=== PATIENT | female | born 1955 | race Caucasian/White ===

== ENCOUNTER → 2016-09-20 | Outpatient (CLI) | payer MEDICAID ==
[~2016-09-20] MED LIST: ACHD5005 PO; ALLERGY MED PO; ALPR.25T PO; AMIT10TA6 PO; ANTI GAS PO; B 12 PO; BETH25TA PO; BSP10T PO; BSP5T PO; CALC-823 PO; CEFD300C3 PO; CELE50CA PO; CEPH500C PO; CETI10CA PO; CHOL200010 PO; CLIN-62 PO; CYCL10TA9 PO; DIAZ-345 PO; DIAZ5TAB PO; DICL500C PO; DIPH25CA79 PO; ESTR0.5T PO; ESTR10TA VG; ESTR2TAB PO; ESTR2TAB4 PO; ESTRADIOL 2 MG PO; ESTRADIOL IM; FLT05NA16; FLT05NA16 NSEACH; GABA-488 PO; GABA300C PO; GABA600T PO; GADOBUTROL 7.5 MMOL/7.5 ML (GADAVIST) VIAL IV ONE; GBPN100C PO; GBPN600T PO; HYDR-3584 PO; HYDR-3812 PO; HYDR1TAB PO; IBUP-1773 PO; KETO-22 PO; LACT1CAP62 PO; LEVO120C PO; LEVO500T2 PO; LEVO5TAB2 PO; LEVO80CA PO; LRT10T PO; MAG355OR19 PO; MAGN500C15 PO; MECL-124 PO; MELA1TAB11 PO; MELA3TAB36 PO; METH4TAB PO; METR500T PO; MIRT15TA6 PO; MOTRIN 600MG PO; MULT-35 PO; NITR-65 PO; NITR100C3 PO; NITR50CA PO; OMEP20TA2 PO; ONDA-42 SL; ONDA4TAB11 PO; ONDA8TAB6 PO; PHEN-639 PO; PRED20TA PO; PRM25T PO; PROM25SU10 PR; SCOP1PAT TD; TRAM50TA2 PO; TRZ100T PO; VILA20TA PO; VITA-37 PO; VITAMIN PO; VNL75T PO; [UNRECOGNIZED DRUG - CODE] IJ
[2016-09-20 09:38] LABS: BLOOD UREA NITROGEN 8 MG/DL (7-18); BUN/CREATININE RATIO 12; CREATININE SERUM 0.68 MG/DL (0.60-1.30); GFR ESTIMATED > 60
--- NOTE | 2016-09-20 11:21 | Diagnostic Imaging Report ---
PROCEDURE: MR imaging of the brain with and without contrast. TECHNIQUE: Multiplanar, multisequence MR imaging of the brain was performed with and without contrast. INDICATION: Unsteadiness, involuntary movements. COMPARISON: The previous MRI brain exam performed on 08/17/2014 failed to show any sign of an acute abnormality or mass lesion. FINDINGS: On this study, there is still no mass, shift of midline or hemorrhage to indicate an acute intracranial abnormality. There is no abnormal enhancement on the postcontrast series to indicate a neoplastic or infectious process either. Furthermore, there is no signal abnormality arising from the brain on the diffusion series to indicate an area of acute ischemia. The ventricles are not abnormally dilated and stable in size when compared to the previous study. There is no signal abnormality in the periventricular white matter on the FLAIR series to indicate demyelinating disease. There is mild cortical atrophy present. The degree of atrophy is consistent with the patient's age. The sella is not enlarged and expected carotid flow voids are evident bilaterally. The sinuses are generally clear. Orbits are symmetrical and within normal limits. The seventh and eighth nerve complexes are unremarkable. IMPRESSION: There is no evidence for an acute intracranial abnormality. There is no sign of a mass lesion nor is there any evidence for demyelinating disease. When compared to the previous study, there does not appear to have been any adverse change. Dictated by: Dictated on workstation # [id number]
== END ==
LOC: RAD 08:59
PROVIDERS: ATTEND Psychiatry & Neurology Neurology
DX: R27.0 Ataxia, unspecified (principal); M47.12 Other spondylosis with myelopathy, cervical region
CPT/HCPCS: 36415; 70553; 82565; 84520

== ENCOUNTER → 2016-09-27 | Outpatient (CLI) | payer MEDICAID ==
--- NOTE | 2016-09-27 12:40 | Diagnostic Imaging Report ---
PROCEDURE: MR imaging cervical spine with and without contrast. TECHNIQUE: Multiplanar and multisequence MRI of the cervical spine was performed with and without contrast. INDICATION: Ataxia. Unsteadiness and involuntary movements. History of C5-C7 spinal fusion on 01/14/2015. 6 mL of Gadavist is administered intravenously. FINDINGS: Fusion hardware is seen anteriorly with some susceptibility artifact around plate and screws along the vertebral bodies C5, C6 and C7. Assessment of osseous fusion is not sensitive on MRI with no obvious osseous bridging along the disc spaces seen on this exam. This is however better evaluated with CT if needed. There is mild anterior translation of C4 over C5 of 2 mm. There is disc desiccation at all levels. There is mild disc height loss at fusion level C5/6. The spinal cord has normal signal. There is reactive marrow changes suggested around endplates of C4/5 and C7/T1 levels. No suspicious marrow lesion or mass is identified. The foramen magnum and the upper spinal canal are widely patent. C2/3: There is no disc herniation, no spinal canal stenosis. There is mild foraminal narrowing on the right side related to facet arthropathy. No foraminal stenosis on the left. C3/4: There is a small posterolateral right disc spur complex with adjacent mild hypertrophy of the right uncovertebral joint. There is no spinal canal stenosis. There is also facet hypertrophy of moderate degree on the right side. This results in mild to moderate foraminal stenosis on the right and no significant foraminal stenosis on the left. C4/5: There is mild anterior translation of the vertebral bodies at this level. There is a spur disc complex with no spinal canal stenosis. The foramina demonstrate moderate to severe stenosis on the left and mild stenosis on the right. C5/6: There is anterior fusion changes seen. There is presumably discectomy performed at this level with remaining posterior spurs or posterior longitudinal ligament thickening resulting in moderate spinal canal stenosis reducing the AP dimension of the central canal to 8 mm. There is a more prominent posterior osteophyte seen in the left paracentral region resulting in reducing the AP dimension of the spinal canal at the left paracentral area to 6.8 mm and resulting in mild cord compression. Consider possibility of scarring in the anterior epidural space as well given the mild enhancement seen. No cord signal abnormality is seen. The neural foramina demonstrate bilateral severe foraminal stenosis from prominent uncovertebral joint hypertrophy. C6-7: Postfusion changes are seen with possibly discectomy performed at this level. There is suggestion of remaining disc material, scarring possibly given the slight enhancement or osteophytes however and associated with spinal canal stenosis of moderate degree reducing the AP dimension of the spinal canal centrally to 7.4 mm without associated significant cord compression. There is minimal flattening of the anterior margin of the spinal cord however along its left side aspect. The neural foramina at this level demonstrates severe stenosis bilaterally worse on the left side. C7/T1: There is a minimal disc herniation. There is no central canal stenosis and only mild foraminal narrowing suggested on the right side from facet hypertrophy. No significant foraminal narrowing on the left. Also within the [id number], there is prominent disc herniation at T2/T3 level seen with no associated spinal canal stenosis or cord compression. IMPRESSION: There is remaining moderate spinal canal stenosis at C5/6 and C6/7 levels appears to relate to remnants of posterior longitudinal ligament thickening and possible scarring or less likely remnant disc material components. This results in mild cord compression at C5/6 level with no cord edema. There is also multilevel neural foraminal narrowing as described. Dictated by: Dictated on workstation # [id number]
== END ==
LOC: RAD 09:35
PROVIDERS: ATTEND Psychiatry & Neurology Neurology
DX: R27.0 Ataxia, unspecified (principal); M47.12 Other spondylosis with myelopathy, cervical region
CPT/HCPCS: 72156

== ENCOUNTER 2016-10-23 13:17 | Emergency (ER) | payer MEDICAID ==
[~2016-10-23] VITALS: Ht 162.6 cm; Wt 65.8 kg
[~2016-10-23 13:17] MED LIST changes: -GADOBUTROL 7.5 MMOL/7.5 ML (GADAVIST) VIAL IV ONE; -METH4TAB PO
--- NOTE | 2016-10-23 13:59 | ED Neurological Problem ---
General Chief Complaint: Head/Cervical Problems Stated Complaint: LEFT ARM/LIPS NUMB Nursing Triage Note: PT STATES PAIN AND NUMBNESS DOWN L ARM AND L MOUTH. STATES SHE HAS HAD CERVICAL KASSANDRA/PAIN FOR A COUPLE YEARS SEES DR BORJA(NEURO) AND PT. Nursing Sepsis Screen: No Definite Risk Source: patient, RN notes reviewed Exam Limitations: no limitations History of Present Illness Time seen by provider: 13:59 Allergies and Home Medications Allergies Coded Allergies: iodine (Unverified Allergy, Severe, HIVES, 01/06/11) morphine (Unverified Allergy, Severe, HIVES, 01/06/11) Home Medications Amitriptyline HCl 10 Mg Tablet, 10 MG PO HS, #30 (Reported) Bethanechol Chloride 25 Mg Tablet, 25 MG PO ACHS, #20 1 po ac and hs for 3-5 days. Post operative urinary retention/spasm Prescribed by: KYLE CHAVEZ on 05/20/15 0843 Buspirone Hcl 10 Mg Tablet, 20 MG PO TID, #90 (Reported) TAKE 2 (10MG) TABS Calcium Carbonate 500 Mg Tablet, 500 MG PO DAILY, (Reported) Cholecalciferol 2,000 Unit Tablet, 2,000 UNIT PO DAILY, (Reported) Cyclobenzaprine Hcl 10 Mg Tablet, 10 MG PO BID, (Reported) Diazepam 5 Mg Tablet, 5 MG PO TID PRN for SPASMS, #6 Ref 0 Prescribed by: QI LAWRENCE on 05/23/152100 Estradiol 10 Mcg Tablet, 10 MCG VG TWICE WEEKLY, #9 (Reported) takes Sunday and Sunday nights Estradiol 2 Mg Tablet, 2 MG PO DAILY, (Reported) Fluticasone Propionate 16 Gm Beatrice, 1 SPRAY NSEACH DAILY, (Reported) Gabapentin 300 Mg Capsule, 600 MG PO BID, (Reported) take 2 (300mg) tabs Hydroxyzine HCl 10 Mg Tablet, 10 MG PO TID PRN for ANXIETY, (Reported) Ibuprofen 600 Mg Tablet, 600 MG PO Q6H, #80 Prescribed by: KYLE CHAVEZ on 05/20/15 0843 Lactobacillus Acidophilus 1 Each Capsule, 1 EACH PO DAILY, (Reported) Levofloxacin 500 Mg Tablet, 500 MG PO DAILY, #5 Prescribed by: DEMETRIUS RUBIO on 04/24/16 1125 Levomilnacipran Hydrochloride 120 Mg Cap.sa.24h, 120 MG PO DAILY, (Reported) Magnesium Oxide 500 Mg Capsule, 500 MG PO DAILY, (Reported) Multivitamin 1 Each Tablet, 1 EACH PO DAILY, (Reported) Ondansetron 4 Mg Tab.rapdis, 4 MG PO Q4H PRN for NAUSEA/VOMITING, #10 Ref 0 Prescribed by: QI LAWRENCE on 05/23/152100 Tramadol HCl 50 Mg Tablet, 50 MG PO Q6H PRN for PAIN, #60 Prescribed by: KYLE CHAVEZ on 05/20/15 0843 Past [id number]-Frenrb Hx Patient Social History Alcohol Use: Denies Use Recreational Drug Use: No Smoking Status: Current Everyday Smoker Recent Foreign Travel: No Contact w/Someone Who Travel: No Recent Infectious Disease Expo: No Recent Hopitalizations: Yes (depression, hysterectomy) Immunizations Up To Date Tetanus Booster (TDap): More than 5yrs PED Vaccines UTD: No Date of Pneumonia Vaccine: Mar 31, 2013 Date of Influenza Vaccine: Apr 21, 2015 Seasonal Allergies Seasonal Allergies: No Surgeries HX Surgeries: Yes (neck fusion, bladder tie up, ovarian cystectomy, cystocele/ rectocele Thurs) Surgeries: Adenoidectomy, Appendectomy, Bladder Surgery, Eye Surgery, Gallbladder, Hysterectomy, Oophorectomy, Tonsillectomy Respiratory Hx Respiratory Disorders: No Cardiovascular Hx Cardiac Disorders: Yes Cardiac Disorders: Hypertension Neurological Hx Neurological Disorders: Yes (STENOSIS OF THE SPINE) Neurological Disorders: Brain Tumor, Headaches /Migraines, Vertigo Reproductive System Hx Reproductive Disorders: No Sexually Transmitted Disease: No HIV/AIDS: No 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 History: Hysterectomy Genitourinary Hx Genitourinary Disorders: Yes (UTI) Genitourinary Disorders: Bladder Infection, UTI-Chronic Gastrointestinal Hx Gastrointestinal Disorders: Yes Gastrointestinal Disorders: Gastroesophageal Reflux, Irritable Bowel Musculoskeletal Hx Musculoskeletal Disorders: Yes (STENOSIS) Musculoskeletal Disorders: Fibromyalgia Endocrine Hx Endocrine Disorders: No HEENT HX ENT Disorders: Yes (cataracts removed, glasses, full set of dentures) HEENT Disorders: Cataract Cancer Hx Cancer: No Cancer: Brain Psychosocial Hx Psychiatric Problems: Yes Behavioral Health Disorders: Anxiety, Depression Integumentary HX Skin/Integumentary Disorder: No Blood Transfusions Hx Blood Disorders: No Adverse Reaction to a Blood Tr: No Family Medical History Significant Family History: No Pertinent Family Hx Family Medial History: Alcoholism 19 FATHER Alzheimer's disease 19 MOTHER Arthritis 19 FATHER 19 MOTHER Cardiovascular disease 19 FATHER (massive heart attack) 19 MOTHER (Mitrial valve prolapse, Stroke Multi.) Cataracts G8 SISTER Completed stroke 19 MOTHER Deafness or hearing loss G8 SISTER Dementia 19 MOTHER Diabetes mellitus 19 MOTHER Fibrocystic disease of breast G8 SISTER Hypercholesterolemia 19 FATHER 19 MOTHER G8 BROTHER G8 SISTER G8 SISTER Osteoporosis G8 SISTER Seizure disorder 19 FATHER Severe allergy G8 BROTHER G8 SISTER Thyroid disease 19 MOTHER G8 BROTHER G8 SISTER G8 SISTER No Family History of: AIDS Abdominal aortic aneurysm Vitor's disease Aphasia Asthma Cancer of mouth Colon cancer Congenital disease Coronary thrombosis Cystic fibrosis Drug abuse Dysphasia Glaucoma Headache disorder Hypertension Infertility Kidney disease Not obtainable due to adoption Parkinson's disease Prostate cancer Psychosocial problem Respiratory disorder Tuberculosis Physical Exam Vital Signs Vital Sign - Last 12Hours 10/23/16 13:17 Temp 98.4 Pulse 108 Resp 16 B/P (MAP) 147/76 Capillary Refill : Less Than 3 Seconds Progress/Results/Core Measures Results/Orders Lab Results Laboratory Tests Test 10/23/16 14:28 Range/Units White Blood Count 7.0 4.3-11.0 10^3/uL Red Blood Count 4.29 L 4.35-5.85 10^6/uL Hemoglobin 13.5 11.5-16.0 G/DL Hematocrit 39 35-52 % Mean Corpuscular Volume 91 80-99 FL Mean Corpuscular Hemoglobin 32 25-34 PG Mean Corpuscular Hemoglobin Concent 34 32-36 G/DL Red Cell Distribution Width 12.1 10.0-14.5 % Platelet Count 222 130-400 10^3/uL Mean Platelet Volume 9.8 7.4-10.4 FL Neutrophils (%) (Auto) 53 42-75 % Lymphocytes (%) (Auto) 37 12-44 % Monocytes (%) (Auto) 10 0-12 % Eosinophils (%) (Auto) 0 0-10 % Basophils (%) (Auto) 0 0-10 % Neutrophils # (Auto) 3.7 1.8-7.8 X 10^3 Lymphocytes # (Auto) 2.6 1.0-4.0 X 10^3 Monocytes # (Auto) 0.7 0.0-1.0 X 10^3 Eosinophils # (Auto) 0.0 0.0-0.3 10^3/uL Basophils # (Auto) 0.0 0.0-0.1 10^3/uL Sodium Level 128 L 135-145 MMOL/L Potassium Level 4.1 3.6-5.0 MMOL/L Chloride Level 92 L 98-107 MMOL/L Carbon Dioxide Level 29 21-32 MMOL/L Anion Gap 7 5-14 MMOL/L Blood Urea Nitrogen 5 L 7-18 MG/DL Creatinine 0.61 0.60-1.30 MG/DL Estimat Glomerular Filtration Rate > 60 BUN/Creatinine Ratio 8 Glucose Level 80 70-105 MG/DL Calcium Level 8.4 L 8.5-10.1 MG/DL Magnesium Level 2.0 1.8-2.4 MG/DL Total Bilirubin 0.3 0.1-1.0 MG/DL Aspartate Amino Transf (AST/SGOT) 12 5-34 U/L Alanine Aminotransferase (ALT/SGPT) 9 0-55 U/L Alkaline Phosphatase 64 40-136 U/L Total Protein 5.8 L 6.4-8.2 G/DL Albumin 3.6 3.2-4.5 G/DL Valproic Acid (Depakene) Level 64.6 50.0-100.0 UG/ML My Orders Orders - KATELYN SHIRLEY DO Cbc With Automated Diff (10/23/16 13:55) Comprehensive Metabolic Panel (10/23/16 13:55) Magnesium (10/23/16 13:55) Valproic Acid (10/23/16 13:55) Ct Head Wo (10/23/16 14:25) Dexamethasone Pf Injection (Decadron Pf (10/23/16 15:45) Vital Signs/I&O Vital Sign - Last 12Hours 10/23/16 13:17 Temp 98.4 Pulse 108 Resp 16 B/P (MAP) 147/76 Blood Pressure Mean: 99 Departure Impression Impression: Primary Impression: Neural foraminal stenosis of cervical spine Additional Impression: Radicular pain of left upper extremity Disposition: 01 HOME, SELF-CARE Condition: Stable Departure-Patient Inst. Decision time for Depature: 15:39 Referrals: [facility] (PCP/Family) Primary Care Physician Patient Instructions: Radiculopathy (DC) Scripts Methylprednisolone (Medrol) 4 Mg Tab.ds.pk 4 MG PO UD, #1 PKG 0 Refills Prov: KATELYN SHIRLEY DO 10/23/16 KATELYN SHIRLEY DO October 23, 2016 13:59
[2016-10-23 14:34] LABS: BASOPHILS % (AUTO) 0 % (0-10); EOSINOPHILS % (AUTO) 0 % (0-10); LYMPHOCYTES # (AUTO) 2.6 X 10^3 (1.0-4.0); LYMPHOCYTES % (AUTO) 37 % (12-44); MEAN CORPUSCULAR HEMOGLOBIN 32 PG (25-34); MEAN CORPUSCULAR HGB CONC 34 G/DL (32-36); MEAN CORPUSCULAR VOLUME 91 FL (80-99); MEAN PLATELET VOLUME 9.8 FL (7.4-10.4); MONOCYTES # (AUTO) 0.7 X 10^3 (0.0-1.0); MONOCYTES % (AUTO) 10 % (0-12); NEUTROPHILS # (AUTO) 3.7 X 10^3 (1.8-7.8); NEUTROPHILS % (AUTO) 53 % (42-75); PLATELET COUNT 222 10^3/uL (130-400); RED BLOOD COUNT 4.29 10^6/uL (4.35-5.85); RED CELL DISTRIBUTION WIDTH 12.1 % (10.0-14.5)
[2016-10-23 14:58] LABS: ALANINE AMINOTRANSFERASE 9 U/L (0-55); ALBUMIN 3.6 G/DL (3.2-4.5); ANION GAP 7 MMOL/L (5-14); ASPARTATE AMINO TRANSFERASE 12 U/L (5-34); BILIRUBIN,TOTAL 0.3 MG/DL (0.1-1.0); BLOOD UREA NITROGEN 5 MG/DL (7-18); BUN/CREATININE RATIO 8; CALCIUM 8.4 MG/DL (8.5-10.1); CARBON DIOXIDE 29 MMOL/L (21-32); CHLORIDE 92 MMOL/L (98-107); CREATININE SERUM 0.61 MG/DL (0.60-1.30); GFR ESTIMATED > 60; GLUCOSE 80 MG/DL (70-105); POTASSIUM 4.1 MMOL/L (3.6-5.0); SODIUM 128 MMOL/L (135-145); TOTAL PROTEIN 5.8 G/DL (6.4-8.2)
[2016-10-23 15:04] LABS: VALPROIC ACID 64.6 UG/ML (50.0-100.0)
--- NOTE | 2016-10-23 15:20 | Diagnostic Imaging Report ---
INDICATION: Left arm and lip numbness and headaches. Noncontrast brain CT is performed. There are no extra-axial fluid collections. No intracranial hemorrhage. No intracranial mass or mass effect. No midline shift. The ventricles are normal in size and position. There are no focal parenchymal abnormalities in the brain. Calvarial windows are unremarkable. IMPRESSION: Negative noncontrast brain CT. Dictated by: Dictated on workstation # [id number]
[2016-10-23] MEDS ORDERED: METH4TAB PO (15:40)
[2016-10-23] MEDS ORDERED: DEXAMETHASONE PF 10 MG/ML (DECADRON) VIAL IM ONE (15:45)
[2016-10-23 15:47] VITALS: BP 128/92
== END 2016-10-23 15:48 | disposition home or self-care (01) ==
LOC: EDUNIT# 13:17 → ER 13:19
DX: M48.02 Spinal stenosis, cervical region (principal); M54.12 Radiculopathy, cervical region; I10 Essential (primary) hypertension; F17.210 Nicotine dependence, cigarettes, uncomplicated; Z79.899 Other long term (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
CPT/HCPCS: 36415; 70450; 80053; 80164; 83735; 85025; 96372; 99282

== ENCOUNTER → 2016-10-24 | Outpatient (RCR) | payer MEDICAID ==
--- OUTSIDE RECORDS SUMMARY | 2016-07-25 09:10 | XMS REPORT | Continuity of Care Document ---
Author Author [facility] Organization [facility] Address Unknown Phone Unavailable Care Team Providers Care Auto Body Estimator Name Role Phone Elif Gallardo PCP [phone] Source Comments Some departments are not documenting in the electronic medical record. If you do not see the information that you expected, contact Release of Information in the Health Information Management department at [phone] for further assistance in locating additional records.[facility] Active Allergies and Adverse Reactions Allergen Noted Date Severity Reactions Comments Iodine 06/18/1974 Medium HIVES topical Morphine 06/18/1974 Medium HIVES Current Medications Prescription Sig. Disp. Refills Start End Date Status Date levomilnacipran (FETZIMA) Take 120 mg by mouth Active 120 mg Cs24 daily. fluticasone (FLONASE) 50 Apply 2 Sprays to each Active mcg/actuation nasal spray nostril as directed daily. cholecalciferol (VITAMIN Take 2,000 Units by mouth Active D-3) 1,000 units tablet daily. Pt states taking 74434 units daily magnesium oxide 400 mg Take 1 Cap by mouth 30 Cap 1 10/23/19 Active cap daily. 15 diphenhydrAMINE Take 25 mg by mouth every Active (BENADRYL) 25 mg capsule 6 hours as needed (headache (to take with magnesium, naproxen)). estradiol (ESTRACE) 2 mg Take 2 mg by mouth every Active tablet morning. cyclobenzaprine Take 1 Tab by mouth twice 60 Tab 5 03/17/20 Active (FLEXERIL) 10 mg tablet daily. 15 hydrOXYzine (ATARAX) 10 Take 10 mg by mouth three Active mg tablet times daily as needed for Itching. cyclobenzaprine TAKE ONE TABLET BY MOUTH 60 Tab 6 03/22/20 Active (FLEXERIL) 10 mg tablet TWICE DAILY 15 ibuprofen (MOTRIN) 600 mg Take 600 mg by mouth Active tablet every 6 hours as needed for Pain. diazepam (VALIUM) 5 mg Take 5 mg by mouth every Active tablet 6 hours as needed for Anxiety. Pt taking 2mg bid estradiol(+) (VAGIFEM) 10 Insert or Apply 10 mcg to Active mcg vaginal tablet vaginal area twice weekly. Insert one tablet vaginally daily for two weeks; then insert one tablet twice weekly. cetirizine (ZYRTEC) 10 mg Take 10 mg by mouth Active tablet daily. cyanocobalamin (VITAMIN Inject 1 mL to area(s) as Active B-12, RUBRAMIN) 1,000 directed every 30 days. mcg/mL injection Pt states she takes 5000 mcg SubQ daily. Lactobacillus rhamnosus Take by mouth daily with Active GG (LACTOBACILLUS breakfast. RHAMNOSUS (GG)) 15 billion cell cpSP DIVALPROEX SODIUM Take 1,000 mg by mouth at Active (DEPAKOTE PO) bedtime daily. MELATONIN PO Take 5 mg by mouth at Active bedtime daily. pantoprazole DR 07/03/19 Active (PROTONIX) 20 mg tablet 17 loratadine (CLARITIN) 10 06/28/19 Active mg tablet 17 divalproex (DEPAKOTE ER) 06/29/19 Active 500 mg ER tablet 17 QNASL 80 mcg/actuation 07/04/19 Active nasal spray 17 diclofenac(+) (VOLTAREN) Apply 2 g topically to 1 Tube 5 07/19/19 Active 1 % topical gel affected area four times 17 daily. lidocaine-prilocaine apply small amount to 30 g 3 07/19/19 Active (EMLA) 2.5-2.5 % topical affected area 17 cream Active Problems Problem Noted Date Paresthesia 10/22/2014 Status migrainosus 10/22/2014 Cervical stenosis of spine 10/22/2014 Headache 09/24/2014 Positional vertigo 09/24/2014 Lytic bone lesions on xray 08/31/2014 Most Recent Encounters Date Type Specialty Providers Description 07/19/2016 Office Visit Rehabilitation Medicine Ger Cain MD Cervical stenosis of spine (Primary Dx); H/O cervical spinal arthrodesis; Myalgia; Cervical strain, sequela; Neck pain Social History Tobacco Use Types Packs/Day Years Used Date Current Every Day Smoker Cigarettes 1 43 Smokeless Tobacco: Never Used Tobacco Cessation: Counseling Given: Yes Comments: Alcohol Use Drinks/Week oz/Week Comments No Last Filed Vital Signs Vital Sign Reading Time Taken Blood Pressure 128/75 07/19/2016 12:59 PM TIE BUCKER Pulse 112 07/19/2016 12:59 PM TIE BUCKER Temperature 36.7 C (98 F) 03/28/2016 12:06 PM CDT Respiratory Rate 16 03/28/2016 12:06 PM CDT Height 1.626 m (5' 4") 07/19/2016 12:59 PM TIE BUCKER Weight 63.504 kg (140 lb) 07/19/2016 12:59 PM TIE BUCKER Body Mass Index 24.02 07/19/2016 12:59 PM TIE BUCKER Oxygen Saturation 98% 03/28/2016 12:06 PM CDT Plan of Care Date Type Specialty Providers Description 09/06/2016 Appointment Rehabilitation Medicine Ger Cain MD [address] [facility] [address] [place] [address] [phone] (Fax) Health Maintenance Due Date Last Done Comments Hepatitis C Screening 1955 Physical (Comprehensive) 12/28/1963 Exam Pertussis Vaccine 12/28/1967 Tetanus Vaccine 1973 Cervical Cancer Screening 1977 Breast Cancer Screening 1996 Colorectal Cancer 2006 Screening Influenza Vaccine 02/17/2016 Results from Last 3 Months Not on file
--- OUTSIDE RECORDS SUMMARY | 2016-07-26 08:45 | XMS REPORT | Continuity of Care Document ---
Author Author [facility] Organization [facility] Address Unknown Phone Unavailable Care Team Providers Care Panelbeater Name Role Phone Elif Gallardo PCP [phone] Source Comments Some departments are not documenting in the electronic medical record. If you do not see the information that you expected, contact Release of Information in the Health Information Management department at [phone] for further assistance in locating additional records.[facility] Active Allergies and Adverse Reactions Allergen Noted [...] 1,000 units tablet daily. Pt states taking 06585 units daily magnesium oxide 400 mg Take [...] Recent Encounters Date Type Specialty Providers Description 07/25/2016 Telephone Rehabilitation Medicine Ger Cain MD Follow Up 07/19/2016 Office Visit Rehabilitation Medicine Ger Cain [...] Taken Blood Pressure 128/75 07/19/2016 12:59 PM MANAGER WORK Pulse 112 07/19/2016 12:59 PM MANAGER WORK Temperature 36.7 C (98 F) 03/28/2016 12:06 PM CDT Respiratory Rate 16 03/28/2016 12:06 PM CDT Height 1.626 m (5' 4") 07/19/2016 12:59 PM MANAGER WORK Weight 63.504 kg (140 lb) 07/19/2016 12:59 PM MANAGER WORK Body Mass Index 24.02 07/19/2016 12:59 PM MANAGER WORK Oxygen Saturation 98% 03/28/2016 12:06 PM CDT Plan of Care Date Type Specialty Providers Description 09/06/2016 Appointment Rehabilitation Medicine Ger Cain MD [address] [facility] [address] [place] [address] [phone] (Fax) Health Maintenance Due Date Last Done Comments Hepatitis C Screening 1955 Physical (Comprehensive) 12/28/1963 Exam Pertussis Vaccine 12/28/1967 Tetanus Vaccine 1973 Cervical Cancer Screening 1977 Breast Cancer Screening 1996 Colorectal Cancer 2006 Screening Influenza Vaccine 02/17/2016 Results from Last 3 Months Not on file
[~2016-10-24] MED LIST changes: +METH4TAB PO
== END | disposition home or self-care (01) ==
PROVIDERS: ATTEND Student in an Organized Health Care Education/Training Program
DX: M48.02 Spinal stenosis, cervical region (principal); M79.1 Myalgia; Z98.1 Arthrodesis status

== ENCOUNTER 2016-10-27 13:20 | Outpatient (RCR) | payer MEDICAID | END 2016-10-27 15:20 | disposition home or self-care (01) | PROVIDERS: ATTEND Student in an Organized Health Care Education/Training Program | DX: M48.02 Spinal stenosis, cervical region (principal); M79.1 Myalgia; Z98.1 Arthrodesis status ==

== ENCOUNTER → 2016-11-03 | Outpatient (CLI) | payer MEDICAID ==
[~2016-11-03] VITALS: Ht 162.6 cm; Wt 65.9 kg
[~2016-11-03] MED LIST changes: +BECL8.7H NS; +CHOL200025 PO; +CYAN50008 PO; +DIVA-21 PO; +LACT1CAP72 PO; +LORA10TA76 PO; +MELA5TAB14 PO; +PANT20TA2 PO; +SELE200T11 PO
== END ==
LOC: PREOP 05:34
PROVIDERS: ATTEND Surgery
DX: Z01.818 Encounter for other preprocedural examination (principal); Z86.010 Personal history of colon polyps

== ENCOUNTER → 2016-11-19 | Outpatient (CLI) | payer MEDICAID | LOC: LAB 15:57 | PROVIDERS: ATTEND Nurse Practitioner Family | DX: N30.01 Acute cystitis with hematuria (principal) | CPT/HCPCS: 87088 ==

== ENCOUNTER 2016-11-25 13:48 | Emergency (ER) | payer MEDICAID ==
[~2016-11-25] VITALS: Ht 162.6 cm; Wt 65.8 kg
[2016-11-25] MEDS ORDERED: NS IV 1000 ML 1,000 ML IV ONE (15:23)
[2016-11-25] MEDS ORDERED: PHENAZOPYRIDINE 100 MG (PYRIDIUM) TABLET PO ONE (15:30)
[2016-11-25 16:09] LABS: BASOPHILS # (AUTO) 0.1 10^3/uL (0.0-0.1); BASOPHILS % (AUTO) 1 % (0-10); EOSINOPHILS % (AUTO) 0 % (0-10); LYMPHOCYTES # (AUTO) 2.8 X 10^3 (1.0-4.0); LYMPHOCYTES % (AUTO) 43 % (12-44); MEAN CORPUSCULAR HEMOGLOBIN 32 PG (25-34); MEAN CORPUSCULAR HGB CONC 34 G/DL (32-36); MEAN CORPUSCULAR VOLUME 92 FL (80-99); MEAN PLATELET VOLUME 9.5 FL (7.4-10.4); MONOCYTES # (AUTO) 0.8 X 10^3 (0.0-1.0); MONOCYTES % (AUTO) 11 % (0-12); NEUTROPHILS % (AUTO) 45 % (42-75); PLATELET COUNT 237 10^3/uL (130-400); RED BLOOD COUNT 3.97 10^6/uL (4.35-5.85); WHITE BLOOD COUNT 6.6 10^3/uL (4.3-11.0)
[2016-11-25 16:10] LABS: BILIRUBIN,URINE NEGATIVE (NEGATIVE); KETONES,URINE NEGATIVE (NEGATIVE); LEUKOCYTE ESTERASE ,URINE NEGATIVE (NEGATIVE); NITRITE,URINE NEGATIVE (NEGATIVE); PH,URINE 7 (5-9); PROTEIN,URINE NEGATIVE (NEGATIVE); UROBILINOGEN,URINE NORMAL (NORMAL)
[2016-11-25 16:28] LABS: ALANINE AMINOTRANSFERASE 10 U/L (0-55); ALBUMIN 3.6 G/DL (3.2-4.5); ANION GAP 8 MMOL/L (5-14); ASPARTATE AMINO TRANSFERASE 12 U/L (5-34); BILIRUBIN,TOTAL 0.2 MG/DL (0.1-1.0); BLOOD UREA NITROGEN 7 MG/DL (7-18); BUN/CREATININE RATIO 9; CALCIUM 8.6 MG/DL (8.5-10.1); CARBON DIOXIDE 26 MMOL/L (21-32); CHLORIDE 93 MMOL/L (98-107); CREATININE SERUM 0.78 MG/DL (0.60-1.30); GFR ESTIMATED > 60; GLUCOSE 89 MG/DL (70-105); POTASSIUM 4.2 MMOL/L (3.6-5.0); SODIUM 127 MMOL/L (135-145); TOTAL PROTEIN 6.1 G/DL (6.4-8.2)
[2016-11-25 16:41] LABS: SQUAMOUS EPITHELIAL CELL,UR 0-2 /HPF
--- NOTE | 2016-11-25 17:51 | ED GU-Female ---
General Chief Complaint: -Female Stated Complaint: UNABLE TO URINATE Nursing Triage Note: hematuria 5 weeks ago due to UTI. she was treated with bactrim et pyridium. on 11/02/16 she was seen at [facility] with hematuria. again treated with bactrim et pyridium, symptoms improved but recurring. now c/o inability to urinate. last urination was last night. Nursing Sepsis Screen: No Definite Risk History of Present Illness Time seen by provider: 15:15 Initial Comments evaluation for urinary retention, he patient states she last urinated at 0300. She has been treated recently with Bactrim and Pyridium for UTI. She has a history of previous partial hysterectomy with bladder surgery by Dr. Chavez. she denies sexual activity, vaginal discharge, or history of STDs. Timing/Duration: this morning Severity/Quality: mild Location: suprapubic Radiation: none Activities at Onset: none Prior Genitourinary Problems: similar symptoms Sexual [place] History: not active Associated Symptoms: denies symptoms Allergies and Home Medications Allergies Coded Allergies: iodine (Unverified Allergy, Severe, HIVES, 11/03/16) morphine (Unverified Allergy, Severe, HIVES, 11/03/16) Home Medications Beclomethasone Dipropionate 8.7 Gm Hfa.aer.ad, 8.7 GM NS DAILY, (Reported) Cholecalciferol (Vitamin D3) 2,000 Unit Tablet, 2,000 UNIT PO DAILY, (Reported) Cyanocobalamin (Vitamin B-12) 5,000 Mcg Tab.rapdis, 5,000 MCG PO DAILY, ( Reported) Cyclobenzaprine HCl 10 Mg Tablet, 10 MG PO BID PRN for SPASMS, (Reported) Divalproex Sodium 500 Mg Tab.er.24h, 1,000 MG PO HS, (Reported) Estradiol 2 Mg Tablet, 2 MG PO DAILY, (Reported) Estradiol 10 Mcg Tablet, 10 MCG VG TWICE A WEEK, (Reported) Hydroxyzine HCl 10 Mg Tablet, 10 MG PO PRN PRN for ANXIETY, (Reported) Lactobacillus Combo No.10 1 Each Capsule, 1 EACH PO DAILY, (Reported) Levomilnacipran Hydrochloride 120 Mg Cap.sa.24h, 120 MG PO DAILY, (Reported) Loratadine 10 Mg Tablet, 10 MG PO DAILY, (Reported) Magnesium Oxide 500 Mg Capsule, 500 MG PO DAILY, (Reported) Melatonin 5 Mg Tablet, 5 MG PO HS, (Reported) Pantoprazole Sodium 20 Mg Tablet.dr, 20 MG PO DAILY, (Reported) Selenomethionine 200 Mcg Tablet, 200 MCG PO DAILY, (Reported) Constitutional: no symptoms reported, see HPI EENTM: no symptoms reported, see HPI Respiratory: no symptoms reported, see HPI Cardiovascular: no symptoms reported, see HPI Gastrointestinal: no symptoms reported, see HPI Genitourinary: see HPI, other (retention) : No Musculoskeletal: no symptoms reported, see HPI Skin: no symptoms reported, see HPI Psychiatric/Neurological: No Symptoms Reported, See HPI Endocrine: No Symptoms Reported, See HPI Hematologic/Lymphatic: No Symptoms Reported, See HPI All Other Systemes Reviewed Negative Unless Noted: Yes Past Wzwfntc-Gtxcaj-Sskgge Hx Patient Social History Alcohol Use: Denies Use Recreational Drug Use: No Smoking Status: Current Everyday Smoker Type Used: Cigarettes Recent Foreign Travel: No Contact w/Someone Who Travel: No Recent Infectious Disease Expo: No Recent Hopitalizations: No Immunizations Up To Date Tetanus Booster (TDap): More than 5yrs PED Vaccines UTD: No Date of Pneumonia Vaccine: Mar 27, 2016 Date of Influenza Vaccine: Mar 27, 2016 Seasonal Allergies Seasonal Allergies: Yes Surgeries HX Surgeries: Yes (neck fusion, bladder tie up, ovarian cystectomy, cystocele/ rectocele ) Surgeries: Adenoidectomy, Appendectomy, Bladder Surgery, Eye Surgery, Gallbladder, Hysterectomy, Oophorectomy, Tonsillectomy Respiratory Hx Respiratory Disorders: No Cardiovascular Hx Cardiac Disorders: No Cardiac Disorders: Hypertension Neurological Hx Neurological Disorders: Yes Neurological Disorders: Headaches /Migraines, Vertigo Reproductive System Hx Reproductive Disorders: No Sexually Transmitted Disease: No HIV/AIDS: No Female Reproductive Disorders: Ovarian Cyst CUSHION FORMER History: Hysterectomy Genitourinary Hx Genitourinary Disorders: No Genitourinary Disorders: Bladder Infection, UTI-Chronic Gastrointestinal Hx Gastrointestinal Disorders: Yes Gastrointestinal Disorders: Gastroesophageal Reflux, Diverticulosis, Polyps, Irritable Bowel Musculoskeletal Hx Musculoskeletal Disorders: Yes (STENOSIS) Musculoskeletal Disorders: Arthritis, Fibromyalgia Endocrine Hx Endocrine Disorders: No HEENT HX ENT Disorders: Yes (cataracts removed, glasses, full set of dentures) HEENT Disorders: Cataract Loss of Vision: Bilateral Hearing Impairment: Denies Cancer Hx Cancer: No Cancer: Brain Psychosocial Hx Psychiatric Problems: Yes Behavioral Health Disorders: Anxiety, Bipolar, Depression Integumentary HX Skin/Integumentary Disorder: No Blood Transfusions Hx Blood Disorders: No Adverse Reaction to a Blood Tr: No (N/A) Reviewed Nursing Assessment Reviewed/Agree w Nursing PMH: Yes Family Medical History Significant Family History: No Pertinent Family Hx Family Medial History: Alcoholism 19 FATHER Alzheimer's disease 19 MOTHER Arthritis 19 FATHER 19 MOTHER Cardiovascular disease 19 FATHER (massive heart attack) 19 MOTHER (Mitrial valve prolapse, Stroke Multi.) Cataracts G8 SISTER Completed stroke 19 MOTHER Deafness or hearing loss G8 SISTER Dementia 19 MOTHER Diabetes mellitus 19 MOTHER Fibrocystic disease of breast G8 SISTER Hypercholesterolemia 19 FATHER 19 MOTHER G8 BROTHER G8 SISTER G8 SISTER Osteoporosis G8 SISTER Seizure disorder 19 FATHER Severe allergy G8 BROTHER G8 SISTER Thyroid disease 19 MOTHER G8 BROTHER G8 SISTER G8 SISTER No Family History of: AIDS Abdominal aortic aneurysm Alborn's disease Aphasia Asthma Cancer of mouth Colon cancer Congenital disease Coronary thrombosis Cystic fibrosis Drug abuse Dysphasia Glaucoma Headache disorder Hypertension Infertility Kidney disease Not obtainable due to adoption Parkinson's disease Prostate cancer Psychosocial problem Respiratory disorder Tuberculosis Physical Exam Vital Signs Vital Sign - Last 12Hours 11/25/16 14:20 Temp 97.8 Pulse 99 Resp 16 B/P (MAP) 121/64 Pulse Ox 98 Capillary Refill : Less Than 3 Seconds General Appearance: WD/WN, no apparent distress HEENT: PERRL/EOMI, normal ENT inspection, TMs normal Neck: non-tender, full range of motion, supple, normal inspection Cardiovascular: normal peripheral pulses, regular rate, rhythm, no edema Respiratory: chest non-tender, lungs clear Gastrointestinal: normal bowel sounds, non tender, soft, no organomegaly, No distended, No guarding, tenderness (mild suprapubic), other (no bladder distention noted) Back: normal inspection, no CVA tenderness, no vertebral tenderness Extremities: normal range of motion, non-tender, normal inspection, no pedal edema, no calf tenderness, normal capillary refill Neurologic/Psychiatric: no motor/sensory deficits, alert, normal mood/affect, oriented x 3 Skin: normal color, warm/dry Lymphatic: no adenopathy Progress/Results/Core Measures Results/Orders Lab Results Laboratory Tests Test 11/25/16 15:50 11/25/16 15:51 Range/Units White Blood Count 6.6 4.3-11.0 10^3/uL Red Blood Count 3.97 L 4.35-5.85 10^6/uL Hemoglobin 12.5 11.5-16.0 G/DL Hematocrit 37 35-52 % Mean Corpuscular Volume 92 80-99 FL Mean Corpuscular Hemoglobin 32 25-34 PG Mean Corpuscular Hemoglobin Concent 34 32-36 G/DL Red Cell Distribution Width 12.0 10.0-14.5 % Platelet Count 237 130-400 10^3/uL Mean Platelet Volume 9.5 7.4-10.4 FL Neutrophils (%) (Auto) 45 42-75 % Lymphocytes (%) (Auto) 43 12-44 % Monocytes (%) (Auto) 11 0-12 % Eosinophils (%) (Auto) 0 0-10 % Basophils (%) (Auto) 1 0-10 % Neutrophils # (Auto) 3.0 1.8-7.8 X 10^3 Lymphocytes # (Auto) 2.8 1.0-4.0 X 10^3 Monocytes # (Auto) 0.8 0.0-1.0 X 10^3 Eosinophils # (Auto) 0.0 0.0-0.3 10^3/uL Basophils # (Auto) 0.1 0.0-0.1 10^3/uL Sodium Level 127 L 135-145 MMOL/L Potassium Level 4.2 3.6-5.0 MMOL/L Chloride Level 93 L 98-107 MMOL/L Carbon Dioxide Level 26 21-32 MMOL/L Anion Gap 8 5-14 MMOL/L Blood Urea Nitrogen 7 7-18 MG/DL Creatinine 0.78 0.60-1.30 MG/DL Estimat Glomerular Filtration Rate > 60 BUN/Creatinine Ratio 9 Glucose Level 89 70-105 MG/DL Calcium Level 8.6 8.5-10.1 MG/DL Total Bilirubin 0.2 0.1-1.0 MG/DL Aspartate Amino Transf (AST/SGOT) 12 5-34 U/L Alanine Aminotransferase (ALT/SGPT) 10 0-55 U/L Alkaline Phosphatase 77 40-136 U/L Total Protein 6.1 L 6.4-8.2 G/DL Albumin 3.6 3.2-4.5 G/DL Urine Color YELLOW Urine Clarity CLEAR Urine pH 7 5-9 Urine Specific [place] 1.010 L 1.016-1.022 Urine Protein NEGATIVE NEGATIVE Urine Glucose (UA) NEGATIVE NEGATIVE Urine Ketones NEGATIVE NEGATIVE Urine Nitrite NEGATIVE NEGATIVE Urine Bilirubin NEGATIVE NEGATIVE Urine Urobilinogen NORMAL NORMAL MG/DL Urine Leukocyte Esterase NEGATIVE NEGATIVE Urine RBC (Auto) NEGATIVE NEGATIVE Urine RBC NONE /HPF Urine WBC NONE /HPF Urine Squamous Epithelial Cells 0-2 /HPF Urine Crystals NONE /LPF Urine Bacteria NEGATIVE /HPF Urine Casts NONE /LPF Urine Mucus NEGATIVE /LPF Urine Culture Indicated NO My Orders Orders - GREG SNOW Cbc With Automated Diff (11/25/16 15:23) Comprehensive Metabolic Panel (11/25/16 15:23) Ua Culture If Indicated (11/25/16 15:23) Saline Lock/Iv-Start (11/25/16 15:23) Ns Iv 1000 Ml (Sodium Chloride 0.9%) (11/25/16 15:23) Phenazopyridine Tablet (Pyridium Tablet) (11/25/16 15:30) Catheter(Urinary) To Dependent (11/25/16 15:41) Medications Given in ED Current Medications Medications Dose Ordered Sig/Jeff Route Start Time Stop Time Status Last Admin Dose Admin Phenazopyridine HCl 100 mg ONCE ONCE PO 11/25/16 15:30 11/25/16 15:31 DC 11/25/16 16:23 100 MG Sodium Chloride 1,000 ml @ 0 mls/hr Q0M ONCE IV 11/25/16 15:23 11/25/16 15:24 DC 11/25/16 16:24 1,000 MLS/HR Vital Signs/I&O Vital Sign - Last 12Hours 11/25/16 11/25/16 14:20 18:08 Temp 97.8 Pulse 99 89 Resp 16 18 B/P (MAP) 121/64 Pulse Ox 98 98 Blood Pressure Mean: 83 Progress Note : Time: 15:15 Progress Note initial evaluation completed, encourage patient to try and obtain a urine specimen. Will complete labs and reevaluate. 1540 patient unable to urinate, she is requesting a urinary catheter. A Lynch catheter will be inserted. 1630 patient has had 300 mils of urine output in the Lynch catheter. Her labs are reviewed which show no evidence of urinary tract infection, hematuria or other abnormality. CBC and CMP within normal limits. 1700 the patient wishes to have the Lynch left in place upon her discharge. [address] Chavez by phone, she agrees to see the patient on Sunday and is okay with her leaving the Lynch in place through the weekend with a leg bag. Departure Impression Impression: Primary Impression: Urinary retention Disposition: 01 HOME, SELF-CARE Condition: Improved Departure-Patient Inst. Decision time for Depature: 17:40 Referrals: [facility] (PCP/Family) Primary Care Physician Patient Instructions: Urinary Retention (DC) Add. Discharge Instructions: Call Dr. Baldwin's office on Sunday morning for appointment. Empty leg bag as needed. Return to emergency department for increased abdominal pain, back pain, fevers or new problems. All discharge instructions reviewed with patient and/or family. Voiced understanding. Copy Copies To 1: KYLE CHAVEZ DO Copies To 2: COLIN ALEXANDRA MD, AMY ARNP Nov 25, 2016 17:51
[2016-11-25 18:08] VITALS: BP 121/64
== END 2016-11-25 18:08 | disposition home or self-care (01) ==
LOC: EDUNIT# 13:48 → ER 13:50
DX: R33.9 Retention of urine, unspecified (principal); K21.9 Gastro-esophageal reflux disease without esophagitis; F17.210 Nicotine dependence, cigarettes, uncomplicated; Z98.890 Other specified postprocedural states
CPT/HCPCS: 36415; 51702; 80053; 81000; 85025

== ENCOUNTER 2016-12-01 08:42 | Emergency (ER) | payer MEDICAID ==
[~2016-12-01] VITALS: Ht 162.6 cm; Wt 65.9 kg
[2016-12-01 09:42] LABS: BASOPHILS % (AUTO) 1 % (0-10); EOSINOPHILS % (AUTO) 1 % (0-10); LYMPHOCYTES # (AUTO) 1.6 X 10^3 (1.0-4.0); LYMPHOCYTES % (AUTO) 21 % (12-44); MEAN CORPUSCULAR HEMOGLOBIN 32 PG (25-34); MEAN CORPUSCULAR HGB CONC 34 G/DL (32-36); MEAN CORPUSCULAR VOLUME 93 FL (80-99); MEAN PLATELET VOLUME 10.2 FL (7.4-10.4); MONOCYTES # (AUTO) 0.9 X 10^3 (0.0-1.0); MONOCYTES % (AUTO) 11 % (0-12); NEUTROPHILS # (AUTO) 5.2 X 10^3 (1.8-7.8); NEUTROPHILS % (AUTO) 67 % (42-75); PLATELET COUNT 241 10^3/uL (130-400); RED BLOOD COUNT 4.54 10^6/uL (4.35-5.85); RED CELL DISTRIBUTION WIDTH 12.3 % (10.0-14.5); WHITE BLOOD COUNT 7.8 10^3/uL (4.3-11.0)
[2016-12-01 09:56] LABS: ALANINE AMINOTRANSFERASE 10 U/L (0-55); ALBUMIN 3.9 GM/DL (3.2-4.5); ANION GAP 10 MMOL/L (5-14); ASPARTATE AMINO TRANSFERASE 15 U/L (5-34); BILIRUBIN,TOTAL 0.3 MG/DL (0.1-1.0); BLOOD UREA NITROGEN 6 MG/DL (7-18); BUN/CREATININE RATIO 9 (0-20); CALCIUM 9.1 MG/DL (8.5-10.1); CARBON DIOXIDE 25 MMOL/L (21-32); CHLORIDE 96 MMOL/L (98-107); CREATININE SERUM 0.64 MG/DL (0.60-1.30); GFR ESTIMATED > 60; GLUCOSE 86 MG/DL (70-105); HEMOLYSIS 17 (0-29); ICTERUS 0.2 (0-1.9); LIPEMIA 5 (0-49); POTASSIUM 4.4 MMOL/L (3.6-5.0); SODIUM 131 MMOL/L (135-145); TOTAL PROTEIN 7.3 GM/DL (6.4-8.2)
[2016-12-01 10:03] LABS: BILIRUBIN,URINE NEGATIVE (NEGATIVE); KETONES,URINE NEGATIVE (NEGATIVE); LEUKOCYTE ESTERASE ,URINE 3+ (NEGATIVE); NITRITE,URINE NEGATIVE (NEGATIVE); PH,URINE 7 (5-9); PROTEIN,URINE 2+ (NEGATIVE); UROBILINOGEN,URINE NORMAL (NORMAL)
[2016-12-01 10:13] LABS: WBC,URINE 50-100 /HPF
[2016-12-01] MEDS ORDERED: CIPROFLOXACIN IV 400MG/200ML 200 ML IV ONE (10:45)
--- NOTE | 2016-12-01 11:07 | ED Abdominal Pain ---
General Chief Complaint: -Female Stated Complaint: UTI/POSS INFECTION Nursing Triage Note: pt reports UTI x 5 weeks with 3 rounds of bactrim. Pt reports last sunday came to this er for uti symptoms and bladder retention. lind placed and ordered to follow up with Dr elaine. Dr Elaine out of town, and [facility] instructed patient to leave lind in until early next week. Pt having increased cramping, feverish, change of urine color, decreased urine output. Antibiotics completed on Sunday. History: self cath, urethral surgery Sepsis Screen: Possible Sepsis Risk Source of Information: Patient History of Present Illness Time Seen By Provider: 11:03 Initial Comments This 60-year-old female presents with dysuria and frequency. The patient has had symptoms of a persistent urinary tract infection for approximately the past 5 weeks for which she has been treated repeatedly with Bactrim. Next Patient has some mild low back pain but no true lateralizing flank pain, fever or chills, vomiting, headache or stiff neck. Next The patient's had a previous hysterectomy with a bladder lift and a urethral tilt. The patient has been employed in a catheter for approximately the last week to help facilitate her urinary retention. The patient is under the care of Dr. Elaine. Allergies and Home Medications Allergies Coded Allergies: iodine (Unverified Allergy, Severe, HIVES, 11/03/16) morphine (Unverified Allergy, Severe, HIVES, 11/03/16) Home Medications Beclomethasone Dipropionate 8.7 Gm Hfa.aer.ad, 8.7 GM NS DAILY, (Reported) Cholecalciferol (Vitamin D3) 2,000 Unit Tablet, 2,000 UNIT PO DAILY, (Reported) Cyanocobalamin (Vitamin B-12) 5,000 Mcg Tab.rapdis, 5,000 MCG PO DAILY, ( Reported) Cyclobenzaprine HCl 10 Mg Tablet, 10 MG PO BID PRN for SPASMS, (Reported) Divalproex Sodium 500 Mg Tab.er.24h, 1,000 MG PO HS, (Reported) Estradiol 2 Mg Tablet, 2 MG PO DAILY, (Reported) Estradiol 10 Mcg Tablet, 10 MCG VG TWICE A WEEK, (Reported) Hydroxyzine HCl 10 Mg Tablet, 10 MG PO PRN PRN for ANXIETY, (Reported) Lactobacillus Combo No.10 1 Each Capsule, 1 EACH PO DAILY, (Reported) Levomilnacipran Hydrochloride 120 Mg Cap.sa.24h, 120 MG PO DAILY, (Reported) Loratadine 10 Mg Tablet, 10 MG PO DAILY, (Reported) Magnesium Oxide 500 Mg Capsule, 500 MG PO DAILY, (Reported) Melatonin 5 Mg Tablet, 5 MG PO HS, (Reported) Pantoprazole Sodium 20 Mg Tablet.dr, 20 MG PO DAILY, (Reported) Selenomethionine 200 Mcg Tablet, 200 MCG PO DAILY, (Reported) Review of Systems Constitutional: No chills, No fever EENTM: No Blurred Vision Respiratory: Denies Cough Cardiovascular: Denies Chest Pain Gastrointestinal: Abdominal Pain Genitourinary: Burning Musculoskeletal: back pain (low back but no flank pain and no lateralization.) Skin: No change in color Psychiatric/Neurological: No Symptoms Reported Endocrine: No Symptoms Reported Hematologic/Lymphatic: No Symptoms Reported Past Aiktfvw-Itmcqg-Kcjish Hx Patient Social History Alcohol Use: Past History Recreational Drug Use: No Smoking Status: Current Everyday Smoker Type Used: Cigarettes Recent Foreign Travel: No Contact w/Someone Who Travel: No Recent Infectious Disease Expo: No Recent Hopitalizations: No Immunizations Up To Date Tetanus Booster (TDap): More than 5yrs PED Vaccines UTD: No Date of Pneumonia Vaccine: Mar 27, 2016 Date of Influenza Vaccine: Mar 27, 2016 Seasonal Allergies Seasonal Allergies: Yes Surgeries HX Surgeries: Yes (neck fusion, bladder tie up, ovarian cystectomy, cystocele/ rectocele ) Surgeries: Adenoidectomy, Appendectomy, Bladder Surgery, Eye Surgery, Gallbladder, Hysterectomy, Oophorectomy, Tonsillectomy Respiratory Hx Respiratory Disorders: No Cardiovascular Hx Cardiac Disorders: No Cardiac Disorders: Hypertension Neurological Hx Neurological Disorders: Yes Neurological Disorders: Headaches /Migraines, Vertigo Reproductive System Hx Reproductive Disorders: No Sexually Transmitted Disease: No HIV/AIDS: No Female Reproductive Disorders: Ovarian 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 Genitourinary Hx Genitourinary Disorders: No Genitourinary Disorders: Bladder Infection, UTI-Chronic Gastrointestinal Hx Gastrointestinal Disorders: Yes Gastrointestinal Disorders: Gastroesophageal Reflux, Diverticulosis, Polyps, Irritable Bowel Musculoskeletal Hx Musculoskeletal Disorders: Yes (STENOSIS) Musculoskeletal Disorders: Arthritis, Fibromyalgia Endocrine Hx Endocrine Disorders: No HEENT HX ENT Disorders: Yes (cataracts removed, glasses, full set of dentures) HEENT Disorders: Cataract Loss of Vision: Bilateral Hearing Impairment: Denies Cancer Hx Cancer: No Cancer: Brain Psychosocial Hx Psychiatric Problems: Yes Behavioral Health Disorders: Anxiety, Bipolar, Depression Integumentary HX Skin/Integumentary Disorder: No Blood Transfusions Hx Blood Disorders: No Adverse Reaction to a Blood Tr: No (N/A) Reviewed Nursing Assessment Reviewed/Agree w Nursing PMH: Yes Family Medical History Significant Family History: No Pertinent Family Hx Family Medial History: Alcoholism 19 FATHER Alzheimer's disease 19 MOTHER Arthritis 19 FATHER 19 MOTHER Cardiovascular disease 19 FATHER (massive heart attack) 19 MOTHER (Mitrial valve prolapse, Stroke Multi.) Cataracts G8 SISTER Completed stroke 19 MOTHER Deafness or hearing loss G8 SISTER Dementia 19 MOTHER Diabetes mellitus 19 MOTHER Fibrocystic disease of breast G8 SISTER Hypercholesterolemia 19 FATHER 19 MOTHER G8 BROTHER G8 SISTER G8 SISTER Osteoporosis G8 SISTER Seizure disorder 19 FATHER Severe allergy G8 BROTHER G8 SISTER Thyroid disease 19 MOTHER G8 BROTHER G8 SISTER G8 SISTER No Family History of: AIDS Abdominal aortic aneurysm Vitor's disease Aphasia Asthma Cancer of mouth Colon cancer Congenital disease Coronary thrombosis Cystic fibrosis Drug abuse Dysphasia Glaucoma Headache disorder Hypertension Infertility Kidney disease Not obtainable due to adoption Parkinson's disease Prostate cancer Psychosocial problem Respiratory disorder Tuberculosis Physical Exam Vital Signs VS - Last 72 Hours, by Label 12/01/16 09:00 Temp 97.7 Pulse 101 Resp 18 B/P (MAP) 125/79 Pulse Ox 98 O2 Delivery Room Air Capillary Refill : Less Than 3 Seconds General Appearance: WD/WN, mild distress HEENT: normal ENT inspection Neck: normal inspection Respiratory: lungs clear Cardiovascular: regular rate, rhythm Gastrointestinal: normal bowel sounds, tenderness (there is moderate suprapubic tenderness.) Genital/Rectal: other (there is a Lind catheter in place.) Extremities: normal inspection Back: no CVA tenderness, no vertebral tenderness 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, no motor/sensory deficits, alert, normal mood/affect Skin: normal color, warm/dry Focused Exam Lactic Acid Level Laboratory Tests Test 12/01/16 09:30 Lactic Acid Level 1.41 MMOL/L (0.50-2.00) Progress/Results/Core Measures Results/Orders Lab Results Laboratory Tests Test 12/01/16 09:30 12/01/16 09:43 Range/Units White Blood Count 7.8 4.3-11.0 10^3/uL Red Blood Count 4.54 4.35-5.85 10^6/uL Hemoglobin 14.3 11.5-16.0 G/DL Hematocrit 42 35-52 % Mean Corpuscular Volume 93 80-99 FL Mean Corpuscular Hemoglobin 32 25-34 PG Mean Corpuscular Hemoglobin Concent 34 32-36 G/DL Red Cell Distribution Width 12.3 10.0-14.5 % Platelet Count 241 130-400 10^3/uL Mean Platelet Volume 10.2 7.4-10.4 FL Neutrophils (%) (Auto) 67 42-75 % Lymphocytes (%) (Auto) 21 12-44 % Monocytes (%) (Auto) 11 0-12 % Eosinophils (%) (Auto) 1 0-10 % Basophils (%) (Auto) 1 0-10 % Neutrophils # (Auto) 5.2 1.8-7.8 X 10^3 Lymphocytes # (Auto) 1.6 1.0-4.0 X 10^3 Monocytes # (Auto) 0.9 0.0-1.0 X 10^3 Eosinophils # (Auto) 0.0 0.0-0.3 10^3/uL Basophils # (Auto) 0.0 0.0-0.1 10^3/uL Sodium Level 131 L 135-145 MMOL/L Potassium Level 4.4 3.6-5.0 MMOL/L Chloride Level 96 L 98-107 MMOL/L Carbon Dioxide Level 25 21-32 MMOL/L Anion Gap 10 5-14 MMOL/L Blood Urea Nitrogen 6 L 7-18 MG/DL Creatinine 0.64 0.60-1.30 MG/DL Estimat Glomerular Filtration Rate > 60 BUN/Creatinine Ratio 9 0-20 Glucose Level 86 70-105 MG/DL Lactic Acid Level 1.41 0.50-2.00 MMOL/L Calcium Level 9.1 8.5-10.1 MG/DL Total Bilirubin 0.3 0.1-1.0 MG/DL Aspartate Amino Transf (AST/SGOT) 15 5-34 U/L Alanine Aminotransferase (ALT/SGPT) 10 0-55 U/L Alkaline Phosphatase 79 40-136 U/L Total Protein 7.3 6.4-8.2 GM/DL Albumin 3.9 3.2-4.5 GM/DL Urine Color YELLOW Urine Clarity CLEAR Urine pH 7 5-9 Urine Specific [place] 1.010 L 1.016-1.022 Urine Protein 2+ H NEGATIVE Urine Glucose (UA) NEGATIVE NEGATIVE Urine Ketones NEGATIVE NEGATIVE Urine Nitrite NEGATIVE NEGATIVE Urine Bilirubin NEGATIVE NEGATIVE Urine Urobilinogen NORMAL NORMAL MG/DL Urine Leukocyte Esterase 3+ H NEGATIVE Urine RBC (Auto) 5+ H NEGATIVE Urine RBC 50-100 H /HPF Urine WBC 50-100 H /HPF Urine Squamous Epithelial Cells NONE /HPF Urine Crystals NONE /LPF Urine Bacteria TRACE /HPF Urine Casts NONE /LPF Urine Mucus NEGATIVE /LPF Urine Culture Indicated YES My Orders Orders - RANI DIEGO MD Ua Culture If Indicated (12/01/16 09:21) Cbc With Automated Diff (12/01/16 09:21) Comprehensive Metabolic Panel (12/01/16 09:21) Lactic Acid Analyzer (12/01/16 09:21) Blood Culture (12/01/16 09:21) Urine Culture (12/01/16 09:43) Ciprofloxacin Iv 400mg/200ml (Cipro Iv S (12/01/16 10:45) Vital Signs/I&O Vital Sign - Last 12Hours 12/01/16 09:00 Temp 97.7 Pulse 101 Resp 18 B/P (MAP) 125/79 Pulse Ox 98 O2 Delivery Room Air Blood Pressure Mean: 94 Progress Note : Time: 11:52 Progress Note The patient's urinalysis demonstrated findings consistent with UTI. Patient received 400 mg of Cipro IV. Telephone consultation was undertaken with Dr. Elaine's partner Dr. Guajardo. He agreed to this treatment plan. The patient is scheduled to follow-up with Dr. Alexandra. Patient was invited to return to emergency department if any further problems or questions. Departure Impression Impression: Primary Impression: Urinary tract infection Disposition: 01 HOME, SELF-CARE Condition: Improved Departure-Patient Inst. Decision time for Depature: 11:55 Referrals: [facility] (PCP/Family) Primary Care Physician COLIN ALEXANDRA MD Patient Instructions: Urinary Tract Infection, Adult (DC) Add. Discharge Instructions: Cipro as prescribed. Close follow-up with Dr. Alexandra as scheduled. Return if any problems or questions. All discharge instructions reviewed with patient and /or family. Voiced understanding. RANI DIEGO MD Dec 01, 2016 11:07
[2016-12-01 13:05] VITALS: BP 108/88
== END 2016-12-01 13:06 | disposition home or self-care (01) ==
LOC: EDUNIT# 08:42 → ER 08:45
DX: N39.0 Urinary tract infection, site not specified (principal); I10 Essential (primary) hypertension; F17.210 Nicotine dependence, cigarettes, uncomplicated; Z90.710 Acquired absence of both cervix and uterus; Z90.49 Acquired absence of other specified parts of digestive tract; Z85.43 Personal history of malignant neoplasm of ovary; Z87.19 Personal history of other diseases of the digestive system
CPT/HCPCS: 36415; 80053; 81000; 83605; 85025; 87040; 87077; 87088; 87186; 99284

== ENCOUNTER → 2017-02-20 | Outpatient (CLI) | payer MEDICARE, MEDICAID ==
--- NOTE | 2017-02-22 10:16 | Diagnostic Imaging Report ---
INDICATION: Digital mammogram bilateral screening. COMPARISON: This study was compared to the prior exams of 01/20/2016, 12/31/2014, and 10/06/2013. PERSONAL HISTORY: At this time, there are no current complaints. FINDINGS: The fibroglandular tissue in both breasts is heterogeneously dense. In the midportion of the breast on the craniocaudad view approximately 6 cm from the nipple, there is a 4 mm nodular density. There seems to be a corresponding nodular density in the midportion of the breast on the MLO view at the same depth. The tomographic views suggest that this finding has a generally benign appearance and I do feel that this has been stable since 2013. The overall appearance of the breasts has not changed significantly otherwise. There is no primary or secondary sign of malignancy noted. IMPRESSION: There is no evidence for malignancy. ACR BI-RADS Category 1: Negative. Result letter will be mailed to the patient. Note: At least 10% of breast cancer is not imaged by mammography. Dictated by: Dictated on workstation # [id number]
== END ==
LOC: RAD 12:32
PROVIDERS: ATTEND Nurse Practitioner Community Health
DX: Z12.31 Encounter for screening mammogram for malignant neoplasm of breast (principal)
CPT/HCPCS: 77067

== ENCOUNTER 2017-08-26 07:14 | Emergency (ER) | payer MEDICARE, MEDICAID ==
[~2017-08-26] VITALS: Ht 162.6 cm; Wt 71.7 kg
[~2017-08-26 07:14] MED LIST changes: -HYDR-3812 PO
[2017-08-26 08:07] LABS: BILIRUBIN,URINE 3+ (NEGATIVE); CLARITY,URINE BLOODY; COLOR,URINE RED; GLUCOSE, URINE (UA) NEGATIVE (NEGATIVE); KETONES,URINE 1+ (NEGATIVE); LEUKOCYTE ESTERASE ,URINE 2+ (NEGATIVE); NITRITE,URINE POSITIVE (NEGATIVE); PH,URINE 8 (5-9); PROTEIN,URINE 3+ (NEGATIVE); UROBILINOGEN,URINE 8 MG/DL (NORMAL)
[2017-08-26 08:19] LABS: RBC,URINE TNTC /HPF
[2017-08-26 08:20] LABS: BACTERIA,URINE NEGATIVE /HPF
[2017-08-26 08:22] LABS: BASOPHILS % (AUTO) 0 % (0-10); EOSINOPHILS # (AUTO) 0.1 10^3/uL (0.0-0.3); EOSINOPHILS % (AUTO) 1 % (0-10); HEMATOCRIT 42 % (35-52); HEMOGLOBIN 14.1 G/DL (11.5-16.0); LYMPHOCYTES # (AUTO) 3.4 X 10^3 (1.0-4.0); LYMPHOCYTES % (AUTO) 24 % (12-44); MEAN CORPUSCULAR HEMOGLOBIN 32 PG (25-34); MEAN CORPUSCULAR HGB CONC 33 G/DL (32-36); MEAN CORPUSCULAR VOLUME 95 FL (80-99); MEAN PLATELET VOLUME 10.4 FL (7.4-10.4); MONOCYTES # (AUTO) 1.6 X 10^3 (0.0-1.0); MONOCYTES % (AUTO) 11 % (0-12); NEUTROPHILS # (AUTO) 9.1 X 10^3 (1.8-7.8); NEUTROPHILS % (AUTO) 64 % (42-75); PLATELET COUNT 270 10^3/uL (130-400); RED BLOOD COUNT 4.45 10^6/uL (4.35-5.85); RED CELL DISTRIBUTION WIDTH 12.8 % (10.0-14.5); WHITE BLOOD COUNT 14.2 10^3/uL (4.3-11.0)
[2017-08-26 08:25] LABS: ALANINE AMINOTRANSFERASE 15 U/L (0-55); ALBUMIN 3.9 GM/DL (3.2-4.5); ALKALINE PHOSPHATASE 89 U/L (40-136); BILIRUBIN,TOTAL 0.4 MG/DL (0.1-1.0); BUN/CREATININE RATIO 13; CALCIUM 9.2 MG/DL (8.5-10.1); CARBON DIOXIDE 31 MMOL/L (21-32); CHLORIDE 99 MMOL/L (98-107); CREATININE SERUM 0.72 MG/DL (0.60-1.30); GFR ESTIMATED > 60; GLUCOSE 84 MG/DL (70-105); POTASSIUM 4.2 MMOL/L (3.6-5.0); SODIUM 137 MMOL/L (135-145); TOTAL PROTEIN 6.5 GM/DL (6.4-8.2)
--- NOTE | 2017-08-26 08:55 | ED GU-Female ---
General Chief Complaint: -Female Stated Complaint: BLOOD IN URINE Nursing Triage Note: PT AMBULATES TO ROOM 9 CO OF VINAY BLOOD IN URINE, STARTED LAST PM. STATES ONLY HAS PAIN IN LOWER ABD. HAS CHRONIC UTI AND DENIES KIDNEY STONES Nursing Sepsis Screen: No Definite Risk Source: patient Exam Limitations: no limitations History of Present Illness Date Seen by Provider: Aug 26, 2017 Time Seen by Provider: 08:51 Initial Comments The patient is a 61-year-old white female who presents this morning with complaints of blood in her urine. She reports that she has had chronic recurrent urinary tract infections and in fact is taking Macrodantin as a prophylaxis. She has seen Dr. Tom and had preliminary workup. He advised her that if she ever got to having significant blood or clots in her urine and it was out of his office hours that she should come to the emergency room for further evaluation. She reports that she has noted small clots today. She has not run a fever. Symptoms began last night and she reports she took some Pyridium which helped the pain Timing/Duration: this morning Severity/Quality: moderate Allergies and Home Medications Allergies Coded Allergies: iodine (Unverified Allergy, Severe, HIVES, 11/03/16) morphine (Unverified Allergy, Severe, HIVES, 11/03/16) Home Medications Beclomethasone Dipropionate 8.7 Gm Hfa.aer.ad, 8.7 GM NS DAILY, (Reported) Cholecalciferol (Vitamin D3) 2,000 Unit Tablet, 2,000 UNIT PO DAILY, (Reported) Cyanocobalamin (Vitamin B-12) 5,000 Mcg Tab.rapdis, 5,000 MCG PO DAILY, ( Reported) Cyclobenzaprine HCl 10 Mg Tablet, 10 MG PO BID PRN for SPASMS, (Reported) Divalproex Sodium 500 Mg Tab.er.24h, 1,000 MG PO HS, (Reported) Estradiol 2 Mg Tablet, 2 MG PO DAILY, (Reported) Estradiol 10 Mcg Tablet, 10 MCG VG TWICE A WEEK, (Reported) Hydroxyzine HCl 10 Mg Tablet, 10 MG PO PRN PRN for ANXIETY, (Reported) Lactobacillus Combo No.10 1 Each Capsule, 1 EACH PO DAILY, (Reported) Levomilnacipran Hydrochloride 120 Mg Cap.sa.24h, 120 MG PO DAILY, (Reported) Loratadine 10 Mg Tablet, 10 MG PO DAILY, (Reported) Magnesium Oxide 500 Mg Capsule, 500 MG PO DAILY, (Reported) Melatonin 5 Mg Tablet, 5 MG PO HS, (Reported) Pantoprazole Sodium 20 Mg Tablet.dr, 20 MG PO DAILY, (Reported) Selenomethionine 200 Mcg Tablet, 200 MCG PO DAILY, (Reported) Patient Home Medication List Home Medication List Reviewed: Yes Constitutional: see HPI EENTM: no symptoms reported Respiratory: no symptoms reported Cardiovascular: no symptoms reported Gastrointestinal: no symptoms reported Genitourinary: hematuria (Vinay) Musculoskeletal: no symptoms reported Skin: no symptoms reported Psychiatric/Neurological: No Symptoms Reported Endocrine: No Symptoms Reported Hematologic/Lymphatic: No Symptoms Reported Past Syyxhgn-Fefrnt-Urqtia Hx Patient Social History Alcohol Use: Denies Use Recreational Drug Use: No Smoking Status: Former Smoker Type Used: Cigarettes Recent Foreign Travel: No Contact w/Someone Who Travel: No Recent Infectious Disease Expo: No Recent Hopitalizations: No Physical Abuse: No Sexual Abuse: No Immunizations Up To Date Tetanus Booster (TDap): More than 5yrs PED Vaccines UTD: No Date of Pneumonia Vaccine: Mar 27, 2016 Date of Influenza Vaccine: Mar 27, 2016 Seasonal Allergies Seasonal Allergies: Yes Surgeries History of Surgeries: Yes (neck fusion, bladder tie up, ovarian cystectomy, cystocele/rectocele ) Surgeries: Adenoidectomy, Appendectomy, Bladder Surgery, Eye Surgery, Gallbladder, Hysterectomy, Oophorectomy, Tonsillectomy Respiratory History of Respiratory Disorde: No Cardiovascular History of Cardiac Disorders: No Cardiac Disorders: Hypertension Neurological History of Neurological Disord: Yes Neurological Disorders: Headaches /Migraines, Vertigo Reproductive System Hx Reproductive Disorders: No Sexually Transmitted Disease: No HIV/AIDS: No Female Reproductive Disorders: Ovarian 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 Genitourinary History of Genitourinary Disor: Yes (BLADDER SURGERY) Genitourinary Disorders: Bladder Infection, UTI-Chronic Gastrointestinal History of Gastrointestinal Di: Yes Gastrointestinal Disorders: Gastroesophageal Reflux, Diverticulosis, Polyps, Irritable Bowel Musculoskeletal History of Musculoskeletal Dis: Yes (STENOSIS) Musculoskeletal Disorders: Arthritis, Fibromyalgia Endocrine History of Endocrine Disorders: No HEENT HEENT Disorders: Cataract Loss of Vision: Bilateral Hearing Impairment: Denies Cancer History of Cancer: No Cancer: Brain Psychosocial History of Psychiatric Problem: Yes Behavioral Health Disorders: Anxiety, Bipolar, Depression Suicide Risk Score: 0 Integumentary History of Skin or Integumenta: No Blood Transfusions History of Blood Disorders: No Adverse Reaction to a Blood Tr: No (N/A) Family Medical History Significant Family History: No Pertinent Family Hx Family Medial History: Alcoholism 19 FATHER Alzheimer's disease 19 MOTHER Arthritis 19 FATHER 19 MOTHER Cardiovascular disease 19 FATHER (massive heart attack) 19 MOTHER (Mitrial valve prolapse, Stroke Multi.) Cataracts G8 SISTER Completed stroke 19 MOTHER Deafness or hearing loss G8 SISTER Dementia 19 MOTHER Diabetes mellitus 19 MOTHER Fibrocystic disease of breast G8 SISTER Hypercholesterolemia 19 FATHER 19 MOTHER G8 BROTHER G8 SISTER G8 SISTER Osteoporosis G8 SISTER Seizure disorder 19 FATHER Severe allergy G8 BROTHER G8 SISTER Thyroid disease 19 MOTHER G8 BROTHER G8 SISTER G8 SISTER No Family History of: AIDS Abdominal aortic aneurysm [place]'s disease Aphasia Asthma Cancer of mouth Colon cancer Congenital disease Coronary thrombosis Cystic fibrosis Drug abuse Dysphasia Glaucoma Headache disorder Hypertension Infertility Kidney disease Not obtainable due to adoption Parkinson's disease Prostate cancer Psychosocial problem Respiratory disorder Tuberculosis Physical Exam Vital Signs Vital Signs - First Documented 08/26/17 07:30 Temp 98.4 Pulse 98 Resp 18 B/P (MAP) 149/89 (109) Pulse Ox 98 Capillary Refill : Less Than 3 Seconds General Appearance: WD/WN, no apparent distress HEENT: normal ENT inspection Neck: full range of motion Cardiovascular: normal peripheral pulses, regular rate, rhythm, no edema, no gallop, no JVD, no murmur Respiratory: chest non-tender, lungs clear, normal breath sounds, no respiratory distress, no accessory muscle use, respiratory distress Gastrointestinal: normal bowel sounds, non tender, soft, no organomegaly, no pulsatile mass, abnormal bowel sounds Neurologic/Psychiatric: service attendant cafeteria II-XII nml as tested, no motor/sensory deficits, alert, normal mood/affect, oriented x 3 Skin: normal color, warm/dry, cyanosis, cool, diaphoresis, pallor Lymphatic: no adenopathy Progress/Results/Core Measures Suspected Sepsis Recent Fever Within 48 Hours: No Infection Criteria Present: None New/Unexplained Altered Menta: No Sepsis Screen: No Definite Risk Sepsis Diagnosis: SIRS Temperature:98.4 Pulse: 98 Respiratory Rate: 18 Laboratory Tests 08/26/17 08:01: White Blood Count 14.2H Blood Pressure 149 /89 Mean: 109 Laboratory Tests 08/26/17 08:01: Creatinine 0.72, Platelet Count 270, Total Bilirubin 0.4 Results/Orders Lab Results Laboratory Tests Test 08/26/17 06:40 08/26/17 08:01 Range/Units Urine Color RED H Urine Clarity BLOODY H Urine pH 8 5-9 Urine Specific [place] 1.015 L 1.016-1.022 Urine Protein 3+ H NEGATIVE Urine Glucose (UA) NEGATIVE NEGATIVE Urine Ketones 1+ H NEGATIVE Urine Nitrite POSITIVE H NEGATIVE Urine Bilirubin 3+ H NEGATIVE Urine Urobilinogen 8 H NORMAL MG/DL Urine Leukocyte Esterase 2+ H NEGATIVE Urine RBC (Auto) 5+ H NEGATIVE Urine RBC TNTC H /HPF Urine WBC NONE /HPF Urine Crystals NONE /LPF Urine Bacteria NEGATIVE /HPF Urine Casts NONE /LPF Urine Mucus NEGATIVE /LPF Urine Culture Indicated NO White Blood Count 14.2 H 4.3-11.0 10^3/uL Red Blood Count 4.45 4.35-5.85 10^6/uL Hemoglobin 14.1 11.5-16.0 G/DL Hematocrit 42 35-52 % Mean Corpuscular Volume 95 80-99 FL Mean Corpuscular Hemoglobin 32 25-34 PG Mean Corpuscular Hemoglobin Concent 33 32-36 G/DL Red Cell Distribution Width 12.8 10.0-14.5 % Platelet Count 270 130-400 10^3/uL Mean Platelet Volume 10.4 7.4-10.4 FL Neutrophils (%) (Auto) 64 42-75 % Lymphocytes (%) (Auto) 24 12-44 % Monocytes (%) (Auto) 11 0-12 % Eosinophils (%) (Auto) 1 0-10 % Basophils (%) (Auto) 0 0-10 % Neutrophils # (Auto) 9.1 H 1.8-7.8 X 10^3 Lymphocytes # (Auto) 3.4 1.0-4.0 X 10^3 Monocytes # (Auto) 1.6 H 0.0-1.0 X 10^3 Eosinophils # (Auto) 0.1 0.0-0.3 10^3/uL Basophils # (Auto) 0.0 0.0-0.1 10^3/uL Sodium Level 137 135-145 MMOL/L Potassium Level 4.2 3.6-5.0 MMOL/L Chloride Level 99 98-107 MMOL/L Carbon Dioxide Level 31 21-32 MMOL/L Anion Gap 7 5-14 MMOL/L Blood Urea Nitrogen 9 7-18 MG/DL Creatinine 0.72 0.60-1.30 MG/DL Estimat Glomerular Filtration Rate > 60 BUN/Creatinine Ratio 13 Glucose Level 84 70-105 MG/DL Calcium Level 9.2 8.5-10.1 MG/DL Total Bilirubin 0.4 0.1-1.0 MG/DL Aspartate Amino Transf (AST/SGOT) 17 5-34 U/L Alanine Aminotransferase (ALT/SGPT) 15 0-55 U/L Alkaline Phosphatase 89 40-136 U/L Total Protein 6.5 6.4-8.2 GM/DL Albumin 3.9 3.2-4.5 GM/DL My Orders Orders - YOSI MG MD Cbc With Automated Diff (08/26/17 07:42) Comprehensive Metabolic Panel (08/26/17 07:42) Ua Culture If Indicated (08/26/17 07:42) Ct Abdomen/Pelvis Wo (08/26/17 09:17) Lidocaine 2% (Urojet) (Xylocaine Urojet) (08/26/17 09:34) Ceftriaxone Injection (Rocephin Injectio (08/26/17 10:15) Lidocaine 1% Injection (Xylocaine 1% Inj (08/26/17 10:15) Medications Given in ED Current Medications Medications Dose Ordered Sig/Jeff Route Start Time Stop Time Status Last Admin Dose Admin Lidocaine HCl 10 ml STK-MED ONCE .ROUTE 08/26/17 09:34 08/26/17 09:38 DC 08/26/17 09:50 10 ML Vital Signs/I&O Vital Sign - Last 12Hours 08/26/17 07:30 Temp 98.4 Pulse 98 Resp 18 B/P (MAP) 149/89 (109) Pulse Ox 98 Capillary Refill : Less Than 3 Seconds Blood Pressure Mean: 109 Departure Communication (Admissions) Progress Notes [address] Tom. She will have a CT scan of the abdomen and pelvis as it has been 15 months since her last previous. Dr. Helms confirmed that she had previously had an office cystoscopy. Options were given to me for treatment by Dr. Tom 1014 the urine has cleared nicely with CBI. According to the options given to us by Dr. Tom she will be given a gram of Rocephin IM and see him in the office at 1500 tomorrow. Impression Impression: Primary Impression: Urinary tract infection Additional Impression: Hematuria Disposition: 01 HOME, SELF-CARE Condition: Improved Departure-Patient Inst. Decision time for Depature: 10:13 Referrals: [facility] (PCP/Family) Primary Care Physician Patient Instructions: Urinary Tract Infection, Adult (DC) Add. Discharge Instructions: All discharge instructions reviewed with patient and/or family. Voiced understanding. Observe urine for recurrence of hematuria. See Dr. Tom in the office tomorrow at 1500 hours. If severe hematuria and clots recur return to the emergency room for admission. YOSI MG MD Aug 26, 2017 08:55
[2017-08-26] MEDS ORDERED: LIDOCAINE UROJET 2% GEL 10 ML PKG ONE (09:34)
--- NOTE | 2017-08-26 09:46 | Diagnostic Imaging Report ---
PROCEDURE: CT abdomen and pelvis without contrast. TECHNIQUE: Multiple contiguous axial images were obtained through the abdomen and pelvis without the use of intravenous contrast. INDICATION: Hematuria, cramping COMPARISON: 05/18/2016 FINDINGS: The visualized lung bases are clear. Cholecystectomy. The unenhanced liver, spleen, adrenal glands, and pancreas are unremarkable. The kidneys and bilateral ureters are unremarkable. Mild vascular calcifications without aneurysmal dilatation of abdominal aorta. Mild mural thickening of the urinary bladder, though the urinary bladder is not well distended. The uterus is not visualized, likely surgically absent. No abnormal adnexal mass lesion. Moderate amount of stool throughout the colon. No evidence of acute appendicitis. No bowel obstruction or pneumatosis. No significant adenopathy, free air, or free fluid within the abdomen or pelvis. Stable sclerosis within the mid sacrum. Stable Schmorl's node and anterior wedging within T12. Scattered osseous degenerative changes without acute osseous abnormality. IMPRESSION: Mild mural thickening of the urinary bladder. This is favored to simply relate to poor distention, though underlying cystitis from an infectious or inflammatory process not excluded. Recommend correlation with urinary analysis. Additional postsurgical and chronic findings as described above. Dictated by: Dictated on workstation # [id number]
[2017-08-26] MEDS ORDERED: cefTRIAXone 1 GM (ROCEPHIN) VIAL IM ONE (10:15)
[2017-08-26] MEDS ORDERED: LIDOCAINE 1% INJ 20 ML (XYLOCAINE) VIAL INJ ONE (10:15)
[2017-08-26] MEDS ORDERED: LIDOCAINE 1% INJ 50 ML (XYLOCAINE) VIAL ONE (10:15)
[2017-08-26 10:34] VITALS: BP 149/89
[2017-08-26] MEDS ORDERED: PHEN-640 PO ×2 (11:01→11:03)
--- NOTE | 2017-08-26 16:30 | CONSULTATION REPORT ---
DATE OF SERVICE: 08/26/2017 ATTENDING PHYSICIAN: Dr. Bentley -- Elif Gallardo. SUMMARY: After reviewing the patient's record in the hospital and in the office, this is a 61-year-old white lady known to me because of history of UTIs and overactive bladder who is doing very well on Macrodantin 100 mg every other day and Myrbetriq 50 mg daily. She presented to the emergency room with gross hematuria and clot. She had a CAT scan that was essentially negative. She was at my recommendation on the phone with Dr. Bentley started on some CBI, she clear perfectly. Her urine is monica of the CBI. IMPRESSION: Gross hematuria with a history of urinary tract infections and overactive bladder. PLAN: Continue present management. She received Rocephin 1 gram IV, which will cover her for 24 hours until I see her back tomorrow at the office at 3:00. We will plan a cystoscopy. This was fully explained to the patient. Job ID: [id number] DocumentID: [id number] Dictated Date: 08/26/2017 10:33:31 Clinical Statistical Programmer Date: 08/26/2017 16:29:05 Dictated By: COLIN ALEXANDRA MD
--- OUTSIDE RECORDS SUMMARY | 2017-08-27 08:34 | XMS REPORT | Encounter Summary ---
Author Author [facility] Organization [facility] Address Unknown Phone Unavailable Care Team Providers Care Instructor Bus [employer] Name Role Phone Christina Black RN Unavailable Unavailable Tia Levi RN Unavailable Unavailable Ismael Mena MD Unavailable George Gleason MD Unavailable Lobito Blum MD Unavailable Reyes Tee MD Unavailable Jonas Torres DO Unavailable Emergency, Nurse RN Unavailable Unavailable Emily Diez RN Unavailable Unavailable Yoselin Bradley RN Unavailable Unavailable Lauri Baldwin MD Unavailable Unavailable Gabriel Wilson MD Unavailable Elif Gallardo APRN PCP Mariposa Dougherty MD Unavailable Victoriano Loja MD Unavailable Reason for Visit * Reason Comments Follow-up Phone Call Encounter Details Date Type Department Care Team Description 08/03/2017 Telephone Ger Maher MD Follow-up Phone Call [facility] [address] [facility] [address] [place] [address] [place] [address] Social History Tobacco Use Types Packs/Day Years Used Date Current Every Day Smoker Cigarettes 1 43 Smokeless Tobacco: Never Used Alcohol Use Drinks/Week oz/Week Comments No Sex Assigned at Date Recorded Not on file as of this encounter Functional Status Functional Status Response Date of Assessment Does the patient have a hearing impairment: No 05/02/2017 Does the patient have a visual impairment: Yes 05/02/2017 Does the patient have impaired ambulation: Yes 05/02/2017 Does the patient have an activity of daily living No 05/02/2017 (ADL) impairment: Does the patient have an instrumental activity of Yes 05/02/2017 daily living (IADL) impairment: Cognitive Status Response Date of Assessment Does the patient have a cognitive impairment: No 05/02/2017 as of this encounter Miscellaneous Notes * Telephone Encounter - Nikki Monsalve RN - 08/03/2017 10:06 AM 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 No answer on pt cell phone, nurse left v/m to return call to [phone]. in this encounter Plan of Treatment Not on fileas of this encounter Visit Diagnoses Not on filein this encounter
--- OUTSIDE RECORDS SUMMARY | 2017-08-27 08:34 | XMS REPORT | Clinical Summary ---
Author Author [facility] Organization [facility] Address Unknown Phone Unavailable Care Team Providers Care Coordinator Of Rehabilitation Services Name Role Phone Christina Black RN Unavailable [...] Dougherty MD Unavailable Victoriano Loja MD Unavailable Source Comments Some departments are not documenting in the electronic medical record. If you do not see the information that you expected, contact Release of Information in the Health Information Management department at [phone] for further assistance in locating additional records.[facility] Allergies Active Allergy Reactions Severity Noted Date Comments Iodine HIVES Medium 06/18/1974 topical Morphine HIVES Medium 06/18/1974 Current Medications Prescription Sig. Disp. Refills Start End Date Status Date levomilnacipran (FETZIMA) Take 120 mg by mouth Active 120 mg Cs24 daily. cholecalciferol (VITAMIN Take 2,000 Units by mouth Active D-3) 1,000 units tablet daily. Pt states taking 2000 units daily magnesium oxide 400 mg Take 1 Cap by mouth 30 Cap 1 10/23/19 Active cap daily. 15 estradiol (ESTRACE) 2 mg Take 2 mg by mouth every Active tablet morning. hydrOXYzine (ATARAX) 10 Take 10 mg by mouth three Active mg tablet times daily as needed for Itching. cyclobenzaprine TAKE ONE TABLET BY MOUTH 60 Tab 6 03/22/20 Active (FLEXERIL) 10 mg tablet TWICE DAILY 15 ibuprofen (MOTRIN) 600 mg Take 600 mg by mouth Active tablet every 6 hours as needed for Pain. estradiol(+) (VAGIFEM) 10 Insert or Apply 10 mcg to Active mcg vaginal tablet vaginal area twice weekly. Insert one tablet vaginally daily for two weeks; then insert one tablet twice weekly. cyanocobalamin (VITAMIN Inject 1 mL to area(s) [...] 2.5-2.5 % topical affected area 17 cream fluticasone (FLOVENT HFA) Inhale 2 puffs by mouth Active 110 mcg/actuation inhaler into the lungs twice daily. mirabegron(+) ER Take 25 mg by mouth Active (MYRBETRIQ ER) 25 mg daily. tablet gabapentin (NEURONTIN) Take 1 capsule by mouth 90 capsule 3 08/15/19 Active 100 mg capsule every 8 hours. 18 GABAPENTIN (NEURONTIN PO) Take 100 mg by mouth. 08/15/19 Discontin 18 ued Active Problems Problem Noted Date Neck pain 10/04/2016 History of fusion of cervical spine 10/04/2016 Myofascial pain 10/04/2016 Paresthesia 10/22/2014 Status migrainosus 10/22/2014 Cervical stenosis of spine 10/22/2014 Headache 09/24/2014 Positional vertigo 09/24/2014 Lytic bone lesions on xray 08/31/2014 Encounters Date Type Specialty Care Team Description 08/15/2017 Procedure visit Rehabilitation Medicine Ger Cain MD Myalgia (Primary Dx); Radicular leg pain 08/03/2017 Telephone Rehabilitation Medicine Ger Cain MD Follow -up Phone Call 07/25/2017 Documentation Rehabilitation Medicine Ger Cain MD 07/24/2017 Telephone Rehabilitation Medicine Ger Cain MD Medication Refill from Last 3 Months Family History Medical History Relation Name Comments Thyroid Disease Brother Migraines Daughter Cancer Father Hypertension Father Seizures Father Stroke Maternal Grandmother Dementia Mother Hypertension Mother Neuropathy Mother Stroke Mother Thyroid Disease Mother Stroke Paternal Grandmother Cancer Sister Thyroid Disease Sister Cancer Son Relation Name Status Comments Brother Daughter Alive Father Maternal Grandmother Mother Paternal Grandmother Sister Alive Son Alive Social History Tobacco Use Types Packs/Day Years Used Date Current Every Day Smoker Cigarettes 1 43 Smokeless Tobacco: Never Used Tobacco Cessation: Counseling Given: Yes Alcohol Use Drinks/Week oz/Week Comments No Sex Assigned at Date Recorded Not on file Last Filed Vital Signs Vital Sign Reading Time Taken Blood Pressure 129/74 08/15/2017 3:12 PM JAWBONE PULLER Pulse 101 08/15/2017 3:12 PM JAWBONE PULLER Temperature 36.8 C (98.3 F) 11/21/2016 11:31 AM CDT Respiratory Rate 20 08/15/2017 3:12 PM JAWBONE PULLER Oxygen Saturation 98% 08/15/2017 3:12 PM JAWBONE PULLER Inhaled Oxygen - - Concentration Weight 63.5 kg (140 lb) 08/15/2017 3:12 PM JAWBONE PULLER Height 162.6 cm (5' 4") 08/15/2017 3:12 PM JAWBONE PULLER Body Mass Index 24.03 08/15/2017 3:12 PM JAWBONE PULLER Plan of Treatment Health Maintenance Due Date Last Done Comments HEPATITIS C SCREENING 1956 PHYSICAL (COMPREHENSIVE) 12/28/1963 EXAM PERTUSSIS VACCINE 12/28/1967 HIV SCREENING 12/28/1971 TETANUS VACCINE 1973 CERVICAL CANCER SCREENING 1986 BREAST CANCER SCREENING 1996 COLORECTAL CANCER 2006 SCREENING SHINGLES VACCINE 2016 INFLUENZA VACCINE 03/18/2018 Procedures Procedure Name Priority Date/Time Associated Diagnosis Comments CA 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 from Last 3 Months Results * [facility] SPINE TRIGGER POINT INJECTION (08/15/2017 3:00 PM) Specimen Performing Laboratory OTHER OUTSIDE LAB Narrative Ger Cain MD 08/15/20175:40 PM Trigger Point Injection Locations: L upper trapezius, R upper trapezius, L cervical and R cervical Consent: Consent obtained: verbal and written Consent given by: patient Discussed with patient the purpose of the treatment/procedure, other ways of treating my condition, including no treatment/ procedure and the risks and benefits of the alternatives. Patient has decided to proceed with treatment/procedure. [place] Protocol: Relevant documents: relevant documents present and verified Test results: test results available and properly labeled Imaging studies: imaging studies available Required items: required blood products, implants, devices, and special equipment available Site marked: the operative site was marked Patient identity confirmed: Patient identify confirmed verbally with patient. Time out: Immediately prior to procedure a "time out" was called to verify the correct patient, procedure, equipment, fire support specialist and site/side marked as required Procedures Details: Indications: myalgiaPrep: 2% chlorhexidine Needle size: 30 G Number of muscles: 3 or more Medications administered: 9 mL bupivacaine PF 0.25 %; 40 mg triamcinolone acetonide 40 mg/mL Patient tolerance: Patient tolerated the procedure well with no immediate complications. Pressure was applied, and hemostasis was accomplished. from Last 3 Months
--- OUTSIDE RECORDS SUMMARY | 2017-08-27 08:34 | XMS REPORT | Encounter Summary ---
Author Author [facility] Organization [facility] Address Unknown Phone Unavailable Care Team Providers Care Shipping Hand Name Role Phone Christina Black RN Unavailable [...] Unavailable Reason for Visit * Reason Comments Imm/Inj HERE FOR TPI FOR NECK AND LBP * Pain Authorization (Routine) Status Reason Specialty Diagnoses / Referred By Referred To Procedures Contact Contact No Auth Needed Rehabilitation Diagnoses Ger Cain, Edu Spn Rehab Med Medicine Myalgia Cl [address] [facility] [place], [place] [address] INJECTION [address] Phone: Encounter Details Date Type Department Care Team Description 08/15/2017 Procedure visit Ger Maher MD Myalgia ( Primary Dx); Rehabilitative Medicine [address] Radicular leg pain [address] [place] [address] [place] [address] [phone] Social History Tobacco Use Types Packs/Day Years Used Date Current Every Day Smoker Cigarettes 1 43 Smokeless Tobacco: Never Used Alcohol Use Drinks/Week oz/Week Comments No Sex Assigned at Date Recorded Not on file as of this encounter Last Filed Vital Signs Vital Sign Reading Time Taken Blood Pressure 129/74 08/15/2017 3:12 PM [employer] [employer] Pulse 101 08/15/2017 3:12 PM [employer] [employer] Temperature - - Respiratory Rate 20 08/15/2017 3:12 PM [employer] [employer] Oxygen Saturation 98% 08/15/2017 3:12 PM [employer] [employer] Inhaled Oxygen - - Concentration Weight 63.5 kg (140 lb) 08/15/2017 3:12 PM [employer] [employer] Height 162.6 cm (5' 4") 08/15/2017 3:12 PM [employer] [employer] Body Mass Index 24.03 08/15/2017 3:12 PM [employer] [employer] in this encounter Functional Status Functional Status Response Date of Assessment Does the patient have a hearing impairment: No 08/15/2017 Does the patient have a visual impairment: Yes 08/15/2017 Does the patient have impaired ambulation: Yes 08/15/2017 Does the patient have an activity of daily living No 08/15/2017 (ADL) impairment: Does the patient have an instrumental activity of Yes 08/15/2017 daily living (IADL) impairment: Cognitive Status Response Date of Assessment Does the patient have a cognitive impairment: No 08/15/2017 as of this encounter Progress Notes * Lazaro Fortune MD - 08/15/2017 3:00 PM [employer] [employer] Formatting of this note may be different from the original. [facility] NOTE Subjective SUBJECTIVE: Sydnie Huffman is a 61 yo F with hx of C5-C7 fusion with Dr. Wilson and fibromyalgia presenting for repeat TPI injections and new onset low back pain which has been problematic for her since the beginning of the year. Pt denies any acute onset of trauma. Pain is located in the right low back with radiation down her right leg to her right foot. At other times she feels as though the pain is most bothersome in her tailbone. Pt sought evaluation from her primary care physician who referred to physical therapy which patient just initiated yesterday. Pt has also been initiated on gabapentin and is currently only taking 100 mg qhs. She also is taking flexeril 10 mg BID, voltaren gel and EMLA cream. Pt started physical therapy just yesterday with planned 3 week course of treatment. She was initiated on gabapentin 100 mg qhs approximately 1.5 weeks ago by her PCP Review of Systems Constitutional: Positive for activity change. HENT: Positive for hearing loss, rhinorrhea, sinus pain and tinnitus. Eyes: Positive for photophobia. Endocrine: Positive for cold intolerance and heat intolerance. Musculoskeletal: Positive for arthralgias, back pain, gait problem, myalgias, neck pain and neck stiffness. Allergic/Immunologic: Positive for environmental allergies. Neurological: Positive for dizziness, tremors, weakness, light-headedness and headaches. Current Outpatient Prescriptions on File Prior to Visit Medication Sig Dispense Refill cholecalciferol (VITAMIN D-3) 1,000 units tablet Take 2,000 Units by mouth daily. Pt states taking 2000 units daily cyanocobalamin (VITAMIN B-12, RUBRAMIN) 1,000 mcg/mL injection Inject 1 mL to area(s) as directed every 30 days. Pt states she takes 5000 mcg SubQ daily. cyclobenzaprine (FLEXERIL) 10 mg tablet TAKE ONE TABLET BY MOUTH TWICE DAILY 60 Tab 6 diclofenac(+) (VOLTAREN) 1 % topical gel Apply 2 g topically to affected area four times daily. 1 Tube 5 divalproex (DEPAKOTE ER) 500 mg ER tablet DIVALPROEX SODIUM (DEPAKOTE PO) Take 1,000 mg by mouth at bedtime daily. estradiol (ESTRACE) 2 mg tablet Take 2 mg by mouth every morning. estradiol(+) (VAGIFEM) 10 mcg vaginal tablet Insert or Apply 10 mcg to vaginal area twice weekly. Insert one tablet vaginally daily for two weeks; then insert one tablet twice weekly. fluticasone (FLOVENT HFA) 110 mcg/actuation inhaler Inhale 2 puffs by mouth into the lungs twice daily. hydrOXYzine (ATARAX) 10 mg tablet Take 10 mg by mouth three times daily as needed for Itching. ibuprofen (MOTRIN) 600 mg tablet Take 600 mg by mouth every 6 hours as needed for Pain. Lactobacillus rhamnosus GG (LACTOBACILLUS RHAMNOSUS (GG)) 15 billion cell cpSP Take by mouth daily with breakfast. levomilnacipran (FETZIMA) 120 mg Cs24 Take 120 mg by mouth daily. lidocaine-prilocaine (EMLA) 2.5-2.5 % topical cream apply small amount to affected area 30 g 3 loratadine (CLARITIN) 10 mg tablet magnesium oxide 400 mg cap Take 1 Cap by mouth daily. (Patient taking differently: Take 500 mg by mouth as directed. Takes one every morning. May also take as needed for headache.) 30 Cap 1 MELATONIN PO Take 5 mg by mouth at bedtime daily. mirabegron(+) ER (MYRBETRIQ ER) 25 mg tablet Take 25 mg by mouth daily. pantoprazole DR (PROTONIX) 20 mg tablet QNASL 80 mcg/actuation nasal spray No current facility-administered medications on file prior to visit. Allergies Allergen Reactions Iodine HIVES topical Morphine HIVES Physical Exam Vitals: 08/15/17 1512 Weight: 63.5 kg (140 lb) Height: 162.6 cm (64") Pain Score: Eight (6/10 NECK) Body mass index is 24.03 kg/m. Gen: Alert & Oriented X 3 HEENT: EOMI Neck: Supple, no elevated JVP Heart: Extremities well perfused Lungs: non labored breathing Abdomen: Soft, non-tender, non-distended, +BS Skin: no gross lesions appreciated Ext: purposeful movement of extremities MS: Root Right Left Hip Flexion L2 5 5 Knee Flexion L5/S1 5 5 Knee Extension L3 5 5 Dorsiflexion L4 4 5 Plantarflexion S1 5 5 EHL Extension L5 4 5 Tenderness to palpation through the cervical spinous processes, trapezius, rhomboids bilaterally. Spurlings negative. Tender to palpation of right L5-S1. No pain reproduced with facet loading. No tenderness to palpation along the spinous process, paraspinal musculature, SI joints, gluteal musculature, greater trochanters. Negative slump and straight leg testing to 30-75 degrees. Neuro: DTR's 1+ in bilateral patella and achilles Babinski Plantar Reflex is Downgoing Bilaterally Upper Extremity Tone Normal Lower Extremity Tone Normal Upper Extremity Sensation Intact to light touch bilaterally Lower Extremity Sensation Intact to light touch bilaterally IMPRESSION: 1. Myalgia 2. Radicular leg pain PLAN: Ms. Huffman is a 61-year-old female presents for repeat trigger point injections and with radicular right low back and leg pain. 1) Lifestyle Modifications: Maintain spine in a neutral position. Avoid heavy lifting. 2) Medications: Titration schedule provided for gabapentin. I have discussed associated benefits, adverse effects, and dose limitations. 3) Therapy: Continue PT as currently enrolled in. 4) Imaging: If pain not improved after completion of PT, will consider obtaining MRI L-spine. 5) Interventions: To proceed with trigger point injections at today's visit. Please see procedure notes for details. 6) Follow-up:The patient can follow-up with me in 6-8 weeks. I have discussed with the patient that they can contact our clinic with any questions/concerns Patient examined and treatment plan formulated under the supervision of Dr. Ger Cain MD. Blue Fortune MD Rehab Medicine PGY-3 ATTESTATION I personally performed the martinez portions of the E/M visit, discussed case with resident and concur with resident documentation of history, physical exam, assessment, and treatment plan unless otherwise noted. Ms. Huffman is a 61-year-old female presents for repeat trigger point injections. She has had a good response in the past for greater than 80% relief. She denies any fevers or chills. She has had recent radicular low back pain. She was referred to physical therapy 2 weeks ago. She is working with up-to-date. VAS pain score is rated 8/10. After written verbal consent was obtained she was wrote trigger point injection. She was instructed to continue with physical therapy efforts for her low back. If not better, then I recommend MRI of lumbar spine. Staff name: Ger Cain MD Date: 08/15/17 in this encounter Procedure Notes * Ger Cain MD - 08/15/2017 3:00 PM [facility] [employer] Associated Order(s): [facility] AMB SPINE [place]IGGER POINT INJECTION Post-Procedure Diagnose(s): Myalgia Formatting of this note may be different from the original. Attending Surgeon: Ger Cain MD Anesthesia: Local Pre-Procedure Diagnosis: 1. Myalgia 2. Radicular leg pain Post-Procedure Diagnosis: 1. Myalgia 2. Radicular leg pain Trigger Point Injection Locations: L upper trapezius, R upper trapezius, L cervical and R cervical Consent: Consent obtained: verbal and written Consent given by: patient Discussed with patient the purpose of the treatment/procedure, other ways of treating my condition, including no treatment/ procedure and the risks and benefits of the alternatives. Patient has decided to proceed with treatment/ procedure. [place] Protocol: Relevant documents: relevant documents present and [...] to verify the correct patient, procedure, equipment, life support technician and site/side marked as required Procedures Details: Indications: myalgiaPrep: 2% chlorhexidine Needle size: 30 G Number of muscles: 3 or more Medications administered: 9 mL bupivacaine PF 0.25 %; 40 mg triamcinolone acetonide 40 mg/mL Patient tolerance: Patient tolerated the procedure well with no immediate complications. Pressure was applied, and hemostasis was accomplished. Estimated blood loss: none or minimal Specimens: none Patient tolerated the procedure well with no immediate complications. Pressure was applied, and hemostasis was accomplished. After verbal and written consent were provided, the patient was provided with 10 trigger point injections to the bilateral cervical paraspinals and trapezius. 10 sites were identified and marked at the area of maximal tenderness. The patient's injections were done in the usual sterile fashion with Betadine times 3 used to clean the injection sites prior to injection. A 10 ml solution containing 40 mg triamcinalone and 9 mL of 0.25% bupivacaine was used with each site receiving 1ml of the solution. Patient tolerated the procedure well. There was no blood loss. Area was cleaned and bandaid applied. Patient was advised to avoid applying heat over injection sites and avoid soaking in bath tubs, hot tubs, or swimming pools for 3-4 days. in this encounter Plan of Treatment Not on fileas of this encounter Procedures Procedure Name Priority Date/Time Associated Diagnosis Comments MT INJECTION SINGLE/SAMPLE MAKER HAND Routine 08/15/2017 Myalgia Results for this TRIGGER POINT 3/> MUSCLES 3:00 PM [employer] [employer] procedure are in the results section. in this encounter Results * [facility] AMB SPINE TRIGGER POINT [...] Patient has decided to proceed with treatment/procedure. [place] Protocol: Relevant documents: relevant documents present and [...] to verify the correct patient, procedure, equipment, life support technician and site/side marked as required Procedures Details: Indications: myalgiaPrep: 2% chlorhexidine Needle size: 30 G Number of muscles: 3 or more Medications administered: 9 mL bupivacaine PF 0.25 %; 40 mg triamcinolone acetonide 40 mg/mL Patient tolerance: Patient tolerated the procedure well with no immediate complications. Pressure was applied, and hemostasis was accomplished. in this encounter Visit Diagnoses Diagnosis Myalgia - Primary Mylagia and myositis, unspecified Radicular leg pain Thoracic or lumbosacral neuritis or radiculitis, unspecified Administered Medications Medication Order MAR Action Action Date Dose Rate Site bupivacaine PF (MARCAINE) 0.25 % Given 08/15/2017 9 mL injection 9 mL 17:40 [employer] [employer] 9 mL, Injection, ONCE PRN, 1 dose, Starting Sun08/15/17 at 1740, Until Sun08/15/17 at 1740 triamcinolone acetonide (KENALOG-40) Given 08/15/2017 40 mg injection 40 mg 17:40 [employer] [employer] 40 mg, Injection, ONCE PRN, 1 dose, Starting Sun08/15/17 at 1740, Until Sun08/15/17 at 1740 in this encounter
--- OUTSIDE RECORDS SUMMARY | 2017-08-27 08:34 | XMS REPORT | Continuity of Care Document ---
Author Author [facility] Organization [facility] Address Unknown Phone Unavailable Care Team Providers Care Record Changer Name Role Phone [employer] Unavailable Unavailable Problems Medications Allergies, Adverse Reactions, Alerts Immunizations Results Vital Signs Encounters Location Location Details Encounter Type Encounter Number Reason For Visit Attending Provider ADM Date DC Date Status Source OUTPATIENT [id number] SARAH NG 05/02/[address] [facility] OUTPATIENT [id number] SARAH NG 08/15/[address] [facility] O SARHA NG 09/26/[address] [facility] Procedures Plan of Care Social History Assessment and Plan Family History Advance Directives Functional Status
--- OUTSIDE RECORDS SUMMARY | 2017-08-27 08:35 | XMS REPORT ---
Author Author NAHOMY HANCOCK [facility] Address [address] [place] [address] Care Team Providers Care Qual Field Manager Name Role Phone NAHOMY HANCOCK Unavailable PROBLEMS Type Condition ICD9-CM Code [id number] Code Onset Dates Condition Status SNOMED Code Problem Bipolar 1 disorder, mixed F31.60 Active 46496813 Problem Hearing loss, unspecified laterality H91.90 Active 05131759 Problem Ataxia R27.0 Active 84671132 Problem Hammer toe of right foot M20.41 Active 910037055 Problem Abnormal CT scan, head R93.0 Active 295145950 Problem Hematuria, unspecified type R31.9 Active 17540170 Problem Hormone replacement therapy Z79.890 Active 845162754 Problem Hot flashes due to menopause N95.1 Active 102390597 Problem Allergic rhinitis J30.9 Active 44004689 Problem Generalized anxiety disorder F41.1 Active 05934964 Problem History of colon polyps Z86.010 Active 013945195 Problem Bruising, spontaneous R23.3 Active 082083064 Problem Arthralgia of hip, unspecified laterality M25.559 Active 32120199 Problem Sensorineural hearing loss (SNHL) of both ears H90.3 Active 503525593 Problem Night sweats R61 Active 28463729 Problem Hyperlipidemia, unspecified hyperlipidemia type E78.5 Active 77373872 Problem Grief F43.20 Active 68232686 Problem Major depressive disorder, recurrent episode, moderate F33.1 Active 339787100 Problem Other chronic pain G89.29 Active 46798347 Problem Hypertension I10 Active 95092265 Problem Gastritis without bleeding, unspecified chronicity, unspecified gastritis type K29.70 Active 934819664 ALLERGIES Substance Reaction Event Type Date Status Morphine Sulfate Unknown Drug Allergy Jul, Active Iodine Unknown Drug Allergy Jul, Active Cipro burning stomach Drug Allergy Jul, Active Lyrica 75 Mg Capsule Unknown Non Drug Allergy Jul, Active SOCIAL HISTORY Never Assessed PLAN OF CARE Activity Details Follow Up prn Reason: VITAL SIGNS Height 64 in 2016-07-26 Weight 141 lbs 2016-07-26 Temperature 98.0 degrees Fahrenheit 2016-07-26 Heart Rate 86 bpm 2016-07-26 Respiratory Rate 16 2016-07-26 BMI 24.20 kg/m2 2016-07-26 Blood pressure systolic 120 mmHg 2016-07-26 Blood pressure diastolic 74 mmHg 2016-07-26 MEDICATIONS Medication Instructions Dosage Frequency Start Date End Date Duration Status Vitamin D3 2000 UNIT Orally Once a day as directed 24h Dec, Active HydrOXYzine HCl 10 mg Orally 3 times a day PRN 1 tablet Active Magnesium 500 MG Orally Once a day 1 tablet with a meal 24h Dec, Active Multi Vitamin Daily Orally Once a day 1 tablet 24h Active Probiotic Acidophilus Active Loratadine 10 mg Orally Once a day 1 tablet 24h Jun, October, 30 day(s) Active Depakote ER 500 MG Orally at bedtime 2 tabs Feb, 30 days Active Melatonin 5 MG Orally at bedtime 1 Tablet by Oral route 1 time per day HS Aug, Active Protonix 40 MG Orally Once a day 1 tablet 24h Active Ibuprofen 200 MG Orally every 6 hrs 1 tablet as needed 6h Active D70-Bgrpuc 1 MG Active Qnasl 80 MCG/ACT Nasally Once a day 2 puffs in each nostril 24h Jun, 30 day(s) Active Mucinex 600 MG Orally every 12 hrs 1 tablet as needed 12h Active Flexeril 10 mg by oral route 2 times a day 1 tablet 12h Aug, Active Vagifem 10 MCG Vaginal Two times a Week 1 tablet Active Estradiol 2 MG Orally Once a day 1 tablet 24h Active Fetzima 120 MG Orally Once a day TAKE 1 CAPSULE BY MOUTH DAILY 24h 30 Active RESULTS No Results PROCEDURES Procedure Date Ordered Result Body Site TDAP (BOOSTRIX) Jul 26, 2016 SINGLE IMMUNIZATION ADMIN Jul 26, 2016 IMMUNIZATIONS Vaccine Route Administration Date Status TDAP (BOOSTRIX) IM Intramuscular Jul 26, 2016 Administered MEDICAL (GENERAL) HISTORY Type Description Date Medical History Severe spinal stenosis through cervical spine CT and MRI done 10/2014 at [facility] with Neurosurgery at Medical History Migraine BEAR Evaluated and tx at Medical History Sensorineural hearing loss (SNHL) of both ears Medical History Denies any history of heart heart problem or seizure Medical History Hematuria, unspecified type Surgical History cervical spine fusion C5-C7 01/14/2015 Surgical History hysterectomy Surgical History bladder sling Surgical History tonsillectomy Surgical History cholecystectomy Surgical History appendectomy Surgical History Bladder surgery 05/18/15 Surgical History Arterial bleed repaired 05/19/2015 Hospitalization History surgeries Hospitalization History depression Hospitalization History psychiatric hospitalizations (last incident 2013) x5
--- OUTSIDE RECORDS SUMMARY | 2017-08-27 08:35 | XMS REPORT | Encounter Summary ---
Author Author [facility] Organization [facility] Address Unknown Phone Unavailable Care Team Providers Care Animal Control Officer Name Role Phone Christina Black RN Unavailable [...] Unavailable Reason for Visit * Reason Comments Medication Refill Encounter Details Date Type Department Care Team Description 07/24/2017 Telephone Ger Maher MD Medication Refill Rehabilitative Medicine [address] [facility] [address] [place] [address] [place] [address] Social History Tobacco Use Types [...] Telephone Encounter - Nikki Monsalve RN - 07/26/2017 5:42 PM CONSTRUCTION ENGINEER Nurse called pt to discuss Dr. Cain's thoughts on ordering L-Spine MRI - left v /m for patient asking if she has been doing any PT as insurance will require 6 weeks prior to MRI, if she has not we can send via email back exercises for her to being physician directed HEP, then we can order an MRI in about 4 weeks. Nurse also left callback number [phone]. * Telephone Encounter - Nikki Monsalve RN - 07/24/2017 5:02 PM CONSTRUCTION ENGINE[employer] Nurse received v/m from patient today asking if she could possibly move up her apt for cervical TPI, needs some medications refilled and also having LBP from 6" above tailbone down both legs to knees and both hips. Patient stated she saw her PCP who did XR and said she couldn't see anything, wondered if Dr. Cain would wanted to order an MRI of her L Spine, could be coordinated to be done in [place]. Nurse returned the call, advised patient her refills were given 07/19 they should be available at her pharmacy for EMLA cream and Voltaren gel. Nurse assisted pt with rescheduling her 09/05 cervical TPI to 08/15 at [facility]. Nurse let pt know I would discuss her MRI request with Dr. Cain by routing a message and f/u when he has had a chance to review, may be Sunday. Patient v/u and expressed satisfaction. in this encounter Plan of Treatment Not on fileas of this encounter Visit Diagnoses Not on filein this encounter
--- OUTSIDE RECORDS SUMMARY | 2017-08-27 08:35 | XMS REPORT | Encounter Summary ---
Author Author [facility] Organization [facility] Address Unknown Phone Unavailable Care Team Providers Care Rv Detailer Name Role Phone Christina Black RN Unavailable [...] Dougherty MD Unavailable Victoriano Loja MD Unavailable Encounter Details Date Type Department Care Team Description 07/25/2017 Documentation Ger Maher MD [facility]habilitative Medicine [address] [facility] [address] [place] [address] [place] [address] Social History Tobacco Use Types [...] impairment: No 05/02/2017 as of this encounter Progress Notes * Nikki Monsalve, SURINDER - 07/25/2017 8:52 AM COUNTRY PRINTER APPRENTICE Nurse called pt pharmacy [facility], spoke to [facility] who confirmed our recent refill 07/19/17 for EMLA cream and Voltaren gel were not received on their end. Nurse gave verbal prescription for both. in this encounter Plan of Treatment Not on fileas of this encounter Visit Diagnoses Not on filein this encounter
--- OUTSIDE RECORDS SUMMARY | 2017-08-27 08:37 | XMS REPORT ---
Author Author JOHN MORTON [facility] Address [address] [place] [address] Care Team Providers Care Shear Setter Name Role Phone JOHN MORTON Unavailable PROBLEMS Type Condition ICD9-CM Code [id number] Code Onset Dates Condition Status SNOMED Code Problem Gastritis without bleeding, unspecified chronicity, unspecified gastritis type K29.70 Active 748190836 Problem Ataxia R27.0 Active 03645024 Problem Bipolar 1 disorder, mixed F31.60 Active 07094118 Problem Hematuria, unspecified type R31.9 Active 80197902 Problem Hormone replacement therapy Z79.890 Active 039718109 Problem Generalized anxiety disorder F41.1 Active 90083002 Problem Allergic rhinitis J30.9 Active 12472998 Problem Hearing loss, unspecified laterality H91.90 Active 90155123 Problem History of colon polyps Z86.010 Active 518717869 Problem Hot flashes due to menopause N95.1 Active 301063904 Problem Bruising, spontaneous R23.3 Active 308210960 Problem Night sweats R61 Active 56151269 Problem Abnormal CT scan, head R93.0 Active 606805176 Problem Sensorineural hearing loss (SNHL) of both ears H90.3 Active 580053088 Problem Hypertension I10 Active 04404386 Problem Other chronic pain G89.29 Active 97846878 Problem Arthralgia of hip, unspecified laterality M25.559 Active 35181533 Problem Hyperlipidemia, unspecified hyperlipidemia type E78.5 Active 55475578 Problem Major depressive disorder, recurrent episode, moderate F33.1 Active 440805156 Problem Grief F43.20 Active 99779107 ALLERGIES Unknown Allergies SOCIAL HISTORY No smoking Hx information available PLAN OF CARE Activity Details Follow Up 1 Week Reason:BH F/U VITAL SIGNS MEDICATIONS Unknown Medications RESULTS No Results PROCEDURES Procedure Date Ordered Related Diagnosis Body Site Psychotherapy, patient &/family, 45 minutes, established patient Jul 24, 2016 IMMUNIZATIONS No Known Immunizations
--- OUTSIDE RECORDS SUMMARY | 2017-08-27 08:38 | XMS REPORT ---
Author Author NAHOMY HANCOCK [facility] Address [address] [place] [address] Care Team Providers Care Side Gluer Name Role Phone NAHOMY HANCOCK Unavailable PROBLEMS Type Condition ICD9-CM Code [id number] Code Onset Dates Condition Status SNOMED Code Problem Ataxia R27.0 Active 95169681 Problem Allergic rhinitis J30.9 Active 05747912 Problem Hearing loss, unspecified laterality H91.90 Active 85946482 Problem Imbalance R26.89 Active 315872185 Problem [address] scan, head R93.0 Active 819753971 Problem Hammer toe of right foot M20.41 Active 335122295 Problem Hormone replacement therapy Z79.890 Active 996956360 Problem History of colon polyps Z86.010 Active 574318732 Problem Hot flashes due to menopause N95.1 Active 392725471 Problem Hematuria, unspecified type R31.9 Active 94417350 Problem Generalized anxiety disorder F41.1 Active 64168835 Problem Night sweats R61 Active 69498521 Problem Arthralgia of hip, unspecified laterality M25.559 Active 12735592 Problem Sensorineural hearing loss (SNHL) of both ears H90.3 Active 086295389 Problem Bruising, spontaneous R23.3 Active 626292404 Problem Hyperlipidemia, unspecified hyperlipidemia type E78.5 Active 25904577 Problem Grief F43.20 Active 22267014 Problem Hypertension I10 Active 73364502 Problem Gastritis without bleeding, unspecified chronicity, unspecified gastritis type K29.70 Active 919952706 Problem Other chronic pain G89.29 Active 26305939 Problem Bipolar 1 disorder, mixed F31.60 Active 62268520 ALLERGIES No Information SOCIAL HISTORY Never Assessed PLAN OF CARE VITAL SIGNS MEDICATIONS Unknown Medications RESULTS No Results PROCEDURES No Known procedures IMMUNIZATIONS No Known Immunizations MEDICAL (GENERAL) HISTORY Type Description Date Medical [...]
--- OUTSIDE RECORDS SUMMARY | 2017-08-27 08:38 | XMS REPORT ---
Author Author JOHN MORTON [facility] Address [address] [place] [address] Care Team Providers Care Technology Intern Name Role Phone JOHN MORTON Unavailable PROBLEMS Type Condition ICD9-CM Code [id number] Code Onset Dates Condition Status SNOMED Code Problem Bipolar 1 disorder, mixed F31.60 Active 21694372 Problem Hearing loss, unspecified laterality H91.90 Active 43312999 Problem Ataxia R27.0 Active 51905512 Problem Hammer toe of right foot M20.41 Active 209824865 Problem Hormone replacement therapy Z79.890 Active 598262230 Problem Hematuria, unspecified type R31.9 Active 82593697 Problem Hot flashes due to menopause N95.1 Active 881352975 Problem Allergic rhinitis J30.9 Active 42037963 Problem Generalized anxiety disorder F41.1 Active 91156466 Problem History of colon polyps Z86.010 Active 848316712 Problem Bruising, spontaneous R23.3 Active 434775683 Problem Night sweats R61 Active 06258921 Problem [address] CT scan, head R93.0 Active 741220552 Problem Sensorineural hearing loss (SNHL) of both ears H90.3 Active 859404850 Problem Other chronic pain G89.29 Active 39412486 Problem Hyperlipidemia, unspecified hyperlipidemia type E78.5 Active 41131947 Problem Arthralgia of hip, unspecified laterality M25.559 Active 49020440 Problem Grief F43.20 Active 51738965 Problem Hypertension I10 Active 89607055 Problem Gastritis without bleeding, unspecified chronicity, unspecified gastritis type K29.70 Active 648617674 ALLERGIES No Information SOCIAL HISTORY Never Assessed PLAN OF CARE Activity Details Follow Up 1 Week Reason:BH F/U VITAL SIGNS MEDICATIONS Unknown Medications RESULTS No Results PROCEDURES Procedure Date Ordered Result Body Site Psychotherapy, patient &/family, 45 minutes, established patient August 23, 2016 IMMUNIZATIONS No Known Immunizations MEDICAL (GENERAL) HISTORY [...]
--- OUTSIDE RECORDS SUMMARY | 2017-08-27 08:38 | XMS REPORT ---
Author Author JOHN MORTON [facility] Address [address] [place] [address] Care Team Providers Care Religious Activities Director Name Role Phone JOHN MORTON Unavailable PROBLEMS Type Condition ICD9-CM Code [id number] Code Onset Dates Condition Status SNOMED Code Problem Gastritis without bleeding, unspecified chronicity, unspecified gastritis type K29.70 Active 717055082 Problem Ataxia R27.0 Active 14636620 Problem Bipolar 1 disorder, mixed F31.60 Active 79925853 Problem Hematuria, unspecified type R31.9 Active 36455468 Problem Hormone replacement therapy Z79.890 Active 961419717 Problem Generalized anxiety disorder F41.1 Active 31809610 Problem Allergic rhinitis J30.9 Active 49472297 Problem Hearing loss, unspecified laterality H91.90 Active 35342753 Problem History of colon polyps Z86.010 Active 431342150 Problem Hot flashes due to menopause N95.1 Active 241950893 Problem Bruising, spontaneous R23.3 Active 104207272 Problem Night sweats R61 Active 14652468 [address] CT scan, head R93.0 Active 621151372 Problem Sensorineural hearing loss (SNHL) of both ears H90.3 Active 853900519 Problem Hypertension I10 Active 94453049 Problem Other chronic pain G89.29 Active 70734051 Problem Arthralgia of hip, unspecified laterality M25.559 Active 96225951 Problem Hyperlipidemia, unspecified hyperlipidemia type E78.5 Active 34911922 Problem Major depressive disorder, recurrent episode, moderate F33.1 Active 088397922 Problem Grief F43.20 Active 23449932 ALLERGIES No Information SOCIAL HISTORY Never Assessed PLAN OF CARE Activity Details Follow Up 1 Week Reason:BH F/U VITAL SIGNS MEDICATIONS Unknown Medications RESULTS No Results PROCEDURES Procedure Date Ordered Result Body Site Psychotherapy, patient &/family, 45 minutes, established patient Jul 31, 2016 IMMUNIZATIONS No Known Immunizations MEDICAL (GENERAL) [...]
--- OUTSIDE RECORDS SUMMARY | 2017-08-27 08:38 | XMS REPORT ---
Author Author Magen KEERTHI [facility] Address [address] [place] [address] Care Team Providers Care Vice President Consulting Services Name Role Phone theresaLeilaREGINA KEERTHI Unavailable PROBLEMS Type Condition ICD9-CM Code [id number] Code Onset Dates Condition Status SNOMED Code Problem Ataxia R27.0 Active 16574322 Problem Allergic rhinitis J30.9 Active 86086536 Problem Hearing loss, unspecified laterality H91.90 Active 49830404 Problem Imbalance R26.89 Active 565593225 Problem Ab[address] CT scan, head R93.0 Active 797427163 Problem Hammer toe of right foot M20.41 Active 116350603 Problem Hormone replacement therapy Z79.890 Active 733625956 Problem History of colon polyps Z86.010 Active 886953401 Problem Hot flashes due to menopause N95.1 Active 902605981 Problem Hematuria, unspecified type R31.9 Active 86564140 Problem Generalized anxiety disorder F41.1 Active 68135464 Problem Night sweats R61 Active 97995955 Problem Arthralgia of hip, unspecified laterality M25.559 Active 90571095 Problem Sensorineural hearing loss (SNHL) of both ears H90.3 Active 357196881 Problem Bruising, spontaneous R23.3 Active 572099580 Problem Hyperlipidemia, unspecified hyperlipidemia type E78.5 Active 13918083 Problem Grief F43.20 Active 36730957 Problem Hypertension I10 Active 68935269 Problem Gastritis without bleeding, unspecified chronicity, unspecified gastritis type K29.70 Active 203696981 Problem Other chronic pain G89.29 Active 46111549 Problem Bipolar 1 disorder, mixed F31.60 Active 94483651 ALLERGIES Substance Reaction Event Type Date Status Morphine Sulfate Unknown Drug Allergy October, Active Iodine Unknown Drug Allergy October, Active Cipro burning stomach Drug Allergy October, Active Lyrica 75 Mg Capsule Unknown Non Drug Allergy October, Active SOCIAL HISTORY Never Assessed PLAN OF CARE Activity Details Follow Up 2 Months with new provider Reason: VITAL SIGNS Height 64 in 2016-11-07 Weight 145.6 lbs 2016-11-07 Heart Rate 108 bpm 2016-11-07 Respiratory Rate 18 2016-11-07 BMI 24.99 kg/m2 2016-11-07 Blood pressure systolic 126 mmHg 2016-11-07 Blood pressure diastolic 73 mmHg 2016-11-07 MEDICATIONS Medication Instructions Dosage Frequency Start Date End Date Duration Status Flexeril 10 mg by oral route 2 times a day 1 tablet 12h Aug, Active HydrOXYzine HCl 10 MG Orally BID prn anxiety, MAX 45 tabs monthly 1 tablet 30 days Active Ibuprofen 200 MG Orally every 6 hrs 1 tablet as needed 6h Active Multi Vitamin Daily Orally Once a day 1 tablet 24h Active Depakote ER 500 MG Orally at bedtime 2 tabs Feb, Active Probiotic Acidophilus Active Melatonin 5 MG Orally at bedtime 1 Tablet by Oral route 1 time per day HS Aug, Active Voltaren 1 % Transdermal 4 times a day on neck Active Selenium 50 MCG Orally Once a day 1 tablet 24h Active Mucinex 600 MG Orally every 12 hrs 1 tablet as needed 12h Active Magnesium 500 MG Orally Once a day 1 tablet with a meal 24h Dec, Active Vagifem 10 MCG Vaginal Two times a Week 1 tablet Active Fetzima 120 MG Orally Once a day TAKE 1 CAPSULE BY MOUTH DAILY 24h Active Qnasl 80 MCG/ACT Nasally Once a day 2 puffs in each nostril 24h 30 Active Z21-Ayfgkm 1 MG Active Vitamin D3 2000 UNIT Orally Once a day as directed 24h Dec, Active Pantoprazole Sodium 20 MG TAKE 1 TABLET BY MOUTH ONCE DAILY 30 Active Estradiol 2 MG Orally Once a day 1 tablet 24h Active Loratadine 10 mg Orally Once a day 1 tablet 24h 30 Active RESULTS No Results PROCEDURES No Known procedures IMMUNIZATIONS No Known Immunizations MEDICAL (GENERAL) HISTORY Type Description Date Medical History Severe spinal stenosis through cervical spine CT and MRI done 10/2014 at [facility] with Neurosurgery at Medical History Migraine BEAR [...]
--- OUTSIDE RECORDS SUMMARY | 2017-08-27 08:38 | XMS REPORT ---
Author Author JOHN MORTON [facility] Address [address] [place] [address] Care Team Providers Care Nail Feeder Name Role Phone JOHN MORTON Unavailable PROBLEMS Type Condition ICD9-CM Code PIQ39-IC Code Onset Dates Condition Status SNOMED Code Problem Ataxia R27.0 Active 72499350 Problem Allergic rhinitis J30.9 Active 91000825 Problem Hearing loss, unspecified laterality H91.90 Active 80278821 Problem Imbalance R26.89 Active 947662519 [address] scan, head R93.0 Active 196697697 Problem Hammer toe of right foot M20.41 Active 960934954 Problem Hormone replacement therapy Z79.890 Active 442399301 Problem History of colon polyps Z86.010 Active 311319733 Problem Hot flashes due to menopause N95.1 Active 813991008 Problem Hematuria, unspecified type R31.9 Active 37765523 Problem Generalized anxiety disorder F41.1 Active 49174094 Problem Night sweats R61 Active 16207232 Problem Arthralgia of hip, unspecified laterality M25.559 Active 05610066 Problem Sensorineural hearing loss (SNHL) of both ears H90.3 Active 192185334 Problem Bruising, spontaneous R23.3 Active 514842903 Problem Hyperlipidemia, unspecified hyperlipidemia type E78.5 Active 39886803 Problem Grief F43.20 Active 33501392 Problem Hypertension I10 Active 69059073 Problem Gastritis without bleeding, unspecified chronicity, unspecified gastritis type K29.70 Active 278775666 Problem Other chronic pain G89.29 Active 54282755 Problem Bipolar 1 disorder, mixed F31.60 Active 50965700 ALLERGIES No Information SOCIAL HISTORY Never Assessed PLAN OF CARE Activity Details Follow Up 1 Week Reason:BH F/U VITAL SIGNS MEDICATIONS Unknown Medications RESULTS No Results PROCEDURES Procedure Date Ordered Result Body Site Psychotherapy, patient &/family, 45 minutes, established patient November 07, 2016 IMMUNIZATIONS No Known Immunizations MEDICAL (GENERAL) [...]
--- OUTSIDE RECORDS SUMMARY | 2017-08-27 08:39 | XMS REPORT ---
Author Author JOHN MORTON [facility] Address [address] [place] [address] Care Team Providers Care Excel Specialist Name Role Phone JOHN MORTON Unavailable PROBLEMS Type Condition ICD9-CM Code [id number] Code Onset Dates Condition Status SNOMED Code Problem Bipolar 1 disorder, mixed F31.60 Active 82170532 Problem Hearing loss, unspecified laterality H91.90 Active 59762323 Problem Ataxia R27.0 Active 42442762 Problem Hammer toe of right foot M20.41 Active 761889050 Problem Ab[address] scan, head R93.0 Active 704452103 Problem Hematuria, unspecified type R31.9 Active 49899525 Problem Hormone replacement therapy Z79.890 Active 408083556 Problem Hot flashes due to menopause N95.1 Active 278902805 Problem Allergic rhinitis J30.9 Active 76489001 Problem Generalized anxiety disorder F41.1 Active 46462140 Problem History of colon polyps Z86.010 Active 345738275 Problem Bruising, spontaneous R23.3 Active 249023893 Problem Arthralgia of hip, unspecified laterality M25.559 Active 89211344 Problem Sensorineural hearing loss (SNHL) of both ears H90.3 Active 964191979 Problem Night sweats R61 Active 90349274 Problem Hyperlipidemia, unspecified hyperlipidemia type E78.5 Active 09521557 Problem Grief F43.20 Active 60237906 Problem Major depressive disorder, recurrent episode, moderate F33.1 Active 440548750 Problem Other chronic pain G89.29 Active 28911533 Problem Hypertension I10 Active 47129801 Problem Gastritis without bleeding, unspecified chronicity, unspecified gastritis type K29.70 Active 280036678 ALLERGIES No Information SOCIAL HISTORY Never Assessed PLAN OF CARE Activity Details Follow Up 1 Week Reason:BH F/U VITAL SIGNS MEDICATIONS Unknown Medications RESULTS No Results PROCEDURES Procedure Date Ordered Result Body Site Psychotherapy, patient &/family, 45 minutes, established patient Aug 07, 2016 IMMUNIZATIONS No Known Immunizations MEDICAL [...]
--- OUTSIDE RECORDS SUMMARY | 2017-08-27 08:39 | XMS REPORT ---
Author Author JOHN MORTON [facility] Address [address] [place] [address] Care Team Providers Care Magician/Illusionist Name Role Phone JOHN MORTON Unavailable PROBLEMS Type Condition ICD9-CM Code [id number] Code Onset Dates Condition Status SNOMED Code Problem Bipolar 1 disorder, mixed F31.60 Active 09292082 Problem Hearing loss, unspecified laterality H91.90 Active 95318074 Problem Ataxia R27.0 Active 70418521 Problem Hammer toe of right foot M20.41 Active 444894986 Problem Abnormal CT scan, head R93.0 Active 267480688 Problem Hematuria, unspecified type R31.9 Active 05963855 Problem Hormone replacement therapy Z79.890 Active 445374591 Problem Hot flashes due to menopause N95.1 Active 679274203 Problem Allergic rhinitis J30.9 Active 11236404 Problem Generalized anxiety disorder F41.1 Active 01236792 Problem History of colon polyps Z86.010 Active 861420181 Problem Bruising, spontaneous R23.3 Active 196181460 Problem Arthralgia of hip, unspecified laterality M25.559 Active 64040774 Problem Sensorineural hearing loss (SNHL) of both ears H90.3 Active 854842981 Problem Night sweats R61 Active 25535729 Problem Hyperlipidemia, unspecified hyperlipidemia type E78.5 Active 32948333 Problem Grief F43.20 Active 15819241 Problem Major depressive disorder, recurrent episode, moderate F33.1 Active 591180870 Problem Other chronic pain G89.29 Active 31770019 Problem Hypertension I10 Active 01292478 Problem Gastritis without bleeding, unspecified chronicity, unspecified gastritis type K29.70 Active 526522877 ALLERGIES No Information SOCIAL HISTORY Never Assessed PLAN OF CARE Activity Details Follow Up 1 Week Reason:BH F/U VITAL SIGNS MEDICATIONS Unknown Medications RESULTS No Results PROCEDURES Procedure Date Ordered Result Body Site Psychotherapy, patient &/family, 45 minutes, established patient Aug 14, 2016 IMMUNIZATIONS No Known Immunizations MEDICAL (GENERAL) [...]
--- OUTSIDE RECORDS SUMMARY | 2017-08-27 08:39 | XMS REPORT ---
Author Author NAHOMY HANCOCK [facility] Address [address] [place] [address] Care Team Providers Care Knowledge Management Consultant Name Role Phone NAHOMY HANCOCK Unavailable PROBLEMS Type Condition ICD9-CM Code [id number] Code Onset Dates Condition Status SNOMED Code Problem Ataxia R27.0 Active 86198077 Problem Allergic rhinitis J30.9 Active 82806052 Problem Hearing loss, unspecified laterality H91.90 Active 90691355 Problem Imbalance R26.89 Active 810586516 Problem Ab[address] CT scan, head R93.0 Active 020849859 Problem Hammer toe of right foot M20.41 Active 833390814 Problem Hormone replacement therapy Z79.890 Active 846736070 Problem History of colon polyps Z86.010 Active 015066632 Problem Hot flashes due to menopause N95.1 Active 583012345 Problem Hematuria, unspecified type R31.9 Active 25021250 Problem Generalized anxiety disorder F41.1 Active 70806483 Problem Night sweats R61 Active 64507587 Problem Arthralgia of hip, unspecified laterality M25.559 Active 81331615 Problem Sensorineural hearing loss (SNHL) of both ears H90.3 Active 677267513 Problem Bruising, spontaneous R23.3 Active 505301212 Problem Hyperlipidemia, unspecified hyperlipidemia type E78.5 Active 29198218 Problem Grief F43.20 Active 52420541 Problem Hypertension I10 Active 43387411 Problem Gastritis without bleeding, unspecified chronicity, unspecified gastritis type K29.70 Active 207657888 Problem Other chronic pain G89.29 Active 98784105 Problem Bipolar 1 disorder, mixed F31.60 Active 81071993 ALLERGIES No Information SOCIAL HISTORY Never Assessed PLAN OF CARE VITAL SIGNS MEDICATIONS Unknown Medications RESULTS Name Result Date Reference Range TSH 2016-10-25 TSH 3.340 0.450-4.500 LIPID PANEL 2016-10-25 Cholesterol, Total 224 100-199 Triglycerides 150 0-149 HDL Cholesterol 74 >39 VLDL Cholesterol Vern 30 5-40 LDL Cholesterol Calc 120 0-99 Comment: PROCEDURES Procedure Date Ordered Result Body Site [facility] October 25, 2016 VENIPUNCT, ROUTINE* October 25, 2016 IMMUNIZATIONS No Known Immunizations MEDICAL (GENERAL) [...]
--- OUTSIDE RECORDS SUMMARY | 2017-08-27 08:40 | XMS REPORT ---
Author Author Magen KEERTHI [facility] Address [address] [place] [address] Care Team Providers Care Cloth Handler Name Role Phone theresaLeilaREGINA KEERTHI Unavailable PROBLEMS Type Condition ICD9-CM Code [id number] Code Onset Dates Condition Status SNOMED Code Problem Gastritis without bleeding, unspecified chronicity, unspecified gastritis type K29.70 Active 861569177 Problem Ataxia R27.0 Active 30829320 Problem Bipolar 1 disorder, mixed F31.60 Active 06111114 Problem Hematuria, unspecified type R31.9 Active 81760501 Problem Hormone replacement therapy Z79.890 Active 077698796 Problem Generalized anxiety disorder F41.1 Active 26050138 Problem Allergic rhinitis J30.9 Active 38955772 Problem Hearing loss, unspecified laterality H91.90 Active 54376617 Problem History of colon polyps Z86.010 Active 844279616 Problem Hot flashes due to menopause N95.1 Active 595788020 Problem Bruising, spontaneous R23.3 Active 091079280 Problem Night sweats R61 Active 07184524 [address] scan, head R93.0 Active 408917990 Problem Sensorineural hearing loss (SNHL) of both ears H90.3 Active 732123559 Problem Hypertension I10 Active 99332271 Problem Other chronic pain G89.29 Active 25906164 Problem Arthralgia of hip, unspecified laterality M25.559 Active 46242945 Problem Hyperlipidemia, unspecified hyperlipidemia type E78.5 Active 04325991 Problem Major depressive disorder, recurrent episode, moderate F33.1 Active 552991836 Problem Grief F43.20 Active 98057927 ALLERGIES No Information SOCIAL HISTORY Never Assessed PLAN OF CARE VITAL SIGNS MEDICATIONS Medication Instructions Dosage Frequency Start Date End Date Duration Status Depakote ER 500 MG Orally at bedtime 2 tabs Feb, 30 days Active RESULTS No Results PROCEDURES No Known [...]
--- OUTSIDE RECORDS SUMMARY | 2017-08-27 08:40 | XMS REPORT ---
Author Author JOHN MORTON [facility] Address [address] [place] [address] Care Team Providers Care Health Policy Manager Name Role Phone JOHN MORTON Unavailable PROBLEMS Type Condition ICD9-CM Code [id number] Code Onset Dates Condition Status SNOMED Code Problem Gastritis without bleeding, unspecified chronicity, unspecified gastritis type K29.70 Active 305319262 Problem Ataxia R27.0 Active 97222981 Problem Bipolar 1 disorder, mixed F31.60 Active 51573517 Problem Hematuria, unspecified type R31.9 Active 09237692 Problem Hormone replacement therapy Z79.890 Active 735425154 Problem Generalized anxiety disorder F41.1 Active 22744888 Problem Allergic rhinitis J30.9 Active 79635324 Problem Hearing loss, unspecified laterality H91.90 Active 04171401 Problem History of colon polyps Z86.010 Active 599574141 Problem Hot flashes due to menopause N95.1 Active 502863288 Problem Bruising, spontaneous R23.3 Active 473835420 Problem Night sweats R61 Active 01626068 Problem Abnormal CT scan, head R93.0 Active 687585510 Problem Sensorineural hearing loss (SNHL) of both ears H90.3 Active 936003278 Problem Hypertension I10 Active 24876347 Problem Other chronic pain G89.29 Active 05458094 Problem Arthralgia of hip, unspecified laterality M25.559 Active 34109398 Problem Hyperlipidemia, unspecified hyperlipidemia type E78.5 Active 48873293 Problem Major depressive disorder, recurrent episode, moderate F33.1 Active 847398231 Problem Grief F43.20 Active 41463071 ALLERGIES Unknown Allergies SOCIAL HISTORY No smoking Hx information available PLAN OF CARE Activity Details Follow Up 1 Week Reason:BH F/U VITAL SIGNS MEDICATIONS Unknown Medications RESULTS No Results PROCEDURES Procedure Date Ordered Related Diagnosis Body Site Psychotherapy, patient &/family, 45 minutes, established patient Jul 06, 2016 IMMUNIZATIONS No Known Immunizations
--- OUTSIDE RECORDS SUMMARY | 2017-08-27 08:41 | XMS REPORT ---
Author Author NAHOMY HANCOCK [facility] Address [address] [place] [address] Care Team Providers Care Drilling Contractor Name Role Phone NAHOMY HANCOCK Unavailable PROBLEMS Type Condition ICD9-CM Code [id number] Code Onset Dates Condition Status SNOMED Code Problem Bipolar 1 disorder, mixed F31.60 Active 21799684 Problem Hearing loss, unspecified laterality H91.90 Active 06003036 Problem Ataxia R27.0 Active 14890408 Problem Hammer toe of right foot M20.41 Active 722069801 Problem Hormone replacement therapy Z79.890 Active 498656661 Problem Hematuria, unspecified type R31.9 Active 41733691 Problem Hot flashes due to menopause N95.1 Active 695886546 Problem Allergic rhinitis J30.9 Active 02945753 Problem Generalized anxiety disorder F41.1 Active 54704681 Problem History of colon polyps Z86.010 Active 900488140 Problem Bruising, spontaneous R23.3 Active 122406446 Problem Night sweats R61 Active 87096838 [address] Ab[address] CT scan, head R93.0 Active 771479685 Problem Sensorineural hearing loss (SNHL) of both ears H90.3 Active 166690742 Problem Other chronic pain G89.29 Active 67062044 Problem Hyperlipidemia, unspecified hyperlipidemia type E78.5 Active 76495799 Problem Arthralgia of hip, unspecified laterality M25.559 Active 15124275 Problem Grief F43.20 Active 00988293 Problem Hypertension I10 Active 36267242 Problem Gastritis without bleeding, unspecified chronicity, unspecified gastritis type K29.70 Active 471783223 ALLERGIES No Information SOCIAL HISTORY Never Assessed PLAN OF CARE VITAL SIGNS MEDICATIONS Unknown Medications RESULTS No Results PROCEDURES No Known procedures IMMUNIZATIONS No Known Immunizations MEDICAL (GENERAL) HISTORY Type Description Date Medical History Severe spinal stenosis through cervical spine CT and MRI done 10/2014 at [facility] with Neurosurgery at Medical History Migraine BERA Evaluated and tx at Medical History Sensorineural [...]
--- OUTSIDE RECORDS SUMMARY | 2017-08-27 08:42 | XMS REPORT ---
Author Author JOHN MORTON [facility] [address] Address [address] [place] [address] Care Team Providers Care Vegetable Farmworker Name Role Phone JOHN MORTON Unavailable PROBLEMS Type Condition ICD9-CM Code [id number] Code Onset Dates Condition Status SNOMED Code Problem Gastritis without bleeding, unspecified chronicity, unspecified gastritis type K29.70 Active 350074812 Problem Ataxia R27.0 Active 98917781 Problem Bipolar 1 disorder, mixed F31.60 Active 93123909 Problem Hematuria, unspecified type R31.9 Active 16912153 Problem Hormone replacement therapy Z79.890 Active 023898492 Problem Generalized anxiety disorder F41.1 Active 22920223 Problem Allergic rhinitis J30.9 Active 64801137 Problem Hearing loss, unspecified laterality H91.90 Active 43910719 Problem History of colon polyps Z86.010 Active 061358424 Problem Hot flashes due to menopause N95.1 Active 774930729 Problem Bruising, spontaneous R23.3 Active 640878978 Problem Night sweats R61 Active 23824095 Problem Abnormal CT scan, head R93.0 Active 763346077 Problem Sensorineural hearing loss (SNHL) of both ears H90.3 Active 122671233 Problem Hypertension I10 Active 21044826 Problem Other chronic pain G89.29 Active 88055816 Problem Arthralgia of hip, unspecified laterality M25.559 Active 73831916 Problem Hyperlipidemia, unspecified hyperlipidemia type E78.5 Active 86065761 Problem Major depressive disorder, recurrent episode, moderate F33.1 Active 155393637 Problem Grief F43.20 Active 01336270 ALLERGIES Unknown Allergies SOCIAL HISTORY No smoking Hx information available PLAN OF CARE Activity Details Follow Up 1 Week Reason:BH F/U VITAL SIGNS MEDICATIONS Unknown Medications RESULTS No Results PROCEDURES Procedure Date Ordered Related Diagnosis Body Site Psychotherapy, patient &/family, 45 minutes, established patient Jul 17, 2016 IMMUNIZATIONS No Known Immunizations
--- OUTSIDE RECORDS SUMMARY | 2017-08-27 08:42 | XMS REPORT ---
Author Author NAHOMY HANCOCK [facility] Address [address] [place] [address] Care Team Providers Care Vice President Of Nursing Name Role Phone NAHOMY HANCOCK Unavailable PROBLEMS Type Condition ICD9-CM Code [id number] Code Onset Dates Condition Status SNOMED Code Problem Gastritis without bleeding, unspecified chronicity, unspecified gastritis type K29.70 Active 676810234 Problem Ataxia R27.0 Active 16209395 Problem Bipolar 1 disorder, mixed F31.60 Active 37133198 Problem Hematuria, unspecified type R31.9 Active 98854581 Problem Hormone replacement therapy Z79.890 Active 934730212 Problem Generalized anxiety disorder F41.1 Active 02862930 Problem Allergic rhinitis J30.9 Active 26527770 Problem Hearing loss, unspecified laterality H91.90 Active 23735434 Problem History of colon polyps Z86.010 Active 424616535 Problem Hot flashes due to menopause N95.1 Active 252608337 Problem Bruising, spontaneous R23.3 Active 028994344 Problem Night sweats R61 Active 10699420 Problem Abnormal CT scan, head R93.0 Active 091996015 Problem Sensorineural hearing loss (SNHL) of both ears H90.3 Active 096333211 Problem Hypertension I10 Active 95204950 Problem Other chronic pain G89.29 Active 59988228 Problem Arthralgia of hip, unspecified laterality M25.559 Active 73988674 Problem Hyperlipidemia, unspecified hyperlipidemia type E78.5 Active 44265697 Problem Major depressive disorder, recurrent episode, moderate F33.1 Active 606241448 Problem Grief F43.20 Active 64614877 ALLERGIES Unknown Allergies SOCIAL HISTORY No smoking Hx information available PLAN OF CARE VITAL SIGNS MEDICATIONS Unknown Medications RESULTS No Results PROCEDURES No Known procedures IMMUNIZATIONS No Known Immunizations
--- OUTSIDE RECORDS SUMMARY | 2017-08-27 08:42 | XMS REPORT ---
Author Author JOHN MORTON [facility] Address [address] [place] [address] Care Team Providers Care Regional Commercial Sales Manager Name Role Phone JOHN MROTON Unavailable PROBLEMS Type Condition ICD9-CM Code UDR18-[id number] Code Onset Dates Condition Status SNOMED Code Problem Ataxia R27.0 Active 01980946 Problem Allergic rhinitis J30.9 Active 56891265 Problem Hearing loss, unspecified laterality H91.90 Active 72176773 Problem Imbalance R26.89 Active 271973005 Problem Ab[address] CT scan, head R93.0 Active 988553450 Problem Hammer toe of right foot M20.41 Active 603182658 Problem Hormone replacement therapy Z79.890 Active 494792860 Problem History of colon polyps Z86.010 Active 134579861 Problem Hot flashes due to menopause N95.1 Active 426172202 Problem Hematuria, unspecified type R31.9 Active 23748505 Problem Generalized anxiety disorder F41.1 Active 06266747 Problem Night sweats R61 Active 69139786 Problem Arthralgia of hip, unspecified laterality M25.559 Active 96196591 Problem Sensorineural hearing loss (SNHL) of both ears H90.3 Active 763709717 Problem Bruising, spontaneous R23.3 Active 551610655 Problem Hyperlipidemia, unspecified hyperlipidemia type E78.5 Active 38968540 Problem Grief F43.20 Active 66622348 Problem Hypertension I10 Active 90642734 Problem Gastritis without bleeding, unspecified chronicity, unspecified gastritis type K29.70 Active 667555275 Problem Other chronic pain G89.29 Active 84250045 Problem Bipolar 1 disorder, mixed F31.60 Active 87816484 ALLERGIES No Information SOCIAL HISTORY Never Assessed PLAN OF CARE Activity Details Follow Up 1 Week Reason:BH F/U VITAL SIGNS MEDICATIONS Unknown Medications RESULTS No Results PROCEDURES Procedure Date Ordered Result Body Site Psychotherapy, patient &/family, 45 minutes, established patient October 25, 2016 IMMUNIZATIONS No Known Immunizations [...]
--- OUTSIDE RECORDS SUMMARY | 2017-08-27 08:42 | XMS REPORT ---
Author Author JOHN MORTON [facility] Address [address] [place] [address] Care Team Providers Care Nuclear Reactor Technician Name Role Phone JOHN MORTON Unavailable PROBLEMS Type Condition ICD9-CM Code [id number] Code Onset Dates Condition Status SNOMED Code Problem Gastritis without bleeding, unspecified chronicity, unspecified gastritis type K29.70 Active 446481562 Problem Hearing loss, unspecified laterality H91.90 Active 23931015 Problem Bipolar 1 disorder, mixed F31.60 Active 03334045 Problem Hematuria, unspecified type R31.9 Active 24713045 Problem Sensorineural hearing loss (SNHL) of both ears H90.3 Active 234512773 Problem Generalized anxiety disorder F41.1 Active 85280423 Problem Allergic rhinitis J30.9 Active 97847659 Problem Ataxia R27.0 Active 41865755 Problem History of colon polyps Z86.010 Active 116330919 Problem Hot flashes due to menopause N95.1 Active 657911469 Problem Night sweats R61 Active 17828314 Problem Bruising, spontaneous R23.3 Active 090038452 Problem Abnormal CT scan, head R93.0 Active 624432724 Problem Hormone replacement therapy Z79.890 Active 596567630 Problem Hypertension I10 Active 15877444 Problem Other chronic pain G89.29 Active 44667918 Problem Arthralgia of hip, unspecified laterality M25.559 Active 03907879 Problem Hyperlipidemia, unspecified hyperlipidemia type E78.5 Active 95106471 Problem Major depressive disorder, recurrent episode, moderate F33.1 Active 950371203 Problem Grief F43.20 Active 94405458 ALLERGIES Unknown Allergies SOCIAL HISTORY No smoking Hx information available PLAN OF CARE Activity Details Follow Up 2 Weeks Reason:BH F/U VITAL SIGNS MEDICATIONS Unknown Medications RESULTS No Results PROCEDURES Procedure Date Ordered Related Diagnosis Body Site Psychotherapy, patient &/family, 45 minutes, established patient Jun 07, 2016 IMMUNIZATIONS No Known Immunizations
--- OUTSIDE RECORDS SUMMARY | 2017-08-27 08:43 | XMS REPORT ---
Author Author JOHN MORTON [facility] Address [address] [place] [address] Care Team Providers Care Manager Product Management Name Role Phone JOHN MORTON Unavailable PROBLEMS Type Condition ICD9-CM Code [id number] Code Onset Dates Condition Status SNOMED Code Problem Gastritis without bleeding, unspecified chronicity, unspecified gastritis type K29.70 Active 048648053 Problem Ataxia R27.0 Active 41390763 Problem Bipolar 1 disorder, mixed F31.60 Active 25067939 Problem Hematuria, unspecified type R31.9 Active 68758557 Problem Hormone replacement therapy Z79.890 Active 928952675 Problem Generalized anxiety disorder F41.1 Active 07450299 Problem Allergic rhinitis J30.9 Active 73989080 Problem Hearing loss, unspecified laterality H91.90 Active 92586918 Problem History of colon polyps Z86.010 Active 819331950 Problem Hot flashes due to menopause N95.1 Active 484840911 Problem Bruising, spontaneous R23.3 Active 802591239 Problem Night sweats R61 Active 65085302 Problem Abnormal CT scan, head R93.0 Active 220971812 Problem Sensorineural hearing loss (SNHL) of both ears H90.3 Active 050462562 Problem Hypertension I10 Active 18301071 Problem Other chronic pain G89.29 Active 70551853 Problem Arthralgia of hip, unspecified laterality M25.559 Active 44783882 Problem Hyperlipidemia, unspecified hyperlipidemia type E78.5 Active 89471603 Problem Major depressive disorder, recurrent episode, moderate F33.1 Active 095530335 Problem Grief F43.20 Active 84769464 ALLERGIES Substance Reaction Event Type Date Status Morphine Sulfate Unknown Drug Allergy Jun, Active Iodine Unknown Drug Allergy Jun, Active Cipro burning stomach Drug Allergy Jun, Active Lyrica 75 Mg Capsule Unknown Non Drug Allergy Jun, Active SOCIAL HISTORY No smoking Hx information available PLAN OF CARE Activity Details Follow Up 1 Week Reason:BH F/U VITAL SIGNS MEDICATIONS Unknown Medications RESULTS No Results PROCEDURES Procedure Date Ordered Related Diagnosis Body Site Psychotherapy, patient &/family, 45 minutes, established patient Jun 23, 2016 IMMUNIZATIONS No Known Immunizations
--- OUTSIDE RECORDS SUMMARY | 2017-08-27 08:43 | XMS REPORT ---
Author Author JOHN MORTON [facility] Address [address] [place] [address] Care Team Providers Care Straddle Bug Operator Name Role Phone JOHN MORTON Unavailable PROBLEMS Type Condition ICD9-CM Code [id number] Code Onset Dates Condition Status SNOMED Code Problem Bipolar 1 disorder, mixed F31.60 Active 09993394 Problem Hearing loss, unspecified laterality H91.90 Active 63975528 Problem Ataxia R27.0 Active 63493426 Problem Hammer toe of right foot M20.41 Active 622590560 Problem Hormone replacement therapy Z79.890 Active 920330632 Problem Hematuria, unspecified type R31.9 Active 96107982 Problem Hot flashes due to menopause N95.1 Active 172551799 Problem Allergic rhinitis J30.9 Active 15220819 Problem Generalized anxiety disorder F41.1 Active 00940862 Problem History of colon polyps Z86.010 Active 984452771 Problem Bruising, spontaneous R23.3 Active 413739231 Problem Night sweats R61 Active 58098956 Problem Abnormal CT scan, head R93.0 Active 885229197 Problem Sensorineural hearing loss (SNHL) of both ears H90.3 Active 012724971 Problem Other chronic pain G89.29 Active 44857225 Problem Hyperlipidemia, unspecified hyperlipidemia type E78.5 Active 03157454 Problem Arthralgia of hip, unspecified laterality M25.559 Active 58859068 Problem Grief F43.20 Active 24181141 Problem Hypertension I10 Active 55660381 Problem Gastritis without bleeding, unspecified chronicity, unspecified gastritis type K29.70 Active 598239634 ALLERGIES No Information SOCIAL HISTORY Never Assessed PLAN OF CARE Activity Details Follow Up 2 Weeks Reason:BH F/U VITAL SIGNS MEDICATIONS Unknown Medications RESULTS No Results PROCEDURES Procedure Date Ordered Result Body Site Psychotherapy, patient &/family, 45 minutes, established patient August 28, 2016 IMMUNIZATIONS No Known Immunizations MEDICAL (GENERAL) [...]
--- OUTSIDE RECORDS SUMMARY | 2017-08-27 08:43 | XMS REPORT ---
Author Author NAHOMY HANCOCK [facility] Address [address] [place] [address] Care Team Providers Care Channel Executive Name Role Phone NAHOMY HANCOCK Unavailable PROBLEMS Type Condition ICD9-CM Code [id number] Code Onset Dates Condition Status SNOMED Code Problem Ataxia R27.0 Active 39837185 Problem Allergic rhinitis J30.9 Active 81991494 Problem Hearing loss, unspecified laterality H91.90 Active 51947934 Problem Imbalance R26.89 Active 682681412 Problem [address] scan, head R93.0 Active 472060816 Problem Hammer toe of right foot M20.41 Active 301961226 Problem Hormone replacement therapy Z79.890 Active 762393312 Problem History of colon polyps Z86.010 Active 430236212 Problem Hot flashes due to menopause N95.1 Active 771720120 Problem Hematuria, unspecified type R31.9 Active 71150295 Problem Generalized anxiety disorder F41.1 Active 57598373 Problem Night sweats R61 Active 19310403 Problem Arthralgia of hip, unspecified laterality M25.559 Active 44010448 Problem Sensorineural hearing loss (SNHL) of both ears H90.3 Active 532845917 Problem Bruising, spontaneous R23.3 Active 516066588 Problem Hyperlipidemia, unspecified hyperlipidemia type E78.5 Active 78605204 Problem Grief F43.20 Active 40157379 Problem Hypertension I10 Active 95607190 Problem Gastritis without bleeding, unspecified chronicity, unspecified gastritis type K29.70 Active 832518790 Problem Other chronic pain G89.29 Active 95729976 Problem Bipolar 1 disorder, mixed F31.60 Active 08892044 ALLERGIES Substance Reaction Event Type Date Status Morphine Sulfate Unknown Drug Allergy Sep, Active Iodine Unknown Drug Allergy Sep, Active Cipro burning stomach Drug Allergy Sep, Active Lyrica 75 Mg Capsule Unknown Non Drug Allergy Sep, Active SOCIAL HISTORY Never Assessed PLAN OF CARE Activity Details Follow Up 4 Weeks Reason:fasting labs VITAL SIGNS Height 64 in 2016-09-25 Weight 144.5 lbs 2016-09-25 Temperature 98.4 degrees Fahrenheit 2016-09-25 Heart Rate 78 bpm 2016-09-25 Respiratory Rate 20 2016-09-25 BMI 24.80 kg/m2 2016-09-25 Blood pressure systolic 128 mmHg 2016-09-25 Blood pressure diastolic 80 mmHg 2016-09-25 MEDICATIONS Medication Instructions Dosage Frequency Start Date End Date Duration Status Multi Vitamin Daily Orally Once a day 1 tablet 24h Active Estradiol 2 MG Orally Once a day 1 tablet 24h Active Fetzima 120 MG Orally Once a day TAKE 1 CAPSULE BY MOUTH DAILY 24h 30 Active Ibuprofen 200 MG Orally every 6 hrs 1 tablet as needed 6h Active Mucinex 600 MG Orally every 12 hrs 1 tablet as needed 12h Active Vagifem 10 MCG Vaginal Two times a Week 1 tablet Active Magnesium 500 MG Orally Once a day 1 tablet with a meal 24h Dec, Active HydrOXYzine HCl 10 MG Orally one time a day prn anxiety 1 tablet 30 days Active Voltaren 1 % Transdermal 4 times a day on neck Active Probiotic Acidophilus Active Qnasl 80 MCG/ACT Nasally Once a day 2 puffs in each nostril 24h Jun, 30 day(s) Active Melatonin 5 MG Orally at bedtime 1 Tablet by Oral route 1 time per day HS Aug, Active Vitamin D3 2000 UNIT Orally Once a day as directed 24h Dec, Active Selenium 50 MCG Orally Once a day 1 tablet 24h Active Loratadine 10 mg Orally Once a day 1 tablet 24h Jun, October, 30 day(s) Active W64-[id number] 1 MG Active Pantoprazole Sodium 20 MG TAKE 1 TABLET BY MOUTH ONCE DAILY 30 Active Flexeril 10 mg by oral route 2 times a day 1 tablet 12h Aug, Active Depakote ER 500 MG Orally at bedtime 2 tabs Feb, Active RESULTS No Results PROCEDURES No Known [...]
--- OUTSIDE RECORDS SUMMARY | 2017-08-27 08:44 | XMS REPORT ---
Author Author NAHOMY HANCOCK [facility] Address [address] [place] [address] Care Team Providers Care Detail Sergeant Name Role Phone NAHOMY HANCOCK Unavailable PROBLEMS Type Condition ICD9-CM Code [id number] Code Onset Dates Condition Status SNOMED Code Problem Bipolar 1 disorder, mixed F31.60 Active 85642129 Problem Hearing loss, unspecified laterality H91.90 Active 13502750 Problem Ataxia R27.0 Active 20223418 Problem Hammer toe of right foot M20.41 Active 954905138 Problem Hormone replacement therapy Z79.890 Active 663393194 Problem Hematuria, unspecified type R31.9 Active 78207544 Problem Hot flashes due to menopause N95.1 Active 016890915 Problem Allergic rhinitis J30.9 Active 38976623 Problem Generalized anxiety disorder F41.1 Active 25324544 Problem History of colon polyps Z86.010 Active 013105055 Problem Bruising, spontaneous R23.3 Active 980088603 Problem Night sweats R61 Active 08498840 Problem Abnormal CT scan, head R93.0 Active 581798972 Problem Sensorineural hearing loss (SNHL) of both ears H90.3 Active 751943866 Problem Other chronic pain G89.29 Active 94450422 Problem Hyperlipidemia, unspecified hyperlipidemia type E78.5 Active 23485517 Problem Arthralgia of hip, unspecified laterality M25.559 Active 52668889 Problem Grief F43.20 Active 20745771 Problem Hypertension I10 Active 22684303 Problem Gastritis without bleeding, unspecified chronicity, unspecified gastritis type K29.70 Active 056866278 ALLERGIES Substance Reaction Event Type Date Status Morphine Sulfate Unknown Drug Allergy Aug, Active Iodine Unknown Drug Allergy Aug, Active Cipro burning stomach Drug Allergy Aug, Active Lyrica 75 Mg Capsule Unknown Non Drug Allergy Aug, Active SOCIAL HISTORY Never Assessed PLAN OF CARE Activity Details Follow Up 4 Weeks Reason:depression VITAL SIGNS Height 64 in 2016-08-23 Weight 145.0 lbs 2016-08-23 Temperature 98.0 degrees Fahrenheit 2016-08-23 Heart Rate 80 bpm 2016-08-23 Respiratory Rate 20 2016-08-23 BMI 24.89 kg/m2 2016-08-23 Blood pressure systolic 136 mmHg 2016-08-23 Blood pressure diastolic 78 mmHg 2016-08-23 MEDICATIONS Medication Instructions Dosage Frequency Start Date End Date Duration Status Probiotic Acidophilus Active Magnesium 500 MG Orally Once a day 1 tablet with a meal 24h Dec, Active Loratadine 10 mg Orally Once a day 1 tablet 24h Jun, October, 30 day(s) Active Ibuprofen 200 MG Orally every 6 hrs 1 tablet as needed 6h Active Vagifem 10 MCG Vaginal Two times a Week 1 tablet Aug, 90 days Active Qnasl 80 MCG/ACT Nasally Once a day 2 puffs in each nostril 24h Jun, 30 day(s) Active Vitamin D3 2000 UNIT Orally Once a day as directed 24h Dec, Active Voltaren 1 % Transdermal 4 times a day on neck Active Melatonin 5 MG Orally at bedtime 1 Tablet by Oral route 1 time per day HS Aug, Active HydrOXYzine HCl 10 MG Orally one time a day prn anxiety 1 tablet 30 days Active Pantoprazole Sodium 20 MG TAKE 1 TABLET BY MOUTH ONCE DAILY 30 Active Vagifem 10 MCG Vaginal Two times a Week 1 tablet Active Flexeril 10 mg by oral route 2 times a day 1 tablet 12h Aug, Active Depakote ER 500 MG Orally at bedtime 2 tabs Feb, Active Mucinex 600 MG Orally every 12 hrs 1 tablet as needed 12h Active Q86-Ctpjfo 1 MG Active Selenium 50 MCG Orally Once a day 1 tablet 24h Active Estradiol 2 MG Orally Once a day 1 tablet 24h Active Multi Vitamin Daily Orally Once a [...]
--- OUTSIDE RECORDS SUMMARY | 2017-08-27 08:45 | XMS REPORT ---
Author Author NAHOMY HANCOCK [facility] Address [address] [place] [address] Care Team Providers Care Scarfer Operator Name Role Phone NAHOMY HANCOCK Unavailable PROBLEMS Type Condition ICD9-CM Code SUR27-JH Code Onset Dates Condition Status SNOMED Code Problem Gastritis without bleeding, unspecified chronicity, unspecified gastritis type K29.70 Active 805652165 Problem Ataxia R27.0 Active 70818438 Problem Bipolar 1 disorder, mixed F31.60 Active 15477769 Problem Hematuria, unspecified type R31.9 Active 89047375 Problem Hormone replacement therapy Z79.890 Active 938860251 Problem Generalized anxiety disorder F41.1 Active 47986438 Problem Allergic rhinitis J30.9 Active 74912891 Problem Hearing loss, unspecified laterality H91.90 Active 00147489 Problem History of colon polyps Z86.010 Active 568656782 Problem Hot flashes due to menopause N95.1 Active 438283445 Problem Bruising, spontaneous R23.3 Active 202539716 Problem Night sweats R61 Active 74383521 [address] scan, head R93.0 Active 008135756 Problem Sensorineural hearing loss (SNHL) of both ears H90.3 Active 026523658 Problem Hypertension I10 Active 69271363 Problem Other chronic pain G89.29 Active 51233682 Problem Arthralgia of hip, unspecified laterality M25.559 Active 66243641 Problem Hyperlipidemia, unspecified hyperlipidemia type E78.5 Active 55733531 Problem Major depressive disorder, recurrent episode, moderate F33.1 Active 502598947 Problem Grief F43.20 Active 10757586 ALLERGIES Unknown Allergies SOCIAL HISTORY No smoking Hx information available PLAN OF CARE VITAL SIGNS MEDICATIONS Unknown Medications RESULTS No Results PROCEDURES No Known procedures IMMUNIZATIONS No Known Immunizations
--- OUTSIDE RECORDS SUMMARY | 2017-08-27 08:45 | XMS REPORT ---
Author Author NAHOMY HANCOCK [facility] Address [address] [place] [address] Care Team Providers Care Icer Air Conditioning Name Role Phone NAHOMY HANCOCK Unavailable PROBLEMS Type Condition ICD9-CM Code RDB87-TU Code Onset Dates Condition Status SNOMED Code Problem Gastritis without bleeding, unspecified chronicity, unspecified gastritis type K29.70 Active 710470000 Problem Ataxia R27.0 Active 56010379 Problem Bipolar 1 disorder, mixed F31.60 Active 77517480 Problem Hematuria, unspecified type R31.9 Active 68772404 Problem Hormone replacement therapy Z79.890 Active 990318988 Problem Generalized anxiety disorder F41.1 Active 07284004 Problem Allergic rhinitis J30.9 Active 83123933 Problem Hearing loss, unspecified laterality H91.90 Active 34080339 Problem History of colon polyps Z86.010 Active 950682564 Problem Hot flashes due to menopause N95.1 Active 429572089 Problem Bruising, spontaneous R23.3 Active 191298332 Problem Night sweats R61 Active 05061787 Problem Abnormal CT scan, head R93.0 Active 809023397 Problem Sensorineural hearing loss (SNHL) of both ears H90.3 Active 190502994 Problem Hypertension I10 Active 31844799 Problem Other chronic pain G89.29 Active 78850186 Problem Arthralgia of hip, unspecified laterality M25.559 Active 66475782 Problem Hyperlipidemia, unspecified hyperlipidemia type E78.5 Active 11311638 Problem Major depressive disorder, recurrent episode, moderate F33.1 Active 916728634 Problem Grief F43.20 Active 84304562 ALLERGIES Substance Reaction Event Type Date Status Morphine Sulfate Unknown Drug Allergy Jun, Active Iodine Unknown Drug Allergy Jun, Active Cipro burning stomach Drug Allergy Jun, Active Lyrica 75 Mg Capsule Unknown Non Drug Allergy Jun, Active SOCIAL HISTORY No smoking Hx information available PLAN OF CARE Activity Details Follow Up 4 Weeks Reason:depression VITAL SIGNS Height 64 in 2016-06-28 Weight 141 lbs 2016-06-28 Temperature 98.6 degrees Fahrenheit 2016-06-28 Heart Rate 88 bpm 2016-06-28 Respiratory Rate 18 2016-06-28 BMI 24.20 kg/m2 2016-06-28 Blood pressure systolic 110 mmHg 2016-06-28 Blood pressure diastolic 70 mmHg 2016-06-28 MEDICATIONS Medication Instructions Dosage Frequency Start Date End Date Duration Status Diazepam 2 MG Orally Four times a day 1 tablet as needed 6h Active Ibuprofen 200 MG Orally every 6 hrs 1 tablet as needed 6h Active Magnesium 500 MG Orally Once a day 1 tablet with a meal 24h Dec, Active Vitamin D3 2000 UNIT Orally Once a day as directed 24h Dec, Active Multi Vitamin Daily Orally Once a day 1 tablet 24h Active Rhinocort Allergy 32 MCG/ACT Nasally Once a day 2 puffs in each nostril 24h Jun, 30 day(s) Active Vagifem 10 MCG Vaginal Two times a Week 1 tablet Active Fetzima 120 MG Orally Once a day TAKE 1 CAPSULE BY MOUTH DAILY 24h 30 days Active Flexeril 10 mg by oral route 2 times a day 1 tablet 12h Aug, Active Protonix 40 MG Orally Once a day 1 tablet 24h Active Probiotic Acidophilus Active Estradiol 2 MG Orally Once a day 1 tablet 24h Active Melatonin 5 MG Orally at bedtime 1 Tablet by Oral route 1 time per day HS Aug, Active Mucinex 600 MG Orally every 12 hrs 1 tablet as needed 12h Active M50-Gzxmdo 1 MG Active HydrOXYzine HCl 10 mg Orally 3 times a day PRN 1 tablet Active Loratadine 10 mg Orally Once a day 1 tablet 24h Jun, October, 30 day(s) Active Depakote ER 500 MG Orally at bedtime 2 tabs Feb, Active RESULTS No Results PROCEDURES Procedure Date Ordered Related Diagnosis Body Site Office Visit, Est Pt., Level 3 Jun 28, 2016 IMMUNIZATIONS No Known Immunizations
--- OUTSIDE RECORDS SUMMARY | 2017-08-27 08:46 | XMS REPORT ---
Author Author JOHN MORTON [facility] Address [address] [place] [address] Care Team Providers Care Call Specialist Name Role Phone JOHN MORTON Unavailable PROBLEMS Type Condition ICD9-CM Code LNB14-DS Code Onset Dates Condition Status SNOMED Code Problem Ataxia R27.0 Active 28419641 Problem Allergic rhinitis J30.9 Active 07883614 Problem Hearing loss, unspecified laterality H91.90 Active 84761732 Problem Imbalance R26.89 Active 465694438 Problem Ab[address] CT scan, head R93.0 Active 318951086 Problem Hammer toe of right foot M20.41 Active 815434218 Problem Hormone replacement therapy Z79.890 Active 714253725 Problem History of colon polyps Z86.010 Active 582886592 Problem Hot flashes due to menopause N95.1 Active 901941296 Problem Hematuria, unspecified type R31.9 Active 89448867 Problem Generalized anxiety disorder F41.1 Active 87869863 Problem Night sweats R61 Active 17280993 Problem Arthralgia of hip, unspecified laterality M25.559 Active 95759732 Problem Sensorineural hearing loss (SNHL) of both ears H90.3 Active 643666720 Problem Bruising, spontaneous R23.3 Active 407461874 Problem Hyperlipidemia, unspecified hyperlipidemia type E78.5 Active 95111736 Problem Grief F43.20 Active 30423207 Problem Hypertension I10 Active 83334518 Problem Gastritis without bleeding, unspecified chronicity, unspecified gastritis type K29.70 Active 948862608 Problem Other chronic pain G89.29 Active 75235662 Problem Bipolar 1 disorder, mixed F31.60 Active 98163816 ALLERGIES No Information SOCIAL HISTORY Never Assessed PLAN OF CARE Activity Details Follow Up 1 Week Reason:BH F/U VITAL SIGNS MEDICATIONS Unknown Medications RESULTS No Results PROCEDURES Procedure Date Ordered Result Body Site Psychotherapy, patient &/family, 45 minutes, established patient October 30, 2016 IMMUNIZATIONS No Known Immunizations MEDICAL (GENERAL) [...]
--- OUTSIDE RECORDS SUMMARY | 2017-08-27 08:46 | XMS REPORT ---
Author Author NAHOMY HANCOCK [facility] Address [address] [place] [address] Care Team Providers Care Telephone Betting Clerk Name Role Phone NAHOMY HANCOCK Unavailable PROBLEMS Type Condition ICD9-CM Code XVE31-DD Code Onset Dates Condition Status SNOMED Code Problem Ataxia R27.0 Active 88940649 Problem Allergic rhinitis J30.9 Active 37831990 Problem Hearing loss, unspecified laterality H91.90 Active 06820021 Problem Imbalance R26.89 Active 609495382 Problem Ab[address] CT scan, head R93.0 Active 245310015 Problem Hammer toe of right foot M20.41 Active 695034882 Problem Hormone replacement therapy Z79.890 Active 826291013 Problem History of colon polyps Z86.010 Active 109578183 Problem Hot flashes due to menopause N95.1 Active 897878965 Problem Hematuria, unspecified type R31.9 Active 06944621 Problem Generalized anxiety disorder F41.1 Active 63616156 Problem Night sweats R61 Active 13804110 Problem Arthralgia of hip, unspecified laterality M25.559 Active 62171178 Problem Sensorineural hearing loss (SNHL) of both ears H90.3 Active 524146372 Problem Bruising, spontaneous R23.3 Active 441452949 Problem Hyperlipidemia, unspecified hyperlipidemia type E78.5 Active 57916047 Problem Grief F43.20 Active 05072281 Problem Hypertension I10 Active 36042471 Problem Gastritis without bleeding, unspecified chronicity, unspecified gastritis type K29.70 Active 127036775 Problem Other chronic pain G89.29 Active 58587648 Problem Bipolar 1 disorder, mixed F31.60 Active 40579186 ALLERGIES Substance Reaction Event Type Date Status Morphine Sulfate Unknown Drug Allergy October, Active Iodine Unknown Drug Allergy October, Active Cipro burning stomach Drug Allergy October, Active Lyrica 75 Mg Capsule Unknown Non Drug Allergy October, Active SOCIAL HISTORY Never Assessed PLAN OF CARE Activity Details Follow Up 4 Weeks Reason: VITAL SIGNS Height 64 in 2016-10-25 Weight 146 lbs 2016-10-25 Temperature 98.4 degrees Fahrenheit 2016-10-25 Heart Rate 76 bpm 2016-10-25 Respiratory Rate 18 2016-10-25 BMI 25.06 kg/m2 2016-10-25 Blood pressure systolic 126 mmHg 2016-10-25 Blood pressure diastolic 72 mmHg 2016-10-25 MEDICATIONS Medication Instructions Dosage Frequency Start Date End Date Duration Status Flexeril 10 mg by oral route 2 times a day 1 tablet 12h Aug, Active Estradiol 2 MG Orally Once a day 1 tablet 24h Active Ibuprofen 200 MG Orally every 6 hrs 1 tablet as needed 6h Active HydrOXYzine HCl 10 MG Orally one time a day prn anxiety 1 tablet 30 days Active Multi Vitamin Daily Orally Once a day 1 tablet 24h Active Probiotic Acidophilus Active W52-Roospx 1 MG Active Voltaren 1 % Transdermal 4 times a day on neck Active Selenium 50 MCG Orally Once a day 1 tablet 24h Active Vagifem 10 MCG Vaginal Two times a Week 1 tablet Active Fetzima 120 MG Orally Once a day TAKE 1 CAPSULE BY MOUTH DAILY 24h 30 Active Melatonin 5 MG Orally at bedtime 1 Tablet by Oral route 1 time per day HS Aug, Active Mucinex 600 MG Orally every 12 hrs 1 tablet as needed 12h Active Qnasl 80 MCG/ACT Nasally Once a day 2 puffs in each nostril 24h 30 Active Pantoprazole Sodium 20 MG TAKE 1 TABLET BY MOUTH ONCE DAILY 30 Active Vitamin D3 2000 UNIT Orally Once a day as directed 24h Dec, Active Depakote ER 500 MG Orally at bedtime 2 tabs Feb, Active Magnesium 500 MG Orally Once a [...]
--- OUTSIDE RECORDS SUMMARY | 2017-08-27 08:46 | XMS REPORT ---
Author Author Magen KEERTHI [facility] Address [address] [place] [address] Care Team Providers Care Health Program Manager Name Role Phone theresaLeilaREGINA KEERTHI Unavailable PROBLEMS Type Condition ICD9-CM Code XCX18-RK Code Onset Dates Condition Status SNOMED Code Problem Bipolar 1 disorder, mixed F31.60 Active 32230458 Problem Hearing loss, unspecified laterality H91.90 Active 64856928 Problem Ataxia R27.0 Active 04476375 Problem Hammer toe of right foot M20.41 Active 033104249 Problem Ab[address] CT scan, head R93.0 Active 427254864 Problem Hematuria, unspecified type R31.9 Active 79296031 Problem Hormone replacement therapy Z79.890 Active 283701708 Problem Hot flashes due to menopause N95.1 Active 388592263 Problem Allergic rhinitis J30.9 Active 83190295 Problem Generalized anxiety disorder F41.1 Active 90891110 Problem History of colon polyps Z86.010 Active 735541616 Problem Bruising, spontaneous R23.3 Active 180493874 Problem Arthralgia of hip, unspecified laterality M25.559 Active 76237677 Problem Sensorineural hearing loss (SNHL) of both ears H90.3 Active 694510147 Problem Night sweats R61 Active 53563902 Problem Hyperlipidemia, unspecified hyperlipidemia type E78.5 Active 25113111 Problem Grief F43.20 Active 07390498 Problem Major depressive disorder, recurrent episode, moderate F33.1 Active 527485378 Problem Other chronic pain G89.29 Active 80784926 Problem Hypertension I10 Active 39685559 Problem Gastritis without bleeding, unspecified chronicity, unspecified gastritis type K29.70 Active 390772544 ALLERGIES Substance Reaction Event Type Date Status Morphine Sulfate Unknown Drug Allergy Jul, Active Iodine Unknown Drug Allergy Jul, Active Cipro burning stomach Drug Allergy Jul, Active Lyrica 75 Mg Capsule Unknown Non Drug Allergy Jul, Active SOCIAL HISTORY Never Assessed PLAN OF CARE Activity Details Follow Up 3 Months Reason: VITAL SIGNS Height 64 in 2016-08-08 Weight 141.0 lbs 2016-08-08 Heart Rate 118 bpm 2016-08-08 Respiratory Rate 22 2016-08-08 BMI 24.20 kg/m2 2016-08-08 Blood pressure systolic 104 mmHg 2016-08-08 Blood pressure diastolic 73 mmHg 2016-08-08 MEDICATIONS Medication Instructions Dosage Frequency Start Date End Date Duration Status Depakote ER 500 MG Orally at bedtime 2 tabs Feb, Active Flexeril 10 mg by oral route 2 times a day 1 tablet 12h 18 Aug, 2014 Active Melatonin 5 MG Orally at bedtime 1 Tablet by Oral route 1 time per day HS Aug, Active Fetzima 120 MG Orally Once a day TAKE 1 CAPSULE BY MOUTH DAILY 24h 30 Active Vitamin D3 2000 UNIT Orally Once a day as directed 24h Dec, Active Loratadine 10 mg Orally Once a day 1 tablet 24h Jun, October, 30 day(s) Active Protonix 40 MG Orally Once a day 1 tablet 24h Active Ibuprofen 200 MG Orally every 6 hrs 1 tablet as needed 6h Active M95-Hgzxde 1 MG Active Multi Vitamin Daily Orally Once a day 1 tablet 24h Active Magnesium 500 MG Orally Once a day 1 tablet with a meal 24h Dec, Active Pantoprazole Sodium 20 MG TAKE 1 TABLET BY MOUTH ONCE DAILY 30 Active Mucinex 600 MG Orally every 12 hrs 1 tablet as needed 12h Active HydrOXYzine HCl 10 MG Orally one time a day prn anxiety 1 tablet 30 days Active Estradiol 2 MG Orally Once a day 1 tablet 24h Active Vagifem 10 MCG Vaginal Two times a Week 1 tablet Active Qnasl 80 MCG/ACT Nasally Once a day 2 puffs in each nostril 24h Jun, 30 day(s) Active Probiotic Acidophilus Active RESULTS No Results PROCEDURES No Known [...]
--- OUTSIDE RECORDS SUMMARY | 2017-08-27 08:47 | XMS REPORT ---
Author Author Magen KEERTHI [facility] Address [address] [place] [address] Care Team Providers Care Travel Registered Nurse Pacu Name Role Phone Magen KEERTHI Unavailable PROBLEMS Type Condition ICD9-CM Code QCX67-CB Code Onset Dates Condition Status SNOMED Code Problem Gastritis without bleeding, unspecified chronicity, unspecified gastritis type K29.70 Active 456783400 Problem Hearing loss, unspecified laterality H91.90 Active 61125352 Problem Bipolar 1 disorder, mixed F31.60 Active 29499614 Problem Hematuria, unspecified type R31.9 Active 28992409 Problem Sensorineural hearing loss (SNHL) of both ears H90.3 Active 188171600 Problem Generalized anxiety disorder F41.1 Active 72456050 Problem Allergic rhinitis J30.9 Active 95512429 Problem Ataxia R27.0 Active 27990787 Problem History of colon polyps Z86.010 Active 778054432 Problem Hot flashes due to menopause N95.1 Active 214258715 Problem Night sweats R61 Active 78977696 Problem Bruising, spontaneous R23.3 Active 093906445 Problem Ab[address] CT scan, head R93.0 Active 434655486 Problem Hormone replacement therapy Z79.890 Active 701603539 Problem Hypertension I10 Active 42331937 Problem Other chronic pain G89.29 Active 76662137 Problem Arthralgia of hip, unspecified laterality M25.559 Active 87651778 Problem Hyperlipidemia, unspecified hyperlipidemia type E78.5 Active 69266503 Problem Major depressive disorder, recurrent episode, moderate F33.1 Active 531201265 Problem Grief F43.20 Active 65569894 ALLERGIES Substance Reaction Event Type Date Status Morphine Sulfate Unknown Drug Allergy May, Active Iodine Unknown Drug Allergy May, Active Cipro burning stomach Drug Allergy May, Active Lyrica 75 Mg Capsule Unknown Non Drug Allergy May, Active SOCIAL HISTORY No smoking Hx information available PLAN OF CARE Activity Details Follow Up 2 Months Reason: VITAL SIGNS Height 64 in 2016-06-06 Weight 140.4 lbs 2016-06-06 Heart Rate 112 bpm 2016-06-06 Respiratory Rate 20 2016-06-06 BMI 24.10 kg/m2 2016-06-06 Blood pressure systolic 101 mmHg 2016-06-06 Blood pressure diastolic 64 mmHg 2016-06-06 MEDICATIONS Medication Instructions Dosage Frequency Start Date End Date Duration Status Q90-[place] 1 MG Active Fluticasone Propionate 50 MCG/ACT USE 1 SPRAY IN EACH NOSTRIL TWICE DAILY 30 30 Active Calcium 500 MG Orally Twice a day 1 tablet with meals 12h Active Flexeril 10 mg by oral route 2 times a day 1 tablet 12h 18 Aug, 2014 Active Diazepam 2 MG Orally Four times a day 1 tablet as needed 6h Active Multi Vitamin Daily Orally Once a day 1 tablet 24h Active Acidophilus - Orally Once a day as directed 24h Dec, Active Depakote ER 500 MG Orally at bedtime 2 tabs Feb, Active Ibuprofen 200 MG Orally every 6 hrs 1 tablet as needed 6h Active HydrOXYzine HCl 10 mg Orally 3 times a day PRN 1 tablet Active Cyclobenzaprine HCl 10 MG TAKE ONE TABLET BY MOUTH TWICE DAILY NEEDED 30 Active Magnesium 500 MG Orally Once a day 1 tablet with a meal 24h Dec, Active Protonix 40 MG Orally Once a day 1 tablet 24h Active Mucinex 600 MG Orally every 12 hrs 1 tablet as needed 12h Active Melatonin 3 MG 1 Tablet by Oral route 1 time per day HS Aug, Active Pantoprazole Sodium 20 mg Orally Once a day 1 tablet 24h 30 Active Zyrtec Allergy 10 mg Orally Once a day 1 tablet 24h Dec, Active Vitamin D3 2000 UNIT Orally Once a day as directed 24h Dec, Active Probiotic Acidophilus Active Estradiol 2 MG Orally Once a day 1 tablet 24h Active Vagifem 10 MCG Vaginal Two times a Week 1 tablet Active Fetzima 120 MG Orally Once a day TAKE 1 CAPSULE BY MOUTH DAILY 24h 30 days Active Nexium 40 mg Orally Once a day 1 capsule 24h Mar, Active RESULTS No Results PROCEDURES Procedure Date Ordered Related Diagnosis Body Site Office Visit, Est Pt., Level 3 Jun 06, 2016 IMMUNIZATIONS No Known Immunizations
--- OUTSIDE RECORDS SUMMARY | 2017-08-27 08:47 | XMS REPORT ---
Author Author JOHN MORTON [facility] Address [address] [place] [address] Care Team Providers Care Lead Custodian Name Role Phone JOHN MORTON Unavailable PROBLEMS Type Condition ICD9-CM Code FXW07-EX Code Onset Dates Condition Status SNOMED Code Problem Ataxia R27.0 Active 18598697 Problem Allergic rhinitis J30.9 Active 78431115 Problem Hearing loss, unspecified laterality H91.90 Active 23862973 Problem Imbalance R26.89 Active 497665514 [address] scan, head R93.0 Active 252721182 Problem Hammer toe of right foot M20.41 Active 516618627 Problem Hormone replacement therapy Z79.890 Active 324815023 Problem History of colon polyps Z86.010 Active 618524055 Problem Hot flashes due to menopause N95.1 Active 421010349 Problem Hematuria, unspecified type R31.9 Active 76464879 Problem Generalized anxiety disorder F41.1 Active 99746231 Problem Night sweats R61 Active 25937364 Problem Arthralgia of hip, unspecified laterality M25.559 Active 87376540 Problem Sensorineural hearing loss (SNHL) of both ears H90.3 Active 550055699 Problem Bruising, spontaneous R23.3 Active 044365858 Problem Hyperlipidemia, unspecified hyperlipidemia type E78.5 Active 38059259 Problem Grief F43.20 Active 68722742 Problem Hypertension I10 Active 81841304 Problem Gastritis without bleeding, unspecified chronicity, unspecified gastritis type K29.70 Active 285645402 Problem Other chronic pain G89.29 Active 35431005 Problem Bipolar 1 disorder, mixed F31.60 Active 27679688 ALLERGIES No Information SOCIAL HISTORY Never Assessed PLAN OF CARE Activity Details Follow Up 1 Week Reason:BH F/U VITAL SIGNS MEDICATIONS Unknown Medications RESULTS No Results PROCEDURES Procedure Date Ordered Result Body Site Psychotherapy, patient &/family, 45 minutes, established patient November 15, 2016 IMMUNIZATIONS No Known Immunizations MEDICAL (GENERAL) [...]
--- OUTSIDE RECORDS SUMMARY | 2017-08-27 08:48 | XMS REPORT ---
Author Author NAHOMY HANCOCK [facility] Address [address] [place] [address] Care Team Providers Care Nursing Home Manager Name Role Phone NAHOMY HANCOCK Unavailable PROBLEMS Type Condition ICD9-CM Code ZXB11-EC Code Onset Dates Condition Status SNOMED Code Problem Gastritis without bleeding, unspecified chronicity, unspecified gastritis type K29.70 Active 570822499 Problem Ataxia R27.0 Active 05583523 Problem Bipolar 1 disorder, mixed F31.60 Active 11584435 Problem Hematuria, unspecified type R31.9 Active 78853430 Problem Hormone replacement therapy Z79.890 Active 428357300 Problem Generalized anxiety disorder F41.1 Active 30731619 Problem Allergic rhinitis J30.9 Active 04279225 Problem Hearing loss, unspecified laterality H91.90 Active 20554147 Problem History of colon polyps Z86.010 Active 645966128 Problem Hot flashes due to menopause N95.1 Active 230261970 Problem Bruising, spontaneous R23.3 Active 759485522 Problem Night sweats R61 Active 99354015 Problem Abnormal CT scan, head R93.0 Active 211514084 Problem Sensorineural hearing loss (SNHL) of both ears H90.3 Active 176292914 Problem Hypertension I10 Active 92489845 Problem Other chronic pain G89.29 Active 10794872 Problem Arthralgia of hip, unspecified laterality M25.559 Active 85476604 Problem Hyperlipidemia, unspecified hyperlipidemia type E78.5 Active 92654472 Problem Major depressive disorder, recurrent episode, moderate F33.1 Active 880003624 Problem Grief F43.20 Active 61918143 ALLERGIES Unknown Allergies SOCIAL HISTORY No smoking Hx information available PLAN OF CARE VITAL SIGNS MEDICATIONS Medication Instructions Dosage Frequency Start Date End Date Duration Status Qnasl 80 MCG/ACT Nasally Once a day 2 puffs in each nostril 24h 16 Jun, 2016 30 day(s) Active RESULTS No Results PROCEDURES No Known procedures IMMUNIZATIONS No Known Immunizations
--- OUTSIDE RECORDS SUMMARY | 2017-08-27 08:53 | XMS REPORT | Continuity of Care Document ---
Author Author [facility] Address Unknown Phone Unavailable Allergies Active Description Code Type Severity Reaction Onset Reported/Identified Relationship to Patient Clinical Status Yes iodine Drug Allergy N/A N/A 01/06/2010 Yes morphine Drug Allergy N/A N/A 01/06/2010 Yes iodine Drug Allergy 01/06/2010 Yes morphine Drug Allergy 01/06/2010 Yes Lyrica 75 mg capsule Drug Allergy N/A N/A 09/16/2013 Yes iodine [id number] Drug Allergy Severe HIVES 11/03/2016 Yes morphine [id number] Drug Allergy Severe HIVES 11/03/2016 Medications There is no data. Problems Date Dx Coded Attending Type Code Diagnosis Diagnosed By 05/17/1519 BERENICE HOLLIDAY, SARAH Masterson Ot M48.02 SPINAL STENOSIS, CERVICAL REGION 05/17/1519 SARAH NG MD, Ot M79.1 MYALGIA 05/17/1519 SARAH NG MD, Ot Z98.1 ARTHRODESIS STATUS 01/06/2010 311 DEPRESSIVE DISORDER NOS 01/06/2010 627.9 MENOPAUSAL AND POSTMENOPAUSAL DISORDER UNSPECIFIED 01/06/2010 995.3 ALLERGY UNSPECIFIED NOT ELSEWHERE CLASSIFIED 01/06/2010 V17.49 FAMILY HISTORY OF CERTAIN CHRONIC DISABLING DISEASES, OTHER CARDIOVASCULAR DISEASES 01/06/2010 311 DEPRESSIVE DISORDER NOS 01/06/2010 627.9 MENOPAUSAL AND POSTMENOPAUSAL DISORDER UNSPECIFIED 01/06/2010 995.3 ALLERGY UNSPECIFIED NOT ELSEWHERE CLASSIFIED 01/06/2010 V17.49 FAMILY HISTORY OF CERTAIN CHRONIC DISABLING DISEASES, OTHER CARDIOVASCULAR DISEASES 01/06/2010 311 DEPRESSIVE DISORDER NOS 01/06/2010 627.9 MENOPAUSAL AND POSTMENOPAUSAL DISORDER UNSPECIFIED 01/06/2010 995.3 ALLERGY UNSPECIFIED NOT ELSEWHERE CLASSIFIED 01/06/2010 V17.49 FAMILY HISTORY OF CERTAIN CHRONIC DISABLING DISEASES, OTHER CARDIOVASCULAR DISEASES 01/06/2010 DAVEY STEPHENSON MD 311 DEPRESSIVE DISORDER NOS 01/06/2010 DAVEY STEPHENSON MD7.[email or web address] MENOPAUSAL AND POSTMENOPAUSAL DISORDER UNSPECIFIED 01/06/2010 DAVEY STEPHENSON MD 995.3 ALLERGY UNSPECIFIED NOT ELSEWHERE CLASSIFIED 01/06/2010 DAVEY STEPHENSON MD V17.49 FAMILY HISTORY OF CERTAIN CHRONIC DISABLING DISEASES, OTHER CARDIOVASCULAR DISEASES 01/06/2010 BEVERLEY VALLE ROEL R 311 DEPRESSIVE DISORDER NOS 01/06/2010 BEVERLEY PROCESS IMPROVEMENT ENGINEER, ROEL R 627.9 MENOPAUSAL AND POSTMENOPAUSAL DISORDER UNSPECIFIED 01/06/2010 BEVERLEY VALLE ROEL R 995.3 ALLERGY UNSPECIFIED NOT ELSEWHERE CLASSIFIED 01/06/2010 BEVERLEY VALLE ROEL R V17.49 FAMILY HISTORY OF CERTAIN CHRONIC DISABLING DISEASES, OTHER CARDIOVASCULAR DISEASES 01/06/2010 DAVEY STEPHENSON MD 311 DEPRESSIVE DISORDER NOS 01/06/2010 DAVEY STEPHENSON MD.9 MENOPAUSAL AND POSTMENOPAUSAL DISORDER UNSPECIFIED 01/06/2010 DAVEY STEPHENSON MD 995.3 ALLERGY UNSPECIFIED NOT ELSEWHERE CLASSIFIED 01/06/2010 DAVEY STEPHENSON MD V17.49 FAMILY HISTORY OF CERTAIN CHRONIC DISABLING DISEASES, OTHER CARDIOVASCULAR DISEASES 01/06/2010 ISAACS DO OLEG K 311 DEPRESSIVE DISORDER NOS 01/06/2010 ISAACS DO OLEG K 627.9 MENOPAUSAL AND POSTMENOPAUSAL DISORDER UNSPECIFIED 01/06/2010 ISAACS DO OLEG K 995.3 ALLERGY UNSPECIFIED NOT ELSEWHERE CLASSIFIED 01/06/2010 ISAACS DO OLEG K V17.49 FAMILY HISTORY OF CERTAIN CHRONIC DISABLING DISEASES, OTHER CARDIOVASCULAR DISEASES 01/06/2010 DAVEY STEPHENSON MD 311 DEPRESSIVE DISORDER NOS 01/06/2010 DAVEY STEPHENSON MD7.9 MENOPAUSAL AND POSTMENOPAUSAL DISORDER UNSPECIFIED 01/06/2010 DAVEY STEPHENSON MD 995.3 ALLERGY UNSPECIFIED NOT ELSEWHERE CLASSIFIED 01/06/2010 DAVEY STEPHENSON MD V17.49 FAMILY HISTORY OF CERTAIN CHRONIC DISABLING DISEASES, OTHER CARDIOVASCULAR DISEASES 01/06/2010 KATELYN HENRIQUEZ APRN 311 DEPRESSIVE DISORDER NOS 01/06/2010 KATELYN HENRIQUEZ APRN 627.9 MENOPAUSAL AND POSTMENOPAUSAL DISORDER UNSPECIFIED 01/06/2010 KATELYN HENRIQUEZ APRN 995.3 ALLERGY UNSPECIFIED NOT ELSEWHERE CLASSIFIED 01/06/2010 KATELYN HENRIQUEZ APRN V17.49 FAMILY HISTORY OF CERTAIN CHRONIC DISABLING DISEASES, OTHER CARDIOVASCULAR DISEASES 01/06/2010 EVAN CANO MD 311 DEPRESSIVE DISORDER NOS 01/06/2010 EVAN CANO MD 627.9 MENOPAUSAL AND POSTMENOPAUSAL DISORDER UNSPECIFIED 01/06/2010 EVAN CANO MD 995.3 ALLERGY UNSPECIFIED NOT ELSEWHERE CLASSIFIED 01/06/2010 EVAN CANO MD V17.49 FAMILY HISTORY OF CERTAIN CHRONIC DISABLING DISEASES, OTHER CARDIOVASCULAR DISEASES 01/06/2010 KARISSA VALLE NAHOMY S 311 DEPRESSIVE DISORDER NOS 01/06/2010 KARISSA VALLE NAHOMY S 627.9 MENOPAUSAL AND POSTMENOPAUSAL DISORDER UNSPECIFIED 01/06/2010 KRISTYN HANCOCK APRNNDA S 995.3 ALLERGY UNSPECIFIED NOT ELSEWHERE CLASSIFIED 01/06/2010 KRISTYN HANCOCK APRNNDA S V17.49 FAMILY HISTORY OF CERTAIN CHRONIC DISABLING DISEASES, OTHER CARDIOVASCULAR DISEASES 01/06/2010 EVAN CANO MD N 311 DEPRESSIVE DISORDER NOS 01/06/2010 EVAN CANO MD 627.9 MENOPAUSAL AND POSTMENOPAUSAL DISORDER UNSPECIFIED 01/06/2010 EVAN CANO MD 995.3 ALLERGY UNSPECIFIED NOT ELSEWHERE CLASSIFIED 01/06/2010 EVAN CANO MD N V17.49 FAMILY HISTORY OF CERTAIN CHRONIC DISABLING DISEASES, OTHER CARDIOVASCULAR DISEASES 01/06/2010 MONICA PROCESS IMPROVEMENT ENGINEER, MARISABEL A 311 DEPRESSIVE DISORDER NOS 01/06/2010 MONICA PROCESS IMPROVEMENT ENGINEER, MARISABEL A 627.9 MENOPAUSAL AND POSTMENOPAUSAL DISORDER UNSPECIFIED 01/06/2010 MONICA TORI, MARISABEL A 995.3 ALLERGY UNSPECIFIED NOT ELSEWHERE CLASSIFIED 01/06/2010 MONICA PROCESS IMPROVEMENT ENGINEER, MARISABEL A V17.49 FAMILY HISTORY OF CERTAIN CHRONIC DISABLING DISEASES, OTHER CARDIOVASCULAR DISEASES 01/06/2010 KARISSA VALLE NAHOMY S 311 DEPRESSIVE DISORDER NOS 01/06/2010 KARISSA VALLE, NAHOMY S 627.9 MENOPAUSAL AND POSTMENOPAUSAL DISORDER UNSPECIFIED 01/06/2010 KARISSA VALLE, NAHOMY S 995.3 ALLERGY UNSPECIFIED NOT ELSEWHERE CLASSIFIED 01/06/2010 KARISSA VALLE, NAHOMY S V17.49 FAMILY HISTORY OF CERTAIN CHRONIC DISABLING DISEASES, OTHER CARDIOVASCULAR DISEASES 01/06/2010 KATELYN HENRIQUEZ APRN 311 DEPRESSIVE DISORDER NOS 01/06/2010 KATELYN HENRIQUEZ APRN 627.9 MENOPAUSAL AND POSTMENOPAUSAL DISORDER UNSPECIFIED 01/06/2010 KATELYN HENRIQUEZ APRN 995.3 ALLERGY UNSPECIFIED NOT ELSEWHERE CLASSIFIED 01/06/2010 KATELYN HENRIQUEZ APRN V17.49 FAMILY HISTORY OF CERTAIN CHRONIC DISABLING DISEASES, OTHER CARDIOVASCULAR DISEASES 01/06/2010 DAVEY STEPHENSON MD 311 DEPRESSIVE DISORDER NOS 01/06/2010 DAVEY STEPHENSON MD 627.9 MENOPAUSAL AND POSTMENOPAUSAL DISORDER UNSPECIFIED 01/06/2010 DAVEY STEPHENSON MD 995.3 ALLERGY UNSPECIFIED NOT ELSEWHERE CLASSIFIED 01/06/2010 DAVEY STEPHENSON MD V17.49 FAMILY HISTORY OF CERTAIN CHRONIC DISABLING DISEASES, OTHER CARDIOVASCULAR DISEASES 01/06/2010 MARIALUISA DPM, ORLY 311 DEPRESSIVE DISORDER NOS 01/06/2010 MARIALUISA DPM, ORLY 627.9 MENOPAUSAL AND POSTMENOPAUSAL DISORDER UNSPECIFIED 01/06/2010 MARIAULISA DPM, ORLY 995.3 ALLERGY UNSPECIFIED NOT ELSEWHERE CLASSIFIED 01/06/2010 MARIALUISA DPM, ORLY V17.49 FAMILY HISTORY OF CERTAIN CHRONIC DISABLING DISEASES, OTHER CARDIOVASCULAR DISEASES 01/06/2010 KARISSA VALLE NAHOMY S 311 DEPRESSIVE DISORDER NOS 01/06/2010 KARISSA PROCESS IMPROVEMENT ENGINEER, NAHOMY S 627.9 MENOPAUSAL AND POSTMENOPAUSAL DISORDER UNSPECIFIED 01/06/2010 KARISSA PROCESS IMPROVEMENT ENGINEER, NAHOMY S 995.3 ALLERGY UNSPECIFIED NOT ELSEWHERE CLASSIFIED 01/06/2010 KARISSA BRIZUELAN NAHOMY S V17.49 FAMILY HISTORY OF CERTAIN CHRONIC DISABLING DISEASES, OTHER CARDIOVASCULAR DISEASES 01/06/2010 MARIALUISA DPM, ORLY 311 DEPRESSIVE DISORDER NOS 01/06/2010 MARIALUISA DPM, ORLY 627.9 MENOPAUSAL AND POSTMENOPAUSAL DISORDER UNSPECIFIED 01/06/2010 MARIALUISA DPM, ORLY 995.3 ALLERGY UNSPECIFIED NOT ELSEWHERE CLASSIFIED 01/06/2010 MARIALUISA DPM, ORLY V17.49 FAMILY HISTORY OF CERTAIN CHRONIC DISABLING DISEASES, OTHER CARDIOVASCULAR DISEASES 01/06/2010 KARISSA PROCESS IMPROVEMENT ENGINEER NAHOMY S 311 DEPRESSIVE DISORDER NOS 01/06/2010 KARISSA PROCESS IMPROVEMENT ENGINEER, NAHOMY S 627.9 MENOPAUSAL AND POSTMENOPAUSAL DISORDER UNSPECIFIED 01/06/2010 KARISSA PROCESS IMPROVEMENT ENGINEER, NAHOMY S 995.3 ALLERGY UNSPECIFIED NOT ELSEWHERE CLASSIFIED 01/06/2010 KARISSA VALLE NAHOMY S V17.49 FAMILY HISTORY OF CERTAIN CHRONIC DISABLING DISEASES, OTHER CARDIOVASCULAR DISEASES 01/06/2010 KARISSA VALLE NAHOMY S 311 DEPRESSIVE DISORDER NOS 01/06/2010 KARISSA PROCESS IMPROVEMENT ENGINEER, NAHOMY S 627.9 MENOPAUSAL AND POSTMENOPAUSAL DISORDER UNSPECIFIED 01/06/2010 KARISSA PROCESS IMPROVEMENT ENGINEER, NAHOMY S 995.3 ALLERGY UNSPECIFIED NOT ELSEWHERE CLASSIFIED 01/06/2010 KARISSA PROCESS IMPROVEMENT ENGINEER NAHOMY S V17.49 FAMILY HISTORY OF CERTAIN CHRONIC DISABLING DISEASES, OTHER CARDIOVASCULAR DISEASES 01/06/2010 KARISSA PROCESS IMPROVEMENT ENGINEER, NAHOMY S 311 DEPRESSIVE DISORDER NOS 01/06/2010 KARISSA PROCESS IMPROVEMENT ENGINEER, NAHOMY S 627.9 MENOPAUSAL AND POSTMENOPAUSAL DISORDER UNSPECIFIED 01/06/2010 KARISSA PROCESS IMPROVEMENT ENGINEER, NAHOMY S 995.3 ALLERGY UNSPECIFIED NOT ELSEWHERE CLASSIFIED 01/06/2010 KARISSA BRIZUELAN, NAHOMY S V17.49 FAMILY HISTORY OF CERTAIN CHRONIC DISABLING DISEASES, OTHER CARDIOVASCULAR DISEASES 03/21/2010 300.00 ANXIETY UNSPEC 03/21/2010 V58.69 MEDICATION HIGH RISK 03/21/2010 300.00 ANXIETY UNSPEC 03/21/2010 V58.69 MEDICATION HIGH RISK 03/21/2010 300.00 ANXIETY UNSPEC 03/21/2010 V58.69 MEDICATION HIGH RISK 03/21/2010 DAVEY STEPHENSON MD 300.00 ANXIETY UNSPEC 03/21/2010 DAVEY STEPHENSON MD V58.69 MEDICATION HIGH RISK 03/21/2010 ROEL LOWERY APRN R 300.00 ANXIETY UNSPEC 03/21/2010 ROEL LOWERY APRN R V58.69 MEDICATION HIGH RISK 03/21/2010 DAVEY STEPHENSON MD 300.00 ANXIETY UNSPEC 03/21/2010 DAVEY STEPHENSON MD V58.69 MEDICATION HIGH RISK 03/21/2010 ISAACS DO, OLEG K 300.00 ANXIETY UNSPEC 03/21/2010 ISAACS DO, OLEG K V58.69 MEDICATION HIGH RISK 03/21/2010 DAVEY STEPHENSON MD 300.00 ANXIETY UNSPEC 03/21/2010 DAVEY STEPHENSON MD V58.69 MEDICATION HIGH RISK 03/21/2010 KATELYN HENRIQUEZ APRN 300.00 ANXIETY UNSPEC 03/21/2010 KATELYN HENRIQUEZ APRN V58.69 MEDICATION HIGH RISK 03/21/2010 EVAN CANO MD 300.00 ANXIETY UNSPEC 03/21/2010 JEROME MD, EVAN N V58.69 MEDICATION HIGH RISK 03/21/2010 KARISSA VALLE, NAHOMY S 300.00 ANXIETY UNSPEC 03/21/2010 KARISSA VALLE, NAHOMY S V58.69 MEDICATION HIGH RISK 03/21/2010 EVAN CANO MD N 300.00 ANXIETY UNSPEC 03/21/2010 EVAN CANO MD V58.69 MEDICATION HIGH RISK 03/21/2010 MONICA VALLE, MARISABEL A 300.00 ANXIETY UNSPEC 03/21/2010 MONICA VALLE, MARISABEL A V58.69 MEDICATION HIGH RISK 03/21/2010 KARISSA VALLE, NAHOMY S 300.00 ANXIETY UNSPEC 03/21/2010 KARISSA VALLE, NAHOMY S V58.69 MEDICATION HIGH RISK 03/21/2010 KATELYN HENRIQUEZ APRN 300.00 ANXIETY UNSPEC 03/21/2010 KATELYN HENRIQUEZ APRN V58.69 MEDICATION HIGH RISK 03/21/2010 DAVEY STEPHENSON MD 300.00 ANXIETY UNSPEC 03/21/2010 DAVEY STEPHENSON MD V58.69 MEDICATION HIGH RISK 03/21/2010 MARIALUISA DPM, ORLY 300.00 ANXIETY UNSPEC 03/21/2010 MARIALUISA DPM, ORLY V58.69 MEDICATION HIGH RISK 03/21/2010 KARISSA VALLE, NAHOMY S 300.00 ANXIETY UNSPEC 03/21/2010 KARISSA VALLE, NAHOMY S V58.69 MEDICATION HIGH RISK 03/21/2010 MARIALUISA DPM, ORLY 300.00 ANXIETY UNSPEC 03/21/2010 MARIALUISA DPM, ORLY V58.69 MEDICATION HIGH RISK 03/21/2010 KARISSA BRIZUELAN, NAHOMY S 300.00 ANXIETY UNSPEC 03/21/2010 KARISSA BRIZUELAN, NAHOMY S V58.69 MEDICATION HIGH RISK 03/21/2010 KARISSA PROCESS IMPROVEMENT ENGINEER, NAHOMY S 300.00 ANXIETY UNSPEC 03/21/2010 KARISSA BRIZUELAN, NAHOMY S V58.69 MEDICATION HIGH RISK 03/21/2010 KARISSA PROCESS IMPROVEMENT ENGINEER, NAHOMY S 300.00 ANXIETY UNSPEC 03/21/2010 KARISSA BRIZUELAN, NAHOMY S V58.69 MEDICATION HIGH RISK 04/01/2010 110.1 ONYCHOMYCOSIS 04/01/2010 110.1 ONYCHOMYCOSIS 04/01/2010 110.1 ONYCHOMYCOSIS 04/01/2010 DAVEY STEPHENSON MD 110.1 ONYCHOMYCOSIS 04/01/2010 ROEL LOWERY APRN R 110.1 ONYCHOMYCOSIS 04/01/2010 DAVEY STEPHENSON MD 110.1 ONYCHOMYCOSIS 04/01/2010 OLEG ISAACS DO K 110.1 ONYCHOMYCOSIS 04/01/2010 DAVEY STEPHENSON MD 110.1 ONYCHOMYCOSIS 04/01/2010 KATELYN HENRIQUEZ APRN 110.1 ONYCHOMYCOSIS 04/01/2010 EVAN CANO MD 110.1 ONYCHOMYCOSIS 04/01/2010 KRISTYN HANCOCK APRNNDA S 110.1 ONYCHOMYCOSIS 04/01/2010 EVAN CANO MD 110.1 ONYCHOMYCOSIS 04/01/2010 MONICA VALLE MARISABEL A 110.1 ONYCHOMYCOSIS 04/01/2010 KRISTYN HANCOCK APRNNDA S 110.1 ONYCHOMYCOSIS 04/01/2010 KATELYN HENRIQUEZ APRN T 110.1 ONYCHOMYCOSIS 04/01/2010 DAVEY STEPHENSON MD 110.1 ONYCHOMYCOSIS 04/01/2010 MARIALUISA DPM, ORLY 110.1 ONYCHOMYCOSIS 04/01/2010 KARISSA VALLE NAHOMY S 110.1 ONYCHOMYCOSIS 04/01/2010 MARIALUISA DPM, ORLY 110.1 ONYCHOMYCOSIS 04/01/2010 KARISSA VALLE, NAHOMY S 110.1 ONYCHOMYCOSIS 04/01/2010 KARISSA VALLE NAHOMY S 110.1 ONYCHOMYCOSIS 04/01/2010 KARISSA VALLE, NAHOMY S 110.1 ONYCHOMYCOSIS 07/18/2010 783.21 LOSS OF WEIGHT 07/18/2010 783.21 LOSS OF WEIGHT 07/18/2010 783.21 LOSS OF WEIGHT 07/18/2010 DAVEY STEPHENSON MD 783.21 LOSS OF WEIGHT 07/18/2010 ROEL LOWERY APRN 783.21 LOSS OF WEIGHT 07/18/2010 DAVEY STEPHENSON MD 783.21 LOSS OF WEIGHT 07/18/2010 OLEG ISAACS DO K 783.21 LOSS OF WEIGHT 07/18/2010 DAVEY STEPHENSON MD 783.21 LOSS OF WEIGHT 07/18/2010 KATELYN HENRIQUEZ APRN T 783.21 LOSS OF WEIGHT 07/18/2010 EVAN CANO MD N 783.21 LOSS OF WEIGHT 07/18/2010 KARISSA VALLE, NAHOMY S 783.21 LOSS OF WEIGHT 07/18/2010 EVAN CANO MD N 783.21 LOSS OF WEIGHT 07/18/2010 MONICANataliya VALLE MARISABEL A 783.21 LOSS OF WEIGHT 07/18/2010 KARISSACHRISTOPHER VALLE, NAHOMY S 783.21 LOSS OF WEIGHT 07/18/2010 KATELYN HENRIQUEZ APRN 783.21 LOSS OF WEIGHT 07/18/2010 DAVEY STEPHENSON MD 783.21 LOSS OF WEIGHT 07/18/2010 MARIALUISA DPM, ORLY 783.21 LOSS OF WEIGHT 07/18/2010 KARISSA PROCESS IMPROVEMENT ENGINEER, NAHOMY S 783.21 LOSS OF WEIGHT 07/18/2010 MARIALUISA DPM, ORLY 783.21 LOSS OF WEIGHT 07/18/2010 KARISSA PROCESS IMPROVEMENT ENGINEER, NAHOMY S 783.21 LOSS OF WEIGHT 07/18/2010 KARISSA PROCESS IMPROVEMENT ENGINEER, NAHOMY S 783.21 LOSS OF WEIGHT 07/18/2010 KARISSA TORI, NAHOMY S 783.21 LOSS OF WEIGHT 11/24/2010 616.10 Vaginitis Vulvovaginitis Unspecified 11/24/2010 616.10 Vaginitis Vulvovaginitis Unspecified 11/24/2010 616.10 Vaginitis Vulvovaginitis Unspecified 11/24/2010 DAVEY STEPHENSON MD 616.10 Vaginitis Vulvovaginitis Unspecified 11/24/2010 ROEL LOWERY APRN 616.10 Vaginitis Vulvovaginitis Unspecified 11/24/2010 DAVEY STEPHENSON MD 616.10 Vaginitis Vulvovaginitis Unspecified 11/24/2010 OLEG ISAACS DO 616.10 Vaginitis Vulvovaginitis Unspecified 11/24/2010 DAVEY STEPHENSON MD 616.10 Vaginitis Vulvovaginitis Unspecified 11/24/2010 FLORENCE PROCESS IMPROVEMENT ENGINEER, KATELYN T 616.10 Vaginitis Vulvovaginitis Unspecified 11/24/2010 JEROME HOLLIDAY, EVAN N 616.10 Vaginitis Vulvovaginitis Unspecified 11/24/2010 KARISSA PROCESS IMPROVEMENT ENGINEER, NAHOMY S 616.10 Vaginitis Vulvovaginitis Unspecified 11/24/2010 JEROME HOLLIDAY, EVAN N 616.10 Vaginitis Vulvovaginitis Unspecified 11/24/2010 MONICA BRIZUELAN, MARISABEL A 616.10 Vaginitis Vulvovaginitis Unspecified 11/24/2010 KARISSA PROCESS IMPROVEMENT ENGINEER, NAHOMY S 616.10 Vaginitis Vulvovaginitis Unspecified 11/24/2010 KATELYN HENRIQUEZ APRN T 616.10 Vaginitis Vulvovaginitis Unspecified 11/24/2010 DAVEY STEPHENSON MD 616.10 Vaginitis Vulvovaginitis Unspecified 11/24/2010 MARIALUISA DPM, ORLY 616.10 Vaginitis Vulvovaginitis Unspecified 11/24/2010 KARISSA PROCESS IMPROVEMENT ENGINEER, NAHOMY S 616.10 Vaginitis Vulvovaginitis Unspecified 11/24/2010 MARIALUISA DPM, ORLY 616.10 Vaginitis Vulvovaginitis Unspecified 11/24/2010 KARISSA PROCESS IMPROVEMENT ENGINEER, NAHOMY S 616.10 Vaginitis Vulvovaginitis Unspecified 11/24/2010 KARISSA PROCESS IMPROVEMENT ENGINEER, NAHOMY S 616.10 Vaginitis Vulvovaginitis Unspecified 11/24/2010 KARISSA PROCESS IMPROVEMENT ENGINEER, NAHOMY S 616.10 Vaginitis Vulvovaginitis Unspecified 12/01/2010 289.3 Lymphadenitis Unspecified Except Mesenteric 12/01/2010 289.3 Lymphadenitis Unspecified Except Mesenteric 12/01/2010 289.3 Lymphadenitis Unspecified Except Mesenteric 12/01/2010 DAVEY STEPHENSON MD 289.3 Lymphadenitis Unspecified Except Mesenteric 12/01/2010 ROEL LOWERY APRN 289.3 Lymphadenitis Unspecified Except Mesenteric 12/01/2010 DAVEY STEPHENSON MD 289.3 Lymphadenitis Unspecified Except Mesenteric 12/01/2010 OLEG ISAACS DO 289.3 Lymphadenitis Unspecified Except Mesenteric 12/01/2010 DAVEY STEPHENSON MD 289.3 Lymphadenitis Unspecified Except Mesenteric 12/01/2010 KATELYN HENRIQUEZ APRN 289.3 Lymphadenitis Unspecified Except Mesenteric 12/01/2010 EVAN CANO MD N 289.3 Lymphadenitis Unspecified Except Mesenteric 12/01/2010 KARISSA PROCESS IMPROVEMENT ENGINEER, NAHOMY S 289.3 Lymphadenitis Unspecified Except Mesenteric 12/01/2010 EVAN CAON MD N 289.3 Lymphadenitis Unspecified Except Mesenteric 12/01/2010 MONICA PROCESS IMPROVEMENT ENGINEER, MARISABEL A 289.3 Lymphadenitis Unspecified Except Mesenteric 12/01/2010 KARISSA PROCESS IMPROVEMENT ENGINEER, NAHOMY S 289.3 Lymphadenitis Unspecified Except Mesenteric 12/01/2010 KATELYN HENRIQUEZ APRN 289.3 Lymphadenitis Unspecified Except Mesenteric 12/01/2010 DAVEY STEPHENSON MD 289.3 Lymphadenitis Unspecified Except Mesenteric 12/01/2010 MARIALUISA DPM, ORLY 289.3 Lymphadenitis Unspecified Except Mesenteric 12/01/2010 KARISSA PROCESS IMPROVEMENT ENGINEER, NAHOMY S 289.3 Lymphadenitis Unspecified Except Mesenteric 12/01/2010 MARIALUISA DPM, ORLY 289.3 Lymphadenitis Unspecified Except Mesenteric 12/01/2010 KARISSA PROCESS IMPROVEMENT ENGINEER, NAHOMY S 289.3 Lymphadenitis Unspecified Except Mesenteric 12/01/2010 KARISSA PROCESS IMPROVEMENT ENGINEER, NAHOMY S 289.3 Lymphadenitis Unspecified Except Mesenteric 12/01/2010 KARISSA PROCESS IMPROVEMENT ENGINEER, NAHOMY S 289.3 Lymphadenitis Unspecified Except Mesenteric 01/06/2011 Ot 311 DEPRESSIVE DISORDER NEC 01/06/2011 Ot V62.84 SUICIDAL IDEATION 01/10/2011 618.00 Unspecified Prolapse Of Vaginal Peña 01/10/2011 618.00 Unspecified Prolapse Of Vaginal Peña 01/10/2011 618.00 Unspecified Prolapse Of Vaginal Peña 01/10/2011 DAVEY STEPHENSON MD 618.00 Unspecified Prolapse Of Vaginal Peña 01/10/2011 ROEL LOWERY APRN 618.00 Unspecified Prolapse Of Vaginal Peña 01/10/2011 DAVEY STEPHENSON MD 618.00 Unspecified Prolapse Of Vaginal Peña 01/10/2011 OLEG ISAACS DO 618.00 Unspecified Prolapse Of Vaginal Peña 01/10/2011 DAVEY STEPHENSON MD 618.00 Unspecified Prolapse Of Vaginal Peña 01/10/2011 KATELYN HENRIQUEZ APRN 618.00 Unspecified Prolapse Of Vaginal Peña 01/10/2011 EVAN CANO MD N 618.00 Unspecified Prolapse Of Vaginal Peña 01/10/2011 LIDA HANCOCK APRNA S 618.00 Unspecified Prolapse Of Vaginal Peña 01/10/2011 EVAN CANO MD N 618.00 Unspecified Prolapse Of Vaginal Peña 01/10/2011 MONICA VALLE MARISABEL A 618.00 Unspecified Prolapse Of Vaginal Peña 01/10/2011 KRISTYN HANCOCK APRNNDA S 618.00 Unspecified Prolapse Of Vaginal Peña 01/10/2011 KATELYN HENRIQUEZ APRN 618.00 Unspecified Prolapse Of Vaginal Peña 01/10/2011 DAVEY STEPHENSON MD 618.00 Unspecified Prolapse Of Vaginal Peña 01/10/2011 MARIALUISA DPM, ORLY 618.00 Unspecified Prolapse Of Vaginal Peña 01/10/2011 KRISTYN HANCOCK APRNNDA S 618.00 Unspecified Prolapse Of Vaginal Peña 01/10/2011 MARIALUISA DPM, ORLY 618.00 Unspecified Prolapse Of Vaginal Peña 01/10/2011 KARISSA VALLE NAHOMY S 618.00 Unspecified Prolapse Of Vaginal Peña 01/10/2011 KRISTYN HANCOCK APRNNDA S 618.00 Unspecified Prolapse Of Vaginal Peña 01/10/2011 KARISSA VALLE NAHOMY S 618.00 Unspecified Prolapse Of Vaginal Peña 01/19/2011 Ot 296.20 DEPRESS DISORDER-UNSPEC 01/19/2011 Ot 311 DEPRESSIVE DISORDER NEC 03/16/2011 564.1 IRRITABLE BOWEL SYNDROME 03/16/2011 564.1 IRRITABLE BOWEL SYNDROME 03/16/2011 564.1 IRRITABLE BOWEL SYNDROME 03/16/2011 DAVEY STEPHENSON MD 564.1 IRRITABLE BOWEL SYNDROME 03/16/2011 ROEL LOWERY APRN 564.1 IRRITABLE BOWEL SYNDROME 03/16/2011 DAVEY STEPHENSON MD 564.1 IRRITABLE BOWEL SYNDROME 03/16/2011 OLEG ISAACS DO 564.1 IRRITABLE BOWEL SYNDROME 03/16/2011 DAVEY STEPHENSON MD 564.1 IRRITABLE BOWEL SYNDROME 03/16/2011 FLORENCE PROCESS IMPROVEMENT ENGINEER, KATELYN T 564.1 IRRITABLE BOWEL SYNDROME 03/16/2011 JEROME HOLLIDAY, EVAN N 564.1 IRRITABLE BOWEL SYNDROME 03/16/2011 KARISSA VALLE, NAHOMY S 564.1 IRRITABLE BOWEL SYNDROME 03/16/2011 JEROME HOLLIDAY, EVAN N 564.1 IRRITABLE BOWEL SYNDROME 03/16/2011 MONICA VALLE, MARISABEL A 564.1 IRRITABLE BOWEL SYNDROME 03/16/2011 KARISSA VALLE, NAHOMY S 564.1 IRRITABLE BOWEL SYNDROME 03/16/2011 KATELYN HENRIQUEZ APRN T 564.1 IRRITABLE BOWEL SYNDROME 03/16/2011 DAVEY STEPHENSON MD 564.1 IRRITABLE BOWEL SYNDROME 03/16/2011 MARIALUISA DPM, ORLY 564.1 IRRITABLE BOWEL SYNDROME 03/16/2011 KARISSACHRISTOPHER VALLE, NAHOMY S 564.1 IRRITABLE BOWEL SYNDROME 03/16/2011 MARIALUISA DPM, ORLY 564.1 IRRITABLE BOWEL SYNDROME 03/16/2011 KARISSA VALLE, NAHOMY S 564.1 IRRITABLE BOWEL SYNDROME 03/16/2011 KARISSA VALLE, NAHOMY S 564.1 IRRITABLE BOWEL SYNDROME 03/16/2011 KARISSA VALLE, NAHOMY S 564.1 IRRITABLE BOWEL SYNDROME 11/08/2011 616.2 Cyst Of Bartholin's Gland 11/08/2011 623.5 Leukorrhea Not Specified As Infective 11/08/2011 616.2 Cyst Of [place]tholin's Gland 11/08/2011 623.5 Leukorrhea Not Specified As Infective 11/08/2011 616.2 Cyst Of [place]tholin's Gland 11/08/2011 623.5 Leukorrhea Not Specified As Infective 11/08/2011 DAVEY STEPHENSON MD 616.2 Cyst Of [place]tholin's Gland 11/08/2011 DAVEY STEPHENSON MD 623.5 Leukorrhea Not Specified As Infective 11/08/2011 ROEL LOWERY APRN R 616.2 Cyst Of Bartholin's Gland 11/08/2011 ROEL LOWERY APRN R 623.5 Leukorrhea Not Specified As Infective 11/08/2011 DAVEY STEPHENSON MD 616.2 Cyst Of Bartholin's Gland 11/08/2011 DAVEY STEPHENSON MD 623.5 Leukorrhea Not Specified As Infective 11/08/2011 ISAACS DO, OLEG K 616.2 Cyst Of [place]tholin's Gland 11/08/2011 ISAACS DO, OLEG K 623.5 Leukorrhea Not Specified As Infective 11/08/2011 DAVEY STEPHENSON MD 616.2 Cyst Of [place]tholin's Gland 11/08/2011 DAVEY STEPHENSON MD 623.5 Leukorrhea Not Specified As Infective 11/08/2011 KATELYN HENRIQUEZ APRN 616.2 Cyst Of [place]tholin's Gland 11/08/2011 KATELYN HENRIQUEZ APRN 623.5 Leukorrhea Not Specified As Infective 11/08/2011 EVAN CANO MD 616.2 Cyst Of [place]tholin's Gland 11/08/2011 EVAN CANO MD 623.5 Leukorrhea Not Specified As Infective 11/08/2011 NAHOMY HANCOCK APRN 616.2 Cyst Of [place]tholin's Gland 11/08/2011 NAHOMY HANCOCK APRN S 623.5 Leukorrhea Not Specified As Infective 11/08/2011 EVAN CANO MD N 616.2 Cyst Of [place]olin's Gland 11/08/2011 EVAN CANO MD 623.5 Leukorrhea Not Specified As Infective 11/08/2011 MARISABEL ANDERSON APRN A 616.2 Cyst Of Bartholin's Gland 11/08/2011 MARISABEL ANDERSON APRN A 623.5 Leukorrhea Not Specified As Infective 11/08/2011 NAHOMY HANCOCK APRN S 616.2 Cyst Of [place]tholin's Gland 11/08/2011 NAHOMY HANCOCK APRN S 623.5 Leukorrhea Not Specified As Infective 11/08/2011 KATELYN HENRIQUEZ APRN 616.2 Cyst Of [place]tholin's Gland 11/08/2011 KATELYN HENRIQUEZ APRN 623.5 Leukorrhea Not Specified As Infective 11/08/2011 DAVEY STEPHENSON MD 616.2 Cyst Of [place]tholin's Gland 11/08/2011 DAVEY STEPHENSON MD 623.5 Leukorrhea Not Specified As Infective 11/08/2011 ORLY ELAM DPM 616.2 Cyst Of [place]tholin's Gland 11/08/2011 MARIALUISA DPM, ORLY 623.5 Leukorrhea Not Specified As Infective 11/08/2011 KARISSA PROCESS IMPROVEMENT ENGINEER, NAHOMY S 616.2 Cyst Of [place]tholin's Gland 11/08/2011 KARISSA PROCESS IMPROVEMENT ENGINEER, NAHOMY S 623.5 Leukorrhea Not Specified As Infective 11/08/2011 MARIALUISA DPM, ORLY 616.2 Cyst Of [place]tholin's Gland 11/08/2011 MARIALUISA DPM, ORLY 623.5 Leukorrhea Not Specified As Infective 11/08/2011 KARISSA PROCESS IMPROVEMENT ENGINEER, NAHOMY S 616.2 Cyst Of [place]tholin's Gland 11/08/2011 KARISSA PROCESS IMPROVEMENT ENGINEER, NAHOMY S 623.5 Leukorrhea Not Specified As Infective 11/08/2011 KARISSA PROCESS IMPROVEMENT ENGINEER, NAHOMY S 616.2 Cyst Of Bartholin's Gland 11/08/2011 KARISSA PROCESS IMPROVEMENT ENGINEER, NAHOMY S 623.5 Leukorrhea Not Specified As Infective 11/08/2011 KARISSA PROCESS IMPROVEMENT ENGINEER, NAHOMY S 616.2 Cyst Of Bartholin's Gland 11/08/2011 KARISSA PROCESS IMPROVEMENT ENGINEER, NAHOMY S 623.5 Leukorrhea Not Specified As Infective 11/23/2011 272.4 OTHER AND UNSPECIFIED HYPERLIPIDEMIA 11/23/2011 272.4 OTHER AND UNSPECIFIED HYPERLIPIDEMIA 11/23/2011 272.4 OTHER AND UNSPECIFIED HYPERLIPIDEMIA 11/23/2011 DAVEY STEPHENSON MD 272.4 OTHER AND UNSPECIFIED HYPERLIPIDEMIA 11/23/2011 ROEL LOWERY APRN 272.4 OTHER AND UNSPECIFIED HYPERLIPIDEMIA 11/23/2011 DAVEY STEPHENSON MD 272.4 OTHER AND UNSPECIFIED HYPERLIPIDEMIA 11/23/2011 OLEG ISAACS DO K 272.4 OTHER AND UNSPECIFIED HYPERLIPIDEMIA 11/23/2011 DAVEY STEPHENSON MD 272.4 OTHER AND UNSPECIFIED HYPERLIPIDEMIA 11/23/2011 KATELYN HENRIQUEZ APRN 272.4 OTHER AND UNSPECIFIED HYPERLIPIDEMIA 11/23/2011 EVAN CANO MD 272.4 OTHER AND UNSPECIFIED HYPERLIPIDEMIA 11/23/2011 NAHOMY HANCOCK APRN S 272.4 OTHER AND UNSPECIFIED HYPERLIPIDEMIA 11/23/2011 EVAN CANO MD 272.4 OTHER AND UNSPECIFIED HYPERLIPIDEMIA 11/23/2011 MONICA PROCESS IMPROVEMENT ENGINEER, MARISABEL A 272.4 OTHER AND UNSPECIFIED HYPERLIPIDEMIA 11/23/2011 KARISSA PROCESS IMPROVEMENT ENGINEER, NAHOMY S 272.4 OTHER AND UNSPECIFIED HYPERLIPIDEMIA 11/23/2011 KATELYN HENRIQUEZ APRN 272.4 OTHER AND UNSPECIFIED HYPERLIPIDEMIA 11/23/2011 DAVEY STEPHENSON MD 272.4 OTHER AND UNSPECIFIED HYPERLIPIDEMIA 11/23/2011 MARIALUISA DPM, ORLY 272.4 OTHER AND UNSPECIFIED HYPERLIPIDEMIA 11/23/2011 KARISSA PROCESS IMPROVEMENT ENGINEER, NAHOMY S 272.4 OTHER AND UNSPECIFIED HYPERLIPIDEMIA 11/23/2011 MARIALUISA DPM, ORLY 272.4 OTHER AND UNSPECIFIED HYPERLIPIDEMIA 11/23/2011 KARISSA PROCESS IMPROVEMENT ENGINEER, NAHOMY S 272.4 OTHER AND UNSPECIFIED HYPERLIPIDEMIA 11/23/2011 KARISSA PROCESS IMPROVEMENT ENGINEER, NAHOMY S 272.4 OTHER AND UNSPECIFIED HYPERLIPIDEMIA 11/23/2011 KARISSA PROCESS IMPROVEMENT ENGINEER, NAHOMY S 272.4 OTHER AND UNSPECIFIED HYPERLIPIDEMIA 01/02/2012 477.0 ALLERGIC RHINITIS DUE TO POLLEN 01/02/2012 477.0 ALLERGIC RHINITIS DUE TO POLLEN 01/02/2012 477.0 ALLERGIC RHINITIS DUE TO POLLEN 01/02/2012 DAVEY TSEPHENSON MD 477.0 ALLERGIC RHINITIS DUE TO POLLEN 01/02/2012 LOWERY PROCESS IMPROVEMENT ENGINEER, ROEL R 477.0 ALLERGIC RHINITIS DUE TO POLLEN 01/02/2012 DAVEY STEPHENSON MD 477.0 ALLERGIC RHINITIS DUE TO POLLEN 01/02/2012 ISAACS OLEG AGUILA K 477.0 ALLERGIC RHINITIS DUE TO POLLEN 01/02/2012 DAVEY STEPHENSON MD 477.0 ALLERGIC RHINITIS DUE TO POLLEN 01/02/2012 KATELYN HENRIQUEZ APRN 477.0 ALLERGIC RHINITIS DUE TO POLLEN 01/02/2012 EVAN CANO MD 477.0 ALLERGIC RHINITIS DUE TO POLLEN 01/02/2012 KARISSA VALLE, NAHOMY S 477.0 ALLERGIC RHINITIS DUE TO POLLEN 01/02/2012 EVAN CANO MD 477.0 ALLERGIC RHINITIS DUE TO POLLEN 01/02/2012 MARISABEL ANDERSON APRN A 477.0 ALLERGIC RHINITIS DUE TO POLLEN 01/02/2012 KARISSA VALLE, NAHOMY S 477.0 ALLERGIC RHINITIS DUE TO POLLEN 01/02/2012 KATELYN HENRIQUEZ APRN 477.0 ALLERGIC RHINITIS DUE TO POLLEN 01/02/2012 DAVEY STEPHENSON MD 477.0 ALLERGIC RHINITIS DUE TO POLLEN 01/02/2012 MARIALUISA DPM, ORLY 477.0 ALLERGIC RHINITIS DUE TO POLLEN 01/02/2012 KARISSA PROCESS IMPROVEMENT ENGINEER, NAHOMY S 477.0 ALLERGIC RHINITIS DUE TO POLLEN 01/02/2012 MARIALUISA DPM, ORLY 477.0 ALLERGIC RHINITIS DUE TO POLLEN 01/02/2012 KARISSA PROCESS IMPROVEMENT ENGINEER, NAHOMY S 477.0 ALLERGIC RHINITIS DUE TO POLLEN 01/02/2012 KARISSA PROCESS IMPROVEMENT ENGINEER, NAHOMY S 477.0 ALLERGIC RHINITIS DUE TO POLLEN 01/02/2012 KARISSA PROCESS IMPROVEMENT ENGINEER, NAHOMY S 477.0 ALLERGIC RHINITIS DUE TO POLLEN 01/09/2012 787.01 NAUSEA WITH VOMITING 01/09/2012 919.4 INSECT BITE NONVENOMOUS OF OTHER MULTIPLE AND UNSPECIFIED SITES WITHOUT INFECTION 01/09/2012 787.01 NAUSEA WITH VOMITING 01/09/2012 919.4 INSECT BITE NONVENOMOUS OF OTHER MULTIPLE AND UNSPECIFIED SITES WITHOUT INFECTION 01/09/2012 787.01 NAUSEA WITH VOMITING 01/09/2012 919.4 INSECT BITE NONVENOMOUS OF OTHER MULTIPLE AND UNSPECIFIED SITES WITHOUT INFECTION 01/09/2012 DAVEY STEPHENSON MD 787.01 NAUSEA WITH VOMITING 01/09/2012 DAVEY STEPHENSON MD 919.4 INSECT BITE NONVENOMOUS OF OTHER MULTIPLE AND UNSPECIFIED SITES WITHOUT INFECTION 01/09/2012 ROEL LOWERY APRN R 787.01 NAUSEA WITH VOMITING 01/09/2012 ROEL LOWERY APRN R 919.4 INSECT BITE NONVENOMOUS OF OTHER MULTIPLE AND UNSPECIFIED SITES WITHOUT INFECTION 01/09/2012 DAVEY STEPHENSON MD 787.01 NAUSEA WITH VOMITING 01/09/2012 DAVEY STEPHENSON MD 919.4 INSECT BITE NONVENOMOUS OF OTHER MULTIPLE AND UNSPECIFIED SITES WITHOUT INFECTION 01/09/2012 OLEG ISAACS DO 787.01 NAUSEA WITH VOMITING 01/09/2012 OLEG ISAACS DO 919.4 INSECT BITE NONVENOMOUS OF OTHER MULTIPLE AND UNSPECIFIED SITES WITHOUT INFECTION 01/09/2012 DAVEY STEPHENSON MD 787.01 NAUSEA WITH VOMITING 01/09/2012 DAVEY STEPHENSON MD 919.4 INSECT BITE NONVENOMOUS OF OTHER MULTIPLE AND UNSPECIFIED SITES WITHOUT INFECTION 01/09/2012 KATELYN HENRIQUEZ APRN 787.01 NAUSEA WITH VOMITING 01/09/2012 KATELYN HENRIQUEZ APRN 919.4 INSECT BITE NONVENOMOUS OF OTHER MULTIPLE AND UNSPECIFIED SITES WITHOUT INFECTION 01/09/2012 EVAN CANO MD 787.01 NAUSEA WITH VOMITING 01/09/2012 EVAN CANO MD 919.4 INSECT BITE NONVENOMOUS OF OTHER MULTIPLE AND UNSPECIFIED SITES WITHOUT INFECTION 01/09/2012 NAHOMY HANCOCK APRN S 787.01 NAUSEA WITH VOMITING 01/09/2012 NAHOMY HANCOCK APRN S 919.4 INSECT BITE NONVENOMOUS OF OTHER MULTIPLE AND UNSPECIFIED SITES WITHOUT INFECTION 01/09/2012 EVAN CANO MD 787.01 NAUSEA WITH VOMITING 01/09/2012 EVAN CANO MD 919.4 INSECT BITE NONVENOMOUS OF OTHER MULTIPLE AND UNSPECIFIED SITES WITHOUT INFECTION 01/09/2012 MARISABEL ANDERSON APRN A 787.01 NAUSEA WITH VOMITING 01/09/2012 MARISABEL ANDERSON APRN A 919.4 INSECT BITE NONVENOMOUS OF OTHER MULTIPLE AND UNSPECIFIED SITES WITHOUT INFECTION 01/09/2012 LIDA HANCOCK APRNA S 787.01 NAUSEA WITH VOMITING 01/09/2012 LIDA HANCOCK APRNA S 919.4 INSECT BITE NONVENOMOUS OF OTHER MULTIPLE AND UNSPECIFIED SITES WITHOUT INFECTION 01/09/2012 KATELYN HENRIQUEZ APRN 787.01 NAUSEA WITH VOMITING 01/09/2012 KATELYN HENRIQUEZ APRN 919.4 INSECT BITE NONVENOMOUS OF OTHER MULTIPLE AND UNSPECIFIED SITES WITHOUT INFECTION 01/09/2012 DAVEY STEPHENSON MD 787.01 NAUSEA WITH VOMITING 01/09/2012 DAVEY STEPHENSON MD 919.4 INSECT BITE NONVENOMOUS OF OTHER MULTIPLE AND UNSPECIFIED SITES WITHOUT INFECTION 01/09/2012 ORLY ELAM DPM 787.01 NAUSEA WITH VOMITING 01/09/2012 ORLY ELAM DPM 919.4 INSECT BITE NONVENOMOUS OF OTHER MULTIPLE AND UNSPECIFIED SITES WITHOUT INFECTION 01/09/2012 NAHOMY HANCOCK APRN S 787.01 NAUSEA WITH VOMITING 01/09/2012 KARISSA PROCESS IMPROVEMENT ENGINEER, NAHOMY S 919.4 INSECT BITE NONVENOMOUS OF OTHER MULTIPLE AND UNSPECIFIED SITES WITHOUT INFECTION 01/09/2012 MARIALUISA DPM, ORLY 787.01 NAUSEA WITH VOMITING 01/09/2012 MARIALUISA DPM, ORLY 919.4 INSECT BITE NONVENOMOUS OF OTHER MULTIPLE AND UNSPECIFIED SITES WITHOUT INFECTION 01/09/2012 KARISSA PROCESS IMPROVEMENT ENGINEER, NAHOMY S 787.01 NAUSEA WITH VOMITING 01/09/2012 KARISSA PROCESS IMPROVEMENT ENGINEER, NAHOMY S 919.4 INSECT BITE NONVENOMOUS OF OTHER MULTIPLE AND UNSPECIFIED SITES WITHOUT INFECTION 01/09/2012 KARISSA PROCESS IMPROVEMENT ENGINEER, NAHOMY S 787.01 NAUSEA WITH VOMITING 01/09/2012 KARISSA PROCESS IMPROVEMENT ENGINEER, NAHOMY S 919.4 INSECT BITE NONVENOMOUS OF OTHER MULTIPLE AND UNSPECIFIED SITES WITHOUT INFECTION 01/09/2012 KARISSA PROCESS IMPROVEMENT ENGINEER, NAHOMY S 787.01 NAUSEA WITH VOMITING 01/09/2012 KARISSA PROCESS IMPROVEMENT ENGINEER, NAHOMY S 919.4 INSECT BITE NONVENOMOUS OF OTHER MULTIPLE AND UNSPECIFIED SITES WITHOUT INFECTION 01/31/2012 616.2 CYST OF [place] 01/31/2012 618.01 CYSTOCELE MIDLINE 01/31/2012 618.04 RECTOCELE 01/31/2012 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) 01/31/2012 V76.10 BREAST CANCER SCREENING 01/31/2012 V76.47 VAGINAL PAP SMEAR SCREENING 01/31/2012 616.2 CYST OF [place] 01/31/2012 618.01 CYSTOCELE MIDLINE 01/31/2012 618.04 RECTOCELE 01/31/2012 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) 01/31/2012 V76.10 BREAST CANCER SCREENING 01/31/2012 V76.47 VAGINAL PAP SMEAR SCREENING 01/31/2012 616.2 CYST OF [place] 01/31/2012 618.01 CYSTOCELE MIDLINE 01/31/2012 618.04 RECTOCELE 01/31/2012 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) 01/31/2012 V76.10 BREAST CANCER SCREENING 01/31/2012 V76.47 VAGINAL PAP SMEAR SCREENING 01/31/2012 HUDAVEY BACON MD 616.2 CYST OF [place] 01/31/2012 DAVEY STEPHENSON MD 618.01 CYSTOCELE MIDLINE 01/31/2012 DAVEY STEPHENSON MD 618.04 RECTOCELE 01/31/2012 DAVEY STEPHENSON MD 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) 01/31/2012 DAVEY STEPHENSON MD V76.10 BREAST CANCER SCREENING 01/31/2012 DAVEY STEPHENSON MD V76.47 VAGINAL PAP SMEAR SCREENING 01/31/2012 ROEL LOWERY APRN R 616.2 CYST OF [place] 01/31/2012 MYNOR LOWERY APRNIA R 618.01 CYSTOCELE MIDLINE 01/31/2012 MYNOR LOWERY APRNIA R 618.04 RECTOCELE 01/31/2012 ROEL LOWERY APRN R 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) 01/31/2012 MYNOR LOWERY APRNIA R V76.10 BREAST CANCER SCREENING 01/31/2012 ROEL LOWERY APRN V76.47 VAGINAL PAP SMEAR SCREENING 01/31/2012 DAVEY STEPHENSON MD 616.2 CYST OF [place] 01/31/2012 DAVEY STEPHENSON MD 618.01 CYSTOCELE MIDLINE 01/31/2012 DAVEY STEPHENSON MD 618.04 RECTOCELE 01/31/2012 DAVEY STEPHENSON MD 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) 01/31/2012 DAVEY STEPHENSON MD V76.10 BREAST CANCER SCREENING 01/31/2012 DAVEY STEPHENSON MD V76.47 VAGINAL PAP SMEAR SCREENING 01/31/2012 OLEG ISAACS DO 616.2 CYST OF [place] 01/31/2012 OLEG ISAACS DO 618.01 CYSTOCELE MIDLINE 01/31/2012 OLEG ISAACS DO K 618.04 RECTOCELE 01/31/2012 OLEG ISAACS DO 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) 01/31/2012 OLEG ISAACS DO V76.10 BREAST CANCER SCREENING 01/31/2012 OLEG ISAACS DO V76.47 VAGINAL PAP SMEAR SCREENING 01/31/2012 DAVEY STEPHENSON MD 616.2 CYST OF [place] 01/31/2012 DAVEY STEPHENSON MD.01 CYSTOCELE MIDLINE 01/31/2012 DAVEY STEPHENSON MD 618.04 RECTOCELE 01/31/2012 DAVEY STEPHENSON MD 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) 01/31/2012 DAVEY STEPHENSON MD V76.10 BREAST CANCER SCREENING 01/31/2012 DAVEY STEPHENSON MD V76.47 VAGINAL PAP SMEAR SCREENING 01/31/2012 KATELYN HENRIQUEZ APRN 616.2 CYST OF [place] 01/31/2012 KATELYN HENRIQUEZ APRN 618.01 CYSTOCELE MIDLINE 01/31/2012 KATELYN HENRIQUEZ APRN 618.04 RECTOCELE 01/31/2012 KATELYN HENRIQUEZ APRN 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) 01/31/2012 KATELYN HENRIQUEZ APRN V76.10 BREAST CANCER SCREENING 01/31/2012 KATELYN HENRIQUEZ APRN V76.47 VAGINAL PAP SMEAR SCREENING 01/31/2012 EVAN CANO MD 616.2 CYST OF [place] 01/31/2012 EVAN CANO MD 618.01 CYSTOCELE MIDLINE 01/31/2012 EVAN CANO MD 618.04 RECTOCELE 01/31/2012 EVAN CANO MD 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) 01/31/2012 EVAN CANO MD V76.10 BREAST CANCER SCREENING 01/31/2012 EVAN CANO MD V76.47 VAGINAL PAP SMEAR SCREENING 01/31/2012 NAHOMY HANCOCK APRN 616.2 CYST OF [place] 01/31/2012 NAHOMY HANCOCK APRN S 618.01 CYSTOCELE MIDLINE 01/31/2012 NAHOMY HANCOCK APRN S 618.04 RECTOCELE 01/31/2012 NAHOMY HANCOCK APRN 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) 01/31/2012 NAHOMY HANCOCK APRN S V76.10 BREAST CANCER SCREENING 01/31/2012 NAHOMY HANCOCK APRN S V76.47 VAGINAL PAP SMEAR SCREENING 01/31/2012 EVAN CANO MD 616.2 CYST OF [place] 01/31/2012 EVAN CANO MD N 618.01 CYSTOCELE MIDLINE 01/31/2012 EVAN CANO MD N 618.04 RECTOCELE 01/31/2012 EVAN CANO MD N 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) 01/31/2012 EVAN CANO MD N V76.10 BREAST CANCER SCREENING 01/31/2012 EVAN CANO MD V76.47 VAGINAL PAP SMEAR SCREENING 01/31/2012 MARISABEL ANDERSON APRN A 616.2 CYST OF [place] 01/31/2012 MONICA PROCESS IMPROVEMENT ENGINEER, MARISABEL A 618.01 CYSTOCELE MIDLINE 01/31/2012 SARITA ANDERSON APRNIDI A 618.04 RECTOCELE 01/31/2012 MONICA PROCESS IMPROVEMENT ENGINEER, MARISABEL A 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) 01/31/2012 MONICA VALLE MARISABEL A V76.10 BREAST CANCER SCREENING 01/31/2012 MARISABEL ANDERSON APRN A V76.47 VAGINAL PAP SMEAR SCREENING 01/31/2012 NAHOMY HANCOCK APRN S 616.2 CYST OF [place] 01/31/2012 LIDA HANCOCK APRNA S 618.01 CYSTOCELE MIDLINE 01/31/2012 LIDA HANCOCK APRNA S 618.04 RECTOCELE 01/31/2012 KRISTYN HANCOCK APRNNDA S 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) 01/31/2012 NAHOMY HANCOCK APRN S V76.10 BREAST CANCER SCREENING 01/31/2012 NAHOMY HANCOCK APRN S V76.47 VAGINAL PAP SMEAR SCREENING 01/31/2012 KATELYN HENRIQUEZ APRN 616.2 CYST OF [place] 01/31/2012 KATELYN HENRIQUEZ APRN 618.01 CYSTOCELE MIDLINE 01/31/2012 KATELYN HENRIQUEZ APRN 618.04 RECTOCELE 01/31/2012 KATELYN HENRIQUEZ APRN 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) 01/31/2012 KATELYN HENRIQUEZ APRN V76.10 BREAST CANCER SCREENING 01/31/2012 KATELYN HENRIQUEZ APRN V76.47 VAGINAL PAP SMEAR SCREENING 01/31/2012 DAVEY STEPHENSON MD 616.2 CYST OF [place] 01/31/2012 DAVEY STEPHENSON MD 618.01 CYSTOCELE MIDLINE 01/31/2012 DAVEY STEPHENSON MD 618.04 RECTOCELE 01/31/2012 DAVEY STEPHENSON MD 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) 01/31/2012 DAVEY STEPHENSON MD V76.10 BREAST CANCER SCREENING 01/31/2012 DAVEY STEPHENSON MD V76.47 VAGINAL PAP SMEAR SCREENING 01/31/2012 MARIALUISA DPM, ORLY 616.2 CYST OF [place] 01/31/2012 MARIALUISA DPM, ORLY 618.01 CYSTOCELE MIDLINE 01/31/2012 MARIALUISA DPM, ORLY 618.04 RECTOCELE 01/31/2012 MARIALUISA DPM, ORLY 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) 01/31/2012 MARIALUISA DPM, ORLY V76.10 BREAST CANCER SCREENING 01/31/2012 MARIALUISA DPM, ORLY V76.47 VAGINAL PAP SMEAR SCREENING 01/31/2012 KARISSA PROCESS IMPROVEMENT ENGINEER, NAHOMY S 616.2 CYST OF [place] 01/31/2012 KARISSA PROCESS IMPROVEMENT ENGINEER, NAHOMY S 618.01 CYSTOCELE MIDLINE 01/31/2012 KARISSA PROCESS IMPROVEMENT ENGINEER, NAHOMY S 618.04 RECTOCELE 01/31/2012 KARISSA PROCESS IMPROVEMENT ENGINEER, NAHOMY S 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) 01/31/2012 KARISSA PROCESS IMPROVEMENT ENGINEER, NAHOMY S V76.10 BREAST CANCER SCREENING 01/31/2012 KARISSA PROCESS IMPROVEMENT ENGINEER, NAHOMY S V76.47 VAGINAL PAP SMEAR SCREENING 01/31/2012 MARIALUISA DPM, ORLY 616.2 CYST OF [place] 01/31/2012 MARIALUISA DPM, ORLY 618.01 CYSTOCELE MIDLINE 01/31/2012 MARIALUISA DPM, ORLY 618.04 RECTOCELE 01/31/2012 MARIALUISA DPM, ORLY 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) 01/31/2012 MARIALUISA DPM, ORLY V76.10 BREAST CANCER SCREENING 01/31/2012 MARIALUISA DPM, ORLY V76.47 VAGINAL PAP SMEAR SCREENING 01/31/2012 KARISSA PROCESS IMPROVEMENT ENGINEER, NAHOMY S 616.2 CYST OF [place] 01/31/2012 KARISSA PROCESS IMPROVEMENT ENGINEER, NAHOMY S 618.01 CYSTOCELE MIDLINE 01/31/2012 KARISSA PROCESS IMPROVEMENT ENGINEER, NAHOMY S 618.04 RECTOCELE 01/31/2012 KARISSA PROCESS IMPROVEMENT ENGINEER, NAHOMY S 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) 01/31/2012 KARISSA PROCESS IMPROVEMENT ENGINEER, NAHOMY S V76.10 BREAST CANCER SCREENING 01/31/2012 KARISSA PROCESS IMPROVEMENT ENGINEER, NAHOMY S V76.47 VAGINAL PAP SMEAR SCREENING 01/31/2012 KARISSA PROCESS IMPROVEMENT ENGINEER, NAHOMY S 616.2 CYST OF [place] 01/31/2012 KARISSA PROCESS IMPROVEMENT ENGINEER, NAHOMY S 618.01 CYSTOCELE MIDLINE 01/31/2012 KARISSA PROCESS IMPROVEMENT ENGINEER, NAHOMY S 618.04 RECTOCELE 01/31/2012 KARISSA VALLE, NAHOMY S 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) 01/31/2012 KARISSA VALLE, NAHOMY S V76.10 BREAST CANCER SCREENING 01/31/2012 KARISSA PROCESS IMPROVEMENT ENGINEER, NAHOMY S V76.47 VAGINAL PAP SMEAR SCREENING 01/31/2012 KARISSA VALLE, NAHOMY S 616.2 CYST OF [place] 01/31/2012 KARISSA PROCESS IMPROVEMENT ENGINEER, NAHOMY S 618.01 CYSTOCELE MIDLINE 01/31/2012 KARISSA PROCESS IMPROVEMENT ENGINEER, NAHOMY S 618.04 RECTOCELE 01/31/2012 KARISSA VALLE, NAHOMY S 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) 01/31/2012 KARISSA PROCESS IMPROVEMENT ENGINEER, NAHOMY S V76.10 BREAST CANCER SCREENING 01/31/2012 KARISSA PROCESS IMPROVEMENT ENGINEER, NAHOMY S V76.47 VAGINAL PAP SMEAR SCREENING 02/01/2012 Ot 625.9 FEM GENITAL SYMPTOMS NOS 02/05/2012 596.89 OTHER SPECIFIED DISORDERS OF BLADDER 02/05/2012 625.9 PELVIC PAIN 02/05/2012 788.30 URINARY INCONTINENCE UNSPECIFIED 02/05/2012 596.89 OTHER SPECIFIED DISORDERS OF BLADDER 02/05/2012 625.9 PELVIC PAIN 02/05/2012 788.30 URINARY INCONTINENCE UNSPECIFIED 02/05/2012 596.89 OTHER SPECIFIED DISORDERS OF BLADDER 02/05/2012 625.9 PELVIC PAIN 02/05/2012 788.30 URINARY INCONTINENCE UNSPECIFIED 02/05/2012 DAVEY STEPHENSON MD 596.89 OTHER SPECIFIED DISORDERS OF BLADDER 02/05/2012 DAVEY STEPHENSON MD 625.9 PELVIC PAIN 02/05/2012 DAVEY STEPHENSON MD 788.30 URINARY INCONTINENCE UNSPECIFIED 02/05/2012 ROEL LOWERY APRN R 596.89 OTHER SPECIFIED DISORDERS OF BLADDER 02/05/2012 ROEL LOWERY APRN R 625.9 PELVIC PAIN 02/05/2012 ROEL LOWERY APRN R 788.30 URINARY INCONTINENCE UNSPECIFIED 02/05/2012 DAVEY STEPHENSON MD 596.89 OTHER SPECIFIED DISORDERS OF BLADDER 02/05/2012 DAVEY STEPHENSON MD 625.9 PELVIC PAIN 02/05/2012 DAVEY STEPHENSON MD 788.30 URINARY INCONTINENCE UNSPECIFIED 02/05/2012 YURIDIA ISAACS DOA K 596.89 OTHER SPECIFIED DISORDERS OF BLADDER 02/05/2012 SHITAL AGUILA OLEG K 625.9 PELVIC PAIN 02/05/2012 YURIDIA ISAACS DOA K 788.30 URINARY INCONTINENCE UNSPECIFIED 02/05/2012 DAVEY STEPHENSON MD 596.89 OTHER SPECIFIED DISORDERS OF BLADDER 02/05/2012 DAVEY STEPHENSON MD 625.9 PELVIC PAIN 02/05/2012 DAVEY STEPHENSON MD 788.30 URINARY INCONTINENCE UNSPECIFIED 02/05/2012 KATELYN HENRIQUEZ APRN 596.89 OTHER SPECIFIED DISORDERS OF BLADDER 02/05/2012 KATELYN HENRIQUEZ APRN 625.9 PELVIC PAIN 02/05/2012 KATELYN HENRIQUEZ APRN 788.30 URINARY INCONTINENCE UNSPECIFIED 02/05/2012 EVAN CANO MD 596.89 OTHER SPECIFIED DISORDERS OF BLADDER 02/05/2012 EVAN CANO MD 625.9 PELVIC PAIN 02/05/2012 EVAN CANO MD 788.30 URINARY INCONTINENCE UNSPECIFIED 02/05/2012 NAHOMY HANCOCK APRN 596.89 OTHER SPECIFIED DISORDERS OF BLADDER 02/05/2012 NAHOMY HANCOCK APRN 625.9 PELVIC PAIN 02/05/2012 KARISSA PROCESS IMPROVEMENT ENGINEER, NAHOMY S 788.30 URINARY INCONTINENCE UNSPECIFIED 02/05/2012 JEROME HOLLIDAY, EVAN N 596.89 OTHER SPECIFIED DISORDERS OF BLADDER 02/05/2012 EVAN CANO MD N 625.9 PELVIC PAIN 02/05/2012 JEROME HOLLIDAY, EVAN N 788.30 URINARY INCONTINENCE UNSPECIFIED 02/05/2012 MONICA PROCESS IMPROVEMENT ENGINEER, MARISABEL A 596.89 OTHER SPECIFIED DISORDERS OF BLADDER 02/05/2012 MONICA PROCESS IMPROVEMENT ENGINEER, MARISABEL A 625.9 PELVIC PAIN 02/05/2012 MONICA PROCESS IMPROVEMENT ENGINEER, MARISABEL A 788.30 URINARY INCONTINENCE UNSPECIFIED 02/05/2012 KARISSA VALLE, NAHOMY S 596.89 OTHER SPECIFIED DISORDERS OF BLADDER 02/05/2012 KRISTYN HANCOCK APRNNDA S 625.9 PELVIC PAIN 02/05/2012 KARISSA VALLE, NAHOMY S 788.30 URINARY INCONTINENCE UNSPECIFIED 02/05/2012 KATELYN HENRIQUEZ APRN T 596.89 OTHER SPECIFIED DISORDERS OF BLADDER 02/05/2012 KATELYN HENRIQUEZ APRN T 625.9 PELVIC PAIN 02/05/2012 KATELYN HENRIQUEZ APRN T 788.30 URINARY INCONTINENCE UNSPECIFIED 02/05/2012 DAVEY STEPHENSON MD 596.89 OTHER SPECIFIED DISORDERS OF BLADDER 02/05/2012 DAVEY STEPHENSON MD 625.9 PELVIC PAIN 02/05/2012 DAVEY STEPHENSON MD 788.30 URINARY INCONTINENCE UNSPECIFIED 02/05/2012 MARIALUISA DPM, ORLY 596.89 OTHER SPECIFIED DISORDERS OF BLADDER 02/05/2012 MARIALUISA DPM, ORLY 625.9 PELVIC PAIN 02/05/2012 MARIALUISA DPM, ORLY 788.30 URINARY INCONTINENCE UNSPECIFIED 02/05/2012 KARISSA VALLE NAHOMY S 596.89 OTHER SPECIFIED DISORDERS OF BLADDER 02/05/2012 KARISSA VALLE, NAHOMY S 625.9 PELVIC PAIN 02/05/2012 KARISSA VALLE NAHOMY S 788.30 URINARY INCONTINENCE UNSPECIFIED 02/05/2012 MARIALUISA DPM, ORLY 596.89 OTHER SPECIFIED DISORDERS OF BLADDER 02/05/2012 MARIALUISA DPM, ORLY 625.9 PELVIC PAIN 02/05/2012 MARIALUISA DPM, ORLY 788.30 URINARY INCONTINENCE UNSPECIFIED 02/05/2012 KRISTYN HANCOCK APRNNDA S 596.89 OTHER SPECIFIED DISORDERS OF BLADDER 02/05/2012 KRISTYN HANCOCK APRNNDA S 625.9 PELVIC PAIN 02/05/2012 KRISTYN HANCOCK APRNNDA S 788.30 URINARY INCONTINENCE UNSPECIFIED 02/05/2012 KARISSA VALLE NAHOMY S 596.89 OTHER SPECIFIED DISORDERS OF BLADDER 02/05/2012 KARISSA VALLE NAHOMY S 625.9 PELVIC PAIN 02/05/2012 KRISTYN HANCOCK APRNNDA S 788.30 URINARY INCONTINENCE UNSPECIFIED 02/05/2012 KARISSA VALLE, NAHOMY S 596.89 OTHER SPECIFIED DISORDERS OF BLADDER 02/05/2012 KARISSA VALLE NAHOMY S 625.9 PELVIC PAIN 02/05/2012 KARISSA VALLE, NAHOMY S 788.30 URINARY INCONTINENCE UNSPECIFIED 02/05/2012 Ot 618.01 CYSTOCELE, MIDLINE 02/05/2012 Ot 618.04 RECTOCELE 02/05/2012 Ot 625.9 FEM GENITAL SYMPTOMS NOS 02/05/2012 Ot 733.90 BONE CARTILAGE DIS NOS 02/07/2012 Ot 305.1 TOBACCO USE DISORDER 02/07/2012 Ot 311 DEPRESSIVE DISORDER NEC 02/07/2012 Ot 564.00 UNSPEC CONSTIPATION 02/07/2012 Ot 625.9 FEM GENITAL SYMPTOMS NOS 02/07/2012 Ot 733.90 BONE CARTILAGE DIS NOS 02/07/2012 Ot 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 02/07/2012 Ot 788.31 URGE INCONTINENCE 02/10/2012 787.91 DIARRHEA 02/10/2012 787.91 DIARRHEA 02/10/2012 787.91 DIARRHEA 02/10/2012 DAVEY STEPHENSON MD 787.91 DIARRHEA 02/10/2012 ROEL LOWERY APRN 787.91 DIARRHEA 02/10/2012 DAVEY STEPHENSON MD 787.91 DIARRHEA 02/10/2012 OLEG ISAACS DO 787.91 DIARRHEA 02/10/2012 DAVEY STEPHENSON MD 787.91 DIARRHEA 02/10/2012 KATELYN HENRIQUEZ APRN 787.91 DIARRHEA 02/10/2012 EVAN CANO MD 787.91 DIARRHEA 02/10/2012 KARISSA PROCESS IMPROVEMENT ENGINEER, ANHOMY S 787.91 DIARRHEA 02/10/2012 EVAN CANO MD 787.91 DIARRHEA 02/10/2012 MARISABEL ANDERSON APRN A 787.91 DIARRHEA 02/10/2012 NAHOMY HANCOCK APRN S 787.91 DIARRHEA 02/10/2012 KATELYN HENRIQUEZ APRN 787.91 DIARRHEA 02/10/2012 DAVEY STEPHENSON MD 787.91 DIARRHEA 02/10/2012 MARIALUISA DPM, ORLY 787.91 DIARRHEA 02/10/2012 KRISTYN HANCOCK APRNNDA S 787.91 DIARRHEA 02/10/2012 MARIALUISA DPM, ORLY 787.91 DIARRHEA 02/10/2012 KRISTYN HANCOCK APRNNDA S 787.91 DIARRHEA 02/10/2012 KRISTYN HANCOCK APRNNDA S 787.91 DIARRHEA 02/10/2012 KRISTYN HANCOCK APRNNDA S 787.91 DIARRHEA 02/13/2012 Ot 616.2 BARTHOLIN'S GLAND CYST 02/13/2012 Ot 625.9 FEM GENITAL SYMPTOMS NOS 02/13/2012 Ot 787.01 NAUSEA WITH VOMITING 02/15/2012 Ot 625.9 FEM GENITAL SYMPTOMS NOS 02/15/2012 Ot 780.2 SYNCOPE AND COLLAPSE 02/20/2012 Ot 616.2 BARTHOLIN'S GLAND CYST 02/27/2012 V07.4 HORMONE REPLACEMENT THERAPY (POSTMENOPAUSAL) 02/27/2012 V07.4 HORMONE REPLACEMENT THERAPY (POSTMENOPAUSAL) 02/27/2012 V07.4 HORMONE REPLACEMENT THERAPY (POSTMENOPAUSAL) 02/27/2012 DAVEY STEPHENSON MD V07.4 HORMONE REPLACEMENT THERAPY (POSTMENOPAUSAL) 02/27/2012 ROEL LOWERY APRN V07.4 HORMONE REPLACEMENT THERAPY (POSTMENOPAUSAL) 02/27/2012 DAVEY STEPHENSON MD V07.4 HORMONE REPLACEMENT THERAPY (POSTMENOPAUSAL) 02/27/2012 OLEG ISAACS DO V07.4 HORMONE REPLACEMENT THERAPY (POSTMENOPAUSAL) 02/27/2012 DAVEY STEPHENSON MD V07.4 HORMONE REPLACEMENT THERAPY (POSTMENOPAUSAL) 02/27/2012 KATELYN HENRIQUEZ APRN V07.4 HORMONE REPLACEMENT THERAPY (POSTMENOPAUSAL) 02/27/2012 EVAN CANO MD V07.4 HORMONE REPLACEMENT THERAPY (POSTMENOPAUSAL) 02/27/2012 KARISSA PROCESS IMPROVEMENT ENGINEER, NAHOMY S V07.4 HORMONE REPLACEMENT THERAPY (POSTMENOPAUSAL) 02/27/2012 EVAN CANO MD V07.4 HORMONE REPLACEMENT THERAPY (POSTMENOPAUSAL) 02/27/2012 MARISABEL ANDERSON APRN V07.4 HORMONE REPLACEMENT THERAPY (POSTMENOPAUSAL) 02/27/2012 LIDA HANCOCK APRNA S V07.4 HORMONE REPLACEMENT THERAPY (POSTMENOPAUSAL) 02/27/2012 KATELYN HENRIQUEZ APRN V07.4 HORMONE REPLACEMENT THERAPY (POSTMENOPAUSAL) 02/27/2012 DAVEY STEPHENSON MD V07.4 HORMONE REPLACEMENT THERAPY (POSTMENOPAUSAL) 02/27/2012 MARIALUISA DPM, ORLY V07.4 HORMONE REPLACEMENT THERAPY (POSTMENOPAUSAL) 02/27/2012 LIDA HANCOCK APRNA S V07.4 HORMONE REPLACEMENT THERAPY (POSTMENOPAUSAL) 02/27/2012 MARIALUISA DPM, ORLY V07.4 HORMONE REPLACEMENT THERAPY (POSTMENOPAUSAL) 02/27/2012 LIDA HANCOCK APRNA S V07.4 HORMONE REPLACEMENT THERAPY (POSTMENOPAUSAL) 02/27/2012 NAHOMY HANCOCK APRN S V07.4 HORMONE REPLACEMENT THERAPY (POSTMENOPAUSAL) 02/27/2012 LIDA HANCOCK APRNA S V07.4 HORMONE REPLACEMENT THERAPY (POSTMENOPAUSAL) 03/03/2012 Ot 616.10 VAGINITIS NOS 03/03/2012 Ot E930.9 ADV EFF ANTIBIOTIC NOS 04/11/2012 780.79 fatigue 04/11/2012 782.7 SPONTANEOUS ECCHYMOSES 04/11/2012 780.79 fatigue 04/11/2012 782.7 SPONTANEOUS ECCHYMOSES 04/11/2012 780.79 fatigue 04/11/2012 782.7 SPONTANEOUS ECCHYMOSES 04/11/2012 DAVEY STEPHENSON MD 780.79 fatigue 04/11/2012 DAVEY STEPHENSON MD 782.7 SPONTANEOUS ECCHYMOSES 04/11/2012 ROEL LOWERY APRN 780.79 fatigue 04/11/2012 ROEL LOWERY APRN 782.7 SPONTANEOUS ECCHYMOSES 04/11/2012 DAVEY STEPHENSON MD 780.79 fatigue 04/11/2012 DAVEY STEPHENSON MD 782.7 SPONTANEOUS ECCHYMOSES 04/11/2012 OLEG ISAACS DO 780.79 fatigue 04/11/2012 OLEG ISAACS DO Shon 782.7 SPONTANEOUS ECCHYMOSES 04/11/2012 DAVEY STEPHENSON MD 780.79 FATIGUE 04/11/2012 DAVEY STEPHENSON MD 782.7 SPONTANEOUS ECCHYMOSES 04/11/2012 KATELYN HENRIQUEZ APRN 780.79 FATIGUE 04/11/2012 KATELYN HENRIQUEZ APRN 782.7 SPONTANEOUS ECCHYMOSES 04/11/2012 EVAN CANO MD 780.79 FATIGUE 04/11/2012 EVAN CANO MD 782.7 SPONTANEOUS ECCHYMOSES 04/11/2012 NAHOMY HANCOCK APRN S 780.79 FATIGUE 04/11/2012 NAHOMY HANCOCK APRN S 782.7 SPONTANEOUS ECCHYMOSES 04/11/2012 EVAN CANO MD N 780.79 FATIGUE 04/11/2012 EVAN CANO MD 782.7 SPONTANEOUS ECCHYMOSES 04/11/2012 MARISABEL ANDERSON APRN A 780.79 FATIGUE 04/11/2012 MONICA VALLE MARISABEL A 782.7 SPONTANEOUS ECCHYMOSES 04/11/2012 LIDA HANCOCK APRNA S 780.79 FATIGUE 04/11/2012 LIDA HANCOCK APRNA S 782.7 SPONTANEOUS ECCHYMOSES 04/11/2012 KATELYN HENRIQUEZ APRN 780.79 FATIGUE 04/11/2012 KATELYN HENRIQUEZ APRN 782.7 SPONTANEOUS ECCHYMOSES 04/11/2012 DAVEY STEPHENSON MD 780.79 FATIGUE 04/11/2012 DAVEY STEPHENSON MD 782.7 SPONTANEOUS ECCHYMOSES 04/11/2012 MARIALUISA DPM, ORLY 780.79 FATIGUE 04/11/2012 MARIALUISA DPM, ORLY 782.7 SPONTANEOUS ECCHYMOSES 04/11/2012 LIDA HANCOCK APRNA S 780.79 FATIGUE 04/11/2012 KRISTYN HANCOCK APRNNDA S 782.7 SPONTANEOUS ECCHYMOSES 04/11/2012 MARIALUISA DPM, ORLY 780.79 FATIGUE 04/11/2012 MARIALUISA DPM, ORLY 782.7 SPONTANEOUS ECCHYMOSES 04/11/2012 KARISSA PROCESS IMPROVEMENT ENGINEER, NAHOMY S 780.79 FATIGUE 04/11/2012 KARISSA PROCESS IMPROVEMENT ENGINEER, NAHOMY S 782.7 SPONTANEOUS ECCHYMOSES 04/11/2012 KARISSA PROCESS IMPROVEMENT ENGINEER, NAHOMY S 780.79 FATIGUE 04/11/2012 KARISSA PROCESS IMPROVEMENT ENGINEER, NAHOMY S 782.7 SPONTANEOUS ECCHYMOSES 04/11/2012 KARISSA PROCESS IMPROVEMENT ENGINEER, NAHOMY S 780.79 FATIGUE 04/11/2012 KARISSA PROCESS IMPROVEMENT ENGINEER, NAHOMY S 782.7 SPONTANEOUS ECCHYMOSES 04/24/2012 268.9 UNSPECIFIED VITAMIN D DEFICIENCY 04/24/2012 338.29 CHRONIC PAIN 04/24/2012 780.96 GENERALIZED PAIN 04/24/2012 268.9 UNSPECIFIED VITAMIN D DEFICIENCY 04/24/2012 338.29 CHRONIC PAIN 04/24/2012 780.96 GENERALIZED PAIN 04/24/2012 268.9 UNSPECIFIED VITAMIN D DEFICIENCY 04/24/2012 338.29 CHRONIC PAIN 04/24/2012 780.96 GENERALIZED PAIN 04/24/2012 DAVEY STEPHENSON MD 268.9 UNSPECIFIED VITAMIN D DEFICIENCY 04/24/2012 DAVEY STEPHENSON MD 338.29 CHRONIC PAIN 04/24/2012 DAVEY STEPHENSON MD 780.96 GENERALIZED PAIN 04/24/2012 ROEL LOWERY APRN R 268.9 UNSPECIFIED VITAMIN D DEFICIENCY 04/24/2012 ROEL LOWERY APRN R 338.29 CHRONIC PAIN 04/24/2012 ROEL LOWERY APRN R 780.96 GENERALIZED PAIN 04/24/2012 DAVEY STEPHENSON MD 268.9 UNSPECIFIED VITAMIN D DEFICIENCY 04/24/2012 DAVEY STEPHENSON MD 338.29 CHRONIC PAIN 04/24/2012 DAVEY STEPHENSON MD 780.96 GENERALIZED PAIN 04/24/2012 ISAACS DO, OLEG K 268.9 UNSPECIFIED VITAMIN D DEFICIENCY 04/24/2012 ISAACS DO, OLEG K 338.29 CHRONIC PAIN 04/24/2012 ISAACS DO, OLEG K 780.96 GENERALIZED PAIN 04/24/2012 DAVEY STEPHENSON MD 268.9 UNSPECIFIED VITAMIN D DEFICIENCY 04/24/2012 DAVEY STEPHENSON MD 338.29 CHRONIC PAIN 04/24/2012 DAVEY STEPHENSON MD 780.96 GENERALIZED PAIN 04/24/2012 KATELYN HENRIQUEZ APRN 268.9 UNSPECIFIED VITAMIN D DEFICIENCY 04/24/2012 KATELYN HENRIQUEZ APRN T 338.29 CHRONIC PAIN 04/24/2012 KATELYN HENRIQUEZ APRN T 780.96 GENERALIZED PAIN 04/24/2012 EVAN CANO MD N 268.9 UNSPECIFIED VITAMIN D DEFICIENCY 04/24/2012 EVAN CANO MD N 338.29 CHRONIC PAIN 04/24/2012 EVAN CANO MD N 780.96 GENERALIZED PAIN 04/24/2012 LIDA HANCOCK APRNA S 268.9 UNSPECIFIED VITAMIN D DEFICIENCY 04/24/2012 KARISSA VALLE NAHOMY S 338.29 CHRONIC PAIN 04/24/2012 KARISSA VALLE NAHOMY S 780.96 GENERALIZED PAIN 04/24/2012 EVAN CANO MD N 268.9 UNSPECIFIED VITAMIN D DEFICIENCY 04/24/2012 EVAN CANO MD N 338.29 CHRONIC PAIN 04/24/2012 EVAN CANO MD N 780.96 GENERALIZED PAIN 04/24/2012 MONICA VALLE MARISABEL A 268.9 UNSPECIFIED VITAMIN D DEFICIENCY 04/24/2012 MONICAMILLER VALLE MARISABEL A 338.29 CHRONIC PAIN 04/24/2012 MONICA APRN, MARISABEL A 780.96 GENERALIZED PAIN 04/24/2012 LIDA HANCOCK APRNA S 268.9 UNSPECIFIED VITAMIN D DEFICIENCY 04/24/2012 KRISTYN HANCOCK APRNNDA S 338.29 CHRONIC PAIN 04/24/2012 LIDA HANCOCK APRNA S 780.96 GENERALIZED PAIN 04/24/2012 KATELYN HENRIQUEZ APRN 268.9 UNSPECIFIED VITAMIN D DEFICIENCY 04/24/2012 KATELYN HENRIQUEZ APRN T 338.29 CHRONIC PAIN 04/24/2012 KATELYN HENRIQUEZ APRN T 780.96 GENERALIZED PAIN 04/24/2012 DAVEY STEPHENSON MD 268.9 UNSPECIFIED VITAMIN D DEFICIENCY 04/24/2012 DAVEY STEPHENSON MD 338.29 CHRONIC PAIN 04/24/2012 DAVEY STEPHENSON MD 780.96 GENERALIZED PAIN 04/24/2012 MARIALUISA DPM, ORLY 268.9 UNSPECIFIED VITAMIN D DEFICIENCY 04/24/2012 MARIALUISA DPM, ORLY 338.29 CHRONIC PAIN 04/24/2012 MARIALUISA DPM, ORLY 780.96 GENERALIZED PAIN 04/24/2012 KARISSA PROCESS IMPROVEMENT ENGINEER, NAHOMY S 268.9 UNSPECIFIED VITAMIN D DEFICIENCY 04/24/2012 KARISSA PROCESS IMPROVEMENT ENGINEER, NAHOMY S 338.29 CHRONIC PAIN 04/24/2012 KARISSA PROCESS IMPROVEMENT ENGINEER, NAHOMY S 780.96 GENERALIZED PAIN 04/24/2012 MARIALUISA DPM, ORLY 268.9 UNSPECIFIED VITAMIN D DEFICIENCY 04/24/2012 MARIALUISA DPM, ORLY 338.29 CHRONIC PAIN 04/24/2012 MARIALUISA DPM, ORLY 780.96 GENERALIZED PAIN 04/24/2012 KARISSA VALLE, NAHOMY S 268.9 UNSPECIFIED VITAMIN D DEFICIENCY 04/24/2012 KARISSA PROCESS IMPROVEMENT ENGINEER, NAHOMY S 338.29 CHRONIC PAIN 04/24/2012 KARISSA PROCESS IMPROVEMENT ENGINEER, NAHOMY S 780.96 GENERALIZED PAIN 04/24/2012 KARISSA VALLE, NAHOMY S 268.9 UNSPECIFIED VITAMIN D DEFICIENCY 04/24/2012 KARISSA VALLE, NAHOMY S 338.29 CHRONIC PAIN 04/24/2012 KARISSA VALLE, NAHOMY S 780.96 GENERALIZED PAIN 04/24/2012 KARISSA VALLE, NAHOMY S 268.9 UNSPECIFIED VITAMIN D DEFICIENCY 04/24/2012 KARISSA PROCESS IMPROVEMENT ENGINEER, NAHOMY S 338.29 CHRONIC PAIN 04/24/2012 KARISSA VALLE, NAHOMY S 780.96 GENERALIZED PAIN 05/05/2012 Ot 465.9 ACUTE URI NOS 05/05/2012 Ot 729.1 MYALGIA AND MYOSITIS NOS 05/05/2012 Ot 786.2 COUGH 05/30/2012 703.0 INGROWING NAIL 05/30/2012 703.0 INGROWING NAIL 05/30/2012 703.0 INGROWING NAIL 05/30/2012 DAVEY STEPHENSON MD 703.0 INGROWING NAIL 05/30/2012 BEVERLEY VALLE, ROEL Masterson 703.0 INGROWING NAIL 05/30/2012 DAVEY STEPHENSON MD 703.0 INGROWING NAIL 05/30/2012 DAVEY STEPHENSON MD 703.0 INGROWING NAIL 05/30/2012 FLORENCE VALLE, KATELYN Villarreal 703.0 INGROWING NAIL 05/30/2012 JEROME HOLLIDAY, EVAN An 703.0 INGROWING NAIL 05/30/2012 KARISSA PROCESS IMPROVEMENT ENGINEER, NAHOMY S 703.0 INGROWING NAIL 05/30/2012 JEROME HOLLIDAY, EVAN N 703.0 INGROWING NAIL 05/30/2012 MONICA PROCESS IMPROVEMENT ENGINEER, MARISABEL A 703.0 INGROWING NAIL 05/30/2012 KARISSA PROCESS IMPROVEMENT ENGINEER, NAHOMY S 703.0 INGROWING NAIL 05/30/2012 FLORENCE PROCESS IMPROVEMENT ENGINEER, KATELYN Villarreal 703.0 INGROWING NAIL 05/30/2012 SEEMA HOLLIDAY, DAVEY 703.0 INGROWING NAIL 05/30/2012 MARIALUISA DPM, ORLY 703.0 INGROWING NAIL 05/30/2012 KARISSA PROCESS IMPROVEMENT ENGINEER, NAHOMY S 703.0 INGROWING NAIL 05/30/2012 MARIALUISA DPM, ORLY 703.0 INGROWING NAIL 05/30/2012 KARISSA PROCESS IMPROVEMENT ENGINEER, NAHOMY S 703.0 INGROWING NAIL 05/30/2012 KARISSA PROCESS IMPROVEMENT ENGINEER, NAHOMY S 703.0 INGROWING NAIL 05/30/2012 KARISSA PROCESS IMPROVEMENT ENGINEER, NAHOMY S 703.0 INGROWING NAIL 09/12/2012 Ot 726.5 ENTHESOPATHY OF HIP 09/12/2012 Ot 729.1 MYALGIA AND MYOSITIS NOS 09/12/2012 Ot V57.1 PHYSICAL THERAPY NEC 09/21/2012 Ot 300.00 ANXIETY STATE NOS 09/21/2012 Ot 311 DEPRESSIVE DISORDER NEC 04/18/2013 DAVEY STEPHENSON MD 729.1 MYALGIA AND MYOSITIS UNSPECIFIED 04/18/2013 DAVEY STEPHENSON MD V03.82 PPV23 (PNEUMOVAX) DX 04/18/2013 ROEL LOWERY APRN R 729.1 MYALGIA AND MYOSITIS UNSPECIFIED 04/18/2013 ROEL LOWERY APRN R V03.82 PPV23 (PNEUMOVAX) DX 04/18/2013 DAVEY STEPHENSON MD 729.1 MYALGIA AND MYOSITIS UNSPECIFIED 04/18/2013 DAVEY STEPHENSON MD V03.82 PPV23 (PNEUMOVAX) DX 04/18/2013 DAVEY STEPHENSON MD 729.1 MYALGIA AND MYOSITIS UNSPECIFIED 04/18/2013 DAVEY STEPHENSON MD V03.82 PPV23 (PNEUMOVAX) DX 04/18/2013 KATELYN HENRIQUEZ APRN 729.1 MYALGIA AND MYOSITIS UNSPECIFIED 04/18/2013 KATELYN HENRIQUEZ APRN V03.82 PPV23 (PNEUMOVAX) DX 04/18/2013 EVAN CANO MD 729.1 MYALGIA AND MYOSITIS UNSPECIFIED 04/18/2013 EVAN CANO MD V03.82 PPV23 (PNEUMOVAX) DX 04/18/2013 NAHOMY HANCOCK APRN S 729.1 MYALGIA AND MYOSITIS UNSPECIFIED 04/18/2013 NAHOMY HANCOCK APRN V03.82 PPV23 (PNEUMOVAX) DX 04/18/2013 EVAN CANO MD 729.1 MYALGIA AND MYOSITIS UNSPECIFIED 04/18/2013 EVAN CANO MD V03.82 PPV23 (PNEUMOVAX) DX 04/18/2013 MARISABEL ANDERSON APRN A 729.1 MYALGIA AND MYOSITIS UNSPECIFIED 04/18/2013 MARISABEL ANDERSON APRN A V03.82 PPV23 (PNEUMOVAX) DX 04/18/2013 NAHOMY HANCOCK APRN S 729.1 MYALGIA AND MYOSITIS UNSPECIFIED 04/18/2013 NAHOMY HANCOCK APRN S V03.82 PPV23 (PNEUMOVAX) DX 04/18/2013 KATELYN HENRIQUEZ APRN 729.1 MYALGIA AND MYOSITIS UNSPECIFIED 04/18/2013 KATELYN HENRIQUEZ APRN V03.82 PPV23 (PNEUMOVAX) DX 04/18/2013 DAVEY STEPHENSON MD 729.1 MYALGIA AND MYOSITIS UNSPECIFIED 04/18/2013 DAVEY STEPHENSON MD V03.82 PPV23 (PNEUMOVAX) DX 04/18/2013 MARIALUISA DPM, ORLY 729.1 MYALGIA AND MYOSITIS UNSPECIFIED 04/18/2013 MARIALUISA DPM, ORLY V03.82 PPV23 (PNEUMOVAX) DX 04/18/2013 NAHOMY HANCOCK APRN S 729.1 MYALGIA AND MYOSITIS UNSPECIFIED 04/18/2013 KARISSA VALLE, NAHOMY S V03.82 PPV23 (PNEUMOVAX) DX 04/18/2013 MARIALUISA DPM, ORLY 729.1 MYALGIA AND MYOSITIS UNSPECIFIED 04/18/2013 MARIALUISA DPM, ORLY V03.82 PPV23 (PNEUMOVAX) DX 04/18/2013 KARISSA PROCESS IMPROVEMENT ENGINEER, NAHOMY S 729.1 MYALGIA AND MYOSITIS UNSPECIFIED 04/18/2013 KARISSA PROCESS IMPROVEMENT ENGINEER, NAHOMY S V03.82 PPV23 (PNEUMOVAX) DX 04/18/2013 KARISSA PROCESS IMPROVEMENT ENGINEER, NAHOMY S 729.1 MYALGIA AND MYOSITIS UNSPECIFIED 04/18/2013 KARISSA BRIZUELAN, NAHOMY S V03.82 PPV23 (PNEUMOVAX) DX 04/18/2013 KARISSA PROCESS IMPROVEMENT ENGINEER, NAHOMY S 729.1 MYALGIA AND MYOSITIS UNSPECIFIED 04/18/2013 KARISSA PROCESS IMPROVEMENT ENGINEERKRISTYN AnNDA S V03.82 PPV23 (PNEUMOVAX) DX 05/16/2013 MYNOR LOWERY APRNIA R 780.4 DIZZINESS AND VERTIGO 05/16/2013 MYNOR LOWERY APRNIA R 787.02 NAUSEA ALONE 05/16/2013 DAVEY STEPHENSON MD 780.4 DIZZINESS AND VERTIGO 05/16/2013 DAVEY STEPHENSON MD 787.02 NAUSEA ALONE 05/16/2013 DAVEY STEPHENSON MD 780.4 DIZZINESS AND VERTIGO 05/16/2013 DAVEY STEPHENSON MD 787.02 NAUSEA ALONE 05/16/2013 KATELYN HENRIQUEZ APRN 780.4 DIZZINESS AND VERTIGO 05/16/2013 KATELYN HENRIQUEZ APRN 787.02 NAUSEA ALONE 05/16/2013 EVAN CANO MD 780.4 DIZZINESS AND VERTIGO 05/16/2013 EVAN CANO MD 787.02 NAUSEA ALONE 05/16/2013 NAHOMY HANCOCK APRN S 780.4 DIZZINESS AND VERTIGO 05/16/2013 NAHOMY HANCOCK APRN S 787.02 NAUSEA ALONE 05/16/2013 EVAN CANO MD 780.4 DIZZINESS AND VERTIGO 05/16/2013 EVNA CANO MD 787.02 NAUSEA ALONE 05/16/2013 MONICA PROCESS IMPROVEMENT ENGINEER, MARISABEL A 780.4 DIZZINESS AND VERTIGO 05/16/2013 MONICA PROCESS IMPROVEMENT ENGINEER, MARISABEL A 787.02 NAUSEA ALONE 05/16/2013 KARISSACHRISTOPHER VALLE, NAHOMY S 780.4 DIZZINESS AND VERTIGO 05/16/2013 KARISSA VALLE, NAHOMY S 787.02 NAUSEA ALONE 05/16/2013 KATELYN HENRIQUEZ APRN 780.4 DIZZINESS AND VERTIGO 05/16/2013 KATELYN HENRIQUEZ APRN 787.02 NAUSEA ALONE 05/16/2013 DAVEY STEPHENSON MD 780.4 DIZZINESS AND VERTIGO 05/16/2013 DAVEY STEPHENSON MD 787.02 NAUSEA ALONE 05/16/2013 MARIALUISA DPM, ORLY 780.4 DIZZINESS AND VERTIGO 05/16/2013 MARIALUISA DPM, ORLY 787.02 NAUSEA ALONE 05/16/2013 KARISSA VALLE, NAHOMY S 780.4 DIZZINESS AND VERTIGO 05/16/2013 KARISSA VALLE, NAHOMY S 787.02 NAUSEA ALONE 05/16/2013 MARIALUISA DPM, ORLY 780.4 DIZZINESS AND VERTIGO 05/16/2013 MARIALUISA DPM, ORLY 787.02 NAUSEA ALONE 05/16/2013 KARISSA VALLE, NAHOMY S 780.4 DIZZINESS AND VERTIGO 05/16/2013 KARISSA PROCESS IMPROVEMENT ENGINEER, NAHOMY S 787.02 NAUSEA ALONE 05/16/2013 KARISSA PROCESS IMPROVEMENT ENGINEER, NAHOMY S 780.4 DIZZINESS AND VERTIGO 05/16/2013 KARISSA VALLE, NAHOMY S 787.02 NAUSEA ALONE 05/16/2013 KARISSA PROCESS IMPROVEMENT ENGINEER, NAHOMY S 780.4 DIZZINESS AND VERTIGO 05/16/2013 KARISSA PROCESS IMPROVEMENT ENGINEER, NAHOMY S 787.02 NAUSEA ALONE 05/20/2013 DAVEY STEPHENSON MD 461.9 ACUTE SINUSITIS UNSPECIFIED 05/20/2013 DAVEY STEPHENSON MD 461.9 ACUTE SINUSITIS UNSPECIFIED 05/20/2013 KATELYN HENRIQUEZ APRN 461.9 ACUTE SINUSITIS UNSPECIFIED 05/20/2013 EVAN CANO MD 461.9 ACUTE SINUSITIS UNSPECIFIED 05/20/2013 KRISTYN HANCOCK APRNNDA S 461.9 ACUTE SINUSITIS UNSPECIFIED 05/20/2013 EVAN CANO MD N 461.9 ACUTE SINUSITIS UNSPECIFIED 05/20/2013 MONICA PROCESS IMPROVEMENT ENGINEER, MARISABEL A 461.9 ACUTE SINUSITIS UNSPECIFIED 05/20/2013 KARISSA PROCESS IMPROVEMENT ENGINEER, NAHOMY S 461.9 ACUTE SINUSITIS UNSPECIFIED 05/20/2013 FLORENCE VALLE, KATELYN Villarreal 461.9 ACUTE SINUSITIS UNSPECIFIED 05/20/2013 DAVEY STEPHENSON MD 461.9 ACUTE SINUSITIS UNSPECIFIED 05/20/2013 MARIALUISA DPM, ORLY 461.9 ACUTE SINUSITIS UNSPECIFIED 05/20/2013 KARISSA PROCESS IMPROVEMENT ENGINEER, NAHOMY S 461.9 ACUTE SINUSITIS UNSPECIFIED 05/20/2013 MARIALUISA DPM, ORLY 461.9 ACUTE SINUSITIS UNSPECIFIED 05/20/2013 KARISSA PROCESS IMPROVEMENT ENGINEER, NAHOMY S 461.9 ACUTE SINUSITIS UNSPECIFIED 05/20/2013 KARISSA PROCESS IMPROVEMENT ENGINEER, NAHOMY S 461.9 ACUTE SINUSITIS UNSPECIFIED 05/20/2013 KARISSA PROCESS IMPROVEMENT ENGINEER, NAHOMY S 461.9 ACUTE SINUSITIS UNSPECIFIED 09/16/2013 DAVEY STEPHESNON MD 477.9 ALLERGIC RHINITIS CAUSE UNSPECIFIED 09/16/2013 KATELYN HENRIQUEZ APRN 477.9 ALLERGIC RHINITIS CAUSE UNSPECIFIED 09/16/2013 EVAN CANO MD N 477.9 ALLERGIC RHINITIS CAUSE UNSPECIFIED 09/16/2013 KARISSA PROCESS IMPROVEMENT ENGINEER, NAHOMY S 477.9 ALLERGIC RHINITIS CAUSE UNSPECIFIED 09/16/2013 EVAN CANO MD 477.9 ALLERGIC RHINITIS CAUSE UNSPECIFIED 09/16/2013 MONICA PROCESS IMPROVEMENT ENGINEER, MARISABEL A 477.9 ALLERGIC RHINITIS CAUSE UNSPECIFIED 09/16/2013 KARISSA PROCESS IMPROVEMENT ENGINEER, NAHOMY S 477.9 ALLERGIC RHINITIS CAUSE UNSPECIFIED 09/16/2013 KATELYN HENRIQUEZ APRN 477.9 ALLERGIC RHINITIS CAUSE UNSPECIFIED 09/16/2013 DAVEY STEPHENSON MD 477.9 ALLERGIC RHINITIS CAUSE UNSPECIFIED 09/16/2013 MARIALUISA DPM, ORLY 477.9 ALLERGIC RHINITIS CAUSE UNSPECIFIED 09/16/2013 KARISSA PROCESS IMPROVEMENT ENGINEER, NAHOMY S 477.9 ALLERGIC RHINITIS CAUSE UNSPECIFIED 09/16/2013 MARIALUISA DPM, ORLY 477.9 ALLERGIC RHINITIS CAUSE UNSPECIFIED 09/16/2013 KARISSA PROCESS IMPROVEMENT ENGINEER, NAHOMY S 477.9 ALLERGIC RHINITIS CAUSE UNSPECIFIED 09/16/2013 KARISSA PROCESS IMPROVEMENT ENGINEER, NAHOMY S 477.9 ALLERGIC RHINITIS CAUSE UNSPECIFIED 09/16/2013 KARISSA PROCESS IMPROVEMENT ENGINEER, NAHOMY S 477.9 ALLERGIC RHINITIS CAUSE UNSPECIFIED 12/16/2013 EVAN CANO MD N 373.00 BLEPHARITIS UNSPECIFIED 12/16/2013 KARISSA BRIZUELAN, NAHOMY S 373.00 BLEPHARITIS UNSPECIFIED 12/16/2013 EVAN CANO MD N 373.00 BLEPHARITIS UNSPECIFIED 12/16/2013 MONICA PROCESS IMPROVEMENT ENGINEER, MARISABEL A 373.00 BLEPHARITIS UNSPECIFIED 12/16/2013 KARISSA PROCESS IMPROVEMENT ENGINEER, NAHMOY S 373.00 BLEPHARITIS UNSPECIFIED 12/16/2013 FLORENCE PROCESS IMPROVEMENT ENGINEER, KATELYN Villarreal 373.00 BLEPHARITIS UNSPECIFIED 12/16/2013 SEEMA HOLLIDAY, DAVEY 373.00 BLEPHARITIS UNSPECIFIED 12/16/2013 MARIALUISA DPM, ORLY 373.00 BLEPHARITIS UNSPECIFIED 12/16/2013 KARISSA PROCESS IMPROVEMENT ENGINEER, NAHOMY S 373.00 BLEPHARITIS UNSPECIFIED 12/16/2013 MARIALUISA DPM, ORLY 373.00 BLEPHARITIS UNSPECIFIED 12/16/2013 KARISSA BRIZUELAN, NAHOMY S 373.00 BLEPHARITIS UNSPECIFIED 12/16/2013 KARISSA BRIZUELAN, NAHOMY S 373.00 BLEPHARITIS UNSPECIFIED 12/16/2013 KARISSA VALLE, NAHOMY S 373.00 BLEPHARITIS UNSPECIFIED 01/29/2014 EVAN CANO MD N Ot 300.00 ANXIETY STATE NOS 01/29/2014 EVAN CANO MD Ot 305.1 TOBACCO USE DISORDER 01/29/2014 EVAN CANO MD Ot 311 DEPRESSIVE DISORDER NEC 01/29/2014 EVAN CANO MD Ot 599.0 URIN TRACT INFECTION NOS 01/29/2014 EVAN CANO MD Ot 729.1 MYALGIA AND MYOSITIS NOS 01/29/2014 EVAN CANO MD Ot 965.09 POISONING-OPIATES NEC 01/29/2014 EVAN CANO MD Ot E950.0 SUICIDE-ANALGESICS 02/05/2014 KARISSA VALLE NAHOMY S 788.63 URINARY URGENCY 02/05/2014 KRISTYN HANCOCK APRNNDA S V70.0 EXAM - ROUTINE H&P 02/05/2014 EVAN CANO MD 788.63 URINARY URGENCY 02/05/2014 EVAN CANO MD V70.0 EXAM - ROUTINE H&P 02/05/2014 MONICA APRN, MARISABEL A 788.63 URINARY URGENCY 02/05/2014 MONICA VALLE, MARISABEL A V70.0 EXAM - ROUTINE H&P 02/05/2014 KRISTYN HANCOCK APRNNDA S 788.63 URINARY URGENCY 02/05/2014 KARISSA VALLE NAHOMY S V70.0 EXAM - ROUTINE H&P 02/05/2014 KATELYN HENRIQUEZ APRN 788.63 URINARY URGENCY 02/05/2014 KATELYN HENRIQUEZ APRN V70.0 EXAM - ROUTINE H&P 02/05/2014 DAVEY STEPHENSON MD 788.63 URINARY URGENCY 02/05/2014 DAVEY STEPHENSON MD V70.0 EXAM - ROUTINE H&P 02/05/2014 MARIALUISA DPM, ORLY 788.63 URINARY URGENCY 02/05/2014 MARIALUISA DPM, ORLY V70.0 EXAM - ROUTINE H&P 02/05/2014 KRISTYN HANCOCK APRNNDA S 788.63 URINARY URGENCY 02/05/2014 KRISTYN HANCOCK APRNNDA S V70.0 EXAM - ROUTINE H&P 02/05/2014 MARIALUISA DPM, ORLY 788.63 URINARY URGENCY 02/05/2014 MARIALUISA DPM, ORLY V70.0 EXAM - ROUTINE H&P 02/05/2014 KARISSA VALLE NAHMOY S 788.63 URINARY URGENCY 02/05/2014 KARISSA VALLE NAHOMY S V70.0 EXAM - ROUTINE H&P 02/05/2014 KARISSA VALLE NAHOMY S 788.63 URINARY URGENCY 02/05/2014 KRISTYN HANCOCK APRNNDA S V70.0 EXAM - ROUTINE H&P 02/05/2014 KARISSA PROCESS IMPROVEMENT ENGINEER, NAHOMY S 788.63 URINARY URGENCY 02/05/2014 KARISSA VALLE, NAHOMY S V70.0 EXAM - ROUTINE H&P 03/10/2014 JEROME HOLLIDAY, EVAN N 793.80 UNSPECIFIED (ABNORMAL) MAMMOGRAM 03/10/2014 MONICAMILLER VALLE, MARISABEL A 793.80 UNSPECIFIED (ABNORMAL) MAMMOGRAM 03/10/2014 KARISSA VALLE, NAHOMY S 793.80 UNSPECIFIED (ABNORMAL) MAMMOGRAM 03/10/2014 KATELYN HENRIQUEZ APRN T 793.80 UNSPECIFIED (ABNORMAL) MAMMOGRAM 03/10/2014 DAVEY STEPHENSON MD 793.80 UNSPECIFIED (ABNORMAL) MAMMOGRAM 03/10/2014 MARIALUISA DPM, ORLY 793.80 UNSPECIFIED (ABNORMAL) MAMMOGRAM 03/10/2014 KARISSA VALLE, NAHOMY S 793.80 UNSPECIFIED (ABNORMAL) MAMMOGRAM 03/10/2014 MARIALUISA DPM, ORLY 793.80 UNSPECIFIED (ABNORMAL) MAMMOGRAM 03/10/2014 KARISSA VALLE, NAHOMY S 793.80 UNSPECIFIED (ABNORMAL) MAMMOGRAM 03/10/2014 KARISSA VALLE, NAHOMY S 793.80 UNSPECIFIED (ABNORMAL) MAMMOGRAM 03/10/2014 KARISSA VALLE, NAHOMY S 793.80 UNSPECIFIED (ABNORMAL) MAMMOGRAM 03/16/2014 MONICAMILLER VALLE, MARISABEL A 788.41 URINARY FREQUENCY 03/16/2014 KARISSA VALLE, NAHOMY S 788.41 URINARY FREQUENCY 03/16/2014 KATELYN HENRIQUEZ APRN 788.41 URINARY FREQUENCY 03/16/2014 DAVEY STEPHENSON MD 788.41 URINARY FREQUENCY 03/16/2014 MARIALUISA DPM, ORLY 788.41 URINARY FREQUENCY 03/16/2014 KARISSA VALLE, NAHOMY S 788.41 URINARY FREQUENCY 03/16/2014 MARIALUISA DPM, ORLY 788.41 URINARY FREQUENCY 03/16/2014 KARISSA VALLE, NAHOMY S 788.41 URINARY FREQUENCY 03/16/2014 KARISSA VALLE, NAHOMY S 788.41 URINARY FREQUENCY 03/16/2014 KARISSA VALLE NAHOMY S 788.41 URINARY FREQUENCY 03/24/2014 KARISSA PROCESS IMPROVEMENT ENGINEER, NAHOMY S 477.0 ALLERGIC RHINITIS DUE TO POLLEN 03/24/2014 KARISSA PROCESS IMPROVEMENT ENGINEER, NAHOMY S 626.7 POSTCOITAL BLEEDING 03/24/2014 FLORENCE VALLE, KATELYN T 477.0 ALLERGIC RHINITIS DUE TO POLLEN 03/24/2014 FLORENCE VALLE, KATELYN T 626.7 POSTCOITAL BLEEDING 03/24/2014 DAVEY STEPHENSON MD 477.0 ALLERGIC RHINITIS DUE TO POLLEN 03/24/2014 DAVEY STEPHENSON MD 626.7 POSTCOITAL BLEEDING 03/24/2014 MARIALUISA DPM, ORLY 477.0 ALLERGIC RHINITIS DUE TO POLLEN 03/24/2014 MARIALUISA DPM, ORLY 626.7 POSTCOITAL BLEEDING 03/24/2014 KARISAS PROCESS IMPROVEMENT ENGINEER, NAHOMY S 477.0 ALLERGIC RHINITIS DUE TO POLLEN 03/24/2014 KARISSA PROCESS IMPROVEMENT ENGINEER, NAHOMY S 626.7 POSTCOITAL BLEEDING 03/24/2014 MARIALUISA DPM, ORLY 477.0 ALLERGIC RHINITIS DUE TO POLLEN 03/24/2014 MARIALUISA DPM, ORLY 626.7 POSTCOITAL BLEEDING 03/24/2014 KARISSA PROCESS IMPROVEMENT ENGINEER, NAHOMY S 477.0 ALLERGIC RHINITIS DUE TO POLLEN 03/24/2014 KARISSA PROCESS IMPROVEMENT ENGINEER, NAHOMY S 626.7 POSTCOITAL BLEEDING 03/24/2014 KARISSA PROCESS IMPROVEMENT ENGINEER, NAHOMY S 477.0 ALLERGIC RHINITIS DUE TO POLLEN 03/24/2014 KARISSA PROCESS IMPROVEMENT ENGINEER, NAHOMY S 626.7 POSTCOITAL BLEEDING 03/24/2014 KARISSA PROCESS IMPROVEMENT ENGINEER, NAHOMY S 477.0 ALLERGIC RHINITIS DUE TO POLLEN 03/24/2014 KARISSA PROCESS IMPROVEMENT ENGINEER, NAHOMY S 626.7 POSTCOITAL BLEEDING 04/15/2014 FLORENCE VALLE, KATELYN T 110.1 ONYCHOMYCOSIS 04/15/2014 DAVEY STEPHENSON MD 110.1 ONYCHOMYCOSIS 04/15/2014 MARIALUISA DPM, ORLY 110.1 ONYCHOMYCOSIS 04/15/2014 KARISSA PROCESS IMPROVEMENT ENGINEER, NAHOMY S 110.1 ONYCHOMYCOSIS 04/15/2014 MARIALUISA DPM, ORLY 110.1 ONYCHOMYCOSIS 04/15/2014 KARISSA PROCESS IMPROVEMENT ENGINEER, NAHOMY S 110.1 ONYCHOMYCOSIS 04/15/2014 KARISSA PROCESS IMPROVEMENT ENGINEER, NAHOMY S 110.1 ONYCHOMYCOSIS 04/15/2014 KARISSA PROCESS IMPROVEMENT ENGINEER, NAHOMY S 110.1 ONYCHOMYCOSIS 05/08/2014 SEEMA HOLLIDAY, DAVEY 465.9 ACUTE UPPER RESPIRATORY INFECTIONS OF UNSPECIFIED SITE 05/08/2014 MARIALUISA DPM, ORLY 465.9 ACUTE UPPER RESPIRATORY INFECTIONS OF UNSPECIFIED SITE 05/08/2014 KARISSA PROCESS IMPROVEMENT ENGINEER, NAHOMY S 465.9 ACUTE UPPER RESPIRATORY INFECTIONS OF UNSPECIFIED SITE 05/08/2014 MARIALUISA DPM, ORLY 465.9 ACUTE UPPER RESPIRATORY INFECTIONS OF UNSPECIFIED SITE 05/08/2014 KARISSA PROCESS IMPROVEMENT ENGINEER, NAHOMY S 465.9 ACUTE UPPER RESPIRATORY INFECTIONS OF UNSPECIFIED SITE 05/08/2014 KARISSA PROCESS IMPROVEMENT ENGINEER, NAHOMY S 465.9 ACUTE UPPER RESPIRATORY INFECTIONS OF UNSPECIFIED SITE 05/08/2014 KARISSA PROCESS IMPROVEMENT ENGINEER, NAHOMY S 465.9 ACUTE UPPER RESPIRATORY INFECTIONS OF UNSPECIFIED SITE 06/05/2014 MARIALUISA DPM, ORLY 703.8 ONYCHOCRYPTOSIS 06/05/2014 KARISSA PROCESS IMPROVEMENT ENGINEER, NAHOMY S 703.8 ONYCHOCRYPTOSIS 06/05/2014 MARIALUISA DPM, ORLY 703.8 ONYCHOCRYPTOSIS 06/05/2014 KARISSA PROCESS IMPROVEMENT ENGINEER, NAHOMY S 703.8 ONYCHOCRYPTOSIS 06/05/2014 KARISSA PROCESS IMPROVEMENT ENGINEER, NAHOMY S 703.8 ONYCHOCRYPTOSIS 06/05/2014 KARISSA PROCESS IMPROVEMENT ENGINEER, NAHOMY S 703.8 ONYCHOCRYPTOSIS 07/24/2014 KARISSA PROCESS IMPROVEMENT ENGINEER, NAHOMY S 734 FLAT FOOT 07/24/2014 KARISSA PROCESS IMPROVEMENT ENGINEER, NAHOMY S 734 FLAT FOOT 07/24/2014 KARISSA PROCESS IMPROVEMENT ENGINEER, NAHOMY S 734 FLAT FOOT 08/05/2014 KARISSA PROCESS IMPROVEMENT ENGINEER, NAHOMY S 461.9 SINUSITIS ACUTE 08/05/2014 KARISSA PROCESS IMPROVEMENT ENGINEER, NAHOMY S 784.0 HEADACHE 08/05/2014 KARISSA PROCESS IMPROVEMENT ENGINEER, NAHOMY S 461.9 SINUSITIS ACUTE 08/05/2014 KARISSA PROCESS IMPROVEMENT ENGINEER, NAHOMY S 784.0 HEADACHE 08/05/2014 NAHOMY HANCOCK APRN S 461.9 SINUSITIS ACUTE 08/05/2014 NAHOMY HANCOCK APRN S 784.0 HEADACHE 08/10/2014 Ot 793.81 08/10/2014 Ot V76.12 08/10/2014 Ot 793.81 08/10/2014 Ot 793.80 08/10/2014 Ot 616.2 08/10/2014 Ot V72.84 08/10/2014 Ot 733.90 08/10/2014 JOSIAS GUERRERO [employer]OOKING POLICE OFFICER Ot 793.80 08/10/2014 JOSIAS GUERREROP Ot V76.12 08/10/2014 JOSIAS GUERRERO BOOKING POLICE OFFICER Ot 793.80 08/10/2014 JOSIAS GUERRERO BOOKING POLICE OFFICER Ot 793.80 08/10/2014 JOSIAS GUERREROP Ot V67.9 08/10/2014 Ot 461.9 ACUTE SINUSITIS NOS 08/10/2014 Ot 780.4 DIZZINESS AND GIDDINESS 08/10/2014 Ot 787.01 NAUSEA WITH VOMITING 08/10/2014 Ot 793.81 08/10/2014 Ot V76.12 08/10/2014 Ot 793.81 08/10/2014 Ot 793.80 08/10/2014 Ot 616.2 08/10/2014 Ot V72.84 08/10/2014 Ot 733.90 08/10/2014 JOSIAS GUERREROP Ot 793.80 08/10/2014 JOSIAS GUERRERO BOOKING POLICE OFFICER Ot V76.12 08/10/2014 JOSIAS GUERRERO BOOKING POLICE OFFICER Ot 793.80 08/10/2014 JOSIAS GUERRERO BOOKING POLICE OFFICER Ot 793.80 08/10/2014 JOSIAS GUERREROP Ot V67.9 08/11/2014 NAHOMY HANCOCK APRN S 386.10 VERTIGO, PERIPHERAL UNSPECIFIED 08/11/2014 NAHOMY HANCOCK APRN S 386.10 VERTIGO, PERIPHERAL UNSPECIFIED 08/11/2014 NAHOMY HANCOCK APRN S 386.10 VERTIGO, PERIPHERAL UNSPECIFIED 08/11/2014 Ot 386.30 LABYRINTHITIS NOS 08/11/2014 Ot 780.4 DIZZINESS AND GIDDINESS 08/12/2014 Ot 300.00 ANXIETY STATE NOS 08/12/2014 Ot 461.9 ACUTE SINUSITIS NOS 08/12/2014 Ot 599.0 URIN TRACT INFECTION NOS 08/12/2014 Ot 787.02 NAUSEA ALONE 08/17/2014 Ot 288.60 LEUKOCYTOSIS , UNSPECIFIED 08/17/2014 Ot 300.00 ANXIETY STATE NOS 08/17/2014 Ot 305.1 TOBACCO USE DISORDER 08/17/2014 Ot 311 DEPRESSIVE DISORDER NEC 08/17/2014 Ot 722.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 08/17/2014 Ot 729.1 MYALGIA AND MYOSITIS NOS 08/17/2014 Ot 781.3 LACK OF COORDINATION 08/17/2014 Ot 787.01 NAUSEA WITH VOMITING 08/18/2014 NAHOMY HANCOCK APRN S 203.00 MULTIPLE MYELOMA WITHOUT MENTION OF HAVING ACHIEVED REMISSION 08/18/2014 LIDA HANCOCK APRNA S 203.00 MULTIPLE MYELOMA WITHOUT MENTION OF HAVING ACHIEVED REMISSION 08/18/2014 KRISTYN HANCOCK APRNNDA S 203.00 MULTIPLE MYELOMA WITHOUT MENTION OF HAVING ACHIEVED REMISSION 08/18/2014 LUKE PROSPER Shon Ot 780.4 DIZZINESS AND GIDDINESS 08/18/2014 PROSPER BUTLER DO Ot 784.0 HEADACHE 08/18/2014 LUKE DO PROSPER Shon Ot V15.81 HX OF PAST NONCOMPLIANCE 08/25/2014 Ot 386.11 BENIGN PARXYSMAL VERTIGO 08/25/2014 Ot 723.1 CERVICALGIA 08/25/2014 Ot 780.4 DIZZINESS AND GIDDINESS 08/25/2014 Ot V58.65 LONG-TERM( CURRENT)USE OF STEROIDS 08/25/2014 Ot V58.69 OTH MED,LT, CURRENT USE 09/02/2014 NAHOMY HANCOCK APRN S 723.0 SPINAL STENOSIS IN CERVICAL REGION 09/02/2014 NAHOMY HANCOCK APRN S 729.2 NEURALGIA NEURITIS AND RADICULITIS UNSPECIFIED 09/02/2014 LIDA HANCOCK APRNA S 723.0 SPINAL STENOSIS IN CERVICAL REGION 09/02/2014 NAHOMY HANCOCK APRN S 729.2 NEURALGIA NEURITIS AND RADICULITIS UNSPECIFIED 09/02/2014 NAHOMY HANCOCK APRN S 723.0 SPINAL STENOSIS IN CERVICAL REGION 09/02/2014 NAHOMY HANCOCK APRN S 729.2 NEURALGIA NEURITIS AND RADICULITIS UNSPECIFIED 09/07/2014 SUE GARCIA Nataliya Ot 203.00 10/12/2014 NAHOMY HANCOCK APRN S 724.09 SPINAL STENOSIS OF OTHER REGION 10/16/2014 Ot 793.81 10/16/2014 Ot V76.12 10/16/2014 Ot 793.81 10/16/2014 Ot 793.80 10/16/2014 Ot 616.2 10/16/2014 Ot V72.84 10/16/2014 Ot 733.90 10/16/2014 JOSIAS GUERRERO BOOKING POLICE OFFICER Ot 793.80 10/16/2014 JOSIAS GUERRERO BOOKING POLICE OFFICER Ot V76.12 10/16/2014 JOSIAS GUERRERO BOOKING POLICE OFFICER Ot 793.80 10/16/2014 JOSIAS GUERRERO BOOKING POLICE OFFICER Ot 793.80 10/16/2014 JOSIAS GUERRERO BOOKING POLICE OFFICER Ot V67.9 10/16/2014 SUE GARCIA Ot 203.00 10/16/2014 Ot 793.81 10/16/2014 Ot V76.12 10/16/2014 Ot 793.81 10/16/2014 Ot 793.80 10/16/2014 Ot 616.2 10/16/2014 Ot V72.84 10/16/2014 Ot 733.90 10/16/2014 JOSIAS GUERRERO BOOKING POLICE OFFICER Ot 793.80 10/16/2014 JOSIAS GUERRERO BOOKING POLICE OFFICER Ot V76.12 10/16/2014 JOSIAS GUERRERO BOOKING POLICE OFFICER Ot 793.80 10/16/2014 JOSIAS GUERRERO BOOKING POLICE OFFICER Ot 793.80 10/16/2014 JOSIAS GUERRERO BOOKING POLICE OFFICER Ot V67.9 10/16/2014 SUE GARCIA Ot 203.00 10/16/2014 Ot 793.81 10/16/2014 Ot V76.12 10/16/2014 Ot 793.81 10/16/2014 Ot 793.80 10/16/2014 Ot 616.2 10/16/2014 Ot V72.84 10/16/2014 Ot 733.90 10/16/2014 JOSIAS GUERREROP Ot 793.80 10/16/2014 JOSIAS GUERREROP Ot V76.12 10/16/2014 JOSIAS GUERREROP Ot 793.80 10/16/2014 JOSIAS GUERREROP Ot 793.80 10/16/2014 JOSIAS GUERREROP Ot V67.9 10/16/2014 SUE GARCIA Ot 203.00 10/17/2014 Ot 793.81 10/17/2014 Ot V76.12 10/17/2014 Ot 793.81 10/17/2014 Ot 793.80 10/17/2014 Ot 616.2 10/17/2014 Ot V72.84 10/17/2014 Ot 733.90 10/17/2014 JOSIAS GUERREROP Ot 793.80 10/17/2014 JOSIAS GUERREROP Ot V76.12 10/17/2014 JOSIAS GUERREROP Ot 793.80 10/17/2014 JOSIAS GUERREROP Ot 793.80 10/17/2014 JOSIAS GUERREROP Ot V67.9 10/17/2014 SUE GARCIA Ot 203.00 10/17/2014 BENITO KLEIN MD Ot 784.0 HEADACHE 10/17/2014 BENITO KLEIN MD Ot V58.65 LONG-TERM(CURRENT)USE OF STEROIDS 10/17/2014 BENITO KLEIN MD Ot V58.69 OT MED,LT,CURRENT USE 10/17/2014 Ot 793.81 10/17/2014 Ot V76.12 10/17/2014 Ot 793.81 10/17/2014 Ot 793.80 10/17/2014 Ot 616.2 10/17/2014 Ot V72.84 10/17/2014 Ot 733.90 10/17/2014 JOSIAS GUERREROP Ot 793.80 10/17/2014 JOSIAS GUERREROP Ot V76.12 10/17/2014 JOSIAS GUERREROP Ot 793.80 10/17/2014 JOSIAS GUERREROP Ot 793.80 10/17/2014 JOSIAS GUERREROP Ot V67.9 10/17/2014 SUE GARCIA N Ot 203.00 10/19/2014 Ot 793.81 10/19/2014 Ot V76.12 10/19/2014 Ot 793.81 10/19/2014 Ot 793.80 10/19/2014 Ot 616.2 10/19/2014 Ot V72.84 10/19/2014 Ot 733.90 10/19/2014 JOSIAS GUERREROP Ot 793.80 10/19/2014 JOSIAS GUERREROP Ot V76.12 10/19/2014 JOSIAS GUERRERO BOOKING POLICE OFFICER Ot 793.80 10/19/2014 JOSIAS GUERREROP Ot 793.80 10/19/2014 JOSIAS GUERREROP Ot V67.9 10/19/2014 SUE GARCIA N Ot 203.00 10/19/2014 SUE GARCIA N Ot 203.00 10/20/2014 Ot 793.81 10/20/2014 Ot V76.12 10/20/2014 Ot 793.81 10/20/2014 Ot 793.80 10/20/2014 Ot 616.2 10/20/2014 Ot V72.84 10/20/2014 Ot 733.90 10/20/2014 JOSIAS GUERREROP Ot 793.80 10/20/2014 JOSIAS GUERREROP Ot V76.12 10/20/2014 JOSIAS GUERREROP Ot 793.80 10/20/2014 JOSIAS GUERRERO BOOKING POLICE OFFICER Ot 793.80 10/20/2014 JOSIAS GUERRERO BOOKING POLICE OFFICER Ot V67.9 10/20/2014 SUE GARCIA N Ot 203.00 10/20/2014 PROSPER BUTLER DO Ot 307.81 TENSION HEADACHE 10/20/2014 PROSPER BUTLER DO Ot 338.29 OTHER CHRONIC PAIN 10/20/2014 PROSPER BUTLER DO Ot 599.0 URIN TRACT INFECTION NOS 10/20/2014 PROSPER BUTLER DO Ot 780.4 DIZZINESS AND GIDDINESS 10/20/2014 PROSPER BUTLER DO Ot 787.02 NAUSEA ALONE 10/26/2014 SUE GARCIA Nataliya Ot 203.00 11/17/2014 SUE GARCIA Ot 203.00 MULTIPLE MYELOMA, W/O MENTION OF HAVING 12/31/2014 Ot 793.81 12/31/2014 Ot V76.12 12/31/2014 Ot 793.81 12/31/2014 Ot 793.80 12/31/2014 Ot 616.2 12/31/2014 Ot V72.84 12/31/2014 Ot 733.90 12/31/2014 JOSIAS GUERRERO BOOKING POLICE OFFICER Ot 793.80 12/31/2014 JOSIAS GUERRERO BOOKING POLICE OFFICER Ot V76.12 12/31/2014 JOSIAS GUERRERO BOOKING POLICE OFFICER Ot 793.80 12/31/2014 JOSIAS GUERRERO BOOKING POLICE OFFICER Ot 793.80 12/31/2014 JOSIAS GUERRERO BOOKING POLICE OFFICER Ot V67.9 12/31/2014 SHAHID HOLLIDAY, MUSEYVONNE Ot 203.00 01/13/2015 KYLE CHAVEZ DO Ot V76.12 01/22/2015 TEE KHANNA DO Ot 305.1 TOBACCO USE DISORDER 01/22/2015 TEE KHANNA DO Ot 308.1 STRESS REACTION, FUGUE 01/22/2015 TEE KHANNA DO Ot 401.9 HYPERTENSION NOS 01/22/2015 TEE KHANNA DO Ot 729.1 MYALGIA AND MYOSITIS NOS 01/22/2015 TEE KHANNA DO Ot 799.3 DEBILITY NOS 01/22/2015 GELTEE QUINN DO Ot V58.78 AFTERCARE POST SURGERY MUSCULOSKELETAL S 01/22/2015 TEE KHANNA DO Ot 305.1 01/22/2015 TEE KHANNA DO Ot 308.1 01/22/2015 TEE KHANNA DO Ot 401.9 01/22/2015 TEE KHANNA DO Ot 729.1 01/22/2015 TEE KHANNA DO Ot 799.3 01/22/2015 TEE KHANNA DO Ot V58.78 03/02/2015 MORRO HOLLIDAY, ANDREY Oconnor Ot 723.1 03/02/2015 MORRO HOLLIDAY, ANDREY Oconnor Ot V57.1 03/17/2015 MORRO HOLLIDAY, ANDREY Oconnor Ot 723.1 CERVICALGIA 03/17/2015 MORRO HOLLIDAY, ANDREY Oconnor Ot V57.1 PHYSICAL THERAPY NEC 03/29/2015 MORRO HOLLIDAY, ANDREY Oconnor Ot 723.1 03/29/2015 MORRO HOLLIDAY, ANDREY Oconnor Ot V57.1 04/08/2015 MORRO HOLLIDAY, ANDREY Oconnor Ot M54.2 04/15/2015 MORRO HOLLIDAY, ANDREY Oconnor Ot M54.2 04/28/2015 MORRO HOLLIDAY, ANDREY Oconnor Ot M54.2 04/29/2015 MORRO HOLLIDAY, ANDREY Oconnor Ot M54.2 CERVICALGIA 05/18/2015 KYLE CHAVEZ DO Ot N81.89 05/18/2015 KYLE CHAVEZ DO Ot Z01.812 05/18/2015 KYLE CHAVEZ DO Ot Z11.2 05/20/2015 KYLE CHAVEZ DO Ot D62 ACUTE POSTHEMORRHAGIC ANEMIA 05/20/2015 KYLE CHAVEZ DO Ot N39.3 STRESS INCONTINENCE (FEMALE) (MALE) 05/20/2015 KYLE CHAVEZ DO Ot 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, MIDLINE 05/20/2015 KYLE CHAVEZ DO Ot N81.6 RECTOCELE 05/20/2015 KYLE CHAVEZ DO Ot N81.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 05/20/2015 KYLE CHAVEZ DO Ot N99.820 POSTPROC HEMOR/HEMTOM OF A SYS ORG FO 05/20/2015 KYLE CHAVEZ DO Ot T83.721A EXPOSURE OF IMPLNT VAG PRSTHT MTRL INTO 05/23/2015 QI MACHUCA Ot F17.210 NICOTINE DEPENDENCE, CIGARETTES, UNCOMPL 05/23/2015 QI MACHUCA Ot N39.0 URINARY TRACT INFECTION, SITE NOT SPECIF 05/23/2015 QI MACHUCA Ot R33.9 RETENTION OF URINE, UNSPECIFIED 05/23/2015 QI MACHUCA Ot Z98.89 OTHER SPECIFIED POSTPROCEDURAL STATES 07/08/2015 Ot F17.210 NICOTINE DEPENDENCE, CIGARETTES, UNCOMPL 07/08/2015 Ot 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 07/08/2015 Ot W18.00XA STRIKING AGAINST UNSP OBJECT W SUBSEQUEN 07/08/[address] IN UNSP NON-INSTITUT (PRIVATE 07/08/2015 Ot Y99.8 OTHER EXTERNAL CAUSE STATUS 07/08/2015 Ot Z23 ENCOUNTER FOR IMMUNIZATION 07/28/2015 SHAHID HOLLIDAY, YULIANA Ot 203.00 08/09/2015 SHAHID HOLLIDAY, YULIANA Ot 203.00 08/27/2015 SHAHID HOLLIDAY, YULIANA Ot D47.2 08/27/2015 SHAHID HOLLIDAY, YULIANA Ot F17.210 08/27/2015 SHAHID HOLLIDAY, YULIANA Ot F32.9 08/27/2015 SHAHID HOLLIDAY, YULIANA Ot F41.9 08/27/2015 SHAHID HOLLIDAY, YULIANA Ot M79.7 08/27/2015 SHAHID HOLLIDAY, YULIANA Ot Z79.899 11/04/2015 SHAHID HOLLIDAY, YULIANA Ot D47.2 MONOCLONAL GAMMOPATHY 11/04/2015 YULIANA KEY MD Ot F17.210 NICOTINE DEPENDENCE, CIGARETTES, UNCOMPL 11/04/2015 YULIANA KEY MD Ot F32.9 MAJOR DEPRESSIVE DISORDER, SINGLE EPISOD 11/04/2015 SHAHID HOLLIDAY, YULIANA Ot F41.9 ANXIETY DISORDER, UNSPECIFIED 11/04/2015 SHAHID HOLLIDAY, YULIANA Ot M79.7 FIBROMYALGIA 11/04/2015 SHAHID HOLLIDAY, YULIANA Ot Z79.899 OTHER CROSS CUT SAW OPERATOR (CURRENT) DRUG THERAPY 11/10/2015 SHAHID HOLLIDAY, YULIANA Ot D47.2 MONOCLONAL GAMMOPATHY 11/10/2015 SHAHID HOLLIDAY, YULIANA Ot F17.210 NICOTINE DEPENDENCE, CIGARETTES, UNCOMPL 11/10/2015 SHAHID HOLLIDAY, YULIANA Ot F32.9 MAJOR DEPRESSIVE DISORDER, SINGLE EPISOD 11/10/2015 SHAHID HOLLIDAY, YULIANA Ot F41.9 ANXIETY DISORDER, UNSPECIFIED 11/10/2015 SHAHID HOLLIDAY, YULIANA Ot M79.7 FIBROMYALGIA 11/10/2015 SHAHID HOLLIDAY, YULIANA Ot Z79.899 OTHER CROSS CUT SAW OPERATOR (CURRENT) DRUG THERAPY 01/20/2016 Ot 793.81 MAMMOGRAPHIC MICROCLACIFICATION 01/20/2016 Ot V76.12 OTH SCREEN MAMMO-MALIGN NEOPLASM OF JOHN 01/20/2016 Ot 793.81 MAMMOGRAPHIC MICROCLACIFICATION 01/20/2016 Ot 793.80 UNSPEC ABNORMAL MAMMOGRAM 01/20/2016 Ot 616.2 BARTHOLIN'S GLAND CYST 01/20/2016 Ot V72.84 EXAM PRE- OPERATIVE NOS 01/20/2016 Ot 733.90 BONE CARTILAGE DIS NOS 01/20/2016 JOSIAS GUERRERO BOOKING POLICE OFFICER Ot 793.80 UNSPEC ABNORMAL MAMMOGRAM 01/20/2016 JOSIAS GUERRERO BOOKING POLICE OFFICER Ot V76.12 OTH SCREEN MAMMO-MALIGN NEOPLASM OF JOHN 01/20/2016 JOSIAS GUERRERO BOOKING POLICE OFFICER Ot 793.80 UNSPEC ABNORMAL MAMMOGRAM 01/20/2016 JOSIAS GUERRERO BOOKING POLICE OFFICER Ot 793.80 UNSPEC ABNORMAL MAMMOGRAM 01/20/2016 JOSIAS GUERREROP Ot V67.9 FOLLOW-UP EXAM NOS 01/20/2016 KYLE CHAVEZ DO Ot V76.12 OT SCREEN MAMMO-MALIGN NEOPLASM OF JOHN 01/20/2016 KYLE CHAVEZ DO Ot N81.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 01/20/2016 KYLE CHAVEZ DO Ot Z01.812 ENCOUNTER FOR PREPROCEDURAL LABORATORY E 01/20/2016 KYLE CHAVEZ DO Ot Z11.2 ENCOUNTER FOR SCREENING FOR OTHER BACTER 01/20/2016 YULIANA KEY MD Ot D47.2 MONOCLONAL GAMMOPATHY 01/20/2016 YULIANA KEY MD Ot F17.210 NICOTINE DEPENDENCE, CIGARETTES, UNCOMPL 01/20/2016 YULIANA KEY MD Ot F32.9 MAJOR DEPRESSIVE DISORDER, SINGLE EPISOD 01/20/2016 YULIANA KEY MD Ot F41.9 ANXIETY DISORDER, UNSPECIFIED 01/20/2016 YULIANA KEY MD Ot M79.7 FIBROMYALGIA 01/20/2016 YULIANA KEY MD Ot Z79.899 OTHER CROSS CUT SAW OPERATOR (CURRENT) DRUG THERAPY 01/21/2016 KYLE CHAVEZ DO Ot Z12.31 ENCNTR SCREEN MAMMOGRAM FOR MALIGNANT NE 01/24/2016 KYLE CHAVEZ DO, Ot Z12.31 ENCNTR SCREEN MAMMOGRAM FOR MALIGNANT NE 02/07/2016 Ot 793.81 MAMMOGRAPHIC MICROCLACIFICATION 02/07/2016 Ot V76.12 OTH SCREEN MAMMO-MALIGN NEOPLASM OF JOHN 02/07/2016 Ot 793.81 MAMMOGRAPHIC MICROCLACIFICATION 02/07/2016 Ot 793.80 UNSPEC ABNORMAL MAMMOGRAM 02/07/2016 Ot 616.2 BARTHOLIN'S GLAND CYST 02/07/2016 Ot V72.84 EXAM PRE- OPERATIVE NOS 02/07/2016 Ot 733.90 BONE CARTILAGE DIS NOS 02/07/2016 JOSIAS GUERRERO BOOKING POLICE OFFICER Ot 793.80 UNSPEC ABNORMAL MAMMOGRAM 02/07/2016 JOSIAS GUERRERO BOOKING POLICE OFFICER Ot V76.12 OTH SCREEN MAMMO-MALIGN NEOPLASM OF JOHN 02/07/2016 JOSIAS GUERRERO BOOKING POLICE OFFICER Ot 793.80 UNSPEC ABNORMAL MAMMOGRAM 02/07/2016 JOSIAS GUERRERO BOOKING POLICE OFFICER Ot 793.80 UNSPEC ABNORMAL MAMMOGRAM 02/07/2016 JOSIAS GUERRERO BOOKING POLICE OFFICER Ot V67.9 FOLLOW-UP EXAM NOS 02/07/2016 KYLE CHAVEZ DO Ot V76.12 OTH SCREEN MAMMO-MALIGN NEOPLASM OF JOHN 02/07/2016 KYLE CHAVEZ DO Ot N81.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 02/07/2016 KYLE CHAVEZ DO Ot Z01.812 ENCOUNTER FOR PREPROCEDURAL LABORATORY E 02/07/2016 KYLE CHAVEZ DO Ot Z11.2 ENCOUNTER FOR SCREENING FOR OTHER BACTER 02/07/2016 YULIANA KEY MD Ot D47.2 MONOCLONAL GAMMOPATHY 02/07/2016 YULIANA KEY MD Ot F17.210 NICOTINE DEPENDENCE, CIGARETTES, UNCOMPL 02/07/2016 YULIANA KEY MD Ot F32.9 MAJOR DEPRESSIVE DISORDER, SINGLE EPISOD 02/07/2016 YULIANA KEY MD Ot F41.9 ANXIETY DISORDER, UNSPECIFIED 02/07/2016 YULIANA KEY MD Ot M79.7 FIBROMYALGIA 02/07/2016 YULIANA KEY MD Ot Z79.899 OTHER LONGTERM (CURRENT) DRUG THERAPY 02/07/2016 KYLE CHAVEZ DO Ot Z12.31 ENCNTR SCREEN MAMMOGRAM FOR MALIGNANT NE 02/29/2016 KATYH AGUILA, KYLE C Ot Z12.31 ENCNTR SCREEN MAMMOGRAM FOR MALIGNANT NE 04/24/2016 DEMETRIUS RUBIO APRN Ot I10 ESSENTIAL (PRIMARY) HYPERTENSION 04/24/2016 DEMETRIUS RUBIO APRN Ot N12 TUBULO-INTERSTITIAL NEPHRITIS, NOT SPCF 04/24/2016 DEMETRIUS RUBIO APRN Ot R31.9 HEMATURIA, UNSPECIFIED 04/24/2016 DEMETRIUS RUBIO APRN Ot Z79.899 OTHER CROSS CUT SAW OPERATOR (CURRENT) DRUG THERAPY 04/25/2016 ANDREW HOLLIDAY, THO T Ot F17.210 NICOTINE DEPENDENCE, CIGARETTES, UNCOMPL 04/25/2016 ANDREW HOLLIDAY, THO T Ot N39.0 URINARY TRACT INFECTION, SITE NOT SPECIF 04/25/2016 THO MORALES MD T Ot Z79.899 OTHER CROSS CUT SAW OPERATOR (CURRENT) DRUG THERAPY 04/25/2016 DEMETRIUS RUBIO APRN Ot I10 ESSENTIAL (PRIMARY) HYPERTENSION 04/25/2016 DEMETRIUS RUBIO APRN Ot N12 TUBULO-INTERSTITIAL NEPHRITIS, NOT SPCF 04/25/2016 DEMETRIUS RUBIO APRN Ot R31.9 HEMATURIA, UNSPECIFIED 04/25/2016 DEMETRIUS RUBIO APRN Ot Z79.899 OTHER LONGTERM (CURRENT) DRUG THERAPY 04/26/2016 ANDREW HOLLIDAY, THO T Ot F17.210 NICOTINE DEPENDENCE, CIGARETTES, UNCOMPL 04/26/2016 ANDREW HOLLIDAY, THO T Ot N39.0 URINARY TRACT INFECTION, SITE NOT SPECIF 04/26/2016 ANDREW HOLLIDAY, THO T Ot Z79.899 OTHER LONGTERM (CURRENT) DRUG THERAPY 04/27/2016 DEMETRIUS RUBIO PROCESS IMPROVEMENT ENGINEER Ot I10 ESSENTIAL (PRIMARY) HYPERTENSION 04/27/2016 DEMETRIUS RUBIO APRN Ot N12 TUBULO-INTERSTITIAL NEPHRITIS, NOT SPCF 04/27/2016 DEMETRIUS RUBIO PROCESS IMPROVEMENT ENGINEER Ot R31.9 HEMATURIA, UNSPECIFIED 04/27/2016 DEMETRIUS RUBIO PROCESS IMPROVEMENT ENGINEER Ot Z79.899 OTHER CROSS CUT SAW OPERATOR (CURRENT) DRUG THERAPY 04/27/2016 ANDREW HOLLIDAY, THO T Ot F17.210 NICOTINE DEPENDENCE, CIGARETTES, UNCOMPL 04/27/2016 THO MORALES MD T Ot N39.0 URINARY TRACT INFECTION, SITE NOT SPECIF 04/27/2016 THO MORALES MD T Ot Z79.899 OTHER CROSS CUT SAW OPERATOR (CURRENT) DRUG THERAPY 05/03/2016 THO MORALES MD T Ot F17.210 NICOTINE DEPENDENCE, CIGARETTES, UNCOMPL 05/03/2016 THO MORALES MD T Ot N39.0 URINARY TRACT INFECTION, SITE NOT SPECIF 05/03/2016 THO MORALES MD T Ot Z79.899 OTHER LONGTERM (CURRENT) DRUG THERAPY 05/04/2016 DEMETRIUS RUBIO PROCESS IMPROVEMENT ENGINEER Ot I10 ESSENTIAL (PRIMARY) HYPERTENSION 05/04/2016 DEMETRIUS RUBIO PROCESS IMPROVEMENT ENGINEER Ot N12 TUBULO-INTERSTITIAL NEPHRITIS, NOT SPCF 05/04/2016 DEMETRIUS RUBIO PROCESS IMPROVEMENT ENGINEER Ot R31.9 HEMATURIA, UNSPECIFIED 05/04/2016 DEMETRIUS RUBIO PROCESS IMPROVEMENT ENGINEER Ot Z79.899 OTHER CROSS CUT SAW OPERATOR (CURRENT) DRUG THERAPY 05/19/2016 NAHOMY HANCOCK BOOKING POLICE OFFICER Ot R10.11 RIGHT UPPER QUADRANT PAIN 05/19/2016 KARISSALIDA WHITEA BOOKING POLICE OFFICER Ot R10.11 RIGHT UPPER QUADRANT PAIN 05/23/2016 LIDA HANCOCKA BOOKING POLICE OFFICER Ot R10.11 RIGHT UPPER QUADRANT PAIN 05/24/2016 KARISSALIDA WHITEA BOOKING POLICE OFFICER Ot R10.11 RIGHT UPPER QUADRANT PAIN 05/30/2016 NAHOMY HANCOCK BOOKING POLICE OFFICER Ot R10.11 RIGHT UPPER QUADRANT PAIN 08/08/2016 SARAH NG MD Ot M48.02 SPINAL STENOSIS, CERVICAL REGION 08/08/2016 SARAH NG MD R Ot M79.1 MYALGIA 08/08/2016 SARAH NG MD R Ot Z98.1 ARTHRODESIS STATUS 08/08/2016 SARAH NG MD Ot M48.02 SPINAL STENOSIS, CERVICAL REGION 08/08/2016 SARAH NG MD R Ot M79.1 MYALGIA 08/08/2016 SARAH NG MD Ot Z98.1 ARTHRODESIS STATUS 09/05/2016 SARAH NG MD Ot M48.02 SPINAL STENOSIS, CERVICAL REGION 09/05/2016 BERENICE HOLLIDAY, MCCASEY R Ot M79.1 MYALGIA 09/05/2016 BERENICE HOLLIDAY, ANAASEKarla R Ot Z98.1 ARTHRODESIS STATUS 09/07/2016 SARAH NG MD R Ot M48.02 SPINAL STENOSIS, CERVICAL REGION 09/07/2016 BERENICE HOLLIDAY, ANAASEKarla R Ot M79.1 MYALGIA 09/07/2016 SARHA NG MD R Ot Z98.1 ARTHRODESIS STATUS 09/11/2016 BERENICE HOLLIDAY MCCASEKarla R Ot M48.02 SPINAL STENOSIS, CERVICAL REGION 09/11/2016 ANA NG MDASEKarla R Ot M79.1 MYALGIA 09/11/2016 SARAH NG MD R Ot Z98.1 ARTHRODESIS STATUS 09/20/2016 SARAH NG MD R Ot M48.02 SPINAL STENOSIS, CERVICAL REGION 09/20/2016 SARAH NG MD R Ot M79.1 MYALGIA 09/20/2016 SARAH NG MD R Ot Z98.1 ARTHRODESIS STATUS 09/21/2016 JONH HOLLIDAY, MIGUEL K Ot M47.12 OTHER SPONDYLOSIS WITH MYELOPATHY, CERVI 09/21/2016 JONH HOLLIDAY, MIGUEL K Ot R27.0 ATAXIA, UNSPECIFIED 09/21/2016 JONH HOLLIDAY, MIGUEL K Ot M47.12 OTHER SPONDYLOSIS WITH MYELOPATHY, CERVI 09/21/2016 JONH HOLLIDAY, MIGUEL K Ot R27.0 ATAXIA, UNSPECIFIED 09/21/2016 JONH HOLLIDAY MIGUEL K Ot M47.12 OTHER SPONDYLOSIS WITH MYELOPATHY, CERVI 09/21/2016 JONH HOLLIDAY MIGUEL K Ot R27.0 ATAXIA, UNSPECIFIED 09/29/2016 JONH HOLLIDAY MIGUEL K Ot M47.12 OTHER SPONDYLOSIS WITH MYELOPATHY, CERVI 09/29/2016 JONH HOLLIDAY, MIGUEL K Ot R27.0 ATAXIA, UNSPECIFIED 09/29/2016 ANA NG MDASEKarla R Ot M48.02 SPINAL STENOSIS, CERVICAL REGION 09/29/2016 ANA NG MDASEKarla R Ot M79.1 MYALGIA 09/29/2016 ANA NG MDASEKarla R Ot Z98.1 ARTHRODESIS STATUS 10/06/2016 SARAH NG MD R Ot M48.02 SPINAL STENOSIS, CERVICAL REGION 10/06/2016 SARAH NG MD R Ot M79.1 MYALGIA 10/06/2016 SARAH NG MD R Ot Z98.1 ARTHRODESIS STATUS 10/06/2016 MIGUEL BORJA MD K Ot M47.12 OTHER SPONDYLOSIS WITH MYELOPATHY, CERVI 10/06/2016 MIGUEL BORJA MD K Ot R27.0 ATAXIA, UNSPECIFIED 10/09/2016 SARAH NG MD R Ot M48.02 SPINAL STENOSIS, CERVICAL REGION 10/09/2016 SARAH NG MD R Ot M79.1 MYALGIA 10/09/2016 SARAH NG MD R Ot Z98.1 ARTHRODESIS STATUS 10/13/2016 MIGUEL BORJA MD K Ot M47.12 OTHER SPONDYLOSIS WITH MYELOPATHY, CERVI 10/13/2016 MIGUEL BOJRA MD K Ot R27.0 ATAXIA, UNSPECIFIED 10/23/2016 KATELYN SHIRLEY DO, Ot F17.210 NICOTINE DEPENDENCE, CIGARETTES, UNCOMPL 10/23/2016 KATELYN SHIRLEY DO Ot I10 ESSENTIAL (PRIMARY) HYPERTENSION 10/23/2016 KATELYN SHIRLEY DO Ot M48.02 SPINAL STENOSIS, CERVICAL REGION 10/23/2016 KATELYN SHIRLEY DO Ot M54.12 RADICULOPATHY, CERVICAL REGION 10/23/2016 KATELYN SHIRLEY DO, Ot M79.602 PAIN IN LEFT ARM 10/23/2016 KATELYN SHIRLEY DO, Ot Z79.899 OTHER LONGTERM (CURRENT) DRUG THERAPY 10/24/2016 SARAH NG MD R Ot M48.02 SPINAL STENOSIS, CERVICAL REGION 10/24/2016 SARAH NG MD R Ot M79.1 MYALGIA 10/24/2016 SARAH NG MD R Ot Z98.1 ARTHRODESIS STATUS 10/25/2016 KATELYN SHIRLEY DO Ot F17.210 NICOTINE DEPENDENCE, CIGARETTES, UNCOMPL 10/25/2016 KATELYN SHIRLEY DO Ot I10 ESSENTIAL (PRIMARY) HYPERTENSION 10/25/2016 KATELYN SHIRLEY DO Ot M48.02 SPINAL STENOSIS, CERVICAL REGION 10/25/2016 KATELYN SHIRLEY DO Ot M54.12 RADICULOPATHY, CERVICAL REGION 10/25/2016 KATELYN SHIRLEY DO Ot M79.602 PAIN IN LEFT ARM 10/25/2016 KATELYN SHIRLEY DO, Ot Z79.899 OTHER LONGTERM (CURRENT) DRUG THERAPY 10/25/2016 SARAH NG MD Ot M48.02 SPINAL STENOSIS, CERVICAL REGION 10/25/2016 SARAH NG MD R Ot M79.1 MYALGIA 10/25/2016 SARAH NG MD R Ot Z98.1 ARTHRODESIS STATUS 10/26/2016 SARAH NG MD R Ot M48.02 SPINAL STENOSIS, CERVICAL REGION 10/26/2016 SARAH NG MD R Ot M79.1 MYALGIA 10/26/2016 SARAH NG MD R Ot Z98.1 ARTHRODESIS STATUS 10/27/2016 SARAH NG MD Ot M48.02 SPINAL STENOSIS, CERVICAL REGION 10/27/2016 SARAH NG MD R Ot M79.1 MYALGIA 10/27/2016 SARAH NG MD R Ot Z98.1 ARTHRODESIS STATUS 11/03/2016 YULIANA KEY MD Ot D47.2 MONOCLONAL GAMMOPATHY 11/03/2016 YULIANA KEY MD Ot F17.210 NICOTINE DEPENDENCE, CIGARETTES, UNCOMPL 11/03/2016 YULIANA KEY MD Ot F32.9 MAJOR DEPRESSIVE DISORDER, SINGLE EPISOD 11/03/2016 YULIANA KEY MD, Ot F41.9 ANXIETY DISORDER, UNSPECIFIED 11/03/2016 YULIANA KEY MD Ot M79.7 FIBROMYALGIA 11/03/2016 YULIANA KEY MD Ot Z79.899 OTHER CROSS CUT SAW OPERATOR (CURRENT) DRUG THERAPY 11/20/2016 RAEANN THOMAS Ot N30.01 ACUTE CYSTITIS WITH HEMATURIA 11/20/2016 RAEANN THOMAS Ot N30.01 ACUTE CYSTITIS WITH HEMATURIA 11/21/2016 KATELYN SIHRLEY DO, Ot F17.210 NICOTINE DEPENDENCE, CIGARETTES, UNCOMPL 11/21/2016 KATELYN SHIRLEY DO Ot I10 ESSENTIAL (PRIMARY) HYPERTENSION 11/21/2016 KATELYN SHIRLEY DO, Ot M48.02 SPINAL STENOSIS, CERVICAL REGION 11/21/2016 KATELYN SHIRLEY DO Ot M54.12 RADICULOPATHY, CERVICAL REGION 11/21/2016 KATELYN SHIRLEY DO, Ot M79.602 PAIN IN LEFT ARM 11/21/2016 KATELYN SHIRLEY DO Ot Z79.899 OTHER CROSS CUT SAW OPERATOR (CURRENT) DRUG THERAPY 11/25/2016 EDY, GREG BOOKING [employer] OFFICER Ot F17.210 NICOTINE DEPENDENCE, CIGARETTES, UNCOMPL 11/25/2016 EDY, GREG [employer]ING [employer] OFFICER Ot K21.9 GASTRO-ESOPHAGEAL REFLUX DISEASE WITHOUT 11/25/2016 EDY, GREG [employer]ING POLICE OFFICER Ot R33.9 RETENTION OF URINE, UNSPECIFIED 11/25/2016 EDY, GREG [employer]ING POLICE OFFICER Ot Z98.890 OTHER SPECIFIED POSTPROCEDURAL STATES 11/27/2016 EDY, GREG [employer]ING POLICE OFFICER Ot F17.210 NICOTINE DEPENDENCE, CIGARETTES, UNCOMPL 11/27/2016 EDY, GREG [employer]ING POLICE OFFICER Ot K21.9 GASTRO-ESOPHAGEAL REFLUX DISEASE WITHOUT 11/27/2016 EDY, GREG BOOKING POLICE OFFICER Ot R33.9 RETENTION OF URINE, UNSPECIFIED 11/27/2016 EDY, GREG B[employer]ING POLICE OFFICER Ot Z98.890 OTHER SPECIFIED POSTPROCEDURAL STATES 11/30/2016 RAEANN THOMAS [employer]ING POLICE OFFICER Ot N30.01 ACUTE CYSTITIS WITH HEMATURIA 12/01/2016 JOHNATHON HOLLIDAY, RANI Sena Ot F17.210 NICOTINE DEPENDENCE, CIGARETTES, UNCOMPL 12/01/2016 JOHNATHON HOLLIDAY, RANI Sena Ot I10 ESSENTIAL (PRIMARY) HYPERTENSION 12/01/2016 RANI DIEGO MD Ot N39.0 URINARY TRACT INFECTION, SITE NOT SPECIF 12/01/2016 RANI DIEGO MD Ot R30.0 DYSURIA 12/01/2016 RANI DIEGO MD Ot Z85.43 PERSONAL HISTORY OF MALIGNANT NEOPLASM O 12/01/2016 RANI DIEGO MD Ot Z87.19 PERSONAL HISTORY OF OTHER DISEASES OF TH 12/01/2016 JOHNATHON HOLLIDAY, RANI Sena Ot Z90.49 ACQUIRED ABSENCE OF OTHER SPECIFIED PART 12/01/2016 RANI DIEGO MD Ot Z90.710 ACQUIRED ABSENCE OF BOTH CERVIX AND UTER 12/03/2016 EDY, GREG [employer]ING POLICE OFFICER Ot F17.210 NICOTINE DEPENDENCE, CIGARETTES, UNCOMPL 12/03/2016 EDY, GREG B[employer]ING POLICE OFFICER Ot K21.9 GASTRO-ESOPHAGEAL REFLUX DISEASE WITHOUT 12/03/2016 EDY, GREG [employer]ING POLICE OFFICER Ot R33.9 RETENTION OF URINE, UNSPECIFIED 12/03/2016 EDY, GREG [employer]ING POLICE OFFICER Ot Z98.890 OTHER SPECIFIED POSTPROCEDURAL STATES 12/04/2016 MIGUEL BORJA MD Ot M47.12 OTHER SPONDYLOSIS WITH MYELOPATHY, CERVI 12/04/2016 JONH HOLLIDAY, MIGUEL Menendez Ot R27.0 ATAXIA, UNSPECIFIED 02/20/2017 Ot 793.80 UNSPEC ABNORMAL MAMMOGRAM 02/20/2017 Ot 616.2 BARTHOLIN'S GLAND CYST 02/20/2017 Ot V72.84 EXAM PRE- OPERATIVE NOS 02/20/2017 Ot 733.90 BONE CARTILAGE DIS NOS 02/20/2017 JOSIAS GUERRERO [employer]OOKING POL[employer] OFFICER Ot 793.80 UNSPEC ABNORMAL MAMMOGRAM 02/20/2017 JOSIAS GUERREROP Ot V76.12 OTH SCREEN MAMMO-MALIGN NEOPLASM OF JOHN 02/20/2017 JOSIAS GUERRERO [employer]ING POLICE OFFICER Ot 793.80 UNSPEC ABNORMAL MAMMOGRAM 02/20/2017 JOSIAS GUERREROP Ot 793.80 UNSPEC ABNORMAL MAMMOGRAM 02/20/2017 JOSIAS GUERREROP Ot V67.9 FOLLOW-UP EXAM NOS 02/20/2017 KYLE CHAVEZ DO Ot V76.12 OTH SCREEN MAMMO-MALIGN NEOPLASM OF JOHN 02/20/2017 KYLE CHAVEZ DO Ot N81.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 02/20/2017 KYLE CHAVEZ DO Ot Z01.812 ENCOUNTER FOR PREPROCEDURAL LABORATORY E 02/20/2017 KYLE CHAVEZ DO Ot Z11.2 ENCOUNTER FOR SCREENING FOR OTHER BACTER 02/20/2017 YULIANA KEY MD Ot D47.2 MONOCLONAL GAMMOPATHY 02/20/2017 YULIANA KEY MD Ot F17.210 NICOTINE DEPENDENCE, CIGARETTES, UNCOMPL 02/20/2017 YULIANA KEY MD Ot F32.9 MAJOR DEPRESSIVE DISORDER, SINGLE EPISOD 02/20/2017 YULIANA KEY MD Ot F41.9 ANXIETY DISORDER, UNSPECIFIED 02/20/2017 YULIANA KEY MD Ot M79.7 FIBROMYALGIA 02/20/2017 YULIANA KEY MD, Ot Z79.899 OTHER LONGTERM (CURRENT) DRUG THERAPY 02/20/2017 KYLE CHAVEZ DO Ot Z12.31 ENCNTR SCREEN MAMMOGRAM FOR MALIGNANT NE 02/20/2017 NAHOMY HANCOCK Ot R10.11 RIGHT UPPER QUADRANT PAIN 02/20/2017 JONH HOLLIDAY, MIGUEL Menendez Ot M47.12 OTHER SPONDYLOSIS WITH MYELOPATHY, CERVI 02/20/2017 JONH HOLLIDAY, MIGUEL Menendez Ot R27.0 ATAXIA, UNSPECIFIED 02/20/2017 JONH HOLLIDAY, MIGUEL Menendez Ot M47.12 OTHER SPONDYLOSIS WITH MYELOPATHY, CERVI 02/20/2017 JONH HOLLIDAY, MIGUEL Menendez Ot R27.0 ATAXIA, UNSPECIFIED 02/20/2017 CAIT HOLLIDAY, ADRIAN Oconnor Ot Z01.818 ENCOUNTER FOR OTHER PREPROCEDURAL EXAMIN 02/20/2017 CAIT HOLLIDAY, ADRIAN Oconnor Ot Z86.010 PERSONAL HISTORY OF COLONIC POLYPS 02/20/2017 RAEANN THOMAS Ot N30.01 ACUTE CYSTITIS WITH HEMATURIA 02/20/2017 NAHOMY HANCOCK Ot Z12.31 ENCNTR SCREEN MAMMOGRAM FOR MALIGNANT NE 02/22/2017 NAHOMY HANCOCK Ot Z12.31 ENCNTR SCREEN MAMMOGRAM FOR MALIGNANT NE 03/14/2017 NAHOMY HANCOCK Ot Z12.31 ENCNTR SCREEN MAMMOGRAM FOR MALIGNANT NE Procedures Code Description [place] [address] ROUTINE VENIPUNCTURE 04/24/2012 18448 THERAPUTIC INJ SQ/IM 04/24/2012 [id number] TORADOL INJ 04/24/2012 [id number] ESR/SED RATE 04/24/2012 01045 CRP 04/24/2012 54871 RA FACTOR 04/24/2012 ANAANA KATTY ANALYZER (SCREEN) 04/24/2012 44116 REMOVAL OF NAIL PLATE 06/01/2012 51199 REMOVAL OF NAIL PLATE 06/05/2012 27262 ROUTINE VENIPUNCTURE 09/16/2013 [id number] GFR CALC (RESULT ONLY) 09/16/2013 17837 BMP 09/16/2013 45473 REMOVAL OF NAIL BED 10/07/2013 12839 UA W/ CULTURE IF INDICATED 02/05/2014 81809 UA W/ CULTURE IF INDICATED 03/16/2014 04554 CULTURE URINE 03/17/2014 05261 ROUTINE VENIPUNCTURE 03/24/2014 82773 THERAPUTIC INJ SQ/IM 03/24/2014 J3301 KENALOG INJ, PER 10 MG 03/24/2014 77494 CBC 03/24/2014 [id number] GFR CALC (RESULT ONLY) 03/24/2014 14432 CMP 03/24/2014 PODIATRY ORLY ELAM 04/15/2014 94975 MAMMOGRAM DX, RIGHT 05/05/2014 19507 NAIL REMOVAL PERMANENT ( PARTIAL OR COMPLETE) 06/26/2014 43036 ROUTINE VENIPUNCTURE 09/16/2014 41334 BONE MINERAL DENSITY, HEEL US (IN HOUSE) 09/16/2014 08682 VITAMIN D 25-HYDROXY (D2,D3 , TOTAL) 09/16/2014 25823 VIT B 12 09/16/2014 [id number] REPAIR PELVIC SUBCU/FASCIA , OPEN APPROAC 05/18/2015 [id number] REMOVAL OF SYNTH SUB FROM VAGINA CUL-D 05/18/2015 [id number] CONTROL BLEEDING IN FEMALE PERINEUM, OPE 05/19/2015 Results Test Result Range Complete blood count (CBC) with automated white blood cell (WBC) differential - 04/24/16 09:43 Blood leukocytes automated count (number/volume) 14.7 10*3/uL 4.3-11.0 Blood erythrocytes automated count (number/volume) 4.51 10*6/uL 4.35-5.85 Venous blood hemoglobin measurement (mass/volume) 14.3 g/dL 11.5-16.0 Blood hematocrit (volume fraction) 41 % 35-52 Automated erythrocyte mean corpuscular volume 91 [foz_us] 80-99 Automated erythrocyte mean corpuscular hemoglobin (mass per erythrocyte) 32 pg 25-34 Automated erythrocyte mean corpuscular hemoglobin concentration measurement ( mass/volume) 35 g/dL 32-36 Automated erythrocyte distribution width ratio 12.6 % 10.0-14.5 Automated blood platelet count (count/volume) 251 10*3/uL 130-400 Automated blood platelet mean volume measurement 10.8 [foz_us] 7.4-10.4 Automated blood neutrophils/100 leukocytes 76 % 42-75 Automated blood lymphocytes/100 leukocytes 13 % 12-44 Blood monocytes/100 leukocytes 11 % 0-12 Automated blood eosinophils/100 leukocytes 0 % 0-10 Automated blood basophils/100 leukocytes 0 % 0-10 Blood neutrophils automated count (number/volume) 11.1 10*3 1.8-7.8 Blood lymphocytes automated count (number/volume) 1.9 10*3 1.0-4.0 Blood monocytes automated count (number/volume) 1.6 10*3 0.0-1.0 Automated eosinophil count 0.0 10*3/uL 0.0-0.3 Automated blood basophil count (count/volume) 0.0 10*3/uL 0.0-0.1 PT panel in platelet poor plasma by coagulation assay - 04/24/16 09:43 Prothrombin time (PT) in platelet poor plasma by coagulation assay 11.8 s 12.2-14.7 INR in platelet poor plasma or blood by coagulation assay 0.9 0.8-1.4 Comprehensive metabolic panel - 04/24/16 09:43 Serum or plasma sodium measurement (moles/volume) 130 mmol/L 135-145 Serum or plasma potassium measurement (moles/volume) 4.1 mmol/L 3.6-5.0 Serum or plasma chloride measurement (moles/volume) 94 mmol/L 98-107 Carbon dioxide 27 mmol/L 21-32 Serum or plasma anion gap determination (moles/volume) 9 mmol/L 5-14 Serum or plasma urea nitrogen measurement (mass/volume) 6 mg/dL 7-18 Serum or plasma creatinine measurement (mass/volume) 0.61 mg/dL 0.60-1.30 Serum or plasma urea nitrogen/creatinine mass ratio 10 NRG Serum or plasma creatinine measurement with calculation of estimated glomerular filtration rate > NRG Serum or plasma glucose measurement (mass/volume) 79 mg/dL 70-105 Serum or plasma calcium measurement (mass/volume) 9.0 mg/dL 8.5-10.1 Serum or plasma total bilirubin measurement (mass/volume) 0.5 mg/dL 0.1-1.0 Serum or plasma alkaline phosphatase measurement (enzymatic activity/volume) 91 U/L 40-136 Serum or plasma aspartate aminotransferase measurement (enzymatic activity/ volume) 12 U/L 5-34 Serum or plasma alanine aminotransferase measurement (enzymatic activity/volume ) 10 U/L 0-55 Serum or plasma protein measurement (mass/volume) 6.7 g/dL 6.4-8.2 Serum or plasma albumin measurement (mass/volume) 4.1 g/dL 3.2-4.5 Complete urinalysis with reflex to culture - 04/24/16 09:43 Urine color determination RED NRG Urine clarity determination SLIGHTLY CLOUDY NRG Urine pH measurement by test strip 7 5-9 Specific gravity of urine by test strip 1.010 1.016- 1.022 Urine protein assay by test strip, semi-quantitative 3+ NEGATIVE Urine glucose detection by automated test strip NEGATIVE NEGATIVE Erythrocytes detection in urine sediment by light microscopy 5+ NEGATIVE Urine ketones detection by automated test strip 1+ NEGATIVE Urine nitrite detection by test strip POSITIVE NEGATIVE Urine total bilirubin detection by test strip NEGATIVE NEGATIVE Urine urobilinogen measurement by automated test strip (mass/volume) NORMAL NORMAL Urine leukocyte esterase detection by dipstick 2+ NEGATIVE Automated urine sediment erythrocyte count by microscopy (number/high power field) > [HPF] NRG Automated urine sediment leukocyte count by microscopy (number/high power field ) [HPF] NRG Bacteria detection in urine sediment by light microscopy FEW NRG Squamous epithelial cells detection in urine sediment by light microscopy 0-2 NRG Crystals detection in urine sediment by light microscopy NONE NRG Casts detection in urine sediment by light microscopy NONE NRG Mucus detection in urine sediment by light microscopy NEGATIVE NRG Complete urinalysis with reflex to culture YES NRG Blood manual differential performed detection - 04/24/16 09:43 Blood monocytes/100 leukocytes 11 % NRG Manual blood segmented neutrophils/100 leukocytes 75 % NRG Blood band neutrophils/100 leukocytes 0 % NRG Manual blood lymphocytes/100 leukocytes 14 % NRG Manual eosinophils/100 leukocytes in nose 0 % NRG Manual blood basophils/100 leukocytes 0 % NRG Blood erythrocyte morphology finding identification NORMAL NRG Bacterial urine culture - 04/24/16 09:43 Bacterial urine culture [id number] NRG COLONY COUNT 10,000/ML - 100,000/ML NRG FTX;REPORTABLE SENSITIVITY REPORTED 04/26/16 8:15 NR FREE TEXT ENTRY 3 PLUS MIXED GRAM POSITIVES <10,000/ML NRG Bacterial susceptibility panel - 04/24/16 09:43 Gentamicin susceptibility test by minimum inhibitory concentration < = NRG Trimethoprim/sulfamethoxazole susceptibility test by minimum inhibitoryconcentration <= NRG Ampicillin susceptibility test by minimum inhibitory concentration < = NRG Tobramycin susceptibility test by minimum inhibitory concentration < = NRG Cefazolin susceptibility test by minimum inhibitory concentration < = NRG Ceftriaxone susceptibility test by minimum inhibitory concentration <= NRG Ampicillin/sulbactam susceptibility test by minimum inhibitory concentration <= NRG Piperacillin/tazobactam susceptibility test by minimum inhibitory concentration <= NRG Ciprofloxacin susceptibility test by minimum inhibitory concentration <= NRG Meropenem susceptibility test by minimum inhibitory concentration < = NRG Nitrofurantoin susceptibility test by minimum inhibitory concentration <= NRG Aztreonam susceptibility test by minimum inhibitory concentration < = NRG Extended spectrum beta lactamase (ESBL) producing bacteria susceptibility test by minimum inhibitory concentration - NRG Complete blood count (CBC) with automated white blood cell (WBC) differential - 04/25/16 08:27 Blood leukocytes automated count (number/volume) 7.1 10*3/uL 4.3-11.0 Blood erythrocytes automated count (number/volume) 4.35 10*6/uL 4.35-5.85 Venous blood hemoglobin measurement (mass/volume) 13.8 g/dL 11.5-16.0 Blood hematocrit (volume fraction) 40 % 35-52 Automated erythrocyte mean corpuscular volume 92 [foz_us] 80-99 Automated erythrocyte mean corpuscular hemoglobin (mass per erythrocyte) 32 pg 25-34 Automated erythrocyte mean corpuscular hemoglobin concentration measurement ( mass/volume) 35 g/dL 32-36 Automated erythrocyte distribution width ratio 12.6 % 10.0-14.5 Automated blood platelet count (count/volume) 237 10*3/uL 130-400 Automated blood platelet mean volume measurement 10.3 [foz_us] 7.4-10.4 Automated blood neutrophils/100 leukocytes 66 % 42-75 Automated blood lymphocytes/100 leukocytes 22 % 12-44 Blood monocytes/100 leukocytes 11 % 0-12 Automated blood eosinophils/100 leukocytes 0 % 0-10 Automated blood basophils/100 leukocytes 0 % 0-10 Blood neutrophils automated count (number/volume) 4.7 10*3 1.8-7.8 Blood lymphocytes automated count (number/volume) 1.5 10*3 1.0-4.0 Blood monocytes automated count (number/volume) 0.8 10*3 0.0-1.0 Automated eosinophil count 0.0 10*3/uL 0.0-0.3 Automated blood basophil count (count/volume) 0.0 10*3/uL 0.0-0.1 Comprehensive metabolic panel - 04/25/16 08:27 Serum or plasma sodium measurement (moles/volume) 131 mmol/L 135-145 Serum or plasma potassium measurement (moles/volume) 4.0 mmol/L 3.6-5.0 Serum or plasma chloride measurement (moles/volume) 97 mmol/L 98-107 Carbon dioxide 24 mmol/L 21-32 Serum or plasma anion gap determination (moles/volume) 10 mmol/L 5-14 Serum or plasma urea nitrogen measurement (mass/volume) 4 mg/dL 7-18 Serum or plasma creatinine measurement (mass/volume) 0.64 mg/dL 0.60-1.30 Serum or plasma urea nitrogen/creatinine mass ratio 6 NRG Serum or plasma creatinine measurement with calculation of estimated glomerular filtration rate > NRG Serum or plasma glucose measurement (mass/volume) 87 mg/dL 70-105 Serum or plasma calcium measurement (mass/volume) 8.5 mg/dL 8.5-10.1 Serum or plasma total bilirubin measurement (mass/volume) 0.4 mg/dL 0.1-1.0 Serum or plasma alkaline phosphatase measurement (enzymatic activity/volume) 73 U/L 40-136 Serum or plasma aspartate aminotransferase measurement (enzymatic activity/ volume) 10 U/L 5-34 Serum or plasma alanine aminotransferase measurement (enzymatic activity/volume ) 11 U/L 0-55 Serum or plasma protein measurement (mass/volume) 6.0 g/dL 6.4-8.2 Serum or plasma albumin measurement (mass/volume) 3.7 g/dL 3.2-4.5 Comprehensive metabolic panel - 05/18/16 13:19 Serum or plasma sodium measurement (moles/volume) 125 mmol/L 135-145 Serum or plasma potassium measurement (moles/volume) 4.3 mmol/L 3.6-5.0 Serum or plasma chloride measurement (moles/volume) 91 mmol/L 98-107 Carbon dioxide 26 mmol/L 21-32 Serum or plasma anion gap determination (moles/volume) 8 mmol/L 5-14 Serum or plasma urea nitrogen measurement (mass/volume) 6 mg/dL 7-18 Serum or plasma creatinine measurement (mass/volume) 0.62 mg/dL 0.60-1.30 Serum or plasma urea nitrogen/creatinine mass ratio 10 NRG Serum or plasma creatinine measurement with calculation of estimated glomerular filtration rate > NRG Serum or plasma glucose measurement (mass/volume) 72 mg/dL 70-105 Serum or plasma calcium measurement (mass/volume) 8.5 mg/dL 8.5-10.1 Serum or plasma total bilirubin measurement (mass/volume) 0.3 mg/dL 0.1-1.0 Serum or plasma alkaline phosphatase measurement (enzymatic activity/volume) 81 U/L 40-136 Serum or plasma aspartate aminotransferase measurement (enzymatic activity/ volume) 14 U/L 5-34 Serum or plasma alanine aminotransferase measurement (enzymatic activity/volume ) 6 U/L 0-55 Serum or plasma protein measurement (mass/volume) 6.1 g/dL 6.4-8.2 Serum or plasma albumin measurement (mass/volume) 3.8 g/dL 3.2-4.5 Lipase - 05/18/16 13:19 Lipase 6 U/L 8-78 [id number] - 09/20/16 09:12 Serum or plasma urea nitrogen measurement (mass/volume) 8 mg/dL 7-18 Serum or plasma creatinine measurement (mass/volume) 0.68 mg/dL 0.60-1.30 Serum or plasma urea nitrogen/creatinine mass ratio 12 NRG Serum or plasma creatinine measurement with calculation of estimated glomerular filtration rate > NRG Complete blood count (CBC) with automated white blood cell (WBC) differential - 10/23/16 14:28 Blood leukocytes automated count (number/volume) 7.0 10*3/uL 4.3-11.0 Blood erythrocytes automated count (number/volume) 4.29 10*6/uL 4.35-5.85 Venous blood hemoglobin measurement (mass/volume) 13.5 g/dL 11.5-16.0 Blood hematocrit (volume fraction) 39 % 35-52 Automated erythrocyte mean corpuscular volume 91 [foz_us] 80-99 Automated erythrocyte mean corpuscular hemoglobin (mass per erythrocyte) 32 pg 25-34 Automated erythrocyte mean corpuscular hemoglobin concentration measurement ( mass/volume) 34 g/dL 32-36 Automated erythrocyte distribution width ratio 12.1 % 10.0-14.5 Automated blood platelet count (count/volume) 222 10*3/uL 130-400 Automated blood platelet mean volume measurement 9.8 [foz_us] 7.4-10.4 Automated blood neutrophils/100 leukocytes 53 % 42-75 Automated blood lymphocytes/100 leukocytes 37 % 12-44 Blood monocytes/100 leukocytes 10 % 0-12 Automated blood eosinophils/100 leukocytes 0 % 0-10 Automated blood basophils/100 leukocytes 0 % 0-10 Blood neutrophils automated count (number/volume) 3.7 10*3 1.8-7.8 Blood lymphocytes automated count (number/volume) 2.6 10*3 1.0-4.0 Blood monocytes automated count (number/volume) 0.7 10*3 0.0-1.0 Automated eosinophil count 0.0 10*3/uL 0.0-0.3 Automated blood basophil count (count/volume) 0.0 10*3/uL 0.0-0.1 Comprehensive metabolic panel - 10/23/16 14:28 Serum or plasma sodium measurement (moles/volume) 128 mmol/L 135-145 Serum or plasma potassium measurement (moles/volume) 4.1 mmol/L 3.6-5.0 Serum or plasma chloride measurement (moles/volume) 92 mmol/L 98-107 Carbon dioxide 29 mmol/L 21-32 Serum or plasma anion gap determination (moles/volume) 7 mmol/L 5-14 Serum or plasma urea nitrogen measurement (mass/volume) 5 mg/dL 7-18 Serum or plasma creatinine measurement (mass/volume) 0.61 mg/dL 0.60-1.30 Serum or plasma urea nitrogen/creatinine mass ratio 8 NRG Serum or plasma creatinine measurement with calculation of estimated glomerular filtration rate > NRG Serum or plasma glucose measurement (mass/volume) 80 mg/dL 70-105 Serum or plasma calcium measurement (mass/volume) 8.4 mg/dL 8.5-10.1 Serum or plasma total bilirubin measurement (mass/volume) 0.3 mg/dL 0.1-1.0 Serum or plasma alkaline phosphatase measurement (enzymatic activity/volume) 64 U/L 40-136 Serum or plasma aspartate aminotransferase measurement (enzymatic activity/ volume) 12 U/L 5-34 Serum or plasma alanine aminotransferase measurement (enzymatic activity/volume ) 9 U/L 0-55 Serum or plasma protein measurement (mass/volume) 5.8 g/dL 6.4-8.2 Serum or plasma albumin measurement (mass/volume) 3.6 g/dL 3.2-4.5 Magnesium - 10/23/16 14:28 Magnesium 2.0 mg/dL 1.8-2.4 Valproic acid - 10/23/16 14:28 Valproic acid 64.6 ug/mL 50.0-100.0 Bacterial urine culture - 11/18/16 13:00 URINE CULTURE RESULTS <10,000/ML NR Complete blood count (CBC) with automated white blood cell (WBC) differential - 11/25/16 15:50 Blood leukocytes automated count (number/volume) 6.6 10*3/uL 4.3-11.0 Blood erythrocytes automated count (number/volume) 3.97 10*6/uL 4.35-5.85 Venous blood hemoglobin measurement (mass/volume) 12.5 g/dL 11.5-16.0 Blood hematocrit (volume fraction) 37 % 35-52 Automated erythrocyte mean corpuscular volume 92 [foz_us] 80-99 Automated erythrocyte mean corpuscular hemoglobin (mass per erythrocyte) 32 pg 25-34 Automated erythrocyte mean corpuscular hemoglobin concentration measurement ( mass/volume) 34 g/dL 32-36 Automated erythrocyte distribution width ratio 12.0 % 10.0-14.5 Automated blood platelet count (count/volume) 237 10*3/uL 130-400 Automated blood platelet mean volume measurement 9.5 [foz_us] 7.4-10.4 Automated blood neutrophils/100 leukocytes 45 % 42-75 Automated blood lymphocytes/100 leukocytes 43 % 12-44 Blood monocytes/100 leukocytes 11 % 0-12 Automated blood eosinophils/100 leukocytes 0 % 0-10 Automated blood basophils/100 leukocytes 1 % 0-10 Blood neutrophils automated count (number/volume) 3.0 10*3 1.8-7.8 Blood lymphocytes automated count (number/volume) 2.8 10*3 1.0-4.0 Blood monocytes automated count (number/volume) 0.8 10*3 0.0-1.0 Automated eosinophil count 0.0 10*3/uL 0.0-0.3 Automated blood basophil count (count/volume) 0.1 10*3/uL 0.0-0.1 Comprehensive metabolic panel - 11/25/16 15:50 Serum or plasma sodium measurement (moles/volume) 127 mmol/L 135-145 Serum or plasma potassium measurement (moles/volume) 4.2 mmol/L 3.6-5.0 Serum or plasma chloride measurement (moles/volume) 93 mmol/L 98-107 Carbon dioxide 26 mmol/L 21-32 Serum or plasma anion gap determination (moles/volume) 8 mmol/L 5-14 Serum or plasma urea nitrogen measurement (mass/volume) 7 mg/dL 7-18 Serum or plasma creatinine measurement (mass/volume) 0.78 mg/dL 0.60-1.30 Serum or plasma urea nitrogen/creatinine mass ratio 9 NRG Serum or plasma creatinine measurement with calculation of estimated glomerular filtration rate > NRG Serum or plasma glucose measurement (mass/volume) 89 mg/dL 70-105 Serum or plasma calcium measurement (mass/volume) 8.6 mg/dL 8.5-10.1 Serum or plasma total bilirubin measurement (mass/volume) 0.2 mg/dL 0.1-1.0 Serum or plasma alkaline phosphatase measurement (enzymatic activity/volume) 77 U/L 40-136 Serum or plasma aspartate aminotransferase measurement (enzymatic activity/ volume) 12 U/L 5-34 Serum or plasma alanine aminotransferase measurement (enzymatic activity/volume ) 10 U/L 0-55 Serum or plasma protein measurement (mass/volume) 6.1 g/dL 6.4-8.2 Serum or plasma albumin measurement (mass/volume) 3.6 g/dL 3.2-4.5 Complete urinalysis with reflex to culture - 11/25/16 15:51 Urine color determination YELLOW NRG Urine clarity determination CLEAR NRG Urine pH measurement by test strip 7 5-9 Specific gravity of urine by test strip 1.010 1.016- 1.022 Urine protein assay by test strip, semi-quantitative NEGATIVE NEGATIVE Urine glucose detection by automated test strip NEGATIVE NEGATIVE Erythrocytes detection in urine sediment by light microscopy NEGATIVE NEGATIVE Urine ketones detection by automated test strip NEGATIVE NEGATIVE Urine nitrite detection by test strip NEGATIVE NEGATIVE Urine total bilirubin detection by test strip NEGATIVE NEGATIVE Urine urobilinogen measurement by automated test strip (mass/volume) NORMAL NORMAL Urine leukocyte esterase detection by dipstick NEGATIVE NEGATIVE Automated urine sediment erythrocyte count by microscopy (number/high power field) NONE NRG Automated urine sediment leukocyte count by microscopy (number/high power field ) NONE NRG Bacteria detection in urine sediment by light microscopy NEGATIVE NRG Squamous epithelial cells detection in urine sediment by light microscopy 0-2 NRG Crystals detection in urine sediment by light microscopy NONE NRG Casts detection in urine sediment by light microscopy NONE NRG Mucus detection in urine sediment by light microscopy NEGATIVE NRG Complete urinalysis with reflex to culture NO NRG Complete blood count (CBC) with automated white blood cell (WBC) differential - 12/01/16 09:30 Blood leukocytes automated count (number/volume) 7.8 10*3/uL 4.3-11.0 Blood erythrocytes automated count (number/volume) 4.54 10*6/uL 4.35-5.85 Venous blood hemoglobin measurement (mass/volume) 14.3 g/dL 11.5-16.0 Blood hematocrit (volume fraction) 42 % 35-52 Automated erythrocyte mean corpuscular volume 93 [foz_us] 80-99 Automated erythrocyte mean corpuscular hemoglobin (mass per erythrocyte) 32 pg 25-34 Automated erythrocyte mean corpuscular hemoglobin concentration measurement ( mass/volume) 34 g/dL 32-36 Automated erythrocyte distribution width ratio 12.3 % 10.0-14.5 Automated blood platelet count (count/volume) 241 10*3/uL 130-400 Automated blood platelet mean volume measurement 10.2 [foz_us] 7.4-10.4 Automated blood neutrophils/100 leukocytes 67 % 42-75 Automated blood lymphocytes/100 leukocytes 21 % 12-44 Blood monocytes/100 leukocytes 11 % 0-12 Automated blood eosinophils/100 leukocytes 1 % 0-10 Automated blood basophils/100 leukocytes 1 % 0-10 Blood neutrophils automated count (number/volume) 5.2 10*3 1.8-7.8 Blood lymphocytes automated count (number/volume) 1.6 10*3 1.0-4.0 Blood monocytes automated count (number/volume) 0.9 10*3 0.0-1.0 Automated eosinophil count 0.0 10*3/uL 0.0-0.3 Automated blood basophil count (count/volume) 0.0 10*3/uL 0.0-0.1 Blood lactic acid measurement (moles/volume) - 12/01/16 09:30 Blood lactic acid measurement (moles/volume) 1.41 mmol/L 0.50-2.00 Comprehensive metabolic panel - 12/01/16 09:30 Serum or plasma sodium measurement (moles/volume) 131 mmol/L 135-145 Serum or plasma potassium measurement (moles/volume) 4.4 mmol/L 3.6-5.0 Serum or plasma chloride measurement (moles/volume) 96 mmol/L 98-107 Carbon dioxide 25 mmol/L 21-32 Serum or plasma anion gap determination (moles/volume) 10 mmol/L 5-14 Serum or plasma urea nitrogen measurement (mass/volume) 6 mg/dL 7-18 Serum or plasma creatinine measurement (mass/volume) 0.64 mg/dL 0.60-1.30 Serum or plasma urea nitrogen/creatinine mass ratio 9 0- 20 Serum or plasma creatinine measurement with calculation of estimated glomerular filtration rate > NRG Serum or plasma glucose measurement (mass/volume) 86 mg/dL 70-105 Serum or plasma calcium measurement (mass/volume) 9.1 mg/dL 8.5-10.1 Serum or plasma total bilirubin measurement (mass/volume) 0.3 mg/dL 0.1-1.0 Serum or plasma alkaline phosphatase measurement (enzymatic activity/volume) 79 U/L 40-136 Serum or plasma aspartate aminotransferase measurement (enzymatic activity/ volume) 15 U/L 5-34 Serum or plasma alanine aminotransferase measurement (enzymatic activity/volume ) 10 U/L 0-55 Serum or plasma protein measurement (mass/volume) 7.3 g/dL 6.4-8.2 Serum or plasma albumin measurement (mass/volume) 3.9 g/dL 3.2-4.5 Complete urinalysis with reflex to culture - 12/01/16 09:43 Urine color determination YELLOW NRG Urine clarity determination CLEAR NRG Urine pH measurement by test strip 7 5-9 Specific gravity of urine by test strip 1.010 1.016- 1.022 Urine protein assay by test strip, semi-quantitative 2+ NEGATIVE Urine glucose detection by automated test strip NEGATIVE NEGATIVE Erythrocytes detection in urine sediment by light microscopy 5+ NEGATIVE Urine ketones detection by automated test strip NEGATIVE NEGATIVE Urine nitrite detection by test strip NEGATIVE NEGATIVE Urine total bilirubin detection by test strip NEGATIVE NEGATIVE Urine urobilinogen measurement by automated test strip (mass/volume) NORMAL NORMAL Urine leukocyte esterase detection by dipstick 3+ NEGATIVE Automated urine sediment erythrocyte count by microscopy (number/high power field) [HPF] NRG Automated urine sediment leukocyte count by microscopy (number/high power field ) [HPF] NRG Bacteria detection in urine sediment by light microscopy TRACE NRG Squamous epithelial cells detection in urine sediment by light microscopy NONE NRG Crystals detection in urine sediment by light microscopy NONE NRG Casts detection in urine sediment by light microscopy NONE NRG Mucus detection in urine sediment by light microscopy NEGATIVE NRG Complete urinalysis with reflex to culture YES NRG Bacterial urine culture - 12/01/16 09:43 Bacterial urine culture [id number] NRG COLONY COUNT <10,000 NRG FTX;REPORTABLE NO FURTHER STUDIES UNLESS REQUESTED NRG Bacterial blood culture - 12/01/16 09:43 Bacterial blood culture NG NRG Bacterial susceptibility panel - 12/01/16 09:43 Gentamicin susceptibility test by minimum inhibitory concentration R NRG Vancomycin susceptibility test by minimum inhibitory concentration 1 NRG Levofloxacin susceptibility test by minimum inhibitory concentration 0.5 NRG Tetracycline susceptibility test by minimum inhibitory concentration >= NRG Ampicillin susceptibility test by minimum inhibitory concentration < = NRG Nitrofurantoin susceptibility test by minimum inhibitory concentration <= NRG Bacterial blood culture - 12/01/16 10:34 Bacterial blood culture NG NRG Encounters ACCT No. Visit Date/Time Discharge Status Pt. Type Provider Facility Loc./Unit Complaint [id number] 10/12/2014 09:32:00 10/12/2014 23:59:59 CLS Outpatient NAHOMY HANCOCK APRN [id number] 09/16/2014 10:09:00 09/16/2014 23:59:59 CLS Outpatient NAHOMY HANCOCK APRN [id number] 09/02/2014 11:44:00 09/02/2014 23:59:59 CLS Outpatient NAHOMY HANCOCK APRN [id number] 06/26/2014 07:54:00 06/26/2014 23:59:59 CLS Outpatient ORLY ELAM DPM [id number] 06/16/2014 08:41:00 06/16/2014 23:59:59 CLS Outpatient KARISSA TORI NAHOMY S [id number] 06/05/2014 08:41:00 06/05/2014 23:59:59 CLS Outpatient ORLY ELAM DPM [id number] 05/08/2014 10:12:00 05/08/2014 23:59:59 CLS Outpatient DAVEY STEPHENSON MD [id number] 04/15/2014 14:18:00 04/15/2014 23:59:59 CLS Outpatient KATELYN HENRIQUEZ APRN [id number] 03/24/2014 08:26:00 03/24/2014 23:59:59 CLS Outpatient NAHOMY HANCOCK APRN [id number] 03/16/2014 15:51:00 03/16/2014 23:59:59 CLS Outpatient MARISABEL ANDERSON APRN [id number] 03/09/2014 12:20:00 03/09/2014 23:59:59 CLS Outpatient EVAN CANO MD [id number] 01/29/2014 00:00:00 01/29/2014 23:59:59 CLS Outpatient KARISSA VALLE NAHOMY Sena [id number] 12/16/2013 11:29:00 12/16/2013 23:59:59 CLS Outpatient EVAN CANO MD [id number] 10/07/2013 16:01:00 10/07/2013 23:59:59 CLS Outpatient FLORENCE VALLE KATELYN Cherelle [id number] 09/16/2013 10:22:00 09/16/2013 23:59:59 CLS Outpatient DAVEY STEPHENSON MD [id number] 05/20/2013 16:31:00 05/20/2013 23:59:59 CLS Outpatient DAVEY STEPHENSON MD [id number] 05/16/2013 11:59:00 05/16/2013 23:59:59 CLS Outpatient BEVERLEY VALLE ROEL Zelalem [id number] 04/18/2013 08:30:00 04/18/2013 23:59:59 CLS Outpatient DAVEY STEPHENSON MD [id number] 06/04/2012 17:25:00 06/04/2012 23:59:59 CLS Outpatient [id number] 06/01/2012 14:15:00 06/01/2012 23:59:59 CLS Outpatient [id number] 05/30/2012 13:22:00 05/30/2012 23:59:59 CLS Outpatient [id number] 04/24/2012 08:23:00 04/24/2012 23:59:59 CLS Outpatient SHITAL AGUILA OLEG Menendez [id number] 08/21/2017 09:57:00 08/21/2017 23:59:59 CLS Outpatient NAHOMY HANCOCK Via [facility] REHAB LBP W [place] LEFT SIDE [id number] 02/20/2017 12:32:00 02/20/2017 23:59:59 CLS Outpatient NAHOMY HANCOCK [facility] RAD Z12.31 [id number] 12/01/2016 08:45:00 12/01/2016 13:06:00 DIS Emergency RANI DIEGO MD [facility] ER UTI/POSS INFECTION [id number] 11/25/2016 13:50:00 11/25/2016 18:08:00 DIS Emergency GREG SNOW [facility] ER UNABLE TO URINATE [id number] 11/19/2016 15:57:00 11/19/2016 23:59:59 CLS Outpatient KATT RAEANN HAMPTONP [facility] LAB ACUTE CYSTITIS WITH HEMATURIA [id number] 11/03/2016 05:34:00 11/03/2016 23:59:59 CLS Outpatient ADRIAN CHAVIRA MD [facility] PREOP COLONOSCOPY [id number] 10/27/2016 13:20:00 10/27/2016 15:20:00 DIS Outpatient SARAH NG MD [facility] REHAB CERVICAL STENOSIS [id number] 10/24/2016 13:39:00 10/24/2016 00:01:00 DIS Outpatient SARAH NG MD [facility] REHAB CERVICAL STENOSIS [id number] 10/23/2016 07:30:00 10/23/2016 23:59:59 CLS Preadmit ADRIAN CHAVIRA MD [facility] ENDO HISTORY OF POLYPS [id number] 10/23/2016 13:19:00 10/23/2016 15:48:00 DIS Emergency KATELYN SHIRLEY DO [facility] ER LEFT ARM/LIPS NUMB [id number] 09/27/2016 09:35:00 09/27/2016 23:59:59 CLS Outpatient MIGUEL BORJA MD [facility] RAD M47.6 [id number] 09/20/2016 08:59:00 09/20/2016 23:59:59 CLS Outpatient MIGUEL BORJA MD [facility] RAD R27.0,M47 [id number] 05/18/2016 13:08:00 05/18/2016 23:59:59 CLS Outpatient NAHOMY HANCOCK [facility] RAD ABD PAIN, UNSPECIFIED LOCATION [id number] 04/25/2016 08:05:00 04/25/2016 09:18:00 DIS Emergency THO MORALES MD [facility] ER UTI SYMPTOMS [id number] 04/24/2016 09:08:00 04/24/2016 13:34:00 DIS Emergency RUBIODEMETRIUS APRN [facility] ER BLOOD/CLOTS IN URINE [id number] 01/20/2016 10:54:00 01/20/2016 23:59:59 CLS Outpatient KYLE CHAVEZ DO [facility] RAD ROUTINE [id number] 11/05/2015 00:08:00 11/05/2015 23:59:59 CLS Preadmit YULIANA EKY MD [facility] ONC [id number] 10/27/2015 14:13:00 11/04/2015 00:01:00 DIS Outpatient YULIANA KEY MD [facility] ONC [id number] 05/23/2015 16:09:00 05/23/2015 21:54:00 DIS Emergency QI MACHUCA [facility] ER BLADDER PROBLEMS [id number] 05/19/2015 10:40:00 05/20/2015 11:05:00 DIS Inpatient KYLE CHAVEZ DO [facility] LDRP RECCURENT PELVIC PROLAPSE [id number] 05/05/2015 11:39:00 05/05/2015 23:59:59 CLS Outpatient KYLE CHAVEZ DO [facility] PREOP INTERIOR COLPORHAPHY [id number] 04/29/2015 08:45:00 04/29/2015 13:40:00 DIS Outpatient ANDREY HOOKER MD [facility] REHAB NECK PAIN [id number] 03/16/2015 09:12:00 03/17/2015 00:01:00 DIS Outpatient ANDREY HOOKER MD [facility] REHAB NECK PAIN [id number] 01/22/2015 07:34:00 01/22/2015 23:59:59 CLS Preadmit TEJA HOLLIDAY BRUCE E DEBILITY [id number] 01/21/2015 18:00:00 01/22/2015 14:37:00 DIS Inpatient TEE KHANNA DO [facility] SURGICAL CERVICAL STENOSIS,DEBILITY,UNSTABLE [id number] 12/31/2014 16:09:00 12/31/2014 23:59:59 CLS Outpatient KYLE CHAVEZ DO Babita [facility] RAD SCREENING [id number] 09/07/2014 08:25:00 11/17/2014 00:01:00 DIS Outpatient SUE GARCIA [facility] ONC [id number] 10/20/2014 17:41:00 10/20/2014 22:59:00 DIS Emergency LUKE DO PROSPRE K [facility] ER HYPERVENTILATING [id number] 10/17/2014 11:15:00 10/17/2014 13:17:00 DIS Emergency BENITO KLEIN MD [facility] ER UTI [id number] 08/18/2014 05:02:00 08/18/2014 06:07:00 DIS Emergency LUKE , PROSPER K [facility] ER SOA [id number] 05/05/2014 11:45:00 05/05/2014 23:59:59 CLS Outpatient JOSIAS GUERRERO [facility] RAD 6 MONTH FOLLOW UP [id number] 01/28/2014 21:50:00 01/29/2014 13:45:00 DIS Inpatient JEROME HOLLIDAY, EVAN An [facility] ICU DRUG OVERDOSE;SUICIDE ATTEMPT;DEPRESSION/ANXIETY [id number] 10/24/2013 08:07:00 10/24/2013 23:59:59 CLS Outpatient JOSIAS GUERRERO [facility] RAD ABNORMAL MAMMO [id number] 10/06/2013 10:09:00 10/06/2013 23:59:59 CLS Outpatient JOSIAS GUERRERO [employer] OFFIC[employer] [facility] RAD SCREENING [id number] 10/14/2012 09:04:00 10/14/2012 23:59:59 CLS Outpatient JOSIAS GUERRERO [employer] [facility] MOBVAN ROUTINE [id number] 07/08/2015 09:47:00 Document Registration [id number] 08/25/2014 16:50:00 Document Registration [id number] 08/17/2014 15:45:00 Document Registration [id number] 08/12/2014 06:37:00 Document Registration [id number] 08/11/2014 02:46:00 Document Registration [id number] 08/10/2014 11:42:00 Document Registration [id number] 09/21/2012 11:05:00 Document Registration [id number] 09/12/2012 08:21:00 Document Registration [id number] 08/06/2012 11:59:00 Document Registration [id number] 05/05/2012 11:46:00 Document Registration [id number] 03/03/2012 15:04:00 Document Registration [id number] 02/20/2012 05:37:00 Document Registration [id number] 02/16/2012 11:40:00 Document Registration [id number] 02/15/2012 20:17:00 Document Registration [id number] 02/13/2012 20:20:00 Document Registration [id number] 02/07/2012 01:30:00 Document Registration [id number] 02/05/2012 19:28:00 Document Registration [id number] 02/01/2012 20:10:00 Document Registration [id number] 09/05/2011 08:18:00 Document Registration [id number] 02/28/2011 12:53:00 Document Registration [id number] 02/10/2011 08:26:00 Document Registration [id number] 01/19/2011 10:03:00 Document Registration [id number] 01/06/2011 09:15:00 Document Registration
== END 2017-08-26 10:35 | disposition home or self-care (01) ==
LOC: EDUNIT# 07:14 → ER 07:16
DX: N39.0 Urinary tract infection, site not specified (principal); F41.9 Anxiety disorder, unspecified; F31.9 Bipolar disorder, unspecified; K21.9 Gastro-esophageal reflux disease without esophagitis; I10 Essential (primary) hypertension; G43.909 Migraine, unspecified, not intractable, without status migrainosus; Z87.891 Personal history of nicotine dependence; Z90.49 Acquired absence of other specified parts of digestive tract; Z90.89 Acquired absence of other organs; Z87.19 Personal history of other diseases of the digestive system; Z98.890 Other specified postprocedural states; Z87.42 Personal history of other diseases of the female genital tract; Z90.710 Acquired absence of both cervix and uterus; Z91.041 Radiographic dye allergy status; Z88.5 Allergy status to narcotic agent
CPT/HCPCS: 36415; 51702; 74176; 80053; 81000; 85025

== ENCOUNTER 2017-09-13 09:51 | Outpatient (RCR) | payer MEDICARE, MEDICAID ==
[~2017-09-13 09:51] MED LIST changes: +PHEN-640 PO
== END 2017-09-13 10:19 | disposition home or self-care (01) ==
PROVIDERS: ATTEND Nurse Practitioner Community Health
DX: M54.42 Lumbago with sciatica, left side (principal)

== ENCOUNTER → 2017-10-11 | Outpatient (CLI) | payer MEDICARE, MEDICAID ==
--- NOTE | 2017-10-11 09:47 | Diagnostic Imaging Report ---
PROCEDURE: MRI lumbar spine. TECHNIQUE: Multiplanar, multisequence MRI of the lumbar spine was performed without contrast. INDICATION: Low back pain and right leg pain. COMPARISON: No prior studies are available for comparison. FINDINGS: Curvature and alignment of the lumbar spine is normal. The vertebral body heights are maintained. No acute compression fracture is seen. No geographic marrow lesion is identified. There is mild desiccation noted at the L4-L5 disc. There is also some mild loss of height and signal intensity to the L1-L2 disc compatible with degenerative disease. Lower thoracic degenerative changes are also seen. The conus is unremarkable at the L1 level. T12-L1: There is broad based disc/osteophyte complex as well as hypertrophic facet changes, however, the central canal is patent. Neural foramina are patent. L1-L2: Endplate osteophytes are present but central canal remains widely patent. No significant neuroforaminal stenosis is seen. L2-L3: There is some ligamentous thickening and facet changes but no significant central canal or neuroforaminal stenosis is identified. L3-L4: Ligamentous thickening and hypertrophic facet changes are present. This does produce mild trefoil configuration of the sac. AP dimensions of the sac remain within normal limits. No neuroforaminal stenosis is seen. L4-L5: There is significant hypertrophic facet degenerative change as well as ligamentous thickening producing significant trefoil stenosis of the central canal. Broad-based disc/osteophyte complex is present as well. No neuroforaminal stenosis is seen. L5-S1: Hypertrophic facet changes are present. Central canal is widely patent. Neural foramina are patent. Paraspinous tissues are unremarkable. IMPRESSION: Multilevel lumbar spondylosis and facet arthropathy, described level by level above. This is most severe at L4-L5 level where there is severe trefoil central canal stenosis present. No acute compression fracture is detected. Dictated by: Dictated on workstation # [id number]
== END ==
LOC: RAD 08:13
PROVIDERS: ATTEND Student in an Organized Health Care Education/Training Program
DX: M48.061 Spinal stenosis, lumbar region without neurogenic claudication (principal); M47.24 Other spondylosis with radiculopathy, thoracic region; M47.26 Other spondylosis with radiculopathy, lumbar region; M46.86 Other specified inflammatory spondylopathies, lumbar region; M89.38 Hypertrophy of bone, other site
CPT/HCPCS: 72148

== ENCOUNTER 2018-03-18 05:47 | Outpatient (CLI) | payer MEDICARE, MEDICAID ==
[~2018-03-18] VITALS: Ht 162.6 cm; Wt 74.8 kg
[2018-03-18] MEDS ORDERED: CHOL100045 PO (12:59)
[2018-03-18] MEDS ORDERED: DIPH25CA79 PO (13:33)
[2018-03-18] MEDS ORDERED: MONT10TA24 PO (13:33)
[2018-03-18] MEDS ORDERED: GABA-486 PO (13:33)
[2018-03-18] MEDS ORDERED: FLUT16SP22 NSEACH (13:33)
[2018-03-18] MEDS ORDERED: OXYB10TA PO (13:33)
[2018-03-18] MEDS ORDERED: BACL20TA PO (13:33)
[2018-03-18] MEDS ORDERED: IBUP-1773 PO (13:33)
[2018-03-18] MEDS ORDERED: NITR100C PO (13:33)
[2018-03-18] MEDS ORDERED: CETI10TA17 PO (13:33)
[2018-03-18] MEDS ORDERED: GABA-488 PO (13:33)
[2018-03-18] MEDS ORDERED: DOCU100T7 PO (13:33)
[2018-03-18] MEDS ORDERED: DICL100G31 TP (13:33)
== END 2018-03-18 13:39 | disposition home or self-care (01) ==
LOC: PREOP 05:47
PROVIDERS: ATTEND Urology
DX: Z01.818 Encounter for other preprocedural examination (principal)

== ENCOUNTER 2018-03-26 06:49 | Observation (INO) | payer MEDICARE, MEDICAID ==
[~2018-03-26] VITALS: Ht 162.6 cm; Wt 74.8 kg
[~2018-03-26 06:49] MED LIST changes: +BACL20TA PO; +CETI10TA17 PO; +CHOL100045 PO; +DICL100G31 TP; +DOCU100T7 PO; +FLUT16SP22 NSEACH; +GABA-486 PO; +MONT10TA24 PO; +NITR100C PO; +OXYB10TA PO
[2018-03-26 07:15] VITALS: BP 135/67
[2018-03-26] MEDS ORDERED: LACTATED RINGERS 1,000 ML IV PRN (07:16)
--- NOTE | 2018-03-26 07:17 | Progress Note-Pre Operative ---
Pre-Operative Progress Note H&P Reviewed The H&P was reviewed, patient examined and no changes noted. Date Seen by Provider: Mar 26, 2018 Time Seen by Provider: 07:17 Date H&P Reviewed: Mar 26, 2018 Time H&P Reviewed: 07:17 Pre-Operative Diagnosis: CYSTOCELE AND URINARY INCONTINENCE COLIN ALEXANDRA MD Mar 26, 2018 7:17 am
[2018-03-26] MEDS ORDERED: ONDANSETRON 4 MG/2 ML (SDV) Z0FRAN IV ONE (07:30)
[2018-03-26] MEDS ORDERED: cefTRIAXone FOR IV USE 1,000 MG in NS (IVPB) 50 ML IV ONE (07:30)
[2018-03-26] MEDS ORDERED: SCOPOLAMINE 1.5 MG (TRANSDERM-SCOP) PATCH TOP ONE (07:30)
[2018-03-26] MEDS ORDERED: FAMOTIDINE 20MG/2ML IV (PEPCID) IV ONE (07:30)
[2018-03-26] MEDS ORDERED: ROCURONIUM 10 MG/ML 5 ML SYRINGE IV ONE (07:49)
[2018-03-26] MEDS ORDERED: ONDANSETRON 4 MG/2 ML (SDV) Z0FRAN ONE (07:49)
[2018-03-26] MEDS ORDERED: LIDOCAINE PF 2% 2 ML (XYLOCAINE) VIAL ONE ×2 (07:49→08:04)
[2018-03-26] MEDS ORDERED: proPOfol 200 MG/20 ML (DIPRIVAN) VIAL IV ONE (07:49)
[2018-03-26] MEDS ORDERED: fentaNYL INJECTION 100 MCG/2 ML AMP ONE (07:50)
[2018-03-26] MEDS ORDERED: LIDOCAINE/EPI 1%-1:200,000 (XYLOCAINE) 10 ML VIAL ONE (07:50)
[2018-03-26] MEDS ORDERED: ESTRADIOL VAGINAL CREAM 42.5 GM (ESTRACE) VG ONE (07:50)
--- NOTE | 2018-03-26 07:51 | Progress Note-Post Operative ---
Post-Operative Progess Note Surgeon (s)/Kick Press Operator (s) Surgeon COLIN ALEXANDRA MD Kick Press Operator: NONE Pre-Operative Diagnosis CYSTOCELE AND URINARY INCONTINENCE Post-Operative Diagnosis SAME Procedure & Operative Findings Date of Procedure 03/26/18 Procedure Performed/Findings ANTERIOR REPAIR, PVS AND CYSTOSCOPY Anesthesia Type GENERAL Estimated Blood Loss Estimated blood loss (mL): NEGLIGIBLE Specimens/Packing Specimens Removed NONE TO PATH Packing: ESTRACE VAGINAL PACK COLIN ALEXANDRA MD Mar 26, 2018 7:51 am
[2018-03-26] MEDS ORDERED: SEVOFLURANE (ULTANE) 15 ML INHAL SOLN ONE ×5 (08:00→09:18)
[2018-03-26] MEDS ORDERED: MIDAZOLAM 2 MG/2 ML (VERSED) VIAL IV ONE (08:00)
[2018-03-26] MEDS ORDERED: DEXAMETHASONE 10 MG/ML (DECADRON) 1 ML VIAL ONE (08:04)
[2018-03-26] MEDS ORDERED: GLYCOPYRROLATE 0.2 MG/ML (ROBINUL) 2 ML VIAL ONE (09:12)
[2018-03-26] MEDS ORDERED: NEOSTIGMINE 1 MG/ML 5 ML SYRINGE ONE (09:12)
[2018-03-26] MEDS ORDERED: fentaNYL INJECTION 100 MCG/2 ML AMP IVP ONE (09:45)
[2018-03-26] MEDS ORDERED: ONDANSETRON 4 MG/2 ML (SDV) Z0FRAN IVP PRN (09:45)
[2018-03-26] MEDS: LACTATED RINGERS 1,000 ML IV SCH ×3 (09:55→20:59)
[2018-03-26 10:45] VITALS: BP 109/61
--- NOTE | 2018-03-26 10:45 | Anesthesia-General Post-Op ---
General Patient Condition Mental Status/LOC: Same as Preop Cardiovascular: Satisfactory Nausea/Vomiting: Absent Respiratory: Satisfactory Pain: Controlled Complications: Absent Post Op Complications Complications None Follow Up Care/Instructions Patient Instructions None needed. Anesthesia/Patient Condition Patient Condition Patient is doing well, no complaints, stable vital signs, no apparent adverse anesthesia problems. No complications reported per nursing. JAE DEVLIN CRNA Mar 26, 2018 10:45
[2018-03-26] MEDS: KETOROLAC 30 MG/ML VIAL IV PRN ×2 (11:00→17:56)
[2018-03-26] MEDS ORDERED: GABA-486 PO (11:37)
[2018-03-26] MEDS ORDERED: LEVO5TAB12 PO (11:37)
[2018-03-26] MEDS ORDERED: ESTR10TA VG (11:37)
[2018-03-26] MEDS ORDERED: FL025NA25 NS (11:37)
[2018-03-26] MEDS ORDERED: POLY17PO6 PO (11:37)
[2018-03-26] MEDS ORDERED: HYDROcodone/APAP 10 MG/325 MG (LORTAB) TAB PO ONE (13:05)
[2018-03-26 13:10] VITALS: BP 111/64
[2018-03-26] MEDS: HYDROcodone/APAP 10 MG/325 MG (LORTAB) TAB PO PRN ×4 (13:10→20:59)
--- NOTE | 2018-03-26 13:42 | OPERATIVE REPORT ---
DATE OF SERVICE: 03/26/2018 PREOPERATIVE DIAGNOSIS: Cystocele with urinary incontinence. POSTOPERATIVE DIAGNOSIS: Cystocele with urinary incontinence. OPERATION PERFORMED: Anterior repair, pubovaginal sling and cystoscopy. SURGEON: Jah Alexandra MD ANESTHESIA: General. COMPLICATIONS: None. DESCRIPTION OF PROCEDURE: Under satisfactory general anesthesia, the patient in extended lithotomy position, genitalia were prepped and draped in the usual sterile fashion with a separate vaginal prep. Lynch catheter was inserted and drained the bladder. I infiltrated the anterior vaginal wall with lidocaine and epinephrine. Then, I made a vertical incision in the anterior vaginal mucosa carried down to the fascia, dissected well. The fascia was healthy. The old sling was not disturbed. I approximated the fascia with interrupted 2-0 Vicryl giving excellent support to the bladder. Then, I went ahead and passed the pubovaginal sling Solyx device on both sides using the described technique. The sling was sitting nicely under the midurethra with no twisting or tension. Cystoscopy was performed to confirm the integrity of the bladder, which was by the way completely normal, no evidence of interstitial cystitis. Ureteric orifices normal. There was clear efflux. No foreign body and the presence of the sling under the mid urethra. The bladder was left at least half full to perform a manual Valsalva maneuver after removing the cystoscope and it was completely negative. I reinserted the Lynch catheter draining clear fluid. Hemostasis was complete. Excess vaginal mucosa was excised and the mucosa was approximated with a running 2-0 Vicryl Rapide suture. A vaginal pack was inserted using Estrace cream. Estimated blood loss was negligible. Needle, sponge, instrument count correct x2. The patient tolerated the procedure and anesthesia well and was sent to recovery room in stable condition. Job ID: [id number] DocumentID: [id number] Dictated Date: 03/26/2018 09:20:54 Business Management Intern Date: 03/26/2018 13:41:46 Dictated By: JAH ALEXANDRA MD [facility]
[2018-03-26] MEDS ORDERED: NON-FORMULARY MEDICATION 1 EA EA (Hydroxyzine HCl 10 MG) PO PRN (14:00)
[2018-03-26] MEDS ORDERED: PATIENT MAY USE OWN MEDS, ALL MC SCH (14:00)
[2018-03-26] MEDS ORDERED: ONDANSETRON 4 MG/2 ML (SDV) Z0FRAN IVP ONE (16:15)
[2018-03-26 16:37] LABS: BASOPHILS % (AUTO) 0 % (0-10); EOSINOPHILS % (AUTO) 0 % (0-10); HEMATOCRIT 37 % (35-52); HEMOGLOBIN 12.9 G/DL (11.5-16.0); LYMPHOCYTES % (AUTO) 5 % (12-44); MEAN CORPUSCULAR HEMOGLOBIN 32 PG (25-34); MEAN CORPUSCULAR HGB CONC 35 G/DL (32-36); MEAN CORPUSCULAR VOLUME 93 FL (80-99); MEAN PLATELET VOLUME 10.4 FL (7.4-10.4); MONOCYTES # (AUTO) 1.5 X 10^3 (0.0-1.0); MONOCYTES % (AUTO) 8 % (0-12); NEUTROPHILS % (AUTO) 87 % (42-75); PLATELET COUNT 252 10^3/uL (130-400); RED CELL DISTRIBUTION WIDTH 12.3 % (10.0-14.5); WHITE BLOOD COUNT 19.5 10^3/uL (4.3-11.0)
[2018-03-26 17:00] LABS: BAND NEUTROPHILS 1 %; BASOPHILS % (MANUAL) 0 %; EOSINOPHILS % (MANUAL) 0 %; LYMPHOCYTES % (MANUAL) 5 %; MONOCYTES % (MANUAL) 8 %; NEUTROPHILS % (MANUAL) 86 %; RBC MORPH NORMAL
[2018-03-26 18:10] VITALS: BP 90/56
[2018-03-26] MEDS: DIVALPROEX EXT RELEASE 500 MG (DEPAKOTE ER) TAB PO SCH (19:50)
[2018-03-26] MEDS: hydrOXYzine (ATARAX) 10 MG TAB PO PRN (19:51)
[2018-03-26 20:00] VITALS: BP 71/53
[2018-03-26] MEDS ORDERED: DIVALPROEX SODIUM 1000 MG PO SCH (21:00)
[2018-03-26] MEDS: LACTATED RINGERS 1,000 ML IV ONE (22:00)
[2018-03-26] MEDS ORDERED: diphenhydrAMINE 25 MG TAB (BENADRYL) PO ONE (22:15)
[2018-03-26] MEDS ORDERED: BACLOFEN 10 MG (LIORESAL) TAB ONE (22:28)
[2018-03-26 23:00] VITALS: BP 74/51
--- NOTE | 2018-03-26 23:08 | Progress Note-Urology ---
Progress Note-Urology Progress Notes/Assess & Plan Progress/Assessment & Plan PATIENT COMPLAINS OF GENERALIZED ACHES AND SUPRAPUBIC PRESSURE. U.O LOWE LAST 3 HOURS AND SOME HEMATURIA AND VAGINAL OOZING.WBCS 19.5, HB 12.9. PATIENT LOOKS WELL. ABDOMEN IS SOFT WITH MILD SUPRAPUBIC TENDERNESS, URINE TINGED. I REMOVED THE VAGINAL PACK, NO SIGNIFICANT VAGINAL BLEEDING. PATIENT FEELS BETTER POST REMOVING THE PACK. I IRRIGATED THE CATHETER, WORKS WELL, NO CLOTS. NO VAGINAL LEAKAGE. WE WILL BOLUS THE PATIENT WITH 500CC IV FLUID OVER 1 HOUR AND SEE RESPONSE. CHECK CBC, BMP IN AM AND TYPE AND SCREEN TONIGHT IN CASE. Final Diagnosis CYSTOCELE AND INCONTINENCE COLIN ALEXANDRA MD Mar 26, 2018 23:08
[2018-03-27] VITALS (10 sets, daily range): BP systolic 76–137; BP diastolic 50–95
[2018-03-27] MEDS ORDERED: LACTATED RINGERS 1,000 ML IV ONE
[2018-03-27] MEDS: KETOROLAC 30 MG/ML VIAL IV PRN ×4 (00:05→17:44)
[2018-03-27] MEDS: LACTATED RINGERS 1,000 ML IV ONE (00:44)
[2018-03-27 05:17] LABS: BASOPHILS % (AUTO) 0 % (0-10); EOSINOPHILS % (AUTO) 0 % (0-10); HEMATOCRIT 24 % (35-52); HEMOGLOBIN 8.2 G/DL (11.5-16.0); LYMPHOCYTES # (AUTO) 2.4 X 10^3 (1.0-4.0); LYMPHOCYTES % (AUTO) 14 % (12-44); MEAN CORPUSCULAR HEMOGLOBIN 33 PG (25-34); MEAN CORPUSCULAR HGB CONC 35 G/DL (32-36); MEAN CORPUSCULAR VOLUME 94 FL (80-99); MEAN PLATELET VOLUME 10.7 FL (7.4-10.4); MONOCYTES # (AUTO) 1.7 X 10^3 (0.0-1.0); MONOCYTES % (AUTO) 10 % (0-12); NEUTROPHILS # (AUTO) 13.2 X 10^3 (1.8-7.8); NEUTROPHILS % (AUTO) 76 % (42-75); PLATELET COUNT 207 10^3/uL (130-400); RED BLOOD COUNT 2.52 10^6/uL (4.35-5.85); RED CELL DISTRIBUTION WIDTH 11.9 % (10.0-14.5); WHITE BLOOD COUNT 17.3 10^3/uL (4.3-11.0)
[2018-03-27] MEDS: LACTATED RINGERS 1,000 ML IV SCH (05:20)
[2018-03-27 05:34] LABS: BUN/CREATININE RATIO 10; CALCIUM 8.1 MG/DL (8.5-10.1); CARBON DIOXIDE 25 MMOL/L (21-32); CHLORIDE 98 MMOL/L (98-107); CREATININE SERUM 0.71 MG/DL (0.60-1.30); GFR ESTIMATED > 60; GLUCOSE 110 MG/DL (70-105); POTASSIUM 4.5 MMOL/L (3.6-5.0); SODIUM 130 MMOL/L (135-145)
[2018-03-27] MEDS: hydrOXYzine (ATARAX) 10 MG TAB PO PRN (07:15)
[2018-03-27] MEDS: FETZIMA 120 MG PO SCH (07:15)
--- NOTE | 2018-03-27 07:26 | Progress Note-Urology ---
Progress Note-Urology Progress Notes/Assess & Plan Progress/Assessment & Plan AFEBRILE, VSS. FEELING AND LOOKING BETTER. URINE CLEAR DANYA. URINE OUTPUT BETTER. VAGINAL OOZING MUCH LESS. ABDOMEN SOFT AND NOT TENDER. PAIN MUCH BETTER. PASSING FLATTUS. TOLERATED PO WELL. WBCS 17.3, HB 8.2. PLAN 2 UNITS OF BLOOD AND RECHECK CBC 2 HOURS AFTER SECOND UNIT Final Diagnosis INCONTINENCE AND CYSTOCELE COLIN ALEXANDRA MD Mar 27, 2018 07:26
[2018-03-27] MEDS ORDERED: LEVOFLOXACIN 250 MG/50 ML IVPB 50 ML IV SCH (07:51)
[2018-03-27] MEDS ORDERED: NS IV 500 ML 500 ML IV SCH (09:00)
[2018-03-27] MEDS ORDERED: BACLOFEN 10 MG (LIORESAL) TAB PO SCH (09:00)
[2018-03-27] MEDS ORDERED: BENZOCAINE/MENTHOL (DERMOPLAST) 56 ML CAN TP ONE (09:48)
[2018-03-27] MEDS ORDERED: ALPRAZolam 0.25 MG (XANAX) TAB PO PRN (10:00)
[2018-03-27] MEDS: diphenhydrAMINE 50 MG/ML INJ (BENADRYL) IVP PRN ×2 (10:00→19:46)
[2018-03-27] MEDS ORDERED: BENZOCAINE/MENTHOL (DERMOPLAST) 56 ML CAN TP PRN (10:15)
--- NOTE | 2018-03-27 12:45 | Progress Note-Urology ---
Progress Note-Urology Progress Notes/Assess & Plan Progress/Assessment & Plan CONTINUES IMPROVIMG SUBJECTIVELY AND OBJECTIVELY. ON SECOND UNIT OF BLOOD, VITALS AND U.O MUCH BETTER. NO BLEEDING. WE WILL DC ERAZO ONCE BLOOD DONE AND PATIENT AMBULATING. COMPLAINS OF GENERALIZED ITCHING, NO RASH.BENADRYL GIVEN WITH SOME RELIEF. PLAN SOLU MEDROL Final Diagnosis INCONTINENCE AND CYSTOCELE COLIN ALEXANDRA MD Mar 27, 2018 12:45 pm
[2018-03-27] MEDS ORDERED: methylPREDNISolone 125 MG (Solu-MEDROL) VIAL IVP NR (13:00)
[2018-03-27] MEDS ORDERED: methylPREDNISolone 125 MG (Solu-MEDROL) VIAL IVP ONE (13:15)
[2018-03-27 15:25] LABS: BASOPHILS % (AUTO) 0 % (0-10); EOSINOPHILS % (AUTO) 0 % (0-10); HEMATOCRIT 31 % (35-52); HEMOGLOBIN 10.9 G/DL (11.5-16.0); LYMPHOCYTES # (AUTO) 2.1 X 10^3 (1.0-4.0); LYMPHOCYTES % (AUTO) 14 % (12-44); MEAN CORPUSCULAR HEMOGLOBIN 32 PG (25-34); MEAN CORPUSCULAR HGB CONC 35 G/DL (32-36); MEAN CORPUSCULAR VOLUME 92 FL (80-99); MEAN PLATELET VOLUME 10.3 FL (7.4-10.4); MONOCYTES # (AUTO) 1.1 X 10^3 (0.0-1.0); MONOCYTES % (AUTO) 8 % (0-12); NEUTROPHILS % (AUTO) 79 % (42-75); PLATELET COUNT 185 10^3/uL (130-400); RED BLOOD COUNT 3.36 10^6/uL (4.35-5.85); RED CELL DISTRIBUTION WIDTH 12.6 % (10.0-14.5); WHITE BLOOD COUNT 15.2 10^3/uL (4.3-11.0)
[2018-03-27] MEDS: DIVALPROEX EXT RELEASE 500 MG (DEPAKOTE ER) TAB PO SCH (19:37)
[2018-03-28 00:34] VITALS: BP 116/73
[2018-03-28] MEDS: KETOROLAC 30 MG/ML VIAL IV PRN ×2 (00:34→05:48)
[2018-03-28 05:42] VITALS: BP 125/75
[2018-03-28 08:00] VITALS: BP 126/74
[2018-03-28] MEDS: FETZIMA 120 MG PO SCH (08:08)
[2018-03-28] MEDS: hydrOXYzine (ATARAX) 10 MG TAB PO PRN (08:09)
--- NOTE | 2018-03-28 11:47 | Discharge Inst-Urology ---
Discharge Inst-Urology Discharge Medications New, Converted, or Re-newed RX: RX on Chart Patient Instructions/Follow Up Plan Please make appointment to been seen in office in 2 weeks. Rest till then Showers, no bath Keep bowels soft and moving Increase oral fluids for 48 hours and then as needed. Diet as tolerated. If questions or concerns contact your physician Or seek help at emergency department. COLIN ALEXANDRA MD Mar 28, 2018 11:47 am
--- NOTE | 2018-03-28 11:50 | Progress Note-Urology ---
Progress Note-Urology Progress Notes/Assess & Plan Progress/Assessment & Plan AFEBRILE, VSS. DOING, FEELING AND LOOKING MUCH BETTER. VOIDING WELL, EMPTIES, AND DRY. NO BLEEDING. PVR ONLY 23CC. URINE CLEAR DANYA. HOME WITH INSTRUCTIONS AND RX Final Diagnosis INCONTINENCE AND CYSTOCELE COLIN ALEXANDRA MD Mar 28, 2018 11:50
[2018-03-28 12:00] VITALS: BP 126/70
[2018-03-28] MEDS ORDERED: CIPR-225 PO (12:02)
[2018-03-28] MEDS ORDERED: IBUPROFEN 600 MG (MOTRIN) TAB PO ONE (12:05)
[2018-03-28 14:00] VITALS: BP 126/74
--- NOTE | 2018-04-01 11:57 | Physician Query-Anemia ---
Physician Query-Anemia Query to Physician: Provider's Document Request-Please contact mason tender listed on document for more information. Dear Provider, In cases where a patient has anemia and blood loss, the junior accountant bookkeeper can never assume a cause and effect relationship. Please document the type of the anemia, if known, on this form as an addendum: *Please exercise your independent, professional judgement when responding. A specific answer is not anticipated or expected. Based on a review/Patient has: Hgb/Hct: 03/26/18 Hgb 12.9 : Hct 37 03/27/18 Hgb 8.2 : Hct 24 Transfusion: Yes Type of anemia, if known: Anemia due to: acute blood loss If you have questions please contact: Automation Controls Engineer: Aliya Linares Ext: [phone] Thank you for your time and cooperation. Clinical Observer Helper/Automation Controls Engineer This is a permanent part of the medical record ALMA LINARES Apr 01, 2018 11:57 COLIN ALEXANDRA MD Apr 02, 2018 07:18
== END 2018-03-28 11:43 | disposition home or self-care (01) ==
LOC: SDC 06:49 → WS 10:30 → SDC 03-27 14:29 → WS 03-27 14:30 → UNDODISOB 03-28 14:00 → WS 03-28 14:00
PROVIDERS: ADMIT Urology; ATTEND Urology
DX: N81.10 Cystocele, unspecified (principal); R32 Unspecified urinary incontinence; D62 Acute posthemorrhagic anemia; K21.9 Gastro-esophageal reflux disease without esophagitis; F17.210 Nicotine dependence, cigarettes, uncomplicated; Z79.899 Other long term (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
CPT/HCPCS: 36415; 80048; 85007; 85025; 85027; 86850; 86900; 86901; 86920; 87081; 94664; 99211; G0378

== ENCOUNTER → 2018-10-29 | Outpatient (CLI) | payer MEDICARE, MEDICAID ==
[~2018-10-29] MED LIST changes: +CIPR-225 PO; +FL025NA25 NS; +LEVO5TAB12 PO; +POLY17PO6 PO
--- NOTE | 2018-10-29 12:50 | Diagnostic Imaging Report ---
INDICATION: Postmenopausal screening. COMPARISON: None. FINDINGS: AP Spine L1-L4: [BMD (g/cm2): 1.101] [T-Score: -0.8] [Z-Score: 0.1] [BMD Previous: na] [BMD % Change: na] LT Hip Neck: [BMD (g/cm2): 0.626] [T-Score: -3.0] [Z-Score: -1.9] LT Hip Total: [BMD (g/cm2):0.820] [T-Score:-1.5] [Z-Score: -0.7] [BMD Previous: na] [BMD % Change: na] RT Hip Neck: [BMD (g/cm2):0.643] [T-Score:-2.8] [Z-Score:-1.8] RT Hip Total: [BMD (g/cm2):0.829] [T-score:-1.4] [Z-Score:-0.7] [BMD Previous:na] [BMD % Change:na] *Indicates significant change from prior examination based on 95% confidence level. World Health Organization criteria for BMD interpretation classify patients as Normal (T-score at or above -1.0), Osteopenic (T-score between -1.0 and -2.5) or Osteoporotic (T-score at or below -2.5). LIMITATIONS AND MODIFICATION: None. FRACTURE RISK (FRAX SCORE): The ten year probability of (%): Major Osteoporotic Fracture: [26.1] Hip Fracture: [11.7] IMPRESSION: 1. Osteoporosis. 2. Baseline examination. 3. See below National Osteoporosis Foundation guidelines on when to potentially initiate pharmacologic therapy. Based on the National Osteoporosis Foundation Guidelines, pharmacologic treatment should be initiated in any of the following, unless clinical conditions suggest otherwise: * Any patient with prior fragility fracture of the hip or vertebrae. A spine fracture indicates 5X risk for subsequent spine fracture and 2X risk for subsequent hip fracture. * Osteoporosis (T-score <-2.5). * Postmenopausal women and men age 50 and older with low bone mass/osteopenia (T-score between -1.0 and -2.5) by DXA and 10-year major osteoporotic fracture greater than 20% or a 10-year probability of hip fracture greater than 3%. These fracture risks are supplied above in the FRAX score, if applicable. * Clinician judgement and/or patient preferences may indicate treatment for people with 10-year fracture probabilities above or below these levels. Dictated by: Dictated on workstation # [id number]
--- NOTE | 2018-10-29 14:27 | Diagnostic Imaging Report ---
INDICATION: Routine screening. COMPARISON: 02/20/2017 and 01/20/2016. TECHNIQUE: 2D and 3D bilateral screening mammography was performed with CAD. FINDINGS: Both breasts are heterogeneously dense, limiting the sensitivity of mammography. Scattered benign-appearing calcifications are identified bilaterally. No dominant mass or malignant appearing microcalcifications are seen. The axillae are unremarkable. IMPRESSION: No mammographic features suspicious for malignancy are identified. ACR BI-RADS Category 2: Benign findings. Result letter will be mailed to the patient. Note: At least 10% of breast cancer is not imaged by mammography. Dictated by: Dictated on workstation # [id number]
== END ==
LOC: RAD 09:01
PROVIDERS: ATTEND Nurse Practitioner Community Health
DX: Z12.31 Encounter for screening mammogram for malignant neoplasm of breast (principal); Z13.820 Encounter for screening for osteoporosis; M81.0 Age-related osteoporosis without current pathological fracture; Z78.0 Asymptomatic menopausal state
CPT/HCPCS: 77067; 77080

== ENCOUNTER → 2018-11-13 | Outpatient (CLI) | payer MEDICARE, MEDICAID ==
--- NOTE | 2018-11-13 12:45 | Diagnostic Imaging Report ---
INDICATION: 80-fxsm-aopi smoking history, current smoker for low-dose CT screening. COMPARISON: CT angio chest performed on 10/20/2014. TECHNIQUE: A low-dose nonenhanced CT protocol screening chest was performed with multiplanar and MIP reconstructions. FINDINGS: No pulmonary nodule or suspicious lung mass is found. There is some symmetrical air trapping, mild. No bronchiectasis. There is trace atelectasis versus minimal subpleural linear scarring in the dependent lung bases. There is no evidence for edema or pneumonia. No findings suggestive of lymphadenopathy on this limited nonenhanced exam. The thoracic aorta is nonaneurysmal. There is no acute chest wall pathology. IMPRESSION: No nodule or suspicious mass. LUNG RADS CATEGORY: 1. FOLLOWUP: A low-dose CT screening followup in 1 year is recommended. Dictated by: Dictated on workstation # [id number]
== END ==
LOC: RAD 09:58
PROVIDERS: ATTEND Nurse Practitioner Community Health
DX: Z12.2 Encounter for screening for malignant neoplasm of respiratory organs (principal); F17.210 Nicotine dependence, cigarettes, uncomplicated

== ENCOUNTER 2019-05-23 14:54 | Inpatient (IN) | payer MEDICARE, MEDICAID ==
[~2019-05-23] VITALS: Ht 162.6 cm; Wt 74.8 kg
[~2019-05-23 14:54] MED LIST changes: -OXYB10TA PO; +OXYB10TA2 PO; +TRM50T PO
--- NOTE | 2019-05-23 14:58 | ED Back Pain ---
General Chief Complaint: Back Problems Stated Complaint: BACK PAIN Source of Information: Patient Exam Limitations: No Limitations History of Present Illness Date Seen by Provider: May 23, 2019 Time Seen by Provider: 14:56 Initial Comments To ER with severe left sacral pain, progressively worse over the past 3 days, she fell just before thanks giving laying on the right arm dislocated or broke the right proximal humerus she states, she arrives in a shoulder immobilizer today. She followed up with Dr. Bae yesterday who transitioned her from hydrocodone to Ultram because she reports an allergy to morphine hydrocodone and oxycodone. She states that she has had more urinary incontinence lately, but she relates this to not being able to physically make it to the bathroom in time due to the back pain, this is more urinary urgency that results in incontinence. Denies numbness or tingling of her genitals, saddle region or legs. Location: Lumbar Spine Timing/Duration: 12-24 Hours Severity: Moderate Pain/Injury Location: Back Associated Symptoms: lower back pain Allergies and Home Medications Allergies Coded Allergies: iodine (Unverified Allergy, Severe, HIVES, 11/03/16) morphine (Unverified Allergy, Severe, HIVES, 11/03/16) Home Medications Baclofen 20 Mg Tablet, 20 MG PO BID PRN for MUSCLE SPASMS, (Reported) Cholecalciferol (Vitamin D3) 1,000 Unit Tablet, 1,000 UNIT PO DAILY, (Reported) Ciprofloxacin HCl 500 Mg Tablet, 500 MG PO BID Prescribed by: SAI LINDER on 03/28/18 1202 Diclofenac Sodium 100 Gm Gel..gram., TP QID PRN for BACK PAIN, (Reported) Divalproex Sodium 500 Mg Tab.er.24h, 1,000 MG PO HS, (Reported) TAKES 2 (500MG) TABLETS Docusate Sodium 100 Mg Tablet, 100 MG PO DAILY, (Reported) Estradiol 2 Mg Tablet, 2 MG PO DAILY, (Reported) Estradiol 10 Mcg Tablet, 10 MCG VG MoFr, (Reported) Flunisolide 25 Ml Inha, 2 SPRAYS NS BID, (Reported) Gabapentin 300 Mg Capsule, 300 MG PO HS, (Reported) Gabapentin 100 Mg Capsule, 200 MG PO 0700,1330, (Reported) Hydroxyzine HCl 10 Mg Tablet, 10 MG PO BID PRN for ANXIETY, (Reported) Ibuprofen 600 Mg Tablet, 600 MG PO QID PRN for PAIN-MILD, (Reported) Levocetirizine Dihydrochloride 5 Mg Tablet, 5 MG PO HS, (Reported) Levomilnacipran Hydrochloride 120 Mg Cap.sa.24h, 120 MG PO DAILY, (Reported) Pantoprazole Sodium 20 Mg Tablet.dr, 20 MG PO DAILY, (Reported) Polyethylene Glycol 3350 17 Gm Powd.pack, 17 GM PO HS, (Reported) Patient Home Medication List Home Medication List Reviewed: Yes Review of Systems Constitutional: see HPI EENTM: see HPI Respiratory: no symptoms reported Cardiovascular: no symptoms reported Genitourinary: no symptoms reported Musculoskeletal: see HPI Skin: no symptoms reported Psychiatric/Neurological: No Symptoms Reported Past Uubgsvu-Qhjchx-Pzuuqr Hx Patient Social History Type Used: Cigarettes Recent Hopitalizations: No Immunizations Up To Date Tetanus Booster (TDap): More than 5yrs PED Vaccines UTD: No Date of Pneumonia Vaccine: Mar 27, 2016 Date of Influenza Vaccine: Mar 19, 2018 Seasonal Allergies Seasonal Allergies: Yes Past Medical History Surgeries: Yes (neck fusion, bladder tie up, ovarian cystectomy, cystocele/rectocele ) Adenoidectomy, Appendectomy, Bladder Surgery, Eye Surgery, Gallbladder, Hysterectomy, Oophorectomy, Tonsillectomy Respiratory: No Cardiac: No Hypertension Neurological: Yes Headaches /Migraines, Vertigo Reproductive Disorders: No Female Reproductive Disorders: 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 Sexually Transmitted Disease: No HIV/AIDS: No Genitourinary: Yes (BLADDER SURGERY) Bladder Infection, UTI-Chronic Gastrointestinal: Yes Gastroesophageal Reflux, Diverticulosis, Polyps, Irritable Bowel Musculoskeletal: Yes (STENOSIS) Arthritis, Fibromyalgia Endocrine: No Cataract Loss of Vision: Bilateral Hearing Impairment: Denies Cancer: No Brain Psychosocial: Yes Anxiety, Bipolar, Depression Integumentary: No Blood Disorders: No Adverse Reaction/Blood Tranf: No (N/A) Family Medical History Alcoholism 19 FATHER Alzheimer's disease 19 MOTHER Arthritis 19 FATHER 19 MOTHER Cardiovascular disease 19 FATHER (massive heart attack) 19 MOTHER (Mitrial valve prolapse, Stroke Multi.) Cataracts G8 SISTER Completed stroke 19 MOTHER Deafness or hearing loss G8 SISTER Dementia 19 MOTHER Diabetes mellitus 19 MOTHER Fibrocystic disease of breast G8 SISTER Hypercholesterolemia 19 FATHER 19 MOTHER G8 BROTHER G8 SISTER G8 SISTER Osteoporosis G8 SISTER Seizure disorder 19 FATHER Severe allergy G8 BROTHER G8 SISTER Thyroid disease 19 MOTHER G8 BROTHER G8 SISTER G8 SISTER No Family History of: AIDS Abdominal aortic aneurysm [place]'s disease Aphasia Asthma Cancer of mouth Colon cancer Congenital disease Coronary thrombosis Cystic fibrosis Drug abuse Dysphasia Glaucoma Headache disorder Hypertension Infertility Kidney disease Not obtainable due to adoption Parkinson's disease Prostate cancer Psychosocial problem Respiratory disorder Tuberculosis No Pertinent Family Hx Physical Exam Vital Signs Vital Signs - First Documented 05/23/19 14:54 Temp 36.5 Pulse 105 Resp 20 B/P (MAP) 152/98 (116) Pulse Ox 99 O2 Delivery Room Air Capillary Refill : Height, Weight, BMI Height: 5'4.00" Weight: 165lbs. 0.0oz. 74.205162jm; 28.3 BMI Method:Stated General Appearance: No Apparent Distress, WD/WN, Other (EMS gave 100 mircograms of fentanyl in route) HEENT: PERRL/EOMI, TMs Normal Neck: Full Range of Motion, Normal Inspection Respiratory: No Accessory Muscle Use, No Respiratory Distress Gastrointestinal: Normal Bowel Sounds, Non Tender, Soft Extremity: Normal Capillary Refill, Normal Inspection Neurologic/Psychiatric: Alert, Oriented x3 Skin: Normal Color, Warm/Dry Progress/Results/Core Measures Results/Orders My Orders Orders - DEMETRIUS RUBIO APRN Ct Lumbar Spine Wo (05/23/19 14:56) Ketamine Syringe (Ed Only) (Ketamine Syr (05/23/19 16:00) Orphenadrine Injection (Norflex Injectio (05/23/19 16:00) Ketorolac Injection (Toradol Injection) (05/23/19 16:00) Orphenadrine Injection (Norflex Injectio (05/23/19 16:15) Medications Given in ED Current Medications Medications Dose Ordered Sig/Jeff Route Start Time Stop Time Status Last Admin Dose Admin Ketamine HCl 15 mg ONCE ONCE IV 05/23/19 16:00 05/23/19 16:01 DC 05/23/19 16:00 15 MG Ketorolac Tromethamine 15 mg ONCE ONCE IVP 05/23/19 16:00 05/23/19 16:01 DC 05/23/19 16:17 15 MG Orphenadrine Citrate 60 mg ONCE ONCE IV 05/23/19 16:15 05/23/19 16:16 DC 05/23/19 16:20 60 MG Vital Signs/I&O 12/6/19 14:54 Temp 36.5 Pulse 105 Resp 20 B/P (MAP) 152/98 (116) Pulse Ox 99 O2 Delivery Room Air Diagnostic Imaging Diagonstic Imaging: CT Comments NAME: CARMEN BUSTAMANTE [facility] REC#: [id number] PT STATUS: REG ER : 1955 PHYSICIAN: DEMETRIUS RUBIO APRN ADMIT DATE: 05/23/19/ER Draft POSDate of Exam:05/23/19 CT LUMBAR SPINE WO PROCEDURE: CT lumbar spine without contrast. TECHNIQUE: Multiple contiguous axial images were obtained through the lumbar spine without the use of intravenous contrast. Sagittal and coronal reformations were then performed. Auto Exposure Controls were utilized during the CT exam to meet ALARA standards for radiation dose reduction. INDICATION: Osteoporosis and back pain COMPARISON with a CT abdomen and pelvis that includes reconstruction views 08/26/2017. The T12 superior endplate Schmorl's node deformity is a stable chronic finding. There is an L1 superior endplate fracture with about 10% stature loss, slight retropulsion of its posterior cortex of about 1 to 2 mm and some associated lucent fracture lines as well as mild perivertebral edema and/or soft tissue hemorrhage. This is consistent with a recent fracture. The mild retropulsion did not result in canal foraminal or recess stenosis. Remaining lumbar levels are normal. There is normal alignment. The chronic appearing sclerotic lesion at the S2 vertebral body segment is a stable finding IMPRESSION: Acute to subacute mild L1 superior endplate fracture with slight retropulsion and mild perivertebral edema or hemorrhage. No substantial resultant stenosis. Remaining lumbar levels normal. Stable chronic Schmorl's node deformity at T12 incidentally noted Dictated on workstation # [id number] Dict: 05/23/19 1602 Trans: 05/23/19 1610 [facility] [id number] Interpreted by: MI MARTINI Electronically signed by: Departure Communication (Admissions) Lynch catheter was started here, not because she was unable to urinate or because of retention but because she needed to urinate and didn't feel that she could get up to the commode. Impression Primary Impression: L1 vertebral fracture Qualified Codes: S32.019A - Unspecified fracture of first lumbar vertebra, initial encounter for closed fracture Disposition: ADMITTED INPATIENT Condition: Stable Departure-Patient Inst. Referrals: [facility] (PCP) Primary Care Physician NAHOMY HANCOCK (Family) Primary Care Physician DEMETRIUS RUBIO APRN May 23, 2019 14:58 POS
[2019-05-23] MEDS ORDERED: ORPHENADRINE 60 MG/2 ML (NORFLEX) AMP IM ONE (16:00)
[2019-05-23] MEDS ORDERED: KETAMINE/NaCl 50 MG/5 ML SYRINGE (ED ONLY) IV ONE (16:00)
[2019-05-23] MEDS ORDERED: KETOROLAC 30 MG/ML VIAL IVP ONE (16:00)
--- NOTE | 2019-05-23 16:10 | Diagnostic Imaging Report ---
PROCEDURE: CT lumbar spine without contrast. TECHNIQUE: Multiple contiguous axial images were obtained through the lumbar spine without the use of intravenous contrast. Sagittal and coronal reformations were then performed. Auto Exposure Controls were utilized during the CT exam to meet ALARA standards for radiation dose reduction. INDICATION: Osteoporosis and back pain COMPARISON with a CT abdomen and pelvis that includes reconstruction views 08/26/2017. The T12 superior endplate Schmorl's node deformity is a stable chronic finding. There is an L1 superior endplate fracture with about 10% stature loss, slight retropulsion of its posterior cortex of about 1 to 2 mm and some associated lucent fracture lines as well as mild perivertebral edema and/or soft tissue hemorrhage. This is consistent with a recent fracture. The mild retropulsion did not result in canal foraminal or recess stenosis. Remaining lumbar levels are normal. There is normal alignment. The chronic appearing sclerotic lesion at the S2 vertebral body segment is a stable finding IMPRESSION: Acute to subacute mild L1 superior endplate fracture with slight retropulsion and mild perivertebral edema or hemorrhage. No substantial resultant stenosis. Remaining lumbar levels normal. Stable chronic Schmorl's node deformity at T12 incidentally noted Dictated by: Dictated on workstation # [id number]
[2019-05-23] MEDS ORDERED: ORPHENADRINE 60 MG/2 ML (NORFLEX) AMP IV ONE (16:15)
--- NOTE | 2019-05-23 16:40 | NUR ---
Pt reports pain has resolved at this time as long as pt doesn't move.
[2019-05-23] MEDS ORDERED: HYDROmorphone 2 MG/ML VIAL (DILAUDID) IV ONE (18:30)
--- NOTE | 2019-05-23 20:00 | NUR ---
CARMEN BUSTAMANTE admitted to room 427-1, with an admitting diagnosis of L1 VERTEBRAE FRACTURE WITH INTRACTABLE PAIN, on 05/23/19 from ED via STRETCHER, accompanied by STAFF.CARMEN BUSTAMANTE introduced to surroundings, call light, bed controls, phone, TV, temperature control, lights, meal times, smoking policy, visitor policy, side rail policy, bathrooms and showers. Patient Rights given to patient in the handbook. CARMEN BUSTAMANTE verbalizes understanding that [facility] is not responsible for the loss or damage to any personal effects or valuables that are kept in the patients posession during their hospitalization.
[2019-05-23 20:04] VITALS: BP 149/67
[2019-05-23] MEDS ORDERED: CATHETER FLUSH 10 ML SYR IV PRN (20:15)
[2019-05-23] MEDS: HYDROmorphone 2 MG/ML VIAL (DILAUDID) IV PRN (21:50)
--- NOTE | 2019-05-23 22:29 | NUR ---
INFORMED DR. VIRGEN THAT MED/SURG FLOOR CAN NOT GIVE NORLEX. TELEPHPHONE ORDERS RECEIVED FOR VALIUM 5MG PO Q4HRS PRN. ALSO INFORMED HER THAT PTS VTE RISK FACTOR SCORE IS 11 AND PT REFUSING TO WEAR SCDS. TELPHONE ORDERS RECEIVED FOR LOVENOX 40MG SQ DAILY. ALSO INFORMED HER THAT PT COMPLAINING OF ITCHING FROM FENTANYL GIVEN TO HER BY EMS. TELEPHONE ORDERS RECEIVED FOR BENADRYL 25MG IV Q4HRS.
[2019-05-23] MEDS: CATHETER FLUSH 10 ML SYR IV SCH (22:34)
[2019-05-23] MEDS: diphenhydrAMINE 50 MG/ML INJ (BENADRYL) IVP PRN (23:44)
[2019-05-23] MEDS: DIAZEPAM 2 MG (VALIUM) TAB PO PRN (23:45)
[2019-05-24] VITALS (7 sets, daily range): BP systolic 115–131; BP diastolic 74–84
[2019-05-24] MEDS: HYDROmorphone 2 MG/ML VIAL (DILAUDID) IV PRN ×4 (01:37→17:20)
[2019-05-24] MEDS: diphenhydrAMINE 50 MG/ML INJ (BENADRYL) IVP PRN ×4 (04:26→20:08)
[2019-05-24] MEDS: KETOROLAC 15 MG/ML VIAL IV PRN ×2 (04:26→20:08)
[2019-05-24] MEDS: CATHETER FLUSH 10 ML SYR IV SCH ×3 (04:27→21:12)
[2019-05-24] MEDS ORDERED: DCCL10A2 PO (04:58)
[2019-05-24] MEDS ORDERED: TRM50T PO (04:58)
[2019-05-24] MEDS ORDERED: BUPR300T43 PO (04:58)
--- NOTE | 2019-05-24 08:07 | NUR ---
prior to a.m. medications pulse was 86 bpm and b/p was 131/84.
[2019-05-24] MEDS: ENOXAPARIN 40 MG/0.4 ML (LOVENOX) SYR SC SCH (08:32)
--- NOTE | 2019-05-24 09:12 | Physical Therapy Evaluation ---
PT Evaluation-General Medical Diagnosis Admission Date May 23, 2019 at 18:14 Medical Diagnosis: back pain, L1 fx, right humerus fx Onset Date: May 23, 2019 Therapy Diagnosis Therapy Diagnosis: impaired mobility, strength, endurance Height/Weight Height (Feet): 5 Height (Inches): 4.00 Weight (Pounds): 165 Weight (Ounces): 0.0 Precautions Precautions/Isolations: Fall Prevention, Standard Precautions Weight Bear Status Right Lower Extremity: Right Weight Bearing/Tolerated Left Lower Extremity: Left Weight Bearing/Tolerated Referral Physician: Roxana Reason for Referral: Evaluation/Treatment Medical History Additional Medical History Past Medical History Surgeries: Yes (neck fusion, bladder tie up, ovarian cystectomy, cystoc denis/rectocele ) Adenoidectomy, Appendectomy, Bladder Surgery, Eye Surgery, Gallbladder, Hysterectomy, Oophorectomy, Tonsillectomy Respiratory: No Cardiac: No Hypertension Neurological: Yes Headaches /Migraines, Vertigo Reproductive Disorders: No Female Reproductive Disorders: Ovarian 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 Sexually Transmitted Disease: No HIV/AIDS: No Genitourinary: Yes (BLADDER SURGERY) Bladder Infection, UTI-Chronic Gastrointestinal: Yes Gastroesophageal Reflux, Diverticulosis, Polyps, Irritable Bowel Musculoskeletal: Yes (STENOSIS) Arthritis, Fibromyalgia Endocrine: No Cataract Loss of Vision: Bilateral Hearing Impairment: Denies Cancer: No Brain Psychosocial: Yes Anxiety, Bipolar, Depression Integumentary: No Blood Disorders: No Adverse Reaction/Blood Tranf: No (N/A) Reviewed History: Yes Social History Home: Apartment Current Living Status: Alone Entry Into Home: Level Entry senior housing Prior Prior Level of Function SCALE: Activities may be completed with or without assistive devices. 4-Wmzfpmkdwv-feramsi completes the activity by him/herself with no assistance from a helper. 5-Set-up or Clean-up Assistance-helper sets up or cleans up; patient completes activity. [place] assists only prior to or following the activity. 4-Supervision or Touching Assistance-helper provides verbal cues and/or touching/steadying and/or contact guard assistance as patient completes activity. Assistance may be provided throughout the activity or intermittently. 3-Partial/Moderate Assistance-helper does LESS THAN HALF the effort. [place] lifts, holds or supports trunk or limbs, but provides less than half the effort. 2-Substantial/Maximal Assistance-helper does MORE THAN HALF the effort. [place] lifts or holds trunk or limbs and provides more than half the effort. 1-Gfhlgxday-jwdxaq does ALL the effort. Patient does none of the effort to complete the activity. Or, the assistance of 2 or more helpers is required for the patient to complete the activity. If activity was not attempted, code reason: 7-Patient Refused. 9-Not Applicable-not attempted and the patient did not perform the activity before the current illness, exacerbation or injury. 10-Not Attempted due to Environmental Limitations-(lack of equipment, weather restraints, etc.). 88-Not Attempted due to Medical Conditions or Safety Concerns. Bed Mobility: 6 Transfers (B,C,W/C): 6 Gait: 6 Indoor Mobility (Ambulation): Independent PT Evaluation-Current Subjective Patient in bed pre tx, agrees to PT, has 7/10 pain in back. Patient agrees to some leg exercises and testing but doesn't want to get out of bed or sit at this time due to pain. Patient has a recent right humerus fx and her right arm is in an immobilizer. Pt/Family Goals to be independent at home Objective Patient Orientation: Person, Place, Situation ROM/Strength ROM Lower Extremities WNL, limited some by pain Strength Lower Extremities 3/5 gross BLE, limited by pain Sensory Hearing: Functional Sensation Right Lower Extremit: Impaired Sensation Left Lower Extremity: Impaired Sensation Lower Extremities Patient has slightly impaired light touch sensation in both great toes. Transfers Roll Left to Right (QC): 88 Sit to Lying (QC): 88 Lying to Sitting/Side of Bed(Q: 88 Sit to Stand (QC): 88 Chair/Ppu-fm-Ubbrz Xfer(QC): 88 Car Transfer (QC): 88 Gait Walk 10 feet (QC): 88 Walk 50 ft with 2 Turns(QC): 88 Walk 150 ft (QC): 88 Walking 10ft/uneven surface-QC: 88 Wheelchair Training Does the Pt Use a Wheelchair?: Yes Wheel 50 ft with 2 turns (QC): 1 Wheel 150 ft (QC): 1 Type of Wheelchair: Manual Stairs 1 Step (curb) (QC): 88 4 Steps (QC): 88 12 Steps (QC): 88 Balance Picking up an Object (QC): 88 Treatment BLE exercise AROM, x10 heel slides, AP, QS, GS Assessment/Needs Patient has impaired mobility, strength, endurance. Pain limits her movement and mobility. Rehab Potential: Fair PT Snf Goals Size Worker Goals PT Snf Goals Time Frame: May 31, 2019 Roll Left & Right (QC): 3 (min A) Sit to Lying (QC): 3 (Sumaya) Lying-Sitting on Side/Bed(QC): 3 (min A) Sit to Stand (QC): 3 (Sumaya) Chair/Xhf-nj-Spwnx Xfer(QC): 3 (Sumaya) Toilet Transfer (QC): 9 Car Transfer (QC): 9 Does the Patient Walk: No and Walking Goal IS indicated Walk 10 feet (QC): 3 (Sumaya) Walk 50ft with 2 Turns (QC): 88 Walk 150 ft (QC): 88 Walking 10ft on Uneven Surface: 88 1 Step (curb) (QC): 88 4 Steps (QC): 88 12 Steps (QC): 88 Picking up an Object (QC): 88 Does the Pt use WC or Scooter?: No Type: N/A Type: N/A PT Plan Problem List Problem List: Activity Tolerance, Functional Strength, Safety, Balance, Gait, Transfer, Bed Mobility, ROM Treatment/Plan Treatment Plan: Continue Plan of Care Treatment Plan: Bed Mobility, Concurrent Therapy, Education, Functional Activity Darrion, Functional Strength, Gait, Safety, Therapeutic Exercise, Tra nsfers Treatment Duration: May 31, 2019 Frequency: 6 times per week Estimated Hrs Per Day: .25 hour per day Patient and/or Family Agrees t: Yes Safety Risks/Education Patient Education: Reviewed Precautions, Correct Positioning, Safety Issues Teaching Recipient: Patient Teaching Methods: Demonstration, Discussion Response to Teaching: Reinforcement Needed Discharge Recommendations Plan Patient will perform bed mobility and transfer training, balance and endurance training, functional strengthening, gait training, and education, to improve fu nctional mobility and independence at home. Therapy Discharge Recommendati: Assisted Living Time/GCodes Time In: 0850 Time Out: 0903 Total Billed Treatment Time: 13 Total Billed Treatment 1 visit ANALIA ESTRADA PT May 24, 2019 09:12 POS
[2019-05-24 09:40] LABS: BASOPHILS % (AUTO) 1 % (0-10); EOSINOPHILS # (AUTO) 0.2 10^3/uL (0.0-0.3); EOSINOPHILS % (AUTO) 2 % (0-10); HEMATOCRIT 37 % (35-52); HEMOGLOBIN 12.6 G/DL (11.5-16.0); LYMPHOCYTES # (AUTO) 2.8 X 10^3 (1.0-4.0); LYMPHOCYTES % (AUTO) 39 % (12-44); MEAN CORPUSCULAR HEMOGLOBIN 31 PG (25-34); MEAN CORPUSCULAR HGB CONC 34 G/DL (32-36); MEAN CORPUSCULAR VOLUME 91 FL (80-99); MEAN PLATELET VOLUME 9.9 FL (7.4-10.4); MONOCYTES # (AUTO) 0.9 X 10^3 (0.0-1.0); MONOCYTES % (AUTO) 13 % (0-12); NEUTROPHILS # (AUTO) 3.3 X 10^3 (1.8-7.8); NEUTROPHILS % (AUTO) 46 % (42-75); PLATELET COUNT 320 10^3/uL (130-400); RED CELL DISTRIBUTION WIDTH 12.2 % (10.0-14.5); WHITE BLOOD COUNT 7.2 10^3/uL (4.3-11.0)
[2019-05-24 09:53] LABS: ALANINE AMINOTRANSFERASE 12 U/L (0-55); ALBUMIN 3.6 GM/DL (3.2-4.5); ALKALINE PHOSPHATASE 106 U/L (40-136); BILIRUBIN,TOTAL 0.4 MG/DL (0.1-1.0); BUN/CREATININE RATIO 13; CALCIUM 8.9 MG/DL (8.5-10.1); CARBON DIOXIDE 24 MMOL/L (21-32); CHLORIDE 91 MMOL/L (98-107); CREATININE SERUM 0.68 MG/DL (0.60-1.30); GFR ESTIMATED > 60; GLUCOSE 87 MG/DL (70-105); POTASSIUM 4.3 MMOL/L (3.6-5.0); SODIUM 128 MMOL/L (135-145); TOTAL PROTEIN 6.2 GM/DL (6.4-8.2)
[2019-05-24] MEDS ORDERED: NICOTINE 14 MG (NICODERM) PATCH TD ONE ×2 (12:00→12:17)
--- NOTE | 2019-05-24 12:07 | History & Physical-Hospitalist ---
History of Present Illness HPI/Chief Complaint Chief complaint: L1 compression fracture from fall History of present illness: This is a 63-year-old white female clinic patient of Elif Yen at [facility] who presents to the ER with back pain. She had suffered a fall during [place] and sustained a right humerus fracture which she has been maintained with a sling but the back pain became worse and worse presented to the ER found to have an L1 compression fracture of only 10% but the severity of her pain she could not ambulate she was admitted to the hospital in need of probable placement or inpatient rehab. She is also having a lot of rash from narcotics so we will initiate Solu-Medrol 40 mg IV every 12 hours. She wants a copy of the CT scan sent to her pain management doctor in [place]. We will initiate a bowel movement regimen maintain the Lynch and she wants a NicoDerm patch. Source: patient Exam Limitations: no limitations Date Seen 05/24/19 Time Seen by a Provider: 11:00 Attending Physician Lilliam Virgen DO [facility],[facility] Referring Physician Date of Admission May 23, 2019 at 18:14 Home Medications & Allergies Home Medications Reviewed patient Home Medication Reconciliation performed by pharmacy medication reconciliations mathematical engineering technician and/or nursing. Patients Allergies have been reviewed. Allergies Allergies Coded Allergies iodine (Verified Allergy, Severe, HIVES, 05/24/19) morphine (Verified Allergy, Severe, HIVES, 05/24/19) hydrocodone (Verified Allergy, Intermediate, Itching, 05/24/19) oxycodone (Verified Allergy, Intermediate, Itching, 05/24/19) Past Pvgyygp-Vfumlg-Rattoj Hx Past Med/Social Hx: Reviewed Nursing Past Med/Soc Hx, Reviewed and Corrections made Patient Social History Marrital Status: single Alcohol Use: Denies Use Recreational Drug Use: No Smoking Status: Current Everyday Smoker Type Used: Cigarettes Recent Foreign Travel: No Contact w/other who traveled: No Recent Hopitalizations: No Recent Infectious Disease Expo: No Immunizations Up To Date Tetanus Booster (TDap): More than 5yrs Pediatric: No Date of Pneumonia Vaccine: Apr 23, 2018 Date of Influenza Vaccine: Mar 19, 2019 Seasonal Allergies Seasonal Allergies: Yes Past Medical History Surgeries: Adenoidectomy, Appendectomy, Bladder Surgery, Eye Surgery, Gallbladder, Hysterectomy, Oophorectomy, Tonsillectomy Cardiac: Hypertension Neurological: Headaches /Migraines, Vertigo : No Reproductive: No Sexually Transmitted Disease: No HIV/AIDS: No Female Reproductive Disorders: Ovarian Cyst Hysterectomy Genitourinary: Bladder Infection, UTI-Chronic Gastrointestinal: Gastroesophageal Reflux, Diverticulosis, Polyps, Irritable Bowel Musculoskeletal: Arthritis, Fibromyalgia HEENT: Cataract Loss of Vision: Bilateral Hearing Impairment: Denies Cancer: Brain Psychosocial: Anxiety, Bipolar, Depression History of Blood Disorders: No Adverse Reaction to Blood Fraire: No (N/A) Family History Alcoholism 19 FATHER Alzheimer's disease 19 MOTHER Arthritis 19 FATHER 19 MOTHER Cardiovascular disease 19 FATHER (massive heart attack) 19 MOTHER (Mitrial valve prolapse, Stroke Multi.) Cataracts G8 SISTER Completed stroke 19 MOTHER Deafness or hearing loss G8 SISTER Dementia 19 MOTHER Diabetes mellitus 19 MOTHER Fibrocystic disease of breast G8 SISTER Hypercholesterolemia 19 FATHER 19 MOTHER G8 BROTHER G8 SISTER G8 SISTER Osteoporosis G8 SISTER Seizure disorder 19 FATHER Severe allergy G8 BROTHER G8 SISTER Thyroid disease 19 MOTHER G8 BROTHER G8 SISTER G8 SISTER No Family History of: AIDS Abdominal aortic aneurysm Dumont's disease Aphasia Asthma Cancer of mouth Colon cancer Congenital disease Coronary thrombosis Cystic fibrosis Drug abuse Dysphasia Glaucoma Headache disorder Hypertension Infertility Kidney disease Not obtainable due to adoption Parkinson's disease Prostate cancer Psychosocial problem Respiratory disorder Tuberculosis No Pertinent Family Hx Review of Systems Constitutional: see HPI Musculoskeletal: back pain, joint pain (right humerus) Physical Exam Physical Exam Vital Signs Vital Signs - First Documented 05/23/19 14:54 Temp 36.5 Pulse 105 Resp 20 B/P (MAP) 152/98 (116) Pulse Ox 99 O2 Delivery Room Air Capillary Refill : Less Than 3 SecondsLess Than 3 Seconds Height, Weight, BMI Height: 5'4.00" Weight: 165lbs. 0.0oz. 74.899976gu; 29.31 BMI Method:Stated General Appearance: WD/WN, Chronically ill, Mild Distress Eyes: Right Eye Normal Inspection, Right Eye PERRL HEENT: PERRL/EOMI, Normal ENT Inspection, Pharynx Normal, Moist Mucous Membranes Neck: Full Range of Motion, Normal Inspection, Non Tender Respiratory: Chest Non Tender, Lungs Clear, Normal Breath Sounds, No Accessory Muscle Use, No Respiratory Distress Cardiovascular: Regular Rate, Rhythm, No Edema, No Gallop, No JVD, No Murmur, Normal Peripheral Pulses Gastrointestinal: Normal Bowel Sounds, No Organomegaly, No Pulsatile Mass, Non Tender, Soft Back: Decreased Range of Motion, Muscle Spasm, Vertebral Tenderness Extremity: Normal Capillary Refill, Normal Inspection, Normal Range of Motion (right arm in sling), Non Tender, No Calf Tenderness, No Pedal Edema Neurologic/Psychiatric: Alert, Oriented x3, No Motor/Sensory Deficits, Normal Mood/Affect Skin: Normal Color, Warm/Dry Lymphatic: No Adenopathy Results Results/Procedures Labs Laboratory Tests 05/24/19 09:23 05/25/19 04:32 Patient resulted labs reviewed. Assessment/Plan Admission Diagnosis Assessment: L1 compression fracture Unable to ambulate Right humerus fracture Smoker Chronic pain sees pain management in Plan: Pain meds Lovenox SCD's PT/OT IRF? Admission Status: Inpatient Order (span 2 midnights) Reason for Inpatient Admission: L1 compression fracture causes inability to ambulate Diagnosis/Problems Diagnosis/Problems (1) L1 vertebral fracture Status: Acute Qualifiers: Encounter type: initial encounter Fracture type: closed Fracture morphology: unspecified fracture morphology Qualified Codes: S32.019A - Unspecified fracture of first lumbar vertebra, initial encounter for closed fracture (2) Intractable pain Clinical Quality Measures DVT/VTE Risk/Contraindication: Risk Factor Score Per Nursin RFS Level Per Nursing on Admit: 4+=Very High LILLIAM VIRGEN DO May 24, 2019 12:07 POS
[2019-05-24] MEDS ORDERED: methylPREDNISolone 40 MG/ML (Solu-MEDROL) VIAL ONE (12:17)
[2019-05-24] MEDS ORDERED: LACTULOSE SYRUP 10GM/15ML (ENULOSE) 30ML UDC ONE (12:17)
[2019-05-24] MEDS: methylPREDNISolone 40 MG/ML (Solu-MEDROL) VIAL IV SCH ×2 (12:37→20:08)
[2019-05-24] MEDS ORDERED: NS IV 1000 ML 1,000 ML ONE (14:33)
[2019-05-24] MEDS: NS IV 1000 ML 1,000 ML IV SCH (15:12)
[2019-05-24] MEDS ORDERED: hydrOXYzine (ATARAX) 10 MG TAB PO PRN (17:45)
[2019-05-24] MEDS: DIAZEPAM 2 MG (VALIUM) TAB PO PRN (20:08)
[2019-05-24] MEDS: BACLOFEN 10 MG (LIORESAL) TAB PO SCH (21:11)
[2019-05-24] MEDS: LACTULOSE SYRUP 10GM/15ML (ENULOSE) 30ML UDC PO SCH (21:11)
[2019-05-24] MEDS: GABAPENTIN 300 MG (NEURONTIN) CAP PO SCH (21:11)
[2019-05-24] MEDS: DIVALPROEX EXT RELEASE 500 MG (DEPAKOTE ER) TAB PO SCH (21:11)
[2019-05-25] MEDS: NS IV 1000 ML 1,000 ML IV SCH ×2 (04:40→18:26)
[2019-05-25] MEDS: CATHETER FLUSH 10 ML SYR IV SCH ×3 (04:41→21:50)
[2019-05-25 05:17] LABS: BUN/CREATININE RATIO 15; CALCIUM 8.7 MG/DL (8.5-10.1); CARBON DIOXIDE 23 MMOL/L (21-32); CHLORIDE 97 MMOL/L (98-107); CREATININE SERUM 0.65 MG/DL (0.60-1.30); GFR ESTIMATED > 60; GLUCOSE 135 MG/DL (70-105); POTASSIUM 4.7 MMOL/L (3.6-5.0); SODIUM 130 MMOL/L (135-145)
[2019-05-25] MEDS: NICOTINE PATCH REMOVAL TP SCH (07:59)
[2019-05-25] MEDS: ENOXAPARIN 40 MG/0.4 ML (LOVENOX) SYR SC SCH (07:59)
[2019-05-25] MEDS: LACTULOSE SYRUP 10GM/15ML (ENULOSE) 30ML UDC PO SCH ×2 (07:59→21:50)
[2019-05-25] MEDS: methylPREDNISolone 40 MG/ML (Solu-MEDROL) VIAL IV SCH (07:59)
[2019-05-25] MEDS: GABAPENTIN 300 MG (NEURONTIN) CAP PO SCH ×2 (07:59→21:49)
[2019-05-25] MEDS: NICOTINE 14 MG (NICODERM) PATCH TD SCH (07:59)
[2019-05-25] MEDS: BACLOFEN 10 MG (LIORESAL) TAB PO SCH ×2 (07:59→21:49)
[2019-05-25 08:00] VITALS: BP 138/79
[2019-05-25] MEDS: KETOROLAC 15 MG/ML VIAL IV PRN ×2 (10:59→18:26)
[2019-05-25 12:00] VITALS: BP 138/79
--- NOTE | 2019-05-25 12:12 | Progress Note - Hospitalist ---
Subjective HPI/CC On Admission Date Seen by Provider: May 25, 2019 Time Seen by Provider: 10:30 Subjective/Events-last exam Patient doing much better Doing a lot better off narcotics since everything makes her itch Receiving a lot of benefit from Toradol Bowels are moving after lactulose Nicotine patch is working very well PT and OT ordered Rehab eval Review of Systems Musculoskeletal: shoulder pain, back pain Objective Exam Vital Signs Vital Signs Date Time Temp Pulse Resp B/P (MAP) Pulse Ox O2 Delivery O2 Flow Rate FiO2 05/25/19 12:00 36.3 110 18 138/79 (98) 97 Room Air Capillary Refill : Less Than 3 SecondsLess Than 3 Seconds General Appearance: No Apparent Distress, WD/WN, Chronically ill Respiratory: Chest Non Tender, Lungs Clear, Normal Breath Sounds, No Accessory Muscle Use, No Respiratory Distress Cardiovascular: Regular Rate, Rhythm, No Edema, No Gallop, No JVD, No Murmur, Normal Peripheral Pulses Back: Decreased Range of Motion Extremity: Normal Range of Motion (except right arm) Neurologic/Psychiatric: Alert, Oriented x3, No Motor/Sensory Deficits, Normal Mood/Affect Results/Procedures Lab Laboratory Tests 05/25/19 04:32 Patient resulted labs reviewed. Assessment/Plan Assessment and Plan Assess & Plan/Chief Complaint Assessment: L1 compression fracture Unable to ambulate Right humerus fracture Smoker Chronic pain sees pain management in [place] Plan: Pain meds Lovenox SCD's PT/OT IRF? Clinical Quality Measures DVT/VTE Risk/Contraindication: Risk Factor Score Per Nursin RFS Level Per Nursing on Admit: 4+=Very High GABRIEL VIRGEN DO May 25, 2019 12:12 POS
[2019-05-25 15:32] VITALS: BP 127/82
[2019-05-25 19:16] VITALS: BP 114/71
[2019-05-25] MEDS: DIVALPROEX EXT RELEASE 500 MG (DEPAKOTE ER) TAB PO SCH (21:49)
[2019-05-25 23:50] VITALS: BP 113/71
[2019-05-26 04:38] VITALS: BP 166/93
[2019-05-26] MEDS: CATHETER FLUSH 10 ML SYR IV SCH ×3 (05:13→20:23)
[2019-05-26] MEDS: KETOROLAC 15 MG/ML VIAL IV PRN ×3 (05:13→20:23)
[2019-05-26 05:52] LABS: BASOPHILS % (AUTO) 0 % (0-10); EOSINOPHILS % (AUTO) 0 % (0-10); HEMATOCRIT 37 % (35-52); HEMOGLOBIN 12.3 G/DL (11.5-16.0); LYMPHOCYTES # (AUTO) 3.9 X 10^3 (1.0-4.0); LYMPHOCYTES % (AUTO) 34 % (12-44); MEAN CORPUSCULAR HEMOGLOBIN 31 PG (25-34); MEAN CORPUSCULAR HGB CONC 33 G/DL (32-36); MEAN CORPUSCULAR VOLUME 93 FL (80-99); MEAN PLATELET VOLUME 10.4 FL (7.4-10.4); MONOCYTES # (AUTO) 1.4 X 10^3 (0.0-1.0); MONOCYTES % (AUTO) 12 % (0-12); NEUTROPHILS # (AUTO) 6.2 X 10^3 (1.8-7.8); NEUTROPHILS % (AUTO) 54 % (42-75); PLATELET COUNT 356 10^3/uL (130-400); RED CELL DISTRIBUTION WIDTH 12.3 % (10.0-14.5); WHITE BLOOD COUNT 11.6 10^3/uL (4.3-11.0)
[2019-05-26 06:11] LABS: ALANINE AMINOTRANSFERASE 9 U/L (0-55); ALBUMIN 3.6 GM/DL (3.2-4.5); ALKALINE PHOSPHATASE 97 U/L (40-136); BILIRUBIN,TOTAL 0.3 MG/DL (0.1-1.0); BUN/CREATININE RATIO 15; CALCIUM 8.8 MG/DL (8.5-10.1); CARBON DIOXIDE 25 MMOL/L (21-32); CHLORIDE 103 MMOL/L (98-107); CREATININE SERUM 0.67 MG/DL (0.60-1.30); GFR ESTIMATED > 60; GLUCOSE 82 MG/DL (70-105); POTASSIUM 4.1 MMOL/L (3.6-5.0); SODIUM 139 MMOL/L (135-145); TOTAL PROTEIN 6.1 GM/DL (6.4-8.2)
[2019-05-26] MEDS: GABAPENTIN 300 MG (NEURONTIN) CAP PO SCH ×2 (07:56→20:15)
[2019-05-26] MEDS: NS IV 1000 ML 1,000 ML IV SCH (07:56)
[2019-05-26] MEDS: BACLOFEN 10 MG (LIORESAL) TAB PO SCH ×2 (07:56→20:15)
[2019-05-26] MEDS: ENOXAPARIN 40 MG/0.4 ML (LOVENOX) SYR SC SCH (07:56)
[2019-05-26] MEDS: NICOTINE 14 MG (NICODERM) PATCH TD SCH (07:56)
[2019-05-26] MEDS: NICOTINE PATCH REMOVAL TP SCH (07:57)
[2019-05-26] MEDS: LACTULOSE SYRUP 10GM/15ML (ENULOSE) 30ML UDC PO SCH ×2 (07:57→20:16)
[2019-05-26 08:00] VITALS: BP 166/78
[2019-05-26] MEDS ORDERED: DIVA500T15 PO (08:47)
[2019-05-26] MEDS ORDERED: MOME17SP9 NSEACH (08:47)
[2019-05-26] MEDS ORDERED: L.AC1CAP6 PO (08:50)
[2019-05-26] MEDS ORDERED: SELE200T11 PO (08:50)
[2019-05-26] MEDS ORDERED: MULT-878 PO (08:50)
[2019-05-26] MEDS ORDERED: SIME125T PO (08:50)
[2019-05-26] MEDS ORDERED: CALC600T12 PO (08:50)
[2019-05-26] MEDS ORDERED: C,E,1CAP PO (08:50)
[2019-05-26] MEDS ORDERED: CHOL3000 PO (08:50)
[2019-05-26] MEDS ORDERED: DICY20TA10 PO (08:53)
[2019-05-26] MEDS ORDERED: PANT40TA3 PO (08:57)
--- NOTE | 2019-05-26 10:04 | NUR ---
SPOKE WITH PT WELL GOING THRU THE EXT MED HISTORY TO COMPLETE THE MED REC. PT HAD A DETAILED MED LIST THAT LISTED ALL HER MEDS AND DIRECTIONS AND IT MATCHED THE EXT MED HISTORY. PT IS NO LONGER TAKING HYDROCODONE, AND IS NOW TAKING TRAMADOL. OTC MEDS: OCUVITE CALCIUM VIT D PROBIOTIC MTC MIRALAX SELENIUM GAS-X
--- NOTE | 2019-05-26 11:53 | Physical Therapy Daily Note ---
PT Daily Note-Current Subjective Patient reports her pain is more controlled and agrees to PT. Pain Numeric Pain Scale: 5-Moderate Pain Location: Lower Location Body Site: Back Pain Description: Acute Mental Status Patient Orientation: Normal For Age Transfers SCALE: Activities may be completed with or without assistive devices. 1-Zmijngrnlo-chpxobq completes the activity by him/herself with no assistance from a helper. 5-Set-up or Clean-up Assistance-helper sets up or cleans up; patient completes activity. [place] assists only prior to or following the activity. 4-Supervision or Touching Assistance-helper provides verbal cues and/or touching/steadying and/or contact guard assistance as patient completes activity. Assistance may be provided throughout the activity or intermittently. 3-Partial/Moderate Assistance-helper does LESS THAN HALF the effort. [place] lifts, holds or supports trunk or limbs, but provides less than half the effort. 2-Substantial/Maximal Assistance-helper does MORE THAN HALF the effort. [place] lifts or holds trunk or limbs and provides more than half the effort. 5-Zogpweagj-yrhfie does ALL the effort. Patient does none of the effort to complete the activity. Or, the assistance of 2 or more helpers is required for the patient to complete the activity. If activity was not attempted, code reason: 7-Patient Refused. 9-Not Applicable-not attempted and the patient did not perform the activity before the current illness, exacerbation or injury. 10-Not Attempted due to Environmental Limitations-(lack of equipment, weather restraints, etc.). 88-Not Attempted due to Medical Conditions or Safety Concerns. Roll Left & Right (QC): 6 Sit to Lying (QC): 6 Lying to Sitting/Side of Bed(Q: 6 Sit to Stand (QC): 6 Chair/Fnu-we-Vrssk Xfer(QC): 6 Toilet Transfer (QC): 6 Car Transfer (QC): 10 Weight Bearing Right Lower Extremity: Right Weight Bearing/Tolerated Left Lower Extremity: Left Weight Bearing/Tolerated Gait Training Does the Patient Walk?: Yes Distance: 400' Walk 10 feet (QC): 6 Walk 50 ft with 2 Turns(QC): 6 Walk 150 ft (QC): 6 Walking 10ft/uneven surface-QC: 6 Gait Assistive Device: Cane Small Base Quad safe and functional Assessment Patient is currently at [facility] with all gross motor skills. She reports she has 5 hrs/day, 5days/wk SKIL. PT recommends short term home health PT to assess home needs and mobility. SW notified. PT Oncology Account Specialist Goals Half-Way Goals PT Half-Way Goals Time Frame: May 31, 2019 Roll Left & Right (QC): 3 (min A) Sit to Lying (QC): 3 (Sumaya) Lying-Sitting on Side/Bed(QC): 3 (min A) Sit to Stand (QC): 3 (Sumaya) Chair/Xki-gx-Tvvzd Xfer(QC): 3 (Sumaya) Toilet Transfer (QC): 9 Car Transfer (QC): 9 Does the Patient Walk: No and Walking Goal IS indicated Walk 10 feet (QC): 3 (Sumaya) Walk 50ft with 2 Turns (QC): 88 Walk 150 ft (QC): 88 Walking 10ft on Uneven Surface: 88 1 Step (curb) (QC): 88 4 Steps (QC): 88 12 Steps (QC): 88 Picking up an Object (QC): 88 Does the Pt use WC or Scooter?: No Type: N/A Type: N/A PT Plan Treatment/Plan Treatment Plan: Continue Plan of Care Treatment Plan: Bed Mobility, Concurrent Therapy, Education, Functional Activity Darrion, Functional Strength, Gait, Safety, Therapeutic Exercise, Transfers Treatment Duration: May 31, 2019 Frequency: 6 times per week Estimated Hrs Per Day: .25 hour per day Patient and/or Family Agrees t: Yes Time/GCodes Time In: 1050 Time Out: 1104 Total Billed Treatment Time: 14 Total Billed Treatment 1 visit FA 14 min PRINCESS ACKERMAN PT May 26, 2019 11:53 POS
[2019-05-26 12:00] VITALS: BP 185/79
--- NOTE | 2019-05-26 14:21 | NUR ---
IRF Evaluation Order received to evaluate patient for the ARU. Chart review complete and it appears patient is ambulating (400ft, SBQC) and transferring with independence; therefore, patient does not require intensive therapies. Thank you for this referral.
--- NOTE | 2019-05-26 16:22 | Occupational Therapy Eval ---
OT Evaluation-General/PLF Medical Diagnosis Admission Date May 23, 2019 at 18:14 Medical Diagnosis: back pain, L1 fx, right humerus fx Onset Date: May 23, 2019 Therapy Diagnosis Therapy Diagnosis: Decreased ADL skills Height/Weight Height (Feet): 5 Height (Inches): 4.00 Weight (Pounds): 165 Weight (Ounces): 0.0 Precautions Precautions/Isolations: Fall Prevention, Standard Precautions Weight Bear Status Pt. states that she is allowed to remove her arm brace, and let her right UE "dangle." Will follow up with this tomorrow for therapy appropriate exercises. Back precautions due to back fx. Referral Physician: Roxana Referral Reason: Activity Tolerance, Self Care, Evaluation/Treatment, Strengthening/ROM Medical History Pertinent Medical History: HTN Additional Medical History Neck surgery, stenosis, fibromyalgia. Current History Pt. fell on Thanksgiving. States that she fx her right humerus and felt her back "pop." Reviewed History: Yes Social History Home: Single Level Current Living Status: Alone Entry Into Home: Level Entry Pt. has 5 hours of caregiver support, 5 days per week. They typically help her cook and clean. However, now due to her fx, they help her bathe and dress. She states that she is eligible for increased amount. ADL-Prior Level of Function SCALE: Activities may be completed with or without assistive devices. 7-Qgqypfvuds-ectaqty completes the activity by him/herself with no assistance from a helper. 5-Set-up or Clean-up Assistance-helper sets up or cleans up; patient completes activity. [place] assists only prior to or following the activity. 4-Supervision or Touching Assistance-helper provides verbal cues and/or touching/steadying and/or contact guard assistance as patient completes activity. Assistance may be provided throughout the activity or intermittently. 3-Partial/Moderate Assistance-helper does LESS THAN HALF the effort. [place] lifts, holds or supports trunk or limbs, but provides less than half the effort. 2-Substantial/Maximal Assistance-helper does MORE THAN HALF the effort. [place] lifts or holds trunk or limbs and provides more than half the effort. 8-Attmabcqu-ndftbt does ALL the effort. Patient does none of the effort to complete the activity. Or, the assistance of 2 or more helpers is required for the patient to complete the activity. If activity was not attempted, code reason: 7-Patient Refused. 9-Not Applicable-not attempted and the patient did not perform the activity before the current illness, exacerbation or injury. 10-Not Attempted due to Environmental Limitations-(lack of equipment, weather restraints, etc.). 88-Not Attempted due to Medical Conditions or Safety Concerns. ADL PLOF Comments Pt. states that due to her back stenosis and fibromyalgia, she receives caregiver support. They cook and clean for her, 5 hours per day, 5 days per week. She states that she was able to bathe and dress herself, as well as drive. Self Care: Unknown Functional Cognition: Independent DME/Equipment: Bath Chair, Grab Bars, Tub/Shower DME/Equipment Comments Pt. has a quad cane but does not use it. Drive Self: Yes OT Current Status Subjective Pt. does not report pain level. Appearance Pt. alert and oriented in bed, and trying to make a phone call. Mental Status/Objective Patient Orientation: Person, Place, Time, Situation Current Hand Dominance: Left Upper Extremity ROM Left- WFL Right- NT due to humeral fx. ADL-Treatment Eating (QC): 5 (Pt. reports no difficulty after set up.) Oral Hygiene (QC): 7 (Already completed) Shower/Bathe Self (QC): 9 (Pt. receiving help previously.) Upper Body Dressing (QC): 88 Lower Body Dressing (QC): 88 On/Off Footwear (QC): 7 (Declines at this time but reports that she has been able to bring her feet up to her to don/doff shoes and socks.) Toileting Hygiene (QC): 7 Toilet Transfer (QC): 7 Other Treatments Per PT, pt. is able to transfer with Mod I. OT talked with pt. about previous history, goals, and skilled needs now. At this time, pt. reports that she has difficulty donning UE/LE clothing, but was receiving support. OT educates pt. on purpose of ADL equipment and will educate her on practical use tomorrow. OT educated pt. on back safety and back precautions. Pt. currently has on arm brace and this OT will clarify tomorrow any specific exercises that are to be conducted, as pt. reports she is to have another x-ray. Pt. reports that she is having no difficulty toileting, feeding self, brushing hair/teeth, or transf erring in/out of bed. Will bring back ADL equipment tomorrow and assess left UE exercises/ability. Education OT Patient Education: Correct positioning, Modified ADL techniques, Progress toward Goal/Update tx plan, Purpose of tx/functional activities, Reviewed precautions Teaching Recipient: Patient, Family Teaching Methods: Discussion Response to Teaching: Verbalize Understanding OT Intermediate Goals Intermediate Goals Time Frame: Jun 02, 2019 Eating (QC): 6 Oral Hygiene (QC): 6 Toileting Hygiene (QC): 6 Shower/Bathe Self (QC): 4 Upper Body Dressing (QC): 5 Lower Body Dressing (QC): 5 On/Off Footwear (QC): 6 Additional Goals: 1-Demonstrate ADL Tasks, 2-Verbalize Understanding, 3-ImproveStrength/Darrion 1=Demonstrate adherence to instructed precautions during ADL tasks. 2=Patient will verbalize/demonstrate understanding of assistive devices/modifications for ADL. 3=Patient will improve strength/tolerance for activity to enable patient to perform ADL's. OT Education/Plan Problem List/Assessment Assessment: Decreased Activ Tolerance, Impaired I ADL's, Impaired Self-Care Skills, Restricted Funct UE ROM Discharge Recommendations Plan/Recommendations: Continue POC Therapy Discharge Recommendati: Post Acute OT Equpiment Recommendations-D/C: Hip Kit Treatment Plan/Plan of Care Treatment,Training & Education: Yes Patient would benefit from OT for education, treatment and training to promote independence in ADL's, mobility, safety and/or upper extremity function for ADL's. Plan of Care: ADL Retraining, UE Funct Exercise/Act Treatment Duration: Jun 02, 2019 Frequency: 5 times per week Estimated Hrs Per Day: .25 hour per day Agreement: Yes Rehab Potential: Good Time/GCodes Start Time: 15:55 Stop Time: 16:10 Total Time Billed (hr/min): 15 Billed Treatment Time 1, BRENDA ZALDIVAR OT May 26, 2019 16:22 POS
[2019-05-26 16:28] VITALS: BP 147/73
[2019-05-26] MEDS: DIVALPROEX EXT RELEASE 500 MG (DEPAKOTE ER) TAB PO SCH (20:15)
[2019-05-26] MEDS: buPROPion SR 150 MG (WELLBUTRIN SR) TAB PO SCH (20:16)
[2019-05-26 20:54] VITALS: BP 137/84
--- NOTE | 2019-05-26 21:11 | Progress Note ---
Subjective Subjective/Events-last exam Patient up with PT today. Feeling better but states that she still feels unsteady on her feet. Tolerating PO diet. Review of Systems Pulmonary: No Dyspnea, No Cough Cardiovascular: No: Chest Pain, Palpitations Gastrointestinal: No: Nausea, Vomiting, Abdominal Pain, Diarrhea, Constipation Musculoskeletal: shoulder pain, back pain Neurological: Weakness, Incoordination Objective Exam Last Set of Vital Signs Vital Signs Date Time Temp Pulse Resp B/P (MAP) Pulse Ox O2 Delivery O2 Flow Rate FiO2 05/26/19 16:28 37.3 90 22 147/73 (97) 97 Room Air Capillary Refill : Less Than 3 SecondsLess Than 3 Seconds I&O Intake and Output 05/26/19 00:00 Intake Total 1910 ml Output Total 1600 ml Balance 310 ml Intake Oral 910 ml IV Total 1000 ml Output Urine Total 1600 ml # Voids 2 # Bowel Movements 2 General: Alert, Oriented X3, Cooperative, No Acute Distress HEENT: Mucous Memb Moist/[place] Lungs: Clear to Auscultation, Normal Air Movement Heart: Regular Rate, No Murmurs Abdomen: Normal Bowel Sounds, Soft, No Tenderness, No Masses Extremities: No Edema, No Tenderness/Swelling Skin: No Rashes, No Breakdown Neuro: Sensation Intact, Cranial Nerves 3-12 NL Results/Procedures Lab Laboratory Tests 05/26/19 05:15: White Blood Count 11.6H, Red Blood Count 3.99L, Hemoglobin 12.3, Hematocrit 37, Mean Corpuscular Volume 93, Mean Corpuscular Hemoglobin 31, Mean Corpuscular Hemoglobin Concent 33, Red Cell Distribution Width 12.3, Platelet Count 356, Mean Platelet Volume 10.4, Neutrophils (%) (Auto) 54, Lymphocytes (%) (Auto) 34, Monocytes (%) (Auto) 12, Eosinophils (%) (Auto) 0, Basophils (%) (Auto) 0, Neutrophils # (Auto) 6.2, Lymphocytes # (Auto) 3.9, Monocytes # (Auto) 1.4H, Eosinophils # (Auto) 0.0, Basophils # (Auto) 0.0, Sodium Level 139, Potassium Level 4.1, Chloride Level 103, Carbon Dioxide Level 25, Anion Gap 11, Blood Urea Nitrogen 10, Creatinine 0.67, Estimat Glomerular Filtration Rate > 60, BUN/Creatinine Ratio 15, Glucose Level 82, Calcium Level 8.8, Corrected Calcium 9.1, Total Bilirubin 0.3, Aspartate Amino Transf (AST/SGOT) 13, Alanine Aminotransferase (ALT/SGPT) 9, Alkaline Phosphatase 97, Total Protein 6.1L, Albumin 3.6 Assessment/Plan Assessment/Plan (1) L1 vertebral fracture Status: Acute Assessment & Plan: 05/26: Does not meet IRF criteria, will continue to work with PT and consider HH with PT upon discharge Qualifiers: Qualified Codes: S32.019A - Unspecified fracture of first lumbar vertebra, initial encounter for closed fracture (2) Right humeral fracture Status: Acute Assessment & Plan: 05/26: Seen by ortho as outpatient Qualifiers: Qualified Codes: S42.214D - Unspecified nondisplaced fracture of surgical neck of right humerus, subsequent encounter for fracture with routine healing (3) Hyponatremia Status: Resolved (4) Depression Status: Acute Assessment & Plan: 05/26: Continue home meds Qualifiers: Qualified Codes: F33.1 - Major depressive disorder, recurrent, moderate (5) Tobacco abuse Status: Chronic (6) DVT prophylaxis Status: Acute Assessment & Plan: - Lovenox Clinical Quality Measures DVT/VTE Risk/Contraindication: Risk Factor Score Per Nursin RFS Level Per Nursing on Admit: 4+=Very High CARISSA SORIANO MD May 26, 2019 21:11 POS
[2019-05-27 00:48] VITALS: BP 166/79
[2019-05-27] MEDS: KETOROLAC 15 MG/ML VIAL IV PRN ×2 (04:49→13:17)
[2019-05-27] MEDS: CATHETER FLUSH 10 ML SYR IV SCH (04:49)
[2019-05-27 06:50] LABS: BASOPHILS # (AUTO) 0.1 10^3/uL (0.0-0.1); BASOPHILS % (AUTO) 1 % (0-10); EOSINOPHILS # (AUTO) 0.1 10^3/uL (0.0-0.3); EOSINOPHILS % (AUTO) 1 % (0-10); HEMATOCRIT 38 % (35-52); HEMOGLOBIN 12.9 G/DL (11.5-16.0); LYMPHOCYTES # (AUTO) 4.2 X 10^3 (1.0-4.0); LYMPHOCYTES % (AUTO) 45 % (12-44); MEAN CORPUSCULAR HEMOGLOBIN 32 PG (25-34); MEAN CORPUSCULAR HGB CONC 34 G/DL (32-36); MEAN CORPUSCULAR VOLUME 95 FL (80-99); MEAN PLATELET VOLUME 10.3 FL (7.4-10.4); MONOCYTES # (AUTO) 1.3 X 10^3 (0.0-1.0); MONOCYTES % (AUTO) 13 % (0-12); NEUTROPHILS # (AUTO) 3.9 X 10^3 (1.8-7.8); NEUTROPHILS % (AUTO) 41 % (42-75); PLATELET COUNT 337 10^3/uL (130-400); RED CELL DISTRIBUTION WIDTH 12.5 % (10.0-14.5); WHITE BLOOD COUNT 9.4 10^3/uL (4.3-11.0)
[2019-05-27 07:13] LABS: BUN/CREATININE RATIO 16; CALCIUM 8.8 MG/DL (8.5-10.1); CARBON DIOXIDE 23 MMOL/L (21-32); CHLORIDE 102 MMOL/L (98-107); CREATININE SERUM 0.64 MG/DL (0.60-1.30); GFR ESTIMATED > 60; GLUCOSE 96 MG/DL (70-105); POTASSIUM 4.1 MMOL/L (3.6-5.0); SODIUM 137 MMOL/L (135-145)
[2019-05-27 07:21] LABS: SMEAR SCAN COMMENT YES
[2019-05-27 08:00] VITALS: BP 160/97
[2019-05-27] MEDS ORDERED: [UNRECOGNIZED DRUG - OTHER] PO SCH (09:00)
[2019-05-27] MEDS: BACLOFEN 10 MG (LIORESAL) TAB PO SCH (09:59)
[2019-05-27] MEDS: ENOXAPARIN 40 MG/0.4 ML (LOVENOX) SYR SC SCH (09:59)
[2019-05-27] MEDS: buPROPion SR 150 MG (WELLBUTRIN SR) TAB PO SCH (09:59)
[2019-05-27] MEDS: NICOTINE 14 MG (NICODERM) PATCH TD SCH (09:59)
[2019-05-27] MEDS: LACTULOSE SYRUP 10GM/15ML (ENULOSE) 30ML UDC PO SCH (09:59)
[2019-05-27] MEDS: GABAPENTIN 300 MG (NEURONTIN) CAP PO SCH (09:59)
[2019-05-27] MEDS: NICOTINE PATCH REMOVAL TP SCH (10:13)
--- NOTE | 2019-05-27 10:37 | NUR ---
CM FINALIZED DISCHARGE PLAN: Patient is dismissing to home today with [facility]. Choice form presented to patient et she has elected [facility] for her provider of Physical Therapy. Choice form signed et placed on her chart. The star rating of the [facility] agencies was also given to the patient. She reports that she has a four point cane at home that she will be using et denies a need for a walker d/t unable to use her right arm to assist in ambulation with that. Visited with the patient et doctor et doctor agreed that the four point cane will be acceptable for patient to use. HHC: [facility]. Contacted [facility] et they will accept the patient on service. Referral faxed to them as well. DME: Denies any equipment needs other than she would like a shower chair. We discussed out of pocket cost et also going to the [employer] to see if they have anything available for her to use. She is familiar with this process et will do that if she feels she needs a shower chair. She also reports that a friend has one she can use too. No further interventions noted at this time.
--- NOTE | 2019-05-27 11:35 | Physical Therapy Daily Note ---
PT Daily Note-Current Subjective Patient agrees to PT. She reports she is going home on this date with home health. Pain Numeric Pain Scale: 5-Moderate Pain Location: Right Location Body Site: Shoulder Pain Description: Acute Mental Status Patient Orientation: Normal For Age Transfers SCALE: Activities may be completed with or without assistive devices. 0-Engowazlut-uytlatl completes the activity by him/herself with no assistance from a helper. 5-Set-up or Clean-up Assistance-helper sets up or cleans up; patient completes activity. [place] assists only prior to or following the activity. 4-Supervision or Touching Assistance-helper provides verbal cues and/or touching/steadying and/or contact guard assistance as patient completes activity. Assistance may be provided throughout the activity or intermittently. 3-Partial/Moderate Assistance-helper does LESS THAN HALF the effort. [place] lifts, holds or supports trunk or limbs, but provides less than half the effort. 2-Substantial/Maximal Assistance-helper does MORE THAN HALF the effort. [place] lifts or holds trunk or limbs and provides more than half the effort. 8-Vjpmuuptt-lyghql does ALL the effort. Patient does none of the effort to complete the activity. Or, the assistance of 2 or more helpers is required for the patient to complete the activity. If activity was not attempted, code reason: 7-Patient Refused. 9-Not Applicable-not attempted and the patient did not perform the activity before the current illness, exacerbation or injury. 10-Not Attempted due to Environmental Limitations-(lack of equipment, weather restraints, etc.). 88-Not Attempted due to Medical Conditions or Safety Concerns. Roll Left & Right (QC): 6 Sit to Lying (QC): 6 Lying to Sitting/Side of Bed(Q: 6 Sit to Stand (QC): 6 Weight Bearing Right Lower Extremity: Right Weight Bearing/Tolerated Left Lower Extremity: Left Weight Bearing/Tolerated Gait Training Does the Patient Walk?: Yes Distance: 250' Walk 10 feet (QC): 6 Walk 50 ft with 2 Turns(QC): 6 Walk 150 ft (QC): 6 Gait Assistive Device: Cane Small Base Quad safe and functional with SBQC (has at home from prior use) Assessment Patient tolerated treatment well and will dismiss to home on this date. PT Stitch Welder Goals Stitch Welder Goals PT Long-Term Goals Time Frame: May 31, 2019 Roll Left & Right (QC): 3 (min A) Sit to Lying (QC): 3 (Sumaya) Lying-Sitting on Side/Bed(QC): 3 (min A) Sit to Stand (QC): 3 (Sumaya) Chair/Fbh-oy-Oxrcd Xfer(QC): 3 (Sumaya) Toilet Transfer (QC): 9 Car Transfer (QC): 9 Does the Patient Walk: No and Walking Goal IS indicated Walk 10 feet (QC): 3 (Sumaya) Walk 50ft with 2 Turns (QC): 88 Walk 150 ft (QC): 88 Walking 10ft on Uneven Surface: 88 1 Step (curb) (QC): 88 4 Steps (QC): 88 12 Steps (QC): 88 Picking up an Object (QC): 88 Does the Pt use WC or Scooter?: No Type: N/A Type: N/A PT Plan Treatment/Plan Treatment Plan: Discontinue PT, goals met Treatment Plan: Bed Mobility, Concurrent Therapy, Education, Functional Activity Darrion, Functional Strength, Gait, Safety, Therapeutic Exercise, Transfers Treatment Duration: May 31, 2019 Frequency: 6 times per week Estimated Hrs Per Day: .25 hour per day Patient and/or Family Agrees t: Yes Time/GCodes Time In: 1042 Time Out: 1057 Total Billed Treatment Time: 15 Total Billed Treatment 1 visit FA 15 min PRINCESS ACKERMAN PT May 27, 2019 11:35 POS
--- NOTE | 2019-05-27 11:41 | D/C HH Face to Face Order ---
Discharge Summary Reconcile Patient Problems Problems Reviewed?: Yes Instructions for Patient [employer] Assessment/Instructions Uncontrolled Pain L1 compression fracture Right Humeral Fracture Hyponatremia Depression Tobacco Abuse Physician to follow Patient: Hipolito Discharge Diet for Home: No Restrictions Hospital Course Date of Admission: May 23, 2019 at 18:14 Admission Diagnosis : Family Physician/Provider: Elif Hancock Date of Discharge: 05/27/19 Discharge Diagnosis: L1 Compression Fracture Right Humerus Fracture Uncontrolled Pain Hyponatremia Depression Tobacco Abuse Hospital Course: 63 yo F that was admitted for uncontrolled pain from L1 compression fracture and Right humerus fracture. Patient was having troubles getting up and walking due to the pain. She is following Dr Bae for ortho as outpatient and has appt with him tomorrow to re evaluate the humerus fracture. During the admission her pain was better controlled. She was able to get up and walk with a quad cane and feels comfortable about going home with continued PT. Labs and Pending Lab Test: Laboratory Tests 05/27/19 06:13: White Blood Count 9.4, Red Blood Count 4.03L, Hemoglobin 12.9, Hematocrit 38, Mean Corpuscular Volume 95, Mean Corpuscular Hemoglobin 32, Mean Corpuscular Hemoglobin Concent 34, Red Cell Distribution Width 12.5, Platelet Count 337, Mean Platelet Volume 10.3, Neutrophils (%) (Auto) 41L, Lymphocytes (%) (Auto) 45H, Monocytes (%) (Auto) 13H, Eosinophils (%) (Auto) 1, Basophils (%) (Auto) 1, Neutrophils # (Auto) 3.9, Lymphocytes # (Auto) 4.2H, Monocytes # (Auto) 1.3H, Eosinophils # (Auto) 0.1, Basophils # (Auto) 0.1, Sodium Level 137, Potassium Level 4.1, Chloride Level 102, Carbon Dioxide Level 23, Anion Gap 12, Blood Urea Nitrogen 10, Creatinine 0.64, Estimat Glomerular Filtration Rate > 60, BUN/Creatinine Ratio 16, Glucose Level 96, Calcium Level 8.8, Smear Scan YES Home Meds Active Reported Pantoprazole Sodium 40 Mg Tablet.dr 40 Mg PO DAILY Dicyclomine HCl 20 Mg Tablet 20 Mg PO TID Gas-X (Simethicone) 125 Mg Tab.chew 125 Mg PO PRN PRN Ocuvite Adult 50 Plus Softgel (C,E,Zinc,Copper 11/Xbnwy6n/Lut) 1 Each Capsule 1 Each PO DAILY One Daily For Women 50+ Adv Tb (Multivitamins-Min/FA/Ginkgo) 1 Each Tablet 1 Each PO DAILY Selenium (Selenomethionine) 200 Mcg Tablet 200 Mcg PO DAILY Calcium (Calcium Carbonate) 600 Mg Tablet 1,200 Mg PO DAILY Probiotic (L.acidoph & Paracasei,B.lactis) 1 Each Capsule 1 Each PO DAILY Divalproex Sodium ER (Divalproex Sodium) 500 Mg Tab.er.24h 1,000 Mg PO HS TAKES 2 (500MG) TABS AT BEDTIME Mometasone Furoate 17 Gm [place].pump 1 [place] NSEACH DAILY Wellbutrin Xl (Bupropion HCl) 300 Mg Tab.er.24h 300 Mg PO DAILY Tramadol HCl 50 Mg Tablet 50 Mg PO Q6H PRN Miralax (Polyethylene Glycol 3350) 17 Gm Powd.pack 17 Gm PO PRN Vagifem (Estradiol) 10 Mcg Tablet 10 Mcg VG MOFR Levocetirizine Dihydrochloride 5 Mg Tablet 5 Mg PO HS Diclofenac Sodium 100 Gm Gel..gram. TP QID PRN Baclofen 20 Mg Tablet 20 Mg PO BID PRN Ibuprofen 600 Mg Tablet 600 Mg PO Q6H PRN Gabapentin 300 Mg Capsule 300 Mg PO BID Vitamin D (Cholecalciferol (Vitamin D3)) 1,000 Unit Tablet 3,000 Unit PO DAILY Hydroxyzine HCl 10 Mg Tablet 10 Mg PO TID PRN Fetzima (Levomilnacipran Hydrochloride) 120 Mg Cap.sa.24h 120 Mg PO DAILY Estradiol Tablet (Estradiol) 2 Mg Tablet 2 Mg PO DAILY Patient Allergies: Coded Allergies: iodine (Verified Allergy, Severe, HIVES, 05/24/19) morphine (Verified Allergy, Severe, HIVES, 05/24/19) hydrocodone (Verified Allergy, Intermediate, Itching, 05/24/19) oxycodone (Verified Allergy, Intermediate, Itching, 05/24/19) Height (Feet): 5 Height (Inches): 4.00 Weight (Pounds): 165 Weight (Ounces): 0.0 Continued Medications: Baclofen (Baclofen) 20 Mg Tablet 20 MG PO BID PRN for MUSCLE SPASMS, TAB Bupropion HCl (Wellbutrin Xl) 300 Mg Tab.er.24h 300 MG PO DAILY, TAB C,E,Zinc,Copper 11/Nnqqj1m/Lut (Ocuvite Adult 50 Plus Softgel) 1 Each Capsule 1 EACH PO DAILY, CAP Calcium Carbonate (Calcium) 600 Mg Tablet 1200 MG PO DAILY, TAB Cholecalciferol (Vitamin D3) (Vitamin D) 1,000 Unit Tablet 3000 UNIT PO DAILY, TAB Dicyclomine HCl (Dicyclomine HCl) 20 Mg Tablet 20 MG PO TID Divalproex Sodium (Divalproex Sodium ER) 500 Mg Tab.er.24h 1000 MG PO HS TAKES 2 (500MG) TABS AT BEDTIME Estradiol (Estradiol Tablet) 2 Mg Tablet 2 MG PO DAILY, TAB Estradiol (Vagifem) 10 Mcg Tablet 10 MCG VG MoFr, TAB Gabapentin (Gabapentin) 300 Mg Capsule 300 MG PO BID, CAP Hydroxyzine HCl (Hydroxyzine HCl) 10 Mg Tablet 10 MG PO TID PRN for ANXIETY, TAB Ibuprofen (Ibuprofen) 600 Mg Tablet 600 MG PO Q6H PRN for PAIN-MILD, TAB L.acidoph & Paracasei,B.lactis (Probiotic) 1 Each Capsule 1 EACH PO DAILY, CAP Levocetirizine Dihydrochloride (Levocetirizine Dihydrochloride) 5 Mg Tablet 5 MG PO HS, TAB Levomilnacipran Hydrochloride (Fetzima) 120 Mg Cap.sa.24h 120 MG PO DAILY, CAP Mometasone Furoate (Mometasone Furoate) 17 Gm [place].pump 1 [place] NSEACH DAILY Multivitamins-Min/FA/Ginkgo (One Daily For Women 50+ Adv Tb) 1 Each Tablet 1 EACH PO DAILY, TAB Pantoprazole Sodium (Pantoprazole Sodium) 40 Mg Tablet.dr 40 MG PO DAILY Polyethylene Glycol 3350 (Miralax) 17 Gm Powd.pack 17 GM PO PRN, EACH Selenomethionine (Selenium) 200 Mcg Tablet 200 MCG PO DAILY, TAB Simethicone (Gas-X) 125 Mg Tab.chew 125 MG PO PRN PRN for GAS, TAB Tramadol HCl (Tramadol HCl) 50 Mg Tablet 50 MG PO Q6H PRN for PAIN-MILD (1-4), TAB Discontinued Medications: Diclofenac Sodium (Diclofenac Sodium) 100 Gm Gel..gram. TP QID PRN for BACK PAIN, EA Home Health Need/Face to Face Date of Face to Face: May 27, 2019 Clinical Findings: Generalized weakness and fatigue, Instability, Muscle weakness, Unsteady gait HOSPTIAL F.U APPT WITH ELIF HANCOCK ON Sun @ 120pm I have seen Pt wkki-py-huoq: Yes Discharged To: Home Diagnosis/Conditions: See Problem List Patient is Homebound due to: Wilman fall risk due to instabilty, Muscle weakness, Pain w/ambulation Homebound Status Due to the above stated illness, injury or surgical procedure (medical condition or diagnosis) and associated clinical findings, the patient is homebound because of his/her inability to leave home except with aid of a supportive device and/or person AND leaving the home requires a considerable and taxing effort or is medically contraindicated. Pt req the following assistanc: Cane Home Health Nursing Orders Home Health Services Order: Physical Therapy-Evaluate & Treat Therapy Orders Therapy Orders: Physical Therapy, PT to assess for OT Therapy Specific Orders: Eval assistive deivces, Teach enviro modifications/safety, Gait training, Increase strength/endurance Certify Stmt I certify that this patient is under my care and that I, a nurse practitioner or a physician; a integration assistant working with me, had a face to face encounter that - meets the physician face to face encounter requirements with this patient as dated. Discharge Physical Exam General: Alert, Oriented X3, Cooperative, No Acute Distress Lungs: Clear to Auscultation, Normal Air Movement Heart: Regular Rate, No Murmurs Abdomen: Normal Bowel Sounds, Soft, No Tenderness, No Masses Extremities: Other (Right arm immobilized) Skin: No Rashes, No Breakdown Neuro: Sensation Intact, Cranial Nerves 3-12 NL, Other (gait with cane) CARISSA SORIANO MD May 27, 2019 11:41 POS
[2019-05-27 13:40] VITALS: BP 160/97
--- NOTE | 2019-05-27 13:58 | Occupational Ther Daily Note ---
OT Current Status-Daily Note Subjective No pain reported. Appearance Pt. in bed and and talking with visitor. Agrees to work with OT. Mental Status/Objective Patient Orientation: Person, Place, Time, Situation ADL-Treatment Therapy Code Descriptions/Definitions Functional Lynn Measure: 0=Not Assessed/NA 4=Minimal Assistance 1=Total Assistance 5=Supervision or Setup 2=Maximal Assistance 6=Modified [place] 3=Moderate Assistance 7=Complete IndependenceSCALE: Activities may be completed with or without assistive devices. 2-Glmauzvjdy-ypyvlzu completes the activity by him/herself with no assistance from a helper. 5-Set-up or Clean-up Assistance-helper sets up or cleans up; patient completes activity. [place] assists only prior to or following the activity. 4-Supervision or Touching Assistance-helper provides verbal cues and/or touching/steadying and/or contact guard assistance as patient completes activity. Assistance may be provided throughout the activity or intermittently. 3-Partial/Moderate Assistance-helper does LESS THAN HALF the effort. [place] lifts, holds or supports trunk or limbs, but provides less than half the effort. 2-Substantial/Maximal Assistance-helper does MORE THAN HALF the effort. [place] lifts or holds trunk or limbs and provides more than half the effort. 0-Fukzwlsxo-czvhbm does ALL the effort. Patient does none of the effort to complete the activity. Or, the assistance of 2 or more helpers is required for the patient to complete the activity. If activity was not attempted, code reason: 7-Patient Refused. 9-Not Applicable-not attempted and the patient did not perform the activity before the current illness, exacerbation or injury. 10-Not Attempted due to Environmental Limitations-(lack of equipment, weather restraints, etc.). 88-Not Attempted due to Medical Conditions or Safety Concerns. Eating (QC): 6 (Pt. finishing breakfast with no difficulty.) Lower Body Dressing (QC): 6 (Pt. able to bring feet up to her, doff socks, and don them. ) Toileting Hygiene (QC): 6 (Pt. ambulated to toilet with quad cane, toileted with no difficulty, and ambulated back to bed.) Toilet Transfer (QC): 6 Other Treatment Pt. agrees to treatment. OT brought ADL equipment in to practice with pt. if she needed it, due to fx of right humerus and L2 fx. Pt. is able to demonstrate ability to bring feet up to her while seated, instead of bending over to reach feet. Pt. does well with back safety. Pt. did not need AE for ADL skills. Pt. able to take right UE out of forearm sling, and complete gentle AROM in bicep flexion. Pt. reports that she feels "stiff" but is still able to flex elbow gently. Pt. has no difficulty making fist, or with wrist extension. Will continue to monitor UE exercises. Education OT Patient Education: Correct positioning, Exercise program, Home exercise pro gram, Instructions don/doff splint/brace, Modified ADL techniques, Progress toward Goal/Update tx plan, Purpose of tx/functional activities, Reviewed precautions, Rehab process, Transfer techniques, Use of adapted equipment Teaching Recipient: Patient, Family Teaching Methods: Demonstration, Discussion Response to Teaching: Verbalize Understanding, Return Demonstration OT Shelter Goals Senior Net Web Developer Goals Time Frame: Jun 02, 2019 Eating (QC): 6 Oral Hygiene (QC): 6 Toileting Hygiene (QC): 6 Shower/Bathe Self (QC): 4 Upper Body Dressing (QC): 5 Lower Body Dressing (QC): 5 On/Off Footwear (QC): 6 Additional Goals: 1-Demonstrate ADL Tasks, 2-Verbalize Understanding, 3- ImproveStrength/Darrion 1=Demonstrate adherence to instructed precautions during ADL tasks. 2=Patient will verbalize/demonstrate understanding of assistive devices/modifications for ADL. 3=Patient will improve strength/tolerance for activity to enable patient to perform ADL's. OT Education/Plan Problem List/Assessment Assessment: Decreased Activ Tolerance, Impaired I ADL's Discharge Recommendations Plan/Recommendations: Continue POC Comment Pt. would benefit from shower chair for home use to increase safety and independence in shower setting. Treatment Plan/Plan of Care Treatment,Training & Education: Yes Patient would benefit from OT for education, treatment and training to promote independence in ADL's, mobility, safety and/or upper extremity function for ADL's. Plan of Care: ADL Retraining, UE Funct Exercise/Act Treatment Duration: Jun 02, 2019 Frequency: 5 times per week Estimated Hrs Per Day: .25 hour per day Agreement: Yes Rehab Potential: Good Time/GCodes Start Time: 08:55 Stop Time: 09:20 Total Time Billed (hr/min): 25 Billed Treatment Time 1, ADL x 15minutes, Ex x 10minutes BRENDA NICOLAS OT May 27, 2019 13:57 POS
--- OUTSIDE RECORDS SUMMARY | 2019-06-19 05:00 | XMS REPORT | Clinical Summary ---
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 Role Phone Christina Black RN Unavailable Unavailable Tia Levi RN Unavailable Unavailable Ismael Mena MD Unavailable George Gleason MD Unavailable Lobito Blum MD Unavailable Reyes Tee MD Unavailable Unavailable Jonas Torres DO Unavailable Emergency, Nurse RN Unavailable Unavailable Emily Diez RN Unavailable Unavailable Yoselin Bradley RN Unavailable Unavailable Lauri Baldwin MD Unavailable Gabriel Wilson MD Unavailable Unavailable Elif Gallardo APRN PCP Mariposa Dougherty MD Unavailable Victoriano Loja MD Unavailable Source Comments Some departments are not documenting in the electronic medical record. If you d o not see the information that you expected, contact Release of Information in [facility] Health Information Management department at [phone] for further assistan ce in locating additional records.[facility] Allergies Comments Active Allergy Reactions Severity Noted Date topical Iodine HIVES Medium 06/18/1974 Morphine HIVES Medium 06/18/1974 Medications End Date Status Medication Sig Dispensed Refills Start Date Active levomilnacipran (FETZIMA) Take 120 mg 0 120 mg Cs24 by mouth daily. Active cholecalciferol (VITAMIN Take 2,000 0 D-3) 1,000 units tablet Units by mouth daily. Pt states taking 2000 units daily Active magnesium oxide 400 mg Take 1 Cap by 30 Cap 1 0 cap mouth daily. 5 Additional information Patient taking differently: 500 mg Oral SEE ADMIN INSTRUCTIONS, Takes one every morning. May also take as needed for headache., Reported on 03/19/2015 11:21 AM Active estradiol (ESTRACE) 2 mg Take 2 mg by 0 tablet mouth every morning. Active hydrOXYzine (ATARAX) 10 Take 10 mg by 0 mg tablet mouth three times daily as needed for Itching. Active cyclobenzaprine TAKE ONE 60 Tab 6 (FLEXERIL) 10 mg tablet TABLET BY 5 MOUTH TWICE DAILY Active ibuprofen (MOTRIN) 600 mg Take 600 mg 0 tablet by mouth every 6 hours as needed for Pain. Active estradiol(+) (VAGIFEM) 10 Insert or 0 mcg vaginal tablet Apply 10 mcg to vaginal area twice weekly. Insert one tablet vaginally daily for two weeks; then insert one tablet twice weekly. Active cyanocobalamin (VITAMIN Inject 1 mL 0 B-12, RUBRAMIN) 1,000 to area(s) as mcg/mL injection directed every 30 days. Pt states she takes 5000 mcg SubQ daily. Active Lactobacillus rhamnosus Take by 0 GG (LACTOBACILLUS mouth daily RHAMNOSUS (GG)) 15 with billion cell cpSP breakfast. Active DIVALPROEX SODIUM Take 1,000 mg 0 (DEPAKOTE PO) by mouth at bedtime daily. Active MELATONIN PO Take 5 mg by 0 mouth at bedtime daily. Active pantoprazole DR 0 (PROTONIX) 20 mg tablet 7 Active loratadine (CLARITIN) 10 0 mg tablet 7 Active divalproex (DEPAKOTE ER) 0 500 mg ER tablet 7 Active QNASL 80 mcg/actuation 0 nasal spray 7 Active diclofenac(+) (VOLTAREN) Apply 2 g 1 Tube 5 0 1 % topical gel topically to 7 affected area four times daily. Active lidocaine-prilocaine apply small 30 g 3 07/19 (EMLA) 2.5-2.5 % topical amount to 7 cream affected area Active fluticasone (FLOVENT HFA) Inhale 2 0 110 mcg/actuation inhaler puffs by mouth into the lungs twice daily. Active mirabegron(+) ER Take 25 mg by 0 (MYRBETRIQ ER) 25 mg mouth daily. tablet Active diazePAM (VALIUM) 5 mg Take 1 tablet 2 tablet 0 0 tabletIndications: by mouth as 8 anxiety Needed for Anxiety (Take 1 tablet by mouth 45 minutes before procedure for anxiety, if needed may take 2nd tablet just before procedure. 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 Active baclofen (LIORESAL) 20 mg TAKE 1 TABLET 3 01/16 tablet BY MOUTH 8 TWICE DAILY WITH FOOD OR MILK Active cetirizine (ZYRTEC) 10 mg Take 10 mg by 3 12/16 tablet mouth daily. 8 Active oxybutynin XL (DITROPAN Take 10 mg by 99 XL) 10 mg tablet mouth daily. 8 Active ergocalciferol (vitamin Take by 0 D2) (VITAMIN D PO) mouth. Active MULTIVITAMIN PO Take by 0 mouth. Active acetaminophen (TYLENOL Take by 0 ARTHRITIS PO) mouth. Active buPROPion XL (WELLBUTRIN Take 300 mg 0 08/29 XL) 150 mg tablet by mouth. 9 Active gabapentin (NEURONTIN) Take one 180 capsule 1 300 mg capsule capsule by 9 mouth twice daily. Active Problems Problem Noted Date Spinal stenosis of lumbosacral region 02/06/2018 Tendinopathy of right gluteus medius 02/06/2018 Greater trochanteric bursitis of right hip 8 Spondylosis of lumbosacral region without myelopathy or radiculopathy 02/06/2018 Chronic low back pain 09/26/2017 Neck pain 10/04/2016 History of fusion of cervical spine 10/04/2016 Myofascial pain 10/04/2016 Paresthesia 10/22/2014 Status migrainosus 10/22/2014 Cervical stenosis of spine 10/22/2014 Headache 09/24/2014 Positional vertigo 09/24/2014 Lytic bone lesions on xray 08/31/2014 Encounters Care Team Description Date Type Specialty Ger Cain MD Records Request 06/16/2019 Telephone Rehabilitation [employer] Ger Cain MD Care Coordination 05/26/2019 Telephone Rehabilitation [facility] [place] 05/23/2019 Hospital Radiology Encounter Ger Cain MD Care Coordination 05/22/2019 Telephone Rehabilitation [facility] Ger Arrington MD 03/19/2019 Refill Rehabilitation [facility] from Last 3 Months Family History Medical [...] Grandmother Sister Alive Son Alive Social History Date Tobacco Use Types Packs/Day Years Used Current Every Day Smoker Cigarettes 1 43 Smokeless Tobacco: Never Used Tobacco Cessation: Ready to Quit: No; Co unseling Given: No Drinks/Week oz/Week Comments Alcohol Use No Sex Assigned at Date Recorded Not on file Industry Job Start Date Occupation Not on file Not on file Not on file Travel End Travel History Travel Start No recent travel history available. Last Filed Vital Signs Reading Time Taken Comments Vital Sign 135/86 02/25/2019 1:27 PM CDT Blood Pressure 99 02/25/2019 12:26 PM CDT Pulse 36.7 C (98.1 F) 11/06/2017 12:59 PM CDT Temperature 18 02/25/2019 12:26 PM CDT Respiratory Rate 99% 02/25/2019 1:27 PM CDT Oxygen Saturation - - Inhaled Oxygen Concentration 77.1 kg (170 lb) 02/25/2019 12:26 PM CDT Weight 162.6 cm (5' 4") 02/25/2019 12:26 PM CDT Height 29.18 02/25/2019 12:26 PM CDT Body Mass Index Plan of Treatment Health Maintenance Due Date Last Done Comments HEPATITIS C SCREENING 1955 MEDICARE ANNUAL WELLNESS 1955 VISIT DTAP/TDAP VACCINES (1 - 12/28/1967 Tdap) HIV SCREENING 12/28/1971 PHYSICAL (COMPREHENSIVE) 1974 EXAM CERVICAL CANCER SCREENING 1986 BREAST CANCER SCREENING 1996 COLORECTAL CANCER 2006 SCREENING SHINGLES RECOMBINANT 2006 VACCINE (1 of 2) INFLUENZA VACCINE 01/16/2019 Procedures Comments Procedure Name Priority Date/Time Associated Diag nosis CT L-SPINE EXTERNAL Routine 05/23/2019 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 from Last 3 Months Insurance Type Payer Benefit Subscriber ID Effective Phone Address Plan / Dates Group Medicare MEDICARE MEDICARE xxxxxxxxxxx 2017-P PART A AND resent B Medicaid 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 necessary based on Dx 10/22/2014 4:32 PM Full Code 10/22/2014 4:24 AM Provider has discussed Code Status No, more discussi on w/Patient or Family? needed
--- OUTSIDE RECORDS SUMMARY | 2019-06-19 05:00 | XMS REPORT | Encounter Summary ---
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 Role Phone Christina Black RN Unavailable [...] Unavailable Reason for Visit * Reason Comments Records Request Encounter Details Care Team Description [place] [id number] [place] [address] Records Request 06/16/2019 Telephone [facility] [address] [place] [address] Social History Date Tobacco Use Types Packs/Day Years Used Current Every Day Smoker Cigarettes 1 43 Smokeless Tobacco: Never Used Drinks/Week oz/Week Comments Alcohol Use No Sex Assigned at Date Recorded Not on file Industry Job Start Date Occupation Not on file Not on file Not on file Travel End Travel History Travel Start No recent travel history available. documented as of this encounter Functional Status Date of Assessment Functional Status Response 09/25/2018 Does the patient have a hearing impairment: No 09/25/2018 Does the patient have a visual impairment: Yes 09/25/2018 Does the patient have impaired ambulation: Yes 09/25/2018 Does the patient have an activity of daily living No (ADL) impairment: 09/25/2018 Does the patient have an instrumental activity of Ye s daily living (IADL) impairment: Date of Assessment Cognitive Status Response 09/25/2018 Does the patient have a cognitive impairment: No documented as of this encounter Miscellaneous Notes * Telephone Encounter - Patti Devi - 06/16/2019 3:02 PM FIELD MANAGER Called [facility] [phone], they are refaxing report over no w. Awaiting fax. ----- Message from Ger Cain MD sent at 06/16/2019 12:43 PM FIELD MANAGER ----- Regarding: RE: Imaging Can we make sure we get the report? I do not see it. Guanakito Dsouza ----- Message ----- From: Patti Devi Sent: 06/02/2019 1:36 PM FIELD MANAGER To: Nikki Monsalve RN, Ger Cain MD Subject: Imaging CT L-Spine done at [facility] [place] has been uploaded into the [facility]. I have requested the report to be faxed to us. Hoping this gets done quickly. If you could review and let me know what to tell the patient. Thanks so much! D MANAGER documented in this encounter Plan of Treatment Not on filedocumented as of this encounter Visit Diagnoses Not on filedocumented in this encounter
--- OUTSIDE RECORDS SUMMARY | 2019-06-19 05:01 | XMS REPORT | Encounter Summary ---
Author Author [facility] Organization [facility] Address Unknown Phone Unavailable Care Team Providers Care Inorganic Chemist Name Role Phone Christina Black RN Unavailable [...] Unavailable Reason for Visit * Reason Comments Procedure LESI Pain * Pain Authorization (Routine) Referred By Contact Referred To Contact Status Reason Specialty Diagnoses / [place] [address] [place] [address] Bh Spn Pain Proc [address] [address] No Auth Needed Anesthesia Pain Diagnoses Lumbar radiculopathy Lumbar stenosis with neurogenic claudication P rocedures [facility] INJECT INTERLAM LMBR/SAC Encounter Details Care Team Description [place] [address] [place] [address] [phone] Lumbar radiculopathy; Lumbar stenosis with neurogenic claudication 02/25/2019 Procedure visit [facility] [address] [address] Social History Date Tobacco Use Types Packs/Day [...] history available. documented as of this encounter Last Filed Vital Signs Reading Time Taken Comments Vital Sign 135/86 02/25/2019 1:27 PM CDT Blood Pressure 99 02/25/2019 12:26 PM CDT Pulse - - Temperature 18 02/25/2019 12:26 PM CDT Respiratory Rate 99% 02/25/2019 1:27 PM CDT Oxygen Saturation - - Inhaled Oxygen Concentration 77.1 kg (170 lb) 02/25/2019 12:26 PM CDT Weight 162.6 cm (5' 4") 02/25/2019 12:26 PM CDT Height 29.18 02/25/2019 12:26 PM CDT Body Mass Index documented in this encounter Functional Status Date of Assessment [...] impairment: No documented as of this encounter Patient Instructions * Patient Instructions* Emily Barron RN - 02/25/2019 12:30 PM CDT Procedure Completed Today: Lumbar Epidural Steroid Injection Important information following your procedure today: You may drive today 1. Pain relief may not be immediate. It is possible you may even experience an i ncrease in pain during the first 24-48 hours followed by a gradual decrease of y our pain. 2. Though the procedure is generally safe and complications are rare, we do ask that you be aware of any of the following: ? Any swelling, persistent redness, new bleeding, or drainage from the site of t he injection. ? You should not experience a severe headache. ? You should not run a fever over 101 F. ? New onset of sharp, severe back & or neck pain. ? New onset of upper or lower extremity numbness or weakness. ? New difficulty controlling bowel or bladder function after the injection. ? New shortness of breath. If any of these occur, please call to report this occurrence to a nurse at [phone]. If you are calling after 4:00 p.m., on weekends or holidays please call [phone] and ask to have the resident physician protection agent for the physician betty oneill or go to your local emergency room. 3. You may experience soreness at the injection site. Ice can be applied at 20 m inute intervals. Avoid application of direct heat, hot showers or hot tubs today . 4. Avoid strenuous activity today. You may resume your regular activities and ex ercise tomorrow. 5. Patients with diabetes may see an elevation in blood sugars for 7-10 days aft er the injection. It is important to pay close attention to your diet, check you r blood sugars daily and report extreme elevations to the physician that treats your diabetes. 6. Patients taking a daily blood thinner can resume their regular dose this even ing. 7. It is important that you take all medications ordered by your pain physician. Taking medication as ordered is an important part of your pain care plan. If you cannot continue the medication plan, please notify the physician. Possible side effects to steroids that may occur: ? Flushing or redness of the face ? Irritability ? Fluid retention ? Change in womens menses The following medications were used: Lidocaine , Triamcinolone and Others MULT IHANCE documented in this encounter Progress Notes * Abbi Grove LPN - 02/25/2019 12:30 PM CDT Pain Procedure Plan Of Care Risk of injury related to procedure Patient identification, allergies verified, fall precautions implemented Risk of injury and impaired skin integrity Positioning devices applied as appropriate for procedure, patient transported [facility] staff assistance Management of Pain Pain assessment completed on arrival, PAR scoring following procedure and at dis charge, sedation administered as ordered, patient positioned for comfort Risk of anxiety related to procedure and disease process Patient education on procedure and expectations, provide coping support to patie nt, provide relaxation techniques Outcomes: The patient is free of injury during and following their procedure. Skin is intact and free of bruising. The patients pain is managed during their stay. Alleviation of patient anxiety exhibited. * Ger Cain MD - 02/25/2019 12:30 PM CDT [facility] INTERVENTIONAL PAIN PROCEDURE HISTORY AND PHYSICAL No chief complaint on file. HISTORY OF PRESENT ILLNESS: Sydnie Huffman is a 63 y.o. year old female who pr esents for injection. Denies fevers, chills, or recent hospitalizations. No al lergies to contrast, latex, seafood, iodine, or shellfish. Patient denies blood thinning medications. Medical History: Diagnosis Date Abnormal involuntary movement Altered mental status Arthritis Bleeding disorder (HCC) Bone disease Convulsion (HCC) Disorganized thinking Fibromyalgia Generalized headaches Heart palpitations Memory loss Multiple myeloma and immunoproliferative neoplasms (HCC) Neuropathy Other dysphagia 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 Stomach disorder Ulcer Surgical History: Procedure Laterality Date TONSILLECTOMY 1965 SALIVARY GLAND SURGERY 1971 salvilary duct stones OVARIAN CYST SURGERY 1975 CATARACT REMOVAL 2009 BARTHOLIN GLAND CYST EXCISION BLADDER SURGERY COLONOSCOPY GALLBLADDER SURGERY N/A bladder surg HX APPENDECTOMY HX HEART CATHETERIZATION HX HYSTERECTOMY family history includes Cancer in her father, sister, and son; Dementia in her m other; Hypertension in her father and mother; Migraines in her daughter; Neuropa thy in her mother; Seizures in her father; Stroke in her maternal grandmother, m other, and paternal grandmother; Thyroid Disease in her brother, mother, and sis ter. Social History Socioeconomic History Marital status: Single Spouse name: Not on file Number of children: Not on file Years of education: Not on file Highest education level: Not on file Occupational History Not on file Tobacco Use Smoking status: Current Every Day Smoker Packs/day: 1.00 Years: 43.00 Pack years: 43.00 Types: Cigarettes Smokeless tobacco: Never Used Substance and Sexual Activity Alcohol use: No Drug use: No Sexual activity: Not on file Other Topics Concern Not on file Social History Narrative Not on file Allergies Allergen Reactions Iodine HIVES topical Morphine HIVES There were no vitals filed for this visit. REVIEW OF SYSTEMS: 10 point ROS obtained and negative except for low back pain PHYSICAL EXAM: General: 63 y.o. female appears stated age, in no acute distress HEENT: Normocephalic, atraumatic Neck: No thyroidmegaly Cardiovascular: Well perfused Pulmonary: Unlabored respirations Extremities: No cyanosis, clubbing, or edema Skin: Warm and dry Psychiatric: Appropriate mood and affect Musculoskeletal: No atrophy Neurologic: Antigravity strength in all extremities IMPRESSION: 1. Lumbar radiculopathy 2. Lumbar stenosis with neurogenic claudication PLAN: L5-S1 IL DOREEN documented in this encounter Procedure Notes * Ger Cain MD - 02/25/2019 12:30 PM CDT Associated Order(s): [facility] SP[facility] INJECT INTERLAM LMBR/SAC Post-Procedure Diagnose(s): Lumbar radiculopathy; Lumbar stenosis with neurogeni c claudication Attending Surgeon: Ger Cain MD Anesthesia: Local Pre-Procedure Diagnosis: 1. Lumbar radiculopathy 2. Lumbar stenosis with neurogenic claudication Post-Procedure Diagnosis: 1. Lumbar radiculopathy 2. Lumbar stenosis with neurogenic claudication [facility] SPINE INJECT INTERLAM LMBR/SAC Procedure: epidural - interlaminar Laterality: n/a Location: lumbar DOREEN with imaging - L5-S1 Consent: Consent obtained: verbal and written Consent given by: patient Risks discussed: allergic reaction, bleeding, bruising, infection, nerve damage, no change or worsening in pain, weakness and reaction to medication Discussed with patient the purpose of the treatment/procedure, other ways of michael ating my condition, including no treatment/ procedure and the risks and benefits of the alternatives. Patient has decided to proceed with treatment/procedure. [place] Protocol: Relevant documents: relevant documents present and verified Test results: test results available and properly labeled Imaging studies: imaging studies available Required items: required blood products, implants, devices, and special equipmen t available Site marked: the operative site was marked Patient identity confirmed: Patient identify confirmed verbally with patient. Time out: Immediately prior to procedure a "time out" was called to verify the c orrect patient, procedure, equipment, arch support maker and site/side marked as requ ired Procedures Details: Indications: pain Prep: chlorhexidine Patient position: prone Estimated Blood Loss: minimal Specimens: none Number of Levels: 1 Approach: right paramedian Guidance: fluoroscopy Contrast: Procedure confirmed with contrast under live fluoroscopy. Needle and Epidural Catheter: tuohy Needle size: 20 G Injection procedure: Incremental injection and Negative aspiration for blood Patient tolerance: Patient tolerated the procedure well with no immediate compli cations. Pressure was applied, and hemostasis was accomplished. Estimated blood loss: none or minimal Specimens: none Patient tolerated the procedure well with no immediate complications. Pressure w as applied, and hemostasis was accomplished. DESCRIPTION OF PROCEDURE: The procedure risks and benefits were explained to th e patient and informed consent was obtained. The patient was positioned prone o n the fluoroscopy table with a pillow under the abdomen to help reduce lumbar lo rdosis. Blood pressure cuff and oxygen saturation monitors were attached and e patient was monitored throughout the entire procedure. The L5 vertebral level was identified with the use of fluoroscopy in the AP view. The skin was prepped using Chlorhexadine and draped in aseptic fashion. The skin and subcutaneous tissue were anesthetized using 3 mL of 1 percent lidocaine with a 27-gauge needl e. A 3.5 inch 22-gauge Tuohy needle was slowly advanced using AP view towards t he right paramedian L5-S1 epidural space. The latter part of the needle advance ment was guided with fluoroscopy in the lateral view. The epidural space was id entified using loss of resistance technique. After negative aspiration, 1 mL of Isovue contrast dye was injected. After epidural spread was seen, a solution c ontaining 80 mg of triamcinolone and 2 mL of normal saline was injected in incre ments. The stylet was reinserted and the needle was then removed. After the procedure, the patient's blood pressure, heart rate, oxygen saturation , and VAS were recorded in the chart. There were no complications. The patient tolerated the procedure well and was brought to recovery room for observation in stable condition and discharged with written discharge instructions. PLAN OF CARE: The patient is to followup in 6 weeks. The patient was advised to contact the [facility] for any of th e following 1. Fever, chills, or night sweats. 2. New onset of severe sharp pain. 3. Any new upper or lower extremity weakness or numbness. 4. Any questions regarding the procedure. documented in this encounter Plan of Treatment Not on filedocumented as of this encounter Procedures Comments Procedure Name Priority Date/Time Associated Diag nosis CA NJX DX/THER SBST Routine 02/25/2019 Lumbar rad iculopathy INTRLMNR LMBR/SAC W/IMG 12:30 PM CDT Lumbar stenos is with GDN neurogenic claudication documented in this encounter Results * [facility] INJECT INTERLAM LMBR/SAC (02/25/2019 12:30 PM CDT) Narrative Performed At Ger Cain MD 02/25/2019 2:10 PM OTHER O U[facility] LAB [facility] INJECT INTERLAM LMBR/SAC Procedure: epidural - interlaminar Laterality: n/a Location: lumbar DOREEN with imaging - L5- S1 Consent: Consent obtained: verbal and written Consent given by: patient Risks discussed: allergic reaction, ble eding, bruising, infection, nerve damage, no change or worsening in pain, weakness and reaction to medication Discussed with patient the purpose of t he treatment/procedure, other ways of treating my condition, including no treatment/ procedure and the risks and benefits of the alternatives. Patie nt has decided to proceed with treatment/procedure. [place]dick Protocol: Relevant documents: relevant documents present and verified Test results: test results available an d properly labeled Imaging studies: imaging studies availa ble Required items: required blood products , implants, devices, and special equipment available Site marked: the operative site was luara nicholson Patient identity confirmed: Patient danilo ntify confirmed verbally with patient. Time out: Immediately prior to procedur e a "time out" was called to verify the correct patient, procedure, equipme nt, arch support maker and site/side marked as required Procedures Details: Indications: pain Prep: chlorhexidine Patient position: prone Estimated Blood Loss: minimal Specimens: none Number of Levels: 1 Approach: right paramedian Guidance: fluoroscopy Contrast: Procedure confirmed with cont rast under live fluoroscopy. Needle and Epidural Catheter: tuohy Needle size: 20 G Injection procedure: Incremental inject ion and Negative aspiration for blood Patient tolerance: Patient tolerated th e procedure well with no immediate complications. Pressure was applied, an d hemostasis was accomplished. Performing Organization Address City/State/Zipcode Ph one Number OTHER OUTSIDE LAB documented in this encounter Visit Diagnoses Diagnosis Lumbar radiculopathy Thoracic or lumbosacral neuritis or rad iculitis, unspecified Lumbar stenosis with neurogenic claudic ation Spinal stenosis, lumbar region, with ne urogenic claudication documented in this encounter Administered Medications Action Date Dose Rate Site Medication Order MAR Action 02/25/2019 1:14 PM CDT 2.5 mL gadobenate dimeglumine (MULTIHANCE) Given injection 2.5 mL 2.5 mL, SEE ADMIN INSTRUCTIONS, ONCE, 1 dose, 02/25/19 at 1230, Route: Epidural NOTE: This is a HIGH ALERT Medication., 02/25/2019 1:14 PM CDT 80 mg triamcinolone acetonide (KENALOG-40) Given injection 80 mg 80 mg, Epidural, ONCE, 1 dose, 02/25/19 at 1230 documented in this encounter
--- OUTSIDE RECORDS SUMMARY | 2019-06-19 05:01 | XMS REPORT | Encounter Summary ---
Author Author [facility] Organization [facility] Address Unknown Phone Unavailable Care Team Providers Care Cable Swager Name Role Phone Christina Black RN Unavailable [...] * Reason Comments Medication Refill Encounter Details Care Team Description Date [place] [address] [place], [place] [id number] 03/19/2019 Refill [facility] Medicine [address] [place] [address] Social History Date Tobacco Use [...] Telephone Encounter - Nikki Monsalve RN - 03/19/2019 1:22 PM CDT Last OV 09/25/18 FUV scheduled 04/30/19 [facility] Medication Refill Protocol Orders, routing to Dr. Cain for review. documented in this encounter Plan of Treatment Not on filedocumented as of this encounter Visit Diagnoses Not on filedocumented in this encounter
--- OUTSIDE RECORDS SUMMARY | 2019-06-19 05:01 | XMS REPORT | Encounter Summary ---
Author Author [facility] Organization [facility] Address Unknown Phone Unavailable Care Team Providers Care Reference And Instruction Librarian Name Role Phone Christina Black RN Unavailable [...] Unavailable Victoriano Loja MD Unavailable Reason for Referral * Pain Authorization (Routine) Referred By Contact Referred To Contact Status Reason Specialty Diagnoses / [place] [address] [place] [address] [facility] Sp[facility] Pain Proc [address] [address] No Auth Needed Anesthesia Pain Diagnoses Lumbar radiculopathy Lumbar stenosis with neurogenic claudication P rocedures [facility] SPINE INJECT INTERLAM LMBR/SAC Reason for Visit * Reason Comments Pain sciatica and knee pain on t he right side. Middle back pain started last month. Has been hobbling around for a m onth. Other possible TPI- wants to disc uss * Pain Authorization (Routine) Referred By Contact Referred To Contact Status Reason Specialty Diagnoses / [place] [address] [place] [address] [id number] [address] [place] [address] No Auth Needed Rehabilitation Diagnoses Medicine Myofascial pain P rocedures [facility] SPINE TRIGGER POINT INJECTION Encounter Details Care Team Description [place] [address] [place] [address] [phone] Lumbar radiculopathy (Primary Dx); Lumbar stenosis with neurogenic claudication; Lumbar degenerative disc disease; Lumbar facet arthropathy 02/12/2019 Procedure visit [facility] [address] [place] [address] Social History Date Tobacco Use Types Packs/Day [...] Signs Reading Time Taken Comments Vital Sign 135/76 02/12/2019 12:58 PM CDT Blood Pressure 109 02/12/2019 12:58 PM CDT Pulse - - Temperature 20 02/12/2019 12:58 PM CDT Respiratory Rate 98% 02/12/2019 12:58 PM CDT Oxygen Saturation - - Inhaled Oxygen Concentration 77.1 kg (170 lb) 02/12/2019 12:58 PM CDT Weight 162.6 cm (5' 4") 02/12/2019 12:58 PM CDT Height 29.18 02/12/2019 12:58 PM CDT Body Mass Index documented in [...] impairment: No documented as of this encounter Progress Notes * Ger Cain MD - 02/12/2019 1:00 PM CDT SPINE CENTER CLINIC NOTE SUBJECTIVE: Ms. Huffman is a 62-year-old female with history ofC5-C7ACDF by Dr Imer Wilson,who presents for follow-up on neck and low back pain. At last visit, she is ready trigger point injections for the neck. This provided temporary re lief. Her greater concern today is pain in the low back with radiation into the legs. She has had prior transforaminal epidural steroid injection with tempora ry relief. VAS pain score is rated as an 8/10. Pain is located back in the leg s. Pain is worse with standing and walking. Pain is better with sitting down. She denies balance difficulties. She denies recent falls Review of Systems Constitutional: Negative. HENT: Positive for hearing loss, sneezing, tinnitus and trouble swallowing. Eyes: Positive for photophobia and itching. Respiratory: Negative. Cardiovascular: Negative. Gastrointestinal: Positive for constipation. Endocrine: Positive for heat intolerance and polydipsia. Genitourinary: Positive for enuresis and urgency. Musculoskeletal: Positive for arthralgias, back pain, gait problem, myalgias, ne ck pain and neck stiffness. Skin: Negative. Allergic/Immunologic: Positive for environmental allergies. Neurological: Positive for headaches. Hematological: Negative. Psychiatric/Behavioral: Negative. All other systems reviewed and are negative. Current Outpatient Medications: acetaminophen (TYLENOL ARTHRITIS PO), Take by mouth., Disp: , Rfl: baclofen (LIORESAL) 20 mg tablet, TAKE 1 TABLET BY MOUTH TWICE DAILY WITH F OOD OR MILK, Disp: , Rfl: 3 buPROPion XL (WELLBUTRIN XL) 150 mg tablet, Take 300 mg by mouth., Disp: , Rfl: cetirizine (ZYRTEC) 10 mg tablet, Take 10 mg by mouth daily., Disp: , Rfl: 3 cholecalciferol (VITAMIN D-3) 1,000 units tablet, Take 2,000 Units by mouth daily. Pt states taking 2000 units daily, Disp: , Rfl: cyanocobalamin (VITAMIN B-12, RUBRAMIN) 1,000 mcg/mL injection, Inject 1 mL to area(s) as directed every 30 days. Pt states she takes 5000 mcg SubQ daily., Disp: , Rfl: cyclobenzaprine (FLEXERIL) 10 mg tablet, TAKE ONE TABLET BY MOUTH TWICE ANGELICA LY, Disp: 60 Tab, Rfl: 6 diazePAM (VALIUM) 5 mg tablet, Take 1 tablet by mouth as Needed for Anxiety (Take 1 tablet by mouth 45 minutes before procedure for anxiety, if needed may take 2nd tablet just before procedure. 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 Insert one tablet vaginally daily for two weeks; then in sert one tablet twice weekly., Disp: , Rfl: fluticasone (FLOVENT HFA) 110 mcg/actuation inhaler, Inhale 2 puffs by mout h into the lungs twice daily., Disp: , Rfl: gabapentin (NEURONTIN) 300 mg capsule, Take one capsule by mouth twice ashley y., Disp: 180 capsule, Rfl: 1 hydrOXYzine (ATARAX) 10 mg tablet, Take 10 mg by mouth three times daily as needed for Itching., Disp: , Rfl: ibuprofen (MOTRIN) 600 mg tablet, Take 600 mg by mouth every 6 hours as nee ded for Pain., Disp: , Rfl: Lactobacillus rhamnosus GG (LACTOBACILLUS RHAMNOSUS (GG)) 15 billion cell c pSP, Take by mouth daily with breakfast., Disp: , Rfl: levomilnacipran (FETZIMA) 120 mg Cs24, Take 120 mg by mouth daily., Disp: , Rfl: lidocaine-prilocaine (EMLA) 2.5-2.5 % topical cream, apply small amount to affected area, Disp: 30 g, Rfl: 3 loratadine (CLARITIN) 10 mg tablet, , Disp: , Rfl: magnesium oxide 400 mg cap, Take 1 Cap by mouth daily. (Patient taking diff erently: Take 500 mg by mouth as directed. Takes one every morning. May also panda e as needed for headache.), Disp: 30 Cap, Rfl: 1 MELATONIN PO, Take 5 mg by mouth at bedtime daily., Disp: , Rfl: mirabegron(+) ER (MYRBETRIQ ER) 25 mg tablet, Take 25 mg by mouth daily., D isp: , Rfl: MULTIVITAMIN PO, Take by mouth., Disp: , Rfl: oxybutynin XL (DITROPAN XL) 10 mg tablet, Take 10 mg by mouth daily., Disp: , Rfl: [address] (PROTONIX) 20 mg tablet, , Disp: , Rfl: QNASL 80 mcg/actuation nasal spray, , Disp: , Rfl: Allergies Allergen Reactions Iodine HIVES topical Morphine HIVES Physical Exam Vitals: 02/12/19 1258 BP: 135/76 Pulse: 109 Resp: 20 SpO2: 98% Weight: 77.1 kg (170 lb) Height: 162.6 cm (64") Pain Score: Eight Body mass index is 29.18 kg/m. General: 63 y.o. female appears stated age, in no acute distress HEENT: Normocephalic, atraumatic Neck: No thyroidmegaly Cardiovascular: Well perfused Pulmonary: Unlabored respirations Extremities: No cyanosis, clubbing, or edema Skin: Warm and dry Psychiatric: Appropriate mood and affect Musculoskeletal: Tender palpation at right L4-L5 and L5-S1 facet joints, right g luteus medius, right greater trochanter. Decreased range of motion lumbar exten prema and flexion. Neurologic: Lower extremity myotomes are all 5/5. Lower extremity dermatomes ar e all intact to light touch. No ankle clonus. Diagnostics: MRI of lumbar spine from September 2017 was personally reviewed and demonstrated sev ere trefoil stenosis at L4-L5 secondary to epidural lipomatosis, bilateral facet arthropathy, and broad-based disc bulge. There is at least moderate trefoil st enosis at L3-L4 due to ligamentum flavum hypertrophy, facet hypertrophy, and deg enerative disc disease. IMPRESSION: 1. Lumbar radiculopathy 2. Lumbar stenosis with neurogenic claudication Ms. Huffman is a 63-year-old female who presents with persistent back pain with ra diation bilateral extremity. History and physical examination are consistent wi th lumbar radiculopathy and lumbar stenosis secondary to facet arthropathy and d egenerative disc disease. PLAN: 1. Lifestyle modification. Recommend activity as tolerated. 2. Medication. Continue with medications as previous prescribed. She currentl y takes ibuprofen 1800 mg- 2400 mg/day. 3. Therapy. Continue home exercise program. 4. Interventions. I recommend an L5-S1 interlaminar epidural steroid injection . 5. Referral. If she has only temporary relief with epidural, I think a surgica l referral would be reasonable. 6. Follow-up. Patient is to follow-up for procedure. documented in this encounter Plan of Treatment Not on filedocumented as of this encounter Results * [facility] SPINE INJECT INTERLAM LMBR/SAC (02/25/2019 12:30 PM CDT) Narrative Performed At Ger Cain MD 02/25/2019 2:10 PM OTHER O [facility] AMB SPINE INJECT INTERLAM LMBR/SAC [...] nt has decided to proceed with treatment/procedure. [place] Protocol: Relevant documents: relevant documents present and verified Test results: test results available an d properly labeled Imaging studies: imaging studies availa ble Required items: required blood products , implants, devices, and special equipment available Site marked: the operative site was laura nicholson Patient identity confirmed: Patient danilo ntify confirmed verbally with patient. Time out: Immediately prior to procedur e a "time out" was called to verify the correct patient, procedure, equipme nt, family support specialist and site/side marked as required [...] d hemostasis was accomplished. Performing Organization Address City/State/[place]cout Ph one Number OTHER OUTSIDE LAB documented in this encounter Visit Diagnoses Diagnosis Lumbar radiculopathy - Primary Thoracic or lumbosacral neuritis or rad iculitis, unspecified Lumbar stenosis with neurogenic claudic ation Spinal stenosis, lumbar region, with ne urogenic claudication Lumbar degenerative disc disease Degeneration of lumbar or lumbosacral i ntervertebral disc Lumbar facet arthropathy Lumbosacral spondylosis without myelopa thy documented in this encounter
--- OUTSIDE RECORDS SUMMARY | 2019-06-19 05:01 | XMS REPORT | Encounter Summary ---
Author Author [facility] Organization [facility] Address Unknown Phone Unavailable Care Team Providers Care Community Development Planner Name Role Phone Christina Black RN Unavailable [...] Unavailable Victoriano Loja MD Unavailable Encounter Details Care Team Description Date Type Department 05/23/2019 [facility] [address] [address] Social History Date Tobacco Use Types Packs/Day [...] impairment: No documented as of this encounter Medications at Time of Discharge Start Date End Date Medication Sig Dispensed Refills acetaminophen (TYLENOL Take by 0 ARTHRITIS PO) mouth. 01/31/2018 baclofen (LIORESAL) 20 mg TAKE 1 TABLET 3 tablet BY MOUTH TWICE DAILY WITH FOOD OR MILK 08/29/2018 buPROPion XL (WELLBUTRIN Take 300 mg 0 XL) 150 mg tablet by mouth. 01/03/2018 cetirizine (ZYRTEC) 10 mg Take 10 mg by 3 tablet mouth daily. cholecalciferol (VITAMIN Take 2,000 0 D-3) 1,000 units tablet Units by mouth daily. Pt states taking 2000 units daily cyanocobalamin (VITAMIN Inject 1 mL 0 B-12, RUBRAMIN) 1,000 to area(s) as mcg/mL injection directed every 30 days. Pt states she takes 5000 mcg SubQ daily. 03/22/2015 cyclobenzaprine TAKE ONE 60 Tab 6 (FLEXERIL) 10 mg tablet TABLET BY MOUTH TWICE DAILY 10/05/2017 diazePAM (VALIUM) 5 mg Take 1 tablet 2 tablet 0 tabletIndications: by mouth as anxiety Needed for Anxiety (Take 1 tablet by mouth 45 minutes before procedure for anxiety, if needed may take 2nd tablet just before procedure. 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 07/19/2016 diclofenac(+) (VOLTAREN) Apply 2 g 1 Tube 5 1 % topical gel topically to affected area four times daily. 06/29/2016 divalproex (DEPAKOTE ER) 0 500 mg ER tablet DIVALPROEX SODIUM Take 1,000 mg 0 (DEPAKOTE PO) by mouth at bedtime daily. ergocalciferol (vitamin Take by 0 D2) (VITAMIN D PO) mouth. estradiol (ESTRACE) 2 mg Take 2 mg by 0 tablet mouth every morning. estradiol(+) (VAGIFEM) 10 Insert or 0 mcg vaginal tablet Apply 10 mcg to vaginal area twice weekly. Insert one tablet vaginally daily for two weeks; then insert one tablet twice weekly. fluticasone (FLOVENT HFA) Inhale 2 0 110 mcg/actuation inhaler puffs by mouth into the lungs twice daily. 03/21/2019 gabapentin (NEURONTIN) Take one 180 capsule 1 300 mg capsule capsule by mouth twice daily. hydrOXYzine (ATARAX) 10 Take 10 mg by 0 mg tablet mouth three times daily as needed for Itching. ibuprofen (MOTRIN) 600 mg Take 600 mg 0 tablet by mouth every 6 hours as needed for Pain. Lactobacillus rhamnosus Take by 0 GG (LACTOBACILLUS mouth daily RHAMNOSUS (GG)) 15 with billion cell cpSP breakfast. levomilnacipran (FETZIMA) Take 120 mg 0 120 mg Cs24 by mouth daily. 07/19/2016 lidocaine-prilocaine apply small 30 g 3 (EMLA) 2.5-2.5 % topical amount to cream affected area 06/28/2016 loratadine (CLARITIN) 10 0 mg tablet 10/22/2014 magnesium oxide 400 mg Take 1 Cap by 30 Cap 1 cap mouth daily. MELATONIN PO Take 5 mg by 0 mouth at bedtime daily. mirabegron(+) ER Take 25 mg by 0 (MYRBETRIQ ER) 25 mg mouth daily. tablet MULTIVITAMIN PO Take by 0 mouth. 01/29/2018 oxybutynin XL (DITROPAN Take 10 mg by 99 XL) 10 mg tablet mouth daily. 07/03/[address] 0 (PROTONIX) 20 mg tablet 07/04/2016 QNASL 80 mcg/actuation 0 nasal spray documented as of this encounter Plan of Treatment Not on filedocumented as of this encounter Procedures Comments Procedure Name Priority Date/Time Associated Diag nosis CT L-SPINE EXTERNAL Routine 05/23/2019 IMAGING 12:00 AM SOLAR TECHNICIAN documented in this encounter Results * CT L-SPINE EXTERNAL IMAGING (05/23/2019 12:00 AM SOLAR TECHNICIAN) Specimen Narrative Performed At This order has been auto finalized and does not contain a result. documented in this encounter Visit Diagnoses Not on filedocumented in this encounter
--- OUTSIDE RECORDS SUMMARY | 2019-06-19 05:01 | XMS REPORT | Encounter Summary ---
Author Author [facility] Organization [facility] Address Unknown Phone Unavailable Care Team Providers Care Screwmaker Automatic Name Role Phone Christina Black RN Unavailable [...] Description Date [place] [address] [facility] [address] [place], [place] [id number] 02/25/2019 [facility] [address] [address] Social History Date Tobacco Use [...] 2nd tablet just before procedure. 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 [...] the lungs twice daily. hydrOXYzine (ATARAX) 10 Take 10 [...] 07/04/2016 QNASL 80 mcg/actuation 0 nasal spray 09/25/2018 03/19/2019 gabapentin (NEURONTIN) Take one 180 capsule 1 300 mg capsule capsule by mouth twice daily. documented as of this encounter Plan of Treatment Not on filedocumented as of this encounter Procedures Comments Procedure Name Priority Date/Time Associated Diag nosis FLUORO GUIDANCE FOR SPINE Routine 02/25/2019 Low back pain with INJ RAD 1:20 PM CDT sciatica, sciatica laterality unspecified, unspecified back pain laterality, unspecified chronicity documented in this encounter Results * FLUORO GUIDANCE FOR SPINE INJ RAD (02/25/2019 1:20 PM CDT) Specimen Narrative Performed At This order has been auto finalized and does not conta in a result. KRUNAL [facility] Performing Organization Address [facility] Number KRUNAL [facility] documented in this encounter Visit Diagnoses Diagnosis Low back pain with sciatica, sciatica l aterality unspecified, unspecified back pain laterality, unspecified chronicity documented in this encounter
--- OUTSIDE RECORDS SUMMARY | 2019-06-19 05:01 | XMS REPORT | Encounter Summary ---
Author Author [facility] Organization [facility] Address Unknown Phone Unavailable Care Team Providers Care Children'S Attendant Name Role Phone Christina Black RN Unavailable [...] Unavailable Reason for Visit * Reason Comments Care Coordination Encounter Details Care Team Description Date [place] [address] [place] [address] Care Coordination 05/26/2019 Telephone [facility] [address] [place] [address] Social History Date Tobacco Use [...] Telephone Encounter - Nikki Monsalve RN - 05/26/2019 2:25 PM INVESTIGATION DIVISION CAPTAIN Received vm from Sydnie, she said she is in hospital in [place] went to go to bed Sun afternoon felt bad pop in lb, fractured L4 when she fell, did CT Scan, going to have them cloud to Dr. Cain if you need anymore info [phone]. RN returned call, asked Sydnie to let us know when she is discharged and we can reschedule office visit with Dr. Cain - ari v/u and agrees to this plan. STIGATION DIVISION CAPTAIN documented in this encounter Plan of Treatment Not on filedocumented as of this encounter Visit Diagnoses Not on filedocumented in this encounter
--- OUTSIDE RECORDS SUMMARY | 2019-06-19 05:01 | XMS REPORT | Encounter Summary ---
Author Author [facility] Organization [facility] Address Unknown Phone Unavailable Care Team Providers Care Construction Coordinator Name Role Phone Christina Black RN Unavailable Unavailable Tai Levi RN Unavailable Unavailable Ismael Mena MD [...] Description [place] [address] [place] [address] Care Coordination 05/22/2019 Telephone [facility] [address] [place] [address] Social History Date Tobacco Use [...] Telephone Encounter - Nikki Monsalve RN - 05/22/2019 9:36 AM COMMERCIAL RETOUCHER Received vm from Sydnie Huffman, she said she had a bad fall right side 1 week ag o on hardwood floors dislocated shoulder & couple of fragments in there too, saw an orthopod down there Dr. Oreilly in [place] put her in binder holds arm to her side & wrist can be velcroed up above, calling about LB I kim everything, can hardly get up out of bed or my chair without crying or screaming, sami if it's spasms going across LB down into right buttock over to stomach/hip area, could have pulled a muscle trying to get up & down, what are Dr Cain's ideas, gonna have to do something quick, no one stays with me at night to help me up & down, i do have helper in the mornings, does he wants an MRI or CT scan to see if she messed up stenosis up there, 3 months ago when he gave epidural it was bad enough to say if epidural didn't work he was sending her to surgeon RN returned the call, s/w Sydnie, she said the ER at [facility] did CTs from the nec k down & put her to sleep to put her shoulder back into place but she said didn't address the lower back in the ER. Patient is asking if Dr. Cain thinks she needs MRI. RN to discuss with provider and c/b to patient, she v/u and agrees to this plan. RN returned call, let Sydnie know Dr. Cain wants to see her in clinic for eval uation, patient agreed. RN assisted with scheduling. ERCIAL RETOUCHER documented in this encounter Plan of Treatment Not on filedocumented as of this encounter Visit Diagnoses Not on filedocumented in this encounter
--- OUTSIDE RECORDS SUMMARY | 2019-06-19 05:02 | XMS REPORT ---
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 Name Role Phone NAHOMY HANCOCK Unavailable PROBLEMS Type Condition ICD9-CM Code JDT32-JC Code Onset Dates Condition S tatus SNOMED Code Problem Abnormal CT scan, head R93.0 Active 508910255 Problem Bruising, spontaneous R23.3 Active 852920119 Problem Sensorineural hearing loss (SNHL) of both ears H90 .3 Active 227971361 Problem Arthralgia of hip, unspecified laterality M25.559 Active 15659247 Problem Night sweats R61 Active 4552211 0 Problem Grief F43.20 Active 82504174 Problem Hypertension I10 Active 6402561 3 Problem Major depressive disorder, recurrent episode, moderate F33.1 Active 997043288 Problem Imbalance R26.89 Active 810770511 Problem Age-related osteoporosis without current pathological fracture M81.0 Active 42089361 Problem Hormone replacement therapy Z79.890 Ac tive 087057361 Problem Ataxia R27.0 Active 11042051 Problem Bipolar 1 disorder, mixed F31.60 Acti ve 90217821 Problem Allergic rhinitis J30.9 Active 61 482956 Problem Hearing loss, unspecified laterality H91.90 Active 08934215 Problem Generalized anxiety disorder F41.1 A ctive 20802384 Problem History of colon polyps Z86.010 Active 411185516 Problem Hammer toe of right foot M20.41 Activ e 448718862 Problem Hematuria, unspecified type R31.9 Ac tive 68724135 Problem Fibromyalgia M79.7 Active 5543538 7 Problem Bladder spasm N32.89 Active 279563 006 Problem Acute left-sided low back pain with left-sided sciatica M54.42 Active 723020684 Problem Post menopausal syndrome N95.1 Activ e 059578187 Problem Hyperlipidemia, unspecified hyperlipidemia type E7 8.5 Active 16372389 Problem Sciatica of right side M54.31 Active 27292148 Problem Other chronic pain G89.29 Active 8 8290078 Problem Gastritis without bleeding, unspecified chronicity, unspecified gastritis type K29.70 Active 374870059 Problem Sciatica of left side M54.32 Active 49389359 Problem Plantar wart of right foot B07.0 Act mitchell [id number] Problem Slow transit constipation K59.01 Acti ve 35411430 Problem Tobacco use disorder F17.200 Active 457266661 ALLERGIES No Information ENCOUNTERS Encounter Location Date Diagnosis [place] [address] [address] Apr, [place] [address] [address] Mar, [place] [address] [address] Mar, [place] [address] [address] Feb, Excessive gas R14.3 ; Other chronic pain G89.29 ; Encounter for immunization Z23 ; Hyperlipidemia, unspecified hyperlipidemia type E78.5 ; Bipolar 1 disorder, mixed F31.60 and Other group home (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 Z79.899 [place] [address] [address] Feb, Bipolar 1 disorder, 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 [place] [address] [address] Jan, Sciatica of right side M54.3 1 ; Low back pain M54.5 and Major depressive disorder, recurrent episode, moderate F33.1 [place] [address] [address] Jan, Bipolar 1 disorder, 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 [place] [address] [place] [id number] [place] [address] Dec, Normal pelvic exam Z01.419 [place] [address] [place] [address] [place] [address] Dec, Bipolar 1 disorder, 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 [facility] [address] [id number] [address] [place] [address] Nov, Bipolar 1 disorder, 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 [facility] [address] [facility] [id number] [address] [place] [address] Nov, Bipolar 1 disorder, 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 ; Generalized anxiety disorder F41.1 ; Tobacco use disorder F17.200 and 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 [facility] [address] [id number] [address] [place] [address] Nov, [facility] [address] [facility] [id number] [address] [place] [address] Nov, Bipolar 1 disorder, 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 [facility] [address] [facility] [id number] [address] [place] [address] October, Bipolar 1 disorder, 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 [facility] [address] [facility] [id number] [address] [place] [address] October, Bipolar 1 disorder, 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 [facility] [address] [facility] [id number] [address] [place] [address] October, [facility] [address] [facility] [id number] [address] [place] [phone] October, Bipolar 1 disorder, 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 ; Generalized anxiety disorder F41.1 and Tobacco use disorder F17.200 [facility] [address] [facility] [id number] [address] [place] [address] Sep, [facility] [address] [facility] [id number] [address] [place] [address] Sep, Encounter for Medicare annua wellness exam Z00.00 ; Major depressive disorder, recurrent episode, moderate F33.1 ; Allergic rhinitis J30.9 ; Bipolar 1 disorder, mixed F31.60 ; Fibromyalgia M79.7 ; Hyperlipidemia, unspecified hyperlipidemia type E78.5 ; Hormone replacement therapy Z79.890 ; Encounter for screening for lung cancer Z12.2 and Tobacco use disorder F17.200 [place] [address] [facility] [id number] [address] [place] [address] 23 Sep, 2018 Bipolar 1 disorder, 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 [place] [address] [facility] [id number] [address] [place] [address] Sep, Other chronic pain G89.29 ; Hyperlipidemia, unspecified hyperlipidemia type E78.5 ; Breast cancer screening Z12.31 and Post menopausal syndrome N95.1 [place] [address] [facility] [id number] [address] [place] [id number] 16 Sep, 2018 Bipolar 1 disorder, 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 [place] [address] [place] [id number] [address] [place] [phone] Sep, Bipolar 1 disorder, 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 ; Generalized anxiety disorder F41.1 and Tobacco use disorder F17.200 [place] [address] [place] [id number] [address] [place] [address] Sep, Gastritis without bleeding, unspecified chronicity, unspecified gastritis type K29.70 [place] [address] [facility] [id number] [address] [place] [address] 08 Sep, 2018 Exercise counseling Z71.82 [place] [address] [place] [id number] [address] [place] [address] Aug, Exercise counseling Z71.82 [place] [address] [place] [id number] [address] [place] [address] Aug, Bipolar 1 disorder, 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 [place] [address] [place] [id number] [address] [place] [address] Aug, Exercise counseling Z71.82 [place] [address] [facility] [id number] [address] [place] [address] Aug, Bipolar 1 disorder, 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 [place] [address] [address] 18 Aug, 2018 Gastritis without bleeding, unspecified chronicity, unspecified gastritis type K29.70 ; Tobacco abuse Z72.0 ; Generalized anxiety disorder F41.1 and Weight gain R63.5 [facility] [address] [address] Aug, Bipolar 1 disorder, 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 ; Generalized anxiety disorder F41.1 and Tobacco use disorder F17.200 [place] [address] [address] Jul, Bipolar 1 disorder, 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 [place] [address] [address] Jul, [place] [address] [address] Jul, Bipolar 1 disorder, 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 [place] [address] [address] Jul, Allergic rhinitis J30.9 ; Ma darion depressive disorder, recurrent episode, moderate F33.1 and Tobacco 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 [place] [address] [address] Jun, [place] [address] [address] Jun, [place] [address] [address] Jun, Bipolar 1 disorder, 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 [place] [address] [address] Jun, Bipolar 1 disorder, 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 [place] [address] [address] Jun, Bipolar 1 disorder, 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 [place] [address] [address] Jun, Generalized anxiety disorder F41.1 ; Tobacco abuse Z72.0 and Major depressive disorder, recurrent episode, moderate F33.1 [place] [address] [place] [id number] [address] [place] [address] May, Bipolar 1 disorder, 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 [place] [address] [place] [id number] [place] [address] May, Bipolar 1 disorder, 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 and Generalized anxiety disorder F41.1 [place] [address] [place] [id number] [place] [address] May, Bipolar 1 disorder, 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 [place] [address] [place] [id number] [place] [address] May, Allergic rhinitis J30.9 [place] [address] [address] May, Bipolar 1 disorder, 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 [place] [address] [place] [id number] [address] [place] [address] May, [place] [address] [address] Apr, Allergic rhinitis J30.9 ; Dy sfunction of both eustachian tubes H69.83 ; History of bladder surgery Z98.890 and Cervicalgia M54.2 [place] [address] [place] [id number] [address] [place] [phone] Mar, Bipolar 1 disorder, 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 [place] [address] [place] [id number] [place] [address] Mar, [place] [address] [address] Mar, Slow transit constipation K5 9.01 ; Encounter for immunization Z23 and Generalized anxiety disorder F41.1 [place] [address] [place] [id number] [address] [place] [id number] 27 Feb, 2018 Bipolar 1 disorder, 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 [facility] [address] [id number] [address] [place] [id number] 26 Feb, 2018 Allergic rhinitis J30.9 [facility] [address] [id number] [address] [place] [phone] 24 Feb, 2018 Bipolar 1 disorder, 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 [facility] [address] [id number] [address] [place] [phone] 20 Feb, 2018 Bipolar 1 disorder, 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 and Generalized anxiety disorder F41.1 [facility] [address] [id number] [address] [place] [id number] 13 Feb, 2018 Bipolar 1 disorder, 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 [facility] [address] [id number] [address] [place] [phone] 11 Feb, 2018 Allergic rhinitis J30.9 [facility] [address] [id number] [address] [place] [id number] 05 Feb, 2018 [facility] [address] [id number] [address] [place] [address] Jan, Bipolar 1 disorder, 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 [facility] [address] [facility] [id number] [address] [place] [phone] Jan, Low back pain M54.5 ; Hyperl ipidemia, unspecified hyperlipidemia type E78.5 and Bipolar 1 disorder, mixed F31.60 [facility] [address] [id number] [address] [place] [address] Jan, Bipolar 1 disorder, 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 [facility] [address] [id number] [address] [place] [phone] Jan, Bipolar 1 disorder, 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 [facility] [address] [facility] [id number] [address] [place] [id number] Jan, Bipolar 1 disorder, 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 [facility] [address] [facility] [id number] [address] [place], [place] [id number] Jan, Bipolar 1 disorder, 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 [facility] [address] [facility] [id number] [address] [place] [address] Dec, Bipolar 1 disorder, 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 ; Generalized anxiety disorder F41.1 and Other group home (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 Z79.899 [facility] [address] [facility] [id number] [address] [place] [address] Dec, 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 [facility] [address] [facility] [id number] [address] [place] [address] Dec, Bipolar 1 disorder, 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 [facility] [address] [facility] [id number] [address] [place], [place] [address] Dec, Bipolar 1 disorder, 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 [facility] [address] [facility] [id number] [address] [place] [address] Nov, Bipolar 1 disorder, 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 [facility] [address] [facility] [id number] [address] [place] [phone] Nov, Bipolar 1 disorder, 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 [facility] [address] [facility] [id number] [address] [place] [address] Nov, Bipolar 1 disorder, 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 [facility] [address] [facility] [id number] [address] [place] [phone] Nov, Allergic rhinitis J30.9 [facility] [address] [facility] [id number] [address] [place] [address] Nov, Allergic rhinitis J30.9 [facility] [address] [facility] [id number] [address] [place] [phone] Nov, [facility] [address] [facility] [id number] [address] [place] [address] Nov, Bipolar 1 disorder, 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 [facility] [address] [address] Nov, Fibromyalgia M79.7 and Aller gic rhinitis J30.9 [facility] [address] [address] October, Bipolar 1 disorder, 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 [facility] [address] [address] October, Acute nasopharyngitis J00 [facility] [address] [address] October, Bitten or stung by nonvenomo us insect and other nonvenomous arthropods, initial encounter W57.XXXA and Insect bite (nonvenomous) of abdominal wall, initial encounter S30.861A [place] [address] [address] October, Insect bite (nonvenomous) of abdominal wall, initial encounter S30.861A ; Bitten or stung by nonvenomous insect and other nonvenomous arthropods, initial encounter W57.XXXA ; Allergic rhinitis J30.9 and Low back pain M54.5 [place] [address] [address] October, Bipolar 1 disorder, 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 [place] [address] [address] October, [facility] [address] [address] October, [facility] [address] [address] October, Bipolar 1 disorder, 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 [facility] [address] [address] Sep, Bipolar 1 disorder, 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 [place] [address] [address] Sep, Other chronic pain G89.29 [facility] [address] [facility] [id number] [address] [place] [address] Sep, [facility] [address] [facility] [id number] [address] [place], [place] [address] Sep, Bipolar 1 disorder, 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 [facility] [address] [place] [id number] [address] [place] [address] Sep, Allergic rhinitis J30.9 and Sciatica of left side M54.32 [facility] [address] [facility] [id number] [address] [place] [address] Sep, Bipolar 1 disorder, 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 [facility] [address] [place] [id number] [address] [place] [address] Sep, Bipolar 1 disorder, 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 and Generalized anxiety disorder F41.1 [facility] [address] [facility] [id number] [address] [place] [address] Aug, [facility] [address] [facility] [id number] [address] [place] [address] Aug, Bipolar 1 disorder, 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 [facility] [address] [place] [id number] [address] [place] [phone] Aug, Bipolar 1 disorder, 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 [facility] [address] [place] [id number] [address] [place] [address] Aug, [facility] [address] [facility] [id number] [address] [place] [address] Aug, Generalized anxiety disorder F41.1 [facility] [address] [place] [id number] [address] [place] [phone] Aug, Bipolar 1 disorder, 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 [facility] [address] [place] [id number] [address] [place] [address] Aug, Plantar wart of right foot B 07.0 [facility] [address] [facility] [id number] [address] [place] [address] Aug, Bipolar 1 disorder, 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 [facility] [address] [place] [id number] [address] [place] [address] Jul, Bipolar 1 disorder, 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 [facility] [address] [place] [id number] [address] [place] [address] Jul, [facility] [address] [place] [id number] [address] [place] [address] 14 Jul, 2017 Bipolar 1 disorder, 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 [facility] [address] [place] [id number] [place] [address] 09 Jul, 2017 Generalized anxiety disorder F41.1 [facility] [address] [place] [id number] [address] [place] [address] 07 Jul, 2017 Bipolar 1 disorder, 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 [facility] [address] [place] [id number] [address] [place] [address] 07 Jul, 2017 Acute left-sided low back pa in with left-sided sciatica M54.42 [facility] [address] [place] [id number] [address] [place] [id number] 05 Jul, 2017 Coccydynia M53.3 [facility] [address] [place] [id number] [address] [place] [address] Jun, Bipolar 1 disorder, 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 [facility] [address] [facility] [id number] [address] [place] [address] Jun, Acute nasopharyngitis J00 [facility] [address] [place] [id number] [address] [place] [address] Jun, Bipolar 1 disorder, 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 [facility] [address] [place] [id number] [address] [place] [address] Jun, Fibromyalgia M79.7 [facility] [address] [place] [address] [address] Jun, Bipolar 1 disorder, 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 [place] [address] [address] Jun, Fibromyalgia M79.7 and Bipol ar 1 disorder, mixed F31.60 [place] [address] [address] May, Bipolar 1 disorder, 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 ; Generalized anxiety disorder F41.1 and Other group home (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 Z79.899 [place] [address] [address] May, Bipolar 1 disorder, 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 [facility] [address] [address] May, Cough R05 and Body aches R52 [facility] [address] [address] May, Bladder spasm N32.89 and Acu te cystitis without hematuria N30.00 [place] [address] [address] May, Bipolar 1 disorder, 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 [place] [address] [address] Apr, [place] [address] [address] Apr, Major depressive disorder, r ecurrent episode, moderate F33.1 and Encounter for immunization Z23 [place] [address] [address] Apr, Bipolar 1 disorder, 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 [place] [address] [address] Apr, Bipolar 1 disorder, 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 [place] [address] [address] Apr, Bipolar 1 disorder, 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 [facility] [address] [place] [id number] [address] [place] [address] Apr, Yeast vaginitis B37.3 [facility] [address] [place] [id number] [address] [place] [address] Apr, Bipolar 1 disorder, 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 [facility] [address] [place] [id number] [address] [place] [address] Apr, Cellulitis L03.[address] for immunization Z23 [facility] [address] Apr, Bipolar 1 disorder, 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 [facility] [address] [place] [id number] [place] [address] Mar, Bipolar 1 disorder, 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 [place] [address] [address] Mar, Bipolar 1 disorder, 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 [facility] [address] [address] Mar, Imbalance R26.89 and Encount er for immunization Z23 [facility] [address] [place] [id number] [address] [place] [address] Mar, Generalized anxiety disorder F41.1 [facility] [address] [place] [id number] [address] [place] [address] Mar, Bipolar 1 disorder, 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 [facility] [address] [place] [id number] [address] [place] [id number] Mar, Generalized anxiety disorder F41.1 [facility] [address] [place] [id number] [address] [place] [address] Mar, Bipolar 1 disorder, 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 [facility] [address] [place] [id number] [address] [place] [address] Mar, Bipolar 1 disorder, 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 [place] [address] [place] [id number] [address] [place] [address] Feb, Bipolar 1 disorder, 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 [place] [address] [place] [id number] [address] [place] [address] Feb, Bipolar 1 disorder, 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 and Generalized anxiety disorder F41.1 [place] [address] [address] Feb, Gastritis without bleeding, unspecified chronicity, unspecified gastritis type K29.70 ; Hammer toe of right foot M20.41 and Other viral warts B07.8 [place] [address] [place] [id number] [place] [address] Feb, Bipolar 1 disorder, 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 [place] [address] [address] Feb, Bipolar 1 disorder, 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 [place] [address] [place] [id number] [address] [place] [address] Feb, Bipolar 1 disorder, 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 [place] [address] [address] Jan, Encounter for screening mamm ogram for breast cancer Z12.31 ; Other viral warts B07.8 and Allergic rhinitis J30.9 [place] [address] [place] [id number] [address] [place] [address] Jan, Bipolar 1 disorder, 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 [place] [address] [place] [id number] [address] [place] [address] Jan, Bipolar 1 disorder, 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 [place] [address] [place] [id number] [address] [place] [address] Jan, [place] [address] [place] [id number] [address] [place] [address] Jan, Bipolar 1 disorder, 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 [place] [address] [place] [id number] [address] [place] [address] Jan, Bipolar 1 disorder, 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 [place] [address] [place] [id number] [address] [place] [phone] Jan, Allergic rhinitis J30.9 ; He maturia R31.9 and Colon cancer screening Z12.11 [place] [address] [phone] Dec, Bipolar 1 disorder, 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 [place] [address] [phone] Dec, Bipolar 1 disorder, 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 ; Generalized anxiety disorder F41.1 and 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 [place] [address] [phone] Dec, Bipolar 1 disorder, 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 [place] [address] [phone] Dec, Bipolar 1 disorder, 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 [place] [address] [phone] Dec, Bipolar 1 disorder, 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 [place] [address] [id number] Dec, Low back pain M54.5 and Recu rrent urinary tract infection N39.0 [place] [address] [place] [id number] [place] [phone] Nov, Bipolar 1 disorder, 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 [place] [address] [place] [id number] [place] [phone] Nov, Bipolar 1 disorder, 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 [place] [address] [id number] Nov, Bipolar 1 disorder, 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 [facility] [address] [facility] [id number] [address] [place] [id number] Nov, Bipolar 1 disorder, 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 [facility] [address] [place] [id number] [place] [phone] Nov, [place] [address] [place] [id number] [place] [phone] Nov, Anesthesia of skin R20.0 ; F requent UTI N39.0 ; Tobacco abuse Z72.0 and Colon cancer screening Z12.11 [place] [address] [address] [place] [id number] [address] [place] [address] Nov, Bipolar 1 disorder, 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 [place] [address] [place] [id number] [place] [address] October, Bipolar 1 disorder, 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 [place] [address] [address] October, Bipolar 1 disorder, 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 [place] [address] [address] October, Bipolar 1 disorder, 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 [place] [address] [place] [id number] [place] [address] October, Bipolar 1 disorder, 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 [place] [address] [place] [id number] [address] [place] [address] October, Bipolar 1 disorder, 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 [place] [address] [place] [id number] [address] [place] [address] October, Cervicalgia M54.2 and Bipola r 1 disorder, mixed F31.60 [place] [address] [place] [id number] [address] [place] [address] October, Hypertension I10 ; Hyperlipi demia, unspecified hyperlipidemia type E78.5 and Family history of thyroid disease Z83.49 [place] [address] [address] October, [place] [address] [place] [id number] October, Hypertension I10 ; Hyperlipi demia, unspecified hyperlipidemia type E78.5 and Family history of thyroid problem Z83.49 [place] [address] [address] October, Bipolar 1 disorder, 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 [place] [address] [address] Sep, Bipolar 1 disorder, 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 [place] [address] [address] Sep, Bipolar 1 disorder, 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 [place] [address] [address] Sep, Bipolar 1 disorder, 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 [place] [address] [address] Sep, History of colon polyps Z86. 010 and Hematochezia K92.1 [place] [address] [address] Sep, Major depressive disorder, r ecurrent episode, moderate F33.1 [place] [address] [place] [id number] [address] [place] [address] Sep, Bipolar 1 disorder, 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 [place] [address] [address] Aug, Hot flashes due to menopause N95.1 [place] [address] [place] [id number] [address] [place] [address] Aug, Bipolar 1 disorder, 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 [place] [address] [address] Aug, [facility] [address] [address] Aug, Bipolar 1 disorder, 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 [place] [address] [place] [id number] Aug, Bipolar 1 disorder, 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 [place] [address] [place] [id number] Aug, Hot flashes due to menopause N95.1 ; Cervicalgia M54.2 and Ataxia R27.0 [place] [address] [place] [address] Jul, Bipolar 1 disorder, 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 [place] [address] [address] Jul, Bipolar 1 disorder, 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 [place] [address] [address] Jul, Bipolar 1 disorder, 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 [place] [address] [address] Jul, Bipolar 1 disorder, 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 [place] [address] [address] Jul, Bipolar 1 disorder, 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 [place] [address] [address] Jul, Cervicalgia M54.2 ; Tremor R 25.1 ; Hearing abnormally acute, unspecified laterality H93.239 ; Alopecia L65.9 ; Encounter for immunization Z23 and Family history of thyroid disease Z83.49 [place] [address] [address] Jul, Bipolar 1 disorder, 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 [place] [address] [place] [id number] Jun, [facility] [address] [facility] [id number] [address] [place] [address] Jun, Hearing disorder, unspecifie d laterality H93.299 [facility] [address] [id number] [address] [place] [address] Jun, Bipolar 1 disorder, 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 [facility] [address] [facility] [id number] [address] [place], [place] [address] Jun, Bipolar 1 disorder, 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 [facility] [address] [facility] [id number] [address] [place] [address] Jun, Allergic rhinitis J30.9 [facility] [address] [facility] [id number] [address] [place] [address] Jun, Bipolar 1 disorder, 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 [facility] [address] [facility] [id number] [address] [place] [address] Jun, Bipolar 1 disorder, 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 [facility] [address] [facility] [id number] [address] [place] [address] Jun, Allergic rhinitis J30.9 [facility] [address] [facility] [id number] [address] [place] [address] Jun, Allergic rhinitis J30.9 [facility] [address] [facility] [id number] [address] [place] [address] Jun, Bipolar 1 disorder, 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 [facility] [address] [facility] [id number] [address] [place] [address] May, Bipolar 1 disorder, 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 [facility] [address] [facility] [id number] [address] [place] [address] May, Bipolar 1 disorder, 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 [facility] [address] [facility] [id number] [address] [place] [address] May, [facility] [address] [place] [id number] [place] [address] May, Bipolar 1 disorder, 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 [facility] [address] [address] May, Bipolar 1 disorder, 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 [facility] [address] [place] [id number] [place] [address] May, [facility] [address] [address] May, [facility] [address] [address] May, [facility] [address] [address] May, Abdominal pain, unspecified location R10.9 [facility] [address] [address] May, [facility] [address] [address] Apr, Hematuria R31.9 ; Ataxia R27 .0 and Hearing loss, unspecified laterality H91.90 [facility] [address] [address] Apr, Bipolar 1 disorder, 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 [facility] [address] [place] [id number] [place] [address] Apr, Acute effusion of both middl e ears H65.193 [facility] [address] [place] [id number] [address] [place] [address] Apr, Hematuria R31.9 and Pyelonep hritis N12 [facility] [address] [place] [id number] [place] [address] Apr, [facility] [address] [address] Mar, Bipolar 1 disorder, 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 [place] [address] [place] [id number] [place] [address] Mar, [place] [address] [place] [id number] Mar, Bipolar 1 disorder, 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 [place] [address] [place] [id number] [address] [place] [address] Mar, Bipolar 1 disorder, 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 [place] [address] [address] Mar, Encounter for immunization Z 23 and Gastritis without bleeding, unspecified chronicity, unspecified gastritis type K29.70 [place] [address] [place] [id number] [place] [address] Mar, Bipolar 1 disorder, 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 and Grief F43.20 [place] [address] [place] [id number] [address] [place] [address] Mar, Gastritis without bleeding, unspecified chronicity, unspecified gastritis type K29.70 [place] [address] [place] [id number] [place] [address] Mar, Bipolar 1 disorder, 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 [place] [address] [place] [id number] [place] [address] Mar, Gastritis without bleeding, unspecified chronicity, unspecified gastritis type K29.70 [place] [address] [place] [id number] [place] [address] Mar, [place] [address] [place] [id number] [place] [address] Feb, Bipolar 1 disorder, 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 [place] [address] [place] [id number] [place] [address] Feb, Bipolar 1 disorder, 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 and Grief F43.20 [place] [address] [place] [id number] [address] [place] [address] Feb, Gastritis without bleeding, unspecified chronicity, unspecified gastritis type K29.70 [facility] [address] [facility] [id number] [address] [place] [address] 14 Feb, 2016 Bipolar 1 disorder, 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 [facility] [address] [facility] [id number] [address] [place] [id number] 09 Feb, 2016 Gastroesophageal reflux dise ase, esophagitis presence not specified K21.9 [facility] [address] [place] [id number] [place] [address] Jan, Bipolar 1 disorder, 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 [facility] [address] [place] [id number] [place], [place] [id number] Jan, Bipolar 1 disorder, 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 and Unsteady gait R26.81 [place] [address] [place] [id number] [place] [address] Jan, Bipolar 1 disorder, 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 [facility] [address] [place] [id number] [place] [address] Jan, Bipolar 1 disorder, 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 and Other group home (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 Z79.899 [place] [address] [place] [id number] [place] [id number] Jan, Bipolar 1 disorder, 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 [facility] [address] [place] [id number] [place] [id number] Jan, Bipolar 1 disorder, 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 [place] [address] [place] [id number] [place] [address] Jan, Bipolar 1 disorder, 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 ; Grief F43.20 and Other group home (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 Z79.899 [place] [address] [facility] [id number] [address] [place] [address] Jan, Bipolar 1 disorder, 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 [facility] [address] [place] [id number] [place], [place] [id number] Dec, [facility] [address] [place] [address] Dec, Bipolar 1 disorder, 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 ; Vitamin D deficiency, unspecified E55.9 ; H/O allergic rhinitis Z87.09 ; Other chronic pain G89.29 and Dorsalgia, unspecified M54.9 [facility] [address] [place] [id number] [place] [address] Dec, [facility] [address] [place] [id number] [place] [address] Dec, Bipolar 1 disorder, 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 [place] [address] [address] Dec, Major depressive disorder, r ecurrent episode, moderate F33.1 [place] [address] [address] Dec, Major depressive disorder, r ecurrent episode, moderate F33.1 [facility] [address] [place] [id number] [place] [address] Nov, [place] [address] [address] Nov, Bipolar 1 disorder, 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 [place] [address] [place] [id number] [address] [place] [address] Nov, Major depressive disorder, r ecurrent episode, moderate F33.1 [place] [address] [place] [id number] [place] [address] Nov, Cervicalgia M54.2 ; Arthralg ia of hip, unspecified laterality M25.559 ; Allergic rhinitis J30.9 and Hormone replacement therapy Z79.890 [facility] [address] [place] [id number] [place] [address] Nov, Other seasonal allergic rhin itis J30.2 [facility] [address] [place] [id number] [place] [address] October, Major depressive disorder, r ecurrent episode, moderate F33.1 [place] [address] [facility] [id number] [address] [place] [address] October, Major depressive disorder, r ecurrent episode, moderate F33.1 and Arthralgia of hip, unspecified laterality M25.559 [place] [address] [place] [address] October, Grief F43.20 ; Hypertension I10 ; Hyperlipidemia, unspecified hyperlipidemia type E78.5 ; Other chronic pain G89.29 and Allergic rhinitis, unspecified allergic rhinitis type J30.9 [place] [address] [place] [id number] [place] [address] October, Major depressive disorder, r ecurrent episode, moderate F33.1 [place] [address] [place] [id number] [place] [address] Sep, Major depressive disorder, r ecurrent episode, moderate F33.1 [place] [address] [facility] [id number] [address] [place] [address] Sep, [place] [address] [place] [id number] [place] [address] Sep, Major depressive disorder, r ecurrent episode, moderate F33.1 [place] [address] [place] [id number] [place] [address] Sep, Grief F43.20 [place] [address] [place] [id number] [place] [phone] Aug, Major depressive disorder, r ecurrent episode, moderate F33.1 [place] [address] [place] [id number] [place] [address] Aug, Bipolar 1 disorder, 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 [place] [address] [place] [id number] [address] [place] [address] Aug, Allergic rhinitis J30.9 ; Ce rvicalgia M54.2 and Low back pain M54.5 [facility] [address] [facility] [id number] [address] [place] [id number] Aug, Major depressive disorder, r ecurrent episode, moderate F33.1 [facility] [address] [facility] [id number] [address] [place] [address] Aug, Sinusitis J32.9 and Tobacco 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 [facility] [address] [place] [address] Aug, [facility] [address] [address] Aug, Depressive disorder, not els ewhere classified F32.9 ; Hormone replacement therapy Z79.[address] scan, head R93.0 [place] [address] [address] Aug, Major depressive disorder, r ecurrent episode, moderate F33.1 [facility] [address] [place] [address] Jul, Major depressive disorder, r ecurrent episode, moderate F33.1 [facility] [address] [place] [id number] [address] [place] [address] Jul, Abdominal pain R10.9 and Hyp ertension I10 [facility] [address] [place] [id number] [place] [address] Jul, [facility] [address] [place] [id number] [place] [address] Jul, Major depressive disorder, r ecurrent episode, moderate F33.1 [facility] [address] [place] [id number] [place] [address] Jul, [facility] [address] [place] [id number] [place] [id number] Jul, [facility] [address] [id number] [address] [place] [id number] Jun, [facility] [address] [id number] [address] [place] [address] Jun, Depressive disorder, not els ewhere classified F32.9 [facility] [address] [id number] [address] [place] [id number] Jun, [facility] [address] [id number] [address] [place] [id number] Jun, [facility] [address] [id number] [address] [place] [id number] Jun, Arthralgia of hip, unspecifi ed laterality M25.559 ; Bruising, spontaneous R23.3 and Night sweats R61 [facility] [address] [id number] [address] [place] [id number] Jun, [facility] [address] [id number] [address] [place] [id number] Jun, [facility] [address] [id number] [address] [place] [id number] May, [facility] [address] [facility] [id number] [address] [place] [address] May, Myalgia M79.1 and Screening, lipid Z13.220 [facility] [address] [id number] [address] [place] [id number] Apr, Status post cervical spinal fusion Z98.1 ; Fibromyalgia M79.7 and Unsteady gait R26.81 [facility] [address] [id number] [address] [place] [address] Nov, [facility] [address] [id number] [address] [place] [id number] Nov, [facility] [address] [id number] [address] [place] [id number] October, [facility] [address] [facility] [id number] [address] [place] [id number] October, [facility] [address] [id number] [address] [place] [id number] October, [facility] [address] [id number] [address] [place] [id number] October, [facility] [address] [id number] [address] [place] [id number] October, [facility] [address] [id number] [address] [place] [id number] October, Dysuria 788.1 ; Nausea 787.0 2 and Urinary tract infection 599.0 [facility] [address] [id number] [address] [place] [id number] Sep, [facility] [address] [id number] [address] [place] [id number] Sep, [facility] [address] [id number] [address] [place] [id number] Aug, [facility] [address] [id number] [address] [place] [id number] Aug, [facility] [address] [id number] [address] [place] [id number] Aug, [facility] [address] [id number] [address] [place] [id number] Aug, [facility] [address] [id number] [address] [place] [id number] Aug, [facility] [address] [id number] [address] [place] [id number] Aug, [facility] [address] [id number] [address] [place] [id number] Aug, [facility] [address] [id number] [address] [place] [id number] Aug, [facility] [address] [id number] [facility] [place] [address] 19 Aug, 2014 [facility] [address] [id number] [address] [place] [address], [place] [id number] 18 Aug, 2014 [facility] [address] [id number] [address] [place] [address], [place] [id number] 18 Aug, 2014 [facility] [address] [id number] [address] [place] [address], [place] [address] 13 Aug, 2014 [facility] [address] [id number] [address] [place] [address], [place] [address] 13 Aug, 2014 [facility] [address] [id number] [address] [place] [address], [place] [address] 11 Aug, 2014 [facility] [address] [id number] [address] [place] [address], [place] [id number] 11 Aug, 2014 [facility] [address] [id number] [address] [place] [address], [place] [address] 06 Aug, 2014 [facility] [address] [id number] [address] [place] [address], [place] [address] 06 Aug, 2014 [facility] [address] [id number] [address] [place] [address], [place] [address] 05 Aug, 2014 [facility] [address] [id number] [address] [place] [address], [place] [address] 05 Aug, 2014 [facility] [address] [id number] [address] [place] [address], [place] [address] 04 Aug, 2014 [facility] [address] [id number] [address] [place] [address], [place] [address] Aug, [facility] [address] [id number] [address] [place] [address], [place] [id number] Aug, [facility] [address] [id number] [address] [place] [address], [place] [id number] Jul, [facility] [address] [id number] [address] [place] [address], [place] [address] Jul, [facility] [address] [id number] [address] [place] [address], [place] [address] Jul, [facility] [address] [id number] [address] [place] [address], [place] [address] Jul, [facility] [address] [id number] [address] [place] [address], [place] [address] Jul, 2014 [facility] [address] [id number] [address] [place] [address], [place] [address] Jul, 2014 [facility] [address] [id number] [address] [place] [address], [place] [address] Jul, [facility] [address] [id number] [address] [place] [address], [place] [address] Jul, 2014 [facility] [address] [id number] [address] [place] [address], [place] [address] Jul, [facility] [address] [id number] [address] [place] [address], [place] [address] Jul, [facility] [address] [id number] [address] [place] [address], [place] [address] Jul, [facility] [address] [id number] [address] [place] [address], [place] [address] Jul, [facility] [address] [id number] [address] [place] [address], [place] [address] Jul, [facility] [address] [id number] [address] [place] [id number] Jul, [facility] [address] [id number] [address] [place] [id number] Jun, [facility] [address] [id number] [address] [place] [id number] Jun, [facility] [address] [id number] [address] [place] [id number] Jun, [facility] [address] [id number] [address] [place] [address], [place] [address] Jun, [facility] [address] [id number] [address] [place] [address], [place] [address] Jun, [facility] [address] [id number] [address] [place] [address], [place] [address] Jun, [facility] [address] [id number] [address] [place] [address], [place] [address] May, [facility] [address] [id number] [address] [place] [address], [place] [address] May, [facility] [address] [id number] [address] [place] [address], [place] [address] May, [facility] [address] [id number] [address] [place] [address], [place] [address] May, [facility] [address] [id number] [address] [place] [address], [place] [address] May, [facility] [address] [id number] [address] [place] [address], [place] [address] May, [facility] [address] [id number] [address] [place] [address], [place] [address] Apr, [facility] [address] [id number] [address] [place] [address], [place] [address] Apr, [facility] [address] [id number] [address] [place] [address], [place] [address] Apr, [facility] [address] [id number] [address] [place] [address], [place] [address] Apr, [facility] [address] [id number] [address] [place] [address], [place] [address] Apr, [facility] [address] [id number] [address] [place] [address], [place] [address] Apr, [facility] [address] [id number] [address] [address] Mar, [facility] [address] [id number] [address] [place] [address], [place] [address] Mar, [facility] [address] [id number] [address] [place] [address], [place] [address] Mar, [facility] [address] [id number] [address] [place] [address], [place] [address] Mar, 2013 [facility] [address] [id number] [address] [place] [id number] Mar, 2013 [facility] [address] [id number] [address] [place] [address], [place] [address] Mar, [facility] [address] [id number] [address] [place] [address] Mar, 2013 [facility] [address] [id number] [address] [place] [address], [place] [address] Mar, 2013 [facility] [address] [id number] [address] [place] [phone] Mar, [facility] [address] [id number] [address] [place] [phone] Mar, [facility] [address] [id number] [address] [place] [id number] Mar, [facility] [address] [id number] [address] [place] [phone] Mar, [facility] [address] [id number] [address] [place] [id number] 30 Feb, 2013 [facility] [address] [id number] [address] [place] [address], [place] [address] 29 Feb, 2013 [facility] [address] [id number] [address] [place] [address], [place] [address] 29 Feb, 2013 [facility] [address] [id number] [address] [place] [address], [place] [address] 23 Feb, 2013 [facility] [address] [id number] [facility] [place] [address] Feb, [facility] [address] [id number] [address] [place] [address], [place] [address] Feb, [facility] [address] [id number] [address] [place] [address], [place] [address] Feb, [facility] [address] [id number] [address] [place] [address], [place] [address] Jan, [facility] [address] [id number] [address] [place] [address], [place] [address] Jan, [facility] [address] [id number] [address] [place] [address], [place] [address] Jan, [facility] [address] [id number] [address] [place] [address], [place] [address] Dec, [facility] [address] [id number] [address] [place] [address], [place] [address] Dec, [facility] [address] [id number] [address] [place] [address], [place] [address] Dec, [facility] [address] [id number] [address] [place] [address], [place] [address] Dec, [facility] [address] [id number] [address] [place] [address], [place] [address] Sep, [facility] [address] [id number] [address] [place] [address], [place] [address] Sep, [facility] [address] [id number] [address] [place] [address], [place] [address] Sep, [facility] [address] [id number] [address] [place] [address], [place] [address] Sep, [facility] [address] [id number] [address] [place] [address], [place] [address] Sep, [facility] [address] [id number] [address] [place] [address], [place] [address] Sep, [facility] [address] [id number] [address] [place] [address], [place] [address] Sep, [facility] [address] [id number] [address] [place] [address], [place] [address] Sep, [facility] [address] [id number] [address] [place] [address], [place] [address] Aug, [facility] [address] [id number] [address] [place] [address], [place] [address] Aug, [facility] [address] [id number] [address] [place] [address], [place] [address] May, [facility] [address] [id number] [address] [place] [address], [place] [address] May, [facility] [address] [id number] [address] [place] [address], [place] [address] Apr, [facility] [address] [id number] [address] [place] [address], [place] [address] Apr, [facility] [address] [id number] [address] [place] [address], [place] [address] Apr, [facility] [address] [id number] [address] [place] [address], [place] [address] Apr, [facility] [address] [id number] [address] [place] [address], [place] [address] Apr, [facility] [address] [id number] [address] [place] [address] Apr, [facility] [address] [id number] [address] [place] [address], [place] [address] May, [facility] [address] [id number] [address] [place] [address], [place] [address] May, [facility] [address] [id number] [address] [place] [address], [place] [address] May, [facility] [address] [id number] [address] [place] [id number] 15 May, 2012 [facility] [address] [id number] [address] [place] [address], [place] [address] 13 May, 2012 [facility] [address] [id number] [address] [place] [address], [place] [address] 13 May, 2012 [facility] [address] [id number] [address] [place] [address], [place] [address] 13 Apr, 2012 [facility] [address] [id number] [address] [place] [address], [place] [address] 13 Apr, 2012 [facility] [address] [id number] [address] [place] [address], [place] [address] 08 Apr, 2012 [facility] [address] [id number] [address] [place] [address], [place] [address] 08 Apr, 2012 [facility] [address] [id number] [address] [place] [address], [place] [address] 08 Apr, 2012 [facility] [address] [id number] [address] [place] [address], [place] [address] Apr, [facility] [address] [id number] [address] [place] [address], [place] [address] Apr, [facility] [address] [id number] [address] [place] [address], [place] [address] Apr, [facility] [address] [id number] [address] [place] [id number] Apr, [facility] [address] [id number] [address] [place] [address] Apr, [facility] [address] [id number] [address] [place] [id number] Mar, [facility] [address] [id number] [address] [place] [address], [place] [address] Mar, [facility] [address] [id number] [address] [place] [address], [place] [address] Mar, [facility] [address] [id number] [address] [place] [address], [place] [address] Mar, [facility] [address] [id number] [address] [place] [address], [place] [address] Mar, [facility] [address] [id number] [address] [place] [address], [place] [address] Mar, [facility] [address] [id number] [address] [place] [address], [place] [address] Mar, [facility] [address] [id number] [address] [place] [address], [place] [address] Mar, [facility] [address] [id number] [address] [place] [address], [place] [address] Mar, [facility] [address] [id number] [address] [place] [address], [place] [address] Feb, [facility] [address] [id number] [address] [place] [address], [place] [address] 16 Feb, 2012 [facility] [address] [id number] [address] [place] [address], [place] [address] Feb, [facility] [address] [id number] [address] [place] [address], [place] [address] Jan, [facility] [address] [id number] [address] [place] [address], [place] [address] Jan, [facility] [address] [id number] [address] [place] [address], [place] [address] Jan, [facility] [address] [id number] [address] [place] [address], [place] [address] Jan, [facility] [address] [id number] [address] [place] [address], [place] [address] Jan, [facility] [address] [id number] [address] [place] [address], [place] [address] Jan, [facility] [address] [id number] [address] [place] [address], [place] [address] Jan, [facility] [address] [id number] [facility] [place] [address] Jan, [facility] [address] [id number] [address] [place] [address], [place] [address] Jan, [facility] [address] [id number] [address] [place] [address], [place] [address] Jan, [facility] [address] [id number] [address] [place] [address], [place] [address] Dec, [facility] [address] [id number] [address] [place] [address], [place] [address] Dec, [facility] [address] [id number] [address] [place] [address], [place] [address] Dec, [facility] [address] [id number] [address] [place] [address], [place] [address] Dec, [facility] [address] [id number] [address] [place] [address], [place] [address] Nov, [facility] [address] [id number] [address] [place] [address], [place] [address] Nov, [facility] [address] [id number] [address] [place] [address], [place] [address] Nov, [facility] [address] [id number] [address] [place] [address], [place] [address] October, [facility] [address] [id number] [address] [place] [address], [place] [address] October, [facility] [address] [id number] [address] [place] [address], [place] [address] October, [facility] [address] [id number] [address] [place] [address], [place] [address] October, [facility] [address] [id number] [address] [place] [address], [place] [address] October, [facility] [address] [id number] [address] [place] [id number] October, [facility] [address] [id number] [address] [place] [address] Aug, [facility] [address] [id number] [address] [place] [address] 10 Mar, 2011 [facility] [address] [facility] [id number] [address] [place] [address] Nov, [facility] [address] [id number] [address] [place] [address] May, [facility] [address] [facility] [id number] [address] [place] [address] May, [facility] [address] [facility] [id number] [address] [place] [address] Apr, [facility] [address] [facility] [id number] [address] [place] [id number] 15 Mar, 2010 [facility] [address] [facility] [id number] [address] [place] [id number] 15 Mar, 2010 IMMUNIZATIONS No Known Immunizations SOCIAL HISTORY Never Assessed REASON FOR VISIT PLAN OF CARE VITAL SIGNS MEDICATIONS Unknown Medications RESULTS No Results PROCEDURES Procedure Date Ordered Result Body Site COMPUTER DX MAMMOGRAM ADD-ON Apr 30, 2014 INSTRUCTIONS MEDICATIONS ADMINISTERED No Known Medications MEDICAL (GENERAL) HISTORY Type Description Date Medical History Severe spinal stenosis throu gh cervical spine CT and MRI done 10/2014 at [facility] with Neurosurgery at Medical History Migraine BEAR Evaluated and tx at Medical History Sensorineural hearing loss (SNHL) of bot h ears Medical History Denies any history of heart heart proble m or seizure Medical History Hematuria, unspecified type Surgical History cervical spine fusion C5-C7 01/14/2015 Surgical History hysterectomy Surgical History bladder sling Surgical History tonsillectomy Surgical History cholecystectomy Surgical History appendectomy Surgical History Bladder surgery 05/18/15 Surgical History Arterial bleed repaired 05/19/2015 Surgical History cystescope 09/05/2017 Surgical History bladder sling and cystocele 03/2018 Hospitalization History surgeries Hospitalization History depression Hospitalization History psychiatric hospitalizations (last i ncident 2013) x5
--- OUTSIDE RECORDS SUMMARY | 2019-06-19 05:02 | XMS REPORT ---
Author Author Sydnie HANCOCK [facility] Address [address] [place] [address] Care Team Providers Care Hand Grinder Name Role Phone NAHOMY HANCOCK Unavailable PROBLEMS Type Condition ICD9-CM Code PRQ52-QR Code Onset Dates Condition S tatus SNOMED Code Problem Abnormal CT scan, head R93.0 Active 926383613 Problem Bruising, spontaneous R23.3 Active 015929960 Problem Sensorineural hearing loss (SNHL) of both ears H90 .3 Active 318420747 Problem Arthralgia of hip, unspecified laterality M25.559 Active 70856818 Problem Night sweats R61 Active 1467346 0 Problem Grief F43.20 Active 57203423 Problem Hypertension I10 Active 8154044 3 Problem Major depressive disorder, recurrent episode, moderate F33.1 Active 991337094 Problem Imbalance R26.89 Active 231658638 Problem Age-related osteoporosis without current pathological fracture M81.0 Active 41211175 Problem Hormone replacement therapy Z79.890 Ac tive 596142547 Problem Ataxia R27.0 Active 93068821 Problem Bipolar 1 disorder, mixed F31.60 Acti ve 99006200 Problem Allergic rhinitis J30.9 Active 61 983770 Problem Hearing loss, unspecified laterality H91.90 Active 32074146 Problem Generalized anxiety disorder F41.1 A ctive 21082201 Problem History of colon polyps Z86.010 Active 869156006 Problem Hammer toe of right foot M20.41 Activ e 161392313 Problem Hematuria, unspecified type R31.9 Ac tive 02653198 Problem Fibromyalgia M79.7 Active 7920090 7 Problem Bladder spasm N32.89 Active 890786 006 Problem Acute left-sided low back pain with left-sided sciatica M54.42 Active 997411044 Problem Post menopausal syndrome N95.1 Activ e 398794077 Problem Hyperlipidemia, unspecified hyperlipidemia type E7 8.5 Active 80983622 Problem Sciatica of right side M54.31 Active 47423084 Problem Other chronic pain G89.29 Active 8 4224290 Problem Gastritis without bleeding, unspecified chronicity, unspecified gastritis type K29.70 Active 527420960 Problem Sciatica of left side M54.32 Active 98476816 Problem Plantar wart of right foot B07.0 Act mitchell [id number] Problem Slow transit constipation K59.01 Acti ve 06529711 Problem Tobacco use disorder F17.200 Active 570869688 ALLERGIES No Information ENCOUNTERS Encounter Location Date Diagnosis [place] [id number] [address] Apr, [place] [address] [address] Mar, [place] [address] [address] Mar, [place] [address] [address] Feb, Excessive gas R14.3 ; Other chronic pain G89.29 ; Encounter for immunization Z23 ; Hyperlipidemia, unspecified hyperlipidemia type E78.5 ; Bipolar 1 disorder, mixed F31.60 and Other care home (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 Z79.899 [place] [address] [address] Feb, Bipolar 1 disorder, 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 [place] [address] [address] Jan, Sciatica of right side M54.3 1 ; Low back pain M54.5 and Major depressive disorder, recurrent episode, moderate F33.1 [place] [address] [address] Jan, Bipolar 1 disorder, 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 [place] [address] [place] [id number] [place] [address] Dec, Normal pelvic exam Z01.419 [place] [address] [place] [id number] [place] [address] Dec, Bipolar 1 disorder, 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 [facility] [address] [id number] [address] [place] [address] Nov, Bipolar 1 disorder, 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 [facility] [address] 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 [id number] [address] [place] [address] Nov, Bipolar 1 disorder, 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 [facility] [address] [facility] [id number] [address] [place] [address] October, Bipolar 1 disorder, 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 [facility] [address] [facility] [id number] [address] [place] [phone] October, Bipolar 1 disorder, 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 [facility] [address] [facility] [id number] [address] [place] [phone] October, [facility] [address] [facility] [id number] [address] [place] [address] October, Bipolar 1 disorder, 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 ; Generalized anxiety disorder F41.1 and Tobacco use disorder F17.200 [facility] [address] [facility] [id number] [address] [place] [phone] Sep, [facility] [address] [facility] [id number] [address] [place] [address] Sep, Encounter for Medicare annua wellness exam Z00.00 ; Major depressive disorder, recurrent episode, moderate F33.1 ; Allergic rhinitis J30.9 ; Bipolar 1 disorder, mixed F31.60 ; Fibromyalgia M79.7 ; Hyperlipidemia, unspecified hyperlipidemia type E78.5 ; Hormone replacement therapy Z79.890 ; Encounter for screening for lung cancer Z12.2 and Tobacco use disorder F17.[address] [place] [address] [facility] [id number] [address] [place] [address] 23 Sep, 2018 Bipolar 1 disorder, 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 [place] [address] [facility] [id number] [address] [place] [address] Sep, Other chronic pain G89.29 ; Hyperlipidemia, unspecified hyperlipidemia type E78.5 ; Breast cancer screening Z12.31 and Post menopausal syndrome N95.[address] [place] [address] [facility] [id number] [address] [place] [phone] 16 Sep, 2018 Bipolar 1 disorder, 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 [place] [address] [place] [id number] [address] [place] [phone] Sep, Bipolar 1 disorder, 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 ; Generalized anxiety disorder F41.1 and Tobacco use disorder F17.200 [place] [address] [place] [id number] [address] [place] [phone] Sep, Gastritis without bleeding, unspecified chronicity, unspecified gastritis type K29.70 [place] [address] [facility] [id number] [address] [place] [phone] 08 Sep, 2018 Exercise counseling Z71.82 [place] [address] [place] [id number] [address] [place] [phone] Aug, Exercise counseling Z71.82 [place] [address] [place] [id number] [address] [place] [phone] Aug, Bipolar 1 disorder, 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 [place] [address] [place] [id number] [address] [place] [phone] Aug, Exercise counseling Z71.82 [place] [address] [facility] [id number] [address] [place] [phone] Aug, Bipolar 1 disorder, 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 [place] [address] [address] 18 Aug, 2018 Gastritis without bleeding, unspecified chronicity, unspecified gastritis type K29.70 ; Tobacco abuse Z72.0 ; Generalized anxiety disorder F41.1 and Weight gain R63.5 [facility] [address] [address] Aug, Bipolar 1 disorder, 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 ; Generalized anxiety disorder F41.1 and Tobacco use disorder F17.200 [place] [address] [address] Jul, Bipolar 1 disorder, 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 [place] [address] [address] Jul, [place] [address] [address] Jul, Bipolar 1 disorder, 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 [place] [address] [address] Jul, Allergic rhinitis J30.9 ; Ma darion depressive disorder, recurrent episode, moderate F33.1 and Tobacco 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 [place] [address] [address] Jun, [place] [address] [address] Jun, [place] [address] [address] Jun, Bipolar 1 disorder, 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 [place] [address] [address] Jun, Bipolar 1 disorder, 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 [place] [address] [address] Jun, Bipolar 1 disorder, 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 [place] [address] [address] Jun, Generalized anxiety disorder F41.1 ; Tobacco abuse Z72.0 and Major depressive disorder, recurrent episode, moderate F33.1 [place] [address] [place] [id number] [address] [place] [address] May, Bipolar 1 disorder, 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 [place] [address] [place] [id number] [place] [address] May, Bipolar 1 disorder, 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 and Generalized anxiety disorder F41.1 [place] [address] [place] [id number] [place] [address] May, Bipolar 1 disorder, 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 [place] [address] [place] [id number] [place] [address] May, Allergic rhinitis J30.9 [place] [address] [address] May, Bipolar 1 disorder, 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 [place] [address] [place] [id number] [place] [phone] May, [place] [address] [address] Apr, Allergic rhinitis J30.9 ; Dy sfunction of both eustachian tubes H69.83 ; History of bladder surgery Z98.890 and Cervicalgia M54.2 [place] [address] [place] [id number] [address] [place] [phone] Mar, Bipolar 1 disorder, 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 [place] [address] [place] [id number] [place] [address] Mar, [place] [address] [address] Mar, Slow transit constipation K5 9.01 ; Encounter for immunization Z23 and Generalized anxiety disorder F41.1 [place] [address] [place] [id number] [address] [place] [phone] 27 Feb, 2018 Bipolar 1 disorder, 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 [facility] [address] [id number] [address] [place] [phone] 26 Feb, 2018 Allergic rhinitis J30.9 [facility] [address] [id number] [address] [place] [phone] 24 Feb, 2018 Bipolar 1 disorder, 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 [facility] [address] [id number] [address] [place] [phone] 20 Feb, 2018 Bipolar 1 disorder, 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 and Generalized anxiety disorder F41.1 [facility] [address] [id number] [address] [place] [phone] 13 Feb, 2018 Bipolar 1 disorder, 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 [facility] [address] [id number] [address] [place] [phone] 11 Feb, 2018 Allergic rhinitis J30.9 [facility] [address] [id number] [address] [place] [phone] 05 Feb, 2018 [facility] [address] [id number] [address] [place] [phone] Jan, Bipolar 1 disorder, 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 [facility] [address] [facility] [id number] [address] [place] [phone] Jan, Low back pain M54.5 ; Hyperl ipidemia, unspecified hyperlipidemia type E78.5 and Bipolar 1 disorder, mixed F31.60 [facility] [address] [id number] [address] [place] [phone] Jan, Bipolar 1 disorder, 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 [facility] [address] [id number] [address] [place] [phone] Jan, Bipolar 1 disorder, 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 [facility] [address] [facility] [id number] [address] [place] [phone] Jan, Bipolar 1 disorder, 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 [facility] [address] [facility] [id number] [address] [place], [place] [id number] Jan, Bipolar 1 disorder, 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 [facility] [address] [facility] [id number] [address] [place] [address] Dec, Bipolar 1 disorder, 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 ; Generalized anxiety disorder F41.1 and Other care home (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 Z79.899 [facility] [address] 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 [id number] [address] [place] [address] Dec, Bipolar 1 disorder, 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 [facility] [address] [facility] [id number] [address] [place] [address] Dec, Bipolar 1 disorder, 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 [facility] [address] [facility] [id number] [address] [place] [phone] Nov, Bipolar 1 disorder, 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 [facility] [address] [facility] [id number] [address] [place] [phone] Nov, Bipolar 1 disorder, 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 [facility] [address] [facility] [id number] [address] [place] [id number] Nov, Bipolar 1 disorder, 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 [facility] [address] [facility] [id number] [address] [place] [phone] Nov, Allergic rhinitis J30.9 [facility] [address] [facility] [id number] [address] [place] [phone] Nov, Allergic rhinitis J30.9 [facility] [address] [facility] [id number] [address] [place] [phone] Nov, [facility] [address] [facility] [id number] [address] [place] [phone] Nov, Bipolar 1 disorder, 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 [facility] [address] [address] Nov, Fibromyalgia M79.7 and Aller gic rhinitis J30.9 [facility] [address] [address] October, Bipolar 1 disorder, 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 [facility] [address] [address] October, Acute nasopharyngitis J00 [facility] [address] [address] October, Bitten or stung by nonvenomo us insect and other nonvenomous arthropods, initial encounter W57.XXXA and Insect bite (nonvenomous) of abdominal wall, initial encounter S30.861A [place] [address] [address] October, Insect bite (nonvenomous) of abdominal wall, initial encounter S30.861A ; Bitten or stung by nonvenomous insect and other nonvenomous arthropods, initial encounter W57.XXXA ; Allergic rhinitis J30.9 and Low back pain M54.5 [place] [address] [address] October, Bipolar 1 disorder, 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 [place] [address] [address] October, [facility] [address] [address] October, [facility] [address] [address] October, Bipolar 1 disorder, 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 [facility] [address] [address] Sep, Bipolar 1 disorder, 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 [place] [address] [address] Sep, Other chronic pain G89.29 [facility] [address] [facility] [id number] [address] [place] [phone] Sep, [facility] [address] [facility] [id number] [address] [place] [address] Sep, Bipolar 1 disorder, 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 [facility] [address] [place] [id number] [address] [place] [address] Sep, Allergic rhinitis J30.9 and Sciatica of left side M54.32 [facility] [address] [facility] [id number] [address] [place] [address] Sep, Bipolar 1 disorder, 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 [facility] [address] [place] [id number] [address] [place] [address] Sep, Bipolar 1 disorder, 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 and Generalized anxiety disorder F41.1 [facility] [address] [facility] [id number] [address] [place] [phone] Aug, [facility] [address] [facility] [id number] [address] [place] [address] Aug, Bipolar 1 disorder, 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 [facility] [address] [place] [id number] [address] [place] [phone] Aug, Bipolar 1 disorder, 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 [facility] [address] [place] [id number] [address] [place] [phone] Aug, [facility] [address] [facility] [id number] [address] [place] [phone] Aug, Generalized anxiety disorder F41.1 [facility] [address] [place] [id number] [address] [place] [phone] Aug, Bipolar 1 disorder, 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 [facility] [address] [place] [id number] [address] [place] [address] Aug, Plantar wart of right foot B 07.0 [facility] [address] [facility] [id number] [address] [place] [address] Aug, Bipolar 1 disorder, 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 [facility] [address] [place] [id number] [address] [place] [phone] Jul, Bipolar 1 disorder, 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 [facility] [address] [place] [id number] [address] [place] [phone] Jul, [facility] [address] [place] [id number] [address] [place] [phone] 14 Jul, 2017 Bipolar 1 disorder, 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 [facility] [address] [place] [id number] [place] [address] 09 Jul, 2017 Generalized anxiety disorder F41.1 [facility] [address] [place] [id number] [address] [place] [phone] 07 Jul, 2017 Bipolar 1 disorder, 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 [facility] [address] [place] [id number] [address] [place] [phone] 07 Jul, 2017 Acute left-sided low back pa in with left-sided sciatica M54.42 [facility] [address] [place] [id number] [address] [place] [phone] 05 Jul, 2017 Coccydynia M53.3 [facility] [address] [place] [id number] [address] [place] [phone] Jun, Bipolar 1 disorder, 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 [facility] [address] [facility] [id number] [address] [place] [phone] Jun, Acute nasopharyngitis J00 [facility] [address] [place] [id number] [address] [place] [address] Jun, Bipolar 1 disorder, 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 [facility] [address] [place] [id number] [address] [place] [address] Jun, Fibromyalgia M79.7 [facility] [address] [place] [address] [address] Jun, Bipolar 1 disorder, 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 [place] [address] [address] Jun, Fibromyalgia M79.7 and Bipol ar 1 disorder, mixed F31.60 [place] [address] [address] May, Bipolar 1 disorder, 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 ; Generalized anxiety disorder F41.1 and Other care home (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 Z79.899 [place] [address] [address] May, Bipolar 1 disorder, 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 [facility] [address] [address] May, Cough R05 and Body aches R52 [facility] [address] [address] May, Bladder spasm N32.89 and Acu te cystitis without hematuria N30.00 [place] [address] [address] May, Bipolar 1 disorder, 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 [place] [address] [address] Apr, [place] [address] [address] Apr, Major depressive disorder, r ecurrent episode, moderate F33.1 and Encounter for immunization Z23 [place] [address] [address] Apr, Bipolar 1 disorder, mixed F3 1.60 [place] [address] [address] Apr, Bipolar 1 disorder, mixed F3 1.60 [place] [address] [address] Apr, Bipolar 1 disorder, mixed F3 1.60 [facility] [address] [place] [id number] [address] [place] [phone] Apr, Yeast vaginitis B37.3 [facility] [address] [place] [id number] [address] [place] [address] Apr, Bipolar 1 disorder, mixed F3 1.60 [facility] [address] [place] [id number] [address] [place] [address] Apr, Cellulitis L03.[address] for immunization Z23 [facility] [id number] Apr, Bipolar 1 disorder, mixed F3 1.60 [facility] [id number] [place] [id number] Mar, Bipolar 1 disorder, mixed F3 1.60 [place] [address] [address] Mar, Bipolar 1 disorder, mixed F3 1.60 [facility] [address] [address] Mar, Imbalance R26.89 [address] for immunization Z23 [facility] [id number] [place] [id number] Mar, Generalized anxiety disorder F41.1 [facility] [id number] [place] [id number] Mar, Bipolar 1 disorder, mixed F3 1.60 [facility] [id number] [place] [id number] Mar, Generalized anxiety disorder F41.1 [facility] [id number] [place] [id number] Mar, Bipolar 1 disorder, mixed F3 1.60 [facility] [id number] [place] [id number] Mar, Bipolar 1 disorder, mixed F3 1.60 [place] [id number] [place] [id number] Feb, Bipolar 1 disorder, mixed F3 1.60 [place] [address] [id number] [place] [id number] Feb, Bipolar 1 disorder, mixed F3 1.60 and Generalized anxiety disorder F41.1 [place] [address] [address] Feb, Gastritis without bleeding, unspecified chronicity, unspecified gastritis type K29.70 ; Hammer toe of right foot M20.41 and Other viral warts B07.8 [place] [id number] [place] [phone] Feb, Bipolar 1 disorder, mixed F3 1.60 [place] [address] [phone] Feb, Bipolar 1 disorder, mixed F3 1.60 [place] [address] [id number] [place] [phone] Feb, Bipolar 1 disorder, mixed F3 1.60 [place] [address] [address] Jan, Encounter for screening mamm ogram for breast cancer Z12.31 ; Other viral warts B07.8 and Allergic rhinitis J30.9 [place] [address] [id number] [place] [phone] Jan, Bipolar 1 disorder, mixed F3 1.60 [place] [id number] [place] [phone] Jan, Bipolar 1 disorder, mixed F3 1.60 [place] [address] [id number] [place] [phone] Jan, [place] [address] [place] [id number] [address] [place] [phone] Jan, Bipolar 1 disorder, mixed F3 1.60 [place] [id number] [place] [id number] [address] [place] [phone] Jan, Bipolar 1 disorder, mixed F3 1.60 [place] [address] [place] [id number] [address] [place] [address] Jan, Allergic rhinitis J30.9 ; He maturia R31.9 and Colon cancer screening Z12.11 [place] [address] [address] Dec, Bipolar 1 disorder, mixed F3 1.60 [place] [address] [address] Dec, Bipolar 1 disorder, mixed F3 1.60 ; Generalized anxiety disorder F41.1 and 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 [place] [address] [address] Dec, Bipolar 1 disorder, mixed F3 1.60 [place] [address] [address] Dec, Bipolar 1 disorder, mixed F3 1.60 [place] [address] [address] Dec, Bipolar 1 disorder, mixed F3 1.60 [place] [address] [address] Dec, Low back pain M54.5 and Recu rrent urinary tract infection N39.0 [place] [address] [place] [id number] [address] [place] [address] Nov, Bipolar 1 disorder, mixed F3 1.60 [place] [address] [place] [id number] [address] [place] [address] Nov, Bipolar 1 disorder, mixed F3 1.60 [place] [address] [address] Nov, Bipolar 1 disorder, mixed F3 1.60 [facility] [address] [facility] [id number] [address] [place] [phone] Nov, Bipolar 1 disorder, mixed F3 1.60 [facility] [address] [place] [id number] [address] [place] [address] Nov, [place] [address] [place] [id number] [place] [address] Nov, Anesthesia of skin R20.0 ; F requent UTI N39.0 ; Tobacco abuse Z72.0 and Colon cancer screening Z12.11 [place] [address] [place] [id number] [address] [place] [phone] Nov, Bipolar 1 disorder, mixed F3 1.60 [place] [address] [place] [id number] [place] [address] October, Bipolar 1 disorder, mixed F3 1.60 [place] [address] [address] October, Bipolar 1 disorder, mixed F3 1.60 [place] [address] [address] October, Bipolar 1 disorder, mixed F3 1.60 [place] [address] [place] [id number] [place] [address] October, Bipolar 1 disorder, mixed F3 1.60 [place] [address] [place] [id number] [address] [place] [address] October, Bipolar 1 disorder, mixed F3 1.60 [place] [address] [place] [id number] [address] [place] [phone] October, Cervicalgia M54.2 and Bipola r 1 disorder, mixed F31.60 [place] [address] [place] [id number] [address] [place] [address] October, Hypertension I10 ; Hyperlipi demia, unspecified hyperlipidemia type E78.5 and Family history of thyroid disease Z83.49 [place] [address] [address] October, [place] [address] [place] [address] October, Hypertension I10 ; Hyperlipi demia, unspecified hyperlipidemia type E78.5 and Family history of thyroid problem Z83.49 [place] [address] [address] October, Bipolar 1 disorder, mixed F3 1.60 [place] [address] [address] Sep, Bipolar 1 disorder, mixed F3 1.60 [place] [address] [address] Sep, Bipolar 1 disorder, mixed F3 1.60 [place] [address] [address] Sep, Bipolar 1 disorder, mixed F3 1.60 [place] [address] [address] Sep, History of colon polyps Z86. 010 and Hematochezia K92.1 [place] [address] [address] Sep, Major depressive disorder, r ecurrent episode, moderate F33.1 [place] [address] [place] [id number] [place] [address] Sep, Bipolar 1 disorder, mixed F3 1.60 [place] [address] [address] Aug, Hot flashes due to menopause N95.1 [place] [address] [place] [id number] [address] [place] [address] Aug, Bipolar 1 disorder, mixed F3 1.60 [place] [address] [address] Aug, [facility] [address] [address] Aug, Bipolar 1 disorder, mixed F3 1.60 [place] [address] [place] [address] Aug, Bipolar 1 disorder, mixed F3 1.60 [place] [address] [place] [address] Aug, Hot flashes due to menopause N95.1 ; Cervicalgia M54.2 and Ataxia R27.0 [place] [address] [place] [address] Jul, Bipolar 1 disorder, mixed F3 1.60 [place] [address] [address] Jul, Bipolar 1 disorder, mixed F3 1.60 [place] [address] [address] Jul, Bipolar 1 disorder, mixed F3 1.60 [place] [address] [address] Jul, Bipolar 1 disorder, mixed F3 1.60 [place] [address] [address] Jul, Bipolar 1 disorder, mixed F3 1.60 [place] [address] [address] Jul, Cervicalgia M54.2 ; Tremor R 25.1 ; Hearing abnormally acute, unspecified laterality H93.239 ; Alopecia L65.9 ; Encounter for immunization Z23 and Family history of thyroid disease Z83.49 [place] [address] [address] Jul, Bipolar 1 disorder, mixed F3 1.60 [place] [address] [place] [address] Jun, [facility] [address] [facility] [id number] [address] [place] [address] Jun, Hearing disorder, unspecifie d laterality H93.299 [facility] [address] [id number] [address] [place] [address] Jun, Bipolar 1 disorder, mixed F3 1.60 [facility] [address] [facility] [id number] [address] [place] [address] Jun, Bipolar 1 disorder, mixed F3 1.60 [facility] [address] [facility] [id number] [address] [place] [phone] Jun, Allergic rhinitis J30.9 [facility] [address] [facility] [id number] [address] [place] [phone] Jun, Bipolar 1 disorder, mixed F3 1.60 [facility] [address] [facility] [id number] [address] [place] [address] Jun, Bipolar 1 disorder, mixed F3 1.60 [facility] [address] [facility] [id number] [address] [place] [address] Jun, Allergic rhinitis J30.9 [facility] [address] [facility] [id number] [address] [place] [address] Jun, Allergic rhinitis J30.9 [facility] [address] [facility] [id number] [address] [place] [address] Jun, Bipolar 1 disorder, mixed F3 1.60 [facility] [address] [facility] [id number] [address] [place] [address] May, Bipolar 1 disorder, mixed F3 1.60 [facility] [address] [facility] [id number] [address] [place] [address] May, Bipolar 1 disorder, mixed F3 1.60 [facility] [address] [facility] [id number] [address] [place] [address] May, [facility] [address] [place] [id number] [place] [address] May, Bipolar 1 disorder, mixed F3 1.60 [facility] [address] [address] May, Bipolar 1 disorder, mixed F3 1.60 [facility] [address] [place] [id number] [place] [address] May, [facility] [address] [address] May, [facility] [address] [address] May, [facility] [address] [address] May, Abdominal pain, unspecified location R10.9 [facility] [address] [address] May, [facility] [address] [address] Apr, Hematuria R31.9 ; Ataxia R27 .0 and Hearing loss, unspecified laterality H91.90 [facility] [address] [address] Apr, Bipolar 1 disorder, mixed F3 1.60 [facility] [address] [place] [id number] [place] [address] Apr, Acute effusion of both middl e ears H65.193 [facility] [address] [place] [id number] [address] [place] [address] Apr, Hematuria R31.9 and Pyelonep hritis N12 [facility] [address] [place] [id number] [place] [address] Apr, [facility] [address] [address] Mar, Bipolar 1 disorder, mixed F3 1.60 [place] [address] [place] [id number] [address] [place] [address] Mar, [place] [address] [place] [address] Mar, Bipolar 1 disorder, mixed F3 1.60 [place] [address] [place] [id number] [address] [place] [address] Mar, Bipolar 1 disorder, mixed F3 1.60 [place] [address] [address] Mar, Encounter for immunization Z 23 and Gastritis without bleeding, unspecified chronicity, unspecified gastritis type K29.70 [place] [address] [place] [id number] [address] [place] [address] Mar, Bipolar 1 disorder, mixed F3 1.60 and Grief F43.20 [place] [address] [place] [id number] [address] [place] [address] Mar, Gastritis without bleeding, unspecified chronicity, unspecified gastritis type K29.70 [place] [address] [place] [id number] [address] [place] [address] Mar, Bipolar 1 disorder, mixed F3 1.60 [place] [address] [place] [id number] [address] [place] [address] Mar, Gastritis without bleeding, unspecified chronicity, unspecified gastritis type K29.70 [place] [address] [place] [id number] [address] [place] [address] Mar, [place] [address] [place] [id number] [address] [place] [address] Feb, Bipolar 1 disorder, mixed F3 1.60 [place] [address] [place] [id number] [address] [place] [address] Feb, Bipolar 1 disorder, mixed F3 1.60 and Grief F43.20 [place] [address] [place] [id number] [address] [place] [address] Feb, Gastritis without bleeding, unspecified chronicity, unspecified gastritis type K29.70 [facility] [address] [facility] [id number] [address] [place] [address] 14 Feb, 2016 Bipolar 1 disorder, mixed F3 1.60 [facility] [address] [facility] [id number] [address] [place] [phone] 09 Feb, 2016 Gastroesophageal reflux dise ase, esophagitis presence not specified K21.9 [facility] [address] [place] [id number] [address] [place] [phone] Jan, Bipolar 1 disorder, mixed F3 1.60 [facility] [address] [place] [id number] [address] [place] [id number] Jan, Bipolar 1 disorder, mixed F3 1.60 and Unsteady gait R26.81 [place] [address] [place] [id number] [address] [place] [address] Jan, Bipolar 1 disorder, mixed F3 1.60 [facility] [address] [place] [id number] [address] [place] [address] Jan, Bipolar 1 disorder, mixed F3 1.60 and Other care home (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 Z79.899 [place] [address] [place] [id number] [address] [place] [address] Jan, Bipolar 1 disorder, mixed F3 1.60 [facility] [address] [place] [id number] [address] [place] [address] Jan, Bipolar 1 disorder, mixed F3 1.60 [place] [address] [place] [id number] [address] [place] [address] Jan, Bipolar 1 disorder, mixed F3 1.60 ; Grief F43.20 and Other care home (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 Z79.899 [place] [address] [facility] [id number] [address] [place] [address] Jan, Bipolar 1 disorder, mixed F3 1.60 [facility] [address] [place] [id number] [address] [place], [place] [id number] Dec, [facility] [address] [place] [address] Dec, Bipolar 1 disorder, mixed F3 1.60 ; Vitamin D deficiency, unspecified E55.9 ; H/O allergic rhinitis Z87.09 ; Other chronic pain G89.29 and Dorsalgia, unspecified M54.9 [facility] [address] [place] [id number] [place] [address] Dec, [facility] [address] [place] [id number] [address] [place] [address] Dec, Bipolar 1 disorder, mixed F3 1.60 [place] [address] [address] Dec, Major depressive disorder, r ecurrent episode, moderate F33.1 [place] [address] [address] Dec, Major depressive disorder, r ecurrent episode, moderate F33.1 [facility] [address] [place] [id number] [address] [place] [address] Nov, [place] [address] [address] Nov, Bipolar 1 disorder, mixed F3 1.60 [place] [address] [place] [id number] [address] [place] [address] Nov, Major depressive disorder, r ecurrent episode, moderate F33.1 [place] [address] [place] [id number] [address] [place] [address] Nov, Cervicalgia M54.2 ; Arthralg ia of hip, unspecified laterality M25.559 ; Allergic rhinitis J30.9 and Hormone replacement therapy Z79.890 [facility] [address] [place] [id number] [address] [place] [address] Nov, Other seasonal allergic rhin itis J30.2 [facility] [address] [place] [id number] [address] [place] [address] October, Major depressive disorder, r ecurrent episode, moderate F33.1 [place] [address] [facility] [id number] [address] [place] [address] October, Major depressive disorder, r ecurrent episode, moderate F33.1 and Arthralgia of hip, unspecified laterality M25.559 [place] [address] [place] [address] October, Grief F43.20 ; Hypertension I10 ; Hyperlipidemia, unspecified hyperlipidemia type E78.5 ; Other chronic pain G89.29 and Allergic rhinitis, unspecified allergic rhinitis type J30.9 [place] [address] [place] [id number] [address] [place] [address] October, Major depressive disorder, r ecurrent episode, moderate F33.1 [place] [address] [place] [id number] [address] [place] [address] Sep, Major depressive disorder, r ecurrent episode, moderate F33.1 [place] [address] [facility] [id number] [address] [place] [address] Sep, [place] [address] [place] [id number] [address] [place] [address] Sep, Major depressive disorder, r ecurrent episode, moderate F33.1 [place] [address] [place] [id number] [address] [place] [address] Sep, Grief F43.20 [place] [address] [place] [id number] [address] [place] [address] Aug, Major depressive disorder, r ecurrent episode, moderate F33.1 [place] [address] [place] [id number] [address] [place] [address] Aug, Bipolar 1 disorder, mixed F3 1.60 [place] [address] [place] [id number] [address] [place] [address] Aug, Allergic rhinitis J30.9 ; Ce rvicalgia M54.2 and Low back pain M54.5 [facility] [address] [facility] [id number] [address] [place] [address] Aug, Major depressive disorder, r ecurrent episode, moderate F33.1 [facility] [address] [facility] [id number] [address] [place] [address] Aug, Sinusitis J32.9 and Tobacco 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 [facility] [address] [place] [address] Aug, [facility] [address] [address] Aug, Depressive disorder, not els ewhere classified F32.9 ; Hormone replacement therapy Z79.[address] scan, head R93.0 [place] [address] [address] Aug, Major depressive disorder, r ecurrent episode, moderate F33.1 [facility] [address] [place] [address] Jul, Major depressive disorder, r ecurrent episode, moderate F33.1 [facility] [address] [place] [id number] [address] [place] [address] Jul, Abdominal pain R10.9 and Hyp ertension I10 [facility] [address] [place] [id number] [address] [place] [address] Jul, [facility] [address] [place] [id number] [address] [place] [address] Jul, Major depressive disorder, r ecurrent episode, moderate F33.1 [facility] [address] [place] [id number] [address] [place] [address] Jul, [facility] [address] [place] [id number] [address] [place] [address] Jul, [facility] [address] [id number] [address] [place] [address] Jun, [facility] [address] [id number] [address] [place] [address] Jun, Depressive disorder, not els ewhere classified F32.9 [facility] [address] [id number] [address] [place] [phone] Jun, [facility] [address] [id number] [address] [place] [address] Jun, [facility] [address] [id number] [address] [place] [id number] Jun, Arthralgia of hip, unspecifi ed laterality M25.559 ; Bruising, spontaneous R23.3 and Night sweats R61 [facility] [address] [id number] [address] [place] [phone] Jun, [facility] [address] [id number] [address] [place] [phone] Jun, [facility] [address] [id number] [address] [place] [id number] May, [facility] [address] [facility] [id number] [address] [place] [address] May, Myalgia M79.1 and Screening, lipid Z13.220 [facility] [address] [id number] [address] [place] [address] Apr, Status post cervical spinal fusion Z98.1 ; Fibromyalgia M79.7 and Unsteady gait R26.81 [facility] [address] [id number] [address] [place] [phone] Nov, [facility] [address] [id number] [address] [place] [phone] Nov, [facility] [address] [id number] [address] [place] [phone] October, [facility] [address] [facility] [id number] [address] [place] [phone] October, [facility] [address] [id number] [address] [place] [phone] October, [facility] [address] [id number] [address] [place] [id number] October, [facility] [address] [id number] [address] [place] [id number] October, [facility] [address] [id number] [address] [place] [id number] October, Dysuria 788.1 ; Nausea 787.0 2 and Urinary tract infection 599.0 [facility] [address] [id number] [address] [place] [id number] Sep, [facility] [address] [id number] [address] [place] [id number] Sep, [facility] [address] [id number] [address] [place] [phone] Aug, [facility] [address] [id number] [address] [place] [phone] Aug, [facility] [address] [id number] [address] [place] [phone] Aug, [facility] [address] [id number] [address] [place] [id number] Aug, [facility] [address] [id number] [address] [place] [phone] Aug, [facility] [address] [id number] [address] [place] [phone] Aug, [facility] [address] [id number] [address] [place] [phone] Aug, [facility] [address] [id number] [address] [place] [phone] Aug, [facility] [address] [id number] [facility] [place] [id number] 19 Aug, 2014 [facility] [address] [id number] [address] [place] [address], [place] [id number] 18 Aug, 2014 [facility] [address] [id number] [address] [place] [address], [place] [id number] 18 Aug, 2014 [facility] [address] [id number] [address] [place] [address], [place] [id number] 13 Aug, 2014 [facility] [address] [id number] [address] [place] [address], [place] [id number] 13 Aug, 2014 [facility] [address] [id number] [address] [place] [address], [place] [id number] 11 Aug, 2014 [facility] [address] [id number] [address] [place] [address], [place] [id number] 11 Aug, 2014 [facility] [address] [id number] [address] [place] [address], [place] [id number] 06 Aug, 2014 [facility] [address] [id number] [address] [place] [address], [place] [id number] 06 Aug, 2014 [facility] [address] [id number] [address] [place] [address], [place] [id number] 05 Aug, 2014 [facility] [address] [id number] [address] [place] [address], [place] [id number] 05 Aug, 2014 [facility] [address] [id number] [address] [place] [address], [place] [id number] 04 Aug, 2014 [facility] [address] [id number] [address] [place] [address], [place] [id number] Aug, [facility] [address] [id number] [address] [place] [address], [place] [id number] Aug, [facility] [address] [id number] [address] [place] [address], [place] [id number] Jul, [facility] [address] [id number] [address] [place] [address], [place] [id number] Jul, [facility] [address] [id number] [address] [place] [address], [place] [id number] Jul, [facility] [address] [id number] [address] [place] [address], [place] [id number] Jul, [facility] [address] [id number] [address] [place] [address], [place] [address] Jul, 2014 [facility] [address] [id number] [address] [place] [address], [place] [address] Jul, 2014 [facility] [address] [id number] [address] [place] [address], [place] [address] Jul, [facility] [address] [id number] [address] [place] [address], [place] [address] Jul, 2014 [facility] [address] [id number] [address] [place] [address], [place] [address] Jul, [facility] [address] [id number] [address] [place] [address], [place] [address] Jul, [facility] [address] [id number] [address] [place] [address], [place] [address] Jul, [facility] [address] [id number] [address] [place] [address], [place] [address] Jul, [facility] [address] [id number] [address] [place] [address], [place] [address] Jul, [facility] [address] [id number] [address] [place] [address] Jul, [facility] [address] [id number] [address] [place] [address] Jun, [facility] [address] [id number] [address] [place] [address] Jun, [facility] [address] [id number] [address] [place] [address] Jun, [facility] [address] [id number] [address] [place] [address], [place] [address] Jun, [facility] [address] [id number] [address] [place] [address], [place] [address] Jun, [facility] [address] [id number] [address] [place] [address], [place] [address] Jun, [facility] [address] [id number] [address] [place] [address], [place] [address] May, [facility] [address] [id number] [address] [place] [address], [place] [address] May, [facility] [address] [id number] [address] [place] [address], [place] [address] May, [facility] [address] [id number] [address] [place] [address], [place] [address] May, [facility] [address] [id number] [address] [place] [address], [place] [address] May, [facility] [address] [id number] [address] [place] [address], [place] [address] May, [facility] [address] [id number] [address] [place] [address], [place] [address] Apr, [facility] [address] [id number] [address] [place] [address], [place] [address] Apr, [facility] [address] [id number] [address] [place] [address], [place] [address] Apr, [facility] [address] [id number] [address] [place] [address], [place] [address] Apr, [facility] [address] [id number] [address] [place] [address], [place] [address] Apr, [facility] [address] [id number] [address] [place] [address], [place] [address] Apr, [facility] [address] [id number] [address] [address] Mar, [facility] [address] [id number] [address] [place] [address], [place] [address] Mar, [facility] [address] [id number] [address] [place] [address], [place] [address] Mar, [facility] [address] [id number] [address] [place] [address], [place] [address] Mar, 2013 [facility] [address] [id number] [address] [place] [id number] Mar, 2013 [facility] [address] [id number] [address] [place] [address], [place] [address] Mar, [facility] [address] [id number] [address] [place] [address] Mar, 2013 [facility] [address] [id number] [address] [place] [address], [place] [address] Mar, 2013 [facility] [address] [id number] [address] [place] [address] Mar, [facility] [address] [id number] [address] [place] [id number] Mar, [facility] [address] [id number] [address] [place] [address] Mar, [facility] [address] [id number] [address] [place] [address] Mar, [facility] [address] [id number] [address] [place] [address] 30 Feb, 2013 [facility] [address] [id number] [address] [place] [address], [place] [address] 29 Feb, 2013 [facility] [address] [id number] [address] [place] [address], [place] [address] 29 Feb, 2013 [facility] [address] [id number] [address] [place] [address], [place] [address] 23 Feb, 2013 [facility] [address] [id number] [facility] [place] [address] Feb, [facility] [address] [id number] [address] [place] [address], [place] [address] Feb, [facility] [address] [id number] [address] [place] [address], [place] [address] Feb, [facility] [address] [id number] [address] [place] [address], [place] [address] Jan, [facility] [address] [id number] [address] [place] [address], [place] [address] Jan, [facility] [address] [id number] [address] [place] [address], [place] [address] Jan, [facility] [address] [id number] [address] [place] [address], [place] [address] Dec, [facility] [address] [id number] [address] [place] [address], [place] [address] Dec, [facility] [address] [id number] [address] [place] [address], [place] [address] Dec, [facility] [address] [id number] [address] [place] [address], [place] [address] Dec, [facility] [address] [id number] [address] [place] [address], [place] [address] Sep, [facility] [address] [id number] [address] [place] [address], [place] [address] Sep, [facility] [address] [id number] [address] [place] [address], [place] [address] Sep, [facility] [address] [id number] [address] [place] [address], [place] [address] Sep, [facility] [address] [id number] [address] [place] [address], [place] [address] Sep, [facility] [address] [id number] [address] [place] [address], [place] [address] Sep, [facility] [address] [id number] [address] [place] [address], [place] [address] Sep, [facility] [address] [id number] [address] [place] [address], [place] [address] Sep, [facility] [address] [id number] [address] [place] [address], [place] [address] Aug, [facility] [address] [id number] [address] [place] [address], [place] [address] Aug, [facility] [address] [id number] [address] [place] [address], [place] [address] May, [facility] [address] [id number] [address] [place] [address], [place] [address] May, [facility] [address] [id number] [address] [place] [address], [place] [address] Apr, [facility] [address] [id number] [address] [place] [address], [place] [address] Apr, [facility] [address] [id number] [address] [place] [address], [place] [address] Apr, [facility] [address] [id number] [address] [place] [address], [place] [address] Apr, [facility] [address] [id number] [address] [place] [address], [place] [address] Apr, [facility] [address] [id number] [address] [place] [address] Apr, [facility] [address] [id number] [address] [place] [address], [place] [address] May, [facility] [address] [id number] [address] [place] [address], [place] [address] May, [facility] [address] [id number] [address] [place] [address], [place] [address] May, [facility] [address] [id number] [address] [id number] 15 May, 2012 [facility] [address] [id number] [address] [place] [address], [place] [address] 13 May, 2012 [facility] [address] [id number] [address] [place] [address], [place] [address] 13 May, 2012 [facility] [address] [id number] [address] [place] [address], [place] [address] 13 Apr, 2012 [facility] [address] [id number] [address] [place] [address], [place] [address] 13 Apr, 2012 [facility] [address] [id number] [address] [place] [address], [place] [address] 08 Apr, 2012 [facility] [address] [id number] [address] [place] [address], [place] [address] 08 Apr, 2012 [facility] [address] [id number] [address] [place] [address], [place] [address] 08 Apr, 2012 [facility] [address] [id number] [address] [place] [address], [place] [address] Apr, [facility] [address] [id number] [address] [place] [address], [place] [address] Apr, [facility] [address] [id number] [address] [place] [address], [place] [address] Apr, [facility] [address] [id number] [address] [address] Apr, [facility] [address] [id number] [address] [address] Apr, [facility] [address] [id number] [address] [id number] Mar, [facility] [address] [id number] [address] [place] [address], [place] [address] Mar, [facility] [address] [id number] [address] [place] [address], [place] [address] Mar, [facility] [address] [id number] [address] [place] [address], [place] [address] Mar, [facility] [address] [id number] [address] [place] [address], [place] [address] Mar, [facility] [address] [id number] [address] [place] [address], [place] [address] Mar, [facility] [address] [id number] [address] [place] [address], [place] [address] Mar, [facility] [address] [id number] [address] [place] [address], [place] [address] Mar, [facility] [address] [id number] [address] [place] [address], [place] [address] Mar, [facility] [address] [id number] [address] [place] [address], [place] [address] Feb, [facility] [address] [id number] [address] [place] [address], [place] [address] 16 Feb, 2012 [facility] [address] [id number] [address] [place] [address], [place] [address] Feb, [facility] [address] [id number] [address] [place] [address], [place] [address] Jan, [facility] [address] [id number] [address] [place] [address], [place] [address] Jan, [facility] [address] [id number] [address] [place] [address], [place] [address] Jan, [facility] [address] [id number] [address] [place] [address], [place] [address] Jan, [facility] [address] [id number] [address] [place] [address], [place] [address] Jan, [facility] [address] [id number] [address] [place] [address], [place] [address] Jan, [facility] [address] [id number] [address] [place] [address], [place] [address] Jan, [facility] [address] [id number] [facility] [place] [address] Jan, [facility] [address] [id number] [address] [place] [address], [place] [address] Jan, [facility] [address] [id number] [address] [place] [address], [place] [address] Jan, [facility] [address] [id number] [address] [place] [address], [place] [address] Dec, [facility] [address] [id number] [address] [place] [address], [place] [address] Dec, [facility] [address] [id number] [address] [place] [address], [place] [address] Dec, [facility] [address] [id number] [address] [place] [address], [place] [address] Dec, [facility] [address] [id number] [address] [place] [address], [place] [address] Nov, [facility] [address] [id number] [address] [place] [address], [place] [address] Nov, [facility] [address] [id number] [address] [place] [address], [place] [address] Nov, [facility] [address] [id number] [address] [place] [address], [place] [address] October, [facility] [address] [id number] [address] [place] [address], [place] [address] October, [facility] [address] [id number] [address] [place] [address], [place] [address] October, [facility] [address] [id number] [address] [place] [address], [place] [address] October, [facility] [address] [id number] [address] [place] [address], [place] [address] October, [facility] [address] [id number] [address] [place] [address] October, [facility] [address] [id number] [address] [address] Aug, [facility] [address] [id number] [address] [address] Mar, [facility] [address] [facility] [id number] [address] [id number] Nov, [facility] [address] [facility] [id number] [address] [place] [address] May, [facility] [address] [facility] [id number] [address] [place] [address] May, [facility] [address] [facility] [id number] [address] [place] [address] Apr, [facility] [address] [facility] [id number] [address] [place] [id number] Mar, [facility] [address] [facility] [id number] [address] [place] [id number] Mar, IMMUNIZATIONS No Known Immunizations SOCIAL HISTORY Never Assessed REASON FOR VISIT PLAN OF CARE VITAL SIGNS MEDICATIONS Unknown Medications RESULTS No Results PROCEDURES No Known procedures INSTRUCTIONS MEDICATIONS ADMINISTERED No Known Medications MEDICAL (GENERAL) HISTORY Type Description Date Medical History Severe spinal stenosis throu cervical spine CT and MRI done 10/2014 [...]
--- OUTSIDE RECORDS SUMMARY | 2019-06-19 05:03 | XMS REPORT ---
Author Author Sydnie HANCOCK [facility] Address [address] [place] [address] Care Team Providers Care Director Of Tax Services Name Role Phone NAHOMY HANCOCK Unavailable PROBLEMS Type Condition ICD9-CM Code UVY54-WQ Code Onset Dates Condition S tatus SNOMED Code Problem Abnormal CT scan, head R93.0 Active 886907777 Problem Bruising, spontaneous R23.3 Active 690057026 Problem Sensorineural hearing loss (SNHL) of both ears H90 .3 Active 169522124 Problem Arthralgia of hip, unspecified laterality M25.559 Active 84975743 Problem Night sweats R61 Active 8772019 0 Problem Grief F43.20 Active 36980731 Problem Hypertension I10 Active 7631005 3 Problem Major depressive disorder, recurrent episode, moderate F33.1 Active 443392349 Problem Imbalance R26.89 Active 953207798 Problem Age-related osteoporosis without current pathological fracture M81.0 Active 76565309 Problem Hormone replacement therapy Z79.890 Ac tive 144910785 Problem Ataxia R27.0 Active 25542123 Problem Bipolar 1 disorder, mixed F31.60 Acti ve 32420661 Problem Allergic rhinitis J30.9 Active 61 979934 Problem Hearing loss, unspecified laterality H91.90 Active 92221764 Problem Generalized anxiety disorder F41.1 A ctive 97818158 Problem History of colon polyps Z86.010 Active 293671557 Problem Hammer toe of right foot M20.41 Activ e 668563215 Problem Hematuria, unspecified type R31.9 Ac tive 06793940 Problem Fibromyalgia M79.7 Active 8823067 7 Problem Bladder spasm N32.89 Active 572364 006 Problem Acute left-sided low back pain with left-sided sciatica M54.42 Active 008216178 Problem Post menopausal syndrome N95.1 Activ e 870211677 Problem Hyperlipidemia, unspecified hyperlipidemia type E7 8.5 Active 38655690 Problem Sciatica of right side M54.31 Active 35069579 Problem Other chronic pain G89.29 Active 8 4729210 Problem Gastritis without bleeding, unspecified chronicity, unspecified gastritis type K29.70 Active 739773824 Problem Sciatica of left side M54.32 Active 83288787 Problem Plantar wart of right foot B07.0 Act mitchell [id number] Problem Slow transit constipation K59.01 Acti ve 96967363 Problem Tobacco use disorder F17.200 Active 320299658 ALLERGIES No Information ENCOUNTERS Encounter Location Date Diagnosis [place] [id number] [address] Apr, [place] [address] [address] Mar, [place] [address] [address] Mar, [place] [address] [address] Feb, Excessive gas R14.3 ; Other chronic pain G89.29 ; Encounter for immunization Z23 ; Hyperlipidemia, unspecified hyperlipidemia type E78.5 ; Bipolar 1 disorder, mixed F31.60 and Other fpc (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 Z79.899 [place] [address] [address] Feb, Bipolar 1 disorder, mixed F3 1.60 [place] [address] [address] Jan, Sciatica of right side M54.3 1 ; Low back pain M54.5 and Major depressive disorder, recurrent episode, moderate F33.1 [place] [address] [address] Jan, Bipolar 1 disorder, mixed F3 1.60 [place] [address] [place] [id number] [place] [address] Dec, Normal pelvic exam Z01.419 [place] [address] [place] [id number] [place] [address] Dec, Bipolar 1 disorder, mixed F3 1.60 [facility] [address] [id number] [address] [place] [address] Nov, Bipolar 1 disorder, mixed F3 1.60 [facility] [address] 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 [id number] [address] [place] [address] Nov, Bipolar 1 disorder, mixed F3 1.60 [facility] [address] [facility] [id number] [address] [place] [address] October, Bipolar 1 disorder, mixed F3 1.60 [facility] [address] [facility] [id number] [address] [place] [address] October, Bipolar 1 disorder, mixed F3 1.60 [facility] [address] [facility] [id number] [address] [place] [address] October, [facility] [address] [facility] [id number] [address] [place] [address] October, Bipolar 1 disorder, mixed F3 1.60 ; Generalized anxiety disorder F41.1 and Tobacco use disorder F17.200 [facility] [address] [facility] [id number] [address] [place] [address] Sep, [facility] [address] [facility] [id number] [address] [place] [address] Sep, Encounter for Medicare annua wellness exam Z00.00 ; Major depressive disorder, recurrent episode, moderate F33.1 ; Allergic rhinitis J30.9 ; Bipolar 1 disorder, mixed F31.60 ; Fibromyalgia M79.7 ; Hyperlipidemia, unspecified hyperlipidemia type E78.5 ; Hormone replacement therapy Z79.890 ; Encounter for screening for lung cancer Z12.2 and Tobacco use disorder F17.200 [place] [id number] [facility] [id number] [address] [place] [address] 23 Sep, 2018 Bipolar 1 disorder, mixed F3 1.60 [place] [address] [facility] [id number] [address] [place] [address] Sep, Other chronic pain G89.29 ; Hyperlipidemia, unspecified hyperlipidemia type E78.5 ; Breast cancer screening Z12.31 and Post menopausal syndrome N95.1 [place] [address] [facility] [id number] [address] [place] [address] 16 Sep, 2018 Bipolar 1 disorder, mixed F3 1.60 [place] [address] [address] [place] [id number] [address] [place] [address] Sep, Bipolar 1 disorder, mixed F3 1.60 ; Generalized anxiety disorder F41.1 and Tobacco use disorder F17.200 [place] [address] [address] [place] [id number] [address] [place] [address] Sep, Gastritis without bleeding, unspecified chronicity, unspecified gastritis type K29.70 [place] [address] [facility] [id number] [address] [place] [address] 08 Sep, 2018 Exercise counseling Z71.82 [place] [address] [address] [place] [id number] [address] [place] [address] Aug, Exercise counseling Z71.82 [place] [address] [address] [place] [id number] [address] [place] [address] Aug, Bipolar 1 disorder, mixed F3 1.60 [place] [address] [address] [place] [id number] [address] [place] [address] Aug, Exercise counseling Z71.82 [place] [address] [facility] [id number] [address] [place] [address] Aug, Bipolar 1 disorder, mixed F3 1.60 [place] [address] [address] 18 Aug, 2018 Gastritis without bleeding, unspecified chronicity, unspecified gastritis type K29.70 ; Tobacco abuse Z72.0 ; Generalized anxiety disorder F41.1 and Weight gain R63.5 [facility] [address] [address] Aug, Bipolar 1 disorder, mixed F3 1.60 ; Generalized anxiety disorder F41.1 and Tobacco use disorder F17.200 [place] [address] [address] Jul, Bipolar 1 disorder, mixed F3 1.60 [place] [address] [address] Jul, [place] [address] [address] Jul, Bipolar 1 disorder, mixed F3 1.60 [place] [address] [address] Jul, Allergic rhinitis J30.9 ; Ma darion depressive disorder, recurrent episode, moderate F33.1 and Tobacco 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 [place] [address] [address] Jun, [place] [address] [address] Jun, [place] [address] [address] Jun, Bipolar 1 disorder, mixed F3 1.60 [place] [address] [address] Jun, Bipolar 1 disorder, mixed F3 1.60 [place] [address] [address] Jun, Bipolar 1 disorder, mixed F3 1.60 [place] [address] [address] Jun, Generalized anxiety disorder F41.1 ; Tobacco abuse Z72.0 and Major depressive disorder, recurrent episode, moderate F33.1 [place] [address] [address] [place] [id number] [address] [place] [address] May, Bipolar 1 disorder, mixed F3 1.60 [place] [address] [place] [id number] [place] [address] May, Bipolar 1 disorder, mixed F3 1.60 and Generalized anxiety disorder F41.1 [place] [address] [place] [id number] [place] [address] May, Bipolar 1 disorder, mixed F3 1.60 [place] [address] [place] [id number] [place] [address] May, Allergic rhinitis J30.9 [place] [address] [address] May, Bipolar 1 disorder, mixed F3 1.60 [place] [address] [address] [place] [id number] [place] [address] May, [place] [address] [address] Apr, Allergic rhinitis J30.9 ; Dy sfunction of both eustachian tubes H69.83 ; History of bladder surgery Z98.890 and Cervicalgia M54.2 [place] [address] [address] [place] [id number] [address] [place] [address] Mar, Bipolar 1 disorder, mixed F3 1.60 [place] [address] [place] [id number] [place] [phone] Mar, [place] [address] [address] Mar, Slow transit constipation K5 9.01 ; Encounter for immunization Z23 and Generalized anxiety disorder F41.1 [place] [address] [address] [place] [id number] [address] [place] [address] 27 Feb, 2018 Bipolar 1 disorder, mixed F3 1.60 [facility] [address] [id number] [address] [place] [phone] 26 Feb, 2018 Allergic rhinitis J30.9 [facility] [address] [id number] [address] [place] [address] 24 Feb, 2018 Bipolar 1 disorder, mixed F3 1.60 [facility] [address] [id number] [address] [place] [phone] 20 Feb, 2018 Bipolar 1 disorder, mixed F3 1.60 and Generalized anxiety disorder F41.1 [facility] [address] [id number] [address] [place] [phone] 13 Feb, 2018 Bipolar 1 disorder, mixed F3 1.60 [facility] [address] [id number] [address] [place] [id number] 11 Feb, 2018 Allergic rhinitis J30.9 [facility] [address] [id number] [address] [place] [phone] 05 Feb, 2018 [facility] [address] [id number] [address] [place] [address] Jan, Bipolar 1 disorder, mixed F3 1.60 [facility] [address] [facility] [id number] [address] [place] [address] Jan, Low back pain M54.5 ; Hyperl ipidemia, unspecified hyperlipidemia type E78.5 and Bipolar 1 disorder, mixed F31.60 [facility] [address] [id number] [address] [place] [address] Jan, Bipolar 1 disorder, mixed F3 1.60 [facility] [address] [id number] [address] [place] [address] Jan, Bipolar 1 disorder, mixed F3 1.60 [facility] [address] [facility] [id number] [address] [place] [address] Jan, Bipolar 1 disorder, mixed F3 1.60 [facility] [address] [facility] [id number] [address] [place], [place] [id number] Jan, Bipolar 1 disorder, mixed F3 1.60 [facility] [address] [facility] [id number] [address] [place] [address] Dec, Bipolar 1 disorder, mixed F3 1.60 ; Generalized anxiety disorder F41.1 and Other fpc (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 Z79.899 [facility] [address] 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 [id number] [address] [place] [address] Dec, Bipolar 1 disorder, mixed F3 1.60 [facility] [address] [facility] [id number] [address] [place], [place] [address] Dec, Bipolar 1 disorder, mixed F3 1.60 [facility] [address] [facility] [id number] [address] [place] [address] Nov, Bipolar 1 disorder, mixed F3 1.60 [facility] [address] [facility] [id number] [address] [place] [address] Nov, Bipolar 1 disorder, mixed F3 1.60 [facility] [address] [facility] [id number] [address] [place] [address] Nov, Bipolar 1 disorder, mixed F3 1.60 [facility] [address] [facility] [id number] [address] [place] [address] Nov, Allergic rhinitis J30.9 [facility] [address] [facility] [id number] [address] [place] [address] Nov, Allergic rhinitis J30.9 [facility] [address] [facility] [id number] [address] [place] [address] Nov, [facility] [address] [facility] [id number] [address] [place] [address] Nov, Bipolar 1 disorder, mixed F3 1.60 [facility] [address] [address] Nov, Fibromyalgia M79.7 and Aller gic rhinitis J30.9 [facility] [address] [address] October, Bipolar 1 disorder, mixed F3 1.60 [facility] [address] [address] October, Acute nasopharyngitis J00 [facility] [address] [address] October, Bitten or stung by nonvenomo us insect and other nonvenomous arthropods, initial encounter W57.XXXA and Insect bite (nonvenomous) of abdominal wall, initial encounter S30.861A [place] [address] [address] October, Insect bite (nonvenomous) of abdominal wall, initial encounter S30.861A ; Bitten or stung by nonvenomous insect and other nonvenomous arthropods, initial encounter W57.XXXA ; Allergic rhinitis J30.9 and Low back pain M54.5 [place] [address] [address] October, Bipolar 1 disorder, mixed F3 1.60 [place] [address] [address] October, [facility] [address] [address] October, [facility] [address] [address] October, Bipolar 1 disorder, mixed F3 1.60 [facility] [address] [address] Sep, Bipolar 1 disorder, mixed F3 1.60 [place] [address] [address] Sep, Other chronic pain G89.29 [facility] [address] [facility] [id number] [address] [place] [address] Sep, [facility] [address] [facility] [id number] [address] [place], [place] [address] Sep, Bipolar 1 disorder, mixed F3 1.60 [facility] [address] [place] [id number] [address] [place] [address] Sep, Allergic rhinitis J30.9 and Sciatica of left side M54.32 [facility] [address] [facility] [id number] [address] [place] [address] Sep, Bipolar 1 disorder, mixed F3 1.60 [facility] [address] [place] [id number] [address] [place] [address] Sep, Bipolar 1 disorder, mixed F3 1.60 and Generalized anxiety disorder F41.1 [facility] [address] [facility] [id number] [address] [place] [address] Aug, [facility] [address] [facility] [id number] [address] [place] [address] Aug, Bipolar 1 disorder, mixed F3 1.60 [facility] [address] [place] [id number] [place] [address] Aug, Bipolar 1 disorder, mixed F3 1.60 [facility] [address] [place] [id number] [address] [place] [address] Aug, [facility] [address] [facility] [id number] [address] [place] [address] Aug, Generalized anxiety disorder F41.1 [facility] [address] [place] [id number] [address] [place] [address] Aug, Bipolar 1 disorder, mixed F3 1.60 [facility] [address] [place] [id number] [address] [place] [address] Aug, Plantar wart of right foot B 07.0 [facility] [address] [facility] [id number] [address] [place] [address] Aug, Bipolar 1 disorder, mixed F3 1.60 [facility] [address] [place] [id number] [address] [place] [address] Jul, Bipolar 1 disorder, mixed F3 1.60 [facility] [address] [place] [id number] [address] [place] [address] Jul, [facility] [address] [place] [id number] [address] [place] [address] 14 Jul, 2017 Bipolar 1 disorder, mixed F3 1.60 [facility] [address] [place] [id number] [place] [address] 09 Jul, 2017 Generalized anxiety disorder F41.1 [facility] [address] [place] [id number] [address] [place] [address] 07 Jul, 2017 Bipolar 1 disorder, mixed F3 1.60 [facility] [address] [place] [id number] [address] [place] [address] 07 Jul, 2017 Acute left-sided low back pa in with left-sided sciatica M54.42 [facility] [address] [place] [id number] [address] [place] [address] 05 Jul, 2017 Coccydynia M53.3 [facility] [address] [place] [id number] [address] [place] [address] Jun, Bipolar 1 disorder, mixed F3 1.60 [facility] [address] [facility] [id number] [address] [place] [address] Jun, Acute nasopharyngitis J00 [facility] [address] [place] [id number] [address] [place] [address] Jun, Bipolar 1 disorder, mixed F3 1.60 [facility] [address] [place] [id number] [address] [place] [address] Jun, Fibromyalgia M79.7 [facility] [address] [address] [address] Jun, Bipolar 1 disorder, mixed F3 1.60 [place] [address] [address] Jun, Fibromyalgia M79.7 and Bipol ar 1 disorder, mixed F31.60 [place] [address] [address] May, Bipolar 1 disorder, mixed F3 1.60 ; Generalized anxiety disorder F41.1 and Other fpc (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 Z79.899 [place] [address] [address] May, Bipolar 1 disorder, mixed F3 1.60 [facility] [address] [address] May, Cough R05 and Body aches R52 [facility] [address] [address] May, Bladder spasm N32.89 and Acu te cystitis without hematuria N30.00 [place] [address] [address] May, Bipolar 1 disorder, mixed F3 1.60 [place] [address] [address] Apr, [place] [address] [address] Apr, Major depressive disorder, r ecurrent episode, moderate F33.1 and Encounter for immunization Z23 [place] [address] [address] Apr, Bipolar 1 disorder, mixed F3 1.60 [place] [address] [address] Apr, Bipolar 1 disorder, mixed F3 1.60 [place] [address] [address] Apr, Bipolar 1 disorder, mixed F3 1.60 [facility] [address] [place] [id number] [address] [place] [address] Apr, Yeast vaginitis B37.3 [facility] [address] [place] [id number] [place] [address] Apr, Bipolar 1 disorder, mixed F3 1.60 [facility] [address] [place] [id number] [place] [address] Apr, Cellulitis L03.[address] for immunization Z23 [facility] [address] Apr, Bipolar 1 disorder, mixed F3 1.60 [facility] [address] [place] [id number] [place] [address] Mar, Bipolar 1 disorder, mixed F3 1.60 [place] [address] [address] Mar, Bipolar 1 disorder, mixed F3 1.60 [facility] [address] [address] Mar, Imbalance R26.89 [address] for immunization Z23 [facility] [address] [place] [id number] [place] [address] Mar, Generalized anxiety disorder F41.1 [facility] [address] [place] [id number] [place] [address] Mar, Bipolar 1 disorder, mixed F3 1.60 [facility] [address] [place] [id number] [place] [address] Mar, Generalized anxiety disorder F41.1 [facility] [address] [place] [id number] [place] [address] Mar, Bipolar 1 disorder, mixed F3 1.60 [facility] [address] [place] [id number] [place] [address] Mar, Bipolar 1 disorder, mixed F3 1.60 [place] [address] [place] [id number] [place] [address] Feb, Bipolar 1 disorder, mixed F3 1.60 [place] [address] [place] [id number] [place] [address] Feb, Bipolar 1 disorder, mixed F3 1.60 and Generalized anxiety disorder F41.1 [place] [address] [phone] Feb, Gastritis without bleeding, unspecified chronicity, unspecified gastritis type K29.70 ; Hammer toe of right foot M20.41 and Other viral warts B07.8 [place] [address] [address] [place] [id number] [place] [id number] Feb, Bipolar 1 disorder, mixed F3 1.60 [place] [address] [phone] Feb, Bipolar 1 disorder, mixed F3 1.60 [place] [address] [address] [place] [id number] [address] [place] [phone] Feb, Bipolar 1 disorder, mixed F3 1.60 [place] [address] [phone] Jan, Encounter for screening mamm ogram for breast cancer Z12.31 ; Other viral warts B07.8 and Allergic rhinitis J30.9 [place] [address] [address] [place] [id number] [address] [place] [id number] Jan, Bipolar 1 disorder, mixed F3 1.60 [place] [address] [address] [place] [id number] [address] [place] [phone] Jan, Bipolar 1 disorder, mixed F3 1.60 [place] [address] [address] [place] [id number] [place] [phone] Jan, [place] [address] [address] [place] [id number] [address] [place] [phone] Jan, Bipolar 1 disorder, mixed F3 1.60 [place] [id number] [place] [id number] [address] [place] [phone] Jan, Bipolar 1 disorder, mixed F3 1.60 [place] [address] [address] [place] [id number] [address] [place] [phone] Jan, Allergic rhinitis J30.9 ; He maturia R31.9 and Colon cancer screening Z12.11 [place] [address] [phone] Dec, Bipolar 1 disorder, mixed F3 1.60 [place] [address] [phone] Dec, Bipolar 1 disorder, mixed F3 1.60 ; Generalized anxiety disorder F41.1 and 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 [place] [address] [address] Dec, Bipolar 1 disorder, mixed F3 1.60 [place] [address] [id number] Dec, Bipolar 1 disorder, mixed F3 1.60 [place] [address] [phone] Dec, Bipolar 1 disorder, mixed F3 1.60 [place] [address] [address] Dec, Low back pain M54.5 and Recu rrent urinary tract infection N39.0 [place] [address] [address] [place] [id number] [place] [phone] Nov, Bipolar 1 disorder, mixed F3 1.60 [place] [address] [place] [id number] [address] [place] [address] Nov, Bipolar 1 disorder, mixed F3 1.60 [place] [address] [address] Nov, Bipolar 1 disorder, mixed F3 1.60 [facility] [address] [facility] [id number] [address] [place] [address] Nov, Bipolar 1 disorder, mixed F3 1.60 [facility] [address] [place] [id number] [address] [place] [phone] Nov, [place] [address] [place] [id number] [place] [address] Nov, Anesthesia of skin R20.0 ; F requent UTI N39.0 ; Tobacco abuse Z72.0 and Colon cancer screening Z12.11 [place] [address] [place] [id number] [address] [place] [address] Nov, Bipolar 1 disorder, mixed F3 1.60 [place] [address] [place] [id number] [place] [address] October, Bipolar 1 disorder, mixed F3 1.60 [place] [address] [address] October, Bipolar 1 disorder, mixed F3 1.60 [place] [address] [address] October, Bipolar 1 disorder, mixed F3 1.60 [place] [address] [place] [id number] [place] [address] October, Bipolar 1 disorder, mixed F3 1.60 [place] [address] [place] [id number] [address] [place] [address] October, Bipolar 1 disorder, mixed F3 1.60 [place] [address] [place] [id number] [address] [place] [address] October, Cervicalgia M54.2 and Bipola r 1 disorder, mixed F31.60 [place] [address] [place] [id number] [address] [place] [address] October, Hypertension I10 ; Hyperlipi demia, unspecified hyperlipidemia type E78.5 and Family history of thyroid disease Z83.49 [facility] [facility] [address] [address] October, [place] [address] [place] [address] October, Hypertension I10 ; Hyperlipi demia, unspecified hyperlipidemia type E78.5 and Family history of thyroid problem Z83.49 [facility] [address] [address] October, Bipolar 1 disorder, mixed F3 1.60 [place] [address] [address] Sep, Bipolar 1 disorder, mixed F3 1.60 [place] [address] [address] Sep, Bipolar 1 disorder, mixed F3 1.60 [place] [address] [address] Sep, Bipolar 1 disorder, mixed F3 1.60 [place] [address] [address] Sep, History of colon polyps Z86. 010 and Hematochezia K92.1 [facility] [address] [address] Sep, Major depressive disorder, r ecurrent episode, moderate F33.1 [facility] [address] [place] [id number] [address] [place] [address] Sep, Bipolar 1 disorder, mixed F3 1.60 [facility] [address] [address] Aug, Hot flashes due to menopause N95.1 [place] [address] [address] [place] [id number] [address] [place] [address] Aug, Bipolar 1 disorder, mixed F3 1.60 [place] [facility] [address] [address] Aug, [facility] [address] [address] Aug, Bipolar 1 disorder, mixed F3 1.60 [place] [address] [place] [address] Aug, Bipolar 1 disorder, mixed F3 1.60 [place] [address] [place] [address] Aug, Hot flashes due to menopause N95.1 ; Cervicalgia M54.2 and Ataxia R27.0 [place] [address] [place] [address] Jul, Bipolar 1 disorder, mixed F3 1.60 [place] [address] [address] Jul, Bipolar 1 disorder, mixed F3 1.60 [place] [address] [address] Jul, Bipolar 1 disorder, mixed F3 1.60 [place] [address] [address] Jul, Bipolar 1 disorder, mixed F3 1.60 [facility] [address] [address] Jul, Bipolar 1 disorder, mixed F3 1.60 [place] [address] [address] Jul, Cervicalgia M54.2 ; Tremor R 25.1 ; Hearing abnormally acute, unspecified laterality H93.239 ; Alopecia L65.9 ; Encounter for immunization Z23 and Family history of thyroid disease Z83.49 [facility] [address] [address] Jul, Bipolar 1 disorder, mixed F3 1.60 [place] [address] [place] [address] Jun, [facility] [address] [facility] [id number] [address] [place] [address] Jun, Hearing disorder, unspecifie d laterality H93.299 [facility] [address] [id number] [address] [place] [address] Jun, Bipolar 1 disorder, mixed F3 1.60 [facility] [address] [facility] [id number] [address] [place], [place] [address] Jun, Bipolar 1 disorder, mixed F3 1.60 [facility] [address] [facility] [id number] [address] [place] [address] Jun, Allergic rhinitis J30.9 [facility] [address] [facility] [id number] [address] [place] [address] Jun, Bipolar 1 disorder, mixed F3 1.60 [facility] [address] [facility] [id number] [address] [place] [address] Jun, Bipolar 1 disorder, mixed F3 1.60 [facility] [address] [facility] [id number] [address] [place] [address] Jun, Allergic rhinitis J30.9 [facility] [address] [facility] [id number] [address] [place] [address] Jun, Allergic rhinitis J30.9 [facility] [address] [facility] [id number] [address] [place] [address] Jun, Bipolar 1 disorder, mixed F3 1.60 [facility] [address] [facility] [id number] [address] [place] [address] May, Bipolar 1 disorder, mixed F3 1.60 [facility] [address] [facility] [id number] [address] [place] [address] May, Bipolar 1 disorder, mixed F3 1.60 [facility] [address] [facility] [id number] [address] [place] [address] May, [facility] [address] [place] [id number] [place] [address] May, Bipolar 1 disorder, mixed F3 1.60 [facility] [address] [address] May, Bipolar 1 disorder, mixed F3 1.60 [facility] [address] [place] [id number] [place] [address] May, [facility] [address] [address] May, [facility] [address] [address] May, [facility] [address] [address] May, Abdominal pain, unspecified location R10.9 [facility] [address] [address] May, [facility] [address] [address] Apr, Hematuria R31.9 ; Ataxia R27 .0 and Hearing loss, unspecified laterality H91.90 [facility] [address] [address] Apr, Bipolar 1 disorder, mixed F3 1.60 [facility] [address] [place] [id number] [place] [address] Apr, Acute effusion of both middl e ears H65.193 [facility] [address] [place] [id number] [address] [place] [address] Apr, Hematuria R31.9 and Pyelonep hritis N12 [facility] [address] [place] [id number] [place] [address] Apr, [facility] [address] [address] Mar, Bipolar 1 disorder, mixed F3 1.60 [place] [address] [place] [id number] [address] [place] [address] Mar, [place] [address] [place] [address] Mar, Bipolar 1 disorder, mixed F3 1.60 [place] [address] [place] [id number] [address] [place] [address] Mar, Bipolar 1 disorder, mixed F3 1.60 [place] [address] [address] Mar, Encounter for immunization Z 23 and Gastritis without bleeding, unspecified chronicity, unspecified gastritis type K29.70 [place] [address] [place] [id number] [address] [place] [address] Mar, Bipolar 1 disorder, mixed F3 1.60 and Grief F43.20 [place] [address] [place] [id number] [address] [place] [address] Mar, Gastritis without bleeding, unspecified chronicity, unspecified gastritis type K29.70 [place] [address] [place] [id number] [address] [place] [address] Mar, Bipolar 1 disorder, mixed F3 1.60 [place] [address] [place] [id number] [address] [place] [address] Mar, Gastritis without bleeding, unspecified chronicity, unspecified gastritis type K29.70 [place] [address] [place] [id number] [address] [place] [address] Mar, [place] [address] [place] [id number] [address] [place] [phone] Feb, Bipolar 1 disorder, mixed F3 1.60 [place] [address] [place] [id number] [address] [place] [address] Feb, Bipolar 1 disorder, mixed F3 1.60 and Grief F43.20 [place] [address] [place] [id number] [address] [place] [address] Feb, Gastritis without bleeding, unspecified chronicity, unspecified gastritis type K29.70 [facility] [address] [facility] [id number] [address] [place] [id number] 14 Feb, 2016 Bipolar 1 disorder, mixed F3 1.60 [facility] [address] [facility] [id number] [address] [place] [address] 09 Feb, 2016 Gastroesophageal reflux dise ase, esophagitis presence not specified K21.9 [facility] [address] [place] [id number] [address] [place] [address] Jan, Bipolar 1 disorder, mixed F3 1.60 [facility] [address] [place] [id number] [address] [place] [id number] Jan, Bipolar 1 disorder, mixed F3 1.60 and Unsteady gait R26.81 [place] [address] [place] [id number] [address] [place] [address] Jan, Bipolar 1 disorder, mixed F3 1.60 [facility] [address] [place] [id number] [address] [place] [address] Jan, Bipolar 1 disorder, mixed F3 1.60 and Other fpc (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 Z79.899 [place] [address] [place] [id number] [address] [place] [address] Jan, Bipolar 1 disorder, mixed F3 1.60 [facility] [address] [place] [id number] [place] [address] Jan, Bipolar 1 disorder, mixed F3 1.60 [place] [address] [place] [id number] [address] [place] [address] Jan, Bipolar 1 disorder, mixed F3 1.60 ; Grief F43.20 and Other fpc (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 Z79.899 [place] [address] [facility] [id number] [address] [place] [address] Jan, Bipolar 1 disorder, mixed F3 1.60 [facility] [address] [place] [id number] [address] [place], [place] [id number] Dec, [facility] [address] [place] [address] Dec, Bipolar 1 disorder, mixed F3 1.60 ; Vitamin D deficiency, unspecified E55.9 ; H/O allergic rhinitis Z87.09 ; Other chronic pain G89.29 and Dorsalgia, unspecified M54.9 [facility] [address] [place] [id number] [place] [address] Dec, [facility] [address] [place] [id number] [address] [place] [address] Dec, Bipolar 1 disorder, mixed F3 1.60 [place] [address] [address] Dec, Major depressive disorder, r ecurrent episode, moderate F33.1 [place] [address] [address] Dec, Major depressive disorder, r ecurrent episode, moderate F33.1 [facility] [address] [place] [id number] [address] [place] [address] Nov, [place] [address] [address] Nov, Bipolar 1 disorder, mixed F3 1.60 [place] [address] [place] [id number] [address] [place] [address] Nov, Major depressive disorder, r ecurrent episode, moderate F33.1 [place] [address] [place] [id number] [address] [place] [address] Nov, Cervicalgia M54.2 ; Arthralg ia of hip, unspecified laterality M25.559 ; Allergic rhinitis J30.9 and Hormone replacement therapy Z79.890 [facility] [address] [place] [id number] [address] [place] [address] Nov, Other seasonal allergic rhin itis J30.2 [facility] [address] [place] [id number] [address] [place] [address] October, Major depressive disorder, r ecurrent episode, moderate F33.1 [place] [address] [facility] [id number] [address] [place] [address] October, Major depressive disorder, r ecurrent episode, moderate F33.1 and Arthralgia of hip, unspecified laterality M25.559 [place] [address] [place] [address] October, Grief F43.20 ; Hypertension I10 ; Hyperlipidemia, unspecified hyperlipidemia type E78.5 ; Other chronic pain G89.29 and Allergic rhinitis, unspecified allergic rhinitis type J30.9 [place] [address] [place] [id number] [address] [place] [address] October, Major depressive disorder, r ecurrent episode, moderate F33.1 [place] [address] [place] [id number] [address] [place] [address] Sep, Major depressive disorder, r ecurrent episode, moderate F33.1 [place] [address] [facility] [id number] [address] [place] [address] Sep, [place] [address] [place] [id number] [address] [place] [address] Sep, Major depressive disorder, r ecurrent episode, moderate F33.1 [place] [address] [place] [id number] [address] [place] [address] Sep, Grief F43.20 [place] [address] [place] [id number] [address] [place] [address] Aug, Major depressive disorder, r ecurrent episode, moderate F33.1 [place] [address] [place] [id number] [address] [place] [address] Aug, Bipolar 1 disorder, mixed F3 1.60 [place] [address] [place] [id number] [address] [place] [address] Aug, Allergic rhinitis J30.9 ; Ce rvicalgia M54.2 and Low back pain M54.5 [facility] [address] [facility] [id number] [address] [place] [address] Aug, Major depressive disorder, r ecurrent episode, moderate F33.1 [facility] [address] [facility] [id number] [address] [place] [address] Aug, Sinusitis J32.9 and Tobacco 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 [facility] [address] [place] [address] Aug, [facility] [address] [address] Aug, Depressive disorder, not els ewhere classified F32.9 ; Hormone replacement therapy Z79.[address] scan, head R93.0 [place] [address] [address] Aug, Major depressive disorder, r ecurrent episode, moderate F33.1 [facility] [address] [place] [address] Jul, Major depressive disorder, r ecurrent episode, moderate F33.1 [facility] [address] [place] [id number] [address] [place] [address] Jul, Abdominal pain R10.9 and Hyp ertension I10 [facility] [address] [place] [id number] [address] [place] [address] Jul, [facility] [address] [place] [id number] [address] [place] [address] Jul, Major depressive disorder, r ecurrent episode, moderate F33.1 [facility] [address] [place] [id number] [place] [address] Jul, [facility] [address] [place] [id number] [address] [place] [address] Jul, [facility] [address] [id number] [address] [place] [address] Jun, [facility] [address] [id number] [address] [place] [address] Jun, Depressive disorder, not els ewhere classified F32.9 [facility] [address] [id number] [address] [place] [address] Jun, [facility] [address] [id number] [address] [place] [address] Jun, [facility] [address] [id number] [address] [place] [address] Jun, Arthralgia of hip, unspecifi ed laterality M25.559 ; Bruising, spontaneous R23.3 and Night sweats R61 [facility] [address] [id number] [address] [place] [address] Jun, [facility] [address] [id number] [address] [place] [address] Jun, [facility] [address] [id number] [address] [place] [address] May, [facility] [address] [facility] [id number] [address] [place] [address] May, Myalgia M79.1 and Screening, lipid Z13.220 [facility] [address] [id number] [address] [place] [address] Apr, Status post cervical spinal fusion Z98.1 ; Fibromyalgia M79.7 and Unsteady gait R26.81 [facility] [address] [id number] [address] [place] [address] Nov, [facility] [address] [id number] [address] [place] [address] Nov, [facility] [address] [id number] [address] [place] [address] October, [facility] [address] [facility] [id number] [address] [place] [address] October, [facility] [address] [id number] [address] [place] [address] October, [facility] [address] [id number] [address] [place] [address] October, [facility] [address] [id number] [address] [place] [address] October, [facility] [address] [id number] [address] [place] [address] October, Dysuria 788.1 ; Nausea 787.0 2 and Urinary tract infection 599.0 [facility] [address] [id number] [address] [place] [address] Sep, [facility] [address] [id number] [address] [place] [address] Sep, [facility] [address] [id number] [address] [place] [address] Aug, [facility] [address] [id number] [address] [place] [phone] Aug, [facility] [address] [id number] [address] [place] [address] Aug, [facility] [address] [id number] [address] [place] [address] Aug, [facility] [address] [id number] [address] [place] [address] Aug, [facility] [address] [id number] [address] [place] [address] Aug, [facility] [address] [id number] [address] [place] [phone] Aug, [facility] [address] [id number] [address] [place] [id number] Aug, [facility] [address] [id number] [facility] [place] [address] 19 Aug, 2014 [facility] [address] [id number] [address] [place] [address], [place] [id number] 18 Aug, 2014 [facility] [address] [id number] [address] [place] [address], [place] [address] 18 Aug, 2014 [facility] [address] [id number] [address] [place] [address], [place] [address] 13 Aug, 2014 [facility] [address] [id number] [address] [place] [address], [place] [id number] 13 Aug, 2014 [facility] [address] [id number] [address] [place] [address], [place] [address] 11 Aug, 2014 [facility] [address] [id number] [address] [place] [address], [place] [address] 11 Aug, 2014 [facility] [address] [id number] [address] [place] [address], [place] [id number] 06 Aug, 2014 [facility] [address] [id number] [address] [place] [address], [place] [id number] 06 Aug, 2014 [facility] [address] [id number] [address] [place] [address], [place] [id number] 05 Aug, 2014 [facility] [address] [id number] [address] [place] [address], [place] [id number] 05 Aug, 2014 [facility] [address] [id number] [address] [place] [address], [place] [id number] 04 Aug, 2014 [facility] [address] [id number] [address] [place] [address], [place] [id number] Aug, [facility] [address] [id number] [address] [place] [address], [place] [id number] Aug, [facility] [address] [id number] [address] [place] [address], [place] [id number] Jul, [facility] [address] [id number] [address] [place] [address], [place] [id number] Jul, [facility] [address] [id number] [address] [place] [address], [place] [id number] Jul, [facility] [address] [id number] [address] [place] [address], [place] [id number] Jul, [facility] [address] [id number] [address] [place] [address], [place] [id number] Jul, 2014 [facility] [address] [id number] [address] [place] [address], [place] [id number] Jul, 2014 [facility] [address] [id number] [address] [place] [address], [place] [id number] Jul, [facility] [address] [id number] [address] [place] [address], [place] [id number] Jul, 2014 [facility] [address] [id number] [address] [place] [address], [place] [id number] Jul, [facility] [address] [id number] [address] [place] [address], [place] [id number] Jul, [facility] [address] [id number] [address] [place] [address], [place] [id number] Jul, [facility] [address] [id number] [address] [place] [address], [place] [id number] Jul, [facility] [address] [id number] [address] [place] [address], [place] [id number] Jul, [facility] [address] [id number] [address] [place] [id number] Jul, [facility] [address] [id number] [address] [place] [id number] Jun, [facility] [address] [id number] [address] [place] [id number] Jun, [facility] [address] [id number] [address] [place] [id number] Jun, [facility] [address] [id number] [address] [place] [address], [place] [id number] Jun, [facility] [address] [id number] [address] [place] [address], [place] [id number] Jun, [facility] [address] [id number] [address] [place] [address], [place] [id number] Jun, [facility] [address] [id number] [address] [place] [address], [place] [id number] May, [facility] [address] [id number] [address] [place] [address], [place] [id number] May, [facility] [address] [id number] [address] [place] [address], [place] [id number] May, [facility] [address] [id number] [address] [place] [address], [place] [id number] May, [facility] [address] [id number] [address] [place] [address], [place] [id number] May, [facility] [address] [id number] [address] [place] [address], [place] [id number] May, [facility] [address] [id number] [address] [place] [address], [place] [address] Apr, [facility] [address] [id number] [address] [place] [address], [place] [address] Apr, [facility] [address] [id number] [address] [place] [address], [place] [address] Apr, [facility] [address] [id number] [address] [place] [address], [place] [address] Apr, [facility] [address] [id number] [address] [place] [address], [place] [address] Apr, [facility] [address] [id number] [address] [place] [address], [place] [address] Apr, [facility] [address] [id number] [address] [address] Mar, [facility] [address] [id number] [address] [place] [address], [place] [address] Mar, [facility] [address] [id number] [address] [place] [address], [place] [address] Mar, [facility] [address] [id number] [address] [place] [address], [place] [address] Mar, 2013 [facility] [address] [id number] [address] [place] [id number] Mar, 2013 [facility] [address] [id number] [address] [place] [address], [place] [address] Mar, [facility] [address] [id number] [address] [place] [id number] Mar, 2013 [facility] [address] [id number] [address] [place] [address], [place] [address] Mar, 2013 [facility] [address] [id number] [address] [place] [id number] Mar, [facility] [address] [id number] [address] [place] [id number] Mar, [facility] [address] [id number] [address] [place] [id number] Mar, [facility] [address] [id number] [address] [place] [id number] Mar, [facility] [address] [id number] [address] [place] [id number] 30 Feb, 2013 [facility] [address] [id number] [address] [place] [address], [place] [address] 29 Feb, 2013 [facility] [address] [id number] [address] [place] [address], [place] [address] 29 Feb, 2013 [facility] [address] [id number] [address] [place] [address], [place] [address] 23 Feb, 2013 [facility] [address] [id number] [facility] [place] [address] Feb, [facility] [address] [id number] [address] [place] [address], [place] [address] Feb, [facility] [address] [id number] [address] [place] [address], [place] [address] Feb, [facility] [address] [id number] [address] [place] [address], [place] [address] Jan, [facility] [address] [id number] [address] [place] [address], [place] [address] Jan, [facility] [address] [id number] [address] [place] [address], [place] [address] Jan, [facility] [address] [id number] [address] [place] [address], [place] [address] Dec, [facility] [address] [id number] [address] [place] [address], [place] [address] Dec, [facility] [address] [id number] [address] [place] [address], [place] [address] Dec, [facility] [address] [id number] [address] [place] [address], [place] [address] Dec, [facility] [address] [id number] [address] [place] [address], [place] [address] Sep, [facility] [address] [id number] [address] [place] [address], [place] [address] Sep, [facility] [address] [id number] [address] [place] [address], [place] [address] Sep, [facility] [address] [id number] [address] [place] [address], [place] [address] Sep, [facility] [address] [id number] [address] [place] [address], [place] [address] Sep, [facility] [address] [id number] [address] [place] [address], [place] [address] Sep, [facility] [address] [id number] [address] [place] [address], [place] [address] Sep, [facility] [address] [id number] [address] [place] [address], [place] [address] Sep, [facility] [address] [id number] [address] [place] [address], [place] [address] Aug, [facility] [address] [id number] [address] [place] [address], [place] [address] Aug, [facility] [address] [id number] [address] [place] [address], [place] [address] May, [facility] [address] [id number] [address] [place] [address], [place] [address] May, [facility] [address] [id number] [address] [place] [address], [place] [address] Apr, [facility] [address] [id number] [address] [place] [address], [place] [address] Apr, [facility] [address] [id number] [address] [place] [address], [place] [address] Apr, [facility] [address] [id number] [address] [place] [address], [place] [address] Apr, [facility] [address] [id number] [address] [place] [address], [place] [address] Apr, [facility] [address] [id number] [address] [place] [id number] Apr, [facility] [address] [id number] [address] [place] [address], [place] [address] May, [facility] [address] [id number] [address] [place] [address], [place] [address] May, [facility] [address] [id number] [address] [place] [address], [place] [address] May, [facility] [address] [id number] [address] [place] [id number] 15 May, 2012 [facility] [address] [id number] [address] [place] [address], [place] [address] 13 May, 2012 [facility] [address] [id number] [address] [place] [address], [place] [address] 13 May, 2012 [facility] [address] [id number] [address] [place] [address], [place] [address] 13 Apr, 2012 [facility] [address] [id number] [address] [place] [address], [place] [address] 13 Apr, 2012 [facility] [address] [id number] [address] [place] [address], [place] [address] 08 Apr, 2012 [facility] [address] [id number] [address] [place] [address], [place] [address] 08 Apr, 2012 [facility] [address] [id number] [address] [place] [address], [place] [address] 08 Apr, 2012 [facility] [address] [id number] [address] [place] [address], [place] [address] Apr, [facility] [address] [id number] [address] [place] [address], [place] [address] Apr, [facility] [address] [id number] [address] [place] [address], [place] [address] Apr, [facility] [address] [id number] [address] [place] [id number] Apr, [facility] [address] [id number] [address] [place] [id number] Apr, [facility] [address] [id number] [address] [place] [id number] Mar, [facility] [address] [id number] [address] [place] [address], [place] [address] Mar, [facility] [address] [id number] [address] [place] [address], [place] [address] Mar, [facility] [address] [id number] [address] [place] [address], [place] [address] Mar, [facility] [address] [id number] [address] [place] [address], [place] [address] Mar, [facility] [address] [id number] [address] [place] [address], [place] [address] Mar, [facility] [address] [id number] [address] [place] [address], [place] [address] Mar, [facility] [address] [id number] [address] [place] [address], [place] [address] Mar, [facility] [address] [id number] [address] [place] [address], [place] [address] Mar, [facility] [address] [id number] [address] [place] [address], [place] [address] Feb, [facility] [address] [id number] [address] [place] [address], [place] [address] 16 Feb, 2012 [facility] [address] [id number] [address] [place] [address], [place] [address] Feb, [facility] [address] [id number] [address] [place] [address], [place] [address] Jan, [facility] [address] [id number] [address] [place] [address], [place] [address] Jan, [facility] [address] [id number] [address] [place] [address], [place] [address] Jan, [facility] [address] [id number] [address] [place] [address], [place] [address] Jan, [facility] [address] [id number] [address] [place] [address], [place] [address] Jan, [facility] [address] [id number] [address] [place] [address], [place] [address] Jan, [facility] [address] [id number] [address] [place] [address], [place] [address] Jan, [facility] [address] [id number] [facility] [place] [address] Jan, [facility] [address] [id number] [address] [place] [address], [place] [address] Jan, [facility] [address] [id number] [address] [place] [address], [place] [address] Jan, [facility] [address] [id number] [address] [place] [address], [place] [address] Dec, [facility] [address] [id number] [address] [place] [address], [place] [address] Dec, [facility] [address] [id number] [address] [place] [address], [place] [address] Dec, [facility] [address] [id number] [address] [place] [address], [place] [address] Dec, [facility] [address] [id number] [address] [place] [address], [place] [address] Nov, [facility] [address] [id number] [address] [place] [address], [place] [address] Nov, [facility] [address] [id number] [address] [place] [address], [place] [address] Nov, [facility] [address] [id number] [address] [place] [address], [place] [address] October, [facility] [address] [id number] [address] [place] [address], [place] [address] October, [facility] [address] [id number] [address] [place] [address], [place] [address] October, [facility] [address] [id number] [address] [place] [address], [place] [address] October, [facility] [address] [id number] [address] [place] [address], [place] [address] October, [facility] [address] [id number] [address] [place] [id number] October, [facility] [address] [id number] [address] [place] [id number] Aug, [facility] [address] [id number] [address] [place] [id number] Mar, [facility] [address] [facility] [id number] [address] [place] [id number] Nov, [facility] [address] [facility] [id number] [address] [place] [id number] May, [facility] [address] [facility] [id number] [address] [place] [id number] May, [facility] [address] [facility] [id number] [address] [place] [id number] Apr, [facility] [address] [facility] [id number] [address] [place] [id number] Mar, [facility] [address] [facility] [id number] [address] [place] [id number] Mar, IMMUNIZATIONS No Known Immunizations SOCIAL HISTORY [...]
--- OUTSIDE RECORDS SUMMARY | 2019-06-19 05:03 | XMS REPORT ---
Author Author Sydnie Huston Doctor Organization [facility] [address] Address Unknown Phone Unavailable Care Team Providers Care Motor Checker Name Role Phone Migration, Doctor Unavailable Unavailable PROBLEMS Type Condition ICD9-CM Code DTU76-LO Code Onset Dates Condition S tatus SNOMED Code Problem Abnormal CT scan, head R93.0 Active 983861941 Problem Bruising, spontaneous R23.3 Active 332417856 Problem Sensorineural hearing loss (SNHL) of both ears H90 .3 Active 311950038 Problem Arthralgia of hip, unspecified laterality M25.559 Active 97274685 Problem Night sweats R61 Active 8835327 0 Problem Grief F43.20 Active 31233934 Problem Hypertension I10 Active 8864531 3 Problem Major depressive disorder, recurrent episode, moderate F33.1 Active 313274457 Problem Imbalance R26.89 Active 617778033 Problem Age-related osteoporosis without current pathological fracture M81.0 Active 80660970 Problem Hormone replacement therapy Z79.890 Ac tive 715261527 Problem Ataxia R27.0 Active 30237995 Problem Bipolar 1 disorder, mixed F31.60 Acti ve 93914517 Problem Allergic rhinitis J30.9 Active 61 752144 Problem Hearing loss, unspecified laterality H91.90 Active 75716305 Problem Generalized anxiety disorder F41.1 A ctive 96728564 Problem History of colon polyps Z86.010 Active 270412683 Problem Hammer toe of right foot M20.41 Activ e 423127855 Problem Hematuria, unspecified type R31.9 Ac tive 35140482 Problem Fibromyalgia M79.7 Active 4123235 7 Problem Bladder spasm N32.89 Active 355350 006 Problem Acute left-sided low back pain with left-sided sciatica M54.42 Active 608801574 Problem Post menopausal syndrome N95.1 Activ e 554472833 Problem Hyperlipidemia, unspecified hyperlipidemia type E7 8.5 Active 71307012 Problem Sciatica of right side M54.31 Active 61293862 Problem Other chronic pain G89.29 Active 8 6899991 Problem Gastritis without bleeding, unspecified chronicity, unspecified gastritis type K29.70 Active 978783636 Problem Sciatica of left side M54.32 Active 61454161 Problem Plantar wart of right foot B07.0 Act mitchell [id number] Problem Slow transit constipation K59.01 Acti ve 22676004 Problem Tobacco use disorder F17.200 Active 898472690 ALLERGIES No Information ENCOUNTERS Encounter Location Date Diagnosis [facility] [id number] [place] [address] Mar, [facility] [address] [facility] [id number] [address] [place] [address] Feb, [facility] [address] [address] Feb, [facility] [id number] [place] [address] Feb, [facility] [address] [address] Feb, Bipolar 1 disorder, mixed F3 1.60 [place] [id number] [place] [address] Jan, Sciatica of right side M54.3 1 ; Low back pain M54.5 and Major depressive disorder, recurrent episode, moderate F33.1 [place] [address] [id number] [place] [address] Jan, Bipolar 1 disorder, mixed F3 1.60 [facility] [id number] [place] [address] Dec, Normal pelvic exam Z01.419 [place] [address] [id number] [place] [address] Dec, Bipolar 1 disorder, mixed F3 1.60 [place] [address] [id number] [place] [address] Nov, Bipolar 1 disorder, mixed F3 1.60 [place] [id number] [place] [address], [place] [address] Nov, Bipolar 1 disorder, mixed F3 1.60 ; Generalized anxiety disorder F41.1 ; Tobacco use disorder F17.200 and Other snf (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 Z79.899 [facility] [id number] [place] [address] Nov, [facility] [address] [address] Nov, Bipolar 1 disorder, mixed F3 1.60 [facility] [id number] [place] [address] October, Bipolar 1 disorder, mixed F3 1.60 [place] [address] [address] October, Bipolar 1 disorder, mixed F3 1.60 [place] [address] [address] October, [facility] [address] [address] October, Bipolar 1 disorder, mixed F3 1.60 ; Generalized anxiety disorder F41.1 and Tobacco use disorder F17.200 [place] [address] [place] [id number] [place] [address] Sep, [place] [address] [address] Sep, Encounter [facility] Z00.00 ; Major depressive disorder, recurrent episode, moderate F33.1 ; Allergic rhinitis J30.9 ; Bipolar 1 disorder, mixed F31.60 ; Fibromyalgia M79.7 ; Hyperlipidemia, unspecified hyperlipidemia type E78.5 ; Hormone replacement therapy Z79.890 ; Encounter for screening for lung cancer Z12.2 and Tobacco use disorder F17.200 [facility] [id number] [place] [address] Sep, Bipolar 1 disorder, mixed F3 1.60 [facility] [address] [address] Sep, Other chronic pain G89.29 ; Hyperlipidemia, unspecified hyperlipidemia type E78.5 ; Breast cancer screening Z12.31 and Post menopausal syndrome N95.1 [place] [address] [address] Sep, Bipolar 1 disorder, mixed F3 1.60 [place] [address] [address] Sep, Bipolar 1 disorder, mixed F3 1.60 ; Generalized anxiety disorder F41.1 and Tobacco use disorder F17.200 [place] [address] [address] Sep, Gastritis without bleeding, unspecified chronicity, unspecified gastritis type K29.70 [place] [address] [address] Sep, Exercise counseling Z71.82 [place] [address] [address] Aug, Exercise counseling Z71.82 [place] [address] [address] Aug, Bipolar 1 disorder, mixed F3 1.60 [place] [address] [address] Aug, Exercise counseling Z71.82 [place] [address] [address] Aug, Bipolar 1 disorder, mixed F3 1.60 [place] [address] [address] Aug, Gastritis without bleeding, unspecified chronicity, unspecified gastritis type K29.70 ; Tobacco abuse Z72.0 ; Generalized anxiety disorder F41.1 and Weight gain R63.5 [place] [address] [address] Aug, Bipolar 1 disorder, mixed F3 1.60 ; Generalized anxiety disorder F41.1 and Tobacco use disorder F17.200 [facility] [address] [facility] [id number] [address] [place] [address] Jul, Bipolar 1 disorder, mixed F3 1.60 [facility] [address] [facility] [id number] [address] [place] [address] Jul, [facility] [address] [facility] [id number] [address] [place] [address] Jul, Bipolar 1 disorder, mixed F3 1.60 [facility] [address] [facility] [id number] [address] [place] [address] Jul, Allergic rhinitis J30.9 ; Ma darion depressive disorder, recurrent episode, moderate F33.1 and Tobacco 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 [facility] [id number] [place] [address] Jun, [facility] [address] [facility] [id number] [address] [place] [address] Jun, [facility] [address] [facility] [id number] [address] [place] [address] Jun, Bipolar 1 disorder, mixed F3 1.60 [facility] [id number] [place] [address] Jun, Bipolar 1 disorder, mixed F3 1.60 [facility] [address] [facility] [id number] [address] [place] [address] Jun, Bipolar 1 disorder, mixed F3 1.60 [facility] [address] [facility] [id number] [address] [place] [address] Jun, Generalized anxiety disorder F41.1 ; Tobacco abuse Z72.0 and Major depressive disorder, recurrent episode, moderate F33.1 [facility] [address] [facility] [id number] [address] [place] [address] May, Bipolar 1 disorder, mixed F3 1.60 [facility] [address] [facility] [id number] [address] [place] [address] May, Bipolar 1 disorder, mixed F3 1.60 and Generalized anxiety disorder F41.1 [facility] [address] [facility] [id number] [address] [place] [address] May, Bipolar 1 disorder, mixed F3 1.60 [facility] [id number] [place] [address] May, Allergic rhinitis J30.9 [facility] [address] [facility] [id number] [address] [place] [address] May, Bipolar 1 disorder, mixed F3 1.60 [place] [address] [id number] [place] [address] May, [facility] [id number] [place] [address] Apr, Allergic rhinitis J30.9 ; Dy sfunction of both eustachian tubes H69.83 ; History of bladder surgery Z98.890 and Cervicalgia M54.2 [place] [id number] [place] [address] Mar, Bipolar 1 disorder, mixed F3 1.60 [facility] [id number] [place] [address] Mar, [facility] [id number] [place] [address] Mar, Slow transit constipation K5 9.01 ; Encounter for immunization Z23 and Generalized anxiety disorder F41.1 [facility] [address] [facility] [id number] [address] [place] [address] Feb, Bipolar 1 disorder, mixed F3 1.60 [facility] [id number] [place] [address] Feb, Allergic rhinitis J30.9 [facility] [id number] [place] [address] Feb, Bipolar 1 disorder, mixed F3 1.60 [facility] [address] [facility] [id number] [address] [place] [address] Feb, Bipolar 1 disorder, mixed F3 1.60 and Generalized anxiety disorder F41.1 [facility] [address] [facility] [id number] [address] [place] [address] 13 Feb, 2018 Bipolar 1 disorder, mixed F3 1.60 [facility] [address] [facility] [id number] [address] [place] [address] Feb, Allergic rhinitis J30.9 [facility] [address] [facility] [id number] [address] [place] [address] 05 Feb, 2018 [facility] [id number] [place] [address] Jan, Bipolar 1 disorder, mixed F3 1.60 [facility] [id number] [place] [address] Jan, Low back pain M54.5 ; Hyperl ipidemia, unspecified hyperlipidemia type E78.5 and Bipolar 1 disorder, mixed F31.60 [place] [id number] [place] [address] Jan, Bipolar 1 disorder, mixed F3 1.60 [facility] [id number] [place] [address] Jan, Bipolar 1 disorder, mixed F3 1.60 [facility] [address] [facility] [id number] [address] [place] [address] Jan, Bipolar 1 disorder, mixed F3 1.60 [facility] [address] [facility] [id number] [address] [place] [address] Jan, Bipolar 1 disorder, mixed F3 1.60 [facility] [address] [facility] [id number] [address] [place] [address] Dec, Bipolar 1 disorder, mixed F3 1.60 ; Generalized anxiety disorder F41.1 and 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 [facility] [address] [facility] [id number] [address] [place] [address] 16 Dec, 2017 Other termite exterminator (current) dr bin therapy Z79.899 [facility] [address] [facility] [id number] [address] [place] [address] Dec, Bipolar 1 disorder, mixed F3 1.60 [facility] [address] [facility] [id number] [address] [place] [address] Dec, Bipolar 1 disorder, mixed F3 1.60 [facility] [address] [facility] [id number] [address] [place] [address] Nov, Bipolar 1 disorder, mixed F3 1.60 [facility] [address] [facility] [id number] [address] [place] [address] Nov, Bipolar 1 disorder, mixed F3 1.60 [facility] [id number] [place] [address] Nov, Bipolar 1 disorder, mixed F3 1.60 [facility] [address] [facility] [id number] [address] [place] [address] Nov, Allergic rhinitis J30.9 [facility] [address] [facility] [id number] [address] [place] [address] Nov, Allergic rhinitis J30.9 [facility] [address] [facility] [id number] [address] [place] [address] Nov, [facility] [address] [facility] [id number] [address] [place] [address] Nov, Bipolar 1 disorder, mixed F3 1.60 [facility] [address] [facility] [id number] [address] [place] [address] Nov, Fibromyalgia M79.7 and Aller gic rhinitis J30.9 [facility] [address] [facility] [id number] [address] [place] [address] October, Bipolar 1 disorder, mixed F3 1.60 [facility] [address] [facility] [id number] [address] [place] [address] October, [facility]oph[facility] J00 [facility] [address] [facility] [id number] [address] [place] [address] October, Bitten or stung by nonvenomo us insect and other nonvenomous arthropods, initial encounter W57.XXXA and Insect bite (nonvenomous) of abdominal wall, initial encounter S30.861A [facility] [address] [facility] [id number] [address] [place] [address] October, Insect bite (nonvenomous) of abdominal wall, initial encounter S30.861A ; Bitten or stung by nonvenomous insect and other nonvenomous arthropods, initial encounter W57.XXXA ; Allergic rhinitis J30.9 and Low back pain M54.5 [facility] [id number] [place] [address] October, Bipolar 1 disorder, mixed F3 1.60 [facility] [address] [facility] [id number] [address] [place] [address] October, [facility] [id number] [place] [address] October, [facility] [address] [facility] [id number] [address] [place] [address] October, Bipolar 1 disorder, mixed F3 1.60 [facility] [address] [facility] [id number] [address] [place] [address] Sep, Bipolar 1 disorder, mixed F3 1.60 [facility] [address] [facility] [id number] [address] [place] [address] Sep, Other chronic pain G89.29 [facility] [address] [facility] [id number] [address] [place] [address] Sep, [facility] [address] [facility] [id number] [address] [place] [address] Sep, Bipolar 1 disorder, mixed F3 1.60 [facility] [address] [facility] [id number] [address] [place] [address] Sep, Allergic rhinitis J30.9 and Sciatica of left side M54.32 [facility] [address] [facility] [id number] [address] [place] [address] Sep, Bipolar 1 disorder, mixed F3 1.60 [facility] [address] [facility] [id number] [address] [place] [address] Sep, Bipolar 1 disorder, mixed F3 1.60 and Generalized anxiety disorder F41.1 [facility] [address] [id number] [address] [place] [address] Aug, [facility] [address] [facility] [id number] [address] [place] [address] Aug, Bipolar 1 disorder, mixed F3 1.60 [facility] [id number] [place] [address] Aug, Bipolar 1 disorder, mixed F3 1.60 [facility] [address] [facility] [id number] [address] [place] [address] Aug, [facility] [address] [facility] [id number] [address] [place] [address] Aug, Generalized anxiety disorder F41.1 [facility] [address] [facility] [id number] [address] [place] [address] Aug, Bipolar 1 disorder, mixed F3 1.60 [facility] [address] [facility] [id number] [address] [place] [address] Aug, Plantar wart of right foot B 07.0 [facility] [address] [facility] [id number] [address] [place] [address] Aug, Bipolar 1 disorder, mixed F3 1.60 [facility] [address] [facility] [id number] [address] [place] [address] Jul, Bipolar 1 disorder, mixed F3 1.60 [facility] [address] [facility] [id number] [address] [place] [address] 19 Jul, 2017 [facility] [id number] [place] [address] 14 Jul, 2017 Bipolar 1 disorder, mixed F3 1.60 [facility] [id number] [place] [address] 09 Jul, 2017 Generalized anxiety disorder F41.1 [facility] [id number] [place] [address] Jul, Bipolar 1 disorder, mixed F3 1.60 [place] [address] [place] [id number] [place] [address] Jul, Acute left-sided low back pa in with left-sided sciatica M54.42 [facility] [id number] [place] [address] Jul, Coccydynia M53.3 [facility] [id number] [place] [address] Jun, Bipolar 1 disorder, mixed F3 1.60 [facility] [id number] [place] [address] Jun, Acute nasopharyngitis J00 [facility] [id number] [place] [address] Jun, Bipolar 1 disorder, mixed F3 1.60 [facility] [id number] [place] [address] Jun, Fibromyalgia M79.7 [facility] [address] [facility] [id number] [address] [place] [address] Jun, Bipolar 1 disorder, mixed F3 1.60 [facility] [id number] [place] [address] Jun, Fibromyalgia M79.7 and Bipol ar 1 disorder, mixed F31.60 [facility] [address] [address] 27 May, 2017 Bipolar 1 disorder, mixed F3 1.60 ; Generalized anxiety disorder F41.1 and 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 [place] [id number] [address] 21 May, 2017 Bipolar 1 disorder, mixed F3 1.60 [facility] [address] [address] 14 May, 2017 Cough R05 and Body aches R52 [facility] [address] [address] 10 May, 2017 Bladder spasm N32.89 and Acu te cystitis without hematuria N30.00 [place] [address] [address] 07 May, 2017 Bipolar 1 disorder, mixed F3 1.60 [place] [address] [address] 30 Apr, 2017 [place] [address] [address] Apr, Major depressive disorder, r ecurrent episode, moderate F33.1 and Encounter for immunization Z23 [place] [address] [address] Apr, Bipolar 1 disorder, mixed F3 1.60 [place] [address] [address] Apr, Bipolar 1 disorder, mixed F3 1.60 [place] [address] [address] 16 Apr, 2017 Bipolar 1 disorder, mixed F3 1.60 [place] [address] [address] 13 Apr, 2017 Yeast vaginitis B37.3 [place] [address] [address] Apr, Bipolar 1 disorder, mixed F3 1.60 [facility] [address] [place] [id number] [place] [address] Apr, Cellulitis L03.[address] for immunization Z23 [facility] [address] [place] [id number] [place], [place] [id number] Apr, Bipolar 1 disorder, mixed F3 1.60 [facility] [address] [place] [id number] [address] [place] [address] Mar, Bipolar 1 disorder, mixed F3 1.60 [facility] [id number] Mar, Bipolar 1 disorder, mixed F3 1.60 [facility] [address] [address] Mar, Imbalance R26.89 and Encount er for immunization Z23 [facility] [address] [place] [id number] [place] [address] Mar, Generalized anxiety disorder F41.1 [facility] [address] [place] [address] Mar, Bipolar 1 disorder, mixed F3 1.60 [facility] [address] [place] [id number] [place] [address] Mar, Generalized anxiety disorder F41.1 [facility] [id number] [place] [address] Mar, Bipolar 1 disorder, mixed F3 1.60 [facility] [address] [place] [id number] [place] [address] Mar, Bipolar 1 disorder, mixed F3 1.60 [facility] [address] [place] [id number] [place], [place] [id number] Feb, Bipolar 1 disorder, mixed F3 1.60 [facility] [id number] [place], [place] [id number] Feb, Bipolar 1 disorder, mixed F3 1.60 and Generalized anxiety disorder F41.1 [facility] [id number] [place] [id number] Feb, Gastritis without bleeding, unspecified chronicity, unspecified gastritis type K29.70 ; Hammer toe of right foot M20.41 and Other viral warts B07.8 [place] [address] [place] [id number] [place] [id number] Feb, Bipolar 1 disorder, mixed F3 1.60 [place] [address] [place] [id number] [place] [id number] Feb, Bipolar 1 disorder, mixed F3 1.60 [place] [address] [place] [id number] [place] [id number] 05 Feb, 2017 Bipolar 1 disorder, mixed F3 1.60 [place] [address] [address] Jan, Encounter for screening mamm ogram for breast cancer Z12.31 ; Other viral warts B07.8 and Allergic rhinitis J30.9 [place] [address] [id number] Jan, Bipolar 1 disorder, mixed F3 1.60 [place] [address] [place] [id number] [place] [id number] Jan, Bipolar 1 disorder, mixed F3 1.60 [place] [address] [place] [id number] [place] [id number] Jan, [place] [address] [place] [id number] [place] [address] Jan, Bipolar 1 disorder, mixed F3 1.60 [place] [address] [place] [id number] [place] [id number] Jan, Bipolar 1 disorder, mixed F3 1.60 [place] [address] [place] [id number] [place] [address] Jan, Allergic rhinitis J30.9 ; He maturia R31.9 and Colon cancer screening Z12.11 [facility] [id number] [place] [id number] Dec, Bipolar 1 disorder, mixed F3 1.60 [facility] [address] [id number] [address] [place] [address] Dec, Bipolar 1 disorder, mixed F3 1.60 ; Generalized anxiety disorder F41.1 and Other snf (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 Z79.899 [facility] [address] [id number] [address] [place] [address] Dec, Bipolar 1 disorder, mixed F3 1.60 [place] [address] [id number] [address] [place] [address] Dec, Bipolar 1 disorder, mixed F3 1.60 [place] [address] [id number] [address] [place] [address] Dec, Bipolar 1 disorder, mixed F3 1.60 [facility] [address] [id number] [address] [place] [address] Dec, Low back pain M54.5 and Recu rrent urinary tract infection N39.0 [facility] [id number] [address] [place] [address] Nov, Bipolar 1 disorder, mixed F3 1.60 [facility] [id number] [address] [place] [address] Nov, Bipolar 1 disorder, mixed F3 1.60 [facility] [id number] [address] [place] [address] Nov, Bipolar 1 disorder, mixed F3 1.60 [place] [address] [id number] [address] [place] [address] Nov, Bipolar 1 disorder, mixed F3 1.60 [facility] [id number] [address] [place] [address] Nov, [place] [address] [place] [id number] [address] [place] [address] Nov, Anesthesia of skin R20.0 ; F requent UTI N39.0 ; Tobacco abuse Z72.0 and Colon cancer screening Z12.11 [place] [address] [address] Nov, Bipolar 1 disorder, mixed F3 1.60 [place] [address] [address] October, Bipolar 1 disorder, mixed F3 1.60 [place] [address] [address] October, Bipolar 1 disorder, mixed F3 1.60 [place] [address] [address] October, Bipolar 1 disorder, mixed F3 1.60 [place] [address] [address] October, Bipolar 1 disorder, mixed F3 1.60 [place] [address] [address] October, Bipolar 1 disorder, mixed F3 1.60 [place] [address] [address] October, Cervicalgia M54.2 and Bipola r 1 disorder, mixed F31.60 [place] [address] [address] October, Hypertension I10 ; Hyperlipi demia, unspecified hyperlipidemia type E78.5 and Family history of thyroid disease Z83.49 [place] [address] [address] October, [place] [address] [address] October, Hypertension I10 ; Hyperlipi demia, unspecified hyperlipidemia type E78.5 and Family history of thyroid problem Z83.49 [facility] [id number] [address] [place] [address] October, Bipolar 1 disorder, mixed F3 1.60 [facility] [id number] [place], [place] [address] Sep, Bipolar 1 disorder, mixed F3 1.60 [facility] [address] [address] Sep, Bipolar 1 disorder, mixed F3 1.60 [place] [id number] [place] [address] Sep, Bipolar 1 disorder, mixed F3 1.60 [place] [id number] [place] [address] Sep, History of colon polyps Z86. 010 and Hematochezia K92.1 [place] [address] [place] [id number] [address] [place] [address] Sep, Major depressive disorder, r ecurrent episode, moderate F33.1 [place] [id number] [place] [address] Sep, Bipolar 1 disorder, mixed F3 1.60 [place] [id number] [place] [address] Aug, Hot flashes due to menopause N95.1 [place] [id number] [place] [address] Aug, Bipolar 1 disorder, mixed F3 1.60 [place] [id number] [place] [address] Aug, [place] [address] [address] Aug, Bipolar 1 disorder, mixed F3 1.60 [place] [id number] [place] [address] Aug, Bipolar 1 disorder, mixed F3 1.60 [place] [id number] [address] Aug, Hot flashes due to menopause N95.1 ; Cervicalgia M54.2 and Ataxia R27.0 [place] [address] [address] Jul, Bipolar 1 disorder, mixed F3 1.60 [place] [address] [address] Jul, Bipolar 1 disorder, mixed F3 1.60 [place] [address] Jul, Bipolar 1 disorder, mixed F3 1.60 [place] [address] [address] Jul, Bipolar 1 disorder, mixed F3 1.60 [place] [address] [address] Jul, Bipolar 1 disorder, mixed F3 1.60 [place] [address] [address] Jul, Cervicalgia M54.2 ; Tremor R 25.1 ; Hearing abnormally acute, unspecified laterality H93.239 ; Alopecia L65.9 ; Encounter for immunization Z23 and Family history of thyroid disease Z83.49 [place] [address] [address] Jul, Bipolar 1 disorder, mixed F3 1.60 [place] [address] [address] Jun, [place] [address] [place] [id number] Jun, Hearing disorder, unspecifie d laterality H93.299 [place] [address] [address] Jun, Bipolar 1 disorder, mixed F3 1.60 [facility] [address] [id number] [address] [place] [address] Jun, Bipolar 1 disorder, mixed F3 1.60 [facility] [address] [id number] [address] [place] [address] Jun, Allergic rhinitis J30.9 [facility] [address] [id number] [address] [place] [address] Jun, Bipolar 1 disorder, mixed F3 1.60 [facility] [address] [id number] [address] [place] [address] Jun, Bipolar 1 disorder, mixed F3 1.60 [facility] [address] [id number] [address] [place] [address] Jun, Allergic rhinitis J30.9 [facility] [address] [id number] [address] [place] [address] Jun, Allergic rhinitis J30.9 [facility] [address] [id number] [address] [place] [address] Jun, Bipolar 1 disorder, mixed F3 1.60 [facility] [address] [id number] [address] [place] [address] May, Bipolar 1 disorder, mixed F3 1.60 [facility] [address] [id number] [address] [place] [address] May, Bipolar 1 disorder, mixed F3 1.60 [facility] [address] [id number] [address] [place] [address] May, [facility] [address] [id number] [address] [place] [address] May, Bipolar 1 disorder, mixed F3 1.60 [facility] [address] [facility] [id number] [address] [place] [address] May, Bipolar 1 disorder, mixed F3 1.60 [facility] [address] [facility] [id number] [address] [place] [address] May, [facility] [address] [facility] [id number] [address] [place] [address] May, [facility] [address] [facility] [id number] [address] [place] [address] May, [facility] [address] [facility] [id number] [address] [place] [address] May, Abdominal pain, unspecified location R10.9 [facility] [address] [facility] [id number] [address] [place] [address] May, [facility] [id number] [address] [place] [address] Apr, Hematuria R31.9 ; Ataxia R27 .0 and Hearing loss, unspecified laterality H91.90 [facility] [address] [facility] [id number] [address] [place] [address] Apr, Bipolar 1 disorder, mixed F3 1.60 [facility] [address] [facility] [id number] [address] [place] [address] Apr, Acute effusion of both middl e ears H65.193 [facility] [address] [facility] [id number] [address] [place] [address] Apr, Hematuria R31.9 and Pyelonep hritis N12 [facility] [address] [facility] [id number] [address] [place] [address] Apr, [facility] [address] [facility] [id number] [address] [place] [address] Mar, Bipolar 1 disorder, mixed F3 1.60 [facility] [address] [facility] [id number] [address] [place] [address] Mar, [facility] [address] [facility] [id number] [address] [place] [address] Mar, Bipolar 1 disorder, mixed F3 1.60 [facility] [address] [facility] [id number] [address] [place] [address] Mar, Bipolar 1 disorder, mixed F3 1.60 [place] [id number] [place], [place] [address] Mar, Encounter for immunization Z 23 and Gastritis without bleeding, unspecified chronicity, unspecified gastritis type K29.70 [place] [id number] [place] [address] Mar, Bipolar 1 disorder, mixed F3 1.60 and Grief F43.20 [place] [id number] [place] [address] Mar, Gastritis without bleeding, unspecified chronicity, unspecified gastritis type K29.70 [place] [id number] [place] [address] Mar, Bipolar 1 disorder, mixed F3 1.60 [place] [id number] [place] [address] Mar, Gastritis without bleeding, unspecified chronicity, unspecified gastritis type K29.70 [place] [id number] [place] [address] Mar, [place] [id number] [place] [address] 27 Feb, 2016 Bipolar 1 disorder, mixed F3 1.60 [place] [id number] [place] [address] Feb, Bipolar 1 disorder, mixed F3 1.60 and Grief F43.20 [place] [address] [facility] [id number] [address] [place] [address] 22 Feb, 2016 Gastritis without bleeding, unspecified chronicity, unspecified gastritis type K29.70 [place] [id number] [place] [address] 14 Feb, 2016 Bipolar 1 disorder, mixed F3 1.60 [facility] [id number] [address] [place], [place] [id number] Feb, Gastroesophageal reflux dise ase, esophagitis presence not specified K21.9 [place] [address] Jan, Bipolar 1 disorder, mixed F3 1.60 [place] [address] Jan, Bipolar 1 disorder, mixed F3 1.60 and Unsteady gait R26.81 [place] [address] Jan, Bipolar 1 disorder, mixed F3 1.60 [place] [address] Jan, Bipolar 1 disorder, mixed F3 1.60 and Other snf (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 Z79.899 [place] [address] [place] [address] Jan, Bipolar 1 disorder, mixed F3 1.60 [place] [address] [address] Jan, Bipolar 1 disorder, mixed F3 1.60 [place] [address] Jan, Bipolar 1 disorder, mixed F3 1.60 ; Grief F43.20 and Other snf (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 Z79.899 [place] [address] [place] [id number] Jan, Bipolar 1 disorder, mixed F3 1.60 [place] [address] [place] [address] Dec, [place] [address] [place] [id number] Dec, Bipolar 1 disorder, mixed F3 1.60 ; Vitamin D deficiency, unspecified E55.9 ; H/O allergic rhinitis Z87.09 ; Other chronic pain G89.29 and Dorsalgia, unspecified M54.9 [facility] [address] [id number] [address] [place] [address] Dec, [facility] [address] [id number] [address] [place] [address] Dec, Bipolar 1 disorder, mixed F3 1.60 [facility] [address] [facility] [id number] [address] [place] [address] Dec, Major depressive disorder, r ecurrent episode, moderate F33.1 [place] [address] [facility] [id number] [address] [place] [address] Dec, Major depressive disorder, r ecurrent episode, moderate F33.1 [place] [address] [facility] [id number] [address] [place] [address] Nov, [place] [address] [facility] [id number] [address] [place] [address] Nov, Bipolar 1 disorder, mixed F3 1.60 [place] [id number] [facility] [id number] [address] [place] [address] Nov, Major depressive disorder, r ecurrent episode, moderate F33.1 [facility] [address] [facility] [id number] [address] [place] [address] Nov, Cervicalgia M54.2 ; Arthralg ia of hip, unspecified laterality M25.559 ; Allergic rhinitis J30.9 and Hormone replacement therapy Z79.890 [facility] [address] [facility] [id number] [address] [place] [address] Nov, Other seasonal allergic rhin itis J30.2 [facility] [address] [facility] [id number] [address] [place] [address] October, Major depressive disorder, r ecurrent episode, moderate F33.1 [facility] [address] [facility] [id number] [address] [place] [address] October, Major depressive disorder, r ecurrent episode, moderate F33.1 and Arthralgia of hip, unspecified laterality M25.559 [place] [address] [facility] [id number] [address] [place] [address] October, Grief F43.20 ; Hypertension I10 ; Hyperlipidemia, unspecified hyperlipidemia type E78.5 ; Other chronic pain G89.29 and Allergic rhinitis, unspecified allergic rhinitis type J30.9 [place] [address] [facility] [id number] [address] [place] [address] October, Major depressive disorder, r ecurrent episode, moderate F33.1 [place] [address] [facility] [id number] [address] [place] [address] Sep, Major depressive disorder, r ecurrent episode, moderate F33.1 [place] [address] [place] [id number] [place] [address] Sep, [place] [id number] [place] [address] Sep, Major depressive disorder, r ecurrent episode, moderate F33.1 [place] [address] [place] [id number] [place] [address] Sep, Grief F43.20 [place] [address] [place] [id number] [place] [address] Aug, Major depressive disorder, r ecurrent episode, moderate F33.1 [place] [address] [place] [id number] [place] [address] Aug, Bipolar 1 disorder, mixed F3 1.60 [place] [address] [facility] [id number] [address] [place] [address] Aug, Allergic rhinitis J30.9 ; Ce rvicalgia M54.2 and Low back pain M54.5 [place] [address] [facility] [id number] [address] [place] [address] Aug, Major depressive disorder, r ecurrent episode, moderate F33.1 [facility] [address] [id number] [address] [place] [address] Aug, Sinusitis J32.9 and Tobacco 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 [facility] [address] [facility] [id number] [address] [place] [address] Aug, [facility] [address] [facility] [id number] [address] [place] [address] Aug, Depressive disorder, not els ewhere classified F32.9 ; Hormone replacement therapy Z79.[address] scan, head R93.0 [facility] [address] [id number] [address] [place] [address] Aug, Major depressive disorder, r ecurrent episode, moderate F33.1 [facility] [address] [facility] [id number] [address] [place] [address] Jul, Major depressive disorder, r ecurrent episode, moderate F33.1 [facility] [address] [facility] [id number] [address] [place] [address] Jul, Abdominal pain R10.9 and Hyp ertension I10 [facility] [address] [id number] [address] [place] [address] Jul, [facility] [address] [facility] [id number] [address] [place] [address] 05 Jul, 2015 Major depressive disorder, r ecurrent episode, moderate F33.1 [facility] [address] [facility] [id number] [address] [place] [address] Jul, [facility] [address] [facility] [id number] [address] [place] [address] Jul, [facility] [address] [facility] [id number] [address] [place] [address] Jun, [facility] [address] [facility] [id number] [address] [place] [address] Jun, Depressive disorder, not els ewhere classified F32.9 [facility] [address] [id number] [address] [place] [address] Jun, [facility] [address] [id number] [address] [place] [address] Jun, [facility] [address] [facility] [id number] [address] [place] [address] Jun, Arthralgia of hip, unspecifi ed laterality M25.559 ; Bruising, spontaneous R23.3 and Night sweats R61 [facility] [address] [id number] [address] [place] [address] Jun, [facility] [address] [id number] [address] [place] [address] Jun, [facility] [address] [facility] [id number] [address] [place] [address] May, [facility] [address] [place] [id number] [address] [place] [address] May, Myalgia M79.1 and Screening, lipid Z13.220 [facility] [address] [facility] [id number] [address] [place] [address] Apr, Status post cervical spinal fusion Z98.1 ; Fibromyalgia M79.7 and Unsteady gait R26.81 [facility] [address] [facility] [id number] [address] [place] [address] Nov, [facility] [address] [facility] [id number] [address] [place] [address] Nov, [facility] [address] [id number] [address] [place] [address] October, [facility] [address] [place] [id number] [address] [place] [address] October, [facility] [address] [facility] [id number] [address] [place] [address] October, [facility] [address] [facility] [id number] [address] [place] [address] October, [facility] [address] [id number] [address] [place] [address] October, [facility] [address] [id number] [address] [place] [address] October, Dysuria 788.1 ; Nausea 787.0 2 and Urinary tract infection 599.0 [facility] [address] [id number] [address] [place] [address], [place] [id number] Sep, [facility] [address] [id number] [address] [place] [address], [place] [id number] Sep, [facility] [address] [id number] [address] [place] [address], [place] [id number] Aug, [facility] [address] [id number] [address] [place] [address] Aug, [facility] [address] [id number] [address] [place] [address] Aug, [facility] [address] [id number] [address] [place] [address] Aug, [facility] [address] [id number] [address] [place] [address], [place] [id number] Aug, [facility] [address] [id number] [address] [place] [address] Aug, [facility] [address] [id number] [address] [place] [address], [place] [id number] Aug, [facility] [address] [id number] [address] [place] [address] Aug, [facility] [address] [id number] [address] [place] [address], [place] [id number] Aug, [facility] [address] [id number] [address] [place] [id number] Aug, [facility] [address] [id number] [address] [place] [id number] Aug, [facility] [address] [id number] [facility] [place] [id number] Aug, [facility] [address] [id number] [address] [place] [address], [place] [id number] Aug, [facility] [address] [id number] [address] [place] [address], [place] [id number] Aug, [facility] [address] [id number] [address] [place] [address], [place] [id number] Aug, [facility] [address] [id number] [address] [place] [address], [place] [id number] Aug, [facility] [address] [id number] [address] [place] [address], [place] [id number] Aug, [facility] [address] [id number] [address] [place] [address], [place] [id number] Aug, [facility] [address] [id number] [address] [place] [address], [place] [id number] Aug, [facility] [address] [id number] [address] [place] [address], [place] [id number] Aug, [facility] [address] [id number] [address] [place] [address], [place] [id number] Aug, [facility] [address] [id number] [address] [place] [address], [place] [id number] Aug, [facility] [address] [id number] [address] [place] [address], [place] [id number] Jul, [facility] [address] [id number] [address] [place] [address], [place] [id number] Jul, [facility] [address] [id number] [address] [place] [address], [place] [id number] Jul, [facility] [address] [id number] [address] [place] [address], [place] [id number] Jul, [facility] [address] [id number] [address] [place] [address], [place] [id number] Jul, 2014 [facility] [address] [id number] [address] [place] [address], [place] [id number] Jul, 2014 [facility] [address] [id number] [address] [place] [address], [place] [id number] Jul, 2014 [facility] [address] [id number] [address] [place] [address], [place] [id number] Jul, 2014 [facility] [address] [id number] [address] [place] [address], [place] [id number] Jul, 2014 [facility] [address] [id number] [address] [place] [address], [place] [id number] Jul, 2014 [facility] [address] [id number] [address] [place] [address], [place] [id number] Jul, 2014 [facility] [address] [id number] [address] [place] [address], [place] [id number] Jul, 2014 [facility] [address] [id number] [address] [place] [address], [place] [id number] Jul, [facility] [address] [id number] [address] [place] [address], [place] [id number] Jul, [facility] [address] [id number] [address] [place] [address], [place] [id number] Jun, [facility] [address] [id number] [address] [place] [id number] Jun, [facility] [address] [id number] [address] [place] [address], [place] [id number] Jun, [facility] [address] [id number] [address] [place] [address], [place] [id number] Jun, [facility] [address] [id number] [address] [place] [address], [place] [id number] Jun, [facility] [address] [id number] [address] [place] [id number] Jun, [facility] [address] [id number] [address] [place] [address], [place] [id number] May, [facility] [address] [id number] [address] [place] [address], [place] [id number] May, [facility] [address] [id number] [address] [place] [address], [place] [id number] May, [facility] [address] [id number] [address] [place] [address], [place] [id number] May, [facility] [address] [id number] [address] [place] [address], [place] [id number] May, [facility] [address] [id number] [address] [place] [address], [place] [id number] May, [facility] [address] [id number] [address] [place] [address], [place] [id number] Apr, [facility] [address] [id number] [address] [place] [address], [place] [id number] Apr, [facility] [address] [id number] [address] [place] [address], [place] [id number] Apr, [facility] [address] [id number] [address] [place] [address], [place] [id number] Apr, [facility] [address] [id number] [address] [place] [address], [place] [id number] Apr, [facility] [address] [id number] [address] [place] [id number] Apr, [facility] [address] [id number] [address] [place] [address], [place] [id number] Mar, [facility] [address] [id number] [address] [place] [address], [place] [id number] Mar, [facility] [address] [id number] [address] [place] [address], [place] [id number] Mar, [facility] [address] [id number] [address] [place] [address], [place] [id number] 09 Mar, 2013 [facility] [address] [id number] [address] [place] [address], [place] [id number] Mar, 2013 [facility] [address] [id number] [address] [place] [address], [place] [id number] Mar, 2013 [facility] [address] [id number] [address] [place] [address], [place] [id number] Mar, 2013 [facility] [address] [id number] [address] [place] [address], [place] [id number] Mar, 2013 [facility] [address] [id number] [address] [place] [address], [place] [id number] Mar, 2013 [facility] [address] [id number] [address] [place] [address], [place] [id number] Mar, 2013 [facility] [address] [id number] [address] [place] [address], [place] [id number] Mar, 2013 [facility] [address] [id number] [address] [place] [address], [place] [id number] Mar, [facility] [address] [id number] [address] [place] [address], [place] [id number] 30 Feb, 2013 [facility] [address] [id number] [address] [place] [address], [place] [id number] 29 Sep, 2013 [facility] [address] [id number] [address] [place] [address], [place] [id number] 29 Sep, 2013 [facility] [address] [id number] [address] [place] [address], [place] [id number] 23 Sep, 2013 [facility] [address] [id number] [address] [place] [address], [place] [id number] 23 Sep, 2013 [facility] [address] [id number] [address] [place] [address], [place] [id number] 08 Sep, 2013 [facility] [address] [id number] [address] [place] [address], [place] [id number] Feb, [facility] [address] [id number] [address] [place] [address], [place] [id number] Jan, [facility] [address] [id number] [address] [place] [address], [place] [id number] Jan, [facility] [address] [id number] [address] [place] [address], [place] [id number] Jan, [facility] [address] [id number] [address] [place] [address], [place] [id number] Dec, [facility] [address] [id number] [address] [place] [address], [place] [id number] Dec, [facility] [address] [id number] [address] [place] [address], [place] [id number] Dec, [facility] [address] [id number] [address] [place] [address], [place] [id number] Dec, [facility] [address] [id number] [address] [place] [address], [place] [id number] Sep, [facility] [address] [id number] [address] [place] [address], [place] [id number] Sep, [facility] [address] [id number] [address] [place] [address], [place] [id number] Sep, [facility] [address] [id number] [address] [place] [address], [place] [id number] Sep, [facility] [address] [id number] [address] [place] [address], [place] [id number] Sep, [facility] [address] [id number] [address] [place] [address], [place] [id number] Sep, [facility] [address] [id number] [address] [place] [address], [place] [id number] Sep, [facility] [address] [id number] [address] [place] [address], [place] [id number] Sep, [facility] [address] [id number] [address] [place] [id number] 10 Aug, 2013 [facility] [address] [id number] [address] [place] [address], [place] [id number] Aug, [facility] [address] [id number] [address] [place] [address], [place] [id number] May, [facility] [address] [id number] [address] [place] [address], [place] [id number] May, [facility] [address] [id number] [address] [place] [address], [place] [id number] Apr, [facility] [address] [id number] [address] [place] [address], [place] [id number] Apr, [facility] [address] [id number] [address] [place] [address], [place] [id number] Apr, [facility] [address] [id number] [address] [place] [address], [place] [id number] Apr, [facility] [address] [id number] [address] [place] [address], [place] [id number] Apr, [facility] [address] [id number] [address] [place] [address], [place] [id number] Apr, [facility] [address] [id number] [address] [place] [address], [place] [id number] May, [facility] [address] [id number] [address] [place] [address], [place] [id number] 18 May, 2012 [facility] [address] [id number] [address] [place] [address], [place] [id number] 15 May, 2012 [facility] [address] [id number] [address] [place] [address], [place] [id number] 15 May, 2012 [facility] [address] [id number] [address] [place] [address], [place] [id number] 13 May, 2012 [facility] [address] [id number] [address] [place] [address], [place] [id number] 13 May, 2012 [facility] [address] [id number] [address] [place] [address], [place] [id number] 13 Apr, 2012 [facility] [address] [id number] [address] [place] [address], [place] [id number] 13 Apr, 2012 [facility] [address] [id number] [address] [place] [address], [place] [id number] 08 Apr, 2012 [facility] [address] [id number] [address] [place] [address], [place] [id number] Apr, [facility] [address] [id number] [address] [place] [address], [place] [id number] Apr, [facility] [address] [id number] [address] [place] [address], [place] [id number] Apr, [facility] [address] [id number] [address] [place] [address], [place] [id number] Apr, [facility] [address] [id number] [address] [place] [address], [place] [id number] Apr, [facility] [address] [id number] [address] [place] [address], [place] [id number] Apr, [facility] [address] [id number] [address] [place] [address], [place] [id number] Apr, [facility] [address] [id number] [address] [place] [address], [place] [id number] Mar, [facility] [address] [id number] [address] [place] [address], [place] [id number] Mar, [facility] [address] [id number] [address] [place] [address], [place] [id number] Mar, [facility] [address] [id number] [address] [place] [address], [place] [id number] Mar, [facility] [address] [id number] [address] [place] [address], [place] [id number] Mar, [facility] [address] [id number] [address] [place] [address], [place] [id number] Mar, [facility] [address] [id number] [address] [place] [address], [place] [id number] Mar, [facility] [address] [id number] [address] [place] [address], [place] [id number] Mar, [facility] [address] [id number] [address] [place] [address], [place] [id number] Mar, [facility] [address] [id number] [address] [place] [address], [place] [id number] 25 Feb, 2012 [facility] [address] [id number] [address] [place] [address], [place] [id number] 16 Feb, 2012 [facility] [address] [id number] [address] [place] [address], [place] [id number] Feb, [facility] [address] [id number] [address] [place] [address], [place] [id number] Jan, [facility] [address] [id number] [address] [place] [address], [place] [id number] Jan, [facility] [address] [id number] [address] [place] [address], [place] [id number] Jan, [facility] [address] [id number] [address] [place] [address], [place] [id number] Jan, [facility] [address] [id number] [address] [place] [address], [place] [id number] Jan, [facility] [address] [id number] [address] [place] [address], [place] [id number] Jan, [facility] [address] [id number] [address] [place] [address], [place] [id number] 16 Jan, 2012 [facility] [address] [id number] [address] [place] [address], [place] [id number] Jan, [facility] [address] [id number] [address] [place] [address], [place] [id number] Jan, [facility] [address] [id number] [address] [place] [address], [place] [id number] Jan, [facility] [address] [id number] [address] [place] [address], [place] [id number] Dec, [facility] [address] [id number] [address] [place] [address], [place] [id number] Dec, [facility] [address] [id number] [address] [place] [address], [place] [id number] Dec, [facility] [address] [id number] [address] [place] [address], [place] [id number] Dec, [facility] [address] [id number] [address] [place] [address], [place] [id number] Nov, [facility] [address] [id number] [address] [place] [address], [place] [id number] Nov, [facility] [address] [id number] [address] [place] [address], [place] [id number] Nov, [facility] [address] [id number] [address] [place] [address], [place] [id number] October, [facility] [address] [id number] [address] [place] [address], [place] [id number] October, [facility] [address] [id number] [address] [place] [address], [place] [id number] October, [facility] [address] [id number] [address] [place] [address], [place] [id number] October, [facility] [address] [id number] [address] [place] [address], [place] [id number] October, [facility] [address] [id number] [address] [place] [address], [place] [id number] October, [facility] [address] [id number] [address] [place] [address], [place] [id number] Aug, [facility] [address] [id number] [address] [place] [address], [place] [id number] Mar, [facility] [address] [facility] [id number] [address] [place] [id number] Nov, [facility] [address] [facility] [id number] [address] [place] [id number] May, [facility] [address] [facility] [id number] [address] [place] [id number] May, [facility] [address] [facility] [id number] [address] [place] [id number] Apr, [facility] [address] [facility] [id number] [address] [place] [id number] Mar, [facility] [address] [facility] [id number] [address] [place] [id number] Mar, IMMUNIZATIONS No Known Immunizations SOCIAL HISTORY Never Assessed REASON FOR VISIT PLAN OF CARE VITAL SIGNS Blood pressure systolic 110 mmHg 2014-06-26 Blood pressure diastolic 70 mmHg 2014-06-26 MEDICATIONS Unknown Medications RESULTS No Results PROCEDURES Procedure Date Ordered Result Body Site REMOVAL OF NAIL BED Jun 26, 2014 INSTRUCTIONS MEDICATIONS ADMINISTERED No Known Medications [...]
--- OUTSIDE RECORDS SUMMARY | 2019-06-19 05:03 | XMS REPORT ---
Author Author Sydnie HANCOCK [facility] Address [address] [place] [address] Care Team Providers Care Anode Adjuster Name Role Phone NAHOMY HANCOCK Unavailable PROBLEMS Type Condition ICD9-CM Code EIL21-BO Code Onset Dates Condition S tatus SNOMED Code Problem Abnormal CT scan, head R93.0 Active 351480763 Problem Bruising, spontaneous R23.3 Active 923474047 Problem Sensorineural hearing loss (SNHL) of both ears H90 .3 Active 303767295 Problem Arthralgia of hip, unspecified laterality M25.559 Active 25717535 Problem Night sweats R61 Active 3798880 0 Problem Grief F43.20 Active 40743038 Problem Hypertension I10 Active 5170938 3 Problem Major depressive disorder, recurrent episode, moderate F33.1 Active 948129757 Problem Imbalance R26.89 Active 679045521 Problem Age-related osteoporosis without current pathological fracture M81.0 Active 56843686 Problem Hormone replacement therapy Z79.890 Ac tive 229541641 Problem Ataxia R27.0 Active 62684123 Problem Bipolar 1 disorder, mixed F31.60 Acti ve 80478683 Problem Allergic rhinitis J30.9 Active 61 630615 Problem Hearing loss, unspecified laterality H91.90 Active 54376465 Problem Generalized anxiety disorder F41.1 A ctive 19949437 Problem History of colon polyps Z86.010 Active 929353381 Problem Hammer toe of right foot M20.41 Activ e 004482085 Problem Hematuria, unspecified type R31.9 Ac tive 99512240 Problem Fibromyalgia M79.7 Active 2712005 7 Problem Bladder spasm N32.89 Active 905448 006 Problem Acute left-sided low back pain with left-sided sciatica M54.42 Active 486660057 Problem Post menopausal syndrome N95.1 Activ e 451248974 Problem Hyperlipidemia, unspecified hyperlipidemia type E7 8.5 Active 22176971 Problem Sciatica of right side M54.31 Active 87690960 Problem Other chronic pain G89.29 Active 8 5838351 Problem Gastritis without bleeding, unspecified chronicity, unspecified gastritis type K29.70 Active 831872227 Problem Sciatica of left side M54.32 Active 38974951 Problem Plantar wart of right foot B07.0 Act mitchell [id number] Problem Slow transit constipation K59.01 Acti ve 86397588 Problem Tobacco use disorder F17.200 Active 868961432 ALLERGIES No Information ENCOUNTERS Encounter Location Date Diagnosis [facility] [address] [facility] [id number] [address] [place] [id number] Mar, [place] [address] [place] [id number] [place] [address] Mar, [place] [address] [facility] [id number] [address] [place] [address] Feb, [place] [address] [place] [id number] [address] [place] [address] Feb, Bipolar 1 disorder, mixed F3 1.60 [place] [address] [place] [id number] [address] [place] [address] Jan, Sciatica of right side M54.3 1 ; Low back pain M54.5 and Major depressive disorder, recurrent episode, moderate F33.1 [place] [address] [place] [id number] [address] [place] [address] Jan, Bipolar 1 disorder, mixed F3 1.60 [place] [address] [place] [id number] [address] [place] [address] Dec, Normal pelvic exam Z01.419 [place] [address] [place] [id number] [address] [place] [address] Dec, Bipolar 1 disorder, mixed F3 1.60 [place] [address] [facility] [id number] [address] [place] [address] Nov, Bipolar 1 disorder, mixed F3 1.60 [place] [address] [place] [id number] [address] [place] [address] Nov, Bipolar 1 disorder, mixed F3 1.60 ; Generalized anxiety disorder F41.1 ; Tobacco use disorder F17.200 and Other rn long term care (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 Z79.899 [facility] [address] [facility] [id number] [address] [place] [address] Nov, [facility] [address] [facility] [id number] [address] [place] [id number] Nov, Bipolar 1 disorder, mixed F3 1.60 [facility] [address] [facility] [id number] [address] [place] [address] October, Bipolar 1 disorder, mixed F3 1.60 [place] [address] [place] [id number] [address] [place] [address] October, Bipolar 1 disorder, mixed F3 1.60 [place] [address] [place] [id number] [address] [place] [address] October, [facility] [address] [facility] [id number] [address] [place] [address] October, Bipolar 1 disorder, mixed F3 1.60 ; Generalized anxiety disorder F41.1 and Tobacco use disorder F17.200 [facility] [address] [place] [id number] [address] [place] [id number] Sep, [facility] [address] [place] [id number] [address] [place] [address] Sep, Encounter for Medicare [facility] wellness exam Z00.00 ; Major depressive disorder, recurrent episode, moderate F33.1 ; Allergic rhinitis J30.9 ; Bipolar 1 disorder, mixed F31.60 ; Fibromyalgia M79.7 ; Hyperlipidemia, unspecified hyperlipidemia type E78.5 ; Hormone replacement therapy Z79.890 ; Encounter for screening for lung cancer Z12.2 and Tobacco use disorder F17.200 [facility] [address] [facility] [id number] [address] [place] [address] Sep, Bipolar 1 disorder, mixed F3 1.60 [facility] [address] [address] Sep, Other chronic pain G89.29 ; Hyperlipidemia, unspecified hyperlipidemia type E78.5 ; Breast cancer screening Z12.31 and Post menopausal syndrome N95.1 [place] [address] [id number] 16 Sep, 2018 Bipolar 1 disorder, mixed F3 1.60 [place] [address] [address] Sep, Bipolar 1 disorder, mixed F3 1.60 ; Generalized anxiety disorder F41.1 and Tobacco use disorder F17.200 [place] [address] [address] Sep, Gastritis without bleeding, unspecified chronicity, unspecified gastritis type K29.70 [place] [address] [address] Sep, Exercise counseling Z71.82 [place] [address] [address] Aug, Exercise counseling Z71.82 [place] [address] [address] Aug, Bipolar 1 disorder, mixed F3 1.60 [place] [address] [address] Aug, Exercise counseling Z71.82 [place] [address] [address] Aug, Bipolar 1 disorder, mixed F3 1.60 [place] [address] [address] 18 Aug, 2018 Gastritis without bleeding, unspecified chronicity, unspecified gastritis type K29.70 ; Tobacco abuse Z72.0 ; Generalized anxiety disorder F41.1 and Weight gain R63.5 [place] [address] [address] Aug, Bipolar 1 disorder, mixed F3 1.60 ; Generalized anxiety disorder F41.1 and Tobacco use disorder F17.200 [facility] [address] [facility] [id number] [address] [place] [address] Jul, Bipolar 1 disorder, mixed F3 1.60 [facility] [address] [facility] [id number] [address] [place] [address] Jul, [facility] [address] [facility] [id number] [address] [place] [address] Jul, Bipolar 1 disorder, mixed F3 1.60 [facility] [address] [facility] [id number] [address] [place] [id number] Jul, Allergic rhinitis J30.9 ; Ma darion depressive disorder, recurrent episode, moderate F33.1 and Tobacco 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 [facility] [address] [place] [id number] [address] [place] [address] Jun, [facility] [address] [facility] [id number] [address] [place] [address] Jun, [facility] [address] [facility] [id number] [address] [place] [address] Jun, Bipolar 1 disorder, mixed F3 1.60 [facility] [address] [facility] [id number] [address] [place] [address] Jun, Bipolar 1 disorder, mixed F3 1.60 [facility] [address] [facility] [id number] [address] [place] [address] Jun, Bipolar 1 disorder, mixed F3 1.60 [facility] [address] [facility] [id number] [address] [place] [id number] Jun, Generalized anxiety disorder F41.1 ; Tobacco abuse Z72.0 and Major depressive disorder, recurrent episode, moderate F33.1 [facility] [address] [facility] [id number] [address] [place] [id number] May, Bipolar 1 disorder, mixed F3 1.60 [facility] [address] [place] [id number] [address] [place] [address] May, Bipolar 1 disorder, mixed F3 1.60 and Generalized anxiety disorder F41.1 [facility] [address] [facility] [id number] [address] [place] [address] May, Bipolar 1 disorder, mixed F3 1.60 [facility] [address] [facility] [id number] [address] [place] [address] May, Allergic rhinitis J30.9 [facility] [address] [facility] [id number] [address] [place] [address] May, Bipolar 1 disorder, mixed F3 1.60 [place] [address] [place] [id number] [address] [place] [address] May, [place] [address] [place] [id number] [address] [place] [address] Apr, Allergic rhinitis J30.9 ; Dy sfunction of both eustachian tubes H69.83 ; History of bladder surgery Z98.890 and Cervicalgia M54.2 [place] [address] [place] [id number] [address] [place] [address] Mar, Bipolar 1 disorder, mixed F3 1.60 [place] [address] [place] [id number] [address] [place] [address] Mar, [place] [address] [place] [id number] [address] [place] [address] Mar, Slow transit constipation K5 9.01 ; Encounter for immunization Z23 and Generalized anxiety disorder F41.1 [facility] [address] [facility] [id number] [address] [place] [address] Feb, Bipolar 1 disorder, mixed F3 1.60 [facility] [address] [facility] [id number] [address] [place] [id number] Feb, Allergic rhinitis J30.9 [facility] [address] [facility] [id number] [address] [place] [address] Feb, Bipolar 1 disorder, mixed F3 1.60 [facility] [address] [facility] [id number] [address] [place] [id number] Feb, Bipolar 1 disorder, mixed F3 1.60 and Generalized anxiety disorder F41.1 [facility] [address] [facility] [id number] [address] [place] [id number] 13 Feb, 2018 Bipolar 1 disorder, mixed F3 1.60 [facility] [address] [facility] [id number] [address] [place] [address] Feb, Allergic rhinitis J30.9 [facility] [address] [facility] [id number] [address] [place] [id number] 05 Feb, 2018 [facility] [address] [facility] [id number] [address] [place] [id number] Jan, Bipolar 1 disorder, mixed F3 1.60 [facility] [address] [place] [id number] [address] [place] [address] Jan, Low back pain M54.5 ; Hyperl ipidemia, unspecified hyperlipidemia type E78.5 and Bipolar 1 disorder, mixed F31.60 [facility] [address] [facility] [id number] [address] [place] [id number] Jan, Bipolar 1 disorder, mixed F3 1.60 [facility] [address] [place] [id number] [address] [place] [address] Jan, Bipolar 1 disorder, mixed F3 1.60 [facility] [address] [place] [id number] [address] [place] [address] Jan, Bipolar 1 disorder, mixed F3 1.60 [facility] [address] [facility] [id number] [address] [place] [address] Jan, Bipolar 1 disorder, mixed F3 1.60 [facility] [address] [facility] [id number] [address] [place] [id number] Dec, Bipolar 1 disorder, mixed F3 1.60 ; Generalized anxiety disorder F41.1 and Other fdc (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 Z79.899 [facility] [address] [facility] [id number] [address] [place] [address] Dec, Other fdc (current) dr bin feliz Z79.899 [facility] [address] [facility] [id number] [address] [place] [id number] Dec, Bipolar 1 disorder, mixed F3 1.60 [facility] [address] [facility] [id number] [address] [place] [address] Dec, Bipolar 1 disorder, mixed F3 1.60 [facility] [address] [facility] [id number] [address] [place] [address] Nov, Bipolar 1 disorder, mixed F3 1.60 [facility] [address] [facility] [id number] [address] [place] [address] Nov, Bipolar 1 disorder, mixed F3 1.60 [facility] [address] [facility] [id number] [address] [place] [address] Nov, Bipolar 1 disorder, mixed F3 1.60 [facility] [address] [facility] [id number] [address] [place] [address] Nov, Allergic rhinitis J30.9 [facility] [address] [facility] [id number] [address] [place] [id number] Nov, Allergic rhinitis J30.9 [facility] [address] [facility] [id number] [address] [place] [id number] Nov, [facility] [address] [facility] [id number] [address] [place] [address] Nov, Bipolar 1 disorder, mixed F3 1.60 [facility] [address] [facility] [id number] [address] [place] [id number] Nov, Fibromyalgia M79.7 and Aller gic rhinitis J30.9 [facility] [address] [facility] [id number] [address] [place] [address] October, Bipolar 1 disorder, mixed F3 1.60 [facility] [address] [facility] [id number] [address] [place] [address] October, Acute nasopharyngitis J00 [facility] [address] [facility] [id number] [address] [place] [address] October, Bitten or stung by nonvenomo us insect and other nonvenomous arthropods, initial encounter W57.XXXA and Insect bite (nonvenomous) of abdominal wall, initial encounter S30.861A [facility] [address] [facility] [id number] [address] [place] [id number] October, Insect bite (nonvenomous) of abdominal wall, initial encounter S30.861A ; Bitten or stung by nonvenomous insect and other nonvenomous arthropods, initial encounter W57.XXXA ; Allergic rhinitis J30.9 and Low back pain M54.5 [facility] [address] [facility] [id number] [address] [place] [id number] October, Bipolar 1 disorder, mixed F3 1.60 [facility] [address] [facility] [id number] [address] [place] [address] October, [facility] [address] [place] [id number] [address] [place] [address] October, [facility] [address] [facility] [id number] [address] [place] [id number] October, Bipolar 1 disorder, mixed F3 1.60 [facility] [address] [place] [id number] [address] [place] [address] Sep, Bipolar 1 disorder, mixed F3 1.60 [facility] [address] [facility] [id number] [address] [place] [id number] Sep, Other chronic pain G89.29 [facility] [address] [facility] [id number] [address] [place] [address] Sep, [facility] [address] [facility] [id number] [address] [place] [address] Sep, Bipolar 1 disorder, mixed F3 1.60 [facility] [address] [id number] [address] [place] [address] Sep, Allergic rhinitis J30.9 and Sciatica of left side M54.32 [facility] [address] [facility] [id number] [address] [place] [address] Sep, Bipolar 1 disorder, mixed F3 1.60 [facility] [address] [facility] [id number] [address] [place] [address] Sep, Bipolar 1 disorder, mixed F3 1.60 and Generalized anxiety disorder F41.1 [facility] [address] [id number] [address] [place] [address] Aug, [facility] [address] [facility] [id number] [address] [place] [address] Aug, Bipolar 1 disorder, mixed F3 1.60 [facility] [address] [place] [id number] [address] [place] [address] Aug, Bipolar 1 disorder, mixed F3 1.60 [facility] [address] [facility] [id number] [address] [place] [address] Aug, [facility] [address] [facility] [id number] [address] [place] [address] Aug, Generalized anxiety disorder F41.1 [facility] [address] [place] [id number] [address] [place] [id number] Aug, Bipolar 1 disorder, mixed F3 1.60 [facility] [address] [facility] [id number] [address] [place] [id number] Aug, Plantar wart of right foot B 07.0 [facility] [address] [facility] [id number] [address] [place] [address] Aug, Bipolar 1 disorder, mixed F3 1.60 [facility] [address] [place] [id number] [address] [place] [id number] Jul, Bipolar 1 disorder, mixed F3 1.60 [facility] [address] [place] [id number] [address] [place] [address] Jul, [facility] [address] [facility] [id number] [address] [place] [id number] 14 Jul, 2017 Bipolar 1 disorder, mixed F3 1.60 [facility] [address] [place] [id number] [address] [place] [id number] Jul, Generalized anxiety disorder F41.1 [facility] [address] [place] [id number] [address] [place] [address] Jul, Bipolar 1 disorder, mixed F3 1.60 [place] [id number] [place] [address] Jul, Acute left-sided low back pa in with left-sided sciatica M54.42 [place] [address] [place] [id number] [address] [place] [address] Jul, Coccydynia M53.3 [facility] [address] [place] [id number] [address] [place] [address] Jun, Bipolar 1 disorder, mixed F3 1.60 [facility] [address] [place] [id number] [address] [place] [address] Jun, Acute nasopharyngitis J00 [facility] [address] [place] [id number] [address] [place] [address] Jun, Bipolar 1 disorder, mixed F3 1.60 [facility] [address] [place] [id number] [address] [place] [address] Jun, Fibromyalgia M79.7 [facility] [address] [facility] [id number] [address] [place] [address] Jun, Bipolar 1 disorder, mixed F3 1.60 [facility] [address] [place] [id number] [address] [place] [id number] Jun, Fibromyalgia M79.7 and Bipol ar 1 disorder, mixed F31.60 [facility] [address] [address] 27 May, 2017 Bipolar 1 disorder, mixed F3 1.60 ; Generalized anxiety disorder F41.1 and Other rn long term care (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 Z79.899 [place] [id number] [address] May, Bipolar 1 disorder, mixed F3 1.60 [facility] [address] [address] 14 May, 2017 Cough R05 and Body aches R52 [facility] [address] [address] 10 May, 2017 Bladder spasm N32.89 and Acu te cystitis without hematuria N30.00 [place] [address] [address] 07 May, 2017 Bipolar 1 disorder, mixed F3 1.60 [place] [address] [address] 30 Apr, 2017 [place] [address] [address] Apr, Major depressive disorder, r ecurrent episode, moderate F33.1 and Encounter for immunization Z23 [place] [address] [address] Apr, Bipolar 1 disorder, mixed F3 1.60 [place] [address] [address] Apr, Bipolar 1 disorder, mixed F3 1.60 [place] [address] [id number] 16 Apr, 2017 Bipolar 1 disorder, mixed F3 1.60 [place] [address] [address] 13 Apr, 2017 Yeast vaginitis B37.3 [place] [address] [address] Apr, Bipolar 1 disorder, mixed F3 1.60 [facility] [address] [place] [id number] [address] [place] [address] Apr, Cellulitis L03.[address] for immunization Z23 [facility] [address] [place] [id number] [address] [place] [address] Apr, Bipolar 1 disorder, mixed F3 1.60 [facility] [address] [place] [id number] [address] [place] [address] Mar, Bipolar 1 disorder, mixed F3 1.60 [facility] [address] [address] Mar, Bipolar 1 disorder, mixed F3 1.60 [facility] [address] [address] Mar, Imbalance R26.89 and Encount er for immunization Z23 [facility] [address] [place] [id number] [address] [place] [address] Mar, Generalized anxiety disorder F41.1 [facility] [address] [id number] Mar, Bipolar 1 disorder, mixed F3 1.60 [facility] [address] [id number] [address] [place] [id number] Mar, Generalized anxiety disorder F41.1 [facility] [id number] [place] [id number] Mar, Bipolar 1 disorder, mixed F3 1.60 [facility] [address] [id number] [address] [place] [id number] Mar, Bipolar 1 disorder, mixed F3 1.60 [facility] [address] [id number] [address] [place], [place] [id number] Feb, Bipolar 1 disorder, mixed F3 1.60 [facility] [address] [id number] [address] [place] [address] Feb, Bipolar 1 disorder, mixed F3 1.60 and Generalized anxiety disorder F41.1 [facility] [address] [id number] [address] [place] [address] Feb, Gastritis without bleeding, unspecified chronicity, unspecified gastritis type K29.70 ; Hammer toe of right foot M20.41 and Other viral warts B07.8 [facility] [address] [id number] [address] [place] [address] Feb, Bipolar 1 disorder, mixed F3 1.60 [place] [address] [id number] [address] [place] [address] Feb, Bipolar 1 disorder, mixed F3 1.60 [place] [id number] [place] [address] Feb, Bipolar 1 disorder, mixed F3 1.60 [place] [address] [address] Jan, Encounter for screening mamm ogram for breast cancer Z12.31 ; Other viral warts B07.8 and Allergic rhinitis J30.9 [place] [id number] [place] [address] Jan, Bipolar 1 disorder, mixed F3 1.60 [place] [address] [address] [id number] [address] [place] [address] Jan, Bipolar 1 disorder, mixed F3 1.60 [place] [address] [id number] [address] [place] [address] Jan, [facility] [address] [id number] [address] [place] [address] Jan, Bipolar 1 disorder, mixed F3 1.60 [place] [address] [id number] [address] [place] [id number] Jan, Bipolar 1 disorder, mixed F3 1.60 [place] [address] [id number] [address] [place] [address] Jan, Allergic rhinitis J30.9 ; He maturia R31.9 and Colon cancer screening Z12.11 [facility] [address] [id number] [address] [place] [address] Dec, Bipolar 1 disorder, mixed F3 1.60 [facility] [address] [id number] [address] [place] [address] Dec, Bipolar 1 disorder, mixed F3 1.60 ; Generalized anxiety disorder F41.1 and Other rn long term care (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 Z79.899 [place] [id number] [facility] [id number] [address] [place] [address] Dec, Bipolar 1 disorder, mixed F3 1.60 [place] [address] [id number] [address] [place] [address] Dec, Bipolar 1 disorder, mixed F3 1.60 [place] [address] [address] Dec, Bipolar 1 disorder, mixed F3 1.60 [place] [address] [address] [id number] [address] [place] [address] Dec, Low back pain M54.5 and Recu rrent urinary tract infection N39.0 [place] [address] [id number] [address] [place] [address] Nov, Bipolar 1 disorder, mixed F3 1.60 [place] [address] [id number] [address] [place] [address] Nov, Bipolar 1 disorder, mixed F3 1.60 [place] [id number] [id number] [address] [place] [address] Nov, Bipolar 1 disorder, mixed F3 1.60 [place] [address] [id number] [address] [place] [address] Nov, Bipolar 1 disorder, mixed F3 1.60 [facility] [address] [id number] [address] [place] [address] Nov, [place] [address] [place] [id number] [address] [place] [address] Nov, Anesthesia of skin R20.0 ; F requent UTI N39.0 ; Tobacco abuse Z72.0 and Colon cancer screening Z12.11 [place] [address] [place] [id number] [address] [place] [address] Nov, Bipolar 1 disorder, mixed F3 1.60 [place] [address] [address] October, Bipolar 1 disorder, mixed F3 1.60 [place] [address] October, Bipolar 1 disorder, mixed F3 1.60 [place] [address] [address] October, Bipolar 1 disorder, mixed F3 1.60 [place] [address] [address] October, Bipolar 1 disorder, mixed F3 1.60 [place] [address] [address] October, Bipolar 1 disorder, mixed F3 1.60 [place] [address] [address] October, Cervicalgia M54.2 and Bipola r 1 disorder, mixed F31.60 [place] [address] [address] October, Hypertension I10 ; Hyperlipi demia, unspecified hyperlipidemia type E78.5 and Family history of thyroid disease Z83.49 [place] [address] [address] October, [place] [address] [address] October, Hypertension I10 ; Hyperlipi demia, unspecified hyperlipidemia type E78.5 and Family history of thyroid problem Z83.49 [facility] [address] [id number] [address] [place] [address] October, Bipolar 1 disorder, mixed F3 1.60 [facility] [address] [id number] [address] [place] [address] Sep, Bipolar 1 disorder, mixed F3 1.60 [facility] [address] [id number] [address] [place] [address] Sep, Bipolar 1 disorder, mixed F3 1.60 [place] [address] [id number] [address] [place] [address] Sep, Bipolar 1 disorder, mixed F3 1.60 [place] [id number] [place] [address] Sep, History of colon polyps Z86. 010 and Hematochezia K92.1 [place] [address] [id number] [address] [place] [address] Sep, Major depressive disorder, r ecurrent episode, moderate F33.1 [place] [address] [place] [id number] [address] [place] [address] Sep, Bipolar 1 disorder, mixed F3 1.60 [place] [address] [place] [id number] [address] [place] [address] Aug, Hot flashes due to menopause N95.1 [facility] [address] [id number] [address] [place] [address] Aug, Bipolar 1 disorder, mixed F3 1.60 [facility] [address] [id number] [address] [place] [address] Aug, [place] [address] [id number] [address] [place] [address] Aug, Bipolar 1 disorder, mixed F3 1.60 [facility] [address] [id number] [address] [place] [address] Aug, Bipolar 1 disorder, mixed F3 1.60 [place] [address] [address] Aug, Hot flashes due to menopause N95.1 ; Cervicalgia M54.2 and Ataxia R27.0 [place] [address] [address] Jul, Bipolar 1 disorder, mixed F3 1.60 [place] [address] Jul, Bipolar 1 disorder, mixed F3 1.60 [place] [address] Jul, Bipolar 1 disorder, mixed F3 1.60 [place] [address] Jul, Bipolar 1 disorder, mixed F3 1.60 [place] [address] [address] Jul, Bipolar 1 disorder, mixed F3 1.60 [place] [address] [address] Jul, Cervicalgia M54.2 ; Tremor R 25.1 ; Hearing abnormally acute, unspecified laterality H93.239 ; Alopecia L65.9 ; Encounter for immunization Z23 and Family history of thyroid disease Z83.49 [place] [address] [address] Jul, Bipolar 1 disorder, mixed F3 1.60 [place] [address] [address] Jun, [place] [address] Jun, Hearing disorder, unspecifie d laterality H93.299 [place] [address] [address] Jun, Bipolar 1 disorder, mixed F3 1.60 [facility] [address] [id number] [address] [place] [address] Jun, Bipolar 1 disorder, mixed F3 1.60 [facility] [address] [facility] [id number] [address] [place] [address] Jun, Allergic rhinitis J30.9 [facility] [address] [id number] [address] [place] [address] Jun, Bipolar 1 disorder, mixed F3 1.60 [facility] [address] [id number] [address] [place] [address] Jun, Bipolar 1 disorder, mixed F3 1.60 [facility] [address] [id number] [address] [place] [address] Jun, Allergic rhinitis J30.9 [facility] [address] [id number] [address] [place] [address] Jun, Allergic rhinitis J30.9 [facility] [address] [id number] [address] [place] [address] Jun, Bipolar 1 disorder, mixed F3 1.60 [facility] [address] [id number] [address] [place] [address] May, Bipolar 1 disorder, mixed F3 1.60 [facility] [address] [id number] [address] [place] [address] May, Bipolar 1 disorder, mixed F3 1.60 [facility] [address] [id number] [address] [place] [address] May, [facility] [address] [id number] [address] [place] [address] May, Bipolar 1 disorder, mixed F3 1.60 [facility] [address] [facility] [id number] [address] [place] [address] May, Bipolar 1 disorder, mixed F3 1.60 [facility] [address] [facility] [id number] [address] [place] [address] May, [facility] [address] [facility] [id number] [address] [place] [address] May, [facility] [address] [facility] [id number] [address] [place] [address] May, [facility] [address] [facility] [id number] [address] [place] [address] May, Abdominal pain, unspecified location R10.9 [facility] [address] [facility] [id number] [address] [place] [address] May, [facility] [address] [facility] [id number] [address] [place] [address] Apr, Hematuria R31.9 ; Ataxia R27 .0 and Hearing loss, unspecified laterality H91.90 [facility] [address] [facility] [id number] [address] [place] [address] Apr, Bipolar 1 disorder, mixed F3 1.60 [facility] [address] [facility] [id number] [address] [place] [address] Apr, Acute effusion of both middl e ears H65.193 [facility] [address] [facility] [id number] [address] [place] [address] Apr, Hematuria R31.9 and Pyelonep hritis N12 [facility] [address] [facility] [id number] [address] [place] [address] Apr, [facility] [address] [facility] [id number] [address] [place] [address] Mar, Bipolar 1 disorder, mixed F3 1.60 [facility] [address] [facility] [id number] [address] [place] [address] Mar, [facility] [address] [facility] [id number] [address] [place] [address] Mar, Bipolar 1 disorder, mixed F3 1.60 [facility] [address] [facility] [id number] [address] [place] [address] Mar, Bipolar 1 disorder, mixed F3 1.60 [place] [address] [id number] [address] [place] [id number] Mar, Encounter for immunization Z 23 and Gastritis without bleeding, unspecified chronicity, unspecified gastritis type K29.70 [place] [address] [place] [id number] [address] [place] [address] Mar, Bipolar 1 disorder, mixed F3 1.60 and Grief F43.20 [place] [address] [facility] [id number] [address] [place] [address] Mar, Gastritis without bleeding, unspecified chronicity, unspecified gastritis type K29.70 [place] [address] [place] [id number] [address] [place] [address] Mar, Bipolar 1 disorder, mixed F3 1.60 [place] [address] [place] [id number] [address] [place] [address] Mar, Gastritis without bleeding, unspecified chronicity, unspecified gastritis type K29.70 [place] [address] [place] [id number] [address] [place] [address] Mar, [place] [address] [id number] [address] [place] [id number] 27 Feb, 2016 Bipolar 1 disorder, mixed F3 1.60 [place] [address] [place] [id number] [address] [place] [id number] Feb, Bipolar 1 disorder, mixed F3 1.60 and Grief F43.20 [place] [address] [facility] [id number] [address] [place] [address] Feb, Gastritis without bleeding, unspecified chronicity, unspecified gastritis type K29.70 [facility] [address] [facility] [id number] [address] [place] [address] 14 Feb, 2016 Bipolar 1 disorder, mixed F3 1.60 [facility] [address] [facility] [id number] [address] [place] [address] Feb, Gastroesophageal reflux dise ase, esophagitis presence not specified K21.9 [place] [address] Jan, Bipolar 1 disorder, mixed F3 1.60 [place] [address] Jan, Bipolar 1 disorder, mixed F3 1.60 and Unsteady gait R26.81 [place] [address] Jan, Bipolar 1 disorder, mixed F3 1.60 [place] [address] Jan, Bipolar 1 disorder, mixed F3 1.60 and Other rn long term care (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 Z79.899 [place] [address] [place] [address] Jan, Bipolar 1 disorder, mixed F3 1.60 [place] [address] [address] Jan, Bipolar 1 disorder, mixed F3 1.60 [place] [address] Jan, Bipolar 1 disorder, mixed F3 1.60 ; Grief F43.20 and Other rn long term care (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 Z79.899 [place] [address] [place] [address] Jan, Bipolar 1 disorder, mixed F3 1.60 [place] [address] [place] 8[address]682[address] Dec, [place] [address] [place] 8[address]682[address] Dec, Bipolar 1 disorder, mixed F3 1.60 ; Vitamin D deficiency, unspecified E55.9 ; H/O allergic rhinitis Z87.09 ; Other chronic pain G89.29 and Dorsalgia, unspecified M54.9 [facility] [address] [id number] [address] [place] [address] Dec, [facility] [address] [id number] [address] [place] [address] Dec, Bipolar 1 disorder, mixed F3 1.60 [facility] [address] [facility] [id number] [address] [place] [address] Dec, Major depressive disorder, r ecurrent episode, moderate F33.1 [place] [address] [facility] [id number] [address] [place] [address] Dec, Major depressive disorder, r ecurrent episode, moderate F33.1 [place] [address] [facility] [id number] [address] [place] [address] Nov, [place] [address] [facility] [id number] [address] [place] [address] Nov, Bipolar 1 disorder, mixed F3 1.60 [place] [address] [facility] [id number] [address] [place] [address] Nov, Major depressive disorder, r ecurrent episode, moderate F33.1 [place] [address] [facility] [id number] [address] [place] [address] Nov, Cervicalgia M54.2 ; Arthralg ia of hip, unspecified laterality M25.559 ; Allergic rhinitis J30.9 and Hormone replacement therapy Z79.890 [facility] [address] [facility] [id number] [address] [place] [address] Nov, Other seasonal allergic rhin itis J30.2 [facility] [address] [facility] [id number] [address] [place] [address] October, Major depressive disorder, r ecurrent episode, moderate F33.1 [facility] [address] [facility] [id number] [address] [place] [address] October, Major depressive disorder, r ecurrent episode, moderate F33.1 and Arthralgia of hip, unspecified laterality M25.559 [facility] [address] [facility] [id number] [address] [place] [address] October, Grief F43.20 ; Hypertension I10 ; Hyperlipidemia, unspecified hyperlipidemia type E78.5 ; Other chronic pain G89.29 and Allergic rhinitis, unspecified allergic rhinitis type J30.9 [place] [address] [facility] [id number] [address] [place] [address] October, Major depressive disorder, r ecurrent episode, moderate F33.1 [place] [address] [facility] [id number] [address] [place] [address] Sep, Major depressive disorder, r ecurrent episode, moderate F33.1 [place] [address] [facility] [id number] [address] [place] [address] Sep, [place] [address] [place] [id number] [address] [place] [address] Sep, Major depressive disorder, r ecurrent episode, moderate F33.1 [place] [address] [facility] [id number] [address] [place] [address] Sep, Grief F43.20 [place] [address] [place] [id number] [address] [place] [address] Aug, Major depressive disorder, r ecurrent episode, moderate F33.1 [place] [address] [facility] [id number] [address] [place] [address] Aug, Bipolar 1 disorder, mixed F3 1.60 [place] [address] [facility] [id number] [address] [place] [address] Aug, Allergic rhinitis J30.9 ; Ce rvicalgia M54.2 and Low back pain M54.5 [facility] [address] [facility] [id number] [address] [place] [address] Aug, Major depressive disorder, r ecurrent episode, moderate F33.1 [facility] IN [facility] [address] [facility] [id number] [address] [place] [address] Aug, Sinusitis J32.9 and Tobacco 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 [facility] [address] [facility] [id number] [address] [place] [address] Aug, [facility] [address] [facility] [id number] [address] [place] [address] Aug, Depressive disorder, not els ewhere classified F32.9 ; Hormone replacement therapy Z79.[address] scan, head R93.0 [facility] [address] [facility] [id number] [address] [place] [address] Aug, Major depressive disorder, r ecurrent episode, moderate F33.1 [facility] [address] [place] [id number] [address] [place] [address] Jul, Major depressive disorder, r ecurrent episode, moderate F33.1 [facility] [address] [place] [id number] [address] [place] [address] Jul, Abdominal pain R10.9 and Hyp ertension I10 [facility] [address] [facility] [id number] [address] [place] [id number] 08 Jul, 2015 [facility] [address] [place] [id number] [address] [place] [id number] 05 Jul, 2015 Major depressive disorder, r ecurrent episode, moderate F33.1 [facility] [address] [place] [id number] [address] [place] [address] Jul, [facility] [address] [facility] [id number] [address] [place] [address] Jul, [facility] [address] [place] [id number] [address] [place] [address] Jun, [facility] [address] [facility] [id number] [address] [place] [id number] Jun, Depressive disorder, not els ewhere classified F32.9 [facility] [address] [place] [id number] [address] [place] [address] Jun, [facility] [address] [id number] [address] [place] [address] Jun, [facility] [address] [facility] [id number] [address] [place] [address] Jun, Arthralgia of hip, unspecifi ed laterality M25.559 ; Bruising, spontaneous R23.3 and Night sweats R61 [facility] [address] [id number] [address] [place] [id number] Jun, [facility] [address] [id number] [address] [place] [address] Jun, [facility] [address] [facility] [id number] [address] [place] [address] May, [facility] [address] [place] [id number] [address] [place] [address] May, Myalgia M79.1 and Screening, lipid Z13.220 [facility] [address] [facility] [id number] [address] [place] [address] Apr, Status post cervical spinal fusion Z98.1 ; Fibromyalgia M79.7 and Unsteady gait R26.81 [facility] [address] [facility] [id number] [address] [place] [address] Nov, [facility] [address] [facility] [id number] [address] [place] [address] Nov, [facility] [address] [id number] [address] [place] [id number] October, [facility] [address] [facility] [id number] [address] [place] [id number] October, [facility] [address] [facility] [id number] [address] [place] [id number] October, [facility] [address] [facility] [id number] [address] [place] [id number] October, [facility] [address] [id number] [address] [place] [id number] October, [facility] [address] [id number] [address] [place] [id number] October, Dysuria 788.1 ; Nausea 787.0 2 and Urinary tract infection 599.0 [facility] [address] [id number] [address] [place] [address], [place] [phone] Sep, [facility] [address] [id number] [address] [place] [id number] Sep, [facility] [address] [id number] [address] [place] [address], [place] [id number] Aug, [facility] [address] [id number] [address] [place] [id number] Aug, [facility] [address] [id number] [address] [place] [address] [address] Aug, [facility] [address] [id number] [address] [place] [id number] Aug, [facility] [address] [id number] [address] [place] [address], [place] [address] Aug, [facility] [address] [id number] [address] [place] [id number] Aug, [facility] [address] [id number] [address] [place] [address], [place] [address] Aug, [facility] [address] [id number] [address] [place] [address] Aug, [facility] [address] [id number] [address] [place] [address] Aug, [facility] [address] [id number] [address] [place] [id number] Aug, [facility] [address] [id number] [address] [place] [id number] Aug, [facility] [address] [id number] [address] [place] [address], [place] [address] 13 Aug, 2014 [facility] [address] [id number] [address] [place] [address], [place] [address] 13 Aug, 2014 [facility] [address] [id number] [address] [place] [address], [place] [address] Aug, [facility] [address] [id number] [address] [place] [address], [place] [address] Aug, [facility] [address] [id number] [address] [place] [address], [place] [address] Aug, [facility] [address] [id number] [address] [place] [address], [place] [address] Aug, [facility] [address] [id number] [address] [place] [address], [place] [address] Aug, [facility] [address] [id number] [address] [place] [address], [place] [address] 05 Aug, 2014 [facility] [address] [id number] [address] [place] [address], [place] [address] Aug, [facility] [address] [id number] [address] [place] [address], [place] [address] Aug, [facility] [address] [id number] [address] [place] [address], [place] [address] Aug, [facility] [address] [id number] [address] [place] [address], [place] [address] Jul, [facility] [address] [id number] [address] [place] [address], [place] [address] Jul, [facility] [address] [id number] [address] [place] [address], [place] [address] Jul, [facility] [address] [id number] [address] [place] [address], [place] [address] Jul, [facility] [address] [id number] [address] [place] [address], [place] [address] Jul, 2014 [facility] [address] [id number] [address] [place] [address], [place] [address] Jul, 2014 [facility] [address] [id number] [address] [place] [address], [place] [address] Jul, 2014 [facility] [address] [id number] [address] [place] [address], [place] [address] Jul, 2014 [facility] [address] [id number] [address] [place] [address], [place] [address] Jul, 2014 [facility] [address] [id number] [address] [place] [address], [place] [address] Jul, 2014 [facility] [address] [id number] [address] [place] [address], [place] [address] Jul, 2014 [facility] [address] [id number] [address] [place] [address], [place] [address] Jul, 2014 [facility] [address] [id number] [address] [place] [address], [place] [address] Jul, [facility] [address] [id number] [address] [place] [address], [place] [address] Jul, [facility] [address] [id number] [address] [place] [address], [place] [address] Jun, [facility] [address] [id number] [address] [place] [address], [place] [address] Jun, [facility] [address] [id number] [address] [place] [address], [place] [address] Jun, [facility] [address] [id number] [address] [place] [address], [place] [address] Jun, [facility] [address] [id number] [address] [place] [address], [place] [address] Jun, [facility] [address] [id number] [address] [place] [address] [address] Jun, [facility] [address] [id number] [address] [place] [address], [place] [address] May, [facility] [address] [id number] [address] [place] [address], [place] [address] May, [facility] [address] [id number] [address] [place] [address], [place] [address] May, [facility] [address] [id number] [address] [place] [address], [place] [address] May, [facility] [address] [id number] [address] [place] [address], [place] [address] May, [facility] [address] [id number] [address] [place] [address], [place] [address] May, [facility] [address] [id number] [address] [place] [address], [place] [address] Apr, [facility] [address] [id number] [address] [place] [address], [place] [address] Apr, [facility] [address] [id number] [address] [place] [address], [place] [address] Apr, [facility] [address] [id number] [address] [place] [address], [place] [address] Apr, [facility] [address] [id number] [address] [place] [address], [place] [address] Apr, [facility] [address] [id number] [address] [place] [address], [place] [address] Apr, [facility] [address] [id number] [address] [place] [address], [place] [address] Mar, [facility] [address] [id number] [address] [place] [address], [place] [address] Mar, [facility] [address] [id number] [address] [place] [address], [place] [address] Mar, [facility] [address] [id number] [address] [place] [address], [place] [address] 09 Mar, 2013 [facility] [address] [id number] [address] [place] [address], [place] [address] Mar, 2013 [facility] [address] [id number] [address] [place] [address], [place] [address] Mar, 2013 [facility] [address] [id number] [address] [place] [address], [place] [address] Mar, 2013 [facility] [address] [id number] [address] [place] [address], [place] [address] Mar, 2013 [facility] [address] [id number] [address] [place] [address], [place] [address] Mar, 2013 [facility] [address] [id number] [address] [place] [address], [place] [address] Mar, 2013 [facility] [address] [id number] [address] [place] [address], [place] [address] Mar, 2013 [facility] [address] [id number] [address] [place] [address], [place] [address] Mar, 2013 [facility] [address] [id number] [address] [place] [address], [place] [address] 30 Sep, 2013 [facility] [address] [id number] [address] [place] [address], [place] [address] 29 Sep, 2013 [facility] [address] [id number] [address] [place] [address], [place] [address] 29 Sep, 2013 [facility] [address] [id number] [address] [place] [address], [place] [address] 23 Sep, 2013 [facility] [address] [id number] [address] [place] [address], [place] [address] 23 Sep, 2013 [facility] [address] [id number] [address] [place] [address], [place] [address] 08 Sep, 2013 [facility] [address] [id number] [address] [place] [address], [place] [address] Feb, [facility] [address] [id number] [address] [place] [address], [place] [address] Jan, [facility] [address] [id number] [address] [place] [address], [place] [address] Jan, [facility] [address] [id number] [address] [place] [address], [place] [address] Jan, [facility] [address] [id number] [address] [place] [address], [place] [address] Dec, [facility] [address] [id number] [address] [place] [address], [place] [address] Dec, [facility] [address] [id number] [address] [place] [address], [place] [address] Dec, [facility] [address] [id number] [address] [place] [address], [place] [address] Dec, [facility] [address] [id number] [address] [place] [address], [place] [address] Sep, [facility] [address] [id number] [address] [place] [address], [place] [address] Sep, [facility] [address] [id number] [address] [place] [address], [place] [address] Sep, [facility] [address] [id number] [address] [place] [address], [place] [address] Sep, [facility] [address] [id number] [address] [place] [address], [place] [address] Sep, [facility] [address] [id number] [address] [place] [address], [place] [address] Sep, [facility] [address] [id number] [address] [place] [address], [place] [address] Sep, [facility] [address] [id number] [address] [place] [address], [place] [address] Sep, [facility] [address] [id number] [address] [place] [address], [place] [address] 10 Aug, 2013 [facility] [address] [id number] [address] [place] [address], [place] [address] Aug, [facility] [address] [id number] [address] [place] [address], [place] [address] May, [facility] [address] [id number] [address] [place] [address], [place] [address] May, [facility] [address] [id number] [address] [place] [address], [place] [address] Apr, [facility] [address] [id number] [address] [place] [address], [place] [address] Apr, [facility] [address] [id number] [address] [place] [address], [place] [address] Apr, [facility] [address] [id number] [address] [place] [address], [place] [address] Apr, [facility] [address] [id number] [address] [place] [address], [place] [address] Apr, [facility] [address] [id number] [address] [place] [address], [place] [address] Apr, [facility] [address] [id number] [address] [place] [address], [place] [address] May, [facility] [address] [id number] [address] [place] [address], [place] [address] 18 May, 2012 [facility] [address] [id number] [address] [place] [address], [place] [address] 15 May, 2012 [facility] [address] [id number] [address] [place] [address], [place] [address] 15 May, 2012 [facility] [address] [id number] [address] [place] [address], [place] [address] 13 May, 2012 [facility] [address] [id number] [address] [place] [address], [place] [address] 13 May, 2012 [facility] [address] [id number] [address] [place] [address], [place] [address] 13 Apr, 2012 [facility] [address] [id number] [address] [place] [address], [place] [address] 13 Apr, 2012 [facility] [address] [id number] [address] [place] [address], [place] [address] 08 Apr, 2012 [facility] [address] [id number] [address] [place] [address], [place] [address] Apr, [facility] [address] [id number] [address] [place] [address], [place] [address] 08 Apr, 2012 [facility] [address] [id number] [address] [place] [address], [place] [address] Apr, [facility] [address] [id number] [address] [place] [address], [place] [address] Apr, [facility] [address] [id number] [address] [place] [address], [place] [address] Apr, [facility] [address] [id number] [address] [place] [address], [place] [address] Apr, [facility] [address] [id number] [address] [place] [address], [place] [address] Apr, [facility] [address] [id number] [address] [place] [address], [place] [address] Mar, [facility] [address] [id number] [address] [place] [address], [place] [address] Mar, [facility] [address] [id number] [address] [place] [address], [place] [address] Mar, [facility] [address] [id number] [address] [place] [address], [place] [address] Mar, [facility] [address] [id number] [address] [place] [address], [place] [address] Mar, [facility] [address] [id number] [address] [place] [address], [place] [address] Mar, [facility] [address] [id number] [address] [place] [address], [place] [address] Mar, [facility] [address] [id number] [address] [place] [address], [place] [address] Mar, [facility] [address] [id number] [address] [place] [address], [place] [address] Mar, [facility] [address] [id number] [address] [place] [address], [place] [address] 25 Feb, 2012 [facility] [address] [id number] [address] [place] [address], [place] [address] 16 Feb, 2012 [facility] [address] [id number] [address] [place] [address], [place] [address] Feb, [facility] [address] [id number] [address] [place] [address], [place] [address] Jan, [facility] [address] [id number] [address] [place] [address], [place] [address] Jan, [facility] [address] [id number] [address] [place] [address], [place] [address] Jan, [facility] [address] [id number] [address] [place] [address], [place] [address] Jan, [facility] [address] [id number] [address] [place] [address], [place] [address] Jan, [facility] [address] [id number] [address] [place] [address], [place] [address] Jan, [facility] [address] [id number] [address] [place] [address], [place] [address] 16 Jan, 2012 [facility] [address] [id number] [address] [place] [address], [place] [address] Jan, [facility] [address] [id number] [address] [place] [address], [place] [address] Jan, [facility] [address] [id number] [address] [place] [address] Jan, [facility] [address] [id number] [address] [place] [address], [place] [address] Dec, [facility] [address] [id number] [address] [place] [address], [place] [address] Dec, [facility] [address] [id number] [address] [place] [address], [place] [address] Dec, [facility] [address] [id number] [address] [place] [address], [place] [address] Dec, [facility] [address] [id number] [address] [place] [address], [place] [address] Nov, [facility] [address] [id number] [address] [place] [address], [place] [address] Nov, [facility] [address] [id number] [address] [place] [address], [place] [address] Nov, [facility] [address] [id number] [address] [place] [address], [place] [address] October, [facility] [address] [id number] [address] [place] [address], [place] [address] October, [facility] [address] [id number] [address] [place] [address], [place] [address] October, [facility] [address] [id number] [address] [place] [address], [place] [address] October, [facility] [address] [id number] [address] [place] [address], [place] [address] October, [facility] [address] [id number] [address] [place] [address], [place] [address] October, [facility] [address] [id number] [address] [place] [address], [place] [address] Aug, [facility] [address] [id number] [address] [place] [address], [place] [address] Mar, [facility] [address] [facility] [id number] [address] [place] [id number] 16 Nov, 2010 [facility] [address] [facility] [id number] [address] [place] [id number] May, [facility] [address] [facility] [id number] [address] [place] [phone] May, [facility] [address] [facility] [id number] [address] [place] [phone] Apr, [facility] [address] [facility] [id number] [address] [place] [phone] Mar, [facility] [address] [facility] [id number] [address] [place] [phone] Mar, IMMUNIZATIONS No Known Immunizations SOCIAL HISTORY Never Assessed REASON FOR VISIT PLAN OF CARE VITAL SIGNS Height 64 in 2014-08-13 Weight 147 lbs 2014-08-13 Temperature 99.1 degrees Fahrenheit 2014-08-13 Heart Rate 80 bpm 2014-08-13 Respiratory Rate 20 2014-08-13 Blood pressure systolic 122 mmHg 2014-08-13 Blood pressure diastolic 82 mmHg 2014-08-13 MEDICATIONS Unknown Medications RESULTS No Results PROCEDURES No Known procedures INSTRUCTIONS MEDICATIONS ADMINISTERED No Known Medications MEDICAL (GENERAL) HISTORY Type Description Date Medical History Severe spinal stenosis throu gh cervical spine CT and MRI done 10/2014 at [facility] with Neurosurgery at Medical History Migraine BEAR [...]
--- OUTSIDE RECORDS SUMMARY | 2019-06-19 05:04 | XMS REPORT ---
Author Author Sydnie Levine 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 Name Role Phone MARISABEL Levine Unavailable PROBLEMS Type Condition ICD9-CM Code ZDA47-GP Code Onset Dates Condition S tatus SNOMED Code Problem Abnormal CT scan, head R93.0 Active 686639477 Problem Bruising, spontaneous R23.3 Active 926810346 Problem Sensorineural hearing loss (SNHL) of both ears H90 .3 Active 539398735 Problem Arthralgia of hip, unspecified laterality M25.559 Active 92676947 Problem Night sweats R61 Active 5037557 0 Problem Grief F43.20 Active 02488403 Problem Hypertension I10 Active 7303802 3 Problem Major depressive disorder, recurrent episode, moderate F33.1 Active 563249366 Problem Imbalance R26.89 Active 257083551 Problem Age-related osteoporosis without current pathological fracture M81.0 Active 14952159 Problem Hormone replacement therapy Z79.890 Ac tive 915445112 Problem Ataxia R27.0 Active 19140754 Problem Bipolar 1 disorder, mixed F31.60 Acti ve 91867667 Problem Allergic rhinitis J30.9 Active 61 601863 Problem Hearing loss, unspecified laterality H91.90 Active 78166702 Problem Generalized anxiety disorder F41.1 A ctive 05404877 Problem History of colon polyps Z86.010 Active 413031358 Problem Hammer toe of right foot M20.41 Activ e 235525912 Problem Hematuria, unspecified type R31.9 Ac tive 91068956 Problem Fibromyalgia M79.7 Active 0770106 7 Problem Bladder spasm N32.89 Active 629539 006 Problem Acute left-sided low back pain with left-sided sciatica M54.42 Active 151746667 Problem Post menopausal syndrome N95.1 Activ e 705941332 Problem Hyperlipidemia, unspecified hyperlipidemia type E7 8.5 Active 43393196 Problem Sciatica of right side M54.31 Active 11390711 Problem Other chronic pain G89.29 Active 8 8740004 Problem Gastritis without bleeding, unspecified chronicity, unspecified gastritis type K29.70 Active 574381889 Problem Sciatica of left side M54.32 Active 94754196 Problem Plantar wart of right foot B07.0 Act mitchell [id number] Problem Slow transit constipation K59.01 Acti ve 27046385 Problem Tobacco use disorder F17.200 Active 974970763 ALLERGIES No Information ENCOUNTERS Encounter Location Date Diagnosis [facility], [place] [address] [facility] [id number] [address] [place] [phone] Feb, [place] [address] [address] [facility] [id number] [address] [place] [phone] Feb, [place] [address] [address] [facility] [id number] [address] [place] [phone] Feb, [place] [address] [address] [place] [id number] [place] [place] [phone] Feb, [place] [address] [address] [facility] [id number] [address] [place] [phone] Jan, Sciatica of right side M54.3 1 ; Low back pain M54.5 and Major depressive disorder, recurrent episode, moderate F33.1 [place] [address] [address] [place] [id number] [address] [place] [address] Jan, Bipolar 1 disorder, mixed F3 1.60 [place] [address] [address] [place] [id number] [address] [place] [address] Dec, Normal pelvic exam Z01.419 [place] [address] [address] [place] [id number] [address] [place] [address] Dec, Bipolar 1 disorder, mixed F3 1.60 [place] [address] [address] [place] [id number] [address] [place] [phone] Nov, Bipolar 1 disorder, mixed F3 1.60 [place] [address] [address] [place] [id number] [address] [place] [address] Nov, Bipolar 1 disorder, mixed F3 1.60 ; Generalized anxiety disorder F41.1 ; Tobacco use disorder F17.200 and 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 [facility], [place] [address] [facility] [id number] [address] [place] [id number] Nov, [facility] [place] [address] [facility] [id number] [address] [place] [id number] Nov, Bipolar 1 disorder, mixed F3 1.60 [facility] [place] [address] [facility] [id number] [address] [place] [id number] October, Bipolar 1 disorder, mixed F3 1.60 [facility], [place] [address] [facility] [id number] [address] [place] [id number] October, Bipolar 1 disorder, mixed F3 1.60 [place] [address] [address] [facility] [id number] [address] [place] [id number] October, [facility] [place] [address] [facility] [id number] [address] [place] [address] October, Bipolar 1 disorder, mixed F3 1.60 ; Generalized anxiety disorder F41.1 and Tobacco use disorder F17.200 [place] [address] [address] [place] [id number] [address] [place] [phone] Sep, [facility], [place] [address] [place] [id number] [address] [place] [id number] Sep, [facility] Z00.00 ; Major depressive disorder, recurrent episode, moderate F33.1 ; Allergic rhinitis J30.9 ; Bipolar 1 disorder, mixed F31.60 ; Fibromyalgia M79.7 ; Hyperlipidemia, unspecified hyperlipidemia type E78.5 ; Hormone replacement therapy Z79.890 ; Encounter for screening for lung cancer Z12.2 and Tobacco use disorder F17.200 [facility], [place] [address] [facility] [id number] [address] [place] [id number] Sep, Bipolar 1 disorder, mixed F3 1.60 [facility] [place] [address] [facility] [id number] [address] [place] [id number] Sep, Other chronic pain G89.29 ; Hyperlipidemia, unspecified hyperlipidemia type E78.5 ; Breast cancer screening Z12.31 and Post menopausal syndrome N95.1 [place] [address] [address] [place] [id number] [address] [place] [address] 16 Sep, 2018 Bipolar 1 disorder, mixed F3 1.60 [place] [address] [address] Sep, Bipolar 1 disorder, mixed F3 1.60 ; Generalized anxiety disorder F41.1 and Tobacco use disorder F17.200 [place] [address] [address] Sep, Gastritis without bleeding, unspecified chronicity, unspecified gastritis type K29.70 [place] [address] [address] Sep, Exercise counseling Z71.82 [place] [address] [address] Aug, Exercise counseling Z71.82 [place] [address] [address] Aug, Bipolar 1 disorder, mixed F3 1.60 [place] [address] [address] [place] [id number] [address] [place] [address] Aug, Exercise counseling Z71.82 [place] [address] [address] [place] [id number] [address] [place] [id number] Aug, Bipolar 1 disorder, mixed F3 1.60 [place] [address] [address] [place] [id number] [address] [place] [id number] 18 Aug, 2018 Gastritis without bleeding, unspecified chronicity, unspecified gastritis type K29.70 ; Tobacco abuse Z72.0 ; Generalized anxiety disorder F41.1 and Weight gain R63.5 [place] [address] [address] [place] [id number] [address] [place] [id number] 14 Aug, 2018 Bipolar 1 disorder, mixed F3 1.60 ; Generalized anxiety disorder F41.1 and Tobacco use disorder F17.200 [facility] [place] [address] [id number] [address] [place] [id number] Jul, Bipolar 1 disorder, mixed F3 1.60 [facility] [place] [address] [id number] [address] [place] [id number] Jul, [facility] [place] [address] [id number] [address] [place] [address] Jul, Bipolar 1 disorder, mixed F3 1.60 [facility] [place] [address] [id number] [address] [place] [address] Jul, Allergic rhinitis J30.9 ; Ma darion depressive disorder, recurrent episode, moderate F33.1 and Tobacco 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 [facility] [place] [address] [facility] [id number] [address] [place] [phone] Jun, [facility] [place] [address] [id number] [address] [place] [id number] Jun, [facility] [place] [address] [id number] [address] [place] [id number] Jun, Bipolar 1 disorder, mixed F3 1.60 [facility], [place] [address] [facility] [id number] [address] [place] [id number] Jun, Bipolar 1 disorder, mixed F3 1.60 [facility] [place] [address] [id number] [address] [place] [id number] Jun, Bipolar 1 disorder, mixed F3 1.60 [facility], [place] [address] [id number] [address] [place] [address] Jun, Generalized anxiety disorder F41.1 ; Tobacco abuse Z72.0 and Major depressive disorder, recurrent episode, moderate F33.1 [facility] [place] [address] [id number] [address] [place] [address] May, Bipolar 1 disorder, mixed F3 1.60 [facility] [place] [address] [facility] [id number] [address] [place] [address] May, Bipolar 1 disorder, mixed F3 1.60 and Generalized anxiety disorder F41.1 [facility] [place] [address] [facility] [id number] [address] [place] [address] May, Bipolar 1 disorder, mixed F3 1.60 [facility], [place] [address] [place] [id number] [address] [place] [id number] May, Allergic rhinitis J30.9 [facility], [place] [address] [place] [id number] [address] [place] [id number] May, Bipolar 1 disorder, mixed F3 1.60 [facility], [place] [address] [place] [id number] [address] [place] [id number] May, [facility], [place] [address] [facility] [id number] [address] [place] [address] Apr, Allergic rhinitis J30.9 ; Dy sfunction of both eustachian tubes H69.83 ; History of bladder surgery Z98.890 and Cervicalgia M54.2 [facility], [place] [address] [place] [id number] [address] [place] [phone] Mar, Bipolar 1 disorder, mixed F3 1.60 [facility], [place] [address] [place] [id number] [address] [place] [id number] Mar, [facility], [place] [address] [facility] [id number] [address] [place] [id number] Mar, Slow transit constipation K5 9.01 ; Encounter for immunization Z23 and Generalized anxiety disorder F41.1 [facility], [place] [address] [facility] [id number] [address] [place] [id number] Feb, Bipolar 1 disorder, mixed F3 1.60 [facility], [place] [address] [facility] [id number] [address] [place] [id number] Feb, Allergic rhinitis J30.9 [facility], [place] [address] [facility] [id number] [address] [place] [id number] Feb, Bipolar 1 disorder, mixed F3 1.60 [facility] [place] [address] [facility] [id number] [address] [place] [id number] 20 Feb, 2018 Bipolar 1 disorder, mixed F3 1.60 and Generalized anxiety disorder F41.1 [facility], [place] [address] [facility] [id number] [address] [place] [id number] 13 Feb, 2018 Bipolar 1 disorder, mixed F3 1.60 [facility] [place] [address] [facility] [id number] [address] [place] [id number] 11 Feb, 2018 Allergic rhinitis J30.9 [facility] [place] [address] [facility] [id number] [address] [place] [id number] 05 Feb, 2018 [facility] [place] [address] [facility] [id number] [address] [place] [id number] Jan, Bipolar 1 disorder, mixed F3 1.60 [facility], [place] [address] [facility] [id number] [address] [place] [id number] Jan, Low back pain M54.5 ; Hyperl ipidemia, unspecified hyperlipidemia type E78.5 and Bipolar 1 disorder, mixed F31.60 [facility], [place] [address] [facility] [id number] [address] [place] [phone] Jan, Bipolar 1 disorder, mixed F3 1.60 [facility] [place] [address] [facility] [id number] [address] [place] [phone] Jan, Bipolar 1 disorder, mixed F3 1.60 [facility] [place] [address] [facility] [id number] [address] [place] [phone] Jan, Bipolar 1 disorder, mixed F3 1.60 [facility] [place] [address] [facility] [id number] [address] [place] [id number] Jan, Bipolar 1 disorder, mixed F3 1.60 [facility] [place] [address] [facility] [id number] [address] [place] [id number] Dec, Bipolar 1 disorder, mixed F3 1.60 ; Generalized anxiety disorder F41.1 and 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 [facility] [place] [address] [facility] [id number] [address] [place] [id number] Dec, 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 Z79.899 [facility], [place] [address] [facility] [id number] [address] [place] [address] Dec, Bipolar 1 disorder, mixed F3 1.60 [facility] [place] [address] [facility] [id number] [address] [place] [id number] Dec, Bipolar 1 disorder, mixed F3 1.60 [facility] [place] [address] [facility] [id number] [address] [place] [id number] Nov, Bipolar 1 disorder, mixed F3 1.60 [facility], [place] [address] [facility] [id number] [address] [place] [id number] Nov, Bipolar 1 disorder, mixed F3 1.60 [place] [address] [address] [facility] [id number] [address] [place] [id number] Nov, Bipolar 1 disorder, mixed F3 1.60 [facility] [place] [address] [facility] [id number] [address] [place] [id number] Nov, Allergic rhinitis J30.9 [facility] [place] [address] [facility] [id number] [address] [place] [address] Nov, Allergic rhinitis J30.9 [facility], [place] [address] [facility] [id number] [address] [place] [phone] Nov, [facility], [place] [address] [facility] [id number] [address] [place] [address] Nov, Bipolar 1 disorder, mixed F3 1.60 [facility] [place] [address] [facility] [id number] [address] [place] [id number] Nov, Fibromyalgia M79.7 and Aller gic rhinitis J30.9 [facility] [place] [address] [facility] [id number] [address] [place] [phone] October, Bipolar 1 disorder, mixed F3 1.60 [facility] [address] [facility] [id number] [address] [place] [id number] October, Acute nasopharyngitis J00 [facility] [address] [facility] [id number] [address] [place] [id number] October, Bitten or stung by nonvenomo us insect and other nonvenomous arthropods, initial encounter W57.XXXA and Insect bite (nonvenomous) of abdominal wall, initial encounter S30.861A [facility] [place] [address] [facility] [id number] [address] [place] [address] October, Insect bite (nonvenomous) of abdominal wall, initial encounter S30.861A ; Bitten or stung by nonvenomous insect and other nonvenomous arthropods, initial encounter W57.XXXA ; Allergic rhinitis J30.9 and Low back pain M54.5 [facility] [place] [address] [facility] [id number] [address] [place] [id number] October, Bipolar 1 disorder, mixed F3 1.60 [facility] [place] [address] [facility] [id number] [address] [place] [phone] October, [facility] [place] [address] [facility] [id number] [address] [place] [address] October, [facility], [place] [address] [place] [id number] [address] [place] [address] October, Bipolar 1 disorder, mixed F3 1.60 [facility] [place] [address] [facility] [id number] [address] [place] [id number] Sep, Bipolar 1 disorder, mixed F3 1.60 [facility] [place] [address] [facility] [id number] [address] [place] [address] Sep, Other chronic pain G89.29 [facility] [place] [address] [facility] [id number] [address] [place] [phone] Sep, [facility] [place] [address] [facility] [id number] [address] [place] [address] Sep, Bipolar 1 disorder, mixed F3 1.60 [facility] [place] [address] [facility] [id number] [address] [place] [address] Sep, Allergic rhinitis J30.9 and Sciatica of left side M54.32 [facility] [place] [address] [facility] [id number] [address] [place] [address] Sep, Bipolar 1 disorder, mixed F3 1.60 [facility] [place] [address] [facility] [id number] [address] [place] [address] Sep, Bipolar 1 disorder, mixed F3 1.60 and Generalized anxiety disorder F41.1 [facility] [place] [address] [id number] [address] [place] [phone] Aug, [facility] [place] [address] [facility] [id number] [address] [place] [id number] Aug, Bipolar 1 disorder, mixed F3 1.60 [facility] [place] [address] [facility] [id number] [address] [place] [id number] Aug, Bipolar 1 disorder, mixed F3 1.60 [facility] [place] [address] [facility] [id number] [address] [place] [id number] Aug, [facility] [place] [address] [facility] [id number] [address] [place] [address] Aug, Generalized anxiety disorder F41.1 [facility] [place] [address] [facility] [id number] [address] [place] [id number] Aug, Bipolar 1 disorder, mixed F3 1.60 [facility] [place] [address] [facility] [id number] [address] [place] [id number] Aug, Plantar wart of right foot B 07.0 [facility] [place] [address] [facility] [id number] [address] [place] [id number] Aug, Bipolar 1 disorder, mixed F3 1.60 [facility] [place] [address] [facility] [id number] [address] [place] [id number] Jul, Bipolar 1 disorder, mixed F3 1.60 [facility] [place] [address] [facility] [id number] [address] [place] [id number] Jul, [facility] [place] [address] [facility] [id number] [address] [place] [id number] Jul, Bipolar 1 disorder, mixed F3 1.60 [facility] [place] [address] [facility] [id number] [address] [place] [id number] 09 Jul, 2017 Generalized anxiety disorder F41.1 [facility], [place] [address] [place] [id number] [address] [place] [id number] Jul, Bipolar 1 disorder, mixed F3 1.60 [facility], [place] [address] [place] [id number] [address] [place] [id number] Jul, Acute left-sided low back pa in with left-sided sciatica M54.42 [facility], [place] [address] [place] [id number] [address] [place] [id number] Jul, Coccydynia M53.3 [facility], [place] [address] [place] [id number] [address] [place] [id number] Jun, Bipolar 1 disorder, mixed F3 1.60 [facility] [address] [place] [id number] [address] [place] [phone] Jun, Acute nasopharyngitis J00 [facility] [place] [address] [place] [id number] [address] [place] [id number] Jun, Bipolar 1 disorder, mixed F3 1.60 [facility] [place] [address] [facility] [id number] [address] [place] [id number] Jun, Fibromyalgia M79.7 [facility] [place] [address] [facility] [id number] [address] [place] [id number] Jun, Bipolar 1 disorder, mixed F3 1.60 [facility] [place] [address] [place] [id number] [address] [place] [phone] Jun, Fibromyalgia M79.7 and Bipol ar 1 disorder, mixed F31.60 [facility] [place] [address] [place] [id number] [address] [place] [phone] May, Bipolar 1 disorder, mixed F3 1.60 ; Generalized anxiety disorder F41.1 and 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 Z79.899 [place] [address] [address] May, Bipolar 1 disorder, mixed F3 1.60 [facility] [address] [address] 14 May, 2017 Cough R05 and Body aches R52 [facility] [place] [address] [id number] 10 May, 2017 Bladder spasm N32.89 [address] cystitis without hematuria N30.00 [place] [address] [id number] 07 May, 2017 Bipolar 1 disorder, mixed F3 1.60 [place] [address] [address] 30 Apr, 2017 [place] [address] [address] Apr, Major depressive disorder, r ecurrent episode, moderate F33.1 and Encounter for immunization Z23 [place] [address] [id number] Apr, Bipolar 1 disorder, mixed F3 1.60 [place] [address] [address] Apr, Bipolar 1 disorder, mixed F3 1.60 [place] [address] [address] 16 Apr, 2017 Bipolar 1 disorder, mixed F3 1.60 [place] [address] [address] Apr, Yeast vaginitis B37.3 [place] [address] [address] 09 Apr, 2017 Bipolar 1 disorder, mixed F3 1.60 [facility] [address] [facility] [id number] [address] [place] [phone] 07 Apr, [address] for immunization Z23 [facility] [place] [address] [facility] [facility] [id number] [address] [place] [address] Apr, Bipolar 1 disorder, mixed F3 1.60 [facility] [place] [address] [place] [id number] [address] [place] [address] Mar, Bipolar 1 disorder, mixed F3 1.60 [facility] [place] [address] [place] [id number] [address] [place] [id number] Mar, Bipolar 1 disorder, mixed F3 1.60 [facility] [place] [address] [place] [id number] [address] [place] [id number] Mar, Imbalance R26.89 and Encount er for immunization Z23 [facility] [place] [address] [place] [id number] [address] [place] [address] Mar, Generalized anxiety disorder F41.1 [facility] [place] [address] [id number] [address] [place] [address] Mar, Bipolar 1 disorder, mixed F3 1.60 [facility] [place] [address] [id number] [address] [place] [address] Mar, Generalized anxiety disorder F41.1 [facility] [place] [address] [place] [id number] [address] [place] [address] Mar, Bipolar 1 disorder, mixed F3 1.60 [facility] [place] [address] [place] [id number] [address] [place] [address] Mar, Bipolar 1 disorder, mixed F3 1.60 [facility] [place] [address] [place] [id number] [address] [place] [address] Feb, Bipolar 1 disorder, mixed F3 1.60 [facility] [place] [address] [place] [id number] [address] [place] [address] Feb, Bipolar 1 disorder, mixed F3 1.60 and Generalized anxiety disorder F41.1 [facility] [place] [address] [facility] [id number] [address] [place] [address] Feb, Gastritis without bleeding, unspecified chronicity, unspecified gastritis type K29.70 ; Hammer toe of right foot M20.41 and Other viral warts B07.8 [place] [address] [address] [facility] [id number] [address] [place] [address] Feb, Bipolar 1 disorder, mixed F3 1.60 [place] [address] [address] [facility] [id number] [address] [place] [id number] 13 Feb, 2017 Bipolar 1 disorder, mixed F3 1.60 [place] [address] [address] [facility] [id number] [address] [place] [id number] 05 Feb, 2017 Bipolar 1 disorder, mixed F3 1.60 [place] [address] [address] [facility] [id number] [address] [place] [address] Jan, Encounter for screening mamm ogram for breast cancer Z12.31 ; Other viral warts B07.8 and Allergic rhinitis J30.9 [place] [address] [address] [facility] [id number] [address] [place] [address] Jan, Bipolar 1 disorder, mixed F3 1.60 [place] [address] [address] [facility] [id number] [address] [place] [id number] Jan, Bipolar 1 disorder, mixed F3 1.60 [place] [address] [address] [facility] [id number] [address] [place] [address] Jan, [place] [address] [address] [facility] [id number] [address] [place] [address] Jan, Bipolar 1 disorder, mixed F3 1.60 [place] [address] [address] [facility] [id number] [address] [place] [address] Jan, Bipolar 1 disorder, mixed F3 1.60 [place] [address] [address] [facility] [id number] [address] [place] [address] Jan, Allergic rhinitis J30.9 ; He maturia R31.9 and Colon cancer screening Z12.11 [facility] [place] [address] [facility] [id number] [address] [place] [address] Dec, Bipolar 1 disorder, mixed F3 1.60 [facility] [place] [address] [facility] [id number] [address] [place] [address] Dec, Bipolar 1 disorder, mixed F3 1.60 ; Generalized anxiety disorder F41.1 and 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 Z79.899 [facility] [place] [address] [facility] [id number] [address] [place] [address] Dec, Bipolar 1 disorder, mixed F3 1.60 [facility] [place] [address] [facility] [id number] [address] [place] [address] Dec, Bipolar 1 disorder, mixed F3 1.60 [facility] [place] [address] [place] [id number] [address] [place] [address] Dec, Bipolar 1 disorder, mixed F3 1.60 [facility] [place] [address] [facility] [id number] [address] [place] [address] Dec, Low back pain M54.5 and Recu rrent urinary tract infection N39.0 [facility] [place] [address] [facility] [id number] [address] [place] [address] Nov, Bipolar 1 disorder, mixed F3 1.60 [facility] [place] [address] [facility] [id number] [address] [place] [address] Nov, Bipolar 1 disorder, mixed F3 1.60 [facility] [place] [address] [facility] [id number] [address] [place] [address] Nov, Bipolar 1 disorder, mixed F3 1.60 [facility] [place] [address] [facility] [id number] [address] [place] [address] Nov, Bipolar 1 disorder, mixed F3 1.60 [facility] [place] [address] [facility] [id number] [address] [place] [address] Nov, [facility] [place] [address] [address] 08 Nov, 2016 Anesthesia of skin R20.0 ; F requent UTI N39.0 ; Tobacco abuse Z72.0 and Colon cancer screening Z12.11 [place] [address] [address] Nov, Bipolar 1 disorder, mixed F3 1.60 [place] [address] [place] [id number] October, Bipolar 1 disorder, mixed F3 1.60 [place] [address] [address] October, Bipolar 1 disorder, mixed F3 1.60 [place] [address] [address] October, Bipolar 1 disorder, mixed F3 1.60 [place] [address] [address] October, Bipolar 1 disorder, mixed F3 1.60 [place] [address] [address] October, Bipolar 1 disorder, mixed F3 1.60 [place] [address] [address] October, Cervicalgia M54.2 and Bipola r 1 disorder, mixed F31.60 [place] [address] [address] October, Hypertension I10 ; Hyperlipi demia, unspecified hyperlipidemia type E78.5 and Family history of thyroid disease Z83.49 [place] [address] [address] October, [place] [address] [address] October, Hypertension I10 ; Hyperlipi demia, unspecified hyperlipidemia type E78.5 and Family history of thyroid problem Z83.49 [place] [address] [facility] [id number] [address] [place] [address] October, Bipolar 1 disorder, mixed F3 1.60 [facility] [place] [address] [facility] [id number] [address] [place] [address] Sep, Bipolar 1 disorder, mixed F3 1.60 [facility] [place] [address] [facility] [id number] [address] [place] [address] Sep, Bipolar 1 disorder, mixed F3 1.60 [facility] [place] [address] [facility] [id number] [address] [place] [address] Sep, Bipolar 1 disorder, mixed F3 1.60 [place] [address] [place] [id number] [address] [place] [address] Sep, History of colon polyps Z86. 010 and Hematochezia K92.1 [place] [address] [address] [place] [id number] [address] [place] [address] Sep, Major depressive disorder, r ecurrent episode, moderate F33.1 [facility] [place] [address] [facility] [id number] [address] [place] [address] Sep, Bipolar 1 disorder, mixed F3 1.60 [facility] [place] [address] [facility] [id number] [address] [place] [address] Aug, Hot flashes due to menopause N95.1 [facility] [place] [address] [facility] [id number] [address] [place] [address] Aug, Bipolar 1 disorder, mixed F3 1.60 [facility] [place] [address] [facility] [id number] [address] [place] [address] Aug, [facility] [place] [address] [facility] [id number] [address] [place] [address] Aug, Bipolar 1 disorder, mixed F3 1.60 [facility] [place] [address] [facility] [id number] [address] [place] [address] Aug, Bipolar 1 disorder, mixed F3 1.60 [place] [address] [address] Aug, Hot flashes due to menopause N95.1 ; Cervicalgia M54.2 and Ataxia R27.0 [place] [address] [address] Jul, Bipolar 1 disorder, mixed F3 1.60 [place] [address] [place] [address] Jul, Bipolar 1 disorder, mixed F3 1.60 [place] [address] Jul, Bipolar 1 disorder, mixed F3 1.60 [place] [address] Jul, Bipolar 1 disorder, mixed F3 1.60 [place] [address] [address] Jul, Bipolar 1 disorder, mixed F3 1.60 [place] [address] [address] Jul, Cervicalgia M54.2 ; Tremor R 25.1 ; Hearing abnormally acute, unspecified laterality H93.239 ; Alopecia L65.9 ; Encounter for immunization Z23 and Family history of thyroid disease Z83.49 [place] [address] [address] Jul, Bipolar 1 disorder, mixed F3 1.60 [place] [address] [address] Jun, [place] [address] [place] [id number] Jun, Hearing disorder, unspecifie d laterality H93.299 [place] [address] [address] Jun, Bipolar 1 disorder, mixed F3 1.60 [place] [address] [id number] [address] [place] [address] Jun, Bipolar 1 disorder, mixed F3 1.60 [facility] [place] [address] [id number] [address] [place] [address] Jun, Allergic rhinitis J30.9 [facility] [place] [address] [facility] [id number] [address] [place] [address] Jun, Bipolar 1 disorder, mixed F3 1.60 [facility] [place] [address] [id number] [address] [place] [address] Jun, Bipolar 1 disorder, mixed F3 1.60 [facility] [place] [address] [id number] [address] [place] [address], [place] [address] Jun, Allergic rhinitis J30.9 [facility] [place] [address] [facility] [id number] [address] [place] [address] Jun, Allergic rhinitis J30.9 [facility] [place] [address] [facility] [id number] [address] [place] [address] Jun, Bipolar 1 disorder, mixed F3 1.60 [facility] [place] [address] [facility] [id number] [address] [place] [address] May, Bipolar 1 disorder, mixed F3 1.60 [facility] [place] [address] [facility] [id number] [address] [place] [address] May, Bipolar 1 disorder, mixed F3 1.60 [facility] [place] [address] [facility] [id number] [address] [place] [address] May, [facility] [place] [address] [facility] [id number] [address] [place] [address] May, Bipolar 1 disorder, mixed F3 1.60 [facility] [place] [address] [facility] [id number] [address] [place] [address] May, Bipolar 1 disorder, mixed F3 1.60 [facility] [place] [address] [facility] [id number] [address] [place] [address] May, [facility] [place] [address] [facility] [id number] [address] [place] [address] May, [facility] [place] [address] [facility] [id number] [address] [place] [address] May, [facility] [place] [address] [facility] [id number] [address] [place] [address] May, Abdominal pain, unspecified location R10.9 [facility] [place] [address] [place] [id number] [address] [place] [address] May, [facility] [place] [address] [place] [id number] [place] [place] [address] Apr, Hematuria R31.9 ; Ataxia R27 .0 and Hearing loss, unspecified laterality H91.90 [facility] [place] [address] [place] [id number] [place] [address] Apr, Bipolar 1 disorder, mixed F3 1.60 [facility] [address] [place] [id number] [address] [place] [address] Apr, Acute effusion of both middl e ears H65.193 [facility] [place] [address] [address] Apr, Hematuria R31.9 and Pyelonep hritis N12 [facility] [place] [address] [place] [id number] [address] [place] [address] Apr, [facility] [place] [address] [place] [id number] [address] [place] [address] Mar, Bipolar 1 disorder, mixed F3 1.60 [facility] [place] [address] [place] [id number] [address] [place] [address] Mar, [facility] [place] [address] [place] [id number] [place] [place] [address] Mar, Bipolar 1 disorder, mixed F3 1.60 [facility] [place] [address] [place] [id number] [address] [place] [address] Mar, Bipolar 1 disorder, mixed F3 1.60 [place] [address] [place] [id number] [address] [place] [address] Mar, Encounter for immunization Z 23 and Gastritis without bleeding, unspecified chronicity, unspecified gastritis type K29.70 [place] [address] [address] [place] [id number] [address] [place] [address] Mar, Bipolar 1 disorder, mixed F3 1.60 and Grief F43.20 [place] [address] [place] [id number] [place] [place] [address] Mar, Gastritis without bleeding, unspecified chronicity, unspecified gastritis type K29.70 [place] [address] [address] Mar, Bipolar 1 disorder, mixed F3 1.60 [place] [address] [address] Mar, Gastritis without bleeding, unspecified chronicity, unspecified gastritis type K29.70 [place] [address] [address] [place] [id number] [address] [place] [address] Mar, [place] [address] [address] Feb, Bipolar 1 disorder, mixed F3 1.60 [place] [address] [place] [id number] [address] [place] [address] Feb, Bipolar 1 disorder, mixed F3 1.60 and Grief F43.20 [place] [address] [place] [id number] [address] [place] [address] Feb, Gastritis without bleeding, unspecified chronicity, unspecified gastritis type K29.70 [place] [address] [place] [id number] [address] [place] [address] 14 Feb, 2016 Bipolar 1 disorder, mixed F3 1.60 [facility] [address] [place] [id number] [address] [place] [address] Feb, Gastroesophageal reflux dise ase, esophagitis presence not specified K21.9 [facility] [place] [address] [place] [id number] [address] [place] [address] Jan, Bipolar 1 disorder, mixed F3 1.60 [facility] [place] [address] [place] [id number] [address] [place] [id number] Jan, Bipolar 1 disorder, mixed F3 1.60 and Unsteady gait R26.81 [place] [address] [place] [id number] [address] [place] [address] Jan, Bipolar 1 disorder, mixed F3 1.60 [place] [address] Jan, Bipolar 1 disorder, mixed F3 1.60 and 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 Z79.899 [place] [address] [place] [address] Jan, Bipolar 1 disorder, mixed F3 1.60 [place] [address] [place] [id number] [address] [place] [id number] Jan, Bipolar 1 disorder, mixed F3 1.60 [place] [address] [address] [place] [id number] [address] [place] [address] Jan, Bipolar 1 disorder, mixed F3 1.60 ; Grief F43.20 and 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 [place] [address] [place] [address] Jan, Bipolar 1 disorder, mixed F3 1.60 [place] [address] [place] [id number] [address] [place] [address] Dec, [place] [address] [place] [address] Dec, Bipolar 1 disorder, mixed F3 1.60 ; Vitamin D deficiency, unspecified E55.9 ; H/O allergic rhinitis Z87.09 ; Other chronic pain G89.29 and Dorsalgia, unspecified M54.9 [facility] [place] [address] [id number] [address] [place] [address] Dec, [facility] [place] [address] [facility] [id number] [address] [place] [address] Dec, Bipolar 1 disorder, mixed F3 1.60 [facility] [place] [address] [facility] [id number] [address] [place] [address] Dec, Major depressive disorder, r ecurrent episode, moderate F33.1 [place] [address] [address] [facility] [id number] [address] [place] [id number] Dec, Major depressive disorder, r ecurrent episode, moderate F33.1 [place] [address] [address] [facility] [id number] [address] [place] [address] Nov, [place] [address] [address] [facility] [id number] [address] [place] [address] Nov, Bipolar 1 disorder, mixed F3 1.60 [place] [address] [address] [facility] [id number] [address] [place] [address] Nov, Major depressive disorder, r ecurrent episode, moderate F33.1 [place] [address] [address] [facility] [id number] [address] [place] [address] Nov, Cervicalgia M54.2 ; Arthralg ia of hip, unspecified laterality M25.559 ; Allergic rhinitis J30.9 and Hormone replacement therapy Z79.890 [facility] [address] [facility] [id number] [address] [place] [address] Nov, Other seasonal allergic rhin itis J30.2 [facility] [place] [address] [id number] [address] [place] [address] October, Major depressive disorder, r ecurrent episode, moderate F33.1 [facility] [place] [address] [facility] [id number] [address] [place] [address] October, Major depressive disorder, r ecurrent episode, moderate F33.1 and Arthralgia of hip, unspecified laterality M25.559 [place] [address] [address] [facility] [id number] [address] [place] [address] October, Grief F43.20 ; Hypertension I10 ; Hyperlipidemia, unspecified hyperlipidemia type E78.5 ; Other chronic pain G89.29 and Allergic rhinitis, unspecified allergic rhinitis type J30.9 [place] [address] [address] [facility] [id number] [address] [place] [id number] October, Major depressive disorder, r ecurrent episode, moderate F33.1 [place] [address] [address] [facility] [id number] [address] [place] [id number] Sep, Major depressive disorder, r ecurrent episode, moderate F33.1 [place] [address] [address] [place] [id number] [address] [place] [id number] Sep, [place] [address] [address] [place] [id number] [address] [place] [id number] Sep, Major depressive disorder, r ecurrent episode, moderate F33.1 [place] [address] [address] [place] [id number] [address] [place] [id number] Sep, Grief F43.20 [place] [address] [address] [place] [id number] [address] [place] [id number] Aug, Major depressive disorder, r ecurrent episode, moderate F33.1 [place] [address] [address] [place] [id number] [address] [place] [id number] Aug, Bipolar 1 disorder, mixed F3 1.60 [place] [address] [address] [place] [id number] [address] [place] [id number] Aug, Allergic rhinitis J30.9 ; Ce rvicalgia M54.2 and Low back pain M54.5 [place] [address] [address] [place] [id number] [address] [place] [id number] Aug, Major depressive disorder, r ecurrent episode, moderate F33.1 [facility] [address] [place] [id number] [address] [place] [id number] Aug, Sinusitis J32.9 and Tobacco 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 [facility] [place] [address] [facility] [id number] [address] [place] [id number] Aug, [facility] [place] [address] [place] [id number] [address] [place] [id number] Aug, Depressive disorder, not els ewhere classified F32.9 ; Hormone replacement therapy Z79.[address] scan, head R93.0 [facility] [place] [address] [facility] [id number] [address] [place] [id number] Aug, Major depressive disorder, r ecurrent episode, moderate F33.1 [facility] [place] [address] [place] [id number] [address] [place] [id number] Jul, Major depressive disorder, r ecurrent episode, moderate F33.1 [place] [address] [address] [place] [id number] [address] [place] [id number] Jul, Abdominal pain R10.9 and Hyp ertension I10 [facility] [place] [address] [facility] [id number] [address] [place] [id number] Jul, [facility] [place] [address] [facility] [id number] [address] [place] [id number] Jul, Major depressive disorder, r ecurrent episode, moderate F33.1 [facility] [place] [address] [place] [id number] [address] [place] [id number] Jul, [facility] [place] [address] [facility] [id number] [address] [place] [id number] Jul, [facility] [place] [address] [facility] [id number] [address] [place] [id number] Jun, [facility] [place] [address] [place] [id number] [address] [place] [id number] Jun, Depressive disorder, not els ewhere classified F32.9 [facility] [place] [address] [place] [id number] [address] [place] [phone] Jun, [facility] [place] [address] [id number] [address] [place] [id number] Jun, [facility] [place] [address] [id number] [address] [place] [id number] Jun, Arthralgia of hip, unspecifi ed laterality M25.559 ; Bruising, spontaneous R23.3 and Night sweats R61 [facility] [place] [address] [id number] [address] [place] [id number] Jun, [facility] [facility] [place] [address] [id number] [address] [place] [address] Jun, [facility] [place] [address] [id number] [address] [place] [address] May, [facility] [place] [address] [id number] [address] [place] [address] May, Myalgia M79.1 and Screening, lipid Z13.220 [facility] [place] [address] [facility] [id number] [address] [place] [address] Apr, Status post cervical spinal fusion Z98.1 ; Fibromyalgia M79.7 and Unsteady gait R26.81 [facility] [place] [address] [id number] [address] [place] [address] Nov, [facility] [place] [address] [id number] [address] [place] [address] Nov, [facility] [place] [address] [id number] [address] [place] [address] October, [facility] [place] [address] [id number] [address] [place] [address] October, [facility] [place] [address] [facility] [id number] [address] [place] [address] October, [facility] [place] [address] [facility] [id number] [address] [place] [address] October, [facility] [place] [address] [id number] [address] [place] [address] October, [facility] [address] [id number] [address] [place] [address] October, Dysuria 788.1 ; Nausea 787.0 2 and Urinary tract infection 599.0 [facility] [address] [id number] [address] [place] [address], [place] [address] Sep, [facility] [address] [id number] [address] [place] [address] Sep, [facility] [address] [id number] [address] [place] [address], [place] [address] Aug, [facility] [address] [id number] [address] [place] [phone] Aug, [facility] [address] [id number] [address] [place] [address] Aug, [facility] [address] [id number] [address] [place] [address] Aug, [facility] [address] [id number] [address] [place] [address] Aug, [facility] [address] [id number] [address] [place] [address] Aug, [facility] [address] [id number] [address] [place] [address] Aug, [facility] [address] [id number] [address] [place] [address] Aug, [facility] [address] [id number] [address] [place] [address] Aug, [facility] [address] [id number] [address] [place] [address] Aug, [facility] [address] [id number] [address] [place] [address] Aug, [facility] [address] [id number] [address] [place] [address], [place] [address] 13 Aug, 2014 [facility] [address] [id number] [address] [place] [address], [place] [address] 13 Aug, 2014 [facility] [address] [id number] [address] [place] [address], [place] [address] 11 Aug, 2014 [facility] [address] [id number] [address] [place] [address], [place] [address] 11 Aug, 2014 [facility] [address] [id number] [address] [place] [address], [place] [address] 06 Aug, 2014 [facility] [address] [id number] [address] [place] [address], [place] [address] 06 Aug, 2014 [facility] [address] [id number] [address] [place] [address], [place] [address] 05 Aug, 2014 [facility] [address] [id number] [address] [place] [address], [place] [address] 05 Aug, 2014 [facility] [address] [id number] [address] [place] [address], [place] [address] 04 Aug, 2014 [facility] [address] [id number] [address] [place] [address], [place] [address] Aug, [facility] [address] [id number] [address] [place] [address], [place] [address] Aug, [facility] [address] [id number] [address] [place] [address], [place] [address] Jul, 2014 [facility] [address] [id number] [address] [place] [address], [place] [address] Jul, [facility] [address] [id number] [address] [place] [address], [place] [address] Jul, [facility] [address] [id number] [address] [place] [address], [place] [address] Jul, 2014 [facility] [address] [id number] [address] [place] [address], [place] [address] Jul, 2014 [facility] [address] [id number] [address] [place] [address], [place] [address] Jul, 2014 [facility] [address] [id number] [address] [place] [address], [place] [address] Jul, 2014 [facility] [address] [id number] [address] [place] [address], [place] [address] Jul, 2014 [facility] [address] [id number] [address] [place] [address], [place] [address] Jul, 2014 [facility] [address] [id number] [address] [place] [address], [place] [address] Jul, 2014 [facility] [address] [id number] [address] [place] [address], [place] [address] Jul, 2014 [facility] [address] [id number] [address] [place] [address], [place] [address] Jul, 2014 [facility] [address] [id number] [address] [place] [address], [place] [address] Jul, [facility] [address] [id number] [address] [place] [address], [place] [address] Jul, [facility] [address] [id number] [address] [place] [address], [place] [address] Jun, [facility] [address] [id number] [address] [place] [address], [place] [address] Jun, [facility] [address] [id number] [address] [place] [address] Jun, [facility] [address] [id number] [address] [place] [address] Jun, [facility] [address] [id number] [address] [place] [address] Jun, [facility] [address] [id number] [address] [place] [address] Jun, [facility] [address] [id number] [address] [place] [address], [place] [address] May, [facility] [address] [id number] [address] [place] [address], [place] [address] May, [facility] [address] [id number] [address] [place] [address], [place] [address] May, [facility] [address] [id number] [address] [place] [address], [place] [address] May, [facility] [address] [id number] [address] [place] [address], [place] [address] May, [facility] [address] [id number] [address] [place] [address], [place] [address] May, [facility] [address] [id number] [address] [place] [address], [place] [address] Apr, [facility] [address] [id number] [address] [place] [address], [place] [address] Apr, [facility] [address] [id number] [address] [place] [address], [place] [address] Apr, [facility] [address] [id number] [address] [place] [address], [place] [address] Apr, [facility] [address] [id number] [address] [place] [address], [place] [address] Apr, [facility] [address] [id number] [address] [place] [address], [place] [address] Apr, [facility] [address] [id number] [address] [place] [address], [place] [address] Mar, [facility] [address] [id number] [address] [place] [address], [place] [address] Mar, [facility] [address] [id number] [address] [place] [address], [place] [address] Mar, [facility] [address] [id number] [address] [address] Mar, [facility] [address] [id number] [address] [place] [address], [place] [address] Mar, 2013 [facility] [address] [id number] [address] [place] [address], [place] [address] Mar, [facility] [address] [id number] [address] [place] [address], [place] [address] Mar, 2013 [facility] [address] [id number] [address] [place] [address], [place] [address] Mar, 2013 [facility] [address] [id number] [address] [place] [address], [place] [address] Mar, [facility] [address] [id number] [address] [place] [address], [place] [address] Mar, 2013 [facility] [address] [id number] [address] [place] [address], [place] [address] Mar, [facility] [address] [id number] [address] [place] [address], [place] [address] Mar, [facility] [address] [id number] [address] [place] [address], [place] [address] 30 Feb, 2013 [facility] [address] [id number] [address] [place] [address], [place] [address] 29 Sep, 2013 [facility] [address] [id number] [address] [place] [address], [place] [address] 29 Sep, 2013 [facility] [address] [id number] [address] [place] [address] 23 Sep, 2013 [facility] [address] [id number] [address] [place] [address], [place] [address] 23 Sep, 2013 [facility] [address] [id number] [address] [place] [address], [place] [address] 08 Feb, 2013 [facility] [address] [id number] [address] [place] [address], [place] [address] 08 Feb, 2013 [facility] [address] [id number] [facility] [place] [address] Jan, [facility] [address] [id number] [facility] [place] [address] Jan, [facility] [address] [id number] [facility] [place] [address] Jan, [facility] [address] [id number] [address] [place] [address], [place] [address] Dec, [facility] [address] [id number] [address] [place] [address], [place] [address] Dec, [facility] [address] [id number] [address] [place] [address], [place] [address] Dec, [facility] [address] [id number] [address] [place] [address], [place] [address] Dec, [facility] [address] [id number] [address] [place] [address], [place] [address] Sep, [facility] [address] [id number] [address] [place] [address], [place] [address] Sep, [facility] [address] [id number] [address] [place] [address], [place] [address] Sep, [facility] [address] [id number] [address] [place] [address], [place] [address] Sep, [facility] [address] [id number] [address] [place] [address], [place] [address] Sep, [facility] [address] [id number] [address] [place] [address], [place] [address] Sep, [facility] [address] [id number] [address] [place] [address], [place] [address] Sep, [facility] [address] [id number] [address] [place] [address], [place] [address] Sep, [facility] [address] [id number] [address] [place] [address], [place] [address] Aug, [facility] [address] [id number] [address] [place] [address], [place] [address] Aug, [facility] [address] [id number] [address] [place] [address], [place] [address] May, [facility] [address] [id number] [address] [place] [address], [place] [address] May, [facility] [address] [id number] [address] [place] [address], [place] [address] Apr, [facility] [address] [id number] [address] [place] [address], [place] [address] Apr, [facility] [address] [id number] [address] [place] [address], [place] [address] Apr, [facility] [address] [id number] [address] [place] [address], [place] [address] Apr, [facility] [address] [id number] [address] [place] [address], [place] [address] Apr, [facility] [address] [id number] [address] [place] [address], [place] [address] Apr, [facility] [address] [id number] [address] [place] [address], [place] [address] May, [facility] [address] [id number] [address] [place] [address], [place] [address] 18 May, 2012 [facility] [address] [id number] [address] [place] [address], [place] [address] 15 May, 2012 [facility] [address] [id number] [address] [place] [address], [place] [address] 15 May, 2012 [facility] [address] [id number] [address] [place] [address], [place] [address] 13 May, 2012 [facility] [address] [id number] [address] [place] [address], [place] [address] 13 May, 2012 [facility] [address] [id number] [address] [place] [address] 13 Apr, 2012 [facility] [address] [id number] [address] [place] [address], [place] [address] 13 Apr, 2012 [facility] [address] [id number] [address] [place] [address] 08 Apr, 2012 [facility] [address] [id number] [address] [place] [address], [place] [address] Apr, [facility] [address] [id number] [address] [place] [address] 08 Apr, 2012 [facility] [address] [id number] [address] [place] [address], [place] [address] Apr, [facility] [address] [id number] [address] [place] [address], [place] [address] Apr, [facility] [address] [id number] [address] [place] [address], [place] [address] Apr, [facility] [address] [id number] [address] [place] [address], [place] [address] Apr, [facility] [address] [id number] [address] [place] [address] Apr, [facility] [address] [id number] [address] [place] [address] Mar, [facility] [address] [id number] [address] [place] [address] Mar, [facility] [address] [id number] [address] [place] [address] Mar, [facility] [address] [id number] [address] [place] [address] Mar, [facility] [address] [id number] [address] [place] [address], [place] [address] Mar, [facility] [address] [id number] [address] [place] [address] Mar, [facility] [address] [id number] [facility] [place] [address] Mar, [facility] [address] [id number] [address] [place] [address], [place] [address] Mar, [facility] [address] [id number] [address] [place] [address], [place] [address] Mar, [facility] [address] [id number] [address] [place] [address], [place] [address] 25 Feb, 2012 [facility] [address] [id number] [address] [place] [address], [place] [address] 16 Feb, 2012 [facility] [address] [id number] [address] [place] [address], [place] [address] Feb, [facility] [address] [id number] [address] [place] [address], [place] [address] Jan, [facility] [address] [id number] [address] [place] [address], [place] [address] Jan, [facility] [address] [id number] [address] [place] [address], [place] [address] Jan, [facility] [address] [id number] [address] [place] [address], [place] [address] Jan, [facility] [address] [id number] [address] [place] [address], [place] [address] Jan, [facility] [address] [id number] [address] [place] [address], [place] [address] Jan, [facility] [address] [id number] [address] [place] [address], [place] [address] 16 Jan, 2012 [facility] [address] [id number] [address] [place] [address], [place] [address] Jan, [facility] [address] [id number] [address] [place] [address], [place] [address] Jan, [facility] [address] [id number] [address] [place] [address], [place] [address] Jan, [facility] [address] [id number] [address] [place] [address], [place] [address] Dec, [facility] [address] [id number] [address] [place] [address], [place] [address] Dec, [facility] [address] [id number] [address] [place] [address], [place] [address] Dec, [facility] [address] [id number] [address] [place] [address], [place] [address] Dec, [facility] [address] [id number] [address] [place] [address], [place] [address] Nov, [facility] [address] [id number] [address] [place] [address], [place] [address] Nov, [facility] [address] [id number] [address] [place] [address], [place] [address] Nov, [facility] [address] [id number] [address] [place] [address], [place] [address] October, [facility] [address] [id number] [address] [place] [address], [place] [address] October, [facility] [address] [id number] [address] [place] [address], [place] [address] October, [facility] [address] [id number] [address] [place] [address], [place] [address] October, [facility] [address] [id number] [address] [place] [address], [place] [address] October, [facility] [address] [id number] [address] [place] [address], [place] [address] October, [facility] [address] [id number] [address] [place] [address], [place] [address] Aug, [facility] [address] [id number] [address] [place] [address], [place] [address] Mar, [facility] [address] [id number] [address] [place] [id number] 16 Nov, 2010 [facility] [place] [address] [facility] [id number] [address] [place] [phone] May, [facility] [place] [address] [facility] [id number] [address] [place] [phone] May, [facility] [place] [address] [facility] [id number] [address] [place] [phone] Apr, [facility] [place] [address] [facility] [id number] [address] [place] [id number] Mar, [facility] [place] [address] [facility] [id number] [address] [place] [id number] Mar, IMMUNIZATIONS No Known Immunizations SOCIAL HISTORY Never Assessed REASON FOR VISIT PLAN OF CARE VITAL SIGNS MEDICATIONS Unknown Medications RESULTS No Results PROCEDURES No Known procedures INSTRUCTIONS MEDICATIONS ADMINISTERED No Known Medications MEDICAL (GENERAL) HISTORY Type Description Date Medical History Severe spinal stenosis [facility] cervical spine CT and MRI done 10/2014 [...]
--- OUTSIDE RECORDS SUMMARY | 2019-06-19 05:04 | XMS REPORT ---
Author Author Sydnie HANCOCK [facility] Address [address] [place] [address] Care Team Providers Care Election Judge Name Role Phone NAHOMY HANCOCK Unavailable PROBLEMS Type Condition ICD9-CM Code SQL49-VI Code Onset Dates Condition S tatus SNOMED Code Problem Abnormal CT scan, head R93.0 Active 673413685 Problem Bruising, spontaneous R23.3 Active 812249360 Problem Sensorineural hearing loss (SNHL) of both ears H90 .3 Active 930494410 Problem Arthralgia of hip, unspecified laterality M25.559 Active 22994884 Problem Night sweats R61 Active 6535906 0 Problem Grief F43.20 Active 74539170 Problem Hypertension I10 Active 7672333 3 Problem Major depressive disorder, recurrent episode, moderate F33.1 Active 300919470 Problem Imbalance R26.89 Active 940775687 Problem Age-related osteoporosis without current pathological fracture M81.0 Active 41970389 Problem Hormone replacement therapy Z79.890 Ac tive 796702477 Problem Ataxia R27.0 Active 23620918 Problem Bipolar 1 disorder, mixed F31.60 Acti ve 06852630 Problem Allergic rhinitis J30.9 Active 61 242572 Problem Hearing loss, unspecified laterality H91.90 Active 03189883 Problem Generalized anxiety disorder F41.1 A ctive 07573676 Problem History of colon polyps Z86.010 Active 494098800 Problem Hammer toe of right foot M20.41 Activ e 764613241 Problem Hematuria, unspecified type R31.9 Ac tive 47233706 Problem Fibromyalgia M79.7 Active 4005142 7 Problem Bladder spasm N32.89 Active 484968 006 Problem Acute left-sided low back pain with left-sided sciatica M54.42 Active 977519604 Problem Post menopausal syndrome N95.1 Activ e 653692112 Problem Hyperlipidemia, unspecified hyperlipidemia type E7 8.5 Active 78369242 Problem Sciatica of right side M54.31 Active 94976515 Problem Other chronic pain G89.29 Active 8 1604630 Problem Gastritis without bleeding, unspecified chronicity, unspecified gastritis type K29.70 Active 427365566 Problem Sciatica of left side M54.32 Active 11014506 Problem Plantar wart of right foot B07.0 Act mitchell [id number] Problem Slow transit constipation K59.01 Acti ve 34329378 Problem Tobacco use disorder F17.200 Active 370958232 ALLERGIES No Information ENCOUNTERS Encounter Location Date Diagnosis [place] [address] [place] [id number] [place] [address] Mar, [place] [address] [address] Feb, [place] [address] [place] [id number] [place] [address] Feb, [place] [address] [address] Feb, [place] [address] [place] [id number] [place] [address] Feb, Bipolar 1 disorder, mixed F3 1.60 [place] [address] [address] Jan, Sciatica of right side M54.3 1 ; Low back pain M54.5 and Major depressive disorder, recurrent episode, moderate F33.1 [place] [address] [place] [id number] [address] [place] [address] Jan, Bipolar 1 disorder, mixed F3 1.60 [place] [address] [place] [id number] [address] [place] [address] Dec, Normal pelvic exam Z01.419 [place] [address] [place] [id number] [place] [address] Dec, Bipolar 1 disorder, mixed F3 1.60 [place] [address] [place] [id number] [place] [address] Nov, Bipolar 1 disorder, mixed F3 1.60 [facility] [address] [facility] [id number] [address] [place] [address] Nov, Bipolar 1 disorder, mixed F3 1.60 ; Generalized anxiety disorder F41.1 ; Tobacco use disorder F17.200 and Other meterman (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 Z79.899 [facility] [address] [facility] [id number] [address] [place] [address] Nov, [facility] [address] [facility] [id number] [address] [place] [address] Nov, Bipolar 1 disorder, mixed F3 1.60 [place] [address] [facility] [id number] [address] [place] [address] October, Bipolar 1 disorder, mixed F3 1.60 [place] [address] [facility] [id number] [address] [place] [address] October, Bipolar 1 disorder, mixed F3 1.60 [place] [id number] [facility] [id number] [address] [place] [address] October, [facility] [address] [facility] [id number] [address] [place] [address] October, Bipolar 1 disorder, mixed F3 1.60 ; Generalized anxiety disorder F41.1 and Tobacco use disorder F17.200 [place] [address] [facility] [id number] [address] [place] [address] Sep, [facility] [address] [facility] [id number] [address] [place] [address] Sep, Encounter for Medicare annua wellness exam Z00.00 ; Major depressive disorder, recurrent episode, moderate F33.1 ; Allergic rhinitis J30.9 ; Bipolar 1 disorder, mixed F31.60 ; Fibromyalgia M79.7 ; Hyperlipidemia, unspecified hyperlipidemia type E78.5 ; Hormone replacement therapy Z79.890 ; Encounter for screening for lung cancer Z12.2 and Tobacco use disorder F17.200 [facility] [address] [facility] [id number] [address] [place] [address] Sep, Bipolar 1 disorder, mixed F3 1.60 [place] [address] [address] Sep, Other chronic pain G89.29 ; Hyperlipidemia, unspecified hyperlipidemia type E78.5 ; Breast cancer screening Z12.31 and Post menopausal syndrome N95.1 [place] [address] [address] Sep, Bipolar 1 disorder, mixed F3 1.60 [place] [address] [address] Sep, Bipolar 1 disorder, mixed F3 1.60 ; Generalized anxiety disorder F41.1 and Tobacco use disorder F17.200 [place] [address] [address] Sep, Gastritis without bleeding, unspecified chronicity, unspecified gastritis type K29.70 [place] [address] [place] [id number] [place] [address] Sep, Exercise counseling Z71.82 [place] [address] [address] Aug, Exercise counseling Z71.82 [place] [address] [address] Aug, Bipolar 1 disorder, mixed F3 1.60 [place] [address] [place] [id number] [place] [address] Aug, Exercise counseling Z71.82 [place] [address] [place] [id number] [address] [place] [address] Aug, Bipolar 1 disorder, mixed F3 1.60 [place] [address] [place] [id number] [place] [address] Aug, Gastritis without bleeding, unspecified chronicity, unspecified gastritis type K29.70 ; Tobacco abuse Z72.0 ; Generalized anxiety disorder F41.1 and Weight gain R63.5 [facility] [address] [id number] [address] [place] [address] 14 Aug, 2018 Bipolar 1 disorder, mixed F3 1.60 ; Generalized anxiety disorder F41.1 and Tobacco use disorder F17.200 [facility] [address] [facility] [id number] [address] [place] [address] Jul, Bipolar 1 disorder, mixed F3 1.60 [facility] [address] [facility] [id number] [address] [place] [address] Jul, [facility] [address] [facility] [id number] [address] [place] [address] Jul, Bipolar 1 disorder, mixed F3 1.60 [facility] [address] [facility] [id number] [address] [place] [address] Jul, Allergic rhinitis J30.9 ; Ma darion depressive disorder, recurrent episode, moderate F33.1 and Tobacco 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 [facility] [address] [facility] [id number] [address] [place] [address] Jun, [facility] [address] [facility] [id number] [address] [place] [address] Jun, [facility] [address] [facility] [id number] [address] [place] [address] Jun, Bipolar 1 disorder, mixed F3 1.60 [facility] [address] [facility] [id number] [address] [place] [address] Jun, Bipolar 1 disorder, mixed F3 1.60 [facility] [address] [facility] [id number] [address] [place] [address] Jun, Bipolar 1 disorder, mixed F3 1.60 [facility] [address] [facility] [id number] [address] [place] [address] Jun, Generalized anxiety disorder F41.1 ; Tobacco abuse Z72.0 and Major depressive disorder, recurrent episode, moderate F33.1 [facility] [address] [facility] [id number] [address] [place] [address] May, Bipolar 1 disorder, mixed F3 1.60 [facility] [address] [address] May, Bipolar 1 disorder, mixed F3 1.60 and Generalized anxiety disorder F41.1 [facility] [address] [place] [id number] [place] [address] May, Bipolar 1 disorder, mixed F3 1.60 [place] [address] [address] May, Allergic rhinitis J30.9 [place] [address] [address] May, Bipolar 1 disorder, mixed F3 1.60 [place] [address] [address] May, [place] [address] [address] Apr, Allergic rhinitis J30.9 ; Dy sfunction of both eustachian tubes H69.83 ; History of bladder surgery Z98.890 and Cervicalgia M54.2 [place] [address] [address] Mar, Bipolar 1 disorder, mixed F3 1.60 [place] [address] [address] Mar, [place] [address] [address] Mar, Slow transit constipation K5 9.01 ; Encounter for immunization Z23 and Generalized anxiety disorder F41.1 [place] [address] [place] [id number] [address] [place] [address] Feb, Bipolar 1 disorder, mixed F3 1.60 [place] [address] [place] [id number] [address] [place] [address] Feb, Allergic rhinitis J30.9 [facility] [address] [id number] [address] [place] [address] 24 Feb, 2018 Bipolar 1 disorder, mixed F3 1.60 [facility] [address] [id number] [address] [place] [address] 20 Feb, 2018 Bipolar 1 disorder, mixed F3 1.60 and Generalized anxiety disorder F41.1 [facility] [address] [facility] [id number] [address] [place] [id number] 13 Feb, 2018 Bipolar 1 disorder, mixed F3 1.60 [facility] [address] [facility] [id number] [address] [place] [address] 11 Feb, 2018 Allergic rhinitis J30.9 [facility] [address] [facility] [id number] [address] [place] [address] 05 Feb, 2018 [facility] [address] [facility] [id number] [address] [place] [address] Jan, Bipolar 1 disorder, mixed F3 1.60 [facility] [address] [facility] [id number] [address] [place] [address] Jan, Low back pain M54.5 ; Hyperl ipidemia, unspecified hyperlipidemia type E78.5 and Bipolar 1 disorder, mixed F31.60 [facility] [address] [facility] [id number] [address] [place] [address] Jan, Bipolar 1 disorder, mixed F3 1.60 [facility] [address] [facility] [id number] [address] [place] [address] Jan, Bipolar 1 disorder, mixed F3 1.60 [facility] [address] [facility] [id number] [address] [place] [address] Jan, Bipolar 1 disorder, mixed F3 1.60 [facility] [address] [facility] [id number] [address] [place] [address] Jan, Bipolar 1 disorder, mixed F3 1.60 [facility] [address] [facility] [id number] [address] [place] [address] Dec, Bipolar 1 disorder, mixed F3 1.60 ; Generalized anxiety disorder F41.1 and Other jail (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 Z79.899 [place] [address] [facility] [id number] [address] [place] [address] Dec, Other meterman (current) dr bin therapy Z79.899 [facility] [address] [facility] [id number] [address] [place] [address] Dec, Bipolar 1 disorder, mixed F3 1.60 [facility] [address] [facility] [id number] [address] [place] [address] Dec, Bipolar 1 disorder, mixed F3 1.60 [place] [address] [facility] [id number] [address] [place] [address] Nov, Bipolar 1 disorder, mixed F3 1.60 [place] [address] [facility] [id number] [address] [place] [address] Nov, Bipolar 1 disorder, mixed F3 1.60 [place] [id number] [facility] [id number] [address] [place] [address] Nov, Bipolar 1 disorder, mixed F3 1.60 [place] [address] [facility] [id number] [address] [place] [address] Nov, Allergic rhinitis J30.9 [facility] [address] [facility] [id number] [address] [place] [address] Nov, Allergic rhinitis J30.9 [facility] [address] [facility] [id number] [address] [place] [address] Nov, [place] [address] [facility] [id number] [address] [place] [address] Nov, Bipolar 1 disorder, mixed F3 1.60 [place] [address] [facility] [id number] [address] [place] [address] Nov, Fibromyalgia M79.7 and Aller gic rhinitis J30.9 [facility] [address] [facility] [id number] [address] [place] [address] October, Bipolar 1 disorder, mixed F3 1.60 [facility] [address] [id number] [address] [place] [address] October, Acute nasopharyngitis J00 [facility] [address] [facility] [id number] [address] [place] [address] October, Bitten or stung by nonvenomo us insect and other nonvenomous arthropods, initial encounter W57.XXXA and Insect bite (nonvenomous) of abdominal wall, initial encounter S30.861A [facility] [address] [facility] [id number] [address] [place] [address] October, Insect bite (nonvenomous) of abdominal wall, initial encounter S30.861A ; Bitten or stung by nonvenomous insect and other nonvenomous arthropods, initial encounter W57.XXXA ; Allergic rhinitis J30.9 and Low back pain M54.5 [facility] [address] [facility] [id number] [address] [place] [address] October, Bipolar 1 disorder, mixed F3 1.60 [facility] [address] [facility] [id number] [address] [place] [address] October, [facility] [address] [facility] [id number] [address] [place] [address] October, [facility] [address] [facility] [id number] [address] [place] [address] October, Bipolar 1 disorder, mixed F3 1.60 [facility] [address] [id number] [address] [place] [address] Sep, Bipolar 1 disorder, mixed F3 1.60 [facility] [address] [facility] [id number] [address] [place] [address] Sep, Other chronic pain G89.29 [facility] [address] [facility] [id number] [address] [place] [address] Sep, [facility] [address] [facility] [id number] [address] [place] [address] Sep, Bipolar 1 disorder, mixed F3 1.60 [facility] [address] [facility] [id number] [address] [place] [address] Sep, Allergic rhinitis J30.9 and Sciatica of left side M54.32 [facility] [address] [facility] [id number] [address] [place] [address] Sep, Bipolar 1 disorder, mixed F3 1.60 [facility] [address] [facility] [id number] [address] [place] [address] Sep, Bipolar 1 disorder, mixed F3 1.60 and Generalized anxiety disorder F41.1 [place] [address] [facility] [id number] [address] [place] [address] Aug, [place] [address] [place] [id number] [address] [place] [address] Aug, Bipolar 1 disorder, mixed F3 1.60 [facility] [address] [facility] [id number] [address] [place] [address] Aug, Bipolar 1 disorder, mixed F3 1.60 [facility] [address] [facility] [id number] [address] [place] [address] Aug, [place] [address] [facility] [id number] [address] [place] [address] Aug, Generalized anxiety disorder F41.1 [facility] [address] [facility] [id number] [address] [place] [address] Aug, Bipolar 1 disorder, mixed F3 1.60 [facility] [address] [facility] [id number] [address] [place] [address] Aug, Plantar wart of right foot B 07.0 [facility] [address] [facility] [id number] [address] [place] [address] Aug, Bipolar 1 disorder, mixed F3 1.60 [facility] [address] [place] [id number] [address] [place] [address] Jul, Bipolar 1 disorder, mixed F3 1.60 [facility] [address] [facility] [id number] [address] [place] [address] Jul, [facility] [address] [facility] [id number] [address] [place] [address] 14 Jul, 2017 Bipolar 1 disorder, mixed F3 1.60 [facility] [address] [place] [id number] [address] [place] [address] Jul, Generalized anxiety disorder F41.1 [facility] [address] [facility] [id number] [address] [place] [address] 07 Jul, 2017 Bipolar 1 disorder, mixed F3 1.60 [facility] [address] [place] [id number] [address] [place] [address] 07 Jul, 2017 Acute left-sided low back pa in with left-sided sciatica M54.42 [facility] [address] [place] [id number] [address] [place] [address] 05 Jul, 2017 Coccydynia M53.3 [facility] [address] [facility] [id number] [address] [place] [address] Jun, Bipolar 1 disorder, mixed F3 1.60 [facility] [address] [facility] [id number] [address] [place] [address] Jun, Acute nasopharyngitis J00 [facility] [address] [facility] [id number] [address] [place] [address] Jun, Bipolar 1 disorder, mixed F3 1.60 [facility] [address] [facility] [id number] [address] [place] [address] Jun, Fibromyalgia M79.7 [facility] [address] [facility] [id number] [address] [place] [address] Jun, Bipolar 1 disorder, mixed F3 1.60 [facility] [address] [place] [id number] [address] [place] [address] Jun, Fibromyalgia M79.7 and Bipol ar 1 disorder, mixed F31.60 [place] [address] [address] May, Bipolar 1 disorder, mixed F3 1.60 ; Generalized anxiety disorder F41.1 and Other meterman (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 Z79.899 [place] [address] [address] May, Bipolar 1 disorder, mixed F3 1.60 [facility]ALK [facility] [place] [id number] [address] May, Cough R05 and Body aches R52 [facility] WALK IN [place] [address] [address] 10 May, 2017 Bladder spasm N32.89 and Acu te cystitis without hematuria N30.00 [place] [address] [address] May, Bipolar 1 disorder, mixed F3 1.60 [place] [address] [address] Apr, [place] [address] [address] Apr, Major depressive disorder, r ecurrent episode, moderate F33.1 and Encounter for immunization Z23 [place] [address] [address] Apr, Bipolar 1 disorder, mixed F3 1.60 [place] [address] [address] Apr, Bipolar 1 disorder, mixed F3 1.60 [place] [address] [address] 16 Apr, 2017 Bipolar 1 disorder, mixed F3 1.60 [place] [address] [address] Apr, Yeast vaginitis B37.3 [facility] [address] [facility] [id number] [address] [place] [address] 09 Apr, 2017 Bipolar 1 disorder, mixed F3 1.60 [facility] [address] [facility] [id number] [address] [place] [address] 07 Apr, 2017 Cellulitis L03[address] for immunization Z23 [facility] [address] [place] [id number] [address] [place] [address] Apr, Bipolar 1 disorder, mixed F3 1.60 [facility] [address] [place] [id number] [address] [place] [id number] Mar, Bipolar 1 disorder, mixed F3 1.60 [place] [address] [id number] Mar, Bipolar 1 disorder, mixed F3 1.60 [facility] [address] [id number] Mar, Imbalance R26.89 [address] Encount er for immunization Z23 [facility] [address] [place] [id number] [address] [place] [id number] Mar, Generalized anxiety disorder F41.1 [facility] [address] [place] [id number] [address] [place] [id number] Mar, Bipolar 1 disorder, mixed F3 1.60 [facility] [address] [place] [id number] [address] [place] [id number] Mar, Generalized anxiety disorder F41.1 [facility] [address] [place] [id number] [address] [place] [id number] Mar, Bipolar 1 disorder, mixed F3 1.60 [facility] [address] [place] [id number] [address] [place] [id number] Mar, Bipolar 1 disorder, mixed F3 1.60 [facility] [address] [place] [place] [id number] [address] [place] [address] Feb, Bipolar 1 disorder, mixed F3 1.60 [place] [address] [facility] [id number] [address] [place] [address] 25 Feb, 2017 Bipolar 1 disorder, mixed F3 1.60 and Generalized anxiety disorder F41.1 [facility] [address] [facility] [id number] [address] [place] [address] 21 Feb, 2017 Gastritis without bleeding, unspecified chronicity, unspecified gastritis type K29.70 ; Hammer toe of right foot M20.41 and Other viral warts B07.8 [place] [address] [facility] [id number] [address] [place] [address] 20 Feb, 2017 Bipolar 1 disorder, mixed F3 1.60 [place] [address] [facility] [id number] [address] [place] [address] 13 Feb, 2017 Bipolar 1 disorder, mixed F3 1.60 [place] [address] [place] [id number] [address] [place] [address] 05 Feb, 2017 Bipolar 1 disorder, mixed F3 1.60 [place] [address] [place] [id number] [address] [place] [address] Jan, Encounter for screening mamm ogram for breast cancer Z12.31 ; Other viral warts B07.8 and Allergic rhinitis J30.9 [place] [address] [facility] [id number] [address] [place] [address] Jan, Bipolar 1 disorder, mixed F3 1.60 [place] [address] [facility] [id number] [address] [place] [address] Jan, Bipolar 1 disorder, mixed F3 1.60 [place] [address] [facility] [id number] [address] [place] [address] Jan, [place] [address] [place] [id number] [address] [place] [address] Jan, Bipolar 1 disorder, mixed F3 1.60 [place] [address] [place] [id number] [address] [place] [address] Jan, Bipolar 1 disorder, mixed F3 1.60 [place] [address] [facility] [id number] [address] [place] [address] Jan, Allergic rhinitis J30.9 ; He maturia R31.9 and Colon cancer screening Z12.11 [place] [address] [facility] [id number] [address] [place] [address] Dec, Bipolar 1 disorder, mixed F3 1.60 [place] [address] [place] [id number] [address] [place] [address] Dec, Bipolar 1 disorder, mixed F3 1.60 ; Generalized anxiety disorder F41.1 and Other jail (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 Z79.899 [place] [address] [place] [id number] [address] [place] [address] Dec, Bipolar 1 disorder, mixed F3 1.60 [place] [address] [place] [id number] [address] [place] [address] Dec, Bipolar 1 disorder, mixed F3 1.60 [place] [address] [place] [id number] [address] [place] [address] Dec, Bipolar 1 disorder, mixed F3 1.60 [place] [address] [place] [id number] [address] [place] [address] Dec, Low back pain M54.5 and Recu rrent urinary tract infection N39.0 [place] [address] [place] [id number] [address] [place] [address] Nov, Bipolar 1 disorder, mixed F3 1.60 [place] [address] [facility] [id number] [address] [place] [address] Nov, Bipolar 1 disorder, mixed F3 1.60 [place] [address] [place] [id number] [address] [place] [address] Nov, Bipolar 1 disorder, mixed F3 1.60 [place] [address] [place] [id number] [address] [place] [address] Nov, Bipolar 1 disorder, mixed F3 1.60 [place] [address] [address] Nov, [place] [address] [address] Nov, Anesthesia of skin R20.0 ; F requent UTI N39.0 ; Tobacco abuse Z72.0 and Colon cancer screening Z12.11 [place] [address] [address] Nov, Bipolar 1 disorder, mixed F3 1.60 [place] [address] [address] October, Bipolar 1 disorder, mixed F3 1.60 [place] [address] [address] October, Bipolar 1 disorder, mixed F3 1.60 [place] [address] [address] October, Bipolar 1 disorder, mixed F3 1.60 [place] [address] [address] October, Bipolar 1 disorder, mixed F3 1.60 [place] [address] [address] October, Bipolar 1 disorder, mixed F3 1.60 [place] [address] [address] October, Cervicalgia M54.2 and Bipola r 1 disorder, mixed F31.60 [place] [address] [address] October, Hypertension I10 ; Hyperlipi demia, unspecified hyperlipidemia type E78.5 and Family history of thyroid disease Z83.49 [place] [address] [address] October, [place] [address] [address] October, Hypertension I10 ; Hyperlipi demia, unspecified hyperlipidemia type E78.5 and Family history of thyroid problem Z83.49 [place] [address] [place] [id number] [address] [place] [address] October, Bipolar 1 disorder, mixed F3 1.60 [place] [address] [place] [id number] [address] [place] [address] Sep, Bipolar 1 disorder, mixed F3 1.60 [place] [id number] [place] [address] Sep, Bipolar 1 disorder, mixed F3 1.60 [place] [address] [address] Sep, Bipolar 1 disorder, mixed F3 1.60 [place] [address] [address] Sep, History of colon polyps Z86. 010 and Hematochezia K92.1 [place] [address] [place] [id number] [address] [place] [address] Sep, Major depressive disorder, r ecurrent episode, moderate F33.1 [place] [address] [place] [id number] [address] [place] [address] Sep, Bipolar 1 disorder, mixed F3 1.60 [place] [address] [place] [id number] [address] [place] [address] Aug, Hot flashes due to menopause N95.1 [place] [address] [place] [id number] [address] [place] [address] Aug, Bipolar 1 disorder, mixed F3 1.60 [place] [address] [place] [id number] [address] [place] [address] Aug, [place] [address] [place] [id number] [address] [place] [address] Aug, Bipolar 1 disorder, mixed F3 1.60 [place] [address] [address] Aug, Bipolar 1 disorder, mixed F3 1.60 [place] [address] [place] [id number] Aug, Hot flashes due to menopause N95.1 ; Cervicalgia M54.2 and Ataxia R27.0 [place] [address] [place] [address] Jul, Bipolar 1 disorder, mixed F3 1.60 [place] [address] Jul, Bipolar 1 disorder, mixed F3 1.60 [place] [address] Jul, Bipolar 1 disorder, mixed F3 1.60 [place] [address] [place] [address] Jul, Bipolar 1 disorder, mixed F3 1.60 [place] [address] [address] Jul, Bipolar 1 disorder, mixed F3 1.60 [place] [address] [address] Jul, Cervicalgia M54.2 ; Tremor R 25.1 ; Hearing abnormally acute, unspecified laterality H93.239 ; Alopecia L65.9 ; Encounter for immunization Z23 and Family history of thyroid disease Z83.49 [place] [address] [address] Jul, Bipolar 1 disorder, mixed F3 1.60 [place] [address] [place] [address] Jun, [place] [address] [address] Jun, Hearing disorder, unspecifie d laterality H93.299 [place] [id number] [id number] [address] [place] [address] Jun, Bipolar 1 disorder, mixed F3 1.60 [facility] [address] [id number] [address] [place] [address] Jun, Bipolar 1 disorder, mixed F3 1.60 [facility] [address] [facility] [id number] [address] [place] [address] Jun, Allergic rhinitis J30.9 [facility] [address] [id number] [address] [place] [address] Jun, Bipolar 1 disorder, mixed F3 1.60 [facility] [address] [id number] [address] [place] [address] Jun, Bipolar 1 disorder, mixed F3 1.60 [facility] [address] [facility] [id number] [address] [place] [address] Jun, Allergic rhinitis J30.9 [facility] [address] [facility] [id number] [address] [place] [address] Jun, Allergic rhinitis J30.9 [facility] [address] [facility] [id number] [address] [place] [address] Jun, Bipolar 1 disorder, mixed F3 1.60 [facility] [address] [facility] [id number] [address] [place] [address] May, Bipolar 1 disorder, mixed F3 1.60 [facility] [address] [id number] [address] [place] [address] May, Bipolar 1 disorder, mixed F3 1.60 [facility] [address] [facility] [id number] [address] [place] [address] May, [facility] [address] [facility] [id number] [address] [place] [address] May, Bipolar 1 disorder, mixed F3 1.60 [facility] [address] [facility] [id number] [address] [place] [address] May, Bipolar 1 disorder, mixed F3 1.60 [facility] [address] [facility] [id number] [address] [place] [address] May, [facility] [address] [facility] [id number] [address] [place] [address] May, [facility] [address] [place] [id number] [address] [place] [address] May, [facility] [address] [place] [id number] [place] [address] May, Abdominal pain, unspecified location R10.9 [facility] [address] [place] [id number] [place] [address] May, [facility] [address] [place] [id number] [place] [address] Apr, Hematuria R31.9 ; Ataxia R27 .0 and Hearing loss, unspecified laterality H91.90 [facility] [address] [address] Apr, Bipolar 1 disorder, mixed F3 1.60 [facility] [address] [address] Apr, Acute effusion of both middl e ears H65.193 [facility] [address] [place] [id number] [address] [place] [address] Apr, Hematuria R31.9 and Pyelonep hritis N12 [facility] [address] [place] [id number] [address] [place] [address] Apr, [facility] [address] [address] Mar, Bipolar 1 disorder, mixed F3 1.60 [facility] [address] [place] [id number] [address] [place] [address] Mar, [facility] [address] [address] Mar, Bipolar 1 disorder, mixed F3 1.60 [place] [address] [place] [id number] [address] [place] [address] Mar, Bipolar 1 disorder, mixed F3 1.60 [place] [address] [place] [id number] [address] [place] [address] Mar, Encounter for immunization Z 23 and Gastritis without bleeding, unspecified chronicity, unspecified gastritis type K29.70 [place] [address] [place] [id number] [address] [place] [address] Mar, Bipolar 1 disorder, mixed F3 1.60 and Grief F43.20 [place] [address] [place] [id number] [address] [place] [address] Mar, Gastritis without bleeding, unspecified chronicity, unspecified gastritis type K29.70 [place] [address] [place] [id number] [address] [place] [address] Mar, Bipolar 1 disorder, mixed F3 1.60 [place] [address] [place] [id number] [address] [place] [address] Mar, Gastritis without bleeding, unspecified chronicity, unspecified gastritis type K29.70 [place] [address] [place] [id number] [address] [place] [address] Mar, [place] [address] [place] [id number] [address] [place] [address] Feb, Bipolar 1 disorder, mixed F3 1.60 [place] [address] [place] [id number] [address] [place] [address] Feb, Bipolar 1 disorder, mixed F3 1.60 and Grief F43.20 [place] [address] [place] [id number] [address] [place], [place] [address] Feb, Gastritis without bleeding, unspecified chronicity, unspecified gastritis type K29.70 [place] [address] [place] [id number] [address] [place] [address] 14 Feb, 2016 Bipolar 1 disorder, mixed F3 1.60 [facility] [address] [facility] [id number] [address] [place] [address] Feb, Gastroesophageal reflux dise ase, esophagitis presence not specified K21.9 [facility] [address] [id number] [address] [place] [address] Jan, Bipolar 1 disorder, mixed F3 1.60 [facility] [address] [facility] [id number] [address] [place] [address] Jan, Bipolar 1 disorder, mixed F3 1.60 and Unsteady gait R26.81 [facility] [address] [facility] [id number] [address] [place] [address] Jan, Bipolar 1 disorder, mixed F3 1.60 [facility] [address] [facility] [id number] [address] [place] [address] Jan, Bipolar 1 disorder, mixed F3 1.60 and Other meterman (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 Z79.899 [facility] [address] [facility] [id number] [address] [place] [address] Jan, Bipolar 1 disorder, mixed F3 1.60 [facility] [address] [facility] [id number] [address] [place] [address] Jan, Bipolar 1 disorder, mixed F3 1.60 [facility] [address] [facility] [id number] [address] [place] [address] Jan, Bipolar 1 disorder, mixed F3 1.60 ; Grief F43.20 and Other jail (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 Z79.899 [facility] [address] [facility] [id number] [address] [place] [address] Jan, Bipolar 1 disorder, mixed F3 1.60 [facility] [address] [facility] [id number] [address] [place] [address] Dec, [facility] [address] [facility] [id number] [address] [place] [address] Dec, Bipolar 1 disorder, mixed F3 1.60 ; Vitamin D deficiency, unspecified E55.9 ; H/O allergic rhinitis Z87.09 ; Other chronic pain G89.29 and Dorsalgia, unspecified M54.9 [facility] [address] [facility] [id number] [address] [place] [address] Dec, [facility] [address] [place] [id number] [address] [place] [address] Dec, Bipolar 1 disorder, mixed F3 1.60 [facility] [address] [place] [id number] [address] [place] [address] Dec, Major depressive disorder, r ecurrent episode, moderate F33.1 [place] [address] [place] [id number] [place] [address] Dec, Major depressive disorder, r ecurrent episode, moderate F33.1 [place] [address] [place] [address] Nov, [place] [address] [place] [address] Nov, Bipolar 1 disorder, mixed F3 1.60 [place] [address] [place] [address] Nov, Major depressive disorder, r ecurrent episode, moderate F33.1 [place] [address] [place] [id number] [address] [place] [address] Nov, Cervicalgia M54.2 ; Arthralg ia of hip, unspecified laterality M25.559 ; Allergic rhinitis J30.9 and Hormone replacement therapy Z79.890 [facility] [address] [facility] [id number] [address] [place] [address] Nov, Other seasonal allergic rhin itis J30.2 [facility] [address] [facility] [id number] [address] [place] [address] October, Major depressive disorder, r ecurrent episode, moderate F33.1 [facility] [address] [place] [id number] [address] [place] [address] October, Major depressive disorder, r ecurrent episode, moderate F33.1 and Arthralgia of hip, unspecified laterality M25.559 [place] [address] [facility] [id number] [address] [place] [address] October, Grief F43.20 ; Hypertension I10 ; Hyperlipidemia, unspecified hyperlipidemia type E78.5 ; Other chronic pain G89.29 and Allergic rhinitis, unspecified allergic rhinitis type J30.9 [place] [address] [place] [id number] [address] [place] [address] October, Major depressive disorder, r ecurrent episode, moderate F33.1 [place] [address] [place] [id number] [address] [place] [address] Sep, Major depressive disorder, r ecurrent episode, moderate F33.1 [place] [address] [place] [address] Sep, [place] [address] [place] [id number] [address] [place] [address] Sep, Major depressive disorder, r ecurrent episode, moderate F33.1 [place] [address] [place] [id number] [address] [place] [address] Sep, Grief F43.20 [place] [address] [place] [id number] [address] [place] [address] Aug, Major depressive disorder, r ecurrent episode, moderate F33.1 [place] [address] [place] [id number] [address] [place] [address] Aug, Bipolar 1 disorder, mixed F3 1.60 [place] [address] [place] [id number] [address] [place] [address] Aug, Allergic rhinitis J30.9 ; Ce rvicalgia M54.2 and Low back pain M54.5 [place] [address] [place] [id number] [address] [place] [address] Aug, Major depressive disorder, r ecurrent episode, moderate F33.1 [facility] [address] [facility] [id number] [address] [place] [address] Aug, Sinusitis J32.9 and Tobacco 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 [facility] [address] [facility] [id number] [address] [place] [address] Aug, [facility] [address] [facility] [id number] [address] [place] [address] Aug, Depressive disorder, not els ewhere classified F32.9 ; Hormone replacement therapy Z79.[address] scan, head R93.0 [facility] [address] [facility] [id number] [address] [place] [address] Aug, Major depressive disorder, r ecurrent episode, moderate F33.1 [facility] [address] [facility] [id number] [address] [place] [address] Jul, Major depressive disorder, r ecurrent episode, moderate F33.1 [facility] [address] [facility] [id number] [address] [place] [address] Jul, Abdominal pain R10.9 and Hyp ertension I10 [facility] [address] [facility] [id number] [address] [place] [address] Jul, [facility] [address] [facility] [id number] [address] [place] [address] Jul, Major depressive disorder, r ecurrent episode, moderate F33.1 [facility] [address] [facility] [id number] [address] [place] [address] Jul, [facility] [address] [facility] [id number] [address] [place] [address] Jul, [facility] [address] [facility] [id number] [address] [place] [address] Jun, [facility] [address] [place] [id number] [address] [place] [address] Jun, Depressive disorder, not els ewhere classified F32.9 [facility] [address] [id number] [address] [place] [address] Jun, [facility] [address] [id number] [address] [place] [address] Jun, [facility] [address] [id number] [address] [place] [address] Jun, Arthralgia of hip, unspecifi ed laterality M25.559 ; Bruising, spontaneous R23.3 and Night sweats R61 [facility] [address] [id number] [address] [place] [address] Jun, [facility] [address] [id number] [address] [place] [id number] Jun, [facility] [address] [facility] [id number] [address] [place] [id number] May, [facility] [address] [id number] [address] [place] [id number] May, Myalgia M79.1 and Screening, lipid Z13.220 [facility] [address] [facility] [id number] [address] [place] [id number] Apr, Status post cervical spinal fusion Z98.1 ; Fibromyalgia M79.7 and Unsteady gait R26.81 [facility] [address] [id number] [address] [place] [id number] Nov, [facility] [address] [id number] [address] [place] [id number] Nov, [facility] [address] [facility] [id number] [address] [place] [id number] October, [facility] [address] [facility] [id number] [address] [place] [id number] October, [facility] [address] [facility] [id number] [address] [place] [id number] October, [facility] [address] [id number] [address] [place] [address], [place] [address] October, [facility] [address] [id number] [address] [place] [address], [place] [address] October, [facility] [address] [id number] [address] [place] [address], [place] [address] October, Dysuria 788.1 ; Nausea 787.0 2 and Urinary tract infection 599.0 [facility] [place] [address] [id number] [address] [place] [address], [place] [address] Sep, [facility] [address] [id number] [address] [place] [address], [place] [address] Sep, [facility] [address] [id number] [address] [place] [address], [place] [address] Aug, [facility] [address] [id number] [address] [place] [address], [place] [address] Aug, [facility] [address] [id number] [address] [place] [address], [place] [address] Aug, [facility] [address] [id number] [address] [place] [address], [place] [address] Aug, [facility] [address] [id number] [address] [place] [address], [place] [address] Aug, [facility] [address] [id number] [address] [place] [address], [place] [address] Aug, [facility] [address] [id number] [address] [place] [address], [place] [address] Aug, [facility] [address] [id number] [address] [place] [address], [place] [address] Aug, [facility] [address] [id number] [address] [place] [address], [place] [address] Aug, [facility] [address] [id number] [address] [place] [address] Aug, [facility] [address] [id number] [address] [place] [address], [place] [address] 18 Aug, 2014 [facility] [address] [id number] [address] [place] [address], [place] [address] Aug, [facility] [address] [id number] [address] [place] [address], [place] [address] Aug, [facility] [address] [id number] [address] [place] [address], [place] [address] Aug, [facility] [address] [id number] [address] [place] [address], [place] [address] Aug, [facility] [address] [id number] [address] [place] [address], [place] [address] Aug, [facility] [address] [id number] [address] [place] [address], [place] [address] Aug, 2014 [facility] [address] [id number] [address] [place] [address], [place] [address] 05 Aug, 2014 [facility] [address] [id number] [address] [place] [address], [place] [address] 05 Aug, 2014 [facility] [address] [id number] [address] [place] [address], [place] [address] Aug, [facility] [address] [id number] [address] [place] [address], [place] [address] Aug, [facility] [address] [id number] [address] [place] [address], [place] [address] Aug, [facility] [address] [id number] [address] [place] [address], [place] [address] Jul, [facility] [address] [id number] [address] [place] [address], [place] [address] Jul, [facility] [address] [id number] [address] [place] [address], [place] [address] Jul, [facility] [address] [id number] [address] [place] [address] [place] [address] Jul, 2014 [facility] [address] [id number] [address] [place] [address], [place] [address] Jul, 2014 [facility] [address] [id number] [address] [place] [address], [place] [address] Jul, 2014 [facility] [address] [id number] [address] [place] [address], [place] [address] Jul, 2014 [facility] [address] [id number] [address] [place] [address], [place] [address] Jul, 2014 [facility] [address] [id number] [address] [place] [address], [place] [address] Jul, 2014 [facility] [address] [id number] [address] [place] [address], [place] [address] Jul, 2014 [facility] [address] [id number] [address] [place] [address], [place] [address] Jul, 2014 [facility] [address] [id number] [address] [place] [address], [place] [address] Jul, 2014 [facility] [address] [id number] [address] [place] [address], [place] [address] Jul, [facility] [address] [id number] [address] [place] [address], [place] [address] Jul, [facility] [address] [id number] [address] [place] [address] Jun, [facility] [address] [id number] [address] [place] [address] Jun, [facility] [address] [id number] [address] [place] [address] Jun, [facility] [address] [id number] [address] [place] [address] Jun, [facility] [address] [id number] [address] [place] [address] Jun, [facility] [address] [id number] [address] [place] [address], [place] [address] Jun, [facility] [address] [id number] [address] [place] [address], [place] [address] May, [facility] [address] [id number] [address] [place] [address], [place] [address] May, [facility] [address] [id number] [address] [place] [address], [place] [address] May, [facility] [address] [id number] [address] [place] [address], [place] [address] May, [facility] [address] [id number] [address] [place] [address], [place] [address] May, [facility] [address] [id number] [address] [place] [address], [place] [address] May, [facility] [address] [id number] [address] [place] [address], [place] [address] Apr, [facility] [address] [id number] [address] [place] [address], [place] [address] Apr, [facility] [address] [id number] [address] [place] [address], [place] [address] Apr, [facility] [address] [id number] [address] [place] [address], [place] [address] Apr, [facility] [address] [id number] [address] [place] [address], [place] [address] Apr, [facility] [address] [id number] [address] [place] [address], [place] [address] Apr, [facility] [address] [id number] [address] [place] [address], [place] [address] Mar, [facility] [address] [id number] [address] [place] [address], [place] [address] Mar, [facility] [address] [id number] [address] [place] [address], [place] [address] 09 Mar, 2013 [facility] [address] [id number] [address] [place] [address], [place] [address] Mar, 2013 [facility] [address] [id number] [address] [place] [address], [place] [address] Mar, 2013 [facility] [address] [id number] [address] [place] [address], [place] [address] Mar, 2013 [facility] [address] [id number] [address] [place] [address], [place] [address] Mar, 2013 [facility] [address] [id number] [address] [place] [address], [place] [address] Mar, 2013 [facility] [address] [id number] [address] [place] [address], [place] [address] Mar, 2013 [facility] [address] [id number] [address] [place] [address], [place] [address] Mar, 2013 [facility] [address] [id number] [address] [place] [address], [place] [address] Mar, [facility] [address] [id number] [address] [place] [address], [place] [address] Mar, 2013 [facility] [address] [id number] [address] [place] [address], [place] [address] 30 Sep, 2013 [facility] [address] [id number] [address] [place] [address], [place] [address] 29 Sep, 2013 [facility] [address] [id number] [address] [place] [address], [place] [address] 29 Sep, 2013 [facility] [address] [id number] [address] [place] [address], [place] [address] 23 Sep, 2013 [facility] [address] [id number] [address] [place] [address], [place] [address] 23 Sep, 2013 [facility] [address] [id number] [address] [place] [address], [place] [address] Feb, [facility] [address] [id number] [address] [place] [address], [place] [address] Feb, [facility] [address] [id number] [address] [place] [address], [place] [address] Jan, [facility] [address] [id number] [address] [place] [address], [place] [address] Jan, [facility] [address] [id number] [address] [place] [address], [place] [address] Jan, [facility] [address] [id number] [address] [place] [address], [place] [address] Dec, [facility] [address] [id number] [address] [place] [address], [place] [address] Dec, [facility] [address] [id number] [address] [place] [address], [place] [address] Dec, [facility] [address] [id number] [address] [place] [address], [place] [address] Dec, [facility] [address] [id number] [address] [place] [address], [place] [address] Sep, [facility] [address] [id number] [address] [place] [address], [place] [address] Sep, [facility] [address] [id number] [address] [place] [address], [place] [address] Sep, [facility] [address] [id number] [address] [place] [address], [place] [address] Sep, [facility] [address] [id number] [address] [place] [address], [place] [address] Sep, [facility] [address] [id number] [address] [place] [address], [place] [address] Sep, [facility] [address] [id number] [address] [place] [address], [place] [address] Sep, [facility] [address] [id number] [address] [place] [address], [place] [address] Sep, [facility] [address] [id number] [address] [place] [address], [place] [address] Aug, [facility] [address] [id number] [address] [place] [address], [place] [address] Aug, [facility] [address] [id number] [address] [place] [address], [place] [address] May, [facility] [address] [id number] [address] [place] [address], [place] [address] May, [facility] [address] [id number] [address] [place] [address], [place] [address] Apr, [facility] [address] [id number] [address] [place] [address], [place] [address] Apr, [facility] [address] [id number] [address] [place] [address], [place] [address] Apr, [facility] [address] [id number] [address] [place] [address], [place] [address] Apr, [facility] [address] [id number] [address] [place] [address], [place] [address] Apr, [facility] [address] [id number] [address] [place] [address], [place] [address] Apr, [facility] [address] [id number] [address] [place] [address], [place] [address] May, [facility] [address] [id number] [address] [place] [address], [place] [address] 18 May, 2012 [facility] [address] [id number] [address] [place] [address], [place] [address] 15 May, 2012 [facility] [address] [id number] [address] [place] [address], [place] [address] 15 May, 2012 [facility] [address] [id number] [address] [place] [address], [place] [address] 13 May, 2012 [facility] [address] [id number] [address] [place] [address], [place] [address] 13 May, 2012 [facility] [address] [id number] [address] [place] [address], [place] [address] 13 Apr, 2012 [facility] [address] [id number] [address] [place] [address], [place] [address] 13 Apr, 2012 [facility] [address] [id number] [address] [place] [address], [place] [address] 08 Apr, 2012 [facility] [address] [id number] [address] [place] [address], [place] [address] 08 Apr, 2012 [facility] [address] [id number] [address] [place] [address], [place] [address] Apr, [facility] [address] [id number] [address] [place] [address], [place] [address] Apr, [facility] [address] [id number] [address] [place] [address], [place] [address] Apr, [facility] [address] [id number] [address] [place] [address], [place] [address] Apr, [facility] [address] [id number] [address] [place] [address], [place] [address] Apr, [facility] [address] [id number] [address] [place] [address], [place] [address] Apr, [facility] [address] [id number] [address] [place] [address], [place] [address] Mar, [facility] [address] [id number] [address] [place] [address], [place] [address] Mar, [facility] [address] [id number] [address] [place] [address], [place] [address] Mar, [facility] [address] [id number] [address] [place] [address], [place] [address] Mar, [facility] [address] [id number] [address] [place] [address], [place] [address] Mar, [facility] [address] [id number] [address] [place] [address], [place] [address] Mar, [facility] [address] [id number] [address] [place] [address], [place] [address] Mar, [facility] [address] [id number] [address] [place] [address], [place] [address] Mar, [facility] [address] [id number] [address] [place] [address], [place] [address] Mar, [facility] [address] [id number] [address] [place] [address], [place] [address] Feb, [facility] [address] [id number] [address] [place] [address], [place] [address] 16 Feb, 2012 [facility] [address] [id number] [address] [place] [address], [place] [address] Feb, [facility] [address] [id number] [address] [place] [address], [place] [address] Jan, [facility] [address] [id number] [address] [place] [address], [place] [address] Jan, [facility] [address] [id number] [address] [place] [address], [place] [address] Jan, [facility] [address] [id number] [address] [place] [address], [place] [address] Jan, [facility] [address] [id number] [address] [place] [address] Jan, [facility] [address] [id number] [address] [place] [address], [place] [address] Jan, [facility] [address] [id number] [address] [place] [address], [place] [address] 16 Jan, 2012 [facility] [address] [id number] [address] [place] [address], [place] [address] 15 Jan, 2012 [facility] [address] [id number] [address] [place] [address] Jan, [facility] [address] [id number] [address] [place] [address], [place] [address] Jan, [facility] [address] [id number] [address] [place] [address], [place] [address] Dec, [facility] [address] [id number] [address] [place] [address], [place] [address] Dec, [facility] [address] [id number] [address] [place] [address], [place] [address] Dec, [facility] [address] [id number] [address] [place] [address], [place] [address] Dec, [facility] [address] [id number] [address] [place] [address], [place] [address] Nov, [facility] [address] [id number] [address] [place] [address], [place] [address] Nov, [facility] [address] [id number] [address] [place] [address], [place] [address] Nov, [facility] [address] [id number] [address] [place] [address], [place] [address] October, [facility] [address] [id number] [address] [place] [address], [place] [address] October, [facility] [address] [id number] [address] [place] [address], [place] [address] October, [facility] [address] [id number] [address] [place] [address], [place] [address] October, [facility] [address] [id number] [address] [place] [address], [place] [address] October, [facility] [address] [id number] [address] [place] [address], [place] [address] October, [facility] [address] [id number] [address] [place] [address], [place] [address] Aug, [facility] [address] [id number] [address] [place] [address] 10 Mar, 2011 [facility] [address] [facility] [id number] [address] [place] [address] 16 Nov, 2010 [facility] [address] [id number] [address] [place] [address] May, [facility] [address] [facility] [id number] [address] [place] [address] May, [facility] [address] [facility] [id number] [address] [place] [address] Apr, [facility] [address] [facility] [id number] [address] [place] [address] Mar, [facility] [address] [facility] [id number] [address] [place] [address] Mar, IMMUNIZATIONS No Known Immunizations SOCIAL HISTORY [...]
--- OUTSIDE RECORDS SUMMARY | 2019-06-19 05:05 | XMS REPORT ---
Author Author Sydnie HANCOCK [facility] Address [address] [place] [address] Care Team Providers Care Java Consultant Name Role Phone NAHOMY HANCOCK Unavailable PROBLEMS Type Condition ICD9-CM Code PDU08-TA Code Onset Dates Condition S tatus SNOMED Code Problem Abnormal CT scan, head R93.0 Active 066333633 Problem Bruising, spontaneous R23.3 Active 296104098 Problem Sensorineural hearing loss (SNHL) of both ears H90 .3 Active 531458225 Problem Arthralgia of hip, unspecified laterality M25.559 Active 77078847 Problem Night sweats R61 Active 3332324 0 Problem Grief F43.20 Active 87338546 Problem Hypertension I10 Active 2919209 3 Problem Major depressive disorder, recurrent episode, moderate F33.1 Active 445229755 Problem Imbalance R26.89 Active 138011555 Problem Age-related osteoporosis without current pathological fracture M81.0 Active 70559284 Problem Hormone replacement therapy Z79.890 Ac tive 527931110 Problem Ataxia R27.0 Active 64351524 Problem Bipolar 1 disorder, mixed F31.60 Acti ve 23189587 Problem Allergic rhinitis J30.9 Active 61 269363 Problem Hearing loss, unspecified laterality H91.90 Active 05769990 Problem Generalized anxiety disorder F41.1 A ctive 90236852 Problem History of colon polyps Z86.010 Active 331051710 Problem Hammer toe of right foot M20.41 Activ e 914959142 Problem Hematuria, unspecified type R31.9 Ac tive 86566365 Problem Fibromyalgia M79.7 Active 3328267 7 Problem Bladder spasm N32.89 Active 141015 006 Problem Acute left-sided low back pain with left-sided sciatica M54.42 Active 346348130 Problem Post menopausal syndrome N95.1 Activ e 162296352 Problem Hyperlipidemia, unspecified hyperlipidemia type E7 8.5 Active 06069660 Problem Sciatica of right side M54.31 Active 09399498 Problem Other chronic pain G89.29 Active 8 9413174 Problem Gastritis without bleeding, unspecified chronicity, unspecified gastritis type K29.70 Active 800213691 Problem Sciatica of left side M54.32 Active 53313515 Problem Plantar wart of right foot B07.0 Act mitchell [id number] Problem Slow transit constipation K59.01 Acti ve 67992447 Problem Tobacco use disorder F17.200 Active 440680321 ALLERGIES No Information ENCOUNTERS Encounter Location Date Diagnosis [facility] [address] [facility] [id number] [address] [place] [phone] Feb, [place] [address] [facility] [id number] [address] [place] [phone] Feb, [place] [address] [facility] [id number] [address] [place] [phone] Feb, [place] [address] [place] [id number] [place] [phone] Feb, [place] [address] [facility] [id number] [address] [place] [phone] Jan, Sciatica of right side M54.3 1 ; Low back pain M54.5 and Major depressive disorder, recurrent episode, moderate F33.1 [place] [address] [place] [id number] [address] [place] [phone] Jan, Bipolar 1 disorder, mixed F3 1.60 [place] [address] [place] [id number] [address] [place] [phone] Dec, Normal pelvic exam Z01.419 [place] [address] [place] [id number] [address] [place] [phone] Dec, Bipolar 1 disorder, mixed F3 1.60 [place] [address] [place] [id number] [address] [place] [phone] Nov, Bipolar 1 disorder, mixed F3 1.60 [place] [address] [place] [id number] [address] [place] [phone] Nov, Bipolar 1 disorder, mixed F3 1.60 ; Generalized anxiety disorder F41.1 ; Tobacco use disorder F17.200 and Other long chain beamer (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 Z79.899 [facility] [address] [facility] [id number] [address] [place] [id number] Nov, [facility] [address] [facility] [id number] [address] [place] [id number] Nov, Bipolar 1 disorder, mixed F3 1.60 [facility] [address] [facility] [id number] [address] [place] [phone] October, Bipolar 1 disorder, mixed F3 1.60 [facility] [address] [facility] [id number] [address] [place] [phone] October, Bipolar 1 disorder, mixed F3 1.60 [place] [address] [facility] [id number] [address] [place] [phone] October, [facility] [address] [facility] [id number] [address] [place] [phone] October, Bipolar 1 disorder, mixed F3 1.60 ; Generalized anxiety disorder F41.1 and Tobacco use disorder F17.200 [place] [address] [place] [id number] [address] [place] [id number] Sep, [facility] [address] [place] [id number] [address] [place] [phone] Sep, [facility] ; Major depressive disorder, recurrent episode, moderate F33.1 ; Allergic rhinitis J30.9 ; Bipolar 1 disorder, mixed F31.60 ; Fibromyalgia M79.7 ; Hyperlipidemia, unspecified hyperlipidemia type E78.5 ; Hormone replacement therapy Z79.890 ; Encounter for screening for lung cancer Z12.2 and Tobacco use disorder F17.200 [facility] [address] [facility] [id number] [address] [place] [phone] Sep, Bipolar 1 disorder, mixed F3 1.60 [facility] [address] [facility] [id number] [address] [place] [phone] Sep, Other chronic pain G89.29 ; Hyperlipidemia, unspecified hyperlipidemia type E78.5 ; Breast cancer screening Z12.31 and Post menopausal syndrome N95.1 [place] [address] [place] [id number] [address] [place] [id number] 16 Sep, 2018 Bipolar 1 disorder, mixed F3 1.60 [place] [address] [id number] Sep, Bipolar 1 disorder, mixed F3 1.60 ; Generalized anxiety disorder F41.1 and Tobacco use disorder F17.200 [place] [address] [address] Sep, Gastritis without bleeding, unspecified chronicity, unspecified gastritis type K29.70 [place] [address] [address] Sep, Exercise counseling Z71.82 [place] [address] [phone] Aug, Exercise counseling Z71.82 [place] [address] [address] Aug, Bipolar 1 disorder, mixed F3 1.60 [place] [address] [place] [id number] [address] [place] [phone] Aug, Exercise counseling Z71.82 [place] [address] [place] [id number] [address] [place] [phone] Aug, Bipolar 1 disorder, mixed F3 1.60 [place] [address] [place] [id number] [address] [place] [phone] 18 Aug, 2018 Gastritis without bleeding, unspecified chronicity, unspecified gastritis type K29.70 ; Tobacco abuse Z72.0 ; Generalized anxiety disorder F41.1 and Weight gain R63.5 [place] [address] [place] [id number] [address] [place] [phone] 14 Aug, 2018 Bipolar 1 disorder, mixed F3 1.60 ; Generalized anxiety disorder F41.1 and Tobacco use disorder F17.200 [facility] [address] [id number] [address] [place] [phone] Jul, Bipolar 1 disorder, mixed F3 1.60 [facility] [address] [id number] [address] [place] [phone] Jul, [facility] [address] [id number] [address] [place] [id number] Jul, Bipolar 1 disorder, mixed F3 1.60 [facility] [address] [id number] [address] [place] [phone] Jul, Allergic rhinitis J30.9 ; Ma darion depressive disorder, recurrent episode, moderate F33.1 and Tobacco 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 [facility] [address] [facility] [id number] [address] [place] [phone] Jun, [facility] [address] [id number] [address] [place] [phone] Jun, [facility] [address] [id number] [address] [place] [phone] Jun, Bipolar 1 disorder, mixed F3 1.60 [facility] [address] [facility] [id number] [address] [place] [phone] Jun, Bipolar 1 disorder, mixed F3 1.60 [facility] [address] [id number] [address] [place] [phone] Jun, Bipolar 1 disorder, mixed F3 1.60 [facility] [address] [id number] [address] [place] [phone] Jun, Generalized anxiety disorder F41.1 ; Tobacco abuse Z72.0 and Major depressive disorder, recurrent episode, moderate F33.1 [facility] [address] [id number] [address] [place] [phone] May, Bipolar 1 disorder, mixed F3 1.60 [facility] [address] [facility] [id number] [address] [place] [phone] May, Bipolar 1 disorder, mixed F3 1.60 and Generalized anxiety disorder F41.1 [facility] [address] [facility] [id number] [address] [place] [phone] May, Bipolar 1 disorder, mixed F3 1.60 [facility] [address] [place] [id number] [address] [place] [phone] May, Allergic rhinitis J30.9 [facility] [address] [place] [id number] [address] [place] [phone] May, Bipolar 1 disorder, mixed F3 1.60 [facility] [address] [place] [id number] [address] [place] [phone] May, [facility] [address] [facility] [id number] [address] [place] [phone] Apr, Allergic rhinitis J30.9 ; Dy sfunction of both eustachian tubes H69.83 ; History of bladder surgery Z98.890 and Cervicalgia M54.2 [facility] [address] [place] [id number] [address] [place] [phone] Mar, Bipolar 1 disorder, mixed F3 1.60 [facility] [address] [place] [id number] [address] [place] [id number] Mar, [facility] [address] [facility] [id number] [address] [place] [phone] Mar, Slow transit constipation K5 9.01 ; Encounter for immunization Z23 and Generalized anxiety disorder F41.1 [facility] [address] [facility] [id number] [address] [place] [phone] Feb, Bipolar 1 disorder, mixed F3 1.60 [facility] [address] [facility] [id number] [address] [place] [phone] Feb, Allergic rhinitis J30.9 [facility] [address] [facility] [id number] [address] [place] [id number] Feb, Bipolar 1 disorder, mixed F3 1.60 [facility] [address] [facility] [id number] [address] [place] [phone] 20 Feb, 2018 Bipolar 1 disorder, mixed F3 1.60 and Generalized anxiety disorder F41.1 [facility] [address] [facility] [id number] [address] [place] [phone] 13 Feb, 2018 Bipolar 1 disorder, mixed F3 1.60 [facility] [address] [facility] [id number] [address] [place] [phone] 11 Feb, 2018 Allergic rhinitis J30.9 [facility] [address] [facility] [id number] [address] [place] [phone] 05 Feb, 2018 [facility] [address] [facility] [id number] [address] [place] [phone] Jan, Bipolar 1 disorder, mixed F3 1.60 [facility] [address] [facility] [id number] [address] [place] [phone] Jan, Low back pain M54.5 ; Hyperl ipidemia, unspecified hyperlipidemia type E78.5 and Bipolar 1 disorder, mixed F31.60 [facility] [address] [facility] [id number] [address] [place] [phone] Jan, Bipolar 1 disorder, mixed F3 1.60 [facility] [address] [facility] [id number] [address] [place] [phone] Jan, Bipolar 1 disorder, mixed F3 1.60 [facility] [address] [facility] [id number] [address] [place] [phone] Jan, Bipolar 1 disorder, mixed F3 1.60 [facility] [address] [facility] [id number] [address] [place] [phone] Jan, Bipolar 1 disorder, mixed F3 1.60 [facility] [address] [facility] [id number] [address] [place] [phone] Dec, Bipolar 1 disorder, mixed F3 1.60 ; Generalized anxiety disorder F41.1 and Other long chain beamer (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 Z79.899 [facility] [address] [facility] [id number] [address] [place] [phone] Dec, Other long chain beamer (current) dr bin feliz Z79.899 [facility] [address] [facility] [id number] [address] [place] [phone] Dec, Bipolar 1 disorder, mixed F3 1.60 [facility] [address] [facility] [id number] [address] [place] [phone] Dec, Bipolar 1 disorder, mixed F3 1.60 [facility] [address] [facility] [id number] [address] [place] [phone] Nov, Bipolar 1 disorder, mixed F3 1.60 [facility] [address] [facility] [id number] [address] [place] [id number] Nov, Bipolar 1 disorder, mixed F3 1.60 [place] [address] [facility] [id number] [address] [place] [phone] Nov, Bipolar 1 disorder, mixed F3 1.60 [facility] [address] [facility] [id number] [address] [place] [phone] Nov, Allergic rhinitis J30.9 [facility] [address] [facility] [id number] [address] [place] [phone] Nov, Allergic rhinitis J30.9 [facility] [address] [facility] [id number] [address] [place] [phone] Nov, [facility] [address] [facility] [id number] [address] [place] [phone] Nov, Bipolar 1 disorder, mixed F3 1.60 [facility] [address] [facility] [id number] [address] [place] [phone] Nov, Fibromyalgia M79.7 and Aller gic rhinitis J30.9 [facility] [address] [facility] [id number] [address] [place] [phone] October, Bipolar 1 disorder, mixed F3 1.60 [facility] [address] [facility] [id number] [address] [place] [phone] October, Acute nasopharyngitis J00 [facility] [address] [facility] [id number] [address] [place] [phone] October, Bitten or stung by nonvenomo us insect and other nonvenomous arthropods, initial encounter W57.XXXA and Insect bite (nonvenomous) of abdominal wall, initial encounter S30.861A [facility] [address] [facility] [id number] [address] [place] [phone] October, Insect bite (nonvenomous) of abdominal wall, initial encounter S30.861A ; Bitten or stung by nonvenomous insect and other nonvenomous arthropods, initial encounter W57.XXXA ; Allergic rhinitis J30.9 and Low back pain M54.5 [facility] [address] [facility] [id number] [address] [place] [phone] October, Bipolar 1 disorder, mixed F3 1.60 [facility] [address] [facility] [id number] [address] [place] [phone] October, [facility] [address] [facility] [id number] [address] [place] [phone] October, [facility] [address] [place] [id number] [address] [place] [phone] October, Bipolar 1 disorder, mixed F3 1.60 [facility] [address] [facility] [id number] [address] [place] [phone] Sep, Bipolar 1 disorder, mixed F3 1.60 [facility] [address] [facility] [id number] [address] [place] [phone] Sep, Other chronic pain G89.29 [facility] [address] [facility] [id number] [address] [place] [phone] Sep, [facility] [address] [facility] [id number] [address] [place] [phone] Sep, Bipolar 1 disorder, mixed F3 1.60 [facility] [address] [facility] [id number] [address] [place] [phone] Sep, Allergic rhinitis J30.9 and Sciatica of left side M54.32 [facility] [address] [facility] [id number] [address] [place] [phone] Sep, Bipolar 1 disorder, mixed F3 1.60 [facility] [address] [facility] [id number] [address] [place] [phone] Sep, Bipolar 1 disorder, mixed F3 1.60 and Generalized anxiety disorder F41.1 [facility] [address] [id number] [address] [place] [phone] Aug, [facility] [address] [facility] [id number] [address] [place] [id number] Aug, Bipolar 1 disorder, mixed F3 1.60 [facility] [address] [facility] [id number] [address] [place] [phone] Aug, Bipolar 1 disorder, mixed F3 1.60 [facility] [address] [facility] [id number] [address] [place] [phone] Aug, [facility] [address] [facility] [id number] [address] [place] [phone] Aug, Generalized anxiety disorder F41.1 [facility] [address] [facility] [id number] [address] [place] [phone] Aug, Bipolar 1 disorder, mixed F3 1.60 [facility] [address] [facility] [id number] [address] [place] [phone] Aug, Plantar wart of right foot B 07.0 [facility] [address] [facility] [id number] [address] [place] [phone] Aug, Bipolar 1 disorder, mixed F3 1.60 [facility] [address] [facility] [id number] [address] [place] [phone] Jul, Bipolar 1 disorder, mixed F3 1.60 [facility] [address] [facility] [id number] [address] [place] [phone] Jul, [facility] [address] [facility] [id number] [address] [place] [phone] Jul, Bipolar 1 disorder, mixed F3 1.60 [facility] [address] [facility] [id number] [address] [place] [phone] 09 Jul, 2017 Generalized anxiety disorder F41.1 [facility] [address] [place] [id number] [address] [place] [phone] Jul, Bipolar 1 disorder, mixed F3 1.60 [facility] [address] [place] [id number] [address] [place] [id number] Jul, Acute left-sided low back pa in with left-sided sciatica M54.42 [facility] [address] [place] [id number] [address] [place] [phone] Jul, Coccydynia M53.3 [facility] [address] [place] [id number] [address] [place] [phone] Jun, Bipolar 1 disorder, mixed F3 1.60 [facility] [address] [place] [id number] [address] [place] [phone] Jun, Acute nasopharyngitis J00 [facility] [address] [place] [id number] [address] [place] [phone] Jun, Bipolar 1 disorder, mixed F3 1.60 [facility] [address] [facility] [id number] [address] [place] [phone] Jun, Fibromyalgia M79.7 [facility] [address] [facility] [id number] [address] [place] [phone] Jun, Bipolar 1 disorder, mixed F3 1.60 [facility] [address] [place] [id number] [address] [place] [phone] Jun, Fibromyalgia M79.7 and Bipol ar 1 disorder, mixed F31.60 [facility] [address] [place] [id number] [address] [place] [phone] May, Bipolar 1 disorder, mixed F3 1.60 ; Generalized anxiety disorder F41.1 and Other assisted (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 Z79.899 [place] [address] [phone] May, Bipolar 1 disorder, mixed F3 1.60 [facility] [address] [phone] 14 May, 2017 Cough R05 and Body aches R52 [facility] [place] [address] [address] 10 May, 2017 Bladder spasm N32.89 [address] cystitis without hematuria N30.00 [place] [address] [address] 07 May, 2017 Bipolar 1 disorder, mixed F3 1.60 [place] [address] [address] 30 Apr, 2017 [place] [address] [address] Apr, Major depressive disorder, r ecurrent episode, moderate F33.1 and Encounter for immunization Z23 [place] [address] [address] Apr, Bipolar 1 disorder, mixed F3 1.60 [place] [address] [address] Apr, Bipolar 1 disorder, mixed F3 1.60 [place] [address] [address] 16 Apr, 2017 Bipolar 1 disorder, mixed F3 1.60 [place] [address] [address] Apr, Yeast vaginitis B37.3 [place] [address] [address] 09 Apr, 2017 Bipolar 1 disorder, mixed F3 1.60 [facility] [address] [facility] [id number] [address] [place] [address] 07 Apr, [address] for immunization Z23 [facility] [address] [facility] [id number] [address] [place], [place] [address] Apr, Bipolar 1 disorder, mixed F3 1.60 [facility] [address] [place] [id number] [address] [place] [address] Mar, Bipolar 1 disorder, mixed F3 1.60 [facility] [address] [place] [id number] [address] [place], [place] [id number] Mar, Bipolar 1 disorder, mixed F3 1.60 [facility] [address] [place] [id number] [address] [place], [place] [id number] Mar, Imbalance R26.89 [address] for immunization Z23 [facility] [address] [place] [id number] [address] [place] [id number] Mar, Generalized anxiety disorder F41.1 [facility] [address] [place] [id number] [address] [place] [place] [address] Mar, Bipolar 1 disorder, mixed F3 1.60 [facility] [address] [id number] [address] [place] [phone] Mar, Generalized anxiety disorder F41.1 [facility] [address] [id number] [address] [place] [address] Mar, Bipolar 1 disorder, mixed F3 1.60 [facility] [address] [id number] [address] [place] [phone] Mar, Bipolar 1 disorder, mixed F3 1.60 [facility] [address] [id number] [address] [place] [address] Feb, Bipolar 1 disorder, mixed F3 1.60 [facility] [address] [id number] [address] [place] [phone] Feb, Bipolar 1 disorder, mixed F3 1.60 and Generalized anxiety disorder F41.1 [facility] [address] [facility] [id number] [address] [place] [phone] Feb, Gastritis without bleeding, unspecified chronicity, unspecified gastritis type K29.70 ; Hammer toe of right foot M20.41 and Other viral warts B07.8 [place] [address] [facility] [id number] [address] [place] [phone] Feb, Bipolar 1 disorder, mixed F3 1.60 [place] [address] [facility] [id number] [address] [place] [id number] 13 Feb, 2017 Bipolar 1 disorder, mixed F3 1.60 [place] [address] [facility] [id number] [address] [place] [id number] 05 Feb, 2017 Bipolar 1 disorder, mixed F3 1.60 [place] [address] [facility] [id number] [address] [place] [phone] Jan, Encounter for screening mamm ogram for breast cancer Z12.31 ; Other viral warts B07.8 and Allergic rhinitis J30.9 [place] [address] [facility] [id number] [address] [place] [phone] Jan, Bipolar 1 disorder, mixed F3 1.60 [place] [address] [facility] [id number] [address] [place] [id number] Jan, Bipolar 1 disorder, mixed F3 1.60 [place] [address] [facility] [id number] [address] [place] [phone] Jan, [place] [address] [facility] [id number] [address] [place] [id number] Jan, Bipolar 1 disorder, mixed F3 1.60 [place] [address] [facility] [id number] [address] [place] [phone] Jan, Bipolar 1 disorder, mixed F3 1.60 [place] [address] [facility] [id number] [address] [place] [phone] Jan, Allergic rhinitis J30.9 ; He maturia R31.9 and Colon cancer screening Z12.11 [facility] [address] [facility] [id number] [address] [place] [id number] Dec, Bipolar 1 disorder, mixed F3 1.60 [facility] [address] [facility] [id number] [address] [place] [phone] Dec, Bipolar 1 disorder, mixed F3 1.60 ; Generalized anxiety disorder F41.1 and Other assisted (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 Z79.899 [facility] [address] [facility] [id number] [address] [place] [id number] Dec, Bipolar 1 disorder, mixed F3 1.60 [facility] [address] [facility] [id number] [address] [place] [address] Dec, Bipolar 1 disorder, mixed F3 1.60 [facility] [address] [id number] [address] [place] [phone] Dec, Bipolar 1 disorder, mixed F3 1.60 [facility] [address] [facility] [id number] [address] [place] [phone] Dec, Low back pain M54.5 and Recu rrent urinary tract infection N39.0 [facility] [address] [facility] [id number] [address] [place] [id number] Nov, Bipolar 1 disorder, mixed F3 1.60 [facility] [address] [facility] [id number] [address] [place] [phone] Nov, Bipolar 1 disorder, mixed F3 1.60 [facility] [address] [facility] [id number] [address] [place] [phone] Nov, Bipolar 1 disorder, mixed F3 1.60 [facility] [address] [facility] [id number] [address] [place] [phone] Nov, Bipolar 1 disorder, mixed F3 1.60 [facility] [address] [facility] [id number] [address] [place] [address] Nov, [facility] [address] [id number] 08 Nov, 2016 Anesthesia of skin R20.0 ; F requent UTI N39.0 ; Tobacco abuse Z72.0 and Colon cancer screening Z12.11 [place] [address] [address] Nov, Bipolar 1 disorder, mixed F3 1.60 [place] [address] [place] [id number] October, Bipolar 1 disorder, mixed F3 1.60 [place] [address] [address] October, Bipolar 1 disorder, mixed F3 1.60 [place] [address] [address] October, Bipolar 1 disorder, mixed F3 1.60 [place] [address] [address] October, Bipolar 1 disorder, mixed F3 1.60 [place] [address] [address] October, Bipolar 1 disorder, mixed F3 1.60 [place] [address] [address] October, Cervicalgia M54.2 and Bipola r 1 disorder, mixed F31.60 [place] [address] [address] October, Hypertension I10 ; Hyperlipi demia, unspecified hyperlipidemia type E78.5 and Family history of thyroid disease Z83.49 [place] [address] [address] October, [place] [address] [address] October, Hypertension I10 ; Hyperlipi demia, unspecified hyperlipidemia type E78.5 and Family history of thyroid problem Z83.49 [place] [address] [facility] [id number] [address] [place] [phone] October, Bipolar 1 disorder, mixed F3 1.60 [facility] [address] [facility] [id number] [address] [place] [address] Sep, Bipolar 1 disorder, mixed F3 1.60 [facility] [address] [facility] [id number] [address] [place] [address] Sep, Bipolar 1 disorder, mixed F3 1.60 [facility] [address] [facility] [id number] [address] [place] [phone] Sep, Bipolar 1 disorder, mixed F3 1.60 [place] [address] [place] [id number] [address] [place] [phone] Sep, History of colon polyps Z86. 010 and Hematochezia K92.1 [place] [address] [place] [id number] [address] [place] [phone] Sep, Major depressive disorder, r ecurrent episode, moderate F33.1 [facility] [address] [facility] [id number] [address] [place] [phone] Sep, Bipolar 1 disorder, mixed F3 1.60 [facility] [address] [facility] [id number] [address] [place] [phone] Aug, Hot flashes due to menopause N95.1 [facility] [address] [facility] [id number] [address] [place] [phone] Aug, Bipolar 1 disorder, mixed F3 1.60 [facility] [address] [facility] [id number] [address] [place] [phone] Aug, [facility] [address] [facility] [id number] [address] [place] [phone] Aug, Bipolar 1 disorder, mixed F3 1.60 [facility] [address] [facility] [id number] [address] [place] [address] Aug, Bipolar 1 disorder, mixed F3 1.60 [place] [address] [address] Aug, Hot flashes due to menopause N95.1 ; Cervicalgia M54.2 and Ataxia R27.0 [place] [address] [address] Jul, Bipolar 1 disorder, mixed F3 1.60 [place] [address] [place] [address] Jul, Bipolar 1 disorder, mixed F3 1.60 [place] [address] Jul, Bipolar 1 disorder, mixed F3 1.60 [place] [address] Jul, Bipolar 1 disorder, mixed F3 1.60 [place] [address] [address] Jul, Bipolar 1 disorder, mixed F3 1.60 [place] [address] [address] Jul, Cervicalgia M54.2 ; Tremor R 25.1 ; Hearing abnormally acute, unspecified laterality H93.239 ; Alopecia L65.9 ; Encounter for immunization Z23 and Family history of thyroid disease Z83.49 [place] [address] [address] Jul, Bipolar 1 disorder, mixed F3 1.60 [place] [address] [address] Jun, [place] [address] [place] [address] Jun, Hearing disorder, unspecifie d laterality H93.299 [place] [address] [address] Jun, Bipolar 1 disorder, mixed F3 1.60 [place] [address] [id number] [address] [place] [address] Jun, Bipolar 1 disorder, mixed F3 1.60 [facility] [address] [id number] [address] [place] [phone] Jun, Allergic rhinitis J30.9 [facility] [address] [facility] [id number] [address] [place] [phone] Jun, Bipolar 1 disorder, mixed F3 1.60 [facility] [address] [id number] [address] [place] [address] Jun, Bipolar 1 disorder, mixed F3 1.60 [facility] [address] [id number] [address] [place] [address], [place] [address] Jun, Allergic rhinitis J30.9 [facility] [address] [facility] [id number] [address] [place] [phone] Jun, Allergic rhinitis J30.9 [facility] [address] [facility] [id number] [address] [place] [address] Jun, Bipolar 1 disorder, mixed F3 1.60 [facility] [address] [facility] [id number] [address] [place] [address] May, Bipolar 1 disorder, mixed F3 1.60 [facility] [address] [facility] [id number] [address] [place] [phone] May, Bipolar 1 disorder, mixed F3 1.60 [facility] [address] [facility] [id number] [address] [place] [phone] May, [facility] [address] [facility] [id number] [address] [place] [address] May, Bipolar 1 disorder, mixed F3 1.60 [facility] [address] [facility] [id number] [address] [place] [phone] May, Bipolar 1 disorder, mixed F3 1.60 [facility] [address] [facility] [id number] [address] [place] [phone] May, [facility] [address] [facility] [id number] [address] [place] [phone] May, [facility] [address] [facility] [id number] [address] [place] [phone] May, [facility] [address] [facility] [id number] [address] [place] [phone] May, Abdominal pain, unspecified location R10.9 [facility] [address] [id number] [address] [place] [phone] May, [facility] [id number] [place] [address] Apr, Hematuria R31.9 ; Ataxia R27 .0 and Hearing loss, unspecified laterality H91.90 [facility] [id number] [place] [address] Apr, Bipolar 1 disorder, mixed F3 1.60 [facility] [address] [id number] [address] [place] [address] Apr, Acute effusion of both middl e ears H65.193 [facility] [address] [address] Apr, Hematuria R31.9 and Pyelonep hritis N12 [facility] [address] [place] [address] [id number] [address] [place] [phone] Apr, [facility] [id number] [address] [place] [phone] Mar, Bipolar 1 disorder, mixed F3 1.60 [facility] [address] [place] [address] [id number] [address] [place] [address] Mar, [facility] [id number] [place] [address] Mar, Bipolar 1 disorder, mixed F3 1.60 [facility] [address] [address] [id number] [address] [place] [address] Mar, Bipolar 1 disorder, mixed F3 1.60 [place] [address] [place] [id number] [address] [place] [address] Mar, Encounter for immunization Z 23 and Gastritis without bleeding, unspecified chronicity, unspecified gastritis type K29.70 [place] [address] [place] [id number] [address] [place] [address] Mar, Bipolar 1 disorder, mixed F3 1.60 and Grief F43.20 [place] [address] [place] [id number] [place] [address] Mar, Gastritis without bleeding, unspecified chronicity, unspecified gastritis type K29.70 [place] [address] [address] Mar, Bipolar 1 disorder, mixed F3 1.60 [place] [address] [address] Mar, Gastritis without bleeding, unspecified chronicity, unspecified gastritis type K29.70 [place] [address] [place] [id number] [address] [place] [address] Mar, [place] [address] [address] Feb, Bipolar 1 disorder, mixed F3 1.60 [place] [address] [place] [id number] [place] [id number] Feb, Bipolar 1 disorder, mixed F3 1.60 and Grief F43.20 [place] [address] [place] [id number] [place] [id number] Feb, Gastritis without bleeding, unspecified chronicity, unspecified gastritis type K29.70 [place] [address] [place] [id number] [place] [phone] 14 Feb, 2016 Bipolar 1 disorder, mixed F3 1.60 [facility] [id number] [address] [place] [phone] Feb, Gastroesophageal reflux dise ase, esophagitis presence not specified K21.9 [facility] [address] [place] [id number] [place] [address] Jan, Bipolar 1 disorder, mixed F3 1.60 [facility] [address] [place] [id number] [place], [place] [id number] Jan, Bipolar 1 disorder, mixed F3 1.60 and Unsteady gait R26.81 [place] [address] [place] [id number] [place] [address] Jan, Bipolar 1 disorder, mixed F3 1.60 [place] [address] Jan, Bipolar 1 disorder, mixed F3 1.60 and Other assisted (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 Z79.899 [place] [address] [place] [address] Jan, Bipolar 1 disorder, mixed F3 1.60 [place] [address] [place] [id number] [place] [id number] Jan, Bipolar 1 disorder, mixed F3 1.60 [place] [address] [place] [id number] [address] [place] [address] Jan, Bipolar 1 disorder, mixed F3 1.60 ; Grief F43.20 and Other long chain beamer (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 Z79.899 [place] [address] [place] [address] Jan, Bipolar 1 disorder, mixed F3 1.60 [place] [address] [place] [id number] [address] [place] [address] Dec, [place] [address] [place] [address] Dec, Bipolar 1 disorder, mixed F3 1.60 ; Vitamin D deficiency, unspecified E55.9 ; H/O allergic rhinitis Z87.09 ; Other chronic pain G89.29 and Dorsalgia, unspecified M54.9 [facility] [address] [id number] [address] [place] [address] Dec, [facility] [address] [facility] [id number] [address] [place] [address] Dec, Bipolar 1 disorder, mixed F3 1.60 [facility] [address] [facility] [id number] [address] [place] [address] Dec, Major depressive disorder, r ecurrent episode, moderate F33.1 [place] [address] [facility] [id number] [address] [place] [id number] Dec, Major depressive disorder, r ecurrent episode, moderate F33.1 [place] [address] [facility] [id number] [address] [place] [address] Nov, [place] [address] [facility] [id number] [address] [place] [id number] Nov, Bipolar 1 disorder, mixed F3 1.60 [place] [address] [facility] [id number] [address] [place] [phone] Nov, Major depressive disorder, r ecurrent episode, moderate F33.1 [place] [address] [facility] [id number] [address] [place] [address] Nov, Cervicalgia M54.2 ; Arthralg ia of hip, unspecified laterality M25.559 ; Allergic rhinitis J30.9 and Hormone replacement therapy Z79.890 [facility] [address] [facility] [id number] [address] [place] [address] Nov, Other seasonal allergic rhin itis J30.2 [facility] [address] [id number] [address] [place] [phone] October, Major depressive disorder, r ecurrent episode, moderate F33.1 [facility] [address] [facility] [id number] [address] [place] [address] October, Major depressive disorder, r ecurrent episode, moderate F33.1 and Arthralgia of hip, unspecified laterality M25.559 [place] [address] [facility] [id number] [address] [place] [address] October, Grief F43.20 ; Hypertension I10 ; Hyperlipidemia, unspecified hyperlipidemia type E78.5 ; Other chronic pain G89.29 and Allergic rhinitis, unspecified allergic rhinitis type J30.9 [place] [address] [facility] [id number] [address] [place] [id number] October, Major depressive disorder, r ecurrent episode, moderate F33.1 [place] [address] [facility] [id number] [address] [place] [address] Sep, Major depressive disorder, r ecurrent episode, moderate F33.1 [place] [address] [place] [id number] [place] [id number] Sep, [place] [address] [place] [id number] [place] [address] Sep, Major depressive disorder, r ecurrent episode, moderate F33.1 [place] [address] [place] [id number] [place] [phone] Sep, Grief F43.20 [place] [address] [place] [id number] [place] [address] Aug, Major depressive disorder, r ecurrent episode, moderate F33.1 [place] [address] [place] [id number] [place] [address] Aug, Bipolar 1 disorder, mixed F3 1.60 [place] [address] [place] [id number] [place] [phone] Aug, Allergic rhinitis J30.9 ; Ce rvicalgia M54.2 and Low back pain M54.5 [place] [address] [place] [id number] [place] [id number] Aug, Major depressive disorder, r ecurrent episode, moderate F33.1 [facility] [address] [place] [id number] [place] [address] Aug, Sinusitis J32.9 and Tobacco 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 [facility] [address] [facility] [id number] [address] [place] [address] Aug, [facility] [address] [place] [id number] [place] [address] Aug, Depressive disorder, not els ewhere classified F32.9 ; Hormone replacement therapy Z79.[address] scan, head R93.0 [facility] [address] [facility] [id number] [address] [place] [address] Aug, Major depressive disorder, r ecurrent episode, moderate F33.1 [facility] [address] [place] [id number] [place] [phone] Jul, Major depressive disorder, r ecurrent episode, moderate F33.1 [place] [address] [place] [id number] [place] [address] Jul, Abdominal pain R10.9 and Hyp ertension I10 [facility] [address] [facility] [id number] [address] [place] [phone] Jul, [facility] [address] [facility] [id number] [address] [place] [phone] Jul, Major depressive disorder, r ecurrent episode, moderate F33.1 [facility] [address] [place] [id number] [address] [place] [phone] Jul, [facility] [address] [facility] [id number] [address] [place] [phone] Jul, [facility] [address] [facility] [id number] [address] [place] [phone] Jun, [facility] [address] [place] [id number] [address] [place] [phone] Jun, Depressive disorder, not els ewhere classified F32.9 [facility] [address] [place] [id number] [address] [place] [phone] Jun, [facility] [address] [id number] [address] [place] [phone] Jun, [facility] [address] [id number] [address] [place] [phone] Jun, Arthralgia of hip, unspecifi ed laterality M25.559 ; Bruising, spontaneous R23.3 and Night sweats R61 [facility] [address] [id number] [address] [place] [phone] Jun, [facility] [address] [id number] [address] [place] [phone] Jun, [facility] [address] [id number] [address] [place] [phone] May, [facility] [address] [place] [id number] [address] [place] [id number] May, Myalgia M79.1 and Screening, lipid Z13.220 [facility] [address] [facility] [id number] [address] [place] [phone] Apr, Status post cervical spinal fusion Z98.1 ; Fibromyalgia M79.7 and Unsteady gait R26.81 [facility] [address] [id number] [address] [place] [phone] Nov, [facility] [address] [id number] [address] [place] [phone] Nov, [facility] [address] [id number] [address] [place] [phone] October, [facility] [address] [id number] [address] [place] [phone] October, [facility] [address] [facility] [id number] [address] [place] [phone] October, [facility] [address] [facility] [id number] [address] [place] [phone] October, [facility] [address] [id number] [address] [place] [phone] October, [facility] [address] [id number] [address] [place] [id number] October, Dysuria 788.1 ; Nausea 787.0 2 and Urinary tract infection 599.0 [facility] [address] [id number] [address] [place] [address], [place] [address] Sep, [facility] [address] [id number] [address] [place] [id number] Sep, [facility] [address] [id number] [address] [place] [address], [place] [address] Aug, [facility] [address] [id number] [address] [place] [phone] Aug, [facility] [address] [id number] [address] [place] [id number] Aug, [facility] [address] [id number] [address] [place] [phone] Aug, [facility] [address] [id number] [address] [place] [phone] Aug, [facility] [address] [id number] [address] [place] [id number] Aug, [facility] [address] [id number] [address] [place] [phone] Aug, [facility] [address] [id number] [address] [place] [id number] Aug, [facility] [address] [id number] [address] [place] [address] Aug, [facility] [address] [id number] [address] [place] [phone] Aug, [facility] [address] [id number] [address] [place] [phone] Aug, [facility] [address] [id number] [address] [place] [address], [place] [address] 13 Aug, 2014 [facility] [address] [id number] [address] [place] [address], [place] [address] 13 Aug, 2014 [facility] [address] [id number] [address] [place] [address], [place] [address] 11 Aug, 2014 [facility] [address] [id number] [address] [place] [address], [place] [address] 11 Aug, 2014 [facility] [address] [id number] [address] [place] [address], [place] [address] 06 Aug, 2014 [facility] [address] [id number] [address] [place] [address], [place] [address] 06 Aug, 2014 [facility] [address] [id number] [address] [place] [address], [place] [address] 05 Aug, 2014 [facility] [address] [id number] [address] [place] [address], [place] [address] 05 Aug, 2014 [facility] [address] [id number] [address] [place] [address], [place] [address] 04 Aug, 2014 [facility] [address] [id number] [address] [place] [address], [place] [address] Aug, [facility] [address] [id number] [address] [place] [address], [place] [address] Aug, [facility] [address] [id number] [address] [place] [address], [place] [address] Jul, 2014 [facility] [address] [id number] [address] [place] [address], [place] [address] Jul, [facility] [address] [id number] [address] [place] [address], [place] [address] Jul, [facility] [address] [id number] [address] [place] [address], [place] [address] Jul, 2014 [facility] [address] [id number] [address] [place] [address], [place] [address] Jul, 2014 [facility] [address] [id number] [address] [place] [address], [place] [address] Jul, 2014 [facility] [address] [id number] [address] [place] [address], [place] [address] Jul, 2014 [facility] [address] [id number] [address] [place] [address], [place] [address] Jul, 2014 [facility] [address] [id number] [address] [place] [address], [place] [address] Jul, 2014 [facility] [address] [id number] [address] [place] [address], [place] [address] Jul, 2014 [facility] [address] [id number] [address] [place] [address], [place] [address] Jul, 2014 [facility] [address] [id number] [address] [place] [address], [place] [address] Jul, 2014 [facility] [address] [id number] [address] [place] [address], [place] [address] Jul, [facility] [address] [id number] [address] [place] [address], [place] [address] Jul, [facility] [address] [id number] [address] [place] [address], [place] [address] Jun, [facility] [address] [id number] [address] [place] [address], [place] [address] Jun, [facility] [address] [id number] [address] [place] [id number] Jun, [facility] [address] [id number] [address] [place] [address] Jun, [facility] [address] [id number] [address] [place] [phone] Jun, [facility] [address] [id number] [address] [place] [phone] Jun, [facility] [address] [id number] [address] [place] [address], [place] [address] May, [facility] [address] [id number] [address] [place] [address], [place] [address] May, [facility] [address] [id number] [address] [place] [address], [place] [address] May, [facility] [address] [id number] [address] [place] [address], [place] [address] May, [facility] [address] [id number] [address] [place] [address], [place] [address] May, [facility] [address] [id number] [address] [place] [address], [place] [address] May, [facility] [address] [id number] [address] [place] [address], [place] [address] Apr, [facility] [address] [id number] [address] [place] [address], [place] [address] Apr, [facility] [address] [id number] [address] [place] [address], [place] [address] Apr, [facility] [address] [id number] [address] [place] [address], [place] [address] Apr, [facility] [address] [id number] [address] [place] [address], [place] [address] Apr, [facility] [address] [id number] [address] [place] [address], [place] [address] Apr, [facility] [address] [id number] [address] [place] [address], [place] [address] Mar, [facility] [address] [id number] [address] [place] [address], [place] [address] Mar, [facility] [address] [id number] [address] [place] [address], [place] [address] Mar, [facility] [address] [id number] [address] [address] Mar, [facility] [address] [id number] [address] [place] [address], [place] [address] Mar, 2013 [facility] [address] [id number] [address] [place] [address], [place] [address] Mar, [facility] [address] [id number] [address] [place] [address], [place] [address] Mar, 2013 [facility] [address] [id number] [address] [place] [address], [place] [address] Mar, 2013 [facility] [address] [id number] [address] [place] [address], [place] [address] Mar, [facility] [address] [id number] [address] [place] [address], [place] [address] Mar, 2013 [facility] [address] [id number] [address] [place] [address], [place] [address] Mar, [facility] [address] [id number] [address] [place] [address], [place] [address] Mar, [facility] [address] [id number] [address] [place] [address], [place] [address] 30 Feb, 2013 [facility] [address] [id number] [address] [place] [address], [place] [address] 29 Sep, 2013 [facility] [address] [id number] [address] [place] [address], [place] [address] 29 Sep, 2013 [facility] [address] [id number] [address] [place] [address] 23 Sep, 2013 [facility] [address] [id number] [address] [place] [address], [place] [address] 23 Sep, 2013 [facility] [address] [id number] [address] [place] [address], [place] [address] 08 Feb, 2013 [facility] [address] [id number] [address] [place] [address], [place] [address] 08 Feb, 2013 [facility] [address] [id number] [facility] [place] [address] Jan, [facility] [address] [id number] [facility] [place] [address] Jan, [facility] [address] [id number] [facility] [place] [address] Jan, [facility] [address] [id number] [address] [place] [address], [place] [address] Dec, [facility] [address] [id number] [address] [place] [address], [place] [address] Dec, [facility] [address] [id number] [address] [place] [address], [place] [address] Dec, [facility] [address] [id number] [address] [place] [address], [place] [address] Dec, [facility] [address] [id number] [address] [place] [address], [place] [address] Sep, [facility] [address] [id number] [address] [place] [address], [place] [address] Sep, [facility] [address] [id number] [address] [place] [address], [place] [address] Sep, [facility] [address] [id number] [address] [place] [address], [place] [address] Sep, [facility] [address] [id number] [address] [place] [address], [place] [address] Sep, [facility] [address] [id number] [address] [place] [address], [place] [address] Sep, [facility] [address] [id number] [address] [place] [address], [place] [address] Sep, [facility] [address] [id number] [address] [place] [address], [place] [address] Sep, [facility] [address] [id number] [address] [place] [address], [place] [address] Aug, [facility] [address] [id number] [address] [place] [address], [place] [address] Aug, [facility] [address] [id number] [address] [place] [address], [place] [address] May, [facility] [address] [id number] [address] [place] [address], [place] [address] May, [facility] [address] [id number] [address] [place] [address], [place] [address] Apr, [facility] [address] [id number] [address] [place] [address], [place] [address] Apr, [facility] [address] [id number] [address] [place] [address], [place] [address] Apr, [facility] [address] [id number] [address] [place] [address], [place] [address] Apr, [facility] [address] [id number] [address] [place] [address], [place] [address] Apr, [facility] [address] [id number] [address] [place] [address], [place] [address] Apr, [facility] [address] [id number] [address] [place] [address], [place] [address] May, [facility] [address] [id number] [address] [place] [address], [place] [address] 18 May, 2012 [facility] [address] [id number] [address] [place] [address], [place] [address] 15 May, 2012 [facility] [address] [id number] [address] [place] [address], [place] [address] 15 May, 2012 [facility] [address] [id number] [address] [place] [address], [place] [address] 13 May, 2012 [facility] [address] [id number] [address] [place] [address], [place] [address] 13 May, 2012 [facility] [address] [id number] [address] [place] [address] 13 Apr, 2012 [facility] [address] [id number] [address] [place] [address], [place] [address] 13 Apr, 2012 [facility] [address] [id number] [address] [place] [address] 08 Apr, 2012 [facility] [address] [id number] [address] [place] [address], [place] [address] Apr, [facility] [address] [id number] [address] [place] [address] 08 Apr, 2012 [facility] [address] [id number] [address] [place] [address], [place] [address] Apr, [facility] [address] [id number] [address] [place] [address], [place] [address] Apr, [facility] [address] [id number] [address] [place] [address], [place] [address] Apr, [facility] [address] [id number] [address] [place] [address], [place] [address] Apr, [facility] [address] [id number] [address] [place] [address] Apr, [facility] [address] [id number] [address] [place] [address] Mar, [facility] [address] [id number] [address] [place] [address] Mar, [facility] [address] [id number] [address] [place] [address] Mar, [facility] [address] [id number] [address] [place] [address] Mar, [facility] [address] [id number] [address] [place] [address], [place] [address] Mar, [facility] [address] [id number] [address] [place] [address] Mar, [facility] [address] [id number] [facility] [place] [address] Mar, [facility] [address] [id number] [address] [place] [address], [place] [address] Mar, [facility] [address] [id number] [address] [place] [address], [place] [address] Mar, [facility] [address] [id number] [address] [place] [address], [place] [address] 25 Feb, 2012 [facility] [address] [id number] [address] [place] [address], [place] [address] 16 Feb, 2012 [facility] [address] [id number] [address] [place] [address], [place] [address] Feb, [facility] [address] [id number] [address] [place] [address], [place] [address] Jan, [facility] [address] [id number] [address] [place] [address], [place] [address] Jan, [facility] [address] [id number] [address] [place] [address], [place] [address] Jan, [facility] [address] [id number] [address] [place] [address], [place] [address] Jan, [facility] [address] [id number] [address] [place] [address], [place] [address] Jan, [facility] [address] [id number] [address] [place] [address], [place] [address] Jan, [facility] [address] [id number] [address] [place] [address], [place] [address] 16 Jan, 2012 [facility] [address] [id number] [address] [place] [address], [place] [address] Jan, [facility] [address] [id number] [address] [place] [address], [place] [address] Jan, [facility] [address] [id number] [address] [place] [address], [place] [address] Jan, [facility] [address] [id number] [address] [place] [address], [place] [address] Dec, [facility] [address] [id number] [address] [place] [address], [place] [address] Dec, [facility] [address] [id number] [address] [place] [address], [place] [address] Dec, [facility] [address] [id number] [address] [place] [address], [place] [address] Dec, [facility] [address] [id number] [address] [place] [address], [place] [address] Nov, [facility] [address] [id number] [address] [place] [address], [place] [address] Nov, [facility] [address] [id number] [address] [place] [address], [place] [address] Nov, [facility] [address] [id number] [address] [place] [address], [place] [address] October, [facility] [address] [id number] [address] [place] [address], [place] [address] October, [facility] [address] [id number] [address] [place] [address], [place] [address] October, [facility] [address] [id number] [address] [place] [address], [place] [address] October, [facility] [address] [id number] [address] [place] [address], [place] [address] October, [facility] [address] [id number] [address] [place] [address], [place] [address] October, [facility] [address] [id number] [address] [place] [address], [place] [address] Aug, [facility] [address] [id number] [address] [place] [address], [place] [address] Mar, [facility] [address] [id number] [address] [place] [id number] 16 Nov, 2010 [facility] [address] [facility] [id number] [address] [place] [address] May, [facility] [address] [facility] [id number] [address] [place] [address] May, [facility] [address] [facility] [id number] [address] [place] [address] Apr, [facility] [address] [facility] [id number] [address] [place] [address] Mar, [facility] [address] [facility] [id number] [address] [place] [phone] Mar, IMMUNIZATIONS No Known Immunizations SOCIAL HISTORY Never Assessed REASON FOR VISIT PLAN OF CARE VITAL SIGNS Height 64 in 2014-03-24 Weight 152.31 lbs 2014-03-24 Temperature 98.3 degrees Fahrenheit 2014-03-24 Heart Rate 84 bpm 2014-03-24 Respiratory Rate 18 2014-03-24 Blood pressure systolic 132 mmHg 2014-03-24 Blood pressure diastolic 74 mmHg 2014-03-24 MEDICATIONS Unknown Medications RESULTS No Results PROCEDURES Procedure Date Ordered Result Body Site THER/PROPH/DIAG INJ, SC/IM Mar 24, 2014 COMPLETE CBC W/AUTO DIFF WBC Mar 24, 2014 INJ TRIAMCINOLONE ACETONIDE 10 MG Mar 24, 2014 COMPREHEN METABOLIC PANEL Mar 24, 2014 VENIPUNCT, ROUTINE* Mar 24, 2014 INSTRUCTIONS MEDICATIONS ADMINISTERED No Known Medications [...]
--- OUTSIDE RECORDS SUMMARY | 2019-06-19 05:05 | XMS REPORT ---
Author Author Sydnie HANCOCK [facility] Address [address] [place] [address] Care Team Providers Care Hotel Director Name Role Phone NAHOMY HANCOCK Unavailable PROBLEMS Type Condition ICD9-CM Code NGN68-FN Code Onset Dates Condition S tatus SNOMED Code Problem Abnormal CT scan, head R93.0 Active 678994380 Problem Bruising, spontaneous R23.3 Active 658213703 Problem Sensorineural hearing loss (SNHL) of both ears H90 .3 Active 203344387 Problem Arthralgia of hip, unspecified laterality M25.559 Active 99389621 Problem Night sweats R61 Active 7083205 0 Problem Grief F43.20 Active 06441146 Problem Hypertension I10 Active 9514975 3 Problem Major depressive disorder, recurrent episode, moderate F33.1 Active 685971350 Problem Imbalance R26.89 Active 063102807 Problem Age-related osteoporosis without current pathological fracture M81.0 Active 94231464 Problem Hormone replacement therapy Z79.890 Ac tive 971353866 Problem Ataxia R27.0 Active 42342726 Problem Bipolar 1 disorder, mixed F31.60 Acti ve 85315468 Problem Allergic rhinitis J30.9 Active 61 415604 Problem Hearing loss, unspecified laterality H91.90 Active 41803370 Problem Generalized anxiety disorder F41.1 A ctive 04440543 Problem History of colon polyps Z86.010 Active 813479965 Problem Hammer toe of right foot M20.41 Activ e 115055680 Problem Hematuria, unspecified type R31.9 Ac tive 79886612 Problem Fibromyalgia M79.7 Active 3116219 7 Problem Bladder spasm N32.89 Active 960747 006 Problem Acute left-sided low back pain with left-sided sciatica M54.42 Active 301011085 Problem Post menopausal syndrome N95.1 Activ e 483438007 Problem Hyperlipidemia, unspecified hyperlipidemia type E7 8.5 Active 21908493 Problem Sciatica of right side M54.31 Active 42629308 Problem Other chronic pain G89.29 Active 8 1888906 Problem Gastritis without bleeding, unspecified chronicity, unspecified gastritis type K29.70 Active 059210940 Problem Sciatica of left side M54.32 Active 80209564 Problem Plantar wart of right foot B07.0 Act mitchell [id number] Problem Slow transit constipation K59.01 Acti ve 96883058 Problem Tobacco use disorder F17.200 Active 728317658 ALLERGIES No Information ENCOUNTERS Encounter Location Date Diagnosis [facility] [address] [facility] [id number] [address] [place] [address] Feb, [place] [address] [facility] [id number] [place] [phone] Feb, [place] [address] [facility] [id number] [address] [place] [address] Feb, [place] [address] [place] [id number] [place] [address] Feb, [facility] [address] [facility] [id number] [address] [place] [address] Jan, Sciatica of right side M54.3 1 ; Low back pain M54.5 and Major depressive disorder, recurrent episode, moderate F33.1 [place] [address] [place] [id number] [address] [place] [address] Jan, Bipolar 1 disorder, mixed F3 1.60 [place] [address] [place] [id number] [address] [place] [address] Dec, Normal pelvic exam Z01.419 [place] [address] [place] [id number] [address] [place] [address] Dec, Bipolar 1 disorder, mixed F3 1.60 [place] [address] [place] [id number] [address] [place] [address] Nov, Bipolar 1 disorder, mixed F3 1.60 [place] [address] [place] [id number] [address] [place] [address] Nov, Bipolar 1 disorder, mixed F3 1.60 ; Generalized anxiety disorder F41.1 ; Tobacco use disorder F17.200 and Other 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 frame tender (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 Z79.899 [facility] [address] [facility] [id number] [address] [place] [address] Nov, [facility] [address] [facility] [id number] [address] [place] [address] Nov, Bipolar 1 disorder, mixed F3 1.60 [facility] [address] [facility] [id number] [address] [place] [address] October, Bipolar 1 disorder, mixed F3 1.60 [facility] [address] [facility] [id number] [address] [place] [address] October, Bipolar 1 disorder, mixed F3 1.60 [place] [address] [facility] [id number] [address] [place] [address] October, [facility] [address] [facility] [id number] [address] [place] [address] October, Bipolar 1 disorder, mixed F3 1.60 ; Generalized anxiety disorder F41.1 and Tobacco use disorder F17.200 [place] [address] [place] [id number] [address] [place] [address] Sep, [facility] [address] [place] [id number] [address] [place] [address] Sep, [facility] Z00.00 ; Major depressive disorder, recurrent episode, moderate F33.1 ; Allergic rhinitis J30.9 ; Bipolar 1 disorder, mixed F31.60 ; Fibromyalgia M79.7 ; Hyperlipidemia, unspecified hyperlipidemia type E78.5 ; Hormone replacement therapy Z79.890 ; Encounter for screening for lung cancer Z12.2 and Tobacco use disorder F17.200 [facility] [address] [facility] [id number] [address] [place] [address] Sep, Bipolar 1 disorder, mixed F3 1.60 [facility] [address] [facility] [id number] [address] [place] [address] Sep, Other chronic pain G89.29 ; Hyperlipidemia, unspecified hyperlipidemia type E78.5 ; Breast cancer screening Z12.31 and Post menopausal syndrome N95.1 [place] [address] [place] [id number] [address] [place] [address] 16 Sep, 2018 Bipolar 1 disorder, mixed F3 1.60 [place] [address] [address] Sep, Bipolar 1 disorder, mixed F3 1.60 ; Generalized anxiety disorder F41.1 and Tobacco use disorder F17.200 [place] [address] [address] Sep, Gastritis without bleeding, unspecified chronicity, unspecified gastritis type K29.70 [place] [address] [address] Sep, Exercise counseling Z71.82 [place] [address] [address] Aug, Exercise counseling Z71.82 [place] [address] [address] Aug, Bipolar 1 disorder, mixed F3 1.60 [place] [address] [place] [id number] [address] [place] [address] Aug, Exercise counseling Z71.82 [place] [address] [place] [id number] [address] [place] [address] Aug, Bipolar 1 disorder, mixed F3 1.60 [place] [address] [place] [id number] [address] [place] [address] 18 Aug, 2018 Gastritis without bleeding, unspecified chronicity, unspecified gastritis type K29.70 ; Tobacco abuse Z72.0 ; Generalized anxiety disorder F41.1 and Weight gain R63.5 [place] [address] [place] [id number] [address] [place] [address] 14 Aug, 2018 Bipolar 1 disorder, mixed F3 1.60 ; Generalized anxiety disorder F41.1 and Tobacco use disorder F17.200 [facility] [address] [id number] [address] [place] [address] Jul, Bipolar 1 disorder, mixed F3 1.60 [facility] [address] [id number] [address] [place] [address] Jul, [facility] [address] [id number] [address] [place] [address] Jul, Bipolar 1 disorder, mixed F3 1.60 [facility] [address] [id number] [address] [place] [address] Jul, Allergic rhinitis J30.9 ; Ma darion depressive disorder, recurrent episode, moderate F33.1 and Tobacco 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 [facility] [address] [facility] [id number] [address] [place] [address] Jun, [facility] [address] [id number] [address] [place] [address] Jun, [facility] [address] [id number] [address] [place] [address] Jun, Bipolar 1 disorder, mixed F3 1.60 [facility] [address] [facility] [id number] [address] [place] [address] Jun, Bipolar 1 disorder, mixed F3 1.60 [facility] [address] [id number] [address] [place] [address] Jun, Bipolar 1 disorder, mixed F3 1.60 [facility] [address] [id number] [address] [place] [address] Jun, Generalized anxiety disorder F41.1 ; Tobacco abuse Z72.0 and Major depressive disorder, recurrent episode, moderate F33.1 [facility] [address] [id number] [address] [place] [address] May, Bipolar 1 disorder, mixed F3 1.60 [facility] [address] [facility] [id number] [address] [place] [address] May, Bipolar 1 disorder, mixed F3 1.60 and Generalized anxiety disorder F41.1 [facility] [address] [facility] [id number] [address] [place] [address] May, Bipolar 1 disorder, mixed F3 1.60 [facility] [address] [place] [id number] [address] [place] [address] May, Allergic rhinitis J30.9 [facility] [address] [place] [id number] [address] [place] [address] May, Bipolar 1 disorder, mixed F3 1.60 [facility] [address] [place] [id number] [address] [place] [address] May, [facility] [address] [facility] [id number] [address] [place] [address] Apr, Allergic rhinitis J30.9 ; Dy sfunction of both eustachian tubes H69.83 ; History of bladder surgery Z98.890 and Cervicalgia M54.2 [facility] [address] [place] [id number] [address] [place] [address] Mar, Bipolar 1 disorder, mixed F3 1.60 [facility] [address] [place] [id number] [address] [place] [address] Mar, [facility] [address] [facility] [id number] [address] [place] [address] Mar, Slow transit constipation K5 9.01 ; Encounter for immunization Z23 and Generalized anxiety disorder F41.1 [facility] [address] [facility] [id number] [address] [place] [address] Feb, Bipolar 1 disorder, mixed F3 1.60 [facility] [address] [facility] [id number] [address] [place] [address] Feb, Allergic rhinitis J30.9 [facility] [address] [facility] [id number] [address] [place] [address] Feb, Bipolar 1 disorder, mixed F3 1.60 [facility] [address] [facility] [id number] [address] [place] [phone] 20 Feb, 2018 Bipolar 1 disorder, mixed F3 1.60 and Generalized anxiety disorder F41.1 [facility] [address] [facility] [id number] [address] [place] [id number] 13 Feb, 2018 Bipolar 1 disorder, mixed F3 1.60 [facility] [address] [facility] [id number] [address] [place] [id number] 11 Feb, 2018 Allergic rhinitis J30.9 [facility] [address] [facility] [id number] [address] [place] [phone] 05 Feb, 2018 [facility] [address] [facility] [id number] [address] [place] [id number] Jan, Bipolar 1 disorder, mixed F3 1.60 [facility] [address] [facility] [id number] [address] [place] [address] Jan, Low back pain M54.5 ; Hyperl ipidemia, unspecified hyperlipidemia type E78.5 and Bipolar 1 disorder, mixed F31.60 [facility] [address] [facility] [id number] [address] [place] [address] Jan, Bipolar 1 disorder, mixed F3 1.60 [facility] [address] [facility] [id number] [address] [place] [address] Jan, Bipolar 1 disorder, mixed F3 1.60 [facility] [address] [facility] [id number] [address] [place] [address] Jan, Bipolar 1 disorder, mixed F3 1.60 [facility] [address] [facility] [id number] [address] [place] [address] Jan, Bipolar 1 disorder, mixed F3 1.60 [facility] [address] [facility] [id number] [address] [place] [address] Dec, Bipolar 1 disorder, mixed F3 1.60 ; Generalized anxiety disorder F41.1 and Other 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 frame tender (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 Z79.899 [facility] [address] [facility] [id number] [address] [place] [address] Dec, Other 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 frame tender (current) dr bin feliz Z79.899 [facility] [address] [facility] [id number] [address] [place] [address] Dec, Bipolar 1 disorder, mixed F3 1.60 [facility] [address] [facility] [id number] [address] [place] [address] Dec, Bipolar 1 disorder, mixed F3 1.60 [facility] [address] [facility] [id number] [address] [place] [id number] Nov, Bipolar 1 disorder, mixed F3 1.60 [facility] [address] [facility] [id number] [address] [place] [address] Nov, Bipolar 1 disorder, mixed F3 1.60 [place] [address] [facility] [id number] [address] [place] [address] Nov, Bipolar 1 disorder, mixed F3 1.60 [facility] [address] [facility] [id number] [address] [place] [address] Nov, Allergic rhinitis J30.9 [facility] [address] [facility] [id number] [address] [place] [address] Nov, Allergic rhinitis J30.9 [facility] [address] [facility] [id number] [address] [place] [address] Nov, [facility] [address] [facility] [id number] [address] [place] [address] Nov, Bipolar 1 disorder, mixed F3 1.60 [facility] [address] [facility] [id number] [address] [place] [address] Nov, Fibromyalgia M79.7 and Aller gic rhinitis J30.9 [facility] [address] [facility] [id number] [address] [place] [address] October, Bipolar 1 disorder, mixed F3 1.60 [facility] [address] [facility] [id number] [address] [place] [address] October, Acute nasopharyngitis J00 [facility] [address] [facility] [id number] [address] [place] [address] October, Bitten or stung by nonvenomo us insect and other nonvenomous arthropods, initial encounter W57.XXXA and Insect bite (nonvenomous) of abdominal wall, initial encounter S30.861A [facility] [address] [facility] [id number] [address] [place] [address] October, Insect bite (nonvenomous) of abdominal wall, initial encounter S30.861A ; Bitten or stung by nonvenomous insect and other nonvenomous arthropods, initial encounter W57.XXXA ; Allergic rhinitis J30.9 and Low back pain M54.5 [facility] [address] [facility] [id number] [address] [place] [address] October, Bipolar 1 disorder, mixed F3 1.60 [facility] [address] [facility] [id number] [address] [place] [address] October, [facility] [address] [facility] [id number] [address] [place] [address] October, [facility] [address] [place] [id number] [address] [place] [address] October, Bipolar 1 disorder, mixed F3 1.60 [facility] [address] [facility] [id number] [address] [place] [address] Sep, Bipolar 1 disorder, mixed F3 1.60 [facility] [address] [facility] [id number] [address] [place] [address] Sep, Other chronic pain G89.29 [facility] [address] [facility] [id number] [address] [place] [address] Sep, [facility] [address] [facility] [id number] [address] [place] [address] Sep, Bipolar 1 disorder, mixed F3 1.60 [facility] [address] [facility] [id number] [address] [place] [address] Sep, Allergic rhinitis J30.9 and Sciatica of left side M54.32 [facility] [address] [facility] [id number] [address] [place] [address] Sep, Bipolar 1 disorder, mixed F3 1.60 [facility] [address] [facility] [id number] [address] [place] [address] Sep, Bipolar 1 disorder, mixed F3 1.60 and Generalized anxiety disorder F41.1 [facility] [address] [id number] [address] [place] [address] Aug, [facility] [address] [facility] [id number] [address] [place] [phone] Aug, Bipolar 1 disorder, mixed F3 1.60 [facility] [address] [facility] [id number] [address] [place] [address] Aug, Bipolar 1 disorder, mixed F3 1.60 [facility] [address] [facility] [id number] [address] [place] [address] Aug, [facility] [address] [facility] [id number] [address] [place] [address] Aug, Generalized anxiety disorder F41.1 [facility] [address] [facility] [id number] [address] [place] [address] Aug, Bipolar 1 disorder, mixed F3 1.60 [facility] [address] [facility] [id number] [address] [place] [address] Aug, Plantar wart of right foot B 07.0 [facility] [address] [facility] [id number] [address] [place] [address] Aug, Bipolar 1 disorder, mixed F3 1.60 [facility] [address] [facility] [id number] [address] [place] [address] Jul, Bipolar 1 disorder, mixed F3 1.60 [facility] [address] [facility] [id number] [address] [place] [address] Jul, [facility] [address] [facility] [id number] [address] [place] [address] Jul, Bipolar 1 disorder, mixed F3 1.60 [facility] [address] [facility] [id number] [address] [place] [id number] 09 Jul, 2017 Generalized anxiety disorder F41.1 [facility] [address] [place] [id number] [address] [place] [address] Jul, Bipolar 1 disorder, mixed F3 1.60 [facility] [address] [place] [id number] [address] [place] [address] Jul, Acute left-sided low back pa in with left-sided sciatica M54.42 [facility] [address] [place] [id number] [address] [place] [address] Jul, Coccydynia M53.3 [facility] [address] [place] [id number] [address] [place] [address] Jun, Bipolar 1 disorder, mixed F3 1.60 [facility] [address] [place] [id number] [address] [place] [address] Jun, Acute nasopharyngitis J00 [facility] [address] [place] [id number] [address] [place] [address] Jun, Bipolar 1 disorder, mixed F3 1.60 [facility] [address] [facility] [id number] [address] [place] [address] Jun, Fibromyalgia M79.7 [facility] [address] [facility] [id number] [address] [place] [address] Jun, Bipolar 1 disorder, mixed F3 1.60 [facility] [address] [place] [id number] [address] [place] [address] Jun, Fibromyalgia M79.7 and Bipol ar 1 disorder, mixed F31.60 [facility] [address] [place] [id number] [address] [place] [address] May, Bipolar 1 disorder, mixed F3 1.60 ; Generalized anxiety disorder F41.1 and Other correction (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 Z79.899 [place] [address] [address] May, Bipolar 1 disorder, mixed F3 1.60 [facility] [address] [address] 14 May, 2017 Cough R05 and Body aches R52 [facility] [place] [address] [address] 10 May, 2017 Bladder spasm N32.89 and Acu te cystitis without hematuria N30.00 [place] [address] [address] 07 May, 2017 Bipolar 1 disorder, mixed F3 1.60 [place] [address] [address] 30 Apr, 2017 [place] [address] [address] Apr, Major depressive disorder, r ecurrent episode, moderate F33.1 and Encounter for immunization Z23 [place] [address] [address] Apr, Bipolar 1 disorder, mixed F3 1.60 [place] [address] [address] Apr, Bipolar 1 disorder, mixed F3 1.60 [place] [address] [id number] 16 Apr, 2017 Bipolar 1 disorder, mixed F3 1.60 [place] [address] [address] Apr, Yeast vaginitis B37.3 [place] [address] [address] 09 Apr, 2017 Bipolar 1 disorder, mixed F3 1.60 [facility] [address] [facility] [id number] [address] [place] [id number] 07 Apr, [address] for immunization Z23 [facility] [address] [facility] [id number] [address] [place], [place] [id number] Apr, Bipolar 1 disorder, mixed F3 1.60 [facility] [address] [place] [id number] [address] [place], [place] [id number] Mar, Bipolar 1 disorder, mixed F3 1.60 [facility] [address] [place] [id number] [address] [place], [place] [id number] Mar, Bipolar 1 disorder, mixed F3 1.60 [facility] [address] [place] [id number] [address] [place] [id number] Mar, Imbalance R26.89 and Encount er for immunization Z23 [facility] [address] [place] [id number] [address] [place] [address] Mar, Generalized anxiety disorder F41.1 [facility] [address] [address] [id number] [address] [place] [address] Mar, Bipolar 1 disorder, mixed F3 1.60 [facility] [address] [id number] [address] [place] [address] Mar, Generalized anxiety disorder F41.1 [facility] [address] [place] [id number] [address] [place], [place] [address] Mar, Bipolar 1 disorder, mixed F3 1.60 [facility] [address] [place] [id number] [address] [place] [address] Mar, Bipolar 1 disorder, mixed F3 1.60 [facility] [address] [place] [id number] [address] [place] [address] Feb, Bipolar 1 disorder, mixed F3 1.60 [facility] [address] [place] [id number] [address] [place] [address] Feb, Bipolar 1 disorder, mixed F3 1.60 and Generalized anxiety disorder F41.1 [facility] [address] [facility] [id number] [address] [place] [address] Feb, Gastritis without bleeding, unspecified chronicity, unspecified gastritis type K29.70 ; Hammer toe of right foot M20.41 and Other viral warts B07.8 [place] [address] [facility] [id number] [address] [place] [address] Feb, Bipolar 1 disorder, mixed F3 1.60 [place] [address] [facility] [id number] [address] [place] [address] 13 Feb, 2017 Bipolar 1 disorder, mixed F3 1.60 [place] [address] [facility] [id number] [address] [place] [id number] 05 Feb, 2017 Bipolar 1 disorder, mixed F3 1.60 [place] [address] [facility] [id number] [address] [place] [address] Jan, Encounter for screening mamm ogram for breast cancer Z12.31 ; Other viral warts B07.8 and Allergic rhinitis J30.9 [place] [address] [facility] [id number] [address] [place] [address] Jan, Bipolar 1 disorder, mixed F3 1.60 [place] [address] [facility] [id number] [address] [place] [address] Jan, Bipolar 1 disorder, mixed F3 1.60 [place] [address] [facility] [id number] [address] [place] [address] Jan, [place] [address] [facility] [id number] [address] [place] [address] Jan, Bipolar 1 disorder, mixed F3 1.60 [place] [address] [facility] [id number] [address] [place] [address] Jan, Bipolar 1 disorder, mixed F3 1.60 [place] [address] [facility] [id number] [address] [place] [address] Jan, Allergic rhinitis J30.9 ; He maturia R31.9 and Colon cancer screening Z12.11 [facility] [address] [facility] [id number] [address] [place] [address] Dec, Bipolar 1 disorder, mixed F3 1.60 [facility] [address] [facility] [id number] [address] [place] [address] Dec, Bipolar 1 disorder, mixed F3 1.60 ; Generalized anxiety disorder F41.1 and Other correction (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 Z79.899 [facility] [address] [facility] [id number] [address] [place] [address] Dec, Bipolar 1 disorder, mixed F3 1.60 [facility] [address] [facility] [id number] [address] [place] [address] Dec, Bipolar 1 disorder, mixed F3 1.60 [facility] [address] [place] [id number] [address] [place] [address] Dec, Bipolar 1 disorder, mixed F3 1.60 [facility] [address] [facility] [id number] [address] [place] [address] Dec, Low back pain M54.5 and Recu rrent urinary tract infection N39.0 [facility] [address] [facility] [id number] [address] [place] [address] Nov, Bipolar 1 disorder, mixed F3 1.60 [facility] [address] [facility] [id number] [address] [place] [id number] Nov, Bipolar 1 disorder, mixed F3 1.60 [facility] [address] [facility] [id number] [address] [place] [address] Nov, Bipolar 1 disorder, mixed F3 1.60 [facility] [address] [facility] [id number] [address] [place] [address] Nov, Bipolar 1 disorder, mixed F3 1.60 [facility] [address] [facility] [id number] [address] [place] [address] Nov, [facility] [address] [address] 08 Nov, 2016 Anesthesia of skin R20.0 ; F requent UTI N39.0 ; Tobacco abuse Z72.0 and Colon cancer screening Z12.11 [place] [address] [address] Nov, Bipolar 1 disorder, mixed F3 1.60 [place] [address] [place] [address] October, Bipolar 1 disorder, mixed F3 1.60 [place] [address] [address] October, Bipolar 1 disorder, mixed F3 1.60 [place] [address] [address] October, Bipolar 1 disorder, mixed F3 1.60 [place] [address] [address] October, Bipolar 1 disorder, mixed F3 1.60 [place] [address] [address] October, Bipolar 1 disorder, mixed F3 1.60 [place] [address] [address] October, Cervicalgia M54.2 and Bipola r 1 disorder, mixed F31.60 [place] [address] [address] October, Hypertension I10 ; Hyperlipi demia, unspecified hyperlipidemia type E78.5 and Family history of thyroid disease Z83.49 [place] [address] [address] October, [place] [address] [address] October, Hypertension I10 ; Hyperlipi demia, unspecified hyperlipidemia type E78.5 and Family history of thyroid problem Z83.49 [place] [address] [facility] [id number] [address] [place] [address] October, Bipolar 1 disorder, mixed F3 1.60 [facility] [address] [facility] [id number] [address] [place], [place] [address] Sep, Bipolar 1 disorder, mixed F3 1.60 [facility] [address] [facility] [id number] [address] [place] [address] Sep, Bipolar 1 disorder, mixed F3 1.60 [facility] [address] [facility] [id number] [address] [place] [address] Sep, Bipolar 1 disorder, mixed F3 1.60 [place] [address] [place] [id number] [address] [place] [address] Sep, History of colon polyps Z86. 010 and Hematochezia K92.1 [place] [address] [place] [id number] [address] [place] [address] Sep, Major depressive disorder, r ecurrent episode, moderate F33.1 [facility] [address] [facility] [id number] [address] [place] [address] Sep, Bipolar 1 disorder, mixed F3 1.60 [facility] [address] [facility] [id number] [address] [place] [address] Aug, Hot flashes due to menopause N95.1 [facility] [address] [facility] [id number] [address] [place] [address] Aug, Bipolar 1 disorder, mixed F3 1.60 [facility] [address] [facility] [id number] [address] [place] [address] Aug, [facility] [address] [facility] [id number] [address] [place] [address] Aug, Bipolar 1 disorder, mixed F3 1.60 [facility] [address] [facility] [id number] [address] [place] [address] Aug, Bipolar 1 disorder, mixed F3 1.60 [place] [address] [address] Aug, Hot flashes due to menopause N95.1 ; Cervicalgia M54.2 and Ataxia R27.0 [place] [address] [address] Jul, Bipolar 1 disorder, mixed F3 1.60 [place] [address] [place] [address] Jul, Bipolar 1 disorder, mixed F3 1.60 [place] [address] Jul, Bipolar 1 disorder, mixed F3 1.60 [place] [address] Jul, Bipolar 1 disorder, mixed F3 1.60 [place] [address] [address] Jul, Bipolar 1 disorder, mixed F3 1.60 [place] [address] [address] Jul, Cervicalgia M54.2 ; Tremor R 25.1 ; Hearing abnormally acute, unspecified laterality H93.239 ; Alopecia L65.9 ; Encounter for immunization Z23 and Family history of thyroid disease Z83.49 [place] [address] [address] Jul, Bipolar 1 disorder, mixed F3 1.60 [place] [address] [address] Jun, [place] [address] [place] [address] Jun, Hearing disorder, unspecifie d laterality H93.299 [place] [address] [address] Jun, Bipolar 1 disorder, mixed F3 1.60 [place] [address] [id number] [address] [place] [address] Jun, Bipolar 1 disorder, mixed F3 1.60 [facility] [address] [id number] [address] [place] [address] Jun, Allergic rhinitis J30.9 [facility] [address] [facility] [id number] [address] [place] [address] Jun, Bipolar 1 disorder, mixed F3 1.60 [facility] [address] [id number] [address] [place] [address] Jun, Bipolar 1 disorder, mixed F3 1.60 [facility] [address] [id number] [address] [place] [address], [place] [address] Jun, Allergic rhinitis J30.9 [facility] [address] [facility] [id number] [address] [place] [address] Jun, Allergic rhinitis J30.9 [facility] [address] [facility] [id number] [address] [place] [address] Jun, Bipolar 1 disorder, mixed F3 1.60 [facility] [address] [facility] [id number] [address] [place] [address] May, Bipolar 1 disorder, mixed F3 1.60 [facility] [address] [facility] [id number] [address] [place] [address] May, Bipolar 1 disorder, mixed F3 1.60 [facility] [address] [facility] [id number] [address] [place] [address] May, [facility] [address] [facility] [id number] [address] [place] [address] May, Bipolar 1 disorder, mixed F3 1.60 [facility] [address] [facility] [id number] [address] [place] [address] May, Bipolar 1 disorder, mixed F3 1.60 [facility] [address] [facility] [id number] [address] [place] [address] May, [facility] [address] [facility] [id number] [address] [place] [address] May, [facility] [address] [facility] [id number] [address] [place] [address] May, [facility] [address] [facility] [id number] [address] [place] [address] May, Abdominal pain, unspecified location R10.9 [facility] [address] [place] [id number] [address] [place] [address] May, [facility] [address] [place] [id number] [place] [address] Apr, Hematuria R31.9 ; Ataxia R27 .0 and Hearing loss, unspecified laterality H91.90 [facility] [address] [place] [id number] [place] [address] Apr, Bipolar 1 disorder, mixed F3 1.60 [facility] [address] [place] [id number] [address] [place] [address] Apr, Acute effusion of both middl e ears H65.193 [facility] [address] [address] Apr, Hematuria R31.9 and Pyelonep hritis N12 [facility] [address] [place] [id number] [address] [place] [address] Apr, [facility] [address] [place] [id number] [address] [place] [address] Mar, Bipolar 1 disorder, mixed F3 1.60 [facility] [address] [place] [id number] [address] [place] [address] Mar, [facility] [address] [place] [id number] [place] [address] Mar, Bipolar 1 disorder, mixed F3 1.60 [facility] [address] [place] [id number] [address] [place] [address] Mar, Bipolar 1 disorder, mixed F3 1.60 [place] [address] [place] [id number] [address] [place] [address] Mar, Encounter for immunization Z 23 and Gastritis without bleeding, unspecified chronicity, unspecified gastritis type K29.70 [place] [address] [place] [id number] [address] [place] [address] Mar, Bipolar 1 disorder, mixed F3 1.60 and Grief F43.20 [place] [address] [place] [id number] [place] [address] Mar, Gastritis without bleeding, unspecified chronicity, unspecified gastritis type K29.70 [place] [address] [address] Mar, Bipolar 1 disorder, mixed F3 1.60 [place] [address] [address] Mar, Gastritis without bleeding, unspecified chronicity, unspecified gastritis type K29.70 [place] [address] [place] [id number] [address] [place] [address] Mar, [place] [address] [address] Feb, Bipolar 1 disorder, mixed F3 1.60 [place] [address] [place] [id number] [address] [place] [address] Feb, Bipolar 1 disorder, mixed F3 1.60 and Grief F43.20 [place] [address] [place] [id number] [address] [place] [address] Feb, Gastritis without bleeding, unspecified chronicity, unspecified gastritis type K29.70 [place] [address] [place] [id number] [place] [address] 14 Feb, 2016 Bipolar 1 disorder, mixed F3 1.60 [facility] [address] [place] [id number] [address] [place] [address] Feb, Gastroesophageal reflux dise ase, esophagitis presence not specified K21.9 [facility] [address] [place] [id number] [place] [address] Jan, Bipolar 1 disorder, mixed F3 1.60 [facility] [address] [place] [id number] [address] [place], [place] [id number] Jan, Bipolar 1 disorder, mixed F3 1.60 and Unsteady gait R26.81 [place] [address] [place] [id number] [place] [address] Jan, Bipolar 1 disorder, mixed F3 1.60 [place] [address] Jan, Bipolar 1 disorder, mixed F3 1.60 and Other correction (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 Z79.899 [place] [address] [place] [address] Jan, Bipolar 1 disorder, mixed F3 1.60 [place] [address] [place] [id number] [place] [address] Jan, Bipolar 1 disorder, mixed F3 1.60 [place] [address] [place] [id number] [address] [place] [address] Jan, Bipolar 1 disorder, mixed F3 1.60 ; Grief F43.20 and Other 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 frame tender (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 Z79.899 [place] [id number] [place] [address] Jan, Bipolar 1 disorder, mixed F3 1.60 [place] [address] [place] [id number] [address] [place] [address] Dec, [place] [address] [place] [address] Dec, Bipolar 1 disorder, mixed F3 1.60 ; Vitamin D deficiency, unspecified E55.9 ; H/O allergic rhinitis Z87.09 ; Other chronic pain G89.29 and Dorsalgia, unspecified M54.9 [facility] [address] [id number] [address] [place] [address] Dec, [facility] [address] [facility] [id number] [address] [place] [address] Dec, Bipolar 1 disorder, mixed F3 1.60 [facility] [address] [facility] [id number] [address] [place] [address] Dec, Major depressive disorder, r ecurrent episode, moderate F33.1 [place] [address] [facility] [id number] [address] [place] [address] Dec, Major depressive disorder, r ecurrent episode, moderate F33.1 [place] [address] [facility] [id number] [address] [place] [address] Nov, [place] [address] [facility] [id number] [address] [place] [address] Nov, Bipolar 1 disorder, mixed F3 1.60 [place] [address] [facility] [id number] [address] [place] [address] Nov, Major depressive disorder, r ecurrent episode, moderate F33.1 [place] [address] [facility] [id number] [address] [place] [address] Nov, Cervicalgia M54.2 ; Arthralg ia of hip, unspecified laterality M25.559 ; Allergic rhinitis J30.9 and Hormone replacement therapy Z79.890 [facility] [address] [facility] [id number] [address] [place] [address] Nov, Other seasonal allergic rhin itis J30.2 [facility] [address] [id number] [address] [place] [address] October, Major depressive disorder, r ecurrent episode, moderate F33.1 [facility] [address] [facility] [id number] [address] [place] [address] October, Major depressive disorder, r ecurrent episode, moderate F33.1 and Arthralgia of hip, unspecified laterality M25.559 [place] [address] [facility] [id number] [address] [place] [address] October, Grief F43.20 ; Hypertension I10 ; Hyperlipidemia, unspecified hyperlipidemia type E78.5 ; Other chronic pain G89.29 and Allergic rhinitis, unspecified allergic rhinitis type J30.9 [place] [address] [facility] [id number] [address] [place] [address] October, Major depressive disorder, r ecurrent episode, moderate F33.1 [place] [address] [facility] [id number] [address] [place] [address] Sep, Major depressive disorder, r ecurrent episode, moderate F33.1 [place] [address] [place] [id number] [place] [address] Sep, [place] [address] [place] [id number] [place] [address] Sep, Major depressive disorder, r ecurrent episode, moderate F33.1 [place] [address] [place] [id number] [place] [address] Sep, Grief F43.20 [place] [address] [place] [id number] [place] [address] Aug, Major depressive disorder, r ecurrent episode, moderate F33.1 [place] [address] [place] [id number] [place] [address] Aug, Bipolar 1 disorder, mixed F3 1.60 [place] [address] [place] [id number] [place] [address] Aug, Allergic rhinitis J30.9 ; Ce rvicalgia M54.2 and Low back pain M54.5 [place] [address] [place] [id number] [place] [address] Aug, Major depressive disorder, r ecurrent episode, moderate F33.1 [facility] [address] [place] [id number] [place] [address] Aug, Sinusitis J32.9 and Tobacco 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 [facility] [address] [facility] [id number] [address] [place] [address] Aug, [facility] [address] [place] [id number] [place] [address] Aug, Depressive disorder, not els ewhere classified F32.9 ; Hormone replacement therapy Z79.[address] scan, head R93.0 [facility] [address] [facility] [id number] [address] [place] [address] Aug, Major depressive disorder, r ecurrent episode, moderate F33.1 [facility] [address] [place] [id number] [place] [address] Jul, Major depressive disorder, r ecurrent episode, moderate F33.1 [place] [address] [place] [id number] [place] [address] Jul, Abdominal pain R10.9 and Hyp ertension I10 [facility] [address] [facility] [id number] [address] [place] [id number] Jul, [facility] [address] [facility] [id number] [address] [place] [id number] Jul, Major depressive disorder, r ecurrent episode, moderate F33.1 [facility] [address] [place] [id number] [address] [place] [id number] Jul, [facility] [address] [facility] [id number] [address] [place] [id number] Jul, [facility] [address] [facility] [id number] [address] [place] [id number] Jun, [facility] [address] [place] [id number] [address] [place] [id number] Jun, Depressive disorder, not els ewhere classified F32.9 [facility] [address] [place] [id number] [address] [place] [id number] Jun, [facility] [address] [id number] [address] [place] [id number] Jun, [facility] [address] [id number] [address] [place] [phone] Jun, Arthralgia of hip, unspecifi ed laterality M25.559 ; Bruising, spontaneous R23.3 and Night sweats R61 [facility] [address] [id number] [address] [place] [phone] Jun, [facility] [address] [id number] [address] [place] [phone] Jun, [facility] [address] [id number] [address] [place] [id number] May, [facility] [address] [place] [id number] [address] [place] [id number] May, Myalgia M79.1 and Screening, lipid Z13.220 [facility] [address] [facility] [id number] [address] [place] [id number] Apr, Status post cervical spinal fusion Z98.1 ; Fibromyalgia M79.7 and Unsteady gait R26.81 [facility] [address] [id number] [address] [place] [address] Nov, [facility] [address] [id number] [address] [place] [address] Nov, [facility] [address] [id number] [address] [place] [address] October, [facility] [address] [id number] [address] [place] [address] October, [facility] [address] [facility] [id number] [address] [place] [id number] October, [facility] [address] [facility] [id number] [address] [place] [address] October, [facility] [address] [id number] [address] [place] [address] October, [facility] [address] [id number] [address] [place] [address] October, Dysuria 788.1 ; Nausea 787.0 2 and Urinary tract infection 599.0 [facility] [address] [id number] [address] [place] [address], [place] [address] Sep, [facility] [address] [id number] [address] [place] [address] Sep, [facility] [address] [id number] [address] [place] [address], [place] [address] Aug, [facility] [address] [id number] [address] [place] [address] Aug, [facility] [address] [id number] [address] [place] [address] Aug, [facility] [address] [id number] [address] [place] [address] Aug, [facility] [address] [id number] [address] [place] [id number] Aug, [facility] [address] [id number] [address] [place] [address] Aug, [facility] [address] [id number] [address] [place] [address] Aug, [facility] [address] [id number] [address] [place] [address] Aug, [facility] [address] [id number] [address] [place] [address] Aug, [facility] [address] [id number] [address] [place] [address] Aug, [facility] [address] [id number] [address] [place] [address] Aug, [facility] [address] [id number] [address] [place] [address], [place] [address] 13 Aug, 2014 [facility] [address] [id number] [address] [place] [address], [place] [address] 13 Aug, 2014 [facility] [address] [id number] [address] [place] [address], [place] [address] 11 Aug, 2014 [facility] [address] [id number] [address] [place] [address], [place] [address] 11 Aug, 2014 [facility] [address] [id number] [address] [place] [address], [place] [address] 06 Aug, 2014 [facility] [address] [id number] [address] [place] [address], [place] [address] 06 Aug, 2014 [facility] [address] [id number] [address] [place] [address], [place] [address] 05 Aug, 2014 [facility] [address] [id number] [address] [place] [address], [place] [address] 05 Aug, 2014 [facility] [address] [id number] [address] [place] [address], [place] [address] 04 Aug, 2014 [facility] [address] [id number] [address] [place] [address], [place] [address] Aug, [facility] [address] [id number] [address] [place] [address], [place] [address] Aug, [facility] [address] [id number] [address] [place] [address], [place] [address] Jul, 2014 [facility] [address] [id number] [address] [place] [address], [place] [address] Jul, [facility] [address] [id number] [address] [place] [address], [place] [address] Jul, [facility] [address] [id number] [address] [place] [address], [place] [address] Jul, 2014 [facility] [address] [id number] [address] [place] [address], [place] [address] Jul, 2014 [facility] [address] [id number] [address] [place] [address], [place] [address] Jul, 2014 [facility] [address] [id number] [address] [place] [address], [place] [address] Jul, 2014 [facility] [address] [id number] [address] [place] [address], [place] [address] Jul, 2014 [facility] [address] [id number] [address] [place] [address], [place] [address] Jul, 2014 [facility] [address] [id number] [address] [place] [address], [place] [address] Jul, 2014 [facility] [address] [id number] [address] [place] [address], [place] [address] Jul, 2014 [facility] [address] [id number] [address] [place] [address], [place] [address] Jul, 2014 [facility] [address] [id number] [address] [place] [address], [place] [address] Jul, [facility] [address] [id number] [address] [place] [address], [place] [address] Jul, [facility] [address] [id number] [address] [place] [address], [place] [address] Jun, [facility] [address] [id number] [address] [place] [address], [place] [address] Jun, [facility] [address] [id number] [address] [place] [address] Jun, [facility] [address] [id number] [address] [place] [address] Jun, [facility] [address] [id number] [address] [place] [address] Jun, [facility] [address] [id number] [address] [place] [address] Jun, [facility] [address] [id number] [address] [place] [address], [place] [address] May, [facility] [address] [id number] [address] [place] [address], [place] [address] May, [facility] [address] [id number] [address] [place] [address], [place] [address] May, [facility] [address] [id number] [address] [place] [address], [place] [address] May, [facility] [address] [id number] [address] [place] [address], [place] [address] May, [facility] [address] [id number] [address] [place] [address], [place] [address] May, [facility] [address] [id number] [address] [place] [address], [place] [address] Apr, [facility] [address] [id number] [address] [place] [address], [place] [address] Apr, [facility] [address] [id number] [address] [place] [address], [place] [address] Apr, [facility] [address] [id number] [address] [place] [address], [place] [address] Apr, [facility] [address] [id number] [address] [place] [address], [place] [address] Apr, [facility] [address] [id number] [address] [place] [address], [place] [address] Apr, [facility] [address] [id number] [address] [place] [address], [place] [address] Mar, [facility] [address] [id number] [address] [place] [address], [place] [address] Mar, [facility] [address] [id number] [address] [place] [address], [place] [address] Mar, [facility] [address] [id number] [address] [address] Mar, [facility] [address] [id number] [address] [place] [address], [place] [address] Mar, 2013 [facility] [address] [id number] [address] [place] [address], [place] [address] Mar, [facility] [address] [id number] [address] [place] [address], [place] [address] Mar, 2013 [facility] [address] [id number] [address] [place] [address], [place] [address] Mar, 2013 [facility] [address] [id number] [address] [place] [address], [place] [address] Mar, [facility] [address] [id number] [address] [place] [address], [place] [address] Mar, 2013 [facility] [address] [id number] [address] [place] [address], [place] [address] Mar, [facility] [address] [id number] [address] [place] [address], [place] [address] Mar, [facility] [address] [id number] [address] [place] [address], [place] [address] 30 Feb, 2013 [facility] [address] [id number] [address] [place] [address], [place] [address] 29 Sep, 2013 [facility] [address] [id number] [address] [place] [address], [place] [address] 29 Sep, 2013 [facility] [address] [id number] [address] [place] [address] 23 Sep, 2013 [facility] [address] [id number] [address] [place] [address], [place] [address] 23 Sep, 2013 [facility] [address] [id number] [address] [place] [address], [place] [address] 08 Feb, 2013 [facility] [address] [id number] [address] [place] [address], [place] [address] 08 Feb, 2013 [facility] [address] [id number] [facility] [place] [address] Jan, [facility] [address] [id number] [facility] [place] [address] Jan, [facility] [address] [id number] [facility] [place] [address] Jan, [facility] [address] [id number] [address] [place] [address], [place] [address] Dec, [facility] [address] [id number] [address] [place] [address], [place] [address] Dec, [facility] [address] [id number] [address] [place] [address], [place] [address] Dec, [facility] [address] [id number] [address] [place] [address], [place] [address] Dec, [facility] [address] [id number] [address] [place] [address], [place] [address] Sep, [facility] [address] [id number] [address] [place] [address], [place] [address] Sep, [facility] [address] [id number] [address] [place] [address], [place] [address] Sep, [facility] [address] [id number] [address] [place] [address], [place] [address] Sep, [facility] [address] [id number] [address] [place] [address], [place] [address] Sep, [facility] [address] [id number] [address] [place] [address], [place] [address] Sep, [facility] [address] [id number] [address] [place] [address], [place] [address] Sep, [facility] [address] [id number] [address] [place] [address], [place] [address] Sep, [facility] [address] [id number] [address] [place] [address], [place] [address] Aug, [facility] [address] [id number] [address] [place] [address], [place] [address] Aug, [facility] [address] [id number] [address] [place] [address], [place] [address] May, [facility] [address] [id number] [address] [place] [address], [place] [address] May, [facility] [address] [id number] [address] [place] [address], [place] [address] Apr, [facility] [address] [id number] [address] [place] [address], [place] [address] Apr, [facility] [address] [id number] [address] [place] [address], [place] [address] Apr, [facility] [address] [id number] [address] [place] [address], [place] [address] Apr, [facility] [address] [id number] [address] [place] [address], [place] [address] Apr, [facility] [address] [id number] [address] [place] [address], [place] [address] Apr, [facility] [address] [id number] [address] [place] [address], [place] [address] May, [facility] [address] [id number] [address] [place] [address], [place] [address] 18 May, 2012 [facility] [address] [id number] [address] [place] [address], [place] [address] 15 May, 2012 [facility] [address] [id number] [address] [place] [address], [place] [address] 15 May, 2012 [facility] [address] [id number] [address] [place] [address], [place] [address] 13 May, 2012 [facility] [address] [id number] [address] [place] [address], [place] [address] 13 May, 2012 [facility] [address] [id number] [address] [place] [address] 13 Apr, 2012 [facility] [address] [id number] [address] [place] [address], [place] [address] 13 Apr, 2012 [facility] [address] [id number] [address] [place] [address] 08 Apr, 2012 [facility] [address] [id number] [address] [place] [address], [place] [address] Apr, [facility] [address] [id number] [address] [place] [address] 08 Apr, 2012 [facility] [address] [id number] [address] [place] [address], [place] [address] Apr, [facility] [address] [id number] [address] [place] [address], [place] [address] Apr, [facility] [address] [id number] [address] [place] [address], [place] [address] Apr, [facility] [address] [id number] [address] [place] [address], [place] [address] Apr, [facility] [address] [id number] [address] [place] [address] Apr, [facility] [address] [id number] [address] [place] [address] Mar, [facility] [address] [id number] [address] [place] [address] Mar, [facility] [address] [id number] [address] [place] [address] Mar, [facility] [address] [id number] [address] [place] [address] Mar, [facility] [address] [id number] [address] [place] [address], [place] [address] Mar, [facility] [address] [id number] [address] [place] [address] Mar, [facility] [address] [id number] [facility] [place] [address] Mar, [facility] [address] [id number] [address] [place] [address], [place] [address] Mar, [facility] [address] [id number] [address] [place] [address], [place] [address] Mar, [facility] [address] [id number] [address] [place] [address], [place] [address] 25 Feb, 2012 [facility] [address] [id number] [address] [place] [address], [place] [address] 16 Feb, 2012 [facility] [address] [id number] [address] [place] [address], [place] [address] Feb, [facility] [address] [id number] [address] [place] [address], [place] [address] Jan, [facility] [address] [id number] [address] [place] [address], [place] [address] Jan, [facility] [address] [id number] [address] [place] [address], [place] [address] Jan, [facility] [address] [id number] [address] [place] [address], [place] [address] Jan, [facility] [address] [id number] [address] [place] [address], [place] [address] Jan, [facility] [address] [id number] [address] [place] [address], [place] [address] Jan, [facility] [address] [id number] [address] [place] [address], [place] [address] 16 Jan, 2012 [facility] [address] [id number] [address] [place] [address], [place] [address] Jan, [facility] [address] [id number] [address] [place] [address], [place] [address] Jan, [facility] [address] [id number] [address] [place] [address], [place] [address] Jan, [facility] [address] [id number] [address] [place] [address], [place] [address] Dec, [facility] [address] [id number] [address] [place] [address], [place] [address] Dec, [facility] [address] [id number] [address] [place] [address], [place] [address] Dec, [facility] [address] [id number] [address] [place] [address], [place] [address] Dec, [facility] [address] [id number] [address] [place] [address], [place] [address] Nov, [facility] [address] [id number] [address] [place] [address], [place] [address] Nov, [facility] [address] [id number] [address] [place] [address], [place] [address] Nov, [facility] [address] [id number] [address] [place] [address], [place] [address] October, [facility] [address] [id number] [address] [place] [address], [place] [address] October, [facility] [address] [id number] [address] [place] [address], [place] [address] October, [facility] [address] [id number] [address] [place] [address], [place] [address] October, [facility] [address] [id number] [address] [place] [address], [place] [id number] October, [facility] [address] [id number] [address] [place] [address], [place] [id number] October, [facility] [address] [id number] [address] [place] [address], [place] [id number] Aug, [facility] [address] [id number] [address] [place] [address], [place] [id number] Mar, [facility] [address] [id number] [address] [place] [id number] 16 Nov, 2010 [facility] [address] [facility] [id number] [address] [place] [phone] May, [facility] [address] [facility] [id number] [address] [place] [id number] May, [facility] [address] [facility] [id number] [address] [place] [id number] Apr, [facility] [address] [facility] [id number] [address] [place] [id number] Mar, [facility] [address] [facility] [id number] [address] [place] [id number] Mar, IMMUNIZATIONS No Known Immunizations SOCIAL HISTORY Never Assessed REASON FOR VISIT Depression PLAN OF CARE Activity Details Follow Up 1 Week Reason: VITAL SIGNS MEDICATIONS Unknown Medications RESULTS No [...]
--- OUTSIDE RECORDS SUMMARY | 2019-06-19 05:06 | XMS REPORT ---
Author Author Sydnie HANCOCK [facility] Address [address] [place] [address] Care Team Providers Care Family Practice Physician Assistant Name Role Phone NAHOMY HANCOCK Unavailable PROBLEMS Type Condition ICD9-CM Code NIQ83-HP Code Onset Dates Condition S tatus SNOMED Code Problem Abnormal CT scan, head R93.0 Active 090600086 Problem Bruising, spontaneous R23.3 Active 505184121 Problem Sensorineural hearing loss (SNHL) of both ears H90 .3 Active 847467437 Problem Arthralgia of hip, unspecified laterality M25.559 Active 19347319 Problem Night sweats R61 Active 6212400 0 Problem Grief F43.20 Active 11090809 Problem Hypertension I10 Active 1215095 3 Problem Major depressive disorder, recurrent episode, moderate F33.1 Active 238967366 Problem Imbalance R26.89 Active 798916143 Problem Age-related osteoporosis without current pathological fracture M81.0 Active 85781562 Problem Hormone replacement therapy Z79.890 Ac tive 050744537 Problem Ataxia R27.0 Active 94779568 Problem Bipolar 1 disorder, mixed F31.60 Acti ve 68299053 Problem Allergic rhinitis J30.9 Active 61 952479 Problem Hearing loss, unspecified laterality H91.90 Active 61694085 Problem Generalized anxiety disorder F41.1 A ctive 29824877 Problem History of colon polyps Z86.010 Active 417674934 Problem Hammer toe of right foot M20.41 Activ e 606414979 Problem Hematuria, unspecified type R31.9 Ac tive 10345910 Problem Fibromyalgia M79.7 Active 7204948 7 Problem Bladder spasm N32.89 Active 598116 006 Problem Acute left-sided low back pain with left-sided sciatica M54.42 Active 639625327 Problem Post menopausal syndrome N95.1 Activ e 732300360 Problem Hyperlipidemia, unspecified hyperlipidemia type E7 8.5 Active 04249238 Problem Sciatica of right side M54.31 Active 81011037 Problem Other chronic pain G89.29 Active 8 9805132 Problem Gastritis without bleeding, unspecified chronicity, unspecified gastritis type K29.70 Active 460586183 Problem Sciatica of left side M54.32 Active 61592829 Problem Plantar wart of right foot B07.0 Act mitchell [id number] Problem Slow transit constipation K59.01 Acti ve 11094561 Problem Tobacco use disorder F17.200 Active 803381537 ALLERGIES No Information ENCOUNTERS Encounter Location Date Diagnosis [facility] [address] [facility] [id number] [address] [place] [phone] Feb, [place] [address] [facility] [id number] [place] [phone] Feb, [place] [address] [place] [id number] [address] [place] [phone] Feb, [place] [address] [place] [id number] [address] [place] [phone] Jan, [place] [address] [facility] [id number] [address] [place] [phone] Jan, Sciatica of right side M54.3 1 ; Low back pain M54.5 and Major depressive disorder, recurrent episode, moderate F33.1 [place] [address] [place] [id number] [address] [place] [id number] Jan, Bipolar 1 disorder, mixed F3 1.60 [place] [address] [address] [place] [id number] [address] [place] [id number] Dec, Normal pelvic exam Z01.419 [place] [address] [address] [place] [id number] [address] [place] [id number] Dec, Bipolar 1 disorder, mixed F3 1.60 [place] [address] [place] [id number] [address] [place] [phone] Nov, Bipolar 1 disorder, mixed F3 1.60 [place] [address] [place] [id number] [address] [place] [phone] Nov, Bipolar 1 disorder, mixed F3 1.60 ; Generalized anxiety disorder F41.1 ; Tobacco use disorder F17.200 and 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 [facility] [address] [facility] [id number] [address] [place] [id number] Nov, [facility] [address] [facility] [id number] [address] [place] [id number] Nov, Bipolar 1 disorder, mixed F3 1.60 [facility] [address] [facility] [id number] [address] [place] [id number] October, Bipolar 1 disorder, mixed F3 1.60 [facility] [address] [facility] [id number] [address] [place] [id number] October, Bipolar 1 disorder, mixed F3 1.60 [place] [address] [facility] [id number] [address] [place] [phone] October, [facility] [address] [facility] [id number] [address] [place] [id number] October, Bipolar 1 disorder, mixed F3 1.60 ; Generalized anxiety disorder F41.1 and Tobacco use disorder F17.200 [place] [address] [place] [id number] [address] [place] [id number] Sep, [facility] [address] [place] [id number] [address] [place] [phone] Sep, [facility].00 ; Major depressive disorder, recurrent episode, moderate F33.1 ; Allergic rhinitis J30.9 ; Bipolar 1 disorder, mixed F31.60 ; Fibromyalgia M79.7 ; Hyperlipidemia, unspecified hyperlipidemia type E78.5 ; Hormone replacement therapy Z79.890 ; Encounter for screening for lung cancer Z12.2 and Tobacco use disorder F17.200 [facility] [address] [facility] [id number] [address] [place] [id number] Sep, Bipolar 1 disorder, mixed F3 1.60 [facility] [address] [facility] [id number] [address] [place] [phone] Sep, Other chronic pain G89.29 ; Hyperlipidemia, unspecified hyperlipidemia type E78.5 ; Breast cancer screening Z12.31 and Post menopausal syndrome N95.1 [place] [address] [place] [id number] [address] [place] [id number] 16 Sep, 2018 Bipolar 1 disorder, mixed F3 1.60 [place] [address] [phone] Sep, Bipolar 1 disorder, mixed F3 1.60 ; Generalized anxiety disorder F41.1 and Tobacco use disorder F17.200 [place] [address] [address] Sep, Gastritis without bleeding, unspecified chronicity, unspecified gastritis type K29.70 [place] [address] [address] Sep, Exercise counseling Z71.82 [place] [address] [address] Aug, Exercise counseling Z71.82 [place] [address] [address] Aug, Bipolar 1 disorder, mixed F3 1.60 [place] [address] [address] [place] [id number] [address] [place] [phone] Aug, Exercise counseling Z71.82 [place] [address] [place] [id number] [address] [place] [phone] Aug, Bipolar 1 disorder, mixed F3 1.60 [place] [address] [place] [id number] [address] [place] [id number] 18 Aug, 2018 Gastritis without bleeding, unspecified chronicity, unspecified gastritis type K29.70 ; Tobacco abuse Z72.0 ; Generalized anxiety disorder F41.1 and Weight gain R63.5 [place] [address] [place] [id number] [address] [place] [id number] 14 Aug, 2018 Bipolar 1 disorder, mixed F3 1.60 ; Generalized anxiety disorder F41.1 and Tobacco use disorder F17.200 [facility] [address] [id number] [address] [place] [phone] Jul, Bipolar 1 disorder, mixed F3 1.60 [facility] [address] [id number] [address] [place] [phone] Jul, [facility] [address] [id number] [address] [place] [id number] Jul, Bipolar 1 disorder, mixed F3 1.60 [facility] [address] [id number] [address] [place] [id number] Jul, Allergic rhinitis J30.9 ; Ma darion depressive disorder, recurrent episode, moderate F33.1 and Tobacco 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 [facility] [address] [facility] [id number] [address] [place] [id number] Jun, [facility] [address] [id number] [address] [place] [id number] Jun, [facility] [address] [id number] [address] [place] [id number] Jun, Bipolar 1 disorder, mixed F3 1.60 [facility] [address] [facility] [id number] [address] [place] [id number] Jun, Bipolar 1 disorder, mixed F3 1.60 [facility] [address] [id number] [address] [place] [id number] Jun, Bipolar 1 disorder, mixed F3 1.60 [facility] [address] [id number] [address] [place] [phone] Jun, Generalized anxiety disorder F41.1 ; Tobacco abuse Z72.0 and Major depressive disorder, recurrent episode, moderate F33.1 [facility] [address] [id number] [address] [place] [id number] May, Bipolar 1 disorder, mixed F3 1.60 [facility] [address] [facility] [id number] [address] [place] [id number] May, Bipolar 1 disorder, mixed F3 1.60 and Generalized anxiety disorder F41.1 [facility] [address] [facility] [id number] [address] [place] [id number] May, Bipolar 1 disorder, mixed F3 1.60 [facility] [address] [place] [id number] [address] [place] [phone] May, Allergic rhinitis J30.9 [facility] [address] [place] [id number] [address] [place] [id number] May, Bipolar 1 disorder, mixed F3 1.60 [facility] [address] [place] [id number] [address] [place] [phone] May, [facility] [address] [facility] [id number] [address] [place] [id number] Apr, Allergic rhinitis J30.9 ; Dy sfunction of both eustachian tubes H69.83 ; History of bladder surgery Z98.890 and Cervicalgia M54.2 [facility] [address] [place] [id number] [address] [place] [id number] Mar, Bipolar 1 disorder, mixed F3 1.60 [facility] [address] [place] [id number] [address] [place] [id number] Mar, [facility] [address] [facility] [id number] [address] [place] [phone] Mar, Slow transit constipation K5 9.01 ; Encounter for immunization Z23 and Generalized anxiety disorder F41.1 [facility] [address] [facility] [id number] [address] [place] [id number] Feb, Bipolar 1 disorder, mixed F3 1.60 [facility] [address] [facility] [id number] [address] [place] [id number] Feb, Allergic rhinitis J30.9 [facility] [address] [facility] [id number] [address] [place] [id number] Feb, Bipolar 1 disorder, mixed F3 1.60 [facility] [address] [facility] [id number] [address] [place] [id number] 20 Feb, 2018 Bipolar 1 disorder, mixed F3 1.60 and Generalized anxiety disorder F41.1 [facility] [address] [facility] [id number] [address] [place] [id number] 13 Feb, 2018 Bipolar 1 disorder, mixed F3 1.60 [facility] [address] [facility] [id number] [address] [place] [id number] 11 Feb, 2018 Allergic rhinitis J30.9 [facility] [address] [facility] [id number] [address] [place] [id number] 05 Feb, 2018 [facility] [address] [facility] [id number] [address] [place] [id number] Jan, Bipolar 1 disorder, mixed F3 1.60 [facility] [address] [facility] [id number] [address] [place] [phone] Jan, Low back pain M54.5 ; Hyperl ipidemia, unspecified hyperlipidemia type E78.5 and Bipolar 1 disorder, mixed F31.60 [facility] [address] [facility] [id number] [address] [place] [id number] Jan, Bipolar 1 disorder, mixed F3 1.60 [facility] [address] [facility] [id number] [address] [place] [id number] Jan, Bipolar 1 disorder, mixed F3 1.60 [facility] [address] [facility] [id number] [address] [place] [id number] Jan, Bipolar 1 disorder, mixed F3 1.60 [facility] [address] [facility] [id number] [address] [place] [id number] Jan, Bipolar 1 disorder, mixed F3 1.60 [facility] [address] [facility] [id number] [address] [place] [id number] Dec, Bipolar 1 disorder, mixed F3 1.60 ; Generalized anxiety disorder F41.1 and 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 [facility] [address] [facility] [id number] [address] [place] [id number] Dec, 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 (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) dr bin feliz Z79.899 [facility] [address] [facility] [id number] [address] [place] [id number] Dec, Bipolar 1 disorder, mixed F3 1.60 [facility] [address] [facility] [id number] [address] [place] [id number] Dec, Bipolar 1 disorder, mixed F3 1.60 [facility] [address] [facility] [id number] [address] [place] [id number] Nov, Bipolar 1 disorder, mixed F3 1.60 [facility] [address] [facility] [id number] [address] [place] [id number] Nov, Bipolar 1 disorder, mixed F3 1.60 [place] [address] [facility] [id number] [address] [place] [id number] Nov, Bipolar 1 disorder, mixed F3 1.60 [facility] [address] [facility] [id number] [address] [place] [id number] Nov, Allergic rhinitis J30.9 [facility] [address] [facility] [id number] [address] [place] [id number] Nov, Allergic rhinitis J30.9 [facility] [address] [facility] [id number] [address] [place] [id number] Nov, [facility] [address] [facility] [id number] [address] [place] [phone] Nov, Bipolar 1 disorder, mixed F3 1.60 [facility] [address] [facility] [id number] [address] [place] [id number] Nov, Fibromyalgia M79.7 and Aller gic rhinitis J30.9 [facility] [address] [facility] [id number] [address] [place] [id number] October, Bipolar 1 disorder, mixed F3 1.60 [facility] [address] [facility] [id number] [address] [place] [id number] October, Acute nasopharyngitis J00 [facility] [address] [facility] [id number] [address] [place] [id number] October, Bitten or stung by nonvenomo us insect and other nonvenomous arthropods, initial encounter W57.XXXA and Insect bite (nonvenomous) of abdominal wall, initial encounter S30.861A [facility] [address] [facility] [id number] [address] [place] [id number] October, Insect bite (nonvenomous) of abdominal wall, initial encounter S30.861A ; Bitten or stung by nonvenomous insect and other nonvenomous arthropods, initial encounter W57.XXXA ; Allergic rhinitis J30.9 and Low back pain M54.5 [facility] [address] [facility] [id number] [address] [place] [id number] October, Bipolar 1 disorder, mixed F3 1.60 [facility] [address] [facility] [id number] [address] [place] [id number] October, [facility] [address] [facility] [id number] [address] [place] [id number] October, [facility] [address] [place] [id number] [address] [place] [id number] October, Bipolar 1 disorder, mixed F3 1.60 [facility] [address] [facility] [id number] [address] [place] [id number] Sep, Bipolar 1 disorder, mixed F3 1.60 [facility] [address] [facility] [id number] [address] [place] [phone] Sep, Other chronic pain G89.29 [facility] [address] [facility] [id number] [address] [place] [phone] Sep, [facility] [address] [facility] [id number] [address] [place] [id number] Sep, Bipolar 1 disorder, mixed F3 1.60 [facility] [address] [facility] [id number] [address] [place] [id number] Sep, Allergic rhinitis J30.9 and Sciatica of left side M54.32 [facility] [address] [facility] [id number] [address] [place] [id number] Sep, Bipolar 1 disorder, mixed F3 1.60 [facility] [address] [facility] [id number] [address] [place] [id number] Sep, Bipolar 1 disorder, mixed F3 1.60 and Generalized anxiety disorder F41.1 [facility] [address] [id number] [address] [place] [phone] Aug, [facility] [address] [facility] [id number] [address] [place] [id number] Aug, Bipolar 1 disorder, mixed F3 1.60 [facility] [address] [facility] [id number] [address] [place] [id number] Aug, Bipolar 1 disorder, mixed F3 1.60 [facility] [address] [facility] [id number] [address] [place] [phone] Aug, [facility] [address] [facility] [id number] [address] [place] [phone] Aug, Generalized anxiety disorder F41.1 [facility] [address] [facility] [id number] [address] [place] [id number] Aug, Bipolar 1 disorder, mixed F3 1.60 [facility] [address] [facility] [id number] [address] [place] [id number] Aug, Plantar wart of right foot B 07.0 [facility] [address] [facility] [id number] [address] [place] [id number] Aug, Bipolar 1 disorder, mixed F3 1.60 [facility] [address] [facility] [id number] [address] [place] [id number] Jul, Bipolar 1 disorder, mixed F3 1.60 [facility] [address] [facility] [id number] [address] [place] [phone] Jul, [facility] [address] [facility] [id number] [address] [place] [id number] Jul, Bipolar 1 disorder, mixed F3 1.60 [facility] [address] [facility] [id number] [address] [place] [phone] 09 Jul, 2017 Generalized anxiety disorder F41.1 [facility] [address] [place] [id number] [address] [place] [id number] Jul, Bipolar 1 disorder, mixed F3 1.60 [facility] [address] [place] [id number] [address] [place] [id number] Jul, Acute left-sided low back pa in with left-sided sciatica M54.42 [facility] [address] [place] [id number] [address] [place] [id number] Jul, Coccydynia M53.3 [facility] [address] [place] [id number] [address] [place] [id number] Jun, Bipolar 1 disorder, mixed F3 1.60 [facility] [address] [place] [id number] [address] [place] [id number] Jun, Acute nasopharyngitis J00 [facility] [address] [place] [id number] [address] [place] [id number] Jun, Bipolar 1 disorder, mixed F3 1.60 [facility] [address] [facility] [id number] [address] [place] [phone] Jun, Fibromyalgia M79.7 [facility] [address] [facility] [id number] [address] [place] [phone] Jun, Bipolar 1 disorder, mixed F3 1.60 [facility] [address] [place] [id number] [address] [place] [id number] Jun, Fibromyalgia M79.7 and Bipol ar 1 disorder, mixed F31.60 [facility] [address] [place] [id number] [address] [place] [id number] May, Bipolar 1 disorder, mixed F3 1.60 ; Generalized anxiety disorder F41.1 and 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 [place] [address] [id number] May, Bipolar 1 disorder, mixed F3 1.60 [facility] [address] [address] 14 May, 2017 Cough R05 and Body aches R52 [facility] [place] [address] [address] 10 May, 2017 Bladder spasm N32.89 [address]u te cystitis without hematuria N30.00 [place] [address] [address] 07 May, 2017 Bipolar 1 disorder, mixed F3 1.60 [place] [address] [id number] 30 Apr, 2017 [place] [address] [address] Apr, Major depressive disorder, r ecurrent episode, moderate F33.1 and Encounter for immunization Z23 [place] [address] [id number] Apr, Bipolar 1 disorder, mixed F3 1.60 [place] [address] [address] Apr, Bipolar 1 disorder, mixed F3 1.60 [place] [address] [id number] 16 Apr, 2017 Bipolar 1 disorder, mixed F3 1.60 [place] [address] [address] Apr, Yeast vaginitis B37.3 [place] [address] [address] 09 Apr, 2017 Bipolar 1 disorder, mixed F3 1.60 [facility] [address] [facility] [id number] [address] [place] [id number] 07 Apr, [address]itis [address]03[address] for immunization Z23 [facility] [address] [facility] [id number] [address] [place], [place] [id number] Apr, Bipolar 1 disorder, mixed F3 1.60 [facility] [address] [place] [id number] [address] [place], [place] [id number] Mar, Bipolar 1 disorder, mixed F3 1.60 [facility] [address] [place] [id number] [address] [place], [place] [id number] Mar, Bipolar 1 disorder, mixed F3 1.60 [facility] [address] [place] [id number] [address] [place], [place] [id number] Mar, Imbalance R26.89 and Encount er for immunization Z23 [facility] [address] [place] [id number] [address] [place] [id number] Mar, Generalized anxiety disorder F41.1 [facility] [address] [id number] [address] [place] [phone] Mar, Bipolar 1 disorder, mixed F3 1.60 [facility] [address] [id number] [address] [place] [phone] Mar, Generalized anxiety disorder F41.1 [facility] [address] [id number] [address] [place], [place] [address] Mar, Bipolar 1 disorder, mixed F3 1.60 [facility] [address] [id number] [address] [place] [phone] Mar, Bipolar 1 disorder, mixed F3 1.60 [facility] [address] [id number] [address] [place], [place] [address] Feb, Bipolar 1 disorder, mixed F3 1.60 [facility] [address] [id number] [address] [place] [phone] Feb, Bipolar 1 disorder, mixed F3 1.60 and Generalized anxiety disorder F41.1 [facility] [address] [facility] [id number] [address] [place] [id number] Feb, Gastritis without bleeding, unspecified chronicity, unspecified gastritis type K29.70 ; Hammer toe of right foot M20.41 and Other viral warts B07.8 [place] [address] [address] [facility] [id number] [address] [place] [id number] Feb, Bipolar 1 disorder, mixed F3 1.60 [place] [address] [address] [facility] [id number] [address] [place] [id number] 13 Feb, 2017 Bipolar 1 disorder, mixed F3 1.60 [place] [address] [address] [facility] [id number] [address] [place] [id number] 05 Feb, 2017 Bipolar 1 disorder, mixed F3 1.60 [place] [address] [address] [facility] [id number] [address] [place] [id number] Jan, Encounter for screening mamm ogram for breast cancer Z12.31 ; Other viral warts B07.8 and Allergic rhinitis J30.9 [place] [address] [address] [facility] [id number] [address] [place] [id number] Jan, Bipolar 1 disorder, mixed F3 1.60 [place] [address] [address] [facility] [id number] [address] [place] [id number] Jan, Bipolar 1 disorder, mixed F3 1.60 [place] [address] [address] [facility] [id number] [address] [place] [id number] Jan, [place] [address] [address] [facility] [id number] [address] [place] [id number] Jan, Bipolar 1 disorder, mixed F3 1.60 [place] [address] [address] [facility] [id number] [address] [place] [id number] Jan, Bipolar 1 disorder, mixed F3 1.60 [place] [address] [address] [facility] [id number] [address] [place] [phone] Jan, Allergic rhinitis J30.9 ; He maturia R31.9 and Colon cancer screening Z12.11 [facility] [address] [facility] [id number] [address] [place] [id number] Dec, Bipolar 1 disorder, mixed F3 1.60 [facility] [address] [facility] [id number] [address] [place] [id number] Dec, Bipolar 1 disorder, mixed F3 1.60 ; Generalized anxiety disorder F41.1 and 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 [facility] [address] [facility] [id number] [address] [place] [id number] Dec, Bipolar 1 disorder, mixed F3 1.60 [facility] [address] [facility] [id number] [address] [place] [id number] Dec, Bipolar 1 disorder, mixed F3 1.60 [facility] [address] [id number] [address] [place] [id number] Dec, Bipolar 1 disorder, mixed F3 1.60 [facility] [address] [facility] [id number] [address] [place] [id number] Dec, Low back pain M54.5 and Recu rrent urinary tract infection N39.0 [facility] [address] [facility] [id number] [address] [place] [id number] Nov, Bipolar 1 disorder, mixed F3 1.60 [facility] [address] [facility] [id number] [address] [place] [id number] Nov, Bipolar 1 disorder, mixed F3 1.60 [facility] [address] [facility] [id number] [address] [place] [id number] Nov, Bipolar 1 disorder, mixed F3 1.60 [facility] [address] [facility] [id number] [address] [place] [id number] Nov, Bipolar 1 disorder, mixed F3 1.60 [facility] [address] [facility] [id number] [address] [place] [phone] Nov, [facility] [address] [address] 08 Nov, 2016 Anesthesia of skin R20.0 ; F requent UTI N39.0 ; Tobacco abuse Z72.0 and Colon cancer screening Z12.11 [place] [address] [address] Nov, Bipolar 1 disorder, mixed F3 1.60 [place] [address] [place] [id number] October, Bipolar 1 disorder, mixed F3 1.60 [place] [address] [address] October, Bipolar 1 disorder, mixed F3 1.60 [place] [address] [address] October, Bipolar 1 disorder, mixed F3 1.60 [place] [address] [address] October, Bipolar 1 disorder, mixed F3 1.60 [place] [address] [address] October, Bipolar 1 disorder, mixed F3 1.60 [place] [address] [address] October, Cervicalgia M54.2 and Bipola r 1 disorder, mixed F31.60 [place] [address] [address] October, Hypertension I10 ; Hyperlipi demia, unspecified hyperlipidemia type E78.5 and Family history of thyroid disease Z83.49 [place] [address] [address] October, [place] [address] [address] October, Hypertension I10 ; Hyperlipi demia, unspecified hyperlipidemia type E78.5 and Family history of thyroid problem Z83.49 [place] [address] [facility] [id number] [address] [place] [id number] October, Bipolar 1 disorder, mixed F3 1.60 [facility] [address] [facility] [id number] [address] [place], [place] [address] Sep, Bipolar 1 disorder, mixed F3 1.60 [facility] [address] [facility] [id number] [address] [place] [id number] Sep, Bipolar 1 disorder, mixed F3 1.60 [facility] [address] [facility] [id number] [address] [place] [id number] Sep, Bipolar 1 disorder, mixed F3 1.60 [place] [address] [place] [id number] [place] [id number] Sep, History of colon polyps Z86. 010 and Hematochezia K92.1 [place] [address] [place] [id number] [place] [phone] Sep, Major depressive disorder, r ecurrent episode, moderate F33.1 [facility] [address] [facility] [id number] [address] [place] [id number] Sep, Bipolar 1 disorder, mixed F3 1.60 [facility] [address] [facility] [id number] [address] [place] [id number] Aug, Hot flashes due to menopause N95.1 [facility] [address] [facility] [id number] [address] [place] [id number] Aug, Bipolar 1 disorder, mixed F3 1.60 [facility] [address] [facility] [id number] [address] [place] [id number] Aug, [facility] [address] [facility] [id number] [address] [place] [id number] Aug, Bipolar 1 disorder, mixed F3 1.60 [facility] [address] [facility] [id number] [address] [place] [id number] Aug, Bipolar 1 disorder, mixed F3 1.60 [place] [address] [address] Aug, Hot flashes due to menopause N95.1 ; Cervicalgia M54.2 and Ataxia R27.0 [place] [address] [address] Jul, Bipolar 1 disorder, mixed F3 1.60 [place] [address] [place] [address] Jul, Bipolar 1 disorder, mixed F3 1.60 [place] [address] Jul, Bipolar 1 disorder, mixed F3 1.60 [place] [address] Jul, Bipolar 1 disorder, mixed F3 1.60 [place] [address] [address] Jul, Bipolar 1 disorder, mixed F3 1.60 [place] [address] [address] Jul, Cervicalgia M54.2 ; Tremor R 25.1 ; Hearing abnormally acute, unspecified laterality H93.239 ; Alopecia L65.9 ; Encounter for immunization Z23 and Family history of thyroid disease Z83.49 [place] [address] [address] Jul, Bipolar 1 disorder, mixed F3 1.60 [place] [address] [address] Jun, [place] [address] [place] [address] Jun, Hearing disorder, unspecifie d laterality H93.299 [place] [address] [address] Jun, Bipolar 1 disorder, mixed F3 1.60 [place] [address] [id number] [address] [place] [id number] Jun, Bipolar 1 disorder, mixed F3 1.60 [facility] [address] [id number] [address] [place] [id number] Jun, Allergic rhinitis J30.9 [facility] [address] [facility] [id number] [address] [place] [id number] Jun, Bipolar 1 disorder, mixed F3 1.60 [facility] [address] [id number] [address] [place] [id number] Jun, Bipolar 1 disorder, mixed F3 1.60 [facility] [address] [id number] [address] [place] [address], [place] [address] Jun, Allergic rhinitis J30.9 [facility] [address] [facility] [id number] [address] [place] [id number] Jun, Allergic rhinitis J30.9 [facility] [address] [facility] [id number] [address] [place] [id number] Jun, Bipolar 1 disorder, mixed F3 1.60 [facility] [address] [facility] [id number] [address] [place] [id number] May, Bipolar 1 disorder, mixed F3 1.60 [facility] [address] [facility] [id number] [address] [place] [id number] May, Bipolar 1 disorder, mixed F3 1.60 [facility] [address] [facility] [id number] [address] [place] [id number] May, [facility] [address] [facility] [id number] [address] [place] [phone] May, Bipolar 1 disorder, mixed F3 1.60 [facility] [address] [facility] [id number] [address] [place] [id number] May, Bipolar 1 disorder, mixed F3 1.60 [facility] [address] [facility] [id number] [address] [place] [phone] May, [facility] [address] [facility] [id number] [address] [place] [id number] May, [facility] [address] [facility] [id number] [address] [place] [id number] May, [facility] [address] [facility] [id number] [address] [place] [id number] May, Abdominal pain, unspecified location R10.9 [facility] [address] [place] [id number] [address] [place] [id number] May, [facility] [address] [place] [id number] [place] [address] Apr, Hematuria R31.9 ; Ataxia R27 .0 and Hearing loss, unspecified laterality H91.90 [facility] [address] [place] [id number] [place] [address] Apr, Bipolar 1 disorder, mixed F3 1.60 [facility] [address] [place] [place] [id number] [address] [place] [id number] Apr, Acute effusion of both middl e ears H65.193 [facility] [address] [address] Apr, Hematuria R31.9 and Pyelonep hritis N12 [facility] [address] [place] [id number] [address] [place] [id number] Apr, [facility] [address] [place] [id number] [address] [place] [id number] Mar, Bipolar 1 disorder, mixed F3 1.60 [facility] [address] [place] [id number] [address] [place] [id number] Mar, [facility] [address] [place] [id number] [place] [address] Mar, Bipolar 1 disorder, mixed F3 1.60 [facility] [address] [place] [id number] [address] [place] [id number] Mar, Bipolar 1 disorder, mixed F3 1.60 [place] [address] [place] [id number] [place] [id number] Mar, Encounter for immunization Z 23 and Gastritis without bleeding, unspecified chronicity, unspecified gastritis type K29.70 [place] [address] [place] [id number] [place] [phone] Mar, Bipolar 1 disorder, mixed F3 1.60 and Grief F43.20 [place] [address] [place] [id number] [place] [address] Mar, Gastritis without bleeding, unspecified chronicity, unspecified gastritis type K29.70 [place] [address] [address] Mar, Bipolar 1 disorder, mixed F3 1.60 [place] [address] [address] Mar, Gastritis without bleeding, unspecified chronicity, unspecified gastritis type K29.70 [place] [address] [place] [id number] [address] [place] [phone] Mar, [place] [address] [address] Feb, Bipolar 1 disorder, mixed F3 1.60 [place] [address] [place] [id number] [place] [id number] Feb, Bipolar 1 disorder, mixed F3 1.60 and Grief F43.20 [place] [address] [place] [id number] [place] [address] Feb, Gastritis without bleeding, unspecified chronicity, unspecified gastritis type K29.70 [place] [address] [place] [id number] [place] [id number] 14 Feb, 2016 Bipolar 1 disorder, mixed F3 1.60 [facility] [address] [place] [id number] [address] [place] [id number] Feb, Gastroesophageal reflux dise ase, esophagitis presence not specified K21.9 [facility] [address] [place] [id number] [place] [address] Jan, Bipolar 1 disorder, mixed F3 1.60 [facility] [address] [place] [id number] [place], [place] [id number] Jan, Bipolar 1 disorder, mixed F3 1.60 and Unsteady gait R26.81 [place] [address] [place] [id number] [place] [address] Jan, Bipolar 1 disorder, mixed F3 1.60 [place] [address] Jan, Bipolar 1 disorder, mixed F3 1.60 and 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 [place] [address] [place] [address] Jan, Bipolar 1 disorder, mixed F3 1.60 [place] [address] [place] [id number] [place] [id number] Jan, Bipolar 1 disorder, mixed F3 1.60 [place] [address] [place] [id number] [address] [place] [address] Jan, Bipolar 1 disorder, mixed F3 1.60 ; Grief F43.20 and 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 [place] [address] [place] [address] Jan, Bipolar 1 disorder, mixed F3 1.60 [place] [address] [place] [id number] [address] [place] [address] Dec, [place] [address] [place] [address] Dec, Bipolar 1 disorder, mixed F3 1.60 ; Vitamin D deficiency, unspecified E55.9 ; H/O allergic rhinitis Z87.09 ; Other chronic pain G89.29 and Dorsalgia, unspecified M54.9 [facility] [address] [id number] [address] [place] [id number] Dec, [facility] [address] [facility] [id number] [address] [place] [id number] Dec, Bipolar 1 disorder, mixed F3 1.60 [facility] [address] [facility] [id number] [address] [place] [id number] Dec, Major depressive disorder, r ecurrent episode, moderate F33.1 [place] [address] [facility] [id number] [address] [place] [id number] Dec, Major depressive disorder, r ecurrent episode, moderate F33.1 [place] [address] [facility] [id number] [address] [place] [id number] Nov, [place] [address] [facility] [id number] [address] [place] [id number] Nov, Bipolar 1 disorder, mixed F3 1.60 [place] [address] [facility] [id number] [address] [place] [id number] Nov, Major depressive disorder, r ecurrent episode, moderate F33.1 [place] [address] [facility] [id number] [address] [place] [id number] Nov, Cervicalgia M54.2 ; Arthralg ia of hip, unspecified laterality M25.559 ; Allergic rhinitis J30.9 and Hormone replacement therapy Z79.890 [facility] [address] [facility] [id number] [address] [place] [phone] Nov, Other seasonal allergic rhin itis J30.2 [facility] [address] [id number] [address] [place] [id number] October, Major depressive disorder, r ecurrent episode, moderate F33.1 [facility] [address] [facility] [id number] [address] [place] [id number] October, Major depressive disorder, r ecurrent episode, moderate F33.1 and Arthralgia of hip, unspecified laterality M25.559 [place] [address] [facility] [id number] [address] [place] [phone] October, Grief F43.20 ; Hypertension I10 ; Hyperlipidemia, unspecified hyperlipidemia type E78.5 ; Other chronic pain G89.29 and Allergic rhinitis, unspecified allergic rhinitis type J30.9 [place] [address] [facility] [id number] [address] [place] [id number] October, Major depressive disorder, r ecurrent episode, moderate F33.1 [place] [address] [facility] [id number] [address] [place] [id number] Sep, Major depressive disorder, r ecurrent episode, moderate F33.1 [place] [address] [place] [id number] [place] [phone] Sep, [place] [address] [place] [id number] [place] [id number] Sep, Major depressive disorder, r ecurrent episode, moderate F33.1 [place] [address] [place] [id number] [place] [phone] Sep, Grief F43.20 [place] [address] [place] [id number] [place] [id number] Aug, Major depressive disorder, r ecurrent episode, moderate F33.1 [place] [address] [place] [id number] [place] [id number] Aug, Bipolar 1 disorder, mixed F3 1.60 [place] [address] [place] [id number] [place] [id number] Aug, Allergic rhinitis J30.9 ; Ce rvicalgia M54.2 and Low back pain M54.5 [place] [address] [place] [id number] [place] [id number] Aug, Major depressive disorder, r ecurrent episode, moderate F33.1 [facility] [address] [place] [id number] [address] [place] [address] Aug, Sinusitis J32.9 and Tobacco 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 [facility] [address] [facility] [id number] [address] [place] [phone] Aug, [facility] [address] [place] [id number] [address] [place] [phone] Aug, Depressive disorder, not els ewhere classified F32.9 ; Hormone replacement therapy Z79.[address] scan, head R93.0 [facility] [address] [facility] [id number] [address] [place] [id number] Aug, Major depressive disorder, r ecurrent episode, moderate F33.1 [facility] [address] [place] [id number] [address] [place] [phone] Jul, Major depressive disorder, r ecurrent episode, moderate F33.1 [place] [address] [place] [id number] [address] [place] [id number] Jul, Abdominal pain R10.9 and Hyp ertension I10 [facility] [address] [facility] [id number] [address] [place] [id number] Jul, [facility] [address] [facility] [id number] [address] [place] [phone] Jul, Major depressive disorder, r ecurrent episode, moderate F33.1 [facility] [address] [place] [id number] [address] [place] [phone] Jul, [facility] [address] [facility] [id number] [address] [place] [phone] Jul, [facility] [address] [facility] [id number] [address] [place] [phone] Jun, [facility] [address] [place] [id number] [address] [place] [phone] Jun, Depressive disorder, not els ewhere classified F32.9 [facility] [address] [place] [id number] [address] [place] [id number] Jun, [facility] [address] [id number] [address] [place] [phone] Jun, [facility] [address] [id number] [address] [place] [phone] Jun, Arthralgia of hip, unspecifi ed laterality M25.559 ; Bruising, spontaneous R23.3 and Night sweats R61 [facility] [address] [id number] [address] [place] [phone] Jun, [facility] [address] [id number] [address] [place] [phone] Jun, [facility] [address] [id number] [address] [place] [phone] May, [facility] [address] [place] [id number] [address] [place] [id number] May, Myalgia M79.1 and Screening, lipid Z13.220 [facility] [address] [facility] [id number] [address] [place] [phone] Apr, Status post cervical spinal fusion Z98.1 ; Fibromyalgia M79.7 and Unsteady gait R26.81 [facility] [address] [id number] [address] [place] [phone] Nov, [facility] [address] [id number] [address] [place] [phone] Nov, [facility] [address] [id number] [address] [place] [phone] October, [facility] [facility] [address] [id number] [address] [place] [id number] October, [facility] [address] [facility] [id number] [address] [place] [phone] October, [facility] [address] [facility] [id number] [address] [place] [id number] October, [facility] [address] [id number] [address] [place] [id number] October, [facility] [address] [id number] [address] [place] [phone] October, Dysuria 788.1 ; Nausea 787.0 2 and Urinary tract infection 599.0 [facility] [address] [id number] [address] [place] [address], [place] [address] Sep, [facility] [address] [id number] [address] [place] [phone] Sep, [facility] [address] [id number] [address] [place] [address], [place] [address] Aug, [facility] [address] [id number] [address] [place] [phone] Aug, [facility] [address] [id number] [address] [place] [phone] Aug, [facility] [address] [id number] [address] [place] [phone] Aug, [facility] [address] [id number] [address] [place] [phone] Aug, [facility] [address] [id number] [address] [place] [phone] Aug, [facility] [address] [id number] [address] [place] [phone] Aug, [facility] [address] [id number] [address] [place] [phone] Aug, [facility] [address] [id number] [address] [place] [id number] Aug, [facility] [address] [id number] [address] [place] [phone] Aug, [facility] [address] [id number] [address] [place] [id number] Aug, [facility] [address] [id number] [address] [place] [address], [place] [address] 13 Aug, 2014 [facility] [address] [id number] [address] [place] [address], [place] [address] 13 Aug, 2014 [facility] [address] [id number] [address] [place] [address], [place] [address] 11 Aug, 2014 [facility] [address] [id number] [address] [place] [address], [place] [address] 11 Aug, 2014 [facility] [address] [id number] [address] [place] [address], [place] [address] 06 Aug, 2014 [facility] [address] [id number] [address] [place] [address], [place] [address] 06 Aug, 2014 [facility] [address] [id number] [address] [place] [address], [place] [address] 05 Aug, 2014 [facility] [address] [id number] [address] [place] [address], [place] [address] 05 Aug, 2014 [facility] [address] [id number] [address] [place] [address], [place] [address] 04 Aug, 2014 [facility] [address] [id number] [address] [place] [address], [place] [address] Aug, [facility] [address] [id number] [address] [place] [address], [place] [address] Aug, [facility] [address] [id number] [address] [place] [address], [place] [address] Jul, 2014 [facility] [address] [id number] [address] [place] [address], [place] [address] Jul, [facility] [address] [id number] [address] [place] [address], [place] [address] Jul, [facility] [address] [id number] [address] [place] [address], [place] [address] Jul, 2014 [facility] [address] [id number] [address] [place] [address], [place] [address] Jul, 2014 [facility] [address] [id number] [address] [place] [address], [place] [address] Jul, 2014 [facility] [address] [id number] [address] [place] [address], [place] [address] Jul, 2014 [facility] [address] [id number] [address] [place] [address], [place] [address] Jul, 2014 [facility] [address] [id number] [address] [place] [address], [place] [address] Jul, 2014 [facility] [address] [id number] [address] [place] [address], [place] [address] Jul, 2014 [facility] [address] [id number] [address] [place] [address], [place] [address] Jul, 2014 [facility] [address] [id number] [address] [place] [address], [place] [address] Jul, 2014 [facility] [address] [id number] [address] [place] [address], [place] [address] Jul, [facility] [address] [id number] [address] [place] [address], [place] [address] Jul, [facility] [address] [id number] [address] [place] [address], [place] [address] Jun, [facility] [address] [id number] [address] [place] [address], [place] [address] Jun, [facility] [address] [id number] [address] [place] [id number] Jun, [facility] [address] [id number] [address] [place] [phone] Jun, [facility] [address] [id number] [address] [place] [id number] Jun, [facility] [address] [id number] [address] [place] [phone] Jun, [facility] [address] [id number] [address] [place] [address], [place] [address] May, [facility] [address] [id number] [address] [place] [address], [place] [address] May, [facility] [address] [id number] [address] [place] [address], [place] [address] May, [facility] [address] [id number] [address] [place] [address], [place] [address] May, [facility] [address] [id number] [address] [place] [address], [place] [address] May, [facility] [address] [id number] [address] [place] [address], [place] [address] May, [facility] [address] [id number] [address] [place] [address], [place] [address] Apr, [facility] [address] [id number] [address] [place] [address], [place] [address] Apr, [facility] [address] [id number] [address] [place] [address], [place] [address] Apr, [facility] [address] [id number] [address] [place] [address], [place] [address] Apr, [facility] [address] [id number] [address] [place] [address], [place] [address] Apr, [facility] [address] [id number] [address] [place] [address], [place] [address] Apr, [facility] [address] [id number] [address] [place] [address], [place] [address] Mar, [facility] [address] [id number] [address] [place] [address], [place] [address] Mar, [facility] [address] [id number] [address] [place] [address], [place] [address] Mar, [facility] [address] [id number] [place] [address] Mar, [facility] [address] [id number] [address] [place] [address], [place] [address] Mar, 2013 [facility] [address] [id number] [address] [place] [address], [place] [address] Mar, [facility] [address] [id number] [address] [place] [address], [place] [address] Mar, 2013 [facility] [address] [id number] [address] [place] [address], [place] [address] Mar, 2013 [facility] [address] [id number] [address] [place] [address], [place] [address] Mar, [facility] [address] [id number] [address] [place] [address], [place] [address] Mar, 2013 [facility] [address] [id number] [address] [place] [address], [place] [address] Mar, [facility] [address] [id number] [address] [place] [address], [place] [address] Mar, [facility] [address] [id number] [address] [place] [address], [place] [address] 30 Feb, 2013 [facility] [address] [id number] [address] [place] [address], [place] [address] 29 Sep, 2013 [facility] [address] [id number] [address] [place] [address], [place] [address] 29 Sep, 2013 [facility] [address] [id number] [address] [place] [id number] 23 Sep, 2013 [facility] [address] [id number] [address] [place] [address], [place] [address] 23 Sep, 2013 [facility] [address] [id number] [address] [place] [address], [place] [address] 08 Feb, 2013 [facility] [address] [id number] [address] [place] [address], [place] [address] 08 Feb, 2013 [facility] [address] [id number] [facility] [place] [address] Jan, [facility] [address] [id number] [facility] [place] [address] Jan, [facility] [address] [id number] [facility] [place] [address] Jan, [facility] [address] [id number] [address] [place] [address], [place] [address] Dec, [facility] [address] [id number] [address] [place] [address], [place] [address] Dec, [facility] [address] [id number] [address] [place] [address], [place] [address] Dec, [facility] [address] [id number] [address] [place] [address], [place] [address] Dec, [facility] [address] [id number] [address] [place] [address], [place] [address] Sep, [facility] [address] [id number] [address] [place] [address], [place] [address] Sep, [facility] [address] [id number] [address] [place] [address], [place] [address] Sep, [facility] [address] [id number] [address] [place] [address], [place] [address] Sep, [facility] [address] [id number] [address] [place] [address], [place] [address] Sep, [facility] [address] [id number] [address] [place] [address], [place] [address] Sep, [facility] [address] [id number] [address] [place] [address], [place] [address] Sep, [facility] [address] [id number] [address] [place] [address], [place] [address] Sep, [facility] [address] [id number] [address] [place] [address], [place] [address] Aug, [facility] [address] [id number] [address] [place] [address], [place] [address] Aug, [facility] [address] [id number] [address] [place] [address], [place] [address] May, [facility] [address] [id number] [address] [place] [address], [place] [address] May, [facility] [address] [id number] [address] [place] [address], [place] [address] Apr, [facility] [address] [id number] [address] [place] [address], [place] [address] Apr, [facility] [address] [id number] [address] [place] [address], [place] [address] Apr, [facility] [address] [id number] [address] [place] [address], [place] [address] Apr, [facility] [address] [id number] [address] [place] [address], [place] [address] Apr, [facility] [address] [id number] [address] [place] [address], [place] [address] Apr, [facility] [address] [id number] [address] [place] [address], [place] [address] May, [facility] [address] [id number] [address] [place] [address], [place] [address] 18 May, 2012 [facility] [address] [id number] [address] [place] [address], [place] [address] 15 May, 2012 [facility] [address] [id number] [address] [place] [address], [place] [address] 15 May, 2012 [facility] [address] [id number] [address] [place] [address], [place] [address] 13 May, 2012 [facility] [address] [id number] [address] [place] [address], [place] [address] 13 May, 2012 [facility] [address] [id number] [address] [place] [id number] 13 Apr, 2012 [facility] [address] [id number] [address] [place] [address], [place] [address] 13 Apr, 2012 [facility] [address] [id number] [address] [place] [id number] 08 Apr, 2012 [facility] [address] [id number] [address] [place] [address], [place] [address] Apr, [facility] [address] [id number] [address] [place] [id number] 08 Apr, 2012 [facility] [address] [id number] [address] [place] [address], [place] [address] Apr, [facility] [address] [id number] [address] [place] [address], [place] [address] Apr, [facility] [address] [id number] [address] [place] [address], [place] [address] Apr, [facility] [address] [id number] [address] [place] [address], [place] [address] Apr, [facility] [address] [id number] [address] [place] [address] Apr, [facility] [address] [id number] [address] [place] [address] Mar, [facility] [address] [id number] [address] [place] [id number] Mar, [facility] [address] [id number] [address] [place] [address] Mar, [facility] [address] [id number] [address] [place] [address] Mar, [facility] [address] [id number] [address] [place] [address], [place] [address] Mar, [facility] [address] [id number] [address] [place] [id number] Mar, [facility] [address] [id number] [facility] [place] [address] Mar, [facility] [address] [id number] [address] [place] [address], [place] [address] Mar, [facility] [address] [id number] [address] [place] [address], [place] [address] Mar, [facility] [address] [id number] [address] [place] [address], [place] [address] 25 Feb, 2012 [facility] [address] [id number] [address] [place] [address], [place] [address] 16 Feb, 2012 [facility] [address] [id number] [address] [place] [address], [place] [address] Feb, [facility] [address] [id number] [address] [place] [address], [place] [address] Jan, [facility] [address] [id number] [address] [place] [address], [place] [address] Jan, [facility] [address] [id number] [address] [place] [address], [place] [address] Jan, [facility] [address] [id number] [address] [place] [address], [place] [address] Jan, [facility] [address] [id number] [address] [place] [address], [place] [address] Jan, [facility] [address] [id number] [address] [place] [address], [place] [address] Jan, [facility] [address] [id number] [address] [place] [address], [place] [address] 16 Jan, 2012 [facility] [address] [id number] [address] [place] [address], [place] [address] Jan, [facility] [address] [id number] [address] [place] [address], [place] [address] Jan, [facility] [address] [id number] [address] [place] [address], [place] [address] Jan, [facility] [address] [id number] [address] [place] [address], [place] [address] Dec, [facility] [address] [id number] [address] [place] [address], [place] [address] Dec, [facility] [address] [id number] [address] [place] [address], [place] [address] Dec, [facility] [address] [id number] [address] [place] [address], [place] [address] Dec, [facility] [address] [id number] [address] [place] [address], [place] [address] Nov, [facility] [address] [id number] [address] [place] [address], [place] [address] Nov, [facility] [address] [id number] [address] [place] [address], [place] [address] Nov, [facility] [address] [id number] [address] [place] [address], [place] [address] October, [facility] [address] [id number] [address] [place] [address], [place] [address] October, [facility] [address] [id number] [address] [place] [address], [place] [address] October, [facility] [address] [id number] [address] [place] [address], [place] [address] October, [facility] [address] [id number] [address] [place] [address], [place] [address] October, [facility] [address] [id number] [address] [place] [address], [place] [address] October, [facility] [address] [id number] [address] [place] [address], [place] [id number] Aug, [facility] [address] [id number] [address] [place] [address], [place] [phone] Mar, [facility] [address] [id number] [address] [place] [phone] 16 Nov, 2010 [facility] [address] [facility] [id number] [address] [place] [phone] May, [facility] [address] [facility] [id number] [address] [place] [phone] May, [facility] [address] [facility] [id number] [address] [place] [phone] Apr, [facility] [address] [facility] [id number] [address] [place] [phone] Mar, [facility] [address] [facility] [id number] [address] [place] [phone] Mar, IMMUNIZATIONS No Known Immunizations SOCIAL HISTORY Never Assessed REASON FOR VISIT PLAN OF CARE VITAL SIGNS MEDICATIONS Unknown Medications RESULTS No Results PROCEDURES No Known procedures INSTRUCTIONS MEDICATIONS ADMINISTERED No Known Medications MEDICAL (GENERAL) HISTORY Type Description Date Medical History Severe spinal stenosis [facility] cervical spine CT and MRI done 10/2014 [...]
--- OUTSIDE RECORDS SUMMARY | 2019-06-19 05:06 | XMS REPORT ---
Author Author Sydnie HANCOCK [facility] Address [address] [place] [address] Care Team Providers Care Professor Of Apologetics Name Role Phone NAHOMY HANCOCK Unavailable PROBLEMS Type Condition ICD9-CM Code BRC51-UO Code Onset Dates Condition S tatus SNOMED Code Problem Abnormal CT scan, head R93.0 Active 511887265 Problem Bruising, spontaneous R23.3 Active 906362830 Problem Sensorineural hearing loss (SNHL) of both ears H90 .3 Active 687856794 Problem Arthralgia of hip, unspecified laterality M25.559 Active 48104851 Problem Night sweats R61 Active 8386750 0 Problem Grief F43.20 Active 53919016 Problem Hypertension I10 Active 9948231 3 Problem Major depressive disorder, recurrent episode, moderate F33.1 Active 940934525 Problem Imbalance R26.89 Active 617210470 Problem Age-related osteoporosis without current pathological fracture M81.0 Active 05413142 Problem Hormone replacement therapy Z79.890 Ac tive 925783295 Problem Ataxia R27.0 Active 92832141 Problem Bipolar 1 disorder, mixed F31.60 Acti ve 96662845 Problem Allergic rhinitis J30.9 Active 61 999999 Problem Hearing loss, unspecified laterality H91.90 Active 69970918 Problem Generalized anxiety disorder F41.1 A ctive 47719320 Problem History of colon polyps Z86.010 Active 156138944 Problem Hammer toe of right foot M20.41 Activ e 902313723 Problem Hematuria, unspecified type R31.9 Ac tive 27352762 Problem Fibromyalgia M79.7 Active 3094247 7 Problem Bladder spasm N32.89 Active 600804 006 Problem Acute left-sided low back pain with left-sided sciatica M54.42 Active 882034722 Problem Post menopausal syndrome N95.1 Activ e 906470267 Problem Hyperlipidemia, unspecified hyperlipidemia type E7 8.5 Active 85212430 Problem Sciatica of right side M54.31 Active 61325858 Problem Other chronic pain G89.29 Active 8 4220280 Problem Gastritis without bleeding, unspecified chronicity, unspecified gastritis type K29.70 Active 204707610 Problem Sciatica of left side M54.32 Active 84676362 Problem Plantar wart of right foot B07.0 Act mitchell [id number] Problem Slow transit constipation K59.01 Acti ve 06867839 Problem Tobacco use disorder F17.200 Active 971728464 ALLERGIES No Information ENCOUNTERS Encounter Location Date Diagnosis [facility] [address] [facility] [id number] [address] [place] [phone] Feb, [place] [address] [facility] [id number] [place] [address] Feb, [place] [address] [address] [place] [id number] [address] [place] [address] Feb, [place] [address] [address] [place] [id number] [address] [place] [address] Jan, [place] [address] [address] [facility] [id number] [address] [place] [address] Jan, Sciatica of right side M54.3 1 ; Low back pain M54.5 and Major depressive disorder, recurrent episode, moderate F33.1 [place] [address] [address] [place] [id number] [address] [place] [address] Jan, Bipolar 1 disorder, mixed F3 1.60 [place] [address] [address] [place] [id number] [address] [place] [address] Dec, Normal pelvic exam Z01.419 [place] [address] [address] [place] [id number] [address] [place] [address] Dec, Bipolar 1 disorder, mixed F3 1.60 [place] [address] [address] [place] [id number] [address] [place] [address] Nov, Bipolar 1 disorder, mixed F3 1.60 [place] [address] [address] [place] [id number] [address] [place] [address] Nov, Bipolar 1 disorder, mixed F3 1.60 ; Generalized anxiety disorder F41.1 ; Tobacco use disorder F17.200 and 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 [facility] [address] [facility] [id number] [address] [place] [phone] Nov, [facility] [address] [facility] [id number] [address] [place] [address] Nov, Bipolar 1 disorder, mixed F3 1.60 [facility] [address] [facility] [id number] [address] [place] [phone] October, Bipolar 1 disorder, mixed F3 1.60 [facility] [address] [facility] [id number] [address] [place] [address] October, Bipolar 1 disorder, mixed F3 1.60 [place] [address] [address] [facility] [id number] [address] [place] [phone] October, [facility] [address] [facility] [id number] [address] [place] [address] October, Bipolar 1 disorder, mixed F3 1.60 ; Generalized anxiety disorder F41.1 and Tobacco use disorder F17.200 [place] [address] [address] [place] [id number] [address] [place] [id number] Sep, [facility] [address] [place] [id number] [address] [place] [address] Sep, Encounter for Medicare [facility] wellness exam Z00.00 ; Major depressive disorder, recurrent episode, moderate F33.1 ; Allergic rhinitis J30.9 ; Bipolar 1 disorder, mixed F31.60 ; Fibromyalgia M79.7 ; Hyperlipidemia, unspecified hyperlipidemia type E78.5 ; Hormone replacement therapy Z79.890 ; Encounter for screening for lung cancer Z12.2 and Tobacco use disorder F17.200 [facility] [address] [facility] [id number] [address] [place] [address] Sep, Bipolar 1 disorder, mixed F3 1.60 [facility] [address] [facility] [id number] [address] [place] [address] Sep, Other chronic pain G89.29 ; Hyperlipidemia, unspecified hyperlipidemia type E78.5 ; Breast cancer screening Z12.31 and Post menopausal syndrome N95.1 [place] [address] [address] [place] [id number] [address] [place] [address] 16 Sep, 2018 Bipolar 1 disorder, mixed F3 1.60 [place] [address] [address] Sep, Bipolar 1 disorder, mixed F3 1.60 ; Generalized anxiety disorder F41.1 and Tobacco use disorder F17.200 [place] [address] [address] Sep, Gastritis without bleeding, unspecified chronicity, unspecified gastritis type K29.70 [place] [address] [address] Sep, Exercise counseling Z71.82 [place] [address] [address] Aug, Exercise counseling Z71.82 [place] [address] [address] Aug, Bipolar 1 disorder, mixed F3 1.60 [place] [address] [address] [place] [id number] [address] [place] [address] Aug, Exercise counseling Z71.82 [place] [address] [address] [place] [id number] [address] [place] [address] Aug, Bipolar 1 disorder, mixed F3 1.60 [place] [address] [address] [place] [id number] [address] [place] [phone] 18 Aug, 2018 Gastritis without bleeding, unspecified chronicity, unspecified gastritis type K29.70 ; Tobacco abuse Z72.0 ; Generalized anxiety disorder F41.1 and Weight gain R63.5 [place] [address] [address] [place] [id number] [address] [place] [phone] 14 Aug, 2018 Bipolar 1 disorder, mixed F3 1.60 ; Generalized anxiety disorder F41.1 and Tobacco use disorder F17.200 [facility] [address] [id number] [address] [place] [address] Jul, Bipolar 1 disorder, mixed F3 1.60 [facility] [address] [id number] [address] [place] [phone] Jul, [facility] [address] [id number] [address] [place] [address] Jul, Bipolar 1 disorder, mixed F3 1.60 [facility] [address] [id number] [address] [place] [address] Jul, Allergic rhinitis J30.9 ; Ma darion depressive disorder, recurrent episode, moderate F33.1 and Tobacco 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 [facility] [address] [facility] [id number] [address] [place] [address] Jun, [facility] [address] [id number] [address] [place] [phone] Jun, [facility] [address] [id number] [address] [place] [address] Jun, Bipolar 1 disorder, mixed F3 1.60 [facility] [address] [facility] [id number] [address] [place] [phone] Jun, Bipolar 1 disorder, mixed F3 1.60 [facility] [address] [id number] [address] [place] [phone] Jun, Bipolar 1 disorder, mixed F3 1.60 [facility] [address] [id number] [address] [place] [address] Jun, Generalized anxiety disorder F41.1 ; Tobacco abuse Z72.0 and Major depressive disorder, recurrent episode, moderate F33.1 [facility] [address] [id number] [address] [place] [address] May, Bipolar 1 disorder, mixed F3 1.60 [facility] [address] [facility] [id number] [address] [place] [id number] May, Bipolar 1 disorder, mixed F3 1.60 and Generalized anxiety disorder F41.1 [facility] [address] [facility] [id number] [address] [place] [address] May, Bipolar 1 disorder, mixed F3 1.60 [facility] [address] [place] [id number] [address] [place] [address] May, Allergic rhinitis J30.9 [facility] [address] [place] [id number] [address] [place] [address] May, Bipolar 1 disorder, mixed F3 1.60 [facility] [address] [place] [id number] [address] [place] [phone] May, [facility] [address] [facility] [id number] [address] [place] [address] Apr, Allergic rhinitis J30.9 ; Dy sfunction of both eustachian tubes H69.83 ; History of bladder surgery Z98.890 and Cervicalgia M54.2 [facility] [address] [place] [id number] [address] [place] [address] Mar, Bipolar 1 disorder, mixed F3 1.60 [facility] [address] [place] [id number] [address] [place] [id number] Mar, [facility] [address] [facility] [id number] [address] [place] [id number] Mar, Slow transit constipation K5 9.01 ; Encounter for immunization Z23 and Generalized anxiety disorder F41.1 [facility] [address] [facility] [id number] [address] [place] [id number] Feb, Bipolar 1 disorder, mixed F3 1.60 [facility] [address] [facility] [id number] [address] [place] [id number] Feb, Allergic rhinitis J30.9 [facility] [address] [facility] [id number] [address] [place] [address] Feb, Bipolar 1 disorder, mixed F3 1.60 [facility] [address] [facility] [id number] [address] [place] [phone] 20 Feb, 2018 Bipolar 1 disorder, mixed F3 1.60 and Generalized anxiety disorder F41.1 [facility] [address] [facility] [id number] [address] [place] [phone] 13 Feb, 2018 Bipolar 1 disorder, mixed F3 1.60 [facility] [address] [facility] [id number] [address] [place] [phone] 11 Feb, 2018 Allergic rhinitis J30.9 [facility] [address] [facility] [id number] [address] [place] [id number] 05 Feb, 2018 [facility] [address] [facility] [id number] [address] [place] [phone] Jan, Bipolar 1 disorder, mixed F3 1.60 [facility] [address] [facility] [id number] [address] [place] [phone] Jan, Low back pain M54.5 ; Hyperl ipidemia, unspecified hyperlipidemia type E78.5 and Bipolar 1 disorder, mixed F31.60 [facility] [address] [facility] [id number] [address] [place] [id number] Jan, Bipolar 1 disorder, mixed F3 1.60 [facility] [address] [facility] [id number] [address] [place] [address] Jan, Bipolar 1 disorder, mixed F3 1.60 [facility] [address] [facility] [id number] [address] [place] [phone] Jan, Bipolar 1 disorder, mixed F3 1.60 [facility] [address] [facility] [id number] [address] [place] [address] Jan, Bipolar 1 disorder, mixed F3 1.60 [facility] [address] [facility] [id number] [address] [place] [address] Dec, Bipolar 1 disorder, mixed F3 1.60 ; Generalized anxiety disorder F41.1 and 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 [facility] [address] [facility] [id number] [address] [place] [address] Dec, 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 Z79.899 [facility] [address] [facility] [id number] [address] [place] [phone] Dec, Bipolar 1 disorder, mixed F3 1.60 [facility] [address] [facility] [id number] [address] [place] [phone] Dec, Bipolar 1 disorder, mixed F3 1.60 [facility] [address] [facility] [id number] [address] [place] [phone] Nov, Bipolar 1 disorder, mixed F3 1.60 [facility] [address] [facility] [id number] [address] [place] [address] Nov, Bipolar 1 disorder, mixed F3 1.60 [place] [address] [address] [facility] [id number] [address] [place] [address] Nov, Bipolar 1 disorder, mixed F3 1.60 [facility] [address] [facility] [id number] [address] [place] [phone] Nov, Allergic rhinitis J30.9 [facility] [address] [facility] [id number] [address] [place] [address] Nov, Allergic rhinitis J30.9 [facility] [address] [facility] [id number] [address] [place] [address] Nov, [facility] [address] [facility] [id number] [address] [place] [phone] Nov, Bipolar 1 disorder, mixed F3 1.60 [facility] [address] [facility] [id number] [address] [place] [address] Nov, Fibromyalgia M79.7 and Aller gic rhinitis J30.9 [facility] [address] [facility] [id number] [address] [place] [address] October, Bipolar 1 disorder, mixed F3 1.60 [facility] [address] [facility] [id number] [address] [place] [phone] October, Acute nasopharyngitis J00 [facility] [address] [facility] [id number] [address] [place] [address] October, Bitten or stung by nonvenomo us insect and other nonvenomous arthropods, initial encounter W57.XXXA and Insect bite (nonvenomous) of abdominal wall, initial encounter S30.861A [facility] [address] [facility] [id number] [address] [place] [address] October, Insect bite (nonvenomous) of abdominal wall, initial encounter S30.861A ; Bitten or stung by nonvenomous insect and other nonvenomous arthropods, initial encounter W57.XXXA ; Allergic rhinitis J30.9 and Low back pain M54.5 [facility] [address] [facility] [id number] [address] [place] [address] October, Bipolar 1 disorder, mixed F3 1.60 [facility] [address] [facility] [id number] [address] [place] [address] October, [facility] [address] [facility] [id number] [address] [place] [address] October, [facility] [address] [place] [id number] [address] [place] [address] October, Bipolar 1 disorder, mixed F3 1.60 [facility] [address] [facility] [id number] [address] [place] [phone] Sep, Bipolar 1 disorder, mixed F3 1.60 [facility] [address] [facility] [id number] [address] [place] [address] Sep, Other chronic pain G89.29 [facility] [address] [facility] [id number] [address] [place] [id number] Sep, [facility] [address] [facility] [id number] [address] [place] [address] Sep, Bipolar 1 disorder, mixed F3 1.60 [facility] [address] [facility] [id number] [address] [place] [address] Sep, Allergic rhinitis J30.9 and Sciatica of left side M54.32 [facility] [address] [facility] [id number] [address] [place] [address] Sep, Bipolar 1 disorder, mixed F3 1.60 [facility] [address] [facility] [id number] [address] [place] [id number] Sep, Bipolar 1 disorder, mixed F3 1.60 and Generalized anxiety disorder F41.1 [facility] [address] [id number] [address] [place] [id number] Aug, [facility] [address] [facility] [id number] [address] [place] [address] Aug, Bipolar 1 disorder, mixed F3 1.60 [facility] [address] [facility] [id number] [address] [place] [address] Aug, Bipolar 1 disorder, mixed F3 1.60 [facility] [address] [facility] [id number] [address] [place] [id number] Aug, [facility] [address] [facility] [id number] [address] [place] [address] Aug, Generalized anxiety disorder F41.1 [facility] [address] [facility] [id number] [address] [place] [id number] Aug, Bipolar 1 disorder, mixed F3 1.60 [facility] [address] [facility] [id number] [address] [place] [phone] Aug, Plantar wart of right foot B 07.0 [facility] [address] [facility] [id number] [address] [place] [phone] Aug, Bipolar 1 disorder, mixed F3 1.60 [facility] [address] [facility] [id number] [address] [place] [address] Jul, Bipolar 1 disorder, mixed F3 1.60 [facility] [address] [facility] [id number] [address] [place] [id number] Jul, [facility] [address] [facility] [id number] [address] [place] [address] Jul, Bipolar 1 disorder, mixed F3 1.60 [facility] [address] [facility] [id number] [address] [place] [phone] 09 Jul, 2017 Generalized anxiety disorder F41.1 [facility] [address] [place] [id number] [address] [place] [address] Jul, Bipolar 1 disorder, mixed F3 1.60 [facility] [address] [place] [id number] [address] [place] [phone] Jul, Acute left-sided low back pa in with left-sided sciatica M54.42 [facility] [address] [place] [id number] [address] [place] [phone] Jul, Coccydynia M53.3 [facility] [address] [place] [id number] [address] [place] [address] Jun, Bipolar 1 disorder, mixed F3 1.60 [facility] [address] [place] [id number] [address] [place] [address] Jun, Acute nasopharyngitis J00 [facility] [address] [place] [id number] [address] [place] [address] Jun, Bipolar 1 disorder, mixed F3 1.60 [facility] [address] [facility] [id number] [address] [place] [address] Jun, Fibromyalgia M79.7 [facility] [address] [facility] [id number] [address] [place] [address] Jun, Bipolar 1 disorder, mixed F3 1.60 [facility] [address] [place] [id number] [address] [place] [address] Jun, Fibromyalgia M79.7 and Bipol ar 1 disorder, mixed F31.60 [facility] [address] [place] [id number] [address] [place] [address] May, Bipolar 1 disorder, mixed F3 1.60 ; Generalized anxiety disorder F41.1 and Other alf (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 Z79.899 [place] [address] [address] May, Bipolar 1 disorder, mixed F3 1.60 [facility] [address] [address] 14 May, 2017 Cough R05 and Body aches R52 [facility] [place] [address] [address] 10 May, 2017 Bladder spasm N32.89 [address] cystitis without hematuria N30.00 [place] [address] [address] 07 May, 2017 Bipolar 1 disorder, mixed F3 1.60 [place] [address] [address] 30 Apr, 2017 [place] [address] [address] Apr, Major depressive disorder, r ecurrent episode, moderate F33.1 and Encounter for immunization Z23 [place] [address] [address] Apr, Bipolar 1 disorder, mixed F3 1.60 [place] [address] [address] Apr, Bipolar 1 disorder, mixed F3 1.60 [place] [address] [address] 16 Apr, 2017 Bipolar 1 disorder, mixed F3 1.60 [place] [address] [address] Apr, Yeast vaginitis B37.3 [place] [address] [address] 09 Apr, 2017 Bipolar 1 disorder, mixed F3 1.60 [facility] [address] [facility] [id number] [address] [place] [address] 07 Apr, [address]03[address] for immunization Z23 [facility] [address] [facility] [id number] [address] [place], [place] [id number] Apr, Bipolar 1 disorder, mixed F3 1.60 [facility] [id number] [place], [place] [id number] Mar, Bipolar 1 disorder, mixed F3 1.60 [facility] [address] [id number] [place], [place] [id number] Mar, Bipolar 1 disorder, mixed F3 1.60 [facility] [id number] [place], [place] [id number] Mar, Imbalance R26.89 and Encount er for immunization Z23 [facility] [address] [id number] [place] [id number] Mar, Generalized anxiety disorder F41.1 [facility] [id number] [place] [id number] Mar, Bipolar 1 disorder, mixed F3 1.60 [facility] [address] [id number] [place] [id number] Mar, Generalized anxiety disorder F41.1 [facility] [id number] [place], [place] [id number] Mar, Bipolar 1 disorder, mixed F3 1.60 [facility] [id number] [place] [id number] Mar, Bipolar 1 disorder, mixed F3 1.60 [facility] [facility] [address] [id number] [address] [place], [place] [address] Feb, Bipolar 1 disorder, mixed F3 1.60 [facility] [address] [id number] [address] [place] [address] Feb, Bipolar 1 disorder, mixed F3 1.60 and Generalized anxiety disorder F41.1 [facility] [address] [facility] [id number] [address] [place] [address] Feb, Gastritis without bleeding, unspecified chronicity, unspecified gastritis type K29.70 ; Hammer toe of right foot M20.41 and Other viral warts B07.8 [place] [address] [address] [facility] [id number] [address] [place] [address] Feb, Bipolar 1 disorder, mixed F3 1.60 [place] [address] [address] [facility] [id number] [address] [place] [address] 13 Feb, 2017 Bipolar 1 disorder, mixed F3 1.60 [place] [address] [address] [facility] [id number] [address] [place] [phone] 05 Feb, 2017 Bipolar 1 disorder, mixed F3 1.60 [place] [address] [address] [facility] [id number] [address] [place] [address] Jan, Encounter for screening mamm ogram for breast cancer Z12.31 ; Other viral warts B07.8 and Allergic rhinitis J30.9 [place] [address] [address] [facility] [id number] [address] [place] [phone] Jan, Bipolar 1 disorder, mixed F3 1.60 [place] [address] [address] [facility] [id number] [address] [place] [phone] Jan, Bipolar 1 disorder, mixed F3 1.60 [place] [address] [address] [facility] [id number] [address] [place] [phone] Jan, [place] [address] [address] [facility] [id number] [address] [place] [id number] Jan, Bipolar 1 disorder, mixed F3 1.60 [place] [address] [address] [facility] [id number] [address] [place] [address] Jan, Bipolar 1 disorder, mixed F3 1.60 [place] [address] [address] [facility] [id number] [address] [place] [phone] Jan, Allergic rhinitis J30.9 ; He maturia R31.9 and Colon cancer screening Z12.11 [facility] [address] [facility] [id number] [address] [place] [address] Dec, Bipolar 1 disorder, mixed F3 1.60 [facility] [address] [facility] [id number] [address] [place] [address] Dec, Bipolar 1 disorder, mixed F3 1.60 ; Generalized anxiety disorder F41.1 and Other alf (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 Z79.899 [facility] [address] [facility] [id number] [address] [place] [address] Dec, Bipolar 1 disorder, mixed F3 1.60 [facility] [address] [facility] [id number] [address] [place] [address] Dec, Bipolar 1 disorder, mixed F3 1.60 [facility] [address] [id number] [address] [place] [id number] Dec, Bipolar 1 disorder, mixed F3 1.60 [facility] [address] [facility] [id number] [address] [place] [address] Dec, Low back pain M54.5 and Recu rrent urinary tract infection N39.0 [facility] [address] [facility] [id number] [address] [place] [address] Nov, Bipolar 1 disorder, mixed F3 1.60 [facility] [address] [facility] [id number] [address] [place] [address] Nov, Bipolar 1 disorder, mixed F3 1.60 [facility] [address] [facility] [id number] [address] [place] [id number] Nov, Bipolar 1 disorder, mixed F3 1.60 [facility] [address] [facility] [id number] [address] [place] [id number] Nov, Bipolar 1 disorder, mixed F3 1.60 [facility] [address] [facility] [id number] [address] [place] [address] Nov, [facility] [address] [address] 08 Nov, 2016 Anesthesia of skin R20.0 ; F requent UTI N39.0 ; Tobacco abuse Z72.0 and Colon cancer screening Z12.11 [place] [address] [address] Nov, Bipolar 1 disorder, mixed F3 1.60 [place] [address] [place] [id number] October, Bipolar 1 disorder, mixed F3 1.60 [place] [address] [address] October, Bipolar 1 disorder, mixed F3 1.60 [place] [address] [address] October, Bipolar 1 disorder, mixed F3 1.60 [place] [address] [address] October, Bipolar 1 disorder, mixed F3 1.60 [place] [address] [address] October, Bipolar 1 disorder, mixed F3 1.60 [place] [address] [address] October, Cervicalgia M54.2 and Bipola r 1 disorder, mixed F31.60 [place] [address] [address] October, Hypertension I10 ; Hyperlipi demia, unspecified hyperlipidemia type E78.5 and Family history of thyroid disease Z83.49 [place] [address] [address] October, [place] [address] [address] October, Hypertension I10 ; Hyperlipi demia, unspecified hyperlipidemia type E78.5 and Family history of thyroid problem Z83.49 [place] [address] [facility] [id number] [address] [place] [address] October, Bipolar 1 disorder, mixed F3 1.60 [facility] [address] [facility] [id number] [address] [place] [address] Sep, Bipolar 1 disorder, mixed F3 1.60 [facility] [address] [facility] [id number] [address] [place] [address] Sep, Bipolar 1 disorder, mixed F3 1.60 [facility] [address] [facility] [id number] [address] [place] [address] Sep, Bipolar 1 disorder, mixed F3 1.60 [place] [address] [place] [id number] [address] [place] [address] Sep, History of colon polyps Z86. 010 and Hematochezia K92.1 [place] [address] [place] [id number] [address] [place] [id number] Sep, Major depressive disorder, r ecurrent episode, moderate F33.1 [facility] [address] [facility] [id number] [address] [place] [id number] Sep, Bipolar 1 disorder, mixed F3 1.60 [facility] [address] [facility] [id number] [address] [place] [address] Aug, Hot flashes due to menopause N95.1 [facility] [address] [facility] [id number] [address] [place] [address] Aug, Bipolar 1 disorder, mixed F3 1.60 [facility] [address] [facility] [id number] [address] [place] [address] Aug, [facility] [address] [facility] [id number] [address] [place] [address] Aug, Bipolar 1 disorder, mixed F3 1.60 [facility] [address] [facility] [id number] [address] [place] [address] Aug, Bipolar 1 disorder, mixed F3 1.60 [place] [address] [address] Aug, Hot flashes due to menopause N95.1 ; Cervicalgia M54.2 and Ataxia R27.0 [place] [address] [address] Jul, Bipolar 1 disorder, mixed F3 1.60 [place] [address] [place] [address] Jul, Bipolar 1 disorder, mixed F3 1.60 [place] [address] Jul, Bipolar 1 disorder, mixed F3 1.60 [place] [address] Jul, Bipolar 1 disorder, mixed F3 1.60 [place] [address] [address] Jul, Bipolar 1 disorder, mixed F3 1.60 [place] [address] [address] Jul, Cervicalgia M54.2 ; Tremor R 25.1 ; Hearing abnormally acute, unspecified laterality H93.239 ; Alopecia L65.9 ; Encounter for immunization Z23 and Family history of thyroid disease Z83.49 [place] [address] [address] Jul, Bipolar 1 disorder, mixed F3 1.60 [place] [address] [address] Jun, [place] [address] [place] [id number] Jun, Hearing disorder, unspecifie d laterality H93.299 [place] [address] [address] Jun, Bipolar 1 disorder, mixed F3 1.60 [place] [address] [id number] [address] [place] [address] Jun, Bipolar 1 disorder, mixed F3 1.60 [facility] [address] [id number] [address] [place] [address] Jun, Allergic rhinitis J30.9 [facility] [address] [facility] [id number] [address] [place] [address] Jun, Bipolar 1 disorder, mixed F3 1.60 [facility] [address] [id number] [address] [place] [address] Jun, Bipolar 1 disorder, mixed F3 1.60 [facility] [address] [id number] [address] [place] [address], [place] [address] Jun, Allergic rhinitis J30.9 [facility] [address] [facility] [id number] [address] [place] [address] Jun, Allergic rhinitis J30.9 [facility] [address] [facility] [id number] [address] [place] [address] Jun, Bipolar 1 disorder, mixed F3 1.60 [facility] [address] [facility] [id number] [address] [place] [address] May, Bipolar 1 disorder, mixed F3 1.60 [facility] [address] [facility] [id number] [address] [place] [address] May, Bipolar 1 disorder, mixed F3 1.60 [facility] [address] [facility] [id number] [address] [place] [id number] May, [facility] [address] [facility] [id number] [address] [place] [address] May, Bipolar 1 disorder, mixed F3 1.60 [facility] [address] [facility] [id number] [address] [place] [address] May, Bipolar 1 disorder, mixed F3 1.60 [facility] [address] [facility] [id number] [address] [place] [address] May, [facility] [address] [facility] [id number] [address] [place] [address] May, [facility] [address] [facility] [id number] [address] [place] [address] May, [facility] [address] [facility] [id number] [address] [place] [address] May, Abdominal pain, unspecified location R10.9 [facility] [address] [id number] [address] [place] [address] May, [facility] [id number] [place] [address] Apr, Hematuria R31.9 ; Ataxia R27 .0 and Hearing loss, unspecified laterality H91.90 [facility] [id number] [place] [address] Apr, Bipolar 1 disorder, mixed F3 1.60 [facility] [address] [id number] [address] [place] [address] Apr, Acute effusion of both middl e ears H65.193 [facility] [address] [address] Apr, Hematuria R31.9 and Pyelonep hritis N12 [facility] [address] [place] [id number] [address] [place] [address] Apr, [facility] [address] [id number] [address] [place] [address] Mar, Bipolar 1 disorder, mixed F3 1.60 [facility] [address] [place] [id number] [address] [place] [address] Mar, [facility] [id number] [place] [address] Mar, Bipolar 1 disorder, mixed F3 1.60 [facility] [address] [place] [address] [id number] [address] [place] [address] Mar, Bipolar 1 disorder, mixed F3 1.60 [place] [address] [place] [id number] [place] [address] Mar, Encounter for immunization Z 23 and Gastritis without bleeding, unspecified chronicity, unspecified gastritis type K29.70 [place] [address] [place] [id number] [place] [address] Mar, Bipolar 1 disorder, mixed F3 1.60 and Grief F43.20 [place] [address] [place] [id number] [place] [address] Mar, Gastritis without bleeding, unspecified chronicity, unspecified gastritis type K29.70 [place] [address] [address] Mar, Bipolar 1 disorder, mixed F3 1.60 [place] [address] [address] Mar, Gastritis without bleeding, unspecified chronicity, unspecified gastritis type K29.70 [place] [address] [place] [id number] [address] [place] [address] Mar, [place] [address] [address] Feb, Bipolar 1 disorder, mixed F3 1.60 [place] [address] [place] [id number] [place] [address] Feb, Bipolar 1 disorder, mixed F3 1.60 and Grief F43.20 [place] [address] [place] [id number] [place] [address] Feb, Gastritis without bleeding, unspecified chronicity, unspecified gastritis type K29.70 [place] [address] [place] [id number] [place] [address] 14 Feb, 2016 Bipolar 1 disorder, mixed F3 1.60 [facility] [address] [id number] [address] [place] [address] Feb, Gastroesophageal reflux dise ase, esophagitis presence not specified K21.9 [facility] [address] [place] [id number] [place] [address] Jan, Bipolar 1 disorder, mixed F3 1.60 [facility] [address] [place] [id number] [place] [id number] Jan, Bipolar 1 disorder, mixed F3 1.60 and Unsteady gait R26.81 [place] [address] [place] [id number] [place] [address] Jan, Bipolar 1 disorder, mixed F3 1.60 [place] [address] Jan, Bipolar 1 disorder, mixed F3 1.60 and Other alf (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 Z79.899 [place] [address] [place] [address] Jan, Bipolar 1 disorder, mixed F3 1.60 [place] [address] [place] [id number] [place] [address] Jan, Bipolar 1 disorder, mixed F3 1.60 [place] [address] [place] [id number] [address] [place] [address] Jan, Bipolar 1 disorder, mixed F3 1.60 ; Grief F43.20 and 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 [place] [address] [place] [address] Jan, Bipolar 1 disorder, mixed F3 1.60 [place] [address] [place] [id number] [place] [address] Dec, [place] [address] [place] [address] Dec, Bipolar 1 disorder, mixed F3 1.60 ; Vitamin D deficiency, unspecified E55.9 ; H/O allergic rhinitis Z87.09 ; Other chronic pain G89.29 and Dorsalgia, unspecified M54.9 [facility] [address] [id number] [address] [place] [address] Dec, [facility] [address] [facility] [id number] [address] [place] [address] Dec, Bipolar 1 disorder, mixed F3 1.60 [facility] [address] [facility] [id number] [address] [place] [address] Dec, Major depressive disorder, r ecurrent episode, moderate F33.1 [place] [address] [facility] [id number] [address] [place] [address] Dec, Major depressive disorder, r ecurrent episode, moderate F33.1 [place] [address] [facility] [id number] [address] [place] [address] Nov, [place] [address] [facility] [id number] [address] [place] [address] Nov, Bipolar 1 disorder, mixed F3 1.60 [place] [address] [address] [facility] [id number] [address] [place] [address] Nov, Major depressive disorder, r ecurrent episode, moderate F33.1 [place] [address] [facility] [id number] [address] [place] [address] Nov, Cervicalgia M54.2 ; Arthralg ia of hip, unspecified laterality M25.559 ; Allergic rhinitis J30.9 and Hormone replacement therapy Z79.890 [facility] [address] [facility] [id number] [address] [place] [address] Nov, Other seasonal allergic rhin itis J30.2 [facility] [address] [id number] [address] [place] [address] October, Major depressive disorder, r ecurrent episode, moderate F33.1 [facility] [address] [facility] [id number] [address] [place] [address] October, Major depressive disorder, r ecurrent episode, moderate F33.1 and Arthralgia of hip, unspecified laterality M25.559 [place] [address] [facility] [id number] [address] [place] [address] October, Grief F43.20 ; Hypertension I10 ; Hyperlipidemia, unspecified hyperlipidemia type E78.5 ; Other chronic pain G89.29 and Allergic rhinitis, unspecified allergic rhinitis type J30.9 [place] [address] [facility] [id number] [address] [place] [address] October, Major depressive disorder, r ecurrent episode, moderate F33.1 [place] [address] [facility] [id number] [address] [place] [address] Sep, Major depressive disorder, r ecurrent episode, moderate F33.1 [place] [address] [place] [id number] [place] [address] Sep, [place] [address] [place] [id number] [place] [address] Sep, Major depressive disorder, r ecurrent episode, moderate F33.1 [place] [address] [place] [id number] [place] [address] Sep, Grief F43.20 [place] [address] [place] [id number] [place] [address] Aug, Major depressive disorder, r ecurrent episode, moderate F33.1 [place] [address] [place] [id number] [place] [address] Aug, Bipolar 1 disorder, mixed F3 1.60 [place] [address] [place] [id number] [place] [address] Aug, Allergic rhinitis J30.9 ; Ce rvicalgia M54.2 and Low back pain M54.5 [place] [address] [place] [id number] [place] [address] Aug, Major depressive disorder, r ecurrent episode, moderate F33.1 [facility] [address] [place] [id number] [place] [address] Aug, Sinusitis J32.9 and Tobacco 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 [facility] [address] [facility] [id number] [address] [place] [address] Aug, [facility] [address] [place] [id number] [place] [address] Aug, Depressive disorder, not els ewhere classified F32.9 ; Hormone replacement therapy Z79.[address] scan, head R93.0 [facility] [address] [facility] [id number] [address] [place] [address] Aug, Major depressive disorder, r ecurrent episode, moderate F33.1 [facility] [address] [place] [id number] [place] [address] Jul, Major depressive disorder, r ecurrent episode, moderate F33.1 [place] [address] [place] [id number] [place] [address] Jul, Abdominal pain R10.9 and Hyp ertension I10 [facility] [address] [facility] [id number] [address] [place] [address] Jul, [facility] [address] [facility] [id number] [address] [place] [address] Jul, Major depressive disorder, r ecurrent episode, moderate F33.1 [facility] [address] [place] [id number] [address] [place] [address] Jul, [facility] [address] [facility] [id number] [address] [place] [id number] Jul, [facility] [address] [facility] [id number] [address] [place] [id number] Jun, [facility] [address] [place] [id number] [address] [place] [id number] Jun, Depressive disorder, not els ewhere classified F32.9 [facility] [address] [place] [id number] [address] [place] [id number] Jun, [facility] [address] [id number] [address] [place] [id number] Jun, [facility] [address] [id number] [address] [place] [id number] Jun, Arthralgia of hip, unspecifi ed laterality M25.559 ; Bruising, spontaneous R23.3 and Night sweats R61 [facility] [address] [id number] [address] [place] [id number] Jun, [facility] [address] [id number] [address] [place] [id number] Jun, [facility] [address] [id number] [address] [place] [id number] May, [facility] [address] [place] [id number] [address] [place] [id number] May, Myalgia M79.1 and Screening, lipid Z13.220 [facility] [address] [facility] [id number] [address] [place] [id number] Apr, Status post cervical spinal fusion Z98.1 ; Fibromyalgia M79.7 and Unsteady gait R26.81 [facility] [address] [id number] [address] [place] [phone] Nov, [facility] [address] [id number] [address] [place] [id number] Nov, [facility] [address] [id number] [address] [place] [id number] October, [facility] [address] [id number] [address] [place] [id number] October, [facility] [address] [facility] [id number] [address] [place] [phone] October, [facility] [address] [facility] [id number] [address] [place] [phone] October, [facility] [address] [id number] [address] [place] [id number] October, [facility] [address] [id number] [address] [place] [id number] October, Dysuria 788.1 ; Nausea 787.0 2 and Urinary tract infection 599.0 [facility] [address] [id number] [address] [place] [address], [place] [id number] Sep, [facility] [address] [id number] [address] [place] [phone] Sep, [facility] [address] [id number] [address] [place] [address], [place] [id number] Aug, [facility] [address] [id number] [address] [place] [phone] Aug, [facility] [address] [id number] [address] [place] [phone] Aug, [facility] [address] [id number] [address] [place] [phone] Aug, [facility] [facility] [address] [id number] [address] [place] [id number] Aug, [facility] [address] [id number] [address] [place] [id number] Aug, [facility] [address] [id number] [address] [place] [address] Aug, [facility] [address] [id number] [address] [place] [id number] Aug, [facility] [address] [id number] [address] [place] [id number] Aug, [facility] [address] [id number] [address] [place] [phone] Aug, [facility] [address] [id number] [address] [place] [id number] Aug, [facility] [address] [id number] [address] [place] [address], [place] [id number] 13 Aug, 2014 [facility] [address] [id number] [address] [place] [address], [place] [id number] 13 Aug, 2014 [facility] [address] [id number] [address] [place] [address], [place] [id number] 11 Aug, 2014 [facility] [address] [id number] [address] [place] [address], [place] [id number] 11 Aug, 2014 [facility] [address] [id number] [address] [place] [address], [place] [id number] 06 Aug, 2014 [facility] [address] [id number] [address] [place] [address], [place] [address] 06 Aug, 2014 [facility] [address] [id number] [address] [place] [address], [place] [id number] 05 Aug, 2014 [facility] [address] [id number] [address] [place] [address], [place] [id number] 05 Aug, 2014 [facility] [address] [id number] [address] [place] [address], [place] [id number] 04 Aug, 2014 [facility] [address] [id number] [address] [place] [address], [place] [address] Aug, [facility] [address] [id number] [address] [place] [address], [place] [id number] Aug, [facility] [address] [id number] [address] [place] [address], [place] [address] Jul, 2014 [facility] [address] [id number] [address] [place] [address], [place] [address] Jul, [facility] [address] [id number] [address] [place] [address], [place] [address] Jul, [facility] [address] [id number] [address] [place] [address], [place] [address] Jul, 2014 [facility] [address] [id number] [address] [place] [address], [place] [address] Jul, 2014 [facility] [address] [id number] [address] [place] [address], [place] [address] Jul, 2014 [facility] [address] [id number] [address] [place] [address], [place] [address] Jul, 2014 [facility] [address] [id number] [address] [place] [address], [place] [address] Jul, 2014 [facility] [address] [id number] [address] [place] [address], [place] [address] Jul, 2014 [facility] [address] [id number] [address] [place] [address], [place] [address] Jul, 2014 [facility] [address] [id number] [address] [place] [address], [place] [address] Jul, 2014 [facility] [address] [id number] [address] [place] [address], [place] [address] Jul, 2014 [facility] [address] [id number] [address] [place] [address], [place] [address] Jul, [facility] [address] [id number] [address] [place] [address], [place] [address] Jul, [facility] [address] [id number] [address] [place] [address], [place] [address] Jun, [facility] [address] [id number] [address] [place] [address], [place] [address] Jun, [facility] [address] [id number] [address] [place] [id number] Jun, [facility] [address] [id number] [address] [place] [id number] Jun, [facility] [address] [id number] [address] [place] [address] Jun, [facility] [address] [id number] [address] [place] [id number] Jun, [facility] [address] [id number] [address] [place] [address], [place] [address] May, [facility] [address] [id number] [address] [place] [address], [place] [address] May, [facility] [address] [id number] [address] [place] [address], [place] [address] May, [facility] [address] [id number] [address] [place] [address], [place] [address] May, [facility] [address] [id number] [address] [place] [address], [place] [address] May, [facility] [address] [id number] [address] [place] [address], [place] [address] May, [facility] [address] [id number] [address] [place] [address], [place] [address] Apr, [facility] [address] [id number] [address] [place] [address], [place] [address] Apr, [facility] [address] [id number] [address] [place] [address], [place] [address] Apr, [facility] [address] [id number] [address] [place] [address], [place] [address] Apr, [facility] [address] [id number] [address] [place] [address], [place] [address] Apr, [facility] [address] [id number] [address] [place] [address], [place] [address] Apr, [facility] [address] [id number] [address] [place] [address], [place] [address] Mar, [facility] [address] [id number] [address] [place] [address], [place] [address] Mar, [facility] [address] [id number] [address] [place] [address], [place] [address] Mar, [facility] [address] [id number] [address] [address] Mar, [facility] [address] [id number] [address] [place] [address], [place] [address] Mar, 2013 [facility] [address] [id number] [address] [place] [address], [place] [address] Mar, [facility] [address] [id number] [address] [place] [address], [place] [address] Mar, 2013 [facility] [address] [id number] [address] [place] [address], [place] [address] Mar, 2013 [facility] [address] [id number] [address] [place] [address], [place] [address] Mar, [facility] [address] [id number] [address] [place] [address], [place] [address] Mar, 2013 [facility] [address] [id number] [address] [place] [address], [place] [address] Mar, [facility] [address] [id number] [address] [place] [address], [place] [address] Mar, [facility] [address] [id number] [address] [place] [address], [place] [address] 30 Feb, 2013 [facility] [address] [id number] [address] [place] [address], [place] [id number] 29 Sep, 2013 [facility] [address] [id number] [address] [place] [address], [place] [address] 29 Sep, 2013 [facility] [address] [id number] [address] [place] [address] 23 Sep, 2013 [facility] [address] [id number] [address] [place] [address], [place] [id number] 23 Sep, 2013 [facility] [address] [id number] [address] [place] [address], [place] [id number] 08 Feb, 2013 [facility] [address] [id number] [address] [place] [address], [place] [id number] 08 Feb, 2013 [facility] [address] [id number] [facility] [place] [address] Jan, [facility] [address] [id number] [facility] [place] [address] Jan, [facility] [address] [id number] [facility] [place] [address] Jan, [facility] [address] [id number] [address] [place] [address], [place] [address] Dec, [facility] [address] [id number] [address] [place] [address], [place] [address] Dec, [facility] [address] [id number] [address] [place] [address], [place] [address] Dec, [facility] [address] [id number] [address] [place] [address], [place] [address] Dec, [facility] [address] [id number] [address] [place] [address], [place] [address] Sep, [facility] [address] [id number] [address] [place] [address], [place] [address] Sep, [facility] [address] [id number] [address] [place] [address], [place] [address] Sep, [facility] [address] [id number] [address] [place] [address], [place] [address] Sep, [facility] [address] [id number] [address] [place] [address], [place] [address] Sep, [facility] [address] [id number] [address] [place] [address], [place] [address] Sep, [facility] [address] [id number] [address] [place] [address], [place] [address] Sep, [facility] [address] [id number] [address] [place] [address], [place] [address] Sep, [facility] [address] [id number] [address] [place] [address], [place] [address] Aug, [facility] [address] [id number] [address] [place] [address], [place] [address] Aug, [facility] [address] [id number] [address] [place] [address], [place] [address] May, [facility] [address] [id number] [address] [place] [address], [place] [address] May, [facility] [address] [id number] [address] [place] [address], [place] [address] Apr, [facility] [address] [id number] [address] [place] [address], [place] [address] Apr, [facility] [address] [id number] [address] [place] [address], [place] [address] Apr, [facility] [address] [id number] [address] [place] [address], [place] [address] Apr, [facility] [address] [id number] [address] [place] [address], [place] [address] Apr, [facility] [address] [id number] [address] [place] [address], [place] [address] Apr, [facility] [address] [id number] [address] [place] [address], [place] [address] May, [facility] [address] [id number] [address] [place] [address], [place] [id number] 18 May, 2012 [facility] [address] [id number] [address] [place] [address], [place] [address] 15 May, 2012 [facility] [address] [id number] [address] [place] [address], [place] [id number] 15 May, 2012 [facility] [address] [id number] [address] [place] [address], [place] [address] 13 May, 2012 [facility] [address] [id number] [address] [place] [address], [place] [id number] 13 May, 2012 [facility] [address] [id number] [address] [place] [address] 13 Apr, 2012 [facility] [address] [id number] [address] [place] [address], [place] [id number] 13 Apr, 2012 [facility] [address] [id number] [address] [place] [id number] 08 Apr, 2012 [facility] [address] [id number] [address] [place] [address], [place] [address] Apr, [facility] [address] [id number] [address] [place] [address] 08 Apr, 2012 [facility] [address] [id number] [address] [place] [address], [place] [address] Apr, [facility] [address] [id number] [address] [place] [address], [place] [address] Apr, [facility] [address] [id number] [address] [place] [address], [place] [address] Apr, [facility] [address] [id number] [address] [place] [address], [place] [address] Apr, [facility] [address] [id number] [address] [place] [address] Apr, [facility] [address] [id number] [address] [place] [id number] Mar, [facility] [address] [id number] [address] [place] [address] Mar, [facility] [address] [id number] [address] [place] [address] Mar, [facility] [address] [id number] [address] [place] [address] Mar, [facility] [address] [id number] [address] [place] [address], [place] [address] Mar, [facility] [address] [id number] [address] [place] [id number] Mar, [facility] [address] [id number] [facility] [place] [address] Mar, [facility] [address] [id number] [address] [place] [address], [place] [address] Mar, [facility] [address] [id number] [address] [place] [address], [place] [address] Mar, [facility] [address] [id number] [address] [place] [address], [place] [address] 25 Feb, 2012 [facility] [address] [id number] [address] [place] [address], [place] [id number] 16 Feb, 2012 [facility] [address] [id number] [address] [place] [address], [place] [address] Feb, [facility] [address] [id number] [address] [place] [address], [place] [address] Jan, [facility] [address] [id number] [address] [place] [address], [place] [address] Jan, [facility] [address] [id number] [address] [place] [address], [place] [address] Jan, [facility] [address] [id number] [address] [place] [address], [place] [address] Jan, [facility] [address] [id number] [address] [place] [address], [place] [address] Jan, [facility] [address] [id number] [address] [place] [address], [place] [address] Jan, [facility] [address] [id number] [address] [place] [address], [place] [id number] 16 Jan, 2012 [facility] [address] [id number] [address] [place] [address], [place] [address] Jan, [facility] [address] [id number] [address] [place] [address], [place] [address] Jan, [facility] [address] [id number] [address] [place] [address], [place] [address] Jan, [facility] [address] [id number] [address] [place] [address], [place] [address] Dec, [facility] [address] [id number] [address] [place] [address], [place] [address] Dec, [facility] [address] [id number] [address] [place] [address], [place] [address] Dec, [facility] [address] [id number] [address] [place] [address], [place] [address] Dec, [facility] [address] [id number] [address] [place] [address], [place] [address] Nov, [facility] [address] [id number] [address] [place] [address], [place] [address] Nov, [facility] [address] [id number] [address] [place] [address], [place] [address] Nov, [facility] [address] [id number] [address] [place] [address], [place] [address] October, [facility] [address] [id number] [address] [place] [address], [place] [address] October, [facility] [address] [id number] [address] [place] [address], [place] [address] October, [facility] [address] [id number] [address] [place] [address], [place] [address] October, [facility] [address] [id number] [address] [place] [address], [place] [address] October, [facility] [address] [id number] [address] [place] [address], [place] [id number] October, [facility] [address] [id number] [address] [place] [address], [place] [address] Aug, [facility] [address] [id number] [address] [place] [address], [place] [address] Mar, [facility] [address] [id number] [address] [place] [id number] 16 Nov, 2010 [facility] [address] [facility] [id number] [address] [place] [id number] May, [facility] [address] [facility] [id number] [address] [place] [address] May, [facility] [address] [facility] [id number] [address] [place] [id number] Apr, [facility] [address] [facility] [id number] [address] [place] [id number] Mar, [facility] [address] [facility] [id number] [address] [place] [id number] Mar, IMMUNIZATIONS No Known Immunizations SOCIAL HISTORY Never Assessed REASON FOR VISIT PLAN OF CARE VITAL SIGNS MEDICATIONS Unknown Medications RESULTS No Results PROCEDURES No Known procedures INSTRUCTIONS MEDICATIONS ADMINISTERED No Known Medications MEDICAL (GENERAL) HISTORY Type Description Date Medical History Severe spinal stenosis [facility] cervical spine CT and MRI done 10/2014 [...]
--- OUTSIDE RECORDS SUMMARY | 2019-06-19 05:06 | XMS REPORT ---
Author Author Sydnie HANCOCK [facility] Address [address] [place] [address] Care Team Providers Care Heel Trimmer Name Role Phone NAHOMY HANCOCK Unavailable PROBLEMS Type Condition ICD9-CM Code [id number] Code Onset Dates Condition S tatus SNOMED Code Problem Abnormal CT scan, head R93.0 Active 904343540 Problem Bruising, spontaneous R23.3 Active 770046056 Problem Sensorineural hearing loss (SNHL) of both ears H90 .3 Active 174036653 Problem Arthralgia of hip, unspecified laterality M25.559 Active 82752722 Problem Night sweats R61 Active 3960448 0 Problem Grief F43.20 Active 26417965 Problem Hypertension I10 Active 4763330 3 Problem Major depressive disorder, recurrent episode, moderate F33.1 Active 855436609 Problem Imbalance R26.89 Active 618986793 Problem Age-related osteoporosis without current pathological fracture M81.0 Active 45000486 Problem Hormone replacement therapy Z79.890 Ac tive 830856620 Problem Ataxia R27.0 Active 89763188 Problem Bipolar 1 disorder, mixed F31.60 Acti ve 41640721 Problem Allergic rhinitis J30.9 Active 61 432634 Problem Hearing loss, unspecified laterality H91.90 Active 99521447 Problem Generalized anxiety disorder F41.1 A ctive 32803104 Problem History of colon polyps Z86.010 Active 298617074 Problem Hammer toe of right foot M20.41 Activ e 710272603 Problem Hematuria, unspecified type R31.9 Ac tive 10279204 Problem Fibromyalgia M79.7 Active 6666185 7 Problem Bladder spasm N32.89 Active 160076 006 Problem Acute left-sided low back pain with left-sided sciatica M54.42 Active 211114635 Problem Post menopausal syndrome N95.1 Activ e 531436309 Problem Hyperlipidemia, unspecified hyperlipidemia type E7 8.5 Active 26393147 Problem Sciatica of right side M54.31 Active 88463709 Problem Other chronic pain G89.29 Active 8 3705476 Problem Gastritis without bleeding, unspecified chronicity, unspecified gastritis type K29.70 Active 569481692 Problem Sciatica of left side M54.32 Active 12878679 Problem Plantar wart of right foot B07.0 Act mitchell [id number] Problem Slow transit constipation K59.01 Acti ve 41744652 Problem Tobacco use disorder F17.200 Active 711913580 ALLERGIES No Information ENCOUNTERS Encounter Location Date Diagnosis [facility] [address] [facility] [id number] [address] [place] [phone] Feb, [place] [address] [facility] [id number] [place] [phone] Feb, [place] [address] [place] [id number] [address] [place] [address] Feb, [place] [address] [place] [id number] [address] [place] [address] Jan, [place] [address] [facility] [id number] [address] [place] [address] Jan, Sciatica of right side M54.3 1 ; Low back pain M54.5 and Major depressive disorder, recurrent episode, moderate F33.1 [place] [address] [place] [id number] [address] [place] [address] Jan, Bipolar 1 disorder, mixed F3 1.60 [place] [address] [place] [id number] [address] [place] [address] Dec, Normal pelvic exam Z01.419 [place] [address] [place] [id number] [address] [place] [address] Dec, Bipolar 1 disorder, mixed F3 1.60 [place] [address] [place] [id number] [address] [place] [address] Nov, Bipolar 1 disorder, mixed F3 1.60 [place] [address] [place] [id number] [address] [place] [address] Nov, Bipolar 1 disorder, mixed F3 1.60 ; Generalized anxiety disorder F41.1 ; Tobacco use disorder F17.200 and 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 [facility] [address] [facility] [id number] [address] [place] [id number] Nov, [facility] [address] [facility] [id number] [address] [place] [address] Nov, Bipolar 1 disorder, mixed F3 1.60 [facility] [address] [facility] [id number] [address] [place] [address] October, Bipolar 1 disorder, mixed F3 1.60 [facility] [address] [facility] [id number] [address] [place] [id number] October, Bipolar 1 disorder, mixed F3 1.60 [place] [address] [facility] [id number] [address] [place] [phone] October, [facility] [address] [facility] [id number] [address] [place] [address] October, Bipolar 1 disorder, mixed F3 1.60 ; Generalized anxiety disorder F41.1 and Tobacco use disorder F17.200 [place] [address] [place] [id number] [address] [place] [address] Sep, [facility] [address] [place] [id number] [address] [place] [address] Sep, [facility] Z00.00 ; Major depressive disorder, recurrent episode, moderate F33.1 ; Allergic rhinitis J30.9 ; Bipolar 1 disorder, mixed F31.60 ; Fibromyalgia M79.7 ; Hyperlipidemia, unspecified hyperlipidemia type E78.5 ; Hormone replacement therapy Z79.890 ; Encounter for screening for lung cancer Z12.2 and Tobacco use disorder F17.200 [facility] [address] [facility] [id number] [address] [place] [address] Sep, Bipolar 1 disorder, mixed F3 1.60 [facility] [address] [facility] [id number] [address] [place] [address] Sep, Other chronic pain G89.29 ; Hyperlipidemia, unspecified hyperlipidemia type E78.5 ; Breast cancer screening Z12.31 and Post menopausal syndrome N95.1 [place] [address] [place] [id number] [address] [place] [address] 16 Sep, 2018 Bipolar 1 disorder, mixed F3 1.60 [place] [address] [address] Sep, Bipolar 1 disorder, mixed F3 1.60 ; Generalized anxiety disorder F41.1 and Tobacco use disorder F17.200 [place] [address] [address] Sep, Gastritis without bleeding, unspecified chronicity, unspecified gastritis type K29.70 [place] [address] [address] Sep, Exercise counseling Z71.82 [place] [address] [address] Aug, Exercise counseling Z71.82 [place] [address] [address] Aug, Bipolar 1 disorder, mixed F3 1.60 [place] [address] [place] [id number] [address] [place] [address] Aug, Exercise counseling Z71.82 [place] [address] [place] [id number] [address] [place] [address] Aug, Bipolar 1 disorder, mixed F3 1.60 [place] [address] [place] [id number] [address] [place] [address] 18 Aug, 2018 Gastritis without bleeding, unspecified chronicity, unspecified gastritis type K29.70 ; Tobacco abuse Z72.0 ; Generalized anxiety disorder F41.1 and Weight gain R63.5 [place] [address] [place] [id number] [address] [place] [address] 14 Aug, 2018 Bipolar 1 disorder, mixed F3 1.60 ; Generalized anxiety disorder F41.1 and Tobacco use disorder F17.200 [facility] [address] [id number] [address] [place] [address] Jul, Bipolar 1 disorder, mixed F3 1.60 [facility] [address] [id number] [address] [place] [address] Jul, [facility] [address] [id number] [address] [place] [address] Jul, Bipolar 1 disorder, mixed F3 1.60 [facility] [address] [id number] [address] [place] [address] Jul, Allergic rhinitis J30.9 ; Ma darion depressive disorder, recurrent episode, moderate F33.1 and Tobacco 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 [facility] [address] [facility] [id number] [address] [place] [address] Jun, [facility] [address] [id number] [address] [place] [address] Jun, [facility] [address] [id number] [address] [place] [address] Jun, Bipolar 1 disorder, mixed F3 1.60 [facility] [address] [facility] [id number] [address] [place] [address] Jun, Bipolar 1 disorder, mixed F3 1.60 [facility] [address] [id number] [address] [place] [address] Jun, Bipolar 1 disorder, mixed F3 1.60 [facility] [address] [id number] [address] [place] [address] Jun, Generalized anxiety disorder F41.1 ; Tobacco abuse Z72.0 and Major depressive disorder, recurrent episode, moderate F33.1 [facility] [address] [id number] [address] [place] [address] May, Bipolar 1 disorder, mixed F3 1.60 [facility] [address] [facility] [id number] [address] [place] [address] May, Bipolar 1 disorder, mixed F3 1.60 and Generalized anxiety disorder F41.1 [facility] [address] [facility] [id number] [address] [place] [address] May, Bipolar 1 disorder, mixed F3 1.60 [facility] [address] [place] [id number] [address] [place] [address] May, Allergic rhinitis J30.9 [facility] [address] [place] [id number] [address] [place] [address] May, Bipolar 1 disorder, mixed F3 1.60 [facility] [address] [place] [id number] [address] [place] [address] May, [facility] [address] [facility] [id number] [address] [place] [address] Apr, Allergic rhinitis J30.9 ; Dy sfunction of both eustachian tubes H69.83 ; History of bladder surgery Z98.890 and Cervicalgia M54.2 [facility] [address] [place] [id number] [address] [place] [address] Mar, Bipolar 1 disorder, mixed F3 1.60 [facility] [address] [place] [id number] [address] [place] [address] Mar, [facility] [address] [facility] [id number] [address] [place] [address] Mar, Slow transit constipation K5 9.01 ; Encounter for immunization Z23 and Generalized anxiety disorder F41.1 [facility] [address] [facility] [id number] [address] [place] [address] Feb, Bipolar 1 disorder, mixed F3 1.60 [facility] [address] [facility] [id number] [address] [place] [address] Feb, Allergic rhinitis J30.9 [facility] [address] [facility] [id number] [address] [place] [address] Feb, Bipolar 1 disorder, mixed F3 1.60 [facility] [address] [facility] [id number] [address] [place] [phone] 20 Feb, 2018 Bipolar 1 disorder, mixed F3 1.60 and Generalized anxiety disorder F41.1 [facility] [address] [facility] [id number] [address] [place] [address] 13 Feb, 2018 Bipolar 1 disorder, mixed F3 1.60 [facility] [address] [facility] [id number] [address] [place] [address] 11 Feb, 2018 Allergic rhinitis J30.9 [facility] [address] [facility] [id number] [address] [place] [phone] 05 Feb, 2018 [facility] [address] [facility] [id number] [address] [place] [phone] Jan, Bipolar 1 disorder, mixed F3 1.60 [facility] [address] [facility] [id number] [address] [place] [phone] Jan, Low back pain M54.5 ; Hyperl ipidemia, unspecified hyperlipidemia type E78.5 and Bipolar 1 disorder, mixed F31.60 [facility] [address] [facility] [id number] [address] [place] [address] Jan, Bipolar 1 disorder, mixed F3 1.60 [facility] [address] [facility] [id number] [address] [place] [address] Jan, Bipolar 1 disorder, mixed F3 1.60 [facility] [address] [facility] [id number] [address] [place] [address] Jan, Bipolar 1 disorder, mixed F3 1.60 [facility] [address] [facility] [id number] [address] [place] [address] Jan, Bipolar 1 disorder, mixed F3 1.60 [facility] [address] [facility] [id number] [address] [place] [address] Dec, Bipolar 1 disorder, mixed F3 1.60 ; Generalized anxiety disorder F41.1 and 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 [facility] [address] [facility] [id number] [address] [place] [phone] Dec, Other 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 (current) dr bin feliz Z79.899 [facility] [address] [facility] [id number] [address] [place] [address] Dec, Bipolar 1 disorder, mixed F3 1.60 [facility] [address] [facility] [id number] [address] [place] [address] Dec, Bipolar 1 disorder, mixed F3 1.60 [facility] [address] [facility] [id number] [address] [place] [address] Nov, Bipolar 1 disorder, mixed F3 1.60 [facility] [address] [facility] [id number] [address] [place] [address] Nov, Bipolar 1 disorder, mixed F3 1.60 [place] [address] [facility] [id number] [address] [place] [address] Nov, Bipolar 1 disorder, mixed F3 1.60 [facility] [address] [facility] [id number] [address] [place] [address] Nov, Allergic rhinitis J30.9 [facility] [address] [facility] [id number] [address] [place] [address] Nov, Allergic rhinitis J30.9 [facility] [address] [facility] [id number] [address] [place] [phone] Nov, [facility] [address] [facility] [id number] [address] [place] [address] Nov, Bipolar 1 disorder, mixed F3 1.60 [facility] [address] [facility] [id number] [address] [place] [address] Nov, Fibromyalgia M79.7 and Aller gic rhinitis J30.9 [facility] [address] [facility] [id number] [address] [place] [address] October, Bipolar 1 disorder, mixed F3 1.60 [facility] [address] [facility] [id number] [address] [place] [address] October, Acute nasopharyngitis J00 [facility] [address] [facility] [id number] [address] [place] [address] October, Bitten or stung by nonvenomo us insect and other nonvenomous arthropods, initial encounter W57.XXXA and Insect bite (nonvenomous) of abdominal wall, initial encounter S30.861A [facility] [address] [facility] [id number] [address] [place] [address] October, Insect bite (nonvenomous) of abdominal wall, initial encounter S30.861A ; Bitten or stung by nonvenomous insect and other nonvenomous arthropods, initial encounter W57.XXXA ; Allergic rhinitis J30.9 and Low back pain M54.5 [facility] [address] [facility] [id number] [address] [place] [address] October, Bipolar 1 disorder, mixed F3 1.60 [facility] [address] [facility] [id number] [address] [place] [address] October, [facility] [address] [facility] [id number] [address] [place] [address] October, [facility] [address] [place] [id number] [address] [place] [address] October, Bipolar 1 disorder, mixed F3 1.60 [facility] [address] [facility] [id number] [address] [place] [address] Sep, Bipolar 1 disorder, mixed F3 1.60 [facility] [address] [facility] [id number] [address] [place] [address] Sep, Other chronic pain G89.29 [facility] [address] [facility] [id number] [address] [place] [id number] Sep, [facility] [address] [facility] [id number] [address] [place] [address] Sep, Bipolar 1 disorder, mixed F3 1.60 [facility] [address] [facility] [id number] [address] [place] [address] Sep, Allergic rhinitis J30.9 and Sciatica of left side M54.32 [facility] [address] [facility] [id number] [address] [place] [address] Sep, Bipolar 1 disorder, mixed F3 1.60 [facility] [address] [facility] [id number] [address] [place] [phone] Sep, Bipolar 1 disorder, mixed F3 1.60 and Generalized anxiety disorder F41.1 [facility] [address] [id number] [address] [place] [address] Aug, [facility] [address] [facility] [id number] [address] [place] [address] Aug, Bipolar 1 disorder, mixed F3 1.60 [facility] [address] [facility] [id number] [address] [place] [address] Aug, Bipolar 1 disorder, mixed F3 1.60 [facility] [address] [facility] [id number] [address] [place] [address] Aug, [facility] [address] [facility] [id number] [address] [place] [address] Aug, Generalized anxiety disorder F41.1 [facility] [address] [facility] [id number] [address] [place] [address] Aug, Bipolar 1 disorder, mixed F3 1.60 [facility] [address] [facility] [id number] [address] [place] [address] Aug, Plantar wart of right foot B 07.0 [facility] [address] [facility] [id number] [address] [place] [address] Aug, Bipolar 1 disorder, mixed F3 1.60 [facility] [address] [facility] [id number] [address] [place] [address] Jul, Bipolar 1 disorder, mixed F3 1.60 [facility] [address] [facility] [id number] [address] [place] [phone] Jul, [facility] [address] [facility] [id number] [address] [place] [address] Jul, Bipolar 1 disorder, mixed F3 1.60 [facility] [address] [facility] [id number] [address] [place] [phone] 09 Jul, 2017 Generalized anxiety disorder F41.1 [facility] [address] [place] [id number] [address] [place] [address] Jul, Bipolar 1 disorder, mixed F3 1.60 [facility] [address] [place] [id number] [address] [place] [address] Jul, Acute left-sided low back pa in with left-sided sciatica M54.42 [facility] [address] [place] [id number] [address] [place] [address] Jul, Coccydynia M53.3 [facility] [address] [place] [id number] [address] [place] [address] Jun, Bipolar 1 disorder, mixed F3 1.60 [facility] [address] [place] [id number] [address] [place] [address] Jun, Acute nasopharyngitis J00 [facility] [address] [place] [id number] [address] [place] [phone] Jun, Bipolar 1 disorder, mixed F3 1.60 [facility] [address] [facility] [id number] [address] [place] [phone] Jun, Fibromyalgia M79.7 [facility] [address] [facility] [id number] [address] [place] [address] Jun, Bipolar 1 disorder, mixed F3 1.60 [facility] [address] [place] [id number] [address] [place] [phone] Jun, Fibromyalgia M79.7 and Bipol ar 1 disorder, mixed F31.60 [facility] [address] [place] [id number] [address] [place] [phone] May, Bipolar 1 disorder, mixed F3 1.60 ; Generalized anxiety disorder F41.1 and Other group home (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 Z79.899 [place] [address] [address] May, Bipolar 1 disorder, mixed F3 1.60 [facility] [address] [address] 14 May, 2017 Cough R05 and Body aches R52 [facility] [place] [address] [phone] 10 May, 2017 Bladder spasm N32.89 [address] Acu te cystitis without hematuria N30.00 [place] [address] [address] 07 May, 2017 Bipolar 1 disorder, mixed F3 1.60 [place] [address] [id number] 30 Apr, 2017 [place] [address] [address] Apr, Major depressive disorder, r ecurrent episode, moderate F33.1 and Encounter for immunization Z23 [place] [address] [id number] Apr, Bipolar 1 disorder, mixed F3 1.60 [place] [address] [address] Apr, Bipolar 1 disorder, mixed F3 1.60 [place] [address] [address] 16 Apr, 2017 Bipolar 1 disorder, mixed F3 1.60 [place] [address] [address] Apr, Yeast vaginitis B37.3 [place] [address] [address] 09 Apr, 2017 Bipolar 1 disorder, mixed F3 1.60 [facility] [address] [facility] [id number] [address] [place] [id number] 07 Apr, [address] for immunization Z23 [facility] [address] [facility] [id number] [address] [place], [place] [id number] Apr, Bipolar 1 disorder, mixed F3 1.60 [facility] [address] [place] [id number] [address] [place], [place] [id number] Mar, Bipolar 1 disorder, mixed F3 1.60 [facility] [address] [place] [id number] [address] [place] [id number] Mar, Bipolar 1 disorder, mixed F3 1.60 [facility] [address] [place] [id number] [address] [place] [id number] Mar, Imbalance R26.89 [address] En[address] er for immunization Z23 [facility] [address] [place] [id number] [address] [place] [id number] Mar, Generalized anxiety disorder F41.1 [facility] [address] [place] [id number] [address] [place] [phone] Mar, Bipolar 1 disorder, mixed F3 1.60 [facility] [address] [place] [id number] [address] [place] [id number] Mar, Generalized anxiety disorder F41.1 [facility] [address] [place] [id number] [address] [place], [place] [address] Mar, Bipolar 1 disorder, mixed F3 1.60 [facility] [address] [place] [id number] [address] [place] [address] Mar, Bipolar 1 disorder, mixed F3 1.60 [facility] [address] [id number] [address] [place] [address] Feb, Bipolar 1 disorder, mixed F3 1.60 [facility] [address] [id number] [address] [place] [address] Feb, Bipolar 1 disorder, mixed F3 1.60 and Generalized anxiety disorder F41.1 [facility] [address] [facility] [id number] [address] [place] [address] Feb, Gastritis without bleeding, unspecified chronicity, unspecified gastritis type K29.70 ; Hammer toe of right foot M20.41 and Other viral warts B07.8 [place] [address] [address] [facility] [id number] [address] [place] [address] Feb, Bipolar 1 disorder, mixed F3 1.60 [place] [address] [facility] [id number] [address] [place] [address] 13 Feb, 2017 Bipolar 1 disorder, mixed F3 1.60 [place] [address] [facility] [id number] [address] [place] [address] 05 Feb, 2017 Bipolar 1 disorder, mixed F3 1.60 [place] [address] [facility] [id number] [address] [place] [address] Jan, Encounter for screening mamm ogram for breast cancer Z12.31 ; Other viral warts B07.8 and Allergic rhinitis J30.9 [place] [address] [facility] [id number] [address] [place] [address] Jan, Bipolar 1 disorder, mixed F3 1.60 [place] [address] [facility] [id number] [address] [place] [address] Jan, Bipolar 1 disorder, mixed F3 1.60 [place] [address] [facility] [id number] [address] [place] [address] Jan, [place] [address] [facility] [id number] [address] [place] [address] Jan, Bipolar 1 disorder, mixed F3 1.60 [place] [address] [facility] [id number] [address] [place] [address] Jan, Bipolar 1 disorder, mixed F3 1.60 [place] [address] [facility] [id number] [address] [place] [address] Jan, Allergic rhinitis J30.9 ; He maturia R31.9 and Colon cancer screening Z12.11 [facility] [address] [facility] [id number] [address] [place] [address] Dec, Bipolar 1 disorder, mixed F3 1.60 [facility] [address] [facility] [id number] [address] [place] [address] Dec, Bipolar 1 disorder, mixed F3 1.60 ; Generalized anxiety disorder F41.1 and Other group home (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 Z79.899 [facility] [address] [facility] [id number] [address] [place] [address] Dec, Bipolar 1 disorder, mixed F3 1.60 [facility] [address] [facility] [id number] [address] [place] [address] Dec, Bipolar 1 disorder, mixed F3 1.60 [facility] [address] [id number] [address] [place] [address] Dec, Bipolar 1 disorder, mixed F3 1.60 [facility] [address] [facility] [id number] [address] [place] [address] Dec, Low back pain M54.5 and Recu rrent urinary tract infection N39.0 [facility] [address] [facility] [id number] [address] [place] [address] Nov, Bipolar 1 disorder, mixed F3 1.60 [facility] [address] [facility] [id number] [address] [place] [address] Nov, Bipolar 1 disorder, mixed F3 1.60 [facility] [address] [facility] [id number] [address] [place] [address] Nov, Bipolar 1 disorder, mixed F3 1.60 [facility] [address] [facility] [id number] [address] [place] [address] Nov, Bipolar 1 disorder, mixed F3 1.60 [facility] [address] [facility] [id number] [address] [place] [address] Nov, [facility] [address] [address] 08 Nov, 2016 Anesthesia of skin R20.0 ; F requent UTI N39.0 ; Tobacco abuse Z72.0 and Colon cancer screening Z12.11 [place] [address] [address] Nov, Bipolar 1 disorder, mixed F3 1.60 [place] [address] [place] [address] October, Bipolar 1 disorder, mixed F3 1.60 [place] [address] [address] October, Bipolar 1 disorder, mixed F3 1.60 [place] [address] [address] October, Bipolar 1 disorder, mixed F3 1.60 [place] [address] [address] October, Bipolar 1 disorder, mixed F3 1.60 [place] [address] [address] October, Bipolar 1 disorder, mixed F3 1.60 [place] [address] [address] October, Cervicalgia M54.2 and Bipola r 1 disorder, mixed F31.60 [place] [address] [address] October, Hypertension I10 ; Hyperlipi demia, unspecified hyperlipidemia type E78.5 and Family history of thyroid disease Z83.49 [place] [address] [address] October, [place] [address] [address] October, Hypertension I10 ; Hyperlipi demia, unspecified hyperlipidemia type E78.5 and Family history of thyroid problem Z83.49 [place] [address] [facility] [id number] [address] [place] [address] October, Bipolar 1 disorder, mixed F3 1.60 [facility] [address] [facility] [id number] [address] [place] [address] Sep, Bipolar 1 disorder, mixed F3 1.60 [facility] [address] [facility] [id number] [address] [place] [address] Sep, Bipolar 1 disorder, mixed F3 1.60 [facility] [address] [facility] [id number] [address] [place] [address] Sep, Bipolar 1 disorder, mixed F3 1.60 [place] [address] [place] [id number] [address] [place] [address] Sep, History of colon polyps Z86. 010 and Hematochezia K92.1 [place] [address] [place] [id number] [address] [place] [address] Sep, Major depressive disorder, r ecurrent episode, moderate F33.1 [facility] [address] [facility] [id number] [address] [place] [address] Sep, Bipolar 1 disorder, mixed F3 1.60 [facility] [address] [facility] [id number] [address] [place] [address] Aug, Hot flashes due to menopause N95.1 [facility] [address] [facility] [id number] [address] [place] [address] Aug, Bipolar 1 disorder, mixed F3 1.60 [facility] [address] [facility] [id number] [address] [place] [address] Aug, [facility] [address] [facility] [id number] [address] [place] [address] Aug, Bipolar 1 disorder, mixed F3 1.60 [facility] [address] [facility] [id number] [address] [place] [address] Aug, Bipolar 1 disorder, mixed F3 1.60 [place] [address] [address] Aug, Hot flashes due to menopause N95.1 ; Cervicalgia M54.2 and Ataxia R27.0 [place] [address] [address] Jul, Bipolar 1 disorder, mixed F3 1.60 [place] [address] [place] [address] Jul, Bipolar 1 disorder, mixed F3 1.60 [place] [address] Jul, Bipolar 1 disorder, mixed F3 1.60 [place] [address] Jul, Bipolar 1 disorder, mixed F3 1.60 [place] [address] [address] Jul, Bipolar 1 disorder, mixed F3 1.60 [place] [address] [address] Jul, Cervicalgia M54.2 ; Tremor R 25.1 ; Hearing abnormally acute, unspecified laterality H93.239 ; Alopecia L65.9 ; Encounter for immunization Z23 and Family history of thyroid disease Z83.49 [place] [address] [address] Jul, Bipolar 1 disorder, mixed F3 1.60 [place] [address] [address] Jun, [place] [address] [place] [address] Jun, Hearing disorder, unspecifie d laterality H93.299 [place] [address] [address] Jun, Bipolar 1 disorder, mixed F3 1.60 [place] [address] [id number] [address] [place] [address] Jun, Bipolar 1 disorder, mixed F3 1.60 [facility] [address] [id number] [address] [place] [address] Jun, Allergic rhinitis J30.9 [facility] [address] [facility] [id number] [address] [place] [address] Jun, Bipolar 1 disorder, mixed F3 1.60 [facility] [address] [id number] [address] [place] [address] Jun, Bipolar 1 disorder, mixed F3 1.60 [facility] [address] [id number] [address] [place] [address], [place] [address] Jun, Allergic rhinitis J30.9 [facility] [address] [facility] [id number] [address] [place] [address] Jun, Allergic rhinitis J30.9 [facility] [address] [facility] [id number] [address] [place] [address] Jun, Bipolar 1 disorder, mixed F3 1.60 [facility] [address] [facility] [id number] [address] [place] [address] May, Bipolar 1 disorder, mixed F3 1.60 [facility] [address] [facility] [id number] [address] [place] [address] May, Bipolar 1 disorder, mixed F3 1.60 [facility] [address] [facility] [id number] [address] [place] [address] May, [facility] [address] [facility] [id number] [address] [place] [address] May, Bipolar 1 disorder, mixed F3 1.60 [facility] [address] [facility] [id number] [address] [place] [address] May, Bipolar 1 disorder, mixed F3 1.60 [facility] [address] [facility] [id number] [address] [place] [address] May, [facility] [address] [facility] [id number] [address] [place] [address] May, [facility] [address] [facility] [id number] [address] [place] [address] May, [facility] [address] [facility] [id number] [address] [place] [address] May, Abdominal pain, unspecified location R10.9 [facility] [address] [id number] [address] [place] [address] May, [facility] [address] [place] [id number] [place] [address] Apr, Hematuria R31.9 ; Ataxia R27 .0 and Hearing loss, unspecified laterality H91.90 [facility] [address] [id number] [place] [address] Apr, Bipolar 1 disorder, mixed F3 1.60 [facility] [address] [id number] [address] [place] [address] Apr, Acute effusion of both middl e ears H65.193 [facility] [address] [address] Apr, Hematuria R31.9 and Pyelonep hritis N12 [facility] [address] [place] [id number] [address] [place] [address] Apr, [facility] [address] [place] [id number] [address] [place] [address] Mar, Bipolar 1 disorder, mixed F3 1.60 [facility] [address] [place] [id number] [address] [place] [address] Mar, [facility] [address] [place] [id number] [place] [address] Mar, Bipolar 1 disorder, mixed F3 1.60 [facility] [address] [place] [id number] [address] [place] [address] Mar, Bipolar 1 disorder, mixed F3 1.60 [place] [address] [place] [id number] [place] [address] Mar, Encounter for immunization Z 23 and Gastritis without bleeding, unspecified chronicity, unspecified gastritis type K29.70 [place] [address] [place] [id number] [place] [address] Mar, Bipolar 1 disorder, mixed F3 1.60 and Grief F43.20 [place] [address] [place] [id number] [place] [address] Mar, Gastritis without bleeding, unspecified chronicity, unspecified gastritis type K29.70 [place] [address] [address] Mar, Bipolar 1 disorder, mixed F3 1.60 [place] [address] [address] Mar, Gastritis without bleeding, unspecified chronicity, unspecified gastritis type K29.70 [place] [address] [place] [id number] [address] [place] [address] Mar, [place] [address] [address] Feb, Bipolar 1 disorder, mixed F3 1.60 [place] [address] [place] [id number] [place] [address] Feb, Bipolar 1 disorder, mixed F3 1.60 and Grief F43.20 [place] [address] [place] [id number] [place] [address] Feb, Gastritis without bleeding, unspecified chronicity, unspecified gastritis type K29.70 [place] [address] [place] [id number] [place] [address] 14 Feb, 2016 Bipolar 1 disorder, mixed F3 1.60 [facility] [address] [place] [id number] [place] [address] Feb, Gastroesophageal reflux dise ase, esophagitis presence not specified K21.9 [facility] [address] [place] [id number] [place] [address] Jan, Bipolar 1 disorder, mixed F3 1.60 [facility] [address] [place] [id number] [place] [id number] Jan, Bipolar 1 disorder, mixed F3 1.60 and Unsteady gait R26.81 [place] [address] [place] [id number] [place] [address] Jan, Bipolar 1 disorder, mixed F3 1.60 [place] [address] Jan, Bipolar 1 disorder, mixed F3 1.60 and Other group home (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 Z79.899 [place] [address] [place] [address] Jan, Bipolar 1 disorder, mixed F3 1.60 [place] [address] [place] [id number] [place] [address] Jan, Bipolar 1 disorder, mixed F3 1.60 [place] [address] [place] [id number] [address] [place] [address] Jan, Bipolar 1 disorder, mixed F3 1.60 ; Grief F43.20 and 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 [place] [id number] [place] [address] Jan, Bipolar 1 disorder, mixed F3 1.60 [place] [address] [place] [id number] [place] [address] Dec, [place] [address] [place] [address] Dec, Bipolar 1 disorder, mixed F3 1.60 ; Vitamin D deficiency, unspecified E55.9 ; H/O allergic rhinitis Z87.09 ; Other chronic pain G89.29 and Dorsalgia, unspecified M54.9 [facility] [address] [id number] [address] [place] [address] Dec, [facility] [address] [facility] [id number] [address] [place] [address] Dec, Bipolar 1 disorder, mixed F3 1.60 [facility] [address] [facility] [id number] [address] [place] [address] Dec, Major depressive disorder, r ecurrent episode, moderate F33.1 [place] [address] [facility] [id number] [address] [place] [address] Dec, Major depressive disorder, r ecurrent episode, moderate F33.1 [place] [address] [facility] [id number] [address] [place] [address] Nov, [place] [address] [facility] [id number] [address] [place] [address] Nov, Bipolar 1 disorder, mixed F3 1.60 [place] [address] [facility] [id number] [address] [place] [address] Nov, Major depressive disorder, r ecurrent episode, moderate F33.1 [place] [address] [facility] [id number] [address] [place] [address] Nov, Cervicalgia M54.2 ; Arthralg ia of hip, unspecified laterality M25.559 ; Allergic rhinitis J30.9 and Hormone replacement therapy Z79.890 [facility] [address] [facility] [id number] [address] [place] [address] Nov, Other seasonal allergic rhin itis J30.2 [facility] [address] [id number] [address] [place] [address] October, Major depressive disorder, r ecurrent episode, moderate F33.1 [facility] [address] [facility] [id number] [address] [place] [address] October, Major depressive disorder, r ecurrent episode, moderate F33.1 and Arthralgia of hip, unspecified laterality M25.559 [place] [address] [facility] [id number] [address] [place] [address] October, Grief F43.20 ; Hypertension I10 ; Hyperlipidemia, unspecified hyperlipidemia type E78.5 ; Other chronic pain G89.29 and Allergic rhinitis, unspecified allergic rhinitis type J30.9 [place] [address] [facility] [id number] [address] [place] [address] October, Major depressive disorder, r ecurrent episode, moderate F33.1 [place] [address] [facility] [id number] [address] [place] [address] Sep, Major depressive disorder, r ecurrent episode, moderate F33.1 [place] [address] [place] [id number] [place] [address] Sep, [place] [address] [place] [id number] [place] [address] Sep, Major depressive disorder, r ecurrent episode, moderate F33.1 [place] [address] [place] [id number] [place] [address] Sep, Grief F43.20 [place] [address] [place] [id number] [place] [address] Aug, Major depressive disorder, r ecurrent episode, moderate F33.1 [place] [address] [place] [id number] [place] [address] Aug, Bipolar 1 disorder, mixed F3 1.60 [place] [address] [place] [id number] [place] [address] Aug, Allergic rhinitis J30.9 ; Ce rvicalgia M54.2 and Low back pain M54.5 [place] [address] [place] [id number] [place] [address] Aug, Major depressive disorder, r ecurrent episode, moderate F33.1 [facility] [address] [place] [id number] [place] [address] Aug, Sinusitis J32.9 and Tobacco 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 [facility] [address] [facility] [id number] [address] [place] [address] Aug, [facility] [address] [place] [id number] [place] [address] Aug, Depressive disorder, not els ewhere classified F32.9 ; Hormone replacement therapy Z79.[address] scan, head R93.0 [facility] [address] [facility] [id number] [address] [place] [address] Aug, Major depressive disorder, r ecurrent episode, moderate F33.1 [facility] [address] [place] [id number] [place] [address] Jul, Major depressive disorder, r ecurrent episode, moderate F33.1 [place] [address] [place] [id number] [place] [address] Jul, Abdominal pain R10.9 and Hyp ertension I10 [facility] [address] [facility] [id number] [address] [place] [phone] Jul, [facility] [address] [facility] [id number] [address] [place] [phone] Jul, Major depressive disorder, r ecurrent episode, moderate F33.1 [facility] [address] [place] [id number] [address] [place] [phone] Jul, [facility] [address] [facility] [id number] [address] [place] [phone] Jul, [facility] [address] [facility] [id number] [address] [place] [phone] Jun, [facility] [address] [place] [id number] [address] [place] [phone] Jun, Depressive disorder, not els ewhere classified F32.9 [facility] [address] [place] [id number] [address] [place] [phone] Jun, [facility] [address] [id number] [address] [place] [phone] Jun, [facility] [address] [id number] [address] [place] [phone] Jun, Arthralgia of hip, unspecifi ed laterality M25.559 ; Bruising, spontaneous R23.3 and Night sweats R61 [facility] [address] [id number] [address] [place] [phone] Jun, [facility] [address] [id number] [address] [place] [phone] Jun, [facility] [address] [id number] [address] [place] [phone] May, [facility] [address] [place] [id number] [address] [place] [phone] May, Myalgia M79.1 and Screening, lipid Z13.220 [facility] [address] [facility] [id number] [address] [place] [phone] Apr, Status post cervical spinal fusion Z98.1 ; Fibromyalgia M79.7 and Unsteady gait R26.81 [facility] [address] [id number] [address] [place] [phone] Nov, [facility] [address] [id number] [address] [place] [phone] Nov, [facility] [address] [id number] [address] [place] [phone] October, [facility] [address] [id number] [address] [place] [phone] October, [facility] [address] [facility] [id number] [address] [place] [phone] October, [facility] [address] [facility] [id number] [address] [place] [phone] October, [facility] [address] [id number] [address] [place] [phone] October, [facility] [address] [id number] [address] [place] [phone] October, Dysuria 788.1 ; Nausea 787.0 2 and Urinary tract infection 599.0 [facility] [address] [id number] [address] [place] [address], [place] [phone] Sep, [facility] [address] [id number] [address] [place] [phone] Sep, [facility] [address] [address] [id number] [address] [place] [address], [place] [address] Aug, [facility] [address] [id number] [address] [place] [address] Aug, [facility] [address] [id number] [address] [place] [address] Aug, [facility] [address] [id number] [address] [place] [address] Aug, [facility] [address] [id number] [address] [place] [address] Aug, [facility] [address] [id number] [address] [place] [address] Aug, [facility] [address] [id number] [address] [place] [address] Aug, [facility] [address] [id number] [address] [place] [address] Aug, [facility] [address] [id number] [address] [place] [address] Aug, [facility] [address] [id number] [address] [place] [address] Aug, [facility] [address] [id number] [address] [place] [address] Aug, [facility] [address] [id number] [address] [place] [address], [place] [address] 13 Aug, 2014 [facility] [address] [id number] [address] [place] [address], [place] [address] 13 Aug, 2014 [facility] [address] [id number] [address] [place] [address], [place] [address] 11 Aug, 2014 [facility] [address] [id number] [address] [place] [address], [place] [address] 11 Aug, 2014 [facility] [address] [id number] [address] [place] [address], [place] [address] 06 Aug, 2014 [facility] [address] [id number] [address] [place] [address], [place] [address] 06 Aug, 2014 [facility] [address] [id number] [address] [place] [address], [place] [address] 05 Aug, 2014 [facility] [address] [id number] [address] [place] [address], [place] [address] 05 Aug, 2014 [facility] [address] [id number] [address] [place] [address], [place] [address] 04 Aug, 2014 [facility] [address] [id number] [address] [place] [address], [place] [address] Aug, [facility] [address] [id number] [address] [place] [address], [place] [address] Aug, [facility] [address] [id number] [address] [place] [address], [place] [address] Jul, 2014 [facility] [address] [id number] [address] [place] [address], [place] [address] Jul, [facility] [address] [id number] [address] [place] [address], [place] [address] Jul, [facility] [address] [id number] [address] [place] [address], [place] [address] Jul, 2014 [facility] [address] [id number] [address] [place] [address], [place] [address] Jul, 2014 [facility] [address] [id number] [address] [place] [address], [place] [address] Jul, 2014 [facility] [address] [id number] [address] [place] [address], [place] [address] Jul, 2014 [facility] [address] [id number] [address] [place] [address], [place] [address] Jul, 2014 [facility] [address] [id number] [address] [place] [address], [place] [address] Jul, 2014 [facility] [address] [id number] [address] [place] [address], [place] [address] Jul, 2014 [facility] [address] [id number] [address] [place] [address], [place] [address] Jul, 2014 [facility] [address] [id number] [address] [place] [address], [place] [address] Jul, 2014 [facility] [address] [id number] [address] [place] [address], [place] [address] Jul, [facility] [address] [id number] [address] [place] [address], [place] [address] Jul, [facility] [address] [id number] [address] [place] [address], [place] [address] Jun, [facility] [address] [id number] [address] [place] [address], [place] [address] Jun, [facility] [address] [id number] [address] [place] [address] Jun, [facility] [address] [id number] [address] [place] [address] Jun, [facility] [address] [id number] [address] [place] [address] Jun, [facility] [address] [id number] [address] [place] [address] Jun, [facility] [address] [id number] [address] [place] [address], [place] [address] May, [facility] [address] [id number] [address] [place] [address], [place] [address] May, [facility] [address] [id number] [address] [place] [address], [place] [address] May, [facility] [address] [id number] [address] [place] [address], [place] [address] May, [facility] [address] [id number] [address] [place] [address], [place] [address] May, [facility] [address] [id number] [address] [place] [address], [place] [address] May, [facility] [address] [id number] [address] [place] [address], [place] [address] Apr, [facility] [address] [id number] [address] [place] [address], [place] [address] Apr, [facility] [address] [id number] [address] [place] [address], [place] [address] Apr, [facility] [address] [id number] [address] [place] [address], [place] [address] Apr, [facility] [address] [id number] [address] [place] [address], [place] [address] Apr, [facility] [address] [id number] [address] [place] [address], [place] [address] Apr, [facility] [address] [id number] [address] [place] [address], [place] [address] Mar, [facility] [address] [id number] [address] [place] [address], [place] [address] Mar, [facility] [address] [id number] [address] [place] [address], [place] [address] Mar, [facility] [address] [id number] [place] [address] Mar, [facility] [address] [id number] [address] [place] [address], [place] [address] Mar, 2013 [facility] [address] [id number] [address] [place] [address], [place] [address] Mar, [facility] [address] [id number] [address] [place] [address], [place] [address] Mar, 2013 [facility] [address] [id number] [address] [place] [address], [place] [address] Mar, 2013 [facility] [address] [id number] [address] [place] [address], [place] [address] Mar, [facility] [address] [id number] [address] [place] [address], [place] [address] Mar, 2013 [facility] [address] [id number] [address] [place] [address], [place] [address] Mar, [facility] [address] [id number] [address] [place] [address], [place] [address] Mar, [facility] [address] [id number] [address] [place] [address], [place] [address] 30 Feb, 2013 [facility] [address] [id number] [address] [place] [address], [place] [address] 29 Sep, 2013 [facility] [address] [id number] [address] [place] [address], [place] [address] 29 Sep, 2013 [facility] [address] [id number] [address] [place] [address] 23 Sep, 2013 [facility] [address] [id number] [address] [place] [address], [place] [address] 23 Sep, 2013 [facility] [address] [id number] [address] [place] [address], [place] [address] 08 Feb, 2013 [facility] [address] [id number] [address] [place] [address], [place] [address] 08 Feb, 2013 [facility] [address] [id number] [facility] [place] [address] Jan, [facility] [address] [id number] [facility] [place] [address] Jan, [facility] [address] [id number] [facility] [place] [address] Jan, [facility] [address] [id number] [address] [place] [address], [place] [address] Dec, [facility] [address] [id number] [address] [place] [address], [place] [address] Dec, [facility] [address] [id number] [address] [place] [address], [place] [address] Dec, [facility] [address] [id number] [address] [place] [address], [place] [address] Dec, [facility] [address] [id number] [address] [place] [address], [place] [address] Sep, [facility] [address] [id number] [address] [place] [address], [place] [address] Sep, [facility] [address] [id number] [address] [place] [address], [place] [address] Sep, [facility] [address] [id number] [address] [place] [address], [place] [address] Sep, [facility] [address] [id number] [address] [place] [address], [place] [address] Sep, [facility] [address] [id number] [address] [place] [address], [place] [address] Sep, [facility] [address] [id number] [address] [place] [address], [place] [address] Sep, [facility] [address] [id number] [address] [place] [address], [place] [address] Sep, [facility] [address] [id number] [address] [place] [address], [place] [address] Aug, [facility] [address] [id number] [address] [place] [address], [place] [address] Aug, [facility] [address] [id number] [address] [place] [address], [place] [address] May, [facility] [address] [id number] [address] [place] [address], [place] [address] May, [facility] [address] [id number] [address] [place] [address], [place] [address] Apr, [facility] [address] [id number] [address] [place] [address], [place] [address] Apr, [facility] [address] [id number] [address] [place] [address], [place] [address] Apr, [facility] [address] [id number] [address] [place] [address], [place] [address] Apr, [facility] [address] [id number] [address] [place] [address], [place] [address] Apr, [facility] [address] [id number] [address] [place] [address], [place] [address] Apr, [facility] [address] [id number] [address] [place] [address], [place] [address] May, [facility] [address] [id number] [address] [place] [address], [place] [address] 18 May, 2012 [facility] [address] [id number] [address] [place] [address], [place] [address] 15 May, 2012 [facility] [address] [id number] [address] [place] [address], [place] [address] 15 May, 2012 [facility] [address] [id number] [address] [place] [address], [place] [address] 13 May, 2012 [facility] [address] [id number] [address] [place] [address], [place] [address] 13 May, 2012 [facility] [address] [id number] [address] [place] [address] 13 Apr, 2012 [facility] [address] [id number] [address] [place] [address], [place] [address] 13 Apr, 2012 [facility] [address] [id number] [address] [place] [address] 08 Apr, 2012 [facility] [address] [id number] [address] [place] [address], [place] [address] Apr, [facility] [address] [id number] [address] [place] [address] 08 Apr, 2012 [facility] [address] [id number] [address] [place] [address], [place] [address] Apr, [facility] [address] [id number] [address] [place] [address], [place] [address] Apr, [facility] [address] [id number] [address] [place] [address], [place] [address] Apr, [facility] [address] [id number] [address] [place] [address], [place] [address] Apr, [facility] [address] [id number] [address] [place] [address] Apr, [facility] [address] [id number] [address] [place] [address] Mar, [facility] [address] [id number] [address] [place] [address] Mar, [facility] [address] [id number] [address] [place] [address] Mar, [facility] [address] [id number] [address] [place] [address] Mar, [facility] [address] [id number] [address] [place] [address], [place] [address] Mar, [facility] [address] [id number] [address] [place] [address] Mar, [facility] [address] [id number] [facility] [place] [address] Mar, [facility] [address] [id number] [address] [place] [address], [place] [address] Mar, [facility] [address] [id number] [address] [place] [address], [place] [address] Mar, [facility] [address] [id number] [address] [place] [address], [place] [address] 25 Feb, 2012 [facility] [address] [id number] [address] [place] [address], [place] [address] 16 Feb, 2012 [facility] [address] [id number] [address] [place] [address], [place] [address] Feb, [facility] [address] [id number] [address] [place] [address], [place] [address] Jan, [facility] [address] [id number] [address] [place] [address], [place] [address] Jan, [facility] [address] [id number] [address] [place] [address], [place] [address] Jan, [facility] [address] [id number] [address] [place] [address], [place] [address] Jan, [facility] [address] [id number] [address] [place] [address], [place] [address] Jan, [facility] [address] [id number] [address] [place] [address], [place] [address] Jan, [facility] [address] [id number] [address] [place] [address], [place] [address] 16 Jan, 2012 [facility] [address] [id number] [address] [place] [address], [place] [address] Jan, [facility] [address] [id number] [address] [place] [address], [place] [address] Jan, [facility] [address] [id number] [address] [place] [address], [place] [address] Jan, [facility] [address] [id number] [address] [place] [address], [place] [address] Dec, [facility] [address] [id number] [address] [place] [address], [place] [address] Dec, [facility] [address] [id number] [address] [place] [address], [place] [address] Dec, [facility] [address] [id number] [address] [place] [address], [place] [address] Dec, [facility] [address] [id number] [address] [place] [address], [place] [address] Nov, [facility] [address] [id number] [address] [place] [address], [place] [address] Nov, [facility] [address] [id number] [address] [place] [address], [place] [address] Nov, [facility] [address] [id number] [address] [place] [address], [place] [address] October, [facility] [address] [id number] [address] [place] [address], [place] [address] October, [facility] [address] [id number] [address] [place] [address], [place] [address] October, [facility] [address] [id number] [address] [place] [address], [place] [address] October, [facility] [address] [id number] [address] [place] [address], [place] [address] October, [facility] [address] [id number] [address] [place] [address], [place] [address] October, [facility] [address] [id number] [address] [place] [address], [place] [address] Aug, [facility] [address] [id number] [address] [place] [address], [place] [address] Mar, [facility] [address] [id number] [address] [place] [address] 16 Nov, 2010 [facility] [address] [facility] [id number] [address] [place] [address] May, [facility] [address] [facility] [id number] [address] [place] [address] May, [facility] [address] [facility] [id number] [address] [place] [address] Apr, [facility] [address] [facility] [id number] [address] [place] [address] Mar, [facility] [address] [facility] [id number] [address] [place] [id number] Mar, IMMUNIZATIONS No Known Immunizations SOCIAL HISTORY Never Assessed REASON FOR VISIT PLAN OF CARE VITAL SIGNS MEDICATIONS Unknown Medications RESULTS No Results PROCEDURES No Known procedures INSTRUCTIONS MEDICATIONS ADMINISTERED No Known Medications MEDICAL (GENERAL) HISTORY Type Description Date Medical History Severe spinal stenosis [facility] cervical spine CT and MRI done [...]
--- OUTSIDE RECORDS SUMMARY | 2019-06-19 05:07 | XMS REPORT ---
Author Author Sydnie HANCOCK [facility] Address [address] [place] [address] Care Team Providers Care Spa Technician Name Role Phone NAHOMY HANCOCK Unavailable PROBLEMS Type Condition ICD9-CM Code ZAH28-XL Code Onset Dates Condition S tatus SNOMED Code Problem Age-related osteoporosis without current pathological fracture M81.0 Active 13717860 Problem Sensorineural hearing loss (SNHL) of both ears H90 .3 Active 133300148 Problem Ab[address] CT scan, head R93.0 Active 138353701 Problem Arthralgia of hip, unspecified laterality M25.559 Active 77789493 Problem Bruising, spontaneous R23.3 Active 774150215 Problem Hypertension I10 Active 3176207 3 Problem Night sweats R61 Active 8088071 0 Problem Imbalance R26.89 Active 438027417 Problem Hammer toe of right foot M20.41 Activ e 000174388 Problem Hormone replacement therapy Z79.890 Ac tive 173519213 Problem Bipolar 1 disorder, mixed F31.60 Acti ve 98271250 Problem Gastritis without bleeding, unspecified chronicity, unspecified gastritis type K29.70 Active 207112994 Problem Ataxia R27.0 Active 68962054 Problem Hearing loss, unspecified laterality H91.90 Active 12587488 Problem History of colon polyps Z86.010 Active 601309253 Problem Allergic rhinitis J30.9 Active 61 320188 Problem Hematuria, unspecified type R31.9 Ac tive 51313436 Problem Generalized anxiety disorder F41.1 A ctive 60257854 Problem Major depressive disorder, recurrent episode, moderate F33.1 Active 397457879 Problem Fibromyalgia M79.7 Active 6543520 7 Problem Bladder spasm N32.89 Active 734033 006 Problem Tobacco use disorder F17.200 Active 316252524 Problem Other chronic pain G89.29 Active 8 1083490 Problem Post menopausal syndrome N95.1 Activ e 640765241 Problem Grief F43.20 Active 40715149 Problem Hyperlipidemia, unspecified hyperlipidemia type E7 8.5 Active 72252183 Problem Acute left-sided low back pain with left-sided sciatica M54.42 Active 474555892 Problem Sciatica of left side M54.32 Active 18615762 Problem Plantar wart of right foot B07.0 Act mitchell [id number] Problem Slow transit constipation K59.01 Acti ve 64334221 ALLERGIES No Information ENCOUNTERS Encounter Location Date Diagnosis [facility] [address] [facility] [id number] [address] [place] [address] Feb, [facility] [address] [facility] [id number] [address] [place] [address] Feb, [facility] [address] [facility] [id number] [address] [place] [address] Jan, [facility] [address] [facility] [id number] [address] [place] [address] Jan, [facility] [address] [facility] [id number] [address] [place] [phone] Jan, [facility] [address] [facility] [id number] [address] [place] [address] Jan, Bipolar 1 disorder, mixed F3 1.60 [facility] [address] [facility] [id number] [address] [place] [address] Dec, Normal pelvic exam Z01.419 [facility] [address] [facility] [id number] [address] [place] [address] Dec, Bipolar 1 disorder, mixed F3 1.60 [facility] [address] [facility] [id number] [address] [place] [address] Nov, Bipolar 1 disorder, mixed F3 1.60 [facility] [address] [facility] [id number] [address] [place] [address] Nov, Bipolar 1 disorder, mixed F3 1.60 ; Generalized anxiety disorder F41.1 ; Tobacco use disorder F17.200 and Other long-term (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 Z79.899 [facility] [address] [id number] [address] [place] [address] Nov, [facility] [address] [id number] [address] [place] [address] Nov, Bipolar 1 disorder, mixed F3 1.60 [facility] [address] [facility] [id number] [address] [place] [address] October, Bipolar 1 disorder, mixed F3 1.60 [facility] [address] [id number] [address] [place] [address] October, Bipolar 1 disorder, mixed F3 1.60 [place] [address] [facility] [id number] [address] [place] [address] October, [facility] [address] [facility] [id number] [address] [place] [address] October, Bipolar 1 disorder, mixed F3 1.60 ; Generalized anxiety disorder F41.1 and Tobacco use disorder F17.200 [facility] [address] [facility] [id number] [address] [place] [address] Sep, [facility] [address] [facility] [id number] [address] [place] [address] Sep, Encounter for Medicare annua wellness exam Z00.00 ; Major depressive disorder, recurrent episode, moderate F33.1 ; Allergic rhinitis J30.9 ; Bipolar 1 disorder, mixed F31.60 ; Fibromyalgia M79.7 ; Hyperlipidemia, unspecified hyperlipidemia type E78.5 ; Hormone replacement therapy Z79.890 ; Encounter for screening for lung cancer Z12.2 and Tobacco use disorder F17.200 [facility] [address] [facility] [id number] [address] [place] [address] Sep, Bipolar 1 disorder, mixed F3 1.60 [facility] [address] [facility] [id number] [address] [place] [address] Sep, Other chronic pain G89.29 ; Hyperlipidemia, unspecified hyperlipidemia type E78.5 ; Breast cancer screening Z12.31 and Post menopausal syndrome N95.1 [place] [address] [address] 16 Sep, 2018 Bipolar 1 disorder, mixed F3 1.60 [place] [address] [place] [id number] 15 Sep, 2018 Bipolar 1 disorder, mixed F3 1.60 ; Generalized anxiety disorder F41.1 and Tobacco use disorder F17.200 [place] [address] [address] Sep, Gastritis without bleeding, unspecified chronicity, unspecified gastritis type K29.70 [place] [address] [place] [address] Sep, Exercise counseling Z71.82 [place] [address] [address] Aug, Exercise counseling Z71.82 [place] [address] [address] Aug, Bipolar 1 disorder, mixed F3 1.60 [place] [address] [address] Aug, Exercise counseling Z71.82 [place] [address] [address] Aug, Bipolar 1 disorder, mixed F3 1.60 [place] [address] [address] Aug, Gastritis without bleeding, unspecified chronicity, unspecified gastritis type K29.70 ; Tobacco abuse Z72.0 ; Generalized anxiety disorder F41.1 and Weight gain R63.5 [place] [address] [address] 14 Aug, 2018 Bipolar 1 disorder, mixed F3 1.60 ; Generalized anxiety disorder F41.1 and Tobacco use disorder F17.200 [place] [address] [address] Jul, Bipolar 1 disorder, mixed F3 1.60 [facility] [address] [id number] [address] [place] [address] Jul, [facility] [address] [facility] [id number] [address] [place] [address] Jul, Bipolar 1 disorder, mixed F3 1.60 [facility] [address] [facility] [id number] [address] [place] [address] Jul, Allergic rhinitis J30.9 ; Ma darion depressive disorder, recurrent episode, moderate F33.1 and Tobacco 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 [facility] [address] [facility] [id number] [address] [place] [address] Jun, [facility] [address] [facility] [id number] [address] [place] [address] Jun, [facility] [address] [place] [id number] [address] [place] [address] Jun, Bipolar 1 disorder, mixed F3 1.60 [facility] [address] [facility] [id number] [address] [place] [address] Jun, Bipolar 1 disorder, mixed F3 1.60 [facility] [address] [place] [id number] [address] [place] [address] Jun, Bipolar 1 disorder, mixed F3 1.60 [facility] [address] [place] [id number] [address] [place] [address] Jun, Generalized anxiety disorder F41.1 ; Tobacco abuse Z72.0 and Major depressive disorder, recurrent episode, moderate F33.1 [facility] [address] [facility] [id number] [address] [place] [address] May, Bipolar 1 disorder, mixed F3 1.60 [facility] [address] [facility] [id number] [address] [place] [address] May, Bipolar 1 disorder, mixed F3 1.60 and Generalized anxiety disorder F41.1 [facility] [address] [place] [id number] [address] [place] [address] May, Bipolar 1 disorder, mixed F3 1.60 [facility] [address] [address] May, Allergic rhinitis J30.9 [facility] [address] [place] [id number] [address] [place] [address] May, Bipolar 1 disorder, mixed F3 1.60 [facility] [address] [address] May, [facility] [address] [address] Apr, Allergic rhinitis J30.9 ; Dy sfunction of both eustachian tubes H69.83 ; History of bladder surgery Z98.890 and Cervicalgia M54.2 [place] [address] [address] Mar, Bipolar 1 disorder, mixed F3 1.60 [facility] [address] [address] Mar, [place] [address] [address] Mar, Slow transit constipation K5 9.01 ; Encounter for immunization Z23 and Generalized anxiety disorder F41.1 [facility] [address] [place] [id number] [address] [place] [address] Feb, Bipolar 1 disorder, mixed F3 1.60 [facility] [address] [place] [id number] [address] [place] [address] Feb, Allergic rhinitis J30.9 [facility] [address] [place] [id number] [place] [address] Feb, Bipolar 1 disorder, mixed F3 1.60 [facility] [address] [place] [id number] [address] [place] [address] Feb, Bipolar 1 disorder, mixed F3 1.60 and Generalized anxiety disorder F41.1 [place] [address] [facility] [id number] [address] [place] [address] 13 Feb, 2018 Bipolar 1 disorder, mixed F3 1.60 [place] [address] [facility] [id number] [address] [place] [address] Feb, Allergic rhinitis J30.9 [facility] [address] [facility] [id number] [address] [place] [address] Feb, [place] [address] [facility] [id number] [address] [place] [address] Jan, Bipolar 1 disorder, mixed F3 1.60 [place] [address] [place] [id number] [address] [place] [address] Jan, Low back pain M54.5 ; Hyperl ipidemia, unspecified hyperlipidemia type E78.5 and Bipolar 1 disorder, mixed F31.60 [place] [address] [place] [id number] [address] [place] [address] Jan, Bipolar 1 disorder, mixed F3 1.60 [place] [address] [place] [id number] [address] [place] [address] Jan, Bipolar 1 disorder, mixed F3 1.60 [place] [address] [place] [id number] [address] [place] [address] Jan, Bipolar 1 disorder, mixed F3 1.60 [place] [address] [place] [id number] [address] [place] [address] Jan, Bipolar 1 disorder, mixed F3 1.60 [place] [address] [place] [id number] [address] [place] [address] Dec, Bipolar 1 disorder, mixed F3 1.60 ; Generalized anxiety disorder F41.1 and 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 [place] [address] [facility] [id number] [address] [place] [address] Dec, 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 Z79.899 [place] [address] [place] [id number] [address] [place] [address] Dec, Bipolar 1 disorder, mixed F3 1.60 [facility] [address] [facility] [id number] [address] [place] [address] Dec, Bipolar 1 disorder, mixed F3 1.60 [facility] [address] [facility] [id number] [address] [place] [address] Nov, Bipolar 1 disorder, mixed F3 1.60 [facility] [address] [facility] [id number] [address] [place] [address] Nov, Bipolar 1 disorder, mixed F3 1.60 [facility] [address] [facility] [id number] [address] [place] [address] Nov, Bipolar 1 disorder, mixed F3 1.60 [facility] [address] [facility] [id number] [address] [place] [address] Nov, Allergic rhinitis J30.9 [facility] [address] [facility] [id number] [address] [place] [address] Nov, Allergic rhinitis J30.9 [facility] [address] [facility] [id number] [address] [place] [address] Nov, [facility] [address] [facility] [id number] [address] [place] [address] Nov, Bipolar 1 disorder, mixed F3 1.60 [facility] [address] [facility] [id number] [address] [place] [address] Nov, Fibromyalgia M79.7 and Aller gic rhinitis J30.9 [facility] [address] [facility] [id number] [address] [place] [address] October, Bipolar 1 disorder, mixed F3 1.60 [facility] [address] [facility] [id number] [address] [place] [address] October, Acute nasopharyngitis J00 [facility] [address] [facility] [id number] [address] [place] [address] October, Bitten or stung by nonvenomo us insect and other nonvenomous arthropods, initial encounter W57.XXXA and Insect bite (nonvenomous) of abdominal wall, initial encounter S30.861A [facility] [address] [facility] [id number] [address] [place] [address] October, Insect bite (nonvenomous) of abdominal wall, initial encounter S30.861A ; Bitten or stung by nonvenomous insect and other nonvenomous arthropods, initial encounter W57.XXXA ; Allergic rhinitis J30.9 and Low back pain M54.5 [facility] [address] [facility] [id number] [address] [place] [address] October, Bipolar 1 disorder, mixed F3 1.60 [facility] [address] [place] [id number] [address] [place] [address] October, [facility] [address] [place] [id number] [address] [place] [address] October, [facility] [address] [place] [id number] [address] [place] [address] October, Bipolar 1 disorder, mixed F3 1.60 [facility] [address] [place] [id number] [address] [place] [address] Sep, Bipolar 1 disorder, mixed F3 1.60 [facility] [address] [place] [id number] [address] [place] [address] Sep, Other chronic pain G89.29 [facility] [address] [facility] [id number] [address] [place] [address] Sep, [facility] [address] [place] [id number] [address] [place] [address] Sep, Bipolar 1 disorder, mixed F3 1.60 [facility] [address] [place] [id number] [address] [place] [address] Sep, Allergic rhinitis J30.9 and Sciatica of left side M54.32 [facility] [address] [facility] [id number] [address] [place] [address] Sep, Bipolar 1 disorder, mixed F3 1.60 [facility] [address] [facility] [id number] [address] [place], [place] [address] Sep, Bipolar 1 disorder, mixed F3 1.60 and Generalized anxiety disorder F41.1 [facility] [address] [facility] [id number] [address] [place] [address] Aug, [facility] [address] [facility] [id number] [address] [place] [address] Aug, Bipolar 1 disorder, mixed F3 1.60 [facility] [address] [facility] [id number] [address] [place] [address] Aug, Bipolar 1 disorder, mixed F3 1.60 [facility] [address] [place] [id number] [address] [place] [address] Aug, [facility] [address] [place] [id number] [address] [place] [address] Aug, Generalized anxiety disorder F41.1 [facility] [address] [facility] [id number] [address] [place] [address] Aug, Bipolar 1 disorder, mixed F3 1.60 [facility] [address] [facility] [id number] [address] [place] [address] Aug, Plantar wart of right foot B 07.0 [facility] [address] [facility] [id number] [address] [place] [address] Aug, Bipolar 1 disorder, mixed F3 1.60 [facility] [address] [facility] [id number] [address] [place] [address] Jul, Bipolar 1 disorder, mixed F3 1.60 [facility] [address] [facility] [id number] [address] [place] [address] Jul, [facility] [address] [facility] [id number] [address] [place] [address] Jul, Bipolar 1 disorder, mixed F3 1.60 [facility] [address] [facility] [id number] [address] [place] [address] 09 Jul, 2017 Generalized anxiety disorder F41.1 [facility] [address] [facility] [id number] [address] [place] [address] 07 Jul, 2017 Bipolar 1 disorder, mixed F3 1.60 [facility] [address] [place] [id number] [address] [place] [address] 07 Jul, 2017 Acute left-sided low back pa in with left-sided sciatica M54.42 [facility] [address] [facility] [id number] [address] [place] [address] 05 Jul, 2017 Coccydynia M53.3 [facility] [address] [facility] [id number] [address] [place] [address] Jun, Bipolar 1 disorder, mixed F3 1.60 [facility] [address] [facility] [id number] [address] [place] [address] Jun, Acute nasopharyngitis J00 [facility] [address] [facility] [id number] [address] [place] [address] Jun, Bipolar 1 disorder, mixed F3 1.60 [facility] [address] [facility] [id number] [address] [place] [address] Jun, Fibromyalgia M79.7 [facility] [address] [place] [id number] [address] [place] [address] Jun, Bipolar 1 disorder, mixed F3 1.60 [facility] [address] [facility] [id number] [address] [place] [address] Jun, Fibromyalgia M79.7 and Bipol ar 1 disorder, mixed F31.60 [facility] [address] [facility] [id number] [address] [place] [address] May, Bipolar 1 disorder, mixed F3 1.60 ; Generalized anxiety disorder F41.1 and Other long-term (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 Z79.899 [place] [address] [place] [address] May, Bipolar 1 disorder, mixed F3 1.60 [facility] [place] [address] [address] 14 May, 2017 Cough R05 and Body aches R52 [facility] [address] [address] 10 May, 2017 Bladder spasm N32.89 and Acu te cystitis without hematuria N30.00 [place] [address] [address] 07 May, 2017 Bipolar 1 disorder, mixed F3 1.60 [place] [address] [address] 30 Apr, 2017 [place] [address] [address] Apr, Major depressive disorder, r ecurrent episode, moderate F33.1 and Encounter for immunization Z23 [place] [address] [address] Apr, Bipolar 1 disorder, mixed F3 1.60 [place] [address] [address] Apr, Bipolar 1 disorder, mixed F3 1.60 [place] [address] [address] 16 Apr, 2017 Bipolar 1 disorder, mixed F3 1.60 [place] [address] [address] 13 Apr, 2017 Yeast vaginitis B37.3 [place] [address] [address] 09 Apr, 2017 Bipolar 1 disorder, mixed F3 1.60 [facility] [place] [address] [place] [id number] [address] [place] [address] 07 Apr, [address]ulitis L03[address] for immunization Z23 [facility] [address] [place] [id number] [address] [place] [address] Apr, Bipolar 1 disorder, mixed F3 1.60 [place] [address] [place] [id number] [place], [place] [address] Mar, Bipolar 1 disorder, mixed F3 1.60 [place] [address] Mar, Bipolar 1 disorder, mixed F3 1.60 [place] [address] Mar, Imbalance R26.89 [address] er for immunization Z23 [place] [address] Mar, Generalized anxiety disorder F41.1 [place] [address] Mar, Bipolar 1 disorder, mixed F3 1.60 [place] [address] [address] Mar, Generalized anxiety disorder F41.1 [place] [address] [place] [id number] [place] [address] Mar, Bipolar 1 disorder, mixed F3 1.60 [place] [address] [place] [id number] [address] [place] [address] Mar, Bipolar 1 disorder, mixed F3 1.60 [place] [address] [place] [id number] [address] [place] [address] Feb, Bipolar 1 disorder, mixed F3 1.60 [place] [address] [place] [id number] [place] [address] Feb, Bipolar 1 disorder, mixed F3 1.60 and Generalized anxiety disorder F41.1 [facility] [id number] [place] [id number] 21 Sep, 2017 Gastritis without bleeding, unspecified chronicity, unspecified gastritis type K29.70 ; Hammer toe of right foot M20.41 and Other viral warts B07.8 [place] [address] [facility] [id number] [address] [place] [id number] Feb, Bipolar 1 disorder, mixed F3 1.60 [place] [address] [place] [id number] [place] [id number] 13 Feb, 2017 Bipolar 1 disorder, mixed F3 1.60 [place] [address] [facility] [id number] [address] [place] [id number] 05 Feb, 2017 Bipolar 1 disorder, mixed F3 1.60 [place] [address] [place] [id number] [place] [id number] 31 Jan, 2017 Encounter for screening mamm ogram for breast cancer Z12.31 ; Other viral warts B07.8 and Allergic rhinitis J30.9 [place] [address] [address] [facility] [id number] [address] [place] [address] Jan, Bipolar 1 disorder, mixed F3 1.60 [place] [address] [facility] [id number] [address] [place] [address] Jan, Bipolar 1 disorder, mixed F3 1.60 [place] [address] [facility] [id number] [address] [place] [address] Jan, [place] [address] [facility] [id number] [address] [place] [address] Jan, Bipolar 1 disorder, mixed F3 1.60 [place] [address] [facility] [id number] [address] [place] [address] Jan, Bipolar 1 disorder, mixed F3 1.60 [place] [address] [facility] [id number] [address] [place] [address] Jan, Allergic rhinitis J30.9 ; He maturia R31.9 and Colon cancer screening Z12.11 [place] [address] [facility] [id number] [address] [place] [address] Dec, Bipolar 1 disorder, mixed F3 1.60 [facility] [address] [facility] [id number] [address] [place] [address] Dec, Bipolar 1 disorder, mixed F3 1.60 ; Generalized anxiety disorder F41.1 and Other long-term (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 Z79.899 [facility] [address] [facility] [id number] [address] [place] [address] Dec, Bipolar 1 disorder, mixed F3 1.60 [facility] [address] [facility] [id number] [address] [place] [address] Dec, Bipolar 1 disorder, mixed F3 1.60 [place] [address] [facility] [id number] [address] [place] [address] Dec, Bipolar 1 disorder, mixed F3 1.60 [place] [address] [facility] [id number] [address] [place] [address] Dec, Low back pain M54.5 and Recu rrent urinary tract infection N39.0 [facility] [address] [id number] [address] [place] [address] Nov, Bipolar 1 disorder, mixed F3 1.60 [facility] [address] [facility] [id number] [address] [place] [address] Nov, Bipolar 1 disorder, mixed F3 1.60 [facility] [address] [facility] [id number] [address] [place] [address] Nov, Bipolar 1 disorder, mixed F3 1.60 [facility] [address] [facility] [id number] [address] [place] [address] Nov, Bipolar 1 disorder, mixed F3 1.60 [facility] [address] [facility] [id number] [address] [place] [address] Nov, [facility] [address] [facility] [id number] [address] [place] [address] Nov, Anesthesia of skin R20.0 ; F requent UTI N39.0 ; Tobacco abuse Z72.0 and Colon cancer screening Z12.11 [place] [address] [address] [place] [id number] [address] [place] [address] Nov, Bipolar 1 disorder, mixed F3 1.60 [place] [address] [place] [id number] [place] [address] October, Bipolar 1 disorder, mixed F3 1.60 [place] [address] [address] October, Bipolar 1 disorder, mixed F3 1.60 [place] [address] [address] October, Bipolar 1 disorder, mixed F3 1.60 [place] [address] [address] October, Bipolar 1 disorder, mixed F3 1.60 [place] [address] [address] October, Bipolar 1 disorder, mixed F3 1.60 [place] [address] [place] [id number] [address] [place] [address] October, Cervicalgia M54.2 and Bipola r 1 disorder, mixed F31.60 [place] [address] [place] [id number] [address] [place] [address] October, Hypertension I10 ; Hyperlipi demia, unspecified hyperlipidemia type E78.5 and Family history of thyroid disease Z83.49 [place] [address] [place] [address] October, [place] [address] [place] [id number] [place] [address] October, Hypertension I10 ; Hyperlipi demia, unspecified hyperlipidemia type E78.5 and Family history of thyroid problem Z83.49 [place] [address] [place] [id number] [address] [place] [address] October, Bipolar 1 disorder, mixed F3 1.60 [place] [address] [place] [id number] [address] [place] [address] Sep, Bipolar 1 disorder, mixed F3 1.60 [facility] [address] [address] Sep, Bipolar 1 disorder, mixed F3 1.60 [facility] [address] [address] Sep, Bipolar 1 disorder, mixed F3 1.60 [facility] [address] [address] Sep, History of colon polyps Z86. 010 and Hematochezia K92.1 [place] [address] [address] Sep, Major depressive disorder, r ecurrent episode, moderate F33.1 [place] [address] [address] Sep, Bipolar 1 disorder, mixed F3 1.60 [facility] [address] [address] Aug, Hot flashes due to menopause N95.1 [facility] [address] [address] Aug, Bipolar 1 disorder, mixed F3 1.60 [place] [address] [address] Aug, [facility] [address] [address] Aug, Bipolar 1 disorder, mixed F3 1.60 [place] [address] [address] Aug, Bipolar 1 disorder, mixed F3 1.60 [facility] [address] [address] Aug, Hot flashes due to menopause N95.1 ; Cervicalgia M54.2 and Ataxia R27.0 [place] [address] [address] Jul, Bipolar 1 disorder, mixed F3 1.60 [place] [address] Jul, Bipolar 1 disorder, mixed F3 1.60 [place] [address] [place] [address] Jul, Bipolar 1 disorder, mixed F3 1.60 [place] [address] [address] Jul, Bipolar 1 disorder, mixed F3 1.60 [place] [address] Jul, Bipolar 1 disorder, mixed F3 1.60 [place] [address] [address] 08 Jul, 2016 Cervicalgia M54.2 ; Tremor R 25.1 ; Hearing abnormally acute, unspecified laterality H93.239 ; Alopecia L65.9 ; Encounter for immunization Z23 and Family history of thyroid disease Z83.49 [place] [address] [address] Jul, Bipolar 1 disorder, mixed F3 1.60 [place] [address] [address] Jun, [place] [address] [address] Jun, Hearing disorder, unspecifie d laterality H93.299 [place] [address] [address] Jun, Bipolar 1 disorder, mixed F3 1.60 [place] [address] [address] Jun, Bipolar 1 disorder, mixed F3 1.60 [place] [address] [id number] [address] [place] [address] Jun, Allergic rhinitis J30.9 [facility] [address] [id number] [address] [place] [address] Jun, Bipolar 1 disorder, mixed F3 1.60 [facility] [address] [facility] [id number] [address] [place] [address] Jun, Bipolar 1 disorder, mixed F3 1.60 [facility] [address] [id number] [address] [place] [address] Jun, Allergic rhinitis J30.9 [facility] [address] [id number] [address] [place] [address] Jun, Allergic rhinitis J30.9 [facility] [address] [facility] [id number] [address] [place] [address] Jun, Bipolar 1 disorder, mixed F3 1.60 [facility] [address] [facility] [id number] [address] [place] [address] May, Bipolar 1 disorder, mixed F3 1.60 [facility] [address] [id number] [address] [place] [address] May, Bipolar 1 disorder, mixed F3 1.60 [facility] [address] [facility] [id number] [address] [place] [address] May, [facility] [address] [facility] [id number] [address] [place] [address] May, Bipolar 1 disorder, mixed F3 1.60 [facility] [address] [id number] [address] [place] [address] May, Bipolar 1 disorder, mixed F3 1.60 [facility] [address] [facility] [id number] [address] [place] [address] May, [facility] [address] [facility] [id number] [address] [place] [address] May, [facility] [address] [place] [id number] [address] [place] [address] May, [facility] [address] [place] [id number] [address] [place] [address] May, Abdominal pain, unspecified location R10.9 [facility] [address] [place] [id number] [place] [address] May, [facility] [address] [address] Apr, Hematuria R31.9 ; Ataxia R27 .0 and Hearing loss, unspecified laterality H91.90 [facility] [address] [address] Apr, Bipolar 1 disorder, mixed F3 1.60 [facility] [address] [address] Apr, Acute effusion of both middl e ears H65.193 [facility] [address] [address] Apr, Hematuria R31.9 and Pyelonep hritis N12 [facility] [address] [address] Apr, [facility] [address] [address] Mar, Bipolar 1 disorder, mixed F3 1.60 [facility] [address] [place] [id number] [address] [place] [address] Mar, [facility] [address] [place] [id number] [place] [address] Mar, Bipolar 1 disorder, mixed F3 1.60 [facility] [address] [place] [id number] [address] [place] [address] Mar, Bipolar 1 disorder, mixed F3 1.60 [facility] [address] [address] Mar, Encounter for immunization Z 23 and Gastritis without bleeding, unspecified chronicity, unspecified gastritis type K29.70 [place] [address] [address] 05 Mar, 2016 Bipolar 1 disorder, mixed F3 1.60 and Grief F43.20 [place] [address] [address] Mar, Gastritis without bleeding, unspecified chronicity, unspecified gastritis type K29.70 [place] [address] [address] Mar, Bipolar 1 disorder, mixed F3 1.60 [place] [address] [address] Mar, Gastritis without bleeding, unspecified chronicity, unspecified gastritis type K29.70 [place] [address] [address] Mar, [place] [address] [address] 27 Feb, 2016 Bipolar 1 disorder, mixed F3 1.60 [place] [address] [address] Feb, Bipolar 1 disorder, mixed F3 1.60 and Grief F43.20 [place] [address] [address] Feb, Gastritis without bleeding, unspecified chronicity, unspecified gastritis type K29.70 [place] [address] [address] 14 Feb, 2016 Bipolar 1 disorder, mixed F3 1.60 [facility] [address] [address] 09 Feb, 2016 Gastroesophageal reflux dise ase, esophagitis presence not specified K21.9 [place] [address] [address] Jan, Bipolar 1 disorder, mixed F3 1.60 [facility] [address] [facility] [id number] [address] [place] [address] Jan, Bipolar 1 disorder, mixed F3 1.60 and Unsteady gait R26.81 [facility] [address] [id number] [address] [place] [address] Jan, Bipolar 1 disorder, mixed F3 1.60 [facility] [address] [facility] [id number] [address] [place], [place] [id number] Jan, Bipolar 1 disorder, mixed F3 1.60 and Other long-term (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 Z79.899 [place] [address] [facility] [id number] [address] [place], [place] [id number] Jan, Bipolar 1 disorder, mixed F3 1.60 [place] [address] [place] [id number] [address] [place] [address] Jan, Bipolar 1 disorder, mixed F3 1.60 [place] [address] [facility] [id number] [address] [place] [address] Jan, Bipolar 1 disorder, mixed F3 1.60 ; Grief F43.20 and 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 [place] [address] [facility] [id number] [address] [place] [address] Jan, Bipolar 1 disorder, mixed F3 1.60 [place] [address] [facility] [id number] [address] [place] [address] Dec, [place] [address] [facility] [id number] [address] [place] [address] Dec, Bipolar 1 disorder, mixed F3 1.60 ; Vitamin D deficiency, unspecified E55.9 ; H/O allergic rhinitis Z87.09 ; Other chronic pain G89.29 and Dorsalgia, unspecified M54.9 [facility] [address] [facility] [id number] [address] [place] [address] Dec, [place] [address] [facility] [id number] [address] [place] [address] Dec, Bipolar 1 disorder, mixed F3 1.60 [facility] [address] [facility] [id number] [address] [place] [address] Dec, Major depressive disorder, r ecurrent episode, moderate F33.1 [facility] [address] [place] [id number] [address] [place] [address] Dec, Major depressive disorder, r ecurrent episode, moderate F33.1 [facility] [address] [place] [id number] [address] [place] [address] Nov, [place] [address] [place] [id number] [place] [address] Nov, Bipolar 1 disorder, mixed F3 1.60 [place] [address] [place] [id number] [address] [place] [address] Nov, Major depressive disorder, r ecurrent episode, moderate F33.1 [place] [address] [place] [id number] [address] [place] [address] Nov, Cervicalgia M54.2 ; Arthralg ia of hip, unspecified laterality M25.559 ; Allergic rhinitis J30.9 and Hormone replacement therapy Z79.890 [facility] [address] [facility] [id number] [address] [place] [address] Nov, Other seasonal allergic rhin itis J30.2 [facility] [address] [facility] [id number] [address] [place] [address] October, Major depressive disorder, r ecurrent episode, moderate F33.1 [facility] [address] [facility] [id number] [address] [place] [address] October, Major depressive disorder, r ecurrent episode, moderate F33.1 and Arthralgia of hip, unspecified laterality M25.559 [facility] [address] [place] [id number] [address] [place] [address] October, Grief F43.20 ; Hypertension I10 ; Hyperlipidemia, unspecified hyperlipidemia type E78.5 ; Other chronic pain G89.29 and Allergic rhinitis, unspecified allergic rhinitis type J30.9 [place] [address] [address] October, Major depressive disorder, r ecurrent episode, moderate F33.1 [place] [address] [place] [address] Sep, Major depressive disorder, r ecurrent episode, moderate F33.1 [place] [address] [place] [address] Sep, [place] [address] [address] Sep, Major depressive disorder, r ecurrent episode, moderate F33.1 [place] [address] [address] Sep, Grief F43.20 [place] [address] [address] Aug, Major depressive disorder, r ecurrent episode, moderate F33.1 [place] [address] [address] Aug, Bipolar 1 disorder, mixed F3 1.60 [place] [address] [address] Aug, Allergic rhinitis J30.9 ; Ce rvicalgia M54.2 and Low back pain M54.5 [place] [address] [place] [address] Aug, Major depressive disorder, r ecurrent episode, moderate F33.1 [facility] [address] [place] [id number] [address] [place] [address] Aug, Sinusitis J32.9 and Tobacco 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 [place] [address] [address] Aug, [facility] [address] [id number] [address] [place] [address] Aug, Depressive disorder, not els ewhere classified F32.9 ; Hormone replacement therapy Z79.[address] scan, head R93.0 [facility] [address] [facility] [id number] [address] [place] [address] Aug, Major depressive disorder, r ecurrent episode, moderate F33.1 [facility] [address] [id number] [address] [place] [address] Jul, Major depressive disorder, r ecurrent episode, moderate F33.1 [facility] [address] [facility] [id number] [address] [place] [address] Jul, Abdominal pain R10.9 and Hyp ertension I10 [facility] [address] [id number] [address] [place] [address] Jul, [facility] [address] [facility] [id number] [address] [place] [address] Jul, Major depressive disorder, r ecurrent episode, moderate F33.1 [facility] [address] [facility] [id number] [address] [place] [address] Jul, [facility] [address] [facility] [id number] [address] [place] [address] Jul, [facility] [address] [facility] [id number] [address] [place] [address] Jun, [facility] [address] [facility] [id number] [address] [place] [address] Jun, Depressive disorder, not els ewhere classified F32.9 [facility] [address] [facility] [id number] [address] [place] [address] Jun, [facility] [address] [facility] [id number] [address] [place] [address] Jun, [facility] [address] [place] [id number] [address] [place] [address] Jun, Arthralgia of hip, unspecifi ed laterality M25.559 ; Bruising, spontaneous R23.3 and Night sweats R61 [facility] [address] [id number] [address] [place] [address] Jun, [facility] [address] [id number] [address] [place] [address] Jun, [facility] [address] [id number] [address] [place] [address] May, [facility] [address] [id number] [address] [place] [address] May, Myalgia M79.1 and Screening, lipid Z13.220 [facility] [address] [id number] [address] [place] [address] Apr, Status post cervical spinal fusion Z98.1 ; Fibromyalgia M79.7 and Unsteady gait R26.81 [facility] [address] [id number] [address] [place] [address] Nov, [facility] [address] [id number] [address] [place] [address] Nov, [facility] [address] [id number] [address] [place] [address] October, [facility] [address] [id number] [address] [place] [address] October, [facility] [address] [id number] [address] [place] [address] October, [facility] [address] [id number] [address] [place] [address] October, [facility] [address] [id number] [address] [place] [address] October, [facility] [address] [id number] [address] [place] [address] October, Dysuria 788.1 ; Nausea 787.0 2 and Urinary tract infection 599.0 [facility] [address] [id number] [address] [place] [address], [place] [address] 14 Sep, 2014 [facility] [address] [id number] [address] [place] [address] Sep, [facility] [address] [id number] [address] [place] [address] Aug, [facility] [address] [id number] [address] [place] [address] Aug, [facility] [address] [id number] [address] [place] [address] Aug, [facility] [address] [id number] [address] [place] [address] Aug, [facility] [address] [id number] [address] [place] [address] Aug, [facility] [address] [id number] [address] [place] [address] Aug, [facility] [address] [id number] [address] [place] [address] Aug, [facility] [address] [id number] [address] [place] [id number] 19 Aug, 2014 [facility] [address] [id number] [address] [place] [id number] 19 Aug, 2014 [facility] [address] [id number] [address] [place] [id number] 18 Aug, 2014 [facility] [address] [id number] [address] [place] [id number] 18 Aug, 2014 [facility] [address] [id number] [address] [place] [id number] 13 Aug, 2014 [facility] [address] [id number] [address] [place] [id number] Aug, [facility] [address] [id number] [address] [place] [address], [place] [id number] Aug, [facility] [address] [id number] [address] [place] [address], [place] [id number] Aug, [facility] [address] [id number] [address] [place] [address], [place] [id number] Aug, [facility] [address] [id number] [address] [place] [address], [place] [id number] Aug, [facility] [address] [id number] [address] [place] [address], [place] [id number] Aug, [facility] [address] [id number] [address] [place] [address], [place] [id number] Aug, [facility] [address] [id number] [address] [place] [address], [place] [id number] Aug, [facility] [address] [id number] [address] [place] [address], [place] [id number] Aug, [facility] [address] [id number] [address] [place] [address], [place] [id number] Aug, [facility] [address] [id number] [address] [place] [address], [place] [id number] Jul, [facility] [address] [id number] [address] [place] [address], [place] [id number] Jul, [facility] [address] [id number] [address] [place] [address], [place] [id number] Jul, [facility] [address] [id number] [address] [place] [address], [place] [id number] Jul, [facility] [address] [id number] [address] [place] [address], [place] [id number] Jul, [facility] [address] [id number] [address] [place] [address], [place] [address] Jul, [facility] [address] [id number] [address] [place] [address], [place] [address] Jul, 2014 [facility] [address] [id number] [address] [place] [address], [place] [address] Jul, 2014 [facility] [address] [id number] [address] [place] [address], [place] [address] Jul, 2014 [facility] [address] [id number] [address] [place] [address], [place] [address] Jul, 2014 [facility] [address] [id number] [address] [place] [address], [place] [address] Jul, 2014 [facility] [address] [id number] [address] [place] [address], [place] [address] Jul, 2014 [facility] [address] [id number] [address] [place] [address], [place] [address] Jul, [facility] [address] [id number] [address] [place] [address], [place] [address] Jul, [facility] [address] [id number] [address] [place] [address], [place] [address] Jun, [facility] [address] [id number] [address] [place] [address], [place] [address] Jun, [facility] [address] [id number] [address] [place] [address], [place] [address] Jun, [facility] [address] [id number] [address] [place] [id number] Jun, [facility] [address] [id number] [address] [place] [address], [place] [address] Jun, [facility] [address] [id number] [address] [place] [address], [place] [address] Jun, [facility] [address] [id number] [address] [place] [address], [place] [address] May, [facility] [address] [id number] [address] [place] [address], [place] [address] 30 May, 2014 [facility] [address] [id number] [address] [place] [address], [place] [address] May, [facility] [address] [id number] [address] [place] [address], [place] [address] May, [facility] [address] [id number] [address] [place] [address], [place] [address] May, [facility] [address] [id number] [address] [place] [address], [place] [address] May, [facility] [address] [id number] [address] [place] [address], [place] [address] Apr, [facility] [address] [id number] [address] [place] [address], [place] [address] Apr, [facility] [address] [id number] [address] [place] [address], [place] [address] Apr, [facility] [address] [id number] [address] [place] [address], [place] [address] Apr, [facility] [address] [id number] [address] [place] [address], [place] [address] Apr, [facility] [address] [id number] [address] [place] [address], [place] [address] Apr, [facility] [address] [id number] [address] [place] [address], [place] [address] Mar, [facility] [address] [id number] [address] [place] [address], [place] [address] Mar, [facility] [address] [id number] [address] [place] [address], [place] [address] Mar, [facility] [address] [id number] [address] [place] [address], [place] [address] Mar, [facility] [address] [id number] [address] [place] [address], [place] [address] Mar, [facility] [address] [id number] [address] [place] [address], [place] [address] Mar, 2013 [facility] [address] [id number] [address] [place] [address], [place] [address] Mar, [facility] [address] [id number] [address] [place] [address], [place] [address] Mar, 2013 [facility] [address] [id number] [address] [place] [address], [place] [address] Mar, [facility] [address] [id number] [address] [place] [address], [place] [address] Mar, [facility] [address] [id number] [address] [place] [address], [place] [address] Mar, [facility] [address] [id number] [address] [place] [address], [place] [address] Mar, [facility] [address] [id number] [address] [place] [address], [place] [address] 30 Feb, 2013 [facility] [address] [id number] [address] [place] [address], [place] [address] 29 Feb, 2013 [facility] [address] [id number] [address] [place] [address], [place] [address] 29 Feb, 2013 [facility] [address] [id number] [address] [place] [address], [place] [address] 23 Feb, 2013 [facility] [address] [id number] [address] [place] [address], [place] [address] 23 Feb, 2013 [facility] [address] [id number] [address] [place] [address], [place] [address] 08 Feb, 2013 [facility] [address] [id number] [address] [place] [address], [place] [address] 08 Feb, 2013 [facility] [address] [id number] [address] [place] [address], [place] [address] Jan, [facility] [address] [id number] [address] [place] [address], [place] [address] Jan, [facility] [address] [id number] [facility] [place] [address] Jan, [facility] [address] [id number] [address] [place] [address], [place] [address] Dec, [facility] [address] [id number] [address] [place] [address], [place] [address] Dec, [facility] [address] [id number] [address] [place] [address], [place] [address] Dec, [facility] [address] [id number] [address] [place] [address], [place] [address] Dec, [facility] [address] [id number] [address] [place] [address], [place] [address] Sep, [facility] [address] [id number] [address] [place] [address], [place] [address] Sep, [facility] [address] [id number] [address] [place] [address], [place] [address] Sep, [facility] [address] [id number] [address] [place] [address], [place] [address] Sep, [facility] [address] [id number] [address] [place] [address], [place] [address] Sep, [facility] [address] [id number] [address] [place] [address], [place] [address] Sep, [facility] [address] [id number] [address] [place] [address], [place] [address] Sep, [facility] [address] [id number] [address] [place] [address], [place] [address] Sep, [facility] [address] [id number] [address] [place] [address], [place] [address] Aug, [facility] [address] [id number] [address] [place] [address], [place] [address] Aug, [facility] [address] [id number] [address] [place] [address], [place] [address] May, [facility] [address] [id number] [address] [place] [address], [place] [address] May, [facility] [address] [id number] [address] [place] [address], [place] [address] Apr, [facility] [address] [id number] [address] [place] [address], [place] [address] Apr, [facility] [address] [id number] [address] [place] [address], [place] [address] Apr, [facility] [address] [id number] [address] [place] [address], [place] [address] Apr, [facility] [address] [id number] [address] [place] [address], [place] [address] Apr, [facility] [address] [id number] [address] [place] [address], [place] [address] Apr, [facility] [address] [id number] [address] [place] [address], [place] [address] May, [facility] [address] [id number] [address] [place] [address], [place] [address] 18 May, 2012 [facility] [address] [id number] [address] [place] [address], [place] [address] 15 May, 2012 [facility] [address] [id number] [address] [place] [address], [place] [address] 15 May, 2012 [facility] [address] [id number] [address] [place] [address], [place] [address] 13 May, 2012 [facility] [address] [id number] [address] [place] [address], [place] [address] 13 May, 2012 [facility] [address] [id number] [address] [place] [address], [place] [address] 13 Apr, 2012 [facility] [address] [id number] [address] [place] [address], [place] [address] Apr, [facility] [address] [id number] [address] [place] [address], [place] [address] 08 Apr, 2012 [facility] [address] [id number] [address] [place] [address], [place] [address] Apr, [facility] [address] [id number] [address] [place] [address], [place] [address] Apr, [facility] [address] [id number] [address] [place] [address], [place] [address] Apr, [facility] [address] [id number] [address] [place] [address], [place] [address] Apr, [facility] [address] [id number] [address] [place] [address], [place] [address] Apr, [facility] [address] [id number] [address] [place] [address], [place] [address] Apr, [facility] [address] [id number] [address] [place] [address] Apr, [facility] [address] [id number] [address] [place] [address], [place] [address] Mar, [facility] [address] [id number] [address] [place] [address] Mar, [facility] [address] [id number] [address] [place] [address] Mar, [facility] [address] [id number] [address] [place] [address] Mar, [facility] [address] [id number] [address] [place] [address] Mar, [facility] [address] [id number] [address] [place] [address] Mar, [facility] [address] [id number] [address] [place] [address] Mar, [facility] [address] [id number] [address] [place] [address] Mar, [facility] [address] [id number] [address] [place] [address], [place] [address] Mar, [facility] [address] [id number] [address] [place] [address], [place] [address] 25 Feb, 2012 [facility] [address] [id number] [address] [place] [address], [place] [address] 16 Feb, 2012 [facility] [address] [id number] [address] [place] [address], [place] [address] Feb, [facility] [address] [id number] [address] [place] [address], [place] [address] Jan, [facility] [address] [id number] [address] [place] [address], [place] [address] Jan, [facility] [address] [id number] [address] [place] [address], [place] [address] Jan, [facility] [address] [id number] [address] [place] [address], [place] [address] Jan, [facility] [address] [id number] [address] [place] [address], [place] [address] Jan, [facility] [address] [id number] [address] [place] [address], [place] [address] Jan, [facility] [address] [id number] [address] [place] [address], [place] [address] Jan, [facility] [address] [id number] [address] [place] [address], [place] [address] Jan, [facility] [address] [id number] [address] [place] [address], [place] [address] Jan, [facility] [address] [id number] [address] [place] [address], [place] [address] Jan, [facility] [address] [id number] [address] [place] [address], [place] [address] Dec, [facility] [address] [id number] [address] [place] [address], [place] [address] Dec, [facility] [address] [id number] [address] [place] [address], [place] [address] Dec, [facility] [address] [id number] [address] [place] [address], [place] [address] Dec, [facility] [address] [id number] [address] [place] [address], [place] [address] Nov, [facility] [address] [id number] [address] [place] [address], [place] [address] Nov, [facility] [address] [id number] [address] [place] [address], [place] [address] Nov, [facility] [address] [id number] [address] [place] [address], [place] [address] October, [facility] [address] [id number] [address] [place] [address], [place] [address] October, [facility] [address] [id number] [address] [place] [address], [place] [address] October, [facility] [address] [id number] [address] [place] [address], [place] [address] October, [facility] [address] [id number] [address] [place] [address], [place] [address] October, [facility] [address] [id number] [address] [place] [address], [place] [address] October, [facility] [address] [id number] [address] [place] [address], [place] [address] Aug, [facility] [address] [id number] [address] [place] [address], [place] [address] Mar, [facility] [address] [id number] [address] [place] [address], [place] [address] Nov, [facility] [address] [id number] [address] [place] [address], [place] [address] May, [facility] [address] [facility] [id number] [address] [place] [id number] May, [facility] [address] [facility] [id number] [address] [place] [address] Apr, [facility] [address] [facility] [id number] [address] [place] [address] Mar, [facility] [address] [facility] [id number] [address] [place] [address] Mar, IMMUNIZATIONS No Known Immunizations SOCIAL HISTORY Never Assessed REASON FOR VISIT PLAN OF CARE VITAL SIGNS Height 64 in 2014-06-16 Weight 155.5 lbs 2014-06-16 Temperature 97.8 degrees Fahrenheit 2014-06-16 Heart Rate 82 bpm 2014-06-16 Respiratory Rate 18 2014-06-16 Blood pressure systolic 138 mmHg 2014-06-16 Blood pressure diastolic 76 mmHg 2014-06-16 MEDICATIONS Unknown Medications RESULTS No Results PROCEDURES No Known procedures INSTRUCTIONS MEDICATIONS ADMINISTERED No Known Medications MEDICAL (GENERAL) HISTORY Type Description Date Medical History Severe spinal stenosis [facility] cervical spine CT and MRI [...]
--- OUTSIDE RECORDS SUMMARY | 2019-06-19 05:07 | XMS REPORT ---
Author Author Sydnie Levine [facility] Address [address] [place] [address] Care Team Providers Care Skylights Assembler Name Role Phone MARISABEL Levine Unavailable PROBLEMS Type Condition ICD9-CM Code PLQ21-UC Code Onset Dates Condition S tatus SNOMED Code Problem Age-related osteoporosis without current pathological fracture M81.0 Active 60447724 Problem Sensorineural hearing loss (SNHL) of both ears H90 .3 Active [address]2542408 Problem Abnormal CT scan, head R93.0 Active 033685306 Problem Arthralgia of hip, unspecified laterality M25.559 Active 80282072 Problem Bruising, spontaneous R23.3 Active 914318746 Problem Hypertension I10 Active 8787825 3 Problem Night sweats R61 Active 9732549 0 Problem Imbalance R26.89 Active 779621786 Problem Hammer toe of right foot M20.41 Activ e 351232626 Problem Hormone replacement therapy Z79.890 Ac tive 502467438 Problem Bipolar 1 disorder, mixed F31.60 Acti ve 07531893 Problem Gastritis without bleeding, unspecified chronicity, unspecified gastritis type K29.70 Active 089476348 Problem Ataxia R27.0 Active 21048352 Problem Hearing loss, unspecified laterality H91.90 Active 83372120 Problem History of colon polyps Z86.010 Active 203831207 Problem Allergic rhinitis J30.9 Active 61 152554 Problem Hematuria, unspecified type R31.9 Ac tive 42988227 Problem Generalized anxiety disorder F41.1 A ctive 87887069 Problem Major depressive disorder, recurrent episode, moderate F33.1 Active 983610333 Problem Fibromyalgia M79.7 Active 4376932 7 Problem Bladder spasm N32.89 Active 861059 006 Problem Tobacco use disorder F17.200 Active 350313523 Problem Other chronic pain G89.29 Active 8 0045962 Problem Post menopausal syndrome N95.1 Activ e 124998017 Problem Grief F43.20 Active 82960103 Problem Hyperlipidemia, unspecified hyperlipidemia type E7 8.5 Active 37121862 Problem Acute left-sided low back pain with left-sided sciatica M54.42 Active 446787413 Problem Sciatica of left side M54.32 Active 75875931 Problem Plantar wart of right foot B07.0 Act mitchell [id number] Problem Slow transit constipation K59.01 Acti ve 20044654 ALLERGIES No Information ENCOUNTERS Encounter Location Date Diagnosis [facility] [id number] [place] [address] Jan, [facility] [address] [place] [id number] [address] [place] [address] Jan, [facility] [address] [address] Jan, [facility] [address] [address] Jan, [facility] [address] [address] Dec, Normal pelvic exam Z01.419 [place] [address] [address] Dec, Bipolar 1 disorder, mixed F3 1.60 [facility] [address] [place] [id number] [address] [place] [address] Nov, Bipolar 1 disorder, mixed F3 1.60 [facility] [address] [place] [id number] [address] [place] [address] Nov, Bipolar 1 disorder, mixed F3 1.60 ; Generalized anxiety disorder F41.1 ; Tobacco use disorder F17.200 and 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 [facility] [address] [place] [id number] [address] [place] [address] Nov, [facility] [address] [place] [id number] [address] [place] [address] Nov, Bipolar 1 disorder, mixed F3 1.60 [place] [address] [facility] [id number] [address] [place] [address] October, Bipolar 1 disorder, mixed F3 1.60 [place] [address] [facility] [id number] [address] [place] [id number] October, Bipolar 1 disorder, mixed F3 1.60 [place] [address] [facility] [id number] [address] [place] [id number] October, [place] [address] [facility] [id number] [address] [place] [id number] October, Bipolar 1 disorder, mixed F3 1.60 ; Generalized anxiety disorder F41.1 and Tobacco use disorder F17.200 [place] [address] [facility] [id number] [address] [place] [id number] Sep, [place] [address] [place] [id number] [address] [place] [address] Sep, Encounter for Medicare annua wellness exam Z00.00 ; Major depressive disorder, recurrent episode, moderate F33.1 ; Allergic rhinitis J30.9 ; Bipolar 1 disorder, mixed F31.60 ; Fibromyalgia M79.7 ; Hyperlipidemia, unspecified hyperlipidemia type E78.5 ; Hormone replacement therapy Z79.890 ; Encounter for screening for lung cancer Z12.2 and Tobacco use disorder F17.200 [place] [address] [facility] [id number] [address] [place] [address] Sep, Bipolar 1 disorder, mixed F3 1.60 [place] [address] [facility] [id number] [address] [place] [address] Sep, Other chronic pain G89.29 ; Hyperlipidemia, unspecified hyperlipidemia type E78.5 ; Breast cancer screening Z12.31 and Post menopausal syndrome N95.1 [place] [address] [facility] [id number] [address] [place] [id number] Sep, Bipolar 1 disorder, mixed F3 1.60 [place] [address] [place] [id number] [address] [place] [address] Sep, Bipolar 1 disorder, mixed F3 1.60 ; Generalized anxiety disorder F41.1 and Tobacco use disorder F17.200 [place] [address] [place] [id number] Sep, Gastritis without bleeding, unspecified chronicity, unspecified gastritis type K29.70 [place] [address] [address] Sep, Exercise counseling Z71.82 [place] [address] [address] Aug, Exercise counseling Z71.82 [place] [address] [place] [address] Aug, Bipolar 1 disorder, mixed F3 1.60 [place] [address] [address] Aug, Exercise counseling Z71.82 [place] [address] [address] Aug, Bipolar 1 disorder, mixed F3 1.60 [place] [address] [address] Aug, Gastritis without bleeding, unspecified chronicity, unspecified gastritis type K29.70 ; Tobacco abuse Z72.0 ; Generalized anxiety disorder F41.1 and Weight gain R63.5 [place] [address] [address] Aug, Bipolar 1 disorder, mixed F3 1.60 ; Generalized anxiety disorder F41.1 and Tobacco use disorder F17.200 [place] [address] [address] Jul, Bipolar 1 disorder, mixed F3 1.60 [place] [address] [address] Jul, [place] [address] [address] Jul, Bipolar 1 disorder, mixed F3 1.60 [facility] [address] [facility] [id number] [address] [place] [address] Jul, Allergic rhinitis J30.9 ; Ma darion depressive disorder, recurrent episode, moderate F33.1 and Tobacco 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 [facility] [address] [facility] [id number] [address] [place] [address] Jun, [facility] [address] [facility] [id number] [address] [place] [id number] Jun, [facility] [address] [facility] [id number] [address] [place] [id number] Jun, Bipolar 1 disorder, mixed F3 1.60 [place] [address] [place] [id number] [address] [place] [id number] Jun, Bipolar 1 disorder, mixed F3 1.60 [place] [address] [place] [id number] [address] [place] [id number] Jun, Bipolar 1 disorder, mixed F3 1.60 [place] [address] [place] [id number] [address] [place] [address] Jun, Generalized anxiety disorder F41.1 ; Tobacco abuse Z72.0 and Major depressive disorder, recurrent episode, moderate F33.1 [place] [address] [place] [id number] [address] [place] [address] May, Bipolar 1 disorder, mixed F3 1.60 [facility] [address] [place] [id number] [address] [place] [address] May, Bipolar 1 disorder, mixed F3 1.60 and Generalized anxiety disorder F41.1 [place] [address] [place] [id number] [address] [place] [address] May, Bipolar 1 disorder, mixed F3 1.60 [place] [address] [place] [id number] [address] [place] [address] May, Allergic rhinitis J30.9 [facility] [address] [facility] [id number] [address] [place] [id number] May, Bipolar 1 disorder, mixed F3 1.60 [facility] [address] [place] [id number] [address] [place] [id number] May, [facility] [address] [facility] [id number] [address] [place] [address] Apr, Allergic rhinitis J30.9 ; Dy sfunction of both eustachian tubes H69.83 ; History of bladder surgery Z98.890 and Cervicalgia M54.2 [facility] [address] [place] [id number] [address] [place] [address] Mar, Bipolar 1 disorder, mixed F3 1.60 [place] [address] [place] [id number] [address] [place] [address] Mar, [place] [address] [place] [id number] [place] [address] Mar, Slow transit constipation K5 9.01 ; Encounter for immunization Z23 and Generalized anxiety disorder F41.1 [place] [address] [facility] [id number] [address] [place] [id number] 27 Feb, 2018 Bipolar 1 disorder, mixed F3 1.60 [place] [address] [place] [id number] [address] [place] [id number] 26 Feb, 2018 Allergic rhinitis J30.9 [facility] [address] [place] [id number] [address] [place] [id number] 24 Feb, 2018 Bipolar 1 disorder, mixed F3 1.60 [place] [address] [place] [id number] [address] [place] [id number] 20 Feb, 2018 Bipolar 1 disorder, mixed F3 1.60 and Generalized anxiety disorder F41.1 [facility] [address] [facility] [id number] [address] [place] [id number] 13 Feb, 2018 Bipolar 1 disorder, mixed F3 1.60 [place] [address] [place] [id number] [address] [place] [id number] Feb, Allergic rhinitis J30.9 [facility] [address] [place] [id number] [address] [place] [id number] Feb, [facility] [address] [facility] [id number] [address] [place], [place] [address] Jan, Bipolar 1 disorder, mixed F3 1.60 [facility] [address] [facility] [id number] [address] [place] [address] Jan, Low back pain M54.5 ; Hyperl ipidemia, unspecified hyperlipidemia type E78.5 and Bipolar 1 disorder, mixed F31.60 [facility] [address] [facility] [id number] [address] [place] [address] Jan, Bipolar 1 disorder, mixed F3 1.60 [place] [address] [place] [id number] [address] [place] [id number] Jan, Bipolar 1 disorder, mixed F3 1.60 [place] [address] [place] [id number] [address] [place] [address] Jan, Bipolar 1 disorder, mixed F3 1.60 [place] [address] [place] [id number] [address] [place] [id number] Jan, Bipolar 1 disorder, mixed F3 1.60 [facility] [address] [place] [id number] [address] [place] [id number] Dec, Bipolar 1 disorder, mixed F3 1.60 ; Generalized anxiety disorder F41.1 and Other long-term (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 Z79.899 [place] [address] [facility] [id number] [address] [place] [address] Dec, Other termination clerk (current) dr ug therapy Z79.899 [facility] [address] [facility] [id number] [address] [place] [id number] Dec, Bipolar 1 disorder, mixed F3 1.60 [facility] [address] [facility] [id number] [address] [place] [address] Dec, Bipolar 1 disorder, mixed F3 1.60 [facility] [address] [address] Nov, Bipolar 1 disorder, mixed F3 1.60 [facility] [address] [place] [id number] Nov, Bipolar 1 disorder, mixed F3 1.60 [facility] [address] [address] Nov, Bipolar 1 disorder, mixed F3 1.60 [facility] [address] [place] [id number] [place] [address] Nov, Allergic rhinitis J30.9 [place] [address] [address] Nov, Allergic rhinitis J30.9 [place] [address] [address] Nov, [facility] [address] [address] Nov, Bipolar 1 disorder, mixed F3 1.60 [place] [address] [address] Nov, Fibromyalgia M79.7 and Aller gic rhinitis J30.9 [facility] [address] [address] October, Bipolar 1 disorder, mixed F3 1.60 [facility] [address] [address] October, Acute nasopharyngitis J00 [facility] [address] [address] October, Bitten or stung by nonvenomo us insect and other nonvenomous arthropods, initial encounter W57.XXXA and Insect bite (nonvenomous) of abdominal wall, initial encounter S30.861A [facility] [address] [address] October, Insect bite (nonvenomous) of abdominal wall, initial encounter S30.861A ; Bitten or stung by nonvenomous insect and other nonvenomous arthropods, initial encounter W57.XXXA ; Allergic rhinitis J30.9 and Low back pain M54.5 [facility] [address] [id number] [address] [place] [address] October, Bipolar 1 disorder, mixed F3 1.60 [facility] [address] [id number] [address] [place] [address] October, [facility] [address] [id number] [address] [place] [address] October, [facility] [address] [id number] [address] [place] [address] October, Bipolar 1 disorder, mixed F3 1.60 [facility] [address] [id number] [address] [place] [id number] Sep, Bipolar 1 disorder, mixed F3 1.60 [facility] [address] [id number] [address] [place] [id number] Sep, Other chronic pain G89.29 [facility] [address] [facility] [id number] [address] [place] [id number] Sep, [facility] [address] [id number] [address] [place] [id number] Sep, Bipolar 1 disorder, mixed F3 1.60 [facility] [address] [id number] [address] [place] [address] Sep, Allergic rhinitis J30.9 and Sciatica of left side M54.32 [facility] [address] [facility] [id number] [address] [place] [address] Sep, Bipolar 1 disorder, mixed F3 1.60 [facility] [address] [facility] [id number] [address] [place] [id number] Sep, Bipolar 1 disorder, mixed F3 1.60 and Generalized anxiety disorder F41.1 [facility] [address] [id number] [address] [place] [address] Aug, [facility] [address] [id number] [address] [place] [address] Aug, Bipolar 1 disorder, mixed F3 1.60 [facility] [address] [id number] [address] [place] [address] Aug, Bipolar 1 disorder, mixed F3 1.60 [facility] [address] [id number] [address] [place] [address] Aug, [facility] [address] [facility] [id number] [address] [place] [address] Aug, Generalized anxiety disorder F41.1 [facility] [address] [facility] [id number] [address] [place] [address] Aug, Bipolar 1 disorder, mixed F3 1.60 [facility] [address] [facility] [id number] [address] [place] [id number] Aug, Plantar wart of right foot B 07.0 [facility] [address] [facility] [id number] [address] [place] [id number] Aug, Bipolar 1 disorder, mixed F3 1.60 [facility] [address] [facility] [id number] [address] [place] [address] Jul, Bipolar 1 disorder, mixed F3 1.60 [facility] [address] [facility] [id number] [address] [place] [id number] Jul, [facility] [address] [facility] [id number] [address] [place] [address] 14 Jul, 2017 Bipolar 1 disorder, mixed F3 1.60 [facility] [address] [facility] [id number] [address] [place] [address] 09 Jul, 2017 Generalized anxiety disorder F41.1 [facility] [address] [facility] [id number] [address] [place] [id number] 07 Jul, 2017 Bipolar 1 disorder, mixed F3 1.60 [facility] [address] [place] [id number] [address] [place] [id number] 07 Jul, 2017 Acute left-sided low back pa in with left-sided sciatica M54.42 [place] [address] [place] [id number] [address] [place] [address] 05 Jul, 2017 Coccydynia M53.3 [place] [address] [place] [id number] [address] [place] [address] Jun, Bipolar 1 disorder, mixed F3 1.60 [facility] [address] [address] Jun, Acute nasopharyngitis J00 [place] [address] [address] Jun, Bipolar 1 disorder, mixed F3 1.60 [place] [address] [place] [id number] [address] [place] [address] Jun, Fibromyalgia M79.7 [place] [address] [address] Jun, Bipolar 1 disorder, mixed F3 1.60 [place] [address] [place] [id number] [place] [address] Jun, Fibromyalgia M79.7 and Bipol ar 1 disorder, mixed F31.60 [place] [address] [place] [id number] [address] [place] [address] May, Bipolar 1 disorder, mixed F3 1.60 ; Generalized anxiety disorder F41.1 and 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 [place] [address] [place] [id number] [address] [place] [address] May, Bipolar 1 disorder, mixed F3 1.60 [facility] [address] [place] [id number] [address] [place] [address] May, Cough R05 and Body aches R52 [facility] [address] [address] 10 May, 2017 Bladder spasm N32.89 [address] te cystitis without hematuria N30.00 [facility] [address] [address] 07 May, 2017 Bipolar 1 disorder, mixed F3 1.60 [place] [address] [address] 30 Apr, 2017 [place] [address] [address] Apr, Major depressive disorder, r ecurrent episode, moderate F33.1 and Encounter for immunization Z23 [place] [address] [address] Apr, Bipolar 1 disorder, mixed F3 1.60 [place] [address] [address] Apr, Bipolar 1 disorder, mixed F3 1.60 [place] [address] [address] 16 Apr, 2017 Bipolar 1 disorder, mixed F3 1.60 [place] [address] [address] 13 Apr, 2017 Yeast vaginitis B37.3 [place] [address] [address] 09 Apr, 2017 Bipolar 1 disorder, mixed F3 1.60 [facility] [address] [address] 07 Apr, 2017 [address]ulitis L03[address] for immunization Z23 [place] [address] [address] 02 Apr, 2017 Bipolar 1 disorder, mixed F3 1.60 [place] [address] [address] Mar, Bipolar 1 disorder, mixed F3 1.60 [place] [address] [place] [id number] [address] [place] [address] Mar, Bipolar 1 disorder, mixed F3 1.60 [place] [address] [place] [id number] [place] [address] Mar, Imbalance R26.89 [address] Encount er for immunization Z23 [place] [address] [place] [id number] [place] [address] Mar, Generalized anxiety disorder F41.1 [place] [address] [address] Mar, Bipolar 1 disorder, mixed F3 1.60 [place] [address] [place] [id number] [address] [place] [address] Mar, Generalized anxiety disorder F41.1 [place] [address] [place] [id number] [address] [place] [address] Mar, Bipolar 1 disorder, mixed F3 1.60 [place] [address] [place] [id number] [address] [place] [address] Mar, Bipolar 1 disorder, mixed F3 1.60 [place] [address] [place] [id number] [place] [id number] Feb, Bipolar 1 disorder, mixed F3 1.60 [place] [address] [place] [id number] [place] [address] Feb, Bipolar 1 disorder, mixed F3 1.60 and Generalized anxiety disorder F41.1 [place] [address] [place] [id number] [place] [address] Feb, Gastritis without bleeding, unspecified chronicity, unspecified gastritis type K29.70 ; Hammer toe of right foot M20.41 and Other viral warts B07.8 [place] [address] [place] [id number] [place] [address] Feb, Bipolar 1 disorder, mixed F3 1.60 [facility] [address] [facility] [id number] [address] [place] [phone] 13 Feb, 2017 Bipolar 1 disorder, mixed F3 1.60 [facility] [address] [facility] [id number] [address] [place] [phone] 05 Feb, 2017 Bipolar 1 disorder, mixed F3 1.60 [facility] [address] [facility] [place] [id number] [address] [place] [phone] Jan, Encounter for screening mamm ogram for breast cancer Z12.31 ; Other viral warts B07.8 and Allergic rhinitis J30.9 [facility] [address] [facility] [place] [id number] [address] [place] [phone] Jan, Bipolar 1 disorder, mixed F3 1.60 [facility] [address] [facility] [place] [id number] [address] [place] [id number] Jan, Bipolar 1 disorder, mixed F3 1.60 [facility] [address] [facility] [id number] [address] [place] [phone] 14 Jan, 2017 [facility] [address] [facility] [id number] [address] [place] [phone] Jan, Bipolar 1 disorder, mixed F3 1.60 [facility] [address] [facility] [id number] [address] [place] [phone] 04 Jan, 2017 Bipolar 1 disorder, mixed F3 1.60 [facility] [address] [facility] [id number] [address] [place] [phone] 02 Jan, 2017 Allergic rhinitis J30.9 ; He maturia R31.9 and Colon cancer screening Z12.11 [facility] [address] [facility] [id number] [address] [place] [phone] Dec, Bipolar 1 disorder, mixed F3 1.60 [facility] [address] [facility] [id number] [address] [place] [phone] 18 Dec, 2016 Bipolar 1 disorder, mixed F3 1.60 ; Generalized anxiety disorder F41.1 and Other long-term (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 Z79.899 [facility] [address] [facility] [place] [id number] [address] [place] [id number] Dec, Bipolar 1 disorder, mixed F3 1.60 [facility] [address] [facility] [place] [id number] [address] [place] [id number] Dec, Bipolar 1 disorder, mixed F3 1.60 [facility] [address] [place] [id number] [address] [place] [id number] Dec, Bipolar 1 disorder, mixed F3 1.60 [facility] [address] [place] [id number] [address] [place] [id number] Dec, Low back pain M54.5 and Recu rrent urinary tract infection N39.0 [facility] [address] [place] [id number] [address] [place] [id number] Nov, Bipolar 1 disorder, mixed F3 1.60 [facility] [address] [place] [id number] [address] [place] [id number] Nov, Bipolar 1 disorder, mixed F3 1.60 [facility] [address] [place] [id number] [address] [place] [id number] Nov, Bipolar 1 disorder, mixed F3 1.60 [facility] [address] [place] [id number] [address] [place] [id number] Nov, Bipolar 1 disorder, mixed F3 1.60 [facility] [address] [place] [id number] [address] [place] [id number] Nov, [facility] [address] [place] [id number] [address] [place] [id number] Nov, Anesthesia of skin R20.0 ; F requent UTI N39.0 ; Tobacco abuse Z72.0 and Colon cancer screening Z12.11 [facility] [address] [place] [id number] [address] [place] [id number] Nov, Bipolar 1 disorder, mixed F3 1.60 [facility] [address] [place] [id number] [address] [place] [id number] October, Bipolar 1 disorder, mixed F3 1.60 [facility] [address] [place] [id number] [address] [place] [id number] October, Bipolar 1 disorder, mixed F3 1.60 [facility] [address] [facility] [place] [id number] [address] [place] [id number] October, Bipolar 1 disorder, mixed F3 1.60 [facility] [address] [place] [id number] [place] [address] October, Bipolar 1 disorder, mixed F3 1.60 [facility] [address] [place] [id number] [address] [place] [id number] October, Bipolar 1 disorder, mixed F3 1.60 [facility] [address] [place] [id number] [place] [address] October, Cervicalgia M54.2 and Bipola r 1 disorder, mixed F31.60 [facility] [address] [place] [id number] [address] [place] [id number] October, Hypertension I10 ; Hyperlipi demia, unspecified hyperlipidemia type E78.5 and Family history of thyroid disease Z83.49 [facility] [address] [place] [id number] [place] [address] October, [facility] [address] [place] [id number] [address] [place] [id number] October, Hypertension I10 ; Hyperlipi demia, unspecified hyperlipidemia type E78.5 and Family history of thyroid problem Z83.49 [facility] [address] [place] [id number] [address] [place] [id number] October, Bipolar 1 disorder, mixed F3 1.60 [facility] [address] [place] [id number] [address] [place], [place] [id number] Sep, Bipolar 1 disorder, mixed F3 1.60 [facility] [address] [place] [id number] [address] [place] [id number] Sep, Bipolar 1 disorder, mixed F3 1.60 [facility] [address] [place] [id number] [address] [place] [id number] Sep, Bipolar 1 disorder, mixed F3 1.60 [facility] [address] [place] [id number] [address] [place] [address] Sep, History of colon polyps Z86. 010 and Hematochezia K92.1 [facility] [address] [place] [id number] [address] [place] [address] Sep, Major depressive disorder, r ecurrent episode, moderate F33.1 [facility] [address] [place] [id number] [address] [place] [address] Sep, Bipolar 1 disorder, mixed F3 1.60 [facility] [address] [place] [id number] [place] [address] Aug, Hot flashes due to menopause N95.1 [facility] [address] [place] [id number] [address] [place] [address] Aug, Bipolar 1 disorder, mixed F3 1.60 [facility] [address] [place] [id number] [address] [place] [id number] Aug, [facility] [address] [place] [id number] [place] [address] Aug, Bipolar 1 disorder, mixed F3 1.60 [facility] [address] [place] [id number] [address] [place] [phone] Aug, Bipolar 1 disorder, mixed F3 1.60 [facility] [address] [place] [id number] [address] [place] [address] Aug, Hot flashes due to menopause N95.1 ; Cervicalgia M54.2 and Ataxia R27.0 [facility] [address] [place] [id number] [address] [place] [id number] Jul, Bipolar 1 disorder, mixed F3 1.60 [facility] [address] [place] [id number] [address] [place] [address] Jul, Bipolar 1 disorder, mixed F3 1.60 [facility] [address] Jul, Bipolar 1 disorder, mixed F3 1.60 [facility] [address] 13 Jul, 2016 Bipolar 1 disorder, mixed F3 1.60 [facility] [place] [address] Jul, Bipolar 1 disorder, mixed F3 1.60 [facility] [place] [address] 08 Jul, 2016 Cervicalgia M54.2 ; Tremor R 25.1 ; Hearing abnormally acute, unspecified laterality H93.239 ; Alopecia L65.9 ; Encounter for immunization Z23 and Family history of thyroid disease Z83.49 [place] [address] [place] [address] Jul, Bipolar 1 disorder, mixed F3 1.60 [facility] [address] Jun, [facility] [place] [address] Jun, Hearing disorder, unspecifie d laterality H93.299 [facility] [address] Jun, Bipolar 1 disorder, mixed F3 1.60 [place] [address] [place] [address] Jun, Bipolar 1 disorder, mixed F3 1.60 [facility] [place] [address] Jun, Allergic rhinitis J30.9 [facility] [place] [address] [address] Jun, Bipolar 1 disorder, mixed F3 1.60 [facility] [address] [id number] [address] [place] [address] Jun, Bipolar 1 disorder, mixed F3 1.60 [facility] [address] [id number] [address] [place] [address] Jun, Allergic rhinitis J30.9 [facility] [address] [id number] [address] [place] [id number] Jun, Allergic rhinitis J30.9 [facility] [address] [id number] [address] [place] [id number] Jun, Bipolar 1 disorder, mixed F3 1.60 [facility] [address] [id number] [address] [place] [id number] May, Bipolar 1 disorder, mixed F3 1.60 [facility] [address] [id number] [address] [place] [id number] May, Bipolar 1 disorder, mixed F3 1.60 [facility] [address] [id number] [address] [place] [address] May, [facility] [address] [id number] [address] [place] [address] May, Bipolar 1 disorder, mixed F3 1.60 [facility] [address] [id number] [address] [place] [address] May, Bipolar 1 disorder, mixed F3 1.60 [facility] [address] [id number] [address] [place] [address] May, [facility] [address] [id number] [address] [place] [address] May, [facility] [address] [id number] [address] [place] [address] May, [facility] [address] [id number] [address] [place] [address] May, Abdominal pain, unspecified location R10.9 [facility] [address] [address] May, [facility] [address] [address] Apr, Hematuria R31.9 ; Ataxia R27 .0 and Hearing loss, unspecified laterality H91.90 [facility] [address] [address] Apr, Bipolar 1 disorder, mixed F3 1.60 [facility] [address] [address] Apr, Acute effusion of both middl e ears H65.193 [place] [address] [address] Apr, Hematuria R31.9 and Pyelonep hritis N12 [place] [address] [address] Apr, [facility] [address] [id number] Mar, Bipolar 1 disorder, mixed F3 1.60 [place] [address] [address] Mar, [place] [address] [address] Mar, Bipolar 1 disorder, mixed F3 1.60 [facility] [address] [address] Mar, Bipolar 1 disorder, mixed F3 1.60 [place] [address] [address] Mar, Encounter for immunization Z 23 and Gastritis without bleeding, unspecified chronicity, unspecified gastritis type K29.70 [facility] [address] [address] 05 Mar, 2016 Bipolar 1 disorder, mixed F3 1.60 and Grief F43.20 [place] [address] [facility] [place] [id number] [address] [place] [address] 05 Mar, 2016 Gastritis without bleeding, unspecified chronicity, unspecified gastritis type K29.70 [facility] [address] [place] [id number] [address] [place] [address] 05 Mar, 2016 Bipolar 1 disorder, mixed F3 1.60 [facility] [place] [address] [place] [id number] [address] [place], [place] [id number] Mar, Gastritis without bleeding, unspecified chronicity, unspecified gastritis type K29.70 [facility] [address] [place] [id number] [address] [place] [address] Mar, [facility] [address] [place] [id number] [place] [address] Feb, Bipolar 1 disorder, mixed F3 1.60 [facility] [place] [address] [place] [id number] Feb, Bipolar 1 disorder, mixed F3 1.60 and Grief F43.20 [facility] [place] [address] [place] [id number] [address] [place] [address] Feb, Gastritis without bleeding, unspecified chronicity, unspecified gastritis type K29.70 [facility] [place] [address] [place] [id number] [address] [place] [id number] 14 Feb, 2016 Bipolar 1 disorder, mixed F3 1.60 [facility] [address] [facility] [place] [id number] [address] [place] [address] Feb, Gastroesophageal reflux dise ase, esophagitis presence not specified K21.9 [place] [address] [facility] [place] [id number] [address] [place] [address] Jan, Bipolar 1 disorder, mixed F3 1.60 [facility] [place] [address] [place] [id number] [address] [place], [place] [id number] Jan, Bipolar 1 disorder, mixed F3 1.60 and Unsteady gait R26.81 [facility] [address] [place] [id number] [address] [place] [id number] Jan, Bipolar 1 disorder, mixed F3 1.60 [facility] [address] [place] [id number] [address] [place] [address] Jan, Bipolar 1 disorder, mixed F3 1.60 and 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 [facility] [address] [place] [id number] [address] [place] [address] Jan, Bipolar 1 disorder, mixed F3 1.60 [facility] [address] [place] [id number] [address] [place] [address] Jan, Bipolar 1 disorder, mixed F3 1.60 [facility] [address] [place] [id number] [place] [address] Jan, Bipolar 1 disorder, mixed F3 1.60 ; Grief F43.20 and Other long-term (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 Z79.899 [facility] [address] [place] [id number] [address] [place] [address] Jan, Bipolar 1 disorder, mixed F3 1.60 [facility] [address] [place] [id number] [address] [place] [address] Dec, [facility] [address] [address] Dec, Bipolar 1 disorder, mixed F3 1.60 ; Vitamin D deficiency, unspecified E55.9 ; H/O allergic rhinitis Z87.09 ; Other chronic pain G89.29 and Dorsalgia, unspecified M54.9 [facility] [address] [place] [id number] [address] [place] [id number] Dec, [facility] [address] [place] [id number] [place] [address] Dec, Bipolar 1 disorder, mixed F3 1.60 [facility] [address] [place] [id number] [address] [place] [address] Dec, Major depressive disorder, r ecurrent episode, moderate F33.1 [place] [address] [facility] [place] [id number] [address] [place] [address] Dec, Major depressive disorder, r ecurrent episode, moderate F33.1 [facility] [address] [facility] [place] [id number] [address] [place] [address] Nov, [facility] [address] [facility] [place] [id number] [address] [place] [address] Nov, Bipolar 1 disorder, mixed F3 1.60 [place] [address] [facility] [place] [id number] [address] [place] [address] Nov, Major depressive disorder, r ecurrent episode, moderate F33.1 [place] [address] [facility] [place] [id number] [address] [place] [address] Nov, Cervicalgia M54.2 ; Arthralg ia of hip, unspecified laterality M25.559 ; Allergic rhinitis J30.9 and Hormone replacement therapy Z79.890 [facility] [address] [facility] [place] [id number] [address] [place] [address] Nov, Other seasonal allergic rhin itis J30.2 [place] [address] [facility] [place] [id number] [address] [place] [address] October, Major depressive disorder, r ecurrent episode, moderate F33.1 [place] [address] [facility] [place] [id number] [address] [place] [address] October, Major depressive disorder, r ecurrent episode, moderate F33.1 and Arthralgia of hip, unspecified laterality M25.559 [place] [address] [facility] [place] [id number] [address] [place] [address] October, Grief F43.20 ; Hypertension I10 ; Hyperlipidemia, unspecified hyperlipidemia type E78.5 ; Other chronic pain G89.29 and Allergic rhinitis, unspecified allergic rhinitis type J30.9 [facility] [address] [facility] [place] [id number] [address] [place] [address] October, Major depressive disorder, r ecurrent episode, moderate F33.1 [facility] [address] [facility] [place] [id number] [address] [place] [id number] Sep, Major depressive disorder, r ecurrent episode, moderate F33.1 [facility] [address] [facility] [place] [id number] [address] [place] [id number] Sep, [facility] [address] [facility] [place] [id number] [address] [place] [address] Sep, Major depressive disorder, r ecurrent episode, moderate F33.1 [facility] [address] [facility] [place] [id number] [address] [place] [address] Sep, Grief F43.20 [place] [address] [facility] [place] [id number] [address] [place] [address] Aug, Major depressive disorder, r ecurrent episode, moderate F33.1 [place] [place] [address] [place] [id number] [address] [place] [address] Aug, Bipolar 1 disorder, mixed F3 1.60 [facility] [address] [facility] [place] [id number] [address] [place] [address] Aug, Allergic rhinitis J30.9 ; Ce rvicalgia M54.2 and Low back pain M54.5 [place] [address] [facility] [place] [id number] [address] [place] [address] Aug, Major depressive disorder, r ecurrent episode, moderate F33.1 [facility] [address] [facility] [place] [id number] [address] [place] [address] Aug, Sinusitis J32.9 and Tobacco 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 [facility] [address] [facility] [place] [id number] [address] [place] [address] Aug, [facility] [address] [facility] [place] [id number] [address] [place] [address] Aug, Depressive disorder, not els ewhere classified F32.9 ; Hormone replacement therapy Z79.[address] scan, head R93.0 [place] [place] [address] [id number] [address] [place] [address] Aug, Major depressive disorder, r ecurrent episode, moderate F33.1 [facility] [address] [facility] [place] [id number] [address] [place] [id number] Jul, Major depressive disorder, r ecurrent episode, moderate F33.1 [facility] [address] [facility] [place] [id number] [address] [place] [address] Jul, Abdominal pain R10.9 and Hyp ertension I10 [facility] [address] [facility] [place] [id number] [address] [place] [id number] Jul, [facility] [address] [facility] [place] [id number] [address] [place] [id number] Jul, Major depressive disorder, r ecurrent episode, moderate F33.1 [facility] [address] [place] [id number] [address] [place] [address] Jul, [facility] [address] [facility] [place] [id number] [address] [place] [id number] Jul, [facility] [address] [place] [id number] [address] [place] [address] Jun, [facility] [address] [place] [id number] [address] [place] [address] Jun, Depressive disorder, not els ewhere classified F32.9 [facility] [address] [facility] [place] [id number] [address] [place] [id number] Jun, [facility] [address] [facility] [place] [id number] [address] [place] [id number] Jun, [facility] [address] [facility] [place] [id number] [address] [place] [id number] Jun, Arthralgia of hip, unspecifi ed laterality M25.559 ; Bruising, spontaneous R23.3 and Night sweats R61 [facility] [address] [facility] [place] [id number] [address] [place] [address] Jun, [facility] [address] [id number] [address] [place] [address] Jun, [facility] [address] [id number] [address] [place] [address] May, [facility] [address] [id number] [address] [place] [id number] May, Myalgia M79.1 and Screening, lipid Z13.220 [facility] [address] [id number] [address] [place] [address] Apr, Status post cervical spinal fusion Z98.1 ; Fibromyalgia M79.7 and Unsteady gait R26.81 [facility] [address] [id number] [address] [place] [address] Nov, [facility] [address] [id number] [address] [place] [address] Nov, [facility] [address] [id number] [address] [place] [id number] October, [facility] [address] [facility] [place] [id number] [address] [place] [address] October, [facility] [address] [id number] [address] [place] [id number] October, [facility] [address] [id number] [address] [place] [id number] October, [facility] [address] [id number] [address] [place] [id number] October, [facility] [address] [facility] [place] [id number] [address] [place] [address] October, Dysuria 788.1 ; Nausea 787.0 2 and Urinary tract infection 599.0 [facility] [address] [id number] [address] [place] [id number] Sep, [facility] [address] [id number] [facility] [place] [address] 13 Sep, 2014 [facility] [address] [id number] [address] [place] [address], [place] [address] 25 Aug, 2014 [facility] [address] [id number] [address] [place] [address], [place] [address] 25 Aug, 2014 [facility] [address] [id number] [address] [place] [address], [place] [address] 24 Aug, 2014 [facility] [address] [id number] [address] [place] [address], [place] [address] 24 Aug, 2014 [facility] [address] [id number] [address] [place] [address], [place] [address] 23 Aug, 2014 [facility] [address] [id number] [address] [place] [address], [place] [address] 19 Aug, 2014 [facility] [address] [id number] [address] [place] [address], [place] [address] 19 Aug, 2014 [facility] [address] [id number] [address] [place] [address], [place] [address] 19 Aug, 2014 [facility] [address] [id number] [address] [place] [address], [place] [address] 19 Aug, 2014 [facility] [address] [id number] [address] [place] [address], [place] [address] 18 Aug, 2014 [facility] [address] [id number] [address] [place] [address], [place] [address] 18 Aug, 2014 [facility] [address] [id number] [address] [place] [address], [place] [address] 13 Aug, 2014 [facility] [address] [id number] [address] [place] [address], [place] [address] 13 Aug, 2014 [facility] [address] [id number] [address] [place] [address], [place] [address] 11 Aug, 2014 [facility] [address] [id number] [address] [place] [address], [place] [address] Aug, [facility] [address] [id number] [address] [place] [address], [place] [address] Aug, [facility] [address] [id number] [address] [place] [address], [place] [address] Aug, [facility] [address] [id number] [address] [place] [address], [place] [address] Aug, 2014 [facility] [address] [id number] [address] [place] [address], [place] [address] Aug, 2014 [facility] [address] [id number] [address] [place] [address], [place] [address] Aug, [facility] [address] [id number] [address] [place] [address], [place] [address] Aug, [facility] [address] [id number] [address] [place] [address], [place] [address] Aug, [facility] [address] [id number] [address] [place] [address], [place] [address] Jul, 2014 [facility] [address] [id number] [address] [place] [address], [place] [address] Jul, [facility] [address] [id number] [address] [place] [address], [place] [address] Jul, [facility] [address] [id number] [address] [place] [address], [place] [address] Jul, 2014 [facility] [address] [id number] [address] [place] [id number] Jul, 2014 [facility] [address] [id number] [address] [place] [address], [place] [address] Jul, [facility] [address] [id number] [address] [place] [address], [place] [address] Jul, 2014 [facility] [address] [id number] [address] [place] [address], [place] [address] Jul, 2014 [facility] [address] [id number] [address] [place] [address], [place] [address] Jul, 2014 [facility] [address] [id number] [address] [place] [address], [place] [address] Jul, 2014 [facility] [address] [id number] [address] [place] [address], [place] [address] Jul, 2014 [facility] [address] [id number] [address] [place] [address], [place] [address] Jul, 2014 [facility] [address] [id number] [address] [place] [address], [place] [address] Jul, [facility] [address] [id number] [address] [place] [address], [place] [address] Jul, [facility] [address] [id number] [address] [place] [address], [place] [address] Jun, [facility] [address] [id number] [address] [place] [address], [place] [address] Jun, [facility] [address] [id number] [address] [place] [address], [place] [address] Jun, [facility] [address] [id number] [address] [place] [address], [place] [address] Jun, [facility] [address] [id number] [address] [place] [address], [place] [address] Jun, [facility] [address] [id number] [address] [place] [address], [place] [address] Jun, [facility] [address] [id number] [address] [place] [address], [place] [address] May, [facility] [address] [id number] [address] [place] [address], [place] [address] May, [facility] [address] [id number] [address] [place] [address], [place] [address] May, [facility] [address] [id number] [address] [place] [address], [place] [address] May, [facility] [address] [id number] [address] [place] [address], [place] [address] May, [facility] [address] [id number] [address] [place] [address], [place] [address] May, [facility] [address] [id number] [address] [place] [address], [place] [address] Apr, [facility] [address] [id number] [address] [place] [address], [place] [address] Apr, [facility] [address] [id number] [address] [place] [address], [place] [address] Apr, [facility] [address] [id number] [address] [place] [address], [place] [address] Apr, [facility] [address] [id number] [address] [place] [address], [place] [address] Apr, [facility] [address] [id number] [address] [place] [address], [place] [address] Apr, [facility] [address] [id number] [address] [place] [address], [place] [address] Mar, [facility] [address] [id number] [address] [place] [address] Mar, [facility] [address] [id number] [address] [place] [address] Mar, [facility] [address] [id number] [address] [place] [address] Mar, [facility] [address] [id number] [address] [place] [address], [place] [address] Mar, [facility] [address] [id number] [address] [place] [address] Mar, [facility] [address] [id number] [address] [place] [address] Mar, [facility] [address] [id number] [address] [place] [address], [place] [address] Mar, [facility] [address] [id number] [address] [place] [address], [place] [address] Mar, [facility] [address] [id number] [address] [place] [address], [place] [address] Mar, [facility] [address] [id number] [address] [place] [address], [place] [address] Mar, [facility] [address] [id number] [address] [place] [address], [place] [address] Mar, [facility] [address] [id number] [address] [place] [address], [place] [address] 30 Feb, 2014 [facility] [address] [id number] [address] [place] [address], [place] [address] 29 Feb, 2014 [facility] [address] [id number] [address] [place] [address], [place] [address] 29 Feb, 2014 [facility] [address] [id number] [address] [place] [address], [place] [address] 23 Feb, 2014 [facility] [address] [id number] [address] [place] [address], [place] [address] 23 Feb, 2013 [facility] [address] [id number] [address] [place] [address], [place] [address] 08 Feb, 2014 [facility] [address] [id number] [address] [place] [address], [place] [address] 08 Feb, 2014 [facility] [address] [id number] [address] [place] [address], [place] [address] Jan, [facility] [address] [id number] [address] [place] [address], [place] [address] Jan, [facility] [address] [id number] [address] [place] [address], [place] [address] Jan, [facility] [address] [id number] [address] [place] [address], [place] [address] Dec, [facility] [address] [id number] [address] [place] [address], [place] [address] Dec, [facility] [address] [id number] [address] [place] [address], [place] [address] Dec, [facility] [address] [id number] [address] [place] [address], [place] [address] Dec, [facility] [address] [id number] [address] [place] [address], [place] [address] Sep, [facility] [address] [id number] [address] [place] [address], [place] [address] Sep, [facility] [address] [id number] [address] [place] [address], [place] [address] Sep, [facility] [address] [id number] [address] [place] [address], [place] [address] Sep, [facility] [address] [id number] [address] [place] [address], [place] [address] Sep, [facility] [address] [id number] [address] [place] [address], [place] [address] Sep, [facility] [address] [id number] [address] [place] [address], [place] [address] Sep, [facility] [address] [id number] [address] [place] [address], [place] [address] Sep, [facility] [address] [id number] [address] [place] [address], [place] [address] Aug, [facility] [address] [id number] [address] [place] [address], [place] [address] Aug, [facility] [address] [id number] [address] [place] [address], [place] [address] May, [facility] [address] [id number] [address] [place] [address], [place] [address] May, [facility] [address] [id number] [address] [place] [address], [place] [address] Apr, [facility] [address] [id number] [address] [place] [address], [place] [address] Apr, [facility] [address] [id number] [address] [place] [address], [place] [address] Apr, [facility] [address] [id number] [address] [place] [address], [place] [address] Apr, [facility] [address] [id number] [address] [place] [address], [place] [address] Apr, [facility] [address] [id number] [address] [place] [address], [place] [address] Apr, [facility] [address] [id number] [address] [place] [address], [place] [address] May, [facility] [address] [id number] [address] [place] [address], [place] [address] May, [facility] [address] [id number] [address] [place] [address], [place] [address] May, [facility] [address] [id number] [address] [place] [address], [place] [address] May, [facility] [address] [id number] [address] [place] [address], [place] [address] May, [facility] [address] [id number] [address] [place] [address], [place] [address] May, [facility] [address] [id number] [address] [place] [address], [place] [address] Apr, [facility] [address] [id number] [address] [place] [address], [place] [address] Apr, [facility] [address] [id number] [address] [place] [address], [place] [address] Apr, [facility] [address] [id number] [address] [place] [address], [place] [address] Apr, [facility] [address] [id number] [address] [place] [address], [place] [address] 08 Apr, 2012 [facility] [address] [id number] [address] [place] [address], [place] [address] 08 Apr, 2012 [facility] [address] [id number] [address] [place] [address], [place] [address] Apr, [facility] [address] [id number] [address] [place] [address], [place] [address] Apr, [facility] [address] [id number] [address] [place] [address], [place] [address] Apr, [facility] [address] [id number] [address] [place] [address], [place] [address] Apr, [facility] [address] [id number] [address] [place] [address], [place] [address] Mar, [facility] [address] [id number] [address] [place] [address], [place] [address] Mar, [facility] [address] [id number] [address] [place] [address], [place] [address] Mar, [facility] [address] [id number] [address] [place] [address], [place] [address] Mar, [facility] [address] [id number] [address] [place] [address], [place] [address] Mar, [facility] [address] [id number] [address] [place] [address], [place] [address] Mar, [facility] [address] [id number] [address] [place] [address], [place] [address] Mar, [facility] [address] [id number] [address] [place] [address], [place] [address] Mar, [facility] [address] [id number] [address] [place] [address], [place] [address] Mar, [facility] [address] [id number] [address] [place] [address], [place] [address] Feb, [facility] [address] [id number] [address] [place] [address], [place] [address] 16 Feb, 2012 [facility] [address] [id number] [address] [place] [address], [place] [address] Feb, [facility] [address] [id number] [address] [place] [address], [place] [address] Jan, [facility] [address] [id number] [address] [place] [address], [place] [address] Jan, [facility] [address] [id number] [address] [place] [address], [place] [address] Jan, [facility] [address] [id number] [address] [place] [address], [place] [address] Jan, [facility] [address] [id number] [address] [place] [address], [place] [address] Jan, [facility] [address] [id number] [address] [place] [address], [place] [address] Jan, [facility] [address] [id number] [address] [place] [address], [place] [address] Jan, [facility] [address] [id number] [address] [place] [address], [place] [address] Jan, [facility] [address] [id number] [address] [place] [address], [place] [address] Jan, [facility] [address] [id number] [address] [place] [address], [place] [address] Jan, [facility] [address] [id number] [address] [place] [address], [place] [address] Dec, [facility] [address] [id number] [address] [place] [address], [place] [address] Dec, [facility] [address] [id number] [address] [place] [address], [place] [address] Dec, [facility] [address] [id number] [address] [place] [address], [place] [address] 17 Dec, 2011 [facility] [address] [id number] [address] [place] [address], [place] [address] Nov, [facility] [address] [id number] [address] [place] [address], [place] [address] 08 Nov, 2011 [facility] [address] [id number] [address] [place] [address], [place] [address] Nov, [facility] [address] [id number] [address] [place] [address], [place] [address] October, [facility] [address] [id number] [address] [place] [address], [place] [address] October, [facility] [address] [id number] [address] [place] [address], [place] [address] October, [facility] [address] [id number] [address] [place] [address], [place] [address] October, [facility] [address] [id number] [address] [place] [address], [place] [address] October, [facility] [address] [id number] [address] [place] [address], [place] [address] October, [facility] [address] [id number] [address] [place] [address], [place] [address] Aug, [facility] [address] [id number] [address] [place] [address], [place] [address] Mar, [facility] [address] [id number] [address] [place] [address], [place] [address] Nov, [facility] [address] [id number] [address] [place] [address], [place] [address] May, [facility] [address] [id number] [address] [place] [address], [place] [address] May, [facility] [address] [id number] [address] [place] [address], [place] [address] Apr, [facility] [address] [facility] [id number] [address] [address] Mar, [facility] [address] [facility] [id number] [address] [place] [address] Mar, IMMUNIZATIONS No Known Immunizations SOCIAL HISTORY Never Assessed REASON FOR VISIT PLAN OF CARE VITAL SIGNS Height 64 in 2014-03-16 Weight 155.79 lbs 2014-03-16 Temperature 98.1 degrees Fahrenheit 2014-03-16 Heart Rate 92 bpm 2014-03-16 Respiratory Rate 18 2014-03-16 Blood pressure systolic 130 mmHg 2014-03-16 Blood pressure diastolic 84 mmHg 2014-03-16 MEDICATIONS Unknown Medications RESULTS No Results PROCEDURES Procedure Date Ordered Result Body Site URINE CULTURE/COLONY COUNT Mar 16, 2014 URINALYSIS, AUTO, W/O SCOPE Mar 16, 2014 INSTRUCTIONS MEDICATIONS ADMINISTERED No Known Medications MEDICAL (GENERAL) HISTORY Type Description Date Medical History [facility] done [...]
--- OUTSIDE RECORDS SUMMARY | 2019-06-19 05:08 | XMS REPORT ---
Author Author Sydnie HANCOCK [facility] Address [address] [place] [address] Care Team Providers Care Night Clerk Name Role Phone NAHOMY HANCOCK Unavailable PROBLEMS Type Condition ICD9-CM Code NCX12-VD Code Onset Dates Condition S tatus SNOMED Code Problem Age-related osteoporosis without current pathological fracture M81.0 Active 77124436 Problem Sensorineural hearing loss (SNHL) of both ears H90 .3 Active 004102770 Problem Abnormal CT scan, head R93.0 Active 749684719 Problem Arthralgia of hip, unspecified laterality M25.559 Active 43530438 Problem Bruising, spontaneous R23.3 Active 170209985 Problem Hypertension I10 Active 4577604 3 Problem Night sweats R61 Active 0102362 0 Problem Imbalance R26.89 Active 526868530 Problem Hammer toe of right foot M20.41 Activ e 653792561 Problem Hormone replacement therapy Z79.890 Ac tive 030553045 Problem Bipolar 1 disorder, mixed F31.60 Acti ve 97363815 Problem Gastritis without bleeding, unspecified chronicity, unspecified gastritis type K29.70 Active 590051351 Problem Ataxia R27.0 Active 59501187 Problem Hearing loss, unspecified laterality H91.90 Active 16023837 Problem History of colon polyps Z86.010 Active 376700668 Problem Allergic rhinitis J30.9 Active 61 635809 Problem Hematuria, unspecified type R31.9 Ac tive 63740959 Problem Generalized anxiety disorder F41.1 A ctive 89895753 Problem Major depressive disorder, recurrent episode, moderate F33.1 Active 505929531 Problem Fibromyalgia M79.7 Active 6719156 7 Problem Bladder spasm N32.89 Active 737506 006 Problem Tobacco use disorder F17.200 Active 862144417 Problem Other chronic pain G89.29 Active 8 0764469 Problem Post menopausal syndrome N95.1 Activ e 797436592 Problem Grief F43.20 Active 23497694 Problem Hyperlipidemia, unspecified hyperlipidemia type E7 8.5 Active 53029510 Problem Acute left-sided low back pain with left-sided sciatica M54.42 Active 772872716 Problem Sciatica of left side M54.32 Active 99127665 Problem Plantar wart of right foot B07.0 Act mitchell [id number] Problem Slow transit constipation K59.01 Acti ve 90826025 ALLERGIES No Information ENCOUNTERS Encounter Location Date Diagnosis [facility] [id number] [place] [address] Jan, [facility] [address] [place] [id number] [place] [address] Jan, [facility] [address] [address] Jan, [facility] [address] [address] Jan, [facility] [address] [address] Dec, Normal pelvic exam Z01.419 [place] [address] [address] Dec, Bipolar 1 disorder, mixed F3 1.60 [facility] [address] [place] [address] [id number] [place] [address] Nov, Bipolar 1 disorder, mixed F3 1.60 [facility] [address] [place] [id number] [place] [address] Nov, Bipolar 1 disorder, mixed F3 1.60 ; Generalized anxiety disorder F41.1 ; Tobacco use disorder F17.200 and 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 [id number] [address] [place] [address] October, Bipolar 1 disorder, mixed F3 1.60 [place] [address] [facility] [id number] [address] [place] [address] October, Bipolar 1 disorder, mixed F3 1.60 [place] [address] [facility] [id number] [address] [place] [address] October, [place] [address] [facility] [id number] [address] [place] [address] October, Bipolar 1 disorder, mixed F3 1.60 ; Generalized anxiety disorder F41.1 and Tobacco use disorder F17.200 [place] [address] [facility] [id number] [address] [place] [address] Sep, [place] [address] [place] [id number] [place] [address] Sep, Encounter for Medicare annua wellness exam Z00.00 ; Major depressive disorder, recurrent episode, moderate F33.1 ; Allergic rhinitis J30.9 ; Bipolar 1 disorder, mixed F31.60 ; Fibromyalgia M79.7 ; Hyperlipidemia, unspecified hyperlipidemia type E78.5 ; Hormone replacement therapy Z79.890 ; Encounter for screening for lung cancer Z12.2 and Tobacco use disorder F17.200 [place] [address] [facility] [id number] [address] [place] [address] Sep, Bipolar 1 disorder, mixed F3 1.60 [place] [address] [facility] [id number] [address] [place] [address] Sep, Other chronic pain G89.29 ; Hyperlipidemia, unspecified hyperlipidemia type E78.5 ; Breast cancer screening Z12.31 and Post menopausal syndrome N95.1 [place] [address] [facility] [id number] [address] [place] [address] Sep, Bipolar 1 disorder, mixed F3 1.60 [place] [address] [place] [id number] [place] [address] Sep, Bipolar 1 disorder, mixed F3 1.60 ; Generalized anxiety disorder F41.1 and Tobacco use disorder F17.200 [place] [address] [place] [id number] Sep, Gastritis without bleeding, unspecified chronicity, unspecified gastritis type K29.70 [place] [address] [address] Sep, Exercise counseling Z71.82 [place] [address] [address] Aug, Exercise counseling Z71.82 [place] [address] [place] 8[address] Aug, Bipolar 1 disorder, mixed F3 1.60 [place] [address] [address] Aug, Exercise counseling Z71.82 [place] [address] [address] Aug, Bipolar 1 disorder, mixed F3 1.60 [place] [address] [address] Aug, Gastritis without bleeding, unspecified chronicity, unspecified gastritis type K29.70 ; Tobacco abuse Z72.0 ; Generalized anxiety disorder F41.1 and Weight gain R63.5 [place] [address] [address] Aug, Bipolar 1 disorder, mixed F3 1.60 ; Generalized anxiety disorder F41.1 and Tobacco use disorder F17.200 [place] [address] [address] Jul, Bipolar 1 disorder, mixed F3 1.60 [place] [address] [address] Jul, [place] [address] [address] Jul, Bipolar 1 disorder, mixed F3 1.60 [facility] [address] [facility] [id number] [address] [place] [address] Jul, Allergic rhinitis J30.9 ; Ma darion depressive disorder, recurrent episode, moderate F33.1 and Tobacco 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 [facility] [address] [facility] [id number] [address] [place] [address] Jun, [facility] [address] [facility] [id number] [address] [place] [address] Jun, [facility] [address] [facility] [id number] [address] [place] [address] Jun, Bipolar 1 disorder, mixed F3 1.60 [place] [address] [place] [id number] [place] [address] Jun, Bipolar 1 disorder, mixed F3 1.60 [place] [address] [place] [id number] [place] [address] Jun, Bipolar 1 disorder, mixed F3 1.60 [place] [address] [place] [id number] [place] [address] Jun, Generalized anxiety disorder F41.1 ; Tobacco abuse Z72.0 and Major depressive disorder, recurrent episode, moderate F33.1 [place] [address] [place] [id number] [place] [address] May, Bipolar 1 disorder, mixed F3 1.60 [facility] [address] [place] [id number] [place] [address] May, Bipolar 1 disorder, mixed F3 1.60 and Generalized anxiety disorder F41.1 [place] [address] [place] [id number] [place] [address] May, Bipolar 1 disorder, mixed F3 1.60 [place] [address] [place] [id number] [place] [address] May, Allergic rhinitis J30.9 [facility] [address] [facility] [id number] [address] [place] [address] May, Bipolar 1 disorder, mixed F3 1.60 [facility] [address] [place] [id number] [place] [address] May, [facility] [address] [facility] [id number] [address] [place] [address] Apr, Allergic rhinitis J30.9 ; Dy sfunction of both eustachian tubes H69.83 ; History of bladder surgery Z98.890 and Cervicalgia M54.2 [facility] [address] [place] [id number] [place] [address] Mar, Bipolar 1 disorder, mixed F3 1.60 [place] [address] [place] [id number] [place] [address] Mar, [place] [address] [place] [id number] [place] [address] Mar, Slow transit constipation K5 9.01 ; Encounter for immunization Z23 and Generalized anxiety disorder F41.1 [place] [address] [facility] [id number] [address] [place] [address] 27 Feb, 2018 Bipolar 1 disorder, mixed F3 1.60 [place] [address] [place] [id number] [place] [address] 26 Feb, 2018 Allergic rhinitis J30.9 [facility] [address] [place] [id number] [place] [address] 24 Feb, 2018 Bipolar 1 disorder, mixed F3 1.60 [place] [address] [place] [id number] [place] [address] 20 Feb, 2018 Bipolar 1 disorder, mixed F3 1.60 and Generalized anxiety disorder F41.1 [facility] [address] [facility] [id number] [address] [place] [address] 13 Feb, 2018 Bipolar 1 disorder, mixed F3 1.60 [place] [address] [place] [id number] [place] [address] Feb, Allergic rhinitis J30.9 [facility] [address] [place] [id number] [place] [address] Feb, [facility] [address] [facility] [id number] [address] [place], [place] [address] Jan, Bipolar 1 disorder, mixed F3 1.60 [facility] [address] [facility] [id number] [address] [place] [address] Jan, Low back pain M54.5 ; Hyperl ipidemia, unspecified hyperlipidemia type E78.5 and Bipolar 1 disorder, mixed F31.60 [facility] [address] [facility] [id number] [address] [place] [address] Jan, Bipolar 1 disorder, mixed F3 1.60 [place] [address] [place] [id number] [place] [address] Jan, Bipolar 1 disorder, mixed F3 1.60 [place] [address] [place] [id number] [place] [address] Jan, Bipolar 1 disorder, mixed F3 1.60 [place] [address] [place] [id number] [place] [address] Jan, Bipolar 1 disorder, mixed F3 1.60 [facility] [address] [place] [id number] [place] [address] Dec, Bipolar 1 disorder, mixed F3 1.60 ; Generalized anxiety disorder F41.1 and 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.899 [place] [address] [facility] [id number] [address] [place] [address] Dec, 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 (current) dr ug therapy Z79.899 [facility] [address] [facility] [id number] [address] [place] [address] Dec, Bipolar 1 disorder, mixed F3 1.60 [facility] [address] [facility] [id number] [address] [place] [address] Dec, Bipolar 1 disorder, mixed F3 1.60 [facility] [address] [address] Nov, Bipolar 1 disorder, mixed F3 1.60 [facility] [address] [place] [address] Nov, Bipolar 1 disorder, mixed F3 1.60 [facility] [address] [address] Nov, Bipolar 1 disorder, mixed F3 1.60 [facility] [address] [place] [id number] [place] [address] Nov, Allergic rhinitis J30.9 [place] [address] [address] Nov, Allergic rhinitis J30.9 [place] [address] [address] Nov, [facility] [address] [address] Nov, Bipolar 1 disorder, mixed F3 1.60 [place] [address] [address] Nov, Fibromyalgia M79.7 and Aller gic rhinitis J30.9 [facility] [address] [address] October, Bipolar 1 disorder, mixed F3 1.60 [facility] [address] [address] October, Acute nasopharyngitis J00 [facility] [address] [address] October, Bitten or stung by nonvenomo us insect and other nonvenomous arthropods, initial encounter W57.XXXA and Insect bite (nonvenomous) of abdominal wall, initial encounter S30.861A [facility] [address] [address] October, Insect bite (nonvenomous) of abdominal wall, initial encounter S30.861A ; Bitten or stung by nonvenomous insect and other nonvenomous arthropods, initial encounter W57.XXXA ; Allergic rhinitis J30.9 and Low back pain M54.5 [facility] [address] [id number] [address] [place] [address] October, Bipolar 1 disorder, mixed F3 1.60 [facility] [address] [id number] [address] [place] [address] October, [facility] [address] [id number] [address] [place] [address] October, [facility] [address] [id number] [address] [place] [address] October, Bipolar 1 disorder, mixed F3 1.60 [facility] [address] [id number] [address] [place] [address] Sep, Bipolar 1 disorder, mixed F3 1.60 [facility] [address] [id number] [address] [place] [address] Sep, Other chronic pain G89.29 [facility] [address] [facility] [id number] [address] [place] [address] Sep, [facility] [address] [id number] [address] [place] [address] Sep, Bipolar 1 disorder, mixed F3 1.60 [facility] [address] [id number] [address] [place] [address] Sep, Allergic rhinitis J30.9 and Sciatica of left side M54.32 [facility] [address] [facility] [id number] [address] [place] [address] Sep, Bipolar 1 disorder, mixed F3 1.60 [facility] [address] [facility] [id number] [address] [place] [address] Sep, Bipolar 1 disorder, mixed F3 1.60 and Generalized anxiety disorder F41.1 [facility] [address] [id number] [address] [place] [address] Aug, [facility] [address] [id number] [address] [place] [address] Aug, Bipolar 1 disorder, mixed F3 1.60 [facility] [address] [id number] [address] [place] [address] Aug, Bipolar 1 disorder, mixed F3 1.60 [facility] [address] [id number] [address] [place] [address] Aug, [facility] [address] [facility] [id number] [address] [place] [address] Aug, Generalized anxiety disorder F41.1 [facility] [address] [facility] [id number] [address] [place] [address] Aug, Bipolar 1 disorder, mixed F3 1.60 [facility] [address] [facility] [id number] [address] [place] [address] Aug, Plantar wart of right foot B 07.0 [facility] [address] [facility] [id number] [address] [place] [address] Aug, Bipolar 1 disorder, mixed F3 1.60 [facility] [address] [facility] [id number] [address] [place] [address] Jul, Bipolar 1 disorder, mixed F3 1.60 [facility] [address] [facility] [id number] [address] [place] [address] Jul, [facility] [address] [facility] [id number] [address] [place] [address] 14 Jul, 2017 Bipolar 1 disorder, mixed F3 1.60 [facility] [address] [facility] [id number] [address] [place] [address] 09 Jul, 2017 Generalized anxiety disorder F41.1 [facility] [address] [facility] [id number] [address] [place] [address] 07 Jul, 2017 Bipolar 1 disorder, mixed F3 1.60 [facility] [address] [place] [id number] [place] [address] 07 Jul, 2017 Acute left-sided low back pa in with left-sided sciatica M54.42 [place] [address] [place] [id number] [place] [address] 05 Jul, 2017 Coccydynia M53.3 [place] [address] [place] [id number] [place] [address] Jun, Bipolar 1 disorder, mixed F3 1.60 [facility] [address] [address] Jun, Acute nasopharyngitis J00 [place] [address] [address] Jun, Bipolar 1 disorder, mixed F3 1.60 [place] [address] [place] [id number] [place] [address] Jun, Fibromyalgia M79.7 [place] [address] [address] Jun, Bipolar 1 disorder, mixed F3 1.60 [place] [address] [place] [id number] [place] [address] Jun, Fibromyalgia M79.7 and Bipol ar 1 disorder, mixed F31.60 [place] [address] [place] [id number] [place] [address] May, Bipolar 1 disorder, mixed F3 1.60 ; Generalized anxiety disorder F41.1 and 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 [place] [address] [place] [id number] [place] [address] May, Bipolar 1 disorder, mixed F3 1.60 [facility] [address] [place] [id number] [place] [address] May, Cough R05 and Body aches R52 [facility] [address] [address] 10 May, 2017 Bladder spasm N32.89 and Acu te cystitis without hematuria N30.00 [facility] [address] [address] 07 May, 2017 Bipolar 1 disorder, mixed F3 1.60 [place] [address] [address] 30 Apr, 2017 [place] [address] [address] Apr, Major depressive disorder, r ecurrent episode, moderate F33.1 and Encounter for immunization Z23 [place] [address] [address] Apr, Bipolar 1 disorder, mixed F3 1.60 [place] [address] [address] Apr, Bipolar 1 disorder, mixed F3 1.60 [place] [address] [address] 16 Apr, 2017 Bipolar 1 disorder, mixed F3 1.60 [place] [address] [address] 13 Apr, 2017 Yeast vaginitis B37.3 [place] [address] [address] 09 Apr, 2017 Bipolar 1 disorder, mixed F3 1.60 [facility] [address] [address] 07 Apr, 2017 Cellulitis L03[address] for immunization Z23 [place] [address] [address] 02 Apr, 2017 Bipolar 1 disorder, mixed F3 1.60 [place] [address] [address] Mar, Bipolar 1 disorder, mixed F3 1.60 [place] [address] [place] [id number] [place] [address] Mar, Bipolar 1 disorder, mixed F3 1.60 [place] [address] [place] [id number] [place] [address] Mar, Imbalance R26.89 [address] for immunization Z23 [place] [address] [place] [id number] [place] [address] Mar, Generalized anxiety disorder F41.1 [place] [address] [address] Mar, Bipolar 1 disorder, mixed F3 1.60 [place] [address] [place] [id number] [address] [place] [id number] Mar, Generalized anxiety disorder F41.1 [place] [address] [address] [place] [id number] [address] [place] [id number] Mar, Bipolar 1 disorder, mixed F3 1.60 [place] [address] [address] [place] [id number] [address] [place] [id number] Mar, Bipolar 1 disorder, mixed F3 1.60 [place] [address] [address] [place] [id number] [place] [id number] Feb, Bipolar 1 disorder, mixed F3 1.60 [place] [address] [address] [place] [id number] [place] [address] Feb, Bipolar 1 disorder, mixed F3 1.60 and Generalized anxiety disorder F41.1 [place] [address] [address] [place] [id number] [address] [place] [id number] Feb, Gastritis without bleeding, unspecified chronicity, unspecified gastritis type K29.70 ; Hammer toe of right foot M20.41 and Other viral warts B07.8 [place] [address] [address] [place] [id number] [place] [address] Feb, Bipolar 1 disorder, mixed F3 1.60 [facility] [address] [facility] [id number] [address] [place] [id number] 13 Feb, 2017 Bipolar 1 disorder, mixed F3 1.60 [facility] [address] [facility] [id number] [address] [place] [id number] 05 Feb, 2017 Bipolar 1 disorder, mixed F3 1.60 [facility] [address] [facility] [id number] [address] [place] [id number] Jan, Encounter for screening mamm ogram for breast cancer Z12.31 ; Other viral warts B07.8 and Allergic rhinitis J30.9 [facility] [address] [facility] [id number] [address] [place] [phone] Jan, Bipolar 1 disorder, mixed F3 1.60 [facility] [address] [facility] [id number] [address] [place] [address] [address] Jan, Bipolar 1 disorder, mixed F3 1.60 [facility] [address] [facility] [id number] [address] [place] [address] 14 Jan, 2017 [facility] [address] [facility] [id number] [address] [place] [address] Jan, Bipolar 1 disorder, mixed F3 1.60 [facility] [address] [facility] [id number] [address] [place] [address] 04 Jan, 2017 Bipolar 1 disorder, mixed F3 1.60 [facility] [address] [facility] [id number] [address] [place] [address] 02 Jan, 2017 Allergic rhinitis J30.9 ; He maturia R31.9 and Colon cancer screening Z12.11 [facility] [address] [facility] [id number] [address] [place] [address] Dec, Bipolar 1 disorder, mixed F3 1.60 [facility] [address] [facility] [id number] [address] [place] [address] 18 Dec, 2016 Bipolar 1 disorder, mixed F3 1.60 ; Generalized anxiety disorder F41.1 and 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.899 [facility] [address] [facility] [id number] [address] [place] [address] Dec, Bipolar 1 disorder, mixed F3 1.60 [facility] [address] [facility] [id number] [address] [place] [address] Dec, Bipolar 1 disorder, mixed F3 1.60 [facility] [address] [place] [id number] [address] [place] [address] Dec, Bipolar 1 disorder, mixed F3 1.60 [facility] [address] [place] [id number] [address] [place] [address] Dec, Low back pain M54.5 and Recu rrent urinary tract infection N39.0 [place] [address] [place] [id number] [address] [place] [address] Nov, Bipolar 1 disorder, mixed F3 1.60 [place] [address] [place] [id number] [address] [place] [address] Nov, Bipolar 1 disorder, mixed F3 1.60 [place] [address] [place] [id number] [address] [place] [address] Nov, Bipolar 1 disorder, mixed F3 1.60 [place] [address] [place] [id number] [address] [place] [address] Nov, Bipolar 1 disorder, mixed F3 1.60 [place] [address] [place] [id number] [address] [place] [address] Nov, [place] [address] [place] [id number] [address] [place] [address] Nov, Anesthesia of skin R20.0 ; F requent UTI N39.0 ; Tobacco abuse Z72.0 and Colon cancer screening Z12.11 [facility] [address] [place] [id number] [address] [place] [address] Nov, Bipolar 1 disorder, mixed F3 1.60 [place] [address] [place] [id number] [address] [place] [address] October, Bipolar 1 disorder, mixed F3 1.60 [facility] [address] [place] [id number] [address] [place] [address] October, Bipolar 1 disorder, mixed F3 1.60 [facility] [address] [facility] [id number] [address] [place] [address] October, Bipolar 1 disorder, mixed F3 1.60 [facility] [address] [place] [id number] [place] [address] October, Bipolar 1 disorder, mixed F3 1.60 [facility] [address] [place] [id number] [address] [place] [address] October, Bipolar 1 disorder, mixed F3 1.60 [place] [address] [place] [id number] [place] [address] October, Cervicalgia M54.2 and Bipola r 1 disorder, mixed F31.60 [place] [address] [place] [id number] [address] [place] [address] October, Hypertension I10 ; Hyperlipi demia, unspecified hyperlipidemia type E78.5 and Family history of thyroid disease Z83.49 [place] [address] [place] [id number] [place] [address] October, [facility] [address] [place] [id number] [address] [place] [address] October, Hypertension I10 ; Hyperlipi demia, unspecified hyperlipidemia type E78.5 and Family history of thyroid problem Z83.49 [place] [address] [place] [id number] [address] [place] [address] October, Bipolar 1 disorder, mixed F3 1.60 [place] [address] [place] [id number] [address] [place] [id number] Sep, Bipolar 1 disorder, mixed F3 1.60 [facility] [address] [place] [id number] [address] [place] [address] Sep, Bipolar 1 disorder, mixed F3 1.60 [facility] [address] [place] [id number] [address] [place] [address] Sep, Bipolar 1 disorder, mixed F3 1.60 [facility] [address] [place] [id number] [address] [place] [address] Sep, History of colon polyps Z86. 010 and Hematochezia K92.1 [facility] [address] [place] [id number] [address] [place] [address] Sep, Major depressive disorder, r ecurrent episode, moderate F33.1 [facility] [address] [place] [id number] [address] [place] [address] Sep, Bipolar 1 disorder, mixed F3 1.60 [place] [address] [place] [id number] [place] [address] Aug, Hot flashes due to menopause N95.1 [place] [address] [place] [id number] [address] [place] [address] Aug, Bipolar 1 disorder, mixed F3 1.60 [facility] [address] [place] [id number] [address] [place] [address] Aug, [facility] [address] [place] [id number] [place] [address] Aug, Bipolar 1 disorder, mixed F3 1.60 [place] [address] [place] [id number] [address] [place] [address] Aug, Bipolar 1 disorder, mixed F3 1.60 [facility] [address] [place] [id number] [address] [place] [address] Aug, Hot flashes due to menopause N95.1 ; Cervicalgia M54.2 and Ataxia R27.0 [facility] [address] [place] [id number] [address] [place] [address] Jul, Bipolar 1 disorder, mixed F3 1.60 [place] [address] [place] [id number] [address] [place] [address] Jul, Bipolar 1 disorder, mixed F3 1.60 [facility] [address] Jul, Bipolar 1 disorder, mixed F3 1.60 [facility] [address] 13 Jul, 2016 Bipolar 1 disorder, mixed F3 1.60 [place] [address] Jul, Bipolar 1 disorder, mixed F3 1.60 [place] [address] 08 Jul, 2016 Cervicalgia M54.2 ; Tremor R 25.1 ; Hearing abnormally acute, unspecified laterality H93.239 ; Alopecia L65.9 ; Encounter for immunization Z23 and Family history of thyroid disease Z83.49 [place] [address] [place] [address] Jul, Bipolar 1 disorder, mixed F3 1.60 [place] [address] Jun, [place] [address] Jun, Hearing disorder, unspecifie d laterality H93.299 [place] [address] Jun, Bipolar 1 disorder, mixed F3 1.60 [place] [address] [place] [address] Jun, Bipolar 1 disorder, mixed F3 1.60 [place] [address] Jun, Allergic rhinitis J30.9 [place] [address] [address] Jun, Bipolar 1 disorder, mixed F3 1.60 [facility] [address] [id number] [address] [place] [address] Jun, Bipolar 1 disorder, mixed F3 1.60 [facility] [address] [id number] [address] [place] [address] Jun, Allergic rhinitis J30.9 [facility] [address] [id number] [address] [place] [address] Jun, Allergic rhinitis J30.9 [facility] [address] [id number] [address] [place] [address] Jun, Bipolar 1 disorder, mixed F3 1.60 [facility] [address] [id number] [address] [place] [address] May, Bipolar 1 disorder, mixed F3 1.60 [facility] [address] [id number] [address] [place] [address] May, Bipolar 1 disorder, mixed F3 1.60 [facility] [address] [id number] [address] [place] [address] May, [facility] [address] [id number] [address] [place] [address] May, Bipolar 1 disorder, mixed F3 1.60 [facility] [address] [id number] [address] [place] [address] May, Bipolar 1 disorder, mixed F3 1.60 [facility] [address] [id number] [address] [place] [address] May, [facility] [address] [id number] [address] [place] [address] May, [facility] [address] [id number] [address] [place] [address] May, [facility] [address] [id number] [address] [place] [address] May, Abdominal pain, unspecified location R10.9 [facility] [address] [address] May, [facility] [address] [address] Apr, Hematuria R31.9 ; Ataxia R27 .0 and Hearing loss, unspecified laterality H91.90 [facility] [address] [address] Apr, Bipolar 1 disorder, mixed F3 1.60 [facility] [address] [address] Apr, Acute effusion of both middl e ears H65.193 [place] [address] [address] Apr, Hematuria R31.9 and Pyelonep hritis N12 [place] [address] [address] Apr, [place] [address] [address] Mar, Bipolar 1 disorder, mixed F3 1.60 [place] [address] [address] Mar, [place] [address] [address] Mar, Bipolar 1 disorder, mixed F3 1.60 [place] [address] [address] Mar, Bipolar 1 disorder, mixed F3 1.60 [place] [address] [address] Mar, Encounter for immunization Z 23 and Gastritis without bleeding, unspecified chronicity, unspecified gastritis type K29.70 [facility] [address] [address] 05 Mar, 2016 Bipolar 1 disorder, mixed F3 1.60 and Grief F43.20 [place] [address] [facility] [id number] [address] [place] [address] 05 Mar, 2016 Gastritis without bleeding, unspecified chronicity, unspecified gastritis type K29.70 [facility] [address] [place] [id number] [address] [place] [address] 05 Mar, 2016 Bipolar 1 disorder, mixed F3 1.60 [place] [address] [place] [id number] [address] [place], [place] [id number] Mar, Gastritis without bleeding, unspecified chronicity, unspecified gastritis type K29.70 [place] [address] [place] [id number] [address] [place] [address] Mar, [place] [address] [place] [id number] [place] [address] Feb, Bipolar 1 disorder, mixed F3 1.60 [place] [address] [place] [address] Feb, Bipolar 1 disorder, mixed F3 1.60 and Grief F43.20 [place] [address] [place] [id number] [address] [place] [address] Feb, Gastritis without bleeding, unspecified chronicity, unspecified gastritis type K29.70 [place] [address] [place] [id number] [address] [place] [address] 14 Feb, 2016 Bipolar 1 disorder, mixed F3 1.60 [facility] [address] [facility] [id number] [address] [place] [address] Feb, Gastroesophageal reflux dise ase, esophagitis presence not specified K21.9 [place] [address] 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 [facility] [address] [place] [id number] [address] [place] [address] Jan, Bipolar 1 disorder, mixed F3 1.60 [facility] [address] [place] [id number] [address] [place] [address] Jan, Bipolar 1 disorder, mixed F3 1.60 [facility] [address] [place] [id number] [place] [address] Jan, Bipolar 1 disorder, mixed F3 1.60 ; Grief F43.20 and 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.899 [facility] [address] [place] [id number] [address] [place] [address] Jan, Bipolar 1 disorder, mixed F3 1.60 [facility] [address] [place] [id number] [address] [place] [address] Dec, [facility] [address] [address] Dec, Bipolar 1 disorder, mixed F3 1.60 ; Vitamin D deficiency, unspecified E55.9 ; H/O allergic rhinitis Z87.09 ; Other chronic pain G89.29 and Dorsalgia, unspecified M54.9 [facility] [address] [place] [id number] [address] [place] [address] Dec, [facility] [address] [place] [id number] [place] [address] Dec, Bipolar 1 disorder, mixed F3 1.60 [facility] [address] [place] [id number] [address] [place] [address] Dec, Major depressive disorder, r ecurrent episode, moderate F33.1 [place] [address] [facility] [id number] [address] [place] [address] Dec, Major depressive disorder, r ecurrent episode, moderate F33.1 [facility] [address] [facility] [id number] [address] [place] [address] Nov, [facility] [address] [facility] [id number] [address] [place] [address] Nov, Bipolar 1 disorder, mixed F3 1.60 [place] [address] [facility] [id number] [address] [place] [address] Nov, Major depressive disorder, r ecurrent episode, moderate F33.1 [place] [address] [facility] [id number] [address] [place] [address] Nov, Cervicalgia M54.2 ; Arthralg ia of hip, unspecified laterality M25.559 ; Allergic rhinitis J30.9 and Hormone replacement therapy Z79.890 [facility] [address] [facility] [id number] [address] [place] [address] Nov, Other seasonal allergic rhin itis J30.2 [place] [address] [facility] [id number] [address] [place] [address] October, Major depressive disorder, r ecurrent episode, moderate F33.1 [place] [address] [facility] [id number] [address] [place] [address] October, Major depressive disorder, r ecurrent episode, moderate F33.1 and Arthralgia of hip, unspecified laterality M25.559 [place] [address] [facility] [id number] [address] [place] [address] October, Grief F43.20 ; Hypertension I10 ; Hyperlipidemia, unspecified hyperlipidemia type E78.5 ; Other chronic pain G89.29 and Allergic rhinitis, unspecified allergic rhinitis type J30.9 [facility] [address] [facility] [id number] [address] [place] [address] October, Major depressive disorder, r ecurrent episode, moderate F33.1 [facility] [address] [facility] [id number] [address] [place] [address] Sep, Major depressive disorder, r ecurrent episode, moderate F33.1 [facility] [address] [facility] [id number] [address] [place] [address] Sep, [facility] [address] [facility] [id number] [address] [place] [address] Sep, Major depressive disorder, r ecurrent episode, moderate F33.1 [facility] [address] [facility] [id number] [address] [place] [address] Sep, Grief F43.20 [place] [address] [facility] [id number] [address] [place] [address] Aug, Major depressive disorder, r ecurrent episode, moderate F33.1 [place] [address] [place] [id number] [address] [place] [address] Aug, Bipolar 1 disorder, mixed F3 1.60 [facility] [address] [facility] [id number] [address] [place] [address] Aug, Allergic rhinitis J30.9 ; Ce rvicalgia M54.2 and Low back pain M54.5 [place] [address] [facility] [id number] [address] [place] [address] Aug, Major depressive disorder, r ecurrent episode, moderate F33.1 [facility] [address] [facility] [id number] [address] [place] [address] Aug, Sinusitis J32.9 and Tobacco 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 [facility] [address] [facility] [id number] [address] [place] [address] Aug, [facility] [address] [facility] [id number] [address] [place] [address] Aug, Depressive disorder, not els ewhere classified F32.9 ; Hormone replacement therapy Z79.[address] scan, head R93.0 [place] [address] [id number] [address] [place] [address] Aug, Major depressive disorder, r ecurrent episode, moderate F33.1 [facility] [address] [facility] [id number] [address] [place] [address] Jul, Major depressive disorder, r ecurrent episode, moderate F33.1 [facility] [address] [facility] [id number] [address] [place] [address] Jul, Abdominal pain R10.9 and Hyp ertension I10 [facility] [address] [facility] [id number] [address] [place] [address] Jul, [facility] [address] [facility] [id number] [address] [place] [address] Jul, Major depressive disorder, r ecurrent episode, moderate F33.1 [facility] [address] [place] [id number] [address] [place] [address] Jul, [facility] [address] [facility] [id number] [address] [place] [address] Jul, [facility] [address] [place] [id number] [address] [place] [address] Jun, [facility] [address] [place] [id number] [address] [place] [address] Jun, Depressive disorder, not els ewhere classified F32.9 [facility] [address] [facility] [id number] [address] [place] [address] Jun, [facility] [address] [facility] [id number] [address] [place] [address] Jun, [facility] [address] [facility] [id number] [address] [place] [id number] Jun, Arthralgia of hip, unspecifi ed laterality M25.559 ; Bruising, spontaneous R23.3 and Night sweats R61 [facility] [address] [facility] [id number] [address] [place] [id number] Jun, [facility] [address] [id number] [address] [place] [id number] Jun, [facility] [address] [id number] [address] [place] [id number] May, [facility] [address] [id number] [address] [place] [id number] May, Myalgia M79.1 and Screening, lipid Z13.220 [facility] [address] [id number] [address] [place] [id number] Apr, Status post cervical spinal fusion Z98.1 ; Fibromyalgia M79.7 and Unsteady gait R26.81 [facility] [address] [id number] [address] [place] [id number] Nov, [facility] [address] [id number] [address] [place] [id number] Nov, [facility] [address] [id number] [address] [place] [id number] October, [facility] [address] [facility] [id number] [address] [place] [id number] October, [facility] [address] [id number] [address] [place] [phone] October, [facility] [address] [id number] [address] [place] [id number] October, [facility] [address] [id number] [address] [place] [id number] October, [facility] [address] [facility] [id number] [address] [place] [id number] October, Dysuria 788.1 ; Nausea 787.0 2 and Urinary tract infection 599.0 [facility] [address] [id number] [address] [place] [id number] Sep, [facility] [address] [id number] [facility] [place] [address] 13 Sep, 2014 [facility] [address] [id number] [address] [place] [address], [place] [address] 25 Aug, 2014 [facility] [address] [id number] [address] [place] [address], [place] [address] 25 Aug, 2014 [facility] [address] [id number] [address] [place] [address], [place] [id number] 24 Aug, 2014 [facility] [address] [id number] [address] [place] [address], [place] [address] 24 Aug, 2014 [facility] [address] [id number] [address] [place] [address], [place] [id number] 23 Aug, 2014 [facility] [address] [id number] [address] [place] [address], [place] [address] 19 Aug, 2014 [facility] [address] [id number] [address] [place] [address], [place] [address] 19 Aug, 2014 [facility] [address] [id number] [address] [place] [address], [place] [address] 19 Aug, 2014 [facility] [address] [id number] [address] [place] [address], [place] [address] 19 Aug, 2014 [facility] [address] [id number] [address] [place] [address], [place] [address] 18 Aug, 2014 [facility] [address] [id number] [address] [place] [address], [place] [address] 18 Aug, 2014 [facility] [address] [id number] [address] [place] [address], [place] [address] 13 Aug, 2014 [facility] [address] [id number] [address] [place] [address], [place] [address] 13 Aug, 2014 [facility] [address] [id number] [address] [place] [address], [place] [address] 11 Aug, 2014 [facility] [address] [id number] [address] [place] [address], [place] [address] Aug, [facility] [address] [id number] [address] [place] [address], [place] [address] Aug, [facility] [address] [id number] [address] [place] [address], [place] [address] Aug, [facility] [address] [id number] [address] [place] [address], [place] [address] Aug, 2014 [facility] [address] [id number] [address] [place] [address], [place] [address] Aug, 2014 [facility] [address] [id number] [address] [place] [address], [place] [address] Aug, [facility] [address] [id number] [address] [place] [address], [place] [address] Aug, [facility] [address] [id number] [address] [place] [address], [place] [address] Aug, [facility] [address] [id number] [address] [place] [address], [place] [address] Jul, 2014 [facility] [address] [id number] [address] [place] [address], [place] [address] Jul, [facility] [address] [id number] [address] [place] [address], [place] [address] Jul, [facility] [address] [id number] [address] [place] [address], [place] [address] Jul, 2014 [facility] [address] [id number] [address] [place] [address] Jul, 2014 [facility] [address] [id number] [address] [place] [address], [place] [address] Jul, [facility] [address] [id number] [address] [place] [address], [place] [address] Jul, 2014 [facility] [address] [id number] [address] [place] [address], [place] [address] Jul, 2014 [facility] [address] [id number] [address] [place] [address], [place] [address] Jul, 2014 [facility] [address] [id number] [address] [place] [address], [place] [address] Jul, 2014 [facility] [address] [id number] [address] [place] [address], [place] [address] Jul, 2014 [facility] [address] [id number] [address] [place] [address], [place] [address] Jul, 2014 [facility] [address] [id number] [address] [place] [address], [place] [address] Jul, [facility] [address] [id number] [address] [place] [address], [place] [address] Jul, [facility] [address] [id number] [address] [place] [address], [place] [address] Jun, [facility] [address] [id number] [address] [place] [address], [place] [address] Jun, [facility] [address] [id number] [address] [place] [address], [place] [address] Jun, [facility] [address] [id number] [address] [place] [address], [place] [address] Jun, [facility] [address] [id number] [address] [place] [address], [place] [address] Jun, [facility] [address] [id number] [address] [place] [address], [place] [address] Jun, [facility] [address] [id number] [address] [place] [address], [place] [address] May, [facility] [address] [id number] [address] [place] [address], [place] [address] May, [facility] [address] [id number] [address] [place] [address], [place] [address] May, [facility] [address] [id number] [address] [place] [address], [place] [address] May, [facility] [address] [id number] [address] [place] [address], [place] [address] May, [facility] [address] [id number] [address] [place] [address], [place] [address] May, [facility] [address] [id number] [address] [place] [address], [place] [address] Apr, [facility] [address] [id number] [address] [place] [address], [place] [address] Apr, [facility] [address] [id number] [address] [place] [address], [place] [address] Apr, [facility] [address] [id number] [address] [place] [address], [place] [address] Apr, [facility] [address] [id number] [address] [place] [address], [place] [address] Apr, [facility] [address] [id number] [address] [place] [address], [place] [address] Apr, [facility] [address] [id number] [address] [place] [address], [place] [address] Mar, [facility] [address] [id number] [address] [place] [address] Mar, [facility] [address] [id number] [address] [place] [address] Mar, [facility] [address] [id number] [address] [place] [address] Mar, [facility] [address] [id number] [address] [place] [address], [place] [address] Mar, [facility] [address] [id number] [address] [place] [address] Mar, [facility] [address] [id number] [address] [place] [address] Mar, [facility] [address] [id number] [address] [place] [address], [place] [address] Mar, [facility] [address] [id number] [address] [place] [address], [place] [address] Mar, [facility] [address] [id number] [address] [place] [address], [place] [address] Mar, [facility] [address] [id number] [address] [place] [address], [place] [address] Mar, [facility] [address] [id number] [address] [place] [address], [place] [address] Mar, [facility] [address] [id number] [address] [place] [address], [place] [address] 30 Feb, 2014 [facility] [address] [id number] [address] [place] [address], [place] [address] 29 Feb, 2014 [facility] [address] [id number] [address] [place] [address], [place] [address] 29 Feb, 2014 [facility] [address] [id number] [address] [place] [address], [place] [address] 23 Feb, 2014 [facility] [address] [id number] [address] [place] [address], [place] [address] 23 Feb, 2013 [facility] [address] [id number] [address] [place] [address], [place] [address] 08 Feb, 2014 [facility] [address] [id number] [address] [place] [address], [place] [address] 08 Feb, 2014 [facility] [address] [id number] [address] [place] [address], [place] [address] Jan, [facility] [address] [id number] [address] [place] [address], [place] [address] Jan, [facility] [address] [id number] [address] [place] [address], [place] [address] Jan, [facility] [address] [id number] [address] [place] [address], [place] [address] Dec, [facility] [address] [id number] [address] [place] [address], [place] [address] Dec, [facility] [address] [id number] [address] [place] [address], [place] [address] Dec, [facility] [address] [id number] [address] [place] [address], [place] [address] Dec, [facility] [address] [id number] [address] [place] [address], [place] [address] Sep, [facility] [address] [id number] [address] [place] [address], [place] [address] Sep, [facility] [address] [id number] [address] [place] [address], [place] [address] Sep, [facility] [address] [id number] [address] [place] [address], [place] [address] Sep, [facility] [address] [id number] [address] [place] [address], [place] [address] Sep, [facility] [address] [id number] [address] [place] [address], [place] [address] Sep, [facility] [address] [id number] [address] [place] [address], [place] [address] Sep, [facility] [address] [id number] [address] [place] [address], [place] [address] Sep, [facility] [address] [id number] [address] [place] [address], [place] [address] Aug, [facility] [address] [id number] [address] [place] [address], [place] [address] Aug, [facility] [address] [id number] [address] [place] [address], [place] [address] May, [facility] [address] [id number] [address] [place] [address], [place] [address] May, [facility] [address] [id number] [address] [place] [address], [place] [address] Apr, [facility] [address] [id number] [address] [place] [address], [place] [address] Apr, [facility] [address] [id number] [address] [place] [address], [place] [address] Apr, [facility] [address] [id number] [address] [place] [address], [place] [address] Apr, [facility] [address] [id number] [address] [place] [address], [place] [address] Apr, [facility] [address] [id number] [address] [place] [address], [place] [address] Apr, [facility] [address] [id number] [address] [place] [address], [place] [address] May, [facility] [address] [id number] [address] [place] [address], [place] [address] May, [facility] [address] [id number] [address] [place] [address], [place] [address] May, [facility] [address] [id number] [address] [place] [address], [place] [address] May, [facility] [address] [id number] [address] [place] [address], [place] [address] May, [facility] [address] [id number] [address] [place] [address], [place] [address] May, [facility] [address] [id number] [address] [place] [address], [place] [address] Apr, [facility] [address] [id number] [address] [place] [address], [place] [address] Apr, [facility] [address] [id number] [address] [place] [address], [place] [address] Apr, [facility] [address] [id number] [address] [place] [address], [place] [address] Apr, [facility] [address] [id number] [address] [place] [address], [place] [address] 08 Apr, 2012 [facility] [address] [id number] [address] [place] [address], [place] [address] 08 Apr, 2012 [facility] [address] [id number] [address] [place] [address], [place] [address] Apr, [facility] [address] [id number] [address] [place] [address], [place] [address] Apr, [facility] [address] [id number] [address] [place] [address], [place] [address] Apr, [facility] [address] [id number] [address] [place] [address], [place] [address] Apr, [facility] [address] [id number] [address] [place] [address], [place] [address] Mar, [facility] [address] [id number] [address] [place] [address], [place] [address] Mar, [facility] [address] [id number] [address] [place] [address], [place] [address] Mar, [facility] [address] [id number] [address] [place] [address], [place] [address] Mar, [facility] [address] [id number] [address] [place] [address], [place] [address] Mar, [facility] [address] [id number] [address] [place] [address], [place] [address] Mar, [facility] [address] [id number] [address] [place] [address], [place] [address] Mar, [facility] [address] [id number] [address] [place] [address], [place] [address] Mar, [facility] [address] [id number] [address] [place] [address], [place] [address] Mar, [facility] [address] [id number] [address] [place] [address], [place] [address] Feb, [facility] [address] [id number] [address] [place] [address], [place] [address] 16 Feb, 2012 [facility] [address] [id number] [address] [place] [address], [place] [address] Feb, [facility] [address] [id number] [address] [place] [address], [place] [address] Jan, [facility] [address] [id number] [address] [place] [address], [place] [address] Jan, [facility] [address] [id number] [address] [place] [address], [place] [address] Jan, [facility] [address] [id number] [address] [place] [address], [place] [address] Jan, [facility] [address] [id number] [address] [place] [address], [place] [address] Jan, [facility] [address] [id number] [address] [place] [address], [place] [address] Jan, [facility] [address] [id number] [address] [place] [address], [place] [address] Jan, [facility] [address] [id number] [address] [place] [address], [place] [address] Jan, [facility] [address] [id number] [address] [place] [address], [place] [address] Jan, [facility] [address] [id number] [address] [place] [address], [place] [address] Jan, [facility] [address] [id number] [address] [place] [address], [place] [address] Dec, [facility] [address] [id number] [address] [place] [address], [place] [address] Dec, [facility] [address] [id number] [address] [place] [address], [place] [address] Dec, [facility] [address] [id number] [address] [place] [address], [place] [address] 17 Dec, 2011 [facility] [address] [id number] [address] [place] [address], [place] [address] Nov, [facility] [address] [id number] [address] [place] [address], [place] [address] 08 Nov, 2011 [facility] [address] [id number] [address] [place] [address], [place] [address] Nov, [facility] [address] [id number] [address] [place] [address], [place] [address] October, [facility] [address] [id number] [address] [place] [address], [place] [address] October, [facility] [address] [id number] [address] [place] [address], [place] [address] October, [facility] [address] [id number] [address] [place] [address], [place] [address] October, [facility] [address] [id number] [address] [place] [address], [place] [address] October, [facility] [address] [id number] [address] [place] [address], [place] [address] October, [facility] [address] [id number] [address] [place] [address], [place] [address] Aug, [facility] [address] [id number] [address] [place] [address], [place] [address] Mar, [facility] [address] [id number] [address] [place] [address], [place] [address] Nov, [facility] [address] [id number] [address] [place] [address], [place] [address] May, [facility] [address] [id number] [address] [place] [address], [place] [address] May, [facility] [address] [id number] [address] [place] [address], [place] [address] Apr, [facility] [address] [facility] [id number] [address] [place] [address] Mar, [facility] [address] [facility] [id number] [address] [place] [address] Mar, IMMUNIZATIONS No Known Immunizations SOCIAL HISTORY [...]
--- OUTSIDE RECORDS SUMMARY | 2019-06-19 05:08 | XMS REPORT ---
Author Author Sydnie Levine [facility] Address [address] [place] [address] Care Team Providers Care Brim Pouncer Name Role Phone MARISABEL Levine Unavailable PROBLEMS Type Condition ICD9-CM Code WWR22-ZP Code Onset Dates Condition S tatus SNOMED Code Problem Age-related osteoporosis without current pathological fracture M81.0 Active 54793472 Problem Sensorineural hearing loss (SNHL) of both ears H90 .3 Active 699821532 Problem Abnormal CT scan, head R93.0 Active 337929631 Problem Arthralgia of hip, unspecified laterality M25.559 Active 11845989 Problem Bruising, spontaneous R23.3 Active 625767434 Problem Hypertension I10 Active 4388168 3 Problem Night sweats R61 Active 3259767 0 Problem Imbalance R26.89 Active 778877469 Problem Hammer toe of right foot M20.41 Activ e 876876309 Problem Hormone replacement therapy Z79.890 Ac tive 876310137 Problem Bipolar 1 disorder, mixed F31.60 Acti ve 42571352 Problem Gastritis without bleeding, unspecified chronicity, unspecified gastritis type K29.70 Active 983278762 Problem Ataxia R27.0 Active 07623756 Problem Hearing loss, unspecified laterality H91.90 Active 35080363 Problem History of colon polyps Z86.010 Active 007226160 Problem Allergic rhinitis J30.9 Active 61 897669 Problem Hematuria, unspecified type R31.9 Ac tive 60836868 Problem Generalized anxiety disorder F41.1 A ctive 09623163 Problem Major depressive disorder, recurrent episode, moderate F33.1 Active 080724209 Problem Fibromyalgia M79.7 Active 6788587 7 Problem Bladder spasm N32.89 Active 504287 006 Problem Tobacco use disorder F17.200 Active 879454262 Problem Other chronic pain G89.29 Active 8 5881544 Problem Post menopausal syndrome N95.1 Activ e 116393736 Problem Grief F43.20 Active 43936713 Problem Hyperlipidemia, unspecified hyperlipidemia type E7 8.5 Active 05298869 Problem Acute left-sided low back pain with left-sided sciatica M54.42 Active 193331564 Problem Sciatica of left side M54.32 Active 78877221 Problem Plantar wart of right foot B07.0 Act mitchell [id number] Problem Slow transit constipation K59.01 Acti ve 88105191 ALLERGIES No Information ENCOUNTERS Encounter Location Date Diagnosis [facility] [id number] [place] [address] Jan, [facility] [address] [place] [id number] [place] [phone] Jan, [facility] [address] [address] Jan, [facility] [address] [address] Jan, [facility] [address] [address] Dec, Normal pelvic exam Z01.419 [place] [address] [address] Dec, Bipolar 1 disorder, mixed F3 1.60 [facility] [address] [place] [id number] [place] [address] Nov, Bipolar 1 disorder, mixed F3 1.60 [facility] [address] [place] [id number] [place] [address] Nov, Bipolar 1 disorder, mixed F3 1.60 ; Generalized anxiety disorder F41.1 ; Tobacco use disorder F17.200 and Other intermission coordinator (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 Z79.899 [facility] [address] [place] [id number] [place] [phone] Nov, [facility] [address] [place] [id number] [place] [address] Nov, Bipolar 1 disorder, mixed F3 1.60 [place] [address] [facility] [id number] [address] [place] [address] October, Bipolar 1 disorder, mixed F3 1.60 [place] [address] [facility] [id number] [address] [place] [phone] October, Bipolar 1 disorder, mixed F3 1.60 [place] [address] [facility] [id number] [address] [place] [address] October, [place] [address] [facility] [id number] [address] [place] [phone] October, Bipolar 1 disorder, mixed F3 1.60 ; Generalized anxiety disorder F41.1 and Tobacco use disorder F17.200 [place] [address] [facility] [id number] [address] [place] [phone] Sep, [place] [address] [place] [id number] [place] [id number] Sep, Encounter for Medicare annua wellness exam Z00.00 ; Major depressive disorder, recurrent episode, moderate F33.1 ; Allergic rhinitis J30.9 ; Bipolar 1 disorder, mixed F31.60 ; Fibromyalgia M79.7 ; Hyperlipidemia, unspecified hyperlipidemia type E78.5 ; Hormone replacement therapy Z79.890 ; Encounter for screening for lung cancer Z12.2 and Tobacco use disorder F17.200 [place] [address] [facility] [id number] [address] [place] [phone] Sep, Bipolar 1 disorder, mixed F3 1.60 [place] [address] [facility] [id number] [address] [place] [address] Sep, Other chronic pain G89.29 ; Hyperlipidemia, unspecified hyperlipidemia type E78.5 ; Breast cancer screening Z12.31 and Post menopausal syndrome N95.1 [place] [address] [facility] [id number] [address] [place] [phone] Sep, Bipolar 1 disorder, mixed F3 1.60 [place] [address] [place] [id number] [place] [address] Sep, Bipolar 1 disorder, mixed F3 1.60 ; Generalized anxiety disorder F41.1 and Tobacco use disorder F17.200 [place] [address] [place] [id number] Sep, Gastritis without bleeding, unspecified chronicity, unspecified gastritis type K29.70 [place] [address] [address] Sep, Exercise counseling Z71.82 [place] [address] [address] Aug, Exercise counseling Z71.82 [place] [address] [place] [address] Aug, Bipolar 1 disorder, mixed F3 1.60 [place] [address] [address] Aug, Exercise counseling Z71.82 [place] [address] [address] Aug, Bipolar 1 disorder, mixed F3 1.60 [place] [address] [address] Aug, Gastritis without bleeding, unspecified chronicity, unspecified gastritis type K29.70 ; Tobacco abuse Z72.0 ; Generalized anxiety disorder F41.1 and Weight gain R63.5 [place] [address] [address] Aug, Bipolar 1 disorder, mixed F3 1.60 ; Generalized anxiety disorder F41.1 and Tobacco use disorder F17.200 [place] [address] [address] Jul, Bipolar 1 disorder, mixed F3 1.60 [place] [address] [address] Jul, [place] [address] [address] Jul, Bipolar 1 disorder, mixed F3 1.60 [facility] [address] [facility] [id number] [address] [place] [phone] Jul, Allergic rhinitis J30.9 ; Ma darion depressive disorder, recurrent episode, moderate F33.1 and Tobacco 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 [facility] [address] [facility] [id number] [address] [place] [phone] Jun, [facility] [address] [facility] [id number] [address] [place] [phone] Jun, [facility] [address] [facility] [id number] [address] [place] [id number] Jun, Bipolar 1 disorder, mixed F3 1.60 [place] [address] [place] [id number] [place] [phone] Jun, Bipolar 1 disorder, mixed F3 1.60 [place] [address] [place] [id number] [place] [phone] Jun, Bipolar 1 disorder, mixed F3 1.60 [place] [address] [place] [id number] [place] [address] Jun, Generalized anxiety disorder F41.1 ; Tobacco abuse Z72.0 and Major depressive disorder, recurrent episode, moderate F33.1 [place] [address] [place] [id number] [place] [phone] May, Bipolar 1 disorder, mixed F3 1.60 [facility] [address] [place] [id number] [place] [address] May, Bipolar 1 disorder, mixed F3 1.60 and Generalized anxiety disorder F41.1 [place] [address] [place] [id number] [place] [address] May, Bipolar 1 disorder, mixed F3 1.60 [place] [address] [place] [id number] [place] [phone] May, Allergic rhinitis J30.9 [facility] [address] [facility] [id number] [address] [place] [phone] May, Bipolar 1 disorder, mixed F3 1.60 [facility] [address] [place] [id number] [place] [phone] May, [facility] [address] [facility] [id number] [address] [place] [address] Apr, Allergic rhinitis J30.9 ; Dy sfunction of both eustachian tubes H69.83 ; History of bladder surgery Z98.890 and Cervicalgia M54.2 [facility] [address] [place] [id number] [place] [phone] Mar, Bipolar 1 disorder, mixed F3 1.60 [place] [address] [place] [id number] [place] [phone] Mar, [place] [address] [place] [id number] [place] [address] Mar, Slow transit constipation K5 9.01 ; Encounter for immunization Z23 and Generalized anxiety disorder F41.1 [place] [address] [facility] [id number] [address] [place] [phone] 27 Feb, 2018 Bipolar 1 disorder, mixed F3 1.60 [place] [address] [place] [id number] [place] [address] 26 Feb, 2018 Allergic rhinitis J30.9 [facility] [address] [place] [id number] [place] [id number] 24 Feb, 2018 Bipolar 1 disorder, mixed F3 1.60 [place] [address] [place] [id number] [place] [id number] 20 Feb, 2018 Bipolar 1 disorder, mixed F3 1.60 and Generalized anxiety disorder F41.1 [facility] [address] [facility] [id number] [address] [place] [phone] 13 Feb, 2018 Bipolar 1 disorder, mixed F3 1.60 [place] [address] [place] [id number] [place] [address] Feb, Allergic rhinitis J30.9 [facility] [address] [place] [id number] [place] [phone] Feb, [facility] [address] [facility] [id number] [address] [place], [place] [address] Jan, Bipolar 1 disorder, mixed F3 1.60 [facility] [address] [facility] [id number] [address] [place] [phone] Jan, Low back pain M54.5 ; Hyperl ipidemia, unspecified hyperlipidemia type E78.5 and Bipolar 1 disorder, mixed F31.60 [facility] [address] [facility] [id number] [address] [place] [address] Jan, Bipolar 1 disorder, mixed F3 1.60 [place] [address] [place] [id number] [place] [phone] Jan, Bipolar 1 disorder, mixed F3 1.60 [place] [address] [place] [id number] [place] [phone] Jan, Bipolar 1 disorder, mixed F3 1.60 [place] [address] [place] [id number] [place] [id number] Jan, Bipolar 1 disorder, mixed F3 1.60 [facility] [address] [place] [id number] [place] [address] Dec, Bipolar 1 disorder, mixed F3 1.60 ; Generalized anxiety disorder F41.1 and 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 (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 Z79.899 [place] [address] [facility] [id number] [address] [place] [phone] Dec, Other intermission coordinator (current) dr ug therapy Z79.899 [facility] [address] [facility] [id number] [address] [place] [address] Dec, Bipolar 1 disorder, mixed F3 1.60 [facility] [address] [facility] [id number] [address] [place] [address] Dec, Bipolar 1 disorder, mixed F3 1.60 [facility] [address] [address] Nov, Bipolar 1 disorder, mixed F3 1.60 [facility] [address] [place] [id number] Nov, Bipolar 1 disorder, mixed F3 1.60 [facility] [address] [address] Nov, Bipolar 1 disorder, mixed F3 1.60 [facility] [address] [place] [id number] [place] [address] Nov, Allergic rhinitis J30.9 [place] [address] [address] Nov, Allergic rhinitis J30.9 [place] [address] [address] Nov, [facility] [address] [address] Nov, Bipolar 1 disorder, mixed F3 1.60 [place] [address] [address] Nov, Fibromyalgia M79.7 and Aller gic rhinitis J30.9 [facility] [address] [address] October, Bipolar 1 disorder, mixed F3 1.[address] [facility] [address] [address] October, Acute nasopharyngitis J00 [facility] [address] [address] October, Bitten or stung by nonvenomo us insect and other nonvenomous arthropods, initial encounter W57.XXXA and Insect bite (nonvenomous) of abdominal wall, initial encounter S30.861A [facility] [address] [address] October, Insect bite (nonvenomous) of abdominal wall, initial encounter S30.861A ; Bitten or stung by nonvenomous insect and other nonvenomous arthropods, initial encounter W57.XXXA ; Allergic rhinitis J30.9 and Low back pain M54.5 [facility] [address] [id number] [address] [place] [address] October, Bipolar 1 disorder, mixed F3 1.60 [facility] [address] [id number] [address] [place] [address] October, [facility] [address] [id number] [address] [place] [address] October, [facility] [address] [id number] [address] [place] [address] October, Bipolar 1 disorder, mixed F3 1.60 [facility] [address] [id number] [address] [place] [address] Sep, Bipolar 1 disorder, mixed F3 1.60 [facility] [address] [id number] [address] [place] [address] Sep, Other chronic pain G89.29 [facility] [address] [facility] [id number] [address] [place] [phone] Sep, [facility] [address] [id number] [address] [place] [address] Sep, Bipolar 1 disorder, mixed F3 1.60 [facility] [address] [id number] [address] [place] [address] Sep, Allergic rhinitis J30.9 and Sciatica of left side M54.32 [facility] [address] [facility] [id number] [address] [place] [phone] Sep, Bipolar 1 disorder, mixed F3 1.60 [facility] [address] [facility] [id number] [address] [place] [address] Sep, Bipolar 1 disorder, mixed F3 1.60 and Generalized anxiety disorder F41.1 [facility] [address] [id number] [address] [place] [id number] Aug, [facility] [address] [id number] [address] [place] [id number] Aug, Bipolar 1 disorder, mixed F3 1.60 [facility] [address] [id number] [address] [place] [address] Aug, Bipolar 1 disorder, mixed F3 1.60 [facility] [address] [id number] [address] [place] [address] Aug, [facility] [address] [facility] [id number] [address] [place] [address] Aug, Generalized anxiety disorder F41.1 [facility] [address] [facility] [id number] [address] [place] [phone] Aug, Bipolar 1 disorder, mixed F3 1.60 [facility] [address] [facility] [id number] [address] [place] [address] Aug, Plantar wart of right foot B 07.0 [facility] [address] [facility] [id number] [address] [place] [address] Aug, Bipolar 1 disorder, mixed F3 1.60 [facility] [address] [facility] [id number] [address] [place] [address] Jul, Bipolar 1 disorder, mixed F3 1.60 [facility] [address] [facility] [id number] [address] [place] [address] Jul, [facility] [address] [facility] [id number] [address] [place] [id number] 14 Jul, 2017 Bipolar 1 disorder, mixed F3 1.60 [facility] [address] [facility] [id number] [address] [place] [address] 09 Jul, 2017 Generalized anxiety disorder F41.1 [facility] [address] [facility] [id number] [address] [place] [address] 07 Jul, 2017 Bipolar 1 disorder, mixed F3 1.60 [facility] [address] [place] [id number] [place] [address] 07 Jul, 2017 Acute left-sided low back pa in with left-sided sciatica M54.42 [place] [address] [place] [id number] [place] [address] 05 Jul, 2017 Coccydynia M53.3 [place] [address] [place] [id number] [place] [address] Jun, Bipolar 1 disorder, mixed F3 1.60 [facility] [address] [address] Jun, Acute nasopharyngitis J00 [place] [address] [address] Jun, Bipolar 1 disorder, mixed F3 1.60 [place] [address] [place] [id number] [place] [address] Jun, Fibromyalgia M79.7 [place] [address] [address] Jun, Bipolar 1 disorder, mixed F3 1.60 [place] [address] [place] [id number] [place] [address] Jun, Fibromyalgia M79.7 and Bipol ar 1 disorder, mixed F31.60 [place] [address] [place] [id number] [place] [address] May, Bipolar 1 disorder, mixed F3 1.60 ; Generalized anxiety disorder F41.1 and Other intermission coordinator (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 Z79.899 [place] [address] [place] [id number] [place] [address] May, Bipolar 1 disorder, mixed F3 1.60 [facility] [address] [place] [id number] [place] [address] May, Cough R05 and Body aches R52 [facility] [address] [address] 10 May, 2017 Bladder spasm N32.89 and Acu te cystitis without hematuria N30.00 [facility] [address] [address] 07 May, 2017 Bipolar 1 disorder, mixed F3 1.60 [place] [address] [address] 30 Apr, 2017 [place] [address] [address] Apr, Major depressive disorder, r ecurrent episode, moderate F33.1 and Encounter for immunization Z23 [place] [address] [address] Apr, Bipolar 1 disorder, mixed F3 1.60 [place] [address] [address] Apr, Bipolar 1 disorder, mixed F3 1.60 [place] [address] [address] 16 Apr, 2017 Bipolar 1 disorder, mixed F3 1.60 [place] [address] [address] 13 Apr, 2017 Yeast vaginitis B37.3 [place] [address] [address] 09 Apr, 2017 Bipolar 1 disorder, mixed F3 1.60 [facility] [address] [address] 07 Apr, 2017 Cellulitis L03[address] for immunization Z23 [place] [address] [address] 02 Apr, 2017 Bipolar 1 disorder, mixed F3 1.60 [place] [address] [address] Mar, Bipolar 1 disorder, mixed F3 1.60 [place] [address] [place] [id number] [place] [address] Mar, Bipolar 1 disorder, mixed F3 1.60 [place] [address] [place] [id number] [place] [address] Mar, Imbalance R26.89 and Encount er for immunization Z23 [place] [address] [place] [id number] [place] [address] Mar, Generalized anxiety disorder F41.1 [place] [address] [address] Mar, Bipolar 1 disorder, mixed F3 1.60 [place] [address] [place] [id number] [place] [address] Mar, Generalized anxiety disorder F41.1 [place] [address] [place] [id number] [place] [address] Mar, Bipolar 1 disorder, mixed F3 1.60 [place] [address] [place] [id number] [place] [address] Mar, Bipolar 1 disorder, mixed F3 1.60 [place] [address] [place] [id number] [place] [id number] Feb, Bipolar 1 disorder, mixed F3 1.60 [place] [address] [place] [id number] [place] [address] Feb, Bipolar 1 disorder, mixed F3 1.60 and Generalized anxiety disorder F41.1 [place] [address] [place] [id number] [place] [id number] Feb, Gastritis without bleeding, unspecified chronicity, unspecified gastritis type K29.70 ; Hammer toe of right foot M20.41 and Other viral warts B07.8 [place] [address] [place] [id number] [place] [address] Feb, Bipolar 1 disorder, mixed F3 1.60 [facility] [address] [facility] [id number] [address] [place] [address] 13 Feb, 2017 Bipolar 1 disorder, mixed F3 1.60 [facility] [address] [facility] [id number] [address] [place] [address] 05 Feb, 2017 Bipolar 1 disorder, mixed F3 1.60 [facility] [address] [facility] [id number] [address] [place] [address] Jan, Encounter for screening mamm ogram for breast cancer Z12.31 ; Other viral warts B07.8 and Allergic rhinitis J30.9 [facility] [address] [facility] [id number] [address] [place] [phone] Jan, Bipolar 1 disorder, mixed F3 1.60 [facility] [address] [facility] [id number] [address] [place] [address] Jan, Bipolar 1 disorder, mixed F3 1.60 [facility] [address] [facility] [id number] [address] [place] [id number] 14 Jan, 2017 [facility] [address] [facility] [id number] [address] [place] [phone] Jan, Bipolar 1 disorder, mixed F3 1.60 [facility] [address] [facility] [id number] [address] [place] [id number] 04 Jan, 2017 Bipolar 1 disorder, mixed F3 1.60 [facility] [address] [facility] [id number] [address] [place] [phone] 02 Jan, 2017 Allergic rhinitis J30.9 ; He maturia R31.9 and Colon cancer screening Z12.11 [facility] [address] [facility] [id number] [address] [place] [phone] Dec, Bipolar 1 disorder, mixed F3 1.60 [facility] [address] [facility] [id number] [address] [place] [phone] 18 Dec, 2016 Bipolar 1 disorder, mixed F3 1.60 ; Generalized anxiety disorder F41.1 and 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 (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 Z79.899 [facility] [address] [facility] [id number] [address] [place] [phone] Dec, Bipolar 1 disorder, mixed F3 1.60 [facility] [address] [facility] [id number] [address] [place] [phone] Dec, Bipolar 1 disorder, mixed F3 1.60 [facility] [address] [place] [id number] [address] [place] [phone] Dec, Bipolar 1 disorder, mixed F3 1.60 [facility] [address] [place] [id number] [address] [place] [phone] Dec, Low back pain M54.5 and Recu rrent urinary tract infection N39.0 [place] [address] [place] [id number] [address] [place] [phone] Nov, Bipolar 1 disorder, mixed F3 1.60 [facility] [place] [address] [place] [id number] [address] [place] [id number] Nov, Bipolar 1 disorder, mixed F3 1.60 [place] [address] [place] [id number] [address] [place] [phone] Nov, Bipolar 1 disorder, mixed F3 1.60 [place] [address] [place] [id number] [address] [place] [phone] Nov, Bipolar 1 disorder, mixed F3 1.60 [place] [address] [place] [id number] [address] [place] [phone] Nov, [place] [address] [place] [id number] [address] [place] [id number] Nov, Anesthesia of skin R20.0 ; F requent UTI N39.0 ; Tobacco abuse Z72.0 and Colon cancer screening Z12.11 [facility] [address] [place] [id number] [address] [place] [phone] Nov, Bipolar 1 disorder, mixed F3 1.60 [place] [address] [place] [id number] [address] [place] [id number] October, Bipolar 1 disorder, mixed F3 1.60 [facility] [address] [place] [id number] [address] [place] [phone] October, Bipolar 1 disorder, mixed F3 1.60 [facility] [address] [facility] [id number] [address] [place] [phone] October, Bipolar 1 disorder, mixed F3 1.60 [facility] [address] [place] [id number] [place] [address] October, Bipolar 1 disorder, mixed F3 1.60 [facility] [address] [place] [id number] [address] [place] [id number] October, Bipolar 1 disorder, mixed F3 1.60 [place] [address] [place] [id number] [place] [phone] October, Cervicalgia M54.2 and Bipola r 1 disorder, mixed F31.60 [place] [address] [place] [id number] [address] [place] [phone] October, Hypertension I10 ; Hyperlipi demia, unspecified hyperlipidemia type E78.5 and Family history of thyroid disease Z83.49 [place] [address] [place] [id number] [place] [address] October, [facility] [address] [place] [id number] [address] [place] [phone] October, Hypertension I10 ; Hyperlipi demia, unspecified hyperlipidemia type E78.5 and Family history of thyroid problem Z83.49 [place] [address] [place] [id number] [address] [place] [phone] October, Bipolar 1 disorder, mixed F3 1.60 [place] [address] [place] [id number] [address] [place], [place] [id number] Sep, Bipolar 1 disorder, mixed F3 1.60 [facility] [address] [place] [id number] [address] [place] [phone] Sep, Bipolar 1 disorder, mixed F3 1.60 [facility] [address] [place] [id number] [address] [place] [phone] Sep, Bipolar 1 disorder, mixed F3 1.60 [facility] [address] [place] [id number] [address] [place], [place] [address] Sep, History of colon polyps Z86. 010 and Hematochezia K92.1 [facility] [address] [place] [id number] [address] [place] [address] Sep, Major depressive disorder, r ecurrent episode, moderate F33.1 [facility] [address] [place] [id number] [address] [place] [address] Sep, Bipolar 1 disorder, mixed F3 1.60 [place] [address] [place] [id number] [place] [address] Aug, Hot flashes due to menopause N95.1 [place] [address] [place] [id number] [address] [place] [phone] Aug, Bipolar 1 disorder, mixed F3 1.60 [facility] [address] [place] [id number] [place] [phone] Aug, [facility] [address] [place] [id number] [place] [address] Aug, Bipolar 1 disorder, mixed F3 1.60 [place] [address] [place] [id number] [place] [phone] Aug, Bipolar 1 disorder, mixed F3 1.60 [facility] [address] [place] [id number] [address] [place] [address] Aug, Hot flashes due to menopause N95.1 ; Cervicalgia M54.2 and Ataxia R27.0 [facility] [address] [place] [id number] [address] [place] [phone] Jul, Bipolar 1 disorder, mixed F3 1.60 [place] [address] [place] [id number] [address] [place] [phone] Jul, Bipolar 1 disorder, mixed F3 1.60 [facility] [address] Jul, Bipolar 1 disorder, mixed F3 1.60 [facility] [address] 13 Jul, 2016 Bipolar 1 disorder, mixed F3 1.60 [place] [address] Jul, Bipolar 1 disorder, mixed F3 1.60 [place] [address] 08 Jul, 2016 Cervicalgia M54.2 ; Tremor R 25.1 ; Hearing abnormally acute, unspecified laterality H93.239 ; Alopecia L65.9 ; Encounter for immunization Z23 and Family history of thyroid disease Z83.49 [place] [address] [place] [address] Jul, Bipolar 1 disorder, mixed F3 1.60 [place] [address] Jun, [place] [address] Jun, Hearing disorder, unspecifie d laterality H93.299 [place] [address] Jun, Bipolar 1 disorder, mixed F3 1.60 [place] [address] [place] [address] Jun, Bipolar 1 disorder, mixed F3 1.60 [place] [address] Jun, Allergic rhinitis J30.9 [place] [address] [address] Jun, Bipolar 1 disorder, mixed F3 1.60 [facility] [address] [id number] [address] [place] [phone] Jun, Bipolar 1 disorder, mixed F3 1.60 [facility] [address] [id number] [address] [place] [phone] Jun, Allergic rhinitis J30.9 [facility] [address] [id number] [address] [place] [id number] Jun, Allergic rhinitis J30.9 [facility] [address] [id number] [address] [place] [id number] Jun, Bipolar 1 disorder, mixed F3 1.60 [facility] [address] [id number] [address] [place] [phone] May, Bipolar 1 disorder, mixed F3 1.60 [facility] [address] [id number] [address] [place] [phone] May, Bipolar 1 disorder, mixed F3 1.60 [facility] [address] [id number] [address] [place] [address] May, [facility] [address] [id number] [address] [place] [phone] May, Bipolar 1 disorder, mixed F3 1.60 [facility] [address] [id number] [address] [place] [address] May, Bipolar 1 disorder, mixed F3 1.60 [facility] [address] [id number] [address] [place] [phone] May, [facility] [address] [id number] [address] [place] [phone] May, [facility] [address] [id number] [address] [place] [phone] May, [facility] [address] [id number] [address] [place] [address] May, Abdominal pain, unspecified location R10.9 [facility] [address] [address] May, [facility] [address] [address] Apr, Hematuria R31.9 ; Ataxia R27 .0 and Hearing loss, unspecified laterality H91.90 [facility] [address] [address] Apr, Bipolar 1 disorder, mixed F3 1.[address] [facility] [address] [address] Apr, Acute effusion of both middl e ears H65.193 [place] [address] [address] Apr, Hematuria R31.9 and Pyelonep hritis N12 [place] [address] [address] Apr, [place] [address] [address] Mar, Bipolar 1 disorder, mixed F3 1.60 [place] [address] [address] Mar, [place] [address] [address] Mar, Bipolar 1 disorder, mixed F3 1.60 [place] [address] [address] Mar, Bipolar 1 disorder, mixed F3 1.60 [place] [address] [address] Mar, Encounter for immunization Z 23 and Gastritis without bleeding, unspecified chronicity, unspecified gastritis type K29.70 [facility] [address] [address] 05 Mar, 2016 Bipolar 1 disorder, mixed F3 1.60 and Grief F43.20 [place] [address] [facility] [id number] [address] [place] [id number] 05 Mar, 2016 Gastritis without bleeding, unspecified chronicity, unspecified gastritis type K29.70 [facility] [address] [place] [id number] [address] [place], [place] [address] 05 Mar, 2016 Bipolar 1 disorder, mixed F3 1.60 [place] [address] [place] [id number] [address] [place] [id number] Mar, Gastritis without bleeding, unspecified chronicity, unspecified gastritis type K29.70 [place] [address] [place] [id number] [address] [place] [address] Mar, [place] [address] [place] [id number] [place] [address] Feb, Bipolar 1 disorder, mixed F3 1.60 [place] [address] [place] [id number] Feb, Bipolar 1 disorder, mixed F3 1.60 and Grief F43.20 [place] [address] [place] [id number] [address] [place] [address] Feb, Gastritis without bleeding, unspecified chronicity, unspecified gastritis type K29.70 [place] [address] [place] [id number] [address] [place] [phone] 14 Feb, 2016 Bipolar 1 disorder, mixed F3 1.60 [facility] [address] [facility] [id number] [address] [place] [phone] Feb, Gastroesophageal reflux dise ase, esophagitis presence not specified K21.9 [place] [address] [facility] [id number] [address] [place], [place] [address] Jan, Bipolar 1 disorder, mixed F3 1.60 [place] [address] [place] [id number] [address] [place], [place] [id number] Jan, Bipolar 1 disorder, mixed F3 1.60 and Unsteady gait R26.81 [place] [address] [place] [id number] [address] [place] [address] Jan, Bipolar 1 disorder, mixed F3 1.60 [facility] [address] [place] [id number] [address] [place] [phone] Jan, Bipolar 1 disorder, mixed F3 1.60 and Other intermission coordinator (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 Z79.899 [facility] [address] [place] [id number] [address] [place] [address] Jan, Bipolar 1 disorder, mixed F3 1.60 [facility] [address] [place] [id number] [address] [place] [address] Jan, Bipolar 1 disorder, mixed F3 1.60 [facility] [address] [place] [id number] [place] [address] Jan, Bipolar 1 disorder, mixed F3 1.60 ; Grief F43.20 and 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 (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 Z79.899 [facility] [address] [place] [id number] [place] [address] Jan, Bipolar 1 disorder, mixed F3 1.60 [facility] [address] [place] [id number] [place] [address] Dec, [facility] [address] [address] Dec, Bipolar 1 disorder, mixed F3 1.60 ; Vitamin D deficiency, unspecified E55.9 ; H/O allergic rhinitis Z87.09 ; Other chronic pain G89.29 and Dorsalgia, unspecified M54.9 [facility] [address] [place] [id number] [address] [place] [address] Dec, [facility] [address] [place] [id number] [place] [address] Dec, Bipolar 1 disorder, mixed F3 1.60 [facility] [address] [place] [id number] [address] [place] [address] Dec, Major depressive disorder, r ecurrent episode, moderate F33.1 [place] [address] [facility] [id number] [address] [place] [phone] Dec, Major depressive disorder, r ecurrent episode, moderate F33.1 [facility] [address] [facility] [id number] [address] [place] [address] Nov, [facility] [address] [facility] [id number] [address] [place] [address] Nov, Bipolar 1 disorder, mixed F3 1.60 [place] [address] [facility] [id number] [address] [place] [address] Nov, Major depressive disorder, r ecurrent episode, moderate F33.1 [place] [address] [facility] [id number] [address] [place] [address] Nov, Cervicalgia M54.2 ; Arthralg ia of hip, unspecified laterality M25.559 ; Allergic rhinitis J30.9 and Hormone replacement therapy Z79.890 [facility] [address] [facility] [id number] [address] [place] [address] Nov, Other seasonal allergic rhin itis J30.2 [place] [address] [facility] [id number] [address] [place] [address] October, Major depressive disorder, r ecurrent episode, moderate F33.1 [place] [address] [facility] [id number] [address] [place] [address] October, Major depressive disorder, r ecurrent episode, moderate F33.1 and Arthralgia of hip, unspecified laterality M25.559 [place] [address] [facility] [id number] [address] [place] [address] October, Grief F43.20 ; Hypertension I10 ; Hyperlipidemia, unspecified hyperlipidemia type E78.5 ; Other chronic pain G89.29 and Allergic rhinitis, unspecified allergic rhinitis type J30.9 [facility] [address] [facility] [id number] [address] [place] [address] October, Major depressive disorder, r ecurrent episode, moderate F33.1 [facility] [address] [facility] [id number] [address] [place] [address] Sep, Major depressive disorder, r ecurrent episode, moderate F33.1 [facility] [address] [facility] [id number] [address] [place] [address] Sep, [facility] [address] [facility] [id number] [address] [place] [address] Sep, Major depressive disorder, r ecurrent episode, moderate F33.1 [facility] [address] [facility] [id number] [address] [place] [address] Sep, Grief F43.20 [place] [address] [facility] [id number] [address] [place] [id number] Aug, Major depressive disorder, r ecurrent episode, moderate F33.1 [place] [address] [place] [id number] [address] [place] [id number] Aug, Bipolar 1 disorder, mixed F3 1.60 [facility] [address] [facility] [id number] [address] [place] [address] Aug, Allergic rhinitis J30.9 ; Ce rvicalgia M54.2 and Low back pain M54.5 [place] [address] [facility] [id number] [address] [place] [address] Aug, Major depressive disorder, r ecurrent episode, moderate F33.[address] [facility] [address] [facility] [id number] [address] [place] [address] Aug, Sinusitis J32.9 and Tobacco 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 [facility] [address] [facility] [id number] [address] [place] [address] Aug, [facility] [address] [facility] [id number] [address] [place] [address] Aug, Depressive disorder, not els ewhere classified F32.9 ; Hormone replacement therapy Z79.[address] scan, head R93.0 [place] [address] [id number] [address] [place] [id number] Aug, Major depressive disorder, r ecurrent episode, moderate F33.1 [facility] [address] [facility] [id number] [address] [place] [address] Jul, Major depressive disorder, r ecurrent episode, moderate F33.1 [facility] [address] [facility] [id number] [address] [place] [address] Jul, Abdominal pain R10.9 and Hyp ertension I10 [facility] [address] [facility] [id number] [address] [place] [address] Jul, [facility] [address] [facility] [id number] [address] [place] [address] Jul, Major depressive disorder, r ecurrent episode, moderate F33.1 [facility] [address] [place] [id number] [address] [place] [address] Jul, [facility] [address] [facility] [id number] [address] [place] [id number] Jul, [facility] [address] [place] [id number] [address] [place] [address] Jun, [facility] [address] [place] [id number] [address] [place] [address] Jun, Depressive disorder, not els ewhere classified F32.9 [facility] [address] [facility] [id number] [address] [place] [address] Jun, [facility] [address] [facility] [id number] [address] [place] [address] Jun, [facility] [address] [facility] [id number] [address] [place] [address] Jun, Arthralgia of hip, unspecifi ed laterality M25.559 ; Bruising, spontaneous R23.3 and Night sweats R61 [facility] [address] [facility] [id number] [address] [place] [address] Jun, [facility] [address] [id number] [address] [place] [address] Jun, [facility] [address] [id number] [address] [place] [address] May, [facility] [address] [id number] [address] [place] [address] May, Myalgia M79.1 and Screening, lipid Z13.220 [facility] [address] [id number] [address] [place] [phone] Apr, Status post cervical spinal fusion Z98.1 ; Fibromyalgia M79.7 and Unsteady gait R26.81 [facility] [address] [id number] [address] [place] [address] Nov, [facility] [address] [id number] [address] [place] [id number] Nov, [facility] [address] [id number] [address] [place] [phone] October, [facility] [address] [facility] [id number] [address] [place] [address] October, [facility] [address] [id number] [address] [place] [phone] October, [facility] [address] [id number] [address] [place] [id number] October, [facility] [address] [id number] [address] [place] [address] October, [facility] [address] [facility] [id number] [address] [place] [id number] October, Dysuria 788.1 ; Nausea 787.0 2 and Urinary tract infection 599.0 [facility] [address] [id number] [address] [place] [id number] Sep, [facility] [address] [id number] [facility] [place] [address] 13 Sep, 2014 [facility] [address] [id number] [address] [place] [address], [place] [address] 25 Aug, 2014 [facility] [address] [id number] [address] [place] [address], [place] [address] 25 Aug, 2014 [facility] [address] [id number] [address] [place] [address], [place] [address] 24 Aug, 2014 [facility] [address] [id number] [address] [place] [address], [place] [address] 24 Aug, 2014 [facility] [address] [id number] [address] [place] [address], [place] [address] 23 Aug, 2014 [facility] [address] [id number] [address] [place] [address], [place] [address] 19 Aug, 2014 [facility] [address] [id number] [address] [place] [address], [place] [address] 19 Aug, 2014 [facility] [address] [id number] [address] [place] [address], [place] [address] 19 Aug, 2014 [facility] [address] [id number] [address] [place] [address], [place] [address] 19 Aug, 2014 [facility] [address] [id number] [address] [place] [address], [place] [address] 18 Aug, 2014 [facility] [address] [id number] [address] [place] [address], [place] [address] 18 Aug, 2014 [facility] [address] [id number] [address] [place] [address], [place] [address] 13 Aug, 2014 [facility] [address] [id number] [address] [place] [address], [place] [address] 13 Aug, 2014 [facility] [address] [id number] [address] [place] [address], [place] [address] 11 Aug, 2014 [facility] [address] [id number] [address] [place] [address], [place] [address] Aug, [facility] [address] [id number] [address] [place] [address], [place] [address] Aug, [facility] [address] [id number] [address] [place] [address], [place] [address] Aug, [facility] [address] [id number] [address] [place] [address], [place] [address] Aug, 2014 [facility] [address] [id number] [address] [place] [address], [place] [address] Aug, 2014 [facility] [address] [id number] [address] [place] [address], [place] [address] Aug, [facility] [address] [id number] [address] [place] [address], [place] [address] Aug, [facility] [address] [id number] [address] [place] [address], [place] [address] Aug, [facility] [address] [id number] [address] [place] [address], [place] [address] Jul, 2014 [facility] [address] [id number] [address] [place] [address], [place] [address] Jul, [facility] [address] [id number] [address] [place] [address], [place] [address] Jul, [facility] [address] [id number] [address] [place] [address], [place] [address] Jul, 2014 [facility] [address] [id number] [address] [place] [id number] Jul, 2014 [facility] [address] [id number] [address] [place] [address], [place] [address] Jul, [facility] [address] [id number] [address] [place] [address], [place] [address] Jul, 2014 [facility] [address] [id number] [address] [place] [address], [place] [address] Jul, 2014 [facility] [address] [id number] [address] [place] [address], [place] [address] Jul, 2014 [facility] [address] [id number] [address] [place] [address], [place] [address] Jul, 2014 [facility] [address] [id number] [address] [place] [address], [place] [address] Jul, 2014 [facility] [address] [id number] [address] [place] [address], [place] [address] Jul, 2014 [facility] [address] [id number] [address] [place] [address], [place] [address] Jul, [facility] [address] [id number] [address] [place] [address], [place] [address] Jul, [facility] [address] [id number] [address] [place] [address], [place] [address] Jun, [facility] [address] [id number] [address] [place] [address], [place] [address] Jun, [facility] [address] [id number] [address] [place] [address], [place] [address] Jun, [facility] [address] [id number] [address] [place] [address], [place] [address] Jun, [facility] [address] [id number] [address] [place] [address], [place] [address] Jun, [facility] [address] [id number] [address] [place] [address], [place] [address] Jun, [facility] [address] [id number] [address] [place] [address], [place] [address] May, [facility] [address] [id number] [address] [place] [address], [place] [address] May, [facility] [address] [id number] [address] [place] [address], [place] [address] May, [facility] [address] [id number] [address] [place] [address], [place] [address] May, [facility] [address] [id number] [address] [place] [address], [place] [address] May, [facility] [address] [id number] [address] [place] [address], [place] [address] May, [facility] [address] [id number] [address] [place] [address], [place] [address] Apr, [facility] [address] [id number] [address] [place] [address], [place] [address] Apr, [facility] [address] [id number] [address] [place] [address], [place] [address] Apr, [facility] [address] [id number] [address] [place] [address], [place] [address] Apr, [facility] [address] [id number] [address] [place] [address], [place] [address] Apr, [facility] [address] [id number] [address] [place] [address], [place] [address] Apr, [facility] [address] [id number] [address] [place] [address], [place] [address] Mar, [facility] [address] [id number] [address] [place] [address] Mar, [facility] [address] [id number] [address] [place] [address] Mar, [facility] [address] [id number] [address] [place] [address] Mar, [facility] [address] [id number] [address] [place] [address], [place] [address] Mar, [facility] [address] [id number] [address] [place] [address] Mar, [facility] [address] [id number] [address] [place] [address] Mar, [facility] [address] [id number] [address] [place] [address], [place] [address] Mar, [facility] [address] [id number] [address] [place] [address], [place] [address] Mar, [facility] [address] [id number] [address] [place] [address], [place] [address] Mar, [facility] [address] [id number] [address] [place] [address], [place] [address] Mar, [facility] [address] [id number] [address] [place] [address], [place] [address] Mar, [facility] [address] [id number] [address] [place] [address], [place] [address] 30 Feb, 2014 [facility] [address] [id number] [address] [place] [address], [place] [address] 29 Feb, 2014 [facility] [address] [id number] [address] [place] [address], [place] [address] 29 Feb, 2014 [facility] [address] [id number] [address] [place] [address], [place] [address] 23 Feb, 2014 [facility] [address] [id number] [address] [place] [address], [place] [address] 23 Feb, 2013 [facility] [address] [id number] [address] [place] [address], [place] [address] 08 Feb, 2014 [facility] [address] [id number] [address] [place] [address], [place] [address] 08 Feb, 2014 [facility] [address] [id number] [address] [place] [address], [place] [address] Jan, [facility] [address] [id number] [address] [place] [address], [place] [address] Jan, [facility] [address] [id number] [address] [place] [address], [place] [address] Jan, [facility] [address] [id number] [address] [place] [address], [place] [address] Dec, [facility] [address] [id number] [address] [place] [address], [place] [address] Dec, [facility] [address] [id number] [address] [place] [address], [place] [address] Dec, [facility] [address] [id number] [address] [place] [address], [place] [address] Dec, [facility] [address] [id number] [address] [place] [address], [place] [address] Sep, [facility] [address] [id number] [address] [place] [address], [place] [address] Sep, [facility] [address] [id number] [address] [place] [address], [place] [address] Sep, [facility] [address] [id number] [address] [place] [address], [place] [address] Sep, [facility] [address] [id number] [address] [place] [address], [place] [address] Sep, [facility] [address] [id number] [address] [place] [address], [place] [address] Sep, [facility] [address] [id number] [address] [place] [address], [place] [address] Sep, [facility] [address] [id number] [address] [place] [address], [place] [address] Sep, [facility] [address] [id number] [address] [place] [address], [place] [address] Aug, [facility] [address] [id number] [address] [place] [address], [place] [address] Aug, [facility] [address] [id number] [address] [place] [address], [place] [address] May, [facility] [address] [id number] [address] [place] [address], [place] [address] May, [facility] [address] [id number] [address] [place] [address], [place] [address] Apr, [facility] [address] [id number] [address] [place] [address], [place] [address] Apr, [facility] [address] [id number] [address] [place] [address], [place] [address] Apr, [facility] [address] [id number] [address] [place] [address], [place] [address] Apr, [facility] [address] [id number] [address] [place] [address], [place] [address] Apr, [facility] [address] [id number] [address] [place] [address], [place] [address] Apr, [facility] [address] [id number] [address] [place] [address], [place] [address] May, [facility] [address] [id number] [address] [place] [address], [place] [address] May, [facility] [address] [id number] [address] [place] [address], [place] [address] May, [facility] [address] [id number] [address] [place] [address], [place] [address] May, [facility] [address] [id number] [address] [place] [address], [place] [address] May, [facility] [address] [id number] [address] [place] [address], [place] [address] May, [facility] [address] [id number] [address] [place] [address], [place] [address] Apr, [facility] [address] [id number] [address] [place] [address], [place] [address] Apr, [facility] [address] [id number] [address] [place] [address], [place] [address] Apr, [facility] [address] [id number] [address] [place] [address], [place] [address] Apr, [facility] [address] [id number] [address] [place] [address], [place] [address] 08 Apr, 2012 [facility] [address] [id number] [address] [place] [address], [place] [address] 08 Apr, 2012 [facility] [address] [id number] [address] [place] [address], [place] [address] Apr, [facility] [address] [id number] [address] [place] [address], [place] [address] Apr, [facility] [address] [id number] [address] [place] [address], [place] [address] Apr, [facility] [address] [id number] [address] [place] [address], [place] [address] Apr, [facility] [address] [id number] [address] [place] [address], [place] [address] Mar, [facility] [address] [id number] [address] [place] [address], [place] [address] Mar, [facility] [address] [id number] [address] [place] [address], [place] [address] Mar, [facility] [address] [id number] [address] [place] [address], [place] [address] Mar, [facility] [address] [id number] [address] [place] [address], [place] [address] Mar, [facility] [address] [id number] [address] [place] [address], [place] [address] Mar, [facility] [address] [id number] [address] [place] [address], [place] [address] Mar, [facility] [address] [id number] [address] [place] [address], [place] [address] Mar, [facility] [address] [id number] [address] [place] [address], [place] [address] Mar, [facility] [address] [id number] [address] [place] [address], [place] [address] Feb, [facility] [address] [id number] [address] [place] [address], [place] [address] 16 Feb, 2012 [facility] [address] [id number] [address] [place] [address], [place] [address] Feb, [facility] [address] [id number] [address] [place] [address], [place] [address] Jan, [facility] [address] [id number] [address] [place] [address], [place] [address] Jan, [facility] [address] [id number] [address] [place] [address], [place] [address] Jan, [facility] [address] [id number] [address] [place] [address], [place] [address] Jan, [facility] [address] [id number] [address] [place] [address], [place] [address] Jan, [facility] [address] [id number] [address] [place] [address], [place] [address] Jan, [facility] [address] [id number] [address] [place] [address], [place] [address] Jan, [facility] [address] [id number] [address] [place] [address], [place] [address] Jan, [facility] [address] [id number] [address] [place] [address], [place] [address] Jan, [facility] [address] [id number] [address] [place] [address], [place] [address] Jan, [facility] [address] [id number] [address] [place] [address], [place] [address] Dec, [facility] [address] [id number] [address] [place] [address], [place] [address] Dec, [facility] [address] [id number] [address] [place] [address], [place] [address] Dec, [facility] [address] [id number] [address] [place] [address], [place] [address] 17 Dec, 2011 [facility] [address] [id number] [address] [place] [address], [place] [address] Nov, [facility] [address] [id number] [address] [place] [address], [place] [address] 08 Nov, 2011 [facility] [address] [id number] [address] [place] [address], [place] [address] Nov, [facility] [address] [id number] [address] [place] [address], [place] [address] October, [facility] [address] [id number] [address] [place] [address], [place] [address] October, [facility] [address] [id number] [address] [place] [address], [place] [address] October, [facility] [address] [id number] [address] [place] [address], [place] [address] October, [facility] [address] [id number] [address] [place] [address], [place] [address] October, [facility] [address] [id number] [address] [place] [address], [place] [address] October, [facility] [address] [id number] [address] [place] [address], [place] [address] Aug, [facility] [address] [id number] [address] [place] [address], [place] [address] Mar, [facility] [address] [id number] [address] [place] [address], [place] [address] Nov, [facility] [address] [id number] [address] [place] [address], [place] [address] May, [facility] [address] [id number] [address] [place] [address], [place] [address] May, [facility] [address] [id number] [address] [place] [address], [place] [address] Apr, [facility] [address] [facility] [id number] [address] [place] [address] Mar, [facility] [address] [facility] [id number] [address] [place] [address] Mar, IMMUNIZATIONS No Known Immunizations SOCIAL HISTORY [...]
--- OUTSIDE RECORDS SUMMARY | 2019-06-19 05:09 | XMS REPORT ---
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 Name Role Phone Migration, Doctor Unavailable Unavailable PROBLEMS Type Condition ICD9-CM Code [id number] Code Onset Dates Condition S tatus SNOMED Code Problem Age-related osteoporosis without current pathological fracture M81.0 Active 62330408 Problem Sensorineural hearing loss (SNHL) of both ears H90 .3 Active 684342682 Problem Abnormal CT scan, head R93.0 Active 609096120 Problem Arthralgia of hip, unspecified laterality M25.559 Active 93584377 Problem Bruising, spontaneous R23.3 Active 138464697 Problem Hypertension I10 Active 7496559 3 Problem Night sweats R61 Active 0103065 0 Problem Imbalance R26.89 Active 274520790 Problem Hammer toe of right foot M20.41 Activ e 015670327 Problem Hormone replacement therapy Z79.890 Ac tive 075309400 Problem Bipolar 1 disorder, mixed F31.60 Acti ve 69677523 Problem Gastritis without bleeding, unspecified chronicity, unspecified gastritis type K29.70 Active 221075219 Problem Ataxia R27.0 Active 15438786 Problem Hearing loss, unspecified laterality H91.90 Active 04720628 Problem History of colon polyps Z86.010 Active 179287749 Problem Allergic rhinitis J30.9 Active 61 419778 Problem Hematuria, unspecified type R31.9 Ac tive 71308496 Problem Generalized anxiety disorder F41.1 A ctive 70185595 Problem Major depressive disorder, recurrent episode, moderate F33.1 Active 113636109 Problem Fibromyalgia M79.7 Active 8011315 7 Problem Bladder spasm N32.89 Active 906280 006 Problem Tobacco use disorder F17.200 Active 768528947 Problem Other chronic pain G89.29 Active 8 8628750 Problem Post menopausal syndrome N95.1 Activ e 946875814 Problem Grief F43.20 Active 45980316 Problem Hyperlipidemia, unspecified hyperlipidemia type E7 8.5 Active 39055451 Problem Acute left-sided low back pain with left-sided sciatica M54.42 Active 206731130 Problem Sciatica of left side M54.32 Active 88535546 Problem Plantar wart of right foot B07.0 Act mitchell [id number] Problem Slow transit constipation K59.01 Acti ve 13255121 ALLERGIES No Information ENCOUNTERS Encounter Location Date Diagnosis [facility] [address] [facility] [id number] [address] [place] [address] Jan, [facility] [address] [place] [id number] [place] [address] Jan, [facility] [address] [place] [id number] [place] [address] Jan, [facility] [address] [place] [id number] [place] [address] Jan, [facility] [address] [place] [id number] [place] [address] Dec, Normal pelvic exam Z01.419 [place] [address] [place] [id number] [place] [address] Dec, Bipolar 1 disorder, mixed F3 1.60 [place] [address] [place] [id number] [place] [address] Nov, Bipolar 1 disorder, mixed F3 1.60 [place] [address] [place] [id number] [place] [address] Nov, Bipolar 1 disorder, mixed F3 1.60 ; Generalized anxiety disorder F41.1 ; Tobacco use disorder F17.200 and Other detention (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 Z79.899 [place] [address] [place] [id number] [place] [address] Nov, [place] [address] [place] [id number] [place] [address] Nov, Bipolar 1 disorder, mixed F3 1.60 [place] [address] [place] [id number] [place] [address] October, Bipolar 1 disorder, mixed F3 1.60 [facility] [address] [facility] [id number] [address] [place] [address] October, Bipolar 1 disorder, mixed F3 1.60 [facility] [address] [facility] [id number] [address] [place] [address] October, [facility] [address] [place] [id number] [place] [address] October, Bipolar 1 disorder, mixed F3 1.60 ; Generalized anxiety disorder F41.1 and Tobacco use disorder F17.200 [facility] [address] [facility] [id number] [address] [place] [address] Sep, [place] [address] [place] [id number] [place] [address] Sep, [facility] Z[facility].00 ; Major depressive disorder, recurrent episode, moderate F33.1 ; Allergic rhinitis J30.9 ; Bipolar 1 disorder, mixed F31.60 ; Fibromyalgia M79.7 ; Hyperlipidemia, unspecified hyperlipidemia type E78.5 ; Hormone replacement therapy Z79.890 ; Encounter for screening for lung cancer Z12.2 and Tobacco use disorder F17.200 [place] [address] [facility] [id number] [address] [place] [address] Sep, Bipolar 1 disorder, mixed F3 1.60 [place] [address] [place] [id number] [place] [address] Sep, Other chronic pain G89.29 ; Hyperlipidemia, unspecified hyperlipidemia type E78.5 ; Breast cancer screening Z12.31 and Post menopausal syndrome N95.1 [facility] [address] [facility] [id number] [address] [place] [address] Sep, Bipolar 1 disorder, mixed F3 1.60 [facility] [address] [facility] [id number] [address] [place] [address] Sep, Bipolar 1 disorder, mixed F3 1.60 ; Generalized anxiety disorder F41.1 and Tobacco use disorder F17.200 [place] [address] [facility] [id number] [address] [place] [address] Sep, Gastritis without bleeding, unspecified chronicity, unspecified gastritis type K29.70 [place] [address] [facility] [id number] [address] [place] [address] 08 Sep, 2018 Exercise counseling Z71.82 [place] [address] [facility] [id number] [address] [place] [address] Aug, Exercise counseling Z71.82 [place] [address] [facility] [id number] [address] [place] [address] Aug, Bipolar 1 disorder, mixed F3 1.60 [place] [address] [place] [id number] [place] [address] Aug, Exercise counseling Z71.82 [place] [address] [place] [id number] [place] [address] Aug, Bipolar 1 disorder, mixed F3 1.60 [place] [address] [place] [id number] [place] [address] Aug, Gastritis without bleeding, unspecified chronicity, unspecified gastritis type K29.70 ; Tobacco abuse Z72.0 ; Generalized anxiety disorder F41.1 and Weight gain R63.5 [place] [address] [place] [id number] [place] [address] 14 Aug, 2018 Bipolar 1 disorder, mixed F3 1.60 ; Generalized anxiety disorder F41.1 and Tobacco use disorder F17.200 [place] [address] [facility] [id number] [address] [place] [address] Jul, Bipolar 1 disorder, mixed F3 1.60 [place] [address] [place] [id number] [place] [address] Jul, [place] [address] [facility] [id number] [address] [place] [address] Jul, Bipolar 1 disorder, mixed F3 1.60 [place] [address] [place] [id number] [place] [address] Jul, Allergic rhinitis J30.9 ; Ma darion depressive disorder, recurrent episode, moderate F33.1 and Tobacco 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 [facility] [address] [place] [id number] [place] [address] Jun, [facility] [address] [place] [id number] [place] [address] Jun, [facility] [address] [address] Jun, Bipolar 1 disorder, mixed F3 1.60 [place] [address] [address] Jun, Bipolar 1 disorder, mixed F3 1.60 [place] [address] [place] [id number] [place] [address] Jun, Bipolar 1 disorder, mixed F3 1.60 [place] [address] [address] Jun, Generalized anxiety disorder F41.1 ; Tobacco abuse Z72.0 and Major depressive disorder, recurrent episode, moderate F33.1 [place] [address] [place] [id number] [place] [address] May, Bipolar 1 disorder, mixed F3 1.60 [place] [address] [place] [id number] [place] [address] May, Bipolar 1 disorder, mixed F3 1.60 and Generalized anxiety disorder F41.1 [facility] [address] [place] [id number] [place] [address] May, Bipolar 1 disorder, mixed F3 1.60 [place] [address] [place] [id number] [place] [address] May, Allergic rhinitis J30.9 [facility] [address] [place] [id number] [place] [address] May, Bipolar 1 disorder, mixed F3 1.60 [facility] [address] [place] [id number] [place] [address] May, [facility] [address] [place] [id number] [place] [address] Apr, Allergic rhinitis J30.9 ; Dy sfunction of both eustachian tubes H69.83 ; History of bladder surgery Z98.890 and Cervicalgia M54.2 [facility] [address] [place] [id number] [place] [address] Mar, Bipolar 1 disorder, mixed F3 1.60 [place] [address] [place] [id number] [place] [address] Mar, [place] [address] [place] [id number] [place] [address] Mar, Slow transit constipation K5 9.01 ; Encounter for immunization Z23 and Generalized anxiety disorder F41.1 [facility] [address] [place] [id number] [place] [address] 27 Feb, 2018 Bipolar 1 disorder, mixed F3 1.60 [place] [address] [place] [id number] [place] [address] 26 Feb, 2018 Allergic rhinitis J30.9 [facility] [address] [place] [id number] [place] [address] 24 Feb, 2018 Bipolar 1 disorder, mixed F3 1.60 [facility] [address] [place] [id number] [place] [id number] 20 Feb, 2018 Bipolar 1 disorder, mixed F3 1.60 and Generalized anxiety disorder F41.1 [place] [address] [place] [id number] [place] [id number] 13 Feb, 2018 Bipolar 1 disorder, mixed F3 1.60 [facility] [address] [place] [id number] [place] [phone] 11 Feb, 2018 Allergic rhinitis J30.9 [facility] [address] [place] [id number] [place] [phone] Feb, [facility] [address] [facility] [id number] [address] [place] [address] Jan, Bipolar 1 disorder, mixed F3 1.60 [facility] [address] [facility] [id number] [address] [place], [place] [address] Jan, Low back pain M54.5 ; Hyperl ipidemia, unspecified hyperlipidemia type E78.5 and Bipolar 1 disorder, mixed F31.60 [facility] [address] [facility] [id number] [address] [place] [address] Jan, Bipolar 1 disorder, mixed F3 1.60 [place] [address] [facility] [id number] [address] [place] [address] Jan, Bipolar 1 disorder, mixed F3 1.60 [place] [address] [place] [id number] [place] [address] Jan, Bipolar 1 disorder, mixed F3 1.60 [place] [address] [facility] [id number] [address] [place] [address] Jan, Bipolar 1 disorder, mixed F3 1.60 [place] [address] [facility] [id number] [address] [place] [address] Dec, Bipolar 1 disorder, mixed F3 1.60 ; Generalized anxiety disorder F41.1 and Other long term care social worker (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 Z79.899 [place] [address] [facility] [id number] [address] [place] [address] Dec, Other detention (current) dr bin therapy Z79.899 [facility] [address] [facility] [id number] [address] [place] [address] Dec, Bipolar 1 disorder, mixed F3 1.60 [facility] [address] [facility] [id number] [address] [place] [address] Dec, Bipolar 1 disorder, mixed F3 1.60 [place] [address] [place] [id number] [place] [address] Nov, Bipolar 1 disorder, mixed F3 1.60 [facility] [address] [facility] [id number] [address] [place] [address] Nov, Bipolar 1 disorder, mixed F3 1.60 [facility] [address] [facility] [id number] [address] [place] [address] Nov, Bipolar 1 disorder, mixed F3 1.60 [facility] [address] [place] [id number] [place] [address] Nov, Allergic rhinitis J30.9 [facility] [address] [facility] [id number] [address] [place] [address] Nov, Allergic rhinitis J30.9 [facility] [address] [facility] [id number] [address] [place] [address] Nov, [facility] [address] [place] [id number] [place] [address] Nov, Bipolar 1 disorder, mixed F3 1.60 [facility] [address] [place] [id number] [place] [address] Nov, Fibromyalgia M79.7 and Aller gic rhinitis J30.9 [place] [address] [facility] [id number] [address] [place] [address] October, Bipolar 1 disorder, mixed F3 1.60 [facility] [address] [place] [id number] [place] [address] October, Acute nasopharyngitis J00 [facility] [address] [place] [id number] [place] [address] October, Bitten or stung by nonvenomo us insect and other nonvenomous arthropods, initial encounter W57.XXXA and Insect bite (nonvenomous) of abdominal wall, initial encounter S30.861A [facility] [address] [place] [id number] [place] [address] October, Insect bite (nonvenomous) of abdominal wall, initial encounter S30.861A ; Bitten or stung by nonvenomous insect and other nonvenomous arthropods, initial encounter W57.XXXA ; Allergic rhinitis J30.9 and Low back pain M54.5 [facility] [address] [facility] [id number] [address] [place] [address] October, Bipolar 1 disorder, mixed F3 1.60 [facility] [address] [place] [id number] [place] [address] October, [facility] [address] [facility] [id number] [address] [place] [address] October, [facility] [address] [place] [id number] [place] [address] October, Bipolar 1 disorder, mixed F3 1.60 [facility] [address] [place] [id number] [place] [address] Sep, Bipolar 1 disorder, mixed F3 1.60 [facility] [address] [place] [id number] [place] [address] Sep, Other chronic pain G89.29 [facility] [address] [place] [id number] [place] [address] Sep, [facility] [address] [place] [id number] [place] [address] Sep, Bipolar 1 disorder, mixed F3 1.60 [facility] [address] [place] [id number] [place] [address] Sep, Allergic rhinitis J30.9 and Sciatica of left side M54.32 [facility] [address] [place] [id number] [place] [address] Sep, Bipolar 1 disorder, mixed F3 1.60 [facility] [address] [place] [id number] [place] [phone] Sep, Bipolar 1 disorder, mixed F3 1.60 and Generalized anxiety disorder F41.1 [facility] [address] [place] [id number] [place] [address] Aug, [facility] [address] [facility] [id number] [address] [place] [address] Aug, Bipolar 1 disorder, mixed F3 1.60 [facility] [address] [facility] [id number] [address] [place] [address] Aug, Bipolar 1 disorder, mixed F3 1.60 [facility] [address] [facility] [id number] [address] [place] [address] Aug, [facility] [address] [facility] [id number] [address] [place] [address] Aug, Generalized anxiety disorder F41.1 [facility] [address] [facility] [id number] [address] [place] [address] Aug, Bipolar 1 disorder, mixed F3 1.60 [facility] [address] [place] [id number] [place] [address] Aug, Plantar wart of right foot B 07.0 [facility] [address] [facility] [id number] [address] [place] [address] Aug, Bipolar 1 disorder, mixed F3 1.60 [facility] [address] [facility] [id number] [address] [place] [address] Jul, Bipolar 1 disorder, mixed F3 1.60 [facility] [address] [facility] [id number] [address] [place] [address] Jul, [facility] [address] [facility] [id number] [address] [place] [address] 14 Jul, 2017 Bipolar 1 disorder, mixed F3 1.60 [facility] [address] [facility] [id number] [address] [place] [address] 09 Jul, 2017 Generalized anxiety disorder F41.1 [facility] [address] [facility] [id number] [address] [place] [address] 07 Jul, 2017 Bipolar 1 disorder, mixed F3 1.60 [facility] [address] [place] [id number] [place] [address] 07 Jul, 2017 Acute left-sided low back pa in with left-sided sciatica M54.42 [place] [address] [place] [id number] [place] [address] 05 Jul, 2017 Coccydynia M53.3 [place] [address] [place] [id number] [place] [address] Jun, Bipolar 1 disorder, mixed F3 1.60 [facility] [address] [place] [id number] [place] [address] Jun, Acute nasopharyngitis J00 [place] [address] [place] [id number] [place] [address] Jun, Bipolar 1 disorder, mixed F3 1.60 [place] [id number] [place] [address] Jun, Fibromyalgia M79.7 [place] [address] [place] [id number] [place] [address] Jun, Bipolar 1 disorder, mixed F3 1.60 [place] [address] [address] Jun, Fibromyalgia M79.7 and Bipol ar 1 disorder, mixed F31.60 [place] [address] [place] [id number] [place] [address] May, Bipolar 1 disorder, mixed F3 1.60 ; Generalized anxiety disorder F41.1 and Other detention (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 Z79.899 [place] [address] [place] [id number] [place] [address] May, Bipolar 1 disorder, mixed F3 1.60 [facility] [address] [place] [id number] [place] [address] May, Cough R05 and Body aches R52 [facility] [address] [place] [id number] [place] [address] 10 May, 2017 Bladder spasm N32.89 [address]u te cystitis without hematuria N30.00 [facility] [address] 07 May, 2017 Bipolar 1 disorder, mixed F3 1.60 [facility] [address] 30 Apr, 2017 [place] [address] Apr, Major depressive disorder, r ecurrent episode, moderate F33.1 and Encounter for immunization Z23 [place] [address] Apr, Bipolar 1 disorder, mixed F3 1.60 [place] [address] Apr, Bipolar 1 disorder, mixed F3 1.60 [place] [address] [address] 16 Apr, 2017 Bipolar 1 disorder, mixed F3 1.60 [place] [address] Apr, Yeast vaginitis B37.3 [place] [address] [address] 09 Apr, 2017 Bipolar 1 disorder, mixed F3 1.60 [facility] [address] [address] 07 Apr, 2017 Cellulitis L03[address] for immunization Z23 [facility] [address] [place] [id number] 02 Apr, 2017 Bipolar 1 disorder, mixed F3 1.60 [facility] [address] [address] Mar, Bipolar 1 disorder, mixed F3 1.60 [place] [address] [place] [address] Mar, Bipolar 1 disorder, mixed F3 1.60 [place] [address] [address] Mar, Imbalance R26.89 [address] er for immunization Z23 [place] [address] [address] Mar, Generalized anxiety disorder F41.1 [place] [address] [place] [address] Mar, Bipolar 1 disorder, mixed F3 1.60 [place] [address] [address] Mar, Generalized anxiety disorder F41.1 [place] [address] [address] Mar, Bipolar 1 disorder, mixed F3 1.60 [place] [address] [address] Mar, Bipolar 1 disorder, mixed F3 1.60 [place] [address] [address] Feb, Bipolar 1 disorder, mixed F3 1.60 [place] [address] [address] Feb, Bipolar 1 disorder, mixed F3 1.60 and Generalized anxiety disorder F41.1 [place] [address] [address] Feb, Gastritis without bleeding, unspecified chronicity, unspecified gastritis type K29.70 ; Hammer toe of right foot M20.41 and Other viral warts B07.8 [place] [address] [id number] Feb, Bipolar 1 disorder, mixed F3 1.60 [place] [address] [id number] Feb, Bipolar 1 disorder, mixed F3 1.60 [facility] [address] [place] [id number] [place] [id number] 05 Feb, 2017 Bipolar 1 disorder, mixed F3 1.60 [facility] [address] [facility] [id number] [address] [place] [id number] Jan, Encounter for screening mamm ogram for breast cancer Z12.31 ; Other viral warts B07.8 and Allergic rhinitis J30.9 [facility] [address] [facility] [id number] [address] [place] [id number] Jan, Bipolar 1 disorder, mixed F3 1.60 [place] [address] [place] [id number] [place] [id number] Jan, Bipolar 1 disorder, mixed F3 1.60 [place] [address] [place] [id number] [place] [id number] 14 Jan, 2017 [place] [address] [place] [id number] [place] [phone] Jan, Bipolar 1 disorder, mixed F3 1.60 [place] [address] [place] [id number] [place] [id number] Jan, Bipolar 1 disorder, mixed F3 1.60 [place] [address] [place] [id number] [place] [phone] Jan, Allergic rhinitis J30.9 ; He maturia R31.9 and Colon cancer screening Z12.11 [facility] [address] [place] [id number] [place] [id number] Dec, Bipolar 1 disorder, mixed F3 1.60 [place] [address] [place] [id number] [place] [phone] 18 Dec, 2016 Bipolar 1 disorder, mixed F3 1.60 ; Generalized anxiety disorder F41.1 and Other long term care social worker (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 Z79.899 [place] [address] [place] [id number] [place] [address] Dec, Bipolar 1 disorder, mixed F3 1.60 [facility] [address] [facility] [id number] [address] [place] [address] Dec, Bipolar 1 disorder, mixed F3 1.60 [facility] [address] [facility] [id number] [address] [place] [address] Dec, Bipolar 1 disorder, mixed F3 1.60 [facility] [address] [facility] [id number] [address] [place] [address] Dec, Low back pain M54.5 and Recu rrent urinary tract infection N39.0 [facility] [address] [facility] [id number] [address] [place] [address] Nov, Bipolar 1 disorder, mixed F3 1.60 [facility] [address] [facility] [id number] [address] [place] [address] Nov, Bipolar 1 disorder, mixed F3 1.60 [facility] [address] [facility] [id number] [address] [place] [address] Nov, Bipolar 1 disorder, mixed F3 1.60 [facility] [address] [facility] [id number] [address] [place] [address] Nov, Bipolar 1 disorder, mixed F3 1.60 [facility] [address] [facility] [id number] [address] [place] [address] Nov, [facility] [address] [facility] [id number] [address] [place] [address] Nov, Anesthesia of skin R20.0 ; F requent UTI N39.0 ; Tobacco abuse Z72.0 and Colon cancer screening Z12.11 [facility] [address] [facility] [id number] [address] [place] [address] Nov, Bipolar 1 disorder, mixed F3 1.60 [facility] [address] [facility] [id number] [address] [place] [address] October, Bipolar 1 disorder, mixed F3 1.60 [facility] [address] [facility] [id number] [address] [place] [address] October, Bipolar 1 disorder, mixed F3 1.60 [facility] [address] [address] October, Bipolar 1 disorder, mixed F3 1.60 [facility] [address] [place] [id number] [place] [address] October, Bipolar 1 disorder, mixed F3 1.60 [place] [address] [address] October, Bipolar 1 disorder, mixed F3 1.60 [place] [address] [address] October, Cervicalgia M54.2 and Bipola r 1 disorder, mixed F31.60 [place] [address] [address] October, Hypertension I10 ; Hyperlipi demia, unspecified hyperlipidemia type E78.5 and Family history of thyroid disease Z83.49 [place] [address] [address] October, [place] [address] [address] October, Hypertension I10 ; Hyperlipi demia, unspecified hyperlipidemia type E78.5 and Family history of thyroid problem Z83.49 [place] [address] [place] [id number] [address] [place] [address] October, Bipolar 1 disorder, mixed F3 1.60 [place] [address] [place] [id number] [address] [place] [address] Sep, Bipolar 1 disorder, mixed F3 1.60 [place] [address] [address] Sep, Bipolar 1 disorder, mixed F3 1.60 [place] [address] [address] Sep, Bipolar 1 disorder, mixed F3 1.60 [facility] [address] [place] [id number] [address] [place] [address] Sep, History of colon polyps Z86. 010 and Hematochezia K92.1 [facility] [address] [facility] [id number] [address] [place] [address] Sep, Major depressive disorder, r ecurrent episode, moderate F33.1 [facility] [address] [place] [id number] [address] [place] [address] Sep, Bipolar 1 disorder, mixed F3 1.60 [facility] [address] [place] [id number] [place] [address] Aug, Hot flashes due to menopause N95.1 [facility] [address] [place] [id number] [place] [address] Aug, Bipolar 1 disorder, mixed F3 1.60 [facility] [id number] [place] [address] Aug, [facility] [address] [place] [id number] [address] [place] [address] Aug, Bipolar 1 disorder, mixed F3 1.60 [facility] [address] [place] [id number] [address] [place] [address] Aug, Bipolar 1 disorder, mixed F3 1.60 [facility] [id number] [place] [address] Aug, Hot flashes due to menopause N95.1 ; Cervicalgia M54.2 and Ataxia R27.0 [facility] [address] [place] [id number] [address] [place] [address] Jul, Bipolar 1 disorder, mixed F3 1.60 [facility] [address] [place] [id number] [address] [place] [address] Jul, Bipolar 1 disorder, mixed F3 1.60 [facility] [address] [address] Jul, Bipolar 1 disorder, mixed F3 1.60 [place] [address] [place] [id number] 13 Jul, 2016 Bipolar 1 disorder, mixed F3 1.60 [place] [address] [place] [address] 10 Jul, 2016 Bipolar 1 disorder, mixed F3 1.60 [place] [address] [place] 214822[address] 08 Jul, 2016 Cervicalgia M54.2 ; Tremor R 25.1 ; Hearing abnormally acute, unspecified laterality H93.239 ; Alopecia L65.9 ; Encounter for immunization Z23 and Family history of thyroid disease Z83.49 [place] [address] [address] Jul, Bipolar 1 disorder, mixed F3 1.60 [place] [address] [address] Jun, [place] [address] [place] 2[address]22[address] Jun, Hearing disorder, unspecifie d laterality H93.299 [place] [address] [address] Jun, Bipolar 1 disorder, mixed F3 1.60 [place] [address] [address] Jun, Bipolar 1 disorder, mixed F3 1.60 [place] [address] [address] Jun, Allergic rhinitis J30.9 [place] [address] [address] Jun, Bipolar 1 disorder, mixed F3 1.60 [place] [address] [address] Jun, Bipolar 1 disorder, mixed F3 1.60 [facility] [address] [facility] [id number] [address] [place] [address] Jun, Allergic rhinitis J30.9 [facility] [address] [facility] [id number] [address] [place] [address] Jun, Allergic rhinitis J30.9 [facility] [address] [facility] [id number] [address] [place] [address] Jun, Bipolar 1 disorder, mixed F3 1.60 [facility] [address] [id number] [address] [place] [address] May, Bipolar 1 disorder, mixed F3 1.60 [facility] [address] [facility] [id number] [address] [place] [address] May, Bipolar 1 disorder, mixed F3 1.60 [facility] [address] [facility] [id number] [address] [place] [address] May, [facility] [address] [facility] [id number] [address] [place] [address] May, Bipolar 1 disorder, mixed F3 1.60 [facility] [address] [facility] [id number] [address] [place] [address] May, Bipolar 1 disorder, mixed F3 1.60 [facility] [address] [facility] [id number] [address] [place] [address] May, [facility] [address] [facility] [id number] [address] [place] [address] May, [facility] [address] [facility] [id number] [address] [place] [address] May, [facility] [address] [facility] [id number] [address] [place] [address] May, Abdominal pain, unspecified location R10.9 [facility] [address] [facility] [id number] [address] [place] [address] May, [facility] [address] [address] Apr, Hematuria R31.9 ; Ataxia R27 .0 and Hearing loss, unspecified laterality H91.90 [facility] [address] [address] Apr, Bipolar 1 disorder, mixed F3 1.60 [facility] [address] [address] Apr, Acute effusion of both middl e ears H65.193 [place] [address] [address] Apr, Hematuria R31.9 and Pyelonep hritis N12 [place] [address] [address] Apr, [place] [address] [address] Mar, Bipolar 1 disorder, mixed F3 1.60 [place] [address] [address] Mar, [place] [address] [address] Mar, Bipolar 1 disorder, mixed F3 1.60 [place] [address] [address] Mar, Bipolar 1 disorder, mixed F3 1.60 [place] [address] [address] Mar, Encounter for immunization Z 23 and Gastritis without bleeding, unspecified chronicity, unspecified gastritis type K29.70 [place] [address] [address] Mar, Bipolar 1 disorder, mixed F3 1.60 and Grief F43.20 [place] [address] [address] Mar, Gastritis without bleeding, unspecified chronicity, unspecified gastritis type K29.70 [facility] [address] [place] [id number] [address] [place] [address] Mar, Bipolar 1 disorder, mixed F3 1.60 [place] [address] [place] [id number] [address] [place], [place] [id number] Mar, Gastritis without bleeding, unspecified chronicity, unspecified gastritis type K29.70 [facility] [address] [place] [id number] [address] [place] [address] Mar, [place] [address] [place] [id number] [address] [place] [address] Feb, Bipolar 1 disorder, mixed F3 1.60 [place] [address] [place] [id number] [place] [address] Feb, Bipolar 1 disorder, mixed F3 1.60 and Grief F43.20 [place] [address] [place] [id number] [address] [place] [address] Feb, Gastritis without bleeding, unspecified chronicity, unspecified gastritis type K29.70 [place] [address] [place] 2[address]22[address] 14 Feb, 2016 Bipolar 1 disorder, mixed F3 1.60 [facility] [address] [place] [id number] [address] [place] [address] Feb, Gastroesophageal reflux dise ase, esophagitis presence not specified K21.9 [facility] [address] [place] [id number] [address] [place] [address] Jan, Bipolar 1 disorder, mixed F3 1.60 [place] [address] [place] 2[address] Jan, Bipolar 1 disorder, mixed F3 1.60 and Unsteady gait R26.81 [place] [address] [place] [id number] [address] [place] [address] Jan, Bipolar 1 disorder, mixed F3 1.60 [place] [address] [facility] [id number] [address] [place] [address] Jan, Bipolar 1 disorder, mixed F3 1.60 and Other detention (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 Z79.899 [facility] [address] [facility] [id number] [address] [place] [address] Jan, Bipolar 1 disorder, mixed F3 1.60 [place] [address] [place] [id number] [address] [place] [address] Jan, Bipolar 1 disorder, mixed F3 1.60 [place] [address] [facility] [id number] [address] [place] [address] Jan, Bipolar 1 disorder, mixed F3 1.60 ; Grief F43.20 and Other detention (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 Z79.899 [place] [address] [place] [id number] [address] [place] [address] Jan, Bipolar 1 disorder, mixed F3 1.60 [place] [address] [place] [id number] [address] [place] [address] Dec, [place] [address] [place] [id number] [address] [place] [address] Dec, Bipolar 1 disorder, mixed F3 1.60 ; Vitamin D deficiency, unspecified E55.9 ; H/O allergic rhinitis Z87.09 ; Other chronic pain G89.29 and Dorsalgia, unspecified M54.9 [place] [address] [facility] [id number] [address] [place] [address] Dec, [place] [address] [place] [id number] [address] [place] [address] Dec, Bipolar 1 disorder, mixed F3 1.60 [place] [address] [place] [id number] [address] [place] [address] Dec, Major depressive disorder, r ecurrent episode, moderate F33.1 [place] [address] [place] [id number] [address] [place] [address] Dec, Major depressive disorder, r ecurrent episode, moderate F33.1 [place] [address] [facility] [id number] [address] [place] [address] Nov, [place] [address] [place] [id number] [address] [place] [address] Nov, Bipolar 1 disorder, mixed F3 1.60 [place] [id number] [place] [address] Nov, Major depressive disorder, r ecurrent episode, moderate F33.1 [place] [address] [place] [id number] [address] [place] [address] Nov, Cervicalgia M54.2 ; Arthralg ia of hip, unspecified laterality M25.559 ; Allergic rhinitis J30.9 and Hormone replacement therapy Z79.890 [facility] [address] [place] [id number] [address] [place] [address] Nov, Other seasonal allergic rhin itis J30.2 [place] [address] [place] [id number] [address] [place] [address] October, Major depressive disorder, r ecurrent episode, moderate F33.1 [place] [address] [place] [id number] [address] [place] [address] October, Major depressive disorder, r ecurrent episode, moderate F33.1 and Arthralgia of hip, unspecified laterality M25.559 [place] [address] [place] [id number] [address] [place] [address] October, Grief F43.20 ; Hypertension I10 ; Hyperlipidemia, unspecified hyperlipidemia type E78.5 ; Other chronic pain G89.29 and Allergic rhinitis, unspecified allergic rhinitis type J30.9 [place] [address] [place] [id number] [address] [place] [address] October, Major depressive disorder, r ecurrent episode, moderate F33.1 [place] [address] [place] [address] Sep, Major depressive disorder, r ecurrent episode, moderate F33.1 [facility] [address] [id number] [address] [place] [address] Sep, [facility] [address] [facility] [id number] [address] [place] [address] Sep, Major depressive disorder, r ecurrent episode, moderate F33.1 [facility] [address] [facility] [id number] [address] [place] [address] Sep, Grief F43.20 [facility] [address] [facility] [id number] [address] [place] [address] Aug, Major depressive disorder, r ecurrent episode, moderate F33.1 [place] [address] [facility] [id number] [address] [place] [address] Aug, Bipolar 1 disorder, mixed F3 1.60 [place] [address] [facility] [id number] [address] [place] [address] Aug, Allergic rhinitis J30.9 ; Ce rvicalgia M54.2 and Low back pain M54.5 [place] [address] [facility] [id number] [address] [place] [address] Aug, Major depressive disorder, r ecurrent episode, moderate F33.1 [facility] [address] [facility] [id number] [address] [place] [address] Aug, Sinusitis J32.9 and Tobacco 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 [facility] [address] [facility] [id number] [address] [place] [address] Aug, [facility] [address] [facility] [id number] [address] [place] [address] Aug, Depressive disorder, not els ewhere classified F32.9 ; Hormone replacement therapy Z79.[address] scan, head R93.0 [place] [address] [facility] [id number] [address] [place] [address] Aug, Major depressive disorder, r ecurrent episode, moderate F33.1 [facility] [address] [id number] [address] [place] [address] Jul, Major depressive disorder, r ecurrent episode, moderate F33.1 [facility] [address] [id number] [address] [place] [address] 17 Jul, 2015 Abdominal pain R10.9 and Hyp ertension I10 [facility] [address] [id number] [address] [place] [address] Jul, [facility] [address] [id number] [address] [place] [address] Jul, Major depressive disorder, r ecurrent episode, moderate F33.1 [facility] [address] [id number] [address] [place] [address] 04 Jul, 2015 [facility] [address] [id number] [address] [place] [address] Jul, [facility] [address] [id number] [address] [place] [address] Jun, [facility] [address] [facility] [id number] [address] [place] [address] Jun, Depressive disorder, not els ewhere classified F32.9 [facility] [address] [id number] [address] [place] [address] Jun, [facility] [address] [id number] [address] [place] [address] Jun, [facility] [address] [facility] [id number] [address] [place] [address] Jun, Arthralgia of hip, unspecifi ed laterality M25.559 ; Bruising, spontaneous R23.3 and Night sweats R61 [facility] [address] [id number] [address] [place] [address] Jun, [facility] [address] [facility] [id number] [address] [place] [address] Jun, [facility] [address] [id number] [address] [place] [address] May, [facility] [address] [facility] [id number] [address] [place] [address] May, Myalgia M79.1 and Screening, lipid Z13.220 [facility] [address] [place] [id number] [address] [place] [address] Apr, Status post cervical spinal fusion Z98.1 ; Fibromyalgia M79.7 and Unsteady gait R26.81 [facility] [address] [id number] [address] [place] [address] Nov, [facility] [address] [id number] [address] [place] [address] Nov, [facility] [address] [place] [id number] [address] [place] [address] October, [facility] [address] [id number] [address] [place] [address] October, [facility] [address] [place] [id number] [address] [place] [address] October, [facility] [address] [place] [id number] [address] [place] [address] October, [facility] [address] [facility] [id number] [address] [place] [address] October, [facility] [address] [facility] [id number] [address] [place] [address] October, Dysuria 788.1 ; Nausea 787.0 2 and Urinary tract infection 599.0 [facility] [address] [id number] [address] [place] [address] 14 Sep, 2014 [facility] [address] [facility] [id number] [address] [place] [address] Sep, [facility] [address] [id number] [facility] [place] [address] 25 Aug, 2014 [facility] [address] [id number] [address] [place] [address], [place] [address] 25 Aug, 2014 [facility] [address] [id number] [address] [place] [address], [place] [address] 24 Aug, 2014 [facility] [address] [id number] [address] [place] [address], [place] [address] 24 Aug, 2014 [facility] [address] [id number] [address] [place] [address], [place] [address] 23 Aug, 2014 [facility] [address] [id number] [address] [place] [address], [place] [address] 19 Aug, 2014 [facility] [address] [id number] [address] [place] [address], [place] [address] 19 Aug, 2014 [facility] [address] [id number] [address] [place] [address], [place] [address] 19 Aug, 2014 [facility] [address] [id number] [address] [place] [address], [place] [address] 19 Aug, 2014 [facility] [address] [id number] [address] [place] [address], [place] [address] 18 Aug, 2014 [facility] [address] [id number] [address] [place] [address], [place] [address] 18 Aug, 2014 [facility] [address] [id number] [address] [place] [address], [place] [address] 13 Aug, 2014 [facility] [address] [id number] [address] [place] [address], [place] [address] 13 Aug, 2014 [facility] [address] [id number] [address] [place] [address], [place] [address] 11 Aug, 2014 [facility] [address] [id number] [address] [place] [address], [place] [address] 11 Aug, 2014 [facility] [address] [id number] [address] [place] [address], [place] [address] Aug, 2014 [facility] [address] [id number] [address] [place] [address], [place] [address] Aug, [facility] [address] [id number] [address] [place] [address], [place] [address] Aug, 2014 [facility] [address] [id number] [address] [place] [address], [place] [address] Aug, 2014 [facility] [address] [id number] [address] [place] [address], [place] [address] Aug, 2014 [facility] [address] [id number] [address] [place] [address], [place] [address] Aug, [facility] [address] [id number] [address] [place] [address], [place] [address] Aug, [facility] [address] [id number] [address] [place] [address], [place] [address] Jul, 2014 [facility] [address] [id number] [address] [place] [address], [place] [address] Jul, 2014 [facility] [address] [id number] [address] [place] [address], [place] [address] Jul, 2014 [facility] [address] [id number] [address] [place] [address], [place] [address] Jul, 2014 [facility] [address] [id number] [address] [place] [address], [place] [address] Jul, 2014 [facility] [address] [id number] [address] [place] [address], [place] [address] Jul, 2014 [facility] [address] [id number] [address] [place] [address], [place] [address] Jul, 2014 [facility] [address] [id number] [address] [place] [address], [place] [address] Jul, 2014 [facility] [address] [id number] [address] [place] [address], [place] [address] Jul, 2014 [facility] [address] [id number] [address] [place] [address], [place] [address] Jul, 2014 [facility] [address] [id number] [address] [place] [address], [place] [address] Jul, 2014 [facility] [address] [id number] [address] [place] [address], [place] [address] Jul, 2014 [facility] [address] [id number] [address] [place] [address], [place] [address] Jul, 2014 [facility] [address] [id number] [address] [place] [address], [place] [address] Jul, 2014 [facility] [address] [id number] [address] [place] [address], [place] [address] Jun, [facility] [address] [id number] [address] [place] [address], [place] [address] Jun, [facility] [address] [id number] [address] [place] [address], [place] [address] Jun, [facility] [address] [id number] [address] [place] [address], [place] [address] Jun, [facility] [address] [id number] [address] [place] [address], [place] [address] Jun, [facility] [address] [id number] [address] [place] [address], [place] [address] Jun, [facility] [address] [id number] [address] [place] [address], [place] [address] May, [facility] [address] [id number] [address] [place] [address], [place] [address] May, [facility] [address] [id number] [address] [place] [address], [place] [address] May, [facility] [address] [id number] [address] [place] [address], [place] [address] May, [facility] [address] [id number] [place] [address] May, [facility] [address] [id number] [address] [place] [address], [place] [address] May, [facility] [address] [id number] [address] [place] [address], [place] [address] Apr, [facility] [address] [id number] [address] [place] [address], [place] [address] Apr, [facility] [address] [id number] [address] [place] [address] Apr, [facility] [address] [id number] [address] [place] [address], [place] [address] Apr, [facility] [address] [id number] [address] [place] [address] Apr, [facility] [address] [id number] [address] [place] [address], [place] [address] Apr, [facility] [address] [id number] [address] [place] [address] Mar, [facility] [address] [id number] [address] [place] [address] Mar, [facility] [address] [id number] [address] [place] [address] Mar, [facility] [address] [id number] [address] [place] [address] Mar, [facility] [address] [id number] [address] [place] [address] Mar, [facility] [address] [id number] [address] [place] [address], [place] [address] Mar, [facility] [address] [id number] [address] [place] [address] Mar, [facility] [address] [id number] [address] [place] [address] Mar, [facility] [address] [id number] [address] [place] [address], [place] [address] Mar, [facility] [address] [id number] [address] [place] [address], [place] [address] Mar, [facility] [address] [id number] [address] [place] [address], [place] [address] Mar, [facility] [address] [id number] [address] [place] [address], [place] [address] Mar, [facility] [address] [id number] [address] [place] [address], [place] [address] 30 Feb, 2014 [facility] [address] [id number] [address] [place] [address], [place] [address] 29 Feb, 2014 [facility] [address] [id number] [address] [place] [address], [place] [address] Feb, [facility] [address] [id number] [address] [place] [address], [place] [address] Feb, [facility] [address] [id number] [address] [place] [address], [place] [address] Feb, [facility] [address] [id number] [address] [place] [address], [place] [address] Feb, [facility] [address] [id number] [address] [place] [address], [place] [address] Feb, [facility] [address] [id number] [address] [place] [address], [place] [address] Jan, [facility] [address] [id number] [address] [place] [address], [place] [address] Jan, [facility] [address] [id number] [address] [place] [address], [place] [address] Jan, [facility] [address] [id number] [address] [place] [address], [place] [address] Dec, [facility] [address] [id number] [address] [place] [address], [place] [address] Dec, [facility] [address] [id number] [address] [place] [address], [place] [address] Dec, [facility] [address] [id number] [address] [place] [address], [place] [address] Dec, [facility] [address] [id number] [address] [place] [address], [place] [address] Sep, [facility] [address] [id number] [address] [place] [address], [place] [address] Sep, [facility] [address] [id number] [address] [place] [address], [place] [address] Sep, [facility] [address] [id number] [address] [place] [address], [place] [address] Sep, [facility] [address] [id number] [address] [place] [address], [place] [address] Sep, [facility] [address] [id number] [address] [place] [address], [place] [address] Sep, [facility] [address] [id number] [address] [place] [address], [place] [address] Sep, [facility] [address] [id number] [address] [place] [address], [place] [address] Sep, [facility] [address] [id number] [address] [place] [address], [place] [address] Aug, [facility] [address] [id number] [address] [place] [address], [place] [address] Aug, [facility] [address] [id number] [address] [place] [address], [place] [address] May, [facility] [address] [id number] [address] [place] [address], [place] [address] May, [facility] [address] [id number] [address] [place] [address], [place] [address] Apr, [facility] [address] [id number] [address] [place] [address], [place] [address] Apr, [facility] [address] [id number] [address] [place] [address], [place] [address] Apr, [facility] [address] [id number] [address] [place] [address], [place] [address] Apr, [facility] [address] [id number] [address] [place] [address], [place] [address] Apr, [facility] [address] [id number] [address] [place] [address], [place] [address] Apr, [facility] [address] [id number] [address] [place] [address], [place] [address] May, [facility] [address] [id number] [address] [place] [address], [place] [address] May, [facility] [address] [id number] [address] [place] [address], [place] [address] May, [facility] [address] [id number] [address] [place] [address], [place] [address] May, [facility] [address] [id number] [address] [place] [address], [place] [address] May, [facility] [address] [id number] [address] [place] [address], [place] [address] May, [facility] [address] [id number] [address] [place] [address], [place] [address] Apr, [facility] [address] [id number] [address] [place] [address], [place] [address] Apr, [facility] [address] [id number] [address] [place] [address], [place] [address] Apr, [facility] [address] [id number] [address] [place] [address], [place] [address] Apr, [facility] [address] [id number] [address] [place] [address], [place] [address] Apr, [facility] [address] [id number] [address] [place] [address], [place] [address] 08 Apr, 2012 [facility] [address] [id number] [address] [place] [address], [place] [address] 07 Apr, 2012 [facility] [address] [id number] [address] [place] [address], [place] [address] Apr, [facility] [address] [id number] [address] [place] [address], [place] [address] Apr, [facility] [address] [id number] [address] [place] [address], [place] [address] Apr, [facility] [address] [id number] [address] [place] [address], [place] [address] Mar, [facility] [address] [id number] [address] [place] [address], [place] [address] Mar, [facility] [address] [id number] [address] [place] [address], [place] [address] Mar, [facility] [address] [id number] [address] [place] [address], [place] [address] Mar, [facility] [address] [id number] [address] [place] [address], [place] [address] Mar, [facility] [address] [id number] [address] [place] [address], [place] [address] Mar, [facility] [address] [id number] [address] [place] [address], [place] [address] Mar, [facility] [address] [id number] [address] [place] [address], [place] [address] Mar, [facility] [address] [id number] [address] [place] [address], [place] [address] Mar, [facility] [address] [id number] [address] [place] [address], [place] [address] 25 Feb, 2012 [facility] [address] [id number] [address] [place] [address], [place] [address] 16 Feb, 2012 [facility] [address] [id number] [address] [place] [address], [place] [address] 11 Feb, 2012 [facility] [address] [id number] [address] [place] [address], [place] [address] Jan, [facility] [address] [id number] [address] [place] [address], [place] [address] Jan, [facility] [address] [id number] [address] [place] [address], [place] [address] Jan, [facility] [address] [id number] [address] [place] [address], [place] [address] Jan, [facility] [address] [id number] [address] [place] [address], [place] [address] Jan, [facility] [address] [id number] [address] [place] [address], [place] [address] Jan, [facility] [address] [id number] [address] [place] [address], [place] [address] Jan, [facility] [address] [id number] [address] [place] [address], [place] [address] Jan, [facility] [address] [id number] [address] [place] [address], [place] [address] Jan, [facility] [address] [id number] [address] [place] [address], [place] [address] Jan, [facility] [address] [id number] [address] [place] [address], [place] [address] Dec, [facility] [address] [id number] [address] [place] [address], [place] [address] Dec, [facility] [address] [id number] [address] [place] [address], [place] [address] Dec, [facility] [address] [id number] [address] [place] [address], [place] [address] Dec, [facility] [address] [id number] [address] [place] [address], [place] [address] 11 Nov, 2011 [facility] [address] [id number] [address] [place] [address], [place] [address] 08 Nov, 2011 [facility] [address] [id number] [address] [place] [address], [place] [address] Nov, [facility] [address] [id number] [address] [place] [address], [place] [address] October, [facility] [address] [id number] [address] [place] [address], [place] [address] October, [facility] [address] [id number] [address] [place] [address], [place] [address] October, [facility] [address] [id number] [address] [place] [address], [place] [address] October, [facility] [address] [id number] [address] [place] [address], [place] [address] October, [facility] [address] [id number] [address] [place] [address], [place] [address] October, [facility] [address] [id number] [address] [place] [address], [place] [address] Aug, [facility] [address] [id number] [address] [place] [address], [place] [address] Mar, [facility] [address] [id number] [address] [place] [address], [place] [address] 16 Nov, 2010 [facility] [address] [id number] [address] [place] [address], [place] [address] May, [facility] [address] [id number] [address] [place] [address], [place] [address] May, [facility] [address] [id number] [address] [place] [address], [place] [address] Apr, [facility] [address] [id number] [address] [place] [address], [place] [address] 15 Mar, 2010 [facility] [address] [facility] [id number] [address] [place] [address] 15 Mar, 2010 IMMUNIZATIONS No Known Immunizations [...]
--- OUTSIDE RECORDS SUMMARY | 2019-06-19 05:09 | XMS REPORT ---
Author Author Sydnie HENRIQUEZ Organization 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 Name Role Phone KATELYN HENRIQUEZ Unavailable PROBLEMS Type Condition ICD9-CM Code XAC67-MB Code Onset Dates Condition S tatus SNOMED Code Problem Age-related osteoporosis without current pathological fracture M81.0 Active 39025956 Problem Sensorineural hearing loss (SNHL) of both ears H90 .3 Active 052859501 Problem Ab[address] CT scan, head R93.0 Active 406579944 Problem Arthralgia of hip, unspecified laterality M25.559 Active 00321397 Problem Bruising, spontaneous R23.3 Active 964246301 Problem Hypertension I10 Active 1847734 3 Problem Night sweats R61 Active 3600871 0 Problem Imbalance R26.89 Active 960699398 Problem Hammer toe of right foot M20.41 Activ e 174936474 Problem Hormone replacement therapy Z79.890 Ac tive 396329702 Problem Bipolar 1 disorder, mixed F31.60 Acti ve 64581397 Problem Gastritis without bleeding, unspecified chronicity, unspecified gastritis type K29.70 Active 198625788 Problem Ataxia R27.0 Active 33818614 Problem Hearing loss, unspecified laterality H91.90 Active 48630156 Problem History of colon polyps Z86.010 Active 720536599 Problem Allergic rhinitis J30.9 Active 61 302803 Problem Hematuria, unspecified type R31.9 Ac tive 55773027 Problem Generalized anxiety disorder F41.1 A ctive 96079866 Problem Major depressive disorder, recurrent episode, moderate F33.1 Active 530342132 Problem Fibromyalgia M79.7 Active 4844216 7 Problem Bladder spasm N32.89 Active 565657 006 Problem Tobacco use disorder F17.200 Active 314642054 Problem Other chronic pain G89.29 Active 8 4381672 Problem Post menopausal syndrome N95.1 Activ e 607571692 Problem Grief F43.20 Active 13540243 Problem Hyperlipidemia, unspecified hyperlipidemia type E7 8.5 Active 98001039 Problem Acute left-sided low back pain with left-sided sciatica M54.42 Active 371764805 Problem Sciatica of left side M54.32 Active 19815314 Problem Plantar wart of right foot B07.0 Act mitchell [id number] Problem Slow transit constipation K59.01 Acti ve [id number] ALLERGIES No Information ENCOUNTERS Encounter Location Date Diagnosis [facility] [id number] [place] [address] Jan, [facility] [id number] [place] [address] Jan, [facility] [address] [address] Jan, [facility] [address] [address] Jan, [facility] [address] [address] Dec, Normal pelvic exam Z01.419 [place] [address] [address] Dec, Bipolar 1 disorder, mixed F3 1.60 [facility] [id number] [place] [address] Nov, Bipolar 1 disorder, mixed F3 1.60 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 [id number] [place] [address] Nov, [facility] [id number] [place] [address] Nov, Bipolar 1 disorder, mixed F3 1.60 [place] [address] [place] [address] October, Bipolar 1 disorder, mixed F3 1.60 [place] [address] [place] [id number] [place] [address] October, Bipolar 1 disorder, mixed F3 1.60 [place] [address] [place] [id number] [place] [address] October, [place] [address] [place] [address] October, Bipolar 1 disorder, mixed F3 1.60 ; Generalized anxiety disorder F41.1 and Tobacco use disorder F17.200 [place] [id number] [place] [address] Sep, [place] [address] [address] Sep, Encounter for Medicare annua wellness exam Z00.00 ; Major depressive disorder, recurrent episode, moderate F33.1 ; Allergic rhinitis J30.9 ; Bipolar 1 disorder, mixed F31.60 ; Fibromyalgia M79.7 ; Hyperlipidemia, unspecified hyperlipidemia type E78.5 ; Hormone replacement therapy Z79.890 ; Encounter for screening for lung cancer Z12.2 and Tobacco use disorder F17.200 [place] [id number] [place] [address] Sep, Bipolar 1 disorder, mixed F3 1.60 [place] [id number] [place] [address] Sep, Other chronic pain G89.29 ; Hyperlipidemia, unspecified hyperlipidemia type E78.5 ; Breast cancer screening Z12.31 and Post menopausal syndrome N95.1 [place] [address] [place] [id number] [place] [address] Sep, Bipolar 1 disorder, mixed F3 1.60 [place] [address] [place] [id number] [place] [address] Sep, Bipolar 1 disorder, mixed F3 1.60 ; Generalized anxiety disorder F41.1 and Tobacco use disorder F17.200 [place] [id number] [place] [address] Sep, Gastritis without bleeding, unspecified chronicity, unspecified gastritis type K29.70 [place] [address] [place] [id number] [place] [address] Sep, Exercise counseling Z71.82 [place] [address] [place] [address] Aug, Exercise counseling Z71.82 [place] [address] [address] Aug, Bipolar 1 disorder, mixed F3 1.60 [place] [address] [address] [id number] [place] [address] Aug, Exercise counseling Z71.82 [place] [id number] [place] [address] Aug, Bipolar 1 disorder, mixed F3 1.60 [place] [address] [address] Aug, Gastritis without bleeding, unspecified chronicity, unspecified gastritis type K29.70 ; Tobacco abuse Z72.0 ; Generalized anxiety disorder F41.1 and Weight gain R63.5 [place] [address] [address] Aug, Bipolar 1 disorder, mixed F3 1.60 ; Generalized anxiety disorder F41.1 and Tobacco use disorder F17.200 [place] [address] [place] [address] Jul, Bipolar 1 disorder, mixed F3 1.60 [place] [address] [place] [id number] [place] [address] Jul, [place] [address] [address] Jul, Bipolar 1 disorder, mixed F3 1.60 [facility] [address] [facility] [id number] [address] [place] [address] Jul, Allergic rhinitis J30.9 ; Ma darion depressive disorder, recurrent episode, moderate F33.1 and Tobacco 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 [facility] [address] [facility] [id number] [address] [place] [address] Jun, [facility] [address] [id number] [address] [place] [address] Jun, [facility] [address] [facility] [id number] [address] [place] [address] Jun, Bipolar 1 disorder, mixed F3 1.60 [facility] [address] [facility] [id number] [address] [place] [address] Jun, Bipolar 1 disorder, mixed F3 1.60 [facility] [address] [facility] [id number] [address] [place] [address] Jun, Bipolar 1 disorder, mixed F3 1.60 [facility] [address] [facility] [id number] [address] [place] [address] Jun, Generalized anxiety disorder F41.1 ; Tobacco abuse Z72.0 and Major depressive disorder, recurrent episode, moderate F33.1 [facility] [address] [facility] [id number] [address] [place] [address] May, Bipolar 1 disorder, mixed F3 1.60 [facility] [address] [facility] [id number] [address] [place] [address] May, Bipolar 1 disorder, mixed F3 1.60 and Generalized anxiety disorder F41.1 [facility] [address] [facility] [id number] [address] [place] [address] May, Bipolar 1 disorder, mixed F3 1.60 [facility] [address] [facility] [id number] [address] [place] [address] May, Allergic rhinitis J30.9 [facility] [id number] [place] [address] May, Bipolar 1 disorder, mixed F3 1.60 [facility] [id number] [place] [address] May, [facility] [id number] [place] [address] Apr, Allergic rhinitis J30.9 ; Dy sfunction of both eustachian tubes H69.83 ; History of bladder surgery Z98.8[address]2 [facility] [id number] [place] [address] Mar, Bipolar 1 disorder, mixed F3 1.60 [facility] [address] [address] Mar, [place] [address] [address] Mar, Slow transit constipation K5 9.01 ; Encounter for immunization Z23 and Generalized anxiety disorder F41.1 [facility] [address] [address] 27 Feb, 2018 Bipolar 1 disorder, mixed F3 1.60 [facility] [id number] [place] [address] 26 Feb, [address] [facility] [id number] [place] [address] 24 Feb, 2018 Bipolar 1 disorder, mixed F3 1.60 [facility] [id number] [place] [address] 20 Feb, 2018 Bipolar 1 disorder, mixed F3 1.60 and Generalized anxiety disorder F41.1 [facility] [id number] [place] [address] 13 Feb, 2018 Bipolar 1 disorder, mixed F3 1.60 [facility] [id number] [place] [address] 11 Feb, [address] [facility] [address] [facility] [id number] [address] [place] [address] Feb, [facility] [address] [facility] [id number] [address] [place], [place] [address] Jan, Bipolar 1 disorder, mixed F3 1.60 [facility] [address] [facility] [id number] [address] [place] [address] Jan, Low back pain M54.5 ; Hyperl ipidemia, unspecified hyperlipidemia type E78.5 and Bipolar 1 disorder, mixed F31.60 [facility] [address] [facility] [id number] [address] [place] [address] Jan, Bipolar 1 disorder, mixed F3 1.60 [place] [address] [facility] [id number] [address] [place] [address] Jan, Bipolar 1 disorder, mixed F3 1.60 [place] [address] [facility] [id number] [address] [place] [address] Jan, Bipolar 1 disorder, mixed F3 1.60 [place] [address] [facility] [id number] [address] [place] [address] Jan, Bipolar 1 disorder, mixed F3 1.60 [place] [address] [facility] [id number] [address] [place] [address] Dec, Bipolar 1 disorder, mixed F3 1.60 ; Generalized anxiety disorder F41.1 and 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 (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 Z79.899 [place] [id number] [facility] [id number] [address] [place] [address] Dec, 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 (current) dr ug therapy Z79.899 [place] [id number] [facility] [id number] [address] [place] [address] Dec, Bipolar 1 disorder, mixed F3 1.60 [place] [address] [facility] [id number] [address] [place] [address] Dec, Bipolar 1 disorder, mixed F3 1.60 [place] [address] [address] Nov, Bipolar 1 disorder, mixed F3 1.60 [facility] [address] [address] Nov, Bipolar 1 disorder, mixed F3 1.60 [facility] [address] [address] Nov, Bipolar 1 disorder, mixed F3 1.60 [facility] [address] [address] Nov, Allergic rhinitis J30.9 [place] [address] [address] Nov, Allergic rhinitis J30.9 [place] [address] [address] Nov, [place] [address] [address] Nov, Bipolar 1 disorder, mixed F3 1.60 [place] [address] [address] Nov, Fibromyalgia M79.7 and Aller gic rhinitis J30.9 [place] [address] [address] October, Bipolar 1 disorder, mixed F3 1.60 [facility] [address] [address] October, Acute nasopharyngitis J00 [facility] [address] [address] October, Bitten or stung by nonvenomo us insect and other nonvenomous arthropods, initial encounter W57.XXXA and Insect bite (nonvenomous) of abdominal wall, initial encounter S30.861A [facility] [id number] [place] [address] October, Insect bite (nonvenomous) of abdominal wall, initial encounter S30.861A ; Bitten or stung by nonvenomous insect and other nonvenomous arthropods, initial encounter W57.XXXA ; Allergic rhinitis J30.9 and Low back pain M54.5 [facility] [address] [facility] [id number] [address] [place] [address] October, Bipolar 1 disorder, mixed F3 1.60 [facility] [address] [facility] [id number] [address] [place] [address] October, [facility] [address] [facility] [id number] [address] [place] [address] October, [facility] [id number] [place] [address] October, Bipolar 1 disorder, mixed F3 1.60 [facility] [id number] [place] [address] Sep, Bipolar 1 disorder, mixed F3 1.60 [facility] [id number] [place] [address] Sep, Other chronic pain G89.29 [facility] [id number] [place] [address] Sep, [facility] [address] [facility] [id number] [address] [place] [address] Sep, Bipolar 1 disorder, mixed F3 1.60 [facility] [id number] [place] [address] Sep, Allergic rhinitis J30.9 and Sciatica of left side M54.32 [facility] [id number] [place] [address] Sep, Bipolar 1 disorder, mixed F3 1.60 [facility] [id number] [place] [address] Sep, Bipolar 1 disorder, mixed F3 1.60 and Generalized anxiety disorder F41.1 [facility] [address] [id number] [address] [place] [address] Aug, [facility] [address] [id number] [address] [place] [address] Aug, Bipolar 1 disorder, mixed F3 1.60 [facility] [address] [facility] [id number] [address] [place] [address] Aug, Bipolar 1 disorder, mixed F3 1.60 [facility] [address] [facility] [id number] [address] [place] [address] Aug, [facility] [address] [facility] [id number] [address] [place] [address] Aug, Generalized anxiety disorder F41.1 [facility] [address] [facility] [id number] [address] [place] [address] Aug, Bipolar 1 disorder, mixed F3 1.60 [facility] [address] [facility] [id number] [address] [place] [address] Aug, Plantar wart of right foot B 07.0 [facility] [address] [facility] [id number] [address] [place] [address] Aug, Bipolar 1 disorder, mixed F3 1.60 [facility] [address] [facility] [id number] [address] [place] [address] Jul, Bipolar 1 disorder, mixed F3 1.60 [facility] [address] [facility] [id number] [address] [place] [address] Jul, [facility] [address] [facility] [id number] [address] [place] [address] 14 Jul, 2017 Bipolar 1 disorder, mixed F3 1.60 [facility] [address] [facility] [id number] [address] [place] [address] 09 Jul, 2017 Generalized anxiety disorder F41.1 [facility] [address] [facility] [id number] [address] [place] [address] 07 Jul, 2017 Bipolar 1 disorder, mixed F3 1.60 [facility] [address] [facility] [id number] [address] [place] [address] 07 Jul, 2017 Acute left-sided low back pa in with left-sided sciatica M54.42 [facility] [address] [facility] [id number] [address] [place] [address] 05 Jul, [address] [facility] [address] [place] [id number] [place] [address] Jun, Bipolar 1 disorder, mixed F3 1.60 [facility] [address] [place] [id number] [place] [address] Jun, Acute nasopharyngitis J00 [place] [address] [place] [id number] [place] [address] Jun, Bipolar 1 disorder, mixed F3 1.60 [place] [address] [place] [id number] [place] [address] Jun, Fibromyalgia M79.7 [place] [address] [place] [id number] [place] [address] Jun, Bipolar 1 disorder, mixed F3 1.60 [place] [address] [place] [id number] [place] [address] Jun, Fibromyalgia M79.7 and Bipol ar 1 disorder, mixed F31.60 [place] [address] [place] [id number] [place] [address] May, Bipolar 1 disorder, mixed F3 1.60 ; Generalized anxiety disorder F41.1 and 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 (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 Z79.899 [place] [address] [place] [id number] [place] [address] May, Bipolar 1 disorder, mixed F3 1.60 [facility] [address] [place] [id number] [place] [address] May, Cough R05 and Body aches R52 [facility] [address] [address] 10 May, 2017 Bladder spasm N32.89 and Acu te cystitis without hematuria N30.00 [facility] [address] [address] 07 May, 2017 Bipolar 1 disorder, mixed F3 1.60 [place] [address] [place] [address] 30 Apr, 2017 [place] [address] [address] Apr, Major depressive disorder, r ecurrent episode, moderate F33.1 and Encounter for immunization Z23 [place] [address] [address] Apr, Bipolar 1 disorder, mixed F3 1.60 [place] [address] [address] 22 Apr, 2017 Bipolar 1 disorder, mixed F3 1.60 [place] [address] [address] 16 Apr, 2017 Bipolar 1 disorder, mixed F3 1.60 [place] [address] [address] 13 Apr, 2017 Yeast vaginitis B37.3 [place] [address] [address] 09 Apr, 2017 Bipolar 1 disorder, mixed F3 1.60 [facility] [address] [address] 07 Apr, [address] for immunization Z23 [place] [address] [address] 02 Apr, 2017 Bipolar 1 disorder, mixed F3 1.60 [place] [address] [address] Mar, Bipolar 1 disorder, mixed F3 1.60 [place] [address] [address] Mar, Bipolar 1 disorder, mixed F3 1.60 [place] [address] [place] [address] Mar, Imbalance R26.89 [address] for immunization Z23 [place] [address] [place] [address] Mar, Generalized anxiety disorder F41.1 [place] [address] [place] [address] Mar, Bipolar 1 disorder, mixed F3 1.60 [place] [address] [address] Mar, Generalized anxiety disorder F41.1 [place] [address] [address] Mar, Bipolar 1 disorder, mixed F3 1.60 [place] [address] [address] Mar, Bipolar 1 disorder, mixed F3 1.60 [place] [address] [place] [id number] Feb, Bipolar 1 disorder, mixed F3 1.60 [place] [address] [address] Feb, Bipolar 1 disorder, mixed F3 1.60 and Generalized anxiety disorder F41.1 [place] [address] [address] Feb, Gastritis without bleeding, unspecified chronicity, unspecified gastritis type K29.70 ; Hammer toe of right foot M20.41 and Other viral warts B07.8 [place] [address] [place] [id number] [place] [address] Feb, Bipolar 1 disorder, mixed F3 1.60 [place] [address] [facility] [facility] [id number] [address] [place] [phone] 13 Feb, 2017 Bipolar [address] disorder, [address]60 [facility] [address] [facility] [id number] [address] [place] [address] 05 Feb, 2017 Bipolar 1 disorder, mixed F3 1.60 [facility] [address] [place] [id number] [address] [place] [address] 31 Jan, 2017 Encounter for screening mamm ogram for breast cancer Z12.31 ; Other viral warts B07.[address] All[address]9 [facility] [address] [facility] [id number] [address] [place] [address] Jan, Bipolar 1 disorder, mixed F3 1.60 [place] [address] [facility] [id number] [address] [place] [address] Jan, Bipolar 1 disorder, mixed F3 1.60 [place] [address] [place] [id number] [address] [place] [address] 14 Jan, 2017 [facility] [address] [facility] [id number] [address] [place] [address] Jan, Bipolar 1 disorder, mixed F3 1.60 [place] [address] [facility] [id number] [address] [place] [address] 04 Jan, 2017 Bipolar 1 disorder, mixed F3 1.60 [place] [address] [place] [id number] [address] [place] [address] Jan, Allergic rhinitis J30.9 ; He maturia R31.9 and Colon cancer screening Z12.11 [facility] [address] [facility] [id number] [address] [place] [phone] Dec, Bipolar 1 disorder, mixed F3 1.60 [place] [address] [facility] [id number] [address] [place] [address] 18 Dec, 2016 Bipolar 1 disorder, mixed F3 1.60 ; Generalized anxiety disorder F41.1 and 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 (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 Z79.899 [place] [id number] [place] [id number] [address] [place] [address] Dec, Bipolar 1 disorder, mixed F3 1.60 [facility] [address] [place] [id number] [address] [place] [address] Dec, Bipolar 1 disorder, mixed F3 1.60 [facility] [address] [place] [id number] [address] [place] [address] Dec, Bipolar 1 disorder, mixed F3 1.60 [place] [address] [place] [id number] [address] [place] [address] Dec, Low back pain M54.5 and Recu rrent urinary tract infection N39.0 [place] [address] [place] [id number] [address] [place] [address] Nov, Bipolar 1 disorder, mixed F3 1.60 [place] [address] [address] Nov, Bipolar 1 disorder, mixed F3 1.60 [place] [address] [place] [id number] [address] [place] [address] Nov, Bipolar 1 disorder, mixed F3 1.60 [place] [address] [place] [id number] [place] [address] Nov, Bipolar 1 disorder, mixed F3 1.60 [place] [address] [address] Nov, [place] [address] [place] [id number] [place] [address] Nov, Anesthesia of skin R20.0 ; F requent UTI N39.0 ; Tobacco abuse Z72.0 and Colon cancer screening Z12.11 [place] [address] [place] [id number] [address] [place] [address] Nov, Bipolar 1 disorder, mixed F3 1.60 [place] [address] [place] [id number] [address] [place] [address] October, Bipolar 1 disorder, mixed F3 1.60 [facility] [address] [place] [address] October, Bipolar 1 disorder, mixed F3 1.60 [facility] [address] [place] [id number] October, Bipolar 1 disorder, mixed F3 1.60 [facility] [address] [address] October, Bipolar 1 disorder, mixed F3 1.60 [facility] [address] [place] [id number] [place] [address] October, Bipolar 1 disorder, mixed F3 1.60 [place] [address] [address] October, Cervicalgia M54.2 and Bipola r 1 disorder, mixed F31.60 [place] [address] [address] October, Hypertension I10 ; Hyperlipi demia, unspecified hyperlipidemia type E78.5 and Family history of thyroid disease Z83.49 [place] [address] [address] October, [place] [address] [address] October, Hypertension I10 ; Hyperlipi demia, unspecified hyperlipidemia type E78.5 and Family history of thyroid problem Z83.49 [facility] [address] [place] [id number] [address] [place] [address] October, Bipolar 1 disorder, mixed F3 1.60 [facility] [address] [place] [id number] Sep, Bipolar 1 disorder, mixed F3 1.60 [facility] [address] [address] Sep, Bipolar 1 disorder, mixed F3 1.60 [facility] [address] [place] [address] Sep, Bipolar 1 disorder, mixed F3 1.60 [facility] [address] [address] Sep, History of colon polyps Z86. 010 and Hematochezia K92.1 [place] [address] [address] Sep, Major depressive disorder, r ecurrent episode, moderate F33.1 [facility] [address] [place] [id number] [place] [address] Sep, Bipolar 1 disorder, mixed F3 1.60 [place] [address] [place] [id number] [place] [address] Aug, Hot flashes due to menopause N95.1 [place] [address] [address] Aug, Bipolar 1 disorder, mixed F3 1.60 [place] [address] [address] Aug, [facility] [address] [address] Aug, Bipolar 1 disorder, mixed F3 1.60 [place] [address] [address] Aug, Bipolar 1 disorder, mixed F3 1.60 [facility] [address] [place] [id number] [place] [address] Aug, Hot flashes due to menopause N95.1 ; Cervicalgia M54.[address] [facility] [address] [place] [id number] [address] [place] [address] Jul, Bipolar 1 disorder, mixed F3 1.60 [place] [address] [place] [id number] [address] [place] [address] Jul, Bipolar 1 disorder, mixed F3 1.60 [place] [address] [place] 29[address]62[address] Jul, Bipolar 1 disorder, mixed F3 1.60 [place] [address] [place] [id number] 13 Jul, 2016 Bipolar 1 disorder, mixed F3 1.60 [place] [address] [place] [address] Jul, Bipolar 1 disorder, mixed F3 1.60 [place] [address] 08 Jul, 2016 Cervicalgia M54.2 ; Tremor R 25.1 ; Hearing abnormally acute, unspecified laterality H93.239 ; Alopecia L65.9 ; Encounter for immunization Z23 and Family history of thyroid disease Z83.49 [place] [address] [place] 29[address]62[address] Jul, Bipolar 1 disorder, mixed F3 1.60 [place] [address] [address] Jun, [place] [address] Jun, Hearing disorder, unspecifie d laterality H93.299 [place] [address] [address] Jun, Bipolar 1 disorder, mixed F3 1.60 [place] [address] [address] Jun, Bipolar 1 disorder, mixed F3 1.60 [place] [address] [place] 29[address]62[address] Jun, Allergic rhinitis J30.9 [place] [address] [address] Jun, Bipolar 1 disorder, mixed F3 1.60 [place] [address] [place] [address] Jun, Bipolar 1 disorder, mixed F3 1.60 [facility] [address] [id number] [address] [place] [address] Jun, Allergic rhinitis J30.9 [facility] [address] [id number] [address] [place] [address] Jun, Allergic rhinitis J30.9 [facility] [address] [id number] [address] [place] [address] Jun, Bipolar 1 disorder, mixed F3 1.60 [facility] [address] [id number] [address] [place] [address] May, Bipolar 1 disorder, mixed F3 1.60 [facility] [address] [facility] [id number] [address] [place] [address] May, Bipolar 1 disorder, mixed F3 1.60 [facility] [address] [facility] [id number] [address] [place] [address] May, [facility] [address] [id number] [address] [place] [address] May, Bipolar 1 disorder, mixed F3 1.60 [facility] [address] [facility] [id number] [address] [place] [address] May, Bipolar 1 disorder, mixed F3 1.60 [facility] [address] [id number] [address] [place] [address] May, [facility] [address] [id number] [place] [address] May, [facility] [address] [facility] [id number] [address] [place] [address] May, [facility] [address] [facility] [id number] [address] [place] [address] May, Abdominal pain, unspecified location R10.9 [facility] [address] [id number] [address] [place] [address] May, [facility] [address] [address] Apr, Hematuria R31.9 ; Ataxia R27 .0 and Hearing loss, unspecified laterality H91.90 [facility] [address] [place] [id number] [address] [place] [address] Apr, Bipolar 1 disorder, mixed F3 1.60 [facility] [address] [address] Apr, Acute effusion of both middl e ears H65.193 [place] [address] [address] Apr, Hematuria R31.9 [address] hritis N12 [facility] [address] [address] Apr, [facility] [address] [address] Mar, Bipolar 1 disorder, mixed F3 1.60 [facility] [address] [address] Mar, [facility] [address] [address] Mar, Bipolar 1 disorder, mixed F3 1.60 [place] [address] [address] Mar, Bipolar 1 disorder, mixed F3 1.60 [facility] [address] [address] Mar, Encounter for immunization Z 23 and Gastritis without bleeding, unspecified chronicity, unspecified gastritis type K29.70 [facility] [address] [place] [id number] [address] [place] [address] 05 Mar, 2016 Bipolar 1 disorder, mixed F3 1.60 and Grief F43.20 [place] [address] [place] [id number] [address] [place] [address] Mar, Gastritis without bleeding, unspecified chronicity, unspecified gastritis type K29.70 [facility] [address] [place] [id number] [address] [place], [place] [address] Mar, Bipolar 1 disorder, mixed F3 1.60 [place] [address] [place] [id number] [address] [place] [address] Mar, Gastritis without bleeding, unspecified chronicity, unspecified gastritis type K29.70 [place] [address] [place] [address] Mar, [place] [address] [place] [id number] Feb, Bipolar 1 disorder, mixed F3 1.60 [place] [address] [place] [id number] [address] [place] [address] Feb, Bipolar 1 disorder, mixed F3 1.60 and Grief F43.20 [place] [address] [place] [id number] [address] [place] [address] Feb, Gastritis without bleeding, unspecified chronicity, unspecified gastritis type K29.70 [place] [address] [place] [id number] [address] [place] [address] 14 Feb, 2016 Bipolar 1 disorder, mixed F3 1.60 [facility] [address] [place] [id number] [address] [place] [address] Feb, Gastroesophageal reflux dise ase, esophagitis presence not specified K21.9 [place] [address] [place] [id number] [address] [place] [address] Jan, Bipolar 1 disorder, mixed F3 1.60 [place] [address] [place] [id number] [address] [place], [place] [id number] Jan, Bipolar 1 disorder, mixed F3 1.60 and Unsteady gait R26.81 [place] [address] [place] [id number] [address] [place] [address] Jan, Bipolar 1 disorder, mixed F3 1.60 [place] [id number] [address] [facility] [id number] [address] [place] [address] Jan, Bipolar 1 disorder, mixed F3 1.60 and 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 (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 Z79.899 [facility] [address] [place] [id number] [address] [place] [address] Jan, Bipolar 1 disorder, mixed F3 1.60 [place] [address] 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 [id number] [address] [place] [address] Dec, [place] [address] [place] [id number] [address] [place] [address] Dec, Bipolar 1 disorder, mixed F3 1.60 ; Vitamin D deficiency, unspecified E55.9 ; H/O allergic rhinitis Z87.09 ; Other chronic pain G89.29 and Dorsalgia, unspecified M54.9 [place] [address] [facility] [id number] [address] [place] [address] Dec, [place] [address] [place] [id number] [address] [place] [address] Dec, Bipolar 1 disorder, mixed F3 1.60 [place] [address] [place] [id number] [address] [place] [address] Dec, Major depressive disorder, r ecurrent episode, moderate F33.1 [place] [address] [address] Dec, Major depressive disorder, r ecurrent episode, moderate F33.1 [place] [address] [address] Nov, [place] [address] [address] Nov, Bipolar 1 disorder, mixed F3 1.60 [place] [address] [address] Nov, Major depressive disorder, r ecurrent episode, moderate F33.1 [place] [address] [address] Nov, Cervicalgia M54.2 ; Arthralg ia of hip, unspecified laterality M25.559 ; Allergic rhinitis J30.9 and Hormone replacement therapy Z79.[address] [facility] [address] [address] Nov, Other seasonal allergic rhin itis J30.2 [place] [address] [address] October, Major depressive disorder, r ecurrent episode, moderate F33.1 [place] [address] [address] October, Major depressive disorder, r ecurrent episode, moderate F33.1 and Arthralgia of hip, unspecified laterality M25.559 [place] [address] [place] [id number] [address] [place] [address] October, Grief F43.20 ; Hypertension I10 ; Hyperlipidemia, unspecified hyperlipidemia type E78.5 ; Other chronic pain G89.29 and Allergic rhinitis, unspecified allergic rhinitis type J30.9 [facility] [address] [place] [id number] [address] [place] [address] October, Major depressive disorder, r ecurrent episode, moderate F33.1 [place] [address] [id number] [address] [place] [address] Sep, Major depressive disorder, r ecurrent episode, moderate F33.1 [facility] [address] [id number] [address] [place] [address] Sep, [facility] [address] [facility] [id number] [address] [place] [address] Sep, Major depressive disorder, r ecurrent episode, moderate F33.1 [place] [address] [facility] [id number] [address] [place] [address] Sep, Grief F43.20 [place] [address] [facility] [id number] [address] [place] [address] Aug, Major depressive disorder, r ecurrent episode, moderate F33.1 [place] [address] [facility] [id number] [address] [place] [address] Aug, Bipolar 1 disorder, mixed F3 1.60 [place] [address] [facility] [id number] [address] [place] [address] Aug, Allergic rhinitis J30.9 ; Ce rvicalgia M54.2 and Low back pain M54.5 [place] [address] [facility] [id number] [address] [place] [address] Aug, Major depressive disorder, r ecurrent episode, moderate F33.1 [facility] [address] [facility] [id number] [address] [place] [address] Aug, Sinusitis J32.9 and Tobacco 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 [facility] [address] [facility] [id number] [address] [place] [address] Aug, [facility] [address] [facility] [id number] [address] [place] [address] Aug, Depressive disorder, not els ewhere classified F32.9 ; Hormone replacement therapy Z79.[address] scan, head R93.0 [place] [address] [place] [id number] [address] [place] [address] Aug, Major depressive disorder, r ecurrent episode, moderate F33.1 [facility] [address] [place] [id number] [place] [address] Jul, Major depressive disorder, r ecurrent episode, moderate F33.1 [facility] [address] [place] [id number] [address] [place] [address] Jul, Abdominal pain R10.9 and Hyp ertension I10 [facility] [address] [facility] [id number] [address] [place] [address] Jul, [facility] [address] [place] [id number] [place] [address] Jul, Major depressive disorder, r ecurrent episode, moderate F33.1 [facility] [address] [address] Jul, [facility] [address] [address] Jul, [facility] [address] [address] Jun, [facility] [address] [place] [id number] [place] [address] Jun, Depressive disorder, not els ewhere classified F32.9 [facility] [address] [place] [id number] [address] [place] [address] Jun, [facility] [address] [place] [id number] [address] [place] [address] Jun, [facility] [address] [address] Jun, Arthralgia of hip, unspecifi ed laterality M25.559 ; Bruising, spontaneous R23.[address] [facility] [address] [place] [id number] [address] [place] [address] Jun, [facility] [address] [facility] [id number] [address] [place] [address] Jun, [facility] [address] [facility] [id number] [address] [place] [address] May, [facility] [address] [facility] [id number] [address] [place] [address] May, Myalgia M79.1 and Screening, lipid Z13.220 [facility] [address] [facility] [id number] [address] [place] [phone] Apr, Status post cervical spinal fusion Z98.1 ; Fibromyalgia M79.7 and Unsteady [address] R26.81 [facility] [address] [facility] [id number] [address] [place] [phone] Nov, [facility] [address] [facility] [id number] [address] [place] [phone] Nov, [facility] [address] [facility] [id number] [address] [place] [phone] October, [facility] [address] [facility] [id number] [address] [place] [phone] October, [facility] [address] [facility] [id number] [address] [place] [phone] October, [facility] [address] [facility] [id number] [address] [place] [phone] October, [facility] [address] [facility] [id number] [address] [place] [phone] October, [facility] [address] [facility] [id number] [address] [place] [phone] October, Dysuria 788.1 ; Nausea 787.0 2 and Urinary tract infection 599.0 [facility] [address] [facility] [id number] [address] [place] [phone] Sep, [facility] [address] [facility] [id number] [address] [place] [phone] 13 Sep, 2014 [facility] [address] [id number] [address] [place] [address], [place] [phone] 25 Aug, 2014 [facility] [address] [id number] [address] [place] [address], [place] [phone] 25 Aug, 2014 [facility] [address] [id number] [address] [place] [address], [place] [id number] 24 Aug, 2014 [facility] [address] [id number] [address] [place] [address], [place] [phone] 24 Aug, 2014 [facility] [address] [address] [id number] [address] [place] [address], [place] [address] 23 Aug, 2014 [facility] [address] [id number] [address] [place] [address], [place] [address] 19 Aug, 2014 [facility] [address] [id number] [address] [place] [address], [place] [address] 19 Aug, 2014 [facility] [address] [id number] [address] [place] [address], [place] [address] 19 Aug, 2014 [facility] [address] [id number] [address] [place] [address], [place] [address] 19 Aug, 2014 [facility] [address] [id number] [address] [place] [address], [place] [address] 18 Aug, 2014 [facility] [address] [id number] [address] [place] [address], [place] [address] 18 Aug, 2014 [facility] [address] [id number] [address] [place] [address], [place] [address] 13 Aug, 2014 [facility] [address] [id number] [address] [place] [address], [place] [address] 13 Aug, 2014 [facility] [address] [id number] [address] [place] [address], [place] [address] 11 Aug, 2014 [facility] [address] [id number] [address] [place] [address], [place] [address] 11 Aug, 2014 [facility] [address] [id number] [address] [place] [address], [place] [address] 06 Aug, 2014 [facility] [address] [id number] [address] [place] [address], [place] [address] Aug, 2014 [facility] [address] [id number] [address] [place] [address], [place] [address] Aug, 2014 [facility] [address] [id number] [address] [place] [address], [place] [address] Aug, 2014 [facility] [address] [id number] [address] [place] [address], [place] [address] Aug, 2014 [facility] [address] [id number] [address] [place] [address], [place] [address] Aug, [facility] [address] [id number] [address] [place] [address], [place] [address] Aug, [facility] [address] [id number] [address] [place] [address], [place] [address] Jul, 2014 [facility] [address] [id number] [address] [place] [address], [place] [address] Jul, [facility] [address] [id number] [address] [place] [address], [place] [address] Jul, [facility] [address] [id number] [address] [place] [address] Jul, [facility] [address] [id number] [address] [place] [address] Jul, 2014 [facility] [address] [id number] [address] [place] [address], [place] [address] Jul, [facility] [address] [id number] [address] [place] [address], [place] [address] Jul, 2014 [facility] [address] [id number] [address] [place] [address] Jul, 2014 [facility] [address] [id number] [address] [place] [address] Jul, 2014 [facility] [address] [id number] [address] [place] [address], [place] [address] Jul, 2014 [facility] [address] [id number] [address] [place] [address], [place] [address] Jul, 2014 [facility] [address] [id number] [address] [place] [address], [place] [address] Jul, 2014 [facility] [address] [id number] [address] [place] [address], [place] [address] Jul, [facility] [address] [id number] [address] [place] [address], [place] [address] Jul, [facility] [address] [id number] [address] [place] [address], [place] [address] Jun, [facility] [address] [id number] [address] [place] [address], [place] [address] Jun, [facility] [address] [id number] [address] [place] [address], [place] [address] Jun, [facility] [address] [id number] [address] [place] [address], [place] [address] Jun, [facility] [address] [id number] [address] [place] [address], [place] [address] Jun, [facility] [address] [id number] [address] [place] [address], [place] [address] Jun, [facility] [address] [id number] [address] [place] [address], [place] [address] May, [facility] [address] [id number] [address] [place] [address], [place] [address] May, [facility] [address] [id number] [address] [place] [address], [place] [address] May, [facility] [address] [id number] [address] [place] [address], [place] [address] May, [facility] [address] [id number] [address] [place] [address], [place] [address] May, [facility] [address] [id number] [address] [place] [address], [place] [address] May, [facility] [address] [id number] [address] [place] [address], [place] [address] Apr, [facility] [address] [id number] [address] [place] [address], [place] [address] Apr, [facility] [address] [id number] [address] [place] [address], [place] [address] Apr, [facility] [address] [id number] [address] [place] [address], [place] [address] Apr, [facility] [address] [id number] [address] [place] [address], [place] [address] Apr, [facility] [address] [id number] [address] [place] [address], [place] [address] Apr, [facility] [address] [id number] [address] [place] [address], [place] [address] Mar, [facility] [address] [id number] [address] [place] [address], [place] [address] Mar, [facility] [address] [id number] [address] [place] [address], [place] [address] Mar, [facility] [address] [id number] [address] [place] [address] Mar, [facility] [address] [id number] [address] [place] [address], [place] [address] Mar, [facility] [address] [id number] [address] [place] [address], [place] [address] Mar, [facility] [address] [id number] [address] [place] [address] Mar, [facility] [address] [id number] [address] [place] [address] Mar, [facility] [address] [id number] [address] [place] [address], [place] [address] Mar, [facility] [address] [id number] [address] [place] [address], [place] [address] Mar, [facility] [address] [id number] [address] [place] [address], [place] [address] Mar, [facility] [address] [id number] [address] [place] [address], [place] [address] Mar, [facility] [address] [id number] [address] [place] [address], [place] [address] 30 Feb, 2014 [facility] [address] [id number] [address] [place] [address], [place] [address] 29 Feb, 2014 [facility] [address] [id number] [address] [place] [address], [place] [address] 29 Feb, 2014 [facility] [address] [id number] [address] [place] [address], [place] [address] Feb, [facility] [address] [id number] [address] [place] [address], [place] [address] Feb, [facility] [address] [id number] [address] [place] [address], [place] [address] Feb, [facility] [address] [id number] [address] [place] [address], [place] [address] Feb, [facility] [address] [id number] [address] [place] [address], [place] [address] Jan, [facility] [address] [id number] [address] [place] [address], [place] [address] Jan, [facility] [address] [id number] [address] [place] [address], [place] [address] Jan, [facility] [address] [id number] [address] [place] [address], [place] [address] Dec, [facility] [address] [id number] [facility] [place] [address] Dec, [facility] [address] [id number] [address] [place] [address], [place] [address] Dec, [facility] [address] [id number] [address] [place] [address], [place] [address] Dec, [facility] [address] [id number] [address] [place] [address], [place] [address] Sep, [facility] [address] [id number] [address] [place] [address], [place] [address] Sep, [facility] [address] [id number] [address] [place] [address], [place] [address] Sep, [facility] [address] [id number] [address] [place] [address], [place] [address] Sep, [facility] [address] [id number] [address] [place] [address], [place] [address] Sep, [facility] [address] [id number] [address] [place] [address], [place] [address] Sep, [facility] [address] [id number] [address] [place] [address], [place] [address] Sep, [facility] [address] [id number] [address] [place] [address], [place] [address] Sep, [facility] [address] [id number] [address] [place] [address], [place] [address] Aug, [facility] [address] [id number] [address] [place] [address], [place] [address] Aug, [facility] [address] [id number] [address] [place] [address], [place] [address] May, [facility] [address] [id number] [address] [place] [address], [place] [address] May, [facility] [address] [id number] [address] [place] [address], [place] [address] Apr, [facility] [address] [id number] [address] [place] [address], [place] [address] Apr, [facility] [address] [id number] [address] [place] [address], [place] [address] Apr, [facility] [address] [id number] [address] [place] [address], [place] [address] Apr, [facility] [address] [id number] [address] [place] [address], [place] [address] Apr, [facility] [address] [id number] [address] [place] [address], [place] [address] Apr, [facility] [address] [id number] [address] [place] [address], [place] [address] May, [facility] [address] [id number] [address] [place] [address], [place] [address] May, [facility] [address] [id number] [address] [place] [address], [place] [address] 15 May, 2012 [facility] [address] [id number] [address] [place] [address], [place] [address] May, [facility] [address] [id number] [address] [place] [address], [place] [address] May, [facility] [address] [id number] [address] [place] [address], [place] [address] May, [facility] [address] [id number] [address] [place] [address], [place] [address] Apr, [facility] [address] [id number] [address] [place] [address], [place] [address] Apr, [facility] [address] [id number] [address] [place] [address], [place] [address] Apr, [facility] [address] [id number] [address] [place] [address], [place] [address] Apr, [facility] [address] [id number] [address] [place] [address] [place] [address] 08 Apr, 2012 [facility] [address] [id number] [address] [place] [address], [place] [address] 08 Apr, 2012 [facility] [address] [id number] [address] [place] [address] Apr, [facility] [address] [id number] [address] [place] [address], [place] [address] Apr, [facility] [address] [id number] [address] [place] [address], [place] [address] Apr, [facility] [address] [id number] [address] [place] [address], [place] [address] Apr, [facility] [address] [id number] [address] [place] [address], [place] [address] Mar, [facility] [address] [id number] [address] [place] [address] Mar, [facility] [address] [id number] [address] [place] [address] Mar, [facility] [address] [id number] [address] [place] [address] Mar, [facility] [address] [id number] [address] [place] [address] Mar, [facility] [address] [id number] [address] [place] [address], [place] [address] Mar, [facility] [address] [id number] [address] [place] [address] Mar, [facility] [address] [id number] [address] [place] [address] Mar, [facility] [address] [id number] [address] [place] [address] Mar, [facility] [address] [id number] [address] [place] [address] Feb, [facility] [address] [id number] [facility] [place] [address] 16 Feb, 2012 [facility] [address] [id number] [address] [place] [address], [place] [address] 11 Feb, 2012 [facility] [address] [id number] [address] [place] [address], [place] [address] 25 Jan, 2012 [facility] [address] [id number] [address] [place] [address], [place] [address] Jan, [facility] [address] [id number] [address] [place] [address], [place] [address] Jan, [facility] [address] [id number] [address] [place] [address], [place] [address] Jan, [facility] [address] [id number] [address] [place] [address], [place] [address] 17 Jan, 2012 [facility] [address] [id number] [address] [place] [address], [place] [address] Jan, [facility] [address] [id number] [address] [place] [address], [place] [address] 16 Jan, 2012 [facility] [address] [id number] [address] [place] [address], [place] [address] Jan, [facility] [address] [id number] [address] [place] [address], [place] [address] 15 Jan, 2012 [facility] [address] [id number] [address] [place] [address], [place] [address] Jan, [facility] [address] [id number] [address] [place] [address], [place] [address] Dec, [facility] [address] [id number] [address] [place] [address], [place] [address] Dec, [facility] [address] [id number] [address] [place] [address], [place] [address] Dec, [facility] [address] [id number] [address] [place] [address], [place] [address] Dec, [facility] [address] [id number] [address] [place] [address], [place] [address] Nov, [facility] [address] [id number] [address] [place] [address], [place] [address] Nov, [facility] [address] [id number] [address] [place] [address], [place] [address] Nov, [facility] [address] [id number] [address] [place] [address], [place] [address] October, [facility] [address] [id number] [address] [place] [address], [place] [address] October, [facility] [address] [id number] [address] [place] [address], [place] [address] October, [facility] [address] [id number] [address] [place] [address], [place] [address] October, [facility] [address] [id number] [address] [place] [address], [place] [address] October, [facility] [address] [id number] [address] [place] [address], [place] [address] October, [facility] [address] [id number] [address] [place] [address], [place] [address] Aug, [facility] [address] [id number] [address] [place] [address], [place] [address] Mar, [facility] [address] [id number] [address] [place] [address], [place] [address] Nov, [facility] [address] [id number] [address] [place] [address], [place] [address] May, [facility] [address] [id number] [address] [place] [address], [place] [address] May, [facility] [address] [id number] [address] [place] [address], [place] [address] Apr, [facility] [address] [id number] [address] [place] [address] 15 Mar, 2010 [facility] [address] [facility] [id number] [address] [place] [address] Mar, IMMUNIZATIONS No Known Immunizations SOCIAL HISTORY Never Assessed REASON FOR VISIT PLAN OF CARE VITAL SIGNS Height 64 in 2014-04-15 Weight 155 lbs 2014-04-15 Temperature 98 degrees Fahrenheit 2014-04-15 Heart Rate 80 bpm 2014-04-15 Respiratory Rate 18 2014-04-15 Blood pressure systolic 128 mmHg 2014-04-15 Blood pressure diastolic 70 mmHg 2014-04-15 MEDICATIONS Unknown Medications RESULTS No Results PROCEDURES [...]
--- OUTSIDE RECORDS SUMMARY | 2019-06-19 05:09 | XMS REPORT ---
Author Author Sydnie HANCOCK [facility] Address [address] [place] [address] Care Team Providers Care Data Systems Manager Name Role Phone NAHOMY HANCOCK Unavailable PROBLEMS Type Condition ICD9-CM Code ZGD27-WS Code Onset Dates Condition S tatus SNOMED Code Problem Age-related osteoporosis without current pathological fracture M81.0 Active 17635449 Problem Sensorineural hearing loss (SNHL) of both ears H90 .3 Active 642833427 Problem Abnormal CT scan, head R93.0 Active 419575575 Problem Arthralgia of hip, unspecified laterality M25.559 Active 08264612 Problem Bruising, spontaneous R23.3 Active 886240050 Problem Hypertension I10 Active 0856762 3 Problem Night sweats R61 Active 9702703 0 Problem Imbalance R26.89 Active 114681393 Problem Hammer toe of right foot M20.41 Activ e 469690358 Problem Hormone replacement therapy Z79.890 Ac tive 189399241 Problem Bipolar 1 disorder, mixed F31.60 Acti ve 11001884 Problem Gastritis without bleeding, unspecified chronicity, unspecified gastritis type K29.70 Active 091156540 Problem Ataxia R27.0 Active 12697945 Problem Hearing loss, unspecified laterality H91.90 Active 18530675 Problem History of colon polyps Z86.010 Active 718336758 Problem Allergic rhinitis J30.9 Active 61 901843 Problem Hematuria, unspecified type R31.9 Ac tive 28288160 Problem Generalized anxiety disorder F41.1 A ctive 05152097 Problem Major depressive disorder, recurrent episode, moderate F33.1 Active 559445589 Problem Fibromyalgia M79.7 Active 1837345 7 Problem Bladder spasm N32.89 Active 521807 006 Problem Tobacco use disorder F17.200 Active 273823790 Problem Other chronic pain G89.29 Active 8 8534457 Problem Post menopausal syndrome N95.1 Activ e 935519590 Problem Grief F43.20 Active 04249039 Problem Hyperlipidemia, unspecified hyperlipidemia type E7 8.5 Active 65461623 Problem Acute left-sided low back pain with left-sided sciatica M54.42 Active 674780732 Problem Sciatica of left side M54.32 Active 13367226 Problem Plantar wart of right foot B07.0 Act mitchell [id number] Problem Slow transit constipation K59.01 Acti ve 14449530 ALLERGIES No Information ENCOUNTERS Encounter Location Date Diagnosis [facility] [id number] [place] [address] Jan, [facility] [address] [place] [id number] [place] [address] Jan, [facility] [address] [address] Jan, [facility] [address] [address] Jan, [facility] [address] [address] Dec, Normal pelvic exam Z01.419 [place] [address] [address] Dec, Bipolar 1 disorder, mixed F3 1.60 [facility] [address] [place] [id number] [place] [address] Nov, Bipolar 1 disorder, mixed F3 1.60 [facility] [address] [place] [id number] [place] [address] Nov, Bipolar 1 disorder, mixed F3 1.60 ; Generalized anxiety disorder F41.1 ; Tobacco use disorder F17.200 and Other watermaster (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 Z79.899 [facility] [address] [place] [id number] [place] [address] Nov, [facility] [address] [place] [id number] [place] [address] Nov, Bipolar 1 disorder, mixed F3 1.60 [place] [address] [facility] [id number] [address] [place] [address] October, Bipolar 1 disorder, mixed F3 1.60 [place] [address] [facility] [id number] [address] [place] [address] October, Bipolar 1 disorder, mixed F3 1.60 [place] [address] [facility] [id number] [address] [place] [address] October, [place] [address] [facility] [id number] [address] [place] [address] October, Bipolar 1 disorder, mixed F3 1.60 ; Generalized anxiety disorder F41.1 and Tobacco use disorder F17.200 [place] [address] [facility] [id number] [address] [place] [address] Sep, [place] [address] [place] [id number] [place] [address] Sep, Encounter for Medicare annua wellness exam Z00.00 ; Major depressive disorder, recurrent episode, moderate F33.1 ; Allergic rhinitis J30.9 ; Bipolar 1 disorder, mixed F31.60 ; Fibromyalgia M79.7 ; Hyperlipidemia, unspecified hyperlipidemia type E78.5 ; Hormone replacement therapy Z79.890 ; Encounter for screening for lung cancer Z12.2 and Tobacco use disorder F17.200 [place] [address] [facility] [id number] [address] [place] [address] Sep, Bipolar 1 disorder, mixed F3 1.60 [place] [address] [facility] [id number] [address] [place] [address] Sep, Other chronic pain G89.29 ; Hyperlipidemia, unspecified hyperlipidemia type E78.5 ; Breast cancer screening Z12.31 and Post menopausal syndrome N95.1 [place] [address] [facility] [id number] [address] [place] [address] Sep, Bipolar 1 disorder, mixed F3 1.60 [place] [address] [place] [id number] [place] [address] Sep, Bipolar 1 disorder, mixed F3 1.60 ; Generalized anxiety disorder F41.1 and Tobacco use disorder F17.200 [place] [address] [place] [id number] Sep, Gastritis without bleeding, unspecified chronicity, unspecified gastritis type K29.70 [place] [address] [address] Sep, Exercise counseling Z71.82 [place] [address] [address] Aug, Exercise counseling Z71.82 [place] [address] [place] [address] Aug, Bipolar 1 disorder, mixed F3 1.60 [place] [address] [address] Aug, Exercise counseling Z71.82 [place] [address] [address] Aug, Bipolar 1 disorder, mixed F3 1.60 [place] [address] [address] Aug, Gastritis without bleeding, unspecified chronicity, unspecified gastritis type K29.70 ; Tobacco abuse Z72.0 ; Generalized anxiety disorder F41.1 and Weight gain R63.5 [place] [address] [address] Aug, Bipolar 1 disorder, mixed F3 1.60 ; Generalized anxiety disorder F41.1 and Tobacco use disorder F17.200 [place] [address] [address] Jul, Bipolar 1 disorder, mixed F3 1.60 [place] [address] [address] Jul, [place] [address] [address] Jul, Bipolar 1 disorder, mixed F3 1.60 [facility] [address] [facility] [id number] [address] [place] [address] Jul, Allergic rhinitis J30.9 ; Ma darion depressive disorder, recurrent episode, moderate F33.1 and Tobacco 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 [facility] [address] [facility] [id number] [address] [place] [address] Jun, [facility] [address] [facility] [id number] [address] [place] [address] Jun, [facility] [address] [facility] [id number] [address] [place] [address] Jun, Bipolar 1 disorder, mixed F3 1.60 [place] [address] [place] [id number] [place] [address] Jun, Bipolar 1 disorder, mixed F3 1.60 [place] [address] [place] [id number] [place] [address] Jun, Bipolar 1 disorder, mixed F3 1.60 [place] [address] [place] [id number] [place] [address] Jun, Generalized anxiety disorder F41.1 ; Tobacco abuse Z72.0 and Major depressive disorder, recurrent episode, moderate F33.1 [place] [address] [place] [id number] [place] [address] May, Bipolar 1 disorder, mixed F3 1.60 [facility] [address] [place] [id number] [place] [address] May, Bipolar 1 disorder, mixed F3 1.60 and Generalized anxiety disorder F41.1 [place] [address] [place] [id number] [place] [address] May, Bipolar 1 disorder, mixed F3 1.60 [place] [address] [place] [id number] [place] [address] May, Allergic rhinitis J30.9 [facility] [address] [facility] [id number] [address] [place] [address] May, Bipolar 1 disorder, mixed F3 1.60 [facility] [address] [place] [id number] [place] [address] May, [facility] [address] [facility] [id number] [address] [place] [address] Apr, Allergic rhinitis J30.9 ; Dy sfunction of both eustachian tubes H69.83 ; History of bladder surgery Z98.890 and Cervicalgia M54.2 [facility] [address] [place] [id number] [place] [address] Mar, Bipolar 1 disorder, mixed F3 1.60 [place] [address] [place] [id number] [place] [address] Mar, [place] [address] [place] [id number] [place] [address] Mar, Slow transit constipation K5 9.01 ; Encounter for immunization Z23 and Generalized anxiety disorder F41.1 [place] [address] [facility] [id number] [address] [place] [address] 27 Feb, 2018 Bipolar 1 disorder, mixed F3 1.60 [place] [address] [place] [id number] [place] [address] 26 Feb, 2018 Allergic rhinitis J30.9 [facility] [address] [place] [id number] [address] [place] [address] 24 Feb, 2018 Bipolar 1 disorder, mixed F3 1.60 [place] [address] [place] [id number] [place] [address] 20 Feb, 2018 Bipolar 1 disorder, mixed F3 1.60 and Generalized anxiety disorder F41.1 [facility] [address] [facility] [id number] [address] [place] [address] 13 Feb, 2018 Bipolar 1 disorder, mixed F3 1.60 [place] [address] [place] [id number] [place] [address] Feb, Allergic rhinitis J30.9 [facility] [address] [place] [id number] [address] [place] [address] Feb, [facility] [address] [facility] [id number] [address] [place], [place] [address] Jan, Bipolar 1 disorder, mixed F3 1.60 [facility] [address] [facility] [id number] [address] [place] [address] Jan, Low back pain M54.5 ; Hyperl ipidemia, unspecified hyperlipidemia type E78.5 and Bipolar 1 disorder, mixed F31.60 [facility] [address] [facility] [id number] [address] [place] [address] Jan, Bipolar 1 disorder, mixed F3 1.60 [place] [address] [place] [id number] [address] [place] [address] Jan, Bipolar 1 disorder, mixed F3 1.60 [place] [address] [place] [id number] [place] [address] Jan, Bipolar 1 disorder, mixed F3 1.60 [place] [address] [place] [id number] [place] [address] Jan, Bipolar 1 disorder, mixed F3 1.60 [facility] [address] [place] [id number] [address] [place] [address] Dec, Bipolar 1 disorder, mixed F3 1.60 ; Generalized anxiety disorder F41.1 and Other half-way (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 Z79.899 [place] [address] [facility] [id number] [address] [place] [address] Dec, Other watermaster (current) dr ug therapy Z79.899 [facility] [address] [facility] [id number] [address] [place] [address] Dec, Bipolar 1 disorder, mixed F3 1.60 [facility] [address] [facility] [id number] [address] [place] [address] Dec, Bipolar 1 disorder, mixed F3 1.60 [facility] [address] [address] Nov, Bipolar 1 disorder, mixed F3 1.60 [facility] [address] [place] 2[address] Nov, Bipolar 1 disorder, mixed F3 1.60 [facility] [address] [address] Nov, Bipolar 1 disorder, mixed F3 1.60 [facility] [address] [place] [id number] [place] [address] Nov, Allergic rhinitis J30.9 [place] [address] [address] Nov, Allergic rhinitis J30.9 [place] [address] [address] Nov, [facility] [address] [address] Nov, Bipolar 1 disorder, mixed F3 1.60 [place] [address] [address] Nov, Fibromyalgia M79.7 and Aller gic rhinitis J30.9 [facility] [address] [address] October, Bipolar 1 disorder, mixed F3 1.60 [facility] [address] [address] October, Acute nasopharyngitis J00 [facility] [address] [address] October, Bitten or stung by nonvenomo us insect and other nonvenomous arthropods, initial encounter W57.XXXA and Insect bite (nonvenomous) of abdominal wall, initial encounter S30.861A [facility] [address] [address] October, Insect bite (nonvenomous) of abdominal wall, initial encounter S30.861A ; Bitten or stung by nonvenomous insect and other nonvenomous arthropods, initial encounter W57.XXXA ; Allergic rhinitis J30.9 and Low back pain M54.5 [facility] [address] [id number] [address] [place] [address] October, Bipolar 1 disorder, mixed F3 1.60 [facility] [address] [id number] [address] [place] [address] October, [facility] [address] [id number] [address] [place] [address] October, [facility] [address] [id number] [address] [place] [address] October, Bipolar 1 disorder, mixed F3 1.60 [facility] [address] [id number] [address] [place] [address] Sep, Bipolar 1 disorder, mixed F3 1.60 [facility] [address] [id number] [address] [place] [address] Sep, Other chronic pain G89.29 [facility] [address] [facility] [id number] [address] [place] [address] Sep, [facility] [address] [id number] [address] [place] [address] Sep, Bipolar 1 disorder, mixed F3 1.60 [facility] [address] [id number] [address] [place] [address] Sep, Allergic rhinitis J30.9 and Sciatica of left side M54.32 [facility] [address] [facility] [id number] [address] [place] [address] Sep, Bipolar 1 disorder, mixed F3 1.60 [facility] [address] [facility] [id number] [address] [place] [address] Sep, Bipolar 1 disorder, mixed F3 1.60 and Generalized anxiety disorder F41.1 [facility] [address] [id number] [address] [place] [address] Aug, [facility] [address] [id number] [address] [place] [address] Aug, Bipolar 1 disorder, mixed F3 1.60 [facility] [address] [id number] [address] [place] [address] Aug, Bipolar 1 disorder, mixed F3 1.60 [facility] [address] [id number] [address] [place] [address] Aug, [facility] [address] [facility] [id number] [address] [place] [address] Aug, Generalized anxiety disorder F41.1 [facility] [address] [facility] [id number] [address] [place] [address] Aug, Bipolar 1 disorder, mixed F3 1.60 [facility] [address] [facility] [id number] [address] [place] [address] Aug, Plantar wart of right foot B 07.0 [facility] [address] [facility] [id number] [address] [place] [address] Aug, Bipolar 1 disorder, mixed F3 1.60 [facility] [address] [facility] [id number] [address] [place] [address] Jul, Bipolar 1 disorder, mixed F3 1.60 [facility] [address] [facility] [id number] [address] [place] [address] Jul, [facility] [address] [facility] [id number] [address] [place] [address] 14 Jul, 2017 Bipolar 1 disorder, mixed F3 1.60 [facility] [address] [facility] [id number] [address] [place] [address] 09 Jul, 2017 Generalized anxiety disorder F41.1 [facility] [address] [facility] [id number] [address] [place] [address] 07 Jul, 2017 Bipolar 1 disorder, mixed F3 1.60 [facility] [address] [place] [id number] [address] [place] [address] 07 Jul, 2017 Acute left-sided low back pa in with left-sided sciatica M54.42 [place] [address] [place] [id number] [place] [address] 05 Jul, 2017 Coccydynia M53.3 [place] [address] [place] [id number] [place] [address] Jun, Bipolar 1 disorder, mixed F3 1.60 [facility] [address] [address] Jun, Acute nasopharyngitis J00 [place] [address] [address] Jun, Bipolar 1 disorder, mixed F3 1.60 [place] [address] [place] [id number] [place] [address] Jun, Fibromyalgia M79.7 [place] [address] [address] Jun, Bipolar 1 disorder, mixed F3 1.60 [place] [address] [place] [id number] [place] [address] Jun, Fibromyalgia M79.7 and Bipol ar 1 disorder, mixed F31.60 [place] [address] [place] [id number] [address] [place] [address] May, Bipolar 1 disorder, mixed F3 1.60 ; Generalized anxiety disorder F41.1 and Other watermaster (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 Z79.899 [place] [address] [place] [id number] [address] [place] [address] May, Bipolar 1 disorder, mixed F3 1.60 [facility] [address] [place] [id number] [place] [address] May, Cough R05 and Body aches R52 [facility] [address] [address] 10 May, 2017 Bladder spasm N32.89 and Acu te cystitis without hematuria N30.00 [facility] [address] [address] 07 May, 2017 Bipolar 1 disorder, mixed F3 1.60 [place] [address] [address] 30 Apr, 2017 [place] [address] [address] Apr, Major depressive disorder, r ecurrent episode, moderate F33.1 and Encounter for immunization Z23 [place] [address] [address] Apr, Bipolar 1 disorder, mixed F3 1.60 [place] [address] [address] Apr, Bipolar 1 disorder, mixed F3 1.60 [place] [address] [address] 16 Apr, 2017 Bipolar 1 disorder, mixed F3 1.60 [place] [address] [address] 13 Apr, 2017 Yeast vaginitis B37.3 [place] [address] [address] 09 Apr, 2017 Bipolar 1 disorder, mixed F3 1.60 [facility] [address] [address] 07 Apr, 2017 Cellulitis L03[address] for immunization Z23 [place] [address] [address] 02 Apr, 2017 Bipolar 1 disorder, mixed F3 1.60 [place] [address] [address] Mar, Bipolar 1 disorder, mixed F3 1.60 [place] [address] [place] [id number] [place] [address] Mar, Bipolar 1 disorder, mixed F3 1.60 [place] [address] [place] [id number] [place] [address] Mar, Imbalance R26.89 and Encount er for immunization Z23 [place] [address] [place] [id number] [place] [address] Mar, Generalized anxiety disorder F41.1 [place] [address] [address] Mar, Bipolar 1 disorder, mixed F3 1.60 [place] [address] [place] [id number] [place] [address] Mar, Generalized anxiety disorder F41.1 [place] [address] [place] [id number] [place] [address] Mar, Bipolar 1 disorder, mixed F3 1.60 [place] [address] [place] [id number] [place] [address] Mar, Bipolar 1 disorder, mixed F3 1.60 [place] [address] [place] [id number] [place] [address] Feb, Bipolar 1 disorder, mixed F3 1.60 [place] [address] [place] [id number] [place], [place] [address] Feb, Bipolar 1 disorder, mixed F3 1.60 and Generalized anxiety disorder F41.1 [place] [address] [place] [id number] [place] [address] Feb, Gastritis without bleeding, unspecified chronicity, unspecified gastritis type K29.70 ; Hammer toe of right foot M20.41 and Other viral warts B07.8 [place] [address] [place] [id number] [place] [address] Feb, Bipolar 1 disorder, mixed F3 1.60 [facility] [address] [facility] [id number] [address] [place] [phone] 13 Feb, 2017 Bipolar 1 disorder, mixed F3 1.60 [facility] [address] [facility] [id number] [address] [place] [phone] 05 Feb, 2017 Bipolar 1 disorder, mixed F3 1.60 [facility] [address] [facility] [id number] [address] [place] [phone] Jan, Encounter for screening mamm ogram for breast cancer Z12.31 ; Other viral warts B07.8 and Allergic rhinitis J30.9 [facility] [address] [facility] [id number] [address] [place] [phone] Jan, Bipolar 1 disorder, mixed F3 1.60 [facility] [address] [facility] [id number] [address] [place] [phone] Jan, Bipolar 1 disorder, mixed F3 1.60 [facility] [address] [facility] [id number] [address] [place] [phone] 14 Jan, 2017 [facility] [address] [facility] [id number] [address] [place] [phone] Jan, Bipolar 1 disorder, mixed F3 1.60 [facility] [address] [facility] [id number] [address] [place] [phone] 04 Jan, 2017 Bipolar 1 disorder, mixed F3 1.60 [facility] [address] [facility] [id number] [address] [place] [phone] 02 Jan, 2017 Allergic rhinitis J30.9 ; He maturia R31.9 and Colon cancer screening Z12.11 [facility] [address] [facility] [id number] [address] [place] [phone] Dec, Bipolar 1 disorder, mixed F3 1.60 [facility] [address] [facility] [id number] [address] [place] [phone] 18 Dec, 2016 Bipolar 1 disorder, mixed F3 1.60 ; Generalized anxiety disorder F41.1 and Other half-way (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 Z79.899 [facility] [address] [facility] [id number] [address] [place] [phone] Dec, Bipolar 1 disorder, mixed F3 1.60 [facility] [address] [facility] [id number] [address] [place] [phone] Dec, Bipolar 1 disorder, mixed F3 1.60 [facility] [address] [place] [place] [id number] [address] [place] [address] Dec, Bipolar 1 disorder, mixed F3 1.60 [facility] [address] [place] [id number] [address] [place] [address] Dec, Low back pain M54.5 and Recu rrent urinary tract infection N39.0 [place] [address] [place] [id number] [address] [place] [address] Nov, Bipolar 1 disorder, mixed F3 1.60 [place] [address] [place] [id number] [address] [place] [address] Nov, Bipolar 1 disorder, mixed F3 1.60 [facility] [place] [address] [place] [id number] [address] [place] [address] Nov, Bipolar 1 disorder, mixed F3 1.60 [facility] [place] [address] [place] [id number] [address] [place] [address] Nov, Bipolar 1 disorder, mixed F3 1.60 [facility] [place] [address] [place] [id number] [address] [place] [address] Nov, [place] [address] [place] [id number] [address] [place] [address] Nov, Anesthesia of skin R20.0 ; F requent UTI N39.0 ; Tobacco abuse Z72.0 and Colon cancer screening Z12.11 [facility] [address] [place] [id number] [address] [place] [address] Nov, Bipolar 1 disorder, mixed F3 1.60 [place] [address] [place] [id number] [address] [place] [address] October, Bipolar 1 disorder, mixed F3 1.60 [facility] [address] [place] [id number] [address] [place] [address] October, Bipolar 1 disorder, mixed F3 1.60 [facility] [address] [facility] [id number] [address] [place] [address] October, Bipolar 1 disorder, mixed F3 1.60 [facility] [address] [place] [id number] [place] [address] October, Bipolar 1 disorder, mixed F3 1.60 [facility] [address] [place] [id number] [address] [place] [address] October, Bipolar 1 disorder, mixed F3 1.60 [place] [place] [address] [place] [id number] [place] [address] October, Cervicalgia M54.2 and Bipola r 1 disorder, mixed F31.60 [facility] [place] [address] [place] [id number] [address] [place] [address] October, Hypertension I10 ; Hyperlipi demia, unspecified hyperlipidemia type E78.5 and Family history of thyroid disease Z83.49 [place] [address] [place] [id number] [place] [address] October, [facility] [address] [place] [id number] [address] [place] [address] October, Hypertension I10 ; Hyperlipi demia, unspecified hyperlipidemia type E78.5 and Family history of thyroid problem Z83.49 [place] [place] [address] [place] [id number] [address] [place] [address] October, Bipolar 1 disorder, mixed F3 1.60 [place] [place] [address] [place] [id number] [place], [place] [address] Sep, Bipolar 1 disorder, mixed F3 1.60 [facility] [address] [place] [id number] [address] [place] [address] Sep, Bipolar 1 disorder, mixed F3 1.60 [facility] [address] [place] [id number] [address] [place] [address] Sep, Bipolar 1 disorder, mixed F3 1.60 [facility] [address] [place] [id number] [address] [place] [address] Sep, History of colon polyps Z86. 010 and Hematochezia K92.1 [facility] [address] [place] [id number] [address] [place] [address] Sep, Major depressive disorder, r ecurrent episode, moderate F33.1 [facility] [address] [place] [id number] [address] [place] [address] Sep, Bipolar 1 disorder, mixed F3 1.60 [facility] [place] [address] [place] [id number] [place] [address] Aug, Hot flashes due to menopause N95.1 [facility] [place] [address] [place] [id number] [address] [place] [address] Aug, Bipolar 1 disorder, mixed F3 1.60 [facility] [address] [place] [id number] [address] [place] [address] Aug, [facility] [address] [id number] [place] [address] Aug, Bipolar 1 disorder, mixed F3 1.60 [place] [place] [address] [place] [id number] [address] [place] [address] Aug, Bipolar 1 disorder, mixed F3 1.60 [facility] [address] [place] [id number] [address] [place] [address] Aug, Hot flashes due to menopause N95.1 ; Cervicalgia M54.2 and Ataxia R27.0 [facility] [address] [place] [id number] [address] [place] [address] Jul, Bipolar 1 disorder, mixed F3 1.60 [facility] [place] [address] [place] [id number] [address] [place] [address] Jul, Bipolar 1 disorder, mixed F3 1.60 [facility] [address] Jul, Bipolar 1 disorder, mixed F3 1.60 [facility] [address] 13 Jul, 2016 Bipolar 1 disorder, mixed F3 1.60 [place] [address] Jul, Bipolar 1 disorder, mixed F3 1.60 [place] [address] 08 Jul, 2016 Cervicalgia M54.2 ; Tremor R 25.1 ; Hearing abnormally acute, unspecified laterality H93.239 ; Alopecia L65.9 ; Encounter for immunization Z23 and Family history of thyroid disease Z83.49 [place] [address] [place] [address] Jul, Bipolar 1 disorder, mixed F3 1.60 [place] [address] Jun, [place] [address] Jun, Hearing disorder, unspecifie d laterality H93.299 [facility] [place] [address] Jun, Bipolar 1 disorder, mixed F3 1.60 [place] [address] [place] [address] Jun, Bipolar 1 disorder, mixed F3 1.60 [place] [address] Jun, Allergic rhinitis J30.9 [place] [address] [address] Jun, Bipolar 1 disorder, mixed F3 1.60 [facility] [address] [id number] [address] [place] [address] Jun, Bipolar 1 disorder, mixed F3 1.60 [facility] [address] [id number] [address] [place] [address] Jun, Allergic rhinitis J30.9 [facility] [address] [id number] [address] [place] [address] Jun, Allergic rhinitis J30.9 [facility] [address] [id number] [address] [place] [address] Jun, Bipolar 1 disorder, mixed F3 1.60 [facility] [address] [id number] [address] [place] [address] May, Bipolar 1 disorder, mixed F3 1.60 [facility] [address] [id number] [address] [place] [address] May, Bipolar 1 disorder, mixed F3 1.60 [facility] [address] [id number] [address] [place] [address] May, [facility] [address] [id number] [address] [place] [address] May, Bipolar 1 disorder, mixed F3 1.60 [facility] [address] [id number] [address] [place] [address] May, Bipolar 1 disorder, mixed F3 1.60 [facility] [address] [id number] [address] [place] [address] May, [facility] [address] [id number] [address] [place] [address] May, [facility] [address] [id number] [address] [place] [address] May, [facility] [address] [id number] [address] [place] [address] May, Abdominal pain, unspecified location R10.9 [facility] [address] [address] May, [facility] [address] [address] Apr, Hematuria R31.9 ; Ataxia R27 .0 and Hearing loss, unspecified laterality H91.90 [facility] [address] [address] Apr, Bipolar 1 disorder, mixed F3 1.60 [facility] [address] [address] Apr, Acute effusion of both middl e ears H65.193 [place] [address] [address] Apr, Hematuria R31.9 and Pyelonep hritis N12 [place] [address] [address] Apr, [place] [address] [address] Mar, Bipolar 1 disorder, mixed F3 1.60 [place] [address] [address] Mar, [place] [address] [address] Mar, Bipolar 1 disorder, mixed F3 1.60 [place] [address] [address] Mar, Bipolar 1 disorder, mixed F3 1.60 [place] [address] [address] Mar, Encounter for immunization Z 23 and Gastritis without bleeding, unspecified chronicity, unspecified gastritis type K29.70 [facility] [address] [address] 05 Mar, 2016 Bipolar 1 disorder, mixed F3 1.60 and Grief F43.20 [place] [address] [facility] [id number] [address] [place] [address] 05 Mar, 2016 Gastritis without bleeding, unspecified chronicity, unspecified gastritis type K29.70 [facility] [address] [place] [id number] [address] [place] [address] 05 Mar, 2016 Bipolar 1 disorder, mixed F3 1.60 [place] [address] [place] [id number] [place] [id number] Mar, Gastritis without bleeding, unspecified chronicity, unspecified gastritis type K29.70 [place] [address] [place] [id number] [place] [address] Mar, [place] [address] [place] [id number] [place] [address] Feb, Bipolar 1 disorder, mixed F3 1.60 [place] [address] [place] 227422[address] Feb, Bipolar 1 disorder, mixed F3 1.60 and Grief F43.20 [place] [address] [place] [id number] [address] [place] [address] Feb, Gastritis without bleeding, unspecified chronicity, unspecified gastritis type K29.70 [facility] [place] [address] [place] [id number] [address] [place] [address] 14 Feb, 2016 Bipolar 1 disorder, mixed F3 1.60 [facility] [address] [facility] [id number] [address] [place] [address] Feb, Gastroesophageal reflux dise ase, esophagitis presence not specified K21.9 [place] [address] [facility] [id number] [address] [place] [address] Jan, Bipolar 1 disorder, mixed F3 1.60 [place] [address] [place] [id number] [place], [place] [address] Jan, Bipolar 1 disorder, mixed F3 1.60 and Unsteady gait R26.81 [place] [address] [place] [id number] [address] [place] [address] Jan, Bipolar 1 disorder, mixed F3 1.60 [facility] [address] [place] [id number] [address] [place] [address] Jan, Bipolar 1 disorder, mixed F3 1.60 and Other watermaster (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 Z79.899 [facility] [address] [place] [id number] [address] [place] [address] Jan, Bipolar 1 disorder, mixed F3 1.60 [facility] [address] [place] [id number] [address] [place] [address] Jan, Bipolar 1 disorder, mixed F3 1.60 [facility] [address] [place] [id number] [place] [address] Jan, Bipolar 1 disorder, mixed F3 1.60 ; Grief F43.20 and Other half-way (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 Z79.899 [facility] [address] [place] [id number] [address] [place] [address] Jan, Bipolar 1 disorder, mixed F3 1.60 [facility] [address] [place] [id number] [address] [place] [address] Dec, [facility] [address] [address] Dec, Bipolar 1 disorder, mixed F3 1.60 ; Vitamin D deficiency, unspecified E55.9 ; H/O allergic rhinitis Z87.09 ; Other chronic pain G89.29 and Dorsalgia, unspecified M54.9 [facility] [address] [place] [id number] [address] [place] [address] Dec, [facility] [address] [place] [id number] [place] [address] Dec, Bipolar 1 disorder, mixed F3 1.60 [facility] [address] [place] [id number] [address] [place] [address] Dec, Major depressive disorder, r ecurrent episode, moderate F33.1 [place] [address] [facility] [id number] [address] [place] [address] Dec, Major depressive disorder, r ecurrent episode, moderate F33.1 [facility] [address] [facility] [id number] [address] [place] [address] Nov, [facility] [address] [facility] [id number] [address] [place] [address] Nov, Bipolar 1 disorder, mixed F3 1.60 [place] [address] [facility] [id number] [address] [place] [address] Nov, Major depressive disorder, r ecurrent episode, moderate F33.1 [place] [address] [facility] [id number] [address] [place] [address] Nov, Cervicalgia M54.2 ; Arthralg ia of hip, unspecified laterality M25.559 ; Allergic rhinitis J30.9 and Hormone replacement therapy Z79.890 [facility] [address] [facility] [id number] [address] [place] [address] Nov, Other seasonal allergic rhin itis J30.2 [place] [address] [facility] [id number] [address] [place] [address] October, Major depressive disorder, r ecurrent episode, moderate F33.1 [place] [address] [facility] [id number] [address] [place] [address] October, Major depressive disorder, r ecurrent episode, moderate F33.1 and Arthralgia of hip, unspecified laterality M25.559 [place] [address] [facility] [id number] [address] [place] [address] October, Grief F43.20 ; Hypertension I10 ; Hyperlipidemia, unspecified hyperlipidemia type E78.5 ; Other chronic pain G89.29 and Allergic rhinitis, unspecified allergic rhinitis type J30.9 [facility] [address] [facility] [id number] [address] [place] [address] October, Major depressive disorder, r ecurrent episode, moderate F33.1 [facility] [address] [facility] [id number] [address] [place] [address] Sep, Major depressive disorder, r ecurrent episode, moderate F33.1 [facility] [address] [facility] [id number] [address] [place] [address] Sep, [facility] [address] [facility] [id number] [address] [place] [address] Sep, Major depressive disorder, r ecurrent episode, moderate F33.1 [facility] [address] [facility] [id number] [address] [place] [address] Sep, Grief F43.20 [place] [address] [facility] [id number] [address] [place] [address] Aug, Major depressive disorder, r ecurrent episode, moderate F33.1 [place] [address] [place] [id number] [address] [place] [address] Aug, Bipolar 1 disorder, mixed F3 1.60 [facility] [address] [facility] [id number] [address] [place] [address] Aug, Allergic rhinitis J30.9 ; Ce rvicalgia M54.2 and Low back pain M54.5 [place] [address] [facility] [id number] [address] [place] [address] Aug, Major depressive disorder, r ecurrent episode, moderate F33.1 [facility] [address] [facility] [id number] [address] [place] [address] Aug, Sinusitis J32.9 and Tobacco 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 [facility] [address] [facility] [id number] [address] [place] [address] Aug, [facility] [address] [facility] [id number] [address] [place] [address] Aug, Depressive disorder, not els ewhere classified F32.9 ; Hormone replacement therapy Z79.[address] scan, head R93.0 [place] [address] [id number] [address] [place] [address] Aug, Major depressive disorder, r ecurrent episode, moderate F33.1 [facility] [address] [facility] [id number] [address] [place] [address] Jul, Major depressive disorder, r ecurrent episode, moderate F33.1 [facility] [address] [facility] [id number] [address] [place] [address] Jul, Abdominal pain R10.9 and Hyp ertension I10 [facility] [address] [facility] [id number] [address] [place] [address] Jul, [facility] [address] [facility] [id number] [address] [place] [address] Jul, Major depressive disorder, r ecurrent episode, moderate F33.1 [facility] [address] [place] [id number] [address] [place] [address] Jul, [facility] [address] [facility] [id number] [address] [place] [address] Jul, [facility] [address] [place] [id number] [address] [place] [address] Jun, [facility] [address] [place] [id number] [address] [place] [address] Jun, Depressive disorder, not els ewhere classified F32.9 [facility] [address] [facility] [id number] [address] [place] [address] Jun, [facility] [address] [facility] [id number] [address] [place] [address] Jun, [facility] [address] [facility] [id number] [address] [place] [address] Jun, Arthralgia of hip, unspecifi ed laterality M25.559 ; Bruising, spontaneous R23.3 and Night sweats R61 [facility] [address] [facility] [id number] [address] [place] [address] Jun, [facility] [address] [id number] [address] [place] [address] Jun, [facility] [address] [id number] [address] [place] [address] May, [facility] [address] [id number] [address] [place] [address] May, Myalgia M79.1 and Screening, lipid Z13.220 [facility] [address] [id number] [address] [place] [address] Apr, Status post cervical spinal fusion Z98.1 ; Fibromyalgia M79.7 and Unsteady gait R26.81 [facility] [address] [id number] [address] [place] [address] Nov, [facility] [address] [id number] [address] [place] [address] Nov, [facility] [address] [id number] [address] [place] [address] October, [facility] [address] [facility] [id number] [address] [place] [address] October, [facility] [address] [id number] [address] [place] [phone] October, [facility] [address] [id number] [address] [place] [address] October, [facility] [address] [id number] [address] [place] [address] October, [facility] [address] [facility] [id number] [address] [place] [address] October, Dysuria 788.1 ; Nausea 787.0 2 and Urinary tract infection 599.0 [facility] [address] [id number] [address] [place] [address] Sep, [facility] [address] [id number] [facility] [place] [id number] 13 Sep, 2014 [facility] [address] [id number] [address] [place] [address], [place] [id number] 25 Aug, 2014 [facility] [address] [id number] [address] [place] [address], [place] [id number] 25 Aug, 2014 [facility] [address] [id number] [address] [place] [address], [place] [id number] 24 Aug, 2014 [facility] [address] [id number] [address] [place] [address], [place] [id number] 24 Aug, 2014 [facility] [address] [id number] [address] [place] [address], [place] [id number] 23 Aug, 2014 [facility] [address] [id number] [address] [place] [address], [place] [id number] 19 Aug, 2014 [facility] [address] [id number] [address] [place] [address], [place] [id number] 19 Aug, 2014 [facility] [address] [id number] [address] [place] [address], [place] [id number] 19 Aug, 2014 [facility] [address] [id number] [address] [place] [address], [place] [id number] 19 Aug, 2014 [facility] [address] [id number] [address] [place] [address], [place] [id number] 18 Aug, 2014 [facility] [address] [id number] [address] [place] [address], [place] [id number] 18 Aug, 2014 [facility] [address] [id number] [address] [place] [address], [place] [id number] 13 Aug, 2014 [facility] [address] [id number] [address] [place] [address], [place] [id number] 13 Aug, 2014 [facility] [address] [id number] [address] [place] [address], [place] [id number] 11 Aug, 2014 [facility] [address] [id number] [address] [place] [address], [place] [id number] Aug, [facility] [address] [id number] [address] [place] [address], [place] [id number] Aug, [facility] [address] [id number] [address] [place] [address], [place] [id number] Aug, [facility] [address] [id number] [address] [place] [address], [place] [id number] Aug, 2014 [facility] [address] [id number] [address] [place] [address], [place] [id number] Aug, 2014 [facility] [address] [id number] [address] [place] [address], [place] [id number] Aug, [facility] [address] [id number] [address] [place] [address], [place] [id number] Aug, [facility] [address] [id number] [address] [place] [address], [place] [id number] Aug, [facility] [address] [id number] [address] [place] [address], [place] [id number] Jul, 2014 [facility] [address] [id number] [address] [place] [address], [place] [id number] Jul, [facility] [address] [id number] [address] [place] [address], [place] [id number] Jul, [facility] [address] [id number] [address] [place] [address], [place] [id number] Jul, 2014 [facility] [address] [id number] [address] [place] [id number] Jul, 2014 [facility] [address] [id number] [address] [place] [address], [place] [id number] Jul, [facility] [address] [id number] [address] [place] [address], [place] [id number] Jul, 2014 [facility] [address] [id number] [address] [place] [address], [place] [id number] Jul, 2014 [facility] [address] [id number] [address] [place] [address], [place] [id number] Jul, 2014 [facility] [address] [id number] [address] [place] [address], [place] [id number] Jul, 2014 [facility] [address] [id number] [address] [place] [address], [place] [id number] Jul, 2014 [facility] [address] [id number] [address] [place] [address], [place] [id number] Jul, 2014 [facility] [address] [id number] [address] [place] [address], [place] [address] Jul, [facility] [address] [id number] [address] [place] [address], [place] [address] Jul, [facility] [address] [id number] [address] [place] [address], [place] [address] Jun, [facility] [address] [id number] [address] [place] [address], [place] [address] Jun, [facility] [address] [id number] [address] [place] [address], [place] [address] Jun, [facility] [address] [id number] [address] [place] [address], [place] [address] Jun, [facility] [address] [id number] [address] [place] [address], [place] [address] Jun, [facility] [address] [id number] [address] [place] [address], [place] [address] Jun, [facility] [address] [id number] [address] [place] [address], [place] [address] May, [facility] [address] [id number] [address] [place] [address], [place] [address] May, [facility] [address] [id number] [address] [place] [address], [place] [address] May, [facility] [address] [id number] [address] [place] [address], [place] [address] May, [facility] [address] [id number] [address] [place] [address], [place] [address] May, [facility] [address] [id number] [address] [place] [address], [place] [address] May, [facility] [address] [id number] [address] [place] [address], [place] [address] Apr, [facility] [address] [id number] [address] [place] [address], [place] [address] Apr, [facility] [address] [id number] [address] [place] [address], [place] [address] Apr, [facility] [address] [id number] [address] [place] [address], [place] [address] Apr, [facility] [address] [id number] [address] [place] [address], [place] [address] Apr, [facility] [address] [id number] [address] [place] [address], [place] [address] Apr, [facility] [address] [id number] [address] [place] [address], [place] [address] Mar, [facility] [address] [id number] [address] [place] [id number] Mar, [facility] [address] [id number] [address] [place] [id number] Mar, [facility] [address] [id number] [address] [place] [id number] Mar, [facility] [address] [id number] [address] [place] [address], [place] [address] Mar, [facility] [address] [id number] [address] [place] [id number] Mar, [facility] [address] [id number] [address] [place] [id number] Mar, [facility] [address] [id number] [address] [place] [address], [place] [address] Mar, [facility] [address] [id number] [address] [place] [address], [place] [address] Mar, [facility] [address] [id number] [address] [place] [address], [place] [address] Mar, [facility] [address] [id number] [address] [place] [address], [place] [address] Mar, [facility] [address] [id number] [address] [place] [address], [place] [address] Mar, [facility] [address] [id number] [address] [place] [address], [place] [address] 30 Feb, 2014 [facility] [address] [id number] [address] [place] [address], [place] [address] 29 Feb, 2014 [facility] [address] [id number] [address] [place] [address], [place] [address] 29 Feb, 2014 [facility] [address] [id number] [address] [place] [address], [place] [address] 23 Feb, 2014 [facility] [address] [id number] [address] [place] [address], [place] [id number] 23 Feb, 2013 [facility] [address] [id number] [address] [place] [address], [place] [address] 08 Feb, 2014 [facility] [address] [id number] [address] [place] [address], [place] [address] 08 Feb, 2014 [facility] [address] [id number] [address] [place] [address], [place] [address] Jan, [facility] [address] [id number] [address] [place] [address], [place] [address] Jan, [facility] [address] [id number] [address] [place] [address], [place] [address] Jan, [facility] [address] [id number] [address] [place] [address], [place] [address] Dec, [facility] [address] [id number] [address] [place] [address], [place] [address] Dec, [facility] [address] [id number] [address] [place] [address], [place] [address] Dec, [facility] [address] [id number] [address] [place] [address], [place] [address] Dec, [facility] [address] [id number] [address] [place] [address], [place] [address] Sep, [facility] [address] [id number] [address] [place] [address], [place] [address] Sep, [facility] [address] [id number] [address] [place] [address], [place] [address] Sep, [facility] [address] [id number] [address] [place] [address], [place] [address] Sep, [facility] [address] [id number] [address] [place] [address], [place] [address] Sep, [facility] [address] [id number] [address] [place] [address], [place] [address] Sep, [facility] [address] [id number] [address] [place] [address], [place] [address] Sep, [facility] [address] [id number] [address] [place] [address], [place] [address] Sep, [facility] [address] [id number] [address] [place] [address], [place] [address] Aug, [facility] [address] [id number] [address] [place] [address], [place] [address] Aug, [facility] [address] [id number] [address] [place] [address], [place] [address] May, [facility] [address] [id number] [address] [place] [address], [place] [address] May, [facility] [address] [id number] [address] [place] [address], [place] [address] Apr, [facility] [address] [id number] [address] [place] [address], [place] [address] Apr, [facility] [address] [id number] [address] [place] [address], [place] [address] Apr, [facility] [address] [id number] [address] [place] [address], [place] [address] Apr, [facility] [address] [id number] [address] [place] [address], [place] [address] Apr, [facility] [address] [id number] [address] [place] [address], [place] [address] Apr, [facility] [address] [id number] [address] [place] [address], [place] [address] May, [facility] [address] [id number] [address] [place] [address], [place] [address] May, [facility] [address] [id number] [address] [place] [address], [place] [address] May, [facility] [address] [id number] [address] [place] [address], [place] [address] May, [facility] [address] [id number] [address] [place] [address], [place] [address] May, [facility] [address] [id number] [address] [place] [address], [place] [address] May, [facility] [address] [id number] [address] [place] [address], [place] [address] Apr, [facility] [address] [id number] [address] [place] [address], [place] [address] Apr, [facility] [address] [id number] [address] [place] [address], [place] [address] Apr, [facility] [address] [id number] [address] [place] [address], [place] [address] Apr, [facility] [address] [id number] [address] [place] [address], [place] [address] 08 Apr, 2012 [facility] [address] [id number] [address] [place] [address], [place] [address] 08 Apr, 2012 [facility] [address] [id number] [address] [place] [address], [place] [address] Apr, [facility] [address] [id number] [address] [place] [address], [place] [address] Apr, [facility] [address] [id number] [address] [place] [address], [place] [address] Apr, [facility] [address] [id number] [address] [place] [address], [place] [address] Apr, [facility] [address] [id number] [address] [place] [address], [place] [address] Mar, [facility] [address] [id number] [address] [place] [address], [place] [address] Mar, [facility] [address] [id number] [address] [place] [address], [place] [address] Mar, [facility] [address] [id number] [address] [place] [address], [place] [address] Mar, [facility] [address] [id number] [address] [place] [address], [place] [address] Mar, [facility] [address] [id number] [address] [place] [address], [place] [address] Mar, [facility] [address] [id number] [address] [place] [address], [place] [address] Mar, [facility] [address] [id number] [address] [place] [address], [place] [address] Mar, [facility] [address] [id number] [address] [place] [address], [place] [address] Mar, [facility] [address] [id number] [address] [place] [address], [place] [address] Feb, [facility] [address] [id number] [address] [place] [address], [place] [address] 16 Feb, 2012 [facility] [address] [id number] [address] [place] [address], [place] [address] Feb, [facility] [address] [id number] [address] [place] [address], [place] [address] Jan, [facility] [address] [id number] [address] [place] [address], [place] [address] Jan, [facility] [address] [id number] [address] [place] [address], [place] [address] Jan, [facility] [address] [id number] [address] [place] [address], [place] [address] Jan, [facility] [address] [id number] [address] [place] [address], [place] [address] Jan, [facility] [address] [id number] [address] [place] [address], [place] [address] Jan, [facility] [address] [id number] [address] [place] [address], [place] [address] Jan, [facility] [address] [id number] [address] [place] [address], [place] [address] Jan, [facility] [address] [id number] [address] [place] [address], [place] [address] Jan, [facility] [address] [id number] [address] [place] [address], [place] [address] Jan, [facility] [address] [id number] [address] [place] [address], [place] [address] Dec, [facility] [address] [id number] [address] [place] [address], [place] [address] Dec, [facility] [address] [id number] [address] [place] [address], [place] [address] Dec, [facility] [address] [id number] [address] [place] [address], [place] [address] 17 Dec, 2011 [facility] [address] [id number] [address] [place] [address], [place] [address] Nov, [facility] [address] [id number] [address] [place] [address], [place] [address] 08 Nov, 2011 [facility] [address] [id number] [address] [place] [address], [place] [address] Nov, [facility] [address] [id number] [address] [place] [address], [place] [address] October, [facility] [address] [id number] [address] [place] [address], [place] [address] October, [facility] [address] [id number] [address] [place] [address], [place] [address] October, [facility] [address] [id number] [address] [place] [address], [place] [address] October, [facility] [address] [id number] [address] [place] [address], [place] [address] October, [facility] [address] [id number] [address] [place] [address], [place] [address] October, [facility] [address] [id number] [address] [place] [address], [place] [address] Aug, [facility] [address] [id number] [address] [place] [address], [place] [address] Mar, [facility] [address] [id number] [address] [place] [address], [place] [address] Nov, [facility] [address] [id number] [address] [place] [address], [place] [address] May, [facility] [address] [id number] [address] [place] [address], [place] [address] May, [facility] [address] [id number] [address] [place] [address], [place] [address] Apr, [facility] [address] [facility] [id number] [address] [address] Mar, [facility] [address] [facility] [id number] [address] [place] [id number] Mar, IMMUNIZATIONS No Known Immunizations SOCIAL HISTORY Never Assessed REASON FOR VISIT PLAN OF CARE VITAL SIGNS Height 64 in 2012-01-02 Weight 129.9 lbs 2012-01-02 Temperature 98.3 degrees Fahrenheit 2012-01-02 Heart Rate 90 bpm 2012-01-02 Respiratory Rate 20 2012-01-02 Blood pressure systolic 127 mmHg 2012-01-02 Blood pressure diastolic 79 mmHg 2012-01-02 MEDICATIONS Unknown Medications RESULTS No Results PROCEDURES Procedure Date Ordered Result Body Site THER/PROPH/DIAG INJ, SC/IM January 02, 2012 INJ TRIAMCINOLONE ACETONIDE 10 MG January 02, 2012 INSTRUCTIONS MEDICATIONS ADMINISTERED No Known Medications MEDICAL (GENERAL) HISTORY Type Description Date Medical History Severe spinal stenosis [facility] cervical spine CT and MRI done 10/2014 at [facility] with Neurosurgery at Medical History Migraine BEAR [...]
--- OUTSIDE RECORDS SUMMARY | 2019-06-19 05:10 | XMS REPORT ---
Author Author Sydnie HANCOCK [facility] Address [address] [place] [address] Care Team Providers Care Room Service Supervisor Name Role Phone NAHOMY HANCOCK Unavailable PROBLEMS Type Condition ICD9-CM Code WHQ37-JN Code Onset Dates Condition S tatus SNOMED Code Problem Age-related osteoporosis without current pathological fracture M81.0 Active 06812843 Problem Sensorineural hearing loss (SNHL) of both ears H90 .3 Active [address]842 Problem Ab[address] CT scan, head R93.0 Active 203061716 Problem Arthralgia of hip, unspecified laterality M25.559 Active 88611042 Problem Bruising, spontaneous R23.3 Active 156885418 Problem Hypertension I10 Active 6787463 3 Problem Night sweats R61 Active 2679271 0 Problem Imbalance R26.89 Active 244697352 Problem Hammer toe of right foot M20.41 Activ e 773294295 Problem Hormone replacement therapy Z79.890 Ac tive 773563581 Problem Bipolar 1 disorder, mixed F31.60 Acti ve 91712944 Problem Gastritis without bleeding, unspecified chronicity, unspecified gastritis type K29.70 Active 063203475 Problem Ataxia R27.0 Active 82659074 Problem Hearing loss, unspecified laterality H91.90 Active 08143186 Problem History of colon polyps Z86.010 Active 896052917 Problem Allergic rhinitis J30.9 Active 61 374379 Problem Hematuria, unspecified type R31.9 Ac tive 04846699 Problem Generalized anxiety disorder F41.1 A ctive 47181601 Problem Major depressive disorder, recurrent episode, moderate F33.1 Active 460327194 Problem Fibromyalgia M79.7 Active 2595584 7 Problem Bladder spasm N32.89 Active 114584 006 Problem Tobacco use disorder F17.200 Active 676533059 Problem Other chronic pain G89.29 Active 8 5080120 Problem Post menopausal syndrome N95.1 Activ e 425148345 Problem Grief F43.20 Active 17191019 Problem Hyperlipidemia, unspecified hyperlipidemia type E7 8.5 Active 66840569 Problem Acute left-sided low back pain with left-sided sciatica M54.42 Active 643667246 Problem Sciatica of left side M54.32 Active 98775746 Problem Plantar wart of right foot B07.0 Act mitchell [id number] Problem Slow transit constipation K59.01 Acti ve 91232468 ALLERGIES No Information ENCOUNTERS Encounter Location Date Diagnosis [place] [address] [place] [id number] [place] [address] Jan, [facility] [address] [address] Dec, [place] [address] [address] Dec, [place] [address] [address] Dec, Bipolar 1 disorder, mixed F3 1.60 [place] [address] [place] [id number] [place] [address] Nov, Bipolar 1 disorder, mixed F3 1.60 [place] [address] [address] Nov, Bipolar 1 disorder, mixed F3 1.60 ; Generalized anxiety disorder F41.1 ; Tobacco use disorder F17.200 and Other senior care (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 Z79.899 [place] [address] [place] [id number] [place] [address] Nov, [facility] [address] [place] [id number] [place] [address] Nov, Bipolar 1 disorder, mixed F3 1.60 [place] [address] [place] [id number] [address] [place] [address] October, Bipolar 1 disorder, mixed F3 1.60 [place] [address] [address] October, Bipolar 1 disorder, mixed F3 1.60 [place] [address] [place] [address] October, [place] [address] [place] [address] October, Bipolar 1 disorder, mixed F3 1.60 ; Generalized anxiety disorder F41.1 and Tobacco use disorder F17.200 [place] [address] [place] [address] Sep, [place] [address] [place] [id number] [place] [address] Sep, [facility] Z00.00 ; Major depressive disorder, recurrent episode, moderate F33.1 ; Allergic rhinitis J30.9 ; Bipolar 1 disorder, mixed F31.60 ; Fibromyalgia M79.7 ; Hyperlipidemia, unspecified hyperlipidemia type E78.5 ; Hormone replacement therapy Z79.890 ; Encounter for screening for lung cancer Z12.2 and Tobacco use disorder F17.200 [place] [address] [place] [address] Sep, Bipolar 1 disorder, mixed F3 1.60 [place] [address] [place] [id number] [place] [address] Sep, Other chronic pain G89.29 ; Hyperlipidemia, unspecified hyperlipidemia type E78.5 ; Breast cancer screening Z12.31 and Post menopausal syndrome N95.1 [place] [address] [place] [id number] [place] [address] Sep, Bipolar 1 disorder, mixed F3 1.60 [place] [address] [place] [id number] [place] [address] Sep, Bipolar 1 disorder, mixed F3 1.60 ; Generalized anxiety disorder F41.1 and Tobacco use disorder F17.200 [place] [address] [place] [id number] [place] [address] Sep, Gastritis without bleeding, unspecified chronicity, unspecified gastritis type K29.70 [place] [address] [facility] [id number] [address] [place] [address] 08 Sep, 2018 Exercise counseling Z71.82 [place] [address] [facility] [id number] [address] [place] [address] Aug, Exercise counseling Z71.82 [place] [address] [facility] [id number] [address] [place] [address] Aug, Bipolar 1 disorder, mixed F3 1.60 [place] [address] [facility] [id number] [address] [place] [address] Aug, Exercise counseling Z71.82 [place] [address] [place] [id number] [place] [address] Aug, Bipolar 1 disorder, mixed F3 1.60 [place] [address] [place] [id number] [address] [place] [address] Aug, Gastritis without bleeding, unspecified chronicity, unspecified gastritis type K29.70 ; Tobacco abuse Z72.0 ; Generalized anxiety disorder F41.1 and Weight gain R63.5 [place] [address] [place] [id number] [place] [address] Aug, Bipolar 1 disorder, mixed F3 1.60 ; Generalized anxiety disorder F41.1 and Tobacco use disorder F17.200 [place] [address] [place] [id number] [place] [address] Jul, Bipolar 1 disorder, mixed F3 1.60 [place] [address] [facility] [id number] [address] [place] [address] Jul, [place] [address] [place] [id number] [place] [address] Jul, Bipolar 1 disorder, mixed F3 1.60 [place] [address] [place] [id number] [place] [address] 11 Jul, 2018 Allergic rhinitis J30.9 ; Ma darion depressive disorder, recurrent episode, moderate F33.1 and Tobacco 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 [facility] [address] [facility] [id number] [address] [place] [address] Jun, [facility] [address] [facility] [id number] [address] [place] [address] Jun, [facility] [address] [facility] [id number] [address] [place] [address] Jun, Bipolar 1 disorder, mixed F3 1.60 [facility] [address] [facility] [id number] [address] [place] [address] Jun, Bipolar 1 disorder, mixed F3 1.60 [facility] [address] [facility] [id number] [address] [place] [address] Jun, Bipolar 1 disorder, mixed F3 1.60 [facility] [address] [facility] [id number] [address] [place] [address] Jun, Generalized anxiety disorder F41.1 ; Tobacco abuse Z72.0 and Major depressive disorder, recurrent episode, moderate F33.1 [facility] [address] [facility] [id number] [address] [place] [address] May, Bipolar 1 disorder, mixed F3 1.60 [facility] [address] [facility] [id number] [address] [place] [address] May, Bipolar 1 disorder, mixed F3 1.60 and Generalized anxiety disorder F41.1 [facility] [address] [facility] [id number] [address] [place] [address] May, Bipolar 1 disorder, mixed F3 1.60 [facility] [address] [facility] [id number] [address] [place] [address] May, Allergic rhinitis J30.9 [facility] [address] [facility] [id number] [address] [place] [address] May, Bipolar 1 disorder, mixed F3 1.60 [facility] [address] [facility] [id number] [address] [place] [address] May, [facility] [address] [place] [id number] [place] [address] Apr, Allergic rhinitis J30.9 ; Dy sfunction of both eustachian tubes H69.83 ; History of bladder surgery Z98.890 and Cervicalgia M54.2 [facility] [address] [place] [id number] [place] [address] Mar, Bipolar 1 disorder, mixed F3 1.60 [place] [address] [place] [id number] [place] [address] Mar, [place] [address] [address] Mar, Slow transit constipation K5 9.01 ; Encounter for immunization Z23 and Generalized anxiety disorder F41.1 [place] [address] [place] [id number] [place] [address] 27 Feb, 2018 Bipolar 1 disorder, mixed F3 1.60 [place] [address] [place] [id number] [place] [address] 26 Feb, 2018 Allergic rhinitis J30.9 [place] [address] [place] [id number] [place] [address] 24 Feb, 2018 Bipolar 1 disorder, mixed F3 1.60 [place] [address] [place] [id number] [place] [phone] 20 Feb, 2018 Bipolar 1 disorder, mixed F3 1.60 and Generalized anxiety disorder F41.1 [place] [address] [place] [id number] [place] [address] 13 Feb, 2018 Bipolar 1 disorder, mixed F3 1.60 [place] [address] [place] [id number] [place] [address] 11 Feb, 2018 Allergic rhinitis J30.9 [facility] [address] [place] [id number] [place] [address] 05 Feb, 2018 [place] [address] [place] [id number] [place] [phone] Jan, Bipolar 1 disorder, mixed F3 1.60 [facility] [address] [facility] [id number] [address] [place] [address] Jan, Low back pain M54.5 ; Hyperl ipidemia, unspecified hyperlipidemia type E78.5 and Bipolar 1 disorder, mixed F31.60 [facility] [address] [facility] [id number] [address] [place] [address] Jan, Bipolar 1 disorder, mixed F3 1.60 [facility] [address] [facility] [id number] [address] [place] [address] Jan, Bipolar 1 disorder, mixed F3 1.60 [place] [address] [place] [id number] [place] [address] Jan, Bipolar 1 disorder, mixed F3 1.60 [place] [address] [place] [id number] [address] [place] [address] Jan, Bipolar 1 disorder, mixed F3 1.60 [facility] [address] [place] [id number] [address] [place] [address] Dec, Bipolar 1 disorder, mixed F3 1.60 ; Generalized anxiety disorder F41.1 and Other test tube maker (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 Z79.899 [place] [address] [place] [id number] [place] [address] Dec, Other senior care (current) dr ug therapy Z79.899 [facility] [address] [facility] [id number] [address] [place] [address] Dec, Bipolar 1 disorder, mixed F3 1.60 [place] [address] [facility] [id number] [address] [place] [address] Dec, Bipolar 1 disorder, mixed F3 1.60 [facility] [address] [place] [id number] [address] [place] [address] Nov, Bipolar 1 disorder, mixed F3 1.60 [place] [address] [facility] [id number] [address] [place] [address] Nov, Bipolar 1 disorder, mixed F3 1.60 [facility] [address] [place] [id number] [address] [place] [address] Nov, Bipolar 1 disorder, mixed F3 1.60 [facility] [address] [facility] [id number] [address] [place] [address] 11 Nov, 2017 Allergic rhinitis J30.9 [facility] [address] [place] [id number] [place] [address] Nov, Allergic rhinitis J30.9 [facility] [address] [place] [id number] [place] [address] Nov, [facility] [address] [address] Nov, Bipolar 1 disorder, mixed F3 1.60 [place] [address] [address] Nov, Fibromyalgia M79.7 and Aller gic rhinitis J30.9 [facility] [address] [place] [address] October, Bipolar 1 disorder, mixed F3 1.60 [facility] [address] [place] [id number] [place] [address] October, Acute nasopharyngitis J00 [facility] [address] [address] October, Bitten or stung by nonvenomo us insect and other nonvenomous arthropods, initial encounter W57.XXXA and Insect bite (nonvenomous) of abdominal wall, initial encounter S30.861A [place] [address] [place] [id number] [place] [address] October, Insect bite (nonvenomous) of abdominal wall, initial encounter S30.861A ; Bitten or stung by nonvenomous insect and other nonvenomous arthropods, initial encounter W57.XXXA ; Allergic rhinitis J30.9 and Low back pain M54.5 [facility] [address] [id number] [address] [place] [address] October, Bipolar 1 disorder, mixed F3 1.60 [facility] [address] [id number] [address] [place] [address] October, [facility] [address] [id number] [address] [place] [address] October, [facility] [address] [id number] [address] [place] [address] October, Bipolar 1 disorder, mixed F3 1.60 [facility] [address] [id number] [address] [place] [address] Sep, Bipolar 1 disorder, mixed F3 1.60 [facility] [address] [id number] [address] [place] [address] Sep, Other chronic pain G89.29 [facility] [address] [id number] [address] [place] [address] Sep, [facility] [address] [id number] [address] [place] [address] Sep, Bipolar 1 disorder, mixed F3 1.60 [facility] [address] [facility] [id number] [address] [place] [address] Sep, Allergic rhinitis J30.9 and Sciatica of left side M54.32 [facility] [address] [id number] [address] [place] [address] Sep, Bipolar 1 disorder, mixed F3 1.60 [facility] [address] [id number] [address] [place] [address] Sep, Bipolar 1 disorder, mixed F3 1.60 and Generalized anxiety disorder F41.1 [facility] [address] [id number] [address] [place] [address] Aug, [facility] [address] [facility] [id number] [address] [place] [address] Aug, Bipolar 1 disorder, mixed F3 1.60 [facility] [address] [id number] [address] [place] [address] Aug, Bipolar 1 disorder, mixed F3 1.60 [facility] [address] [facility] [id number] [address] [place] [address] Aug, [facility] [address] [facility] [id number] [address] [place] [address] Aug, Generalized anxiety disorder F41.1 [facility] [address] [id number] [address] [place] [address] Aug, Bipolar 1 disorder, mixed F3 1.60 [facility] [address] [facility] [id number] [address] [place] [phone] Aug, Plantar wart of right foot B 07.0 [facility] [address] [facility] [id number] [address] [place] [address] Aug, Bipolar 1 disorder, mixed F3 1.60 [facility] [address] [facility] [id number] [address] [place] [address] Jul, Bipolar 1 disorder, mixed F3 1.60 [facility] [address] [facility] [id number] [address] [place] [phone] Jul, [facility] [address] [facility] [id number] [address] [place] [address] 14 Jul, 2017 Bipolar 1 disorder, mixed F3 1.60 [facility] [address] [facility] [id number] [address] [place] [address] Jul, Generalized anxiety disorder F41.1 [facility] [address] [facility] [id number] [address] [place] [address] Jul, Bipolar 1 disorder, mixed F3 1.60 [facility] [address] [facility] [id number] [address] [place] [address] Jul, Acute left-sided low back pa in with left-sided sciatica M54.42 [place] [address] [place] [address] 05 Jul, 2017 Coccydynia M53.3 [place] [address] [place] [id number] [address] [place] [address] Jun, Bipolar 1 disorder, mixed F3 1.60 [facility] [place] [address] [place] [address] Jun, Acute nasopharyngitis J00 [place] [address] [place] [id number] [place] [address] Jun, Bipolar 1 disorder, mixed F3 1.60 [place] [address] [address] Jun, Fibromyalgia M79.7 [place] [address] [address] Jun, Bipolar 1 disorder, mixed F3 1.60 [place] [address] [address] Jun, Fibromyalgia M79.7 and Bipol ar 1 disorder, mixed F31.60 [place] [address] [address] May, Bipolar 1 disorder, mixed F3 1.60 ; Generalized anxiety disorder F41.1 and Other senior care (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 Z79.899 [place] [address] [place] [address] May, Bipolar 1 disorder, mixed F3 1.60 [facility] N [address] [place] [address] 14 May, 2017 Cough R05 and Body aches R52 [facility] [place] [address] [place] [id number] [place] [address] 10 May, 2017 Bladder spasm N32.89 and Acu te cystitis without hematuria N30.00 [place] [address] [address] 07 May, 2017 Bipolar 1 disorder, mixed F3 1.60 [facility] [address] [place] [id number] 30 Apr, 2017 [facility] [address] [address] Apr, Major depressive disorder, r ecurrent episode, moderate F33.1 and Encounter for immunization Z23 [facility] [address] [address] 29 Apr, 2017 Bipolar 1 disorder, mixed F3 1.60 [place] [address] [place] [id number] Apr, Bipolar 1 disorder, mixed F3 1.60 [place] [address] [address] 16 Apr, 2017 Bipolar 1 disorder, mixed F3 1.60 [facility] [address] [address] 13 Apr, 2017 Yeast vaginitis B37.3 [place] [address] [address] 09 Apr, 2017 Bipolar 1 disorder, mixed F3 1.60 [facility] [address] [address] 07 Apr, 2017 [address]ulitis L03[address] for immunization Z23 [facility] [address] [address] 02 Apr, 2017 Bipolar 1 disorder, mixed F3 1.60 [facility] [address] [address] Mar, Bipolar 1 disorder, mixed F3 1.60 [place] [address] [address] Mar, Bipolar 1 disorder, mixed F3 1.60 [facility] [address] [place] [address] Mar, Imbalance R26.89 and Encount er for immunization Z23 [place] [address] [place] [address] Mar, Generalized anxiety disorder F41.1 [place] [address] [address] Mar, Bipolar 1 disorder, mixed F3 1.60 [place] [address] [address] Mar, Generalized anxiety disorder F41.1 [place] [address] [place] [id number] Mar, Bipolar 1 disorder, mixed F3 1.60 [place] [address] [address] Mar, Bipolar 1 disorder, mixed F3 1.60 [place] [address] [address] Feb, Bipolar 1 disorder, mixed F3 1.60 [place] [address] [address] Feb, Bipolar 1 disorder, mixed F3 1.60 and Generalized anxiety disorder F41.1 [place] [address] [address] Feb, Gastritis without bleeding, unspecified chronicity, unspecified gastritis type K29.70 ; Hammer toe of right foot M20.41 and Other viral warts B07.8 [place] [address] [address] 20 Feb, 2017 Bipolar 1 disorder, mixed F3 1.60 [place] [address] [address] 13 Feb, 2017 Bipolar 1 disorder, mixed F3 1.60 [place] [address] [address] 05 Feb, 2017 Bipolar 1 disorder, mixed F3 1.60 [facility] [address] [facility] [id number] [address] [place] [id number] 31 Jan, 2017 Encounter for screening mamm ogram for breast cancer Z12.31 ; Other viral warts B07.8 and Allergic rhinitis J30.9 [facility] [address] [facility] [id number] [address] [place] [id number] Jan, Bipolar 1 disorder, mixed F3 1.60 [facility] [address] [facility] [id number] [address] [place] [id number] Jan, Bipolar 1 disorder, mixed F3 1.60 [place] [address] [address] [facility] [id number] [address] [place] [id number] Jan, [place] [address] [address] [facility] [id number] [address] [place] [address] Jan, Bipolar 1 disorder, mixed F3 1.60 [place] [address] [address] [facility] [id number] [address] [place] [address] Jan, Bipolar 1 disorder, mixed F3 1.60 [place] [id number] N [facility] [id number] [address] [place] [address] Jan, Allergic rhinitis J30.9 ; He maturia R31.9 and Colon cancer screening Z12.11 [facility] [address] [facility] [id number] [address] [place] [address] Dec, Bipolar 1 disorder, mixed F3 1.60 [facility] [address] [facility] [id number] [address] [place] [id number] 18 Dec, 2016 Bipolar 1 disorder, mixed F3 1.60 ; Generalized anxiety disorder F41.1 and Other senior care (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 Z79.899 [facility] [address] [facility] [id number] [address] [place] [id number] Dec, Bipolar 1 disorder, mixed F3 1.60 [facility] [address] [place] [id number] [address] [place] [address] Dec, Bipolar 1 disorder, mixed F3 1.60 [facility] [address] [facility] [id number] [address] [place] [id number] Dec, Bipolar 1 disorder, mixed F3 1.60 [facility] [address] [facility] [id number] [address] [place] [address] Dec, Low back pain M54.5 and Recu rrent urinary tract infection N39.0 [facility] [address] [facility] [id number] [address] [place] [address] Nov, Bipolar 1 disorder, mixed F3 1.60 [facility] [address] [facility] [id number] [address] [place] [address] Nov, Bipolar 1 disorder, mixed F3 1.60 [facility] [address] [facility] [id number] [address] [place] [address] Nov, Bipolar 1 disorder, mixed F3 1.60 [facility] [address] [facility] [id number] [address] [place] [id number] Nov, Bipolar 1 disorder, mixed F3 1.60 [facility] [address] [facility] [id number] [address] [place] [address] Nov, [facility] [address] [facility] [id number] [address] [place] [address] Nov, Anesthesia of skin R20.0 ; F requent UTI N39.0 ; Tobacco abuse Z72.0 and Colon cancer screening Z12.11 [facility] [address] [facility] [id number] [address] [place] [address] Nov, Bipolar 1 disorder, mixed F3 1.60 [facility] [address] [facility] [id number] [address] [place] [address] October, Bipolar 1 disorder, mixed F3 1.60 [facility] [address] [facility] [id number] [address] [place] [address] October, Bipolar 1 disorder, mixed F3 1.60 [facility] [address] [facility] [id number] [address] [place] [address] October, Bipolar 1 disorder, mixed F3 1.60 [place] [address] [address] October, Bipolar 1 disorder, mixed F3 1.60 [place] [address] [address] October, Bipolar 1 disorder, mixed F3 1.60 [place] [address] [address] October, Cervicalgia M54.2 and Bipola r 1 disorder, mixed F31.60 [place] [address] [address] October, Hypertension I10 ; Hyperlipi demia, unspecified hyperlipidemia type E78.5 and Family history of thyroid disease Z83.49 [place] [address] [address] October, [place] [address] [address] October, Hypertension I10 ; Hyperlipi demia, unspecified hyperlipidemia type E78.5 and Family history of thyroid problem Z83.49 [place] [address] [address] October, Bipolar 1 disorder, mixed F3 1.60 [place] [address] [address] Sep, Bipolar 1 disorder, mixed F3 1.60 [place] [address] [address] [place] [id number] [place] [address] Sep, Bipolar 1 disorder, mixed F3 1.60 [place] [address] [address] Sep, Bipolar 1 disorder, mixed F3 1.60 [place] [address] [address] Sep, History of colon polyps Z86. 010 and Hematochezia K92.1 [facility] [id number] [place] [address] Sep, Major depressive disorder, r ecurrent episode, moderate F33.1 [facility] [address] [place] [id number] [address] [place] [address] Sep, Bipolar 1 disorder, mixed F3 1.60 [facility] [address] [place] [id number] [address] [place] [address] Aug, Hot flashes due to menopause N95.1 [facility] [address] [place] [id number] [place] [address] Aug, Bipolar 1 disorder, mixed F3 1.60 [facility] [address] [address] Aug, [facility] [address] [address] Aug, Bipolar 1 disorder, mixed F3 1.60 [facility] [address] [address] Aug, Bipolar 1 disorder, mixed F3 1.60 [facility] [address] [place] [id number] [place] [address] Aug, Hot flashes due to menopause N95.1 ; Cervicalgia M54.2 and Ataxia R27.0 [facility] [address] [place] [id number] [address] [place] [address] Jul, Bipolar 1 disorder, mixed F3 1.60 [facility] [address] [place] [id number] [address] [place] [address] Jul, Bipolar 1 disorder, mixed F3 1.60 [facility] [address] [place] [id number] [address] [place] [address] Jul, Bipolar 1 disorder, mixed F3 1.60 [facility] [address] [address] 13 Jul, 2016 Bipolar 1 disorder, mixed F3 1.60 [place] [address] [address] [place] [id number] 10 Jul, 2016 Bipolar 1 disorder, mixed F3 1.60 [place] [address] 08 Jul, 2016 Cervicalgia M54.2 ; Tremor R 25.1 ; Hearing abnormally acute, unspecified laterality H93.239 ; Alopecia L65.9 ; Encounter for immunization Z23 and Family history of thyroid disease Z83.49 [place] [address] 06 Jul, 2016 Bipolar 1 disorder, mixed F3 1.60 [place] [address] [address] [place] [id number] Jun, [place] [address] [address] [place] [address] Jun, Hearing disorder, unspecifie d laterality H93.299 [place] [address] [address] [place] [address]02[address] Jun, Bipolar 1 disorder, mixed F3 1.60 [place] [address] [address] Jun, Bipolar 1 disorder, mixed F3 1.60 [place] [address] [address] Jun, Allergic rhinitis J30.9 [place] [address] [address] Jun, Bipolar 1 disorder, mixed F3 1.60 [place] [address] [address] [place] [id number] Jun, Bipolar 1 disorder, mixed F3 1.60 [place] [address] [address] Jun, Allergic rhinitis J30.9 [facility] [address] [facility] [id number] [address] [place] [address] Jun, Allergic rhinitis J30.9 [facility] [address] [facility] [id number] [address] [place] [address] Jun, Bipolar 1 disorder, mixed F3 1.60 [facility] [address] [facility] [id number] [address] [place] [address] May, Bipolar 1 disorder, mixed F3 1.60 [facility] [address] [id number] [address] [place] [address] May, Bipolar 1 disorder, mixed F3 1.60 [facility] [address] [facility] [id number] [address] [place] [address] May, [facility] [address] [facility] [id number] [address] [place] [address] May, Bipolar 1 disorder, mixed F3 1.60 [facility] [address] [facility] [id number] [address] [place] [address] May, Bipolar 1 disorder, mixed F3 1.60 [facility] [address] [facility] [id number] [address] [place] [address] May, [facility] [address] [facility] [id number] [address] [place] [address] May, [facility] [address] [facility] [id number] [address] [place] [address] May, [facility] [address] [facility] [id number] [address] [place] [address] May, Abdominal pain, unspecified location R10.9 [facility] [address] [facility] [id number] [address] [place] [address] May, [facility] [address] [facility] [id number] [address] [place] [address] Apr, Hematuria R31.9 ; Ataxia R27 .0 and Hearing loss, unspecified laterality H91.90 [facility] [address] [place] [id number] [address] [place] [address] Apr, Bipolar 1 disorder, mixed F3 1.60 [facility] [address] [address] 11 Apr, 2016 Acute effusion of both middl e ears H65.193 [facility] [address] [address] 10 Apr, 2016 Hematuria R31.9 and Pyelonep hritis N12 [facility] [address] [address] Apr, [place] [address] [address] Mar, Bipolar 1 disorder, mixed F3 1.60 [facility] [address] [address] Mar, [facility] [address] [address] Mar, Bipolar 1 disorder, mixed F3 1.60 [place] [address] [address] Mar, Bipolar 1 disorder, mixed F3 1.60 [facility] [address] [address] Mar, Encounter for immunization Z 23 and Gastritis without bleeding, unspecified chronicity, unspecified gastritis type K29.70 [facility] [address] [address] Mar, Bipolar 1 disorder, mixed F3 1.60 and Grief F43.20 [place] [address] [address] Mar, Gastritis without bleeding, unspecified chronicity, unspecified gastritis type K29.70 [place] [address] [address] Mar, Bipolar 1 disorder, mixed F3 1.60 [place] [address] [address] [facility] [id number] [address] [place], [place] [id number] Mar, Gastritis without bleeding, unspecified chronicity, unspecified gastritis type K29.70 [facility] [address] [facility] [id number] [address] [place] [address] Mar, [place] [address] [address] [place] [id number] [address] [place], [place] [id number] Feb, Bipolar 1 disorder, mixed F3 1.60 [place] [address] [address] [place] [id number] [address] [place] [id number] Feb, Bipolar 1 disorder, mixed F3 1.60 and Grief F43.20 [place] [address] [address] [place] [id number] [address] [place] [address] Feb, Gastritis without bleeding, unspecified chronicity, unspecified gastritis type K29.70 [place] [address] [address] [place] [id number] [address] [place] [address] 14 Feb, 2016 Bipolar 1 disorder, mixed F3 1.60 [facility] [address] [place] [id number] [address] [place] [address] Feb, Gastroesophageal reflux dise ase, esophagitis presence not specified K21.9 [facility] [address] [place] [id number] [address] [place] [address] Jan, Bipolar 1 disorder, mixed F3 1.60 [place] [address] [address] [place] [id number] [address] [place] [address] Jan, Bipolar 1 disorder, mixed F3 1.60 and Unsteady gait R26.81 [place] [address] [address] [place] [id number] [address] [place] [address] Jan, Bipolar 1 disorder, mixed F3 1.60 [facility] [address] [place] [id number] [address] [place] [address] Jan, Bipolar 1 disorder, mixed F3 1.60 and Other senior care (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 Z79.899 [facility] [address] [facility] [id number] [address] [place] [address] Jan, Bipolar 1 disorder, mixed F3 1.60 [facility] [address] [facility] [id number] [address] [place] [address] Jan, Bipolar 1 disorder, mixed F3 1.60 [place] [address] [address] [place] [id number] [address] [place] [address] Jan, Bipolar 1 disorder, mixed F3 1.60 ; Grief F43.20 and Other senior care (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 Z79.899 [place] [address] [address] [place] [id number] [address] [place] [address] Jan, Bipolar 1 disorder, mixed F3 1.60 [place] [address] [place] [id number] [address] [place] [address] Dec, [place] [address] [place] [id number] [address] [place] [address] Dec, Bipolar 1 disorder, mixed F3 1.60 ; Vitamin D deficiency, unspecified E55.9 ; H/O allergic rhinitis Z87.09 ; Other chronic pain G89.29 and Dorsalgia, unspecified M54.9 [place] [address] [address] [place] [id number] [address] [place] [address] Dec, [place] [address] [place] [id number] [address] [place] [address] Dec, Bipolar 1 disorder, mixed F3 1.60 [place] [address] [address] [place] [id number] [address] [place] [address] Dec, Major depressive disorder, r ecurrent episode, moderate F33.1 [place] [address] [address] [place] [id number] [address] [place] [address] Dec, Major depressive disorder, r ecurrent episode, moderate F33.1 [place] [address] [place] [id number] [address] [place] [address] Nov, [facility] [address] [facility] [id number] [address] [place] [address] Nov, Bipolar 1 disorder, mixed F3 1.60 [place] [address] [address] [facility] [id number] [address] [place] [address] Nov, Major depressive disorder, r ecurrent episode, moderate F33.1 [place] [address] [place] [id number] [address] [place] [address] Nov, Cervicalgia M54.2 ; Arthralg ia of hip, unspecified laterality M25.559 ; Allergic rhinitis J30.9 and Hormone replacement therapy Z79.890 [facility] [address] [facility] [id number] [address] [place] [address] Nov, Other seasonal allergic rhin itis J30.2 [place] [address] [address] [facility] [id number] [address] [place] [address] October, Major depressive disorder, r ecurrent episode, moderate F33.1 [place] [address] [place] [id number] [address] [place] [address] October, Major depressive disorder, r ecurrent episode, moderate F33.1 and Arthralgia of hip, unspecified laterality M25.559 [place] [address] [address] [place] [id number] [address] [place] [address] October, Grief F43.20 ; Hypertension I10 ; Hyperlipidemia, unspecified hyperlipidemia type E78.5 ; Other chronic pain G89.29 and Allergic rhinitis, unspecified allergic rhinitis type J30.9 [place] [address] [address] [facility] [id number] [address] [place] [address] October, Major depressive disorder, r ecurrent episode, moderate F33.1 [place] [address] [facility] [id number] [address] [place] [address] Sep, Major depressive disorder, r ecurrent episode, moderate F33.1 [place] [address] [place] [id number] [address] [place] [address] Sep, [facility] [address] [facility] [id number] [address] [place] [address] Sep, Major depressive disorder, r ecurrent episode, moderate F33.1 [facility] [address] [facility] [id number] [address] [place] [address] Sep, Grief F43.20 [facility] [address] [place] [id number] [address] [place] [address] Aug, Major depressive disorder, r ecurrent episode, moderate F33.1 [place] [address] [place] [id number] [address] [place] [address] Aug, Bipolar 1 disorder, mixed F3 1.60 [place] [address] [place] [id number] [address] [place] [address] Aug, Allergic rhinitis J30.9 ; Ce rvicalgia M54.2 and Low back pain M54.5 [place] [address] [place] [id number] [address] [place] [address] Aug, Major depressive disorder, r ecurrent episode, moderate F33.1 [facility] [address] [place] [id number] [address] [place] [address] Aug, Sinusitis J32.9 and Tobacco 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 [facility] [address] [place] [id number] [address] [place] [address] Aug, [facility] [address] [place] [address] Aug, Depressive disorder, not els ewhere classified F32.9 ; Hormone replacement therapy Z79.[address] scan, head R93.0 [place] [address] [address] [place] [id number] [address] [place] [address] Aug, Major depressive disorder, r ecurrent episode, moderate F33.1 [facility] [address] [place] [id number] [address] [place] [address] Jul, Major depressive disorder, r ecurrent episode, moderate F33.1 [facility] [address] [facility] [id number] [address] [place] [address] Jul, Abdominal pain R10.9 and Hyp ertension I10 [facility] [address] [facility] [id number] [address] [place] [address] Jul, [facility] [address] [place] [id number] [place] [address] Jul, Major depressive disorder, r ecurrent episode, moderate F33.1 [facility] [address] [facility] [id number] [address] [place] [address] Jul, [facility] [address] [place] [id number] [address] [place] [address] Jul, [facility] [address] [place] [id number] [address] [place] [address] Jun, [facility] [address] [place] [id number] [address] [place] [address] Jun, Depressive disorder, not els ewhere classified F32.9 [facility] [address] [facility] [id number] [address] [place] [address] Jun, [facility] [address] [place] [address] Jun, [facility] [address] [place] [address] Jun, Arthralgia of hip, unspecifi ed laterality M25.559 ; Bruising, spontaneous R23.3 and Night sweats R61 [facility] [address] [facility] [id number] [address] [place] [address] Jun, [facility] [address] [facility] [id number] [address] [place] [address] Jun, [facility] [address] [place] [id number] [address] [place] [address] May, [facility] [address] [facility] [id number] [address] [place] [address] May, Myalgia M79.1 and Screening, lipid Z13.220 [facility] [address] [id number] [address] [place] [address] Apr, Status post cervical spinal fusion Z98.1 ; Fibromyalgia M79.7 and Unsteady gait R26.81 [facility] [address] [id number] [address] [place] [address] Nov, [facility] [address] [id number] [address] [place] [id number] Nov, [facility] [address] [id number] [address] [place] [address] October, [facility] [address] [facility] [id number] [address] [place] [id number] October, [facility] [address] [facility] [id number] [address] [place] [phone] October, [facility] [address] [facility] [id number] [address] [place] [phone] October, [facility] [address] [facility] [id number] [address] [place] [id number] October, [facility] [address] [facility] [id number] [address] [place] [phone] October, Dysuria 788.1 ; Nausea 787.0 2 and Urinary tract infection 599.0 [facility] [address] [facility] [id number] [address] [place] [id number] Sep, [facility] [address] [facility] [id number] [address] [place] [id number] Sep, [facility] [address] [facility] [id number] [address] [place] [id number] Aug, [facility] [address] [facility] [id number] [address] [place] [id number] 25 Aug, 2014 [facility] [address] [id number] [address] [place] [address], [place] [id number] 24 Aug, 2014 [facility] [address] [id number] [address] [place] [address], [place] [id number] 24 Aug, 2014 [facility] [address] [id number] [address] [place] [address], [place] [id number] 23 Aug, 2014 [facility] [address] [id number] [address] [place] [address], [place] [id number] 19 Aug, 2014 [facility] [address] [id number] [address] [place] [address], [place] [id number] 19 Aug, 2014 [facility] [address] [id number] [address] [place] [address], [place] [id number] 19 Aug, 2014 [facility] [address] [id number] [address] [place] [address], [place] [id number] 19 Aug, 2014 [facility] [address] [id number] [address] [place] [address], [place] [id number] 18 Aug, 2014 [facility] [address] [address] [id number] [address] [place] [address], [place] [address] 18 Aug, 2014 [facility] [address] [id number] [address] [place] [address], [place] [address] 13 Aug, 2014 [facility] [address] [id number] [address] [place] [address], [place] [address] 13 Aug, 2014 [facility] [address] [id number] [address] [place] [address], [place] [address] 11 Aug, 2014 [facility] [address] [id number] [address] [place] [address], [place] [address] 11 Aug, 2014 [facility] [address] [id number] [address] [place] [address], [place] [address] 06 Aug, 2014 [facility] [address] [id number] [address] [place] [address], [place] [address] 06 Aug, 2014 [facility] [address] [id number] [address] [place] [address], [place] [address] 05 Aug, 2014 [facility] [address] [id number] [address] [place] [address], [place] [address] 05 Aug, 2014 [facility] [address] [id number] [address] [place] [address], [place] [address] Aug, 2014 [facility] [address] [id number] [address] [place] [address], [place] [address] Aug, 2014 [facility] [address] [id number] [address] [place] [address], [place] [address] Aug, [facility] [address] [id number] [address] [place] [address], [place] [address] Jul, 2014 [facility] [address] [id number] [address] [place] [address], [place] [address] Jul, 2014 [facility] [address] [id number] [address] [place] [address], [place] [address] Jul, 2014 [facility] [address] [id number] [address] [place] [address], [place] [address] Jul, [facility] [address] [id number] [address] [place] [address], [place] [address] Jul, [facility] [address] [id number] [address] [place] [address], [place] [address] Jul, [facility] [address] [id number] [address] [place] [address], [place] [address] Jul, 2014 [facility] [address] [id number] [address] [place] [address], [place] [address] Jul, 2014 [facility] [address] [id number] [address] [place] [address], [place] [address] Jul, 2014 [facility] [address] [id number] [address] [place] [address], [place] [address] Jul, 2014 [facility] [address] [id number] [address] [place] [address], [place] [address] Jul, 2014 [facility] [address] [id number] [address] [place] [address], [place] [address] Jul, 2014 [facility] [address] [id number] [address] [place] [address], [place] [address] Jul, 2014 [facility] [address] [id number] [address] [place] [address], [place] [address] Jul, [facility] [address] [id number] [address] [place] [address], [place] [address] Jun, [facility] [address] [id number] [address] [place] [address], [place] [address] Jun, [facility] [address] [id number] [address] [place] [address], [place] [address] Jun, [facility] [address] [id number] [address] [place] [address], [place] [address] Jun, [facility] [address] [id number] [address] [place] [address], [place] [address] Jun, [facility] [address] [id number] [address] [place] [address], [place] [address] Jun, [facility] [address] [id number] [address] [place] [address], [place] [address] May, [facility] [address] [id number] [address] [place] [address], [place] [address] May, [facility] [address] [id number] [address] [place] [address], [place] [address] May, [facility] [address] [id number] [address] [place] [address], [place] [address] May, [facility] [address] [id number] [address] [place] [address], [place] [address] May, [facility] [address] [id number] [address] [place] [address], [place] [address] May, [facility] [address] [id number] [address] [place] [address], [place] [address] Apr, [facility] [address] [id number] [address] [place] [address], [place] [address] Apr, [facility] [address] [id number] [address] [place] [address], [place] [address] Apr, [facility] [address] [id number] [address] [place] [address], [place] [address] Apr, [facility] [address] [id number] [address] [place] [address], [place] [address] Apr, [facility] [address] [id number] [address] [place] [address], [place] [address] Apr, [facility] [address] [id number] [address] [place] [address], [place] [address] Mar, [facility] [address] [id number] [address] [place] [address], [place] [address] Mar, [facility] [address] [id number] [address] [place] [address], [place] [address] Mar, [facility] [address] [id number] [address] [place] [address] Mar, [facility] [address] [id number] [address] [place] [address] Mar, [facility] [address] [id number] [address] [place] [address] Mar, [facility] [address] [id number] [address] [place] [address] Mar, [facility] [address] [id number] [address] [place] [address] Mar, [facility] [address] [id number] [address] [place] [address] Mar, [facility] [address] [id number] [address] [place] [address] Mar, [facility] [address] [id number] [address] [place] [address], [place] [address] Mar, [facility] [address] [id number] [address] [place] [address], [place] [address] Mar, [facility] [address] [id number] [address] [place] [address], [place] [address] 30 Feb, 2014 [facility] [address] [id number] [address] [place] [address], [place] [address] Feb, [facility] [address] [id number] [address] [place] [address], [place] [address] Feb, [facility] [address] [id number] [address] [place] [address], [place] [address] Feb, [facility] [address] [id number] [address] [place] [address], [place] [address] Feb, [facility] [address] [id number] [address] [place] [address], [place] [address] Feb, [facility] [address] [id number] [address] [place] [address], [place] [address] Feb, [facility] [address] [id number] [address] [place] [address], [place] [address] Jan, [facility] [address] [id number] [address] [place] [address], [place] [address] Jan, [facility] [address] [id number] [address] [place] [address], [place] [address] Jan, [facility] [address] [id number] [address] [place] [address], [place] [address] Dec, [facility] [address] [id number] [address] [place] [address], [place] [address] Dec, [facility] [address] [id number] [address] [place] [address], [place] [address] Dec, [facility] [address] [id number] [address] [place] [address], [place] [address] Dec, [facility] [address] [id number] [address] [place] [address], [place] [address] Sep, [facility] [address] [id number] [address] [place] [address], [place] [address] Sep, [facility] [address] [id number] [address] [place] [address], [place] [address] Sep, [facility] [address] [id number] [address] [place] [address], [place] [address] Sep, [facility] [address] [id number] [address] [place] [address], [place] [address] Sep, [facility] [address] [id number] [address] [place] [address], [place] [address] Sep, [facility] [address] [id number] [address] [place] [address], [place] [address] Sep, [facility] [address] [id number] [address] [place] [address], [place] [address] Sep, [facility] [address] [id number] [address] [place] [address], [place] [address] Aug, [facility] [address] [id number] [address] [place] [address], [place] [address] Aug, [facility] [address] [id number] [address] [place] [address], [place] [address] May, [facility] [address] [id number] [address] [place] [address], [place] [address] May, [facility] [address] [id number] [address] [place] [address], [place] [address] Apr, [facility] [address] [id number] [address] [place] [address], [place] [address] Apr, [facility] [address] [id number] [address] [place] [address], [place] [address] Apr, [facility] [address] [id number] [address] [place] [address], [place] [address] Apr, [facility] [address] [id number] [address] [place] [address], [place] [address] Apr, [facility] [address] [id number] [address] [place] [address], [place] [address] Apr, [facility] [address] [id number] [address] [place] [address], [place] [address] May, [facility] [address] [id number] [address] [place] [address], [place] [address] 18 May, 2012 [facility] [address] [id number] [address] [place] [address], [place] [address] 15 May, 2012 [facility] [address] [id number] [address] [place] [address], [place] [address] May, [facility] [address] [id number] [address] [place] [address], [place] [address] May, [facility] [address] [id number] [address] [place] [address], [place] [address] May, [facility] [address] [id number] [address] [place] [address], [place] [address] Apr, [facility] [address] [id number] [address] [place] [address], [place] [address] Apr, [facility] [address] [id number] [address] [place] [address], [place] [address] Apr, [facility] [address] [id number] [address] [place] [address], [place] [address] Apr, [facility] [address] [id number] [address] [place] [address], [place] [address] Apr, [facility] [address] [id number] [address] [place] [address], [place] [address] Apr, [facility] [address] [id number] [address] [place] [address], [place] [address] 07 Apr, 2012 [facility] [address] [id number] [address] [place] [address], [place] [address] Apr, [facility] [address] [id number] [address] [place] [address], [place] [address] Apr, [facility] [address] [id number] [address] [place] [address], [place] [address] Apr, [facility] [address] [id number] [address] [place] [address], [place] [address] Mar, [facility] [address] [id number] [address] [place] [address], [place] [address] Mar, [facility] [address] [id number] [address] [place] [address], [place] [address] Mar, [facility] [address] [id number] [address] [place] [address], [place] [address] Mar, [facility] [address] [id number] [address] [place] [address], [place] [address] Mar, [facility] [address] [id number] [address] [place] [address], [place] [address] Mar, [facility] [address] [id number] [address] [place] [address], [place] [address] Mar, [facility] [address] [id number] [address] [place] [address], [place] [address] Mar, [facility] [address] [id number] [address] [place] [address], [place] [address] Mar, [facility] [address] [id number] [address] [place] [address], [place] [address] 25 Feb, 2012 [facility] [address] [id number] [address] [place] [address], [place] [address] 16 Sep2011 [facility] [address] [id number] [address] [place] [address], [place] [address] 11 Feb, 2012 [facility] [address] [id number] [facility] [place] [address] Jan, [facility] [address] [id number] [address] [place] [address], [place] [address] Jan, [facility] [address] [id number] [address] [place] [address], [place] [address] Jan, [facility] [address] [id number] [address] [place] [address], [place] [address] Jan, [facility] [address] [id number] [address] [place] [address], [place] [address] Jan, [facility] [address] [id number] [address] [place] [address], [place] [address] Jan, [facility] [address] [id number] [address] [place] [address], [place] [address] Jan, [facility] [address] [id number] [address] [place] [address], [place] [address] Jan, [facility] [address] [id number] [address] [place] [address], [place] [address] Jan, [facility] [address] [id number] [address] [place] [address], [place] [address] Jan, [facility] [address] [id number] [address] [place] [address], [place] [address] Dec, [facility] [address] [id number] [address] [place] [address], [place] [address] Dec, [facility] [address] [id number] [address] [place] [address], [place] [address] Dec, [facility] [address] [id number] [address] [place] [address], [place] [address] Dec, [facility] [address] [id number] [address] [place] [address], [place] [address] Nov, [facility] [address] [id number] [address] [place] [address], [place] [address] 08 Nov, 2011 [facility] [address] [id number] [address] [place] [address] Nov, [facility] [address] [id number] [address] [place] [address] October, [facility] [address] [id number] [address] [place] [address] October, [facility] [address] [id number] [address] [place] [address] October, [facility] [address] [id number] [address] [place] [address] October, [facility] [address] [id number] [address] [place] [address] October, [facility] [address] [id number] [address] [place] [address] October, [facility] [address] [id number] [address] [place] [address] Aug, [facility] [address] [id number] [address] [place] [address] Mar, [facility] [address] [id number] [address] [place] [address] Nov, [facility] [address] [id number] [address] [place] [address] May, [facility] [address] [id number] [address] [place] [address] May, [facility] [address] [id number] [address] [place] [address] Apr, [facility] [address] [id number] [address] [place] [address] Mar, [facility] [address] [id number] [address] [place] [address] Mar, IMMUNIZATIONS No Known Immunizations SOCIAL HISTORY [...]
--- OUTSIDE RECORDS SUMMARY | 2019-06-19 05:10 | XMS REPORT ---
Author Author Sydnie SQUIRES Organization [facility] Address [address] [place] [address] Care Team Providers Care Welder Fitter Gas Name Role Phone MIRIAN SQUIRES Unavailable PROBLEMS Type Condition ICD9-CM Code GCQ27-OM Code Onset Dates Condition S tatus SNOMED Code Problem Age-related osteoporosis without current pathological fracture M81.0 Active 94885765 Problem Sensorineural hearing loss (SNHL) of both ears H90 .3 Active 864276236 Problem Abnormal CT scan, head R93.0 Active 781210675 Problem Arthralgia of hip, unspecified laterality M25.559 Active 94900482 Problem Bruising, spontaneous R23.3 Active 948041573 Problem Hypertension I10 Active 6139957 3 Problem Night sweats R61 Active 6629923 0 Problem Imbalance R26.89 Active 787288584 Problem Hammer toe of right foot M20.41 Activ e 595809288 Problem Hormone replacement therapy Z79.890 Ac tive 702635329 Problem Bipolar 1 disorder, mixed F31.60 Acti ve 29435169 Problem Gastritis without bleeding, unspecified chronicity, unspecified gastritis type K29.70 Active 498339429 Problem Ataxia R27.0 Active 49031178 Problem Hearing loss, unspecified laterality H91.90 Active 84389117 Problem History of colon polyps Z86.010 Active 878006113 Problem Allergic rhinitis J30.9 Active 61 685322 Problem Hematuria, unspecified type R31.9 Ac tive 13723337 Problem Generalized anxiety disorder F41.1 A ctive 52673848 Problem Major depressive disorder, recurrent episode, moderate F33.1 Active 447478690 Problem Fibromyalgia M79.7 Active 5839612 7 Problem Bladder spasm N32.89 Active 347486 006 Problem Tobacco use disorder F17.200 Active 746385052 Problem Other chronic pain G89.29 Active 8 3123579 Problem Post menopausal syndrome N95.1 Activ e 816410814 Problem Grief F43.20 Active 48640938 Problem Hyperlipidemia, unspecified hyperlipidemia type E7 8.5 Active 87314144 Problem Acute left-sided low back pain with left-sided sciatica M54.42 Active 221242165 Problem Sciatica of left side M54.32 Active 11057200 Problem Plantar wart of right foot B07.0 Act mitchell [id number] Problem Slow transit constipation K59.01 Acti ve 39380660 ALLERGIES Substance Reaction Event Type Date Status Morphine Sulfate Unknown Drug Allergy Aug, Active Iodine Unknown Drug Allergy Aug, Active Lyrica 75 Mg Capsule "felt weird" Non Drug Allergy Aug, Act mitchell ENCOUNTERS Encounter Location Date Diagnosis [facility] [address] [address] Jan, [facility] [address] [place] [id number] [place] [address] Dec, [facility] [address] [address] Dec, [facility] [address] [place] [id number] [place] [address] Dec, Bipolar 1 disorder, mixed F3 1.60 [place] [address] [place] [id number] [place] [address] Nov, Bipolar 1 disorder, mixed F3 1.60 [facility] [address] [place] [place] [id number] [place] [address] Nov, Bipolar 1 disorder, mixed F3 1.60 ; Generalized anxiety disorder F41.1 ; Tobacco use disorder F17.200 and 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 [facility] [address] [place] [id number] [place] [address] Nov, [facility] [address] [place] [id number] [place] [address] Nov, Bipolar 1 disorder, mixed F3 1.60 [facility] [address] [place] [id number] [place] [address] October, Bipolar 1 disorder, mixed F3 1.60 [facility] [address] [facility] [id number] [address] [place] [address] October, Bipolar 1 disorder, mixed F3 1.60 [facility] [address] [facility] [id number] [address] [place] [address] October, [facility] [address] [place] [id number] [place] [address] October, Bipolar 1 disorder, mixed F3 1.60 ; Generalized anxiety disorder F41.1 and Tobacco use disorder F17.200 [facility] [address] [place] [id number] [place] [address] Sep, [place] [address] [place] [id number] [place] [address] Sep, Encounter for [facility] exam Z00.00 ; Major depressive disorder, recurrent episode, moderate F33.1 ; Allergic rhinitis J30.9 ; Bipolar 1 disorder, mixed F31.60 ; Fibromyalgia M79.7 ; Hyperlipidemia, unspecified hyperlipidemia type E78.5 ; Hormone replacement therapy Z79.890 ; Encounter for screening for lung cancer Z12.2 and Tobacco use disorder F17.200 [place] [address] [place] [id number] [place] [address] Sep, Bipolar 1 disorder, mixed F3 1.60 [facility] [address] [place] [id number] [place] [address] Sep, Other chronic pain G89.29 ; Hyperlipidemia, unspecified hyperlipidemia type E78.5 ; Breast cancer screening Z12.31 and Post menopausal syndrome N95.1 [facility] [address] [facility] [id number] [address] [place] [address] Sep, Bipolar 1 disorder, mixed F3 1.60 [facility] [address] [facility] [id number] [address] [place] [address] Sep, Bipolar 1 disorder, mixed F3 1.60 ; Generalized anxiety disorder F41.1 and Tobacco use disorder F17.200 [place] [address] [facility] [id number] [address] [place] [address] Sep, Gastritis without bleeding, unspecified chronicity, unspecified gastritis type K29.70 [place] [address] [facility] [id number] [address] [place] [address] 08 Sep, 2018 Exercise counseling Z71.82 [place] [address] [place] [address] Aug, Exercise counseling Z71.82 [place] [address] [place] [id number] [place] [address] Aug, Bipolar 1 disorder, mixed F3 1.60 [place] [address] [place] [id number] [place] [address] Aug, Exercise counseling Z71.82 [place] [address] [place] [id number] [place] [address] Aug, Bipolar 1 disorder, mixed F3 1.60 [place] [address] [place] [address] Aug, Gastritis without bleeding, unspecified chronicity, unspecified gastritis type K29.70 ; Tobacco abuse Z72.0 ; Generalized anxiety disorder F41.1 and Weight gain R63.5 [place] [address] [place] [address] Aug, Bipolar 1 disorder, mixed F3 1.60 ; Generalized anxiety disorder F41.1 and Tobacco use disorder F17.200 [place] [address] [place] [id number] [place] [address] Jul, Bipolar 1 disorder, mixed F3 1.60 [place] [address] [place] [id number] [place] [address] Jul, [place] [address] [place] [id number] [place] [address] Jul, Bipolar 1 disorder, mixed F3 1.60 [place] [address] [place] [address] [place] [address] Jul, Allergic rhinitis J30.9 ; Ma darion depressive disorder, recurrent episode, moderate F33.1 and Tobacco 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 [facility] [address] [facility] [id number] [address] [place] [address] Jun, [facility] [address] [place] [id number] [place] [address] Jun, [place] [address] [place] [id number] [place] [address] Jun, Bipolar 1 disorder, mixed F3 1.60 [place] [address] [place] [address] Jun, Bipolar 1 disorder, mixed F3 1.60 [place] [address] [place] [id number] [place] [address] Jun, Bipolar 1 disorder, mixed F3 1.60 [place] [address] [place] [id number] [place] [address] Jun, Generalized anxiety disorder F41.1 ; Tobacco abuse Z72.0 and Major depressive disorder, recurrent episode, moderate F33.1 [place] [address] [place] [id number] [place] [address] May, Bipolar 1 disorder, mixed F3 1.60 [place] [address] [place] [id number] [place] [address] May, Bipolar 1 disorder, mixed F3 1.60 and Generalized anxiety disorder F41.1 [place] [address] [place] [id number] [place] [address] May, Bipolar 1 disorder, mixed F3 1.60 [place] [address] [place] [id number] [place] [address] May, Allergic rhinitis J30.9 [place] [address] [place] [id number] [place] [address] May, Bipolar 1 disorder, mixed F3 1.60 [facility] [address] [place] [id number] [place] [address] May, [facility] [address] [place] [id number] [place] [address] Apr, Allergic rhinitis J30.9 ; Dy sfunction of both eustachian tubes H69.83 ; History of bladder surgery Z98.890 and Cervicalgia M54.2 [facility] [address] [place] [id number] [place] [address] Mar, Bipolar 1 disorder, mixed F3 1.60 [place] [address] [place] [id number] [place] [address] Mar, [place] [address] [place] [id number] [place] [address] Mar, Slow transit constipation K5 9.01 ; Encounter for immunization Z23 and Generalized anxiety disorder F41.1 [facility] [address] [place] [id number] [place] [address] 27 Feb, 2018 Bipolar 1 disorder, mixed F3 1.60 [place] [address] [place] [id number] [place] [address] 26 Feb, 2018 Allergic rhinitis J30.9 [facility] [address] [place] [id number] [place] [address] 24 Feb, 2018 Bipolar 1 disorder, mixed F3 1.60 [facility] [address] [place] [id number] [place] [address] 20 Feb, 2018 Bipolar 1 disorder, mixed F3 1.60 and Generalized anxiety disorder F41.1 [facility] [address] [place] [id number] [place] [address] 13 Feb, 2018 Bipolar 1 disorder, mixed F3 1.60 [facility] [address] [facility] [id number] [address] [place] [address] 11 Feb, 2018 Allergic rhinitis J30.9 [facility] [address] [place] [id number] [place], [place] [id number] Feb, [facility] [address] [facility] [id number] [address] [place] [address] Jan, Bipolar 1 disorder, mixed F3 1.60 [facility] [address] [facility] [id number] [address] [place] [address] Jan, Low back pain M54.5 ; Hyperl ipidemia, unspecified hyperlipidemia type E78.5 and Bipolar 1 disorder, mixed F31.60 [facility] [address] [facility] [id number] [address] [place] [address] Jan, Bipolar 1 disorder, mixed F3 1.60 [place] [address] [facility] [id number] [address] [place] [address] Jan, Bipolar 1 disorder, mixed F3 1.60 [place] [address] [place] [id number] [place] [address] Jan, Bipolar 1 disorder, mixed F3 1.60 [place] [address] [facility] [id number] [address] [place] [address] Jan, Bipolar 1 disorder, mixed F3 1.60 [place] [address] [facility] [id number] [address] [place] [address] Dec, Bipolar 1 disorder, mixed F3 1.60 ; Generalized anxiety disorder F41.1 and 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 [place] [address] [facility] [id number] [address] [place] [address] Dec, Other long-term (current) 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 Z79.899 [facility] [address] [facility] [id number] [address] [place] [address] Dec, Bipolar 1 disorder, mixed F3 1.60 [facility] [address] [facility] [id number] [address] [place] [address] Dec, Bipolar 1 disorder, mixed F3 1.60 [place] [address] [facility] [id number] [address] [place] [address] Nov, Bipolar 1 disorder, mixed F3 1.60 [facility] [address] [facility] [id number] [address] [place] [address] Nov, Bipolar 1 disorder, mixed F3 1.60 [facility] [address] [facility] [id number] [address] [place] [address] Nov, Bipolar 1 disorder, mixed F3 1.60 [facility] [address] [place] [id number] [place] [address] Nov, Allergic rhinitis J30.9 [facility] [address] [facility] [id number] [address] [place] [address] Nov, Allergic rhinitis J30.9 [place] [address] [facility] [id number] [address] [place] [address] Nov, [place] [address] [place] [id number] [place] [address] Nov, Bipolar 1 disorder, mixed F3 1.60 [place] [address] [place] [id number] [place] [address] Nov, Fibromyalgia M79.7 and Aller gic rhinitis J30.9 [place] [address] [place] [id number] [place] [address] October, Bipolar 1 disorder, mixed F3 1.60 [facility] [address] [place] [id number] [place] [address] October, Acute nasopharyngitis J00 [facility] [address] [place] [id number] [place] [address] October, Bitten or stung by nonvenomo us insect and other nonvenomous arthropods, initial encounter W57.XXXA and Insect bite (nonvenomous) of abdominal wall, initial encounter S30.861A [facility] [address] [place] [id number] [place] [address] October, Insect bite (nonvenomous) of abdominal wall, initial encounter S30.861A ; Bitten or stung by nonvenomous insect and other nonvenomous arthropods, initial encounter W57.XXXA ; Allergic rhinitis J30.9 and Low back pain M54.5 [facility] [address] [facility] [id number] [address] [place] [address] October, Bipolar 1 disorder, mixed F3 1.60 [facility] [address] [place] [id number] [place] [address] October, [facility] [address] [facility] [id number] [address] [place] [address] October, [facility] [address] [place] [id number] [place] [address] October, Bipolar 1 disorder, mixed F3 1.60 [facility] [address] [place] [id number] [place] [address] Sep, Bipolar 1 disorder, mixed F3 1.60 [facility] [address] [place] [id number] [place] [address] Sep, Other chronic pain G89.29 [facility] [address] [place] [id number] [place] [address] Sep, [facility] [address] [place] [id number] [place] [address] Sep, Bipolar 1 disorder, mixed F3 1.60 [facility] [address] [place] [id number] [place] [address] Sep, Allergic rhinitis J30.9 and Sciatica of left side M54.32 [facility] [address] [facility] [id number] [address] [place] [address] Sep, Bipolar 1 disorder, mixed F3 1.60 [facility] [address] [place] [id number] [place] [address] Sep, Bipolar 1 disorder, mixed F3 1.60 and Generalized anxiety disorder F41.1 [facility] [address] [facility] [id number] [address] [place] [address] Aug, [facility] [address] [facility] [id number] [address] [place] [address] Aug, Bipolar 1 disorder, mixed F3 1.60 [facility] [address] [facility] [id number] [address] [place] [address] Aug, Bipolar 1 disorder, mixed F3 1.60 [facility] [address] [facility] [id number] [address] [place] [address] Aug, [facility] [address] [facility] [id number] [address] [place] [address] Aug, Generalized anxiety disorder F41.1 [facility] [address] [facility] [id number] [address] [place] [address] Aug, Bipolar 1 disorder, mixed F3 1.60 [facility] [address] [facility] [id number] [address] [place] [address] Aug, Plantar wart of right foot B 07.0 [facility] [address] [facility] [id number] [address] [place] [address] Aug, Bipolar 1 disorder, mixed F3 1.60 [facility] [address] [facility] [id number] [address] [place] [address] Jul, Bipolar 1 disorder, mixed F3 1.60 [facility] [address] [facility] [id number] [address] [place] [address] Jul, [facility] [address] [facility] [id number] [address] [place] [address] 14 Jul, 2017 Bipolar 1 disorder, mixed F3 1.60 [facility] [address] [facility] [id number] [address] [place] [address] 09 Jul, 2017 Generalized anxiety disorder F41.1 [facility] [address] [facility] [id number] [address] [place] [address] 07 Jul, 2017 Bipolar 1 disorder, mixed F3 1.60 [facility] [address] [place] [id number] [address] [place] [address] 07 Jul, 2017 Acute left-sided low back pa in with left-sided sciatica M54.42 [place] [address] [facility] [id number] [address] [place] [address] 05 Jul, 2017 Coccydynia M53.3 [place] [address] [place] [id number] [address] [place] [address] Jun, Bipolar 1 disorder, mixed F3 1.60 [facility] [address] [place] [id number] [address] [place] [address] Jun, Acute nasopharyngitis J00 [place] [address] [place] [id number] [address] [place] [address] Jun, Bipolar 1 disorder, mixed F3 1.60 [place] [address] [place] [address] Jun, Fibromyalgia M79.7 [place] [address] [place] [id number] [address] [place] [address] Jun, Bipolar 1 disorder, mixed F3 1.60 [place] [address] [place] [id number] [address] [place] [address] Jun, Fibromyalgia M79.7 and Bipol ar 1 disorder, mixed F31.60 [place] [address] [place] [id number] [address] [place] [address] May, Bipolar 1 disorder, mixed F3 1.60 ; Generalized anxiety disorder F41.1 and 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 [place] [address] [place] [id number] [address] [place] [address] May, Bipolar 1 disorder, mixed F3 1.60 [facility] [address] [place] [id number] [address] [place] [address] 14 May, 2017 Cough R05 and Body aches R52 [facility] [address] [place] [id number] [place], [place] [id number] 10 May, 2017 Bladder spasm N32.89 and Acu te cystitis without hematuria N30.00 [facility] [address] 07 May, 2017 Bipolar 1 disorder, mixed F3 1.60 [facility] [address] 30 Apr, 2017 [place] [address] Apr, Major depressive disorder, r ecurrent episode, moderate F33.1 and Encounter for immunization Z23 [place] [address] Apr, Bipolar 1 disorder, mixed F3 1.60 [place] [address] [address] Apr, Bipolar 1 disorder, mixed F3 1.60 [place] [address] [address] 16 Apr, 2017 Bipolar 1 disorder, mixed F3 1.60 [place] [address] [place] [address] 13 Apr, 2017 Yeast vaginitis B37.3 [place] [address] [address] 09 Apr, 2017 Bipolar 1 disorder, mixed F3 1.60 [facility] [address] [address] 07 Apr, 2017 [address]ulitis [address]03[address] for immunization Z23 [facility] [address] [place] [id number] 02 Apr, 2017 Bipolar 1 disorder, mixed F3 1.60 [facility] [address] [address] Mar, Bipolar 1 disorder, mixed F3 1.60 [place] [address] [address] Mar, Bipolar 1 disorder, mixed F3 1.60 [place] [address] [address] Mar, Imbalance R26.[address] for immunization Z23 [place] [address] [address] Mar, Generalized anxiety disorder F41.1 [place] [address] [address] Mar, Bipolar 1 disorder, mixed F3 1.60 [place] [address] [address] Mar, Generalized anxiety disorder F41.1 [place] [address] [address] Mar, Bipolar 1 disorder, mixed F3 1.60 [place] [address] [address] Mar, Bipolar 1 disorder, mixed F3 1.60 [place] [address] [address] Feb, Bipolar 1 disorder, mixed F3 1.60 [place] [address] [address] Feb, Bipolar 1 disorder, mixed F3 1.60 and Generalized anxiety disorder F41.1 [place] [address] [address] Feb, Gastritis without bleeding, unspecified chronicity, unspecified gastritis type K29.70 ; Hammer toe of right foot M20.41 and Other viral warts B07.8 [place] [address] [address] Feb, Bipolar 1 disorder, mixed F3 1.60 [place] [address] [address] Feb, Bipolar 1 disorder, mixed F3 1.60 [facility] [address] [facility] [id number] [address] [place] [id number] 05 Feb, 2017 Bipolar 1 disorder, mixed F3 1.60 [facility] [address] [place] [id number] [address] [place] [id number] 31 Jan, 2017 Encounter for screening mamm ogram for breast cancer Z12.31 ; Other viral warts B07.8 and Allergic rhinitis J30.9 [facility] [address] [facility] [id number] [address] [place] [address] Jan, Bipolar 1 disorder, mixed F3 1.60 [place] [address] [place] [id number] [address] [place] [id number] Jan, Bipolar 1 disorder, mixed F3 1.60 [place] [address] [place] [id number] [address] [place] [address] 14 Jan, 2017 [place] [address] [place] [id number] [address] [place] [address] Jan, Bipolar 1 disorder, mixed F3 1.60 [place] [address] [place] [id number] [address] [place] [id number] 04 Jan, 2017 Bipolar 1 disorder, mixed F3 1.60 [place] [address] [place] [id number] [address] [place] [address] 02 Jan, 2017 Allergic rhinitis J30.9 ; He maturia R31.9 and Colon cancer screening Z12.11 [place] [address] [place] [id number] [address] [place] [address] Dec, Bipolar 1 disorder, mixed F3 1.60 [place] [address] [place] [id number] [address] [place] [address] 18 Dec, 2016 Bipolar 1 disorder, mixed F3 1.60 ; Generalized anxiety disorder F41.1 and Other long-term (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 Z79.899 [place] [address] [place] [id number] [address] [place] [address] Dec, Bipolar 1 disorder, mixed F3 1.60 [facility] [address] [facility] [id number] [address] [place] [address] Dec, Bipolar 1 disorder, mixed F3 1.60 [facility] [address] [facility] [id number] [address] [place] [address] Dec, Bipolar 1 disorder, mixed F3 1.60 [facility] [address] [facility] [id number] [address] [place] [id number] Dec, Low back pain M54.5 and Recu rrent urinary tract infection N39.0 [facility] [address] [facility] [id number] [address] [place] [address] Nov, Bipolar 1 disorder, mixed F3 1.60 [facility] [address] [facility] [id number] [address] [place] [address] Nov, Bipolar 1 disorder, mixed F3 1.60 [facility] [address] [facility] [id number] [address] [place] [id number] Nov, Bipolar 1 disorder, mixed F3 1.60 [facility] [address] [facility] [id number] [address] [place] [id number] Nov, Bipolar 1 disorder, mixed F3 1.60 [facility] [address] [facility] [id number] [address] [place] [address] Nov, [facility] [address] [facility] [id number] [address] [place] [address] Nov, Anesthesia of skin R20.0 ; F requent UTI N39.0 ; Tobacco abuse Z72.0 and Colon cancer screening Z12.11 [facility] [address] [facility] [id number] [address] [place] [id number] Nov, Bipolar 1 disorder, mixed F3 1.60 [facility] [address] [facility] [id number] [address] [place] [address] October, Bipolar 1 disorder, mixed F3 1.60 [facility] [address] [address] October, Bipolar 1 disorder, mixed F3 1.60 [facility] [address] [address] October, Bipolar 1 disorder, mixed F3 1.60 [facility] [address] [address] October, Bipolar 1 disorder, mixed F3 1.60 [facility] [address] [address] October, Bipolar 1 disorder, mixed F3 1.60 [place] [address] [address] October, Cervicalgia M54.2 and Bipola r 1 disorder, mixed F31.60 [place] [address] [address] October, Hypertension I10 ; Hyperlipi demia, unspecified hyperlipidemia type E78.5 and Family history of thyroid disease Z83.49 [place] [address] [address] October, [place] [address] [address] October, Hypertension I10 ; Hyperlipi demia, unspecified hyperlipidemia type E78.5 and Family history of thyroid problem Z83.49 [place] [address] [address] October, Bipolar 1 disorder, mixed F3 1.60 [place] [address] [address] Sep, Bipolar 1 disorder, mixed F3 1.60 [place] [address] [address] Sep, Bipolar 1 disorder, mixed F3 1.60 [place] [address] [address] Sep, Bipolar 1 disorder, mixed F3 1.60 [facility] [address] [facility] [id number] [address] [place] [address] Sep, History of colon polyps Z86. 010 and Hematochezia K92.1 [facility] [address] [place] [id number] [address] [place] [address] Sep, Major depressive disorder, r ecurrent episode, moderate F33.1 [facility] [address] [place] [id number] [address] [place] [address] Sep, Bipolar 1 disorder, mixed F3 1.60 [facility] [address] [place] [id number] [place] [address] Aug, Hot flashes due to menopause N95.1 [facility] [address] [place] [id number] [address] [place] [address] Aug, Bipolar 1 disorder, mixed F3 1.60 [facility] [address] [place] [id number] [address] [place] [id number] Aug, [facility] [address] [place] [id number] [address] [place] [address] Aug, Bipolar 1 disorder, mixed F3 1.60 [facility] [address] [place] [id number] [address] [place] [address] Aug, Bipolar 1 disorder, mixed F3 1.60 [facility] [address] [place] [id number] [address] [place] [address] Aug, Hot flashes due to menopause N95.1 ; Cervicalgia M54.2 and Ataxia R27.0 [facility] [address] [place] [id number] [address] [place] [address] Jul, Bipolar 1 disorder, mixed F3 1.60 [facility] [address] [place] [id number] [address] [place] [address] Jul, Bipolar 1 disorder, mixed F3 1.60 [facility] [address] [address] 20 Jul, 2016 Bipolar 1 disorder, mixed F3 1.60 [place] [address] [place] [id number] 13 Jul, 2016 Bipolar 1 disorder, mixed F3 1.60 [place] [address] [place] [address] 10 Jul, 2016 Bipolar 1 disorder, mixed F3 1.60 [place] [address] [place] [id number] 08 Jul, 2016 Cervicalgia M54.2 ; Tremor R 25.1 ; Hearing abnormally acute, unspecified laterality H93.239 ; Alopecia L65.9 ; Encounter for immunization Z23 and Family history of thyroid disease Z83.49 [place] [address] [place] 20[address]82[address] Jul, Bipolar 1 disorder, mixed F3 1.60 [place] [address] [address] Jun, [place] [address] [place] 203682[address] Jun, Hearing disorder, unspecifie d laterality H93.299 [place] [address] [address] Jun, Bipolar 1 disorder, mixed F3 1.60 [place] [address] [address] Jun, Bipolar 1 disorder, mixed F3 1.60 [place] [address] [address] Jun, Allergic rhinitis J30.9 [place] [address] [place] 203682[address] Jun, Bipolar 1 disorder, mixed F3 1.60 [place] [address] [address] Jun, Bipolar 1 disorder, mixed F3 1.60 [facility] [address] [id number] [address] [place] [address] Jun, Allergic rhinitis J30.9 [facility] [address] [facility] [id number] [address] [place] [address] Jun, Allergic rhinitis J30.9 [facility] [address] [facility] [id number] [address] [place] [address] Jun, Bipolar 1 disorder, mixed F3 1.60 [facility] [address] [id number] [address] [place] [address] May, Bipolar 1 disorder, mixed F3 1.60 [facility] [address] [facility] [id number] [address] [place] [address] May, Bipolar 1 disorder, mixed F3 1.60 [facility] [address] [facility] [id number] [address] [place] [address] May, [facility] [address] [id number] [address] [place] [address] May, Bipolar 1 disorder, mixed F3 1.60 [facility] [address] [facility] [id number] [address] [place] [address] May, Bipolar 1 disorder, mixed F3 1.60 [facility] [address] [facility] [id number] [address] [place] [address] May, [facility] [address] [facility] [id number] [address] [place] [address] May, [facility] [address] [facility] [id number] [address] [place] [address] May, [facility] [address] [facility] [id number] [address] [place] [address] May, Abdominal pain, unspecified location R10.9 [facility] [address] [facility] [id number] [address] [place] [address] May, [facility] [address] [address] Apr, Hematuria R31.9 ; Ataxia R27 .0 and Hearing loss, unspecified laterality H91.90 [facility] [address] [address] Apr, Bipolar 1 disorder, mixed F3 1.60 [facility] [address] [address] Apr, Acute effusion of both middl e ears H65.193 [place] [address] [address] Apr, Hematuria R31.9 and Pyelonep hritis N12 [facility] [address] [address] Apr, [place] [address] [address] Mar, Bipolar 1 disorder, mixed F3 1.60 [facility] [address] [address] Mar, [place] [address] [address] Mar, Bipolar 1 disorder, mixed F3 1.60 [place] [address] [address] Mar, Bipolar 1 disorder, mixed F3 1.60 [facility] [address] [address] Mar, Encounter for immunization Z 23 and Gastritis without bleeding, unspecified chronicity, unspecified gastritis type K29.70 [place] [address] [address] Mar, Bipolar 1 disorder, mixed F3 1.60 and Grief F43.20 [place] [address] [address] Mar, Gastritis without bleeding, unspecified chronicity, unspecified gastritis type K29.70 [place] [address] [place] [id number] [address] [place] [address] Mar, Bipolar 1 disorder, mixed F3 1.60 [place] [address] [place] [id number] [address] [place] [address] Mar, Gastritis without bleeding, unspecified chronicity, unspecified gastritis type K29.70 [place] [address] [place] [id number] [address] [place] [address] Mar, [place] [address] [place] [id number] [place] [address] Feb, Bipolar 1 disorder, mixed F3 1.60 [place] [address] [place] [id number] [place] [address] Feb, Bipolar 1 disorder, mixed F3 1.60 and Grief F43.20 [place] [address] [place] [id number] [address] [place] [address] Feb, Gastritis without bleeding, unspecified chronicity, unspecified gastritis type K29.70 [place] [address] [place] [id number] [address] [place] [address] 14 Feb, 2016 Bipolar 1 disorder, mixed F3 1.60 [facility] [address] [place] [id number] [address] [place] [address] Feb, Gastroesophageal reflux dise ase, esophagitis presence not specified K21.9 [place] [address] [place] [id number] [address] [place] [address] Jan, Bipolar 1 disorder, mixed F3 1.60 [place] [address] [place] [id number] [address] [place] [address] Jan, Bipolar 1 disorder, mixed F3 1.60 and Unsteady gait R26.81 [place] [address] [place] [id number] [address] [place] [address] Jan, Bipolar 1 disorder, mixed F3 1.60 [place] [address] [id number] [address] [place] [address] Jan, Bipolar 1 disorder, mixed F3 1.60 and Other long-term (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 Z79.899 [facility] [address] [facility] [id number] [address] [place] [address] Jan, Bipolar 1 disorder, mixed F3 1.60 [place] [address] [facility] [id number] [address] [place] [address] Jan, Bipolar 1 disorder, mixed F3 1.60 [place] [address] [facility] [id number] [address] [place] [address] Jan, Bipolar 1 disorder, mixed F3 1.60 ; Grief F43.20 and 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 [place] [address] [facility] [id number] [address] [place] [address] Jan, Bipolar 1 disorder, mixed F3 1.60 [place] [address] [facility] [id number] [address] [place] [address] Dec, [place] [address] [facility] [id number] [address] [place] [address] Dec, Bipolar 1 disorder, mixed F3 1.60 ; Vitamin D deficiency, unspecified E55.9 ; H/O allergic rhinitis Z87.09 ; Other chronic pain G89.29 and Dorsalgia, unspecified M54.9 [place] [address] [facility] [id number] [address] [place] [address] Dec, [place] [address] [facility] [id number] [address] [place] [address] Dec, Bipolar 1 disorder, mixed F3 1.60 [place] [address] [facility] [id number] [address] [place] [address] Dec, Major depressive disorder, r ecurrent episode, moderate F33.1 [place] [address] [place] [id number] [address] [place] [address] Dec, Major depressive disorder, r ecurrent episode, moderate F33.1 [facility] [address] [facility] [id number] [address] [place] [address] Nov, [facility] [address] [facility] [id number] [address] [place] [address] Nov, Bipolar 1 disorder, mixed F3 1.60 [place] [address] [facility] [id number] [address] [place] [address] Nov, Major depressive disorder, r ecurrent episode, moderate F33.1 [place] [address] [facility] [id number] [address] [place] [address] Nov, Cervicalgia M54.2 ; Arthralg ia of hip, unspecified laterality M25.559 ; Allergic rhinitis J30.9 and Hormone replacement therapy Z79.890 [facility] [address] [facility] [id number] [address] [place] [address] Nov, Other seasonal allergic rhin itis J30.2 [place] [address] [facility] [id number] [address] [place] [address] October, Major depressive disorder, r ecurrent episode, moderate F33.1 [place] [address] [place] [id number] [address] [place] [address] October, Major depressive disorder, r ecurrent episode, moderate F33.1 and Arthralgia of hip, unspecified laterality M25.559 [place] [id number] [place] [address] October, Grief F43.20 ; Hypertension I10 ; Hyperlipidemia, unspecified hyperlipidemia type E78.5 ; Other chronic pain G89.29 and Allergic rhinitis, unspecified allergic rhinitis type J30.9 [facility] [address] [facility] [id number] [address] [place] [address] October, Major depressive disorder, r ecurrent episode, moderate F33.1 [place] [address] [place] [id number] [address] [place] [address] Sep, Major depressive disorder, r ecurrent episode, moderate F33.1 [facility] [address] [id number] [address] [place] [address] Sep, [facility] [address] [facility] [id number] [address] [place] [address] Sep, Major depressive disorder, r ecurrent episode, moderate F33.1 [facility] [address] [facility] [id number] [address] [place] [address] Sep, Grief F43.20 [facility] [address] [facility] [id number] [address] [place] [address] Aug, Major depressive disorder, r ecurrent episode, moderate F33.1 [place] [address] [facility] [id number] [address] [place] [address] Aug, Bipolar 1 disorder, mixed F3 1.60 [place] [address] [facility] [id number] [address] [place] [address] Aug, Allergic rhinitis J30.9 ; Ce rvicalgia M54.2 and Low back pain M54.5 [place] [address] [facility] [id number] [address] [place] [address] Aug, Major depressive disorder, r ecurrent episode, moderate F33.1 [facility] [address] [facility] [id number] [address] [place] [address] Aug, Sinusitis J32.9 and Tobacco 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 [facility] [address] [facility] [id number] [address] [place] [address] Aug, [facility] [address] [facility] [id number] [address] [place] [address] Aug, Depressive disorder, not els ewhere classified F32.9 ; Hormone replacement therapy Z79.[address] scan, head R93.0 [place] [address] [facility] [id number] [address] [place] [address] Aug, Major depressive disorder, r ecurrent episode, moderate F33.1 [facility] [address] [id number] [address] [place] [address] Jul, Major depressive disorder, r ecurrent episode, moderate F33.1 [facility] [address] [id number] [address] [place] [address] Jul, Abdominal pain R10.9 and Hyp ertension I10 [facility] [address] [id number] [address] [place] [address] Jul, [facility] [address] [facility] [id number] [address] [place] [address] Jul, Major depressive disorder, r ecurrent episode, moderate F33.1 [facility] [address] [id number] [address] [place] [address] Jul, [facility] [address] [facility] [id number] [address] [place] [address] Jul, [facility] [address] [facility] [id number] [address] [place] [address] Jun, [facility] [address] [facility] [id number] [address] [place] [address] Jun, Depressive disorder, not els ewhere classified F32.9 [facility] [address] [facility] [id number] [address] [place] [address] Jun, [facility] [address] [facility] [id number] [address] [place] [id number] Jun, [facility] [address] [facility] [id number] [address] [place] [address] Jun, Arthralgia of hip, unspecifi ed laterality M25.559 ; Bruising, spontaneous R23.3 and Night sweats R61 [facility] [address] [facility] [id number] [address] [place] [address] Jun, [facility] [address] [facility] [id number] [address] [place] [address] Jun, [facility] [address] [facility] [id number] [address] [place] [address] May, [facility] [address] [facility] [id number] [address] [place] [address] May, Myalgia M79.1 and Screening, lipid Z13.220 [facility] [address] [facility] [id number] [address] [place] [address] Apr, Status post cervical spinal fusion Z98.1 ; Fibromyalgia M79.7 and Unsteady gait R26.81 [facility] [address] [facility] [id number] [address] [place] [address] Nov, [facility] [address] [facility] [id number] [address] [place] [address] Nov, [facility] [address] [place] [id number] [address] [place] [id number] October, [facility] [address] [facility] [id number] [address] [place] [address] October, [facility] [address] [place] [id number] [address] [place] [address] October, [facility] [address] [place] [id number] [address] [place] [id number] October, [facility] [address] [facility] [id number] [address] [place] [id number] October, [facility] [address] [facility] [id number] [address] [place] [id number] October, Dysuria 788.1 ; Nausea 787.0 2 and Urinary tract infection 599.0 [facility] [address] [facility] [id number] [address] [place] [id number] 14 Sep, 2014 [facility] [address] [facility] [id number] [address] [place] [id number] Sep, [facility] [address] [id number] [facility] [place] [id number] 25 Aug, 2014 [facility] [address] [id number] [facility] [place] [id number] 25 Aug, 2014 [facility] [address] [id number] [facility] [place] [id number] 24 Aug, 2014 [facility] [address] [id number] [address] [place] [address], [place] [id number] 24 Aug, 2014 [facility] [address] [id number] [facility] [place] [address] 23 Aug, 2014 [facility] [address] [id number] [address] [place] [address], [place] [id number] 19 Aug, 2014 [facility] [address] [id number] [address] [place] [address], [place] [id number] 19 Aug, 2014 [facility] [address] [id number] [address] [place] [address], [place] [id number] 19 Aug, 2014 [facility] [address] [address] [id number] [address] [place] [address], [place] [address] 19 Aug, 2014 [facility] [address] [id number] [address] [place] [address], [place] [address] 18 Aug, 2014 [facility] [address] [id number] [address] [place] [address], [place] [address] 18 Aug, 2014 [facility] [address] [id number] [address] [place] [address], [place] [address] 13 Aug, 2014 [facility] [address] [id number] [address] [place] [address], [place] [address] 13 Aug, 2014 [facility] [address] [id number] [address] [place] [address], [place] [address] 11 Aug, 2014 [facility] [address] [id number] [address] [place] [address], [place] [address] 11 Aug, 2014 [facility] [address] [id number] [address] [place] [address], [place] [address] Aug, [facility] [address] [id number] [address] [place] [address], [place] [address] Aug, [facility] [address] [id number] [address] [place] [address], [place] [address] Aug, 2014 [facility] [address] [id number] [address] [place] [address], [place] [address] Aug, [facility] [address] [id number] [address] [place] [address], [place] [address] Aug, [facility] [address] [id number] [address] [place] [address], [place] [address] Aug, [facility] [address] [id number] [address] [place] [address], [place] [address] Aug, [facility] [address] [id number] [address] [place] [address], [place] [address] Jul, 2014 [facility] [address] [id number] [address] [place] [address], [place] [address] Jul, 2014 [facility] [address] [id number] [address] [place] [address], [place] [address] Jul, 2014 [facility] [address] [id number] [address] [place] [address], [place] [address] Jul, 2014 [facility] [address] [id number] [address] [place] [address], [place] [address] Jul, 2014 [facility] [address] [id number] [address] [place] [address], [place] [address] Jul, 2014 [facility] [address] [id number] [address] [place] [address], [place] [address] Jul, 2014 [facility] [address] [id number] [address] [place] [address], [place] [address] Jul, 2014 [facility] [address] [id number] [address] [place] [address], [place] [address] Jul, 2014 [facility] [address] [id number] [address] [place] [address], [place] [address] Jul, 2014 [facility] [address] [id number] [address] [place] [address], [place] [address] Jul, 2014 [facility] [address] [id number] [address] [place] [address], [place] [address] Jul, 2014 [facility] [address] [id number] [address] [place] [address], [place] [address] Jul, [facility] [address] [id number] [address] [place] [address], [place] [address] Jul, [facility] [address] [id number] [address] [place] [address], [place] [address] Jun, [facility] [address] [id number] [address] [place] [address], [place] [address] Jun, [facility] [address] [id number] [address] [place] [address], [place] [address] Jun, [facility] [address] [id number] [address] [place] [address], [place] [address] Jun, [facility] [address] [id number] [address] [place] [address], [place] [address] Jun, [facility] [address] [id number] [address] [place] [address], [place] [address] Jun, [facility] [address] [id number] [address] [place] [address] May, [facility] [address] [id number] [address] [place] [address], [place] [address] May, [facility] [address] [id number] [address] [place] [address], [place] [address] May, [facility] [address] [id number] [address] [place] [address], [place] [address] May, [facility] [address] [id number] [address] [place] [address] May, [facility] [address] [id number] [address] [place] [address], [place] [address] May, [facility] [address] [id number] [address] [place] [address] Apr, [facility] [address] [id number] [address] [place] [address], [place] [address] Apr, [facility] [address] [id number] [address] [place] [address] Apr, [facility] [address] [id number] [address] [place] [address], [place] [address] Apr, [facility] [address] [id number] [address] [place] [address], [place] [address] Apr, [facility] [address] [id number] [address] [place] [address], [place] [address] Apr, [facility] [address] [id number] [address] [place] [address], [place] [address] Mar, [facility] [address] [id number] [address] [place] [address] Mar, [facility] [address] [id number] [address] [place] [address] Mar, [facility] [address] [id number] [address] [place] [address] Mar, [facility] [address] [id number] [address] [place] [address] Mar, [facility] [address] [id number] [address] [place] [address] Mar, [facility] [address] [id number] [address] [place] [address] Mar, [facility] [address] [id number] [address] [place] [address] Mar, [facility] [address] [id number] [address] [place] [address], [place] [address] Mar, [facility] [address] [id number] [address] [place] [address], [place] [address] Mar, [facility] [address] [id number] [address] [place] [address], [place] [address] Mar, [facility] [address] [id number] [address] [place] [address], [place] [address] Mar, [facility] [address] [id number] [address] [place] [address], [place] [address] 30 Feb, 2014 [facility] [address] [id number] [address] [place] [address], [place] [address] 29 Feb, 2014 [facility] [address] [id number] [address] [place] [address], [place] [address] 29 Feb, 2014 [facility] [address] [id number] [address] [place] [address], [place] [address] Feb, 2013 [facility] [address] [id number] [address] [place] [address], [place] [address] Feb, [facility] [address] [id number] [address] [place] [address], [place] [address] Feb, [facility] [address] [id number] [address] [place] [address], [place] [address] Feb, [facility] [address] [id number] [address] [place] [address], [place] [address] Jan, [facility] [address] [id number] [address] [place] [address], [place] [address] Jan, [facility] [address] [id number] [address] [place] [address], [place] [address] Jan, [facility] [address] [id number] [address] [place] [address], [place] [address] Dec, [facility] [address] [id number] [address] [place] [address], [place] [address] Dec, [facility] [address] [id number] [facility] [place] [address] Dec, [facility] [address] [id number] [address] [place] [address], [place] [address] Dec, [facility] [address] [id number] [address] [place] [address], [place] [address] Sep, [facility] [address] [id number] [address] [place] [address], [place] [address] Sep, [facility] [address] [id number] [address] [place] [address], [place] [address] Sep, [facility] [address] [id number] [address] [place] [address], [place] [address] Sep, [facility] [address] [id number] [address] [place] [address], [place] [address] Sep, [facility] [address] [id number] [address] [place] [address], [place] [address] Sep, [facility] [address] [id number] [address] [place] [address], [place] [address] Sep, [facility] [address] [id number] [address] [place] [address], [place] [address] Sep, [facility] [address] [id number] [address] [place] [address], [place] [address] Aug, [facility] [address] [id number] [address] [place] [address], [place] [address] Aug, [facility] [address] [id number] [address] [place] [address], [place] [address] May, [facility] [address] [id number] [address] [place] [address], [place] [address] May, [facility] [address] [id number] [address] [place] [address], [place] [address] Apr, [facility] [address] [id number] [address] [place] [address], [place] [address] Apr, [facility] [address] [id number] [address] [place] [address], [place] [address] Apr, [facility] [address] [id number] [address] [place] [address], [place] [address] Apr, [facility] [address] [id number] [address] [place] [address], [place] [address] Apr, [facility] [address] [id number] [address] [place] [address], [place] [address] Apr, [facility] [address] [id number] [address] [place] [address], [place] [address] May, [facility] [address] [id number] [address] [place] [address], [place] [address] May, [facility] [address] [id number] [address] [place] [address], [place] [address] May, [facility] [address] [id number] [address] [place] [address], [place] [address] May, [facility] [address] [id number] [address] [place] [address], [place] [address] May, [facility] [address] [id number] [address] [place] [address], [place] [address] May, [facility] [address] [id number] [address] [place] [address], [place] [address] Apr, [facility] [address] [id number] [address] [place] [address], [place] [address] Apr, [facility] [address] [id number] [address] [place] [address], [place] [address] Apr, [facility] [address] [id number] [address] [place] [address], [place] [address] Apr, [facility] [address] [id number] [address] [place] [address], [place] [address] Apr, [facility] [address] [id number] [address] [place] [address], [place] [address] 08 Apr, 2012 [facility] [address] [id number] [address] [place] [address], [place] [address] 07 Apr, 2012 [facility] [address] [id number] [address] [place] [address], [place] [address] Apr, [facility] [address] [id number] [address] [place] [address], [place] [address] Apr, [facility] [address] [id number] [address] [place] [address], [place] [address] Apr, [facility] [address] [id number] [address] [place] [address], [place] [address] Mar, [facility] [address] [id number] [address] [place] [address], [place] [address] Mar, [facility] [address] [id number] [address] [place] [address], [place] [address] Mar, [facility] [address] [id number] [address] [place] [address], [place] [address] Mar, [facility] [address] [id number] [address] [place] [address], [place] [address] Mar, [facility] [address] [id number] [address] [place] [address], [place] [address] Mar, [facility] [address] [id number] [address] [place] [address], [place] [address] Mar, [facility] [address] [id number] [address] [place] [address], [place] [address] Mar, [facility] [address] [id number] [address] [place] [address], [place] [address] Mar, [facility] [address] [id number] [address] [place] [address] Feb, [facility] [address] [id number] [address] [place] [address] 16 Feb, 2012 [facility] [address] [id number] [address] [place] [address], [place] [address] 11 Feb, 2012 [facility] [address] [id number] [address] [place] [address], [place] [address] Jan, [facility] [address] [id number] [address] [place] [address], [place] [address] Jan, [facility] [address] [id number] [address] [place] [address], [place] [address] Jan, [facility] [address] [id number] [address] [place] [address], [place] [address] Jan, [facility] [address] [id number] [address] [place] [address], [place] [address] Jan, [facility] [address] [id number] [address] [place] [address], [place] [address] Jan, [facility] [address] [id number] [address] [place] [address], [place] [address] Jan, [facility] [address] [id number] [address] [place] [address], [place] [address] Jan, [facility] [address] [id number] [address] [place] [address], [place] [address] Jan, [facility] [address] [id number] [address] [place] [address], [place] [address] Jan, [facility] [address] [id number] [address] [place] [address], [place] [address] Dec, [facility] [address] [id number] [address] [place] [address], [place] [address] Dec, [facility] [address] [id number] [address] [place] [address], [place] [address] Dec, [facility] [address] [id number] [address] [place] [address], [place] [address] Dec, [facility] [address] [id number] [address] [place] [address], [place] [address] 11 Nov, 2011 [facility] [address] [id number] [address] [place] [address], [place] [address] 08 Nov, 2011 [facility] [address] [id number] [address] [place] [address], [place] [address] 07 Nov, 2011 [facility] [address] [id number] [address] [place] [address], [place] [address] October, [facility] [address] [id number] [address] [place] [address], [place] [address] October, [facility] [address] [id number] [address] [place] [address], [place] [address] October, [facility] [address] [id number] [address] [place] [address], [place] [address] October, [facility] [address] [id number] [address] [place] [address], [place] [address] October, [facility] [address] [id number] [address] [place] [address], [place] [address] October, [facility] [address] [id number] [address] [place] [address], [place] [address] Aug, [facility] [address] [id number] [address] [place] [address], [place] [address] Mar, [facility] [address] [id number] [address] [place] [address], [place] [address] Nov, [facility] [address] [id number] [address] [place] [address], [place] [address] May, [facility] [address] [id number] [address] [place] [address], [place] [address] 06 May, [address] [facility] [address] [id number] [address] [place] [address], [place] [address] Apr, [facility] [address] [id number] [address] [place] [address], [place] [address] Mar, [facility] [address] [facility] [id number] [address] [place] [address] Mar, IMMUNIZATIONS No Known Immunizations SOCIAL HISTORY Never Assessed REASON FOR VISIT f/u-Nazia ACEVEDO PLAN OF CARE Activity Details Follow Up 4 Weeks Reason: f/u VITAL SIGNS Height 64 in 2018-08-29 Weight 166.3 lbs 2018-08-29 Heart Rate 98 bpm 2018-08-29 Respiratory Rate 20 2018-08-29 BMI 28.54 kg/m2 2018-08-29 Blood pressure systolic 148 mmHg 2018-08-29 Blood pressure diastolic 72 mmHg 2018-08-29 MEDICATIONS Medication Instructions Dosage Frequency Start Date End Date Duration S tatus Fetzima 120 mg Orally Once a day TAKE 1 CAPSULE BY MOUTH DAILY 24h 30 days Active HydrOXYzine HCl 10 mg Orally 3 times a day as needed 1 tablet 11 Feb, 2018 30 days Active BuPROPion HCl ER (XL) 150 MG Orally Once a day in the morning 1 tab let Aug, 30 day(s) Active Probiotic Active Orally Once a day 1 capsule 24h Not -Taking Lidocaine-Prilocaine 2.5-2.5 % Not-Taking Xyzal Allergy 24HR 5 MG Orally Once a day 1 tablet in the evening 24h 30 day(s) Active Ibuprofen Active Baclofen 20 mg Orally 2 times a day 1 tablet with food or milk 12h 30 Active Mucinex 600 MG Orally every 12 hrs 1 tablet as needed 12h Not-Taking Vagifem Active Doxylamine Succinate (Sleep) 25 MG Orally at bedtime 1 tablet Aug, 30 day(s) Active Gabapentin 100 MG by oral route 2 times a day 2 tabs in e afternoon and three at night 12h Active Depakote ER 500 mg Orally at bedtime 2 tabs 30 days Active Mometasone Furoate 50 MCG/ACT Nasally twice a day 1 sprays in each nostril 12h Apr, 30 day(s) Active Vitamin D3 2000 UNIT Orally Once a day as directed 24h Dec, Active Nicoderm CQ 21 MG/24HR Transdermal Once a day 1 patch to skin 24h Jun, 30 day(s) Not-Taking Pantoprazole Sodium 20 MG TAKE 1 TABLET BY MOUTH ONCE DAILY 90 Active Tylenol Arthritis Pain N ot-Taking Voltaren 1 % Transdermal 4 times a day on neck Active Estradiol 2 MG Orally Once a day 1 tablet 24h Active RESULTS No Results PROCEDURES Procedure Date Ordered Result Body Site [facility] VISIT ESTABLISHED PATIENT August 29, 2018 INSTRUCTIONS MEDICATIONS ADMINISTERED No Known Medications MEDICAL (GENERAL) HISTORY Type Description Date Medical History Severe spinal stenosis throu keesha cervical spine CT and MRI done 10/2014 [...]
--- OUTSIDE RECORDS SUMMARY | 2019-06-19 05:11 | XMS REPORT ---
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 Name Role Phone NAHOMY HANCOCK Unavailable PROBLEMS Type Condition ICD9-CM Code IVB26-MW Code Onset Dates Condition S tatus SNOMED Code Problem Age-related osteoporosis without current pathological fracture M81.0 Active 45305459 Problem Sensorineural hearing loss (SNHL) of both ears H90 .3 Active 679025639 Problem Ab[address] CT scan, head R93.0 Active 278737048 Problem Arthralgia of hip, unspecified laterality M25.559 Active 80325136 Problem Bruising, spontaneous R23.3 Active 141231783 Problem Hypertension I10 Active 5096584 3 Problem Night sweats R61 Active 6860015 0 Problem Imbalance R26.89 Active 646337674 Problem Hammer toe of right foot M20.41 Activ e 636465103 Problem Hormone replacement therapy Z79.890 Ac tive 418458682 Problem Bipolar 1 disorder, mixed F31.60 Acti ve 11868851 Problem Gastritis without bleeding, unspecified chronicity, unspecified gastritis type K29.70 Active 297820932 Problem Ataxia R27.0 Active 44465311 Problem Hearing loss, unspecified laterality H91.90 Active 43632977 Problem History of colon polyps Z86.010 Active 149063551 Problem Allergic rhinitis J30.9 Active 61 488725 Problem Hematuria, unspecified type R31.9 Ac tive 65378934 Problem Generalized anxiety disorder F41.1 A ctive 08302233 Problem Major depressive disorder, recurrent episode, moderate F33.1 Active 068892569 Problem Fibromyalgia M79.7 Active 8864994 7 Problem Bladder spasm N32.89 Active 665480 006 Problem Tobacco use disorder F17.200 Active 563965488 Problem Other chronic pain G89.29 Active 8 8445354 Problem Post menopausal syndrome N95.1 Activ e 533082122 Problem Grief F43.20 Active 71546524 Problem Hyperlipidemia, unspecified hyperlipidemia type E7 8.5 Active 29751495 Problem Acute left-sided low back pain with left-sided sciatica M54.42 Active 092812288 Problem Sciatica of left side M54.32 Active 20435320 Problem Plantar wart of right foot B07.0 Act mitchell [id number] Problem Slow transit constipation K59.01 Acti ve [id number] ALLERGIES No Information ENCOUNTERS Encounter Location Date Diagnosis [place] [address] [place] [id number] [place] [address] Jan, [facility] [address] [address] Dec, [place] [address] [address] Dec, [place] [address] [address] Dec, Bipolar 1 disorder, mixed F3 1.60 [place] [address] [place] [id number] [place] [address] Nov, Bipolar 1 disorder, mixed F3 1.60 [place] [address] [address] Nov, Bipolar 1 disorder, mixed F3 1.60 ; Generalized anxiety disorder F41.1 ; Tobacco use disorder F17.200 and Other assisted (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 Z79.899 [place] [address] [place] [id number] [place] [address] Nov, [facility] [address] [place] [id number] [place] [address] Nov, Bipolar 1 disorder, mixed F3 1.60 [place] [address] [place] [id number] [place] [address] October, Bipolar 1 disorder, mixed F3 1.60 [place] [address] [address] October, Bipolar 1 disorder, mixed F3 1.60 [place] [address] [place] [address] October, [place] [address] [place] [address] October, Bipolar 1 disorder, mixed F3 1.60 ; Generalized anxiety disorder F41.1 and Tobacco use disorder F17.200 [place] [address] [place] [address] Sep, [place] [address] [place] [id number] [place] [address] Sep, Encounter for [facility] wellness exam Z00.00 ; Major depressive disorder, recurrent episode, moderate F33.1 ; Allergic rhinitis J30.9 ; Bipolar 1 disorder, mixed F31.60 ; Fibromyalgia M79.7 ; Hyperlipidemia, unspecified hyperlipidemia type E78.5 ; Hormone replacement therapy Z79.890 ; Encounter for screening for lung cancer Z12.2 and Tobacco use disorder F17.200 [place] [address] [place] [address] Sep, Bipolar 1 disorder, mixed F3 1.60 [place] [address] [place] [id number] [place] [address] Sep, Other chronic pain G89.29 ; Hyperlipidemia, unspecified hyperlipidemia type E78.5 ; Breast cancer screening Z12.31 and Post menopausal syndrome N95.1 [place] [address] [place] [id number] [place] [address] Sep, Bipolar 1 disorder, mixed F3 1.60 [place] [address] [place] [id number] [place] [address] Sep, Bipolar 1 disorder, mixed F3 1.60 ; Generalized anxiety disorder F41.1 and Tobacco use disorder F17.200 [place] [address] [place] [id number] [place] [address] Sep, Gastritis without bleeding, unspecified chronicity, unspecified gastritis type K29.70 [place] [address] [facility] [id number] [address] [place] [address] 08 Sep, 2018 Exercise counseling Z71.82 [place] [address] [facility] [id number] [address] [place] [address] Aug, Exercise counseling Z71.82 [place] [address] [facility] [id number] [address] [place] [address] Aug, Bipolar 1 disorder, mixed F3 1.60 [place] [address] [facility] [place] [id number] [address] [place] [address] Aug, Exercise counseling Z71.82 [place] [address] [place] [id number] [place] [address] Aug, Bipolar 1 disorder, mixed F3 1.60 [place] [address] [place] [id number] [place] [address] Aug, Gastritis without bleeding, unspecified chronicity, unspecified gastritis type K29.70 ; Tobacco abuse Z72.0 ; Generalized anxiety disorder F41.1 and Weight gain R63.5 [place] [address] [place] [id number] [place] [address] Aug, Bipolar 1 disorder, mixed F3 1.60 ; Generalized anxiety disorder F41.1 and Tobacco use disorder F17.200 [place] [address] [place] [id number] [place] [address] Jul, Bipolar 1 disorder, mixed F3 1.60 [place] [address] [facility] [place] [id number] [address] [place] [address] Jul, [place] [address] [place] [id number] [place] [address] Jul, Bipolar 1 disorder, mixed F3 1.60 [place] [address] [place] [id number] [place] [address] 11 Jul, 2018 Allergic rhinitis J30.9 ; Ma darion depressive disorder, recurrent episode, moderate F33.1 and Tobacco 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 [facility] [address] [facility] [place] [id number] [address] [place] [address] Jun, [facility] [address] [facility] [place] [id number] [address] [place] [address] Jun, [facility] [address] [facility] [place] [id number] [address] [place] [address] Jun, Bipolar 1 disorder, mixed F3 1.60 [facility] [address] [facility] [place] [id number] [address] [place] [address] Jun, Bipolar 1 disorder, mixed F3 1.60 [facility] [address] [facility] [place] [id number] [address] [place] [address] Jun, Bipolar 1 disorder, mixed F3 1.60 [facility] [address] [facility] [place] [id number] [address] [place] [address] Jun, Generalized anxiety disorder F41.1 ; Tobacco abuse Z72.0 and Major depressive disorder, recurrent episode, moderate F33.1 [facility] [address] [facility] [place] [id number] [address] [place] [address] May, Bipolar 1 disorder, mixed F3 1.60 [facility] [address] [facility] [place] [id number] [address] [place] [address] May, Bipolar 1 disorder, mixed F3 1.60 and Generalized anxiety disorder F41.1 [facility] [address] [facility] [place] [id number] [address] [place] [address] May, Bipolar 1 disorder, mixed F3 1.60 [facility] [address] [facility] [place] [id number] [address] [place] [address] May, Allergic rhinitis J30.9 [facility] [address] [facility] [place] [id number] [address] [place] [address] May, Bipolar 1 disorder, mixed F3 1.60 [facility] [address] [facility] [place] [id number] [address] [place] [address] May, [facility] [address] [place] [id number] [place] [address] Apr, Allergic rhinitis J30.9 ; Dy sfunction of both eustachian tubes H69.83 ; History of bladder surgery Z98.890 and Cervicalgia M54.2 [facility] [address] [place] [id number] [place] [address] Mar, Bipolar 1 disorder, mixed F3 1.60 [place] [address] [place] [id number] [place] [address] Mar, [place] [address] [address] Mar, Slow transit constipation K5 9.01 ; Encounter for immunization Z23 and Generalized anxiety disorder F41.1 [place] [address] [place] [id number] [place] [address] 27 Feb, 2018 Bipolar 1 disorder, mixed F3 1.60 [place] [address] [place] [id number] [place] [address] 26 Feb, 2018 Allergic rhinitis J30.9 [place] [address] [place] [id number] [place] [address] 24 Feb, 2018 Bipolar 1 disorder, mixed F3 1.60 [place] [address] [place] [id number] [place] [address] 20 Feb, 2018 Bipolar 1 disorder, mixed F3 1.60 and Generalized anxiety disorder F41.1 [place] [address] [place] [id number] [place] [address] 13 Feb, 2018 Bipolar 1 disorder, mixed F3 1.60 [place] [address] [place] [id number] [place] [address] 11 Feb, 2018 Allergic rhinitis J30.9 [facility] [address] [place] [id number] [place] [address] 05 Feb, 2018 [place] [address] [place] [id number] [place] [address] Jan, Bipolar 1 disorder, mixed F3 1.60 [facility] [address] [facility] [id number] [address] [place] [address] Jan, Low back pain M54.5 ; Hyperl ipidemia, unspecified hyperlipidemia type E78.5 and Bipolar 1 disorder, mixed F31.60 [facility] [address] [facility] [place] [id number] [address] [place] [address] Jan, Bipolar 1 disorder, mixed F3 1.60 [facility] [address] [facility] [place] [id number] [address] [place] [address] Jan, Bipolar 1 disorder, mixed F3 1.60 [place] [address] [place] [id number] [place] [address] Jan, Bipolar 1 disorder, mixed F3 1.60 [place] [address] [place] [id number] [place] [address] Jan, Bipolar 1 disorder, mixed F3 1.60 [facility] [address] [place] [id number] [place] [address] Dec, Bipolar 1 disorder, mixed F3 1.60 ; Generalized anxiety disorder F41.1 and 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 Z79.899 [place] [address] [place] [id number] [place] [address] Dec, Other assisted (current) dr ug therapy Z79.899 [facility] [address] [facility] [id number] [address] [place] [address] Dec, Bipolar 1 disorder, mixed F3 1.60 [place] [address] [facility] [id number] [address] [place] [address] Dec, Bipolar 1 disorder, mixed F3 1.60 [facility] [address] [place] [id number] [place] [address] Nov, Bipolar 1 disorder, mixed F3 1.60 [place] [address] [facility] [id number] [address] [place] [address] Nov, Bipolar 1 disorder, mixed F3 1.60 [facility] [address] [place] [id number] [place] [address] Nov, Bipolar 1 disorder, mixed F3 1.60 [facility] [address] [facility] [id number] [address] [place] [address] 11 Nov, 2017 Allergic rhinitis J30.9 [facility] [address] [place] [id number] [place] [address] Nov, Allergic rhinitis J30.9 [facility] [address] [place] [id number] [place] [address] Nov, [facility] [address] [address] Nov, Bipolar 1 disorder, mixed F3 1.60 [place] [address] [address] Nov, Fibromyalgia M79.7 and Aller gic rhinitis J30.9 [facility] [address] [place] [address] October, Bipolar 1 disorder, mixed F3 1.60 [facility] [address] [place] [id number] [place] [address] October, Acute nasopharyngitis J00 [facility]ALK IN [facility] [address] [address] October, Bitten or stung by nonvenomo us insect and other nonvenomous arthropods, initial encounter W57.XXXA and Insect bite (nonvenomous) of abdominal wall, initial encounter S30.861A [place] [address] [place] [id number] [place] [address] October, Insect bite (nonvenomous) of abdominal wall, initial encounter S30.861A ; Bitten or stung by nonvenomous insect and other nonvenomous arthropods, initial encounter W57.XXXA ; Allergic rhinitis J30.9 and Low back pain M54.5 [facility] [address] [id number] [address] [place] [address] October, Bipolar 1 disorder, mixed F3 1.60 [facility] [address] [id number] [address] [place] [address] October, [facility] [address] [id number] [address] [place] [address] October, [facility] [address] [id number] [address] [place] [address] October, Bipolar 1 disorder, mixed F3 1.60 [facility] [address] [id number] [address] [place] [address] Sep, Bipolar 1 disorder, mixed F3 1.60 [facility] [address] [id number] [address] [place] [address] Sep, Other chronic pain G89.29 [facility] [address] [id number] [address] [place] [address] Sep, [facility] [address] [id number] [address] [place] [address] Sep, Bipolar 1 disorder, mixed F3 1.60 [facility] [address] [facility] [id number] [address] [place] [address] Sep, Allergic rhinitis J30.9 and Sciatica of left side M54.32 [facility] [address] [id number] [address] [place] [address] Sep, Bipolar 1 disorder, mixed F3 1.60 [facility] [address] [id number] [address] [place] [address] Sep, Bipolar 1 disorder, mixed F3 1.60 and Generalized anxiety disorder F41.1 [facility] [address] [id number] [address] [place] [address] Aug, [facility] [address] [facility] [id number] [address] [place] [address] Aug, Bipolar 1 disorder, mixed F3 1.60 [facility] [address] [id number] [address] [place] [address] Aug, Bipolar 1 disorder, mixed F3 1.60 [facility] [address] [facility] [place] [id number] [address] [place] [address] Aug, [facility] [address] [facility] [place] [id number] [address] [place] [address] Aug, Generalized anxiety disorder F41.1 [facility] [address] [id number] [address] [place] [address] Aug, Bipolar 1 disorder, mixed F3 1.60 [facility] [address] [facility] [id number] [address] [place] [address] Aug, Plantar wart of right foot B 07.0 [facility] [address] [facility] [id number] [address] [place] [address] Aug, Bipolar 1 disorder, mixed F3 1.60 [facility] [address] [facility] [id number] [address] [place] [address] Jul, Bipolar 1 disorder, mixed F3 1.60 [facility] [address] [facility] [id number] [address] [place] [address] Jul, [facility] [address] [facility] [id number] [address] [place] [address] 14 Jul, 2017 Bipolar 1 disorder, mixed F3 1.60 [facility] [address] [facility] [id number] [address] [place] [address] Jul, Generalized anxiety disorder F41.1 [facility] [address] [facility] [id number] [address] [place] [address] Jul, Bipolar 1 disorder, mixed F3 1.60 [facility] [address] [facility] [id number] [address] [place] [address] Jul, Acute left-sided low back pa in with left-sided sciatica M54.42 [place] [address] [place] [address] 05 Jul, 2017 Coccydynia M53.3 [place] [address] [place] [id number] [place] [address] Jun, Bipolar 1 disorder, mixed F3 1.60 [facility] [place] [address] [place] [address] Jun, Acute nasopharyngitis J00 [place] [address] [place] [id number] [place] [address] Jun, Bipolar 1 disorder, mixed F3 1.60 [place] [address] [address] Jun, Fibromyalgia M79.7 [place] [address] [address] Jun, Bipolar 1 disorder, mixed F3 1.60 [place] [address] [address] Jun, Fibromyalgia M79.7 and Bipol ar 1 disorder, mixed F31.60 [place] [address] [address] May, Bipolar 1 disorder, mixed F3 1.60 ; Generalized anxiety disorder F41.1 and Other assisted (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 Z79.899 [place] [address] [place] [address] May, Bipolar 1 disorder, mixed F3 1.60 [facility] N [address] [place] [address] 14 May, 2017 Cough R05 and Body aches R52 [facility] [place] [address] [place] [id number] [place] [address] 10 May, 2017 Bladder spasm N32.89 [address] te cystitis without hematuria N30.00 [place] [address] [address] 07 May, 2017 Bipolar 1 disorder, mixed F3 1.60 [facility] [address] [place] [address] 30 Apr, 2017 [facility] [address] [address] Apr, Major depressive disorder, r ecurrent episode, moderate F33.1 and Encounter for immunization Z23 [facility] [address] [address] 29 Apr, 2017 Bipolar 1 disorder, mixed F3 1.60 [place] [address] [place] [address] Apr, Bipolar 1 disorder, mixed F3 1.60 [place] [address] [address] 16 Apr, 2017 Bipolar 1 disorder, mixed F3 1.60 [facility] [address] [address] 13 Apr, 2017 Yeast vaginitis B37.3 [place] [address] [address] 09 Apr, 2017 Bipolar 1 disorder, mixed F3 1.60 [facility] [address] [address] 07 Apr, 2017 [address]03[address] for immunization Z23 [facility] [address] [address] 02 Apr, 2017 Bipolar 1 disorder, mixed F3 1.60 [facility] [address] [address] Mar, Bipolar 1 disorder, mixed F3 1.60 [place] [address] [address] Mar, Bipolar 1 disorder, mixed F3 1.60 [facility] [address] [place] [address] Mar, Imbalance R26.[address] for immunization Z23 [place] [address] [address] [place] [id number] Mar, Generalized anxiety disorder F41.1 [place] [address] [address] Mar, Bipolar 1 disorder, mixed F3 1.60 [place] [address] [address] Mar, Generalized anxiety disorder F41.1 [place] [address] [place] [id number] Mar, Bipolar 1 disorder, mixed F3 1.60 [place] [address] [address] Mar, Bipolar 1 disorder, mixed F3 1.60 [place] [address] [address] Feb, Bipolar 1 disorder, mixed F3 1.60 [place] [address] [address] Feb, Bipolar 1 disorder, mixed F3 1.60 and Generalized anxiety disorder F41.1 [place] [address] [address] Feb, Gastritis without bleeding, unspecified chronicity, unspecified gastritis type K29.70 ; Hammer toe of right foot M20.41 and Other viral warts B07.8 [place] [address] [address] 20 Feb, 2017 Bipolar 1 disorder, mixed F3 1.60 [place] [address] [address] 13 Feb, 2017 Bipolar 1 disorder, mixed F3 1.60 [place] [address] [address] 05 Feb, 2017 Bipolar 1 disorder, mixed F3 1.60 [facility] [address] [facility] [place] [id number] [address] [place] [address] 31 Jan, 2017 Encounter for screening mamm ogram for breast cancer Z12.31 ; Other viral warts B07.8 and Allergic rhinitis J30.9 [facility] [address] [facility] [place] [id number] [address] [place] [address] Jan, Bipolar 1 disorder, mixed F3 1.60 [facility] [address] [facility] [place] [facility] [id number] [address] [place] [address] Jan, Bipolar 1 disorder, mixed F3 1.60 [place] [address] [address] [facility] [place] [facility] [id number] [address] [place] [address] Jan, [place] [address] [address] [facility] [place] [id number] [address] [place] [address] Jan, Bipolar 1 disorder, mixed F3 1.60 [place] [address] [address] [facility] [place] [id number] [address] [place] [address] Jan, Bipolar 1 disorder, mixed F3 1.60 [place] [address] [facility] [place] [id number] [address] [place] [address] Jan, Allergic rhinitis J30.9 ; He maturia R31.9 and Colon cancer screening Z12.11 [facility] [address] [facility] [place] [id number] [address] [place] [address] Dec, Bipolar 1 disorder, mixed F3 1.60 [facility] [address] [facility] [place] [id number] [address] [place] [address] 18 Dec, 2016 Bipolar 1 disorder, mixed F3 1.60 ; Generalized anxiety disorder F41.1 and Other assisted (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 Z79.899 [facility] [address] [facility] [place] [id number] [address] [place] [address] Dec, Bipolar 1 disorder, mixed F3 1.60 [facility] [address] [place] [id number] [address] [place] [address] Dec, Bipolar 1 disorder, mixed F3 1.60 [facility] [address] [facility] [place] [id number] [address] [place] [address] Dec, Bipolar 1 disorder, mixed F3 1.60 [facility] [address] [facility] [place] [id number] [address] [place] [address] Dec, Low back pain M54.5 and Recu rrent urinary tract infection N39.0 [facility] [address] [facility] [place] [id number] [address] [place] [address] Nov, Bipolar 1 disorder, mixed F3 1.60 [facility] [address] [facility] [place] [id number] [address] [place] [address] Nov, Bipolar 1 disorder, mixed F3 1.60 [facility] [address] [facility] [place] [id number] [address] [place] [address] Nov, Bipolar 1 disorder, mixed F3 1.60 [facility] [address] [facility] [place] [id number] [address] [place] [address] Nov, Bipolar 1 disorder, mixed F3 1.60 [facility] [address] [facility] [place] [id number] [address] [place] [address] Nov, [facility] [address] [facility] [place] [id number] [address] [place] [address] Nov, Anesthesia of skin R20.0 ; F requent UTI N39.0 ; Tobacco abuse Z72.0 and Colon cancer screening Z12.11 [facility] [address] [facility] [place] [id number] [address] [place] [address] Nov, Bipolar 1 disorder, mixed F3 1.60 [facility] [address] [facility] [place] [id number] [address] [place] [address] October, Bipolar 1 disorder, mixed F3 1.60 [facility] [address] [facility] [place] [id number] [address] [place] [address] October, Bipolar 1 disorder, mixed F3 1.60 [facility] [address] [facility] [place] [id number] [address] [place] [address] October, Bipolar 1 disorder, mixed F3 1.60 [place] [address] [address] October, Bipolar 1 disorder, mixed F3 1.60 [place] [address] [address] October, Bipolar 1 disorder, mixed F3 1.60 [place] [address] [address] October, Cervicalgia M54.2 and Bipola r 1 disorder, mixed F31.60 [place] [address] [address] October, Hypertension I10 ; Hyperlipi demia, unspecified hyperlipidemia type E78.5 and Family history of thyroid disease Z83.49 [place] [address] [address] October, [place] [address] [address] October, Hypertension I10 ; Hyperlipi demia, unspecified hyperlipidemia type E78.5 and Family history of thyroid problem Z83.49 [place] [address] [address] October, Bipolar 1 disorder, mixed F3 1.60 [place] [address] [address] Sep, Bipolar 1 disorder, mixed F3 1.60 [place] [address] [address] [place] [id number] [place] [address] Sep, Bipolar 1 disorder, mixed F3 1.60 [place] [address] [address] Sep, Bipolar 1 disorder, mixed F3 1.60 [place] [address] [address] Sep, History of colon polyps Z86. 010 and Hematochezia K92.1 [facility] [address] [place] [address] Sep, Major depressive disorder, r ecurrent episode, moderate F33.1 [facility] [address] [place] [id number] [address] [place] [address] Sep, Bipolar 1 disorder, mixed F3 1.60 [facility] [address] [place] [id number] [address] [place] [address] Aug, Hot flashes due to menopause N95.1 [facility] [address] [place] [id number] [place] [address] Aug, Bipolar 1 disorder, mixed F3 1.60 [facility] [address] [address] Aug, [facility] [address] [address] Aug, Bipolar 1 disorder, mixed F3 1.60 [facility] [address] [address] Aug, Bipolar 1 disorder, mixed F3 1.60 [facility] [address] [place] [id number] [place] [address] Aug, Hot flashes due to menopause N95.1 ; Cervicalgia M54.2 and Ataxia R27.0 [facility] [address] [place] [id number] [address] [place] [address] Jul, Bipolar 1 disorder, mixed F3 1.60 [facility] [address] [place] [id number] [address] [place] [address] Jul, Bipolar 1 disorder, mixed F3 1.60 [facility] [address] [place] [id number] [address] [place] [address] Jul, Bipolar 1 disorder, mixed F3 1.60 [facility] [address] [address] 13 Jul, 2016 Bipolar 1 disorder, mixed F3 1.60 [place] [address] [address] [place] [address] 10 Jul, 2016 Bipolar 1 disorder, mixed F3 1.60 [place] [address] 08 Jul, 2016 Cervicalgia M54.2 ; Tremor R 25.1 ; Hearing abnormally acute, unspecified laterality H93.239 ; Alopecia L65.9 ; Encounter for immunization Z23 and Family history of thyroid disease Z83.49 [place] [address] 06 Jul, 2016 Bipolar 1 disorder, mixed F3 1.60 [place] [address] [address] [place] [address] Jun, [place] [address] [address] [place] 6[address] Jun, Hearing disorder, unspecifie d laterality H93.299 [place] [address] [address] [place] [address] Jun, Bipolar 1 disorder, mixed F3 1.60 [place] [address] [address] Jun, Bipolar 1 disorder, mixed F3 1.60 [place] [address] [address] Jun, Allergic rhinitis J30.9 [place] [address] [address] Jun, Bipolar 1 disorder, mixed F3 1.60 [place] [address] [address] [place] 6[address] Jun, Bipolar 1 disorder, mixed F3 1.60 [place] [address] [address] Jun, Allergic rhinitis J30.9 [facility] [address] [facility] [place] [id number] [address] [place] [address] Jun, Allergic rhinitis J30.9 [facility] [address] [facility] [place] [id number] [address] [place] [address] Jun, Bipolar 1 disorder, mixed F3 1.60 [facility] [address] [facility] [place] [id number] [address] [place] [address] May, Bipolar 1 disorder, mixed F3 1.60 [facility] [address] [id number] [address] [place] [address] May, Bipolar 1 disorder, mixed F3 1.60 [facility] [address] [facility] [place] [id number] [address] [place] [address] May, [facility] [address] [facility] [place] [id number] [address] [place] [address] May, Bipolar 1 disorder, mixed F3 1.60 [facility] [address] [facility] [place] [id number] [address] [place] [address] May, Bipolar 1 disorder, mixed F3 1.60 [facility] [address] [facility] [place] [id number] [address] [place] [address] May, [facility] [address] [facility] [place] [id number] [address] [place] [address] May, [facility] [address] [facility] [place] [id number] [address] [place] [address] May, [facility] [address] [facility] [place] [id number] [address] [place] [address] May, Abdominal pain, unspecified location R10.9 [facility] [address] [facility] [place] [id number] [address] [place] [address] May, [facility] [address] [facility] [place] [id number] [address] [place] [address] Apr, Hematuria R31.9 ; Ataxia R27 .0 and Hearing loss, unspecified laterality H91.90 [facility] [address] [place] [id number] [address] [place] [address] Apr, Bipolar 1 disorder, mixed F3 1.60 [facility] [address] [address] 11 Apr, 2016 Acute effusion of both middl e ears H65.193 [facility] [address] [address] 10 Apr, 2016 Hematuria R31.9 and Pyelonep hritis N12 [facility] [address] [address] Apr, [place] [address] [address] Mar, Bipolar 1 disorder, mixed F3 1.60 [facility] [address] [address] Mar, [facility] [address] [address] Mar, Bipolar 1 disorder, mixed F3 1.60 [place] [address] [address] Mar, Bipolar 1 disorder, mixed F3 1.60 [facility] [address] [address] Mar, Encounter for immunization Z 23 and Gastritis without bleeding, unspecified chronicity, unspecified gastritis type K29.70 [facility] [address] [address] Mar, Bipolar 1 disorder, mixed F3 1.60 and Grief F43.20 [place] [address] [address] Mar, Gastritis without bleeding, unspecified chronicity, unspecified gastritis type K29.70 [place] [address] [address] Mar, Bipolar 1 disorder, mixed F3 1.60 [place] [address] [address] [facility] [place] [id number] [address] [place], [place] [id number] Mar, Gastritis without bleeding, unspecified chronicity, unspecified gastritis type K29.70 [facility] [address] [facility] [place] [id number] [address] [place] [address] Mar, [place] [address] [address] [place] [id number] [address] [place], [place] [id number] Feb, Bipolar 1 disorder, mixed F3 1.60 [place] [address] [address] [place] [id number] [address] [place], [place] [id number] Feb, Bipolar 1 disorder, mixed F3 1.60 and Grief F43.20 [place] [address] [address] [place] [id number] [address] [place] [address] Feb, Gastritis without bleeding, unspecified chronicity, unspecified gastritis type K29.70 [place] [address] [address] [place] [id number] [address] [place] [address] 14 Feb, 2016 Bipolar 1 disorder, mixed F3 1.60 [facility] [address] [place] [id number] [address] [place] [address] Feb, Gastroesophageal reflux dise ase, esophagitis presence not specified K21.9 [facility] [address] [place] [id number] [address] [place] [address] Jan, Bipolar 1 disorder, mixed F3 1.60 [place] [address] [address] [place] [id number] [address] [place] [address] Jan, Bipolar 1 disorder, mixed F3 1.60 and Unsteady gait R26.81 [place] [address] [address] [place] [id number] [address] [place] [address] Jan, Bipolar 1 disorder, mixed F3 1.60 [facility] [address] [place] [id number] [address] [place] [address] Jan, Bipolar 1 disorder, mixed F3 1.60 and Other assisted (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 Z79.899 [facility] [address] [facility] [place] [id number] [address] [place] [address] Jan, Bipolar 1 disorder, mixed F3 1.60 [facility] [address] [facility] [place] [id number] [address] [place] [address] Jan, Bipolar 1 disorder, mixed F3 1.60 [place] [address] [address] [place] [id number] [address] [place] [address] Jan, Bipolar 1 disorder, mixed F3 1.60 ; Grief F43.20 and Other assisted (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 Z79.899 [place] [address] [address] [place] [id number] [address] [place] [address] Jan, Bipolar 1 disorder, mixed F3 1.60 [place] [address] [address] [place] [id number] [address] [place] [address] Dec, [place] [address] [address] [place] [id number] [address] [place] [address] Dec, Bipolar 1 disorder, mixed F3 1.60 ; Vitamin D deficiency, unspecified E55.9 ; H/O allergic rhinitis Z87.09 ; Other chronic pain G89.29 and Dorsalgia, unspecified M54.9 [place] [address] [address] [place] [id number] [address] [place] [address] Dec, [place] [address] [address] [place] [id number] [address] [place] [address] Dec, Bipolar 1 disorder, mixed F3 1.60 [place] [address] [address] [place] [id number] [address] [place] [address] Dec, Major depressive disorder, r ecurrent episode, moderate F33.1 [place] [address] [address] [place] [id number] [address] [place] [address] Dec, Major depressive disorder, r ecurrent episode, moderate F33.1 [place] [address] [address] [place] [id number] [address] [place] [address] Nov, [facility] [address] [facility] [place] [id number] [address] [place] [address] Nov, Bipolar 1 disorder, mixed F3 1.60 [place] [address] [address] [facility] [place] [id number] [address] [place] [address] Nov, Major depressive disorder, r ecurrent episode, moderate F33.1 [place] [address] [address] [place] [id number] [address] [place] [address] Nov, Cervicalgia M54.2 ; Arthralg ia of hip, unspecified laterality M25.559 ; Allergic rhinitis J30.9 and Hormone replacement therapy Z79.890 [facility] [address] [facility] [place] [id number] [address] [place] [address] Nov, Other seasonal allergic rhin itis J30.2 [place] [address] [address] [facility] [place] [id number] [address] [place] [address] October, Major depressive disorder, r ecurrent episode, moderate F33.1 [place] [address] [address] [place] [id number] [address] [place] [address] October, Major depressive disorder, r ecurrent episode, moderate F33.1 and Arthralgia of hip, unspecified laterality M25.559 [place] [address] [address] [place] [id number] [address] [place] [address] October, Grief F43.20 ; Hypertension I10 ; Hyperlipidemia, unspecified hyperlipidemia type E78.5 ; Other chronic pain G89.29 and Allergic rhinitis, unspecified allergic rhinitis type J30.9 [place] [address] [address] [facility] [place] [id number] [address] [place] [address] October, Major depressive disorder, r ecurrent episode, moderate F33.1 [place] [address] [address] [facility] [place] [id number] [address] [place] [address] Sep, Major depressive disorder, r ecurrent episode, moderate F33.1 [place] [address] [place] [id number] [address] [place] [address] Sep, [facility] [address] [facility] [place] [id number] [address] [place] [address] Sep, Major depressive disorder, r ecurrent episode, moderate F33.1 [facility] [address] [facility] [place] [id number] [address] [place] [address] Sep, Grief F43.20 [facility] [address] [place] [id number] [address] [place] [address] Aug, Major depressive disorder, r ecurrent episode, moderate F33.1 [place] [address] [address] [place] [id number] [address] [place] [address] Aug, Bipolar 1 disorder, mixed F3 1.60 [place] [address] [place] [id number] [address] [place] [address] Aug, Allergic rhinitis J30.9 ; Ce rvicalgia M54.2 and Low back pain M54.5 [place] [address] [address] [place] [id number] [address] [place] [address] Aug, Major depressive disorder, r ecurrent episode, moderate F33.1 [facility] [address] [place] [id number] [address] [place] [address] Aug, Sinusitis J32.9 and Tobacco 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 [facility] [address] [place] [id number] [address] [place] [address] Aug, [facility] [address] [place] [address] Aug, Depressive disorder, not els ewhere classified F32.9 ; Hormone replacement therapy Z79.[address] scan, head R93.0 [place] [address] [address] [place] [id number] [address] [place] [address] Aug, Major depressive disorder, r ecurrent episode, moderate F33.1 [facility] [address] [place] [id number] [address] [place] [address] Jul, Major depressive disorder, r ecurrent episode, moderate F33.1 [facility] [address] [facility] [place] [id number] [address] [place] [address] Jul, Abdominal pain R10.9 and Hyp ertension I10 [facility] [address] [facility] [place] [id number] [address] [place] [address] Jul, [facility] [address] [place] [id number] [place] [address] Jul, Major depressive disorder, r ecurrent episode, moderate F33.1 [facility] [address] [facility] [place] [id number] [address] [place] [address] Jul, [facility] [address] [place] [id number] [address] [place] [address] Jul, [facility] [address] [place] [id number] [address] [place] [address] Jun, [facility] [address] [place] [id number] [address] [place] [address] Jun, Depressive disorder, not els ewhere classified F32.9 [facility] [address] [facility] [place] [id number] [address] [place] [address] Jun, [facility] [address] [place] [address] Jun, [facility] [address] [place] [address] Jun, Arthralgia of hip, unspecifi ed laterality M25.559 ; Bruising, spontaneous R23.3 and Night sweats R61 [facility] [address] [facility] [place] [id number] [address] [place] [id number] Jun, [facility] [address] [facility] [place] [id number] [address] [place] [id number] Jun, [facility] [address] [place] [id number] [address] [place] [id number] May, [facility] [address] [facility] [place] [id number] [address] [place] [id number] May, Myalgia M79.1 and Screening, lipid Z13.220 [facility] [address] [id number] [address] [place] [id number] Apr, Status post cervical spinal fusion Z98.1 ; Fibromyalgia M79.7 and Unsteady gait R26.81 [facility] [address] [id number] [address] [place] [id number] Nov, [facility] [address] [id number] [address] [place] [id number] Nov, [facility] [address] [id number] [address] [place] [id number] October, [facility] [address] [facility] [place] [id number] [address] [place] [id number] October, [facility] [address] [facility] [place] [id number] [address] [place] [id number] October, [facility] [address] [facility] [place] [id number] [address] [place] [id number] October, [facility] [address] [facility] [place] [id number] [address] [place] [phone] October, [facility] [address] [facility] [place] [id number] [address] [place] [id number] October, Dysuria 788.1 ; Nausea 787.0 2 and Urinary tract infection 599.0 [facility] [address] [facility] [place] [id number] [address] [place] [id number] Sep, [facility] [address] [facility] [place] [id number] [address] [place] [id number] Sep, [facility] [address] [facility] [place] [id number] [address] [place] [id number] Aug, [facility] [address] [facility] [place] [id number] [address] [place] [id number] 25 Aug, 2014 [facility] [address] [id number] [address] [place] [address], [place] [id number] 24 Aug, 2014 [facility] [address] [id number] [address] [place] [address], [place] [address] 24 Aug, 2014 [facility] [address] [id number] [address] [place] [address], [place] [address] 23 Aug, 2014 [facility] [address] [id number] [address] [place] [address], [place] [address] 19 Aug, 2014 [facility] [address] [id number] [address] [place] [address], [place] [address] 19 Aug, 2014 [facility] [address] [id number] [address] [place] [address], [place] [address] 19 Aug, 2014 [facility] [address] [id number] [address] [place] [address], [place] [address] 19 Aug, 2014 [facility] [address] [id number] [address] [place] [address], [place] [address] 18 Aug, 2014 [facility] [address] [id number] [address] [place] [address], [place] [address] 18 Aug, 2014 [facility] [address] [id number] [address] [place] [address], [place] [address] 13 Aug, 2014 [facility] [address] [id number] [address] [place] [address], [place] [address] 13 Aug, 2014 [facility] [address] [id number] [address] [place] [address], [place] [address] 11 Aug, 2014 [facility] [address] [id number] [address] [place] [address], [place] [address] 11 Aug, 2014 [facility] [address] [id number] [address] [place] [address], [place] [address] 06 Aug, 2014 [facility] [address] [id number] [address] [place] [address], [place] [address] 06 Aug, 2014 [facility] [address] [id number] [address] [place] [address], [place] [address] 05 Aug, 2014 [facility] [address] [id number] [address] [place] [address], [place] [address] 05 Aug, 2014 [facility] [address] [id number] [address] [place] [address], [place] [address] Aug, 2014 [facility] [address] [id number] [address] [place] [address], [place] [address] Aug, 2014 [facility] [address] [id number] [address] [place] [address], [place] [address] Aug, [facility] [address] [id number] [address] [place] [address], [place] [address] Jul, 2014 [facility] [address] [id number] [address] [place] [address], [place] [address] Jul, 2014 [facility] [address] [id number] [address] [place] [address], [place] [address] Jul, 2014 [facility] [address] [id number] [address] [place] [address], [place] [address] Jul, [facility] [address] [id number] [address] [place] [address], [place] [address] Jul, [facility] [address] [id number] [address] [place] [address], [place] [address] Jul, [facility] [address] [id number] [address] [place] [address], [place] [address] Jul, 2014 [facility] [address] [id number] [address] [place] [address], [place] [address] Jul, 2014 [facility] [address] [id number] [address] [place] [address], [place] [address] Jul, 2014 [facility] [address] [id number] [address] [place] [address], [place] [address] Jul, 2014 [facility] [address] [id number] [address] [place] [address], [place] [address] Jul, 2014 [facility] [address] [id number] [address] [place] [address], [place] [address] Jul, 2014 [facility] [address] [id number] [address] [place] [address], [place] [address] Jul, 2014 [facility] [address] [id number] [address] [place] [address], [place] [address] Jul, [facility] [address] [id number] [address] [place] [address], [place] [address] Jun, [facility] [address] [id number] [address] [place] [address], [place] [address] Jun, [facility] [address] [id number] [address] [place] [address], [place] [address] Jun, [facility] [address] [id number] [address] [place] [address], [place] [address] Jun, [facility] [address] [id number] [address] [place] [address], [place] [address] Jun, [facility] [address] [id number] [address] [place] [address], [place] [address] Jun, [facility] [address] [id number] [address] [place] [address], [place] [address] May, [facility] [address] [id number] [address] [place] [address], [place] [address] May, [facility] [address] [id number] [address] [place] [address], [place] [address] May, [facility] [address] [id number] [address] [place] [address], [place] [address] May, [facility] [address] [id number] [address] [place] [address], [place] [address] May, [facility] [address] [id number] [address] [place] [address], [place] [address] May, [facility] [address] [id number] [address] [place] [address], [place] [address] Apr, [facility] [address] [id number] [address] [place] [address], [place] [address] Apr, [facility] [address] [id number] [address] [place] [address], [place] [address] Apr, [facility] [address] [id number] [address] [place] [address], [place] [address] Apr, [facility] [address] [id number] [address] [place] [address], [place] [address] Apr, [facility] [address] [id number] [address] [place] [address], [place] [address] Apr, [facility] [address] [id number] [address] [place] [address], [place] [address] Mar, [facility] [address] [id number] [address] [place] [address], [place] [address] Mar, [facility] [address] [id number] [address] [place] [address], [place] [address] Mar, [facility] [address] [id number] [address] [place] [address] Mar, [facility] [address] [id number] [address] [place] [address] Mar, [facility] [address] [id number] [address] [place] [address] Mar, [facility] [address] [id number] [address] [place] [address] Mar, [facility] [address] [id number] [address] [place] [address] Mar, [facility] [address] [id number] [address] [place] [address] Mar, [facility] [address] [id number] [address] [place] [address] Mar, [facility] [address] [id number] [address] [place] [address], [place] [address] Mar, [facility] [address] [id number] [address] [place] [address], [place] [address] Mar, [facility] [address] [id number] [address] [place] [address], [place] [address] 30 Feb, 2014 [facility] [address] [id number] [address] [place] [address], [place] [address] Feb, [facility] [address] [id number] [address] [place] [address], [place] [address] Feb, [facility] [address] [id number] [address] [place] [address], [place] [address] Feb, [facility] [address] [id number] [address] [place] [address], [place] [address] Feb, [facility] [address] [id number] [address] [place] [address], [place] [address] Feb, [facility] [address] [id number] [address] [place] [address], [place] [address] Feb, [facility] [address] [id number] [address] [place] [address], [place] [address] Jan, [facility] [address] [id number] [address] [place] [address], [place] [address] Jan, [facility] [address] [id number] [address] [place] [address], [place] [address] Jan, [facility] [address] [id number] [address] [place] [address], [place] [address] Dec, [facility] [address] [id number] [address] [place] [address], [place] [address] Dec, [facility] [address] [id number] [address] [place] [address], [place] [address] Dec, [facility] [address] [id number] [address] [place] [address], [place] [address] Dec, [facility] [address] [id number] [address] [place] [address], [place] [address] Sep, [facility] [address] [id number] [address] [place] [address], [place] [address] Sep, [facility] [address] [id number] [address] [place] [address], [place] [address] Sep, [facility] [address] [id number] [address] [place] [address], [place] [address] Sep, [facility] [address] [id number] [address] [place] [address], [place] [address] Sep, [facility] [address] [id number] [address] [place] [address], [place] [address] Sep, [facility] [address] [id number] [address] [place] [address], [place] [address] Sep, [facility] [address] [id number] [address] [place] [address], [place] [address] Sep, [facility] [address] [id number] [address] [place] [address], [place] [address] Aug, [facility] [address] [id number] [address] [place] [address], [place] [address] Aug, [facility] [address] [id number] [address] [place] [address], [place] [address] May, [facility] [address] [id number] [address] [place] [address], [place] [address] May, [facility] [address] [id number] [address] [place] [address], [place] [address] Apr, [facility] [address] [id number] [address] [place] [address], [place] [address] Apr, [facility] [address] [id number] [address] [place] [address], [place] [address] Apr, [facility] [address] [id number] [address] [place] [address], [place] [address] Apr, [facility] [address] [id number] [address] [place] [address], [place] [address] Apr, [facility] [address] [id number] [address] [place] [address], [place] [address] Apr, [facility] [address] [id number] [address] [place] [address], [place] [address] May, [facility] [address] [id number] [address] [place] [address], [place] [address] 18 May, 2012 [facility] [address] [id number] [address] [place] [address], [place] [address] 15 May, 2012 [facility] [address] [id number] [address] [place] [address], [place] [address] May, [facility] [address] [id number] [address] [place] [address], [place] [address] May, [facility] [address] [id number] [address] [place] [address], [place] [address] May, [facility] [address] [id number] [address] [place] [address], [place] [address] Apr, [facility] [address] [id number] [address] [place] [address], [place] [address] Apr, [facility] [address] [id number] [address] [place] [address], [place] [address] Apr, [facility] [address] [id number] [address] [place] [address], [place] [address] Apr, [facility] [address] [id number] [address] [place] [address], [place] [address] Apr, [facility] [address] [id number] [address] [place] [address], [place] [address] Apr, [facility] [address] [id number] [address] [place] [address], [place] [address] 07 Apr, 2012 [facility] [address] [id number] [address] [place] [address], [place] [address] Apr, [facility] [address] [id number] [address] [place] [address], [place] [address] Apr, [facility] [address] [id number] [address] [place] [address], [place] [address] Apr, [facility] [address] [id number] [address] [place] [address], [place] [address] Mar, [facility] [address] [id number] [address] [place] [address], [place] [address] Mar, [facility] [address] [id number] [address] [place] [address], [place] [address] Mar, [facility] [address] [id number] [address] [place] [address], [place] [address] Mar, [facility] [address] [id number] [address] [place] [address], [place] [address] Mar, [facility] [address] [id number] [address] [place] [address], [place] [address] Mar, [facility] [address] [id number] [address] [place] [address], [place] [address] Mar, [facility] [address] [id number] [address] [place] [address], [place] [address] Mar, [facility] [address] [id number] [address] [place] [address], [place] [address] Mar, [facility] [address] [id number] [address] [place] [address], [place] [address] 25 Feb, 2012 [facility] [address] [id number] [address] [place] [address], [place] [address] 16 Sep2011 [facility] [address] [id number] [address] [place] [address], [place] [address] 11 Feb, 2012 [facility] [address] [id number] [facility] [place] [address] Jan, [facility] [address] [id number] [address] [place] [address], [place] [address] Jan, [facility] [address] [id number] [address] [place] [address], [place] [address] Jan, [facility] [address] [id number] [address] [place] [address], [place] [address] Jan, [facility] [address] [id number] [address] [place] [address], [place] [address] Jan, [facility] [address] [id number] [address] [place] [address], [place] [address] Jan, [facility] [address] [id number] [address] [place] [address], [place] [address] Jan, [facility] [address] [id number] [address] [place] [address], [place] [address] Jan, [facility] [address] [id number] [address] [place] [address], [place] [address] Jan, [facility] [address] [id number] [address] [place] [address], [place] [address] Jan, [facility] [address] [id number] [address] [place] [address], [place] [address] Dec, [facility] [address] [id number] [address] [place] [address], [place] [address] Dec, [facility] [address] [id number] [address] [place] [address], [place] [address] Dec, [facility] [address] [id number] [address] [place] [address], [place] [address] Dec, [facility] [address] [id number] [address] [place] [address], [place] [address] Nov, [facility] [address] [id number] [address] [place] [address], [place] [address] 08 Nov, 2011 [facility] [address] [id number] [address] [place] [address] Nov, [facility] [address] [id number] [address] [place] [address] October, [facility] [address] [id number] [address] [place] [address] October, [facility] [address] [id number] [address] [place] [address] October, [facility] [address] [id number] [address] [place] [address] October, [facility] [address] [id number] [address] [place] [address] October, [facility] [address] [id number] [address] [place] [id number] October, [facility] [address] [id number] [address] [place] [address] Aug, [facility] [address] [id number] [address] [place] [address] Mar, [facility] [address] [id number] [address] [place] [address] Nov, [facility] [address] [id number] [address] [place] [address] May, [facility] [address] [id number] [address] [place] [address] May, [facility] [address] [id number] [address] [place] [address] Apr, [facility] [address] [id number] [address] [place] [address] Mar, [facility] [address] [id number] [address] [place] [address] Mar, IMMUNIZATIONS No Known Immunizations SOCIAL HISTORY Never Assessed REASON FOR VISIT PA/ MOMETASONE- Denied PLAN OF CARE VITAL SIGNS MEDICATIONS Unknown [...]
--- OUTSIDE RECORDS SUMMARY | 2019-06-19 05:11 | XMS REPORT ---
Author Author Sydnie Huston Doctor Organization [facility] Address Unknown Phone Unavailable Care Team Providers Care Ring Facer Name Role Phone Migration, Doctor Unavailable Unavailable PROBLEMS Type Condition ICD9-CM Code [id number] Code Onset Dates Condition S tatus SNOMED Code Problem Age-related osteoporosis without current pathological fracture M81.0 Active 09597079 Problem Sensorineural hearing loss (SNHL) of both ears H90 .3 Active 0760[address]15 Problem Abnormal CT scan, head R93.0 Active 370862027 Problem Arthralgia of hip, unspecified laterality M25.559 Active 58481028 Problem Bruising, spontaneous R23.3 Active 808794485 Problem Hypertension I10 Active 6539699 3 Problem Night sweats R61 Active 4367178 0 Problem Imbalance R26.89 Active 128793509 Problem Hammer toe of right foot M20.41 Activ e 677578739 Problem Hormone replacement therapy Z79.890 Ac tive 349552339 Problem Bipolar 1 disorder, mixed F31.60 Acti ve 81769355 Problem Gastritis without bleeding, unspecified chronicity, unspecified gastritis type K29.70 Active 946155145 Problem Ataxia R27.0 Active 57294273 Problem Hearing loss, unspecified laterality H91.90 Active 09245709 Problem History of colon polyps Z86.010 Active 812925389 Problem Allergic rhinitis J30.9 Active 61 739245 Problem Hematuria, unspecified type R31.9 Ac tive 86815208 Problem Generalized anxiety disorder F41.1 A ctive 47017102 Problem Major depressive disorder, recurrent episode, moderate F33.1 Active 548165440 Problem Fibromyalgia M79.7 Active 2960932 7 Problem Bladder spasm N32.89 Active 026870 006 Problem Tobacco use disorder F17.200 Active 032382769 Problem Other chronic pain G89.29 Active 8 0749346 Problem Post menopausal syndrome N95.1 Activ e 875700913 Problem Grief F43.20 Active 58641643 Problem Hyperlipidemia, unspecified hyperlipidemia type E7 8.5 Active 41584877 Problem Acute left-sided low back pain with left-sided sciatica M54.42 Active 621978730 Problem Sciatica of left side M54.32 Active 01285111 Problem Plantar wart of right foot B07.0 Act mitchell [id number] Problem Slow transit constipation K59.01 Acti ve 53128948 ALLERGIES No Information ENCOUNTERS Encounter Location Date Diagnosis [facility] [id number] [place] [address] Jan, [facility] [address] [facility] [id number] [address] [place] [address] Dec, [facility] [id number] [place] [address] Dec, [facility] [id number] [place] [address] Dec, Bipolar 1 disorder, mixed F3 1.60 [facility] [id number] [place] [address] Nov, Bipolar 1 disorder, mixed F3 1.60 [facility] [id number] [place] [address] Nov, Bipolar 1 disorder, mixed F3 1.60 ; Generalized anxiety disorder F41.1 ; Tobacco use disorder F17.200 and 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 [facility] [id number] [place] [address] Nov, [facility] [id number] [place] [address] Nov, Bipolar 1 disorder, mixed F3 1.60 [facility] [id number] [place] [address] October, Bipolar 1 disorder, mixed F3 1.60 [facility] [id number] [place] [address] October, Bipolar 1 disorder, mixed F3 1.60 [facility] [id number] [place] [address] October, [facility] [id number] [place] [address] October, Bipolar 1 disorder, mixed F3 1.60 ; Generalized anxiety disorder F41.1 and Tobacco use disorder F17.200 [facility] [id number] [place] [address] Sep, [facility] [address] [place] [address] Sep, Encounter for [facility] wellness exam Z00.00 ; Major depressive disorder, recurrent episode, moderate F33.1 ; Allergic rhinitis J30.9 ; Bipolar 1 disorder, mixed F31.60 ; Fibromyalgia M79.7 ; Hyperlipidemia, unspecified hyperlipidemia type E78.5 ; Hormone replacement therapy Z79.890 ; Encounter for screening for lung cancer Z12.2 and Tobacco use disorder F17.200 [place] [address] [place] [address] Sep, Bipolar 1 disorder, mixed F3 1.60 [facility] [id number] [place] [address] Sep, Other chronic pain G89.29 ; Hyperlipidemia, unspecified hyperlipidemia type E78.5 ; Breast cancer screening Z12.31 and Post menopausal syndrome N95.1 [facility] [id number] [place] [address] Sep, Bipolar 1 disorder, mixed F3 1.60 [facility] [id number] [place] [address] Sep, Bipolar 1 disorder, mixed F3 1.60 ; Generalized anxiety disorder F41.1 and Tobacco use disorder F17.200 [facility] [id number] [place] [address] Sep, Gastritis without bleeding, unspecified chronicity, unspecified gastritis type K29.70 [facility] [id number] [place] [address] Sep, Exercise counseling Z71.82 [facility] [address] [place] [address] Aug, Exercise counseling Z71.82 [facility] [id number] [place] [address] Aug, Bipolar 1 disorder, mixed F3 1.60 [facility] [address] [id number] [place] [address] Aug, Exercise counseling Z71.82 [place] [address] [place] [address] Aug, Bipolar 1 disorder, mixed F3 1.60 [facility] [address] [id number] [place] [address] Aug, Gastritis without bleeding, unspecified chronicity, unspecified gastritis type K29.70 ; Tobacco abuse Z72.0 ; Generalized anxiety disorder F41.1 and Weight gain R63.5 [place] [address] [place] [address] Aug, Bipolar 1 disorder, mixed F3 1.60 ; Generalized anxiety disorder F41.1 and Tobacco use disorder F17.200 [facility] [address] [id number] [place] [address] Jul, Bipolar 1 disorder, mixed F3 1.60 [place] [address] [place] [address] Jul, [facility] [address] [id number] [place] [address] Jul, Bipolar 1 disorder, mixed F3 1.60 [facility] [address] [id number] [place] [address] 11 Jul, 2018 Allergic rhinitis J30.9 ; Ma darion depressive disorder, recurrent episode, moderate F33.1 and Tobacco 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 [facility] [facility] [address] [id number] [place] [address] Jun, [facility] [address] [facility] [id number] [address] [place] [address] Jun, [facility] [address] [facility] [id number] [address] [place] [address] Jun, Bipolar 1 disorder, mixed F3 1.60 [facility] [address] [facility] [id number] [address] [place] [address] Jun, Bipolar 1 disorder, mixed F3 1.60 [facility] [address] [facility] [id number] [address] [place] [address] Jun, Bipolar 1 disorder, mixed F3 1.60 [facility] [address] [facility] [id number] [address] [place] [address] Jun, Generalized anxiety disorder F41.1 ; Tobacco abuse Z72.0 and Major depressive disorder, recurrent episode, moderate F33.1 [facility] [address] [facility] [id number] [address] [place] [address] May, Bipolar 1 disorder, mixed F3 1.60 [facility] [address] [facility] [id number] [address] [place] [address] May, Bipolar 1 disorder, mixed F3 1.60 and Generalized anxiety disorder F41.1 [facility] [address] [facility] [id number] [address] [place] [address] May, Bipolar 1 disorder, mixed F3 1.60 [facility] [address] [facility] [id number] [address] [place] [address] May, Allergic rhinitis J30.9 [facility] [address] [facility] [id number] [address] [place] [address] May, Bipolar 1 disorder, mixed F3 1.60 [facility] [address] [facility] [id number] [address] [place] [address] May, [facility] [address] [facility] [id number] [address] [place] [address] Apr, Allergic rhinitis J30.9 ; Dy sfunction of both eustachian tubes H69.83 ; History of bladder surgery Z98.890 and Cervicalgia M54.2 [facility] [id number] [place] [address] Mar, Bipolar 1 disorder, mixed F3 1.60 [facility] [id number] [place] [address] Mar, [facility] [address] [address] Mar, Slow transit constipation K5 9.01 ; Encounter for immunization Z23 and Generalized anxiety disorder F41.1 [facility] [id number] [place] [address] 27 Feb, 2018 Bipolar 1 disorder, mixed F3 1.60 [facility] [address] [address] 26 Feb, 2018 Allergic rhinitis J30.9 [facility] [id number] [place] [address] 24 Feb, 2018 Bipolar 1 disorder, mixed F3 1.60 [facility] [id number] [place] [address] 20 Feb, 2018 Bipolar 1 disorder, mixed F3 1.60 and Generalized anxiety disorder F41.1 [facility] [id number] [place] [address] 13 Feb, 2018 Bipolar 1 disorder, mixed F3 1.60 [facility] [id number] [place] [address] 11 Feb, 2018 Allergic rhinitis J30.9 [facility] [id number] [place] [address] 05 Feb, 2018 [facility] [id number] [place] [address] Jan, Bipolar 1 disorder, mixed F3 1.60 [facility] [id number] [place], [place] [address] Jan, Low back pain M54.5 ; Hyperl ipidemia, unspecified hyperlipidemia type E78.5 and Bipolar 1 disorder, mixed F31.60 [facility] [id number] [place], [place] [address] Jan, Bipolar 1 disorder, mixed F3 1.60 [facility] [id number] [place] [address] Jan, Bipolar 1 disorder, mixed F3 1.60 [facility] [id number] [place] [address] Jan, Bipolar 1 disorder, mixed F3 1.60 [facility] [id number] [place] [address] Jan, Bipolar 1 disorder, mixed F3 1.60 [facility] [id number] [place] [address] Dec, Bipolar 1 disorder, mixed F3 1.60 ; Generalized anxiety disorder F41.1 and 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 [place] [id number] [place] [address] Dec, 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 (current) dr ug therapy Z79.899 [facility] [id number] [place] [address] Dec, Bipolar 1 disorder, mixed F3 1.60 [facility] [id number] [place] [address] Dec, Bipolar 1 disorder, mixed F3 1.60 [facility] [id number] [place] [address] Nov, Bipolar 1 disorder, mixed F3 1.60 [facility] [id number] [place] [address] Nov, Bipolar 1 disorder, mixed F3 1.60 [facility] [id number] [place] [address] Nov, Bipolar 1 disorder, mixed F3 1.60 [facility] [address] [facility] [id number] [address] [place] [address] Nov, Allergic rhinitis J30.9 [facility] [address] [facility] [id number] [address] [place] [address] Nov, Allergic rhinitis J30.9 [facility] [id number] [place] [address] Nov, [facility] [id number] [place] [address] Nov, Bipolar 1 disorder, mixed F3 1.60 [facility] [id number] [place] [address] Nov, Fibromyalgia M79.7 and Aller gic rhinitis J30.9 [facility] [id number] [place] [address] October, Bipolar 1 disorder, mixed F3 1.60 [facility] [id number] [place] [address] October, Acute nasopharyngitis J00 [facility] [id number] [place] [address] October, Bitten or stung by nonvenomo us insect and other nonvenomous arthropods, initial encounter W57.XXXA and Insect bite (nonvenomous) of abdominal wall, initial encounter S30.861A [facility] [id number] [place] [address] October, Insect bite (nonvenomous) of abdominal wall, initial encounter S30.861A ; Bitten or stung by nonvenomous insect and other nonvenomous arthropods, initial encounter W57.XXXA ; Allergic rhinitis J30.9 and Low back pain M54.5 [facility] [id number] [place] [address] October, Bipolar 1 disorder, mixed F3 1.60 [facility] [address] [id number] [address] [place] [address] October, [facility] [address] [id number] [address] [place] [address] October, [facility] [address] [id number] [address] [place] [address] October, Bipolar 1 disorder, mixed F3 1.60 [facility] [address] [id number] [address] [place] [address] Sep, Bipolar 1 disorder, mixed F3 1.60 [facility] [address] [id number] [address] [place] [address] Sep, Other chronic pain G89.29 [facility] [address] [facility] [id number] [address] [place] [address] Sep, [facility] [address] [id number] [address] [place] [address] Sep, Bipolar 1 disorder, mixed F3 1.60 [facility] [address] [facility] [id number] [address] [place] [address] Sep, Allergic rhinitis J30.9 and Sciatica of left side M54.32 [facility] [address] [facility] [id number] [address] [place] [address] Sep, Bipolar 1 disorder, mixed F3 1.60 [facility] [address] [id number] [address] [place] [address] Sep, Bipolar 1 disorder, mixed F3 1.60 and Generalized anxiety disorder F41.1 [facility] [address] [facility] [id number] [address] [place] [address] Aug, [facility] [address] [id number] [address] [place] [address] Aug, Bipolar 1 disorder, mixed F3 1.60 [facility] [address] [facility] [id number] [address] [place] [address] Aug, Bipolar 1 disorder, mixed F3 1.60 [facility] [address] [facility] [id number] [address] [place] [address] Aug, [facility] [address] [facility] [id number] [address] [place] [address] Aug, Generalized anxiety disorder F41.1 [facility] [id number] [place] [address] Aug, Bipolar 1 disorder, mixed F3 1.60 [facility] [address] [facility] [id number] [address] [place] [address] Aug, Plantar wart of right foot B 07.0 [facility] [address] [facility] [id number] [address] [place] [address] Aug, Bipolar 1 disorder, mixed F3 1.60 [facility] [id number] [place] [address] Jul, Bipolar 1 disorder, mixed F3 1.60 [facility] [address] [facility] [id number] [address] [place] [address] Jul, [facility] [id number] [place] [address] Jul, Bipolar 1 disorder, mixed F3 1.60 [facility] [id number] [place] [address] Jul, Generalized anxiety disorder F41.1 [facility] [address] [facility] [id number] [address] [place] [address] Jul, Bipolar 1 disorder, mixed F3 1.60 [facility] [address] [facility] [id number] [address] [place] [address] Jul, Acute left-sided low back pa in with left-sided sciatica M54.42 [facility] [id number] [place] [address] 05 Jul, 2017 Coccydynia M53.3 [facility] [id number] [place] [address] Jun, Bipolar 1 disorder, mixed F3 1.60 [facility] [id number] [place] [address] Jun, Acute nasopharyngitis J00 [place] [address] [address] Jun, Bipolar 1 disorder, mixed F3 1.60 [place] [address] [place] [address] Jun, Fibromyalgia M79.7 [facility] [id number] [place] [address] Jun, Bipolar 1 disorder, mixed F3 1.60 [place] [address] [address] Jun, Fibromyalgia M79.7 and Bipol ar 1 disorder, mixed F31.60 [facility] [id number] [place] [address] May, Bipolar 1 disorder, mixed F3 1.60 ; Generalized anxiety disorder F41.1 and 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 [place] [address] [address] May, Bipolar 1 disorder, mixed F3 1.60 [facility] [address] [address] 14 May, 2017 Cough R05 and Body aches R52 [facility] [place] [facility] [place] [address] [address] 10 May, 2017 Bladder spasm N32.89 [address] te cystitis without hematuria N30.00 [place] [address] [place] [id number] [address] [place] [address] 07 May, 2017 Bipolar 1 disorder, mixed F3 1.60 [place] [id number] [place] [address] Apr, [facility] [address] [address] Apr, Major depressive disorder, r ecurrent episode, moderate F33.1 and Encounter for immunization Z23 [facility] [address] [address] Apr, Bipolar 1 disorder, mixed F3 1.60 [facility] [address] [address] Apr, Bipolar 1 disorder, mixed F3 1.60 [place] [address] [place] [address] Apr, Bipolar 1 disorder, mixed F3 1.60 [facility] [address] [address] Apr, Yeast vaginitis B37.3 [facility] [address] [address] Apr, Bipolar 1 disorder, mixed F3 1.60 [facility] [address] [address] Apr, Cellulitis L03.[address] for immunization Z23 [facility] [address] [address] Apr, Bipolar 1 disorder, mixed F3 1.60 [facility] [address] [address] Mar, Bipolar 1 disorder, mixed F3 1.60 [facility] [address] [address] Mar, Bipolar 1 disorder, mixed F3 1.60 [facility] [address] [id number] [address] [place] [address] Mar, Imbalance R26.89 [address] En[address] er for immunization Z23 [facility] [id number] [place] [address] Mar, Generalized anxiety disorder F41.1 [facility] [id number] [place] [address] Mar, Bipolar 1 disorder, mixed F3 1.60 [facility] [place] [address] [id number] [place] [address] Mar, Generalized anxiety disorder F41.1 [facility] [id number] [place] [address] Mar, Bipolar 1 disorder, mixed F3 1.60 [facility] [place] [id number] [place] [id number] Mar, Bipolar 1 disorder, mixed F3 1.60 [place] [address] [place] [id number] [place] [phone] Feb, Bipolar 1 disorder, mixed F3 1.60 [place] [address] [place] [id number] [place] [id number] Feb, Bipolar 1 disorder, mixed F3 1.60 and Generalized anxiety disorder F41.1 [place] [address] [place] [id number] [place] [phone] Feb, Gastritis without bleeding, unspecified chronicity, unspecified gastritis type K29.70 ; Hammer toe of right foot M20.41 and Other viral warts B07.8 [place] [address] [place] [id number] [place] [phone] Feb, Bipolar 1 disorder, mixed F3 1.60 [place] [address] [place] [id number] [place] [phone] 13 Feb, 2017 Bipolar 1 disorder, mixed F3 1.60 [place] [address] [place] [id number] [place] [phone] 05 Feb, 2017 Bipolar 1 disorder, mixed F3 1.60 [place] [address] [place] [id number] [place] [phone] Jan, Encounter for screening mamm ogram for breast cancer Z12.31 ; Other viral warts B07.8 and Allergic rhinitis J30.9 [facility] [address] [facility] [id number] [address] [place] [phone] Jan, Bipolar 1 disorder, mixed F3 1.60 [place] [address] [facility] [id number] [address] [place] [phone] Jan, Bipolar 1 disorder, mixed F3 1.60 [place] [address] [facility] [id number] [address] [place] [phone] Jan, [place] [address] [place] [id number] [place] [phone] Jan, Bipolar 1 disorder, mixed F3 1.60 [place] [address] [place] [id number] [place] [phone] Jan, Bipolar 1 disorder, mixed F3 1.60 [place] [address] [place] [id number] [address] [place] [address] Jan, Allergic rhinitis J30.9 ; He maturia R31.9 and Colon cancer screening Z12.11 [place] [address] [place] [id number] [address] [place] [address] Dec, Bipolar 1 disorder, mixed F3 1.60 [place] [address] [place] [id number] [address] [place] [address] Dec, Bipolar 1 disorder, mixed F3 1.60 ; Generalized anxiety disorder F41.1 and 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 [place] [address] [facility] [id number] [address] [place] [address] Dec, Bipolar 1 disorder, mixed F3 1.60 [place] [address] [place] [id number] [address] [place] [address] Dec, Bipolar 1 disorder, mixed F3 1.60 [place] [address] [place] [id number] [address] [place] [address] Dec, Bipolar 1 disorder, mixed F3 1.60 [facility] [address] [facility] [id number] [address] [place] [address] Dec, Low back pain M54.5 and Recu rrent urinary tract infection N39.0 [facility] [address] [facility] [id number] [address] [place] [address] Nov, Bipolar 1 disorder, mixed F3 1.60 [facility] [address] [facility] [id number] [address] [place] [address] Nov, Bipolar 1 disorder, mixed F3 1.60 [facility] [address] [facility] [id number] [address] [place] [address] Nov, Bipolar 1 disorder, mixed F3 1.60 [facility] [address] [facility] [id number] [address] [place] [address] Nov, Bipolar 1 disorder, mixed F3 1.60 [facility] [address] [facility] [id number] [address] [place] [address] Nov, [facility] [address] [facility] [id number] [address] [place] [address] Nov, Anesthesia of skin R20.0 ; F requent UTI N39.0 ; Tobacco abuse Z72.0 and Colon cancer screening Z12.11 [facility] [address] [facility] [id number] [address] [place] [address] Nov, Bipolar 1 disorder, mixed F3 1.60 [facility] [address] [facility] [id number] [address] [place] [address] October, Bipolar 1 disorder, mixed F3 1.60 [facility] [address] [facility] [id number] [address] [place] [address] October, Bipolar 1 disorder, mixed F3 1.60 [facility] [address] [facility] [id number] [address] [place] [address] October, Bipolar 1 disorder, mixed F3 1.60 [facility] [address] [address] October, Bipolar 1 disorder, mixed F3 1.60 [place] [address] [address] October, Bipolar 1 disorder, mixed F3 1.60 [place] [address] [address] October, Cervicalgia M54.2 and Bipola r 1 disorder, mixed F31.60 [facility] [address] [address] October, Hypertension I10 ; Hyperlipi demia, unspecified hyperlipidemia type E78.5 and Family history of thyroid disease Z83.49 [facility] [address] [address] October, [facility] [address] [address] October, Hypertension I10 ; Hyperlipi demia, unspecified hyperlipidemia type E78.5 and Family history of thyroid problem Z83.49 [facility] [address] [address] October, Bipolar 1 disorder, mixed F3 1.60 [facility] [address] [address] Sep, Bipolar 1 disorder, mixed F3 1.60 [facility] [address] [place] [id number] [address] [place] [address] Sep, Bipolar 1 disorder, mixed F3 1.60 [facility] [address] [address] Sep, Bipolar 1 disorder, mixed F3 1.60 [place] [address] [place] [id number] [address] [place] [address] Sep, History of colon polyps Z86. 010 and Hematochezia K92.1 [facility] [address] [place] [id number] [address] [place] [address] Sep, Major depressive disorder, r ecurrent episode, moderate F33.1 [facility] [address] [facility] [id number] [address] [place], [place] [id number] Sep, Bipolar 1 disorder, mixed F3 1.60 [facility] [address] [place] [id number] [address] [place] [address] Aug, Hot flashes due to menopause N95.1 [facility] [address] [facility] [id number] [address] [place] [address] Aug, Bipolar 1 disorder, mixed F3 1.60 [facility] [address] [place] [id number] [address] [place] [address] Aug, [facility] [address] [place] [id number] [address] [place] [address] Aug, Bipolar 1 disorder, mixed F3 1.60 [facility] [address] [place] [id number] [address] [place] [address] Aug, Bipolar 1 disorder, mixed F3 1.60 [facility] [address] [place] [id number] [address] [place] [address] Aug, Hot flashes due to menopause N95.1 ; Cervicalgia M54.2 and Ataxia R27.0 [facility] [address] [place] [id number] [address] [place] [address] Jul, Bipolar 1 disorder, mixed F3 1.60 [facility] [address] [place] [id number] [address] [place] [address] Jul, Bipolar 1 disorder, mixed F3 1.60 [facility] [address] [place] [id number] [address] [place] [address] Jul, Bipolar 1 disorder, mixed F3 1.60 [facility] [address] [place] [id number] [address] [place] [address] Jul, Bipolar 1 disorder, mixed F3 1.60 [place] [address] [address] 10 Jul, 2016 Bipolar 1 disorder, mixed F3 1.60 [place] [address] [place] 121152[address] 08 Jul, 2016 Cervicalgia M54.2 ; Tremor R 25.1 ; Hearing abnormally acute, unspecified laterality H93.239 ; Alopecia L65.9 ; Encounter for immunization Z23 and Family history of thyroid disease Z83.49 [place] [address] [address] Jul, Bipolar 1 disorder, mixed F3 1.60 [place] [address] Jun, [place] [address] Jun, Hearing disorder, unspecifie d laterality H93.299 [place] [address] [address] Jun, Bipolar 1 disorder, mixed F3 1.60 [place] [address] [place] [address] Jun, Bipolar 1 disorder, mixed F3 1.60 [place] [address] [address] Jun, Allergic rhinitis J30.9 [place] [address] [address] Jun, Bipolar 1 disorder, mixed F3 1.60 [facility] [address] [address] Jun, Bipolar 1 disorder, mixed F3 1.60 [place] [address] [address] Jun, Allergic rhinitis J30.9 [place] [address] [address] Jun, Allergic rhinitis J30.9 [facility] [address] [facility] [id number] [address] [place] [address] Jun, Bipolar 1 disorder, mixed F3 1.60 [facility] [address] [facility] [id number] [address] [place] [address] May, Bipolar 1 disorder, mixed F3 1.60 [facility] [address] [id number] [address] [place] [address] May, Bipolar 1 disorder, mixed F3 1.60 [facility] [address] [id number] [address] [place] [address] May, [facility] [address] [facility] [id number] [address] [place], [place] [address] May, Bipolar 1 disorder, mixed F3 1.60 [facility] [address] [facility] [id number] [address] [place] [address] May, Bipolar 1 disorder, mixed F3 1.60 [facility] [address] [facility] [id number] [address] [place] [address] May, [facility] [address] [facility] [id number] [address] [place] [address] May, [facility] [address] [place] [id number] [address] [place] [address] May, [facility] [address] [facility] [id number] [address] [place] [address] May, Abdominal pain, unspecified location R10.9 [facility] [address] [facility] [id number] [address] [place] [address] May, [facility] [address] [facility] [id number] [address] [place], [place] [address] Apr, Hematuria R31.9 ; Ataxia R27 .0 and Hearing loss, unspecified laterality H91.90 [facility] [address] [facility] [id number] [address] [place] [address] Apr, Bipolar 1 disorder, mixed F3 1.60 [facility] [address] [place] [id number] [address] [place] [address] Apr, Acute effusion of both middl e ears H65.193 [facility] [address] [place] [id number] [address] [place] [address] 10 Apr, 2016 Hematuria R31.9 and Pyelonep hritis N12 [facility] [address] [place] [id number] [address] [place] [address] Apr, [facility] [address] [address] Mar, Bipolar 1 disorder, mixed F3 1.60 [facility] [address] [address] Mar, [facility] [address] [address] Mar, Bipolar 1 disorder, mixed F3 1.60 [facility] [address] [address] Mar, Bipolar 1 disorder, mixed F3 1.60 [facility] [address] [address] Mar, Encounter for immunization Z 23 and Gastritis without bleeding, unspecified chronicity, unspecified gastritis type K29.70 [facility] [address] [place] [address] Mar, Bipolar 1 disorder, mixed F3 1.60 and Grief F43.20 [place] [address] [address] Mar, Gastritis without bleeding, unspecified chronicity, unspecified gastritis type K29.70 [facility] [address] [place] [id number] [address] [place] [address] Mar, Bipolar 1 disorder, mixed F3 1.60 [place] [address] [place] [id number] [place] [address] 05 Mar, 2016 Gastritis without bleeding, unspecified chronicity, unspecified gastritis type K29.70 [facility] [address] [place], [place] [id number] Mar, [facility] [address] [address] 27 Feb, 2016 Bipolar 1 disorder, mixed F3 1.60 [facility] [address] [address] Feb, Bipolar 1 disorder, mixed F3 1.60 and Grief F43.20 [place] [address] [address] Feb, Gastritis without bleeding, unspecified chronicity, unspecified gastritis type K29.70 [place] [address] [address] 14 Feb, 2016 Bipolar 1 disorder, mixed F3 1.60 [facility] [address] [place] [id number] [address] [place] [address] 09 Feb, 2016 Gastroesophageal reflux dise ase, esophagitis presence not specified K21.9 [facility] [address] [address] Jan, Bipolar 1 disorder, mixed F3 1.60 [place] [address] [place] [id number] [address] [place] [address] Jan, Bipolar 1 disorder, mixed F3 1.60 and Unsteady gait R26.81 [place] [address] [place] [id number] [address] [place] [address] Jan, Bipolar 1 disorder, mixed F3 1.60 [facility] [address] [place] [id number] [address] [place] [address] Jan, Bipolar 1 disorder, mixed F3 1.60 and 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 [place] [address] [place] [id number] Jan, Bipolar 1 disorder, mixed F3 1.60 [facility] [address] [facility] [id number] [address] [place] [address] Jan, Bipolar 1 disorder, mixed F3 1.60 [facility] [address] [facility] [id number] [address] [place] [address] Jan, Bipolar 1 disorder, mixed F3 1.60 ; Grief F43.20 and 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 [facility] [address] [facility] [id number] [address] [place] [address] Jan, Bipolar 1 disorder, mixed F3 1.60 [facility] [address] [place] [id number] [address] [place] [address] Dec, [facility] [address] [place] [id number] [address] [place] [address] Dec, Bipolar 1 disorder, mixed F3 1.60 ; Vitamin D deficiency, unspecified E55.9 ; H/O allergic rhinitis Z87.09 ; Other chronic pain G89.29 and Dorsalgia, unspecified M54.9 [facility] [address] [place] [id number] [address] [place] [address] Dec, [facility] [address] [place] [id number] [address] [place] [address] Dec, Bipolar 1 disorder, mixed F3 1.60 [facility] [address] [place] [id number] [address] [place] [address] Dec, Major depressive disorder, r ecurrent episode, moderate F33.1 [facility] [address] [place] [id number] [address] [place] [address] Dec, Major depressive disorder, r ecurrent episode, moderate F33.1 [facility] [address] [facility] [id number] [address] [place] [address] Nov, [facility] [address] [place] [id number] [address] [place] [address] Nov, Bipolar 1 disorder, mixed F3 1.60 [place] [address] [facility] [id number] [address] [place] [address] Nov, Major depressive disorder, r ecurrent episode, moderate F33.1 [place] [address] [facility] [id number] [address] [place] [address] Nov, Cervicalgia M54.2 ; Arthralg ia of hip, unspecified laterality M25.559 ; Allergic rhinitis J30.9 and Hormone replacement therapy Z79.890 [facility] [address] [facility] [id number] [address] [place] [address] Nov, Other seasonal allergic rhin itis J30.2 [place] [address] [facility] [id number] [address] [place] [address] October, Major depressive disorder, r ecurrent episode, moderate F33.1 [place] [address] [place] [id number] [address] [place] [address] October, Major depressive disorder, r ecurrent episode, moderate F33.1 and Arthralgia of hip, unspecified laterality M25.559 [place] [address] [place] [id number] [address] [place] [address] October, Grief F43.20 ; Hypertension I10 ; Hyperlipidemia, unspecified hyperlipidemia type E78.5 ; Other chronic pain G89.29 and Allergic rhinitis, unspecified allergic rhinitis type J30.9 [place] [address] [facility] [id number] [address] [place] [address] October, Major depressive disorder, r ecurrent episode, moderate F33.1 [place] [address] [facility] [id number] [address] [place] [address] Sep, Major depressive disorder, r ecurrent episode, moderate F33.1 [place] [address] [facility] [id number] [address] [place] [address] Sep, [place] [address] [place] [id number] [address] [place] [address] Sep, Major depressive disorder, r ecurrent episode, moderate F33.1 [facility] [address] [facility] [id number] [address] [place] [address] Sep, Grief F43.20 [facility] [address] [facility] [id number] [address] [place] [address] Aug, Major depressive disorder, r ecurrent episode, moderate F33.1 [facility] [address] [facility] [id number] [address] [place] [address] Aug, Bipolar 1 disorder, mixed F3 1.60 [place] [address] [facility] [id number] [address] [place] [address] Aug, Allergic rhinitis J30.9 ; Ce rvicalgia M54.2 and Low back pain M54.5 [place] [address] [facility] [id number] [address] [place] [address] Aug, Major depressive disorder, r ecurrent episode, moderate F33.1 [facility] [address] [facility] [id number] [address] [place] [address] Aug, Sinusitis J32.9 and Tobacco 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 [facility] [address] [facility] [id number] [address] [place] [address] Aug, [facility] [address] [facility] [id number] [address] [place] [address] Aug, Depressive disorder, not els ewhere classified F32.9 ; Hormone replacement therapy Z79.[address] scan, head R93.0 [place] [address] [facility] [id number] [address] [place] [address] Aug, Major depressive disorder, r ecurrent episode, moderate F33.1 [facility] [address] [facility] [id number] [address] [place] [address] Jul, Major depressive disorder, r ecurrent episode, moderate F33.1 [place] [address] [id number] [address] [place] [address] 17 Jul, 2015 Abdominal pain R10.9 and Hyp ertension I10 [facility] [address] [id number] [address] [place] [address] Jul, [facility] [address] [facility] [id number] [address] [place] [address] Jul, Major depressive disorder, r ecurrent episode, moderate F33.1 [facility] [address] [id number] [address] [place] [address] 04 Jul, 2015 [facility] [address] [id number] [address] [place] [address] Jul, [facility] [address] [facility] [id number] [address] [place] [address] Jun, [facility] [address] [place] [id number] [address] [place] [address] Jun, Depressive disorder, not els ewhere classified F32.9 [facility] [address] [facility] [id number] [address] [place] [address] Jun, [facility] [address] [facility] [id number] [address] [place] [address] Jun, [facility] [address] [facility] [id number] [address] [place] [address] Jun, Arthralgia of hip, unspecifi ed laterality M25.559 ; Bruising, spontaneous R23.3 and Night sweats R61 [facility] [address] [facility] [id number] [address] [place] [address] Jun, [facility] [address] [facility] [id number] [address] [place] [address] Jun, [facility] [address] [facility] [id number] [address] [place] [address] May, [facility] [address] [facility] [id number] [address] [place] [address] May, Myalgia M79.1 and Screening, lipid Z13.220 [facility] [address] [id number] [address] [place] [address] Apr, Status post cervical spinal fusion Z98.1 ; Fibromyalgia M79.7 and Unsteady gait R26.81 [facility] [address] [id number] [address] [place] [address] Nov, [facility] [address] [id number] [address] [place] [address] Nov, [facility] [address] [id number] [address] [place] [address] October, [facility] [address] [id number] [address] [place] [address] October, [facility] [address] [id number] [address] [place] [address] October, [facility] [address] [id number] [address] [place] [address] October, [facility] [address] [id number] [address] [place] [address] October, [facility] [address] [facility] [id number] [address] [place] [address] October, Dysuria 788.1 ; Nausea 787.0 2 and Urinary tract infection 599.0 [facility] [address] [id number] [address] [place] [id number] Sep, [facility] [address] [id number] [address] [place] [id number] Sep, [facility] [address] [id number] [address] [place] [id number] Aug, [facility] [address] [id number] [address] [place] [id number] Aug, [facility] [address] [id number] [facility] [place] [address] 24 Aug, 2014 [facility] [address] [id number] [facility] [place] [address] 24 Aug, 2014 [facility] [address] [id number] [facility] [place] [address] 23 Aug, 2014 [facility] [address] [id number] [address] [place] [address], [place] [address] 19 Aug, 2014 [facility] [address] [id number] [address] [place] [address], [place] [address] 19 Aug, 2014 [facility] [address] [id number] [address] [place] [address], [place] [address] 19 Aug, 2014 [facility] [address] [id number] [address] [place] [address], [place] [address] 19 Aug, 2014 [facility] [address] [id number] [address] [place] [address], [place] [address] 18 Aug, 2014 [facility] [address] [id number] [address] [place] [address], [place] [address] 18 Aug, 2014 [facility] [address] [id number] [address] [place] [address], [place] [address] 13 Aug, 2014 [facility] [address] [id number] [address] [place] [address], [place] [address] 13 Aug, 2014 [facility] [address] [id number] [address] [place] [address], [place] [address] 11 Aug, 2014 [facility] [address] [id number] [address] [place] [address], [place] [address] 11 Aug, 2014 [facility] [address] [id number] [address] [place] [address], [place] [address] 06 Aug, 2014 [facility] [address] [id number] [address] [place] [address], [place] [address] 06 Aug, 2014 [facility] [address] [id number] [address] [place] [address], [place] [address] 05 Aug, 2014 [facility] [address] [id number] [address] [place] [address], [place] [address] 05 Aug, 2014 [facility] [address] [id number] [address] [place] [address], [place] [address] Aug, 2014 [facility] [address] [id number] [address] [place] [address], [place] [address] Aug, [facility] [address] [id number] [address] [place] [address], [place] [address] Aug, [facility] [address] [id number] [address] [place] [address], [place] [address] Jul, 2014 [facility] [address] [id number] [address] [place] [address], [place] [address] Jul, 2014 [facility] [address] [id number] [address] [place] [address], [place] [address] Jul, 2014 [facility] [address] [id number] [address] [place] [address], [place] [address] Jul, 2014 [facility] [address] [id number] [address] [place] [address], [place] [address] Jul, [facility] [address] [id number] [address] [place] [address], [place] [address] Jul, 2014 [facility] [address] [id number] [address] [place] [address], [place] [address] Jul, 2014 [facility] [address] [id number] [address] [place] [address], [place] [address] Jul, 2014 [facility] [address] [id number] [address] [place] [address], [place] [address] Jul, [facility] [address] [id number] [address] [place] [address], [place] [address] Jul, 2014 [facility] [address] [id number] [address] [place] [address], [place] [address] 18 Jul, 2014 [facility] [address] [id number] [address] [place] [address], [place] [address] Jul, 2014 [facility] [address] [id number] [address] [place] [address], [place] [address] Jul, 2014 [facility] [address] [id number] [address] [place] [address], [place] [address] Jul, [facility] [address] [id number] [address] [place] [address], [place] [address] Jun, [facility] [address] [id number] [address] [place] [address], [place] [address] Jun, [facility] [address] [id number] [address] [place] [address], [place] [address] Jun, [facility] [address] [id number] [address] [place] [address], [place] [address] Jun, [facility] [address] [id number] [address] [place] [address], [place] [address] Jun, [facility] [address] [id number] [address] [place] [address], [place] [address] Jun, [facility] [address] [id number] [address] [place] [address], [place] [address] May, [facility] [address] [id number] [address] [place] [address], [place] [address] May, [facility] [address] [id number] [address] [place] [address], [place] [address] May, [facility] [address] [id number] [address] [place] [address], [place] [address] May, [facility] [address] [id number] [address] [place] [address], [place] [address] May, [facility] [address] [id number] [address] [place] [address], [place] [address] May, [facility] [address] [id number] [address] [place] [address], [place] [address] Apr, [facility] [address] [id number] [address] [place] [address], [place] [address] Apr, [facility] [address] [id number] [address] [place] [address], [place] [address] Apr, [facility] [address] [id number] [address] [place] [address], [place] [address] Apr, [facility] [address] [id number] [address] [place] [address], [place] [address] Apr, [facility] [address] [id number] [address] [place] [address], [place] [address] Apr, [facility] [address] [id number] [address] [place] [address], [place] [address] Mar, [facility] [address] [id number] [address] [place] [address], [place] [address] Mar, [facility] [address] [id number] [address] [place] [address] Mar, [facility] [address] [id number] [address] [place] [address] Mar, [facility] [address] [id number] [address] [place] [address] Mar, [facility] [address] [id number] [address] [place] [address] Mar, [facility] [address] [id number] [address] [place] [address] Mar, [facility] [address] [id number] [address] [place] [address] Mar, [facility] [address] [id number] [address] [place] [address] Mar, [facility] [address] [id number] [address] [place] [address] Mar, [facility] [address] [id number] [address] [place] [address] Mar, [facility] [address] [id number] [address] [place] [address], [place] [address] Mar, [facility] [address] [id number] [address] [place] [address], [place] [address] 30 Feb, 2014 [facility] [address] [id number] [address] [place] [address], [place] [address] Feb, [facility] [address] [id number] [address] [place] [address], [place] [address] Feb, [facility] [address] [id number] [address] [place] [address], [place] [address] Feb, [facility] [address] [id number] [address] [place] [address], [place] [address] Feb, [facility] [address] [id number] [address] [place] [address], [place] [address] Feb, [facility] [address] [id number] [address] [place] [address], [place] [address] Feb, [facility] [address] [id number] [address] [place] [address], [place] [address] Jan, [facility] [address] [id number] [address] [place] [address], [place] [address] Jan, [facility] [address] [id number] [address] [place] [address], [place] [address] Jan, [facility] [address] [id number] [address] [place] [address], [place] [address] Dec, [facility] [address] [id number] [address] [place] [address], [place] [address] Dec, [facility] [address] [id number] [address] [place] [address], [place] [address] Dec, [facility] [address] [id number] [address] [place] [address], [place] [address] Dec, [facility] [address] [id number] [facility] [place] [address] Sep, [facility] [address] [id number] [address] [place] [address], [place] [address] Sep, [facility] [address] [id number] [address] [place] [address], [place] [address] Sep, [facility] [address] [id number] [address] [place] [address], [place] [address] Sep, [facility] [address] [id number] [address] [place] [address], [place] [address] Sep, [facility] [address] [id number] [address] [place] [address], [place] [address] Sep, [facility] [address] [id number] [address] [place] [address], [place] [address] Sep, [facility] [address] [id number] [address] [place] [address], [place] [address] Sep, [facility] [address] [id number] [address] [place] [address], [place] [address] Aug, [facility] [address] [id number] [address] [place] [address], [place] [address] Aug, [facility] [address] [id number] [address] [place] [address], [place] [address] May, [facility] [address] [id number] [address] [place] [address], [place] [address] May, [facility] [address] [id number] [address] [place] [address], [place] [address] Apr, [facility] [address] [id number] [address] [place] [address], [place] [address] Apr, [facility] [address] [id number] [address] [place] [address], [place] [address] Apr, [facility] [address] [id number] [address] [place] [address] [address] Apr, [facility] [address] [id number] [address] [place] [address], [place] [address] Apr, [facility] [address] [id number] [address] [place] [address], [place] [address] Apr, [facility] [address] [id number] [address] [place] [address], [place] [address] 18 May, 2012 [facility] [address] [id number] [address] [place] [address], [place] [address] 18 May, 2012 [facility] [address] [id number] [address] [place] [address], [place] [address] 15 May, 2012 [facility] [address] [id number] [address] [place] [address], [place] [address] 15 May, 2012 [facility] [address] [id number] [address] [place] [address], [place] [address] 13 May, 2012 [facility] [address] [id number] [address] [place] [address], [place] [address] 13 May, 2012 [facility] [address] [id number] [address] [place] [address], [place] [address] 13 Apr, 2012 [facility] [address] [id number] [address] [place] [address], [place] [address] 13 Apr, 2012 [facility] [address] [id number] [address] [place] [address], [place] [address] Apr, [facility] [address] [id number] [address] [place] [address], [place] [address] Apr, [facility] [address] [id number] [address] [place] [address], [place] [address] Apr, [facility] [address] [id number] [address] [place] [address], [place] [address] Apr, [facility] [address] [id number] [address] [place] [address], [place] [address] Apr, [facility] [address] [id number] [address] [place] [address], [place] [address] 07 Apr, 2012 [facility] [address] [id number] [address] [place] [address], [place] [address] Apr, [facility] [address] [id number] [address] [place] [address], [place] [address] Apr, [facility] [address] [id number] [address] [place] [address], [place] [address] Mar, [facility] [address] [id number] [address] [place] [address], [place] [address] Mar, [facility] [address] [id number] [address] [place] [address], [place] [address] Mar, [facility] [address] [id number] [address] [place] [address], [place] [address] Mar, [facility] [address] [id number] [address] [place] [address], [place] [address] Mar, [facility] [address] [id number] [address] [place] [address], [place] [address] Mar, [facility] [address] [id number] [address] [place] [address], [place] [address] Mar, [facility] [address] [id number] [address] [place] [address], [place] [address] Mar, [facility] [address] [id number] [address] [place] [address], [place] [address] Mar, [facility] [address] [id number] [address] [place] [address], [place] [address] 25 Feb, 2012 [facility] [address] [id number] [address] [place] [address], [place] [address] 16 Feb, 2012 [facility] [address] [id number] [address] [place] [address], [place] [address] 11 Feb, 2012 [facility] [address] [id number] [address] [place] [address], [place] [address] Jan, [facility] [address] [id number] [address] [place] [address], [place] [address] Jan, [facility] [address] [id number] [address] [place] [address], [place] [address] Jan, [facility] [address] [id number] [address] [place] [address], [place] [address] Jan, [facility] [address] [id number] [address] [place] [address], [place] [address] Jan, [facility] [address] [id number] [address] [place] [address], [place] [address] Jan, [facility] [address] [id number] [address] [place] [address], [place] [address] Jan, [facility] [address] [id number] [address] [place] [address], [place] [address] Jan, [facility] [address] [id number] [address] [place] [address], [place] [address] Jan, [facility] [address] [id number] [address] [place] [address], [place] [address] Jan, [facility] [address] [id number] [address] [place] [address], [place] [address] Dec, [facility] [address] [id number] [address] [place] [address], [place] [address] Dec, [facility] [address] [id number] [address] [place] [address], [place] [address] Dec, [facility] [address] [id number] [address] [place] [address], [place] [address] Dec, [facility] [address] [id number] [address] [place] [address], [place] [address] Nov, [facility] [address] [id number] [address] [place] [address], [place] [address] Nov, [facility] [address] [id number] [address] [place] [address] Nov, [facility] [address] [id number] [address] [place] [address] October, [facility] [address] [id number] [address] [place] [address] October, [facility] [address] [id number] [address] [place] [address] October, [facility] [address] [id number] [address] [place] [address] October, [facility] [address] [id number] [address] [place] [address] October, [facility] [address] [id number] [address] [place] [address] October, [facility] [address] [id number] [address] [place] [address] Aug, [facility] [address] [id number] [address] [place] [address] Mar, [facility] [address] [id number] [address] [place] [address] Nov, [facility] [address] [id number] [address] [place] [address] May, [facility] [address] [id number] [address] [place] [address] May, [facility] [address] [id number] [address] [place] [address] Apr, [facility] [address] [id number] [address] [place] [address] Mar, [facility] [address] [id number] [address] [place] [address] Mar, IMMUNIZATIONS No Known Immunizations SOCIAL HISTORY Never Assessed REASON FOR VISIT PLAN OF CARE VITAL SIGNS Blood pressure systolic 122 mmHg 2014-07-24 Blood pressure diastolic 86 mmHg 2014-07-24 MEDICATIONS Unknown Medications RESULTS No Results PROCEDURES Procedure Date Ordered Result Body Site FOOT ARCH SUPP PREMOLD [id number] EA Jul 24, 2014 INSTRUCTIONS MEDICATIONS ADMINISTERED No Known [...]
--- OUTSIDE RECORDS SUMMARY | 2019-06-19 05:12 | XMS REPORT ---
Author Author Sydnie HANCOCK [facility] Address [address] [place] [address] Care Team Providers Care Olive Pitter Name Role Phone NAHOMY HANCOCK Unavailable PROBLEMS Type Condition ICD9-CM Code AXS54-IS Code Onset Dates Condition S tatus SNOMED Code Problem Age-related osteoporosis without current pathological fracture M81.0 Active 17175618 Problem Sensorineural hearing loss (SNHL) of both ears H90 .3 Active 341384204 Problem Ab[address] CT scan, head R93.0 Active 103605201 Problem Arthralgia of hip, unspecified laterality M25.559 Active 52746765 Problem Bruising, spontaneous R23.3 Active 876945016 Problem Hypertension I10 Active 1980952 3 Problem Night sweats R61 Active 5241509 0 Problem Imbalance R26.89 Active 718789918 Problem Hammer toe of right foot M20.41 Activ e 531121648 Problem Hormone replacement therapy Z79.890 Ac tive 438572829 Problem Bipolar 1 disorder, mixed F31.60 Acti ve 59649060 Problem Gastritis without bleeding, unspecified chronicity, unspecified gastritis type K29.70 Active 638444693 Problem Ataxia R27.0 Active 33257432 Problem Hearing loss, unspecified laterality H91.90 Active 59186318 Problem History of colon polyps Z86.010 Active 414878170 Problem Allergic rhinitis J30.9 Active 61 014338 Problem Hematuria, unspecified type R31.9 Ac tive 58826123 Problem Generalized anxiety disorder F41.1 A ctive 51573858 Problem Major depressive disorder, recurrent episode, moderate F33.1 Active 650826699 Problem Fibromyalgia M79.7 Active 1127936 7 Problem Bladder spasm N32.89 Active 593762 006 Problem Tobacco use disorder F17.200 Active 409298149 Problem Other chronic pain G89.29 Active 8 1465982 Problem Post menopausal syndrome N95.1 Activ e 018616442 Problem Grief F43.20 Active 78863258 Problem Hyperlipidemia, unspecified hyperlipidemia type E7 8.5 Active 31424194 Problem Acute left-sided low back pain with left-sided sciatica M54.42 Active 329289631 Problem Sciatica of left side M54.32 Active 52976195 Problem Plantar wart of right foot B07.0 Act mitchell [id number] Problem Slow transit constipation K59.01 Acti ve [id number] ALLERGIES No Information ENCOUNTERS Encounter Location Date Diagnosis [place] [address] [place] [id number] [place] [phone] Jan, [facility] [address] [address] Dec, [place] [address] [address] Dec, [place] [address] [address] Dec, Bipolar 1 disorder, mixed F3 1.60 [place] [address] [place] [id number] [place] [address] Nov, Bipolar 1 disorder, mixed F3 1.60 [place] [address] [address] Nov, Bipolar 1 disorder, mixed F3 1.60 ; Generalized anxiety disorder F41.1 ; Tobacco use disorder F17.200 and 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.899 [place] [address] [place] [id number] [place] [address] Nov, [facility] [address] [place] [id number] [place] [address] Nov, Bipolar 1 disorder, mixed F3 1.60 [place] [address] [place] [id number] [place] [address] October, Bipolar 1 disorder, mixed F3 1.60 [place] [address] [address] October, Bipolar 1 disorder, mixed F3 1.60 [place] [address] [place] [address] October, [place] [address] [place] [address] October, Bipolar 1 disorder, mixed F3 1.60 ; Generalized anxiety disorder F41.1 and Tobacco use disorder F17.200 [place] [address] [place] [address] Sep, [place] [address] [place] [id number] [place] [address] Sep, [facility] Z[facility].00 ; Major depressive disorder, recurrent episode, moderate F33.1 ; Allergic rhinitis J30.9 ; Bipolar 1 disorder, mixed F31.60 ; Fibromyalgia M79.7 ; Hyperlipidemia, unspecified hyperlipidemia type E78.5 ; Hormone replacement therapy Z79.890 ; Encounter for screening for lung cancer Z12.2 and Tobacco use disorder F17.200 [place] [address] [place] [address] Sep, Bipolar 1 disorder, mixed F3 1.60 [place] [address] [place] [id number] [place] [address] Sep, Other chronic pain G89.29 ; Hyperlipidemia, unspecified hyperlipidemia type E78.5 ; Breast cancer screening Z12.31 and Post menopausal syndrome N95.1 [place] [address] [place] [id number] [place] [id number] Sep, Bipolar 1 disorder, mixed F3 1.60 [place] [address] [place] [id number] [place] [address] Sep, Bipolar 1 disorder, mixed F3 1.60 ; Generalized anxiety disorder F41.1 and Tobacco use disorder F17.200 [place] [address] [place] [id number] [place] [address] Sep, Gastritis without bleeding, unspecified chronicity, unspecified gastritis type K29.70 [place] [address] [facility] [id number] [address] [place] [id number] 08 Sep, 2018 Exercise counseling Z71.82 [place] [address] [facility] [id number] [address] [place] [address] Aug, Exercise counseling Z71.82 [place] [address] [facility] [id number] [address] [place] [address] Aug, Bipolar 1 disorder, mixed F3 1.60 [place] [address] [facility] [id number] [address] [place] [id number] Aug, Exercise counseling Z71.82 [place] [address] [place] [id number] [place] [address] Aug, Bipolar 1 disorder, mixed F3 1.60 [place] [address] [place] [id number] [place] [address] Aug, Gastritis without bleeding, unspecified chronicity, unspecified gastritis type K29.70 ; Tobacco abuse Z72.0 ; Generalized anxiety disorder F41.1 and Weight gain R63.5 [place] [address] [place] [id number] [place] [address] Aug, Bipolar 1 disorder, mixed F3 1.60 ; Generalized anxiety disorder F41.1 and Tobacco use disorder F17.200 [place] [address] [place] [id number] [place] [address] Jul, Bipolar 1 disorder, mixed F3 1.60 [place] [address] [facility] [id number] [address] [place] [phone] Jul, [place] [address] [place] [id number] [place] [address] Jul, Bipolar 1 disorder, mixed F3 1.60 [place] [address] [place] [id number] [place] [id number] 11 Jul, 2018 Allergic rhinitis J30.9 ; Ma darion depressive disorder, recurrent episode, moderate F33.1 and Tobacco 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 [facility] [address] [facility] [id number] [address] [place] [phone] Jun, [facility] [address] [facility] [id number] [address] [place] [phone] Jun, [facility] [address] [facility] [id number] [address] [place] [id number] Jun, Bipolar 1 disorder, mixed F3 1.60 [facility] [address] [facility] [id number] [address] [place] [id number] Jun, Bipolar 1 disorder, mixed F3 1.60 [facility] [address] [facility] [id number] [address] [place] [id number] Jun, Bipolar 1 disorder, mixed F3 1.60 [facility] [address] [facility] [id number] [address] [place] [phone] Jun, Generalized anxiety disorder F41.1 ; Tobacco abuse Z72.0 and Major depressive disorder, recurrent episode, moderate F33.1 [facility] [address] [facility] [id number] [address] [place] [id number] May, Bipolar 1 disorder, mixed F3 1.60 [facility] [address] [facility] [id number] [address] [place] [phone] May, Bipolar 1 disorder, mixed F3 1.60 and Generalized anxiety disorder F41.1 [facility] [address] [facility] [id number] [address] [place] [phone] May, Bipolar 1 disorder, mixed F3 1.60 [facility] [address] [facility] [id number] [address] [place] [phone] May, Allergic rhinitis J30.9 [facility] [address] [facility] [id number] [address] [place] [phone] May, Bipolar 1 disorder, mixed F3 1.60 [facility] [address] [facility] [id number] [address] [place] [phone] May, [facility] [address] [place] [id number] [place] [address] Apr, Allergic rhinitis J30.9 ; Dy sfunction of both eustachian tubes H69.83 ; History of bladder surgery Z98.890 and Cervicalgia M54.2 [facility] [address] [place] [id number] [place] [id number] Mar, Bipolar 1 disorder, mixed F3 1.60 [place] [address] [place] [id number] [place] [address] Mar, [place] [address] [address] Mar, Slow transit constipation K5 9.01 ; Encounter for immunization Z23 and Generalized anxiety disorder F41.1 [place] [address] [place] [id number] [place] [phone] 27 Feb, 2018 Bipolar 1 disorder, mixed F3 1.60 [place] [address] [place] [id number] [place] [id number] 26 Feb, 2018 Allergic rhinitis J30.9 [place] [address] [place] [id number] [place] [address] 24 Feb, 2018 Bipolar 1 disorder, mixed F3 1.60 [place] [address] [place] [id number] [place] [phone] 20 Feb, 2018 Bipolar 1 disorder, mixed F3 1.60 and Generalized anxiety disorder F41.1 [place] [address] [place] [id number] [place] [phone] 13 Feb, 2018 Bipolar 1 disorder, mixed F3 1.60 [place] [address] [place] [id number] [place] [id number] 11 Feb, 2018 Allergic rhinitis J30.9 [facility] [address] [place] [id number] [place] [address] 05 Feb, 2018 [place] [address] [place] [id number] [place] [address] Jan, Bipolar 1 disorder, mixed F3 1.60 [facility] [address] [facility] [id number] [address] [place] [phone] Jan, Low back pain M54.5 ; Hyperl ipidemia, unspecified hyperlipidemia type E78.5 and Bipolar 1 disorder, mixed F31.60 [facility] [address] [facility] [id number] [address] [place] [id number] Jan, Bipolar 1 disorder, mixed F3 1.60 [facility] [address] [facility] [id number] [address] [place] [phone] Jan, Bipolar 1 disorder, mixed F3 1.60 [place] [address] [place] [id number] [place] [address] Jan, Bipolar 1 disorder, mixed F3 1.60 [place] [address] [place] [id number] [place] [phone] Jan, Bipolar 1 disorder, mixed F3 1.60 [facility] [address] [place] [id number] [place] [id number] Dec, Bipolar 1 disorder, mixed F3 1.60 ; Generalized anxiety disorder F41.1 and 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 [id number] [address] [place] [phone] Dec, Bipolar 1 disorder, mixed F3 1.60 [place] [address] [facility] [id number] [address] [place] [address] Dec, Bipolar 1 disorder, mixed F3 1.60 [facility] [address] [place] [id number] [place] [phone] Nov, Bipolar 1 disorder, mixed F3 1.60 [place] [address] [facility] [id number] [address] [place] [phone] Nov, Bipolar 1 disorder, mixed F3 1.60 [facility] [address] [place] [id number] [place] [id number] Nov, Bipolar 1 disorder, mixed F3 1.60 [facility] [address] [facility] [id number] [address] [place] [phone] 11 Nov, 2017 Allergic rhinitis J30.9 [facility] [address] [place] [id number] [place] [phone] Nov, Allergic rhinitis J30.9 [facility] [address] [place] [id number] [place] [phone] Nov, [facility] [address] [address] Nov, Bipolar 1 disorder, mixed F3 1.60 [place] [address] [address] Nov, Fibromyalgia M79.7 and Aller gic rhinitis J30.9 [facility] [address] [place] [address] October, Bipolar 1 disorder, mixed F3 1.60 [facility] [address] [place] [id number] [place] [address] October, Acute nasopharyngitis J00 [facility] [address] [address] October, Bitten or stung by nonvenomo us insect and other nonvenomous arthropods, initial encounter W57.XXXA and Insect bite (nonvenomous) of abdominal wall, initial encounter S30.861A [place] [address] [place] [id number] [place] [address] October, Insect bite (nonvenomous) of abdominal wall, initial encounter S30.861A ; Bitten or stung by nonvenomous insect and other nonvenomous arthropods, initial encounter W57.XXXA ; Allergic rhinitis J30.9 and Low back pain M54.5 [facility] [address] [id number] [address] [place] [phone] October, Bipolar 1 disorder, mixed F3 1.60 [facility] [address] [id number] [address] [place] [id number] October, [facility] [address] [id number] [address] [place] [phone] October, [facility] [address] [id number] [address] [place] [id number] October, Bipolar 1 disorder, mixed F3 1.60 [facility] [address] [id number] [address] [place] [phone] Sep, Bipolar 1 disorder, mixed F3 1.60 [facility] [address] [id number] [address] [place] [address] Sep, Other chronic pain G89.29 [facility] [address] [id number] [address] [place] [phone] Sep, [facility] [address] [id number] [address] [place] [id number] Sep, Bipolar 1 disorder, mixed F3 1.60 [facility] [address] [facility] [id number] [address] [place] [address] Sep, Allergic rhinitis J30.9 and Sciatica of left side M54.32 [facility] [address] [id number] [address] [place] [id number] Sep, Bipolar 1 disorder, mixed F3 1.60 [facility] [address] [id number] [address] [place] [phone] Sep, Bipolar 1 disorder, mixed F3 1.60 and Generalized anxiety disorder F41.1 [facility] [address] [id number] [address] [place] [phone] Aug, [facility] [address] [facility] [id number] [address] [place] [phone] Aug, Bipolar 1 disorder, mixed F3 1.60 [facility] [address] [id number] [address] [place] [phone] Aug, Bipolar 1 disorder, mixed F3 1.60 [facility] [address] [facility] [id number] [address] [place] [phone] Aug, [facility] [address] [facility] [id number] [address] [place] [phone] Aug, Generalized anxiety disorder F41.1 [facility] [address] [id number] [address] [place] [address] Aug, Bipolar 1 disorder, mixed F3 1.60 [facility] [address] [facility] [id number] [address] [place] [address] Aug, Plantar wart of right foot B 07.0 [facility] [address] [facility] [id number] [address] [place] [id number] Aug, Bipolar 1 disorder, mixed F3 1.60 [facility] [address] [facility] [id number] [address] [place] [phone] Jul, Bipolar 1 disorder, mixed F3 1.60 [facility] [address] [facility] [id number] [address] [place] [phone] Jul, [facility] [address] [facility] [id number] [address] [place] [id number] 14 Jul, 2017 Bipolar 1 disorder, mixed F3 1.60 [facility] [address] [facility] [id number] [address] [place] [phone] Jul, Generalized anxiety disorder F41.1 [facility] [address] [facility] [id number] [address] [place] [id number] Jul, Bipolar 1 disorder, mixed F3 1.60 [facility] [address] [facility] [id number] [address] [place] [address] Jul, Acute left-sided low back pa in with left-sided sciatica M54.42 [place] [address] [place] [id number] 05 Jul, 2017 Coccydynia M53.3 [place] [address] [place] [id number] [place] [phone] Jun, Bipolar 1 disorder, mixed F3 1.60 [facility] [place] [id number] [place] [address] Jun, Acute nasopharyngitis J00 [place] [address] [place] [id number] [place] [address] Jun, Bipolar 1 disorder, mixed F3 1.60 [place] [address] [address] Jun, Fibromyalgia M79.7 [place] [address] [address] Jun, Bipolar 1 disorder, mixed F3 1.60 [place] [address] [address] Jun, Fibromyalgia M79.7 and Bipol ar 1 disorder, mixed F31.60 [place] [address] [address] May, Bipolar 1 disorder, mixed F3 1.60 ; Generalized anxiety disorder F41.1 and 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.899 [place] [address] [place] [address] May, Bipolar 1 disorder, mixed F3 1.60 [facility] N [address] [place] [address] 14 May, 2017 Cough R05 and Body aches R52 [facility] [place] [address] [place] [id number] [place] [phone] 10 May, 2017 Bladder spasm N32.89 and Acu te cystitis without hematuria N30.00 [place] [address] [address] 07 May, 2017 Bipolar 1 disorder, mixed F3 1.60 [facility] [address] [place] [id number] 30 Apr, 2017 [facility] [address] [address] Apr, Major depressive disorder, r ecurrent episode, moderate F33.1 and Encounter for immunization Z23 [facility] [address] [address] 29 Apr, 2017 Bipolar 1 disorder, mixed F3 1.60 [place] [address] [place] [id number] Apr, Bipolar 1 disorder, mixed F3 1.60 [place] [address] [address] 16 Apr, 2017 Bipolar 1 disorder, mixed F3 1.60 [facility] [address] [address] 13 Apr, 2017 Yeast vaginitis B37.3 [place] [address] [address] 09 Apr, 2017 Bipolar 1 disorder, mixed F3 1.60 [facility] [address] [address] 07 Apr, 2017 Cellulitis L03[address] for immunization Z23 [facility] [address] [address] 02 Apr, 2017 Bipolar 1 disorder, mixed F3 1.60 [facility] [address] [address] Mar, Bipolar 1 disorder, mixed F3 1.60 [place] [address] [address] Mar, Bipolar 1 disorder, mixed F3 1.60 [facility] [address] [place] [address] Mar, Imbalance R26.[address] for immunization Z23 [place] [address] [place] [id number] Mar, Generalized anxiety disorder F41.1 [place] [address] [address] Mar, Bipolar 1 disorder, mixed F3 1.60 [place] [address] [address] Mar, Generalized anxiety disorder F41.1 [place] [address] [place] [id number] Mar, Bipolar 1 disorder, mixed F3 1.60 [place] [address] [address] Mar, Bipolar 1 disorder, mixed F3 1.60 [place] [address] [address] Feb, Bipolar 1 disorder, mixed F3 1.60 [place] [address] [address] Feb, Bipolar 1 disorder, mixed F3 1.60 and Generalized anxiety disorder F41.1 [place] [address] [address] Feb, Gastritis without bleeding, unspecified chronicity, unspecified gastritis type K29.70 ; Hammer toe of right foot M20.41 and Other viral warts B07.8 [place] [address] [address] 20 Feb, 2017 Bipolar 1 disorder, mixed F3 1.60 [place] [address] [address] 13 Feb, 2017 Bipolar 1 disorder, mixed F3 1.60 [place] [address] [address] 05 Feb, 2017 Bipolar 1 disorder, mixed F3 1.60 [facility] [address] [facility] [id number] [address] [place] [id number] 31 Jan, 2017 Encounter for screening mamm ogram for breast cancer Z12.31 ; Other viral warts B07.8 and Allergic rhinitis J30.9 [facility] [address] [facility] [id number] [address] [place] [id number] Jan, Bipolar 1 disorder, mixed F3 1.60 [facility] [address] [facility] [id number] [address] [place] [id number] Jan, Bipolar 1 disorder, mixed F3 1.60 [place] [address] [facility] [id number] [address] [place] [phone] Jan, [place] [address] [id number] [address] [place] [address] Jan, Bipolar 1 disorder, mixed F3 1.60 [place] [address] [facility] [id number] [address] [place] [phone] Jan, Bipolar 1 disorder, mixed F3 1.60 [place] [address] [facility] [id number] [address] [place] [phone] Jan, Allergic rhinitis J30.9 ; He maturia R31.9 and Colon cancer screening Z12.11 [facility] [address] [facility] [id number] [address] [place] [phone] Dec, Bipolar 1 disorder, mixed F3 1.60 [facility] [address] [id number] [address] [place] [id number] 18 Dec, 2016 Bipolar 1 disorder, mixed F3 1.60 ; Generalized anxiety disorder F41.1 and 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.899 [facility] [address] [facility] [id number] [address] [place] [phone] Dec, Bipolar 1 disorder, mixed F3 1.60 [facility] [address] [place] [id number] [address] [place] [phone] Dec, Bipolar 1 disorder, mixed F3 1.60 [facility] [address] [id number] [address] [place] [phone] Dec, Bipolar 1 disorder, mixed F3 1.60 [facility] [address] [id number] [address] [place] [phone] Dec, Low back pain M54.5 and Recu rrent urinary tract infection N39.0 [facility] [address] [id number] [address] [place] [phone] Nov, Bipolar 1 disorder, mixed F3 1.60 [facility] [address] [id number] [address] [place] [phone] Nov, Bipolar 1 disorder, mixed F3 1.60 [facility] [address] [id number] [address] [place] [id number] Nov, Bipolar 1 disorder, mixed F3 1.60 [facility] [address] [id number] [address] [place] [phone] Nov, Bipolar 1 disorder, mixed F3 1.60 [facility] [address] [facility] [id number] [address] [place] [phone] Nov, [facility] [address] [id number] [address] [place] [phone] Nov, Anesthesia of skin R20.0 ; F requent UTI N39.0 ; Tobacco abuse Z72.0 and Colon cancer screening Z12.11 [facility] [address] [facility] [id number] [address] [place] [phone] Nov, Bipolar 1 disorder, mixed F3 1.60 [facility] [address] [id number] [address] [place] [phone] October, Bipolar 1 disorder, mixed F3 1.60 [facility] [address] [facility] [id number] [address] [place] [phone] October, Bipolar 1 disorder, mixed F3 1.60 [facility] [address] [facility] [id number] [address] [place] [phone] October, Bipolar 1 disorder, mixed F3 1.60 [place] [address] [address] October, Bipolar 1 disorder, mixed F3 1.60 [place] [address] [address] October, Bipolar 1 disorder, mixed F3 1.60 [place] [address] [address] October, Cervicalgia M54.2 and Bipola r 1 disorder, mixed F31.60 [place] [address] [address] October, Hypertension I10 ; Hyperlipi demia, unspecified hyperlipidemia type E78.5 and Family history of thyroid disease Z83.49 [place] [address] [address] October, [place] [address] [address] October, Hypertension I10 ; Hyperlipi demia, unspecified hyperlipidemia type E78.5 and Family history of thyroid problem Z83.49 [place] [address] [address] October, Bipolar 1 disorder, mixed F3 1.60 [place] [address] [address] Sep, Bipolar 1 disorder, mixed F3 1.60 [place] [address] [place] [id number] [place] [address] Sep, Bipolar 1 disorder, mixed F3 1.60 [place] [address] [address] Sep, Bipolar 1 disorder, mixed F3 1.60 [place] [address] [address] Sep, History of colon polyps Z86. 010 and Hematochezia K92.1 [facility] [address] [place] [address] Sep, Major depressive disorder, r ecurrent episode, moderate F33.1 [facility] [address] [place] [id number] [address] [place] [phone] Sep, Bipolar 1 disorder, mixed F3 1.60 [facility] [address] [place] [id number] [address] [place] [phone] Aug, Hot flashes due to menopause N95.1 [facility] [address] [place] [id number] [place] [address] Aug, Bipolar 1 disorder, mixed F3 1.60 [facility] [address] [address] Aug, [facility] [address] [address] Aug, Bipolar 1 disorder, mixed F3 1.60 [facility] [address] [address] Aug, Bipolar 1 disorder, mixed F3 1.60 [facility] [address] [place] [id number] [place] [address] Aug, Hot flashes due to menopause N95.1 ; Cervicalgia M54.2 and Ataxia R27.0 [facility] [address] [place] [id number] [address] [place] [phone] Jul, Bipolar 1 disorder, mixed F3 1.60 [facility] [address] [place] [id number] [address] [place] [address] Jul, Bipolar 1 disorder, mixed F3 1.60 [facility] [address] [place] [id number] [address] [place] [phone] Jul, Bipolar 1 disorder, mixed F3 1.60 [facility] [address] [address] 13 Jul, 2016 Bipolar 1 disorder, mixed F3 1.60 [place] [address] [place] [id number] 10 Jul, 2016 Bipolar 1 disorder, mixed F3 1.60 [place] [address] 08 Jul, 2016 Cervicalgia M54.2 ; Tremor R 25.1 ; Hearing abnormally acute, unspecified laterality H93.239 ; Alopecia L65.9 ; Encounter for immunization Z23 and Family history of thyroid disease Z83.49 [place] [address] 06 Jul, 2016 Bipolar 1 disorder, mixed F3 1.60 [place] [address] [place] [id number] Jun, [place] [address] [place] [id number] Jun, Hearing disorder, unspecifie d laterality H93.299 [place] [address] [place] [id number] Jun, Bipolar 1 disorder, mixed F3 1.60 [place] [address] [address] Jun, Bipolar 1 disorder, mixed F3 1.60 [place] [address] [address] Jun, Allergic rhinitis J30.9 [place] [address] [address] Jun, Bipolar 1 disorder, mixed F3 1.60 [place] [address] [place] [id number] Jun, Bipolar 1 disorder, mixed F3 1.60 [place] [address] [address] Jun, Allergic rhinitis J30.9 [facility] [address] [facility] [id number] [address] [place] [address] Jun, Allergic rhinitis J30.9 [facility] [address] [facility] [id number] [address] [place] [address] Jun, Bipolar 1 disorder, mixed F3 1.60 [facility] [address] [facility] [id number] [address] [place] [phone] May, Bipolar 1 disorder, mixed F3 1.60 [facility] [address] [id number] [address] [place] [phone] May, Bipolar 1 disorder, mixed F3 1.60 [facility] [address] [facility] [id number] [address] [place] [phone] May, [facility] [address] [facility] [id number] [address] [place] [phone] May, Bipolar 1 disorder, mixed F3 1.60 [facility] [address] [facility] [id number] [address] [place] [phone] May, Bipolar 1 disorder, mixed F3 1.60 [facility] [address] [facility] [id number] [address] [place] [phone] May, [facility] [address] [facility] [id number] [address] [place] [phone] May, [facility] [address] [facility] [id number] [address] [place] [phone] May, [facility] [address] [facility] [id number] [address] [place] [phone] May, Abdominal pain, unspecified location R10.9 [facility] [address] [facility] [id number] [address] [place] [phone] May, [facility] [address] [facility] [id number] [address] [place] [address] Apr, Hematuria R31.9 ; Ataxia R27 .0 and Hearing loss, unspecified laterality H91.90 [facility] [address] [place] [id number] [address] [place] [address] Apr, Bipolar 1 disorder, mixed F3 1.60 [facility] [address] [address] 11 Apr, 2016 Acute effusion of both middl e ears H65.193 [facility] [address] [address] 10 Apr, 2016 Hematuria R31.9 and Pyelonep hritis N12 [facility] [address] [address] Apr, [place] [address] [address] Mar, Bipolar 1 disorder, mixed F3 1.60 [facility] [address] [address] Mar, [facility] [address] [address] Mar, Bipolar 1 disorder, mixed F3 1.60 [place] [address] [address] Mar, Bipolar 1 disorder, mixed F3 1.60 [facility] [address] [address] Mar, Encounter for immunization Z 23 and Gastritis without bleeding, unspecified chronicity, unspecified gastritis type K29.70 [facility] [address] [address] Mar, Bipolar 1 disorder, mixed F3 1.60 and Grief F43.20 [place] [address] [address] Mar, Gastritis without bleeding, unspecified chronicity, unspecified gastritis type K29.70 [place] [address] [address] Mar, Bipolar 1 disorder, mixed F3 1.60 [place] [address] [facility] [id number] [address] [place], [place] [id number] Mar, Gastritis without bleeding, unspecified chronicity, unspecified gastritis type K29.70 [facility] [address] [facility] [id number] [address] [place] [address] Mar, [place] [address] [place] [id number] [address] [place], [place] [id number] Feb, Bipolar 1 disorder, mixed F3 1.60 [place] [address] [place] [id number] [address] [place], [place] [id number] Feb, Bipolar 1 disorder, mixed F3 1.60 and Grief F43.20 [place] [address] [place] [id number] [address] [place] [address] Feb, Gastritis without bleeding, unspecified chronicity, unspecified gastritis type K29.70 [place] [address] [place] [id number] [address] [place] [id number] 14 Feb, 2016 Bipolar 1 disorder, mixed F3 1.60 [facility] [address] [place] [id number] [address] [place] [address] Feb, Gastroesophageal reflux dise ase, esophagitis presence not specified K21.9 [facility] [address] [place] [id number] [address] [place] [id number] Jan, Bipolar 1 disorder, mixed F3 1.60 [place] [address] [place] [id number] [address] [place] [phone] Jan, Bipolar 1 disorder, mixed F3 1.60 and Unsteady gait R26.81 [place] [address] [place] [id number] [address] [place] [address] Jan, Bipolar 1 disorder, mixed F3 1.60 [facility] [address] [place] [id number] [address] [place] [address] Jan, Bipolar 1 disorder, mixed F3 1.60 and 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.899 [facility] [address] [facility] [id number] [address] [place] [address] Jan, Bipolar 1 disorder, mixed F3 1.60 [facility] [address] [facility] [id number] [address] [place] [phone] Jan, Bipolar 1 disorder, mixed F3 1.60 [place] [address] [place] [id number] [address] [place] [address] Jan, Bipolar 1 disorder, mixed F3 1.60 ; Grief F43.20 and 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.899 [place] [address] [place] [id number] [address] [place] [address] Jan, Bipolar 1 disorder, mixed F3 1.60 [place] [address] [place] [id number] [address] [place] [address] Dec, [place] [address] [place] [id number] [address] [place] [address] Dec, Bipolar 1 disorder, mixed F3 1.60 ; Vitamin D deficiency, unspecified E55.9 ; H/O allergic rhinitis Z87.09 ; Other chronic pain G89.29 and Dorsalgia, unspecified M54.9 [place] [address] [place] [id number] [address] [place] [address] Dec, [place] [address] [place] [id number] [address] [place] [id number] Dec, Bipolar 1 disorder, mixed F3 1.60 [place] [address] [place] [id number] [address] [place] [address] Dec, Major depressive disorder, r ecurrent episode, moderate F33.1 [place] [address] [place] [id number] [address] [place] [address] Dec, Major depressive disorder, r ecurrent episode, moderate F33.1 [place] [address] [place] [id number] [address] [place] [address] Nov, [facility] [address] [facility] [id number] [address] [place] [address] Nov, Bipolar 1 disorder, mixed F3 1.60 [place] [address] [facility] [id number] [address] [place] [address] Nov, Major depressive disorder, r ecurrent episode, moderate F33.1 [place] [address] [place] [id number] [address] [place] [address] Nov, Cervicalgia M54.2 ; Arthralg ia of hip, unspecified laterality M25.559 ; Allergic rhinitis J30.9 and Hormone replacement therapy Z79.890 [facility] [address] [facility] [id number] [address] [place] [address] Nov, Other seasonal allergic rhin itis J30.2 [place] [address] [facility] [id number] [address] [place] [id number] October, Major depressive disorder, r ecurrent episode, moderate F33.1 [place] [address] [place] [id number] [address] [place] [address] October, Major depressive disorder, r ecurrent episode, moderate F33.1 and Arthralgia of hip, unspecified laterality M25.559 [place] [address] [place] [id number] [address] [place] [address] October, Grief F43.20 ; Hypertension I10 ; Hyperlipidemia, unspecified hyperlipidemia type E78.5 ; Other chronic pain G89.29 and Allergic rhinitis, unspecified allergic rhinitis type J30.9 [place] [address] [facility] [id number] [address] [place] [phone] October, Major depressive disorder, r ecurrent episode, moderate F33.1 [place] [address] [facility] [id number] [address] [place] [phone] Sep, Major depressive disorder, r ecurrent episode, moderate F33.1 [place] [address] [place] [id number] [address] [place] [phone] Sep, [facility] [address] [facility] [id number] [address] [place] [phone] Sep, Major depressive disorder, r ecurrent episode, moderate F33.1 [facility] [address] [facility] [facility] [id number] [address] [place] [address] Sep, Grief F43.20 [facility] [address] [place] [id number] [address] [place] [address] Aug, Major depressive disorder, r ecurrent episode, moderate F33.1 [place] [address] [place] [id number] [address] [place] [address] Aug, Bipolar 1 disorder, mixed F3 1.60 [place] [address] [place] [id number] [address] [place] [address] Aug, Allergic rhinitis J30.9 ; Ce rvicalgia M54.2 and Low back pain M54.5 [place] [address] [place] [id number] [address] [place] [address] Aug, Major depressive disorder, r ecurrent episode, moderate F33.1 [facility] [address] [place] [id number] [address] [place] [address] Aug, Sinusitis J32.9 and Tobacco 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 [facility] [address] [place] [id number] [address] [place] [address] Aug, [facility] [address] [place] [address] Aug, Depressive disorder, not els ewhere classified F32.9 ; Hormone replacement therapy Z79.[address] scan, head R93.0 [place] [address] [place] [id number] [address] [place] [address] Aug, Major depressive disorder, r ecurrent episode, moderate F33.1 [facility] [address] [place] [id number] [address] [place] [address] Jul, Major depressive disorder, r ecurrent episode, moderate F33.1 [facility] [address] [facility] [facility] [id number] [address] [place] [address] Jul, Abdominal pain R10.9 and Hyp ertension I10 [facility] [address] [facility] [facility] [id number] [address] [place] [phone] Jul, [facility] [address] [place] [id number] [place] [address] Jul, Major depressive disorder, r ecurrent episode, moderate F33.1 [facility] [address] [facility] [facility] [id number] [address] [place] [phone] Jul, [facility] [address] [place] [id number] [address] [place] [id number] Jul, [facility] [address] [place] [id number] [address] [place] [address] Jun, [facility] [address] [place] [id number] [address] [place] [address] Jun, Depressive disorder, not els ewhere classified F32.9 [facility] [address] [facility] [facility] [id number] [address] [place] [address] Jun, [facility] [address] [place] [address] Jun, [facility] [address] [place] [address] Jun, Arthralgia of hip, unspecifi ed laterality M25.559 ; Bruising, spontaneous R23.3 and Night sweats R61 [facility] [address] [facility] [id number] [address] [place] [phone] Jun, [facility] [address] [facility] [id number] [address] [place] [id number] Jun, [facility] [address] [place] [id number] [address] [place] [id number] May, [facility] [address] [facility] [id number] [address] [place] [id number] May, Myalgia M79.1 and Screening, lipid Z13.220 [facility] [address] [id number] [address] [place] [id number] Apr, Status post cervical spinal fusion Z98.1 ; Fibromyalgia M79.7 and Unsteady gait R26.81 [facility] [address] [id number] [address] [place] [id number] Nov, [facility] [address] [id number] [address] [place] [id number] Nov, [facility] [address] [id number] [address] [place] [id number] October, [facility] [address] [facility] [id number] [address] [place] [id number] October, [facility] [address] [facility] [id number] [address] [place] [phone] October, [facility] [address] [facility] [id number] [address] [place] [id number] October, [facility] [address] [facility] [id number] [address] [place] [phone] October, [facility] [address] [facility] [id number] [address] [place] [id number] October, Dysuria 788.1 ; Nausea 787.0 2 and Urinary tract infection 599.0 [facility] [address] [facility] [id number] [address] [place] [id number] Sep, [facility] [address] [facility] [id number] [address] [place] [phone] Sep, [facility] [address] [facility] [id number] [address] [place] [id number] Aug, [facility] [address] [facility] [id number] [address] [place] [id number] 25 Aug, 2014 [facility] [address] [id number] [address] [place] [address], [place] [id number] 24 Aug, 2014 [facility] [address] [id number] [address] [place] [address], [place] [id number] 24 Aug, 2014 [facility] [address] [id number] [address] [place] [address], [place] [id number] 23 Aug, 2014 [facility] [address] [id number] [address] [place] [address], [place] [address] 19 Aug, 2014 [facility] [address] [id number] [address] [place] [address], [place] [address] 19 Aug, 2014 [facility] [address] [id number] [address] [place] [address], [place] [address] 19 Aug, 2014 [facility] [address] [id number] [address] [place] [address], [place] [address] 19 Aug, 2014 [facility] [address] [id number] [address] [place] [address], [place] [address] 18 Aug, 2014 [facility] [address] [id number] [address] [place] [address], [place] [address] 18 Aug, 2014 [facility] [address] [id number] [address] [place] [address], [place] [address] 13 Aug, 2014 [facility] [address] [id number] [address] [place] [address], [place] [address] 13 Aug, 2014 [facility] [address] [id number] [address] [place] [address], [place] [address] 11 Aug, 2014 [facility] [address] [id number] [address] [place] [address], [place] [address] 11 Aug, 2014 [facility] [address] [id number] [address] [place] [address], [place] [address] 06 Aug, 2014 [facility] [address] [id number] [address] [place] [address], [place] [address] 06 Aug, 2014 [facility] [address] [id number] [address] [place] [address], [place] [address] 05 Aug, 2014 [facility] [address] [id number] [address] [place] [address], [place] [address] 05 Aug, 2014 [facility] [address] [id number] [address] [place] [address], [place] [address] Aug, 2014 [facility] [address] [id number] [address] [place] [address], [place] [address] Aug, 2014 [facility] [address] [id number] [address] [place] [address], [place] [address] Aug, [facility] [address] [id number] [address] [place] [address], [place] [address] Jul, 2014 [facility] [address] [id number] [address] [place] [address], [place] [address] Jul, 2014 [facility] [address] [id number] [address] [place] [address], [place] [address] Jul, 2014 [facility] [address] [id number] [address] [place] [address], [place] [address] Jul, [facility] [address] [id number] [address] [place] [address], [place] [address] Jul, [facility] [address] [id number] [address] [place] [address], [place] [address] Jul, [facility] [address] [id number] [address] [place] [address], [place] [address] Jul, 2014 [facility] [address] [id number] [address] [place] [address], [place] [address] Jul, 2014 [facility] [address] [id number] [address] [place] [address], [place] [address] Jul, 2014 [facility] [address] [id number] [address] [place] [address], [place] [address] Jul, 2014 [facility] [address] [id number] [address] [place] [address], [place] [address] Jul, 2014 [facility] [address] [id number] [address] [place] [address], [place] [address] Jul, 2014 [facility] [address] [id number] [address] [place] [address], [place] [address] Jul, 2014 [facility] [address] [id number] [address] [place] [address], [place] [address] Jul, [facility] [address] [id number] [address] [place] [address], [place] [address] Jun, [facility] [address] [id number] [address] [place] [address], [place] [address] Jun, [facility] [address] [id number] [address] [place] [address], [place] [address] Jun, [facility] [address] [id number] [address] [place] [address], [place] [address] Jun, [facility] [address] [id number] [address] [place] [address], [place] [address] Jun, [facility] [address] [id number] [address] [place] [address], [place] [address] Jun, [facility] [address] [id number] [address] [place] [address], [place] [address] May, [facility] [address] [id number] [address] [place] [address], [place] [address] May, [facility] [address] [id number] [address] [place] [address], [place] [address] May, [facility] [address] [id number] [address] [place] [address], [place] [address] May, [facility] [address] [id number] [address] [place] [address], [place] [address] May, [facility] [address] [id number] [address] [place] [address], [place] [address] May, [facility] [address] [id number] [address] [place] [address], [place] [address] Apr, [facility] [address] [id number] [address] [place] [address], [place] [address] Apr, [facility] [address] [id number] [address] [place] [address], [place] [address] Apr, [facility] [address] [id number] [address] [place] [address], [place] [address] Apr, [facility] [address] [id number] [address] [place] [address], [place] [address] Apr, [facility] [address] [id number] [address] [place] [address], [place] [address] Apr, [facility] [address] [id number] [address] [place] [address], [place] [address] Mar, [facility] [address] [id number] [address] [place] [address], [place] [address] Mar, [facility] [address] [id number] [address] [place] [address], [place] [address] Mar, [facility] [address] [id number] [address] [place] [address] Mar, [facility] [address] [id number] [address] [place] [address] Mar, [facility] [address] [id number] [address] [place] [address] Mar, [facility] [address] [id number] [address] [place] [address] Mar, [facility] [address] [id number] [address] [place] [address] Mar, [facility] [address] [id number] [address] [place] [address] Mar, [facility] [address] [id number] [address] [place] [address] Mar, [facility] [address] [id number] [address] [place] [address], [place] [address] Mar, [facility] [address] [id number] [address] [place] [address], [place] [address] Mar, [facility] [address] [id number] [address] [place] [address], [place] [address] 30 Feb, 2014 [facility] [address] [id number] [address] [place] [address], [place] [address] Feb, [facility] [address] [id number] [address] [place] [address], [place] [address] Feb, [facility] [address] [id number] [address] [place] [address], [place] [address] Feb, [facility] [address] [id number] [address] [place] [address], [place] [address] Feb, [facility] [address] [id number] [address] [place] [address], [place] [address] Feb, [facility] [address] [id number] [address] [place] [address], [place] [address] Feb, [facility] [address] [id number] [address] [place] [address], [place] [address] Jan, [facility] [address] [id number] [address] [place] [address], [place] [address] Jan, [facility] [address] [id number] [address] [place] [address], [place] [address] Jan, [facility] [address] [id number] [address] [place] [address], [place] [address] Dec, [facility] [address] [id number] [address] [place] [address], [place] [address] Dec, [facility] [address] [id number] [address] [place] [address], [place] [address] Dec, [facility] [address] [id number] [address] [place] [address], [place] [address] Dec, [facility] [address] [id number] [address] [place] [address], [place] [address] Sep, [facility] [address] [id number] [address] [place] [address], [place] [address] Sep, [facility] [address] [id number] [address] [place] [address], [place] [address] Sep, [facility] [address] [id number] [address] [place] [address], [place] [address] Sep, [facility] [address] [id number] [address] [place] [address], [place] [address] Sep, [facility] [address] [id number] [address] [place] [address], [place] [address] Sep, [facility] [address] [id number] [address] [place] [address], [place] [address] Sep, [facility] [address] [id number] [address] [place] [address], [place] [address] Sep, [facility] [address] [id number] [address] [place] [address], [place] [address] Aug, [facility] [address] [id number] [address] [place] [address], [place] [address] Aug, [facility] [address] [id number] [address] [place] [address], [place] [address] May, [facility] [address] [id number] [address] [place] [address], [place] [address] May, [facility] [address] [id number] [address] [place] [address], [place] [address] Apr, [facility] [address] [id number] [address] [place] [address], [place] [address] Apr, [facility] [address] [id number] [address] [place] [address], [place] [address] Apr, [facility] [address] [id number] [address] [place] [address], [place] [address] Apr, [facility] [address] [id number] [address] [place] [address], [place] [address] Apr, [facility] [address] [id number] [address] [place] [address], [place] [address] Apr, [facility] [address] [id number] [address] [place] [address], [place] [address] May, [facility] [address] [id number] [address] [place] [address], [place] [address] 18 May, 2012 [facility] [address] [id number] [address] [place] [address], [place] [address] 15 May, 2012 [facility] [address] [id number] [address] [place] [address], [place] [address] May, [facility] [address] [id number] [address] [place] [address], [place] [address] May, [facility] [address] [id number] [address] [place] [address], [place] [address] May, [facility] [address] [id number] [address] [place] [address], [place] [address] Apr, [facility] [address] [id number] [address] [place] [address], [place] [address] Apr, [facility] [address] [id number] [address] [place] [address], [place] [address] Apr, [facility] [address] [id number] [address] [place] [address], [place] [address] Apr, [facility] [address] [id number] [address] [place] [address], [place] [address] Apr, [facility] [address] [id number] [address] [place] [address], [place] [address] Apr, [facility] [address] [id number] [address] [place] [address], [place] [address] 07 Apr, 2012 [facility] [address] [id number] [address] [place] [address], [place] [address] Apr, [facility] [address] [id number] [address] [place] [address], [place] [address] Apr, [facility] [address] [id number] [address] [place] [address], [place] [address] Apr, [facility] [address] [id number] [address] [place] [address], [place] [address] Mar, [facility] [address] [id number] [address] [place] [address], [place] [address] Mar, [facility] [address] [id number] [address] [place] [address], [place] [address] Mar, [facility] [address] [id number] [address] [place] [address], [place] [address] Mar, [facility] [address] [id number] [address] [place] [address], [place] [address] Mar, [facility] [address] [id number] [address] [place] [address], [place] [address] Mar, [facility] [address] [id number] [address] [place] [address], [place] [address] Mar, [facility] [address] [id number] [address] [place] [address], [place] [address] Mar, [facility] [address] [id number] [address] [place] [address], [place] [address] Mar, [facility] [address] [id number] [address] [place] [address], [place] [address] 25 Feb, 2012 [facility] [address] [id number] [address] [place] [address], [place] [address] 16 Sep2011 [facility] [address] [id number] [address] [place] [address], [place] [address] 11 Feb, 2012 [facility] [address] [id number] [facility] [place] [address] Jan, [facility] [address] [id number] [address] [place] [address], [place] [address] Jan, [facility] [address] [id number] [address] [place] [address], [place] [address] Jan, [facility] [address] [id number] [address] [place] [address], [place] [address] Jan, [facility] [address] [id number] [address] [place] [address], [place] [address] Jan, [facility] [address] [id number] [address] [place] [address], [place] [address] Jan, [facility] [address] [id number] [address] [place] [address], [place] [address] Jan, [facility] [address] [id number] [address] [place] [address], [place] [address] Jan, [facility] [address] [id number] [address] [place] [address], [place] [address] Jan, [facility] [address] [id number] [address] [place] [address], [place] [address] Jan, [facility] [address] [id number] [address] [place] [address], [place] [address] Dec, [facility] [address] [id number] [address] [place] [address], [place] [address] Dec, [facility] [address] [id number] [address] [place] [address], [place] [address] Dec, [facility] [address] [id number] [address] [place] [address], [place] [address] Dec, [facility] [address] [id number] [address] [place] [address], [place] [address] Nov, [facility] [address] [id number] [address] [place] [address], [place] [address] 08 Nov, 2011 [facility] [address] [id number] [address] [place] [address] Nov, [facility] [address] [id number] [address] [place] [address] October, [facility] [address] [id number] [address] [place] [address] October, [facility] [address] [id number] [address] [place] [address] October, [facility] [address] [id number] [address] [place] [address] October, [facility] [address] [id number] [address] [place] [address] October, [facility] [address] [id number] [address] [place] [address] October, [facility] [address] [id number] [address] [place] [address] Aug, [facility] [address] [id number] [address] [place] [address] Mar, [facility] [address] [id number] [address] [place] [address] Nov, [facility] [address] [id number] [address] [place] [address] May, [facility] [address] [id number] [address] [place] [address] May, [facility] [address] [id number] [address] [place] [address] Apr, [facility] [address] [id number] [address] [place] [address] Mar, [facility] [address] [id number] [address] [place] [address] Mar, IMMUNIZATIONS No Known Immunizations SOCIAL HISTORY Never Assessed REASON FOR VISIT PLAN OF CARE VITAL SIGNS Height 64 in 2014-09-09 Weight 144.25 lbs 2014-09-09 Temperature 97.9 degrees Fahrenheit 2014-09-09 Heart Rate 80 bpm 2014-09-09 Respiratory Rate 18 2014-09-09 Blood pressure systolic 118 mmHg 2014-09-09 Blood pressure diastolic 76 mmHg 2014-09-09 MEDICATIONS Unknown Medications RESULTS No Results PROCEDURES No Known procedures INSTRUCTIONS MEDICATIONS ADMINISTERED No Known Medications MEDICAL (GENERAL) HISTORY Type Description Date Medical History Severe spinal stenosis [facility] cervical spine CT and MRI done [...]
--- OUTSIDE RECORDS SUMMARY | 2019-06-19 05:12 | XMS REPORT ---
Author Author Sydnie Ferrara Organization [facility] Address [address] [place] [address] Care Team Providers Care Tray Filler Name Role Phone LINDSAY Ferrara Unavailable PROBLEMS Type Condition ICD9-CM Code UIM12-QG Code Onset Dates Condition S tatus SNOMED Code Problem Age-related osteoporosis without current pathological fracture M81.0 Active 89048371 Problem Sensorineural hearing loss (SNHL) of both ears H90 .3 Active 472389155 Problem Abnormal CT scan, head R93.0 Active 392891343 Problem Arthralgia of hip, unspecified laterality M25.559 Active 30953235 Problem Bruising, spontaneous R23.3 Active 977539945 Problem Hypertension I10 Active 7702566 3 Problem Night sweats R61 Active 1996958 0 Problem Imbalance R26.89 Active 077366994 Problem Hammer toe of right foot M20.41 Activ e 832360068 Problem Hormone replacement therapy Z79.890 Ac tive 713690096 Problem Bipolar 1 disorder, mixed F31.60 Acti ve 67194062 Problem Gastritis without bleeding, unspecified chronicity, unspecified gastritis type K29.70 Active 406628945 Problem Ataxia R27.0 Active 62046802 Problem Hearing loss, unspecified laterality H91.90 Active 86281058 Problem History of colon polyps Z86.010 Active 920006183 Problem Allergic rhinitis J30.9 Active 61 666342 Problem Hematuria, unspecified type R31.9 Ac tive 32175403 Problem Generalized anxiety disorder F41.1 A ctive 77941060 Problem Major depressive disorder, recurrent episode, moderate F33.1 Active 321916823 Problem Fibromyalgia M79.7 Active 2879233 7 Problem Bladder spasm N32.89 Active 373667 006 Problem Tobacco use disorder F17.200 Active 182797597 Problem Other chronic pain G89.29 Active 8 4179306 Problem Post menopausal syndrome N95.1 Activ e 069891437 Problem Grief F43.20 Active 79993258 Problem Hyperlipidemia, unspecified hyperlipidemia type E7 8.5 Active 76764828 Problem Acute left-sided low back pain with left-sided sciatica M54.42 Active 519712765 Problem Sciatica of left side M54.32 Active 81340122 Problem Plantar wart of right foot B07.0 Act mitchell [id number] Problem Slow transit constipation K59.01 Acti ve 63982708 ALLERGIES No Information ENCOUNTERS Encounter Location Date Diagnosis [place] [address] [address] Jan, [place] [address] [address] Dec, [place] [address] [address] Dec, [place] [address] [address] Dec, Bipolar 1 disorder, mixed F3 1.60 [place] [address] [address] Nov, Bipolar 1 disorder, mixed F3 1.60 [place] [address] [address] Nov, Bipolar 1 disorder, mixed F3 1.60 ; Generalized anxiety disorder F41.1 ; Tobacco use disorder F17.200 and Other 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 (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 Z79.899 [place] [address] [address] Nov, [place] [address] [address] Nov, Bipolar 1 disorder, mixed F3 1.60 [place] [address] [address] October, Bipolar 1 disorder, mixed F3 1.60 [place] [address] [address] October, Bipolar 1 disorder, mixed F3 1.60 [place] [address] [place] [id number] [address] [place] [address] October, [place] [address] [place] [id number] [address] [place] [address] October, Bipolar 1 disorder, mixed F3 1.60 ; Generalized anxiety disorder F41.1 and Tobacco use disorder F17.200 [place] [address] [place] [address] Sep, [place] [address] [place] [id number] [place] [address] Sep, Encounter for Medicare annua wellness exam Z00.00 ; Major depressive disorder, recurrent episode, moderate F33.1 ; Allergic rhinitis J30.9 ; Bipolar 1 disorder, mixed F31.60 ; Fibromyalgia M79.7 ; Hyperlipidemia, unspecified hyperlipidemia type E78.5 ; Hormone replacement therapy Z79.890 ; Encounter for screening for lung cancer Z12.2 and Tobacco use disorder F17.200 [place] [address] [address] [place] [id number] [address] [place] [address] Sep, Bipolar 1 disorder, mixed F3 1.60 [place] [address] [address] Sep, Other chronic pain G89.29 ; Hyperlipidemia, unspecified hyperlipidemia type E78.5 ; Breast cancer screening Z12.31 and Post menopausal syndrome N95.1 [place] [address] [place] [id number] [address] [place] [address] Sep, Bipolar 1 disorder, mixed F3 1.60 [place] [address] [place] [id number] [place] [address] Sep, Bipolar 1 disorder, mixed F3 1.60 ; Generalized anxiety disorder F41.1 and Tobacco use disorder F17.200 [place] [address] [place] [id number] [place] [address] Sep, Gastritis without bleeding, unspecified chronicity, unspecified gastritis type K29.70 [place] [address] [place] [id number] [place] [address] Sep, Exercise counseling Z71.82 [place] [address] [place] [id number] [place] [address] Aug, Exercise counseling Z71.82 [place] [address] [place] [id number] [place] [address] Aug, Bipolar 1 disorder, mixed F3 1.60 [place] [address] [address] Aug, Exercise counseling Z71.82 [place] [address] [address] Aug, Bipolar 1 disorder, mixed F3 1.60 [place] [address] [address] Aug, Gastritis without bleeding, unspecified chronicity, unspecified gastritis type K29.70 ; Tobacco abuse Z72.0 ; Generalized anxiety disorder F41.1 and Weight gain R63.5 [place] [address] [address] Aug, Bipolar 1 disorder, mixed F3 1.60 ; Generalized anxiety disorder F41.1 and Tobacco use disorder F17.200 [place] [address] [address] Jul, Bipolar 1 disorder, mixed F3 1.60 [place] [address] [place] [address] Jul, [place] [address] [address] Jul, Bipolar 1 disorder, mixed F3 1.60 [place] [address] [place] [id number] [address] [place] [address] Jul, Allergic rhinitis J30.9 ; Ma darion depressive disorder, recurrent episode, moderate F33.1 and Tobacco 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 [facility] [address] [id number] [address] [place] [address] Jun, [facility] [address] [id number] [address] [place] [address] Jun, [facility] [address] [facility] [id number] [address] [place] [address] Jun, Bipolar 1 disorder, mixed F3 1.60 [facility] [address] [id number] [address] [place] [address] Jun, Bipolar 1 disorder, mixed F3 1.60 [facility] [address] [facility] [id number] [address] [place] [address] Jun, Bipolar 1 disorder, mixed F3 1.60 [facility] [address] [facility] [id number] [address] [place] [address] Jun, Generalized anxiety disorder F41.1 ; Tobacco abuse Z72.0 and Major depressive disorder, recurrent episode, moderate F33.1 [facility] [address] [facility] [id number] [address] [place] [address] May, Bipolar 1 disorder, mixed F3 1.60 [facility] [address] [facility] [id number] [address] [place] [address] May, Bipolar 1 disorder, mixed F3 1.60 and Generalized anxiety disorder F41.1 [facility] [address] [facility] [id number] [address] [place] [address] May, Bipolar 1 disorder, mixed F3 1.60 [facility] [address] [facility] [id number] [address] [place] [address] May, Allergic rhinitis J30.9 [facility] [address] [facility] [id number] [address] [place] [address] May, Bipolar 1 disorder, mixed F3 1.60 [facility] [address] [facility] [id number] [address] [place] [address] May, [facility] [address] [facility] [id number] [address] [place] [address] Apr, Allergic rhinitis J30.9 ; Dy sfunction of both eustachian tubes H69.83 ; History of bladder surgery Z98.890 and Cervicalgia M54.2 [facility] [address] [place] [id number] [address] [place] [address] Mar, Bipolar 1 disorder, mixed F3 1.60 [place] [address] [place] [id number] [place] [address] Mar, [place] [address] [place] [id number] [place] [address] Mar, Slow transit constipation K5 9.01 ; Encounter for immunization Z23 and Generalized anxiety disorder F41.1 [place] [address] [place] [id number] [address] [place] [address] 27 Feb, 2018 Bipolar 1 disorder, mixed F3 1.60 [place] [address] [place] [id number] [address] [place] [address] 26 Feb, 2018 Allergic rhinitis J30.9 [place] [id number] [place] [id number] [address] [place] [address] 24 Feb, 2018 Bipolar 1 disorder, mixed F3 1.60 [place] [address] [place] [id number] [place] [address] 20 Feb, 2018 Bipolar 1 disorder, mixed F3 1.60 and Generalized anxiety disorder F41.1 [place] [address] [place] [id number] [address] [place] [address] 13 Feb, 2018 Bipolar 1 disorder, mixed F3 1.60 [place] [address] [place] [id number] [address] [place] [address] 11 Feb, 2018 Allergic rhinitis J30.9 [facility] [address] [facility] [id number] [address] [place] [address] 05 Feb, 2018 [place] [address] [place] [id number] [address] [place] [address] Jan, Bipolar 1 disorder, mixed F3 1.60 [facility] [address] [facility] [id number] [address] [place] [address] Jan, Low back pain M54.5 ; Hyperl ipidemia, unspecified hyperlipidemia type E78.5 and Bipolar 1 disorder, mixed F31.60 [facility] [address] [facility] [id number] [address] [place] [address] Jan, Bipolar 1 disorder, mixed F3 1.60 [facility] [address] [facility] [id number] [address] [place] [address] Jan, Bipolar 1 disorder, mixed F3 1.60 [facility] [address] [facility] [id number] [address] [place] [address] Jan, Bipolar 1 disorder, mixed F3 1.60 [facility] [address] [facility] [id number] [address] [place] [address] Jan, Bipolar 1 disorder, mixed F3 1.60 [facility] [address] [facility] [id number] [address] [place] [address] Dec, Bipolar 1 disorder, mixed F3 1.60 ; Generalized anxiety disorder F41.1 and Other skin care therapist (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 Z79.899 [place] [id number] [facility] [id number] [address] [place] [address] Dec, Other skin care therapist (current) dr ug therapy Z79.899 [facility] [address] [facility] [id number] [address] [place] [address] Dec, Bipolar 1 disorder, mixed F3 1.60 [facility] [address] [facility] [id number] [address] [place] [address] Dec, Bipolar 1 disorder, mixed F3 1.60 [facility] [address] [facility] [id number] [address] [place] [address] Nov, Bipolar 1 disorder, mixed F3 1.60 [facility] [address] [facility] [id number] [address] [place] [address] Nov, Bipolar 1 disorder, mixed F3 1.60 [facility] [address] [place] [id number] [address] [place] [address] Nov, Bipolar 1 disorder, mixed F3 1.60 [facility] [address] [place] [id number] [address] [place] [address] Nov, Allergic rhinitis J30.9 [facility] [address] [place] [id number] [address] [place] [address] Nov, Allergic rhinitis J30.9 [facility] [address] [place] [id number] [address] [place] [address] Nov, [place] [address] [place] [id number] [place] [address] Nov, Bipolar 1 disorder, mixed F3 1.60 [place] [address] [address] Nov, Fibromyalgia M79.7 and Aller gic rhinitis J30.9 [place] [address] [place] [id number] [place] [address] October, Bipolar 1 disorder, mixed F3 1.60 [facility] [address] [place] [id number] [address] [place] [address] October, Acute nasopharyngitis J00 [facility] [address] [place] [id number] [address] [place] [address] October, Bitten or stung by nonvenomo us insect and other nonvenomous arthropods, initial encounter W57.XXXA and Insect bite (nonvenomous) of abdominal wall, initial encounter S30.861A [place] [address] [place] [id number] [address] [place] [address] October, Insect bite (nonvenomous) of abdominal wall, initial encounter S30.861A ; Bitten or stung by nonvenomous insect and other nonvenomous arthropods, initial encounter W57.XXXA ; Allergic rhinitis J30.9 and Low back pain M54.5 [facility] [address] [id number] [address] [place] [address] October, Bipolar 1 disorder, mixed F3 1.60 [facility] [address] [id number] [address] [place] [address] October, [facility] [address] [id number] [address] [place] [address] October, [facility] [address] [id number] [address] [place] [address] October, Bipolar 1 disorder, mixed F3 1.60 [facility] [address] [id number] [address] [place] [address] Sep, Bipolar 1 disorder, mixed F3 1.60 [facility] [address] [facility] [id number] [address] [place] [address] Sep, Other chronic pain G89.29 [facility] [address] [id number] [address] [place] [address] Sep, [facility] [address] [id number] [address] [place] [address] Sep, Bipolar 1 disorder, mixed F3 1.60 [facility] [address] [facility] [id number] [address] [place] [address] Sep, Allergic rhinitis J30.9 and Sciatica of left side M54.32 [facility] [address] [id number] [address] [place] [address] Sep, Bipolar 1 disorder, mixed F3 1.60 [facility] [address] [id number] [address] [place] [address] Sep, Bipolar 1 disorder, mixed F3 1.60 and Generalized anxiety disorder F41.1 [facility] [address] [id number] [address] [place] [address] Aug, [facility] [address] [facility] [id number] [address] [place] [address] Aug, Bipolar 1 disorder, mixed F3 1.60 [facility] [address] [id number] [address] [place] [address] Aug, Bipolar 1 disorder, mixed F3 1.60 [facility] [address] [facility] [id number] [address] [place] [address] Aug, [facility] [address] [facility] [id number] [address] [place] [address] Aug, Generalized anxiety disorder F41.1 [facility] [address] [id number] [address] [place] [address] Aug, Bipolar 1 disorder, mixed F3 1.60 [facility] [address] [facility] [id number] [address] [place] [address] Aug, Plantar wart of right foot B 07.0 [facility] [address] [facility] [id number] [address] [place] [address] Aug, Bipolar 1 disorder, mixed F3 1.60 [facility] [address] [facility] [id number] [address] [place] [address] Jul, Bipolar 1 disorder, mixed F3 1.60 [facility] [address] [facility] [id number] [address] [place] [address] Jul, [facility] [address] [facility] [id number] [address] [place] [address] 14 Jul, 2017 Bipolar 1 disorder, mixed F3 1.60 [facility] [address] [facility] [id number] [address] [place] [address] 09 Jul, 2017 Generalized anxiety disorder F41.1 [facility] [address] [facility] [id number] [address] [place] [address] Jul, Bipolar 1 disorder, mixed F3 1.60 [facility] [address] [facility] [id number] [address] [place] [address] 07 Jul, 2017 Acute left-sided low back pa in with left-sided sciatica M54.42 [facility] [address] [place] [id number] [address] [place] [address] 05 Jul, 2017 Coccydynia M53.3 [place] [address] [facility] [id number] [address] [place] [address] Jun, Bipolar 1 disorder, mixed F3 1.60 [facility] [address] [address] Jun, Acute nasopharyngitis J00 [place] [address] [place] [id number] [place] [address] Jun, Bipolar 1 disorder, mixed F3 1.60 [place] [address] [address] Jun, Fibromyalgia M79.7 [place] [address] [address] Jun, Bipolar 1 disorder, mixed F3 1.60 [place] [address] [address] Jun, Fibromyalgia M79.7 and Bipol ar 1 disorder, mixed F31.60 [place] [address] [address] May, Bipolar 1 disorder, mixed F3 1.60 ; Generalized anxiety disorder F41.1 and Other skin care therapist (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 Z79.899 [place] [address] [address] May, Bipolar 1 disorder, mixed F3 1.60 [facility] [address] [address] 14 May, 2017 Cough R05 and Body aches R52 [facility] [address] [place] [id number] [place] [address] 10 May, 2017 Bladder spasm N32.89 [address] te cystitis without hematuria N30.00 [place] [address] [address] 07 May, 2017 Bipolar 1 disorder, mixed F3 1.60 [place] [address] [place] [address] Apr, [place] [address] [address] Apr, Major depressive disorder, r ecurrent episode, moderate F33.1 and Encounter for immunization Z23 [place] [address] [address] Apr, Bipolar 1 disorder, mixed F3 1.60 [place] [address] [place] [address] Apr, Bipolar 1 disorder, mixed F3 1.60 [place] [address] [address] Apr, Bipolar 1 disorder, mixed F3 1.60 [place] [address] [address] Apr, Yeast vaginitis B37.3 [place] [address] [address] 09 Apr, 2017 Bipolar 1 disorder, mixed F3 1.60 [facility] [address] [address] 07 Apr, 2017 Cellulitis L03[address] for immunization Z23 [place] [address] [address] Apr, Bipolar 1 disorder, mixed F3 1.60 [place] [address] [place] [id number] Mar, Bipolar 1 disorder, mixed F3 1.60 [place] [address] [address] Mar, Bipolar 1 disorder, mixed F3 1.60 [place] [address] [address] Mar, Imbalance R26.89 [address] Encount er for immunization Z23 [place] [address] [place] [id number] Mar, Generalized anxiety disorder F41.1 [place] [address] [address] Mar, Bipolar 1 disorder, mixed F3 1.60 [place] [address] [address] Mar, Generalized anxiety disorder F41.1 [place] [address] [place] 85[address] Mar, Bipolar 1 disorder, mixed F3 1.60 [place] [address] [address] Mar, Bipolar 1 disorder, mixed F3 1.60 [place] [address] [address] Feb, Bipolar 1 disorder, mixed F3 1.60 [place] [address] [address] Feb, Bipolar 1 disorder, mixed F3 1.60 and Generalized anxiety disorder F41.1 [place] [address] [address] Feb, Gastritis without bleeding, unspecified chronicity, unspecified gastritis type K29.70 ; Hammer toe of right foot M20.41 and Other viral warts B07.8 [place] [address] [address] 20 Feb, 2017 Bipolar 1 disorder, mixed F3 1.60 [place] [address] [address] 13 Feb, 2017 Bipolar 1 disorder, mixed F3 1.60 [place] [address] [address] 05 Feb, 2017 Bipolar 1 disorder, mixed F3 1.60 [facility] [address] [facility] [id number] [address] [place] [address] 31 Jan, 2017 Encounter for screening mamm ogram for breast cancer Z12.31 ; Other viral warts B07.8 and Allergic rhinitis J30.9 [facility] [address] [facility] [id number] [address] [place] [address] Jan, Bipolar 1 disorder, mixed F3 1.60 [facility] [address] [facility] [id number] [address] [place] [address] Jan, Bipolar 1 disorder, mixed F3 1.60 [place] [address] [place] [id number] [address] [place] [address] Jan, [place] [address] [place] [id number] [address] [place] [phone] Jan, Bipolar 1 disorder, mixed F3 1.60 [place] [address] [facility] [id number] [address] [place] [phone] Jan, Bipolar 1 disorder, mixed F3 1.60 [place] [address] [place] [id number] [address] [place] [phone] 02 Jan, 2017 Allergic rhinitis J30.9 ; He maturia R31.9 and Colon cancer screening Z12.11 [place] [address] [facility] [id number] [address] [place] [phone] Dec, Bipolar 1 disorder, mixed F3 1.60 [facility] [address] [facility] [id number] [address] [place] [phone] 18 Dec, 2016 Bipolar 1 disorder, mixed F3 1.60 ; Generalized anxiety disorder F41.1 and Other skin care therapist (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 Z79.899 [facility] [address] [facility] [id number] [address] [place] [phone] 17 Dec, 2016 Bipolar 1 disorder, mixed F3 1.60 [place] [address] [place] [id number] [address] [place] [phone] Dec, Bipolar 1 disorder, mixed F3 1.60 [facility] [address] [id number] [address] [place] [phone] Dec, Bipolar 1 disorder, mixed F3 1.60 [facility] [address] [facility] [id number] [address] [place] [phone] Dec, Low back pain M54.5 and Recu rrent urinary tract infection N39.0 [facility] [address] [id number] [address] [place] [phone] Nov, Bipolar 1 disorder, mixed F3 1.60 [facility] [address] [facility] [id number] [address] [place] [phone] Nov, Bipolar 1 disorder, mixed F3 1.60 [facility] [address] [facility] [id number] [address] [place] [phone] Nov, Bipolar 1 disorder, mixed F3 1.60 [facility] [address] [facility] [id number] [address] [place] [phone] Nov, Bipolar 1 disorder, mixed F3 1.60 [facility] [address] [facility] [facility] [id number] [address] [place] [address] Nov, [facility] [address] [facility] [id number] [address] [place] [address] Nov, Anesthesia of skin R20.0 ; F requent UTI N39.0 ; Tobacco abuse Z72.0 and Colon cancer screening Z12.11 [facility] [address] [facility] [id number] [address] [place] [address] Nov, Bipolar 1 disorder, mixed F3 1.60 [facility] [address] [facility] [id number] [address] [place] [address] October, Bipolar 1 disorder, mixed F3 1.60 [facility] [address] [facility] [id number] [address] [place] [address] October, Bipolar 1 disorder, mixed F3 1.60 [facility] [address] [address] October, Bipolar 1 disorder, mixed F3 1.60 [facility] [address] [address] October, Bipolar 1 disorder, mixed F3 1.60 [facility] [address] [address] October, Bipolar 1 disorder, mixed F3 1.60 [facility] [address] [address] October, Cervicalgia M54.2 and Bipola r 1 disorder, mixed F31.60 [place] [address] [address] October, Hypertension I10 ; Hyperlipi demia, unspecified hyperlipidemia type E78.5 and Family history of thyroid disease Z83.49 [place] [address] [address] October, [facility] [address] [address] October, Hypertension I10 ; Hyperlipi demia, unspecified hyperlipidemia type E78.5 and Family history of thyroid problem Z83.49 [place] [address] [address] October, Bipolar 1 disorder, mixed F3 1.60 [place] [address] [address] Sep, Bipolar 1 disorder, mixed F3 1.60 [place] [address] [address] Sep, Bipolar 1 disorder, mixed F3 1.60 [facility] [address] [address] Sep, Bipolar 1 disorder, mixed F3 1.60 [facility] [address] [address] Sep, History of colon polyps Z86. 010 and Hematochezia K92.1 [facility] [address] [place] [id number] Sep, Major depressive disorder, r ecurrent episode, moderate F33.1 [facility] [address] [address] Sep, Bipolar 1 disorder, mixed F3 1.60 [facility] [address] [address] Aug, Hot flashes due to menopause N95.1 [facility] [address] [place] [id number] Aug, Bipolar 1 disorder, mixed F3 1.60 [place] [address] [address] Aug, [facility] [address] [address] Aug, Bipolar 1 disorder, mixed F3 1.60 [place] [address] [address] Aug, Bipolar 1 disorder, mixed F3 1.60 [place] [address] [address] Aug, Hot flashes due to menopause N95.1 ; Cervicalgia M54.2 and Ataxia R27.0 [facility] [address] [address] Jul, Bipolar 1 disorder, mixed F3 1.60 [place] [address] [place] [id number] Jul, Bipolar 1 disorder, mixed F3 1.60 [facility] [address] [address] Jul, Bipolar 1 disorder, mixed F3 1.60 [facility] [address] [address] 13 Jul, 2016 Bipolar 1 disorder, mixed F3 1.60 [place] [address] [place] [address] 10 Jul, 2016 Bipolar 1 disorder, mixed F3 1.60 [place] [address] [place] [id number] 08 Jul, 2016 Cervicalgia M54.2 ; Tremor R 25.1 ; Hearing abnormally acute, unspecified laterality H93.239 ; Alopecia L65.9 ; Encounter for immunization Z23 and Family history of thyroid disease Z83.49 [place] [address] Jul, Bipolar 1 disorder, mixed F3 1.60 [place] [address] [place] [address] Jun, [place] [address] [place] [address] Jun, Hearing disorder, unspecifie d laterality H93.299 [place] [address] Jun, Bipolar 1 disorder, mixed F3 1.60 [place] [address] [address] Jun, Bipolar 1 disorder, mixed F3 1.60 [place] [address] [address] Jun, Allergic rhinitis J30.9 [place] [address] [address] Jun, Bipolar 1 disorder, mixed F3 1.60 [place] [address] [address] Jun, Bipolar 1 disorder, mixed F3 1.60 [place] [address] [address] Jun, Allergic rhinitis J30.9 [facility] [address] [id number] [address] [place] [address] Jun, Allergic rhinitis J30.9 [facility] [address] [facility] [id number] [address] [place] [address] Jun, Bipolar 1 disorder, mixed F3 1.60 [facility] [address] [id number] [address] [place] [address] May, Bipolar 1 disorder, mixed F3 1.60 [facility] [address] [id number] [address] [place] [address] May, Bipolar 1 disorder, mixed F3 1.60 [facility] [address] [facility] [id number] [address] [place] [address] May, [facility] [address] [facility] [id number] [address] [place] [address] May, Bipolar 1 disorder, mixed F3 1.60 [facility] [address] [id number] [address] [place] [address] May, Bipolar 1 disorder, mixed F3 1.60 [facility] [address] [facility] [id number] [address] [place] [address] May, [facility] [address] [facility] [id number] [address] [place] [address] May, [facility] [address] [facility] [id number] [address] [place] [address] May, [facility] [address] [facility] [id number] [address] [place] [address] May, Abdominal pain, unspecified location R10.9 [facility] [address] [facility] [id number] [address] [place] [address] May, [facility] [address] [facility] [id number] [address] [place] [address] Apr, Hematuria R31.9 ; Ataxia R27 .0 and Hearing loss, unspecified laterality H91.90 [facility] [address] [place] [address] Apr, Bipolar 1 disorder, mixed F3 1.60 [facility] [address] [facility] [id number] [address] [place] [address] 11 Apr, 2016 Acute effusion of both middl e ears H65.193 [facility] [address] [address] 10 Apr, 2016 Hematuria R31.9 and Pyelonep hritis N12 [facility] [address] [address] Apr, [place] [address] [address] Mar, Bipolar 1 disorder, mixed F3 1.60 [facility] [address] [address] Mar, [facility] [address] [address] Mar, Bipolar 1 disorder, mixed F3 1.60 [place] [address] [address] Mar, Bipolar 1 disorder, mixed F3 1.60 [facility] [address] [address] Mar, Encounter for immunization Z 23 and Gastritis without bleeding, unspecified chronicity, unspecified gastritis type K29.70 [facility] [address] [place] [address] Mar, Bipolar 1 disorder, mixed F3 1.60 and Grief F43.20 [place] [address] [place] [id number] [place] [address] Mar, Gastritis without bleeding, unspecified chronicity, unspecified gastritis type K29.70 [facility] [address] [place] [id number] [address] [place] [address] Mar, Bipolar 1 disorder, mixed F3 1.60 [place] [address] [facility] [id number] [address] [place] [address] Mar, Gastritis without bleeding, unspecified chronicity, unspecified gastritis type K29.70 [facility] [address] [facility] [id number] [address] [place] [address] Mar, [place] [address] [place] [id number] [address] [place] [address] Feb, Bipolar 1 disorder, mixed F3 1.60 [place] [address] [place] [id number] [address] [place], [place] [id number] Feb, Bipolar 1 disorder, mixed F3 1.60 and Grief F43.20 [place] [address] [place] [id number] [address] [place] [address] Feb, Gastritis without bleeding, unspecified chronicity, unspecified gastritis type K29.70 [place] [address] [facility] [id number] [address] [place] [address] 14 Feb, 2016 Bipolar 1 disorder, mixed F3 1.60 [facility] [address] [facility] [id number] [address] [place] [address] 09 Feb, 2016 Gastroesophageal reflux dise ase, esophagitis presence not specified K21.9 [facility] [address] [facility] [id number] [address] [place] [address] Jan, Bipolar 1 disorder, mixed F3 1.60 [facility] [address] [facility] [id number] [address] [place] [address] Jan, Bipolar 1 disorder, mixed F3 1.60 and Unsteady gait R26.81 [place] [address] [facility] [id number] [address] [place] [address] Jan, Bipolar 1 disorder, mixed F3 1.60 [facility] [address] 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 [id number] [address] [place] [address] Jan, Bipolar 1 disorder, mixed F3 1.60 [facility] [address] [facility] [id number] [address] [place] [address] Jan, Bipolar 1 disorder, mixed F3 1.60 [place] [address] 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 [id number] [address] [place] [address] Jan, Bipolar 1 disorder, mixed F3 1.60 [place] [address] [place] [id number] [address] [place] [address] Dec, [place] [address] [facility] [id number] [address] [place] [address] Dec, Bipolar 1 disorder, mixed F3 1.60 ; Vitamin D deficiency, unspecified E55.9 ; H/O allergic rhinitis Z87.09 ; Other chronic pain G89.29 and Dorsalgia, unspecified M54.9 [place] [address] [place] [id number] [address] [place] [address] Dec, [place] [address] [facility] [id number] [address] [place] [address] Dec, Bipolar 1 disorder, mixed F3 1.60 [place] [address] [facility] [id number] [address] [place] [address] Dec, Major depressive disorder, r ecurrent episode, moderate F33.1 [place] [address] [place] [id number] [address] [place] [address] Dec, Major depressive disorder, r ecurrent episode, moderate F33.1 [place] [address] [place] [id number] [address] [place] [address] Nov, [facility] [address] [facility] [id number] [address] [place] [address] Nov, Bipolar 1 disorder, mixed F3 1.60 [facility] [address] [facility] [id number] [address] [place] [address] Nov, Major depressive disorder, r ecurrent episode, moderate F33.1 [facility] [address] [facility] [id number] [address] [place] [address] Nov, Cervicalgia M54.2 ; Arthralg ia of hip, unspecified laterality M25.559 ; Allergic rhinitis J30.9 and Hormone replacement therapy Z79.890 [facility] [address] [facility] [id number] [address] [place] [address] Nov, Other seasonal allergic rhin itis J30.2 [facility] [address] [facility] [id number] [address] [place] [address] October, Major depressive disorder, r ecurrent episode, moderate F33.1 [place] [address] [facility] [id number] [address] [place] [address] October, Major depressive disorder, r ecurrent episode, moderate F33.1 and Arthralgia of hip, unspecified laterality M25.559 [place] [address] [facility] [id number] [address] [place] [address] October, Grief F43.20 ; Hypertension I10 ; Hyperlipidemia, unspecified hyperlipidemia type E78.5 ; Other chronic pain G89.29 and Allergic rhinitis, unspecified allergic rhinitis type J30.9 [facility] [address] [facility] [id number] [address] [place] [address] October, Major depressive disorder, r ecurrent episode, moderate F33.1 [place] [address] [facility] [id number] [address] [place] [address] Sep, Major depressive disorder, r ecurrent episode, moderate F33.1 [place] [address] [facility] [id number] [address] [place] [address] Sep, [facility] [address] [facility] [id number] [address] [place] [address] Sep, Major depressive disorder, r ecurrent episode, moderate F33.1 [facility] [address] [facility] [id number] [address] [place] [address] Sep, Grief F43.20 [facility] [address] [facility] [id number] [address] [place] [address] Aug, Major depressive disorder, r ecurrent episode, moderate F33.1 [place] [address] [facility] [id number] [address] [place] [address] Aug, Bipolar 1 disorder, mixed F3 1.60 [place] [address] [facility] [id number] [address] [place] [address] Aug, Allergic rhinitis J30.9 ; Ce rvicalgia M54.2 and Low back pain M54.5 [place] [id number] [facility] [id number] [address] [place] [address] Aug, Major depressive disorder, r ecurrent episode, moderate F33.1 [facility] [address] [facility] [id number] [address] [place] [address] Aug, Sinusitis J32.9 and Tobacco 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 [facility] [address] [facility] [id number] [address] [place] [address] Aug, [facility] [address] [place] [id number] [address] [place] [address] Aug, Depressive disorder, not els ewhere classified F32.9 ; Hormone replacement therapy Z79.[address] scan, head R93.0 [place] [address] [facility] [id number] [address] [place] [address] Aug, Major depressive disorder, r ecurrent episode, moderate F33.1 [facility] [address] [facility] [id number] [address] [place] [address] Jul, Major depressive disorder, r ecurrent episode, moderate F33.1 [facility] [address] [facility] [id number] [address] [place] [address] Jul, Abdominal pain R10.9 and Hyp ertension I10 [facility] [address] [facility] [id number] [address] [place] [address] Jul, [facility] [address] [place] [id number] [address] [place] [address] Jul, Major depressive disorder, r ecurrent episode, moderate F33.1 [facility] [address] [facility] [id number] [place] [address] Jul, [facility] [address] [place] [id number] [address] [place] [address] Jul, [facility] [address] [address] Jun, [facility] [address] [place] [id number] [address] [place] [address] Jun, Depressive disorder, not els ewhere classified F32.9 [facility] [address] [place] [id number] [address] [place] [address] Jun, [facility] [address] [place] [id number] [address] [place] [address] Jun, [facility] [address] [place] [id number] [address] [place] [address] Jun, Arthralgia of hip, unspecifi ed laterality M25.559 ; Bruising, spontaneous R23.3 and Night sweats R61 [facility] [address] [facility] [id number] [address] [place] [address] Jun, [facility] [address] [place] [id number] [address] [place] [address] Jun, [facility] [address] [place] [id number] [address] [place] [address] May, [facility] [address] [id number] [address] [place] [address] May, Myalgia M79.1 and Screening, lipid Z13.220 [facility] [address] [id number] [address] [place] [address] Apr, Status post cervical spinal fusion Z98.1 ; Fibromyalgia M79.7 and Unsteady gait R26.81 [facility] [address] [id number] [address] [place] [address] Nov, [facility] [address] [id number] [address] [place] [address] Nov, [facility] [address] [id number] [address] [place] [address] October, [facility] [address] [id number] [address] [place] [address] October, [facility] [address] [id number] [address] [place] [address] October, [facility] [address] [id number] [address] [place] [address] October, [facility] [address] [facility] [id number] [address] [place] [address] October, [facility] [address] [id number] [address] [place] [address] October, Dysuria 788.1 ; Nausea 787.0 2 and Urinary tract infection 599.0 [facility] [address] [id number] [address] [place] [address] Sep, [facility] [address] [id number] [address] [place] [address] Sep, [facility] [address] [id number] [address] [place] [address] Aug, [facility] [address] [id number] [facility] [place] [address] 25 Aug, 2014 [facility] [address] [id number] [address] [place] [address], [place] [address] 24 Aug, 2014 [facility] [address] [id number] [address] [place] [address], [place] [address] 24 Aug, 2014 [facility] [address] [id number] [address] [place] [address], [place] [address] 23 Aug, 2014 [facility] [address] [id number] [address] [place] [address], [place] [address] 19 Aug, 2014 [facility] [address] [id number] [address] [place] [address], [place] [address] 19 Aug, 2014 [facility] [address] [id number] [address] [place] [address], [place] [address] 19 Aug, 2014 [facility] [address] [id number] [address] [place] [address], [place] [address] 19 Aug, 2014 [facility] [address] [id number] [address] [place] [address], [place] [address] 18 Aug, 2014 [facility] [address] [id number] [address] [place] [address], [place] [address] 18 Aug, 2014 [facility] [address] [id number] [address] [place] [address], [place] [address] 13 Aug, 2014 [facility] [address] [id number] [address] [place] [address], [place] [address] 13 Aug, 2014 [facility] [address] [id number] [address] [place] [address], [place] [address] 11 Aug, 2014 [facility] [address] [id number] [address] [place] [address], [place] [address] 11 Aug, 2014 [facility] [address] [id number] [address] [place] [address], [place] [address] 06 Aug, 2014 [facility] [address] [id number] [address] [place] [address], [place] [address] Aug, 2014 [facility] [address] [id number] [address] [place] [address], [place] [address] Aug, 2014 [facility] [address] [id number] [address] [place] [address], [place] [address] Aug, [facility] [address] [id number] [address] [place] [address], [place] [address] Aug, [facility] [address] [id number] [address] [place] [address], [place] [address] Aug, [facility] [address] [id number] [address] [place] [address], [place] [address] Aug, [facility] [address] [id number] [address] [place] [address], [place] [address] Jul, [facility] [address] [id number] [address] [place] [address], [place] [address] Jul, [facility] [address] [id number] [address] [place] [address], [place] [address] Jul, 2014 [facility] [address] [id number] [address] [place] [address], [place] [address] Jul, [facility] [address] [id number] [address] [place] [address], [place] [address] Jul, [facility] [address] [id number] [address] [place] [address], [place] [address] Jul, 2014 [facility] [address] [id number] [address] [place] [address], [place] [address] Jul, 2014 [facility] [address] [id number] [address] [place] [address], [place] [address] Jul, [facility] [address] [id number] [address] [place] [address], [place] [address] Jul, 2014 [facility] [address] [id number] [address] [place] [address], [place] [address] Jul, 2014 [facility] [address] [id number] [address] [place] [address], [place] [address] Jul, 2014 [facility] [address] [id number] [address] [place] [address], [place] [address] Jul, 2014 [facility] [address] [id number] [address] [place] [address], [place] [address] Jul, 2014 [facility] [address] [id number] [address] [place] [address], [place] [address] Jul, [facility] [address] [id number] [address] [place] [address], [place] [address] Jun, [facility] [address] [id number] [address] [place] [address], [place] [address] Jun, [facility] [address] [id number] [address] [place] [address], [place] [address] Jun, [facility] [address] [id number] [address] [place] [address], [place] [address] Jun, [facility] [address] [id number] [address] [place] [address], [place] [address] Jun, [facility] [address] [id number] [address] [place] [address], [place] [address] Jun, [facility] [address] [id number] [address] [place] [address], [place] [address] May, [facility] [address] [id number] [address] [place] [address], [place] [address] May, [facility] [address] [id number] [address] [place] [address], [place] [address] May, [facility] [address] [id number] [address] [place] [address], [place] [address] May, [facility] [address] [id number] [address] [place] [address], [place] [address] May, [facility] [address] [id number] [address] [place] [address], [place] [address] May, [facility] [address] [id number] [address] [place] [address], [place] [address] Apr, [facility] [address] [id number] [address] [place] [address], [place] [address] Apr, [facility] [address] [id number] [address] [place] [address], [place] [address] Apr, [facility] [address] [id number] [address] [place] [address], [place] [address] Apr, [facility] [address] [id number] [address] [place] [address], [place] [address] Apr, [facility] [address] [id number] [address] [place] [address], [place] [address] Apr, [facility] [address] [id number] [address] [place] [address], [place] [address] Mar, [facility] [address] [id number] [address] [place] [address], [place] [address] Mar, [facility] [address] [id number] [address] [place] [address], [place] [address] Mar, [facility] [address] [id number] [address] [place] [address] Mar, [facility] [address] [id number] [address] [place] [address] Mar, [facility] [address] [id number] [address] [place] [address] Mar, [facility] [address] [id number] [address] [place] [address], [place] [address] Mar, [facility] [address] [id number] [address] [place] [address] Mar, [facility] [address] [id number] [address] [place] [address], [place] [address] Mar, [facility] [address] [id number] [address] [place] [address], [place] [address] Mar, [facility] [address] [id number] [address] [place] [address], [place] [address] Mar, [facility] [address] [id number] [address] [place] [address], [place] [address] Mar, [facility] [address] [id number] [address] [place] [address], [place] [address] 30 Feb, 2014 [facility] [address] [id number] [address] [place] [address], [place] [address] 29 Feb, 2014 [facility] [address] [id number] [address] [place] [address], [place] [address] 29 Feb, 2014 [facility] [address] [id number] [address] [place] [address], [place] [address] Feb, [facility] [address] [id number] [address] [place] [address], [place] [address] Feb, [facility] [address] [id number] [address] [place] [address], [place] [address] Feb, [facility] [address] [id number] [address] [place] [address], [place] [address] Feb, [facility] [address] [id number] [address] [place] [address], [place] [address] Jan, [facility] [address] [id number] [address] [place] [address], [place] [address] Jan, [facility] [address] [id number] [address] [place] [address], [place] [address] Jan, [facility] [address] [id number] [address] [place] [address], [place] [address] Dec, [facility] [address] [id number] [address] [place] [address], [place] [address] Dec, [facility] [address] [id number] [address] [place] [address], [place] [address] Dec, [facility] [address] [id number] [address] [place] [address], [place] [address] Dec, [facility] [address] [id number] [address] [place] [address], [place] [address] Sep, [facility] [address] [id number] [address] [place] [address], [place] [address] Sep, [facility] [address] [id number] [address] [place] [address], [place] [address] Sep, [facility] [address] [id number] [address] [place] [address], [place] [address] Sep, [facility] [address] [id number] [address] [place] [address], [place] [address] Sep, [facility] [address] [id number] [address] [place] [address], [place] [address] Sep, [facility] [address] [id number] [address] [place] [address], [place] [address] Sep, [facility] [address] [id number] [address] [place] [address], [place] [address] Sep, [facility] [address] [id number] [address] [place] [address], [place] [address] Aug, [facility] [address] [id number] [address] [place] [address], [place] [address] Aug, [facility] [address] [id number] [address] [place] [address], [place] [address] May, [facility] [address] [id number] [address] [place] [address], [place] [address] May, [facility] [address] [id number] [address] [place] [address], [place] [address] Apr, [facility] [address] [id number] [address] [place] [address], [place] [address] Apr, [facility] [address] [id number] [address] [place] [address], [place] [address] Apr, [facility] [address] [id number] [address] [place] [address], [place] [address] Apr, [facility] [address] [id number] [address] [place] [address], [place] [address] Apr, [facility] [address] [id number] [address] [place] [address], [place] [address] Apr, [facility] [address] [id number] [address] [place] [address], [place] [address] May, [facility] [address] [id number] [address] [place] [address], [place] [address] 18 May, 2012 [facility] [address] [id number] [address] [place] [address], [place] [address] 15 May, 2012 [facility] [address] [id number] [address] [place] [address], [place] [address] 15 May, 2012 [facility] [address] [id number] [address] [place] [address], [place] [address] May, [facility] [address] [id number] [address] [place] [address], [place] [address] May, [facility] [address] [id number] [address] [place] [address], [place] [address] 13 Apr, 2012 [facility] [address] [id number] [address] [place] [address], [place] [address] Apr, [facility] [address] [id number] [address] [place] [address], [place] [address] Apr, [facility] [address] [id number] [address] [place] [address], [place] [address] Apr, [facility] [address] [id number] [address] [place] [address], [place] [address] Apr, [facility] [address] [id number] [address] [place] [address], [place] [address] Apr, [facility] [address] [id number] [address] [place] [address], [place] [address] 07 Apr, 2012 [facility] [address] [id number] [address] [place] [address], [place] [address] Apr, [facility] [address] [id number] [address] [place] [address], [place] [address] Apr, [facility] [address] [id number] [address] [place] [address], [place] [address] Apr, [facility] [address] [id number] [address] [place] [address], [place] [address] Mar, [facility] [address] [id number] [address] [place] [address], [place] [address] Mar, [facility] [address] [id number] [address] [place] [address], [place] [address] Mar, [facility] [address] [id number] [address] [place] [address], [place] [address] Mar, [facility] [address] [id number] [address] [place] [address], [place] [address] Mar, [facility] [address] [id number] [address] [place] [address], [place] [address] Mar, [facility] [address] [id number] [address] [place] [address], [place] [address] Mar, [facility] [address] [id number] [address] [place] [address], [place] [address] Mar, [facility] [address] [id number] [address] [place] [address], [place] [address] 23 Mar, 2012 [facility] [address] [id number] [address] [place] [address], [place] [address] 25 Feb, 2012 [facility] [address] [id number] [address] [place] [address], [place] [address] 16 Sep2011 [facility] [address] [id number] [address] [place] [address], [place] [address] Feb, [facility] [address] [id number] [address] [place] [address], [place] [address] Jan, [facility] [address] [id number] [address] [place] [address], [place] [address] Jan, [facility] [address] [id number] [address] [place] [address], [place] [address] Jan, [facility] [address] [id number] [address] [place] [address], [place] [address] Jan, [facility] [address] [id number] [address] [place] [address], [place] [address] Jan, [facility] [address] [id number] [address] [place] [address], [place] [address] Jan, [facility] [address] [id number] [address] [place] [address], [place] [address] Jan, [facility] [address] [id number] [address] [place] [address], [place] [address] Jan, [facility] [address] [id number] [address] [place] [address], [place] [address] Jan, [facility] [address] [id number] [address] [place] [address], [place] [address] Jan, [facility] [address] [id number] [address] [place] [address], [place] [address] Dec, [facility] [address] [id number] [address] [place] [address], [place] [address] Dec, [facility] [address] [id number] [address] [place] [address], [place] [address] Dec, [facility] [address] [id number] [address] [place] [address], [place] [address] Dec, [facility] [address] [id number] [address] [place] [address], [place] [address] Nov, [facility] [address] [id number] [address] [place] [address] 08 Nov, 2011 [facility] [address] [id number] [address] [place] [address] Nov, [facility] [address] [id number] [address] [place] [address] October, [facility] [address] [id number] [address] [place] [address] October, [facility] [address] [id number] [address] [place] [address] October, [facility] [address] [id number] [address] [place] [address] October, [facility] [address] [id number] [address] [place] [address] October, [facility] [address] [id number] [address] [place] [address] October, [facility] [address] [id number] [address] [place] [address] Aug, [facility] [address] [id number] [address] [place] [address] Mar, [facility] [address] [id number] [address] [place] [address] Nov, [facility] [address] [id number] [address] [place] [address] May, [facility] [address] [id number] [address] [place] [address] May, [facility] [address] [id number] [address] [place] [address] Apr, [facility] [address] [id number] [address] [place] [address] Mar, [facility] [address] [id number] [address] [place] [address] Mar, IMMUNIZATIONS No Known Immunizations SOCIAL HISTORY Never Assessed REASON FOR VISIT PLAN OF CARE VITAL SIGNS Height 64 in 2014-08-05 Weight 150.2 lbs 2014-08-05 Temperature 97.4 degrees Fahrenheit 2014-08-05 Heart Rate 88 bpm 2014-08-05 Respiratory Rate 18 2014-08-05 Blood pressure systolic 120 mmHg 2014-08-05 Blood pressure diastolic 78 mmHg 2014-08-05 MEDICATIONS Unknown Medications RESULTS No Results PROCEDURES [...]
--- OUTSIDE RECORDS SUMMARY | 2019-06-19 05:13 | XMS REPORT ---
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 Name Role Phone NAHOMY HANCOCK Unavailable PROBLEMS Type Condition ICD9-CM Code EBS84-QC Code Onset Dates Condition S tatus SNOMED Code Problem Age-related osteoporosis without current pathological fracture M81.0 Active 95878658 Problem Sensorineural hearing loss (SNHL) of both ears H90 .3 Active [address]32992 Problem Ab[address] CT scan, head R93.0 Active 326143063 Problem Arthralgia of hip, unspecified laterality M25.559 Active 46447026 Problem Bruising, spontaneous R23.3 Active 238195314 Problem Hypertension I10 Active 9681225 3 Problem Night sweats R61 Active 9578470 0 Problem Imbalance R26.89 Active 348379775 Problem Hammer toe of right foot M20.41 Activ e 749969670 Problem Hormone replacement therapy Z79.890 Ac tive 888879480 Problem Bipolar 1 disorder, mixed F31.60 Acti ve 05663612 Problem Gastritis without bleeding, unspecified chronicity, unspecified gastritis type K29.70 Active 638303834 Problem Ataxia R27.0 Active 83355008 Problem Hearing loss, unspecified laterality H91.90 Active 37493276 Problem History of colon polyps Z86.010 Active 324728154 Problem Allergic rhinitis J30.9 Active 61 465720 Problem Hematuria, unspecified type R31.9 Ac tive 23281326 Problem Generalized anxiety disorder F41.1 A ctive 06733135 Problem Major depressive disorder, recurrent episode, moderate F33.1 Active 361300636 Problem Fibromyalgia M79.7 Active 4952681 7 Problem Bladder spasm N32.89 Active 406521 006 Problem Tobacco use disorder F17.200 Active 995619100 Problem Other chronic pain G89.29 Active 8 0736434 Problem Post menopausal syndrome N95.1 Activ e 787260961 Problem Grief F43.20 Active 52029638 Problem Hyperlipidemia, unspecified hyperlipidemia type E7 8.5 Active 27003414 Problem Acute left-sided low back pain with left-sided sciatica M54.42 Active 467743384 Problem Sciatica of left side M54.32 Active 94547106 Problem Plantar wart of right foot B07.0 Act mitchell [id number] Problem Slow transit constipation K59.01 Acti ve 19249038 ALLERGIES No Information ENCOUNTERS Encounter Location Date Diagnosis [place] [address] [place] [id number] [place] [address] Jan, [facility] [address] [address] Dec, [place] [address] [address] Dec, [place] [address] [address] Dec, Bipolar 1 disorder, mixed F3 1.60 [place] [address] [place] [id number] [place] [address] Nov, Bipolar 1 disorder, mixed F3 1.60 [place] [address] [address] Nov, Bipolar 1 disorder, mixed F3 1.60 ; Generalized anxiety disorder F41.1 ; Tobacco use disorder F17.200 and 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 [place] [address] [place] [id number] [place] [address] Nov, [facility] [address] [place] [id number] [address] [place] [address] Nov, Bipolar 1 disorder, mixed F3 1.60 [place] [address] [place] [id number] [address] [place] [address] October, Bipolar 1 disorder, mixed F3 1.60 [place] [address] [address] October, Bipolar 1 disorder, mixed F3 1.60 [place] [address] [place] [address] October, [place] [address] [place] [address] October, Bipolar 1 disorder, mixed F3 1.60 ; Generalized anxiety disorder F41.1 and Tobacco use disorder F17.200 [place] [address] [place] [address] Sep, [place] [address] [place] [id number] [address] [place] [address] Sep, [facility] Z00.00 ; Major depressive disorder, recurrent episode, moderate F33.1 ; Allergic rhinitis J30.9 ; Bipolar 1 disorder, mixed F31.60 ; Fibromyalgia M79.7 ; Hyperlipidemia, unspecified hyperlipidemia type E78.5 ; Hormone replacement therapy Z79.890 ; Encounter for screening for lung cancer Z12.2 and Tobacco use disorder F17.200 [place] [address] [place] [address] Sep, Bipolar 1 disorder, mixed F3 1.60 [place] [address] [place] [id number] [place] [address] Sep, Other chronic pain G89.29 ; Hyperlipidemia, unspecified hyperlipidemia type E78.5 ; Breast cancer screening Z12.31 and Post menopausal syndrome N95.1 [place] [address] [place] [id number] [address] [place] [address] Sep, Bipolar 1 disorder, mixed F3 1.60 [place] [address] [place] [id number] [address] [place] [address] Sep, Bipolar 1 disorder, mixed F3 1.60 ; Generalized anxiety disorder F41.1 and Tobacco use disorder F17.200 [place] [address] [place] [id number] [address] [place] [address] Sep, Gastritis without bleeding, unspecified chronicity, unspecified gastritis type K29.70 [place] [address] [facility] [id number] [address] [place] [address] 08 Sep, 2018 Exercise counseling Z71.82 [place] [address] [facility] [id number] [address] [place] [address] Aug, Exercise counseling Z71.82 [place] [address] [facility] [id number] [address] [place] [address] Aug, Bipolar 1 disorder, mixed F3 1.60 [place] [address] [facility] [id number] [address] [place] [address] Aug, Exercise counseling Z71.82 [place] [address] [place] [id number] [address] [place] [address] Aug, Bipolar 1 disorder, mixed F3 1.60 [place] [address] [place] [id number] [address] [place] [address] Aug, Gastritis without bleeding, unspecified chronicity, unspecified gastritis type K29.70 ; Tobacco abuse Z72.0 ; Generalized anxiety disorder F41.1 and Weight gain R63.5 [place] [address] [place] [id number] [address] [place] [address] Aug, Bipolar 1 disorder, mixed F3 1.60 ; Generalized anxiety disorder F41.1 and Tobacco use disorder F17.200 [place] [address] [place] [id number] [address] [place] [address] Jul, Bipolar 1 disorder, mixed F3 1.60 [place] [address] [facility] [id number] [address] [place] [address] Jul, [place] [address] [place] [id number] [address] [place] [address] Jul, Bipolar 1 disorder, mixed F3 1.60 [place] [address] [place] [id number] [address] [place] [address] 11 Jul, 2018 Allergic rhinitis J30.9 ; Ma darion depressive disorder, recurrent episode, moderate F33.1 and Tobacco 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 [facility] [address] [facility] [id number] [address] [place] [address] Jun, [facility] [address] [facility] [id number] [address] [place] [address] Jun, [facility] [address] [facility] [id number] [address] [place] [address] Jun, Bipolar 1 disorder, mixed F3 1.60 [facility] [address] [facility] [id number] [address] [place] [address] Jun, Bipolar 1 disorder, mixed F3 1.60 [facility] [address] [facility] [id number] [address] [place] [address] Jun, Bipolar 1 disorder, mixed F3 1.60 [facility] [address] [facility] [id number] [address] [place] [address] Jun, Generalized anxiety disorder F41.1 ; Tobacco abuse Z72.0 and Major depressive disorder, recurrent episode, moderate F33.1 [facility] [address] [facility] [id number] [address] [place] [address] May, Bipolar 1 disorder, mixed F3 1.60 [facility] [address] [facility] [id number] [address] [place] [address] May, Bipolar 1 disorder, mixed F3 1.60 and Generalized anxiety disorder F41.1 [facility] [address] [facility] [id number] [address] [place] [address] May, Bipolar 1 disorder, mixed F3 1.60 [facility] [address] [facility] [id number] [address] [place] [address] May, Allergic rhinitis J30.9 [facility] [address] [facility] [id number] [address] [place] [address] May, Bipolar 1 disorder, mixed F3 1.60 [facility] [address] [facility] [id number] [address] [place] [address] May, [facility] [address] [place] [id number] [address] [place] [address] Apr, Allergic rhinitis J30.9 ; Dy sfunction of both eustachian tubes H69.83 ; History of bladder surgery Z98.890 and Cervicalgia M54.2 [facility] [address] [place] [id number] [address] [place] [address] Mar, Bipolar 1 disorder, mixed F3 1.60 [place] [address] [place] [id number] [place] [address] Mar, [place] [address] [address] Mar, Slow transit constipation K5 9.01 ; Encounter for immunization Z23 and Generalized anxiety disorder F41.1 [place] [address] [place] [id number] [place] [address] 27 Feb, 2018 Bipolar 1 disorder, mixed F3 1.60 [place] [address] [place] [id number] [address] [place] [address] 26 Feb, 2018 Allergic rhinitis J30.9 [place] [address] [place] [id number] [place] [address] 24 Feb, 2018 Bipolar 1 disorder, mixed F3 1.60 [place] [address] [place] [id number] [place] [address] 20 Feb, 2018 Bipolar 1 disorder, mixed F3 1.60 and Generalized anxiety disorder F41.1 [place] [address] [place] [id number] [address] [place] [address] 13 Feb, 2018 Bipolar 1 disorder, mixed F3 1.60 [place] [address] [place] [id number] [place] [address] 11 Feb, 2018 Allergic rhinitis J30.9 [facility] [address] [place] [id number] [address] [place] [address] 05 Feb, 2018 [place] [address] [place] [id number] [place] [address] Jan, Bipolar 1 disorder, mixed F3 1.60 [facility] [address] [facility] [id number] [address] [place] [address] Jan, Low back pain M54.5 ; Hyperl ipidemia, unspecified hyperlipidemia type E78.5 and Bipolar 1 disorder, mixed F31.60 [facility] [address] [facility] [id number] [address] [place] [address] Jan, Bipolar 1 disorder, mixed F3 1.60 [facility] [address] [facility] [id number] [address] [place] [address] Jan, Bipolar 1 disorder, mixed F3 1.60 [place] [address] [place] [id number] [address] [place] [address] Jan, Bipolar 1 disorder, mixed F3 1.60 [place] [address] [place] [id number] [address] [place] [address] Jan, Bipolar 1 disorder, mixed F3 1.60 [facility] [address] [place] [id number] [address] [place] [address] Dec, Bipolar 1 disorder, mixed F3 1.60 ; Generalized anxiety disorder F41.1 and 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 [place] [address] [place] [id number] [address] [place] [address] Dec, Other nursing home (current) dr ug therapy Z79.899 [facility] [address] [facility] [id number] [address] [place] [address] Dec, Bipolar 1 disorder, mixed F3 1.60 [place] [address] [facility] [id number] [address] [place] [address] Dec, Bipolar 1 disorder, mixed F3 1.60 [facility] [address] [place] [id number] [address] [place] [address] Nov, Bipolar 1 disorder, mixed F3 1.60 [place] [address] [facility] [id number] [address] [place] [address] Nov, Bipolar 1 disorder, mixed F3 1.60 [facility] [address] [place] [id number] [address] [place] [address] Nov, Bipolar 1 disorder, mixed F3 1.60 [facility] [address] [facility] [id number] [address] [place] [address] 11 Nov, 2017 Allergic rhinitis J30.9 [facility] [address] [place] [id number] [address] [place] [address] Nov, Allergic rhinitis J30.9 [facility] [address] [place] [id number] [place] [address] Nov, [facility] [address] [address] Nov, Bipolar 1 disorder, mixed F3 1.60 [place] [address] [address] Nov, Fibromyalgia M79.7 and Aller gic rhinitis J30.9 [facility] [address] [place] [address] October, Bipolar 1 disorder, mixed F3 1.60 [facility] [address] [place] [id number] [place] [address] October, Acute nasopharyngitis J00 [facility] [address] [address] October, Bitten or stung by nonvenomo us insect and other nonvenomous arthropods, initial encounter W57.XXXA and Insect bite (nonvenomous) of abdominal wall, initial encounter S30.861A [place] [address] [place] [id number] [place] [address] October, Insect bite (nonvenomous) of abdominal wall, initial encounter S30.861A ; Bitten or stung by nonvenomous insect and other nonvenomous arthropods, initial encounter W57.XXXA ; Allergic rhinitis J30.9 and Low back pain M54.5 [facility] [address] [id number] [address] [place] [address] October, Bipolar 1 disorder, mixed F3 1.60 [facility] [address] [id number] [address] [place] [address] October, [facility] [address] [id number] [address] [place] [address] October, [facility] [address] [id number] [address] [place] [address] October, Bipolar 1 disorder, mixed F3 1.60 [facility] [address] [id number] [address] [place] [address] Sep, Bipolar 1 disorder, mixed F3 1.60 [facility] [address] [id number] [address] [place] [address] Sep, Other chronic pain G89.29 [facility] [address] [id number] [address] [place] [address] Sep, [facility] [address] [id number] [address] [place] [address] Sep, Bipolar 1 disorder, mixed F3 1.60 [facility] [address] [facility] [id number] [address] [place] [address] Sep, Allergic rhinitis J30.9 and Sciatica of left side M54.32 [facility] [address] [id number] [address] [place] [address] Sep, Bipolar 1 disorder, mixed F3 1.60 [facility] [address] [id number] [address] [place] [address] Sep, Bipolar 1 disorder, mixed F3 1.60 and Generalized anxiety disorder F41.1 [facility] [address] [id number] [address] [place] [address] Aug, [facility] [address] [facility] [id number] [address] [place] [address] Aug, Bipolar 1 disorder, mixed F3 1.60 [facility] [address] [id number] [address] [place] [address] Aug, Bipolar 1 disorder, mixed F3 1.60 [facility] [address] [facility] [id number] [address] [place] [address] Aug, [facility] [address] [facility] [id number] [address] [place] [address] Aug, Generalized anxiety disorder F41.1 [facility] [address] [id number] [address] [place] [address] Aug, Bipolar 1 disorder, mixed F3 1.60 [facility] [address] [facility] [id number] [address] [place] [address] Aug, Plantar wart of right foot B 07.0 [facility] [address] [facility] [id number] [address] [place] [address] Aug, Bipolar 1 disorder, mixed F3 1.60 [facility] [address] [facility] [id number] [address] [place] [address] Jul, Bipolar 1 disorder, mixed F3 1.60 [facility] [address] [facility] [id number] [address] [place] [address] Jul, [facility] [address] [facility] [id number] [address] [place] [address] 14 Jul, 2017 Bipolar 1 disorder, mixed F3 1.60 [facility] [address] [facility] [id number] [address] [place] [address] Jul, Generalized anxiety disorder F41.1 [facility] [address] [facility] [id number] [address] [place] [address] Jul, Bipolar 1 disorder, mixed F3 1.60 [facility] [address] [facility] [id number] [address] [place] [address] Jul, Acute left-sided low back pa in with left-sided sciatica M54.42 [place] [address] [place] [address] 05 Jul, 2017 Coccydynia M53.3 [place] [address] [place] [id number] [address] [place] [address] Jun, Bipolar 1 disorder, mixed F3 1.60 [facility] [place] [id number] [place] [address] Jun, Acute nasopharyngitis J00 [place] [address] [place] [id number] [address] [place] [address] Jun, Bipolar 1 disorder, mixed F3 1.60 [place] [address] [address] Jun, Fibromyalgia M79.7 [place] [address] [address] Jun, Bipolar 1 disorder, mixed F3 1.60 [place] [address] [address] Jun, Fibromyalgia M79.7 and Bipol ar 1 disorder, mixed F31.60 [place] [address] [address] May, Bipolar 1 disorder, mixed F3 1.60 ; Generalized anxiety disorder F41.1 and 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 [place] [address] [place] [address] May, Bipolar 1 disorder, mixed F3 1.60 [facility] N [address] [place] [address] 14 May, 2017 Cough R05 and Body aches R52 [facility] [place] [address] [place] [id number] [address] [place] [address] 10 May, 2017 Bladder spasm N32.89 [address] te cystitis without hematuria N30.00 [place] [address] [address] 07 May, 2017 Bipolar 1 disorder, mixed F3 1.60 [facility] [address] [place] [address] 30 Apr, 2017 [facility] [address] [address] Apr, Major depressive disorder, r ecurrent episode, moderate F33.1 and Encounter for immunization Z23 [facility] [address] [address] 29 Apr, 2017 Bipolar 1 disorder, mixed F3 1.60 [place] [address] [place] [address] Apr, Bipolar 1 disorder, mixed F3 1.60 [place] [address] [address] 16 Apr, 2017 Bipolar 1 disorder, mixed F3 1.60 [facility] [address] [address] 13 Apr, 2017 Yeast vaginitis B37.3 [place] [address] [address] 09 Apr, 2017 Bipolar 1 disorder, mixed F3 1.60 [facility] [address] [address] 07 Apr, 2017 [address]ulitis L03[address] for immunization Z23 [facility] [address] [address] 02 Apr, 2017 Bipolar 1 disorder, mixed F3 1.60 [facility] [address] [address] Mar, Bipolar 1 disorder, mixed F3 1.60 [place] [address] [address] Mar, Bipolar 1 disorder, mixed F3 1.60 [facility] [address] [place] [address] Mar, Imbalance R26.89 [address] Encount er for immunization Z23 [place] [address] [place] [address] Mar, Generalized anxiety disorder F41.1 [place] [address] [address] Mar, Bipolar 1 disorder, mixed F3 1.60 [place] [address] [address] Mar, Generalized anxiety disorder F41.1 [place] [address] [place] 08[address] Mar, Bipolar 1 disorder, mixed F3 1.60 [place] [address] [address] Mar, Bipolar 1 disorder, mixed F3 1.60 [place] [address] [address] Feb, Bipolar 1 disorder, mixed F3 1.60 [place] [address] [address] Feb, Bipolar 1 disorder, mixed F3 1.60 and Generalized anxiety disorder F41.1 [place] [address] [address] Feb, Gastritis without bleeding, unspecified chronicity, unspecified gastritis type K29.70 ; Hammer toe of right foot M20.41 and Other viral warts B07.8 [place] [address] [address] 20 Feb, 2017 Bipolar 1 disorder, mixed F3 1.60 [place] [address] [address] 13 Feb, 2017 Bipolar 1 disorder, mixed F3 1.60 [place] [address] [address] 05 Feb, 2017 Bipolar 1 disorder, mixed F3 1.60 [facility] [address] [facility] [id number] [address] [place] [id number] 31 Jan, 2017 Encounter for screening mamm ogram for breast cancer Z12.31 ; Other viral warts B07.8 and Allergic rhinitis J30.9 [facility] [address] [facility] [id number] [address] [place] [id number] Jan, Bipolar 1 disorder, mixed F3 1.60 [facility] [address] [facility] [id number] [address] [place] [id number] Jan, Bipolar 1 disorder, mixed F3 1.60 [place] [address] [facility] [id number] [address] [place] [id number] Jan, [place] [address] [facility] [id number] [address] [place] [id number] Jan, Bipolar 1 disorder, mixed F3 1.60 [place] [address] [facility] [id number] [address] [place] [id number] Jan, Bipolar 1 disorder, mixed F3 1.60 [place] [id number] [facility] [id number] [address] [place] [id number] Jan, Allergic rhinitis J30.9 ; He maturia R31.9 and Colon cancer screening Z12.11 [facility] [address] [facility] [id number] [address] [place] [id number] Dec, Bipolar 1 disorder, mixed F3 1.60 [facility] [address] [facility] [id number] [address] [place] [id number] 18 Dec, 2016 Bipolar 1 disorder, mixed F3 1.60 ; Generalized anxiety disorder F41.1 and 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 [facility] [facility] [address] [facility] [id number] [address] [place] [address] Dec, Bipolar 1 disorder, mixed F3 1.60 [facility] [address] [place] [id number] [address] [place] [address] Dec, Bipolar 1 disorder, mixed F3 1.60 [facility] [address] [facility] [id number] [address] [place] [address] Dec, Bipolar 1 disorder, mixed F3 1.60 [facility] [address] [facility] [id number] [address] [place] [address] Dec, Low back pain M54.5 and Recu rrent urinary tract infection N39.0 [facility] [address] [facility] [id number] [address] [place] [address] Nov, Bipolar 1 disorder, mixed F3 1.60 [facility] [address] [facility] [id number] [address] [place] [address] Nov, Bipolar 1 disorder, mixed F3 1.60 [facility] [address] [facility] [id number] [address] [place] [address] Nov, Bipolar 1 disorder, mixed F3 1.60 [facility] [address] [facility] [id number] [address] [place] [address] Nov, Bipolar 1 disorder, mixed F3 1.60 [facility] [address] [facility] [id number] [address] [place] [address] Nov, [facility] [address] [facility] [id number] [address] [place] [address] Nov, Anesthesia of skin R20.0 ; F requent UTI N39.0 ; Tobacco abuse Z72.0 and Colon cancer screening Z12.11 [facility] [address] [facility] [id number] [address] [place] [address] Nov, Bipolar 1 disorder, mixed F3 1.60 [facility] [address] [facility] [id number] [address] [place] [address] October, Bipolar 1 disorder, mixed F3 1.60 [facility] [address] [facility] [id number] [address] [place] [address] October, Bipolar 1 disorder, mixed F3 1.60 [facility] [address] [facility] [id number] [address] [place] [address] October, Bipolar 1 disorder, mixed F3 1.60 [place] [address] [address] October, Bipolar 1 disorder, mixed F3 1.60 [place] [address] [address] October, Bipolar 1 disorder, mixed F3 1.60 [place] [address] [address] October, Cervicalgia M54.2 and Bipola r 1 disorder, mixed F31.60 [place] [address] [address] October, Hypertension I10 ; Hyperlipi demia, unspecified hyperlipidemia type E78.5 and Family history of thyroid disease Z83.49 [place] [address] [address] October, [place] [address] [address] October, Hypertension I10 ; Hyperlipi demia, unspecified hyperlipidemia type E78.5 and Family history of thyroid problem Z83.49 [place] [address] [address] October, Bipolar 1 disorder, mixed F3 1.60 [place] [address] [address] Sep, Bipolar 1 disorder, mixed F3 1.60 [place] [address] [place] [id number] [place] [address] Sep, Bipolar 1 disorder, mixed F3 1.60 [place] [address] [address] Sep, Bipolar 1 disorder, mixed F3 1.60 [place] [address] [address] Sep, History of colon polyps Z86. 010 and Hematochezia K92.1 [facility] [id number] [place] [address] Sep, Major depressive disorder, r ecurrent episode, moderate F33.1 [facility] [address] [place] [id number] [address] [place] [address] Sep, Bipolar 1 disorder, mixed F3 1.60 [facility] [address] [place] [id number] [address] [place] [address] Aug, Hot flashes due to menopause N95.1 [facility] [address] [place] [id number] [place] [address] Aug, Bipolar 1 disorder, mixed F3 1.60 [facility] [address] [address] Aug, [facility] [address] [address] Aug, Bipolar 1 disorder, mixed F3 1.60 [facility] [address] [address] Aug, Bipolar 1 disorder, mixed F3 1.60 [facility] [address] [place] [id number] [place] [address] Aug, Hot flashes due to menopause N95.1 ; Cervicalgia M54.2 and Ataxia R27.0 [facility] [address] [place] [id number] [address] [place] [address] Jul, Bipolar 1 disorder, mixed F3 1.60 [facility] [address] [place] [id number] [address] [place] [address] Jul, Bipolar 1 disorder, mixed F3 1.60 [facility] [address] [place] [id number] [address] [place] [address] Jul, Bipolar 1 disorder, mixed F3 1.60 [facility] [address] [address] 13 Jul, 2016 Bipolar 1 disorder, mixed F3 1.60 [place] [address] [place] 088052[address] 10 Jul, 2016 Bipolar 1 disorder, mixed F3 1.60 [place] [address] 08 Jul, 2016 Cervicalgia M54.2 ; Tremor R 25.1 ; Hearing abnormally acute, unspecified laterality H93.239 ; Alopecia L65.9 ; Encounter for immunization Z23 and Family history of thyroid disease Z83.49 [place] [address] 06 Jul, 2016 Bipolar 1 disorder, mixed F3 1.60 [place] [address] [place] 08[address]52[address] Jun, [place] [address] [place] 088052[address] Jun, Hearing disorder, unspecifie d laterality H93.299 [place] [address] [place] 08[address]52[address] Jun, Bipolar 1 disorder, mixed F3 1.60 [place] [address] [address] Jun, Bipolar 1 disorder, mixed F3 1.60 [place] [address] [address] Jun, Allergic rhinitis J30.9 [place] [address] [address] Jun, Bipolar 1 disorder, mixed F3 1.60 [place] [address] [place] 08[address]52[address] Jun, Bipolar 1 disorder, mixed F3 1.60 [place] [address] [address] Jun, Allergic rhinitis J30.9 [facility] [address] [facility] [id number] [address] [place] [address] Jun, Allergic rhinitis J30.9 [facility] [address] [facility] [id number] [address] [place] [address] Jun, Bipolar 1 disorder, mixed F3 1.60 [facility] [address] [facility] [id number] [address] [place] [address] May, Bipolar 1 disorder, mixed F3 1.60 [facility] [address] [id number] [address] [place] [address] May, Bipolar 1 disorder, mixed F3 1.60 [facility] [address] [facility] [id number] [address] [place] [address] May, [facility] [address] [facility] [id number] [address] [place] [address] May, Bipolar 1 disorder, mixed F3 1.60 [facility] [address] [facility] [id number] [address] [place] [address] May, Bipolar 1 disorder, mixed F3 1.60 [facility] [address] [facility] [id number] [address] [place] [address] May, [facility] [address] [facility] [id number] [address] [place] [address] May, [facility] [address] [facility] [id number] [address] [place] [address] May, [facility] [address] [facility] [id number] [address] [place] [address] May, Abdominal pain, unspecified location R10.9 [facility] [address] [facility] [id number] [address] [place] [address] May, [facility] [address] [facility] [id number] [address] [place] [address] Apr, Hematuria R31.9 ; Ataxia R27 .0 and Hearing loss, unspecified laterality H91.90 [facility] [address] [place] [id number] [address] [place] [address] Apr, Bipolar 1 disorder, mixed F3 1.60 [facility] [address] [address] 11 Apr, 2016 Acute effusion of both middl e ears H65.193 [facility] [address] [address] 10 Apr, 2016 Hematuria R31.9 and Pyelonep hritis N12 [facility] [address] [address] Apr, [place] [address] [address] Mar, Bipolar 1 disorder, mixed F3 1.60 [facility] [address] [address] Mar, [facility] [address] [address] Mar, Bipolar 1 disorder, mixed F3 1.60 [place] [address] [address] Mar, Bipolar 1 disorder, mixed F3 1.60 [facility] [address] [address] Mar, Encounter for immunization Z 23 and Gastritis without bleeding, unspecified chronicity, unspecified gastritis type K29.70 [facility] [address] [address] Mar, Bipolar 1 disorder, mixed F3 1.60 and Grief F43.20 [place] [address] [address] Mar, Gastritis without bleeding, unspecified chronicity, unspecified gastritis type K29.70 [place] [address] [address] Mar, Bipolar 1 disorder, mixed F3 1.60 [place] [address] [facility] [id number] [address] [place], [place] [id number] Mar, Gastritis without bleeding, unspecified chronicity, unspecified gastritis type K29.70 [facility] [address] [facility] [id number] [address] [place] [address] Mar, [place] [address] [place] [id number] [address] [place], [place] [id number] Feb, Bipolar 1 disorder, mixed F3 1.60 [place] [address] [place] [id number] [address] [place], [place] [id number] Feb, Bipolar 1 disorder, mixed F3 1.60 and Grief F43.20 [place] [address] [place] [id number] [address] [place] [address] Feb, Gastritis without bleeding, unspecified chronicity, unspecified gastritis type K29.70 [place] [address] [place] [id number] [address] [place] [address] 14 Feb, 2016 Bipolar 1 disorder, mixed F3 1.60 [facility] [address] [place] [id number] [address] [place] [address] Feb, Gastroesophageal reflux dise ase, esophagitis presence not specified K21.9 [facility] [address] [place] [id number] [address] [place] [address] Jan, Bipolar 1 disorder, mixed F3 1.60 [place] [address] [place] [id number] [address] [place] [address] Jan, Bipolar 1 disorder, mixed F3 1.60 and Unsteady gait R26.81 [place] [address] [place] [id number] [address] [place] [address] Jan, Bipolar 1 disorder, mixed F3 1.60 [facility] [address] [place] [id number] [address] [place] [address] Jan, Bipolar 1 disorder, mixed F3 1.60 and 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 [facility] [address] [facility] [id number] [address] [place] [address] Jan, Bipolar 1 disorder, mixed F3 1.60 [facility] [address] [facility] [id number] [address] [place] [address] Jan, Bipolar 1 disorder, mixed F3 1.60 [place] [address] [place] [id number] [address] [place] [address] Jan, Bipolar 1 disorder, mixed F3 1.60 ; Grief F43.20 and 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 [place] [address] [place] [id number] [address] [place] [address] Jan, Bipolar 1 disorder, mixed F3 1.60 [place] [address] [place] [id number] [address] [place] [address] Dec, [place] [address] [place] [id number] [address] [place] [address] Dec, Bipolar 1 disorder, mixed F3 1.60 ; Vitamin D deficiency, unspecified E55.9 ; H/O allergic rhinitis Z87.09 ; Other chronic pain G89.29 and Dorsalgia, unspecified M54.9 [place] [address] [place] [id number] [address] [place] [address] Dec, [place] [address] [place] [id number] [address] [place] [address] Dec, Bipolar 1 disorder, mixed F3 1.60 [place] [address] [place] [id number] [address] [place] [address] Dec, Major depressive disorder, r ecurrent episode, moderate F33.1 [place] [address] [place] [id number] [address] [place] [address] Dec, Major depressive disorder, r ecurrent episode, moderate F33.1 [place] [address] [place] [id number] [address] [place] [address] Nov, [facility] [address] [facility] [id number] [address] [place] [address] Nov, Bipolar 1 disorder, mixed F3 1.60 [place] [address] [facility] [id number] [address] [place] [address] Nov, Major depressive disorder, r ecurrent episode, moderate F33.1 [place] [address] [place] [id number] [address] [place] [address] Nov, Cervicalgia M54.2 ; Arthralg ia of hip, unspecified laterality M25.559 ; Allergic rhinitis J30.9 and Hormone replacement therapy Z79.890 [facility] [address] [facility] [id number] [address] [place] [address] Nov, Other seasonal allergic rhin itis J30.2 [place] [address] [facility] [id number] [address] [place] [address] October, Major depressive disorder, r ecurrent episode, moderate F33.1 [place] [address] [place] [id number] [address] [place] [address] October, Major depressive disorder, r ecurrent episode, moderate F33.1 and Arthralgia of hip, unspecified laterality M25.559 [place] [address] [place] [id number] [address] [place] [address] October, Grief F43.20 ; Hypertension I10 ; Hyperlipidemia, unspecified hyperlipidemia type E78.5 ; Other chronic pain G89.29 and Allergic rhinitis, unspecified allergic rhinitis type J30.9 [place] [address] [facility] [id number] [address] [place] [address] October, Major depressive disorder, r ecurrent episode, moderate F33.1 [place] [address] [facility] [id number] [address] [place] [address] Sep, Major depressive disorder, r ecurrent episode, moderate F33.1 [place] [address] [place] [id number] [address] [place] [address] Sep, [facility] [address] [facility] [id number] [address] [place] [address] Sep, Major depressive disorder, r ecurrent episode, moderate F33.1 [facility] [address] [facility] [id number] [address] [place] [address] Sep, Grief F43.20 [facility] [address] [place] [id number] [address] [place] [address] Aug, Major depressive disorder, r ecurrent episode, moderate F33.1 [place] [address] [place] [id number] [address] [place] [address] Aug, Bipolar 1 disorder, mixed F3 1.60 [place] [address] [place] [id number] [address] [place] [address] Aug, Allergic rhinitis J30.9 ; Ce rvicalgia M54.2 and Low back pain M54.5 [place] [address] [place] [id number] [address] [place] [address] Aug, Major depressive disorder, r ecurrent episode, moderate F33.1 [facility] [address] [place] [id number] [address] [place] [address] Aug, Sinusitis J32.9 and Tobacco 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 [facility] [address] [place] [id number] [address] [place] [address] Aug, [facility] [address] [place] [address] Aug, Depressive disorder, not els ewhere classified F32.9 ; Hormone replacement therapy Z79.[address] scan, head R93.0 [place] [address] [place] [id number] [address] [place] [address] Aug, Major depressive disorder, r ecurrent episode, moderate F33.1 [facility] [address] [place] [id number] [address] [place] [address] Jul, Major depressive disorder, r ecurrent episode, moderate F33.1 [facility] [address] [facility] [id number] [address] [place] [address] Jul, Abdominal pain R10.9 and Hyp ertension I10 [facility] [address] [facility] [id number] [address] [place] [address] Jul, [facility] [address] [place] [id number] [place] [address] Jul, Major depressive disorder, r ecurrent episode, moderate F33.1 [facility] [address] [facility] [id number] [address] [place] [address] Jul, [facility] [address] [place] [id number] [address] [place] [address] Jul, [facility] [address] [place] [id number] [address] [place] [address] Jun, [facility] [address] [place] [id number] [address] [place] [address] Jun, Depressive disorder, not els ewhere classified F32.9 [facility] [address] [facility] [id number] [address] [place] [address] Jun, [facility] [id number] [place] [address] Jun, [facility] [address] [place] [address] Jun, Arthralgia of hip, unspecifi ed laterality M25.559 ; Bruising, spontaneous R23.3 and Night sweats R61 [facility] [address] [facility] [id number] [address] [place] [address] Jun, [facility] [address] [facility] [id number] [address] [place] [address] Jun, [facility] [address] [place] [id number] [address] [place] [address] May, [facility] [address] [facility] [id number] [address] [place] [id number] May, Myalgia M79.1 and Screening, lipid Z13.220 [facility] [address] [id number] [address] [place] [address] Apr, Status post cervical spinal fusion Z98.1 ; Fibromyalgia M79.7 and Unsteady gait R26.81 [facility] [address] [id number] [address] [place] [address] Nov, [facility] [address] [id number] [address] [place] [address] Nov, [facility] [address] [id number] [address] [place] [address] October, [facility] [address] [facility] [id number] [address] [place] [address] October, [facility] [address] [facility] [id number] [address] [place] [address] October, [facility] [address] [facility] [id number] [address] [place] [address] October, [facility] [address] [facility] [id number] [address] [place] [address] October, [facility] [address] [facility] [id number] [address] [place] [address] October, Dysuria 788.1 ; Nausea 787.0 2 and Urinary tract infection 599.0 [facility] [address] [facility] [id number] [address] [place] [address] Sep, [facility] [address] [facility] [id number] [address] [place] [address] Sep, [facility] [address] [facility] [id number] [address] [place] [address] Aug, [facility] [address] [facility] [id number] [address] [place] [address] 25 Aug, 2014 [facility] [address] [id number] [address] [place] [address], [place] [address] 24 Aug, 2014 [facility] [address] [id number] [address] [place] [address], [place] [address] 24 Aug, 2014 [facility] [address] [id number] [address] [place] [address], [place] [address] 23 Aug, 2014 [facility] [address] [id number] [address] [place] [address], [place] [address] 19 Aug, 2014 [facility] [address] [id number] [address] [place] [address], [place] [address] 19 Aug, 2014 [facility] [address] [id number] [address] [place] [address], [place] [address] 19 Aug, 2014 [facility] [address] [id number] [address] [place] [address], [place] [address] 19 Aug, 2014 [facility] [address] [id number] [address] [place] [address], [place] [address] 18 Aug, 2014 [facility] [address] [id number] [address] [place] [address], [place] [address] 18 Aug, 2014 [facility] [address] [id number] [address] [place] [address], [place] [address] 13 Aug, 2014 [facility] [address] [id number] [address] [place] [address], [place] [address] 13 Aug, 2014 [facility] [address] [id number] [address] [place] [address], [place] [address] 11 Aug, 2014 [facility] [address] [id number] [address] [place] [address], [place] [address] 11 Aug, 2014 [facility] [address] [id number] [address] [place] [address], [place] [address] 06 Aug, 2014 [facility] [address] [id number] [address] [place] [address], [place] [address] 06 Aug, 2014 [facility] [address] [id number] [address] [place] [address], [place] [address] 05 Aug, 2014 [facility] [address] [id number] [address] [place] [address], [place] [address] 05 Aug, 2014 [facility] [address] [id number] [address] [place] [address], [place] [address] Aug, 2014 [facility] [address] [id number] [address] [place] [address], [place] [address] Aug, 2014 [facility] [address] [id number] [address] [place] [address], [place] [address] Aug, [facility] [address] [id number] [address] [place] [address], [place] [address] Jul, 2014 [facility] [address] [id number] [address] [place] [address], [place] [address] Jul, 2014 [facility] [address] [id number] [address] [place] [address], [place] [address] Jul, 2014 [facility] [address] [id number] [address] [place] [address], [place] [address] Jul, [facility] [address] [id number] [address] [place] [address], [place] [address] Jul, [facility] [address] [id number] [address] [place] [address], [place] [address] Jul, [facility] [address] [id number] [address] [place] [address], [place] [address] Jul, 2014 [facility] [address] [id number] [address] [place] [address], [place] [address] Jul, 2014 [facility] [address] [id number] [address] [place] [address], [place] [address] Jul, 2014 [facility] [address] [id number] [address] [place] [address], [place] [address] Jul, 2014 [facility] [address] [id number] [address] [place] [address], [place] [address] Jul, 2014 [facility] [address] [id number] [address] [place] [address], [place] [address] Jul, 2014 [facility] [address] [id number] [address] [place] [address], [place] [address] Jul, 2014 [facility] [address] [id number] [address] [place] [address], [place] [address] Jul, [facility] [address] [id number] [address] [place] [address], [place] [address] Jun, [facility] [address] [id number] [address] [place] [address], [place] [address] Jun, [facility] [address] [id number] [address] [place] [address], [place] [address] Jun, [facility] [address] [id number] [address] [place] [address], [place] [address] Jun, [facility] [address] [id number] [address] [place] [address], [place] [address] Jun, [facility] [address] [id number] [address] [place] [address], [place] [address] Jun, [facility] [address] [id number] [address] [place] [address], [place] [address] May, [facility] [address] [id number] [address] [place] [address], [place] [address] May, [facility] [address] [id number] [address] [place] [address], [place] [address] May, [facility] [address] [id number] [address] [place] [address], [place] [address] May, [facility] [address] [id number] [address] [place] [address], [place] [address] May, [facility] [address] [id number] [address] [place] [address], [place] [address] May, [facility] [address] [id number] [address] [place] [address], [place] [address] Apr, [facility] [address] [id number] [address] [place] [address], [place] [address] Apr, [facility] [address] [id number] [address] [place] [address], [place] [address] Apr, [facility] [address] [id number] [address] [place] [address], [place] [address] Apr, [facility] [address] [id number] [address] [place] [address], [place] [address] Apr, [facility] [address] [id number] [address] [place] [address], [place] [address] Apr, [facility] [address] [id number] [address] [place] [address], [place] [address] Mar, [facility] [address] [id number] [address] [place] [address], [place] [address] Mar, [facility] [address] [id number] [address] [place] [address], [place] [address] Mar, [facility] [address] [id number] [address] [place] [address] Mar, [facility] [address] [id number] [address] [place] [address] Mar, [facility] [address] [id number] [address] [place] [address] Mar, [facility] [address] [id number] [address] [place] [address] Mar, [facility] [address] [id number] [address] [place] [address] Mar, [facility] [address] [id number] [address] [place] [address] Mar, [facility] [address] [id number] [address] [place] [address] Mar, [facility] [address] [id number] [address] [place] [address], [place] [address] Mar, [facility] [address] [id number] [address] [place] [address], [place] [address] Mar, [facility] [address] [id number] [address] [place] [address], [place] [address] 30 Feb, 2014 [facility] [address] [id number] [address] [place] [address], [place] [address] Feb, [facility] [address] [id number] [address] [place] [address], [place] [address] Feb, [facility] [address] [id number] [address] [place] [address], [place] [address] Feb, [facility] [address] [id number] [address] [place] [address], [place] [address] Feb, [facility] [address] [id number] [address] [place] [address], [place] [address] Feb, [facility] [address] [id number] [address] [place] [address], [place] [address] Feb, [facility] [address] [id number] [address] [place] [address], [place] [address] Jan, [facility] [address] [id number] [address] [place] [address], [place] [address] Jan, [facility] [address] [id number] [address] [place] [address], [place] [address] Jan, [facility] [address] [id number] [address] [place] [address], [place] [address] Dec, [facility] [address] [id number] [address] [place] [address], [place] [address] Dec, [facility] [address] [id number] [address] [place] [address], [place] [address] Dec, [facility] [address] [id number] [address] [place] [address], [place] [address] Dec, [facility] [address] [id number] [address] [place] [address], [place] [address] Sep, [facility] [address] [id number] [address] [place] [address], [place] [address] Sep, [facility] [address] [id number] [address] [place] [address], [place] [address] Sep, [facility] [address] [id number] [address] [place] [address], [place] [address] Sep, [facility] [address] [id number] [address] [place] [address], [place] [address] Sep, [facility] [address] [id number] [address] [place] [address], [place] [address] Sep, [facility] [address] [id number] [address] [place] [address], [place] [address] Sep, [facility] [address] [id number] [address] [place] [address], [place] [address] Sep, [facility] [address] [id number] [address] [place] [address], [place] [address] Aug, [facility] [address] [id number] [address] [place] [address], [place] [address] Aug, [facility] [address] [id number] [address] [place] [address], [place] [address] May, [facility] [address] [id number] [address] [place] [address], [place] [address] May, [facility] [address] [id number] [address] [place] [address], [place] [address] Apr, [facility] [address] [id number] [address] [place] [address], [place] [address] Apr, [facility] [address] [id number] [address] [place] [address], [place] [address] Apr, [facility] [address] [id number] [address] [place] [address], [place] [address] Apr, [facility] [address] [id number] [address] [place] [address], [place] [address] Apr, [facility] [address] [id number] [address] [place] [address], [place] [address] Apr, [facility] [address] [id number] [address] [place] [address], [place] [address] May, [facility] [address] [id number] [address] [place] [address], [place] [address] 18 May, 2012 [facility] [address] [id number] [address] [place] [address], [place] [address] 15 May, 2012 [facility] [address] [id number] [address] [place] [address], [place] [address] May, [facility] [address] [id number] [address] [place] [address], [place] [address] May, [facility] [address] [id number] [address] [place] [address], [place] [address] May, [facility] [address] [id number] [address] [place] [address], [place] [address] Apr, [facility] [address] [id number] [address] [place] [address], [place] [address] Apr, [facility] [address] [id number] [address] [place] [address], [place] [address] Apr, [facility] [address] [id number] [address] [place] [address], [place] [address] Apr, [facility] [address] [id number] [address] [place] [address], [place] [address] Apr, [facility] [address] [id number] [address] [place] [address], [place] [address] Apr, [facility] [address] [id number] [address] [place] [address], [place] [address] 07 Apr, 2012 [facility] [address] [id number] [address] [place] [address], [place] [address] Apr, [facility] [address] [id number] [address] [place] [address], [place] [address] Apr, [facility] [address] [id number] [address] [place] [address], [place] [address] Apr, [facility] [address] [id number] [address] [place] [address], [place] [address] Mar, [facility] [address] [id number] [address] [place] [address], [place] [address] Mar, [facility] [address] [id number] [address] [place] [address], [place] [address] Mar, [facility] [address] [id number] [address] [place] [address], [place] [address] Mar, [facility] [address] [id number] [address] [place] [address], [place] [address] Mar, [facility] [address] [id number] [address] [place] [address], [place] [address] Mar, [facility] [address] [id number] [address] [place] [address], [place] [address] Mar, [facility] [address] [id number] [address] [place] [address], [place] [address] Mar, [facility] [address] [id number] [address] [place] [address], [place] [address] Mar, [facility] [address] [id number] [address] [place] [address], [place] [address] 25 Feb, 2012 [facility] [address] [id number] [address] [place] [address], [place] [address] 16 Sep2011 [facility] [address] [id number] [address] [place] [address], [place] [address] 11 Feb, 2012 [facility] [address] [id number] [facility] [place] [address] Jan, [facility] [address] [id number] [address] [place] [address], [place] [address] Jan, [facility] [address] [id number] [address] [place] [address], [place] [address] Jan, [facility] [address] [id number] [address] [place] [address], [place] [address] Jan, [facility] [address] [id number] [address] [place] [address], [place] [address] Jan, [facility] [address] [id number] [address] [place] [address], [place] [address] Jan, [facility] [address] [id number] [address] [place] [address], [place] [address] Jan, [facility] [address] [id number] [address] [place] [address], [place] [address] Jan, [facility] [address] [id number] [address] [place] [address], [place] [address] Jan, [facility] [address] [id number] [address] [place] [address], [place] [address] Jan, [facility] [address] [id number] [address] [place] [address], [place] [address] Dec, [facility] [address] [id number] [address] [place] [address], [place] [address] Dec, [facility] [address] [id number] [address] [place] [address], [place] [address] Dec, [facility] [address] [id number] [address] [place] [address], [place] [address] Dec, [facility] [address] [id number] [address] [place] [address], [place] [address] Nov, [facility] [address] [id number] [address] [place] [address], [place] [address] 08 Nov, 2011 [facility] [address] [id number] [address] [place] [address] Nov, [facility] [address] [id number] [address] [place] [address] October, [facility] [address] [id number] [address] [place] [address] October, [facility] [address] [id number] [address] [place] [address] October, [facility] [address] [id number] [address] [place] [address] October, [facility] [address] [id number] [address] [place] [address] October, [facility] [address] [id number] [address] [place] [address] October, [facility] [address] [id number] [address] [place] [address] Aug, [facility] [address] [id number] [address] [place] [address] Mar, [facility] [address] [id number] [address] [place] [address] Nov, [facility] [address] [id number] [address] [place] [address] May, [facility] [address] [id number] [address] [place] [address] May, [facility] [address] [id number] [address] [place] [address] Apr, [facility] [address] [id number] [address] [place] [address] Mar, [facility] [address] [id number] [address] [place] [address] Mar, IMMUNIZATIONS No Known Immunizations SOCIAL HISTORY [...]
--- OUTSIDE RECORDS SUMMARY | 2019-06-19 05:13 | XMS REPORT ---
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 Name Role Phone NAHOMY HANCOCK Unavailable PROBLEMS Type Condition ICD9-CM Code BGL88-XP Code Onset Dates Condition S tatus SNOMED Code Problem Age-related osteoporosis without current pathological fracture M81.0 Active 87683721 Problem Sensorineural hearing loss (SNHL) of both ears H90 .3 Active 204598348 Problem Abnormal CT scan, head R93.0 Active 281626608 Problem Arthralgia of hip, unspecified laterality M25.559 Active 60705081 Problem Bruising, spontaneous R23.3 Active 784092350 Problem Hypertension I10 Active 7529229 3 Problem Night sweats R61 Active 7096954 0 Problem Imbalance R26.89 Active 267546134 Problem Hammer toe of right foot M20.41 Activ e 361712719 Problem Hormone replacement therapy Z79.890 Ac tive 947155426 Problem Bipolar 1 disorder, mixed F31.60 Acti ve 81143934 Problem Gastritis without bleeding, unspecified chronicity, unspecified gastritis type K29.70 Active 878303762 Problem Ataxia R27.0 Active 74385993 Problem Hearing loss, unspecified laterality H91.90 Active 46613849 Problem History of colon polyps Z86.010 Active 345247858 Problem Allergic rhinitis J30.9 Active 61 244725 Problem Hematuria, unspecified type R31.9 Ac tive 72210388 Problem Generalized anxiety disorder F41.1 A ctive 16342560 Problem Major depressive disorder, recurrent episode, moderate F33.1 Active 304584387 Problem Fibromyalgia M79.7 Active 7793899 7 Problem Bladder spasm N32.89 Active 552842 006 Problem Tobacco use disorder F17.200 Active 393814057 Problem Other chronic pain G89.29 Active 8 8579483 Problem Post menopausal syndrome N95.1 Activ e 821351944 Problem Grief F43.20 Active 78032026 Problem Hyperlipidemia, unspecified hyperlipidemia type E7 8.5 Active 71007211 Problem Acute left-sided low back pain with left-sided sciatica M54.42 Active 441489394 Problem Sciatica of left side M54.32 Active 87494289 Problem Plantar wart of right foot B07.0 Act mitchell [id number] Problem Slow transit constipation K59.01 Acti ve 03087885 ALLERGIES No Information ENCOUNTERS Encounter Location Date Diagnosis [place] [address] [place] [id number] [place] [address] Jan, [facility] [address] [address] Dec, [place] [address] [address] Dec, [place] [address] [address] Dec, Bipolar 1 disorder, mixed F3 1.60 [place] [address] [place] [id number] [place] [address] Nov, Bipolar 1 disorder, mixed F3 1.60 [place] [address] [address] Nov, Bipolar 1 disorder, mixed F3 1.60 ; Generalized anxiety disorder F41.1 ; Tobacco use disorder F17.200 and Other mcfp (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 Z79.899 [place] [address] [place] [id number] [place] [address] Nov, [facility] [address] [place] [id number] [address] [place] [address] Nov, Bipolar 1 disorder, mixed F3 1.60 [place] [address] [place] [id number] [address] [place] [address] October, Bipolar 1 disorder, mixed F3 1.60 [place] [address] [address] October, Bipolar 1 disorder, mixed F3 1.60 [place] [address] [place] [address] October, [place] [address] [place] [address] October, Bipolar 1 disorder, mixed F3 1.60 ; Generalized anxiety disorder F41.1 and Tobacco use disorder F17.200 [place] [address] [place] [address] Sep, [place] [address] [place] [id number] [address] [place] [address] Sep, Encounter for Medicare [facility] wellness exam Z00.00 ; Major depressive disorder, recurrent episode, moderate F33.1 ; Allergic rhinitis J30.9 ; Bipolar 1 disorder, mixed F31.60 ; Fibromyalgia M79.7 ; Hyperlipidemia, unspecified hyperlipidemia type E78.5 ; Hormone replacement therapy Z79.890 ; Encounter for screening for lung cancer Z12.2 and Tobacco use disorder F17.200 [place] [address] [place] [address] Sep, Bipolar 1 disorder, mixed F3 1.60 [place] [address] [place] [id number] [place] [address] Sep, Other chronic pain G89.29 ; Hyperlipidemia, unspecified hyperlipidemia type E78.5 ; Breast cancer screening Z12.31 and Post menopausal syndrome N95.1 [place] [address] [place] [id number] [address] [place] [address] Sep, Bipolar 1 disorder, mixed F3 1.60 [place] [address] [place] [id number] [address] [place] [address] Sep, Bipolar 1 disorder, mixed F3 1.60 ; Generalized anxiety disorder F41.1 and Tobacco use disorder F17.200 [place] [address] [place] [id number] [address] [place] [address] Sep, Gastritis without bleeding, unspecified chronicity, unspecified gastritis type K29.70 [place] [address] [facility] [id number] [address] [place] [address] 08 Sep, 2018 Exercise counseling Z71.82 [place] [address] [facility] [id number] [address] [place] [address] Aug, Exercise counseling Z71.82 [place] [address] [facility] [id number] [address] [place] [address] Aug, Bipolar 1 disorder, mixed F3 1.60 [place] [address] [facility] [id number] [address] [place] [address] Aug, Exercise counseling Z71.82 [place] [address] [place] [id number] [address] [place] [address] Aug, Bipolar 1 disorder, mixed F3 1.60 [place] [address] [place] [id number] [address] [place] [address] Aug, Gastritis without bleeding, unspecified chronicity, unspecified gastritis type K29.70 ; Tobacco abuse Z72.0 ; Generalized anxiety disorder F41.1 and Weight gain R63.5 [place] [address] [place] [id number] [address] [place] [address] Aug, Bipolar 1 disorder, mixed F3 1.60 ; Generalized anxiety disorder F41.1 and Tobacco use disorder F17.200 [place] [address] [place] [id number] [address] [place] [address] Jul, Bipolar 1 disorder, mixed F3 1.60 [place] [address] [facility] [id number] [address] [place] [address] Jul, [place] [address] [place] [id number] [address] [place] [address] Jul, Bipolar 1 disorder, mixed F3 1.60 [place] [address] [place] [id number] [address] [place] [address] 11 Jul, 2018 Allergic rhinitis J30.9 ; Ma darion depressive disorder, recurrent episode, moderate F33.1 and Tobacco 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 [facility] [address] [facility] [id number] [address] [place] [address] Jun, [facility] [address] [facility] [id number] [address] [place] [address] Jun, [facility] [address] [facility] [id number] [address] [place] [address] Jun, Bipolar 1 disorder, mixed F3 1.60 [facility] [address] [facility] [id number] [address] [place] [address] Jun, Bipolar 1 disorder, mixed F3 1.60 [facility] [address] [facility] [id number] [address] [place] [address] Jun, Bipolar 1 disorder, mixed F3 1.60 [facility] [address] [facility] [id number] [address] [place] [address] Jun, Generalized anxiety disorder F41.1 ; Tobacco abuse Z72.0 and Major depressive disorder, recurrent episode, moderate F33.1 [facility] [address] [facility] [id number] [address] [place] [address] May, Bipolar 1 disorder, mixed F3 1.60 [facility] [address] [facility] [id number] [address] [place] [address] May, Bipolar 1 disorder, mixed F3 1.60 and Generalized anxiety disorder F41.1 [facility] [address] [facility] [id number] [address] [place] [address] May, Bipolar 1 disorder, mixed F3 1.60 [facility] [address] [facility] [id number] [address] [place] [address] May, Allergic rhinitis J30.9 [facility] [address] [facility] [id number] [address] [place] [address] May, Bipolar 1 disorder, mixed F3 1.60 [facility] [address] [facility] [id number] [address] [place] [address] May, [facility] [address] [place] [id number] [address] [place] [address] Apr, Allergic rhinitis J30.9 ; Dy sfunction of both eustachian tubes H69.83 ; History of bladder surgery Z98.890 and Cervicalgia M54.2 [facility] [address] [place] [id number] [address] [place] [address] Mar, Bipolar 1 disorder, mixed F3 1.60 [place] [address] [place] [id number] [place] [address] Mar, [place] [address] [address] Mar, Slow transit constipation K5 9.01 ; Encounter for immunization Z23 and Generalized anxiety disorder F41.1 [place] [address] [place] [id number] [place] [address] 27 Feb, 2018 Bipolar 1 disorder, mixed F3 1.60 [place] [address] [place] [id number] [address] [place] [address] 26 Feb, 2018 Allergic rhinitis J30.9 [place] [address] [place] [id number] [place] [address] 24 Feb, 2018 Bipolar 1 disorder, mixed F3 1.60 [place] [address] [place] [id number] [place] [address] 20 Feb, 2018 Bipolar 1 disorder, mixed F3 1.60 and Generalized anxiety disorder F41.1 [place] [address] [place] [id number] [address] [place] [address] 13 Feb, 2018 Bipolar 1 disorder, mixed F3 1.60 [place] [address] [place] [id number] [place] [address] 11 Feb, 2018 Allergic rhinitis J30.9 [facility] [address] [place] [id number] [address] [place] [address] 05 Feb, 2018 [place] [address] [place] [id number] [place] [address] Jan, Bipolar 1 disorder, mixed F3 1.60 [facility] [address] [facility] [id number] [address] [place] [address] Jan, Low back pain M54.5 ; Hyperl ipidemia, unspecified hyperlipidemia type E78.5 and Bipolar 1 disorder, mixed F31.60 [facility] [address] [facility] [id number] [address] [place] [address] Jan, Bipolar 1 disorder, mixed F3 1.60 [facility] [address] [facility] [id number] [address] [place] [address] Jan, Bipolar 1 disorder, mixed F3 1.60 [place] [address] [place] [id number] [address] [place] [address] Jan, Bipolar 1 disorder, mixed F3 1.60 [place] [address] [place] [id number] [address] [place] [address] Jan, Bipolar 1 disorder, mixed F3 1.60 [facility] [address] [place] [id number] [address] [place] [address] Dec, Bipolar 1 disorder, mixed F3 1.60 ; Generalized anxiety disorder F41.1 and Other long term care social worker (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 Z79.899 [place] [address] [place] [id number] [address] [place] [address] Dec, Other mcfp (current) dr ug therapy Z79.899 [facility] [address] [facility] [id number] [address] [place] [address] Dec, Bipolar 1 disorder, mixed F3 1.60 [place] [address] [facility] [id number] [address] [place] [address] Dec, Bipolar 1 disorder, mixed F3 1.60 [facility] [address] [place] [id number] [address] [place] [address] Nov, Bipolar 1 disorder, mixed F3 1.60 [place] [address] [facility] [id number] [address] [place] [address] Nov, Bipolar 1 disorder, mixed F3 1.60 [facility] [address] [place] [id number] [address] [place] [address] Nov, Bipolar 1 disorder, mixed F3 1.60 [facility] [address] [facility] [id number] [address] [place] [address] 11 Nov, 2017 Allergic rhinitis J30.9 [facility] [address] [place] [id number] [address] [place] [address] Nov, Allergic rhinitis J30.9 [facility] [address] [place] [id number] [place] [address] Nov, [facility] [address] [address] Nov, Bipolar 1 disorder, mixed F3 1.60 [place] [address] [address] Nov, Fibromyalgia M79.7 and Aller gic rhinitis J30.9 [facility] [address] [place] [address] October, Bipolar 1 disorder, mixed F3 1.60 [facility] [address] [place] [id number] [place] [address] October, Acute nasopharyngitis J00 [facility] [address] [address] October, Bitten or stung by nonvenomo us insect and other nonvenomous arthropods, initial encounter W57.XXXA and Insect bite (nonvenomous) of abdominal wall, initial encounter S30.861A [place] [address] [place] [id number] [place] [address] October, Insect bite (nonvenomous) of abdominal wall, initial encounter S30.861A ; Bitten or stung by nonvenomous insect and other nonvenomous arthropods, initial encounter W57.XXXA ; Allergic rhinitis J30.9 and Low back pain M54.5 [facility] [address] [id number] [address] [place] [address] October, Bipolar 1 disorder, mixed F3 1.60 [facility] [address] [id number] [address] [place] [address] October, [facility] [address] [id number] [address] [place] [address] October, [facility] [address] [id number] [address] [place] [address] October, Bipolar 1 disorder, mixed F3 1.60 [facility] [address] [id number] [address] [place] [address] Sep, Bipolar 1 disorder, mixed F3 1.60 [facility] [address] [id number] [address] [place] [address] Sep, Other chronic pain G89.29 [facility] [address] [id number] [address] [place] [address] Sep, [facility] [address] [id number] [address] [place] [address] Sep, Bipolar 1 disorder, mixed F3 1.60 [facility] [address] [facility] [id number] [address] [place] [address] Sep, Allergic rhinitis J30.9 and Sciatica of left side M54.32 [facility] [address] [id number] [address] [place] [address] Sep, Bipolar 1 disorder, mixed F3 1.60 [facility] [address] [id number] [address] [place] [address] Sep, Bipolar 1 disorder, mixed F3 1.60 and Generalized anxiety disorder F41.1 [facility] [address] [id number] [address] [place] [address] Aug, [facility] [address] [facility] [id number] [address] [place] [address] Aug, Bipolar 1 disorder, mixed F3 1.60 [facility] [address] [id number] [address] [place] [address] Aug, Bipolar 1 disorder, mixed F3 1.60 [facility] [address] [facility] [id number] [address] [place] [address] Aug, [facility] [address] [facility] [id number] [address] [place] [address] Aug, Generalized anxiety disorder F41.1 [facility] [address] [id number] [address] [place] [address] Aug, Bipolar 1 disorder, mixed F3 1.60 [facility] [address] [facility] [id number] [address] [place] [address] Aug, Plantar wart of right foot B 07.0 [facility] [address] [facility] [id number] [address] [place] [address] Aug, Bipolar 1 disorder, mixed F3 1.60 [facility] [address] [facility] [id number] [address] [place] [address] Jul, Bipolar 1 disorder, mixed F3 1.60 [facility] [address] [facility] [id number] [address] [place] [address] Jul, [facility] [address] [facility] [id number] [address] [place] [address] 14 Jul, 2017 Bipolar 1 disorder, mixed F3 1.60 [facility] [address] [facility] [id number] [address] [place] [address] Jul, Generalized anxiety disorder F41.1 [facility] [address] [facility] [id number] [address] [place] [address] Jul, Bipolar 1 disorder, mixed F3 1.60 [facility] [address] [facility] [id number] [address] [place] [address] Jul, Acute left-sided low back pa in with left-sided sciatica M54.42 [place] [address] [place] [address] 05 Jul, 2017 Coccydynia M53.3 [place] [address] [place] [id number] [address] [place] [address] Jun, Bipolar 1 disorder, mixed F3 1.60 [facility] [place] [id number] [place] [address] Jun, Acute nasopharyngitis J00 [place] [address] [place] [id number] [place] [address] Jun, Bipolar 1 disorder, mixed F3 1.60 [place] [address] [address] Jun, Fibromyalgia M79.7 [place] [address] [address] Jun, Bipolar 1 disorder, mixed F3 1.60 [place] [address] [address] Jun, Fibromyalgia M79.7 and Bipol ar 1 disorder, mixed F31.60 [place] [address] [address] May, Bipolar 1 disorder, mixed F3 1.60 ; Generalized anxiety disorder F41.1 and Other mcfp (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 Z79.899 [place] [address] [place] [address] May, Bipolar 1 disorder, mixed F3 1.60 [facility] [address] [place] [address] 14 May, 2017 Cough R05 and Body aches R52 [facility] [place] [address] [place] [id number] [place] [address] 10 May, 2017 Bladder spasm N32.89 [address]u te cystitis without hematuria N30.00 [place] [address] [address] 07 May, 2017 Bipolar 1 disorder, mixed F3 1.60 [facility] [address] [place] [address] 30 Apr, 2017 [facility] [address] [address] Apr, Major depressive disorder, r ecurrent episode, moderate F33.1 and Encounter for immunization Z23 [facility] [address] [address] 29 Apr, 2017 Bipolar 1 disorder, mixed F3 1.60 [place] [address] [place] [address] Apr, Bipolar 1 disorder, mixed F3 1.60 [place] [address] [address] 16 Apr, 2017 Bipolar 1 disorder, mixed F3 1.60 [facility] [address] [address] 13 Apr, 2017 Yeast vaginitis B37.3 [place] [address] [address] 09 Apr, 2017 Bipolar 1 disorder, mixed F3 1.60 [facility] [address] [address] 07 Apr, [address] for immunization Z23 [facility] [address] [address] 02 Apr, 2017 Bipolar 1 disorder, mixed F3 1.60 [facility] [address] [address] Mar, Bipolar 1 disorder, mixed F3 1.60 [place] [address] [address] Mar, Bipolar 1 disorder, mixed F3 1.60 [facility] [address] [place] [address] Mar, Imbalance R26.89 and Encount er for immunization Z23 [place] [address] [place] [address] Mar, Generalized anxiety disorder F41.1 [place] [address] [address] Mar, Bipolar 1 disorder, mixed F3 1.60 [place] [address] [address] Mar, Generalized anxiety disorder F41.1 [place] [address] [place] [address] Mar, Bipolar 1 disorder, mixed F3 1.60 [place] [address] [address] Mar, Bipolar 1 disorder, mixed F3 1.60 [place] [address] [address] Feb, Bipolar 1 disorder, mixed F3 1.60 [place] [address] [address] Feb, Bipolar 1 disorder, mixed F3 1.60 and Generalized anxiety disorder F41.1 [place] [address] [address] Feb, Gastritis without bleeding, unspecified chronicity, unspecified gastritis type K29.70 ; Hammer toe of right foot M20.41 and Other viral warts B07.8 [place] [address] [address] 20 Feb, 2017 Bipolar 1 disorder, mixed F3 1.60 [place] [address] [address] 13 Feb, 2017 Bipolar 1 disorder, mixed F3 1.60 [place] [address] [address] 05 Feb, 2017 Bipolar 1 disorder, mixed F3 1.60 [facility] [address] [facility] [id number] [address] [place] [address] 31 Jan, 2017 Encounter for screening mamm ogram for breast cancer Z12.31 ; Other viral warts B07.8 and Allergic rhinitis J30.9 [facility] [address] [facility] [id number] [address] [place] [address] Jan, Bipolar 1 disorder, mixed F3 1.60 [facility] [address] [facility] [id number] [address] [place] [address] Jan, Bipolar 1 disorder, mixed F3 1.60 [place] [address] [facility] [id number] [address] [place] [address] Jan, [place] [address] [facility] [id number] [address] [place] [address] Jan, Bipolar 1 disorder, mixed F3 1.60 [place] [address] [facility] [id number] [address] [place] [phone] Jan, Bipolar 1 disorder, mixed F3 1.60 [place] [id number] [facility] [id number] [address] [place] [phone] Jan, Allergic rhinitis J30.9 ; He maturia R31.9 and Colon cancer screening Z12.11 [facility] [address] [facility] [id number] [address] [place] [phone] Dec, Bipolar 1 disorder, mixed F3 1.60 [facility] [address] [facility] [id number] [address] [place] [phone] 18 Dec, 2016 Bipolar 1 disorder, mixed F3 1.60 ; Generalized anxiety disorder F41.1 and Other mcfp (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 Z79.899 [facility] [address] [facility] [id number] [address] [place] [phone] Dec, Bipolar 1 disorder, mixed F3 1.60 [facility] [address] [place] [id number] [address] [place] [phone] Dec, Bipolar 1 disorder, mixed F3 1.60 [facility] [address] [facility] [id number] [address] [place] [phone] Dec, Bipolar 1 disorder, mixed F3 1.60 [facility] [address] [facility] [id number] [address] [place] [phone] Dec, Low back pain M54.5 and Recu rrent urinary tract infection N39.0 [facility] [address] [facility] [id number] [address] [place] [phone] Nov, Bipolar 1 disorder, mixed F3 1.60 [facility] [address] [facility] [id number] [address] [place] [phone] Nov, Bipolar 1 disorder, mixed F3 1.60 [facility] [address] [facility] [id number] [address] [place] [phone] Nov, Bipolar 1 disorder, mixed F3 1.60 [place] [facility] [address] [facility] [id number] [address] [place] [address] Nov, Bipolar 1 disorder, mixed F3 1.60 [facility] [address] [facility] [id number] [address] [place] [address] Nov, [facility] [address] [facility] [id number] [address] [place] [address] Nov, Anesthesia of skin R20.0 ; F requent UTI N39.0 ; Tobacco abuse Z72.0 and Colon cancer screening Z12.11 [facility] [address] [facility] [id number] [address] [place] [address] Nov, Bipolar 1 disorder, mixed F3 1.60 [facility] [address] [facility] [id number] [address] [place] [address] October, Bipolar 1 disorder, mixed F3 1.60 [facility] [address] [facility] [id number] [address] [place] [address] October, Bipolar 1 disorder, mixed F3 1.60 [facility] [address] [facility] [id number] [address] [place] [address] October, Bipolar 1 disorder, mixed F3 1.60 [place] [address] [address] October, Bipolar 1 disorder, mixed F3 1.60 [place] [address] [address] October, Bipolar 1 disorder, mixed F3 1.60 [place] [address] [address] October, Cervicalgia M54.2 and Bipola r 1 disorder, mixed F31.60 [place] [address] [address] October, Hypertension I10 ; Hyperlipi demia, unspecified hyperlipidemia type E78.5 and Family history of thyroid disease Z83.49 [place] [address] [address] October, [place] [address] [address] October, Hypertension I10 ; Hyperlipi demia, unspecified hyperlipidemia type E78.5 and Family history of thyroid problem Z83.49 [place] [address] [address] October, Bipolar 1 disorder, mixed F3 1.60 [place] [address] [address] Sep, Bipolar 1 disorder, mixed F3 1.60 [place] [address] [place] [id number] [place] [address] Sep, Bipolar 1 disorder, mixed F3 1.60 [place] [address] [address] Sep, Bipolar 1 disorder, mixed F3 1.60 [place] [address] [address] Sep, History of colon polyps Z86. 010 and Hematochezia K92.1 [facility] [address] [place] [address] Sep, Major depressive disorder, r ecurrent episode, moderate F33.1 [facility] [address] [place] [id number] [address] [place] [address] Sep, Bipolar 1 disorder, mixed F3 1.60 [facility] [address] [place] [id number] [address] [place] [address] Aug, Hot flashes due to menopause N95.1 [facility] [address] [place] [id number] [place] [address] Aug, Bipolar 1 disorder, mixed F3 1.60 [facility] [address] [address] Aug, [facility] [address] [address] Aug, Bipolar 1 disorder, mixed F3 1.60 [facility] [address] [address] Aug, Bipolar 1 disorder, mixed F3 1.60 [facility] [address] [place] [id number] [place] [address] Aug, Hot flashes due to menopause N95.1 ; Cervicalgia M54.2 and Ataxia R27.0 [facility] [address] [place] [id number] [address] [place] [address] Jul, Bipolar 1 disorder, mixed F3 1.60 [facility] [address] [place] [id number] [address] [place] [address] Jul, Bipolar 1 disorder, mixed F3 1.60 [facility] [address] [place] [id number] [address] [place] [address] Jul, Bipolar 1 disorder, mixed F3 1.60 [facility] [address] [address] 13 Jul, 2016 Bipolar 1 disorder, mixed F3 1.60 [place] [address] [place] [address] 10 Jul, 2016 Bipolar 1 disorder, mixed F3 1.60 [place] [address] 08 Jul, 2016 Cervicalgia M54.2 ; Tremor R 25.1 ; Hearing abnormally acute, unspecified laterality H93.239 ; Alopecia L65.9 ; Encounter for immunization Z23 and Family history of thyroid disease Z83.49 [place] [address] 06 Jul, 2016 Bipolar 1 disorder, mixed F3 1.60 [place] [address] [place] [address] Jun, [place] [address] [place] [address] Jun, Hearing disorder, unspecifie d laterality H93.299 [place] [address] [place] [address] Jun, Bipolar 1 disorder, mixed F3 1.60 [place] [address] [address] Jun, Bipolar 1 disorder, mixed F3 1.60 [place] [address] [address] Jun, Allergic rhinitis J30.9 [place] [address] [address] Jun, Bipolar 1 disorder, mixed F3 1.60 [place] [address] [place] [address] Jun, Bipolar 1 disorder, mixed F3 1.60 [place] [address] [address] Jun, Allergic rhinitis J30.9 [facility] [address] [facility] [id number] [address] [place] [address] Jun, Allergic rhinitis J30.9 [facility] [address] [facility] [id number] [address] [place] [address] Jun, Bipolar 1 disorder, mixed F3 1.60 [facility] [address] [facility] [id number] [address] [place] [address] May, Bipolar 1 disorder, mixed F3 1.60 [facility] [address] [id number] [address] [place] [address] May, Bipolar 1 disorder, mixed F3 1.60 [facility] [address] [facility] [id number] [address] [place] [address] May, [facility] [address] [facility] [id number] [address] [place] [address] May, Bipolar 1 disorder, mixed F3 1.60 [facility] [address] [facility] [id number] [address] [place] [address] May, Bipolar 1 disorder, mixed F3 1.60 [facility] [address] [facility] [id number] [address] [place] [address] May, [facility] [address] [facility] [id number] [address] [place] [address] May, [facility] [address] [facility] [id number] [address] [place] [address] May, [facility] [address] [facility] [id number] [address] [place] [address] May, Abdominal pain, unspecified location R10.9 [facility] [address] [facility] [id number] [address] [place] [address] May, [facility] [address] [facility] [id number] [address] [place] [address] Apr, Hematuria R31.9 ; Ataxia R27 .0 and Hearing loss, unspecified laterality H91.90 [facility] [address] [place] [id number] [address] [place] [address] Apr, Bipolar 1 disorder, mixed F3 1.60 [facility] [address] [address] 11 Apr, 2016 Acute effusion of both middl e ears H65.193 [facility] [address] [address] 10 Apr, 2016 Hematuria R31.9 and Pyelonep hritis N12 [facility] [address] [address] Apr, [place] [address] [address] Mar, Bipolar 1 disorder, mixed F3 1.60 [facility] [address] [address] Mar, [facility] [address] [address] Mar, Bipolar 1 disorder, mixed F3 1.60 [place] [address] [address] Mar, Bipolar 1 disorder, mixed F3 1.60 [facility] [address] [address] Mar, Encounter for immunization Z 23 and Gastritis without bleeding, unspecified chronicity, unspecified gastritis type K29.70 [facility] [address] [address] Mar, Bipolar 1 disorder, mixed F3 1.60 and Grief F43.20 [place] [address] [address] Mar, Gastritis without bleeding, unspecified chronicity, unspecified gastritis type K29.70 [place] [address] [address] Mar, Bipolar 1 disorder, mixed F3 1.60 [place] [address] [facility] [id number] [address] [place], [place] [id number] Mar, Gastritis without bleeding, unspecified chronicity, unspecified gastritis type K29.70 [facility] [address] [facility] [id number] [address] [place] [address] Mar, [place] [address] [place] [id number] [address] [place], [place] [id number] Feb, Bipolar 1 disorder, mixed F3 1.60 [place] [address] [place] [id number] [address] [place], [place] [id number] Feb, Bipolar 1 disorder, mixed F3 1.60 and Grief F43.20 [place] [address] [place] [id number] [address] [place] [address] Feb, Gastritis without bleeding, unspecified chronicity, unspecified gastritis type K29.70 [place] [address] [place] [id number] [address] [place] [address] 14 Feb, 2016 Bipolar 1 disorder, mixed F3 1.60 [facility] [address] [place] [id number] [address] [place] [address] Feb, Gastroesophageal reflux dise ase, esophagitis presence not specified K21.9 [facility] [address] [place] [id number] [address] [place] [address] Jan, Bipolar 1 disorder, mixed F3 1.60 [place] [address] [place] [id number] [address] [place] [address] Jan, Bipolar 1 disorder, mixed F3 1.60 and Unsteady gait R26.81 [place] [address] [place] [id number] [address] [place] [address] Jan, Bipolar 1 disorder, mixed F3 1.60 [facility] [address] [place] [id number] [address] [place] [address] Jan, Bipolar 1 disorder, mixed F3 1.60 and Other mcfp (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 Z79.899 [facility] [address] [facility] [id number] [address] [place] [address] Jan, Bipolar 1 disorder, mixed F3 1.60 [facility] [address] [facility] [id number] [address] [place] [address] Jan, Bipolar 1 disorder, mixed F3 1.60 [place] [address] [place] [id number] [address] [place] [address] Jan, Bipolar 1 disorder, mixed F3 1.60 ; Grief F43.20 and Other mcfp (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 Z79.899 [place] [address] [place] [id number] [address] [place] [address] Jan, Bipolar 1 disorder, mixed F3 1.60 [place] [address] [place] [id number] [address] [place] [address] Dec, [place] [address] [place] [id number] [address] [place] [address] Dec, Bipolar 1 disorder, mixed F3 1.60 ; Vitamin D deficiency, unspecified E55.9 ; H/O allergic rhinitis Z87.09 ; Other chronic pain G89.29 and Dorsalgia, unspecified M54.9 [place] [address] [place] [id number] [address] [place] [address] Dec, [place] [address] [place] [id number] [address] [place] [address] Dec, Bipolar 1 disorder, mixed F3 1.60 [place] [address] [place] [id number] [address] [place] [address] Dec, Major depressive disorder, r ecurrent episode, moderate F33.1 [place] [address] [place] [id number] [address] [place] [address] Dec, Major depressive disorder, r ecurrent episode, moderate F33.1 [place] [address] [place] [id number] [address] [place] [address] Nov, [facility] [address] [facility] [id number] [address] [place] [address] Nov, Bipolar 1 disorder, mixed F3 1.60 [place] [address] [facility] [id number] [address] [place] [address] Nov, Major depressive disorder, r ecurrent episode, moderate F33.1 [place] [address] [place] [id number] [address] [place] [address] Nov, Cervicalgia M54.2 ; Arthralg ia of hip, unspecified laterality M25.559 ; Allergic rhinitis J30.9 and Hormone replacement therapy Z79.890 [facility] [address] [facility] [id number] [address] [place] [address] Nov, Other seasonal allergic rhin itis J30.2 [place] [address] [facility] [id number] [address] [place] [address] October, Major depressive disorder, r ecurrent episode, moderate F33.1 [place] [address] [place] [id number] [address] [place] [address] October, Major depressive disorder, r ecurrent episode, moderate F33.1 and Arthralgia of hip, unspecified laterality M25.559 [place] [address] [place] [id number] [address] [place] [address] October, Grief F43.20 ; Hypertension I10 ; Hyperlipidemia, unspecified hyperlipidemia type E78.5 ; Other chronic pain G89.29 and Allergic rhinitis, unspecified allergic rhinitis type J30.9 [place] [address] [facility] [id number] [address] [place] [address] October, Major depressive disorder, r ecurrent episode, moderate F33.1 [place] [address] [facility] [id number] [address] [place] [address] Sep, Major depressive disorder, r ecurrent episode, moderate F33.1 [place] [address] [place] [id number] [address] [place] [address] Sep, [facility] [address] [facility] [id number] [address] [place] [address] Sep, Major depressive disorder, r ecurrent episode, moderate F33.1 [facility] [address] [facility] [id number] [address] [place] [address] Sep, Grief F43.20 [facility] [address] [place] [id number] [address] [place] [address] Aug, Major depressive disorder, r ecurrent episode, moderate F33.1 [place] [address] [place] [id number] [address] [place] [address] Aug, Bipolar 1 disorder, mixed F3 1.60 [place] [address] [place] [id number] [address] [place] [address] Aug, Allergic rhinitis J30.9 ; Ce rvicalgia M54.2 and Low back pain M54.5 [place] [address] [place] [id number] [address] [place] [address] Aug, Major depressive disorder, r ecurrent episode, moderate F33.1 [facility] [address] [place] [id number] [address] [place] [address] Aug, Sinusitis J32.9 and Tobacco 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 [facility] [address] [place] [id number] [address] [place] [address] Aug, [facility] [address] [place] [address] Aug, Depressive disorder, not els ewhere classified F32.9 ; Hormone replacement therapy Z79.[address] scan, head R93.0 [place] [address] [place] [id number] [address] [place] [address] Aug, Major depressive disorder, r ecurrent episode, moderate F33.1 [facility] [address] [place] [id number] [address] [place] [address] Jul, Major depressive disorder, r ecurrent episode, moderate F33.1 [facility] [address] [facility] [id number] [address] [place] [address] Jul, Abdominal pain R10.9 and Hyp ertension I10 [facility] [address] [facility] [id number] [address] [place] [address] Jul, [facility] [address] [place] [id number] [place] [address] Jul, Major depressive disorder, r ecurrent episode, moderate F33.1 [facility] [address] [facility] [id number] [address] [place] [address] Jul, [facility] [address] [place] [id number] [address] [place] [address] Jul, [facility] [address] [place] [id number] [address] [place] [address] Jun, [facility] [address] [place] [id number] [address] [place] [address] Jun, Depressive disorder, not els ewhere classified F32.9 [facility] [address] [facility] [id number] [address] [place] [address] Jun, [facility] [address] [place] [address] Jun, [facility] [address] [place] [address] Jun, Arthralgia of hip, unspecifi ed laterality M25.559 ; Bruising, spontaneous R23.3 and Night sweats R61 [facility] [address] [facility] [id number] [address] [place] [address] Jun, [facility] [address] [facility] [id number] [address] [place] [address] Jun, [facility] [address] [place] [id number] [address] [place] [address] May, [facility] [address] [facility] [id number] [address] [place] [address] May, Myalgia M79.1 and Screening, lipid Z13.220 [facility] [address] [id number] [address] [place] [address] Apr, Status post cervical spinal fusion Z98.1 ; Fibromyalgia M79.7 and Unsteady gait R26.81 [facility] [address] [id number] [address] [place] [address] Nov, [facility] [address] [id number] [address] [place] [address] Nov, [facility] [address] [id number] [address] [place] [address] October, [facility] [address] [facility] [id number] [address] [place] [address] October, [facility] [address] [facility] [id number] [address] [place] [address] October, [facility] [address] [facility] [id number] [address] [place] [address] October, [facility] [address] [facility] [id number] [address] [place] [address] October, [facility] [address] [facility] [id number] [address] [place] [address] October, Dysuria 788.1 ; Nausea 787.0 2 and Urinary tract infection 599.0 [facility] [address] [facility] [id number] [address] [place] [address] Sep, [facility] [address] [facility] [id number] [address] [place] [address] Sep, [facility] [address] [facility] [id number] [address] [place] [address] Aug, [facility] [address] [facility] [id number] [address] [place] [address] 25 Aug, 2014 [facility] [address] [id number] [address] [place] [address], [place] [address] 24 Aug, 2014 [facility] [address] [id number] [address] [place] [address], [place] [address] 24 Aug, 2014 [facility] [address] [id number] [address] [place] [address], [place] [address] 23 Aug, 2014 [facility] [address] [id number] [address] [place] [address], [place] [address] 19 Aug, 2014 [facility] [address] [id number] [address] [place] [address], [place] [address] 19 Aug, 2014 [facility] [address] [id number] [address] [place] [address], [place] [address] 19 Aug, 2014 [facility] [address] [id number] [address] [place] [address], [place] [address] 19 Aug, 2014 [facility] [address] [id number] [address] [place] [address], [place] [address] 18 Aug, 2014 [facility] [address] [id number] [address] [place] [address], [place] [address] 18 Aug, 2014 [facility] [address] [id number] [address] [place] [address], [place] [address] 13 Aug, 2014 [facility] [address] [id number] [address] [place] [address], [place] [address] 13 Aug, 2014 [facility] [address] [id number] [address] [place] [address], [place] [address] 11 Aug, 2014 [facility] [address] [id number] [address] [place] [address], [place] [address] 11 Aug, 2014 [facility] [address] [id number] [address] [place] [address], [place] [address] 06 Aug, 2014 [facility] [address] [id number] [address] [place] [address], [place] [address] 06 Aug, 2014 [facility] [address] [id number] [address] [place] [address], [place] [address] 05 Aug, 2014 [facility] [address] [id number] [address] [place] [address], [place] [address] 05 Aug, 2014 [facility] [address] [id number] [address] [place] [address], [place] [address] Aug, 2014 [facility] [address] [id number] [address] [place] [address], [place] [address] Aug, 2014 [facility] [address] [id number] [address] [place] [address], [place] [address] Aug, [facility] [address] [id number] [address] [place] [address], [place] [address] Jul, 2014 [facility] [address] [id number] [address] [place] [address], [place] [address] Jul, 2014 [facility] [address] [id number] [address] [place] [address], [place] [address] Jul, 2014 [facility] [address] [id number] [address] [place] [address], [place] [address] Jul, [facility] [address] [id number] [address] [place] [address], [place] [address] Jul, [facility] [address] [id number] [address] [place] [address], [place] [address] Jul, [facility] [address] [id number] [address] [place] [address], [place] [address] Jul, 2014 [facility] [address] [id number] [address] [place] [address], [place] [address] Jul, 2014 [facility] [address] [id number] [address] [place] [address], [place] [address] Jul, 2014 [facility] [address] [id number] [address] [place] [address], [place] [address] Jul, 2014 [facility] [address] [id number] [address] [place] [address], [place] [address] Jul, 2014 [facility] [address] [id number] [address] [place] [address], [place] [address] Jul, 2014 [facility] [address] [id number] [address] [place] [address], [place] [address] Jul, 2014 [facility] [address] [id number] [address] [place] [address], [place] [address] Jul, [facility] [address] [id number] [address] [place] [address], [place] [address] Jun, [facility] [address] [id number] [address] [place] [address], [place] [address] Jun, [facility] [address] [id number] [address] [place] [address], [place] [address] Jun, [facility] [address] [id number] [address] [place] [address], [place] [address] Jun, [facility] [address] [id number] [address] [place] [address], [place] [address] Jun, [facility] [address] [id number] [address] [place] [address], [place] [address] Jun, [facility] [address] [id number] [address] [place] [address], [place] [address] May, [facility] [address] [id number] [address] [place] [address], [place] [address] May, [facility] [address] [id number] [address] [place] [address], [place] [address] May, [facility] [address] [id number] [address] [place] [address], [place] [address] May, [facility] [address] [id number] [address] [place] [address], [place] [address] May, [facility] [address] [id number] [address] [place] [address], [place] [address] May, [facility] [address] [id number] [address] [place] [address], [place] [address] Apr, [facility] [address] [id number] [address] [place] [address], [place] [address] Apr, [facility] [address] [id number] [address] [place] [address], [place] [address] Apr, [facility] [address] [id number] [address] [place] [address], [place] [address] Apr, [facility] [address] [id number] [address] [place] [address], [place] [address] Apr, [facility] [address] [id number] [address] [place] [address], [place] [address] Apr, [facility] [address] [id number] [address] [place] [address], [place] [address] Mar, [facility] [address] [id number] [address] [place] [address], [place] [address] Mar, [facility] [address] [id number] [address] [place] [address], [place] [address] Mar, [facility] [address] [id number] [address] [place] [address] Mar, [facility] [address] [id number] [address] [place] [address] Mar, [facility] [address] [id number] [address] [place] [address] Mar, [facility] [address] [id number] [address] [place] [address] Mar, [facility] [address] [id number] [address] [place] [address] Mar, [facility] [address] [id number] [address] [place] [address] Mar, [facility] [address] [id number] [address] [place] [address] Mar, [facility] [address] [id number] [address] [place] [address], [place] [address] Mar, [facility] [address] [id number] [address] [place] [address], [place] [address] Mar, [facility] [address] [id number] [address] [place] [address], [place] [address] 30 Feb, 2014 [facility] [address] [id number] [address] [place] [address], [place] [address] Feb, [facility] [address] [id number] [address] [place] [address], [place] [address] Feb, [facility] [address] [id number] [address] [place] [address], [place] [address] Feb, [facility] [address] [id number] [address] [place] [address], [place] [address] Feb, [facility] [address] [id number] [address] [place] [address], [place] [address] Feb, [facility] [address] [id number] [address] [place] [address], [place] [address] Feb, [facility] [address] [id number] [address] [place] [address], [place] [address] Jan, [facility] [address] [id number] [address] [place] [address], [place] [address] Jan, [facility] [address] [id number] [address] [place] [address], [place] [address] Jan, [facility] [address] [id number] [address] [place] [address], [place] [address] Dec, [facility] [address] [id number] [address] [place] [address], [place] [address] Dec, [facility] [address] [id number] [address] [place] [address], [place] [address] Dec, [facility] [address] [id number] [address] [place] [address], [place] [address] Dec, [facility] [address] [id number] [address] [place] [address], [place] [address] Sep, [facility] [address] [id number] [address] [place] [address], [place] [address] Sep, [facility] [address] [id number] [address] [place] [address], [place] [address] Sep, [facility] [address] [id number] [address] [place] [address], [place] [address] Sep, [facility] [address] [id number] [address] [place] [address], [place] [address] Sep, [facility] [address] [id number] [address] [place] [address], [place] [address] Sep, [facility] [address] [id number] [address] [place] [address], [place] [address] Sep, [facility] [address] [id number] [address] [place] [address], [place] [address] Sep, [facility] [address] [id number] [address] [place] [address], [place] [address] Aug, [facility] [address] [id number] [address] [place] [address], [place] [address] Aug, [facility] [address] [id number] [address] [place] [address], [place] [address] May, [facility] [address] [id number] [address] [place] [address], [place] [address] May, [facility] [address] [id number] [address] [place] [address], [place] [address] Apr, [facility] [address] [id number] [address] [place] [address], [place] [address] Apr, [facility] [address] [id number] [address] [place] [address], [place] [address] Apr, [facility] [address] [id number] [address] [place] [address], [place] [address] Apr, [facility] [address] [id number] [address] [place] [address], [place] [address] Apr, [facility] [address] [id number] [address] [place] [address], [place] [address] Apr, [facility] [address] [id number] [address] [place] [address], [place] [address] May, [facility] [address] [id number] [address] [place] [address], [place] [address] 18 May, 2012 [facility] [address] [id number] [address] [place] [address], [place] [address] 15 May, 2012 [facility] [address] [id number] [address] [place] [address], [place] [address] May, [facility] [address] [id number] [address] [place] [address], [place] [address] May, [facility] [address] [id number] [address] [place] [address], [place] [address] May, [facility] [address] [id number] [address] [place] [address], [place] [address] Apr, [facility] [address] [id number] [address] [place] [address], [place] [address] Apr, [facility] [address] [id number] [address] [place] [address], [place] [address] Apr, [facility] [address] [id number] [address] [place] [address], [place] [address] Apr, [facility] [address] [id number] [address] [place] [address], [place] [address] Apr, [facility] [address] [id number] [address] [place] [address], [place] [address] Apr, [facility] [address] [id number] [address] [place] [address], [place] [address] 07 Apr, 2012 [facility] [address] [id number] [address] [place] [address], [place] [address] Apr, [facility] [address] [id number] [address] [place] [address], [place] [address] Apr, [facility] [address] [id number] [address] [place] [address], [place] [address] Apr, [facility] [address] [id number] [address] [place] [address], [place] [address] Mar, [facility] [address] [id number] [address] [place] [address], [place] [address] Mar, [facility] [address] [id number] [address] [place] [address], [place] [address] Mar, [facility] [address] [id number] [address] [place] [address], [place] [address] Mar, [facility] [address] [id number] [address] [place] [address], [place] [address] Mar, [facility] [address] [id number] [address] [place] [address], [place] [address] Mar, [facility] [address] [id number] [address] [place] [address], [place] [address] Mar, [facility] [address] [id number] [address] [place] [address], [place] [address] Mar, [facility] [address] [id number] [address] [place] [address], [place] [address] Mar, [facility] [address] [id number] [address] [place] [address], [place] [address] 25 Feb, 2012 [facility] [address] [id number] [address] [place] [address] [address] 16 Sep2011 [facility] [address] [id number] [address] [place] [address], [place] [address] 11 Feb, 2012 [facility] [address] [id number] [facility] [place] [address] Jan, [facility] [address] [id number] [address] [place] [address], [place] [address] Jan, [facility] [address] [id number] [address] [place] [address], [place] [address] Jan, [facility] [address] [id number] [address] [place] [address], [place] [address] Jan, [facility] [address] [id number] [address] [place] [address], [place] [address] Jan, [facility] [address] [id number] [address] [place] [address], [place] [address] Jan, [facility] [address] [id number] [address] [place] [address], [place] [address] Jan, [facility] [address] [id number] [address] [place] [address], [place] [address] Jan, [facility] [address] [id number] [address] [place] [address], [place] [address] Jan, [facility] [address] [id number] [address] [place] [address], [place] [address] Jan, [facility] [address] [id number] [address] [place] [address], [place] [address] Dec, [facility] [address] [id number] [address] [place] [address], [place] [address] Dec, [facility] [address] [id number] [address] [place] [address], [place] [address] Dec, [facility] [address] [id number] [address] [place] [address], [place] [address] Dec, [facility] [address] [id number] [address] [place] [address], [place] [address] Nov, [facility] [address] [id number] [address] [place] [address], [place] [address] 08 Nov, 2011 [facility] [address] [id number] [address] [place] [address] Nov, [facility] [address] [id number] [address] [place] [address] October, [facility] [address] [id number] [address] [place] [address] October, [facility] [address] [id number] [address] [place] [address] October, [facility] [address] [id number] [address] [place] [address] October, [facility] [address] [id number] [address] [place] [address] October, [facility] [address] [id number] [address] [place] [address] October, [facility] [address] [id number] [address] [place] [address] Aug, [facility] [address] [id number] [address] [place] [address] Mar, [facility] [address] [id number] [address] [place] [address] Nov, [facility] [address] [id number] [address] [place] [address] May, [facility] [address] [id number] [address] [place] [address] May, [facility] [address] [id number] [address] [place] [address] Apr, [facility] [address] [id number] [address] [place] [address] Mar, [facility] [address] [id number] [address] [place] [address] Mar, IMMUNIZATIONS No Known Immunizations SOCIAL HISTORY [...]
--- OUTSIDE RECORDS SUMMARY | 2019-06-19 05:14 | XMS REPORT ---
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 Name Role Phone NAHOMY HANCOCK Unavailable PROBLEMS Type Condition ICD9-CM Code FNM84-JC Code Onset Dates Condition S tatus SNOMED Code Problem Age-related osteoporosis without current pathological fracture M81.0 Active 09833568 Problem Sensorineural hearing loss (SNHL) of both ears H90 .3 Active 709338328 Problem Ab[address] CT scan, head R93.0 Active 134085026 Problem Arthralgia of hip, unspecified laterality M25.559 Active 70052982 Problem Bruising, spontaneous R23.3 Active 984176108 Problem Hypertension I10 Active 1018734 3 Problem Night sweats R61 Active 2865774 0 Problem Imbalance R26.89 Active 648445078 Problem Hammer toe of right foot M20.41 Activ e 624201728 Problem Hormone replacement therapy Z79.890 Ac tive 177698888 Problem Bipolar 1 disorder, mixed F31.60 Acti ve 53576841 Problem Gastritis without bleeding, unspecified chronicity, unspecified gastritis type K29.70 Active 503446584 Problem Ataxia R27.0 Active 74777401 Problem Hearing loss, unspecified laterality H91.90 Active 92632018 Problem History of colon polyps Z86.010 Active 480129528 Problem Allergic rhinitis J30.9 Active 61 577013 Problem Hematuria, unspecified type R31.9 Ac tive 61386865 Problem Generalized anxiety disorder F41.1 A ctive 38018915 Problem Major depressive disorder, recurrent episode, moderate F33.1 Active 945023857 Problem Fibromyalgia M79.7 Active 3754309 7 Problem Bladder spasm N32.89 Active 416344 006 Problem Tobacco use disorder F17.200 Active 872165799 Problem Other chronic pain G89.29 Active 8 8746512 Problem Post menopausal syndrome N95.1 Activ e 168846768 Problem Grief F43.20 Active 17925990 Problem Hyperlipidemia, unspecified hyperlipidemia type E7 8.5 Active 92567858 Problem Acute left-sided low back pain with left-sided sciatica M54.42 Active 567039519 Problem Sciatica of left side M54.32 Active 67779642 Problem Plantar wart of right foot B07.0 Act mitchell [id number] Problem Slow transit constipation K59.01 Acti ve 81815221 ALLERGIES No Information ENCOUNTERS Encounter Location Date Diagnosis [place] [address] [place] [id number] [place] [address] Jan, [facility] [place] [address] [address] Dec, [place] [address] [address] Dec, [place] [address] [address] Dec, Bipolar 1 disorder, mixed F3 1.60 [place] [address] [place] [id number] [place] [address] Nov, Bipolar 1 disorder, mixed F3 1.60 [place] [address] [address] Nov, Bipolar 1 disorder, mixed F3 1.60 ; Generalized anxiety disorder F41.1 ; Tobacco use disorder F17.200 and Other snf (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 Z79.899 [place] [address] [place] [id number] [place] [address] Nov, [facility] [place] [address] [place] [id number] [place] [address] Nov, Bipolar 1 disorder, mixed F3 1.60 [place] [address] [place] [id number] [place] [address] October, Bipolar 1 disorder, mixed F3 1.60 [place] [address] [address] October, Bipolar 1 disorder, mixed F3 1.60 [place] [address] [place] [address] October, [place] [address] [place] [address] October, Bipolar 1 disorder, mixed F3 1.60 ; Generalized anxiety disorder F41.1 and Tobacco use disorder F17.200 [place] [address] [place] [address] Sep, [place] [address] [place] [id number] [place] [address] Sep, Encounter for [facility] Z00.00 ; Major depressive disorder, recurrent episode, moderate F33.1 ; Allergic rhinitis J30.9 ; Bipolar 1 disorder, mixed F31.60 ; Fibromyalgia M79.7 ; Hyperlipidemia, unspecified hyperlipidemia type E78.5 ; Hormone replacement therapy Z79.890 ; Encounter for screening for lung cancer Z12.2 and Tobacco use disorder F17.200 [place] [address] [place] [address] Sep, Bipolar 1 disorder, mixed F3 1.60 [place] [address] [place] [id number] [place] [address] Sep, Other chronic pain G89.29 ; Hyperlipidemia, unspecified hyperlipidemia type E78.5 ; Breast cancer screening Z12.31 and Post menopausal syndrome N95.1 [place] [address] [place] [id number] [place] [address] Sep, Bipolar 1 disorder, mixed F3 1.60 [place] [address] [place] [id number] [place] [address] Sep, Bipolar 1 disorder, mixed F3 1.60 ; Generalized anxiety disorder F41.1 and Tobacco use disorder F17.200 [place] [address] [place] [id number] [place] [address] Sep, Gastritis without bleeding, unspecified chronicity, unspecified gastritis type K29.70 [place] [address] [facility] [id number] [address] [place] [address] 08 Sep, 2018 Exercise counseling Z71.82 [place] [address] [facility] [id number] [address] [place] [address] Aug, Exercise counseling Z71.82 [place] [address] [facility] [id number] [address] [place] [address] Aug, Bipolar 1 disorder, mixed F3 1.60 [place] [address] [facility] [id number] [address] [place] [address] Aug, Exercise counseling Z71.82 [place] [address] [place] [id number] [place] [address] Aug, Bipolar 1 disorder, mixed F3 1.60 [place] [address] [place] [id number] [place] [address] Aug, Gastritis without bleeding, unspecified chronicity, unspecified gastritis type K29.70 ; Tobacco abuse Z72.0 ; Generalized anxiety disorder F41.1 and Weight gain R63.5 [place] [address] [place] [id number] [place] [address] Aug, Bipolar 1 disorder, mixed F3 1.60 ; Generalized anxiety disorder F41.1 and Tobacco use disorder F17.200 [place] [address] [place] [id number] [place] [address] Jul, Bipolar 1 disorder, mixed F3 1.60 [place] [address] [facility] [id number] [address] [place] [address] Jul, [place] [address] [place] [id number] [place] [address] Jul, Bipolar 1 disorder, mixed F3 1.60 [place] [address] [place] [id number] [address] [place] [address] 11 Jul, 2018 Allergic rhinitis J30.9 ; Ma darion depressive disorder, recurrent episode, moderate F33.1 and Tobacco 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 [facility] [place] [address] [facility] [id number] [address] [place] [address] Jun, [facility] [place] [address] [facility] [id number] [address] [place] [address] Jun, [facility] [place] [address] [facility] [id number] [address] [place] [address] Jun, Bipolar 1 disorder, mixed F3 1.60 [facility] [place] [address] [facility] [id number] [address] [place] [address] Jun, Bipolar 1 disorder, mixed F3 1.60 [facility] [place] [address] [facility] [id number] [address] [place] [address] Jun, Bipolar 1 disorder, mixed F3 1.60 [facility] [place] [address] [facility] [id number] [address] [place] [address] Jun, Generalized anxiety disorder F41.1 ; Tobacco abuse Z72.0 and Major depressive disorder, recurrent episode, moderate F33.1 [facility] [place] [address] [facility] [id number] [address] [place] [address] May, Bipolar 1 disorder, mixed F3 1.60 [facility] [place] [address] [facility] [id number] [address] [place] [address] May, Bipolar 1 disorder, mixed F3 1.60 and Generalized anxiety disorder F41.1 [facility] [place] [address] [facility] [id number] [address] [place] [address] May, Bipolar 1 disorder, mixed F3 1.60 [facility] [place] [address] [facility] [id number] [address] [place] [address] May, Allergic rhinitis J30.9 [facility] [place] [address] [facility] [id number] [address] [place] [address] May, Bipolar 1 disorder, mixed F3 1.60 [facility] [place] [address] [facility] [id number] [address] [place] [address] May, [facility] [place] [address] [place] [id number] [place] [address] Apr, Allergic rhinitis J30.9 ; Dy sfunction of both eustachian tubes H69.83 ; History of bladder surgery Z98.890 and Cervicalgia M54.2 [facility] [place] [address] [place] [id number] [place] [address] Mar, Bipolar 1 disorder, mixed F3 1.60 [place] [address] [place] [id number] [place] [address] Mar, [place] [address] [address] Mar, Slow transit constipation K5 9.01 ; Encounter for immunization Z23 and Generalized anxiety disorder F41.1 [place] [address] [place] [id number] [place] [address] 27 Feb, 2018 Bipolar 1 disorder, mixed F3 1.60 [place] [address] [place] [id number] [address] [place] [address] 26 Feb, 2018 Allergic rhinitis J30.9 [place] [address] [place] [id number] [place] [address] 24 Feb, 2018 Bipolar 1 disorder, mixed F3 1.60 [place] [address] [place] [id number] [place] [address] 20 Feb, 2018 Bipolar 1 disorder, mixed F3 1.60 and Generalized anxiety disorder F41.1 [place] [address] [place] [id number] [place] [address] 13 Feb, 2018 Bipolar 1 disorder, mixed F3 1.60 [place] [address] [place] [id number] [place] [address] 11 Feb, 2018 Allergic rhinitis J30.9 [facility] [place] [address] [place] [id number] [place] [address] 05 Feb, 2018 [place] [address] [place] [id number] [place] [address] Jan, Bipolar 1 disorder, mixed F3 1.60 [facility] [place] [address] [facility] [id number] [address] [place] [address] Jan, Low back pain M54.5 ; Hyperl ipidemia, unspecified hyperlipidemia type E78.5 and Bipolar 1 disorder, mixed F31.60 [facility] [place] [address] [facility] [id number] [address] [place] [address] Jan, Bipolar 1 disorder, mixed F3 1.60 [facility] [place] [address] [facility] [id number] [address] [place] [address] Jan, Bipolar 1 disorder, mixed F3 1.60 [place] [address] [place] [id number] [address] [place] [address] Jan, Bipolar 1 disorder, mixed F3 1.60 [place] [address] [place] [id number] [address] [place] [address] Jan, Bipolar 1 disorder, mixed F3 1.60 [facility] [place] [address] [place] [id number] [place] [address] Dec, Bipolar 1 disorder, mixed F3 1.60 ; Generalized anxiety disorder F41.1 and 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 [id number] [address] [place] [address] Dec, Bipolar 1 disorder, mixed F3 1.60 [place] [address] [facility] [id number] [address] [place] [address] Dec, Bipolar 1 disorder, mixed F3 1.60 [facility] [place] [address] [place] [id number] [place] [address] Nov, Bipolar 1 disorder, mixed F3 1.60 [place] [address] [facility] [id number] [address] [place] [address] Nov, Bipolar 1 disorder, mixed F3 1.60 [facility] [place] [address] [place] [id number] [place] [address] Nov, Bipolar 1 disorder, mixed F3 1.60 [facility] [place] [address] [facility] [id number] [address] [place] [address] 11 Nov, 2017 Allergic rhinitis J30.9 [facility] [place] [address] [place] [id number] [place] [address] Nov, Allergic rhinitis J30.9 [facility] [place] [address] [place] [id number] [place] [address] Nov, [facility] [place] [address] [address] Nov, Bipolar 1 disorder, mixed F3 1.60 [place] [address] [address] Nov, Fibromyalgia M79.7 and Aller gic rhinitis J30.9 [facility] [place] [address] [place] [address] October, Bipolar 1 disorder, mixed F3 1.60 [facility] [address] [place] [id number] [place] [address] October, Acute nasopharyngitis J00 [facility] [address] [address] October, Bitten or stung by nonvenomo us insect and other nonvenomous arthropods, initial encounter W57.XXXA and Insect bite (nonvenomous) of abdominal wall, initial encounter S30.861A [place] [address] [place] [id number] [place] [address] October, Insect bite (nonvenomous) of abdominal wall, initial encounter S30.861A ; Bitten or stung by nonvenomous insect and other nonvenomous arthropods, initial encounter W57.XXXA ; Allergic rhinitis J30.9 and Low back pain M54.5 [facility] [place] [address] [id number] [address] [place] [address] October, Bipolar 1 disorder, mixed F3 1.60 [facility] [place] [address] [id number] [address] [place] [address] October, [facility] [place] [address] [id number] [address] [place] [address] October, [facility] [place] [address] [id number] [address] [place] [address] October, Bipolar 1 disorder, mixed F3 1.60 [facility] [place] [address] [id number] [address] [place] [address] Sep, Bipolar 1 disorder, mixed F3 1.60 [facility] [place] [address] [id number] [address] [place] [address] Sep, Other chronic pain G89.29 [facility] [place] [address] [id number] [address] [place] [address] Sep, [facility] [place] [address] [id number] [address] [place] [address] Sep, Bipolar 1 disorder, mixed F3 1.60 [facility] [place] [address] [facility] [id number] [address] [place] [address] Sep, Allergic rhinitis J30.9 and Sciatica of left side M54.32 [facility] [place] [address] [id number] [address] [place] [address] Sep, Bipolar 1 disorder, mixed F3 1.60 [facility] [place] [address] [id number] [address] [place] [address] Sep, Bipolar 1 disorder, mixed F3 1.60 and Generalized anxiety disorder F41.1 [facility] [place] [address] [id number] [address] [place] [address] Aug, [facility] [place] [address] [facility] [id number] [address] [place] [address] Aug, Bipolar 1 disorder, mixed F3 1.60 [facility] [place] [address] [id number] [address] [place] [address] Aug, Bipolar 1 disorder, mixed F3 1.60 [facility] [place] [address] [facility] [id number] [address] [place] [address] Aug, [facility] [place] [address] [facility] [id number] [address] [place] [address] Aug, Generalized anxiety disorder F41.1 [facility] [place] [address] [id number] [address] [place] [address] Aug, Bipolar 1 disorder, mixed F3 1.60 [facility] [place] [address] [facility] [id number] [address] [place] [address] Aug, Plantar wart of right foot B 07.0 [facility] [place] [address] [facility] [id number] [address] [place] [address] Aug, Bipolar 1 disorder, mixed F3 1.60 [facility] [place] [address] [facility] [id number] [address] [place] [address] Jul, Bipolar 1 disorder, mixed F3 1.60 [facility] [place] [address] [facility] [id number] [address] [place] [address] Jul, [facility] [place] [address] [facility] [id number] [address] [place] [address] 14 Jul, 2017 Bipolar 1 disorder, mixed F3 1.60 [facility] [place] [address] [facility] [id number] [address] [place] [address] Jul, Generalized anxiety disorder F41.1 [facility] [place] [address] [facility] [id number] [address] [place] [address] Jul, Bipolar 1 disorder, mixed F3 1.60 [facility] [place] [address] [facility] [id number] [address] [place] [address] Jul, Acute left-sided low back pa in with left-sided sciatica M54.42 [place] [address] [place] [address] 05 Jul, 2017 Coccydynia M53.3 [place] [address] [place] [id number] [place] [address] Jun, Bipolar 1 disorder, mixed F3 1.60 [facility] [place] [id number] [place] [address] Jun, Acute nasopharyngitis J00 [place] [address] [place] [id number] [place] [address] Jun, Bipolar 1 disorder, mixed F3 1.60 [place] [address] [address] Jun, Fibromyalgia M79.7 [place] [address] [address] Jun, Bipolar 1 disorder, mixed F3 1.60 [place] [address] [address] Jun, Fibromyalgia M79.7 and Bipol ar 1 disorder, mixed F31.60 [place] [address] [address] May, Bipolar 1 disorder, mixed F3 1.60 ; Generalized anxiety disorder F41.1 and Other snf (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 Z79.899 [place] [address] [place] [address] May, Bipolar 1 disorder, mixed F3 1.60 [facility] [address] [place] [address] 14 May, 2017 Cough R05 and Body aches R52 [facility] [place] [address] [place] [id number] [place] [id number] 10 May, 2017 Bladder spasm N32.89 and Acu te cystitis without hematuria N30.00 [place] [address] [address] 07 May, 2017 Bipolar 1 disorder, mixed F3 1.60 [facility] [place] [address] [place] [id number] 30 Apr, 2017 [facility] [place] [address] [address] Apr, Major depressive disorder, r ecurrent episode, moderate F33.1 and Encounter for immunization Z23 [facility] [place] [address] [address] 29 Apr, 2017 Bipolar 1 disorder, mixed F3 1.60 [place] [address] [address] [place] [id number] Apr, Bipolar 1 disorder, mixed F3 1.60 [place] [address] [address] 16 Apr, 2017 Bipolar 1 disorder, mixed F3 1.60 [facility] [place] [address] [address] 13 Apr, 2017 Yeast vaginitis B37.3 [place] [address] [address] 09 Apr, 2017 Bipolar 1 disorder, mixed F3 1.60 [facility] [address] [address] 07 Apr, 2017 [address] L03[address] for immunization Z23 [facility] [place] [address] [address] 02 Apr, 2017 Bipolar 1 disorder, mixed F3 1.60 [facility] [place] [address] [address] Mar, Bipolar 1 disorder, mixed F3 1.60 [place] [address] [address] Mar, Bipolar 1 disorder, mixed F3 1.60 [facility] [place] [address] [place] [address] Mar, Imbalance R26.89 and Encount er for immunization Z23 [place] [address] [address] [place] [address] Mar, Generalized anxiety disorder F41.1 [place] [address] [address] Mar, Bipolar 1 disorder, mixed F3 1.60 [place] [address] [address] Mar, Generalized anxiety disorder F41.1 [place] [address] [address] [place] [id number] Mar, Bipolar 1 disorder, mixed F3 1.60 [place] [address] [address] Mar, Bipolar 1 disorder, mixed F3 1.60 [place] [address] [address] Feb, Bipolar 1 disorder, mixed F3 1.60 [place] [address] [address] Feb, Bipolar 1 disorder, mixed F3 1.60 and Generalized anxiety disorder F41.1 [place] [address] [address] Feb, Gastritis without bleeding, unspecified chronicity, unspecified gastritis type K29.70 ; Hammer toe of right foot M20.41 and Other viral warts B07.8 [place] [address] [address] 20 Feb, 2017 Bipolar 1 disorder, mixed F3 1.60 [place] [address] [address] 13 Feb, 2017 Bipolar 1 disorder, mixed F3 1.60 [place] [address] [address] 05 Feb, 2017 Bipolar 1 disorder, mixed F3 1.60 [facility] [place] [address] [facility] [id number] [address] [place] [address] 31 Jan, 2017 Encounter for screening mamm ogram for breast cancer Z12.31 ; Other viral warts B07.8 and Allergic rhinitis J30.9 [facility] [place] [address] [facility] [id number] [address] [place] [address] Jan, Bipolar 1 disorder, mixed F3 1.60 [facility] [place] [address] [facility] [id number] [address] [place] [address] Jan, Bipolar 1 disorder, mixed F3 1.60 [place] [address] [facility] [id number] [address] [place] [address] Jan, [place] [address] [facility] [id number] [address] [place] [address] Jan, Bipolar 1 disorder, mixed F3 1.60 [place] [address] [facility] [id number] [address] [place] [address] Jan, Bipolar 1 disorder, mixed F3 1.60 [place] [id number] [facility] [id number] [address] [place] [address] Jan, Allergic rhinitis J30.9 ; He maturia R31.9 and Colon cancer screening Z12.11 [facility] [place] [address] [facility] [id number] [address] [place] [address] Dec, Bipolar 1 disorder, mixed F3 1.60 [facility] [place] [address] [facility] [id number] [address] [place] [address] 18 Dec, 2016 Bipolar 1 disorder, mixed F3 1.60 ; Generalized anxiety disorder F41.1 and Other snf (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 Z79.899 [facility] [place] [address] [facility] [id number] [address] [place] [address] Dec, Bipolar 1 disorder, mixed F3 1.60 [facility] [place] [address] [place] [id number] [address] [place] [address] Dec, Bipolar 1 disorder, mixed F3 1.60 [facility] [place] [address] [facility] [id number] [address] [place] [address] Dec, Bipolar 1 disorder, mixed F3 1.60 [facility] [place] [address] [facility] [id number] [address] [place] [address] Dec, Low back pain M54.5 and Recu rrent urinary tract infection N39.0 [facility] [place] [address] [facility] [id number] [address] [place] [address] Nov, Bipolar 1 disorder, mixed F3 1.60 [facility] [place] [address] [facility] [id number] [address] [place] [address] Nov, Bipolar 1 disorder, mixed F3 1.60 [facility] [place] [address] [facility] [id number] [address] [place] [address] Nov, Bipolar 1 disorder, mixed F3 1.60 [facility] [place] [address] [facility] [id number] [address] [place] [address] Nov, Bipolar 1 disorder, mixed F3 1.60 [facility] [place] [address] [facility] [id number] [address] [place] [phone] Nov, [facility] [place] [address] [facility] [id number] [address] [place] [address] Nov, Anesthesia of skin R20.0 ; F requent UTI N39.0 ; Tobacco abuse Z72.0 and Colon cancer screening Z12.11 [facility] [place] [address] [facility] [id number] [address] [place] [address] Nov, Bipolar 1 disorder, mixed F3 1.60 [facility] [place] [address] [facility] [id number] [address] [place] [address] October, Bipolar 1 disorder, mixed F3 1.60 [facility] [place] [address] [facility] [id number] [address] [place] [address] October, Bipolar 1 disorder, mixed F3 1.60 [facility] [place] [address] [facility] [id number] [address] [place] [address] October, Bipolar 1 disorder, mixed F3 1.60 [place] [address] [address] October, Bipolar 1 disorder, mixed F3 1.60 [place] [address] [address] October, Bipolar 1 disorder, mixed F3 1.60 [place] [address] [address] October, Cervicalgia M54.2 and Bipola r 1 disorder, mixed F31.60 [place] [address] [address] October, Hypertension I10 ; Hyperlipi demia, unspecified hyperlipidemia type E78.5 and Family history of thyroid disease Z83.49 [place] [address] [address] October, [place] [address] [address] October, Hypertension I10 ; Hyperlipi demia, unspecified hyperlipidemia type E78.5 and Family history of thyroid problem Z83.49 [place] [address] [address] October, Bipolar 1 disorder, mixed F3 1.60 [place] [address] [address] Sep, Bipolar 1 disorder, mixed F3 1.60 [place] [address] [place] [id number] [place] [address] Sep, Bipolar 1 disorder, mixed F3 1.60 [place] [address] [address] Sep, Bipolar 1 disorder, mixed F3 1.60 [place] [address] [address] Sep, History of colon polyps Z86. 010 and Hematochezia K92.1 [facility] [place] [id number] [place] [address] Sep, Major depressive disorder, r ecurrent episode, moderate F33.1 [facility] [place] [address] [place] [id number] [address] [place] [address] Sep, Bipolar 1 disorder, mixed F3 1.60 [facility] [place] [address] [place] [id number] [address] [place] [address] Aug, Hot flashes due to menopause N95.1 [facility] [place] [address] [place] [id number] [place] [address] Aug, Bipolar 1 disorder, mixed F3 1.60 [facility] [place] [address] [address] Aug, [facility] [place] [address] [address] Aug, Bipolar 1 disorder, mixed F3 1.60 [facility] [place] [address] [address] Aug, Bipolar 1 disorder, mixed F3 1.60 [facility] [place] [address] [place] [id number] [place] [address] Aug, Hot flashes due to menopause N95.1 ; Cervicalgia M54.2 and Ataxia R27.0 [facility] [place] [address] [place] [id number] [address] [place] [address] Jul, Bipolar 1 disorder, mixed F3 1.60 [facility] [place] [address] [place] [id number] [address] [place] [address] Jul, Bipolar 1 disorder, mixed F3 1.60 [facility] [place] [address] [place] [id number] [address] [place] [address] Jul, Bipolar 1 disorder, mixed F3 1.60 [facility] [place] [address] [address] 13 Jul, 2016 Bipolar 1 disorder, mixed F3 1.60 [place] [address] [place] [id number] 10 Jul, 2016 Bipolar 1 disorder, mixed F3 1.60 [place] [address] 08 Jul, 2016 Cervicalgia M54.2 ; Tremor R 25.1 ; Hearing abnormally acute, unspecified laterality H93.239 ; Alopecia L65.9 ; Encounter for immunization Z23 and Family history of thyroid disease Z83.49 [place] [address] 06 Jul, 2016 Bipolar 1 disorder, mixed F3 1.60 [place] [address] [place] [id number] Jun, [place] [address] [place] [address] Jun, Hearing disorder, unspecifie d laterality H93.299 [place] [address] [place] [id number] Jun, Bipolar 1 disorder, mixed F3 1.60 [place] [address] [address] Jun, Bipolar 1 disorder, mixed F3 1.60 [place] [address] [address] Jun, Allergic rhinitis J30.9 [place] [address] [address] Jun, Bipolar 1 disorder, mixed F3 1.60 [place] [address] [place] [id number] Jun, Bipolar 1 disorder, mixed F3 1.60 [place] [address] [address] Jun, Allergic rhinitis J30.9 [facility] [place] [address] [facility] [id number] [address] [place] [address] Jun, Allergic rhinitis J30.9 [facility] [place] [address] [facility] [id number] [address] [place] [address] Jun, Bipolar 1 disorder, mixed F3 1.60 [facility] [place] [address] [facility] [id number] [address] [place] [address] May, Bipolar 1 disorder, mixed F3 1.60 [facility] [place] [address] [id number] [address] [place] [address] May, Bipolar 1 disorder, mixed F3 1.60 [facility] [place] [address] [facility] [id number] [address] [place] [address] May, [facility] [place] [address] [facility] [id number] [address] [place] [address] May, Bipolar 1 disorder, mixed F3 1.60 [facility] [place] [address] [facility] [id number] [address] [place] [address] May, Bipolar 1 disorder, mixed F3 1.60 [facility] [place] [address] [facility] [id number] [address] [place] [address] May, [facility] [place] [address] [facility] [id number] [address] [place] [address] May, [facility] [place] [address] [facility] [id number] [address] [place] [address] May, [facility] [place] [address] [facility] [id number] [address] [place] [address] May, Abdominal pain, unspecified location R10.9 [facility] [place] [address] [facility] [id number] [address] [place] [address] May, [facility] [place] [address] [facility] [id number] [address] [place] [address] Apr, Hematuria R31.9 ; Ataxia R27 .0 and Hearing loss, unspecified laterality H91.90 [facility] [place] [address] [place] [id number] [address] [place] [address] Apr, Bipolar 1 disorder, mixed F3 1.60 [facility] [address] [address] 11 Apr, 2016 Acute effusion of both middl e ears H65.193 [facility] [place] [address] [address] 10 Apr, 2016 Hematuria R31.9 and Pyelonep hritis N12 [facility] [place] [address] [address] Apr, [place] [address] [address] Mar, Bipolar 1 disorder, mixed F3 1.60 [facility] [place] [address] [address] Mar, [facility] [place] [address] [address] Mar, Bipolar 1 disorder, mixed F3 1.60 [place] [address] [address] Mar, Bipolar 1 disorder, mixed F3 1.60 [facility] [place] [address] [address] Mar, Encounter for immunization Z 23 and Gastritis without bleeding, unspecified chronicity, unspecified gastritis type K29.70 [facility] [place] [address] [address] Mar, Bipolar 1 disorder, mixed F3 1.60 and Grief F43.20 [place] [address] [address] Mar, Gastritis without bleeding, unspecified chronicity, unspecified gastritis type K29.70 [place] [address] [address] Mar, Bipolar 1 disorder, mixed F3 1.60 [place] [address] [facility] [id number] [address] [place], [place] [id number] Mar, Gastritis without bleeding, unspecified chronicity, unspecified gastritis type K29.70 [facility] [place] [address] [facility] [id number] [address] [place] [address] Mar, [place] [address] [place] [id number] [address] [place], [place] [id number] Feb, Bipolar 1 disorder, mixed F3 1.60 [place] [address] [place] [id number] [address] [place], [place] [id number] Feb, Bipolar 1 disorder, mixed F3 1.60 and Grief F43.20 [place] [address] [place] [id number] [address] [place] [address] Feb, Gastritis without bleeding, unspecified chronicity, unspecified gastritis type K29.70 [place] [address] [place] [id number] [address] [place] [address] 14 Feb, 2016 Bipolar 1 disorder, mixed F3 1.60 [facility] [address] [place] [id number] [address] [place] [address] Feb, Gastroesophageal reflux dise ase, esophagitis presence not specified K21.9 [facility] [place] [address] [place] [id number] [address] [place] [address] Jan, Bipolar 1 disorder, mixed F3 1.60 [place] [address] [place] [id number] [address] [place] [address] Jan, Bipolar 1 disorder, mixed F3 1.60 and Unsteady gait R26.81 [place] [address] [place] [id number] [address] [place] [address] Jan, Bipolar 1 disorder, mixed F3 1.60 [facility] [place] [address] [place] [id number] [address] [place] [address] Jan, Bipolar 1 disorder, mixed F3 1.60 and Other snf (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 Z79.899 [facility] [place] [address] [facility] [id number] [address] [place] [address] Jan, Bipolar 1 disorder, mixed F3 1.60 [facility] [place] [address] [facility] [id number] [address] [place] [address] Jan, Bipolar 1 disorder, mixed F3 1.60 [place] [address] [place] [id number] [address] [place] [address] Jan, Bipolar 1 disorder, mixed F3 1.60 ; Grief F43.20 and Other snf (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 Z79.899 [place] [address] [place] [id number] [address] [place] [address] Jan, Bipolar 1 disorder, mixed F3 1.60 [place] [address] [place] [id number] [address] [place] [address] Dec, [place] [address] [place] [id number] [address] [place] [address] Dec, Bipolar 1 disorder, mixed F3 1.60 ; Vitamin D deficiency, unspecified E55.9 ; H/O allergic rhinitis Z87.09 ; Other chronic pain G89.29 and Dorsalgia, unspecified M54.9 [place] [address] [place] [id number] [address] [place] [address] Dec, [place] [address] [place] [id number] [address] [place] [address] Dec, Bipolar 1 disorder, mixed F3 1.60 [place] [address] [place] [id number] [address] [place] [address] Dec, Major depressive disorder, r ecurrent episode, moderate F33.1 [place] [address] [place] [id number] [address] [place] [address] Dec, Major depressive disorder, r ecurrent episode, moderate F33.1 [place] [address] [place] [id number] [address] [place] [address] Nov, [facility] [place] [address] [facility] [id number] [address] [place] [address] Nov, Bipolar 1 disorder, mixed F3 1.60 [place] [address] [facility] [id number] [address] [place] [id number] Nov, Major depressive disorder, r ecurrent episode, moderate F33.1 [place] [address] [place] [id number] [address] [place] [address] Nov, Cervicalgia M54.2 ; Arthralg ia of hip, unspecified laterality M25.559 ; Allergic rhinitis J30.9 and Hormone replacement therapy Z79.890 [facility] [address] [facility] [id number] [address] [place] [address] Nov, Other seasonal allergic rhin itis J30.2 [place] [address] [facility] [id number] [address] [place] [address] October, Major depressive disorder, r ecurrent episode, moderate F33.1 [place] [address] [place] [id number] [address] [place] [address] October, Major depressive disorder, r ecurrent episode, moderate F33.1 and Arthralgia of hip, unspecified laterality M25.559 [place] [address] [place] [id number] [address] [place] [address] October, Grief F43.20 ; Hypertension I10 ; Hyperlipidemia, unspecified hyperlipidemia type E78.5 ; Other chronic pain G89.29 and Allergic rhinitis, unspecified allergic rhinitis type J30.9 [place] [address] [facility] [id number] [address] [place] [address] October, Major depressive disorder, r ecurrent episode, moderate F33.1 [place] [address] [facility] [id number] [address] [place] [address] Sep, Major depressive disorder, r ecurrent episode, moderate F33.1 [place] [address] [place] [id number] [address] [place] [address] Sep, [facility] [place] [address] [facility] [id number] [address] [place] [address] Sep, Major depressive disorder, r ecurrent episode, moderate F33.1 [facility] [place] [address] [facility] [id number] [address] [place] [address] Sep, Grief F43.20 [facility] [place] [address] [place] [id number] [address] [place] [address] Aug, Major depressive disorder, r ecurrent episode, moderate F33.1 [place] [address] [place] [id number] [address] [place] [address] Aug, Bipolar 1 disorder, mixed F3 1.60 [place] [address] [place] [id number] [address] [place] [address] Aug, Allergic rhinitis J30.9 ; Ce rvicalgia M54.2 and Low back pain M54.5 [place] [address] [place] [id number] [address] [place] [phone] Aug, Major depressive disorder, r ecurrent episode, moderate F33.1 [facility] [address] [place] [id number] [address] [place] [id number] Aug, Sinusitis J32.9 and Tobacco 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 [facility] [place] [address] [place] [id number] [place] [id number] Aug, [facility] [place] [id number] [place] [id number] Aug, Depressive disorder, not els ewhere classified F32.9 ; Hormone replacement therapy Z79.[address] scan, head R93.0 [place] [address] [address] [place] [id number] [address] [place] [id number] Aug, Major depressive disorder, r ecurrent episode, moderate F33.1 [facility] [place] [address] [place] [id number] [address] [place] [phone] Jul, Major depressive disorder, r ecurrent episode, moderate F33.1 [facility] [place] [address] [facility] [id number] [address] [place] [id number] Jul, Abdominal pain R10.9 and Hyp ertension I10 [facility] [place] [address] [facility] [id number] [address] [place] [phone] Jul, [facility] [place] [address] [place] [id number] [place] [phone] Jul, Major depressive disorder, r ecurrent episode, moderate F33.1 [facility] [place] [address] [facility] [id number] [address] [place] [phone] Jul, [facility] [place], [facility] [address] [place] [id number] [place] [id number] Jul, [facility] [place], [facility] [address] [place] [id number] [address] [place] [id number] Jun, [facility] [place], [facility] [address] [place] [id number] [address] [place] [phone] Jun, Depressive disorder, not els ewhere classified F32.9 [facility] [place] [address] [facility] [id number] [address] [place] [phone] Jun, [facility] [place] [address] [id number] [place] [address] Jun, [facility] [place] [id number] [place] [address] Jun, Arthralgia of hip, unspecifi ed laterality M25.559 ; Bruising, spontaneous R23.3 and Night sweats R61 [facility] [place] [address] [facility] [id number] [address] [place] [address] Jun, [facility] [place] [address] [facility] [id number] [address] [place] [address] Jun, [facility] [place] [address] [place] [id number] [address] [place] [address] May, [facility] [place] [address] [facility] [id number] [address] [place] [address] May, Myalgia M79.1 and Screening, lipid Z13.220 [facility] [place] [address] [id number] [address] [place] [address] Apr, Status post cervical spinal fusion Z98.1 ; Fibromyalgia M79.7 and Unsteady gait R26.81 [facility] [place] [address] [id number] [address] [place] [address] Nov, [facility] [place] [address] [id number] [address] [place] [address] Nov, [facility] [place] [address] [id number] [address] [place] [address] October, [facility] [place] [address] [facility] [id number] [address] [place] [address] October, [facility] [place] [address] [facility] [id number] [address] [place] [address] October, [facility] [place] [address] [facility] [id number] [address] [place] [address] October, [facility] [place] [address] [facility] [id number] [address] [place] [address] October, [facility] [place] [address] [facility] [id number] [address] [place] [address] October, Dysuria 788.1 ; Nausea 787.0 2 and Urinary tract infection 599.0 [facility] [place] [address] [facility] [id number] [address] [place] [address] Sep, [facility] [place] [address] [facility] [id number] [address] [place] [address] Sep, [facility] [place] [address] [facility] [id number] [address] [place] [address] Aug, [facility] [place] [address] [facility] [id number] [address] [place] [address] 25 Aug, 2014 [facility] [address] [id number] [address] [place] [address], [place] [address] 24 Aug, 2014 [facility] [address] [id number] [address] [place] [address], [place] [address] 24 Aug, 2014 [facility] [address] [id number] [address] [place] [address], [place] [address] 23 Aug, 2014 [facility] [address] [id number] [address] [place] [address], [place] [address] 19 Aug, 2014 [facility] [address] [id number] [address] [place] [address], [place] [address] 19 Aug, 2014 [facility] [address] [id number] [address] [place] [address], [place] [address] 19 Aug, 2014 [facility] [address] [id number] [address] [place] [address], [place] [address] 19 Aug, 2014 [facility] [address] [id number] [address] [place] [address], [place] [address] 18 Aug, 2014 [facility] [address] [id number] [address] [place] [address], [place] [address] 18 Aug, 2014 [facility] [address] [id number] [address] [place] [address], [place] [address] 13 Aug, 2014 [facility] [address] [id number] [address] [place] [address], [place] [address] 13 Aug, 2014 [facility] [address] [id number] [address] [place] [address], [place] [address] 11 Aug, 2014 [facility] [address] [id number] [address] [place] [address], [place] [address] 11 Aug, 2014 [facility] [address] [id number] [address] [place] [address], [place] [address] 06 Aug, 2014 [facility] [address] [id number] [address] [place] [address], [place] [address] 06 Aug, 2014 [facility] [address] [id number] [address] [place] [address], [place] [address] 05 Aug, 2014 [facility] [address] [id number] [address] [place] [address], [place] [address] 05 Aug, 2014 [facility] [address] [id number] [address] [place] [address], [place] [address] Aug, 2014 [facility] [address] [id number] [address] [place] [address], [place] [address] Aug, 2014 [facility] [address] [id number] [address] [place] [address], [place] [address] Aug, [facility] [address] [id number] [address] [place] [address], [place] [address] Jul, 2014 [facility] [address] [id number] [address] [place] [address], [place] [address] Jul, 2014 [facility] [address] [id number] [address] [place] [address], [place] [address] Jul, 2014 [facility] [address] [id number] [address] [place] [address], [place] [address] Jul, [facility] [address] [id number] [address] [place] [address], [place] [address] Jul, [facility] [address] [id number] [address] [place] [address], [place] [address] Jul, [facility] [address] [id number] [address] [place] [address], [place] [address] Jul, 2014 [facility] [address] [id number] [address] [place] [address], [place] [address] Jul, 2014 [facility] [address] [id number] [address] [place] [address], [place] [address] Jul, 2014 [facility] [address] [id number] [address] [place] [address], [place] [address] Jul, 2014 [facility] [address] [id number] [address] [place] [address], [place] [address] Jul, 2014 [facility] [address] [id number] [address] [place] [address], [place] [address] Jul, 2014 [facility] [address] [id number] [address] [place] [address], [place] [address] Jul, 2014 [facility] [address] [id number] [address] [place] [address], [place] [address] Jul, [facility] [address] [id number] [address] [place] [address], [place] [address] Jun, [facility] [address] [id number] [address] [place] [address], [place] [address] Jun, [facility] [address] [id number] [address] [place] [address], [place] [address] Jun, [facility] [address] [id number] [address] [place] [address], [place] [address] Jun, [facility] [address] [id number] [address] [place] [address], [place] [address] Jun, [facility] [address] [id number] [address] [place] [address], [place] [address] Jun, [facility] [address] [id number] [address] [place] [address], [place] [address] May, [facility] [address] [id number] [address] [place] [address], [place] [address] May, [facility] [address] [id number] [address] [place] [address], [place] [address] May, [facility] [address] [id number] [address] [place] [address], [place] [address] May, [facility] [address] [id number] [address] [place] [address], [place] [address] May, [facility] [address] [id number] [address] [place] [address], [place] [address] May, [facility] [address] [id number] [address] [place] [address], [place] [address] Apr, [facility] [address] [id number] [address] [place] [address], [place] [address] Apr, [facility] [address] [id number] [address] [place] [address], [place] [address] Apr, [facility] [address] [id number] [address] [place] [address], [place] [address] Apr, [facility] [address] [id number] [address] [place] [address], [place] [address] Apr, [facility] [address] [id number] [address] [place] [address], [place] [address] Apr, [facility] [address] [id number] [address] [place] [address], [place] [address] Mar, [facility] [address] [id number] [address] [place] [address], [place] [address] Mar, [facility] [address] [id number] [address] [place] [address], [place] [address] Mar, [facility] [address] [id number] [address] [place] [address] Mar, [facility] [address] [id number] [address] [place] [address] Mar, [facility] [address] [id number] [address] [place] [address] Mar, [facility] [address] [id number] [address] [place] [address] Mar, [facility] [address] [id number] [address] [place] [address] Mar, [facility] [address] [id number] [address] [place] [address] Mar, [facility] [address] [id number] [address] [place] [address] Mar, [facility] [address] [id number] [address] [place] [address], [place] [address] Mar, [facility] [address] [id number] [address] [place] [address], [place] [address] Mar, [facility] [address] [id number] [address] [place] [address], [place] [address] 30 Feb, 2014 [facility] [address] [id number] [address] [place] [address], [place] [address] Feb, [facility] [address] [id number] [address] [place] [address], [place] [address] Feb, [facility] [address] [id number] [address] [place] [address], [place] [address] Feb, [facility] [address] [id number] [address] [place] [address], [place] [address] Feb, [facility] [address] [id number] [address] [place] [address], [place] [address] Feb, [facility] [address] [id number] [address] [place] [address], [place] [address] Feb, [facility] [address] [id number] [address] [place] [address], [place] [address] Jan, [facility] [address] [id number] [address] [place] [address], [place] [address] Jan, [facility] [address] [id number] [address] [place] [address], [place] [address] Jan, [facility] [address] [id number] [address] [place] [address], [place] [address] Dec, [facility] [address] [id number] [address] [place] [address], [place] [address] Dec, [facility] [address] [id number] [address] [place] [address], [place] [address] Dec, [facility] [address] [id number] [address] [place] [address], [place] [address] Dec, [facility] [address] [id number] [address] [place] [address], [place] [address] Sep, [facility] [address] [id number] [address] [place] [address], [place] [address] Sep, [facility] [address] [id number] [address] [place] [address], [place] [address] Sep, [facility] [address] [id number] [address] [place] [address], [place] [address] Sep, [facility] [address] [id number] [address] [place] [address], [place] [address] Sep, [facility] [address] [id number] [address] [place] [address], [place] [address] Sep, [facility] [address] [id number] [address] [place] [address], [place] [address] Sep, [facility] [address] [id number] [address] [place] [address], [place] [address] Sep, [facility] [address] [id number] [address] [place] [address], [place] [address] Aug, [facility] [address] [id number] [address] [place] [address], [place] [address] Aug, [facility] [address] [id number] [address] [place] [address], [place] [address] May, [facility] [address] [id number] [address] [place] [address], [place] [address] May, [facility] [address] [id number] [address] [place] [address], [place] [address] Apr, [facility] [address] [id number] [address] [place] [address], [place] [address] Apr, [facility] [address] [id number] [address] [place] [address], [place] [address] Apr, [facility] [address] [id number] [address] [place] [address], [place] [address] Apr, [facility] [address] [id number] [address] [place] [address], [place] [address] Apr, [facility] [address] [id number] [address] [place] [address], [place] [address] Apr, [facility] [address] [id number] [address] [place] [address], [place] [address] May, [facility] [address] [id number] [address] [place] [address], [place] [address] 18 May, 2012 [facility] [address] [id number] [address] [place] [address], [place] [address] 15 May, 2012 [facility] [address] [id number] [address] [place] [address], [place] [address] May, [facility] [address] [id number] [address] [place] [address], [place] [address] May, [facility] [address] [id number] [address] [place] [address], [place] [address] May, [facility] [address] [id number] [address] [place] [address], [place] [address] Apr, [facility] [address] [id number] [address] [place] [address], [place] [address] Apr, [facility] [address] [id number] [address] [place] [address], [place] [address] Apr, [facility] [address] [id number] [address] [place] [address], [place] [address] Apr, [facility] [address] [id number] [address] [place] [address], [place] [address] Apr, [facility] [address] [id number] [address] [place] [address], [place] [address] Apr, [facility] [address] [id number] [address] [place] [address], [place] [address] 07 Apr, 2012 [facility] [address] [id number] [address] [place] [address], [place] [address] Apr, [facility] [address] [id number] [address] [place] [address], [place] [address] Apr, [facility] [address] [id number] [address] [place] [address], [place] [address] Apr, [facility] [address] [id number] [address] [place] [address], [place] [address] Mar, [facility] [address] [id number] [address] [place] [address], [place] [address] Mar, [facility] [address] [id number] [address] [place] [address], [place] [address] Mar, [facility] [address] [id number] [address] [place] [address], [place] [address] Mar, [facility] [address] [id number] [address] [place] [address], [place] [address] Mar, [facility] [address] [id number] [address] [place] [address], [place] [address] Mar, [facility] [address] [id number] [address] [place] [address], [place] [address] Mar, [facility] [address] [id number] [address] [place] [address], [place] [address] Mar, [facility] [address] [id number] [address] [place] [address], [place] [address] Mar, [facility] [address] [id number] [address] [place] [address], [place] [address] 25 Feb, 2012 [facility] [address] [id number] [address] [place] [address], [place] [address] 16 Sep2011 [facility] [address] [id number] [address] [place] [address], [place] [address] 11 Feb, 2012 [facility] [address] [id number] [facility] [place] [address] Jan, [facility] [address] [id number] [address] [place] [address], [place] [address] Jan, [facility] [address] [id number] [address] [place] [address], [place] [address] Jan, [facility] [address] [id number] [address] [place] [address], [place] [address] Jan, [facility] [address] [id number] [address] [place] [address], [place] [address] Jan, [facility] [address] [id number] [address] [place] [address], [place] [address] Jan, [facility] [address] [id number] [address] [place] [address], [place] [address] Jan, [facility] [address] [id number] [address] [place] [address], [place] [address] Jan, [facility] [address] [id number] [address] [place] [address], [place] [address] Jan, [facility] [address] [id number] [address] [place] [address], [place] [address] Jan, [facility] [address] [id number] [address] [place] [address], [place] [id number] Dec, [facility] [address] [id number] [address] [place] [address], [place] [address] Dec, [facility] [address] [id number] [address] [place] [address], [place] [address] Dec, [facility] [address] [id number] [address] [place] [address], [place] [address] Dec, [facility] [address] [id number] [address] [place] [address], [place] [address] Nov, [facility] [address] [id number] [address] [place] [address], [place] [address] 08 Nov, 2011 [facility] [place] [address] [id number] [address] [place] [id number] Nov, [facility] [address] [id number] [address] [place] [id number] October, [facility] [address] [id number] [address] [place] [id number] October, [facility] [address] [id number] [address] [place] [id number] October, [facility] [place] [address] [id number] [address] [place] [id number] October, [facility] [place] [address] [id number] [address] [place] [id number] October, [facility] [place] [address] [id number] [address] [place] [id number] October, [facility] [address] [id number] [address] [place] [id number] Aug, [facility] [place] [address] [id number] [address] [place] [id number] Mar, [facility] [place] [address] [id number] [address] [place] [phone] Nov, [facility] [place] [address] [id number] [address] [place] [phone] May, [facility] [place] [address] [id number] [address] [place] [id number] May, [facility] [place] [address] [id number] [address] [place] [id number] Apr, [facility] [place] [address] [id number] [address] [place] [phone] Mar, [facility] [place] [address] [id number] [address] [place] [id number] Mar, IMMUNIZATIONS No Known Immunizations SOCIAL HISTORY [...]
--- OUTSIDE RECORDS SUMMARY | 2019-06-19 05:14 | XMS REPORT ---
Author Author Sydnie HANCOCK [facility] Address [address] [place] [address] Care Team Providers Care Crop Puller Name Role Phone NAHOMY HANCOCK Unavailable PROBLEMS Type Condition ICD9-CM Code JLU08-OL Code Onset Dates Condition S tatus SNOMED Code Problem Age-related osteoporosis without current pathological fracture M81.0 Active 44045570 Problem Sensorineural hearing loss (SNHL) of both ears H90 .3 Active 977508318 Problem Abnormal CT scan, head R93.0 Active 227930745 Problem Arthralgia of hip, unspecified laterality M25.559 Active 06462912 Problem Bruising, spontaneous R23.3 Active 873699320 Problem Hypertension I10 Active 6671874 3 Problem Night sweats R61 Active 8184178 0 Problem Imbalance R26.89 Active 515909435 Problem Hammer toe of right foot M20.41 Activ e 276426996 Problem Hormone replacement therapy Z79.890 Ac tive 845813206 Problem Bipolar 1 disorder, mixed F31.60 Acti ve 24605726 Problem Gastritis without bleeding, unspecified chronicity, unspecified gastritis type K29.70 Active 023589029 Problem Ataxia R27.0 Active 37120149 Problem Hearing loss, unspecified laterality H91.90 Active 35470959 Problem History of colon polyps Z86.010 Active 252785880 Problem Allergic rhinitis J30.9 Active 61 340620 Problem Hematuria, unspecified type R31.9 Ac tive 25210087 Problem Generalized anxiety disorder F41.1 A ctive 26360035 Problem Major depressive disorder, recurrent episode, moderate F33.1 Active 049369592 Problem Fibromyalgia M79.7 Active 6090452 7 Problem Bladder spasm N32.89 Active 181920 006 Problem Tobacco use disorder F17.200 Active 474483906 Problem Other chronic pain G89.29 Active 8 5836377 Problem Post menopausal syndrome N95.1 Activ e 808391132 Problem Grief F43.20 Active 12898174 Problem Hyperlipidemia, unspecified hyperlipidemia type E7 8.5 Active 08957851 Problem Acute left-sided low back pain with left-sided sciatica M54.42 Active 491450839 Problem Sciatica of left side M54.32 Active 27314383 Problem Plantar wart of right foot B07.0 Act mitchell [id number] Problem Slow transit constipation K59.01 Acti ve 91355921 ALLERGIES No Information ENCOUNTERS Encounter Location Date Diagnosis [place] [address] [place] [id number] [place] [address] Jan, [facility] [address] [address] Dec, [place] [address] [address] Dec, [place] [address] [address] Dec, Bipolar 1 disorder, mixed F3 1.60 [place] [address] [place] [id number] [place] [address] Nov, Bipolar 1 disorder, mixed F3 1.60 [place] [address] [address] Nov, Bipolar 1 disorder, mixed F3 1.60 ; Generalized anxiety disorder F41.1 ; Tobacco use disorder F17.200 and 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 [place] [address] [place] [id number] [place] [address] Nov, [facility] [address] [place] [id number] [place] [address] Nov, Bipolar 1 disorder, mixed F3 1.60 [place] [address] [place] [id number] [place] [address] October, Bipolar 1 disorder, mixed F3 1.60 [place] [address] [address] October, Bipolar 1 disorder, mixed F3 1.60 [place] [address] [place] [address] October, [place] [address] [place] [address] October, Bipolar 1 disorder, mixed F3 1.60 ; Generalized anxiety disorder F41.1 and Tobacco use disorder F17.200 [place] [address] [place] [address] Sep, [place] [address] [place] [id number] [place] [address] Sep, Encounter for [facility] wellness exam Z00.00 ; Major depressive disorder, recurrent episode, moderate F33.1 ; Allergic rhinitis J30.9 ; Bipolar 1 disorder, mixed F31.60 ; Fibromyalgia M79.7 ; Hyperlipidemia, unspecified hyperlipidemia type E78.5 ; Hormone replacement therapy Z79.890 ; Encounter for screening for lung cancer Z12.2 and Tobacco use disorder F17.200 [place] [address] [place] [address] Sep, Bipolar 1 disorder, mixed F3 1.60 [place] [address] [place] [id number] [place] [address] Sep, Other chronic pain G89.29 ; Hyperlipidemia, unspecified hyperlipidemia type E78.5 ; Breast cancer screening Z12.31 and Post menopausal syndrome N95.1 [place] [address] [place] [id number] [place] [address] Sep, Bipolar 1 disorder, mixed F3 1.60 [place] [address] [place] [id number] [place] [address] Sep, Bipolar 1 disorder, mixed F3 1.60 ; Generalized anxiety disorder F41.1 and Tobacco use disorder F17.200 [place] [address] [place] [id number] [place] [address] Sep, Gastritis without bleeding, unspecified chronicity, unspecified gastritis type K29.70 [place] [address] [facility] [id number] [address] [place] [address] 08 Sep, 2018 Exercise counseling Z71.82 [place] [address] [facility] [id number] [address] [place] [address] Aug, Exercise counseling Z71.82 [place] [address] [facility] [id number] [address] [place] [address] Aug, Bipolar 1 disorder, mixed F3 1.60 [place] [address] [facility] [id number] [address] [place] [address] Aug, Exercise counseling Z71.82 [place] [address] [place] [id number] [place] [address] Aug, Bipolar 1 disorder, mixed F3 1.60 [place] [address] [place] [id number] [place] [address] Aug, Gastritis without bleeding, unspecified chronicity, unspecified gastritis type K29.70 ; Tobacco abuse Z72.0 ; Generalized anxiety disorder F41.1 and Weight gain R63.5 [place] [address] [place] [id number] [place] [address] Aug, Bipolar 1 disorder, mixed F3 1.60 ; Generalized anxiety disorder F41.1 and Tobacco use disorder F17.200 [place] [address] [place] [id number] [place] [address] Jul, Bipolar 1 disorder, mixed F3 1.60 [place] [address] [facility] [id number] [address] [place] [address] Jul, [place] [address] [place] [id number] [place] [address] Jul, Bipolar 1 disorder, mixed F3 1.60 [place] [address] [place] [id number] [place] [address] 11 Jul, 2018 Allergic rhinitis J30.9 ; Ma darion depressive disorder, recurrent episode, moderate F33.1 and Tobacco 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 [facility] [address] [facility] [id number] [address] [place] [address] Jun, [facility] [address] [facility] [id number] [address] [place] [address] Jun, [facility] [address] [facility] [id number] [address] [place] [address] Jun, Bipolar 1 disorder, mixed F3 1.60 [facility] [address] [facility] [id number] [address] [place] [address] Jun, Bipolar 1 disorder, mixed F3 1.60 [facility] [address] [facility] [id number] [address] [place] [address] Jun, Bipolar 1 disorder, mixed F3 1.60 [facility] [address] [facility] [id number] [address] [place] [address] Jun, Generalized anxiety disorder F41.1 ; Tobacco abuse Z72.0 and Major depressive disorder, recurrent episode, moderate F33.1 [facility] [address] [facility] [id number] [address] [place] [address] May, Bipolar 1 disorder, mixed F3 1.60 [facility] [address] [facility] [id number] [address] [place] [address] May, Bipolar 1 disorder, mixed F3 1.60 and Generalized anxiety disorder F41.1 [facility] [address] [facility] [id number] [address] [place] [address] May, Bipolar 1 disorder, mixed F3 1.60 [facility] [address] [facility] [id number] [address] [place] [address] May, Allergic rhinitis J30.9 [facility] [address] [facility] [id number] [address] [place] [address] May, Bipolar 1 disorder, mixed F3 1.60 [facility] [address] [facility] [id number] [address] [place] [address] May, [facility] [address] [place] [id number] [place] [address] Apr, Allergic rhinitis J30.9 ; Dy sfunction of both eustachian tubes H69.83 ; History of bladder surgery Z98.890 and Cervicalgia M54.2 [facility] [address] [place] [id number] [place] [address] Mar, Bipolar 1 disorder, mixed F3 1.60 [place] [address] [place] [id number] [place] [address] Mar, [place] [address] [address] Mar, Slow transit constipation K5 9.01 ; Encounter for immunization Z23 and Generalized anxiety disorder F41.1 [place] [address] [place] [id number] [place] [address] 27 Feb, 2018 Bipolar 1 disorder, mixed F3 1.60 [place] [address] [place] [id number] [place] [address] 26 Feb, 2018 Allergic rhinitis J30.9 [place] [id number] [place] [id number] [place] [address] 24 Feb, 2018 Bipolar 1 disorder, mixed F3 1.60 [place] [address] [place] [id number] [place] [address] 20 Feb, 2018 Bipolar 1 disorder, mixed F3 1.60 and Generalized anxiety disorder F41.1 [place] [address] [place] [id number] [place] [address] 13 Feb, 2018 Bipolar 1 disorder, mixed F3 1.60 [place] [address] [place] [id number] [place] [address] 11 Feb, 2018 Allergic rhinitis J30.9 [facility] [address] [place] [id number] [place] [address] 05 Feb, 2018 [place] [address] [place] [id number] [place] [address] Jan, Bipolar 1 disorder, mixed F3 1.60 [facility] [address] [facility] [id number] [address] [place] [address] Jan, Low back pain M54.5 ; Hyperl ipidemia, unspecified hyperlipidemia type E78.5 and Bipolar 1 disorder, mixed F31.60 [facility] [address] [facility] [id number] [address] [place] [address] Jan, Bipolar 1 disorder, mixed F3 1.60 [facility] [address] [facility] [id number] [address] [place] [address] Jan, Bipolar 1 disorder, mixed F3 1.60 [place] [address] [place] [id number] [place] [address] Jan, Bipolar 1 disorder, mixed F3 1.60 [place] [address] [place] [id number] [place] [address] Jan, Bipolar 1 disorder, mixed F3 1.60 [facility] [address] [place] [id number] [place] [address] Dec, Bipolar 1 disorder, mixed F3 1.60 ; Generalized anxiety disorder F41.1 and Other terminal gauger (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 Z79.899 [place] [address] [place] [id number] [place] [address] Dec, Other prison (current) dr ug therapy Z79.899 [facility] [address] [facility] [id number] [address] [place] [address] Dec, Bipolar 1 disorder, mixed F3 1.60 [place] [address] [facility] [id number] [address] [place] [address] Dec, Bipolar 1 disorder, mixed F3 1.60 [facility] [address] [place] [id number] [place] [address] Nov, Bipolar 1 disorder, mixed F3 1.60 [place] [address] [facility] [id number] [address] [place] [address] Nov, Bipolar 1 disorder, mixed F3 1.60 [facility] [address] [place] [id number] [place] [address] Nov, Bipolar 1 disorder, mixed F3 1.60 [facility] [address] [facility] [id number] [address] [place] [address] 11 Nov, 2017 Allergic rhinitis J30.9 [facility] [address] [place] [id number] [place] [address] Nov, Allergic rhinitis J30.9 [facility] [address] [place] [id number] [place] [address] Nov, [facility] [address] [address] Nov, Bipolar 1 disorder, mixed F3 1.60 [place] [address] [address] Nov, Fibromyalgia M79.7 and Aller gic rhinitis J30.9 [facility] [address] [place] [address] October, Bipolar 1 disorder, mixed F3 1.60 [facility] [address] [place] [id number] [place] [address] October, Acute nasopharyngitis J00 [facility] [address] [address] October, Bitten or stung by nonvenomo us insect and other nonvenomous arthropods, initial encounter W57.XXXA and Insect bite (nonvenomous) of abdominal wall, initial encounter S30.861A [place] [address] [place] [id number] [place] [address] October, Insect bite (nonvenomous) of abdominal wall, initial encounter S30.861A ; Bitten or stung by nonvenomous insect and other nonvenomous arthropods, initial encounter W57.XXXA ; Allergic rhinitis J30.9 and Low back pain M54.5 [facility] [address] [id number] [address] [place] [address] October, Bipolar 1 disorder, mixed F3 1.60 [facility] [address] [id number] [address] [place] [address] October, [facility] [address] [id number] [address] [place] [address] October, [facility] [address] [id number] [address] [place] [address] October, Bipolar 1 disorder, mixed F3 1.60 [facility] [address] [id number] [address] [place] [address] Sep, Bipolar 1 disorder, mixed F3 1.60 [facility] [address] [id number] [address] [place] [address] Sep, Other chronic pain G89.29 [facility] [address] [id number] [address] [place] [address] Sep, [facility] [address] [id number] [address] [place] [address] Sep, Bipolar 1 disorder, mixed F3 1.60 [facility] [address] [facility] [id number] [address] [place] [address] Sep, Allergic rhinitis J30.9 and Sciatica of left side M54.32 [facility] [address] [id number] [address] [place] [address] Sep, Bipolar 1 disorder, mixed F3 1.60 [facility] [address] [id number] [address] [place] [address] Sep, Bipolar 1 disorder, mixed F3 1.60 and Generalized anxiety disorder F41.1 [facility] [address] [id number] [address] [place] [address] Aug, [facility] [address] [facility] [id number] [address] [place] [address] Aug, Bipolar 1 disorder, mixed F3 1.60 [facility] [address] [id number] [address] [place] [address] Aug, Bipolar 1 disorder, mixed F3 1.60 [facility] [address] [facility] [id number] [address] [place] [address] Aug, [facility] [address] [facility] [id number] [address] [place] [address] Aug, Generalized anxiety disorder F41.1 [facility] [address] [id number] [address] [place] [address] Aug, Bipolar 1 disorder, mixed F3 1.60 [facility] [address] [facility] [id number] [address] [place] [address] Aug, Plantar wart of right foot B 07.0 [facility] [address] [facility] [id number] [address] [place] [address] Aug, Bipolar 1 disorder, mixed F3 1.60 [facility] [address] [facility] [id number] [address] [place] [address] Jul, Bipolar 1 disorder, mixed F3 1.60 [facility] [address] [facility] [id number] [address] [place] [address] Jul, [facility] [address] [facility] [id number] [address] [place] [address] 14 Jul, 2017 Bipolar 1 disorder, mixed F3 1.60 [facility] [address] [facility] [id number] [address] [place] [address] Jul, Generalized anxiety disorder F41.1 [facility] [address] [facility] [id number] [address] [place] [address] Jul, Bipolar 1 disorder, mixed F3 1.60 [facility] [address] [facility] [id number] [address] [place] [address] Jul, Acute left-sided low back pa in with left-sided sciatica M54.42 [place] [address] [place] [address] 05 Jul, 2017 Coccydynia M53.3 [place] [address] [place] [id number] [place] [address] Jun, Bipolar 1 disorder, mixed F3 1.60 [facility] [place] [address] [place] [address] Jun, Acute nasopharyngitis J00 [place] [address] [place] [id number] [place] [address] Jun, Bipolar 1 disorder, mixed F3 1.60 [place] [address] [address] Jun, Fibromyalgia M79.7 [place] [address] [address] Jun, Bipolar 1 disorder, mixed F3 1.60 [place] [address] [address] Jun, Fibromyalgia M79.7 and Bipol ar 1 disorder, mixed F31.60 [place] [address] [address] May, Bipolar 1 disorder, mixed F3 1.60 ; Generalized anxiety disorder F41.1 and 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 [place] [address] [place] [address] May, Bipolar 1 disorder, mixed F3 1.60 [facility] [address] [place] [address] 14 May, 2017 Cough R05 and Body aches R52 [facility] [place] [address] [place] [id number] [place] [address] 10 May, 2017 Bladder spasm N32.89 and Acu te cystitis without hematuria N30.00 [place] [address] [address] 07 May, 2017 Bipolar 1 disorder, mixed F3 1.60 [facility] [address] [place] [address] 30 Apr, 2017 [facility] [address] [address] Apr, Major depressive disorder, r ecurrent episode, moderate F33.1 and Encounter for immunization Z23 [facility] [address] [address] 29 Apr, 2017 Bipolar 1 disorder, mixed F3 1.60 [place] [address] [place] [address] Apr, Bipolar 1 disorder, mixed F3 1.60 [place] [address] [address] 16 Apr, 2017 Bipolar 1 disorder, mixed F3 1.60 [facility] [address] [address] 13 Apr, 2017 Yeast vaginitis B37.3 [place] [address] [address] 09 Apr, 2017 Bipolar 1 disorder, mixed F3 1.60 [facility] [address] [address] 07 Apr, 2017 [address]itis L03[address] for immunization Z23 [facility] [address] [address] 02 Apr, 2017 Bipolar 1 disorder, mixed F3 1.60 [facility] [address] [address] Mar, Bipolar 1 disorder, mixed F3 1.60 [place] [address] [address] Mar, Bipolar 1 disorder, mixed F3 1.60 [facility] [address] [place] [address] Mar, Imbalance R26.89 and Encount er for immunization Z23 [place] [address] [place] [address] Mar, Generalized anxiety disorder F41.1 [place] [address] [address] Mar, Bipolar 1 disorder, mixed F3 1.60 [place] [address] [address] Mar, Generalized anxiety disorder F41.1 [place] [address] [place] [address] Mar, Bipolar 1 disorder, mixed F3 1.60 [place] [address] [address] Mar, Bipolar 1 disorder, mixed F3 1.60 [place] [address] [address] Feb, Bipolar 1 disorder, mixed F3 1.60 [place] [address] [address] Feb, Bipolar 1 disorder, mixed F3 1.60 and Generalized anxiety disorder F41.1 [place] [address] [address] Feb, Gastritis without bleeding, unspecified chronicity, unspecified gastritis type K29.70 ; Hammer toe of right foot M20.41 and Other viral warts B07.8 [place] [address] [address] 20 Feb, 2017 Bipolar 1 disorder, mixed F3 1.60 [place] [address] [address] 13 Feb, 2017 Bipolar 1 disorder, mixed F3 1.60 [place] [address] [address] 05 Feb, 2017 Bipolar 1 disorder, mixed F3 1.60 [facility] [address] [facility] [id number] [address] [place] [address] 31 Jan, 2017 Encounter for screening mamm ogram for breast cancer Z12.31 ; Other viral warts B07.8 and Allergic rhinitis J30.9 [facility] [address] [facility] [id number] [address] [place] [address] Jan, Bipolar 1 disorder, mixed F3 1.60 [facility] [address] [facility] [id number] [address] [place] [address] Jan, Bipolar 1 disorder, mixed F3 1.60 [place] [address] [facility] [id number] [address] [place] [address] Jan, [place] [address] [facility] [id number] [address] [place] [address] Jan, Bipolar 1 disorder, mixed F3 1.60 [place] [address] [facility] [id number] [address] [place] [address] Jan, Bipolar 1 disorder, mixed F3 1.60 [place] [id number] [facility] [id number] [address] [place] [address] Jan, Allergic rhinitis J30.9 ; He maturia R31.9 and Colon cancer screening Z12.11 [facility] [address] [facility] [id number] [address] [place] [address] Dec, Bipolar 1 disorder, mixed F3 1.60 [facility] [address] [facility] [id number] [address] [place] [address] 18 Dec, 2016 Bipolar 1 disorder, mixed F3 1.60 ; Generalized anxiety disorder F41.1 and 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 [facility] [address] [facility] [id number] [address] [place] [address] Dec, Bipolar 1 disorder, mixed F3 1.60 [facility] [address] [place] [id number] [place] [address] Dec, Bipolar 1 disorder, mixed F3 1.60 [facility] [address] [facility] [id number] [address] [place] [id number] Dec, Bipolar 1 disorder, mixed F3 1.60 [facility] [address] [facility] [id number] [address] [place] [id number] Dec, Low back pain M54.5 and Recu rrent urinary tract infection N39.0 [facility] [address] [facility] [id number] [address] [place] [id number] Nov, Bipolar 1 disorder, mixed F3 1.60 [facility] [address] [facility] [id number] [address] [place] [id number] Nov, Bipolar 1 disorder, mixed F3 1.60 [facility] [address] [facility] [id number] [address] [place] [id number] Nov, Bipolar 1 disorder, mixed F3 1.60 [facility] [address] [facility] [id number] [address] [place] [id number] Nov, Bipolar 1 disorder, mixed F3 1.60 [facility] [address] [facility] [id number] [address] [place] [id number] Nov, [facility] [address] [facility] [id number] [address] [place] [id number] Nov, Anesthesia of skin R20.0 ; F requent UTI N39.0 ; Tobacco abuse Z72.0 and Colon cancer screening Z12.11 [facility] [address] [facility] [id number] [address] [place] [id number] Nov, Bipolar 1 disorder, mixed F3 1.60 [facility] [address] [facility] [id number] [address] [place] [id number] October, Bipolar 1 disorder, mixed F3 1.60 [facility] [address] [facility] [id number] [address] [place] [address] October, Bipolar 1 disorder, mixed F3 1.60 [facility] [address] [facility] [id number] [address] [place] [address] October, Bipolar 1 disorder, mixed F3 1.60 [place] [address] [address] October, Bipolar 1 disorder, mixed F3 1.60 [place] [address] [address] October, Bipolar 1 disorder, mixed F3 1.60 [place] [address] [address] October, Cervicalgia M54.2 and Bipola r 1 disorder, mixed F31.60 [place] [address] [address] October, Hypertension I10 ; Hyperlipi demia, unspecified hyperlipidemia type E78.5 and Family history of thyroid disease Z83.49 [place] [address] [address] October, [place] [address] [address] October, Hypertension I10 ; Hyperlipi demia, unspecified hyperlipidemia type E78.5 and Family history of thyroid problem Z83.49 [place] [address] [address] October, Bipolar 1 disorder, mixed F3 1.60 [place] [address] [address] Sep, Bipolar 1 disorder, mixed F3 1.60 [place] [address] [place] [id number] [place] [address] Sep, Bipolar 1 disorder, mixed F3 1.60 [place] [address] [address] Sep, Bipolar 1 disorder, mixed F3 1.60 [place] [address] [address] Sep, History of colon polyps Z86. 010 and Hematochezia K92.1 [facility] [address] [place] [address] Sep, Major depressive disorder, r ecurrent episode, moderate F33.1 [facility] [address] [place] [id number] [address] [place] [address] Sep, Bipolar 1 disorder, mixed F3 1.60 [facility] [address] [place] [id number] [address] [place] [address] Aug, Hot flashes due to menopause N95.1 [facility] [address] [place] [id number] [place] [address] Aug, Bipolar 1 disorder, mixed F3 1.60 [facility] [address] [address] Aug, [facility] [address] [address] Aug, Bipolar 1 disorder, mixed F3 1.60 [facility] [address] [address] Aug, Bipolar 1 disorder, mixed F3 1.60 [facility] [address] [place] [id number] [place] [address] Aug, Hot flashes due to menopause N95.1 ; Cervicalgia M54.2 and Ataxia R27.0 [facility] [address] [place] [id number] [address] [place] [address] Jul, Bipolar 1 disorder, mixed F3 1.60 [facility] [address] [place] [id number] [address] [place] [address] Jul, Bipolar 1 disorder, mixed F3 1.60 [facility] [address] [place] [id number] [address] [place] [address] Jul, Bipolar 1 disorder, mixed F3 1.60 [facility] [address] [address] 13 Jul, 2016 Bipolar 1 disorder, mixed F3 1.60 [place] [address] [place] [address] 10 Jul, 2016 Bipolar 1 disorder, mixed F3 1.60 [place] [address] 08 Jul, 2016 Cervicalgia M54.2 ; Tremor R 25.1 ; Hearing abnormally acute, unspecified laterality H93.239 ; Alopecia L65.9 ; Encounter for immunization Z23 and Family history of thyroid disease Z83.49 [place] [address] 06 Jul, 2016 Bipolar 1 disorder, mixed F3 1.60 [place] [address] [place] [address] Jun, [place] [address] [place] [address] Jun, Hearing disorder, unspecifie d laterality H93.299 [place] [address] [place] [address] Jun, Bipolar 1 disorder, mixed F3 1.60 [place] [address] [address] Jun, Bipolar 1 disorder, mixed F3 1.60 [place] [address] [address] Jun, Allergic rhinitis J30.9 [place] [address] [address] Jun, Bipolar 1 disorder, mixed F3 1.60 [place] [address] [place] [address] Jun, Bipolar 1 disorder, mixed F3 1.60 [place] [address] [address] Jun, Allergic rhinitis J30.9 [facility] [address] [facility] [id number] [address] [place] [address] Jun, Allergic rhinitis J30.9 [facility] [address] [facility] [id number] [address] [place] [address] Jun, Bipolar 1 disorder, mixed F3 1.60 [facility] [address] [facility] [facility] [id number] [address] [place] [address] May, Bipolar 1 disorder, mixed F3 1.60 [facility] [address] [id number] [address] [place] [address] May, Bipolar 1 disorder, mixed F3 1.60 [facility] [address] [facility] [id number] [address] [place] [address] May, [facility] [address] [id number] [address] [place] [address] May, Bipolar 1 disorder, mixed F3 1.60 [facility] [address] [facility] [facility] [id number] [address] [place] [address] May, Bipolar 1 disorder, mixed F3 1.60 [facility] [address] [facility] [id number] [address] [place] [address] May, [facility] [address] [id number] [address] [place] [address] May, [facility] [address] [id number] [address] [place] [address] May, [facility] [address] [id number] [address] [place] [address] May, Abdominal pain, unspecified location R10.9 [facility] [address] [facility] [id number] [address] [place] [address] May, [facility] [address] [id number] [address] [place] [address] Apr, Hematuria R31.9 ; Ataxia R27 .0 and Hearing loss, unspecified laterality H91.90 [facility] [address] [place] [id number] [address] [place] [address] Apr, Bipolar 1 disorder, mixed F3 1.60 [facility] [address] [address] 11 Apr, 2016 Acute effusion of both middl e ears H65.193 [facility] [address] [address] 10 Apr, 2016 Hematuria R31.9 and Pyelonep hritis N12 [facility] [address] [address] Apr, [place] [address] [address] Mar, Bipolar 1 disorder, mixed F3 1.60 [facility] [address] [address] Mar, [facility] [address] [address] Mar, Bipolar 1 disorder, mixed F3 1.60 [place] [address] [address] Mar, Bipolar 1 disorder, mixed F3 1.60 [facility] [address] [address] Mar, Encounter for immunization Z 23 and Gastritis without bleeding, unspecified chronicity, unspecified gastritis type K29.70 [facility] [address] [address] Mar, Bipolar 1 disorder, mixed F3 1.60 and Grief F43.20 [place] [address] [address] Mar, Gastritis without bleeding, unspecified chronicity, unspecified gastritis type K29.70 [place] [address] [address] Mar, Bipolar 1 disorder, mixed F3 1.60 [place] [address] [facility] [id number] [address] [place], [place] [id number] Mar, Gastritis without bleeding, unspecified chronicity, unspecified gastritis type K29.70 [facility] [address] [facility] [id number] [address] [place] [address] Mar, [place] [address] [place] [id number] [address] [place], [place] [id number] Feb, Bipolar 1 disorder, mixed F3 1.60 [place] [address] [place] [id number] [address] [place], [place] [id number] Feb, Bipolar 1 disorder, mixed F3 1.60 and Grief F43.20 [place] [address] [place] [id number] [address] [place] [address] Feb, Gastritis without bleeding, unspecified chronicity, unspecified gastritis type K29.70 [place] [address] [place] [id number] [address] [place] [address] 14 Feb, 2016 Bipolar 1 disorder, mixed F3 1.60 [facility] [address] [place] [id number] [address] [place] [address] Feb, Gastroesophageal reflux dise ase, esophagitis presence not specified K21.9 [facility] [address] [place] [id number] [address] [place] [address] Jan, Bipolar 1 disorder, mixed F3 1.60 [place] [address] [place] [id number] [address] [place] [address] Jan, Bipolar 1 disorder, mixed F3 1.60 and Unsteady gait R26.81 [place] [address] [place] [id number] [address] [place] [address] Jan, Bipolar 1 disorder, mixed F3 1.60 [facility] [address] [place] [id number] [address] [place] [address] Jan, Bipolar 1 disorder, mixed F3 1.60 and 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 [facility] [address] [facility] [facility] [id number] [address] [place] [address] Jan, Bipolar 1 disorder, mixed F3 1.60 [facility] [address] [id number] [address] [place] [address] Jan, Bipolar 1 disorder, mixed F3 1.60 [place] [address] [place] [id number] [address] [place] [address] Jan, Bipolar 1 disorder, mixed F3 1.60 ; Grief F43.20 and 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 [place] [address] [place] [id number] [address] [place] [address] Jan, Bipolar 1 disorder, mixed F3 1.60 [place] [address] [place] [id number] [address] [place] [address] Dec, [place] [address] [place] [id number] [address] [place] [address] Dec, Bipolar 1 disorder, mixed F3 1.60 ; Vitamin D deficiency, unspecified E55.9 ; H/O allergic rhinitis Z87.09 ; Other chronic pain G89.29 and Dorsalgia, unspecified M54.9 [place] [address] [place] [id number] [address] [place] [address] Dec, [place] [address] [place] [id number] [address] [place] [address] Dec, Bipolar 1 disorder, mixed F3 1.60 [place] [address] [place] [id number] [address] [place] [address] Dec, Major depressive disorder, r ecurrent episode, moderate F33.1 [place] [address] [place] [id number] [address] [place] [address] Dec, Major depressive disorder, r ecurrent episode, moderate F33.1 [place] [address] [place] [id number] [address] [place] [address] Nov, [facility] [address] [id number] [address] [place] [address] Nov, Bipolar 1 disorder, mixed F3 1.60 [place] [address] [facility] [id number] [address] [place] [address] Nov, Major depressive disorder, r ecurrent episode, moderate F33.1 [place] [address] [place] [id number] [address] [place] [address] Nov, Cervicalgia M54.2 ; Arthralg ia of hip, unspecified laterality M25.559 ; Allergic rhinitis J30.9 and Hormone replacement therapy Z79.890 [facility] [address] [id number] [address] [place] [address] Nov, Other seasonal allergic rhin itis J30.2 [place] [address] [facility] [id number] [address] [place] [address] October, Major depressive disorder, r ecurrent episode, moderate F33.1 [place] [address] [place] [id number] [address] [place] [address] October, Major depressive disorder, r ecurrent episode, moderate F33.1 and Arthralgia of hip, unspecified laterality M25.559 [place] [address] [place] [id number] [address] [place] [address] October, Grief F43.20 ; Hypertension I10 ; Hyperlipidemia, unspecified hyperlipidemia type E78.5 ; Other chronic pain G89.29 and Allergic rhinitis, unspecified allergic rhinitis type J30.9 [place] [address] [facility] [id number] [address] [place] [address] October, Major depressive disorder, r ecurrent episode, moderate F33.1 [place] [address] [facility] [id number] [address] [place] [address] Sep, Major depressive disorder, r ecurrent episode, moderate F33.1 [place] [address] [place] [id number] [address] [place] [address] Sep, [facility] [address] [id number] [address] [place] [address] Sep, Major depressive disorder, r ecurrent episode, moderate F33.1 [facility] [address] [facility] [id number] [address] [place] [address] Sep, Grief F43.20 [facility] [address] [place] [id number] [address] [place] [address] Aug, Major depressive disorder, r ecurrent episode, moderate F33.1 [place] [address] [place] [id number] [address] [place] [address] Aug, Bipolar 1 disorder, mixed F3 1.60 [place] [address] [place] [id number] [address] [place] [address] Aug, Allergic rhinitis J30.9 ; Ce rvicalgia M54.2 and Low back pain M54.5 [place] [address] [place] [id number] [address] [place] [address] Aug, Major depressive disorder, r ecurrent episode, moderate F33.1 [facility] [address] [place] [id number] [address] [place] [address] Aug, Sinusitis J32.9 and Tobacco 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 [facility] [address] [place] [id number] [address] [place] [address] Aug, [facility] [address] [place] [address] Aug, Depressive disorder, not els ewhere classified F32.9 ; Hormone replacement therapy Z79.[address] scan, head R93.0 [place] [address] [place] [id number] [address] [place] [address] Aug, Major depressive disorder, r ecurrent episode, moderate F33.1 [facility] [address] [place] [id number] [address] [place] [address] Jul, Major depressive disorder, r ecurrent episode, moderate F33.1 [facility] [address] [facility] [id number] [address] [place] [address] Jul, Abdominal pain R10.9 and Hyp ertension I10 [facility] [address] [id number] [address] [place] [address] Jul, [facility] [address] [place] [id number] [place] [address] Jul, Major depressive disorder, r ecurrent episode, moderate F33.1 [facility] [address] [id number] [address] [place] [address] Jul, [facility] [address] [place] [id number] [address] [place] [address] Jul, [facility] [address] [place] [id number] [address] [place] [address] Jun, [facility] [address] [place] [id number] [address] [place] [address] Jun, Depressive disorder, not els ewhere classified F32.9 [facility] [address] [facility] [facility] [id number] [address] [place] [address] Jun, [facility] [address] [place] [address] Jun, [facility] [address] [place] [address] Jun, Arthralgia of hip, unspecifi ed laterality M25.559 ; Bruising, spontaneous R23.3 and Night sweats R61 [facility] [address] [facility] [id number] [address] [place] [address] Jun, [facility] [address] [facility] [id number] [address] [place] [address] Jun, [facility] [address] [place] [id number] [address] [place] [address] May, [facility] [address] [facility] [id number] [address] [place] [address] May, Myalgia M79.1 and Screening, lipid Z13.220 [facility] [address] [id number] [address] [place] [address] Apr, Status post cervical spinal fusion Z98.1 ; Fibromyalgia M79.7 and Unsteady gait R26.81 [facility] [address] [id number] [address] [place] [address] Nov, [facility] [address] [id number] [address] [place] [address] Nov, [facility] [address] [id number] [address] [place] [address] October, [facility] [address] [facility] [facility] [id number] [address] [place] [address] October, [facility] [address] [facility] [id number] [address] [place] [address] October, [facility] [address] [facility] [facility] [id number] [address] [place] [address] October, [facility] [address] [facility] [facility] [id number] [address] [place] [address] October, [facility] [address] [facility] [id number] [address] [place] [address] October, Dysuria 788.1 ; Nausea 787.0 2 and Urinary tract infection 599.0 [facility] [address] [facility] [facility] [id number] [address] [place] [address] Sep, [facility] [address] [facility] [id number] [address] [place] [address] Sep, [facility] [address] [facility] [id number] [address] [place] [address] Aug, [facility] [address] [facility] [facility] [id number] [address] [place] [address] 25 Aug, 2014 [facility] [address] [id number] [address] [place] [address], [place] [address] 24 Aug, 2014 [facility] [address] [id number] [address] [place] [address], [place] [address] 24 Aug, 2014 [facility] [address] [id number] [address] [place] [address], [place] [address] 23 Aug, 2014 [facility] [address] [id number] [address] [place] [address], [place] [address] 19 Aug, 2014 [facility] [address] [id number] [address] [place] [address], [place] [address] 19 Aug, 2014 [facility] [address] [id number] [address] [place] [address], [place] [address] 19 Aug, 2014 [facility] [address] [id number] [address] [place] [address], [place] [address] 19 Aug, 2014 [facility] [address] [id number] [address] [place] [address], [place] [address] 18 Aug, 2014 [facility] [address] [id number] [address] [place] [address], [place] [address] 18 Aug, 2014 [facility] [address] [id number] [address] [place] [address], [place] [address] 13 Aug, 2014 [facility] [address] [id number] [address] [place] [address], [place] [address] 13 Aug, 2014 [facility] [address] [id number] [address] [place] [address], [place] [address] 11 Aug, 2014 [facility] [address] [id number] [address] [place] [address], [place] [address] 11 Aug, 2014 [facility] [address] [id number] [address] [place] [address], [place] [address] 06 Aug, 2014 [facility] [address] [id number] [address] [place] [address], [place] [address] 06 Aug, 2014 [facility] [address] [id number] [address] [place] [address], [place] [address] 05 Aug, 2014 [facility] [address] [id number] [address] [place] [address], [place] [address] 05 Aug, 2014 [facility] [address] [id number] [address] [place] [address], [place] [address] Aug, 2014 [facility] [address] [id number] [address] [place] [address], [place] [address] Aug, 2014 [facility] [address] [id number] [address] [place] [address], [place] [address] Aug, [facility] [address] [id number] [address] [place] [address], [place] [address] Jul, 2014 [facility] [address] [id number] [address] [place] [address], [place] [address] Jul, 2014 [facility] [address] [id number] [address] [place] [address], [place] [address] Jul, 2014 [facility] [address] [id number] [address] [place] [address], [place] [address] Jul, [facility] [address] [id number] [address] [place] [address], [place] [address] Jul, [facility] [address] [id number] [address] [place] [address], [place] [address] Jul, [facility] [address] [id number] [address] [place] [address], [place] [address] Jul, 2014 [facility] [address] [id number] [address] [place] [address], [place] [address] Jul, 2014 [facility] [address] [id number] [address] [place] [address], [place] [address] Jul, 2014 [facility] [address] [id number] [address] [place] [address], [place] [address] Jul, 2014 [facility] [address] [id number] [address] [place] [address], [place] [address] Jul, 2014 [facility] [address] [id number] [address] [place] [address], [place] [address] Jul, 2014 [facility] [address] [id number] [address] [place] [address], [place] [address] Jul, 2014 [facility] [address] [id number] [address] [place] [address], [place] [address] Jul, [facility] [address] [id number] [address] [place] [address], [place] [address] Jun, [facility] [address] [id number] [address] [place] [address], [place] [address] Jun, [facility] [address] [id number] [address] [place] [address], [place] [address] Jun, [facility] [address] [id number] [address] [place] [address], [place] [address] Jun, [facility] [address] [id number] [address] [place] [address], [place] [address] Jun, [facility] [address] [id number] [address] [place] [address], [place] [address] Jun, [facility] [address] [id number] [address] [place] [address], [place] [address] May, [facility] [address] [id number] [address] [place] [address], [place] [address] May, [facility] [address] [id number] [address] [place] [address], [place] [address] May, [facility] [address] [id number] [address] [place] [address], [place] [address] May, [facility] [address] [id number] [address] [place] [address], [place] [address] May, [facility] [address] [id number] [address] [place] [address], [place] [address] May, [facility] [address] [id number] [address] [place] [address], [place] [address] Apr, [facility] [address] [id number] [address] [place] [address], [place] [address] Apr, [facility] [address] [id number] [address] [place] [address], [place] [address] Apr, [facility] [address] [id number] [address] [place] [address], [place] [address] Apr, [facility] [address] [id number] [address] [place] [address], [place] [address] Apr, [facility] [address] [id number] [address] [place] [address], [place] [address] Apr, [facility] [address] [id number] [address] [place] [address], [place] [address] Mar, [facility] [address] [id number] [address] [place] [address], [place] [address] Mar, [facility] [address] [id number] [address] [place] [address], [place] [address] Mar, [facility] [address] [id number] [address] [place] [address] Mar, [facility] [address] [id number] [address] [place] [address] Mar, [facility] [address] [id number] [address] [place] [address] Mar, [facility] [address] [id number] [address] [place] [address] Mar, [facility] [address] [id number] [address] [place] [address] Mar, [facility] [address] [id number] [address] [place] [address] Mar, [facility] [address] [id number] [address] [place] [address] Mar, [facility] [address] [id number] [address] [place] [address], [place] [address] Mar, [facility] [address] [id number] [address] [place] [address], [place] [address] Mar, [facility] [address] [id number] [address] [place] [address], [place] [address] 30 Feb, 2014 [facility] [address] [id number] [address] [place] [address], [place] [address] Feb, [facility] [address] [id number] [address] [place] [address], [place] [address] Feb, [facility] [address] [id number] [address] [place] [address], [place] [address] Feb, [facility] [address] [id number] [address] [place] [address], [place] [address] Feb, [facility] [address] [id number] [address] [place] [address], [place] [address] Feb, [facility] [address] [id number] [address] [place] [address], [place] [address] Feb, [facility] [address] [id number] [address] [place] [address], [place] [address] Jan, [facility] [address] [id number] [address] [place] [address], [place] [address] Jan, [facility] [address] [id number] [address] [place] [address], [place] [address] Jan, [facility] [address] [id number] [address] [place] [address], [place] [address] Dec, [facility] [address] [id number] [address] [place] [address], [place] [address] Dec, [facility] [address] [id number] [address] [place] [address], [place] [address] Dec, [facility] [address] [id number] [address] [place] [address], [place] [address] Dec, [facility] [address] [id number] [address] [place] [address], [place] [address] Sep, [facility] [address] [id number] [address] [place] [address], [place] [address] Sep, [facility] [address] [id number] [address] [place] [address], [place] [address] Sep, [facility] [address] [id number] [address] [place] [address], [place] [address] Sep, [facility] [address] [id number] [address] [place] [address], [place] [address] Sep, [facility] [address] [id number] [address] [place] [address], [place] [address] Sep, [facility] [address] [id number] [address] [place] [address], [place] [address] Sep, [facility] [address] [id number] [address] [place] [address], [place] [address] Sep, [facility] [address] [id number] [address] [place] [address], [place] [address] Aug, [facility] [address] [id number] [address] [place] [address], [place] [address] Aug, [facility] [address] [id number] [address] [place] [address], [place] [address] May, [facility] [address] [id number] [address] [place] [address], [place] [address] May, [facility] [address] [id number] [address] [place] [address], [place] [address] Apr, [facility] [address] [id number] [address] [place] [address], [place] [address] Apr, [facility] [address] [id number] [address] [place] [address], [place] [address] Apr, [facility] [address] [id number] [address] [place] [address], [place] [address] Apr, [facility] [address] [id number] [address] [place] [address], [place] [address] Apr, [facility] [address] [id number] [address] [place] [address], [place] [address] Apr, [facility] [address] [id number] [address] [place] [address], [place] [address] May, [facility] [address] [id number] [address] [place] [address], [place] [address] 18 May, 2012 [facility] [address] [id number] [address] [place] [address], [place] [address] 15 May, 2012 [facility] [address] [id number] [address] [place] [address], [place] [address] May, [facility] [address] [id number] [address] [place] [address], [place] [address] May, [facility] [address] [id number] [address] [place] [address], [place] [address] May, [facility] [address] [id number] [address] [place] [address], [place] [address] Apr, [facility] [address] [id number] [address] [place] [address], [place] [address] Apr, [facility] [address] [id number] [address] [place] [address], [place] [address] Apr, [facility] [address] [id number] [address] [place] [address], [place] [address] Apr, [facility] [address] [id number] [address] [place] [address], [place] [address] Apr, [facility] [address] [id number] [address] [place] [address], [place] [address] Apr, [facility] [address] [id number] [address] [place] [address], [place] [address] 07 Apr, 2012 [facility] [address] [id number] [address] [place] [address], [place] [address] Apr, [facility] [address] [id number] [address] [place] [address], [place] [address] Apr, [facility] [address] [id number] [address] [place] [address], [place] [address] Apr, [facility] [address] [id number] [address] [place] [address], [place] [address] Mar, [facility] [address] [id number] [address] [place] [address], [place] [address] Mar, [facility] [address] [id number] [address] [place] [address], [place] [address] Mar, [facility] [address] [id number] [address] [place] [address], [place] [address] Mar, [facility] [address] [id number] [address] [place] [address], [place] [address] Mar, [facility] [address] [id number] [address] [place] [address], [place] [address] Mar, [facility] [address] [id number] [address] [place] [address], [place] [address] Mar, [facility] [address] [id number] [address] [place] [address], [place] [address] Mar, [facility] [address] [id number] [address] [place] [address], [place] [address] Mar, [facility] [address] [id number] [address] [place] [address], [place] [address] 25 Feb, 2012 [facility] [address] [id number] [address] [place] [address], [place] [address] 16 Sep2011 [facility] [address] [id number] [address] [place] [address], [place] [address] 11 Feb, 2012 [facility] [address] [id number] [facility] [place] [address] Jan, [facility] [address] [id number] [address] [place] [address], [place] [address] Jan, [facility] [address] [id number] [address] [place] [address], [place] [address] Jan, [facility] [address] [id number] [address] [place] [address], [place] [address] Jan, [facility] [address] [id number] [address] [place] [address], [place] [address] Jan, [facility] [address] [id number] [address] [place] [address], [place] [address] Jan, [facility] [address] [id number] [address] [place] [address], [place] [address] Jan, [facility] [address] [id number] [address] [place] [address], [place] [address] Jan, [facility] [address] [id number] [address] [place] [address], [place] [address] Jan, [facility] [address] [id number] [address] [place] [address], [place] [address] Jan, [facility] [address] [id number] [address] [place] [address], [place] [address] Dec, [facility] [address] [id number] [address] [place] [address], [place] [address] Dec, [facility] [address] [id number] [address] [place] [address], [place] [address] Dec, [facility] [address] [id number] [address] [place] [address], [place] [address] Dec, [facility] [address] [id number] [address] [place] [address], [place] [address] Nov, [facility] [address] [id number] [address] [place] [address], [place] [address] 08 Nov, 2011 [facility] [address] [id number] [address] [place] [address] Nov, [facility] [address] [id number] [address] [place] [address] October, [facility] [address] [id number] [address] [place] [address] October, [facility] [address] [id number] [address] [place] [address] October, [facility] [address] [id number] [address] [place] [address] October, [facility] [address] [id number] [address] [place] [address] October, [facility] [address] [id number] [address] [place] [address] October, [facility] [address] [id number] [address] [place] [address] Aug, [facility] [address] [id number] [address] [place] [address] Mar, [facility] [address] [id number] [address] [place] [address] Nov, [facility] [address] [id number] [address] [place] [address] May, [facility] [address] [id number] [address] [place] [address] May, [facility] [address] [id number] [address] [place] [address] Apr, [facility] [address] [id number] [address] [place] [address] Mar, [facility] [address] [id number] [address] [place] [address] Mar, IMMUNIZATIONS No Known Immunizations SOCIAL HISTORY [...]
--- OUTSIDE RECORDS SUMMARY | 2019-06-19 05:15 | XMS REPORT ---
Author Author Sydnie HANCOCK [facility] Address [address] [place] [address] Care Team Providers Care Jockey Valet Name Role Phone NAHOMY HANCOCK Unavailable PROBLEMS Type Condition ICD9-CM Code JGB30-GD Code Onset Dates Condition S tatus SNOMED Code Problem Age-related osteoporosis without current pathological fracture M81.0 Active 51838880 Problem Sensorineural hearing loss (SNHL) of both ears H90 .3 Active 132702305 Problem Abnormal CT scan, head R93.0 Active 181092204 Problem Arthralgia of hip, unspecified laterality M25.559 Active 80769943 Problem Bruising, spontaneous R23.3 Active 586168143 Problem Hypertension I10 Active 0326350 3 Problem Night sweats R61 Active 6570417 0 Problem Imbalance R26.89 Active 935064621 Problem Hammer toe of right foot M20.41 Activ e 227328678 Problem Hormone replacement therapy Z79.890 Ac tive 468074279 Problem Bipolar 1 disorder, mixed F31.60 Acti ve 67486233 Problem Gastritis without bleeding, unspecified chronicity, unspecified gastritis type K29.70 Active 120183348 Problem Ataxia R27.0 Active 25027910 Problem Hearing loss, unspecified laterality H91.90 Active 67614327 Problem History of colon polyps Z86.010 Active 609806880 Problem Allergic rhinitis J30.9 Active 61 941817 Problem Hematuria, unspecified type R31.9 Ac tive 15377820 Problem Generalized anxiety disorder F41.1 A ctive 90612571 Problem Major depressive disorder, recurrent episode, moderate F33.1 Active 901737010 Problem Fibromyalgia M79.7 Active 9832302 7 Problem Bladder spasm N32.89 Active 021086 006 Problem Tobacco use disorder F17.200 Active 690129132 Problem Other chronic pain G89.29 Active 8 8987600 Problem Post menopausal syndrome N95.1 Activ e 139110462 Problem Grief F43.20 Active 97899429 Problem Hyperlipidemia, unspecified hyperlipidemia type E7 8.5 Active 77349831 Problem Acute left-sided low back pain with left-sided sciatica M54.42 Active 953494223 Problem Sciatica of left side M54.32 Active 69843736 Problem Plantar wart of right foot B07.0 Act mitchell [id number] Problem Slow transit constipation K59.01 Acti ve [id number] ALLERGIES No Information ENCOUNTERS Encounter Location Date Diagnosis [facility] [address] [place] [id number] [place] [address] Jan, [facility] [address] [facility] [id number] [address] [place] [address] Dec, [facility] [address] [id number] [place] [address] Dec, [facility] [address] [id number] [place] [address] Dec, [facility] [address] [place] [id number] [place] [address] Nov, Bipolar 1 disorder, mixed F3 1.60 [facility] [address] [id number] [place] [address] Nov, Bipolar 1 disorder, mixed F3 1.60 ; Generalized anxiety disorder F41.1 ; Tobacco use disorder F17.200 and Other parts counterman (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 Z79.899 [facility] [id number] [place] [address] Nov, [facility] [address] [place] [id number] [place] [address] Nov, Bipolar 1 disorder, mixed F3 1.60 [facility] [address] [place] [id number] [place] [address] October, Bipolar 1 disorder, mixed F3 1.60 [facility] [address] [id number] [place] [address] October, Bipolar 1 disorder, mixed F3 1.60 [place] [address] [place] [address] October, [place] [address] [address] October, Bipolar 1 disorder, mixed F3 1.60 ; Generalized anxiety disorder F41.1 and Tobacco use disorder F17.200 [place] [address] [address] Sep, [place] [address] [place] [id number] [address] [place] [address] Sep, Encounter for Medicare annua wellness exam Z00.00 ; Major depressive disorder, recurrent episode, moderate F33.1 ; Allergic rhinitis J30.9 ; Bipolar 1 disorder, mixed F31.60 ; Fibromyalgia M79.7 ; Hyperlipidemia, unspecified hyperlipidemia type E78.5 ; Hormone replacement therapy Z79.890 ; Encounter for screening for lung cancer Z12.2 and Tobacco use disorder F17.200 [place] [address] [place] [id number] [place] [address] Sep, Bipolar 1 disorder, mixed F3 1.60 [place] [address] [address] Sep, Other chronic pain G89.29 ; Hyperlipidemia, unspecified hyperlipidemia type E78.5 ; Breast cancer screening Z12.31 and Post menopausal syndrome N95.1 [place] [address] [place] [address] Sep, Bipolar 1 disorder, mixed F3 1.60 [place] [address] [place] [id number] [place] [address] Sep, Bipolar 1 disorder, mixed F3 1.60 ; Generalized anxiety disorder F41.1 and Tobacco use disorder F17.200 [place] [address] [place] [id number] [place] [address] Sep, Gastritis without bleeding, unspecified chronicity, unspecified gastritis type K29.70 [place] [address] [facility] [id number] [address] [place] [address] 08 Sep, 2018 Exercise counseling Z71.82 [place] [address] [facility] [id number] [address] [place] [address] Aug, Exercise counseling Z71.82 [place] [address] [place] [id number] [place] [address] Aug, Bipolar 1 disorder, mixed F3 1.60 [place] [address] [facility] [id number] [address] [place] [address] Aug, Exercise counseling Z71.82 [place] [address] [place] [id number] [place] [address] Aug, Bipolar 1 disorder, mixed F3 1.60 [place] [address] [place] [id number] [place] [address] Aug, Gastritis without bleeding, unspecified chronicity, unspecified gastritis type K29.70 ; Tobacco abuse Z72.0 ; Generalized anxiety disorder F41.1 and Weight gain R63.5 [place] [address] [facility] [id number] [address] [place] [address] Aug, Bipolar 1 disorder, mixed F3 1.60 ; Generalized anxiety disorder F41.1 and Tobacco use disorder F17.200 [place] [address] [place] [id number] [place] [address] Jul, Bipolar 1 disorder, mixed F3 1.60 [place] [address] [facility] [id number] [address] [place] [address] Jul, [place] [address] [facility] [id number] [address] [place] [address] Jul, Bipolar 1 disorder, mixed F3 1.60 [place] [address] [facility] [id number] [address] [place] [address] 11 Jul, 2018 Allergic rhinitis J30.9 ; Ma darion depressive disorder, recurrent episode, moderate F33.1 and Tobacco 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 [facility] [address] [id number] [address] [place] [address] Jun, [facility] [address] [id number] [address] [place] [address] Jun, [facility] [address] [facility] [id number] [address] [place] [address] Jun, Bipolar 1 disorder, mixed F3 1.60 [facility] [address] [facility] [id number] [address] [place] [address] Jun, Bipolar 1 disorder, mixed F3 1.60 [facility] [address] [id number] [address] [place] [address] Jun, Bipolar 1 disorder, mixed F3 1.60 [facility] [address] [facility] [id number] [address] [place] [address] Jun, Generalized anxiety disorder F41.1 ; Tobacco abuse Z72.0 and Major depressive disorder, recurrent episode, moderate F33.1 [facility] [address] [facility] [id number] [address] [place] [address] May, Bipolar 1 disorder, mixed F3 1.60 [facility] [address] [facility] [id number] [address] [place] [address] May, Bipolar 1 disorder, mixed F3 1.60 and Generalized anxiety disorder F41.1 [facility] [address] [facility] [id number] [address] [place] [address] May, Bipolar 1 disorder, mixed F3 1.60 [facility] [address] [facility] [id number] [address] [place] [address] May, Allergic rhinitis J30.9 [facility] [address] [facility] [id number] [address] [place] [address] May, Bipolar 1 disorder, mixed F3 1.60 [facility] [address] [facility] [id number] [address] [place] [address] May, [facility] [address] [place] [id number] [place] [address] Apr, Allergic rhinitis J30.9 ; Dy sfunction of both eustachian tubes H69.83 ; History of bladder surgery Z98.[address] [facility] [address] [place] [id number] [place] [address] Mar, Bipolar 1 disorder, mixed F3 1.60 [place] [address] [address] Mar, [place] [address] [address] Mar, Slow transit constipation K5 9.01 ; Encounter for immunization Z23 and Generalized anxiety disorder F41.1 [place] [address] [place] [id number] [place] [address] 27 Feb, 2018 Bipolar 1 disorder, mixed F3 1.60 [place] [address] [place] [address] 26 Feb, [address] [facility] [id number] [place] [address] 24 Feb, 2018 Bipolar 1 disorder, mixed F3 1.60 [place] [address] [place] [id number] [place] [address] 20 Feb, 2018 Bipolar 1 disorder, mixed F3 1.60 and Generalized anxiety disorder F41.1 [place] [address] [place] [id number] [place] [address] 13 Feb, 2018 Bipolar 1 disorder, mixed F3 1.60 [place] [address] [place] [id number] [place] [address] 11 Feb, [address] [facility] [address] [place] [id number] [place] [address] 05 Feb, 2018 [facility] [address] [id number] [place] [address] Jan, Bipolar 1 disorder, mixed F3 1.60 [facility] [address] [place] [id number] [place] [address] Jan, Low back pain M54.5 ; Hyperl ipidemia, unspecified hyperlipidemia type E78.5 and Bipolar 1 disorder, mixed F31.60 [facility] [address] [place] [id number] [place] [address] Jan, Bipolar 1 disorder, mixed F3 1.60 [facility] [address] [place] [id number] [place], [place] [address] Jan, Bipolar 1 disorder, mixed F3 1.60 [facility] [address] [place] [id number] [place] [address] Jan, Bipolar 1 disorder, mixed F3 1.60 [facility] [id number] [place] [address] Jan, Bipolar 1 disorder, mixed F3 1.60 [facility] [address] [place] [id number] [place] [address] Dec, Bipolar 1 disorder, mixed F3 1.60 ; Generalized anxiety disorder F41.1 and Other parts counterman (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 Z79.899 [facility] [address] [place] [id number] [place] [address] Dec, Other fdc (current) dr ug therapy Z79.899 [facility] [address] [place] [id number] [place] [address] Dec, Bipolar 1 disorder, mixed F3 1.60 [facility] [address] [place] [id number] [place] [address] Dec, Bipolar 1 disorder, mixed F3 1.60 [facility] [address] [place] [id number] [place], [place] [id number] Nov, Bipolar 1 disorder, mixed F3 1.60 [facility] [address] [place] [id number] [place] [address] Nov, Bipolar 1 disorder, mixed F3 1.60 [place] [address] [place] [id number] [place] [address] 13 Nov, 2017 Bipolar 1 disorder, mixed F3 1.60 [place] [address] [facility] [id number] [address] [place] [address] Nov, Allergic rhinitis J30.9 [facility] [address] [place] [address] Nov, Allergic rhinitis J30.9 [place] [address] [place] [id number] [place] [address] Nov, [place] [address] [address] Nov, Bipolar 1 disorder, mixed F3 1.60 [place] [address] [address] Nov, Fibromyalgia M79.7 and Aller gic rhinitis J30.9 [place] [address] [place] [address] October, Bipolar 1 disorder, mixed F3 1.60 [facility] [place] [address] [address] October, Acute nasopharyngitis J00 [facility] [place] [address] [address] October, Bitten or stung by nonvenomo us insect and other nonvenomous arthropods, initial encounter W57.XXXA and Insect bite (nonvenomous) of abdominal wall, initial encounter S30.861A [place] [address] [address] October, Insect bite (nonvenomous) of abdominal wall, initial encounter S30.861A ; Bitten or stung by nonvenomous insect and other nonvenomous arthropods, initial encounter W57.XXXA ; Allergic rhinitis J30.9 and Low back pain M54.5 [place] [address] [id number] [address] [place] [address] October, Bipolar 1 disorder, mixed F3 1.60 [facility] [address] [id number] [address] [place] [address] October, [facility] [address] [id number] [address] [place] [address] October, [facility] [address] [id number] [address] [place] [address] October, Bipolar 1 disorder, mixed F3 1.60 [facility] [address] [id number] [address] [place] [address] Sep, Bipolar 1 disorder, mixed F3 1.60 [facility] [address] [facility] [id number] [address] [place] [address] Sep, Other chronic pain G89.29 [facility] [address] [id number] [address] [place] [address] Sep, [facility] [address] [id number] [address] [place] [address] Sep, Bipolar 1 disorder, mixed F3 1.60 [facility] [address] [facility] [id number] [address] [place] [address] Sep, Allergic rhinitis J30.9 and Sciatica of left side M54.32 [facility] [address] [facility] [id number] [address] [place] [address] Sep, Bipolar 1 disorder, mixed F3 1.60 [facility] [address] [id number] [address] [place] [address] Sep, Bipolar 1 disorder, mixed F3 1.60 and Generalized anxiety disorder F41.1 [facility] [address] [facility] [id number] [address] [place] [address] Aug, [facility] [address] [facility] [id number] [address] [place] [address] Aug, Bipolar 1 disorder, mixed F3 1.60 [facility] [address] [id number] [address] [place] [address] Aug, Bipolar 1 disorder, mixed F3 1.60 [facility] [address] [facility] [id number] [address] [place] [address] Aug, [facility] [address] [facility] [id number] [address] [place] [address] Aug, Generalized anxiety disorder F41.1 [facility] [address] [facility] [id number] [address] [place] [address] Aug, Bipolar 1 disorder, mixed F3 1.60 [facility] [address] [facility] [id number] [address] [place] [address] Aug, Plantar wart of right foot B 07.0 [facility] [address] [facility] [id number] [address] [place] [address] Aug, Bipolar 1 disorder, mixed F3 1.60 [facility] [address] [facility] [id number] [address] [place] [address] Jul, Bipolar 1 disorder, mixed F3 1.60 [facility] [address] [facility] [id number] [address] [place] [address] Jul, [facility] [address] [facility] [id number] [address] [place] [address] 14 Jul, 2017 Bipolar 1 disorder, mixed F3 1.60 [facility] [address] [facility] [id number] [address] [place] [address] Jul, Generalized anxiety disorder F41.1 [facility] [address] [facility] [id number] [address] [place] [address] Jul, Bipolar 1 disorder, mixed F3 1.60 [facility] [address] [facility] [id number] [address] [place] [address] 07 Jul, 2017 Acute left-sided low back pa in with left-sided sciatica M54.42 [facility] [address] [address] Jul, Coccydynia M53.3 [place] [address] [address] Jun, Bipolar 1 disorder, mixed F3 1.60 [facility] [address] [address] Jun, Acute nasopharyngitis J00 [place] [address] [address] Jun, Bipolar 1 disorder, mixed F3 1.60 [place] [address] [address] Jun, Fibromyalgia M79.7 [place] [address] [address] Jun, Bipolar 1 disorder, mixed F3 1.60 [place] [address] [address] Jun, Fibromyalgia M79.7 and Bipol ar 1 disorder, mixed F31.60 [place] [address] [address] May, Bipolar 1 disorder, mixed F3 1.60 ; Generalized anxiety disorder F41.1 and Other parts counterman (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 Z79.899 [place] [address] [address] May, Bipolar 1 disorder, mixed F3 1.60 [facility] [address] [address] May, Cough R05 and Body aches R52 [facility] [address] [address] May, Bladder spasm N32.89 and Acu te cystitis without hematuria N30.00 [place] [address] [address] 07 May, 2017 Bipolar 1 disorder, mixed F3 1.60 [facility] [address] [place] [address] 30 Apr, 2017 [facility] [address] Apr, Major depressive disorder, r ecurrent episode, moderate F33.1 and Encounter for immunization Z23 [facility] [address] [place] [address] Apr, Bipolar 1 disorder, mixed F3 1.60 [facility] [address] Apr, Bipolar 1 disorder, mixed F3 1.60 [place] [address] 16 Apr, 2017 Bipolar 1 disorder, mixed F3 1.60 [facility] [address] [address] Apr, Yeast vaginitis B37.3 [facility] [address] [address] 09 Apr, 2017 Bipolar 1 disorder, mixed F3 1.60 [facility] [address] [place] [id number] [place] [address] 07 Apr, 2017 Cellulitis L03.[address] for immunization Z23 [facility] [address] [place] [id number] [address] [place] [address] Apr, Bipolar 1 disorder, mixed F3 1.60 [facility] [address] [address] Mar, Bipolar 1 disorder, mixed F3 1.60 [facility] [address] [address] Mar, Bipolar 1 disorder, mixed F3 1.60 [facility] [address] [address] Mar, Imbalance R26.89 [address] for immunization Z23 [place] [address] [place] [address] Mar, Generalized anxiety disorder F41.1 [place] [address] [place] [id number] [place] [address] Mar, Bipolar 1 disorder, mixed F3 1.60 [place] [address] [place] [id number] [place] [address] Mar, Generalized anxiety disorder F41.1 [place] [address] [place] [id number] [place] [address] Mar, Bipolar 1 disorder, mixed F3 1.60 [place] [address] [place] [id number] [place] [address] Mar, Bipolar 1 disorder, mixed F3 1.60 [place] [address] [place] [id number] [address] [place] [address] Feb, Bipolar 1 disorder, mixed F3 1.60 [place] [address] [address] Feb, Bipolar 1 disorder, mixed F3 1.60 and Generalized anxiety disorder F41.1 [place] [address] [place] [id number] [place] [address] Feb, Gastritis without bleeding, unspecified chronicity, unspecified gastritis type K29.70 ; Hammer toe of right foot M20.41 and Other viral warts B07.8 [place] [address] [place] [id number] [place] [address] Feb, Bipolar 1 disorder, mixed F3 1.60 [place] [address] [place] [id number] [address] [place] [id number] Feb, Bipolar 1 disorder, mixed F3 1.60 [place] [address] [place] [id number] [address] [place] [phone] 05 Feb, 2017 Bipolar [address] disorder, [address] [facility] [address] [facility] [id number] [address] [place] [phone] Jan, Encounter for screening mamm ogram for breast cancer Z12.31 ; Other viral warts B07.[address] All[address] rh[address] J[address].9 [facility] [address] [facility] [id number] [address] [place] [id number] Jan, Bipolar 1 disorder, mixed F3 1.60 [facility] [address] [facility] [id number] [address] [place] [phone] Jan, Bipolar 1 disorder, mixed F3 1.60 [place] [address] [facility] [id number] [address] [place] [phone] Jan, [facility] [address] [facility] [id number] [address] [place] [id number] Jan, Bipolar 1 disorder, mixed F3 1.60 [place] [address] [facility] [id number] [address] [place] [id number] Jan, Bipolar 1 disorder, mixed F3 1.60 [facility] [address] [facility] [id number] [address] [place] [phone] Jan, Allergic rhinitis J30.9 ; He maturia R31.9 and Colon cancer screening Z12.11 [facility] [address] [facility] [id number] [address] [place] [phone] Dec, Bipolar 1 disorder, mixed F3 1.60 [facility] [address] [facility] [id number] [address] [place] [phone] Dec, Bipolar 1 disorder, mixed F3 1.60 ; Generalized anxiety disorder F41.1 and Other fdc (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 Z79.899 [facility] [address] [facility] [id number] [address] [place] [phone] Dec, Bipolar 1 disorder, mixed F3 1.60 [facility] [address] [facility] [facility] [id number] [address] [place] [address] Dec, Bipolar 1 disorder, mixed F3 1.60 [facility] [address] [facility] [id number] [address] [place] [address] Dec, Bipolar 1 disorder, mixed F3 1.60 [facility] [address] [facility] [id number] [address] [place] [address] Dec, Low back pain M54.5 and Recu rrent urinary tract infection N39.0 [facility] [address] [facility] [id number] [address] [place] [address] Nov, Bipolar 1 disorder, mixed F3 1.60 [facility] [address] [facility] [id number] [address] [place] [address] Nov, Bipolar 1 disorder, mixed F3 1.60 [place] [address] [place] [id number] [address] [place] [address] Nov, Bipolar 1 disorder, mixed F3 1.60 [facility] [address] [place] [id number] [address] [place] [address] Nov, Bipolar 1 disorder, mixed F3 1.60 [facility] [address] [facility] [id number] [address] [place] [address] Nov, [place] [address] [place] [id number] [address] [place] [address] Nov, Anesthesia of skin R20.0 ; F requent UTI N39.0 ; Tobacco abuse Z72.0 and Colon cancer screening Z12.11 [facility] [address] [facility] [id number] [address] [place] [address] Nov, Bipolar 1 disorder, mixed F3 1.60 [facility] [address] [facility] [id number] [address] [place] [address] October, Bipolar 1 disorder, mixed F3 1.60 [facility] [address] [facility] [id number] [address] [place] [address] October, Bipolar 1 disorder, mixed F3 1.60 [facility] [address] [place] [id number] [address] [place] [address] October, Bipolar 1 disorder, mixed F3 1.60 [place] [address] [place] [id number] [address] [place] [address] October, Bipolar 1 disorder, mixed F3 1.60 [place] [address] [place] [id number] [address] [place] [address] October, Bipolar 1 disorder, mixed F3 1.60 [place] [address] [address] October, Cervicalgia M54.2 and Bipola r 1 disorder, mixed F31.60 [place] [address] [address] October, Hypertension I10 ; Hyperlipi demia, unspecified hyperlipidemia type E78.5 and Family history of thyroid disease Z83.49 [place] [address] [address] October, [place] [address] [address] October, Hypertension I10 ; Hyperlipi demia, unspecified hyperlipidemia type E78.5 and Family history of thyroid problem Z83.49 [place] [address] [address] October, Bipolar 1 disorder, mixed F3 1.60 [place] [address] [address] Sep, Bipolar 1 disorder, mixed F3 1.60 [place] [address] [place] [id number] [address] [place] [address] Sep, Bipolar 1 disorder, mixed F3 1.60 [place] [address] [place] [id number] [place] [address] Sep, Bipolar 1 disorder, mixed F3 1.60 [place] [address] [place] [id number] [address] [place] [address] Sep, History of colon polyps Z86. [address] [facility] [address] [place] [id number] [address] [place] [address] Sep, Major depressive disorder, r ecurrent episode, moderate F33.1 [facility] [address] [facility] [id number] [address] [place] [address] Sep, Bipolar 1 disorder, mixed F3 1.60 [facility] [address] [facility] [id number] [address] [place] [address] Aug, Hot flashes due to menopause N95.1 [facility] [address] [facility] [id number] [address] [place] [address] Aug, Bipolar 1 disorder, mixed F3 1.60 [place] [address] [place] [id number] [address] [place] [address] Aug, [place] [address] [place] [id number] [address] [place] [address] Aug, Bipolar 1 disorder, mixed F3 1.60 [place] [address] [place] [id number] [address] [place] [address] Aug, Bipolar 1 disorder, mixed F3 1.60 [place] [address] [place] [id number] [address] [place] [address] Aug, Hot flashes due to menopause N95.1 ; Cervicalgia M54.[address] [facility] [address] [facility] [id number] [address] [place] [address] Jul, Bipolar 1 disorder, mixed F3 1.60 [place] [address] [facility] [id number] [address] [place] [address] Jul, Bipolar 1 disorder, mixed F3 1.60 [facility] [address] [facility] [id number] [address] [place] [address] Jul, Bipolar 1 disorder, mixed F3 1.60 [facility] [address] [place] [id number] [address] [place] [address] 13 Jul, 2016 Bipolar 1 disorder, mixed F3 1.60 [facility] [address] Jul, Bipolar 1 disorder, mixed F3 1.60 [facility] [address] [place] [id number] [address] [place], [place] [address] 08 Jul, 2016 Cervicalgia M54.2 ; Tremor R 25.1 ; Hearing abnormally acute, unspecified laterality H93.239 ; Alopecia L65.9 ; Encounter for immunization Z23 and Family history of thyroid disease Z83.49 [place] [address] Jul, Bipolar 1 disorder, mixed F3 1.60 [place] [address] [place] [address] Jun, [place] [address] [place] [address]22[address] Jun, Hearing disorder, unspecifie d laterality H93.299 [place] [address] [address] Jun, Bipolar 1 disorder, mixed F3 1.60 [facility] [address] [place] [id number] [address] [place] [address] Jun, Bipolar 1 disorder, mixed F3 1.60 [place] [address] [place] [address] Jun, Allergic rhinitis J30.9 [facility] [address] [place] [id number] [address] [place] [address] Jun, Bipolar 1 disorder, mixed F3 1.60 [place] [address] [place] [id number] [address] [place], [place] [id number] Jun, Bipolar 1 disorder, mixed F3 1.60 [facility] [address] [place] [id number] [address] [place] [address] Jun, Allergic rhinitis J30.9 [facility] [address] [facility] [id number] [address] [place] [address] Jun, Allergic rhinitis J30.9 [facility] [address] [facility] [id number] [address] [place] [address] Jun, Bipolar 1 disorder, mixed F3 1.60 [facility] [address] [facility] [id number] [address] [place] [address] May, Bipolar 1 disorder, mixed F3 1.60 [facility] [address] [id number] [address] [place] [address] May, Bipolar 1 disorder, mixed F3 1.60 [facility] [address] [facility] [id number] [address] [place] [address] May, [facility] [address] [facility] [id number] [address] [place] [address] May, Bipolar 1 disorder, mixed F3 1.60 [facility] [address] [facility] [id number] [address] [place] [address] May, Bipolar 1 disorder, mixed F3 1.60 [facility] [address] [facility] [id number] [address] [place] [address] May, [facility] [address] [facility] [id number] [address] [place] [address] May, [facility] [address] [place] [id number] [address] [place] [address] May, [facility] [address] [facility] [id number] [address] [place] [address] May, Abdominal pain, unspecified location R10.9 [facility] [address] [facility] [id number] [address] [place] [address] May, [facility] [address] [facility] [id number] [address] [place] [address] Apr, Hematuria R31.9 ; Ataxia R27 .0 and Hearing loss, unspecified laterality H91.90 [place] [id number] [place] [address] Apr, Bipolar 1 disorder, mixed F3 1.60 [facility] [address] [place] [id number] [address] [place] [address] Apr, Acute effusion of both middl e ears H65.193 [place] [address] [place] [id number] [address] [place] [address] 10 Apr, 2016 Hematuria R31.9 and Pyelonep hritis N12 [place] [address] [address] Apr, [place] [address] [address] Mar, Bipolar 1 disorder, mixed F3 1.60 [place] [address] [address] Mar, [place] [address] [address] Mar, Bipolar 1 disorder, mixed F3 1.60 [place] [address] [address] Mar, Bipolar 1 disorder, mixed F3 1.60 [place] [address] [address] Mar, Encounter for immunization Z 23 and Gastritis without bleeding, unspecified chronicity, unspecified gastritis type K29.70 [place] [address] [place] [id number] [address] [place] [address] Mar, Bipolar 1 disorder, mixed F3 1.60 and Grief F43.20 [place] [address] [address] Mar, Gastritis without bleeding, unspecified chronicity, unspecified gastritis type K29.70 [place] [address] [address] Mar, Bipolar 1 disorder, mixed F3 1.60 [facility] [address] [place] [id number] [address] [place] [address] Mar, Gastritis without bleeding, unspecified chronicity, unspecified gastritis type K29.70 [facility] [address] [place] [id number] [address] [place] [address] Mar, [place] [address] [place] [address] Feb, Bipolar 1 disorder, mixed F3 1.60 [place] [address] [place] [id number] [place] [address] Feb, Bipolar 1 disorder, mixed F3 1.60 and Grief F43.20 [place] [address] [place] [id number] [place] [address] Feb, Gastritis without bleeding, unspecified chronicity, unspecified gastritis type K29.70 [place] [address] [address] Feb, Bipolar 1 disorder, mixed F3 1.60 [facility] [address] [place] [id number] [place] [address] 09 Feb, 2016 Gastroesophageal reflux dise ase, esophagitis presence not specified K21.9 [facility] [address] [place] [id number] [address] [place] [address] Jan, Bipolar 1 disorder, mixed F3 1.60 [facility] [address] [place] [id number] [address] [place] [address] Jan, Bipolar 1 disorder, mixed F3 1.60 and Unsteady gait R26.81 [place] [address] [place] [id number] [place] [address] Jan, Bipolar 1 disorder, mixed F3 1.60 [facility] [address] [place] [id number] [address] [place] [address] Jan, Bipolar 1 disorder, mixed F3 1.60 and Other fdc (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 Z79.899 [facility] [address] [facility] [id number] [address] [place] [address] Jan, Bipolar 1 disorder, mixed F3 1.60 [facility] [address] [facility] [id number] [address] [place] [address] Jan, Bipolar 1 disorder, mixed F3 1.60 [facility] [address] [place] [id number] [address] [place] [address] Jan, Bipolar 1 disorder, mixed F3 1.60 ; Grief F43.20 and Other parts counterman (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 Z79.899 [facility] [address] [facility] [id number] [address] [place] [address] Jan, Bipolar 1 disorder, mixed F3 1.60 [place] [address] [place] [id number] [address] [place] [address] Dec, [place] [address] [place] [id number] [place] [address] Dec, Bipolar 1 disorder, mixed F3 1.60 ; Vitamin D deficiency, unspecified E55.9 ; H/O allergic rhinitis Z87.09 ; Other chronic pain G89.29 and Dorsalgia, unspecified M54.9 [place] [address] [place] [id number] [address] [place] [address] Dec, [place] [address] [place] [id number] [address] [place] [address] Dec, Bipolar 1 disorder, mixed F3 1.60 [facility] [address] [place] [id number] [address] [place] [address] Dec, Major depressive disorder, r ecurrent episode, moderate F33.1 [place] [address] [place] [id number] [address] [place] [address] Dec, Major depressive disorder, r ecurrent episode, moderate F33.1 [place] [address] [place] [id number] [address] [place] [address] Nov, [place] [address] [facility] [id number] [address] [place] [address] Nov, Bipolar 1 disorder, mixed F3 1.60 [place] [address] [facility] [id number] [address] [place] [address] Nov, Major depressive disorder, r ecurrent episode, moderate F33.1 [place] [address] [facility] [id number] [address] [place] [address] Nov, Cervicalgia M54.2 ; Arthralg ia of hip, unspecified laterality M25.559 ; Allergic rhinitis J30.9 and Hormone replacement therapy Z79.890 [facility] [address] [facility] [id number] [address] [place] [address] Nov, Other seasonal allergic rhin itis J30.2 [place] [address] [facility] [id number] [address] [place] [address] October, Major depressive disorder, r ecurrent episode, moderate F33.1 [place] [address] [facility] [id number] [address] [place] [address] October, Major depressive disorder, r ecurrent episode, moderate F33.1 and Arthralgia of hip, unspecified laterality M25.559 [place] [address] [facility] [id number] [address] [place] [address] October, Grief F43.20 ; Hypertension I10 ; Hyperlipidemia, unspecified hyperlipidemia type E78.5 ; Other chronic pain G89.29 and Allergic rhinitis, unspecified allergic rhinitis type J30.9 [place] [address] [facility] [id number] [address] [place] [address] October, Major depressive disorder, r ecurrent episode, moderate F33.1 [place] [address] [facility] [id number] [address] [place] [address] Sep, Major depressive disorder, r ecurrent episode, moderate F33.1 [place] [address] [place] [id number] [address] [place] [address] Sep, [facility] [id number] [place] [address] Sep, Major depressive disorder, r ecurrent episode, moderate F33.1 [place] [id number] [place] [address] Sep, Grief F43.20 [place] [address] [address] Aug, Major depressive disorder, r ecurrent episode, moderate F33.1 [place] [address] [address] Aug, Bipolar 1 disorder, mixed F3 1.60 [place] [address] [address] Aug, Allergic rhinitis J30.9 ; Ce rvicalgia M54.2 and Low back pain M54.5 [place] [address] [address] Aug, Major depressive disorder, r ecurrent episode, moderate F33.1 [facility] [address] [address] Aug, Sinusitis J32.9 and Tobacco 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 [place] [address] [address] Aug, [facility] [address] [address] Aug, Depressive disorder, not els ewhere classified F32.9 ; Hormone replacement therapy Z79.[address] scan, head R93.0 [place] [address] [address] Aug, Major depressive disorder, r ecurrent episode, moderate F33.1 [facility] [id number] [place] [address] Jul, Major depressive disorder, r ecurrent episode, moderate F33.1 [facility] [address] [id number] [address] [place] [address] Jul, Abdominal pain R10.9 and Hyp ertension I10 [facility] [address] [id number] [address] [place] [address] Jul, [facility] [address] [id number] [address] [place] [address] Jul, Major depressive disorder, r ecurrent episode, moderate F33.1 [facility] [address] [id number] [address] [place] [address] Jul, [facility] [address] [id number] [address] [place] [address] Jul, [facility] [address] [facility] [id number] [address] [place] [address] Jun, [facility] [address] [id number] [address] [place] [address] Jun, Depressive disorder, not els ewhere classified F32.9 [facility] [address] [facility] [id number] [address] [place] [address] Jun, [facility] [address] [id number] [address] [place] [address] Jun, [facility] [address] [facility] [id number] [address] [place] [address] Jun, Arthralgia of hip, unspecifi ed laterality M25.559 ; Bruising, spontaneous R23.[address] sweats R[address] [facility] [address] [id number] [address] [place] [address] Jun, [facility] [address] [facility] [id number] [address] [place] [address] Jun, [facility] [address] [facility] [id number] [address] [place] [address] May, [facility] [address] [id number] [address] [place] [address] May, Myalgia M79.1 and Screening, lipid Z13.220 [facility] [address] [facility] [id number] [address] [place] [address] Apr, Status post cervical spinal fusion Z98.1 ; Fibromyalgia M79.7 and Unsteady gait R26.81 [facility] [address] [id number] [address] [place] [address] Nov, [facility] [address] [id number] [address] [place] [address] Nov, [facility] [address] [id number] [address] [place] [address] October, [facility] [address] [facility] [id number] [address] [place] [address] October, [facility] [address] [facility] [id number] [address] [place] [address] October, [facility] [address] [facility] [id number] [address] [place] [address] October, [facility] [address] [facility] [id number] [address] [place] [address] October, [facility] [address] [facility] [id number] [address] [place] [address] October, Dysuria 788.1 ; Nausea 787.0 2 and Urinary tract infection 599.0 [facility] [address] [id number] [address] [place] [address] Sep, [facility] [address] [facility] [id number] [address] [place] [address] Sep, [facility] [address] [facility] [id number] [address] [place] [address] Aug, [facility] [address] [facility] [id number] [address] [place] [address] 25 Aug, 2014 [facility] [address] [id number] [facility] [place] [address] 24 Aug, 2014 [facility] [address] [id number] [facility] [place] [address] 24 Aug, 2014 [facility] [address] [id number] [address] [place] [address], [place] [address] 23 Aug, 2014 [facility] [address] [id number] [address] [place] [address], [place] [id number] 19 Aug, 2014 [facility] [address] [id number] [address] [place] [address], [place] [id number] 19 Aug, 2014 [facility] [address] [id number] [address] [place] [address], [place] [id number] 19 Aug, 2014 [facility] [address] [id number] [address] [place] [address], [place] [id number] 19 Aug, 2014 [facility] [address] [id number] [address] [place] [address], [place] [id number] 18 Aug, 2014 [facility] [address] [id number] [address] [place] [address], [place] [id number] 18 Aug, 2014 [facility] [address] [id number] [address] [place] [address], [place] [id number] 13 Aug, 2014 [facility] [address] [id number] [address] [place] [address], [place] [id number] 13 Aug, 2014 [facility] [address] [id number] [address] [place] [address], [place] [id number] 11 Aug, 2014 [facility] [address] [id number] [address] [place] [address], [place] [id number] 11 Aug, 2014 [facility] [address] [id number] [address] [place] [address], [place] [id number] 06 Aug, 2014 [facility] [address] [id number] [address] [place] [address], [place] [id number] 06 Aug, 2014 [facility] [address] [id number] [address] [place] [address], [place] [id number] 05 Aug, 2014 [facility] [address] [id number] [address] [place] [address], [place] [id number] 05 Aug, 2014 [facility] [address] [id number] [address] [place] [address], [place] [id number] 04 Aug, 2014 [facility] [address] [id number] [address] [place] [address], [place] [id number] Aug, 2014 [facility] [address] [id number] [address] [place] [address], [place] [id number] Aug, [facility] [address] [id number] [address] [place] [address], [place] [id number] Jul, 2014 [facility] [address] [id number] [address] [place] [address], [place] [id number] Jul, 2014 [facility] [address] [id number] [address] [place] [address], [place] [id number] Jul, 2014 [facility] [address] [id number] [address] [place] [address], [place] [id number] Jul, [facility] [address] [id number] [address] [place] [address], [place] [id number] Jul, [facility] [address] [id number] [address] [place] [address], [place] [id number] Jul, [facility] [address] [id number] [address] [place] [address], [place] [id number] Jul, 2014 [facility] [address] [id number] [address] [place] [address], [place] [id number] Jul, 2014 [facility] [address] [id number] [address] [place] [address], [place] [id number] Jul, 2014 [facility] [address] [id number] [address] [place] [id number] Jul, 2014 [facility] [address] [id number] [address] [place] [id number] Jul, 2014 [facility] [address] [id number] [address] [place] [address], [place] [address] Jul, [facility] [address] [id number] [address] [place] [address], [place] [address] Jul, [facility] [address] [id number] [address] [place] [address], [place] [address] Jul, [facility] [address] [id number] [address] [place] [address] Jun, [facility] [address] [id number] [address] [place] [address], [place] [address] Jun, [facility] [address] [id number] [address] [place] [address], [place] [address] Jun, [facility] [address] [id number] [address] [place] [address], [place] [address] Jun, [facility] [address] [id number] [address] [place] [address], [place] [address] Jun, [facility] [address] [id number] [address] [place] [address], [place] [address] Jun, [facility] [address] [id number] [address] [place] [address], [place] [address] May, [facility] [address] [id number] [address] [place] [address], [place] [address] May, [facility] [address] [id number] [address] [place] [address], [place] [address] May, [facility] [address] [id number] [address] [place] [address], [place] [address] May, [facility] [address] [id number] [address] [place] [address], [place] [address] May, [facility] [address] [id number] [address] [place] [address], [place] [address] May, [facility] [address] [id number] [address] [place] [address], [place] [address] Apr, [facility] [address] [id number] [address] [place] [address], [place] [address] Apr, [facility] [address] [id number] [address] [place] [address], [place] [address] Apr, [facility] [address] [id number] [address] [place] [address], [place] [address] Apr, [facility] [address] [id number] [address] [place] [address], [place] [address] Apr, [facility] [address] [id number] [address] [place] [address], [place] [address] Apr, [facility] [address] [id number] [address] [place] [address], [place] [address] Mar, [facility] [address] [id number] [address] [place] [address], [place] [address] Mar, [facility] [address] [id number] [address] [place] [address], [place] [address] Mar, [facility] [address] [id number] [address] [place] [address], [place] [address] Mar, [facility] [address] [id number] [address] [place] [address], [place] [address] Mar, [facility] [address] [id number] [address] [place] [address], [place] [address] Mar, [facility] [address] [id number] [address] [place] [address] Mar, [facility] [address] [id number] [address] [place] [address], [place] [address] Mar, [facility] [address] [id number] [address] [place] [address], [place] [address] Mar, [facility] [address] [id number] [address] [place] [address], [place] [address] Mar, [facility] [address] [id number] [address] [place] [address], [place] [address] Mar, [facility] [address] [id number] [address] [place] [address], [place] [address] Mar, [facility] [address] [id number] [address] [place] [address], [place] [address] 30 Feb, 2014 [facility] [address] [id number] [address] [place] [address], [place] [address] Feb, [facility] [address] [id number] [address] [place] [address], [place] [address] Feb, [facility] [address] [id number] [address] [place] [address], [place] [address] Feb, [facility] [address] [id number] [address] [place] [address], [place] [address] Feb, [facility] [address] [id number] [address] [place] [address], [place] [address] Feb, [facility] [address] [id number] [address] [place] [address], [place] [address] Feb, [facility] [address] [id number] [address] [place] [address], [place] [address] Jan, [facility] [address] [id number] [address] [place] [address], [place] [address] Jan, [facility] [address] [id number] [address] [place] [address], [place] [address] Jan, [facility] [address] [id number] [address] [place] [address], [place] [address] Dec, [facility] [address] [id number] [address] [place] [address], [place] [address] Dec, [facility] [address] [id number] [address] [place] [address], [place] [address] Dec, [facility] [address] [id number] [address] [place] [address], [place] [address] Dec, [facility] [address] [id number] [address] [place] [address], [place] [address] Sep, [facility] [address] [id number] [address] [place] [address], [place] [address] Sep, [facility] [address] [id number] [address] [place] [address], [place] [address] Sep, [facility] [address] [id number] [address] [place] [address], [place] [address] Sep, [facility] [address] [id number] [address] [place] [address], [place] [address] Sep, [facility] [address] [id number] [address] [place] [address], [place] [address] Sep, [facility] [address] [id number] [address] [place] [address], [place] [address] Sep, [facility] [address] [id number] [address] [place] [address], [place] [address] Sep, [facility] [address] [id number] [address] [place] [address], [place] [address] Aug, [facility] [address] [id number] [address] [place] [address], [place] [address] Aug, [facility] [address] [id number] [address] [place] [address], [place] [address] May, [facility] [address] [id number] [address] [place] [address], [place] [address] May, [facility] [address] [id number] [address] [place] [address], [place] [address] Apr, [facility] [address] [id number] [address] [place] [address], [place] [address] Apr, [facility] [address] [id number] [address] [place] [address], [place] [address] Apr, [facility] [address] [id number] [address] [place] [address], [place] [address] Apr, [facility] [address] [id number] [address] [place] [address], [place] [address] Apr, [facility] [address] [id number] [address] [place] [address], [place] [address] Apr, [facility] [address] [id number] [address] [place] [address], [place] [address] 18 May, 2012 [facility] [address] [id number] [address] [place] [address], [place] [address] 18 May, 2012 [facility] [address] [id number] [address] [place] [address], [place] [address] 15 May, 2012 [facility] [address] [id number] [address] [place] [address], [place] [address] 15 May, 2012 [facility] [address] [id number] [address] [place] [address], [place] [address] 13 May, 2012 [facility] [address] [id number] [address] [place] [address], [place] [address] 13 May, 2012 [facility] [address] [id number] [address] [place] [address], [place] [address] 13 Apr, 2012 [facility] [address] [id number] [address] [place] [address], [place] [address] 13 Apr, 2012 [facility] [address] [id number] [address] [place] [address], [place] [address] Apr, [facility] [address] [id number] [address] [place] [address], [place] [address] Apr, [facility] [address] [id number] [address] [place] [address], [place] [address] Apr, [facility] [address] [id number] [address] [place] [address], [place] [address] 08 Apr, 2012 [facility] [address] [id number] [address] [place] [address], [place] [address] Apr, [facility] [address] [id number] [address] [place] [address], [place] [address] Apr, [facility] [address] [id number] [address] [place] [address], [place] [address] Apr, [facility] [address] [id number] [address] [place] [address], [place] [address] Apr, [facility] [address] [id number] [address] [place] [address], [place] [address] Mar, [facility] [address] [id number] [address] [place] [address], [place] [address] Mar, [facility] [address] [id number] [address] [place] [address] Mar, [facility] [address] [id number] [address] [place] [address], [place] [address] Mar, [facility] [address] [id number] [address] [place] [address] Mar, [facility] [address] [id number] [address] [place] [address], [place] [address] Mar, [facility] [address] [id number] [address] [place] [address] Mar, [facility] [address] [id number] [address] [place] [address] Mar, [facility] [address] [id number] [address] [place] [address] Mar, [facility] [address] [id number] [address] [place] [address], [place] [address] 25 Feb, 2012 [facility] [address] [id number] [address] [place] [address] 16 Sep2011 [facility] [address] [id number] [address] [place] [address] 11 Feb, 2012 [facility] [address] [id number] [address] [place] [address], [place] [address] Jan, [facility] [address] [id number] [address] [place] [address], [place] [address] Jan, [facility] [address] [id number] [address] [place] [address], [place] [address] Jan, [facility] [address] [id number] [address] [place] [address], [place] [address] Jan, [facility] [address] [id number] [address] [place] [address], [place] [address] Jan, [facility] [address] [id number] [address] [place] [address], [place] [address] Jan, [facility] [address] [id number] [address] [place] [address], [place] [address] 16 Jan, 2012 [facility] [address] [id number] [address] [place] [address], [place] [address] Jan, [facility] [address] [id number] [address] [place] [address], [place] [address] Jan, [facility] [address] [id number] [address] [place] [address], [place] [address] Jan, [facility] [address] [id number] [address] [place] [address], [place] [address] Dec, [facility] [address] [id number] [address] [place] [address], [place] [address] Dec, [facility] [address] [id number] [address] [place] [address], [place] [address] Dec, [facility] [address] [id number] [address] [place] [address], [place] [address] Dec, [facility] [address] [id number] [address] [place] [address], [place] [address] Nov, [facility] [address] [id number] [address] [place] [address], [place] [address] [address], [address] [facility] [address] [id number] [address] [place] [address] Nov, [facility] [address] [id number] [address] [place] [address] October, [facility] [address] [id number] [address] [place] [address] October, [facility] [address] [id number] [address] [place] [address] October, [facility] [address] [id number] [address] [place] [address], [place] [address] October, [facility] [address] [id number] [address] [place] [address] October, [facility] [address] [id number] [address] [place] [address] October, [facility] [address] [id number] [address] [place] [address] Aug, [facility] [address] [id number] [address] [place] [address] Mar, [facility] [address] [id number] [address] [place] [address] Nov, [facility] [address] [id number] [address] [place] [address] May, [facility] [address] [id number] [address] [place] [address] May, [facility] [address] [id number] [address] [place] [address] Apr, [facility] [address] [id number] [address] [place] [address] Mar, [facility] [address] [id number] [address] [place] [address] Mar, IMMUNIZATIONS No Known Immunizations SOCIAL HISTORY Never Assessed REASON FOR VISIT PLAN OF CARE VITAL SIGNS Height 64 in 2014-09-02 Weight 147.06 lbs 2014-09-02 Temperature 98 degrees Fahrenheit 2014-09-02 Heart Rate 84 bpm 2014-09-02 Respiratory Rate 18 2014-09-02 Blood pressure systolic 122 mmHg 2014-09-02 Blood pressure diastolic 74 mmHg 2014-09-02 MEDICATIONS Unknown Medications RESULTS No Results PROCEDURES [...]
--- OUTSIDE RECORDS SUMMARY | 2019-06-19 05:15 | XMS REPORT ---
Author Author Sydnie HANCOCK [facility] Address [address] [place] [address] Care Team Providers Care House Designer Name Role Phone NAHOMY HANCOCK Unavailable PROBLEMS Type Condition ICD9-CM Code LIE98-EA Code Onset Dates Condition S tatus SNOMED Code Problem Age-related osteoporosis without current pathological fracture M81.0 Active 09535803 Problem Sensorineural hearing loss (SNHL) of both ears H90 .3 Active 28[address]56 Problem Ab[address] CT scan, head R93.0 Active 875810739 Problem Arthralgia of hip, unspecified laterality M25.559 Active 09210749 Problem Bruising, spontaneous R23.3 Active 953503450 Problem Hypertension I10 Active 4234389 3 Problem Night sweats R61 Active 3051715 0 Problem Imbalance R26.89 Active 725654761 Problem Hammer toe of right foot M20.41 Activ e 287122073 Problem Hormone replacement therapy Z79.890 Ac tive 159582386 Problem Bipolar 1 disorder, mixed F31.60 Acti ve 12408574 Problem Gastritis without bleeding, unspecified chronicity, unspecified gastritis type K29.70 Active 619273112 Problem Ataxia R27.0 Active 85273630 Problem Hearing loss, unspecified laterality H91.90 Active 76889077 Problem History of colon polyps Z86.010 Active 483292203 Problem Allergic rhinitis J30.9 Active 61 605753 Problem Hematuria, unspecified type R31.9 Ac tive 90214657 Problem Generalized anxiety disorder F41.1 A ctive 32774350 Problem Major depressive disorder, recurrent episode, moderate F33.1 Active 317831874 Problem Fibromyalgia M79.7 Active 1543490 7 Problem Bladder spasm N32.89 Active 408856 006 Problem Tobacco use disorder F17.200 Active 852074130 Problem Other chronic pain G89.29 Active 8 9810747 Problem Post menopausal syndrome N95.1 Activ e 386224511 Problem Grief F43.20 Active 46766174 Problem Hyperlipidemia, unspecified hyperlipidemia type E7 8.5 Active 53279260 Problem Acute left-sided low back pain with left-sided sciatica M54.42 Active 704235859 Problem Sciatica of left side M54.32 Active 69218584 Problem Plantar wart of right foot B07.0 Act mitchell [id number] Problem Slow transit constipation K59.01 Acti ve 01797907 ALLERGIES No Information ENCOUNTERS Encounter Location Date Diagnosis [facility] [address] [place] [id number] [place] [address] Jan, [facility] [address] [facility] [id number] [address] [place] [address] Dec, [facility] [address] [id number] [place] [address] Dec, [facility] [address] [id number] [place] [address] Dec, [facility] [id number] [place] [address] Nov, Bipolar 1 disorder, mixed F3 1.60 [facility] [address] [id number] [place] [address] Nov, Bipolar 1 disorder, mixed F3 1.60 ; Generalized anxiety disorder F41.1 ; Tobacco use disorder F17.200 and Other oysterman (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 Z79.899 [facility] [address] [id number] [place] [address] Nov, [facility] [address] [id number] [place] [address] Nov, Bipolar 1 disorder, mixed F3 1.60 [facility] [address] [id number] [place] [address] October, Bipolar 1 disorder, mixed F3 1.60 [facility] [id number] [place] [address] October, Bipolar 1 disorder, mixed F3 1.60 [place] [address] [place] [address] October, [place] [address] [address] October, Bipolar 1 disorder, mixed F3 1.60 ; Generalized anxiety disorder F41.1 and Tobacco use disorder F17.200 [place] [address] [address] Sep, [place] [address] [place] [id number] [place] [address] Sep, Encounter for Medicare annua wellness exam Z00.00 ; Major depressive disorder, recurrent episode, moderate F33.1 ; Allergic rhinitis J30.9 ; Bipolar 1 disorder, mixed F31.60 ; Fibromyalgia M79.7 ; Hyperlipidemia, unspecified hyperlipidemia type E78.5 ; Hormone replacement therapy Z79.890 ; Encounter for screening for lung cancer Z12.2 and Tobacco use disorder F17.200 [place] [address] [place] [id number] [place] [address] Sep, Bipolar 1 disorder, mixed F3 1.60 [place] [address] [address] Sep, Other chronic pain G89.29 ; Hyperlipidemia, unspecified hyperlipidemia type E78.5 ; Breast cancer screening Z12.31 and Post menopausal syndrome N95.1 [place] [address] [place] [address] Sep, Bipolar 1 disorder, mixed F3 1.60 [place] [address] [place] [id number] [place] [address] Sep, Bipolar 1 disorder, mixed F3 1.60 ; Generalized anxiety disorder F41.1 and Tobacco use disorder F17.200 [place] [address] [place] [id number] [place] [address] Sep, Gastritis without bleeding, unspecified chronicity, unspecified gastritis type K29.70 [place] [address] [facility] [id number] [address] [place] [address] 08 Sep, 2018 Exercise counseling Z71.82 [place] [address] [facility] [id number] [address] [place] [address] Aug, Exercise counseling Z71.82 [place] [address] [place] [id number] [place] [address] Aug, Bipolar 1 disorder, mixed F3 1.60 [place] [address] [facility] [id number] [address] [place] [address] Aug, Exercise counseling Z71.82 [place] [address] [place] [id number] [place] [address] Aug, Bipolar 1 disorder, mixed F3 1.60 [place] [address] [place] [id number] [place] [address] Aug, Gastritis without bleeding, unspecified chronicity, unspecified gastritis type K29.70 ; Tobacco abuse Z72.0 ; Generalized anxiety disorder F41.1 and Weight gain R63.5 [place] [address] [facility] [id number] [address] [place] [address] Aug, Bipolar 1 disorder, mixed F3 1.60 ; Generalized anxiety disorder F41.1 and Tobacco use disorder F17.200 [place] [address] [place] [id number] [place] [address] Jul, Bipolar 1 disorder, mixed F3 1.60 [place] [address] [facility] [id number] [address] [place] [address] Jul, [place] [address] [facility] [id number] [address] [place] [address] Jul, Bipolar 1 disorder, mixed F3 1.60 [place] [address] [facility] [id number] [address] [place] [address] 11 Jul, 2018 Allergic rhinitis J30.9 ; Ma darion depressive disorder, recurrent episode, moderate F33.1 and Tobacco 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 [facility] [address] [id number] [address] [place] [address] Jun, [facility] [address] [id number] [address] [place] [address] Jun, [facility] [address] [facility] [id number] [address] [place] [address] Jun, Bipolar 1 disorder, mixed F3 1.60 [facility] [address] [facility] [id number] [address] [place] [address] Jun, Bipolar 1 disorder, mixed F3 1.60 [facility] [address] [id number] [address] [place] [address] Jun, Bipolar 1 disorder, mixed F3 1.60 [facility] [address] [facility] [id number] [address] [place] [address] Jun, Generalized anxiety disorder F41.1 ; Tobacco abuse Z72.0 and Major depressive disorder, recurrent episode, moderate F33.1 [facility] [address] [facility] [id number] [address] [place] [address] May, Bipolar 1 disorder, mixed F3 1.60 [facility] [address] [facility] [id number] [address] [place] [address] May, Bipolar 1 disorder, mixed F3 1.60 and Generalized anxiety disorder F41.1 [facility] [address] [facility] [id number] [address] [place] [address] May, Bipolar 1 disorder, mixed F3 1.60 [facility] [address] [facility] [id number] [address] [place] [address] May, Allergic rhinitis J30.9 [facility] [address] [facility] [id number] [address] [place] [address] May, Bipolar 1 disorder, mixed F3 1.60 [facility] [address] [facility] [id number] [address] [place] [address] May, [facility] [id number] [place] [address] Apr, Allergic rhinitis J30.9 ; Dy sfunction of both eustachian tubes H69.83 ; History of bladder surgery Z98.890 and Cervicalgia M54.2 [facility] [id number] [place] [address] Mar, Bipolar 1 disorder, mixed F3 1.60 [place] [address] [address] Mar, [place] [address] [address] Mar, Slow transit constipation K5 9.01 ; Encounter for immunization Z23 and Generalized anxiety disorder F41.1 [place] [address] [place] [id number] [place] [address] 27 Feb, 2018 Bipolar 1 disorder, mixed F3 1.60 [place] [address] [place] [address] 26 Feb, 2018 Allergic rhinitis J30.9 [facility] [id number] [place] [address] 24 Feb, 2018 Bipolar 1 disorder, mixed F3 1.60 [place] [address] [place] [id number] [place] [address] 20 Feb, 2018 Bipolar 1 disorder, mixed F3 1.60 and Generalized anxiety disorder F41.1 [place] [address] [place] [id number] [place] [address] 13 Feb, 2018 Bipolar 1 disorder, mixed F3 1.60 [place] [address] [place] [id number] [place] [address] 11 Feb, 2018 Allergic rhinitis J30.9 [facility] [id number] [place] [address] 05 Feb, 2018 [facility] [id number] [place] [address] Jan, Bipolar 1 disorder, mixed F3 1.60 [facility] [id number] [place] [address] Jan, Low back pain M54.5 ; Hyperl ipidemia, unspecified hyperlipidemia type E78.5 and Bipolar 1 disorder, mixed F31.60 [facility] [id number] [place] [address] Jan, Bipolar 1 disorder, mixed F3 1.60 [facility] [id number] [place], [place] [address] Jan, Bipolar 1 disorder, mixed F3 1.60 [facility] [id number] [place] [address] Jan, Bipolar 1 disorder, mixed F3 1.60 [facility] [id number] [place] [address] Jan, Bipolar 1 disorder, mixed F3 1.60 [facility] [id number] [place] [address] Dec, Bipolar 1 disorder, mixed F3 1.60 ; Generalized anxiety disorder F41.1 and Other oysterman (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 Z79.899 [facility] [id number] [place] [address] Dec, Other correction (current) dr ug therapy Z79.899 [facility] [id number] [place] [address] Dec, Bipolar 1 disorder, mixed F3 1.60 [facility] [address] [id number] [place] [address] Dec, Bipolar 1 disorder, mixed F3 1.60 [facility] [id number] [place], [place] [address] Nov, Bipolar 1 disorder, mixed F3 1.60 [facility] [id number] [place] [address] Nov, Bipolar 1 disorder, mixed F3 1.60 [place] [address] [place] [id number] [place] [address] 13 Nov, 2017 Bipolar 1 disorder, mixed F3 1.60 [place] [address] [facility] [id number] [address] [place] [address] Nov, Allergic rhinitis J30.9 [facility] [address] [place] [address] Nov, Allergic rhinitis J30.9 [place] [address] [place] [id number] [place] [address] Nov, [place] [address] [address] Nov, Bipolar 1 disorder, mixed F3 1.60 [place] [address] [address] Nov, Fibromyalgia M79.7 and Aller gic rhinitis J30.9 [place] [address] [place] [address] October, Bipolar 1 disorder, mixed F3 1.60 [facility] [place] [address] [address] October, Acute nasopharyngitis J00 [facility] [place] [address] [address] October, Bitten or stung by nonvenomo us insect and other nonvenomous arthropods, initial encounter W57.XXXA and Insect bite (nonvenomous) of abdominal wall, initial encounter S30.861A [place] [address] [address] October, Insect bite (nonvenomous) of abdominal wall, initial encounter S30.861A ; Bitten or stung by nonvenomous insect and other nonvenomous arthropods, initial encounter W57.XXXA ; Allergic rhinitis J30.9 and Low back pain M54.5 [place] [address] [id number] [address] [place] [address] October, Bipolar 1 disorder, mixed F3 1.60 [facility] [address] [id number] [address] [place] [address] October, [facility] [address] [id number] [address] [place] [address] October, [facility] [address] [id number] [address] [place] [address] October, Bipolar 1 disorder, mixed F3 1.60 [facility] [address] [id number] [address] [place] [address] Sep, Bipolar 1 disorder, mixed F3 1.60 [facility] [address] [facility] [id number] [address] [place] [address] Sep, Other chronic pain G89.29 [facility] [address] [id number] [address] [place] [address] Sep, [facility] [address] [id number] [address] [place] [address] Sep, Bipolar 1 disorder, mixed F3 1.60 [facility] [address] [facility] [id number] [address] [place] [address] Sep, Allergic rhinitis J30.9 and Sciatica of left side M54.32 [facility] [address] [facility] [id number] [address] [place] [address] Sep, Bipolar 1 disorder, mixed F3 1.60 [facility] [address] [id number] [address] [place] [address] Sep, Bipolar 1 disorder, mixed F3 1.60 and Generalized anxiety disorder F41.1 [facility] [address] [facility] [id number] [address] [place] [address] Aug, [facility] [address] [facility] [id number] [address] [place] [address] Aug, Bipolar 1 disorder, mixed F3 1.60 [facility] [address] [id number] [address] [place] [address] Aug, Bipolar 1 disorder, mixed F3 1.60 [facility] [address] [facility] [id number] [address] [place] [address] Aug, [facility] [address] [facility] [id number] [address] [place] [address] Aug, Generalized anxiety disorder F41.1 [facility] [address] [facility] [id number] [address] [place] [address] Aug, Bipolar 1 disorder, mixed F3 1.60 [facility] [address] [facility] [id number] [address] [place] [address] Aug, Plantar wart of right foot B 07.0 [facility] [address] [facility] [id number] [address] [place] [address] Aug, Bipolar 1 disorder, mixed F3 1.60 [facility] [address] [facility] [id number] [address] [place] [address] Jul, Bipolar 1 disorder, mixed F3 1.60 [facility] [address] [facility] [id number] [address] [place] [address] Jul, [facility] [address] [facility] [id number] [address] [place] [address] 14 Jul, 2017 Bipolar 1 disorder, mixed F3 1.60 [facility] [address] [facility] [id number] [address] [place] [address] Jul, Generalized anxiety disorder F41.1 [facility] [address] [facility] [id number] [address] [place] [address] Jul, Bipolar 1 disorder, mixed F3 1.60 [facility] [address] [facility] [id number] [address] [place] [address] 07 Jul, 2017 Acute left-sided low back pa in with left-sided sciatica M54.42 [facility] [address] [address] Jul, Coccydynia M53.3 [place] [address] [address] Jun, Bipolar 1 disorder, mixed F3 1.60 [facility] [address] [address] Jun, Acute nasopharyngitis J00 [place] [address] [address] Jun, Bipolar 1 disorder, mixed F3 1.60 [place] [address] [address] Jun, Fibromyalgia M79.7 [place] [address] [address] Jun, Bipolar 1 disorder, mixed F3 1.60 [place] [address] [address] Jun, Fibromyalgia M79.7 and Bipol ar 1 disorder, mixed F31.60 [place] [address] [address] May, Bipolar 1 disorder, mixed F3 1.60 ; Generalized anxiety disorder F41.1 and Other oysterman (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 Z79.899 [place] [address] [address] May, Bipolar 1 disorder, mixed F3 1.60 [facility] [address] [address] May, Cough R05 and Body aches R52 [facility] [address] [address] May, Bladder spasm N32.89 and Acu te cystitis without hematuria N30.00 [place] [address] [address] 07 May, 2017 Bipolar 1 disorder, mixed F3 1.60 [facility] [address] [place] [address] 30 Apr, 2017 [facility] [address] Apr, Major depressive disorder, r ecurrent episode, moderate F33.1 and Encounter for immunization Z23 [facility] [address] [place] [address] Apr, Bipolar 1 disorder, mixed F3 1.60 [facility] [address] Apr, Bipolar 1 disorder, mixed F3 1.60 [place] [address] 16 Apr, 2017 Bipolar 1 disorder, mixed F3 1.60 [facility] [address] [address] Apr, Yeast vaginitis B37.3 [facility] [address] [address] 09 Apr, 2017 Bipolar 1 disorder, mixed F3 1.60 [facility] [address] [place] [id number] [place] [address] 07 Apr, 2017 Cellulitis L03[address] for immunization Z23 [facility] [address] [place] [id number] [address] [place] [address] Apr, Bipolar 1 disorder, mixed F3 1.60 [facility] [address] [address] Mar, Bipolar 1 disorder, mixed F3 1.60 [facility] [address] [address] Mar, Bipolar 1 disorder, mixed F3 1.60 [facility] [address] [address] Mar, Imbalance R26.89 and Encount er for immunization Z23 [place] [address] [place] [address] Mar, Generalized anxiety disorder F41.1 [place] [address] [place] [id number] [place] [address] Mar, Bipolar 1 disorder, mixed F3 1.60 [place] [address] [address] [place] [id number] [address] [place] [id number] Mar, Generalized anxiety disorder F41.1 [place] [address] [address] [place] [id number] [address] [place] [id number] Mar, Bipolar 1 disorder, mixed F3 1.60 [place] [address] [address] [place] [id number] [address] [place] [id number] Mar, Bipolar 1 disorder, mixed F3 1.60 [place] [address] [address] [place] [id number] [address] [place] [phone] Feb, Bipolar 1 disorder, mixed F3 1.60 [place] [address] [id number] Feb, Bipolar 1 disorder, mixed F3 1.60 and Generalized anxiety disorder F41.1 [place] [address] [address] [place] [id number] [address] [place] [id number] Feb, Gastritis without bleeding, unspecified chronicity, unspecified gastritis type K29.70 ; Hammer toe of right foot M20.41 and Other viral warts B07.8 [place] [address] [address] [place] [id number] [address] [place] [id number] Feb, Bipolar 1 disorder, mixed F3 1.60 [place] [address] [address] [place] [id number] [address] [place] [id number] Feb, Bipolar 1 disorder, mixed F3 1.60 [place] [address] [address] [place] [id number] [address] [place] [id number] 05 Feb, 2017 Bipolar 1 disorder, mixed F3 1.60 [facility] [address] [facility] [id number] [address] [place] [id number] Jan, Encounter for screening mamm ogram for breast cancer Z12.31 ; Other viral warts B07.8 and Allergic rhinitis J30.9 [facility] [address] [facility] [id number] [address] [place] [id number] Jan, Bipolar 1 disorder, mixed F3 1.60 [facility] [address] [facility] [id number] [address] [place] [id number] Jan, Bipolar 1 disorder, mixed F3 1.60 [place] [address] [address] [facility] [id number] [address] [place] [id number] Jan, [facility] [address] [facility] [id number] [address] [place] [address] Jan, Bipolar 1 disorder, mixed F3 1.60 [place] [address] [address] [facility] [id number] [address] [place] [id number] Jan, Bipolar 1 disorder, mixed F3 1.60 [facility] [address] [facility] [id number] [address] [place] [id number] Jan, Allergic rhinitis J30.9 ; He maturia R31.9 and Colon cancer screening Z12.11 [facility] [address] [facility] [id number] [address] [place] [id number] Dec, Bipolar 1 disorder, mixed F3 1.60 [facility] [address] [facility] [id number] [address] [place] [address] Dec, Bipolar 1 disorder, mixed F3 1.60 ; Generalized anxiety disorder F41.1 and Other correction (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 Z79.899 [facility] [address] [facility] [id number] [address] [place] [id number] Dec, Bipolar 1 disorder, mixed F3 1.60 [facility] [address] [facility] [facility] [id number] [address] [place] [address] Dec, Bipolar 1 disorder, mixed F3 1.60 [facility] [address] [facility] [id number] [address] [place] [address] Dec, Bipolar 1 disorder, mixed F3 1.60 [facility] [address] [facility] [id number] [address] [place] [address] Dec, Low back pain M54.5 and Recu rrent urinary tract infection N39.0 [facility] [address] [facility] [id number] [address] [place] [address] Nov, Bipolar 1 disorder, mixed F3 1.60 [facility] [address] [facility] [id number] [address] [place] [address] Nov, Bipolar 1 disorder, mixed F3 1.60 [place] [address] [place] [id number] [address] [place] [address] Nov, Bipolar 1 disorder, mixed F3 1.60 [facility] [address] [place] [id number] [address] [place] [address] Nov, Bipolar 1 disorder, mixed F3 1.60 [facility] [address] [facility] [id number] [address] [place] [address] Nov, [place] [address] [place] [id number] [address] [place] [address] Nov, Anesthesia of skin R20.0 ; F requent UTI N39.0 ; Tobacco abuse Z72.0 and Colon cancer screening Z12.11 [facility] [address] [facility] [id number] [address] [place] [address] Nov, Bipolar 1 disorder, mixed F3 1.60 [facility] [address] [facility] [id number] [address] [place] [address] October, Bipolar 1 disorder, mixed F3 1.60 [facility] [address] [facility] [id number] [address] [place] [address] October, Bipolar 1 disorder, mixed F3 1.60 [facility] [address] [place] [id number] [address] [place] [address] October, Bipolar 1 disorder, mixed F3 1.60 [place] [address] [place] [id number] [address] [place] [address] October, Bipolar 1 disorder, mixed F3 1.60 [place] [address] [place] [id number] [address] [place] [address] October, Bipolar 1 disorder, mixed F3 1.60 [place] [address] [address] October, Cervicalgia M54.2 and Bipola r 1 disorder, mixed F31.60 [place] [address] [address] October, Hypertension I10 ; Hyperlipi demia, unspecified hyperlipidemia type E78.5 and Family history of thyroid disease Z83.49 [place] [address] [address] October, [place] [address] [address] October, Hypertension I10 ; Hyperlipi demia, unspecified hyperlipidemia type E78.5 and Family history of thyroid problem Z83.49 [place] [address] [address] October, Bipolar 1 disorder, mixed F3 1.60 [place] [address] [address] Sep, Bipolar 1 disorder, mixed F3 1.60 [place] [address] [place] [id number] [address] [place] [address] Sep, Bipolar 1 disorder, mixed F3 1.60 [place] [address] [place] [id number] [place] [address] Sep, Bipolar 1 disorder, mixed F3 1.60 [place] [address] [place] [id number] [address] [place] [address] Sep, History of colon polyps Z86. 010 and Hematochezia K92.1 [facility] [address] [place] [id number] [address] [place] [address] Sep, Major depressive disorder, r ecurrent episode, moderate F33.1 [facility] [address] [facility] [id number] [address] [place] [address] Sep, Bipolar 1 disorder, mixed F3 1.60 [facility] [address] [facility] [id number] [address] [place] [address] Aug, Hot flashes due to menopause N95.1 [facility] [address] [facility] [id number] [address] [place] [address] Aug, Bipolar 1 disorder, mixed F3 1.60 [place] [address] [place] [id number] [address] [place] [address] Aug, [place] [address] [place] [id number] [address] [place] [address] Aug, Bipolar 1 disorder, mixed F3 1.60 [place] [address] [place] [id number] [address] [place] [address] Aug, Bipolar 1 disorder, mixed F3 1.60 [place] [address] [place] [id number] [address] [place] [address] Aug, Hot flashes due to menopause N95.1 ; Cervicalgia M54.2 and Ataxia R27.0 [facility] [address] [facility] [id number] [address] [place] [address] Jul, Bipolar 1 disorder, mixed F3 1.60 [place] [address] [facility] [id number] [address] [place] [address] Jul, Bipolar 1 disorder, mixed F3 1.60 [facility] [address] [facility] [id number] [address] [place] [address] Jul, Bipolar 1 disorder, mixed F3 1.60 [facility] [address] [place] [id number] [address] [place] [address] 13 Jul, 2016 Bipolar 1 disorder, mixed F3 1.60 [facility] [address] Jul, Bipolar 1 disorder, mixed F3 1.60 [facility] [address] [place] [id number] [address] [place], [place] [address] 08 Jul, 2016 Cervicalgia M54.2 ; Tremor R 25.1 ; Hearing abnormally acute, unspecified laterality H93.239 ; Alopecia L65.9 ; Encounter for immunization Z23 and Family history of thyroid disease Z83.49 [place] [address] Jul, Bipolar 1 disorder, mixed F3 1.60 [place] [address] [place] [address] Jun, [place] [address] [place] [address] Jun, Hearing disorder, unspecifie d laterality H93.299 [place] [address] [address] Jun, Bipolar 1 disorder, mixed F3 1.60 [facility] [address] [place] [id number] [address] [place] [address] Jun, Bipolar 1 disorder, mixed F3 1.60 [place] [address] [place] [address] Jun, Allergic rhinitis J30.9 [facility] [address] [place] [id number] [address] [place] [address] Jun, Bipolar 1 disorder, mixed F3 1.60 [place] [address] [place] [id number] [address] [place], [place] [address] Jun, Bipolar 1 disorder, mixed F3 1.60 [facility] [address] [place] [id number] [address] [place] [address] Jun, Allergic rhinitis J30.9 [facility] [address] [facility] [id number] [address] [place] [address] Jun, Allergic rhinitis J30.9 [facility] [address] [facility] [id number] [address] [place] [address] Jun, Bipolar 1 disorder, mixed F3 1.60 [facility] [address] [facility] [id number] [address] [place] [address] May, Bipolar 1 disorder, mixed F3 1.60 [facility] [address] [id number] [address] [place] [address] May, Bipolar 1 disorder, mixed F3 1.60 [facility] [address] [facility] [id number] [address] [place] [address] May, [facility] [address] [facility] [id number] [address] [place] [address] May, Bipolar 1 disorder, mixed F3 1.60 [facility] [address] [facility] [id number] [address] [place] [address] May, Bipolar 1 disorder, mixed F3 1.60 [facility] [address] [facility] [id number] [address] [place] [address] May, [facility] [address] [facility] [id number] [address] [place] [address] May, [facility] [address] [place] [id number] [address] [place] [address] May, [facility] [address] [facility] [id number] [address] [place] [address] May, Abdominal pain, unspecified location R10.9 [facility] [address] [facility] [id number] [address] [place] [address] May, [facility] [address] [facility] [id number] [address] [place] [address] Apr, Hematuria R31.9 ; Ataxia R27 .0 and Hearing loss, unspecified laterality H91.90 [place] [address] [place] [address] Apr, Bipolar 1 disorder, mixed F3 1.60 [facility] [address] [place] [id number] [address] [place] [address] Apr, Acute effusion of both middl e ears H65.193 [place] [address] [place] [id number] [address] [place] [address] 10 Apr, 2016 Hematuria R31.9 and Pyelonep hritis N12 [place] [address] [address] Apr, [place] [address] [address] Mar, Bipolar 1 disorder, mixed F3 1.60 [place] [address] [address] Mar, [place] [address] [address] Mar, Bipolar 1 disorder, mixed F3 1.60 [place] [address] [address] Mar, Bipolar 1 disorder, mixed F3 1.60 [place] [address] [address] Mar, Encounter for immunization Z 23 and Gastritis without bleeding, unspecified chronicity, unspecified gastritis type K29.70 [place] [address] [place] [id number] [address] [place] [address] Mar, Bipolar 1 disorder, mixed F3 1.60 and Grief F43.20 [place] [address] [address] Mar, Gastritis without bleeding, unspecified chronicity, unspecified gastritis type K29.70 [place] [address] [address] Mar, Bipolar 1 disorder, mixed F3 1.60 [facility] [address] [place] [id number] [address] [place] [address] Mar, Gastritis without bleeding, unspecified chronicity, unspecified gastritis type K29.70 [facility] [address] [place] [id number] [address] [place] [address] Mar, [place] [address] [place] [address] Feb, Bipolar 1 disorder, mixed F3 1.60 [place] [address] [place] [id number] [place] [address] Feb, Bipolar 1 disorder, mixed F3 1.60 and Grief F43.20 [place] [address] [place] [id number] [place] [address] Feb, Gastritis without bleeding, unspecified chronicity, unspecified gastritis type K29.70 [place] [address] [address] Feb, Bipolar 1 disorder, mixed F3 1.60 [facility] [address] [place] [id number] [place] [address] 09 Feb, 2016 Gastroesophageal reflux dise ase, esophagitis presence not specified K21.9 [facility] [address] [place] [id number] [address] [place] [address] Jan, Bipolar 1 disorder, mixed F3 1.60 [facility] [address] [place] [id number] [address] [place] [address] Jan, Bipolar 1 disorder, mixed F3 1.60 and Unsteady gait R26.81 [place] [address] [place] [id number] [place] [address] Jan, Bipolar 1 disorder, mixed F3 1.60 [facility] [address] [place] [id number] [address] [place] [address] Jan, Bipolar 1 disorder, mixed F3 1.60 and Other correction (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 Z79.899 [facility] [address] [facility] [id number] [address] [place] [address] Jan, Bipolar 1 disorder, mixed F3 1.60 [facility] [address] [facility] [id number] [address] [place] [address] Jan, Bipolar 1 disorder, mixed F3 1.60 [facility] [address] [place] [id number] [address] [place] [address] Jan, Bipolar 1 disorder, mixed F3 1.60 ; Grief F43.20 and Other oysterman (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 Z79.899 [facility] [address] [facility] [id number] [address] [place] [address] Jan, Bipolar 1 disorder, mixed F3 1.60 [place] [address] [place] [id number] [address] [place] [address] Dec, [place] [address] [place] [id number] [place] [address] Dec, Bipolar 1 disorder, mixed F3 1.60 ; Vitamin D deficiency, unspecified E55.9 ; H/O allergic rhinitis Z87.09 ; Other chronic pain G89.29 and Dorsalgia, unspecified M54.9 [place] [address] [place] [id number] [address] [place] [address] Dec, [place] [address] [place] [id number] [address] [place] [address] Dec, Bipolar 1 disorder, mixed F3 1.60 [facility] [address] [place] [id number] [address] [place] [address] Dec, Major depressive disorder, r ecurrent episode, moderate F33.1 [place] [address] [place] [id number] [address] [place] [address] Dec, Major depressive disorder, r ecurrent episode, moderate F33.1 [place] [address] [place] [id number] [address] [place] [address] Nov, [place] [address] [facility] [id number] [address] [place] [address] Nov, Bipolar 1 disorder, mixed F3 1.60 [place] [address] [facility] [id number] [address] [place] [address] Nov, Major depressive disorder, r ecurrent episode, moderate F33.1 [place] [address] [facility] [id number] [address] [place] [address] Nov, Cervicalgia M54.2 ; Arthralg ia of hip, unspecified laterality M25.559 ; Allergic rhinitis J30.9 and Hormone replacement therapy Z79.890 [facility] [address] [facility] [id number] [address] [place] [address] Nov, Other seasonal allergic rhin itis J30.2 [place] [address] [facility] [id number] [address] [place] [address] October, Major depressive disorder, r ecurrent episode, moderate F33.1 [place] [address] [facility] [id number] [address] [place] [address] October, Major depressive disorder, r ecurrent episode, moderate F33.1 and Arthralgia of hip, unspecified laterality M25.559 [place] [address] [facility] [id number] [address] [place] [address] October, Grief F43.20 ; Hypertension I10 ; Hyperlipidemia, unspecified hyperlipidemia type E78.5 ; Other chronic pain G89.29 and Allergic rhinitis, unspecified allergic rhinitis type J30.9 [place] [address] [facility] [id number] [address] [place] [address] October, Major depressive disorder, r ecurrent episode, moderate F33.1 [place] [address] [facility] [id number] [address] [place] [address] Sep, Major depressive disorder, r ecurrent episode, moderate F33.1 [place] [address] [place] [id number] [address] [place] [address] Sep, [facility] [address] [place] [address] Sep, Major depressive disorder, r ecurrent episode, moderate F33.1 [place] [address] [place] [address] Sep, Grief F43.20 [place] [address] [address] Aug, Major depressive disorder, r ecurrent episode, moderate F33.1 [place] [address] [address] Aug, Bipolar 1 disorder, mixed F3 1.60 [place] [address] [address] Aug, Allergic rhinitis J30.9 ; Ce rvicalgia M54.2 and Low back pain M54.5 [place] [address] [address] Aug, Major depressive disorder, r ecurrent episode, moderate F33.1 [facility] [address] [address] Aug, Sinusitis J32.9 and Tobacco 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 [place] [address] [address] Aug, [facility] [address] [address] Aug, Depressive disorder, not els ewhere classified F32.9 ; Hormone replacement therapy Z79.[address] scan, head R93.0 [place] [address] [address] Aug, Major depressive disorder, r ecurrent episode, moderate F33.1 [facility] [address] [place] [address] Jul, Major depressive disorder, r ecurrent episode, moderate F33.1 [facility] [address] [id number] [address] [place] [address] Jul, Abdominal pain R10.9 and Hyp ertension I10 [facility] [address] [id number] [address] [place] [address] Jul, [facility] [address] [id number] [address] [place] [address] Jul, Major depressive disorder, r ecurrent episode, moderate F33.1 [facility] [address] [id number] [address] [place] [address] Jul, [facility] [address] [id number] [address] [place] [address] Jul, [facility] [address] [facility] [id number] [address] [place] [address] Jun, [facility] [address] [id number] [address] [place] [address] Jun, Depressive disorder, not els ewhere classified F32.9 [facility] [address] [facility] [id number] [address] [place] [address] Jun, [facility] [address] [id number] [address] [place] [address] Jun, [facility] [address] [facility] [id number] [address] [place] [address] Jun, Arthralgia of hip, unspecifi ed laterality M25.559 ; Bruising, spontaneous R23.3 and Night sweats R61 [facility] [address] [id number] [address] [place] [address] Jun, [facility] [address] [facility] [id number] [address] [place] [address] Jun, [facility] [address] [facility] [id number] [address] [place] [address] May, [facility] [address] [id number] [address] [place] [address] May, Myalgia M79.1 and Screening, lipid Z13.220 [facility] [address] [facility] [id number] [address] [place] [address] Apr, Status post cervical spinal fusion Z98.1 ; Fibromyalgia M79.7 and Unsteady gait R26.81 [facility] [address] [id number] [address] [place] [address] Nov, [facility] [address] [id number] [address] [place] [address] Nov, [facility] [address] [id number] [address] [place] [address] October, [facility] [address] [facility] [id number] [address] [place] [address] October, [facility] [address] [facility] [id number] [address] [place] [address] October, [facility] [address] [facility] [id number] [address] [place] [address] October, [facility] [address] [facility] [id number] [address] [place] [address] October, [facility] [address] [facility] [id number] [address] [place] [id number] October, Dysuria 788.1 ; Nausea 787.0 2 and Urinary tract infection 599.0 [facility] [address] [id number] [address] [place] [id number] Sep, [facility] [address] [facility] [id number] [address] [place] [id number] Sep, [facility] [address] [facility] [id number] [address] [place] [id number] Aug, [facility] [address] [facility] [id number] [address] [place] [id number] 25 Aug, 2014 [facility] [address] [id number] [facility] [place] [id number] 24 Aug, 2014 [facility] [address] [id number] [facility] [place] [id number] 24 Aug, 2014 [facility] [address] [id number] [address] [place] [address], [place] [id number] 23 Aug, 2014 [facility] [address] [id number] [address] [place] [address], [place] [id number] 19 Aug, 2014 [facility] [address] [id number] [address] [place] [address], [place] [id number] 19 Aug, 2014 [facility] [address] [id number] [address] [place] [address], [place] [id number] 19 Aug, 2014 [facility] [address] [id number] [address] [place] [address], [place] [id number] 19 Aug, 2014 [facility] [address] [id number] [address] [place] [address], [place] [id number] 18 Aug, 2014 [facility] [address] [id number] [address] [place] [address], [place] [id number] 18 Aug, 2014 [facility] [address] [id number] [address] [place] [address], [place] [id number] 13 Aug, 2014 [facility] [address] [id number] [address] [place] [address], [place] [id number] 13 Aug, 2014 [facility] [address] [id number] [address] [place] [address], [place] [id number] 11 Aug, 2014 [facility] [address] [id number] [address] [place] [address], [place] [id number] 11 Aug, 2014 [facility] [address] [id number] [address] [place] [address], [place] [id number] 06 Aug, 2014 [facility] [address] [id number] [address] [place] [address], [place] [id number] 06 Aug, 2014 [facility] [address] [id number] [address] [place] [address], [place] [id number] 05 Aug, 2014 [facility] [address] [id number] [address] [place] [address], [place] [id number] 05 Aug, 2014 [facility] [address] [id number] [address] [place] [address], [place] [id number] 04 Aug, 2014 [facility] [address] [id number] [address] [place] [address], [place] [id number] Aug, 2014 [facility] [address] [id number] [address] [place] [address], [place] [id number] Aug, [facility] [address] [id number] [address] [place] [address], [place] [id number] Jul, 2014 [facility] [address] [id number] [address] [place] [address], [place] [id number] Jul, 2014 [facility] [address] [id number] [address] [place] [address], [place] [id number] Jul, 2014 [facility] [address] [id number] [address] [place] [address], [place] [id number] Jul, [facility] [address] [id number] [address] [place] [address], [place] [id number] Jul, [facility] [address] [id number] [address] [place] [address], [place] [id number] Jul, [facility] [address] [id number] [address] [place] [address], [place] [id number] Jul, 2014 [facility] [address] [id number] [address] [place] [address], [place] [id number] Jul, 2014 [facility] [address] [id number] [address] [place] [address], [place] [id number] Jul, 2014 [facility] [address] [id number] [address] [place] [id number] Jul, 2014 [facility] [address] [id number] [address] [place] [id number] Jul, 2014 [facility] [address] [id number] [address] [place] [address], [place] [address] Jul, [facility] [address] [id number] [address] [place] [address], [place] [id number] Jul, [facility] [address] [id number] [address] [place] [address], [place] [address] Jul, [facility] [address] [id number] [address] [place] [id number] Jun, [facility] [address] [id number] [address] [place] [address], [place] [address] Jun, [facility] [address] [id number] [address] [place] [address], [place] [address] Jun, [facility] [address] [id number] [address] [place] [address], [place] [address] Jun, [facility] [address] [id number] [address] [place] [address], [place] [address] Jun, [facility] [address] [id number] [address] [place] [address], [place] [address] Jun, [facility] [address] [id number] [address] [place] [address], [place] [address] May, [facility] [address] [id number] [address] [place] [address], [place] [address] May, [facility] [address] [id number] [address] [place] [address], [place] [address] May, [facility] [address] [id number] [address] [place] [address], [place] [address] May, [facility] [address] [id number] [address] [place] [address], [place] [address] May, [facility] [address] [id number] [address] [place] [address], [place] [address] May, [facility] [address] [id number] [address] [place] [address], [place] [address] Apr, [facility] [address] [id number] [address] [place] [address], [place] [address] Apr, [facility] [address] [id number] [address] [place] [address], [place] [address] Apr, [facility] [address] [id number] [address] [place] [address], [place] [address] Apr, [facility] [address] [id number] [address] [place] [address], [place] [address] Apr, [facility] [address] [id number] [address] [place] [address], [place] [address] Apr, [facility] [address] [id number] [address] [place] [address], [place] [address] Mar, [facility] [address] [id number] [address] [place] [address], [place] [address] Mar, [facility] [address] [id number] [address] [place] [address], [place] [address] Mar, [facility] [address] [id number] [address] [place] [address], [place] [address] Mar, [facility] [address] [id number] [address] [place] [address], [place] [address] Mar, [facility] [address] [id number] [address] [place] [address], [place] [address] Mar, [facility] [address] [id number] [address] [place] [id number] Mar, [facility] [address] [id number] [address] [place] [address], [place] [address] Mar, [facility] [address] [id number] [address] [place] [address], [place] [address] Mar, [facility] [address] [id number] [address] [place] [address], [place] [address] Mar, [facility] [address] [id number] [address] [place] [address], [place] [address] Mar, [facility] [address] [id number] [address] [place] [address], [place] [address] Mar, [facility] [address] [id number] [address] [place] [address], [place] [id number] 30 Feb, 2014 [facility] [address] [id number] [address] [place] [address], [place] [address] Feb, [facility] [address] [id number] [address] [place] [address], [place] [id number] Feb, [facility] [address] [id number] [address] [place] [address], [place] [address] Feb, [facility] [address] [id number] [address] [place] [address], [place] [address] Feb, [facility] [address] [id number] [address] [place] [address], [place] [address] Feb, [facility] [address] [id number] [address] [place] [address], [place] [address] Feb, [facility] [address] [id number] [address] [place] [address], [place] [address] Jan, [facility] [address] [id number] [address] [place] [address], [place] [address] Jan, [facility] [address] [id number] [address] [place] [address], [place] [address] Jan, [facility] [address] [id number] [address] [place] [address], [place] [address] Dec, [facility] [address] [id number] [address] [place] [address], [place] [address] Dec, [facility] [address] [id number] [address] [place] [address], [place] [address] Dec, [facility] [address] [id number] [address] [place] [address], [place] [address] Dec, [facility] [address] [id number] [address] [place] [address], [place] [address] Sep, [facility] [address] [id number] [address] [place] [address], [place] [id number] Sep, [facility] [address] [id number] [address] [place] [address], [place] [id number] Sep, [facility] [address] [id number] [address] [place] [address], [place] [address] Sep, [facility] [address] [id number] [address] [place] [address], [place] [address] Sep, [facility] [address] [id number] [address] [place] [address], [place] [id number] Sep, [facility] [address] [id number] [address] [place] [address], [place] [address] Sep, [facility] [address] [id number] [address] [place] [address], [place] [address] Sep, [facility] [address] [id number] [address] [place] [address], [place] [address] Aug, [facility] [address] [id number] [address] [place] [address], [place] [address] Aug, [facility] [address] [id number] [address] [place] [address], [place] [address] May, [facility] [address] [id number] [address] [place] [address], [place] [address] May, [facility] [address] [id number] [address] [place] [address], [place] [address] Apr, [facility] [address] [id number] [address] [place] [address], [place] [address] Apr, [facility] [address] [id number] [address] [place] [address], [place] [address] Apr, [facility] [address] [id number] [address] [place] [address], [place] [address] Apr, [facility] [address] [id number] [address] [place] [address], [place] [address] Apr, [facility] [address] [id number] [address] [place] [address], [place] [address] Apr, [facility] [address] [id number] [address] [place] [address], [place] [address] 18 May, 2012 [facility] [address] [id number] [address] [place] [address], [place] [address] 18 May, 2012 [facility] [address] [id number] [address] [place] [address], [place] [id number] 15 May, 2012 [facility] [address] [id number] [address] [place] [address], [place] [address] 15 May, 2012 [facility] [address] [id number] [address] [place] [address], [place] [address] 13 May, 2012 [facility] [address] [id number] [address] [place] [address], [place] [address] 13 May, 2012 [facility] [address] [id number] [address] [place] [address], [place] [address] 13 Apr, 2012 [facility] [address] [id number] [address] [place] [address], [place] [address] 13 Apr, 2012 [facility] [address] [id number] [address] [place] [address], [place] [id number] Apr, [facility] [address] [id number] [address] [place] [address], [place] [address] Apr, [facility] [address] [id number] [address] [place] [address], [place] [address] Apr, [facility] [address] [id number] [address] [place] [address], [place] [id number] 08 Apr, 2012 [facility] [address] [id number] [address] [place] [address], [place] [address] Apr, [facility] [address] [id number] [address] [place] [address], [place] [id number] Apr, [facility] [address] [id number] [address] [place] [address], [place] [address] Apr, [facility] [address] [id number] [address] [place] [address], [place] [address] Apr, [facility] [address] [id number] [address] [place] [address], [place] [address] Mar, [facility] [address] [id number] [address] [place] [address], [place] [address] Mar, [facility] [address] [id number] [address] [place] [id number] Mar, [facility] [address] [id number] [address] [place] [address], [place] [address] Mar, [facility] [address] [id number] [address] [place] [id number] Mar, [facility] [address] [id number] [address] [place] [address], [place] [address] Mar, [facility] [address] [id number] [address] [place] [id number] Mar, [facility] [address] [id number] [address] [place] [address] Mar, [facility] [address] [id number] [address] [place] [id number] Mar, [facility] [address] [id number] [address] [place] [address], [place] [id number] 25 Feb, 2012 [facility] [address] [id number] [address] [place] [id number] 16 Sep2011 [facility] [address] [id number] [address] [place] [id number] 11 Feb, 2012 [facility] [address] [id number] [address] [place] [address], [place] [address] Jan, [facility] [address] [id number] [address] [place] [address], [place] [address] Jan, [facility] [address] [id number] [address] [place] [address], [place] [address] Jan, [facility] [address] [id number] [address] [place] [address], [place] [id number] Jan, [facility] [address] [id number] [address] [place] [address], [place] [id number] Jan, [facility] [address] [id number] [address] [place] [address], [place] [id number] Jan, [facility] [address] [id number] [address] [place] [address], [place] [address] 16 Jan, 2012 [facility] [address] [id number] [address] [place] [address], [place] [address] Jan, [facility] [address] [id number] [address] [place] [address], [place] [id number] Jan, [facility] [address] [id number] [address] [place] [address], [place] [id number] Jan, [facility] [address] [id number] [address] [place] [address], [place] [address] Dec, [facility] [address] [id number] [address] [place] [address], [place] [address] Dec, [facility] [address] [id number] [address] [place] [address], [place] [id number] Dec, [facility] [address] [id number] [address] [place] [address], [place] [id number] Dec, [facility] [address] [id number] [address] [place] [address], [place] [address] Nov, [facility] [address] [id number] [address] [place] [address], [place] [id number] 08 Nov, 2011 [facility] [address] [id number] [address] [place] [id number] Nov, [facility] [address] [id number] [address] [place] [id number] October, [facility] [address] [id number] [address] [place] [id number] October, [facility] [address] [id number] [address] [place] [id number] October, [facility] [address] [id number] [address] [place] [id number] October, [facility] [address] [id number] [address] [place] [id number] October, [facility] [address] [id number] [address] [place] [address] October, [facility] [address] [id number] [address] [place] [id number] Aug, [facility] [address] [id number] [address] [place] [id number] Mar, [facility] [address] [id number] [address] [place] [id number] Nov, [facility] [address] [id number] [address] [place] [id number] May, [facility] [address] [id number] [address] [place] [id number] May, [facility] [address] [id number] [address] [place] [id number] Apr, [facility] [address] [id number] [address] [place] [id number] Mar, [facility] [address] [id number] [address] [place] [id number] Mar, IMMUNIZATIONS No Known Immunizations SOCIAL HISTORY [...]
--- OUTSIDE RECORDS SUMMARY | 2019-06-19 05:16 | XMS REPORT ---
Author Author Sydnie HANCOCK [facility] Address [address] [place] [address] Care Team Providers Care Learning Support Assistant Name Role Phone NAHOMY HANCOCK Unavailable PROBLEMS Type Condition ICD9-CM Code QUY30-LL Code Onset Dates Condition S tatus SNOMED Code Problem Age-related osteoporosis without current pathological fracture M81.0 Active 05325567 Problem Sensorineural hearing loss (SNHL) of both ears H90 .3 Active 203643490 Problem Ab[address] CT scan, head R93.0 Active 249869257 Problem Arthralgia of hip, unspecified laterality M25.559 Active 22961443 Problem Bruising, spontaneous R23.3 Active 645138572 Problem Hypertension I10 Active 5737730 3 Problem Night sweats R61 Active 7761432 0 Problem Imbalance R26.89 Active 442560477 Problem Hammer toe of right foot M20.41 Activ e 353977860 Problem Hormone replacement therapy Z79.890 Ac tive 675071068 Problem Bipolar 1 disorder, mixed F31.60 Acti ve 50855283 Problem Gastritis without bleeding, unspecified chronicity, unspecified gastritis type K29.70 Active 460007360 Problem Ataxia R27.0 Active 21744246 Problem Hearing loss, unspecified laterality H91.90 Active 16096989 Problem History of colon polyps Z86.010 Active 220053272 Problem Allergic rhinitis J30.9 Active 61 889206 Problem Hematuria, unspecified type R31.9 Ac tive 85840569 Problem Generalized anxiety disorder F41.1 A ctive 92641277 Problem Major depressive disorder, recurrent episode, moderate F33.1 Active 313309809 Problem Fibromyalgia M79.7 Active 2703459 7 Problem Bladder spasm N32.89 Active 350510 006 Problem Tobacco use disorder F17.200 Active 962573254 Problem Other chronic pain G89.29 Active 8 5131659 Problem Post menopausal syndrome N95.1 Activ e 741283413 Problem Grief F43.20 Active 85155566 Problem Hyperlipidemia, unspecified hyperlipidemia type E7 8.5 Active 86624688 Problem Acute left-sided low back pain with left-sided sciatica M54.42 Active 016316879 Problem Sciatica of left side M54.32 Active 68960830 Problem Plantar wart of right foot B07.0 Act mitchell [id number] Problem Slow transit constipation K59.01 Acti ve 28125734 ALLERGIES No Information ENCOUNTERS Encounter Location Date Diagnosis [facility], [place] [address] [place] [id number] [place] [address] Jan, [facility] [place] [address] [facility] [id number] [address] [place] [address] Dec, [facility], [place] [address] [id number] [place] [address] Dec, [facility], [place] [address] [address] [id number] [place] [address] Dec, [facility], [place] [address] [id number] [place] [address] Nov, Bipolar 1 disorder, mixed F3 1.60 [facility], [place] [address] [id number] [place] [address] Nov, Bipolar 1 disorder, mixed F3 1.60 ; Generalized anxiety disorder F41.1 ; Tobacco use disorder F17.200 and 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 [facility], [place] [id number] [place] [address] Nov, [facility], [place] [address] [id number] [place] [address] Nov, Bipolar 1 disorder, mixed F3 1.60 [facility], [place] [address] [id number] [place] [address] October, Bipolar 1 disorder, mixed F3 1.60 [facility], [place] [address] [id number] [place] [address] October, Bipolar 1 disorder, mixed F3 1.60 [place] [address] [place] [address] October, [place] [address] [address] October, Bipolar 1 disorder, mixed F3 1.60 ; Generalized anxiety disorder F41.1 and Tobacco use disorder F17.200 [place] [address] [address] Sep, [place] [address] [place] [id number] [place] [address] Sep, Encounter for Medicare annua wellness exam Z00.00 ; Major depressive disorder, recurrent episode, moderate F33.1 ; Allergic rhinitis J30.9 ; Bipolar 1 disorder, mixed F31.60 ; Fibromyalgia M79.7 ; Hyperlipidemia, unspecified hyperlipidemia type E78.5 ; Hormone replacement therapy Z79.890 ; Encounter for screening for lung cancer Z12.2 and Tobacco use disorder F17.200 [place] [address] [place] [id number] [place] [address] Sep, Bipolar 1 disorder, mixed F3 1.60 [place] [address] [address] Sep, Other chronic pain G89.29 ; Hyperlipidemia, unspecified hyperlipidemia type E78.5 ; Breast cancer screening Z12.31 and Post menopausal syndrome N95.1 [place] [address] [place] [address] Sep, Bipolar 1 disorder, mixed F3 1.60 [place] [address] [place] [id number] [place] [address] Sep, Bipolar 1 disorder, mixed F3 1.60 ; Generalized anxiety disorder F41.1 and Tobacco use disorder F17.200 [place] [address] [place] [id number] [place] [address] Sep, Gastritis without bleeding, unspecified chronicity, unspecified gastritis type K29.70 [place] [address] [facility] [id number] [address] [place] [address] 08 Sep, 2018 Exercise counseling Z71.82 [place] [address] [facility] [id number] [address] [place] [address] Aug, Exercise counseling Z71.82 [place] [address] [place] [id number] [place] [address] Aug, Bipolar 1 disorder, mixed F3 1.60 [place] [address] [facility] [id number] [address] [place] [address] Aug, Exercise counseling Z71.82 [place] [address] [place] [id number] [place] [address] Aug, Bipolar 1 disorder, mixed F3 1.60 [place] [address] [place] [id number] [place] [address] Aug, Gastritis without bleeding, unspecified chronicity, unspecified gastritis type K29.70 ; Tobacco abuse Z72.0 ; Generalized anxiety disorder F41.1 and Weight gain R63.5 [place] [address] [facility] [id number] [address] [place] [address] Aug, Bipolar 1 disorder, mixed F3 1.60 ; Generalized anxiety disorder F41.1 and Tobacco use disorder F17.200 [place] [address] [place] [id number] [place] [address] Jul, Bipolar 1 disorder, mixed F3 1.60 [place] [address] [facility] [id number] [address] [place] [address] Jul, [place] [address] [facility] [id number] [address] [place] [address] Jul, Bipolar 1 disorder, mixed F3 1.60 [place] [address] [facility] [id number] [address] [place] [address] 11 Jul, 2018 Allergic rhinitis J30.9 ; Ma darion depressive disorder, recurrent episode, moderate F33.1 and Tobacco 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 [facility], [place] [address] [id number] [address] [place] [address] Jun, [facility], [place] [address] [id number] [address] [place] [address] Jun, [facility], [place] [address] [facility] [id number] [address] [place] [address] Jun, Bipolar 1 disorder, mixed F3 1.60 [facility], [place] [address] [facility] [id number] [address] [place] [address] Jun, Bipolar 1 disorder, mixed F3 1.60 [facility], [place] [address] [id number] [address] [place] [address] Jun, Bipolar 1 disorder, mixed F3 1.60 [facility], [place] [address] [facility] [id number] [address] [place] [address] Jun, Generalized anxiety disorder F41.1 ; Tobacco abuse Z72.0 and Major depressive disorder, recurrent episode, moderate F33.1 [facility], [place] [address] [facility] [id number] [address] [place] [address] May, Bipolar 1 disorder, mixed F3 1.60 [facility], [place] [address] [facility] [id number] [address] [place] [address] May, Bipolar 1 disorder, mixed F3 1.60 and Generalized anxiety disorder F41.1 [facility], [place] [address] [facility] [id number] [address] [place] [address] May, Bipolar 1 disorder, mixed F3 1.60 [facility], [place] [address] [facility] [id number] [address] [place] [address] May, Allergic rhinitis J30.9 [facility], [place] [address] [facility] [id number] [address] [place] [address] May, Bipolar 1 disorder, mixed F3 1.60 [facility], [place] [address] [facility] [id number] [address] [place] [address] May, [facility], [place] [id number] [place] [address] Apr, Allergic rhinitis J30.9 ; Dy sfunction of both eustachian tubes H69.83 ; History of bladder surgery Z98.890 and Cervicalgia M54.2 [facility], [place] [id number] [place] [address] Mar, Bipolar 1 disorder, mixed F3 1.60 [place] [address] [address] Mar, [place] [address] [address] Mar, Slow transit constipation K5 9.01 ; Encounter for immunization Z23 and Generalized anxiety disorder F41.1 [place] [address] [place] [id number] [place] [address] 27 Feb, 2018 Bipolar 1 disorder, mixed F3 1.60 [place] [address] [place] [address] 26 Feb, 2018 Allergic rhinitis J30.9 [facility], [place] [id number] [place] [address] 24 Feb, 2018 Bipolar 1 disorder, mixed F3 1.60 [place] [address] [place] [id number] [place] [address] 20 Feb, 2018 Bipolar 1 disorder, mixed F3 1.60 and Generalized anxiety disorder F41.1 [place] [address] [place] [id number] [place] [address] 13 Feb, 2018 Bipolar 1 disorder, mixed F3 1.60 [place] [address] [place] [id number] [place] [address] 11 Feb, 2018 Allergic rhinitis J30.9 [facility], [place] [id number] [place] [address] 05 Feb, 2018 [facility], [place] [address] [id number] [place] [address] Jan, Bipolar 1 disorder, mixed F3 1.60 [facility], [place] [id number] [place] [address] Jan, Low back pain M54.5 ; Hyperl ipidemia, unspecified hyperlipidemia type E78.5 and Bipolar 1 disorder, mixed F31.60 [facility], [place] [id number] [place] [address] Jan, Bipolar 1 disorder, mixed F3 1.60 [facility], [place] [id number] [place] [address] Jan, Bipolar 1 disorder, mixed F3 1.60 [facility], [place] [id number] [place] [address] Jan, Bipolar 1 disorder, mixed F3 1.60 [facility], [place] [id number] [place] [address] Jan, Bipolar 1 disorder, mixed F3 1.60 [facility], [place] [id number] [place] [address] Dec, Bipolar 1 disorder, mixed F3 1.60 ; Generalized anxiety disorder F41.1 and 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 [facility], [place] [id number] [place] [address] Dec, Other skilled nursing (current) dr ug therapy Z79.899 [facility], [place] [id number] [place] [address] Dec, Bipolar 1 disorder, mixed F3 1.60 [facility], [place] [address] [id number] [place] [address] Dec, Bipolar 1 disorder, mixed F3 1.60 [facility], [place] [id number] [place], [place] [id number] Nov, Bipolar 1 disorder, mixed F3 1.60 [facility], [place] [id number] [place] [address] Nov, Bipolar 1 disorder, mixed F3 1.60 [place] [id number] [place] [id number] [place] [address] 13 Nov, 2017 Bipolar 1 disorder, mixed F3 1.60 [place] [address] [facility] [id number] [address] [place] [address] Nov, Allergic rhinitis J30.9 [facility], [place] [address] [place] [address] Nov, Allergic rhinitis J30.9 [place] [address] [place] [id number] [place] [address] Nov, [place] [address] [address] Nov, Bipolar 1 disorder, mixed F3 1.60 [place] [address] [address] Nov, Fibromyalgia M79.7 and Aller gic rhinitis J30.9 [place] [address] [place] [address] October, Bipolar 1 disorder, mixed F3 1.60 [facility] [place] [address] [address] October, Acute nasopharyngitis J00 [facility] [place] [address] [address] October, Bitten or stung by nonvenomo us insect and other nonvenomous arthropods, initial encounter W57.XXXA and Insect bite (nonvenomous) of abdominal wall, initial encounter S30.861A [place] [address] [address] October, Insect bite (nonvenomous) of abdominal wall, initial encounter S30.861A ; Bitten or stung by nonvenomous insect and other nonvenomous arthropods, initial encounter W57.XXXA ; Allergic rhinitis J30.9 and Low back pain M54.5 [place] [address] [id number] [address] [place] [address] October, Bipolar 1 disorder, mixed F3 1.60 [facility], [place] [address] [id number] [address] [place] [address] October, [facility], [place] [address] [id number] [address] [place] [address] October, [facility], [place] [address] [id number] [address] [place] [address] October, Bipolar 1 disorder, mixed F3 1.60 [facility], [place] [address] [id number] [address] [place] [address] Sep, Bipolar 1 disorder, mixed F3 1.60 [facility], [place] [address] [facility] [id number] [address] [place] [address] Sep, Other chronic pain G89.29 [facility], [place] [address] [id number] [address] [place] [address] Sep, [facility], [place] [address] [id number] [address] [place] [address] Sep, Bipolar 1 disorder, mixed F3 1.60 [facility], [place] [address] [facility] [id number] [address] [place] [address] Sep, Allergic rhinitis J30.9 and Sciatica of left side M54.32 [facility], [place] [address] [facility] [id number] [address] [place] [address] Sep, Bipolar 1 disorder, mixed F3 1.60 [facility], [place] [address] [id number] [address] [place] [address] Sep, Bipolar 1 disorder, mixed F3 1.60 and Generalized anxiety disorder F41.1 [facility], [place] [address] [facility] [id number] [address] [place] [address] Aug, [facility], [place] [address] [facility] [id number] [address] [place] [address] Aug, Bipolar 1 disorder, mixed F3 1.60 [facility], [place] [address] [id number] [address] [place] [address] Aug, Bipolar 1 disorder, mixed F3 1.60 [facility], [place] [address] [facility] [id number] [address] [place] [address] Aug, [facility], [place] [address] [facility] [id number] [address] [place] [address] Aug, Generalized anxiety disorder F41.1 [facility], [place] [address] [facility] [id number] [address] [place] [address] Aug, Bipolar 1 disorder, mixed F3 1.60 [facility], [place] [address] [facility] [id number] [address] [place] [address] Aug, Plantar wart of right foot B 07.0 [facility], [place] [address] [facility] [id number] [address] [place] [address] Aug, Bipolar 1 disorder, mixed F3 1.60 [facility], [place] [address] [facility] [id number] [address] [place] [address] Jul, Bipolar 1 disorder, mixed F3 1.60 [facility], [place] [address] [facility] [id number] [address] [place] [address] Jul, [facility], [place] [address] [facility] [id number] [address] [place] [address] 14 Jul, 2017 Bipolar 1 disorder, mixed F3 1.60 [facility], [place] [address] [facility] [id number] [address] [place] [address] Jul, Generalized anxiety disorder F41.1 [facility], [place] [address] [facility] [id number] [address] [place] [address] Jul, Bipolar 1 disorder, mixed F3 1.60 [facility], [place] [address] [facility] [id number] [address] [place] [address] 07 Jul, 2017 Acute left-sided low back pa in with left-sided sciatica M54.42 [facility], [place] [address] [address] Jul, Coccydynia M53.3 [place] [address] [address] Jun, Bipolar 1 disorder, mixed F3 1.60 [facility] [place] [address] [address] Jun, Acute nasopharyngitis J00 [place] [address] [address] Jun, Bipolar 1 disorder, mixed F3 1.60 [place] [address] [address] Jun, Fibromyalgia M79.7 [place] [address] [address] Jun, Bipolar 1 disorder, mixed F3 1.60 [place] [address] [address] Jun, Fibromyalgia M79.7 and Bipol ar 1 disorder, mixed F31.60 [place] [address] [address] May, Bipolar 1 disorder, mixed F3 1.60 ; Generalized anxiety disorder F41.1 and 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 [place] [address] [address] May, Bipolar 1 disorder, mixed F3 1.60 [facility] [place] [address] [address] May, Cough R05 and Body aches R52 [facility] [place] [address] [address] May, Bladder spasm N32.89 and Acu te cystitis without hematuria N30.00 [place] [address] [address] 07 May, 2017 Bipolar 1 disorder, mixed F3 1.60 [facility], [place] [address] [place] [address] 30 Apr, 2017 [facility], [place] [address] Apr, Major depressive disorder, r ecurrent episode, moderate F33.1 and Encounter for immunization Z23 [facility], [place] [address] [place] [address] Apr, Bipolar 1 disorder, mixed F3 1.60 [facility], [place] [address] Apr, Bipolar 1 disorder, mixed F3 1.60 [place] [address] 16 Apr, 2017 Bipolar 1 disorder, mixed F3 1.60 [facility], [place] [address] [address] Apr, Yeast vaginitis B37.3 [facility], [place] [address] [address] 09 Apr, 2017 Bipolar 1 disorder, mixed F3 1.60 [facility] [address] [place] [id number] [place] [address] 07 Apr, 2017 Cellulitis L03[address] for immunization Z23 [facility], [place] [address] [place] [id number] [place] [address] Apr, Bipolar 1 disorder, mixed F3 1.60 [facility], [place] [address] [address] Mar, Bipolar 1 disorder, mixed F3 1.60 [facility], [place] [address] [address] Mar, Bipolar 1 disorder, mixed F3 1.60 [facility], [place] [address] [address] Mar, Imbalance R26.89 [address] Encount er for immunization Z23 [place] [address] [place] [address] Mar, Generalized anxiety disorder F41.1 [place] [address] [place] [id number] [place] [address] Mar, Bipolar 1 disorder, mixed F3 1.60 [place] [address] [place] [id number] [place] [id number] Mar, Generalized anxiety disorder F41.1 [place] [address] [place] [id number] [place] [id number] Mar, Bipolar 1 disorder, mixed F3 1.60 [place] [address] [place] [id number] [place] [id number] Mar, Bipolar 1 disorder, mixed F3 1.60 [place] [address] [place] [id number] [address] [place] [id number] Feb, Bipolar 1 disorder, mixed F3 1.60 [place] [address] [id number] Feb, Bipolar 1 disorder, mixed F3 1.60 and Generalized anxiety disorder F41.1 [place] [address] [place] [id number] [place] [id number] Feb, Gastritis without bleeding, unspecified chronicity, unspecified gastritis type K29.70 ; Hammer toe of right foot M20.41 and Other viral warts B07.8 [place] [address] [place] [id number] [place] [id number] Feb, Bipolar 1 disorder, mixed F3 1.60 [place] [address] [place] [id number] [place] [id number] Feb, Bipolar 1 disorder, mixed F3 1.60 [place] [address] [place] [id number] [place] [phone] 05 Feb, 2017 Bipolar 1 disorder, mixed F3 1.60 [facility] [place] [address] [facility] [id number] [address] [place] [id number] Jan, Encounter for screening mamm ogram for breast cancer Z12.31 ; Other viral warts B07.8 and Allergic rhinitis J30.9 [facility] [place] [address] [facility] [id number] [address] [place] [id number] Jan, Bipolar 1 disorder, mixed F3 1.60 [facility] [place] [address] [facility] [id number] [address] [place] [id number] Jan, Bipolar 1 disorder, mixed F3 1.60 [place] [address] [facility] [id number] [place] [address] Jan, [facility], [place] [address] [facility] [id number] [address] [place] [address] Jan, Bipolar 1 disorder, mixed F3 1.60 [place] [address] [facility] [id number] [address] [place] [address] Jan, Bipolar 1 disorder, mixed F3 1.60 [facility], [place] [address] [facility] [id number] [address] [place] [address] Jan, Allergic rhinitis J30.9 ; He maturia R31.9 and Colon cancer screening Z12.11 [facility], [place] [address] [facility] [id number] [address] [place] [address] Dec, Bipolar 1 disorder, mixed F3 1.60 [facility], [place] [address] [facility] [id number] [address] [place] [address] Dec, Bipolar 1 disorder, mixed F3 1.60 ; Generalized anxiety disorder F41.1 and Other skilled nursing (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 Z79.899 [facility], [place] [address] [facility] [id number] [address] [place] [address] Dec, Bipolar 1 disorder, mixed F3 1.60 [facility], [place] [address] [facility] [id number] [address] [place] [address] Dec, Bipolar 1 disorder, mixed F3 1.60 [facility], [place] [address] [facility] [id number] [address] [place] [address] Dec, Bipolar 1 disorder, mixed F3 1.60 [facility], [place] [address] [facility] [id number] [address] [place] [address] Dec, Low back pain M54.5 and Recu rrent urinary tract infection N39.0 [facility], [place] [address] [facility] [id number] [address] [place] [address] Nov, Bipolar 1 disorder, mixed F3 1.60 [facility], [place] [address] [facility] [id number] [address] [place] [id number] Nov, Bipolar 1 disorder, mixed F3 1.60 [place] [address] [place] [id number] [address] [place] [address] Nov, Bipolar 1 disorder, mixed F3 1.60 [facility], [place] [address] [place] [id number] [address] [place] [address] Nov, Bipolar 1 disorder, mixed F3 1.60 [facility], [place] [address] [facility] [id number] [address] [place] [address] Nov, [place] [address] [place] [id number] [address] [place] [address] Nov, Anesthesia of skin R20.0 ; F requent UTI N39.0 ; Tobacco abuse Z72.0 and Colon cancer screening Z12.11 [facility], [place] [address] [facility] [id number] [address] [place] [address] Nov, Bipolar 1 disorder, mixed F3 1.60 [facility], [place] [address] [facility] [id number] [address] [place] [address] October, Bipolar 1 disorder, mixed F3 1.60 [facility], [place] [address] [facility] [id number] [address] [place] [id number] October, Bipolar 1 disorder, mixed F3 1.60 [facility], [place] [address] [place] [id number] [address] [place] [address] October, Bipolar 1 disorder, mixed F3 1.60 [place] [address] [place] [id number] [address] [place] [address] October, Bipolar 1 disorder, mixed F3 1.60 [place] [address] [place] [id number] [address] [place] [phone] October, Bipolar 1 disorder, mixed F3 1.60 [place] [address] [address] October, Cervicalgia M54.2 and Bipola r 1 disorder, mixed F31.60 [place] [address] [address] October, Hypertension I10 ; Hyperlipi demia, unspecified hyperlipidemia type E78.5 and Family history of thyroid disease Z83.49 [place] [address] [address] October, [place] [address] [address] October, Hypertension I10 ; Hyperlipi demia, unspecified hyperlipidemia type E78.5 and Family history of thyroid problem Z83.49 [place] [address] [address] October, Bipolar 1 disorder, mixed F3 1.60 [place] [address] [address] Sep, Bipolar 1 disorder, mixed F3 1.60 [place] [address] [place] [id number] [address] [place] [address] Sep, Bipolar 1 disorder, mixed F3 1.60 [place] [address] [place] [id number] [place] [address] Sep, Bipolar 1 disorder, mixed F3 1.60 [place] [address] [place] [id number] [address] [place] [address] Sep, History of colon polyps Z86. 010 and Hematochezia K92.1 [facility], [place] [address] [place] [id number] [address] [place] [address] Sep, Major depressive disorder, r ecurrent episode, moderate F33.1 [facility], [place] [address] [facility] [id number] [address] [place] [address] Sep, Bipolar 1 disorder, mixed F3 1.60 [facility], [place] [address] [facility] [id number] [address] [place] [address] Aug, Hot flashes due to menopause N95.1 [facility], [place] [address] [facility] [id number] [address] [place] [address] Aug, Bipolar 1 disorder, mixed F3 1.60 [place] [address] [place] [id number] [address] [place] [address] Aug, [place] [address] [place] [id number] [address] [place] [address] Aug, Bipolar 1 disorder, mixed F3 1.60 [place] [address] [place] [id number] [address] [place] [address] Aug, Bipolar 1 disorder, mixed F3 1.60 [place] [address] [place] [id number] [address] [place] [address] Aug, Hot flashes due to menopause N95.1 ; Cervicalgia M54.2 and Ataxia R27.0 [facility], [place] [address] [facility] [id number] [address] [place] [address] Jul, Bipolar 1 disorder, mixed F3 1.60 [place] [address] [facility] [id number] [address] [place] [address] Jul, Bipolar 1 disorder, mixed F3 1.60 [facility], [place] [address] [facility] [id number] [address] [place] [address] Jul, Bipolar 1 disorder, mixed F3 1.60 [facility], [place] [address] [place] [id number] [address] [place] [id number] 13 Jul, 2016 Bipolar 1 disorder, mixed F3 1.60 [facility], [place] [address] Jul, Bipolar 1 disorder, mixed F3 1.60 [facility], [place] [address] [place] [id number] [address] [place] [address] 08 Jul, 2016 Cervicalgia M54.2 ; Tremor R 25.1 ; Hearing abnormally acute, unspecified laterality H93.239 ; Alopecia L65.9 ; Encounter for immunization Z23 and Family history of thyroid disease Z83.49 [place] [address] Jul, Bipolar 1 disorder, mixed F3 1.60 [place] [address] [place] [id number] Jun, [place] [address] [place] [address] Jun, Hearing disorder, unspecifie d laterality H93.299 [place] [address] [address] Jun, Bipolar 1 disorder, mixed F3 1.60 [facility], [place] [address] [place] [id number] [address] [place] [address] Jun, Bipolar 1 disorder, mixed F3 1.60 [place] [address] [place] [id number] Jun, Allergic rhinitis J30.9 [facility], [place] [address] [place] [id number] [address] [place] [address] Jun, Bipolar 1 disorder, mixed F3 1.60 [place] [address] [place] [id number] [address] [place], [place] [id number] Jun, Bipolar 1 disorder, mixed F3 1.60 [facility], [place] [address] [place] [id number] [address] [place] [address] Jun, Allergic rhinitis J30.9 [facility], [place] [address] [facility] [id number] [address] [place] [address] Jun, Allergic rhinitis J30.9 [facility], [place] [address] [facility] [id number] [address] [place] [address] Jun, Bipolar 1 disorder, mixed F3 1.60 [facility], [place] [address] [facility] [id number] [address] [place] [address] May, Bipolar 1 disorder, mixed F3 1.60 [facility], [place] [address] [id number] [address] [place] [address] May, Bipolar 1 disorder, mixed F3 1.60 [facility], [place] [address] [facility] [id number] [address] [place] [address] May, [facility], [place] [address] [facility] [id number] [address] [place] [address] May, Bipolar 1 disorder, mixed F3 1.60 [facility], [place] [address] [facility] [id number] [address] [place] [address] May, Bipolar 1 disorder, mixed F3 1.60 [facility], [place] [address] [facility] [id number] [address] [place] [address] May, [facility], [place] [address] [facility] [id number] [address] [place] [address] May, [facility], [place] [address] [place] [id number] [address] [place] [phone] May, [facility], [place] [address] [facility] [id number] [address] [place] [address] May, Abdominal pain, unspecified location R10.9 [facility], [place] [address] [facility] [id number] [address] [place] [address] May, [facility], [place] [address] [facility] [id number] [address] [place] [address] Apr, Hematuria R31.9 ; Ataxia R27 .0 and Hearing loss, unspecified laterality H91.90 [place] [address] [place] [address] Apr, Bipolar 1 disorder, mixed F3 1.60 [facility] [address] [place] [id number] [address] [place] [address] Apr, Acute effusion of both middl e ears H65.193 [place] [address] [place] [id number] [address] [place] [address] 10 Apr, 2016 Hematuria R31.9 and Pyelonep hritis N12 [place] [address] [address] Apr, [place] [address] [address] Mar, Bipolar 1 disorder, mixed F3 1.60 [place] [address] [address] Mar, [place] [address] [address] Mar, Bipolar 1 disorder, mixed F3 1.60 [place] [address] [address] Mar, Bipolar 1 disorder, mixed F3 1.60 [place] [address] [address] Mar, Encounter for immunization Z 23 and Gastritis without bleeding, unspecified chronicity, unspecified gastritis type K29.70 [place] [address] [place] [id number] [address] [place] [address] Mar, Bipolar 1 disorder, mixed F3 1.60 and Grief F43.20 [place] [address] [address] Mar, Gastritis without bleeding, unspecified chronicity, unspecified gastritis type K29.70 [place] [address] [address] Mar, Bipolar 1 disorder, mixed F3 1.60 [facility], [place] [address] [place] [id number] [address] [place] [address] Mar, Gastritis without bleeding, unspecified chronicity, unspecified gastritis type K29.70 [facility], [place] [address] [place] [id number] [address] [place] [address] Mar, [place] [address] [place] [address] Feb, Bipolar 1 disorder, mixed F3 1.60 [place] [address] [place] [id number] [place] [address] Feb, Bipolar 1 disorder, mixed F3 1.60 and Grief F43.20 [place] [address] [place] [id number] [place] [address] Feb, Gastritis without bleeding, unspecified chronicity, unspecified gastritis type K29.70 [place] [address] [address] Feb, Bipolar 1 disorder, mixed F3 1.60 [facility] [address] [place] [id number] [place] [address] 09 Feb, 2016 Gastroesophageal reflux dise ase, esophagitis presence not specified K21.9 [facility], [place] [address] [place] [id number] [address] [place] [address] Jan, Bipolar 1 disorder, mixed F3 1.60 [facility], [place] [address] [place] [id number] [address] [place] [address] Jan, Bipolar 1 disorder, mixed F3 1.60 and Unsteady gait R26.81 [place] [address] [place] [id number] [place] [address] Jan, Bipolar 1 disorder, mixed F3 1.60 [facility], [place] [address] [place] [id number] [address] [place] [address] Jan, Bipolar 1 disorder, mixed F3 1.60 and Other skilled nursing (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 Z79.899 [facility], [place] [address] [facility] [id number] [address] [place] [address] Jan, Bipolar 1 disorder, mixed F3 1.60 [facility], [place] [address] [facility] [id number] [address] [place] [address] Jan, Bipolar 1 disorder, mixed F3 1.60 [facility], [place] [address] [place] [id number] [address] [place] [address] Jan, Bipolar 1 disorder, mixed F3 1.60 ; Grief F43.20 and 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 [facility], [place] [address] [facility] [id number] [address] [place] [address] Jan, Bipolar 1 disorder, mixed F3 1.60 [place] [address] [place] [id number] [address] [place] [address] Dec, [place] [address] [place] [id number] [place] [address] Dec, Bipolar 1 disorder, mixed F3 1.60 ; Vitamin D deficiency, unspecified E55.9 ; H/O allergic rhinitis Z87.09 ; Other chronic pain G89.29 and Dorsalgia, unspecified M54.9 [place] [address] [place] [id number] [address] [place] [address] Dec, [place] [address] [place] [id number] [address] [place] [address] Dec, Bipolar 1 disorder, mixed F3 1.60 [facility], [place] [address] [place] [id number] [address] [place] [address] Dec, Major depressive disorder, r ecurrent episode, moderate F33.1 [place] [address] [place] [id number] [address] [place] [address] Dec, Major depressive disorder, r ecurrent episode, moderate F33.1 [place] [address] [place] [id number] [address] [place] [address] Nov, [place] [address] [facility] [id number] [address] [place] [address] Nov, Bipolar 1 disorder, mixed F3 1.60 [place] [address] [facility] [id number] [address] [place] [address] Nov, Major depressive disorder, r ecurrent episode, moderate F33.1 [place] [address] [facility] [id number] [address] [place] [address] Nov, Cervicalgia M54.2 ; Arthralg ia of hip, unspecified laterality M25.559 ; Allergic rhinitis J30.9 and Hormone replacement therapy Z79.890 [facility] [address] [facility] [id number] [address] [place] [address] Nov, Other seasonal allergic rhin itis J30.2 [place] [address] [facility] [id number] [address] [place] [address] October, Major depressive disorder, r ecurrent episode, moderate F33.1 [place] [address] [facility] [id number] [address] [place] [address] October, Major depressive disorder, r ecurrent episode, moderate F33.1 and Arthralgia of hip, unspecified laterality M25.559 [place] [address] [facility] [id number] [address] [place] [address] October, Grief F43.20 ; Hypertension I10 ; Hyperlipidemia, unspecified hyperlipidemia type E78.5 ; Other chronic pain G89.29 and Allergic rhinitis, unspecified allergic rhinitis type J30.9 [place] [address] [facility] [id number] [address] [place] [address] October, Major depressive disorder, r ecurrent episode, moderate F33.1 [place] [address] [facility] [id number] [address] [place] [address] Sep, Major depressive disorder, r ecurrent episode, moderate F33.1 [place] [address] [place] [id number] [address] [place] [address] Sep, [facility], [place] [address] [place] [address] Sep, Major depressive disorder, r ecurrent episode, moderate F33.1 [place] [address] [place] [address] Sep, Grief F43.20 [place] [address] [address] Aug, Major depressive disorder, r ecurrent episode, moderate F33.1 [place] [address] [address] Aug, Bipolar 1 disorder, mixed F3 1.60 [place] [address] [address] Aug, Allergic rhinitis J30.9 ; Ce rvicalgia M54.2 and Low back pain M54.5 [place] [address] [address] Aug, Major depressive disorder, r ecurrent episode, moderate F33.1 [facility] [address] [address] Aug, Sinusitis J32.9 and Tobacco 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 [place] [address] [address] Aug, [facility], [place] [address] [address] Aug, Depressive disorder, not els ewhere classified F32.9 ; Hormone replacement therapy Z79.[address] scan, head R93.0 [place] [address] [address] Aug, Major depressive disorder, r ecurrent episode, moderate F33.1 [facility], [place] [address] [place] [address] Jul, Major depressive disorder, r ecurrent episode, moderate F33.1 [facility], [place] [address] [id number] [address] [place] [address] Jul, Abdominal pain R10.9 and Hyp ertension I10 [facility], [place] [address] [id number] [address] [place] [address] Jul, [facility] [place] [address] [id number] [address] [place] [address] Jul, Major depressive disorder, r ecurrent episode, moderate F33.1 [facility] [place] [address] [id number] [address] [place] [address] Jul, [facility] [place] [address] [id number] [address] [place] [address] Jul, [facility], [place] [address] [facility] [id number] [address] [place] [address] Jun, [facility] [place] [address] [id number] [address] [place] [address] Jun, Depressive disorder, not els ewhere classified F32.9 [facility], [place] [address] [facility] [id number] [address] [place] [address] Jun, [facility] [place] [address] [id number] [address] [place] [address] Jun, [facility], [place] [address] [facility] [id number] [address] [place] [address] Jun, Arthralgia of hip, unspecifi ed laterality M25.559 ; Bruising, spontaneous R23.3 and Night sweats R61 [facility] [place] [address] [id number] [address] [place] [address] Jun, [facility], [place] [address] [facility] [id number] [address] [place] [address] Jun, [facility] [place] [address] [facility] [id number] [address] [place] [address] May, [facility] [place] [address] [id number] [address] [place] [address] May, Myalgia M79.1 and Screening, lipid Z13.220 [facility], [place] [address] [facility] [id number] [address] [place] [address] Apr, Status post cervical spinal fusion Z98.1 ; Fibromyalgia M79.7 and Unsteady gait R26.81 [facility], [place] [address] [id number] [address] [place] [address] Nov, [facility] [place] [address] [id number] [address] [place] [id number] Nov, [facility] [place] [address] [id number] [address] [place] [address] October, [facility] [place] [address] [facility] [id number] [address] [place] [id number] October, [facility], [place] [address] [facility] [id number] [address] [place] [id number] October, [facility], [place] [address] [facility] [id number] [address] [place] [id number] October, [facility], [place] [address] [facility] [id number] [address] [place] [id number] October, [facility], [place] [address] [facility] [id number] [address] [place] [id number] October, Dysuria 788.1 ; Nausea 787.0 2 and Urinary tract infection 599.0 [facility], [place] [address] [id number] [address] [place] [id number] Sep, [facility], [place] [address] [facility] [id number] [address] [place] [id number] Sep, [facility], [place] [address] [facility] [id number] [address] [place] [id number] Aug, [facility], [place] [address] [facility] [id number] [address] [place] [id number] 25 Aug, 2014 [facility] [address] [id number] [facility] [place] [id number] 24 Aug, 2014 [facility] [address] [id number] [facility] [place] [id number] 24 Aug, 2014 [facility] [address] [id number] [address] [place] [address], [place] [id number] 23 Aug, 2014 [facility] [address] [id number] [address] [place] [address], [place] [id number] 19 Aug, 2014 [facility] [address] [id number] [address] [place] [address], [place] [id number] 19 Aug, 2014 [facility] [address] [id number] [address] [place] [address], [place] [id number] 19 Aug, 2014 [facility] [address] [id number] [address] [place] [address], [place] [id number] 19 Aug, 2014 [facility] [address] [id number] [address] [place] [address], [place] [id number] 18 Aug, 2014 [facility] [address] [id number] [address] [place] [address], [place] [id number] 18 Aug, 2014 [facility] [address] [id number] [address] [place] [address], [place] [id number] 13 Aug, 2014 [facility] [address] [id number] [address] [place] [address], [place] [id number] 13 Aug, 2014 [facility] [address] [id number] [address] [place] [address], [place] [address] 11 Aug, 2014 [facility] [address] [id number] [address] [place] [address], [place] [address] 11 Aug, 2014 [facility] [address] [id number] [address] [place] [address], [place] [address] 06 Aug, 2014 [facility] [address] [id number] [address] [place] [address], [place] [address] 06 Aug, 2014 [facility] [address] [id number] [address] [place] [address], [place] [address] 05 Aug, 2014 [facility] [address] [id number] [address] [place] [address], [place] [address] 05 Aug, 2014 [facility] [address] [id number] [address] [place] [address], [place] [address] 04 Aug, 2014 [facility] [address] [id number] [address] [place] [address], [place] [address] Aug, 2014 [facility] [address] [id number] [address] [place] [address], [place] [address] Aug, [facility] [address] [id number] [address] [place] [address], [place] [address] Jul, 2014 [facility] [address] [id number] [address] [place] [address], [place] [address] Jul, 2014 [facility] [address] [id number] [address] [place] [address], [place] [address] Jul, 2014 [facility] [address] [id number] [address] [place] [address], [place] [address] Jul, [facility] [address] [id number] [address] [place] [address], [place] [address] Jul, [facility] [address] [id number] [address] [place] [address], [place] [address] Jul, [facility] [address] [id number] [address] [place] [address], [place] [address] Jul, 2014 [facility] [address] [id number] [address] [place] [address], [place] [address] Jul, 2014 [facility] [address] [id number] [address] [place] [address], [place] [address] Jul, 2014 [facility] [address] [id number] [address] [place] [address] Jul, 2014 [facility] [address] [id number] [address] [place] [address] Jul, 2014 [facility] [address] [id number] [address] [place] [address], [place] [address] Jul, [facility] [address] [id number] [address] [place] [address], [place] [address] Jul, [facility] [address] [id number] [address] [place] [address], [place] [address] Jul, [facility] [address] [id number] [address] [place] [address] Jun, [facility] [address] [id number] [address] [place] [address], [place] [address] Jun, [facility] [address] [id number] [address] [place] [address], [place] [address] Jun, [facility] [address] [id number] [address] [place] [address], [place] [address] Jun, [facility] [address] [id number] [address] [place] [address], [place] [address] Jun, [facility] [address] [id number] [address] [place] [address], [place] [address] Jun, [facility] [address] [id number] [address] [place] [address], [place] [address] May, [facility] [address] [id number] [address] [place] [address], [place] [address] May, [facility] [address] [id number] [address] [place] [address], [place] [address] May, [facility] [address] [id number] [address] [place] [address], [place] [address] May, [facility] [address] [id number] [address] [place] [address], [place] [address] May, [facility] [address] [id number] [address] [place] [address], [place] [address] May, [facility] [address] [id number] [address] [place] [address], [place] [address] Apr, [facility] [address] [id number] [address] [place] [address], [place] [address] Apr, [facility] [address] [id number] [address] [place] [address], [place] [address] Apr, [facility] [address] [id number] [address] [place] [address], [place] [address] Apr, [facility] [address] [id number] [address] [place] [address], [place] [address] Apr, [facility] [address] [id number] [address] [place] [address], [place] [address] Apr, [facility] [address] [id number] [address] [place] [address], [place] [address] Mar, [facility] [address] [id number] [address] [place] [address], [place] [address] Mar, [facility] [address] [id number] [address] [place] [address], [place] [address] Mar, [facility] [address] [id number] [address] [place] [address], [place] [address] Mar, [facility] [address] [id number] [address] [place] [address], [place] [address] Mar, [facility] [address] [id number] [address] [place] [address], [place] [address] Mar, [facility] [address] [id number] [address] [place] [address] Mar, [facility] [address] [id number] [address] [place] [address], [place] [address] Mar, [facility] [address] [id number] [address] [place] [address], [place] [address] Mar, [facility] [address] [id number] [address] [place] [address], [place] [address] Mar, [facility] [address] [id number] [address] [place] [address], [place] [address] Mar, [facility] [address] [id number] [address] [place] [address], [place] [address] Mar, [facility] [address] [id number] [address] [place] [address], [place] [address] 30 Feb, 2014 [facility] [address] [id number] [address] [place] [address], [place] [address] Feb, [facility] [address] [id number] [address] [place] [address], [place] [address] Feb, [facility] [address] [id number] [address] [place] [address], [place] [address] Feb, [facility] [address] [id number] [address] [place] [address], [place] [address] Feb, [facility] [address] [id number] [address] [place] [address], [place] [address] Feb, [facility] [address] [id number] [address] [place] [address], [place] [address] Feb, [facility] [address] [id number] [address] [place] [address], [place] [address] Jan, [facility] [address] [id number] [address] [place] [address], [place] [address] Jan, [facility] [address] [id number] [address] [place] [address], [place] [address] Jan, [facility] [address] [id number] [address] [place] [address], [place] [address] Dec, [facility] [address] [id number] [address] [place] [address], [place] [address] Dec, [facility] [address] [id number] [address] [place] [address], [place] [address] Dec, [facility] [address] [id number] [address] [place] [address], [place] [address] Dec, [facility] [address] [id number] [address] [place] [address], [place] [address] Sep, [facility] [address] [id number] [address] [place] [address], [place] [address] Sep, [facility] [address] [id number] [address] [place] [address], [place] [address] Sep, [facility] [address] [id number] [address] [place] [address], [place] [address] Sep, [facility] [address] [id number] [address] [place] [address], [place] [address] Sep, [facility] [address] [id number] [address] [place] [address], [place] [address] Sep, [facility] [address] [id number] [address] [place] [address], [place] [address] Sep, [facility] [address] [id number] [address] [place] [address], [place] [address] Sep, [facility] [address] [id number] [address] [place] [address], [place] [address] Aug, [facility] [address] [id number] [address] [place] [address], [place] [address] Aug, [facility] [address] [id number] [address] [place] [address], [place] [address] May, [facility] [address] [id number] [address] [place] [address], [place] [address] May, [facility] [address] [id number] [address] [place] [address], [place] [address] Apr, [facility] [address] [id number] [address] [place] [address], [place] [address] Apr, [facility] [address] [id number] [address] [place] [address], [place] [address] Apr, [facility] [address] [id number] [address] [place] [address], [place] [address] Apr, [facility] [address] [id number] [address] [place] [address], [place] [address] Apr, [facility] [address] [id number] [address] [place] [address], [place] [address] Apr, [facility] [address] [id number] [address] [place] [address], [place] [address] 18 May, 2012 [facility] [address] [id number] [address] [place] [address], [place] [address] 18 May, 2012 [facility] [address] [id number] [address] [place] [address], [place] [address] 15 May, 2012 [facility] [address] [id number] [address] [place] [address], [place] [address] 15 May, 2012 [facility] [address] [id number] [address] [place] [address], [place] [address] 13 May, 2012 [facility] [address] [id number] [address] [place] [address], [place] [address] 13 May, 2012 [facility] [address] [id number] [address] [place] [address], [place] [address] 13 Apr, 2012 [facility] [address] [id number] [address] [place] [address], [place] [address] 13 Apr, 2012 [facility] [address] [id number] [address] [place] [address], [place] [address] Apr, [facility] [address] [id number] [address] [place] [address], [place] [address] Apr, [facility] [address] [id number] [address] [place] [address], [place] [address] Apr, [facility] [address] [id number] [address] [place] [address], [place] [address] 08 Apr, 2012 [facility] [address] [id number] [address] [place] [address], [place] [address] Apr, [facility] [address] [id number] [address] [place] [address], [place] [address] Apr, [facility] [address] [id number] [address] [place] [address], [place] [address] Apr, [facility] [address] [id number] [address] [place] [address], [place] [address] Apr, [facility] [address] [id number] [address] [place] [address], [place] [address] Mar, [facility] [address] [id number] [address] [place] [address], [place] [address] Mar, [facility] [address] [id number] [address] [place] [address] Mar, [facility] [address] [id number] [address] [place] [address], [place] [address] Mar, [facility] [address] [id number] [address] [place] [address] Mar, [facility] [address] [id number] [address] [place] [address], [place] [address] Mar, [facility] [address] [id number] [address] [place] [address] Mar, [facility] [address] [id number] [address] [place] [address] Mar, [facility] [address] [id number] [address] [place] [address] Mar, [facility] [address] [id number] [address] [place] [address], [place] [address] 25 Feb, 2012 [facility] [address] [id number] [address] [place] [address] 16 Sep2011 [facility] [address] [id number] [address] [place] [address] 11 Feb, 2012 [facility] [address] [id number] [address] [place] [address], [place] [address] Jan, [facility] [address] [id number] [address] [place] [address], [place] [address] Jan, [facility] [address] [id number] [address] [place] [address], [place] [address] Jan, [facility] [address] [id number] [address] [place] [address], [place] [address] Jan, [facility] [address] [id number] [address] [place] [address], [place] [address] Jan, [facility] [address] [id number] [address] [place] [address], [place] [address] Jan, [facility] [address] [id number] [address] [place] [address], [place] [address] 16 Jan, 2012 [facility] [address] [id number] [address] [place] [address], [place] [address] Jan, [facility] [address] [id number] [address] [place] [address], [place] [address] Jan, [facility] [address] [id number] [address] [place] [address], [place] [address] Jan, [facility] [address] [id number] [address] [place] [address], [place] [address] Dec, [facility] [address] [id number] [address] [place] [address], [place] [address] Dec, [facility] [address] [id number] [address] [place] [address], [place] [address] Dec, [facility] [address] [id number] [address] [place] [address], [place] [address] Dec, [facility] [address] [id number] [address] [place] [address], [place] [address] Nov, [facility] [address] [id number] [address] [place] [address], [place] [address] 08 Nov, 2011 [facility] [place] [address] [id number] [address] [place] [address] Nov, [facility] [place] [address] [id number] [address] [place] [address] October, [facility] [place] [address] [id number] [address] [place] [address] October, [facility] [place] [address] [id number] [address] [place] [address] October, [facility] [place] [address] [id number] [address] [place] [address], [place] [address] October, [facility] [place] [address] [id number] [address] [place] [address] October, [facility] [place] [address] [id number] [address] [place] [address] October, [facility] [place] [address] [id number] [address] [place] [address] Aug, [facility] [place] [address] [id number] [address] [place] [address] Mar, [facility] [place] [address] [id number] [address] [place] [address] Nov, [facility] [place] [address] [id number] [address] [place] [address] May, [facility] [place] [address] [id number] [address] [place] [address] May, [facility] [place] [address] [id number] [address] [place] [address] Apr, [facility] [place] [address] [id number] [address] [place] [address] Mar, [facility] [place] [address] [id number] [address] [place] [address] Mar, IMMUNIZATIONS No Known Immunizations SOCIAL HISTORY Never Assessed REASON FOR VISIT PLAN OF CARE VITAL SIGNS Height 64 in 2014-08-18 Temperature 98.6 degrees Fahrenheit 2014-08-18 Heart Rate 100 bpm 2014-08-18 Respiratory Rate 22 2014-08-18 Blood pressure systolic 162 mmHg 2014-08-18 Blood pressure diastolic 88 mmHg 2014-08-18 MEDICATIONS Unknown Medications RESULTS No Results PROCEDURES Procedure Date Ordered Result Body Site THER/PROPH/DIAG INJ, SC/IM August 18, 2014 INJ KETOROLAC TROMETHAMINE 15 MG August 18, 2014 PHENERGAN 12.5 MG August 18, 2014 INSTRUCTIONS MEDICATIONS ADMINISTERED No Known Medications MEDICAL (GENERAL) HISTORY Type Description Date Medical History Severe spinal stenosis [facility] cervical spine CT and MRI done 10/2014 at [facility] with Neurosurgery at Medical History Migraine BEAR [...]
--- OUTSIDE RECORDS SUMMARY | 2019-06-19 05:16 | XMS REPORT ---
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 Name Role Phone NAHOMY HANCOCK Unavailable PROBLEMS Type Condition ICD9-CM Code QDH33-GP Code Onset Dates Condition S tatus SNOMED Code Problem Age-related osteoporosis without current pathological fracture M81.0 Active 78491487 Problem Sensorineural hearing loss (SNHL) of both ears H90 .3 Active 344306314 Problem Abnormal CT scan, head R93.0 Active 407809116 Problem Arthralgia of hip, unspecified laterality M25.559 Active 10192406 Problem Bruising, spontaneous R23.3 Active 577410983 Problem Hypertension I10 Active 9132954 3 Problem Night sweats R61 Active 9966024 0 Problem Imbalance R26.89 Active 982437533 Problem Hammer toe of right foot M20.41 Activ e 250315431 Problem Hormone replacement therapy Z79.890 Ac tive 754959166 Problem Bipolar 1 disorder, mixed F31.60 Acti ve 30660066 Problem Gastritis without bleeding, unspecified chronicity, unspecified gastritis type K29.70 Active 408258813 Problem Ataxia R27.0 Active 48823055 Problem Hearing loss, unspecified laterality H91.90 Active 29808714 Problem History of colon polyps Z86.010 Active 612511751 Problem Allergic rhinitis J30.9 Active 61 009398 Problem Hematuria, unspecified type R31.9 Ac tive 40096279 Problem Generalized anxiety disorder F41.1 A ctive 18698758 Problem Major depressive disorder, recurrent episode, moderate F33.1 Active 620798356 Problem Fibromyalgia M79.7 Active 6578316 7 Problem Bladder spasm N32.89 Active 116966 006 Problem Tobacco use disorder F17.200 Active 825386249 Problem Other chronic pain G89.29 Active 8 4930813 Problem Post menopausal syndrome N95.1 Activ e 174609176 Problem Grief F43.20 Active 51288586 Problem Hyperlipidemia, unspecified hyperlipidemia type E7 8.5 Active 61486913 Problem Acute left-sided low back pain with left-sided sciatica M54.42 Active 109619687 Problem Sciatica of left side M54.32 Active 46829092 Problem Plantar wart of right foot B07.0 Act mitchell [id number] Problem Slow transit constipation K59.01 Acti ve 45339334 ALLERGIES No Information ENCOUNTERS Encounter Location Date Diagnosis [facility] [address] [place] [id number] [place] [address] Jan, [facility] [address] [facility] [id number] [address] [place] [address] Dec, [facility] [address] [id number] [place] [address] Dec, [facility] [address] [place] [id number] [place] [address] Dec, [facility] [address] [place] [id number] [place] [address] Nov, Bipolar 1 disorder, mixed F3 1.60 [facility] [address] [id number] [place] [address] Nov, Bipolar 1 disorder, mixed F3 1.60 ; Generalized anxiety disorder F41.1 ; Tobacco use disorder F17.200 and Other custom bow maker (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 Z79.899 [facility] [address] [id number] [place] [address] Nov, [facility] [address] [place] [id number] [place] [address] Nov, Bipolar 1 disorder, mixed F3 1.60 [facility] [address] [place] [id number] [place] [address] October, Bipolar 1 disorder, mixed F3 1.60 [facility] [address] [place] [id number] [place] [address] October, Bipolar 1 disorder, mixed F3 1.60 [place] [address] [place] [address] October, [place] [address] [address] October, Bipolar 1 disorder, mixed F3 1.60 ; Generalized anxiety disorder F41.1 and Tobacco use disorder F17.200 [place] [address] [address] Sep, [place] [address] [place] [id number] [place] [address] Sep, Encounter for Medicare annua wellness exam Z00.00 ; Major depressive disorder, recurrent episode, moderate F33.1 ; Allergic rhinitis J30.9 ; Bipolar 1 disorder, mixed F31.60 ; Fibromyalgia M79.7 ; Hyperlipidemia, unspecified hyperlipidemia type E78.5 ; Hormone replacement therapy Z79.890 ; Encounter for screening for lung cancer Z12.2 and Tobacco use disorder F17.200 [place] [address] [place] [id number] [place] [address] Sep, Bipolar 1 disorder, mixed F3 1.60 [place] [address] [address] Sep, Other chronic pain G89.29 ; Hyperlipidemia, unspecified hyperlipidemia type E78.5 ; Breast cancer screening Z12.31 and Post menopausal syndrome N95.1 [place] [address] [place] [address] Sep, Bipolar 1 disorder, mixed F3 1.60 [place] [address] [place] [id number] [place] [address] Sep, Bipolar 1 disorder, mixed F3 1.60 ; Generalized anxiety disorder F41.1 and Tobacco use disorder F17.200 [place] [address] [place] [id number] [place] [address] Sep, Gastritis without bleeding, unspecified chronicity, unspecified gastritis type K29.70 [place] [address] [facility] [id number] [address] [place] [address] 08 Sep, 2018 Exercise counseling Z71.82 [place] [address] [facility] [id number] [address] [place] [address] Aug, Exercise counseling Z71.82 [place] [address] [place] [id number] [place] [address] Aug, Bipolar 1 disorder, mixed F3 1.60 [place] [address] [facility] [id number] [address] [place] [address] Aug, Exercise counseling Z71.82 [place] [address] [place] [id number] [place] [address] Aug, Bipolar 1 disorder, mixed F3 1.60 [place] [address] [place] [id number] [place] [address] Aug, Gastritis without bleeding, unspecified chronicity, unspecified gastritis type K29.70 ; Tobacco abuse Z72.0 ; Generalized anxiety disorder F41.1 and Weight gain R63.5 [place] [address] [facility] [id number] [address] [place] [address] Aug, Bipolar 1 disorder, mixed F3 1.60 ; Generalized anxiety disorder F41.1 and Tobacco use disorder F17.200 [place] [address] [place] [id number] [place] [address] Jul, Bipolar 1 disorder, mixed F3 1.60 [place] [address] [facility] [id number] [address] [place] [address] Jul, [place] [address] [facility] [id number] [address] [place] [address] Jul, Bipolar 1 disorder, mixed F3 1.60 [place] [address] [facility] [id number] [address] [place] [address] 11 Jul, 2018 Allergic rhinitis J30.9 ; Ma darion depressive disorder, recurrent episode, moderate F33.1 and Tobacco 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 [facility] [address] [id number] [address] [place] [address] Jun, [facility] [address] [id number] [address] [place] [address] Jun, [facility] [address] [facility] [id number] [address] [place] [address] Jun, Bipolar 1 disorder, mixed F3 1.60 [facility] [address] [facility] [id number] [address] [place] [address] Jun, Bipolar 1 disorder, mixed F3 1.60 [facility] [address] [id number] [address] [place] [address] Jun, Bipolar 1 disorder, mixed F3 1.60 [facility] [address] [facility] [id number] [address] [place] [address] Jun, Generalized anxiety disorder F41.1 ; Tobacco abuse Z72.0 and Major depressive disorder, recurrent episode, moderate F33.1 [facility] [address] [facility] [id number] [address] [place] [address] May, Bipolar 1 disorder, mixed F3 1.60 [facility] [address] [facility] [id number] [address] [place] [address] May, Bipolar 1 disorder, mixed F3 1.60 and Generalized anxiety disorder F41.1 [facility] [address] [facility] [id number] [address] [place] [address] May, Bipolar 1 disorder, mixed F3 1.60 [facility] [address] [facility] [id number] [address] [place] [address] May, Allergic rhinitis J30.9 [facility] [address] [facility] [id number] [address] [place] [address] May, Bipolar 1 disorder, mixed F3 1.60 [facility] [address] [facility] [id number] [address] [place] [address] May, [facility] [address] [place] [id number] [place] [address] Apr, Allergic rhinitis J30.9 ; Dy sfunction of both eustachian tubes H69.83 ; History of bladder surgery Z98.890 and Cervicalgia M54.2 [facility] [address] [id number] [place] [address] Mar, Bipolar 1 disorder, mixed F3 1.60 [place] [address] [address] Mar, [place] [address] [address] Mar, Slow transit constipation K5 9.01 ; Encounter for immunization Z23 and Generalized anxiety disorder F41.1 [place] [address] [place] [id number] [place] [address] 27 Feb, 2018 Bipolar 1 disorder, mixed F3 1.60 [place] [address] [place] [address] 26 Feb, 2018 Allergic rhinitis J30.9 [facility] [address] [address] [id number] [place] [address] 24 Feb, 2018 Bipolar 1 disorder, mixed F3 1.60 [place] [address] [place] [id number] [place] [address] 20 Feb, 2018 Bipolar 1 disorder, mixed F3 1.60 and Generalized anxiety disorder F41.1 [place] [address] [place] [id number] [place] [address] 13 Feb, 2018 Bipolar 1 disorder, mixed F3 1.60 [place] [address] [place] [id number] [place] [address] 11 Feb, 2018 Allergic rhinitis J30.9 [facility] [address] [id number] [place] [address] 05 Feb, 2018 [facility] [address] [id number] [place] [address] Jan, Bipolar 1 disorder, mixed F3 1.60 [facility] [address] [id number] [place] [address] Jan, Low back pain M54.5 ; Hyperl ipidemia, unspecified hyperlipidemia type E78.5 and Bipolar 1 disorder, mixed F31.60 [facility] [address] [id number] [place] [address] Jan, Bipolar 1 disorder, mixed F3 1.60 [facility] [address] [place] [id number] [place], [place] [address] Jan, Bipolar 1 disorder, mixed F3 1.60 [facility] [address] [place] [id number] [place] [address] Jan, Bipolar 1 disorder, mixed F3 1.60 [facility] [address] [place] [address] [id number] [place] [address] Jan, Bipolar 1 disorder, mixed F3 1.60 [facility] [address] [id number] [place] [address] Dec, Bipolar 1 disorder, mixed F3 1.60 ; Generalized anxiety disorder F41.1 and Other custom bow maker (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 Z79.899 [facility] [address] [place] [id number] [place] [address] Dec, Other residential (current) dr ug therapy Z79.899 [facility] [address] [place] [id number] [place] [address] Dec, Bipolar 1 disorder, mixed F3 1.60 [facility] [address] [id number] [place] [address] Dec, Bipolar 1 disorder, mixed F3 1.60 [facility] [address] [place] [id number] [place], [place] [address] Nov, Bipolar 1 disorder, mixed F3 1.60 [facility] [address] [id number] [place] [address] Nov, Bipolar 1 disorder, mixed F3 1.60 [place] [address] [place] [id number] [place] [address] 13 Nov, 2017 Bipolar 1 disorder, mixed F3 1.60 [place] [address] [facility] [id number] [address] [place] [address] Nov, Allergic rhinitis J30.9 [facility] [address] [place] [address] Nov, Allergic rhinitis J30.9 [place] [address] [place] [id number] [place] [address] Nov, [place] [address] [address] Nov, Bipolar 1 disorder, mixed F3 1.60 [place] [address] [address] Nov, Fibromyalgia M79.7 and Aller gic rhinitis J30.9 [place] [address] [place] [address] October, Bipolar 1 disorder, mixed F3 1.60 [facility] [place] [address] [address] October, Acute nasopharyngitis J00 [facility] [place] [address] [address] October, Bitten or stung by nonvenomo us insect and other nonvenomous arthropods, initial encounter W57.XXXA and Insect bite (nonvenomous) of abdominal wall, initial encounter S30.861A [place] [address] [address] October, Insect bite (nonvenomous) of abdominal wall, initial encounter S30.861A ; Bitten or stung by nonvenomous insect and other nonvenomous arthropods, initial encounter W57.XXXA ; Allergic rhinitis J30.9 and Low back pain M54.5 [place] [address] [id number] [address] [place] [address] October, Bipolar 1 disorder, mixed F3 1.60 [facility] [address] [id number] [address] [place] [address] October, [facility] [address] [id number] [address] [place] [address] October, [facility] [address] [id number] [address] [place] [address] October, Bipolar 1 disorder, mixed F3 1.60 [facility] [address] [id number] [address] [place] [address] Sep, Bipolar 1 disorder, mixed F3 1.60 [facility] [address] [facility] [id number] [address] [place] [address] Sep, Other chronic pain G89.29 [facility] [address] [id number] [address] [place] [address] Sep, [facility] [address] [id number] [address] [place] [address] Sep, Bipolar 1 disorder, mixed F3 1.60 [facility] [address] [facility] [id number] [address] [place] [address] Sep, Allergic rhinitis J30.9 and Sciatica of left side M54.32 [facility] [address] [facility] [id number] [address] [place] [address] Sep, Bipolar 1 disorder, mixed F3 1.60 [facility] [address] [id number] [address] [place] [address] Sep, Bipolar 1 disorder, mixed F3 1.60 and Generalized anxiety disorder F41.1 [facility] [address] [facility] [id number] [address] [place] [address] Aug, [facility] [address] [facility] [id number] [address] [place] [address] Aug, Bipolar 1 disorder, mixed F3 1.60 [facility] [address] [id number] [address] [place] [address] Aug, Bipolar 1 disorder, mixed F3 1.60 [facility] [address] [facility] [id number] [address] [place] [address] Aug, [facility] [address] [facility] [id number] [address] [place] [address] Aug, Generalized anxiety disorder F41.1 [facility] [address] [facility] [id number] [address] [place] [address] Aug, Bipolar 1 disorder, mixed F3 1.60 [facility] [address] [facility] [id number] [address] [place] [address] Aug, Plantar wart of right foot B 07.0 [facility] [address] [facility] [id number] [address] [place] [address] Aug, Bipolar 1 disorder, mixed F3 1.60 [facility] [address] [facility] [id number] [address] [place] [address] Jul, Bipolar 1 disorder, mixed F3 1.60 [facility] [address] [facility] [id number] [address] [place] [address] Jul, [facility] [address] [facility] [id number] [address] [place] [address] 14 Jul, 2017 Bipolar 1 disorder, mixed F3 1.60 [facility] [address] [facility] [id number] [address] [place] [address] Jul, Generalized anxiety disorder F41.1 [facility] [address] [facility] [id number] [address] [place] [address] Jul, Bipolar 1 disorder, mixed F3 1.60 [facility] [address] [facility] [id number] [address] [place] [address] 07 Jul, 2017 Acute left-sided low back pa in with left-sided sciatica M54.42 [facility] [address] [address] Jul, Coccydynia M53.3 [place] [address] [address] Jun, Bipolar 1 disorder, mixed F3 1.60 [facility] [address] [address] Jun, Acute nasopharyngitis J00 [place] [address] [address] Jun, Bipolar 1 disorder, mixed F3 1.60 [place] [address] [address] Jun, Fibromyalgia M79.7 [place] [address] [address] Jun, Bipolar 1 disorder, mixed F3 1.60 [place] [address] [address] Jun, Fibromyalgia M79.7 and Bipol ar 1 disorder, mixed F31.60 [place] [address] [address] May, Bipolar 1 disorder, mixed F3 1.60 ; Generalized anxiety disorder F41.1 and Other custom bow maker (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 Z79.899 [place] [address] [address] May, Bipolar 1 disorder, mixed F3 1.60 [facility] [address] [address] May, Cough R05 and Body aches R52 [facility] [address] [address] May, Bladder spasm N32.89 and Acu te cystitis without hematuria N30.00 [place] [address] [address] 07 May, 2017 Bipolar 1 disorder, mixed F3 1.60 [facility] [address] [place] [address] 30 Apr, 2017 [facility] [address] Apr, Major depressive disorder, r ecurrent episode, moderate F33.1 and Encounter for immunization Z23 [facility] [address] [place] [address] Apr, Bipolar 1 disorder, mixed F3 1.60 [facility] [address] Apr, Bipolar 1 disorder, mixed F3 1.60 [place] [address] 16 Apr, 2017 Bipolar 1 disorder, mixed F3 1.60 [facility] [address] [address] Apr, Yeast vaginitis B37.3 [facility] [address] [address] 09 Apr, 2017 Bipolar 1 disorder, mixed F3 1.60 [facility] [address] [place] [id number] [place] [address] 07 Apr, 2017 Cellulitis L03[address] for immunization Z23 [facility] [address] [place] [id number] [place] [address] Apr, Bipolar 1 disorder, mixed F3 1.60 [facility] [address] [address] Mar, Bipolar 1 disorder, mixed F3 1.60 [facility] [address] [address] Mar, Bipolar 1 disorder, mixed F3 1.60 [facility] [address] [address] Mar, Imbalance R26.89 [address] Encount er for immunization Z23 [place] [address] [place] [address] Mar, Generalized anxiety disorder F41.1 [place] [address] [place] [id number] [place] [address] Mar, Bipolar 1 disorder, mixed F3 1.60 [place] [address] [place] [id number] [place] [address] Mar, Generalized anxiety disorder F41.1 [place] [address] [place] [id number] [place] [address] Mar, Bipolar 1 disorder, mixed F3 1.60 [place] [address] [place] [id number] [place] [address] Mar, Bipolar 1 disorder, mixed F3 1.60 [place] [address] [place] [id number] [place] [address] Feb, Bipolar 1 disorder, mixed F3 1.60 [place] [address] [address] Feb, Bipolar 1 disorder, mixed F3 1.60 and Generalized anxiety disorder F41.1 [place] [address] [place] [id number] [place] [address] Feb, Gastritis without bleeding, unspecified chronicity, unspecified gastritis type K29.70 ; Hammer toe of right foot M20.41 and Other viral warts B07.8 [place] [address] [address] [place] [id number] [address] [place] [id number] Feb, Bipolar 1 disorder, mixed F3 1.60 [place] [address] [address] [place] [id number] [address] [place] [id number] Feb, Bipolar 1 disorder, mixed F3 1.60 [place] [address] [address] [place] [id number] [address] [place] [id number] 05 Feb, 2017 Bipolar 1 disorder, mixed F3 1.60 [facility] [address] [facility] [id number] [address] [place] [phone] Jan, Encounter for screening mamm ogram for breast cancer Z12.31 ; Other viral warts B07.8 and Allergic rhinitis J30.9 [facility] [address] [facility] [id number] [address] [place] [id number] Jan, Bipolar 1 disorder, mixed F3 1.60 [facility] [address] [facility] [id number] [address] [place] [id number] Jan, Bipolar 1 disorder, mixed F3 1.60 [place] [address] [address] [facility] [id number] [address] [place] [id number] Jan, [facility] [address] [facility] [id number] [address] [place] [id number] Jan, Bipolar 1 disorder, mixed F3 1.60 [place] [address] [address] [facility] [id number] [address] [place] [id number] Jan, Bipolar 1 disorder, mixed F3 1.60 [facility] [address] [facility] [id number] [address] [place] [id number] Jan, Allergic rhinitis J30.9 ; He maturia R31.9 and Colon cancer screening Z12.11 [facility] [address] [facility] [id number] [address] [place] [id number] Dec, Bipolar 1 disorder, mixed F3 1.60 [facility] [address] [facility] [id number] [address] [place] [id number] Dec, Bipolar 1 disorder, mixed F3 1.60 ; Generalized anxiety disorder F41.1 and Other residential (current) drug therapy Z79.899 [facility] [address] [facility] [facility] [id number] [address] [place] [address] Dec, Bipolar 1 disorder, mixed F3 1.60 [facility] [address] [facility] [id number] [address] [place] [address] Dec, Bipolar 1 disorder, mixed F3 1.60 [facility] [address] [facility] [id number] [address] [place] [address] Dec, Bipolar 1 disorder, mixed F3 1.60 [facility] [address] [facility] [id number] [address] [place] [address] Dec, Low back pain M54.5 and Recu rrent urinary tract infection N39.0 [facility] [address] [facility] [id number] [address] [place] [address] Nov, Bipolar 1 disorder, mixed F3 1.60 [facility] [address] [facility] [id number] [address] [place] [address] Nov, Bipolar 1 disorder, mixed F3 1.60 [place] [address] [place] [id number] [address] [place] [address] Nov, Bipolar 1 disorder, mixed F3 1.60 [facility] [address] [place] [id number] [address] [place] [address] Nov, Bipolar 1 disorder, mixed F3 1.60 [facility] [address] [facility] [id number] [address] [place] [address] Nov, [place] [address] [place] [id number] [address] [place] [address] Nov, Anesthesia of skin R20.0 ; F requent UTI N39.0 ; Tobacco abuse Z72.0 and Colon cancer screening Z12.11 [facility] [address] [facility] [id number] [address] [place] [address] Nov, Bipolar 1 disorder, mixed F3 1.60 [facility] [address] [facility] [id number] [address] [place] [address] October, Bipolar 1 disorder, mixed F3 1.60 [facility] [address] [facility] [id number] [address] [place] [address] October, Bipolar 1 disorder, mixed F3 1.60 [facility] [address] [place] [id number] [address] [place] [address] October, Bipolar 1 disorder, mixed F3 1.60 [place] [address] [place] [id number] [address] [place] [address] October, Bipolar 1 disorder, mixed F3 1.60 [place] [address] [place] [id number] [address] [place] [address] October, Bipolar 1 disorder, mixed F3 1.60 [place] [address] [address] October, Cervicalgia M54.2 and Bipola r 1 disorder, mixed F31.60 [place] [address] [address] October, Hypertension I10 ; Hyperlipi demia, unspecified hyperlipidemia type E78.5 and Family history of thyroid disease Z83.49 [place] [address] [address] October, [place] [address] [address] October, Hypertension I10 ; Hyperlipi demia, unspecified hyperlipidemia type E78.5 and Family history of thyroid problem Z83.49 [place] [address] [address] October, Bipolar 1 disorder, mixed F3 1.60 [place] [address] [address] Sep, Bipolar 1 disorder, mixed F3 1.60 [place] [address] [place] [id number] [address] [place] [address] Sep, Bipolar 1 disorder, mixed F3 1.60 [place] [address] [place] [id number] [place] [address] Sep, Bipolar 1 disorder, mixed F3 1.60 [place] [address] [place] [id number] [address] [place] [address] Sep, History of colon polyps Z86. 010 and Hematochezia K92.1 [facility] [address] [place] [id number] [address] [place] [address] Sep, Major depressive disorder, r ecurrent episode, moderate F33.1 [facility] [address] [facility] [id number] [address] [place] [address] Sep, Bipolar 1 disorder, mixed F3 1.60 [facility] [address] [facility] [id number] [address] [place] [address] Aug, Hot flashes due to menopause N95.1 [facility] [address] [facility] [id number] [address] [place] [address] Aug, Bipolar 1 disorder, mixed F3 1.60 [place] [address] [place] [id number] [address] [place] [address] Aug, [place] [address] [place] [id number] [address] [place] [address] Aug, Bipolar 1 disorder, mixed F3 1.60 [place] [address] [place] [id number] [address] [place] [address] Aug, Bipolar 1 disorder, mixed F3 1.60 [place] [address] [place] [id number] [address] [place] [address] Aug, Hot flashes due to menopause N95.1 ; Cervicalgia M54.2 and Ataxia R27.0 [facility] [address] [facility] [id number] [address] [place] [address] Jul, Bipolar 1 disorder, mixed F3 1.60 [place] [address] [facility] [id number] [address] [place] [address] Jul, Bipolar 1 disorder, mixed F3 1.60 [facility] [address] [facility] [id number] [address] [place] [address] Jul, Bipolar 1 disorder, mixed F3 1.60 [facility] [address] [place] [id number] [address] [place] [address] 13 Jul, 2016 Bipolar 1 disorder, mixed F3 1.60 [facility] [address] Jul, Bipolar 1 disorder, mixed F3 1.60 [facility] [address] [place] [id number] [address] [place], [place] [address] 08 Jul, 2016 Cervicalgia M54.2 ; Tremor R 25.1 ; Hearing abnormally acute, unspecified laterality H93.239 ; Alopecia L65.9 ; Encounter for immunization Z23 and Family history of thyroid disease Z83.49 [place] [address] Jul, Bipolar 1 disorder, mixed F3 1.60 [place] [address] [place] [address] Jun, [place] [address] [place] [address] Jun, Hearing disorder, unspecifie d laterality H93.299 [place] [address] [address] Jun, Bipolar 1 disorder, mixed F3 1.60 [facility] [address] [place] [id number] [address] [place] [address] Jun, Bipolar 1 disorder, mixed F3 1.60 [place] [address] [place] [address] Jun, Allergic rhinitis J30.9 [facility] [address] [place] [id number] [address] [place] [address] Jun, Bipolar 1 disorder, mixed F3 1.60 [place] [address] [place] [id number] [address] [place], [place] [address] Jun, Bipolar 1 disorder, mixed F3 1.60 [facility] [address] [place] [id number] [address] [place] [address] Jun, Allergic rhinitis J30.9 [facility] [address] [facility] [id number] [address] [place] [address] Jun, Allergic rhinitis J30.9 [facility] [address] [facility] [id number] [address] [place] [address] Jun, Bipolar 1 disorder, mixed F3 1.60 [facility] [address] [facility] [id number] [address] [place] [address] May, Bipolar 1 disorder, mixed F3 1.60 [facility] [address] [id number] [address] [place] [address] May, Bipolar 1 disorder, mixed F3 1.60 [facility] [address] [facility] [id number] [address] [place] [address] May, [facility] [address] [facility] [id number] [address] [place] [address] May, Bipolar 1 disorder, mixed F3 1.60 [facility] [address] [facility] [id number] [address] [place] [address] May, Bipolar 1 disorder, mixed F3 1.60 [facility] [address] [facility] [id number] [address] [place] [address] May, [facility] [address] [facility] [id number] [address] [place] [address] May, [facility] [address] [place] [id number] [address] [place] [address] May, [facility] [address] [facility] [id number] [address] [place] [address] May, Abdominal pain, unspecified location R10.9 [facility] [address] [facility] [id number] [address] [place] [address] May, [facility] [address] [facility] [id number] [address] [place] [address] Apr, Hematuria R31.9 ; Ataxia R27 .0 and Hearing loss, unspecified laterality H91.90 [place] [address] [place] [address] Apr, Bipolar 1 disorder, mixed F3 1.60 [facility] [address] [place] [id number] [address] [place] [address] Apr, Acute effusion of both middl e ears H65.193 [place] [address] [place] [id number] [address] [place] [address] 10 Apr, 2016 Hematuria R31.9 and Pyelonep hritis N12 [place] [address] [address] Apr, [place] [address] [address] Mar, Bipolar 1 disorder, mixed F3 1.60 [place] [address] [address] Mar, [place] [address] [address] Mar, Bipolar 1 disorder, mixed F3 1.60 [place] [address] [address] Mar, Bipolar 1 disorder, mixed F3 1.60 [place] [address] [address] Mar, Encounter for immunization Z 23 and Gastritis without bleeding, unspecified chronicity, unspecified gastritis type K29.70 [place] [address] [place] [id number] [address] [place] [address] Mar, Bipolar 1 disorder, mixed F3 1.60 and Grief F43.20 [place] [address] [address] Mar, Gastritis without bleeding, unspecified chronicity, unspecified gastritis type K29.70 [place] [address] [address] Mar, Bipolar 1 disorder, mixed F3 1.60 [facility] [address] [place] [id number] [address] [place] [address] Mar, Gastritis without bleeding, unspecified chronicity, unspecified gastritis type K29.70 [facility] [address] [place] [id number] [address] [place], [place] [address] Mar, [place] [address] [place] [address] Feb, Bipolar 1 disorder, mixed F3 1.60 [place] [address] [place] [id number] [place] [address] Feb, Bipolar 1 disorder, mixed F3 1.60 and Grief F43.20 [place] [address] [place] [id number] [place] [address] Feb, Gastritis without bleeding, unspecified chronicity, unspecified gastritis type K29.70 [place] [address] [address] Feb, Bipolar 1 disorder, mixed F3 1.60 [facility] [address] [place] [id number] [place] [address] 09 Feb, 2016 Gastroesophageal reflux dise ase, esophagitis presence not specified K21.9 [facility] [address] [place] [id number] [address] [place] [address] Jan, Bipolar 1 disorder, mixed F3 1.60 [facility] [address] [place] [id number] [address] [place] [address] Jan, Bipolar 1 disorder, mixed F3 1.60 and Unsteady gait R26.81 [place] [address] [place] [id number] [place] [address] Jan, Bipolar 1 disorder, mixed F3 1.60 [facility] [address] [place] [id number] [address] [place] [address] Jan, Bipolar 1 disorder, mixed F3 1.60 and Other residential (current) drug therapy Z79.899 [facility] [address] [facility] [id number] [address] [place] [address] Jan, Bipolar 1 disorder, mixed F3 1.60 [facility] [address] [facility] [id number] [address] [place] [address] Jan, Bipolar 1 disorder, mixed F3 1.60 [facility] [address] [place] [id number] [address] [place] [address] Jan, Bipolar 1 disorder, mixed F3 1.60 ; Grief F43.20 and Other custom bow maker (current) drug therapy Z79.899 [facility] [address] [facility] [id number] [address] [place] [address] Jan, Bipolar 1 disorder, mixed F3 1.60 [place] [address] [place] [id number] [address] [place] [address] Dec, [place] [address] [place] [id number] [place] [address] Dec, Bipolar 1 disorder, mixed F3 1.60 ; Vitamin D deficiency, unspecified E55.9 ; H/O allergic rhinitis Z87.09 ; Other chronic pain G89.29 and Dorsalgia, unspecified M54.9 [place] [address] [place] [id number] [address] [place] [address] Dec, [place] [address] [place] [id number] [address] [place] [address] Dec, Bipolar 1 disorder, mixed F3 1.60 [facility] [address] [place] [id number] [address] [place] [address] Dec, Major depressive disorder, r ecurrent episode, moderate F33.1 [place] [address] [place] [id number] [address] [place] [address] Dec, Major depressive disorder, r ecurrent episode, moderate F33.1 [place] [address] [place] [id number] [address] [place] [address] Nov, [place] [address] [facility] [id number] [address] [place] [address] Nov, Bipolar 1 disorder, mixed F3 1.60 [place] [address] [facility] [id number] [address] [place] [address] Nov, Major depressive disorder, r ecurrent episode, moderate F33.1 [place] [address] [facility] [id number] [address] [place] [address] Nov, Cervicalgia M54.2 ; Arthralg ia of hip, unspecified laterality M25.559 ; Allergic rhinitis J30.9 and Hormone replacement therapy Z79.890 [facility] [address] [facility] [id number] [address] [place] [address] Nov, Other seasonal allergic rhin itis J30.2 [place] [address] [facility] [id number] [address] [place] [address] October, Major depressive disorder, r ecurrent episode, moderate F33.1 [place] [address] [facility] [id number] [address] [place] [address] October, Major depressive disorder, r ecurrent episode, moderate F33.1 and Arthralgia of hip, unspecified laterality M25.559 [place] [address] [facility] [id number] [address] [place] [address] October, Grief F43.20 ; Hypertension I10 ; Hyperlipidemia, unspecified hyperlipidemia type E78.5 ; Other chronic pain G89.29 and Allergic rhinitis, unspecified allergic rhinitis type J30.9 [place] [address] [facility] [id number] [address] [place] [address] October, Major depressive disorder, r ecurrent episode, moderate F33.1 [place] [address] [facility] [id number] [address] [place] [address] Sep, Major depressive disorder, r ecurrent episode, moderate F33.1 [place] [address] [place] [id number] [address] [place] [address] Sep, [facility] [address] [place] [address] Sep, Major depressive disorder, r ecurrent episode, moderate F33.1 [place] [address] [place] [address] Sep, Grief F43.20 [place] [address] [address] Aug, Major depressive disorder, r ecurrent episode, moderate F33.1 [place] [address] [address] Aug, Bipolar 1 disorder, mixed F3 1.60 [place] [address] [address] Aug, Allergic rhinitis J30.9 ; Ce rvicalgia M54.2 and Low back pain M54.5 [place] [address] [address] Aug, Major depressive disorder, r ecurrent episode, moderate F33.1 [facility] [address] [address] Aug, Sinusitis J32.9 and Tobacco 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 [place] [address] [address] Aug, [facility] [address] [address] Aug, Depressive disorder, not els ewhere classified F32.9 ; Hormone replacement therapy Z79.[address] scan, head R93.0 [place] [address] [address] Aug, Major depressive disorder, r ecurrent episode, moderate F33.1 [facility] [address] [place] [address] Jul, Major depressive disorder, r ecurrent episode, moderate F33.1 [facility] [address] [id number] [address] [place] [address] Jul, Abdominal pain R10.9 and Hyp ertension I10 [facility] [address] [id number] [address] [place] [address] Jul, [facility] [address] [id number] [address] [place] [address] Jul, Major depressive disorder, r ecurrent episode, moderate F33.1 [facility] [address] [id number] [address] [place] [address] Jul, [facility] [address] [id number] [address] [place] [address] Jul, [facility] [address] [facility] [id number] [address] [place] [address] Jun, [facility] [address] [id number] [address] [place] [address] Jun, Depressive disorder, not els ewhere classified F32.9 [facility] [address] [facility] [id number] [address] [place] [address] Jun, [facility] [address] [id number] [address] [place] [address] Jun, [facility] [address] [facility] [id number] [address] [place] [address] Jun, Arthralgia of hip, unspecifi ed laterality M25.559 ; Bruising, spontaneous R23.3 and Night sweats R61 [facility] [address] [id number] [address] [place] [address] Jun, [facility] [address] [facility] [id number] [address] [place] [address] Jun, [facility] [address] [facility] [id number] [address] [place] [address] May, [facility] [address] [id number] [address] [place] [address] May, Myalgia M79.1 and Screening, lipid Z13.220 [facility] [address] [facility] [id number] [address] [place] [address] Apr, Status post cervical spinal fusion Z98.1 ; Fibromyalgia M79.7 and Unsteady gait R26.81 [facility] [address] [id number] [address] [place] [address] Nov, [facility] [address] [id number] [address] [place] [address] Nov, [facility] [address] [id number] [address] [place] [address] October, [facility] [address] [facility] [id number] [address] [place] [address] October, [facility] [address] [facility] [id number] [address] [place] [address] October, [facility] [address] [facility] [id number] [address] [place] [address] October, [facility] [address] [facility] [id number] [address] [place] [address] October, [facility] [address] [facility] [id number] [address] [place] [address] October, Dysuria 788.1 ; Nausea 787.0 2 and Urinary tract infection 599.0 [facility] [address] [id number] [address] [place] [address] Sep, [facility] [address] [facility] [id number] [address] [place] [address] Sep, [facility] [address] [facility] [id number] [address] [place] [address] Aug, [facility] [address] [facility] [id number] [address] [place] [id number] 25 Aug, 2014 [facility] [address] [id number] [facility] [place] [address] 24 Aug, 2014 [facility] [address] [id number] [facility] [place] [address] 24 Aug, 2014 [facility] [address] [id number] [address] [place] [address], [place] [address] 23 Aug, 2014 [facility] [address] [id number] [address] [place] [address], [place] [address] 19 Aug, 2014 [facility] [address] [id number] [address] [place] [address], [place] [address] 19 Aug, 2014 [facility] [address] [id number] [address] [place] [address], [place] [address] 19 Aug, 2014 [facility] [address] [id number] [address] [place] [address], [place] [address] 19 Aug, 2014 [facility] [address] [id number] [address] [place] [address], [place] [address] 18 Aug, 2014 [facility] [address] [id number] [address] [place] [address], [place] [address] 18 Aug, 2014 [facility] [address] [id number] [address] [place] [address], [place] [address] 13 Aug, 2014 [facility] [address] [id number] [address] [place] [address], [place] [address] 13 Aug, 2014 [facility] [address] [id number] [address] [place] [address], [place] [address] 11 Aug, 2014 [facility] [address] [id number] [address] [place] [address], [place] [address] 11 Aug, 2014 [facility] [address] [id number] [address] [place] [address], [place] [address] 06 Aug, 2014 [facility] [address] [id number] [address] [place] [address], [place] [address] 06 Aug, 2014 [facility] [address] [id number] [address] [place] [address], [place] [address] 05 Aug, 2014 [facility] [address] [id number] [address] [place] [address], [place] [address] 05 Aug, 2014 [facility] [address] [id number] [address] [place] [address], [place] [address] 04 Aug, 2014 [facility] [address] [id number] [address] [place] [address], [place] [address] Aug, 2014 [facility] [address] [id number] [address] [place] [address], [place] [address] Aug, [facility] [address] [id number] [address] [place] [address], [place] [address] Jul, 2014 [facility] [address] [id number] [address] [place] [address], [place] [address] Jul, 2014 [facility] [address] [id number] [address] [place] [address], [place] [address] Jul, 2014 [facility] [address] [id number] [address] [place] [address], [place] [address] Jul, [facility] [address] [id number] [address] [place] [address], [place] [address] Jul, [facility] [address] [id number] [address] [place] [address], [place] [address] Jul, [facility] [address] [id number] [address] [place] [address], [place] [address] Jul, 2014 [facility] [address] [id number] [address] [place] [address] [address] Jul, 2014 [facility] [address] [id number] [address] [place] [address], [place] [address] Jul, 2014 [facility] [address] [id number] [address] [place] [address] Jul, 2014 [facility] [address] [id number] [address] [place] [address] Jul, 2014 [facility] [address] [id number] [address] [place] [address], [place] [address] Jul, [facility] [address] [id number] [address] [place] [address], [place] [address] Jul, [facility] [address] [id number] [address] [place] [address], [place] [address] Jul, [facility] [address] [id number] [address] [place] [address] Jun, [facility] [address] [id number] [address] [place] [address], [place] [address] Jun, [facility] [address] [id number] [address] [place] [address], [place] [address] Jun, [facility] [address] [id number] [address] [place] [address], [place] [address] Jun, [facility] [address] [id number] [address] [place] [address], [place] [address] Jun, [facility] [address] [id number] [address] [place] [address], [place] [address] Jun, [facility] [address] [id number] [address] [place] [address], [place] [address] May, [facility] [address] [id number] [address] [place] [address], [place] [address] May, [facility] [address] [id number] [address] [place] [address], [place] [address] May, [facility] [address] [id number] [address] [place] [address], [place] [address] May, [facility] [address] [id number] [address] [place] [address], [place] [address] May, [facility] [address] [id number] [address] [place] [address], [place] [address] May, [facility] [address] [id number] [address] [place] [address], [place] [address] Apr, [facility] [address] [id number] [address] [place] [address], [place] [address] Apr, [facility] [address] [id number] [address] [place] [address], [place] [address] Apr, [facility] [address] [id number] [address] [place] [address], [place] [address] Apr, [facility] [address] [id number] [address] [place] [address], [place] [address] Apr, [facility] [address] [id number] [address] [place] [address], [place] [address] Apr, [facility] [address] [id number] [address] [place] [address], [place] [address] Mar, [facility] [address] [id number] [address] [place] [address], [place] [address] Mar, [facility] [address] [id number] [address] [place] [address], [place] [address] Mar, [facility] [address] [id number] [address] [place] [address], [place] [address] Mar, [facility] [address] [id number] [address] [place] [address], [place] [address] Mar, [facility] [address] [id number] [address] [place] [address], [place] [address] Mar, [facility] [address] [id number] [address] [place] [address] Mar, [facility] [address] [id number] [address] [place] [address], [place] [address] Mar, [facility] [address] [id number] [address] [place] [address], [place] [address] Mar, [facility] [address] [id number] [address] [place] [address], [place] [address] Mar, [facility] [address] [id number] [address] [place] [address], [place] [address] Mar, [facility] [address] [id number] [address] [place] [address], [place] [address] Mar, [facility] [address] [id number] [address] [place] [address], [place] [address] 30 Feb, 2014 [facility] [address] [id number] [address] [place] [address], [place] [address] Feb, [facility] [address] [id number] [address] [place] [address], [place] [address] Feb, [facility] [address] [id number] [address] [place] [address], [place] [address] Feb, [facility] [address] [id number] [address] [place] [address], [place] [address] Feb, [facility] [address] [id number] [address] [place] [address], [place] [address] Feb, [facility] [address] [id number] [address] [place] [address], [place] [address] Feb, [facility] [address] [id number] [address] [place] [address], [place] [address] Jan, [facility] [address] [id number] [address] [place] [address], [place] [address] Jan, [facility] [address] [id number] [address] [place] [address], [place] [address] Jan, [facility] [address] [id number] [address] [place] [address], [place] [address] Dec, [facility] [address] [id number] [address] [place] [address], [place] [address] Dec, [facility] [address] [id number] [address] [place] [address], [place] [address] Dec, [facility] [address] [id number] [address] [place] [address], [place] [address] Dec, [facility] [address] [id number] [address] [place] [address], [place] [address] Sep, [facility] [address] [id number] [address] [place] [address], [place] [address] Sep, [facility] [address] [id number] [address] [place] [address], [place] [address] Sep, [facility] [address] [id number] [address] [place] [address], [place] [address] Sep, [facility] [address] [id number] [address] [place] [address], [place] [address] Sep, [facility] [address] [id number] [address] [place] [address], [place] [address] Sep, [facility] [address] [id number] [address] [place] [address], [place] [address] Sep, [facility] [address] [id number] [address] [place] [address], [place] [address] Sep, [facility] [address] [id number] [address] [place] [address], [place] [address] Aug, [facility] [address] [id number] [address] [place] [address], [place] [address] Aug, [facility] [address] [id number] [address] [place] [address], [place] [address] May, [facility] [address] [id number] [address] [place] [address], [place] [address] May, [facility] [address] [id number] [address] [place] [address], [place] [address] Apr, [facility] [address] [id number] [address] [place] [address], [place] [address] Apr, [facility] [address] [id number] [address] [place] [address], [place] [address] Apr, [facility] [address] [id number] [address] [place] [address], [place] [address] Apr, [facility] [address] [id number] [address] [place] [address], [place] [address] Apr, [facility] [address] [id number] [address] [place] [address], [place] [address] Apr, [facility] [address] [id number] [address] [place] [address], [place] [address] 18 May, 2012 [facility] [address] [id number] [address] [place] [address], [place] [address] 18 May, 2012 [facility] [address] [id number] [address] [place] [address], [place] [address] 15 May, 2012 [facility] [address] [id number] [address] [place] [address], [place] [address] 15 May, 2012 [facility] [address] [id number] [address] [place] [address], [place] [address] 13 May, 2012 [facility] [address] [id number] [address] [place] [address], [place] [address] 13 May, 2012 [facility] [address] [id number] [address] [place] [address], [place] [address] 13 Apr, 2012 [facility] [address] [id number] [address] [place] [address], [place] [address] 13 Apr, 2012 [facility] [address] [id number] [address] [place] [address], [place] [address] Apr, [facility] [address] [id number] [address] [place] [address], [place] [address] Apr, [facility] [address] [id number] [address] [place] [address], [place] [address] Apr, [facility] [address] [id number] [address] [place] [address], [place] [address] 08 Apr, 2012 [facility] [address] [id number] [address] [place] [address], [place] [address] Apr, [facility] [address] [id number] [address] [place] [address], [place] [address] Apr, [facility] [address] [id number] [address] [place] [address], [place] [address] Apr, [facility] [address] [id number] [address] [place] [address], [place] [address] Apr, [facility] [address] [id number] [address] [place] [address], [place] [address] Mar, [facility] [address] [id number] [address] [place] [address], [place] [address] Mar, [facility] [address] [id number] [address] [place] [address] Mar, [facility] [address] [id number] [address] [place] [address], [place] [address] Mar, [facility] [address] [id number] [address] [place] [address] Mar, [facility] [address] [id number] [address] [place] [address], [place] [address] Mar, [facility] [address] [id number] [address] [place] [address] Mar, [facility] [address] [id number] [address] [place] [address] Mar, [facility] [address] [id number] [address] [place] [address] Mar, [facility] [address] [id number] [address] [place] [address], [place] [address] 25 Feb, 2012 [facility] [address] [id number] [address] [place] [address] 16 Sep2011 [facility] [address] [id number] [address] [place] [address] 11 Feb, 2012 [facility] [address] [id number] [address] [place] [address], [place] [address] Jan, [facility] [address] [id number] [address] [place] [address], [place] [address] Jan, [facility] [address] [id number] [address] [place] [address], [place] [address] Jan, [facility] [address] [id number] [address] [place] [address], [place] [address] Jan, [facility] [address] [id number] [address] [place] [address], [place] [address] Jan, [facility] [address] [id number] [address] [place] [address], [place] [address] Jan, [facility] [address] [id number] [address] [place] [address], [place] [address] 16 Jan, 2012 [facility] [address] [id number] [address] [place] [address], [place] [address] Jan, [facility] [address] [id number] [address] [place] [address], [place] [address] Jan, [facility] [address] [id number] [address] [place] [address], [place] [address] Jan, [facility] [address] [id number] [address] [place] [address], [place] [address] Dec, [facility] [address] [id number] [address] [place] [address], [place] [address] Dec, [facility] [address] [id number] [address] [place] [address], [place] [address] Dec, [facility] [address] [id number] [address] [place] [address], [place] [address] Dec, [facility] [address] [id number] [address] [place] [address], [place] [address] Nov, [facility] [address] [id number] [address] [place] [address], [place] [address] 08 Nov, 2011 [facility] [address] [id number] [address] [place] [address] Nov, [facility] [address] [id number] [address] [place] [address] October, [facility] [address] [id number] [address] [place] [address] October, [facility] [address] [id number] [address] [place] [address] October, [facility] [address] [id number] [address] [place] [address] October, [facility] [address] [id number] [address] [place] [address] October, [facility] [address] [id number] [address] [place] [address] October, [facility] [address] [id number] [address] [place] [address] Aug, [facility] [address] [id number] [address] [place] [address] Mar, [facility] [address] [id number] [address] [place] [address] Nov, [facility] [address] [id number] [address] [place] [address] May, [facility] [address] [id number] [address] [place] [address] May, [facility] [address] [id number] [address] [place] [address] Apr, [facility] [address] [id number] [address] [place] [address] Mar, [facility] [address] [id number] [address] [place] [address] Mar, IMMUNIZATIONS No Known Immunizations SOCIAL HISTORY [...]
--- OUTSIDE RECORDS SUMMARY | 2019-06-19 05:17 | XMS REPORT ---
Author Author Sydnie HANCOCK [facility] Address [address] [place] [address] Care Team Providers Care Human Resources Assistant Manager Name Role Phone NAHOMY HANCOCK Unavailable PROBLEMS Type Condition ICD9-CM Code UDL52-JE Code Onset Dates Condition S tatus SNOMED Code Problem Age-related osteoporosis without current pathological fracture M81.0 Active 14325069 Problem Sensorineural hearing loss (SNHL) of both ears H90 .3 Active 149909093 Problem Abnormal CT scan, head R93.0 Active 475100649 Problem Arthralgia of hip, unspecified laterality M25.559 Active 56577969 Problem Bruising, spontaneous R23.3 Active 950083666 Problem Hypertension I10 Active 1664044 3 Problem Night sweats R61 Active 6390800 0 Problem Imbalance R26.89 Active 296023569 Problem Hammer toe of right foot M20.41 Activ e 292166334 Problem Hormone replacement therapy Z79.890 Ac tive 080810848 Problem Bipolar 1 disorder, mixed F31.60 Acti ve 40515436 Problem Gastritis without bleeding, unspecified chronicity, unspecified gastritis type K29.70 Active 500808933 Problem Ataxia R27.0 Active 38925381 Problem Hearing loss, unspecified laterality H91.90 Active 74951372 Problem History of colon polyps Z86.010 Active 408343644 Problem Allergic rhinitis J30.9 Active 61 385891 Problem Hematuria, unspecified type R31.9 Ac tive 66798590 Problem Generalized anxiety disorder F41.1 A ctive 12236548 Problem Major depressive disorder, recurrent episode, moderate F33.1 Active 495133000 Problem Fibromyalgia M79.7 Active 0324536 7 Problem Bladder spasm N32.89 Active 704360 006 Problem Tobacco use disorder F17.200 Active 873472071 Problem Other chronic pain G89.29 Active 8 3538490 Problem Post menopausal syndrome N95.1 Activ e 323424396 Problem Grief F43.20 Active 73807220 Problem Hyperlipidemia, unspecified hyperlipidemia type E7 8.5 Active 94076834 Problem Acute left-sided low back pain with left-sided sciatica M54.42 Active 267172959 Problem Sciatica of left side M54.32 Active 98988589 Problem Plantar wart of right foot B07.0 Act mitchell [id number] Problem Slow transit constipation K59.01 Acti ve 50460767 ALLERGIES No Information ENCOUNTERS Encounter Location Date Diagnosis [facility] [address] [place] [id number] [place] [id number] Jan, [facility] [address] [facility] [id number] [address] [place] [address] Dec, [facility] [address] [id number] [place] [address] Dec, [facility] [address] [id number] [place] [address] Dec, [facility] [address] [id number] [place] [address] Nov, Bipolar 1 disorder, mixed F3 1.60 [facility] [address] [id number] [place] [address] Nov, Bipolar 1 disorder, mixed F3 1.60 ; Generalized anxiety disorder F41.1 ; Tobacco use disorder F17.200 and 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60 [place] [address] [place] [address] October, [place] [address] [address] October, Bipolar 1 disorder, mixed F3 1.60 ; Generalized anxiety disorder F41.1 and Tobacco use disorder F17.200 [place] [address] [address] Sep, [place] [address] [place] [id number] [place] [address] Sep, Encounter for Medicare annua wellness exam Z00.00 ; Major depressive disorder, recurrent episode, moderate F33.1 ; Allergic rhinitis J30.9 ; Bipolar 1 disorder, mixed F31.60 ; Fibromyalgia M79.7 ; Hyperlipidemia, unspecified hyperlipidemia type E78.5 ; Hormone replacement therapy Z79.890 ; Encounter for screening for lung cancer Z12.2 and Tobacco use disorder F17.200 [place] [address] [place] [id number] [place] [address] Sep, Bipolar 1 disorder, mixed F3 1.60 [place] [address] [address] Sep, Other chronic pain G89.29 ; Hyperlipidemia, unspecified hyperlipidemia type E78.5 ; Breast cancer screening Z12.31 and Post menopausal syndrome N95.1 [place] [address] [place] [address] Sep, Bipolar 1 disorder, mixed F3 1.60 [place] [address] [place] [id number] [place] [address] Sep, Bipolar 1 disorder, mixed F3 1.60 ; Generalized anxiety disorder F41.1 and Tobacco use disorder F17.200 [place] [address] [place] [id number] [place] [address] Sep, Gastritis without bleeding, unspecified chronicity, unspecified gastritis type K29.70 [place] [address] [facility] [id number] [address] [place] [address] 08 Sep, 2018 Exercise counseling Z71.82 [place] [address] [facility] [id number] [address] [place] [address] Aug, Exercise counseling Z71.82 [place] [address] [place] [id number] [place] [address] Aug, Bipolar 1 disorder, mixed F3 1.60 [place] [address] [facility] [id number] [address] [place] [address] Aug, Exercise counseling Z71.82 [place] [address] [place] [id number] [place] [address] Aug, Bipolar 1 disorder, mixed F3 1.60 [place] [address] [place] [id number] [place] [address] Aug, Gastritis without bleeding, unspecified chronicity, unspecified gastritis type K29.70 ; Tobacco abuse Z72.0 ; Generalized anxiety disorder F41.1 and Weight gain R63.5 [place] [address] [facility] [id number] [address] [place] [address] Aug, Bipolar 1 disorder, mixed F3 1.60 ; Generalized anxiety disorder F41.1 and Tobacco use disorder F17.200 [place] [address] [place] [id number] [place] [address] Jul, Bipolar 1 disorder, mixed F3 1.60 [place] [address] [facility] [id number] [address] [place] [address] Jul, [place] [address] [facility] [id number] [address] [place] [address] Jul, Bipolar 1 disorder, mixed F3 1.60 [place] [address] [facility] [id number] [address] [place] [address] 11 Jul, 2018 Allergic rhinitis J30.9 ; Ma darion depressive disorder, recurrent episode, moderate F33.1 and Tobacco 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 [facility] [address] [id number] [address] [place] [address] Jun, [facility] [address] [id number] [address] [place] [address] Jun, [facility] [address] [facility] [id number] [address] [place] [address] Jun, Bipolar 1 disorder, mixed F3 1.60 [facility] [address] [facility] [id number] [address] [place] [address] Jun, Bipolar 1 disorder, mixed F3 1.60 [facility] [address] [id number] [address] [place] [address] Jun, Bipolar 1 disorder, mixed F3 1.60 [facility] [address] [facility] [id number] [address] [place] [address] Jun, Generalized anxiety disorder F41.1 ; Tobacco abuse Z72.0 and Major depressive disorder, recurrent episode, moderate F33.1 [facility] [address] [facility] [id number] [address] [place] [address] May, Bipolar 1 disorder, mixed F3 1.60 [facility] [address] [facility] [id number] [address] [place] [address] May, Bipolar 1 disorder, mixed F3 1.60 and Generalized anxiety disorder F41.1 [facility] [address] [facility] [id number] [address] [place] [address] May, Bipolar 1 disorder, mixed F3 1.60 [facility] [address] [facility] [id number] [address] [place] [address] May, Allergic rhinitis J30.9 [facility] [address] [facility] [id number] [address] [place] [address] May, Bipolar 1 disorder, mixed F3 1.60 [facility] [address] [facility] [id number] [address] [place] [address] May, [facility] [id number] [place] [address] Apr, Allergic rhinitis J30.9 ; Dy sfunction of both eustachian tubes H69.83 ; History of bladder surgery Z98.890 and Cervicalgia M54.2 [facility] [address] [id number] [place] [address] Mar, Bipolar 1 disorder, mixed F3 1.60 [place] [address] [address] Mar, [place] [address] [address] Mar, Slow transit constipation K5 9.01 ; Encounter for immunization Z23 and Generalized anxiety disorder F41.1 [place] [address] [place] [id number] [place] [address] 27 Feb, 2018 Bipolar 1 disorder, mixed F3 1.60 [place] [address] [place] [address] 26 Feb, 2018 Allergic rhinitis J30.9 [facility] [id number] [place] [address] 24 Feb, 2018 Bipolar 1 disorder, mixed F3 1.60 [place] [address] [place] [id number] [place] [address] 20 Feb, 2018 Bipolar 1 disorder, mixed F3 1.60 and Generalized anxiety disorder F41.1 [place] [address] [place] [id number] [place] [address] 13 Feb, 2018 Bipolar 1 disorder, mixed F3 1.60 [place] [address] [place] [id number] [place] [address] 11 Feb, 2018 Allergic rhinitis J30.9 [facility] [id number] [place] [id number] 05 Feb, 2018 [facility] [id number] [place] [address] Jan, Bipolar 1 disorder, mixed F3 1.60 [facility] [id number] [place] [address] Jan, Low back pain M54.5 ; Hyperl ipidemia, unspecified hyperlipidemia type E78.5 and Bipolar 1 disorder, mixed F31.60 [facility] [id number] [place] [address] Jan, Bipolar 1 disorder, mixed F3 1.60 [facility] [id number] [place] [address] Jan, Bipolar 1 disorder, mixed F3 1.60 [facility] [id number] [place] [address] Jan, Bipolar 1 disorder, mixed F3 1.60 [facility] [id number] [place] [address] Jan, Bipolar 1 disorder, mixed F3 1.60 [facility] [address] [id number] [place] [address] Dec, Bipolar 1 disorder, mixed F3 1.60 ; Generalized anxiety disorder F41.1 and 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 [facility] [id number] [place] [address] Dec, Other mcc (current) dr ug therapy Z79.899 [facility] [id number] [place] [address] Dec, Bipolar 1 disorder, mixed F3 1.60 [facility] [id number] [place] [address] Dec, Bipolar 1 disorder, mixed F3 1.60 [facility] [address] [id number] [place], [place] [id number] Nov, Bipolar 1 disorder, mixed F3 1.60 [facility] [id number] [place] [address] Nov, Bipolar 1 disorder, mixed F3 1.60 [place] [address] [place] [id number] [place] [address] 13 Nov, 2017 Bipolar 1 disorder, mixed F3 1.60 [place] [address] [facility] [id number] [address] [place] [address] Nov, Allergic rhinitis J30.9 [facility] [address] [place] [address] Nov, Allergic rhinitis J30.9 [place] [address] [place] [id number] [place] [address] Nov, [place] [address] [address] Nov, Bipolar 1 disorder, mixed F3 1.60 [place] [address] [address] Nov, Fibromyalgia M79.7 and Aller gic rhinitis J30.9 [place] [address] [place] [address] October, Bipolar 1 disorder, mixed F3 1.60 [facility] [place] [address] [address] October, Acute nasopharyngitis J00 [facility] [place] [address] [address] October, Bitten or stung by nonvenomo us insect and other nonvenomous arthropods, initial encounter W57.XXXA and Insect bite (nonvenomous) of abdominal wall, initial encounter S30.861A [place] [address] [address] October, Insect bite (nonvenomous) of abdominal wall, initial encounter S30.861A ; Bitten or stung by nonvenomous insect and other nonvenomous arthropods, initial encounter W57.XXXA ; Allergic rhinitis J30.9 and Low back pain M54.5 [place] [address] [id number] [address] [place] [address] October, Bipolar 1 disorder, mixed F3 1.60 [facility] [address] [id number] [address] [place] [address] October, [facility] [address] [id number] [address] [place] [address] October, [facility] [address] [id number] [address] [place] [address] October, Bipolar 1 disorder, mixed F3 1.60 [facility] [address] [id number] [address] [place] [address] Sep, Bipolar 1 disorder, mixed F3 1.60 [facility] [address] [facility] [id number] [address] [place] [address] Sep, Other chronic pain G89.29 [facility] [address] [id number] [address] [place] [address] Sep, [facility] [address] [id number] [address] [place] [address] Sep, Bipolar 1 disorder, mixed F3 1.60 [facility] [address] [facility] [id number] [address] [place] [address] Sep, Allergic rhinitis J30.9 and Sciatica of left side M54.32 [facility] [address] [facility] [id number] [address] [place] [address] Sep, Bipolar 1 disorder, mixed F3 1.60 [facility] [address] [id number] [address] [place] [address] Sep, Bipolar 1 disorder, mixed F3 1.60 and Generalized anxiety disorder F41.1 [facility] [address] [facility] [id number] [address] [place] [address] Aug, [facility] [address] [facility] [id number] [address] [place] [address] Aug, Bipolar 1 disorder, mixed F3 1.60 [facility] [address] [id number] [address] [place] [address] Aug, Bipolar 1 disorder, mixed F3 1.60 [facility] [address] [facility] [id number] [address] [place] [address] Aug, [facility] [address] [facility] [id number] [address] [place] [address] Aug, Generalized anxiety disorder F41.1 [facility] [address] [facility] [id number] [address] [place] [address] Aug, Bipolar 1 disorder, mixed F3 1.60 [facility] [address] [facility] [id number] [address] [place] [address] Aug, Plantar wart of right foot B 07.0 [facility] [address] [facility] [id number] [address] [place] [address] Aug, Bipolar 1 disorder, mixed F3 1.60 [facility] [address] [facility] [id number] [address] [place] [address] Jul, Bipolar 1 disorder, mixed F3 1.60 [facility] [address] [facility] [id number] [address] [place] [address] Jul, [facility] [address] [facility] [id number] [address] [place] [address] 14 Jul, 2017 Bipolar 1 disorder, mixed F3 1.60 [facility] [address] [facility] [id number] [address] [place] [address] Jul, Generalized anxiety disorder F41.1 [facility] [address] [facility] [id number] [address] [place] [address] Jul, Bipolar 1 disorder, mixed F3 1.60 [facility] [address] [facility] [id number] [address] [place] [address] 07 Jul, 2017 Acute left-sided low back pa in with left-sided sciatica M54.42 [facility] [address] [address] Jul, Coccydynia M53.3 [place] [address] [address] Jun, Bipolar 1 disorder, mixed F3 1.60 [facility] [address] [address] Jun, Acute nasopharyngitis J00 [place] [address] [address] Jun, Bipolar 1 disorder, mixed F3 1.60 [place] [address] [address] Jun, Fibromyalgia M79.7 [place] [address] [address] Jun, Bipolar 1 disorder, mixed F3 1.60 [place] [address] [address] Jun, Fibromyalgia M79.7 and Bipol ar 1 disorder, mixed F31.60 [place] [address] [address] May, Bipolar 1 disorder, mixed F3 1.60 ; Generalized anxiety disorder F41.1 and 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 [place] [address] [address] May, Bipolar 1 disorder, mixed F3 1.60 [facility] [address] [address] May, Cough R05 and Body aches R52 [facility] [address] [address] May, Bladder spasm N32.89 and Acu te cystitis without hematuria N30.00 [place] [address] [address] 07 May, 2017 Bipolar 1 disorder, mixed F3 1.60 [facility] [address] [place] [address] 30 Apr, 2017 [facility] [address] Apr, Major depressive disorder, r ecurrent episode, moderate F33.1 and Encounter for immunization Z23 [facility] [address] [place] [address] Apr, Bipolar 1 disorder, mixed F3 1.60 [facility] [address] Apr, Bipolar 1 disorder, mixed F3 1.60 [place] [address] 16 Apr, 2017 Bipolar 1 disorder, mixed F3 1.60 [facility] [address] [address] Apr, Yeast vaginitis B37.3 [facility] [address] [address] 09 Apr, 2017 Bipolar 1 disorder, mixed F3 1.60 [facility] [address] [place] [id number] [place] [id number] 07 Apr, 2017 Cellulitis L03[address] for immunization Z23 [facility] [address] [place] [id number] [address] [place] [address] Apr, Bipolar 1 disorder, mixed F3 1.60 [facility] [address] [address] Mar, Bipolar 1 disorder, mixed F3 1.60 [facility] [address] [address] Mar, Bipolar 1 disorder, mixed F3 1.60 [facility] [address] [address] Mar, Imbalance R26.89 [address] for immunization Z23 [place] [address] [place] [address] Mar, Generalized anxiety disorder F41.1 [place] [address] [place] [id number] [place] [address] Mar, Bipolar 1 disorder, mixed F3 1.60 [place] [address] [place] [id number] [place] [address] Mar, Generalized anxiety disorder F41.1 [place] [address] [place] [id number] [place] [address] Mar, Bipolar 1 disorder, mixed F3 1.60 [place] [address] [place] [id number] [place] [address] Mar, Bipolar 1 disorder, mixed F3 1.60 [place] [address] [place] [id number] [place] [address] Feb, Bipolar 1 disorder, mixed F3 1.60 [place] [address] [id number] Feb, Bipolar 1 disorder, mixed F3 1.60 and Generalized anxiety disorder F41.1 [place] [address] [address] [place] [id number] [address] [place] [id number] Feb, Gastritis without bleeding, unspecified chronicity, unspecified gastritis type K29.70 ; Hammer toe of right foot M20.41 and Other viral warts B07.8 [place] [address] [address] [place] [id number] [address] [place] [id number] Feb, Bipolar 1 disorder, mixed F3 1.60 [place] [address] [address] [place] [id number] [address] [place] [id number] Feb, Bipolar 1 disorder, mixed F3 1.60 [place] [address] [address] [place] [id number] [address] [place] [id number] 05 Feb, 2017 Bipolar 1 disorder, mixed F3 1.60 [facility] [address] [facility] [id number] [address] [place] [id number] Jan, Encounter for screening mamm ogram for breast cancer Z12.31 ; Other viral warts B07.8 and Allergic rhinitis J30.9 [facility] [address] [facility] [id number] [address] [place] [id number] Jan, Bipolar 1 disorder, mixed F3 1.60 [facility] [address] [facility] [id number] [address] [place] [id number] Jan, Bipolar 1 disorder, mixed F3 1.60 [place] [place] [address] [address] [facility] [id number] [address] [place] [address] Jan, [facility] [address] [facility] [id number] [address] [place] [address] Jan, Bipolar 1 disorder, mixed F3 1.60 [place] [address] [address] [facility] [id number] [address] [place] [address] Jan, Bipolar 1 disorder, mixed F3 1.60 [facility] [address] [facility] [id number] [address] [place] [address] Jan, Allergic rhinitis J30.9 ; He maturia R31.9 and Colon cancer screening Z12.11 [facility] [address] [facility] [id number] [address] [place] [address] Dec, Bipolar 1 disorder, mixed F3 1.60 [facility] [address] [facility] [id number] [address] [place] [address] Dec, Bipolar 1 disorder, mixed F3 1.60 ; Generalized anxiety disorder F41.1 and Other mcc (current) drug therapy Z79.899 [facility] [address] [facility] [id number] [address] [place] [address] Dec, Bipolar 1 disorder, mixed F3 1.60 [facility] [address] [facility] [id number] [address] [place] [address] Dec, Bipolar 1 disorder, mixed F3 1.60 [facility] [address] [facility] [id number] [address] [place] [address] Dec, Bipolar 1 disorder, mixed F3 1.60 [facility] [address] [facility] [id number] [address] [place] [address] Dec, Low back pain M54.5 and Recu rrent urinary tract infection N39.0 [facility] [address] [facility] [id number] [address] [place] [address] Nov, Bipolar 1 disorder, mixed F3 1.60 [facility] [address] [facility] [id number] [address] [place] [address] Nov, Bipolar 1 disorder, mixed F3 1.60 [place] [address] [place] [id number] [address] [place] [id number] Nov, Bipolar 1 disorder, mixed F3 1.60 [facility] [address] [place] [id number] [address] [place] [address] Nov, Bipolar 1 disorder, mixed F3 1.60 [facility] [address] [facility] [id number] [address] [place] [address] Nov, [place] [address] [place] [id number] [address] [place] [address] Nov, Anesthesia of skin R20.0 ; F requent UTI N39.0 ; Tobacco abuse Z72.0 and Colon cancer screening Z12.11 [facility] [address] [facility] [id number] [address] [place] [address] Nov, Bipolar 1 disorder, mixed F3 1.60 [facility] [address] [facility] [id number] [address] [place] [address] October, Bipolar 1 disorder, mixed F3 1.60 [facility] [address] [facility] [id number] [address] [place] [address] October, Bipolar 1 disorder, mixed F3 1.60 [facility] [address] [place] [id number] [address] [place] [id number] October, Bipolar 1 disorder, mixed F3 1.60 [place] [address] [place] [id number] [address] [place] [address] October, Bipolar 1 disorder, mixed F3 1.60 [place] [address] [place] [id number] [address] [place] [address] October, Bipolar 1 disorder, mixed F3 1.60 [place] [address] [address] October, Cervicalgia M54.2 and Bipola r 1 disorder, mixed F31.60 [place] [address] [address] October, Hypertension I10 ; Hyperlipi demia, unspecified hyperlipidemia type E78.5 and Family history of thyroid disease Z83.49 [place] [address] [address] October, [place] [address] [address] October, Hypertension I10 ; Hyperlipi demia, unspecified hyperlipidemia type E78.5 and Family history of thyroid problem Z83.49 [place] [address] [address] October, Bipolar 1 disorder, mixed F3 1.60 [place] [address] [address] Sep, Bipolar 1 disorder, mixed F3 1.60 [place] [address] [place] [id number] [address] [place] [address] Sep, Bipolar 1 disorder, mixed F3 1.60 [place] [address] [place] [id number] [place] [address] Sep, Bipolar 1 disorder, mixed F3 1.60 [place] [address] [place] [id number] [address] [place] [address] Sep, History of colon polyps Z86. 010 and Hematochezia K92.1 [facility] [address] [place] [id number] [address] [place] [id number] Sep, Major depressive disorder, r ecurrent episode, moderate F33.1 [facility] [address] [facility] [id number] [address] [place] [address] Sep, Bipolar 1 disorder, mixed F3 1.60 [facility] [address] [facility] [id number] [address] [place] [address] Aug, Hot flashes due to menopause N95.1 [facility] [address] [facility] [id number] [address] [place] [address] Aug, Bipolar 1 disorder, mixed F3 1.60 [place] [address] [place] [id number] [address] [place] [address] Aug, [place] [address] [place] [id number] [address] [place] [address] Aug, Bipolar 1 disorder, mixed F3 1.60 [place] [address] [place] [id number] [address] [place] [address] Aug, Bipolar 1 disorder, mixed F3 1.60 [place] [address] [place] [id number] [address] [place] [address] Aug, Hot flashes due to menopause N95.1 ; Cervicalgia M54.2 and Ataxia R27.0 [facility] [address] [facility] [id number] [address] [place] [address] Jul, Bipolar 1 disorder, mixed F3 1.60 [place] [address] [facility] [id number] [address] [place] [address] Jul, Bipolar 1 disorder, mixed F3 1.60 [facility] [address] [facility] [id number] [address] [place] [address] Jul, Bipolar 1 disorder, mixed F3 1.60 [facility] [address] [place] [id number] [address] [place] [id number] 13 Jul, 2016 Bipolar 1 disorder, mixed F3 1.60 [facility] [address] Jul, Bipolar 1 disorder, mixed F3 1.60 [facility] [address] [place] [id number] [address] [place] [address] 08 Jul, 2016 Cervicalgia M54.2 ; Tremor R 25.1 ; Hearing abnormally acute, unspecified laterality H93.239 ; Alopecia L65.9 ; Encounter for immunization Z23 and Family history of thyroid disease Z83.49 [place] [address] Jul, Bipolar 1 disorder, mixed F3 1.60 [place] [address] [place] [address] Jun, [place] [address] [place] [address] Jun, Hearing disorder, unspecifie d laterality H93.299 [place] [address] [address] Jun, Bipolar 1 disorder, mixed F3 1.60 [facility] [address] [place] [id number] [address] [place] [address] Jun, Bipolar 1 disorder, mixed F3 1.60 [place] [address] [place] [address] Jun, Allergic rhinitis J30.9 [facility] [address] [place] [id number] [address] [place] [address] Jun, Bipolar 1 disorder, mixed F3 1.60 [place] [address] [place] [id number] [address] [place], [place] [id number] Jun, Bipolar 1 disorder, mixed F3 1.60 [facility] [address] [place] [id number] [address] [place] [address] Jun, Allergic rhinitis J30.9 [facility] [address] [facility] [id number] [address] [place] [address] Jun, Allergic rhinitis J30.9 [facility] [address] [facility] [id number] [address] [place] [address] Jun, Bipolar 1 disorder, mixed F3 1.60 [facility] [address] [facility] [id number] [address] [place] [address] May, Bipolar 1 disorder, mixed F3 1.60 [facility] [address] [id number] [address] [place] [address] May, Bipolar 1 disorder, mixed F3 1.60 [facility] [address] [facility] [id number] [address] [place] [address] May, [facility] [address] [facility] [id number] [address] [place] [address] May, Bipolar 1 disorder, mixed F3 1.60 [facility] [address] [facility] [id number] [address] [place] [address] May, Bipolar 1 disorder, mixed F3 1.60 [facility] [address] [facility] [id number] [address] [place] [address] May, [facility] [address] [facility] [id number] [address] [place] [address] May, [facility] [address] [place] [id number] [address] [place] [address] May, [facility] [address] [facility] [id number] [address] [place] [address] May, Abdominal pain, unspecified location R10.9 [facility] [address] [facility] [id number] [address] [place] [address] May, [facility] [address] [facility] [id number] [address] [place] [address] Apr, Hematuria R31.9 ; Ataxia R27 .0 and Hearing loss, unspecified laterality H91.90 [place] [address] [place] [address] Apr, Bipolar 1 disorder, mixed F3 1.60 [facility] [address] [place] [id number] [address] [place] [address] Apr, Acute effusion of both middl e ears H65.193 [place] [address] [place] [id number] [address] [place] [address] 10 Apr, 2016 Hematuria R31.9 and Pyelonep hritis N12 [place] [address] [address] Apr, [place] [address] [address] Mar, Bipolar 1 disorder, mixed F3 1.60 [place] [address] [address] Mar, [place] [address] [address] Mar, Bipolar 1 disorder, mixed F3 1.60 [place] [address] [address] Mar, Bipolar 1 disorder, mixed F3 1.60 [place] [address] [address] Mar, Encounter for immunization Z 23 and Gastritis without bleeding, unspecified chronicity, unspecified gastritis type K29.70 [place] [address] [place] [id number] [address] [place] [address] Mar, Bipolar 1 disorder, mixed F3 1.60 and Grief F43.20 [place] [address] [address] Mar, Gastritis without bleeding, unspecified chronicity, unspecified gastritis type K29.70 [place] [address] [address] Mar, Bipolar 1 disorder, mixed F3 1.60 [facility] [address] [place] [id number] [address] [place] [address] Mar, Gastritis without bleeding, unspecified chronicity, unspecified gastritis type K29.70 [facility] [address] [place] [id number] [address] [place] [address] Mar, [place] [address] [place] [address] Feb, Bipolar 1 disorder, mixed F3 1.60 [place] [address] [place] [id number] [place] [address] Feb, Bipolar 1 disorder, mixed F3 1.60 and Grief F43.20 [place] [address] [place] [id number] [place] [address] Feb, Gastritis without bleeding, unspecified chronicity, unspecified gastritis type K29.70 [place] [address] [address] Feb, Bipolar 1 disorder, mixed F3 1.60 [facility] [address] [place] [id number] [place] [address] 09 Feb, 2016 Gastroesophageal reflux dise ase, esophagitis presence not specified K21.9 [facility] [address] [place] [id number] [address] [place] [address] Jan, Bipolar 1 disorder, mixed F3 1.60 [facility] [address] [place] [id number] [address] [place] [address] Jan, Bipolar 1 disorder, mixed F3 1.60 and Unsteady gait R26.81 [place] [address] [place] [id number] [place] [address] Jan, Bipolar 1 disorder, mixed F3 1.60 [facility] [address] [place] [id number] [address] [place] [address] Jan, Bipolar 1 disorder, mixed F3 1.60 and Other mcc (current) drug therapy Z79.899 [facility] [address] [facility] [id number] [address] [place] [address] Jan, Bipolar 1 disorder, mixed F3 1.60 [facility] [address] [facility] [id number] [address] [place] [address] Jan, Bipolar 1 disorder, mixed F3 1.60 [facility] [address] [place] [id number] [address] [place] [address] Jan, Bipolar 1 disorder, mixed F3 1.60 ; Grief F43.20 and 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 [facility] [address] [facility] [id number] [address] [place] [address] Jan, Bipolar 1 disorder, mixed F3 1.60 [place] [address] [place] [id number] [address] [place] [address] Dec, [place] [address] [place] [id number] [place] [address] Dec, Bipolar 1 disorder, mixed F3 1.60 ; Vitamin D deficiency, unspecified E55.9 ; H/O allergic rhinitis Z87.09 ; Other chronic pain G89.29 and Dorsalgia, unspecified M54.9 [place] [address] [place] [id number] [address] [place] [address] Dec, [place] [address] [place] [id number] [address] [place] [address] Dec, Bipolar 1 disorder, mixed F3 1.60 [facility] [address] [place] [id number] [address] [place] [address] Dec, Major depressive disorder, r ecurrent episode, moderate F33.1 [place] [address] [place] [id number] [address] [place] [address] Dec, Major depressive disorder, r ecurrent episode, moderate F33.1 [place] [address] [place] [id number] [address] [place] [address] Nov, [place] [address] [facility] [id number] [address] [place] [address] Nov, Bipolar 1 disorder, mixed F3 1.60 [place] [address] [facility] [id number] [address] [place] [address] Nov, Major depressive disorder, r ecurrent episode, moderate F33.1 [place] [address] [facility] [id number] [address] [place] [address] Nov, Cervicalgia M54.2 ; Arthralg ia of hip, unspecified laterality M25.559 ; Allergic rhinitis J30.9 and Hormone replacement therapy Z79.890 [facility] [address] [facility] [id number] [address] [place] [address] Nov, Other seasonal allergic rhin itis J30.2 [place] [address] [facility] [id number] [address] [place] [address] October, Major depressive disorder, r ecurrent episode, moderate F33.1 [place] [address] [facility] [id number] [address] [place] [address] October, Major depressive disorder, r ecurrent episode, moderate F33.1 and Arthralgia of hip, unspecified laterality M25.559 [place] [address] [facility] [id number] [address] [place] [address] October, Grief F43.20 ; Hypertension I10 ; Hyperlipidemia, unspecified hyperlipidemia type E78.5 ; Other chronic pain G89.29 and Allergic rhinitis, unspecified allergic rhinitis type J30.9 [place] [address] [facility] [id number] [address] [place] [address] October, Major depressive disorder, r ecurrent episode, moderate F33.1 [place] [address] [facility] [id number] [address] [place] [address] Sep, Major depressive disorder, r ecurrent episode, moderate F33.1 [place] [address] [place] [id number] [address] [place] [address] Sep, [facility] [address] [place] [address] Sep, Major depressive disorder, r ecurrent episode, moderate F33.1 [place] [address] [place] [address] Sep, Grief F43.20 [place] [address] [address] Aug, Major depressive disorder, r ecurrent episode, moderate F33.1 [place] [address] [address] Aug, Bipolar 1 disorder, mixed F3 1.60 [place] [address] [address] Aug, Allergic rhinitis J30.9 ; Ce rvicalgia M54.2 and Low back pain M54.5 [place] [address] [address] Aug, Major depressive disorder, r ecurrent episode, moderate F33.1 [facility] [address] [address] Aug, Sinusitis J32.9 and Tobacco 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 [place] [address] [address] Aug, [facility] [address] [address] Aug, Depressive disorder, not els ewhere classified F32.9 ; Hormone replacement therapy Z79.[address] scan, head R93.0 [place] [address] [address] Aug, Major depressive disorder, r ecurrent episode, moderate F33.1 [facility] [address] [place] [address] Jul, Major depressive disorder, r ecurrent episode, moderate F33.1 [facility] [address] [id number] [address] [place] [address] Jul, Abdominal pain R10.9 and Hyp ertension I10 [facility] [address] [id number] [address] [place] [address] Jul, [facility] [address] [id number] [address] [place] [address] Jul, Major depressive disorder, r ecurrent episode, moderate F33.1 [facility] [address] [id number] [address] [place] [address] Jul, [facility] [address] [id number] [address] [place] [address] Jul, [facility] [address] [facility] [id number] [address] [place] [address] Jun, [facility] [address] [id number] [address] [place] [address] Jun, Depressive disorder, not els ewhere classified F32.9 [facility] [address] [facility] [id number] [address] [place] [address] Jun, [facility] [address] [id number] [address] [place] [address] Jun, [facility] [address] [facility] [id number] [address] [place] [address] Jun, Arthralgia of hip, unspecifi ed laterality M25.559 ; Bruising, spontaneous R23.3 and Night sweats R61 [facility] [address] [id number] [address] [place] [address] Jun, [facility] [address] [facility] [id number] [address] [place] [address] Jun, [facility] [address] [facility] [id number] [address] [place] [address] May, [facility] [address] [id number] [address] [place] [address] May, Myalgia M79.1 and Screening, lipid Z13.220 [facility] [address] [facility] [id number] [address] [place] [address] Apr, Status post cervical spinal fusion Z98.1 ; Fibromyalgia M79.7 and Unsteady gait R26.81 [facility] [address] [id number] [address] [place] [address] Nov, [facility] [address] [id number] [address] [place] [id number] Nov, [facility] [address] [id number] [address] [place] [id number] October, [facility] [address] [facility] [id number] [address] [place] [id number] October, [facility] [address] [facility] [id number] [address] [place] [id number] October, [facility] [address] [facility] [id number] [address] [place] [id number] October, [facility] [address] [facility] [id number] [address] [place] [id number] October, [facility] [address] [facility] [id number] [address] [place] [id number] October, Dysuria 788.1 ; Nausea 787.0 2 and Urinary tract infection 599.0 [facility] [address] [id number] [address] [place] [id number] Sep, [facility] [address] [facility] [id number] [address] [place] [id number] Sep, [facility] [address] [facility] [id number] [address] [place] [id number] Aug, [facility] [address] [facility] [id number] [address] [place] [id number] 25 Aug, 2014 [facility] [address] [id number] [facility] [place] [id number] 24 Aug, 2014 [facility] [address] [id number] [facility] [place] [id number] 24 Aug, 2014 [facility] [address] [id number] [address] [place] [address], [place] [id number] 23 Aug, 2014 [facility] [address] [id number] [address] [place] [address], [place] [id number] 19 Aug, 2014 [facility] [address] [id number] [address] [place] [address], [place] [id number] 19 Aug, 2014 [facility] [address] [id number] [address] [place] [address], [place] [id number] 19 Aug, 2014 [facility] [address] [id number] [address] [place] [address], [place] [id number] 19 Aug, 2014 [facility] [address] [id number] [address] [place] [address], [place] [id number] 18 Aug, 2014 [facility] [address] [id number] [address] [place] [address], [place] [address] 18 Aug, 2014 [facility] [address] [id number] [address] [place] [address], [place] [address] 13 Aug, 2014 [facility] [address] [id number] [address] [place] [address], [place] [address] 13 Aug, 2014 [facility] [address] [id number] [address] [place] [address], [place] [address] 11 Aug, 2014 [facility] [address] [id number] [address] [place] [address], [place] [address] 11 Aug, 2014 [facility] [address] [id number] [address] [place] [address], [place] [address] 06 Aug, 2014 [facility] [address] [id number] [address] [place] [address], [place] [address] 06 Aug, 2014 [facility] [address] [id number] [address] [place] [address], [place] [address] 05 Aug, 2014 [facility] [address] [id number] [address] [place] [address], [place] [address] 05 Aug, 2014 [facility] [address] [id number] [address] [place] [address], [place] [address] 04 Aug, 2014 [facility] [address] [id number] [address] [place] [address], [place] [address] Aug, 2014 [facility] [address] [id number] [address] [place] [address], [place] [address] Aug, [facility] [address] [id number] [address] [place] [address], [place] [address] Jul, 2014 [facility] [address] [id number] [address] [place] [address], [place] [address] Jul, 2014 [facility] [address] [id number] [address] [place] [address], [place] [address] Jul, 2014 [facility] [address] [id number] [address] [place] [address], [place] [address] Jul, [facility] [address] [id number] [address] [place] [address], [place] [address] Jul, [facility] [address] [id number] [address] [place] [address], [place] [address] Jul, [facility] [address] [id number] [address] [place] [address], [place] [address] Jul, 2014 [facility] [address] [id number] [address] [place] [address], [place] [address] Jul, 2014 [facility] [address] [id number] [address] [place] [address], [place] [address] Jul, 2014 [facility] [address] [id number] [address] [place] [address] Jul, 2014 [facility] [address] [id number] [address] [place] [address] Jul, 2014 [facility] [address] [id number] [address] [place] [address], [place] [address] Jul, [facility] [address] [id number] [address] [place] [address], [place] [address] Jul, [facility] [address] [id number] [address] [place] [address], [place] [address] Jul, [facility] [address] [id number] [address] [place] [address] Jun, [facility] [address] [id number] [address] [place] [address], [place] [address] Jun, [facility] [address] [id number] [address] [place] [address], [place] [address] Jun, [facility] [address] [id number] [address] [place] [address], [place] [address] Jun, [facility] [address] [id number] [address] [place] [address], [place] [address] Jun, [facility] [address] [id number] [address] [place] [address], [place] [address] Jun, [facility] [address] [id number] [address] [place] [address], [place] [address] May, [facility] [address] [id number] [address] [place] [address], [place] [address] May, [facility] [address] [id number] [address] [place] [address], [place] [address] May, [facility] [address] [id number] [address] [place] [address], [place] [address] May, [facility] [address] [id number] [address] [place] [address], [place] [address] May, [facility] [address] [id number] [address] [place] [address], [place] [address] May, [facility] [address] [id number] [address] [place] [address], [place] [address] Apr, [facility] [address] [id number] [address] [place] [address], [place] [address] Apr, [facility] [address] [id number] [address] [place] [address], [place] [address] Apr, [facility] [address] [id number] [address] [place] [address], [place] [address] Apr, [facility] [address] [id number] [address] [place] [address], [place] [address] Apr, [facility] [address] [id number] [address] [place] [address], [place] [address] Apr, [facility] [address] [id number] [address] [place] [address], [place] [address] Mar, [facility] [address] [id number] [address] [place] [address], [place] [address] Mar, [facility] [address] [id number] [address] [place] [address], [place] [address] Mar, [facility] [address] [id number] [address] [place] [address], [place] [address] Mar, [facility] [address] [id number] [address] [place] [address], [place] [address] Mar, [facility] [address] [id number] [address] [place] [address], [place] [address] Mar, [facility] [address] [id number] [address] [place] [address] Mar, [facility] [address] [id number] [address] [place] [address], [place] [address] Mar, [facility] [address] [id number] [address] [place] [address], [place] [address] Mar, [facility] [address] [id number] [address] [place] [address], [place] [address] Mar, [facility] [address] [id number] [address] [place] [address], [place] [address] Mar, [facility] [address] [id number] [address] [place] [address], [place] [address] Mar, [facility] [address] [id number] [address] [place] [address], [place] [address] 30 Feb, 2014 [facility] [address] [id number] [address] [place] [address], [place] [address] Feb, [facility] [address] [id number] [address] [place] [address], [place] [address] Feb, [facility] [address] [id number] [address] [place] [address], [place] [address] Feb, [facility] [address] [id number] [address] [place] [address], [place] [address] Feb, [facility] [address] [id number] [address] [place] [address], [place] [address] Feb, [facility] [address] [id number] [address] [place] [address], [place] [address] Feb, [facility] [address] [id number] [address] [place] [address], [place] [address] Jan, [facility] [address] [id number] [address] [place] [address], [place] [address] Jan, [facility] [address] [id number] [address] [place] [address], [place] [address] Jan, [facility] [address] [id number] [address] [place] [address], [place] [address] Dec, [facility] [address] [id number] [address] [place] [address], [place] [address] Dec, [facility] [address] [id number] [address] [place] [address], [place] [address] Dec, [facility] [address] [id number] [address] [place] [address], [place] [address] Dec, [facility] [address] [id number] [address] [place] [address], [place] [address] Sep, [facility] [address] [id number] [address] [place] [address], [place] [address] Sep, [facility] [address] [id number] [address] [place] [address], [place] [address] Sep, [facility] [address] [id number] [address] [place] [address], [place] [address] Sep, [facility] [address] [id number] [address] [place] [address], [place] [address] Sep, [facility] [address] [id number] [address] [place] [address], [place] [address] Sep, [facility] [address] [id number] [address] [place] [address], [place] [address] Sep, [facility] [address] [id number] [address] [place] [address], [place] [address] Sep, [facility] [address] [id number] [address] [place] [address], [place] [address] Aug, [facility] [address] [id number] [address] [place] [address], [place] [address] Aug, [facility] [address] [id number] [address] [place] [address], [place] [address] May, [facility] [address] [id number] [address] [place] [address], [place] [address] May, [facility] [address] [id number] [address] [place] [address], [place] [address] Apr, [facility] [address] [id number] [address] [place] [address], [place] [address] Apr, [facility] [address] [id number] [address] [place] [address], [place] [address] Apr, [facility] [address] [id number] [address] [place] [address], [place] [address] Apr, [facility] [address] [id number] [address] [place] [address], [place] [address] Apr, [facility] [address] [id number] [address] [place] [address], [place] [address] Apr, [facility] [address] [id number] [address] [place] [address], [place] [address] 18 May, 2012 [facility] [address] [id number] [address] [place] [address], [place] [address] 18 May, 2012 [facility] [address] [id number] [address] [place] [address], [place] [address] 15 May, 2012 [facility] [address] [id number] [address] [place] [address], [place] [address] 15 May, 2012 [facility] [address] [id number] [address] [place] [address], [place] [address] 13 May, 2012 [facility] [address] [id number] [address] [place] [address], [place] [address] 13 May, 2012 [facility] [address] [id number] [address] [place] [address], [place] [address] 13 Apr, 2012 [facility] [address] [id number] [address] [place] [address], [place] [address] 13 Apr, 2012 [facility] [address] [id number] [address] [place] [address], [place] [address] Apr, [facility] [address] [id number] [address] [place] [address], [place] [address] Apr, [facility] [address] [id number] [address] [place] [address], [place] [address] Apr, [facility] [address] [id number] [address] [place] [address], [place] [address] 08 Apr, 2012 [facility] [address] [id number] [address] [place] [address], [place] [address] Apr, [facility] [address] [id number] [address] [place] [address], [place] [address] Apr, [facility] [address] [id number] [address] [place] [address], [place] [address] Apr, [facility] [address] [id number] [address] [place] [address], [place] [address] Apr, [facility] [address] [id number] [address] [place] [address], [place] [address] Mar, [facility] [address] [id number] [address] [place] [address], [place] [address] Mar, [facility] [address] [id number] [address] [place] [address] Mar, [facility] [address] [id number] [address] [place] [address], [place] [address] Mar, [facility] [address] [id number] [address] [place] [address] Mar, [facility] [address] [id number] [address] [place] [address], [place] [address] Mar, [facility] [address] [id number] [address] [place] [address] Mar, [facility] [address] [id number] [address] [place] [address] Mar, [facility] [address] [id number] [address] [place] [address] Mar, [facility] [address] [id number] [address] [place] [address], [place] [address] 25 Feb, 2012 [facility] [address] [id number] [address] [place] [address] 16 Sep2011 [facility] [address] [id number] [address] [place] [address] 11 Feb, 2012 [facility] [address] [id number] [address] [place] [address], [place] [address] Jan, [facility] [address] [id number] [address] [place] [address], [place] [address] Jan, [facility] [address] [id number] [address] [place] [address], [place] [address] Jan, [facility] [address] [id number] [address] [place] [address], [place] [address] Jan, [facility] [address] [id number] [address] [place] [address], [place] [address] Jan, [facility] [address] [id number] [address] [place] [address], [place] [address] Jan, [facility] [address] [id number] [address] [place] [address], [place] [address] 16 Jan, 2012 [facility] [address] [id number] [address] [place] [address], [place] [address] Jan, [facility] [address] [id number] [address] [place] [address], [place] [address] Jan, [facility] [address] [id number] [address] [place] [address], [place] [address] Jan, [facility] [address] [id number] [address] [place] [address], [place] [address] Dec, [facility] [address] [id number] [address] [place] [address], [place] [address] Dec, [facility] [address] [id number] [address] [place] [address], [place] [address] Dec, [facility] [address] [id number] [address] [place] [address], [place] [address] Dec, [facility] [address] [id number] [address] [place] [address], [place] [address] Nov, [facility] [address] [id number] [address] [place] [address], [place] [address] 08 Nov, 2011 [facility] [address] [id number] [address] [place] [address] Nov, [facility] [address] [id number] [address] [place] [address] October, [facility] [address] [id number] [address] [place] [address] October, [facility] [address] [id number] [address] [place] [address] October, [facility] [address] [id number] [address] [place] [address], [place] [address] October, [facility] [address] [id number] [address] [place] [address] October, [facility] [address] [id number] [address] [place] [address] October, [facility] [address] [id number] [address] [place] [address] Aug, [facility] [address] [id number] [address] [place] [address] Mar, [facility] [address] [id number] [address] [place] [address] Nov, [facility] [address] [id number] [address] [place] [address] May, [facility] [address] [id number] [address] [place] [address] May, [facility] [address] [id number] [address] [place] [address] Apr, [facility] [address] [id number] [address] [place] [address] Mar, [facility] [address] [id number] [address] [place] [address] Mar, IMMUNIZATIONS No Known Immunizations SOCIAL HISTORY Never Assessed REASON FOR VISIT PLAN OF CARE VITAL SIGNS Height 64 in 2014-08-26 Weight 151.44 lbs 2014-08-26 Temperature 98.1 degrees Fahrenheit 2014-08-26 Heart Rate 82 bpm 2014-08-26 Respiratory Rate 20 2014-08-26 Blood pressure systolic 168 mmHg 2014-08-26 Blood pressure diastolic 92 mmHg 2014-08-26 MEDICATIONS Unknown Medications RESULTS No Results PROCEDURES No Known procedures INSTRUCTIONS MEDICATIONS ADMINISTERED No Known Medications MEDICAL (GENERAL) HISTORY Type Description Date Medical History Severe spinal stenosis [facility] cervical spine CT and MRI done 10/2014 at [facility] with Neurosurgery at Medical History Migraine BEAR [...]
--- OUTSIDE RECORDS SUMMARY | 2019-06-19 05:17 | XMS REPORT ---
Author Author Sydnie Huston Doctor Organization [facility] Address Unknown Phone Unavailable Care Team Providers Care Panel Laminator Name Role Phone Migration, Doctor Unavailable Unavailable PROBLEMS Type Condition ICD9-CM Code PIR42-YC Code Onset Dates Condition S tatus SNOMED Code Problem Age-related osteoporosis without current pathological fracture M81.0 Active 09406015 Problem Sensorineural hearing loss (SNHL) of both ears H90 .3 Active 095807910 Problem Abnormal CT scan, head R93.0 Active 309699210 Problem Arthralgia of hip, unspecified laterality M25.559 Active 89173347 Problem Bruising, spontaneous R23.3 Active 001725442 Problem Hypertension I10 Active 1111053 3 Problem Night sweats R61 Active 6643170 0 Problem Imbalance R26.89 Active 541897859 Problem Hammer toe of right foot M20.41 Activ e 696931975 Problem Hormone replacement therapy Z79.890 Ac tive 153137845 Problem Bipolar 1 disorder, mixed F31.60 Acti ve 91466093 Problem Gastritis without bleeding, unspecified chronicity, unspecified gastritis type K29.70 Active 709772041 Problem Ataxia R27.0 Active 91739747 Problem Hearing loss, unspecified laterality H91.90 Active 88437570 Problem History of colon polyps Z86.010 Active 256693087 Problem Allergic rhinitis J30.9 Active 61 705775 Problem Hematuria, unspecified type R31.9 Ac tive 68957974 Problem Generalized anxiety disorder F41.1 A ctive 74056264 Problem Major depressive disorder, recurrent episode, moderate F33.1 Active 233766612 Problem Fibromyalgia M79.7 Active 3081236 7 Problem Bladder spasm N32.89 Active 458567 006 Problem Tobacco use disorder F17.200 Active 336636352 Problem Other chronic pain G89.29 Active 8 2321342 Problem Post menopausal syndrome N95.1 Activ e 902708619 Problem Grief F43.20 Active 03801633 Problem Hyperlipidemia, unspecified hyperlipidemia type E7 8.5 Active 03213982 Problem Acute left-sided low back pain with left-sided sciatica M54.42 Active 449716774 Problem Sciatica of left side M54.32 Active 52635842 Problem Plantar wart of right foot B07.0 Act mitchell [id number] Problem Slow transit constipation K59.01 Acti ve 17464236 ALLERGIES No Information ENCOUNTERS Encounter Location Date Diagnosis [facility] [address] [facility] [id number] [address] [place] [address] Jan, [facility] [address] [facility] [id number] [address] [place] [address] Dec, [facility] [address] [facility] [id number] [address] [place] [address] Dec, [facility] [address] [place] [id number] [address] [place] [address] Dec, [facility] [address] [place] [id number] [address] [place] [address] Nov, Bipolar 1 disorder, mixed F3 1.60 [facility] [address] [facility] [id number] [address] [place] [address] Nov, Bipolar 1 disorder, mixed F3 1.60 ; Generalized anxiety disorder F41.1 ; Tobacco use disorder F17.200 and 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 [facility] [address] [place] [id number] [address] [place] [address] Nov, [facility] [address] [facility] [id number] [address] [place] [address] Nov, Bipolar 1 disorder, mixed F3 1.60 [facility] [address] [facility] [id number] [address] [place] [address] October, Bipolar 1 disorder, mixed F3 1.60 [facility] [address] [place] [id number] [address] [place] [address] October, Bipolar 1 disorder, mixed F3 1.60 [facility] [address] [place] [id number] [address] [place] [address] October, [place] [address] [place] [id number] [address] [place] [address] October, Bipolar 1 disorder, mixed F3 1.60 ; Generalized anxiety disorder F41.1 and Tobacco use disorder F17.200 [place] [address] [place] [id number] [address] [place] [address] Sep, [place] [address] [address] Sep, Encounter for Medicare [facility] wellness exam Z00.00 ; Major depressive disorder, recurrent episode, moderate F33.1 ; Allergic rhinitis J30.9 ; Bipolar 1 disorder, mixed F31.60 ; Fibromyalgia M79.7 ; Hyperlipidemia, unspecified hyperlipidemia type E78.5 ; Hormone replacement therapy Z79.890 ; Encounter for screening for lung cancer Z12.2 and Tobacco use disorder F17.200 [place] [address] [address] Sep, Bipolar 1 disorder, mixed F3 1.60 [place] [address] [address] Sep, Other chronic pain G89.29 ; Hyperlipidemia, unspecified hyperlipidemia type E78.5 ; Breast cancer screening Z12.31 and Post menopausal syndrome N95.1 [place] [address] [place] [id number] [address] [place] [address] Sep, Bipolar 1 disorder, mixed F3 1.60 [place] [address] [place] [id number] [address] [place] [address] Sep, Bipolar 1 disorder, mixed F3 1.60 ; Generalized anxiety disorder F41.1 and Tobacco use disorder F17.200 [place] [address] [address] Sep, Gastritis without bleeding, unspecified chronicity, unspecified gastritis type K29.70 [place] [address] [place] [id number] [address] [place] [address] Sep, Exercise counseling Z71.82 [place] [address] [place] [id number] [address] [place] [address] Aug, Exercise counseling Z71.82 [place] [address] [place] [id number] [address] [place] [address] Aug, Bipolar 1 disorder, mixed F3 1.60 [place] [address] [address] Aug, Exercise counseling Z71.82 [place] [address] [address] Aug, Bipolar 1 disorder, mixed F3 1.60 [place] [address] [address] Aug, Gastritis without bleeding, unspecified chronicity, unspecified gastritis type K29.70 ; Tobacco abuse Z72.0 ; Generalized anxiety disorder F41.1 and Weight gain R63.5 [place] [address] [address] Aug, Bipolar 1 disorder, mixed F3 1.60 ; Generalized anxiety disorder F41.1 and Tobacco use disorder F17.200 [place] [address] [address] Jul, Bipolar 1 disorder, mixed F3 1.60 [place] [address] [address] Jul, [place] [address] [address] Jul, Bipolar 1 disorder, mixed F3 1.60 [place] [address] [address] 11 Jul, 2018 Allergic rhinitis J30.9 ; Ma darion depressive disorder, recurrent episode, moderate F33.1 and Tobacco 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 [place] [address] [address] Jun, [facility] [address] [id number] [address] [place] [address] Jun, [facility] [address] [id number] [address] [place] [address] Jun, Bipolar 1 disorder, mixed F3 1.60 [facility] [address] [facility] [id number] [address] [place] [address] Jun, Bipolar 1 disorder, mixed F3 1.60 [facility] [address] [facility] [id number] [address] [place] [address] Jun, Bipolar 1 disorder, mixed F3 1.60 [facility] [address] [facility] [id number] [address] [place] [address] Jun, Generalized anxiety disorder F41.1 ; Tobacco abuse Z72.0 and Major depressive disorder, recurrent episode, moderate F33.1 [facility] [address] [facility] [id number] [address] [place] [address] May, Bipolar 1 disorder, mixed F3 1.60 [facility] [address] [facility] [id number] [address] [place] [address] May, Bipolar 1 disorder, mixed F3 1.60 and Generalized anxiety disorder F41.1 [facility] [address] [facility] [id number] [address] [place] [address] May, Bipolar 1 disorder, mixed F3 1.60 [facility] [address] [facility] [id number] [address] [place] [address] May, Allergic rhinitis J30.9 [facility] [address] [facility] [id number] [address] [place] [address] May, Bipolar 1 disorder, mixed F3 1.60 [facility] [address] [facility] [id number] [address] [place] [address] May, [facility] [address] [facility] [id number] [address] [place] [address] Apr, Allergic rhinitis J30.9 ; Dy sfunction of both eustachian tubes H69.83 ; History of bladder surgery Z98.890 and Cervicalgia M54.2 [facility] [address] [address] Mar, Bipolar 1 disorder, mixed F3 1.60 [facility] [address] [place] [id number] [place] [address] Mar, [facility] [address] [address] Mar, Slow transit constipation K5 9.01 ; Encounter for immunization Z23 and Generalized anxiety disorder F41.1 [place] [address] [address] Feb, Bipolar 1 disorder, mixed F3 1.60 [place] [address] [address] Feb, Allergic rhinitis J30.9 [facility] [address] [address] Feb, Bipolar 1 disorder, mixed F3 1.60 [place] [address] [address] 20 Feb, 2018 Bipolar 1 disorder, mixed F3 1.60 and Generalized anxiety disorder F41.1 [facility] [address] [place] [id number] [place] [address] Feb, Bipolar 1 disorder, mixed F3 1.60 [facility] [address] [place] [id number] [place] [address] Feb, Allergic rhinitis J30.9 [facility] [address] [place] [id number] [address] [place] [address] 05 Feb, 2018 [place] [address] [place] [id number] [place] [address] Jan, Bipolar 1 disorder, mixed F3 1.60 [place] [address] [place] [id number] [address] [place] [address] Jan, Low back pain M54.5 ; Hyperl ipidemia, unspecified hyperlipidemia type E78.5 and Bipolar 1 disorder, mixed F31.60 [facility] [address] [facility] [id number] [address] [place], [place] [address] Jan, Bipolar 1 disorder, mixed F3 1.60 [facility] [address] [facility] [id number] [address] [place] [address] Jan, Bipolar 1 disorder, mixed F3 1.60 [facility] [address] [facility] [id number] [address] [place] [address] Jan, Bipolar 1 disorder, mixed F3 1.60 [facility] [address] [facility] [id number] [address] [place] [address] Jan, Bipolar 1 disorder, mixed F3 1.60 [facility] [address] [facility] [id number] [address] [place] [address] Dec, Bipolar 1 disorder, mixed F3 1.60 ; Generalized anxiety disorder F41.1 and 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 [facility] [address] [facility] [id number] [address] [place] [address] Dec, Other fci (current) dr ug therapy Z79.899 [facility] [address] [facility] [id number] [address] [place] [address] Dec, Bipolar 1 disorder, mixed F3 1.60 [facility] [address] [facility] [id number] [address] [place] [address] Dec, Bipolar 1 disorder, mixed F3 1.60 [facility] [address] [facility] [id number] [address] [place] [address] Nov, Bipolar 1 disorder, mixed F3 1.60 [facility] [address] [facility] [id number] [address] [place] [address] Nov, Bipolar 1 disorder, mixed F3 1.60 [facility] [address] [facility] [id number] [address] [place] [address] Nov, Bipolar 1 disorder, mixed F3 1.60 [facility] [address] [facility] [id number] [address] [place] [address] Nov, Allergic rhinitis J30.9 [facility] [address] [facility] [id number] [address] [place] [address] Nov, Allergic rhinitis J30.9 [facility] [address] [place] [id number] [address] [place] [address] Nov, [facility] [address] [facility] [id number] [address] [place] [address] Nov, Bipolar 1 disorder, mixed F3 1.60 [place] [address] [address] Nov, Fibromyalgia M79.7 and Aller gic rhinitis J30.9 [place] [address] [place] [id number] [place] [address] October, Bipolar 1 disorder, mixed F3 1.60 [facility] [address] [place] [id number] [address] [place] [address] October, Acute nasopharyngitis J00 [facility] [address] [place] [id number] [address] [place] [address] October, Bitten or stung by nonvenomo us insect and other nonvenomous arthropods, initial encounter W57.XXXA and Insect bite (nonvenomous) of abdominal wall, initial encounter S30.861A [facility] [address] [place] [id number] [address] [place] [address] October, Insect bite (nonvenomous) of abdominal wall, initial encounter S30.861A ; Bitten or stung by nonvenomous insect and other nonvenomous arthropods, initial encounter W57.XXXA ; Allergic rhinitis J30.9 and Low back pain M54.5 [facility] [address] [facility] [id number] [address] [place] [address] October, Bipolar 1 disorder, mixed F3 1.60 [facility] [address] [facility] [id number] [address] [place] [address] October, [facility] [address] [id number] [address] [place] [address] October, [facility] [address] [facility] [id number] [address] [place] [address] October, Bipolar 1 disorder, mixed F3 1.60 [facility] [address] [facility] [id number] [address] [place] [address] Sep, Bipolar 1 disorder, mixed F3 1.60 [facility] [address] [facility] [id number] [address] [place] [address] Sep, Other chronic pain G89.29 [facility] [address] [place] [id number] [address] [place] [address] Sep, [facility] [address] [facility] [id number] [address] [place] [address] Sep, Bipolar 1 disorder, mixed F3 1.60 [facility] [address] [facility] [id number] [address] [place] [address] Sep, Allergic rhinitis J30.9 and Sciatica of left side M54.32 [facility] [address] [facility] [id number] [address] [place] [address] Sep, Bipolar 1 disorder, mixed F3 1.60 [facility] [address] [facility] [id number] [address] [place] [address] Sep, Bipolar 1 disorder, mixed F3 1.60 and Generalized anxiety disorder F41.1 [facility] [address] [facility] [id number] [address] [place] [address] Aug, [facility] [address] [facility] [id number] [address] [place] [address] Aug, Bipolar 1 disorder, mixed F3 1.60 [facility] [address] [facility] [id number] [address] [place] [address] Aug, Bipolar 1 disorder, mixed F3 1.60 [facility] [address] [facility] [id number] [address] [place] [address] Aug, [facility] [address] [facility] [id number] [address] [place] [address] Aug, Generalized anxiety disorder F41.1 [facility] [address] [place] [id number] [address] [place] [address] Aug, Bipolar 1 disorder, mixed F3 1.60 [facility] [address] [facility] [id number] [address] [place] [address] Aug, Plantar wart of right foot B 07.0 [facility] [address] [facility] [id number] [address] [place] [address] Aug, Bipolar 1 disorder, mixed F3 1.60 [facility] [address] [place] [id number] [address] [place] [address] Jul, Bipolar 1 disorder, mixed F3 1.60 [facility] [address] [facility] [id number] [address] [place] [address] Jul, [facility] [address] [facility] [id number] [address] [place] [address] Jul, Bipolar 1 disorder, mixed F3 1.60 [facility] [address] [place] [id number] [address] [place] [address] Jul, Generalized anxiety disorder F41.1 [facility] [address] [facility] [id number] [address] [place] [address] Jul, Bipolar 1 disorder, mixed F3 1.60 [facility] [address] [facility] [id number] [address] [place] [address] Jul, Acute left-sided low back pa in with left-sided sciatica M54.42 [facility] [address] [facility] [id number] [address] [place] [address] 05 Jul, 2017 Coccydynia M53.3 [facility] [address] [place] [id number] [address] [place] [address] Jun, Bipolar 1 disorder, mixed F3 1.60 [facility] [address] [place] [id number] [address] [place] [address] Jun, Acute nasopharyngitis J00 [place] [address] [place] [id number] [place] [address] Jun, Bipolar 1 disorder, mixed F3 1.60 [place] [address] [place] [id number] [place] [address] Jun, Fibromyalgia M79.7 [place] [address] [place] [id number] [place] [address] Jun, Bipolar 1 disorder, mixed F3 1.60 [place] [address] [place] [id number] [place] [address] Jun, Fibromyalgia M79.7 and Bipol ar 1 disorder, mixed F31.60 [place] [address] [place] [id number] [place] [address] May, Bipolar 1 disorder, mixed F3 1.60 ; Generalized anxiety disorder F41.1 and Other fci (current) drug therapy Z79.899 [place] [address] [place] [id number] [place] [address] May, Bipolar 1 disorder, mixed F3 1.60 [facility] [address] [place] [id number] [place] [address] 14 May, 2017 Cough R05 and Body aches R52 [facility] [address] [place] [id number] [place] [address] 10 May, 2017 Bladder spasm N32.89 and Acu te cystitis without hematuria N30.00 [place] [address] [place] [id number] [place] [address] 07 May, 2017 Bipolar 1 disorder, mixed F3 1.60 [place] [address] [address] Apr, [facility] [address] [address] Apr, Major depressive disorder, r ecurrent episode, moderate F33.1 and Encounter for immunization Z23 [facility] [address] [address] Apr, Bipolar 1 disorder, mixed F3 1.60 [facility] [address] [address] Apr, Bipolar 1 disorder, mixed F3 1.60 [place] [address] [place] [address] Apr, Bipolar 1 disorder, mixed F3 1.60 [place] [address] [address] Apr, Yeast vaginitis B37.3 [facility] [address] [address] Apr, Bipolar 1 disorder, mixed F3 1.60 [facility] [address] [address] Apr, Cellulitis L03.[address] for immunization Z23 [place] [address] [address] Apr, Bipolar 1 disorder, mixed F3 1.60 [facility] [address] [address] Mar, Bipolar 1 disorder, mixed F3 1.60 [place] [address] [address] Mar, Bipolar 1 disorder, mixed F3 1.60 [facility] [address] [address] Mar, Imbalance R26.89 [address] Encount er for immunization Z23 [facility] [address] [place] [id number] [address] [place] [address] Mar, Generalized anxiety disorder F41.1 [place] [address] [address] Mar, Bipolar 1 disorder, mixed F3 1.60 [place] [address] [address] Mar, Generalized anxiety disorder F41.1 [place] [address] [address] Mar, Bipolar 1 disorder, mixed F3 1.60 [place] [address] [address] Mar, Bipolar 1 disorder, mixed F3 1.60 [place] [address] [address] Feb, Bipolar 1 disorder, mixed F3 1.60 [place] [address] [address] Feb, Bipolar 1 disorder, mixed F3 1.60 and Generalized anxiety disorder F41.1 [place] [address] [address] Feb, Gastritis without bleeding, unspecified chronicity, unspecified gastritis type K29.70 ; Hammer toe of right foot M20.41 and Other viral warts B07.8 [place] [address] [place] [address] Feb, Bipolar 1 disorder, mixed F3 1.60 [place] [address] [address] 13 Feb, 2017 Bipolar 1 disorder, mixed F3 1.60 [place] [address] [address] 05 Feb, 2017 Bipolar 1 disorder, mixed F3 1.60 [place] [address] [address] Jan, Encounter for screening mamm ogram for breast cancer Z12.31 ; Other viral warts B07.8 and Allergic rhinitis J30.9 [facility] [address] [facility] [id number] [address] [place] [address] Jan, Bipolar 1 disorder, mixed F3 1.60 [facility] [address] [facility] [id number] [address] [place] [id number] Jan, Bipolar 1 disorder, mixed F3 1.60 [facility] [address] [facility] [id number] [address] [place] [phone] Jan, [place] [address] [address] [facility] [id number] [address] [place] [phone] Jan, Bipolar 1 disorder, mixed F3 1.60 [place] [address] [address] [place] [id number] [address] [place] [phone] Jan, Bipolar 1 disorder, mixed F3 1.60 [place] [address] [address] [place] [id number] [address] [place] [phone] Jan, Allergic rhinitis J30.9 ; He maturia R31.9 and Colon cancer screening Z12.11 [place] [address] [address] [facility] [id number] [address] [place] [phone] Dec, Bipolar 1 disorder, mixed F3 1.60 [place] [address] [address] [facility] [id number] [address] [place] [phone] Dec, Bipolar 1 disorder, mixed F3 1.60 ; Generalized anxiety disorder F41.1 and 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0 [facility] [address] [id number] [address] [place] [id number] Nov, Bipolar 1 disorder, mixed F3 1.60 [facility] [address] [id number] [address] [place] [address] Nov, Bipolar 1 disorder, mixed F3 1.60 [facility] [address] [id number] [address] [place] [address] Nov, Bipolar 1 disorder, mixed F3 1.60 [facility] [address] [facility] [id number] [address] [place] [address] Nov, Bipolar 1 disorder, mixed F3 1.60 [facility] [address] [facility] [id number] [address] [place] [address] Nov, [facility] [address] [facility] [id number] [address] [place] [address] Nov, Anesthesia of skin R20.0 ; F requent UTI N39.0 ; Tobacco abuse Z72.0 and Colon cancer screening Z12.11 [facility] [address] [facility] [id number] [address] [place] [address] Nov, Bipolar 1 disorder, mixed F3 1.60 [facility] [address] [id number] [address] [place] [address] October, Bipolar 1 disorder, mixed F3 1.60 [facility] [address] [facility] [id number] [address] [place] [address] October, Bipolar 1 disorder, mixed F3 1.60 [facility] [address] [facility] [id number] [address] [place] [address] October, Bipolar 1 disorder, mixed F3 1.60 [facility] [address] [address] October, Bipolar 1 disorder, mixed F3 1.60 [place] [address] [address] October, Bipolar 1 disorder, mixed F3 1.60 [facility] [address] [address] October, Cervicalgia M54.2 and Bipola r 1 disorder, mixed F31.60 [place] [address] [address] October, Hypertension I10 ; Hyperlipi demia, unspecified hyperlipidemia type E78.5 and Family history of thyroid disease Z83.49 [place] [address] [address] October, [place] [address] [address] October, Hypertension I10 ; Hyperlipi demia, unspecified hyperlipidemia type E78.5 and Family history of thyroid problem Z83.49 [place] [address] [address] October, Bipolar 1 disorder, mixed F3 1.60 [place] [address] [address] Sep, Bipolar 1 disorder, mixed F3 1.60 [place] [address] [address] Sep, Bipolar 1 disorder, mixed F3 1.60 [place] [address] [address] Sep, Bipolar 1 disorder, mixed F3 1.60 [place] [address] [address] Sep, History of colon polyps Z86. 010 and Hematochezia K92.1 [place] [address] [address] Sep, Major depressive disorder, r ecurrent episode, moderate F33.1 [facility] [address] [place] [id number] [address] [place] [address] Sep, Bipolar 1 disorder, mixed F3 1.60 [facility] [address] [place] [id number] [address] [place] [address] Aug, Hot flashes due to menopause N95.1 [facility] [address] [place] [id number] [address] [place] [address] Aug, Bipolar 1 disorder, mixed F3 1.60 [facility] [address] [place] [id number] [address] [place] [address] Aug, [facility] [address] [place] [id number] [address] [place] [address] Aug, Bipolar 1 disorder, mixed F3 1.60 [facility] [address] [place] [id number] [address] [place] [address] Aug, Bipolar 1 disorder, mixed F3 1.60 [facility] [address] [place] [id number] [address] [place] [address] Aug, Hot flashes due to menopause N95.1 ; Cervicalgia M54.2 and Ataxia R27.0 [facility] [address] [place] [id number] [address] [place] [address] Jul, Bipolar 1 disorder, mixed F3 1.60 [facility] [address] [place] [id number] [address] [place] [address] Jul, Bipolar 1 disorder, mixed F3 1.60 [facility] [address] [place] [id number] [address] [place] [address] Jul, Bipolar 1 disorder, mixed F3 1.60 [facility] [address] [place] [id number] [address] [place] [address] Jul, Bipolar 1 disorder, mixed F3 1.60 [facility] [address] [address] 10 Jul, 2016 Bipolar 1 disorder, mixed F3 1.60 [place] [address] 08 Jul, 2016 Cervicalgia M54.2 ; Tremor R 25.1 ; Hearing abnormally acute, unspecified laterality H93.239 ; Alopecia L65.9 ; Encounter for immunization Z23 and Family history of thyroid disease Z83.49 [place] [address] [place] [address] 06 Jul, 2016 Bipolar 1 disorder, mixed F3 1.60 [place] [address] Jun, [place] [address] Jun, Hearing disorder, unspecifie d laterality H93.299 [place] [address] [place] [address] Jun, Bipolar 1 disorder, mixed F3 1.60 [place] [address] [place] [address] Jun, Bipolar 1 disorder, mixed F3 1.60 [place] [address] [address] Jun, Allergic rhinitis J30.9 [place] [address] [address] Jun, Bipolar 1 disorder, mixed F3 1.60 [place] [address] [address] Jun, Bipolar 1 disorder, mixed F3 1.60 [place] [address] [place] [address] Jun, Allergic rhinitis J30.9 [place] [address] [address] Jun, Allergic rhinitis J30.9 [facility] [address] [facility] [id number] [address] [place] [address] Jun, Bipolar 1 disorder, mixed F3 1.60 [facility] [address] [id number] [address] [place] [address] May, Bipolar 1 disorder, mixed F3 1.60 [facility] [address] [facility] [id number] [address] [place] [address] May, Bipolar 1 disorder, mixed F3 1.60 [facility] [address] [id number] [address] [place] [address] May, [facility] [address] [id number] [address] [place] [address] May, Bipolar 1 disorder, mixed F3 1.60 [facility] [address] [facility] [id number] [address] [place] [address] May, Bipolar 1 disorder, mixed F3 1.60 [facility] [address] [facility] [id number] [address] [place] [address] May, [facility] [address] [facility] [id number] [address] [place] [address] May, [facility] [address] [facility] [id number] [address] [place] [address] May, [facility] [address] [facility] [id number] [address] [place] [address] May, Abdominal pain, unspecified location R10.9 [facility] [address] [facility] [id number] [address] [place] [address] May, [facility] [address] [facility] [id number] [address] [place], [place] [address] Apr, Hematuria R31.9 ; Ataxia R27 .0 and Hearing loss, unspecified laterality H91.90 [facility] [address] [facility] [id number] [address] [place] [address] Apr, Bipolar 1 disorder, mixed F3 1.60 [facility] [address] [place] [id number] [address] [place] [address] Apr, Acute effusion of both middl e ears H65.193 [facility] [address] [place] [id number] [address] [place] [address] 10 Apr, 2016 Hematuria R31.9 and Pyelonep hritis N12 [facility] [address] [place] [address] Apr, [facility] [address] [place] [address] Mar, Bipolar 1 disorder, mixed F3 1.60 [facility] [address] [place] [id number] [address] [place] [address] Mar, [facility] [address] [address] Mar, Bipolar 1 disorder, mixed F3 1.60 [facility] [address] [place] [address] Mar, Bipolar 1 disorder, mixed F3 1.60 [facility] [address] [address] Mar, Encounter for immunization Z 23 and Gastritis without bleeding, unspecified chronicity, unspecified gastritis type K29.70 [facility] [address] [place] [address] Mar, Bipolar 1 disorder, mixed F3 1.60 and Grief F43.20 [place] [address] [place] [address] Mar, Gastritis without bleeding, unspecified chronicity, unspecified gastritis type K29.70 [facility] [address] [place] [id number] [address] [place] [address] Mar, Bipolar 1 disorder, mixed F3 1.60 [facility] [address] [place] [id number] [address] [place] [address] Mar, Gastritis without bleeding, unspecified chronicity, unspecified gastritis type K29.70 [facility] [address] [facility] [id number] [address] [place] [address] Mar, [facility] [address] [facility] [id number] [address] [place] [address] 27 Feb, 2016 Bipolar 1 disorder, mixed F3 1.60 [place] [address] [place] [id number] [address] [place] [address] Feb, Bipolar 1 disorder, mixed F3 1.60 and Grief F43.20 [place] [address] [facility] [id number] [address] [place] [id number] Feb, Gastritis without bleeding, unspecified chronicity, unspecified gastritis type K29.70 [place] [address] [place] [id number] [address] [place] [address] 14 Feb, 2016 Bipolar 1 disorder, mixed F3 1.60 [facility] [address] [facility] [id number] [address] [place] [address] 09 Feb, 2016 Gastroesophageal reflux dise ase, esophagitis presence not specified K21.9 [facility] [address] [place] [id number] [address] [place] [address] Jan, Bipolar 1 disorder, mixed F3 1.60 [place] [address] [place] [id number] [address] [place] [address] Jan, Bipolar 1 disorder, mixed F3 1.60 and Unsteady gait R26.81 [place] [address] [place] [id number] [address] [place] [address] Jan, Bipolar 1 disorder, mixed F3 1.60 [facility] [address] [place] [id number] [address] [place] [address] Jan, Bipolar 1 disorder, mixed F3 1.60 and Other fci (current) drug therapy Z79.899 [place] [address] [place] [id number] [address] [place] [address] Jan, Bipolar 1 disorder, mixed F3 1.60 [facility] [address] [facility] [id number] [address] [place] [address] Jan, Bipolar 1 disorder, mixed F3 1.60 [facility] [address] [facility] [id number] [address] [place] [address] Jan, Bipolar 1 disorder, mixed F3 1.60 ; Grief F43.20 and Other fci (current) drug therapy Z79.899 [facility] [address] [facility] [id number] [address] [place] [address] Jan, Bipolar 1 disorder, mixed F3 1.60 [place] [address] [place] [id number] [address] [place] [address] Dec, [place] [address] [place] [id number] [address] [place] [address] Dec, Bipolar 1 disorder, mixed F3 1.60 ; Vitamin D deficiency, unspecified E55.9 ; H/O allergic rhinitis Z87.09 ; Other chronic pain G89.29 and Dorsalgia, unspecified M54.9 [place] [address] [place] [id number] [address] [place] [address] Dec, [place] [address] [place] [id number] [address] [place] [address] Dec, Bipolar 1 disorder, mixed F3 1.60 [facility] [address] [facility] [id number] [address] [place] [address] Dec, Major depressive disorder, r ecurrent episode, moderate F33.1 [facility] [address] [facility] [id number] [address] [place] [address] Dec, Major depressive disorder, r ecurrent episode, moderate F33.1 [place] [address] [facility] [id number] [address] [place] [address] Nov, [place] [address] [facility] [id number] [address] [place] [address] Nov, Bipolar 1 disorder, mixed F3 1.60 [facility] [address] [facility] [id number] [address] [place] [address] Nov, Major depressive disorder, r ecurrent episode, moderate F33.1 [facility] [address] [facility] [id number] [address] [place] [address] Nov, Cervicalgia M54.2 ; Arthralg ia of hip, unspecified laterality M25.559 ; Allergic rhinitis J30.9 and Hormone replacement therapy Z79.890 [facility] [address] [facility] [id number] [address] [place] [address] Nov, Other seasonal allergic rhin itis J30.2 [place] [address] [address] [facility] [id number] [address] [place] [address] October, Major depressive disorder, r ecurrent episode, moderate F33.1 [place] [address] [place] [id number] [address] [place] [address] October, Major depressive disorder, r ecurrent episode, moderate F33.1 and Arthralgia of hip, unspecified laterality M25.559 [place] [address] [place] [address] October, Grief F43.20 ; Hypertension I10 ; Hyperlipidemia, unspecified hyperlipidemia type E78.5 ; Other chronic pain G89.29 and Allergic rhinitis, unspecified allergic rhinitis type J30.9 [place] [address] [facility] [id number] [address] [place] [address] October, Major depressive disorder, r ecurrent episode, moderate F33.1 [place] [address] [facility] [id number] [address] [place] [address] Sep, Major depressive disorder, r ecurrent episode, moderate F33.1 [place] [address] [facility] [id number] [address] [place] [address] Sep, [place] [address] [place] [id number] [address] [place] [address] Sep, Major depressive disorder, r ecurrent episode, moderate F33.1 [facility] [address] [facility] [id number] [address] [place] [address] Sep, Grief F43.20 [place] [address] [address] [facility] [id number] [address] [place] [address] Aug, Major depressive disorder, r ecurrent episode, moderate F33.1 [place] [address] [facility] [id number] [address] [place] [address] Aug, Bipolar 1 disorder, mixed F3 1.60 [place] [address] [address] [facility] [id number] [address] [place] [address] Aug, Allergic rhinitis J30.9 ; Ce rvicalgia M54.2 and Low back pain M54.5 [place] [address] [facility] [id number] [address] [place] [address] Aug, Major depressive disorder, r ecurrent episode, moderate F33.1 [facility] [address] [facility] [id number] [address] [place] [address] Aug, Sinusitis J32.9 and Tobacco 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 [facility] [address] [facility] [id number] [address] [place] [address] Aug, [facility] [address] [facility] [id number] [address] [place] [address] Aug, Depressive disorder, not els ewhere classified F32.9 ; Hormone replacement therapy Z79.[address] scan, head R93.0 [facility] [address] [facility] [id number] [address] [place] [address] Aug, Major depressive disorder, r ecurrent episode, moderate F33.1 [facility] [address] [facility] [id number] [address] [place] [address] Jul, Major depressive disorder, r ecurrent episode, moderate F33.1 [facility] [address] [facility] [id number] [address] [place] [address] Jul, Abdominal pain R10.9 and Hyp ertension I10 [facility] [address] [id number] [address] [place] [address] Jul, [facility] [address] [facility] [id number] [address] [place] [address] Jul, Major depressive disorder, r ecurrent episode, moderate F33.1 [facility] [address] [id number] [address] [place] [address] Jul, [facility] [address] [id number] [address] [place] [address] Jul, [facility] [address] [facility] [id number] [address] [place] [address] Jun, [facility] [address] [facility] [id number] [address] [place] [address] Jun, Depressive disorder, not els ewhere classified F32.9 [facility] [address] [id number] [address] [place] [address] Jun, [facility] [address] [facility] [id number] [address] [place] [address] Jun, [facility] [address] [facility] [id number] [address] [place] [address] Jun, Arthralgia of hip, unspecifi ed laterality M25.559 ; Bruising, spontaneous R23.3 and Night sweats R61 [facility] [address] [id number] [address] [place] [address] Jun, [facility] [address] [facility] [id number] [address] [place] [address] Jun, [facility] [address] [facility] [id number] [address] [place] [address] May, [facility] [address] [facility] [id number] [address] [place] [address] May, Myalgia M79.1 and Screening, lipid Z13.220 [facility] [address] [id number] [address] [place] [address] Apr, Status post cervical spinal fusion Z98.1 ; Fibromyalgia M79.7 and Unsteady gait R26.81 [facility] [address] [id number] [address] [place] [address] Nov, [facility] [address] [id number] [address] [place] [address] Nov, [facility] [address] [id number] [address] [place] [address] October, [facility] [address] [id number] [address] [place] [address] October, [facility] [address] [id number] [address] [place] [address] October, [facility] [address] [id number] [address] [place] [address] October, [facility] [address] [id number] [address] [place] [address] October, [facility] [address] [facility] [id number] [address] [place] [address] October, Dysuria 788.1 ; Nausea 787.0 2 and Urinary tract infection 599.0 [facility] [address] [id number] [address] [place] [address] Sep, [facility] [address] [id number] [address] [place] [address] Sep, [facility] [address] [id number] [address] [place] [address] Aug, [facility] [address] [id number] [address] [place] [address] Aug, [facility] [address] [id number] [address] [place] [address] 24 Aug, 2014 [facility] [address] [id number] [facility] [place] [address] 24 Aug, 2014 [facility] [address] [id number] [address] [place] [address], [place] [address] 23 Aug, 2014 [facility] [address] [id number] [address] [place] [address], [place] [address] 19 Aug, 2014 [facility] [address] [id number] [address] [place] [address], [place] [address] 19 Aug, 2014 [facility] [address] [id number] [address] [place] [address], [place] [address] 19 Aug, 2014 [facility] [address] [id number] [address] [place] [address], [place] [address] 19 Aug, 2014 [facility] [address] [id number] [address] [place] [address], [place] [address] 18 Aug, 2014 [facility] [address] [id number] [address] [place] [address], [place] [address] 18 Aug, 2014 [facility] [address] [id number] [address] [place] [address], [place] [address] 13 Aug, 2014 [facility] [address] [id number] [address] [place] [address], [place] [address] 13 Aug, 2014 [facility] [address] [id number] [address] [place] [address], [place] [address] 11 Aug, 2014 [facility] [address] [id number] [address] [place] [address], [place] [address] 11 Aug, 2014 [facility] [place] [facility] [address] [id number] [address] [place] [address], [place] [id number] 06 Aug, 2014 [facility] [place] [facility] [address] [id number] [address] [place] [address], [place] [id number] 06 Aug, 2014 [facility] [place] [facility] [address] [id number] [address] [place] [address], [place] [id number] 05 Aug, 2014 [facility] [place] [facility] [address] [id number] [address] [place] [id number] 05 Aug, 2014 [facility] [address] [id number] [address] [place] [address], [place] [id number] Aug, [facility] [place] [facility] [address] [id number] [address] [place] [address], [place] [id number] Aug, [facility] [place] [facility] [address] [id number] [address] [place] [address], [place] [id number] Aug, [facility] [place] [facility] [address] [id number] [address] [place] [address], [place] [id number] Jul, 2014 [facility] [place] [facility] [address] [id number] [address] [place] [address], [place] [id number] Jul, 2014 [facility] [place] [facility] [address] [id number] [address] [place] [address], [place] [id number] Jul, 2014 [facility] [place] [facility] [address] [id number] [address] [place] [address], [place] [id number] Jul, 2014 [facility] [address] [id number] [address] [place] [address], [place] [id number] Jul, [facility] [place] [facility] [address] [id number] [address] [place] [address], [place] [id number] Jul, [facility] [place] [facility] [address] [id number] [address] [place] [address], [place] [id number] Jul, 2014 [facility] [place] [facility] [address] [id number] [address] [place] [address], [place] [id number] Jul, 2014 [facility] [place] [facility] [address] [id number] [address] [place] [address], [place] [id number] Jul, [facility] [place] [facility] [address] [id number] [address] [place] [address], [place] [id number] Jul, 2014 [facility] [place] [facility] [address] [id number] [address] [place] [id number] 18 Jul, 2014 [facility] [place] [facility] [address] [id number] [address] [place] [id number] Jul, [facility] [address] [id number] [address] [place] [address], [place] [id number] Jul, [facility] [address] [id number] [address] [place] [address], [place] [id number] Jul, [facility] [address] [id number] [address] [place] [address], [place] [id number] Jun, [facility] [address] [id number] [address] [place] [address], [place] [id number] Jun, [facility] [address] [id number] [address] [place] [address], [place] [id number] Jun, [facility] [address] [id number] [address] [place] [address], [place] [address] Jun, [facility] [address] [id number] [address] [place] [address], [place] [address] Jun, [facility] [address] [id number] [address] [place] [address], [place] [address] Jun, [facility] [address] [id number] [address] [place] [address], [place] [address] May, [facility] [address] [id number] [address] [place] [address], [place] [address] May, [facility] [address] [id number] [address] [place] [address], [place] [address] May, [facility] [address] [id number] [address] [place] [address], [place] [address] May, [facility] [address] [id number] [address] [place] [address], [place] [address] May, [facility] [address] [id number] [address] [place] [address], [place] [address] May, [facility] [address] [id number] [address] [place] [address], [place] [address] Apr, [facility] [address] [id number] [address] [place] [address], [place] [address] Apr, [facility] [address] [id number] [address] [place] [address], [place] [address] Apr, [facility] [address] [id number] [address] [place] [address], [place] [address] Apr, [facility] [address] [id number] [address] [place] [address], [place] [address] Apr, [facility] [address] [id number] [address] [place] [address], [place] [address] Apr, [facility] [address] [id number] [address] [place] [address], [place] [address] Mar, [facility] [address] [id number] [address] [place] [address], [place] [address] Mar, [facility] [address] [id number] [address] [place] [address], [place] [address] Mar, [facility] [address] [id number] [address] [place] [address], [place] [address] Mar, [facility] [address] [id number] [address] [place] [address], [place] [address] Mar, [facility] [address] [id number] [address] [place] [address], [place] [address] Mar, [facility] [address] [id number] [address] [place] [address], [place] [address] Mar, [facility] [address] [id number] [address] [place] [address], [place] [address] Mar, [facility] [address] [id number] [address] [place] [address], [place] [address] Mar, [facility] [address] [id number] [address] [place] [address], [place] [address] Mar, [facility] [address] [id number] [address] [place] [address], [place] [address] Mar, [facility] [address] [id number] [facility] [place] [place] [address] Mar, [facility] [address] [id number] [address] [place] [address], [place] [address] Feb, [facility] [address] [id number] [address] [place] [address], [place] [address] Feb, [facility] [address] [id number] [address] [place] [address], [place] [address] Feb, [facility] [address] [id number] [address] [place] [address], [place] [address] Feb, [facility] [address] [id number] [address] [place] [address], [place] [address] Feb, [facility] [address] [id number] [address] [place] [address], [place] [address] Feb, [facility] [address] [id number] [address] [place] [address], [place] [address] Feb, [facility] [address] [id number] [address] [place] [address], [place] [address] Jan, [facility] [address] [id number] [address] [place] [address], [place] [address] Jan, [facility] [address] [id number] [address] [place] [address], [place] [address] Jan, [facility] [address] [id number] [address] [place] [address], [place] [address] Dec, [facility] [address] [id number] [address] [place] [address], [place] [address] Dec, [facility] [address] [id number] [address] [place] [address], [place] [address] Dec, [facility] [address] [id number] [address] [place] [address], [place] [address] Dec, [facility] [address] [id number] [address] [place] [address], [place] [address] Sep, [facility] [address] [id number] [address] [place] [address], [place] [address] Sep, [facility] [address] [id number] [address] [place] [address], [place] [address] Sep, [facility] [address] [id number] [address] [place] [address], [place] [address] Sep, [facility] [address] [id number] [address] [place] [address], [place] [address] Sep, [facility] [address] [id number] [address] [place] [address], [place] [address] Sep, [facility] [address] [id number] [address] [place] [address], [place] [address] Sep, [facility] [address] [id number] [address] [place] [address], [place] [address] Sep, [facility] [address] [id number] [address] [place] [address], [place] [address] Aug, [facility] [address] [id number] [address] [place] [address], [place] [address] Aug, [facility] [address] [id number] [address] [place] [address], [place] [address] May, [facility] [address] [id number] [address] [place] [address], [place] [address] May, [facility] [address] [id number] [address] [place] [address], [place] [address] Apr, [facility] [address] [id number] [address] [place] [address], [place] [address] Apr, [facility] [address] [id number] [address] [place] [address], [place] [address] Apr, [facility] [address] [id number] [address] [place] [address], [place] [address] Apr, [facility] [address] [id number] [address] [place] [address], [place] [address] Apr, [facility] [address] [id number] [address] [place] [address], [place] [address] Apr, [facility] [address] [id number] [address] [place] [address], [place] [address] 18 May, 2012 [facility] [address] [id number] [address] [place] [address], [place] [address] 18 May, 2012 [facility] [address] [id number] [address] [place] [address], [place] [address] 15 May, 2012 [facility] [address] [id number] [address] [place] [address], [place] [address] 15 May, 2012 [facility] [address] [id number] [address] [place] [address], [place] [address] 13 May, 2012 [facility] [address] [id number] [address] [place] [address], [place] [address] May, [facility] [address] [id number] [address] [place] [address], [place] [address] Apr, [facility] [address] [id number] [address] [place] [address], [place] [address] 13 Apr, 2012 [facility] [address] [id number] [address] [place] [address], [place] [address] Apr, [facility] [address] [id number] [address] [place] [address], [place] [address] Apr, [facility] [address] [id number] [address] [place] [address], [place] [address] Apr, [facility] [address] [id number] [address] [place] [address], [place] [address] Apr, [facility] [address] [id number] [address] [place] [address], [place] [address] 07 Apr, 2012 [facility] [address] [id number] [address] [address] Apr, [facility] [address] [id number] [address] [place] [address], [place] [address] Apr, [facility] [address] [id number] [address] [place] [address], [place] [address] Apr, [facility] [address] [id number] [address] [place] [address], [place] [address] Mar, [facility] [address] [id number] [address] [place] [address] Mar, [facility] [address] [id number] [address] [place] [address], [place] [address] Mar, [facility] [address] [id number] [address] [place] [address] Mar, [facility] [address] [id number] [address] [place] [address], [place] [address] Mar, [facility] [address] [id number] [address] [place] [address] Mar, [facility] [address] [id number] [address] [place] [address] Mar, [facility] [address] [id number] [address] [place] [address] Mar, [facility] [address] [id number] [address] [place] [address] Mar, [facility] [address] [id number] [address] [place] [address] Feb, [facility] [address] [id number] [address] [place] [address], [place] [address] 16 Feb, 2012 [facility] [address] [id number] [address] [place] [address], [place] [address] 11 Feb, 2012 [facility] [address] [id number] [address] [place] [address] Jan, [facility] [address] [id number] [address] [place] [address], [place] [address] Jan, [facility] [address] [id number] [address] [place] [address], [place] [address] Jan, [facility] [address] [id number] [address] [place] [address], [place] [address] 18 Jan, 2012 [facility] [address] [id number] [address] [place] [address], [place] [address] Jan, [facility] [address] [id number] [address] [place] [address], [place] [address] Jan, [facility] [address] [id number] [address] [place] [address], [place] [address] 16 Jan, 2012 [facility] [address] [id number] [address] [place] [address], [place] [address] Jan, [facility] [address] [id number] [address] [place] [address], [place] [address] Jan, [facility] [address] [id number] [address] [place] [address], [place] [address] Jan, [facility] [address] [id number] [address] [place] [address], [place] [address] Dec, [facility] [address] [id number] [address] [place] [address], [place] [address] Dec, [facility] [address] [id number] [address] [place] [address], [place] [address] Dec, [facility] [address] [id number] [address] [place] [address], [place] [address] Dec, [facility] [address] [id number] [address] [place] [address], [place] [address] Nov, [facility] [address] [id number] [address] [place] [address], [place] [address] Nov, [facility] [address] [id number] [address] [place] [address], [place] [address] Nov, [facility] [address] [id number] [address] [place] [address] October, [facility] [address] [id number] [address] [place] [address] October, [facility] [address] [id number] [address] [place] [address] October, [facility] [address] [id number] [address] [place] [address] October, [facility] [address] [id number] [address] [place] [address] October, [facility] [address] [id number] [address] [place] [address] October, [facility] [address] [id number] [address] [place] [address] Aug, [facility] [address] [id number] [address] [place] [address] Mar, [facility] [address] [id number] [address] [place] [address] Nov, [facility] [address] [id number] [address] [place] [address] May, [facility] [address] [id number] [address] [place] [address] May, [facility] [address] [id number] [address] [place] [address] Apr, [facility] [address] [id number] [address] [place] [address] Mar, [facility] [address] [id number] [address] [place] [address] Mar, IMMUNIZATIONS No Known Immunizations SOCIAL HISTORY Never Assessed REASON FOR VISIT PLAN OF CARE VITAL SIGNS Height 64 in 2012-04-24 Weight 127 lbs 2012-04-24 Temperature 97.4 degrees Fahrenheit 2012-04-24 Heart Rate 76 bpm 2012-04-24 Respiratory Rate 20 2012-04-24 Blood pressure systolic 154 mmHg 2012-04-24 Blood pressure diastolic 82 mmHg 2012-04-24 MEDICATIONS Unknown Medications RESULTS No Results PROCEDURES Procedure Date Ordered Result Body Site THER/PROPH/DIAG INJ, SC/IM Apr 24, 2012 INJ KETOROLAC TROMETHAMINE 15 MG Apr 24, 2012 RHEUMATOID FACTOR, QUANT Apr 24, 2012 C-REACTIVE PROTEIN Apr 24, 2012 RBC SED RATE, AUTOMATED Apr 24, 2012 VENIPUNCT, ROUTINE* Apr 24, 2012 INSTRUCTIONS MEDICATIONS ADMINISTERED No Known Medications [...]
--- OUTSIDE RECORDS SUMMARY | 2019-06-19 05:18 | XMS REPORT ---
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 Name Role Phone NAHOMY HANCOCK Unavailable PROBLEMS Type Condition ICD9-CM Code TNB38-XC Code Onset Dates Condition S tatus SNOMED Code Problem Age-related osteoporosis without current pathological fracture M81.0 Active 99836105 Problem Sensorineural hearing loss (SNHL) of both ears H90 .3 Active [address]04 Problem Ab[address] CT scan, head R93.0 Active 395416199 Problem Arthralgia of hip, unspecified laterality M25.559 Active 00343007 Problem Bruising, spontaneous R23.3 Active 435149418 Problem Hypertension I10 Active 1014314 3 Problem Night sweats R61 Active 5529171 0 Problem Imbalance R26.89 Active 356811382 Problem Hammer toe of right foot M20.41 Activ e 131063542 Problem Hormone replacement therapy Z79.890 Ac tive 363122395 Problem Bipolar 1 disorder, mixed F31.60 Acti ve 90074243 Problem Gastritis without bleeding, unspecified chronicity, unspecified gastritis type K29.70 Active 693249204 Problem Ataxia R27.0 Active 49949786 Problem Hearing loss, unspecified laterality H91.90 Active 26857032 Problem History of colon polyps Z86.010 Active 316712333 Problem Allergic rhinitis J30.9 Active 61 683684 Problem Hematuria, unspecified type R31.9 Ac tive 51377721 Problem Generalized anxiety disorder F41.1 A ctive 56792672 Problem Major depressive disorder, recurrent episode, moderate F33.1 Active 419150508 Problem Fibromyalgia M79.7 Active 9991694 7 Problem Bladder spasm N32.89 Active 454638 006 Problem Tobacco use disorder F17.200 Active 753987624 Problem Other chronic pain G89.29 Active 8 3554817 Problem Post menopausal syndrome N95.1 Activ e 646573529 Problem Grief F43.20 Active 04747164 Problem Hyperlipidemia, unspecified hyperlipidemia type E7 8.5 Active 31345819 Problem Acute left-sided low back pain with left-sided sciatica M54.42 Active 139364568 Problem Sciatica of left side M54.32 Active 49749698 Problem Plantar wart of right foot B07.0 Act mitchell [id number] Problem Slow transit constipation K59.01 Acti ve 83499689 ALLERGIES No Information ENCOUNTERS Encounter Location Date Diagnosis [facility] [address] [place] [id number] [place] [phone] Jan, [facility] [address] [facility] [id number] [address] [place] [address] Dec, [facility] [address] [id number] [place] [phone] Dec, [facility] [address] [id number] [place] [address] Dec, [facility] [address] [id number] [place] [phone] Nov, Bipolar 1 disorder, mixed F3 1.60 [facility] [address] [id number] [place] [address] Nov, Bipolar 1 disorder, mixed F3 1.60 ; Generalized anxiety disorder F41.1 ; Tobacco use disorder F17.200 and 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 [facility] [address] [id number] [place] [address] Nov, [facility] [address] [id number] [place] [address] Nov, Bipolar 1 disorder, mixed F3 1.60 [facility] [address] [id number] [place] [address] October, Bipolar 1 disorder, mixed F3 1.60 [facility] [address] [id number] [place] [address] October, Bipolar 1 disorder, mixed F3 1.60 [place] [address] [place] [address] October, [place] [address] [address] October, Bipolar 1 disorder, mixed F3 1.60 ; Generalized anxiety disorder F41.1 and Tobacco use disorder F17.200 [place] [address] [address] Sep, [place] [address] [place] [id number] [place] [address] Sep, Encounter for Medicare annua wellness exam Z00.00 ; Major depressive disorder, recurrent episode, moderate F33.1 ; Allergic rhinitis J30.9 ; Bipolar 1 disorder, mixed F31.60 ; Fibromyalgia M79.7 ; Hyperlipidemia, unspecified hyperlipidemia type E78.5 ; Hormone replacement therapy Z79.890 ; Encounter for screening for lung cancer Z12.2 and Tobacco use disorder F17.200 [place] [address] [place] [id number] [address] [place] [address] Sep, Bipolar 1 disorder, mixed F3 1.60 [place] [address] [address] Sep, Other chronic pain G89.29 ; Hyperlipidemia, unspecified hyperlipidemia type E78.5 ; Breast cancer screening Z12.31 and Post menopausal syndrome N95.1 [place] [address] [place] [address] Sep, Bipolar 1 disorder, mixed F3 1.60 [place] [address] [place] [id number] [place] [phone] Sep, Bipolar 1 disorder, mixed F3 1.60 ; Generalized anxiety disorder F41.1 and Tobacco use disorder F17.200 [place] [address] [place] [id number] [place] [address] Sep, Gastritis without bleeding, unspecified chronicity, unspecified gastritis type K29.70 [place] [address] [facility] [id number] [address] [place] [address] 08 Sep, 2018 Exercise counseling Z71.82 [place] [address] [facility] [id number] [address] [place] [address] Aug, Exercise counseling Z71.82 [place] [address] [place] [id number] [place] [address] Aug, Bipolar 1 disorder, mixed F3 1.60 [place] [address] [facility] [id number] [address] [place] [phone] Aug, Exercise counseling Z71.82 [place] [address] [place] [id number] [place] [address] Aug, Bipolar 1 disorder, mixed F3 1.60 [place] [address] [place] [id number] [place] [address] Aug, Gastritis without bleeding, unspecified chronicity, unspecified gastritis type K29.70 ; Tobacco abuse Z72.0 ; Generalized anxiety disorder F41.1 and Weight gain R63.5 [place] [address] [facility] [id number] [address] [place] [address] Aug, Bipolar 1 disorder, mixed F3 1.60 ; Generalized anxiety disorder F41.1 and Tobacco use disorder F17.200 [place] [address] [place] [id number] [place] [address] Jul, Bipolar 1 disorder, mixed F3 1.60 [place] [address] [facility] [id number] [address] [place] [address] Jul, [place] [address] [facility] [id number] [address] [place] [phone] Jul, Bipolar 1 disorder, mixed F3 1.60 [place] [address] [facility] [id number] [address] [place] [address] 11 Jul, 2018 Allergic rhinitis J30.9 ; Ma darion depressive disorder, recurrent episode, moderate F33.1 and Tobacco 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 [facility] [address] [id number] [address] [place] [address] Jun, [facility] [address] [id number] [address] [place] [address] Jun, [facility] [address] [facility] [id number] [address] [place] [address] Jun, Bipolar 1 disorder, mixed F3 1.60 [facility] [address] [facility] [id number] [address] [place] [address] Jun, Bipolar 1 disorder, mixed F3 1.60 [facility] [address] [id number] [address] [place] [address] Jun, Bipolar 1 disorder, mixed F3 1.60 [facility] [address] [facility] [id number] [address] [place] [phone] Jun, Generalized anxiety disorder F41.1 ; Tobacco abuse Z72.0 and Major depressive disorder, recurrent episode, moderate F33.1 [facility] [address] [facility] [id number] [address] [place] [address] May, Bipolar 1 disorder, mixed F3 1.60 [facility] [address] [facility] [id number] [address] [place] [phone] May, Bipolar 1 disorder, mixed F3 1.60 and Generalized anxiety disorder F41.1 [facility] [address] [facility] [id number] [address] [place] [address] May, Bipolar 1 disorder, mixed F3 1.60 [facility] [address] [facility] [id number] [address] [place] [phone] May, Allergic rhinitis J30.9 [facility] [address] [facility] [id number] [address] [place] [address] May, Bipolar 1 disorder, mixed F3 1.60 [facility] [address] [facility] [id number] [address] [place] [address] May, [facility] [address] [id number] [place] [address] Apr, Allergic rhinitis J30.9 ; Dy sfunction of both eustachian tubes H69.83 ; History of bladder surgery Z98.890 and Cervicalgia M54.2 [facility] [address] [id number] [place] [address] Mar, Bipolar 1 disorder, mixed F3 1.60 [place] [address] [address] Mar, [place] [address] [address] Mar, Slow transit constipation K5 9.01 ; Encounter for immunization Z23 and Generalized anxiety disorder F41.1 [place] [address] [place] [id number] [place] [phone] 27 Feb, 2018 Bipolar 1 disorder, mixed F3 1.60 [place] [address] [place] [phone] 26 Feb, 2018 Allergic rhinitis J30.9 [facility] [id number] [place] [phone] 24 Feb, 2018 Bipolar 1 disorder, mixed F3 1.60 [place] [address] [place] [id number] [place] [phone] 20 Feb, 2018 Bipolar 1 disorder, mixed F3 1.60 and Generalized anxiety disorder F41.1 [place] [address] [place] [id number] [place] [phone] 13 Feb, 2018 Bipolar 1 disorder, mixed F3 1.60 [place] [address] [place] [id number] [place] [phone] 11 Feb, 2018 Allergic rhinitis J30.9 [facility] [address] [id number] [place] [address] 05 Feb, 2018 [facility] [address] [id number] [place] [address] Jan, Bipolar 1 disorder, mixed F3 1.60 [facility] [address] [id number] [place] [address] Jan, Low back pain M54.5 ; Hyperl ipidemia, unspecified hyperlipidemia type E78.5 and Bipolar 1 disorder, mixed F31.60 [facility] [id number] [place] [address] Jan, Bipolar 1 disorder, mixed F3 1.60 [facility] [address] [id number] [place], [place] [address] Jan, Bipolar 1 disorder, mixed F3 1.60 [facility] [id number] [place] [address] Jan, Bipolar 1 disorder, mixed F3 1.60 [facility] [id number] [place] [address] Jan, Bipolar 1 disorder, mixed F3 1.60 [facility] [id number] [place] [address] Dec, Bipolar 1 disorder, mixed F3 1.60 ; Generalized anxiety disorder F41.1 and 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 [facility] [id number] [place] [address] Dec, Other fci (current) dr ug therapy Z79.899 [facility] [id number] [place] [address] Dec, Bipolar 1 disorder, mixed F3 1.60 [facility] [id number] [place] [address] Dec, Bipolar 1 disorder, mixed F3 1.60 [facility] [id number] [place], [place] [id number] Nov, Bipolar 1 disorder, mixed F3 1.60 [facility] [id number] [place] [address] Nov, Bipolar 1 disorder, mixed F3 1.60 [place] [id number] [place] [id number] [place] [phone] 13 Nov, 2017 Bipolar 1 disorder, mixed F3 1.60 [place] [address] [facility] [id number] [address] [place] [address] Nov, Allergic rhinitis J30.9 [facility] [address] [place] [address] Nov, Allergic rhinitis J30.9 [place] [address] [place] [id number] [place] [address] Nov, [place] [address] [address] Nov, Bipolar 1 disorder, mixed F3 1.60 [place] [address] [address] Nov, Fibromyalgia M79.7 and Aller gic rhinitis J30.9 [place] [address] [place] [address] October, Bipolar 1 disorder, mixed F3 1.60 [facility] [place] [address] [address] October, Acute nasopharyngitis J00 [facility] [place] [address] [address] October, Bitten or stung by nonvenomo us insect and other nonvenomous arthropods, initial encounter W57.XXXA and Insect bite (nonvenomous) of abdominal wall, initial encounter S30.861A [place] [address] [address] October, Insect bite (nonvenomous) of abdominal wall, initial encounter S30.861A ; Bitten or stung by nonvenomous insect and other nonvenomous arthropods, initial encounter W57.XXXA ; Allergic rhinitis J30.9 and Low back pain M54.5 [place] [address] [id number] [address] [place] [address] October, Bipolar 1 disorder, mixed F3 1.60 [facility] [address] [id number] [address] [place] [address] October, [facility] [address] [id number] [address] [place] [address] October, [facility] [address] [id number] [address] [place] [address] October, Bipolar 1 disorder, mixed F3 1.60 [facility] [address] [id number] [address] [place] [address] Sep, Bipolar 1 disorder, mixed F3 1.60 [facility] [address] [facility] [id number] [address] [place] [address] Sep, Other chronic pain G89.29 [facility] [address] [id number] [address] [place] [address] Sep, [facility] [address] [id number] [address] [place] [address] Sep, Bipolar 1 disorder, mixed F3 1.60 [facility] [address] [facility] [id number] [address] [place] [address] Sep, Allergic rhinitis J30.9 and Sciatica of left side M54.32 [facility] [address] [facility] [id number] [address] [place] [address] Sep, Bipolar 1 disorder, mixed F3 1.60 [facility] [address] [id number] [address] [place] [address] Sep, Bipolar 1 disorder, mixed F3 1.60 and Generalized anxiety disorder F41.1 [facility] [address] [facility] [id number] [address] [place] [phone] Aug, [facility] [address] [facility] [id number] [address] [place] [address] Aug, Bipolar 1 disorder, mixed F3 1.60 [facility] [address] [id number] [address] [place] [address] Aug, Bipolar 1 disorder, mixed F3 1.60 [facility] [address] [facility] [id number] [address] [place] [phone] Aug, [facility] [address] [facility] [id number] [address] [place] [phone] Aug, Generalized anxiety disorder F41.1 [facility] [address] [facility] [id number] [address] [place] [address] Aug, Bipolar 1 disorder, mixed F3 1.60 [facility] [address] [facility] [id number] [address] [place] [address] Aug, Plantar wart of right foot B 07.0 [facility] [address] [facility] [id number] [address] [place] [address] Aug, Bipolar 1 disorder, mixed F3 1.60 [facility] [address] [facility] [id number] [address] [place] [address] Jul, Bipolar 1 disorder, mixed F3 1.60 [facility] [address] [facility] [id number] [address] [place] [phone] Jul, [facility] [address] [facility] [id number] [address] [place] [phone] 14 Jul, 2017 Bipolar 1 disorder, mixed F3 1.60 [facility] [address] [facility] [id number] [address] [place] [address] Jul, Generalized anxiety disorder F41.1 [facility] [address] [facility] [id number] [address] [place] [address] Jul, Bipolar 1 disorder, mixed F3 1.60 [facility] [address] [facility] [id number] [address] [place] [address] 07 Jul, 2017 Acute left-sided low back pa in with left-sided sciatica M54.42 [facility] [address] [address] Jul, Coccydynia M53.3 [place] [address] [address] Jun, Bipolar 1 disorder, mixed F3 1.60 [facility] [address] [address] Jun, Acute nasopharyngitis J00 [place] [address] [address] Jun, Bipolar 1 disorder, mixed F3 1.60 [place] [address] [address] Jun, Fibromyalgia M79.7 [place] [address] [address] Jun, Bipolar 1 disorder, mixed F3 1.60 [place] [address] [address] Jun, Fibromyalgia M79.7 and Bipol ar 1 disorder, mixed F31.60 [place] [address] [address] May, Bipolar 1 disorder, mixed F3 1.60 ; Generalized anxiety disorder F41.1 and 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 [place] [address] [address] May, Bipolar 1 disorder, mixed F3 1.60 [facility] [address] [address] May, Cough R05 and Body aches R52 [facility] [address] [address] May, Bladder spasm N32.89 and Acu te cystitis without hematuria N30.00 [place] [address] [address] 07 May, 2017 Bipolar 1 disorder, mixed F3 1.60 [facility] [address] [place] [address] 30 Apr, 2017 [facility] [address] Apr, Major depressive disorder, r ecurrent episode, moderate F33.1 and Encounter for immunization Z23 [facility] [address] [place] [address] Apr, Bipolar 1 disorder, mixed F3 1.60 [facility] [address] Apr, Bipolar 1 disorder, mixed F3 1.60 [place] [address] 16 Apr, 2017 Bipolar 1 disorder, mixed F3 1.60 [facility] [address] [address] Apr, Yeast vaginitis B37.3 [facility] [address] [address] 09 Apr, 2017 Bipolar 1 disorder, mixed F3 1.60 [facility] [address] [place] [id number] [place] [address] 07 Apr, 2017 Cellulitis L03[address] for immunization Z23 [facility] [address] [place] [id number] [address] [place] [address] Apr, Bipolar 1 disorder, mixed F3 1.60 [facility] [address] [address] Mar, Bipolar 1 disorder, mixed F3 1.60 [facility] [address] [address] Mar, Bipolar 1 disorder, mixed F3 1.60 [facility] [address] [address] Mar, Imbalance R26.89 and Encount er for immunization Z23 [place] [address] [place] [address] Mar, Generalized anxiety disorder F41.1 [place] [address] [place] [id number] [place] [address] Mar, Bipolar 1 disorder, mixed F3 1.60 [place] [address] [place] [id number] [place] [address] Mar, Generalized anxiety disorder F41.1 [place] [address] [place] [id number] [place] [phone] Mar, Bipolar 1 disorder, mixed F3 1.60 [place] [address] [place] [id number] [address] [place] [phone] Mar, Bipolar 1 disorder, mixed F3 1.60 [place] [address] [place] [id number] [address] [place] [phone] Feb, Bipolar 1 disorder, mixed F3 1.60 [place] [address] [phone] Feb, Bipolar 1 disorder, mixed F3 1.60 and Generalized anxiety disorder F41.1 [place] [address] [place] [id number] [address] [place] [phone] Feb, Gastritis without bleeding, unspecified chronicity, unspecified gastritis type K29.70 ; Hammer toe of right foot M20.41 and Other viral warts B07.8 [place] [address] [place] [id number] [address] [place] [id number] Feb, Bipolar 1 disorder, mixed F3 1.60 [place] [address] [place] [id number] [address] [place] [phone] Feb, Bipolar 1 disorder, mixed F3 1.60 [place] [address] [place] [id number] [address] [place] [phone] 05 Feb, 2017 Bipolar 1 disorder, mixed F3 1.60 [facility] [address] [facility] [id number] [address] [place] [phone] Jan, Encounter for screening mamm ogram for breast cancer Z12.31 ; Other viral warts B07.8 and Allergic rhinitis J30.9 [facility] [address] [facility] [id number] [address] [place] [phone] Jan, Bipolar 1 disorder, mixed F3 1.60 [facility] [address] [facility] [id number] [address] [place] [phone] Jan, Bipolar 1 disorder, mixed F3 1.60 [place] [address] [facility] [id number] [address] [place] [phone] Jan, [facility] [address] [facility] [id number] [address] [place] [phone] Jan, Bipolar 1 disorder, mixed F3 1.60 [place] [address] [facility] [id number] [address] [place] [address] Jan, Bipolar 1 disorder, mixed F3 1.60 [facility] [address] [facility] [id number] [address] [place] [phone] Jan, Allergic rhinitis J30.9 ; He maturia R31.9 and Colon cancer screening Z12.11 [facility] [address] [facility] [id number] [address] [place] [phone] Dec, Bipolar 1 disorder, mixed F3 1.60 [facility] [address] [facility] [id number] [address] [place] [address] Dec, Bipolar 1 disorder, mixed F3 1.60 ; Generalized anxiety disorder F41.1 and Other fci (current) drug therapy Z79.899 [facility] [address] [facility] [id number] [address] [place] [phone] Dec, Bipolar 1 disorder, mixed F3 1.60 [facility] [address] [facility] [id number] [address] [place] [phone] Dec, Bipolar 1 disorder, mixed F3 1.60 [facility] [address] [facility] [id number] [address] [place] [phone] Dec, Bipolar 1 disorder, mixed F3 1.60 [facility] [address] [facility] [id number] [address] [place] [phone] Dec, Low back pain M54.5 and Recu rrent urinary tract infection N39.0 [facility] [address] [facility] [id number] [address] [place] [phone] Nov, Bipolar 1 disorder, mixed F3 1.60 [facility] [address] [facility] [id number] [address] [place] [phone] Nov, Bipolar 1 disorder, mixed F3 1.60 [place] [address] [place] [id number] [address] [place] [phone] Nov, Bipolar 1 disorder, mixed F3 1.60 [facility] [address] [place] [id number] [address] [place] [phone] Nov, Bipolar 1 disorder, mixed F3 1.60 [facility] [address] [facility] [id number] [address] [place] [phone] Nov, [place] [address] [place] [id number] [address] [place] [phone] Nov, Anesthesia of skin R20.0 ; F requent UTI N39.0 ; Tobacco abuse Z72.0 and Colon cancer screening Z12.11 [facility] [address] [facility] [id number] [address] [place] [phone] Nov, Bipolar 1 disorder, mixed F3 1.60 [facility] [address] [facility] [id number] [address] [place] [phone] October, Bipolar 1 disorder, mixed F3 1.60 [facility] [address] [facility] [id number] [address] [place] [phone] October, Bipolar 1 disorder, mixed F3 1.60 [facility] [address] [place] [id number] [address] [place] [phone] October, Bipolar 1 disorder, mixed F3 1.60 [place] [address] [place] [id number] [address] [place] [phone] October, Bipolar 1 disorder, mixed F3 1.60 [place] [address] [place] [id number] [address] [place] [phone] October, Bipolar 1 disorder, mixed F3 1.60 [place] [address] [address] October, Cervicalgia M54.2 and Bipola r 1 disorder, mixed F31.60 [place] [address] [address] October, Hypertension I10 ; Hyperlipi demia, unspecified hyperlipidemia type E78.5 and Family history of thyroid disease Z83.49 [place] [address] [address] October, [place] [address] [address] October, Hypertension I10 ; Hyperlipi demia, unspecified hyperlipidemia type E78.5 and Family history of thyroid problem Z83.49 [place] [address] [address] October, Bipolar 1 disorder, mixed F3 1.60 [place] [address] [address] Sep, Bipolar 1 disorder, mixed F3 1.60 [place] [address] [place] [id number] [address] [place] [phone] Sep, Bipolar 1 disorder, mixed F3 1.60 [place] [address] [place] [id number] [place] [phone] Sep, Bipolar 1 disorder, mixed F3 1.60 [place] [address] [place] [id number] [address] [place] [address] Sep, History of colon polyps Z86. 010 and Hematochezia K92.1 [facility] [address] [place] [id number] [address] [place] [phone] Sep, Major depressive disorder, r ecurrent episode, moderate F33.1 [facility] [address] [facility] [id number] [address] [place] [phone] Sep, Bipolar 1 disorder, mixed F3 1.60 [facility] [address] [facility] [id number] [address] [place] [address] Aug, Hot flashes due to menopause N95.1 [facility] [address] [facility] [id number] [address] [place] [address] Aug, Bipolar 1 disorder, mixed F3 1.60 [place] [address] [place] [id number] [address] [place] [phone] Aug, [place] [address] [place] [id number] [address] [place] [phone] Aug, Bipolar 1 disorder, mixed F3 1.60 [place] [address] [place] [id number] [address] [place] [phone] Aug, Bipolar 1 disorder, mixed F3 1.60 [place] [address] [place] [id number] [address] [place] [address] Aug, Hot flashes due to menopause N95.1 ; Cervicalgia M54.2 and Ataxia R27.0 [facility] [address] [facility] [id number] [address] [place] [id number] Jul, Bipolar 1 disorder, mixed F3 1.60 [place] [address] [facility] [id number] [address] [place] [address] Jul, Bipolar 1 disorder, mixed F3 1.60 [facility] [address] [facility] [id number] [address] [place] [address] Jul, Bipolar 1 disorder, mixed F3 1.60 [facility] [address] [place] [id number] [address] [place] [phone] 13 Jul, 2016 Bipolar 1 disorder, mixed F3 1.60 [facility] [id number] Jul, Bipolar 1 disorder, mixed F3 1.60 [facility] [address] [place] [id number] [address] [place] [address] 08 Jul, 2016 Cervicalgia M54.2 ; Tremor R 25.1 ; Hearing abnormally acute, unspecified laterality H93.239 ; Alopecia L65.9 ; Encounter for immunization Z23 and Family history of thyroid disease Z83.49 [place] [address] Jul, Bipolar 1 disorder, mixed F3 1.60 [place] [address] [place] [id number] Jun, [place] [address] [place] [address] Jun, Hearing disorder, unspecifie d laterality H93.299 [place] [address] [address] Jun, Bipolar 1 disorder, mixed F3 1.60 [facility] [address] [place] [id number] [address] [place] [address] Jun, Bipolar 1 disorder, mixed F3 1.60 [place] [address] [place] [address] Jun, Allergic rhinitis J30.9 [facility] [address] [place] [id number] [address] [place] [phone] Jun, Bipolar 1 disorder, mixed F3 1.60 [place] [address] [place] [id number] [address] [place], [place] [id number] Jun, Bipolar 1 disorder, mixed F3 1.60 [facility] [address] [place] [id number] [address] [place] [phone] Jun, Allergic rhinitis J30.9 [facility] [address] [facility] [id number] [address] [place] [phone] Jun, Allergic rhinitis J30.9 [facility] [address] [facility] [id number] [address] [place] [phone] Jun, Bipolar 1 disorder, mixed F3 1.60 [facility] [address] [facility] [id number] [address] [place] [address] May, Bipolar 1 disorder, mixed F3 1.60 [facility] [address] [id number] [address] [place] [phone] May, Bipolar 1 disorder, mixed F3 1.60 [facility] [address] [facility] [id number] [address] [place] [phone] May, [facility] [address] [facility] [id number] [address] [place] [address] May, Bipolar 1 disorder, mixed F3 1.60 [facility] [address] [facility] [id number] [address] [place] [address] May, Bipolar 1 disorder, mixed F3 1.60 [facility] [address] [facility] [id number] [address] [place] [phone] May, [facility] [address] [facility] [id number] [address] [place] [address] May, [facility] [address] [place] [id number] [address] [place] [phone] May, [facility] [address] [facility] [id number] [address] [place] [address] May, Abdominal pain, unspecified location R10.9 [facility] [address] [facility] [id number] [address] [place] [address] May, [facility] [address] [facility] [id number] [address] [place] [address] Apr, Hematuria R31.9 ; Ataxia R27 .0 and Hearing loss, unspecified laterality H91.90 [place] [id number] [place] [address] Apr, Bipolar 1 disorder, mixed F3 1.60 [facility] [address] [place] [id number] [address] [place] [phone] Apr, Acute effusion of both middl e ears H65.193 [place] [address] [place] [id number] [address] [place] [address] 10 Apr, 2016 Hematuria R31.9 and Pyelonep hritis N12 [place] [address] [address] Apr, [place] [address] [address] Mar, Bipolar 1 disorder, mixed F3 1.60 [place] [address] [address] Mar, [place] [address] [address] Mar, Bipolar 1 disorder, mixed F3 1.60 [place] [address] [address] Mar, Bipolar 1 disorder, mixed F3 1.60 [place] [address] [address] Mar, Encounter for immunization Z 23 and Gastritis without bleeding, unspecified chronicity, unspecified gastritis type K29.70 [place] [address] [place] [id number] [address] [place] [address] Mar, Bipolar 1 disorder, mixed F3 1.60 and Grief F43.20 [place] [address] [address] Mar, Gastritis without bleeding, unspecified chronicity, unspecified gastritis type K29.70 [place] [address] [address] Mar, Bipolar 1 disorder, mixed F3 1.60 [facility] [address] [place] [id number] [address] [place] [address] Mar, Gastritis without bleeding, unspecified chronicity, unspecified gastritis type K29.70 [facility] [address] [place] [id number] [address] [place] [address] Mar, [place] [address] [place] [address] Feb, Bipolar 1 disorder, mixed F3 1.60 [place] [address] [place] [id number] [place] [address] Feb, Bipolar 1 disorder, mixed F3 1.60 and Grief F43.20 [place] [address] [place] [id number] [place] [address] Feb, Gastritis without bleeding, unspecified chronicity, unspecified gastritis type K29.70 [place] [address] [address] Feb, Bipolar 1 disorder, mixed F3 1.60 [facility] [address] [place] [id number] [place] [address] 09 Feb, 2016 Gastroesophageal reflux dise ase, esophagitis presence not specified K21.9 [facility] [address] [place] [id number] [address] [place] [address] Jan, Bipolar 1 disorder, mixed F3 1.60 [facility] [address] [place] [id number] [address] [place] [address] Jan, Bipolar 1 disorder, mixed F3 1.60 and Unsteady gait R26.81 [place] [address] [place] [id number] [place] [address] Jan, Bipolar 1 disorder, mixed F3 1.60 [facility] [address] [place] [id number] [address] [place] [address] Jan, Bipolar 1 disorder, mixed F3 1.60 and Other fci (current) drug therapy Z79.899 [facility] [address] [facility] [id number] [address] [place] [address] Jan, Bipolar 1 disorder, mixed F3 1.60 [facility] [address] 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 [id number] [address] [place] [address] Jan, Bipolar 1 disorder, mixed F3 1.60 [place] [address] [place] [id number] [address] [place] [address] Dec, [place] [address] [place] [id number] [place] [address] Dec, Bipolar 1 disorder, mixed F3 1.60 ; Vitamin D deficiency, unspecified E55.9 ; H/O allergic rhinitis Z87.09 ; Other chronic pain G89.29 and Dorsalgia, unspecified M54.9 [place] [address] [place] [id number] [address] [place] [address] Dec, [place] [address] [place] [id number] [address] [place] [address] Dec, Bipolar 1 disorder, mixed F3 1.60 [facility] [address] [place] [id number] [address] [place] [address] Dec, Major depressive disorder, r ecurrent episode, moderate F33.1 [place] [address] [place] [id number] [address] [place] [address] Dec, Major depressive disorder, r ecurrent episode, moderate F33.1 [place] [address] [place] [id number] [address] [place] [address] Nov, [place] [address] [facility] [id number] [address] [place] [address] Nov, Bipolar 1 disorder, mixed F3 1.60 [place] [address] [facility] [id number] [address] [place] [address] Nov, Major depressive disorder, r ecurrent episode, moderate F33.1 [place] [address] [facility] [id number] [address] [place] [address] Nov, Cervicalgia M54.2 ; Arthralg ia of hip, unspecified laterality M25.559 ; Allergic rhinitis J30.9 and Hormone replacement therapy Z79.890 [facility] [address] [facility] [id number] [address] [place] [address] Nov, Other seasonal allergic rhin itis J30.2 [place] [address] [facility] [id number] [address] [place] [address] October, Major depressive disorder, r ecurrent episode, moderate F33.1 [place] [address] [facility] [id number] [address] [place] [address] October, Major depressive disorder, r ecurrent episode, moderate F33.1 and Arthralgia of hip, unspecified laterality M25.559 [place] [address] [facility] [id number] [address] [place] [address] October, Grief F43.20 ; Hypertension I10 ; Hyperlipidemia, unspecified hyperlipidemia type E78.5 ; Other chronic pain G89.29 and Allergic rhinitis, unspecified allergic rhinitis type J30.9 [place] [address] [facility] [id number] [address] [place] [address] October, Major depressive disorder, r ecurrent episode, moderate F33.1 [place] [address] [facility] [id number] [address] [place] [address] Sep, Major depressive disorder, r ecurrent episode, moderate F33.1 [place] [address] [place] [id number] [address] [place] [address] Sep, [facility] [id number] [place] [address] Sep, Major depressive disorder, r ecurrent episode, moderate F33.1 [place] [id number] [place] [address] Sep, Grief F43.20 [place] [address] [address] Aug, Major depressive disorder, r ecurrent episode, moderate F33.1 [place] [address] [address] Aug, Bipolar 1 disorder, mixed F3 1.60 [place] [address] [address] Aug, Allergic rhinitis J30.9 ; Ce rvicalgia M54.2 and Low back pain M54.5 [place] [address] [address] Aug, Major depressive disorder, r ecurrent episode, moderate F33.1 [facility] [address] [address] Aug, Sinusitis J32.9 and Tobacco 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 [place] [address] [address] Aug, [facility] [address] [address] Aug, Depressive disorder, not els ewhere classified F32.9 ; Hormone replacement therapy Z79.[address] scan, head R93.0 [place] [address] [address] Aug, Major depressive disorder, r ecurrent episode, moderate F33.1 [facility] [address] [place] [address] Jul, Major depressive disorder, r ecurrent episode, moderate F33.1 [facility] [address] [id number] [address] [place] [address] Jul, Abdominal pain R10.9 and Hyp ertension I10 [facility] [address] [id number] [address] [place] [address] Jul, [facility] [address] [id number] [address] [place] [address] Jul, Major depressive disorder, r ecurrent episode, moderate F33.1 [facility] [address] [id number] [address] [place] [address] Jul, [facility] [address] [id number] [address] [place] [address] Jul, [facility] [address] [facility] [id number] [address] [place] [address] Jun, [facility] [address] [id number] [address] [place] [phone] Jun, Depressive disorder, not els ewhere classified F32.9 [facility] [address] [facility] [id number] [address] [place] [phone] Jun, [facility] [address] [id number] [address] [place] [phone] Jun, [facility] [address] [facility] [id number] [address] [place] [phone] Jun, Arthralgia of hip, unspecifi ed laterality M25.559 ; Bruising, spontaneous R23.3 and Night sweats R61 [facility] [address] [id number] [address] [place] [phone] Jun, [facility] [address] [facility] [id number] [address] [place] [id number] Jun, [facility] [address] [facility] [id number] [address] [place] [phone] May, [facility] [address] [id number] [address] [place] [id number] May, Myalgia M79.1 and Screening, lipid Z13.220 [facility] [address] [facility] [id number] [address] [place] [address] Apr, Status post cervical spinal fusion Z98.1 ; Fibromyalgia M79.7 and Unsteady gait R26.81 [facility] [address] [id number] [address] [place] [id number] Nov, [facility] [address] [id number] [address] [place] [phone] Nov, [facility] [address] [id number] [address] [place] [phone] October, [facility] [address] [facility] [id number] [address] [place] [phone] October, [facility] [address] [facility] [id number] [address] [place] [phone] October, [facility] [address] [facility] [id number] [address] [place] [phone] October, [facility] [address] [facility] [id number] [address] [place] [phone] October, [facility] [address] [facility] [id number] [address] [place] [phone] October, Dysuria 788.1 ; Nausea 787.0 2 and Urinary tract infection 599.0 [facility] [address] [id number] [address] [place] [phone] Sep, [facility] [address] [facility] [id number] [address] [place] [phone] Sep, [facility] [address] [facility] [id number] [address] [place] [phone] Aug, [facility] [address] [facility] [id number] [address] [place] [phone] 25 Aug, 2014 [facility] [address] [id number] [facility] [place] [id number] 24 Aug, 2014 [facility] [address] [id number] [facility] [place] [address] 24 Aug, 2014 [facility] [address] [id number] [address] [place] [address], [place] [id number] 23 Aug, 2014 [facility] [address] [id number] [address] [place] [address], [place] [id number] 19 Aug, 2014 [facility] [address] [id number] [address] [place] [address], [place] [address] 19 Aug, 2014 [facility] [address] [id number] [address] [place] [address], [place] [address] 19 Aug, 2014 [facility] [address] [id number] [address] [place] [address], [place] [id number] 19 Aug, 2014 [facility] [address] [id number] [address] [place] [address], [place] [address] 18 Aug, 2014 [facility] [address] [id number] [address] [place] [address], [place] [id number] 18 Aug, 2014 [facility] [address] [id number] [address] [place] [address], [place] [address] 13 Aug, 2014 [facility] [address] [id number] [address] [place] [address], [place] [address] 13 Aug, 2014 [facility] [address] [id number] [address] [place] [address], [place] [address] 11 Aug, 2014 [facility] [address] [id number] [address] [place] [address], [place] [address] 11 Aug, 2014 [facility] [facility] [address] [id number] [address] [place] [address], [place] [address] 06 Aug, 2014 [facility] [address] [id number] [address] [place] [address], [place] [address] 06 Aug, 2014 [facility] [address] [id number] [address] [place] [address], [place] [address] 05 Aug, 2014 [facility] [address] [id number] [address] [place] [address], [place] [address] 05 Aug, 2014 [facility] [address] [id number] [address] [place] [address], [place] [address] 04 Aug, 2014 [facility] [address] [id number] [address] [place] [address], [place] [address] Aug, 2014 [facility] [address] [id number] [address] [place] [address], [place] [address] Aug, [facility] [address] [id number] [address] [place] [address], [place] [address] Jul, 2014 [facility] [address] [id number] [address] [place] [address], [place] [address] Jul, 2014 [facility] [address] [id number] [address] [place] [address], [place] [address] Jul, 2014 [facility] [address] [id number] [address] [place] [address], [place] [address] Jul, [facility] [address] [id number] [address] [place] [address], [place] [address] Jul, [facility] [address] [id number] [address] [place] [address], [place] [address] Jul, [facility] [address] [id number] [address] [place] [address], [place] [address] Jul, 2014 [facility] [address] [id number] [address] [place] [address], [place] [address] Jul, 2014 [facility] [address] [id number] [address] [place] [address], [place] [address] Jul, 2014 [facility] [address] [id number] [address] [place] [address] Jul, 2014 [facility] [address] [id number] [address] [place] [address] Jul, 2014 [facility] [address] [id number] [address] [place] [address], [place] [address] Jul, [facility] [address] [id number] [address] [place] [address], [place] [address] Jul, [facility] [address] [id number] [address] [place] [address], [place] [address] Jul, [facility] [address] [id number] [address] [place] [address] Jun, [facility] [address] [id number] [address] [place] [address], [place] [address] Jun, [facility] [address] [id number] [address] [place] [address], [place] [address] Jun, [facility] [address] [id number] [address] [place] [address], [place] [address] Jun, [facility] [address] [id number] [address] [place] [address], [place] [address] Jun, [facility] [address] [id number] [address] [place] [address], [place] [address] Jun, [facility] [address] [id number] [address] [place] [address], [place] [address] May, [facility] [address] [id number] [address] [place] [address], [place] [address] May, [facility] [address] [id number] [address] [place] [address], [place] [address] May, [facility] [address] [id number] [address] [place] [address], [place] [address] May, [facility] [address] [id number] [address] [place] [address], [place] [address] May, [facility] [address] [id number] [address] [place] [address], [place] [address] May, [facility] [address] [id number] [address] [place] [address], [place] [address] Apr, [facility] [address] [id number] [address] [place] [address], [place] [address] Apr, [facility] [address] [id number] [address] [place] [address], [place] [address] Apr, [facility] [address] [id number] [address] [place] [address], [place] [address] Apr, [facility] [address] [id number] [address] [place] [address], [place] [address] Apr, [facility] [address] [id number] [address] [place] [address], [place] [address] Apr, [facility] [address] [id number] [address] [place] [address], [place] [address] Mar, [facility] [address] [id number] [address] [place] [address], [place] [address] Mar, [facility] [address] [id number] [address] [place] [address], [place] [address] Mar, [facility] [address] [id number] [address] [place] [address], [place] [address] Mar, [facility] [address] [id number] [address] [place] [address], [place] [address] Mar, [facility] [address] [id number] [address] [place] [address], [place] [address] Mar, [facility] [address] [id number] [address] [place] [address] Mar, [facility] [address] [id number] [address] [place] [address], [place] [address] Mar, [facility] [address] [id number] [address] [place] [address], [place] [address] Mar, [facility] [address] [id number] [address] [place] [address], [place] [address] Mar, [facility] [address] [id number] [address] [place] [address], [place] [address] Mar, [facility] [address] [id number] [address] [place] [address], [place] [address] Mar, [facility] [address] [id number] [address] [place] [address], [place] [address] 30 Feb, 2014 [facility] [address] [id number] [address] [place] [address], [place] [address] Feb, [facility] [address] [id number] [address] [place] [address], [place] [address] Feb, [facility] [address] [id number] [address] [place] [address], [place] [address] Feb, [facility] [address] [id number] [address] [place] [address], [place] [address] Feb, [facility] [address] [id number] [address] [place] [address], [place] [address] Feb, [facility] [address] [id number] [address] [place] [address], [place] [address] Feb, [facility] [address] [id number] [address] [place] [address], [place] [address] Jan, [facility] [address] [id number] [address] [place] [address], [place] [address] Jan, [facility] [address] [id number] [address] [place] [address], [place] [address] Jan, [facility] [address] [id number] [address] [place] [address], [place] [address] Dec, [facility] [address] [id number] [address] [place] [address], [place] [address] Dec, [facility] [address] [id number] [address] [place] [address], [place] [address] Dec, [facility] [address] [id number] [address] [place] [address], [place] [address] Dec, [facility] [address] [id number] [address] [place] [address], [place] [address] Sep, [facility] [address] [id number] [address] [place] [address], [place] [address] Sep, [facility] [address] [id number] [address] [place] [address], [place] [address] Sep, [facility] [address] [id number] [address] [place] [address], [place] [address] Sep, [facility] [address] [id number] [address] [place] [address], [place] [address] Sep, [facility] [address] [id number] [address] [place] [address], [place] [address] Sep, [facility] [address] [id number] [address] [place] [address], [place] [address] Sep, [facility] [address] [id number] [address] [place] [address], [place] [address] Sep, [facility] [address] [id number] [address] [place] [address], [place] [address] Aug, [facility] [address] [id number] [address] [place] [address], [place] [address] Aug, [facility] [address] [id number] [address] [place] [address], [place] [address] May, [facility] [address] [id number] [address] [place] [address], [place] [address] May, [facility] [address] [id number] [address] [place] [address], [place] [address] Apr, [facility] [address] [id number] [address] [place] [address], [place] [address] Apr, [facility] [address] [id number] [address] [place] [address], [place] [address] Apr, [facility] [address] [id number] [address] [place] [address], [place] [address] Apr, [facility] [address] [id number] [address] [place] [address], [place] [address] Apr, [facility] [address] [id number] [address] [place] [address], [place] [address] Apr, [facility] [address] [id number] [address] [place] [address], [place] [address] 18 May, 2012 [facility] [address] [id number] [address] [place] [address], [place] [address] 18 May, 2012 [facility] [address] [id number] [address] [place] [address], [place] [address] 15 May, 2012 [facility] [address] [id number] [address] [place] [address], [place] [address] 15 May, 2012 [facility] [address] [id number] [address] [place] [address], [place] [address] 13 May, 2012 [facility] [address] [id number] [address] [place] [address], [place] [address] 13 May, 2012 [facility] [address] [id number] [address] [place] [address], [place] [address] 13 Apr, 2012 [facility] [address] [id number] [address] [place] [address], [place] [address] 13 Apr, 2012 [facility] [address] [id number] [address] [place] [address], [place] [address] Apr, [facility] [address] [id number] [address] [place] [address], [place] [address] Apr, [facility] [address] [id number] [address] [place] [address], [place] [address] Apr, [facility] [address] [id number] [address] [place] [address], [place] [address] 08 Apr, 2012 [facility] [address] [id number] [address] [place] [address], [place] [address] Apr, [facility] [address] [id number] [address] [place] [address], [place] [address] Apr, [facility] [address] [id number] [address] [place] [address], [place] [address] Apr, [facility] [address] [id number] [address] [place] [address], [place] [address] Apr, [facility] [address] [id number] [address] [place] [address], [place] [address] Mar, [facility] [address] [id number] [address] [place] [address], [place] [address] Mar, [facility] [address] [id number] [address] [place] [address] Mar, [facility] [address] [id number] [address] [place] [address], [place] [address] Mar, [facility] [address] [id number] [address] [place] [address] Mar, [facility] [address] [id number] [address] [place] [address], [place] [address] Mar, [facility] [address] [id number] [address] [place] [address] Mar, [facility] [address] [id number] [address] [place] [address] Mar, [facility] [address] [id number] [address] [place] [address] Mar, [facility] [address] [id number] [address] [place] [address], [place] [address] 25 Feb, 2012 [facility] [address] [id number] [address] [place] [address] 16 Sep2011 [facility] [address] [id number] [address] [place] [address] 11 Feb, 2012 [facility] [address] [id number] [address] [place] [address], [place] [address] Jan, [facility] [address] [id number] [address] [place] [address], [place] [address] Jan, [facility] [address] [id number] [address] [place] [address], [place] [address] Jan, [facility] [address] [id number] [address] [place] [address], [place] [address] Jan, [facility] [address] [id number] [address] [place] [address], [place] [address] Jan, [facility] [address] [id number] [address] [place] [address], [place] [address] Jan, [facility] [address] [id number] [address] [place] [address], [place] [address] 16 Jan, 2012 [facility] [address] [id number] [address] [place] [address], [place] [address] Jan, [facility] [address] [id number] [address] [place] [address], [place] [address] Jan, [facility] [address] [id number] [address] [place] [address], [place] [address] Jan, [facility] [address] [id number] [address] [place] [address], [place] [address] Dec, [facility] [address] [id number] [address] [place] [address], [place] [address] Dec, [facility] [address] [id number] [address] [place] [address], [place] [address] Dec, [facility] [address] [id number] [address] [place] [address], [place] [address] Dec, [facility] [address] [id number] [address] [place] [address], [place] [address] Nov, [facility] [address] [id number] [address] [place] [address], [place] [address] 08 Nov, 2011 [facility] [address] [id number] [address] [place] [address] Nov, [facility] [address] [id number] [address] [place] [address] October, [facility] [address] [id number] [address] [place] [address] October, [facility] [address] [id number] [address] [place] [address] October, [facility] [address] [id number] [address] [place] [address] October, [facility] [address] [id number] [address] [place] [address] October, [facility] [address] [id number] [address] [place] [address] October, [facility] [address] [id number] [address] [place] [address] Aug, [facility] [address] [id number] [address] [place] [address] Mar, [facility] [address] [id number] [address] [place] [address] Nov, [facility] [address] [id number] [address] [place] [address] May, [facility] [address] [id number] [address] [place] [address] May, [facility] [address] [id number] [address] [place] [id number] Apr, [facility] [address] [id number] [address] [place] [address] Mar, [facility] [address] [id number] [address] [place] [address] Mar, IMMUNIZATIONS No Known Immunizations SOCIAL HISTORY [...]
--- OUTSIDE RECORDS SUMMARY | 2019-06-19 05:18 | XMS REPORT ---
Author Author Sydnie Huston Doctor Organization [facility] Address Unknown Phone Unavailable Care Team Providers Care Contracts Analyst Name Role Phone Migration, Doctor Unavailable Unavailable PROBLEMS Type Condition ICD9-CM Code OON64-TN Code Onset Dates Condition S tatus SNOMED Code Problem Age-related osteoporosis without current pathological fracture M81.0 Active 04619334 Problem Sensorineural hearing loss (SNHL) of both ears H90 .3 Active 039463407 Problem Abnormal CT scan, head R93.0 Active 440436383 Problem Arthralgia of hip, unspecified laterality M25.559 Active 98356025 Problem Bruising, spontaneous R23.3 Active 131033023 Problem Hypertension I10 Active 8623987 3 Problem Night sweats R61 Active 3007534 0 Problem Imbalance R26.89 Active 141063608 Problem Hammer toe of right foot M20.41 Activ e 019043358 Problem Hormone replacement therapy Z79.890 Ac tive 973375954 Problem Bipolar 1 disorder, mixed F31.60 Acti ve 10047580 Problem Gastritis without bleeding, unspecified chronicity, unspecified gastritis type K29.70 Active 977143053 Problem Ataxia R27.0 Active 53833993 Problem Hearing loss, unspecified laterality H91.90 Active 25232731 Problem History of colon polyps Z86.010 Active 086631126 Problem Allergic rhinitis J30.9 Active 61 889881 Problem Hematuria, unspecified type R31.9 Ac tive 82588773 Problem Generalized anxiety disorder F41.1 A ctive 12123626 Problem Major depressive disorder, recurrent episode, moderate F33.1 Active 852425717 Problem Fibromyalgia M79.7 Active 3084375 7 Problem Bladder spasm N32.89 Active 108466 006 Problem Tobacco use disorder F17.200 Active 304857259 Problem Other chronic pain G89.29 Active 8 0401500 Problem Post menopausal syndrome N95.1 Activ e 678814305 Problem Grief F43.20 Active 75853394 Problem Hyperlipidemia, unspecified hyperlipidemia type E7 8.5 Active 33256250 Problem Acute left-sided low back pain with left-sided sciatica M54.42 Active 829991596 Problem Sciatica of left side M54.32 Active 40274705 Problem Plantar wart of right foot B07.0 Act mitchell 32117071006101659 Problem Slow transit constipation K59.01 Acti ve 47706076 ALLERGIES Substance Reaction Event Type Date Status Lyrica 75 Mg Capsule Unknown Non Drug Allergy Sep, Act mitchell ENCOUNTERS Encounter Location Date Diagnosis [facility] [address] [place] [address] Jan, [facility] [address] [place] [id number] [place] [address] Dec, [facility] [address] [address] Dec, [facility] [address] [address] Dec, [facility] [address] [place] [id number] [address] [place] [address] Nov, Bipolar 1 disorder, mixed F3 1.60 [facility] [address] [place] [id number] [address] [place] [address] Nov, Bipolar 1 disorder, mixed F3 1.60 ; Generalized anxiety disorder F41.1 ; Tobacco use disorder F17.200 and Other detention (current) drug therapy Z79.899 [facility] [address] [place] [id number] [place] [address] Nov, [facility] [address] [id number] [place] [address] Nov, Bipolar 1 disorder, mixed F3 1.60 [facility] [id number] [place] [address] October, Bipolar 1 disorder, mixed F3 1.60 [facility] [address] [place] [address] [id number] [place] [address] October, Bipolar 1 disorder, mixed F3 1.60 [facility] [address] [place] [address] October, [place] [address] [address] October, Bipolar 1 disorder, mixed F3 1.60 ; Generalized anxiety disorder F41.1 and Tobacco use disorder F17.200 [place] [address] [place] [address] Sep, [place] [address] [place] [id number] [place] [address] Sep, Encounter for Medicare [facility] wellness exam Z00.00 ; Major depressive disorder, recurrent episode, moderate F33.1 ; Allergic rhinitis J30.9 ; Bipolar 1 disorder, mixed F31.60 ; Fibromyalgia M79.7 ; Hyperlipidemia, unspecified hyperlipidemia type E78.5 ; Hormone replacement therapy Z79.890 ; Encounter for screening for lung cancer Z12.2 and Tobacco use disorder F17.200 [place] [address] [place] [id number] [place] [address] Sep, Bipolar 1 disorder, mixed F3 1.60 [place] [address] [address] Sep, Other chronic pain G89.29 ; Hyperlipidemia, unspecified hyperlipidemia type E78.5 ; Breast cancer screening Z12.31 and Post menopausal syndrome N95.1 [place] [address] [place] [address] Sep, Bipolar 1 disorder, mixed F3 1.60 [place] [address] [place] [id number] [place] [address] Sep, Bipolar 1 disorder, mixed F3 1.60 ; Generalized anxiety disorder F41.1 and Tobacco use disorder F17.200 [place] [address] [place] [id number] [place] [address] Sep, Gastritis without bleeding, unspecified chronicity, unspecified gastritis type K29.70 [place] [address] [place] [address] 08 Sep, 2018 Exercise counseling Z71.82 [place] [address] [place] [id number] [place] [address] Aug, Exercise counseling Z71.82 [facility] [address] [place] [id number] [place] [address] Aug, Bipolar 1 disorder, mixed F3 1.60 [place] [address] [place] [address] Aug, Exercise counseling Z71.82 [place] [address] [place] [id number] [place] [address] Aug, Bipolar 1 disorder, mixed F3 1.60 [place] [address] [place] [id number] [place] [address] Aug, Gastritis without bleeding, unspecified chronicity, unspecified gastritis type K29.70 ; Tobacco abuse Z72.0 ; Generalized anxiety disorder F41.1 and Weight gain R63.5 [place] [address] [place] [id number] [place] [address] Aug, Bipolar 1 disorder, mixed F3 1.60 ; Generalized anxiety disorder F41.1 and Tobacco use disorder F17.200 [place] [address] [place] [id number] [place] [address] Jul, Bipolar 1 disorder, mixed F3 1.60 [place] [address] [place] [id number] [place] [address] Jul, [place] [address] [place] [id number] [place] [address] Jul, Bipolar 1 disorder, mixed F3 1.60 [place] [address] [place] [id number] [place] [address] Jul, Allergic rhinitis J30.9 ; Ma darion depressive disorder, recurrent episode, moderate F33.1 and Tobacco 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 [place] [address] [place] [address] [place] [address] Jun, [facility] [address] [id number] [address] [place] [address] Jun, [facility] [address] [id number] [address] [place] [address] Jun, Bipolar 1 disorder, mixed F3 1.60 [facility] [address] [facility] [id number] [address] [place] [address] Jun, Bipolar 1 disorder, mixed F3 1.60 [facility] [address] [facility] [id number] [address] [place] [address] Jun, Bipolar 1 disorder, mixed F3 1.60 [facility] [address] [facility] [id number] [address] [place] [address] Jun, Generalized anxiety disorder F41.1 ; Tobacco abuse Z72.0 and Major depressive disorder, recurrent episode, moderate F33.1 [facility] [address] [facility] [id number] [address] [place] [address] May, Bipolar 1 disorder, mixed F3 1.60 [facility] [address] [facility] [id number] [address] [place] [address] May, Bipolar 1 disorder, mixed F3 1.60 and Generalized anxiety disorder F41.1 [facility] [address] [facility] [id number] [address] [place] [address] May, Bipolar 1 disorder, mixed F3 1.60 [facility] [address] [facility] [id number] [address] [place] [address] May, Allergic rhinitis J30.9 [facility] [address] [facility] [id number] [address] [place] [address] May, Bipolar 1 disorder, mixed F3 1.60 [facility] [address] [facility] [id number] [address] [place] [address] May, [facility] [address] [facility] [id number] [address] [place] [address] Apr, Allergic rhinitis J30.9 ; Dy sfunction of both eustachian tubes H69.83 ; History of bladder surgery Z98.890 and Cervicalgia M54.2 [facility] [address] [place] [id number] [place] [address] Mar, Bipolar 1 disorder, mixed F3 1.60 [place] [address] [address] Mar, [place] [address] [address] Mar, Slow transit constipation K5 9.01 ; Encounter for immunization Z23 and Generalized anxiety disorder F41.1 [place] [address] [address] 27 Feb, 2018 Bipolar 1 disorder, mixed F3 1.60 [place] [address] [address] Feb, Allergic rhinitis J30.9 [facility] [address] [place] [address] 24 Feb, 2018 Bipolar 1 disorder, mixed F3 1.60 [place] [address] [address] 20 Feb, 2018 Bipolar 1 disorder, mixed F3 1.60 and Generalized anxiety disorder F41.1 [place] [address] [place] [address] 13 Feb, 2018 Bipolar 1 disorder, mixed F3 1.60 [place] [address] [place] [id number] [place] [address] 11 Feb, 2018 Allergic rhinitis J30.9 [facility] [address] [place] [id number] [place] [address] 05 Feb, 2018 [place] [address] [place] [id number] [place] [address] Jan, Bipolar 1 disorder, mixed F3 1.60 [place] [address] [facility] [id number] [address] [place] [address] Jan, Low back pain M54.5 ; Hyperl ipidemia, unspecified hyperlipidemia type E78.5 and Bipolar 1 disorder, mixed F31.60 [facility] [address] [facility] [id number] [address] [place] [address] Jan, Bipolar 1 disorder, mixed F3 1.60 [facility] [address] [facility] [id number] [address] [place] [address] Jan, Bipolar 1 disorder, mixed F3 1.60 [facility] [address] [facility] [id number] [address] [place] [address] Jan, Bipolar 1 disorder, mixed F3 1.60 [facility] [address] [facility] [id number] [address] [place] [address] Jan, Bipolar 1 disorder, mixed F3 1.60 [facility] [address] [place] [id number] [place] [address] Dec, Bipolar 1 disorder, mixed F3 1.60 ; Generalized anxiety disorder F41.1 and Other emergency department aide (current) drug therapy Z79.899 [place] [address] [facility] [id number] [address] [place] [address] Dec, Other detention (current) dr ug therapy Z79.899 [facility] [address] [facility] [id number] [address] [place] [address] Dec, Bipolar 1 disorder, mixed F3 1.60 [facility] [address] [facility] [id number] [address] [place] [address] Dec, Bipolar 1 disorder, mixed F3 1.60 [place] [id number] [facility] [id number] [address] [place] [address] Nov, Bipolar 1 disorder, mixed F3 1.60 [facility] [address] [facility] [id number] [address] [place] [address] Nov, Bipolar 1 disorder, mixed F3 1.60 [facility] [address] [place] [id number] [place] [address] 13 Nov, 2017 Bipolar 1 disorder, mixed F3 1.60 [facility] [address] [place] [address] 11 Nov, 2017 Allergic rhinitis J30.9 [facility] [address] [place] [id number] [place] [address] Nov, Allergic rhinitis J30.9 [facility] [address] [address] Nov, [facility] [address] [place] [id number] [place] [address] Nov, Bipolar 1 disorder, mixed F3 1.60 [place] [address] [address] Nov, Fibromyalgia M79.7 and Aller gic rhinitis J30.9 [facility] [address] [place] [address] October, Bipolar 1 disorder, mixed F3 1.60 [facility] [address] [address] October, Acute nasopharyngitis J00 [facility] [address] [address] October, Bitten or stung by nonvenomo us insect and other nonvenomous arthropods, initial encounter W57.XXXA and Insect bite (nonvenomous) of abdominal wall, initial encounter S30.861A [place] [address] [place] [id number] [place] [address] October, Insect bite (nonvenomous) of abdominal wall, initial encounter S30.861A ; Bitten or stung by nonvenomous insect and other nonvenomous arthropods, initial encounter W57.XXXA ; Allergic rhinitis J30.9 and Low back pain M54.5 [place] [address] [place] [id number] [place] [address] October, Bipolar 1 disorder, mixed F3 1.60 [facility] [address] [facility] [id number] [address] [place] [address] October, [facility] [address] [facility] [id number] [address] [place] [address] October, [facility] [address] [facility] [id number] [address] [place] [address] October, Bipolar 1 disorder, mixed F3 1.60 [facility] [address] [facility] [id number] [address] [place] [address] Sep, Bipolar 1 disorder, mixed F3 1.60 [facility] [address] [facility] [id number] [address] [place] [address] Sep, Other chronic pain G89.29 [facility] [address] [place] [id number] [place] [address] Sep, [facility] [address] [facility] [id number] [address] [place] [address] Sep, Bipolar 1 disorder, mixed F3 1.60 [facility] [address] [facility] [id number] [address] [place] [address] Sep, Allergic rhinitis J30.9 and Sciatica of left side M54.32 [facility] [address] [place] [id number] [place] [address] Sep, Bipolar 1 disorder, mixed F3 1.60 [facility] [address] [facility] [id number] [address] [place] [address] Sep, Bipolar 1 disorder, mixed F3 1.60 and Generalized anxiety disorder F41.1 [facility] [address] [facility] [id number] [address] [place] [address] Aug, [facility] [address] [facility] [id number] [address] [place] [address] Aug, Bipolar 1 disorder, mixed F3 1.60 [facility] [address] [id number] [address] [place] [address] Aug, Bipolar 1 disorder, mixed F3 1.60 [facility] [address] [id number] [address] [place] [address] Aug, [facility] [address] [facility] [id number] [address] [place] [address] Aug, Generalized anxiety disorder F41.1 [facility] [address] [facility] [id number] [address] [place] [address] Aug, Bipolar 1 disorder, mixed F3 1.60 [facility] [address] [facility] [id number] [address] [place] [address] Aug, Plantar wart of right foot B 07.0 [facility] [address] [facility] [id number] [address] [place] [address] Aug, Bipolar 1 disorder, mixed F3 1.60 [facility] [address] [facility] [id number] [address] [place] [address] Jul, Bipolar 1 disorder, mixed F3 1.60 [facility] [address] [facility] [id number] [address] [place] [address] Jul, [facility] [address] [facility] [id number] [address] [place] [address] Jul, Bipolar 1 disorder, mixed F3 1.60 [facility] [address] [facility] [id number] [address] [place] [address] Jul, Generalized anxiety disorder F41.1 [facility] [address] [facility] [id number] [address] [place] [address] Jul, Bipolar 1 disorder, mixed F3 1.60 [facility] [address] [facility] [id number] [address] [place] [address] Jul, Acute left-sided low back pa in with left-sided sciatica M54.42 [facility] [address] [facility] [id number] [address] [place] [address] Jul, Coccydynia M53.3 [place] [address] [place] [address] Jun, Bipolar 1 disorder, mixed F3 1.60 [facility] [address] [place] [id number] [place] [address] Jun, Acute nasopharyngitis J00 [place] [address] [address] Jun, Bipolar 1 disorder, mixed F3 1.60 [place] [address] [address] Jun, Fibromyalgia M79.7 [place] [address] [address] Jun, Bipolar 1 disorder, mixed F3 1.60 [place] [address] [address] Jun, Fibromyalgia M79.7 and Bipol ar 1 disorder, mixed F31.60 [place] [address] [address] May, Bipolar 1 disorder, mixed F3 1.60 ; Generalized anxiety disorder F41.1 and Other detention (current) drug therapy Z79.899 [place] [address] [address] May, Bipolar 1 disorder, mixed F3 1.60 [facility] [address] [place] [address] May, Cough R05 and Body aches R52 [facility] [place] [address] [address] May, Bladder spasm N32.89 and Acu te cystitis without hematuria N30.00 [place] [address] [address] May, Bipolar 1 disorder, mixed F3 1.60 [facility] [address] [address] 30 Apr, 2017 [facility] [address] [place] [address] Apr, Major depressive disorder, r ecurrent episode, moderate F33.1 and Encounter for immunization Z23 [facility] [address] [place] [address] Apr, Bipolar 1 disorder, mixed F3 1.60 [facility] [address] Apr, Bipolar 1 disorder, mixed F3 1.60 [place] [address] 16 Apr, 2017 Bipolar 1 disorder, mixed F3 1.60 [facility] [address] [place] [address] Apr, Yeast vaginitis B37.3 [facility] [address] [address] Apr, Bipolar 1 disorder, mixed F3 1.60 [facility] [address] [address] 07 Apr, [address]itis [address] for immunization Z23 [facility] [address] [address] Apr, Bipolar 1 disorder, mixed F3 1.60 [facility] [address] [address] Mar, Bipolar 1 disorder, mixed F3 1.60 [place] [address] [place] [id number] Mar, Bipolar 1 disorder, mixed F3 1.60 [facility] [address] [address] Mar, Imbalance R26.89 [address] En[address] er for immunization Z23 [place] [address] [address] Mar, Generalized anxiety disorder F41.1 [place] [address] [place] [id number] [place], [place] [id number] Mar, Bipolar 1 disorder, mixed F3 1.60 [place] [address] [place] [address] Mar, Generalized anxiety disorder F41.1 [place] [address] [address] Mar, Bipolar 1 disorder, mixed F3 1.60 [place] [address] [place] [address] Mar, Bipolar 1 disorder, mixed F3 1.60 [place] [address] [address] Feb, Bipolar 1 disorder, mixed F3 1.60 [place] [address] [address] 25 Feb, 2017 Bipolar 1 disorder, mixed F3 1.60 and Generalized anxiety disorder F41.1 [place] [address] [address] Feb, Gastritis without bleeding, unspecified chronicity, unspecified gastritis type K29.70 ; Hammer toe of right foot M20.41 and Other viral warts B07.8 [place] [address] [place] [id number] [place] [id number] 20 Feb, 2017 Bipolar 1 disorder, mixed F3 1.60 [place] [address] [address] 13 Feb, 2017 Bipolar 1 disorder, mixed F3 1.60 [place] [address] [address] 05 Feb, 2017 Bipolar 1 disorder, mixed F3 1.60 [place] [address] [facility] [id number] [address] [place] [id number] 31 Jan, 2017 Encounter for screening mamm ogram for breast cancer Z12.31 ; Other viral warts B07.8 and Allergic rhinitis J30.9 [facility] [address] [facility] [id number] [address] [place] [id number] Jan, Bipolar 1 disorder, mixed F3 1.60 [facility] [address] [facility] [id number] [address] [place] [id number] Jan, Bipolar 1 disorder, mixed F3 1.60 [place] [address] [facility] [id number] [address] [place] [address] Jan, [place] [address] [facility] [id number] [address] [place] [address] Jan, Bipolar 1 disorder, mixed F3 1.60 [place] [address] [place] [id number] [address] [place] [address] Jan, Bipolar 1 disorder, mixed F3 1.60 [place] [address] [facility] [id number] [address] [place] [address] Jan, Allergic rhinitis J30.9 ; He maturia R31.9 and Colon cancer screening Z12.11 [place] [address] [place] [id number] [address] [place] [address] Dec, Bipolar 1 disorder, mixed F3 1.60 [place] [address] [facility] [id number] [address] [place] [address] Dec, Bipolar 1 disorder, mixed F3 1.60 ; Generalized anxiety disorder F41.1 and Other emergency department aide (current) drug therapy Z79.899 [place] [address] [place] [id number] [address] [place] [address] Dec, Bipolar 1 disorder, mixed F3 1.60 [place] [address] [place] [id number] [address] [place] [id number] Dec, Bipolar 1 disorder, mixed F3 1.60 [place] [address] [place] [id number] [address] [place] [address] Dec, Bipolar 1 disorder, mixed F3 1.60 [facility] [address] [facility] [id number] [address] [place] [address] Dec, Low back pain M54.5 and Recu rrent urinary tract infection N39.0 [facility] [address] [facility] [id number] [address] [place] [id number] Nov, Bipolar 1 disorder, mixed F3 1.60 [facility] [address] [facility] [id number] [address] [place] [id number] Nov, Bipolar 1 disorder, mixed F3 1.60 [place] [address] [facility] [id number] [address] [place] [address] Nov, Bipolar 1 disorder, mixed F3 1.60 [place] [address] [place] [id number] [address] [place] [address] Nov, Bipolar 1 disorder, mixed F3 1.60 [facility] [address] [facility] [id number] [address] [place] [id number] Nov, [facility] [address] [facility] [id number] [address] [place] [address] Nov, Anesthesia of skin R20.0 ; F requent UTI N39.0 ; Tobacco abuse Z72.0 and Colon cancer screening Z12.11 [facility] [address] [facility] [id number] [address] [place] [id number] Nov, Bipolar 1 disorder, mixed F3 1.60 [facility] [address] [facility] [id number] [address] [place] [id number] October, Bipolar 1 disorder, mixed F3 1.60 [facility] [address] [facility] [id number] [address] [place] [address] October, Bipolar 1 disorder, mixed F3 1.60 [facility] [address] [facility] [id number] [address] [place] [id number] October, Bipolar 1 disorder, mixed F3 1.60 [facility] [address] [place] [id number] [address] [place] [id number] October, Bipolar 1 disorder, mixed F3 1.60 [place] [address] [place] [id number] [address] [place] [address] October, Bipolar 1 disorder, mixed F3 1.60 [place] [address] [address] October, Cervicalgia M54.2 and Bipola r 1 disorder, mixed F31.60 [place] [address] [place] [id number] [address] [place] [address] October, Hypertension I10 ; Hyperlipi demia, unspecified hyperlipidemia type E78.5 and Family history of thyroid disease Z83.49 [place] [address] [address] October, [place] [address] [address] October, Hypertension I10 ; Hyperlipi demia, unspecified hyperlipidemia type E78.5 and Family history of thyroid problem Z83.49 [place] [address] [address] October, Bipolar 1 disorder, mixed F3 1.60 [place] [address] [address] Sep, Bipolar 1 disorder, mixed F3 1.60 [place] [address] [place] [id number] [address] [place] [address] Sep, Bipolar 1 disorder, mixed F3 1.60 [place] [address] [place] [id number] [place] [phone] Sep, Bipolar 1 disorder, mixed F3 1.60 [place] [address] [place] [id number] [address] [place] [id number] Sep, History of colon polyps Z86. 010 and Hematochezia K92.1 [facility] [address] [facility] [id number] [address] [place] [id number] Sep, Major depressive disorder, r ecurrent episode, moderate F33.1 [facility] [address] [facility] [id number] [address] [place] [address] Sep, Bipolar 1 disorder, mixed F3 1.60 [facility] [address] [place] [id number] [address] [place] [address] Aug, Hot flashes due to menopause N95.1 [facility] [address] [place] [id number] [address] [place] [id number] Aug, Bipolar 1 disorder, mixed F3 1.60 [facility] [address] [place] [id number] [address] [place] [id number] Aug, [facility] [address] [place] [id number] [place] [phone] Aug, Bipolar 1 disorder, mixed F3 1.60 [facility] [address] [place] [id number] [address] [place] [address] Aug, Bipolar 1 disorder, mixed F3 1.60 [facility] [address] [place] [id number] [place] [address] Aug, Hot flashes due to menopause N95.1 ; Cervicalgia M54.2 and Ataxia R27.0 [facility] [address] [place] [id number] [address] [place] [address] Jul, Bipolar 1 disorder, mixed F3 1.60 [facility] [address] [place] [id number] [address] [place] [id number] Jul, Bipolar 1 disorder, mixed F3 1.60 [facility] [address] [place] [id number] [address] [place] [id number] Jul, Bipolar 1 disorder, mixed F3 1.60 [facility] [address] [place] [id number] [address] [place] [address] Jul, Bipolar 1 disorder, mixed F3 1.60 [facility] [address] [address] 10 Jul, 2016 Bipolar 1 disorder, mixed F3 1.60 [facility] [address] [address] 08 Jul, 2016 Cervicalgia M54.2 ; Tremor R 25.1 ; Hearing abnormally acute, unspecified laterality H93.239 ; Alopecia L65.9 ; Encounter for immunization Z23 and Family history of thyroid disease Z83.49 [place] [address] [address] 06 Jul, 2016 Bipolar 1 disorder, mixed F3 1.60 [place] [address] [address] Jun, [place] [address] [address] Jun, Hearing disorder, unspecifie d laterality H93.299 [place] [address] [address] Jun, Bipolar 1 disorder, mixed F3 1.60 [place] [address] [address] Jun, Bipolar 1 disorder, mixed F3 1.60 [place] [address] [address] Jun, Allergic rhinitis J30.9 [facility] [address] [address] Jun, Bipolar 1 disorder, mixed F3 1.60 [place] [address] [address] Jun, Bipolar 1 disorder, mixed F3 1.60 [facility] [address] [address] Jun, Allergic rhinitis J30.9 [facility] [address] [place] [id number] [place] [address] Jun, Allergic rhinitis J30.9 [facility] [address] [facility] [id number] [address] [place] [id number] Jun, Bipolar 1 disorder, mixed F3 1.60 [facility] [address] [place] [id number] [address] [place] [address] May, Bipolar 1 disorder, mixed F3 1.60 [facility] [address] [facility] [id number] [address] [place] [address] May, Bipolar 1 disorder, mixed F3 1.60 [facility] [address] [place] [id number] [address] [place] [address] May, [facility] [address] [place] [id number] [address] [place] [address] May, Bipolar 1 disorder, mixed F3 1.60 [facility] [address] [place] [id number] [address] [place] [address] May, Bipolar 1 disorder, mixed F3 1.60 [facility] [address] [place] [id number] [address] [place] [address] May, [facility] [address] [place] [id number] [address] [place] [address] May, [facility] [address] [place] [id number] [address] [place] [address] May, [facility] [address] [place] [id number] [address] [place] [address] May, Abdominal pain, unspecified location R10.9 [facility] [address] [place] [id number] [address] [place] [address] May, [facility] [address] [place] [id number] [address] [place], [place] [id number] Apr, Hematuria R31.9 ; Ataxia R27 .0 and Hearing loss, unspecified laterality H91.90 [facility] [address] [address] Apr, Bipolar 1 disorder, mixed F3 1.60 [facility] [address] [address] Apr, Acute effusion of both middl e ears H65.193 [facility] [address] [address] 10 Apr, 2016 Hematuria R31.9 and Pyelonep hritis N12 [facility] [address] [address] Apr, [place] [address] [address] Mar, Bipolar 1 disorder, mixed F3 1.60 [facility] [address] [address] Mar, [facility] [address] [address] Mar, Bipolar 1 disorder, mixed F3 1.60 [place] [address] [address] Mar, Bipolar 1 disorder, mixed F3 1.60 [facility] [address] [address] Mar, Encounter for immunization Z 23 and Gastritis without bleeding, unspecified chronicity, unspecified gastritis type K29.70 [facility] [address] [address] 05 Mar, 2016 Bipolar 1 disorder, mixed F3 1.60 and Grief F43.20 [place] [address] [address] Mar, Gastritis without bleeding, unspecified chronicity, unspecified gastritis type K29.70 [facility] [address] [address] Mar, Bipolar 1 disorder, mixed F3 1.60 [place] [address] [facility] [id number] [address] [place] [address] 05 Mar, 2016 Gastritis without bleeding, unspecified chronicity, unspecified gastritis type K29.70 [facility] [address] [facility] [id number] [address] [place], [place] [address] Mar, [place] [address] [place] [id number] [address] [place] [address] Feb, Bipolar 1 disorder, mixed F3 1.60 [place] [address] [place] [id number] [address] [place] [address] Feb, Bipolar 1 disorder, mixed F3 1.60 and Grief F43.20 [place] [address] [place] [id number] [address] [place] [address] Feb, Gastritis without bleeding, unspecified chronicity, unspecified gastritis type K29.70 [place] [address] [place] [id number] [address] [place] [address] 14 Feb, 2016 Bipolar 1 disorder, mixed F3 1.60 [facility] [address] [facility] [id number] [address] [place] [id number] 09 Feb, 2016 Gastroesophageal reflux dise ase, esophagitis presence not specified K21.9 [facility] [address] [facility] [id number] [address] [place] [address] Jan, Bipolar 1 disorder, mixed F3 1.60 [place] [id number] [place] [address] Jan, Bipolar 1 disorder, mixed F3 1.60 and Unsteady gait R26.81 [place] [address] [place] [id number] [address] [place] [address] Jan, Bipolar 1 disorder, mixed F3 1.60 [facility] [address] [place] [id number] [address] [place] [address] 18 Jan, 2016 Bipolar 1 disorder, mixed F3 1.60 and Other emergency department aide (current) drug therapy Z79.899 [place] [address] [facility] [id number] [address] [place] [address] Jan, Bipolar 1 disorder, mixed F3 1.60 [facility] [address] [facility] [id number] [address] [place] [address] Jan, Bipolar 1 disorder, mixed F3 1.60 [facility] [address] [facility] [id number] [address] [place] [address] Jan, Bipolar 1 disorder, mixed F3 1.60 ; Grief F43.20 and Other emergency department aide (current) drug therapy Z79.899 [facility] [address] [facility] [id number] [address] [place] [address] Jan, Bipolar 1 disorder, mixed F3 1.60 [place] [address] [place] [id number] [address] [place] [address] Dec, [place] [address] [place] [id number] [address] [place] [address] Dec, Bipolar 1 disorder, mixed F3 1.60 ; Vitamin D deficiency, unspecified E55.9 ; H/O allergic rhinitis Z87.09 ; Other chronic pain G89.29 and Dorsalgia, unspecified M54.9 [place] [address] [place] [id number] [address] [place] [address] Dec, [place] [address] [place] [id number] [address] [place] [address] Dec, Bipolar 1 disorder, mixed F3 1.60 [facility] [address] [place] [id number] [address] [place] [address] Dec, Major depressive disorder, r ecurrent episode, moderate F33.1 [place] [address] [place] [id number] [address] [place] [address] Dec, Major depressive disorder, r ecurrent episode, moderate F33.1 [place] [address] [place] [id number] [address] [place] [address] Nov, [place] [address] [place] [address] Nov, Bipolar 1 disorder, mixed F3 1.60 [place] [address] [address] Nov, Major depressive disorder, r ecurrent episode, moderate F33.1 [place] [address] [address] Nov, Cervicalgia M54.2 ; Arthralg ia of hip, unspecified laterality M25.559 ; Allergic rhinitis J30.9 and Hormone replacement therapy Z79.890 [facility] IN [facility] [address] [address] Nov, Other seasonal allergic rhin itis J30.2 [place] [address] [address] October, Major depressive disorder, r ecurrent episode, moderate F33.1 [place] [address] [address] October, Major depressive disorder, r ecurrent episode, moderate F33.1 and Arthralgia of hip, unspecified laterality M25.559 [place] [address] [address] October, Grief F43.20 ; Hypertension I10 ; Hyperlipidemia, unspecified hyperlipidemia type E78.5 ; Other chronic pain G89.29 and Allergic rhinitis, unspecified allergic rhinitis type J30.9 [place] [address] [address] October, Major depressive disorder, r ecurrent episode, moderate F33.1 [place] [address] [address] Sep, Major depressive disorder, r ecurrent episode, moderate F33.1 [place] [address] [address] Sep, [place] [address] [place] [address] Sep, Major depressive disorder, r ecurrent episode, moderate F33.1 [place] [address] [place] [id number] [address] [place] [address] Sep, Grief F43.20 [place] [address] [address] Aug, Major depressive disorder, r ecurrent episode, moderate F33.1 [place] [address] [address] Aug, Bipolar 1 disorder, mixed F3 1.60 [place] [address] [address] Aug, Allergic rhinitis J30.9 ; Ce rvicalgia M54.2 and Low back pain M54.5 [place] [address] [address] Aug, Major depressive disorder, r ecurrent episode, moderate F33.1 [facility] [address] [place] [address] Aug, Sinusitis J32.9 and Tobacco 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 [facility] [address] [place] [id number] [address] [place] [address] Aug, [facility] [address] [address] Aug, Depressive disorder, not els ewhere classified F32.9 ; Hormone replacement therapy Z79.[address] scan, head R93.0 [place] [address] [address] Aug, Major depressive disorder, r ecurrent episode, moderate F33.1 [facility] [address] [place] [id number] [address] [place] [address] Jul, Major depressive disorder, r ecurrent episode, moderate F33.1 [facility] [address] [id number] [address] [place] [id number] 17 Jul, 2015 Abdominal pain R10.9 and Hyp ertension I10 [facility] [address] [id number] [address] [place] [address] Jul, [facility] [address] [facility] [id number] [address] [place] [address] Jul, Major depressive disorder, r ecurrent episode, moderate F33.1 [facility] [address] [id number] [address] [place] [address] 04 Jul, 2015 [facility] [address] [facility] [id number] [address] [place] [address] Jul, [facility] [address] [facility] [id number] [address] [place] [address] Jun, [facility] [address] [facility] [id number] [address] [place] [address] Jun, Depressive disorder, not els ewhere classified F32.9 [facility] [address] [id number] [address] [place] [address] Jun, [facility] [address] [facility] [id number] [address] [place] [address] Jun, [facility] [address] [facility] [id number] [address] [place] [address] Jun, Arthralgia of hip, unspecifi ed laterality M25.559 ; Bruising, spontaneous R23.3 and Night sweats R61 [facility] [address] [facility] [id number] [address] [place] [address] Jun, [facility] [address] [facility] [id number] [address] [place] [address] Jun, [facility] [address] [facility] [id number] [address] [place] [address] May, [facility] [address] [facility] [id number] [address] [place] [address] May, Myalgia M79.1 and Screening, lipid Z13.220 [facility] [address] [facility] [id number] [address] [place] [address] Apr, Status post cervical spinal fusion Z98.1 ; Fibromyalgia M79.7 and Unsteady gait R26.81 [facility] [address] [id number] [address] [place] [id number] Nov, [facility] [address] [id number] [address] [place] [id number] Nov, [facility] [address] [facility] [id number] [address] [place] [id number] October, [facility] [address] [facility] [id number] [address] [place] [phone] October, [facility] [address] [facility] [id number] [address] [place] [phone] October, [facility] [address] [facility] [id number] [address] [place] [id number] October, [facility] [address] [facility] [id number] [address] [place] [id number] October, [facility] [address] [facility] [id number] [address] [place] [phone] October, Dysuria 788.1 ; Nausea 787.0 2 and Urinary tract infection 599.0 [facility] [address] [facility] [id number] [address] [place] [phone] Sep, [facility] [address] [facility] [id number] [address] [place] [id number] Sep, [facility] [address] [facility] [id number] [address] [place] [id number] Aug, [facility] [address] [facility] [id number] [address] [place] [phone] Aug, [facility] [address] [id number] [facility] [place] [address] 24 Aug, 2014 [facility] [address] [id number] [facility] [place] [address] 24 Aug, 2014 [facility] [address] [id number] [facility] [place] [address] 23 Aug, 2014 [facility] [address] [id number] [address] [place] [address], [place] [address] 19 Aug, 2014 [facility] [address] [id number] [address] [place] [address], [place] [id number] 19 Aug, 2014 [facility] [address] [id number] [address] [place] [address], [place] [address] 19 Aug, 2014 [facility] [address] [id number] [address] [place] [address], [place] [address] 19 Aug, 2014 [facility] [address] [id number] [address] [place] [address], [place] [address] 18 Aug, 2014 [facility] [address] [id number] [address] [place] [address], [place] [address] 18 Aug, 2014 [facility] [address] [id number] [address] [place] [address], [place] [address] 13 Aug, 2014 [facility] [address] [id number] [address] [place] [address], [place] [address] 13 Aug, 2014 [facility] [address] [id number] [address] [place] [address], [place] [address] 11 Aug, 2014 [facility] [address] [id number] [address] [place] [address], [place] [address] 11 Aug, 2014 [facility] [address] [id number] [address] [place] [address], [place] [address] 06 Aug, 2014 [facility] [address] [id number] [address] [place] [address], [place] [address] 06 Aug, 2014 [facility] [address] [id number] [address] [place] [address], [place] [address] 05 Aug, 2014 [facility] [address] [id number] [address] [place] [address], [place] [address] Aug, [facility] [address] [id number] [address] [place] [address], [place] [address] Aug, [facility] [address] [id number] [address] [place] [address], [place] [address] Aug, [facility] [address] [id number] [address] [place] [address], [place] [address] Aug, [facility] [address] [id number] [address] [place] [address], [place] [address] Jul, 2014 [facility] [address] [id number] [address] [place] [address], [place] [address] Jul, 2014 [facility] [address] [id number] [address] [place] [address], [place] [address] Jul, 2014 [facility] [address] [id number] [address] [place] [address], [place] [address] Jul, 2014 [facility] [address] [id number] [address] [place] [address], [place] [address] Jul, 2014 [facility] [address] [id number] [address] [place] [address], [place] [address] Jul, 2014 [facility] [address] [id number] [address] [place] [address], [place] [address] Jul, 2014 [facility] [address] [id number] [address] [place] [address] Jul, 2014 [facility] [address] [id number] [address] [place] [address], [place] [address] Jul, 2014 [facility] [address] [id number] [address] [place] [address] Jul, 2014 [facility] [address] [id number] [address] [place] [address] Jul, 2014 [facility] [address] [id number] [address] [place] [address], [place] [address] Jul, 2014 [facility] [address] [id number] [address] [place] [address], [place] [address] Jul, [facility] [address] [id number] [address] [place] [address], [place] [address] Jul, [facility] [address] [id number] [address] [place] [address], [place] [address] Jun, [facility] [address] [id number] [address] [place] [address], [place] [address] Jun, [facility] [address] [id number] [address] [place] [address], [place] [address] Jun, [facility] [address] [id number] [address] [place] [address], [place] [address] Jun, [facility] [address] [id number] [address] [place] [address], [place] [address] Jun, [facility] [address] [id number] [address] [place] [address], [place] [address] Jun, [facility] [address] [id number] [address] [place] [address] May, [facility] [address] [id number] [address] [place] [address] May, [facility] [address] [id number] [address] [place] [address] May, [facility] [address] [id number] [address] [place] [address], [place] [address] May, [facility] [address] [id number] [address] [place] [address], [place] [address] May, [facility] [address] [id number] [address] [place] [address], [place] [address] May, [facility] [address] [id number] [address] [place] [address] Apr, [facility] [address] [id number] [address] [place] [address], [place] [address] Apr, [facility] [address] [id number] [address] [place] [address] Apr, [facility] [address] [id number] [address] [place] [address], [place] [address] Apr, [facility] [address] [id number] [address] [place] [address], [place] [address] Apr, [facility] [address] [id number] [address] [place] [address], [place] [address] Apr, [facility] [address] [id number] [address] [place] [address], [place] [address] Mar, [facility] [address] [id number] [address] [place] [address] Mar, [facility] [address] [id number] [address] [place] [address] Mar, [facility] [address] [id number] [address] [place] [address] Mar, [facility] [address] [id number] [address] [place] [address] Mar, [facility] [address] [id number] [address] [place] [address] Mar, [facility] [address] [id number] [address] [place] [address] Mar, [facility] [address] [id number] [address] [place] [address] Mar, [facility] [address] [id number] [address] [place] [address] Mar, [facility] [address] [id number] [address] [place] [address] Mar, [facility] [address] [id number] [facility] [place] [address] Mar, [facility] [address] [id number] [address] [place] [address], [place] [address] Mar, [facility] [address] [id number] [address] [place] [address], [place] [address] 30 Feb, 2014 [facility] [address] [id number] [address] [place] [address], [place] [address] Feb, [facility] [address] [id number] [address] [place] [address], [place] [address] Feb, [facility] [address] [id number] [address] [place] [address], [place] [address] Feb, [facility] [address] [id number] [address] [place] [address], [place] [address] Feb, [facility] [address] [id number] [address] [place] [address], [place] [address] Feb, [facility] [address] [id number] [address] [place] [address], [place] [address] Feb, [facility] [address] [id number] [address] [place] [address], [place] [address] Jan, [facility] [address] [id number] [address] [place] [address], [place] [address] Jan, [facility] [address] [id number] [address] [place] [address], [place] [address] Jan, [facility] [address] [id number] [address] [place] [address], [place] [address] Dec, [facility] [address] [id number] [address] [place] [address], [place] [address] Dec, [facility] [address] [id number] [address] [place] [address], [place] [address] Dec, [facility] [address] [id number] [address] [place] [address], [place] [address] Dec, [facility] [address] [id number] [address] [place] [address], [place] [address] Sep, [facility] [address] [id number] [address] [place] [address], [place] [address] Sep, [facility] [address] [id number] [address] [place] [address], [place] [address] Sep, [facility] [address] [id number] [address] [place] [address], [place] [address] Sep, [facility] [address] [id number] [address] [place] [address], [place] [address] Sep, [facility] [address] [id number] [address] [place] [address], [place] [address] Sep, [facility] [address] [id number] [address] [place] [address], [place] [address] Sep, [facility] [address] [id number] [address] [place] [address], [place] [address] Sep, [facility] [address] [id number] [address] [place] [address], [place] [address] Aug, [facility] [address] [id number] [address] [place] [address], [place] [address] Aug, [facility] [address] [id number] [address] [place] [address], [place] [address] May, [facility] [address] [id number] [address] [place] [address], [place] [address] May, [facility] [address] [id number] [address] [place] [address], [place] [address] Apr, [facility] [address] [id number] [address] [place] [address], [place] [address] Apr, [facility] [address] [id number] [address] [place] [address], [place] [address] Apr, [facility] [address] [id number] [address] [place] [address], [place] [address] Apr, [facility] [address] [id number] [address] [place] [address], [place] [address] Apr, [facility] [address] [id number] [address] [place] [address], [place] [address] Apr, [facility] [address] [id number] [address] [place] [address], [place] [address] 18 May, 2012 [facility] [address] [id number] [address] [place] [address], [place] [address] 18 May, 2012 [facility] [address] [id number] [address] [place] [address], [place] [address] 15 May, 2012 [facility] [address] [id number] [address] [place] [address], [place] [address] 15 May, 2012 [facility] [address] [id number] [address] [place] [address], [place] [address] 13 May, 2012 [facility] [address] [id number] [address] [place] [address], [place] [address] 13 May, 2012 [facility] [address] [id number] [address] [place] [address], [place] [address] 13 Apr, 2012 [facility] [address] [id number] [address] [place] [address], [place] [address] 13 Apr, 2012 [facility] [address] [id number] [address] [place] [address], [place] [address] Apr, [facility] [address] [id number] [address] [place] [address], [place] [address] Apr, [facility] [address] [id number] [address] [place] [address], [place] [address] Apr, [facility] [address] [id number] [address] [place] [address], [place] [address] Apr, [facility] [address] [id number] [address] [place] [address], [place] [address] Apr, [facility] [address] [id number] [address] [place] [address], [place] [address] Apr, [facility] [address] [id number] [address] [place] [address], [place] [address] Apr, [facility] [address] [id number] [address] [place] [address], [place] [address] Apr, [facility] [address] [id number] [address] [place] [address], [place] [address] Mar, [facility] [address] [id number] [address] [place] [address], [place] [address] Mar, [facility] [address] [id number] [address] [place] [address], [place] [address] Mar, [facility] [address] [id number] [address] [place] [address], [place] [address] Mar, [facility] [address] [id number] [address] [place] [address], [place] [address] Mar, [facility] [address] [id number] [address] [place] [address], [place] [address] Mar, [facility] [address] [id number] [address] [place] [address], [place] [address] Mar, [facility] [address] [id number] [address] [place] [address], [place] [address] Mar, [facility] [address] [id number] [address] [place] [address], [place] [address] Mar, [facility] [address] [id number] [address] [place] [address], [place] [address] 25 Feb, 2012 [facility] [address] [id number] [address] [place] [address], [place] [address] 16 Sep2011 [facility] [address] [id number] [address] [place] [address], [place] [address] 11 Feb, 2012 [facility] [address] [id number] [address] [place] [address], [place] [address] Jan, [facility] [address] [id number] [address] [place] [address], [place] [address] Jan, [facility] [address] [id number] [address] [place] [address], [place] [address] Jan, [facility] [address] [id number] [address] [place] [address], [place] [address] Jan, [facility] [address] [id number] [address] [place] [address], [place] [address] Jan, [facility] [address] [id number] [address] [place] [address], [place] [address] Jan, [facility] [address] [id number] [address] [place] [address], [place] [address] Jan, [facility] [address] [id number] [address] [place] [address], [place] [address] Jan, [facility] [address] [id number] [address] [place] [address], [place] [address] Jan, [facility] [address] [id number] [address] [place] [address], [place] [address] Jan, [facility] [address] [id number] [address] [place] [address], [place] [address] Dec, [facility] [address] [id number] [address] [place] [address], [place] [address] Dec, [facility] [address] [id number] [address] [place] [address], [place] [address] Dec, [facility] [address] [id number] [address] [place] [address], [place] [address] Dec, [facility] [address] [id number] [address] [place] [address], [place] [address] Nov, [facility] [address] [id number] [address] [place] [address], [place] [address] Nov, [facility] [address] [id number] [address] [place] [address] 07 Nov, 2011 [facility] [address] [id number] [address] [place] [address] October, [facility] [address] [id number] [address] [place] [address] October, [facility] [address] [id number] [address] [place] [address] October, [facility] [address] [id number] [address] [place] [address] October, [facility] [address] [id number] [address] [place] [address] October, [facility] [address] [id number] [address] [place] [address] October, [facility] [address] [id number] [address] [place] [address] Aug, [facility] [address] [id number] [address] [place] [address] Mar, [facility] [address] [id number] [address] [place] [address] Nov, [facility] [address] [id number] [address] [place] [address] May, [facility] [address] [id number] [address] [place] [address] May, [facility] [address] [id number] [address] [place] [address] Apr, [facility] [address] [id number] [address] [place] [address] Mar, [facility] [address] [id number] [address] [place] [address] Mar, IMMUNIZATIONS No Known Immunizations SOCIAL HISTORY Never Assessed REASON FOR VISIT EMR-Yusef PLAN OF CARE VITAL SIGNS MEDICATIONS Medication Instructions Dosage Frequency Start Date End Date Duration S alexandr gentamicin 0.3 % (3 mg/gram) 0.5 in by O phthalmic route 3 times per day for 7 day(s) Dec, Active tramadol 50 mg take 1 tablet by Ora l route 2 times per day as needed PRN pain Aug, Active PredniSONE 20 mg 2 tablet by Oral route 1 time per day for 5 day(s) Apr, Active meclizine 25 mg 1 Tablet by Oral rou te 2 times per day In AM and in the afternoon Aug, Active Omeprazole 20 mg take 1 capsule (20 m g) by oral route once daily before a meal Aug, Active buspirone 10 mg take 2 tablet by Oral route 3 times per day May, Active Melatonin 5 mg 1 Tablet by Oral route 1 time per day HS Aug, Active Gabapentin 600 mg 2 Tablet by Oral rou te 3 times per day PRN for back/hip/leg pain Aug, Active PredniSONE 10 mg 1 Tablet 2 times per day for 5 days T mariana at 8 am and noon. Jul, Active Ibuprofen 200 mg OTC Aug, Ac tive Ondansetron HCl 4 mg 1 tablet by Oral route every 8 hours PRN Aug, Active Flonase 50 mcg/actuation 1 sprays by Carl al route 2 times per day in each nostril Apr, Active Cephalexin 500 mg take 1 Capsule by Oral route 3 times per day for 10 days Jun, Active Calcium 500 by oral route [id number] Aug, Active Fetzima 120 mg 1 Capsule by Oral route 1 time per day Feb, Active Flexeril 10 mg 1 tablet by Oral route 1 time per day P RN muscle spasm Aug, Active RESULTS No Results PROCEDURES No Known procedures INSTRUCTIONS MEDICATIONS ADMINISTERED No Known Medications MEDICAL (GENERAL) HISTORY Type Description Date Medical History Severe spinal stenosis throu cervical spine CT and MRI done 10/2014 at [facility] [place] with Neurosurgery at Medical History Migraine BEAR [...]
--- OUTSIDE RECORDS SUMMARY | 2019-06-19 05:19 | XMS REPORT ---
Author Author Sydnie Huston Doctor Organization [facility] Address Unknown Phone Unavailable Care Team Providers Care Fixed Capital Clerk Name Role Phone Migration, Doctor Unavailable Unavailable PROBLEMS Type Condition ICD9-CM Code TRR19-FJ Code Onset Dates Condition S tatus SNOMED Code Problem Hormone replacement therapy Z79.890 Ac tive 730508343 Problem Sensorineural hearing loss (SNHL) of both ears H90 .3 Active 880701295 Problem Abnormal CT scan, head R93.0 Active 432991277 Problem Arthralgia of hip, unspecified laterality M25.559 Active 92321929 Problem Bruising, spontaneous R23.3 Active 712922438 Problem Hypertension I10 Active 6959174 3 Problem Night sweats R61 Active 0535019 0 Problem Imbalance R26.89 Active 308025496 Problem Hammer toe of right foot M20.41 Activ e 280164075 Problem Bipolar 1 disorder, mixed F31.60 Acti ve 31669546 Problem Gastritis without bleeding, unspecified chronicity, unspecified gastritis type K29.70 Active 415620613 Problem Hearing loss, unspecified laterality H91.90 Active 61134427 Problem Ataxia R27.0 Active 02794647 Problem History of colon polyps Z86.010 Active 358689515 Problem Allergic rhinitis J30.9 Active 61 369465 Problem Hematuria, unspecified type R31.9 Ac tive 92131399 Problem Generalized anxiety disorder F41.1 A ctive 56366190 Problem Major depressive disorder, recurrent episode, moderate F33.1 Active 993505958 Problem Fibromyalgia M79.7 Active 4866949 7 Problem Bladder spasm N32.89 Active 471025 006 Problem Tobacco use disorder F17.200 Active 061503784 Problem Grief F43.20 Active 81555618 Problem Post menopausal syndrome N95.1 Activ e 474261464 Problem Hyperlipidemia, unspecified hyperlipidemia type E7 8.5 Active 43086626 Problem Other chronic pain G89.29 Active 8 3900350 Problem Acute left-sided low back pain with left-sided sciatica M54.42 Active 201057883 Problem Sciatica of left side M54.32 Active 71407831 Problem Plantar wart of right foot B07.0 Act mitchell [id number] Problem Slow transit constipation K59.01 Acti ve 34871034 ALLERGIES No Information ENCOUNTERS Encounter Location Date Diagnosis [facility] [address] [facility] [id number] [address] [place] [address] October, [facility] [address] [facility] [id number] [address] [place] [address] October, [facility] [address] [facility] [id number] [address] [place] [address] October, [facility] [address] [place] [id number] [address] [place] [address] October, [facility] [address] [place] [id number] [address] [place] [address] Sep, [facility] [address] [place] [id number] [address] [place] [address] Sep, Encounter for Medicare annua l wellness exam Z00.00 ; Major depressive disorder, recurrent episode, moderate F33.1 ; Allergic rhinitis J30.9 ; Bipolar 1 disorder, mixed F31.60 ; Fibromyalgia M79.7 ; Hyperlipidemia, unspecified hyperlipidemia type E78.5 ; Hormone replacement therapy Z79.890 ; Encounter for screening for lung cancer Z12.2 and Tobacco use disorder F17.200 [facility] [address] [facility] [id number] [address] [place] [address] Sep, Bipolar 1 disorder, mixed F3 1.60 [facility] [address] [facility] [id number] [address] [place] [address] Sep, Other chronic pain G89.29 ; Hyperlipidemia, unspecified hyperlipidemia type E78.5 ; Breast cancer screening Z12.31 and Post menopausal syndrome N95.1 [facility] [address] [facility] [id number] [address] [place] [address] Sep, Bipolar 1 disorder, mixed F3 1.60 [facility] [address] [address] 15 Sep, 2018 Bipolar 1 disorder, mixed F3 1.60 ; Generalized anxiety disorder F41.1 and Tobacco use disorder F17.200 [place] [address] [address] Sep, Gastritis without bleeding, unspecified chronicity, unspecified gastritis type K29.70 [place] [address] [address] 08 Sep, 2018 Exercise counseling Z71.82 [place] [address] [address] Aug, Exercise counseling Z71.82 [place] [address] [address] Aug, Bipolar 1 disorder, mixed F3 1.60 [place] [address] [address] Aug, Exercise counseling Z71.82 [place] [address] [address] Aug, Bipolar 1 disorder, mixed F3 1.60 [place] [address] [address] Aug, Gastritis without bleeding, unspecified chronicity, unspecified gastritis type K29.70 ; Tobacco abuse Z72.0 ; Generalized anxiety disorder F41.1 and Weight gain R63.5 [place] [address] [address] 14 Aug, 2018 Bipolar 1 disorder, mixed F3 1.60 ; Generalized anxiety disorder F41.1 and Tobacco use disorder F17.200 [place] [address] [address] Jul, Bipolar 1 disorder, mixed F3 1.60 [place] [address] [address] Jul, [place] [address] [place] [id number] [address] [place] [address] 18 Jul, 2018 Bipolar 1 disorder, mixed F3 1.60 [facility] [address] [facility] [id number] [address] [place] [address] 11 Jul, 2018 Allergic rhinitis J30.9 ; Ma darion depressive disorder, recurrent episode, moderate F33.1 and Tobacco 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 [facility] [address] [facility] [id number] [address] [place] [address] Jun, [facility] [address] [facility] [id number] [address] [place] [address] Jun, [facility] [address] [facility] [id number] [address] [place] [address] Jun, Bipolar 1 disorder, mixed F3 1.60 [place] [address] [place] [id number] [address] [place] [address] Jun, Bipolar 1 disorder, mixed F3 1.60 [place] [address] [facility] [id number] [address] [place] [address] Jun, Bipolar 1 disorder, mixed F3 1.60 [place] [address] [facility] [id number] [address] [place] [address] Jun, Generalized anxiety disorder F41.1 ; Tobacco abuse Z72.0 and Major depressive disorder, recurrent episode, moderate F33.1 [place] [address] [facility] [id number] [address] [place] [address] May, Bipolar 1 disorder, mixed F3 1.60 [place] [address] [facility] [id number] [address] [place] [address] May, Bipolar 1 disorder, mixed F3 1.60 and Generalized anxiety disorder F41.1 [facility] [address] [facility] [id number] [address] [place] [address] May, Bipolar 1 disorder, mixed F3 1.60 [place] [address] [place] [id number] [address] [place] [address] May, Allergic rhinitis J30.9 [facility] [address] [place] [id number] [address] [place] [address] May, Bipolar 1 disorder, mixed F3 1.60 [facility] [address] [place] [id number] [address] [place] [address] May, [facility] [address] [place] [id number] [address] [place] [address] Apr, Allergic rhinitis J30.9 ; Dy sfunction of both eustachian tubes H69.83 ; History of bladder surgery Z98.890 and Cervicalgia M54.2 [facility] [address] [place] [id number] [address] [place] [address] Mar, Bipolar 1 disorder, mixed F3 1.60 [place] [address] [place] [id number] [address] [place] [address] Mar, [facility] [address] [place] [id number] [place] [address] Mar, Slow transit constipation K5 9.01 ; Encounter for immunization Z23 and Generalized anxiety disorder F41.1 [facility] [address] [place] [id number] [address] [place] [address] Feb, Bipolar 1 disorder, mixed F3 1.60 [facility] [address] [place] [id number] [address] [place] [address] Feb, Allergic rhinitis J30.9 [facility] [address] [place] [id number] [address] [place] [address] Feb, Bipolar 1 disorder, mixed F3 1.60 [facility] [address] [place] [id number] [address] [place] [address] Feb, Bipolar 1 disorder, mixed F3 1.60 and Generalized anxiety disorder F41.1 [facility] [address] [place] [id number] [address] [place] [address] Feb, Bipolar 1 disorder, mixed F3 1.60 [facility] [address] [place] [id number] [place] [address] Feb, Allergic rhinitis J30.9 [place] [address] [place] [id number] [address] [place] [address] Feb, [facility] [address] [place] [id number] [address] [place] [address] Jan, Bipolar 1 disorder, mixed F3 1.60 [place] [address] [place] [id number] [address] [place] [address] Jan, Low back pain M54.5 ; Hyperl ipidemia, unspecified hyperlipidemia type E78.5 and Bipolar 1 disorder, mixed F31.60 [place] [address] [place] [id number] [address] [place] [address] Jan, Bipolar 1 disorder, mixed F3 1.60 [place] [address] [address] Jan, Bipolar 1 disorder, mixed F3 1.60 [place] [address] [place] [id number] [address] [place] [address] Jan, Bipolar 1 disorder, mixed F3 1.60 [place] [address] [place] [id number] [address] [place] [address] Jan, Bipolar 1 disorder, mixed F3 1.60 [place] [address] [place] [id number] [address] [place] [address] Dec, Bipolar 1 disorder, mixed F3 1.60 ; Generalized anxiety disorder F41.1 and Other correction (current) drug therapy Z79.899 [place] [address] [facility] [id number] [address] [place] [address] Dec, Other correction (current) dr ug therapy Z79.899 [place] [address] [facility] [id number] [address] [place] [address] Dec, Bipolar 1 disorder, mixed F3 1.60 [place] [address] [place] [id number] [address] [place] [address] Dec, Bipolar 1 disorder, mixed F3 1.60 [facility] [address] [place] [id number] [place] [address] Nov, Bipolar 1 disorder, mixed F3 1.60 [facility] [address] [place] [id number] [address] [place] [address] Nov, Bipolar 1 disorder, mixed F3 1.60 [place] [address] [address] Nov, Bipolar 1 disorder, mixed F3 1.60 [place] [address] [place] [id number] [place] [address] Nov, Allergic rhinitis J30.9 [place] [address] [place] [id number] [place] [address] Nov, Allergic rhinitis J30.9 [place] [address] [address] Nov, [facility] [address] [address] Nov, Bipolar 1 disorder, mixed F3 1.60 [place] [address] [address] Nov, Fibromyalgia M79.7 and Aller gic rhinitis J30.9 [place] [address] [place] [id number] [address] [place] [address] October, Bipolar 1 disorder, mixed F3 1.60 [facility] [address] [place] [id number] [address] [place] [address] October, Acute nasopharyngitis J00 [facility] [address] [place] [id number] [address] [place] [address] October, Bitten or stung by nonvenomo us insect and other nonvenomous arthropods, initial encounter W57.XXXA and Insect bite (nonvenomous) of abdominal wall, initial encounter S30.861A [place] [address] [facility] [id number] [address] [place] [address] October, Insect bite (nonvenomous) of abdominal wall, initial encounter S30.861A ; Bitten or stung by nonvenomous insect and other nonvenomous arthropods, initial encounter W57.XXXA ; Allergic rhinitis J30.9 and Low back pain M54.5 [facility] [address] [facility] [id number] [address] [place] [address] October, Bipolar 1 disorder, mixed F3 1.60 [facility] [address] [facility] [id number] [address] [place] [address] October, [facility] [address] [facility] [id number] [address] [place] [address] October, [facility] [address] [place] [id number] [address] [place] [address] October, Bipolar 1 disorder, mixed F3 1.60 [facility] [address] [facility] [id number] [address] [place] [address] Sep, Bipolar 1 disorder, mixed F3 1.60 [facility] [address] [place] [id number] [address] [place] [address] Sep, Other chronic pain G89.29 [facility] [address] [place] [id number] [address] [place] [address] Sep, [facility] [address] [facility] [id number] [address] [place] [address] Sep, Bipolar 1 disorder, mixed F3 1.60 [facility] [address] [facility] [id number] [address] [place] [address] Sep, Allergic rhinitis J30.9 and Sciatica of left side M54.32 [facility] [address] [facility] [id number] [address] [place] [address] Sep, Bipolar 1 disorder, mixed F3 1.60 [facility] [address] [facility] [id number] [address] [place] [address] Sep, Bipolar 1 disorder, mixed F3 1.60 and Generalized anxiety disorder F41.1 [facility] [address] [facility] [id number] [address] [place] [address] Aug, [facility] [address] [facility] [id number] [address] [place] [address] Aug, Bipolar 1 disorder, mixed F3 1.60 [facility] [address] [facility] [id number] [address] [place] [address] Aug, Bipolar 1 disorder, mixed F3 1.60 [facility] [address] [facility] [id number] [address] [place] [address] Aug, [facility] [address] [facility] [id number] [address] [place] [address] Aug, Generalized anxiety disorder F41.1 [facility] [address] [place] [id number] [address] [place] [address] Aug, Bipolar 1 disorder, mixed F3 1.60 [facility] [address] [facility] [id number] [address] [place] [address] Aug, Plantar wart of right foot B 07.0 [facility] [address] [facility] [id number] [address] [place] [address] Aug, Bipolar 1 disorder, mixed F3 1.60 [facility] [address] [facility] [id number] [address] [place] [address] Jul, Bipolar 1 disorder, mixed F3 1.60 [facility] [address] [facility] [id number] [address] [place] [address] Jul, [facility] [address] [facility] [id number] [address] [place] [address] 14 Jul, 2017 Bipolar 1 disorder, mixed F3 1.60 [facility] [address] [facility] [id number] [address] [place] [address] 09 Jul, 2017 Generalized anxiety disorder F41.1 [facility] [address] [facility] [id number] [address] [place] [address] 07 Jul, 2017 Bipolar 1 disorder, mixed F3 1.60 [facility] [address] [facility] [id number] [address] [place] [address] 07 Jul, 2017 Acute left-sided low back pa in with left-sided sciatica M54.42 [facility] [address] [facility] [id number] [address] [place] [address] 05 Jul, 2017 Coccydynia M53.3 [facility] [address] [facility] [id number] [address] [place] [address] Jun, Bipolar 1 disorder, mixed F3 1.60 [facility] [address] [facility] [id number] [address] [place] [address] Jun, Acute nasopharyngitis J00 [place] [address] [place] [id number] [address] [place] [address] Jun, Bipolar 1 disorder, mixed F3 1.60 [place] [address] [place] [id number] [address] [place] [address] Jun, Fibromyalgia M79.7 [place] [address] [facility] [id number] [address] [place] [address] Jun, Bipolar 1 disorder, mixed F3 1.60 [place] [address] [place] [id number] [address] [place] [address] Jun, Fibromyalgia M79.7 and Bipol ar 1 disorder, mixed F31.60 [facility] [address] [facility] [id number] [address] [place] [address] May, Bipolar 1 disorder, mixed F3 1.60 ; Generalized anxiety disorder F41.1 and Other correction (current) drug therapy Z79.899 [facility] [address] [facility] [id number] [address] [place] [address] May, Bipolar 1 disorder, mixed F3 1.60 [facility] [address] [facility] [id number] [address] [place] [address] 14 May, 2017 Cough R05 and Body aches R52 [facility] [address] [address] 10 May, 2017 Bladder spasm N32.89 and Acu te cystitis without hematuria N30.00 [facility] [address] [address] 07 May, 2017 Bipolar 1 disorder, mixed F3 1.60 [facility] [address] [address] 30 Apr, 2017 [place] [address] [address] Apr, Major depressive disorder, r ecurrent episode, moderate F33.1 and Encounter for immunization Z23 [place] [address] [address] Apr, Bipolar 1 disorder, mixed F3 1.60 [place] [address] [address] 22 Apr, 2017 Bipolar 1 disorder, mixed F3 1.60 [place] [address] [address] 16 Apr, 2017 Bipolar 1 disorder, mixed F3 1.60 [place] [address] [address] 13 Apr, 2017 Yeast vaginitis B37.3 [place] [address] [address] 09 Apr, 2017 Bipolar 1 disorder, mixed F3 1.60 [facility] [address] [address] 07 Apr, [address] for immunization Z23 [facility] [address] [address] 02 Apr, 2017 Bipolar 1 disorder, mixed F3 1.60 [place] [address] [address] Mar, Bipolar 1 disorder, mixed F3 1.60 [place] [address] [place] [address] Mar, Bipolar 1 disorder, mixed F3 1.60 [place] [address] [address] Mar, Imbalance R26.89 and Encount er for immunization Z23 [place] [address] [address] Mar, Generalized anxiety disorder F41.1 [place] [address] [place] [address] Mar, Bipolar 1 disorder, mixed F3 1.60 [place] [address] [address] Mar, Generalized anxiety disorder F41.1 [place] [address] [address] Mar, Bipolar 1 disorder, mixed F3 1.60 [place] [address] [place] [address] Mar, Bipolar 1 disorder, mixed F3 1.60 [place] [address] [address] Feb, Bipolar 1 disorder, mixed F3 1.60 [place] [address] [address] Feb, Bipolar 1 disorder, mixed F3 1.60 and Generalized anxiety disorder F41.1 [place] [address] [place] [address] Feb, Gastritis without bleeding, unspecified chronicity, unspecified gastritis type K29.70 ; Hammer toe of right foot M20.41 and Other viral warts B07.8 [place] [address] [address] Feb, Bipolar 1 disorder, mixed F3 1.60 [facility] [address] [facility] [id number] [address] [place] [address] 13 Feb, 2017 Bipolar 1 disorder, mixed F3 1.60 [facility] [address] [facility] [id number] [address] [place] [address] 05 Feb, 2017 Bipolar 1 disorder, mixed F3 1.60 [facility] [address] [facility] [id number] [address] [place] [address] Jan, Encounter for screening mamm ogram for breast cancer Z12.31 ; Other viral warts B07.8 and Allergic rhinitis J30.9 [facility] [address] [facility] [id number] [address] [place] [address] Jan, Bipolar 1 disorder, mixed F3 1.60 [facility] [address] [facility] [id number] [address] [place] [address] Jan, Bipolar 1 disorder, mixed F3 1.60 [facility] [address] [facility] [id number] [address] [place] [address] 14 Jan, 2017 [facility] [address] [facility] [id number] [address] [place] [address] Jan, Bipolar 1 disorder, mixed F3 1.60 [facility] [address] [facility] [id number] [address] [place] [address] Jan, Bipolar 1 disorder, mixed F3 1.60 [facility] [address] [facility] [id number] [address] [place] [address] Jan, Allergic rhinitis J30.9 ; He maturia R31.9 and Colon cancer screening Z12.11 [facility] [address] [facility] [id number] [address] [place] [address] Dec, Bipolar 1 disorder, mixed F3 1.60 [facility] [address] [facility] [id number] [address] [place] [address] 18 Dec, 2016 Bipolar 1 disorder, mixed F3 1.60 ; Generalized anxiety disorder F41.1 and Other long term care pharmacist (current) drug therapy Z79.899 [facility] [address] [facility] [id number] [address] [place] [address] Dec, Bipolar 1 disorder, mixed F3 1.60 [facility] [address] [facility] [id number] [address] [place] [address] Dec, Bipolar 1 disorder, mixed F3 1.60 [facility] [address] [facility] [id number] [address] [place] [address] Dec, Bipolar 1 disorder, mixed F3 1.60 [facility] [address] [facility] [id number] [address] [place] [phone] Dec, Low back pain M54.5 and Recu rrent urinary tract infection N39.0 [place] [address] [place] [id number] [address] [place] [phone] Nov, Bipolar 1 disorder, mixed F3 1.60 [place] [address] [facility] [id number] [address] [place] [phone] Nov, Bipolar 1 disorder, mixed F3 1.60 [place] [address] [place] [id number] [address] [place] [id number] Nov, Bipolar 1 disorder, mixed F3 1.60 [facility] [address] [place] [id number] [address] [place] [phone] Nov, Bipolar 1 disorder, mixed F3 1.60 [place] [address] [facility] [id number] [address] [place] [phone] Nov, [facility] [address] [facility] [id number] [address] [place] [phone] Nov, Anesthesia of skin R20.0 ; F requent UTI N39.0 ; Tobacco abuse Z72.0 and Colon cancer screening Z12.11 [facility] [address] [place] [id number] [address] [place] [phone] Nov, Bipolar 1 disorder, mixed F3 1.60 [place] [id number] [place] [phone] October, Bipolar 1 disorder, mixed F3 1.60 [facility] [address] [place] [id number] October, Bipolar 1 disorder, mixed F3 1.60 [place] [address] [id number] October, Bipolar 1 disorder, mixed F3 1.60 [place] [address] [id number] October, Bipolar 1 disorder, mixed F3 1.60 [place] [address] [id number] October, Bipolar 1 disorder, mixed F3 1.60 [place] [address] [address] October, Cervicalgia M54.2 and Bipola r 1 disorder, mixed F31.60 [place] [address] [place] [id number] [place] [address] October, Hypertension I10 ; Hyperlipi demia, unspecified hyperlipidemia type E78.5 and Family history of thyroid disease Z83.49 [place] [address] [address] October, [place] [address] [address] October, Hypertension I10 ; Hyperlipi demia, unspecified hyperlipidemia type E78.5 and Family history of thyroid problem Z83.49 [place] [address] [place] [id number] [place] [address] October, Bipolar 1 disorder, mixed F3 1.60 [place] [address] [place] [id number] [address] [place] [address] Sep, Bipolar 1 disorder, mixed F3 1.60 [place] [address] [address] Sep, Bipolar 1 disorder, mixed F3 1.60 [facility] [address] [place] [id number] [address] [place] [address] Sep, Bipolar 1 disorder, mixed F3 1.60 [facility] [address] [place] [id number] [address] [place] [address] Sep, History of colon polyps Z86. 010 and Hematochezia K92.1 [facility] [address] [place] [id number] [address] [place] [address] Sep, Major depressive disorder, r ecurrent episode, moderate F33.1 [facility] [address] [place] [id number] [place] [address] Sep, Bipolar 1 disorder, mixed F3 1.60 [facility] [address] [place] [id number] [address] [place] [address] Aug, Hot flashes due to menopause N95.1 [facility] [address] [place] [id number] [address] [place] [address] Aug, Bipolar 1 disorder, mixed F3 1.60 [facility] [address] [place] [id number] [address] [place] [address] Aug, [facility] [address] [place] [id number] [address] [place] [address] Aug, Bipolar 1 disorder, mixed F3 1.60 [facility] [address] [place] [id number] [address] [place] [address] Aug, Bipolar 1 disorder, mixed F3 1.60 [facility] [address] [place] [id number] [address] [place] [address] Aug, Hot flashes due to menopause N95.1 ; Cervicalgia M54.2 and Ataxia R27.0 [facility] [address] [place] [id number] [address] [place] [address] Jul, Bipolar 1 disorder, mixed F3 1.60 [facility] [address] [address] Jul, Bipolar 1 disorder, mixed F3 1.60 [place] [address] [place] [address] Jul, Bipolar 1 disorder, mixed F3 1.60 [place] [address] [address] Jul, Bipolar 1 disorder, mixed F3 1.60 [place] [address] [address] Jul, Bipolar 1 disorder, mixed F3 1.60 [place] [address] [place] [address] 08 Jul, 2016 Cervicalgia M54.2 ; Tremor R 25.1 ; Hearing abnormally acute, unspecified laterality H93.239 ; Alopecia L65.9 ; Encounter for immunization Z23 and Family history of thyroid disease Z83.49 [place] [address] [address] Jul, Bipolar 1 disorder, mixed F3 1.60 [place] [address] [address] Jun, [place] [address] [address] Jun, Hearing disorder, unspecifie d laterality H93.299 [place] [address] [address] Jun, Bipolar 1 disorder, mixed F3 1.60 [place] [address] [address] Jun, Bipolar 1 disorder, mixed F3 1.60 [place] [address] [address] Jun, Allergic rhinitis J30.9 [place] [address] [address] Jun, Bipolar 1 disorder, mixed F3 1.60 [facility] [address] [id number] [address] [place] [address] Jun, Bipolar 1 disorder, mixed F3 1.60 [facility] [address] [id number] [address] [place] [address] Jun, Allergic rhinitis J30.9 [facility] [address] [id number] [address] [place] [address] Jun, Allergic rhinitis J30.9 [facility] [address] [id number] [address] [place] [address] Jun, Bipolar 1 disorder, mixed F3 1.60 [facility] [address] [id number] [address] [place] [address] May, Bipolar 1 disorder, mixed F3 1.60 [facility] [address] [id number] [address] [place] [address] May, Bipolar 1 disorder, mixed F3 1.60 [facility] [address] [id number] [address] [place] [address] May, [facility] [address] [id number] [address] [place] [address] May, Bipolar 1 disorder, mixed F3 1.60 [facility] [address] [id number] [address] [place] [address] May, Bipolar 1 disorder, mixed F3 1.60 [facility] [address] [id number] [address] [place] [address] May, [facility] [address] [id number] [address] [place] [address] May, [facility] [address] [id number] [address] [place] [address] May, [facility] [address] [id number] [address] [place] [address] May, Abdominal pain, unspecified location R10.9 [facility] [address] [place] [id number] [address] [place] [address] May, [facility] [address] [address] Apr, Hematuria R31.9 ; Ataxia R27 .0 and Hearing loss, unspecified laterality H91.90 [facility] [address] [address] Apr, Bipolar 1 disorder, mixed F3 1.60 [facility] [address] [address] Apr, Acute effusion of both middl e ears H65.193 [facility] [address] [address] Apr, Hematuria R31.9 and Pyelonep hritis N12 [place] [address] [place] [id number] [address] [place] [address] Apr, [facility] [address] [address] Mar, Bipolar 1 disorder, mixed F3 1.60 [facility] [address] [address] Mar, [facility] [address] [address] Mar, Bipolar 1 disorder, mixed F3 1.60 [place] [address] [place] [id number] [address] [place] [address] Mar, Bipolar 1 disorder, mixed F3 1.60 [place] [address] [address] Mar, Encounter for immunization Z 23 and Gastritis without bleeding, unspecified chronicity, unspecified gastritis type K29.70 [facility] [address] [place] [id number] [address] [place] [address] Mar, Bipolar 1 disorder, mixed F3 1.60 and Grief F43.20 [place] [address] Mar, Gastritis without bleeding, unspecified chronicity, unspecified gastritis type K29.70 [place] [address] Mar, Bipolar 1 disorder, mixed F3 1.60 [place] [address] Mar, Gastritis without bleeding, unspecified chronicity, unspecified gastritis type K29.70 [place] [address] Mar, [place] [address] Feb, Bipolar 1 disorder, mixed F3 1.60 [place] [address] Feb, Bipolar 1 disorder, mixed F3 1.60 and Grief F43.20 [place] [address] Feb, Gastritis without bleeding, unspecified chronicity, unspecified gastritis type K29.70 [place] [address] [place] [address] 14 Feb, 2016 Bipolar 1 disorder, mixed F3 1.60 [facility] [address] [place] [id number] [address] [place] [address] 09 Feb, 2016 Gastroesophageal reflux dise ase, esophagitis presence not specified K21.9 [place] [address] [place] [address] Jan, Bipolar 1 disorder, mixed F3 1.60 [facility] [address] [place] [id number] [address] [place] [address] Jan, Bipolar 1 disorder, mixed F3 1.60 and Unsteady gait R26.81 [facility] [address] [facility] [id number] [address] [place] [address] Jan, Bipolar 1 disorder, mixed F3 1.60 [place] [address] [facility] [id number] [address] [place] [address] Jan, Bipolar 1 disorder, mixed F3 1.60 and Other long term care pharmacist (current) drug therapy Z79.899 [facility] [address] [facility] [id number] [address] [place] [address] Jan, Bipolar 1 disorder, mixed F3 1.60 [place] [address] [facility] [id number] [address] [place] [address] Jan, Bipolar 1 disorder, mixed F3 1.60 [place] [address] [place] [id number] [address] [place] [address] Jan, Bipolar 1 disorder, mixed F3 1.60 ; Grief F43.20 and Other long term care pharmacist (current) drug therapy Z79.899 [place] [address] [facility] [id number] [address] [place] [address] Jan, Bipolar 1 disorder, mixed F3 1.60 [place] [address] [place] [id number] [address] [place] [address] Dec, [place] [address] [place] [id number] [address] [place] [address] Dec, Bipolar 1 disorder, mixed F3 1.60 ; Vitamin D deficiency, unspecified E55.9 ; H/O allergic rhinitis Z87.09 ; Other chronic pain G89.29 and Dorsalgia, unspecified M54.9 [place] [address] [facility] [id number] [address] [place] [address] Dec, [place] [address] [place] [id number] [address] [place] [address] Dec, Bipolar 1 disorder, mixed F3 1.60 [place] [address] [place] [id number] [address] [place] [address] Dec, Major depressive disorder, r ecurrent episode, moderate F33.1 [facility] [address] [facility] [id number] [address] [place] [address] Dec, Major depressive disorder, r ecurrent episode, moderate F33.1 [place] [address] [facility] [id number] [address] [place] [address] Nov, [facility] [address] [place] [id number] [address] [place] [address] Nov, Bipolar 1 disorder, mixed F3 1.60 [place] [address] [facility] [id number] [address] [place] [address] Nov, Major depressive disorder, r ecurrent episode, moderate F33.1 [place] [address] [place] [id number] [address] [place] [address] Nov, Cervicalgia M54.2 ; Arthralg ia of hip, unspecified laterality M25.559 ; Allergic rhinitis J30.9 and Hormone replacement therapy Z79.890 [facility] [address] [place] [address] Nov, Other seasonal allergic rhin itis J30.2 [place] [address] [place] [address] October, Major depressive disorder, r ecurrent episode, moderate F33.1 [facility] [address] [place] [address] October, Major depressive disorder, r ecurrent episode, moderate F33.1 and Arthralgia of hip, unspecified laterality M25.559 [place] [address] [place] [address] October, Grief F43.20 ; Hypertension I10 ; Hyperlipidemia, unspecified hyperlipidemia type E78.5 ; Other chronic pain G89.29 and Allergic rhinitis, unspecified allergic rhinitis type J30.9 [facility] [address] [place] [address] October, Major depressive disorder, r ecurrent episode, moderate F33.1 [facility] [address] [facility] [id number] [address] [place] [address] Sep, Major depressive disorder, r ecurrent episode, moderate F33.1 [facility] [address] [facility] [id number] [address] [place] [address] Sep, [facility] [address] [facility] [id number] [address] [place] [address] Sep, Major depressive disorder, r ecurrent episode, moderate F33.1 [place] [address] [facility] [id number] [address] [place] [address] Sep, Grief F43.20 [facility] [address] [facility] [id number] [address] [place] [address] Aug, Major depressive disorder, r ecurrent episode, moderate F33.1 [place] [address] [place] [id number] [address] [place] [address] Aug, Bipolar 1 disorder, mixed F3 1.60 [place] [address] [place] [id number] [address] [place] [address] Aug, Allergic rhinitis J30.9 ; Ce rvicalgia M54.2 and Low back pain M54.5 [facility] [address] [facility] [id number] [address] [place] [address] Aug, Major depressive disorder, r ecurrent episode, moderate F33.1 [facility] [address] [facility] [id number] [address] [place] [address] Aug, Sinusitis J32.9 and Tobacco 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 [facility] [address] [facility] [id number] [address] [place] [address] Aug, [facility] [address] [facility] [id number] [address] [place] [address] Aug, Depressive disorder, not els ewhere classified F32.9 ; Hormone replacement therapy Z79.[address] scan, head R93.0 [facility] [address] [id number] [address] [place] [address] 08 Aug, 2015 Major depressive disorder, r ecurrent episode, moderate F33.1 [facility] [address] [id number] [address] [place] [address] Jul, Major depressive disorder, r ecurrent episode, moderate F33.1 [facility] [address] [id number] [address] [place] [address] Jul, Abdominal pain R10.9 and Hyp ertension I10 [facility] [address] [id number] [address] [place] [address] Jul, [facility] [address] [id number] [address] [place] [address] Jul, Major depressive disorder, r ecurrent episode, moderate F33.1 [facility] [address] [id number] [address] [place] [address] Jul, [facility] [address] [id number] [address] [place] [address] Jul, [facility] [address] [id number] [address] [place] [address] Jun, [facility] [address] [id number] [address] [place] [address] Jun, Depressive disorder, not els ewhere classified F32.9 [facility] [address] [id number] [address] [place] [address] Jun, [facility] [address] [id number] [address] [place] [address] Jun, [facility] [address] [facility] [id number] [address] [place] [address] Jun, Arthralgia of hip, unspecifi ed laterality M25.559 ; Bruising, spontaneous R23.3 and Night sweats R61 [facility] [address] [id number] [address] [place] [address] Jun, [facility] [address] [id number] [address] [place] [address] Jun, [facility] [address] [id number] [address] [place] [address] May, [facility] [address] [id number] [address] [place] [address] May, Myalgia M79.1 and Screening, lipid Z13.220 [facility] [address] [facility] [id number] [address] [place] [address] Apr, Status post cervical spinal fusion Z98.1 ; Fibromyalgia M79.7 and Unsteady gait R26.81 [facility] [address] [id number] [address] [place] [address] Nov, [facility] [address] [id number] [address] [place] [address] Nov, [facility] [address] [id number] [address] [place] [address] October, [facility] [address] [facility] [id number] [address] [place] [address] October, [facility] [address] [id number] [address] [place] [address] October, [facility] [address] [id number] [address] [place] [address] October, [facility] [address] [facility] [id number] [address] [place] [address] October, [facility] [address] [facility] [id number] [address] [place] [address] October, Dysuria 788.1 ; Nausea 787.0 2 and Urinary tract infection 599.0 [facility] [address] [id number] [address] [place] [address] 14 Sep, 2014 [facility] [address] [id number] [facility] [place] [address] 13 Sep, 2014 [facility] [address] [id number] [address] [place] [address], [place] [address] 25 Aug, 2014 [facility] [address] [id number] [address] [place] [address], [place] [address] 25 Aug, 2014 [facility] [address] [id number] [address] [place] [address], [place] [address] 24 Aug, 2014 [facility] [address] [id number] [address] [place] [address], [place] [address] 24 Aug, 2014 [facility] [address] [id number] [address] [place] [address], [place] [address] 23 Aug, 2014 [facility] [address] [id number] [address] [place] [address], [place] [address] 19 Aug, 2014 [facility] [address] [id number] [address] [place] [address], [place] [address] 19 Aug, 2014 [facility] [address] [id number] [address] [place] [address], [place] [address] 19 Aug, 2014 [facility] [address] [id number] [address] [place] [address], [place] [address] 19 Aug, 2014 [facility] [address] [id number] [address] [place] [address], [place] [address] 18 Aug, 2014 [facility] [address] [id number] [address] [place] [address], [place] [address] 18 Aug, 2014 [facility] [address] [id number] [address] [place] [address], [place] [address] 13 Aug, 2014 [facility] [address] [id number] [address] [place] [address], [place] [address] 13 Aug, 2014 [facility] [address] [id number] [address] [place] [address], [place] [address] 11 Aug, 2014 [facility] [address] [id number] [address] [place] [address], [place] [address] Aug, [facility] [address] [id number] [address] [place] [address], [place] [address] Aug, 2014 [facility] [address] [id number] [address] [place] [address], [place] [address] Aug, 2014 [facility] [address] [id number] [address] [place] [address], [place] [address] Aug, 2014 [facility] [address] [id number] [address] [place] [address], [place] [address] Aug, 2014 [facility] [address] [id number] [address] [place] [address], [place] [address] Aug, [facility] [address] [id number] [address] [place] [address], [place] [address] Aug, [facility] [address] [id number] [address] [place] [address], [place] [address] Aug, [facility] [address] [id number] [address] [place] [address], [place] [address] Jul, [facility] [address] [id number] [address] [place] [address], [place] [address] Jul, [facility] [address] [id number] [address] [place] [address], [place] [address] Jul, [facility] [address] [id number] [address] [place] [address], [place] [address] Jul, 2014 [facility] [address] [id number] [address] [place] [address], [place] [address] Jul, [facility] [address] [id number] [address] [place] [address], [place] [address] Jul, [facility] [address] [id number] [address] [place] [address], [place] [address] Jul, 2014 [facility] [address] [id number] [address] [place] [address], [place] [address] Jul, [facility] [address] [id number] [address] [place] [address], [place] [address] Jul, [facility] [address] [id number] [address] [place] [address], [place] [address] Jul, [facility] [address] [id number] [address] [place] [address], [place] [address] Jul, [facility] [address] [id number] [address] [place] [address], [place] [address] Jul, 2014 [facility] [address] [id number] [address] [place] [address], [place] [address] Jul, [facility] [address] [id number] [address] [place] [address], [place] [address] Jul, [facility] [address] [id number] [address] [place] [address], [place] [address] Jun, [facility] [address] [id number] [address] [place] [address], [place] [address] Jun, [facility] [address] [id number] [address] [place] [address], [place] [address] Jun, [facility] [address] [id number] [address] [place] [address], [place] [address] Jun, [facility] [address] [id number] [address] [place] [address], [place] [address] Jun, [facility] [address] [id number] [address] [place] [address], [place] [address] Jun, [facility] [address] [id number] [address] [place] [address], [place] [address] May, [facility] [address] [id number] [address] [place] [address], [place] [address] May, [facility] [address] [id number] [address] [place] [address], [place] [address] May, [facility] [address] [id number] [address] [place] [address], [place] [address] May, [facility] [address] [id number] [address] [place] [address], [place] [address] May, [facility] [address] [id number] [address] [place] [address], [place] [address] May, [facility] [address] [id number] [address] [place] [address], [place] [address] Apr, [facility] [address] [id number] [address] [place] [address], [place] [address] Apr, [facility] [address] [id number] [address] [place] [address], [place] [address] Apr, [facility] [address] [id number] [address] [place] [address], [place] [address] Apr, [facility] [address] [id number] [address] [place] [address], [place] [address] Apr, [facility] [address] [id number] [address] [place] [address], [place] [address] Apr, [facility] [address] [id number] [address] [place] [address], [place] [address] Mar, [facility] [address] [id number] [address] [place] [address], [place] [address] Mar, [facility] [address] [id number] [address] [place] [address], [place] [address] Mar, [facility] [address] [id number] [address] [place] [address], [place] [address] Mar, [facility] [address] [id number] [address] [place] [address], [place] [address] Mar, [facility] [address] [id number] [address] [place] [address], [place] [address] Mar, [facility] [address] [id number] [address] [place] [address], [place] [id number] Mar, [facility] [address] [id number] [address] [place] [address], [place] [address] Mar, [facility] [address] [id number] [address] [place] [address], [place] [address] Mar, [facility] [address] [id number] [address] [place] [address], [place] [address] Mar, [facility] [address] [id number] [address] [place] [address], [place] [address] Mar, [facility] [address] [id number] [address] [place] [address], [place] [address] Mar, [facility] [address] [id number] [address] [place] [address], [place] [address] 30 Feb, 2014 [facility] [address] [id number] [address] [place] [address], [place] [address] 29 Feb, 2014 [facility] [address] [id number] [address] [place] [address], [place] [address] 29 Feb, 2014 [facility] [address] [id number] [address] [place] [address], [place] [address] 23 Feb, 2014 [facility] [address] [id number] [address] [place] [address], [place] [address] 23 Feb, 2014 [facility] [address] [id number] [address] [place] [address], [place] [address] 08 Feb, 2014 [facility] [address] [id number] [address] [place] [address], [place] [address] 08 Feb, 2014 [facility] [address] [id number] [address] [place] [address], [place] [address] Jan, [facility] [address] [id number] [address] [place] [address], [place] [address] Jan, [facility] [address] [id number] [address] [place] [address], [place] [address] Jan, [facility] [address] [id number] [address] [place] [address], [place] [address] Dec, [facility] [address] [id number] [address] [place] [address], [place] [address] Dec, [facility] [address] [id number] [address] [place] [address], [place] [address] Dec, [facility] [address] [id number] [address] [place] [address], [place] [address] Dec, [facility] [address] [id number] [address] [place] [address], [place] [address] Sep, [facility] [address] [id number] [address] [place] [address], [place] [address] Sep, [facility] [address] [id number] [address] [place] [address], [place] [address] Sep, [facility] [address] [id number] [address] [place] [address], [place] [address] Sep, [facility] [address] [id number] [address] [place] [address], [place] [address] Sep, [facility] [address] [id number] [address] [place] [address], [place] [address] Sep, [facility] [address] [id number] [address] [place] [address], [place] [address] Sep, [facility] [address] [id number] [address] [place] [address], [place] [address] Sep, [facility] [address] [id number] [address] [place] [address], [place] [address] Aug, [facility] [address] [id number] [address] [place] [address], [place] [address] Aug, [facility] [address] [id number] [address] [place] [address], [place] [address] May, [facility] [address] [id number] [address] [place] [address], [place] [address] May, [facility] [address] [id number] [address] [place] [address], [place] [address] Apr, [facility] [address] [id number] [address] [place] [address], [place] [address] Apr, [facility] [address] [id number] [address] [place] [address], [place] [address] Apr, [facility] [address] [id number] [address] [place] [address], [place] [address] Apr, [facility] [address] [id number] [address] [place] [address], [place] [address] Apr, [facility] [address] [id number] [address] [place] [address], [place] [address] Apr, [facility] [address] [id number] [address] [place] [address], [place] [address] May, [facility] [address] [id number] [address] [place] [address], [place] [address] 18 May, 2012 [facility] [address] [id number] [address] [place] [address], [place] [address] 15 May, 2012 [facility] [address] [id number] [address] [place] [address], [place] [address] 15 May, 2012 [facility] [address] [id number] [address] [place] [address], [place] [address] 13 May, 2012 [facility] [address] [id number] [address] [place] [address], [place] [address] May, [facility] [address] [id number] [address] [place] [address], [place] [address] Apr, [facility] [address] [id number] [address] [place] [address], [place] [address] Apr, [facility] [address] [id number] [address] [place] [address], [place] [address] 08 Apr, 2012 [facility] [address] [id number] [address] [place] [address], [place] [address] 08 Apr, 2012 [facility] [address] [id number] [address] [place] [address], [place] [address] 08 Apr, 2012 [facility] [address] [id number] [address] [place] [address] 08 Apr, 2012 [facility] [address] [id number] [address] [place] [address], [place] [address] Apr, [facility] [address] [id number] [address] [place] [address] Apr, [facility] [address] [id number] [address] [place] [address], [place] [address] Apr, [facility] [address] [id number] [address] [place] [address] Apr, [facility] [address] [id number] [address] [place] [address], [place] [address] Mar, [facility] [address] [id number] [address] [place] [address] Mar, [facility] [address] [id number] [address] [place] [address] Mar, [facility] [address] [id number] [address] [place] [address] Mar, [facility] [address] [id number] [address] [place] [address] Mar, [facility] [address] [id number] [address] [place] [address] Mar, [facility] [address] [id number] [address] [place] [address], [place] [address] Mar, [facility] [address] [id number] [address] [place] [address] Mar, [facility] [address] [id number] [address] [place] [address] Mar, [facility] [address] [id number] [address] [place] [address], [place] [address] 25 Feb, 2012 [facility] [address] [id number] [address] [place] [address], [place] [address] 16 Feb, 2012 [facility] [address] [id number] [address] [place] [address], [place] [address] 11 Feb, 2012 [facility] [address] [id number] [address] [place] [address], [place] [address] 25 Jan, 2012 [facility] [address] [id number] [address] [place] [address], [place] [address] Jan, [facility] [address] [id number] [address] [place] [address], [place] [address] Jan, [facility] [address] [id number] [address] [place] [address], [place] [address] 18 Jan, 2012 [facility] [address] [id number] [address] [place] [address], [place] [address] Jan, [facility] [address] [id number] [address] [place] [address], [place] [address] 17 Jan, 2012 [facility] [address] [id number] [address] [place] [address], [place] [address] 16 Jan, 2012 [facility] [address] [id number] [address] [place] [address], [place] [address] 15 Jan, 2012 [facility] [address] [id number] [address] [place] [address], [place] [address] 15 Jan, 2012 [facility] [address] [id number] [address] [place] [address], [place] [address] Jan, [facility] [address] [id number] [address] [place] [address], [place] [address] Dec, [facility] [address] [id number] [address] [place] [address], [place] [address] Dec, [facility] [address] [id number] [address] [place] [address], [place] [address] Dec, [facility] [address] [id number] [address] [place] [address], [place] [address] 17 Dec, 2011 [facility] [address] [id number] [address] [place] [address], [place] [address] Nov, [facility] [address] [id number] [address] [place] [address], [place] [address] 08 Nov, 2011 [facility] [address] [id number] [address] [place] [address], [place] [address] Nov, [facility] [address] [id number] [address] [place] [address], [place] [address] October, [facility] [address] [id number] [address] [place] [address], [place] [address] October, [facility] [address] [id number] [address] [place] [address], [place] [address] October, [facility] [address] [id number] [address] [place] [address], [place] [address] October, [facility] [address] [id number] [address] [place] [address], [place] [address] October, [facility] [address] [id number] [address] [place] [address], [place] [address] October, [facility] [address] [id number] [address] [place] [address], [place] [address] Aug, [facility] [address] [id number] [address] [place] [address], [place] [address] Mar, [facility] [address] [id number] [address] [place] [address], [place] [address] Nov, [facility] [address] [id number] [address] [place] [address], [place] [address] May, [facility] [address] [id number] [address] [place] [address], [place] [address] May, [facility] [address] [id number] [address] [place] [address] Apr, [facility] [address] [facility] [id number] [address] [place] [address] Mar, [facility] [address] [facility] [id number] [address] [place] [address] Mar, IMMUNIZATIONS No Known Immunizations SOCIAL HISTORY Never Assessed REASON FOR VISIT EMR-[facility] PLAN OF CARE VITAL SIGNS MEDICATIONS Unknown [...]
--- OUTSIDE RECORDS SUMMARY | 2019-06-19 05:19 | XMS REPORT ---
Author Author Sydnie Huston Doctor Organization [facility] Address Unknown Phone Unavailable Care Team Providers Care Stone Rigger Name Role Phone Migration, Doctor Unavailable Unavailable PROBLEMS Type Condition ICD9-CM Code COQ34-FS Code Onset Dates Condition S tatus SNOMED Code Problem Age-related osteoporosis without current pathological fracture M81.0 Active 03323731 Problem Sensorineural hearing loss (SNHL) of both ears H90 .3 Active 416231901 Problem Abnormal CT scan, head R93.0 Active 708890182 Problem Arthralgia of hip, unspecified laterality M25.559 Active 20200362 Problem Bruising, spontaneous R23.3 Active 982812491 Problem Hypertension I10 Active 4883688 3 Problem Night sweats R61 Active 0650868 0 Problem Imbalance R26.89 Active 853414913 Problem Hammer toe of right foot M20.41 Activ e 914732358 Problem Hormone replacement therapy Z79.890 Ac tive 152971059 Problem Bipolar 1 disorder, mixed F31.60 Acti ve 65086009 Problem Gastritis without bleeding, unspecified chronicity, unspecified gastritis type K29.70 Active 184447144 Problem Ataxia R27.0 Active 08853724 Problem Hearing loss, unspecified laterality H91.90 Active 33220606 Problem History of colon polyps Z86.010 Active 759914358 Problem Allergic rhinitis J30.9 Active 61 198759 Problem Hematuria, unspecified type R31.9 Ac tive 70768681 Problem Generalized anxiety disorder F41.1 A ctive 21203417 Problem Major depressive disorder, recurrent episode, moderate F33.1 Active 124694765 Problem Fibromyalgia M79.7 Active 6403830 7 Problem Bladder spasm N32.89 Active 703241 006 Problem Tobacco use disorder F17.200 Active 833124705 Problem Other chronic pain G89.29 Active 8 8363017 Problem Post menopausal syndrome N95.1 Activ e 376381450 Problem Grief F43.20 Active 01471170 Problem Hyperlipidemia, unspecified hyperlipidemia type E7 8.5 Active 37343861 Problem Acute left-sided low back pain with left-sided sciatica M54.42 Active 073570431 Problem Sciatica of left side M54.32 Active 44765753 Problem Plantar wart of right foot B07.0 Act mitchell [id number] Problem Slow transit constipation K59.01 Acti ve [id number] ALLERGIES No Information ENCOUNTERS Encounter Location Date Diagnosis [facility] [address] [id number] [address] [place] [id number] Nov, [facility] [address] [id number] [address] [place] [address] Nov, [facility] [address] [id number] [address] [place] [id number] Nov, [facility] [address] [id number] [address] [place] [id number] October, [facility] [address] [id number] [address] [place] [address] October, [facility] [address] [id number] [address] [place] [address] October, Bipolar 1 disorder, mixed F3 1.60 [facility] [address] [id number] [address] [place] [address] October, [facility] [address] [id number] [address] [place] [id number] October, Bipolar 1 disorder, mixed F3 1.60 ; Generalized anxiety disorder F41.1 and Tobacco use disorder F17.200 [facility] [address] [id number] [address] [place] [id number] Sep, [facility] [address] [id number] [address] [place] [address] Sep, Encounter for Medicare annua l wellness exam Z00.00 ; Major depressive disorder, recurrent episode, moderate F33.1 ; Allergic rhinitis J30.9 ; Bipolar 1 disorder, mixed F31.60 ; Fibromyalgia M79.7 ; Hyperlipidemia, unspecified hyperlipidemia type E78.5 ; Hormone replacement therapy Z79.890 ; Encounter for screening for lung cancer Z12.2 and Tobacco use disorder F17.200 [facility] [address] [place] [id number] [address] [place] [id number] 23 Sep, 2018 Bipolar 1 disorder, mixed F3 1.60 [facility] [address] [place] [id number] [address] [place] [address] Sep, Other chronic pain G89.29 ; Hyperlipidemia, unspecified hyperlipidemia type E78.5 ; Breast cancer screening Z12.31 and Post menopausal syndrome N95.1 [facility] [address] [place] [id number] [address] [place] [id number] 16 Sep, 2018 Bipolar 1 disorder, mixed F3 1.60 [facility] [address] [place] [id number] [place] [address] Sep, Bipolar 1 disorder, mixed F3 1.60 ; Generalized anxiety disorder F41.1 and Tobacco use disorder F17.200 [facility] [address] [place] [address] Sep, Gastritis without bleeding, unspecified chronicity, unspecified gastritis type K29.70 [facility] [address] [place] [id number] [address] [place] [address] 08 Sep, 2018 Exercise counseling Z71.82 [facility] [address] [place] [id number] [address] [place] [address] Aug, Exercise counseling Z71.82 [facility] [address] [place] [address] Aug, Bipolar 1 disorder, mixed F3 1.60 [facility] [address] [place] [id number] [address] [place] [id number] Aug, Exercise counseling Z71.82 [facility] [address] [place] [id number] [address] [place] [address] Aug, Bipolar 1 disorder, mixed F3 1.60 [facility] [address] [place] [id number] [address] [place] [address] Aug, Gastritis without bleeding, unspecified chronicity, unspecified gastritis type K29.70 ; Tobacco abuse Z72.0 ; Generalized anxiety disorder F41.1 and Weight gain R63.5 [facility] [address] [place] [id number] [address] [place] [address] Aug, Bipolar 1 disorder, mixed F3 1.60 ; Generalized anxiety disorder F41.1 and Tobacco use disorder F17.200 [facility] [address] [place] [id number] [address] [place] [address] Jul, Bipolar 1 disorder, mixed F3 1.60 [facility] [address] [place] [id number] [address] [place] [id number] Jul, [facility] [address] [place] [id number] [address] [place], [place] [address] Jul, Bipolar 1 disorder, mixed F3 1.60 [facility] [address] [place] [id number] [address] [place] [address] Jul, Allergic rhinitis J30.9 ; Ma darion depressive disorder, recurrent episode, moderate F33.1 and Tobacco 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 [facility] [address] [place] [id number] [address] [place] [address] Jun, [facility] [address] [place] [id number] [address] [place] [address] Jun, [facility] [facility] [address] [place] [id number] [address] [place] [address] Jun, Bipolar 1 disorder, mixed F3 1.60 [facility] [address] [place] [id number] [address] [place] [address] Jun, Bipolar 1 disorder, mixed F3 1.60 [facility] [address] [place] [id number] [address] [place] [address] Jun, Bipolar 1 disorder, mixed F3 1.60 [place] [id number] [place] [id number] [address] [place] [address] Jun, Generalized anxiety disorder F41.1 ; Tobacco abuse Z72.0 and Major depressive disorder, recurrent episode, moderate F33.1 [facility] [address] [place] [place] [id number] [address] [place] [address] May, Bipolar 1 disorder, mixed F3 1.60 [facility] [address] [place] [id number] [address] [place] [address] May, Bipolar 1 disorder, mixed F3 1.60 and Generalized anxiety disorder F41.1 [facility] [address] [place] [id number] [address] [place] [address] May, Bipolar 1 disorder, mixed F3 1.60 [facility] [address] [place] [id number] [place] [address] May, Allergic rhinitis J30.9 [facility] [facility] [address] [place] [id number] [place] [address] May, Bipolar 1 disorder, mixed F3 1.60 [facility] [address] [address] May, [facility] [address] [place] [id number] [place] [address] Apr, Allergic rhinitis J30.9 ; Dy sfunction of both eustachian tubes H69.83 ; History of bladder surgery Z98.890 and Cervicalgia M54.2 [facility] [address] [place] [id number] [address] [place] [id number] Mar, Bipolar 1 disorder, mixed F3 1.60 [facility] [address] [place] [id number] [address] [place] [address] Mar, [facility] [address] [place] [id number] [place] [address] Mar, Slow transit constipation K5 9.01 ; Encounter for immunization Z23 and Generalized anxiety disorder F41.1 [facility] [address] [place] [id number] [address] [place] [address] Feb, Bipolar 1 disorder, mixed F3 1.60 [facility] [address] [id number] [address] [place] [id number] 26 Feb, 2018 Allergic rhinitis J30.9 [facility] [address] [id number] [address] [place] [id number] 24 Feb, 2018 Bipolar 1 disorder, mixed F3 1.60 [facility] [address] [id number] [address] [place] [id number] 20 Feb, 2018 Bipolar 1 disorder, mixed F3 1.60 and Generalized anxiety disorder F41.1 [facility] [address] [id number] [address] [place] [address] 13 Feb, 2018 Bipolar 1 disorder, mixed F3 1.60 [facility] [address] [id number] [address] [place] [id number] 11 Feb, 2018 Allergic rhinitis J30.9 [facility] [address] [id number] [address] [place] [id number] 05 Feb, 2018 [facility] [address] [id number] [address] [place] [address] Jan, Bipolar 1 disorder, mixed F3 1.60 [facility] [address] [id number] [address] [place] [address] Jan, Low back pain M54.5 ; Hyperl ipidemia, unspecified hyperlipidemia type E78.5 and Bipolar 1 disorder, mixed F31.60 [facility] [address] [id number] [address] [place] [id number] Jan, Bipolar 1 disorder, mixed F3 1.60 [facility] [address] [id number] [address] [place] [address] Jan, Bipolar 1 disorder, mixed F3 1.60 [facility] [address] [id number] [address] [place] [address] Jan, Bipolar 1 disorder, mixed F3 1.60 [facility] [address] [id number] [address] [place] [address] Jan, Bipolar 1 disorder, mixed F3 1.60 [facility] [address] [id number] [address] [place] [address] Dec, Bipolar 1 disorder, mixed F3 1.60 ; Generalized anxiety disorder F41.1 and 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 [facility] [address] [id number] [address] [place] [address] Dec, Other termite renewal inspector (current) dr ug therapy Z79.899 [facility] [address] [id number] [address] [place], [place] [address] Dec, Bipolar 1 disorder, mixed F3 1.60 [facility] [address] [id number] [address] [place] [address] Dec, Bipolar 1 disorder, mixed F3 1.60 [facility] [address] [place] [id number] [address] [place] [id number] Nov, Bipolar 1 disorder, mixed F3 1.60 [facility] [address] [id number] [address] [place] [address] Nov, Bipolar 1 disorder, mixed F3 1.60 [facility] [address] [id number] [address] [place] [id number] Nov, Bipolar 1 disorder, mixed F3 1.60 [facility] [address] [place] [id number] [address] [place] [id number] Nov, Allergic rhinitis J30.9 [facility] [address] [id number] [address] [place] [address] Nov, Allergic rhinitis J30.9 [facility] [address] [id number] [address] [place] [id number] Nov, [facility] [address] [id number] [address] [place] [address] Nov, Bipolar 1 disorder, mixed F3 1.60 [facility] [address] [id number] [address] [place] [address] Nov, Fibromyalgia M79.7 and Aller gic rhinitis J30.9 [facility] [address] [id number] [address] [place] [address] October, Bipolar 1 disorder, mixed F3 1.60 [facility] [address] [id number] [address] [place] [id number] October, Acute nasopharyngitis J00 [facility] [address] [place] [id number] [address] [place] [address] October, Bitten or stung by nonvenomo us insect and other nonvenomous arthropods, initial encounter W57.XXXA and Insect bite (nonvenomous) of abdominal wall, initial encounter S30.861A [facility] [address] [id number] [address] [place] [address] October, Insect bite (nonvenomous) of abdominal wall, initial encounter S30.861A ; Bitten or stung by nonvenomous insect and other nonvenomous arthropods, initial encounter W57.XXXA ; Allergic rhinitis J30.9 and Low back pain M54.5 [facility] [address] [place] [id number] [address] [place] [id number] October, Bipolar 1 disorder, mixed F3 1.60 [facility] [address] [place] [id number] [address] [place] [id number] October, [facility] [address] [place] [id number] [address] [place] [address] October, [facility] [address] [place] [id number] [address] [place] [address] October, Bipolar 1 disorder, mixed F3 1.60 [facility] [address] [place] [id number] [address] [place] [address] Sep, Bipolar 1 disorder, mixed F3 1.60 [facility] [address] [place] [id number] [address] [place] [address] Sep, Other chronic pain G89.29 [facility] [address] [id number] [address] [place] [address] Sep, [facility] [address] [id number] [address] [place] [address] Sep, Bipolar 1 disorder, mixed F3 1.60 [facility] [address] [id number] [address] [place] [address] Sep, Allergic rhinitis J30.9 and Sciatica of left side M54.32 [facility] [address] [id number] [address] [place] [id number] Sep, Bipolar 1 disorder, mixed F3 1.60 [facility] [address] [id number] [address] [place] [id number] Sep, Bipolar 1 disorder, mixed F3 1.60 and Generalized anxiety disorder F41.1 [facility] [address] [id number] [address] [place] [address] Aug, [facility] [address] [id number] [address] [place] [id number] Aug, Bipolar 1 disorder, mixed F3 1.60 [facility] [address] [id number] [address] [place] [address] Aug, Bipolar 1 disorder, mixed F3 1.60 [facility] [address] [id number] [address] [place] [id number] Aug, [facility] [address] [id number] [address] [place] [phone] Aug, Generalized anxiety disorder F41.1 [facility] [address] [id number] [address] [place] [address] Aug, Bipolar 1 disorder, mixed F3 1.60 [facility] [address] [id number] [address] [place] [address] Aug, Plantar wart of right foot B 07.0 [facility] [address] [id number] [address] [place] [address] Aug, Bipolar 1 disorder, mixed F3 1.60 [facility] [address] [id number] [address] [place] [id number] Jul, Bipolar 1 disorder, mixed F3 1.60 [facility] [address] [id number] [address] [place] [address] Jul, [facility] [address] [id number] [address] [place] [address] Jul, Bipolar 1 disorder, mixed F3 1.60 [facility] [address] [id number] [address] [place] [id number] 09 Jul, 2017 Generalized anxiety disorder F41.1 [facility] [address] [id number] [address] [place] [id number] 07 Jul, 2017 Bipolar 1 disorder, mixed F3 1.60 [facility] [address] [place] [id number] [address] [place] [id number] 07 Jul, 2017 Acute left-sided low back pa in with left-sided sciatica M54.42 [facility] [address] [id number] [address] [place] [id number] 05 Jul, 2017 Coccydynia M53.3 [facility] [address] [id number] [address] [place] [address] Jun, Bipolar 1 disorder, mixed F3 1.60 [facility] [address] [id number] [address] [place] [address] Jun, Acute nasopharyngitis J00 [facility] [address] [id number] [address] [place] [id number] Jun, Bipolar 1 disorder, mixed F3 1.60 [facility] [address] [id number] [address] [place] [address] Jun, Fibromyalgia M79.7 [facility] [address] [id number] [address] [place] [address] Jun, Bipolar 1 disorder, mixed F3 1.60 [facility] [id number] [place] [address] Jun, Fibromyalgia M79.7 and Bipol ar 1 disorder, mixed F31.60 [facility] [address] [place] [id number] [address] [place] [id number] May, Bipolar 1 disorder, mixed F3 1.60 ; Generalized anxiety disorder F41.1 and 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 [place] [address] [address] May, Bipolar 1 disorder, mixed F3 1.60 [facility] [address] [address] 14 May, 2017 Cough R05 and Body aches R52 [facility] [address] [address] 10 May, 2017 Bladder spasm N32.89 and Acu te cystitis without hematuria N30.00 [place] [address] [address] 07 May, 2017 Bipolar 1 disorder, mixed F3 1.60 [place] [address] [address] Apr, [place] [address] [address] Apr, Major depressive disorder, r ecurrent episode, moderate F33.1 and Encounter for immunization Z23 [facility] [address] [place] [id number] [address] [place] [address] Apr, Bipolar 1 disorder, mixed F3 1.60 [place] [address] [place] [id number] [address] [place] [address] Apr, Bipolar 1 disorder, mixed F3 1.60 [place] [address] [place] [id number] [address] [place] [address] Apr, Bipolar 1 disorder, mixed F3 1.60 [facility] [address] [place] [id number] [address] [place] [address] 13 Apr, 2017 Yeast vaginitis B37.3 [facility] [address] [place] [id number] [address] [place] [address] 09 Apr, 2017 Bipolar 1 disorder, mixed F3 1.60 [facility] [address] [place] [id number] [address] [place] [id number] 07 Apr, 2017 [address]ulitis L03.[address] for immunization Z23 [facility] [address] [place] [id number] [place] [address] Apr, Bipolar 1 disorder, mixed F3 1.60 [facility] [address] Mar, Bipolar 1 disorder, mixed F3 1.60 [place] [address] [place] [address] Mar, Bipolar 1 disorder, mixed F3 1.60 [facility] [address] [address] Mar, Imbalance R26.89 and Encount er for immunization Z23 [facility] [address] [place] [id number] [address] [place] [address] Mar, Generalized anxiety disorder F41.1 [facility] [address] [place] [id number] [address] [place] [address] Mar, Bipolar 1 disorder, mixed F3 1.60 [facility] [address] [place] [id number] [address] [place] [address] Mar, Generalized anxiety disorder F41.1 [facility] [address] [place] [id number] [place] [address] Mar, Bipolar 1 disorder, mixed F3 1.60 [facility] [address] [place] [id number] [address] [place] [address] Mar, Bipolar 1 disorder, mixed F3 1.60 [facility] [address] [place] [id number] [address] [place] [address] 27 Feb, 2017 Bipolar 1 disorder, mixed F3 1.60 [place] [address] [place] [id number] [address] [place] [address] 25 Feb, 2017 Bipolar 1 disorder, mixed F3 1.60 and Generalized anxiety disorder F41.1 [place] [address] [address] Feb, Gastritis without bleeding, unspecified chronicity, unspecified gastritis type K29.70 ; Hammer toe of right foot M20.41 and Other viral warts B07.8 [place] [address] [place] [id number] [place] [address] 20 Feb, 2017 Bipolar 1 disorder, mixed F3 1.60 [place] [address] [address] Feb, Bipolar 1 disorder, mixed F3 1.60 [place] [address] [place] [id number] [address] [place] [address] 05 Feb, 2017 Bipolar 1 disorder, mixed F3 1.60 [place] [address] [address] 31 Jan, 2017 Encounter for screening mamm ogram for breast cancer Z12.31 ; Other viral warts B07.8 and Allergic rhinitis J30.9 [place] [address] [place] [address] Jan, Bipolar 1 disorder, mixed F3 1.60 [facility] [address] [place] [id number] [address] [place] [address] Jan, Bipolar 1 disorder, mixed F3 1.60 [facility] [address] [place] [id number] [address] [place] [address] Jan, [place] [address] [place] [id number] [address] [place] [address] Jan, Bipolar 1 disorder, mixed F3 1.60 [place] [address] [place] [id number] [address] [place] [address] Jan, Bipolar 1 disorder, mixed F3 1.60 [place] [address] [address] Jan, Allergic rhinitis J30.9 ; He maturia R31.9 and Colon cancer screening Z12.11 [place] [address] [address] Dec, Bipolar 1 disorder, mixed F3 1.60 [place] [address] [address] Dec, Bipolar 1 disorder, mixed F3 1.60 ; Generalized anxiety disorder F41.1 and 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 [place] [address] [address] Dec, Bipolar 1 disorder, mixed F3 1.60 [place] [address] [address] Dec, Bipolar 1 disorder, mixed F3 1.60 [place] [address] [address] Dec, Bipolar 1 disorder, mixed F3 1.60 [place] [address] [address] Dec, Low back pain M54.5 and Recu rrent urinary tract infection N39.0 [place] [address] [place] [id number] [address] [place] [phone] Nov, Bipolar 1 disorder, mixed F3 1.60 [place] [address] [address] Nov, Bipolar 1 disorder, mixed F3 1.60 [place] [address] [address] Nov, Bipolar 1 disorder, mixed F3 1.60 [place] [address] [address] Nov, Bipolar 1 disorder, mixed F3 1.60 [place] [address] [address] Nov, [place] [address] [address] Nov, Anesthesia of skin R20.0 ; F requent UTI N39.0 ; Tobacco abuse Z72.0 and Colon cancer screening Z12.11 [place] [address] [address] Nov, Bipolar 1 disorder, mixed F3 1.60 [place] [address] [place] [id number] October, Bipolar 1 disorder, mixed F3 1.60 [place] [address] [address] October, Bipolar 1 disorder, mixed F3 1.60 [place] [place] [address] [address] October, Bipolar 1 disorder, mixed F3 1.60 [place] [address] [address] October, Bipolar 1 disorder, mixed F3 1.60 [place] [address] [address] October, Bipolar 1 disorder, mixed F3 1.60 [place] [address] [address] October, Cervicalgia M54.2 and Bipola r 1 disorder, mixed F31.60 [place] [address] [address] October, Hypertension I10 ; Hyperlipi demia, unspecified hyperlipidemia type E78.5 and Family history of thyroid disease Z83.49 [place] [address] [address] October, [place] [address] [address] October, Hypertension I10 ; Hyperlipi demia, unspecified hyperlipidemia type E78.5 and Family history of thyroid problem Z83.49 [place] [address] [place] [address] October, Bipolar 1 disorder, mixed F3 1.60 [place] [address] [place] [id number] [address] [place] [address] Sep, Bipolar 1 disorder, mixed F3 1.60 [place] [address] [address] Sep, Bipolar 1 disorder, mixed F3 1.60 [place] [address] [address] Sep, Bipolar 1 disorder, mixed F3 1.60 [place] [address] [place] [id number] [address] [place] [address] Sep, History of colon polyps Z86. 010 and Hematochezia K92.1 [place] [address] [place] [id number] [address] [place] [address] Sep, Major depressive disorder, r ecurrent episode, moderate F33.1 [place] [address] [place] [address] Sep, Bipolar 1 disorder, mixed F3 1.60 [place] [address] [place] [id number] [address] [place] [address] Aug, Hot flashes due to menopause N95.1 [place] [address] [place] [id number] [address] [place] [address] Aug, Bipolar 1 disorder, mixed F3 1.60 [place] [address] [place] [id number] [address] [place] [address] Aug, [place] [address] [address] Aug, Bipolar 1 disorder, mixed F3 1.60 [place] [address] [place] [id number] Aug, Bipolar 1 disorder, mixed F3 1.60 [place] [address] [address] Aug, Hot flashes due to menopause N95.1 ; Cervicalgia M54.2 and Ataxia R27.0 [place] [address] [address] Jul, Bipolar 1 disorder, mixed F3 1.60 [place] [address] [place] [id number] Jul, Bipolar 1 disorder, mixed F3 1.60 [place] [address] [address] Jul, Bipolar 1 disorder, mixed F3 1.60 [place] [address] [address] Jul, Bipolar 1 disorder, mixed F3 1.60 [place] [address] [address] Jul, Bipolar 1 disorder, mixed F3 1.60 [place] [address] [address] Jul, Cervicalgia M54.2 ; Tremor R 25.1 ; Hearing abnormally acute, unspecified laterality H93.239 ; Alopecia L65.9 ; Encounter for immunization Z23 and Family history of thyroid disease Z83.49 [place] [address] [address] Jul, Bipolar 1 disorder, mixed F3 1.60 [place] [address] [address] Jun, [place] [address] [place] [id number] [address] [place] [address] Jun, Hearing disorder, unspecifie d laterality H93.299 [facility] [address] [id number] [address] [place] [address] Jun, Bipolar 1 disorder, mixed F3 1.60 [facility] [address] [id number] [address] [place] [address] Jun, Bipolar 1 disorder, mixed F3 1.60 [facility] [address] [id number] [address] [place] [address] Jun, Allergic rhinitis J30.9 [facility] [address] [id number] [address] [place] [address] Jun, Bipolar 1 disorder, mixed F3 1.60 [facility] [address] [id number] [address] [place] [address] Jun, Bipolar 1 disorder, mixed F3 1.60 [facility] [address] [id number] [address] [place] [address] Jun, Allergic rhinitis J30.9 [facility] [address] [id number] [address] [place] [address] Jun, Allergic rhinitis J30.9 [facility] [address] [id number] [address] [place] [address] Jun, Bipolar 1 disorder, mixed F3 1.60 [facility] [address] [id number] [address] [place] [address] May, Bipolar 1 disorder, mixed F3 1.60 [facility] [address] [id number] [address] [place] [address] May, Bipolar 1 disorder, mixed F3 1.60 [facility] [address] [id number] [address] [place] [address] May, [facility] [address] [id number] [address] [place] [address] May, Bipolar 1 disorder, mixed F3 1.60 [facility] [address] [id number] [address] [place] [address] May, Bipolar 1 disorder, mixed F3 1.60 [facility] [address] [id number] [address] [place] [address] May, [facility] [address] [id number] [address] [place] [address] May, [facility] [address] [id number] [address] [place] [address] May, [facility] [address] [id number] [address] [place] [id number] May, Abdominal pain, unspecified location R10.9 [facility] [address] [id number] [address] [place] [address] May, [facility] [address] [place] [id number] [place] [address] Apr, Hematuria R31.9 ; Ataxia R27 .0 and Hearing loss, unspecified laterality H91.90 [facility] [address] [place] [id number] [address] [place] [address] Apr, Bipolar 1 disorder, mixed F3 1.60 [facility] [address] [id number] [address] [place] [address] Apr, Acute effusion of both middl e ears H65.193 [facility] [address] [id number] [address] [place] [address] Apr, Hematuria R31.9 and Pyelonep hritis N12 [facility] [address] [id number] [address] [place] [address] Apr, [facility] [address] [id number] [address] [place] [address] Mar, Bipolar 1 disorder, mixed F3 1.60 [facility] [address] [place] [id number] [address] [place] [address] Mar, [place] [address] [place] [id number] [address] [place], [place] [address] Mar, Bipolar 1 disorder, mixed F3 1.60 [place] [address] [place] [id number] [address] [place] [address] Mar, Bipolar 1 disorder, mixed F3 1.60 [place] [address] [place] [id number] [address] [place] [id number] Mar, Encounter for immunization Z 23 and Gastritis without bleeding, unspecified chronicity, unspecified gastritis type K29.70 [place] [address] [place] [id number] [address] [place] [id number] Mar, Bipolar 1 disorder, mixed F3 1.60 and Grief F43.20 [place] [address] [place] [id number] [address] [place] [address] Mar, Gastritis without bleeding, unspecified chronicity, unspecified gastritis type K29.70 [place] [address] [place] [id number] [address] [place] [address] Mar, Bipolar 1 disorder, mixed F3 1.60 [place] [address] [place] [id number] [place], [place] [id number] Mar, Gastritis without bleeding, unspecified chronicity, unspecified gastritis type K29.70 [place] [address] [place] [id number] [address] [place] [address] Mar, [place] [address] [place] [id number] [place] [address] Feb, Bipolar 1 disorder, mixed F3 1.60 [place] [address] [place] [id number] [place], [place] [address] Feb, Bipolar 1 disorder, mixed F3 1.60 and Grief F43.20 [place] [address] [place] [id number] [address] [place] [address] Feb, Gastritis without bleeding, unspecified chronicity, unspecified gastritis type K29.70 [facility] [address] [place] [id number] [address] [place] [address] Feb, Bipolar 1 disorder, mixed F3 1.60 [facility] [address] [place] [id number] [address] [place] [id number] Feb, Gastroesophageal reflux dise ase, esophagitis presence not specified K21.9 [facility] [address] Jan, Bipolar 1 disorder, mixed F3 1.60 [facility] [address] Jan, Bipolar 1 disorder, mixed F3 1.60 and Unsteady gait R26.81 [place] [address] [address] Jan, Bipolar 1 disorder, mixed F3 1.60 [facility] [address] Jan, Bipolar 1 disorder, mixed F3 1.60 and 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 [place] [address] [place] [address] Jan, Bipolar 1 disorder, mixed F3 1.60 [place] [address] [address] Jan, Bipolar 1 disorder, mixed F3 1.60 [facility] [address] Jan, Bipolar 1 disorder, mixed F3 1.60 ; Grief F43.20 and 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 [place] [address] [place] [address] Jan, Bipolar 1 disorder, mixed F3 1.60 [place] [address] [place] [id number] Dec, [place] [address] [place] [address] Dec, Bipolar 1 disorder, mixed F3 1.60 ; Vitamin D deficiency, unspecified E55.9 ; H/O allergic rhinitis Z87.09 ; Other chronic pain G89.29 and Dorsalgia, unspecified M54.9 [facility] [address] [place] [id number] [address] [place] [address] Dec, [facility] [address] [place] [id number] [address] [place] [address] Dec, Bipolar 1 disorder, mixed F3 1.60 [place] [address] [address] Dec, Major depressive disorder, r ecurrent episode, moderate F33.1 [place] [address] [address] Dec, Major depressive disorder, r ecurrent episode, moderate F33.1 [place] [id number] [place] [address] Nov, [place] [address] [address] Nov, Bipolar 1 disorder, mixed F3 1.60 [place] [address] [place] [id number] [address] [place] [address] Nov, Major depressive disorder, r ecurrent episode, moderate F33.1 [place] [address] [place] [id number] [address] [place] [address] Nov, Cervicalgia M54.2 ; Arthralg ia of hip, unspecified laterality M25.559 ; Allergic rhinitis J30.9 and Hormone replacement therapy Z79.890 [facility] [address] [place] [id number] [address] [place] [address] Nov, Other seasonal allergic rhin itis J30.2 [facility] [address] [place] [id number] [address] [place] [address] October, Major depressive disorder, r ecurrent episode, moderate F33.1 [place] [id number] [id number] [address] [place] [address] October, Major depressive disorder, r ecurrent episode, moderate F33.1 and Arthralgia of hip, unspecified laterality M25.559 [place] [address] [id number] [address] [place] [address] October, Grief F43.20 ; Hypertension I10 ; Hyperlipidemia, unspecified hyperlipidemia type E78.5 ; Other chronic pain G89.29 and Allergic rhinitis, unspecified allergic rhinitis type J30.9 [place] [address] [id number] [address] [place] [address] October, Major depressive disorder, r ecurrent episode, moderate F33.1 [place] [address] [id number] [address] [place] [address] Sep, Major depressive disorder, r ecurrent episode, moderate F33.1 [place] [address] [id number] [address] [place] [address] Sep, [place] [address] [id number] [address] [place] [address] Sep, Major depressive disorder, r ecurrent episode, moderate F33.1 [place] [address] [id number] [address] [place] [address] Sep, Grief F43.20 [place] [address] [id number] [address] [place] [address] Aug, Major depressive disorder, r ecurrent episode, moderate F33.1 [place] [address] [id number] [address] [place] [address] Aug, Bipolar 1 disorder, mixed F3 1.60 [place] [address] [id number] [address] [place] [address] Aug, Allergic rhinitis J30.9 ; Ce rvicalgia M54.2 and Low back pain M54.5 [facility] [address] [id number] [address] [place] [address] Aug, Major depressive disorder, r ecurrent episode, moderate F33.1 [facility] [address] [id number] [address] [place] [address] Aug, Sinusitis J32.9 and Tobacco 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 [facility] [address] [place] [id number] [address] [place] [address] Aug, [facility] [address] [place] [id number] [place] [address] Aug, Depressive disorder, not els ewhere classified F32.9 ; Hormone replacement therapy Z79.[address] scan, head R93.0 [facility] [address] [place] [id number] [address] [place] [address] Aug, Major depressive disorder, r ecurrent episode, moderate F33.1 [facility] [address] [place] [id number] [address] [place] [address] Jul, Major depressive disorder, r ecurrent episode, moderate F33.1 [facility] [address] [id number] [address] [place] [address] Jul, Abdominal pain R10.9 and Hyp ertension I10 [facility] [address] [id number] [address] [place] [address] Jul, [facility] [address] [place] [id number] [address] [place] [address] Jul, Major depressive disorder, r ecurrent episode, moderate F33.1 [facility] [address] [place] [id number] [address] [place] [address] Jul, [facility] [address] [id number] [address] [place] [address] Jul, [facility] [address] [place] [id number] [address] [place] [address] Jun, [facility] [address] [id number] [address] [place] [address] Jun, Depressive disorder, not els ewhere classified F32.9 [facility] [address] [id number] [address] [place] [address] Jun, [facility] [address] [id number] [address] [place] [address] Jun, [facility] [address] [id number] [address] [place] [address] Jun, Arthralgia of hip, unspecifi ed laterality M25.559 ; Bruising, spontaneous R23.3 and Night sweats R61 [facility] [address] [id number] [address] [place] [address] Jun, [facility] [address] [id number] [address] [place] [address] Jun, [facility] [address] [id number] [address] [place] [address] May, [facility] [address] [id number] [address] [place] [address] May, Myalgia M79.1 and Screening, lipid Z13.220 [facility] [address] [id number] [address] [place] [address] Apr, Status post cervical spinal fusion Z98.1 ; Fibromyalgia M79.7 and Unsteady gait R26.81 [facility] [address] [id number] [address] [place] [address] Nov, [facility] [address] [id number] [address] [place] [address] Nov, [facility] [address] [id number] [address] [place] [address] October, [facility] [address] [id number] [address] [place] [address] October, [facility] [address] [id number] [address] [place] [address], [place] [address] October, [facility] [address] [id number] [address] [place] [address], [place] [address] October, [facility] [address] [id number] [address] [place] [address], [place] [address] October, [facility] [address] [id number] [address] [place] [address], [place] [address] October, Dysuria 788.1 ; Nausea 787.0 2 and Urinary tract infection 599.0 [facility] [address] [id number] [address] [place] [address], [place] [address] Sep, [facility] [address] [id number] [address] [place] [address] Sep, [facility] [address] [id number] [address] [place] [address], [place] [address] Aug, [facility] [address] [id number] [address] [place] [address] Aug, [facility] [address] [id number] [address] [place] [address], [place] [address] Aug, [facility] [address] [id number] [address] [place] [address] Aug, [facility] [address] [id number] [address] [place] [address], [place] [address] Aug, [facility] [address] [id number] [address] [place] [id number] Aug, [facility] [address] [id number] [address] [place] [address], [place] [address] Aug, [facility] [address] [id number] [address] [place] [address] Aug, [facility] [address] [id number] [address] [place] [id number] 19 Aug, 2014 [facility] [address] [id number] [facility] [place] [address] 18 Aug, 2014 [facility] [address] [id number] [address] [place] [address], [place] [address] 18 Aug, 2014 [facility] [address] [id number] [address] [place] [address], [place] [address] 13 Aug, 2014 [facility] [address] [id number] [address] [place] [address], [place] [address] 13 Aug, 2014 [facility] [address] [id number] [address] [place] [address], [place] [address] Aug, [facility] [address] [id number] [address] [place] [address], [place] [address] Aug, [facility] [address] [id number] [address] [place] [address], [place] [address] 06 Aug, 2014 [facility] [address] [id number] [address] [place] [address], [place] [address] 06 Aug, 2014 [facility] [address] [id number] [address] [place] [address], [place] [address] 05 Aug, 2014 [facility] [address] [id number] [address] [place] [address], [place] [address] 05 Aug, 2014 [facility] [address] [id number] [address] [place] [address], [place] [address] Aug, [facility] [address] [id number] [address] [place] [address], [place] [address] Aug, [facility] [address] [id number] [address] [place] [address], [place] [address] Aug, [facility] [address] [id number] [address] [place] [address], [place] [address] Jul, [facility] [address] [id number] [address] [place] [address], [place] [address] Jul, [facility] [address] [id number] [address] [place] [address], [place] [address] Jul, 2014 [facility] [address] [id number] [address] [place] [address], [place] [address] Jul, 2014 [facility] [address] [id number] [address] [place] [address], [place] [address] Jul, 2014 [facility] [address] [id number] [address] [place] [address], [place] [address] Jul, 2014 [facility] [address] [id number] [address] [place] [address], [place] [address] Jul, 2014 [facility] [address] [id number] [address] [place] [address], [place] [address] Jul, 2014 [facility] [address] [id number] [address] [place] [address], [place] [address] Jul, [facility] [address] [id number] [address] [place] [address], [place] [address] Jul, [facility] [address] [id number] [address] [place] [address], [place] [id number] Jul, [facility] [address] [id number] [address] [place] [address], [place] [address] Jul, [facility] [address] [id number] [address] [place] [address], [place] [address] Jul, [facility] [address] [id number] [address] [place] [id number] Jul, [facility] [address] [id number] [address] [place] [address], [place] [address] Jun, [facility] [address] [id number] [address] [place] [id number] Jun, [facility] [address] [id number] [address] [place] [id number] Jun, [facility] [address] [id number] [address] [place] [id number] Jun, [facility] [address] [id number] [address] [place] [address], [place] [address] Jun, [facility] [address] [id number] [address] [place] [address], [place] [address] Jun, [facility] [address] [id number] [address] [place] [address], [place] [id number] May, [facility] [address] [id number] [address] [place] [address], [place] [address] May, [facility] [address] [id number] [address] [place] [address], [place] [id number] May, [facility] [address] [id number] [address] [place] [address], [place] [id number] May, [facility] [address] [id number] [address] [place] [address], [place] [address] May, [facility] [address] [id number] [address] [place] [address], [place] [address] May, [facility] [address] [id number] [address] [place] [address], [place] [address] Apr, [facility] [address] [id number] [address] [place] [address], [place] [address] Apr, [facility] [address] [id number] [address] [place] [address], [place] [address] Apr, [facility] [address] [id number] [address] [place] [address], [place] [address] Apr, [facility] [address] [id number] [address] [place] [address], [place] [address] Apr, [facility] [address] [id number] [address] [place] [address], [place] [address] Apr, [facility] [address] [id number] [address] [place] [address], [place] [address] Mar, [facility] [address] [id number] [address] [place] [address], [place] [address] Mar, 2013 [facility] [address] [id number] [address] [place] [address], [place] [address] Mar, 2013 [facility] [address] [id number] [address] [place] [address], [place] [id number] Mar, 2013 [facility] [facility] [address] [id number] [address] [place] [address], [place] [address] Mar, 2013 [facility] [address] [id number] [address] [place] [address], [place] [address] Mar, 2013 [facility] [address] [id number] [address] [place] [address], [place] [address] Mar, 2013 [facility] [address] [id number] [address] [place] [address], [place] [address] Mar, 2013 [facility] [address] [id number] [address] [place] [address], [place] [address] Mar, 2013 [facility] [address] [id number] [address] [place] [address], [place] [address] Mar, 2013 [facility] [address] [id number] [address] [place] [address], [place] [address] Mar, 2013 [facility] [address] [id number] [address] [place] [address], [place] [address] Mar, [facility] [address] [id number] [address] [place] [address], [place] [address] 30 Feb, 2013 [facility] [address] [id number] [address] [place] [address], [place] [address] 29 Sep, 2013 [facility] [address] [id number] [address] [place] [address], [place] [address] 29 Feb, 2013 [facility] [address] [id number] [address] [place] [address], [place] [address] 23 Feb, 2013 [facility] [address] [id number] [address] [place] [address], [place] [address] Feb, [facility] [address] [id number] [facility] [place] [address] Feb, [facility] [address] [id number] [address] [place] [address], [place] [address] Feb, [facility] [address] [id number] [address] [place] [address], [place] [address] Jan, [facility] [address] [id number] [address] [place] [address], [place] [address] Jan, [facility] [address] [id number] [address] [place] [address], [place] [address] Jan, [facility] [address] [id number] [address] [place] [address], [place] [address] Dec, [facility] [address] [id number] [address] [place] [address], [place] [address] Dec, [facility] [address] [id number] [address] [place] [address], [place] [address] Dec, [facility] [address] [id number] [address] [place] [address], [place] [address] Dec, [facility] [address] [id number] [address] [place] [address], [place] [address] Sep, [facility] [address] [id number] [address] [place] [address], [place] [address] Sep, [facility] [address] [id number] [address] [place] [address], [place] [address] Sep, [facility] [address] [id number] [address] [place] [address], [place] [address] Sep, [facility] [address] [id number] [address] [place] [address], [place] [address] Sep, [facility] [address] [id number] [address] [place] [address], [place] [address] Sep, [facility] [address] [id number] [address] [place] [address], [place] [address] Sep, [facility] [address] [id number] [address] [place] [address], [place] [address] Sep, [facility] [address] [id number] [address] [place] [address], [place] [address] Aug, [facility] [address] [id number] [address] [place] [address], [place] [address] Aug, [facility] [address] [id number] [address] [place] [address], [place] [address] May, [facility] [address] [id number] [address] [place] [address], [place] [address] May, [facility] [address] [id number] [address] [place] [address], [place] [address] Apr, [facility] [address] [id number] [address] [place] [address], [place] [address] Apr, [facility] [address] [id number] [address] [place] [address], [place] [address] Apr, [facility] [address] [id number] [address] [place] [address], [place] [address] Apr, [facility] [address] [id number] [address] [place] [address], [place] [address] Apr, [facility] [address] [id number] [address] [place] [address], [place] [address] Apr, [facility] [address] [id number] [address] [place] [address], [place] [address] May, [facility] [address] [id number] [address] [place] [address], [place] [address] May, [facility] [address] [id number] [address] [place] [address], [place] [address] May, [facility] [address] [id number] [address] [place] [address], [place] [address] May, [facility] [address] [id number] [address] [place] [address], [place] [address] 13 May, 2012 [facility] [address] [id number] [address] [place] [address], [place] [address] May, [facility] [address] [id number] [address] [place] [address], [place] [address] 13 Apr, 2012 [facility] [address] [id number] [address] [place] [address], [place] [address] Apr, [facility] [address] [id number] [address] [place] [address], [place] [address] 08 Apr, 2012 [facility] [address] [id number] [address] [place] [address], [place] [address] Apr, [facility] [address] [id number] [address] [place] [address], [place] [address] Apr, [facility] [address] [id number] [address] [place] [address], [place] [address] Apr, [facility] [address] [id number] [address] [place] [address], [place] [address] Apr, [facility] [address] [id number] [address] [place] [address], [place] [address] Apr, [facility] [address] [id number] [address] [place] [address], [place] [address] Apr, [facility] [address] [id number] [address] [place] [address], [place] [address] Apr, [facility] [address] [id number] [address] [place] [address], [place] [address] Mar, [facility] [address] [id number] [address] [place] [address], [place] [address] Mar, [facility] [address] [id number] [address] [place] [address], [place] [address] Mar, [facility] [address] [id number] [address] [place] [address], [place] [address] Mar, [facility] [address] [id number] [address] [place] [address], [place] [address] Mar, [facility] [address] [id number] [address] [place] [address], [place] [address] Mar, [facility] [address] [id number] [address] [place] [address], [place] [address] Mar, [facility] [address] [id number] [address] [place] [address], [place] [address] Mar, [facility] [address] [id number] [address] [place] [address], [place] [address] Mar, [facility] [address] [id number] [address] [place] [address], [place] [address] Feb, [facility] [address] [id number] [address] [place] [address], [place] [address] 16 Feb, 2012 [facility] [address] [id number] [address] [place] [address], [place] [address] Feb, [facility] [address] [id number] [address] [place] [address], [place] [address] Jan, [facility] [address] [id number] [address] [place] [address], [place] [address] Jan, [facility] [address] [id number] [address] [place] [address], [place] [address] Jan, [facility] [address] [id number] [address] [place] [id number] Jan, [facility] [address] [id number] [address] [place] [address], [place] [address] Jan, [facility] [address] [id number] [address] [place] [address], [place] [address] Jan, [facility] [address] [id number] [address] [place] [address], [place] [address] Jan, [facility] [address] [id number] [address] [place] [address], [place] [address] Jan, [facility] [address] [id number] [address] [place] [address], [place] [address] Jan, [facility] [address] [id number] [address] [place] [address], [place] [address] Jan, [facility] [address] [id number] [address] [place] [address], [place] [address] Dec, [facility] [address] [id number] [address] [place] [address], [place] [address] Dec, [facility] [address] [id number] [address] [place] [address], [place] [address] Dec, [facility] [address] [id number] [address] [place] [address], [place] [address] Dec, [facility] [address] [id number] [address] [place] [address], [place] [address] Nov, [facility] [address] [id number] [address] [place] [address], [place] [address] Nov, [facility] [address] [id number] [address] [place] [address], [place] [address] Nov, [facility] [address] [id number] [address] [place] [address], [place] [address] October, [facility] [address] [id number] [address] [place] [address], [place] [address] October, [facility] [address] [id number] [address] [place] [address], [place] [address] October, [facility] [address] [id number] [address] [place] [address], [place] [address] October, [facility] [address] [id number] [address] [place] [address], [place] [address] October, [facility] [address] [id number] [address] [place] [address], [place] [address] October, [facility] [address] [id number] [address] [place] [id number] Aug, [facility] [address] [id number] [address] [place] [id number] Mar, [facility] [address] [id number] [address] [place] [id number] Nov, [facility] [address] [id number] [address] [place] [id number] May, [facility] [address] [id number] [address] [place] [id number] May, [facility] [address] [id number] [address] [place] [id number] Apr, [facility] [address] [id number] [address] [place] [phone] Mar, [facility] [address] [id number] [address] [place] [phone] Mar, IMMUNIZATIONS No Known Immunizations SOCIAL HISTORY Never Assessed REASON FOR VISIT EMR-[facility] PLAN OF CARE VITAL SIGNS MEDICATIONS Unknown [...]
--- OUTSIDE RECORDS SUMMARY | 2019-06-19 05:20 | XMS REPORT ---
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 Name Role Phone Migration, Doctor Unavailable Unavailable PROBLEMS Type Condition ICD9-CM Code IZZ96-HA Code Onset Dates Condition S tatus SNOMED Code Problem Hormone replacement therapy Z79.890 Ac tive 976403247 Problem Sensorineural hearing loss (SNHL) of both ears H90 .3 Active 814174342 Problem Abnormal CT scan, head R93.0 Active 801596464 Problem Arthralgia of hip, unspecified laterality M25.559 Active 82246414 Problem Bruising, spontaneous R23.3 Active 141207801 Problem Hypertension I10 Active 7577527 3 Problem Night sweats R61 Active 0210961 0 Problem Imbalance R26.89 Active 188198750 Problem Hammer toe of right foot M20.41 Activ e 363716927 Problem Bipolar 1 disorder, mixed F31.60 Acti ve 93698710 Problem Gastritis without bleeding, unspecified chronicity, unspecified gastritis type K29.70 Active 775631472 Problem Hearing loss, unspecified laterality H91.90 Active 47188790 Problem Ataxia R27.0 Active 06135783 Problem History of colon polyps Z86.010 Active 917914883 Problem Allergic rhinitis J30.9 Active 61 122210 Problem Hematuria, unspecified type R31.9 Ac tive 38898044 Problem Generalized anxiety disorder F41.1 A ctive 86360283 Problem Major depressive disorder, recurrent episode, moderate F33.1 Active 555539311 Problem Fibromyalgia M79.7 Active 5947052 7 Problem Bladder spasm N32.89 Active 864386 006 Problem Tobacco use disorder F17.200 Active 434259435 Problem Grief F43.20 Active 22791012 Problem Post menopausal syndrome N95.1 Activ e 558085069 Problem Hyperlipidemia, unspecified hyperlipidemia type E7 8.5 Active 96863510 Problem Other chronic pain G89.29 Active 8 4304546 Problem Acute left-sided low back pain with left-sided sciatica M54.42 Active 265848736 Problem Sciatica of left side M54.32 Active 41798168 Problem Plantar wart of right foot B07.0 Act mitchell [id number] Problem Slow transit constipation K59.01 Acti ve 53090425 ALLERGIES No Information ENCOUNTERS Encounter Location Date Diagnosis [facility] [address] [facility] [id number] [address] [place] [phone] October, [facility] [address] [facility] [id number] [address] [place] [phone] October, [facility] [address] [facility] [id number] [address] [place] [phone] October, [facility] [address] [place] [id number] [address] [place] [phone] October, [facility] [address] [place] [id number] [address] [place] [phone] Sep, [facility] [address] [place] [id number] [address] [place] [phone] Sep, Encounter for Medicare annua l wellness exam Z00.00 ; Major depressive disorder, recurrent episode, moderate F33.1 ; Allergic rhinitis J30.9 ; Bipolar 1 disorder, mixed F31.60 ; Fibromyalgia M79.7 ; Hyperlipidemia, unspecified hyperlipidemia type E78.5 ; Hormone replacement therapy Z79.890 ; Encounter for screening for lung cancer Z12.2 and Tobacco use disorder F17.200 [facility] [address] [facility] [id number] [address] [place] [phone] Sep, Bipolar 1 disorder, mixed F3 1.60 [facility] [address] [facility] [id number] [address] [place] [address] Sep, Other chronic pain G89.29 ; Hyperlipidemia, unspecified hyperlipidemia type E78.5 ; Breast cancer screening Z12.31 and Post menopausal syndrome N95.1 [facility] [address] [facility] [id number] [address] [place] [phone] Sep, Bipolar 1 disorder, mixed F3 1.60 [facility] [address] [address] 15 Sep, 2018 Bipolar 1 disorder, mixed F3 1.60 ; Generalized anxiety disorder F41.1 and Tobacco use disorder F17.200 [place] [address] [address] Sep, Gastritis without bleeding, unspecified chronicity, unspecified gastritis type K29.70 [place] [address] [address] 08 Sep, 2018 Exercise counseling Z71.82 [place] [address] [address] Aug, Exercise counseling Z71.82 [place] [address] [address] Aug, Bipolar 1 disorder, mixed F3 1.60 [place] [address] [address] Aug, Exercise counseling Z71.82 [place] [address] [address] Aug, Bipolar 1 disorder, mixed F3 1.60 [place] [address] [address] Aug, Gastritis without bleeding, unspecified chronicity, unspecified gastritis type K29.70 ; Tobacco abuse Z72.0 ; Generalized anxiety disorder F41.1 and Weight gain R63.5 [place] [address] [address] 14 Aug, 2018 Bipolar 1 disorder, mixed F3 1.60 ; Generalized anxiety disorder F41.1 and Tobacco use disorder F17.200 [place] [address] [address] Jul, Bipolar 1 disorder, mixed F3 1.60 [place] [address] [address] Jul, [place] [address] [place] [id number] [address] [place] [address] 18 Jul, 2018 Bipolar 1 disorder, mixed F3 1.60 [facility] [address] [facility] [id number] [address] [place] [phone] 11 Jul, 2018 Allergic rhinitis J30.9 ; Ma darion depressive disorder, recurrent episode, moderate F33.1 and Tobacco 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 [facility] [address] [facility] [id number] [address] [place] [address] Jun, [facility] [address] [facility] [id number] [address] [place] [address] Jun, [facility] [address] [facility] [id number] [address] [place] [phone] Jun, Bipolar 1 disorder, mixed F3 1.60 [place] [address] [place] [id number] [address] [place] [address] Jun, Bipolar 1 disorder, mixed F3 1.60 [place] [id number] [facility] [id number] [address] [place] [address] Jun, Bipolar 1 disorder, mixed F3 1.60 [place] [address] [facility] [id number] [address] [place] [address] Jun, Generalized anxiety disorder F41.1 ; Tobacco abuse Z72.0 and Major depressive disorder, recurrent episode, moderate F33.1 [place] [id number] [facility] [id number] [address] [place] [phone] May, Bipolar 1 disorder, mixed F3 1.60 [place] [address] [facility] [id number] [address] [place] [address] May, Bipolar 1 disorder, mixed F3 1.60 and Generalized anxiety disorder F41.1 [facility] [address] [facility] [id number] [address] [place] [phone] May, Bipolar 1 disorder, mixed F3 1.60 [place] [address] [place] [id number] [address] [place] [phone] May, Allergic rhinitis J30.9 [facility] [address] [place] [id number] [address] [place] [phone] May, Bipolar 1 disorder, mixed F3 1.60 [facility] [address] [place] [id number] [address] [place] [phone] May, [facility] [address] [place] [id number] [address] [place] [address] Apr, Allergic rhinitis J30.9 ; Dy sfunction of both eustachian tubes H69.83 ; History of bladder surgery Z98.890 and Cervicalgia M54.2 [facility] [address] [place] [id number] [address] [place] [phone] Mar, Bipolar 1 disorder, mixed F3 1.60 [place] [address] [place] [id number] [address] [place] [phone] Mar, [facility] [address] [place] [id number] [place] [address] Mar, Slow transit constipation K5 9.01 ; Encounter for immunization Z23 and Generalized anxiety disorder F41.1 [facility] [address] [place] [id number] [address] [place] [phone] Feb, Bipolar 1 disorder, mixed F3 1.60 [facility] [address] [place] [id number] [address] [place] [phone] Feb, Allergic rhinitis J30.9 [facility] [address] [place] [id number] [address] [place] [address] Feb, Bipolar 1 disorder, mixed F3 1.60 [facility] [address] [place] [id number] [address] [place] [address] Feb, Bipolar 1 disorder, mixed F3 1.60 and Generalized anxiety disorder F41.1 [facility] [address] [place] [id number] [address] [place] [id number] Feb, Bipolar 1 disorder, mixed F3 1.60 [facility] [address] [place] [address] [place] [address] Feb, Allergic rhinitis J30.9 [place] [address] [place] [id number] [address] [place] [phone] Feb, [facility] [address] [place] [id number] [address] [place] [phone] Jan, Bipolar 1 disorder, mixed F3 1.60 [place] [address] [place] [id number] [address] [place] [address] Jan, Low back pain M54.5 ; Hyperl ipidemia, unspecified hyperlipidemia type E78.5 and Bipolar 1 disorder, mixed F31.60 [place] [address] [place] [id number] [address] [place] [address] Jan, Bipolar 1 disorder, mixed F3 1.60 [place] [address] [address] Jan, Bipolar 1 disorder, mixed F3 1.60 [place] [address] [place] [id number] [address] [place] [phone] Jan, Bipolar 1 disorder, mixed F3 1.60 [place] [address] [place] [id number] [address] [place] [id number] Jan, Bipolar 1 disorder, mixed F3 1.60 [place] [address] [place] [id number] [address] [place] [address] Dec, Bipolar 1 disorder, mixed F3 1.60 ; Generalized anxiety disorder F41.1 and Other long-term (current) 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 Z79.899 [place] [address] [facility] [id number] [address] [place] [address] Dec, Other long-term (current) 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 Z79.899 [place] [address] [facility] [id number] [address] [place] [phone] Dec, Bipolar 1 disorder, mixed F3 1.60 [place] [address] [place] [id number] [address] [place] [address] Dec, Bipolar 1 disorder, mixed F3 1.60 [facility] [address] [place] [id number] [place] [address] Nov, Bipolar 1 disorder, mixed F3 1.60 [facility] [address] [place] [id number] [address] [place] [phone] Nov, Bipolar 1 disorder, mixed F3 1.60 [place] [address] [address] Nov, Bipolar 1 disorder, mixed F3 1.60 [place] [address] [place] [id number] [place] [address] Nov, Allergic rhinitis J30.9 [place] [address] [place] [id number] [place] [address] Nov, Allergic rhinitis J30.9 [place] [address] [address] Nov, [facility] [address] [address] Nov, Bipolar 1 disorder, mixed F3 1.60 [place] [address] [address] Nov, Fibromyalgia M79.7 and Aller gic rhinitis J30.9 [place] [address] [place] [id number] [address] [place] [address] October, Bipolar 1 disorder, mixed F3 1.60 [facility] [address] [place] [id number] [address] [place] [phone] October, Acute nasopharyngitis J00 [facility] [address] [place] [id number] [address] [place] [address] October, Bitten or stung by nonvenomo us insect and other nonvenomous arthropods, initial encounter W57.XXXA and Insect bite (nonvenomous) of abdominal wall, initial encounter S30.861A [place] [address] [facility] [id number] [address] [place] [address] October, Insect bite (nonvenomous) of abdominal wall, initial encounter S30.861A ; Bitten or stung by nonvenomous insect and other nonvenomous arthropods, initial encounter W57.XXXA ; Allergic rhinitis J30.9 and Low back pain M54.5 [facility] [address] [facility] [id number] [address] [place] [address] October, Bipolar 1 disorder, mixed F3 1.60 [facility] [address] [facility] [id number] [address] [place] [phone] October, [facility] [address] [facility] [id number] [address] [place] [phone] October, [facility] [address] [place] [id number] [address] [place] [address] October, Bipolar 1 disorder, mixed F3 1.60 [facility] [address] [facility] [id number] [address] [place] [phone] Sep, Bipolar 1 disorder, mixed F3 1.60 [facility] [address] [place] [id number] [address] [place] [id number] Sep, Other chronic pain G89.29 [facility] [address] [place] [id number] [address] [place] [phone] Sep, [facility] [address] [facility] [id number] [address] [place] [phone] Sep, Bipolar 1 disorder, mixed F3 1.60 [facility] [address] [facility] [id number] [address] [place] [phone] Sep, Allergic rhinitis J30.9 and Sciatica of left side M54.32 [facility] [address] [facility] [id number] [address] [place] [phone] Sep, Bipolar 1 disorder, mixed F3 1.60 [facility] [address] [facility] [id number] [address] [place] [phone] Sep, Bipolar 1 disorder, mixed F3 1.60 and Generalized anxiety disorder F41.1 [facility] [address] [facility] [id number] [address] [place] [phone] Aug, [facility] [address] [facility] [id number] [address] [place] [address] Aug, Bipolar 1 disorder, mixed F3 1.60 [facility] [address] [facility] [id number] [address] [place] [address] Aug, Bipolar 1 disorder, mixed F3 1.60 [facility] [address] [facility] [id number] [address] [place] [address] Aug, [facility] [address] [facility] [id number] [address] [place] [id number] Aug, Generalized anxiety disorder F41.1 [facility] [address] [place] [id number] [address] [place] [address] Aug, Bipolar 1 disorder, mixed F3 1.60 [facility] [address] [facility] [id number] [address] [place] [address] Aug, Plantar wart of right foot B 07.0 [facility] [address] [facility] [id number] [address] [place] [phone] Aug, Bipolar 1 disorder, mixed F3 1.60 [facility] [address] [facility] [id number] [address] [place] [phone] Jul, Bipolar 1 disorder, mixed F3 1.60 [facility] [address] [facility] [id number] [address] [place] [phone] Jul, [facility] [address] [facility] [id number] [address] [place] [phone] 14 Jul, 2017 Bipolar 1 disorder, mixed F3 1.60 [facility] [address] [facility] [id number] [address] [place] [phone] 09 Jul, 2017 Generalized anxiety disorder F41.1 [facility] [address] [facility] [id number] [address] [place] [phone] 07 Jul, 2017 Bipolar 1 disorder, mixed F3 1.60 [facility] [address] [facility] [id number] [address] [place] [phone] 07 Jul, 2017 Acute left-sided low back pa in with left-sided sciatica M54.42 [facility] [address] [facility] [id number] [address] [place] [address] 05 Jul, 2017 Coccydynia M53.3 [facility] [address] [facility] [id number] [address] [place] [address] Jun, Bipolar 1 disorder, mixed F3 1.60 [facility] [address] [facility] [id number] [address] [place] [phone] Jun, Acute nasopharyngitis J00 [place] [address] [place] [id number] [address] [place] [address] Jun, Bipolar 1 disorder, mixed F3 1.60 [place] [address] [place] [id number] [address] [place] [address] Jun, Fibromyalgia M79.7 [place] [address] [facility] [id number] [address] [place] [address] Jun, Bipolar 1 disorder, mixed F3 1.60 [place] [address] [place] [id number] [address] [place] [address] Jun, Fibromyalgia M79.7 and Bipol ar 1 disorder, mixed F31.60 [facility] [address] [facility] [id number] [address] [place] [address] May, Bipolar 1 disorder, mixed F3 1.60 ; Generalized anxiety disorder F41.1 and Other long-term (current) 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 Z79.899 [facility] [address] [facility] [id number] [address] [place] [phone] May, Bipolar 1 disorder, mixed F3 1.60 [facility] [address] [facility] [id number] [address] [place] [address] 14 May, 2017 Cough R05 and Body aches R52 [facility] [address] [address] 10 May, 2017 Bladder spasm N32.89 and Acu te cystitis without hematuria N30.00 [facility] [address] [address] 07 May, 2017 Bipolar 1 disorder, mixed F3 1.60 [facility] [address] [address] 30 Apr, 2017 [place] [address] [address] Apr, Major depressive disorder, r ecurrent episode, moderate F33.1 and Encounter for immunization Z23 [place] [address] [address] Apr, Bipolar 1 disorder, mixed F3 1.60 [place] [id number] [address] 22 Apr, 2017 Bipolar 1 disorder, mixed F3 1.60 [place] [address] [address] 16 Apr, 2017 Bipolar 1 disorder, mixed F3 1.60 [place] [address] [address] 13 Apr, 2017 Yeast vaginitis B37.3 [place] [address] [address] 09 Apr, 2017 Bipolar 1 disorder, mixed F3 1.60 [facility] [address] [address] 07 Apr, [address] for immunization Z23 [facility] [address] [address] 02 Apr, 2017 Bipolar 1 disorder, mixed F3 1.60 [place] [address] [address] Mar, Bipolar 1 disorder, mixed F3 1.60 [place] [address] [place] [address] Mar, Bipolar 1 disorder, mixed F3 1.60 [place] [address] [address] Mar, Imbalance R26.[address] for immunization Z23 [place] [address] [address] Mar, Generalized anxiety disorder F41.1 [place] [address] [place] [address] Mar, Bipolar 1 disorder, mixed F3 1.60 [place] [address] [address] Mar, Generalized anxiety disorder F41.1 [place] [address] [address] Mar, Bipolar 1 disorder, mixed F3 1.60 [place] [address] [place] [address] Mar, Bipolar 1 disorder, mixed F3 1.60 [place] [address] [address] Feb, Bipolar 1 disorder, mixed F3 1.60 [place] [address] [address] Feb, Bipolar 1 disorder, mixed F3 1.60 and Generalized anxiety disorder F41.1 [place] [address] [place] [id number] Feb, Gastritis without bleeding, unspecified chronicity, unspecified gastritis type K29.70 ; Hammer toe of right foot M20.41 and Other viral warts B07.8 [place] [address] [address] Feb, Bipolar 1 disorder, mixed F3 1.60 [facility] [address] [facility] [id number] [address] [place] [address] 13 Feb, 2017 Bipolar 1 disorder, mixed F3 1.60 [facility] [address] [facility] [id number] [address] [place] [phone] 05 Feb, 2017 Bipolar 1 disorder, mixed F3 1.60 [facility] [address] [facility] [id number] [address] [place] [phone] Jan, Encounter for screening mamm ogram for breast cancer Z12.31 ; Other viral warts B07.8 and Allergic rhinitis J30.9 [facility] [address] [facility] [id number] [address] [place] [phone] Jan, Bipolar 1 disorder, mixed F3 1.60 [facility] [address] [facility] [id number] [address] [place] [phone] Jan, Bipolar 1 disorder, mixed F3 1.60 [facility] [address] [facility] [id number] [address] [place] [phone] 14 Jan, 2017 [facility] [address] [facility] [id number] [address] [place] [phone] Jan, Bipolar 1 disorder, mixed F3 1.60 [facility] [address] [facility] [id number] [address] [place] [phone] Jan, Bipolar 1 disorder, mixed F3 1.60 [facility] [address] [facility] [id number] [address] [place] [phone] Jan, Allergic rhinitis J30.9 ; He maturia R31.9 and Colon cancer screening Z12.11 [facility] [address] [facility] [id number] [address] [place] [phone] Dec, Bipolar 1 disorder, mixed F3 1.60 [facility] [address] [facility] [id number] [address] [place] [id number] 18 Dec, 2016 Bipolar 1 disorder, mixed F3 1.60 ; Generalized anxiety disorder F41.1 and 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 [facility] [address] [facility] [id number] [address] [place] [phone] Dec, Bipolar 1 disorder, mixed F3 1.60 [facility] [address] [facility] [id number] [address] [place] [phone] Dec, Bipolar 1 disorder, mixed F3 1.60 [facility] [address] [facility] [id number] [address] [place] [id number] Dec, Bipolar 1 disorder, mixed F3 1.60 [facility] [address] [facility] [id number] [address] [place] [address] Dec, Low back pain M54.5 and Recu rrent urinary tract infection N39.0 [place] [address] [place] [id number] [address] [place] [address] Nov, Bipolar 1 disorder, mixed F3 1.60 [place] [address] [facility] [id number] [address] [place] [phone] Nov, Bipolar 1 disorder, mixed F3 1.60 [place] [address] [place] [id number] [address] [place] [address] Nov, Bipolar 1 disorder, mixed F3 1.60 [facility] [address] [place] [id number] [address] [place] [address] Nov, Bipolar 1 disorder, mixed F3 1.60 [place] [address] [facility] [id number] [address] [place] [address] Nov, [facility] [address] [facility] [id number] [address] [place] [address] Nov, Anesthesia of skin R20.0 ; F requent UTI N39.0 ; Tobacco abuse Z72.0 and Colon cancer screening Z12.11 [facility] [address] [place] [id number] [address] [place] [address] Nov, Bipolar 1 disorder, mixed F3 1.60 [place] [id number] [place] [address] October, Bipolar 1 disorder, mixed F3 1.60 [facility] [address] [place] [id number] October, Bipolar 1 disorder, mixed F3 1.60 [place] [address] [address] October, Bipolar 1 disorder, mixed F3 1.60 [place] [address] [address] October, Bipolar 1 disorder, mixed F3 1.60 [place] [address] [address] October, Bipolar 1 disorder, mixed F3 1.60 [place] [address] [address] October, Cervicalgia M54.2 and Bipola r 1 disorder, mixed F31.60 [place] [address] [place] [id number] [place] [address] October, Hypertension I10 ; Hyperlipi demia, unspecified hyperlipidemia type E78.5 and Family history of thyroid disease Z83.49 [place] [address] [address] October, [place] [address] [address] October, Hypertension I10 ; Hyperlipi demia, unspecified hyperlipidemia type E78.5 and Family history of thyroid problem Z83.49 [place] [address] [place] [id number] [place] [address] October, Bipolar 1 disorder, mixed F3 1.60 [place] [address] [place] [id number] [address] [place] [address] Sep, Bipolar 1 disorder, mixed F3 1.60 [place] [address] [address] Sep, Bipolar 1 disorder, mixed F3 1.60 [facility] [address] [place] [id number] [address] [place] [address] Sep, Bipolar 1 disorder, mixed F3 1.60 [facility] [address] [place] [id number] [address] [place], [place] [address] Sep, History of colon polyps Z86. 010 and Hematochezia K92.1 [facility] [address] [place] [id number] [address] [place] [address] Sep, Major depressive disorder, r ecurrent episode, moderate F33.1 [facility] [address] [place] [id number] [place] [address] Sep, Bipolar 1 disorder, mixed F3 1.60 [facility] [address] [place] [id number] [address] [place] [address] Aug, Hot flashes due to menopause N95.1 [facility] [address] [place] [id number] [address] [place] [address] Aug, Bipolar 1 disorder, mixed F3 1.60 [facility] [address] [place] [id number] [address] [place] [address] Aug, [facility] [address] [place] [id number] [address] [place] [phone] Aug, Bipolar 1 disorder, mixed F3 1.60 [facility] [address] [place] [id number] [address] [place] [address] Aug, Bipolar 1 disorder, mixed F3 1.60 [facility] [address] [place] [id number] [address] [place] [address] Aug, Hot flashes due to menopause N95.1 ; Cervicalgia M54.2 and Ataxia R27.0 [facility] [address] [place] [id number] [address] [place] [address] Jul, Bipolar 1 disorder, mixed F3 1.60 [facility] [address] [address] Jul, Bipolar 1 disorder, mixed F3 1.60 [place] [address] [place] [address] Jul, Bipolar 1 disorder, mixed F3 1.60 [place] [address] [address] Jul, Bipolar 1 disorder, mixed F3 1.60 [place] [address] [address] Jul, Bipolar 1 disorder, mixed F3 1.60 [place] [address] [place] [address] 08 Jul, 2016 Cervicalgia M54.2 ; Tremor R 25.1 ; Hearing abnormally acute, unspecified laterality H93.239 ; Alopecia L65.9 ; Encounter for immunization Z23 and Family history of thyroid disease Z83.49 [place] [address] [address] Jul, Bipolar 1 disorder, mixed F3 1.60 [place] [address] [address] Jun, [place] [address] [address] Jun, Hearing disorder, unspecifie d laterality H93.299 [place] [address] [address] Jun, Bipolar 1 disorder, mixed F3 1.60 [place] [address] [address] Jun, Bipolar 1 disorder, mixed F3 1.60 [place] [address] [address] Jun, Allergic rhinitis J30.9 [place] [address] [address] Jun, Bipolar 1 disorder, mixed F3 1.60 [facility] [address] [id number] [address] [place] [id number] Jun, Bipolar 1 disorder, mixed F3 1.60 [facility] [address] [id number] [address] [place] [address] Jun, Allergic rhinitis J30.9 [facility] [address] [id number] [address] [place] [address] Jun, Allergic rhinitis J30.9 [facility] [address] [id number] [address] [place] [phone] Jun, Bipolar 1 disorder, mixed F3 1.60 [facility] [address] [id number] [address] [place] [address] May, Bipolar 1 disorder, mixed F3 1.60 [facility] [address] [id number] [address] [place] [address] May, Bipolar 1 disorder, mixed F3 1.60 [facility] [address] [id number] [address] [place] [id number] May, [facility] [address] [id number] [address] [place] [address] May, Bipolar 1 disorder, mixed F3 1.60 [facility] [address] [id number] [address] [place] [address] May, Bipolar 1 disorder, mixed F3 1.60 [facility] [address] [id number] [address] [place] [phone] May, [facility] [address] [id number] [address] [place] [phone] May, [facility] [address] [id number] [address] [place] [phone] May, [facility] [address] [id number] [address] [place] [address] May, Abdominal pain, unspecified location R10.9 [facility] [address] [place] [id number] [address] [place] [address] May, [facility] [address] [address] Apr, Hematuria R31.9 ; Ataxia R27 .0 and Hearing loss, unspecified laterality H91.90 [facility] [address] [address] Apr, Bipolar 1 disorder, mixed F3 1.60 [facility] [address] [address] Apr, Acute effusion of both middl e ears H65.193 [facility] [address] [address] Apr, Hematuria R31.9 and Pyelonep hritis N12 [place] [address] [place] [id number] [address] [place] [address] Apr, [facility] [address] [address] Mar, Bipolar 1 disorder, mixed F3 1.60 [facility] [address] [address] Mar, [facility] [address] [address] Mar, Bipolar 1 disorder, mixed F3 1.60 [place] [address] [place] [id number] [address] [place] [address] Mar, Bipolar 1 disorder, mixed F3 1.60 [place] [address] [address] Mar, Encounter for immunization Z 23 and Gastritis without bleeding, unspecified chronicity, unspecified gastritis type K29.70 [facility] [address] [place] [id number] [address] [place] [address] Mar, Bipolar 1 disorder, mixed F3 1.60 and Grief F43.20 [place] [address] Mar, Gastritis without bleeding, unspecified chronicity, unspecified gastritis type K29.70 [place] [address] Mar, Bipolar 1 disorder, mixed F3 1.60 [place] [address] Mar, Gastritis without bleeding, unspecified chronicity, unspecified gastritis type K29.70 [place] [address] Mar, [place] [address] Feb, Bipolar 1 disorder, mixed F3 1.60 [place] [address] Feb, Bipolar 1 disorder, mixed F3 1.60 and Grief F43.20 [place] [address] Feb, Gastritis without bleeding, unspecified chronicity, unspecified gastritis type K29.70 [place] [address] [place] [address] 14 Feb, 2016 Bipolar 1 disorder, mixed F3 1.60 [facility] [address] [place] [id number] [address] [place] [address] 09 Feb, 2016 Gastroesophageal reflux dise ase, esophagitis presence not specified K21.9 [place] [address] [place] [address] Jan, Bipolar 1 disorder, mixed F3 1.60 [facility] [address] [place] [id number] [address] [place], [place] [address] Jan, Bipolar 1 disorder, mixed F3 1.60 and Unsteady gait R26.81 [facility] [address] [facility] [id number] [address] [place] [address] Jan, Bipolar 1 disorder, mixed F3 1.60 [place] [address] [facility] [id number] [address] [place] [address] Jan, Bipolar 1 disorder, mixed F3 1.60 and 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 [facility] [address] [facility] [id number] [address] [place] [address] Jan, Bipolar 1 disorder, mixed F3 1.60 [place] [address] [facility] [id number] [address] [place] [address] Jan, Bipolar 1 disorder, mixed F3 1.60 [place] [address] [place] [id number] [address] [place] [address] Jan, Bipolar 1 disorder, mixed F3 1.60 ; Grief F43.20 and 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 [place] [id number] [facility] [id number] [address] [place] [address] Jan, Bipolar 1 disorder, mixed F3 1.60 [place] [address] [place] [id number] [address] [place] [address] Dec, [place] [address] [place] [id number] [address] [place] [address] Dec, Bipolar 1 disorder, mixed F3 1.60 ; Vitamin D deficiency, unspecified E55.9 ; H/O allergic rhinitis Z87.09 ; Other chronic pain G89.29 and Dorsalgia, unspecified M54.9 [place] [address] [facility] [id number] [address] [place] [address] Dec, [place] [address] [place] [id number] [address] [place] [address] Dec, Bipolar 1 disorder, mixed F3 1.60 [place] [address] [place] [id number] [address] [place] [address] Dec, Major depressive disorder, r ecurrent episode, moderate F33.1 [facility] [address] [facility] [id number] [address] [place] [address] Dec, Major depressive disorder, r ecurrent episode, moderate F33.1 [place] [address] [facility] [id number] [address] [place] [address] Nov, [facility] [address] [place] [id number] [address] [place] [address] Nov, Bipolar 1 disorder, mixed F3 1.60 [place] [address] [facility] [id number] [address] [place] [address] Nov, Major depressive disorder, r ecurrent episode, moderate F33.1 [place] [address] [place] [id number] [address] [place] [address] Nov, Cervicalgia M54.2 ; Arthralg ia of hip, unspecified laterality M25.559 ; Allergic rhinitis J30.9 and Hormone replacement therapy Z79.890 [facility] [address] [place] [address] Nov, Other seasonal allergic rhin itis J30.2 [place] [id number] [place] [address] October, Major depressive disorder, r ecurrent episode, moderate F33.1 [facility] [address] [place] [address] October, Major depressive disorder, r ecurrent episode, moderate F33.1 and Arthralgia of hip, unspecified laterality M25.559 [place] [address] [place] [address] October, Grief F43.20 ; Hypertension I10 ; Hyperlipidemia, unspecified hyperlipidemia type E78.5 ; Other chronic pain G89.29 and Allergic rhinitis, unspecified allergic rhinitis type J30.9 [facility] [address] [place] [address] October, Major depressive disorder, r ecurrent episode, moderate F33.1 [facility] [address] [facility] [id number] [address] [place] [address] Sep, Major depressive disorder, r ecurrent episode, moderate F33.1 [facility] [address] [facility] [id number] [address] [place] [phone] Sep, [facility] [address] [facility] [id number] [address] [place] [address] Sep, Major depressive disorder, r ecurrent episode, moderate F33.1 [place] [address] [facility] [id number] [address] [place] [address] Sep, Grief F43.20 [facility] [address] [facility] [id number] [address] [place] [address] Aug, Major depressive disorder, r ecurrent episode, moderate F33.1 [place] [address] [place] [id number] [address] [place] [address] Aug, Bipolar 1 disorder, mixed F3 1.60 [place] [address] [place] [id number] [address] [place] [address] Aug, Allergic rhinitis J30.9 ; Ce rvicalgia M54.2 and Low back pain M54.5 [facility] [address] [facility] [id number] [address] [place] [address] Aug, Major depressive disorder, r ecurrent episode, moderate F33.1 [facility] [address] [facility] [id number] [address] [place] [address] Aug, Sinusitis J32.9 and Tobacco 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 [facility] [address] [facility] [id number] [address] [place] [address] Aug, [facility] [address] [facility] [id number] [address] [place] [address] Aug, Depressive disorder, not els ewhere classified F32.9 ; Hormone replacement therapy Z79.[address] scan, head R93.0 [facility] [address] [id number] [address] [place] [address] 08 Aug, 2015 Major depressive disorder, r ecurrent episode, moderate F33.1 [facility] [address] [id number] [address] [place] [id number] Jul, Major depressive disorder, r ecurrent episode, moderate F33.1 [facility] [address] [id number] [address] [place] [phone] Jul, Abdominal pain R10.9 and Hyp ertension I10 [facility] [address] [id number] [address] [place] [phone] Jul, [facility] [address] [id number] [address] [place] [address] Jul, Major depressive disorder, r ecurrent episode, moderate F33.1 [facility] [address] [id number] [address] [place] [phone] Jul, [facility] [address] [id number] [address] [place] [id number] Jul, [facility] [address] [id number] [address] [place] [address] Jun, [facility] [address] [id number] [address] [place] [address] Jun, Depressive disorder, not els ewhere classified F32.9 [facility] [address] [id number] [address] [place] [phone] Jun, [facility] [address] [id number] [address] [place] [phone] Jun, [facility] [address] [facility] [id number] [address] [place] [address] Jun, Arthralgia of hip, unspecifi ed laterality M25.559 ; Bruising, spontaneous R23.3 and Night sweats R61 [facility] [address] [id number] [address] [place] [address] Jun, [facility] [address] [id number] [address] [place] [address] Jun, [facility] [address] [id number] [address] [place] [address] May, [facility] [address] [id number] [address] [place] [address] May, Myalgia M79.1 and Screening, lipid Z13.220 [facility] [address] [facility] [id number] [address] [place] [phone] Apr, Status post cervical spinal fusion Z98.1 ; Fibromyalgia M79.7 and Unsteady gait R26.81 [facility] [address] [id number] [address] [place] [phone] Nov, [facility] [address] [id number] [address] [place] [phone] Nov, [facility] [address] [id number] [address] [place] [phone] October, [facility] [address] [facility] [id number] [address] [place] [phone] October, [facility] [address] [id number] [address] [place] [phone] October, [facility] [address] [id number] [address] [place] [phone] October, [facility] [address] [facility] [id number] [address] [place] [phone] October, [facility] [address] [facility] [id number] [address] [place] [phone] October, Dysuria 788.1 ; Nausea 787.0 2 and Urinary tract infection 599.0 [facility] [address] [id number] [address] [place] [address] 14 Sep, 2014 [facility] [address] [id number] [facility] [address] 13 Sep, 2014 [facility] [address] [id number] [address] [place] [address], [place] [address] 25 Aug, 2014 [facility] [address] [id number] [address] [place] [address], [place] [address] 25 Aug, 2014 [facility] [address] [id number] [address] [place] [address], [place] [address] 24 Aug, 2014 [facility] [address] [id number] [address] [place] [address], [place] [address] 24 Aug, 2014 [facility] [address] [id number] [address] [place] [address], [place] [address] 23 Aug, 2014 [facility] [address] [id number] [address] [place] [address], [place] [address] 19 Aug, 2014 [facility] [address] [id number] [address] [place] [address], [place] [address] 19 Aug, 2014 [facility] [address] [id number] [address] [place] [address], [place] [address] 19 Aug, 2014 [facility] [address] [id number] [address] [place] [address], [place] [address] 19 Aug, 2014 [facility] [address] [id number] [address] [place] [address], [place] [address] 18 Aug, 2014 [facility] [address] [id number] [address] [place] [address], [place] [address] 18 Aug, 2014 [facility] [address] [id number] [address] [place] [address], [place] [address] 13 Aug, 2014 [facility] [address] [id number] [address] [place] [address], [place] [address] 13 Aug, 2014 [facility] [address] [id number] [address] [place] [address], [place] [address] 11 Aug, 2014 [facility] [address] [id number] [address] [place] [address], [place] [address] Aug, [facility] [address] [id number] [address] [place] [address], [place] [address] Aug, 2014 [facility] [address] [id number] [address] [place] [address], [place] [address] Aug, 2014 [facility] [address] [id number] [address] [place] [address], [place] [address] Aug, 2014 [facility] [address] [id number] [address] [place] [address], [place] [address] Aug, 2014 [facility] [address] [id number] [address] [place] [address], [place] [address] Aug, [facility] [address] [id number] [address] [place] [address], [place] [address] Aug, [facility] [address] [id number] [address] [place] [address], [place] [address] Aug, [facility] [address] [id number] [address] [place] [address], [place] [address] Jul, [facility] [address] [id number] [address] [place] [address], [place] [address] Jul, [facility] [address] [id number] [address] [place] [address], [place] [address] Jul, [facility] [address] [id number] [address] [place] [address], [place] [address] Jul, 2014 [facility] [address] [id number] [address] [place] [address], [place] [address] Jul, [facility] [address] [id number] [address] [place] [address], [place] [address] Jul, [facility] [address] [id number] [address] [place] [address], [place] [address] Jul, 2014 [facility] [address] [id number] [address] [place] [address], [place] [address] Jul, [facility] [address] [id number] [address] [place] [address], [place] [address] Jul, [facility] [address] [id number] [address] [place] [address], [place] [address] Jul, [facility] [address] [id number] [address] [place] [address], [place] [address] Jul, [facility] [address] [id number] [address] [place] [address], [place] [address] Jul, 2014 [facility] [address] [id number] [address] [place] [address], [place] [address] Jul, [facility] [address] [id number] [address] [place] [address], [place] [address] Jul, [facility] [address] [id number] [address] [place] [address], [place] [address] Jun, [facility] [address] [id number] [address] [place] [address], [place] [address] Jun, [facility] [address] [id number] [address] [place] [address], [place] [address] Jun, [facility] [address] [id number] [address] [place] [address], [place] [address] Jun, [facility] [address] [id number] [address] [place] [address], [place] [address] Jun, [facility] [address] [id number] [address] [place] [address], [place] [address] Jun, [facility] [address] [id number] [address] [place] [address], [place] [address] May, [facility] [address] [id number] [address] [place] [address], [place] [address] May, [facility] [address] [id number] [address] [place] [address], [place] [address] May, [facility] [address] [id number] [address] [place] [address], [place] [address] May, [facility] [address] [id number] [address] [place] [address], [place] [address] May, [facility] [address] [id number] [address] [place] [address], [place] [address] May, [facility] [address] [id number] [address] [place] [address], [place] [address] Apr, [facility] [address] [id number] [address] [place] [address], [place] [address] Apr, [facility] [address] [id number] [address] [place] [address], [place] [address] Apr, [facility] [address] [id number] [address] [place] [address], [place] [address] Apr, [facility] [address] [id number] [address] [place] [address], [place] [address] Apr, [facility] [address] [id number] [address] [place] [address], [place] [address] Apr, [facility] [address] [id number] [address] [place] [address], [place] [address] Mar, [facility] [address] [id number] [address] [place] [address], [place] [address] Mar, [facility] [address] [id number] [address] [place] [address], [place] [address] Mar, [facility] [address] [id number] [address] [place] [address], [place] [address] Mar, [facility] [address] [id number] [address] [place] [address], [place] [address] Mar, [facility] [address] [id number] [address] [place] [address], [place] [address] Mar, [facility] [address] [id number] [address] [place] [address], [place] [address] Mar, [facility] [address] [id number] [address] [place] [address], [place] [address] Mar, [facility] [address] [id number] [address] [place] [address], [place] [address] Mar, [facility] [address] [id number] [address] [place] [address], [place] [address] Mar, [facility] [address] [id number] [address] [place] [address], [place] [address] Mar, [facility] [address] [id number] [address] [place] [address], [place] [address] Mar, [facility] [address] [id number] [address] [place] [address], [place] [address] 30 Feb, 2014 [facility] [address] [id number] [address] [place] [address], [place] [address] 29 Feb, 2014 [facility] [address] [id number] [address] [place] [address], [place] [address] 29 Feb, 2014 [facility] [address] [id number] [address] [place] [address], [place] [address] 23 Feb, 2014 [facility] [address] [id number] [address] [place] [address], [place] [address] 23 Feb, 2014 [facility] [address] [id number] [address] [place] [address], [place] [address] 08 Feb, 2014 [facility] [address] [id number] [address] [place] [address], [place] [address] 08 Feb, 2014 [facility] [address] [id number] [address] [place] [address], [place] [address] Jan, [facility] [address] [id number] [address] [place] [address], [place] [address] Jan, [facility] [address] [id number] [address] [place] [address], [place] [address] Jan, [facility] [address] [id number] [address] [place] [address], [place] [address] Dec, [facility] [address] [id number] [address] [place] [address], [place] [address] Dec, [facility] [address] [id number] [address] [place] [address], [place] [address] Dec, [facility] [address] [id number] [address] [place] [address], [place] [address] Dec, [facility] [address] [id number] [address] [place] [address], [place] [address] Sep, [facility] [address] [id number] [address] [place] [address], [place] [address] Sep, [facility] [address] [id number] [address] [place] [address], [place] [address] Sep, [facility] [address] [id number] [address] [place] [address], [place] [address] Sep, [facility] [address] [id number] [address] [place] [address], [place] [address] Sep, [facility] [address] [id number] [address] [place] [address], [place] [address] Sep, [facility] [address] [id number] [address] [place] [address], [place] [address] Sep, [facility] [address] [id number] [address] [place] [address], [place] [address] Sep, [facility] [address] [id number] [address] [place] [address], [place] [address] Aug, [facility] [address] [id number] [address] [place] [address], [place] [address] Aug, [facility] [address] [id number] [address] [place] [address], [place] [address] May, [facility] [address] [id number] [address] [place] [address], [place] [address] May, [facility] [address] [id number] [address] [place] [address], [place] [address] Apr, [facility] [address] [id number] [address] [place] [address], [place] [address] Apr, [facility] [address] [id number] [address] [place] [address], [place] [address] Apr, [facility] [address] [id number] [address] [place] [address], [place] [address] Apr, [facility] [address] [id number] [address] [place] [address], [place] [address] Apr, [facility] [address] [id number] [address] [place] [address], [place] [address] Apr, [facility] [address] [id number] [address] [place] [address], [place] [address] May, [facility] [address] [id number] [address] [place] [address], [place] [address] 18 May, 2012 [facility] [address] [id number] [address] [place] [address], [place] [address] 15 May, 2012 [facility] [address] [id number] [address] [place] [address], [place] [address] 15 May, 2012 [facility] [address] [id number] [address] [place] [address], [place] [address] 13 May, 2012 [facility] [address] [id number] [address] [place] [address], [place] [address] May, [facility] [address] [id number] [address] [place] [address], [place] [address] Apr, [facility] [address] [id number] [address] [place] [address], [place] [address] Apr, [facility] [address] [id number] [address] [place] [address], [place] [address] 08 Apr, 2012 [facility] [address] [id number] [address] [place] [address], [place] [address] 08 Apr, 2012 [facility] [address] [id number] [address] [place] [address], [place] [address] 08 Apr, 2012 [facility] [address] [id number] [address] [place] [address] 08 Apr, 2012 [facility] [address] [id number] [address] [place] [address], [place] [address] Apr, [facility] [address] [id number] [address] [place] [address] Apr, [facility] [address] [id number] [address] [place] [address], [place] [address] Apr, [facility] [address] [id number] [address] [place] [address] Apr, [facility] [address] [id number] [address] [place] [address], [place] [address] Mar, [facility] [address] [id number] [address] [place] [address] Mar, [facility] [address] [id number] [address] [place] [address] Mar, [facility] [address] [id number] [address] [place] [address] Mar, [facility] [address] [id number] [address] [place] [address] Mar, [facility] [address] [id number] [address] [place] [address] Mar, [facility] [address] [id number] [address] [place] [address], [place] [address] Mar, [facility] [address] [id number] [address] [place] [address] Mar, [facility] [address] [id number] [address] [place] [address] Mar, [facility] [address] [id number] [address] [place] [address], [place] [address] 25 Feb, 2012 [facility] [address] [id number] [address] [place] [address], [place] [address] 16 Feb, 2012 [facility] [address] [id number] [address] [place] [address], [place] [address] 11 Feb, 2012 [facility] [address] [id number] [address] [place] [address], [place] [address] 25 Jan, 2012 [facility] [address] [id number] [address] [place] [address], [place] [address] Jan, [facility] [address] [id number] [address] [place] [address], [place] [address] Jan, [facility] [address] [id number] [address] [place] [address], [place] [address] 18 Jan, 2012 [facility] [address] [id number] [address] [place] [address], [place] [address] Jan, [facility] [address] [id number] [address] [place] [address], [place] [address] 17 Jan, 2012 [facility] [address] [id number] [address] [place] [address], [place] [address] 16 Jan, 2012 [facility] [address] [id number] [address] [place] [address], [place] [address] 15 Jan, 2012 [facility] [address] [id number] [address] [place] [address], [place] [address] 15 Jan, 2012 [facility] [address] [id number] [address] [place] [address], [place] [address] Jan, [facility] [address] [id number] [address] [place] [address], [place] [address] Dec, [facility] [address] [id number] [address] [place] [address], [place] [address] Dec, [facility] [address] [id number] [address] [place] [address], [place] [address] Dec, [facility] [address] [id number] [address] [place] [address], [place] [address] 17 Dec, 2011 [facility] [address] [id number] [address] [place] [address], [place] [address] Nov, [facility] [address] [id number] [address] [place] [address], [place] [address] 08 Nov, 2011 [facility] [address] [id number] [address] [place] [address], [place] [address] Nov, [facility] [address] [id number] [address] [place] [address], [place] [address] October, [facility] [address] [id number] [address] [place] [address], [place] [address] October, [facility] [address] [id number] [address] [place] [address], [place] [address] October, [facility] [address] [id number] [address] [place] [address], [place] [address] October, [facility] [address] [id number] [address] [place] [address], [place] [address] October, [facility] [address] [id number] [address] [place] [address], [place] [address] October, [facility] [address] [id number] [address] [place] [address], [place] [address] Aug, [facility] [address] [id number] [address] [place] [address], [place] [address] Mar, [facility] [address] [id number] [address] [place] [address], [place] [address] Nov, [facility] [address] [id number] [address] [place] [address], [place] [address] May, [facility] [address] [id number] [address] [place] [address], [place] [address] May, [facility] [address] [id number] [address] [place] [address] Apr, [facility] [address] [facility] [id number] [address] [place] [address] Mar, [facility] [address] [facility] [id number] [address] [place] [address] Mar, IMMUNIZATIONS No Known Immunizations SOCIAL HISTORY Never Assessed REASON FOR VISIT [place]MR[place] [place] OF CARE VITAL SIGNS MEDICATIONS Unknown [...]
--- OUTSIDE RECORDS SUMMARY | 2019-06-19 05:20 | XMS REPORT ---
Author Author Sydnie Huston Doctor Organization [facility] Address Unknown Phone Unavailable Care Team Providers Care Rehabilitation Liaison Name Role Phone Migration, Doctor Unavailable Unavailable PROBLEMS Type Condition ICD9-CM Code QEN29-EY Code Onset Dates Condition S tatus SNOMED Code Problem Hormone replacement therapy Z79.890 Ac tive 191550616 Problem Sensorineural hearing loss (SNHL) of both ears H90 .3 Active 405727498 Problem Abnormal CT scan, head R93.0 Active 757758227 Problem Arthralgia of hip, unspecified laterality M25.559 Active 51106183 Problem Bruising, spontaneous R23.3 Active 902247245 Problem Hypertension I10 Active 1766713 3 Problem Night sweats R61 Active 6730290 0 Problem Imbalance R26.89 Active 321159211 Problem Hammer toe of right foot M20.41 Activ e 190340678 Problem Bipolar 1 disorder, mixed F31.60 Acti ve 79698638 Problem Gastritis without bleeding, unspecified chronicity, unspecified gastritis type K29.70 Active 200068558 Problem Hearing loss, unspecified laterality H91.90 Active 90654268 Problem Ataxia R27.0 Active 13041816 Problem History of colon polyps Z86.010 Active 935646612 Problem Allergic rhinitis J30.9 Active 61 377216 Problem Hematuria, unspecified type R31.9 Ac tive 97227870 Problem Generalized anxiety disorder F41.1 A ctive 80589271 Problem Major depressive disorder, recurrent episode, moderate F33.1 Active 624191782 Problem Fibromyalgia M79.7 Active 0537967 7 Problem Bladder spasm N32.89 Active 534123 006 Problem Tobacco use disorder F17.200 Active 500333972 Problem Grief F43.20 Active 88703157 Problem Post menopausal syndrome N95.1 Activ e 264629794 Problem Hyperlipidemia, unspecified hyperlipidemia type E7 8.5 Active 40770273 Problem Other chronic pain G89.29 Active 8 2394313 Problem Acute left-sided low back pain with left-sided sciatica M54.42 Active 678561702 Problem Sciatica of left side M54.32 Active 91723681 Problem Plantar wart of right foot B07.0 Act mitchell [id number] Problem Slow transit constipation K59.01 Acti ve 45920116 ALLERGIES No Information ENCOUNTERS Encounter Location Date Diagnosis [facility] [address] [facility] [id number] [address] [place] [address] October, [facility] [address] [facility] [id number] [address] [place] [address] October, [facility] [address] [facility] [id number] [address] [place] [address] October, [facility] [address] [place] [id number] [address] [place] [phone] October, [facility] [address] [place] [id number] [address] [place] [address] Sep, [facility] [address] [place] [id number] [address] [place] [address] Sep, Encounter for Medicare annua l wellness exam Z00.00 ; Major depressive disorder, recurrent episode, moderate F33.1 ; Allergic rhinitis J30.9 ; Bipolar 1 disorder, mixed F31.60 ; Fibromyalgia M79.7 ; Hyperlipidemia, unspecified hyperlipidemia type E78.5 ; Hormone replacement therapy Z79.890 ; Encounter for screening for lung cancer Z12.2 and Tobacco use disorder F17.200 [facility] [address] [facility] [id number] [address] [place] [address] Sep, Bipolar 1 disorder, mixed F3 1.60 [facility] [address] [facility] [id number] [address] [place] [address] Sep, Other chronic pain G89.29 ; Hyperlipidemia, unspecified hyperlipidemia type E78.5 ; Breast cancer screening Z12.31 and Post menopausal syndrome N95.1 [facility] [address] [facility] [id number] [address] [place] [address] Sep, Bipolar 1 disorder, mixed F3 1.60 [facility] [address] [address] 15 Sep, 2018 Bipolar 1 disorder, mixed F3 1.60 ; Generalized anxiety disorder F41.1 and Tobacco use disorder F17.200 [place] [address] [address] Sep, Gastritis without bleeding, unspecified chronicity, unspecified gastritis type K29.70 [place] [address] [address] 08 Sep, 2018 Exercise counseling Z71.82 [place] [address] [address] Aug, Exercise counseling Z71.82 [place] [address] [address] Aug, Bipolar 1 disorder, mixed F3 1.60 [place] [address] [address] Aug, Exercise counseling Z71.82 [place] [address] [address] Aug, Bipolar 1 disorder, mixed F3 1.60 [place] [address] [address] Aug, Gastritis without bleeding, unspecified chronicity, unspecified gastritis type K29.70 ; Tobacco abuse Z72.0 ; Generalized anxiety disorder F41.1 and Weight gain R63.5 [place] [address] [address] 14 Aug, 2018 Bipolar 1 disorder, mixed F3 1.60 ; Generalized anxiety disorder F41.1 and Tobacco use disorder F17.200 [place] [address] [address] Jul, Bipolar 1 disorder, mixed F3 1.60 [place] [address] [address] Jul, [place] [address] [place] [id number] [address] [place] [address] 18 Jul, 2018 Bipolar 1 disorder, mixed F3 1.60 [facility] [address] [facility] [id number] [address] [place] [address] 11 Jul, 2018 Allergic rhinitis J30.9 ; Ma darion depressive disorder, recurrent episode, moderate F33.1 and Tobacco 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 [facility] [address] [facility] [id number] [address] [place] [address] Jun, [facility] [address] [facility] [id number] [address] [place] [address] Jun, [facility] [address] [facility] [id number] [address] [place] [address] Jun, Bipolar 1 disorder, mixed F3 1.60 [place] [address] [place] [id number] [address] [place] [address] Jun, Bipolar 1 disorder, mixed F3 1.60 [place] [address] [facility] [id number] [address] [place] [address] Jun, Bipolar 1 disorder, mixed F3 1.60 [place] [address] [facility] [id number] [address] [place] [address] Jun, Generalized anxiety disorder F41.1 ; Tobacco abuse Z72.0 and Major depressive disorder, recurrent episode, moderate F33.1 [place] [address] [facility] [id number] [address] [place] [address] May, Bipolar 1 disorder, mixed F3 1.60 [place] [address] [facility] [id number] [address] [place] [address] May, Bipolar 1 disorder, mixed F3 1.60 and Generalized anxiety disorder F41.1 [facility] [address] [facility] [id number] [address] [place] [address] May, Bipolar 1 disorder, mixed F3 1.60 [place] [address] [place] [id number] [address] [place] [address] May, Allergic rhinitis J30.9 [facility] [address] [place] [id number] [address] [place] [address] May, Bipolar 1 disorder, mixed F3 1.60 [facility] [address] [place] [id number] [address] [place] [address] May, [facility] [address] [place] [id number] [address] [place] [address] Apr, Allergic rhinitis J30.9 ; Dy sfunction of both eustachian tubes H69.83 ; History of bladder surgery Z98.890 and Cervicalgia M54.2 [facility] [address] [place] [id number] [address] [place] [address] Mar, Bipolar 1 disorder, mixed F3 1.60 [place] [address] [place] [id number] [address] [place] [address] Mar, [facility] [address] [place] [id number] [place] [address] Mar, Slow transit constipation K5 9.01 ; Encounter for immunization Z23 and Generalized anxiety disorder F41.1 [facility] [address] [place] [id number] [address] [place] [address] Feb, Bipolar 1 disorder, mixed F3 1.60 [facility] [address] [place] [id number] [address] [place] [address] Feb, Allergic rhinitis J30.9 [facility] [address] [place] [id number] [address] [place] [address] Feb, Bipolar 1 disorder, mixed F3 1.60 [facility] [address] [place] [id number] [address] [place] [address] Feb, Bipolar 1 disorder, mixed F3 1.60 and Generalized anxiety disorder F41.1 [facility] [address] [place] [id number] [address] [place] [address] Feb, Bipolar 1 disorder, mixed F3 1.60 [facility] [address] [place] [id number] [place] [address] Feb, Allergic rhinitis J30.9 [place] [address] [place] [id number] [address] [place] [address] Feb, [facility] [address] [place] [id number] [address] [place] [address] Jan, Bipolar 1 disorder, mixed F3 1.60 [place] [address] [place] [id number] [address] [place] [address] Jan, Low back pain M54.5 ; Hyperl ipidemia, unspecified hyperlipidemia type E78.5 and Bipolar 1 disorder, mixed F31.60 [place] [address] [place] [id number] [address] [place] [address] Jan, Bipolar 1 disorder, mixed F3 1.60 [place] [address] [address] Jan, Bipolar 1 disorder, mixed F3 1.60 [place] [address] [place] [id number] [address] [place] [address] Jan, Bipolar 1 disorder, mixed F3 1.60 [place] [address] [place] [id number] [address] [place] [address] Jan, Bipolar 1 disorder, mixed F3 1.60 [place] [address] [place] [id number] [address] [place] [address] Dec, Bipolar 1 disorder, mixed F3 1.60 ; Generalized anxiety disorder F41.1 and Other usp (current) drug therapy Z79.899 [place] [address] [facility] [id number] [address] [place] [address] Dec, Other usp (current) dr ug therapy Z79.899 [place] [address] [facility] [id number] [address] [place] [address] Dec, Bipolar 1 disorder, mixed F3 1.60 [place] [address] [place] [id number] [address] [place] [address] Dec, Bipolar 1 disorder, mixed F3 1.60 [facility] [address] [place] [id number] [place] [address] Nov, Bipolar 1 disorder, mixed F3 1.60 [facility] [address] [place] [id number] [address] [place] [address] Nov, Bipolar 1 disorder, mixed F3 1.60 [place] [address] [address] Nov, Bipolar 1 disorder, mixed F3 1.60 [place] [address] [place] [id number] [place] [address] Nov, Allergic rhinitis J30.9 [place] [address] [place] [id number] [place] [address] Nov, Allergic rhinitis J30.9 [place] [address] [address] Nov, [facility] [address] [address] Nov, Bipolar 1 disorder, mixed F3 1.60 [place] [address] [address] Nov, Fibromyalgia M79.7 and Aller gic rhinitis J30.9 [place] [address] [place] [id number] [address] [place] [address] October, Bipolar 1 disorder, mixed F3 1.60 [facility] [address] [place] [id number] [address] [place] [address] October, Acute nasopharyngitis J00 [facility] [address] [place] [id number] [address] [place] [address] October, Bitten or stung by nonvenomo us insect and other nonvenomous arthropods, initial encounter W57.XXXA and Insect bite (nonvenomous) of abdominal wall, initial encounter S30.861A [place] [address] [facility] [id number] [address] [place] [address] October, Insect bite (nonvenomous) of abdominal wall, initial encounter S30.861A ; Bitten or stung by nonvenomous insect and other nonvenomous arthropods, initial encounter W57.XXXA ; Allergic rhinitis J30.9 and Low back pain M54.5 [facility] [address] [facility] [id number] [address] [place] [address] October, Bipolar 1 disorder, mixed F3 1.60 [facility] [address] [facility] [id number] [address] [place] [address] October, [facility] [address] [facility] [id number] [address] [place] [address] October, [facility] [address] [place] [id number] [address] [place] [address] October, Bipolar 1 disorder, mixed F3 1.60 [facility] [address] [facility] [id number] [address] [place] [address] Sep, Bipolar 1 disorder, mixed F3 1.60 [facility] [address] [place] [id number] [address] [place] [address] Sep, Other chronic pain G89.29 [facility] [address] [place] [id number] [address] [place] [address] Sep, [facility] [address] [facility] [id number] [address] [place] [address] Sep, Bipolar 1 disorder, mixed F3 1.60 [facility] [address] [facility] [id number] [address] [place] [address] Sep, Allergic rhinitis J30.9 and Sciatica of left side M54.32 [facility] [address] [facility] [id number] [address] [place] [address] Sep, Bipolar 1 disorder, mixed F3 1.60 [facility] [address] [facility] [id number] [address] [place] [address] Sep, Bipolar 1 disorder, mixed F3 1.60 and Generalized anxiety disorder F41.1 [facility] [address] [facility] [id number] [address] [place] [address] Aug, [facility] [address] [facility] [id number] [address] [place] [phone] Aug, Bipolar 1 disorder, mixed F3 1.60 [facility] [address] [facility] [id number] [address] [place] [address] Aug, Bipolar 1 disorder, mixed F3 1.60 [facility] [address] [facility] [id number] [address] [place] [address] Aug, [facility] [address] [facility] [id number] [address] [place] [address] Aug, Generalized anxiety disorder F41.1 [facility] [address] [place] [id number] [address] [place] [address] Aug, Bipolar 1 disorder, mixed F3 1.60 [facility] [address] [facility] [id number] [address] [place] [address] Aug, Plantar wart of right foot B 07.0 [facility] [address] [facility] [id number] [address] [place] [address] Aug, Bipolar 1 disorder, mixed F3 1.60 [facility] [address] [facility] [id number] [address] [place] [address] Jul, Bipolar 1 disorder, mixed F3 1.60 [facility] [address] [facility] [id number] [address] [place] [address] Jul, [facility] [address] [facility] [id number] [address] [place] [address] 14 Jul, 2017 Bipolar 1 disorder, mixed F3 1.60 [facility] [address] [facility] [id number] [address] [place] [address] 09 Jul, 2017 Generalized anxiety disorder F41.1 [facility] [address] [facility] [id number] [address] [place] [address] 07 Jul, 2017 Bipolar 1 disorder, mixed F3 1.60 [facility] [address] [facility] [id number] [address] [place] [address] 07 Jul, 2017 Acute left-sided low back pa in with left-sided sciatica M54.42 [facility] [address] [facility] [id number] [address] [place] [address] 05 Jul, 2017 Coccydynia M53.3 [facility] [address] [facility] [id number] [address] [place] [address] Jun, Bipolar 1 disorder, mixed F3 1.60 [facility] [address] [facility] [id number] [address] [place] [address] Jun, Acute nasopharyngitis J00 [place] [address] [place] [id number] [address] [place] [address] Jun, Bipolar 1 disorder, mixed F3 1.60 [place] [address] [place] [id number] [address] [place] [address] Jun, Fibromyalgia M79.7 [place] [address] [facility] [id number] [address] [place] [address] Jun, Bipolar 1 disorder, mixed F3 1.60 [place] [address] [place] [id number] [address] [place] [address] Jun, Fibromyalgia M79.7 and Bipol ar 1 disorder, mixed F31.60 [facility] [address] [facility] [id number] [address] [place] [address] May, Bipolar 1 disorder, mixed F3 1.60 ; Generalized anxiety disorder F41.1 and Other usp (current) drug therapy Z79.899 [facility] [address] [facility] [id number] [address] [place] [address] May, Bipolar 1 disorder, mixed F3 1.60 [facility] [address] [facility] [id number] [address] [place] [address] 14 May, 2017 Cough R05 and Body aches R52 [facility] [address] [address] 10 May, 2017 Bladder spasm N32.89 and Acu te cystitis without hematuria N30.00 [facility] [address] [address] 07 May, 2017 Bipolar 1 disorder, mixed F3 1.60 [facility] [address] [address] 30 Apr, 2017 [place] [address] [address] Apr, Major depressive disorder, r ecurrent episode, moderate F33.1 and Encounter for immunization Z23 [place] [address] [address] Apr, Bipolar 1 disorder, mixed F3 1.60 [place] [address] [address] 22 Apr, 2017 Bipolar 1 disorder, mixed F3 1.60 [place] [address] [address] 16 Apr, 2017 Bipolar 1 disorder, mixed F3 1.60 [place] [address] [address] 13 Apr, 2017 Yeast vaginitis B37.3 [place] [address] [address] 09 Apr, 2017 Bipolar 1 disorder, mixed F3 1.60 [facility] [address] [address] 07 Apr, 2017 Cellulitis L03.[address] for immunization Z23 [facility] [address] [address] 02 Apr, 2017 Bipolar 1 disorder, mixed F3 1.60 [place] [address] [address] Mar, Bipolar 1 disorder, mixed F3 1.60 [place] [address] [place] [address] Mar, Bipolar 1 disorder, mixed F3 1.60 [place] [address] [address] Mar, Imbalance R26.89 and Encount er for immunization Z23 [place] [address] [address] Mar, Generalized anxiety disorder F41.1 [place] [address] [place] [address] Mar, Bipolar 1 disorder, mixed F3 1.60 [place] [address] [address] Mar, Generalized anxiety disorder F41.1 [place] [address] [address] Mar, Bipolar 1 disorder, mixed F3 1.60 [place] [address] [place] [address] Mar, Bipolar 1 disorder, mixed F3 1.60 [place] [address] [address] Feb, Bipolar 1 disorder, mixed F3 1.60 [place] [address] [address] Feb, Bipolar 1 disorder, mixed F3 1.60 and Generalized anxiety disorder F41.1 [place] [address] [place] [id number] Feb, Gastritis without bleeding, unspecified chronicity, unspecified gastritis type K29.70 ; Hammer toe of right foot M20.41 and Other viral warts B07.8 [place] [address] [address] Feb, Bipolar 1 disorder, mixed F3 1.60 [facility] [address] [facility] [id number] [address] [place] [id number] 13 Feb, 2017 Bipolar 1 disorder, mixed F3 1.60 [facility] [address] [facility] [id number] [address] [place] [address] 05 Feb, 2017 Bipolar 1 disorder, mixed F3 1.60 [facility] [address] [facility] [id number] [address] [place] [address] Jan, Encounter for screening mamm ogram for breast cancer Z12.31 ; Other viral warts B07.8 and Allergic rhinitis J30.9 [facility] [address] [facility] [id number] [address] [place] [address] Jan, Bipolar 1 disorder, mixed F3 1.60 [facility] [address] [facility] [id number] [address] [place] [address] Jan, Bipolar 1 disorder, mixed F3 1.60 [facility] [address] [facility] [id number] [address] [place] [address] 14 Jan, 2017 [facility] [address] [facility] [id number] [address] [place] [address] Jan, Bipolar 1 disorder, mixed F3 1.60 [facility] [address] [facility] [id number] [address] [place] [address] Jan, Bipolar 1 disorder, mixed F3 1.60 [facility] [address] [facility] [id number] [address] [place] [address] Jan, Allergic rhinitis J30.9 ; He maturia R31.9 and Colon cancer screening Z12.11 [facility] [address] [facility] [id number] [address] [place] [address] Dec, Bipolar 1 disorder, mixed F3 1.60 [facility] [address] [facility] [id number] [address] [place] [address] 18 Dec, 2016 Bipolar 1 disorder, mixed F3 1.60 ; Generalized anxiety disorder F41.1 and 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 [facility] [address] [facility] [id number] [address] [place] [address] Dec, Bipolar 1 disorder, mixed F3 1.60 [facility] [address] [facility] [id number] [address] [place] [address] Dec, Bipolar 1 disorder, mixed F3 1.60 [facility] [address] [facility] [id number] [address] [place] [address] Dec, Bipolar 1 disorder, mixed F3 1.60 [facility] [address] [facility] [id number] [address] [place] [address] Dec, Low back pain M54.5 and Recu rrent urinary tract infection N39.0 [place] [address] [place] [id number] [address] [place] [address] Nov, Bipolar 1 disorder, mixed F3 1.60 [place] [address] [facility] [id number] [address] [place] [address] Nov, Bipolar 1 disorder, mixed F3 1.60 [place] [address] [place] [id number] [address] [place] [address] Nov, Bipolar 1 disorder, mixed F3 1.60 [facility] [address] [place] [id number] [address] [place] [id number] Nov, Bipolar 1 disorder, mixed F3 1.60 [place] [address] [address] [facility] [id number] [address] [place] [id number] Nov, [facility] [address] [facility] [id number] [address] [place] [id number] Nov, Anesthesia of skin R20.0 ; F requent UTI N39.0 ; Tobacco abuse Z72.0 and Colon cancer screening Z12.11 [facility] [address] [place] [id number] [address] [place] [id number] Nov, Bipolar 1 disorder, mixed F3 1.60 [place] [address] [id number] [place] [phone] October, Bipolar 1 disorder, mixed F3 1.60 [facility] [address] [place] [id number] October, Bipolar 1 disorder, mixed F3 1.60 [place] [address] [id number] October, Bipolar 1 disorder, mixed F3 1.60 [place] [address] [address] [address] [address] October, Bipolar 1 disorder, mixed F3 1.60 [place] [address] [address] October, Bipolar 1 disorder, mixed F3 1.60 [place] [address] [address] October, Cervicalgia M54.2 and Bipola r 1 disorder, mixed F31.60 [place] [address] [place] [id number] [place] [address] October, Hypertension I10 ; Hyperlipi demia, unspecified hyperlipidemia type E78.5 and Family history of thyroid disease Z83.49 [place] [address] [address] October, [place] [address] [address] October, Hypertension I10 ; Hyperlipi demia, unspecified hyperlipidemia type E78.5 and Family history of thyroid problem Z83.49 [place] [address] [place] [id number] [place] [address] October, Bipolar 1 disorder, mixed F3 1.60 [place] [address] [place] [id number] [place] [address] Sep, Bipolar 1 disorder, mixed F3 1.60 [place] [address] [address] Sep, Bipolar 1 disorder, mixed F3 1.60 [facility] [address] [place] [id number] [address] [place] [address] Sep, Bipolar 1 disorder, mixed F3 1.60 [facility] [address] [place] [id number] [address] [place] [address] Sep, History of colon polyps Z86. 010 and Hematochezia K92.1 [facility] [address] [place] [id number] [place] [address] Sep, Major depressive disorder, r ecurrent episode, moderate F33.1 [facility] [address] [place] [id number] [place] [address] Sep, Bipolar 1 disorder, mixed F3 1.60 [facility] [address] [place] [id number] [place] [address] Aug, Hot flashes due to menopause N95.1 [facility] [address] [place] [id number] [address] [place] [address] Aug, Bipolar 1 disorder, mixed F3 1.60 [facility] [address] [place] [id number] [address] [place] [address] Aug, [facility] [address] [place] [id number] [address] [place] [address] Aug, Bipolar 1 disorder, mixed F3 1.60 [facility] [address] [place] [id number] [place] [address] Aug, Bipolar 1 disorder, mixed F3 1.60 [facility] [address] [place] [id number] [place] [address] Aug, Hot flashes due to menopause N95.1 ; Cervicalgia M54.2 and Ataxia R27.0 [facility] [address] [place] [id number] [address] [place] [address] Jul, Bipolar 1 disorder, mixed F3 1.60 [facility] [address] [address] Jul, Bipolar 1 disorder, mixed F3 1.60 [place] [address] [place] [address] Jul, Bipolar 1 disorder, mixed F3 1.60 [place] [address] [address] Jul, Bipolar 1 disorder, mixed F3 1.60 [place] [address] [address] Jul, Bipolar 1 disorder, mixed F3 1.60 [place] [address] [place] [address] 08 Jul, 2016 Cervicalgia M54.2 ; Tremor R 25.1 ; Hearing abnormally acute, unspecified laterality H93.239 ; Alopecia L65.9 ; Encounter for immunization Z23 and Family history of thyroid disease Z83.49 [place] [address] [address] Jul, Bipolar 1 disorder, mixed F3 1.60 [place] [address] [address] Jun, [place] [address] [address] Jun, Hearing disorder, unspecifie d laterality H93.299 [place] [address] [address] Jun, Bipolar 1 disorder, mixed F3 1.60 [place] [address] [address] Jun, Bipolar 1 disorder, mixed F3 1.60 [place] [address] [address] Jun, Allergic rhinitis J30.9 [place] [address] [address] Jun, Bipolar 1 disorder, mixed F3 1.60 [facility] [address] [id number] [address] [place] [address] Jun, Bipolar 1 disorder, mixed F3 1.60 [facility] [address] [id number] [address] [place] [address] Jun, Allergic rhinitis J30.9 [facility] [address] [id number] [address] [place] [address] Jun, Allergic rhinitis J30.9 [facility] [address] [id number] [address] [place] [address] Jun, Bipolar 1 disorder, mixed F3 1.60 [facility] [address] [id number] [address] [place] [address] May, Bipolar 1 disorder, mixed F3 1.60 [facility] [address] [id number] [address] [place] [address] May, Bipolar 1 disorder, mixed F3 1.60 [facility] [address] [id number] [address] [place] [address] May, [facility] [address] [id number] [address] [place] [address] May, Bipolar 1 disorder, mixed F3 1.60 [facility] [address] [id number] [address] [place] [address] May, Bipolar 1 disorder, mixed F3 1.60 [facility] [address] [id number] [address] [place] [address] May, [facility] [address] [id number] [address] [place] [address] May, [facility] [address] [id number] [address] [place] [address] May, [facility] [address] [id number] [address] [place] [address] May, Abdominal pain, unspecified location R10.9 [facility] [address] [place] [id number] [address] [place] [address] May, [facility] [address] [address] Apr, Hematuria R31.9 ; Ataxia R27 .0 and Hearing loss, unspecified laterality H91.90 [facility] [address] [address] Apr, Bipolar 1 disorder, mixed F3 1.60 [facility] [address] [address] Apr, Acute effusion of both middl e ears H65.193 [facility] [address] [address] Apr, Hematuria R31.9 and Pyelonep hritis N12 [place] [address] [place] [id number] [address] [place] [address] Apr, [facility] [address] [address] Mar, Bipolar 1 disorder, mixed F3 1.60 [facility] [address] [address] Mar, [facility] [address] [address] Mar, Bipolar 1 disorder, mixed F3 1.60 [place] [address] [place] [id number] [address] [place] [address] Mar, Bipolar 1 disorder, mixed F3 1.60 [place] [address] [address] Mar, Encounter for immunization Z 23 and Gastritis without bleeding, unspecified chronicity, unspecified gastritis type K29.70 [facility] [address] [place] [id number] [address] [place] [address] Mar, Bipolar 1 disorder, mixed F3 1.60 and Grief F43.20 [place] [address] Mar, Gastritis without bleeding, unspecified chronicity, unspecified gastritis type K29.70 [place] [address] Mar, Bipolar 1 disorder, mixed F3 1.60 [place] [address] Mar, Gastritis without bleeding, unspecified chronicity, unspecified gastritis type K29.70 [place] [address] Mar, [place] [address] Feb, Bipolar 1 disorder, mixed F3 1.60 [place] [address] Feb, Bipolar 1 disorder, mixed F3 1.60 and Grief F43.20 [place] [address] Feb, Gastritis without bleeding, unspecified chronicity, unspecified gastritis type K29.70 [place] [address] [place] [address] 14 Feb, 2016 Bipolar 1 disorder, mixed F3 1.60 [facility] [address] [place] [id number] [place] [address] 09 Feb, 2016 Gastroesophageal reflux dise ase, esophagitis presence not specified K21.9 [place] [address] [place] [address] Jan, Bipolar 1 disorder, mixed F3 1.60 [facility] [address] [place] [id number] [address] [place] [address] Jan, Bipolar 1 disorder, mixed F3 1.60 and Unsteady gait R26.81 [facility] [address] [facility] [id number] [address] [place] [address] Jan, Bipolar 1 disorder, mixed F3 1.60 [place] [address] [facility] [id number] [address] [place] [address] Jan, Bipolar 1 disorder, mixed F3 1.60 and 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 [facility] [address] [facility] [id number] [address] [place] [address] Jan, Bipolar 1 disorder, mixed F3 1.60 [place] [address] [facility] [id number] [address] [place] [address] Jan, Bipolar 1 disorder, mixed F3 1.60 [place] [address] [place] [id number] [place] [address] Jan, Bipolar 1 disorder, mixed F3 1.60 ; Grief F43.20 and 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 [place] [address] [facility] [id number] [address] [place] [address] Jan, Bipolar 1 disorder, mixed F3 1.60 [place] [address] [place] [id number] [place] [address] Dec, [place] [address] [place] [id number] [place] [address] Dec, Bipolar 1 disorder, mixed F3 1.60 ; Vitamin D deficiency, unspecified E55.9 ; H/O allergic rhinitis Z87.09 ; Other chronic pain G89.29 and Dorsalgia, unspecified M54.9 [place] [address] [facility] [id number] [address] [place] [address] Dec, [place] [address] [place] [id number] [place] [address] Dec, Bipolar 1 disorder, mixed F3 1.60 [place] [address] [place] [id number] [place] [address] Dec, Major depressive disorder, r ecurrent episode, moderate F33.1 [facility] [address] [facility] [id number] [address] [place] [address] Dec, Major depressive disorder, r ecurrent episode, moderate F33.1 [place] [address] [facility] [id number] [address] [place] [address] Nov, [facility] [address] [place] [id number] [place] [address] Nov, Bipolar 1 disorder, mixed F3 1.60 [place] [address] [facility] [id number] [address] [place] [address] Nov, Major depressive disorder, r ecurrent episode, moderate F33.1 [place] [address] [place] [id number] [place] [address] Nov, Cervicalgia M54.2 ; Arthralg ia of hip, unspecified laterality M25.559 ; Allergic rhinitis J30.9 and Hormone replacement therapy Z79.890 [facility] [address] [place] [address] Nov, Other seasonal allergic rhin itis J30.2 [place] [address] [place] [address] October, Major depressive disorder, r ecurrent episode, moderate F33.1 [facility] [address] [place] [address] October, Major depressive disorder, r ecurrent episode, moderate F33.1 and Arthralgia of hip, unspecified laterality M25.559 [place] [address] [place] [address] October, Grief F43.20 ; Hypertension I10 ; Hyperlipidemia, unspecified hyperlipidemia type E78.5 ; Other chronic pain G89.29 and Allergic rhinitis, unspecified allergic rhinitis type J30.9 [facility] [address] [place] [address] October, Major depressive disorder, r ecurrent episode, moderate F33.1 [facility] [address] [facility] [id number] [address] [place] [address] Sep, Major depressive disorder, r ecurrent episode, moderate F33.1 [facility] [address] [facility] [id number] [address] [place] [address] Sep, [facility] [address] [facility] [id number] [address] [place] [address] Sep, Major depressive disorder, r ecurrent episode, moderate F33.1 [place] [address] [facility] [id number] [address] [place] [address] Sep, Grief F43.20 [facility] [address] [facility] [id number] [address] [place] [address] Aug, Major depressive disorder, r ecurrent episode, moderate F33.1 [place] [address] [place] [id number] [place] [address] Aug, Bipolar 1 disorder, mixed F3 1.60 [place] [address] [place] [id number] [place] [address] Aug, Allergic rhinitis J30.9 ; Ce rvicalgia M54.2 and Low back pain M54.5 [facility] [address] [facility] [id number] [address] [place] [address] Aug, Major depressive disorder, r ecurrent episode, moderate F33.1 [facility] [address] [facility] [id number] [address] [place] [address] Aug, Sinusitis J32.9 and Tobacco 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 [facility] [address] [facility] [id number] [address] [place] [address] Aug, [facility] [address] [facility] [id number] [address] [place] [address] Aug, Depressive disorder, not els ewhere classified F32.9 ; Hormone replacement therapy Z79.[address] scan, head R93.0 [facility] [address] [id number] [address] [place] [address] 08 Aug, 2015 Major depressive disorder, r ecurrent episode, moderate F33.1 [facility] [address] [id number] [address] [place] [address] Jul, Major depressive disorder, r ecurrent episode, moderate F33.1 [facility] [address] [id number] [address] [place] [address] Jul, Abdominal pain R10.9 and Hyp ertension I10 [facility] [address] [id number] [address] [place] [address] Jul, [facility] [address] [id number] [address] [place] [address] Jul, Major depressive disorder, r ecurrent episode, moderate F33.1 [facility] [address] [id number] [address] [place] [address] Jul, [facility] [address] [id number] [address] [place] [address] Jul, [facility] [address] [id number] [address] [place] [address] Jun, [facility] [address] [id number] [address] [place] [address] Jun, Depressive disorder, not els ewhere classified F32.9 [facility] [address] [id number] [address] [place] [address] Jun, [facility] [address] [id number] [address] [place] [address] Jun, [facility] [address] [facility] [id number] [address] [place] [address] Jun, Arthralgia of hip, unspecifi ed laterality M25.559 ; Bruising, spontaneous R23.3 and Night sweats R61 [facility] [address] [id number] [address] [place] [address] Jun, [facility] [address] [id number] [address] [place] [address] Jun, [facility] [address] [id number] [address] [place] [address] May, [facility] [address] [id number] [address] [place] [address] May, Myalgia M79.1 and Screening, lipid Z13.220 [facility] [address] [facility] [id number] [address] [place] [address] Apr, Status post cervical spinal fusion Z98.1 ; Fibromyalgia M79.7 and Unsteady gait R26.81 [facility] [address] [id number] [address] [place] [address] Nov, [facility] [address] [id number] [address] [place] [address] Nov, [facility] [address] [id number] [address] [place] [address] October, [facility] [address] [facility] [id number] [address] [place] [address] October, [facility] [address] [id number] [address] [place] [address] October, [facility] [address] [id number] [address] [place] [address] October, [facility] [address] [facility] [id number] [address] [place] [address] October, [facility] [address] [facility] [id number] [address] [place] [address] October, Dysuria 788.1 ; Nausea 787.0 2 and Urinary tract infection 599.0 [facility] [address] [id number] [address] [place] [address] 14 Sep, 2014 [facility] [address] [id number] [facility] [place] [address] 13 Sep, 2014 [facility] [address] [id number] [address] [place] [address], [place] [address] 25 Aug, 2014 [facility] [address] [id number] [address] [place] [address], [place] [address] 25 Aug, 2014 [facility] [address] [id number] [address] [place] [address], [place] [address] 24 Aug, 2014 [facility] [address] [id number] [address] [place] [address], [place] [address] 24 Aug, 2014 [facility] [address] [id number] [address] [place] [address], [place] [address] 23 Aug, 2014 [facility] [address] [id number] [address] [place] [address], [place] [address] 19 Aug, 2014 [facility] [address] [id number] [address] [place] [address], [place] [address] 19 Aug, 2014 [facility] [address] [id number] [address] [place] [address], [place] [address] 19 Aug, 2014 [facility] [address] [id number] [address] [place] [address], [place] [address] 19 Aug, 2014 [facility] [address] [id number] [address] [place] [address], [place] [address] 18 Aug, 2014 [facility] [address] [id number] [address] [place] [address], [place] [address] 18 Aug, 2014 [facility] [address] [id number] [address] [place] [address], [place] [address] 13 Aug, 2014 [facility] [address] [id number] [address] [place] [address], [place] [address] 13 Aug, 2014 [facility] [address] [id number] [address] [place] [address], [place] [address] 11 Aug, 2014 [facility] [address] [id number] [address] [place] [address], [place] [address] Aug, [facility] [address] [id number] [address] [place] [address], [place] [address] Aug, 2014 [facility] [address] [id number] [address] [place] [address], [place] [address] Aug, 2014 [facility] [address] [id number] [address] [place] [address], [place] [address] Aug, 2014 [facility] [address] [id number] [address] [place] [address], [place] [address] Aug, 2014 [facility] [address] [id number] [address] [place] [address], [place] [address] Aug, [facility] [address] [id number] [address] [place] [address], [place] [address] Aug, [facility] [address] [id number] [address] [place] [address], [place] [address] Aug, [facility] [address] [id number] [address] [place] [address], [place] [address] Jul, [facility] [address] [id number] [address] [place] [address], [place] [address] Jul, [facility] [address] [id number] [address] [place] [address], [place] [address] Jul, [facility] [address] [id number] [address] [place] [address], [place] [address] Jul, 2014 [facility] [address] [id number] [address] [place] [address], [place] [address] Jul, [facility] [address] [id number] [address] [place] [address], [place] [address] Jul, [facility] [address] [id number] [address] [place] [address], [place] [address] Jul, 2014 [facility] [address] [id number] [address] [place] [address], [place] [address] Jul, [facility] [address] [id number] [address] [place] [address], [place] [address] Jul, [facility] [address] [id number] [address] [place] [address], [place] [address] Jul, [facility] [address] [id number] [address] [place] [address], [place] [address] Jul, [facility] [address] [id number] [address] [place] [address], [place] [address] Jul, 2014 [facility] [address] [id number] [address] [place] [address], [place] [address] Jul, [facility] [address] [id number] [address] [place] [address], [place] [id number] Jul, [facility] [address] [id number] [address] [place] [address], [place] [address] Jun, [facility] [address] [id number] [address] [place] [address], [place] [id number] Jun, [facility] [address] [id number] [address] [place] [address], [place] [id number] Jun, [facility] [address] [id number] [address] [place] [address], [place] [address] Jun, [facility] [address] [id number] [address] [place] [address], [place] [id number] Jun, [facility] [address] [id number] [address] [place] [address], [place] [address] Jun, [facility] [address] [id number] [address] [place] [address], [place] [id number] May, [facility] [address] [id number] [address] [place] [address], [place] [address] May, [facility] [address] [id number] [address] [place] [address], [place] [id number] May, [facility] [address] [id number] [address] [place] [address], [place] [address] May, [facility] [address] [id number] [address] [place] [address], [place] [address] May, [facility] [address] [id number] [address] [place] [address], [place] [id number] May, [facility] [address] [id number] [address] [place] [address], [place] [id number] Apr, [facility] [address] [id number] [address] [place] [address], [place] [id number] Apr, [facility] [address] [id number] [address] [place] [address], [place] [id number] Apr, [facility] [address] [id number] [address] [place] [address], [place] [address] Apr, [facility] [address] [id number] [address] [place] [address], [place] [address] Apr, [facility] [address] [id number] [address] [place] [address], [place] [id number] Apr, [facility] [address] [id number] [address] [place] [address], [place] [address] Mar, [facility] [address] [id number] [address] [place] [address], [place] [address] Mar, [facility] [address] [id number] [address] [place] [address], [place] [address] Mar, [facility] [address] [id number] [address] [place] [address], [place] [address] Mar, [facility] [address] [id number] [address] [place] [address], [place] [address] Mar, [facility] [address] [id number] [address] [place] [address], [place] [address] Mar, [facility] [address] [id number] [address] [place] [address], [place] [address] Mar, [facility] [address] [id number] [address] [place] [address], [place] [address] Mar, [facility] [address] [id number] [address] [place] [address], [place] [address] Mar, [facility] [address] [id number] [address] [place] [address], [place] [address] Mar, [facility] [address] [id number] [address] [place] [address], [place] [address] Mar, [facility] [address] [id number] [address] [place] [address], [place] [address] Mar, [facility] [address] [id number] [address] [place] [address], [place] [address] 30 Feb, 2014 [facility] [address] [id number] [address] [place] [address], [place] [address] 29 Feb, 2014 [facility] [address] [id number] [address] [place] [address], [place] [address] 29 Feb, 2014 [facility] [address] [id number] [address] [place] [address], [place] [address] 23 Feb, 2014 [facility] [address] [id number] [address] [place] [address], [place] [address] 23 Feb, 2014 [facility] [address] [id number] [address] [place] [address], [place] [address] 08 Feb, 2014 [facility] [address] [id number] [address] [place] [address], [place] [address] 08 Feb, 2014 [facility] [address] [id number] [address] [place] [address], [place] [address] Jan, [facility] [address] [id number] [address] [place] [address], [place] [address] Jan, [facility] [address] [id number] [address] [place] [address], [place] [address] Jan, [facility] [address] [id number] [address] [place] [address], [place] [address] Dec, [facility] [address] [id number] [address] [place] [address], [place] [address] Dec, [facility] [address] [id number] [address] [place] [address], [place] [address] Dec, [facility] [address] [id number] [address] [place] [address], [place] [address] Dec, [facility] [address] [id number] [address] [place] [address], [place] [address] Sep, [facility] [address] [id number] [address] [place] [address], [place] [address] Sep, [facility] [address] [id number] [address] [place] [address], [place] [address] Sep, [facility] [address] [id number] [address] [place] [address], [place] [address] Sep, [facility] [address] [id number] [address] [place] [address], [place] [address] Sep, [facility] [address] [id number] [address] [place] [address], [place] [address] Sep, [facility] [address] [id number] [address] [place] [address], [place] [address] Sep, [facility] [address] [id number] [address] [place] [address], [place] [address] Sep, [facility] [address] [id number] [address] [place] [address], [place] [address] Aug, [facility] [address] [id number] [address] [place] [address], [place] [address] Aug, [facility] [address] [id number] [address] [place] [address], [place] [address] May, [facility] [address] [id number] [address] [place] [address], [place] [address] May, [facility] [address] [id number] [address] [place] [address], [place] [address] Apr, [facility] [address] [id number] [address] [place] [address], [place] [address] Apr, [facility] [address] [id number] [address] [place] [address], [place] [address] Apr, [facility] [address] [id number] [address] [place] [address], [place] [address] Apr, [facility] [address] [id number] [address] [place] [address], [place] [address] Apr, [facility] [address] [id number] [address] [place] [address], [place] [address] Apr, [facility] [address] [id number] [address] [place] [address], [place] [address] May, [facility] [address] [id number] [address] [place] [address], [place] [address] 18 May, 2012 [facility] [address] [id number] [address] [place] [address], [place] [address] 15 May, 2012 [facility] [address] [id number] [address] [place] [address], [place] [address] 15 May, 2012 [facility] [address] [id number] [address] [place] [address], [place] [address] 13 May, 2012 [facility] [address] [id number] [address] [place] [address], [place] [address] May, [facility] [address] [id number] [address] [place] [address], [place] [address] Apr, [facility] [address] [id number] [address] [place] [address], [place] [address] Apr, [facility] [address] [id number] [address] [place] [address], [place] [address] 08 Apr, 2012 [facility] [address] [id number] [address] [place] [address], [place] [address] 08 Apr, 2012 [facility] [address] [id number] [address] [place] [address], [place] [address] 08 Apr, 2012 [facility] [address] [id number] [address] [place] [id number] 08 Apr, 2012 [facility] [address] [id number] [address] [place] [address], [place] [address] Apr, [facility] [address] [id number] [address] [place] [address] Apr, [facility] [address] [id number] [address] [place] [address], [place] [address] Apr, [facility] [address] [id number] [address] [place] [address] Apr, [facility] [address] [id number] [address] [place] [address], [place] [address] Mar, [facility] [address] [id number] [address] [place] [id number] Mar, [facility] [address] [id number] [address] [place] [address] Mar, [facility] [address] [id number] [address] [place] [address] Mar, [facility] [address] [id number] [address] [place] [address] Mar, [facility] [address] [id number] [address] [place] [address] Mar, [facility] [address] [id number] [address] [place] [address], [place] [address] Mar, [facility] [address] [id number] [address] [place] [id number] Mar, [facility] [address] [id number] [address] [place] [address] Mar, [facility] [address] [id number] [address] [place] [address], [place] [address] 25 Feb, 2012 [facility] [address] [id number] [address] [place] [address], [place] [address] 16 Feb, 2012 [facility] [address] [id number] [address] [place] [address], [place] [address] 11 Feb, 2012 [facility] [address] [id number] [address] [place] [address], [place] [address] 25 Jan, 2012 [facility] [address] [id number] [address] [place] [address], [place] [address] Jan, [facility] [address] [id number] [address] [place] [address], [place] [address] Jan, [facility] [address] [id number] [address] [place] [address], [place] [address] 18 Jan, 2012 [facility] [address] [id number] [address] [place] [address], [place] [address] Jan, [facility] [address] [id number] [address] [place] [address], [place] [address] 17 Jan, 2012 [facility] [address] [id number] [address] [place] [address], [place] [address] 16 Jan, 2012 [facility] [address] [id number] [address] [place] [address], [place] [address] 15 Jan, 2012 [facility] [address] [id number] [address] [place] [address], [place] [address] 15 Jan, 2012 [facility] [address] [id number] [address] [place] [address], [place] [address] Jan, [facility] [address] [id number] [address] [place] [address], [place] [address] Dec, [facility] [address] [id number] [address] [place] [address], [place] [address] Dec, [facility] [address] [id number] [address] [place] [address], [place] [address] Dec, [facility] [address] [id number] [address] [place] [address], [place] [address] 17 Dec, 2011 [facility] [address] [id number] [address] [place] [address], [place] [address] Nov, [facility] [address] [id number] [address] [place] [address], [place] [address] 08 Nov, 2011 [facility] [address] [id number] [address] [place] [address], [place] [address] Nov, [facility] [address] [id number] [address] [place] [address], [place] [address] October, [facility] [address] [id number] [address] [place] [address], [place] [address] October, [facility] [address] [id number] [address] [place] [address], [place] [address] October, [facility] [address] [id number] [address] [place] [address], [place] [address] October, [facility] [address] [id number] [address] [place] [address], [place] [address] October, [facility] [address] [id number] [address] [place] [address], [place] [address] October, [facility] [address] [id number] [address] [place] [address], [place] [address] Aug, [facility] [address] [id number] [address] [place] [address], [place] [address] Mar, [facility] [address] [id number] [address] [place] [address], [place] [address] Nov, [facility] [address] [id number] [address] [place] [address], [place] [address] May, [facility] [address] [id number] [address] [place] [address], [place] [address] May, [facility] [address] [id number] [address] [place] [id number] Apr, [facility] [address] [facility] [id number] [address] [place] [id number] Mar, [facility] [address] [facility] [id number] [address] [place] [id number] Mar, IMMUNIZATIONS No Known Immunizations SOCIAL HISTORY Never Assessed REASON FOR VISIT EMR-[facility] PLAN OF CARE VITAL SIGNS [...]
--- OUTSIDE RECORDS SUMMARY | 2019-06-19 05:21 | XMS REPORT ---
Author Author Sydnie Huston Doctor Organization [facility] Address Unknown Phone Unavailable Care Team Providers Care Mule Rider Name Role Phone Migration, Doctor Unavailable Unavailable PROBLEMS Type Condition ICD9-CM Code MEL64-DQ Code Onset Dates Condition S tatus SNOMED Code Problem Hormone replacement therapy Z79.890 Ac tive 383678163 Problem Sensorineural hearing loss (SNHL) of both ears H90 .3 Active 979856751 Problem Abnormal CT scan, head R93.0 Active 185330422 Problem Arthralgia of hip, unspecified laterality M25.559 Active 32457231 Problem Bruising, spontaneous R23.3 Active 863883083 Problem Hypertension I10 Active 1994708 3 Problem Night sweats R61 Active 3828994 0 Problem Hammer toe of right foot M20.41 Activ e 286739726 Problem Hematuria, unspecified type R31.9 Ac tive 25906225 Problem Bipolar 1 disorder, mixed F31.60 Acti ve 28625646 Problem Gastritis without bleeding, unspecified chronicity, unspecified gastritis type K29.70 Active 383479873 Problem Hearing loss, unspecified laterality H91.90 Active 34603603 Problem Ataxia R27.0 Active 97019308 Problem Hot flashes due to menopause N95.1 A ctive 883296866 Problem Allergic rhinitis J30.9 Active 61 107674 Problem Generalized anxiety disorder F41.1 A ctive 72508924 Problem History of colon polyps Z86.010 Active 028853555 Problem Imbalance R26.89 Active 859997787 Problem Major depressive disorder, recurrent episode, moderate F33.1 Active 256451799 Problem Fibromyalgia M79.7 Active 8590835 7 Problem Slow transit constipation K59.01 Acti ve 56891085 Problem Grief F43.20 Active 51105400 Problem Tobacco use disorder F17.200 Active 407821520 Problem Hyperlipidemia, unspecified hyperlipidemia type E7 8.5 Active 34817394 Problem Other chronic pain G89.29 Active 8 2323446 Problem Bladder spasm N32.89 Active 817383 006 Problem Acute left-sided low back pain with left-sided sciatica M54.42 Active 528103211 Problem Sciatica of left side M54.32 Active 83251314 Problem Plantar wart of right foot B07.0 Act mitchell [id number] ALLERGIES No Information ENCOUNTERS Encounter Location Date Diagnosis [facility] [id number] [place] [address] Sep, [facility] [id number] [place] [address] Sep, [facility] [id number] [place] [address] Sep, [facility] [address] [address] Sep, [facility] [address] [address] Sep, [facility] [address] [address] Sep, Gastritis without bleeding, unspecified chronicity, unspecified gastritis type K29.70 [place] [id number] [place] [address] Sep, Exercise counseling Z71.82 [place] [id number] [place] [address] Aug, Exercise counseling Z71.82 [place] [id number] [place] [address] Aug, Bipolar 1 disorder, mixed F3 1.60 [place] [id number] [place] [address] Aug, Exercise counseling Z71.82 [facility] [id number] [place] [address] Aug, Bipolar 1 disorder, mixed F3 1.60 [place] [id number] [place] [address] Aug, Gastritis without bleeding, unspecified chronicity, unspecified gastritis type K29.70 ; Tobacco abuse Z72.0 ; Generalized anxiety disorder F41.1 and Weight gain R63.5 [place] [id number] [place] [address] Aug, Bipolar 1 disorder, mixed F3 1.60 ; Generalized anxiety disorder F41.1 and Tobacco use disorder F17.200 [place] [id number] [place] [address] Jul, Bipolar 1 disorder, mixed F3 1.60 [place] [id number] [place] [address] Jul, [place] [id number] [place] [address] Jul, Bipolar 1 disorder, mixed F3 1.60 [place] [id number] [place] [address] Jul, Allergic rhinitis J30.9 ; Ma darion depressive disorder, recurrent episode, moderate F33.1 and Tobacco 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 [place] [id number] [place] [address] Jun, [place] [id number] [place] [address] Jun, [place] [id number] [place] [address] Jun, Bipolar 1 disorder, mixed F3 1.60 [place] [id number] [place] [address] Jun, Bipolar 1 disorder, mixed F3 1.60 [place] [id number] [place] [address] Jun, Bipolar 1 disorder, mixed F3 1.60 [place] [id number] [place] [address] Jun, Generalized anxiety disorder F41.1 ; Tobacco abuse Z72.0 and Major depressive disorder, recurrent episode, moderate F33.1 [place] [id number] [place] [address] May, Bipolar 1 disorder, mixed F3 1.60 [facility] [id number] [place] [address] May, Bipolar 1 disorder, mixed F3 1.60 and Generalized anxiety disorder F41.1 [place] [id number] [place] [address] May, Bipolar 1 disorder, mixed F3 1.60 [place] [id number] [place] [address] May, Allergic rhinitis J30.9 [place] [id number] [place] [address] May, Bipolar 1 disorder, mixed F3 1.60 [place] [id number] [place] [address] May, [place] [id number] [place] [address] Apr, Allergic rhinitis J30.9 ; Dy sfunction of both eustachian tubes H69.83 ; History of bladder surgery Z98.890 and Cervicalgia M54.2 [place] [id number] [place] [address] Mar, Bipolar 1 disorder, mixed F3 1.60 [place] [id number] [place] [address] Mar, [place] [id number] [place] [address] Mar, Slow transit constipation K5 9.01 ; Encounter for immunization Z23 and Generalized anxiety disorder F41.1 [facility] [id number] [place] [address] Feb, Bipolar 1 disorder, mixed F3 1.60 [facility] [address] [id number] [address] [place] [address] 26 Feb, 2018 Allergic rhinitis J30.9 [facility] [address] [id number] [address] [place] [address] 24 Feb, 2018 Bipolar 1 disorder, mixed F3 1.60 [facility] [address] [id number] [address] [place] [address] 20 Feb, 2018 Bipolar 1 disorder, mixed F3 1.60 and Generalized anxiety disorder F41.1 [facility] [address] [id number] [address] [place] [address] 13 Feb, 2018 Bipolar 1 disorder, mixed F3 1.60 [facility] [address] [facility] [id number] [address] [place] [address] 11 Feb, 2018 Allergic rhinitis J30.9 [facility] [address] [id number] [address] [place] [address] 05 Feb, 2018 [facility] [address] [id number] [address] [place] [address] Jan, Bipolar 1 disorder, mixed F3 1.60 [facility] [address] [facility] [id number] [address] [place] [address] Jan, Low back pain M54.5 ; Hyperl ipidemia, unspecified hyperlipidemia type E78.5 and Bipolar 1 disorder, mixed F31.60 [facility] [address] [facility] [id number] [address] [place] [address] Jan, Bipolar 1 disorder, mixed F3 1.60 [facility] [address] [facility] [id number] [address] [place] [address] Jan, Bipolar 1 disorder, mixed F3 1.60 [facility] [address] [facility] [id number] [address] [place] [address] Jan, Bipolar 1 disorder, mixed F3 1.60 [facility] [address] [facility] [id number] [address] [place] [address] Jan, Bipolar 1 disorder, mixed F3 1.60 [facility] [address] [facility] [id number] [address] [place] [address] Dec, Bipolar 1 disorder, mixed F3 1.60 ; Generalized anxiety disorder F41.1 and 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 [facility] [address] [facility] [id number] [address] [place] [address] Dec, Other residential (current) dr ug therapy Z79.899 [facility] [address] [facility] [id number] [address] [place] [address] Dec, Bipolar 1 disorder, mixed F3 1.60 [facility] [address] [facility] [id number] [address] [place] [address] Dec, Bipolar 1 disorder, mixed F3 1.60 [facility] [address] [facility] [id number] [address] [place] [address] Nov, Bipolar 1 disorder, mixed F3 1.60 [facility] [address] [facility] [id number] [address] [place] [address] Nov, Bipolar 1 disorder, mixed F3 1.60 [facility] [address] [facility] [id number] [address] [place] [address] Nov, Bipolar 1 disorder, mixed F3 1.60 [facility] [address] [facility] [id number] [address] [place] [address] Nov, Allergic rhinitis J30.9 [facility] [address] [facility] [id number] [address] [place] [address] Nov, Allergic rhinitis J30.9 [facility] [address] [facility] [id number] [address] [place] [address] Nov, [facility] [address] [facility] [id number] [address] [place], [place] [id number] Nov, Bipolar 1 disorder, mixed F3 1.60 [facility] [address] [facility] [id number] [address] [place] [address] Nov, Fibromyalgia M79.7 and Aller gic rhinitis J30.9 [facility] [id number] [place] [address] October, Bipolar 1 disorder, mixed F3 1.60 [facility] [id number] [place] [address] October, Acute nasopharyngitis J00 [facility] [id number] [place] [address] October, Bitten or stung by nonvenomo us insect and other nonvenomous arthropods, initial encounter W57.XXXA and Insect bite (nonvenomous) of abdominal wall, initial encounter S30.861A [facility] [id number] [place] [address] October, Insect bite (nonvenomous) of abdominal wall, initial encounter S30.861A ; Bitten or stung by nonvenomous insect and other nonvenomous arthropods, initial encounter W57.XXXA ; Allergic rhinitis J30.9 and Low back pain M54.5 [facility] [address] [place] [address] October, Bipolar 1 disorder, mixed F3 1.60 [facility] [id number] [place] [address] October, [facility] [address] [place] [address] October, [facility] [id number] [place] [address] October, Bipolar 1 disorder, mixed F3 1.60 [facility] [id number] [place] [address] Sep, Bipolar 1 disorder, mixed F3 1.60 [facility] [id number] [place] [address] Sep, Other chronic pain G89.29 [place] [address] [facility] [id number] [address] [place] [address] Sep, [facility] [address] [facility] [id number] [address] [place] [address] Sep, Bipolar 1 disorder, mixed F3 1.60 [facility] [id number] [place] [address] Sep, Allergic rhinitis J30.9 and Sciatica of left side M54.32 [facility] [address] [facility] [id number] [address] [place] [address] Sep, Bipolar 1 disorder, mixed F3 1.60 [place] [id number] [place] [address] Sep, Bipolar 1 disorder, mixed F3 1.60 and Generalized anxiety disorder F41.1 [place] [id number] [place] [address] Aug, [facility] [address] [facility] [id number] [address] [place] [address] Aug, Bipolar 1 disorder, mixed F3 1.60 [facility] [id number] [place] [address] Aug, Bipolar 1 disorder, mixed F3 1.60 [facility] [id number] [place] [address] Aug, [facility] [id number] [place] [address] Aug, Generalized anxiety disorder F41.1 [facility] [address] [facility] [id number] [address] [place] [address] Aug, Bipolar 1 disorder, mixed F3 1.60 [facility] [id number] [place] [address] Aug, Plantar wart of right foot B 07.0 [facility] [id number] [place] [address] Aug, Bipolar 1 disorder, mixed F3 1.60 [facility] [address] [facility] [id number] [address] [place] [address] Jul, Bipolar 1 disorder, mixed F3 1.60 [facility] [address] [facility] [id number] [address] [place] [address] Jul, [facility] [address] [facility] [id number] [address] [place] [address] Jul, Bipolar 1 disorder, mixed F3 1.60 [facility] [address] [facility] [id number] [address] [place] [address] 09 Jul, 2017 Generalized anxiety disorder F41.1 [facility] [address] [facility] [id number] [address] [place] [address] 07 Jul, 2017 Bipolar 1 disorder, mixed F3 1.60 [facility] [id number] [place] [address] Jul, Acute left-sided low back pa in with left-sided sciatica M54.42 [facility] [address] [facility] [id number] [address] [place] [address] 05 Jul, 2017 Coccydynia M53.3 [facility] [address] [facility] [id number] [address] [place] [address] Jun, Bipolar 1 disorder, mixed F3 1.60 [facility] [address] [facility] [id number] [address] [place] [address] Jun, Acute nasopharyngitis J00 [facility] [address] [facility] [id number] [address] [place] [address] Jun, Bipolar 1 disorder, mixed F3 1.60 [facility] [address] [facility] [id number] [address] [place] [address] Jun, Fibromyalgia M79.7 [facility] [address] [facility] [id number] [address] [place] [address] Jun, Bipolar 1 disorder, mixed F3 1.60 [facility] [id number] [place] [address] Jun, Fibromyalgia M79.7 and Bipol ar 1 disorder, mixed F31.60 [facility] [id number] [place] [address] May, Bipolar 1 disorder, mixed F3 1.60 ; Generalized anxiety disorder F41.1 and Other residential (current) drug therapy Z79.899 [facility] [id number] [place] [address] May, Bipolar 1 disorder, mixed F3 1.60 [facility] [address] [address] May, Cough R05 and Body aches R52 [facility] [address] [address] May, Bladder spasm N32.89 and Acu te cystitis without hematuria N30.00 [place] [address] [address] May, Bipolar 1 disorder, mixed F3 1.60 [place] [address] [address] Apr, [place] [address] [address] Apr, Major depressive disorder, r ecurrent episode, moderate F33.1 and Encounter for immunization Z23 [facility] [id number] [place] [address] Apr, Bipolar 1 disorder, mixed F3 1.60 [place] [id number] [place] [address] Apr, Bipolar 1 disorder, mixed F3 1.60 [place] [id number] [place] [address] Apr, Bipolar 1 disorder, mixed F3 1.60 [facility] [id number] [place] [address] 13 Apr, 2017 Yeast vaginitis B37.3 [facility] [address] [facility] [id number] [address] [place] [address] 09 Apr, 2017 Bipolar 1 disorder, mixed F3 1.60 [facility] [id number] [place] [address] 07 Apr, 2017 [address]03[address] for immunization Z23 [facility] [id number] [place] [address] Apr, Bipolar 1 disorder, mixed F3 1.60 [facility] [id number] [place], [place] [address] Mar, Bipolar 1 disorder, mixed F3 1.60 [facility] [address] [address] Mar, Bipolar 1 disorder, mixed F3 1.60 [facility] [id number] [place] [address] Mar, Imbalance R26.89 and Encount er for immunization Z23 [facility] [id number] [place] [address] Mar, Generalized anxiety disorder F41.1 [facility] [id number] [place] [address] Mar, Bipolar 1 disorder, mixed F3 1.60 [facility] [id number] [place] [address] Mar, Generalized anxiety disorder F41.1 [facility] [id number] [place] [address] Mar, Bipolar 1 disorder, mixed F3 1.60 [facility] [id number] [place] [address] Mar, Bipolar 1 disorder, mixed F3 1.60 [place] [address] [facility] [id number] [address] [place] [address] 27 Feb, 2017 Bipolar 1 disorder, mixed F3 1.60 [place] [id number] [place] [address] Feb, Bipolar 1 disorder, mixed F3 1.60 and Generalized anxiety disorder F41.1 [place] [id number] [place] [address] Feb, Gastritis without bleeding, unspecified chronicity, unspecified gastritis type K29.70 ; Hammer toe of right foot M20.41 and Other viral warts B07.8 [place] [id number] [place] [address] 20 Feb, 2017 Bipolar 1 disorder, mixed F3 1.60 [place] [id number] [place] [address] Feb, Bipolar 1 disorder, mixed F3 1.60 [place] [id number] [place] [id number] 05 Feb, 2017 Bipolar 1 disorder, mixed F3 1.60 [place] [address] [place] [id number] [address] [place] [id number] Jan, Encounter for screening mamm ogram for breast cancer Z12.31 ; Other viral warts B07.8 and Allergic rhinitis J30.9 [place] [address] [address] [place] [id number] [address] [place] [address] Jan, Bipolar 1 disorder, mixed F3 1.60 [place] [address] [place] [id number] [address] [place] [address] Jan, Bipolar 1 disorder, mixed F3 1.60 [place] [address] [place] [id number] [place] [id number] Jan, [place] [address] [place] [id number] [place] [id number] Jan, Bipolar 1 disorder, mixed F3 1.60 [place] [address] [place] [id number] [address] [place] [address] Jan, Bipolar 1 disorder, mixed F3 1.60 [place] [address] [address] Jan, Allergic rhinitis J30.9 ; He maturia R31.9 and Colon cancer screening Z12.11 [place] [address] [address] Dec, Bipolar 1 disorder, mixed F3 1.60 [place] [address] [address] Dec, Bipolar 1 disorder, mixed F3 1.60 ; Generalized anxiety disorder F41.1 and Other residential (current) drug therapy Z79.899 [place] [address] [address] Dec, Bipolar 1 disorder, mixed F3 1.60 [place] [address] [address] Dec, Bipolar 1 disorder, mixed F3 1.60 [place] [address] [address] Dec, Bipolar 1 disorder, mixed F3 1.60 [place] [address] [address] Dec, Low back pain M54.5 and Recu rrent urinary tract infection N39.0 [place] [address] [place] [id number] [address] [place] [address] Nov, Bipolar 1 disorder, mixed F3 1.60 [place] [address] [address] Nov, Bipolar 1 disorder, mixed F3 1.60 [place] [address] [address] Nov, Bipolar 1 disorder, mixed F3 1.60 [place] [address] [address] Nov, Bipolar 1 disorder, mixed F3 1.60 [place] [address] [address] Nov, [place] [address] [address] Nov, Anesthesia of skin R20.0 ; F requent UTI N39.0 ; Tobacco abuse Z72.0 and Colon cancer screening Z12.11 [place] [address] [address] Nov, Bipolar 1 disorder, mixed F3 1.60 [place] [address] [place] [id number] October, Bipolar 1 disorder, mixed F3 1.60 [place] [address] [address] October, Bipolar 1 disorder, mixed F3 1.60 [place] [address] [address] October, Bipolar 1 disorder, mixed F3 1.60 [place] [address] [address] October, Bipolar 1 disorder, mixed F3 1.60 [place] [address] [address] October, Bipolar 1 disorder, mixed F3 1.60 [place] [address] [address] October, Cervicalgia M54.2 and Bipola r 1 disorder, mixed F31.60 [place] [address] [address] October, Hypertension I10 ; Hyperlipi demia, unspecified hyperlipidemia type E78.5 and Family history of thyroid disease Z83.49 [place] [address] [place] [address] October, [place] [address] [address] October, Hypertension I10 ; Hyperlipi demia, unspecified hyperlipidemia type E78.5 and Family history of thyroid problem Z83.49 [place] [address] [place] [id number] [address] [place] [address] October, Bipolar 1 disorder, mixed F3 1.60 [place] [address] [address] Sep, Bipolar 1 disorder, mixed F3 1.60 [place] [address] [address] Sep, Bipolar 1 disorder, mixed F3 1.60 [place] [address] [address] Sep, Bipolar 1 disorder, mixed F3 1.60 [place] [address] [address] Sep, History of colon polyps Z86. 010 and Hematochezia K92.1 [place] [address] [address] Sep, Major depressive disorder, r ecurrent episode, moderate F33.1 [place] [address] [place] [id number] [address] [place] [address] Sep, Bipolar 1 disorder, mixed F3 1.60 [place] [address] [place] [address] Aug, Hot flashes due to menopause N95.1 [place] [address] [place] [id number] [address] [place] [address] Aug, Bipolar 1 disorder, mixed F3 1.60 [place] [address] [place] [id number] [address] [place] [address] Aug, [place] [address] [address] Aug, Bipolar 1 disorder, mixed F3 1.60 [place] [address] [place] [address] Aug, Bipolar 1 disorder, mixed F3 1.60 [place] [address] [address] Aug, Hot flashes due to menopause N95.1 ; Cervicalgia M54.2 and Ataxia R27.0 [place] [address] [address] Jul, Bipolar 1 disorder, mixed F3 1.60 [place] [address] [place] [address] Jul, Bipolar 1 disorder, mixed F3 1.60 [place] [address] [address] Jul, Bipolar 1 disorder, mixed F3 1.60 [place] [address] [address] Jul, Bipolar 1 disorder, mixed F3 1.60 [place] [address] [address] Jul, Bipolar 1 disorder, mixed F3 1.60 [place] [address] [address] Jul, Cervicalgia M54.2 ; Tremor R 25.1 ; Hearing abnormally acute, unspecified laterality H93.239 ; Alopecia L65.9 ; Encounter for immunization Z23 and Family history of thyroid disease Z83.49 [place] [address] [place] [address] Jul, Bipolar 1 disorder, mixed F3 1.60 [place] [address] [address] Jun, [place] [address] [place] [address] Jun, Hearing disorder, unspecifie d laterality H93.299 [facility] [address] [facility] [id number] [address] [place] [address] Jun, Bipolar 1 disorder, mixed F3 1.60 [facility] [address] [facility] [id number] [address] [place] [address] Jun, Bipolar 1 disorder, mixed F3 1.60 [facility] [address] [facility] [id number] [address] [place] [address] Jun, Allergic rhinitis J30.9 [facility] [address] [facility] [id number] [address] [place] [address] Jun, Bipolar 1 disorder, mixed F3 1.60 [facility] [address] [facility] [id number] [address] [place] [address] Jun, Bipolar 1 disorder, mixed F3 1.60 [facility] [address] [facility] [id number] [address] [place] [address] Jun, Allergic rhinitis J30.9 [facility] [address] [facility] [id number] [address] [place] [address] Jun, Allergic rhinitis J30.9 [facility] [address] [facility] [id number] [address] [place] [address] Jun, Bipolar 1 disorder, mixed F3 1.60 [facility] [address] [facility] [id number] [address] [place] [address] May, Bipolar 1 disorder, mixed F3 1.60 [facility] [address] [facility] [id number] [address] [place] [address] May, Bipolar 1 disorder, mixed F3 1.60 [facility] [address] [facility] [id number] [address] [place] [address] May, [facility] [address] [facility] [id number] [address] [place] [address] May, Bipolar 1 disorder, mixed F3 1.60 [facility] [address] [facility] [id number] [address] [place] [address] May, Bipolar 1 disorder, mixed F3 1.60 [facility] [address] [facility] [id number] [address] [place] [address] May, [facility] [address] [facility] [id number] [address] [place] [address] May, [facility] [address] [facility] [id number] [address] [place] [address] May, [facility] [address] [place] [id number] [place] [address] May, Abdominal pain, unspecified location R10.9 [facility] [address] [place] [id number] [address] [place] [address] May, [facility] [address] [place] [id number] [place] [address] Apr, Hematuria R31.9 ; Ataxia R27 .0 and Hearing loss, unspecified laterality H91.90 [facility] [address] [place] [id number] [address] [place] [address] Apr, Bipolar 1 disorder, mixed F3 1.60 [facility] [address] [facility] [id number] [address] [place] [address] Apr, Acute effusion of both middl e ears H65.193 [facility] [address] [facility] [id number] [address] [place] [address] Apr, Hematuria R31.9 and Pyelonep hritis N12 [facility] [address] [place] [id number] [address] [place] [address] Apr, [facility] [address] [facility] [id number] [address] [place] [address] Mar, Bipolar 1 disorder, mixed F3 1.60 [facility] [address] [place] [id number] [address] [place], [place] [id number] Mar, [place] [address] [place] [id number] [address] [place] [address] Mar, Bipolar 1 disorder, mixed F3 1.60 [place] [address] [facility] [id number] [address] [place] [address] Mar, Bipolar 1 disorder, mixed F3 1.60 [place] [address] [place] [id number] [address] [place] [id number] Mar, Encounter for immunization Z 23 and Gastritis without bleeding, unspecified chronicity, unspecified gastritis type K29.70 [place] [address] [place] [id number] [address] [place] [id number] Mar, Bipolar 1 disorder, mixed F3 1.60 and Grief F43.20 [place] [address] [place] [id number] [address] [place] [address] Mar, Gastritis without bleeding, unspecified chronicity, unspecified gastritis type K29.70 [place] [address] [place] [id number] [address] [place] [address] Mar, Bipolar 1 disorder, mixed F3 1.60 [place] [address] [place] [id number] [place] [address] Mar, Gastritis without bleeding, unspecified chronicity, unspecified gastritis type K29.70 [place] [address] [place] [id number] [address] [place] [address] Mar, [place] [address] [facility] [id number] [address] [place] [address] Feb, Bipolar 1 disorder, mixed F3 1.60 [place] [address] [place] [id number] [address] [place] [address] Feb, Bipolar 1 disorder, mixed F3 1.60 and Grief F43.20 [place] [address] [facility] [id number] [address] [place] [address] Feb, Gastritis without bleeding, unspecified chronicity, unspecified gastritis type K29.70 [facility] [address] [place] [id number] [address] [place] [address] 14 Feb, 2016 Bipolar 1 disorder, mixed F3 1.60 [facility] [address] [place] [id number] [address] [place] [address] Feb, Gastroesophageal reflux dise ase, esophagitis presence not specified K21.9 [facility] [address] [place] [address] Jan, Bipolar 1 disorder, mixed F3 1.60 [facility] [address] Jan, Bipolar 1 disorder, mixed F3 1.60 and Unsteady gait R26.81 [place] [address] [address] Jan, Bipolar 1 disorder, mixed F3 1.60 [facility] [address] [address] Jan, Bipolar 1 disorder, mixed F3 1.60 and Other residential (current) drug therapy Z79.899 [place] [address] [place] [address] Jan, Bipolar 1 disorder, mixed F3 1.60 [facility] [address] [address] Jan, Bipolar 1 disorder, mixed F3 1.60 [facility] [address] Jan, Bipolar 1 disorder, mixed F3 1.60 ; Grief F43.20 and 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 [place] [address] [place] [address] Jan, Bipolar 1 disorder, mixed F3 1.60 [place] [address] [place] [address] Dec, [place] [address] [place] [address] Dec, Bipolar 1 disorder, mixed F3 1.60 ; Vitamin D deficiency, unspecified E55.9 ; H/O allergic rhinitis Z87.09 ; Other chronic pain G89.29 and Dorsalgia, unspecified M54.9 [facility] [address] [place] [address] Dec, [facility] [address] [address] Dec, Bipolar 1 disorder, mixed F3 1.60 [place] [address] [address] Dec, Major depressive disorder, r ecurrent episode, moderate F33.1 [place] [address] [address] Dec, Major depressive disorder, r ecurrent episode, moderate F33.1 [place] [address] [place] [address] Nov, [place] [address] [address] Nov, Bipolar 1 disorder, mixed F3 1.60 [place] [address] [address] Nov, Major depressive disorder, r ecurrent episode, moderate F33.1 [place] [address] [place] [address] Nov, Cervicalgia M54.2 ; Arthralg ia of hip, unspecified laterality M25.559 ; Allergic rhinitis J30.9 and Hormone replacement therapy Z79.890 [facility] [address] [place] [id number] [address] [place] [address] Nov, Other seasonal allergic rhin itis J30.2 [facility] [address] [place] [address] October, Major depressive disorder, r ecurrent episode, moderate F33.1 [place] [address] [id number] [address] [place] [address] October, Major depressive disorder, r ecurrent episode, moderate F33.1 and Arthralgia of hip, unspecified laterality M25.559 [place] [address] [facility] [id number] [address] [place] [address] October, Grief F43.20 ; Hypertension I10 ; Hyperlipidemia, unspecified hyperlipidemia type E78.5 ; Other chronic pain G89.29 and Allergic rhinitis, unspecified allergic rhinitis type J30.9 [place] [address] [facility] [id number] [address] [place] [address] October, Major depressive disorder, r ecurrent episode, moderate F33.1 [place] [address] [facility] [id number] [address] [place] [address] Sep, Major depressive disorder, r ecurrent episode, moderate F33.1 [place] [address] [id number] [address] [place] [address] Sep, [place] [address] [facility] [id number] [address] [place] [address] Sep, Major depressive disorder, r ecurrent episode, moderate F33.1 [place] [address] [facility] [id number] [address] [place] [address] Sep, Grief F43.20 [place] [address] [facility] [id number] [address] [place] [address] Aug, Major depressive disorder, r ecurrent episode, moderate F33.1 [place] [address] [facility] [id number] [address] [place] [address] Aug, Bipolar 1 disorder, mixed F3 1.60 [place] [address] [facility] [id number] [address] [place] [address] Aug, Allergic rhinitis J30.9 ; Ce rvicalgia M54.2 and Low back pain M54.5 [facility] [address] [facility] [id number] [address] [place] [address] Aug, Major depressive disorder, r ecurrent episode, moderate F33.1 [facility] [address] [facility] [id number] [address] [place] [address] Aug, Sinusitis J32.9 and Tobacco 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 [facility] [address] [facility] [id number] [address] [place] [address] Aug, [facility] [address] [place] [id number] [address] [place] [address] Aug, Depressive disorder, not els ewhere classified F32.9 ; Hormone replacement therapy Z79.[address] scan, head R93.0 [facility] [address] [place] [address] Aug, Major depressive disorder, r ecurrent episode, moderate F33.1 [facility] [address] [place] [id number] [address] [place] [address] Jul, Major depressive disorder, r ecurrent episode, moderate F33.1 [facility] [address] [facility] [id number] [address] [place] [address] Jul, Abdominal pain R10.9 and Hyp ertension I10 [facility] [address] [facility] [id number] [address] [place] [address] Jul, [facility] [address] [place] [id number] [address] [place] [address] Jul, Major depressive disorder, r ecurrent episode, moderate F33.1 [facility] [address] [place] [id number] [address] [place] [address] Jul, [facility] [address] [facility] [id number] [address] [place] [address] Jul, [facility] [address] [place] [id number] [address] [place] [address] Jun, [facility] [address] [id number] [address] [place] [address] Jun, Depressive disorder, not els ewhere classified F32.9 [facility] [address] [id number] [address] [place] [address] Jun, [facility] [address] [id number] [address] [place] [address] Jun, [facility] [address] [id number] [address] [place] [address] Jun, Arthralgia of hip, unspecifi ed laterality M25.559 ; Bruising, spontaneous R23.3 and Night sweats R61 [facility] [address] [id number] [address] [place] [address] Jun, [facility] [address] [facility] [id number] [address] [place] [address] Jun, [facility] [address] [id number] [address] [place] [address] May, [facility] [address] [id number] [address] [place] [address] May, Myalgia M79.1 and Screening, lipid Z13.220 [facility] [address] [facility] [id number] [address] [place] [address] Apr, Status post cervical spinal fusion Z98.1 ; Fibromyalgia M79.7 and Unsteady gait R26.81 [facility] [address] [id number] [address] [place] [address] Nov, [facility] [address] [facility] [id number] [address] [place] [address] Nov, [facility] [address] [id number] [address] [place] [address] October, [facility] [address] [facility] [id number] [address] [place] [address] October, [facility] [address] [id number] [address] [place] [address], [place] [address] October, [facility] [address] [id number] [address] [place] [address] October, [facility] [address] [id number] [address] [place] [address] October, [facility] [address] [id number] [address] [place] [address] October, Dysuria 788.1 ; Nausea 787.0 2 and Urinary tract infection 599.0 [facility] [address] [id number] [address] [place] [address], [place] [address] Sep, [facility] [address] [id number] [address] [place] [address] Sep, [facility] [address] [id number] [address] [place] [address] Aug, [facility] [address] [id number] [address] [place] [address] Aug, [facility] [address] [id number] [address] [place] [address] Aug, [facility] [address] [id number] [address] [place] [address] Aug, [facility] [address] [id number] [address] [place] [address] Aug, [facility] [address] [id number] [address] [place] [address] Aug, [facility] [address] [id number] [address] [place] [address] Aug, [facility] [address] [id number] [address] [place] [address] Aug, [facility] [address] [id number] [address] [place] [address] 19 Aug, 2014 [facility] [address] [id number] [address] [place] [address], [place] [address] 18 Aug, 2014 [facility] [address] [id number] [address] [place] [address], [place] [address] 18 Aug, 2014 [facility] [address] [id number] [address] [place] [address], [place] [address] 13 Aug, 2014 [facility] [address] [id number] [address] [place] [address], [place] [address] 13 Aug, 2014 [facility] [address] [id number] [address] [place] [address], [place] [address] Aug, [facility] [address] [id number] [address] [place] [address], [place] [address] Aug, [facility] [address] [id number] [address] [place] [address], [place] [address] Aug, [facility] [address] [id number] [address] [place] [address], [place] [address] Aug, [facility] [address] [id number] [address] [place] [address], [place] [address] 05 Aug, 2014 [facility] [address] [id number] [address] [place] [address], [place] [address] 05 Aug, 2014 [facility] [address] [id number] [address] [place] [address], [place] [address] Aug, [facility] [address] [id number] [address] [place] [address], [place] [address] Aug, [facility] [address] [id number] [address] [place] [address], [place] [address] Aug, [facility] [address] [id number] [address] [place] [address], [place] [address] Jul, [facility] [address] [id number] [address] [place] [address], [place] [address] Jul, [facility] [address] [id number] [address] [place] [address], [place] [address] Jul, 2014 [facility] [address] [id number] [address] [place] [address], [place] [address] Jul, 2014 [facility] [address] [id number] [address] [place] [address], [place] [address] Jul, 2014 [facility] [address] [id number] [address] [place] [address], [place] [address] Jul, 2014 [facility] [address] [id number] [address] [place] [address], [place] [address] Jul, 2014 [facility] [address] [id number] [address] [place] [address], [place] [address] Jul, 2014 [facility] [address] [id number] [address] [place] [address], [place] [address] Jul, [facility] [address] [id number] [address] [place] [address], [place] [address] Jul, [facility] [address] [id number] [address] [place] [address], [place] [address] Jul, [facility] [address] [id number] [address] [place] [address], [place] [address] Jul, [facility] [address] [id number] [address] [place] [id number] Jul, [facility] [address] [id number] [address] [place] [address] Jul, [facility] [address] [id number] [address] [place] [address], [place] [address] Jun, [facility] [address] [id number] [address] [place] [address] Jun, [facility] [address] [id number] [address] [place] [address] Jun, [facility] [address] [id number] [address] [place] [id number] Jun, [facility] [address] [id number] [address] [place] [address], [place] [address] Jun, [facility] [address] [id number] [address] [place] [address], [place] [address] Jun, [facility] [address] [id number] [address] [place] [address], [place] [address] May, [facility] [address] [id number] [address] [place] [address], [place] [address] May, [facility] [address] [id number] [address] [place] [address], [place] [address] May, [facility] [address] [id number] [address] [place] [address], [place] [address] May, [facility] [address] [id number] [address] [place] [address], [place] [address] May, [facility] [address] [id number] [address] [place] [address], [place] [address] May, [facility] [address] [id number] [address] [place] [address], [place] [address] Apr, [facility] [address] [id number] [address] [place] [address], [place] [address] Apr, [facility] [address] [id number] [address] [place] [address], [place] [address] Apr, [facility] [address] [id number] [address] [place] [address], [place] [address] Apr, [facility] [address] [id number] [address] [place] [address], [place] [address] Apr, [facility] [address] [id number] [address] [place] [address], [place] [address] Apr, [facility] [address] [id number] [address] [place] [address], [place] [address] Mar, [facility] [address] [id number] [address] [place] [address], [place] [address] Mar, 2013 [facility] [address] [id number] [address] [place] [address], [place] [address] Mar, 2013 [facility] [address] [id number] [address] [place] [address], [place] [address] Mar, 2013 [facility] [address] [id number] [address] [place] [address], [place] [address] Mar, 2013 [facility] [address] [id number] [address] [place] [address], [place] [address] Mar, 2013 [facility] [address] [id number] [address] [place] [address], [place] [address] Mar, 2013 [facility] [address] [id number] [address] [place] [address], [place] [address] Mar, 2013 [facility] [address] [id number] [address] [place] [address], [place] [address] Mar, 2013 [facility] [address] [id number] [address] [place] [address], [place] [address] Mar, [facility] [address] [id number] [address] [place] [address], [place] [address] Mar, 2013 [facility] [address] [id number] [address] [place] [address], [place] [address] Mar, [facility] [address] [id number] [address] [place] [address], [place] [address] 30 Feb, 2013 [facility] [address] [id number] [address] [place] [address], [place] [address] 29 Feb, 2013 [facility] [address] [id number] [address] [place] [address], [place] [address] 29 Feb, 2013 [facility] [address] [id number] [address] [place] [address], [place] [address] 23 Feb, 2013 [facility] [address] [id number] [address] [place] [address], [place] [address] Feb, [facility] [address] [id number] [facility] [address] Feb, [facility] [address] [id number] [address] [place] [address], [place] [address] Feb, [facility] [address] [id number] [address] [place] [address], [place] [address] Jan, [facility] [address] [id number] [address] [place] [address], [place] [address] Jan, [facility] [address] [id number] [address] [place] [address], [place] [address] Jan, [facility] [address] [id number] [address] [place] [address], [place] [address] Dec, [facility] [address] [id number] [address] [place] [address], [place] [address] Dec, [facility] [address] [id number] [address] [place] [address], [place] [address] Dec, [facility] [address] [id number] [address] [place] [address], [place] [address] Dec, [facility] [address] [id number] [address] [place] [address], [place] [address] Sep, [facility] [address] [id number] [address] [place] [address], [place] [address] Sep, [facility] [address] [id number] [address] [place] [address], [place] [address] Sep, [facility] [address] [id number] [address] [place] [address], [place] [address] Sep, [facility] [address] [id number] [address] [place] [address], [place] [address] Sep, [facility] [address] [id number] [address] [place] [address], [place] [address] Sep, [facility] [address] [id number] [address] [place] [address], [place] [address] Sep, [facility] [address] [id number] [address] [place] [address], [place] [address] Sep, [facility] [address] [id number] [address] [place] [address], [place] [address] Aug, [facility] [address] [id number] [address] [place] [address], [place] [address] Aug, [facility] [address] [id number] [address] [place] [address], [place] [address] May, [facility] [address] [id number] [address] [place] [address], [place] [address] May, [facility] [address] [id number] [address] [place] [address], [place] [address] Apr, [facility] [address] [id number] [address] [place] [address], [place] [address] Apr, [facility] [address] [id number] [address] [place] [address], [place] [address] Apr, [facility] [address] [id number] [address] [place] [address], [place] [address] Apr, [facility] [address] [id number] [address] [place] [address], [place] [address] Apr, [facility] [address] [id number] [address] [place] [address], [place] [address] Apr, [facility] [address] [id number] [address] [place] [address], [place] [address] May, [facility] [address] [id number] [address] [place] [address], [place] [address] May, [facility] [address] [id number] [address] [place] [address], [place] [address] May, [facility] [address] [id number] [address] [place] [address], [place] [address] May, [facility] [address] [id number] [address] [place] [address], [place] [address] May, [facility] [address] [id number] [address] [place] [address], [place] [address] May, [facility] [address] [id number] [address] [place] [address], [place] [address] Apr, [facility] [address] [id number] [address] [place] [address], [place] [address] Apr, [facility] [address] [id number] [address] [place] [address], [place] [address] Apr, [facility] [address] [id number] [address] [place] [address], [place] [address] Apr, [facility] [address] [id number] [address] [place] [address], [place] [address] Apr, [facility] [address] [id number] [address] [place] [address], [place] [address] Apr, [facility] [address] [id number] [address] [place] [address], [place] [address] Apr, [facility] [address] [id number] [address] [place] [address], [place] [address] Apr, [facility] [address] [id number] [address] [place] [address], [place] [address] Apr, [facility] [address] [id number] [address] [place] [address], [place] [address] Apr, [facility] [address] [id number] [address] [place] [address], [place] [address] Mar, [facility] [address] [id number] [address] [place] [address], [place] [address] Mar, [facility] [address] [id number] [address] [place] [address], [place] [address] Mar, [facility] [address] [id number] [address] [place] [address], [place] [address] Mar, [facility] [address] [id number] [address] [place] [address], [place] [address] Mar, [facility] [address] [id number] [address] [place] [address], [place] [address] Mar, [facility] [address] [id number] [address] [place] [address], [place] [address] Mar, [facility] [address] [id number] [address] [place] [address], [place] [address] Mar, [facility] [address] [id number] [address] [place] [address], [place] [address] Mar, [facility] [address] [id number] [address] [place] [address], [place] [address] Feb, [facility] [address] [id number] [address] [place] [address], [place] [address] 16 Feb, 2012 [facility] [address] [id number] [address] [place] [address], [place] [address] Feb, [facility] [address] [id number] [address] [place] [address], [place] [address] Jan, [facility] [address] [id number] [address] [place] [address], [place] [address] Jan, [facility] [address] [id number] [address] [place] [address], [place] [address] Jan, [facility] [address] [id number] [address] [place] [address], [place] [address] Jan, [facility] [address] [id number] [address] [place] [address], [place] [address] Jan, [facility] [address] [id number] [address] [place] [address], [place] [address] Jan, [facility] [address] [id number] [address] [place] [address], [place] [address] Jan, [facility] [address] [id number] [address] [place] [address], [place] [address] Jan, [facility] [address] [id number] [address] [place] [address], [place] [address] Jan, [facility] [address] [id number] [address] [place] [address], [place] [address] Jan, [facility] [address] [id number] [address] [place] [address], [place] [address] Dec, [facility] [address] [id number] [address] [place] [address], [place] [address] Dec, [facility] [address] [id number] [address] [place] [address], [place] [address] Dec, [facility] [address] [id number] [address] [place] [address], [place] [address] Dec, [facility] [address] [id number] [address] [place] [address], [place] [address] Nov, [facility] [address] [id number] [address] [place] [address], [place] [address] Nov, [facility] [address] [id number] [address] [place] [address], [place] [address] Nov, [facility] [address] [id number] [address] [place] [address], [place] [address] October, [facility] [address] [id number] [address] [place] [address], [place] [address] October, [facility] [address] [id number] [address] [place] [address], [place] [address] October, [facility] [address] [id number] [address] [place] [address], [place] [address] October, [facility] [address] [id number] [address] [place] [address], [place] [address] October, [facility] [address] [id number] [address] [place] [address], [place] [address] October, [facility] [address] [id number] [address] [place] [address] Aug, [facility] [address] [id number] [address] [place] [address] Mar, [facility] [address] [id number] [address] [place] [address] Nov, [facility] [address] [id number] [address] [place] [address] May, [facility] [address] [id number] [address] [place] [address] May, [facility] [address] [facility] [id number] [address] [place] [address] Apr, [facility] [address] [facility] [id number] [address] [place] [address] Mar, [facility] [address] [facility] [id number] [address] [place] [address] Mar, IMMUNIZATIONS No Known Immunizations SOCIAL HISTORY Never Assessed REASON FOR VISIT EMR-[facility] [place] PLAN OF CARE VITAL SIGNS MEDICATIONS Unknown [...]
--- OUTSIDE RECORDS SUMMARY | 2019-06-19 05:21 | XMS REPORT ---
Author Author Sydnie Huston Doctor Organization [facility] Address Unknown Phone Unavailable Care Team Providers Care Clinical Auditor Name Role Phone Migration, Doctor Unavailable Unavailable PROBLEMS Type Condition ICD9-CM Code EQK10-AZ Code Onset Dates Condition S tatus SNOMED Code Problem Hormone replacement therapy Z79.890 Ac tive 040802960 Problem Sensorineural hearing loss (SNHL) of both ears H90 .3 Active 452251482 Problem Abnormal CT scan, head R93.0 Active 110255590 Problem Arthralgia of hip, unspecified laterality M25.559 Active 45356268 Problem Bruising, spontaneous R23.3 Active 650042399 Problem Hypertension I10 Active 4537259 3 Problem Night sweats R61 Active 0498098 0 Problem Hammer toe of right foot M20.41 Activ e 945787098 Problem Hematuria, unspecified type R31.9 Ac tive 98199358 Problem Bipolar 1 disorder, mixed F31.60 Acti ve 43032910 Problem Gastritis without bleeding, unspecified chronicity, unspecified gastritis type K29.70 Active 671513509 Problem Hearing loss, unspecified laterality H91.90 Active 25609193 Problem Ataxia R27.0 Active 31725851 Problem Hot flashes due to menopause N95.1 A ctive 550072510 Problem Allergic rhinitis J30.9 Active 61 448125 Problem Generalized anxiety disorder F41.1 A ctive 28061644 Problem History of colon polyps Z86.010 Active 128684111 Problem Imbalance R26.89 Active 042414143 Problem Major depressive disorder, recurrent episode, moderate F33.1 Active 756304417 Problem Fibromyalgia M79.7 Active 8833059 7 Problem Slow transit constipation K59.01 Acti ve 92116971 Problem Grief F43.20 Active 32902011 Problem Tobacco use disorder F17.200 Active 229494593 Problem Hyperlipidemia, unspecified hyperlipidemia type E7 8.5 Active 39611304 Problem Other chronic pain G89.29 Active 8 2620866 Problem Bladder spasm N32.89 Active 359104 006 Problem Acute left-sided low back pain with left-sided sciatica M54.42 Active 975204960 Problem Sciatica of left side M54.32 Active 01032560 Problem Plantar wart of right foot B07.0 Act mitchell [id number] ALLERGIES No Information ENCOUNTERS Encounter Location Date Diagnosis [facility] [id number] [place] [phone] Sep, [facility] [id number] [place] [address] Sep, [facility] [id number] [place] [address] Sep, [facility] [address] [address] Sep, [facility] [address] [address] Sep, [facility] [address] [address] Sep, Gastritis without bleeding, unspecified chronicity, unspecified gastritis type K29.70 [place] [address] [id number] [place] [address] Sep, Exercise counseling Z71.82 [place] [id number] [place] [address] Aug, Exercise counseling Z71.82 [place] [id number] [place] [address] Aug, Bipolar 1 disorder, mixed F3 1.60 [place] [id number] [place] [address] Aug, Exercise counseling Z71.82 [facility] [id number] [place] [address] Aug, Bipolar 1 disorder, mixed F3 1.60 [place] [id number] [place] [address] Aug, Gastritis without bleeding, unspecified chronicity, unspecified gastritis type K29.70 ; Tobacco abuse Z72.0 ; Generalized anxiety disorder F41.1 and Weight gain R63.5 [place] [id number] [place] [address] Aug, Bipolar 1 disorder, mixed F3 1.60 ; Generalized anxiety disorder F41.1 and Tobacco use disorder F17.200 [place] [id number] [place] [address] Jul, Bipolar 1 disorder, mixed F3 1.60 [place] [id number] [place] [address] Jul, [place] [id number] [place] [address] Jul, Bipolar 1 disorder, mixed F3 1.60 [place] [address] [id number] [place] [address] Jul, Allergic rhinitis J30.9 ; Ma darion depressive disorder, recurrent episode, moderate F33.1 and Tobacco 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 [place] [id number] [place] [address] Jun, [place] [id number] [place] [address] Jun, [place] [id number] [place] [address] Jun, Bipolar 1 disorder, mixed F3 1.60 [place] [id number] [place] [address] Jun, Bipolar 1 disorder, mixed F3 1.60 [place] [id number] [place] [address] Jun, Bipolar 1 disorder, mixed F3 1.60 [place] [id number] [place] [address] Jun, Generalized anxiety disorder F41.1 ; Tobacco abuse Z72.0 and Major depressive disorder, recurrent episode, moderate F33.1 [place] [id number] [place] [address] May, Bipolar 1 disorder, mixed F3 1.60 [facility] [id number] [place] [address] May, Bipolar 1 disorder, mixed F3 1.60 and Generalized anxiety disorder F41.1 [place] [id number] [place] [address] May, Bipolar 1 disorder, mixed F3 1.60 [place] [id number] [place] [address] May, Allergic rhinitis J30.9 [place] [id number] [place] [address] May, Bipolar 1 disorder, mixed F3 1.60 [place] [id number] [place] [address] May, [place] [id number] [place] [address] Apr, Allergic rhinitis J30.9 ; Dy sfunction of both eustachian tubes H69.83 ; History of bladder surgery Z98.890 and Cervicalgia M54.2 [place] [id number] [place] [address] Mar, Bipolar 1 disorder, mixed F3 1.60 [place] [id number] [place] [address] Mar, [place] [id number] [place] [address] Mar, Slow transit constipation K5 9.01 ; Encounter for immunization Z23 and Generalized anxiety disorder F41.1 [facility] [id number] [place] [address] Feb, Bipolar 1 disorder, mixed F3 1.60 [facility] [address] [id number] [address] [place] [address] 26 Feb, 2018 Allergic rhinitis J30.9 [facility] [address] [id number] [address] [place] [phone] 24 Feb, 2018 Bipolar 1 disorder, mixed F3 1.60 [facility] [address] [id number] [address] [place] [phone] 20 Feb, 2018 Bipolar 1 disorder, mixed F3 1.60 and Generalized anxiety disorder F41.1 [facility] [address] [id number] [address] [place] [address] 13 Feb, 2018 Bipolar 1 disorder, mixed F3 1.60 [facility] [address] [facility] [id number] [address] [place] [address] 11 Feb, 2018 Allergic rhinitis J30.9 [facility] [address] [id number] [address] [place] [address] 05 Feb, 2018 [facility] [address] [id number] [address] [place] [address] Jan, Bipolar 1 disorder, mixed F3 1.60 [facility] [address] [facility] [id number] [address] [place] [address] Jan, Low back pain M54.5 ; Hyperl ipidemia, unspecified hyperlipidemia type E78.5 and Bipolar 1 disorder, mixed F31.60 [facility] [address] [facility] [id number] [address] [place] [address] Jan, Bipolar 1 disorder, mixed F3 1.60 [facility] [address] [facility] [id number] [address] [place] [address] Jan, Bipolar 1 disorder, mixed F3 1.60 [facility] [address] [facility] [id number] [address] [place] [address] Jan, Bipolar 1 disorder, mixed F3 1.60 [facility] [address] [facility] [id number] [address] [place] [address] Jan, Bipolar 1 disorder, mixed F3 1.60 [facility] [address] [facility] [id number] [address] [place] [address] Dec, Bipolar 1 disorder, mixed F3 1.60 ; Generalized anxiety disorder F41.1 and Other 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 designer (current) drug therapy Z79.899 [facility] [address] [facility] [id number] [address] [place] [address] Dec, Other longterm (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 Z79.899 [facility] [address] [facility] [id number] [address] [place] [address] Dec, Bipolar 1 disorder, mixed F3 1.60 [facility] [address] [facility] [id number] [address] [place] [address] Dec, Bipolar 1 disorder, mixed F3 1.60 [facility] [address] [facility] [id number] [address] [place] [address] Nov, Bipolar 1 disorder, mixed F3 1.60 [facility] [address] [facility] [id number] [address] [place] [address] Nov, Bipolar 1 disorder, mixed F3 1.60 [facility] [address] [facility] [id number] [address] [place] [address] Nov, Bipolar 1 disorder, mixed F3 1.60 [facility] [address] [facility] [id number] [address] [place] [address] Nov, Allergic rhinitis J30.9 [facility] [address] [facility] [id number] [address] [place] [address] Nov, Allergic rhinitis J30.9 [facility] [address] [facility] [id number] [address] [place] [address] Nov, [facility] [address] [facility] [id number] [address] [place], [place] [phone] Nov, Bipolar 1 disorder, mixed F3 1.60 [facility] [address] [facility] [id number] [address] [place] [address] Nov, Fibromyalgia M79.7 and Aller gic rhinitis J30.9 [facility] [id number] [place] [address] October, Bipolar 1 disorder, mixed F3 1.60 [facility] [id number] [place] [address] October, Acute nasopharyngitis J00 [facility] [id number] [place] [phone] October, Bitten or stung by nonvenomo us insect and other nonvenomous arthropods, initial encounter W57.XXXA and Insect bite (nonvenomous) of abdominal wall, initial encounter S30.861A [facility] [id number] [place] [address] October, Insect bite (nonvenomous) of abdominal wall, initial encounter S30.861A ; Bitten or stung by nonvenomous insect and other nonvenomous arthropods, initial encounter W57.XXXA ; Allergic rhinitis J30.9 and Low back pain M54.5 [facility] [address] [place] [address] October, Bipolar 1 disorder, mixed F3 1.60 [facility] [id number] [place] [address] October, [facility] [address] [place] [address] October, [facility] [id number] [place] [address] October, Bipolar 1 disorder, mixed F3 1.60 [facility] [id number] [place] [address] Sep, Bipolar 1 disorder, mixed F3 1.60 [facility] [id number] [place] [address] Sep, Other chronic pain G89.29 [place] [id number] [facility] [id number] [address] [place] [address] Sep, [facility] [address] [facility] [id number] [address] [place] [address] Sep, Bipolar 1 disorder, mixed F3 1.60 [facility] [id number] [place] [address] Sep, Allergic rhinitis J30.9 and Sciatica of left side M54.32 [facility] [address] [facility] [id number] [address] [place] [address] Sep, Bipolar 1 disorder, mixed F3 1.60 [place] [id number] [place] [address] Sep, Bipolar 1 disorder, mixed F3 1.60 and Generalized anxiety disorder F41.1 [place] [id number] [place] [address] Aug, [facility] [address] [facility] [id number] [address] [place] [address] Aug, Bipolar 1 disorder, mixed F3 1.60 [facility] [id number] [place] [address] Aug, Bipolar 1 disorder, mixed F3 1.60 [facility] [id number] [place] [address] Aug, [facility] [id number] [place] [address] Aug, Generalized anxiety disorder F41.1 [facility] [address] [facility] [id number] [address] [place] [address] Aug, Bipolar 1 disorder, mixed F3 1.60 [facility] [id number] [place] [address] Aug, Plantar wart of right foot B 07.0 [facility] [id number] [place] [address] Aug, Bipolar 1 disorder, mixed F3 1.60 [facility] [address] [facility] [id number] [address] [place] [address] Jul, Bipolar 1 disorder, mixed F3 1.60 [facility] [address] [facility] [id number] [address] [place] [address] Jul, [facility] [address] [facility] [id number] [address] [place] [address] Jul, Bipolar 1 disorder, mixed F3 1.60 [facility] [address] [facility] [id number] [address] [place] [address] 09 Jul, 2017 Generalized anxiety disorder F41.1 [facility] [address] [facility] [id number] [address] [place] [address] 07 Jul, 2017 Bipolar 1 disorder, mixed F3 1.60 [facility] [id number] [place] [address] Jul, Acute left-sided low back pa in with left-sided sciatica M54.42 [facility] [address] [facility] [id number] [address] [place] [phone] 05 Jul, 2017 Coccydynia M53.3 [facility] [address] [facility] [id number] [address] [place] [address] Jun, Bipolar 1 disorder, mixed F3 1.60 [facility] [address] [facility] [id number] [address] [place] [address] Jun, Acute nasopharyngitis J00 [facility] [address] [facility] [id number] [address] [place] [address] Jun, Bipolar 1 disorder, mixed F3 1.60 [facility] [address] [facility] [id number] [address] [place] [address] Jun, Fibromyalgia M79.7 [facility] [address] [facility] [id number] [address] [place] [address] Jun, Bipolar 1 disorder, mixed F3 1.60 [facility] [id number] [place] [address] Jun, Fibromyalgia M79.7 and Bipol ar 1 disorder, mixed F31.60 [facility] [id number] [place] [address] May, Bipolar 1 disorder, mixed F3 1.60 ; Generalized anxiety disorder F41.1 and Other longterm (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 Z79.899 [facility] [id number] [place] [address] May, Bipolar 1 disorder, mixed F3 1.60 [facility] [address] [address] May, Cough R05 and Body aches R52 [facility] [address] [address] May, Bladder spasm N32.89 [address]u te cystitis without hematuria N30.00 [place] [address] [address] May, Bipolar 1 disorder, mixed F3 1.60 [place] [address] [address] Apr, [place] [address] [address] Apr, Major depressive disorder, r ecurrent episode, moderate F33.1 and Encounter for immunization Z23 [facility] [id number] [place] [address] Apr, Bipolar 1 disorder, mixed F3 1.60 [place] [address] [place] [address] [id number] [place] [address] Apr, Bipolar 1 disorder, mixed F3 1.60 [place] [address] [place] [id number] [place] [address] Apr, Bipolar 1 disorder, mixed F3 1.60 [facility] [id number] [place] [address] 13 Apr, 2017 Yeast vaginitis B37.3 [facility] [address] [facility] [id number] [address] [place] [address] 09 Apr, 2017 Bipolar 1 disorder, mixed F3 1.60 [facility] [id number] [place] [address] 07 Apr, 2017 Cellulitis L03.[address] for immunization Z23 [facility] [id number] [place] [address] Apr, Bipolar 1 disorder, mixed F3 1.60 [facility] [id number] [place], [place] [address] Mar, Bipolar 1 disorder, mixed F3 1.60 [facility] [address] [address] Mar, Bipolar 1 disorder, mixed F3 1.60 [facility] [id number] [place] [address] Mar, Imbalance R26.89 [address] Encount er for immunization Z23 [facility] [id number] [place] [address] Mar, Generalized anxiety disorder F41.1 [facility] [address] [id number] [place] [address] Mar, Bipolar 1 disorder, mixed F3 1.60 [facility] [id number] [place] [address] Mar, Generalized anxiety disorder F41.1 [facility] [id number] [place] [address] Mar, Bipolar 1 disorder, mixed F3 1.60 [facility] [address] [id number] [place] [address] Mar, Bipolar 1 disorder, mixed F3 1.60 [place] [address] [facility] [id number] [address] [place] [address] 27 Feb, 2017 Bipolar 1 disorder, mixed F3 1.60 [place] [address] [place] [id number] [place] [address] Feb, Bipolar 1 disorder, mixed F3 1.60 and Generalized anxiety disorder F41.1 [place] [address] [place] [id number] [place] [address] Feb, Gastritis without bleeding, unspecified chronicity, unspecified gastritis type K29.70 ; Hammer toe of right foot M20.41 and Other viral warts B07.8 [place] [address] [place] [id number] [place] [address] 20 Feb, 2017 Bipolar 1 disorder, mixed F3 1.60 [place] [address] [place] [id number] [place] [address] Feb, Bipolar 1 disorder, mixed F3 1.60 [place] [id number] [place] [address] 05 Feb, 2017 Bipolar 1 disorder, mixed F3 1.60 [place] [address] [place] [id number] [place] [address] Jan, Encounter for screening mamm ogram for breast cancer Z12.31 ; Other viral warts B07.8 and Allergic rhinitis J30.9 [place] [address] [place] [id number] [place] [address] Jan, Bipolar 1 disorder, mixed F3 1.60 [place] [address] [place] [id number] [place] [address] Jan, Bipolar 1 disorder, mixed F3 1.60 [place] [address] [place] [id number] [place] [address] Jan, [place] [address] [place] [id number] [place] [address] Jan, Bipolar 1 disorder, mixed F3 1.60 [place] [address] [place] [id number] [place] [address] Jan, Bipolar 1 disorder, mixed F3 1.60 [place] [address] [address] Jan, Allergic rhinitis J30.9 ; He maturia R31.9 and Colon cancer screening Z12.11 [place] [address] [address] Dec, Bipolar 1 disorder, mixed F3 1.60 [place] [address] [address] Dec, Bipolar 1 disorder, mixed F3 1.60 ; Generalized anxiety disorder F41.1 and Other longterm (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 Z79.899 [place] [address] [address] Dec, Bipolar 1 disorder, mixed F3 1.60 [place] [address] [address] Dec, Bipolar 1 disorder, mixed F3 1.60 [place] [address] [address] Dec, Bipolar 1 disorder, mixed F3 1.60 [place] [address] [address] Dec, Low back pain M54.5 and Recu rrent urinary tract infection N39.0 [place] [address] [address] [place] [id number] [place] [id number] Nov, Bipolar 1 disorder, mixed F3 1.60 [place] [address] [address] Nov, Bipolar 1 disorder, mixed F3 1.60 [place] [address] [address] Nov, Bipolar 1 disorder, mixed F3 1.60 [place] [address] [address] Nov, Bipolar 1 disorder, mixed F3 1.60 [place] [address] [address] Nov, [place] [address] [address] Nov, Anesthesia of skin R20.0 ; F requent UTI N39.0 ; Tobacco abuse Z72.0 and Colon cancer screening Z12.11 [place] [address] [address] Nov, Bipolar 1 disorder, mixed F3 1.60 [place] [address] [address] [place] [id number] October, Bipolar 1 disorder, mixed F3 1.60 [place] [address] [address] October, Bipolar 1 disorder, mixed F3 1.60 [place] [address] [address] October, Bipolar 1 disorder, mixed F3 1.60 [place] [address] [address] October, Bipolar 1 disorder, mixed F3 1.60 [place] [address] [address] October, Bipolar 1 disorder, mixed F3 1.60 [place] [address] [address] October, Cervicalgia M54.2 and Bipola r 1 disorder, mixed F31.60 [place] [address] [address] October, Hypertension I10 ; Hyperlipi demia, unspecified hyperlipidemia type E78.5 and Family history of thyroid disease Z83.49 [place] [address] [place] [address] October, [place] [address] [address] October, Hypertension I10 ; Hyperlipi demia, unspecified hyperlipidemia type E78.5 and Family history of thyroid problem Z83.49 [place] [address] [address] [place] [id number] [address] [place] [address] October, Bipolar 1 disorder, mixed F3 1.60 [place] [address] [address] Sep, Bipolar 1 disorder, mixed F3 1.60 [place] [address] [address] Sep, Bipolar 1 disorder, mixed F3 1.60 [place] [address] [address] Sep, Bipolar 1 disorder, mixed F3 1.60 [place] [address] [address] Sep, History of colon polyps Z86. 010 and Hematochezia K92.1 [place] [address] [address] Sep, Major depressive disorder, r ecurrent episode, moderate F33.1 [place] [address] [place] [id number] [address] [place] [address] Sep, Bipolar 1 disorder, mixed F3 1.60 [place] [address] [place] [address] Aug, Hot flashes due to menopause N95.1 [place] [address] [address] [place] [id number] [address] [place] [address] Aug, Bipolar 1 disorder, mixed F3 1.60 [place] [address] [place] [id number] [address] [place] [address] Aug, [place] [address] [address] Aug, Bipolar 1 disorder, mixed F3 1.60 [place] [address] [place] [address] Aug, Bipolar 1 disorder, mixed F3 1.60 [place] [address] [address] Aug, Hot flashes due to menopause N95.1 ; Cervicalgia M54.2 and Ataxia R27.0 [place] [address] [address] Jul, Bipolar 1 disorder, mixed F3 1.60 [place] [address] [place] [address] Jul, Bipolar 1 disorder, mixed F3 1.60 [place] [address] [address] Jul, Bipolar 1 disorder, mixed F3 1.60 [place] [address] [address] Jul, Bipolar 1 disorder, mixed F3 1.60 [place] [address] [address] Jul, Bipolar 1 disorder, mixed F3 1.60 [place] [address] [address] Jul, Cervicalgia M54.2 ; Tremor R 25.1 ; Hearing abnormally acute, unspecified laterality H93.239 ; Alopecia L65.9 ; Encounter for immunization Z23 and Family history of thyroid disease Z83.49 [place] [address] [place] [address] Jul, Bipolar 1 disorder, mixed F3 1.60 [place] [address] [address] Jun, [place] [address] [place] [address] Jun, Hearing disorder, unspecifie d laterality H93.299 [facility] [address] [facility] [id number] [address] [place] [address] Jun, Bipolar 1 disorder, mixed F3 1.60 [facility] [address] [facility] [id number] [address] [place] [address] Jun, Bipolar 1 disorder, mixed F3 1.60 [facility] [address] [facility] [id number] [address] [place] [address] Jun, Allergic rhinitis J30.9 [facility] [address] [facility] [id number] [address] [place] [address] Jun, Bipolar 1 disorder, mixed F3 1.60 [facility] [address] [facility] [id number] [address] [place] [address] Jun, Bipolar 1 disorder, mixed F3 1.60 [facility] [address] [facility] [id number] [address] [place] [address] Jun, Allergic rhinitis J30.9 [facility] [address] [facility] [id number] [address] [place] [address] Jun, Allergic rhinitis J30.9 [facility] [address] [facility] [id number] [address] [place] [address] Jun, Bipolar 1 disorder, mixed F3 1.60 [facility] [address] [facility] [id number] [address] [place] [address] May, Bipolar 1 disorder, mixed F3 1.60 [facility] [address] [facility] [id number] [address] [place] [address] May, Bipolar 1 disorder, mixed F3 1.60 [facility] [address] [facility] [id number] [address] [place] [address] May, [facility] [address] [facility] [id number] [address] [place] [address] May, Bipolar 1 disorder, mixed F3 1.60 [facility] [address] [facility] [id number] [address] [place] [address] May, Bipolar 1 disorder, mixed F3 1.60 [facility] [address] [facility] [id number] [address] [place] [address] May, [facility] [address] [facility] [id number] [address] [place] [address] May, [facility] [address] [facility] [id number] [address] [place] [address] May, [facility] [address] [place] [id number] [place] [address] May, Abdominal pain, unspecified location R10.9 [facility] [address] [place] [id number] [address] [place] [address] May, [facility] [address] [place] [id number] [place] [address] Apr, Hematuria R31.9 ; Ataxia R27 .0 and Hearing loss, unspecified laterality H91.90 [facility] [address] [place] [id number] [address] [place] [address] Apr, Bipolar 1 disorder, mixed F3 1.60 [facility] [address] [facility] [id number] [address] [place] [address] Apr, Acute effusion of both middl e ears H65.193 [facility] [address] [facility] [id number] [address] [place] [address] Apr, Hematuria R31.9 and Pyelonep hritis N12 [facility] [address] [place] [id number] [address] [place] [address] Apr, [facility] [address] [facility] [id number] [address] [place] [address] Mar, Bipolar 1 disorder, mixed F3 1.60 [facility] [address] [place] [id number] [address] [place] [id number] Mar, [place] [address] [place] [id number] [address] [place] [address] Mar, Bipolar 1 disorder, mixed F3 1.60 [place] [address] [facility] [id number] [address] [place] [address] Mar, Bipolar 1 disorder, mixed F3 1.60 [place] [address] [place] [id number] [address] [place], [place] [id number] Mar, Encounter for immunization Z 23 and Gastritis without bleeding, unspecified chronicity, unspecified gastritis type K29.70 [place] [address] [place] [id number] [address] [place], [place] [id number] Mar, Bipolar 1 disorder, mixed F3 1.60 and Grief F43.20 [place] [address] [place] [id number] [address] [place] [address] Mar, Gastritis without bleeding, unspecified chronicity, unspecified gastritis type K29.70 [place] [address] [place] [id number] [address] [place] [address] Mar, Bipolar 1 disorder, mixed F3 1.60 [place] [address] [place] [id number] [address] [place] [address] Mar, Gastritis without bleeding, unspecified chronicity, unspecified gastritis type K29.70 [place] [address] [place] [id number] [address] [place] [address] Mar, [place] [address] [facility] [id number] [address] [place] [address] Feb, Bipolar 1 disorder, mixed F3 1.60 [place] [address] [place] [id number] [address] [place] [address] Feb, Bipolar 1 disorder, mixed F3 1.60 and Grief F43.20 [place] [address] [facility] [id number] [address] [place] [address] Feb, Gastritis without bleeding, unspecified chronicity, unspecified gastritis type K29.70 [facility] [address] [place] [id number] [address] [place] [address] 14 Feb, 2016 Bipolar 1 disorder, mixed F3 1.60 [facility] [address] [place] [id number] [address] [place] [address] Feb, Gastroesophageal reflux dise ase, esophagitis presence not specified K21.9 [facility] [address] [place] [address] Jan, Bipolar 1 disorder, mixed F3 1.60 [facility] [address] Jan, Bipolar 1 disorder, mixed F3 1.60 and Unsteady gait R26.81 [place] [address] [address] Jan, Bipolar 1 disorder, mixed F3 1.60 [facility] [address] [address] Jan, Bipolar 1 disorder, mixed F3 1.60 and Other longterm (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 Z79.899 [place] [address] [place] [address] Jan, Bipolar 1 disorder, mixed F3 1.60 [facility] [address] [address] Jan, Bipolar 1 disorder, mixed F3 1.60 [facility] [address] Jan, Bipolar 1 disorder, mixed F3 1.60 ; Grief F43.20 and Other 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 designer (current) drug therapy Z79.899 [place] [address] [place] [address] Jan, Bipolar 1 disorder, mixed F3 1.60 [place] [address] [place] [address] Dec, [place] [id number] [place] [address] Dec, Bipolar 1 disorder, mixed F3 1.60 ; Vitamin D deficiency, unspecified E55.9 ; H/O allergic rhinitis Z87.09 ; Other chronic pain G89.29 and Dorsalgia, unspecified M54.9 [facility] [address] [place] [address] Dec, [facility] [address] [address] Dec, Bipolar 1 disorder, mixed F3 1.60 [place] [address] [address] Dec, Major depressive disorder, r ecurrent episode, moderate F33.1 [place] [address] [address] Dec, Major depressive disorder, r ecurrent episode, moderate F33.1 [place] [address] [place] [address] Nov, [place] [address] [address] Nov, Bipolar 1 disorder, mixed F3 1.60 [place] [address] [address] Nov, Major depressive disorder, r ecurrent episode, moderate F33.1 [place] [address] [place] [address] Nov, Cervicalgia M54.2 ; Arthralg ia of hip, unspecified laterality M25.559 ; Allergic rhinitis J30.9 and Hormone replacement therapy Z79.890 [facility] [address] [place] [id number] [address] [place] [address] Nov, Other seasonal allergic rhin itis J30.2 [facility] [address] [place] [address] October, Major depressive disorder, r ecurrent episode, moderate F33.1 [place] [id number] [id number] [address] [place] [address] October, Major depressive disorder, r ecurrent episode, moderate F33.1 and Arthralgia of hip, unspecified laterality M25.559 [place] [address] [facility] [id number] [address] [place] [address] October, Grief F43.20 ; Hypertension I10 ; Hyperlipidemia, unspecified hyperlipidemia type E78.5 ; Other chronic pain G89.29 and Allergic rhinitis, unspecified allergic rhinitis type J30.9 [place] [address] [facility] [id number] [address] [place] [address] October, Major depressive disorder, r ecurrent episode, moderate F33.1 [place] [address] [facility] [id number] [address] [place] [address] Sep, Major depressive disorder, r ecurrent episode, moderate F33.1 [place] [address] [id number] [address] [place] [address] Sep, [place] [address] [facility] [id number] [address] [place] [address] Sep, Major depressive disorder, r ecurrent episode, moderate F33.1 [place] [address] [facility] [id number] [address] [place] [address] Sep, Grief F43.20 [place] [address] [facility] [id number] [address] [place] [address] Aug, Major depressive disorder, r ecurrent episode, moderate F33.1 [place] [address] [facility] [id number] [address] [place] [address] Aug, Bipolar 1 disorder, mixed F3 1.60 [place] [address] [facility] [id number] [address] [place] [address] Aug, Allergic rhinitis J30.9 ; Ce rvicalgia M54.2 and Low back pain M54.5 [facility] [address] [facility] [id number] [address] [place] [address] Aug, Major depressive disorder, r ecurrent episode, moderate F33.1 [facility] [address] [facility] [id number] [address] [place] [address] Aug, Sinusitis J32.9 and Tobacco 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 [facility] [address] [facility] [id number] [address] [place] [address] Aug, [facility] [address] [place] [id number] [address] [place] [address] Aug, Depressive disorder, not els ewhere classified F32.9 ; Hormone replacement therapy Z79.[address] scan, head R93.0 [facility] [address] [place] [address] Aug, Major depressive disorder, r ecurrent episode, moderate F33.1 [facility] [address] [place] [id number] [address] [place] [address] Jul, Major depressive disorder, r ecurrent episode, moderate F33.1 [facility] [address] [facility] [id number] [address] [place] [address] Jul, Abdominal pain R10.9 and Hyp ertension I10 [facility] [address] [facility] [id number] [address] [place] [address] Jul, [facility] [address] [place] [id number] [address] [place] [address] Jul, Major depressive disorder, r ecurrent episode, moderate F33.1 [facility] [address] [place] [id number] [address] [place] [address] Jul, [facility] [address] [facility] [id number] [address] [place] [address] Jul, [facility] [address] [place] [id number] [address] [place] [address] Jun, [facility] [address] [id number] [address] [place] [address] Jun, Depressive disorder, not els ewhere classified F32.9 [facility] [address] [id number] [address] [place] [address] Jun, [facility] [address] [id number] [address] [place] [address] Jun, [facility] [address] [id number] [address] [place] [address] Jun, Arthralgia of hip, unspecifi ed laterality M25.559 ; Bruising, spontaneous R23.3 and Night sweats R61 [facility] [address] [id number] [address] [place] [address] Jun, [facility] [address] [facility] [id number] [address] [place] [address] Jun, [facility] [address] [id number] [address] [place] [address] May, [facility] [address] [id number] [address] [place] [address] May, Myalgia M79.1 and Screening, lipid Z13.220 [facility] [address] [facility] [id number] [address] [place] [address] Apr, Status post cervical spinal fusion Z98.1 ; Fibromyalgia M79.7 and Unsteady gait R26.81 [facility] [address] [id number] [address] [place] [address] Nov, [facility] [address] [facility] [id number] [address] [place] [address] Nov, [facility] [address] [id number] [address] [place] [address] October, [facility] [address] [facility] [id number] [address] [place] [address] October, [facility] [address] [id number] [address] [place] [address], [place] [address] October, [facility] [address] [id number] [address] [place] [address] October, [facility] [address] [id number] [address] [place] [address] October, [facility] [address] [id number] [address] [place] [address] October, Dysuria 788.1 ; Nausea 787.0 2 and Urinary tract infection 599.0 [facility] [address] [id number] [address] [place] [address], [place] [address] Sep, [facility] [address] [id number] [address] [place] [address] Sep, [facility] [address] [id number] [address] [place] [address] Aug, [facility] [address] [id number] [address] [place] [address] Aug, [facility] [address] [id number] [address] [place] [address] Aug, [facility] [address] [id number] [address] [place] [phone] Aug, [facility] [address] [id number] [address] [place] [address] Aug, [facility] [address] [id number] [address] [place] [address] Aug, [facility] [address] [id number] [address] [place] [address] Aug, [facility] [address] [id number] [address] [place] [address] Aug, [facility] [address] [id number] [address] [place] [address] 19 Aug, 2014 [facility] [address] [id number] [address] [place] [address], [place] [address] 18 Aug, 2014 [facility] [address] [id number] [address] [place] [address], [place] [address] 18 Aug, 2014 [facility] [address] [id number] [address] [place] [address], [place] [address] 13 Aug, 2014 [facility] [address] [id number] [address] [place] [address], [place] [address] 13 Aug, 2014 [facility] [address] [id number] [address] [place] [address], [place] [address] Aug, [facility] [address] [id number] [address] [place] [address], [place] [address] Aug, [facility] [address] [id number] [address] [place] [address], [place] [address] Aug, [facility] [address] [id number] [address] [place] [address], [place] [address] Aug, [facility] [address] [id number] [address] [place] [address], [place] [address] 05 Aug, 2014 [facility] [address] [id number] [address] [place] [address], [place] [address] 05 Aug, 2014 [facility] [address] [id number] [address] [place] [address], [place] [address] Aug, [facility] [address] [id number] [address] [place] [address], [place] [address] Aug, [facility] [address] [id number] [address] [place] [address], [place] [address] Aug, [facility] [address] [id number] [address] [place] [address], [place] [address] Jul, [facility] [address] [id number] [address] [place] [address], [place] [address] Jul, [facility] [address] [id number] [address] [place] [address], [place] [address] Jul, 2014 [facility] [address] [id number] [address] [place] [address], [place] [address] Jul, 2014 [facility] [address] [id number] [address] [place] [address], [place] [address] Jul, 2014 [facility] [address] [id number] [address] [place] [address], [place] [id number] Jul, 2014 [facility] [address] [id number] [address] [place] [address], [place] [id number] Jul, 2014 [facility] [address] [id number] [address] [place] [address], [place] [id number] Jul, 2014 [facility] [address] [id number] [address] [place] [address], [place] [id number] Jul, [facility] [address] [id number] [address] [place] [address], [place] [id number] Jul, [facility] [address] [id number] [address] [place] [address], [place] [id number] Jul, [facility] [address] [id number] [address] [place] [address], [place] [id number] Jul, [facility] [address] [id number] [address] [place] [id number] Jul, [facility] [address] [id number] [address] [place] [id number] Jul, [facility] [address] [id number] [address] [place] [address], [place] [id number] Jun, [facility] [address] [id number] [address] [place] [id number] Jun, [facility] [address] [id number] [address] [place] [id number] Jun, [facility] [address] [id number] [address] [place] [id number] Jun, [facility] [address] [id number] [address] [place] [address], [place] [id number] Jun, [facility] [address] [id number] [address] [place] [address], [place] [id number] Jun, [facility] [address] [id number] [address] [place] [address], [place] [id number] May, [facility] [address] [id number] [address] [place] [address], [place] [id number] May, [facility] [address] [id number] [address] [place] [address], [place] [id number] May, [facility] [address] [id number] [address] [place] [address], [place] [id number] May, [facility] [address] [id number] [address] [place] [address], [place] [address] May, [facility] [address] [id number] [address] [place] [address], [place] [id number] May, [facility] [address] [id number] [address] [place] [address], [place] [id number] Apr, [facility] [address] [id number] [address] [place] [address], [place] [id number] Apr, [facility] [address] [id number] [address] [place] [address], [place] [id number] Apr, [facility] [address] [id number] [address] [place] [address], [place] [id number] Apr, [facility] [address] [id number] [address] [place] [address], [place] [id number] Apr, [facility] [address] [id number] [address] [place] [address], [place] [id number] Apr, [facility] [address] [id number] [address] [place] [address], [place] [id number] Mar, [facility] [address] [id number] [address] [place] [address], [place] [id number] Mar, 2013 [facility] [address] [id number] [address] [place] [address], [place] [address] Mar, 2013 [facility] [address] [id number] [address] [place] [address], [place] [address] Mar, 2013 [facility] [address] [id number] [address] [place] [address], [place] [address] Mar, 2013 [facility] [address] [id number] [address] [place] [address], [place] [address] Mar, 2013 [facility] [address] [id number] [address] [place] [address], [place] [address] Mar, 2013 [facility] [address] [id number] [address] [place] [address], [place] [address] Mar, 2013 [facility] [address] [id number] [address] [place] [address], [place] [address] Mar, 2013 [facility] [address] [id number] [address] [place] [address], [place] [address] Mar, [facility] [address] [id number] [address] [place] [address], [place] [address] Mar, 2013 [facility] [address] [id number] [address] [place] [address], [place] [address] Mar, [facility] [address] [id number] [address] [place] [address], [place] [address] 30 Feb, 2013 [facility] [address] [id number] [address] [place] [address], [place] [address] 29 Feb, 2013 [facility] [address] [id number] [address] [place] [address], [place] [address] 29 Feb, 2013 [facility] [address] [id number] [address] [place] [address], [place] [address] 23 Feb, 2013 [facility] [address] [id number] [address] [place] [address], [place] [address] Feb, [facility] [address] [id number] [facility] [place] [place] [address] Feb, [facility] [address] [id number] [address] [place] [address], [place] [address] Feb, [facility] [address] [id number] [address] [place] [address], [place] [address] Jan, [facility] [address] [id number] [address] [place] [address], [place] [address] Jan, [facility] [address] [id number] [address] [place] [address], [place] [address] Jan, [facility] [address] [id number] [address] [place] [address], [place] [address] Dec, [facility] [address] [id number] [address] [place] [address], [place] [address] Dec, [facility] [address] [id number] [address] [place] [address], [place] [address] Dec, [facility] [address] [id number] [address] [place] [address], [place] [address] Dec, [facility] [address] [id number] [address] [place] [address], [place] [address] Sep, [facility] [address] [id number] [address] [place] [address], [place] [address] Sep, [facility] [address] [id number] [address] [place] [address], [place] [address] Sep, [facility] [address] [id number] [address] [place] [address], [place] [address] Sep, [facility] [address] [id number] [address] [place] [address], [place] [address] Sep, [facility] [address] [id number] [address] [place] [address], [place] [address] Sep, [facility] [address] [id number] [address] [place] [address], [place] [address] Sep, [facility] [address] [id number] [address] [place] [address], [place] [address] Sep, [facility] [address] [id number] [address] [place] [address], [place] [address] Aug, [facility] [address] [id number] [address] [place] [address], [place] [address] Aug, [facility] [address] [id number] [address] [place] [address], [place] [address] May, [facility] [address] [id number] [address] [place] [address], [place] [address] May, [facility] [address] [id number] [address] [place] [address], [place] [address] Apr, [facility] [address] [id number] [address] [place] [address], [place] [address] Apr, [facility] [address] [id number] [address] [place] [address], [place] [address] Apr, [facility] [address] [id number] [address] [place] [address], [place] [address] Apr, [facility] [address] [id number] [address] [place] [address], [place] [address] Apr, [facility] [address] [id number] [address] [place] [address], [place] [address] Apr, [facility] [address] [id number] [address] [place] [address], [place] [address] May, [facility] [address] [id number] [address] [place] [address], [place] [address] May, [facility] [address] [id number] [address] [place] [address], [place] [address] May, [facility] [address] [id number] [address] [place] [address], [place] [address] May, [facility] [address] [id number] [address] [place] [address], [place] [address] May, [facility] [address] [id number] [address] [place] [address], [place] [address] May, [facility] [address] [id number] [address] [place] [address], [place] [address] Apr, [facility] [address] [id number] [address] [place] [address], [place] [address] Apr, [facility] [address] [id number] [address] [place] [address], [place] [address] Apr, [facility] [address] [id number] [address] [place] [address], [place] [address] Apr, [facility] [address] [id number] [address] [place] [address], [place] [address] Apr, [facility] [address] [id number] [address] [place] [address], [place] [address] Apr, [facility] [address] [id number] [address] [place] [address], [place] [address] Apr, [facility] [address] [id number] [address] [place] [address], [place] [address] Apr, [facility] [address] [id number] [address] [place] [address], [place] [address] Apr, [facility] [address] [id number] [address] [place] [address], [place] [address] Apr, [facility] [address] [id number] [address] [place] [address], [place] [address] Mar, [facility] [address] [id number] [address] [place] [address], [place] [address] Mar, [facility] [address] [id number] [address] [place] [address], [place] [address] Mar, [facility] [address] [id number] [address] [place] [address], [place] [address] Mar, [facility] [address] [id number] [address] [place] [address], [place] [address] Mar, [facility] [address] [id number] [address] [place] [address], [place] [address] Mar, [facility] [address] [id number] [address] [place] [address], [place] [address] Mar, [facility] [address] [id number] [address] [place] [address], [place] [address] Mar, [facility] [address] [id number] [address] [place] [address], [place] [address] Mar, [facility] [address] [id number] [address] [place] [address], [place] [address] Feb, [facility] [address] [id number] [address] [place] [address], [place] [address] 16 Feb, 2012 [facility] [address] [id number] [address] [place] [address], [place] [address] Feb, [facility] [address] [id number] [address] [place] [address], [place] [address] Jan, [facility] [address] [id number] [address] [place] [address], [place] [address] Jan, [facility] [address] [id number] [address] [place] [address], [place] [address] Jan, [facility] [address] [id number] [address] [place] [address], [place] [address] Jan, [facility] [address] [id number] [address] [place] [address], [place] [address] Jan, [facility] [address] [id number] [address] [place] [address], [place] [address] Jan, [facility] [address] [id number] [address] [place] [address], [place] [address] Jan, [facility] [address] [id number] [address] [place] [address], [place] [address] Jan, [facility] [address] [id number] [address] [place] [address], [place] [address] Jan, [facility] [address] [id number] [address] [place] [address], [place] [address] Jan, [facility] [address] [id number] [address] [place] [address], [place] [address] Dec, [facility] [address] [id number] [address] [place] [address], [place] [address] Dec, [facility] [address] [id number] [address] [place] [address], [place] [address] Dec, [facility] [address] [id number] [address] [place] [address], [place] [address] Dec, [facility] [address] [id number] [address] [place] [address], [place] [address] Nov, [facility] [address] [id number] [address] [place] [address], [place] [address] Nov, [facility] [address] [id number] [address] [place] [address], [place] [address] Nov, [facility] [address] [id number] [address] [place] [address], [place] [address] October, [facility] [address] [id number] [address] [place] [address], [place] [address] October, [facility] [address] [id number] [address] [place] [address], [place] [address] October, [facility] [address] [id number] [address] [place] [address], [place] [address] October, [facility] [address] [id number] [address] [place] [address], [place] [address] October, [facility] [address] [id number] [address] [place] [address], [place] [address] October, [facility] [address] [id number] [address] [place] [address] Aug, [facility] [address] [id number] [address] [place] [address] Mar, [facility] [address] [id number] [address] [place] [id number] Nov, [facility] [address] [id number] [address] [place] [address] May, [facility] [address] [id number] [address] [place] [id number] May, [facility] [address] [facility] [id number] [address] [place] [id number] Apr, [facility] [address] [facility] [id number] [address] [place] [id number] Mar, [facility] [address] [facility] [id number] [address] [place] [address] Mar, IMMUNIZATIONS No Known Immunizations SOCIAL HISTORY Never Assessed REASON FOR VISIT [place]MR[place] [place] C[place] VITAL SIGNS MEDICATIONS Unknown [...]
--- OUTSIDE RECORDS SUMMARY | 2019-06-19 05:22 | XMS REPORT ---
Author Author Sydnie Huston Doctor Organization [facility] Address Unknown Phone Unavailable Care Team Providers Care Technical Operations Specialist Name Role Phone Migration, Doctor Unavailable Unavailable PROBLEMS Type Condition ICD9-CM Code AWE94-YF Code Onset Dates Condition S tatus SNOMED Code Problem Hormone replacement therapy Z79.890 Ac tive 868952042 Problem Sensorineural hearing loss (SNHL) of both ears H90 .3 Active 429382033 Problem Abnormal CT scan, head R93.0 Active 025495604 Problem Arthralgia of hip, unspecified laterality M25.559 Active 30784770 Problem Bruising, spontaneous R23.3 Active 039663842 Problem Hypertension I10 Active 3083645 3 Problem Night sweats R61 Active 9482894 0 Problem Hammer toe of right foot M20.41 Activ e 476308277 Problem Hematuria, unspecified type R31.9 Ac tive 71542745 Problem Bipolar 1 disorder, mixed F31.60 Acti ve 81438608 Problem Gastritis without bleeding, unspecified chronicity, unspecified gastritis type K29.70 Active 415947694 Problem Hearing loss, unspecified laterality H91.90 Active 20401723 Problem Ataxia R27.0 Active 53372618 Problem Hot flashes due to menopause N95.1 A ctive 948930430 Problem Allergic rhinitis J30.9 Active 61 404282 Problem Generalized anxiety disorder F41.1 A ctive 91569641 Problem History of colon polyps Z86.010 Active 247976021 Problem Imbalance R26.89 Active 449602908 Problem Major depressive disorder, recurrent episode, moderate F33.1 Active 610384015 Problem Fibromyalgia M79.7 Active 5195659 7 Problem Slow transit constipation K59.01 Acti ve 55391800 Problem Grief F43.20 Active 45366692 Problem Tobacco use disorder F17.200 Active 811959597 Problem Hyperlipidemia, unspecified hyperlipidemia type E7 8.5 Active 57351703 Problem Other chronic pain G89.29 Active 8 8018857 Problem Bladder spasm N32.89 Active 409010 006 Problem Acute left-sided low back pain with left-sided sciatica M54.42 Active 907313751 Problem Sciatica of left side M54.32 Active 93180807 Problem Plantar wart of right foot B07.0 Act mitchell [id number] ALLERGIES No Information ENCOUNTERS Encounter Location Date Diagnosis [facility] [id number] [place] [address] Sep, [facility] [id number] [place] [address] Sep, [facility] [id number] [place] [address] Sep, [facility] [address] [address] Sep, [facility] [address] [address] Sep, [facility] [address] [address] Sep, Gastritis without bleeding, unspecified chronicity, unspecified gastritis type K29.70 [place] [id number] [place] [address] Sep, Exercise counseling Z71.82 [place] [id number] [place] [address] Aug, Exercise counseling Z71.82 [place] [id number] [place] [address] Aug, Bipolar 1 disorder, mixed F3 1.60 [place] [id number] [place] [address] Aug, Exercise counseling Z71.82 [facility] [id number] [place] [address] Aug, Bipolar 1 disorder, mixed F3 1.60 [place] [id number] [place] [address] Aug, Gastritis without bleeding, unspecified chronicity, unspecified gastritis type K29.70 ; Tobacco abuse Z72.0 ; Generalized anxiety disorder F41.1 and Weight gain R63.5 [place] [id number] [place] [address] Aug, Bipolar 1 disorder, mixed F3 1.60 ; Generalized anxiety disorder F41.1 and Tobacco use disorder F17.200 [place] [id number] [place] [address] Jul, Bipolar 1 disorder, mixed F3 1.60 [place] [id number] [place] [address] Jul, [place] [id number] [place] [address] Jul, Bipolar 1 disorder, mixed F3 1.60 [place] [id number] [place] [address] Jul, Allergic rhinitis J30.9 ; Ma darion depressive disorder, recurrent episode, moderate F33.1 and Tobacco 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 [place] [id number] [place] [address] Jun, [place] [id number] [place] [address] Jun, [place] [id number] [place] [address] Jun, Bipolar 1 disorder, mixed F3 1.60 [place] [id number] [place] [address] Jun, Bipolar 1 disorder, mixed F3 1.60 [place] [id number] [place] [address] Jun, Bipolar 1 disorder, mixed F3 1.60 [place] [id number] [place] [address] Jun, Generalized anxiety disorder F41.1 ; Tobacco abuse Z72.0 and Major depressive disorder, recurrent episode, moderate F33.1 [place] [id number] [place] [address] May, Bipolar 1 disorder, mixed F3 1.60 [facility] [id number] [place] [address] May, Bipolar 1 disorder, mixed F3 1.60 and Generalized anxiety disorder F41.1 [place] [id number] [place] [address] May, Bipolar 1 disorder, mixed F3 1.60 [place] [id number] [place] [address] May, Allergic rhinitis J30.9 [place] [id number] [place] [address] May, Bipolar 1 disorder, mixed F3 1.60 [place] [id number] [place] [address] May, [place] [id number] [place] [address] Apr, Allergic rhinitis J30.9 ; Dy sfunction of both eustachian tubes H69.83 ; History of bladder surgery Z98.890 and Cervicalgia M54.2 [place] [id number] [place] [address] Mar, Bipolar 1 disorder, mixed F3 1.60 [place] [id number] [place] [address] Mar, [place] [id number] [place] [address] Mar, Slow transit constipation K5 9.01 ; Encounter for immunization Z23 and Generalized anxiety disorder F41.1 [facility] [id number] [place] [address] Feb, Bipolar 1 disorder, mixed F3 1.60 [facility] [address] [id number] [address] [place] [address] 26 Feb, 2018 Allergic rhinitis J30.9 [facility] [address] [id number] [address] [place] [address] 24 Feb, 2018 Bipolar 1 disorder, mixed F3 1.60 [facility] [address] [id number] [address] [place] [address] 20 Feb, 2018 Bipolar 1 disorder, mixed F3 1.60 and Generalized anxiety disorder F41.1 [facility] [address] [id number] [address] [place] [address] 13 Feb, 2018 Bipolar 1 disorder, mixed F3 1.60 [facility] [address] [facility] [id number] [address] [place] [address] 11 Feb, 2018 Allergic rhinitis J30.9 [facility] [address] [id number] [address] [place] [address] 05 Feb, 2018 [facility] [address] [id number] [address] [place] [address] Jan, Bipolar 1 disorder, mixed F3 1.60 [facility] [address] [facility] [id number] [address] [place] [address] Jan, Low back pain M54.5 ; Hyperl ipidemia, unspecified hyperlipidemia type E78.5 and Bipolar 1 disorder, mixed F31.60 [facility] [address] [facility] [id number] [address] [place] [address] Jan, Bipolar 1 disorder, mixed F3 1.60 [facility] [address] [facility] [id number] [address] [place] [address] Jan, Bipolar 1 disorder, mixed F3 1.60 [facility] [address] [facility] [id number] [address] [place] [address] Jan, Bipolar 1 disorder, mixed F3 1.60 [facility] [address] [facility] [id number] [address] [place] [address] Jan, Bipolar 1 disorder, mixed F3 1.60 [facility] [address] 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 [id number] [address] [place] [address] Dec, Other nursing home (current) dr ug therapy Z79.899 [facility] [address] [facility] [id number] [address] [place] [address] Dec, Bipolar 1 disorder, mixed F3 1.60 [facility] [address] [facility] [id number] [address] [place] [address] Dec, Bipolar 1 disorder, mixed F3 1.60 [facility] [address] [facility] [id number] [address] [place] [address] Nov, Bipolar 1 disorder, mixed F3 1.60 [facility] [address] [facility] [id number] [address] [place] [address] Nov, Bipolar 1 disorder, mixed F3 1.60 [facility] [address] [facility] [id number] [address] [place] [address] Nov, Bipolar 1 disorder, mixed F3 1.60 [facility] [address] [facility] [id number] [address] [place] [address] Nov, Allergic rhinitis J30.9 [facility] [address] [facility] [id number] [address] [place] [address] Nov, Allergic rhinitis J30.9 [facility] [address] [facility] [id number] [address] [place] [address] Nov, [facility] [address] [facility] [id number] [address] [place], [place] [id number] Nov, Bipolar 1 disorder, mixed F3 1.60 [facility] [address] [facility] [id number] [address] [place] [address] Nov, Fibromyalgia M79.7 and Aller gic rhinitis J30.9 [facility] [id number] [place] [address] October, Bipolar 1 disorder, mixed F3 1.60 [facility] [id number] [place] [address] October, Acute nasopharyngitis J00 [facility] [id number] [place] [address] October, Bitten or stung by nonvenomo us insect and other nonvenomous arthropods, initial encounter W57.XXXA and Insect bite (nonvenomous) of abdominal wall, initial encounter S30.861A [facility] [id number] [place] [address] October, Insect bite (nonvenomous) of abdominal wall, initial encounter S30.861A ; Bitten or stung by nonvenomous insect and other nonvenomous arthropods, initial encounter W57.XXXA ; Allergic rhinitis J30.9 and Low back pain M54.5 [facility] [id number] [place] [address] October, Bipolar 1 disorder, mixed F3 1.60 [facility] [id number] [place] [address] October, [facility] [id number] [place] [address] October, [facility] [id number] [place] [address] October, Bipolar 1 disorder, mixed F3 1.60 [facility] [id number] [place] [address] Sep, Bipolar 1 disorder, mixed F3 1.60 [facility] [id number] [place] [address] Sep, Other chronic pain G89.29 [place] [address] [facility] [id number] [address] [place] [address] Sep, [facility] [address] [facility] [id number] [address] [place], [place] [address] Sep, Bipolar 1 disorder, mixed F3 1.60 [facility] [id number] [place] [address] Sep, Allergic rhinitis J30.9 and Sciatica of left side M54.32 [facility] [address] [facility] [id number] [address] [place] [address] Sep, Bipolar 1 disorder, mixed F3 1.60 [place] [id number] [place] [address] Sep, Bipolar 1 disorder, mixed F3 1.60 and Generalized anxiety disorder F41.1 [place] [id number] [place] [address] Aug, [facility] [address] [facility] [id number] [address] [place] [address] Aug, Bipolar 1 disorder, mixed F3 1.60 [facility] [id number] [place] [address] Aug, Bipolar 1 disorder, mixed F3 1.60 [facility] [id number] [place] [address] Aug, [facility] [id number] [place] [address] Aug, Generalized anxiety disorder F41.1 [facility] [address] [facility] [id number] [address] [place] [address] Aug, Bipolar 1 disorder, mixed F3 1.60 [facility] [id number] [place] [address] Aug, Plantar wart of right foot B 07.0 [facility] [id number] [place] [address] Aug, Bipolar 1 disorder, mixed F3 1.60 [facility] [address] [facility] [id number] [address] [place] [address] Jul, Bipolar 1 disorder, mixed F3 1.60 [facility] [address] [facility] [id number] [address] [place] [address] Jul, [facility] [address] [facility] [id number] [address] [place] [address] Jul, Bipolar 1 disorder, mixed F3 1.60 [facility] [address] [facility] [id number] [address] [place] [address] 09 Jul, 2017 Generalized anxiety disorder F41.1 [facility] [address] [facility] [id number] [address] [place] [address] 07 Jul, 2017 Bipolar 1 disorder, mixed F3 1.60 [facility] [id number] [place] [address] Jul, Acute left-sided low back pa in with left-sided sciatica M54.42 [facility] [address] [facility] [id number] [address] [place] [address] 05 Jul, 2017 Coccydynia M53.3 [facility] [address] [facility] [id number] [address] [place] [address] Jun, Bipolar 1 disorder, mixed F3 1.60 [facility] [address] [facility] [id number] [address] [place] [address] Jun, Acute nasopharyngitis J00 [facility] [address] [facility] [id number] [address] [place] [address] Jun, Bipolar 1 disorder, mixed F3 1.60 [facility] [address] [facility] [id number] [address] [place] [address] Jun, Fibromyalgia M79.7 [facility] [address] [facility] [id number] [address] [place] [address] Jun, Bipolar 1 disorder, mixed F3 1.60 [facility] [id number] [place] [address] Jun, Fibromyalgia M79.7 and Bipol ar 1 disorder, mixed F31.60 [facility] [id number] [place] [address] May, Bipolar 1 disorder, mixed F3 1.60 ; Generalized anxiety disorder F41.1 and 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 [facility] [address] [id number] [place] [address] May, Bipolar 1 disorder, mixed F3 1.60 [facility] [address] [address] May, Cough R05 and Body aches R52 [facility] [address] [address] May, Bladder spasm N32.89 and Acu te cystitis without hematuria N30.00 [place] [address] [address] May, Bipolar 1 disorder, mixed F3 1.60 [place] [address] [address] Apr, [place] [address] [address] Apr, Major depressive disorder, r ecurrent episode, moderate F33.1 and Encounter for immunization Z23 [facility] [id number] [place] [address] Apr, Bipolar 1 disorder, mixed F3 1.60 [place] [id number] [place] [address] Apr, Bipolar 1 disorder, mixed F3 1.60 [place] [id number] [place] [address] Apr, Bipolar 1 disorder, mixed F3 1.60 [facility] [id number] [place] [address] 13 Apr, 2017 Yeast vaginitis B37.3 [facility] [address] [facility] [id number] [address] [place] [address] 09 Apr, 2017 Bipolar 1 disorder, mixed F3 1.60 [facility] [id number] [place] [address] 07 Apr, 2017 [address] L03[address] for immunization Z23 [facility] [id number] [place] [address] Apr, Bipolar 1 disorder, mixed F3 1.60 [facility] [id number] [place] [address] Mar, Bipolar 1 disorder, mixed F3 1.60 [facility] [address] [address] Mar, Bipolar 1 disorder, mixed F3 1.60 [facility] [id number] [address] [place] [address] Mar, Imbalance R26.89 and Encount er for immunization Z23 [facility] [id number] [place] [address] Mar, Generalized anxiety disorder F41.1 [facility] [id number] [address] [place] [address] Mar, Bipolar 1 disorder, mixed F3 1.60 [facility] [id number] [place] [address] Mar, Generalized anxiety disorder F41.1 [facility] [id number] [place] [address] Mar, Bipolar 1 disorder, mixed F3 1.60 [facility] [id number] [place] [address] Mar, Bipolar 1 disorder, mixed F3 1.60 [place] [address] [facility] [id number] [address] [place] [address] 27 Feb, 2017 Bipolar 1 disorder, mixed F3 1.60 [place] [address] [id number] [place] [address] Feb, Bipolar 1 disorder, mixed F3 1.60 and Generalized anxiety disorder F41.1 [place] [address] [address] [place] [id number] [address] [place] [id number] Feb, Gastritis without bleeding, unspecified chronicity, unspecified gastritis type K29.70 ; Hammer toe of right foot M20.41 and Other viral warts B07.8 [place] [address] [address] [place] [id number] [address] [place] [id number] 20 Feb, 2017 Bipolar 1 disorder, mixed F3 1.60 [place] [address] [address] [place] [id number] [address] [place] [phone] Feb, Bipolar 1 disorder, mixed F3 1.60 [place] [id number] [place] [id number] 05 Feb, 2017 Bipolar 1 disorder, mixed F3 1.60 [place] [address] [address] [place] [id number] [address] [place] [phone] Jan, Encounter for screening mamm ogram for breast cancer Z12.31 ; Other viral warts B07.8 and Allergic rhinitis J30.9 [place] [address] [address] [place] [id number] [address] [place] [id number] Jan, Bipolar 1 disorder, mixed F3 1.60 [place] [address] [address] [place] [id number] [place] [phone] Jan, Bipolar 1 disorder, mixed F3 1.60 [place] [address] [address] [place] [id number] [place] [phone] Jan, [place] [address] [place] [id number] [address] [place] [phone] Jan, Bipolar 1 disorder, mixed F3 1.60 [place] [address] [address] [place] [id number] [address] [place] [id number] Jan, Bipolar 1 disorder, mixed F3 1.60 [place] [address] [address] Jan, Allergic rhinitis J30.9 ; He maturia R31.9 and Colon cancer screening Z12.11 [place] [address] [address] Dec, Bipolar 1 disorder, mixed F3 1.60 [place] [address] [address] Dec, Bipolar 1 disorder, mixed F3 1.60 ; Generalized anxiety disorder F41.1 and 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 [place] [address] [address] Dec, Bipolar 1 disorder, mixed F3 1.60 [place] [address] [address] Dec, Bipolar 1 disorder, mixed F3 1.60 [place] [address] [address] Dec, Bipolar 1 disorder, mixed F3 1.60 [place] [address] [address] Dec, Low back pain M54.5 and Recu rrent urinary tract infection N39.0 [place] [address] [address] [place] [id number] [address] [place] [address] Nov, Bipolar 1 disorder, mixed F3 1.60 [place] [address] [address] Nov, Bipolar 1 disorder, mixed F3 1.60 [place] [address] [address] Nov, Bipolar 1 disorder, mixed F3 1.60 [place] [address] [address] Nov, Bipolar 1 disorder, mixed F3 1.60 [place] [address] [address] Nov, [place] [address] [address] Nov, Anesthesia of skin R20.0 ; F requent UTI N39.0 ; Tobacco abuse Z72.0 and Colon cancer screening Z12.11 [place] [address] [address] Nov, Bipolar 1 disorder, mixed F3 1.60 [place] [address] [place] [address] October, Bipolar 1 disorder, mixed F3 1.60 [place] [address] [address] October, Bipolar 1 disorder, mixed F3 1.60 [place] [address] [address] October, Bipolar 1 disorder, mixed F3 1.60 [place] [address] [address] October, Bipolar 1 disorder, mixed F3 1.60 [place] [address] [address] October, Bipolar 1 disorder, mixed F3 1.60 [place] [address] [address] October, Cervicalgia M54.2 and Bipola r 1 disorder, mixed F31.60 [place] [address] [address] October, Hypertension I10 ; Hyperlipi demia, unspecified hyperlipidemia type E78.5 and Family history of thyroid disease Z83.49 [place] [address] [place] [address] October, [place] [address] [address] October, Hypertension I10 ; Hyperlipi demia, unspecified hyperlipidemia type E78.5 and Family history of thyroid problem Z83.49 [place] [address] [place] [id number] [address] [place] [address] October, Bipolar 1 disorder, mixed F3 1.60 [place] [address] [address] Sep, Bipolar 1 disorder, mixed F3 1.60 [place] [address] [address] Sep, Bipolar 1 disorder, mixed F3 1.60 [place] [address] [address] Sep, Bipolar 1 disorder, mixed F3 1.60 [place] [address] [address] Sep, History of colon polyps Z86. 010 and Hematochezia K92.1 [place] [address] [address] Sep, Major depressive disorder, r ecurrent episode, moderate F33.1 [place] [address] [place] [id number] [address] [place] [address] Sep, Bipolar 1 disorder, mixed F3 1.60 [place] [address] [place] [address] Aug, Hot flashes due to menopause N95.1 [place] [address] [place] [id number] [address] [place] [address] Aug, Bipolar 1 disorder, mixed F3 1.60 [place] [address] [place] [id number] [address] [place] [address] Aug, [place] [address] [address] Aug, Bipolar 1 disorder, mixed F3 1.60 [place] [address] [place] [address] Aug, Bipolar 1 disorder, mixed F3 1.60 [place] [address] [address] Aug, Hot flashes due to menopause N95.1 ; Cervicalgia M54.2 and Ataxia R27.0 [place] [address] [address] Jul, Bipolar 1 disorder, mixed F3 1.60 [place] [address] [place] [address] Jul, Bipolar 1 disorder, mixed F3 1.60 [place] [address] [address] Jul, Bipolar 1 disorder, mixed F3 1.60 [place] [address] [address] Jul, Bipolar 1 disorder, mixed F3 1.60 [place] [address] [address] Jul, Bipolar 1 disorder, mixed F3 1.60 [place] [address] [address] Jul, Cervicalgia M54.2 ; Tremor R 25.1 ; Hearing abnormally acute, unspecified laterality H93.239 ; Alopecia L65.9 ; Encounter for immunization Z23 and Family history of thyroid disease Z83.49 [place] [address] [place] [address] Jul, Bipolar 1 disorder, mixed F3 1.60 [place] [address] [address] Jun, [place] [address] [place] [address] Jun, Hearing disorder, unspecifie d laterality H93.299 [facility] [address] [facility] [id number] [address] [place] [address] Jun, Bipolar 1 disorder, mixed F3 1.60 [facility] [address] [facility] [id number] [address] [place] [address] Jun, Bipolar 1 disorder, mixed F3 1.60 [facility] [address] [facility] [id number] [address] [place] [address] Jun, Allergic rhinitis J30.9 [facility] [address] [facility] [id number] [address] [place] [address] Jun, Bipolar 1 disorder, mixed F3 1.60 [facility] [address] [facility] [id number] [address] [place] [address] Jun, Bipolar 1 disorder, mixed F3 1.60 [facility] [address] [facility] [id number] [address] [place] [address] Jun, Allergic rhinitis J30.9 [facility] [address] [facility] [id number] [address] [place] [address] Jun, Allergic rhinitis J30.9 [facility] [address] [facility] [id number] [address] [place] [address] Jun, Bipolar 1 disorder, mixed F3 1.60 [facility] [address] [facility] [id number] [address] [place] [address] May, Bipolar 1 disorder, mixed F3 1.60 [facility] [address] [facility] [id number] [address] [place] [address] May, Bipolar 1 disorder, mixed F3 1.60 [facility] [address] [facility] [id number] [address] [place] [address] May, [facility] [address] [facility] [id number] [address] [place] [address] May, Bipolar 1 disorder, mixed F3 1.60 [facility] [address] [facility] [id number] [address] [place] [address] May, Bipolar 1 disorder, mixed F3 1.60 [facility] [address] [facility] [id number] [address] [place] [address] May, [facility] [address] [facility] [id number] [address] [place] [address] May, [facility] [address] [facility] [id number] [address] [place] [address] May, [facility] [address] [place] [id number] [place] [address] May, Abdominal pain, unspecified location R10.9 [facility] [address] [place] [id number] [address] [place] [address] May, [facility] [address] [place] [id number] [place] [address] Apr, Hematuria R31.9 ; Ataxia R27 .0 and Hearing loss, unspecified laterality H91.90 [facility] [address] [place] [id number] [address] [place] [address] Apr, Bipolar 1 disorder, mixed F3 1.60 [facility] [address] [facility] [id number] [address] [place] [address] Apr, Acute effusion of both middl e ears H65.193 [facility] [address] [facility] [id number] [address] [place] [address] Apr, Hematuria R31.9 and Pyelonep hritis N12 [facility] [address] [place] [id number] [address] [place] [address] Apr, [facility] [address] [facility] [id number] [address] [place] [address] Mar, Bipolar 1 disorder, mixed F3 1.60 [facility] [address] [place] [id number] [address] [place], [place] [id number] Mar, [place] [address] [place] [id number] [address] [place] [address] Mar, Bipolar 1 disorder, mixed F3 1.60 [place] [address] [facility] [id number] [address] [place] [address] Mar, Bipolar 1 disorder, mixed F3 1.60 [place] [address] [place] [id number] [address] [place] [id number] Mar, Encounter for immunization Z 23 and Gastritis without bleeding, unspecified chronicity, unspecified gastritis type K29.70 [place] [address] [place] [id number] [address] [place] [id number] Mar, Bipolar 1 disorder, mixed F3 1.60 and Grief F43.20 [place] [address] [place] [id number] [address] [place] [address] Mar, Gastritis without bleeding, unspecified chronicity, unspecified gastritis type K29.70 [place] [address] [place] [id number] [address] [place] [address] Mar, Bipolar 1 disorder, mixed F3 1.60 [place] [address] [place] [id number] [address] [place] [address] Mar, Gastritis without bleeding, unspecified chronicity, unspecified gastritis type K29.70 [place] [address] [place] [id number] [address] [place] [address] Mar, [place] [address] [facility] [id number] [address] [place] [address] Feb, Bipolar 1 disorder, mixed F3 1.60 [place] [address] [place] [id number] [address] [place] [address] Feb, Bipolar 1 disorder, mixed F3 1.60 and Grief F43.20 [place] [address] [facility] [id number] [address] [place] [address] Feb, Gastritis without bleeding, unspecified chronicity, unspecified gastritis type K29.70 [facility] [address] [place] [id number] [address] [place] [address] 14 Feb, 2016 Bipolar 1 disorder, mixed F3 1.60 [facility] [address] [place] [id number] [address] [place] [address] Feb, Gastroesophageal reflux dise ase, esophagitis presence not specified K21.9 [facility] [address] [place] [address] Jan, Bipolar 1 disorder, mixed F3 1.60 [facility] [address] Jan, Bipolar 1 disorder, mixed F3 1.60 and Unsteady gait R26.81 [place] [address] [address] Jan, Bipolar 1 disorder, mixed F3 1.60 [facility] [address] [address] Jan, Bipolar 1 disorder, mixed F3 1.60 and 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 [place] [address] [place] [address] Jan, Bipolar 1 disorder, mixed F3 1.60 [facility] [address] [address] Jan, Bipolar 1 disorder, mixed F3 1.60 [facility] [address] Jan, Bipolar 1 disorder, mixed F3 1.60 ; Grief F43.20 and 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 [place] [address] [place] [address] Jan, Bipolar 1 disorder, mixed F3 1.60 [place] [address] [place] [address] Dec, [place] [address] [place] [address] Dec, Bipolar 1 disorder, mixed F3 1.60 ; Vitamin D deficiency, unspecified E55.9 ; H/O allergic rhinitis Z87.09 ; Other chronic pain G89.29 and Dorsalgia, unspecified M54.9 [facility] [address] [place] [address] Dec, [facility] [address] [address] Dec, Bipolar 1 disorder, mixed F3 1.60 [place] [address] [address] Dec, Major depressive disorder, r ecurrent episode, moderate F33.1 [place] [address] [address] Dec, Major depressive disorder, r ecurrent episode, moderate F33.1 [place] [address] [place] [address] Nov, [place] [address] [address] Nov, Bipolar 1 disorder, mixed F3 1.60 [place] [address] [address] Nov, Major depressive disorder, r ecurrent episode, moderate F33.1 [place] [address] [place] [address] Nov, Cervicalgia M54.2 ; Arthralg ia of hip, unspecified laterality M25.559 ; Allergic rhinitis J30.9 and Hormone replacement therapy Z79.890 [facility] [address] [place] [id number] [address] [place] [address] Nov, Other seasonal allergic rhin itis J30.2 [facility] [address] [place] [address] October, Major depressive disorder, r ecurrent episode, moderate F33.1 [place] [address] [id number] [address] [place] [address] October, Major depressive disorder, r ecurrent episode, moderate F33.1 and Arthralgia of hip, unspecified laterality M25.559 [place] [address] [facility] [id number] [address] [place] [address] October, Grief F43.20 ; Hypertension I10 ; Hyperlipidemia, unspecified hyperlipidemia type E78.5 ; Other chronic pain G89.29 and Allergic rhinitis, unspecified allergic rhinitis type J30.9 [place] [address] [facility] [id number] [address] [place] [address] October, Major depressive disorder, r ecurrent episode, moderate F33.1 [place] [address] [facility] [id number] [address] [place] [address] Sep, Major depressive disorder, r ecurrent episode, moderate F33.1 [place] [address] [id number] [address] [place] [address] Sep, [place] [address] [facility] [id number] [address] [place] [address] Sep, Major depressive disorder, r ecurrent episode, moderate F33.1 [place] [address] [facility] [id number] [address] [place] [address] Sep, Grief F43.20 [place] [address] [facility] [id number] [address] [place] [address] Aug, Major depressive disorder, r ecurrent episode, moderate F33.1 [place] [address] [facility] [id number] [address] [place] [address] Aug, Bipolar 1 disorder, mixed F3 1.60 [place] [address] [facility] [id number] [address] [place] [address] Aug, Allergic rhinitis J30.9 ; Ce rvicalgia M54.2 and Low back pain M54.5 [facility] [address] [facility] [id number] [address] [place] [address] Aug, Major depressive disorder, r ecurrent episode, moderate F33.1 [facility] [address] [facility] [id number] [address] [place] [address] Aug, Sinusitis J32.9 and Tobacco 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 [facility] [address] [facility] [id number] [address] [place] [address] Aug, [facility] [address] [place] [id number] [address] [place] [address] Aug, Depressive disorder, not els ewhere classified F32.9 ; Hormone replacement therapy Z79.[address] scan, head R93.0 [facility] [address] [place] [address] Aug, Major depressive disorder, r ecurrent episode, moderate F33.1 [facility] [address] [place] [id number] [address] [place] [address] Jul, Major depressive disorder, r ecurrent episode, moderate F33.1 [facility] [address] [facility] [id number] [address] [place] [address] Jul, Abdominal pain R10.9 and Hyp ertension I10 [facility] [address] [facility] [id number] [address] [place] [address] Jul, [facility] [address] [place] [id number] [address] [place] [address] Jul, Major depressive disorder, r ecurrent episode, moderate F33.1 [facility] [address] [place] [id number] [address] [place] [address] Jul, [facility] [address] [facility] [id number] [address] [place] [address] Jul, [facility] [address] [place] [id number] [address] [place] [address] Jun, [facility] [address] [id number] [address] [place] [address] Jun, Depressive disorder, not els ewhere classified F32.9 [facility] [address] [id number] [address] [place] [address] Jun, [facility] [address] [id number] [address] [place] [address] Jun, [facility] [address] [id number] [address] [place] [address] Jun, Arthralgia of hip, unspecifi ed laterality M25.559 ; Bruising, spontaneous R23.3 and Night sweats R61 [facility] [address] [id number] [address] [place] [address] Jun, [facility] [address] [facility] [id number] [address] [place] [address] Jun, [facility] [address] [id number] [address] [place] [address] May, [facility] [address] [id number] [address] [place] [address] May, Myalgia M79.1 and Screening, lipid Z13.220 [facility] [address] [facility] [id number] [address] [place] [address] Apr, Status post cervical spinal fusion Z98.1 ; Fibromyalgia M79.7 and Unsteady gait R26.81 [facility] [address] [id number] [address] [place] [address] Nov, [facility] [address] [facility] [id number] [address] [place] [address] Nov, [facility] [address] [id number] [address] [place] [address] October, [facility] [address] [facility] [id number] [address] [place] [address] October, [facility] [address] [id number] [address] [place] [address], [place] [address] October, [facility] [address] [id number] [address] [place] [address] October, [facility] [address] [id number] [address] [place] [address] October, [facility] [address] [id number] [address] [place] [address] October, Dysuria 788.1 ; Nausea 787.0 2 and Urinary tract infection 599.0 [facility] [address] [id number] [address] [place] [address], [place] [address] Sep, [facility] [address] [id number] [address] [place] [address] Sep, [facility] [address] [id number] [address] [place] [address] Aug, [facility] [address] [id number] [address] [place] [address] Aug, [facility] [address] [id number] [address] [place] [address] Aug, [facility] [address] [id number] [address] [place] [id number] Aug, [facility] [address] [id number] [address] [place] [id number] Aug, [facility] [address] [id number] [address] [place] [id number] Aug, [facility] [address] [id number] [address] [place] [id number] Aug, [facility] [address] [id number] [address] [place] [id number] Aug, [facility] [address] [id number] [address] [place] [id number] 19 Aug, 2014 [facility] [address] [id number] [address] [place] [address], [place] [id number] 18 Aug, 2014 [facility] [address] [id number] [address] [place] [address], [place] [id number] 18 Aug, 2014 [facility] [address] [id number] [address] [place] [address], [place] [id number] 13 Aug, 2014 [facility] [address] [id number] [address] [place] [address], [place] [id number] 13 Aug, 2014 [facility] [address] [id number] [address] [place] [address], [place] [id number] Aug, [facility] [address] [id number] [address] [place] [address], [place] [id number] Aug, [facility] [address] [id number] [address] [place] [address], [place] [id number] Aug, [facility] [address] [id number] [address] [place] [address], [place] [id number] Aug, [facility] [address] [id number] [address] [place] [address], [place] [id number] 05 Aug, 2014 [facility] [address] [id number] [address] [place] [address], [place] [id number] 05 Aug, 2014 [facility] [address] [id number] [address] [place] [address], [place] [id number] Aug, [facility] [address] [id number] [address] [place] [address], [place] [id number] Aug, [facility] [address] [id number] [address] [place] [address], [place] [id number] Aug, [facility] [address] [id number] [address] [place] [address], [place] [id number] Jul, [facility] [address] [id number] [address] [place] [address], [place] [id number] Jul, [facility] [address] [id number] [address] [place] [address], [place] [id number] Jul, 2014 [facility] [address] [id number] [address] [place] [address], [place] [address] Jul, 2014 [facility] [address] [id number] [address] [place] [address], [place] [address] Jul, 2014 [facility] [address] [id number] [address] [place] [address], [place] [address] Jul, 2014 [facility] [address] [id number] [address] [place] [address], [place] [address] Jul, 2014 [facility] [address] [id number] [address] [place] [address], [place] [address] Jul, 2014 [facility] [address] [id number] [address] [place] [address], [place] [address] Jul, [facility] [address] [id number] [address] [place] [address], [place] [address] Jul, [facility] [address] [id number] [address] [place] [address], [place] [address] Jul, [facility] [address] [id number] [address] [place] [address], [place] [address] Jul, [facility] [address] [id number] [address] [place] [address] Jul, [facility] [address] [id number] [address] [place] [address] Jul, [facility] [address] [id number] [address] [place] [address], [place] [address] Jun, [facility] [address] [id number] [address] [place] [address] Jun, [facility] [address] [id number] [address] [place] [address] Jun, [facility] [address] [id number] [address] [place] [address] Jun, [facility] [address] [id number] [address] [place] [address], [place] [address] Jun, [facility] [address] [id number] [address] [place] [address], [place] [address] Jun, [facility] [address] [id number] [address] [place] [address], [place] [address] May, [facility] [address] [id number] [address] [place] [address], [place] [address] May, [facility] [address] [id number] [address] [place] [address], [place] [address] May, [facility] [address] [id number] [address] [place] [address], [place] [address] May, [facility] [address] [id number] [address] [place] [address], [place] [address] May, [facility] [address] [id number] [address] [place] [address], [place] [address] May, [facility] [address] [id number] [address] [place] [address], [place] [address] Apr, [facility] [address] [id number] [address] [place] [address], [place] [address] Apr, [facility] [address] [id number] [address] [place] [address], [place] [address] Apr, [facility] [address] [id number] [address] [place] [address], [place] [address] Apr, [facility] [address] [id number] [address] [place] [address], [place] [address] Apr, [facility] [address] [id number] [address] [place] [address], [place] [address] Apr, [facility] [address] [id number] [address] [place] [address], [place] [address] Mar, [facility] [address] [id number] [address] [place] [address], [place] [address] Mar, 2013 [facility] [address] [id number] [address] [place] [address], [place] [address] Mar, 2013 [facility] [address] [id number] [address] [place] [address], [place] [address] Mar, 2013 [facility] [address] [id number] [address] [place] [address], [place] [address] Mar, 2013 [facility] [address] [id number] [address] [place] [address], [place] [address] Mar, 2013 [facility] [address] [id number] [address] [place] [address], [place] [address] Mar, 2013 [facility] [address] [id number] [address] [place] [address], [place] [address] Mar, 2013 [facility] [address] [id number] [address] [place] [address], [place] [address] Mar, 2013 [facility] [address] [id number] [address] [place] [address], [place] [address] Mar, [facility] [address] [id number] [address] [place] [address], [place] [address] Mar, 2013 [facility] [address] [id number] [address] [place] [address], [place] [address] Mar, [facility] [address] [id number] [address] [place] [address], [place] [address] 30 Feb, 2013 [facility] [address] [id number] [address] [place] [address], [place] [address] 29 Feb, 2013 [facility] [address] [id number] [address] [place] [address], [place] [address] 29 Feb, 2013 [facility] [address] [id number] [address] [place] [address], [place] [address] 23 Feb, 2013 [facility] [address] [id number] [address] [place] [address], [place] [address] Feb, [facility] [address] [id number] [facility] [place] [address] Feb, [facility] [address] [id number] [address] [place] [address], [place] [address] Feb, [facility] [address] [id number] [address] [place] [address], [place] [address] Jan, [facility] [address] [id number] [address] [place] [address], [place] [address] Jan, [facility] [address] [id number] [address] [place] [address], [place] [address] Jan, [facility] [address] [id number] [address] [place] [address], [place] [address] Dec, [facility] [address] [id number] [address] [place] [address], [place] [address] Dec, [facility] [address] [id number] [address] [place] [address], [place] [address] Dec, [facility] [address] [id number] [address] [place] [address], [place] [address] Dec, [facility] [address] [id number] [address] [place] [address], [place] [address] Sep, [facility] [address] [id number] [address] [place] [address], [place] [address] Sep, [facility] [address] [id number] [address] [place] [address], [place] [address] Sep, [facility] [address] [id number] [address] [place] [address], [place] [address] Sep, [facility] [address] [id number] [address] [place] [address], [place] [address] Sep, [facility] [address] [id number] [address] [place] [address], [place] [address] Sep, [facility] [address] [id number] [address] [place] [address], [place] [address] Sep, [facility] [address] [id number] [address] [place] [address], [place] [address] Sep, [facility] [address] [id number] [address] [place] [address], [place] [address] Aug, [facility] [address] [id number] [address] [place] [address], [place] [address] Aug, [facility] [address] [id number] [address] [place] [address], [place] [address] May, [facility] [address] [id number] [address] [place] [address], [place] [address] May, [facility] [address] [id number] [address] [place] [address], [place] [address] Apr, [facility] [address] [id number] [address] [place] [address], [place] [address] Apr, [facility] [address] [id number] [address] [place] [address], [place] [address] Apr, [facility] [address] [id number] [address] [place] [address], [place] [address] Apr, [facility] [address] [id number] [address] [place] [address], [place] [address] Apr, [facility] [address] [id number] [address] [place] [address], [place] [address] Apr, [facility] [address] [id number] [address] [place] [address], [place] [address] May, [facility] [address] [id number] [address] [place] [address], [place] [address] May, [facility] [address] [id number] [address] [place] [address], [place] [address] May, [facility] [address] [id number] [address] [place] [address], [place] [address] May, [facility] [address] [id number] [address] [place] [address], [place] [address] May, [facility] [address] [id number] [address] [place] [address], [place] [address] May, [facility] [address] [id number] [address] [place] [address], [place] [address] Apr, [facility] [address] [id number] [address] [place] [address], [place] [address] Apr, [facility] [address] [id number] [address] [place] [address], [place] [address] Apr, [facility] [address] [id number] [address] [place] [address], [place] [address] Apr, [facility] [address] [id number] [address] [place] [address], [place] [address] Apr, [facility] [address] [id number] [address] [place] [address], [place] [address] Apr, [facility] [address] [id number] [address] [place] [address], [place] [address] Apr, [facility] [address] [id number] [address] [place] [address], [place] [address] Apr, [facility] [address] [id number] [address] [place] [address], [place] [address] Apr, [facility] [address] [id number] [address] [place] [address], [place] [address] Apr, [facility] [address] [id number] [address] [place] [address], [place] [address] Mar, [facility] [address] [id number] [address] [place] [address], [place] [address] Mar, [facility] [address] [id number] [address] [place] [address], [place] [address] Mar, [facility] [address] [id number] [address] [place] [address], [place] [address] Mar, [facility] [address] [id number] [address] [place] [address], [place] [address] Mar, [facility] [address] [id number] [address] [place] [address], [place] [address] Mar, [facility] [address] [id number] [address] [place] [address], [place] [address] Mar, [facility] [address] [id number] [address] [place] [address], [place] [address] Mar, [facility] [address] [id number] [address] [place] [address], [place] [address] Mar, [facility] [address] [id number] [address] [place] [address], [place] [address] Feb, [facility] [address] [id number] [address] [place] [address], [place] [address] 16 Feb, 2012 [facility] [address] [id number] [address] [place] [address], [place] [address] Feb, [facility] [address] [id number] [address] [place] [address], [place] [address] Jan, [facility] [address] [id number] [address] [place] [address], [place] [address] Jan, [facility] [address] [id number] [address] [place] [address], [place] [address] Jan, [facility] [address] [id number] [address] [place] [address], [place] [address] Jan, [facility] [address] [id number] [address] [place] [address], [place] [address] Jan, [facility] [address] [id number] [address] [place] [address], [place] [address] Jan, [facility] [address] [id number] [address] [place] [address], [place] [address] Jan, [facility] [address] [id number] [address] [place] [address], [place] [address] Jan, [facility] [address] [id number] [address] [place] [address], [place] [address] Jan, [facility] [address] [id number] [address] [place] [address], [place] [address] Jan, [facility] [address] [id number] [address] [place] [address], [place] [address] Dec, [facility] [address] [id number] [address] [place] [address], [place] [address] Dec, [facility] [address] [id number] [address] [place] [address], [place] [address] Dec, [facility] [address] [id number] [address] [place] [address], [place] [address] Dec, [facility] [address] [id number] [address] [place] [address], [place] [address] Nov, [facility] [address] [id number] [address] [place] [address], [place] [address] Nov, [facility] [address] [id number] [address] [place] [address], [place] [address] Nov, [facility] [address] [id number] [address] [place] [address], [place] [address] October, [facility] [address] [id number] [address] [place] [address], [place] [address] October, [facility] [address] [id number] [address] [place] [address], [place] [address] October, [facility] [address] [id number] [address] [place] [address], [place] [address] October, [facility] [address] [id number] [address] [place] [address], [place] [address] October, [facility] [address] [id number] [address] [place] [address], [place] [address] October, [facility] [address] [id number] [address] [place] [address] Aug, [facility] [address] [id number] [address] [place] [address] Mar, [facility] [address] [id number] [address] [place] [address] Nov, [facility] [address] [id number] [address] [place] [address] May, [facility] [address] [id number] [address] [place] [address] May, [facility] [address] [facility] [id number] [address] [place] [address] Apr, [facility] [address] [facility] [id number] [address] [place] [address] Mar, [facility] [address] [facility] [id number] [address] [place] [address] Mar, IMMUNIZATIONS No Known Immunizations SOCIAL HISTORY Never Assessed REASON FOR V[place]IT [place] [place] VITAL SIGNS MEDICATIONS Unknown [...]
--- OUTSIDE RECORDS SUMMARY | 2019-06-19 05:22 | XMS REPORT ---
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 Name Role Phone Migration, Doctor Unavailable Unavailable PROBLEMS Type Condition ICD9-CM Code CXW40-HF Code Onset Dates Condition S tatus SNOMED Code Problem Hormone replacement therapy Z79.890 Ac tive 553762191 Problem Sensorineural hearing loss (SNHL) of both ears H90 .3 Active [address]4424 Problem Ab[address] CT scan, head R93.0 Active 281657502 Problem Arthralgia of hip, unspecified laterality M25.559 Active 71189420 Problem Bruising, spontaneous R23.3 Active 182476236 Problem Hypertension I10 Active 9123168 3 Problem Night sweats R61 Active 7617265 0 Problem Hammer toe of right foot M20.41 Activ e 904440631 Problem Hematuria, unspecified type R31.9 Ac tive 93157218 Problem Bipolar 1 disorder, mixed F31.60 Acti ve 24951279 Problem Gastritis without bleeding, unspecified chronicity, unspecified gastritis type K29.70 Active 811384396 Problem Hearing loss, unspecified laterality H91.90 Active 99851365 Problem Ataxia R27.0 Active 46831147 Problem Hot flashes due to menopause N95.1 A ctive 421993574 Problem Allergic rhinitis J30.9 Active 61 908494 Problem Generalized anxiety disorder F41.1 A ctive 47827645 Problem History of colon polyps Z86.010 Active 192644961 Problem Imbalance R26.89 Active 665199952 Problem Major depressive disorder, recurrent episode, moderate F33.1 Active 155972780 Problem Fibromyalgia M79.7 Active 1206091 7 Problem Slow transit constipation K59.01 Acti ve 91978135 Problem Grief F43.20 Active 43443605 Problem Tobacco use disorder F17.200 Active 075465900 Problem Hyperlipidemia, unspecified hyperlipidemia type E7 8.5 Active 23780253 Problem Other chronic pain G89.29 Active 8 4281225 Problem Bladder spasm N32.89 Active 344521 006 Problem Acute left-sided low back pain with left-sided sciatica M54.42 Active 933239145 Problem Sciatica of left side M54.32 Active 82229565 Problem Plantar wart of right foot B07.0 Act mitchell [id number] ALLERGIES No Information ENCOUNTERS Encounter Location Date Diagnosis [facility] [address] [id number] [address] [place] [address] Sep, [facility] [address] [id number] [address] [place] [address] Sep, [facility] [address] [id number] [address] [place] [phone] Sep, [facility] [address] [id number] [address] [place] [address] Sep, [facility] [address] [id number] [address] [place] [address] Sep, [facility] [address] [id number] [address] [place] [address] Sep, [facility] [address] [id number] [address] [place] [address] Aug, [facility] [address] [id number] [address] [place] [address] Aug, [facility] [address] [id number] [address] [place] [address] Aug, Exercise counseling Z71.82 [facility] [address] [id number] [address] [place] [address] Aug, Bipolar 1 disorder, mixed F3 1.60 [facility] [address] [id number] [address] [place] [address] Aug, Gastritis without bleeding, unspecified chronicity, unspecified gastritis type K29.70 ; Tobacco abuse Z72.0 ; Generalized anxiety disorder F41.1 and Weight gain R63.5 [facility] [address] [id number] [address] [place] [address] Aug, Bipolar 1 disorder, mixed F3 1.60 ; Generalized anxiety disorder F41.1 and Tobacco use disorder F17.200 [facility] [address] [id number] [address] [place] [address] Jul, Bipolar 1 disorder, mixed F3 1.60 [facility] [address] [id number] [address] [place] [address] Jul, [facility] [address] [id number] [address] [place] [address] Jul, Bipolar 1 disorder, mixed F3 1.60 [facility] [address] [id number] [address] [place] [address] Jul, Allergic rhinitis J30.9 ; Ma darion depressive disorder, recurrent episode, moderate F33.1 and Tobacco 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 [facility] [address] [id number] [address] [place] [address] Jun, [facility] [address] [id number] [address] [place] [address] Jun, [facility] [address] [id number] [address] [place] [address] Jun, Bipolar 1 disorder, mixed F3 1.60 [facility] [address] [id number] [address] [place] [address] Jun, Bipolar 1 disorder, mixed F3 1.60 [facility] [address] [id number] [address] [place] [address] Jun, Bipolar 1 disorder, mixed F3 1.60 [facility] [address] [id number] [address] [place] [address] Jun, Generalized anxiety disorder F41.1 ; Tobacco abuse Z72.0 and Major depressive disorder, recurrent episode, moderate F33.1 [facility] [address] [id number] [address] [place] [address] May, Bipolar 1 disorder, mixed F3 1.60 [facility] [address] [id number] [address] [place] [address] May, Bipolar 1 disorder, mixed F3 1.60 and Generalized anxiety disorder F41.1 [facility] [address] [id number] [address] [place] [address] May, Bipolar 1 disorder, mixed F3 1.60 [facility] [address] [id number] [address] [place] [address] May, Allergic rhinitis J30.9 [facility] [address] [id number] [address] [place] [address] May, Bipolar 1 disorder, mixed F3 1.60 [place] [address] [id number] [address] [place] [address] May, [place] [address] [id number] [address] [place] [address] Apr, Allergic rhinitis J30.9 ; Dy sfunction of both eustachian tubes H69.83 ; History of bladder surgery Z98.890 and Cervicalgia M54.2 [place] [address] [id number] [address] [place] [address] Mar, Bipolar 1 disorder, mixed F3 1.60 [place] [address] [id number] [address] [place] [address] Mar, [place] [address] [id number] [address] [place] [address] Mar, Slow transit constipation K5 9.01 ; Encounter for immunization Z23 and Generalized anxiety disorder F41.1 [facility] [address] [id number] [address] [place] [phone] Feb, Bipolar 1 disorder, mixed F3 1.60 [facility] [address] [id number] [address] [place] [address] Feb, Allergic rhinitis J30.9 [facility] [address] [id number] [address] [place] [address] Feb, Bipolar 1 disorder, mixed F3 1.60 [facility] [address] [id number] [address] [place] [address] Feb, Bipolar 1 disorder, mixed F3 1.60 and Generalized anxiety disorder F41.1 [facility] [address] [id number] [address] [place] [phone] 13 Feb, 2018 Bipolar 1 disorder, mixed F3 1.60 [facility] [address] [id number] [address] [place] [address] Feb, Allergic rhinitis J30.9 [facility] [address] [id number] [address] [place] [id number] 05 Feb, 2018 [facility] [address] [id number] [address] [place] [address] Jan, Bipolar 1 disorder, mixed F3 1.60 [facility] [address] [id number] [address] [place] [address] Jan, Low back pain M54.5 ; Hyperl ipidemia, unspecified hyperlipidemia type E78.5 and Bipolar 1 disorder, mixed F31.60 [facility] [address] [id number] [address] [place] [address] Jan, Bipolar 1 disorder, mixed F3 1.60 [facility] [address] [id number] [address] [place] [address] Jan, Bipolar 1 disorder, mixed F3 1.60 [facility] [address] [id number] [address] [place] [address] Jan, Bipolar 1 disorder, mixed F3 1.60 [facility] [address] [id number] [address] [place] [address] Jan, Bipolar 1 disorder, mixed F3 1.60 [facility] [address] [id number] [address] [place] [address] Dec, Bipolar 1 disorder, mixed F3 1.60 ; Generalized anxiety disorder F41.1 and 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 [facility] [address] [id number] [address] [place] [address] Dec, Other senior care (current) dr bin feliz Z79.899 [facility] [address] [id number] [address] [place] [address] Dec, Bipolar 1 disorder, mixed F3 1.60 [facility] [address] [id number] [address] [place] [address] Dec, Bipolar 1 disorder, mixed F3 1.60 [facility] [address] [id number] [address] [place] [address] Nov, Bipolar 1 disorder, mixed F3 1.60 [facility] [address] [id number] [address] [place] [address] Nov, Bipolar 1 disorder, mixed F3 1.60 [facility] [address] [id number] [address] [place] [address] Nov, Bipolar 1 disorder, mixed F3 1.60 [facility] [address] [id number] [address] [place] [address] Nov, Allergic rhinitis J30.9 [facility] [address] [id number] [address] [place] [address] Nov, Allergic rhinitis J30.9 [facility] [address] [id number] [address] [place] [address] Nov, [facility] [address] [id number] [address] [place] [address] Nov, Bipolar 1 disorder, mixed F3 1.60 [facility] [address] [id number] [address] [place] [address] Nov, Fibromyalgia M79.7 and Aller gic rhinitis J30.9 [facility] [address] [id number] [address] [place] [address] October, Bipolar 1 disorder, mixed F3 1.60 [facility] [address] [id number] [address] [place] [phone] October, Acute nasopharyngitis J00 [facility] [address] [id number] [address] [place] [address] October, Bitten or stung by nonvenomo us insect and other nonvenomous arthropods, initial encounter W57.XXXA and Insect bite (nonvenomous) of abdominal wall, initial encounter S30.861A [facility] [address] [id number] [address] [place] [address] October, Insect bite (nonvenomous) of abdominal wall, initial encounter S30.861A ; Bitten or stung by nonvenomous insect and other nonvenomous arthropods, initial encounter W57.XXXA ; Allergic rhinitis J30.9 and Low back pain M54.5 [facility] [address] [id number] [address] [place] [address] October, Bipolar 1 disorder, mixed F3 1.60 [facility] [address] [id number] [address] [place] [address] October, [facility] [address] [id number] [address] [place] [address] October, [facility] [address] [id number] [address] [place] [address] October, Bipolar 1 disorder, mixed F3 1.60 [facility] [address] [id number] [address] [place] [address] Sep, Bipolar 1 disorder, mixed F3 1.60 [facility] [address] [id number] [address] [place] [address] Sep, Other chronic pain G89.29 [facility] [address] [id number] [address] [place] [address] Sep, [facility] [address] [id number] [address] [place] [address] Sep, Bipolar 1 disorder, mixed F3 1.60 [facility] [address] [id number] [address] [place] [address] Sep, Allergic rhinitis J30.9 and Sciatica of left side M54.32 [facility] [address] [id number] [address] [place] [address] Sep, Bipolar 1 disorder, mixed F3 1.60 [facility] [address] [id number] [address] [place] [address] Sep, Bipolar 1 disorder, mixed F3 1.60 and Generalized anxiety disorder F41.1 [facility] [address] [id number] [address] [place] [address] Aug, [facility] [address] [id number] [address] [place] [address] Aug, Bipolar 1 disorder, mixed F3 1.60 [facility] [address] [id number] [address] [place] [address] Aug, Bipolar 1 disorder, mixed F3 1.60 [facility] [address] [id number] [address] [place] [address] Aug, [facility] [address] [id number] [address] [place] [address] Aug, Generalized anxiety disorder F41.1 [facility] [address] [id number] [address] [place] [address] Aug, Bipolar 1 disorder, mixed F3 1.60 [facility] [address] [id number] [address] [place] [address] Aug, Plantar wart of right foot B 07.0 [facility] [address] [id number] [address] [place] [address] Aug, Bipolar 1 disorder, mixed F3 1.60 [facility] [address] [id number] [address] [place] [address] Jul, Bipolar 1 disorder, mixed F3 1.60 [facility] [address] [id number] [address] [place] [address] Jul, [facility] [address] [id number] [address] [place] [id number] 14 Jul, 2017 Bipolar 1 disorder, mixed F3 1.60 [facility] [address] [id number] [address] [place] [address] Jul, Generalized anxiety disorder F41.1 [facility] [address] [id number] [address] [place] [address] Jul, Bipolar 1 disorder, mixed F3 1.60 [place] [id number] [place] [address] Jul, Acute left-sided low back pa in with left-sided sciatica M54.42 [place] [address] [id number] [address] [place] [address] Jul, Coccydynia M53.3 [facility] [address] [id number] [address] [place] [address] Jun, Bipolar 1 disorder, mixed F3 1.60 [facility] [address] [id number] [address] [place] [address] Jun, Acute nasopharyngitis J00 [facility] [address] [id number] [address] [place] [address] Jun, Bipolar 1 disorder, mixed F3 1.60 [facility] [address] [id number] [address] [place] [address] Jun, Fibromyalgia M79.7 [facility] [address] [id number] [address] [place] [address] Jun, Bipolar 1 disorder, mixed F3 1.60 [facility] [address] [id number] [address] [place] [address] Jun, Fibromyalgia M79.7 and Bipol ar 1 disorder, mixed F31.60 [facility] [address] [id number] 27 May, 2017 Bipolar 1 disorder, mixed F3 1.60 ; Generalized anxiety disorder F41.1 and 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 [place] [id number] [address] May, Bipolar 1 disorder, mixed F3 1.60 [facility] [address] [address] 14 May, 2017 Cough R05 and Body aches R52 [facility] [address] [address] 10 May, 2017 Bladder spasm N32.89 and Acu te cystitis without hematuria N30.00 [place] [address] [address] 07 May, 2017 Bipolar 1 disorder, mixed F3 1.60 [place] [address] [address] 30 Apr, 2017 [place] [address] [address] Apr, Major depressive disorder, r ecurrent episode, moderate F33.1 and Encounter for immunization Z23 [place] [address] [address] Apr, Bipolar 1 disorder, mixed F3 1.60 [place] [address] [address] Apr, Bipolar 1 disorder, mixed F3 1.60 [place] [address] [address] 16 Apr, 2017 Bipolar 1 disorder, mixed F3 1.60 [place] [address] [address] 13 Apr, 2017 Yeast vaginitis B37.3 [place] [address] [address] Apr, Bipolar 1 disorder, mixed F3 1.60 [facility] [address] [id number] [address] [place] [address] Apr, Cellulitis L03.[address] for immunization Z23 [facility] [address] [id number] [address] [place] [address] Apr, Bipolar 1 disorder, mixed F3 1.60 [facility] [address] [id number] [address] [place] [address] Mar, Bipolar 1 disorder, mixed F3 1.60 [facility] [address] [address] Mar, Bipolar 1 disorder, mixed F3 1.60 [facility] [address] [address] Mar, Imbalance R26.89 and Encount er for immunization Z23 [facility] [address] [id number] [address] [place] [address] Mar, Generalized anxiety disorder F41.1 [facility] [address] [address] Mar, Bipolar 1 disorder, mixed F3 1.60 [facility] [address] [id number] [address] [place] [address] Mar, Generalized anxiety disorder F41.1 [facility] [address] [id number] [address] [place] [address] Mar, Bipolar 1 disorder, mixed F3 1.60 [facility] [address] [id number] [address] [place] [address] Mar, Bipolar 1 disorder, mixed F3 1.60 [facility] [address] [id number] [address] [place], [place] [id number] Feb, Bipolar 1 disorder, mixed F3 1.60 [facility] [address] [id number] [address] [place] [address] Feb, Bipolar 1 disorder, mixed F3 1.60 and Generalized anxiety disorder F41.1 [facility] [address] [id number] [address] [place] [address] Feb, Gastritis without bleeding, unspecified chronicity, unspecified gastritis type K29.70 ; Hammer toe of right foot M20.41 and Other viral warts B07.8 [facility] [address] [id number] [address] [place] [address] Feb, Bipolar 1 disorder, mixed F3 1.60 [place] [address] [id number] [address] [place] [address] Feb, Bipolar 1 disorder, mixed F3 1.60 [place] [address] [place] [id number] [place] [address] Feb, Bipolar 1 disorder, mixed F3 1.60 [place] [address] [address] Jan, Encounter for screening mamm ogram for breast cancer Z12.31 ; Other viral warts B07.8 and Allergic rhinitis J30.9 [place] [address] [id number] [place] [address] Jan, Bipolar 1 disorder, mixed F3 1.60 [place] [address] [place] [id number] [address] [place] [address] Jan, Bipolar 1 disorder, mixed F3 1.60 [place] [address] [place] [id number] [address] [place] [address] Jan, [facility] [address] [id number] [address] [place] [address] Jan, Bipolar 1 disorder, mixed F3 1.60 [place] [address] [place] [id number] [address] [place] [address] Jan, Bipolar 1 disorder, mixed F3 1.60 [place] [address] [place] [id number] [address] [place] [address] Jan, Allergic rhinitis J30.9 ; He maturia R31.9 and Colon cancer screening Z12.11 [facility] [address] [id number] [address] [place] [id number] Dec, Bipolar 1 disorder, mixed F3 1.60 [facility] [address] [place] [id number] [place] [id number] Dec, Bipolar 1 disorder, mixed F3 1.60 ; Generalized anxiety disorder F41.1 and Other senior care (current) drug therapy Z79.899 [place] [id number] [facility] [id number] [address] [place] [id number] Dec, Bipolar 1 disorder, mixed F3 1.60 [place] [address] [place] [id number] [place] [id number] Dec, Bipolar 1 disorder, mixed F3 1.60 [place] [address] [id number] Dec, Bipolar 1 disorder, mixed F3 1.60 [place] [address] [place] [id number] [place] [id number] Dec, Low back pain M54.5 and Recu rrent urinary tract infection N39.0 [place] [address] [place] [id number] [place] [id number] Nov, Bipolar 1 disorder, mixed F3 1.60 [place] [address] [place] [id number] [place] [id number] Nov, Bipolar 1 disorder, mixed F3 1.60 [place] [id number] [place] [id number] [address] [place] [id number] Nov, Bipolar 1 disorder, mixed F3 1.60 [place] [address] [place] [id number] [place] [id number] Nov, Bipolar 1 disorder, mixed F3 1.60 [facility] [address] [place] [id number] [address] [place] [phone] Nov, [place] [address] [place] [id number] [address] [place] [phone] Nov, Anesthesia of skin R20.0 ; F requent UTI N39.0 ; Tobacco abuse Z72.0 and Colon cancer screening Z12.11 [place] [address] [place] [id number] [address] [place] [id number] Nov, Bipolar 1 disorder, mixed F3 1.60 [place] [address] [id number] October, Bipolar 1 disorder, mixed F3 1.60 [place] [id number] October, Bipolar 1 disorder, mixed F3 1.60 [place] [address] [phone] October, Bipolar 1 disorder, mixed F3 1.60 [place] [address] [address] October, Bipolar 1 disorder, mixed F3 1.60 [place] [address] [address] October, Bipolar 1 disorder, mixed F3 1.60 [place] [address] [address] October, Cervicalgia M54.2 and Bipola r 1 disorder, mixed F31.60 [place] [address] [address] October, Hypertension I10 ; Hyperlipi demia, unspecified hyperlipidemia type E78.5 and Family history of thyroid disease Z83.49 [place] [address] [address] October, [place] [address] [address] October, Hypertension I10 ; Hyperlipi demia, unspecified hyperlipidemia type E78.5 and Family history of thyroid problem Z83.49 [facility] [address] [place] [id number] [address] [place] [address] October, Bipolar 1 disorder, mixed F3 1.60 [facility] [address] [place] [id number] [address] [place], [place] [address] Sep, Bipolar 1 disorder, mixed F3 1.60 [facility] [address] [place] [id number] [address] [place] [address] Sep, Bipolar 1 disorder, mixed F3 1.60 [place] [address] [place] [id number] [address] [place] [address] Sep, Bipolar 1 disorder, mixed F3 1.60 [place] [address] [place] [id number] [place] [address] Sep, History of colon polyps Z86. 010 and Hematochezia K92.1 [place] [address] [place] [id number] [address] [place] [address] Sep, Major depressive disorder, r ecurrent episode, moderate F33.1 [place] [address] [place] [id number] [address] [place] [address] Sep, Bipolar 1 disorder, mixed F3 1.60 [place] [id number] [place] [id number] [address] [place] [address] Aug, Hot flashes due to menopause N95.1 [facility] [address] [place] [id number] [address] [place] [address] Aug, Bipolar 1 disorder, mixed F3 1.60 [facility] [address] [place] [id number] [address] [place] [address] Aug, [place] [address] [place] [id number] [address] [place] [address] Aug, Bipolar 1 disorder, mixed F3 1.60 [facility] [address] [place] [id number] [address] [place] [address] Aug, Bipolar 1 disorder, mixed F3 1.60 [place] [address] [address] Aug, Hot flashes due to menopause N95.1 ; Cervicalgia M54.2 and Ataxia R27.0 [place] [address] [address] Jul, Bipolar 1 disorder, mixed F3 1.60 [place] [address] Jul, Bipolar 1 disorder, mixed F3 1.60 [place] [address] Jul, Bipolar 1 disorder, mixed F3 1.60 [place] [address] Jul, Bipolar 1 disorder, mixed F3 1.60 [place] [address] [address] Jul, Bipolar 1 disorder, mixed F3 1.60 [place] [address] [address] Jul, Cervicalgia M54.2 ; Tremor R 25.1 ; Hearing abnormally acute, unspecified laterality H93.239 ; Alopecia L65.9 ; Encounter for immunization Z23 and Family history of thyroid disease Z83.49 [place] [address] [address] Jul, Bipolar 1 disorder, mixed F3 1.60 [place] [address] [address] Jun, [place] [address] Jun, Hearing disorder, unspecifie d laterality H93.299 [place] [address] [address] Jun, Bipolar 1 disorder, mixed F3 1.60 [facility] [address] [id number] [address] [place] [address] Jun, Bipolar 1 disorder, mixed F3 1.60 [facility] [address] [id number] [address] [place] [address] Jun, Allergic rhinitis J30.9 [facility] [address] [id number] [address] [place] [address] Jun, Bipolar 1 disorder, mixed F3 1.60 [facility] [address] [id number] [address] [place] [address] Jun, Bipolar 1 disorder, mixed F3 1.60 [facility] [address] [id number] [address] [place] [address] Jun, Allergic rhinitis J30.9 [facility] [address] [id number] [address] [place] [address] Jun, Allergic rhinitis J30.9 [facility] [address] [id number] [address] [place] [address] Jun, Bipolar 1 disorder, mixed F3 1.60 [facility] [address] [id number] [address] [place] [address] May, Bipolar 1 disorder, mixed F3 1.60 [facility] [address] [id number] [address] [place] [address] May, Bipolar 1 disorder, mixed F3 1.60 [facility] [address] [id number] [address] [place] [address] May, [facility] [address] [id number] [address] [place] [address] May, Bipolar 1 disorder, mixed F3 1.60 [facility] [address] [id number] [address] [place] [address] May, Bipolar 1 disorder, mixed F3 1.60 [facility] [address] [id number] [address] [place] [address] May, [facility] [address] [id number] [address] [place] [address] May, [facility] [address] [id number] [address] [place] [phone] May, [facility] [address] [id number] [address] [place] [address] May, Abdominal pain, unspecified location R10.9 [facility] [address] [id number] [address] [place] [address] May, [facility] [address] [id number] [address] [place] [address] Apr, Hematuria R31.9 ; Ataxia R27 .0 and Hearing loss, unspecified laterality H91.90 [facility] [address] [id number] [address] [place] [address] Apr, Bipolar 1 disorder, mixed F3 1.60 [facility] [address] [id number] [address] [place] [address] Apr, Acute effusion of both middl e ears H65.193 [facility] [address] [id number] [address] [place] [address] Apr, Hematuria R31.9 and Pyelonep hritis N12 [facility] [address] [id number] [address] [place] [address] Apr, [facility] [address] [id number] [address] [place] [address] Mar, Bipolar 1 disorder, mixed F3 1.60 [facility] [address] [id number] [address] [place] [address] Mar, [facility] [address] [id number] [address] [place] [address] Mar, Bipolar 1 disorder, mixed F3 1.60 [facility] [address] [id number] [address] [place] [address] Mar, Bipolar 1 disorder, mixed F3 1.60 [place] [address] [place] [id number] [address] [place] [id number] Mar, Encounter for immunization Z 23 and Gastritis without bleeding, unspecified chronicity, unspecified gastritis type K29.70 [place] [address] [place] [id number] [address] [place] [address] Mar, Bipolar 1 disorder, mixed F3 1.60 and Grief F43.20 [place] [address] [id number] [address] [place] [address] Mar, Gastritis without bleeding, unspecified chronicity, unspecified gastritis type K29.70 [place] [address] [place] [id number] [address] [place] [address] Mar, Bipolar 1 disorder, mixed F3 1.60 [place] [address] [place] [id number] [address] [place] [address] Mar, Gastritis without bleeding, unspecified chronicity, unspecified gastritis type K29.70 [place] [address] [place] [id number] [address] [place] [address] Mar, [place] [address] [place] [id number] [address] [place] [address] 27 Feb, 2016 Bipolar 1 disorder, mixed F3 1.60 [place] [address] [place] [id number] [address] [place] [address] Feb, Bipolar 1 disorder, mixed F3 1.60 and Grief F43.20 [place] [address] [id number] [address] [place] [address] Feb, Gastritis without bleeding, unspecified chronicity, unspecified gastritis type K29.70 [facility] [address] [id number] [address] [place] [address] 14 Feb, 2016 Bipolar 1 disorder, mixed F3 1.60 [facility] [address] [id number] [address] [place] [address] Feb, Gastroesophageal reflux dise ase, esophagitis presence not specified K21.9 [place] [address] Jan, Bipolar 1 disorder, mixed F3 1.60 [place] [address] Jan, Bipolar 1 disorder, mixed F3 1.60 and Unsteady gait R26.81 [place] [address] Jan, Bipolar 1 disorder, mixed F3 1.60 [place] [address] Jan, Bipolar 1 disorder, mixed F3 1.60 and Other senior care (current) drug therapy Z79.899 [place] [address] [place] [address] Jan, Bipolar 1 disorder, mixed F3 1.60 [place] [address] [address] Jan, Bipolar 1 disorder, mixed F3 1.60 [place] [address] Jan, Bipolar 1 disorder, mixed F3 1.60 ; Grief F43.20 and Other senior care (current) drug therapy Z79.899 [place] [address] [place] [address] Jan, Bipolar 1 disorder, mixed F3 1.60 [place] [address] [place] [id number] Dec, [place] [address] [place] [id number] Dec, Bipolar 1 disorder, mixed F3 1.60 ; Vitamin D deficiency, unspecified E55.9 ; H/O allergic rhinitis Z87.09 ; Other chronic pain G89.29 and Dorsalgia, unspecified M54.9 [facility] [address] [id number] [address] [place] [address] Dec, [facility] [address] [id number] [address] [place] [address] Dec, Bipolar 1 disorder, mixed F3 1.60 [facility] [address] [id number] [address] [place] [address] Dec, Major depressive disorder, r ecurrent episode, moderate F33.1 [place] [address] [id number] [address] [place] [address] Dec, Major depressive disorder, r ecurrent episode, moderate F33.1 [place] [address] [id number] [address] [place] [address] Nov, [place] [address] [id number] [address] [place] [address] Nov, Bipolar 1 disorder, mixed F3 1.60 [place] [id number] [id number] [address] [place] [address] Nov, Major depressive disorder, r ecurrent episode, moderate F33.1 [place] [id number] [id number] [address] [place] [address] Nov, Cervicalgia M54.2 ; Arthralg ia of hip, unspecified laterality M25.559 ; Allergic rhinitis J30.9 and Hormone replacement therapy Z79.890 [facility] [address] [id number] [address] [place] [address] Nov, Other seasonal allergic rhin itis J30.2 [facility] [address] [id number] [address] [place] [address] October, Major depressive disorder, r ecurrent episode, moderate F33.1 [facility] [address] [id number] [address] [place] [address] October, Major depressive disorder, r ecurrent episode, moderate F33.1 and Arthralgia of hip, unspecified laterality M25.559 [facility] [address] [id number] [address] [place] [address] October, Grief F43.20 ; Hypertension I10 ; Hyperlipidemia, unspecified hyperlipidemia type E78.5 ; Other chronic pain G89.29 and Allergic rhinitis, unspecified allergic rhinitis type J30.9 [place] [address] [id number] [address] [place] [address] October, Major depressive disorder, r ecurrent episode, moderate F33.1 [place] [address] [id number] [address] [place] [address] Sep, Major depressive disorder, r ecurrent episode, moderate F33.1 [place] [address] [id number] [address] [place] [address] Sep, [place] [address] [place] [id number] [address] [place] [address] Sep, Major depressive disorder, r ecurrent episode, moderate F33.1 [place] [address] [id number] [address] [place] [address] Sep, Grief F43.20 [place] [address] [place] [id number] [address] [place] [address] Aug, Major depressive disorder, r ecurrent episode, moderate F33.1 [place] [address] [id number] [address] [place] [address] Aug, Bipolar 1 disorder, mixed F3 1.60 [place] [address] [id number] [address] [place] [address] Aug, Allergic rhinitis J30.9 ; Ce rvicalgia M54.2 and Low back pain M54.5 [facility] [address] [id number] [address] [place] [address] Aug, Major depressive disorder, r ecurrent episode, moderate F33.1 [facility] [address] [id number] [address] [place] [address] Aug, Sinusitis J32.9 and Tobacco 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 [facility] [address] [id number] [address] [place] [address] Aug, [facility] [address] [id number] [address] [place] [address] Aug, Depressive disorder, not els ewhere classified F32.9 ; Hormone replacement therapy Z79.[address] scan, head R93.0 [facility] [address] [id number] [address] [place] [address] Aug, Major depressive disorder, r ecurrent episode, moderate F33.1 [facility] [address] [place] [id number] [address] [place] [address] Jul, Major depressive disorder, r ecurrent episode, moderate F33.1 [facility] [address] [place] [id number] [address] [place] [address] Jul, Abdominal pain R10.9 and Hyp ertension I10 [facility] [address] [id number] [address] [place] [id number] 08 Jul, 2015 [facility] [address] [place] [id number] [address] [place] [id number] 05 Jul, 2015 Major depressive disorder, r ecurrent episode, moderate F33.1 [facility] [address] [place] [id number] [address] [place] [address] Jul, [facility] [address] [id number] [address] [place] [address] Jul, [facility] [address] [place] [id number] [address] [place] [address] Jun, [facility] [address] [id number] [address] [place] [address] Jun, Depressive disorder, not els ewhere classified F32.9 [facility] [address] [place] [id number] [address] [place] [address] Jun, [facility] [address] [id number] [address] [place] [address] Jun, [facility] [address] [id number] [address] [place] [address] Jun, Arthralgia of hip, unspecifi ed laterality M25.559 ; Bruising, spontaneous R23.3 and Night sweats R61 [facility] [address] [id number] [address] [place] [address] Jun, [facility] [address] [id number] [address] [place] [address] Jun, [facility] [address] [id number] [address] [place] [address] May, [facility] [address] [place] [id number] [address] [place] [address] May, Myalgia M79.1 and Screening, lipid Z13.220 [facility] [address] [id number] [address] [place] [address] Apr, Status post cervical spinal fusion Z98.1 ; Fibromyalgia M79.7 and Unsteady gait R26.81 [facility] [address] [id number] [address] [place] [address] Nov, [facility] [address] [id number] [address] [place] [address] Nov, [facility] [address] [id number] [address] [place] [address] October, [facility] [address] [id number] [address] [place] [address] October, [facility] [address] [id number] [address] [place] [address] October, [facility] [address] [id number] [address] [place] [address] October, [facility] [address] [id number] [address] [place] [address] October, [facility] [address] [id number] [address] [place] [address] October, Dysuria 788.1 ; Nausea 787.0 2 and Urinary tract infection 599.0 [facility] [address] [id number] [address] [place] [address], [place] [address] Sep, [facility] [address] [id number] [address] [place] [address] Sep, [facility] [address] [id number] [address] [place] [address], [place] [address] Aug, [facility] [address] [id number] [address] [place] [id number] Aug, [facility] [address] [id number] [address] [place] [address], [place] [address] Aug, [facility] [address] [id number] [address] [place] [address] Aug, [facility] [address] [id number] [address] [place] [address], [place] [address] Aug, [facility] [address] [id number] [address] [place] [address] Aug, [facility] [address] [id number] [address] [place] [address], [place] [address] Aug, [facility] [address] [id number] [address] [place] [address] Aug, [facility] [address] [id number] [address] [place] [address] Aug, [facility] [address] [id number] [address] [place] [address] Aug, [facility] [address] [id number] [address] [place] [address] Aug, [facility] [address] [id number] [address] [place] [address], [place] [address] 13 Aug, 2014 [facility] [address] [id number] [address] [place] [address], [place] [address] 13 Aug, 2014 [facility] [address] [id number] [address] [place] [address], [place] [address] Aug, [facility] [address] [id number] [address] [place] [address], [place] [address] Aug, [facility] [address] [id number] [address] [place] [address], [place] [address] Aug, [facility] [address] [id number] [address] [place] [address], [place] [address] Aug, [facility] [address] [id number] [address] [place] [address], [place] [address] Aug, [facility] [address] [id number] [address] [place] [address], [place] [address] 05 Aug, 2014 [facility] [address] [id number] [address] [place] [address], [place] [address] Aug, [facility] [address] [id number] [address] [place] [address], [place] [address] Aug, [facility] [address] [id number] [address] [place] [address], [place] [address] Aug, [facility] [address] [id number] [address] [place] [address], [place] [id number] Jul, [facility] [address] [id number] [address] [place] [address], [place] [address] Jul, [facility] [address] [id number] [address] [place] [address], [place] [id number] Jul, [facility] [address] [id number] [address] [place] [address], [place] [id number] Jul, [facility] [address] [id number] [address] [place] [address], [place] [id number] Jul, 2014 [facility] [address] [id number] [address] [place] [address], [place] [id number] Jul, 2014 [facility] [address] [id number] [address] [place] [address], [place] [id number] Jul, 2014 [facility] [address] [id number] [address] [place] [address], [place] [id number] Jul, 2014 [facility] [address] [id number] [address] [place] [address], [place] [id number] Jul, 2014 [facility] [address] [id number] [address] [place] [address], [place] [id number] Jul, 2014 [facility] [address] [id number] [address] [place] [address], [place] [id number] Jul, 2014 [facility] [address] [id number] [address] [place] [address], [place] [id number] Jul, 2014 [facility] [address] [id number] [address] [place] [address], [place] [id number] Jul, [facility] [address] [id number] [address] [place] [address], [place] [id number] Jul, [facility] [address] [id number] [address] [place] [address], [place] [id number] Jun, [facility] [address] [id number] [address] [place] [address], [place] [id number] Jun, [facility] [address] [id number] [address] [place] [address], [place] [id number] Jun, [facility] [address] [id number] [address] [place] [address], [place] [id number] Jun, [facility] [address] [id number] [address] [place] [address], [place] [id number] Jun, [facility] [address] [id number] [address] [place] [address] [address] Jun, [facility] [address] [id number] [address] [place] [address], [place] [id number] May, [facility] [address] [id number] [address] [place] [address], [place] [id number] May, [facility] [address] [id number] [address] [place] [address], [place] [id number] May, [facility] [address] [id number] [address] [place] [address], [place] [id number] May, [facility] [address] [id number] [address] [place] [address], [place] [id number] May, [facility] [address] [id number] [address] [place] [address], [place] [id number] May, [facility] [address] [id number] [address] [place] [address], [place] [id number] Apr, [facility] [address] [id number] [address] [place] [address], [place] [id number] Apr, [facility] [address] [id number] [address] [place] [address], [place] [id number] Apr, [facility] [address] [id number] [address] [place] [address], [place] [address] Apr, [facility] [address] [id number] [address] [place] [address], [place] [address] Apr, [facility] [address] [id number] [address] [place] [address], [place] [address] Apr, [facility] [address] [id number] [address] [place] [address], [place] [address] Mar, [facility] [address] [id number] [address] [place] [address], [place] [address] Mar, [facility] [address] [id number] [address] [place] [address], [place] [address] Mar, [facility] [address] [id number] [address] [place] [address], [place] [address] 09 Mar, 2013 [facility] [address] [id number] [address] [place] [address], [place] [address] Mar, 2013 [facility] [address] [id number] [address] [place] [address], [place] [address] Mar, 2013 [facility] [address] [id number] [address] [place] [address], [place] [address] Mar, 2013 [facility] [address] [id number] [address] [place] [address], [place] [address] Mar, 2013 [facility] [address] [id number] [address] [place] [address], [place] [address] Mar, 2013 [facility] [address] [id number] [address] [place] [address], [place] [address] Mar, 2013 [facility] [address] [id number] [address] [place] [address], [place] [address] Mar, 2013 [facility] [address] [id number] [address] [place] [address], [place] [address] Mar, 2013 [facility] [address] [id number] [address] [place] [address], [place] [address] 30 Sep, 2013 [facility] [address] [id number] [address] [place] [address], [place] [address] 29 Sep, 2013 [facility] [address] [id number] [address] [place] [address], [place] [address] 29 Sep, 2013 [facility] [address] [id number] [address] [place] [address], [place] [address] 23 Sep, 2013 [facility] [address] [id number] [address] [place] [address], [place] [address] 23 Sep, 2013 [facility] [address] [id number] [address] [place] [address], [place] [address] 08 Sep, 2013 [facility] [address] [id number] [address] [place] [address], [place] [address] Feb, [facility] [address] [id number] [address] [place] [address], [place] [address] Jan, [facility] [address] [id number] [address] [place] [address], [place] [address] Jan, [facility] [address] [id number] [address] [place] [address], [place] [address] Jan, [facility] [address] [id number] [address] [place] [address], [place] [address] Dec, [facility] [address] [id number] [address] [place] [address], [place] [address] Dec, [facility] [address] [id number] [address] [place] [address], [place] [id number] Dec, [facility] [address] [id number] [address] [place] [address], [place] [address] Dec, [facility] [address] [id number] [address] [place] [address], [place] [address] Sep, [facility] [address] [id number] [address] [place] [address], [place] [address] Sep, [facility] [address] [id number] [address] [place] [address], [place] [address] Sep, [facility] [address] [id number] [address] [place] [address], [place] [address] Sep, [facility] [address] [id number] [address] [place] [address], [place] [address] Sep, [facility] [address] [id number] [address] [place] [address], [place] [id number] Sep, [facility] [address] [id number] [address] [place] [address], [place] [address] Sep, [facility] [address] [id number] [address] [place] [address], [place] [id number] Sep, [facility] [address] [id number] [address] [place] [address], [place] [address] 10 Aug, 2013 [facility] [address] [id number] [address] [place] [address], [place] [address] Aug, [facility] [address] [id number] [address] [place] [address], [place] [address] May, [facility] [address] [id number] [address] [place] [address], [place] [address] May, [facility] [address] [id number] [address] [place] [address], [place] [address] Apr, [facility] [address] [id number] [address] [place] [address], [place] [id number] Apr, [facility] [address] [id number] [address] [place] [address], [place] [address] Apr, [facility] [address] [id number] [address] [place] [address], [place] [address] Apr, [facility] [address] [id number] [address] [place] [address], [place] [address] Apr, [facility] [address] [id number] [address] [place] [address], [place] [address] Apr, [facility] [address] [id number] [address] [place] [address], [place] [address] May, [facility] [address] [id number] [address] [place] [address], [place] [address] 18 May, 2012 [facility] [address] [id number] [address] [place] [address], [place] [address] 15 May, 2012 [facility] [address] [id number] [address] [place] [address], [place] [id number] 15 May, 2012 [facility] [address] [id number] [address] [place] [address], [place] [address] 13 May, 2012 [facility] [address] [id number] [address] [place] [address], [place] [address] 13 May, 2012 [facility] [address] [id number] [address] [place] [address], [place] [address] 13 Apr, 2012 [facility] [address] [id number] [address] [place] [address], [place] [id number] 13 Apr, 2012 [facility] [address] [id number] [address] [place] [address], [place] [address] 08 Apr, 2012 [facility] [address] [id number] [address] [place] [address], [place] [address] Apr, [facility] [address] [id number] [address] [place] [address], [place] [address] 08 Apr, 2012 [facility] [address] [id number] [address] [place] [address], [place] [address] Apr, [facility] [address] [id number] [address] [place] [address], [place] [address] Apr, [facility] [address] [id number] [address] [place] [address], [place] [address] Apr, [facility] [address] [id number] [address] [place] [address], [place] [address] Apr, [facility] [address] [id number] [address] [place] [address], [place] [address] Apr, [facility] [address] [id number] [address] [place] [address], [place] [address] Mar, [facility] [address] [id number] [address] [place] [address], [place] [address] Mar, [facility] [address] [id number] [address] [place] [address], [place] [address] Mar, [facility] [address] [id number] [address] [place] [address], [place] [address] Mar, [facility] [address] [id number] [address] [place] [address], [place] [address] Mar, [facility] [address] [id number] [address] [place] [address], [place] [address] Mar, [facility] [address] [id number] [address] [place] [address], [place] [address] Mar, [facility] [address] [id number] [address] [place] [address], [place] [id number] Mar, [facility] [address] [id number] [address] [place] [address], [place] [address] Mar, [facility] [address] [id number] [address] [place] [address], [place] [address] 25 Feb, 2012 [facility] [address] [id number] [address] [place] [address], [place] [id number] 16 Feb, 2012 [facility] [address] [id number] [address] [place] [address], [place] [address] Feb, [facility] [address] [id number] [address] [place] [address], [place] [address] Jan, [facility] [address] [id number] [address] [place] [address], [place] [address] Jan, [facility] [address] [id number] [address] [place] [address], [place] [address] Jan, [facility] [address] [id number] [address] [place] [address], [place] [address] Jan, [facility] [address] [id number] [address] [place] [address], [place] [address] Jan, [facility] [address] [id number] [address] [place] [address], [place] [address] Jan, [facility] [address] [id number] [address] [place] [address], [place] [address] 16 Jan, 2012 [facility] [address] [id number] [address] [place] [address], [place] [address] Jan, [facility] [address] [id number] [address] [place] [address], [place] [address] Jan, [facility] [address] [id number] [address] [place] [address] Jan, [facility] [address] [id number] [address] [place] [address], [place] [address] Dec, [facility] [address] [id number] [address] [place] [address], [place] [address] Dec, [facility] [address] [id number] [address] [place] [address], [place] [address] Dec, [facility] [address] [id number] [address] [place] [address], [place] [address] Dec, [facility] [address] [id number] [address] [place] [address], [place] [address] Nov, [facility] [address] [id number] [address] [place] [address], [place] [address] Nov, [facility] [address] [id number] [address] [place] [address], [place] [address] Nov, [facility] [address] [id number] [address] [place] [address], [place] [address] October, [facility] [address] [id number] [address] [place] [address], [place] [address] October, [facility] [address] [id number] [address] [place] [address], [place] [address] October, [facility] [address] [id number] [address] [place] [address], [place] [address] October, [facility] [address] [id number] [address] [place] [address], [place] [id number] October, [facility] [address] [id number] [address] [place] [address], [place] [address] October, [facility] [address] [id number] [address] [place] [address], [place] [address] Aug, [facility] [address] [id number] [address] [place] [address], [place] [address] Mar, [facility] [address] [id number] [address] [place] [id number] 16 Nov, 2010 [facility] [address] [id number] [address] [place] [id number] May, [facility] [address] [id number] [address] [place] [address] May, [facility] [address] [id number] [address] [place] [id number] Apr, [facility] [address] [id number] [address] [place] [id number] Mar, [facility] [address] [id number] [address] [place] [id number] Mar, IMMUNIZATIONS No Known Immunizations SOCIAL HISTORY Never Assessed REASON FOR VISIT EMR-[facility] PLAN OF CARE VITAL SIGNS MEDICATIONS Unknown [...]
--- OUTSIDE RECORDS SUMMARY | 2019-06-19 05:22 | XMS REPORT ---
Author Author Sydnie Huston Doctor Organization [facility] Address Unknown Phone Unavailable Care Team Providers Care Collar Setter Name Role Phone Migration, Doctor Unavailable Unavailable PROBLEMS Type Condition ICD9-CM Code TND46-ID Code Onset Dates Condition S tatus SNOMED Code Problem Hormone replacement therapy Z79.890 Ac tive 473612120 Problem Sensorineural hearing loss (SNHL) of both ears H90 .3 Active 248726183 Problem Ab[address] CT scan, head R93.0 Active 720780266 Problem Arthralgia of hip, unspecified laterality M25.559 Active 97966733 Problem Bruising, spontaneous R23.3 Active 564354936 Problem Hypertension I10 Active 1059307 3 Problem Night sweats R61 Active 3232308 0 Problem Hammer toe of right foot M20.41 Activ e 742857757 Problem Hematuria, unspecified type R31.9 Ac tive 10922615 Problem Bipolar 1 disorder, mixed F31.60 Acti ve 84435231 Problem Gastritis without bleeding, unspecified chronicity, unspecified gastritis type K29.70 Active 198826087 Problem Hearing loss, unspecified laterality H91.90 Active 53108405 Problem Ataxia R27.0 Active 43014223 Problem Hot flashes due to menopause N95.1 A ctive 586755069 Problem Allergic rhinitis J30.9 Active 61 903377 Problem Generalized anxiety disorder F41.1 A ctive 53712086 Problem History of colon polyps Z86.010 Active 498767479 Problem Imbalance R26.89 Active 951162539 Problem Major depressive disorder, recurrent episode, moderate F33.1 Active 687230678 Problem Fibromyalgia M79.7 Active 7310228 7 Problem Slow transit constipation K59.01 Acti ve 53654548 Problem Grief F43.20 Active 72532173 Problem Tobacco use disorder F17.200 Active 462781133 Problem Hyperlipidemia, unspecified hyperlipidemia type E7 8.5 Active 20859104 Problem Other chronic pain G89.29 Active 8 8901930 Problem Bladder spasm N32.89 Active 918461 006 Problem Acute left-sided low back pain with left-sided sciatica M54.42 Active 441062517 Problem Sciatica of left side M54.32 Active 94168373 Problem Plantar wart of right foot B07.0 Act mitchell [id number] ALLERGIES No Information ENCOUNTERS Encounter Location Date Diagnosis [facility] [address] [id number] [address] [place] [phone] Sep, [facility] [address] [id number] [address] [place] [phone] Sep, [facility] [address] [id number] [address] [place] [phone] Sep, [facility] [address] [id number] [address] [place] [phone] Sep, [facility] [address] [facility] [id number] [address] [place] [phone] Sep, [facility] [address] [facility] [id number] [address] [place] [phone] Sep, [facility] [address] [facility] [id number] [address] [place] [phone] Sep, Exercise counseling Z71.82 [facility] [address] [facility] [id number] [address] [place] [phone] Aug, Exercise counseling Z71.82 [facility] [address] [facility] [id number] [address] [place] [phone] Aug, Bipolar 1 disorder, mixed F3 1.60 [facility] [address] [id number] [address] [place] [phone] Aug, Exercise counseling Z71.82 [facility] [address] [facility] [id number] [address] [place] [phone] Aug, Bipolar 1 disorder, mixed F3 1.60 [facility] [address] [facility] [id number] [address] [place] [phone] Aug, Gastritis without bleeding, unspecified chronicity, unspecified gastritis type K29.70 ; Tobacco abuse Z72.0 ; Generalized anxiety disorder F41.1 and Weight gain R63.5 [facility] [address] [facility] [id number] [address] [place] [phone] Aug, Bipolar 1 disorder, mixed F3 1.60 ; Generalized anxiety disorder F41.1 and Tobacco use disorder F17.200 [facility] [address] [facility] [id number] [address] [place] [phone] Jul, Bipolar 1 disorder, mixed F3 1.60 [facility] [address] [facility] [id number] [address] [place] [phone] Jul, [place] [address] [facility] [id number] [address] [place] [id number] Jul, Bipolar 1 disorder, mixed F3 1.60 [place] [address] [place] [id number] [address] [place] [phone] Jul, Allergic rhinitis J30.9 ; Ma darion depressive disorder, recurrent episode, moderate F33.1 and Tobacco 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 [facility] [address] [facility] [id number] [address] [place] [phone] Jun, [facility] [address] [facility] [id number] [address] [place] [phone] Jun, [facility] [address] [facility] [id number] [address] [place] [phone] Jun, Bipolar 1 disorder, mixed F3 1.60 [facility] [address] [facility] [id number] [address] [place] [phone] Jun, Bipolar 1 disorder, mixed F3 1.60 [facility] [address] [facility] [id number] [address] [place] [phone] Jun, Bipolar 1 disorder, mixed F3 1.60 [facility] [address] [facility] [id number] [address] [place] [phone] Jun, Generalized anxiety disorder F41.1 ; Tobacco abuse Z72.0 and Major depressive disorder, recurrent episode, moderate F33.1 [facility] [address] [facility] [id number] [address] [place] [phone] May, Bipolar 1 disorder, mixed F3 1.60 [place] [address] [place] [id number] [address] [place] [phone] May, Bipolar 1 disorder, mixed F3 1.60 and Generalized anxiety disorder F41.1 [place] [address] [place] [id number] [place] [phone] May, Bipolar 1 disorder, mixed F3 1.60 [place] [address] [place] [id number] [place] [phone] May, Allergic rhinitis J30.9 [place] [address] [place] [id number] [address] [place] [phone] May, Bipolar 1 disorder, mixed F3 1.60 [place] [address] [address] May, [place] [address] [place] [id number] [place] [phone] Apr, Allergic rhinitis J30.9 ; Dy sfunction of both eustachian tubes H69.83 ; History of bladder surgery Z98.890 and Cervicalgia M54.2 [place] [address] [place] [id number] [address] [place] [phone] Mar, Bipolar 1 disorder, mixed F3 1.60 [place] [address] [place] [id number] [address] [place] [phone] Mar, [place] [address] [place] [id number] [place] [phone] Mar, Slow transit constipation K5 9.01 ; Encounter for immunization Z23 and Generalized anxiety disorder F41.1 [place] [address] [facility] [id number] [address] [place] [phone] Feb, Bipolar 1 disorder, mixed F3 1.60 [place] [address] [place] [id number] [address] [place] [phone] 26 Feb, 2018 Allergic rhinitis J30.9 [facility] [address] [id number] [address] [place] [id number] 24 Feb, 2018 Bipolar 1 disorder, mixed F3 1.60 [facility] [address] [facility] [id number] [address] [place] [phone] 20 Feb, 2018 Bipolar 1 disorder, mixed F3 1.60 and Generalized anxiety disorder F41.1 [facility] [address] [facility] [id number] [address] [place] [phone] 13 Feb, 2018 Bipolar 1 disorder, mixed F3 1.60 [facility] [address] [facility] [id number] [address] [place] [phone] 11 Feb, 2018 Allergic rhinitis J30.9 [facility] [address] [facility] [id number] [address] [place] [id number] 05 Feb, 2018 [facility] [address] [facility] [id number] [address] [place] [phone] Jan, Bipolar 1 disorder, mixed F3 1.60 [facility] [address] [facility] [id number] [address] [place] [phone] Jan, Low back pain M54.5 ; Hyperl ipidemia, unspecified hyperlipidemia type E78.5 and Bipolar 1 disorder, mixed F31.60 [facility] [address] [facility] [id number] [address] [place] [id number] Jan, Bipolar 1 disorder, mixed F3 1.60 [facility] [address] [facility] [id number] [address] [place] [phone] Jan, Bipolar 1 disorder, mixed F3 1.60 [facility] [address] [facility] [id number] [address] [place] [phone] Jan, Bipolar 1 disorder, mixed F3 1.60 [facility] [address] [facility] [id number] [address] [place] [id number] Jan, Bipolar 1 disorder, mixed F3 1.60 [facility] [address] [facility] [id number] [address] [place] [phone] Dec, Bipolar 1 disorder, mixed F3 1.60 ; Generalized anxiety disorder F41.1 and 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 (current) drug therapy Z79.899 [facility] [address] [facility] [id number] [address] [place], [place] [id number] Dec, 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 (current) dr ug therapy Z79.899 [facility] [address] [facility] [id number] [address] [place] [phone] Dec, Bipolar 1 disorder, mixed F3 1.60 [facility] [address] [facility] [id number] [address] [place], [place] [address] Dec, Bipolar 1 disorder, mixed F3 1.60 [facility] [address] [facility] [id number] [address] [place] [id number] Nov, Bipolar 1 disorder, mixed F3 1.60 [facility] [address] [facility] [id number] [address] [place] [id number] Nov, Bipolar 1 disorder, mixed F3 1.60 [facility] [address] [facility] [id number] [address] [place] [id number] Nov, Bipolar 1 disorder, mixed F3 1.60 [facility] [address] [facility] [id number] [address] [place] [id number] Nov, Allergic rhinitis J30.9 [facility] [address] [facility] [id number] [address] [place] [phone] Nov, Allergic rhinitis J30.9 [facility] [address] [facility] [id number] [address] [place] [phone] Nov, [facility] [address] [facility] [id number] [address] [place] [id number] Nov, Bipolar 1 disorder, mixed F3 1.60 [facility] [address] [facility] [id number] [address] [place] [id number] Nov, Fibromyalgia M79.7 and Aller gic rhinitis J30.9 [facility] [address] [facility] [id number] [address] [place] [phone] October, Bipolar 1 disorder, mixed F3 1.60 [facility] [address] [facility] [id number] [address] [place] [phone] October, Acute nasopharyngitis J00 [facility] [address] [facility] [id number] [address] [place] [phone] October, Bitten or stung by nonvenomo us insect and other nonvenomous arthropods, initial encounter W57.XXXA and Insect bite (nonvenomous) of abdominal wall, initial encounter S30.861A [facility] [address] [facility] [id number] [address] [place] [phone] October, Insect bite (nonvenomous) of abdominal wall, initial encounter S30.861A ; Bitten or stung by nonvenomous insect and other nonvenomous arthropods, initial encounter W57.XXXA ; Allergic rhinitis J30.9 and Low back pain M54.5 [facility] [address] [facility] [id number] [address] [place] [phone] October, Bipolar 1 disorder, mixed F3 1.60 [facility] [address] [place] [id number] [address] [place] [phone] October, [facility] [address] [facility] [id number] [address] [place] [phone] October, [facility] [address] [facility] [id number] [address] [place] [phone] October, Bipolar 1 disorder, mixed F3 1.60 [facility] [address] [facility] [id number] [address] [place] [id number] Sep, Bipolar 1 disorder, mixed F3 1.60 [facility] [address] [facility] [id number] [address] [place] [phone] Sep, Other chronic pain G89.29 [facility] [address] [facility] [id number] [address] [place] [phone] Sep, [facility] [address] [id number] [address] [place] [phone] Sep, Bipolar 1 disorder, mixed F3 1.60 [facility] [address] [facility] [id number] [address] [place] [id number] Sep, Allergic rhinitis J30.9 and Sciatica of left side M54.32 [facility] [address] [facility] [id number] [address] [place] [id number] Sep, Bipolar 1 disorder, mixed F3 1.60 [facility] [address] [id number] [address] [place] [id number] Sep, Bipolar 1 disorder, mixed F3 1.60 and Generalized anxiety disorder F41.1 [facility] [address] [facility] [id number] [address] [place] [phone] Aug, [facility] [address] [facility] [id number] [address] [place] [phone] Aug, Bipolar 1 disorder, mixed F3 1.60 [facility] [address] [id number] [address] [place] [phone] Aug, Bipolar 1 disorder, mixed F3 1.60 [facility] [address] [facility] [id number] [address] [place] [phone] Aug, [facility] [address] [facility] [id number] [address] [place] [phone] Aug, Generalized anxiety disorder F41.1 [facility] [address] [id number] [address] [place] [phone] Aug, Bipolar 1 disorder, mixed F3 1.60 [facility] [address] [facility] [id number] [address] [place] [phone] Aug, Plantar wart of right foot B 07.0 [facility] [address] [facility] [id number] [address] [place] [id number] Aug, Bipolar 1 disorder, mixed F3 1.60 [facility] [address] [facility] [id number] [address] [place] [id number] Jul, Bipolar 1 disorder, mixed F3 1.60 [facility] [address] [facility] [id number] [address] [place] [phone] Jul, [facility] [address] [facility] [id number] [address] [place] [phone] 14 Jul, 2017 Bipolar 1 disorder, mixed F3 1.60 [facility] [address] [facility] [id number] [address] [place] [phone] 09 Jul, 2017 Generalized anxiety disorder F41.1 [facility] [address] [facility] [id number] [address] [place] [phone] 07 Jul, 2017 Bipolar 1 disorder, mixed F3 1.60 [facility] [address] [facility] [id number] [address] [place] [phone] 07 Jul, 2017 Acute left-sided low back pa in with left-sided sciatica M54.42 [facility] [address] [facility] [id number] [address] [place] [phone] 05 Jul, 2017 Coccydynia M53.3 [facility] [address] [facility] [id number] [address] [place] [phone] Jun, Bipolar 1 disorder, mixed F3 1.60 [facility] [address] [facility] [id number] [address] [place] [phone] Jun, Acute nasopharyngitis J00 [facility] [address] [facility] [id number] [address] [place] [phone] Jun, Bipolar 1 disorder, mixed F3 1.60 [facility] [address] [facility] [id number] [address] [place] [phone] Jun, Fibromyalgia M79.7 [facility] [address] [facility] [id number] [address] [place] [id number] Jun, Bipolar 1 disorder, mixed F3 1.60 [facility] [address] [id number] 08 Jun, 2017 Fibromyalgia M79.7 and Bipol ar 1 disorder, mixed F31.60 [place] [address] [address] May, Bipolar 1 disorder, mixed F3 1.60 ; Generalized anxiety disorder F41.1 and Other 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 frame tender (current) drug therapy Z79.899 [place] [address] [address] May, Bipolar 1 disorder, mixed F3 1.60 [facility] [place] [id number] [address] 14 May, 2017 Cough R05 and Body aches R52 [facility] [place] [address] [address] 10 May, 2017 Bladder spasm N32.89 and Acu te cystitis without hematuria N30.00 [place] [address] [address] 07 May, 2017 Bipolar 1 disorder, mixed F3 1.60 [place] [address] [address] Apr, [place] [address] [address] Apr, Major depressive disorder, r ecurrent episode, moderate F33.1 and Encounter for immunization Z23 [place] [address] [address] Apr, Bipolar 1 disorder, mixed F3 1.60 [place] [address] [address] Apr, Bipolar 1 disorder, mixed F3 1.60 [place] [address] [address] 16 Apr, 2017 Bipolar 1 disorder, mixed F3 1.60 [place] [address] [address] 13 Apr, 2017 Yeast vaginitis B37.3 [facility] [address] [address] 09 Apr, 2017 Bipolar 1 disorder, mixed F3 1.60 [facility] [address] [place] [id number] [place] [phone] 07 Apr, [address] for immunization Z23 [facility] [address] [address] Apr, Bipolar 1 disorder, mixed F3 1.60 [facility] [address] [place] [id number] Mar, Bipolar 1 disorder, mixed F3 1.60 [place] [address] [address] Mar, Bipolar 1 disorder, mixed F3 1.60 [facility] [address] [address] Mar, Imbalance R26.89 and Encount er for immunization Z23 [facility] [address] [address] Mar, Generalized anxiety disorder F41.1 [place] [address] [address] Mar, Bipolar 1 disorder, mixed F3 1.60 [facility] [address] [address] Mar, Generalized anxiety disorder F41.1 [facility] [address] [address] Mar, Bipolar 1 disorder, mixed F3 1.60 [facility] [address] [address] Mar, Bipolar 1 disorder, mixed F3 1.60 [facility] [address] [address] 27 Feb, 2017 Bipolar 1 disorder, mixed F3 1.60 [place] [address] [facility] [id number] [address] [place] [phone] 25 Feb, 2017 Bipolar 1 disorder, mixed F3 1.60 and Generalized anxiety disorder F41.1 [place] [address] [place] [id number] [address] [place] [id number] 21 Feb, 2017 Gastritis without bleeding, unspecified chronicity, unspecified gastritis type K29.70 ; Hammer toe of right foot M20.41 and Other viral warts B07.8 [place] [address] [facility] [id number] [address] [place] [id number] 20 Feb, 2017 Bipolar 1 disorder, mixed F3 1.60 [place] [address] [facility] [id number] [address] [place] [id number] 13 Feb, 2017 Bipolar 1 disorder, mixed F3 1.60 [place] [address] [place] [id number] [address] [place] [phone] 05 Feb, 2017 Bipolar 1 disorder, mixed F3 1.60 [place] [address] [facility] [id number] [address] [place] [phone] 31 Jan, 2017 Encounter for screening mamm ogram for breast cancer Z12.31 ; Other viral warts B07.8 and Allergic rhinitis J30.9 [place] [address] [facility] [id number] [address] [place] [phone] Jan, Bipolar 1 disorder, mixed F3 1.60 [place] [address] [facility] [id number] [address] [place] [id number] Jan, Bipolar 1 disorder, mixed F3 1.60 [place] [address] [facility] [id number] [address] [place] [id number] 14 Jan, 2017 [place] [address] [facility] [id number] [address] [place] [id number] Jan, Bipolar 1 disorder, mixed F3 1.60 [place] [address] [place] [id number] [address] [place] [phone] Jan, Bipolar 1 disorder, mixed F3 1.60 [place] [address] [place] [id number] [address] [place] [id number] Jan, Allergic rhinitis J30.9 ; He maturia R31.9 and Colon cancer screening Z12.11 [place] [address] [address] [place] [id number] [address] [place] [id number] Dec, Bipolar 1 disorder, mixed F3 1.60 [place] [address] [address] [place] [id number] [address] [place] [id number] Dec, Bipolar 1 disorder, mixed F3 1.60 ; Generalized anxiety disorder F41.1 and 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 (current) drug therapy Z79.899 [place] [address] [address] [place] [id number] [address] [place] [id number] Dec, Bipolar 1 disorder, mixed F3 1.60 [place] [address] [address] [place] [id number] [address] [place] [id number] Dec, Bipolar 1 disorder, mixed F3 1.60 [place] [address] [address] [place] [id number] [address] [place] [id number] Dec, Bipolar 1 disorder, mixed F3 1.60 [place] [address] [address] [place] [id number] [address] [place] [id number] Dec, Low back pain M54.5 and Recu rrent urinary tract infection N39.0 [place] [address] [address] [place] [id number] [address] [place] [id number] Nov, Bipolar 1 disorder, mixed F3 1.60 [place] [address] [address] [place] [id number] [address] [place] [id number] Nov, Bipolar 1 disorder, mixed F3 1.60 [place] [address] [address] [place] [id number] [address] [place] [id number] Nov, Bipolar 1 disorder, mixed F3 1.60 [place] [address] [address] [place] [id number] [address] [place] [id number] Nov, Bipolar 1 disorder, mixed F3 1.60 [place] [address] [address] [place] [id number] Nov, [place] [address] [address] [place] [id number] Nov, Anesthesia of skin R20.0 ; F requent UTI N39.0 ; Tobacco abuse Z72.0 and Colon cancer screening Z12.11 [place] [address] [address] [place] [id number] Nov, Bipolar 1 disorder, mixed F3 1.60 [place] [address] October, Bipolar 1 disorder, mixed F3 1.60 [place] [address] [place] [id number] October, Bipolar 1 disorder, mixed F3 1.60 [place] [address] [address] October, Bipolar 1 disorder, mixed F3 1.60 [place] [address] [place] [id number] October, Bipolar 1 disorder, mixed F3 1.60 [place] [address] [address] October, Bipolar 1 disorder, mixed F3 1.60 [place] [address] [address] October, Cervicalgia M54.2 and Bipola r 1 disorder, mixed F31.60 [place] [address] [place] [id number] October, Hypertension I10 ; Hyperlipi demia, unspecified hyperlipidemia type E78.5 and Family history of thyroid disease Z83.49 [place] [address] [address] October, [place] [address] [address] October, Hypertension I10 ; Hyperlipi demia, unspecified hyperlipidemia type E78.5 and Family history of thyroid problem Z83.49 [place] [address] [place] [id number] [address] [place] [address] October, Bipolar 1 disorder, mixed F3 1.60 [place] [address] [address] Sep, Bipolar 1 disorder, mixed F3 1.60 [place] [address] [address] Sep, Bipolar 1 disorder, mixed F3 1.60 [place] [address] [address] Sep, Bipolar 1 disorder, mixed F3 1.60 [place] [address] [address] Sep, History of colon polyps Z86. 010 and Hematochezia K92.1 [place] [address] [address] Sep, Major depressive disorder, r ecurrent episode, moderate F33.1 [place] [address] [address] Sep, Bipolar 1 disorder, mixed F3 1.60 [place] [address] [place] [id number] [address] [place] [address] Aug, Hot flashes due to menopause N95.1 [place] [address] [address] Aug, Bipolar 1 disorder, mixed F3 1.60 [place] [address] [place] [id number] [address] [place] [address] Aug, [place] [address] [address] Aug, Bipolar 1 disorder, mixed F3 1.60 [facility] [address] [address] Aug, Bipolar 1 disorder, mixed F3 1.60 [facility] [address] [address] Aug, Hot flashes due to menopause N95.1 ; Cervicalgia M54.2 and Ataxia R27.0 [place] [address] [address] Jul, Bipolar 1 disorder, mixed F3 1.60 [place] [address] [place] [address] Jul, Bipolar 1 disorder, mixed F3 1.60 [place] [address] [address] Jul, Bipolar 1 disorder, mixed F3 1.60 [place] [address] [address] Jul, Bipolar 1 disorder, mixed F3 1.60 [place] [address] [address] Jul, Bipolar 1 disorder, mixed F3 1.60 [place] [address] [address] Jul, Cervicalgia M54.2 ; Tremor R 25.1 ; Hearing abnormally acute, unspecified laterality H93.239 ; Alopecia L65.9 ; Encounter for immunization Z23 and Family history of thyroid disease Z83.49 [place] [address] [address] Jul, Bipolar 1 disorder, mixed F3 1.60 [place] [address] [address] Jun, [place] [address] [address] Jun, Hearing disorder, unspecifie d laterality H93.299 [facility] [address] [id number] [address] [place] [address] Jun, Bipolar 1 disorder, mixed F3 1.60 [facility] [address] [id number] [address] [place] [address] Jun, Bipolar 1 disorder, mixed F3 1.60 [facility] [address] [facility] [id number] [address] [place] [address] Jun, Allergic rhinitis J30.9 [facility] [address] [id number] [address] [place] [address] Jun, Bipolar 1 disorder, mixed F3 1.60 [facility] [address] [id number] [address] [place] [address] Jun, Bipolar 1 disorder, mixed F3 1.60 [facility] [address] [facility] [id number] [address] [place] [address] Jun, Allergic rhinitis J30.9 [facility] [address] [id number] [address] [place] [address] Jun, Allergic rhinitis J30.9 [facility] [address] [facility] [id number] [address] [place] [address] Jun, Bipolar 1 disorder, mixed F3 1.60 [facility] [address] [facility] [id number] [address] [place] [address] May, Bipolar 1 disorder, mixed F3 1.60 [facility] [address] [id number] [address] [place] [address] May, Bipolar 1 disorder, mixed F3 1.60 [facility] [address] [facility] [id number] [address] [place] [address] May, [facility] [address] [facility] [id number] [address] [place] [address] May, Bipolar 1 disorder, mixed F3 1.60 [facility] [address] [facility] [id number] [address] [place] [address] May, Bipolar 1 disorder, mixed F3 1.60 [facility] [address] [facility] [id number] [place] [address] May, [facility] [address] [facility] [id number] [address] [place] [address] May, [facility] [address] [place] [id number] [place] [address] May, [facility] [address] [place] [id number] [address] [place] [address] May, Abdominal pain, unspecified location R10.9 [facility] [address] [place] [id number] [address] [place] [address] May, [facility] [address] [address] Apr, Hematuria R31.9 ; Ataxia R27 .0 and Hearing loss, unspecified laterality H91.90 [facility] [address] [place] [id number] [address] [place] [address] Apr, Bipolar 1 disorder, mixed F3 1.60 [facility] [address] [place] [id number] [address] [place] [address] Apr, Acute effusion of both middl e ears H65.193 [facility] [address] [place] [id number] [address] [place] [address] Apr, Hematuria R31.9 and Pyelonep hritis N12 [facility] [address] [facility] [id number] [address] [place] [address] Apr, [facility] [address] [place] [id number] [place] [address] Mar, Bipolar 1 disorder, mixed F3 1.60 [facility] [address] [place] [id number] [address] [place] [address] Mar, [place] [address] [place] [id number] [address] [place] [address] Mar, Bipolar 1 disorder, mixed F3 1.60 [place] [address] [address] [place] [id number] [address] [place], [place] [address] Mar, Bipolar 1 disorder, mixed F3 1.60 [place] [address] [place] [id number] [address] [place] [address] Mar, Encounter for immunization Z 23 and Gastritis without bleeding, unspecified chronicity, unspecified gastritis type K29.70 [place] [address] [place] [id number] [address] [place] [address] Mar, Bipolar 1 disorder, mixed F3 1.60 and Grief F43.20 [place] [address] [place] [id number] [address] [place] [address] Mar, Gastritis without bleeding, unspecified chronicity, unspecified gastritis type K29.70 [place] [address] [place] [address] Mar, Bipolar 1 disorder, mixed F3 1.60 [place] [address] [place] [id number] [address] [place], [place] [address] Mar, Gastritis without bleeding, unspecified chronicity, unspecified gastritis type K29.70 [place] [address] [place] [id number] [address] [place] [address] Mar, [place] [address] [place] [id number] [address] [place] [address] Feb, Bipolar 1 disorder, mixed F3 1.60 [place] [address] [place] [id number] [address] [place] [address] Feb, Bipolar 1 disorder, mixed F3 1.60 and Grief F43.20 [place] [address] [place] [id number] [address] [place] [address] Feb, Gastritis without bleeding, unspecified chronicity, unspecified gastritis type K29.70 [place] [address] [place] [id number] [address] [place] [address] Feb, Bipolar 1 disorder, mixed F3 1.60 [facility] [address] [facility] [id number] [address] [place] [address] Feb, Gastroesophageal reflux dise ase, esophagitis presence not specified K21.9 [facility] [address] [facility] [id number] [address] [place] [address] Jan, Bipolar 1 disorder, mixed F3 1.60 [facility] [address] [facility] [id number] [address] [place] [address] Jan, Bipolar 1 disorder, mixed F3 1.60 and Unsteady gait R26.81 [facility] [address] [facility] [id number] [address] [place] [address] Jan, Bipolar 1 disorder, mixed F3 1.60 [facility] [address] [place] [id number] [address] [place] [address] Jan, Bipolar 1 disorder, mixed F3 1.60 and 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 (current) drug therapy Z79.899 [facility] [address] [place] [id number] [address] [place] [address] Jan, Bipolar 1 disorder, mixed F3 1.60 [facility] [address] [place] [id number] [address] [place] [address] Jan, Bipolar 1 disorder, mixed F3 1.60 [facility] [address] [place] [id number] [address] [place] [address] Jan, Bipolar 1 disorder, mixed F3 1.60 ; Grief F43.20 and Other 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 frame tender (current) drug therapy Z79.899 [facility] [address] [place] [id number] [address] [place] [address] Jan, Bipolar 1 disorder, mixed F3 1.60 [facility] [address] [place] [id number] [address] [place] [address] Dec, [facility] [address] [place] [id number] [address] [place] [address] Dec, Bipolar 1 disorder, mixed F3 1.60 ; Vitamin D deficiency, unspecified E55.9 ; H/O allergic rhinitis Z87.09 ; Other chronic pain G89.29 and Dorsalgia, unspecified M54.9 [facility] [address] [facility] [id number] [address] [place] [address] Dec, [facility] [address] [place] [id number] [address] [place] [address] Dec, Bipolar 1 disorder, mixed F3 1.60 [place] [address] [facility] [id number] [address] [place] [address] Dec, Major depressive disorder, r ecurrent episode, moderate F33.1 [place] [address] [place] [id number] [address] [place] [address] Dec, Major depressive disorder, r ecurrent episode, moderate F33.1 [place] [address] [place] [id number] [address] [place] [address] Nov, [place] [address] [place] [id number] [address] [place] [address] Nov, Bipolar 1 disorder, mixed F3 1.60 [place] [address] [place] [id number] [address] [place] [address] Nov, Major depressive disorder, r ecurrent episode, moderate F33.1 [place] [address] [place] [id number] [address] [place] [address] Nov, Cervicalgia M54.2 ; Arthralg ia of hip, unspecified laterality M25.559 ; Allergic rhinitis J30.9 and Hormone replacement therapy Z79.890 [facility] [address] [facility] [id number] [address] [place] [address] Nov, Other seasonal allergic rhin itis J30.2 [facility] [address] [facility] [id number] [address] [place] [address] October, Major depressive disorder, r ecurrent episode, moderate F33.1 [place] [address] [id number] [address] [place] [address] October, Major depressive disorder, r ecurrent episode, moderate F33.1 and Arthralgia of hip, unspecified laterality M25.559 [place] [address] [facility] [id number] [address] [place] [address] October, Grief F43.20 ; Hypertension I10 ; Hyperlipidemia, unspecified hyperlipidemia type E78.5 ; Other chronic pain G89.29 and Allergic rhinitis, unspecified allergic rhinitis type J30.9 [place] [address] [facility] [id number] [address] [place] [address] October, Major depressive disorder, r ecurrent episode, moderate F33.1 [place] [address] [facility] [id number] [address] [place] [address] Sep, Major depressive disorder, r ecurrent episode, moderate F33.1 [place] [address] [facility] [id number] [address] [place] [address] Sep, [place] [address] [facility] [id number] [address] [place] [address] Sep, Major depressive disorder, r ecurrent episode, moderate F33.1 [place] [address] [facility] [id number] [address] [place] [address] Sep, Grief F43.20 [place] [address] [facility] [id number] [address] [place] [address] Aug, Major depressive disorder, r ecurrent episode, moderate F33.1 [place] [address] [facility] [id number] [address] [place] [address] Aug, Bipolar 1 disorder, mixed F3 1.60 [place] [address] [facility] [id number] [address] [place] [address] Aug, Allergic rhinitis J30.9 ; Ce rvicalgia M54.2 and Low back pain M54.5 [place] [address] [place] [id number] [address] [place] [address] Aug, Major depressive disorder, r ecurrent episode, moderate F33.1 [facility] [address] [facility] [id number] [address] [place] [address] Aug, Sinusitis J32.9 and Tobacco 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 [facility] [address] [place] [id number] [address] [place] [address] Aug, [facility] [address] [address] Aug, Depressive disorder, not els ewhere classified F32.9 ; Hormone replacement therapy Z79.[address] scan, head R93.0 [facility] [address] [place] [id number] [address] [place] [address] Aug, Major depressive disorder, r ecurrent episode, moderate F33.1 [facility] [address] [place] [address] Jul, Major depressive disorder, r ecurrent episode, moderate F33.1 [facility] [address] [place] [id number] [address] [place] [address] Jul, Abdominal pain R10.9 and Hyp ertension I10 [facility] [address] [place] [id number] [address] [place] [address] Jul, [facility] [address] [place] [id number] [address] [place] [address] Jul, Major depressive disorder, r ecurrent episode, moderate F33.1 [facility] [address] [place] [id number] [address] [place] [address] Jul, [facility] [address] [place] [id number] [address] [place] [address] Jul, [facility] [address] [place] [id number] [address] [place] [address] Jun, [facility] [address] [place] [id number] [address] [place] [address] Jun, Depressive disorder, not els ewhere classified F32.9 [facility] [address] [id number] [address] [place] [address] Jun, [facility] [address] [id number] [address] [place] [address] Jun, [facility] [address] [id number] [address] [place] [address] Jun, Arthralgia of hip, unspecifi ed laterality M25.559 ; Bruising, spontaneous R23.3 and Night sweats R61 [facility] [address] [id number] [address] [place] [address] Jun, [facility] [address] [place] [id number] [address] [place] [address] Jun, [facility] [address] [facility] [id number] [address] [place] [address] May, [facility] [address] [id number] [address] [place] [address] May, Myalgia M79.1 and Screening, lipid Z13.220 [facility] [address] [facility] [id number] [address] [place] [address] Apr, Status post cervical spinal fusion Z98.1 ; Fibromyalgia M79.7 and Unsteady gait R26.81 [facility] [address] [id number] [address] [place] [address] Nov, [facility] [address] [id number] [address] [place] [address] Nov, [facility] [address] [facility] [id number] [address] [place] [address] October, [facility] [address] [facility] [id number] [address] [place] [address] October, [facility] [address] [id number] [address] [place] [address] October, [facility] [address] [id number] [address] [place] [address] October, [facility] [address] [id number] [address] [place] [address] October, [facility] [address] [id number] [address] [place] [address] October, Dysuria 788.1 ; Nausea 787.0 2 and Urinary tract infection 599.0 [facility] [address] [id number] [address] [place] [address] Sep, [facility] [address] [id number] [address] [place] [address] Sep, [facility] [address] [id number] [address] [place] [phone] Aug, [facility] [address] [id number] [address] [place] [address] Aug, [facility] [address] [id number] [address] [place] [id number] Aug, [facility] [address] [id number] [address] [place] [address] Aug, [facility] [address] [id number] [address] [place] [address] Aug, [facility] [address] [id number] [address] [place] [address] Aug, [facility] [address] [id number] [address] [place] [address] Aug, [facility] [address] [id number] [address] [place] [address] Aug, [facility] [address] [id number] [address] [place] [id number] Aug, [facility] [address] [id number] [address] [place] [address], [place] [address] 18 Aug, 2014 [facility] [address] [id number] [address] [place] [address], [place] [address] 18 Aug, 2014 [facility] [address] [id number] [address] [place] [address], [place] [address] 13 Aug, 2014 [facility] [address] [id number] [address] [place] [address], [place] [address] 13 Aug, 2014 [facility] [address] [id number] [address] [place] [address], [place] [address] 11 Aug, 2014 [facility] [address] [id number] [address] [place] [address], [place] [address] 11 Aug, 2014 [facility] [address] [id number] [address] [place] [address], [place] [address] 06 Aug, 2014 [facility] [address] [id number] [address] [place] [address], [place] [address] 06 Aug, 2014 [facility] [address] [id number] [address] [place] [address], [place] [address] 05 Aug, 2014 [facility] [address] [id number] [address] [place] [address], [place] [address] 05 Aug, 2014 [facility] [address] [id number] [address] [place] [address], [place] [address] 04 Aug, 2014 [facility] [address] [id number] [address] [place] [address], [place] [address] Aug, [facility] [address] [id number] [address] [place] [address], [place] [address] Aug, [facility] [address] [id number] [address] [place] [address], [place] [address] Jul, [facility] [address] [id number] [address] [place] [address], [place] [address] Jul, [facility] [address] [id number] [address] [place] [address], [place] [address] Jul, [facility] [address] [id number] [address] [place] [address], [place] [address] Jul, 2014 [facility] [address] [id number] [address] [place] [address], [place] [address] Jul, 2014 [facility] [address] [id number] [address] [place] [address], [place] [address] Jul, 2014 [facility] [address] [id number] [address] [place] [address], [place] [address] Jul, 2014 [facility] [address] [id number] [address] [place] [address], [place] [address] Jul, 2014 [facility] [address] [id number] [address] [place] [address], [place] [address] Jul, 2014 [facility] [address] [id number] [address] [place] [address], [place] [address] Jul, 2014 [facility] [address] [id number] [address] [place] [address], [place] [address] Jul, [facility] [address] [id number] [address] [place] [address], [place] [address] Jul, [facility] [address] [id number] [address] [place] [address], [place] [address] Jul, [facility] [address] [id number] [address] [place] [address], [place] [address] Jul, [facility] [address] [id number] [address] [place] [address] Jun, [facility] [address] [id number] [address] [place] [id number] Jun, [facility] [address] [id number] [address] [place] [id number] Jun, [facility] [address] [id number] [address] [place] [address] Jun, [facility] [address] [id number] [address] [place] [address], [place] [address] Jun, [facility] [address] [id number] [place] [address], [place] [address] Jun, [facility] [address] [id number] [address] [place] [address], [place] [address] May, [facility] [address] [id number] [address] [place] [address], [place] [address] May, [facility] [address] [id number] [address] [place] [address], [place] [address] May, [facility] [address] [id number] [address] [place] [address], [place] [address] May, [facility] [address] [id number] [address] [place] [address], [place] [address] May, [facility] [address] [id number] [address] [place] [address], [place] [address] May, [facility] [address] [id number] [address] [place] [address], [place] [address] Apr, [facility] [address] [id number] [address] [place] [address], [place] [address] Apr, [facility] [address] [id number] [address] [place] [address], [place] [address] Apr, [facility] [address] [id number] [address] [place] [address], [place] [address] Apr, [facility] [address] [id number] [address] [place] [address], [place] [address] Apr, [facility] [address] [id number] [address] [place] [address], [place] [address] Apr, [facility] [address] [id number] [address] [place] [address], [place] [address] Mar, [facility] [address] [id number] [address] [place] [address], [place] [address] Mar, [facility] [address] [id number] [address] [place] [address], [place] [address] Mar, 2013 [facility] [address] [id number] [address] [place] [address], [place] [address] Mar, [facility] [address] [id number] [address] [place] [address], [place] [address] Mar, 2013 [facility] [address] [id number] [address] [place] [address], [place] [address] Mar, 2013 [facility] [address] [id number] [address] [place] [address], [place] [address] Mar, [facility] [address] [id number] [address] [place] [address], [place] [address] Mar, 2013 [facility] [address] [id number] [address] [place] [address], [place] [address] Mar, 2013 [facility] [address] [id number] [address] [place] [address] Mar, [facility] [address] [id number] [address] [place] [address], [place] [address] Mar, [facility] [address] [id number] [address] [place] [address] Mar, [facility] [address] [id number] [address] [place] [address] 30 Feb, 2013 [facility] [address] [id number] [address] [place] [address] 29 Sep, 2013 [facility] [address] [id number] [address] [place] [address], [place] [address] 29 Feb, 2013 [facility] [address] [id number] [address] [place] [address], [place] [address] 23 Feb, 2013 [facility] [address] [id number] [address] [place] [address], [place] [address] Feb, 2013 [facility] [address] [id number] [facility] [address] Feb, [facility] [address] [id number] [address] [place] [address], [place] [address] Feb, [facility] [address] [id number] [address] [place] [address], [place] [address] Jan, [facility] [address] [id number] [address] [place] [address], [place] [address] Jan, [facility] [address] [id number] [address] [place] [address], [place] [address] Jan, [facility] [address] [id number] [address] [place] [address], [place] [address] Dec, [facility] [address] [id number] [address] [place] [address], [place] [address] Dec, [facility] [address] [id number] [address] [place] [address], [place] [address] Dec, [facility] [address] [id number] [address] [place] [address], [place] [address] Dec, [facility] [address] [id number] [address] [place] [address], [place] [address] Sep, [facility] [address] [id number] [address] [place] [address], [place] [address] Sep, [facility] [address] [id number] [address] [place] [address], [place] [address] Sep, [facility] [address] [id number] [address] [place] [address], [place] [address] Sep, [facility] [address] [id number] [address] [place] [address], [place] [address] Sep, [facility] [address] [id number] [address] [place] [address], [place] [address] Sep, [facility] [address] [id number] [address] [place] [address], [place] [address] Sep, [facility] [address] [id number] [address] [place] [address], [place] [address] Sep, [facility] [address] [id number] [address] [place] [address], [place] [address] Aug, [facility] [address] [id number] [address] [place] [address], [place] [address] Aug, [facility] [address] [id number] [address] [place] [address], [place] [address] May, [facility] [address] [id number] [address] [place] [address], [place] [address] May, [facility] [address] [id number] [address] [place] [address], [place] [address] Apr, [facility] [address] [id number] [address] [place] [address], [place] [address] Apr, [facility] [address] [id number] [address] [place] [address], [place] [address] Apr, [facility] [address] [id number] [address] [place] [address], [place] [address] Apr, [facility] [address] [id number] [address] [place] [address], [place] [address] Apr, [facility] [address] [id number] [address] [place] [address], [place] [address] Apr, [facility] [address] [id number] [address] [place] [address], [place] [address] May, [facility] [address] [id number] [address] [place] [address], [place] [address] May, [facility] [address] [id number] [address] [place] [address], [place] [address] May, [facility] [address] [id number] [address] [place] [address], [place] [address] May, [facility] [address] [id number] [address] [place] [address] May, [facility] [address] [id number] [address] [place] [address], [place] [address] May, [facility] [address] [id number] [address] [place] [address] Apr, [facility] [address] [id number] [address] [place] [address], [place] [address] Apr, [facility] [address] [id number] [address] [place] [address] Apr, [facility] [address] [id number] [address] [place] [address], [place] [address] Apr, [facility] [address] [id number] [address] [place] [address], [place] [address] Apr, [facility] [address] [id number] [address] [place] [address] Apr, [facility] [address] [id number] [address] [place] [address], [place] [address] Apr, [facility] [address] [id number] [address] [place] [address] Apr, [facility] [address] [id number] [address] [place] [address] Apr, [facility] [address] [id number] [address] [place] [address] Apr, [facility] [address] [id number] [address] [place] [address] Mar, [facility] [address] [id number] [address] [place] [address], [place] [address] Mar, [facility] [address] [id number] [address] [place] [address], [place] [address] Mar, [facility] [address] [id number] [address] [place] [address], [place] [address] Mar, [facility] [address] [id number] [address] [place] [address], [place] [address] Mar, [facility] [address] [id number] [address] [place] [address], [place] [address] Mar, [facility] [address] [id number] [address] [place] [address], [place] [address] Mar, [facility] [address] [id number] [address] [place] [address], [place] [address] Mar, [facility] [address] [id number] [address] [place] [address], [place] [address] Mar, [facility] [address] [id number] [address] [place] [address], [place] [address] 25 Feb, 2012 [facility] [address] [id number] [address] [place] [address], [place] [address] 16 Feb, 2012 [facility] [address] [id number] [address] [place] [address], [place] [address] Feb, [facility] [address] [id number] [address] [place] [address], [place] [address] Jan, [facility] [address] [id number] [address] [place] [address], [place] [address] Jan, [facility] [address] [id number] [address] [place] [address], [place] [address] Jan, [facility] [address] [id number] [address] [place] [address], [place] [address] Jan, [facility] [address] [id number] [address] [place] [address], [place] [address] Jan, [facility] [address] [id number] [address] [place] [address], [place] [address] Jan, [facility] [address] [id number] [address] [place] [address], [place] [address] 16 Jan, 2012 [facility] [address] [id number] [address] [place] [address], [place] [address] Jan, [facility] [address] [id number] [address] [place] [address], [place] [address] Jan, [facility] [address] [id number] [address] [place] [address], [place] [address] Jan, [facility] [address] [id number] [address] [place] [address], [place] [address] Dec, [facility] [address] [id number] [address] [place] [address], [place] [address] Dec, [facility] [address] [id number] [address] [place] [address], [place] [address] Dec, [facility] [address] [id number] [address] [place] [address], [place] [address] Dec, [facility] [address] [id number] [address] [place] [address], [place] [address] Nov, [facility] [address] [id number] [address] [place] [address], [place] [address] Nov, [facility] [address] [id number] [address] [place] [address], [place] [address] Nov, [facility] [address] [id number] [address] [place] [address], [place] [address] October, [facility] [address] [id number] [address] [place] [address], [place] [address] October, [facility] [address] [id number] [address] [place] [address], [place] [address] October, [facility] [address] [id number] [address] [place] [address], [place] [address] October, [facility] [address] [id number] [address] [place] [address], [place] [address] October, [facility] [address] [id number] [address] [place] [address], [place] [address] October, [facility] [address] [id number] [address] [place] [address] 23 Aug, 2011 [facility] [address] [id number] [address] [place] [id number] 10 Mar, 2011 [facility] [address] [id number] [address] [place] [address] 16 Nov, 2010 [facility] [address] [id number] [address] [place] [address] May, [facility] [address] [id number] [address] [place] [address] May, [facility] [address] [id number] [address] [place] [address] Apr, [facility] [address] [facility] [id number] [address] [place] [address] Mar, [facility] [address] [facility] [id number] [address] [place] [address] Mar, IMMUNIZATIONS No Known Immunizations SOCIAL HISTORY Never Assessed REASON FOR VISIT EMR[place] [place] OF CARE VITAL SIGNS MEDICATIONS Unknown [...]
--- OUTSIDE RECORDS SUMMARY | 2019-06-19 05:23 | XMS REPORT ---
Author Author Sydnie Huston Doctor Organization [facility] Address Unknown Phone Unavailable Care Team Providers Care Bander [employer] Machine Name Role Phone Migration, Doctor Unavailable Unavailable PROBLEMS Type Condition ICD9-CM Code [id number] Code Onset Dates Condition S tatus SNOMED Code Problem Hormone replacement therapy Z79.890 Ac tive 709097007 Problem Sensorineural hearing loss (SNHL) of both ears H90 .3 Active 445926682 Problem Abnormal CT scan, head R93.0 Active 909555177 Problem Arthralgia of hip, unspecified laterality M25.559 Active 19634193 Problem Bruising, spontaneous R23.3 Active 174941023 Problem Hypertension I10 Active 3036101 3 Problem Night sweats R61 Active 7497527 0 Problem Hammer toe of right foot M20.41 Activ e 484985867 Problem Hematuria, unspecified type R31.9 Ac tive 72355953 Problem Bipolar 1 disorder, mixed F31.60 Acti ve 06224750 Problem Gastritis without bleeding, unspecified chronicity, unspecified gastritis type K29.70 Active 172474462 Problem Hearing loss, unspecified laterality H91.90 Active 41703038 Problem Ataxia R27.0 Active 98086364 Problem Hot flashes due to menopause N95.1 A ctive 624411721 Problem Allergic rhinitis J30.9 Active 61 895687 Problem Generalized anxiety disorder F41.1 A ctive 73506621 Problem History of colon polyps Z86.010 Active 965060420 Problem Imbalance R26.89 Active 585728880 Problem Major depressive disorder, recurrent episode, moderate F33.1 Active 969351002 Problem Fibromyalgia M79.7 Active 1046250 7 Problem Slow transit constipation K59.01 Acti ve 41018691 Problem Grief F43.20 Active 75088127 Problem Tobacco use disorder F17.200 Active 785903918 Problem Hyperlipidemia, unspecified hyperlipidemia type E7 8.5 Active 18006121 Problem Other chronic pain G89.29 Active 8 1703044 Problem Bladder spasm N32.89 Active 509969 006 Problem Acute left-sided low back pain with left-sided sciatica M54.42 Active 453342789 Problem Sciatica of left side M54.32 Active 43570734 Problem Plantar wart of right foot B07.0 Act mitchell [id number] ALLERGIES No Information ENCOUNTERS Encounter Location Date Diagnosis [facility] [address] [id number] [address] [place] [phone] Sep, [facility] [address] [id number] [address] [place] [id number] Sep, [facility] [address] [id number] [address] [place] [phone] Sep, [facility] [address] [id number] [address] [place] [id number] Sep, [facility] [address] [place] [place] [id number] [address] [place] [phone] Sep, [facility] [address] [facility] [id number] [address] [place] [phone] Sep, [facility] [address] [facility] [id number] [address] [place] [phone] Aug, [facility] [address] [place] [id number] [address] [place] [phone] Aug, [facility] [address] [id number] [address] [place] [id number] Aug, Exercise counseling Z71.82 [facility] [address] [place] [id number] [address] [place] [phone] Aug, Bipolar 1 disorder, mixed F3 1.60 [facility] [address] [facility] [id number] [address] [place] [id number] Aug, Gastritis without bleeding, unspecified chronicity, unspecified gastritis type K29.70 ; Tobacco abuse Z72.0 ; Generalized anxiety disorder F41.1 and Weight gain R63.5 [facility] [address] [place] [id number] [address] [place] [phone] Aug, Bipolar 1 disorder, mixed F3 1.60 ; Generalized anxiety disorder F41.1 and Tobacco use disorder F17.200 [facility] [address] [facility] [id number] [address] [place] [id number] Jul, Bipolar 1 disorder, mixed F3 1.60 [facility] [address] [facility] [id number] [address] [place] [phone] Jul, [facility] [address] [facility] [id number] [address] [place] [phone] Jul, Bipolar 1 disorder, mixed F3 1.60 [facility] [address] [facility] [id number] [address] [place] [phone] Jul, Allergic rhinitis J30.9 ; Ma darion depressive disorder, recurrent episode, moderate F33.1 and Tobacco 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 [facility] [address] [place] [id number] [address] [place] [phone] Jun, [facility] [address] [facility] [id number] [address] [place] [phone] Jun, [facility] [address] [facility] [id number] [address] [place] [phone] Jun, Bipolar 1 disorder, mixed F3 1.60 [facility] [address] [facility] [id number] [address] [place] [id number] Jun, Bipolar 1 disorder, mixed F3 1.60 [facility] [address] [facility] [id number] [address] [place] [phone] Jun, Bipolar 1 disorder, mixed F3 1.60 [facility] [address] [facility] [id number] [address] [place] [phone] Jun, Generalized anxiety disorder F41.1 ; Tobacco abuse Z72.0 and Major depressive disorder, recurrent episode, moderate F33.1 [facility] [address] [facility] [id number] [address] [place] [phone] May, Bipolar 1 disorder, mixed F3 1.60 [facility] [address] [place] [id number] [address] [place] [phone] May, Bipolar 1 disorder, mixed F3 1.60 and Generalized anxiety disorder F41.1 [facility] [address] [facility] [id number] [address] [place] [phone] May, Bipolar 1 disorder, mixed F3 1.60 [facility] [address] [facility] [id number] [address] [place] [phone] May, Allergic rhinitis J30.9 [facility] [address] [facility] [id number] [address] [place] [phone] May, Bipolar 1 disorder, mixed F3 1.60 [place] [address] [place] [id number] [address] [place] [phone] May, [place] [address] [place] [id number] [address] [place] [phone] Apr, Allergic rhinitis J30.9 ; Dy sfunction of both eustachian tubes H69.83 ; History of bladder surgery Z98.890 and Cervicalgia M54.2 [place] [address] [place] [id number] [address] [place] [id number] Mar, Bipolar 1 disorder, mixed F3 1.60 [place] [address] [place] [id number] [address] [place] [phone] Mar, [place] [address] [place] [id number] [address] [place] [phone] Mar, Slow transit constipation K5 9.01 ; Encounter for immunization Z23 and Generalized anxiety disorder F41.1 [facility] [address] [facility] [id number] [address] [place] [phone] Feb, Bipolar 1 disorder, mixed F3 1.60 [facility] [address] [facility] [id number] [address] [place] [id number] Feb, Allergic rhinitis J30.9 [facility] [address] [facility] [id number] [address] [place] [phone] Feb, Bipolar 1 disorder, mixed F3 1.60 [facility] [address] [facility] [id number] [address] [place] [phone] Feb, Bipolar 1 disorder, mixed F3 1.60 and Generalized anxiety disorder F41.1 [facility] [address] [facility] [id number] [address] [place] [phone] 13 Feb, 2018 Bipolar 1 disorder, mixed F3 1.60 [facility] [address] [facility] [id number] [address] [place] [phone] Feb, Allergic rhinitis J30.9 [facility] [address] [facility] [id number] [address] [place] [phone] 05 Feb, 2018 [facility] [address] [facility] [id number] [address] [place] [phone] Jan, Bipolar 1 disorder, mixed F3 1.60 [facility] [address] [place] [place] [id number] [address] [place] [phone] Jan, Low back pain M54.5 ; Hyperl ipidemia, unspecified hyperlipidemia type E78.5 and Bipolar 1 disorder, mixed F31.60 [facility] [address] [facility] [id number] [address] [place] [phone] Jan, Bipolar 1 disorder, mixed F3 1.60 [facility] [address] [place] [id number] [address] [place] [id number] Jan, Bipolar 1 disorder, mixed F3 1.60 [facility] [address] [place] [id number] [address] [place] [phone] Jan, Bipolar 1 disorder, mixed F3 1.60 [facility] [address] [facility] [id number] [address] [place] [phone] Jan, Bipolar 1 disorder, mixed F3 1.60 [facility] [address] [facility] [id number] [address] [place] [phone] Dec, Bipolar 1 disorder, mixed F3 1.60 ; Generalized anxiety disorder F41.1 and Other roasterman (current) drug therapy Z79.899 [facility] [address] [facility] [id number] [address] [place] [id number] Dec, 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 (current) dr bin feliz Z79.899 [facility] [address] [facility] [id number] [address] [place] [phone] Dec, Bipolar 1 disorder, mixed F3 1.60 [facility] [address] [facility] [id number] [address] [place] [phone] Dec, Bipolar 1 disorder, mixed F3 1.60 [facility] [address] [facility] [id number] [address] [place] [phone] Nov, Bipolar 1 disorder, mixed F3 1.60 [facility] [address] [facility] [id number] [address] [place] [phone] Nov, Bipolar 1 disorder, mixed F3 1.60 [facility] [address] [facility] [id number] [address] [place] [id number] Nov, Bipolar 1 disorder, mixed F3 1.60 [facility] [address] [facility] [id number] [address] [place] [phone] Nov, Allergic rhinitis J30.9 [facility] [address] [facility] [id number] [address] [place] [phone] Nov, Allergic rhinitis J30.9 [facility] [address] [facility] [id number] [address] [place] [phone] Nov, [facility] [address] [facility] [id number] [address] [place] [id number] Nov, Bipolar 1 disorder, mixed F3 1.60 [facility] [address] [facility] [id number] [address] [place] [id number] Nov, Fibromyalgia M79.7 and Aller gic rhinitis J30.9 [facility] [address] [facility] [id number] [address] [place] [phone] October, Bipolar 1 disorder, mixed F3 1.60 [facility] [address] [facility] [id number] [address] [place] [phone] October, Acute nasopharyngitis J00 [facility] [address] [facility] [id number] [address] [place] [id number] October, Bitten or stung by nonvenomo us insect and other nonvenomous arthropods, initial encounter W57.XXXA and Insect bite (nonvenomous) of abdominal wall, initial encounter S30.861A [facility] [address] [facility] [id number] [address] [place] [phone] October, Insect bite (nonvenomous) of abdominal wall, initial encounter S30.861A ; Bitten or stung by nonvenomous insect and other nonvenomous arthropods, initial encounter W57.XXXA ; Allergic rhinitis J30.9 and Low back pain M54.5 [facility] [address] [facility] [id number] [address] [place] [phone] October, Bipolar 1 disorder, mixed F3 1.60 [facility] [address] [facility] [id number] [address] [place] [phone] October, [facility] [address] [place] [id number] [address] [place] [phone] October, [facility] [address] [facility] [id number] [address] [place] [phone] October, Bipolar 1 disorder, mixed F3 1.60 [facility] [address] [place] [id number] [address] [place] [id number] Sep, Bipolar 1 disorder, mixed F3 1.60 [facility] [address] [facility] [id number] [address] [place] [phone] Sep, Other chronic pain G89.29 [facility] [address] [facility] [id number] [address] [place] [phone] Sep, [facility] [address] [facility] [id number] [address] [place] [phone] Sep, Bipolar 1 disorder, mixed F3 1.60 [facility] [address] [id number] [address] [place] [id number] Sep, Allergic rhinitis J30.9 and Sciatica of left side M54.32 [facility] [address] [facility] [id number] [address] [place] [phone] Sep, Bipolar 1 disorder, mixed F3 1.60 [facility] [address] [facility] [id number] [address] [place] [phone] Sep, Bipolar 1 disorder, mixed F3 1.60 and Generalized anxiety disorder F41.1 [facility] [address] [id number] [address] [place] [phone] Aug, [facility] [address] [facility] [id number] [address] [place] [id number] Aug, Bipolar 1 disorder, mixed F3 1.60 [facility] [address] [place] [place] [id number] [address] [place] [id number] Aug, Bipolar 1 disorder, mixed F3 1.60 [facility] [address] [facility] [id number] [address] [place] [phone] Aug, [facility] [address] [facility] [id number] [address] [place] [phone] Aug, Generalized anxiety disorder F41.1 [facility] [address] [place] [id number] [address] [place] [phone] Aug, Bipolar 1 disorder, mixed F3 1.60 [facility] [address] [facility] [id number] [address] [place] [phone] Aug, Plantar wart of right foot B 07.0 [facility] [address] [facility] [id number] [address] [place] [phone] Aug, Bipolar 1 disorder, mixed F3 1.60 [facility] [address] [place] [place] [id number] [address] [place] [phone] Jul, Bipolar 1 disorder, mixed F3 1.60 [facility] [address] [place] [place] [id number] [address] [place] [id number] Jul, [facility] [address] [facility] [id number] [address] [place] [id number] 14 Jul, 2017 Bipolar 1 disorder, mixed F3 1.60 [facility] [address] [place] [place] [id number] [address] [place] [id number] Jul, Generalized anxiety disorder F41.1 [facility] [address] [place] [place] [id number] [address] [place] [id number] Jul, Bipolar 1 disorder, mixed F3 1.60 [place] [id number] [place] [address] Jul, Acute left-sided low back pa in with left-sided sciatica M54.42 [place] [address] [place] [id number] [address] [place] [phone] Jul, Coccydynia M53.3 [facility] [address] [place] [place] [id number] [address] [place] [phone] Jun, Bipolar 1 disorder, mixed F3 1.60 [facility] [address] [place] [id number] [address] [place] [phone] Jun, Acute nasopharyngitis J00 [facility] [address] [place] [id number] [address] [place] [id number] Jun, Bipolar 1 disorder, mixed F3 1.60 [facility] [address] [place] [id number] [address] [place] [phone] Jun, Fibromyalgia M79.7 [facility] [address] [facility] [id number] [address] [place] [phone] Jun, Bipolar 1 disorder, mixed F3 1.60 [facility] [address] [place] [id number] [address] [place] [phone] Jun, Fibromyalgia M79.7 and Bipol ar 1 disorder, mixed F31.60 [facility] [address] [id number] 27 May, 2017 Bipolar 1 disorder, mixed F3 1.60 ; Generalized anxiety disorder F41.1 and Other roasterman (current) drug therapy Z79.899 [place] [id number] [phone] May, Bipolar 1 disorder, mixed F3 1.60 [facility] [address] [address] 14 May, 2017 Cough R05 and Body aches R52 [facility] [address] [address] 10 May, 2017 Bladder spasm N32.89 and Acu te cystitis without hematuria N30.00 [place] [address] [address] 07 May, 2017 Bipolar 1 disorder, mixed F3 1.60 [place] [address] [address] 30 Apr, 2017 [place] [address] [address] Apr, Major depressive disorder, r ecurrent episode, moderate F33.1 and Encounter for immunization Z23 [place] [address] [address] Apr, Bipolar 1 disorder, mixed F3 1.60 [place] [address] [address] Apr, Bipolar 1 disorder, mixed F3 1.60 [place] [address] [address] 16 Apr, 2017 Bipolar 1 disorder, mixed F3 1.60 [place] [address] [address] 13 Apr, 2017 Yeast vaginitis B37.3 [place] [address] [address] Apr, Bipolar 1 disorder, mixed F3 1.60 [facility] [address] [place] [place] [id number] [address] [place] [id number] Apr, Cellulitis L03.[address] for immunization Z23 [facility] [address] [place] [id number] [address] [place] [id number] Apr, Bipolar 1 disorder, mixed F3 1.60 [facility] [address] [place] [id number] [address] [place] [address] Mar, Bipolar 1 disorder, mixed F3 1.60 [facility] [address] [address] Mar, Bipolar 1 disorder, mixed F3 1.60 [facility] [address] [address] Mar, Imbalance R26.89 [address] En[address] er for immunization Z23 [facility] [address] [place] [id number] [address] [place] [phone] Mar, Generalized anxiety disorder F41.1 [facility] [address] [address] Mar, Bipolar 1 disorder, mixed F3 1.60 [facility] [address] [place] [id number] [address] [place] [id number] Mar, Generalized anxiety disorder F41.1 [facility] [id number] [place] [id number] Mar, Bipolar 1 disorder, mixed F3 1.60 [facility] [id number] [place] [id number] Mar, Bipolar 1 disorder, mixed F3 1.60 [facility] [id number] [place], [place] [id number] Feb, Bipolar 1 disorder, mixed F3 1.60 [facility] [id number] [place] [id number] Feb, Bipolar 1 disorder, mixed F3 1.60 and Generalized anxiety disorder F41.1 [facility] [id number] [place] [id number] Feb, Gastritis without bleeding, unspecified chronicity, unspecified gastritis type K29.70 ; Hammer toe of right foot M20.41 and Other viral warts B07.8 [facility] [id number] [place] [id number] Feb, Bipolar 1 disorder, mixed F3 1.60 [address] [id number] [place] [id number] Feb, Bipolar 1 disorder, mixed F3 1.60 [address] [place] [id number] [place] [id number] Feb, Bipolar 1 disorder, mixed F3 1.60 [address] [phone] Jan, Encounter for screening mamm ogram for breast cancer Z12.31 ; Other viral warts B07.8 and Allergic rhinitis J30.9 [place] [place] [id number] [place] [id number] Jan, Bipolar 1 disorder, mixed F3 1.60 [place] [id number] [place] [phone] Jan, Bipolar 1 disorder, mixed F3 1.60 [place] [id number] [place] [id number] Jan, [facility] [id number] [place] [id number] Jan, Bipolar 1 disorder, mixed F3 1.60 [place] [id number] [place] [id number] Jan, Bipolar 1 disorder, mixed F3 1.60 [place] [id number] [place] [phone] Jan, Allergic rhinitis J30.9 ; He maturia R31.9 and Colon cancer screening Z12.11 [facility] [address] [id number] [address] [place] [phone] Dec, Bipolar 1 disorder, mixed F3 1.60 [facility] [address] [id number] [address] [place] [phone] Dec, Bipolar 1 disorder, mixed F3 1.60 ; Generalized anxiety disorder F41.1 and 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 (current) drug therapy Z79.899 [place] [id number] [facility] [id number] [address] [place] [phone] Dec, Bipolar 1 disorder, mixed F3 1.60 [place] [address] [id number] [address] [place] [phone] Dec, Bipolar 1 disorder, mixed F3 1.60 [place] [address] [address] Dec, Bipolar 1 disorder, mixed F3 1.60 [place] [address] [place] [place] [id number] [address] [place] [phone] Dec, Low back pain M54.5 and Recu rrent urinary tract infection N39.0 [place] [address] [place] [id number] [address] [place] [phone] Nov, Bipolar 1 disorder, mixed F3 1.60 [place] [address] [place] [place] [id number] [address] [place] [address] Nov, Bipolar 1 disorder, mixed F3 1.60 [place] [id number] [place] [id number] [address] [place] [address] Nov, Bipolar 1 disorder, mixed F3 1.60 [place] [address] [id number] [address] [place] [id number] Nov, Bipolar 1 disorder, mixed F3 1.60 [facility] [address] [id number] [address] [place] [address] Nov, [place] [address] [place] [id number] [address] [place] [id number] Nov, Anesthesia of skin R20.0 ; F requent UTI N39.0 ; Tobacco abuse Z72.0 and Colon cancer screening Z12.11 [place] [address] [place] [id number] [address] [place] [address] Nov, Bipolar 1 disorder, mixed F3 1.60 [place] [address] [address] October, Bipolar 1 disorder, mixed F3 1.60 [place] [address] October, Bipolar 1 disorder, mixed F3 1.60 [place] [address] [address] October, Bipolar 1 disorder, mixed F3 1.60 [place] [address] [address] October, Bipolar 1 disorder, mixed F3 1.60 [place] [address] [address] October, Bipolar 1 disorder, mixed F3 1.60 [place] [address] [address] October, Cervicalgia M54.2 and Bipola r 1 disorder, mixed F31.60 [place] [address] [address] October, Hypertension I10 ; Hyperlipi demia, unspecified hyperlipidemia type E78.5 and Family history of thyroid disease Z83.49 [place] [address] [address] October, [place] [address] [address] October, Hypertension I10 ; Hyperlipi demia, unspecified hyperlipidemia type E78.5 and Family history of thyroid problem Z83.49 [facility] [address] [id number] [address] [place] [phone] October, Bipolar 1 disorder, mixed F3 1.60 [facility] [address] [id number] [address] [place], [place] [address] Sep, Bipolar 1 disorder, mixed F3 1.60 [facility] [address] [id number] [address] [place] [address] Sep, Bipolar 1 disorder, mixed F3 1.60 [place] [address] [id number] [address] [place] [address] Sep, Bipolar 1 disorder, mixed F3 1.60 [place] [address] [id number] [address] Sep, History of colon polyps Z86. 010 and Hematochezia K92.1 [place] [address] [place] [id number] [address] [place] [address] Sep, Major depressive disorder, r ecurrent episode, moderate F33.1 [place] [address] [place] [place] [id number] [address] [place] [id number] Sep, Bipolar 1 disorder, mixed F3 1.60 [place] [id number] [place] [id number] [address] [place] [address] Aug, Hot flashes due to menopause N95.1 [facility] [address] [id number] [address] [place] [id number] Aug, Bipolar 1 disorder, mixed F3 1.60 [facility] [address] [id number] [address] [place] [address] Aug, [place] [address] [id number] [address] [place] [phone] Aug, Bipolar 1 disorder, mixed F3 1.60 [facility] [address] [id number] [address] [place] [address] Aug, Bipolar 1 disorder, mixed F3 1.60 [place] [address] [address] Aug, Hot flashes due to menopause N95.1 ; Cervicalgia M54.2 and Ataxia R27.0 [place] [address] [address] Jul, Bipolar 1 disorder, mixed F3 1.60 [place] [address] Jul, Bipolar 1 disorder, mixed F3 1.60 [place] [address] Jul, Bipolar 1 disorder, mixed F3 1.60 [place] [address] Jul, Bipolar 1 disorder, mixed F3 1.60 [place] [address] [address] Jul, Bipolar 1 disorder, mixed F3 1.60 [place] [address] [address] Jul, Cervicalgia M54.2 ; Tremor R 25.1 ; Hearing abnormally acute, unspecified laterality H93.239 ; Alopecia L65.9 ; Encounter for immunization Z23 and Family history of thyroid disease Z83.49 [place] [address] [address] Jul, Bipolar 1 disorder, mixed F3 1.60 [place] [address] [address] Jun, [place] [address] Jun, Hearing disorder, unspecifie d laterality H93.299 [place] [address] [address] Jun, Bipolar 1 disorder, mixed F3 1.60 [facility] [address] [id number] [address] [place] [id number] Jun, Bipolar 1 disorder, mixed F3 1.60 [facility] [address] [facility] [id number] [address] [place] [phone] Jun, Allergic rhinitis J30.9 [facility] [address] [id number] [address] [place] [address] Jun, Bipolar 1 disorder, mixed F3 1.60 [facility] [address] [id number] [address] [place] [phone] Jun, Bipolar 1 disorder, mixed F3 1.60 [facility] [address] [id number] [address] [place] [address] Jun, Allergic rhinitis J30.9 [facility] [address] [id number] [address] [place] [id number] Jun, Allergic rhinitis J30.9 [facility] [address] [id number] [address] [place] [id number] Jun, Bipolar 1 disorder, mixed F3 1.60 [facility] [address] [id number] [address] [place] [id number] May, Bipolar 1 disorder, mixed F3 1.60 [facility] [address] [id number] [address] [place] [phone] May, Bipolar 1 disorder, mixed F3 1.60 [facility] [address] [id number] [address] [place] [phone] May, [facility] [address] [id number] [address] [place] [phone] May, Bipolar 1 disorder, mixed F3 1.60 [facility] [address] [facility] [id number] [address] [place] [phone] May, Bipolar 1 disorder, mixed F3 1.60 [facility] [address] [facility] [id number] [address] [place] [address] May, [facility] [address] [facility] [id number] [address] [place] [phone] May, [facility] [address] [facility] [id number] [address] [place] [phone] May, [facility] [address] [facility] [id number] [address] [place] [address] May, Abdominal pain, unspecified location R10.9 [facility] [address] [facility] [id number] [address] [place] [phone] May, [facility] [address] [facility] [id number] [address] [place] [address] Apr, Hematuria R31.9 ; Ataxia R27 .0 and Hearing loss, unspecified laterality H91.90 [facility] [address] [facility] [id number] [address] [place] [id number] Apr, Bipolar 1 disorder, mixed F3 1.60 [facility] [address] [facility] [id number] [address] [place] [phone] Apr, Acute effusion of both middl e ears H65.193 [facility] [address] [facility] [id number] [address] [place] [phone] Apr, Hematuria R31.9 and Pyelonep hritis N12 [facility] [address] [facility] [id number] [address] [place] [id number] Apr, [facility] [address] [facility] [id number] [address] [place] [id number] Mar, Bipolar 1 disorder, mixed F3 1.60 [facility] [address] [facility] [id number] [address] [place] [phone] Mar, [facility] [address] [facility] [id number] [address] [place] [phone] Mar, Bipolar 1 disorder, mixed F3 1.60 [facility] [address] [facility] [id number] [address] [place] [id number] Mar, Bipolar 1 disorder, mixed F3 1.60 [place] [address] [place] [id number] [address] [place] [id number] Mar, Encounter for immunization Z 23 and Gastritis without bleeding, unspecified chronicity, unspecified gastritis type K29.70 [place] [address] [place] [id number] [address] [place] [id number] Mar, Bipolar 1 disorder, mixed F3 1.60 and Grief F43.20 [place] [address] [facility] [id number] [address] [place] [phone] Mar, Gastritis without bleeding, unspecified chronicity, unspecified gastritis type K29.70 [place] [address] [id number] [address] [place] [address] Mar, Bipolar 1 disorder, mixed F3 1.60 [place] [address] [id number] [address] [place] [phone] Mar, Gastritis without bleeding, unspecified chronicity, unspecified gastritis type K29.70 [place] [address] [id number] [address] [place] [phone] Mar, [place] [address] [id number] [address] [place] [id number] 27 Feb, 2016 Bipolar 1 disorder, mixed F3 1.60 [place] [address] [id number] [address] [place] [phone] Feb, Bipolar 1 disorder, mixed F3 1.60 and Grief F43.20 [place] [address] [facility] [id number] [address] [place] [phone] Feb, Gastritis without bleeding, unspecified chronicity, unspecified gastritis type K29.70 [facility] [address] [facility] [id number] [address] [place] [id number] 14 Feb, 2016 Bipolar 1 disorder, mixed F3 1.60 [facility] [address] [facility] [id number] [address] [place] [id number] Feb, Gastroesophageal reflux dise ase, esophagitis presence not specified K21.9 [place] [address] Jan, Bipolar 1 disorder, mixed F3 1.60 [place] [address] Jan, Bipolar 1 disorder, mixed F3 1.60 and Unsteady gait R26.81 [place] [address] Jan, Bipolar 1 disorder, mixed F3 1.60 [place] [address] Jan, Bipolar 1 disorder, mixed F3 1.60 and 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 (current) drug therapy Z79.899 [place] [address] [place] [address] Jan, Bipolar 1 disorder, mixed F3 1.60 [place] [address] [address] Jan, Bipolar 1 disorder, mixed F3 1.60 [place] [address] Jan, Bipolar 1 disorder, mixed F3 1.60 ; Grief F43.20 and 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 (current) drug therapy Z79.899 [place] [address] [place] [address] Jan, Bipolar 1 disorder, mixed F3 1.60 [place] [address] [place] 8[address] Dec, [place] [address] [place] 8[address] Dec, Bipolar 1 disorder, mixed F3 1.60 ; Vitamin D deficiency, unspecified E55.9 ; H/O allergic rhinitis Z87.09 ; Other chronic pain G89.29 and Dorsalgia, unspecified M54.9 [facility] [address] [id number] [address] [place] [phone] Dec, [facility] [address] [id number] [address] [place] [id number] Dec, Bipolar 1 disorder, mixed F3 1.60 [facility] [address] [facility] [id number] [address] [place] [id number] Dec, Major depressive disorder, r ecurrent episode, moderate F33.1 [place] [address] [facility] [id number] [address] [place] [id number] Dec, Major depressive disorder, r ecurrent episode, moderate F33.1 [place] [address] [facility] [id number] [address] [place] [phone] Nov, [place] [address] [facility] [id number] [address] [place] [phone] Nov, Bipolar 1 disorder, mixed F3 1.60 [place] [id number] [facility] [id number] [address] [place] [id number] Nov, Major depressive disorder, r ecurrent episode, moderate F33.1 [place] [id number] [facility] [id number] [address] [place] [address] Nov, Cervicalgia M54.2 ; Arthralg ia of hip, unspecified laterality M25.559 ; Allergic rhinitis J30.9 and Hormone replacement therapy Z79.890 [facility] [address] [facility] [id number] [address] [place] [id number] Nov, Other seasonal allergic rhin itis J30.2 [facility] [address] [facility] [id number] [address] [place] [id number] October, Major depressive disorder, r ecurrent episode, moderate F33.1 [facility] [address] [facility] [id number] [address] [place] [id number] October, Major depressive disorder, r ecurrent episode, moderate F33.1 and Arthralgia of hip, unspecified laterality M25.559 [facility] [address] [facility] [id number] [address] [place] [address] October, Grief F43.20 ; Hypertension I10 ; Hyperlipidemia, unspecified hyperlipidemia type E78.5 ; Other chronic pain G89.29 and Allergic rhinitis, unspecified allergic rhinitis type J30.9 [place] [address] [facility] [id number] [address] [place] [id number] October, Major depressive disorder, r ecurrent episode, moderate F33.1 [place] [address] [facility] [id number] [address] [place] [phone] Sep, Major depressive disorder, r ecurrent episode, moderate F33.1 [place] [address] [facility] [id number] [address] [place] [phone] Sep, [place] [address] [place] [id number] [address] [place] [phone] Sep, Major depressive disorder, r ecurrent episode, moderate F33.1 [place] [address] [facility] [id number] [address] [place] [phone] Sep, Grief F43.20 [place] [address] [place] [id number] [address] [place] [phone] Aug, Major depressive disorder, r ecurrent episode, moderate F33.1 [place] [address] [facility] [id number] [address] [place] [phone] Aug, Bipolar 1 disorder, mixed F3 1.60 [place] [address] [facility] [id number] [address] [place] [address] Aug, Allergic rhinitis J30.9 ; Ce rvicalgia M54.2 and Low back pain M54.5 [facility] [address] [facility] [id number] [address] [place] [phone] Aug, Major depressive disorder, r ecurrent episode, moderate F33.1 [facility] [address] [facility] [id number] [address] [place] [address] Aug, Sinusitis J32.9 and Tobacco 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 [facility] [address] [facility] [id number] [address] [place] [id number] Aug, [facility] [address] [facility] [id number] [address] [place] [phone] Aug, Depressive disorder, not els ewhere classified F32.9 ; Hormone replacement therapy Z79.[address] scan, head R93.0 [facility] [address] [facility] [id number] [address] [place] [phone] Aug, Major depressive disorder, r ecurrent episode, moderate F33.1 [facility] [address] [place] [id number] [address] [place] [id number] Jul, Major depressive disorder, r ecurrent episode, moderate F33.1 [facility] [address] [place] [id number] [address] [place] [id number] Jul, Abdominal pain R10.9 and Hyp ertension I10 [facility] [address] [facility] [id number] [address] [place] [phone] 08 Jul, 2015 [facility] [id number] [address] [place] [id number] 05 Jul, 2015 Major depressive disorder, r ecurrent episode, moderate F33.1 [facility] [address] [id number] [address] [place] [phone] Jul, [facility] [address] [facility] [id number] [address] [place] [phone] Jul, [facility] [address] [id number] [address] [place] [phone] Jun, [facility] [address] [facility] [id number] [address] [place] [phone] Jun, Depressive disorder, not els ewhere classified F32.9 [facility] [address] [place] [id number] [address] [place] [phone] Jun, [facility] [address] [id number] [address] [place] [phone] Jun, [facility] [address] [facility] [id number] [address] [place] [phone] Jun, Arthralgia of hip, unspecifi ed laterality M25.559 ; Bruising, spontaneous R23.3 and Night sweats R61 [facility] [address] [id number] [address] [place] [phone] Jun, [facility] [address] [id number] [address] [place] [id number] Jun, [facility] [address] [facility] [id number] [address] [place] [address] May, [facility] [address] [place] [place] [id number] [address] [place] [id number] May, Myalgia M79.1 and Screening, lipid Z13.220 [facility] [address] [facility] [id number] [address] [place] [phone] Apr, Status post cervical spinal fusion Z98.1 ; Fibromyalgia M79.7 and Unsteady gait R26.81 [facility] [address] [facility] [id number] [address] [place] [phone] Nov, [facility] [address] [facility] [id number] [address] [place] [phone] Nov, [facility] [address] [id number] [address] [place] [phone] October, [facility] [address] [facility] [id number] [address] [place] [phone] October, [facility] [address] [facility] [id number] [address] [place] [phone] October, [facility] [address] [facility] [id number] [address] [place] [phone] October, [facility] [address] [id number] [address] [place] [phone] October, [facility] [address] [id number] [address] [place] [phone] October, Dysuria 788.1 ; Nausea 787.0 2 and Urinary tract infection 599.0 [facility] [address] [id number] [address] [place] [address], [place] [phone] Sep, [facility] [address] [id number] [address] [place] [phone] Sep, [facility] [address] [id number] [address] [place] [address], [place] [id number] Aug, [facility] [address] [id number] [address] [place] [phone] Aug, [facility] [address] [id number] [address] [place] [address], [place] [phone] Aug, [facility] [address] [id number] [address] [place] [phone] Aug, [facility] [address] [id number] [address] [place] [address], [place] [phone] Aug, [facility] [address] [id number] [address] [place] [phone] Aug, [facility] [address] [id number] [address] [place] [address], [place] [id number] Aug, [facility] [address] [id number] [address] [place] [phone] Aug, [facility] [address] [id number] [address] [place] [id number] Aug, [facility] [address] [id number] [address] [place] [address] Aug, [facility] [address] [id number] [address] [place] [address] Aug, [facility] [address] [id number] [address] [place] [address], [place] [address] 13 Aug, 2014 [facility] [address] [id number] [address] [place] [address], [place] [address] 13 Aug, 2014 [facility] [address] [id number] [address] [place] [address], [place] [address] Aug, [facility] [address] [id number] [address] [place] [address], [place] [address] Aug, [facility] [address] [id number] [address] [place] [address], [place] [address] Aug, [facility] [address] [id number] [address] [place] [address], [place] [address] Aug, [facility] [address] [id number] [address] [place] [address], [place] [address] Aug, [facility] [address] [id number] [address] [place] [address], [place] [address] 05 Aug, 2014 [facility] [address] [id number] [address] [place] [address], [place] [address] Aug, [facility] [address] [id number] [address] [place] [address], [place] [address] Aug, [facility] [address] [id number] [address] [place] [address], [place] [address] Aug, [facility] [address] [id number] [address] [place] [address], [place] [address] Jul, [facility] [address] [id number] [address] [place] [address], [place] [address] Jul, [facility] [address] [id number] [address] [place] [address], [place] [address] Jul, [facility] [address] [id number] [address] [place] [address], [place] [address] Jul, [facility] [address] [id number] [address] [place] [address], [place] [address] Jul, 2014 [facility] [address] [id number] [address] [place] [address], [place] [address] Jul, 2014 [facility] [address] [id number] [address] [place] [address], [place] [address] Jul, 2014 [facility] [address] [id number] [address] [place] [address], [place] [address] Jul, 2014 [facility] [address] [id number] [address] [place] [address], [place] [address] Jul, 2014 [facility] [address] [id number] [address] [place] [address], [place] [address] Jul, 2014 [facility] [address] [id number] [address] [place] [address], [place] [address] Jul, 2014 [facility] [address] [id number] [address] [place] [address], [place] [address] Jul, 2014 [facility] [address] [id number] [address] [place] [address], [place] [address] Jul, [facility] [address] [id number] [address] [place] [address], [place] [address] Jul, [facility] [address] [id number] [address] [place] [address], [place] [address] Jun, [facility] [address] [id number] [address] [place] [address], [place] [address] Jun, [facility] [address] [id number] [address] [place] [address], [place] [address] Jun, [facility] [address] [id number] [address] [place] [address], [place] [address] Jun, [facility] [address] [id number] [address] [place] [address], [place] [address] Jun, [facility] [address] [id number] [address] [place] [address] [address] Jun, [facility] [address] [id number] [address] [place] [address], [place] [address] May, [facility] [address] [id number] [address] [place] [address], [place] [address] May, [facility] [address] [id number] [address] [place] [address], [place] [address] May, [facility] [address] [id number] [address] [place] [address], [place] [address] May, [facility] [address] [id number] [address] [place] [address], [place] [address] May, [facility] [address] [id number] [address] [place] [address], [place] [address] May, [facility] [address] [id number] [address] [place] [address], [place] [address] Apr, [facility] [address] [id number] [address] [place] [address], [place] [address] Apr, [facility] [address] [id number] [address] [place] [address], [place] [address] Apr, [facility] [address] [id number] [address] [place] [address], [place] [address] Apr, [facility] [address] [id number] [address] [place] [address], [place] [address] Apr, [facility] [address] [id number] [address] [place] [address], [place] [address] Apr, [facility] [address] [id number] [address] [place] [address], [place] [address] Mar, [facility] [address] [id number] [address] [place] [address], [place] [address] Mar, [facility] [address] [id number] [address] [place] [address], [place] [address] Mar, [facility] [address] [id number] [address] [place] [address], [place] [address] 09 Mar, 2013 [facility] [address] [id number] [address] [place] [address], [place] [address] Mar, 2013 [facility] [address] [id number] [address] [place] [address], [place] [address] Mar, 2013 [facility] [address] [id number] [address] [place] [address], [place] [address] Mar, 2013 [facility] [address] [id number] [address] [place] [address], [place] [address] Mar, 2013 [facility] [address] [id number] [address] [place] [address], [place] [address] Mar, 2013 [facility] [address] [id number] [address] [place] [address], [place] [address] Mar, 2013 [facility] [address] [id number] [address] [place] [address], [place] [address] Mar, 2013 [facility] [address] [id number] [address] [place] [address], [place] [address] Mar, 2013 [facility] [address] [id number] [address] [place] [address], [place] [address] 30 Sep, 2013 [facility] [address] [id number] [address] [place] [address], [place] [address] 29 Sep, 2013 [facility] [address] [id number] [address] [place] [address], [place] [address] 29 Sep, 2013 [facility] [address] [id number] [address] [place] [address], [place] [address] 23 Sep, 2013 [facility] [address] [id number] [address] [place] [address], [place] [address] 23 Sep, 2013 [facility] [address] [id number] [address] [place] [address], [place] [address] 08 Sep, 2013 [facility] [address] [id number] [address] [place] [address], [place] [address] Feb, [facility] [address] [id number] [address] [place] [address], [place] [address] Jan, [facility] [address] [id number] [address] [place] [address], [place] [address] Jan, [facility] [address] [id number] [address] [place] [address], [place] [address] Jan, [facility] [address] [id number] [address] [place] [address], [place] [address] Dec, [facility] [address] [id number] [address] [place] [address], [place] [address] Dec, [facility] [address] [id number] [address] [place] [address], [place] [address] Dec, [facility] [address] [id number] [address] [place] [address], [place] [address] Dec, [facility] [address] [id number] [address] [place] [address], [place] [address] Sep, [facility] [address] [id number] [address] [place] [address], [place] [address] Sep, [facility] [address] [id number] [address] [place] [address], [place] [address] Sep, [facility] [address] [id number] [address] [place] [address], [place] [address] Sep, [facility] [address] [id number] [address] [place] [address], [place] [address] Sep, [facility] [address] [id number] [address] [place] [address], [place] [address] Sep, [facility] [address] [id number] [address] [place] [address], [place] [address] Sep, [facility] [address] [id number] [address] [place] [address], [place] [address] Sep, [facility] [address] [id number] [address] [place] [address], [place] [address] 10 Aug, 2013 [facility] [address] [id number] [address] [place] [address], [place] [address] Aug, [facility] [address] [id number] [address] [place] [address], [place] [address] May, [facility] [address] [id number] [address] [place] [address], [place] [address] May, [facility] [address] [id number] [address] [place] [address], [place] [address] Apr, [facility] [address] [id number] [address] [place] [address], [place] [address] Apr, [facility] [address] [id number] [address] [place] [address], [place] [address] Apr, [facility] [address] [id number] [address] [place] [address], [place] [address] Apr, [facility] [address] [id number] [address] [place] [address], [place] [address] Apr, [facility] [address] [id number] [address] [place] [address], [place] [address] Apr, [facility] [address] [id number] [address] [place] [address], [place] [address] May, [facility] [address] [id number] [address] [place] [address], [place] [address] 18 May, 2012 [facility] [address] [id number] [address] [place] [address], [place] [address] 15 May, 2012 [facility] [address] [id number] [address] [place] [address], [place] [address] 15 May, 2012 [facility] [address] [id number] [address] [place] [address], [place] [address] 13 May, 2012 [facility] [address] [id number] [address] [place] [address], [place] [address] 13 May, 2012 [facility] [address] [id number] [address] [place] [address], [place] [address] 13 Apr, 2012 [facility] [address] [id number] [address] [place] [address], [place] [address] 13 Apr, 2012 [facility] [address] [id number] [address] [place] [address], [place] [address] 08 Apr, 2012 [facility] [address] [id number] [address] [place] [address], [place] [address] Apr, [facility] [address] [id number] [address] [place] [address], [place] [address] 08 Apr, 2012 [facility] [address] [id number] [address] [place] [address], [place] [address] Apr, [facility] [address] [id number] [address] [place] [address], [place] [address] Apr, [facility] [address] [id number] [address] [place] [address], [place] [address] Apr, [facility] [address] [id number] [address] [place] [address], [place] [address] Apr, [facility] [address] [id number] [address] [place] [address], [place] [address] Apr, [facility] [address] [id number] [address] [place] [address], [place] [address] Mar, [facility] [address] [id number] [address] [place] [address], [place] [address] Mar, [facility] [address] [id number] [address] [place] [address], [place] [address] Mar, [facility] [address] [id number] [address] [place] [address], [place] [address] Mar, [facility] [address] [id number] [address] [place] [address], [place] [address] Mar, [facility] [address] [id number] [address] [place] [address], [place] [address] Mar, [facility] [address] [id number] [address] [place] [address], [place] [address] Mar, [facility] [address] [id number] [address] [place] [address], [place] [address] Mar, [facility] [address] [id number] [address] [place] [address], [place] [address] Mar, [facility] [address] [id number] [address] [place] [address], [place] [address] 25 Feb, 2012 [facility] [address] [id number] [address] [place] [address], [place] [address] 16 Feb, 2012 [facility] [address] [id number] [address] [place] [address], [place] [address] Feb, [facility] [address] [id number] [address] [place] [address], [place] [address] Jan, [facility] [address] [id number] [address] [place] [address], [place] [address] Jan, [facility] [address] [id number] [address] [place] [address], [place] [address] Jan, [facility] [address] [id number] [address] [place] [address], [place] [address] Jan, [facility] [address] [id number] [address] [place] [address], [place] [address] Jan, [facility] [address] [id number] [address] [place] [address], [place] [address] Jan, [facility] [address] [id number] [address] [place] [address], [place] [address] 16 Jan, 2012 [facility] [address] [id number] [address] [place] [address], [place] [address] Jan, [facility] [address] [id number] [address] [place] [address], [place] [address] Jan, [facility] [address] [id number] [address] [place] [address] Jan, [facility] [address] [id number] [address] [place] [address], [place] [address] Dec, [facility] [address] [id number] [address] [place] [address], [place] [address] Dec, [facility] [address] [id number] [address] [place] [address], [place] [address] Dec, [facility] [address] [id number] [address] [place] [address], [place] [address] Dec, [facility] [address] [id number] [address] [place] [address], [place] [address] Nov, [facility] [address] [id number] [address] [place] [address], [place] [address] Nov, [facility] [address] [id number] [address] [place] [address], [place] [address] Nov, [facility] [address] [id number] [address] [place] [address], [place] [address] October, [facility] [address] [id number] [address] [place] [address], [place] [address] October, [facility] [address] [id number] [address] [place] [address], [place] [address] October, [facility] [address] [id number] [address] [place] [address], [place] [address] October, [facility] [address] [id number] [address] [place] [address], [place] [address] October, [facility] [address] [id number] [address] [place] [address], [place] [address] October, [facility] [address] [id number] [address] [place] [address], [place] [address] Aug, [facility] [address] [id number] [address] [place] [address], [place] [address] Mar, [facility] [address] [facility] [id number] [address] [place] [id number] 16 Nov, 2010 [facility] [address] [facility] [id number] [address] [place] [address] May, [facility] [address] [facility] [id number] [address] [place] [address] May, [facility] [address] [facility] [id number] [address] [place] [address] Apr, [facility] [address] [facility] [id number] [address] [place] [address] Mar, [facility] [address] [facility] [id number] [address] [place] [id number] Mar, IMMUNIZATIONS No Known Immunizations SOCIAL HISTORY Never Assessed REASON FOR VISIT EMR-[facility] [place] PLAN OF CARE [...]
--- OUTSIDE RECORDS SUMMARY | 2019-06-19 05:23 | XMS REPORT ---
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 Name Role Phone Migration, Doctor Unavailable Unavailable PROBLEMS Type Condition ICD9-CM Code ROU73-LZ Code Onset Dates Condition S tatus SNOMED Code Problem Hormone replacement therapy Z79.890 Ac tive 089449813 Problem Sensorineural hearing loss (SNHL) of both ears H90 .3 Active 644985940 Problem Abnormal CT scan, head R93.0 Active 853247391 Problem Arthralgia of hip, unspecified laterality M25.559 Active 31983197 Problem Bruising, spontaneous R23.3 Active 623536870 Problem Hypertension I10 Active 0265199 3 Problem Night sweats R61 Active 2928611 0 Problem Hammer toe of right foot M20.41 Activ e 189012914 Problem Hematuria, unspecified type R31.9 Ac tive 80225440 Problem Bipolar 1 disorder, mixed F31.60 Acti ve 20581848 Problem Gastritis without bleeding, unspecified chronicity, unspecified gastritis type K29.70 Active 312508571 Problem Hearing loss, unspecified laterality H91.90 Active 54258040 Problem Ataxia R27.0 Active 98599723 Problem Hot flashes due to menopause N95.1 A ctive 037863820 Problem Allergic rhinitis J30.9 Active 61 024610 Problem Generalized anxiety disorder F41.1 A ctive 48085667 Problem History of colon polyps Z86.010 Active 714169573 Problem Imbalance R26.89 Active 471566529 Problem Major depressive disorder, recurrent episode, moderate F33.1 Active 265317453 Problem Fibromyalgia M79.7 Active 5148257 7 Problem Slow transit constipation K59.01 Acti ve 89696847 Problem Grief F43.20 Active 14523405 Problem Tobacco use disorder F17.200 Active 060846458 Problem Hyperlipidemia, unspecified hyperlipidemia type E7 8.5 Active 17328224 Problem Other chronic pain G89.29 Active 8 8249192 Problem Bladder spasm N32.89 Active 021048 006 Problem Acute left-sided low back pain with left-sided sciatica M54.42 Active 777065841 Problem Sciatica of left side M54.32 Active 35993917 Problem Plantar wart of right foot B07.0 Act mitchell [id number] ALLERGIES No Information ENCOUNTERS Encounter Location Date Diagnosis [facility] [address] [id number] [address] [place] [address] Sep, [facility] [address] [id number] [address] [place] [address] Sep, [facility] [address] [id number] [address] [place] [address] Sep, [facility] [address] [id number] [address] [place] [address] Sep, [facility] [address] [place] [id number] [address] [place] [address] Sep, [facility] [address] [facility] [id number] [address] [place] [address] Sep, [facility] [address] [facility] [id number] [address] [place] [address] Aug, [facility] [address] [place] [id number] [address] [place] [address] Aug, [facility] [address] [place] [id number] [address] [place] [address] Aug, Exercise counseling Z71.82 [facility] [address] [place] [id number] [address] [place] [address] Aug, Bipolar 1 disorder, mixed F3 1.60 [facility] [address] [facility] [id number] [address] [place] [address] Aug, Gastritis without bleeding, unspecified chronicity, unspecified gastritis type K29.70 ; Tobacco abuse Z72.0 ; Generalized anxiety disorder F41.1 and Weight gain R63.5 [facility] [address] [place] [id number] [address] [place] [address] Aug, Bipolar 1 disorder, mixed F3 1.60 ; Generalized anxiety disorder F41.1 and Tobacco use disorder F17.200 [facility] [address] [facility] [id number] [address] [place] [address] Jul, Bipolar 1 disorder, mixed F3 1.60 [facility] [address] [facility] [id number] [address] [place] [address] Jul, [facility] [address] [facility] [id number] [address] [place] [address] Jul, Bipolar 1 disorder, mixed F3 1.60 [facility] [address] [facility] [id number] [address] [place] [address] Jul, Allergic rhinitis J30.9 ; Ma darion depressive disorder, recurrent episode, moderate F33.1 and Tobacco 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 [facility] [address] [place] [id number] [address] [place] [address] Jun, [facility] [address] [facility] [id number] [address] [place] [address] Jun, [facility] [address] [facility] [id number] [address] [place] [address] Jun, Bipolar 1 disorder, mixed F3 1.60 [facility] [address] [facility] [id number] [address] [place] [address] Jun, Bipolar 1 disorder, mixed F3 1.60 [facility] [address] [facility] [id number] [address] [place] [address] Jun, Bipolar 1 disorder, mixed F3 1.60 [facility] [address] [facility] [id number] [address] [place] [address] Jun, Generalized anxiety disorder F41.1 ; Tobacco abuse Z72.0 and Major depressive disorder, recurrent episode, moderate F33.1 [facility] [address] [facility] [id number] [address] [place] [address] May, Bipolar 1 disorder, mixed F3 1.60 [facility] [address] [place] [id number] [address] [place] [address] May, Bipolar 1 disorder, mixed F3 1.60 and Generalized anxiety disorder F41.1 [facility] [address] [facility] [id number] [address] [place] [address] May, Bipolar 1 disorder, mixed F3 1.60 [facility] [address] [facility] [id number] [address] [place] [address] May, Allergic rhinitis J30.9 [facility] [address] [facility] [id number] [address] [place] [address] May, Bipolar 1 disorder, mixed F3 1.60 [place] [address] [place] [id number] [address] [place] [address] May, [place] [address] [place] [id number] [address] [place] [address] Apr, Allergic rhinitis J30.9 ; Dy sfunction of both eustachian tubes H69.83 ; History of bladder surgery Z98.890 and Cervicalgia M54.2 [place] [address] [place] [id number] [address] [place] [address] Mar, Bipolar 1 disorder, mixed F3 1.60 [place] [address] [place] [id number] [address] [place] [address] Mar, [place] [address] [place] [id number] [address] [place] [address] Mar, Slow transit constipation K5 9.01 ; Encounter for immunization Z23 and Generalized anxiety disorder F41.1 [facility] [address] [facility] [id number] [address] [place] [address] Feb, Bipolar 1 disorder, mixed F3 1.60 [facility] [address] [facility] [id number] [address] [place] [address] Feb, Allergic rhinitis J30.9 [facility] [address] [facility] [id number] [address] [place] [address] Feb, Bipolar 1 disorder, mixed F3 1.60 [facility] [address] [facility] [id number] [address] [place] [address] Feb, Bipolar 1 disorder, mixed F3 1.60 and Generalized anxiety disorder F41.1 [facility] [address] [facility] [id number] [address] [place] [phone] 13 Feb, 2018 Bipolar 1 disorder, mixed F3 1.60 [facility] [address] [facility] [id number] [address] [place] [address] Feb, Allergic rhinitis J30.9 [facility] [address] [facility] [id number] [address] [place] [phone] 05 Feb, 2018 [facility] [address] [facility] [id number] [address] [place] [address] Jan, Bipolar 1 disorder, mixed F3 1.60 [facility] [address] [place] [id number] [address] [place] [address] Jan, Low back pain M54.5 ; Hyperl ipidemia, unspecified hyperlipidemia type E78.5 and Bipolar 1 disorder, mixed F31.60 [facility] [address] [facility] [id number] [address] [place] [address] Jan, Bipolar 1 disorder, mixed F3 1.60 [facility] [address] [place] [id number] [address] [place] [address] Jan, Bipolar 1 disorder, mixed F3 1.60 [facility] [address] [place] [id number] [address] [place] [address] Jan, Bipolar 1 disorder, mixed F3 1.60 [facility] [address] [facility] [id number] [address] [place] [address] Jan, Bipolar 1 disorder, mixed F3 1.60 [facility] [address] [facility] [id number] [address] [place] [address] Dec, Bipolar 1 disorder, mixed F3 1.60 ; Generalized anxiety disorder F41.1 and 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 [facility] [address] [facility] [id number] [address] [place] [address] Dec, Other retirement (current) dr bin feliz Z79.899 [facility] [address] [facility] [id number] [address] [place] [address] Dec, Bipolar 1 disorder, mixed F3 1.60 [facility] [address] [facility] [id number] [address] [place] [address] Dec, Bipolar 1 disorder, mixed F3 1.60 [facility] [address] [facility] [id number] [address] [place] [address] Nov, Bipolar 1 disorder, mixed F3 1.60 [facility] [address] [facility] [id number] [address] [place] [address] Nov, Bipolar 1 disorder, mixed F3 1.60 [facility] [address] [facility] [id number] [address] [place] [address] Nov, Bipolar 1 disorder, mixed F3 1.60 [facility] [address] [facility] [id number] [address] [place] [address] Nov, Allergic rhinitis J30.9 [facility] [address] [facility] [id number] [address] [place] [address] Nov, Allergic rhinitis J30.9 [facility] [address] [facility] [id number] [address] [place] [address] Nov, [facility] [address] [facility] [id number] [address] [place] [address] Nov, Bipolar 1 disorder, mixed F3 1.60 [facility] [address] [facility] [id number] [address] [place] [address] Nov, Fibromyalgia M79.7 and Aller gic rhinitis J30.9 [facility] [address] [facility] [id number] [address] [place] [address] October, Bipolar 1 disorder, mixed F3 1.60 [facility] [address] [facility] [id number] [address] [place] [address] October, Acute nasopharyngitis J00 [facility] [address] [facility] [id number] [address] [place] [address] October, Bitten or stung by nonvenomo us insect and other nonvenomous arthropods, initial encounter W57.XXXA and Insect bite (nonvenomous) of abdominal wall, initial encounter S30.861A [facility] [address] [facility] [id number] [address] [place] [address] October, Insect bite (nonvenomous) of abdominal wall, initial encounter S30.861A ; Bitten or stung by nonvenomous insect and other nonvenomous arthropods, initial encounter W57.XXXA ; Allergic rhinitis J30.9 and Low back pain M54.5 [facility] [address] [facility] [id number] [address] [place] [address] October, Bipolar 1 disorder, mixed F3 1.60 [facility] [address] [facility] [id number] [address] [place] [address] October, [facility] [address] [place] [id number] [address] [place] [address] October, [facility] [address] [facility] [id number] [address] [place] [address] October, Bipolar 1 disorder, mixed F3 1.60 [facility] [address] [place] [id number] [address] [place] [address] Sep, Bipolar 1 disorder, mixed F3 1.60 [facility] [address] [facility] [id number] [address] [place] [address] Sep, Other chronic pain G89.29 [facility] [address] [facility] [id number] [address] [place] [address] Sep, [facility] [address] [facility] [id number] [address] [place] [address] Sep, Bipolar 1 disorder, mixed F3 1.60 [facility] [address] [id number] [address] [place] [address] Sep, Allergic rhinitis J30.9 and Sciatica of left side M54.32 [facility] [address] [facility] [id number] [address] [place] [address] Sep, Bipolar 1 disorder, mixed F3 1.60 [facility] [address] [facility] [id number] [address] [place] [address] Sep, Bipolar 1 disorder, mixed F3 1.60 and Generalized anxiety disorder F41.1 [facility] [address] [id number] [address] [place] [address] Aug, [facility] [address] [facility] [id number] [address] [place] [address] Aug, Bipolar 1 disorder, mixed F3 1.60 [facility] [address] [place] [id number] [address] [place] [address] Aug, Bipolar 1 disorder, mixed F3 1.60 [facility] [address] [facility] [id number] [address] [place] [address] Aug, [facility] [address] [facility] [id number] [address] [place] [address] Aug, Generalized anxiety disorder F41.1 [facility] [address] [place] [id number] [address] [place] [address] Aug, Bipolar 1 disorder, mixed F3 1.60 [facility] [address] [facility] [id number] [address] [place] [address] Aug, Plantar wart of right foot B 07.0 [facility] [address] [facility] [id number] [address] [place] [address] Aug, Bipolar 1 disorder, mixed F3 1.60 [facility] [address] [place] [id number] [address] [place] [address] Jul, Bipolar 1 disorder, mixed F3 1.60 [facility] [address] [place] [id number] [address] [place] [address] Jul, [facility] [address] [facility] [id number] [address] [place] [address] 14 Jul, 2017 Bipolar 1 disorder, mixed F3 1.60 [facility] [address] [place] [id number] [address] [place] [address] Jul, Generalized anxiety disorder F41.1 [facility] [address] [place] [id number] [address] [place] [address] Jul, Bipolar 1 disorder, mixed F3 1.60 [place] [id number] [place] [address] Jul, Acute left-sided low back pa in with left-sided sciatica M54.42 [place] [address] [place] [id number] [address] [place] [address] Jul, Coccydynia M53.3 [facility] [address] [place] [id number] [address] [place] [address] Jun, Bipolar 1 disorder, mixed F3 1.60 [facility] [address] [place] [id number] [address] [place] [address] Jun, Acute nasopharyngitis J00 [facility] [address] [place] [id number] [address] [place] [address] Jun, Bipolar 1 disorder, mixed F3 1.60 [facility] [address] [place] [id number] [address] [place] [address] Jun, Fibromyalgia M79.7 [facility] [address] [facility] [id number] [address] [place] [address] Jun, Bipolar 1 disorder, mixed F3 1.60 [facility] [address] [place] [id number] [address] [place] [address] Jun, Fibromyalgia M79.7 and Bipol ar 1 disorder, mixed F31.60 [facility] [address] [address] 27 May, 2017 Bipolar 1 disorder, mixed F3 1.60 ; Generalized anxiety disorder F41.1 and 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 [place] [id number] [address] May, Bipolar 1 disorder, mixed F3 1.60 [facility] [address] [address] 14 May, 2017 Cough R05 and Body aches R52 [facility] [address] [address] 10 May, 2017 Bladder spasm N32.89 and Acu te cystitis without hematuria N30.00 [place] [address] [address] 07 May, 2017 Bipolar 1 disorder, mixed F3 1.60 [place] [address] [address] 30 Apr, 2017 [place] [address] [address] Apr, Major depressive disorder, r ecurrent episode, moderate F33.1 and Encounter for immunization Z23 [place] [address] [address] Apr, Bipolar 1 disorder, mixed F3 1.60 [place] [address] [address] Apr, Bipolar 1 disorder, mixed F3 1.60 [place] [address] [address] 16 Apr, 2017 Bipolar 1 disorder, mixed F3 1.60 [place] [address] [address] 13 Apr, 2017 Yeast vaginitis B37.3 [place] [address] [address] Apr, Bipolar 1 disorder, mixed F3 1.60 [facility] [address] [place] [id number] [address] [place] [address] Apr, Cellulitis L03.[address] for immunization Z23 [facility] [address] [place] [id number] [address] [place] [address] Apr, Bipolar 1 disorder, mixed F3 1.60 [facility] [address] [place] [id number] [address] [place] [address] Mar, Bipolar 1 disorder, mixed F3 1.60 [facility] [address] [address] Mar, Bipolar 1 disorder, mixed F3 1.60 [facility] [address] [address] Mar, Imbalance R26.89 and Encount er for immunization Z23 [facility] [address] [place] [id number] [address] [place] [address] Mar, Generalized anxiety disorder F41.1 [facility] [address] [address] Mar, Bipolar 1 disorder, mixed F3 1.60 [facility] [address] [place] [id number] [place] [address] Mar, Generalized anxiety disorder F41.1 [facility] [address] [place] [id number] [address] [place] [address] Mar, Bipolar 1 disorder, mixed F3 1.60 [facility] [address] [place] [id number] [place] [address] Mar, Bipolar 1 disorder, mixed F3 1.60 [facility] [address] [place] [id number] [place], [place] [address] Feb, Bipolar 1 disorder, mixed F3 1.60 [facility] [address] [place] [id number] [address] [place] [address] Feb, Bipolar 1 disorder, mixed F3 1.60 and Generalized anxiety disorder F41.1 [facility] [address] [place] [id number] [address] [place] [address] Feb, Gastritis without bleeding, unspecified chronicity, unspecified gastritis type K29.70 ; Hammer toe of right foot M20.41 and Other viral warts B07.8 [facility] [address] [place] [id number] [place] [address] Feb, Bipolar 1 disorder, mixed F3 1.60 [place] [address] [place] [id number] [place] [address] Feb, Bipolar 1 disorder, mixed F3 1.60 [place] [address] [place] [id number] [place] [address] Feb, Bipolar 1 disorder, mixed F3 1.60 [place] [address] [address] Jan, Encounter for screening mamm ogram for breast cancer Z12.31 ; Other viral warts B07.8 and Allergic rhinitis J30.9 [place] [address] [place] [id number] [place] [address] Jan, Bipolar 1 disorder, mixed F3 1.60 [place] [address] [place] [id number] [place] [address] Jan, Bipolar 1 disorder, mixed F3 1.60 [place] [address] [place] [id number] [place] [address] Jan, [facility] [address] [place] [id number] [place] [address] Jan, Bipolar 1 disorder, mixed F3 1.60 [place] [address] [place] [id number] [place] [address] Jan, Bipolar 1 disorder, mixed F3 1.60 [place] [address] [place] [id number] [place] [address] Jan, Allergic rhinitis J30.9 ; He maturia R31.9 and Colon cancer screening Z12.11 [facility] [address] [place] [id number] [address] [place] [address] Dec, Bipolar 1 disorder, mixed F3 1.60 [facility] [address] [place] [id number] [place] [address] Dec, Bipolar 1 disorder, mixed F3 1.60 ; Generalized anxiety disorder F41.1 and 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.899 [place] [address] [facility] [id number] [address] [place] [address] Dec, Bipolar 1 disorder, mixed F3 1.60 [place] [address] [place] [id number] [place] [address] Dec, Bipolar 1 disorder, mixed F3 1.60 [place] [address] [address] Dec, Bipolar 1 disorder, mixed F3 1.60 [place] [address] [place] [id number] [place] [address] Dec, Low back pain M54.5 and Recu rrent urinary tract infection N39.0 [place] [address] [address] [place] [id number] [address] [place] [phone] Nov, Bipolar 1 disorder, mixed F3 1.60 [place] [address] [place] [id number] [address] [place] [id number] Nov, Bipolar 1 disorder, mixed F3 1.60 [place] [id number] [place] [id number] [address] [place] [phone] Nov, Bipolar 1 disorder, mixed F3 1.60 [place] [address] [place] [id number] [address] [place] [id number] Nov, Bipolar 1 disorder, mixed F3 1.60 [facility] [address] [place] [id number] [address] [place] [id number] Nov, [place] [address] [address] [place] [id number] [address] [place] [id number] Nov, Anesthesia of skin R20.0 ; F requent UTI N39.0 ; Tobacco abuse Z72.0 and Colon cancer screening Z12.11 [place] [address] [address] [place] [id number] [address] [place] [phone] Nov, Bipolar 1 disorder, mixed F3 1.60 [place] [address] [address] October, Bipolar 1 disorder, mixed F3 1.60 [place] [address] October, Bipolar 1 disorder, mixed F3 1.60 [place] [address] [phone] October, Bipolar 1 disorder, mixed F3 1.60 [place] [address] [address] October, Bipolar 1 disorder, mixed F3 1.60 [place] [address] [address] October, Bipolar 1 disorder, mixed F3 1.60 [place] [address] [address] October, Cervicalgia M54.2 and Bipola r 1 disorder, mixed F31.60 [place] [address] [address] October, Hypertension I10 ; Hyperlipi demia, unspecified hyperlipidemia type E78.5 and Family history of thyroid disease Z83.49 [place] [address] [address] October, [place] [address] [address] October, Hypertension I10 ; Hyperlipi demia, unspecified hyperlipidemia type E78.5 and Family history of thyroid problem Z83.49 [facility] [address] [place] [id number] [address] [place] [address] October, Bipolar 1 disorder, mixed F3 1.60 [facility] [address] [place] [id number] [address] [place] [address] Sep, Bipolar 1 disorder, mixed F3 1.60 [facility] [address] [place] [id number] [address] [place] [address] Sep, Bipolar 1 disorder, mixed F3 1.60 [place] [address] [place] [id number] [address] [place] [id number] Sep, Bipolar 1 disorder, mixed F3 1.60 [place] [address] [place] [id number] [place] [address] Sep, History of colon polyps Z86. 010 and Hematochezia K92.1 [place] [address] [place] [id number] [address] [place] [address] Sep, Major depressive disorder, r ecurrent episode, moderate F33.1 [place] [address] [place] [id number] [place] [address] Sep, Bipolar 1 disorder, mixed F3 1.60 [place] [id number] [place] [id number] [place] [address] Aug, Hot flashes due to menopause N95.1 [facility] [address] [place] [id number] [address] [place] [address] Aug, Bipolar 1 disorder, mixed F3 1.60 [facility] [address] [place] [id number] [address] [place] [address] Aug, [place] [address] [place] [id number] [address] [place] [phone] Aug, Bipolar 1 disorder, mixed F3 1.60 [facility] [address] [place] [id number] [address] [place] [address] Aug, Bipolar 1 disorder, mixed F3 1.60 [place] [address] [address] Aug, Hot flashes due to menopause N95.1 ; Cervicalgia M54.2 and Ataxia R27.0 [place] [address] [address] Jul, Bipolar 1 disorder, mixed F3 1.60 [place] [address] Jul, Bipolar 1 disorder, mixed F3 1.60 [place] [address] Jul, Bipolar 1 disorder, mixed F3 1.60 [place] [address] Jul, Bipolar 1 disorder, mixed F3 1.60 [place] [address] [address] Jul, Bipolar 1 disorder, mixed F3 1.60 [place] [address] [address] Jul, Cervicalgia M54.2 ; Tremor R 25.1 ; Hearing abnormally acute, unspecified laterality H93.239 ; Alopecia L65.9 ; Encounter for immunization Z23 and Family history of thyroid disease Z83.49 [place] [address] [address] Jul, Bipolar 1 disorder, mixed F3 1.60 [place] [address] [address] Jun, [place] [address] Jun, Hearing disorder, unspecifie d laterality H93.299 [place] [address] [address] Jun, Bipolar 1 disorder, mixed F3 1.60 [facility] [address] [id number] [address] [place] [address] Jun, Bipolar 1 disorder, mixed F3 1.60 [facility] [address] [facility] [id number] [address] [place] [address] Jun, Allergic rhinitis J30.9 [facility] [address] [id number] [address] [place] [address] Jun, Bipolar 1 disorder, mixed F3 1.60 [facility] [address] [id number] [address] [place] [address] Jun, Bipolar 1 disorder, mixed F3 1.60 [facility] [address] [id number] [address] [place] [address] Jun, Allergic rhinitis J30.9 [facility] [address] [id number] [address] [place] [address] Jun, Allergic rhinitis J30.9 [facility] [address] [id number] [address] [place] [address] Jun, Bipolar 1 disorder, mixed F3 1.60 [facility] [address] [id number] [address] [place] [address] May, Bipolar 1 disorder, mixed F3 1.60 [facility] [address] [id number] [address] [place] [address] May, Bipolar 1 disorder, mixed F3 1.60 [facility] [address] [id number] [address] [place] [address] May, [facility] [address] [id number] [address] [place] [address] May, Bipolar 1 disorder, mixed F3 1.60 [facility] [address] [facility] [id number] [address] [place] [address] May, Bipolar 1 disorder, mixed F3 1.60 [facility] [address] [facility] [id number] [address] [place] [address] May, [facility] [address] [facility] [id number] [address] [place] [address] May, [facility] [address] [facility] [id number] [address] [place] [address] May, [facility] [address] [facility] [id number] [address] [place] [address] May, Abdominal pain, unspecified location R10.9 [facility] [address] [facility] [id number] [address] [place] [address] May, [facility] [address] [facility] [id number] [address] [place] [address] Apr, Hematuria R31.9 ; Ataxia R27 .0 and Hearing loss, unspecified laterality H91.90 [facility] [address] [facility] [id number] [address] [place] [address] Apr, Bipolar 1 disorder, mixed F3 1.60 [facility] [address] [facility] [id number] [address] [place] [address] Apr, Acute effusion of both middl e ears H65.193 [facility] [address] [facility] [id number] [address] [place] [address] Apr, Hematuria R31.9 and Pyelonep hritis N12 [facility] [address] [facility] [id number] [address] [place] [address] Apr, [facility] [address] [facility] [id number] [address] [place] [address] Mar, Bipolar 1 disorder, mixed F3 1.60 [facility] [address] [facility] [id number] [address] [place] [address] Mar, [facility] [address] [facility] [id number] [address] [place] [address] Mar, Bipolar 1 disorder, mixed F3 1.60 [facility] [address] [facility] [id number] [address] [place] [address] Mar, Bipolar 1 disorder, mixed F3 1.60 [place] [address] [place] [id number] [place] [id number] Mar, Encounter for immunization Z 23 and Gastritis without bleeding, unspecified chronicity, unspecified gastritis type K29.70 [place] [address] [place] [id number] [place] [address] Mar, Bipolar 1 disorder, mixed F3 1.60 and Grief F43.20 [place] [address] [facility] [id number] [address] [place] [address] Mar, Gastritis without bleeding, unspecified chronicity, unspecified gastritis type K29.70 [place] [address] [place] [id number] [place] [address] Mar, Bipolar 1 disorder, mixed F3 1.60 [place] [address] [place] [id number] [place] [address] Mar, Gastritis without bleeding, unspecified chronicity, unspecified gastritis type K29.70 [place] [address] [place] [id number] [place] [address] Mar, [place] [address] [place] [id number] [place] [id number] 27 Feb, 2016 Bipolar 1 disorder, mixed F3 1.60 [place] [address] [place] [id number] [place] [address] Feb, Bipolar 1 disorder, mixed F3 1.60 and Grief F43.20 [place] [address] [facility] [id number] [address] [place] [address] Feb, Gastritis without bleeding, unspecified chronicity, unspecified gastritis type K29.70 [facility] [address] [facility] [id number] [address] [place] [id number] 14 Feb, 2016 Bipolar 1 disorder, mixed F3 1.60 [facility] [address] [facility] [id number] [address] [place] [address] Feb, Gastroesophageal reflux dise ase, esophagitis presence not specified K21.9 [place] [address] Jan, Bipolar 1 disorder, mixed F3 1.60 [place] [address] Jan, Bipolar 1 disorder, mixed F3 1.60 and Unsteady gait R26.81 [place] [address] Jan, Bipolar 1 disorder, mixed F3 1.60 [place] [address] Jan, Bipolar 1 disorder, mixed F3 1.60 and 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.899 [place] [address] [place] [address] Jan, Bipolar 1 disorder, mixed F3 1.60 [place] [address] [address] Jan, Bipolar 1 disorder, mixed F3 1.60 [place] [address] Jan, Bipolar 1 disorder, mixed F3 1.60 ; Grief F43.20 and 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.899 [place] [address] [place] [address] Jan, Bipolar 1 disorder, mixed F3 1.60 [place] [address] [place] [address] Dec, [place] [address] [place] [address] Dec, Bipolar 1 disorder, mixed F3 1.60 ; Vitamin D deficiency, unspecified E55.9 ; H/O allergic rhinitis Z87.09 ; Other chronic pain G89.29 and Dorsalgia, unspecified M54.9 [facility] [address] [id number] [address] [place] [address] Dec, [facility] [address] [id number] [address] [place] [address] Dec, Bipolar 1 disorder, mixed F3 1.60 [facility] [address] [facility] [id number] [address] [place] [address] Dec, Major depressive disorder, r ecurrent episode, moderate F33.1 [place] [address] [facility] [id number] [address] [place] [address] Dec, Major depressive disorder, r ecurrent episode, moderate F33.1 [place] [address] [facility] [id number] [address] [place] [address] Nov, [place] [address] [facility] [id number] [address] [place] [address] Nov, Bipolar 1 disorder, mixed F3 1.60 [place] [id number] [facility] [id number] [address] [place] [address] Nov, Major depressive disorder, r ecurrent episode, moderate F33.1 [place] [address] [facility] [id number] [address] [place] [address] Nov, Cervicalgia M54.2 ; Arthralg ia of hip, unspecified laterality M25.559 ; Allergic rhinitis J30.9 and Hormone replacement therapy Z79.890 [facility] [address] [facility] [id number] [address] [place] [address] Nov, Other seasonal allergic rhin itis J30.2 [facility] [address] [facility] [id number] [address] [place] [address] October, Major depressive disorder, r ecurrent episode, moderate F33.1 [facility] [address] [facility] [id number] [address] [place] [address] October, Major depressive disorder, r ecurrent episode, moderate F33.1 and Arthralgia of hip, unspecified laterality M25.559 [facility] [address] [facility] [id number] [address] [place] [address] October, Grief F43.20 ; Hypertension I10 ; Hyperlipidemia, unspecified hyperlipidemia type E78.5 ; Other chronic pain G89.29 and Allergic rhinitis, unspecified allergic rhinitis type J30.9 [place] [address] [facility] [id number] [address] [place] [address] October, Major depressive disorder, r ecurrent episode, moderate F33.1 [place] [address] [facility] [id number] [address] [place] [address] Sep, Major depressive disorder, r ecurrent episode, moderate F33.1 [place] [address] [facility] [id number] [address] [place] [address] Sep, [place] [address] [place] [id number] [place] [address] Sep, Major depressive disorder, r ecurrent episode, moderate F33.1 [place] [address] [facility] [id number] [address] [place] [address] Sep, Grief F43.20 [place] [address] [place] [id number] [place] [address] Aug, Major depressive disorder, r ecurrent episode, moderate F33.1 [place] [address] [facility] [id number] [address] [place] [address] Aug, Bipolar 1 disorder, mixed F3 1.60 [place] [address] [facility] [id number] [address] [place] [address] Aug, Allergic rhinitis J30.9 ; Ce rvicalgia M54.2 and Low back pain M54.5 [facility] [address] [facility] [id number] [address] [place] [address] Aug, Major depressive disorder, r ecurrent episode, moderate F33.1 [facility] [address] [facility] [id number] [address] [place] [address] Aug, Sinusitis J32.9 and Tobacco 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 [facility] [address] [facility] [id number] [address] [place] [address] Aug, [facility] [address] [facility] [id number] [address] [place] [address] Aug, Depressive disorder, not els ewhere classified F32.9 ; Hormone replacement therapy Z79.[address] scan, head R93.0 [facility] [address] [facility] [id number] [address] [place] [address] Aug, Major depressive disorder, r ecurrent episode, moderate F33.1 [facility] [address] [place] [id number] [place] [address] Jul, Major depressive disorder, r ecurrent episode, moderate F33.1 [facility] [address] [place] [id number] [place] [address] Jul, Abdominal pain R10.9 and Hyp ertension I10 [facility] [address] [facility] [id number] [address] [place] [phone] 08 Jul, 2015 [facility] [address] [place] [id number] [place] [id number] 05 Jul, 2015 Major depressive disorder, r ecurrent episode, moderate F33.1 [facility] [address] [place] [id number] [place] [address] Jul, [facility] [address] [facility] [id number] [address] [place] [address] Jul, [facility] [address] [place] [id number] [place] [address] Jun, [facility] [address] [facility] [id number] [address] [place] [address] Jun, Depressive disorder, not els ewhere classified F32.9 [facility] [address] [place] [id number] [place] [address] Jun, [facility] [address] [id number] [address] [place] [address] Jun, [facility] [address] [facility] [id number] [address] [place] [address] Jun, Arthralgia of hip, unspecifi ed laterality M25.559 ; Bruising, spontaneous R23.3 and Night sweats R61 [facility] [address] [id number] [address] [place] [address] Jun, [facility] [address] [id number] [address] [place] [address] Jun, [facility] [address] [facility] [id number] [address] [place] [address] May, [facility] [address] [place] [id number] [place] [address] May, Myalgia M79.1 and Screening, lipid Z13.220 [facility] [address] [facility] [id number] [address] [place] [address] Apr, Status post cervical spinal fusion Z98.1 ; Fibromyalgia M79.7 and Unsteady gait R26.81 [facility] [address] [facility] [id number] [address] [place] [address] Nov, [facility] [address] [facility] [id number] [address] [place] [address] Nov, [facility] [address] [id number] [address] [place] [address] October, [facility] [address] [facility] [id number] [address] [place] [phone] October, [facility] [address] [facility] [id number] [address] [place] [address] October, [facility] [address] [facility] [id number] [address] [place] [address] October, [facility] [address] [id number] [address] [place] [address] October, [facility] [address] [id number] [address] [place] [address] October, Dysuria 788.1 ; Nausea 787.0 2 and Urinary tract infection 599.0 [facility] [address] [id number] [address] [place] [address], [place] [address] Sep, [facility] [address] [id number] [address] [place] [address] Sep, [facility] [address] [id number] [address] [place] [address], [place] [id number] Aug, [facility] [address] [id number] [address] [place] [address] Aug, [facility] [address] [id number] [address] [place] [address], [place] [address] Aug, [facility] [address] [id number] [address] [place] [address] Aug, [facility] [address] [id number] [address] [place] [address], [place] [id number] Aug, [facility] [address] [id number] [address] [place] [phone] Aug, [facility] [address] [id number] [address] [place] [address], [place] [id number] Aug, [facility] [address] [id number] [address] [place] [phone] Aug, [facility] [address] [id number] [address] [place] [phone] Aug, [facility] [address] [id number] [address] [place] [phone] Aug, [facility] [address] [id number] [address] [place] [phone] Aug, [facility] [address] [id number] [address] [place] [address], [place] [id number] 13 Aug, 2014 [facility] [address] [id number] [address] [place] [address], [place] [id number] 13 Aug, 2014 [facility] [address] [id number] [address] [place] [address], [place] [id number] Aug, [facility] [address] [id number] [address] [place] [address], [place] [id number] Aug, [facility] [address] [id number] [address] [place] [address], [place] [id number] Aug, [facility] [address] [id number] [address] [place] [address], [place] [id number] Aug, [facility] [address] [id number] [address] [place] [address], [place] [id number] Aug, [facility] [address] [id number] [address] [place] [address], [place] [id number] 05 Aug, 2014 [facility] [address] [id number] [address] [place] [address], [place] [id number] Aug, [facility] [address] [id number] [address] [place] [address], [place] [id number] Aug, [facility] [address] [id number] [address] [place] [address], [place] [id number] Aug, [facility] [address] [id number] [address] [place] [address], [place] [id number] Jul, [facility] [address] [id number] [address] [place] [address], [place] [id number] Jul, [facility] [address] [id number] [address] [place] [address], [place] [id number] Jul, [facility] [address] [id number] [address] [place] [address], [place] [id number] Jul, [facility] [address] [id number] [address] [place] [address], [place] [id number] Jul, 2014 [facility] [address] [id number] [address] [place] [address], [place] [id number] Jul, 2014 [facility] [address] [id number] [address] [place] [address], [place] [id number] Jul, 2014 [facility] [address] [id number] [address] [place] [address], [place] [id number] Jul, 2014 [facility] [address] [id number] [address] [place] [address], [place] [id number] Jul, 2014 [facility] [address] [id number] [address] [place] [address], [place] [id number] Jul, 2014 [facility] [address] [id number] [address] [place] [address], [place] [id number] Jul, 2014 [facility] [address] [id number] [address] [place] [address], [place] [id number] Jul, 2014 [facility] [address] [id number] [address] [place] [address], [place] [id number] Jul, [facility] [address] [id number] [address] [place] [address], [place] [id number] Jul, [facility] [address] [id number] [address] [place] [address], [place] [id number] Jun, [facility] [address] [id number] [address] [place] [address], [place] [id number] Jun, [facility] [address] [id number] [address] [place] [address], [place] [id number] Jun, [facility] [address] [id number] [address] [place] [address], [place] [id number] Jun, [facility] [address] [id number] [address] [place] [address], [place] [id number] Jun, [facility] [address] [id number] [address] [place] [address] [address] Jun, [facility] [address] [id number] [address] [place] [address], [place] [id number] May, [facility] [address] [id number] [address] [place] [address], [place] [id number] May, [facility] [address] [id number] [address] [place] [address], [place] [id number] May, [facility] [address] [id number] [address] [place] [address], [place] [id number] May, [facility] [address] [id number] [address] [place] [address], [place] [id number] May, [facility] [address] [id number] [address] [place] [address], [place] [id number] May, [facility] [address] [id number] [address] [place] [address], [place] [id number] Apr, [facility] [address] [id number] [address] [place] [address], [place] [id number] Apr, [facility] [address] [id number] [address] [place] [address], [place] [id number] Apr, [facility] [address] [id number] [address] [place] [address], [place] [id number] Apr, [facility] [address] [id number] [address] [place] [address], [place] [id number] Apr, [facility] [address] [id number] [address] [place] [address], [place] [id number] Apr, [facility] [address] [id number] [address] [place] [address], [place] [id number] Mar, [facility] [address] [id number] [address] [place] [address], [place] [id number] Mar, [facility] [address] [id number] [address] [place] [address], [place] [id number] Mar, [facility] [address] [id number] [address] [place] [address], [place] [id number] 09 Mar, 2013 [facility] [address] [id number] [address] [place] [address], [place] [id number] Mar, 2013 [facility] [address] [id number] [address] [place] [address], [place] [id number] Mar, 2013 [facility] [address] [id number] [address] [place] [address], [place] [id number] Mar, 2013 [facility] [address] [id number] [address] [place] [address], [place] [id number] Mar, 2013 [facility] [address] [id number] [address] [place] [address], [place] [id number] Mar, 2013 [facility] [address] [id number] [address] [place] [address], [place] [id number] Mar, 2013 [facility] [address] [id number] [address] [place] [address], [place] [id number] Mar, 2013 [facility] [address] [id number] [address] [place] [address], [place] [id number] Mar, 2013 [facility] [address] [id number] [address] [place] [address], [place] [id number] 30 Sep, 2013 [facility] [address] [id number] [address] [place] [address], [place] [id number] 29 Sep, 2013 [facility] [address] [id number] [address] [place] [address], [place] [id number] 29 Sep, 2013 [facility] [address] [id number] [address] [place] [address], [place] [id number] 23 Sep, 2013 [facility] [address] [id number] [address] [place] [address], [place] [id number] 23 Sep, 2013 [facility] [address] [id number] [address] [place] [address], [place] [id number] 08 Sep, 2013 [facility] [address] [id number] [address] [place] [address], [place] [id number] Feb, [facility] [address] [id number] [address] [place] [address], [place] [id number] Jan, [facility] [address] [id number] [address] [place] [address], [place] [id number] Jan, [facility] [address] [id number] [address] [place] [address], [place] [id number] Jan, [facility] [address] [id number] [address] [place] [address], [place] [id number] Dec, [facility] [address] [id number] [address] [place] [address], [place] [id number] Dec, [facility] [address] [id number] [address] [place] [address], [place] [id number] Dec, [facility] [address] [id number] [address] [place] [address], [place] [id number] Dec, [facility] [address] [id number] [address] [place] [address], [place] [id number] Sep, [facility] [address] [id number] [address] [place] [address], [place] [id number] Sep, [facility] [address] [id number] [address] [place] [address], [place] [id number] Sep, [facility] [address] [id number] [address] [place] [address], [place] [id number] Sep, [facility] [address] [id number] [address] [place] [address], [place] [id number] Sep, [facility] [address] [id number] [address] [place] [address], [place] [id number] Sep, [facility] [address] [id number] [address] [place] [address], [place] [id number] Sep, [facility] [address] [id number] [address] [place] [address], [place] [id number] Sep, [facility] [address] [id number] [address] [place] [address], [place] [id number] 10 Aug, 2013 [facility] [address] [id number] [address] [place] [address], [place] [id number] Aug, [facility] [address] [id number] [address] [place] [address], [place] [id number] May, [facility] [address] [id number] [address] [place] [address], [place] [address] May, [facility] [address] [id number] [address] [place] [address], [place] [id number] Apr, [facility] [address] [id number] [address] [place] [address], [place] [id number] Apr, [facility] [address] [id number] [address] [place] [address], [place] [id number] Apr, [facility] [address] [id number] [address] [place] [address], [place] [id number] Apr, [facility] [address] [id number] [address] [place] [address], [place] [id number] Apr, [facility] [address] [id number] [address] [place] [address], [place] [id number] Apr, [facility] [address] [id number] [address] [place] [address], [place] [address] May, [facility] [address] [id number] [address] [place] [address], [place] [id number] 18 May, 2012 [facility] [address] [id number] [address] [place] [address], [place] [id number] 15 May, 2012 [facility] [address] [id number] [address] [place] [address], [place] [id number] 15 May, 2012 [facility] [address] [id number] [address] [place] [address], [place] [id number] 13 May, 2012 [facility] [address] [id number] [address] [place] [address], [place] [id number] 13 May, 2012 [facility] [address] [id number] [address] [place] [address], [place] [id number] 13 Apr, 2012 [facility] [address] [id number] [address] [place] [address], [place] [id number] 13 Apr, 2012 [facility] [address] [id number] [address] [place] [address], [place] [id number] 08 Apr, 2012 [facility] [address] [id number] [address] [place] [address], [place] [id number] Apr, [facility] [address] [id number] [address] [place] [address], [place] [id number] 08 Apr, 2012 [facility] [address] [id number] [address] [place] [address], [place] [id number] Apr, [facility] [address] [id number] [address] [place] [address], [place] [id number] Apr, [facility] [address] [id number] [address] [place] [address], [place] [id number] Apr, [facility] [address] [id number] [address] [place] [address], [place] [id number] Apr, [facility] [address] [id number] [address] [place] [address], [place] [id number] Apr, [facility] [address] [id number] [address] [place] [address], [place] [id number] Mar, [facility] [address] [id number] [address] [place] [address], [place] [id number] Mar, [facility] [address] [id number] [address] [place] [address], [place] [id number] Mar, [facility] [address] [id number] [address] [place] [address], [place] [id number] Mar, [facility] [address] [id number] [address] [place] [address], [place] [id number] Mar, [facility] [address] [id number] [address] [place] [address], [place] [id number] Mar, [facility] [address] [id number] [address] [place] [address], [place] [id number] Mar, [facility] [address] [id number] [address] [place] [address], [place] [id number] Mar, [facility] [address] [id number] [address] [place] [address], [place] [id number] Mar, [facility] [address] [id number] [address] [place] [address], [place] [id number] 25 Feb, 2012 [facility] [address] [id number] [address] [place] [address], [place] [id number] 16 Feb, 2012 [facility] [address] [id number] [address] [place] [address], [place] [id number] Feb, [facility] [address] [id number] [address] [place] [address], [place] [id number] Jan, [facility] [address] [id number] [address] [place] [address], [place] [address] Jan, [facility] [address] [id number] [address] [place] [address], [place] [id number] Jan, [facility] [address] [id number] [address] [place] [address], [place] [id number] Jan, [facility] [address] [id number] [address] [place] [address], [place] [id number] Jan, [facility] [address] [id number] [address] [place] [address], [place] [id number] Jan, [facility] [address] [id number] [address] [place] [address], [place] [id number] 16 Jan, 2012 [facility] [address] [id number] [address] [place] [address], [place] [id number] Jan, [facility] [address] [id number] [address] [place] [address], [place] [id number] Jan, [facility] [address] [id number] [address] [place] [id number] Jan, [facility] [address] [id number] [address] [place] [address], [place] [id number] Dec, [facility] [address] [id number] [address] [place] [address], [place] [id number] Dec, [facility] [address] [id number] [address] [place] [address], [place] [id number] Dec, [facility] [address] [id number] [address] [place] [address], [place] [id number] Dec, [facility] [address] [id number] [address] [place] [address], [place] [id number] Nov, [facility] [address] [id number] [address] [place] [address], [place] [address] Nov, [facility] [address] [id number] [address] [place] [address], [place] [id number] Nov, [facility] [address] [id number] [address] [place] [address], [place] [id number] October, [facility] [address] [id number] [address] [place] [address], [place] [id number] October, [facility] [address] [id number] [address] [place] [address], [place] [id number] October, [facility] [address] [id number] [address] [place] [address], [place] [id number] October, [facility] [address] [id number] [address] [place] [address], [place] [id number] October, [facility] [address] [id number] [address] [place] [address], [place] [id number] October, [facility] [address] [id number] [address] [place] [address], [place] [id number] Aug, [facility] [address] [id number] [address] [place] [address], [place] [id number] Mar, [facility] [address] [facility] [id number] [address] [place] [id number] 16 Nov, 2010 [facility] [address] [facility] [id number] [address] [place] [id number] May, [facility] [address] [facility] [id number] [address] [place] [id number] May, [facility] [address] [facility] [id number] [address] [place] [id number] Apr, [facility] [address] [facility] [id number] [address] [place] [id number] Mar, [facility] [address] [facility] [id number] [address] [place] [id number] Mar, IMMUNIZATIONS No Known Immunizations SOCIAL HISTORY Never Assessed REASON FOR VISIT EMR-[facility] PLAN OF CARE VITAL SIGNS MEDICATIONS Unknown [...]
--- OUTSIDE RECORDS SUMMARY | 2019-06-19 05:24 | XMS REPORT ---
Author Author Sydnie Huston Doctor Organization [facility] Address Unknown Phone Unavailable Care Team Providers Care Sheet Rocker Name Role Phone Migration, Doctor Unavailable Unavailable PROBLEMS Type Condition ICD9-CM Code GES70-AU Code Onset Dates Condition S tatus SNOMED Code Problem Hormone replacement therapy Z79.890 Ac tive 652045941 Problem Sensorineural hearing loss (SNHL) of both ears H90 .3 Active 324679547 Problem Abnormal CT scan, head R93.0 Active 683979231 Problem Arthralgia of hip, unspecified laterality M25.559 Active 39535132 Problem Bruising, spontaneous R23.3 Active 484883689 Problem Hypertension I10 Active 7634003 3 Problem Night sweats R61 Active 3841457 0 Problem Hammer toe of right foot M20.41 Activ e 997520605 Problem Hematuria, unspecified type R31.9 Ac tive 03881924 Problem Bipolar 1 disorder, mixed F31.60 Acti ve 32082223 Problem Gastritis without bleeding, unspecified chronicity, unspecified gastritis type K29.70 Active 445441926 Problem Hearing loss, unspecified laterality H91.90 Active 09089442 Problem Ataxia R27.0 Active 64993595 Problem Hot flashes due to menopause N95.1 A ctive 884223094 Problem Allergic rhinitis J30.9 Active 61 759080 Problem Generalized anxiety disorder F41.1 A ctive 25676324 Problem History of colon polyps Z86.010 Active 692636530 Problem Imbalance R26.89 Active 562820305 Problem Major depressive disorder, recurrent episode, moderate F33.1 Active 132392114 Problem Fibromyalgia M79.7 Active 5249070 7 Problem Slow transit constipation K59.01 Acti ve 26512248 Problem Grief F43.20 Active 64655920 Problem Tobacco use disorder F17.200 Active 420033171 Problem Hyperlipidemia, unspecified hyperlipidemia type E7 8.5 Active 26786370 Problem Other chronic pain G89.29 Active 8 0161503 Problem Bladder spasm N32.89 Active 215093 006 Problem Acute left-sided low back pain with left-sided sciatica M54.42 Active 848756411 Problem Sciatica of left side M54.32 Active 31408118 Problem Plantar wart of right foot B07.0 Act mitchell [id number] ALLERGIES No Information ENCOUNTERS Encounter Location Date Diagnosis [facility] [address] [id number] [address] [place] [address] Sep, [facility] [address] [id number] [address] [place] [address] Sep, [facility] [address] [id number] [address] [place] [address] Sep, [facility] [address] [id number] [address] [place] [address] Sep, [facility] [address] [place] [id number] [address] [place] [address] Sep, [facility] [address] [facility] [id number] [address] [place] [address] Sep, [facility] [address] [facility] [id number] [address] [place] [address] Aug, [facility] [address] [place] [id number] [address] [place] [address] Aug, [facility] [address] [place] [id number] [address] [place] [address] Aug, Exercise counseling Z71.82 [facility] [address] [place] [id number] [address] [place] [address] Aug, Bipolar 1 disorder, mixed F3 1.60 [facility] [address] [facility] [id number] [address] [place] [address] Aug, Gastritis without bleeding, unspecified chronicity, unspecified gastritis type K29.70 ; Tobacco abuse Z72.0 ; Generalized anxiety disorder F41.1 and Weight gain R63.5 [facility] [address] [place] [id number] [address] [place] [address] Aug, Bipolar 1 disorder, mixed F3 1.60 ; Generalized anxiety disorder F41.1 and Tobacco use disorder F17.200 [facility] [address] [facility] [id number] [address] [place] [address] Jul, Bipolar 1 disorder, mixed F3 1.60 [facility] [address] [facility] [id number] [address] [place] [address] Jul, [facility] [address] [facility] [id number] [address] [place] [address] Jul, Bipolar 1 disorder, mixed F3 1.60 [facility] [address] [facility] [id number] [address] [place] [address] Jul, Allergic rhinitis J30.9 ; Ma darion depressive disorder, recurrent episode, moderate F33.1 and Tobacco 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 [facility] [address] [place] [id number] [address] [place] [address] Jun, [facility] [address] [facility] [id number] [address] [place] [address] Jun, [facility] [address] [facility] [id number] [address] [place] [address] Jun, Bipolar 1 disorder, mixed F3 1.60 [facility] [address] [facility] [id number] [address] [place] [address] Jun, Bipolar 1 disorder, mixed F3 1.60 [facility] [address] [facility] [id number] [address] [place] [address] Jun, Bipolar 1 disorder, mixed F3 1.60 [facility] [address] [facility] [id number] [address] [place] [address] Jun, Generalized anxiety disorder F41.1 ; Tobacco abuse Z72.0 and Major depressive disorder, recurrent episode, moderate F33.1 [facility] [address] [facility] [id number] [address] [place] [address] May, Bipolar 1 disorder, mixed F3 1.60 [facility] [address] [place] [id number] [address] [place] [address] May, Bipolar 1 disorder, mixed F3 1.60 and Generalized anxiety disorder F41.1 [facility] [address] [facility] [id number] [address] [place] [address] May, Bipolar 1 disorder, mixed F3 1.60 [facility] [address] [facility] [id number] [address] [place] [address] May, Allergic rhinitis J30.9 [facility] [address] [facility] [id number] [address] [place] [address] May, Bipolar 1 disorder, mixed F3 1.60 [place] [address] [place] [id number] [address] [place] [address] May, [place] [address] [place] [id number] [address] [place] [address] Apr, Allergic rhinitis J30.9 ; Dy sfunction of both eustachian tubes H69.83 ; History of bladder surgery Z98.890 and Cervicalgia M54.2 [place] [address] [place] [id number] [address] [place] [address] Mar, Bipolar 1 disorder, mixed F3 1.60 [place] [address] [place] [id number] [address] [place] [address] Mar, [place] [address] [place] [id number] [address] [place] [address] Mar, Slow transit constipation K5 9.01 ; Encounter for immunization Z23 and Generalized anxiety disorder F41.1 [facility] [address] [facility] [id number] [address] [place] [address] Feb, Bipolar 1 disorder, mixed F3 1.60 [facility] [address] [facility] [id number] [address] [place] [address] Feb, Allergic rhinitis J30.9 [facility] [address] [facility] [id number] [address] [place] [address] Feb, Bipolar 1 disorder, mixed F3 1.60 [facility] [address] [facility] [id number] [address] [place] [address] Feb, Bipolar 1 disorder, mixed F3 1.60 and Generalized anxiety disorder F41.1 [facility] [address] [facility] [id number] [address] [place] [address] 13 Feb, 2018 Bipolar 1 disorder, mixed F3 1.60 [facility] [address] [facility] [id number] [address] [place] [address] Feb, Allergic rhinitis J30.9 [facility] [address] [facility] [id number] [address] [place] [address] 05 Feb, 2018 [facility] [address] [facility] [id number] [address] [place] [address] Jan, Bipolar 1 disorder, mixed F3 1.60 [facility] [address] [place] [id number] [address] [place] [address] Jan, Low back pain M54.5 ; Hyperl ipidemia, unspecified hyperlipidemia type E78.5 and Bipolar 1 disorder, mixed F31.60 [facility] [address] [facility] [id number] [address] [place] [address] Jan, Bipolar 1 disorder, mixed F3 1.60 [facility] [address] [place] [id number] [address] [place] [address] Jan, Bipolar 1 disorder, mixed F3 1.60 [facility] [address] [place] [id number] [address] [place] [address] Jan, Bipolar 1 disorder, mixed F3 1.60 [facility] [address] [facility] [id number] [address] [place] [address] Jan, Bipolar 1 disorder, mixed F3 1.60 [facility] [address] [facility] [id number] [address] [place] [address] Dec, Bipolar 1 disorder, mixed F3 1.60 ; Generalized anxiety disorder F41.1 and 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 [facility] [address] [facility] [id number] [address] [place] [address] Dec, Other residential (current) dr bin feliz Z79.899 [facility] [address] [facility] [id number] [address] [place] [address] Dec, Bipolar 1 disorder, mixed F3 1.60 [facility] [address] [facility] [id number] [address] [place] [address] Dec, Bipolar 1 disorder, mixed F3 1.60 [facility] [address] [facility] [id number] [address] [place] [address] Nov, Bipolar 1 disorder, mixed F3 1.60 [facility] [address] [facility] [id number] [address] [place] [address] Nov, Bipolar 1 disorder, mixed F3 1.60 [facility] [address] [facility] [id number] [address] [place] [address] Nov, Bipolar 1 disorder, mixed F3 1.60 [facility] [address] [facility] [id number] [address] [place] [address] Nov, Allergic rhinitis J30.9 [facility] [address] [facility] [id number] [address] [place] [address] Nov, Allergic rhinitis J30.9 [facility] [address] [facility] [id number] [address] [place] [address] Nov, [facility] [address] [facility] [id number] [address] [place] [address] Nov, Bipolar 1 disorder, mixed F3 1.60 [facility] [address] [facility] [id number] [address] [place] [address] Nov, Fibromyalgia M79.7 and Aller gic rhinitis J30.9 [facility] [address] [facility] [id number] [address] [place] [address] October, Bipolar 1 disorder, mixed F3 1.60 [facility] [address] [facility] [id number] [address] [place] [address] October, Acute nasopharyngitis J00 [facility] [address] [facility] [id number] [address] [place] [address] October, Bitten or stung by nonvenomo us insect and other nonvenomous arthropods, initial encounter W57.XXXA and Insect bite (nonvenomous) of abdominal wall, initial encounter S30.861A [facility] [address] [facility] [id number] [address] [place] [address] October, Insect bite (nonvenomous) of abdominal wall, initial encounter S30.861A ; Bitten or stung by nonvenomous insect and other nonvenomous arthropods, initial encounter W57.XXXA ; Allergic rhinitis J30.9 and Low back pain M54.5 [facility] [address] [facility] [id number] [address] [place] [address] October, Bipolar 1 disorder, mixed F3 1.60 [facility] [address] [facility] [id number] [address] [place] [address] October, [facility] [address] [place] [id number] [address] [place] [address] October, [facility] [address] [facility] [id number] [address] [place] [address] October, Bipolar 1 disorder, mixed F3 1.60 [facility] [address] [place] [id number] [address] [place] [address] Sep, Bipolar 1 disorder, mixed F3 1.60 [facility] [address] [facility] [id number] [address] [place] [address] Sep, Other chronic pain G89.29 [facility] [address] [facility] [id number] [address] [place] [address] Sep, [facility] [address] [facility] [id number] [address] [place] [address] Sep, Bipolar 1 disorder, mixed F3 1.60 [facility] [address] [id number] [address] [place] [address] Sep, Allergic rhinitis J30.9 and Sciatica of left side M54.32 [facility] [address] [facility] [id number] [address] [place] [address] Sep, Bipolar 1 disorder, mixed F3 1.60 [facility] [address] [facility] [id number] [address] [place] [address] Sep, Bipolar 1 disorder, mixed F3 1.60 and Generalized anxiety disorder F41.1 [facility] [address] [id number] [address] [place] [address] Aug, [facility] [address] [facility] [id number] [address] [place] [address] Aug, Bipolar 1 disorder, mixed F3 1.60 [facility] [address] [place] [id number] [address] [place] [address] Aug, Bipolar 1 disorder, mixed F3 1.60 [facility] [address] [facility] [id number] [address] [place] [address] Aug, [facility] [address] [facility] [id number] [address] [place] [address] Aug, Generalized anxiety disorder F41.1 [facility] [address] [place] [id number] [address] [place] [address] Aug, Bipolar 1 disorder, mixed F3 1.60 [facility] [address] [facility] [id number] [address] [place] [address] Aug, Plantar wart of right foot B 07.0 [facility] [address] [facility] [id number] [address] [place] [address] Aug, Bipolar 1 disorder, mixed F3 1.60 [facility] [address] [place] [id number] [address] [place] [address] Jul, Bipolar 1 disorder, mixed F3 1.60 [facility] [address] [place] [id number] [address] [place] [address] Jul, [facility] [address] [facility] [id number] [address] [place] [address] 14 Jul, 2017 Bipolar 1 disorder, mixed F3 1.60 [facility] [address] [place] [id number] [address] [place] [address] Jul, Generalized anxiety disorder F41.1 [facility] [address] [place] [id number] [address] [place] [address] Jul, Bipolar 1 disorder, mixed F3 1.60 [place] [id number] [place] [address] Jul, Acute left-sided low back pa in with left-sided sciatica M54.42 [place] [address] [place] [id number] [address] [place] [address] Jul, Coccydynia M53.3 [facility] [address] [place] [id number] [address] [place] [address] Jun, Bipolar 1 disorder, mixed F3 1.60 [facility] [address] [place] [id number] [address] [place] [address] Jun, Acute nasopharyngitis J00 [facility] [address] [place] [id number] [address] [place] [address] Jun, Bipolar 1 disorder, mixed F3 1.60 [facility] [address] [place] [id number] [address] [place] [address] Jun, Fibromyalgia M79.7 [facility] [address] [facility] [id number] [address] [place] [address] Jun, Bipolar 1 disorder, mixed F3 1.60 [facility] [address] [place] [id number] [address] [place] [address] Jun, Fibromyalgia M79.7 and Bipol ar 1 disorder, mixed F31.60 [facility] [address] [address] 27 May, 2017 Bipolar 1 disorder, mixed F3 1.60 ; Generalized anxiety disorder F41.1 and 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 [place] [id number] [address] May, Bipolar 1 disorder, mixed F3 1.60 [facility] [address] [address] 14 May, 2017 Cough R05 and Body aches R52 [facility] [address] [address] 10 May, 2017 Bladder spasm N32.89 [address] Acu te cystitis without hematuria N30.00 [place] [address] [address] 07 May, 2017 Bipolar 1 disorder, mixed F3 1.60 [place] [address] [address] 30 Apr, 2017 [place] [address] [address] Apr, Major depressive disorder, r ecurrent episode, moderate F33.1 and Encounter for immunization Z23 [place] [address] [address] Apr, Bipolar 1 disorder, mixed F3 1.60 [place] [address] [address] Apr, Bipolar 1 disorder, mixed F3 1.60 [place] [address] [address] 16 Apr, 2017 Bipolar 1 disorder, mixed F3 1.60 [place] [address] [address] 13 Apr, 2017 Yeast vaginitis B37.3 [place] [address] [address] Apr, Bipolar 1 disorder, mixed F3 1.60 [facility] [address] [place] [id number] [address] [place] [address] Apr, Cellulitis L03.[address] for immunization Z23 [facility] [address] [place] [id number] [address] [place] [address] Apr, Bipolar 1 disorder, mixed F3 1.60 [facility] [address] [place] [id number] [address] [place] [address] Mar, Bipolar 1 disorder, mixed F3 1.60 [facility] [address] [address] Mar, Bipolar 1 disorder, mixed F3 1.60 [facility] [address] [address] Mar, Imbalance R26.89 [address] Encount er for immunization Z23 [facility] [address] [place] [id number] [address] [place] [address] Mar, Generalized anxiety disorder F41.1 [facility] [address] [address] Mar, Bipolar 1 disorder, mixed F3 1.60 [facility] [address] [place] [id number] [address] [place] [address] Mar, Generalized anxiety disorder F41.1 [facility] [address] [place] [id number] [address] [place] [address] Mar, Bipolar 1 disorder, mixed F3 1.60 [facility] [address] [place] [id number] [address] [place] [address] Mar, Bipolar 1 disorder, mixed F3 1.60 [facility] [address] [place] [id number] [address] [place], [place] [id number] Feb, Bipolar 1 disorder, mixed F3 1.60 [facility] [address] [place] [id number] [address] [place] [address] Feb, Bipolar 1 disorder, mixed F3 1.60 and Generalized anxiety disorder F41.1 [facility] [address] [place] [id number] [address] [place] [address] Feb, Gastritis without bleeding, unspecified chronicity, unspecified gastritis type K29.70 ; Hammer toe of right foot M20.41 and Other viral warts B07.8 [facility] [address] [place] [id number] [address] [place] [address] Feb, Bipolar 1 disorder, mixed F3 1.60 [place] [address] [place] [id number] [address] [place] [address] Feb, Bipolar 1 disorder, mixed F3 1.60 [place] [address] [place] [id number] [place] [address] Feb, Bipolar 1 disorder, mixed F3 1.60 [place] [address] [address] Jan, Encounter for screening mamm ogram for breast cancer Z12.31 ; Other viral warts B07.8 and Allergic rhinitis J30.9 [place] [address] [place] [id number] [place] [address] Jan, Bipolar 1 disorder, mixed F3 1.60 [place] [address] [place] [id number] [address] [place] [address] Jan, Bipolar 1 disorder, mixed F3 1.60 [place] [address] [place] [id number] [address] [place] [address] Jan, [facility] [address] [place] [id number] [address] [place] [address] Jan, Bipolar 1 disorder, mixed F3 1.60 [place] [address] [place] [id number] [address] [place] [address] Jan, Bipolar 1 disorder, mixed F3 1.60 [place] [address] [place] [id number] [place] [id number] Jan, Allergic rhinitis J30.9 ; He maturia R31.9 and Colon cancer screening Z12.11 [facility] [address] [place] [place] [id number] [place] [id number] Dec, Bipolar 1 disorder, mixed F3 1.60 [facility] [address] [place] [id number] [place] [id number] Dec, Bipolar 1 disorder, mixed F3 1.60 ; Generalized anxiety disorder F41.1 and Other residential (current) drug therapy Z79.899 [place] [id number] [facility] [id number] [address] [place] [id number] Dec, Bipolar 1 disorder, mixed F3 1.60 [place] [address] [place] [id number] [place] [id number] Dec, Bipolar 1 disorder, mixed F3 1.60 [place] [address] [id number] Dec, Bipolar 1 disorder, mixed F3 1.60 [place] [address] [place] [id number] [place] [id number] Dec, Low back pain M54.5 and Recu rrent urinary tract infection N39.0 [place] [address] [place] [id number] [place] [phone] Nov, Bipolar 1 disorder, mixed F3 1.60 [place] [address] [place] [id number] [place] [phone] Nov, Bipolar 1 disorder, mixed F3 1.60 [place] [id number] [place] [id number] [place] [id number] Nov, Bipolar 1 disorder, mixed F3 1.60 [place] [address] [place] [id number] [place] [id number] Nov, Bipolar 1 disorder, mixed F3 1.60 [facility] [address] [place] [id number] [place] [id number] Nov, [place] [address] [place] [id number] [place] [phone] Nov, Anesthesia of skin R20.0 ; F requent UTI N39.0 ; Tobacco abuse Z72.0 and Colon cancer screening Z12.11 [place] [address] [place] [id number] [place] [id number] Nov, Bipolar 1 disorder, mixed F3 1.60 [place] [address] [address] October, Bipolar 1 disorder, mixed F3 1.60 [place] [address] October, Bipolar 1 disorder, mixed F3 1.60 [place] [address] [address] October, Bipolar 1 disorder, mixed F3 1.60 [place] [address] [address] October, Bipolar 1 disorder, mixed F3 1.60 [place] [address] [address] October, Bipolar 1 disorder, mixed F3 1.60 [place] [address] [address] October, Cervicalgia M54.2 and Bipola r 1 disorder, mixed F31.60 [place] [address] [address] October, Hypertension I10 ; Hyperlipi demia, unspecified hyperlipidemia type E78.5 and Family history of thyroid disease Z83.49 [place] [address] [address] October, [place] [address] [address] October, Hypertension I10 ; Hyperlipi demia, unspecified hyperlipidemia type E78.5 and Family history of thyroid problem Z83.49 [facility] [address] [place] [id number] [address] [place] [address] October, Bipolar 1 disorder, mixed F3 1.60 [facility] [address] [place] [id number] [address] [place] [address] Sep, Bipolar 1 disorder, mixed F3 1.60 [facility] [address] [place] [id number] [address] [place] [address] Sep, Bipolar 1 disorder, mixed F3 1.60 [place] [address] [place] [id number] [address] [place] [address] Sep, Bipolar 1 disorder, mixed F3 1.60 [place] [address] [place] [id number] [place] [address] Sep, History of colon polyps Z86. 010 and Hematochezia K92.1 [place] [address] [place] [id number] [address] [place] [address] Sep, Major depressive disorder, r ecurrent episode, moderate F33.1 [place] [address] [place] [id number] [address] [place] [address] Sep, Bipolar 1 disorder, mixed F3 1.60 [place] [id number] [place] [id number] [address] [place] [address] Aug, Hot flashes due to menopause N95.1 [facility] [address] [place] [id number] [address] [place] [address] Aug, Bipolar 1 disorder, mixed F3 1.60 [facility] [address] [place] [id number] [address] [place] [address] Aug, [place] [address] [place] [id number] [address] [place] [address] Aug, Bipolar 1 disorder, mixed F3 1.60 [facility] [address] [place] [id number] [address] [place] [address] Aug, Bipolar 1 disorder, mixed F3 1.60 [place] [address] [address] Aug, Hot flashes due to menopause N95.1 ; Cervicalgia M54.2 and Ataxia R27.0 [place] [address] [address] Jul, Bipolar 1 disorder, mixed F3 1.60 [place] [address] Jul, Bipolar 1 disorder, mixed F3 1.60 [place] [address] Jul, Bipolar 1 disorder, mixed F3 1.60 [place] [address] Jul, Bipolar 1 disorder, mixed F3 1.60 [place] [address] [address] Jul, Bipolar 1 disorder, mixed F3 1.60 [place] [address] [address] Jul, Cervicalgia M54.2 ; Tremor R 25.1 ; Hearing abnormally acute, unspecified laterality H93.239 ; Alopecia L65.9 ; Encounter for immunization Z23 and Family history of thyroid disease Z83.49 [place] [address] [address] Jul, Bipolar 1 disorder, mixed F3 1.60 [place] [address] [address] Jun, [place] [address] Jun, Hearing disorder, unspecifie d laterality H93.299 [place] [address] [address] Jun, Bipolar 1 disorder, mixed F3 1.60 [facility] [address] [id number] [address] [place] [address] Jun, Bipolar 1 disorder, mixed F3 1.60 [facility] [address] [facility] [id number] [address] [place] [address] Jun, Allergic rhinitis J30.9 [facility] [address] [id number] [address] [place] [address] Jun, Bipolar 1 disorder, mixed F3 1.60 [facility] [address] [id number] [address] [place] [address] Jun, Bipolar 1 disorder, mixed F3 1.60 [facility] [address] [id number] [address] [place] [address] Jun, Allergic rhinitis J30.9 [facility] [address] [id number] [address] [place] [address] Jun, Allergic rhinitis J30.9 [facility] [address] [id number] [address] [place] [address] Jun, Bipolar 1 disorder, mixed F3 1.60 [facility] [address] [id number] [address] [place] [address] May, Bipolar 1 disorder, mixed F3 1.60 [facility] [address] [id number] [address] [place] [address] May, Bipolar 1 disorder, mixed F3 1.60 [facility] [address] [id number] [address] [place] [address] May, [facility] [address] [id number] [address] [place] [address] May, Bipolar 1 disorder, mixed F3 1.60 [facility] [address] [facility] [id number] [address] [place] [address] May, Bipolar 1 disorder, mixed F3 1.60 [facility] [address] [facility] [id number] [address] [place] [address] May, [facility] [address] [facility] [id number] [address] [place] [address] May, [facility] [address] [facility] [id number] [address] [place] [address] May, [facility] [address] [facility] [id number] [address] [place] [address] May, Abdominal pain, unspecified location R10.9 [facility] [address] [facility] [id number] [address] [place] [address] May, [facility] [address] [facility] [id number] [address] [place] [address] Apr, Hematuria R31.9 ; Ataxia R27 .0 and Hearing loss, unspecified laterality H91.90 [facility] [address] [facility] [id number] [address] [place] [address] Apr, Bipolar 1 disorder, mixed F3 1.60 [facility] [address] [facility] [id number] [address] [place] [address] Apr, Acute effusion of both middl e ears H65.193 [facility] [address] [facility] [id number] [address] [place] [address] Apr, Hematuria R31.9 and Pyelonep hritis N12 [facility] [address] [facility] [id number] [address] [place] [address] Apr, [facility] [address] [facility] [id number] [address] [place] [address] Mar, Bipolar 1 disorder, mixed F3 1.60 [facility] [address] [facility] [id number] [address] [place] [address] Mar, [facility] [address] [facility] [id number] [address] [place] [address] Mar, Bipolar 1 disorder, mixed F3 1.60 [facility] [address] [facility] [id number] [address] [place] [address] Mar, Bipolar 1 disorder, mixed F3 1.60 [place] [address] [place] [id number] [place], [place] [id number] Mar, Encounter for immunization Z 23 and Gastritis without bleeding, unspecified chronicity, unspecified gastritis type K29.70 [place] [address] [place] [id number] [address] [place] [address] Mar, Bipolar 1 disorder, mixed F3 1.60 and Grief F43.20 [place] [address] [facility] [id number] [address] [place] [address] Mar, Gastritis without bleeding, unspecified chronicity, unspecified gastritis type K29.70 [place] [address] [place] [id number] [place] [address] Mar, Bipolar 1 disorder, mixed F3 1.60 [place] [address] [place] [id number] [address] [place] [address] Mar, Gastritis without bleeding, unspecified chronicity, unspecified gastritis type K29.70 [place] [address] [place] [id number] [address] [place] [address] Mar, [place] [address] [place] [id number] [address] [place] [address] 27 Feb, 2016 Bipolar 1 disorder, mixed F3 1.60 [place] [address] [place] [id number] [address] [place] [address] Feb, Bipolar 1 disorder, mixed F3 1.60 and Grief F43.20 [place] [address] [facility] [id number] [address] [place] [address] Feb, Gastritis without bleeding, unspecified chronicity, unspecified gastritis type K29.70 [facility] [address] [facility] [id number] [address] [place] [address] 14 Feb, 2016 Bipolar 1 disorder, mixed F3 1.60 [facility] [address] [facility] [id number] [address] [place] [address] Feb, Gastroesophageal reflux dise ase, esophagitis presence not specified K21.9 [place] [address] Jan, Bipolar 1 disorder, mixed F3 1.60 [place] [address] Jan, Bipolar 1 disorder, mixed F3 1.60 and Unsteady gait R26.81 [place] [address] Jan, Bipolar 1 disorder, mixed F3 1.60 [place] [address] Jan, Bipolar 1 disorder, mixed F3 1.60 and Other residential (current) drug therapy Z79.899 [place] [address] [place] [address] Jan, Bipolar 1 disorder, mixed F3 1.60 [place] [address] [address] Jan, Bipolar 1 disorder, mixed F3 1.60 [place] [address] Jan, Bipolar 1 disorder, mixed F3 1.60 ; Grief F43.20 and Other residential (current) drug therapy Z79.899 [place] [address] [place] [address] Jan, Bipolar 1 disorder, mixed F3 1.60 [place] [address] [place] [address] Dec, [place] [address] [place] [address] Dec, Bipolar 1 disorder, mixed F3 1.60 ; Vitamin D deficiency, unspecified E55.9 ; H/O allergic rhinitis Z87.09 ; Other chronic pain G89.29 and Dorsalgia, unspecified M54.9 [facility] [address] [id number] [address] [place] [address] Dec, [facility] [address] [id number] [address] [place] [address] Dec, Bipolar 1 disorder, mixed F3 1.60 [facility] [address] [facility] [id number] [address] [place] [address] Dec, Major depressive disorder, r ecurrent episode, moderate F33.1 [place] [address] [facility] [id number] [address] [place] [address] Dec, Major depressive disorder, r ecurrent episode, moderate F33.1 [place] [address] [facility] [id number] [address] [place] [address] Nov, [place] [address] [facility] [id number] [address] [place] [address] Nov, Bipolar 1 disorder, mixed F3 1.60 [place] [id number] [facility] [id number] [address] [place] [address] Nov, Major depressive disorder, r ecurrent episode, moderate F33.1 [place] [id number] [facility] [id number] [address] [place] [address] Nov, Cervicalgia M54.2 ; Arthralg ia of hip, unspecified laterality M25.559 ; Allergic rhinitis J30.9 and Hormone replacement therapy Z79.890 [facility] [address] [facility] [id number] [address] [place] [address] Nov, Other seasonal allergic rhin itis J30.2 [facility] [address] [facility] [id number] [address] [place] [address] October, Major depressive disorder, r ecurrent episode, moderate F33.1 [facility] [address] [facility] [id number] [address] [place] [address] October, Major depressive disorder, r ecurrent episode, moderate F33.1 and Arthralgia of hip, unspecified laterality M25.559 [facility] [address] [facility] [id number] [address] [place] [address] October, Grief F43.20 ; Hypertension I10 ; Hyperlipidemia, unspecified hyperlipidemia type E78.5 ; Other chronic pain G89.29 and Allergic rhinitis, unspecified allergic rhinitis type J30.9 [place] [address] [facility] [id number] [address] [place] [address] October, Major depressive disorder, r ecurrent episode, moderate F33.1 [place] [address] [facility] [id number] [address] [place] [address] Sep, Major depressive disorder, r ecurrent episode, moderate F33.1 [place] [address] [facility] [id number] [address] [place] [address] Sep, [place] [address] [place] [id number] [address] [place] [address] Sep, Major depressive disorder, r ecurrent episode, moderate F33.1 [place] [address] [facility] [id number] [address] [place] [address] Sep, Grief F43.20 [place] [address] [place] [id number] [address] [place] [address] Aug, Major depressive disorder, r ecurrent episode, moderate F33.1 [place] [address] [facility] [id number] [address] [place] [address] Aug, Bipolar 1 disorder, mixed F3 1.60 [place] [address] [facility] [id number] [address] [place] [address] Aug, Allergic rhinitis J30.9 ; Ce rvicalgia M54.2 and Low back pain M54.5 [facility] [address] [facility] [id number] [address] [place] [address] Aug, Major depressive disorder, r ecurrent episode, moderate F33.1 [facility] WALK IN [facility] [address] [facility] [id number] [address] [place] [address] Aug, Sinusitis J32.9 and Tobacco 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 [facility] [address] [facility] [id number] [address] [place] [address] Aug, [facility] [address] [facility] [id number] [address] [place] [address] Aug, Depressive disorder, not els ewhere classified F32.9 ; Hormone replacement therapy Z79.[address] scan, head R93.0 [facility] [address] [facility] [id number] [address] [place] [address] Aug, Major depressive disorder, r ecurrent episode, moderate F33.1 [facility] [address] [place] [id number] [address] [place] [address] Jul, Major depressive disorder, r ecurrent episode, moderate F33.1 [facility] [address] [place] [id number] [address] [place] [address] Jul, Abdominal pain R10.9 and Hyp ertension I10 [facility] [address] [facility] [id number] [address] [place] [address] 08 Jul, 2015 [facility] [address] [place] [id number] [address] [place] [address] 05 Jul, 2015 Major depressive disorder, r ecurrent episode, moderate F33.1 [facility] [address] [place] [id number] [address] [place] [address] Jul, [facility] [address] [facility] [id number] [address] [place] [address] Jul, [facility] [address] [place] [id number] [address] [place] [address] Jun, [facility] [address] [facility] [id number] [address] [place] [address] Jun, Depressive disorder, not els ewhere classified F32.9 [facility] [address] [place] [id number] [address] [place] [address] Jun, [facility] [address] [id number] [address] [place] [address] Jun, [facility] [address] [facility] [id number] [address] [place] [address] Jun, Arthralgia of hip, unspecifi ed laterality M25.559 ; Bruising, spontaneous R23.3 and Night sweats R61 [facility] [address] [id number] [address] [place] [address] Jun, [facility] [address] [id number] [address] [place] [address] Jun, [facility] [address] [facility] [id number] [address] [place] [address] May, [facility] [address] [place] [id number] [address] [place] [address] May, Myalgia M79.1 and Screening, lipid Z13.220 [facility] [address] [facility] [id number] [address] [place] [address] Apr, Status post cervical spinal fusion Z98.1 ; Fibromyalgia M79.7 and Unsteady gait R26.81 [facility] [address] [facility] [id number] [address] [place] [address] Nov, [facility] [address] [facility] [id number] [address] [place] [address] Nov, [facility] [address] [id number] [address] [place] [address] October, [facility] [address] [facility] [id number] [address] [place] [address] October, [facility] [address] [facility] [id number] [address] [place] [address] October, [facility] [address] [facility] [id number] [address] [place] [address] October, [facility] [address] [id number] [address] [place] [address] October, [facility] [address] [id number] [address] [place] [address] October, Dysuria 788.1 ; Nausea 787.0 2 and Urinary tract infection 599.0 [facility] [address] [id number] [address] [place] [address], [place] [address] Sep, [facility] [address] [id number] [address] [place] [address] Sep, [facility] [address] [id number] [address] [place] [address], [place] [address] Aug, [facility] [address] [id number] [address] [place] [address] Aug, [facility] [address] [id number] [address] [place] [address], [place] [address] Aug, [facility] [address] [id number] [address] [place] [address] Aug, [facility] [address] [id number] [address] [place] [address], [place] [address] Aug, [facility] [address] [id number] [address] [place] [address] Aug, [facility] [address] [id number] [address] [place] [address], [place] [address] Aug, [facility] [address] [id number] [address] [place] [address] Aug, [facility] [address] [id number] [address] [place] [address] Aug, [facility] [address] [id number] [address] [place] [address] Aug, [facility] [address] [id number] [address] [place] [address] Aug, [facility] [address] [id number] [address] [place] [address], [place] [address] 13 Aug, 2014 [facility] [address] [id number] [address] [place] [address], [place] [address] 13 Aug, 2014 [facility] [address] [id number] [address] [place] [address], [place] [address] Aug, [facility] [address] [id number] [address] [place] [address], [place] [address] Aug, [facility] [address] [id number] [address] [place] [address], [place] [address] Aug, [facility] [address] [id number] [address] [place] [address], [place] [address] Aug, [facility] [address] [id number] [address] [place] [address], [place] [address] Aug, [facility] [address] [id number] [address] [place] [address], [place] [address] 05 Aug, 2014 [facility] [address] [id number] [address] [place] [address], [place] [address] Aug, [facility] [address] [id number] [address] [place] [address], [place] [address] Aug, [facility] [address] [id number] [address] [place] [address], [place] [address] Aug, [facility] [address] [id number] [address] [place] [address], [place] [address] Jul, [facility] [address] [id number] [address] [place] [address], [place] [address] Jul, [facility] [address] [id number] [address] [place] [address], [place] [address] Jul, [facility] [address] [id number] [address] [place] [address], [place] [address] Jul, [facility] [address] [id number] [address] [place] [address], [place] [address] Jul, 2014 [facility] [address] [id number] [address] [place] [address], [place] [address] Jul, 2014 [facility] [address] [id number] [address] [place] [address], [place] [address] Jul, 2014 [facility] [address] [id number] [address] [place] [address], [place] [address] Jul, 2014 [facility] [address] [id number] [address] [place] [address], [place] [address] Jul, 2014 [facility] [address] [id number] [address] [place] [address], [place] [address] Jul, 2014 [facility] [address] [id number] [address] [place] [address], [place] [address] Jul, 2014 [facility] [address] [id number] [address] [place] [address], [place] [address] Jul, 2014 [facility] [address] [id number] [address] [place] [address], [place] [address] Jul, [facility] [address] [id number] [address] [place] [address], [place] [address] Jul, [facility] [address] [id number] [address] [place] [address], [place] [address] Jun, [facility] [address] [id number] [address] [place] [address], [place] [address] Jun, [facility] [address] [id number] [address] [place] [address], [place] [address] Jun, [facility] [address] [id number] [address] [place] [address], [place] [address] Jun, [facility] [address] [id number] [address] [place] [address], [place] [address] Jun, [facility] [address] [id number] [address] [place] [address] [address] Jun, [facility] [address] [id number] [address] [place] [address], [place] [address] May, [facility] [address] [id number] [address] [place] [address], [place] [address] May, [facility] [address] [id number] [address] [place] [address], [place] [address] May, [facility] [address] [id number] [address] [place] [address], [place] [address] May, [facility] [address] [id number] [address] [place] [address], [place] [address] May, [facility] [address] [address] [id number] [address] [place] [address], [place] [address] May, [facility] [address] [id number] [address] [place] [address], [place] [address] Apr, [facility] [address] [id number] [address] [place] [address], [place] [address] Apr, [facility] [address] [id number] [address] [place] [address], [place] [address] Apr, [facility] [address] [id number] [address] [place] [address], [place] [address] Apr, [facility] [address] [id number] [address] [place] [address], [place] [address] Apr, [facility] [address] [id number] [address] [place] [address], [place] [address] Apr, [facility] [address] [id number] [address] [place] [address], [place] [address] Mar, [facility] [address] [id number] [address] [place] [address], [place] [address] Mar, [facility] [address] [id number] [address] [place] [address], [place] [address] Mar, [facility] [address] [id number] [address] [place] [address], [place] [address] 09 Mar, 2013 [facility] [address] [id number] [address] [place] [address], [place] [address] Mar, 2013 [facility] [address] [id number] [address] [place] [address], [place] [address] Mar, 2013 [facility] [address] [id number] [address] [place] [address], [place] [address] Mar, 2013 [facility] [address] [id number] [address] [place] [address], [place] [address] Mar, 2013 [facility] [address] [id number] [address] [place] [address], [place] [address] Mar, 2013 [facility] [address] [id number] [address] [place] [address], [place] [address] Mar, 2013 [facility] [address] [id number] [address] [place] [address], [place] [address] Mar, 2013 [facility] [address] [id number] [address] [place] [address], [place] [address] Mar, 2013 [facility] [address] [id number] [address] [place] [address], [place] [address] 30 Sep, 2013 [facility] [address] [id number] [address] [place] [address], [place] [address] 29 Sep, 2013 [facility] [address] [id number] [address] [place] [address], [place] [address] 29 Sep, 2013 [facility] [address] [id number] [address] [place] [address], [place] [address] 23 Sep, 2013 [facility] [address] [id number] [address] [place] [address], [place] [address] 23 Sep, 2013 [facility] [address] [id number] [address] [place] [address], [place] [address] 08 Sep, 2013 [facility] [address] [id number] [address] [place] [address], [place] [address] Feb, [facility] [address] [id number] [address] [place] [address], [place] [address] Jan, [facility] [address] [id number] [address] [place] [address], [place] [address] Jan, [facility] [address] [id number] [address] [place] [address], [place] [address] Jan, [facility] [address] [id number] [address] [place] [address], [place] [address] Dec, [facility] [address] [id number] [address] [place] [address], [place] [address] Dec, [facility] [address] [id number] [address] [place] [address], [place] [address] Dec, [facility] [address] [id number] [address] [place] [address], [place] [address] Dec, [facility] [address] [id number] [address] [place] [address], [place] [address] Sep, [facility] [address] [id number] [address] [place] [address], [place] [address] Sep, [facility] [address] [id number] [address] [place] [address], [place] [address] Sep, [facility] [address] [id number] [address] [place] [address], [place] [address] Sep, [facility] [address] [id number] [address] [place] [address], [place] [address] Sep, [facility] [address] [id number] [address] [place] [address], [place] [address] Sep, [facility] [address] [id number] [address] [place] [address], [place] [address] Sep, [facility] [address] [id number] [address] [place] [address], [place] [address] Sep, [facility] [address] [id number] [address] [place] [address], [place] [address] 10 Aug, 2013 [facility] [address] [id number] [address] [place] [address], [place] [address] Aug, [facility] [address] [id number] [address] [place] [address], [place] [address] May, [facility] [address] [id number] [address] [place] [address], [place] [address] May, [facility] [address] [id number] [address] [place] [address], [place] [address] Apr, [facility] [address] [id number] [address] [place] [address], [place] [address] Apr, [facility] [address] [id number] [address] [place] [address], [place] [address] Apr, [facility] [address] [id number] [address] [place] [address], [place] [address] Apr, [facility] [address] [id number] [address] [place] [address], [place] [address] Apr, [facility] [address] [id number] [address] [place] [address], [place] [address] Apr, [facility] [address] [id number] [address] [place] [address], [place] [address] May, [facility] [address] [id number] [address] [place] [address], [place] [address] 18 May, 2012 [facility] [address] [id number] [address] [place] [address], [place] [address] 15 May, 2012 [facility] [address] [id number] [address] [place] [address], [place] [address] 15 May, 2012 [facility] [address] [id number] [address] [place] [address], [place] [address] 13 May, 2012 [facility] [address] [id number] [address] [place] [address], [place] [address] 13 May, 2012 [facility] [address] [id number] [address] [place] [address], [place] [address] 13 Apr, 2012 [facility] [address] [id number] [address] [place] [address], [place] [address] 13 Apr, 2012 [facility] [address] [id number] [address] [place] [address], [place] [address] 08 Apr, 2012 [facility] [address] [id number] [address] [place] [address], [place] [address] Apr, [facility] [address] [id number] [address] [place] [address], [place] [address] 08 Apr, 2012 [facility] [address] [id number] [address] [place] [address], [place] [address] Apr, [facility] [address] [id number] [address] [place] [address], [place] [address] Apr, [facility] [address] [id number] [address] [place] [address], [place] [address] Apr, [facility] [address] [id number] [address] [place] [address], [place] [address] Apr, [facility] [address] [id number] [address] [place] [address], [place] [address] Apr, [facility] [address] [id number] [address] [place] [address], [place] [address] Mar, [facility] [address] [id number] [address] [place] [address], [place] [address] Mar, [facility] [address] [id number] [address] [place] [address], [place] [address] Mar, [facility] [address] [id number] [address] [place] [address], [place] [address] Mar, [facility] [address] [id number] [address] [place] [address], [place] [address] Mar, [facility] [address] [id number] [address] [place] [address], [place] [address] Mar, [facility] [address] [id number] [address] [place] [address], [place] [address] Mar, [facility] [address] [id number] [address] [place] [address], [place] [address] Mar, [facility] [address] [id number] [address] [place] [address], [place] [address] Mar, [facility] [address] [id number] [address] [place] [address], [place] [address] 25 Feb, 2012 [facility] [address] [id number] [address] [place] [address], [place] [address] 16 Feb, 2012 [facility] [address] [id number] [address] [place] [address], [place] [address] Feb, [facility] [address] [id number] [address] [place] [address], [place] [address] Jan, [facility] [address] [id number] [address] [place] [address], [place] [address] Jan, [facility] [address] [id number] [address] [place] [address], [place] [address] Jan, [facility] [address] [id number] [address] [place] [address], [place] [address] Jan, [facility] [address] [id number] [address] [place] [address], [place] [address] Jan, [facility] [address] [id number] [address] [place] [address], [place] [address] Jan, [facility] [address] [id number] [address] [place] [address], [place] [address] 16 Jan, 2012 [facility] [address] [id number] [address] [place] [address], [place] [address] Jan, [facility] [address] [id number] [address] [place] [address], [place] [address] Jan, [facility] [address] [id number] [address] [place] [address] Jan, [facility] [address] [id number] [address] [place] [address], [place] [address] Dec, [facility] [address] [id number] [address] [place] [address], [place] [address] Dec, [facility] [address] [id number] [address] [place] [address], [place] [address] Dec, [facility] [address] [id number] [address] [place] [address], [place] [address] Dec, [facility] [address] [id number] [address] [place] [address], [place] [address] Nov, [facility] [address] [id number] [address] [place] [address], [place] [address] Nov, [facility] [address] [id number] [address] [place] [address], [place] [address] Nov, [facility] [address] [id number] [address] [place] [address], [place] [address] October, [facility] [address] [id number] [address] [place] [address], [place] [address] October, [facility] [address] [id number] [address] [place] [address], [place] [address] October, [facility] [address] [id number] [address] [place] [address], [place] [address] October, [facility] [address] [id number] [address] [place] [address], [place] [address] October, [facility] [address] [id number] [address] [place] [address], [place] [address] October, [facility] [address] [id number] [address] [place] [address], [place] [address] Aug, [facility] [address] [id number] [address] [place] [address], [place] [address] Mar, [facility] [address] [facility] [id number] [address] [place] [address] 16 Nov, 2010 [facility] [address] [facility] [id number] [address] [place] [address] May, [facility] [address] [facility] [id number] [address] [place] [address] May, [facility] [address] [facility] [id number] [address] [place] [address] Apr, [facility] [address] [facility] [id number] [address] [place] [address] Mar, [facility] [address] [facility] [id number] [address] [place] [address] Mar, IMMUNIZATIONS No Known Immunizations SOCIAL HISTORY Never Assessed REASON FOR VISIT EMR-[facility] PLAN OF CARE VITAL SIGNS MEDICATIONS Unknown [...]
--- OUTSIDE RECORDS SUMMARY | 2019-06-19 05:24 | XMS REPORT ---
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 Name Role Phone NAHOMY HANCOCK Unavailable PROBLEMS Type Condition ICD9-CM Code PLP66-EY Code Onset Dates Condition S tatus SNOMED Code Problem Abnormal CT scan, head R93.0 Active 808186984 Problem Hormone replacement therapy Z79.890 Ac tive 989109308 Problem Bruising, spontaneous R23.3 Active 139437998 Problem Sensorineural hearing loss (SNHL) of both ears H90 .3 Active 349271113 Problem Night sweats R61 Active 3965217 0 Problem Arthralgia of hip, unspecified laterality M25.559 Active 16863872 Problem Hematuria, unspecified type R31.9 Ac tive 76723823 Problem Generalized anxiety disorder F41.1 A ctive 58485225 Problem Gastritis without bleeding, unspecified chronicity, unspecified gastritis type K29.70 Active 808830270 Problem Other chronic pain G89.29 Active 8 8481774 Problem Ataxia R27.0 Active 66341372 Problem Bipolar 1 disorder, mixed F31.60 Acti ve 40393275 Problem Allergic rhinitis J30.9 Active 61 309318 Problem Hearing loss, unspecified laterality H91.90 Active 52404872 Problem History of colon polyps Z86.010 Active 878158270 Problem Hot flashes due to menopause N95.1 A ctive 330526944 Problem Hammer toe of right foot M20.41 Activ e 272563993 Problem Imbalance R26.89 Active 805405818 Problem Major depressive disorder, recurrent episode, moderate F33.1 Active 576664471 Problem Plantar wart of right foot B07.0 Act mitchell [id number] Problem Hyperlipidemia, unspecified hyperlipidemia type E7 8.5 Active 27639382 Problem Slow transit constipation K59.01 Acti ve 88015633 Problem Hypertension I10 Active 1294369 3 Problem Grief F43.20 Active 24754460 Problem Fibromyalgia M79.7 Active 6323041 7 Problem Bladder spasm N32.89 Active 122079 006 Problem Acute left-sided low back pain with left-sided sciatica M54.42 Active 045481835 Problem Sciatica of left side M54.32 Active 58755984 ALLERGIES Substance Reaction Event Type Date Status Morphine Sulfate Unknown Drug Allergy Jul, Active Iodine Unknown Drug Allergy Jul, Active Lyrica 75 Mg Capsule "felt weird" Non Drug Allergy Jul, Act mitchell ENCOUNTERS Encounter Location Date Diagnosis [facility] [address] [facility] [id number] [address] [place] [phone] Aug, Encounter for Medicare annua l wellness exam Z00.00 [facility] [address] [facility] [id number] [address] [place] [id number] 18 Aug, 2018 [facility] [address] [place] [id number] [address] [place] [id number] 14 Aug, 2018 [facility] [address] [place] [id number] [address] [place] [id number] Jul, [facility] [address] [place] [id number] [address] [place] [phone] Jul, [facility] [address] [place] [id number] [address] [place] [id number] Jul, Allergic rhinitis J30.9 ; Ma darion depressive disorder, recurrent episode, moderate F33.1 and Tobacco 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 [facility] [address] [place] [id number] [address] [place] [phone] Jun, [facility] [address] [facility] [id number] [address] [place] [phone] Jun, [facility] [address] [place] [id number] [address] [place] [phone] Jun, Bipolar 1 disorder, mixed F3 1.60 [facility] [address] [place] [id number] [address] [place] [phone] Jun, Bipolar 1 disorder, mixed F3 1.60 [facility] [address] [place] [id number] [address] [place] [id number] Jun, Bipolar 1 disorder, mixed F3 1.60 [facility] [address] [place] [id number] Jun, Generalized anxiety disorder F41.1 ; Tobacco abuse Z72.0 and Major depressive disorder, recurrent episode, moderate F33.1 [place] [address] [place] [id number] May, Bipolar 1 disorder, mixed F3 1.60 [place] [address] [place] [address] May, Bipolar 1 disorder, mixed F3 1.60 and Generalized anxiety disorder F41.1 [place] [address] [address] May, Bipolar 1 disorder, mixed F3 1.60 [place] [address] [place] [id number] [address] [place] [phone] May, Allergic rhinitis J30.9 [place] [address] [address] May, Bipolar 1 disorder, mixed F3 1.60 [place] [address] [address] May, [facility] [address] [place] 27[address]82[address] Apr, Allergic rhinitis J30.9 ; Dy sfunction of both eustachian tubes H69.83 ; History of bladder surgery Z98.890 and Cervicalgia M54.2 [place] [address] [place] [id number] [address] [place], [place] [id number] Mar, Bipolar 1 disorder, mixed F3 1.60 [place] [address] [place] [id number] [address] [place] [phone] Mar, [place] [address] [facility] [id number] [address] [place] [phone] Mar, Slow transit constipation K5 9.01 ; Encounter for immunization Z23 and Generalized anxiety disorder F41.1 [facility] [address] [facility] [id number] [address] [place] [id number] 27 Feb, 2018 Bipolar 1 disorder, mixed F3 1.60 [facility] [address] [place] [id number] [address] [place] [phone] 26 Feb, 2018 Allergic rhinitis J30.9 [facility] [address] [facility] [id number] [address] [place] [phone] 24 Feb, 2018 Bipolar 1 disorder, mixed F3 1.60 [place] [address] [place] [id number] [address] [place] [phone] 20 Feb, 2018 Bipolar 1 disorder, mixed F3 1.60 and Generalized anxiety disorder F41.1 [place] [address] [place] [id number] [address] [place] [phone] 13 Feb, 2018 Bipolar 1 disorder, mixed F3 1.60 [place] [address] [place] [id number] [address] [place] [phone] 11 Feb, 2018 Allergic rhinitis J30.9 [facility] [address] [facility] [id number] [address] [place] [id number] 05 Feb, 2018 [place] [address] [place] [id number] [address] [place] [phone] Jan, Bipolar 1 disorder, mixed F3 1.60 [facility] [address] [facility] [id number] [address] [place] [phone] Jan, Low back pain M54.5 ; Hyperl ipidemia, unspecified hyperlipidemia type E78.5 and Bipolar 1 disorder, mixed F31.60 [place] [address] [place] [id number] [address] [place] [id number] Jan, Bipolar 1 disorder, mixed F3 1.60 [place] [address] [place] [id number] [address] [place] [phone] Jan, Bipolar 1 disorder, mixed F3 1.60 [facility] [address] [facility] [id number] [address] [place] [phone] Jan, Bipolar 1 disorder, mixed F3 1.60 [facility] [address] [facility] [id number] [address] [place] [phone] Jan, Bipolar 1 disorder, mixed F3 1.60 [facility] [address] [facility] [id number] [address] [place] [phone] Dec, Bipolar 1 disorder, mixed F3 1.60 ; Generalized anxiety disorder F41.1 and Other shelter (current) drug therapy Z79.899 [facility] [address] [facility] [id number] [address] [place] [id number] Dec, 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 Z79.899 [facility] [address] [facility] [id number] [address] [place] [phone] Dec, Bipolar 1 disorder, mixed F3 1.60 [facility] [address] [facility] [id number] [address] [place] [phone] Dec, Bipolar 1 disorder, mixed F3 1.60 [facility] [address] [facility] [id number] [address] [place] [id number] Nov, Bipolar 1 disorder, mixed F3 1.60 [facility] [address] [facility] [id number] [address] [place] [phone] Nov, Bipolar 1 disorder, mixed F3 1.60 [facility] [address] [facility] [id number] [address] [place] [id number] Nov, Bipolar 1 disorder, mixed F3 1.60 [facility] [address] [facility] [id number] [address] [place] [phone] Nov, Allergic rhinitis J30.9 [facility] [address] [facility] [id number] [address] [place] [phone] Nov, Allergic rhinitis J30.9 [facility] [address] [address] Nov, [facility] [address] [address] Nov, Bipolar 1 disorder, mixed F3 1.60 [facility] [address] [address] Nov, Fibromyalgia M79.7 and Aller gic rhinitis J30.9 [facility] [address] [address] October, Bipolar 1 disorder, mixed F3 1.60 [facility] [address] [address] October, Acute nasopharyngitis J00 [facility] [address] [address] October, Bitten or stung by nonvenomo us insect and other nonvenomous arthropods, initial encounter W57.XXXA and Insect bite (nonvenomous) of abdominal wall, initial encounter S30.861A [place] [address] [address] October, Insect bite (nonvenomous) of abdominal wall, initial encounter S30.861A ; Bitten or stung by nonvenomous insect and other nonvenomous arthropods, initial encounter W57.XXXA ; Allergic rhinitis J30.9 and Low back pain M54.5 [facility] [address] [address] October, Bipolar 1 disorder, mixed F3 1.60 [facility] [address] [address] October, [place] [address] [address] October, [facility] [address] [address] October, Bipolar 1 disorder, mixed F3 1.60 [facility] [address] [id number] [address] [place] [id number] Sep, Bipolar 1 disorder, mixed F3 1.60 [facility] [address] [id number] [address] [place] [id number] Sep, Other chronic pain G89.29 [facility] [address] [id number] [address] [place] [id number] Sep, [facility] [address] [id number] [address] [place] [id number] Sep, Bipolar 1 disorder, mixed F3 1.60 [facility] [address] [facility] [id number] [address] [place] [id number] 16 Sep, 2017 Allergic rhinitis J30.9 and Sciatica of left side M54.32 [facility] [address] [facility] [id number] [address] [place] [phone] Sep, Bipolar 1 disorder, mixed F3 1.60 [facility] [address] [id number] [address] [place] [phone] Sep, Bipolar 1 disorder, mixed F3 1.60 and Generalized anxiety disorder F41.1 [facility] [address] [facility] [id number] [address] [place] [phone] Aug, [facility] [address] [facility] [id number] [address] [place] [id number] Aug, Bipolar 1 disorder, mixed F3 1.60 [facility] [address] [id number] [address] [place] [phone] Aug, Bipolar 1 disorder, mixed F3 1.60 [facility] [address] [facility] [id number] [address] [place] [phone] Aug, [facility] [address] [facility] [id number] [address] [place] [phone] Aug, Generalized anxiety disorder F41.1 [facility] [address] [facility] [id number] [address] [place] [phone] Aug, Bipolar 1 disorder, mixed F3 1.60 [facility] [address] [facility] [id number] [address] [place] [id number] Aug, Plantar wart of right foot B 07.0 [facility] [address] [facility] [id number] [address] [place] [id number] Aug, Bipolar 1 disorder, mixed F3 1.60 [facility] [address] [place] [id number] [address] [place] [id number] Jul, Bipolar 1 disorder, mixed F3 1.60 [facility] [address] [facility] [id number] [address] [place] [id number] Jul, [facility] [address] [place] [id number] [address] [place] [id number] Jul, Bipolar 1 disorder, mixed F3 1.60 [facility] [address] [place] [id number] [address] [place] [phone] Jul, Generalized anxiety disorder F41.1 [facility] [address] [place] [id number] [address] [place] [phone] Jul, Bipolar 1 disorder, mixed F3 1.60 [facility] [address] [place] [id number] [address] [place] [id number] Jul, Acute left-sided low back pa in with left-sided sciatica M54.42 [facility] [address] [place] [id number] [address] [place] [phone] Jul, Coccydynia M53.3 [facility] [address] [facility] [id number] [address] [place] [id number] Jun, Bipolar 1 disorder, mixed F3 1.60 [facility] [address] [facility] [id number] [address] [place] [id number] Jun, Acute nasopharyngitis J00 [facility] [address] [place] [id number] [address] [place] [phone] Jun, Bipolar 1 disorder, mixed F3 1.60 [facility] [address] [address] Jun, Fibromyalgia M79.7 [facility] [address] [place] [id number] [place] [phone] Jun, Bipolar 1 disorder, mixed F3 1.60 [place] [address] [address] Jun, Fibromyalgia M79.7 and Bipol ar 1 disorder, mixed F31.60 [place] [address] [address] May, Bipolar 1 disorder, mixed F3 1.60 ; Generalized anxiety disorder F41.1 and 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 [place] [address] [address] May, Bipolar 1 disorder, mixed F3 1.60 [facility] [address] [address] May, Cough R05 and Body aches R52 [facility] [address] [address] 10 May, 2017 Bladder spasm N32.89 and Acu te cystitis without hematuria N30.00 [place] [address] [address] May, Bipolar 1 disorder, mixed F3 1.60 [place] [address] [address] Apr, [place] [address] [address] Apr, Major depressive disorder, r ecurrent episode, moderate F33.1 and Encounter for immunization Z23 [place] [address] [address] Apr, Bipolar 1 disorder, mixed F3 1.60 [facility] [id number] [place] [address] Apr, Bipolar 1 disorder, mixed F3 1.60 [facility] [address] [place] [id number] [address] [place] [address] Apr, Bipolar 1 disorder, mixed F3 1.60 [facility] [address] [address] Apr, Yeast vaginitis B37.3 [facility] [address] [address] Apr, Bipolar 1 disorder, mixed F3 1.60 [facility] [address] [address] 07 Apr, 2017 Cellulitis L03[address] for immunization Z23 [place] [address] [address] Apr, Bipolar 1 disorder, mixed F3 1.60 [facility] [address] [address] Mar, Bipolar 1 disorder, mixed F3 1.60 [facility] [address] [address] Mar, Bipolar 1 disorder, mixed F3 1.60 [facility] [address] [address] Mar, Imbalance R26.89 and Encount er for immunization Z23 [facility] [address] [place] [id number] [address] [place] [phone] Mar, Generalized anxiety disorder F41.1 [place] [address] [address] Mar, Bipolar 1 disorder, mixed F3 1.60 [facility] [address] [place] [id number] [address] [place] [address] Mar, Generalized anxiety disorder F41.1 [place] [address] [place] [id number] [address] [place] [phone] Mar, Bipolar 1 disorder, mixed F3 1.60 [place] [address] [place] [id number] [address] [place] [address] Mar, Bipolar 1 disorder, mixed F3 1.60 [place] [address] [place] [id number] [place] [address] Feb, Bipolar 1 disorder, mixed F3 1.60 [place] [address] [place] [id number] [place] [address] Feb, Bipolar 1 disorder, mixed F3 1.60 and Generalized anxiety disorder F41.1 [place] [address] [place] [id number] [place] [address] Feb, Gastritis without bleeding, unspecified chronicity, unspecified gastritis type K29.70 ; Hammer toe of right foot M20.41 and Other viral warts B07.8 [place] [address] [place] [id number] [address] [place] [address] Feb, Bipolar 1 disorder, mixed F3 1.60 [place] [address] [place] [id number] [address] [place] [address] Feb, Bipolar 1 disorder, mixed F3 1.60 [place] [address] [place] [id number] [place] [address] Feb, Bipolar 1 disorder, mixed F3 1.60 [place] [address] [place] [id number] [address] [place] [address] Jan, Encounter for screening mamm ogram for breast cancer Z12.31 ; Other viral warts B07.8 and Allergic rhinitis J30.9 [place] [address] [facility] [id number] [address] [place] [id number] Jan, Bipolar 1 disorder, mixed F3 1.60 [place] [address] [place] [id number] [address] [place] [address] Jan, Bipolar 1 disorder, mixed F3 1.60 [facility] [address] [place] [id number] [address] [place] [address] Jan, [facility] [address] [place] [id number] [address] [place] [phone] Jan, Bipolar 1 disorder, mixed F3 1.60 [facility] [address] [place] [id number] [address] [place] [address] Jan, Bipolar 1 disorder, mixed F3 1.60 [place] [address] [place] [id number] [address] [place] [address] Jan, Allergic rhinitis J30.9 ; He maturia R31.9 and Colon cancer screening Z12.11 [place] [address] [place] [id number] [address] [place] [address] Dec, Bipolar 1 disorder, mixed F3 1.60 [place] [address] [address] Dec, Bipolar 1 disorder, mixed F3 1.60 ; Generalized anxiety disorder F41.1 and 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 [place] [address] [place] [id number] [place] [address] Dec, Bipolar 1 disorder, mixed F3 1.60 [place] [address] [place] [address] Dec, Bipolar 1 disorder, mixed F3 1.60 [place] [address] [place] [address] Dec, Bipolar 1 disorder, mixed F3 1.60 [place] [address] [place] [id number] [place] [address] Dec, Low back pain M54.5 and Recu rrent urinary tract infection N39.0 [facility] [address] [place] [id number] [address] [place] [address] Nov, Bipolar 1 disorder, mixed F3 1.60 [facility] [address] [facility] [id number] [address] [place] [phone] Nov, Bipolar 1 disorder, mixed F3 1.60 [facility] [address] [facility] [id number] [address] [place] [address] Nov, Bipolar 1 disorder, mixed F3 1.60 [place] [address] [place] [id number] [address] [place] [phone] Nov, Bipolar 1 disorder, mixed F3 1.60 [place] [address] [facility] [id number] [address] [place] [phone] Nov, [place] [address] [place] [id number] [place] [address] Nov, Anesthesia of skin R20.0 ; F requent UTI N39.0 ; Tobacco abuse Z72.0 and Colon cancer screening Z12.11 [place] [address] [place] [id number] [address] [place] [id number] Nov, Bipolar 1 disorder, mixed F3 1.60 [place] [address] [place] [id number] [place] [id number] October, Bipolar 1 disorder, mixed F3 1.60 [place] [address] [place] [id number] [place] [id number] October, Bipolar 1 disorder, mixed F3 1.60 [place] [address] [place] [id number] [place] [phone] October, Bipolar 1 disorder, mixed F3 1.60 [place] [address] [place] [id number] [place] [id number] October, Bipolar 1 disorder, mixed F3 1.60 [place] [address] [place] [id number] [place] [id number] October, Bipolar 1 disorder, mixed F3 1.60 [place] [address] [place] [id number] [place] [id number] October, Cervicalgia M54.2 and Bipola r 1 disorder, mixed F31.60 [place] [address] [id number] October, Hypertension I10 ; Hyperlipi demia, unspecified hyperlipidemia type E78.5 and Family history of thyroid disease Z83.49 [place] [address] [address] October, [place] [address] October, Hypertension I10 ; Hyperlipi demia, unspecified hyperlipidemia type E78.5 and Family history of thyroid problem Z83.49 [place] [address] [place] [id number] October, Bipolar 1 disorder, mixed F3 1.60 [place] [address] [address] Sep, Bipolar 1 disorder, mixed F3 1.60 [place] [address] [address] Sep, Bipolar 1 disorder, mixed F3 1.60 [place] [address] [address] Sep, Bipolar 1 disorder, mixed F3 1.60 [place] [address] [address] Sep, History of colon polyps Z86. 010 and Hematochezia K92.1 [place] [address] [address] Sep, Major depressive disorder, r ecurrent episode, moderate F33.1 [place] [address] [address] Sep, Bipolar 1 disorder, mixed F3 1.60 [place] [address] [address] Aug, Hot flashes due to menopause N95.1 [facility] [id number] [place] [phone] Aug, Bipolar 1 disorder, mixed F3 1.60 [facility] [address] [place] [id number] [place] [id number] Aug, [facility] [address] [address] Aug, Bipolar 1 disorder, mixed F3 1.60 [place] [address] [address] Aug, Bipolar 1 disorder, mixed F3 1.60 [place] [address] [place] [id number] Aug, Hot flashes due to menopause N95.1 ; Cervicalgia M54.2 and Ataxia R27.0 [place] [address] [address] Jul, Bipolar 1 disorder, mixed F3 1.60 [place] [address] [address] Jul, Bipolar 1 disorder, mixed F3 1.60 [place] [address] [address] Jul, Bipolar 1 disorder, mixed F3 1.60 [place] [address] [address] Jul, Bipolar 1 disorder, mixed F3 1.60 [place] [address] [address] Jul, Bipolar 1 disorder, mixed F3 1.60 [place] [address] [place] [id number] Jul, Cervicalgia M54.2 ; Tremor R 25.1 ; Hearing abnormally acute, unspecified laterality H93.239 ; Alopecia L65.9 ; Encounter for immunization Z23 and Family history of thyroid disease Z83.49 [facility] [address] [place] [id number] [address] [place] [address] 06 Jul, 2016 Bipolar 1 disorder, mixed F3 1.60 [facility] [address] [place] [id number] [address] [place] [address] Jun, [facility] [address] [address] Jun, Hearing disorder, unspecifie d laterality H93.299 [facility] [address] [place] [id number] [address] [place] [address] Jun, Bipolar 1 disorder, mixed F3 1.60 [place] [address] [address] Jun, Bipolar 1 disorder, mixed F3 1.60 [place] [address] [address] Jun, Allergic rhinitis J30.9 [facility] [address] [place] [id number] [address] [place] [address] Jun, Bipolar 1 disorder, mixed F3 1.60 [facility] [id number] [place] [address] Jun, Bipolar 1 disorder, mixed F3 1.60 [facility] [address] [place] [address] Jun, Allergic rhinitis J30.9 [facility] [address] [place] [id number] [address] [place] [address] Jun, Allergic rhinitis J30.9 [facility] [address] [place] [id number] [address] [place] [address] Jun, Bipolar 1 disorder, mixed F3 1.60 [facility] [address] [place] [id number] [address] [place] [address] May, Bipolar 1 disorder, mixed F3 1.60 [facility] [address] [place] [id number] [address] [place] [address] May, Bipolar 1 disorder, mixed F3 1.60 [facility] [address] [address] May, [facility] [address] [address] May, Bipolar 1 disorder, mixed F3 1.60 [facility] [address] [address] May, Bipolar 1 disorder, mixed F3 1.60 [facility] [address] [address] May, [facility] [address] [address] May, [facility] [address] [address] May, [facility] [address] [address] May, Abdominal pain, unspecified location R10.9 [place] [address] [address] May, [facility] [address] [address] Apr, Hematuria R31.9 ; Ataxia R27 .0 and Hearing loss, unspecified laterality H91.90 [facility] [address] [address] Apr, Bipolar 1 disorder, mixed F3 1.60 [facility] [address] [address] Apr, Acute effusion of both middl e ears H65.193 [facility] [address] [address] Apr, Hematuria R31.9 and Pyelonep hritis N12 [facility] [address] [facility] [id number] [address] [place] [address] Apr, [facility] [address] [facility] [id number] [address] [place] [address] Mar, Bipolar 1 disorder, mixed F3 1.60 [facility] [address] [facility] [id number] [address] [place] [id number] Mar, [facility] [address] [place] [id number] [address] [place] [address] Mar, Bipolar 1 disorder, mixed F3 1.60 [facility] [address] [facility] [id number] [address] [place] [address] Mar, Bipolar 1 disorder, mixed F3 1.60 [place] [address] [place] [id number] [address] [place] [address] Mar, Encounter for immunization Z 23 and Gastritis without bleeding, unspecified chronicity, unspecified gastritis type K29.70 [place] [address] [place] [id number] [address] [place] [address] Mar, Bipolar 1 disorder, mixed F3 1.60 and Grief F43.20 [place] [address] [place] [id number] [address] [place] [address] Mar, Gastritis without bleeding, unspecified chronicity, unspecified gastritis type K29.70 [place] [address] [place] [id number] [address] [place] [address] Mar, Bipolar 1 disorder, mixed F3 1.60 [facility] [address] [facility] [id number] [address] [place] [address] Mar, Gastritis without bleeding, unspecified chronicity, unspecified gastritis type K29.70 [facility] [address] [facility] [id number] [address] [place] [address] Mar, [facility] [address] [facility] [id number] [address] [place] [address] Feb, Bipolar 1 disorder, mixed F3 1.60 [place] [address] [address] [facility] [id number] [address] [place] [address] Feb, Bipolar 1 disorder, mixed F3 1.60 and Grief F43.20 [facility] [address] [place] [id number] [address] [place], [place] [id number] Feb, Gastritis without bleeding, unspecified chronicity, unspecified gastritis type K29.70 [facility] [address] [place] [id number] [address] [place] [address] 14 Feb, 2016 Bipolar 1 disorder, mixed F3 1.60 [facility] [address] [facility] [id number] [address] [place] [address] 09 Feb, 2016 Gastroesophageal reflux dise ase, esophagitis presence not specified K21.9 [facility] [address] [place] [id number] [address] [place], [place] [id number] Jan, Bipolar 1 disorder, mixed F3 1.60 [place] [address] [place] [id number] [address] [place] [address] Jan, Bipolar 1 disorder, mixed F3 1.60 and Unsteady gait R26.81 [place] [address] [place] [id number] [address] [place] [id number] Jan, Bipolar 1 disorder, mixed F3 1.60 [facility] [address] [place] [id number] [address] [place] [id number] Jan, Bipolar 1 disorder, mixed F3 1.60 and 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 [place] [address] [place] [id number] [address] [place] [address] Jan, Bipolar 1 disorder, mixed F3 1.60 [place] [address] [place] [id number] [address] [place], [place] [address] Jan, Bipolar 1 disorder, mixed F3 1.60 [place] [address] [place] [id number] [address] [place] [address] Jan, Bipolar 1 disorder, mixed F3 1.60 ; Grief F43.20 and 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 [facility] [address] [facility] [id number] [address] [place] [address] Jan, Bipolar 1 disorder, mixed F3 1.60 [facility] [address] [facility] [id number] [address] [place] [id number] Dec, [place] [address] [place] [id number] [address] [place] [address] Dec, Bipolar 1 disorder, mixed F3 1.60 ; Vitamin D deficiency, unspecified E55.9 ; H/O allergic rhinitis Z87.09 ; Other chronic pain G89.29 and Dorsalgia, unspecified M54.9 [place] [address] [facility] [id number] [address] [place] [address] Dec, [place] [address] [place] [id number] [address] [place] [address] Dec, Bipolar 1 disorder, mixed F3 1.60 [place] [address] [place] [id number] [address] [place] [address] Dec, Major depressive disorder, r ecurrent episode, moderate F33.1 [place] [address] [place] [id number] [address] [place] [address] Dec, Major depressive disorder, r ecurrent episode, moderate F33.1 [place] [address] [place] [id number] [address] [place] [id number] Nov, [place] [address] [place] [id number] [address] [place] [address] Nov, Bipolar 1 disorder, mixed F3 1.60 [place] [address] [facility] [id number] [address] [place] [id number] Nov, Major depressive disorder, r ecurrent episode, moderate F33.1 [place] [address] [facility] [id number] [address] [place] [address] Nov, Cervicalgia M54.2 ; Arthralg ia of hip, unspecified laterality M25.559 ; Allergic rhinitis J30.9 and Hormone replacement therapy Z79.890 [facility] [address] [facility] [id number] [address] [place] [address] Nov, Other seasonal allergic rhin itis J30.2 [facility] [address] [facility] [id number] [address] [place] [address] October, Major depressive disorder, r ecurrent episode, moderate F33.1 [facility] [address] [facility] [id number] [address] [place] [address] October, Major depressive disorder, r ecurrent episode, moderate F33.1 and Arthralgia of hip, unspecified laterality M25.559 [facility] [address] [facility] [id number] [address] [place] [address] October, Grief F43.20 ; Hypertension I10 ; Hyperlipidemia, unspecified hyperlipidemia type E78.5 ; Other chronic pain G89.29 and Allergic rhinitis, unspecified allergic rhinitis type J30.9 [facility] [address] [facility] [id number] [address] [place] [id number] October, Major depressive disorder, r ecurrent episode, moderate F33.1 [place] [address] [facility] [id number] [address] [place] [id number] Sep, Major depressive disorder, r ecurrent episode, moderate F33.1 [place] [address] [facility] [id number] [address] [place] [address] Sep, [facility] [address] [facility] [id number] [address] [place] [address] Sep, Major depressive disorder, r ecurrent episode, moderate F33.1 [place] [address] [facility] [id number] [address] [place] [address] Sep, Grief F43.20 [place] [address] [facility] [id number] [address] [place] [id number] Aug, Major depressive disorder, r ecurrent episode, moderate F33.1 [place] [address] [facility] [id number] [address] [place] [address] Aug, Bipolar 1 disorder, mixed F3 1.60 [facility] [address] [facility] [id number] [address] [place] [address] Aug, Allergic rhinitis J30.9 ; Ce rvicalgia M54.2 and Low back pain M54.5 [facility] [address] [place] [id number] [address] [place] [address] Aug, Major depressive disorder, r ecurrent episode, moderate F33.1 [facility] [address] [facility] [id number] [address] [place] [address] Aug, Sinusitis J32.9 and Tobacco 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 [place] [address] [place] [id number] [address] [place] [address] Aug, [place] [address] [address] Aug, Depressive disorder, not els ewhere classified F32.9 ; Hormone replacement therapy Z79.[address] scan, head R93.0 [place] [address] [address] Aug, Major depressive disorder, r ecurrent episode, moderate F33.1 [place] [address] [place] [id number] [address] [place] [address] Jul, Major depressive disorder, r ecurrent episode, moderate F33.1 [place] [address] [place] [id number] [address] [place] [id number] Jul, Abdominal pain R10.9 and Hyp ertension I10 [place] [address] [facility] [id number] [address] [place] [id number] Jul, [facility] [address] [place] [id number] [address] [place] [id number] Jul, Major depressive disorder, r ecurrent episode, moderate F33.1 [facility] [address] [id number] [address] [place] [id number] Jul, [facility] [address] [facility] [id number] [address] [place] [id number] Jul, [facility] [address] [facility] [id number] [address] [place] [address] Jun, [facility] [address] [place] [id number] [address] [place] [phone] Jun, Depressive disorder, not els ewhere classified F32.9 [facility] [address] [facility] [id number] [address] [place] [id number] Jun, [facility] [address] [place] [id number] [address] [place] [address] Jun, [facility] [address] [place] [id number] [address] [place] [address] Jun, Arthralgia of hip, unspecifi ed laterality M25.559 ; Bruising, spontaneous R23.3 and Night sweats R61 [facility] [address] [facility] [id number] [address] [place] [address] Jun, [facility] [address] [place] [id number] [address] [place] [address] Jun, [facility] [address] [place] [id number] [address] [place] [id number] May, [facility] [address] [place] [id number] [place] [address] May, Myalgia M79.1 and Screening, lipid Z13.220 [facility] [address] [place] [id number] [address] [place] [id number] Apr, Status post cervical spinal fusion Z98.1 ; Fibromyalgia M79.7 and Unsteady gait R26.81 [facility] [address] [place] [id number] [address] [place] [address] Nov, [facility] [address] [id number] [address] [place] [address], [place] [address] Nov, [facility] [address] [id number] [address] [place] [address], [place] [address] October, [facility] [address] [id number] [address] [place] [address], [place] [address] October, [facility] [address] [id number] [address] [place] [address], [place] [address] October, [facility] [address] [id number] [address] [place] [address], [place] [address] October, [facility] [address] [id number] [address] [place] [address], [place] [address] October, [facility] [address] [id number] [address] [place] [address], [place] [address] October, Dysuria 788.1 ; Nausea 787.0 2 and Urinary tract infection 599.0 [facility] [address] [id number] [address] [place] [address], [place] [address] Sep, [facility] [address] [id number] [address] [place] [address], [place] [address] Sep, [facility] [address] [id number] [address] [place] [id number] Aug, [facility] [address] [id number] [address] [place] [address], [place] [address] Aug, [facility] [address] [id number] [address] [place] [phone] Aug, [facility] [address] [id number] [address] [place] [address], [place] [address] Aug, [facility] [address] [id number] [address] [place] [address], [place] [address] Aug, [facility] [address] [id number] [address] [place] [id number] Aug, [facility] [address] [id number] [facility] [place] [address] 19 Aug, 2014 [facility] [address] [id number] [address] [place] [address], [place] [address] 19 Aug, 2014 [facility] [address] [id number] [address] [place] [address], [place] [address] 19 Aug, 2014 [facility] [address] [id number] [address] [place] [address], [place] [address] 18 Aug, 2014 [facility] [address] [id number] [address] [place] [address], [place] [address] 18 Aug, 2014 [facility] [address] [id number] [address] [place] [address], [place] [address] 13 Aug, 2014 [facility] [address] [id number] [address] [place] [address], [place] [address] 13 Aug, 2014 [facility] [address] [id number] [address] [place] [address], [place] [address] 11 Aug, 2014 [facility] [address] [id number] [address] [place] [address], [place] [address] 11 Aug, 2014 [facility] [address] [id number] [address] [place] [address], [place] [address] 06 Aug, 2014 [facility] [address] [id number] [address] [place] [address], [place] [address] 06 Aug, 2014 [facility] [address] [id number] [address] [place] [address], [place] [address] 05 Aug, 2014 [facility] [address] [id number] [address] [place] [address], [place] [address] 05 Aug, 2014 [facility] [address] [id number] [address] [place] [address], [place] [address] 04 Aug, 2014 [facility] [address] [id number] [address] [place] [address], [place] [address] 03 Aug, 2014 [facility] [address] [id number] [address] [place] [address], [place] [address] Aug, [facility] [address] [id number] [address] [place] [address], [place] [address] Jul, 2014 [facility] [address] [id number] [address] [place] [address], [place] [address] Jul, 2014 [facility] [address] [id number] [address] [place] [address], [place] [address] Jul, 2014 [facility] [address] [id number] [address] [place] [address], [place] [address] Jul, 2014 [facility] [address] [id number] [address] [place] [address], [place] [address] Jul, 2014 [facility] [address] [id number] [address] [place] [address], [place] [address] Jul, 2014 [facility] [address] [id number] [address] [place] [address], [place] [address] Jul, 2014 [facility] [address] [id number] [address] [place] [address], [place] [address] Jul, 2014 [facility] [address] [id number] [address] [place] [address], [place] [address] Jul, 2014 [facility] [address] [id number] [address] [place] [address], [place] [address] Jul, 2014 [facility] [address] [id number] [address] [place] [address], [place] [address] Jul, 2014 [facility] [address] [id number] [address] [place] [address], [place] [address] Jul, 2014 [facility] [address] [id number] [address] [place] [address], [place] [address] Jul, 2014 [facility] [address] [id number] [address] [place] [address], [place] [address] Jul, 2014 [facility] [address] [id number] [address] [place] [id number] Jun, [facility] [address] [id number] [address] [place] [address], [place] [address] Jun, [facility] [address] [id number] [address] [place] [address], [place] [address] Jun, [facility] [address] [id number] [address] [place] [address], [place] [address] Jun, [facility] [address] [id number] [address] [place] [address], [place] [address] Jun, [facility] [address] [id number] [address] [place] [address], [place] [address] Jun, [facility] [address] [id number] [address] [place] [address], [place] [address] May, [facility] [address] [id number] [address] [place] [address], [place] [address] May, [facility] [address] [id number] [address] [place] [address], [place] [address] May, [facility] [address] [id number] [address] [place] [address], [place] [address] May, [facility] [address] [id number] [address] [place] [address], [place] [address] May, [facility] [address] [id number] [address] [place] [address], [place] [address] May, [facility] [address] [id number] [address] [place] [address], [place] [address] Apr, [facility] [address] [id number] [address] [place] [address], [place] [address] Apr, [facility] [address] [id number] [address] [place] [address], [place] [address] Apr, [facility] [address] [id number] [address] [place] [address], [place] [address] Apr, [facility] [address] [id number] [address] [place] [address], [place] [address] Apr, [facility] [address] [id number] [address] [place] [address], [place] [address] Apr, [facility] [address] [id number] [address] [place] [address], [place] [address] Mar, [facility] [address] [id number] [address] [place] [address], [place] [address] Mar, [facility] [address] [id number] [address] [place] [address], [place] [address] Mar, [facility] [address] [id number] [address] [place] [address], [place] [address] Mar, [facility] [address] [id number] [address] [place] [address], [place] [address] Mar, [facility] [address] [id number] [address] [place] [address], [place] [address] Mar, [facility] [address] [id number] [address] [place] [address], [place] [address] Mar, [facility] [address] [id number] [address] [place] [address], [place] [address] Mar, [facility] [address] [id number] [address] [place] [address], [place] [address] Mar, [facility] [address] [id number] [address] [place] [address], [place] [address] Mar, [facility] [address] [id number] [address] [place] [id number] Mar, [facility] [address] [id number] [address] [place] [address], [place] [address] Mar, [facility] [address] [id number] [address] [place] [address], [place] [address] Feb, [facility] [address] [id number] [address] [place] [address], [place] [address] 29 Feb, 2014 [facility] [address] [id number] [facility] [place] [address] Feb, [facility] [address] [id number] [facility] [place] [address] Feb, [facility] [address] [id number] [facility] [place] [address] Feb, [facility] [address] [id number] [address] [place] [address], [place] [address] Feb, [facility] [address] [id number] [address] [place] [address], [place] [address] Feb, [facility] [address] [id number] [address] [place] [address], [place] [address] Jan, [facility] [address] [id number] [address] [place] [address], [place] [address] Jan, [facility] [address] [id number] [address] [place] [address], [place] [address] Jan, [facility] [address] [id number] [address] [place] [address], [place] [address] Dec, [facility] [address] [id number] [address] [place] [address], [place] [address] Dec, [facility] [address] [id number] [address] [place] [address], [place] [address] Dec, [facility] [address] [id number] [address] [place] [address], [place] [address] Dec, [facility] [address] [id number] [address] [place] [address], [place] [address] Sep, [facility] [address] [id number] [address] [place] [address], [place] [address] Sep, [facility] [address] [id number] [address] [place] [address], [place] [address] Sep, [facility] [address] [id number] [address] [place] [address], [place] [address] Sep, [facility] [address] [id number] [address] [place] [address], [place] [address] Sep, [facility] [address] [id number] [address] [place] [address], [place] [address] Sep, [facility] [address] [id number] [address] [place] [address], [place] [address] Sep, [facility] [address] [id number] [address] [place] [address], [place] [address] Sep, [facility] [address] [id number] [address] [place] [address], [place] [address] Aug, [facility] [address] [id number] [address] [place] [address], [place] [address] Aug, [facility] [address] [id number] [address] [place] [address], [place] [address] May, [facility] [address] [id number] [address] [place] [address], [place] [address] May, [facility] [address] [id number] [address] [place] [address], [place] [address] Apr, [facility] [address] [id number] [address] [place] [address], [place] [address] Apr, [facility] [address] [id number] [address] [place] [address], [place] [address] Apr, [facility] [address] [id number] [address] [place] [address], [place] [address] Apr, [facility] [address] [id number] [address] [place] [address], [place] [address] Apr, [facility] [address] [id number] [address] [place] [address], [place] [address] Apr, [facility] [address] [id number] [address] [place] [address], [place] [address] May, [facility] [address] [id number] [address] [place] [address], [place] [address] 18 May, 2012 [facility] [address] [id number] [address] [place] [address], [place] [address] 15 May, 2012 [facility] [address] [id number] [address] [place] [address], [place] [address] 15 May, 2012 [facility] [address] [id number] [address] [place] [address], [place] [address] 13 May, 2012 [facility] [address] [id number] [address] [place] [address], [place] [address] 13 May, 2012 [facility] [address] [id number] [address] [place] [address], [place] [address] 13 Apr, 2012 [facility] [address] [id number] [address] [place] [address], [place] [address] 13 Apr, 2012 [facility] [address] [id number] [address] [place] [address], [place] [address] 08 Apr, 2012 [facility] [address] [id number] [address] [place] [address], [place] [address] 08 Apr, 2012 [facility] [address] [id number] [address] [place] [address], [place] [address] 08 Apr, 2012 [facility] [address] [id number] [address] [place] [address], [place] [address] 08 Apr, 2012 [facility] [address] [id number] [address] [place] [address], [place] [address] Apr, [facility] [address] [id number] [address] [place] [address], [place] [address] Apr, [facility] [address] [id number] [address] [place] [address], [place] [address] Apr, [facility] [address] [id number] [address] [place] [address], [place] [address] 07 Apr, 2012 [facility] [address] [id number] [address] [place] [address], [place] [address] Mar, [facility] [address] [id number] [address] [place] [address], [place] [address] Mar, [facility] [address] [id number] [address] [place] [address], [place] [address] Mar, [facility] [address] [id number] [address] [place] [address], [place] [address] Mar, [facility] [address] [id number] [address] [place] [address], [place] [address] Mar, [facility] [address] [id number] [address] [place] [address], [place] [address] Mar, [facility] [address] [id number] [address] [place] [address], [place] [address] Mar, [facility] [address] [id number] [address] [place] [address], [place] [address] Mar, [facility] [address] [id number] [address] [place] [address], [place] [address] Mar, [facility] [address] [id number] [address] [place] [address], [place] [address] Feb, [facility] [address] [id number] [address] [place] [address], [place] [address] 16 Feb, 2012 [facility] [address] [id number] [address] [place] [address] Feb, [facility] [address] [id number] [address] [place] [address] Jan, [facility] [address] [id number] [address] [place] [address], [place] [address] Jan, [facility] [address] [id number] [address] [place] [address], [place] [address] Jan, [facility] [address] [id number] [address] [place] [address], [place] [address] Jan, [facility] [address] [id number] [address] [place] [id number] Jan, [facility] [address] [id number] [address] [place] [address], [place] [address] Jan, [facility] [address] [id number] [address] [place] [address], [place] [address] Jan, [facility] [address] [id number] [address] [place] [address], [place] [address] Jan, [facility] [address] [id number] [address] [place] [address], [place] [address] Jan, [facility] [address] [id number] [address] [place] [address], [place] [address] Jan, [facility] [address] [id number] [address] [place] [address], [place] [address] Dec, [facility] [address] [id number] [address] [place] [address], [place] [address] Dec, [facility] [address] [id number] [address] [place] [address], [place] [address] Dec, [facility] [address] [id number] [address] [place] [address], [place] [address] Dec, [facility] [address] [id number] [address] [place] [address], [place] [address] Nov, [facility] [address] [id number] [address] [place] [address], [place] [address] Nov, [facility] [address] [id number] [address] [place] [address], [place] [address] Nov, [facility] [address] [id number] [address] [place] [address], [place] [address] October, [facility] [address] [id number] [address] [place] [address], [place] [address] October, [facility] [address] [id number] [address] [place] [address], [place] [address] October, [facility] [address] [id number] [address] [place] [address] October, [facility] [address] [id number] [address] [place] [address] October, [facility] [address] [id number] [address] [place] [address] October, [facility] [address] [id number] [address] [place] [address] Aug, [facility] [address] [id number] [address] [place] [address] Mar, [facility] [address] [id number] [address] [place] [address] Nov, [facility] [address] [id number] [address] [place] [address] May, [facility] [address] [id number] [address] [place] [address] May, [facility] [address] [id number] [address] [place] [address] Apr, [facility] [address] [id number] [address] [place] [id number] Mar, [facility] [address] [id number] [address] [place] [id number] Mar, IMMUNIZATIONS No Known Immunizations SOCIAL HISTORY Never Assessed REASON FOR VISIT Fibromyalgia Pt in for follow up, states needs refills on mometasone Elvin Jones PLAN OF CARE Activity Details Follow Up 4 Weeks Reason:fibromyalgia VITAL SIGNS Height 64 in 2018-07-29 Weight 166.3 lbs 2018-07-29 Temperature 97.9 degrees Fahrenheit 2018-07-29 Heart Rate 95 bpm 2018-07-29 Respiratory Rate 20 2018-07-29 Oximetry 100 % 2018-07-29 BMI 28.54 kg/m2 2018-07-29 Blood pressure systolic 144 mmHg 2018-07-29 Blood pressure diastolic 82 mmHg 2018-07-29 MEDICATIONS Medication Instructions Dosage Frequency Start Date End Date Duration S tatus Xyzal Allergy 24HR 5 MG Orally Once a day 1 tablet in the evening 24h 30 day(s) Active Depakote ER 500 mg Orally at bedtime 2 tabs 30 days Active Voltaren 1 % Transdermal 4 times a day on neck Active HydrOXYzine HCl 10 mg Orally 3 times a day as needed 1 tablet 11 Feb, 2018 30 days Active Mometasone Furoate 50 MCG/ACT Nasally twice a day 1 sprays in each nostril 12h Apr, 30 day(s) Active Lidocaine-Prilocaine 2.5-2.5 % Active Pantoprazole Sodium 20 MG TAKE 1 TABLET BY MOUTH ONCE DAILY 90 Active Nicoderm CQ 21 MG/24HR Transdermal Once a day 1 patch to skin 24h Jun, 30 day(s) Active Orally Once a day 1 capsule 24h Act mitchell Mucinex 600 MG Orally every 12 hrs 1 tablet as needed 12h Active Tylenol Arthritis Pain A ctive Vitamin D3 2000 UNIT Orally Once a day as directed 24h Dec, Active Baclofen 20 mg Orally 2 times a day 1 tablet with food or milk 12h 30 Active Estradiol 2 MG Orally Once a day 1 tablet 24h Active Fetzima 120 mg Orally Once a day TAKE 1 CAPSULE BY MOUTH DAILY 24h 30 days Active RESULTS No Results PROCEDURES Procedure Date Ordered Result Body Site [facility] VISIT ESTABLISHED PATIENT Jul 29, 2018 INSTRUCTIONS MEDICATIONS ADMINISTERED No Known [...]
--- OUTSIDE RECORDS SUMMARY | 2019-06-19 05:25 | XMS REPORT ---
Author Author Sydnie SQUIRES Organization [facility] Address [address] [place] [address] Care Team Providers Care Zigzagger Name Role Phone MIRIAN SQUIRES Unavailable PROBLEMS Type Condition ICD9-CM Code VWT90-VU Code Onset Dates Condition S tatus SNOMED Code Problem Hormone replacement therapy Z79.890 Ac tive 104315883 Problem Abnormal CT scan, head R93.0 Active 029724058 Problem Sensorineural hearing loss (SNHL) of both ears H90 .3 Active 356214437 Problem Bruising, spontaneous R23.3 Active 313518847 Problem Generalized anxiety disorder F41.1 A ctive 78119224 Problem Arthralgia of hip, unspecified laterality M25.559 Active 60237449 Problem Hematuria, unspecified type R31.9 Ac tive 02160971 Problem Night sweats R61 Active 9063462 0 Problem Hammer toe of right foot M20.41 Activ e 143414823 Problem Major depressive disorder, recurrent episode, moderate F33.1 Active 428030979 Problem Imbalance R26.89 Active 572400751 Problem Slow transit constipation K59.01 Acti ve 01974625 Problem Plantar wart of right foot B07.0 Act mitchell [id number] Problem Grief F43.20 Active 55099779 Problem Hyperlipidemia, unspecified hyperlipidemia type E7 8.5 Active 81283723 Problem Hypertension I10 Active 4890376 3 Problem Bladder spasm N32.89 Active 186576 006 Problem Fibromyalgia M79.7 Active 3715612 7 Problem Sciatica of left side M54.32 Active 67724632 Problem Acute left-sided low back pain with left-sided sciatica M54.42 Active 981693216 Problem Bipolar 1 disorder, mixed F31.60 Acti ve 24481472 Problem Ataxia R27.0 Active 42510773 Problem Other chronic pain G89.29 Active 8 7391489 Problem Gastritis without bleeding, unspecified chronicity, unspecified gastritis type K29.70 Active 231873583 Problem Hot flashes due to menopause N95.1 A ctive 932892208 Problem History of colon polyps Z86.010 Active 490935162 Problem Hearing loss, unspecified laterality H91.90 Active 81630873 Problem Allergic rhinitis J30.9 Active 61 116134 ALLERGIES No Information ENCOUNTERS Encounter Location Date Diagnosis [facility] [address] [id number] [address] [place] [address] Aug, [facility] [address] [id number] [address] [place] [address] Jun, [facility] [address] [id number] [address] [place] [address] Jun, [facility] [id number] [address] [place] [address] Jun, [facility] [id number] [place] [address] Jun, [facility] [id number] [place] [address] Jun, [facility] [address] [place] [address] [id number] [address] [place] [address] May, Bipolar 1 disorder, mixed F3 1.60 [place] [address] [place] [id number] [place] [address] May, Bipolar 1 disorder, mixed F3 1.60 and Generalized anxiety disorder F41.1 [facility] [id number] [place] [address] May, Bipolar 1 disorder, mixed F3 1.60 [place] [address] [place] [id number] [place] [address] 10 May, 2018 Allergic rhinitis J30.9 [facility] [id number] [place] [address] 06 May, 2018 Bipolar 1 disorder, mixed F3 1.60 [facility] [id number] [place] [address] May, [facility] [address] [id number] [address] [place] [address] Apr, Allergic rhinitis J30.9 ; Dy sfunction of both eustachian tubes H69.83 ; History of bladder surgery Z98.890 and Cervicalgia M54.2 [facility] [address] [id number] [address] [place] [address] Mar, Bipolar 1 disorder, mixed F3 1.60 [place] [address] [id number] [address] [place] [address] Mar, [place] [address] [place] [id number] [place] [address] Mar, Slow transit constipation K5 9.01 ; Encounter for immunization Z23 and Generalized anxiety disorder F41.1 [place] [address] [place] [id number] [place] [address] 27 Feb, 2018 Bipolar 1 disorder, mixed F3 1.60 [place] [address] [id number] [address] [place] [address] 26 Feb, 2018 Allergic rhinitis J30.9 [facility] [address] [id number] [address] [place] [address] 24 Feb, 2018 Bipolar 1 disorder, mixed F3 1.60 [place] [address] [id number] [address] [place] [address] 20 Feb, 2018 Bipolar 1 disorder, mixed F3 1.60 and Generalized anxiety disorder F41.1 [facility] [address] [id number] [address] [place] [address] 13 Feb, 2018 Bipolar 1 disorder, mixed F3 1.60 [place] [address] [id number] [address] [place] [address] 11 Feb, 2018 Allergic rhinitis J30.9 [facility] [address] [id number] [address] [place] [address] 05 Feb, 2018 [facility] [address] [id number] [address] [place] [address] Jan, Bipolar 1 disorder, mixed F3 1.60 [place] [address] [place] [id number] [place] [address] Jan, Low back pain M54.5 ; Hyperl ipidemia, unspecified hyperlipidemia type E78.5 and Bipolar 1 disorder, mixed F31.60 [place] [address] [place] [id number] [place] [address] Jan, Bipolar 1 disorder, mixed F3 1.60 [place] [address] [place] [id number] [place] [address] Jan, Bipolar 1 disorder, mixed F3 1.60 [place] [address] [place] [id number] [place] [address] Jan, Bipolar 1 disorder, mixed F3 1.60 [place] [address] [place] [id number] [place] [address] Jan, Bipolar 1 disorder, mixed F3 1.60 [place] [address] [id number] [address] [place] [address] Dec, Bipolar 1 disorder, mixed F3 1.60 ; Generalized anxiety disorder F41.1 and Other alf (current) drug therapy Z79.899 [place] [address] [place] [id number] [place] [address] Dec, Other alf (current) dr ug therapy Z79.899 [facility] [address] [id number] [address] [place] [address] Dec, Bipolar 1 disorder, mixed F3 1.60 [place] [address] [place] [id number] [place] [address] Dec, Bipolar 1 disorder, mixed F3 1.60 [place] [address] [place] [id number] [place] [address] Nov, Bipolar 1 disorder, mixed F3 1.60 [place] [id number] [place] [address] Nov, Bipolar 1 disorder, mixed F3 1.60 [place] [address] [place] [address] Nov, Bipolar 1 disorder, mixed F3 1.60 [place] [address] [address] Nov, Allergic rhinitis J30.9 [facility] [address] [address] Nov, Allergic rhinitis J30.9 [place] [address] [address] Nov, [place] [address] [address] Nov, Bipolar 1 disorder, mixed F3 1.60 [place] [address] [address] Nov, Fibromyalgia M79.7 and Aller gic rhinitis J30.9 [place] [address] [address] October, Bipolar 1 disorder, mixed F3 1.60 [facility] [address] [address] October, Acute nasopharyngitis J00 [facility] [address] [address] October, Bitten or stung by nonvenomo us insect and other nonvenomous arthropods, initial encounter W57.XXXA and Insect bite (nonvenomous) of abdominal wall, initial encounter S30.861A [place] [address] [place] [id number] [place] [address] October, Insect bite (nonvenomous) of abdominal wall, initial encounter S30.861A ; Bitten or stung by nonvenomous insect and other nonvenomous arthropods, initial encounter W57.XXXA ; Allergic rhinitis J30.9 and Low back pain M54.5 [facility] [address] [id number] [address] [place] [address] October, Bipolar 1 disorder, mixed F3 1.60 [facility] [address] [id number] [address] [place] [address] October, [facility] [address] [id number] [address] [place] [address] October, [facility] [address] [id number] [address] [place] [address] October, Bipolar 1 disorder, mixed F3 1.60 [facility] [address] [id number] [address] [place] [address] Sep, Bipolar 1 disorder, mixed F3 1.60 [facility] [id number] [place] [address] Sep, Other chronic pain G89.29 [facility] [address] [id number] [address] [place] [address] Sep, [facility] [id number] [place] [address] Sep, Bipolar 1 disorder, mixed F3 1.60 [facility] [id number] [place] [address] Sep, Allergic rhinitis J30.9 and Sciatica of left side M54.32 [facility] [address] [id number] [address] [place] [address] Sep, Bipolar 1 disorder, mixed F3 1.60 [facility] [address] [id number] [address] [place] [address] Sep, Bipolar 1 disorder, mixed F3 1.60 and Generalized anxiety disorder F41.1 [facility] [address] [id number] [address] [place] [address] Aug, [facility] [address] [id number] [address] [place] [address] Aug, Bipolar 1 disorder, mixed F3 1.60 [facility] [address] [id number] [address] [place] [address] Aug, Bipolar 1 disorder, mixed F3 1.60 [facility] [id number] [place] [address] Aug, [facility] [address] [id number] [address] [place] [address] Aug, Generalized anxiety disorder F41.1 [facility] [address] [id number] [address] [place] [address] Aug, Bipolar 1 disorder, mixed F3 1.60 [facility] [id number] [place] [address] Aug, Plantar wart of right foot B 07.0 [facility] [id number] [place] [address] Aug, Bipolar 1 disorder, mixed F3 1.60 [facility] [address] [id number] [address] [place] [address] Jul, Bipolar 1 disorder, mixed F3 1.60 [facility] [id number] [place] [address] Jul, [facility] [id number] [place] [address] 14 Jul, 2017 Bipolar 1 disorder, mixed F3 1.60 [facility] [address] [id number] [address] [place] [address] Jul, Generalized anxiety disorder F41.1 [facility] [id number] [place] [address] Jul, Bipolar 1 disorder, mixed F3 1.60 [facility] [address] [id number] [address] [place] [address] Jul, Acute left-sided low back pa in with left-sided sciatica M54.42 [facility] [address] [id number] [address] [place] [address] 05 Jul, 2017 Coccydynia M53.3 [facility] [address] [id number] [address] [place] [address] Jun, Bipolar 1 disorder, mixed F3 1.60 [facility] [address] [id number] [address] [place] [address] Jun, Acute nasopharyngitis J00 [place] [address] [id number] [address] [place] [address] Jun, Bipolar 1 disorder, mixed F3 1.60 [place] [address] [id number] [address] [place] [address] Jun, Fibromyalgia M79.7 [place] [address] [place] [id number] [place] [address] Jun, Bipolar 1 disorder, mixed F3 1.60 [place] [address] [id number] [address] [place] [address] Jun, Fibromyalgia M79.7 and Bipol ar 1 disorder, mixed F31.60 [place] [address] [id number] [address] [place] [address] May, Bipolar 1 disorder, mixed F3 1.60 ; Generalized anxiety disorder F41.1 and Other crayon grader (current) drug therapy Z79.899 [facility] [address] [id number] [address] [place] [address] May, Bipolar 1 disorder, mixed F3 1.60 [facility] [address] [id number] [address] [place] [address] 14 May, 2017 Cough R05 and Body aches R52 [facility] [address] [id number] [address] [place] [address] 10 May, 2017 Bladder spasm N32.89 and Acu te cystitis without hematuria N30.00 [facility] [address] [address] 07 May, 2017 Bipolar 1 disorder, mixed F3 1.60 [facility] [address] [address] 30 Apr, 2017 [place] [address] [place] [address] Apr, Major depressive disorder, r ecurrent episode, moderate F33.1 and Encounter for immunization Z23 [place] [address] [address] Apr, Bipolar 1 disorder, mixed F3 1.60 [place] [address] [address] Apr, Bipolar 1 disorder, mixed F3 1.60 [place] [address] [address] 16 Apr, 2017 Bipolar 1 disorder, mixed F3 1.60 [place] [address] [address] Apr, Yeast vaginitis B37.3 [place] [address] [address] 09 Apr, 2017 Bipolar 1 disorder, mixed F3 1.60 [facility] [address] [address] 07 Apr, [address] for immunization Z23 [facility] [address] [address] Apr, Bipolar 1 disorder, mixed F3 1.60 [place] [address] [place] [id number] Mar, Bipolar 1 disorder, mixed F3 1.60 [place] [address] [address] Mar, Bipolar 1 disorder, mixed F3 1.60 [place] [address] [address] Mar, Imbalance R26.89 [address] Encount er for immunization Z23 [place] [address] [place] [address] 18 Mar, 2017 Generalized anxiety disorder F41.1 [place] [address] [address] Mar, Bipolar 1 disorder, mixed F3 1.60 [place] [address] [address] Mar, Generalized anxiety disorder F41.1 [place] [address] [place] [address] Mar, Bipolar 1 disorder, mixed F3 1.60 [place] [address] [address] Mar, Bipolar 1 disorder, mixed F3 1.60 [place] [address] [address] Feb, Bipolar 1 disorder, mixed F3 1.60 [place] [address] [address] Feb, Bipolar 1 disorder, mixed F3 1.60 and Generalized anxiety disorder F41.1 [place] [address] [address] Feb, Gastritis without bleeding, unspecified chronicity, unspecified gastritis type K29.70 ; Hammer toe of right foot M20.41 and Other viral warts B07.8 [place] [address] [address] 20 Feb, 2017 Bipolar 1 disorder, mixed F3 1.60 [place] [address] [address] 13 Feb, 2017 Bipolar 1 disorder, mixed F3 1.60 [place] [address] [place] [id number] [address] [place] [address] 05 Feb, 2017 Bipolar 1 disorder, mixed F3 1.60 [facility] [address] [id number] [address] [place], [place] [address] 31 Jan, 2017 Encounter for screening mamm ogram for breast cancer Z12.31 ; Other viral warts B07.8 and Allergic rhinitis J30.9 [facility] [address] [id number] [address] [place] [address] Jan, Bipolar 1 disorder, mixed F3 1.60 [facility] [address] [id number] [address] [place] [address] Jan, Bipolar 1 disorder, mixed F3 1.60 [place] [address] [place] [id number] [place] [address] 14 Jan, 2017 [place] [address] [place] [id number] [place] [address] Jan, Bipolar 1 disorder, mixed F3 1.60 [place] [address] [id number] [address] [place] [address] Jan, Bipolar 1 disorder, mixed F3 1.60 [place] [address] [place] [id number] [place] [address] 02 Jan, 2017 Allergic rhinitis J30.9 ; He maturia R31.9 and Colon cancer screening Z12.11 [facility] [address] [id number] [address] [place] [address] Dec, Bipolar 1 disorder, mixed F3 1.60 [place] [address] [id number] [address] [place] [address] 18 Dec, 2016 Bipolar 1 disorder, mixed F3 1.60 ; Generalized anxiety disorder F41.1 and Other crayon grader (current) drug therapy Z79.899 [facility] [address] [id number] [address] [place] [address] 17 Dec, 2016 Bipolar 1 disorder, mixed F3 1.60 [place] [address] [place] [id number] [place] [address] Dec, Bipolar 1 disorder, mixed F3 1.60 [facility] [address] [id number] [address] [place] [address] Dec, Bipolar 1 disorder, mixed F3 1.60 [facility] [address] [id number] [address] [place] [address] Dec, Low back pain M54.5 and Recu rrent urinary tract infection N39.0 [facility] [address] [id number] [address] [place] [address] Nov, Bipolar 1 disorder, mixed F3 1.60 [facility] [address] [id number] [address] [place] [address] Nov, Bipolar 1 disorder, mixed F3 1.60 [facility] [address] [id number] [address] [place] [address] Nov, Bipolar 1 disorder, mixed F3 1.60 [facility] [address] [id number] [address] [place] [address] Nov, Bipolar 1 disorder, mixed F3 1.60 [facility] [address] [id number] [address] [place] [address] Nov, [facility] [address] [id number] [address] [place] [address] Nov, Anesthesia of skin R20.0 ; F requent UTI N39.0 ; Tobacco abuse Z72.0 and Colon cancer screening Z12.11 [facility] [address] [id number] [address] [place] [address] Nov, Bipolar 1 disorder, mixed F3 1.60 [facility] [address] [id number] [address] [place] [address] October, Bipolar 1 disorder, mixed F3 1.60 [facility] [address] [id number] [address] [place] [address] October, Bipolar 1 disorder, mixed F3 1.60 [facility] [address] [id number] [address] [place] [address] October, Bipolar 1 disorder, mixed F3 1.60 [facility] [address] [place] [id number] [address] [place] [address] October, Bipolar 1 disorder, mixed F3 1.60 [facility] [address] [place] [id number] [place] [address] October, Bipolar 1 disorder, mixed F3 1.60 [facility] [address] [place] [id number] [place] [address] October, Cervicalgia M54.2 and Bipola r 1 disorder, mixed F31.60 [place] [address] [place] [id number] [place] [address] October, Hypertension I10 ; Hyperlipi demia, unspecified hyperlipidemia type E78.5 and Family history of thyroid disease Z83.49 [place] [address] [place] [id number] [place] [address] October, [place] [address] [place] [id number] [place] [address] October, Hypertension I10 ; Hyperlipi demia, unspecified hyperlipidemia type E78.5 and Family history of thyroid problem Z83.49 [place] [address] [place] [id number] [place] [address] October, Bipolar 1 disorder, mixed F3 1.60 [facility] [address] [id number] [address] [place] [address] Sep, Bipolar 1 disorder, mixed F3 1.60 [place] [address] [place] [id number] [place] [address] Sep, Bipolar 1 disorder, mixed F3 1.60 [facility] [address] [place] [id number] [address] [place] [address] Sep, Bipolar 1 disorder, mixed F3 1.60 [place] [address] [address] Sep, History of colon polyps Z86. 010 and Hematochezia K92.1 [place] [address] [place] [id number] [address] [place] [address] Sep, Major depressive disorder, r ecurrent episode, moderate F33.1 [place] [address] [address] Sep, Bipolar 1 disorder, mixed F3 1.60 [place] [address] [address] Aug, Hot flashes due to menopause N95.1 [place] [address] [address] Aug, Bipolar 1 disorder, mixed F3 1.60 [place] [address] [address] Aug, [place] [address] [address] Aug, Bipolar 1 disorder, mixed F3 1.60 [place] [address] [address] Aug, Bipolar 1 disorder, mixed F3 1.60 [place] [address] [address] Aug, Hot flashes due to menopause N95.1 ; Cervicalgia M54.2 and Ataxia R27.0 [facility] [id number] [place] [address] Jul, Bipolar 1 disorder, mixed F3 1.60 [place] [address] [place] [id number] [place] [address] Jul, Bipolar 1 disorder, mixed F3 1.60 [place] [address] [address] Jul, Bipolar 1 disorder, mixed F3 1.60 [place] [address] [address] 13 Jul, 2016 Bipolar 1 disorder, mixed F3 1.60 [place] [address] [place] [address] 10 Jul, 2016 Bipolar 1 disorder, mixed F3 1.60 [place] [address] [place] [address] 08 Jul, 2016 Cervicalgia M54.2 ; Tremor R 25.1 ; Hearing abnormally acute, unspecified laterality H93.239 ; Alopecia L65.9 ; Encounter for immunization Z23 and Family history of thyroid disease Z83.49 [place] [address] [place] [id number] 06 Jul, 2016 Bipolar 1 disorder, mixed F3 1.60 [place] [address] [place] [address] Jun, [place] [address] [place] [address] Jun, Hearing disorder, unspecifie d laterality H93.299 [place] [address] [place] [address] Jun, Bipolar 1 disorder, mixed F3 1.60 [place] [address] [address] Jun, Bipolar 1 disorder, mixed F3 1.60 [place] [address] [address] Jun, Allergic rhinitis J30.9 [place] [address] [address] Jun, Bipolar 1 disorder, mixed F3 1.60 [place] [address] [address] Jun, Bipolar 1 disorder, mixed F3 1.60 [place] [address] [place] [address] [place] [address] Jun, Allergic rhinitis J30.9 [facility] [address] [id number] [address] [place] [address] Jun, Allergic rhinitis J30.9 [facility] [address] [id number] [address] [place] [address] Jun, Bipolar 1 disorder, mixed F3 1.60 [facility] [address] [id number] [address] [place] [address] May, Bipolar 1 disorder, mixed F3 1.60 [facility] [address] [id number] [address] [place] [address] May, Bipolar 1 disorder, mixed F3 1.60 [facility] [address] [id number] [address] [place] [address] May, [facility] [address] [id number] [address] [place] [address] May, Bipolar 1 disorder, mixed F3 1.60 [facility] [address] [id number] [address] [place] [address] May, Bipolar 1 disorder, mixed F3 1.60 [facility] [address] [id number] [address] [place] [address] May, [facility] [address] [id number] [address] [place] [address] May, [facility] [address] [id number] [address] [place] [address] May, [facility] [address] [id number] [address] [place] [address] May, Abdominal pain, unspecified location R10.9 [facility] [address] [id number] [address] [place] [address] May, [facility] [address] [id number] [address] [place] [address] Apr, Hematuria R31.9 ; Ataxia R27 .0 and Hearing loss, unspecified laterality H91.90 [facility] [address] [address] Apr, Bipolar 1 disorder, mixed F3 1.60 [facility] [address] [place] [address] Apr, Acute effusion of both middl e ears H65.193 [facility] [address] [address] Apr, Hematuria R31.9 and Pyelonep hritis N12 [place] [address] [address] Apr, [place] [address] [address] Mar, Bipolar 1 disorder, mixed F3 1.60 [facility] [address] [address] Mar, [facility] [address] [address] Mar, Bipolar 1 disorder, mixed F3 1.60 [place] [address] [address] Mar, Bipolar 1 disorder, mixed F3 1.60 [facility] [address] [address] Mar, Encounter for immunization Z 23 and Gastritis without bleeding, unspecified chronicity, unspecified gastritis type K29.70 [facility] [address] [address] Mar, Bipolar 1 disorder, mixed F3 1.60 and Grief F43.20 [place] [address] [address] Mar, Gastritis without bleeding, unspecified chronicity, unspecified gastritis type K29.70 [place] [address] [id number] [address] [place] [address] 05 Mar, 2016 Bipolar 1 disorder, mixed F3 1.60 [place] [address] [id number] [address] [place] [address] 05 Mar, 2016 Gastritis without bleeding, unspecified chronicity, unspecified gastritis type K29.70 [facility] [address] [place] [id number] [address] [place] [address] Mar, [place] [address] [place] [id number] [address] [place] [address] Feb, Bipolar 1 disorder, mixed F3 1.60 [place] [address] [place] [address] Feb, Bipolar 1 disorder, mixed F3 1.60 and Grief F43.20 [place] [address] [address] Feb, Gastritis without bleeding, unspecified chronicity, unspecified gastritis type K29.70 [place] [address] [place] [id number] [address] [place] [address] 14 Feb, 2016 Bipolar 1 disorder, mixed F3 1.60 [facility] [address] [place] [id number] [address] [place] [address] 09 Feb, 2016 Gastroesophageal reflux dise ase, esophagitis presence not specified K21.9 [facility] [address] [place] [id number] [address] [place] [address] Jan, Bipolar 1 disorder, mixed F3 1.60 [facility] [address] [place] [id number] [address] [place] [address] Jan, Bipolar 1 disorder, mixed F3 1.60 and Unsteady gait R26.81 [facility] [address] [place] [id number] [address] [place] [address] Jan, Bipolar 1 disorder, mixed F3 1.60 [facility] [address] [place] [id number] [address] [place] [address] Jan, Bipolar 1 disorder, mixed F3 1.60 and Other crayon grader (current) drug therapy Z79.899 [place] [address] [id number] [address] [place] [address] Jan, Bipolar 1 disorder, mixed F3 1.60 [place] [address] [place] [id number] [address] [place] [address] Jan, Bipolar 1 disorder, mixed F3 1.60 [place] [address] [place] [id number] [address] [place] [address] Jan, Bipolar 1 disorder, mixed F3 1.60 ; Grief F43.20 and Other crayon grader (current) drug therapy Z79.899 [place] [address] [place] [id number] [address] [place] [address] Jan, Bipolar 1 disorder, mixed F3 1.60 [place] [address] [place] [address] Dec, [place] [address] [place] [id number] [address] [place] [address] Dec, Bipolar 1 disorder, mixed F3 1.60 ; Vitamin D deficiency, unspecified E55.9 ; H/O allergic rhinitis Z87.09 ; Other chronic pain G89.29 and Dorsalgia, unspecified M54.9 [place] [address] [place] [address] Dec, [place] [address] [place] [id number] [address] [place] [address] Dec, Bipolar 1 disorder, mixed F3 1.60 [place] [address] [place] [id number] [address] [place] [address] Dec, Major depressive disorder, r ecurrent episode, moderate F33.1 [place] [address] [place] [id number] [address] [place] [address] Dec, Major depressive disorder, r ecurrent episode, moderate F33.1 [place] [address] [place] [address] Nov, [facility] [address] [address] Nov, Bipolar 1 disorder, mixed F3 1.60 [facility] [address] [address] Nov, Major depressive disorder, r ecurrent episode, moderate F33.1 [facility] [address] [address] Nov, Cervicalgia M54.2 ; Arthralg ia of hip, unspecified laterality M25.559 ; Allergic rhinitis J30.9 and Hormone replacement therapy Z79.890 [facility] [address] [place] [id number] [place] [address] Nov, Other seasonal allergic rhin itis J30.2 [place] [address] [address] October, Major depressive disorder, r ecurrent episode, moderate F33.1 [place] [address] [address] October, Major depressive disorder, r ecurrent episode, moderate F33.1 and Arthralgia of hip, unspecified laterality M25.559 [place] [address] [address] October, Grief F43.20 ; Hypertension I10 ; Hyperlipidemia, unspecified hyperlipidemia type E78.5 ; Other chronic pain G89.29 and Allergic rhinitis, unspecified allergic rhinitis type J30.9 [place] [address] [address] October, Major depressive disorder, r ecurrent episode, moderate F33.1 [place] [address] [place] [id number] [address] [place] [address] Sep, Major depressive disorder, r ecurrent episode, moderate F33.1 [facility] [address] [id number] [address] [place] [address] Sep, [facility] [address] [id number] [address] [place] [address] Sep, Major depressive disorder, r ecurrent episode, moderate F33.1 [facility] [address] [id number] [address] [place] [address] Sep, Grief F43.20 [facility] [address] [id number] [address] [place] [address] Aug, Major depressive disorder, r ecurrent episode, moderate F33.1 [place] [address] [id number] [address] [place] [address] Aug, Bipolar 1 disorder, mixed F3 1.60 [place] [address] [id number] [address] [place] [address] Aug, Allergic rhinitis J30.9 ; Ce rvicalgia M54.2 and Low back pain M54.5 [facility] [address] [id number] [address] [place] [address] Aug, Major depressive disorder, r ecurrent episode, moderate F33.1 [facility] [address] [id number] [address] [place] [address] Aug, Sinusitis J32.9 and Tobacco 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 [facility] [address] [id number] [address] [place] [address] Aug, [facility] [address] [id number] [address] [place] [address] Aug, Depressive disorder, not els ewhere classified F32.9 ; Hormone replacement therapy Z79.[address] scan, head R93.0 [place] [address] [id number] [address] [place] [address] Aug, Major depressive disorder, r ecurrent episode, moderate F33.1 [facility] [address] [place] [id number] [address] [place] [address] Jul, Major depressive disorder, r ecurrent episode, moderate F33.1 [facility] [address] [id number] [address] [place] [address] Jul, Abdominal pain R10.9 and Hyp ertension I10 [facility] [address] [place] [id number] [address] [place] [address] Jul, [facility] [address] [place] [id number] [address] [place] [address] Jul, Major depressive disorder, r ecurrent episode, moderate F33.1 [facility] [address] [address] 04 Jul, 2015 [facility] [address] [address] Jul, [facility] [address] [place] [id number] [address] [place] [address] Jun, [facility] [address] [place] [id number] [address] [place] [address] Jun, Depressive disorder, not els ewhere classified F32.9 [facility] [address] [place] [id number] [address] [place] [address] Jun, [facility] [address] [place] [id number] [address] [place] [address] Jun, [facility] [address] [place] [id number] [address] [place] [address] Jun, Arthralgia of hip, unspecifi ed laterality M25.559 ; Bruising, spontaneous R23.3 and Night sweats R61 [facility] [address] [place] [id number] [address] [place] [address] Jun, [facility] [address] [place] [id number] [address] [place] [address] Jun, [facility] [address] [id number] [address] [place] [address] May, [facility] [address] [id number] [address] [place] [address] May, Myalgia M79.1 and Screening, lipid Z13.220 [facility] [address] [id number] [address] [place] [address] Apr, Status post cervical spinal fusion Z98.1 ; Fibromyalgia M79.7 and Unsteady gait R26.81 [facility] [address] [id number] [address] [place] [address] Nov, [facility] [address] [id number] [address] [place] [address] Nov, [facility] [address] [id number] [address] [place] [address] October, [facility] [address] [id number] [address] [place] [address] October, [facility] [address] [id number] [address] [place] [address] October, [facility] [address] [id number] [address] [place] [address] October, [facility] [address] [id number] [address] [place] [address] October, [facility] [address] [id number] [address] [place] [address] October, Dysuria 788.1 ; Nausea 787.0 2 and Urinary tract infection 599.0 [facility] [address] [id number] [address] [place] [address] Sep, [facility] [address] [id number] [address] [place] [address] Sep, [facility] [address] [id number] [address] [place] [address] Aug, [facility] [address] [id number] [address] [place] [address], [place] [address] 25 Aug, 2014 [facility] [address] [id number] [address] [place] [address], [place] [address] 24 Aug, 2014 [facility] [address] [id number] [address] [place] [address], [place] [address] 24 Aug, 2014 [facility] [address] [id number] [address] [place] [address], [place] [address] 23 Aug, 2014 [facility] [address] [id number] [address] [place] [address], [place] [address] 19 Aug, 2014 [facility] [address] [id number] [address] [place] [address], [place] [id number] 19 Aug, 2014 [facility] [address] [id number] [address] [place] [address], [place] [address] 19 Aug, 2014 [facility] [address] [id number] [address] [place] [address], [place] [address] 19 Aug, 2014 [facility] [address] [id number] [address] [place] [address], [place] [id number] 18 Aug, 2014 [facility] [address] [id number] [address] [place] [address], [place] [address] 18 Aug, 2014 [facility] [address] [id number] [address] [place] [address], [place] [address] 13 Aug, 2014 [facility] [address] [id number] [address] [place] [address], [place] [id number] 13 Aug, 2014 [facility] [address] [id number] [address] [place] [address], [place] [address] 11 Aug, 2014 [facility] [address] [id number] [address] [place] [address], [place] [id number] 11 Aug, 2014 [facility] [address] [id number] [address] [place] [address], [place] [address] 06 Aug, 2014 [facility] [address] [id number] [address] [place] [address], [place] [address] Aug, 2014 [facility] [address] [id number] [address] [place] [address], [place] [address] Aug, 2014 [facility] [address] [id number] [address] [place] [address], [place] [address] Aug, 2014 [facility] [address] [id number] [address] [place] [address], [place] [address] Aug, [facility] [address] [id number] [address] [place] [address], [place] [address] Aug, [facility] [address] [id number] [address] [place] [address], [place] [address] Aug, [facility] [address] [id number] [address] [place] [address], [place] [address] Jul, 2014 [facility] [address] [id number] [address] [place] [address], [place] [address] Jul, 2014 [facility] [address] [id number] [address] [place] [address], [place] [address] Jul, 2014 [facility] [address] [id number] [address] [place] [address], [place] [address] Jul, 2014 [facility] [address] [id number] [address] [place] [address], [place] [address] Jul, 2014 [facility] [address] [id number] [address] [place] [address], [place] [id number] Jul, 2014 [facility] [address] [id number] [address] [place] [address], [place] [address] Jul, 2014 [facility] [address] [id number] [address] [place] [address], [place] [address] Jul, 2014 [facility] [address] [id number] [address] [place] [address], [place] [address] Jul, 2014 [facility] [address] [id number] [address] [place] [address], [place] [id number] Jul, 2014 [facility] [address] [id number] [address] [place] [address], [place] [address] Jul, 2014 [facility] [address] [id number] [address] [place] [address], [place] [address] Jul, 2014 [facility] [address] [id number] [address] [place] [address], [place] [address] Jul, 2014 [facility] [address] [id number] [address] [place] [address], [place] [address] Jul, [facility] [address] [id number] [address] [place] [address], [place] [address] Jun, [facility] [address] [id number] [address] [place] [address], [place] [address] Jun, [facility] [address] [id number] [address] [place] [address], [place] [address] Jun, [facility] [address] [id number] [address] [place] [address], [place] [address] Jun, [facility] [address] [id number] [address] [place] [address], [place] [address] Jun, [facility] [address] [id number] [address] [place] [address], [place] [address] Jun, [facility] [address] [id number] [address] [place] [address], [place] [address] May, [facility] [address] [id number] [address] [place] [address], [place] [address] May, [facility] [address] [id number] [address] [place] [address], [place] [address] May, [facility] [address] [id number] [address] [place] [address], [place] [address] May, [facility] [address] [id number] [address] [place] [address], [place] [address] May, [facility] [address] [id number] [address] [place] [address], [place] [address] May, [facility] [address] [id number] [address] [place] [address], [place] [address] Apr, [facility] [address] [id number] [address] [place] [address], [place] [address] Apr, [facility] [address] [id number] [address] [place] [address], [place] [address] Apr, [facility] [address] [id number] [address] [place] [address], [place] [address] Apr, [facility] [address] [id number] [address] [place] [address], [place] [address] Apr, [facility] [address] [id number] [address] [place] [address], [place] [address] Apr, [facility] [address] [id number] [address] [place] [address], [place] [address] Mar, [facility] [address] [id number] [address] [place] [address], [place] [address] Mar, [facility] [address] [id number] [address] [place] [address], [place] [address] Mar, [facility] [address] [id number] [address] [place] [address], [place] [address] Mar, [facility] [address] [id number] [address] [place] [address], [place] [address] Mar, [facility] [address] [id number] [address] [place] [address] Mar, [facility] [address] [id number] [address] [place] [address], [place] [address] Mar, [facility] [address] [id number] [address] [place] [address], [place] [address] Mar, [facility] [address] [id number] [address] [place] [address], [place] [address] Mar, [facility] [address] [id number] [address] [place] [address], [place] [address] Mar, [facility] [address] [id number] [address] [place] [address], [place] [id number] Mar, [facility] [address] [id number] [address] [place] [address], [place] [id number] Mar, [facility] [address] [id number] [address] [place] [address], [place] [id number] 30 Feb, 2014 [facility] [address] [id number] [address] [place] [address], [place] [id number] Feb, [facility] [address] [id number] [address] [place] [address], [place] [id number] Feb, [facility] [address] [id number] [address] [place] [address], [place] [id number] Feb, [facility] [address] [id number] [address] [place] [address], [place] [id number] Feb, [facility] [address] [id number] [address] [place] [address], [place] [id number] Feb, [facility] [address] [id number] [address] [place] [address], [place] [id number] Feb, [facility] [address] [id number] [address] [place] [address], [place] [id number] Jan, [facility] [address] [id number] [address] [place] [address], [place] [id number] Jan, [facility] [address] [id number] [address] [place] [address], [place] [id number] Jan, [facility] [address] [id number] [address] [place] [address], [place] [id number] Dec, [facility] [address] [id number] [address] [place] [address], [place] [id number] Dec, [facility] [address] [id number] [address] [place] [address], [place] [id number] Dec, [facility] [address] [id number] [address] [place] [address], [place] [id number] Dec, [facility] [address] [id number] [address] [place] [address], [place] [id number] Sep, [facility] [address] [id number] [address] [place] [address], [place] [id number] Sep, [facility] [address] [id number] [address] [place] [address], [place] [id number] Sep, [facility] [address] [id number] [address] [place] [address], [place] [id number] Sep, [facility] [address] [id number] [address] [place] [address], [place] [id number] Sep, [facility] [address] [id number] [address] [place] [address], [place] [id number] Sep, [facility] [address] [id number] [address] [place] [address], [place] [id number] Sep, [facility] [address] [id number] [address] [place] [address], [place] [id number] Sep, [facility] [address] [id number] [address] [place] [address], [place] [id number] Aug, [facility] [address] [id number] [address] [place] [address], [place] [id number] Aug, [facility] [address] [id number] [address] [place] [address], [place] [id number] May, [facility] [address] [id number] [address] [place] [address], [place] [id number] May, [facility] [address] [id number] [address] [place] [address], [place] [id number] Apr, [facility] [address] [id number] [address] [place] [address], [place] [id number] Apr, [facility] [address] [id number] [address] [place] [address], [place] [id number] Apr, [facility] [address] [id number] [address] [place] [address], [place] [id number] Apr, [facility] [address] [id number] [address] [place] [address], [place] [id number] Apr, [facility] [address] [id number] [address] [place] [address], [place] [id number] Apr, [facility] [address] [id number] [address] [place] [address], [place] [id number] May, [facility] [address] [id number] [address] [place] [address], [place] [id number] 18 May, 2012 [facility] [facility] [address] [id number] [address] [place] [address], [place] [id number] 15 May, 2012 [facility] [address] [id number] [address] [place] [address], [place] [id number] 15 May, 2012 [facility] [address] [id number] [address] [place] [address], [place] [id number] May, [facility] [address] [id number] [address] [place] [address], [place] [id number] May, [facility] [address] [id number] [address] [place] [address], [place] [id number] 13 Apr, 2012 [facility] [address] [id number] [address] [place] [address], [place] [id number] Apr, [facility] [address] [id number] [address] [place] [address], [place] [id number] Apr, [facility] [address] [id number] [address] [place] [address], [place] [id number] Apr, [facility] [address] [id number] [address] [place] [address], [place] [id number] Apr, [facility] [address] [id number] [address] [place] [address], [place] [id number] Apr, [facility] [address] [id number] [address] [place] [address], [place] [id number] Apr, [facility] [address] [id number] [address] [place] [address], [place] [id number] Apr, [facility] [address] [id number] [address] [place] [address], [place] [id number] Apr, [facility] [address] [id number] [address] [place] [address], [place] [id number] Apr, [facility] [address] [id number] [address] [place] [address], [place] [id number] Mar, [facility] [address] [id number] [address] [place] [address], [place] [id number] Mar, [facility] [address] [id number] [address] [place] [address], [place] [id number] Mar, [facility] [address] [id number] [address] [place] [address], [place] [id number] Mar, [facility] [address] [id number] [address] [place] [address], [place] [id number] Mar, [facility] [address] [id number] [address] [place] [address], [place] [id number] Mar, [facility] [address] [id number] [address] [place] [address], [place] [id number] Mar, [facility] [address] [id number] [address] [place] [id number] Mar, [facility] [address] [id number] [address] [place] [address], [place] [id number] Mar, [facility] [address] [id number] [address] [place] [address], [place] [id number] 25 Feb, 2012 [facility] [address] [id number] [address] [place] [address], [place] [id number] 16 Feb, 2012 [facility] [address] [id number] [address] [place] [address] [place] [id number] Feb, [facility] [address] [id number] [address] [place] [address], [place] [id number] Jan, [facility] [address] [id number] [address] [place] [address], [place] [id number] Jan, [facility] [address] [id number] [address] [place] [address], [place] [id number] Jan, [facility] [address] [id number] [address] [place] [address], [place] [id number] Jan, [facility] [address] [id number] [address] [place] [address], [place] [id number] Jan, [facility] [address] [id number] [address] [place] [address], [place] [id number] Jan, [facility] [address] [id number] [address] [place] [address], [place] [id number] Jan, [facility] [address] [id number] [address] [place] [address], [place] [id number] Jan, [facility] [address] [id number] [address] [place] [address], [place] [id number] Jan, [facility] [address] [id number] [address] [place] [address], [place] [id number] Jan, [facility] [address] [id number] [address] [place] [address], [place] [id number] Dec, [facility] [address] [id number] [address] [place] [address], [place] [id number] Dec, [facility] [address] [id number] [address] [place] [address], [place] [id number] Dec, [facility] [address] [id number] [address] [place] [address], [place] [id number] Dec, [facility] [address] [id number] [address] [place] [address], [place] [id number] Nov, [facility] [address] [id number] [address] [place] [address], [place] [id number] 08 Nov, 2011 [facility] [address] [id number] [address] [place] [address], [place] [id number] 07 Nov, 2011 [facility] [address] [id number] [address] [place] [address], [place] [id number] October, [facility] [address] [id number] [address] [place] [address], [place] [id number] October, [facility] [address] [id number] [address] [place] [address], [place] [id number] October, [facility] [address] [id number] [address] [place] [address], [place] [id number] October, [facility] [address] [id number] [address] [place] [address], [place] [id number] October, [facility] [address] [id number] [address] [place] [address], [place] [id number] October, [facility] [address] [id number] [address] [place] [address], [place] [id number] Aug, [facility] [address] [id number] [address] [place] [address], [place] [id number] Mar, [facility] [address] [id number] [address] [place] [address], [place] [id number] 16 Nov, 2010 [facility] [address] [id number] [address] [place] [address], [place] [id number] May, [facility] [address] [id number] [address] [place] [address], [place] [id number] May, [facility] [address] [id number] [address] [place] [address], [place] [id number] Apr, [facility] [address] [id number] [address] [place] [address], [place] [id number] 15 Mar, 2010 [facility] [address] [id number] [address] [place] [address], [place] [id number] Mar, IMMUNIZATIONS No Known Immunizations SOCIAL HISTORY Never Assessed REASON FOR VISIT Medication refill request PLAN OF CARE VITAL SIGNS MEDICATIONS Medication Instructions Dosage Frequency Start Date End Date Duration S alexandr Depakote ER 500 mg Orally at bedtime 2 tabs 30 days Active Fetzima 120 mg Orally Once a day TAKE 1 CAPSULE BY MOUTH DAILY 24h 30 days Active HydrOXYzine HCl 10 mg Orally 3 times a day as needed 1 tablet Feb, 30 days Active RESULTS No Results [...]
--- OUTSIDE RECORDS SUMMARY | 2019-06-19 05:25 | XMS REPORT ---
Author Author Sydnie SQUIRES Organization [facility] Address [address] [place] [address] Care Team Providers Care Oracle Applications Developer Name Role Phone MIRIAN SQUIRES Unavailable PROBLEMS Type Condition ICD9-CM Code ZVQ47-VG Code Onset Dates Condition S tatus SNOMED Code Problem Hormone replacement therapy Z79.890 Ac tive 413457591 Problem Abnormal CT scan, head R93.0 Active 894743674 Problem Sensorineural hearing loss (SNHL) of both ears H90 .3 Active 106790500 Problem Bruising, spontaneous R23.3 Active 148260522 Problem Generalized anxiety disorder F41.1 A ctive 96464564 Problem Arthralgia of hip, unspecified laterality M25.559 Active 56425776 Problem Hematuria, unspecified type R31.9 Ac tive 81236608 Problem Night sweats R61 Active 7170234 0 Problem Hammer toe of right foot M20.41 Activ e 248656036 Problem Major depressive disorder, recurrent episode, moderate F33.1 Active 104981120 Problem Imbalance R26.89 Active 805630642 Problem Slow transit constipation K59.01 Acti ve 00941281 Problem Plantar wart of right foot B07.0 Act mitchell [id number] Problem Grief F43.20 Active 46897557 Problem Hyperlipidemia, unspecified hyperlipidemia type E7 8.5 Active 43056268 Problem Hypertension I10 Active 1237071 3 Problem Bladder spasm N32.89 Active 741360 006 Problem Fibromyalgia M79.7 Active 6185613 7 Problem Sciatica of left side M54.32 Active 18934683 Problem Acute left-sided low back pain with left-sided sciatica M54.42 Active 508709743 Problem Bipolar 1 disorder, mixed F31.60 Acti ve 81522816 Problem Ataxia R27.0 Active 77029361 Problem Other chronic pain G89.29 Active 8 2365434 Problem Gastritis without bleeding, unspecified chronicity, unspecified gastritis type K29.70 Active 321239274 Problem Hot flashes due to menopause N95.1 A ctive 891597434 Problem History of colon polyps Z86.010 Active 288661844 Problem Hearing loss, unspecified laterality H91.90 Active 47697482 Problem Allergic rhinitis J30.9 Active 61 824035 ALLERGIES Substance Reaction Event Type Date Status Morphine Sulfate Unknown Drug Allergy May, Active Iodine Unknown Drug Allergy May, Active Lyrica 75 Mg Capsule "felt weird" Non Drug Allergy May, Act mitchell ENCOUNTERS Encounter Location Date Diagnosis [facility] [address] [facility] [id number] [address] [place] [address] 14 Aug, 2018 [facility] [address] [facility] [id number] [address] [place] [address] Jun, [facility] [address] [facility] [id number] [address] [place] [address] Jun, [facility] [address] [facility] [id number] [address] [place] [address] Jun, [facility] [address] [facility] [id number] [address] [place] [address] Jun, [facility] [address] [facility] [id number] [address] [place] [address] Jun, [facility] [address] [facility] [id number] [address] [place] [address] May, [facility] [address] [facility] [id number] [address] [place] [address] May, Bipolar 1 disorder, mixed F3 1.60 and Generalized anxiety disorder F41.1 [facility] [address] [facility] [id number] [address] [place] [address] May, Bipolar 1 disorder, mixed F3 1.60 [facility] [address] [facility] [id number] [address] [place] [address] 10 May, 2018 Allergic rhinitis J30.9 [facility] [address] [facility] [id number] [address] [place] [address] May, Bipolar 1 disorder, mixed F3 1.60 [facility] [address] [place] [id number] [address] [place] [address] May, [facility] [address] [place] [id number] [address] [place] [address] Apr, Allergic rhinitis J30.9 ; Dy sfunction of both eustachian tubes H69.83 ; History of bladder surgery Z98.890 and Cervicalgia M54.2 [facility] [address] [place] [id number] [address] [place] [address] Mar, Bipolar 1 disorder, mixed F3 1.60 [place] [address] [place] [address] Mar, [place] [address] [address] Mar, Slow transit constipation K5 9.01 ; Encounter for immunization Z23 and Generalized anxiety disorder F41.1 [facility] [address] [place] [id number] [address] [place] [address] 27 Feb, 2018 Bipolar 1 disorder, mixed F3 1.60 [place] [address] [place] [id number] [address] [place] [address] 26 Feb, 2018 Allergic rhinitis J30.9 [place] [address] [place] [id number] [address] [place] [address] 24 Feb, 2018 Bipolar 1 disorder, mixed F3 1.60 [facility] [address] [place] [id number] [address] [place] [address] 20 Feb, 2018 Bipolar 1 disorder, mixed F3 1.60 and Generalized anxiety disorder F41.1 [facility] [address] [facility] [id number] [address] [place] [address] 13 Feb, 2018 Bipolar 1 disorder, mixed F3 1.60 [place] [address] [place] [id number] [address] [place] [address] 11 Feb, 2018 Allergic rhinitis J30.9 [facility] [address] [facility] [id number] [address] [place] [address] Feb, [facility] [address] [facility] [id number] [address] [place] [address] Jan, Bipolar 1 disorder, mixed F3 1.60 [facility] [address] [facility] [id number] [address] [place] [address] Jan, Low back pain M54.5 ; Hyperl ipidemia, unspecified hyperlipidemia type E78.5 and Bipolar 1 disorder, mixed F31.60 [facility] [address] [facility] [id number] [address] [place] [address] Jan, Bipolar 1 disorder, mixed F3 1.60 [facility] [address] [place] [id number] [address] [place] [address] Jan, Bipolar 1 disorder, mixed F3 1.60 [facility] [address] [place] [id number] [address] [place] [address] Jan, Bipolar 1 disorder, mixed F3 1.60 [facility] [address] [place] [id number] [address] [place] [address] Jan, Bipolar 1 disorder, mixed F3 1.60 [facility] [address] [place] [id number] [address] [place] [address] Dec, Bipolar 1 disorder, mixed F3 1.60 ; Generalized anxiety disorder F41.1 and Other medical terminologist (current) drug therapy Z79.899 [facility] [address] [facility] [id number] [address] [place] [address] Dec, Other medical terminologist (current) dr ug therapy Z79.899 [facility] [address] [facility] [id number] [address] [place] [address] Dec, Bipolar 1 disorder, mixed F3 1.60 [facility] [address] [facility] [id number] [address] [place] [address] Dec, Bipolar 1 disorder, mixed F3 1.60 [facility] [address] [facility] [id number] [address] [place] [address] Nov, Bipolar 1 disorder, mixed F3 1.60 [facility] [address] [place] [id number] [place], [place] [address] Nov, Bipolar 1 disorder, mixed F3 1.60 [facility] [address] [place] [id number] [address] [place] [address] Nov, Bipolar 1 disorder, mixed F3 1.60 [facility] [address] [place] [id number] [address] [place] [address] Nov, Allergic rhinitis J30.9 [facility] [address] [place] [id number] [place] [address] Nov, Allergic rhinitis J30.9 [facility] [address] [place] [id number] [place] [address] Nov, [facility] [address] [address] Nov, Bipolar 1 disorder, mixed F3 1.60 [facility] [address] [place] [id number] [address] [place] [address] Nov, Fibromyalgia M79.7 and Aller gic rhinitis J30.9 [facility] [address] [place] [id number] [address] [place] [address] October, Bipolar 1 disorder, mixed F3 1.60 [facility] [address] [place] [id number] [address] [place] [address] October, Acute nasopharyngitis J00 [facility] [address] [place] [id number] [address] [place] [address] October, Bitten or stung by nonvenomo us insect and other nonvenomous arthropods, initial encounter W57.XXXA and Insect bite (nonvenomous) of abdominal wall, initial encounter S30.861A [facility] [address] [place] [id number] [address] [place] [address] October, Insect bite (nonvenomous) of abdominal wall, initial encounter S30.861A ; Bitten or stung by nonvenomous insect and other nonvenomous arthropods, initial encounter W57.XXXA ; Allergic rhinitis J30.9 and Low back pain M54.5 [facility] [address] [facility] [id number] [address] [place] [address] October, Bipolar 1 disorder, mixed F3 1.60 [facility] [address] [place] [id number] [address] [place] [address] October, [facility] [address] [place] [id number] [address] [place] [address] October, [facility] [address] [place] [id number] [address] [place] [address] October, Bipolar 1 disorder, mixed F3 1.60 [facility] [address] [place] [id number] [address] [place] [address] Sep, Bipolar 1 disorder, mixed F3 1.60 [facility] [address] [facility] [id number] [address] [place] [address] Sep, Other chronic pain G89.29 [facility] [address] [place] [id number] [address] [place] [address] Sep, [facility] [address] [place] [id number] [address] [place] [address] Sep, Bipolar 1 disorder, mixed F3 1.60 [facility] [address] [place] [id number] [address] [place] [address] Sep, Allergic rhinitis J30.9 and Sciatica of left side M54.32 [facility] [address] [place] [id number] [address] [place] [address] Sep, Bipolar 1 disorder, mixed F3 1.60 [facility] [address] [facility] [id number] [address] [place] [address] Sep, Bipolar 1 disorder, mixed F3 1.60 and Generalized anxiety disorder F41.1 [facility] [address] [id number] [address] [place] [address] Aug, [facility] [address] [facility] [id number] [address] [place] [address] Aug, Bipolar 1 disorder, mixed F3 1.60 [facility] [address] [facility] [id number] [address] [place] [address] Aug, Bipolar 1 disorder, mixed F3 1.60 [facility] [address] [facility] [id number] [address] [place] [address] Aug, [facility] [address] [facility] [id number] [address] [place] [address] Aug, Generalized anxiety disorder F41.1 [facility] [address] [facility] [id number] [address] [place] [address] Aug, Bipolar 1 disorder, mixed F3 1.60 [facility] [address] [facility] [id number] [address] [place] [address] Aug, Plantar wart of right foot B 07.0 [facility] [address] [facility] [id number] [address] [place] [address] Aug, Bipolar 1 disorder, mixed F3 1.60 [facility] [address] [facility] [id number] [address] [place] [address] Jul, Bipolar 1 disorder, mixed F3 1.60 [facility] [address] [facility] [id number] [address] [place] [address] Jul, [facility] [address] [facility] [id number] [address] [place] [address] 14 Jul, 2017 Bipolar 1 disorder, mixed F3 1.60 [facility] [address] [facility] [id number] [address] [place] [address] 09 Jul, 2017 Generalized anxiety disorder F41.1 [facility] [address] [facility] [id number] [address] [place] [address] 07 Jul, 2017 Bipolar 1 disorder, mixed F3 1.60 [facility] [address] [place] [id number] [address] [place] [address] 07 Jul, 2017 Acute left-sided low back pa in with left-sided sciatica M54.42 [facility] [address] [place] [id number] [address] [place] [address] 05 Jul, 2017 Coccydynia M53.3 [facility] [address] [place] [id number] [address] [place] [address] Jun, Bipolar 1 disorder, mixed F3 1.60 [facility] [address] [place] [id number] [address] [place] [address] Jun, Acute nasopharyngitis J00 [facility] [address] [place] [id number] [place] [address] Jun, Bipolar 1 disorder, mixed F3 1.60 [place] [address] [place] [address] Jun, Fibromyalgia M79.7 [place] [address] [address] Jun, Bipolar 1 disorder, mixed F3 1.60 [place] [address] [address] Jun, Fibromyalgia M79.7 and Bipol ar 1 disorder, mixed F31.60 [place] [address] [place] [id number] [address] [place] [address] May, Bipolar 1 disorder, mixed F3 1.60 ; Generalized anxiety disorder F41.1 and 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 (current) drug therapy Z79.899 [place] [address] [place] [id number] [address] [place] [address] May, Bipolar 1 disorder, mixed F3 1.60 [facility] [address] [place] [id number] [address] [place] [address] May, Cough R05 and Body aches R52 [facility] [address] [address] 10 May, 2017 Bladder spasm N32.89 and Acu te cystitis without hematuria N30.00 [place] [address] [address] 07 May, 2017 Bipolar 1 disorder, mixed F3 1.60 [place] [address] [address] 30 Apr, 2017 [place] [address] [place] [address] Apr, Major depressive disorder, r ecurrent episode, moderate F33.1 and Encounter for immunization Z23 [place] [address] [address] Apr, Bipolar 1 disorder, mixed F3 1.60 [place] [address] [address] Apr, Bipolar 1 disorder, mixed F3 1.60 [place] [address] [address] 16 Apr, 2017 Bipolar 1 disorder, mixed F3 1.60 [place] [address] [address] 13 Apr, 2017 Yeast vaginitis B37.3 [place] [address] [address] 09 Apr, 2017 Bipolar 1 disorder, mixed F3 1.60 [facility] [address] [address] 07 Apr, [address]03[address] for immunization Z23 [place] [address] [address] 02 Apr, 2017 Bipolar 1 disorder, mixed F3 1.60 [place] [address] [address] Mar, Bipolar 1 disorder, mixed F3 1.60 [place] [address] [place] [address] Mar, Bipolar 1 disorder, mixed F3 1.60 [place] [address] [address] Mar, Imbalance R26.89 and Encount er for immunization Z23 [place] [address] [address] Mar, Generalized anxiety disorder F41.1 [place] [address] [address] Mar, Bipolar 1 disorder, mixed F3 1.60 [place] [address] [address] Mar, Generalized anxiety disorder F41.1 [place] [address] [address] Mar, Bipolar 1 disorder, mixed F3 1.60 [place] [address] [address] Mar, Bipolar 1 disorder, mixed F3 1.60 [place] [address] [address] Feb, Bipolar 1 disorder, mixed F3 1.60 [place] [address] [address] Feb, Bipolar 1 disorder, mixed F3 1.60 and Generalized anxiety disorder F41.1 [place] [address] [place] [id number] [place] [address] Feb, Gastritis without bleeding, unspecified chronicity, unspecified gastritis type K29.70 ; Hammer toe of right foot M20.41 and Other viral warts B07.8 [place] [address] [place] [id number] [address] [place] [address] Feb, Bipolar 1 disorder, mixed F3 1.60 [place] [address] [place] [address] 13 Feb, 2017 Bipolar 1 disorder, mixed F3 1.60 [place] [address] [place] [id number] [address] [place] [address] 05 Feb, 2017 Bipolar 1 disorder, mixed F3 1.60 [place] [address] [place] [id number] [place] [address] 31 Jan, 2017 Encounter for screening mamm ogram for breast cancer Z12.31 ; Other viral warts B07.8 and Allergic rhinitis J30.9 [place] [address] [facility] [id number] [address] [place] [address] Jan, Bipolar 1 disorder, mixed F3 1.60 [place] [address] [place] [id number] [place] [address] Jan, Bipolar 1 disorder, mixed F3 1.60 [place] [address] [place] [id number] [place] [address] 14 Jan, 2017 [place] [address] [place] [id number] [place] [address] Jan, Bipolar 1 disorder, mixed F3 1.60 [place] [address] [place] [id number] [address] [place] [address] 04 Jan, 2017 Bipolar 1 disorder, mixed F3 1.60 [place] [address] [place] [id number] [address] [place] [address] Jan, Allergic rhinitis J30.9 ; He maturia R31.9 and Colon cancer screening Z12.11 [place] [address] [facility] [id number] [address] [place] [address] Dec, Bipolar 1 disorder, mixed F3 1.60 [place] [address] [place] [id number] [address] [place] [address] 18 Dec, 2016 Bipolar 1 disorder, mixed F3 1.60 ; Generalized anxiety disorder F41.1 and 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 (current) drug therapy Z79.899 [place] [address] [place] [id number] [place] [address] Dec, Bipolar 1 disorder, mixed F3 1.60 [facility] [address] [facility] [id number] [address] [place] [address] Dec, Bipolar 1 disorder, mixed F3 1.60 [facility] [address] [facility] [id number] [address] [place] [address] Dec, Bipolar 1 disorder, mixed F3 1.60 [facility] [address] [place] [id number] [address] [place] [address] Dec, Low back pain M54.5 and Recu rrent urinary tract infection N39.0 [facility] [address] [place] [id number] [address] [place], [place] [address] Nov, Bipolar 1 disorder, mixed F3 1.60 [place] [address] [place] [id number] [address] [place] [address] Nov, Bipolar 1 disorder, mixed F3 1.60 [facility] [address] [place] [id number] [address] [place] [address] Nov, Bipolar 1 disorder, mixed F3 1.60 [facility] [address] [place] [id number] [address] [place] [address] Nov, Bipolar 1 disorder, mixed F3 1.60 [facility] [address] [place] [id number] [place] [address] Nov, [facility] [address] [place] [id number] [place], [place] [address] Nov, Anesthesia of skin R20.0 ; F requent UTI N39.0 ; Tobacco abuse Z72.0 and Colon cancer screening Z12.11 [facility] [address] [place] [id number] [place] [address] Nov, Bipolar 1 disorder, mixed F3 1.60 [facility] [address] [place] [id number] [address] [place] [address] October, Bipolar 1 disorder, mixed F3 1.60 [place] [address] [place] [id number] [address] [place] [address] October, Bipolar 1 disorder, mixed F3 1.60 [facility] [address] [address] October, Bipolar 1 disorder, mixed F3 1.60 [facility] [address] [address] October, Bipolar 1 disorder, mixed F3 1.60 [facility] [address] [address] October, Bipolar 1 disorder, mixed F3 1.60 [place] [address] [address] October, Cervicalgia M54.2 and Bipola r 1 disorder, mixed F31.60 [place] [address] [address] October, Hypertension I10 ; Hyperlipi demia, unspecified hyperlipidemia type E78.5 and Family history of thyroid disease Z83.49 [place] [address] [address] October, [place] [address] [address] October, Hypertension I10 ; Hyperlipi demia, unspecified hyperlipidemia type E78.5 and Family history of thyroid problem Z83.49 [place] [address] [place] [id number] [address] [place] [address] October, Bipolar 1 disorder, mixed F3 1.60 [place] [address] [address] Sep, Bipolar 1 disorder, mixed F3 1.60 [place] [address] [place] [id number] [address] [place] [address] Sep, Bipolar 1 disorder, mixed F3 1.60 [place] [address] [address] Sep, Bipolar 1 disorder, mixed F3 1.60 [facility] [address] [place] [address] Sep, History of colon polyps Z86. 010 and Hematochezia K92.1 [facility] [address] [address] Sep, Major depressive disorder, r ecurrent episode, moderate F33.1 [facility] [address] [address] Sep, Bipolar 1 disorder, mixed F3 1.60 [place] [address] [place] [address] Aug, Hot flashes due to menopause N95.1 [facility] [address] [address] Aug, Bipolar 1 disorder, mixed F3 1.60 [facility] [address] [address] Aug, [facility] [address] [place] [id number] Aug, Bipolar 1 disorder, mixed F3 1.60 [facility] [address] [address] Aug, Bipolar 1 disorder, mixed F3 1.60 [facility] [address] [place] [id number] Aug, Hot flashes due to menopause N95.1 ; Cervicalgia M54.2 and Ataxia R27.0 [facility] [address] [address] Jul, Bipolar 1 disorder, mixed F3 1.60 [facility] [address] [address] Jul, Bipolar 1 disorder, mixed F3 1.60 [place] [address] [address] Jul, Bipolar 1 disorder, mixed F3 1.60 [place] [address] [address] 13 Jul, 2016 Bipolar 1 disorder, mixed F3 1.60 [place] [address] [address] Jul, Bipolar 1 disorder, mixed F3 1.60 [place] [address] [address] 08 Jul, 2016 Cervicalgia M54.2 ; Tremor R 25.1 ; Hearing abnormally acute, unspecified laterality H93.239 ; Alopecia L65.9 ; Encounter for immunization Z23 and Family history of thyroid disease Z83.49 [place] [address] [address] Jul, Bipolar 1 disorder, mixed F3 1.60 [place] [address] [address] Jun, [place] [address] [place] [id number] Jun, Hearing disorder, unspecifie d laterality H93.299 [place] [address] [address] Jun, Bipolar 1 disorder, mixed F3 1.60 [place] [address] [address] Jun, Bipolar 1 disorder, mixed F3 1.60 [place] [address] [address] Jun, Allergic rhinitis J30.9 [place] [address] [address] Jun, Bipolar 1 disorder, mixed F3 1.60 [place] [address] [place] [id number] Jun, Bipolar 1 disorder, mixed F3 1.60 [facility] [address] [id number] [address] [place] [id number] Jun, Allergic rhinitis J30.9 [facility] [address] [id number] [address] [place] [id number] Jun, Allergic rhinitis J30.9 [facility] [address] [facility] [id number] [address] [place] [address] Jun, Bipolar 1 disorder, mixed F3 1.60 [facility] [address] [id number] [address] [place] [id number] May, Bipolar 1 disorder, mixed F3 1.60 [facility] [address] [facility] [id number] [address] [place] [id number] May, Bipolar 1 disorder, mixed F3 1.60 [facility] [address] [facility] [id number] [address] [place] [id number] May, [facility] [address] [id number] [address] [place] [address] May, Bipolar 1 disorder, mixed F3 1.60 [facility] [address] [facility] [id number] [address] [place] [address] May, Bipolar 1 disorder, mixed F3 1.60 [facility] [address] [facility] [id number] [address] [place] [address] May, [facility] [address] [facility] [id number] [address] [place] [address] May, [facility] [address] [facility] [id number] [address] [place] [address] May, [facility] [address] [facility] [id number] [address] [place] [address] May, Abdominal pain, unspecified location R10.9 [facility] [address] [facility] [id number] [address] [place] [address] May, [facility] [address] [place] [address] Apr, Hematuria R31.9 ; Ataxia R27 .0 and Hearing loss, unspecified laterality H91.90 [facility] [address] [facility] [id number] [address] [place] [address] Apr, Bipolar 1 disorder, mixed F3 1.60 [facility] [address] [place] [id number] [address] [place] [address] Apr, Acute effusion of both middl e ears H65.193 [place] [address] [address] Apr, Hematuria R31.9 and Pyelonep hritis N12 [facility] [address] [address] Apr, [place] [address] [address] Mar, Bipolar 1 disorder, mixed F3 1.60 [facility] [address] [address] Mar, [facility] [address] [address] Mar, Bipolar 1 disorder, mixed F3 1.60 [place] [address] [address] Mar, Bipolar 1 disorder, mixed F3 1.60 [facility] [address] [address] Mar, Encounter for immunization Z 23 and Gastritis without bleeding, unspecified chronicity, unspecified gastritis type K29.70 [facility] [address] [place] [id number] [address] [place] [address] 05 Mar, 2016 Bipolar 1 disorder, mixed F3 1.60 and Grief F43.20 [place] [address] [address] 05 Mar, 2016 Gastritis without bleeding, unspecified chronicity, unspecified gastritis type K29.70 [place] [address] [place] [id number] [address] [place] [address] Mar, Bipolar 1 disorder, mixed F3 1.60 [place] [address] [place] [id number] [place] [id number] Mar, Gastritis without bleeding, unspecified chronicity, unspecified gastritis type K29.70 [place] [address] [place] [id number] [address] [place] [address] Mar, [place] [address] [place] [address] Feb, Bipolar 1 disorder, mixed F3 1.60 [place] [address] [address] Feb, Bipolar 1 disorder, mixed F3 1.60 and Grief F43.20 [place] [address] [place] [id number] [address] [place] [address] Feb, Gastritis without bleeding, unspecified chronicity, unspecified gastritis type K29.70 [place] [address] [place] [id number] [address] [place] [address] 14 Feb, 2016 Bipolar 1 disorder, mixed F3 1.60 [facility] [address] [place] [id number] [address] [place] [address] 09 Feb, 2016 Gastroesophageal reflux dise ase, esophagitis presence not specified K21.9 [place] [address] [place] [id number] [address] [place] [address] Jan, Bipolar 1 disorder, mixed F3 1.60 [place] [address] [place] [id number] [address] [place] [address] Jan, Bipolar 1 disorder, mixed F3 1.60 and Unsteady gait R26.81 [place] [address] [place] [id number] [address] [place] [address] Jan, Bipolar 1 disorder, mixed F3 1.60 [facility] [address] [place] [id number] [address] [place] [address] Jan, Bipolar 1 disorder, mixed F3 1.60 and Other medical terminologist (current) drug therapy Z79.899 [facility] [address] [place] [id number] [address] [place] [address] Jan, Bipolar 1 disorder, mixed F3 1.60 [place] [address] [place] [id number] [address] [place] [address] Jan, Bipolar 1 disorder, mixed F3 1.60 [place] [address] [place] [id number] [place] [address] Jan, Bipolar 1 disorder, mixed F3 1.60 ; Grief F43.20 and Other medical terminologist (current) drug therapy Z79.899 [place] [address] [place] [id number] [address] [place] [address] Jan, Bipolar 1 disorder, mixed F3 1.60 [place] [address] [place] [address] Dec, [place] [address] [place] [address] Dec, Bipolar 1 disorder, mixed F3 1.60 ; Vitamin D deficiency, unspecified E55.9 ; H/O allergic rhinitis Z87.09 ; Other chronic pain G89.29 and Dorsalgia, unspecified M54.9 [place] [address] [place] [id number] [address] [place] [address] Dec, [place] [address] [place] [id number] [address] [place] [address] Dec, Bipolar 1 disorder, mixed F3 1.60 [place] [address] [place] [id number] [address] [place] [address] Dec, Major depressive disorder, r ecurrent episode, moderate F33.1 [place] [address] [place] [id number] [address] [place] [address] Dec, Major depressive disorder, r ecurrent episode, moderate F33.1 [facility] [address] [facility] [id number] [address] [place] [address] Nov, [facility] [address] [facility] [id number] [address] [place] [address] Nov, Bipolar 1 disorder, mixed F3 1.60 [place] [address] [facility] [id number] [address] [place] [address] Nov, Major depressive disorder, r ecurrent episode, moderate F33.1 [place] [address] [facility] [id number] [address] [place] [address] Nov, Cervicalgia M54.2 ; Arthralg ia of hip, unspecified laterality M25.559 ; Allergic rhinitis J30.9 and Hormone replacement therapy Z79.890 [facility] [address] [facility] [id number] [address] [place] [address] Nov, Other seasonal allergic rhin itis J30.2 [place] [address] [facility] [id number] [address] [place] [address] October, Major depressive disorder, r ecurrent episode, moderate F33.1 [facility] [address] [facility] [id number] [address] [place] [address] October, Major depressive disorder, r ecurrent episode, moderate F33.1 and Arthralgia of hip, unspecified laterality M25.559 [facility] [address] [facility] [id number] [address] [place] [address] October, Grief F43.20 ; Hypertension I10 ; Hyperlipidemia, unspecified hyperlipidemia type E78.5 ; Other chronic pain G89.29 and Allergic rhinitis, unspecified allergic rhinitis type J30.9 [facility] [address] [facility] [id number] [address] [place] [address] October, Major depressive disorder, r ecurrent episode, moderate F33.1 [place] [address] [place] [id number] [address] [place] [address] Sep, Major depressive disorder, r ecurrent episode, moderate F33.1 [facility] [address] [place] [id number] [address] [place] [address] Sep, [facility] [address] [place] [id number] [address] [place] [address] Sep, Major depressive disorder, r ecurrent episode, moderate F33.1 [facility] [address] [address] Sep, Grief F43.20 [place] [address] [address] Aug, Major depressive disorder, r ecurrent episode, moderate F33.1 [place] [address] [address] Aug, Bipolar 1 disorder, mixed F3 1.60 [facility] [address] [address] Aug, Allergic rhinitis J30.9 ; Ce rvicalgia M54.2 and Low back pain M54.5 [place] [address] [address] Aug, Major depressive disorder, r ecurrent episode, moderate F33.1 [facility] [address] [place] [address] Aug, Sinusitis J32.9 and Tobacco 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 [facility] [address] [place] [address] Aug, [facility] [address] [address] Aug, Depressive disorder, not els ewhere classified F32.9 ; Hormone replacement therapy Z79.[address] scan, head R93.0 [facility] [address] [address] Aug, Major depressive disorder, r ecurrent episode, moderate F33.1 [facility] [address] [id number] [address] [place] [address] Jul, Major depressive disorder, r ecurrent episode, moderate F33.1 [facility] [address] [facility] [id number] [address] [place] [address] Jul, Abdominal pain R10.9 and Hyp ertension I10 [facility] [address] [id number] [address] [place] [address] Jul, [facility] [address] [facility] [id number] [address] [place] [address] Jul, Major depressive disorder, r ecurrent episode, moderate F33.1 [facility] [address] [facility] [id number] [address] [place] [address] Jul, [facility] [address] [facility] [id number] [address] [place] [address] Jul, [facility] [address] [id number] [address] [place] [address] Jun, [facility] [address] [place] [id number] [address] [place] [address] Jun, Depressive disorder, not els ewhere classified F32.9 [facility] [address] [facility] [id number] [address] [place] [address] Jun, [facility] [address] [facility] [id number] [address] [place] [address] Jun, [facility] [address] [facility] [id number] [address] [place] [address] Jun, Arthralgia of hip, unspecifi ed laterality M25.559 ; Bruising, spontaneous R23.3 and Night sweats R61 [facility] [address] [facility] [id number] [address] [place] [address] Jun, [place] [address] [id number] [address] [place] [address] Jun, [facility] [address] [facility] [id number] [address] [place] [address] May, [facility] [address] [facility] [id number] [address] [place] [address] May, Myalgia M79.1 and Screening, lipid Z13.220 [facility] [address] [facility] [id number] [address] [place] [address] Apr, Status post cervical spinal fusion Z98.1 ; Fibromyalgia M79.7 and Unsteady gait R26.81 [facility] [address] [id number] [address] [place] [address] Nov, [facility] [address] [place] [id number] [address] [place] [address] Nov, [facility] [address] [facility] [id number] [address] [place] [address] October, [facility] [address] [facility] [id number] [address] [place] [address] October, [facility] [address] [facility] [id number] [address] [place] [address] October, [facility] [address] [facility] [id number] [address] [place] [address] October, [facility] [address] [facility] [id number] [address] [place] [address] October, [facility] [address] [facility] [id number] [address] [place] [address] October, Dysuria 788.1 ; Nausea 787.0 2 and Urinary tract infection 599.0 [facility] [address] [id number] [address] [place] [address] Sep, [facility] [address] [facility] [id number] [address] [place] [address] Sep, [facility] [address] [id number] [facility] [place] [address] 25 Aug, 2014 [facility] [address] [id number] [address] [place] [address], [place] [address] 25 Aug, 2014 [facility] [address] [id number] [address] [place] [address], [place] [address] 24 Aug, 2014 [facility] [address] [id number] [address] [place] [address], [place] [address] 24 Aug, 2014 [facility] [address] [id number] [address] [place] [address], [place] [address] 23 Aug, 2014 [facility] [address] [id number] [address] [place] [address], [place] [address] 19 Aug, 2014 [facility] [address] [id number] [address] [place] [address], [place] [address] 19 Aug, 2014 [facility] [address] [id number] [address] [place] [address], [place] [address] 19 Aug, 2014 [facility] [address] [id number] [address] [place] [address], [place] [address] 19 Aug, 2014 [facility] [address] [id number] [address] [place] [address], [place] [address] 18 Aug, 2014 [facility] [address] [id number] [address] [place] [address], [place] [address] 18 Aug, 2014 [facility] [address] [id number] [address] [place] [address], [place] [address] 13 Aug, 2014 [facility] [address] [id number] [address] [place] [address], [place] [address] 13 Aug, 2014 [facility] [address] [id number] [address] [place] [address], [place] [address] 11 Aug, 2014 [facility] [address] [id number] [address] [place] [address], [place] [address] 11 Aug, 2014 [facility] [address] [id number] [address] [place] [address], [place] [address] 06 Aug, 2014 [facility] [address] [id number] [address] [place] [address], [place] [address] Aug, 2014 [facility] [address] [id number] [address] [place] [address], [place] [address] Aug, 2014 [facility] [address] [id number] [address] [place] [address], [place] [address] Aug, 2014 [facility] [address] [id number] [address] [place] [address], [place] [address] Aug, 2014 [facility] [address] [id number] [address] [place] [address], [place] [address] Aug, 2014 [facility] [address] [id number] [address] [place] [address], [place] [address] Aug, 2014 [facility] [address] [id number] [address] [place] [address], [place] [address] Jul, 2014 [facility] [address] [id number] [address] [place] [address], [place] [address] Jul, 2014 [facility] [address] [id number] [address] [place] [address], [place] [address] Jul, 2014 [facility] [address] [id number] [address] [place] [address], [place] [address] Jul, 2014 [facility] [address] [id number] [address] [place] [address], [place] [address] Jul, 2014 [facility] [address] [id number] [address] [place] [address], [place] [address] Jul, 2014 [facility] [address] [id number] [address] [place] [address], [place] [address] Jul, 2014 [facility] [address] [id number] [address] [place] [address], [place] [address] Jul, 2014 [facility] [address] [id number] [address] [place] [address], [place] [address] Jul, 2014 [facility] [address] [id number] [address] [place] [address], [place] [address] Jul, [facility] [address] [id number] [address] [place] [address], [place] [address] Jul, [facility] [address] [id number] [address] [place] [address], [place] [address] Jul, [facility] [address] [id number] [address] [place] [address], [place] [address] Jul, [facility] [address] [id number] [address] [place] [address], [place] [address] Jul, [facility] [address] [id number] [address] [place] [address], [place] [address] Jun, [facility] [address] [id number] [address] [place] [address], [place] [address] Jun, [facility] [address] [id number] [address] [place] [address], [place] [address] Jun, [facility] [address] [id number] [address] [place] [address], [place] [address] Jun, [facility] [address] [id number] [address] [place] [address], [place] [address] Jun, [facility] [address] [id number] [address] [place] [address], [place] [address] Jun, [facility] [address] [id number] [address] [place] [address], [place] [address] May, [facility] [address] [id number] [address] [place] [address], [place] [address] May, [facility] [address] [id number] [address] [place] [address], [place] [address] May, [facility] [address] [id number] [address] [place] [address], [place] [address] May, [facility] [address] [id number] [address] [place] [address], [place] [address] May, [facility] [address] [id number] [address] [place] [address], [place] [address] May, [facility] [address] [id number] [address] [place] [address], [place] [address] Apr, [facility] [address] [id number] [address] [place] [address], [place] [address] Apr, [facility] [address] [id number] [address] [place] [address], [place] [address] Apr, [facility] [address] [id number] [address] [place] [address], [place] [address] Apr, [facility] [address] [id number] [address] [place] [address], [place] [address] Apr, [facility] [address] [id number] [address] [place] [address], [place] [address] Apr, [facility] [address] [id number] [address] [place] [address], [place] [address] Mar, [facility] [address] [id number] [address] [place] [address], [place] [address] Mar, [facility] [address] [id number] [address] [place] [address], [place] [address] Mar, [facility] [address] [id number] [address] [place] [address], [place] [address] Mar, [facility] [address] [id number] [address] [place] [address], [place] [address] Mar, [facility] [address] [id number] [address] [place] [address], [place] [address] Mar, [facility] [address] [id number] [address] [place] [address], [place] [address] Mar, [facility] [address] [id number] [address] [place] [address], [place] [address] Mar, [facility] [address] [id number] [address] [place] [address], [place] [address] Mar, [facility] [address] [id number] [address] [place] [address], [place] [address] Mar, [facility] [address] [id number] [address] [place] [address], [place] [address] Mar, [facility] [address] [id number] [address] [place] [address], [place] [address] Mar, [facility] [address] [id number] [address] [place] [address], [place] [address] 30 Feb, 2014 [facility] [address] [id number] [address] [place] [address], [place] [address] 29 Feb, 2014 [facility] [address] [id number] [address] [place] [address], [place] [address] 29 Feb, 2014 [facility] [address] [id number] [address] [place] [address], [place] [address] Feb, [facility] [address] [id number] [address] [place] [address], [place] [address] Feb, [facility] [address] [id number] [address] [place] [address], [place] [address] Feb, [facility] [address] [id number] [address] [place] [address], [place] [address] Feb, [facility] [address] [id number] [address] [place] [address], [place] [address] Jan, [facility] [address] [id number] [address] [place] [address], [place] [address] Jan, [facility] [address] [id number] [address] [place] [address], [place] [address] Jan, [facility] [address] [id number] [address] [place] [address], [place] [address] Dec, [facility] [address] [id number] [address] [place] [address], [place] [address] Dec, [facility] [address] [id number] [address] [place] [address], [place] [address] Dec, [facility] [address] [id number] [address] [place] [address], [place] [address] Dec, [facility] [address] [id number] [address] [place] [address], [place] [address] Sep, [facility] [address] [id number] [address] [place] [address], [place] [address] Sep, [facility] [address] [id number] [address] [place] [address], [place] [address] Sep, [facility] [address] [id number] [address] [place] [address], [place] [address] Sep, [facility] [address] [id number] [address] [place] [address], [place] [address] Sep, [facility] [address] [id number] [address] [place] [address], [place] [address] Sep, [facility] [address] [id number] [address] [place] [address], [place] [address] Sep, [facility] [address] [id number] [address] [place] [address], [place] [address] Sep, [facility] [address] [id number] [address] [place] [address], [place] [address] Aug, [facility] [address] [id number] [address] [place] [address], [place] [address] Aug, [facility] [address] [id number] [address] [place] [address], [place] [address] May, [facility] [address] [id number] [address] [place] [address], [place] [address] May, [facility] [address] [id number] [address] [place] [address], [place] [address] Apr, [facility] [address] [id number] [address] [place] [address], [place] [address] Apr, [facility] [address] [id number] [address] [place] [address], [place] [address] Apr, [facility] [address] [id number] [address] [place] [address], [place] [address] Apr, [facility] [address] [id number] [address] [place] [address], [place] [address] Apr, [facility] [address] [id number] [address] [place] [address], [place] [address] Apr, [facility] [address] [id number] [address] [place] [address], [place] [address] May, [facility] [address] [id number] [address] [place] [address], [place] [address] May, [facility] [address] [id number] [address] [place] [address], [place] [address] May, [facility] [address] [id number] [address] [place] [address], [place] [address] 15 May, 2012 [facility] [address] [id number] [address] [place] [address], [place] [address] May, [facility] [address] [id number] [address] [place] [address], [place] [address] 13 May, 2012 [facility] [address] [id number] [address] [place] [address], [place] [address] Apr, [facility] [address] [id number] [address] [place] [address], [place] [address] Apr, [facility] [address] [id number] [address] [place] [address], [place] [address] Apr, [facility] [address] [id number] [address] [place] [address], [place] [address] Apr, [facility] [address] [id number] [address] [place] [address] [address] Apr, [facility] [address] [id number] [address] [place] [address], [place] [address] 08 Apr, 2012 [facility] [address] [id number] [address] [place] [address], [place] [address] Apr, [facility] [address] [id number] [address] [place] [address], [place] [address] Apr, [facility] [address] [id number] [address] [place] [address], [place] [address] Apr, [facility] [address] [id number] [address] [place] [address], [place] [address] Apr, [facility] [address] [id number] [address] [place] [address], [place] [address] Mar, [facility] [address] [id number] [address] [place] [address], [place] [address] Mar, [facility] [address] [id number] [address] [place] [address] Mar, [facility] [address] [id number] [address] [place] [id number] Mar, [facility] [address] [id number] [address] [place] [address] Mar, [facility] [address] [id number] [address] [place] [id number] Mar, [facility] [address] [id number] [address] [place] [id number] Mar, [facility] [address] [id number] [address] [place] [id number] Mar, [facility] [address] [id number] [address] [place] [id number] Mar, [facility] [address] [id number] [address] [place] [id number] Feb, [facility] [address] [id number] [address] [place] [address], [place] [address] 16 Feb, 2012 [facility] [address] [id number] [address] [place] [address], [place] [address] 11 Feb, 2012 [facility] [address] [id number] [address] [place] [address], [place] [address] Jan, [facility] [address] [id number] [address] [place] [address], [place] [address] Jan, [facility] [address] [id number] [address] [place] [address], [place] [address] Jan, [facility] [address] [id number] [address] [place] [address], [place] [address] Jan, [facility] [address] [id number] [address] [place] [address], [place] [address] Jan, [facility] [address] [id number] [address] [place] [address], [place] [address] 17 Jan, 2012 [facility] [address] [id number] [address] [place] [address], [place] [address] 16 Jan, 2012 [facility] [address] [id number] [address] [place] [address], [place] [address] Jan, [facility] [address] [id number] [address] [place] [address], [place] [address] Jan, [facility] [address] [id number] [address] [place] [address], [place] [address] Jan, [facility] [address] [id number] [address] [place] [address], [place] [address] Dec, [facility] [address] [id number] [address] [place] [address], [place] [address] Dec, [facility] [address] [id number] [address] [place] [address], [place] [address] Dec, [facility] [address] [id number] [address] [place] [address], [place] [address] Dec, [facility] [address] [id number] [address] [place] [address], [place] [address] Nov, [facility] [address] [id number] [address] [place] [address], [place] [address] Nov, [facility] [address] [id number] [address] [place] [address], [place] [address] Nov, [facility] [address] [id number] [address] [place] [address], [place] [address] October, [facility] [address] [id number] [address] [place] [address], [place] [address] October, [facility] [address] [id number] [address] [place] [address], [place] [address] October, [facility] [address] [id number] [address] [place] [address], [place] [address] October, [facility] [address] [id number] [address] [place] [address], [place] [address] October, [facility] [address] [id number] [address] [place] [address], [place] [address] October, [facility] [address] [id number] [address] [place] [address], [place] [address] Aug, [facility] [address] [id number] [address] [place] [address], [place] [address] Mar, [facility] [address] [id number] [address] [place] [address], [place] [address] Nov, [facility] [address] [id number] [address] [place] [address], [place] [address] May, [facility] [address] [id number] [address] [place] [address], [place] [address] May, [facility] [address] [id number] [address] [place] [address], [place] [address] Apr, [facility] [address] [id number] [address] [address] Mar, [facility] [address] [facility] [id number] [address] [place] [address] Mar, IMMUNIZATIONS No Known Immunizations SOCIAL HISTORY Never Assessed REASON FOR VISIT f/u Tristin PLAN OF CARE Activity Details Follow Up 3 Months Reason: Follow-up VITAL SIGNS Height 64 in 2018-05-30 Weight 156.6 lbs 2018-05-30 Heart Rate 92 bpm 2018-05-30 Respiratory Rate 20 2018-05-30 BMI 26.88 kg/m2 2018-05-30 Blood pressure systolic 132 mmHg 2018-05-30 Blood pressure diastolic 78 mmHg 2018-05-30 MEDICATIONS Medication Instructions Dosage Frequency Start Date End Date Duration S tatus Depakote ER 500 mg Orally at bedtime 2 tabs Active Magnesium 500 MG Orally Once a day 1 tablet with a meal 24h Dec, Not-Taking Mometasone Furoate 50 MCG/ACT Nasally twice a day 1 sprays in each nostril 12h Apr, 30 day(s) Active Fetzima 120 mg Orally Once a day TAKE 1 CAPSULE BY MOUTH DAILY 24h Active Polyethylene Glycol 3350 - Orally Once a day 17 gram 24h Mar, 8 Not-Taking Lidocaine-Prilocaine 2.5-2.5 % Active Orally Once a day 1 capsule 24h Act mitchell Xyzal Allergy 24HR 5 MG Orally Once a day 1 tablet in the evening 24h 30 day(s) Active Vitamin D3 2000 UNIT Orally Once a day as directed 24h Dec, Active Estradiol 2 MG Orally Once a day 1 tablet 24h Active Mucinex 600 MG Orally every 12 hrs 1 tablet as needed 12h Active HydrOXYzine HCl 10 mg Orally 3 times a day as needed 1 tablet Feb, Active Tylenol Arthritis Pain A ctive Baclofen 20 mg Orally 2 times a day 1 tablet with food or milk 12h 30 Active Pantoprazole Sodium 20 MG TAKE 1 TABLET BY MOUTH ONCE DAILY 90 Active Voltaren 1 % Transdermal 4 times a day on neck Active RESULTS No Results PROCEDURES Procedure Date Ordered Result Body Site [facility] VISIT ESTABLISHED PATIENT May 30, 2018 [facility] Visit needs to be added with another visit on the nj day May 30, 2018 INSTRUCTIONS MEDICATIONS ADMINISTERED No Known Medications [...]
--- OUTSIDE RECORDS SUMMARY | 2019-06-19 05:26 | XMS REPORT ---
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 Name Role Phone JOHN MORTON Unavailable PROBLEMS Type Condition ICD9-CM Code [id number] Code Onset Dates Condition S tatus SNOMED Code Problem Hormone replacement therapy Z79.890 Ac tive 591122703 Problem Abnormal CT scan, head R93.0 Active 876428589 Problem Sensorineural hearing loss (SNHL) of both ears H90 .3 Active 814841108 Problem Bruising, spontaneous R23.3 Active 192746600 Problem Generalized anxiety disorder F41.1 A ctive 05708720 Problem Arthralgia of hip, unspecified laterality M25.559 Active 72381212 Problem Hematuria, unspecified type R31.9 Ac tive 49409311 Problem Night sweats R61 Active 2148143 0 Problem Hammer toe of right foot M20.41 Activ e 935755167 Problem Major depressive disorder, recurrent episode, moderate F33.1 Active 164202035 Problem Imbalance R26.89 Active 397590445 Problem Slow transit constipation K59.01 Acti ve 12500235 Problem Plantar wart of right foot B07.0 Act mitchell [id number] Problem Grief F43.20 Active 24277300 Problem Hyperlipidemia, unspecified hyperlipidemia type E7 8.5 Active 88227464 Problem Hypertension I10 Active 4498156 3 Problem Bladder spasm N32.89 Active 952445 006 Problem Fibromyalgia M79.7 Active 8302802 7 Problem Sciatica of left side M54.32 Active 71463250 Problem Acute left-sided low back pain with left-sided sciatica M54.42 Active 710905692 Problem Bipolar 1 disorder, mixed F31.60 Acti ve 41467370 Problem Ataxia R27.0 Active 50504553 Problem Other chronic pain G89.29 Active 8 4715768 Problem Gastritis without bleeding, unspecified chronicity, unspecified gastritis type K29.70 Active 272926378 Problem Hot flashes due to menopause N95.1 A ctive 168119305 Problem History of colon polyps Z86.010 Active 860515406 Problem Hearing loss, unspecified laterality H91.90 Active 07366788 Problem Allergic rhinitis J30.9 Active 61 317263 ALLERGIES No Information ENCOUNTERS Encounter Location Date Diagnosis [facility] [address] [facility] [id number] [address] [place] [phone] Jun, [facility] [address] [facility] [id number] [address] [place] [phone] Jun, [facility] [address] [facility] [id number] [place] [phone] Jun, [facility] [address] [place] [id number] [place] [phone] Jun, [facility] [address] [address] Jun, [facility] [address] [place] [id number] [address] [place] [phone] May, [facility] [address] [address] May, [facility] [address] [place] [id number] [address] [place] [phone] May, [facility] [address] [address] May, Allergic rhinitis J30.9 [facility] [address] [facility] [id number] [address] [place] [phone] May, Bipolar 1 disorder, mixed F3 1.60 [facility] [address] [place] [id number] [address] [place] [address] May, [facility] [address] [place] [id number] [address] [place] [id number] 12 Apr, 2018 Allergic rhinitis J30.9 ; Dy sfunction of both eustachian tubes H69.83 ; History of bladder surgery Z98.890 and Cervicalgia M54.2 [facility] [address] [id number] [address] [place] [address] Mar, Bipolar 1 disorder, mixed F3 1.60 [facility] [address] [id number] [address] [place] [phone] 17 Mar, 2018 [facility] [address] [facility] [id number] [address] [place] [address] Mar, Slow transit constipation K5 9.01 ; Encounter for immunization Z23 and Generalized anxiety disorder F41.1 [facility] [address] [facility] [id number] [address] [place] [phone] 27 Feb, 2018 Bipolar 1 disorder, mixed F3 1.60 [facility] [address] [facility] [id number] [address] [place] [phone] Feb, Allergic rhinitis J30.9 [facility] [address] [facility] [id number] [address] [place] [phone] 24 Feb, 2018 Bipolar 1 disorder, mixed F3 1.60 [facility] [address] [id number] [address] [place] [id number] 20 Feb, 2018 Bipolar 1 disorder, mixed F3 1.60 and Generalized anxiety disorder F41.1 [facility] [address] [facility] [id number] [address] [place] [phone] 13 Feb, 2018 Bipolar 1 disorder, mixed F3 1.60 [facility] [address] [facility] [id number] [address] [place] [phone] Feb, Allergic rhinitis J30.9 [facility] [address] [id number] [address] [place] [phone] 05 Feb, 2018 [facility] [address] [facility] [id number] [address] [place] [phone] Jan, Bipolar 1 disorder, mixed F3 1.60 [facility] [address] [facility] [id number] [address] [place] [phone] Jan, Low back pain M54.5 ; Hyperl ipidemia, unspecified hyperlipidemia type E78.5 and Bipolar 1 disorder, mixed F31.60 [facility] [address] [place] [id number] [address] [place], [place] [address] Jan, Bipolar 1 disorder, mixed F3 1.60 [facility] [address] [place] [id number] [address] [place] [address] Jan, Bipolar 1 disorder, mixed F3 1.60 [facility] [address] [place] [id number] [address] [place] [address] Jan, Bipolar 1 disorder, mixed F3 1.60 [facility] [address] [place] [id number] [address] [place] [address] Jan, Bipolar 1 disorder, mixed F3 1.60 [facility] [address] [place] [id number] [address] [place] [phone] Dec, Bipolar 1 disorder, mixed F3 1.60 ; Generalized anxiety disorder F41.1 and Other long term acute care registered nurse (current) drug therapy Z79.899 [facility] [address] [facility] [id number] [address] [place] [phone] Dec, Other usp (current) dr ug therapy Z79.899 [facility] [address] [facility] [id number] [address] [place] [phone] Dec, Bipolar 1 disorder, mixed F3 1.60 [facility] [address] [place] [id number] [address] [place] [phone] Dec, Bipolar 1 disorder, mixed F3 1.60 [facility] [address] [facility] [id number] [address] [place] [phone] Nov, Bipolar 1 disorder, mixed F3 1.60 [facility] [address] [facility] [id number] [address] [place] [address] Nov, Bipolar 1 disorder, mixed F3 1.60 [facility] [address] [facility] [id number] [address] [place] [address] Nov, Bipolar 1 disorder, mixed F3 1.60 [facility] [address] [facility] [id number] [address] [place] [phone] Nov, Allergic rhinitis J30.9 [facility] [address] [facility] [id number] [address] [place] [id number] Nov, Allergic rhinitis J30.9 [facility] [address] [place] [id number] [address] [place] [address] Nov, [facility] [address] [place] [id number] [place] [address] Nov, Bipolar 1 disorder, mixed F3 1.60 [place] [address] [address] Nov, Fibromyalgia M79.7 and Aller gic rhinitis J30.9 [place] [address] [place] [id number] [place] [address] October, Bipolar 1 disorder, mixed F3 1.60 [facility] WALK IN [facility] [address] [place] [id number] [address] [place] [phone] October, Acute nasopharyngitis J00 [facility] WALK IN [facility] [address] [place] [id number] [place] [address] October, Bitten or stung by nonvenomo us insect and other nonvenomous arthropods, initial encounter W57.XXXA and Insect bite (nonvenomous) of abdominal wall, initial encounter S30.861A [place] [address] [place] [id number] [address] [place] [phone] October, Insect bite (nonvenomous) of abdominal wall, initial encounter S30.861A ; Bitten or stung by nonvenomous insect and other nonvenomous arthropods, initial encounter W57.XXXA ; Allergic rhinitis J30.9 and Low back pain M54.5 [facility] [address] [place] [id number] [address] [place] [id number] October, Bipolar 1 disorder, mixed F3 1.60 [place] [address] [id number] [address] [place] [phone] October, [facility] [address] [id number] [address] [place] [phone] October, [facility] [address] [id number] [address] [place] [phone] October, Bipolar 1 disorder, mixed F3 1.60 [facility] [address] [id number] [address] [place] [address] Sep, Bipolar 1 disorder, mixed F3 1.60 [facility] [address] [id number] [address] [place] [address] Sep, Other chronic pain G89.29 [facility] [address] [facility] [id number] [address] [place] [phone] Sep, [facility] [address] [facility] [id number] [address] [place] [address] Sep, Bipolar 1 disorder, mixed F3 1.60 [facility] [address] [id number] [address] [place] [address] Sep, Allergic rhinitis J30.9 and Sciatica of left side M54.32 [facility] [address] [facility] [id number] [address] [place] [phone] Sep, Bipolar 1 disorder, mixed F3 1.60 [facility] [address] [facility] [id number] [address] [place] [address] Sep, Bipolar 1 disorder, mixed F3 1.60 and Generalized anxiety disorder F41.1 [facility] [address] [id number] [address] [place] [phone] Aug, [facility] [address] [facility] [id number] [address] [place] [phone] Aug, Bipolar 1 disorder, mixed F3 1.60 [facility] [address] [facility] [id number] [address] [place] [phone] Aug, Bipolar 1 disorder, mixed F3 1.60 [facility] [address] [facility] [id number] [address] [place] [phone] Aug, [facility] [address] [facility] [id number] [address] [place] [phone] Aug, Generalized anxiety disorder F41.1 [facility] [address] [facility] [id number] [address] [place] [phone] Aug, Bipolar 1 disorder, mixed F3 1.60 [facility] [address] [facility] [id number] [address] [place] [phone] Aug, Plantar wart of right foot B 07.0 [facility] [address] [facility] [id number] [address] [place] [phone] Aug, Bipolar 1 disorder, mixed F3 1.60 [facility] [address] [facility] [id number] [address] [place] [id number] Jul, Bipolar 1 disorder, mixed F3 1.60 [facility] [address] [facility] [id number] [address] [place] [phone] Jul, [facility] [address] [facility] [id number] [address] [place] [phone] Jul, Bipolar 1 disorder, mixed F3 1.60 [facility] [address] [facility] [id number] [address] [place] [phone] Jul, Generalized anxiety disorder F41.1 [facility] [address] [facility] [id number] [address] [place] [phone] Jul, Bipolar 1 disorder, mixed F3 1.60 [facility] [address] [facility] [id number] [address] [place] [phone] Jul, Acute left-sided low back pa in with left-sided sciatica M54.42 [facility] [address] [facility] [id number] [address] [place] [phone] 05 Jul, 2017 Coccydynia M53.3 [facility] [address] [address] Jun, Bipolar 1 disorder, mixed F3 1.60 [facility] [address] [address] Jun, Acute nasopharyngitis J00 [facility] [address] [address] Jun, Bipolar 1 disorder, mixed F3 1.60 [place] [address] [address] Jun, Fibromyalgia M79.7 [place] [address] [address] Jun, Bipolar 1 disorder, mixed F3 1.60 [place] [address] [address] Jun, Fibromyalgia M79.7 and Bipol ar 1 disorder, mixed F31.60 [place] [address] [address] May, Bipolar 1 disorder, mixed F3 1.60 ; Generalized anxiety disorder F41.1 and Other long term acute care registered nurse (current) drug therapy Z79.899 [place] [address] [address] May, Bipolar 1 disorder, mixed F3 1.60 [facility] [address] [address] 14 May, 2017 Cough R05 and Body aches R52 [facility] WALK IN CARE [facility] [address] [address] 10 May, 2017 Bladder spasm N32.89 and Acu te cystitis without hematuria N30.00 [place] [address] [address] 07 May, 2017 Bipolar 1 disorder, mixed F3 1.60 [place] [address] [address] Apr, [facility] [address] [place] [address] Apr, Major depressive disorder, r ecurrent episode, moderate F33.1 and Encounter for immunization Z23 [facility] [address] [place] [id number] [place] [address] Apr, Bipolar 1 disorder, mixed F3 1.60 [facility] [address] [address] Apr, Bipolar 1 disorder, mixed F3 1.60 [place] [address] Apr, Bipolar 1 disorder, mixed F3 1.60 [place] [address] [place] [address] Apr, Yeast vaginitis B37.3 [facility] [address] [address] Apr, Bipolar 1 disorder, mixed F3 1.60 [facility] [address] [address] Apr, Cellulitis L03.[address] for immunization Z23 [facility] [address] [address] Apr, Bipolar 1 disorder, mixed F3 1.60 [facility] [address] [address] Mar, Bipolar 1 disorder, mixed F3 1.60 [place] [address] [address] Mar, Bipolar 1 disorder, mixed F3 1.60 [facility] [address] [address] Mar, Imbalance R26.89 [address] Encount er for immunization Z23 [facility] [address] [place] [address] Mar, Generalized anxiety disorder F41.1 [facility] [address] [facility] [id number] [address] [place] [address] Mar, Bipolar 1 disorder, mixed F3 1.60 [facility] [address] [facility] [id number] [address] [place] [address] Mar, Generalized anxiety disorder F41.1 [facility] [address] [place] [id number] [address] [place] [address] Mar, Bipolar 1 disorder, mixed F3 1.60 [place] [address] [facility] [id number] [address] [place] [address] Mar, Bipolar 1 disorder, mixed F3 1.60 [place] [address] [place] [id number] [address] [place] [address] Feb, Bipolar 1 disorder, mixed F3 1.60 [place] [address] [place] [id number] [address] [place] [address] Feb, Bipolar 1 disorder, mixed F3 1.60 and Generalized anxiety disorder F41.1 [place] [address] [place] [id number] [address] [place] [address] Feb, Gastritis without bleeding, unspecified chronicity, unspecified gastritis type K29.70 ; Hammer toe of right foot M20.41 and Other viral warts B07.8 [place] [address] [place] [id number] [address] [place] [address] Feb, Bipolar 1 disorder, mixed F3 1.60 [place] [address] [place] [id number] [address] [place] [address] Feb, Bipolar 1 disorder, mixed F3 1.60 [place] [address] [place] [id number] [address] [place] [id number] 05 Feb, 2017 Bipolar 1 disorder, mixed F3 1.60 [place] [address] [place] [id number] [address] [place] [address] Jan, Encounter for screening mamm ogram for breast cancer Z12.31 ; Other viral warts B07.8 and Allergic rhinitis J30.9 [facility] [address] [facility] [id number] [address] [place] [address] Jan, Bipolar 1 disorder, mixed F3 1.60 [facility] [address] [facility] [id number] [address] [place] [id number] Jan, Bipolar 1 disorder, mixed F3 1.60 [facility] [address] [facility] [id number] [address] [place] [id number] Jan, [facility] [address] [facility] [id number] [address] [place] [address] Jan, Bipolar 1 disorder, mixed F3 1.60 [place] [address] [facility] [id number] [address] [place] [address] Jan, Bipolar 1 disorder, mixed F3 1.60 [place] [address] [facility] [id number] [address] [place] [address] Jan, Allergic rhinitis J30.9 ; He maturia R31.9 and Colon cancer screening Z12.11 [place] [address] [facility] [id number] [address] [place] [address] Dec, Bipolar 1 disorder, mixed F3 1.60 [place] [address] [facility] [id number] [address] [place] [address] Dec, Bipolar 1 disorder, mixed F3 1.60 ; Generalized anxiety disorder F41.1 and Other usp (current) drug therapy Z79.899 [facility] [address] [facility] [id number] [address] [place] [address] Dec, Bipolar 1 disorder, mixed F3 1.60 [place] [address] [facility] [id number] [address] [place] [address] Dec, Bipolar 1 disorder, mixed F3 1.60 [facility] [address] [facility] [id number] [address] [place] [address] Dec, Bipolar 1 disorder, mixed F3 1.60 [facility] [address] [facility] [id number] [address] [place] [address] Dec, Low back pain M54.5 and Recu rrent urinary tract infection N39.0 [facility] [address] [id number] [address] [place] [address] Nov, Bipolar 1 disorder, mixed F3 1.60 [facility] [address] [facility] [id number] [address] [place] [address] Nov, Bipolar 1 disorder, mixed F3 1.60 [facility] [address] [facility] [id number] [address] [place] [phone] Nov, Bipolar 1 disorder, mixed F3 1.60 [place] [address] [facility] [id number] [address] [place] [address] Nov, Bipolar 1 disorder, mixed F3 1.60 [facility] [address] [facility] [id number] [address] [place] [id number] Nov, [facility] [address] [facility] [id number] [address] [place] [address] Nov, Anesthesia of skin R20.0 ; F requent UTI N39.0 ; Tobacco abuse Z72.0 and Colon cancer screening Z12.11 [place] [address] [facility] [id number] [address] [place] [address] Nov, Bipolar 1 disorder, mixed F3 1.60 [facility] [address] [facility] [id number] [address] [place] [phone] October, Bipolar 1 disorder, mixed F3 1.60 [facility] [address] [facility] [id number] [address] [place] [phone] October, Bipolar 1 disorder, mixed F3 1.60 [facility] [address] [facility] [id number] [address] [place] [address] October, Bipolar 1 disorder, mixed F3 1.60 [facility] [address] [facility] [id number] [address] [place] [phone] October, Bipolar 1 disorder, mixed F3 1.60 [place] [address] [address] October, Bipolar 1 disorder, mixed F3 1.60 [place] [address] [place] [id number] [address] [place] [phone] October, Cervicalgia M54.2 and Bipola r 1 disorder, mixed F31.60 [place] [address] [phone] October, Hypertension I10 ; Hyperlipi demia, unspecified hyperlipidemia type E78.5 and Family history of thyroid disease Z83.49 [place] [address] [id number] October, [place] [address] [id number] October, Hypertension I10 ; Hyperlipi demia, unspecified hyperlipidemia type E78.5 and Family history of thyroid problem Z83.49 [place] [address] [id number] October, Bipolar 1 disorder, mixed F3 1.60 [place] [address] [id number] Sep, Bipolar 1 disorder, mixed F3 1.60 [place] [address] [place] [id number] [address] [place] [phone] Sep, Bipolar 1 disorder, mixed F3 1.60 [place] [address] [place] [id number] [address] [place] [phone] Sep, Bipolar 1 disorder, mixed F3 1.60 [place] [address] [address] Sep, History of colon polyps Z86. 010 and Hematochezia K92.1 [place] [address] [place] [id number] [address] [place] [phone] Sep, Major depressive disorder, r ecurrent episode, moderate F33.1 [facility] [address] [facility] [id number] [address] [place] [phone] Sep, Bipolar 1 disorder, mixed F3 1.60 [facility] [address] [place] [facility] [id number] [address] [place] [id number] Aug, Hot flashes due to menopause N95.1 [facility] [address] [place] [facility] [id number] [address] [place] [id number] Aug, Bipolar 1 disorder, mixed F3 1.60 [facility] [address] [place] [facility] [id number] [address] [place] [id number] Aug, [facility] [address] [place] [id number] [address] [place] [phone] Aug, Bipolar 1 disorder, mixed F3 1.60 [facility] [address] [place] [id number] [address] [place] [id number] Aug, Bipolar 1 disorder, mixed F3 1.60 [facility] [address] [place] [id number] [address] [place] [id number] Aug, Hot flashes due to menopause N95.1 ; Cervicalgia M54.2 and Ataxia R27.0 [facility] [address] [place] [facility] [id number] [address] [place] [id number] Jul, Bipolar 1 disorder, mixed F3 1.60 [facility] [address] [place] [facility] [id number] [address] [place] [id number] Jul, Bipolar 1 disorder, mixed F3 1.60 [facility] [address] [place] [facility] [id number] [address] [place] [id number] Jul, Bipolar 1 disorder, mixed F3 1.60 [facility] [address] [place] [facility] [id number] [address] [place] [address] Jul, Bipolar 1 disorder, mixed F3 1.60 [facility] [address] [place] [id number] [address] [place] [address] Jul, Bipolar 1 disorder, mixed F3 1.60 [place] [address] 08 Jul, 2016 Cervicalgia M54.2 ; Tremor R 25.1 ; Hearing abnormally acute, unspecified laterality H93.239 ; Alopecia L65.9 ; Encounter for immunization Z23 and Family history of thyroid disease Z83.49 [place] [address] Jul, Bipolar 1 disorder, mixed F3 1.60 [place] [address] Jun, [place] [address] Jun, Hearing disorder, unspecifie d laterality H93.299 [place] [address] Jun, Bipolar 1 disorder, mixed F3 1.60 [place] [address] Jun, Bipolar 1 disorder, mixed F3 1.60 [place] [address] [place] [id number] Jun, Allergic rhinitis J30.9 [place] [address] [place] [address] Jun, Bipolar 1 disorder, mixed F3 1.60 [place] [address] [place] [address] Jun, Bipolar 1 disorder, mixed F3 1.60 [place] [address] [place] [address] Jun, Allergic rhinitis J30.9 [place] [address] [address] Jun, Allergic rhinitis J30.9 [place] [address] [id number] [address] [place] [id number] Jun, Bipolar 1 disorder, mixed F3 1.60 [facility] [address] [id number] [address] [place] [address] May, Bipolar 1 disorder, mixed F3 1.60 [facility] [address] [id number] [address] [place] [id number] May, Bipolar 1 disorder, mixed F3 1.60 [facility] [address] [id number] [address] [place] [id number] May, [facility] [address] [id number] [address] [place] [address] May, Bipolar 1 disorder, mixed F3 1.60 [facility] [address] [id number] [address] [place] [phone] May, Bipolar 1 disorder, mixed F3 1.60 [facility] [address] [id number] [address] [place] [id number] May, [facility] [address] [id number] [address] [place] [phone] May, [facility] [address] [id number] [address] [place] [address] May, [facility] [address] [id number] [address] [place] [phone] May, Abdominal pain, unspecified location R10.9 [facility] [address] [id number] [address] [place] [phone] May, [facility] [address] [place] [facility] [id number] [address] [place] [phone] Apr, Hematuria R31.9 ; Ataxia R27 .0 and Hearing loss, unspecified laterality H91.90 [facility] [address] [place] [facility] [id number] [address] [place] [id number] Apr, Bipolar 1 disorder, mixed F3 1.60 [facility] [address] [place] [id number] [address] [place] [id number] 11 Apr, 2016 Acute effusion of both middl e ears H65.193 [facility] [id number] [place] [address] 10 Apr, 2016 Hematuria R31.9 and Pyelonep hritis N12 [facility] [address] [address] Apr, [place] [address] [address] Mar, Bipolar 1 disorder, mixed F3 1.60 [place] [address] [address] Mar, [place] [address] [address] Mar, Bipolar 1 disorder, mixed F3 1.60 [place] [address] [address] Mar, Bipolar 1 disorder, mixed F3 1.60 [place] [address] [address] Mar, Encounter for immunization Z 23 and Gastritis without bleeding, unspecified chronicity, unspecified gastritis type K29.70 [place] [address] [address] Mar, Bipolar 1 disorder, mixed F3 1.60 and Grief F43.20 [place] [address] [address] Mar, Gastritis without bleeding, unspecified chronicity, unspecified gastritis type K29.70 [place] [address] [place] [id number] [address] [place] [address] Mar, Bipolar 1 disorder, mixed F3 1.60 [place] [address] [address] Mar, Gastritis without bleeding, unspecified chronicity, unspecified gastritis type K29.70 [facility] [address] [place] [facility] [id number] [address] [place] [phone] Mar, [facility] [address] [place] [facility] [id number] [address] [place] [address] 27 Feb, 2016 Bipolar 1 disorder, mixed F3 1.60 [facility] [address] [place] [id number] [address] [place] [address] Feb, Bipolar 1 disorder, mixed F3 1.60 and Grief F43.20 [facility] [address] [place] [facility] [id number] [address] [place] [address] Feb, Gastritis without bleeding, unspecified chronicity, unspecified gastritis type K29.70 [place] [address] [place] [id number] [address] [place] [id number] 14 Feb, 2016 Bipolar 1 disorder, mixed F3 1.60 [facility] [address] [place] [id number] [address] [place] [id number] Feb, Gastroesophageal reflux dise ase, esophagitis presence not specified K21.9 [facility] [address] [place] [id number] [address] [place] [address] Jan, Bipolar 1 disorder, mixed F3 1.60 [place] [address] [place] [id number] [address] [place] [address] Jan, Bipolar 1 disorder, mixed F3 1.60 and Unsteady gait R26.81 [place] [address] [place] [id number] [address] [place] [id number] Jan, Bipolar 1 disorder, mixed F3 1.60 [place] [address] [address] Jan, Bipolar 1 disorder, mixed F3 1.60 and Other usp (current) drug therapy Z79.899 [place] [address] [place] [id number] [address] [place] [id number] Jan, Bipolar 1 disorder, mixed F3 1.60 [facility] [address] [place] [id number] [address] [place] [address] Jan, Bipolar 1 disorder, mixed F3 1.60 [facility] [address] [place] [id number] [address] [place] [id number] Jan, Bipolar 1 disorder, mixed F3 1.60 ; Grief F43.20 and Other long term acute care registered nurse (current) drug therapy Z79.899 [facility] [address] [place] [id number] [address] [place] [address] Jan, Bipolar 1 disorder, mixed F3 1.60 [place] [address] [place] [id number] [address] [place] [address] Dec, [facility] [address] [place] [id number] [address] [place] [address] Dec, Bipolar 1 disorder, mixed F3 1.60 ; Vitamin D deficiency, unspecified E55.9 ; H/O allergic rhinitis Z87.09 ; Other chronic pain G89.29 and Dorsalgia, unspecified M54.9 [facility] [address] [place] [id number] [address] [place] [address] Dec, [place] [address] [place] [id number] [address] [place] [id number] Dec, Bipolar 1 disorder, mixed F3 1.60 [facility] [address] [place] [id number] [address] [place] [address] Dec, Major depressive disorder, r ecurrent episode, moderate F33.1 [facility] [address] [place] [id number] [address] [place] [id number] Dec, Major depressive disorder, r ecurrent episode, moderate F33.1 [facility] [address] [place] [id number] [address] [place] [id number] Nov, [facility] [address] [place] [id number] [address] [place] [id number] Nov, Bipolar 1 disorder, mixed F3 1.60 [place] [id number] [id number] [address] [place] [address] Nov, Major depressive disorder, r ecurrent episode, moderate F33.1 [place] [address] [id number] [address] [place] [phone] Nov, Cervicalgia M54.2 ; Arthralg ia of hip, unspecified laterality M25.559 ; Allergic rhinitis J30.9 and Hormone replacement therapy Z79.890 [facility] [address] [id number] [address] [place] [address] Nov, Other seasonal allergic rhin itis J30.2 [place] [address] [place] [facility] [id number] [address] [place] [id number] October, Major depressive disorder, r ecurrent episode, moderate F33.1 [place] [address] [place] [facility] [id number] [address] [place] [phone] October, Major depressive disorder, r ecurrent episode, moderate F33.1 and Arthralgia of hip, unspecified laterality M25.559 [place] [address] [id number] [address] [place] [address] October, Grief F43.20 ; Hypertension I10 ; Hyperlipidemia, unspecified hyperlipidemia type E78.5 ; Other chronic pain G89.29 and Allergic rhinitis, unspecified allergic rhinitis type J30.9 [place] [address] [place] [facility] [id number] [address] [place] [address] October, Major depressive disorder, r ecurrent episode, moderate F33.1 [place] [address] [id number] [address] [place] [id number] Sep, Major depressive disorder, r ecurrent episode, moderate F33.1 [place] [address] [place] [facility] [id number] [address] [place] [id number] Sep, [place] [address] [place] [facility] [id number] [address] [place] [id number] Sep, Major depressive disorder, r ecurrent episode, moderate F33.1 [facility] [address] [place] [facility] [id number] [address] [place] [address] Sep, Grief F43.20 [place] [address] [place] [facility] [id number] [address] [place] [address] Aug, Major depressive disorder, r ecurrent episode, moderate F33.1 [place] [address] [place] [id number] [address] [place] [id number] Aug, Bipolar 1 disorder, mixed F3 1.60 [place] [address] [place] [facility] [id number] [address] [place] [id number] Aug, Allergic rhinitis J30.9 ; Ce rvicalgia M54.2 and Low back pain M54.5 [place] [address] [place] [id number] [address] [place] [address] Aug, Major depressive disorder, r ecurrent episode, moderate F33.1 [facility] [address] [place] [id number] [address] [place] [address] Aug, Sinusitis J32.9 and Tobacco 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 [facility] [address] [place] [id number] [place] [address] Aug, [place] [address] [place] [id number] [place] [address] Aug, Depressive disorder, not els ewhere classified F32.9 ; Hormone replacement therapy Z79.[address] scan, head R93.0 [place] [address] [place] [id number] [address] [place] [id number] Aug, Major depressive disorder, r ecurrent episode, moderate F33.1 [facility] [address] [place] [id number] [address] [place] [id number] Jul, Major depressive disorder, r ecurrent episode, moderate F33.1 [place] [address] [place] [facility] [id number] [address] [place] [id number] Jul, Abdominal pain R10.9 and Hyp ertension I10 [facility] [address] [place] [id number] [address] [place] [id number] Jul, [facility] [address] [place] [facility] [id number] [address] [place] [id number] Jul, Major depressive disorder, r ecurrent episode, moderate F33.1 [facility] [address] [place] [id number] [address] [place] [id number] Jul, [facility] [address] [place] [facility] [id number] [address] [place] [id number] Jul, [facility] [address] [place] [id number] [address] [place] [id number] Jun, [facility] [address] [place] [id number] [place] [id number] Jun, Depressive disorder, not els ewhere classified F32.9 [facility] [address] [place] [id number] [address] [place] [phone] Jun, [facility] [address] [place] [facility] [id number] [address] [place] [id number] Jun, [facility] [address] [place] [id number] [address] [place] [id number] Jun, Arthralgia of hip, unspecifi ed laterality M25.559 ; Bruising, spontaneous R23.3 and Night sweats R61 [facility] [address] [place] [id number] [address] [place] [id number] Jun, [facility] [address] [place] [id number] [address] [place] [id number] Jun, [facility] [address] [place] [id number] [address] [place] [id number] May, [facility] [address] [place] [id number] [address] [place] [phone] May, Myalgia M79.1 and Screening, lipid Z13.220 [facility] [address] [id number] [address] [place] [phone] Apr, Status post cervical spinal fusion Z98.1 ; Fibromyalgia M79.7 and Unsteady gait R26.81 [facility] [address] [id number] [address] [place] [phone] Nov, [facility] [address] [id number] [address] [place] [phone] Nov, [facility] [address] [id number] [address] [place] [id number] October, [facility] [address] [id number] [address] [place] [phone] October, [facility] [address] [id number] [address] [place] [id number] October, [facility] [address] [id number] [address] [place] [address] October, [facility] [address] [id number] [address] [place] [phone] October, [facility] [address] [facility] [id number] [address] [place] [phone] October, Dysuria 788.1 ; Nausea 787.0 2 and Urinary tract infection 599.0 [facility] [address] [id number] [address] [place] [id number] Sep, [facility] [address] [id number] [address] [place] [id number] Sep, [facility] [address] [id number] [address] [place] [id number] Aug, [facility] [address] [id number] [address] [place] [phone] Aug, [facility] [address] [id number] [address] [place] [id number] Aug, [facility] [address] [id number] [facility] [place] [address] 24 Aug, 2014 [facility] [address] [id number] [facility] [place] [address] 23 Aug, 2014 [facility] [address] [id number] [facility] [place] [address] 19 Aug, 2014 [facility] [address] [id number] [address] [place] [address], [place] [address] 19 Aug, 2014 [facility] [address] [id number] [address] [place] [address], [place] [id number] 19 Aug, 2014 [facility] [address] [id number] [address] [place] [address], [place] [id number] 19 Aug, 2014 [facility] [address] [id number] [address] [place] [address], [place] [address] 18 Aug, 2014 [facility] [address] [id number] [address] [place] [address], [place] [address] 18 Aug, 2014 [facility] [address] [id number] [address] [place] [address], [place] [address] 13 Aug, 2014 [facility] [address] [id number] [address] [place] [address], [place] [address] 13 Aug, 2014 [facility] [address] [id number] [address] [place] [address], [place] [id number] 11 Aug, 2014 [facility] [address] [id number] [address] [place] [address], [place] [address] 11 Aug, 2014 [facility] [address] [id number] [address] [place] [address], [place] [address] 06 Aug, 2014 [facility] [address] [id number] [address] [place] [address], [place] [id number] 06 Aug, 2014 [facility] [address] [id number] [address] [place] [address], [place] [address] 05 Aug, 2014 [facility] [address] [id number] [address] [place] [address], [place] [address] Aug, [facility] [address] [id number] [address] [place] [address], [place] [address] Aug, [facility] [address] [id number] [address] [place] [address], [place] [address] Aug, [facility] [address] [id number] [address] [place] [address], [place] [address] Aug, [facility] [address] [id number] [address] [place] [address], [place] [address] Jul, 2014 [facility] [address] [id number] [address] [place] [address], [place] [address] Jul, 2014 [facility] [address] [id number] [address] [place] [address], [place] [address] Jul, 2014 [facility] [address] [id number] [address] [place] [address], [place] [id number] Jul, 2014 [facility] [address] [id number] [address] [place] [address], [place] [address] Jul, 2014 [facility] [address] [id number] [address] [place] [address], [place] [address] Jul, 2014 [facility] [address] [id number] [address] [place] [address], [place] [address] Jul, 2014 [facility] [address] [id number] [address] [place] [address], [place] [address] Jul, 2014 [facility] [address] [id number] [address] [place] [id number] Jul, 2014 [facility] [address] [id number] [address] [place] [address], [place] [address] Jul, 2014 [facility] [address] [id number] [address] [place] [id number] Jul, 2014 [facility] [address] [id number] [address] [place] [address], [place] [id number] Jul, [facility] [address] [id number] [address] [place] [address], [place] [address] Jul, [facility] [address] [id number] [address] [place] [address], [place] [id number] Jul, [facility] [address] [id number] [address] [place] [address], [place] [address] Jun, [facility] [address] [id number] [address] [place] [address], [place] [id number] Jun, [facility] [address] [id number] [address] [place] [address], [place] [id number] Jun, [facility] [address] [id number] [address] [place] [address], [place] [id number] Jun, [facility] [address] [id number] [address] [place] [address], [place] [id number] Jun, [facility] [address] [id number] [address] [place] [address], [place] [id number] Jun, [facility] [address] [id number] [address] [place] [address], [place] [id number] May, [facility] [address] [id number] [address] [place] [address], [place] [id number] May, [facility] [address] [id number] [address] [place] [address], [place] [id number] May, [facility] [address] [id number] [address] [place] [address], [place] [id number] May, [facility] [address] [id number] [address] [place] [address], [place] [address] May, [facility] [address] [id number] [address] [place] [address], [place] [id number] May, [facility] [address] [id number] [address] [place] [address], [place] [id number] Apr, [facility] [address] [id number] [address] [place] [address] [place] [id number] Apr, [facility] [address] [id number] [address] [place] [address], [place] [id number] Apr, [facility] [address] [id number] [address] [place] [address], [place] [id number] Apr, [facility] [address] [id number] [address] [place] [address], [place] [id number] Apr, [facility] [address] [id number] [address] [place] [address], [place] [id number] Apr, [facility] [address] [id number] [address] [place] [address], [place] [id number] Mar, [facility] [address] [id number] [address] [place] [address], [place] [id number] Mar, [facility] [address] [id number] [address] [place] [address], [place] [id number] Mar, [facility] [address] [id number] [address] [place] [id number] Mar, [facility] [address] [id number] [address] [place] [address], [place] [id number] Mar, [facility] [address] [id number] [address] [place] [id number] Mar, [facility] [address] [id number] [address] [place] [address], [place] [id number] Mar, [facility] [address] [id number] [address] [place] [id number] Mar, [facility] [address] [id number] [address] [place] [id number] Mar, [facility] [address] [id number] [address] [place] [id number] Mar, [facility] [address] [id number] [address] [place] [id number] Mar, [facility] [address] [id number] [facility] [place] [id number] Mar, [facility] [address] [id number] [place] [address], [place] [id number] 30 Feb, 2014 [facility] [address] [id number] [address] [place] [address], [place] [id number] Feb, 2013 [facility] [address] [id number] [address] [place] [address], [place] [id number] 29 Feb, 2013 [facility] [address] [id number] [address] [place] [address], [place] [id number] Feb, [facility] [address] [id number] [address] [place] [address], [place] [id number] Feb, [facility] [address] [id number] [address] [place] [address], [place] [id number] Feb, [facility] [address] [id number] [address] [place] [address], [place] [id number] Feb, [facility] [address] [id number] [address] [place] [address], [place] [address] Jan, [facility] [address] [id number] [address] [place] [address], [place] [address] Jan, [facility] [address] [id number] [address] [place] [address], [place] [address] Jan, [facility] [address] [id number] [address] [place] [address], [place] [address] Dec, [facility] [address] [id number] [address] [place] [address], [place] [id number] Dec, [facility] [address] [id number] [address] [place] [address], [place] [address] Dec, [facility] [address] [id number] [address] [place] [address], [place] [id number] Dec, [facility] [address] [id number] [address] [place] [address], [place] [address] Sep, [facility] [address] [id number] [address] [place] [address], [place] [id number] Sep, [facility] [address] [id number] [address] [place] [address], [place] [id number] Sep, [facility] [address] [id number] [address] [place] [address], [place] [id number] Sep, [facility] [address] [id number] [address] [place] [address], [place] [id number] Sep, [facility] [address] [id number] [address] [place] [address], [place] [id number] Sep, [facility] [address] [id number] [address] [place] [address], [place] [id number] Sep, [facility] [address] [id number] [address] [place] [address], [place] [address] Sep, [facility] [address] [id number] [address] [place] [address], [place] [address] Aug, [facility] [address] [id number] [address] [place] [address], [place] [id number] Aug, [facility] [address] [id number] [address] [place] [address], [place] [address] May, [facility] [address] [id number] [address] [place] [address], [place] [address] May, [facility] [address] [id number] [address] [place] [address], [place] [address] Apr, [facility] [address] [id number] [address] [place] [address], [place] [address] Apr, [facility] [address] [id number] [address] [place] [address], [place] [address] Apr, [facility] [address] [id number] [address] [place] [address], [place] [address] Apr, [facility] [address] [id number] [address] [place] [address], [place] [id number] Apr, [facility] [address] [id number] [address] [place] [address], [place] [id number] Apr, [facility] [address] [id number] [address] [place] [address], [place] [id number] 18 May, 2012 [facility] [address] [id number] [address] [place] [address], [place] [address] 18 May, 2012 [facility] [address] [id number] [address] [place] [address], [place] [id number] 15 May, 2012 [facility] [address] [id number] [address] [place] [address], [place] [id number] 15 May, 2012 [facility] [address] [id number] [address] [place] [address], [place] [id number] 13 May, 2012 [facility] [address] [id number] [address] [place] [address], [place] [id number] 13 May, 2012 [facility] [address] [id number] [address] [place] [address], [place] [id number] 13 Apr, 2012 [facility] [address] [id number] [address] [place] [address], [place] [id number] 13 Apr, 2012 [facility] [address] [id number] [address] [place] [address], [place] [id number] 08 Apr, 2012 [facility] [address] [id number] [address] [place] [address], [place] [address] Apr, [facility] [address] [id number] [address] [place] [address], [place] [address] Apr, [facility] [address] [id number] [address] [place] [address], [place] [address] Apr, [facility] [address] [id number] [address] [place] [address], [place] [address] Apr, [facility] [address] [id number] [address] [place] [address], [place] [address] Apr, [facility] [address] [id number] [address] [place] [address], [place] [address] Apr, [facility] [address] [id number] [address] [place] [address], [place] [address] Apr, [facility] [address] [id number] [address] [place] [address], [place] [id number] Mar, [facility] [address] [id number] [address] [place] [address], [place] [address] Mar, [facility] [address] [id number] [address] [place] [address], [place] [address] Mar, [facility] [address] [id number] [address] [place] [address], [place] [address] Mar, [facility] [address] [id number] [address] [place] [address], [place] [address] Mar, [facility] [address] [id number] [address] [place] [address], [place] [address] Mar, [facility] [address] [id number] [address] [place] [address], [place] [address] Mar, [facility] [address] [id number] [address] [place] [address], [place] [address] Mar, [facility] [address] [id number] [address] [place] [address], [place] [address] Mar, [facility] [address] [id number] [address] [place] [id number] Feb, [facility] [address] [id number] [address] [place] [address], [place] [address] 16 Feb, 2012 [facility] [address] [id number] [address] [place] [address], [place] [id number] 11 Feb, 2012 [facility] [address] [id number] [address] [place] [address], [place] [address] Jan, [facility] [address] [id number] [address] [place] [id number] Jan, [facility] [address] [id number] [address] [place] [address], [place] [address] Jan, [facility] [address] [id number] [address] [place] [address], [place] [address] Jan, [facility] [address] [id number] [address] [place] [address], [place] [address] Jan, [facility] [address] [id number] [address] [place] [address], [place] [address] Jan, [facility] [address] [id number] [address] [place] [address], [place] [address] Jan, [facility] [address] [id number] [address] [place] [address], [place] [address] Jan, [facility] [address] [id number] [address] [place] [address], [place] [address] Jan, [facility] [address] [id number] [address] [place] [address], [place] [address] Jan, [facility] [address] [id number] [address] [place] [address], [place] [address] Dec, [facility] [address] [id number] [address] [place] [address], [place] [address] Dec, [facility] [address] [id number] [address] [place] [address], [place] [address] Dec, [facility] [address] [id number] [address] [place] [address], [place] [address] Dec, [facility] [address] [id number] [address] [place] [address], [place] [address] Nov, [facility] [address] [id number] [address] [place] [address], [place] [address] Nov, [facility] [address] [id number] [address] [place] [address], [place] [address] Nov, [facility] [address] [id number] [address] [place] [id number] October, [facility] [address] [id number] [address] [place] [id number] October, [facility] [address] [id number] [address] [place] [id number] October, [facility] [address] [id number] [address] [place] [id number] October, [facility] [address] [id number] [address] [place] [id number] October, [facility] [address] [id number] [address] [place] [id number] October, [facility] [address] [id number] [address] [place] [id number] Aug, [facility] [address] [id number] [address] [place] [id number] Mar, [facility] [address] [id number] [address] [place] [id number] Nov, [facility] [address] [id number] [address] [place] [id number] May, [facility] [address] [id number] [address] [place] [id number] May, [facility] [address] [id number] [address] [place] [id number] Apr, [facility] [address] [id number] [address] [place] [id number] Mar, [facility] [address] [id number] [address] [place] [id number] Mar, IMMUNIZATIONS No Known Immunizations SOCIAL HISTORY Never Assessed REASON FOR VISIT BH f/u PLAN OF CARE Activity Details Follow Up 1 Week Reason:BH F/U VITAL SIGNS MEDICATIONS Unknown Medications RESULTS No Results PROCEDURES Procedure Date Ordered Result Body Site [facility] VISIT [facility] ESTAB PT May 23, 2018 Psychotherapy, patient and family, 45 minutes, established p atient May 23, 2018 INSTRUCTIONS MEDICATIONS ADMINISTERED No Known Medications [...]
--- OUTSIDE RECORDS SUMMARY | 2019-06-19 05:26 | XMS REPORT ---
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 Name Role Phone JOHN MORTON Unavailable PROBLEMS Type Condition ICD9-CM Code [id number] Code Onset Dates Condition S tatus SNOMED Code Problem Hormone replacement therapy Z79.890 Ac tive 447280798 Problem Abnormal CT scan, head R93.0 Active 766599987 Problem Sensorineural hearing loss (SNHL) of both ears H90 .3 Active 174206476 Problem Bruising, spontaneous R23.3 Active 038625942 Problem Generalized anxiety disorder F41.1 A ctive 67045814 Problem Arthralgia of hip, unspecified laterality M25.559 Active 44158894 Problem Hematuria, unspecified type R31.9 Ac tive 53166307 Problem Night sweats R61 Active 9814456 0 Problem Hammer toe of right foot M20.41 Activ e 276950517 Problem Major depressive disorder, recurrent episode, moderate F33.1 Active 825403706 Problem Imbalance R26.89 Active 228190302 Problem Slow transit constipation K59.01 Acti ve 85688011 Problem Plantar wart of right foot B07.0 Act mitchell [id number] Problem Grief F43.20 Active 44396832 Problem Hyperlipidemia, unspecified hyperlipidemia type E7 8.5 Active 24938952 Problem Hypertension I10 Active 4990932 3 Problem Bladder spasm N32.89 Active 803950 006 Problem Fibromyalgia M79.7 Active 8622179 7 Problem Sciatica of left side M54.32 Active 48795013 Problem Acute left-sided low back pain with left-sided sciatica M54.42 Active 102464166 Problem Bipolar 1 disorder, mixed F31.60 Acti ve 48504127 Problem Ataxia R27.0 Active 56804505 Problem Other chronic pain G89.29 Active 8 2289543 Problem Gastritis without bleeding, unspecified chronicity, unspecified gastritis type K29.70 Active 101027583 Problem Hot flashes due to menopause N95.1 A ctive 986156206 Problem History of colon polyps Z86.010 Active 274552670 Problem Hearing loss, unspecified laterality H91.90 Active 47697550 Problem Allergic rhinitis J30.9 Active 61 949679 ALLERGIES No Information ENCOUNTERS Encounter Location Date Diagnosis [facility] [address] [facility] [id number] [address] [place] [id number] 14 Aug, 2018 [facility] [address] [facility] [id number] [address] [place] [id number] Jun, [facility] [address] [facility] [id number] [address] [place] [phone] Jun, [facility] [address] [facility] [id number] [address] [place] [id number] Jun, [facility] [address] [place] [id number] [address] [place] [id number] Jun, [facility] [address] [facility] [id number] [address] [place] [address] Jun, [facility] [address] [facility] [id number] [address] [place] [address] May, [facility] [address] [place] [id number] [address] [place] [address] May, Bipolar 1 disorder, mixed F3 1.60 and Generalized anxiety disorder F41.1 [facility] [address] [facility] [id number] [address] [place] [address] May, Bipolar 1 disorder, mixed F3 1.60 [facility] [address] [facility] [id number] [address] [place] [address] May, Allergic rhinitis J30.9 [facility] [address] [facility] [id number] [address] [place] [address] May, Bipolar 1 disorder, mixed F3 1.60 [facility] [address] [facility] [id number] [address] [place] [address] May, [facility] [address] [facility] [id number] [address] [place] [address] Apr, Allergic rhinitis J30.9 ; Dy sfunction of both eustachian tubes H69.83 ; History of bladder surgery Z98.890 and Cervicalgia M54.2 [facility] [address] [facility] [id number] [address] [place] [address] Mar, Bipolar 1 disorder, mixed F3 1.60 [facility] [address] [facility] [id number] [address] [place] [address] Mar, [place] [address] [facility] [id number] [address] [place] [address] Mar, Slow transit constipation K5 9.01 ; Encounter for immunization Z23 and Generalized anxiety disorder F41.1 [place] [address] [facility] [id number] [address] [place] [address] 27 Feb, 2018 Bipolar 1 disorder, mixed F3 1.60 [place] [id number] [facility] [id number] [address] [place] [address] 26 Feb, 2018 Allergic rhinitis J30.9 [facility] [address] [facility] [id number] [address] [place] [address] 24 Feb, 2018 Bipolar 1 disorder, mixed F3 1.60 [place] [address] [facility] [id number] [address] [place] [address] 20 Feb, 2018 Bipolar 1 disorder, mixed F3 1.60 and Generalized anxiety disorder F41.1 [place] [address] [facility] [id number] [address] [place] [id number] 13 Feb, 2018 Bipolar 1 disorder, mixed F3 1.60 [place] [address] [facility] [id number] [address] [place] [id number] 11 Feb, 2018 Allergic rhinitis J30.9 [facility] [address] [facility] [id number] [address] [place] [id number] 05 Feb, 2018 [place] [address] [place] [id number] [address] [place] [address] Jan, Bipolar 1 disorder, mixed F3 1.60 [facility] [address] [facility] [id number] [address] [place] [address] Jan, Low back pain M54.5 ; Hyperl ipidemia, unspecified hyperlipidemia type E78.5 and Bipolar 1 disorder, mixed F31.60 [facility] [address] [facility] [id number] [address] [place] [address] Jan, Bipolar 1 disorder, mixed F3 1.60 [facility] [address] [facility] [id number] [address] [place] [address] Jan, Bipolar 1 disorder, mixed F3 1.60 [facility] [address] [place] [id number] [address] [place] [address] Jan, Bipolar 1 disorder, mixed F3 1.60 [facility] [address] [place] [id number] [address] [place] [address] Jan, Bipolar 1 disorder, mixed F3 1.60 [facility] [address] [place] [id number] [address] [place] [address] Dec, Bipolar 1 disorder, mixed F3 1.60 ; Generalized anxiety disorder F41.1 and Other skilled nursing (current) drug therapy Z79.899 [facility] [address] [place] [id number] [address] [place] [address] Dec, 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 Z79.899 [facility] [address] [facility] [id number] [address] [place] [address] Dec, Bipolar 1 disorder, mixed F3 1.60 [facility] [address] [facility] [id number] [address] [place] [address] Dec, Bipolar 1 disorder, mixed F3 1.60 [facility] [address] [facility] [id number] [address] [place] [address] Nov, Bipolar 1 disorder, mixed F3 1.60 [facility] [address] [facility] [id number] [address] [place] [address] Nov, Bipolar 1 disorder, mixed F3 1.60 [place] [address] [facility] [id number] [address] [place] [address] Nov, Bipolar 1 disorder, mixed F3 1.60 [place] [address] [facility] [id number] [address] [place] [address] Nov, Allergic rhinitis J30.9 [place] [address] [place] [id number] [address] [place] [address] Nov, Allergic rhinitis J30.9 [place] [address] [place] [id number] [address] [place] [address] Nov, [place] [address] [place] [id number] [address] [place] [address] Nov, Bipolar 1 disorder, mixed F3 1.60 [place] [address] [address] Nov, Fibromyalgia M79.7 and Aller gic rhinitis J30.9 [place] [address] [place] [id number] [address] [place] [address] October, Bipolar 1 disorder, mixed F3 1.60 [facility] [address] [place] [id number] [address] [place] [address] October, Acute nasopharyngitis J00 [facility] [address] [place] [id number] [address] [place] [address] October, Bitten or stung by nonvenomo us insect and other nonvenomous arthropods, initial encounter W57.XXXA and Insect bite (nonvenomous) of abdominal wall, initial encounter S30.861A [place] [address] [place] [id number] [address] [place] [address] October, Insect bite (nonvenomous) of abdominal wall, initial encounter S30.861A ; Bitten or stung by nonvenomous insect and other nonvenomous arthropods, initial encounter W57.XXXA ; Allergic rhinitis J30.9 and Low back pain M54.5 [facility] [address] [id number] [address] [place] [address] October, Bipolar 1 disorder, mixed F3 1.60 [facility] [address] [id number] [address] [place] [address] October, [facility] [address] [id number] [address] [place] [address] October, [facility] [address] [id number] [address] [place] [address] October, Bipolar 1 disorder, mixed F3 1.60 [facility] [address] [id number] [address] [place] [address] Sep, Bipolar 1 disorder, mixed F3 1.60 [facility] [address] [id number] [address] [place] [address] Sep, Other chronic pain G89.29 [facility] [address] [id number] [address] [place] [address] Sep, [facility] [address] [id number] [address] [place] [address] Sep, Bipolar 1 disorder, mixed F3 1.60 [facility] [address] [facility] [id number] [address] [place] [address] Sep, Allergic rhinitis J30.9 and Sciatica of left side M54.32 [facility] [address] [id number] [address] [place] [address] Sep, Bipolar 1 disorder, mixed F3 1.60 [facility] [address] [id number] [address] [place] [address] Sep, Bipolar 1 disorder, mixed F3 1.60 and Generalized anxiety disorder F41.1 [facility] [address] [id number] [address] [place] [address] Aug, [facility] [address] [facility] [id number] [address] [place] [id number] Aug, Bipolar 1 disorder, mixed F3 1.60 [facility] [address] [id number] [address] [place], [place] [id number] Aug, Bipolar 1 disorder, mixed F3 1.60 [facility] [address] [facility] [id number] [address] [place] [address] Aug, [facility] [address] [facility] [id number] [address] [place] [address] Aug, Generalized anxiety disorder F41.1 [facility] [address] [facility] [id number] [address] [place] [address] Aug, Bipolar 1 disorder, mixed F3 1.60 [facility] [address] [facility] [id number] [address] [place] [phone] Aug, Plantar wart of right foot B 07.0 [facility] [address] [facility] [id number] [address] [place] [address] Aug, Bipolar 1 disorder, mixed F3 1.60 [facility] [address] [facility] [id number] [address] [place] [address] Jul, Bipolar 1 disorder, mixed F3 1.60 [facility] [address] [facility] [id number] [address] [place] [address] Jul, [facility] [address] [facility] [id number] [address] [place] [id number] Jul, Bipolar 1 disorder, mixed F3 1.60 [facility] [address] [facility] [id number] [address] [place] [address] Jul, Generalized anxiety disorder F41.1 [facility] [address] [facility] [id number] [address] [place] [address] Jul, Bipolar 1 disorder, mixed F3 1.60 [facility] [address] [facility] [id number] [address] [place] [address] Jul, Acute left-sided low back pa in with left-sided sciatica M54.42 [facility] [address] [place] [id number] [address] [place] [id number] 05 Jul, 2017 Coccydynia M53.3 [facility] [address] [place] [id number] [address] [place] [address] Jun, Bipolar 1 disorder, mixed F3 1.60 [facility] [address] [place] [id number] [address] [place] [address] Jun, Acute nasopharyngitis J00 [place] [address] [place] [id number] [place] [phone] Jun, Bipolar 1 disorder, mixed F3 1.60 [place] [address] [place] [id number] [place] [address] Jun, Fibromyalgia M79.7 [place] [address] [address] Jun, Bipolar 1 disorder, mixed F3 1.60 [place] [id number] [address] Jun, Fibromyalgia M79.7 and Bipol ar 1 disorder, mixed F31.60 [place] [address] [place] [id number] [place] [address] May, Bipolar 1 disorder, mixed F3 1.60 ; Generalized anxiety disorder F41.1 and 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.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 [place] [address] [place] [id number] [address] [place] [address] May, Bipolar 1 disorder, mixed F3 1.60 [facility] [address] [place] [id number] [place] [address] 14 May, 2017 Cough R05 and Body aches R52 [facility] [address] [place] [id number] [address] [place] [address] 10 May, 2017 Bladder spasm N32.89 [address] Acu te cystitis without hematuria N30.00 [place] [address] [address] 07 May, 2017 Bipolar 1 disorder, mixed F3 1.60 [place] [address] [address] 30 Apr, 2017 [place] [address] [address] Apr, Major depressive disorder, r ecurrent episode, moderate F33.1 and Encounter for immunization Z23 [place] [address] [address] Apr, Bipolar 1 disorder, mixed F3 1.60 [place] [address] [address] Apr, Bipolar 1 disorder, mixed F3 1.60 [place] [address] [address] 16 Apr, 2017 Bipolar 1 disorder, mixed F3 1.60 [place] [address] [address] Apr, Yeast vaginitis B37.3 [place] [address] [address] 09 Apr, 2017 Bipolar 1 disorder, mixed F3 1.60 [facility] [address] [address] 07 Apr, 2017 Cellulitis L03.[address] for immunization Z23 [place] [address] [place] [id number] [address] [place] [address] Apr, Bipolar 1 disorder, mixed F3 1.60 [place] [address] [address] Mar, Bipolar 1 disorder, mixed F3 1.60 [place] [address] [address] Mar, Bipolar 1 disorder, mixed F3 1.60 [facility] [address] [address] Mar, Imbalance R26.89 and Encount er for immunization Z23 [place] [address] [address] Mar, Generalized anxiety disorder F41.1 [place] [address] [address] Mar, Bipolar 1 disorder, mixed F3 1.60 [place] [address] [address] Mar, Generalized anxiety disorder F41.1 [place] [address] [address] Mar, Bipolar 1 disorder, mixed F3 1.60 [place] [address] [address] Mar, Bipolar 1 disorder, mixed F3 1.60 [place] [address] [address] Feb, Bipolar 1 disorder, mixed F3 1.60 [place] [address] [address] Feb, Bipolar 1 disorder, mixed F3 1.60 and Generalized anxiety disorder F41.1 [place] [address] [address] Feb, Gastritis without bleeding, unspecified chronicity, unspecified gastritis type K29.70 ; Hammer toe of right foot M20.41 and Other viral warts B07.8 [place] [address] [address] 20 Feb, 2017 Bipolar 1 disorder, mixed F3 1.60 [place] [address] [place] [id number] [address] [place] [address] 13 Feb, 2017 Bipolar 1 disorder, mixed F3 1.60 [place] [address] [address] 05 Feb, 2017 Bipolar 1 disorder, mixed F3 1.60 [facility] [address] [facility] [id number] [address] [place] [address] 31 Jan, 2017 Encounter for screening mamm ogram for breast cancer Z12.31 ; Other viral warts B07.8 and Allergic rhinitis J30.9 [facility] [address] [facility] [id number] [address] [place] [address] Jan, Bipolar 1 disorder, mixed F3 1.60 [facility] [address] [facility] [id number] [address] [place] [address] Jan, Bipolar 1 disorder, mixed F3 1.60 [place] [address] [facility] [id number] [address] [place] [address] Jan, [place] [address] [facility] [id number] [address] [place] [address] Jan, Bipolar 1 disorder, mixed F3 1.60 [place] [address] [facility] [id number] [address] [place] [address] Jan, Bipolar 1 disorder, mixed F3 1.60 [place] [address] [facility] [id number] [address] [place] [address] 02 Jan, 2017 Allergic rhinitis J30.9 ; He maturia R31.9 and Colon cancer screening Z12.11 [place] [address] [facility] [id number] [address] [place] [address] Dec, Bipolar 1 disorder, mixed F3 1.60 [place] [address] [facility] [id number] [address] [place] [address] 18 Dec, 2016 Bipolar 1 disorder, mixed F3 1.60 ; Generalized anxiety disorder F41.1 and Other skilled nursing (current) drug therapy Z79.899 [facility] [address] [facility] [id number] [address] [place] [address] 17 Dec, 2016 Bipolar 1 disorder, mixed F3 1.60 [facility] [address] [facility] [id number] [address] [place] [address] Dec, Bipolar 1 disorder, mixed F3 1.60 [facility] [address] [facility] [id number] [address] [place] [address] Dec, Bipolar 1 disorder, mixed F3 1.60 [facility] [address] [facility] [id number] [address] [place] [address] Dec, Low back pain M54.5 and Recu rrent urinary tract infection N39.0 [facility] [address] [facility] [id number] [address] [place] [address] Nov, Bipolar 1 disorder, mixed F3 1.60 [facility] [address] [facility] [id number] [address] [place] [address] Nov, Bipolar 1 disorder, mixed F3 1.60 [facility] [address] [place] [id number] [address] [place] [address] Nov, Bipolar 1 disorder, mixed F3 1.60 [facility] [address] [facility] [id number] [address] [place] [address] Nov, Bipolar 1 disorder, mixed F3 1.60 [facility] [address] [facility] [id number] [address] [place] [address] Nov, [facility] [address] [facility] [id number] [address] [place] [address] Nov, Anesthesia of skin R20.0 ; F requent UTI N39.0 ; Tobacco abuse Z72.0 and Colon cancer screening Z12.11 [facility] [address] [facility] [id number] [address] [place] [address] Nov, Bipolar 1 disorder, mixed F3 1.60 [facility] [address] [facility] [id number] [address] [place] [address] October, Bipolar 1 disorder, mixed F3 1.60 [facility] [address] [facility] [id number] [address] [place] [address] October, Bipolar 1 disorder, mixed F3 1.60 [facility] [address] [place] [id number] [address] [place] [address] October, Bipolar 1 disorder, mixed F3 1.60 [place] [address] [address] October, Bipolar 1 disorder, mixed F3 1.60 [place] [address] [address] October, Bipolar 1 disorder, mixed F3 1.60 [place] [address] [address] October, Cervicalgia M54.2 and Bipola r 1 disorder, mixed F31.60 [place] [address] [address] October, Hypertension I10 ; Hyperlipi demia, unspecified hyperlipidemia type E78.5 and Family history of thyroid disease Z83.49 [place] [address] [address] October, [place] [address] [address] October, Hypertension I10 ; Hyperlipi demia, unspecified hyperlipidemia type E78.5 and Family history of thyroid problem Z83.49 [place] [address] [address] October, Bipolar 1 disorder, mixed F3 1.60 [place] [address] [address] [place] [id number] [place] [address] Sep, Bipolar 1 disorder, mixed F3 1.60 [place] [address] [address] Sep, Bipolar 1 disorder, mixed F3 1.60 [place] [address] [address] [place] [id number] [place] [address] Sep, Bipolar 1 disorder, mixed F3 1.60 [place] [address] [address] Sep, History of colon polyps Z86. 010 and Hematochezia K92.1 [place] [id number] [place], [place] [address] Sep, Major depressive disorder, r ecurrent episode, moderate F33.1 [place] [address] [address] [place] [id number] [place] [address] Sep, Bipolar 1 disorder, mixed F3 1.60 [place] [address] [address] [place] [id number] [place] [address] Aug, Hot flashes due to menopause N95.1 [place] [address] [place] [id number] [place] [address] Aug, Bipolar 1 disorder, mixed F3 1.60 [place] [address] [address] Aug, [place] [address] [address] Aug, Bipolar 1 disorder, mixed F3 1.60 [place] [address] [address] Aug, Bipolar 1 disorder, mixed F3 1.60 [place] [address] [place] [id number] [address] [place] [address] Aug, Hot flashes due to menopause N95.1 ; Cervicalgia M54.2 and Ataxia R27.0 [facility] [address] [place] [id number] [address] [place] [address] Jul, Bipolar 1 disorder, mixed F3 1.60 [place] [address] [place] [id number] [address] [place] [address] Jul, Bipolar 1 disorder, mixed F3 1.60 [place] [address] [place] [id number] [address] [place] [address] Jul, Bipolar 1 disorder, mixed F3 1.60 [place] [address] [address] Jul, Bipolar 1 disorder, mixed F3 1.60 [place] [address] Jul, Bipolar 1 disorder, mixed F3 1.60 [place] [address] Jul, Cervicalgia M54.2 ; Tremor R 25.1 ; Hearing abnormally acute, unspecified laterality H93.239 ; Alopecia L65.9 ; Encounter for immunization Z23 and Family history of thyroid disease Z83.49 [place] [address] Jul, Bipolar 1 disorder, mixed F3 1.60 [place] [address] [place] [address] Jun, [place] [address] Jun, Hearing disorder, unspecifie d laterality H93.299 [place] [address] Jun, Bipolar 1 disorder, mixed F3 1.60 [place] [address] [address] Jun, Bipolar 1 disorder, mixed F3 1.60 [place] [address] [place] 4[address] Jun, Allergic rhinitis J30.9 [place] [address] [place] 4[address]32[address] Jun, Bipolar 1 disorder, mixed F3 1.60 [place] [address] [place] [id number] Jun, Bipolar 1 disorder, mixed F3 1.60 [place] [address] [address] Jun, Allergic rhinitis J30.9 [facility] [address] [id number] [address] [place] [address] Jun, Allergic rhinitis J30.9 [facility] [address] [id number] [address] [place] [address] Jun, Bipolar 1 disorder, mixed F3 1.60 [facility] [address] [id number] [address] [place] [address] May, Bipolar 1 disorder, mixed F3 1.60 [facility] [address] [id number] [address] [place] [address] May, Bipolar 1 disorder, mixed F3 1.60 [facility] [address] [facility] [id number] [address] [place] [address] May, [facility] [address] [facility] [id number] [address] [place] [address] May, Bipolar 1 disorder, mixed F3 1.60 [facility] [address] [id number] [address] [place] [address] May, Bipolar 1 disorder, mixed F3 1.60 [facility] [address] [facility] [id number] [address] [place] [address] May, [facility] [address] [facility] [id number] [address] [place] [address] May, [facility] [address] [facility] [id number] [address] [place] [address] May, [facility] [address] [facility] [id number] [address] [place] [address] May, Abdominal pain, unspecified location R10.9 [facility] [address] [facility] [id number] [address] [place] [address] May, [facility] [address] [facility] [id number] [address] [place] [address] Apr, Hematuria R31.9 ; Ataxia R27 .0 and Hearing loss, unspecified laterality H91.90 [facility] [address] [place] [address] Apr, Bipolar 1 disorder, mixed F3 1.60 [facility] [address] [place] [id number] [address] [place] [address] Apr, Acute effusion of both middl e ears H65.193 [facility] [address] [address] Apr, Hematuria R31.9 and Pyelonep hritis N12 [place] [address] Apr, [place] [address] Mar, Bipolar 1 disorder, mixed F3 1.60 [facility] [address] [address] Mar, [facility] [address] [address] Mar, Bipolar 1 disorder, mixed F3 1.60 [place] [address] Mar, Bipolar 1 disorder, mixed F3 1.60 [facility] [address] [place] 460432[address] Mar, Encounter for immunization Z 23 and Gastritis without bleeding, unspecified chronicity, unspecified gastritis type K29.70 [facility] [address] [place] [id number] [address] [place] [address] Mar, Bipolar 1 disorder, mixed F3 1.60 and Grief F43.20 [place] [address] [place] [id number] [address] [place] [address] Mar, Gastritis without bleeding, unspecified chronicity, unspecified gastritis type K29.70 [place] [address] [place] [address] 05 Mar, 2016 Bipolar 1 disorder, mixed F3 1.60 [place] [address] [place] 460432[address] 05 Mar, 2016 Gastritis without bleeding, unspecified chronicity, unspecified gastritis type K29.70 [facility] [address] [place] [id number] [place] [address] Mar, [place] [address] [place] [address] Feb, Bipolar 1 disorder, mixed F3 1.60 [place] [address] Feb, Bipolar 1 disorder, mixed F3 1.60 and Grief F43.20 [place] [address] [address] Feb, Gastritis without bleeding, unspecified chronicity, unspecified gastritis type K29.70 [place] [address] [address] 14 Feb, 2016 Bipolar 1 disorder, mixed F3 1.60 [facility] [address] [address] 09 Feb, 2016 Gastroesophageal reflux dise ase, esophagitis presence not specified K21.9 [facility] [address] [place] [id number] [place] [address] Jan, Bipolar 1 disorder, mixed F3 1.60 [facility] [address] [address] Jan, Bipolar 1 disorder, mixed F3 1.60 and Unsteady gait R26.81 [place] [address] [place] [id number] [place] [address] Jan, Bipolar 1 disorder, mixed F3 1.60 [facility] [address] [place] [address] Jan, Bipolar 1 disorder, mixed F3 1.60 and Other skilled nursing (current) drug therapy Z79.899 [facility] [address] [id number] [address] [place] [address] Jan, Bipolar 1 disorder, mixed F3 1.60 [facility] [address] [facility] [id number] [address] [place] [address] Jan, Bipolar 1 disorder, mixed F3 1.60 [facility] [address] [facility] [id number] [address] [place] [address] Jan, Bipolar 1 disorder, mixed F3 1.60 ; Grief F43.20 and Other skilled nursing (current) drug therapy Z79.899 [place] [id number] [facility] [id number] [address] [place] [address] Jan, Bipolar 1 disorder, mixed F3 1.60 [place] [address] [place] [id number] [address] [place] [address] Dec, [place] [address] [facility] [id number] [address] [place] [address] Dec, Bipolar 1 disorder, mixed F3 1.60 ; Vitamin D deficiency, unspecified E55.9 ; H/O allergic rhinitis Z87.09 ; Other chronic pain G89.29 and Dorsalgia, unspecified M54.9 [place] [address] [place] [id number] [place] [address] Dec, [place] [address] [facility] [id number] [address] [place] [address] Dec, Bipolar 1 disorder, mixed F3 1.60 [place] [address] [facility] [id number] [address] [place] [address] Dec, Major depressive disorder, r ecurrent episode, moderate F33.1 [place] [address] [facility] [id number] [address] [place] [address] Dec, Major depressive disorder, r ecurrent episode, moderate F33.1 [place] [address] [facility] [id number] [address] [place] [address] Nov, [facility] [address] [facility] [id number] [address] [place] [address] Nov, Bipolar 1 disorder, mixed F3 1.60 [place] [address] [facility] [id number] [address] [place] [address] Nov, Major depressive disorder, r ecurrent episode, moderate F33.1 [facility] [address] [facility] [id number] [address] [place] [address] Nov, Cervicalgia M54.2 ; Arthralg ia of hip, unspecified laterality M25.559 ; Allergic rhinitis J30.9 and Hormone replacement therapy Z79.890 [facility] [address] [facility] [id number] [address] [place] [address] Nov, Other seasonal allergic rhin itis J30.2 [place] [address] [facility] [id number] [address] [place] [address] October, Major depressive disorder, r ecurrent episode, moderate F33.1 [place] [address] [facility] [id number] [address] [place] [address] October, Major depressive disorder, r ecurrent episode, moderate F33.1 and Arthralgia of hip, unspecified laterality M25.559 [place] [address] [facility] [id number] [address] [place] [address] October, Grief F43.20 ; Hypertension I10 ; Hyperlipidemia, unspecified hyperlipidemia type E78.5 ; Other chronic pain G89.29 and Allergic rhinitis, unspecified allergic rhinitis type J30.9 [facility] [address] [facility] [id number] [address] [place] [address] October, Major depressive disorder, r ecurrent episode, moderate F33.1 [place] [address] [facility] [id number] [address] [place] [address] Sep, Major depressive disorder, r ecurrent episode, moderate F33.1 [place] [address] [facility] [id number] [address] [place] [address] Sep, [facility] [address] [facility] [id number] [address] [place] [address] Sep, Major depressive disorder, r ecurrent episode, moderate F33.1 [facility] [address] [facility] [id number] [address] [place] [address] Sep, Grief F43.20 [facility] [address] [facility] [id number] [address] [place] [address] Aug, Major depressive disorder, r ecurrent episode, moderate F33.1 [place] [address] [facility] [id number] [address] [place] [address] Aug, Bipolar 1 disorder, mixed F3 1.60 [facility] [address] [place] [id number] [place] [address] Aug, Allergic rhinitis J30.9 ; Ce rvicalgia M54.2 and Low back pain M54.5 [facility] [address] [facility] [id number] [address] [place] [address] Aug, Major depressive disorder, r ecurrent episode, moderate F33.1 [facility] [address] [facility] [id number] [address] [place] [address] Aug, Sinusitis J32.9 and Tobacco 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 [facility] [address] [place] [id number] [address] [place] [address] Aug, [facility] [address] [facility] [id number] [address] [place] [address] Aug, Depressive disorder, not els ewhere classified F32.9 ; Hormone replacement therapy Z79.[address] scan, head R93.0 [facility] [address] [facility] [id number] [address] [place] [address] Aug, Major depressive disorder, r ecurrent episode, moderate F33.1 [facility] [address] [facility] [id number] [address] [place] [address] Jul, Major depressive disorder, r ecurrent episode, moderate F33.1 [facility] [address] [place] [id number] [address] [place] [address] Jul, Abdominal pain R10.9 and Hyp ertension I10 [facility] [address] [place] [id number] [address] [place] [address] Jul, [facility] [address] [place] [id number] [address] [place] [address] Jul, Major depressive disorder, r ecurrent episode, moderate F33.1 [facility] [address] [address] Jul, [facility] [address] [place] [id number] [address] [place] [address] Jul, [facility] [address] [place] [id number] [address] [place] [address] Jun, [facility] [address] [place] [id number] [address] [place] [address] Jun, Depressive disorder, not els ewhere classified F32.9 [facility] [address] [place] [id number] [address] [place] [address] Jun, [facility] [address] [place] [id number] [address] [place] [address] Jun, [facility] [id number] [place] [address] Jun, Arthralgia of hip, unspecifi ed laterality M25.559 ; Bruising, spontaneous R23.3 and Night sweats R61 [facility] [address] [facility] [id number] [address] [place] [address] Jun, [facility] [address] [place] [id number] [address] [place] [address] Jun, [facility] [address] [place] [id number] [address] [place] [address] May, [facility] [address] [id number] [address] [place] [address] May, Myalgia M79.1 and Screening, lipid Z13.220 [facility] [address] [facility] [id number] [address] [place] [address] Apr, Status post cervical spinal fusion Z98.1 ; Fibromyalgia M79.7 and Unsteady gait R26.81 [facility] [address] [id number] [address] [place] [address] Nov, [facility] [address] [id number] [address] [place] [address] Nov, [facility] [address] [id number] [address] [place] [address] October, [facility] [address] [facility] [id number] [address] [place] [address] October, [facility] [address] [id number] [address] [place] [address] October, [facility] [address] [facility] [id number] [address] [place] [address] October, [facility] [address] [facility] [id number] [address] [place] [address] October, [facility] [address] [facility] [id number] [address] [place] [address] October, Dysuria 788.1 ; Nausea 787.0 2 and Urinary tract infection 599.0 [facility] [address] [id number] [address] [place] [address] Sep, [facility] [address] [facility] [id number] [address] [place] [address] Sep, [facility] [address] [facility] [id number] [address] [place] [address] Aug, [facility] [address] [id number] [facility] [place] [address] 25 Aug, 2014 [facility] [address] [id number] [facility] [place] [address] 24 Aug, 2014 [facility] [address] [id number] [address] [place] [address], [place] [address] 24 Aug, 2014 [facility] [address] [id number] [address] [place] [address], [place] [address] 23 Aug, 2014 [facility] [address] [id number] [address] [place] [address], [place] [address] 19 Aug, 2014 [facility] [address] [id number] [address] [place] [address], [place] [address] 19 Aug, 2014 [facility] [address] [id number] [address] [place] [address], [place] [address] 19 Aug, 2014 [facility] [address] [id number] [address] [place] [address], [place] [address] 19 Aug, 2014 [facility] [address] [id number] [address] [place] [address], [place] [address] 18 Aug, 2014 [facility] [address] [id number] [address] [place] [address], [place] [address] 18 Aug, 2014 [facility] [address] [id number] [address] [place] [address], [place] [address] 13 Aug, 2014 [facility] [address] [id number] [address] [place] [address], [place] [address] 13 Aug, 2014 [facility] [address] [id number] [address] [place] [address], [place] [address] 11 Aug, 2014 [facility] [address] [id number] [address] [place] [address], [place] [address] 11 Aug, 2014 [facility] [address] [id number] [address] [place] [address], [place] [address] 06 Aug, 2014 [facility] [address] [id number] [address] [place] [address], [place] [address] Aug, 2014 [facility] [address] [id number] [address] [place] [address], [place] [address] Aug, [facility] [address] [id number] [address] [place] [address], [place] [address] Aug, [facility] [address] [id number] [address] [place] [address], [place] [address] Aug, [facility] [address] [id number] [address] [place] [address], [place] [address] Aug, [facility] [address] [id number] [address] [place] [address], [place] [address] Aug, [facility] [address] [id number] [address] [place] [address], [place] [address] Jul, 2014 [facility] [address] [id number] [address] [place] [address], [place] [address] Jul, [facility] [address] [id number] [address] [place] [address], [place] [address] Jul, 2014 [facility] [address] [id number] [address] [place] [address], [place] [address] Jul, 2014 [facility] [address] [id number] [address] [place] [address], [place] [address] Jul, [facility] [address] [id number] [address] [place] [address], [place] [address] Jul, 2014 [facility] [address] [id number] [address] [place] [address], [place] [address] Jul, 2014 [facility] [address] [id number] [address] [place] [address], [place] [address] Jul, 2014 [facility] [address] [id number] [address] [place] [address], [place] [address] Jul, 2014 [facility] [address] [id number] [address] [place] [address], [place] [address] Jul, 2014 [facility] [address] [id number] [address] [place] [address], [place] [address] Jul, 2014 [facility] [address] [id number] [address] [place] [address], [place] [address] Jul, 2014 [facility] [address] [id number] [address] [place] [address], [place] [address] Jul, 2014 [facility] [address] [id number] [address] [place] [address], [place] [address] Jul, [facility] [address] [id number] [address] [place] [address], [place] [address] Jun, [facility] [address] [id number] [address] [place] [address], [place] [address] Jun, [facility] [address] [id number] [address] [place] [address], [place] [address] Jun, [facility] [address] [id number] [address] [place] [address], [place] [address] Jun, [facility] [address] [id number] [address] [place] [address], [place] [address] Jun, [facility] [address] [id number] [address] [place] [address], [place] [address] Jun, [facility] [address] [id number] [address] [place] [address], [place] [address] May, [facility] [address] [id number] [address] [place] [address], [place] [address] May, [facility] [address] [id number] [address] [place] [address], [place] [address] May, [facility] [address] [id number] [address] [place] [address], [place] [address] May, [facility] [address] [id number] [address] [place] [address], [place] [address] May, [facility] [address] [id number] [address] [address] May, [facility] [address] [id number] [address] [place] [address], [place] [address] Apr, [facility] [address] [id number] [address] [place] [address], [place] [address] Apr, [facility] [address] [id number] [address] [place] [address], [place] [address] Apr, [facility] [address] [id number] [address] [place] [id number] Apr, [facility] [address] [id number] [address] [place] [address], [place] [address] Apr, [facility] [address] [id number] [address] [place] [id number] Apr, [facility] [address] [id number] [address] [place] [address], [place] [address] Mar, [facility] [address] [id number] [address] [place] [id number] Mar, [facility] [address] [id number] [address] [place] [id number] Mar, [facility] [address] [id number] [address] [place] [id number] Mar, [facility] [address] [id number] [address] [place] [id number] Mar, [facility] [address] [id number] [address] [place] [id number] Mar, [facility] [address] [id number] [address] [place] [id number] Mar, [facility] [address] [id number] [address] [place] [id number] Mar, [facility] [address] [id number] [address] [place] [id number] Mar, [facility] [address] [id number] [address] [place] [address], [place] [address] Mar, [facility] [address] [id number] [address] [place] [address], [place] [address] Mar, [facility] [address] [id number] [address] [place] [address], [place] [address] Mar, [facility] [address] [id number] [address] [place] [address], [place] [address] 30 Feb, 2014 [facility] [address] [id number] [address] [place] [address], [place] [address] Feb, [facility] [address] [id number] [address] [place] [address], [place] [address] Feb, [facility] [address] [id number] [address] [place] [address], [place] [address] Feb, [facility] [address] [id number] [address] [place] [address], [place] [address] Feb, [facility] [address] [id number] [address] [place] [address], [place] [address] Feb, [facility] [address] [id number] [address] [place] [address], [place] [address] Feb, [facility] [address] [id number] [address] [place] [address], [place] [address] Jan, [facility] [address] [id number] [address] [place] [address], [place] [address] Jan, [facility] [address] [id number] [address] [place] [address], [place] [address] Jan, [facility] [address] [id number] [address] [place] [address], [place] [address] Dec, [facility] [address] [id number] [address] [place] [address], [place] [address] Dec, [facility] [address] [id number] [address] [place] [address], [place] [address] Dec, [facility] [address] [id number] [address] [place] [address], [place] [address] Dec, [facility] [address] [id number] [address] [place] [address], [place] [address] Sep, [facility] [address] [id number] [address] [place] [address], [place] [address] Sep, [facility] [address] [id number] [address] [place] [address], [place] [address] Sep, [facility] [address] [id number] [address] [place] [address], [place] [address] Sep, [facility] [address] [id number] [address] [place] [address], [place] [address] Sep, [facility] [address] [id number] [address] [place] [address], [place] [address] Sep, [facility] [address] [id number] [address] [place] [address], [place] [address] Sep, [facility] [address] [id number] [address] [place] [address], [place] [address] Sep, [facility] [address] [id number] [address] [place] [address], [place] [address] Aug, [facility] [address] [id number] [address] [place] [address], [place] [address] Aug, [facility] [address] [id number] [address] [place] [address], [place] [address] May, [facility] [address] [id number] [address] [place] [address], [place] [address] May, [facility] [address] [id number] [address] [place] [address], [place] [address] Apr, [facility] [address] [id number] [address] [place] [address], [place] [address] Apr, [facility] [address] [id number] [address] [place] [address], [place] [address] Apr, [facility] [address] [id number] [address] [place] [address], [place] [address] Apr, [facility] [address] [id number] [address] [place] [address], [place] [address] Apr, [facility] [address] [id number] [address] [place] [address], [place] [address] Apr, [facility] [address] [id number] [address] [place] [address], [place] [address] May, [facility] [address] [id number] [address] [place] [address], [place] [address] 18 May, 2012 [facility] [address] [id number] [address] [place] [address], [place] [address] 15 May, 2012 [facility] [address] [id number] [address] [place] [address], [place] [address] 15 May, 2012 [facility] [address] [id number] [address] [place] [address], [place] [address] May, [facility] [address] [id number] [address] [place] [address], [place] [address] May, [facility] [address] [id number] [address] [place] [address], [place] [address] 13 Apr, 2012 [facility] [address] [id number] [address] [place] [address], [place] [address] Apr, [facility] [address] [id number] [address] [place] [address], [place] [address] Apr, [facility] [address] [id number] [address] [place] [address], [place] [address] Apr, [facility] [address] [id number] [address] [place] [address], [place] [address] Apr, [facility] [address] [id number] [address] [place] [address], [place] [address] Apr, [facility] [address] [id number] [address] [place] [address], [place] [address] 07 Apr, 2012 [facility] [address] [id number] [address] [place] [address], [place] [address] Apr, [facility] [address] [id number] [address] [place] [address], [place] [address] Apr, [facility] [address] [id number] [address] [place] [address], [place] [address] Apr, [facility] [address] [id number] [address] [place] [address], [place] [address] Mar, [facility] [address] [id number] [address] [place] [address], [place] [address] Mar, [facility] [address] [id number] [address] [place] [address], [place] [address] Mar, [facility] [address] [id number] [address] [place] [address], [place] [address] Mar, [facility] [address] [id number] [address] [place] [address], [place] [address] Mar, [facility] [address] [id number] [address] [place] [address], [place] [address] Mar, [facility] [address] [id number] [address] [place] [address], [place] [address] Mar, [facility] [address] [id number] [address] [place] [address], [place] [address] Mar, [facility] [address] [id number] [address] [place] [address], [place] [address] Mar, [facility] [address] [id number] [address] [place] [address], [place] [address] 25 Feb, 2012 [facility] [address] [id number] [address] [place] [address], [place] [address] 16 Sep2011 [facility] [address] [id number] [address] [place] [address], [place] [address] Feb, [facility] [address] [id number] [facility] [place] [address] Jan, [facility] [address] [id number] [address] [place] [address], [place] [address] Jan, [facility] [address] [id number] [address] [place] [address], [place] [address] Jan, [facility] [address] [id number] [address] [place] [address], [place] [address] Jan, [facility] [address] [id number] [address] [place] [address], [place] [address] Jan, [facility] [address] [id number] [address] [place] [address], [place] [address] Jan, [facility] [address] [id number] [address] [place] [address], [place] [address] Jan, [facility] [address] [id number] [address] [place] [address], [place] [address] Jan, [facility] [address] [id number] [address] [place] [address], [place] [address] Jan, [facility] [address] [id number] [address] [place] [address], [place] [address] Jan, [facility] [address] [id number] [address] [place] [address], [place] [address] Dec, [facility] [address] [id number] [address] [place] [address], [place] [address] Dec, [facility] [address] [id number] [address] [place] [address], [place] [address] Dec, [facility] [address] [id number] [address] [place] [address], [place] [address] Dec, [facility] [address] [id number] [address] [place] [address], [place] [address] Nov, [facility] [address] [id number] [address] [place] [address], [place] [address] 08 Nov, 2011 [facility] [address] [id number] [address] [place] [address], [place] [address] 07 Nov, 2011 [facility] [address] [id number] [address] [place] [address], [place] [address] October, [facility] [address] [id number] [address] [place] [address], [place] [address] October, [facility] [address] [id number] [address] [place] [address], [place] [address] October, [facility] [address] [id number] [address] [place] [address], [place] [address] October, [facility] [address] [id number] [address] [place] [address], [place] [address] October, [facility] [address] [id number] [address] [place] [address], [place] [address] October, [facility] [address] [id number] [address] [place] [address], [place] [address] Aug, [facility] [address] [id number] [address] [place] [address], [place] [address] Mar, [facility] [address] [id number] [address] [place] [address], [place] [address] Nov, [facility] [address] [id number] [address] [place] [address], [place] [address] May, [facility] [address] [id number] [address] [place] [address] May, [facility] [address] [id number] [address] [place] [address] Apr, [facility] [address] [id number] [address] [place] [address], [place] [address] Mar, [facility] [address] [id number] [address] [place] [address] Mar, IMMUNIZATIONS No Known Immunizations SOCIAL HISTORY Never Assessed REASON FOR VISIT BH f/u PLAN OF CARE Activity Details Follow Up 1 Week Reason: F/U VITAL SIGNS MEDICATIONS Unknown Medications RESULTS No Results PROCEDURES Procedure Date Ordered Result Body Site [facility] VISIT MENTAL HEALTH ESTAB PT May 30, 2018 Psychotherapy, patient and family, 45 minutes, established p atient May 30, 2018 visit needs to be added to the same day medical May 30, 2018 INSTRUCTIONS MEDICATIONS ADMINISTERED No [...] depression Hospitalization History psychiatric hospitalizations (last i [email or web address]) x5
--- OUTSIDE RECORDS SUMMARY | 2019-06-19 05:26 | XMS REPORT ---
Author Author Sydnie MORTON Organization [facility] Address [address] [place] [address] Care Team Providers Care Vice President Of Communications Name Role Phone JOHN MORTON Unavailable PROBLEMS Type Condition ICD9-CM Code ARA75-GG Code Onset Dates Condition S tatus SNOMED Code Problem Hormone replacement therapy Z79.890 Ac tive 147751043 Problem Abnormal CT scan, head R93.0 Active 573169685 Problem Sensorineural hearing loss (SNHL) of both ears H90 .3 Active 097843578 Problem Bruising, spontaneous R23.3 Active 196171394 Problem Generalized anxiety disorder F41.1 A ctive 15638648 Problem Arthralgia of hip, unspecified laterality M25.559 Active 90544592 Problem Hematuria, unspecified type R31.9 Ac tive 24288402 Problem Night sweats R61 Active 6538844 0 Problem Hammer toe of right foot M20.41 Activ e 262857882 Problem Major depressive disorder, recurrent episode, moderate F33.1 Active 269306255 Problem Imbalance R26.89 Active 027752153 Problem Slow transit constipation K59.01 Acti ve 31302427 Problem Plantar wart of right foot B07.0 Act mitchell [id number] Problem Grief F43.20 Active 92631751 Problem Hyperlipidemia, unspecified hyperlipidemia type E7 8.5 Active 43854805 Problem Hypertension I10 Active 2610714 3 Problem Bladder spasm N32.89 Active 346079 006 Problem Fibromyalgia M79.7 Active 9285998 7 Problem Sciatica of left side M54.32 Active 01913122 Problem Acute left-sided low back pain with left-sided sciatica M54.42 Active 411859752 Problem Bipolar 1 disorder, mixed F31.60 Acti ve 57013740 Problem Ataxia R27.0 Active 30960315 Problem Other chronic pain G89.29 Active 8 1471422 Problem Gastritis without bleeding, unspecified chronicity, unspecified gastritis type K29.70 Active 153360355 Problem Hot flashes due to menopause N95.1 A ctive 481423622 Problem History of colon polyps Z86.010 Active 397112003 Problem Hearing loss, unspecified laterality H91.90 Active 73129063 Problem Allergic rhinitis J30.9 Active 61 596335 ALLERGIES No Information ENCOUNTERS Encounter Location Date Diagnosis [facility] [place] [address] [address] May, [facility] [place] [address] [address] May, [facility] [place] [address] [address] May, [facility] [place] [address] [address] Apr, [facility] [place] [address] [address] Apr, [facility] [place] [address] [address] Mar, Bipolar 1 disorder, mixed F3 1.60 [facility] [place] [address] [address] 17 Mar, 2018 [facility] [place] [address] [address] 03 Mar, 2018 Slow transit constipation K5 9.01 ; Encounter for immunization Z23 and Generalized anxiety disorder F41.1 [facility] [place] [address] [address] 27 Feb, 2018 Bipolar 1 disorder, mixed F3 1.60 [facility] [place] [address] [address] 26 Feb, 2018 Allergic rhinitis J30.9 [facility] [place] [address] [place] [id number] [place] [address] 24 Feb, 2018 Bipolar 1 disorder, mixed F3 1.60 [facility] [place] [address] [place] [address] 20 Feb, 2018 Bipolar 1 disorder, mixed F3 1.60 and Generalized anxiety disorder F41.1 [facility] [place] [id number] [place] [address] 13 Feb, 2018 Bipolar 1 disorder, mixed F3 1.60 [facility] [place] [address] [address] 11 Feb, 2018 Allergic rhinitis J30.9 [facility] [place] [address] [address] 05 Feb, 2018 [place] [address] [address] Jan, Bipolar 1 disorder, mixed F3 1.60 [place] [address] [place] [id number] [place] [address] Jan, Low back pain M54.5 ; Hyperl ipidemia, unspecified hyperlipidemia type E78.5 and Bipolar 1 disorder, mixed F31.60 [place] [address] [address] Jan, Bipolar 1 disorder, mixed F3 1.60 [place] [address] [address] Jan, Bipolar 1 disorder, mixed F3 1.60 [place] [address] [address] Jan, Bipolar 1 disorder, mixed F3 1.60 [place] [address] [place] [id number] [place] [address] Jan, Bipolar 1 disorder, mixed F3 1.60 [place] [address] [place] [id number] [place] [address] Dec, Bipolar 1 disorder, mixed F3 1.60 ; Generalized anxiety disorder F41.1 and Other roasterman (current) drug therapy Z79.899 [place] [address] [place] [id number] [place] [address] Dec, Other assisted (current) dr bin feliz Z79.899 [facility] [place] [address] [facility] [id number] [address] [place], [place] [address] Dec, Bipolar 1 disorder, mixed F3 1.60 [facility] [place] [address] [facility] [id number] [address] [place] [address] Dec, Bipolar 1 disorder, mixed F3 1.60 [facility] [place] [address] [facility] [id number] [address] [place] [address] Nov, Bipolar 1 disorder, mixed F3 1.60 [facility] [place] [address] [facility] [id number] [address] [place] [address] Nov, Bipolar 1 disorder, mixed F3 1.60 [facility] [place] [address] [facility] [id number] [address] [place] [address] Nov, Bipolar 1 disorder, mixed F3 1.60 [facility] [place] [address] [facility] [id number] [address] [place] [address] Nov, Allergic rhinitis J30.9 [facility] [place] [address] [facility] [id number] [address] [place] [address] Nov, Allergic rhinitis J30.9 [facility] [place] [address] [facility] [id number] [address] [place] [address] Nov, [facility] [place] [address] [facility] [id number] [address] [place] [address] Nov, Bipolar 1 disorder, mixed F3 1.60 [facility] [place] [address] [facility] [id number] [address] [place] [address] Nov, Fibromyalgia M79.7 and Aller gic rhinitis J30.9 [facility] [place] [address] [facility] [id number] [address] [place] [address] October, Bipolar 1 disorder, mixed F3 1.60 [facility] [address] [facility] [id number] [address] [place] [address] October, Acute nasopharyngitis J00 [facility] [address] [facility] [id number] [address] [place] [address] October, Bitten or stung by nonvenomo us insect and other nonvenomous arthropods, initial encounter W57.XXXA and Insect bite (nonvenomous) of abdominal wall, initial encounter S30.861A [facility] [place] [address] [facility] [id number] [address] [place] [address] October, Insect bite (nonvenomous) of abdominal wall, initial encounter S30.861A ; Bitten or stung by nonvenomous insect and other nonvenomous arthropods, initial encounter W57.XXXA ; Allergic rhinitis J30.9 and Low back pain M54.5 [facility] [place] [address] [facility] [id number] [address] [place] [address] October, Bipolar 1 disorder, mixed F3 1.60 [facility] [place] [address] [facility] [id number] [address] [place] [address] October, [facility] [place] [address] [facility] [id number] [address] [place] [address] October, [facility] [place] [address] [facility] [id number] [address] [place] [address] October, Bipolar 1 disorder, mixed F3 1.60 [facility] [place] [address] [facility] [id number] [address] [place] [address] Sep, Bipolar 1 disorder, mixed F3 1.60 [facility] [place] [address] [facility] [id number] [address] [place] [address] Sep, Other chronic pain G89.29 [facility] [place] [address] [facility] [id number] [address] [place] [address] Sep, [facility] [place] [address] [facility] [id number] [address] [place] [address] Sep, Bipolar 1 disorder, mixed F3 1.60 [facility] [place] [address] [facility] [id number] [address] [place] [address] Sep, Allergic rhinitis J30.9 and Sciatica of left side M54.32 [facility] [place] [address] [facility] [id number] [address] [place] [address] Sep, Bipolar 1 disorder, mixed F3 1.60 [facility] [place] [address] [facility] [id number] [address] [place] [address] Sep, Bipolar 1 disorder, mixed F3 1.60 and Generalized anxiety disorder F41.1 [facility] [place] [address] [facility] [id number] [address] [place] [phone] Aug, [facility] [place] [address] [facility] [id number] [address] [place] [address] Aug, Bipolar 1 disorder, mixed F3 1.60 [facility] [place] [address] [place] [id number] [place] [address] Aug, Bipolar 1 disorder, mixed F3 1.60 [facility] [place] [address] [place] [id number] [place] [address] Aug, [facility] [place] [address] [facility] [id number] [address] [place] [address] Aug, Generalized anxiety disorder F41.1 [facility] [place] [address] [facility] [id number] [address] [place] [address] Aug, Bipolar 1 disorder, mixed F3 1.60 [facility] [place] [address] [place] [id number] [place] [address] Aug, Plantar wart of right foot B 07.0 [facility] [place] [address] [facility] [id number] [address] [place] [address] Aug, Bipolar 1 disorder, mixed F3 1.60 [facility] [place] [address] [place] [id number] [place] [address] Jul, Bipolar 1 disorder, mixed F3 1.60 [facility] [place] [address] [place] [id number] [place] [address] Jul, [facility] [place] [address] [facility] [id number] [address] [place] [address] Jul, Bipolar 1 disorder, mixed F3 1.60 [facility] [place] [address] [place] [id number] [place] [phone] 09 Jul, 2017 Generalized anxiety disorder F41.1 [facility] [place] [address] [place] [id number] [place] [address] Jul, Bipolar 1 disorder, mixed F3 1.60 [place] [address] [place] [id number] [place] [address] Jul, Acute left-sided low back pa in with left-sided sciatica M54.42 [facility] [place] [address] [place] [id number] [place] [address] 05 Jul, 2017 Coccydynia M53.3 [facility] [place] [address] [place] [id number] [place] [phone] Jun, Bipolar 1 disorder, mixed F3 1.60 [facility] [address] [place] [id number] [place] [address] Jun, Acute nasopharyngitis J00 [facility] [place] [address] [place] [id number] [place] [address] Jun, Bipolar 1 disorder, mixed F3 1.60 [facility] [place] [address] [place] [id number] [place] [address] Jun, Fibromyalgia M79.7 [facility] [place] [address] [place] [id number] [place] [address] Jun, Bipolar 1 disorder, mixed F3 1.60 [facility] [place] [address] [place] [id number] [place] [address] Jun, Fibromyalgia M79.7 and Bipol ar 1 disorder, mixed F31.60 [facility] [place] [address] [place] [id number] [place] [address] May, Bipolar 1 disorder, mixed F3 1.60 ; Generalized anxiety disorder F41.1 and Other assisted (current) drug therapy Z79.899 [place] [address] [address] May, Bipolar 1 disorder, mixed F3 1.60 [facility] [address] [address] 14 May, 2017 Cough R05 and Body aches R52 [facility] [address] [address] 10 May, 2017 Bladder spasm N32.89 [address] Acu te cystitis without hematuria N30.00 [place] [address] [address] 07 May, 2017 Bipolar 1 disorder, mixed F3 1.60 [place] [address] [address] 30 Apr, 2017 [place] [address] [address] Apr, Major depressive disorder, r ecurrent episode, moderate F33.1 and Encounter for immunization Z23 [place] [address] [address] Apr, Bipolar 1 disorder, mixed F3 1.60 [place] [address] [address] Apr, Bipolar 1 disorder, mixed F3 1.60 [place] [address] [address] 16 Apr, 2017 Bipolar 1 disorder, mixed F3 1.60 [place] [address] [address] 13 Apr, 2017 Yeast vaginitis B37.3 [place] [address] [address] 09 Apr, 2017 Bipolar 1 disorder, mixed F3 1.60 [facility] [address] [place] [id number] [place] [address] 07 Apr, [address]03[address] for immunization Z23 [facility] [place] [address] [facility] [id number] [address] [place] [address] Apr, Bipolar 1 disorder, mixed F3 1.60 [facility] [place] [address] [place] [id number] [place] [address] Mar, Bipolar 1 disorder, mixed F3 1.60 [facility] [place] [address] [place] [id number] [place] [address] Mar, Bipolar 1 disorder, mixed F3 1.60 [place] [address] [address] Mar, Imbalance R26.89 [address] Encount er for immunization Z23 [facility] [place] [address] [place] [id number] [place] [address] Mar, Generalized anxiety disorder F41.1 [facility] [place] [address] [place] [id number] [place] [address] Mar, Bipolar 1 disorder, mixed F3 1.60 [place] [address] [place] [id number] [place] [address] Mar, Generalized anxiety disorder F41.1 [place] [address] [place] [id number] [place] [address] Mar, Bipolar 1 disorder, mixed F3 1.60 [facility] [place] [address] [place] [id number] [place] [address] Mar, Bipolar 1 disorder, mixed F3 1.60 [facility] [place] [address] [place] [id number] [place] [address] Feb, Bipolar 1 disorder, mixed F3 1.60 [facility] [place] [address] [facility] [id number] [address] [place] [address] Feb, Bipolar 1 disorder, mixed F3 1.60 and Generalized anxiety disorder F41.1 [facility] [place] [address] [facility] [id number] [address] [place] [address] Feb, Gastritis without bleeding, unspecified chronicity, unspecified gastritis type K29.70 ; Hammer toe of right foot M20.41 and Other viral warts B07.8 [place] [address] [facility] [id number] [address] [place] [address] 20 Feb, 2017 Bipolar 1 disorder, mixed F3 1.60 [place] [address] [facility] [id number] [address] [place] [address] 13 Feb, 2017 Bipolar 1 disorder, mixed F3 1.60 [place] [address] [facility] [id number] [address] [place] [id number] 05 Feb, 2017 Bipolar 1 disorder, mixed F3 1.60 [place] [address] [facility] [id number] [address] [place] [address] 31 Jan, 2017 Encounter for screening mamm ogram for breast cancer Z12.31 ; Other viral warts B07.8 and Allergic rhinitis J30.9 [place] [address] [facility] [id number] [address] [place] [address] Jan, Bipolar 1 disorder, mixed F3 1.60 [place] [address] [facility] [id number] [address] [place] [id number] Jan, Bipolar 1 disorder, mixed F3 1.60 [place] [address] [address] [facility] [id number] [address] [place] [id number] Jan, [place] [address] [address] [facility] [id number] [address] [place] [id number] Jan, Bipolar 1 disorder, mixed F3 1.60 [place] [address] [address] [facility] [id number] [address] [place] [phone] Jan, Bipolar 1 disorder, mixed F3 1.60 [place] [address] [address] [facility] [id number] [address] [place] [id number] Jan, Allergic rhinitis J30.9 ; He maturia R31.9 and Colon cancer screening Z12.11 [place] [address] [id number] [address] [place] [id number] Dec, Bipolar 1 disorder, mixed F3 1.60 [facility] [place] [address] [facility] [id number] [address] [place] [id number] Dec, Bipolar 1 disorder, mixed F3 1.60 ; Generalized anxiety disorder F41.1 and Other assisted (current) drug therapy Z79.899 [facility] [place] [address] [facility] [id number] [address] [place] [phone] Dec, Bipolar 1 disorder, mixed F3 1.60 [facility] [place] [address] [id number] [address] [place] [id number] Dec, Bipolar 1 disorder, mixed F3 1.60 [facility] [place] [address] [facility] [id number] [address] [place] [phone] Dec, Bipolar 1 disorder, mixed F3 1.60 [facility] [place] [address] [facility] [id number] [address] [place] [phone] Dec, Low back pain M54.5 and Recu rrent urinary tract infection N39.0 [facility] [place] [address] [facility] [id number] [address] [place] [phone] Nov, Bipolar 1 disorder, mixed F3 1.60 [facility] [place] [address] [facility] [id number] [address] [place] [phone] Nov, Bipolar 1 disorder, mixed F3 1.60 [facility] [place] [address] [facility] [id number] [address] [place] [id number] Nov, Bipolar 1 disorder, mixed F3 1.60 [facility] [place] [address] [facility] [id number] [address] [place] [address] [address] Nov, Bipolar 1 disorder, mixed F3 1.60 [facility] [place] [address] [facility] [id number] [address] [place] [address] Nov, [facility] [place] [address] [place] [id number] [address] [place] [address] Nov, Anesthesia of skin R20.0 ; F requent UTI N39.0 ; Tobacco abuse Z72.0 and Colon cancer screening Z12.11 [place] [address] [address] Nov, Bipolar 1 disorder, mixed F3 1.60 [place] [address] [address] October, Bipolar 1 disorder, mixed F3 1.60 [place] [address] [address] October, Bipolar 1 disorder, mixed F3 1.60 [place] [address] [address] October, Bipolar 1 disorder, mixed F3 1.60 [place] [address] [address] October, Bipolar 1 disorder, mixed F3 1.60 [place] [address] [address] October, Bipolar 1 disorder, mixed F3 1.60 [place] [address] [address] October, Cervicalgia M54.2 and Bipola r 1 disorder, mixed F31.60 [place] [address] [address] October, Hypertension I10 ; Hyperlipi demia, unspecified hyperlipidemia type E78.5 and Family history of thyroid disease Z83.49 [place] [address] [address] October, [address] [address] October, Hypertension I10 ; Hyperlipi demia, unspecified hyperlipidemia type E78.5 and Family history of thyroid problem Z83.49 [place] [address] [address] October, Bipolar 1 disorder, mixed F3 1.60 [facility] [place] [address] [facility] [id number] [address] [place] [address] Sep, Bipolar 1 disorder, mixed F3 1.60 [facility] [place] [address] [facility] [id number] [address] [place] [address] Sep, Bipolar 1 disorder, mixed F3 1.60 [facility] [place] [address] [facility] [id number] [address] [place] [address] Sep, Bipolar 1 disorder, mixed F3 1.60 [facility] [place] [address] [facility] [id number] [address] [place] [address] Sep, History of colon polyps Z86. 010 and Hematochezia K92.1 [facility] [place] [address] [facility] [id number] [address] [place] [address] Sep, Major depressive disorder, r ecurrent episode, moderate F33.1 [facility] [place] [address] [facility] [id number] [address] [place] [address] Sep, Bipolar 1 disorder, mixed F3 1.60 [facility] [place] [address] [facility] [id number] [address] [place] [address] Aug, Hot flashes due to menopause N95.1 [facility] [place] [address] [facility] [id number] [address] [place] [address] Aug, Bipolar 1 disorder, mixed F3 1.60 [facility] [place] [address] [facility] [id number] [address] [place] [address] Aug, [facility] [place] [address] [facility] [id number] [address] [place] [address] Aug, Bipolar 1 disorder, mixed F3 1.60 [facility] [place] [address] [facility] [id number] [address] [place] [address] Aug, Bipolar 1 disorder, mixed F3 1.60 [facility] [place] [address] [place] [id number] [address] [place] [address] Aug, Hot flashes due to menopause N95.1 ; Cervicalgia M54.2 and Ataxia R27.0 [place] [address] [address] Jul, Bipolar 1 disorder, mixed F3 1.60 [place] [address] [address] Jul, Bipolar 1 disorder, mixed F3 1.60 [place] [address] [address] Jul, Bipolar 1 disorder, mixed F3 1.60 [place] [address] Jul, Bipolar 1 disorder, mixed F3 1.60 [place] [address] [address] Jul, Bipolar 1 disorder, mixed F3 1.60 [place] [address] [address] Jul, Cervicalgia M54.2 ; Tremor R 25.1 ; Hearing abnormally acute, unspecified laterality H93.239 ; Alopecia L65.9 ; Encounter for immunization Z23 and Family history of thyroid disease Z83.49 [place] [address] [address] Jul, Bipolar 1 disorder, mixed F3 1.60 [place] [address] [address] Jun, [place] [address] [address] Jun, Hearing disorder, unspecifie d laterality H93.299 [place] [address] [address] Jun, Bipolar 1 disorder, mixed F3 1.60 [place] [address] [place] [id number] Jun, Bipolar 1 disorder, mixed F3 1.60 [facility] [place] [address] [id number] [address] [place] [address] Jun, Allergic rhinitis J30.9 [facility] [place] [address] [id number] [address] [place] [address] Jun, Bipolar 1 disorder, mixed F3 1.60 [facility] [place] [address] [id number] [address] [place] [address] Jun, Bipolar 1 disorder, mixed F3 1.60 [facility] [place] [address] [id number] [address] [place] [address] Jun, Allergic rhinitis J30.9 [facility] [place] [address] [id number] [address] [place] [address] Jun, Allergic rhinitis J30.9 [facility] [place] [address] [id number] [address] [place] [address] Jun, Bipolar 1 disorder, mixed F3 1.60 [facility] [place] [address] [id number] [address] [place] [address] May, Bipolar 1 disorder, mixed F3 1.60 [facility] [place] [address] [facility] [id number] [address] [place] [address] May, Bipolar 1 disorder, mixed F3 1.60 [facility] [place] [address] [id number] [address] [place] [address] May, [facility] [place] [address] [id number] [address] [place] [address] May, Bipolar 1 disorder, mixed F3 1.60 [facility] [place] [address] [facility] [id number] [address] [place] [address] May, Bipolar 1 disorder, mixed F3 1.60 [facility] [place] [address] [facility] [id number] [address] [place] [address] May, [facility] [place] [address] [facility] [id number] [address] [place] [address] May, [facility] [place] [address] [facility] [id number] [address] [place] [address] May, [facility] [place] [address] [facility] [id number] [address] [place] [address] May, Abdominal pain, unspecified location R10.9 [facility] [place] [address] [facility] [id number] [address] [place] [address] May, [facility] [place] [address] [facility] [id number] [address] [place] [address] Apr, Hematuria R31.9 ; Ataxia R27 .0 and Hearing loss, unspecified laterality H91.90 [facility] [place] [address] [facility] [id number] [address] [place] [address] Apr, Bipolar 1 disorder, mixed F3 1.60 [facility] [address] [facility] [id number] [address] [place] [address] Apr, Acute effusion of both middl e ears H65.193 [facility] [place] [address] [facility] [id number] [address] [place] [address] Apr, Hematuria R31.9 and Pyelonep hritis N12 [facility] [place] [address] [facility] [id number] [address] [place] [address] Apr, [facility] [place] [address] [facility] [id number] [address] [place] [address] Mar, Bipolar 1 disorder, mixed F3 1.60 [facility] [place] [address] [facility] [id number] [address] [place] [address] Mar, [facility] [place] [address] [facility] [id number] [address] [place] [address] Mar, Bipolar 1 disorder, mixed F3 1.60 [facility] [place] [address] [facility] [id number] [address] [place] [address] Mar, Bipolar 1 disorder, mixed F3 1.60 [facility] [place] [address] [facility] [id number] [address] [place] [address] 13 Mar, 2016 Encounter for immunization Z 23 and Gastritis without bleeding, unspecified chronicity, unspecified gastritis type K29.70 [facility] [place] [address] [facility] [id number] [address] [place], [place] [id number] Mar, Bipolar 1 disorder, mixed F3 1.60 and Grief F43.20 [place] [id number] [place] [address] Mar, Gastritis without bleeding, unspecified chronicity, unspecified gastritis type K29.70 [place] [address] Mar, Bipolar 1 disorder, mixed F3 1.60 [place] [address] [place] [address] Mar, Gastritis without bleeding, unspecified chronicity, unspecified gastritis type K29.70 [facility] [place] [address] [place] [id number] [address] [place] [address] Mar, [facility] [place] [address] [place] [id number] [address] [place], [place] [address] 27 Feb, 2016 Bipolar 1 disorder, mixed F3 1.60 [place] [address] [place] [id number] [address] [place] [address] 22 Feb, 2016 Bipolar 1 disorder, mixed F3 1.60 and Grief F43.20 [facility] [place] [address] [place] [id number] [address] [place] [address] Feb, Gastritis without bleeding, unspecified chronicity, unspecified gastritis type K29.70 [facility] [place] [address] [place] [id number] [address] [place] [address] 14 Feb, 2016 Bipolar 1 disorder, mixed F3 1.60 [facility] [address] [facility] [id number] [address] [place] [address] 09 Feb, 2016 Gastroesophageal reflux dise ase, esophagitis presence not specified K21.9 [place] [address] [place] [id number] [address] [place] [address] Jan, Bipolar 1 disorder, mixed F3 1.60 [place] [address] [place] [id number] [address] [place] [address] Jan, Bipolar 1 disorder, mixed F3 1.60 and Unsteady gait R26.81 [place] [address] [place] [id number] [address] [place] [address] Jan, Bipolar 1 disorder, mixed F3 1.60 [place] [address] [place] [id number] [address] [place] [address] Jan, Bipolar 1 disorder, mixed F3 1.60 and Other assisted (current) drug therapy Z79.899 [place] [address] [place] [id number] [place] [address] Jan, Bipolar 1 disorder, mixed F3 1.60 [place] [address] [place] [id number] [address] [place] [address] Jan, Bipolar 1 disorder, mixed F3 1.60 [place] [address] [place] [id number] Jan, Bipolar 1 disorder, mixed F3 1.60 ; Grief F43.20 and Other assisted (current) drug therapy Z79.899 [place] [address] [address] Jan, Bipolar 1 disorder, mixed F3 1.60 [place] [address] [place] [id number] [address] [place] [address] Dec, [place] [address] [place] [id number] Dec, Bipolar 1 disorder, mixed F3 1.60 ; Vitamin D deficiency, unspecified E55.9 ; H/O allergic rhinitis Z87.09 ; Other chronic pain G89.29 and Dorsalgia, unspecified M54.9 [place] [address] [place] [id number] [address] [place] [address] Dec, [facility] [place] [address] [id number] [address] [place] [address] Dec, Bipolar 1 disorder, mixed F3 1.60 [facility] [place] [address] [facility] [id number] [address] [place] [address] Dec, Major depressive disorder, r ecurrent episode, moderate F33.1 [facility] [place] [address] [facility] [id number] [address] [place] [address] Dec, Major depressive disorder, r ecurrent episode, moderate F33.1 [place] [address] [facility] [id number] [address] [place] [address] Nov, [place] [address] [facility] [id number] [address] [place] [address] Nov, Bipolar 1 disorder, mixed F3 1.60 [place] [address] [facility] [id number] [address] [place] [address] Nov, Major depressive disorder, r ecurrent episode, moderate F33.1 [place] [address] [facility] [id number] [address] [place] [address] Nov, Cervicalgia M54.2 ; Arthralg ia of hip, unspecified laterality M25.559 ; Allergic rhinitis J30.9 and Hormone replacement therapy Z79.890 [facility] [address] [facility] [id number] [address] [place] [address] Nov, Other seasonal allergic rhin itis J30.2 [facility] [place] [address] [facility] [id number] [address] [place] [address] October, Major depressive disorder, r ecurrent episode, moderate F33.1 [facility] [place] [address] [facility] [id number] [address] [place] [address] October, Major depressive disorder, r ecurrent episode, moderate F33.1 and Arthralgia of hip, unspecified laterality M25.559 [facility] [place] [address] [address] October, Grief F43.20 ; Hypertension I10 ; Hyperlipidemia, unspecified hyperlipidemia type E78.5 ; Other chronic pain G89.29 and Allergic rhinitis, unspecified allergic rhinitis type J30.9 [place] [address] [address] October, Major depressive disorder, r ecurrent episode, moderate F33.1 [place] [address] [address] Sep, Major depressive disorder, r ecurrent episode, moderate F33.1 [place] [address] [address] Sep, [place] [address] [address] Sep, Major depressive disorder, r ecurrent episode, moderate F33.1 [place] [address] [address] Sep, Grief F43.20 [place] [address] [address] Aug, Major depressive disorder, r ecurrent episode, moderate F33.1 [place] [address] [address] Aug, Bipolar 1 disorder, mixed F3 1.60 [place] [address] [address] Aug, Allergic rhinitis J30.9 ; Ce rvicalgia M54.2 and Low back pain M54.5 [place] [address] [address] Aug, Major depressive disorder, r ecurrent episode, moderate F33.1 [facility] [address] [address] Aug, Sinusitis J32.9 and Tobacco 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 [facility] [place] [address] [facility] [id number] [address] [place] [address] Aug, [facility] [place] [address] [place] [id number] [address] [place] [address] Aug, Depressive disorder, not els ewhere classified F32.9 ; Hormone replacement therapy Z79.[address] scan, head R93.0 [facility] [place] [address] [facility] [id number] [address] [place] [address] Aug, Major depressive disorder, r ecurrent episode, moderate F33.1 [facility] [place] [address] [facility] [id number] [address] [place] [address] Jul, Major depressive disorder, r ecurrent episode, moderate F33.1 [facility] [place] [address] [place] [id number] [address] [place] [address] Jul, Abdominal pain R10.9 and Hyp ertension I10 [facility] [place] [address] [facility] [id number] [address] [place] [address] Jul, [facility] [place] [address] [place] [id number] [address] [place] [id number] Jul, Major depressive disorder, r ecurrent episode, moderate F33.1 [facility] [place] [address] [place] [id number] [address] [place] [address] Jul, [facility] [place] [address] [facility] [id number] [address] [place] [address] Jul, [facility] [place] [address] [facility] [id number] [address] [place] [id number] Jun, [facility] [place] [address] [id number] [address] [place] [id number] Jun, Depressive disorder, not els ewhere classified F32.9 [facility] [place] [address] [id number] [address] [place] [id number] Jun, [facility] [place] [address] [id number] [address] [place] [id number] Jun, [facility] [place] [address] [id number] [address] [place] [id number] Jun, Arthralgia of hip, unspecifi ed laterality M25.559 ; Bruising, spontaneous R23.3 and Night sweats R61 [facility] [place] [address] [id number] [address] [place] [id number] Jun, [facility] [place] [address] [facility] [id number] [address] [place] [phone] Jun, [facility] [place] [address] [id number] [address] [place] [id number] May, [facility] [place] [address] [id number] [address] [place] [id number] May, Myalgia M79.1 and Screening, lipid Z13.220 [facility] [place] [address] [id number] [address] [place] [id number] Apr, Status post cervical spinal fusion Z98.1 ; Fibromyalgia M79.7 and Unsteady gait R26.81 [facility] [place] [address] [id number] [address] [place] [phone] Nov, [facility] [place] [address] [id number] [address] [place] [id number] Nov, [facility] [place] [address] [facility] [id number] [address] [place] [phone] October, [facility] [place] [address] [id number] [address] [place] [id number] October, [facility] [place] [address] [id number] [address] [place] [id number] October, [facility] [place] [address] [facility] [id number] [address] [place] [phone] October, [facility] [place] [address] [id number] [address] [place] [id number] October, [facility] [address] [id number] [address] [place] [phone] October, Dysuria 788.1 ; Nausea 787.0 2 and Urinary tract infection 599.0 [facility] [address] [id number] [address] [place] [address], [place] [id number] 14 Sep, 2014 [facility] [address] [address] [id number] [address] [place] [address] Sep, [facility] [address] [id number] [address] [place] [address] Aug, [facility] [address] [id number] [address] [place] [address] Aug, [facility] [address] [id number] [address] [place] [address] Aug, [facility] [address] [id number] [address] [place] [address] Aug, [facility] [address] [id number] [address] [place] [address] Aug, [facility] [address] [id number] [address] [place] [address] Aug, [facility] [address] [id number] [address] [place] [address] Aug, [facility] [address] [id number] [address] [place] [address] Aug, [facility] [address] [id number] [address] [place] [address] Aug, [facility] [address] [id number] [address] [place] [address] Aug, [facility] [address] [id number] [address] [place] [address] Aug, [facility] [address] [id number] [address] [place] [address] 13 Aug, 2014 [facility] [address] [id number] [facility] [place] [address] 13 Aug, 2014 [facility] [address] [id number] [address] [place] [address], [place] [address] Aug, [facility] [address] [id number] [address] [place] [address], [place] [address] Aug, [facility] [address] [id number] [address] [place] [address], [place] [address] Aug, [facility] [address] [id number] [address] [place] [address], [place] [address] Aug, [facility] [address] [id number] [address] [place] [address], [place] [address] Aug, [facility] [address] [id number] [address] [place] [address], [place] [address] Aug, [facility] [address] [id number] [address] [place] [address], [place] [address] Aug, [facility] [address] [id number] [address] [place] [address], [place] [address] Aug, [facility] [address] [id number] [address] [place] [address], [place] [address] Aug, [facility] [address] [id number] [address] [place] [address], [place] [address] Jul, 2014 [facility] [address] [id number] [address] [place] [address], [place] [address] Jul, 2014 [facility] [address] [id number] [address] [place] [address], [place] [address] Jul, 2014 [facility] [address] [id number] [address] [place] [address], [place] [address] Jul, 2014 [facility] [address] [id number] [address] [place] [address], [place] [address] Jul, 2014 [facility] [address] [id number] [address] [place] [address], [place] [address] Jul, 2014 [facility] [address] [id number] [address] [place] [address], [place] [address] Jul, 2014 [facility] [address] [id number] [address] [place] [address], [place] [address] Jul, 2014 [facility] [address] [id number] [address] [place] [address], [place] [address] Jul, 2014 [facility] [address] [id number] [address] [place] [address], [place] [address] Jul, 2014 [facility] [address] [id number] [address] [place] [address], [place] [address] Jul, 2014 [facility] [address] [id number] [address] [place] [address], [place] [address] Jul, 2014 [facility] [address] [id number] [address] [place] [address] Jul, 2014 [facility] [address] [id number] [address] [place] [address], [place] [address] Jul, [facility] [address] [id number] [address] [place] [address] Jun, [facility] [address] [id number] [address] [place] [address] Jun, [facility] [address] [id number] [address] [place] [address] Jun, [facility] [address] [id number] [address] [place] [address] Jun, [facility] [address] [id number] [address] [place] [address] Jun, [facility] [address] [id number] [address] [place] [address] Jun, [facility] [address] [id number] [address] [place] [address] May, [facility] [address] [id number] [address] [place] [address], [place] [address] May, [facility] [address] [id number] [address] [place] [address], [place] [address] May, [facility] [address] [id number] [address] [place] [address], [place] [address] May, [facility] [address] [id number] [address] [place] [address], [place] [address] May, [facility] [address] [id number] [address] [place] [address], [place] [address] May, [facility] [address] [id number] [address] [place] [address], [place] [address] Apr, [facility] [address] [id number] [address] [place] [address], [place] [address] Apr, [facility] [address] [id number] [address] [place] [address], [place] [address] Apr, [facility] [address] [id number] [address] [place] [address], [place] [address] Apr, [facility] [address] [id number] [address] [place] [address], [place] [address] Apr, [facility] [address] [id number] [address] [place] [address], [place] [address] Apr, [facility] [address] [id number] [address] [place] [address] Mar, [facility] [address] [id number] [address] [place] [address], [place] [address] Mar, [facility] [address] [id number] [address] [place] [address], [place] [address] Mar, [facility] [address] [id number] [address] [place] [address] Mar, [facility] [address] [id number] [address] [place] [address], [place] [address] 07 Mar, 2013 [facility] [address] [id number] [address] [place] [address], [place] [address] Mar, 2013 [facility] [address] [id number] [address] [place] [address], [place] [address] Mar, 2013 [facility] [address] [id number] [address] [place] [address], [place] [address] Mar, 2013 [facility] [address] [id number] [address] [place] [address], [place] [address] Mar, 2013 [facility] [address] [id number] [address] [place] [address], [place] [address] Mar, 2013 [facility] [address] [id number] [address] [place] [address], [place] [address] Mar, [facility] [address] [id number] [address] [place] [address], [place] [address] Mar, [facility] [address] [id number] [address] [place] [address], [place] [address] 30 Sep, 2013 [facility] [address] [id number] [address] [place] [address], [place] [address] 29 Sep, 2013 [facility] [address] [id number] [address] [place] [address], [place] [address] 29 Sep, 2013 [facility] [address] [id number] [address] [place] [address], [place] [address] 23 Sep, 2013 [facility] [address] [id number] [address] [place] [address], [place] [address] 23 Sep, 2013 [facility] [address] [id number] [address] [place] [address], [place] [address] 08 Feb, 2013 [facility] [address] [id number] [address] [place] [address], [place] [address] 08 Feb, 2013 [facility] [address] [id number] [address] [place] [address], [place] [address] Jan, [facility] [address] [id number] [facility] [place] [address] Jan, [facility] [address] [id number] [address] [place] [address], [place] [address] Jan, [facility] [address] [id number] [address] [place] [address], [place] [address] Dec, [facility] [address] [id number] [address] [place] [address], [place] [address] Dec, [facility] [address] [id number] [address] [place] [address], [place] [address] Dec, [facility] [address] [id number] [address] [place] [address], [place] [address] Dec, [facility] [address] [id number] [address] [place] [address], [place] [address] Sep, [facility] [address] [id number] [address] [place] [address], [place] [address] Sep, [facility] [address] [id number] [address] [place] [address], [place] [address] Sep, [facility] [address] [id number] [address] [place] [address], [place] [address] Sep, [facility] [address] [id number] [address] [place] [address], [place] [address] Sep, [facility] [address] [id number] [address] [place] [address], [place] [address] Sep, [facility] [address] [id number] [address] [place] [address], [place] [address] Sep, [facility] [address] [id number] [address] [place] [address], [place] [address] Sep, [facility] [address] [id number] [address] [place] [address], [place] [address] Aug, [facility] [address] [id number] [address] [place] [address], [place] [address] Aug, [facility] [address] [id number] [address] [place] [address], [place] [address] May, [facility] [address] [id number] [address] [place] [address], [place] [address] May, [facility] [address] [id number] [address] [place] [address], [place] [address] Apr, [facility] [address] [id number] [address] [place] [address], [place] [address] Apr, [facility] [address] [id number] [address] [place] [address], [place] [address] Apr, [facility] [address] [id number] [address] [place] [address], [place] [address] Apr, [facility] [address] [id number] [address] [place] [address], [place] [address] Apr, [facility] [address] [id number] [address] [place] [address], [place] [address] Apr, [facility] [address] [id number] [address] [place] [address], [place] [address] May, [facility] [address] [id number] [address] [place] [address], [place] [address] 18 May, 2012 [facility] [address] [id number] [address] [place] [address], [place] [address] 15 May, 2012 [facility] [address] [id number] [address] [place] [address], [place] [address] 15 May, 2012 [facility] [address] [id number] [address] [place] [address], [place] [address] 13 May, 2012 [facility] [address] [id number] [address] [place] [address], [place] [address] 13 May, 2012 [facility] [address] [id number] [address] [place] [address], [place] [address] 13 Apr, 2012 [facility] [address] [id number] [address] [place] [address], [place] [address] 13 Apr, 2012 [facility] [address] [id number] [address] [place] [address], [place] [address] Apr, [facility] [address] [id number] [address] [place] [address], [place] [address] Apr, [facility] [address] [id number] [address] [place] [address], [place] [address] Apr, [facility] [address] [id number] [address] [place] [address], [place] [address] Apr, [facility] [address] [id number] [address] [place] [address], [place] [address] Apr, [facility] [address] [id number] [address] [place] [address], [place] [address] Apr, [facility] [address] [id number] [address] [place] [address], [place] [address] Apr, [facility] [address] [id number] [address] [place] [address], [place] [address] Apr, [facility] [address] [id number] [address] [place] [address], [place] [address] Mar, [facility] [address] [id number] [address] [place] [address], [place] [address] Mar, [facility] [address] [id number] [address] [place] [address], [place] [address] Mar, [facility] [address] [id number] [address] [place] [address], [place] [address] Mar, [facility] [address] [id number] [address] [place] [address], [place] [address] Mar, [facility] [address] [id number] [address] [place] [address], [place] [address] Mar, [facility] [address] [id number] [address] [place] [address], [place] [address] Mar, [facility] [address] [id number] [address] [place] [address], [place] [address] Mar, [facility] [address] [id number] [address] [place] [address], [place] [address] Mar, [facility] [address] [id number] [address] [place] [address], [place] [address] Feb, [facility] [address] [id number] [address] [place] [address], [place] [address] 16 Feb, 2012 [facility] [address] [id number] [address] [place] [address], [place] [address] Feb, [facility] [address] [id number] [address] [place] [address], [place] [address] Jan, [facility] [address] [id number] [address] [place] [address], [place] [address] Jan, [facility] [address] [id number] [address] [place] [address], [place] [address] Jan, [facility] [address] [id number] [address] [place] [address], [place] [address] Jan, [facility] [address] [id number] [address] [place] [address], [place] [address] Jan, [facility] [address] [id number] [address] [place] [address], [place] [address] Jan, [facility] [address] [id number] [address] [place] [address], [place] [address] Jan, [facility] [address] [id number] [address] [place] [address], [place] [address] Jan, [facility] [address] [id number] [address] [place] [address], [place] [address] Jan, [facility] [address] [id number] [address] [place] [address], [place] [address] Jan, [facility] [address] [id number] [address] [place] [address], [place] [address] 31 Dec, 2011 [facility] [address] [id number] [address] [place] [address], [place] [address] Dec, [facility] [address] [id number] [address] [place] [address], [place] [address] Dec, [facility] [address] [id number] [address] [place] [address], [place] [address] 17 Dec, 2011 [facility] [address] [id number] [address] [place] [address], [place] [address] Nov, [facility] [address] [id number] [address] [place] [address], [place] [address] Nov, [facility] [address] [id number] [address] [place] [address], [place] [address] Nov, [facility] [address] [id number] [address] [place] [address], [place] [address] October, [facility] [address] [id number] [address] [place] [address], [place] [address] October, [facility] [address] [id number] [address] [place] [address], [place] [address] October, [facility] [address] [id number] [address] [place] [address], [place] [address] October, [facility] [address] [id number] [address] [place] [address], [place] [address] October, [facility] [address] [id number] [address] [place] [address], [place] [address] October, [facility] [address] [id number] [address] [place] [address], [place] [address] Aug, [facility] [address] [id number] [address] [place] [address], [place] [address] Mar, [facility] [address] [id number] [address] [place] [address], [place] [address] Nov, [facility] [place] [address] [facility] [id number] [address] [place] [address] May, [facility] [place] [address] [facility] [id number] [address] [place] [address] May, [facility] [place] [address] [facility] [id number] [address] [place] [address] Apr, [facility] [place] [address] [facility] [id number] [address] [place] [address] Mar, [facility] [place] [address] [facility] [id number] [address] [place] [address] Mar, IMMUNIZATIONS No Known Immunizations SOCIAL HISTORY Never Assessed REASON FOR VISIT f/u PLAN OF CARE Activity Details Follow Up Next available Reason: F/U VITAL SIGNS MEDICATIONS Unknown Medications RESULTS No Results PROCEDURES Procedure Date Ordered Result Body Site [facility] VISIT MENTAL HEALTH ESTAB PT Apr 16, 2018 Psychotherapy, patient &/family, 45 minutes, established patient Apr 16, 2018 INSTRUCTIONS MEDICATIONS ADMINISTERED No Known Medications MEDICAL (GENERAL) HISTORY Type Description Date Medical History Severe spinal stenosis [facility] cervical spine CT and MRI done 10/2014 [...] bleed repaired 05/19/2015 Surgical History cystescope 09/05/2017 Hospitalization History surgeries Hospitalization History depression Hospitalization History psychiatric hospitalizations (last i ncident 2013) x5
--- OUTSIDE RECORDS SUMMARY | 2019-06-19 05:27 | XMS REPORT ---
Author Author Sydnie HANCOCK [facility] Address [address] [place] [address] Care Team Providers Care Operational Risk Consultant Name Role Phone NAHOMY HANCOCK Unavailable PROBLEMS Type Condition ICD9-CM Code PAQ70-JF Code Onset Dates Condition S tatus SNOMED Code Problem Hormone replacement therapy Z79.890 Ac tive 519633265 Problem Abnormal CT scan, head R93.0 Active 657631036 Problem Sensorineural hearing loss (SNHL) of both ears H90 .3 Active 349130387 Problem History of colon polyps Z86.010 Active 864757160 Problem Bruising, spontaneous R23.3 Active 031991066 Problem Generalized anxiety disorder F41.1 A ctive 21143651 Problem Arthralgia of hip, unspecified laterality M25.559 Active 57198559 Problem Hematuria, unspecified type R31.9 Ac tive 86435878 Problem Imbalance R26.89 Active 003040472 Problem Hammer toe of right foot M20.41 Activ e 656169460 Problem Plantar wart of right foot B07.0 Act mitchell [id number] Problem Sciatica of left side M54.32 Active 20483694 Problem Hyperlipidemia, unspecified hyperlipidemia type E7 8.5 Active 70828666 Problem Hypertension I10 Active 3478356 3 Problem Night sweats R61 Active 4986277 0 Problem Fibromyalgia M79.7 Active 0512403 7 Problem Major depressive disorder, recurrent episode, moderate F33.1 Active 614269782 Problem Acute left-sided low back pain with left-sided sciatica M54.42 Active 845023271 Problem Bladder spasm N32.89 Active 575230 006 Problem Gastritis without bleeding, unspecified chronicity, unspecified gastritis type K29.70 Active 689392960 Problem Bipolar 1 disorder, mixed F31.60 Acti ve 31765807 Problem Grief F43.20 Active 22036577 Problem Other chronic pain G89.29 Active 8 0800224 Problem Allergic rhinitis J30.9 Active 61 971988 Problem Hot flashes due to menopause N95.1 A ctive 740064325 Problem Ataxia R27.0 Active 23052369 Problem Hearing loss, unspecified laterality H91.90 Active 29227030 ALLERGIES Substance Reaction Event Type Date Status Morphine Sulfate Unknown Drug Allergy Jan, Active Iodine Unknown Drug Allergy Jan, Active Lyrica 75 Mg Capsule "felt weird" Non Drug Allergy Jan, Act mitchell ENCOUNTERS Encounter Location Date Diagnosis [facility] [address] [facility] [id number] [address] [place] [id number] Apr, [facility] [address] [facility] [id number] [address] [place] [address] Mar, [facility] [address] [place] [id number] [address] [place] [address] Mar, [facility] [address] [place] [id number] [address] [place] [address] Mar, [facility] [address] [facility] [id number] [address] [place] [phone] Mar, [facility] [address] [place] [id number] [address] [place] [id number] 27 Feb, 2018 [facility] [address] [facility] [id number] [address] [place] [id number] 24 Feb, 2018 Bipolar 1 disorder, mixed F3 1.60 [facility] [address] [place] [id number] [address] [place] [address] 20 Feb, 2018 Bipolar 1 disorder, mixed F3 1.60 and Generalized anxiety disorder F41.1 [facility] [address] [facility] [id number] [address] [place] [id number] 13 Feb, 2018 Bipolar 1 disorder, mixed F3 1.60 [facility] [address] [facility] [id number] [address] [place] [id number] 11 Feb, 2018 Allergic rhinitis J30.9 [facility] [address] [facility] [id number] [address] [place] [id number] Feb, [facility] [address] [place] [id number] [address] [place] [address] Jan, Bipolar 1 disorder, mixed F3 1.60 [facility] [address] [address] Jan, Low back pain M54.5 ; Hyperl ipidemia, unspecified hyperlipidemia type E78.5 and Bipolar 1 disorder, mixed F31.60 [facility] [address] [address] Jan, Bipolar 1 disorder, mixed F3 1.60 [facility] [address] [place] [id number] Jan, Bipolar 1 disorder, mixed F3 1.60 [facility] [address] [address] Jan, Bipolar 1 disorder, mixed F3 1.60 [facility] [address] [address] Jan, Bipolar 1 disorder, mixed F3 1.60 [facility] [address] [address] Dec, Bipolar 1 disorder, mixed F3 1.60 ; Generalized anxiety disorder F41.1 and 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.899 [facility] [address] [place] [id number] [address] [place] [address] Dec, 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 Z79.899 [facility] [address] [place] [id number] [address] [place] [address] Dec, Bipolar 1 disorder, mixed F3 1.60 [facility] [address] [place] [id number] [place] [address] Dec, Bipolar 1 disorder, mixed F3 1.60 [facility] [address] [place] [id number] [place] [address] Nov, Bipolar 1 disorder, mixed F3 1.60 [facility] [address] [facility] [id number] [address] [place] [id number] 27 Nov, 2017 Bipolar 1 disorder, mixed F3 1.60 [facility] [address] [facility] [id number] [address] [place] [address] Nov, Bipolar 1 disorder, mixed F3 1.60 [place] [address] [place] [id number] [place] [address] 11 Nov, 2017 Allergic rhinitis J30.9 [facility] [address] [facility] [id number] [address] [place] [address] Nov, Allergic rhinitis J30.9 [place] [address] [place] [id number] [place] [address] Nov, [facility] [address] [address] Nov, Bipolar 1 disorder, mixed F3 1.60 [place] [address] [place] [id number] [address] [place] [phone] 06 Nov, 2017 Fibromyalgia M79.7 and Aller gic rhinitis J30.9 [place] [address] [place] [id number] [address] [place] [address] October, Bipolar 1 disorder, mixed F3 1.60 [facility] [address] [place] [id number] [address] [place] [address] October, Acute nasopharyngitis J00 [facility] [address] [place] [id number] [address] [place] [address] October, Bitten or stung by nonvenomo us insect and other nonvenomous arthropods, initial encounter W57.XXXA and Insect bite (nonvenomous) of abdominal wall, initial encounter S30.861A [facility] [address] [place] [id number] [address] [place] [address] October, Insect bite (nonvenomous) of abdominal wall, initial encounter S30.861A ; Bitten or stung by nonvenomous insect and other nonvenomous arthropods, initial encounter W57.XXXA ; Allergic rhinitis J30.9 and Low back pain M54.5 [facility] [address] [facility] [id number] [address] [place] [id number] October, Bipolar 1 disorder, mixed F3 1.60 [facility] [address] [place] [id number] [address] [place] [address] October, [facility] [address] [facility] [id number] [address] [place] [phone] October, [facility] [address] [facility] [id number] [address] [place] [address] October, Bipolar 1 disorder, mixed F3 1.60 [facility] [address] [place] [id number] [address] [place] [address] Sep, Bipolar 1 disorder, mixed F3 1.60 [facility] [address] [place] [id number] [address] [place] [address] Sep, Other chronic pain G89.29 [facility] [address] [place] [id number] [address] [place] [address] Sep, [facility] [address] [place] [id number] [address] [place] [phone] Sep, Bipolar 1 disorder, mixed F3 1.60 [facility] [address] [place] [id number] [address] [place] [address] Sep, Allergic rhinitis J30.9 and Sciatica of left side M54.32 [facility] [address] [place] [id number] [address] [place] [address] Sep, Bipolar 1 disorder, mixed F3 1.60 [facility] [address] [place] [id number] [address] [place] [address] Sep, Bipolar 1 disorder, mixed F3 1.60 and Generalized anxiety disorder F41.1 [facility] [address] [place] [id number] [address] [place] [address] Aug, [facility] [address] [facility] [id number] [address] [place] [address] Aug, Bipolar 1 disorder, mixed F3 1.60 [facility] [address] [facility] [id number] [address] [place] [address] Aug, Bipolar 1 disorder, mixed F3 1.60 [facility] [address] [facility] [id number] [address] [place] [address] Aug, [facility] [address] [facility] [id number] [address] [place] [address] Aug, Generalized anxiety disorder F41.1 [facility] [address] [facility] [id number] [address] [place] [address] Aug, Bipolar 1 disorder, mixed F3 1.60 [facility] [address] [facility] [id number] [address] [place] [address] Aug, Plantar wart of right foot B 07.0 [facility] [address] [facility] [id number] [address] [place] [address] Aug, Bipolar 1 disorder, mixed F3 1.60 [facility] [address] [facility] [id number] [address] [place] [address] Jul, Bipolar 1 disorder, mixed F3 1.60 [facility] [address] [facility] [id number] [address] [place] [address] Jul, [facility] [address] [facility] [id number] [address] [place] [address] Jul, Bipolar 1 disorder, mixed F3 1.60 [facility] [address] [facility] [id number] [address] [place] [address] 09 Jul, 2017 Generalized anxiety disorder F41.1 [facility] [address] [facility] [id number] [address] [place] [phone] 07 Jul, 2017 Bipolar 1 disorder, mixed F3 1.60 [facility] [address] [facility] [id number] [address] [place] [id number] 07 Jul, 2017 Acute left-sided low back pa in with left-sided sciatica M54.42 [place] [address] [place] [id number] [address] [place] [phone] 05 Jul, 2017 Coccydynia M53.3 [place] [address] [place] [id number] [address] [place] [address] Jun, Bipolar 1 disorder, mixed F3 1.60 [facility] [address] [place] [id number] [address] [place] [address] Jun, Acute nasopharyngitis J00 [place] [address] [address] Jun, Bipolar 1 disorder, mixed F3 1.60 [place] [address] [address] Jun, Fibromyalgia M79.7 [place] [address] [address] Jun, Bipolar 1 disorder, mixed F3 1.60 [place] [address] [address] Jun, Fibromyalgia M79.7 and Bipol ar 1 disorder, mixed F31.60 [place] [address] [place] [address] May, Bipolar 1 disorder, mixed F3 1.60 ; Generalized anxiety disorder F41.1 and 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.899 [place] [address] [place] [id number] [address] [place] [address] May, Bipolar 1 disorder, mixed F3 1.60 [facility] [address] [place] [id number] [address] [place] [address] 14 May, 2017 Cough R05 and Body aches R52 [facility] [address] [place] [id number] [address] [place] [address] 10 May, 2017 Bladder spasm N32.89 and Acu te cystitis without hematuria N30.00 [facility] [address] [address] 07 May, 2017 Bipolar 1 disorder, mixed F3 1.60 [facility] [address] [place] [id number] 30 Apr, 2017 [place] [address] Apr, Major depressive disorder, r ecurrent episode, moderate F33.1 and Encounter for immunization Z23 [place] [address] Apr, Bipolar 1 disorder, mixed F3 1.60 [place] [address] [address] Apr, Bipolar 1 disorder, mixed F3 1.60 [place] [address] [address] Apr, Bipolar 1 disorder, mixed F3 1.60 [place] [address] [address] Apr, Yeast vaginitis B37.3 [facility] [address] [address] 09 Apr, 2017 Bipolar 1 disorder, mixed F3 1.60 [facility] [address] [place] [id number] [address] [place] [address] 07 Apr, 2017 Cellulitis L03.[address] for immunization Z23 [facility] [address] [address] Apr, Bipolar 1 disorder, mixed F3 1.60 [facility] [address] [address] Mar, Bipolar 1 disorder, mixed F3 1.60 [place] [address] [address] Mar, Bipolar 1 disorder, mixed F3 1.60 [place] [address] [place] [address] Mar, Imbalance R26.89 and Encount er for immunization Z23 [place] [address] [place] [id number] [place] [address] Mar, Generalized anxiety disorder F41.1 [place] [address] Mar, Bipolar 1 disorder, mixed F3 1.60 [place] [address] [address] Mar, Generalized anxiety disorder F41.1 [place] [address] [place] [id number] [place] [address] Mar, Bipolar 1 disorder, mixed F3 1.60 [place] [address] [address] Mar, Bipolar 1 disorder, mixed F3 1.60 [place] [address] [address] Feb, Bipolar 1 disorder, mixed F3 1.60 [place] [address] [place] [id number] [place] [address] Feb, Bipolar 1 disorder, mixed F3 1.60 and Generalized anxiety disorder F41.1 [place] [address] [place] [id number] [address] [place] [address] Feb, Gastritis without bleeding, unspecified chronicity, unspecified gastritis type K29.70 ; Hammer toe of right foot M20.41 and Other viral warts B07.8 [place] [address] [place] [id number] [address] [place] [address] Feb, Bipolar 1 disorder, mixed F3 1.60 [place] [address] [place] [id number] [address] [place] [address] Feb, Bipolar 1 disorder, mixed F3 1.60 [facility] [address] [facility] [id number] [address] [place] [address] 05 Feb, 2017 Bipolar 1 disorder, mixed F3 1.60 [facility] [address] [facility] [id number] [address] [place], [place] [address] Jan, Encounter for screening mamm ogram for breast cancer Z12.31 ; Other viral warts B07.8 and Allergic rhinitis J30.9 [place] [address] [facility] [id number] [address] [place] [address] Jan, Bipolar 1 disorder, mixed F3 1.60 [place] [address] [facility] [id number] [address] [place] [address] Jan, Bipolar 1 disorder, mixed F3 1.60 [place] [address] [place] [id number] [place] [address] Jan, [place] [address] [place] [id number] [place] [address] Jan, Bipolar 1 disorder, mixed F3 1.60 [place] [address] [facility] [id number] [address] [place] [address] Jan, Bipolar 1 disorder, mixed F3 1.60 [place] [address] [place] [id number] [place] [address] Jan, Allergic rhinitis J30.9 ; He maturia R31.9 and Colon cancer screening Z12.11 [place] [address] [facility] [id number] [address] [place] [address] Dec, Bipolar 1 disorder, mixed F3 1.60 [place] [address] [place] [id number] [place] [address] Dec, Bipolar 1 disorder, mixed F3 1.60 ; Generalized anxiety disorder F41.1 and 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 [facility] [address] [place] [id number] [address] [place] [address] Dec, Bipolar 1 disorder, mixed F3 1.60 [facility] [address] [id number] [address] [place] [address] Dec, Bipolar 1 disorder, mixed F3 1.60 [facility] [address] [facility] [id number] [address] [place] [address] Dec, Bipolar 1 disorder, mixed F3 1.60 [facility] [address] [facility] [id number] [address] [place] [address] Dec, Low back pain M54.5 and Recu rrent urinary tract infection N39.0 [facility] [address] [facility] [id number] [address] [place] [address] Nov, Bipolar 1 disorder, mixed F3 1.60 [facility] [address] [facility] [id number] [address] [place] [address] Nov, Bipolar 1 disorder, mixed F3 1.60 [facility] [address] [facility] [id number] [address] [place] [address] Nov, Bipolar 1 disorder, mixed F3 1.60 [facility] [address] [facility] [id number] [address] [place] [address] Nov, Bipolar 1 disorder, mixed F3 1.60 [facility] [address] [facility] [id number] [address] [place] [address] Nov, [facility] [address] [facility] [id number] [address] [place] [address] Nov, Anesthesia of skin R20.0 ; F requent UTI N39.0 ; Tobacco abuse Z72.0 and Colon cancer screening Z12.11 [facility] [address] [facility] [id number] [address] [place] [address] Nov, Bipolar 1 disorder, mixed F3 1.60 [facility] [address] [facility] [id number] [address] [place] [address] October, Bipolar 1 disorder, mixed F3 1.60 [facility] [address] [facility] [id number] [address] [place] [address] October, Bipolar 1 disorder, mixed F3 1.60 [facility] [address] [place] [id number] [address] [place] [address] October, Bipolar 1 disorder, mixed F3 1.60 [facility] [address] [place] [id number] [address] [place] [address] October, Bipolar 1 disorder, mixed F3 1.60 [place] [address] [address] October, Bipolar 1 disorder, mixed F3 1.60 [place] [address] [place] [id number] [place] [address] October, Cervicalgia M54.2 and Bipola r 1 disorder, mixed F31.60 [place] [address] [place] [id number] [place] [address] October, Hypertension I10 ; Hyperlipi demia, unspecified hyperlipidemia type E78.5 and Family history of thyroid disease Z83.49 [place] [address] [place] [address] October, [place] [address] [place] [id number] [place] [address] October, Hypertension I10 ; Hyperlipi demia, unspecified hyperlipidemia type E78.5 and Family history of thyroid problem Z83.49 [place] [address] [place] [id number] [address] [place] [address] October, Bipolar 1 disorder, mixed F3 1.60 [place] [address] [place] [id number] [address] [place] [address] Sep, Bipolar 1 disorder, mixed F3 1.60 [place] [address] [place] [id number] [address] [place] [address] Sep, Bipolar 1 disorder, mixed F3 1.60 [place] [address] [place] [id number] [address] [place] [address] Sep, Bipolar 1 disorder, mixed F3 1.60 [facility] [address] [place] [id number] [address] [place] [address] Sep, History of colon polyps Z86. 010 and Hematochezia K92.1 [facility] [address] [facility] [id number] [address] [place] [address] Sep, Major depressive disorder, r ecurrent episode, moderate F33.1 [facility] [address] [facility] [id number] [address] [place] [id number] Sep, Bipolar 1 disorder, mixed F3 1.60 [facility] [address] [facility] [id number] [address] [place] [id number] Aug, Hot flashes due to menopause N95.1 [facility] [address] [id number] [address] [place] [id number] Aug, Bipolar 1 disorder, mixed F3 1.60 [place] [id number] [place] [id number] Aug, [facility] [address] [id number] [address] [place] [id number] Aug, Bipolar 1 disorder, mixed F3 1.60 [place] [address] [place] [id number] [address] [place] [id number] Aug, Bipolar 1 disorder, mixed F3 1.60 [place] [address] [place] [id number] [address] [place] [id number] Aug, Hot flashes due to menopause N95.1 ; Cervicalgia M54.2 and Ataxia R27.0 [facility] [address] [facility] [id number] [address] [place] [id number] Jul, Bipolar 1 disorder, mixed F3 1.60 [facility] [address] [place] [id number] [address] [place] [id number] Jul, Bipolar 1 disorder, mixed F3 1.60 [facility] [address] [place] [id number] [address] [place] [id number] Jul, Bipolar 1 disorder, mixed F3 1.60 [place] [address] Jul, Bipolar 1 disorder, mixed F3 1.60 [place] [address] Jul, Bipolar 1 disorder, mixed F3 1.60 [place] [address] Jul, Cervicalgia M54.2 ; Tremor R 25.1 ; Hearing abnormally acute, unspecified laterality H93.239 ; Alopecia L65.9 ; Encounter for immunization Z23 and Family history of thyroid disease Z83.49 [place] [address] Jul, Bipolar 1 disorder, mixed F3 1.60 [place] [address] Jun, [place] [address] Jun, Hearing disorder, unspecifie d laterality H93.299 [place] [address] Jun, Bipolar 1 disorder, mixed F3 1.60 [place] [address] [place] [address] Jun, Bipolar 1 disorder, mixed F3 1.60 [place] [address] [id number] Jun, Allergic rhinitis J30.9 [place] [address] Jun, Bipolar 1 disorder, mixed F3 1.60 [place] [address] [place] [address] Jun, Bipolar 1 disorder, mixed F3 1.60 [facility] [address] [id number] [address] [place] [id number] Jun, Allergic rhinitis J30.9 [facility] [address] [id number] [address] [place] [id number] Jun, Allergic rhinitis J30.9 [facility] [address] [id number] [address] [place] [id number] Jun, Bipolar 1 disorder, mixed F3 1.60 [facility] [address] [id number] [address] [place] [address] May, Bipolar 1 disorder, mixed F3 1.60 [facility] [address] [id number] [address] [address] May, Bipolar 1 disorder, mixed F3 1.60 [facility] [address] [id number] [address] [place] [address] May, [facility] [address] [id number] [address] [place] [id number] May, Bipolar 1 disorder, mixed F3 1.60 [facility] [address] [id number] [address] [place] [address] May, Bipolar 1 disorder, mixed F3 1.60 [facility] [address] [id number] [address] [place] [address] May, [facility] [address] [id number] [address] [place] [id number] May, [facility] [address] [id number] [address] [place] [address] May, [facility] [address] [id number] [address] [place] [id number] May, Abdominal pain, unspecified location R10.9 [facility] [address] [id number] [address] [place] [address] May, [facility] [address] [address] Apr, Hematuria R31.9 ; Ataxia R27 .0 and Hearing loss, unspecified laterality H91.90 [place] [address] [address] Apr, Bipolar 1 disorder, mixed F3 1.60 [facility] [address] [address] Apr, Acute effusion of both middl e ears H65.193 [place] [address] [address] Apr, Hematuria R31.9 and Pyelonep hritis N12 [place] [address] [address] Apr, [place] [address] [address] Mar, Bipolar 1 disorder, mixed F3 1.60 [place] [address] [address] Mar, [place] [address] [place] [id number] Mar, Bipolar 1 disorder, mixed F3 1.60 [place] [address] [address] Mar, Bipolar 1 disorder, mixed F3 1.60 [place] [address] [place] [id number] Mar, Encounter for immunization Z 23 and Gastritis without bleeding, unspecified chronicity, unspecified gastritis type K29.70 [place] [address] [address] Mar, Bipolar 1 disorder, mixed F3 1.60 and Grief F43.20 [place] [address] [address] Mar, Gastritis without bleeding, unspecified chronicity, unspecified gastritis type K29.70 [facility] [address] [place] [id number] Mar, Bipolar 1 disorder, mixed F3 1.60 [facility] [address] [place] [id number] [address] [place] [address] Mar, Gastritis without bleeding, unspecified chronicity, unspecified gastritis type K29.70 [facility] [address] [place] [id number] Mar, [place] [address] [place] [id number] Feb, Bipolar 1 disorder, mixed F3 1.60 [place] [address] [place] [address] Feb, Bipolar 1 disorder, mixed F3 1.60 and Grief F43.20 [place] [address] [address] Feb, Gastritis without bleeding, unspecified chronicity, unspecified gastritis type K29.70 [place] [address] [address] 14 Feb, 2016 Bipolar 1 disorder, mixed F3 1.60 [facility] [address] [place] [id number] [address] [place] [address] 09 Feb, 2016 Gastroesophageal reflux dise ase, esophagitis presence not specified K21.9 [facility] [address] [place] [id number] [address] [place] [address] Jan, Bipolar 1 disorder, mixed F3 1.60 [place] [address] [address] Jan, Bipolar 1 disorder, mixed F3 1.60 and Unsteady gait R26.81 [place] [address] [place] [id number] [address] [place] [address] Jan, Bipolar 1 disorder, mixed F3 1.60 [facility] [address] [place] [id number] [address] [place] [address] Jan, Bipolar 1 disorder, mixed F3 1.60 and 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 [facility] [address] [facility] [id number] [address] [place] [address] Jan, Bipolar 1 disorder, mixed F3 1.60 [place] [address] [place] [id number] [address] [place] [address] Jan, Bipolar 1 disorder, mixed F3 1.60 [place] [address] [facility] [id number] [address] [place] [address] Jan, Bipolar 1 disorder, mixed F3 1.60 ; Grief F43.20 and 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 [place] [address] [place] [id number] [address] [place] [address] Jan, Bipolar 1 disorder, mixed F3 1.60 [place] [address] [place] [id number] [address] [place] [address] Dec, [place] [address] [place] [id number] [address] [place] [address] Dec, Bipolar 1 disorder, mixed F3 1.60 ; Vitamin D deficiency, unspecified E55.9 ; H/O allergic rhinitis Z87.09 ; Other chronic pain G89.29 and Dorsalgia, unspecified M54.9 [place] [address] [place] [id number] [address] [place] [address] Dec, [place] [address] [facility] [id number] [address] [place] [address] Dec, Bipolar 1 disorder, mixed F3 1.60 [place] [address] [place] [id number] [address] [place] [address] Dec, Major depressive disorder, r ecurrent episode, moderate F33.1 [place] [address] [place] [id number] [address] [place] [address] Dec, Major depressive disorder, r ecurrent episode, moderate F33.1 [facility] [address] [facility] [id number] [address] [place] [address] Nov, [place] [address] [facility] [id number] [address] [place] [address] Nov, Bipolar 1 disorder, mixed F3 1.60 [place] [address] [facility] [id number] [address] [place] [address] Nov, Major depressive disorder, r ecurrent episode, moderate F33.1 [place] [address] [facility] [id number] [address] [place] [address] Nov, Cervicalgia M54.2 ; Arthralg ia of hip, unspecified laterality M25.559 ; Allergic rhinitis J30.9 and Hormone replacement therapy Z79.890 [facility] [address] [facility] [id number] [address] [place] [address] Nov, Other seasonal allergic rhin itis J30.2 [place] [address] [facility] [id number] [address] [place] [address] October, Major depressive disorder, r ecurrent episode, moderate F33.1 [place] [address] [facility] [id number] [address] [place] [address] October, Major depressive disorder, r ecurrent episode, moderate F33.1 and Arthralgia of hip, unspecified laterality M25.559 [place] [address] [facility] [id number] [address] [place] [address] October, Grief F43.20 ; Hypertension I10 ; Hyperlipidemia, unspecified hyperlipidemia type E78.5 ; Other chronic pain G89.29 and Allergic rhinitis, unspecified allergic rhinitis type J30.9 [place] [address] [facility] [id number] [address] [place] [address] October, Major depressive disorder, r ecurrent episode, moderate F33.1 [place] [address] [facility] [id number] [address] [place] [id number] Sep, Major depressive disorder, r ecurrent episode, moderate F33.1 [facility] [address] [id number] [address] [place] [id number] Sep, [facility] [address] [id number] [address] [place] [address] Sep, Major depressive disorder, r ecurrent episode, moderate F33.1 [facility] [address] [facility] [id number] [address] [place] [address] Sep, Grief F43.20 [facility] [address] [id number] [address] [place] [address] Aug, Major depressive disorder, r ecurrent episode, moderate F33.1 [place] [address] [facility] [id number] [address] [place] [address] Aug, Bipolar 1 disorder, mixed F3 1.60 [place] [address] [facility] [id number] [address] [place] [address] Aug, Allergic rhinitis J30.9 ; Ce rvicalgia M54.2 and Low back pain M54.5 [facility] [address] [facility] [id number] [address] [place] [address] Aug, Major depressive disorder, r ecurrent episode, moderate F33.1 [facility] [address] [facility] [id number] [address] [place] [address] Aug, Sinusitis J32.9 and Tobacco 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 [facility] [address] [facility] [id number] [address] [place] [address] Aug, [facility] [address] [facility] [id number] [address] [place] [address] Aug, Depressive disorder, not els ewhere classified F32.9 ; Hormone replacement therapy Z79.[address] scan, head R93.0 [facility] [address] [facility] [id number] [address] [place] [address] Aug, Major depressive disorder, r ecurrent episode, moderate F33.1 [facility] [address] [facility] [id number] [address] [place] [id number] 17 Jul, 2015 Major depressive disorder, r ecurrent episode, moderate F33.1 [facility] [address] [facility] [id number] [address] [place] [id number] 17 Jul, 2015 Abdominal pain R10.9 and Hyp ertension I10 [facility] [address] [facility] [id number] [address] [place] [id number] 08 Jul, 2015 [facility] [address] [facility] [id number] [address] [place] [id number] 05 Jul, 2015 Major depressive disorder, r ecurrent episode, moderate F33.1 [facility] [address] [facility] [id number] [address] [place] [id number] 04 Jul, 2015 [facility] [address] [facility] [id number] [address] [place] [address] Jul, [facility] [address] [facility] [id number] [address] [place] [id number] Jun, [facility] [address] [place] [id number] [address] [place] [address] Jun, Depressive disorder, not els ewhere classified F32.9 [facility] [address] [facility] [id number] [address] [place] [address] Jun, [facility] [address] [facility] [id number] [address] [place] [id number] Jun, [facility] [address] [place] [id number] [address] [place] [id number] Jun, Arthralgia of hip, unspecifi ed laterality M25.559 ; Bruising, spontaneous R23.3 and Night sweats R61 [facility] [address] [facility] [id number] [address] [place] [id number] 18 Jun, 2015 [facility] [address] [place] [id number] [address] [place] [id number] Jun, [facility] [address] [facility] [id number] [address] [place] [address] May, [facility] [address] [facility] [id number] [address] [place] [address] May, Myalgia M79.1 and Screening, lipid Z13.220 [facility] [address] [place] [id number] [address] [place] [address] Apr, Status post cervical spinal fusion Z98.1 ; Fibromyalgia M79.7 and Unsteady gait R26.81 [facility] [address] [id number] [address] [place] [address] Nov, [facility] [address] [place] [id number] [address] [place] [id number] Nov, [facility] [address] [place] [id number] [address] [place] [id number] October, [facility] [address] [place] [id number] [address] [place] [id number] October, [facility] [address] [place] [id number] [address] [place] [id number] October, [facility] [address] [place] [id number] [address] [place] [address] October, [facility] [address] [place] [id number] [address] [place] [address] October, [facility] [address] [facility] [id number] [address] [place] [address] October, Dysuria 788.1 ; Nausea 787.0 2 and Urinary tract infection 599.0 [facility] [address] [facility] [id number] [address] [place] [id number] 14 Sep, 2014 [facility] [address] [place] [id number] [address] [place] [address] Sep, [facility] [address] [place] [id number] [address] [place] [address] [place] [address] 25 Aug, 2014 [facility] [address] [id number] [address] [place] [address], [place] [address] 25 Aug, 2014 [facility] [address] [id number] [address] [place] [address], [place] [address] 24 Aug, 2014 [facility] [address] [id number] [address] [place] [address], [place] [id number] 24 Aug, 2014 [facility] [address] [id number] [address] [place] [address], [place] [address] 23 Aug, 2014 [facility] [address] [id number] [address] [place] [address], [place] [address] 19 Aug, 2014 [facility] [address] [id number] [address] [place] [address], [place] [address] 19 Aug, 2014 [facility] [address] [id number] [address] [place] [address], [place] [id number] 19 Aug, 2014 [facility] [address] [id number] [address] [place] [address], [place] [address] 19 Aug, 2014 [facility] [address] [id number] [address] [place] [address], [place] [id number] 18 Aug, 2014 [facility] [address] [id number] [address] [place] [address], [place] [id number] 18 Aug, 2014 [facility] [address] [id number] [address] [place] [address], [place] [address] 13 Aug, 2014 [facility] [address] [id number] [address] [place] [address], [place] [address] 13 Aug, 2014 [facility] [address] [id number] [address] [place] [address], [place] [address] 11 Aug, 2014 [facility] [address] [id number] [address] [place] [address], [place] [id number] 11 Aug, 2014 [facility] [address] [id number] [address] [place] [address], [place] [id number] 06 Aug, 2014 [facility] [address] [id number] [address] [place] [address], [place] [id number] 06 Aug, 2014 [facility] [address] [id number] [address] [place] [address], [place] [address] Aug, 2014 [facility] [address] [id number] [address] [place] [address], [place] [address] Aug, 2014 [facility] [address] [id number] [address] [place] [address], [place] [id number] Aug, 2014 [facility] [address] [id number] [address] [place] [address], [place] [id number] Aug, [facility] [address] [id number] [address] [place] [address], [place] [id number] Aug, [facility] [address] [id number] [address] [place] [address], [place] [id number] Jul, [facility] [address] [id number] [address] [place] [address], [place] [address] Jul, 2014 [facility] [address] [id number] [address] [place] [address], [place] [address] Jul, [facility] [address] [id number] [address] [place] [address], [place] [id number] Jul, [facility] [address] [id number] [address] [place] [address], [place] [address] Jul, [facility] [address] [id number] [address] [place] [address], [place] [address] Jul, 2014 [facility] [address] [id number] [address] [place] [address], [place] [address] Jul, [facility] [address] [id number] [address] [place] [address], [place] [address] Jul, 2014 [facility] [address] [id number] [address] [place] [address], [place] [address] Jul, 2014 [facility] [address] [id number] [address] [place] [address], [place] [address] Jul, 2014 [facility] [address] [id number] [address] [place] [address], [place] [address] Jul, 2014 [facility] [address] [id number] [address] [place] [address], [place] [address] Jul, 2014 [facility] [address] [id number] [address] [place] [address], [place] [address] Jul, 2014 [facility] [address] [id number] [address] [place] [address], [place] [address] Jul, [facility] [address] [id number] [address] [place] [address], [place] [address] Jun, [facility] [address] [id number] [address] [place] [address], [place] [address] Jun, [facility] [address] [id number] [address] [place] [address], [place] [address] Jun, [facility] [address] [id number] [address] [place] [address], [place] [address] Jun, [facility] [address] [id number] [address] [place] [address], [place] [address] Jun, [facility] [address] [id number] [address] [place] [address], [place] [address] Jun, [facility] [address] [id number] [address] [place] [address], [place] [address] May, [facility] [address] [id number] [address] [place] [address], [place] [address] May, [facility] [address] [id number] [address] [place] [address], [place] [address] May, [facility] [address] [id number] [address] [place] [address], [place] [address] May, [facility] [address] [id number] [address] [place] [address], [place] [address] May, [facility] [address] [id number] [address] [place] [address], [place] [address] May, [facility] [address] [id number] [address] [place] [address], [place] [address] Apr, [facility] [address] [id number] [address] [place] [address], [place] [address] Apr, [facility] [address] [id number] [address] [place] [address], [place] [address] Apr, [facility] [address] [id number] [address] [place] [address], [place] [address] Apr, [facility] [address] [id number] [address] [place] [address], [place] [address] Apr, [facility] [address] [id number] [address] [place] [address], [place] [address] Apr, [facility] [address] [id number] [address] [place] [id number] Mar, [facility] [address] [id number] [address] [place] [address], [place] [address] Mar, [facility] [address] [id number] [address] [place] [id number] Mar, [facility] [address] [id number] [address] [place] [id number] Mar, [facility] [address] [id number] [address] [place] [id number] Mar, [facility] [address] [id number] [address] [place] [id number] Mar, [facility] [address] [id number] [address] [place] [id number] Mar, [facility] [address] [id number] [address] [place] [id number] Mar, [facility] [address] [id number] [address] [place] [id number] Mar, [facility] [address] [id number] [address] [place] [address], [place] [address] Mar, [facility] [address] [id number] [address] [place] [address], [place] [address] Mar, [facility] [address] [id number] [address] [place] [address], [place] [address] Mar, [facility] [address] [id number] [address] [place] [address], [place] [id number] 30 Feb, 2014 [facility] [address] [id number] [address] [place] [address], [place] [address] 29 Feb, 2014 [facility] [address] [id number] [address] [place] [address], [place] [id number] 29 Feb, 2014 [facility] [address] [id number] [address] [place] [address], [place] [address] Feb, [facility] [address] [id number] [address] [place] [address], [place] [address] Feb, [facility] [address] [id number] [address] [place] [address], [place] [address] Feb, [facility] [address] [id number] [address] [place] [address], [place] [address] Feb, [facility] [address] [id number] [address] [place] [address], [place] [address] Jan, [facility] [address] [id number] [address] [place] [address], [place] [address] Jan, [facility] [address] [id number] [address] [place] [address], [place] [address] Jan, [facility] [address] [id number] [address] [place] [address], [place] [address] Dec, [facility] [address] [id number] [address] [place] [address], [place] [address] Dec, [facility] [address] [id number] [facility] [place] [address] Dec, [facility] [address] [id number] [address] [place] [address], [place] [address] Dec, [facility] [address] [id number] [facility] [place] [address] Sep, [facility] [address] [id number] [address] [place] [address], [place] [address] Sep, [facility] [address] [id number] [address] [place] [address], [place] [address] Sep, [facility] [address] [id number] [address] [place] [address], [place] [address] Sep, [facility] [address] [id number] [address] [place] [address], [place] [address] Sep, [facility] [address] [id number] [address] [place] [address], [place] [address] Sep, [facility] [address] [id number] [address] [place] [address], [place] [id number] Sep, [facility] [address] [id number] [address] [place] [address], [place] [address] Sep, [facility] [address] [id number] [address] [place] [address], [place] [address] Aug, [facility] [address] [id number] [address] [place] [address], [place] [address] Aug, [facility] [address] [id number] [address] [place] [address], [place] [address] May, [facility] [address] [id number] [address] [place] [address], [place] [address] May, [facility] [address] [id number] [address] [place] [address], [place] [address] Apr, [facility] [address] [id number] [address] [place] [address], [place] [address] Apr, [facility] [address] [id number] [address] [place] [address], [place] [address] Apr, [facility] [address] [id number] [address] [place] [address], [place] [address] Apr, [facility] [address] [id number] [address] [place] [address], [place] [address] Apr, [facility] [address] [id number] [address] [place] [address], [place] [id number] Apr, [facility] [address] [id number] [address] [place] [address], [place] [address] May, [facility] [address] [id number] [address] [place] [address], [place] [id number] 18 May, 2012 [facility] [address] [id number] [address] [place] [address], [place] [id number] 15 May, 2012 [facility] [address] [id number] [address] [place] [address], [place] [id number] 15 May, 2012 [facility] [address] [id number] [address] [place] [address], [place] [address] May, [facility] [address] [id number] [address] [place] [address], [place] [address] May, [facility] [address] [id number] [address] [place] [address], [place] [address] Apr, [facility] [address] [id number] [address] [place] [address], [place] [address] Apr, [facility] [address] [id number] [address] [place] [address], [place] [address] Apr, [facility] [address] [id number] [address] [place] [address], [place] [address] Apr, [facility] [address] [id number] [address] [place] [address], [place] [address] Apr, [facility] [address] [id number] [address] [place] [address], [place] [id number] 08 Apr, 2012 [facility] [address] [id number] [address] [place] [address], [place] [id number] 07 Apr, 2012 [facility] [address] [id number] [address] [place] [address], [place] [address] Apr, [facility] [address] [id number] [address] [place] [address], [place] [id number] Apr, [facility] [address] [id number] [address] [place] [address], [place] [address] Apr, [facility] [address] [id number] [address] [place] [address], [place] [address] Mar, [facility] [address] [id number] [address] [place] [address], [place] [address] Mar, [facility] [address] [id number] [address] [place] [address], [place] [address] Mar, [facility] [address] [id number] [address] [place] [address], [place] [address] Mar, [facility] [address] [id number] [address] [place] [address], [place] [address] Mar, [facility] [address] [id number] [address] [place] [address], [place] [address] Mar, [facility] [address] [id number] [address] [place] [address], [place] [address] Mar, [facility] [address] [id number] [address] [place] [id number] Mar, [facility] [address] [id number] [address] [place] [address], [place] [id number] Mar, [facility] [address] [id number] [address] [place] [address], [place] [id number] 25 Feb, 2012 [facility] [address] [id number] [address] [place] [id number] 16 Feb, 2012 [facility] [address] [id number] [address] [place] [address], [place] [address] Feb, [facility] [address] [id number] [address] [place] [address], [place] [address] Jan, [facility] [address] [id number] [address] [place] [address], [place] [address] Jan, [facility] [address] [id number] [address] [place] [address], [place] [address] Jan, [facility] [address] [id number] [address] [place] [address], [place] [address] Jan, [facility] [address] [id number] [address] [place] [address], [place] [address] Jan, [facility] [address] [id number] [address] [place] [address], [place] [address] Jan, [facility] [address] [id number] [address] [place] [address], [place] [id number] Jan, [facility] [address] [id number] [address] [place] [address], [place] [address] Jan, [facility] [address] [id number] [address] [place] [address], [place] [address] Jan, [facility] [address] [id number] [address] [place] [address], [place] [id number] Jan, [facility] [address] [id number] [address] [place] [address], [place] [address] Dec, [facility] [address] [id number] [address] [place] [address], [place] [address] Dec, [facility] [address] [id number] [address] [place] [address], [place] [address] Dec, [facility] [address] [id number] [address] [place] [address], [place] [id number] 17 Dec, 2011 [facility] [address] [id number] [address] [place] [address], [place] [address] Nov, [facility] [address] [id number] [address] [place] [address], [place] [address] Nov, [facility] [address] [id number] [address] [place] [address], [place] [address] Nov, [facility] [address] [id number] [address] [place] [address], [place] [address] October, [facility] [address] [id number] [address] [place] [address], [place] [id number] October, [facility] [address] [id number] [address] [place] [address], [place] [address] October, [facility] [address] [id number] [address] [place] [address], [place] [address] October, [facility] [address] [id number] [address] [place] [address], [place] [id number] October, [facility] [address] [id number] [address] [place] [address], [place] [address] October, [facility] [address] [id number] [address] [place] [address], [place] [id number] Aug, [facility] [address] [id number] [address] [place] [address], [place] [address] Mar, [facility] [address] [id number] [address] [place] [address], [place] [address] Nov, [facility] [address] [id number] [address] [place] [address], [place] [address] May, [facility] [address] [id number] [address] [place] [address], [place] [address] May, [facility] [address] [id number] [address] [place] [address], [place] [id number] Apr, [facility] [address] [id number] [address] [place] [address], [place] [address] Mar, [facility] [address] [id number] [address] [place] [address] Mar, IMMUNIZATIONS No Known Immunizations SOCIAL HISTORY Never Assessed REASON FOR VISIT fibromyalgia, -Joseph ACEVEDO, PT reports she started physcial therapy this December to help her back pain. -Joseph ACEVEDO PLAN OF CARE Activity Details Follow Up 4 Weeks Reason:back pain VITAL SIGNS Height 64 in 2018-02-11 Weight 167.9 lbs 2018-02-11 Temperature 98.4 degrees Fahrenheit 2018-02-11 Heart Rate 93 bpm 2018-02-11 Respiratory Rate 20 2018-02-11 Oximetry 96 % 2018-02-11 BMI 28.82 kg/m2 2018-02-11 Blood pressure systolic 139 mmHg 2018-02-11 Blood pressure diastolic 80 mmHg 2018-02-11 MEDICATIONS Medication Instructions Dosage Frequency Start Date End Date Duration S tatus Lidocaine-Prilocaine 2.5-2.5 % Active Nitrofurantoin Monohyd Macro 100 mg Orally Once a day 1 capsule with food 24h Active Baclofen 20 mg Orally 2 times a day 1 tablet with food or milk 12h October, 13 Feb, 2018 30 days Active Flunisolide 25 MCG/ACT (0.025%) Nasally Twice a day 2 sprays in each nostril 12h Sep, 30 day(s) Active Probiotic Acidophilus Ac tive Beclomethasone Dipropionate 80 MCG/ACT Nasally Once a day 2 puffs in each nostril 24h Sep, 30 day(s) Active Montelukast Sodium 10 mg Orally Once a day 1 tablet in the evening 24h October, 90 days Active Estradiol 2 MG Orally Once a day 1 tablet 24h Active Vitamin D3 2000 UNIT Orally Once a day as directed 24h Dec, Active Fetzima 120 mg Orally Once a day TAKE 1 CAPSULE BY MOUTH DAILY 24h 30 days Active Magnesium 500 MG Orally Once a day 1 tablet with a meal 24h Dec, Active Fexofenadine HCl 60 MG Orally Twice a day 1 tablet 12h Nov, 90 days Active Pantoprazole Sodium 20 MG TAKE 1 TABLET BY MOUTH ONCE DAILY 90 Active Ibuprofen 600 MG Orally 4 times a day 1 tablet with food or milk as needed 6h Jan, May, 30 days Active Neurontin 300 MG Orally Once a day 1 capsule 24h Active Vagifem 10 MCG Vaginal Two times a Week 1 tablet 84 Active Melatonin 5 mg Orally Once a day 2 tablets 24h 27 May, 2017 Not-Taking Oxybutynin Chloride ER 10 MG Orally Once a day 1 tablet 24h October, 30 day(s) Active Orally Once a day 1 capsule 24h Act mitchell Depakote ER 500 mg Orally at bedtime 2 tabs 30 days Active Voltaren 1 % Transdermal 4 times a day on neck Active Mucinex 600 MG Orally every 12 hrs 1 tablet as needed 12h Active Q15-Nwnyjo 1 MG Active Benadryl 2 tablets Active RESULTS No Results PROCEDURES Procedure Date Ordered Result Body Site [facility] VISIT ESTABLISHED PATIENT Feb 11, 2018 INSTRUCTIONS MEDICATIONS ADMINISTERED No Known Medications [...]
--- OUTSIDE RECORDS SUMMARY | 2019-06-19 05:27 | XMS REPORT ---
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 Name Role Phone MIRIAN SQUIRES Unavailable PROBLEMS Type Condition ICD9-CM Code QLS32-PA Code Onset Dates Condition S tatus SNOMED Code Problem Hormone replacement therapy Z79.890 Ac tive 569255127 Problem Abnormal CT scan, head R93.0 Active 371182145 Problem Sensorineural hearing loss (SNHL) of both ears H90 .3 Active 747774327 Problem History of colon polyps Z86.010 Active 453471730 Problem Bruising, spontaneous R23.3 Active 330626196 Problem Generalized anxiety disorder F41.1 A ctive 66160266 Problem Arthralgia of hip, unspecified laterality M25.559 Active 91286556 Problem Hematuria, unspecified type R31.9 Ac tive 36230311 Problem Imbalance R26.89 Active 746395044 Problem Hammer toe of right foot M20.41 Activ e 322939990 Problem Plantar wart of right foot B07.0 Act mitchell [id number] Problem Sciatica of left side M54.32 Active 90119768 Problem Hyperlipidemia, unspecified hyperlipidemia type E7 8.5 Active 34946015 Problem Hypertension I10 Active 6566766 3 Problem Night sweats R61 Active 8106347 0 Problem Fibromyalgia M79.7 Active 2395997 7 Problem Major depressive disorder, recurrent episode, moderate F33.1 Active 235900753 Problem Acute left-sided low back pain with left-sided sciatica M54.42 Active 306621538 Problem Bladder spasm N32.89 Active 357636 006 Problem Gastritis without bleeding, unspecified chronicity, unspecified gastritis type K29.70 Active 515175751 Problem Bipolar 1 disorder, mixed F31.60 Acti ve 74203481 Problem Grief F43.20 Active 19332317 Problem Other chronic pain G89.29 Active 8 4092861 Problem Allergic rhinitis J30.9 Active 61 355560 Problem Hot flashes due to menopause N95.1 A ctive 984555293 Problem Ataxia R27.0 Active 25400214 Problem Hearing loss, unspecified laterality H91.90 Active 68708067 ALLERGIES No Information ENCOUNTERS Encounter Location Date Diagnosis [facility] [address] [facility] [id number] [address] [place] [id number] Apr, [facility] [address] [facility] [id number] [address] [place] [id number] Mar, [facility] [address] [facility] [id number] [address] [place] [id number] Mar, [facility] [address] [facility] [id number] [address] [place] [id number] Mar, [facility] [address] [facility] [id number] [address] [place] [id number] Mar, [facility] [address] [facility] [id number] [address] [place] [id number] Feb, [facility] [address] [facility] [id number] [address] [place] [address] Feb, Bipolar 1 disorder, mixed F3 1.60 and Generalized anxiety disorder F41.1 [facility] [address] [facility] [id number] [address] [place] [id number] 13 Feb, 2018 Bipolar 1 disorder, mixed F3 1.60 [facility] [address] [facility] [id number] [address] [place] [id number] 11 Feb, 2018 Allergic rhinitis J30.9 [facility] [address] [facility] [id number] [address] [place] [id number] 05 Feb, 2018 [facility] [address] [facility] [id number] [address] [place] [address] Jan, Bipolar 1 disorder, mixed F3 1.60 [facility] [address] [facility] [id number] [address] [place] [address] Jan, Low back pain M54.5 ; Hyperl ipidemia, unspecified hyperlipidemia type E78.5 and Bipolar 1 disorder, mixed F31.60 [facility] [address] [facility] [id number] [address] [place] [address] Jan, Bipolar 1 disorder, mixed F3 1.60 [facility] [address] [facility] [id number] [address] [place] [address] Jan, Bipolar 1 disorder, mixed F3 1.60 [facility] [address] [facility] [id number] [address] [place] [address] Jan, Bipolar 1 disorder, mixed F3 1.60 [facility] [address] [facility] [id number] [address] [place] [address] Jan, Bipolar 1 disorder, mixed F3 1.60 [facility] [address] [facility] [id number] [address] [place] [address] Dec, Bipolar 1 disorder, mixed F3 1.60 ; Generalized anxiety disorder F41.1 and Other alf (current) drug therapy Z79.899 [facility] [address] [facility] [id number] [address] [place] [address] Dec, Other alf (current) dr ug therapy Z79.899 [facility] [address] [facility] [id number] [address] [place] [address] Dec, Bipolar 1 disorder, mixed F3 1.60 [facility] [address] [facility] [id number] [address] [place] [address] Dec, Bipolar 1 disorder, mixed F3 1.60 [facility] [address] [facility] [id number] [address] [place] [id number] Nov, Bipolar 1 disorder, mixed F3 1.60 [facility] [address] [facility] [id number] [address] [place] [address] Nov, Bipolar 1 disorder, mixed F3 1.60 [facility] [address] [facility] [id number] [address] [place] [address] Nov, Bipolar 1 disorder, mixed F3 1.60 [facility] [address] [place] [id number] [address] [place] [address] Nov, Allergic rhinitis J30.9 [facility] [address] [address] Nov, Allergic rhinitis J30.9 [facility] [address] [place] [id number] [place] [address] Nov, [facility] [address] [address] Nov, Bipolar 1 disorder, mixed F3 1.60 [place] [address] [address] Nov, Fibromyalgia M79.7 and Aller gic rhinitis J30.9 [place] [address] [address] October, Bipolar 1 disorder, mixed F3 1.60 [facility] [address] [address] October, Acute nasopharyngitis J00 [facility] [address] [address] October, Bitten or stung by nonvenomo us insect and other nonvenomous arthropods, initial encounter W57.XXXA and Insect bite (nonvenomous) of abdominal wall, initial encounter S30.861A [place] [address] [place] [id number] [address] [place] [address] October, Insect bite (nonvenomous) of abdominal wall, initial encounter S30.861A ; Bitten or stung by nonvenomous insect and other nonvenomous arthropods, initial encounter W57.XXXA ; Allergic rhinitis J30.9 and Low back pain M54.5 [facility] [address] [place] [id number] [address] [place] [address] October, Bipolar 1 disorder, mixed F3 1.60 [place] [address] [place] [id number] [address] [place] [address] October, [facility] [address] [id number] [address] [place] [address] October, [facility] [address] [id number] [address] [place] [id number] October, Bipolar 1 disorder, mixed F3 1.60 [facility] [address] [id number] [address] [place] [address] Sep, Bipolar 1 disorder, mixed F3 1.60 [facility] [address] [id number] [address] [place] [address] Sep, Other chronic pain G89.29 [facility] [address] [id number] [address] [place] [address] Sep, [facility] [address] [facility] [id number] [address] [place] [address] Sep, Bipolar 1 disorder, mixed F3 1.60 [facility] [address] [id number] [address] [place] [address] Sep, Allergic rhinitis J30.9 and Sciatica of left side M54.32 [facility] [address] [facility] [id number] [address] [place] [address] Sep, Bipolar 1 disorder, mixed F3 1.60 [facility] [address] [facility] [id number] [address] [place] [address] Sep, Bipolar 1 disorder, mixed F3 1.60 and Generalized anxiety disorder F41.1 [facility] [address] [id number] [address] [place] [address] Aug, [facility] [address] [facility] [id number] [address] [place] [address] Aug, Bipolar 1 disorder, mixed F3 1.60 [facility] [address] [facility] [id number] [address] [place] [address] Aug, Bipolar 1 disorder, mixed F3 1.60 [facility] [address] [facility] [id number] [address] [place] [address] Aug, [facility] [address] [facility] [id number] [address] [place] [address] Aug, Generalized anxiety disorder F41.1 [facility] [address] [facility] [id number] [address] [place] [address] Aug, Bipolar 1 disorder, mixed F3 1.60 [facility] [address] [facility] [id number] [address] [place] [id number] Aug, Plantar wart of right foot B 07.0 [facility] [address] [facility] [id number] [address] [place] [address] Aug, Bipolar 1 disorder, mixed F3 1.60 [facility] [address] [place] [id number] [address] [place] [id number] Jul, Bipolar 1 disorder, mixed F3 1.60 [facility] [address] [facility] [id number] [address] [place] [address] Jul, [facility] [address] [facility] [id number] [address] [place] [address] Jul, Bipolar 1 disorder, mixed F3 1.60 [facility] [address] [facility] [id number] [address] [place] [address] Jul, Generalized anxiety disorder F41.1 [facility] [address] [facility] [id number] [address] [place] [id number] Jul, Bipolar 1 disorder, mixed F3 1.60 [facility] [address] [facility] [id number] [address] [place] [address] Jul, Acute left-sided low back pa in with left-sided sciatica M54.42 [facility] [address] [facility] [id number] [address] [place] [id number] 05 Jul, 2017 Coccydynia M53.3 [facility] [address] [address] Jun, Bipolar 1 disorder, mixed F3 1.60 [facility] [address] [address] Jun, Acute nasopharyngitis J00 [facility] [address] [address] Jun, Bipolar 1 disorder, mixed F3 1.60 [facility] [address] [address] Jun, Fibromyalgia M79.7 [place] [address] [address] Jun, Bipolar 1 disorder, mixed F3 1.60 [place] [address] [address] Jun, Fibromyalgia M79.7 and Bipol ar 1 disorder, mixed F31.60 [place] [address] [address] May, Bipolar 1 disorder, mixed F3 1.60 ; Generalized anxiety disorder F41.1 and 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 [place] [address] [address] May, Bipolar 1 disorder, mixed F3 1.60 [facility] [address] [address] 14 May, 2017 Cough R05 and Body aches R52 [facility] [address] [address] 10 May, 2017 Bladder spasm N32.89 and Acu te cystitis without hematuria N30.00 [facility] [address] [address] 07 May, 2017 Bipolar 1 disorder, mixed F3 1.60 [place] [address] [address] Apr, [facility] [address] [place] [address] Apr, Major depressive disorder, r ecurrent episode, moderate F33.1 and Encounter for immunization Z23 [facility] [address] Apr, Bipolar 1 disorder, mixed F3 1.60 [facility] [address] Apr, Bipolar 1 disorder, mixed F3 1.60 [place] [address] Apr, Bipolar 1 disorder, mixed F3 1.60 [place] [address] Apr, Yeast vaginitis B37.3 [place] [address] [address] Apr, Bipolar 1 disorder, mixed F3 1.60 [facility] [address] [address] Apr, Cellulitis L03.[address] for immunization Z23 [place] [id number] [address] Apr, Bipolar 1 disorder, mixed F3 1.60 [facility] [address] [place] [id number] [address] [place] [address] Mar, Bipolar 1 disorder, mixed F3 1.60 [place] [address] [address] Mar, Bipolar 1 disorder, mixed F3 1.60 [facility] [address] [place] [address] Mar, Imbalance R26.89 and Encount er for immunization Z23 [facility] [address] [place] [address] Mar, Generalized anxiety disorder F41.1 [facility] [address] [facility] [id number] [address] [place] [address] Mar, Bipolar 1 disorder, mixed F3 1.60 [facility] [address] [facility] [id number] [address] [place] [address] Mar, Generalized anxiety disorder F41.1 [place] [address] [place] [id number] [address] [place] [address] Mar, Bipolar 1 disorder, mixed F3 1.60 [place] [address] [place] [id number] [address] [place] [address] Mar, Bipolar 1 disorder, mixed F3 1.60 [place] [address] [place] [id number] [address] [place] [address] Feb, Bipolar 1 disorder, mixed F3 1.60 [place] [address] [place] [id number] [address] [place] [address] Feb, Bipolar 1 disorder, mixed F3 1.60 and Generalized anxiety disorder F41.1 [place] [address] [facility] [id number] [address] [place] [address] Feb, Gastritis without bleeding, unspecified chronicity, unspecified gastritis type K29.70 ; Hammer toe of right foot M20.41 and Other viral warts B07.8 [place] [address] [place] [id number] [address] [place] [address] Feb, Bipolar 1 disorder, mixed F3 1.60 [place] [address] [facility] [id number] [address] [place] [address] Feb, Bipolar 1 disorder, mixed F3 1.60 [place] [address] [place] [id number] [address] [place] [address] 05 Feb, 2017 Bipolar 1 disorder, mixed F3 1.60 [place] [address] [place] [id number] [address] [place] [address] Jan, Encounter for screening mamm ogram for breast cancer Z12.31 ; Other viral warts B07.8 and Allergic rhinitis J30.9 [facility] [address] [facility] [id number] [address] [place] [address] Jan, Bipolar 1 disorder, mixed F3 1.60 [facility] [address] [facility] [id number] [address] [place] [address] Jan, Bipolar 1 disorder, mixed F3 1.60 [facility] [address] [facility] [id number] [address] [place] [address] Jan, [facility] [address] [facility] [id number] [address] [place] [address] Jan, Bipolar 1 disorder, mixed F3 1.60 [facility] [address] [facility] [id number] [address] [place] [address] Jan, Bipolar 1 disorder, mixed F3 1.60 [place] [address] [place] [id number] [address] [place] [address] Jan, Allergic rhinitis J30.9 ; He maturia R31.9 and Colon cancer screening Z12.11 [facility] [address] [facility] [id number] [address] [place] [address] Dec, Bipolar 1 disorder, mixed F3 1.60 [place] [address] [facility] [id number] [address] [place] [address] Dec, Bipolar 1 disorder, mixed F3 1.60 ; Generalized anxiety disorder F41.1 and Other alf (current) drug therapy Z79.899 [facility] [address] [facility] [id number] [address] [place] [address] Dec, Bipolar 1 disorder, mixed F3 1.60 [facility] [address] [facility] [id number] [address] [place] [address] Dec, Bipolar 1 disorder, mixed F3 1.60 [facility] [address] [facility] [id number] [address] [place] [address] Dec, Bipolar 1 disorder, mixed F3 1.60 [place] [address] [facility] [id number] [address] [place] [address] Dec, Low back pain M54.5 and Recu rrent urinary tract infection N39.0 [facility] [address] [facility] [id number] [address] [place] [address] Nov, Bipolar 1 disorder, mixed F3 1.60 [facility] [address] [place] [id number] [address] [place] [address] Nov, Bipolar 1 disorder, mixed F3 1.60 [place] [address] [facility] [id number] [address] [place] [address] Nov, Bipolar 1 disorder, mixed F3 1.60 [place] [address] [place] [id number] [address] [place] [address] Nov, Bipolar 1 disorder, mixed F3 1.60 [place] [address] [place] [id number] [address] [place] [address] Nov, [place] [address] [place] [id number] [address] [place] [address] Nov, Anesthesia of skin R20.0 ; F requent UTI N39.0 ; Tobacco abuse Z72.0 and Colon cancer screening Z12.11 [place] [address] [place] [id number] [address] [place] [address] Nov, Bipolar 1 disorder, mixed F3 1.60 [place] [address] [facility] [id number] [address] [place] [address] October, Bipolar 1 disorder, mixed F3 1.60 [place] [address] [facility] [id number] [address] [place] [address] October, Bipolar 1 disorder, mixed F3 1.60 [place] [address] [place] [id number] [address] [place] [address] October, Bipolar 1 disorder, mixed F3 1.60 [place] [address] [place] [id number] [address] [place] [address] October, Bipolar 1 disorder, mixed F3 1.60 [facility] [address] [address] October, Bipolar 1 disorder, mixed F3 1.60 [facility] [address] [place] [id number] [address] [place] [address] October, Cervicalgia M54.2 and Bipola r 1 disorder, mixed F31.60 [place] [address] [address] October, Hypertension I10 ; Hyperlipi demia, unspecified hyperlipidemia type E78.5 and Family history of thyroid disease Z83.49 [place] [address] [address] October, [place] [address] [address] October, Hypertension I10 ; Hyperlipi demia, unspecified hyperlipidemia type E78.5 and Family history of thyroid problem Z83.49 [place] [address] [address] October, Bipolar 1 disorder, mixed F3 1.60 [place] [address] [address] Sep, Bipolar 1 disorder, mixed F3 1.60 [place] [address] [place] [id number] [address] [place] [address] Sep, Bipolar 1 disorder, mixed F3 1.60 [place] [address] [place] [id number] [address] [place] [address] Sep, Bipolar 1 disorder, mixed F3 1.60 [place] [address] [address] Sep, History of colon polyps Z86. 010 and Hematochezia K92.1 [place] [address] [place] [id number] [address] [place] [address] Sep, Major depressive disorder, r ecurrent episode, moderate F33.1 [facility] [address] [facility] [id number] [address] [place] [address] Sep, Bipolar 1 disorder, mixed F3 1.60 [facility] [address] [facility] [id number] [address] [place] [address] Aug, Hot flashes due to menopause N95.1 [facility] [address] [facility] [id number] [address] [place] [address] Aug, Bipolar 1 disorder, mixed F3 1.60 [facility] [address] [facility] [id number] [address] [place] [address] Aug, [facility] [address] [facility] [id number] [address] [place] [address] Aug, Bipolar 1 disorder, mixed F3 1.60 [facility] [address] [place] [id number] [address] [place] [address] Aug, Bipolar 1 disorder, mixed F3 1.60 [facility] [address] [place] [id number] [address] [place] [address] Aug, Hot flashes due to menopause N95.1 ; Cervicalgia M54.2 and Ataxia R27.0 [facility] [address] [facility] [id number] [address] [place] [id number] Jul, Bipolar 1 disorder, mixed F3 1.60 [facility] [address] [facility] [id number] [address] [place] [id number] Jul, Bipolar 1 disorder, mixed F3 1.60 [facility] [address] [facility] [id number] [address] [place] [id number] Jul, Bipolar 1 disorder, mixed F3 1.60 [facility] [address] [facility] [id number] [address] [place] [id number] Jul, Bipolar 1 disorder, mixed F3 1.60 [facility] [address] [facility] [id number] [address] [place] [id number] 10 Jul, 2016 Bipolar 1 disorder, mixed F3 1.60 [place] [address] 08 Jul, 2016 Cervicalgia M54.2 ; Tremor R 25.1 ; Hearing abnormally acute, unspecified laterality H93.239 ; Alopecia L65.9 ; Encounter for immunization Z23 and Family history of thyroid disease Z83.49 [place] [address] Jul, Bipolar 1 disorder, mixed F3 1.60 [place] [address] Jun, [place] [address] Jun, Hearing disorder, unspecifie d laterality H93.299 [place] [address] Jun, Bipolar 1 disorder, mixed F3 1.60 [place] [address] [id number] Jun, Bipolar 1 disorder, mixed F3 1.60 [place] [address] [place] [id number] Jun, Allergic rhinitis J30.9 [place] [address] [place] [id number] Jun, Bipolar 1 disorder, mixed F3 1.60 [place] [address] [id number] Jun, Bipolar 1 disorder, mixed F3 1.60 [place] [address] [id number] Jun, Allergic rhinitis J30.9 [place] [address] [id number] Jun, Allergic rhinitis J30.9 [place] [address] [place] [id number] [address] [place] [id number] Jun, Bipolar 1 disorder, mixed F3 1.60 [facility] [address] [id number] [address] [place] [id number] May, Bipolar 1 disorder, mixed F3 1.60 [facility] [address] [id number] [address] [place] [id number] May, Bipolar 1 disorder, mixed F3 1.60 [facility] [address] [id number] [address] [place] [phone] May, [facility] [address] [id number] [address] [place] [id number] May, Bipolar 1 disorder, mixed F3 1.60 [facility] [address] [facility] [id number] [address] [place] [id number] May, Bipolar 1 disorder, mixed F3 1.60 [facility] [address] [id number] [address] [place] [phone] May, [facility] [address] [id number] [address] [place] [phone] May, [facility] [address] [facility] [id number] [address] [place] [id number] May, [facility] [address] [facility] [id number] [address] [place] [id number] May, Abdominal pain, unspecified location R10.9 [facility] [address] [id number] [address] [place] [id number] May, [facility] [address] [facility] [id number] [address] [place] [phone] Apr, Hematuria R31.9 ; Ataxia R27 .0 and Hearing loss, unspecified laterality H91.90 [facility] [address] [facility] [id number] [address] [place] [id number] Apr, Bipolar 1 disorder, mixed F3 1.60 [facility] [id number] [place] [id number] 11 Apr, 2016 Acute effusion of both middl e ears H65.193 [facility] [address] [place] [id number] [address] [place] [id number] 10 Apr, 2016 Hematuria R31.9 and Pyelonep hritis N12 [place] [address] [address] Apr, [facility] [address] [address] Mar, Bipolar 1 disorder, mixed F3 1.60 [place] [address] [address] Mar, [place] [address] [address] Mar, Bipolar 1 disorder, mixed F3 1.60 [place] [address] [address] Mar, Bipolar 1 disorder, mixed F3 1.60 [place] [address] [address] Mar, Encounter for immunization Z 23 and Gastritis without bleeding, unspecified chronicity, unspecified gastritis type K29.70 [place] [address] [address] Mar, Bipolar 1 disorder, mixed F3 1.60 and Grief F43.20 [place] [address] [address] Mar, Gastritis without bleeding, unspecified chronicity, unspecified gastritis type K29.70 [place] [address] [address] Mar, Bipolar 1 disorder, mixed F3 1.60 [place] [address] [address] Mar, Gastritis without bleeding, unspecified chronicity, unspecified gastritis type K29.70 [facility] [address] [facility] [id number] [address] [place] [id number] Mar, [facility] [address] [facility] [id number] [address] [place] [address] 27 Feb, 2016 Bipolar 1 disorder, mixed F3 1.60 [place] [address] [place] [id number] [place] [address] Feb, Bipolar 1 disorder, mixed F3 1.60 and Grief F43.20 [place] [address] [place] [id number] [address] [place] [phone] 22 Feb, 2016 Gastritis without bleeding, unspecified chronicity, unspecified gastritis type K29.70 [place] [address] [place] [id number] [address] [place] [id number] 14 Feb, 2016 Bipolar 1 disorder, mixed F3 1.60 [facility] [address] [place] [id number] [address] [place] [id number] 09 Feb, 2016 Gastroesophageal reflux dise ase, esophagitis presence not specified K21.9 [place] [address] [place] [address] Jan, Bipolar 1 disorder, mixed F3 1.60 [place] [address] [place] [id number] [address] [place] [id number] Jan, Bipolar 1 disorder, mixed F3 1.60 and Unsteady gait R26.81 [place] [address] [place] [id number] [address] [place] [address] Jan, Bipolar 1 disorder, mixed F3 1.60 [place] [address] [place] [address] Jan, Bipolar 1 disorder, mixed F3 1.60 and 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 [id number] [address] [place] [id number] Jan, Bipolar 1 disorder, mixed F3 1.60 [facility] [address] 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 [id number] [address] [place] [id number] Jan, Bipolar 1 disorder, mixed F3 1.60 [place] [address] [place] [id number] [address] [place] [id number] Dec, [place] [address] [place] [id number] [address] [place] [id number] Dec, Bipolar 1 disorder, mixed F3 1.60 ; Vitamin D deficiency, unspecified E55.9 ; H/O allergic rhinitis Z87.09 ; Other chronic pain G89.29 and Dorsalgia, unspecified M54.9 [place] [address] [place] [id number] [address] [place] [id number] Dec, [place] [address] [place] [id number] [address] [place] [id number] Dec, Bipolar 1 disorder, mixed F3 1.60 [place] [address] [place] [id number] [address] [place] [id number] Dec, Major depressive disorder, r ecurrent episode, moderate F33.1 [facility] [address] [facility] [id number] [address] [place] [id number] Dec, Major depressive disorder, r ecurrent episode, moderate F33.1 [place] [address] [facility] [id number] [address] [place] [phone] Nov, [facility] [address] [place] [id number] [address] [place] [id number] Nov, Bipolar 1 disorder, mixed F3 1.60 [facility] [address] [facility] [id number] [address] [place] [id number] Nov, Major depressive disorder, r ecurrent episode, moderate F33.1 [facility] [address] [facility] [id number] [address] [place] [address] Nov, Cervicalgia M54.2 ; Arthralg ia of hip, unspecified laterality M25.559 ; Allergic rhinitis J30.9 and Hormone replacement therapy Z79.890 [facility] [address] [facility] [id number] [address] [place] [address] Nov, Other seasonal allergic rhin itis J30.2 [facility] [address] [facility] [id number] [address] [place] [id number] October, Major depressive disorder, r ecurrent episode, moderate F33.1 [place] [address] [facility] [id number] [address] [place] [phone] October, Major depressive disorder, r ecurrent episode, moderate F33.1 and Arthralgia of hip, unspecified laterality M25.559 [place] [address] [facility] [id number] [address] [place] [address] October, Grief F43.20 ; Hypertension I10 ; Hyperlipidemia, unspecified hyperlipidemia type E78.5 ; Other chronic pain G89.29 and Allergic rhinitis, unspecified allergic rhinitis type J30.9 [facility] [address] [facility] [id number] [address] [place] [address] October, Major depressive disorder, r ecurrent episode, moderate F33.1 [place] [address] [facility] [id number] [address] [place] [id number] Sep, Major depressive disorder, r ecurrent episode, moderate F33.1 [place] [address] [facility] [id number] [address] [place] [address] Sep, [place] [id number] [facility] [id number] [address] [place] [id number] Sep, Major depressive disorder, r ecurrent episode, moderate F33.1 [facility] [address] [facility] [id number] [address] [place] [id number] 05 Sep, 2015 Grief F43.20 [place] [address] [facility] [id number] [address] [place] [id number] Aug, Major depressive disorder, r ecurrent episode, moderate F33.1 [place] [address] [place] [id number] [place] [address] Aug, Bipolar 1 disorder, mixed F3 1.60 [place] [address] [place] [id number] [place] [address] Aug, Allergic rhinitis J30.9 ; Ce rvicalgia M54.2 and Low back pain M54.5 [place] [address] [facility] [id number] [address] [place] [address] Aug, Major depressive disorder, r ecurrent episode, moderate F33.1 [facility] [address] [place] [id number] [address] [place] [phone] Aug, Sinusitis J32.9 and Tobacco 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 [facility] [address] [address] Aug, [facility] [address] [place] [id number] [place] [address] Aug, Depressive disorder, not els ewhere classified F32.9 ; Hormone replacement therapy Z79.[address] scan, head R93.0 [facility] [address] [place] [id number] [address] [place] [address] Aug, Major depressive disorder, r ecurrent episode, moderate F33.1 [facility] [address] [place] [id number] [address] [place] [id number] Jul, Major depressive disorder, r ecurrent episode, moderate F33.1 [facility] [address] [place] [id number] [address] [place] [phone] Jul, Abdominal pain R10.9 and Hyp ertension I10 [facility] [address] [facility] [id number] [address] [place] [id number] Jul, [facility] [address] [facility] [id number] [address] [place] [id number] Jul, Major depressive disorder, r ecurrent episode, moderate F33.1 [facility] [address] [place] [id number] [address] [place] [id number] Jul, [facility] [address] [id number] [address] [place] [id number] Jul, [facility] [address] [facility] [id number] [address] [place] [id number] Jun, [facility] [address] [place] [id number] [address] [place] [id number] Jun, Depressive disorder, not els ewhere classified F32.9 [facility] [address] [facility] [id number] [address] [place] [id number] Jun, [facility] [address] [facility] [id number] [address] [place] [id number] Jun, [facility] [address] [place] [id number] [address] [place] [id number] Jun, Arthralgia of hip, unspecifi ed laterality M25.559 ; Bruising, spontaneous R23.3 and Night sweats R61 [facility] [address] [facility] [id number] [address] [place] [phone] Jun, [facility] [address] [place] [id number] [address] [place] [phone] Jun, [facility] [address] [place] [id number] [address] [place] [id number] May, [facility] [address] [place] [id number] [address] [place] [id number] May, Myalgia M79.1 and Screening, lipid Z13.220 [facility] [address] [id number] [address] [place] [address] Apr, Status post cervical spinal fusion Z98.1 ; Fibromyalgia M79.7 and Unsteady gait R26.81 [facility] [address] [id number] [address] [place] [phone] Nov, [facility] [address] [id number] [address] [place] [phone] Nov, [facility] [address] [id number] [address] [place] [phone] October, [facility] [address] [id number] [address] [place] [id number] October, [facility] [address] [id number] [address] [place] [phone] October, [facility] [address] [facility] [id number] [address] [place] [phone] October, [facility] [address] [facility] [id number] [address] [place] [phone] October, [facility] [address] [facility] [id number] [address] [place] [address] October, Dysuria 788.1 ; Nausea 787.0 2 and Urinary tract infection 599.0 [facility] [address] [facility] [id number] [address] [place] [id number] Sep, [facility] [address] [facility] [id number] [address] [place] [phone] Sep, [facility] [address] [facility] [id number] [address] [place] [phone] Aug, [facility] [address] [facility] [id number] [address] [place] [id number] Aug, [facility] [address] [facility] [id number] [address] [place] [phone] Aug, [facility] [place] [facility] [address] [id number] [facility] [place] [address] 24 Aug, 2014 [facility] [address] [id number] [facility] [place] [address] 23 Aug, 2014 [facility] [address] [id number] [facility] [place] [address] 19 Aug, 2014 [facility] [address] [id number] [facility] [place] [address] 19 Aug, 2014 [facility] [address] [id number] [facility] [place] [address] 19 Aug, 2014 [facility] [address] [id number] [address] [place] [address], [place] [address] 19 Aug, 2014 [facility] [address] [id number] [address] [place] [address], [place] [address] 18 Aug, 2014 [facility] [address] [id number] [address] [place] [address], [place] [address] 18 Aug, 2014 [facility] [address] [id number] [address] [place] [address], [place] [address] 13 Aug, 2014 [facility] [address] [id number] [address] [place] [address], [place] [address] 13 Aug, 2014 [facility] [address] [id number] [address] [place] [address], [place] [address] 11 Aug, 2014 [facility] [address] [id number] [address] [place] [address], [place] [address] 11 Aug, 2014 [facility] [address] [id number] [address] [place] [address], [place] [address] 06 Aug, 2014 [facility] [address] [id number] [address] [place] [address], [place] [address] 06 Aug, 2014 [facility] [address] [id number] [address] [place] [address], [place] [address] 05 Aug, 2014 [facility] [address] [id number] [address] [place] [address], [place] [address] Aug, [facility] [address] [id number] [address] [place] [address], [place] [address] Aug, [facility] [address] [id number] [address] [place] [address], [place] [address] Aug, [facility] [address] [id number] [address] [place] [address], [place] [address] Aug, [facility] [address] [id number] [address] [place] [address], [place] [address] Jul, 2014 [facility] [address] [id number] [address] [place] [address], [place] [address] Jul, 2014 [facility] [address] [id number] [address] [place] [address], [place] [address] Jul, 2014 [facility] [address] [id number] [address] [place] [address], [place] [address] Jul, 2014 [facility] [address] [id number] [address] [place] [address], [place] [address] Jul, 2014 [facility] [address] [id number] [address] [place] [address], [place] [address] Jul, 2014 [facility] [address] [id number] [address] [place] [address], [place] [address] Jul, 2014 [facility] [address] [id number] [address] [place] [address], [place] [address] Jul, 2014 [facility] [address] [id number] [address] [place] [address], [place] [address] Jul, 2014 [facility] [address] [id number] [address] [place] [address], [place] [address] Jul, 2014 [facility] [address] [id number] [address] [place] [address], [place] [address] Jul, 2014 [facility] [address] [id number] [address] [place] [address], [place] [address] Jul, 2014 [facility] [address] [id number] [address] [place] [address], [place] [address] Jul, 2014 [facility] [address] [id number] [address] [place] [address], [place] [address] Jul, [facility] [address] [id number] [address] [place] [address], [place] [address] Jun, [facility] [address] [id number] [address] [place] [address], [place] [address] Jun, [facility] [address] [id number] [address] [place] [address], [place] [address] Jun, [facility] [address] [id number] [address] [place] [address], [place] [address] Jun, [facility] [address] [id number] [address] [place] [address], [place] [address] Jun, [facility] [address] [id number] [address] [place] [address], [place] [address] Jun, [facility] [address] [id number] [address] [place] [address], [place] [address] May, [facility] [address] [id number] [address] [place] [address], [place] [address] May, [facility] [address] [id number] [address] [place] [address], [place] [address] May, [facility] [address] [id number] [address] [place] [address], [place] [address] May, [facility] [address] [id number] [address] [place] [address], [place] [address] May, [facility] [address] [id number] [address] [place] [address], [place] [address] May, [facility] [address] [id number] [address] [place] [address], [place] [address] Apr, [facility] [address] [id number] [address] [place] [address] Apr, [facility] [address] [id number] [address] [place] [address], [place] [address] Apr, [facility] [address] [id number] [address] [place] [address] Apr, [facility] [address] [id number] [address] [place] [address], [place] [address] Apr, [facility] [address] [id number] [address] [place] [address] Apr, [facility] [address] [id number] [address] [place] [address], [place] [address] Mar, [facility] [address] [id number] [address] [place] [address], [place] [address] Mar, [facility] [address] [id number] [address] [place] [id number] Mar, [facility] [address] [id number] [address] [place] [id number] Mar, [facility] [address] [id number] [address] [place] [id number] Mar, [facility] [address] [id number] [address] [place] [id number] Mar, [facility] [address] [id number] [address] [place] [id number] Mar, [facility] [address] [id number] [address] [place] [id number] Mar, [facility] [address] [id number] [address] [place] [id number] Mar, [facility] [address] [id number] [address] [place] [id number] Mar, [facility] [address] [id number] [address] [place] [address], [place] [address] Mar, [facility] [address] [id number] [address] [place] [address], [place] [address] Mar, [facility] [address] [id number] [address] [place] [address], [place] [address] 30 Feb, 2013 [facility] [address] [id number] [address] [place] [address], [place] [address] 29 Feb, 2013 [facility] [address] [id number] [address] [place] [address], [place] [address] 29 Feb, 2013 [facility] [address] [id number] [address] [place] [address], [place] [address] Feb, 2013 [facility] [address] [id number] [address] [place] [address], [place] [address] Feb, 2013 [facility] [address] [id number] [address] [place] [address], [place] [address] Feb, [facility] [address] [id number] [address] [place] [address], [place] [address] Feb, [facility] [address] [id number] [address] [place] [address], [place] [address] Jan, [facility] [address] [id number] [address] [place] [address], [place] [address] Jan, [facility] [address] [id number] [address] [place] [address], [place] [address] Jan, [facility] [address] [id number] [address] [place] [address], [place] [address] Dec, [facility] [address] [id number] [address] [place] [address], [place] [address] Dec, [facility] [address] [id number] [address] [place] [address], [place] [address] Dec, [facility] [address] [id number] [address] [place] [address], [place] [address] Dec, [facility] [address] [id number] [address] [place] [address], [place] [address] Sep, [facility] [address] [id number] [address] [place] [address], [place] [address] Sep, [facility] [address] [id number] [address] [place] [address], [place] [address] Sep, [facility] [address] [id number] [address] [place] [address], [place] [address] Sep, [facility] [address] [id number] [address] [place] [address], [place] [address] Sep, [facility] [address] [id number] [address] [place] [address], [place] [address] Sep, [facility] [address] [id number] [address] [place] [address], [place] [address] Sep, [facility] [address] [id number] [address] [place] [address], [place] [address] Sep, [facility] [address] [id number] [address] [place] [address], [place] [address] Aug, [facility] [address] [id number] [address] [place] [address], [place] [address] Aug, [facility] [address] [id number] [address] [place] [address], [place] [address] May, [facility] [address] [id number] [address] [place] [address], [place] [address] May, [facility] [address] [id number] [address] [place] [address], [place] [address] Apr, [facility] [address] [id number] [address] [place] [address], [place] [address] Apr, [facility] [address] [id number] [address] [place] [address], [place] [address] Apr, [facility] [address] [id number] [address] [place] [address], [place] [address] Apr, [facility] [address] [id number] [address] [place] [address], [place] [address] Apr, [facility] [address] [id number] [address] [place] [address], [place] [address] Apr, [facility] [address] [id number] [address] [place] [address], [place] [address] 18 May, 2012 [facility] [address] [id number] [address] [place] [address], [place] [address] 18 May, 2012 [facility] [address] [id number] [address] [place] [address], [place] [address] 15 May, 2012 [facility] [address] [id number] [address] [place] [address], [place] [address] 15 May, 2012 [facility] [address] [id number] [address] [place] [address], [place] [address] 13 May, 2012 [facility] [address] [id number] [address] [place] [address], [place] [address] 13 May, 2012 [facility] [address] [id number] [address] [place] [address], [place] [address] 13 Apr, 2012 [facility] [address] [id number] [address] [place] [address], [place] [address] 13 Apr, 2012 [facility] [address] [id number] [address] [place] [address], [place] [address] Apr, [facility] [address] [id number] [address] [place] [address], [place] [address] Apr, [facility] [address] [id number] [address] [place] [address], [place] [address] Apr, [facility] [address] [id number] [address] [place] [address], [place] [address] Apr, [facility] [address] [id number] [address] [place] [address], [place] [address] Apr, [facility] [address] [id number] [address] [place] [address], [place] [address] Apr, [facility] [address] [id number] [address] [place] [address], [place] [address] Apr, [facility] [address] [id number] [address] [place] [address], [place] [address] Apr, [facility] [address] [id number] [address] [place] [address], [place] [address] Mar, [facility] [address] [id number] [address] [place] [address], [place] [address] Mar, [facility] [address] [id number] [address] [place] [address], [place] [address] Mar, [facility] [address] [id number] [address] [place] [address], [place] [address] Mar, [facility] [address] [id number] [address] [place] [address], [place] [address] Mar, [facility] [address] [id number] [address] [place] [address], [place] [address] Mar, [facility] [address] [id number] [address] [place] [address], [place] [address] Mar, [facility] [address] [id number] [address] [place] [address], [place] [address] Mar, [facility] [address] [id number] [address] [place] [address], [place] [address] Mar, [facility] [address] [id number] [address] [place] [address], [place] [address] 25 Feb, 2012 [facility] [address] [id number] [address] [place] [address], [place] [address] 16 Feb, 2012 [facility] [address] [id number] [address] [place] [address], [place] [address] 11 Feb, 2012 [facility] [address] [id number] [address] [place] [address], [place] [address] Jan, [facility] [address] [id number] [address] [place] [address], [place] [address] Jan, [facility] [address] [id number] [facility] [place] [address] Jan, [facility] [address] [id number] [address] [place] [address], [place] [address] Jan, [facility] [address] [id number] [address] [place] [address], [place] [address] Jan, [facility] [address] [id number] [address] [place] [address], [place] [address] Jan, [facility] [address] [id number] [address] [place] [address], [place] [address] Jan, [facility] [address] [id number] [address] [place] [address], [place] [address] Jan, [facility] [address] [id number] [address] [place] [address], [place] [address] Jan, [facility] [address] [id number] [address] [place] [address], [place] [address] Jan, [facility] [address] [id number] [address] [place] [address], [place] [address] Dec, [facility] [address] [id number] [address] [place] [address], [place] [address] Dec, [facility] [address] [id number] [address] [place] [address], [place] [address] Dec, [facility] [address] [id number] [address] [place] [address], [place] [address] Dec, [facility] [address] [id number] [address] [place] [address], [place] [address] Nov, [facility] [address] [id number] [address] [place] [address], [place] [address] Nov, [facility] [address] [id number] [address] [place] [address], [place] [address] Nov, [facility] [address] [id number] [address] [place] [address] October, [facility] [address] [id number] [address] [place] [address] October, [facility] [address] [id number] [address] [place] [address] October, [facility] [address] [id number] [address] [place] [address] October, [facility] [address] [id number] [address] [place] [address] October, [facility] [address] [id number] [address] [place] [address] October, [facility] [address] [id number] [address] [place] [address] Aug, [facility] [address] [id number] [address] [place] [address] Mar, [facility] [address] [id number] [address] [place] [address] Nov, [facility] [address] [id number] [address] [place] [address] May, [facility] [address] [id number] [address] [place] [address] May, [facility] [address] [id number] [address] [place] [address] Apr, [facility] [address] [id number] [address] [place] [address] Mar, [facility] [address] [id number] [address] [place] [address] Mar, IMMUNIZATIONS No Known Immunizations SOCIAL HISTORY Never Assessed REASON FOR VISIT med refill PLAN OF CARE VITAL SIGNS MEDICATIONS Medication [...]
--- OUTSIDE RECORDS SUMMARY | 2019-06-19 05:28 | XMS REPORT ---
Author Author Sydnie MORTON Organization [facility] Address [address] [place] [address] Care Team Providers Care Family Service Counselor Name Role Phone JOHN MORTON Unavailable PROBLEMS Type Condition ICD9-CM Code MYR34-VE Code Onset Dates Condition S tatus SNOMED Code Problem Hormone replacement therapy Z79.890 Ac tive 967152841 Problem Abnormal CT scan, head R93.0 Active 559061195 Problem Sensorineural hearing loss (SNHL) of both ears H90 .3 Active 518192079 Problem History of colon polyps Z86.010 Active 977508991 Problem Bruising, spontaneous R23.3 Active 860132493 Problem Generalized anxiety disorder F41.1 A ctive 26103966 Problem Arthralgia of hip, unspecified laterality M25.559 Active 48226642 Problem Hematuria, unspecified type R31.9 Ac tive 43330925 Problem Imbalance R26.89 Active 255227184 Problem Hammer toe of right foot M20.41 Activ e 379465047 Problem Plantar wart of right foot B07.0 Act mitchell [id number] Problem Sciatica of left side M54.32 Active 79139264 Problem Hyperlipidemia, unspecified hyperlipidemia type E7 8.5 Active 41183252 Problem Hypertension I10 Active 0023525 3 Problem Night sweats R61 Active 1460207 0 Problem Fibromyalgia M79.7 Active 5076339 7 Problem Major depressive disorder, recurrent episode, moderate F33.1 Active 100003987 Problem Acute left-sided low back pain with left-sided sciatica M54.42 Active 331880919 Problem Bladder spasm N32.89 Active 171032 006 Problem Gastritis without bleeding, unspecified chronicity, unspecified gastritis type K29.70 Active 548639102 Problem Bipolar 1 disorder, mixed F31.60 Acti ve 89563923 Problem Grief F43.20 Active 99612323 Problem Other chronic pain G89.29 Active 8 6180159 Problem Allergic rhinitis J30.9 Active 61 436034 Problem Hot flashes due to menopause N95.1 A ctive 984382486 Problem Ataxia R27.0 Active 68906063 Problem Hearing loss, unspecified laterality H91.90 Active 48771617 ALLERGIES No Information ENCOUNTERS Encounter Location Date Diagnosis [facility] [address] [facility] [id number] [address] [place] [address] Mar, [facility] [address] [facility] [id number] [address] [place] [address] Mar, [facility] [address] [facility] [id number] [address] [place] [address] Mar, [facility] [address] [facility] [id number] [address] [place] [address] Mar, [facility] [address] [facility] [id number] [address] [place] [address] Mar, [facility] [address] [facility] [id number] [address] [place] [address] Feb, [facility] [address] [facility] [id number] [address] [place] [address] 13 Feb, 2018 Bipolar 1 disorder, mixed F3 1.60 [facility] [address] [facility] [id number] [address] [place] [address] 11 Feb, 2018 Allergic rhinitis J30.9 [facility] [address] [facility] [id number] [address] [place] [address] 05 Feb, 2018 [facility] [address] [facility] [id number] [address] [place] [address] Jan, Bipolar 1 disorder, mixed F3 1.60 [facility] [address] [facility] [id number] [address] [place] [address] Jan, Low back pain M54.5 ; Hyperl ipidemia, unspecified hyperlipidemia type E78.5 and Bipolar 1 disorder, mixed F31.60 [facility] [address] [facility] [id number] [address] [place] [address] Jan, Bipolar 1 disorder, mixed F3 1.60 [facility] [address] [id number] [address] [place] [address] Jan, Bipolar 1 disorder, mixed F3 1.60 [facility] [address] [facility] [id number] [address] [place] [address] Jan, Bipolar 1 disorder, mixed F3 1.60 [facility] [address] [facility] [id number] [address] [place] [address] Jan, Bipolar 1 disorder, mixed F3 1.60 [facility] [address] [facility] [id number] [address] [place] [address] Dec, Bipolar 1 disorder, mixed F3 1.60 ; Generalized anxiety disorder F41.1 and 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 [facility] [address] [facility] [id number] [address] [place] [address] Dec, Other senior living (current) dr ug therapy Z79.899 [facility] [address] [id number] [address] [place] [address] Dec, Bipolar 1 disorder, mixed F3 1.60 [facility] [address] [facility] [id number] [address] [place] [address] Dec, Bipolar 1 disorder, mixed F3 1.60 [facility] [address] [facility] [id number] [address] [place] [address] Nov, Bipolar 1 disorder, mixed F3 1.60 [facility] [address] [id number] [address] [place] [address] Nov, Bipolar 1 disorder, mixed F3 1.60 [facility] [address] [facility] [id number] [address] [place] [address] Nov, Bipolar 1 disorder, mixed F3 1.60 [facility] [address] [facility] [id number] [address] [place] [address] Nov, Allergic rhinitis J30.9 [facility] [address] [place] [id number] [address] [place] [address] Nov, Allergic rhinitis J30.9 [facility] [address] [address] Nov, [facility] [address] [address] Nov, Bipolar 1 disorder, mixed F3 1.60 [facility] [address] [address] Nov, Fibromyalgia M79.7 and Aller gic rhinitis J30.9 [place] [address] [address] October, Bipolar 1 disorder, mixed F3 1.60 [facility] [address] [address] October, Acute nasopharyngitis J00 [facility] [address] [address] October, Bitten or stung by nonvenomo us insect and other nonvenomous arthropods, initial encounter W57.XXXA and Insect bite (nonvenomous) of abdominal wall, initial encounter S30.861A [facility] [address] [address] October, Insect bite (nonvenomous) of abdominal wall, initial encounter S30.861A ; Bitten or stung by nonvenomous insect and other nonvenomous arthropods, initial encounter W57.XXXA ; Allergic rhinitis J30.9 and Low back pain M54.5 [facility] [address] [address] October, Bipolar 1 disorder, mixed F3 1.60 [facility] [address] [place] [id number] [place] [address] October, [facility] [address] [address] October, [facility] [address] [id number] [address] [place] [address] October, Bipolar 1 disorder, mixed F3 1.60 [facility] [address] [id number] [address] [place] [address] Sep, Bipolar 1 disorder, mixed F3 1.60 [facility] [address] [id number] [address] [place] [address] Sep, Other chronic pain G89.29 [facility] [address] [id number] [address] [place] [address] Sep, [facility] [address] [facility] [id number] [address] [place] [address] Sep, Bipolar 1 disorder, mixed F3 1.60 [facility] [address] [facility] [id number] [address] [place] [address] Sep, Allergic rhinitis J30.9 and Sciatica of left side M54.32 [facility] [address] [facility] [id number] [address] [place] [address] Sep, Bipolar 1 disorder, mixed F3 1.60 [facility] [address] [facility] [id number] [address] [place] [address] Sep, Bipolar 1 disorder, mixed F3 1.60 and Generalized anxiety disorder F41.1 [facility] [address] [facility] [id number] [address] [place] [address] Aug, [facility] [address] [facility] [id number] [address] [place] [address] Aug, Bipolar 1 disorder, mixed F3 1.60 [facility] [address] [facility] [id number] [address] [place] [address] Aug, Bipolar 1 disorder, mixed F3 1.60 [facility] [address] [facility] [id number] [address] [place] [address] Aug, [facility] [address] [facility] [id number] [address] [place] [address] Aug, Generalized anxiety disorder F41.1 [facility] [address] [facility] [id number] [address] [place] [address] Aug, Bipolar 1 disorder, mixed F3 1.60 [facility] [address] [facility] [id number] [address] [place] [address] Aug, Plantar wart of right foot B 07.0 [facility] [address] [facility] [id number] [address] [place] [address] Aug, Bipolar 1 disorder, mixed F3 1.60 [place] [address] [address] Jul, Bipolar 1 disorder, mixed F3 1.60 [place] [address] [place] [id number] [address] [place] [address] Jul, [facility] [address] [address] Jul, Bipolar 1 disorder, mixed F3 1.60 [facility] [address] [place] [id number] [address] [place] [address] Jul, Generalized anxiety disorder F41.1 [facility] [address] [place] [id number] [address] [place] [address] Jul, Bipolar 1 disorder, mixed F3 1.60 [place] [address] [place] [id number] [address] [place] [address] Jul, Acute left-sided low back pa in with left-sided sciatica M54.42 [facility] [address] [facility] [id number] [address] [place] [address] Jul, Coccydynia M53.3 [facility] [address] [facility] [id number] [address] [place] [address] Jun, Bipolar 1 disorder, mixed F3 1.60 [facility] [address] [place] [id number] [address] [place] [address] Jun, Acute nasopharyngitis J00 [facility] [address] [place] [id number] [place] [address] Jun, Bipolar 1 disorder, mixed F3 1.60 [facility] [address] [place] [id number] [address] [place] [address] Jun, Fibromyalgia M79.7 [facility] [address] [address] Jun, Bipolar 1 disorder, mixed F3 1.60 [place] [address] [address] Jun, Fibromyalgia M79.7 and Bipol ar 1 disorder, mixed F31.60 [place] [address] [place] [id number] [place] [address] May, Bipolar 1 disorder, mixed F3 1.60 ; Generalized anxiety disorder F41.1 and 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 [place] [address] [address] May, Bipolar 1 disorder, mixed F3 1.60 [facility] [address] [address] 14 May, 2017 Cough R05 and Body aches R52 [facility] [address] [address] 10 May, 2017 Bladder spasm N32.89 and Acu te cystitis without hematuria N30.00 [place] [address] [address] May, Bipolar 1 disorder, mixed F3 1.60 [place] [address] [address] Apr, [facility] [address] [address] Apr, Major depressive disorder, r ecurrent episode, moderate F33.1 and Encounter for immunization Z23 [facility] [address] [address] Apr, Bipolar 1 disorder, mixed F3 1.60 [facility] [address] [place] [id number] [place], [place] [address] Apr, Bipolar 1 disorder, mixed F3 1.60 [facility] [address] [place] [address] Apr, Bipolar 1 disorder, mixed F3 1.60 [facility] [address] [address] Apr, Yeast vaginitis B37.3 [facility] [address] [place] [address] Apr, Bipolar 1 disorder, mixed F3 1.60 [facility] [address] [address] Apr, Cellulitis L03.[address] for immunization Z23 [place] [address] [address] Apr, Bipolar 1 disorder, mixed F3 1.60 [facility] [address] [address] Mar, Bipolar 1 disorder, mixed F3 1.60 [place] [address] [address] Mar, Bipolar 1 disorder, mixed F3 1.60 [facility] [address] [address] Mar, Imbalance R26.89 [address] En[address] er for immunization Z23 [facility] [address] [place] [id number] [place] [address] Mar, Generalized anxiety disorder F41.1 [place] [address] [address] Mar, Bipolar 1 disorder, mixed F3 1.60 [place] [id number] [place] [address] Mar, Generalized anxiety disorder F41.1 [place] [address] [place] [address] Mar, Bipolar 1 disorder, mixed F3 1.60 [place] [address] [address] Mar, Bipolar 1 disorder, mixed F3 1.60 [place] [address] [place] [id number] [place] [address] Feb, Bipolar 1 disorder, mixed F3 1.60 [place] [address] [place] [address] Feb, Bipolar 1 disorder, mixed F3 1.60 and Generalized anxiety disorder F41.1 [place] [address] [address] Feb, Gastritis without bleeding, unspecified chronicity, unspecified gastritis type K29.70 ; Hammer toe of right foot M20.41 and Other viral warts B07.8 [place] [address] [address] Feb, Bipolar 1 disorder, mixed F3 1.60 [place] [address] [address] Feb, Bipolar 1 disorder, mixed F3 1.60 [place] [address] [place] [id number] [address] [place] [address] Feb, Bipolar 1 disorder, mixed F3 1.60 [place] [address] [address] Jan, Encounter for screening mamm ogram for breast cancer Z12.31 ; Other viral warts B07.8 and Allergic rhinitis J30.9 [place] [address] [address] Jan, Bipolar 1 disorder, mixed F3 1.60 [facility] [address] [facility] [id number] [address] [place] [address] Jan, Bipolar 1 disorder, mixed F3 1.60 [facility] [address] [facility] [id number] [address] [place] [address] Jan, [facility] [address] [facility] [id number] [address] [place] [address] Jan, Bipolar 1 disorder, mixed F3 1.60 [facility] [address] [facility] [id number] [address] [place] [address] Jan, Bipolar 1 disorder, mixed F3 1.60 [place] [address] [place] [id number] [address] [place] [address] Jan, Allergic rhinitis J30.9 ; He maturia R31.9 and Colon cancer screening Z12.11 [facility] [address] [place] [id number] [address] [place] [address] Dec, Bipolar 1 disorder, mixed F3 1.60 [facility] [address] [facility] [id number] [address] [place] [address] Dec, Bipolar 1 disorder, mixed F3 1.60 ; Generalized anxiety disorder F41.1 and 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 [facility] [address] [place] [id number] [address] [place] [address] Dec, Bipolar 1 disorder, mixed F3 1.60 [facility] [address] [facility] [id number] [address] [place] [address] Dec, Bipolar 1 disorder, mixed F3 1.60 [place] [address] [place] [id number] [address] [place] [address] Dec, Bipolar 1 disorder, mixed F3 1.60 [facility] [address] [facility] [id number] [address] [place] [address] Dec, Low back pain M54.5 and Recu rrent urinary tract infection N39.0 [facility] [address] [id number] [address] [place] [address] Nov, Bipolar 1 disorder, mixed F3 1.60 [facility] [address] [id number] [address] [place] [address] Nov, Bipolar 1 disorder, mixed F3 1.60 [facility] [address] [facility] [id number] [address] [place] [address] Nov, Bipolar 1 disorder, mixed F3 1.60 [facility] [address] [id number] [address] [place] [address] Nov, Bipolar 1 disorder, mixed F3 1.60 [facility] [address] [facility] [id number] [address] [place] [address] Nov, [facility] [address] [facility] [id number] [address] [place] [address] Nov, Anesthesia of skin R20.0 ; F requent UTI N39.0 ; Tobacco abuse Z72.0 and Colon cancer screening Z12.11 [facility] [address] [facility] [id number] [address] [place] [address] Nov, Bipolar 1 disorder, mixed F3 1.60 [facility] [address] [facility] [id number] [address] [place] [address] October, Bipolar 1 disorder, mixed F3 1.60 [facility] [address] [facility] [id number] [address] [place] [address] October, Bipolar 1 disorder, mixed F3 1.60 [facility] [address] [facility] [id number] [address] [place] [address] October, Bipolar 1 disorder, mixed F3 1.60 [facility] [address] [facility] [id number] [address] [place] [address] October, Bipolar 1 disorder, mixed F3 1.60 [facility] [address] [facility] [id number] [address] [place] [address] October, Bipolar 1 disorder, mixed F3 1.60 [place] [address] [address] October, Cervicalgia M54.2 and Bipola r 1 disorder, mixed F31.60 [place] [address] [place] [id number] [address] [place] [address] October, Hypertension I10 ; Hyperlipi demia, unspecified hyperlipidemia type E78.5 and Family history of thyroid disease Z83.49 [place] [address] [address] October, [place] [address] [place] [address] October, Hypertension I10 ; Hyperlipi demia, unspecified hyperlipidemia type E78.5 and Family history of thyroid problem Z83.49 [place] [address] [address] October, Bipolar 1 disorder, mixed F3 1.60 [place] [address] [address] Sep, Bipolar 1 disorder, mixed F3 1.60 [place] [address] [address] Sep, Bipolar 1 disorder, mixed F3 1.60 [place] [address] [address] Sep, Bipolar 1 disorder, mixed F3 1.60 [place] [address] [address] Sep, History of colon polyps Z86. 010 and Hematochezia K92.1 [place] [address] [address] Sep, Major depressive disorder, r ecurrent episode, moderate F33.1 [place] [address] [address] Sep, Bipolar 1 disorder, mixed F3 1.60 [facility] [address] [facility] [id number] [address] [place] [address] Aug, Hot flashes due to menopause N95.1 [facility] [address] [facility] [id number] [address] [place] [address] Aug, Bipolar 1 disorder, mixed F3 1.60 [facility] [address] [place] [id number] [address] [place] [address] Aug, [facility] [address] [facility] [id number] [address] [place] [address] Aug, Bipolar 1 disorder, mixed F3 1.60 [facility] [address] [facility] [id number] [address] [place] [address] Aug, Bipolar 1 disorder, mixed F3 1.60 [facility] [address] [place] [id number] [address] [place] [address] Aug, Hot flashes due to menopause N95.1 ; Cervicalgia M54.2 and Ataxia R27.0 [facility] [address] [facility] [id number] [address] [place] [address] Jul, Bipolar 1 disorder, mixed F3 1.60 [facility] [address] [facility] [id number] [address] [place] [address] Jul, Bipolar 1 disorder, mixed F3 1.60 [facility] [address] [facility] [id number] [address] [place] [address] Jul, Bipolar 1 disorder, mixed F3 1.60 [facility] [address] [facility] [id number] [address] [place] [address] Jul, Bipolar 1 disorder, mixed F3 1.60 [facility] [address] [facility] [id number] [address] [place] [address] Jul, Bipolar 1 disorder, mixed F3 1.60 [facility] [address] [place] [id number] [address] [place] [address] Jul, Cervicalgia M54.2 ; Tremor R 25.1 ; Hearing abnormally acute, unspecified laterality H93.239 ; Alopecia L65.9 ; Encounter for immunization Z23 and Family history of thyroid disease Z83.49 [place] [address] [place] [address] Jul, Bipolar 1 disorder, mixed F3 1.60 [place] [address] Jun, [place] [address] Jun, Hearing disorder, unspecifie d laterality H93.299 [place] [address] Jun, Bipolar 1 disorder, mixed F3 1.60 [place] [address] [address] Jun, Bipolar 1 disorder, mixed F3 1.60 [place] [address] [address] Jun, Allergic rhinitis J30.9 [place] [address] [place] [id number] Jun, Bipolar 1 disorder, mixed F3 1.60 [place] [address] [address] Jun, Bipolar 1 disorder, mixed F3 1.60 [place] [address] [address] Jun, Allergic rhinitis J30.9 [place] [address] [address] Jun, Allergic rhinitis J30.9 [place] [address] [address] Jun, Bipolar 1 disorder, mixed F3 1.60 [place] [address] [address] May, Bipolar 1 disorder, mixed F3 1.60 [facility] [address] [facility] [id number] [address] [place] [id number] May, Bipolar 1 disorder, mixed F3 1.60 [facility] [address] [facility] [id number] [address] [place] [address] May, [facility] [address] [facility] [id number] [address] [place] [address] May, Bipolar 1 disorder, mixed F3 1.60 [facility] [address] [facility] [id number] [address] [place] [address] May, Bipolar 1 disorder, mixed F3 1.60 [facility] [address] [facility] [id number] [address] [place] [id number] May, [facility] [address] [place] [id number] [address] [place] [id number] May, [facility] [address] [facility] [id number] [address] [place] [id number] May, [facility] [address] [place] [id number] [address] [place] [address] May, Abdominal pain, unspecified location R10.9 [facility] [address] [place] [id number] [address] [place] [address] May, [facility] [address] [facility] [id number] [address] [place] [id number] Apr, Hematuria R31.9 ; Ataxia R27 .0 and Hearing loss, unspecified laterality H91.90 [facility] [address] [facility] [id number] [address] [place] [id number] Apr, Bipolar 1 disorder, mixed F3 1.60 [facility] [address] [facility] [id number] [address] [place] [address] [address] Apr, Acute effusion of both middl e ears H65.193 [facility] [address] [place] [address] Apr, Hematuria R31.9 and Pyelonep hritis N12 [place] [address] [address] Apr, [place] [address] [place] [id number] [place] [address] Mar, Bipolar 1 disorder, mixed F3 1.60 [place] [address] [address] Mar, [place] [address] [address] Mar, Bipolar 1 disorder, mixed F3 1.60 [place] [address] [address] Mar, Bipolar 1 disorder, mixed F3 1.60 [place] [address] [address] Mar, Encounter for immunization Z 23 and Gastritis without bleeding, unspecified chronicity, unspecified gastritis type K29.70 [place] [address] [address] Mar, Bipolar 1 disorder, mixed F3 1.60 and Grief F43.20 [place] [address] [address] Mar, Gastritis without bleeding, unspecified chronicity, unspecified gastritis type K29.70 [place] [address] [place] [id number] [address] [place] [address] Mar, Bipolar 1 disorder, mixed F3 1.60 [place] [address] [address] Mar, Gastritis without bleeding, unspecified chronicity, unspecified gastritis type K29.70 [place] [address] [place] [id number] [address] [place] [address] Mar, [place] [address] [facility] [id number] [address] [place] [address] 27 Feb, 2016 Bipolar 1 disorder, mixed F3 1.60 [facility] [address] [place] [address] Feb, Bipolar 1 disorder, mixed F3 1.60 and Grief F43.20 [facility] [address] [place] [address] 22 Feb, 2016 Gastritis without bleeding, unspecified chronicity, unspecified gastritis type K29.70 [facility] [address] [place] [id number] [address] [place] [address] 14 Feb, 2016 Bipolar 1 disorder, mixed F3 1.60 [facility]ALK IN [facility] [address] [place] [id number] [address] [place] [address] 09 Feb, 2016 Gastroesophageal reflux dise ase, esophagitis presence not specified K21.9 [facility] [address] [place] [id number] [address] [place] [address] Jan, Bipolar 1 disorder, mixed F3 1.60 [facility] [address] [place] [id number] [place] [address] Jan, Bipolar 1 disorder, mixed F3 1.60 and Unsteady gait R26.81 [place] [address] [place] [id number] [place] [address] Jan, Bipolar 1 disorder, mixed F3 1.60 [facility] [address] [place] [id number] [address] [place] [address] Jan, Bipolar 1 disorder, mixed F3 1.60 and 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 Z79.899 [place] [address] [place] [id number] [place] [address] Jan, Bipolar 1 disorder, mixed F3 1.60 [place] [address] [place] [id number] [address] [place] [address] Jan, Bipolar 1 disorder, mixed F3 1.60 [place] [address] [place] [id number] [address] [place] [address] Jan, Bipolar 1 disorder, mixed F3 1.60 ; Grief F43.20 and 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 Z79.899 [place] [address] [facility] [id number] [address] [place] [address] Jan, Bipolar 1 disorder, mixed F3 1.60 [place] [address] [facility] [id number] [address] [place] [address] Dec, [place] [address] [facility] [id number] [address] [place] [address] Dec, Bipolar 1 disorder, mixed F3 1.60 ; Vitamin D deficiency, unspecified E55.9 ; H/O allergic rhinitis Z87.09 ; Other chronic pain G89.29 and Dorsalgia, unspecified M54.9 [place] [address] [place] [id number] [address] [place] [address] Dec, [place] [address] [address] [facility] [id number] [address] [place] [address] Dec, Bipolar 1 disorder, mixed F3 1.60 [place] [address] [place] [id number] [address] [place] [address] Dec, Major depressive disorder, r ecurrent episode, moderate F33.1 [place] [address] [facility] [id number] [address] [place] [address] Dec, Major depressive disorder, r ecurrent episode, moderate F33.1 [place] [address] [facility] [id number] [address] [place] [address] Nov, [place] [address] [facility] [id number] [address] [place] [address] Nov, Bipolar 1 disorder, mixed F3 1.60 [place] [address] [facility] [id number] [address] [place] [address] Nov, Major depressive disorder, r ecurrent episode, moderate F33.1 [place] [address] [facility] [id number] [address] [place] [address] Nov, Cervicalgia M54.2 ; Arthralg ia of hip, unspecified laterality M25.559 ; Allergic rhinitis J30.9 and Hormone replacement therapy Z79.890 [facility] WALK IN [facility] [address] [facility] [id number] [address] [place] [address] 13 Nov, 2015 Other seasonal allergic rhin itis J30.2 [facility] [address] [facility] [id number] [address] [place] [address] October, Major depressive disorder, r ecurrent episode, moderate F33.1 [place] [address] [place] [id number] [address] [place] [address] October, Major depressive disorder, r ecurrent episode, moderate F33.1 and Arthralgia of hip, unspecified laterality M25.559 [place] [address] [place] [address] October, Grief F43.20 ; Hypertension I10 ; Hyperlipidemia, unspecified hyperlipidemia type E78.5 ; Other chronic pain G89.29 and Allergic rhinitis, unspecified allergic rhinitis type J30.9 [place] [address] [address] [facility] [id number] [address] [place] [address] October, Major depressive disorder, r ecurrent episode, moderate F33.1 [place] [address] [facility] [id number] [address] [place] [address] Sep, Major depressive disorder, r ecurrent episode, moderate F33.1 [place] [address] [facility] [id number] [address] [place] [address] Sep, [place] [address] [place] [id number] [address] [place] [address] Sep, Major depressive disorder, r ecurrent episode, moderate F33.1 [place] [address] [place] [id number] [address] [place] [address] Sep, Grief F43.20 [place] [address] [place] [id number] [address] [place] [address] Aug, Major depressive disorder, r ecurrent episode, moderate F33.1 [place] [address] [facility] [id number] [address] [place] [address] Aug, Bipolar 1 disorder, mixed F3 1.60 [place] [address] [place] [id number] [address] [place] [address] Aug, Allergic rhinitis J30.9 ; Ce rvicalgia M54.2 and Low back pain M54.5 [place] [address] [place] [id number] [address] [place] [address] Aug, Major depressive disorder, r ecurrent episode, moderate F33.1 [facility] [address] [facility] [id number] [address] [place] [address] Aug, Sinusitis J32.9 and Tobacco 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 [place] [address] [place] [address] Aug, [place] [address] [place] [address] Aug, Depressive disorder, not els ewhere classified F32.9 ; Hormone replacement therapy Z79.[address] scan, head R93.0 [place] [address] [place] [address] Aug, Major depressive disorder, r ecurrent episode, moderate F33.1 [place] [address] [place] [id number] [address] [place] [address] Jul, Major depressive disorder, r ecurrent episode, moderate F33.1 [place] [address] [place] [address] Jul, Abdominal pain R10.9 and Hyp ertension I10 [place] [address] [place] [id number] [address] [place] [address] Jul, [place] [address] [place] [id number] [address] [place] [address] 05 Jul, 2015 Major depressive disorder, r ecurrent episode, moderate F33.1 [facility] [address] [facility] [id number] [address] [place] [address] 04 Jul, 2015 [facility] [address] [facility] [id number] [address] [place] [address] Jul, [facility] [address] [id number] [address] [place] [address] Jun, [facility] [address] [facility] [id number] [address] [place] [address] Jun, Depressive disorder, not els ewhere classified F32.9 [facility] [address] [facility] [id number] [address] [place] [address] Jun, [place] [address] [place] [id number] [address] [place] [address] Jun, [place] [address] [facility] [id number] [address] [place] [address] Jun, Arthralgia of hip, unspecifi ed laterality M25.559 ; Bruising, spontaneous R23.3 and Night sweats R61 [place] [address] [facility] [id number] [address] [place] [address] Jun, [place] [address] [facility] [id number] [address] [place] [address] Jun, [place] [address] [facility] [id number] [address] [place] [address] May, [place] [address] [place] [id number] [address] [place] [address] 15 May, 2015 Myalgia M79.1 and Screening, lipid Z13.220 [facility] [address] [facility] [id number] [address] [place] [address] 10 Apr, 2015 Status post cervical spinal fusion Z98.1 ; Fibromyalgia M79.7 and Unsteady gait R26.81 [facility] [address] [id number] [address] [place] [address] Nov, [facility] [address] [id number] [address] [place] [address] Nov, [facility] [address] [id number] [place] [address] October, [facility] [address] [id number] [address] [place] [address] October, [facility] [address] [id number] [address] [place] [address] October, [facility] [address] [id number] [address] [place] [address] October, [facility] [address] [facility] [id number] [address] [place] [address] October, [facility] [address] [facility] [id number] [address] [place] [address] October, Dysuria 788.1 ; Nausea 787.0 2 and Urinary tract infection 599.0 [facility] [address] [id number] [address] [place] [address] Sep, [facility] [address] [facility] [id number] [address] [place] [address] Sep, [facility] [address] [id number] [address] [place] [address] Aug, [facility] [address] [id number] [address] [place] [address] Aug, [facility] [address] [id number] [address] [place] [address] Aug, [facility] [address] [id number] [address] [place] [address] Aug, [facility] [address] [id number] [address] [place] [address] Aug, 2014 [facility] [address] [id number] [facility] [place] [address] 19 Aug, 2014 [facility] [place] [facility] [address] [id number] [address] [place] [address], [place] [address] 19 Aug, 2014 [facility] [place] [facility] [address] [id number] [address] [place] [address], [place] [address] 19 Aug, 2014 [facility] [place] [facility] [address] [id number] [address] [place] [address], [place] [address] 19 Aug, 2014 [facility] [place] [facility] [address] [id number] [address] [place] [address], [place] [address] 18 Aug, 2014 [facility] [place] [facility] [address] [id number] [address] [place] [address], [place] [address] 18 Aug, 2014 [facility] [place] [facility] [address] [id number] [address] [place] [address], [place] [address] 13 Aug, 2014 [facility] [place] [facility] [address] [id number] [address] [place] [address], [place] [address] 13 Aug, 2014 [facility] [place] [facility] [address] [id number] [address] [place] [address], [place] [address] 11 Aug, 2014 [facility] [place] [facility] [address] [id number] [address] [place] [address], [place] [address] 11 Aug, 2014 [facility] [place] [facility] [address] [id number] [address] [place] [address], [place] [address] 06 Aug, 2014 [facility] [place] [facility] [address] [id number] [address] [place] [address], [place] [address] 06 Aug, 2014 [facility] [place] [facility] [address] [id number] [address] [place] [address], [place] [address] 05 Aug, 2014 [facility] [place] [facility] [address] [id number] [address] [place] [address], [place] [address] 05 Aug, 2014 [facility] [place] [facility] [address] [id number] [address] [place] [address], [place] [address] 04 Aug, 2014 [facility] [place] [facility] [address] [id number] [address] [place] [address] Aug, [facility] [address] [id number] [address] [place] [address], [place] [address] Aug, [facility] [place] [facility] [address] [id number] [address] [place] [address], [place] [address] Jul, 2014 [facility] [place] [facility] [address] [id number] [address] [place] [address], [place] [address] Jul, 2014 [facility] [place] [facility] [address] [id number] [address] [place] [address], [place] [address] Jul, 2014 [facility] [place] [facility] [address] [id number] [address] [place] [address], [place] [address] Jul, 2014 [facility] [place] [facility] [address] [id number] [address] [place] [address], [place] [address] Jul, 2014 [facility] [place] [facility] [address] [id number] [address] [place] [address], [place] [address] Jul, 2014 [facility] [place] [facility] [address] [id number] [address] [place] [address], [place] [address] Jul, 2014 [facility] [place] [facility] [address] [id number] [address] [place] [address], [place] [address] Jul, 2014 [facility] [place] [facility] [address] [id number] [address] [place] [address], [place] [address] Jul, 2014 [facility] [place] [facility] [address] [id number] [address] [place] [address] Jul, 2014 [facility] [place] [facility] [address] [id number] [address] [place] [address], [place] [address] Jul, 2014 [facility] [place] [facility] [address] [id number] [address] [place] [address], [place] [address] Jul, 2014 [facility] [place] [facility] [address] [id number] [address] [place] [address] Jul, 2014 [facility] [place] [facility] [address] [id number] [address] [place] [address] Jul, [facility] [address] [id number] [address] [place] [address], [place] [address] Jun, [facility] [address] [id number] [address] [place] [address], [place] [address] Jun, [facility] [address] [id number] [address] [place] [address], [place] [address] Jun, [facility] [address] [id number] [address] [place] [address], [place] [address] Jun, [facility] [address] [id number] [address] [place] [address], [place] [address] Jun, [facility] [address] [id number] [address] [place] [address], [place] [address] Jun, [facility] [address] [id number] [address] [place] [address], [place] [address] May, [facility] [address] [id number] [address] [place] [address], [place] [address] May, [facility] [address] [id number] [address] [place] [address], [place] [address] May, [facility] [address] [id number] [address] [place] [address], [place] [address] May, [facility] [address] [id number] [address] [place] [address], [place] [address] May, [facility] [address] [id number] [address] [place] [address], [place] [address] May, [facility] [address] [id number] [address] [place] [address], [place] [address] Apr, [facility] [place] [facility] [address] [id number] [address] [place] [address], [place] [address] Apr, [facility] [address] [id number] [address] [place] [address], [place] [address] Apr, [facility] [place] [facility] [address] [id number] [address] [place] [address], [place] [address] Apr, [facility] [place] [facility] [address] [id number] [address] [place] [address], [place] [address] Apr, [facility] [place] [facility] [address] [id number] [address] [place] [address], [place] [address] Apr, [facility] [place] [facility] [address] [id number] [address] [place] [address], [place] [address] Mar, [facility] [place] [facility] [address] [id number] [address] [place] [address], [place] [address] Mar, [facility] [place] [facility] [address] [id number] [address] [place] [address], [place] [address] Mar, [facility] [place] [facility] [address] [id number] [address] [place] [address], [place] [address] Mar, [facility] [place] [facility] [address] [id number] [address] [place] [address], [place] [address] Mar, [facility] [place] [facility] [address] [id number] [address] [place] [address], [place] [address] Mar, [facility] [place] [facility] [address] [id number] [address] [place] [address], [place] [address] Mar, [facility] [place] [facility] [address] [id number] [address] [place] [address], [place] [address] Mar, [facility] [place] [facility] [address] [id number] [address] [place] [address], [place] [address] Mar, [facility] [place] [facility] [address] [id number] [address] [place] [address], [place] [address] Mar, [facility] [place] [facility] [address] [id number] [address] [place] [address], [place] [address] Mar, [facility] [place] [facility] [address] [id number] [address] [place] [address], [place] [address] Mar, [facility] [place] [facility] [address] [id number] [address] [place] [address], [place] [address] 30 Feb, 2014 [facility] [place] [facility] [address] [id number] [facility] [place] [address] 29 Feb, 2014 [facility] [place] [facility] [address] [id number] [facility] [place] [address] 29 Feb, 2014 [facility] [place] [facility] [address] [id number] [facility] [place] [address] Feb, [facility] [place] [facility] [address] [id number] [address] [place] [address], [place] [address] Feb, [facility] [place] [facility] [address] [id number] [address] [place] [address], [place] [address] Feb, [facility] [place] [facility] [address] [id number] [address] [place] [address], [place] [address] Feb, [facility] [place] [facility] [address] [id number] [address] [place] [address], [place] [address] Jan, [facility] [place] [facility] [address] [id number] [address] [place] [address], [place] [address] Jan, [facility] [address] [id number] [address] [place] [address], [place] [address] Jan, [facility] [address] [id number] [address] [place] [address], [place] [address] Dec, [facility] [address] [id number] [address] [place] [address], [place] [address] Dec, [facility] [address] [id number] [address] [place] [address], [place] [address] Dec, [facility] [address] [id number] [address] [place] [address], [place] [address] Dec, [facility] [address] [id number] [address] [place] [address], [place] [address] Sep, [facility] [address] [id number] [address] [place] [address], [place] [address] Sep, [facility] [address] [id number] [address] [place] [address], [place] [address] Sep, [facility] [address] [id number] [address] [place] [address], [place] [address] Sep, [facility] [address] [id number] [address] [place] [address], [place] [address] Sep, [facility] [address] [id number] [address] [place] [address], [place] [address] Sep, [facility] [address] [id number] [address] [place] [address], [place] [address] Sep, [facility] [address] [id number] [address] [place] [address], [place] [address] Sep, [facility] [address] [id number] [address] [place] [address], [place] [address] Aug, [facility] [address] [id number] [address] [place] [address], [place] [address] Aug, [facility] [address] [id number] [address] [place] [address], [place] [address] May, [facility] [address] [id number] [address] [place] [address], [place] [address] May, [facility] [address] [id number] [address] [place] [address], [place] [address] Apr, [facility] [address] [id number] [address] [place] [address], [place] [address] Apr, [facility] [address] [id number] [address] [place] [address], [place] [address] Apr, [facility] [address] [id number] [address] [place] [address], [place] [address] Apr, [facility] [address] [id number] [address] [place] [address], [place] [address] Apr, [facility] [address] [id number] [address] [place] [address], [place] [address] Apr, [facility] [address] [id number] [address] [place] [address], [place] [address] 18 May, 2012 [facility] [address] [id number] [address] [place] [address], [place] [address] 18 May, 2012 [facility] [address] [id number] [address] [place] [address], [place] [address] 15 May, 2012 [facility] [address] [id number] [address] [place] [address], [place] [address] 15 May, 2012 [facility] [address] [id number] [address] [place] [address], [place] [address] 13 May, 2012 [facility] [address] [id number] [address] [place] [address], [place] [address] 13 May, 2012 [facility] [address] [id number] [address] [place] [address], [place] [address] 13 Apr, 2012 [facility] [address] [id number] [address] [place] [address], [place] [address] 13 Apr, 2012 [facility] [address] [id number] [address] [place] [address], [place] [address] Apr, [facility] [address] [id number] [address] [place] [address], [place] [address] Apr, [facility] [address] [id number] [address] [place] [address], [place] [address] Apr, [facility] [address] [id number] [address] [place] [address], [place] [address] Apr, [facility] [address] [id number] [address] [place] [address], [place] [address] Apr, [facility] [address] [id number] [address] [place] [address], [place] [address] Apr, [facility] [address] [id number] [address] [place] [address], [place] [address] 07 Apr, 2012 [facility] [address] [id number] [address] [address] Apr, [facility] [address] [id number] [address] [place] [address], [place] [address] Mar, [facility] [address] [id number] [address] [place] [address], [place] [address] Mar, [facility] [address] [id number] [address] [place] [address], [place] [address] Mar, [facility] [address] [id number] [address] [place] [address] Mar, [facility] [address] [id number] [address] [place] [address], [place] [address] Mar, [facility] [address] [id number] [address] [place] [id number] Mar, [facility] [address] [id number] [address] [place] [address], [place] [address] Mar, [facility] [address] [id number] [address] [place] [address] Mar, [facility] [address] [id number] [address] [place] [address], [place] [address] Mar, [facility] [address] [id number] [address] [place] [address] Feb, [facility] [address] [id number] [address] [place] [id number] 16 Feb, 2012 [facility] [address] [id number] [address] [place] [address] Feb, [facility] [address] [id number] [address] [place] [address], [place] [address] Jan, [facility] [address] [id number] [address] [place] [id number] Jan, [facility] [address] [id number] [address] [place] [address] Jan, [facility] [address] [id number] [address] [place] [address], [place] [address] 18 Jan, 2012 [facility] [address] [id number] [address] [place] [address], [place] [address] Jan, [facility] [address] [id number] [address] [place] [address], [place] [address] Jan, [facility] [address] [id number] [address] [place] [address], [place] [address] 16 Jan, 2012 [facility] [address] [id number] [address] [place] [address], [place] [address] Jan, [facility] [address] [id number] [address] [place] [address], [place] [address] Jan, [facility] [address] [id number] [address] [place] [address], [place] [address] Jan, [facility] [address] [id number] [address] [place] [address], [place] [address] Dec, [facility] [address] [id number] [address] [place] [address], [place] [address] Dec, [facility] [address] [id number] [address] [place] [address], [place] [address] Dec, [facility] [address] [id number] [address] [place] [address], [place] [address] Dec, [facility] [address] [id number] [address] [place] [address], [place] [address] Nov, [facility] [address] [id number] [address] [place] [address], [place] [address] Nov, [facility] [address] [id number] [address] [place] [address], [place] [address] Nov, [facility] [address] [id number] [address] [place] [address], [place] [address] October, [facility] [address] [id number] [address] [place] [address], [place] [address] October, [facility] [address] [id number] [address] [place] [phone] October, [facility] [address] [id number] [address] [place] [id number] October, [facility] [address] [id number] [address] [place] [id number] October, [facility] [address] [id number] [address] [place] [id number] October, [facility] [address] [id number] [address] [place] [id number] Aug, [facility] [address] [id number] [address] [place] [address] Mar, [facility] [address] [id number] [address] [place] [id number] Nov, [facility] [address] [id number] [address] [place] [address] May, [facility] [address] [id number] [address] [place] [address] May, [facility] [address] [id number] [address] [place] [id number] Apr, [facility] [address] [id number] [address] [place] [id number] Mar, [facility] [address] [id number] [address] [place] [id number] Mar, IMMUNIZATIONS No Known Immunizations SOCIAL HISTORY Never Assessed REASON FOR VISIT BH f/u PLAN OF CARE Activity Details Follow Up 1 Week Reason:BH F/U VITAL SIGNS MEDICATIONS Unknown Medications RESULTS No Results PROCEDURES Procedure Date Ordered Result Body Site [facility] ESTAB PT Jan 24, 2018 Psychotherapy, patient &/family, 45 minutes, established patient Jan 24, 2018 INSTRUCTIONS MEDICATIONS ADMINISTERED No Known Medications MEDICAL (GENERAL) HISTORY Type Description Date Medical History Severe spinal stenosis throu cervical spine CT and MRI done 10/2014 at [facility] with Neurosurgery at Medical History Migraine BEAR [...]
--- OUTSIDE RECORDS SUMMARY | 2019-06-19 05:28 | XMS REPORT ---
Author Author Sydnie MORTON Organization [facility] Address [address] [place] [address] Care Team Providers Care Sustainability Coach Name Role Phone JOHN MORTON Unavailable PROBLEMS Type Condition ICD9-CM Code [id number] Code Onset Dates Condition S tatus SNOMED Code Problem Hormone replacement therapy Z79.890 Ac tive 072643582 Problem Abnormal CT scan, head R93.0 Active 509782196 Problem Sensorineural hearing loss (SNHL) of both ears H90 .3 Active 736176311 Problem History of colon polyps Z86.010 Active 113885629 Problem Bruising, spontaneous R23.3 Active 128900456 Problem Generalized anxiety disorder F41.1 A ctive 62304301 Problem Arthralgia of hip, unspecified laterality M25.559 Active 19173735 Problem Hematuria, unspecified type R31.9 Ac tive 40780227 Problem Imbalance R26.89 Active 371633947 Problem Hammer toe of right foot M20.41 Activ e 899620133 Problem Plantar wart of right foot B07.0 Act mitchell [id number] Problem Sciatica of left side M54.32 Active 98556055 Problem Hyperlipidemia, unspecified hyperlipidemia type E7 8.5 Active 74280015 Problem Hypertension I10 Active 7119840 3 Problem Night sweats R61 Active 9459331 0 Problem Fibromyalgia M79.7 Active 4122875 7 Problem Major depressive disorder, recurrent episode, moderate F33.1 Active 470895024 Problem Acute left-sided low back pain with left-sided sciatica M54.42 Active 698920452 Problem Bladder spasm N32.89 Active 921307 006 Problem Gastritis without bleeding, unspecified chronicity, unspecified gastritis type K29.70 Active 244377905 Problem Bipolar 1 disorder, mixed F31.60 Acti ve 57202931 Problem Grief F43.20 Active 39376212 Problem Other chronic pain G89.29 Active 8 0389176 Problem Allergic rhinitis J30.9 Active 61 335144 Problem Hot flashes due to menopause N95.1 A ctive 333145088 Problem Ataxia R27.0 Active 08165776 Problem Hearing loss, unspecified laterality H91.90 Active 92249989 ALLERGIES No Information ENCOUNTERS Encounter Location Date Diagnosis [facility] [address] [facility] [id number] [address] [place] [address] Apr, [facility] [address] [facility] [id number] [address] [place] [address] Mar, [facility] [address] [facility] [id number] [address] [place] [address] Mar, [facility] [address] [facility] [id number] [address] [place] [address] Mar, [facility] [address] [facility] [id number] [address] [place] [phone] Mar, [facility] [address] [facility] [id number] [address] [place] [address] Feb, [facility] [address] [facility] [id number] [address] [place] [address] Feb, Bipolar 1 disorder, mixed F3 1.60 and Generalized anxiety disorder F41.1 [facility] [address] [facility] [id number] [address] [place] [phone] 13 Feb, 2018 Bipolar 1 disorder, mixed F3 1.60 [facility] [address] [facility] [id number] [address] [place] [phone] 11 Feb, 2018 Allergic rhinitis J30.9 [facility] [address] [facility] [id number] [address] [place] [phone] 05 Feb, 2018 [facility] [address] [facility] [id number] [address] [place] [address] Jan, Bipolar 1 disorder, mixed F3 1.60 [facility] [address] [facility] [id number] [address] [place] [address] Jan, Low back pain M54.5 ; Hyperl ipidemia, unspecified hyperlipidemia type E78.5 and Bipolar 1 disorder, mixed F31.60 [facility] [address] [facility] [id number] [address] [place] [address] Jan, Bipolar 1 disorder, mixed F3 1.60 [facility] [address] [facility] [id number] [address] [place] [address] Jan, Bipolar 1 disorder, mixed F3 1.60 [facility] [address] [facility] [id number] [address] [place] [address] Jan, Bipolar 1 disorder, mixed F3 1.60 [facility] [address] [facility] [id number] [address] [place] [address] Jan, Bipolar 1 disorder, mixed F3 1.60 [facility] [address] [facility] [id number] [address] [place] [address] Dec, Bipolar 1 disorder, mixed F3 1.60 ; Generalized anxiety disorder F41.1 and 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.899 [facility] [address] [facility] [id number] [address] [place] [address] Dec, Other ocean transportation intermediary (current) dr ug therapy Z79.899 [facility] [address] [facility] [id number] [address] [place] [address] Dec, Bipolar 1 disorder, mixed F3 1.60 [facility] [address] [facility] [id number] [address] [place] [address] Dec, Bipolar 1 disorder, mixed F3 1.60 [facility] [address] [facility] [id number] [address] [place] [address] Nov, Bipolar 1 disorder, mixed F3 1.60 [facility] [address] [facility] [id number] [address] [place] [address] Nov, Bipolar 1 disorder, mixed F3 1.60 [facility] [address] [facility] [id number] [address] [place] [address] Nov, Bipolar 1 disorder, mixed F3 1.60 [facility] [address] [place] [id number] [address] [place] [address] Nov, Allergic rhinitis J30.9 [facility] [address] [address] Nov, Allergic rhinitis J30.9 [facility] [id number] [place] [address] Nov, [facility] [address] [address] Nov, Bipolar 1 disorder, mixed F3 1.60 [place] [address] [address] Nov, Fibromyalgia M79.7 and Aller gic rhinitis J30.9 [place] [address] [address] October, Bipolar 1 disorder, mixed F3 1.60 [facility] [address] [address] October, Acute nasopharyngitis J00 [facility] [address] [address] October, Bitten or stung by nonvenomo us insect and other nonvenomous arthropods, initial encounter W57.XXXA and Insect bite (nonvenomous) of abdominal wall, initial encounter S30.861A [place] [address] [address] October, Insect bite (nonvenomous) of abdominal wall, initial encounter S30.861A ; Bitten or stung by nonvenomous insect and other nonvenomous arthropods, initial encounter W57.XXXA ; Allergic rhinitis J30.9 and Low back pain M54.5 [place] [address] [place] [id number] [address] [place] [address] October, Bipolar 1 disorder, mixed F3 1.60 [place] [address] [place] [id number] [address] [place] [address] October, [facility] [address] [id number] [address] [place] [address] October, [facility] [address] [id number] [address] [place] [address] October, Bipolar 1 disorder, mixed F3 1.60 [facility] [address] [facility] [id number] [address] [place] [address] Sep, Bipolar 1 disorder, mixed F3 1.60 [facility] [address] [id number] [address] [place] [address] Sep, Other chronic pain G89.29 [facility] [address] [facility] [id number] [address] [place] [address] Sep, [facility] [address] [facility] [id number] [address] [place] [address] Sep, Bipolar 1 disorder, mixed F3 1.60 [facility] [address] [facility] [id number] [address] [place] [address] Sep, Allergic rhinitis J30.9 and Sciatica of left side M54.32 [facility] [address] [facility] [id number] [address] [place] [address] Sep, Bipolar 1 disorder, mixed F3 1.60 [facility] [address] [facility] [id number] [address] [place] [address] Sep, Bipolar 1 disorder, mixed F3 1.60 and Generalized anxiety disorder F41.1 [facility] [address] [facility] [id number] [address] [place] [address] Aug, [facility] [address] [facility] [id number] [address] [place] [address] Aug, Bipolar 1 disorder, mixed F3 1.60 [facility] [address] [facility] [id number] [address] [place] [address] Aug, Bipolar 1 disorder, mixed F3 1.60 [facility] [address] [id number] [address] [place] [address] Aug, [facility] [address] [facility] [id number] [address] [place] [address] Aug, Generalized anxiety disorder F41.1 [facility] [address] [facility] [id number] [address] [place] [address] Aug, Bipolar 1 disorder, mixed F3 1.60 [facility] [address] [facility] [id number] [address] [place] [address] Aug, Plantar wart of right foot B 07.0 [facility] [address] [facility] [id number] [address] [place] [address] Aug, Bipolar 1 disorder, mixed F3 1.60 [facility] [address] [facility] [id number] [address] [place] [address] Jul, Bipolar 1 disorder, mixed F3 1.60 [facility] [address] [facility] [id number] [address] [place] [address] Jul, [facility] [address] [facility] [id number] [address] [place] [address] Jul, Bipolar 1 disorder, mixed F3 1.60 [facility] [address] [facility] [id number] [address] [place] [address] Jul, Generalized anxiety disorder F41.1 [facility] [address] [facility] [id number] [address] [place] [address] Jul, Bipolar 1 disorder, mixed F3 1.60 [facility] [address] [facility] [id number] [address] [place] [address] Jul, Acute left-sided low back pa in with left-sided sciatica M54.42 [facility] [address] [facility] [id number] [address] [place] [address] 05 Jul, 2017 Coccydynia M53.3 [facility] [address] [address] Jun, Bipolar 1 disorder, mixed F3 1.60 [facility] [address] [address] Jun, Acute nasopharyngitis J00 [facility] [address] [address] Jun, Bipolar 1 disorder, mixed F3 1.60 [facility] [address] [address] Jun, Fibromyalgia M79.7 [place] [address] [address] Jun, Bipolar 1 disorder, mixed F3 1.60 [place] [address] [address] Jun, Fibromyalgia M79.7 and Bipol ar 1 disorder, mixed F31.60 [place] [address] [address] May, Bipolar 1 disorder, mixed F3 1.60 ; Generalized anxiety disorder F41.1 and Other ocean transportation intermediary (current) drug therapy Z79.899 [place] [address] [address] May, Bipolar 1 disorder, mixed F3 1.60 [facility] [address] [address] 14 May, 2017 Cough R05 and Body aches R52 [facility] [address] [address] 10 May, 2017 Bladder spasm N32.89 and Acu te cystitis without hematuria N30.00 [facility] [address] [address] 07 May, 2017 Bipolar 1 disorder, mixed F3 1.60 [place] [address] [address] Apr, [facility] [address] [address] Apr, Major depressive disorder, r ecurrent episode, moderate F33.1 and Encounter for immunization Z23 [facility] [address] [place] [address] Apr, Bipolar 1 disorder, mixed F3 1.60 [facility] [address] [place] [address] Apr, Bipolar 1 disorder, mixed F3 1.60 [place] [id number] Apr, Bipolar 1 disorder, mixed F3 1.60 [place] [address] [address] Apr, Yeast vaginitis B37.3 [place] [address] [address] Apr, Bipolar 1 disorder, mixed F3 1.60 [facility] [address] [address] Apr, Cellulitis L03.[address] for immunization Z23 [place] [address] [address] Apr, Bipolar 1 disorder, mixed F3 1.60 [facility] [address] [address] Mar, Bipolar 1 disorder, mixed F3 1.60 [place] [address] [address] Mar, Bipolar 1 disorder, mixed F3 1.60 [facility] [address] [place] [address] Mar, Imbalance R26.89 [address] for immunization Z23 [facility] [address] [place] [address] Mar, Generalized anxiety disorder F41.1 [facility] [address] [facility] [id number] [address] [place] [address] Mar, Bipolar 1 disorder, mixed F3 1.60 [facility] [address] [facility] [id number] [address] [place] [address] Mar, Generalized anxiety disorder F41.1 [place] [address] [place] [id number] [address] [place] [address] Mar, Bipolar 1 disorder, mixed F3 1.60 [place] [address] [facility] [id number] [address] [place] [address] Mar, Bipolar 1 disorder, mixed F3 1.60 [place] [address] [place] [id number] [address] [place] [address] Feb, Bipolar 1 disorder, mixed F3 1.60 [place] [address] [place] [id number] [address] [place] [address] Feb, Bipolar 1 disorder, mixed F3 1.60 and Generalized anxiety disorder F41.1 [place] [address] [facility] [id number] [address] [place] [address] Feb, Gastritis without bleeding, unspecified chronicity, unspecified gastritis type K29.70 ; Hammer toe of right foot M20.41 and Other viral warts B07.8 [place] [address] [facility] [id number] [address] [place] [address] Feb, Bipolar 1 disorder, mixed F3 1.60 [place] [address] [facility] [id number] [address] [place] [address] Feb, Bipolar 1 disorder, mixed F3 1.60 [place] [address] [facility] [id number] [address] [place] [address] 05 Feb, 2017 Bipolar 1 disorder, mixed F3 1.60 [place] [address] [place] [id number] [address] [place] [address] Jan, Encounter for screening mamm ogram for breast cancer Z12.31 ; Other viral warts B07.8 and Allergic rhinitis J30.9 [facility] [address] [facility] [id number] [address] [place] [address] Jan, Bipolar 1 disorder, mixed F3 1.60 [facility] [address] [facility] [id number] [address] [place] [address] Jan, Bipolar 1 disorder, mixed F3 1.60 [facility] [address] [facility] [id number] [address] [place] [address] Jan, [facility] [address] [facility] [id number] [address] [place] [address] Jan, Bipolar 1 disorder, mixed F3 1.60 [place] [address] [facility] [id number] [address] [place] [address] Jan, Bipolar 1 disorder, mixed F3 1.60 [place] [address] [place] [id number] [address] [place] [address] Jan, Allergic rhinitis J30.9 ; He maturia R31.9 and Colon cancer screening Z12.11 [place] [address] [facility] [id number] [address] [place] [address] Dec, Bipolar 1 disorder, mixed F3 1.60 [place] [address] [facility] [id number] [address] [place] [address] Dec, Bipolar 1 disorder, mixed F3 1.60 ; Generalized anxiety disorder F41.1 and Other ocean transportation intermediary (current) drug therapy Z79.899 [facility] [address] [facility] [id number] [address] [place] [address] Dec, Bipolar 1 disorder, mixed F3 1.60 [place] [address] [facility] [id number] [address] [place] [address] Dec, Bipolar 1 disorder, mixed F3 1.60 [facility] [address] [facility] [id number] [address] [place] [address] Dec, Bipolar 1 disorder, mixed F3 1.60 [place] [address] [facility] [id number] [address] [place] [address] Dec, Low back pain M54.5 and Recu rrent urinary tract infection N39.0 [facility] [address] [facility] [id number] [address] [place] [address] Nov, Bipolar 1 disorder, mixed F3 1.60 [facility] [address] [facility] [id number] [address] [place] [address] Nov, Bipolar 1 disorder, mixed F3 1.60 [place] [address] [facility] [id number] [address] [place] [address] Nov, Bipolar 1 disorder, mixed F3 1.60 [place] [address] [place] [id number] [address] [place] [address] Nov, Bipolar 1 disorder, mixed F3 1.60 [place] [address] [place] [id number] [address] [place] [address] Nov, [place] [address] [facility] [id number] [address] [place] [address] Nov, Anesthesia of skin R20.0 ; F requent UTI N39.0 ; Tobacco abuse Z72.0 and Colon cancer screening Z12.11 [place] [address] [facility] [id number] [address] [place] [address] Nov, Bipolar 1 disorder, mixed F3 1.60 [place] [address] [facility] [id number] [address] [place] [address] October, Bipolar 1 disorder, mixed F3 1.60 [place] [address] [facility] [id number] [address] [place] [address] October, Bipolar 1 disorder, mixed F3 1.60 [place] [address] [facility] [id number] [address] [place] [address] October, Bipolar 1 disorder, mixed F3 1.60 [place] [address] [place] [id number] [address] [place] [address] October, Bipolar 1 disorder, mixed F3 1.60 [facility] [address] [address] October, Bipolar 1 disorder, mixed F3 1.60 [facility] [address] [address] October, Cervicalgia M54.2 and Bipola r 1 disorder, mixed F31.60 [place] [address] [address] October, Hypertension I10 ; Hyperlipi demia, unspecified hyperlipidemia type E78.5 and Family history of thyroid disease Z83.49 [place] [address] [address] October, [place] [address] [address] October, Hypertension I10 ; Hyperlipi demia, unspecified hyperlipidemia type E78.5 and Family history of thyroid problem Z83.49 [place] [address] [address] October, Bipolar 1 disorder, mixed F3 1.60 [place] [address] [address] Sep, Bipolar 1 disorder, mixed F3 1.60 [place] [address] [address] Sep, Bipolar 1 disorder, mixed F3 1.60 [place] [address] [place] [id number] [address] [place] [address] Sep, Bipolar 1 disorder, mixed F3 1.60 [place] [address] [address] Sep, History of colon polyps Z86. 010 and Hematochezia K92.1 [place] [address] [address] Sep, Major depressive disorder, r ecurrent episode, moderate F33.1 [facility] [address] [facility] [id number] [address] [place] [address] Sep, Bipolar 1 disorder, mixed F3 1.60 [facility] [address] [facility] [id number] [address] [place] [address] Aug, Hot flashes due to menopause N95.1 [facility] [address] [facility] [id number] [address] [place] [address] Aug, Bipolar 1 disorder, mixed F3 1.60 [facility] [address] [facility] [id number] [address] [place] [id number] Aug, [facility] [address] [facility] [id number] [address] [place] [id number] Aug, Bipolar 1 disorder, mixed F3 1.60 [facility] [address] [place] [id number] [address] [place] [id number] Aug, Bipolar 1 disorder, mixed F3 1.60 [facility] [address] [facility] [id number] [address] [place] [id number] Aug, Hot flashes due to menopause N95.1 ; Cervicalgia M54.2 and Ataxia R27.0 [facility] [address] [facility] [id number] [address] [place] [id number] Jul, Bipolar 1 disorder, mixed F3 1.60 [facility] [address] [facility] [id number] [address] [place] [id number] Jul, Bipolar 1 disorder, mixed F3 1.60 [facility] [address] [facility] [id number] [address] [place] [id number] Jul, Bipolar 1 disorder, mixed F3 1.60 [facility] [address] [facility] [id number] [address] [place] [phone] Jul, Bipolar 1 disorder, mixed F3 1.60 [facility] [address] [place] [id number] [address] [place] [id number] 10 Jul, 2016 Bipolar 1 disorder, mixed F3 1.60 [place] [id number] 08 Jul, 2016 Cervicalgia M54.2 ; Tremor R 25.1 ; Hearing abnormally acute, unspecified laterality H93.239 ; Alopecia L65.9 ; Encounter for immunization Z23 and Family history of thyroid disease Z83.49 [place] [address] [place] [id number] Jul, Bipolar 1 disorder, mixed F3 1.60 [place] [address] [place] [address] Jun, [place] [address] Jun, Hearing disorder, unspecifie d laterality H93.299 [place] [address] Jun, Bipolar 1 disorder, mixed F3 1.60 [place] [place] [address] [address] Jun, Bipolar 1 disorder, mixed F3 1.60 [place] [address] [place] [address] Jun, Allergic rhinitis J30.9 [place] [address] [place] [address] Jun, Bipolar 1 disorder, mixed F3 1.60 [place] [address] [address] Jun, Bipolar 1 disorder, mixed F3 1.60 [place] [address] [place] [address] Jun, Allergic rhinitis J30.9 [place] [address] [address] Jun, Allergic rhinitis J30.9 [place] [id number] [place] [address] Jun, Bipolar 1 disorder, mixed F3 1.60 [facility] [address] [facility] [id number] [address] [place] [address] May, Bipolar 1 disorder, mixed F3 1.60 [facility] [address] [facility] [id number] [address] [place] [address] May, Bipolar 1 disorder, mixed F3 1.60 [facility] [address] [id number] [address] [place] [address] May, [facility] [address] [id number] [address] [place] [address] May, Bipolar 1 disorder, mixed F3 1.60 [facility] [address] [facility] [id number] [address] [place] [address] May, Bipolar 1 disorder, mixed F3 1.60 [facility] [address] [facility] [id number] [address] [place] [address] May, [facility] [address] [facility] [id number] [address] [place] [address] May, [facility] [address] [facility] [id number] [address] [place] [address] May, [facility] [address] [facility] [id number] [address] [place] [address] May, Abdominal pain, unspecified location R10.9 [facility] [address] [facility] [id number] [address] [place] [address] May, [facility] [address] [facility] [id number] [address] [place] [address] Apr, Hematuria R31.9 ; Ataxia R27 .0 and Hearing loss, unspecified laterality H91.90 [facility] [address] [facility] [id number] [address] [place] [address] Apr, Bipolar 1 disorder, mixed F3 1.60 [facility] [address] [place] [id number] [address] [place] [address] 11 Apr, 2016 Acute effusion of both middl e ears H65.193 [place] [address] [address] 10 Apr, 2016 Hematuria R31.9 and Pyelonep hritis N12 [place] [address] [address] Apr, [place] [address] [address] Mar, Bipolar 1 disorder, mixed F3 1.60 [place] [address] [address] Mar, [place] [address] [address] Mar, Bipolar 1 disorder, mixed F3 1.60 [place] [address] [address] Mar, Bipolar 1 disorder, mixed F3 1.60 [place] [address] [address] Mar, Encounter for immunization Z 23 and Gastritis without bleeding, unspecified chronicity, unspecified gastritis type K29.70 [place] [address] [address] Mar, Bipolar 1 disorder, mixed F3 1.60 and Grief F43.20 [place] [address] [address] Mar, Gastritis without bleeding, unspecified chronicity, unspecified gastritis type K29.70 [place] [address] [address] Mar, Bipolar 1 disorder, mixed F3 1.60 [place] [address] [address] Mar, Gastritis without bleeding, unspecified chronicity, unspecified gastritis type K29.70 [facility] [address] [facility] [id number] [address] [place] [address] Mar, [facility] [address] [facility] [id number] [address] [place] [address] 27 Feb, 2016 Bipolar 1 disorder, mixed F3 1.60 [place] [address] [place] [id number] [address] [place] [address] Feb, Bipolar 1 disorder, mixed F3 1.60 and Grief F43.20 [facility] [address] [place] [id number] [address] [place] [address] 22 Feb, 2016 Gastritis without bleeding, unspecified chronicity, unspecified gastritis type K29.70 [facility] [address] [place] [id number] [address] [place] [address] 14 Feb, 2016 Bipolar 1 disorder, mixed F3 1.60 [facility] [address] [place] [id number] [address] [place] [address] 09 Feb, 2016 Gastroesophageal reflux dise ase, esophagitis presence not specified K21.9 [place] [address] [place] [address] Jan, Bipolar 1 disorder, mixed F3 1.60 [place] [address] [place] [id number] [place] [address] Jan, Bipolar 1 disorder, mixed F3 1.60 and Unsteady gait R26.81 [place] [address] [place] [id number] [address] [place] [address] Jan, Bipolar 1 disorder, mixed F3 1.60 [place] [address] [address] Jan, Bipolar 1 disorder, mixed F3 1.60 and 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.899 [facility] [address] [place] [id number] [address] [place] [address] Jan, Bipolar 1 disorder, mixed F3 1.60 [facility] [address] [facility] [id number] [address] [place] [address] Jan, Bipolar 1 disorder, mixed F3 1.60 [facility] [address] [facility] [id number] [address] [place] [address] Jan, Bipolar 1 disorder, mixed F3 1.60 ; Grief F43.20 and 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.899 [place] [address] [facility] [id number] [address] [place] [address] Jan, Bipolar 1 disorder, mixed F3 1.60 [place] [address] [place] [id number] [address] [place] [address] Dec, [place] [address] [place] [id number] [address] [place] [address] Dec, Bipolar 1 disorder, mixed F3 1.60 ; Vitamin D deficiency, unspecified E55.9 ; H/O allergic rhinitis Z87.09 ; Other chronic pain G89.29 and Dorsalgia, unspecified M54.9 [place] [address] [place] [id number] [address] [place] [address] Dec, [place] [address] [place] [id number] [address] [place] [address] Dec, Bipolar 1 disorder, mixed F3 1.60 [place] [address] [place] [id number] [address] [place] [address] Dec, Major depressive disorder, r ecurrent episode, moderate F33.1 [facility] [address] [facility] [id number] [address] [place] [address] Dec, Major depressive disorder, r ecurrent episode, moderate F33.1 [place] [address] [facility] [id number] [address] [place] [address] Nov, [place] [address] [place] [id number] [address] [place] [address] Nov, Bipolar 1 disorder, mixed F3 1.60 [facility] [address] [facility] [id number] [address] [place] [address] Nov, Major depressive disorder, r ecurrent episode, moderate F33.1 [facility] [address] [facility] [id number] [address] [place] [address] Nov, Cervicalgia M54.2 ; Arthralg ia of hip, unspecified laterality M25.559 ; Allergic rhinitis J30.9 and Hormone replacement therapy Z79.890 [facility] [address] [facility] [id number] [address] [place] [address] Nov, Other seasonal allergic rhin itis J30.2 [facility] [address] [facility] [id number] [address] [place] [address] October, Major depressive disorder, r ecurrent episode, moderate F33.1 [place] [address] [facility] [id number] [address] [place] [address] October, Major depressive disorder, r ecurrent episode, moderate F33.1 and Arthralgia of hip, unspecified laterality M25.559 [place] [address] [facility] [id number] [address] [place] [address] October, Grief F43.20 ; Hypertension I10 ; Hyperlipidemia, unspecified hyperlipidemia type E78.5 ; Other chronic pain G89.29 and Allergic rhinitis, unspecified allergic rhinitis type J30.9 [facility] [address] [facility] [id number] [address] [place] [address] October, Major depressive disorder, r ecurrent episode, moderate F33.1 [place] [address] [facility] [id number] [address] [place] [address] Sep, Major depressive disorder, r ecurrent episode, moderate F33.1 [place] [address] [facility] [id number] [address] [place] [address] Sep, [place] [address] [facility] [id number] [address] [place] [address] Sep, Major depressive disorder, r ecurrent episode, moderate F33.1 [facility] [address] [facility] [id number] [address] [place] [address] 05 Sep, 2015 Grief F43.20 [place] [address] [place] [id number] [address] [place] [address] Aug, Major depressive disorder, r ecurrent episode, moderate F33.1 [place] [address] [address] Aug, Bipolar 1 disorder, 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 [place] [address] [address] Aug, Allergic rhinitis J30.9 ; Ce rvicalgia M54.2 and Low back pain M54.5 [place] [address] [place] [id number] [place] [address] Aug, Major depressive disorder, r ecurrent episode, moderate F33.1 [facility] [address] [place] [address] Aug, Sinusitis J32.9 and Tobacco 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 [facility] [address] [address] Aug, [facility] [address] [address] Aug, Depressive disorder, not els ewhere classified F32.9 ; Hormone replacement therapy Z79.[address] scan, head R93.0 [facility] [address] [place] [id number] [address] [place] [address] Aug, Major depressive disorder, r ecurrent episode, moderate F33.1 [facility] [address] [place] [id number] [address] [place] [address] Jul, Major depressive disorder, r ecurrent episode, moderate F33.1 [facility] [address] [place] [id number] [address] [place] [phone] 17 Feb, 2016 Abdominal pain R10.9 and Hyp ertension I10 [facility] [address] [id number] [address] [place] [address] Jul, [facility] [address] [id number] [address] [place] [address] Jul, Major depressive disorder, r ecurrent episode, moderate F33.1 [facility] [address] [facility] [id number] [address] [place] [phone] Jul, [facility] [address] [id number] [address] [place] [address] Jul, [facility] [address] [facility] [id number] [address] [place] [phone] Jun, [facility] [address] [facility] [id number] [address] [place] [address] Jun, Depressive disorder, not els ewhere classified F32.9 [facility] [address] [facility] [id number] [address] [place] [address] Jun, [facility] [address] [facility] [id number] [address] [place] [address] Jun, [facility] [address] [place] [id number] [address] [place] [address] Jun, Arthralgia of hip, unspecifi ed laterality M25.559 ; Bruising, spontaneous R23.3 and Night sweats R61 [facility] [address] [facility] [id number] [address] [place] [address] Jun, [facility] [address] [facility] [id number] [address] [place] [address] Jun, [facility] [address] [facility] [id number] [address] [place] [address] May, [facility] [address] [place] [id number] [address] [place] [address] May, Myalgia M79.1 and Screening, lipid Z13.220 [facility] [address] [id number] [address] [place] [address] Apr, Status post cervical spinal fusion Z98.1 ; Fibromyalgia M79.7 and Unsteady gait R26.81 [facility] [address] [id number] [address] [place] [address] Nov, [facility] [address] [id number] [address] [place] [address] Nov, [facility] [address] [id number] [address] [place] [address] October, [facility] [address] [id number] [address] [place] [address] October, [facility] [address] [id number] [address] [place] [address] October, [facility] [address] [id number] [address] [place] [address] October, [facility] [address] [id number] [address] [place] [phone] October, [facility] [address] [facility] [id number] [address] [place] [id number] October, Dysuria 788.1 ; Nausea 787.0 2 and Urinary tract infection 599.0 [facility] [address] [id number] [address] [place] [phone] Sep, [facility] [address] [id number] [address] [place] [phone] Sep, [facility] [address] [id number] [address] [place] [id number] Aug, [facility] [address] [id number] [address] [place] [phone] Aug, [facility] [address] [facility] [id number] [address] [place] [address] Aug, [facility] [address] [id number] [facility] [place] [address] 24 Aug, 2014 [facility] [address] [id number] [address] [place] [address], [place] [address] 23 Aug, 2014 [facility] [address] [id number] [address] [place] [address], [place] [address] 19 Aug, 2014 [facility] [address] [id number] [address] [place] [address], [place] [address] 19 Aug, 2014 [facility] [address] [id number] [address] [place] [address], [place] [address] 19 Aug, 2014 [facility] [address] [id number] [address] [place] [address], [place] [address] 19 Aug, 2014 [facility] [address] [id number] [address] [place] [address], [place] [address] 18 Aug, 2014 [facility] [address] [id number] [address] [place] [address], [place] [address] 18 Aug, 2014 [facility] [address] [id number] [address] [place] [address], [place] [address] 13 Aug, 2014 [facility] [address] [id number] [address] [place] [address], [place] [address] 13 Aug, 2014 [facility] [address] [id number] [address] [place] [address], [place] [address] 11 Aug, 2014 [facility] [address] [id number] [address] [place] [address], [place] [address] 11 Aug, 2014 [facility] [address] [id number] [address] [place] [address], [place] [address] 06 Aug, 2014 [facility] [address] [id number] [address] [place] [address], [place] [address] 06 Aug, 2014 [facility] [address] [id number] [address] [place] [address], [place] [address] 05 Aug, 2014 [facility] [address] [id number] [address] [place] [address], [place] [address] Aug, [facility] [address] [id number] [address] [place] [address], [place] [address] Aug, [facility] [address] [id number] [address] [place] [address], [place] [address] Aug, [facility] [address] [id number] [address] [place] [address], [place] [address] Aug, [facility] [address] [id number] [address] [place] [address], [place] [address] Jul, 2014 [facility] [address] [id number] [address] [place] [address], [place] [address] Jul, [facility] [address] [id number] [address] [place] [address], [place] [address] Jul, 2014 [facility] [address] [id number] [address] [place] [address], [place] [address] Jul, 2014 [facility] [address] [id number] [address] [place] [address], [place] [address] Jul, 2014 [facility] [address] [id number] [address] [place] [address], [place] [address] Jul, 2014 [facility] [address] [id number] [address] [place] [address], [place] [address] Jul, 2014 [facility] [address] [id number] [address] [place] [address], [place] [address] Jul, 2014 [facility] [address] [id number] [address] [place] [address], [place] [address] Jul, 2014 [facility] [address] [id number] [address] [place] [address], [place] [address] Jul, 2014 [facility] [address] [id number] [address] [place] [address], [place] [address] Jul, 2014 [facility] [address] [id number] [address] [place] [address], [place] [address] Jul2014 [facility] [address] [id number] [address] [place] [address], [place] [address] Jul, [facility] [address] [id number] [address] [place] [address], [place] [address] Jul, [facility] [address] [id number] [address] [place] [address], [place] [address] Jun, [facility] [address] [id number] [address] [place] [address], [place] [address] Jun, [facility] [address] [id number] [address] [place] [address], [place] [address] Jun, [facility] [address] [id number] [address] [place] [address], [place] [address] Jun, [facility] [address] [id number] [address] [place] [address], [place] [address] Jun, [facility] [address] [id number] [address] [place] [address], [place] [address] Jun, [facility] [address] [id number] [address] [place] [address], [place] [address] May, [facility] [address] [id number] [address] [place] [address], [place] [address] May, [facility] [address] [id number] [address] [place] [address], [place] [address] May, [facility] [address] [id number] [address] [place] [address], [place] [address] May, [facility] [address] [id number] [address] [place] [address], [place] [address] May, [facility] [address] [id number] [address] [place] [address], [place] [address] May, [facility] [address] [id number] [address] [place] [address], [place] [address] Apr, [facility] [address] [id number] [address] [place] [address], [place] [address] Apr, [facility] [address] [id number] [address] [place] [address], [place] [address] Apr, [facility] [address] [id number] [address] [place] [address], [place] [address] Apr, [facility] [address] [id number] [address] [place] [address], [place] [address] Apr, [facility] [address] [id number] [address] [place] [id number] Apr, [facility] [address] [id number] [address] [place] [address], [place] [address] Mar, [facility] [address] [id number] [address] [place] [address], [place] [address] Mar, [facility] [address] [id number] [address] [place] [address], [place] [address] Mar, [facility] [address] [id number] [address] [place] [id number] Mar, [facility] [address] [id number] [address] [place] [id number] Mar, [facility] [address] [id number] [address] [place] [id number] Mar, [facility] [address] [id number] [address] [place] [id number] Mar, [facility] [address] [id number] [address] [place] [id number] Mar, [facility] [address] [id number] [address] [place] [address], [place] [address] Mar, [facility] [address] [id number] [address] [place] [id number] Mar, [facility] [address] [id number] [address] [place] [address], [place] [address] Mar, [facility] [address] [id number] [address] [place] [address], [place] [address] Mar, [facility] [address] [id number] [address] [place] [address], [place] [address] 30 Feb, 2014 [facility] [address] [id number] [address] [place] [address], [place] [address] 29 Feb, 2014 [facility] [address] [id number] [address] [place] [address], [place] [address] 29 Feb, 2014 [facility] [address] [id number] [address] [place] [address], [place] [address] Feb, 2013 [facility] [address] [id number] [address] [place] [address], [place] [address] Feb, [facility] [address] [id number] [address] [place] [address], [place] [address] Feb, [facility] [address] [id number] [address] [place] [address], [place] [address] Feb, [facility] [address] [id number] [address] [place] [address], [place] [address] Jan, [facility] [address] [id number] [address] [place] [address], [place] [address] Jan, [facility] [address] [id number] [address] [place] [address], [place] [address] Jan, [facility] [address] [id number] [address] [place] [address], [place] [address] Dec, [facility] [address] [id number] [address] [place] [address], [place] [address] Dec, [facility] [address] [id number] [address] [place] [address], [place] [address] Dec, [facility] [address] [id number] [address] [place] [address], [place] [address] Dec, [facility] [address] [id number] [address] [place] [address], [place] [address] Sep, [facility] [address] [id number] [address] [place] [address], [place] [address] Sep, [facility] [address] [id number] [address] [place] [address], [place] [address] Sep, [facility] [address] [id number] [address] [place] [address], [place] [address] Sep, [facility] [address] [id number] [address] [place] [address], [place] [address] Sep, [facility] [address] [id number] [address] [place] [address], [place] [address] Sep, [facility] [address] [id number] [address] [place] [address], [place] [address] Sep, [facility] [address] [id number] [address] [place] [address], [place] [address] Sep, [facility] [address] [id number] [address] [place] [address], [place] [address] Aug, [facility] [address] [id number] [address] [place] [address], [place] [address] Aug, [facility] [address] [id number] [address] [place] [address], [place] [address] May, [facility] [address] [id number] [address] [place] [address], [place] [address] May, [facility] [address] [id number] [address] [place] [address], [place] [address] Apr, [facility] [address] [id number] [address] [place] [address], [place] [address] Apr, [facility] [address] [id number] [address] [place] [address], [place] [address] Apr, [facility] [address] [id number] [address] [place] [address], [place] [address] Apr, [facility] [address] [id number] [address] [place] [address], [place] [address] Apr, [facility] [address] [id number] [address] [place] [address], [place] [address] Apr, [facility] [address] [id number] [address] [place] [address], [place] [address] 18 May, 2012 [facility] [address] [id number] [address] [place] [address], [place] [address] 18 May, 2012 [facility] [address] [id number] [address] [place] [address], [place] [address] 15 May, 2012 [facility] [address] [id number] [address] [place] [address], [place] [address] 15 May, 2012 [facility] [address] [id number] [address] [place] [address], [place] [address] 13 May, 2012 [facility] [address] [id number] [address] [place] [address], [place] [address] 13 May, 2012 [facility] [address] [id number] [address] [place] [address], [place] [address] 13 Apr, 2012 [facility] [address] [id number] [address] [place] [address], [place] [address] 13 Apr, 2012 [facility] [address] [id number] [address] [place] [address], [place] [address] 08 Apr, 2012 [facility] [address] [id number] [address] [place] [address], [place] [address] Apr, [facility] [address] [id number] [address] [place] [address], [place] [address] Apr, [facility] [address] [id number] [address] [place] [address], [place] [address] Apr, [facility] [address] [id number] [address] [place] [address], [place] [address] Apr, [facility] [address] [id number] [address] [place] [address], [place] [address] Apr, [facility] [address] [id number] [address] [place] [address], [place] [address] Apr, [facility] [address] [id number] [address] [place] [address], [place] [address] Apr, [facility] [address] [id number] [address] [place] [address], [place] [address] Mar, [facility] [address] [id number] [address] [place] [address], [place] [address] Mar, [facility] [address] [id number] [address] [place] [address], [place] [address] Mar, [facility] [address] [id number] [address] [place] [address], [place] [address] Mar, [facility] [address] [id number] [address] [place] [address], [place] [address] Mar, [facility] [address] [id number] [address] [place] [address], [place] [address] Mar, [facility] [address] [id number] [address] [place] [address], [place] [address] Mar, [facility] [address] [id number] [address] [place] [address], [place] [address] Mar, [facility] [address] [id number] [address] [place] [address], [place] [address] Mar, [facility] [address] [id number] [address] [place] [address], [place] [address] 25 Feb, 2012 [facility] [address] [id number] [address] [place] [address], [place] [address] 16 Feb, 2012 [facility] [address] [id number] [address] [place] [address], [place] [address] 11 Feb, 2012 [facility] [address] [id number] [address] [place] [address], [place] [address] Jan, [facility] [address] [id number] [address] [place] [address], [place] [address] Jan, [facility] [address] [id number] [address] [place] [address], [place] [address] Jan, [facility] [address] [id number] [address] [place] [address], [place] [address] Jan, [facility] [address] [id number] [address] [place] [address], [place] [address] Jan, [facility] [address] [id number] [address] [place] [address], [place] [address] Jan, [facility] [address] [id number] [address] [place] [address], [place] [address] 16 Jan, 2012 [facility] [address] [id number] [address] [place] [address], [place] [address] Jan, [facility] [address] [id number] [address] [place] [address], [place] [address] Jan, [facility] [address] [id number] [address] [place] [address], [place] [address] Jan, [facility] [address] [id number] [address] [place] [address], [place] [address] Dec, [facility] [address] [id number] [address] [place] [address], [place] [address] Dec, [facility] [address] [id number] [address] [place] [address], [place] [address] Dec, [facility] [address] [id number] [address] [place] [address], [place] [address] Dec, [facility] [address] [id number] [address] [place] [address], [place] [address] Nov, [facility] [address] [id number] [address] [place] [address], [place] [address] Nov, [facility] [address] [id number] [address] [place] [address], [place] [address] Nov, [facility] [address] [id number] [address] [place] [address] October, [facility] [address] [id number] [address] [place] [address] October, [facility] [address] [id number] [address] [place] [address] October, [facility] [address] [id number] [address] [place] [address] October, [facility] [address] [id number] [address] [place] [address] October, [facility] [address] [id number] [address] [place] [address] October, [facility] [address] [id number] [address] [place] [address] Aug, [facility] [address] [id number] [address] [place] [address] Mar, [facility] [address] [id number] [address] [place] [address] Nov, [facility] [address] [id number] [address] [place] [address] May, [facility] [address] [id number] [address] [place] [address] May, [facility] [address] [id number] [address] [place] [address] Apr, [facility] [address] [id number] [address] [place] [address] Mar, [facility] [address] [id number] [address] [place] [address] Mar, IMMUNIZATIONS No Known Immunizations SOCIAL HISTORY Never Assessed REASON FOR VISIT BH f/u PLAN OF CARE Activity Details Follow Up 2 Weeks Reason: F/U VITAL SIGNS MEDICATIONS Unknown Medications RESULTS No Results PROCEDURES Procedure Date Ordered Result Body Site [facility] ESTAB PT Jan 31, 2018 Psychotherapy, patient &/family, 45 minutes, established patient Jan 31, 2018 INSTRUCTIONS MEDICATIONS ADMINISTERED No Known Medications [...]
--- OUTSIDE RECORDS SUMMARY | 2019-06-19 05:28 | XMS REPORT ---
Author Author Sydnie MORTON Organization [facility] Address [address] [place] [address] Care Team Providers Care [employer] Name Role Phone JOHN MORTON Unavailable PROBLEMS Type Condition ICD9-CM Code BSS30-BT Code Onset Dates Condition S tatus SNOMED Code Problem Hormone replacement therapy Z79.890 Ac tive 983586639 Problem Abnormal CT scan, head R93.0 Active 574976990 Problem Sensorineural hearing loss (SNHL) of both ears H90 .3 Active 186707364 Problem History of colon polyps Z86.010 Active 456129182 Problem Bruising, spontaneous R23.3 Active 960059208 Problem Generalized anxiety disorder F41.1 A ctive 29280018 Problem Arthralgia of hip, unspecified laterality M25.559 Active 76142216 Problem Hematuria, unspecified type R31.9 Ac tive 64467725 Problem Imbalance R26.89 Active 352753741 Problem Hammer toe of right foot M20.41 Activ e 315308611 Problem Plantar wart of right foot B07.0 Act mitchell [id number] Problem Sciatica of left side M54.32 Active 31134863 Problem Hyperlipidemia, unspecified hyperlipidemia type E7 8.5 Active 15039101 Problem Hypertension I10 Active 1617463 3 Problem Night sweats R61 Active 4460120 0 Problem Fibromyalgia M79.7 Active 2858714 7 Problem Major depressive disorder, recurrent episode, moderate F33.1 Active 266032519 Problem Acute left-sided low back pain with left-sided sciatica M54.42 Active 664187050 Problem Bladder spasm N32.89 Active 224738 006 Problem Gastritis without bleeding, unspecified chronicity, unspecified gastritis type K29.70 Active 869717981 Problem Bipolar 1 disorder, mixed F31.60 Acti ve 98326009 Problem Grief F43.20 Active 46231056 Problem Other chronic pain G89.29 Active 8 2385207 Problem Allergic rhinitis J30.9 Active 61 337278 Problem Hot flashes due to menopause N95.1 A ctive 450691666 Problem Ataxia R27.0 Active 72408552 Problem Hearing loss, unspecified laterality H91.90 Active 27172613 ALLERGIES No Information ENCOUNTERS Encounter Location Date Diagnosis [facility] [address] [facility] [id number] [address] [place] [id number] Mar, [facility] [address] [facility] [id number] [address] [place] [phone] Mar, [facility] [address] [facility] [id number] [address] [place] [phone] Mar, [facility] [address] [facility] [id number] [address] [place] [id number] Mar, [facility] [address] [facility] [id number] [address] [place] [phone] Mar, [facility] [address] [facility] [id number] [address] [place] [phone] Feb, [facility] [address] [facility] [id number] [address] [place] [id number] 13 Feb, 2018 Bipolar 1 disorder, mixed F3 1.60 [facility] [address] [facility] [id number] [address] [place] [phone] 11 Feb, 2018 Allergic rhinitis J30.9 [facility] [address] [facility] [id number] [address] [place] [id number] 05 Feb, 2018 [facility] [address] [facility] [id number] [address] [place] [phone] Jan, Bipolar 1 disorder, mixed F3 1.60 [facility] [address] [facility] [id number] [address] [place] [id number] Jan, Low back pain M54.5 ; Hyperl ipidemia, unspecified hyperlipidemia type E78.5 and Bipolar 1 disorder, mixed F31.60 [facility] [address] [facility] [id number] [address] [place] [id number] Jan, Bipolar 1 disorder, mixed F3 1.60 [facility] [address] [id number] [address] [place] [phone] Jan, Bipolar 1 disorder, mixed F3 1.60 [facility] [address] [facility] [id number] [address] [place] [id number] Jan, Bipolar 1 disorder, mixed F3 1.60 [facility] [address] [facility] [id number] [address] [place] [phone] Jan, Bipolar 1 disorder, mixed F3 1.60 [facility] [address] [facility] [id number] [address] [place] [phone] Dec, Bipolar 1 disorder, mixed F3 1.60 ; Generalized anxiety disorder F41.1 and 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 [facility] [address] [facility] [id number] [address] [place] [phone] Dec, Other group home (current) dr ug therapy Z79.899 [facility] [address] [id number] [address] [place] [id number] Dec, Bipolar 1 disorder, mixed F3 1.60 [facility] [address] [facility] [id number] [address] [place] [phone] Dec, Bipolar 1 disorder, mixed F3 1.60 [facility] [address] [facility] [id number] [address] [place] [address] Nov, Bipolar 1 disorder, mixed F3 1.60 [facility] [address] [id number] [address] [place] [id number] Nov, Bipolar 1 disorder, mixed F3 1.60 [facility] [address] [facility] [id number] [address] [place] [id number] Nov, Bipolar 1 disorder, mixed F3 1.60 [facility] [address] [facility] [id number] [address] [place] [address] Nov, Allergic rhinitis J30.9 [facility] [address] [place] [id number] [address] [place] [phone] Nov, Allergic rhinitis J30.9 [facility] [address] [address] Nov, [facility] [address] [address] Nov, Bipolar 1 disorder, mixed F3 1.60 [facility] [address] [address] Nov, Fibromyalgia M79.7 and Aller gic rhinitis J30.9 [place] [address] [address] October, Bipolar 1 disorder, mixed F3 1.[address] [facility] [address] [address] October, Acute nasopharyngitis J[address] [facility] [address] [address] October, Bitten or stung by nonvenomo us insect and other nonvenomous arthropods, initial encounter W57.XXXA and Insect bite (nonvenomous) of abdominal wall, initial encounter S30.861A [facility] [address] [address] October, Insect bite (nonvenomous) of abdominal wall, initial encounter S30.861A ; Bitten or stung by nonvenomous insect and other nonvenomous arthropods, initial encounter W57.XXXA ; Allergic rhinitis J30.9 and Low back pain M54.5 [facility] [address] [address] October, Bipolar 1 disorder, mixed F3 1.60 [facility] [address] [place] [id number] [place] [phone] October, [facility] [address] [address] October, [facility] [address] [id number] [address] [place] [id number] October, Bipolar 1 disorder, mixed F3 1.60 [facility] [address] [id number] [address] [place] [id number] Sep, Bipolar 1 disorder, mixed F3 1.60 [facility] [address] [id number] [address] [place] [address] Sep, Other chronic pain G89.29 [facility] [address] [id number] [address] [place] [phone] Sep, [facility] [address] [facility] [id number] [address] [place] [id number] Sep, Bipolar 1 disorder, mixed F3 1.60 [facility] [address] [facility] [id number] [address] [place] [id number] Sep, Allergic rhinitis J30.9 and Sciatica of left side M54.32 [facility] [address] [facility] [id number] [address] [place] [id number] Sep, Bipolar 1 disorder, mixed F3 1.60 [facility] [address] [facility] [id number] [address] [place] [id number] Sep, Bipolar 1 disorder, mixed F3 1.60 and Generalized anxiety disorder F41.1 [facility] [address] [facility] [id number] [address] [place] [phone] Aug, [facility] [address] [facility] [id number] [address] [place] [phone] Aug, Bipolar 1 disorder, mixed F3 1.60 [facility] [address] [facility] [id number] [address] [place] [id number] Aug, Bipolar 1 disorder, mixed F3 1.60 [facility] [address] [facility] [id number] [address] [place] [id number] Aug, [facility] [address] [facility] [id number] [address] [place] [phone] Aug, Generalized anxiety disorder F41.1 [facility] [address] [facility] [id number] [address] [place] [id number] Aug, Bipolar 1 disorder, mixed F3 1.60 [facility] [address] [facility] [id number] [address] [place] [address] Aug, Plantar wart of right foot B 07.0 [facility] [address] [facility] [id number] [address] [place] [address] Aug, Bipolar 1 disorder, mixed F3 1.60 [place] [address] [address] Jul, Bipolar 1 disorder, mixed F3 1.60 [place] [address] [place] [id number] [address] [place] [id number] Jul, [facility] [address] [address] Jul, Bipolar 1 disorder, mixed F3 1.60 [facility] [address] [place] [id number] [address] [place] [id number] Jul, Generalized anxiety disorder F41.1 [facility] [address] [place] [id number] [address] [place] [id number] Jul, Bipolar 1 disorder, mixed F3 1.60 [place] [address] [place] [id number] [address] [place] [id number] Jul, Acute left-sided low back pa in with left-sided sciatica M54.42 [facility] [address] [facility] [id number] [address] [place] [address] Jul, Coccydynia M53.3 [facility] [address] [facility] [id number] [address] [place] [phone] Jun, Bipolar 1 disorder, mixed F3 1.60 [facility] [address] [place] [id number] [address] [place] [id number] Jun, Acute nasopharyngitis J00 [facility] [address] [place] [id number] [place] [phone] Jun, Bipolar 1 disorder, mixed F3 1.60 [facility] [address] [place] [id number] [address] [place] [id number] Jun, Fibromyalgia M79.7 [facility] [address] [address] Jun, Bipolar 1 disorder, mixed F3 1.60 [place] [address] [address] Jun, Fibromyalgia M79.7 and Bipol ar 1 disorder, mixed F31.60 [place] [address] [place] [id number] [place] [address] May, Bipolar 1 disorder, mixed F3 1.60 ; Generalized anxiety disorder F41.1 and 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 [address] [address] 14 May, 2017 Cough R05 and Body aches R52 [facility] [address] [address] 10 May, 2017 Bladder spasm N32.89 and Acu te cystitis without hematuria N30.00 [place] [address] [address] May, Bipolar 1 disorder, mixed F3 1.60 [place] [address] [address] Apr, [facility] [address] [address] Apr, Major depressive disorder, r ecurrent episode, moderate F33.1 and Encounter for immunization Z23 [facility] [address] [address] Apr, Bipolar 1 disorder, mixed F3 1.60 [facility] [address] [place] [id number] [place] [address] Apr, Bipolar 1 disorder, mixed F3 1.60 [facility] [address] [place] [address] Apr, Bipolar 1 disorder, mixed F3 1.60 [facility] [address] [address] Apr, Yeast vaginitis B37.3 [facility] [address] [place] [address] Apr, Bipolar 1 disorder, mixed F3 1.60 [facility] [address] [address] Apr, Cellulitis L03.[address] for immunization Z23 [place] [address] [address] Apr, Bipolar 1 disorder, mixed F3 1.60 [facility] [address] [address] Mar, Bipolar 1 disorder, mixed F3 1.60 [place] [address] [address] Mar, Bipolar 1 disorder, mixed F3 1.60 [facility] [address] [address] Mar, Imbalance R26.89 and Encount er for immunization Z23 [facility] [address] [place] [id number] [place] [address] Mar, Generalized anxiety disorder F41.1 [place] [address] [address] Mar, Bipolar 1 disorder, mixed F3 1.60 [place] [id number] [place] [address] Mar, Generalized anxiety disorder F41.1 [place] [address] [place] [id number] Mar, Bipolar 1 disorder, mixed F3 1.60 [place] [address] [address] Mar, Bipolar 1 disorder, mixed F3 1.60 [place] [address] [place] [id number] [place] [address] Feb, Bipolar 1 disorder, mixed F3 1.60 [place] [address] [place] [id number] Feb, Bipolar 1 disorder, mixed F3 1.60 and Generalized anxiety disorder F41.1 [place] [address] [address] Feb, Gastritis without bleeding, unspecified chronicity, unspecified gastritis type K29.70 ; Hammer toe of right foot M20.41 and Other viral warts B07.8 [place] [address] [address] Feb, Bipolar 1 disorder, mixed F3 1.60 [place] [address] [address] Feb, Bipolar 1 disorder, mixed F3 1.60 [place] [address] [place] [id number] [address] [place] [address] Feb, Bipolar 1 disorder, mixed F3 1.60 [place] [address] [address] Jan, Encounter for screening mamm ogram for breast cancer Z12.31 ; Other viral warts B07.8 and Allergic rhinitis J30.9 [place] [address] [address] Jan, Bipolar 1 disorder, mixed F3 1.60 [facility] [address] [facility] [id number] [address] [place] [phone] Jan, Bipolar 1 disorder, mixed F3 1.60 [facility] [address] [facility] [id number] [address] [place] [id number] Jan, [facility] [address] [facility] [id number] [address] [place] [phone] Jan, Bipolar 1 disorder, mixed F3 1.60 [facility] [address] [facility] [id number] [address] [place] [address] Jan, Bipolar 1 disorder, mixed F3 1.60 [place] [address] [place] [id number] [address] [place] [id number] Jan, Allergic rhinitis J30.9 ; He maturia R31.9 and Colon cancer screening Z12.11 [facility] [address] [place] [id number] [address] [place] [address] Dec, Bipolar 1 disorder, mixed F3 1.60 [facility] [address] [facility] [id number] [address] [place] [address] Dec, Bipolar 1 disorder, mixed F3 1.60 ; Generalized anxiety disorder F41.1 and 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 [facility] [address] [place] [id number] [address] [place] [address] Dec, Bipolar 1 disorder, mixed F3 1.60 [facility] [address] [facility] [id number] [address] [place] [address] Dec, Bipolar 1 disorder, mixed F3 1.60 [place] [id number] [place] [id number] [place] [address] Dec, Bipolar 1 disorder, mixed F3 1.60 [facility] [address] [facility] [id number] [address] [place] [address] Dec, Low back pain M54.5 and Recu rrent urinary tract infection N39.0 [facility] [address] [id number] [address] [place] [address] Nov, Bipolar 1 disorder, mixed F3 1.60 [facility] [address] [id number] [address] [place] [id number] Nov, Bipolar 1 disorder, mixed F3 1.60 [facility] [address] [facility] [id number] [address] [place] [address] Nov, Bipolar 1 disorder, mixed F3 1.60 [facility] [address] [id number] [address] [place] [id number] Nov, Bipolar 1 disorder, mixed F3 1.60 [facility] [address] [facility] [id number] [address] [place] [address] Nov, [facility] [address] [facility] [id number] [address] [place] [address] Nov, Anesthesia of skin R20.0 ; F requent UTI N39.0 ; Tobacco abuse Z72.0 and Colon cancer screening Z12.11 [facility] [address] [facility] [id number] [address] [place] [address] Nov, Bipolar 1 disorder, mixed F3 1.60 [facility] [address] [facility] [id number] [address] [place] [id number] October, Bipolar 1 disorder, mixed F3 1.60 [facility] [address] [facility] [id number] [address] [place] [address] October, Bipolar 1 disorder, mixed F3 1.60 [facility] [address] [facility] [id number] [address] [place] [id number] October, Bipolar 1 disorder, mixed F3 1.60 [facility] [address] [facility] [id number] [address] [place] [address] October, Bipolar 1 disorder, mixed F3 1.60 [facility] [address] [facility] [id number] [address] [place] [address] October, Bipolar 1 disorder, mixed F3 1.60 [place] [id number] [address] October, Cervicalgia M54.2 and Bipola r 1 disorder, mixed F31.60 [place] [address] [place] [id number] [address] [place] [address] October, Hypertension I10 ; Hyperlipi demia, unspecified hyperlipidemia type E78.5 and Family history of thyroid disease Z83.49 [place] [address] [address] October, [place] [address] [place] [address] October, Hypertension I10 ; Hyperlipi demia, unspecified hyperlipidemia type E78.5 and Family history of thyroid problem Z83.49 [place] [address] [address] October, Bipolar 1 disorder, mixed F3 1.60 [place] [address] [address] Sep, Bipolar 1 disorder, mixed F3 1.60 [place] [address] [address] Sep, Bipolar 1 disorder, mixed F3 1.60 [place] [address] [address] Sep, Bipolar 1 disorder, mixed F3 1.60 [place] [address] [address] Sep, History of colon polyps Z86. 010 and Hematochezia K92.1 [place] [address] [address] Sep, Major depressive disorder, r ecurrent episode, moderate F33.1 [place] [address] [address] Sep, Bipolar 1 disorder, mixed F3 1.60 [facility] [address] [facility] [id number] [address] [place] [address] Aug, Hot flashes due to menopause N95.1 [facility] [address] [facility] [id number] [address] [place] [address] Aug, Bipolar 1 disorder, mixed F3 1.60 [facility] [address] [place] [id number] [address] [place] [address] Aug, [facility] [address] [facility] [id number] [address] [place] [address] Aug, Bipolar 1 disorder, mixed F3 1.60 [facility] [address] [facility] [id number] [address] [place] [address] Aug, Bipolar 1 disorder, mixed F3 1.60 [facility] [address] [place] [id number] [address] [place] [address] Aug, Hot flashes due to menopause N95.1 ; Cervicalgia M54.2 and Ataxia R27.0 [facility] [address] [facility] [id number] [address] [place] [address] Jul, Bipolar 1 disorder, mixed F3 1.60 [facility] [address] [facility] [id number] [address] [place] [address] Jul, Bipolar 1 disorder, mixed F3 1.60 [facility] [address] [facility] [id number] [address] [place] [address] Jul, Bipolar 1 disorder, mixed F3 1.60 [facility] [address] [facility] [id number] [address] [place] [id number] Jul, Bipolar 1 disorder, mixed F3 1.60 [facility] [address] [facility] [id number] [address] [place] [id number] Jul, Bipolar 1 disorder, mixed F3 1.60 [facility] [address] [place] [id number] [address] [place] [address] Jul, Cervicalgia M54.2 ; Tremor R 25.1 ; Hearing abnormally acute, unspecified laterality H93.239 ; Alopecia L65.9 ; Encounter for immunization Z23 and Family history of thyroid disease Z83.49 [place] [address] [place] [address] Jul, Bipolar 1 disorder, mixed F3 1.60 [place] [address] Jun, [place] [address] Jun, Hearing disorder, unspecifie d laterality H93.299 [place] [address] Jun, Bipolar 1 disorder, mixed F3 1.60 [place] [address] [address] Jun, Bipolar 1 disorder, mixed F3 1.60 [place] [address] [address] Jun, Allergic rhinitis J30.9 [place] [address] [place] [address] Jun, Bipolar 1 disorder, mixed F3 1.60 [place] [address] [address] Jun, Bipolar 1 disorder, mixed F3 1.60 [place] [address] [address] Jun, Allergic rhinitis J30.9 [place] [address] [address] Jun, Allergic rhinitis J30.9 [place] [address] [address] Jun, Bipolar 1 disorder, mixed F3 1.60 [place] [address] [address] May, Bipolar 1 disorder, mixed F3 1.60 [facility] [address] [facility] [id number] [address] [place] [id number] May, Bipolar 1 disorder, mixed F3 1.60 [facility] [address] [facility] [id number] [address] [place] [id number] May, [facility] [address] [facility] [id number] [address] [place] [id number] May, Bipolar 1 disorder, mixed F3 1.60 [facility] [address] [facility] [id number] [address] [place] [id number] May, Bipolar 1 disorder, mixed F3 1.60 [facility] [address] [facility] [id number] [address] [place] [id number] May, [facility] [address] [place] [id number] [address] [place] [id number] May, [facility] [address] [facility] [id number] [address] [place] [id number] May, [facility] [address] [place] [id number] [address] [place] [phone] May, Abdominal pain, unspecified location R10.9 [facility] [address] [place] [id number] [address] [place] [id number] May, [facility] [address] [facility] [id number] [address] [place] [id number] Apr, Hematuria R31.9 ; Ataxia R27 .0 and Hearing loss, unspecified laterality H91.90 [facility] [address] [facility] [id number] [address] [place] [address] Apr, Bipolar 1 disorder, mixed F3 1.[address] [facility] [address] [facility] [id number] [address] [place] [address] Apr, Acute effusion of both middl e ears H65.193 [facility] [address] [place] [address] Apr, Hematuria R31.9 and Pyelonep hritis N12 [place] [address] [address] Apr, [place] [address] [place] [id number] [place] [address] Mar, Bipolar 1 disorder, mixed F3 1.60 [place] [address] [address] Mar, [place] [address] [address] Mar, Bipolar 1 disorder, mixed F3 1.60 [place] [address] [address] Mar, Bipolar 1 disorder, mixed F3 1.60 [place] [address] [address] Mar, Encounter for immunization Z 23 and Gastritis without bleeding, unspecified chronicity, unspecified gastritis type K29.70 [place] [address] [address] Mar, Bipolar 1 disorder, mixed F3 1.60 and Grief F43.20 [place] [address] [address] Mar, Gastritis without bleeding, unspecified chronicity, unspecified gastritis type K29.70 [place] [address] [place] [id number] [address] [place] [address] Mar, Bipolar 1 disorder, mixed F3 1.60 [place] [address] [address] Mar, Gastritis without bleeding, unspecified chronicity, unspecified gastritis type K29.70 [place] [address] [place] [id number] [address] [place] [address] Mar, [place] [address] [facility] [id number] [address] [place] [address] 27 Feb, 2016 Bipolar 1 disorder, mixed F3 1.60 [facility] [address] [place] [address] Feb, Bipolar 1 disorder, mixed F3 1.60 and Grief F43.20 [facility] [address] [place] [address] 22 Feb, 2016 Gastritis without bleeding, unspecified chronicity, unspecified gastritis type K29.70 [facility] [address] [place] [id number] [address] [place] [address] 14 Feb, 2016 Bipolar 1 disorder, mixed F3 1.[address] [facility] [address] [place] [id number] [address] [place] [address] 09 Feb, 2016 Gastroesophageal reflux dise ase, esophagitis presence not specified K21.9 [facility] [address] [place] [id number] [address] [place] [address] Jan, Bipolar 1 disorder, mixed F3 1.60 [facility] [address] [place] [id number] [address] [place] [address] Jan, Bipolar 1 disorder, mixed F3 1.60 and Unsteady gait R26.81 [place] [address] [place] [id number] [address] [place] [address] Jan, Bipolar 1 disorder, mixed F3 1.60 [facility] [address] [place] [id number] [address] [place] [address] Jan, Bipolar 1 disorder, mixed F3 1.60 and Other group home (current) drug therapy Z79.899 [place] [address] [place] [id number] [address] [place], [place] [address] Jan, Bipolar 1 disorder, mixed F3 1.60 [place] [address] [place] [id number] [address] [place] [address] Jan, Bipolar 1 disorder, mixed F3 1.60 [place] [address] [place] [id number] [address] [place] [address] Jan, Bipolar 1 disorder, mixed F3 1.60 ; Grief F43.20 and Other group home (current) drug therapy Z79.899 [place] [id number] [facility] [id number] [address] [place] [address] Jan, Bipolar 1 disorder, mixed F3 1.60 [place] [address] [facility] [id number] [address] [place] [address] Dec, [place] [address] [facility] [id number] [address] [place] [address] Dec, Bipolar 1 disorder, mixed F3 1.60 ; Vitamin D deficiency, unspecified E55.9 ; H/O allergic rhinitis Z87.09 ; Other chronic pain G89.29 and Dorsalgia, unspecified M54.9 [place] [address] [place] [id number] [address] [place] [address] Dec, [place] [address] [facility] [id number] [address] [place] [address] Dec, Bipolar 1 disorder, mixed F3 1.60 [place] [address] [place] [id number] [address] [place] [address] Dec, Major depressive disorder, r ecurrent episode, moderate F33.1 [place] [address] [facility] [id number] [address] [place] [address] Dec, Major depressive disorder, r ecurrent episode, moderate F33.1 [place] [address] [facility] [id number] [address] [place] [address] Nov, [place] [address] [facility] [id number] [address] [place] [address] Nov, Bipolar 1 disorder, mixed F3 1.60 [place] [address] [facility] [id number] [address] [place] [address] Nov, Major depressive disorder, r ecurrent episode, moderate F33.1 [place] [address] [facility] [id number] [address] [place] [address] Nov, Cervicalgia M54.2 ; Arthralg ia of hip, unspecified laterality M25.559 ; Allergic rhinitis J30.9 and Hormone replacement therapy Z79.[address] [facility] [address] [facility] [id number] [address] [place] [address] 13 Nov, 2015 Other seasonal allergic rhin itis J30.2 [facility] [address] [facility] [id number] [address] [place] [address] October, Major depressive disorder, r ecurrent episode, moderate F33.1 [place] [address] [place] [id number] [address] [place] [address] October, Major depressive disorder, r ecurrent episode, moderate F33.1 and Arthralgia of hip, unspecified laterality M25.559 [place] [address] [place] [address] October, Grief F43.20 ; Hypertension I10 ; Hyperlipidemia, unspecified hyperlipidemia type E78.5 ; Other chronic pain G89.29 and Allergic rhinitis, unspecified allergic rhinitis type J30.9 [place] [address] [facility] [id number] [address] [place] [address] October, Major depressive disorder, r ecurrent episode, moderate F33.1 [place] [address] [facility] [id number] [address] [place] [address] Sep, Major depressive disorder, r ecurrent episode, moderate F33.1 [place] [address] [facility] [id number] [address] [place] [address] Sep, [place] [address] [place] [id number] [address] [place] [address] Sep, Major depressive disorder, r ecurrent episode, moderate F33.1 [place] [address] [place] [id number] [address] [place] [address] Sep, Grief F43.20 [place] [address] [place] [id number] [address] [place] [address] Aug, Major depressive disorder, r ecurrent episode, moderate F33.1 [place] [address] [facility] [id number] [address] [place] [address] Aug, Bipolar 1 disorder, mixed F3 1.60 [place] [address] [place] [id number] [address] [place] [address] Aug, Allergic rhinitis J30.9 ; Ce rvicalgia M54.2 and Low back pain M54.5 [place] [address] [place] [id number] [address] [place] [address] Aug, Major depressive disorder, r ecurrent episode, moderate F33.[address] [facility] [address] [facility] [id number] [address] [place] [address] Aug, Sinusitis J32.9 and Tobacco 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 [place] [address] [place] [address] Aug, [place] [address] [place] [address] Aug, Depressive disorder, not els ewhere classified F32.9 ; Hormone replacement therapy Z79.[address] scan, head R93.0 [place] [address] [place] [address] Aug, Major depressive disorder, r ecurrent episode, moderate F33.1 [place] [id number] [place] [id number] [address] [place] [address] Jul, Major depressive disorder, r ecurrent episode, moderate F33.1 [place] [address] [place] [address] Jul, Abdominal pain R10.9 and Hyp ertension I10 [place] [address] [place] [id number] [address] [place] [address] Jul, [place] [address] [place] [id number] [address] [place] [address] 05 Jul, 2015 Major depressive disorder, r ecurrent episode, moderate F33.1 [facility] [address] [facility] [id number] [address] [place] [address] 04 Jul, 2015 [facility] [address] [facility] [id number] [address] [place] [address] Jul, [facility] [address] [id number] [address] [place] [address] Jun, [facility] [address] [facility] [id number] [address] [place] [address] Jun, Depressive disorder, not els ewhere classified F32.9 [facility] [address] [facility] [id number] [address] [place] [address] Jun, [place] [address] [place] [id number] [address] [place] [address] Jun, [place] [address] [facility] [id number] [address] [place] [address] Jun, Arthralgia of hip, unspecifi ed laterality M25.559 ; Bruising, spontaneous R23.3 and Night sweats R61 [place] [id number] [facility] [id number] [address] [place] [address] Jun, [place] [address] [facility] [id number] [address] [place] [address] Jun, [place] [address] [facility] [id number] [address] [place] [address] May, [place] [address] [place] [id number] [address] [place] [address] 15 May, 2015 Myalgia M79.1 and Screening, lipid Z13.220 [facility] [address] [facility] [id number] [address] [place] [address] 10 Apr, 2015 Status post cervical spinal fusion Z98.1 ; Fibromyalgia M79.7 and Unsteady gait R26.81 [facility] [address] [id number] [address] [place] [address] Nov, [facility] [address] [id number] [address] [place] [address] Nov, [facility] [address] [id number] [address] [place] [address] October, [facility] [address] [id number] [address] [place] [address] October, [facility] [address] [id number] [address] [place] [address] October, [facility] [address] [id number] [address] [place] [address] October, [facility] [address] [facility] [id number] [address] [place] [address] October, [facility] [address] [facility] [id number] [address] [place] [address] October, Dysuria 788.1 ; Nausea 787.0 2 and Urinary tract infection 599.0 [facility] [address] [id number] [address] [place] [address] Sep, [facility] [address] [facility] [id number] [address] [place] [address] Sep, [facility] [address] [id number] [address] [place] [address] Aug, [facility] [address] [id number] [address] [place] [address] Aug, [facility] [address] [id number] [address] [place] [address] Aug, [facility] [address] [id number] [address] [place] [address] Aug, [facility] [address] [id number] [address] [place] [address] Aug, 2014 [facility] [address] [id number] [facility] [place] [address] 19 Aug, 2014 [facility] [address] [id number] [address] [place] [address], [place] [address] 19 Aug, 2014 [facility] [address] [id number] [address] [place] [address], [place] [address] 19 Aug, 2014 [facility] [address] [id number] [address] [place] [address], [place] [address] 19 Aug, 2014 [facility] [address] [id number] [address] [place] [address], [place] [address] 18 Aug, 2014 [facility] [address] [id number] [address] [place] [address], [place] [address] 18 Aug, 2014 [facility] [address] [id number] [address] [place] [address], [place] [address] 13 Aug, 2014 [facility] [address] [id number] [address] [place] [address], [place] [address] 13 Aug, 2014 [facility] [address] [id number] [address] [place] [address], [place] [address] 11 Aug, 2014 [facility] [address] [id number] [address] [place] [address], [place] [address] 11 Aug, 2014 [facility] [address] [id number] [address] [place] [address], [place] [address] 06 Aug, 2014 [facility] [address] [id number] [address] [place] [address], [place] [address] 06 Aug, 2014 [facility] [address] [id number] [address] [place] [address], [place] [address] 05 Aug, 2014 [facility] [address] [id number] [address] [place] [address], [place] [address] 05 Aug, 2014 [facility] [address] [id number] [address] [place] [address], [place] [address] 04 Aug, 2014 [facility] [address] [id number] [address] [place] [address] Aug, [facility] [address] [id number] [address] [place] [address], [place] [address] Aug, [facility] [address] [id number] [address] [place] [address], [place] [address] Jul, 2014 [facility] [address] [id number] [address] [place] [address], [place] [address] Jul, 2014 [facility] [address] [id number] [address] [place] [address], [place] [address] Jul, 2014 [facility] [address] [id number] [address] [place] [address], [place] [address] Jul, 2014 [facility] [address] [id number] [address] [place] [address], [place] [address] Jul, 2014 [facility] [address] [id number] [address] [place] [address], [place] [address] Jul, 2014 [facility] [address] [id number] [address] [place] [address], [place] [address] Jul, 2014 [facility] [address] [id number] [address] [place] [address], [place] [address] Jul, 2014 [facility] [address] [id number] [address] [place] [address], [place] [address] Jul, 2014 [facility] [address] [id number] [address] [place] [address] Jul, 2014 [facility] [address] [id number] [address] [place] [address], [place] [address] Jul, 2014 [facility] [address] [id number] [address] [place] [address], [place] [address] Jul, 2014 [facility] [address] [id number] [address] [place] [address] Jul, 2014 [facility] [address] [id number] [address] [place] [address] Jul, [facility] [address] [id number] [address] [place] [address], [place] [address] Jun, [facility] [address] [id number] [address] [place] [address], [place] [address] Jun, [facility] [address] [id number] [address] [place] [address], [place] [address] Jun, [facility] [address] [id number] [address] [place] [address], [place] [address] Jun, [facility] [address] [id number] [address] [place] [address], [place] [address] Jun, [facility] [address] [id number] [address] [place] [address], [place] [address] Jun, [facility] [address] [id number] [address] [place] [address], [place] [address] May, [facility] [address] [id number] [address] [place] [address], [place] [address] May, [facility] [address] [id number] [address] [place] [address], [place] [address] May, [facility] [address] [id number] [address] [place] [address], [place] [address] May, [facility] [address] [id number] [address] [place] [address], [place] [address] May, [facility] [address] [id number] [address] [place] [address], [place] [address] May, [facility] [address] [id number] [address] [place] [address], [place] [address] Apr, [facility] [address] [id number] [address] [place] [address], [place] [address] Apr, [facility] [address] [id number] [address] [place] [address], [place] [address] Apr, [facility] [address] [id number] [address] [place] [address], [place] [address] Apr, [facility] [address] [id number] [address] [place] [address], [place] [address] Apr, [facility] [place] [facility] [address] [id number] [address] [place] [address], [place] [address] Apr, [facility] [address] [id number] [address] [place] [address], [place] [address] Mar, [facility] [address] [id number] [address] [place] [address], [place] [address] Mar, [facility] [address] [id number] [address] [place] [address], [place] [address] Mar, [facility] [address] [id number] [address] [place] [address], [place] [address] Mar, [facility] [address] [id number] [address] [place] [address], [place] [address] Mar, [facility] [address] [id number] [address] [place] [address], [place] [address] Mar, [facility] [place] [facility] [address] [id number] [address] [place] [address], [place] [address] Mar, [facility] [address] [id number] [address] [place] [address], [place] [address] Mar, [facility] [address] [id number] [address] [place] [address], [place] [address] Mar, [facility] [address] [id number] [address] [place] [address], [place] [address] Mar, [facility] [address] [id number] [address] [place] [address], [place] [address] Mar, [facility] [address] [id number] [address] [place] [address], [place] [address] Mar, [facility] [address] [id number] [address] [place] [address], [place] [address] 30 Feb, 2014 [facility] [address] [id number] [facility] [place] [address] 29 Feb, 2014 [facility] [address] [id number] [facility] [address] 29 Feb, 2014 [facility] [address] [id number] [facility] [place] [address] Feb, [facility] [address] [id number] [address] [place] [address], [place] [address] Feb, [facility] [address] [id number] [address] [place] [address], [place] [address] Feb, [facility] [address] [id number] [address] [place] [address], [place] [address] Feb, [facility] [address] [id number] [address] [place] [address], [place] [address] Jan, [facility] [address] [id number] [address] [place] [address], [place] [address] Jan, [facility] [address] [id number] [address] [place] [address], [place] [address] Jan, [facility] [address] [id number] [address] [place] [address], [place] [address] Dec, [facility] [address] [id number] [address] [place] [address], [place] [address] Dec, [facility] [address] [id number] [address] [place] [address], [place] [address] Dec, [facility] [address] [id number] [address] [place] [address], [place] [address] Dec, [facility] [address] [id number] [address] [place] [address], [place] [address] Sep, [facility] [address] [id number] [address] [place] [address], [place] [address] Sep, [facility] [address] [id number] [address] [place] [address], [place] [address] Sep, [facility] [address] [id number] [address] [place] [address], [place] [address] Sep, [facility] [address] [id number] [address] [place] [address], [place] [address] Sep, [facility] [address] [id number] [address] [place] [address], [place] [address] Sep, [facility] [address] [id number] [address] [place] [address], [place] [address] Sep, [facility] [address] [id number] [address] [place] [address], [place] [address] Sep, [facility] [address] [id number] [address] [place] [address], [place] [address] Aug, [facility] [address] [id number] [address] [place] [address], [place] [address] Aug, [facility] [address] [id number] [address] [place] [address], [place] [address] May, [facility] [address] [id number] [address] [place] [address], [place] [address] May, [facility] [address] [id number] [address] [place] [address], [place] [address] Apr, [facility] [address] [id number] [address] [place] [address], [place] [address] Apr, [facility] [address] [id number] [address] [place] [address], [place] [address] Apr, [facility] [address] [id number] [address] [place] [address], [place] [address] Apr, [facility] [address] [id number] [address] [place] [address], [place] [address] Apr, [facility] [address] [id number] [address] [place] [address], [place] [address] Apr, [facility] [address] [id number] [address] [place] [address], [place] [address] 18 May, 2012 [facility] [address] [id number] [address] [place] [address], [place] [address] 18 May, 2012 [facility] [address] [id number] [address] [place] [address], [place] [address] 15 May, 2012 [facility] [address] [id number] [address] [place] [address], [place] [address] 15 May, 2012 [facility] [address] [id number] [address] [place] [address], [place] [address] 13 May, 2012 [facility] [address] [id number] [address] [place] [address], [place] [address] 13 May, 2012 [facility] [address] [id number] [address] [place] [address], [place] [address] 13 Apr, 2012 [facility] [address] [id number] [address] [place] [address], [place] [address] 13 Apr, 2012 [facility] [address] [id number] [address] [place] [address], [place] [id number] Apr, [facility] [address] [id number] [address] [place] [address], [place] [id number] Apr, [facility] [address] [id number] [address] [place] [address], [place] [address] Apr, [facility] [address] [id number] [address] [place] [address], [place] [address] Apr, [facility] [address] [id number] [address] [place] [address], [place] [address] Apr, [facility] [address] [id number] [address] [place] [address], [place] [address] Apr, [facility] [address] [id number] [address] [place] [address], [place] [id number] 07 Apr, 2012 [facility] [address] [id number] [address] [address] Apr, [facility] [address] [id number] [address] [place] [address], [place] [address] Mar, [facility] [address] [id number] [address] [place] [address], [place] [address] Mar, [facility] [address] [id number] [address] [place] [address], [place] [address] Mar, [facility] [address] [id number] [address] [place] [phone] Mar, [facility] [address] [id number] [address] [place] [address], [place] [address] Mar, [facility] [address] [id number] [address] [place] [phone] Mar, [facility] [address] [id number] [address] [place] [address], [place] [address] Mar, [facility] [address] [id number] [address] [place] [phone] Mar, [facility] [address] [id number] [address] [place] [address], [place] [address] Mar, [facility] [address] [id number] [address] [place] [phone] Feb, [facility] [address] [id number] [address] [place] [id number] 16 Feb, 2012 [facility] [address] [id number] [address] [place] [phone] Feb, [facility] [address] [id number] [address] [place] [address], [place] [address] Jan, [facility] [address] [id number] [address] [place] [phone] Jan, [facility] [address] [id number] [address] [place] [phone] Jan, [facility] [address] [id number] [address] [place] [address], [place] [address] 18 Jan, 2012 [facility] [address] [id number] [address] [place] [address], [place] [address] Jan, [facility] [address] [id number] [address] [place] [address], [place] [address] Jan, [facility] [address] [id number] [address] [place] [address], [place] [address] 16 Jan, 2012 [facility] [address] [id number] [address] [place] [address], [place] [address] Jan, [facility] [address] [id number] [address] [place] [address], [place] [address] Jan, [facility] [address] [id number] [address] [place] [address], [place] [address] Jan, [facility] [address] [id number] [address] [place] [address], [place] [address] Dec, [facility] [address] [id number] [address] [place] [address], [place] [address] Dec, [facility] [address] [id number] [address] [place] [address], [place] [address] Dec, [facility] [address] [id number] [address] [place] [address], [place] [address] Dec, [facility] [address] [id number] [address] [place] [address], [place] [address] Nov, [facility] [address] [id number] [address] [place] [address], [place] [address] Nov, [facility] [address] [id number] [address] [place] [address], [place] [address] Nov, [facility] [address] [id number] [address] [place] [address], [place] [address] October, [facility] [address] [id number] [address] [place] [address], [place] [address] October, [facility] [address] [id number] [address] [place] [phone] October, [facility] [address] [id number] [address] [place] [id number] October, [facility] [address] [id number] [address] [place] [phone] October, [facility] [address] [id number] [address] [place] [phone] October, [facility] [address] [id number] [address] [place] [phone] Aug, [facility] [address] [id number] [address] [place] [phone] Mar, [facility] [address] [id number] [address] [place] [id number] Nov, [facility] [address] [id number] [address] [place] [phone] May, [facility] [address] [id number] [address] [place] [phone] May, [facility] [address] [id number] [address] [place] [id number] Apr, [facility] [address] [id number] [address] [place] [phone] Mar, [facility] [address] [id number] [address] [place] [phone] Mar, IMMUNIZATIONS No Known Immunizations SOCIAL HISTORY Never Assessed REASON FOR VISIT BH f/u PLAN OF CARE Activity Details Follow Up 1 Week Reason:BH F/U VITAL SIGNS MEDICATIONS Unknown Medications RESULTS No Results PROCEDURES Procedure Date Ordered Result Body Site [facility] VISIT MENTAL HEALTH ESTAB PT Jan 17, 2018 Psychotherapy, patient &/family, 45 minutes, established patient Jan 17, 2018 INSTRUCTIONS MEDICATIONS ADMINISTERED No Known Medications [...]
--- OUTSIDE RECORDS SUMMARY | 2019-06-19 05:29 | XMS REPORT ---
Author Author Sydnie SQUIRES Organization [facility] Address [address] [place] [address] Care Team Providers Care Medical Associate Name Role Phone MIRIAN SQUIRES Unavailable PROBLEMS Type Condition ICD9-CM Code FNF63-YH Code Onset Dates Condition S tatus SNOMED Code Problem Hormone replacement therapy Z79.890 Ac tive 414160765 Problem Abnormal CT scan, head R93.0 Active 145385918 Problem Sensorineural hearing loss (SNHL) of both ears H90 .3 Active 532741686 Problem History of colon polyps Z86.010 Active 534266283 Problem Bruising, spontaneous R23.3 Active 851146330 Problem Generalized anxiety disorder F41.1 A ctive 97014354 Problem Arthralgia of hip, unspecified laterality M25.559 Active 16022242 Problem Hematuria, unspecified type R31.9 Ac tive 18368966 Problem Imbalance R26.89 Active 428115183 Problem Hammer toe of right foot M20.41 Activ e 402406449 Problem Plantar wart of right foot B07.0 Act mitchell [id number] Problem Sciatica of left side M54.32 Active 71556808 Problem Hyperlipidemia, unspecified hyperlipidemia type E7 8.5 Active 91313888 Problem Hypertension I10 Active 2501044 3 Problem Night sweats R61 Active 7145962 0 Problem Fibromyalgia M79.7 Active 9588232 7 Problem Major depressive disorder, recurrent episode, moderate F33.1 Active 885769021 Problem Acute left-sided low back pain with left-sided sciatica M54.42 Active 466718250 Problem Bladder spasm N32.89 Active 911316 006 Problem Gastritis without bleeding, unspecified chronicity, unspecified gastritis type K29.70 Active 233446024 Problem Bipolar 1 disorder, mixed F31.60 Acti ve 66100097 Problem Grief F43.20 Active 14205156 Problem Other chronic pain G89.29 Active 8 8758952 Problem Allergic rhinitis J30.9 Active 61 922018 Problem Hot flashes due to menopause N95.1 A ctive 394637065 Problem Ataxia R27.0 Active 46046351 Problem Hearing loss, unspecified laterality H91.90 Active 21830763 ALLERGIES Substance Reaction Event Type Date Status Morphine Sulfate Unknown Drug Allergy Dec, Active Iodine Unknown Drug Allergy Dec, Active Lyrica 75 Mg Capsule "felt weird" Non Drug Allergy Dec, Act mitchell ENCOUNTERS Encounter Location Date Diagnosis [facility] [address] [place] [id number] [place] [address] Mar, [facility] [address] [facility] [id number] [address] [place] [address] Mar, [facility] [address] [place] [id number] [place] [address] Feb, [facility] [address] [place] [id number] [place] [address] Feb, [facility] [address] [place] [id number] [place] [address] Feb, [facility] [address] [place] [id number] [place] [address] Jan, Bipolar 1 disorder, mixed F3 1.60 [facility] [address] [place] [id number] [place] [address] Jan, Low back pain M54.5 ; Hyperl ipidemia, unspecified hyperlipidemia type E78.5 and Bipolar 1 disorder, mixed F31.60 [facility] [address] [facility] [id number] [address] [place] [address] Jan, Bipolar 1 disorder, mixed F3 1.60 [facility] [address] [facility] [id number] [address] [place] [address] Jan, Bipolar 1 disorder, mixed F3 1.60 [facility] [address] [place] [place] [id number] [place] [address] Jan, Bipolar 1 disorder, mixed F3 1.60 [place] [id number] [facility] [id number] [address] [place] [address] Jan, Bipolar 1 disorder, mixed F3 1.60 [facility] [address] [facility] [id number] [address] [place] [address] Dec, Bipolar 1 disorder, mixed F3 1.60 ; Generalized anxiety disorder F41.1 and 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 [address] [facility] [id number] [address] [place] [address] Dec, Bipolar 1 disorder, mixed F3 1.60 [facility] [address] [place] [id number] [place] [address] Dec, Bipolar 1 disorder, mixed F3 1.60 [facility] [address] [facility] [id number] [address] [place] [address] Nov, Bipolar 1 disorder, mixed F3 1.60 [facility] [address] [facility] [id number] [address] [place] [address] Nov, Bipolar 1 disorder, mixed F3 1.60 [facility] [address] [place] [place] [id number] [place] [address] Nov, Bipolar 1 disorder, mixed F3 1.60 [facility] [address] [facility] [id number] [address] [place] [address] Nov, Allergic rhinitis J30.9 [facility] [address] [facility] [id number] [address] [place] [address] Nov, Allergic rhinitis J30.9 [facility] [address] [facility] [id number] [address] [place] [address] Nov, [facility] [address] [facility] [id number] [address] [place] [address] Nov, Bipolar 1 disorder, mixed F3 1.60 [facility] [address] [place] [id number] [place] [address] Nov, Fibromyalgia M79.7 and Aller gic rhinitis J30.9 [facility] [address] [place] [id number] [place] [address] October, Bipolar 1 disorder, mixed F3 1.60 [facility] [address] [place] [id number] [place] [address] October, Acute nasopharyngitis J00 [facility] [address] [place] [id number] [place] [address] October, Bitten or stung by nonvenomo us insect and other nonvenomous arthropods, initial encounter W57.XXXA and Insect bite (nonvenomous) of abdominal wall, initial encounter S30.861A [place] [address] [address] October, Insect bite (nonvenomous) of abdominal wall, initial encounter S30.861A ; Bitten or stung by nonvenomous insect and other nonvenomous arthropods, initial encounter W57.XXXA ; Allergic rhinitis J30.9 and Low back pain M54.5 [facility] [address] [place] [id number] [place] [address] October, Bipolar 1 disorder, mixed F3 1.60 [place] [address] [place] [id number] [address] [place] [address] October, [facility] [address] [place] [address] October, [place] [address] [address] October, Bipolar 1 disorder, mixed F3 1.60 [place] [address] [place] [id number] [place] [address] Sep, Bipolar 1 disorder, mixed F3 1.60 [place] [address] [place] [id number] [place] [address] Sep, Other chronic pain G89.29 [facility] [address] [id number] [address] [place] [address] Sep, [facility] [address] [facility] [id number] [address] [place] [address] Sep, Bipolar 1 disorder, mixed F3 1.60 [facility] [address] [facility] [id number] [address] [place] [address] Sep, Allergic rhinitis J30.9 and Sciatica of left side M54.32 [facility] [address] [facility] [id number] [address] [place] [address] Sep, Bipolar 1 disorder, mixed F3 1.60 [facility] [address] [place] [place] [id number] [place] [address] Sep, Bipolar 1 disorder, mixed F3 1.60 and Generalized anxiety disorder F41.1 [facility] [address] [facility] [id number] [address] [place] [address] Aug, [facility] [address] [facility] [id number] [address] [place] [address] Aug, Bipolar 1 disorder, mixed F3 1.60 [facility] [address] [facility] [id number] [address] [place] [address] Aug, Bipolar 1 disorder, mixed F3 1.60 [facility] [address] [facility] [id number] [address] [place] [address] Aug, [facility] [address] [facility] [id number] [address] [place] [address] Aug, Generalized anxiety disorder F41.1 [facility] [address] [facility] [id number] [address] [place] [address] Aug, Bipolar 1 disorder, mixed F3 1.60 [facility] [address] [facility] [id number] [address] [place] [address] Aug, Plantar wart of right foot B 07.0 [facility] [address] [facility] [id number] [address] [place] [address] Aug, Bipolar 1 disorder, mixed F3 1.60 [facility] [address] [facility] [id number] [address] [place] [address] Jul, Bipolar 1 disorder, mixed F3 1.60 [facility] [address] [place] [place] [id number] [place] [address] Jul, [facility] [address] [facility] [id number] [address] [place] [address] Jul, Bipolar 1 disorder, mixed F3 1.60 [facility] [address] [place] [id number] [place] [address] Jul, Generalized anxiety disorder F41.1 [facility] [address] [place] [id number] [place] [address] Jul, Bipolar 1 disorder, mixed F3 1.60 [facility] [address] [place] [place] [id number] [place] [address] Jul, Acute left-sided low back pa in with left-sided sciatica M54.42 [facility] [address] [place] [place] [id number] [place] [address] 05 Jul, 2017 Coccydynia M53.3 [facility] [address] [place] [place] [id number] [place] [address] Jun, Bipolar 1 disorder, mixed F3 1.60 [facility] [address] [facility] [id number] [address] [place] [address] Jun, Acute nasopharyngitis J00 [facility] [address] [facility] [id number] [address] [place] [address] Jun, Bipolar 1 disorder, mixed F3 1.60 [facility] [address] [place] [place] [id number] [place] [address] Jun, Fibromyalgia M79.7 [place] [address] [place] [id number] [address] [place] [address] Jun, Bipolar 1 disorder, mixed F3 1.60 [place] [address] [address] Jun, Fibromyalgia M79.7 and Bipol ar 1 disorder, mixed F31.60 [place] [address] [address] May, Bipolar 1 disorder, mixed F3 1.60 ; Generalized anxiety disorder F41.1 and 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 [place] [address] [address] May, Bipolar 1 disorder, mixed F3 1.60 [facility] [place] [address] [address] May, Cough R05 and Body aches R52 [facility] [place] [address] [address] May, Bladder spasm N32.[address] cystitis without hematuria N30.00 [place] [address] [address] May, Bipolar 1 disorder, mixed F3 1.60 [place] [address] [address] Apr, [place] [address] [address] Apr, Major depressive disorder, r ecurrent episode, moderate F33.1 and Encounter for immunization Z23 [place] [address] [address] Apr, Bipolar 1 disorder, mixed F3 1.60 [place] [address] [address] Apr, Bipolar 1 disorder, mixed F3 1.60 [place] [address] [place] [id number] [place] [address] 16 Apr, 2017 Bipolar 1 disorder, mixed F3 1.60 [facility] [address] [address] Apr, Yeast vaginitis B37.3 [facility] [address] [place] [address] Apr, Bipolar 1 disorder, mixed F3 1.60 [facility] [address] [place] [id number] [place] [address] 07 Apr, 2017 Cellulitis L03.[address] for immunization Z23 [place] [address] [address] Apr, Bipolar 1 disorder, mixed F3 1.60 [place] [address] [address] Mar, Bipolar 1 disorder, mixed F3 1.60 [place] [address] [place] [id number] [address] [place] [address] Mar, Bipolar 1 disorder, mixed F3 1.60 [facility] [address] [address] Mar, Imbalance R26.89 [address] for immunization Z23 [facility] [address] [address] Mar, Generalized anxiety disorder F41.1 [facility] [address] [place] [id number] [place] [address] Mar, Bipolar 1 disorder, mixed F3 1.60 [facility] [address] [place] [id number] [address] [place] [address] Mar, Generalized anxiety disorder F41.1 [facility] [address] [place] [id number] [place] [address] Mar, Bipolar 1 disorder, mixed F3 1.60 [place] [address] [address] Mar, Bipolar 1 disorder, mixed F3 1.60 [place] [address] [address] Feb, Bipolar 1 disorder, mixed F3 1.60 [place] [address] [address] Feb, Bipolar 1 disorder, mixed F3 1.60 and Generalized anxiety disorder F41.1 [place] [address] [address] Feb, Gastritis without bleeding, unspecified chronicity, unspecified gastritis type K29.70 ; Hammer toe of right foot M20.41 and Other viral warts B07.8 [place] [address] [address] Feb, Bipolar 1 disorder, mixed F3 1.60 [place] [address] [address] Feb, Bipolar 1 disorder, mixed F3 1.60 [place] [address] [address] 05 Feb, 2017 Bipolar 1 disorder, mixed F3 1.60 [place] [address] [address] Jan, Encounter for screening mamm ogram for breast cancer Z12.31 ; Other viral warts B07.8 and Allergic rhinitis J30.9 [place] [address] [address] Jan, Bipolar 1 disorder, mixed F3 1.60 [place] [address] [address] Jan, Bipolar 1 disorder, mixed F3 1.60 [place] [address] [address] Jan, [place] [address] [place] [address] Jan, Bipolar 1 disorder, mixed F3 1.60 [place] [address] [address] Jan, Bipolar 1 disorder, mixed F3 1.60 [place] [address] [address] Jan, Allergic rhinitis J30.9 ; He maturia R31.9 and Colon cancer screening Z12.11 [place] [address] [address] Dec, Bipolar 1 disorder, mixed F3 1.60 [place] [address] [address] Dec, Bipolar 1 disorder, mixed F3 1.60 ; Generalized anxiety disorder F41.1 and 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 [place] [address] [address] Dec, Bipolar 1 disorder, mixed F3 1.60 [place] [address] [address] Dec, Bipolar 1 disorder, mixed F3 1.60 [place] [address] [address] Dec, Bipolar 1 disorder, mixed F3 1.60 [place] [address] [address] Dec, Low back pain M54.5 and Recu rrent urinary tract infection N39.0 [place] [address] [address] Nov, Bipolar 1 disorder, mixed F3 1.60 [place] [address] [place] [id number] [place] [address] Nov, Bipolar 1 disorder, mixed F3 1.60 [place] [address] [address] Nov, Bipolar 1 disorder, mixed F3 1.60 [place] [address] [place] [id number] [place] [address] Nov, Bipolar 1 disorder, mixed F3 1.60 [place] [address] [place] [id number] [place] [address] Nov, [place] [address] [place] [address] Nov, Anesthesia of skin R20.0 ; F requent UTI N39.0 ; Tobacco abuse Z72.0 and Colon cancer screening Z12.11 [place] [address] [place] [id number] [place] [address] Nov, Bipolar 1 disorder, mixed F3 1.60 [place] [address] [place] [id number] [address] [place] [address] October, Bipolar 1 disorder, mixed F3 1.60 [place] [address] [place] [address] October, Bipolar 1 disorder, mixed F3 1.60 [place] [address] [address] October, Bipolar 1 disorder, mixed F3 1.60 [place] [address] [place] [id number] [address] [place] [address] October, Bipolar 1 disorder, mixed F3 1.60 [place] [address] [place] [id number] [place] [address] October, Bipolar 1 disorder, mixed F3 1.60 [place] [address] [place] [id number] [place] [address] October, Cervicalgia M54.2 and Bipola r 1 disorder, mixed F31.60 [place] [address] [place] [id number] [place] [address] October, Hypertension I10 ; Hyperlipi demia, unspecified hyperlipidemia type E78.5 and Family history of thyroid disease Z83.49 [place] [address] [place] [id number] October, [place] [address] [place] [address] October, Hypertension I10 ; Hyperlipi demia, unspecified hyperlipidemia type E78.5 and Family history of thyroid problem Z83.49 [place] [address] [place] [id number] October, Bipolar 1 disorder, mixed F3 1.60 [place] [address] [place] 49[address]62[address] Sep, Bipolar 1 disorder, mixed F3 1.60 [place] [address] [address] Sep, Bipolar 1 disorder, mixed F3 1.60 [place] [address] [address] Sep, Bipolar 1 disorder, mixed F3 1.60 [place] [address] [address] Sep, History of colon polyps Z86. 010 and Hematochezia K92.1 [place] [address] [address] Sep, Major depressive disorder, r ecurrent episode, moderate F33.1 [place] [address] [address] Sep, Bipolar 1 disorder, mixed F3 1.60 [place] [address] [address] Aug, Hot flashes due to menopause N95.1 [place] [address] [address] Aug, Bipolar 1 disorder, mixed F3 1.60 [place] [address] [address] Aug, [place] [address] [address] Aug, Bipolar 1 disorder, mixed F3 1.60 [place] [address] [address] Aug, Bipolar 1 disorder, mixed F3 1.60 [place] [address] [address] Aug, Hot flashes due to menopause N95.1 ; Cervicalgia M54.2 and Ataxia R27.0 [place] [address] [address] Jul, Bipolar 1 disorder, mixed F3 1.60 [place] [address] [address] Jul, Bipolar 1 disorder, mixed F3 1.60 [place] [address] [address] Jul, Bipolar 1 disorder, mixed F3 1.60 [place] [address] [address] Jul, Bipolar 1 disorder, mixed F3 1.60 [place] [address] [address] Jul, Bipolar 1 disorder, mixed F3 1.60 [place] [address] [address] Jul, Cervicalgia M54.2 ; Tremor R 25.1 ; Hearing abnormally acute, unspecified laterality H93.239 ; Alopecia L65.9 ; Encounter for immunization Z23 and Family history of thyroid disease Z83.49 [place] [address] [address] Jul, Bipolar 1 disorder, mixed F3 1.60 [place] [address] [place] [id number] [address] [place] [address] Jun, [facility] [address] [facility] [id number] [address] [place], [place] [address] Jun, Hearing disorder, unspecifie d laterality H93.299 [facility] [address] [place] [id number] [place] [address] Jun, Bipolar 1 disorder, mixed F3 1.60 [facility] [address] [facility] [id number] [address] [place] [address] Jun, Bipolar 1 disorder, mixed F3 1.60 [facility] [address] [address] Jun, Allergic rhinitis J30.9 [facility] [address] [facility] [id number] [address] [place] [address] Jun, Bipolar 1 disorder, mixed F3 1.60 [facility] [address] [place] [id number] [place] [address] Jun, Bipolar 1 disorder, mixed F3 1.60 [facility] [address] [place] [id number] [place] [address] Jun, Allergic rhinitis J30.9 [facility] [address] [facility] [id number] [address] [place] [id number] Jun, Allergic rhinitis J30.9 [facility] [address] [facility] [id number] [address] [place] [phone] Jun, Bipolar 1 disorder, mixed F3 1.60 [facility] [address] [facility] [id number] [address] [place] [id number] May, Bipolar 1 disorder, mixed F3 1.60 [facility] [address] [place] [id number] [address] [place] [phone] May, Bipolar 1 disorder, mixed F3 1.60 [facility] [address] [place] [place] [id number] [address] [place] [phone] May, [facility] [address] [facility] [id number] [address] [place] [id number] May, Bipolar 1 disorder, mixed F3 1.60 [facility] [address] [facility] [id number] [address] [place] [id number] May, Bipolar 1 disorder, mixed F3 1.60 [facility] [address] [facility] [id number] [address] [place] [phone] May, [facility] [address] [facility] [id number] [address] [place] [phone] May, [facility] [address] [facility] [id number] [address] [place] [id number] May, [facility] [address] [facility] [id number] [address] [place] [id number] May, Abdominal pain, unspecified location R10.9 [facility] [address] [facility] [id number] [address] [place] [id number] May, [facility] [address] [place] [place] [id number] [address] [place] [id number] Apr, Hematuria R31.9 ; Ataxia R27 .0 and Hearing loss, unspecified laterality H91.90 [facility] [address] [facility] [id number] [address] [place] [id number] Apr, Bipolar 1 disorder, mixed F3 1.60 [facility] [address] [facility] [id number] [address] [place] [phone] Apr, Acute effusion of both middl e ears H65.193 [facility] [address] [facility] [id number] [address] [place] [phone] Apr, Hematuria R31.9 and Pyelonep hritis N12 [facility] [address] [facility] [id number] [address] [place] [place] [address] Apr, [facility] [address] [id number] [address] [place] [address] Mar, Bipolar 1 disorder, mixed F3 1.60 [place] [address] [id number] [address] [place] [address] Mar, [place] [address] [facility] [id number] [address] [place] [address] Mar, Bipolar 1 disorder, mixed F3 1.60 [place] [address] [id number] [address] [place] [address] Mar, Bipolar 1 disorder, mixed F3 1.60 [place] [address] [facility] [id number] [address] [place] [address] Mar, Encounter for immunization Z 23 and Gastritis without bleeding, unspecified chronicity, unspecified gastritis type K29.70 [place] [address] [id number] [address] [place] [address] Mar, Bipolar 1 disorder, mixed F3 1.60 and Grief F43.20 [place] [address] [place] [address] Mar, Gastritis without bleeding, unspecified chronicity, unspecified gastritis type K29.70 [place] [address] [place] [id number] [address] [place] [address] Mar, Bipolar 1 disorder, mixed F3 1.60 [place] [address] [place] [id number] [address] [place] [address] Mar, Gastritis without bleeding, unspecified chronicity, unspecified gastritis type K29.70 [place] [address] [place] [id number] [address] [place] [address] Mar, [place] [address] [place] [id number] [address] [place] [address] Feb, Bipolar 1 disorder, mixed F3 1.60 [place] [address] [place] [id number] [address] [place] [address] Feb, Bipolar 1 disorder, mixed F3 1.60 and Grief F43.20 [place] [address] [place] [id number] [address] [place] [address] 22 Feb, 2016 Gastritis without bleeding, unspecified chronicity, unspecified gastritis type K29.70 [facility] [address] [id number] [address] [place] [address] 14 Feb, 2016 Bipolar 1 disorder, mixed F3 1.60 [facility] [address] [id number] [address] [place] [address] 09 Feb, 2016 Gastroesophageal reflux dise ase, esophagitis presence not specified K21.9 [facility] [address] [id number] [address] [place] [address] Jan, Bipolar 1 disorder, mixed F3 1.60 [place] [address] Jan, Bipolar 1 disorder, mixed F3 1.60 and Unsteady gait R26.81 [place] [address] [place] [id number] [address] [place] [address] Jan, Bipolar 1 disorder, mixed F3 1.60 [facility] [address] [address] Jan, Bipolar 1 disorder, mixed F3 1.60 and 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 [place] [address] [address] Jan, Bipolar 1 disorder, mixed F3 1.60 [place] [address] [place] [id number] [address] [place] [address] Jan, Bipolar 1 disorder, mixed F3 1.60 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 [place] [address] [id number] [address] [place] [address] Jan, Bipolar 1 disorder, mixed F3 1.60 [place] [address] [place] [address] Dec, [place] [address] [address] Dec, Bipolar 1 disorder, mixed F3 1.60 ; Vitamin D deficiency, unspecified E55.9 ; H/O allergic rhinitis Z87.09 ; Other chronic pain G89.29 and Dorsalgia, unspecified M54.9 [place] [address] [id number] [address] [place] [address] Dec, [place] [address] [place] [id number] [address] [place] [address] Dec, Bipolar 1 disorder, mixed F3 1.60 [place] [address] [id number] [place] [address] Dec, Major depressive disorder, r ecurrent episode, moderate F33.1 [place] [address] [place] [id number] [address] [place] [address] Dec, Major depressive disorder, r ecurrent episode, moderate F33.1 [place] [address] [place] [id number] [address] [place] [address] Nov, [place] [address] [place] [id number] [address] [place] [address] Nov, Bipolar 1 disorder, mixed F3 1.60 [place] [address] [place] [id number] [address] [place] [address] Nov, Major depressive disorder, r ecurrent episode, moderate F33.1 [place] [address] [place] [id number] [address] [place] [address] Nov, Cervicalgia M54.2 ; Arthralg ia of hip, unspecified laterality M25.559 ; Allergic rhinitis J30.9 and Hormone replacement therapy Z79.890 [facility] [address] [facility] [id number] [address] [place] [address] Nov, Other seasonal allergic rhin itis J30.2 [place] [id number] [id number] [address] [place] [address] October, Major depressive disorder, r ecurrent episode, moderate F33.1 [place] [address] [facility] [id number] [address] [place] [address] October, Major depressive disorder, r ecurrent episode, moderate F33.1 and Arthralgia of hip, unspecified laterality M25.559 [place] [address] [facility] [id number] [address] [place] [address] October, Grief F43.20 ; Hypertension I10 ; Hyperlipidemia, unspecified hyperlipidemia type E78.5 ; Other chronic pain G89.29 and Allergic rhinitis, unspecified allergic rhinitis type J30.9 [place] [address] [facility] [id number] [address] [place] [address] October, Major depressive disorder, r ecurrent episode, moderate F33.1 [place] [address] [facility] [id number] [address] [place] [address] Sep, Major depressive disorder, r ecurrent episode, moderate F33.1 [place] [address] [place] [id number] [address] [place] [address] Sep, [place] [address] [facility] [id number] [address] [place] [address] Sep, Major depressive disorder, r ecurrent episode, moderate F33.1 [place] [address] [facility] [id number] [address] [place] [address] Sep, Grief F43.20 [place] [address] [facility] [id number] [address] [place] [address] Aug, Major depressive disorder, r ecurrent episode, moderate F33.1 [place] [address] [facility] [id number] [address] [place] [address] Aug, Bipolar 1 disorder, mixed F3 1.60 [place] [address] [place] [id number] [address] [place] [address] Aug, Allergic rhinitis J30.9 ; Ce rvicalgia M54.2 and Low back pain M54.5 [facility] [address] [facility] [id number] [address] [place] [address] Aug, Major depressive disorder, r ecurrent episode, moderate F33.1 [facility] [address] [facility] [id number] [address] [place] [address] Aug, Sinusitis J32.9 and Tobacco 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 [facility] [address] [facility] [id number] [address] [place] [address] Aug, [facility] [address] [address] Aug, Depressive disorder, not els ewhere classified F32.9 ; Hormone replacement therapy Z79.[address] scan, head R93.0 [place] [address] [place] [address] Aug, Major depressive disorder, r ecurrent episode, moderate F33.1 [facility] [address] [place] [address] Jul, Major depressive disorder, r ecurrent episode, moderate F33.1 [facility] [address] [id number] [address] [place] [address] Jul, Abdominal pain R10.9 and Hyp ertension I10 [facility] [address] [id number] [address] [place] [address] Jul, [facility] [address] [facility] [id number] [address] [place] [address] Jul, Major depressive disorder, r ecurrent episode, moderate F33.1 [facility] [address] [id number] [address] [place] [address] Jul, [facility] [address] [id number] [address] [place] [address] Jul, [facility] [address] [facility] [id number] [address] [place] [address] Jun, [facility] [address] [facility] [id number] [address] [place] [address] Jun, Depressive disorder, not els ewhere classified F32.9 [facility] [address] [id number] [address] [place] [address] Jun, [facility] [address] [facility] [id number] [address] [place] [address] Jun, [facility] [address] [facility] [id number] [address] [place] [address] Jun, Arthralgia of hip, unspecifi ed laterality M25.559 ; Bruising, spontaneous R23.3 and Night sweats R61 [facility] [address] [facility] [id number] [address] [place] [address] Jun, [facility] [address] [facility] [id number] [address] [place] [address] Jun, [facility] [address] [id number] [address] [place] [address] May, [facility] [address] [id number] [address] [place] [address] May, Myalgia M79.1 and Screening, lipid Z13.220 [facility] [address] [facility] [id number] [address] [place] [address] Apr, Status post cervical spinal fusion Z98.1 ; Fibromyalgia M79.7 and Unsteady gait R26.81 [facility] [address] [facility] [id number] [address] [place] [address] Nov, [facility] [address] [facility] [id number] [address] [place] [address] Nov, [facility] [address] [id number] [address] [place] [phone] October, [facility] [address] [id number] [address] [place] [address] October, [facility] [address] [id number] [address] [place] [address], [place] [address] October, [facility] [address] [id number] [address] [place] [address], [place] [address] October, [facility] [address] [id number] [address] [place] [address] October, [facility] [address] [id number] [address] [place] [address] October, Dysuria 788.1 ; Nausea 787.0 2 and Urinary tract infection 599.0 [facility] [address] [id number] [address] [place] [address], [place] [address] Sep, [facility] [address] [id number] [address] [place] [address] Sep, [facility] [address] [id number] [address] [place] [address] Aug, [facility] [address] [id number] [address] [place] [address], [place] [address] Aug, [facility] [address] [id number] [address] [place] [address] Aug, [facility] [address] [id number] [address] [place] [address], [place] [address] Aug, [facility] [address] [id number] [address] [place] [address] Aug, [facility] [address] [id number] [address] [place] [address], [place] [address] Aug, [facility] [address] [id number] [address] [place] [address] Aug, [facility] [address] [id number] [address] [place] [address] 19 Aug, 2014 [facility] [address] [id number] [facility] [place] [address] 19 Aug, 2014 [facility] [address] [id number] [address] [place] [address], [place] [address] 18 Aug, 2014 [facility] [address] [id number] [address] [place] [address], [place] [address] 18 Aug, 2014 [facility] [address] [id number] [address] [place] [address], [place] [address] 13 Aug, 2014 [facility] [address] [id number] [address] [place] [address], [place] [address] 13 Aug, 2014 [facility] [address] [id number] [address] [place] [address], [place] [address] 11 Aug, 2014 [facility] [address] [id number] [address] [place] [address], [place] [address] Aug, [facility] [address] [id number] [address] [place] [address], [place] [address] 06 Aug, 2014 [facility] [address] [id number] [address] [place] [address], [place] [address] 06 Aug, 2014 [facility] [address] [id number] [address] [place] [address], [place] [address] 05 Aug, 2014 [facility] [address] [id number] [address] [place] [address], [place] [address] 05 Aug, 2014 [facility] [address] [id number] [address] [place] [address], [place] [address] 04 Aug, 2014 [facility] [address] [id number] [address] [place] [address], [place] [address] Aug, [facility] [address] [id number] [address] [place] [address], [place] [address] Aug, [facility] [address] [id number] [address] [place] [address], [place] [address] Jul, [facility] [address] [id number] [address] [place] [address], [place] [address] Jul, 2014 [facility] [address] [id number] [address] [place] [address], [place] [id number] Jul, 2014 [facility] [address] [id number] [address] [place] [address], [place] [address] Jul, 2014 [facility] [address] [id number] [address] [place] [address], [place] [address] Jul, 2014 [facility] [address] [id number] [address] [place] [address], [place] [address] Jul, 2014 [facility] [address] [id number] [address] [place] [address], [place] [address] Jul, 2014 [facility] [address] [id number] [address] [place] [address], [place] [address] Jul, 2014 [facility] [address] [id number] [address] [place] [address], [place] [address] Jul, 2014 [facility] [address] [id number] [address] [place] [address], [place] [address] Jul, [facility] [address] [id number] [address] [place] [address], [place] [address] Jul, [facility] [address] [id number] [address] [place] [address] Jul, [facility] [address] [id number] [address] [place] [address] Jul, [facility] [address] [id number] [address] [place] [address], [place] [address] Jul, [facility] [address] [id number] [address] [place] [address] Jun, [facility] [address] [id number] [address] [place] [address] Jun, [facility] [address] [id number] [address] [place] [address] Jun, [facility] [address] [id number] [address] [place] [address], [place] [address] Jun, [facility] [address] [id number] [address] [place] [address], [place] [address] Jun, [facility] [address] [id number] [address] [place] [address], [place] [address] Jun, [facility] [address] [id number] [address] [place] [address], [place] [address] May, [facility] [address] [id number] [address] [place] [address], [place] [address] May, [facility] [address] [id number] [address] [place] [address], [place] [address] May, [facility] [address] [id number] [address] [place] [address], [place] [address] May, [facility] [address] [id number] [address] [place] [address], [place] [address] May, [facility] [address] [id number] [address] [place] [address], [place] [address] May, [facility] [address] [id number] [address] [place] [address], [place] [address] Apr, [facility] [address] [id number] [address] [place] [address], [place] [address] Apr, [facility] [address] [id number] [address] [place] [address], [place] [address] Apr, [facility] [address] [id number] [address] [place] [address], [place] [address] Apr, [facility] [address] [id number] [address] [place] [address], [place] [address] Apr, [facility] [address] [id number] [address] [place] [address], [place] [address] Apr, [facility] [address] [id number] [address] [place] [address], [place] [address] Mar, 2013 [facility] [address] [id number] [address] [place] [address], [place] [address] Mar, 2013 [facility] [address] [id number] [address] [place] [address], [place] [address] Mar, 2013 [facility] [address] [id number] [address] [place] [address], [place] [address] Mar, 2013 [facility] [address] [id number] [address] [place] [address], [place] [address] Mar, 2013 [facility] [address] [id number] [address] [place] [address], [place] [address] Mar, 2013 [facility] [address] [id number] [address] [place] [address], [place] [address] Mar, 2013 [facility] [address] [id number] [address] [place] [address], [place] [address] Mar, 2013 [facility] [address] [id number] [address] [place] [address], [place] [address] Mar, [facility] [address] [id number] [address] [place] [address], [place] [address] Mar, 2013 [facility] [address] [id number] [address] [place] [address], [place] [address] Mar, [facility] [address] [id number] [address] [place] [address], [place] [address] Mar, 2013 [facility] [address] [id number] [address] [place] [address], [place] [address] 30 Feb, 2013 [facility] [address] [id number] [address] [place] [address], [place] [address] 29 Feb, 2013 [facility] [address] [id number] [address] [place] [address], [place] [address] 29 Feb, 2013 [facility] [address] [id number] [address] [place] [address], [place] [address] Feb, [facility] [address] [id number] [address] [place] [address] Feb, [facility] [address] [id number] [address] [place] [address], [place] [address] Feb, [facility] [address] [id number] [address] [place] [address], [place] [id number] Feb, [facility] [address] [id number] [address] [place] [address], [place] [address] Jan, [facility] [address] [id number] [address] [place] [address], [place] [id number] Jan, [facility] [address] [id number] [address] [place] [address], [place] [address] Jan, [facility] [address] [id number] [address] [place] [address], [place] [address] Dec, [facility] [address] [id number] [address] [place] [address], [place] [address] Dec, [facility] [address] [id number] [address] [place] [address], [place] [address] Dec, [facility] [address] [id number] [address] [place] [address], [place] [address] Dec, [facility] [address] [id number] [address] [place] [address], [place] [address] Sep, [facility] [address] [id number] [address] [place] [address], [place] [address] Sep, [facility] [address] [id number] [address] [place] [address], [place] [address] Sep, [facility] [address] [id number] [address] [place] [address], [place] [address] Sep, [facility] [address] [id number] [address] [place] [address], [place] [address] Sep, [facility] [address] [id number] [address] [place] [address], [place] [address] Sep, [facility] [address] [id number] [address] [place] [address], [place] [address] Sep, [facility] [address] [id number] [address] [place] [address], [place] [address] Sep, [facility] [address] [id number] [address] [place] [address], [place] [address] Aug, [facility] [address] [id number] [address] [place] [address], [place] [address] Aug, [facility] [address] [id number] [address] [place] [address], [place] [address] May, [facility] [address] [id number] [address] [place] [address], [place] [address] May, [facility] [address] [id number] [address] [place] [address], [place] [id number] Apr, [facility] [address] [id number] [address] [place] [address], [place] [id number] Apr, [facility] [address] [id number] [address] [place] [address], [place] [address] Apr, [facility] [address] [id number] [address] [place] [address], [place] [address] Apr, [facility] [address] [id number] [address] [place] [address], [place] [id number] Apr, [facility] [address] [id number] [address] [place] [address], [place] [address] Apr, [facility] [address] [id number] [address] [place] [address], [place] [address] May, [facility] [address] [id number] [address] [place] [address], [place] [address] May, [facility] [address] [id number] [address] [place] [address], [place] [id number] 15 May, 2012 [facility] [address] [id number] [address] [place] [address], [place] [id number] 15 May, 2012 [facility] [address] [id number] [address] [place] [address], [place] [id number] 13 May, 2012 [facility] [address] [id number] [address] [place] [address], [place] [id number] 13 May, 2012 [facility] [address] [id number] [address] [place] [address], [place] [id number] 13 Apr, 2012 [facility] [address] [id number] [address] [place] [address], [place] [id number] 13 Apr, 2012 [facility] [address] [id number] [address] [place] [address], [place] [id number] 08 Apr, 2012 [facility] [address] [id number] [address] [place] [address], [place] [address] Apr, [facility] [address] [id number] [address] [place] [address], [place] [id number] Apr, [facility] [address] [id number] [address] [place], [place] [address], [place] [id number] Apr, [facility] [address] [id number] [address] [place] [address], [place] [id number] Apr, [facility] [address] [id number] [address] [place] [address], [place] [id number] Apr, [facility] [address] [id number] [address] [place] [address], [place] [address] Apr, [facility] [address] [id number] [address] [place] [address], [place] [address] Apr, [facility] [address] [id number] [address] [place] [address], [place] [address] Mar, [facility] [address] [id number] [address] [place] [address], [place] [address] Mar, [facility] [address] [id number] [address] [place] [address], [place] [address] Mar, [facility] [address] [id number] [address] [place] [address], [place] [address] Mar, [facility] [address] [id number] [address] [place] [address], [place] [address] Mar, [facility] [address] [id number] [address] [place] [address], [place] [address] Mar, [facility] [address] [id number] [address] [place] [address], [place] [address] Mar, [facility] [address] [id number] [address] [place] [address], [place] [address] Mar, [facility] [address] [id number] [address] [place] [address], [place] [address] Mar, [facility] [address] [id number] [address] [place] [address], [place] [address] Feb, [facility] [address] [id number] [address] [place] [address], [place] [id number] 16 Feb, 2012 [facility] [address] [id number] [address] [place] [address], [place] [id number] Feb, [facility] [address] [id number] [address] [place] [address], [place] [id number] Jan, [facility] [address] [id number] [address] [place] [address], [place] [address] Jan, [facility] [address] [id number] [address] [place] [id number] Jan, [facility] [address] [id number] [address] [place] [address], [place] [address] Jan, [facility] [address] [id number] [address] [place] [address], [place] [address] Jan, [facility] [address] [id number] [address] [place] [address], [place] [address] Jan, [facility] [address] [id number] [address] [place] [address], [place] [id number] 16 Jan, 2012 [facility] [address] [id number] [address] [place] [address], [place] [address] Jan, [facility] [address] [id number] [address] [place] [address], [place] [id number] Jan, [facility] [address] [id number] [address] [place] [address], [place] [id number] Jan, [facility] [address] [id number] [address] [place] [address], [place] [address] Dec, [facility] [address] [id number] [address] [place] [address], [place] [address] Dec, [facility] [address] [id number] [address] [place] [address], [place] [address] Dec, [facility] [address] [id number] [address] [place] [address], [place] [id number] Dec, [facility] [address] [id number] [address] [place] [address], [place] [address] Nov, [facility] [address] [id number] [address] [place] [address], [place] [address] Nov, [facility] [address] [id number] [address] [place] [address], [place] [id number] Nov, [facility] [address] [id number] [address] [place] [address], [place] [address] October, [facility] [address] [id number] [address] [place] [address], [place] [address] October, [facility] [address] [id number] [address] [place] [address], [place] [address] October, [facility] [address] [id number] [address] [place] [address], [place] [address] October, [facility] [address] [id number] [address] [place] [address], [place] [address] October, [facility] [address] [id number] [address] [place] [id number] October, [facility] [address] [id number] [address] [place] [id number] Aug, [facility] [address] [id number] [address] [place] [id number] Mar, [facility] [address] [id number] [address] [place] [id number] Nov, [facility] [address] [id number] [address] [place] [id number] May, [facility] [address] [id number] [address] [place] [id number] May, [facility] [address] [id number] [address] [place] [id number] Apr, [facility] [address] [id number] [address] [place] [id number] Mar, [facility] [address] [id number] [address] [place] [id number] Mar, IMMUNIZATIONS No Known Immunizations SOCIAL HISTORY Never Assessed REASON FOR VISIT TAMAR f/Josefina ACEVEDO PLAN OF CARE Activity Details Follow Up 3 Months Reason: f/u VITAL SIGNS Height 64 in 2017-12-31 Weight 164.7 lbs 2017-12-31 Heart Rate 102 bpm 2017-12-31 Respiratory Rate 22 2017-12-31 BMI 28.27 kg/m2 2017-12-31 Blood pressure systolic 134 mmHg 2017-12-31 Blood pressure diastolic 86 mmHg 2017-12-31 MEDICATIONS Medication Instructions Dosage Frequency Start Date End Date Duration S tatus Beclomethasone Dipropionate 80 MCG/ACT Nasally Once a day 2 puffs in each nostril 24h 16 Sep, 2017 30 day(s) Active Oxybutynin Chloride ER 10 MG Orally Once a day 1 tablet 24h 11 Oct, 2017 30 day(s) Active Probiotic Acidophilus Ac tive Flunisolide 25 MCG/ACT (0.025%) Nasally Twice a day 2 sprays in each nostril 12h 24 Sep, 2018 30 day(s) Active Depakote ER 500 mg Orally at bedtime 2 tabs Active Magnesium 500 MG Orally Once a day 1 tablet with a meal 24h Dec, Active Myrbetriq 50 MG Orally Once a day 1 tablet 24h Not-Taking Estradiol 2 MG Orally Once a day 1 tablet 24h Active Vitamin D3 2000 UNIT Orally Once a day as directed 24h Dec, Active Vagifem 10 MCG Vaginal Two times a Week 1 tablet 84 Active Gabapentin 100 mg Orally 3 times a day 1 capsule 8h Jul, Active Fetzima 120 mg Orally Once a day TAKE 1 CAPSULE BY MOUTH DAILY 24h Active Melatonin 5 mg Orally Once a day 2 tablets 24h May, Active H60-Ecupaj 1 MG Active Pantoprazole Sodium 20 MG TAKE 1 TABLET BY MOUTH ONCE DAILY 90 Active Orally Once a day 1 capsule 24h Act mitchell Mucinex 600 MG Orally every 12 hrs 1 tablet as needed 12h Active Voltaren 1 % Transdermal 4 times a day on neck Active Montelukast Sodium 10 mg Orally Once a day 1 tablet in the evening 24h October, 90 days Active Lyrica 50 mg Orally Twice a day 1 capsule 12h Nov, Not-Taking Ibuprofen 600 MG Orally 4 times a day 1 tablet with food or milk as needed 6h Sep, Jan, 30 days Active Nitrofurantoin Monohyd Macro 100 mg Orally Once a day 1 capsule with food 24h Active Fexofenadine HCl 60 MG Orally Twice a day 1 tablet 12h Nov, 90 days Active Lidocaine-Prilocaine 2.5-2.5 % Active Baclofen 20 mg Orally 2 times a day 1 tablet with food or milk 12h October, Feb, 30 days Active RESULTS Name Result Date Reference Range VALPROIC ACID/DEPAKOTE 2017-12-31 VALPROIC ACID 47.5 50.0-100.0 PROCEDURES Procedure Date Ordered Result Body Site [facility] VISIT ESTABLISHED PATIENT December 31, 2017 LAB NOT BILLED BY [facility] December 31, 2017 INSTRUCTIONS MEDICATIONS ADMINISTERED No Known Medications MEDICAL (GENERAL) HISTORY Type Description Date Medical History Severe spinal stenosis throu cervical spine CT and MRI done 10/2014 at [facility] with Neurosurgery at Medical History Migraine BEAR [...]
--- OUTSIDE RECORDS SUMMARY | 2019-06-19 05:29 | XMS REPORT ---
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 Name Role Phone MIRIAN SQUIRES Unavailable PROBLEMS Type Condition ICD9-CM Code [id number] Code Onset Dates Condition S tatus SNOMED Code Problem Hormone replacement therapy Z79.890 Ac tive 791837846 Problem Abnormal CT scan, head R93.0 Active 102680787 Problem Sensorineural hearing loss (SNHL) of both ears H90 .3 Active 036596365 Problem History of colon polyps Z86.010 Active 824216778 Problem Bruising, spontaneous R23.3 Active 725826627 Problem Generalized anxiety disorder F41.1 A ctive 95394295 Problem Arthralgia of hip, unspecified laterality M25.559 Active 50837557 Problem Hematuria, unspecified type R31.9 Ac tive 32578913 Problem Imbalance R26.89 Active 329147848 Problem Hammer toe of right foot M20.41 Activ e 937858650 Problem Plantar wart of right foot B07.0 Act mitchell [id number] Problem Sciatica of left side M54.32 Active 65252455 Problem Hyperlipidemia, unspecified hyperlipidemia type E7 8.5 Active 18433603 Problem Hypertension I10 Active 2855516 3 Problem Night sweats R61 Active 0602696 0 Problem Fibromyalgia M79.7 Active 1373794 7 Problem Major depressive disorder, recurrent episode, moderate F33.1 Active 281377229 Problem Acute left-sided low back pain with left-sided sciatica M54.42 Active 442377095 Problem Bladder spasm N32.89 Active 726078 006 Problem Gastritis without bleeding, unspecified chronicity, unspecified gastritis type K29.70 Active 697884373 Problem Bipolar 1 disorder, mixed F31.60 Acti ve 62485906 Problem Grief F43.20 Active 44139518 Problem Other chronic pain G89.29 Active 8 8785749 Problem Allergic rhinitis J30.9 Active 61 224015 Problem Hot flashes due to menopause N95.1 A ctive 316259095 Problem Ataxia R27.0 Active 91638886 Problem Hearing loss, unspecified laterality H91.90 Active 98189213 ALLERGIES No Information ENCOUNTERS Encounter Location Date Diagnosis [facility] [address] [facility] [id number] [address] [place] [address] Mar, [facility] [address] [place] [id number] [address] [place] [address] Mar, [facility] [address] [facility] [id number] [address] [place] [address] Feb, [facility] [address] [address] Feb, [facility] [address] [place] [id number] [place] [address] Feb, [facility] [address] [place] [id number] [address] [place] [address] Jan, Bipolar 1 disorder, mixed F3 1.60 [facility] [address] [place] [id number] [address] [place] [address] Jan, Low back pain M54.5 ; Hyperl ipidemia, unspecified hyperlipidemia type E78.5 and Bipolar 1 disorder, mixed F31.60 [place] [address] [place] [id number] [address] [place] [address] Jan, Bipolar 1 disorder, mixed F3 1.60 [facility] [address] [facility] [id number] [address] [place] [address] Jan, Bipolar 1 disorder, mixed F3 1.60 [facility] [address] [place] [id number] [place] [address] Jan, Bipolar 1 disorder, mixed F3 1.60 [facility] [address] [place] [id number] [address] [place] [address] Jan, Bipolar 1 disorder, mixed F3 1.60 [facility] [address] [facility] [id number] [address] [place] [address] Dec, Bipolar 1 disorder, mixed F3 1.60 ; Generalized anxiety disorder F41.1 and Other longterm (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 Z79.899 [facility] [address] [facility] [id number] [address] [place], [place] [address] Dec, Other longterm (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 Z79.899 [facility] [address] [facility] [id number] [address] [place] [address] Dec, Bipolar 1 disorder, mixed F3 1.60 [facility] [address] [facility] [id number] [address] [place] [address] Dec, Bipolar 1 disorder, mixed F3 1.60 [facility] [address] [facility] [id number] [address] [place] [address] Nov, Bipolar 1 disorder, mixed F3 1.60 [facility] [address] [place] [id number] [address] [place] [address] Nov, Bipolar 1 disorder, mixed F3 1.60 [facility] [address] [facility] [id number] [address] [place] [address] Nov, Bipolar 1 disorder, mixed F3 1.60 [facility] [address] [facility] [id number] [address] [place] [address] Nov, Allergic rhinitis J30.9 [facility] [address] [facility] [id number] [address] [place] [address] Nov, Allergic rhinitis J30.9 [facility] [address] [facility] [id number] [address] [place] [address] Nov, [facility] [address] [facility] [id number] [address] [place] [address] Nov, Bipolar 1 disorder, mixed F3 1.60 [facility] [address] [facility] [id number] [address] [place] [address] Nov, Fibromyalgia M79.7 and Aller gic rhinitis J30.9 [facility] [address] [facility] [id number] [address] [place] [address] October, Bipolar 1 disorder, mixed F3 1.60 [facility] [address] [place] [id number] [address] [place] [address] October, Acute nasopharyngitis J00 [facility] [address] [place] [id number] [address] [place] [address] October, Bitten or stung by nonvenomo us insect and other nonvenomous arthropods, initial encounter W57.XXXA and Insect bite (nonvenomous) of abdominal wall, initial encounter S30.861A [facility] [address] [facility] [id number] [address] [place] [address] October, Insect bite (nonvenomous) of abdominal wall, initial encounter S30.861A ; Bitten or stung by nonvenomous insect and other nonvenomous arthropods, initial encounter W57.XXXA ; Allergic rhinitis J30.9 and Low back pain M54.5 [facility] [address] [place] [id number] [address] [place] [address] October, Bipolar 1 disorder, mixed F3 1.60 [facility] [address] [place] [id number] [address] [place] [address] October, [facility] [address] [place] [id number] [address] [place] [address] October, [facility] [address] [place] [id number] [address] [place] [address] October, Bipolar 1 disorder, mixed F3 1.60 [facility] [address] [place] [id number] [address] [place] [address] Sep, Bipolar 1 disorder, mixed F3 1.60 [facility] [address] [place] [id number] [address] [place] [address] Sep, Other chronic pain G89.29 [facility] [address] [place] [id number] [address] [place] [address] Sep, [facility] [address] [id number] [address] [place] [address] Sep, Bipolar 1 disorder, mixed F3 1.60 [facility] [address] [facility] [id number] [address] [place] [address] Sep, Allergic rhinitis J30.9 and Sciatica of left side M54.32 [facility] [address] [facility] [id number] [address] [place] [address] Sep, Bipolar 1 disorder, mixed F3 1.60 [facility] [address] [facility] [id number] [address] [place] [address] Sep, Bipolar 1 disorder, mixed F3 1.60 and Generalized anxiety disorder F41.1 [facility] [address] [place] [id number] [address] [place] [address] Aug, [facility] [address] [place] [id number] [address] [place] [address] Aug, Bipolar 1 disorder, mixed F3 1.60 [facility] [address] [facility] [id number] [address] [place] [address] Aug, Bipolar 1 disorder, mixed F3 1.60 [facility] [address] [facility] [id number] [address] [place] [address] Aug, [facility] [address] [facility] [id number] [address] [place] [address] Aug, Generalized anxiety disorder F41.1 [facility] [address] [facility] [id number] [address] [place] [address] Aug, Bipolar 1 disorder, mixed F3 1.60 [facility] [address] [facility] [id number] [address] [place], [place] [id number] Aug, Plantar wart of right foot B 07.0 [facility] [address] [facility] [id number] [address] [place] [address] Aug, Bipolar 1 disorder, mixed F3 1.60 [facility] [address] [facility] [id number] [address] [place] [address] Jul, Bipolar 1 disorder, mixed F3 1.60 [facility] [address] [facility] [id number] [address] [place] [address] Jul, [facility] [address] [facility] [id number] [address] [place] [address] Jul, Bipolar 1 disorder, mixed F3 1.60 [facility] [address] [facility] [id number] [address] [place] [address] Jul, Generalized anxiety disorder F41.1 [facility] [address] [facility] [id number] [address] [place] [address] 07 Jul, 2017 Bipolar 1 disorder, mixed F3 1.60 [facility] [address] [facility] [id number] [address] [place] [address] 07 Jul, 2017 Acute left-sided low back pa in with left-sided sciatica M54.42 [facility] [address] [facility] [id number] [address] [place] [address] 05 Jul, 2017 Coccydynia M53.3 [facility] [address] [facility] [id number] [address] [place] [address] Jun, Bipolar 1 disorder, mixed F3 1.60 [facility] [address] [facility] [id number] [address] [place] [address] 15 Jun, 2017 Acute nasopharyngitis J00 [facility] [address] [facility] [id number] [address] [place] [address] Jun, Bipolar 1 disorder, mixed F3 1.60 [facility] [address] [facility] [id number] [address] [place] [address] Jun, Fibromyalgia M79.7 [facility] [address] [facility] [id number] [address] [place] [address] Jun, Bipolar 1 disorder, mixed F3 1.60 [place] [address] [address] 08 Jun, 2017 Fibromyalgia M79.7 and Bipol ar 1 disorder, mixed F31.60 [place] [address] [address] May, Bipolar 1 disorder, mixed F3 1.60 ; Generalized anxiety disorder F41.1 and Other longterm (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 Z79.899 [place] [address] [address] May, Bipolar 1 disorder, mixed F3 1.60 [facility] [place] [address] [address] 14 May, 2017 Cough R05 and Body aches R52 [facility] [place] [address] [address] 10 May, 2017 Bladder spasm N32.89 [address] Acu te cystitis without hematuria N30.00 [place] [address] [address] 07 May, 2017 Bipolar 1 disorder, mixed F3 1.60 [place] [address] [address] Apr, [place] [address] [address] Apr, Major depressive disorder, r ecurrent episode, moderate F33.1 and Encounter for immunization Z23 [place] [address] [address] Apr, Bipolar 1 disorder, mixed F3 1.60 [place] [address] [address] Apr, Bipolar 1 disorder, mixed F3 1.60 [place] [address] [address] 16 Apr, 2017 Bipolar 1 disorder, mixed F3 1.60 [place] [address] [place] [id number] [place] [address] 13 Apr, 2017 Yeast vaginitis B37.3 [facility] [address] [place] [id number] [address] [place] [address] 09 Apr, 2017 Bipolar 1 disorder, mixed F3 1.60 [facility] [address] [place] [id number] [address] [place] [address] 07 Apr, [address]03[address] for immunization Z23 [facility] [address] [place] [id number] [address] [place] [address] Apr, Bipolar 1 disorder, mixed F3 1.60 [place] [address] [address] Mar, Bipolar 1 disorder, mixed F3 1.60 [place] [address] [address] Mar, Bipolar 1 disorder, mixed F3 1.60 [facility] [address] [place] [id number] [address] [place] [address] Mar, Imbalance R26.89 and Encount er for immunization Z23 [facility] [address] [place] [id number] [address] [place] [address] Mar, Generalized anxiety disorder F41.1 [place] [address] [place] [id number] [address] [place] [address] Mar, Bipolar 1 disorder, mixed F3 1.60 [facility] [id number] [place] [address] Mar, Generalized anxiety disorder F41.1 [place] [address] [place] [id number] [address] [place] [address] Mar, Bipolar 1 disorder, mixed F3 1.60 [place] [address] [place] [id number] [address] [place] [address] Mar, Bipolar 1 disorder, mixed F3 1.60 [place] [address] [place] [id number] [place] [address] 27 Feb, 2017 Bipolar 1 disorder, mixed F3 1.60 [place] [address] [place] [id number] [place] [address] Feb, Bipolar 1 disorder, mixed F3 1.60 and Generalized anxiety disorder F41.1 [facility] [address] [place] [id number] [address] [place] [address] Feb, Gastritis without bleeding, unspecified chronicity, unspecified gastritis type K29.70 ; Hammer toe of right foot M20.41 and Other viral warts B07.8 [place] [address] [place] [id number] [place] [address] 20 Feb, 2017 Bipolar 1 disorder, mixed F3 1.60 [place] [address] [place] [id number] [place] [address] 13 Feb, 2017 Bipolar 1 disorder, mixed F3 1.60 [place] [id number] [place] [address] 05 Feb, 2017 Bipolar 1 disorder, mixed F3 1.60 [place] [address] [address] Jan, Encounter for screening mamm ogram for breast cancer Z12.31 ; Other viral warts B07.8 and Allergic rhinitis J30.9 [place] [address] [place] [id number] [place] [address] Jan, Bipolar 1 disorder, mixed F3 1.60 [place] [address] [place] [id number] [place] [address] Jan, Bipolar 1 disorder, mixed F3 1.60 [place] [address] [place] [id number] [address] [place] [address] Jan, [place] [address] [place] [id number] [place] [address] Jan, Bipolar 1 disorder, mixed F3 1.60 [place] [address] [place] [id number] [place] [address] Jan, Bipolar 1 disorder, mixed F3 1.60 [place] [address] [address] Jan, Allergic rhinitis J30.9 ; He maturia R31.9 and Colon cancer screening Z12.11 [place] [address] [address] Dec, Bipolar 1 disorder, mixed F3 1.60 [place] [address] [address] Dec, Bipolar 1 disorder, mixed F3 1.60 ; Generalized anxiety disorder F41.1 and Other longterm (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 Z79.899 [place] [address] [address] Dec, Bipolar 1 disorder, mixed F3 1.60 [place] [address] [address] Dec, Bipolar 1 disorder, mixed F3 1.60 [place] [address] [address] Dec, Bipolar 1 disorder, mixed F3 1.60 [place] [address] [address] Dec, Low back pain M54.5 and Recu rrent urinary tract infection N39.0 [place] [address] [place] [id number] [place] [address] Nov, Bipolar 1 disorder, mixed F3 1.60 [place] [address] [place] [id number] [place] [address] Nov, Bipolar 1 disorder, mixed F3 1.60 [place] [address] [place] [id number] [place] [address] Nov, Bipolar 1 disorder, mixed F3 1.60 [place] [address] [address] Nov, Bipolar 1 disorder, mixed F3 1.60 [place] [address] [place] [address] Nov, [place] [address] [place] [id number] Nov, Anesthesia of skin R20.0 ; F requent UTI N39.0 ; Tobacco abuse Z72.0 and Colon cancer screening Z12.11 [place] [address] [address] Nov, Bipolar 1 disorder, mixed F3 1.60 [place] [address] [place] [address] October, Bipolar 1 disorder, mixed F3 1.60 [place] [address] [address] October, Bipolar 1 disorder, mixed F3 1.60 [place] [address] [address] October, Bipolar 1 disorder, mixed F3 1.60 [place] [address] [address] October, Bipolar 1 disorder, mixed F3 1.60 [place] [address] [address] October, Bipolar 1 disorder, mixed F3 1.60 [place] [address] [address] October, Cervicalgia M54.2 and Bipola r 1 disorder, mixed F31.[address] [address] October, Hypertension I10 ; Hyperlipi demia, unspecified hyperlipidemia type E78.5 and Family history of thyroid disease Z83.[address] [address] October, [place] [address] [address] October, Hypertension I10 ; Hyperlipi demia, unspecified hyperlipidemia type E78.5 and Family history of thyroid problem Z83.49 [place] [address] [place] [id number] [place] [address] October, Bipolar 1 disorder, mixed F3 1.60 [place] [address] [address] Sep, Bipolar 1 disorder, mixed F3 1.60 [place] [address] [address] Sep, Bipolar 1 disorder, mixed F3 1.60 [place] [address] [address] Sep, Bipolar 1 disorder, mixed F3 1.60 [place] [address] [address] Sep, History of colon polyps Z86. 010 and Hematochezia K92.1 [place] [address] [address] Sep, Major depressive disorder, r ecurrent episode, moderate F33.1 [place] [address] [address] Sep, Bipolar 1 disorder, mixed F3 1.60 [place] [address] [place] [id number] [address] [place] [address] Aug, Hot flashes due to menopause N95.1 [place] [address] [place] [id number] [place] [address] Aug, Bipolar 1 disorder, mixed F3 1.60 [place] [address] [place] [id number] [place] [address] Aug, [place] [address] [address] Aug, Bipolar 1 disorder, mixed F3 1.60 [place] [address] [address] Aug, Bipolar 1 disorder, mixed F3 1.60 [place] [address] [address] Aug, Hot flashes due to menopause N95.1 ; Cervicalgia M54.2 and Ataxia R27.0 [place] [address] [address] Jul, Bipolar 1 disorder, mixed F3 1.60 [place] [address] [place] [address] Jul, Bipolar 1 disorder, mixed F3 1.60 [place] [address] [address] Jul, Bipolar 1 disorder, mixed F3 1.60 [place] [address] [address] Jul, Bipolar 1 disorder, mixed F3 1.60 [place] [address] [address] Jul, Bipolar 1 disorder, mixed F3 1.60 [place] [address] [address] Jul, Cervicalgia M54.2 ; Tremor R 25.1 ; Hearing abnormally acute, unspecified laterality H93.239 ; Alopecia L65.9 ; Encounter for immunization Z23 and Family history of thyroid disease Z83.49 [place] [address] [address] [place] [id number] Jul, Bipolar 1 disorder, mixed F3 1.60 [place] [address] [address] Jun, [place] [address] [address] Jun, Hearing disorder, unspecifie d laterality H93.299 [facility] [address] [id number] [address] [place], [place] [address] Jun, Bipolar 1 disorder, mixed F3 1.60 [facility] [address] [id number] [address] [place] [id number] Jun, Bipolar 1 disorder, mixed F3 1.60 [facility] [address] [id number] [address] [place] [address] Jun, Allergic rhinitis J30.9 [facility] [address] [id number] [address] [place], [place] [address] Jun, Bipolar 1 disorder, mixed F3 1.60 [facility] [address] [id number] [address] [place] [address] Jun, Bipolar 1 disorder, mixed F3 1.60 [facility] [address] [id number] [address] [place] [address] Jun, Allergic rhinitis J30.9 [facility] [address] [id number] [address] [place] [id number] Jun, Allergic rhinitis J30.9 [facility] [address] [id number] [address] [place] [id number] Jun, Bipolar 1 disorder, mixed F3 1.60 [facility] [address] [id number] [address] [place] [id number] May, Bipolar 1 disorder, mixed F3 1.60 [facility] [address] [id number] [address] [place] [id number] May, Bipolar 1 disorder, mixed F3 1.60 [facility] [address] [facility] [id number] [address] [place] [address] May, [facility] [address] [facility] [id number] [address] [place] [address] May, Bipolar 1 disorder, mixed F3 1.60 [facility] [address] [facility] [id number] [address] [place] [id number] May, Bipolar 1 disorder, mixed F3 1.60 [facility] [address] [facility] [id number] [address] [place] [address] May, [facility] [address] [facility] [facility] [id number] [address] [place] [address] May, [facility] [address] [id number] [address] [place] [address] May, [facility] [address] [id number] [address] [place] [address] May, Abdominal pain, unspecified location R10.9 [facility] [id number] [place] [address] May, [facility] [address] [address] Apr, Hematuria R31.9 ; Ataxia R27 .0 and Hearing loss, unspecified laterality H91.90 [facility] [address] [id number] [address] [place] [address] Apr, Bipolar 1 disorder, mixed F3 1.60 [facility] [address] [facility] [id number] [address] [place] [address] Apr, Acute effusion of both middl e ears H65.193 [facility] [address] [facility] [id number] [address] [place] [address] Apr, Hematuria R31.9 and Pyelonep hritis N12 [facility] [address] [facility] [id number] [address] [place] [address] Apr, [facility] [address] [id number] [address] [place] [address] Mar, Bipolar 1 disorder, mixed F3 1.60 [facility] [address] [id number] [address] [place] [address] Mar, [place] [address] [id number] [address] [place] [address] Mar, Bipolar 1 disorder, mixed F3 1.60 [place] [address] [id number] [address] [place] [address] Mar, Bipolar 1 disorder, mixed F3 1.60 [place] [address] [place] [id number] [address] [place] [address] Mar, Encounter for immunization Z 23 and Gastritis without bleeding, unspecified chronicity, unspecified gastritis type K29.70 [place] [address] [id number] [address] [place] [address] Mar, Bipolar 1 disorder, mixed F3 1.60 and Grief F43.20 [place] [address] [address] [id number] [address] [place] [address] Mar, Gastritis without bleeding, unspecified chronicity, unspecified gastritis type K29.70 [place] [id number] [place] [address] Mar, Bipolar 1 disorder, mixed F3 1.60 [place] [address] [place] [id number] [address] [place], [place] [address] Mar, Gastritis without bleeding, unspecified chronicity, unspecified gastritis type K29.70 [place] [address] [place] [id number] [address] [place] [address] Mar, [place] [address] [place] [id number] [address] [place], [place] [address] Feb, Bipolar 1 disorder, mixed F3 1.60 [place] [address] [place] [address] [id number] [address] [place] [address] Feb, Bipolar 1 disorder, mixed F3 1.60 and Grief F43.20 [place] [address] [place] [address] [id number] [address] [place] [address] Feb, Gastritis without bleeding, unspecified chronicity, unspecified gastritis type K29.70 [place] [address] [place] [address] [id number] [address] [place] [address] 14 Feb, 2016 Bipolar 1 disorder, mixed F3 1.60 [facility] [address] [facility] [id number] [address] [place], [place] [address] Feb, Gastroesophageal reflux dise ase, esophagitis presence not specified K21.9 [facility] [address] [facility] [id number] [address] [place], [place] [id number] Jan, Bipolar 1 disorder, mixed F3 1.60 [facility] [address] [facility] [id number] [address] [place] [address] Jan, Bipolar 1 disorder, mixed F3 1.60 and Unsteady gait R26.81 [facility] [address] [facility] [id number] [address] [place] [address] Jan, Bipolar 1 disorder, mixed F3 1.60 [facility] [address] [id number] [address] [place] [address] Jan, Bipolar 1 disorder, mixed F3 1.60 and 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 [place] [address] [place] [id number] [address] [place] [address] Jan, Bipolar 1 disorder, mixed F3 1.60 [facility] [address] [id number] [address] [place] [address] Jan, Bipolar 1 disorder, mixed F3 1.60 [facility] [address] [facility] [id number] [address] [place] [address] Jan, Bipolar 1 disorder, mixed F3 1.60 ; Grief F43.20 and Other longterm (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 Z79.899 [facility] [address] [id number] [address] [place] [address] Jan, Bipolar 1 disorder, mixed F3 1.60 [facility] [address] [id number] [address] [place] [address] Dec, [facility] [address] [id number] [address] [place] [address] Dec, Bipolar 1 disorder, mixed F3 1.60 ; Vitamin D deficiency, unspecified E55.9 ; H/O allergic rhinitis Z87.09 ; Other chronic pain G89.29 and Dorsalgia, unspecified M54.9 [facility] [address] [facility] [id number] [address] [place] [address] Dec, [facility] [address] [facility] [id number] [address] [place] [address] Dec, Bipolar 1 disorder, mixed F3 1.60 [facility] [address] [facility] [id number] [address] [place] [address] Dec, Major depressive disorder, r ecurrent episode, moderate F33.1 [facility] [address] [id number] [address] [place] [address] Dec, Major depressive disorder, r ecurrent episode, moderate F33.1 [place] [address] [place] [id number] [address] [place] [address] Nov, [place] [address] [facility] [id number] [address] [place] [address] Nov, Bipolar 1 disorder, mixed F3 1.60 [facility] [address] [id number] [address] [place] [address] Nov, Major depressive disorder, r ecurrent episode, moderate F33.1 [place] [address] [facility] [id number] [address] [place] [address] Nov, Cervicalgia M54.2 ; Arthralg ia of hip, unspecified laterality M25.559 ; Allergic rhinitis J30.9 and Hormone replacement therapy Z79.890 [facility] [address] [facility] [id number] [address] [place] [address] Nov, Other seasonal allergic rhin itis J30.2 [facility] [address] [facility] [id number] [address] [place] [address] October, Major depressive disorder, r ecurrent episode, moderate F33.1 [place] [address] [facility] [id number] [address] [place] [address] October, Major depressive disorder, r ecurrent episode, moderate F33.1 and Arthralgia of hip, unspecified laterality M25.559 [place] [address] [facility] [id number] [address] [place] [address] October, Grief F43.20 ; Hypertension I10 ; Hyperlipidemia, unspecified hyperlipidemia type E78.5 ; Other chronic pain G89.29 and Allergic rhinitis, unspecified allergic rhinitis type J30.9 [place] [address] [facility] [id number] [address] [place] [address] October, Major depressive disorder, r ecurrent episode, moderate F33.1 [place] [address] [facility] [id number] [address] [place] [address] Sep, Major depressive disorder, r ecurrent episode, moderate F33.1 [place] [address] [facility] [id number] [address] [place] [address] Sep, [place] [address] [facility] [id number] [address] [place] [address] Sep, Major depressive disorder, r ecurrent episode, moderate F33.1 [place] [address] [place] [id number] [address] [place] [address] Sep, Grief F43.20 [place] [address] [facility] [id number] [address] [place] [address] Aug, Major depressive disorder, r ecurrent episode, moderate F33.1 [place] [address] [facility] [id number] [address] [place] [address] Aug, Bipolar 1 disorder, mixed F3 1.60 [place] [address] [facility] [id number] [address] [place] [address] Aug, Allergic rhinitis J30.9 ; Ce rvicalgia M54.2 and Low back pain M54.5 [place] [address] [facility] [id number] [address] [place] [address] Aug, Major depressive disorder, r ecurrent episode, moderate F33.1 [facility] [address] [facility] [id number] [address] [place] [address] Aug, Sinusitis J32.9 and Tobacco 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 [facility] [address] [facility] [id number] [address] [place] [address] Aug, [facility] [address] [id number] [address] [place] [address] Aug, Depressive disorder, not els ewhere classified F32.9 ; Hormone replacement therapy Z79.[address] scan, head R93.0 [facility] [address] [id number] [address] [place] [address] Aug, Major depressive disorder, r ecurrent episode, moderate F33.1 [facility] [address] [id number] [address] [place] [address] Jul, Major depressive disorder, r ecurrent episode, moderate F33.1 [facility] [address] [id number] [address] [place] [address] Jul, Abdominal pain R10.9 and Hyp ertension I10 [facility] [address] [address] [id number] [address] [place] [address] Jul, [facility] [address] [place] [id number] [address] [place] [address] Jul, Major depressive disorder, r ecurrent episode, moderate F33.1 [facility] [address] [facility] [id number] [address] [place] [address] Jul, [facility] [address] [id number] [address] [place] [address] Jul, [facility] [address] [id number] [address] [place] [address] Jun, [place] [address] [id number] [address] [place] [address] Jun, Depressive disorder, not els ewhere classified F32.9 [facility] [address] [id number] [address] [place] [address] Jun, [facility] [address] [facility] [id number] [address] [place] [address] Jun, [facility] [address] [facility] [id number] [address] [place] [address] Jun, Arthralgia of hip, unspecifi ed laterality M25.559 ; Bruising, spontaneous R23.3 and Night sweats R61 [facility] [address] [facility] [id number] [address] [place] [address] Jun, [facility] [address] [id number] [address] [place] [address] Jun, [facility] [address] [facility] [id number] [address] [place] [address] May, [facility] [address] [facility] [id number] [address] [place] [address] May, Myalgia M79.1 and Screening, lipid Z13.220 [facility] [address] [facility] [id number] [address] [place] [address] Apr, Status post cervical spinal fusion Z98.1 ; Fibromyalgia M79.7 and Unsteady gait R26.81 [facility] [address] [facility] [id number] [address] [place] [address] Nov, [facility] [address] [facility] [id number] [address] [place] [address] Nov, [facility] [address] [facility] [id number] [address] [place] [address] October, [facility] [address] [facility] [id number] [address] [place] [address] October, [facility] [address] [id number] [address] [place] [address] October, [facility] [address] [id number] [address] [place] [address] October, [facility] [address] [id number] [address] [place] [address] October, [facility] [address] [id number] [address] [place] [address] October, Dysuria 788.1 ; Nausea 787.0 2 and Urinary tract infection 599.0 [facility] [address] [id number] [address] [place] [address] Sep, [facility] [address] [id number] [address] [place] [address] Sep, [facility] [address] [id number] [address] [place] [address] Aug, [facility] [address] [id number] [address] [place] [address] Aug, [facility] [address] [id number] [address] [place] [address] Aug, [facility] [address] [id number] [address] [place] [address] Aug, [facility] [address] [id number] [address] [place] [address] Aug, [facility] [address] [id number] [address] [place] [address] Aug, [facility] [address] [id number] [address] [place] [address] Aug, [facility] [address] [id number] [address] [place] [address] Aug, [facility] [address] [id number] [address] [place] [address] Aug, [facility] [address] [id number] [facility] [place] [address] 18 Aug, 2014 [facility] [address] [id number] [address] [place] [address], [place] [address] 18 Aug, 2014 [facility] [address] [id number] [address] [place] [address], [place] [address] 13 Aug, 2014 [facility] [address] [id number] [address] [place] [address], [place] [address] 13 Aug, 2014 [facility] [address] [id number] [address] [place] [address], [place] [address] 11 Aug, 2014 [facility] [address] [id number] [address] [place] [address], [place] [address] 11 Aug, 2014 [facility] [address] [id number] [address] [place] [address], [place] [address] 06 Aug, 2014 [facility] [address] [id number] [address] [place] [address], [place] [address] 06 Aug, 2014 [facility] [address] [id number] [address] [place] [address], [place] [address] 05 Aug, 2014 [facility] [address] [id number] [address] [place] [address], [place] [address] 05 Aug, 2014 [facility] [address] [id number] [address] [place] [address], [place] [address] 04 Aug, 2014 [facility] [address] [id number] [address] [place] [address], [place] [address] Aug, [facility] [address] [id number] [address] [place] [address], [place] [address] Aug, [facility] [address] [id number] [address] [place] [address], [place] [address] Jul, [facility] [address] [id number] [address] [place] [address], [place] [address] Jul, [facility] [address] [id number] [address] [place] [address], [place] [address] Jul, 2014 [facility] [address] [id number] [address] [place] [address], [place] [address] Jul, 2014 [facility] [address] [id number] [address] [place] [address], [place] [address] Jul, 2014 [facility] [address] [id number] [address] [place] [address], [place] [address] Jul, 2014 [facility] [address] [id number] [address] [place] [address], [place] [address] Jul, 2014 [facility] [address] [id number] [address] [place] [address], [place] [address] Jul, 2014 [facility] [address] [id number] [address] [place] [address], [place] [address] Jul, 2014 [facility] [address] [id number] [address] [place] [address], [place] [address] Jul, 2014 [facility] [address] [id number] [address] [place] [address], [place] [address] Jul, [facility] [address] [id number] [address] [place] [address], [place] [address] Jul, [facility] [address] [id number] [address] [place] [address], [place] [address] Jul, [facility] [address] [id number] [address] [place] [address], [place] [address] Jul, [facility] [address] [id number] [address] [place] [address] Jun, [facility] [address] [id number] [address] [place] [address] Jun, [facility] [address] [id number] [address] [place] [address] Jun, [facility] [address] [id number] [address] [place] [address] Jun, [facility] [address] [id number] [address] [place] [address], [place] [address] Jun, [facility] [address] [id number] [address] [place] [address], [place] [address] Jun, [facility] [address] [id number] [address] [place] [address], [place] [address] May, [facility] [address] [id number] [address] [place] [address], [place] [address] May, [facility] [address] [id number] [address] [place] [address], [place] [address] May, [facility] [address] [id number] [address] [place] [address], [place] [address] May, [facility] [address] [id number] [address] [place] [address], [place] [address] May, [facility] [address] [id number] [address] [place] [address], [place] [address] May, [facility] [address] [id number] [address] [place] [address], [place] [address] Apr, [facility] [address] [id number] [address] [place] [address], [place] [address] Apr, [facility] [address] [id number] [address] [place] [address], [place] [address] Apr, [facility] [address] [id number] [address] [place] [address], [place] [address] Apr, [facility] [address] [id number] [address] [place] [address], [place] [address] Apr, [facility] [address] [id number] [address] [place] [address], [place] [address] Apr, [facility] [address] [id number] [address] [place] [address], [place] [address] Mar, [facility] [address] [id number] [address] [place] [address] Mar, [facility] [address] [id number] [address] [place] [address], [place] [address] Mar, [facility] [address] [id number] [address] [place] [address] Mar, [facility] [address] [id number] [address] [place] [address], [place] [address] Mar, 2013 [facility] [address] [id number] [address] [place] [id number] Mar, 2013 [facility] [address] [id number] [address] [place] [address], [place] [address] Mar, [facility] [address] [id number] [address] [place] [address], [place] [address] Mar, [facility] [address] [id number] [address] [place] [address], [place] [address] Mar, [facility] [address] [id number] [address] [place] [address] Mar, [facility] [address] [id number] [address] [place] [address] Mar, [facility] [address] [id number] [address] [place] [address], [place] [address] Mar, [facility] [address] [id number] [address] [place] [id number] 30 Feb, 2013 [facility] [address] [id number] [address] [place] [id number] 29 Feb, 2013 [facility] [address] [id number] [address] [place] [address], [place] [address] 29 Sep, 2013 [facility] [address] [id number] [address] [place] [address], [place] [address] 23 Feb, 2013 [facility] [address] [id number] [address] [place] [address], [place] [address] 23 Feb, 2013 [facility] [address] [id number] [facility] [place] [address] Feb, [facility] [address] [id number] [address] [place] [address], [place] [address] Feb, [facility] [address] [id number] [address] [place] [address], [place] [address] Jan, [facility] [address] [id number] [address] [place] [address], [place] [address] Jan, [facility] [address] [id number] [address] [place] [address], [place] [address] Jan, [facility] [address] [id number] [address] [place] [address], [place] [address] Dec, [facility] [address] [id number] [address] [place] [address], [place] [address] Dec, [facility] [address] [id number] [address] [place] [address], [place] [address] Dec, [facility] [address] [id number] [address] [place] [address], [place] [address] Dec, [facility] [address] [id number] [address] [place] [address], [place] [address] Sep, [facility] [address] [id number] [address] [place] [address], [place] [address] Sep, [facility] [address] [id number] [address] [place] [address], [place] [address] Sep, [facility] [address] [id number] [address] [place] [address], [place] [address] Sep, [facility] [address] [id number] [address] [place] [address], [place] [address] Sep, [facility] [address] [id number] [address] [place] [address], [place] [address] Sep, [facility] [address] [id number] [address] [place] [address], [place] [address] Sep, [facility] [address] [id number] [address] [place] [address], [place] [address] Sep, [facility] [address] [id number] [address] [place] [address], [place] [address] Aug, [facility] [address] [id number] [address] [place] [address], [place] [address] Aug, [facility] [address] [id number] [address] [place] [address], [place] [address] May, [facility] [address] [id number] [address] [place] [address], [place] [address] May, [facility] [address] [id number] [address] [place] [address], [place] [address] Apr, [facility] [address] [id number] [address] [place] [address], [place] [address] Apr, [facility] [address] [id number] [address] [place] [address], [place] [address] Apr, [facility] [address] [id number] [address] [place] [address], [place] [address] Apr, [facility] [address] [id number] [address] [place] [address], [place] [address] Apr, [facility] [address] [id number] [address] [place] [address], [place] [address] Apr, [facility] [address] [id number] [address] [place] [address], [place] [address] May, [facility] [address] [id number] [address] [place] [address], [place] [address] May, [facility] [address] [id number] [address] [place] [address], [place] [address] May, [facility] [address] [id number] [address] [place] [address], [place] [address] May, [facility] [address] [id number] [address] [place] [address] [place] [address] 13 May, 2012 [facility] [address] [id number] [address] [place] [address], [place] [address] 13 May, 2012 [facility] [address] [id number] [address] [place] [address], [place] [address] 13 Apr, 2012 [facility] [address] [id number] [address] [place] [address], [place] [address] Apr, [facility] [address] [id number] [address] [place] [address], [place] [address] 08 Apr, 2012 [facility] [address] [id number] [address] [place] [address], [place] [address] Apr, [facility] [address] [id number] [address] [place] [address], [place] [address] Apr, [facility] [address] [id number] [address] [place] [address], [place] [address] Apr, [facility] [address] [id number] [address] [place] [address], [place] [address] Apr, [facility] [address] [id number] [address] [place] [address], [place] [address] Apr, [facility] [address] [id number] [address] [place] [address], [place] [address] Apr, [facility] [address] [id number] [address] [place] [address], [place] [address] Apr, [facility] [address] [id number] [address] [place] [address] Mar, [facility] [address] [id number] [address] [place] [address], [place] [address] Mar, [facility] [address] [id number] [address] [place] [address], [place] [address] Mar, [facility] [address] [id number] [address] [place] [address] Mar, [facility] [address] [id number] [address] [place] [address], [place] [address] Mar, [facility] [address] [id number] [address] [place] [address], [place] [address] Mar, [facility] [address] [id number] [address] [place] [address], [place] [address] Mar, [facility] [address] [id number] [address] [place] [address], [place] [address] Mar, [facility] [address] [id number] [address] [place] [address], [place] [address] Mar, [facility] [address] [id number] [address] [place] [address], [place] [address] 25 Feb, 2012 [facility] [address] [id number] [address] [place] [address], [place] [address] 16 Feb, 2012 [facility] [address] [id number] [address] [place] [address], [place] [address] Feb, [facility] [address] [id number] [address] [place] [address], [place] [address] Jan, [facility] [address] [id number] [address] [place] [address], [place] [address] Jan, [facility] [address] [id number] [address] [place] [address], [place] [address] Jan, [facility] [address] [id number] [address] [place] [address], [place] [address] Jan, [facility] [address] [id number] [address] [place] [address], [place] [address] Jan, [facility] [address] [id number] [address] [place] [address], [place] [address] Jan, [facility] [address] [id number] [address] [place] [address], [place] [address] 16 Jan, 2012 [facility] [address] [id number] [address] [place] [address], [place] [address] Jan, [facility] [address] [id number] [address] [place] [address], [place] [address] Jan, [facility] [address] [id number] [address] [place] [address], [place] [address] Jan, [facility] [address] [id number] [address] [place] [address], [place] [address] Dec, [facility] [address] [id number] [address] [place] [address], [place] [address] Dec, [facility] [address] [id number] [address] [place] [address], [place] [address] Dec, [facility] [address] [id number] [address] [place] [address], [place] [address] Dec, [facility] [address] [id number] [address] [place] [address], [place] [address] Nov, [facility] [address] [id number] [address] [place] [address], [place] [address] Nov, [facility] [address] [id number] [address] [place] [address], [place] [address] Nov, [facility] [address] [id number] [address] [place] [address], [place] [address] October, [facility] [address] [id number] [address] [place] [address], [place] [address] October, [facility] [address] [id number] [address] [place] [address], [place] [address] October, [facility] [address] [id number] [address] [place] [address], [place] [address] October, [facility] [address] [id number] [address] [place] [address], [place] [address] October, [facility] [address] [id number] [address] [place] [address], [place] [address] October, [facility] [address] [id number] [address] [place] [address] Aug, [facility] [address] [id number] [address] [place] [address] Mar, [facility] [address] [id number] [address] [place] [address] Nov, [facility] [address] [id number] [address] [place] [address] May, [facility] [address] [facility] [id number] [address] [place] [address] May, [facility] [address] [facility] [id number] [address] [place] [address] Apr, [facility] [address] [facility] [id number] [address] [place] [address] Mar, [facility] [address] [facility] [id number] [address] [place] [address] Mar, IMMUNIZATIONS No Known Immunizations SOCIAL HISTORY Never Assessed REASON FOR VISIT Lab (walk-in) PLAN OF CARE VITAL SIGNS MEDICATIONS Unknown Medications RESULTS No Results PROCEDURES Procedure Date Ordered Result Body Site LAB NOT BILLED BY [facility] December 31, 2017 VENIPUNCT, ROUTINE* December 31, 2017 INSTRUCTIONS MEDICATIONS ADMINISTERED No [...]
--- OUTSIDE RECORDS SUMMARY | 2019-06-19 05:30 | XMS REPORT ---
Author Author Sydnie MORTON Organization [facility] Address [address] [place] [address] Care Team Providers Care Ux Design Manager Name Role Phone JOHN MORTON Unavailable PROBLEMS Type Condition ICD9-CM Code MJS21-IC Code Onset Dates Condition S tatus SNOMED Code Problem Hormone replacement therapy Z79.890 Ac tive 282217690 Problem Abnormal CT scan, head R93.0 Active 094630937 Problem Sensorineural hearing loss (SNHL) of both ears H90 .3 Active 866903169 Problem History of colon polyps Z86.010 Active 401688611 Problem Bruising, spontaneous R23.3 Active 417858624 Problem Generalized anxiety disorder F41.1 A ctive 04952220 Problem Arthralgia of hip, unspecified laterality M25.559 Active 54725534 Problem Hematuria, unspecified type R31.9 Ac tive 88778886 Problem Imbalance R26.89 Active 388902815 Problem Hammer toe of right foot M20.41 Activ e 770975680 Problem Plantar wart of right foot B07.0 Act mitchell [id number] Problem Sciatica of left side M54.32 Active 20299360 Problem Hyperlipidemia, unspecified hyperlipidemia type E7 8.5 Active 92378813 Problem Hypertension I10 Active 2501036 3 Problem Night sweats R61 Active 5437809 0 Problem Fibromyalgia M79.7 Active 0667134 7 Problem Major depressive disorder, recurrent episode, moderate F33.1 Active 121027091 Problem Acute left-sided low back pain with left-sided sciatica M54.42 Active 091708244 Problem Bladder spasm N32.89 Active 331860 006 Problem Gastritis without bleeding, unspecified chronicity, unspecified gastritis type K29.70 Active 625670198 Problem Bipolar 1 disorder, mixed F31.60 Acti ve 96669854 Problem Grief F43.20 Active 14974578 Problem Other chronic pain G89.29 Active 8 3361424 Problem Allergic rhinitis J30.9 Active 61 004662 Problem Hot flashes due to menopause N95.1 A ctive 110430329 Problem Ataxia R27.0 Active 70633024 Problem Hearing loss, unspecified laterality H91.90 Active 12793779 ALLERGIES No Information ENCOUNTERS Encounter Location Date Diagnosis [facility] [address] [id number] [place] [address] Mar, [facility] [address] [address] Mar, [facility] [id number] [place] [address] Feb, [place] [address] [address] Feb, [facility] [id number] [place] [address] Jan, Bipolar 1 disorder, mixed F3 1.60 [place] [address] [place] [id number] [place] [address] Jan, Low back pain M54.5 ; Hyperl ipidemia, unspecified hyperlipidemia type E78.5 and Bipolar 1 disorder, mixed F31.60 [place] [address] [place] [id number] [place] [address] Jan, Bipolar 1 disorder, mixed F3 1.60 [place] [address] [place] [id number] [place] [address] Jan, Bipolar 1 disorder, mixed F3 1.60 [place] [address] [place] [id number] [place] [address] Jan, Bipolar 1 disorder, mixed F3 1.60 [place] [address] [place] [id number] [place] [address] Jan, Bipolar 1 disorder, mixed F3 1.60 [facility] [id number] [place] [address] Dec, Bipolar 1 disorder, mixed F3 1.60 ; Generalized anxiety disorder F41.1 and Other custodial (current) drug therapy Z79.899 [facility] [id number] [place], [place] [address] Dec, Other custodial (current) dr bin therapy Z79.899 [facility] [address] [facility] [id number] [address] [place] [address] Dec, Bipolar 1 disorder, mixed F3 1.60 [facility] [address] [facility] [id number] [address] [place] [address] Dec, Bipolar 1 disorder, mixed F3 1.60 [facility] [address] [id number] [place] [address] Nov, Bipolar 1 disorder, mixed F3 1.60 [facility] [address] [id number] [place] [address] Nov, Bipolar 1 disorder, mixed F3 1.60 [facility] [id number] [place] [address] Nov, Bipolar 1 disorder, mixed F3 1.60 [facility] [id number] [place] [address] Nov, Allergic rhinitis J30.9 [facility] [id number] [place] [address] Nov, Allergic rhinitis J30.9 [facility] [address] [facility] [id number] [address] [place] [address] Nov, [facility] [address] [facility] [id number] [address] [place] [address] Nov, Bipolar 1 disorder, mixed F3 1.60 [facility] [id number] [place] [address] Nov, Fibromyalgia M79.7 and Aller gic rhinitis J30.9 [facility] [address] [facility] [id number] [address] [place] [address] October, Bipolar 1 disorder, mixed F3 1.60 [facility] [address] [facility] [id number] [address] [place] [address] October, Acute nasopharyngitis J00 [facility] [address] [facility] [id number] [address] [place] [address] October, Bitten or stung by nonvenomo us insect and other nonvenomous arthropods, initial encounter W57.XXXA and Insect bite (nonvenomous) of abdominal wall, initial encounter S30.861A [facility] [address] [facility] [id number] [address] [place] [address] October, Insect bite (nonvenomous) of abdominal wall, initial encounter S30.861A ; Bitten or stung by nonvenomous insect and other nonvenomous arthropods, initial encounter W57.XXXA ; Allergic rhinitis J30.9 and Low back pain M54.5 [facility] [address] [facility] [id number] [address] [place] [address] October, Bipolar 1 disorder, mixed F3 1.60 [facility] [address] [facility] [id number] [address] [place] [address] October, [facility] [address] [facility] [id number] [address] [place] [address] October, [facility] [address] [facility] [id number] [address] [place] [address] October, Bipolar 1 disorder, mixed F3 1.60 [facility] [address] [facility] [id number] [address] [place] [address] Sep, Bipolar 1 disorder, mixed F3 1.60 [facility] [address] [facility] [id number] [address] [place] [address] Sep, Other chronic pain G89.29 [facility] [address] [facility] [id number] [address] [place] [address] Sep, [facility] [address] [facility] [id number] [address] [place] [address] Sep, Bipolar 1 disorder, mixed F3 1.60 [facility] [id number] [place] [address] Sep, Allergic rhinitis J30.9 and Sciatica of left side M54.32 [facility] [id number] [place] [address] Sep, Bipolar 1 disorder, mixed F3 1.60 [facility] [id number] [place] [address] Sep, Bipolar 1 disorder, mixed F3 1.60 and Generalized anxiety disorder F41.1 [facility] [id number] [place] [address] Aug, [facility] [id number] [place] [address] Aug, Bipolar 1 disorder, mixed F3 1.60 [facility] [id number] [place] [address] Aug, Bipolar 1 disorder, mixed F3 1.60 [facility] [id number] [place] [address] Aug, [facility] [id number] [place] [address] Aug, Generalized anxiety disorder F41.1 [facility] [id number] [place] [address] Aug, Bipolar 1 disorder, mixed F3 1.60 [facility] [address] [facility] [id number] [address] [place] [address] Aug, Plantar wart of right foot B 07.0 [facility] [address] [facility] [id number] [address] [place] [address] Aug, Bipolar 1 disorder, mixed F3 1.60 [facility] [id number] [place] [address] Jul, Bipolar 1 disorder, mixed F3 1.60 [facility] [address] [facility] [id number] [address] [place] [address] Jul, [facility] [address] [facility] [id number] [address] [place] [address] 14 Jul, 2017 Bipolar 1 disorder, mixed F3 1.60 [facility] [address] [facility] [id number] [address] [place] [address] Jul, Generalized anxiety disorder F41.1 [facility] [address] [facility] [id number] [address] [place] [address] 07 Jul, 2017 Bipolar 1 disorder, mixed F3 1.60 [facility] [address] [facility] [id number] [address] [place] [address] 07 Jul, 2017 Acute left-sided low back pa in with left-sided sciatica M54.42 [facility] [address] [facility] [id number] [address] [place] [address] Jul, Coccydynia M53.3 [facility] [address] [facility] [id number] [address] [place] [address] Jun, Bipolar 1 disorder, mixed F3 1.60 [facility] [address] [facility] [id number] [address] [place] [address] Jun, Acute nasopharyngitis J00 [facility] [address] [facility] [id number] [address] [place] [address] Jun, Bipolar 1 disorder, mixed F3 1.60 [facility] [address] [facility] [id number] [address] [place] [address] Jun, Fibromyalgia M79.7 [facility] [address] [facility] [id number] [address] [place] [address] Jun, Bipolar 1 disorder, mixed F3 1.60 [facility] [address] [facility] [id number] [address] [place] [address] Jun, Fibromyalgia M79.7 and Bipol ar 1 disorder, mixed F31.60 [place] [id number] [address] May, Bipolar 1 disorder, mixed F3 1.60 ; Generalized anxiety disorder F41.1 and Other custodial (current) drug therapy Z79.899 [place] [id number] [place] [address] May, Bipolar 1 disorder, mixed F3 1.60 [facility] [address] [address] 14 May, 2017 Cough R05 and Body aches R52 [facility] [place] [address] [address] 10 May, 2017 Bladder spasm N32.89 and Acu te cystitis without hematuria N30.00 [place] [address] [address] 07 May, 2017 Bipolar 1 disorder, mixed F3 1.60 [place] [address] [address] Apr, [place] [address] [address] Apr, Major depressive disorder, r ecurrent episode, moderate F33.1 and Encounter for immunization Z23 [place] [address] [place] [address] Apr, Bipolar 1 disorder, mixed F3 1.60 [place] [address] [place] [address] Apr, Bipolar 1 disorder, mixed F3 1.60 [place] [address] [address] 16 Apr, 2017 Bipolar 1 disorder, mixed F3 1.60 [place] [address] [place] [id number] [place] [address] Apr, Yeast vaginitis B37.3 [place] [address] [facility] [id number] [address] [place] [address] 09 Apr, 2017 Bipolar 1 disorder, mixed F3 1.60 [facility] [address] [facility] [id number] [address] [place] [address] Apr, Encounter for immunization Z 23 and Cellulitis L03.90 [facility] [address] [facility] [id number] [address] [place] [address] Apr, Bipolar 1 disorder, mixed F3 1.60 [facility] [address] [facility] [id number] [address] [place] [address] Mar, Bipolar 1 disorder, mixed F3 1.60 [facility] [id number] [place] [address] Mar, Bipolar 1 disorder, mixed F3 1.60 [facility] [id number] [place] [address] Mar, Imbalance R26.89 and Encount er for immunization Z23 [facility] [address] [facility] [id number] [address] [place] [address] Mar, Generalized anxiety disorder F41.1 [facility] [id number] [place] [address] Mar, Bipolar 1 disorder, mixed F3 1.60 [facility] [id number] [place] [address] Mar, Generalized anxiety disorder F41.1 [facility] [address] [facility] [id number] [address] [place] [address] Mar, Bipolar 1 disorder, mixed F3 1.60 [facility] [id number] [place] [address] Mar, Bipolar 1 disorder, mixed F3 1.60 [facility] [id number] [place] [address] Feb, Bipolar 1 disorder, mixed F3 1.60 [facility] [address] [address] 25 Feb, 2017 Bipolar 1 disorder, mixed F3 1.60 and Generalized anxiety disorder F41.1 [place] [address] [address] 21 Feb, 2017 Gastritis without bleeding, unspecified chronicity, unspecified gastritis type K29.70 ; Hammer toe of right foot M20.41 and Other viral warts B07.8 [place] [address] [address] 20 Feb, 2017 Bipolar 1 disorder, mixed F3 1.60 [place] [address] [address] 13 Feb, 2017 Bipolar 1 disorder, mixed F3 1.60 [place] [address] [address] 05 Feb, 2017 Bipolar 1 disorder, mixed F3 1.60 [place] [address] [address] Jan, Encounter for screening mamm ogram for breast cancer Z12.31 ; Other viral warts B07.8 and Allergic rhinitis J30.9 [place] [address] [address] Jan, Bipolar 1 disorder, mixed F3 1.60 [place] [address] [address] Jan, Bipolar 1 disorder, mixed F3 1.60 [place] [address] [address] Jan, [place] [address] [address] Jan, Bipolar 1 disorder, mixed F3 1.60 [place] [address] [address] Jan, Bipolar 1 disorder, mixed F3 1.60 [place] [address] [place] [id number] [place] [address] Jan, Allergic rhinitis J30.9 ; He maturia R31.9 and Colon cancer screening Z12.11 [place] [address] [place] [id number] [place] [address] Dec, Bipolar 1 disorder, mixed F3 1.60 [place] [address] [place] [id number] [place] [address] Dec, Bipolar 1 disorder, mixed F3 1.60 ; Generalized anxiety disorder F41.1 and 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 [place] [address] [address] Dec, Bipolar 1 disorder, mixed F3 1.60 [place] [address] [address] Dec, Bipolar 1 disorder, mixed F3 1.60 [place] [address] [place] [id number] [place] [address] Dec, Bipolar 1 disorder, mixed F3 1.60 [place] [address] [address] Dec, Low back pain M54.5 and Recu rrent urinary tract infection N39.0 [place] [address] [place] [id number] [place] [address] Nov, Bipolar 1 disorder, mixed F3 1.60 [place] [address] [place] [id number] [place] [address] Nov, Bipolar 1 disorder, mixed F3 1.60 [place] [address] [place] [id number] [place] [address] Nov, Bipolar 1 disorder, mixed F3 1.60 [place] [address] [place] [id number] [place] [address] Nov, Bipolar 1 disorder, mixed F3 1.60 [place] [address] [address] Nov, [place] [address] [address] Nov, Anesthesia of skin R20.0 ; F requent UTI N39.0 ; Tobacco abuse Z72.0 and Colon cancer screening Z12.11 [place] [address] [address] Nov, Bipolar 1 disorder, mixed F3 1.60 [place] [address] [address] October, Bipolar 1 disorder, mixed F3 1.60 [place] [address] [address] October, Bipolar 1 disorder, mixed F3 1.60 [place] [address] [address] October, Bipolar 1 disorder, mixed F3 1.60 [place] [address] [address] October, Bipolar 1 disorder, mixed F3 1.60 [place] [address] [address] October, Bipolar 1 disorder, mixed F3 1.60 [place] [address] [address] October, Cervicalgia M54.2 and Bipola r 1 disorder, mixed F31.60 [place] [address] [address] October, Hypertension I10 ; Hyperlipi demia, unspecified hyperlipidemia type E78.5 and Family history of thyroid disease Z83.49 [place] [address] [address] October, [place] [address] [address] October, Hypertension I10 ; Hyperlipi demia, unspecified hyperlipidemia type E78.5 and Family history of thyroid problem Z83.49 [place] [address] [place] [id number] [place] [address] October, Bipolar 1 disorder, mixed F3 1.60 [place] [address] [place] [id number] [place] [address] Sep, Bipolar 1 disorder, mixed F3 1.60 [place] [address] [place] [id number] [place] [address] Sep, Bipolar 1 disorder, mixed F3 1.60 [place] [address] [place] 8[address] Sep, Bipolar 1 disorder, mixed F3 1.60 [place] [address] [address] Sep, History of colon polyps Z86. 010 and Hematochezia K92.1 [place] [address] [place] [id number] [place] [address] Sep, Major depressive disorder, r ecurrent episode, moderate F33.1 [place] [address] [place] [id number] [place] [address] Sep, Bipolar 1 disorder, mixed F3 1.60 [place] [address] [place] [address] Aug, Hot flashes due to menopause N95.1 [facility] [address] [place] [id number] [place] [address] Aug, Bipolar 1 disorder, mixed F3 1.60 [place] [address] [place] [id number] [place] [address] Aug, [place] [address] [place] [id number] [place] [address] Aug, Bipolar 1 disorder, mixed F3 1.60 [place] [address] [address] Aug, Bipolar 1 disorder, mixed F3 1.60 [place] [address] [place] [address] Aug, Hot flashes due to menopause N95.1 ; Cervicalgia M54.2 and Ataxia R27.0 [place] [address] [address] Jul, Bipolar 1 disorder, mixed F3 1.60 [place] [address] [address] Jul, Bipolar 1 disorder, mixed F3 1.60 [place] [address] Jul, Bipolar 1 disorder, mixed F3 1.60 [place] [address] [address] Jul, Bipolar 1 disorder, mixed F3 1.60 [place] [address] [address] Jul, Bipolar 1 disorder, mixed F3 1.60 [place] [address] [address] Jul, Cervicalgia M54.2 ; Tremor R 25.1 ; Hearing abnormally acute, unspecified laterality H93.239 ; Alopecia L65.9 ; Encounter for immunization Z23 and Family history of thyroid disease Z83.49 [place] [address] [address] Jul, Bipolar 1 disorder, mixed F3 1.60 [place] [address] [place] [address] Jun, [place] [address] [address] Jun, Hearing disorder, unspecifie d laterality H93.299 [place] [address] [place] [address] [place] [address] Jun, Bipolar 1 disorder, mixed F3 1.60 [facility] [address] [facility] [id number] [address] [place] [address] Jun, Bipolar 1 disorder, mixed F3 1.60 [facility] [address] [facility] [id number] [address] [place] [address] Jun, Allergic rhinitis J30.9 [facility] [address] [facility] [id number] [address] [place] [address] Jun, Bipolar 1 disorder, mixed F3 1.60 [facility] [address] [facility] [id number] [address] [place] [address] Jun, Bipolar 1 disorder, mixed F3 1.60 [facility] [address] [facility] [id number] [address] [place] [address] Jun, Allergic rhinitis J30.9 [facility] [address] [facility] [id number] [address] [place] [address] Jun, Allergic rhinitis J30.9 [facility] [address] [facility] [id number] [address] [place] [phone] Jun, Bipolar 1 disorder, mixed F3 1.60 [facility] [address] [facility] [id number] [address] [place] [id number] May, Bipolar 1 disorder, mixed F3 1.60 [facility] [address] [facility] [id number] [address] [place] [phone] May, Bipolar 1 disorder, mixed F3 1.60 [facility] [address] [facility] [id number] [address] [place] [phone] May, [facility] [address] [facility] [id number] [address] [place] [id number] May, Bipolar 1 disorder, mixed F3 1.60 [facility] [address] [facility] [id number] [address] [place] [phone] May, Bipolar 1 disorder, mixed F3 1.60 [facility] [address] [facility] [id number] [address] [place] [phone] May, [facility] [address] [place] [id number] [place] [phone] May, [facility] [address] [place] [id number] [place] [phone] May, [facility] [address] [place] [id number] [place] [phone] May, Abdominal pain, unspecified location R10.9 [facility] [address] [place] [id number] [place] [phone] May, [facility] [address] [place] [id number] [place] [phone] Apr, Hematuria R31.9 ; Ataxia R27 .0 and Hearing loss, unspecified laterality H91.90 [facility] [address] [place] [id number] [place] [phone] Apr, Bipolar 1 disorder, mixed F3 1.60 [facility] [address] [id number] [place] [address] Apr, Acute effusion of both middl e ears H65.193 [facility] [address] [id number] [address] [place] [id number] Apr, Hematuria R31.9 and Pyelonep hritis N12 [facility] [address] [facility] [id number] [address] [place] [address] Apr, [facility] [address] [facility] [id number] [address] [place] [address] Mar, Bipolar 1 disorder, mixed F3 1.60 [facility] [address] [id number] [address] [place] [address] Mar, [facility] [address] [id number] [address] [place] [address] Mar, Bipolar 1 disorder, mixed F3 1.60 [place] [address] [place] [id number] [address] [place] [address] Mar, Bipolar 1 disorder, mixed F3 1.60 [place] [address] Mar, Encounter for immunization Z 23 and Gastritis without bleeding, unspecified chronicity, unspecified gastritis type K29.70 [place] [address] Mar, Bipolar 1 disorder, mixed F3 1.60 and Grief F43.20 [place] [address] Mar, Gastritis without bleeding, unspecified chronicity, unspecified gastritis type K29.70 [place] [address] Mar, Bipolar 1 disorder, mixed F3 1.60 [place] [address] Mar, Gastritis without bleeding, unspecified chronicity, unspecified gastritis type K29.70 [place] [address] Mar, [place] [address] [place] [address] Feb, Bipolar 1 disorder, mixed F3 1.60 [place] [address] [place] [address] Feb, Bipolar 1 disorder, mixed F3 1.60 and Grief F43.20 [place] [address] [place] [address] Feb, Gastritis without bleeding, unspecified chronicity, unspecified gastritis type K29.70 [place] [address] [place] [id number] [address] [place], [place] [address] 14 Feb, 2016 Bipolar 1 disorder, mixed F3 1.60 [facility] [address] [facility] [id number] [address] [place] [address] Feb, Gastroesophageal reflux dise ase, esophagitis presence not specified K21.9 [facility] [address] [facility] [id number] [address] [place] [address] Jan, Bipolar 1 disorder, mixed F3 1.60 [facility] [address] [id number] [address] [place] [address] Jan, Bipolar 1 disorder, mixed F3 1.60 and Unsteady gait R26.81 [facility] [address] [facility] [id number] [address] [place] [address] Jan, Bipolar 1 disorder, mixed F3 1.60 [facility] [address] [id number] [address] [place] [address] Jan, Bipolar 1 disorder, mixed F3 1.60 and 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 [place] [id number] [place] [id number] [address] [place] [address] Jan, Bipolar 1 disorder, mixed F3 1.60 [facility] [id number] [address] [place] [address] Jan, Bipolar 1 disorder, mixed F3 1.60 [facility] [id number] [place] [address] Jan, Bipolar 1 disorder, mixed F3 1.60 ; Grief F43.20 and Other custodial (current) drug therapy Z79.899 [facility] [address] [facility] [id number] [address] [place] [address] Jan, Bipolar 1 disorder, mixed F3 1.60 [facility] [id number] [place] [address] Dec, [facility] [id number] [place] [address] Dec, Bipolar 1 disorder, mixed F3 1.60 ; Vitamin D deficiency, unspecified E55.9 ; H/O allergic rhinitis Z87.09 ; Other chronic pain G89.29 and Dorsalgia, unspecified M54.9 [place] [address] [place] [id number] [place] [address] Dec, [facility] [id number] [address] [place] [address] Dec, Bipolar 1 disorder, mixed F3 1.60 [facility] [id number] [place] [address] Dec, Major depressive disorder, r ecurrent episode, moderate F33.1 [place] [address] [address] Dec, Major depressive disorder, r ecurrent episode, moderate F33.1 [place] [address] [address] Nov, [place] [address] [address] Nov, Bipolar 1 disorder, mixed F3 1.60 [place] [address] [address] Nov, Major depressive disorder, r ecurrent episode, moderate F33.1 [place] [id number] [place] [address] Nov, Cervicalgia M54.2 ; Arthralg ia of hip, unspecified laterality M25.559 ; Allergic rhinitis J30.9 and Hormone replacement therapy Z79.890 [facility] [address] [facility] [id number] [address] [place] [address] Nov, Other seasonal allergic rhin itis J30.2 [facility] [id number] [address] [place] [address] October, Major depressive disorder, r ecurrent episode, moderate F33.1 [facility] [address] [id number] [address] [place] [address] October, Major depressive disorder, r ecurrent episode, moderate F33.1 and Arthralgia of hip, unspecified laterality M25.559 [place] [address] [address] October, Grief F43.20 ; Hypertension I10 ; Hyperlipidemia, unspecified hyperlipidemia type E78.5 ; Other chronic pain G89.29 and Allergic rhinitis, unspecified allergic rhinitis type J30.9 [place] [address] [address] October, Major depressive disorder, r ecurrent episode, moderate F33.1 [place] [address] [address] Sep, Major depressive disorder, r ecurrent episode, moderate F33.1 [place] [address] [address] Sep, [place] [address] [address] Sep, Major depressive disorder, r ecurrent episode, moderate F33.1 [place] [address] [address] Sep, Grief F43.20 [place] [address] [place] [id number] [address] [place] [address] Aug, Major depressive disorder, r ecurrent episode, moderate F33.1 [place] [address] [place] [id number] [address] [place] [address] Aug, Bipolar 1 disorder, mixed F3 1.60 [place] [address] [place] [id number] [place] [address] Aug, Allergic rhinitis J30.9 ; Ce rvicalgia M54.2 and Low back pain M54.5 [place] [address] [place] [id number] [place] [address] Aug, Major depressive disorder, r ecurrent episode, moderate F33.1 [facility] [address] [id number] [address] [place] [address] Aug, Sinusitis J32.9 and Tobacco 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 [facility] [address] [id number] [address] [place] [address] Aug, [facility] [address] [facility] [id number] [address] [place] [address] Aug, Depressive disorder, not els ewhere classified F32.9 ; Hormone replacement therapy Z79.[address] scan, head R93.0 [facility] [address] [id number] [address] [place] [address] Aug, Major depressive disorder, r ecurrent episode, moderate F33.1 [facility] [address] [facility] [id number] [address] [place] [address] Jul, Major depressive disorder, r ecurrent episode, moderate F33.1 [facility] [address] [id number] [address] [place] [address] Jul, Abdominal pain R10.9 and Hyp ertension I10 [facility] [address] [id number] [address] [place] [address] Jul, [facility] [address] [facility] [id number] [address] [place] [address] Jul, Major depressive disorder, r ecurrent episode, moderate F33.1 [facility] [address] [facility] [id number] [address] [place] [address] Jul, [facility] [address] [id number] [address] [place] [address] Jul, [facility] [address] [facility] [id number] [address] [place] [address] Jun, [facility] [address] [facility] [id number] [address] [place] [address] Jun, Depressive disorder, not els ewhere classified F32.9 [facility] [address] [id number] [address] [place] [address] Jun, [facility] [address] [id number] [address] [place] [address] Jun, [facility] [address] [id number] [address] [place] [address] Jun, Arthralgia of hip, unspecifi ed laterality M25.559 ; Bruising, spontaneous R23.3 and Night sweats R61 [facility] [address] [id number] [address] [place] [address] Jun, [facility] [address] [id number] [address] [place] [address] Jun, [facility] [address] [id number] [address] [place] [address] May, [facility] [address] [id number] [address] [place] [address] May, Myalgia M79.1 and Screening, lipid Z13.220 [facility] [address] [id number] [address] [place] [address] Apr, Status post cervical spinal fusion Z98.1 ; Fibromyalgia M79.7 and Unsteady gait R26.81 [facility] [address] [id number] [address] [place] [address] Nov, [facility] [address] [id number] [address] [place] [address] Nov, [facility] [address] [id number] [address] [place] [address] October, [facility] [address] [id number] [address] [place] [address] October, [facility] [address] [id number] [address] [place] [id number] October, [facility] [address] [id number] [address] [place] [address] October, [facility] [address] [id number] [address] [place] [address] October, [facility] [address] [id number] [address] [place] [address] October, Dysuria 788.1 ; Nausea 787.0 2 and Urinary tract infection 599.0 [facility] [address] [id number] [address] [place] [address] Sep, [facility] [address] [id number] [address] [place] [address] Sep, [facility] [address] [id number] [address] [place] [address] Aug, [facility] [address] [id number] [address] [place] [address] Aug, [facility] [address] [id number] [address] [place] [address] Aug, [facility] [address] [id number] [address] [place] [address] Aug, [facility] [address] [id number] [address] [place] [address] Aug, [facility] [address] [id number] [address] [place] [address] Aug, [facility] [address] [id number] [address] [place] [address] Aug, [facility] [address] [id number] [address] [place] [address] Aug, [facility] [address] [id number] [address] [place] [address] Aug, [facility] [address] [id number] [address] [place] [address] Aug, [facility] [address] [id number] [address] [place] [address], [place] [address] 18 Aug, 2014 [facility] [address] [id number] [address] [place] [address], [place] [address] 13 Aug, 2014 [facility] [address] [id number] [address] [place] [address], [place] [id number] 13 Aug, 2014 [facility] [address] [id number] [address] [place] [address], [place] [address] 11 Aug, 2014 [facility] [address] [id number] [address] [place] [address], [place] [id number] 11 Aug, 2014 [facility] [address] [id number] [address] [place] [address], [place] [address] 06 Aug, 2014 [facility] [address] [id number] [address] [place] [address], [place] [id number] 06 Aug, 2014 [facility] [address] [id number] [address] [place] [address], [place] [address] 05 Aug, 2014 [facility] [address] [id number] [address] [place] [address], [place] [id number] 05 Aug, 2014 [facility] [address] [id number] [address] [place] [address], [place] [address] Aug, [facility] [address] [id number] [address] [place] [address], [place] [address] Aug, [facility] [address] [id number] [address] [place] [address], [place] [address] Aug, [facility] [address] [id number] [address] [place] [address], [place] [address] Jul, [facility] [address] [id number] [address] [place] [address], [place] [address] Jul, [facility] [address] [id number] [address] [place] [address], [place] [address] Jul, [facility] [address] [id number] [address] [place] [address], [place] [address] Jul, 2014 [facility] [address] [id number] [address] [place] [address], [place] [address] Jul, [facility] [address] [id number] [address] [place] [address], [place] [address] Jul, 2014 [facility] [address] [id number] [address] [place] [address], [place] [address] Jul, 2014 [facility] [address] [id number] [address] [place] [address], [place] [address] Jul, 2014 [facility] [address] [id number] [address] [place] [address], [place] [address] Jul, 2014 [facility] [address] [id number] [address] [place] [address], [place] [address] Jul, 2014 [facility] [address] [id number] [address] [place] [address], [place] [address] Jul, 2014 [facility] [address] [id number] [address] [place] [address], [place] [address] Jul, [facility] [address] [id number] [address] [place] [address], [place] [address] Jul, [facility] [address] [id number] [address] [place] [address], [place] [address] Jul, [facility] [address] [id number] [address] [place] [address], [place] [address] Jun, [facility] [address] [id number] [address] [place] [address], [place] [address] Jun, [facility] [address] [id number] [address] [place] [address] Jun, [facility] [address] [id number] [address] [place] [address], [place] [address] Jun, [facility] [address] [id number] [address] [place] [address] Jun, [facility] [address] [id number] [address] [place] [address], [place] [address] Jun, [facility] [address] [id number] [address] [place] [address], [place] [id number] May, [facility] [address] [id number] [address] [place] [address], [place] [address] May, [facility] [address] [id number] [address] [place] [address], [place] [address] May, [facility] [address] [id number] [address] [place] [address], [place] [address] May, [facility] [address] [id number] [address] [place] [address], [place] [address] May, [facility] [address] [id number] [address] [place] [address], [place] [address] May, [facility] [address] [id number] [address] [place] [address], [place] [address] Apr, [facility] [address] [id number] [address] [place] [address], [place] [address] Apr, [facility] [address] [id number] [address] [place] [address], [place] [address] Apr, [facility] [address] [id number] [address] [place] [address], [place] [address] Apr, [facility] [address] [id number] [address] [place] [address], [place] [id number] Apr, [facility] [address] [id number] [address] [place] [address], [place] [address] Apr, [facility] [address] [id number] [address] [place] [address], [place] [address] Mar, [facility] [address] [id number] [address] [place] [address], [place] [address] Mar, [facility] [address] [id number] [address] [address] Mar, [facility] [address] [id number] [address] [place] [address], [place] [address] Mar, 2013 [facility] [address] [id number] [address] [place] [address], [place] [address] Mar, 2013 [facility] [address] [id number] [address] [place] [address], [place] [address] Mar, 2013 [facility] [address] [id number] [address] [place] [address] Mar, 2013 [facility] [address] [id number] [address] [place] [address], [place] [address] Mar, 2013 [facility] [address] [id number] [address] [place] [address], [place] [address] Mar, 2013 [facility] [address] [id number] [address] [place] [address], [place] [address] Mar, 2013 [facility] [address] [id number] [address] [place] [address], [place] [address] Mar, [facility] [address] [id number] [address] [place] [address], [place] [address] Mar, [facility] [address] [id number] [address] [place] [address], [place] [address] 30 Feb, 2013 [facility] [address] [id number] [address] [place] [id number] 29 Sep, 2013 [facility] [address] [id number] [address] [place] [id number] 29 Sep, 2013 [facility] [address] [id number] [address] [place] [address], [place] [address] 23 Sep, 2013 [facility] [address] [id number] [address] [place] [address], [place] [address] 23 Feb, 2013 [facility] [address] [id number] [address] [place] [address], [place] [id number] 08 Feb, 2013 [facility] [address] [id number] [facility] [place] [address] Feb, [facility] [address] [id number] [address] [place] [address], [place] [id number] Jan, [facility] [address] [id number] [address] [place] [address], [place] [address] Jan, [facility] [address] [id number] [address] [place] [address], [place] [address] Jan, [facility] [address] [id number] [address] [place] [address], [place] [address] Dec, [facility] [address] [id number] [address] [place] [address], [place] [id number] Dec, [facility] [address] [id number] [address] [place] [address], [place] [id number] Dec, [facility] [address] [id number] [address] [place] [address], [place] [id number] Dec, [facility] [address] [id number] [address] [place] [address], [place] [id number] Sep, [facility] [address] [id number] [address] [place] [address], [place] [id number] Sep, [facility] [address] [id number] [address] [place] [address], [place] [id number] Sep, [facility] [address] [id number] [address] [place] [address], [place] [id number] Sep, [facility] [address] [id number] [address] [place] [address], [place] [id number] Sep, [facility] [address] [id number] [address] [place] [address], [place] [id number] Sep, [facility] [address] [id number] [address] [place] [address], [place] [id number] Sep, [facility] [address] [id number] [address] [place] [address], [place] [id number] Sep, [facility] [address] [id number] [address] [place] [address], [place] [id number] Aug, [facility] [address] [id number] [address] [place] [address], [place] [id number] Aug, [facility] [address] [id number] [address] [place] [address], [place] [id number] May, [facility] [address] [id number] [address] [place] [address], [place] [id number] May, [facility] [address] [id number] [address] [place] [address], [place] [id number] Apr, [facility] [address] [id number] [address] [place] [address], [place] [id number] Apr, [facility] [address] [id number] [address] [place] [address], [place] [id number] Apr, [facility] [address] [id number] [address] [place] [address], [place] [id number] Apr, [facility] [address] [id number] [address] [place] [address], [place] [id number] Apr, [facility] [address] [id number] [address] [place] [address], [place] [id number] Apr, [facility] [address] [id number] [address] [place] [address], [place] [id number] May, [facility] [address] [id number] [address] [place] [id number] 18 May, 2012 [facility] [address] [id number] [address] [place] [address], [place] [id number] 15 May, 2012 [facility] [address] [id number] [address] [place] [address], [place] [id number] 15 May, 2012 [facility] [address] [id number] [address] [place] [address], [place] [id number] 13 May, 2012 [facility] [address] [id number] [address] [place] [id number] May, [facility] [address] [id number] [address] [place] [address], [place] [id number] 13 Apr, 2012 [facility] [address] [id number] [address] [place] [id number] 13 Apr, 2012 [facility] [address] [id number] [address] [place] [address], [place] [id number] 08 Apr, 2012 [facility] [address] [id number] [address] [place] [address], [place] [id number] 08 Apr, 2012 [facility] [address] [id number] [address] [place] [address], [place] [id number] Apr, [facility] [address] [id number] [address] [place] [address], [place] [id number] Apr, [facility] [address] [address] [id number] [address] [place] [address], [place] [id number] Apr, [facility] [address] [id number] [address] [place] [address], [place] [id number] Apr, [facility] [address] [id number] [address] [place] [address], [place] [id number] Apr, [facility] [address] [id number] [address] [place] [address], [place] [id number] Apr, [facility] [address] [id number] [address] [place] [id number] Mar, [facility] [address] [id number] [address] [place] [id number] Mar, [facility] [address] [id number] [address] [place] [address], [place] [id number] Mar, [facility] [address] [id number] [address] [place] [address], [place] [id number] Mar, [facility] [address] [id number] [address] [place] [address], [place] [id number] Mar, [facility] [address] [id number] [address] [place] [address], [place] [id number] Mar, [facility] [address] [id number] [address] [place] [address], [place] [id number] Mar, [facility] [address] [id number] [address] [place] [address], [place] [id number] Mar, [facility] [address] [id number] [address] [place] [address], [place] [id number] Mar, [facility] [address] [id number] [address] [place] [address], [place] [id number] 25 Feb, 2012 [facility] [address] [id number] [address] [place] [address], [place] [id number] 16 Feb, 2012 [facility] [address] [id number] [address] [place] [address], [place] [id number] Feb, [facility] [address] [id number] [address] [place] [address], [place] [id number] Jan, [facility] [address] [id number] [address] [place] [address], [place] [id number] Jan, [facility] [address] [id number] [address] [place] [address], [place] [id number] Jan, [facility] [address] [id number] [address] [place] [address], [place] [id number] Jan, [facility] [address] [id number] [address] [place] [address], [place] [id number] Jan, [facility] [address] [id number] [address] [place] [address], [place] [id number] Jan, [facility] [address] [id number] [address] [place] [address], [place] [id number] 16 Jan, 2012 [facility] [address] [id number] [address] [place] [address], [place] [id number] 15 Jan, 2012 [facility] [address] [id number] [address] [place] [address], [place] [id number] Jan, [facility] [address] [id number] [address] [place] [address], [place] [id number] Jan, [facility] [address] [id number] [address] [place] [address], [place] [id number] Dec, [facility] [address] [id number] [address] [place] [address], [place] [id number] Dec, [facility] [address] [id number] [address] [place] [address], [place] [id number] Dec, [facility] [address] [id number] [address] [place] [address], [place] [id number] Dec, [facility] [address] [id number] [address] [place] [address], [place] [id number] Nov, [facility] [address] [id number] [address] [place] [address], [place] [id number] Nov, [facility] [address] [id number] [address] [place] [address], [place] [id number] Nov, [facility] [address] [id number] [address] [place] [address], [place] [id number] October, [facility] [address] [id number] [address] [place] [address], [place] [id number] October, [facility] [address] [id number] [address] [place] [address], [place] [id number] October, [facility] [address] [id number] [address] [place] [address], [place] [id number] October, [facility] [address] [id number] [address] [place] [address], [place] [id number] October, [facility] [address] [id number] [address] [place] [address], [place] [id number] October, [facility] [address] [id number] [address] [place] [address], [place] [id number] Aug, [facility] [address] [id number] [address] [place] [id number] 10 Mar, 2011 [facility] [address] [facility] [id number] [address] [place] [id number] 16 Nov, 2010 [facility] [address] [facility] [id number] [address] [place] [id number] May, [facility] [address] [facility] [id number] [address] [place] [id number] May, [facility] [address] [facility] [id number] [address] [place] [id number] Apr, [facility] [address] [facility] [id number] [address] [place] [id number] Mar, [facility] [address] [facility] [id number] [address] [place] [id number] Mar, IMMUNIZATIONS No Known Immunizations SOCIAL HISTORY Never Assessed REASON FOR VISIT f/u PLAN OF CARE Activity Details Follow Up 1 Week Reason: F/U VITAL SIGNS MEDICATIONS Unknown Medications RESULTS No Results PROCEDURES Procedure Date Ordered Result Body Site [facility] VIS[facility] ESTAB PT December 12, 2017 Psychotherapy, patient &/family, 45 minutes, established pat ient December 12, 2017 INSTRUCTIONS MEDICATIONS ADMINISTERED No Known Medications MEDICAL (GENERAL) HISTORY Type Description Date Medical History Severe spinal stenosis throu cervical spine CT and MRI done 10/2014 at [facility] with Neurosurgery at Medical History Migraine [...]
--- OUTSIDE RECORDS SUMMARY | 2019-06-19 05:30 | XMS REPORT ---
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 Name Role Phone JOHN MORTON Unavailable PROBLEMS Type Condition ICD9-CM Code CNF58-FJ Code Onset Dates Condition S tatus SNOMED Code Problem Hormone replacement therapy Z79.890 Ac tive 596209893 Problem Abnormal CT scan, head R93.0 Active 567309051 Problem Sensorineural hearing loss (SNHL) of both ears H90 .3 Active 023908511 Problem History of colon polyps Z86.010 Active 720199442 Problem Bruising, spontaneous R23.3 Active 880438992 Problem Generalized anxiety disorder F41.1 A ctive 20449509 Problem Arthralgia of hip, unspecified laterality M25.559 Active 93272553 Problem Hematuria, unspecified type R31.9 Ac tive 29329868 Problem Imbalance R26.89 Active 045457425 Problem Hammer toe of right foot M20.41 Activ e 054006366 Problem Plantar wart of right foot B07.0 Act mitchell [id number] Problem Sciatica of left side M54.32 Active 58642580 Problem Hyperlipidemia, unspecified hyperlipidemia type E7 8.5 Active 15519264 Problem Hypertension I10 Active 0149810 3 Problem Night sweats R61 Active 7384335 0 Problem Fibromyalgia M79.7 Active 6450567 7 Problem Major depressive disorder, recurrent episode, moderate F33.1 Active 999988217 Problem Acute left-sided low back pain with left-sided sciatica M54.42 Active 020323940 Problem Bladder spasm N32.89 Active 176792 006 Problem Gastritis without bleeding, unspecified chronicity, unspecified gastritis type K29.70 Active 085118194 Problem Bipolar 1 disorder, mixed F31.60 Acti ve 45906275 Problem Grief F43.20 Active 85432422 Problem Other chronic pain G89.29 Active 8 3151570 Problem Allergic rhinitis J30.9 Active 61 304422 Problem Hot flashes due to menopause N95.1 A ctive 086366022 Problem Ataxia R27.0 Active 97265897 Problem Hearing loss, unspecified laterality H91.90 Active 22474637 ALLERGIES No Information ENCOUNTERS Encounter Location Date Diagnosis [facility] [address] [place] [id number] [place] [address] Mar, [facility] [address] [address] Mar, [facility] [address] [id number] [place] [address] Feb, [place] [address] [address] Feb, [facility] [address] [id number] [place] [address] Jan, Bipolar 1 disorder, mixed F3 1.60 [place] [address] [place] [id number] [place] [address] Jan, Low back pain M54.5 ; Hyperl ipidemia, unspecified hyperlipidemia type E78.5 and Bipolar 1 disorder, mixed F31.60 [place] [address] [place] [id number] [place] [address] Jan, Bipolar 1 disorder, mixed F3 1.60 [place] [address] [place] [id number] [place] [address] Jan, Bipolar 1 disorder, mixed F3 1.60 [place] [address] [place] [id number] [place] [address] Jan, Bipolar 1 disorder, mixed F3 1.60 [place] [address] [place] [id number] [place] [address] Jan, Bipolar 1 disorder, mixed F3 1.60 [facility] [address] [id number] [place] [address] Dec, Bipolar 1 disorder, mixed F3 1.60 ; Generalized anxiety disorder F41.1 and Other fci (current) drug therapy Z79.899 [facility] [address] [id number] [place] [address] Dec, Other fci (current) dr bin therapy Z79.899 [facility] [address] [facility] [id number] [address] [place] [address] Dec, Bipolar 1 disorder, mixed F3 1.60 [facility] [address] [facility] [id number] [address] [place] [address] Dec, Bipolar 1 disorder, mixed F3 1.60 [facility] [address] [place] [id number] [place] [address] Nov, Bipolar 1 disorder, mixed F3 1.60 [facility] [address] [place] [id number] [place] [address] Nov, Bipolar 1 disorder, mixed F3 1.60 [facility] [address] [place] [place] [id number] [place] [address] Nov, Bipolar 1 disorder, mixed F3 1.60 [facility] [address] [place] [id number] [place] [address] Nov, Allergic rhinitis J30.9 [facility] [address] [place] [place] [id number] [place] [address] Nov, Allergic rhinitis J30.9 [facility] [address] [facility] [id number] [address] [place] [address] Nov, [facility] [address] [facility] [id number] [address] [place] [address] Nov, Bipolar 1 disorder, mixed F3 1.60 [facility] [address] [place] [id number] [place] [address] Nov, Fibromyalgia M79.7 and Aller gic rhinitis J30.9 [facility] [address] [facility] [id number] [address] [place] [address] October, Bipolar 1 disorder, mixed F3 1.60 [facility] [address] [facility] [id number] [address] [place] [address] October, Acute nasopharyngitis J00 [facility] [address] [facility] [id number] [address] [place] [address] October, Bitten or stung by nonvenomo us insect and other nonvenomous arthropods, initial encounter W57.XXXA and Insect bite (nonvenomous) of abdominal wall, initial encounter S30.861A [facility] [address] [facility] [id number] [address] [place] [address] October, Insect bite (nonvenomous) of abdominal wall, initial encounter S30.861A ; Bitten or stung by nonvenomous insect and other nonvenomous arthropods, initial encounter W57.XXXA ; Allergic rhinitis J30.9 and Low back pain M54.5 [facility] [address] [facility] [id number] [address] [place] [address] October, Bipolar 1 disorder, mixed F3 1.60 [facility] [address] [facility] [id number] [address] [place] [address] October, [facility] [address] [facility] [id number] [address] [place] [address] October, [facility] [address] [facility] [id number] [address] [place] [address] October, Bipolar 1 disorder, mixed F3 1.60 [facility] [address] [facility] [id number] [address] [place] [address] Sep, Bipolar 1 disorder, mixed F3 1.60 [facility] [address] [facility] [id number] [address] [place] [address] Sep, Other chronic pain G89.29 [facility] [address] [facility] [id number] [address] [place] [address] Sep, [facility] [address] [facility] [id number] [address] [place] [address] Sep, Bipolar 1 disorder, mixed F3 1.60 [facility] [address] [place] [id number] [place] [address] Sep, Allergic rhinitis J30.9 and Sciatica of left side M54.32 [facility] [address] [place] [place] [id number] [place] [address] Sep, Bipolar 1 disorder, mixed F3 1.60 [facility] [address] [place] [id number] [place] [address] Sep, Bipolar 1 disorder, mixed F3 1.60 and Generalized anxiety disorder F41.1 [facility] [address] [id number] [place] [address] Aug, [facility] [address] [place] [id number] [place] [address] Aug, Bipolar 1 disorder, mixed F3 1.60 [facility] [address] [place] [id number] [place] [address] Aug, Bipolar 1 disorder, mixed F3 1.60 [facility] [address] [id number] [place] [address] Aug, [facility] [address] [id number] [place] [address] Aug, Generalized anxiety disorder F41.1 [facility] [address] [place] [id number] [place] [address] Aug, Bipolar 1 disorder, mixed F3 1.60 [facility] [address] [facility] [id number] [address] [place] [address] Aug, Plantar wart of right foot B 07.0 [facility] [address] [facility] [id number] [address] [place] [address] Aug, Bipolar 1 disorder, mixed F3 1.60 [facility] [address] [id number] [place] [address] Jul, Bipolar 1 disorder, mixed F3 1.60 [facility] [address] [facility] [id number] [address] [place] [address] Jul, [facility] [address] [facility] [id number] [address] [place] [address] 14 Jul, 2017 Bipolar 1 disorder, mixed F3 1.60 [facility] [address] [facility] [id number] [address] [place] [address] Jul, Generalized anxiety disorder F41.1 [facility] [address] [facility] [id number] [address] [place] [address] 07 Jul, 2017 Bipolar 1 disorder, mixed F3 1.60 [facility] [address] [facility] [id number] [address] [place] [address] 07 Jul, 2017 Acute left-sided low back pa in with left-sided sciatica M54.42 [facility] [address] [facility] [id number] [address] [place] [address] Jul, Coccydynia M53.3 [facility] [address] [facility] [id number] [address] [place] [address] Jun, Bipolar 1 disorder, mixed F3 1.60 [facility] [address] [facility] [id number] [address] [place] [address] Jun, Acute nasopharyngitis J00 [facility] [address] [facility] [id number] [address] [place] [address] Jun, Bipolar 1 disorder, mixed F3 1.60 [facility] [address] [facility] [id number] [address] [place] [address] Jun, Fibromyalgia M79.7 [facility] [address] [facility] [id number] [address] [place] [address] Jun, Bipolar 1 disorder, mixed F3 1.60 [facility] [address] [facility] [id number] [address] [place] [address] Jun, Fibromyalgia M79.7 and Bipol ar 1 disorder, mixed F31.60 [place] [id number] [address] May, Bipolar 1 disorder, mixed F3 1.60 ; Generalized anxiety disorder F41.1 and Other fci (current) drug therapy Z79.899 [place] [id number] [place] [address] May, Bipolar 1 disorder, mixed F3 1.60 [facility] [address] [address] 14 May, 2017 Cough R05 and Body aches R52 [facility] [place] [address] [address] 10 May, 2017 Bladder spasm N32.89 and Acu te cystitis without hematuria N30.00 [place] [address] [address] 07 May, 2017 Bipolar 1 disorder, mixed F3 1.60 [place] [address] [address] Apr, [place] [address] [address] Apr, Major depressive disorder, r ecurrent episode, moderate F33.1 and Encounter for immunization Z23 [place] [address] [place] [address] Apr, Bipolar 1 disorder, mixed F3 1.60 [place] [address] [place] [address] Apr, Bipolar 1 disorder, mixed F3 1.60 [place] [address] [address] 16 Apr, 2017 Bipolar 1 disorder, mixed F3 1.60 [place] [address] [place] [id number] [place] [address] Apr, Yeast vaginitis B37.3 [place] [address] [facility] [id number] [address] [place] [address] 09 Apr, 2017 Bipolar 1 disorder, mixed F3 1.60 [facility] [address] [facility] [id number] [address] [place] [address] 07 Apr, 2017 Cellulitis L03.[address] for immunization Z23 [facility] [id number] [place] [address] Apr, Bipolar 1 disorder, mixed F3 1.60 [facility] [address] [facility] [id number] [address] [place] [address] Mar, Bipolar 1 disorder, mixed F3 1.60 [place] [address] [address] Mar, Bipolar 1 disorder, mixed F3 1.60 [place] [address] [address] Mar, Imbalance R26.89 and Encount er for immunization Z23 [facility] [address] [id number] [place] [address] Mar, Generalized anxiety disorder F41.1 [facility] [address] [address] Mar, Bipolar 1 disorder, mixed F3 1.60 [facility] [address] [place] [id number] [place] [address] Mar, Generalized anxiety disorder F41.1 [facility] [address] [id number] [place] [address] Mar, Bipolar 1 disorder, mixed F3 1.60 [facility] [address] [id number] [place] [address] Mar, Bipolar 1 disorder, mixed F3 1.60 [facility] [address] [place] [id number] [place] [address] Feb, Bipolar 1 disorder, mixed F3 1.60 [facility] [address] [place] [id number] [place] [address] 25 Feb, 2017 Bipolar 1 disorder, mixed F3 1.60 and Generalized anxiety disorder F41.1 [place] [address] [address] 21 Feb, 2017 Gastritis without bleeding, unspecified chronicity, unspecified gastritis type K29.70 ; Hammer toe of right foot M20.41 and Other viral warts B07.8 [place] [address] [address] 20 Feb, 2017 Bipolar 1 disorder, mixed F3 1.60 [place] [address] [address] 13 Feb, 2017 Bipolar 1 disorder, mixed F3 1.60 [place] [address] [address] 05 Feb, 2017 Bipolar 1 disorder, mixed F3 1.60 [place] [address] [address] Jan, Encounter for screening mamm ogram for breast cancer Z12.31 ; Other viral warts B07.8 and Allergic rhinitis J30.9 [place] [address] [place] [id number] [place] [address] Jan, Bipolar 1 disorder, mixed F3 1.60 [place] [address] [place] [id number] [place] [address] Jan, Bipolar 1 disorder, mixed F3 1.60 [place] [address] [place] [id number] [place] [address] Jan, [place] [address] [address] Jan, Bipolar 1 disorder, mixed F3 1.60 [place] [address] [place] [id number] [place] [address] Jan, Bipolar 1 disorder, mixed F3 1.60 [place] [address] [place] [address] Jan, Allergic rhinitis J30.9 ; He maturia R31.9 and Colon cancer screening Z12.11 [place] [address] [place] [id number] [place] [address] Dec, Bipolar 1 disorder, mixed F3 1.60 [place] [address] [place] [id number] [place] [address] Dec, Bipolar 1 disorder, mixed F3 1.60 ; Generalized anxiety disorder F41.1 and Other 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 frame tender (current) drug therapy Z79.899 [place] [address] [address] Dec, Bipolar 1 disorder, mixed F3 1.60 [place] [address] [address] Dec, Bipolar 1 disorder, mixed F3 1.60 [place] [address] [place] [id number] [place] [address] Dec, Bipolar 1 disorder, mixed F3 1.60 [place] [address] [address] Dec, Low back pain M54.5 and Recu rrent urinary tract infection N39.0 [place] [address] [place] [address] Nov, Bipolar 1 disorder, mixed F3 1.60 [place] [address] [place] [id number] [place] [address] Nov, Bipolar 1 disorder, mixed F3 1.60 [place] [address] [address] Nov, Bipolar 1 disorder, mixed F3 1.60 [place] [address] [place] [id number] [place] [address] Nov, Bipolar 1 disorder, mixed F3 1.60 [place] [address] [address] Nov, [facility] [address] [address] Nov, Anesthesia of skin R20.0 ; F requent UTI N39.0 ; Tobacco abuse Z72.0 and Colon cancer screening Z12.11 [place] [address] [address] Nov, Bipolar 1 disorder, mixed F3 1.60 [place] [address] [address] October, Bipolar 1 disorder, mixed F3 1.60 [place] [address] [address] October, Bipolar 1 disorder, mixed F3 1.60 [place] [address] [address] October, Bipolar 1 disorder, mixed F3 1.60 [place] [address] [address] October, Bipolar 1 disorder, mixed F3 1.60 [place] [address] [address] October, Bipolar 1 disorder, mixed F3 1.60 [place] [address] [address] October, Cervicalgia M54.2 and Bipola r 1 disorder, mixed F31.60 [place] [address] [address] October, Hypertension I10 ; Hyperlipi demia, unspecified hyperlipidemia type E78.5 and Family history of thyroid disease Z83.49 [place] [address] [address] October, [place] [address] [address] October, Hypertension I10 ; Hyperlipi demia, unspecified hyperlipidemia type E78.5 and Family history of thyroid problem Z83.49 [place] [address] [place] [address] October, Bipolar 1 disorder, mixed F3 1.60 [place] [address] [place] [id number] [place] [address] Sep, Bipolar 1 disorder, mixed F3 1.60 [place] [address] [place] [id number] [place] [address] Sep, Bipolar 1 disorder, mixed F3 1.60 [place] [address] [address] Sep, Bipolar 1 disorder, mixed F3 1.60 [place] [address] [address] Sep, History of colon polyps Z86. 010 and Hematochezia K92.1 [place] [address] [place] [address] Sep, Major depressive disorder, r ecurrent episode, moderate F33.1 [place] [address] [place] [address] Sep, Bipolar 1 disorder, mixed F3 1.60 [place] [address] [place] [id number] [place] [address] Aug, Hot flashes due to menopause N95.1 [place] [address] [place] [id number] [place] [address] Aug, Bipolar 1 disorder, mixed F3 1.60 [place] [address] [place] [address] Aug, [place] [address] [place] [address] Aug, Bipolar 1 disorder, mixed F3 1.60 [place] [address] [address] 08 Aug, 2016 Bipolar 1 disorder, mixed F3 1.60 [place] [address] Aug, Hot flashes due to menopause N95.1 ; Cervicalgia M54.2 and Ataxia R27.0 [place] [address] [address] Jul, Bipolar 1 disorder, mixed F3 1.60 [place] [address] Jul, Bipolar 1 disorder, mixed F3 1.60 [place] [address] Jul, Bipolar 1 disorder, mixed F3 1.60 [place] [address] Jul, Bipolar 1 disorder, mixed F3 1.60 [place] [address] [address] Jul, Bipolar 1 disorder, mixed F3 1.60 [place] [address] [place] [id number] Jul, Cervicalgia M54.2 ; Tremor R 25.1 ; Hearing abnormally acute, unspecified laterality H93.239 ; Alopecia L65.9 ; Encounter for immunization Z23 and Family history of thyroid disease Z83.49 [place] [address] [address] Jul, Bipolar 1 disorder, mixed F3 1.60 [place] [address] [place] [address] Jun, [place] [address] [place] [id number] Jun, Hearing disorder, unspecifie d laterality H93.299 [place] [address] [place] [address] [place] [address] Jun, Bipolar 1 disorder, mixed F3 1.60 [facility] [address] [id number] [address] [place] [address] Jun, Bipolar 1 disorder, mixed F3 1.60 [facility] [address] [facility] [id number] [address] [place] [address] Jun, Allergic rhinitis J30.9 [facility] [address] [facility] [id number] [address] [place] [address] Jun, Bipolar 1 disorder, mixed F3 1.60 [facility] [address] [facility] [id number] [address] [place] [address] Jun, Bipolar 1 disorder, mixed F3 1.60 [facility] [address] [facility] [id number] [address] [place] [address] Jun, Allergic rhinitis J30.9 [facility] [address] [facility] [id number] [address] [place] [address] Jun, Allergic rhinitis J30.9 [facility] [address] [id number] [address] [place] [id number] Jun, Bipolar 1 disorder, mixed F3 1.60 [facility] [address] [facility] [id number] [address] [place] [id number] May, Bipolar 1 disorder, mixed F3 1.60 [facility] [address] [facility] [id number] [address] [place] [id number] May, Bipolar 1 disorder, mixed F3 1.60 [facility] [address] [facility] [id number] [address] [place] [phone] May, [facility] [address] [facility] [id number] [address] [place] [id number] May, Bipolar 1 disorder, mixed F3 1.60 [facility] [address] [facility] [id number] [address] [place] [phone] May, Bipolar 1 disorder, mixed F3 1.60 [facility] [address] [facility] [id number] [address] [place] [phone] May, [facility] [address] [place] [id number] [place] [phone] May, [facility] [address] [place] [id number] [address] [place] [phone] May, [facility] [address] [place] [id number] [place] [phone] May, Abdominal pain, unspecified location R10.9 [facility] [address] [place] [id number] [place] [id number] May, [facility] [address] [place] [id number] [place] [phone] Apr, Hematuria R31.9 ; Ataxia R27 .0 and Hearing loss, unspecified laterality H91.90 [facility] [address] [id number] Apr, Bipolar 1 disorder, mixed F3 1.60 [facility] [address] [place] [id number] [place] [phone] Apr, Acute effusion of both middl e ears H65.193 [facility] [address] [place] [id number] [address] [place] [phone] Apr, Hematuria R31.9 and Pyelonep hritis N12 [facility] [address] [id number] [address] [place] [address] Apr, [facility] [address] [id number] [address] [place] [address] Mar, Bipolar 1 disorder, mixed F3 1.60 [facility] [address] [id number] [address] [place] [address] Mar, [facility] [address] [id number] [address] [place] [address] Mar, Bipolar 1 disorder, mixed F3 1.60 [place] [address] [place] [address] Mar, Bipolar 1 disorder, mixed F3 1.60 [place] [address] Mar, Encounter for immunization Z 23 and Gastritis without bleeding, unspecified chronicity, unspecified gastritis type K29.70 [place] [address] [place] [address] Mar, Bipolar 1 disorder, mixed F3 1.60 and Grief F43.20 [place] [address] Mar, Gastritis without bleeding, unspecified chronicity, unspecified gastritis type K29.70 [place] [address] [place] [address]752[address] Mar, Bipolar 1 disorder, mixed F3 1.60 [place] [address] [place] [address] [id number] [address] [place] [address] Mar, Gastritis without bleeding, unspecified chronicity, unspecified gastritis type K29.70 [place] [address] [place] [id number] [address] [place] [address] Mar, [place] [address] [place] [address] Feb, Bipolar 1 disorder, mixed F3 1.60 [place] [address] [place] 7[address]752[address] Feb, Bipolar 1 disorder, mixed F3 1.60 and Grief F43.20 [place] [address] [place] [address] Feb, Gastritis without bleeding, unspecified chronicity, unspecified gastritis type K29.70 [place] [address] [id number] [address] [place] [address] 14 Feb, 2016 Bipolar 1 disorder, mixed F3 1.60 [facility] [address] [facility] [id number] [address] [place] [address] Feb, Gastroesophageal reflux dise ase, esophagitis presence not specified K21.9 [facility] [address] [facility] [id number] [address] [place] [address] Jan, Bipolar 1 disorder, mixed F3 1.60 [facility] [address] [id number] [address] [place] [address] Jan, Bipolar 1 disorder, mixed F3 1.60 and Unsteady gait R26.81 [facility] [address] [facility] [id number] [address] [place] [address] Jan, Bipolar 1 disorder, mixed F3 1.60 [facility] [address] [id number] [address] [place] [address] Jan, Bipolar 1 disorder, mixed F3 1.60 and Other 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 frame tender (current) drug therapy Z79.899 [place] [id number] [id number] [address] [place] [address] Jan, Bipolar 1 disorder, mixed F3 1.60 [facility] [address] [id number] [address] [place] [address] Jan, Bipolar 1 disorder, mixed F3 1.60 [facility] [address] [id number] [address] [place] [address] Jan, Bipolar 1 disorder, mixed F3 1.60 ; Grief F43.20 and Other fci (current) drug therapy Z79.899 [facility] [address] [facility] [id number] [address] [place] [address] Jan, Bipolar 1 disorder, mixed F3 1.60 [facility] [address] [facility] [id number] [address] [place] [address] Dec, [facility] [address] [id number] [address] [place] [address] Dec, Bipolar 1 disorder, mixed F3 1.60 ; Vitamin D deficiency, unspecified E55.9 ; H/O allergic rhinitis Z87.09 ; Other chronic pain G89.29 and Dorsalgia, unspecified M54.9 [place] [address] [place] [address] Dec, [facility] [address] [id number] [address] [place] [address] Dec, Bipolar 1 disorder, mixed F3 1.60 [facility] [address] [place] [address] Dec, Major depressive disorder, r ecurrent episode, moderate F33.1 [place] [address] [address] Dec, Major depressive disorder, r ecurrent episode, moderate F33.1 [place] [address] [address] Nov, [place] [address] [address] Nov, Bipolar 1 disorder, mixed F3 1.60 [place] [address] [address] Nov, Major depressive disorder, r ecurrent episode, moderate F33.1 [address] [address] [place] [address] Nov, Cervicalgia M54.2 ; Arthralg ia of hip, unspecified laterality M25.559 ; Allergic rhinitis J30.9 and Hormone replacement therapy Z79.890 [facility] [address] [facility] [id number] [address] [place] [address] Nov, Other seasonal allergic rhin itis J30.2 [facility] [address] [id number] [address] [place] [address] October, Major depressive disorder, r ecurrent episode, moderate F33.1 [facility] [address] [id number] [address] [place] [address] October, Major depressive disorder, r ecurrent episode, moderate F33.1 and Arthralgia of hip, unspecified laterality M25.559 [place] [address] [address] October, Grief F43.20 ; Hypertension I10 ; Hyperlipidemia, unspecified hyperlipidemia type E78.5 ; Other chronic pain G89.29 and Allergic rhinitis, unspecified allergic rhinitis type J30.9 [place] [address] [address] October, Major depressive disorder, r ecurrent episode, moderate F33.1 [place] [address] [address] Sep, Major depressive disorder, r ecurrent episode, moderate F33.1 [place] [address] [address] Sep, [place] [address] [address] Sep, Major depressive disorder, r ecurrent episode, moderate F33.1 [place] [address] [address] Sep, Grief F43.20 [place] [address] [place] [id number] [address] [place] [address] Aug, Major depressive disorder, r ecurrent episode, moderate F33.1 [place] [address] [place] [id number] [address] [place] [address] Aug, Bipolar 1 disorder, mixed F3 1.60 [place] [address] [id number] [address] [place] [address] Aug, Allergic rhinitis J30.9 ; Ce rvicalgia M54.2 and Low back pain M54.5 [place] [address] [id number] [address] [place] [address] Aug, Major depressive disorder, r ecurrent episode, moderate F33.1 [facility] [address] [id number] [address] [place] [address] Aug, Sinusitis J32.9 and Tobacco 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 [facility] [address] [id number] [address] [place] [address] Aug, [facility] [address] [facility] [id number] [address] [place] [address] Aug, Depressive disorder, not els ewhere classified F32.9 ; Hormone replacement therapy Z79.[address] scan, head R93.0 [facility] [address] [id number] [address] [place] [address] Aug, Major depressive disorder, r ecurrent episode, moderate F33.1 [facility] [address] [facility] [id number] [address] [place] [address] Jul, Major depressive disorder, r ecurrent episode, moderate F33.1 [facility] [address] [id number] [address] [place] [address] Jul, Abdominal pain R10.9 and Hyp ertension I10 [facility] [address] [id number] [address] [place] [address] Jul, [facility] [address] [facility] [id number] [address] [place] [address] Jul, Major depressive disorder, r ecurrent episode, moderate F33.1 [facility] [address] [facility] [id number] [address] [place] [address] Jul, [facility] [address] [id number] [address] [place] [address] Jul, [facility] [address] [facility] [id number] [address] [place] [address] Jun, [facility] [address] [facility] [id number] [address] [place] [address] Jun, Depressive disorder, not els ewhere classified F32.9 [facility] [address] [id number] [address] [place] [address] Jun, [facility] [address] [id number] [address] [place] [address] Jun, [facility] [address] [id number] [address] [place] [address] Jun, Arthralgia of hip, unspecifi ed laterality M25.559 ; Bruising, spontaneous R23.3 and Night sweats R61 [facility] [address] [id number] [address] [place] [address] Jun, [facility] [address] [id number] [address] [place] [address] Jun, [facility] [address] [facility] [id number] [address] [place] [address] May, [facility] [address] [facility] [id number] [address] [place] [address] May, Myalgia M79.1 and Screening, lipid Z13.220 [facility] [address] [facility] [id number] [address] [place] [address] Apr, Status post cervical spinal fusion Z98.1 ; Fibromyalgia M79.7 and Unsteady gait R26.81 [facility] [address] [id number] [address] [place] [address] Nov, [facility] [address] [id number] [address] [place] [address] Nov, [facility] [address] [id number] [address] [place] [address] October, [facility] [address] [facility] [id number] [address] [place] [address] October, [facility] [address] [facility] [id number] [address] [place] [address] October, [facility] [address] [id number] [address] [place] [address] October, [facility] [address] [id number] [address] [place] [address] October, [facility] [address] [id number] [address] [place] [address] October, Dysuria 788.1 ; Nausea 787.0 2 and Urinary tract infection 599.0 [facility] [address] [id number] [address] [place] [address] Sep, [facility] [address] [id number] [address] [place] [address] Sep, [facility] [address] [id number] [address] [place] [address] Aug, [facility] [address] [id number] [address] [place] [address] Aug, [facility] [address] [id number] [address] [place] [address] Aug, [facility] [address] [id number] [address] [place] [address] Aug, [facility] [address] [id number] [address] [place] [address] Aug, [facility] [address] [id number] [address] [place] [address] Aug, [facility] [address] [id number] [address] [place] [address] Aug, [facility] [address] [id number] [address] [place] [address] Aug, [facility] [address] [id number] [address] [place] [address] Aug, [facility] [address] [id number] [address] [place] [address] Aug, [facility] [address] [id number] [address] [place] [address], [place] [address] 18 Aug, 2014 [facility] [address] [id number] [address] [place] [address], [place] [address] 13 Aug, 2014 [facility] [address] [id number] [address] [place] [address], [place] [address] 13 Aug, 2014 [facility] [address] [id number] [address] [place] [address], [place] [address] 11 Aug, 2014 [facility] [address] [id number] [address] [place] [address], [place] [address] 11 Aug, 2014 [facility] [address] [id number] [address] [place] [address], [place] [address] 06 Aug, 2014 [facility] [address] [id number] [address] [place] [address], [place] [address] 06 Aug, 2014 [facility] [address] [id number] [address] [place] [address], [place] [address] 05 Aug, 2014 [facility] [address] [id number] [address] [place] [address], [place] [address] 05 Aug, 2014 [facility] [address] [id number] [address] [place] [address], [place] [address] Aug, [facility] [address] [id number] [address] [place] [address], [place] [address] Aug, [facility] [address] [id number] [address] [place] [address], [place] [address] Aug, [facility] [address] [id number] [address] [place] [address], [place] [address] Jul, [facility] [address] [id number] [address] [place] [address], [place] [address] Jul, [facility] [address] [id number] [address] [place] [address], [place] [address] Jul, [facility] [address] [id number] [address] [place] [address], [place] [address] Jul, 2014 [facility] [address] [id number] [address] [place] [address], [place] [address] Jul, 2014 [facility] [address] [id number] [address] [place] [address], [place] [address] Jul, 2014 [facility] [address] [id number] [address] [place] [address], [place] [address] Jul, 2014 [facility] [address] [id number] [address] [place] [address], [place] [address] Jul, 2014 [facility] [address] [id number] [address] [place] [address], [place] [address] Jul, 2014 [facility] [address] [id number] [address] [place] [address], [place] [address] Jul, 2014 [facility] [address] [id number] [address] [place] [address], [place] [address] Jul, 2014 [facility] [address] [id number] [address] [place] [address], [place] [address] Jul, [facility] [address] [id number] [address] [place] [address], [place] [address] Jul, [facility] [address] [id number] [address] [place] [address], [place] [address] Jul, [facility] [address] [id number] [address] [place] [address], [place] [address] Jun, [facility] [address] [id number] [address] [place] [address] Jun, [facility] [address] [id number] [address] [place] [address] Jun, [facility] [address] [id number] [address] [place] [address] Jun, [facility] [address] [id number] [address] [place] [address] Jun, [facility] [address] [id number] [address] [place] [address], [place] [address] Jun, [facility] [address] [id number] [address] [place] [address], [place] [address] May, [facility] [address] [id number] [address] [place] [address], [place] [address] May, [facility] [address] [id number] [address] [place] [address], [place] [address] May, [facility] [address] [id number] [address] [place] [address], [place] [address] May, [facility] [address] [id number] [address] [place] [address], [place] [address] May, [facility] [address] [id number] [address] [place] [address], [place] [address] May, [facility] [address] [id number] [address] [place] [address], [place] [address] Apr, [facility] [address] [id number] [address] [place] [address], [place] [address] Apr, [facility] [address] [id number] [address] [place] [address], [place] [address] Apr, [facility] [address] [id number] [address] [place] [address], [place] [address] Apr, [facility] [address] [id number] [address] [place] [address], [place] [address] Apr, [facility] [address] [id number] [address] [place] [address], [place] [address] Apr, [facility] [address] [id number] [address] [place] [address], [place] [address] Mar, [facility] [address] [id number] [address] [place] [address], [place] [address] Mar, [facility] [address] [id number] [address] [place] [address], [place] [address] Mar, [facility] [address] [id number] [address] [place] [address], [place] [address] Mar, 2013 [facility] [address] [id number] [address] [place] [address], [place] [address] Mar, 2013 [facility] [address] [id number] [address] [place] [address], [place] [address] Mar, 2013 [facility] [address] [id number] [address] [place] [address], [place] [address] Mar, 2013 [facility] [address] [id number] [address] [place] [address], [place] [address] Mar, 2013 [facility] [address] [id number] [address] [place] [address], [place] [address] Mar, [facility] [address] [id number] [address] [place] [address], [place] [address] Mar, [facility] [address] [id number] [address] [place] [address], [place] [address] Mar, [facility] [address] [id number] [address] [place] [address], [place] [address] Mar, [facility] [address] [id number] [address] [place] [address], [place] [address] 30 Feb, 2013 [facility] [address] [id number] [address] [place] [address], [place] [address] 29 Sep, 2013 [facility] [address] [id number] [address] [place] [address] 29 Sep, 2013 [facility] [address] [id number] [address] [place] [address], [place] [address] 23 Sep, 2013 [facility] [address] [id number] [address] [place] [address], [place] [address] 23 Sep, 2013 [facility] [address] [id number] [address] [place] [address], [place] [address] 08 Sep, 2013 [facility] [address] [id number] [facility] [place] [address] Feb, [facility] [address] [id number] [address] [place] [address], [place] [address] Jan, [facility] [address] [id number] [address] [place] [address], [place] [address] Jan, [facility] [address] [id number] [address] [place] [address], [place] [address] Jan, [facility] [address] [id number] [address] [place] [address], [place] [address] Dec, [facility] [address] [id number] [address] [place] [address], [place] [address] Dec, [facility] [address] [id number] [address] [place] [address], [place] [address] Dec, [facility] [address] [id number] [address] [place] [address], [place] [address] Dec, [facility] [address] [id number] [address] [place] [address], [place] [address] Sep, [facility] [address] [id number] [address] [place] [address], [place] [address] Sep, [facility] [address] [id number] [address] [place] [address], [place] [address] Sep, [facility] [address] [id number] [address] [place] [address], [place] [address] Sep, [facility] [address] [id number] [address] [place] [address], [place] [address] Sep, [facility] [address] [id number] [address] [place] [address], [place] [address] Sep, [facility] [address] [id number] [address] [place] [address], [place] [address] Sep, [facility] [address] [id number] [address] [place] [address], [place] [address] Sep, [facility] [address] [id number] [address] [place] [address], [place] [address] Aug, [facility] [address] [id number] [address] [place] [address], [place] [address] Aug, [facility] [address] [id number] [address] [place] [address], [place] [address] May, [facility] [address] [id number] [address] [place] [address], [place] [address] May, [facility] [address] [id number] [address] [place] [address], [place] [address] Apr, [facility] [address] [id number] [address] [place] [address], [place] [address] Apr, [facility] [address] [id number] [address] [place] [address], [place] [address] Apr, [facility] [address] [id number] [address] [place] [address], [place] [address] Apr, [facility] [address] [id number] [address] [place] [address], [place] [address] Apr, [facility] [address] [id number] [address] [place] [address], [place] [address] Apr, [facility] [address] [id number] [address] [place] [address], [place] [address] May, [facility] [address] [id number] [address] [place] [address], [place] [address] 18 May, 2012 [facility] [address] [id number] [address] [place] [address], [place] [address] 15 May, 2012 [facility] [address] [id number] [address] [place] [address], [place] [address] 15 May, 2012 [facility] [address] [id number] [address] [place] [address], [place] [address] 13 May, 2012 [facility] [address] [id number] [address] [place] [address] 13 May, 2012 [facility] [address] [id number] [address] [place] [address], [place] [address] 13 Apr, 2012 [facility] [address] [id number] [address] [place] [address] 13 Apr, 2012 [facility] [address] [id number] [address] [place] [address], [place] [address] 08 Apr, 2012 [facility] [address] [id number] [address] [place] [address] 08 Apr, 2012 [facility] [address] [id number] [address] [place] [address], [place] [address] Apr, [facility] [address] [id number] [address] [place] [address], [place] [address] Apr, [facility] [address] [id number] [address] [place] [address] Apr, [facility] [address] [id number] [address] [place] [address] Apr, [facility] [address] [id number] [address] [place] [address], [place] [address] Apr, [facility] [address] [id number] [address] [place] [address] Apr, [facility] [address] [id number] [address] [place] [id number] Mar, [facility] [address] [id number] [address] [place] [id number] Mar, [facility] [address] [id number] [address] [place] [phone] Mar, [facility] [address] [id number] [address] [place] [id number] Mar, [facility] [address] [id number] [address] [place] [phone] Mar, [facility] [address] [id number] [address] [place] [address], [place] [address] Mar, [facility] [address] [id number] [address] [place] [address], [place] [address] Mar, [facility] [address] [id number] [address] [place] [address], [place] [address] Mar, [facility] [address] [id number] [address] [place] [address], [place] [address] Mar, [facility] [address] [id number] [address] [place] [address], [place] [address] 25 Feb, 2012 [facility] [address] [id number] [address] [place] [address], [place] [address] 16 Feb, 2012 [facility] [address] [id number] [address] [place] [address], [place] [address] Feb, [facility] [address] [id number] [address] [place] [address], [place] [address] Jan, [facility] [address] [id number] [address] [place] [address], [place] [address] Jan, [facility] [address] [id number] [address] [place] [address], [place] [address] Jan, [facility] [address] [id number] [address] [place] [address], [place] [address] Jan, [facility] [address] [id number] [address] [place] [address], [place] [address] Jan, [facility] [address] [id number] [address] [place] [address], [place] [address] Jan, [facility] [address] [id number] [address] [place] [address], [place] [address] 16 Jan, 2012 [facility] [address] [id number] [address] [place] [address], [place] [address] 15 Jan, 2012 [facility] [address] [id number] [address] [place] [address], [place] [address] Jan, [facility] [address] [id number] [address] [place] [address], [place] [address] Jan, [facility] [address] [id number] [address] [place] [address], [place] [address] Dec, [facility] [address] [id number] [address] [place] [address], [place] [address] Dec, [facility] [address] [id number] [address] [place] [address], [place] [address] Dec, [facility] [address] [id number] [address] [place] [address], [place] [address] Dec, [facility] [address] [id number] [address] [place] [address], [place] [address] Nov, [facility] [address] [id number] [address] [place] [address], [place] [address] Nov, [facility] [address] [id number] [address] [place] [address], [place] [address] Nov, [facility] [address] [id number] [address] [place] [address], [place] [address] October, [facility] [address] [id number] [address] [place] [address], [place] [address] October, [facility] [address] [id number] [address] [place] [address], [place] [address] October, [facility] [address] [id number] [address] [place] [address], [place] [address] October, [facility] [address] [id number] [address] [place] [address], [place] [address] October, [facility] [address] [id number] [address] [place] [address], [place] [address] October, [facility] [address] [id number] [address] [place] [address], [place] [address] Aug, [facility] [address] [id number] [address] [place] [id number] 10 Mar, 2011 [facility] [address] [facility] [id number] [address] [place] [id number] 16 Nov, 2010 [facility] [address] [facility] [id number] [address] [place] [phone] May, [facility] [address] [facility] [id number] [address] [place] [phone] May, [facility] [address] [facility] [id number] [address] [place] [phone] Apr, [facility] [address] [facility] [id number] [address] [place] [id number] Mar, [facility] [address] [facility] [id number] [address] [place] [id number] Mar, IMMUNIZATIONS No Known Immunizations SOCIAL HISTORY Never Assessed REASON FOR VISIT BH f/u PLAN OF CARE Activity Details Follow Up 1 Week Reason: F/U VITAL SIGNS MEDICATIONS Unknown Medications RESULTS No Results PROCEDURES Procedure Date Ordered Result Body Site [facility] VISIT MENTAL HEALTH ESTAB PT December 17, 2017 Psychotherapy, patient &/family, 30 minutes, established pat ient December 17, 2017 INSTRUCTIONS MEDICATIONS ADMINISTERED No Known Medications [...]
--- OUTSIDE RECORDS SUMMARY | 2019-06-19 05:30 | XMS REPORT ---
Author Author Sydnie MORTON Organization [facility] Address [address] [place] [address] Care Team Providers Care Paper Twister Tender Name Role Phone JOHN MORTON Unavailable PROBLEMS Type Condition ICD9-CM Code [id number] Code Onset Dates Condition S tatus SNOMED Code Problem Hormone replacement therapy Z79.890 Ac tive 750177080 Problem Abnormal CT scan, head R93.0 Active 869019701 Problem Sensorineural hearing loss (SNHL) of both ears H90 .3 Active 737489119 Problem History of colon polyps Z86.010 Active 726590849 Problem Bruising, spontaneous R23.3 Active 784829092 Problem Generalized anxiety disorder F41.1 A ctive 47352954 Problem Arthralgia of hip, unspecified laterality M25.559 Active 34050785 Problem Hematuria, unspecified type R31.9 Ac tive 37866954 Problem Imbalance R26.89 Active 505310257 Problem Hammer toe of right foot M20.41 Activ e 289775272 Problem Plantar wart of right foot B07.0 Act mitchell [id number] Problem Sciatica of left side M54.32 Active 09837177 Problem Hyperlipidemia, unspecified hyperlipidemia type E7 8.5 Active 97341933 Problem Hypertension I10 Active 5368646 3 Problem Night sweats R61 Active 1598905 0 Problem Fibromyalgia M79.7 Active 2923542 7 Problem Major depressive disorder, recurrent episode, moderate F33.1 Active 227067614 Problem Acute left-sided low back pain with left-sided sciatica M54.42 Active 392174596 Problem Bladder spasm N32.89 Active 335065 006 Problem Gastritis without bleeding, unspecified chronicity, unspecified gastritis type K29.70 Active 217775318 Problem Bipolar 1 disorder, mixed F31.60 Acti ve 28904440 Problem Grief F43.20 Active 38255495 Problem Other chronic pain G89.29 Active 8 6177679 Problem Allergic rhinitis J30.9 Active 61 043990 Problem Hot flashes due to menopause N95.1 A ctive 331294219 Problem Ataxia R27.0 Active 46910372 Problem Hearing loss, unspecified laterality H91.90 Active 61763790 ALLERGIES No Information ENCOUNTERS Encounter Location Date Diagnosis [facility] [address] [place] [id number] [place] [address] Mar, [facility] [address] [address] Mar, [facility] [address] [id number] [place] [address] Feb, [place] [address] [address] Feb, [facility] [address] [id number] [place] [address] Jan, Bipolar 1 disorder, mixed F3 1.60 [place] [address] [place] [id number] [place] [address] Jan, Low back pain M54.5 ; Hyperl ipidemia, unspecified hyperlipidemia type E78.5 and Bipolar 1 disorder, mixed F31.60 [place] [address] [place] [id number] [place] [address] Jan, Bipolar 1 disorder, mixed F3 1.60 [place] [address] [place] [id number] [place] [address] Jan, Bipolar 1 disorder, mixed F3 1.60 [place] [address] [place] [id number] [place] [address] Jan, Bipolar 1 disorder, mixed F3 1.60 [place] [address] [place] [id number] [place] [address] Jan, Bipolar 1 disorder, mixed F3 1.60 [facility] [address] [place] [id number] [place] [address] Dec, Bipolar 1 disorder, mixed F3 1.60 ; Generalized anxiety disorder F41.1 and Other 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 (current) drug therapy Z79.899 [facility] [address] [id number] [place] [address] Dec, Other 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 (current) dr bin therapy Z79.899 [facility] [address] [facility] [id number] [address] [place] [address] Dec, Bipolar 1 disorder, mixed F3 1.60 [facility] [address] [facility] [id number] [address] [place] [address] Dec, Bipolar 1 disorder, mixed F3 1.60 [facility] [address] [place] [id number] [place] [address] Nov, Bipolar 1 disorder, mixed F3 1.60 [facility] [address] [place] [id number] [place] [address] Nov, Bipolar 1 disorder, mixed F3 1.60 [facility] [address] [id number] [place] [address] Nov, Bipolar 1 disorder, mixed F3 1.60 [facility] [address] [place] [id number] [place] [address] Nov, Allergic rhinitis J30.9 [facility] [address] [id number] [place] [address] Nov, Allergic rhinitis J30.9 [facility] [address] [facility] [id number] [address] [place] [address] Nov, [facility] [address] [facility] [id number] [address] [place] [address] Nov, Bipolar 1 disorder, mixed F3 1.60 [facility] [address] [place] [address] [id number] [place] [address] Nov, Fibromyalgia M79.7 and Aller gic rhinitis J30.9 [facility] [address] [facility] [id number] [address] [place] [address] October, Bipolar 1 disorder, mixed F3 1.60 [facility] [address] [facility] [id number] [address] [place] [address] October, Acute nasopharyngitis J00 [facility] [address] [facility] [id number] [address] [place] [address] October, Bitten or stung by nonvenomo us insect and other nonvenomous arthropods, initial encounter W57.XXXA and Insect bite (nonvenomous) of abdominal wall, initial encounter S30.861A [facility] [address] [facility] [id number] [address] [place] [address] October, Insect bite (nonvenomous) of abdominal wall, initial encounter S30.861A ; Bitten or stung by nonvenomous insect and other nonvenomous arthropods, initial encounter W57.XXXA ; Allergic rhinitis J30.9 and Low back pain M54.5 [facility] [address] [facility] [id number] [address] [place] [address] October, Bipolar 1 disorder, mixed F3 1.60 [facility] [address] [facility] [id number] [address] [place] [address] October, [facility] [address] [facility] [id number] [address] [place] [address] October, [facility] [address] [facility] [id number] [address] [place] [address] October, Bipolar 1 disorder, mixed F3 1.60 [facility] [address] [facility] [id number] [address] [place] [address] Sep, Bipolar 1 disorder, mixed F3 1.60 [facility] [address] [facility] [id number] [address] [place] [address] Sep, Other chronic pain G89.29 [facility] [address] [facility] [id number] [address] [place] [address] Sep, [facility] [address] [facility] [id number] [address] [place] [address] Sep, Bipolar 1 disorder, mixed F3 1.60 [facility] [address] [place] [id number] [place] [address] Sep, Allergic rhinitis J30.9 and Sciatica of left side M54.32 [facility] [address] [place] [id number] [place] [address] Sep, Bipolar 1 disorder, mixed F3 1.60 [facility] [address] [place] [id number] [place] [address] Sep, Bipolar 1 disorder, mixed F3 1.60 and Generalized anxiety disorder F41.1 [facility] [address] [place] [address] [id number] [place] [address] Aug, [facility] [address] [address] [id number] [place] [address] Aug, Bipolar 1 disorder, mixed F3 1.60 [facility] [address] [address] [id number] [place] [address] Aug, Bipolar 1 disorder, mixed F3 1.60 [facility] [address] [id number] [place] [address] Aug, [facility] [id number] [place] [address] Aug, Generalized anxiety disorder F41.1 [facility] [id number] [place] [address] Aug, Bipolar 1 disorder, mixed F3 1.60 [facility] [address] [facility] [id number] [address] [place] [address] Aug, Plantar wart of right foot B 07.0 [facility] [address] [facility] [id number] [address] [place] [address] Aug, Bipolar 1 disorder, mixed F3 1.60 [facility] [address] [place] [id number] [place] [address] Jul, Bipolar 1 disorder, mixed F3 1.60 [facility] [address] [facility] [id number] [address] [place] [address] Jul, [facility] [address] [facility] [id number] [address] [place] [address] 14 Jul, 2017 Bipolar 1 disorder, mixed F3 1.60 [facility] [address] [facility] [id number] [address] [place] [address] Jul, Generalized anxiety disorder F41.1 [facility] [address] [facility] [id number] [address] [place] [address] 07 Jul, 2017 Bipolar 1 disorder, mixed F3 1.60 [facility] [address] [facility] [id number] [address] [place] [address] 07 Jul, 2017 Acute left-sided low back pa in with left-sided sciatica M54.42 [facility] [address] [facility] [id number] [address] [place] [address] Jul, Coccydynia M53.3 [facility] [address] [facility] [id number] [address] [place] [address] Jun, Bipolar 1 disorder, mixed F3 1.60 [facility] [address] [facility] [id number] [address] [place] [address] Jun, Acute nasopharyngitis J00 [facility] [address] [facility] [id number] [address] [place] [address] Jun, Bipolar 1 disorder, mixed F3 1.60 [facility] [address] [facility] [id number] [address] [place] [address] Jun, Fibromyalgia M79.7 [facility] [address] [facility] [id number] [address] [place] [address] Jun, Bipolar 1 disorder, mixed F3 1.60 [facility] [address] [facility] [id number] [address] [place] [address] Jun, Fibromyalgia M79.7 and Bipol ar 1 disorder, mixed F31.60 [place] [address] [address] May, Bipolar 1 disorder, mixed F3 1.60 ; Generalized anxiety disorder F41.1 and Other 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 (current) drug therapy Z79.899 [place] [address] [place] [address] May, Bipolar 1 disorder, mixed F3 1.60 [facility] [address] [address] 14 May, 2017 Cough R05 and Body aches R52 [facility] [place] [address] [address] 10 May, 2017 Bladder spasm N32.89 and Acu te cystitis without hematuria N30.00 [place] [address] [address] 07 May, 2017 Bipolar 1 disorder, mixed F3 1.60 [place] [address] [address] Apr, [place] [address] [address] Apr, Major depressive disorder, r ecurrent episode, moderate F33.1 and Encounter for immunization Z23 [place] [address] [place] [address] Apr, Bipolar 1 disorder, mixed F3 1.60 [place] [address] [place] [address] Apr, Bipolar 1 disorder, mixed F3 1.60 [place] [address] [address] 16 Apr, 2017 Bipolar 1 disorder, mixed F3 1.60 [place] [address] [place] [id number] [place] [address] Apr, Yeast vaginitis B37.3 [place] [address] [facility] [id number] [address] [place] [address] 09 Apr, 2017 Bipolar 1 disorder, mixed F3 1.60 [facility] [address] [facility] [id number] [address] [place] [address] 07 Apr, 2017 [address]03[address] for immunization Z23 [facility] [address] [id number] [place] [address] Apr, Bipolar 1 disorder, mixed F3 1.60 [facility] [address] [facility] [id number] [address] [place] [address] Mar, Bipolar 1 disorder, mixed F3 1.60 [place] [address] [address] Mar, Bipolar 1 disorder, mixed F3 1.60 [place] [address] [address] Mar, Imbalance R26.89 and Encount er for immunization Z23 [facility] [id number] [place] [address] Mar, Generalized anxiety disorder F41.1 [facility] [address] [address] Mar, Bipolar 1 disorder, mixed F3 1.60 [facility] [address] [place] [id number] [place] [address] Mar, Generalized anxiety disorder F41.1 [facility] [address] [place] [id number] [place] [address] Mar, Bipolar 1 disorder, mixed F3 1.60 [facility] [address] [place] [id number] [place] [address] Mar, Bipolar 1 disorder, mixed F3 1.60 [facility] [address] [place] [id number] [place] [address] Feb, Bipolar 1 disorder, mixed F3 1.60 [facility] [address] [place] [id number] [place] [address] 25 Feb, 2017 Bipolar 1 disorder, mixed F3 1.60 and Generalized anxiety disorder F41.1 [place] [address] [address] 21 Feb, 2017 Gastritis without bleeding, unspecified chronicity, unspecified gastritis type K29.70 ; Hammer toe of right foot M20.41 and Other viral warts B07.8 [place] [address] [address] 20 Feb, 2017 Bipolar 1 disorder, mixed F3 1.60 [place] [address] [address] 13 Feb, 2017 Bipolar 1 disorder, mixed F3 1.60 [place] [address] [address] 05 Feb, 2017 Bipolar 1 disorder, mixed F3 1.60 [place] [address] [address] Jan, Encounter for screening mamm ogram for breast cancer Z12.31 ; Other viral warts B07.8 and Allergic rhinitis J30.9 [place] [address] [place] [id number] [place] [address] Jan, Bipolar 1 disorder, mixed F3 1.60 [place] [address] [place] [id number] [place] [address] Jan, Bipolar 1 disorder, mixed F3 1.60 [place] [address] [place] [id number] [place] [address] Jan, [place] [address] [address] Jan, Bipolar 1 disorder, mixed F3 1.60 [place] [address] [place] [id number] [place] [address] Jan, Bipolar 1 disorder, mixed F3 1.60 [place] [address] [place] [address] Jan, Allergic rhinitis J30.9 ; He maturia R31.9 and Colon cancer screening Z12.11 [place] [address] [place] [id number] [place] [address] Dec, Bipolar 1 disorder, mixed F3 1.60 [place] [address] [place] [id number] [place] [address] Dec, Bipolar 1 disorder, mixed F3 1.60 ; Generalized anxiety disorder F41.1 and 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 Z79.899 [place] [address] [address] Dec, Bipolar 1 disorder, mixed F3 1.60 [place] [address] [address] Dec, Bipolar 1 disorder, mixed F3 1.60 [place] [address] [place] [id number] [place] [address] Dec, Bipolar 1 disorder, mixed F3 1.60 [place] [address] [address] Dec, Low back pain M54.5 and Recu rrent urinary tract infection N39.0 [place] [address] [place] [address] Nov, Bipolar 1 disorder, mixed F3 1.60 [place] [address] [place] [id number] [place] [address] Nov, Bipolar 1 disorder, mixed F3 1.60 [place] [address] [address] Nov, Bipolar 1 disorder, mixed F3 1.60 [place] [address] [place] [id number] [place] [address] Nov, Bipolar 1 disorder, mixed F3 1.60 [place] [address] [address] Nov, [facility] [address] [address] Nov, Anesthesia of skin R20.0 ; F requent UTI N39.0 ; Tobacco abuse Z72.0 and Colon cancer screening Z12.11 [place] [address] [address] Nov, Bipolar 1 disorder, mixed F3 1.60 [place] [address] [address] October, Bipolar 1 disorder, mixed F3 1.60 [place] [address] [address] October, Bipolar 1 disorder, mixed F3 1.60 [place] [address] [address] October, Bipolar 1 disorder, mixed F3 1.60 [place] [address] [address] October, Bipolar 1 disorder, mixed F3 1.60 [place] [address] [address] October, Bipolar 1 disorder, mixed F3 1.60 [place] [address] [address] October, Cervicalgia M54.2 and Bipola r 1 disorder, mixed F31.60 [place] [address] [address] October, Hypertension I10 ; Hyperlipi demia, unspecified hyperlipidemia type E78.5 and Family history of thyroid disease Z83.49 [place] [address] [address] October, [place] [address] [address] October, Hypertension I10 ; Hyperlipi demia, unspecified hyperlipidemia type E78.5 and Family history of thyroid problem Z83.49 [place] [address] [place] [address] October, Bipolar 1 disorder, mixed F3 1.60 [place] [address] [place] [id number] [place] [address] Sep, Bipolar 1 disorder, mixed F3 1.60 [place] [address] [place] [id number] [place] [address] Sep, Bipolar 1 disorder, mixed F3 1.60 [place] [address] [address] Sep, Bipolar 1 disorder, mixed F3 1.60 [place] [address] [address] Sep, History of colon polyps Z86. 010 and Hematochezia K92.1 [place] [address] [place] [address] Sep, Major depressive disorder, r ecurrent episode, moderate F33.1 [place] [address] [place] [address] Sep, Bipolar 1 disorder, mixed F3 1.60 [place] [address] [place] [id number] [place] [address] Aug, Hot flashes due to menopause N95.1 [place] [address] [place] [id number] [place] [address] Aug, Bipolar 1 disorder, mixed F3 1.60 [place] [address] [place] [address] Aug, [place] [address] [place] [address] Aug, Bipolar 1 disorder, mixed F3 1.60 [place] [address] [address] 08 Aug, 2016 Bipolar 1 disorder, mixed F3 1.60 [place] [address] Aug, Hot flashes due to menopause N95.1 ; Cervicalgia M54.2 and Ataxia R27.0 [place] [address] [address] Jul, Bipolar 1 disorder, mixed F3 1.60 [place] [address] Jul, Bipolar 1 disorder, mixed F3 1.60 [place] [address] Jul, Bipolar 1 disorder, mixed F3 1.60 [place] [address] Jul, Bipolar 1 disorder, mixed F3 1.60 [place] [address] [address] Jul, Bipolar 1 disorder, mixed F3 1.60 [place] [address] [place] [id number] Jul, Cervicalgia M54.2 ; Tremor R 25.1 ; Hearing abnormally acute, unspecified laterality H93.239 ; Alopecia L65.9 ; Encounter for immunization Z23 and Family history of thyroid disease Z83.49 [place] [address] [address] Jul, Bipolar 1 disorder, mixed F3 1.60 [place] [address] [place] [address] Jun, [place] [address] [place] [id number] Jun, Hearing disorder, unspecifie d laterality H93.299 [place] [address] [place] [address] [place] [address] Jun, Bipolar 1 disorder, mixed F3 1.60 [facility] [address] [id number] [address] [place] [address] Jun, Bipolar 1 disorder, mixed F3 1.60 [facility] [address] [facility] [id number] [address] [place] [address] Jun, Allergic rhinitis J30.9 [facility] [address] [facility] [id number] [address] [place] [address] Jun, Bipolar 1 disorder, mixed F3 1.60 [facility] [address] [facility] [id number] [address] [place] [address] Jun, Bipolar 1 disorder, mixed F3 1.60 [facility] [address] [facility] [id number] [address] [place] [phone] Jun, Allergic rhinitis J30.9 [facility] [address] [facility] [id number] [address] [place] [phone] Jun, Allergic rhinitis J30.9 [facility] [address] [id number] [address] [place] [phone] Jun, Bipolar 1 disorder, mixed F3 1.60 [facility] [address] [facility] [id number] [address] [place] [phone] May, Bipolar 1 disorder, mixed F3 1.60 [facility] [address] [facility] [id number] [address] [place] [phone] May, Bipolar 1 disorder, mixed F3 1.60 [facility] [address] [facility] [id number] [address] [place] [phone] May, [facility] [address] [facility] [id number] [address] [place] [phone] May, Bipolar 1 disorder, mixed F3 1.60 [facility] [address] [facility] [id number] [address] [place] [phone] May, Bipolar 1 disorder, mixed F3 1.60 [facility] [address] [facility] [id number] [address] [place] [phone] May, [facility] [address] [place] [id number] [place] [phone] May, [facility] [address] [place] [id number] [address] [place] [phone] May, [facility] [address] [place] [id number] [place] [phone] May, Abdominal pain, unspecified location R10.9 [facility] [address] [place] [id number] [place] [phone] May, [facility] [address] [place] [id number] [place] [phone] Apr, Hematuria R31.9 ; Ataxia R27 .0 and Hearing loss, unspecified laterality H91.90 [facility] [address] [phone] Apr, Bipolar 1 disorder, mixed F3 1.60 [facility] [id number] [place] [address] Apr, Acute effusion of both middl e ears H65.193 [facility] [address] [id number] [address] [place] [address] Apr, Hematuria R31.9 and Pyelonep hritis N12 [facility] [address] [id number] [address] [place] [address] Apr, [facility] [address] [id number] [address] [place] [address] Mar, Bipolar 1 disorder, mixed F3 1.60 [facility] [address] [id number] [address] [place] [address] Mar, [facility] [address] [id number] [address] [place] [address] Mar, Bipolar 1 disorder, mixed F3 1.60 [place] [address] [place] [address] Mar, Bipolar 1 disorder, mixed F3 1.60 [place] [address] Mar, Encounter for immunization Z 23 and Gastritis without bleeding, unspecified chronicity, unspecified gastritis type K29.70 [place] [address] [place] [address] Mar, Bipolar 1 disorder, mixed F3 1.60 and Grief F43.20 [place] [address] Mar, Gastritis without bleeding, unspecified chronicity, unspecified gastritis type K29.70 [place] [address] [place] 79[address] Mar, Bipolar 1 disorder, mixed F3 1.60 [place] [address] [place] [id number] [address] [place] [address] Mar, Gastritis without bleeding, unspecified chronicity, unspecified gastritis type K29.70 [place] [address] [place] [id number] [address] [place] [address] Mar, [place] [address] [place] [address] Feb, Bipolar 1 disorder, mixed F3 1.60 [place] [address] [place] [id number] Feb, Bipolar 1 disorder, mixed F3 1.60 and Grief F43.20 [place] [address] [place] 79[address] Feb, Gastritis without bleeding, unspecified chronicity, unspecified gastritis type K29.70 [place] [address] [id number] [address] [place] [address] 14 Feb, 2016 Bipolar 1 disorder, mixed F3 1.60 [facility] [address] [facility] [id number] [address] [place] [address] Feb, Gastroesophageal reflux dise ase, esophagitis presence not specified K21.9 [facility] [address] [facility] [id number] [address] [place] [address] Jan, Bipolar 1 disorder, mixed F3 1.60 [facility] [address] [id number] [address] [place] [address] Jan, Bipolar 1 disorder, mixed F3 1.60 and Unsteady gait R26.81 [facility] [address] [facility] [id number] [address] [place] [address] Jan, Bipolar 1 disorder, mixed F3 1.60 [facility] [address] [id number] [address] [place] [address] Jan, Bipolar 1 disorder, mixed F3 1.60 and 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 Z79.899 [place] [address] [address] [id number] [address] [place] [address] Jan, Bipolar 1 disorder, mixed F3 1.60 [facility] [address] [id number] [address] [place] [address] Jan, Bipolar 1 disorder, mixed F3 1.60 [facility] [address] [id number] [address] [place] [address] Jan, Bipolar 1 disorder, mixed F3 1.60 ; Grief F43.20 and Other 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 (current) drug therapy Z79.899 [facility] [address] [facility] [id number] [address] [place] [address] Jan, Bipolar 1 disorder, mixed F3 1.60 [facility] [address] [facility] [id number] [address] [place] [address] Dec, [facility] [address] [id number] [address] [place] [address] Dec, Bipolar 1 disorder, mixed F3 1.60 ; Vitamin D deficiency, unspecified E55.9 ; H/O allergic rhinitis Z87.09 ; Other chronic pain G89.29 and Dorsalgia, unspecified M54.9 [place] [address] [place] [address] Dec, [facility] [address] [id number] [address] [place] [address] Dec, Bipolar 1 disorder, mixed F3 1.60 [facility] [address] [place] [address] Dec, Major depressive disorder, r ecurrent episode, moderate F33.1 [place] [address] [address] Dec, Major depressive disorder, r ecurrent episode, moderate F33.1 [place] [address] [address] Nov, [place] [address] [address] Nov, Bipolar 1 disorder, mixed F3 1.60 [place] [address] [address] Nov, Major depressive disorder, r ecurrent episode, moderate F33.1 [place] [address] [place] [address] Nov, Cervicalgia M54.2 ; Arthralg ia of hip, unspecified laterality M25.559 ; Allergic rhinitis J30.9 and Hormone replacement therapy Z79.890 [facility] [address] [facility] [id number] [address] [place] [address] Nov, Other seasonal allergic rhin itis J30.2 [facility] [address] [id number] [address] [place] [address] October, Major depressive disorder, r ecurrent episode, moderate F33.1 [facility] [address] [id number] [address] [place] [address] October, Major depressive disorder, r ecurrent episode, moderate F33.1 and Arthralgia of hip, unspecified laterality M25.559 [place] [address] [address] October, Grief F43.20 ; Hypertension I10 ; Hyperlipidemia, unspecified hyperlipidemia type E78.5 ; Other chronic pain G89.29 and Allergic rhinitis, unspecified allergic rhinitis type J30.9 [place] [address] [address] October, Major depressive disorder, r ecurrent episode, moderate F33.1 [place] [address] [address] Sep, Major depressive disorder, r ecurrent episode, moderate F33.1 [place] [address] [address] Sep, [place] [address] [address] Sep, Major depressive disorder, r ecurrent episode, moderate F33.1 [place] [address] [address] Sep, Grief F43.20 [place] [address] [place] [id number] [address] [place] [address] Aug, Major depressive disorder, r ecurrent episode, moderate F33.1 [place] [address] [place] [id number] [address] [place] [address] Aug, Bipolar 1 disorder, mixed F3 1.60 [place] [address] [place] [id number] [address] [place] [address] Aug, Allergic rhinitis J30.9 ; Ce rvicalgia M54.2 and Low back pain M54.5 [place] [address] [place] [id number] [address] [place] [address] Aug, Major depressive disorder, r ecurrent episode, moderate F33.1 [facility] [address] [id number] [address] [place] [address] Aug, Sinusitis J32.9 and Tobacco 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 [facility] [address] [id number] [address] [place] [address] Aug, [facility] [address] [facility] [id number] [address] [place] [address] Aug, Depressive disorder, not els ewhere classified F32.9 ; Hormone replacement therapy Z79.[address] scan, head R93.0 [facility] [address] [id number] [address] [place] [address] Aug, Major depressive disorder, r ecurrent episode, moderate F33.1 [facility] [address] [facility] [id number] [address] [place] [address] Jul, Major depressive disorder, r ecurrent episode, moderate F33.1 [facility] [address] [id number] [address] [place] [address] Jul, Abdominal pain R10.9 and Hyp ertension I10 [facility] [address] [id number] [address] [place] [address] Jul, [facility] [address] [facility] [id number] [address] [place] [address] Jul, Major depressive disorder, r ecurrent episode, moderate F33.1 [facility] [address] [facility] [id number] [address] [place] [address] Jul, [facility] [address] [id number] [address] [place] [address] Jul, [facility] [address] [facility] [id number] [address] [place] [address] Jun, [facility] [address] [facility] [id number] [address] [place] [address] Jun, Depressive disorder, not els ewhere classified F32.9 [facility] [address] [id number] [address] [place] [address] Jun, [facility] [address] [id number] [address] [place] [address] Jun, [facility] [address] [id number] [address] [place] [address] Jun, Arthralgia of hip, unspecifi ed laterality M25.559 ; Bruising, spontaneous R23.3 and Night sweats R61 [facility] [address] [id number] [address] [place] [address] Jun, [facility] [address] [id number] [address] [place] [address] Jun, [facility] [address] [facility] [id number] [address] [place] [address] May, [facility] [address] [facility] [id number] [address] [place] [address] May, Myalgia M79.1 and Screening, lipid Z13.220 [facility] [address] [facility] [id number] [address] [place] [address] Apr, Status post cervical spinal fusion Z98.1 ; Fibromyalgia M79.7 and Unsteady gait R26.81 [facility] [address] [id number] [address] [place] [address] Nov, [facility] [address] [id number] [address] [place] [address] Nov, [facility] [address] [id number] [address] [place] [address] October, [facility] [address] [facility] [id number] [address] [place] [address] October, [facility] [address] [facility] [id number] [address] [place] [address] October, [facility] [address] [id number] [address] [place] [address] October, [facility] [address] [id number] [address] [place] [address] October, [facility] [address] [id number] [address] [place] [address] October, Dysuria 788.1 ; Nausea 787.0 2 and Urinary tract infection 599.0 [facility] [address] [id number] [address] [place] [address] Sep, [facility] [address] [id number] [address] [place] [address] Sep, [facility] [address] [id number] [address] [place] [address] Aug, [facility] [address] [id number] [address] [place] [address] Aug, [facility] [address] [id number] [address] [place] [address] Aug, [facility] [address] [id number] [address] [place] [address] Aug, [facility] [address] [id number] [address] [place] [address] Aug, [facility] [address] [id number] [address] [place] [address] Aug, [facility] [address] [id number] [address] [place] [address] Aug, [facility] [address] [id number] [address] [place] [address] Aug, [facility] [address] [id number] [address] [place] [address] Aug, [facility] [address] [id number] [address] [place] [address] Aug, [facility] [address] [id number] [address] [place] [address], [place] [address] 18 Aug, 2014 [facility] [address] [id number] [address] [place] [address], [place] [address] 13 Aug, 2014 [facility] [address] [id number] [address] [place] [address], [place] [address] 13 Aug, 2014 [facility] [address] [id number] [address] [place] [address], [place] [address] 11 Aug, 2014 [facility] [address] [id number] [address] [place] [address], [place] [address] 11 Aug, 2014 [facility] [address] [id number] [address] [place] [address], [place] [address] 06 Aug, 2014 [facility] [address] [id number] [address] [place] [address], [place] [address] 06 Aug, 2014 [facility] [address] [id number] [address] [place] [address], [place] [address] 05 Aug, 2014 [facility] [address] [id number] [address] [place] [address], [place] [address] 05 Aug, 2014 [facility] [address] [id number] [address] [place] [address], [place] [address] Aug, [facility] [address] [id number] [address] [place] [address], [place] [address] Aug, [facility] [address] [id number] [address] [place] [address], [place] [address] Aug, [facility] [address] [id number] [address] [place] [address], [place] [address] Jul, [facility] [address] [id number] [address] [place] [address], [place] [address] Jul, [facility] [address] [id number] [address] [place] [address], [place] [address] Jul, [facility] [address] [id number] [address] [place] [address], [place] [address] Jul, 2014 [facility] [address] [id number] [address] [place] [address], [place] [address] Jul, 2014 [facility] [address] [id number] [address] [place] [address], [place] [address] Jul, 2014 [facility] [address] [id number] [address] [place] [address], [place] [address] Jul, 2014 [facility] [address] [id number] [address] [place] [address], [place] [address] Jul, 2014 [facility] [address] [id number] [address] [place] [address], [place] [address] Jul, 2014 [facility] [address] [id number] [address] [place] [address], [place] [address] Jul, 2014 [facility] [address] [id number] [address] [place] [address], [place] [address] Jul, 2014 [facility] [address] [id number] [address] [place] [address], [place] [address] Jul, [facility] [address] [id number] [address] [place] [address], [place] [address] Jul, [facility] [address] [id number] [address] [place] [address], [place] [address] Jul, [facility] [address] [id number] [address] [place] [address], [place] [address] Jun, [facility] [address] [id number] [address] [place] [address] Jun, [facility] [address] [id number] [address] [place] [address] Jun, [facility] [address] [id number] [address] [place] [address] Jun, [facility] [address] [id number] [address] [place] [address] Jun, [facility] [address] [id number] [address] [place] [address], [place] [address] Jun, [facility] [address] [id number] [address] [place] [address], [place] [address] May, [facility] [address] [id number] [address] [place] [address], [place] [address] May, [facility] [address] [id number] [address] [place] [address], [place] [address] May, [facility] [address] [id number] [address] [place] [address], [place] [address] May, [facility] [address] [id number] [address] [place] [address], [place] [address] May, [facility] [address] [id number] [address] [place] [address], [place] [address] May, [facility] [address] [id number] [address] [place] [address], [place] [address] Apr, [facility] [address] [id number] [address] [place] [address], [place] [address] Apr, [facility] [address] [id number] [address] [place] [address], [place] [address] Apr, [facility] [address] [id number] [address] [place] [address], [place] [address] Apr, [facility] [address] [id number] [address] [place] [address], [place] [address] Apr, [facility] [address] [id number] [address] [place] [address], [place] [address] Apr, [facility] [address] [id number] [address] [place] [address], [place] [address] Mar, [facility] [address] [id number] [address] [place] [address], [place] [address] Mar, [facility] [address] [id number] [address] [place] [address], [place] [address] Mar, [facility] [address] [id number] [address] [place] [address], [place] [address] Mar, 2013 [facility] [address] [id number] [address] [place] [address], [place] [address] Mar, 2013 [facility] [address] [id number] [address] [place] [address], [place] [address] Mar, 2013 [facility] [address] [id number] [address] [place] [address], [place] [address] Mar, 2013 [facility] [address] [id number] [address] [place] [address], [place] [address] Mar, 2013 [facility] [address] [id number] [address] [place] [address], [place] [address] Mar, [facility] [address] [id number] [address] [place] [address], [place] [address] Mar, [facility] [address] [id number] [address] [place] [address], [place] [address] Mar, [facility] [address] [id number] [address] [place] [address], [place] [address] Mar, [facility] [address] [id number] [address] [place] [address], [place] [address] 30 Feb, 2013 [facility] [address] [id number] [address] [place] [address], [place] [address] 29 Sep, 2013 [facility] [address] [id number] [address] [place] [address] 29 Sep, 2013 [facility] [address] [id number] [address] [place] [address], [place] [address] 23 Sep, 2013 [facility] [address] [id number] [address] [place] [address], [place] [address] 23 Sep, 2013 [facility] [address] [id number] [address] [place] [address], [place] [address] 08 Sep, 2013 [facility] [address] [id number] [facility] [place] [address] Feb, [facility] [address] [id number] [address] [place] [address], [place] [address] Jan, [facility] [address] [id number] [address] [place] [address], [place] [address] Jan, [facility] [address] [id number] [address] [place] [address], [place] [address] Jan, [facility] [address] [id number] [address] [place] [address], [place] [address] Dec, [facility] [address] [id number] [address] [place] [address], [place] [address] Dec, [facility] [address] [id number] [address] [place] [address], [place] [address] Dec, [facility] [address] [id number] [address] [place] [address], [place] [address] Dec, [facility] [address] [id number] [address] [place] [address], [place] [address] Sep, [facility] [address] [id number] [address] [place] [address], [place] [address] Sep, [facility] [address] [id number] [address] [place] [address], [place] [address] Sep, [facility] [address] [id number] [address] [place] [address], [place] [address] Sep, [facility] [address] [id number] [address] [place] [address], [place] [address] Sep, [facility] [address] [id number] [address] [place] [address], [place] [address] Sep, [facility] [address] [id number] [address] [place] [address], [place] [address] Sep, [facility] [address] [id number] [address] [place] [address], [place] [address] Sep, [facility] [address] [id number] [address] [place] [address], [place] [address] Aug, [facility] [address] [id number] [address] [place] [address], [place] [address] Aug, [facility] [address] [id number] [address] [place] [address], [place] [address] May, [facility] [address] [id number] [address] [place] [address], [place] [address] May, [facility] [address] [id number] [address] [place] [address], [place] [address] Apr, [facility] [address] [id number] [address] [place] [address], [place] [address] Apr, [facility] [address] [id number] [address] [place] [address], [place] [address] Apr, [facility] [address] [id number] [address] [place] [address], [place] [address] Apr, [facility] [address] [id number] [address] [place] [address], [place] [address] Apr, [facility] [address] [id number] [address] [place] [address], [place] [address] Apr, [facility] [address] [id number] [address] [place] [address], [place] [address] May, [facility] [address] [id number] [address] [place] [address], [place] [address] 18 May, 2012 [facility] [address] [id number] [address] [place] [address], [place] [address] 15 May, 2012 [facility] [address] [id number] [address] [place] [address], [place] [address] 15 May, 2012 [facility] [address] [id number] [address] [place] [address], [place] [address] 13 May, 2012 [facility] [address] [id number] [address] [place] [id number] 13 May, 2012 [facility] [address] [id number] [address] [place] [address], [place] [address] 13 Apr, 2012 [facility] [address] [id number] [address] [place] [id number] 13 Apr, 2012 [facility] [address] [id number] [address] [place] [address], [place] [address] 08 Apr, 2012 [facility] [address] [id number] [address] [place] [id number] 08 Apr, 2012 [facility] [address] [id number] [address] [place] [address], [place] [address] Apr, [facility] [address] [id number] [address] [place] [address], [place] [address] Apr, [facility] [address] [id number] [address] [place] [id number] Apr, [facility] [address] [id number] [address] [place] [phone] Apr, [facility] [address] [id number] [address] [place] [address], [place] [address] Apr, [facility] [address] [id number] [address] [place] [id number] Apr, [facility] [address] [id number] [address] [place] [id number] Mar, [facility] [address] [id number] [address] [place] [address] Mar, [facility] [address] [id number] [address] [place] [address] Mar, [facility] [address] [id number] [address] [place] [address] Mar, [facility] [address] [id number] [address] [place] [phone] Mar, [facility] [address] [id number] [address] [place] [address], [place] [address] Mar, [facility] [address] [id number] [address] [place] [address], [place] [address] Mar, [facility] [address] [id number] [address] [place] [address], [place] [address] Mar, [facility] [address] [id number] [address] [place] [address], [place] [address] Mar, [facility] [address] [id number] [address] [place] [address], [place] [address] 25 Feb, 2012 [facility] [address] [id number] [address] [place] [address], [place] [address] 16 Feb, 2012 [facility] [address] [id number] [address] [place] [address], [place] [address] Feb, [facility] [address] [id number] [address] [place] [address], [place] [address] Jan, [facility] [address] [id number] [address] [place] [address], [place] [address] Jan, [facility] [address] [id number] [address] [place] [address], [place] [address] Jan, [facility] [address] [id number] [address] [place] [address], [place] [address] Jan, [facility] [address] [id number] [address] [place] [address], [place] [address] Jan, [facility] [address] [id number] [address] [place] [address], [place] [address] Jan, [facility] [address] [id number] [address] [place] [address], [place] [address] 16 Jan, 2012 [facility] [address] [id number] [address] [place] [address], [place] [address] 15 Jan, 2012 [facility] [address] [id number] [address] [place] [address], [place] [address] Jan, [facility] [address] [id number] [address] [place] [address], [place] [address] Jan, [facility] [address] [id number] [address] [place] [address], [place] [address] Dec, [facility] [address] [id number] [address] [place] [address], [place] [address] Dec, [facility] [address] [id number] [address] [place] [address], [place] [address] Dec, [facility] [address] [id number] [address] [place] [address], [place] [address] Dec, [facility] [address] [id number] [address] [place] [address], [place] [address] Nov, [facility] [address] [id number] [address] [place] [address], [place] [address] Nov, [facility] [address] [id number] [address] [place] [address], [place] [address] Nov, [facility] [address] [id number] [address] [place] [address], [place] [address] October, [facility] [address] [id number] [address] [place] [address], [place] [address] October, [facility] [address] [id number] [address] [place] [address], [place] [address] October, [facility] [address] [id number] [address] [place] [address], [place] [address] October, [facility] [address] [id number] [address] [place] [address], [place] [address] October, [facility] [address] [id number] [address] [place] [address], [place] [address] October, [facility] [address] [id number] [address] [place] [address], [place] [address] Aug, [facility] [address] [id number] [address] [place] [id number] 10 Mar, 2011 [facility] [address] [facility] [id number] [address] [place] [address] 16 Nov, 2010 [facility] [address] [facility] [id number] [address] [place] [phone] May, [facility] [address] [facility] [id number] [address] [place] [id number] May, [facility] [address] [facility] [id number] [address] [place] [address] Apr, [facility] [address] [facility] [id number] [address] [place] [address] Mar, [facility] [address] [facility] [id number] [address] [place] [address] Mar, IMMUNIZATIONS No Known Immunizations SOCIAL HISTORY Never Assessed REASON FOR VISIT f/u PLAN OF CARE Activity Details Follow Up Next available Reason: F/U VITAL SIGNS MEDICATIONS Unknown Medications RESULTS No Results PROCEDURES Procedure Date Ordered Result Body Site [facility] VISIT MENTAL HEALTH ESTAB PT December 24, 2017 Psychotherapy, patient &/family, 30 minutes, established pat ient December 24, 2017 INSTRUCTIONS MEDICATIONS ADMINISTERED No Known Medications MEDICAL (GENERAL) HISTORY Type Description Date Medical History Severe spinal stenosis throu cervical spine CT and MRI done 10/2014 at [facility] [place] with Neurosurgery at Medical History Migraine BERA [...]
--- OUTSIDE RECORDS SUMMARY | 2019-06-19 05:31 | XMS REPORT ---
Author Author Sydnie SQUIRES Organization [facility] Address [address] [place] [address] Care Team Providers Care Grader Marker Name Role Phone MIRIAN SQUIRES Unavailable PROBLEMS Type Condition ICD9-CM Code ABA69-QA Code Onset Dates Condition S tatus SNOMED Code Problem Hormone replacement therapy Z79.890 Ac tive 334212235 Problem Abnormal CT scan, head R93.0 Active 047359008 Problem Sensorineural hearing loss (SNHL) of both ears H90 .3 Active 264319176 Problem History of colon polyps Z86.010 Active 368798927 Problem Bruising, spontaneous R23.3 Active 925703841 Problem Generalized anxiety disorder F41.1 A ctive 19542421 Problem Arthralgia of hip, unspecified laterality M25.559 Active 86179944 Problem Hematuria, unspecified type R31.9 Ac tive 47686756 Problem Imbalance R26.89 Active 410405214 Problem Hammer toe of right foot M20.41 Activ e 540274309 Problem Plantar wart of right foot B07.0 Act mitchell [id number] Problem Sciatica of left side M54.32 Active 90703479 Problem Hyperlipidemia, unspecified hyperlipidemia type E7 8.5 Active 69922133 Problem Hypertension I10 Active 1901262 3 Problem Night sweats R61 Active 2822242 0 Problem Fibromyalgia M79.7 Active 7275189 7 Problem Major depressive disorder, recurrent episode, moderate F33.1 Active 788841635 Problem Acute left-sided low back pain with left-sided sciatica M54.42 Active 393969447 Problem Bladder spasm N32.89 Active 224133 006 Problem Gastritis without bleeding, unspecified chronicity, unspecified gastritis type K29.70 Active 446749891 Problem Bipolar 1 disorder, mixed F31.60 Acti ve 89924659 Problem Grief F43.20 Active 83194049 Problem Other chronic pain G89.29 Active 8 5372533 Problem Allergic rhinitis J30.9 Active 61 546683 Problem Hot flashes due to menopause N95.1 A ctive 512256645 Problem Ataxia R27.0 Active 84187316 Problem Hearing loss, unspecified laterality H91.90 Active 01313313 ALLERGIES No Information ENCOUNTERS Encounter Location Date Diagnosis [facility] [address] [facility] [id number] [address] [place] [address] Mar, [facility] [address] [facility] [id number] [address] [place] [address] Mar, [facility] [address] [facility] [id number] [address] [place] [address] Feb, [facility] [address] [facility] [id number] [address] [place] [address] Feb, [facility] [address] [place] [id number] [address] [place] [address] Jan, [facility] [address] [facility] [id number] [address] [place] [address] Jan, Low back pain M54.5 ; Hyperl ipidemia, unspecified hyperlipidemia type E78.5 and Bipolar 1 disorder, mixed F31.60 [place] [address] [place] [id number] [address] [place] [address] Jan, Bipolar 1 disorder, mixed F3 1.60 [place] [address] [facility] [id number] [address] [place] [address] Jan, Bipolar 1 disorder, mixed F3 1.60 [place] [address] [facility] [id number] [address] [place] [address] Jan, Bipolar 1 disorder, mixed F3 1.60 [place] [address] [place] [id number] [address] [place] [address] Jan, Bipolar 1 disorder, mixed F3 1.60 [facility] [address] [place] [id number] [address] [place] [address] Dec, Bipolar 1 disorder, mixed F3 1.60 ; Generalized anxiety disorder F41.1 and 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 [facility] [address] [facility] [id number] [address] [place] [address] 16 Dec, 2017 Other usp (current) dr bin therapy Z79.899 [facility] [address] [facility] [id number] [address] [place] [address] Dec, Bipolar 1 disorder, mixed F3 1.60 [facility] [address] [facility] [id number] [address] [place] [address] Dec, Bipolar 1 disorder, mixed F3 1.60 [facility] [address] [facility] [id number] [address] [place] [address] Nov, Bipolar 1 disorder, mixed F3 1.60 [facility] [address] [facility] [id number] [address] [place] [address] Nov, Bipolar 1 disorder, mixed F3 1.60 [facility] [address] [facility] [id number] [address] [place] [address] Nov, Bipolar 1 disorder, mixed F3 1.60 [facility] [address] [facility] [id number] [address] [place] [address] Nov, Allergic rhinitis J30.9 [facility] [address] [facility] [id number] [address] [place] [address] Nov, Allergic rhinitis J30.9 [facility] [address] [facility] [id number] [address] [place] [address] Nov, [facility] [address] [facility] [id number] [address] [place] [address] Nov, Bipolar 1 disorder, mixed F3 1.60 [facility] [address] [facility] [id number] [address] [place] [address] Nov, Fibromyalgia M79.7 and Aller gic rhinitis J30.9 [facility] [address] [facility] [id number] [address] [place] [address] October, Bipolar 1 disorder, mixed F3 1.60 [facility] [address] [facility] [id number] [address] [place] [address] October, Acute nasopharyngitis J00 [facility] [address] [facility] [id number] [address] [place] [address] October, Bitten or stung by nonvenomo us insect and other nonvenomous arthropods, initial encounter W57.XXXA and Insect bite (nonvenomous) of abdominal wall, initial encounter S30.861A [facility] [address] [facility] [id number] [address] [place] [address] October, Insect bite (nonvenomous) of abdominal wall, initial encounter S30.861A ; Bitten or stung by nonvenomous insect and other nonvenomous arthropods, initial encounter W57.XXXA ; Allergic rhinitis J30.9 and Low back pain M54.5 [facility] [address] [place] [id number] [address] [place] [address] October, Bipolar 1 disorder, mixed F3 1.60 [facility] [address] [facility] [id number] [address] [place] [address] October, [facility] [address] [place] [id number] [address] [place] [address] October, [facility] [address] [place] [id number] [address] [place] [address] October, Bipolar 1 disorder, mixed F3 1.60 [facility] [address] [place] [id number] [address] [place] [address] Sep, Bipolar 1 disorder, mixed F3 1.60 [facility] [address] [facility] [id number] [address] [place] [address] Sep, Other chronic pain G89.29 [facility] [address] [facility] [id number] [address] [place] [address] Sep, [facility] [address] [place] [id number] [address] [place] [address] Sep, Bipolar 1 disorder, mixed F3 1.60 [facility] [address] [facility] [id number] [address] [place] [address] Sep, Allergic rhinitis J30.9 and Sciatica of left side M54.32 [facility] [address] [facility] [id number] [address] [place] [address] Sep, Bipolar 1 disorder, mixed F3 1.60 [facility] [address] [facility] [id number] [address] [place] [address] Sep, Bipolar 1 disorder, mixed F3 1.60 and Generalized anxiety disorder F41.1 [facility] [address] [place] [id number] [address] [place] [address] Aug, [facility] [address] [place] [id number] [address] [place] [address] Aug, Bipolar 1 disorder, mixed F3 1.60 [facility] [address] [place] [id number] [address] [place] [address] Aug, Bipolar 1 disorder, mixed F3 1.60 [facility] [address] [facility] [id number] [address] [place] [address] Aug, [facility] [address] [place] [id number] [address] [place] [address] Aug, Generalized anxiety disorder F41.1 [facility] [address] [place] [id number] [address] [place] [address] Aug, Bipolar 1 disorder, mixed F3 1.60 [facility] [address] [facility] [id number] [address] [place] [address] Aug, Plantar wart of right foot B 07.0 [facility] [address] [facility] [id number] [address] [place] [address] Aug, Bipolar 1 disorder, mixed F3 1.60 [facility] [address] [place] [id number] [address] [place] [address] Jul, Bipolar 1 disorder, mixed F3 1.60 [facility] [address] [facility] [id number] [address] [place] [address] Jul, [facility] [address] [facility] [id number] [address] [place] [id number] 14 Jul, 2017 Bipolar 1 disorder, mixed F3 1.60 [facility] [address] [facility] [id number] [address] [place] [address] Jul, Generalized anxiety disorder F41.1 [facility] [address] [facility] [id number] [address] [place] [address] Jul, Bipolar 1 disorder, mixed F3 1.60 [facility] [address] [facility] [id number] [address] [place] [address] Jul, Acute left-sided low back pa in with left-sided sciatica M54.42 [facility] [address] [place] [id number] [address] [place] [address] Jul, Coccydynia M53.3 [facility] [address] [facility] [id number] [address] [place] [address] Jun, Bipolar 1 disorder, mixed F3 1.60 [facility] [address] [facility] [id number] [address] [place] [address] Jun, Acute nasopharyngitis J00 [facility] [address] [facility] [id number] [address] [place] [address] Jun, Bipolar 1 disorder, mixed F3 1.60 [facility] [address] [facility] [id number] [address] [place] [address] Jun, Fibromyalgia M79.7 [facility] [address] [facility] [id number] [address] [place] [address] Jun, Bipolar 1 disorder, mixed F3 1.60 [facility] [address] [facility] [id number] [address] [place] [address] Jun, Fibromyalgia M79.7 and Bipol ar 1 disorder, mixed F31.60 [place] [address] [place] [id number] [address] [place] [address] May, Bipolar 1 disorder, mixed F3 1.60 ; Generalized anxiety disorder F41.1 and Other usp (current) drug therapy Z79.899 [place] [address] [place] [id number] [address] [place] [address] May, Bipolar 1 disorder, mixed F3 1.60 [facility] [address] [address] 14 May, 2017 Cough R05 and Body aches R52 [facility] [address] [address] 10 May, 2017 Bladder spasm N32.89 [address] Acu te cystitis without hematuria N30.00 [place] [address] [address] 07 May, 2017 Bipolar 1 disorder, mixed F3 1.60 [place] [address] [address] 30 Apr, 2017 [place] [address] [address] Apr, Major depressive disorder, r ecurrent episode, moderate F33.1 and Encounter for immunization Z23 [place] [address] [address] Apr, Bipolar 1 disorder, mixed F3 1.60 [place] [address] [address] Apr, Bipolar 1 disorder, mixed F3 1.60 [place] [address] [address] 16 Apr, 2017 Bipolar 1 disorder, mixed F3 1.60 [place] [address] [address] 13 Apr, 2017 Yeast vaginitis B37.3 [place] [address] [place] [address] [place] [address] 09 Apr, 2017 Bipolar 1 disorder, mixed F3 1.60 [facility] [address] [place] [id number] [address] [place] [address] 07 Apr, 2017 Cellulitis L03.[address] for immunization Z23 [facility] [address] [place] [address] Apr, Bipolar 1 disorder, mixed F3 1.60 [facility] [address] [place] [id number] [address] [place] [address] Mar, Bipolar 1 disorder, mixed F3 1.60 [facility] [address] [address] Mar, Bipolar 1 disorder, mixed F3 1.60 [facility] [address] [address] Mar, Imbalance R26.89 and Encount er for immunization Z23 [facility] [address] [place] [id number] [address] [place] [address] Mar, Generalized anxiety disorder F41.1 [facility] [address] [address] Mar, Bipolar 1 disorder, mixed F3 1.60 [facility] [address] [place] [id number] [address] [place] [address] Mar, Generalized anxiety disorder F41.1 [facility] [address] [place] [id number] [address] [place] [address] Mar, Bipolar 1 disorder, mixed F3 1.60 [facility] [address] [place] [id number] [address] [place] [address] Mar, Bipolar 1 disorder, mixed F3 1.60 [facility] [address] [place] [id number] [address] [place] [address] Feb, Bipolar 1 disorder, mixed F3 1.60 [facility] [address] [id number] [place] [address], [place] [address] Feb, Bipolar 1 disorder, mixed F3 1.60 and Generalized anxiety disorder F41.1 [place] [address] [address] Feb, Gastritis without bleeding, unspecified chronicity, unspecified gastritis type K29.70 ; Hammer toe of right foot M20.41 and Other viral warts B07.8 [place] [address] [address] Feb, Bipolar 1 disorder, mixed F3 1.60 [place] [address] [address] Feb, Bipolar 1 disorder, mixed F3 1.60 [place] [address] [address] 05 Feb, 2017 Bipolar 1 disorder, mixed F3 1.60 [place] [address] [address] Jan, Encounter for screening mamm ogram for breast cancer Z12.31 ; Other viral warts B07.8 and Allergic rhinitis J30.9 [place] [address] [address] Jan, Bipolar 1 disorder, mixed F3 1.60 [place] [address] [address] Jan, Bipolar 1 disorder, mixed F3 1.60 [place] [address] [place] [id number] [address] [place] [address] Jan, [place] [address] [address] Jan, Bipolar 1 disorder, mixed F3 1.60 [place] [address] [address] Jan, Bipolar 1 disorder, mixed F3 1.60 [place] [address] [address] Jan, Allergic rhinitis J30.9 ; He maturia R31.9 and Colon cancer screening Z12.11 [place] [address] [place] [id number] [address] [place] [address] Dec, Bipolar 1 disorder, mixed F3 1.60 [place] [address] [place] [id number] [address] [place] [address] Dec, Bipolar 1 disorder, mixed F3 1.60 ; Generalized anxiety disorder F41.1 and Other usp (current) drug therapy Z79.899 [place] [address] [place] [id number] [address] [place] [address] Dec, Bipolar 1 disorder, mixed F3 1.60 [place] [address] [place] [id number] [address] [place] [address] Dec, Bipolar 1 disorder, mixed F3 1.60 [place] [address] [place] [id number] [address] [place] [address] Dec, Bipolar 1 disorder, mixed F3 1.60 [place] [address] [place] [id number] [address] [place] [address] Dec, Low back pain M54.5 and Recu rrent urinary tract infection N39.0 [place] [address] [place] [id number] [address] [place] [address] Nov, Bipolar 1 disorder, mixed F3 1.60 [place] [address] [place] [id number] [address] [place] [address] Nov, Bipolar 1 disorder, mixed F3 1.60 [place] [address] [place] [id number] [address] [place] [address] Nov, Bipolar 1 disorder, mixed F3 1.60 [place] [address] [place] [id number] [address] [place] [address] Nov, Bipolar 1 disorder, mixed F3 1.60 [place] [address] [place] [id number] [address] [place] [address] Nov, [place] [address] [address] Nov, Anesthesia of skin R20.0 ; F requent UTI N39.0 ; Tobacco abuse Z72.0 and Colon cancer screening Z12.11 [place] [address] [place] [id number] [address] [place] [address] Nov, Bipolar 1 disorder, mixed F3 1.60 [place] [address] [address] October, Bipolar 1 disorder, mixed F3 1.60 [place] [address] [place] [address] October, Bipolar 1 disorder, mixed F3 1.60 [place] [address] [address] October, Bipolar 1 disorder, mixed F3 1.60 [place] [address] [address] October, Bipolar 1 disorder, mixed F3 1.60 [place] [address] [address] October, Bipolar 1 disorder, mixed F3 1.60 [place] [address] [address] October, Cervicalgia M54.2 and Bipola r 1 disorder, mixed F31.60 [place] [address] [place] [id number] [address] [place] [address] October, Hypertension I10 ; Hyperlipi demia, unspecified hyperlipidemia type E78.5 and Family history of thyroid disease Z83.49 [place] [address] [place] [id number] [address] [place] [address] October, [place] [address] [place] [id number] [place] [address] October, Hypertension I10 ; Hyperlipi demia, unspecified hyperlipidemia type E78.5 and Family history of thyroid problem Z83.49 [place] [address] [place] [id number] [address] [place] [address] October, Bipolar 1 disorder, mixed F3 1.60 [place] [address] [place] [id number] [address] [place] [address] Sep, Bipolar 1 disorder, mixed F3 1.60 [place] [address] [place] [id number] [address] [place] [address] Sep, Bipolar 1 disorder, mixed F3 1.60 [place] [address] [address] Sep, Bipolar 1 disorder, mixed F3 1.60 [place] [address] [place] [id number] [place] [address] Sep, History of colon polyps Z86. 010 and Hematochezia K92.1 [place] [address] [place] [address] Sep, Major depressive disorder, r ecurrent episode, moderate F33.1 [place] [address] [place] [id number] [address] [place] [address] Sep, Bipolar 1 disorder, mixed F3 1.60 [place] [address] [place] [id number] [address] [place] [address] Aug, Hot flashes due to menopause N95.1 [facility] [address] [place] [id number] [address] [place] [address] Aug, Bipolar 1 disorder, mixed F3 1.60 [place] [address] [place] [address] Aug, [place] [address] [place] [id number] [address] [place] [address] Aug, Bipolar 1 disorder, mixed F3 1.60 [place] [address] [place] [id number] [address] [place] [address] Aug, Bipolar 1 disorder, mixed F3 1.60 [place] [address] [address] Aug, Hot flashes due to menopause N95.1 ; Cervicalgia M54.2 and Ataxia R27.0 [place] [address] [address] Jul, Bipolar 1 disorder, mixed F3 1.60 [place] [address] [place] [address] Jul, Bipolar 1 disorder, mixed F3 1.60 [place] [address] Jul, Bipolar 1 disorder, mixed F3 1.60 [place] [address] [address] Jul, Bipolar 1 disorder, mixed F3 1.60 [place] [address] [address] Jul, Bipolar 1 disorder, mixed F3 1.60 [place] [address] [address] Jul, Cervicalgia M54.2 ; Tremor R 25.1 ; Hearing abnormally acute, unspecified laterality H93.239 ; Alopecia L65.9 ; Encounter for immunization Z23 and Family history of thyroid disease Z83.49 [place] [address] [address] Jul, Bipolar 1 disorder, mixed F3 1.60 [place] [address] [place] [id number] Jun, [place] [address] [place] [id number] Jun, Hearing disorder, unspecifie d laterality H93.299 [place] [address] [place] [id number] Jun, Bipolar 1 disorder, mixed F3 1.60 [facility] [address] [id number] [address] [place] [address] Jun, Bipolar 1 disorder, mixed F3 1.60 [facility] [address] [id number] [address] [place] [address] Jun, Allergic rhinitis J30.9 [facility] [address] [id number] [address] [place] [address] Jun, Bipolar 1 disorder, mixed F3 1.60 [facility] [address] [id number] [address] [place] [phone] Jun, Bipolar 1 disorder, mixed F3 1.60 [facility] [address] [id number] [address] [place] [id number] Jun, Allergic rhinitis J30.9 [facility] [address] [id number] [address] [place] [phone] Jun, Allergic rhinitis J30.9 [facility] [address] [id number] [address] [place] [id number] Jun, Bipolar 1 disorder, mixed F3 1.60 [facility] [address] [id number] [address] [place] [id number] May, Bipolar 1 disorder, mixed F3 1.60 [facility] [address] [id number] [address] [place] [id number] May, Bipolar 1 disorder, mixed F3 1.60 [facility] [address] [id number] [address] [place] [id number] May, [facility] [address] [facility] [id number] [address] [place] [phone] May, Bipolar 1 disorder, mixed F3 1.60 [facility] [address] [facility] [id number] [address] [place] [id number] May, Bipolar 1 disorder, mixed F3 1.60 [facility] [address] [facility] [id number] [address] [place] [phone] May, [facility] [address] [facility] [id number] [address] [place] [phone] May, [facility] [address] [facility] [id number] [address] [place] [id number] May, [facility] [address] [place] [id number] [address] [place] [id number] May, Abdominal pain, unspecified location R10.9 [facility] [address] [facility] [id number] [address] [place] [phone] May, [facility] [address] [place] [id number] [place] [phone] Apr, Hematuria R31.9 ; Ataxia R27 .0 and Hearing loss, unspecified laterality H91.90 [facility] [address] [place] [id number] [address] [place] [phone] Apr, Bipolar 1 disorder, mixed F3 1.60 [facility] [address] [facility] [id number] [address] [place] [id number] Apr, Acute effusion of both middl e ears H65.193 [facility] [address] [facility] [id number] [address] [place] [phone] Apr, Hematuria R31.9 and Pyelonep hritis N12 [facility] [address] [facility] [id number] 14 [place] [address] Apr, [facility] [address] [facility] [id number] [address] [place] [address] Mar, Bipolar 1 disorder, mixed F3 1.60 [facility] [address] [facility] [id number] [address] [place] [address] Mar, [facility] [address] [facility] [id number] [address] [place] [address] Mar, Bipolar 1 disorder, mixed F3 1.60 [place] [address] [place] [id number] [address] [place] [address] Mar, Bipolar 1 disorder, mixed F3 1.60 [place] [address] Mar, Encounter for immunization Z 23 and Gastritis without bleeding, unspecified chronicity, unspecified gastritis type K29.70 [place] [address] [place] [address] Mar, Bipolar 1 disorder, mixed F3 1.60 and Grief F43.20 [place] [address] Mar, Gastritis without bleeding, unspecified chronicity, unspecified gastritis type K29.70 [place] [address] Mar, Bipolar 1 disorder, mixed F3 1.60 [place] [address] [place] [address] Mar, Gastritis without bleeding, unspecified chronicity, unspecified gastritis type K29.70 [place] [address] [place] [address] Mar, [place] [address] [place] [address] Feb, Bipolar 1 disorder, mixed F3 1.60 [place] [address] [place] [address] Feb, Bipolar 1 disorder, mixed F3 1.60 and Grief F43.20 [place] [address] [place] [address] Feb, Gastritis without bleeding, unspecified chronicity, unspecified gastritis type K29.70 [place] [address] [place] [id number] [address] [place] [address] 14 Feb, 2016 Bipolar 1 disorder, mixed F3 1.60 [facility] [address] [facility] [id number] [address] [place] [address] Feb, Gastroesophageal reflux dise ase, esophagitis presence not specified K21.9 [facility] [address] [facility] [id number] [address] [place] [address] Jan, Bipolar 1 disorder, mixed F3 1.60 [facility] [address] [place] [id number] [address] [place] [address] Jan, Bipolar 1 disorder, mixed F3 1.60 and Unsteady gait R26.81 [facility] [address] [place] [id number] [address] [place] [address] Jan, Bipolar 1 disorder, mixed F3 1.60 [place] [address] [place] [id number] [address] [place] [address] Jan, Bipolar 1 disorder, mixed F3 1.60 and Other usp (current) drug therapy Z79.899 [place] [address] [address] Jan, Bipolar 1 disorder, mixed F3 1.60 [place] [address] [address] Jan, Bipolar 1 disorder, mixed F3 1.60 [place] [address] [place] [id number] [address] [place] [address] Jan, Bipolar 1 disorder, mixed F3 1.60 ; Grief F43.20 and 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 [place] [address] [place] [id number] [address] [place] [address] Jan, Bipolar 1 disorder, mixed F3 1.60 [place] [id number] [place] [address] Dec, [place] [address] [place] [id number] [address] [place] [address] Dec, Bipolar 1 disorder, mixed F3 1.60 ; Vitamin D deficiency, unspecified E55.9 ; H/O allergic rhinitis Z87.09 ; Other chronic pain G89.29 and Dorsalgia, unspecified M54.9 [place] [address] [id number] [address] [place] [address] Dec, [facility] [address] [facility] [id number] [address] [place] [address] Dec, Bipolar 1 disorder, mixed F3 1.60 [facility] [address] [facility] [id number] [address] [place] [address] Dec, Major depressive disorder, r ecurrent episode, moderate F33.1 [place] [address] [facility] [id number] [address] [place] [address] Dec, Major depressive disorder, r ecurrent episode, moderate F33.1 [place] [address] [facility] [id number] [address] [place] [address] Nov, [place] [address] [facility] [id number] [address] [place] [address] Nov, Bipolar 1 disorder, mixed F3 1.60 [place] [address] [facility] [id number] [address] [place] [address] Nov, Major depressive disorder, r ecurrent episode, moderate F33.1 [place] [address] [facility] [id number] [address] [place] [address] Nov, Cervicalgia M54.2 ; Arthralg ia of hip, unspecified laterality M25.559 ; Allergic rhinitis J30.9 and Hormone replacement therapy Z79.890 [facility] [address] [facility] [id number] [address] [place] [address] Nov, Other seasonal allergic rhin itis J30.2 [facility] [address] [facility] [id number] [address] [place] [address] October, Major depressive disorder, r ecurrent episode, moderate F33.1 [facility] [address] [facility] [id number] [address] [place] [address] October, Major depressive disorder, r ecurrent episode, moderate F33.1 and Arthralgia of hip, unspecified laterality M25.559 [place] [address] [facility] [id number] [address] [place] [address] October, Grief F43.20 ; Hypertension I10 ; Hyperlipidemia, unspecified hyperlipidemia type E78.5 ; Other chronic pain G89.29 and Allergic rhinitis, unspecified allergic rhinitis type J30.9 [place] [address] [facility] [id number] [address] [place] [address] October, Major depressive disorder, r ecurrent episode, moderate F33.1 [place] [address] [facility] [id number] [address] [place] [address] Sep, Major depressive disorder, r ecurrent episode, moderate F33.1 [place] [address] [place] [id number] [address] [place] [address] Sep, [place] [address] [place] [id number] [address] [place] [address] Sep, Major depressive disorder, r ecurrent episode, moderate F33.1 [place] [address] [facility] [id number] [address] [place] [address] Sep, Grief F43.20 [place] [address] [place] [id number] [address] [place] [address] Aug, Major depressive disorder, r ecurrent episode, moderate F33.1 [place] [address] [place] [id number] [address] [place] [address] Aug, Bipolar 1 disorder, mixed F3 1.60 [place] [address] [facility] [id number] [address] [place] [address] Aug, Allergic rhinitis J30.9 ; Ce rvicalgia M54.2 and Low back pain M54.5 [place] [address] [facility] [id number] [address] [place] [address] Aug, Major depressive disorder, r ecurrent episode, moderate F33.1 [facility] [address] [id number] [address] [place] [address] Aug, Sinusitis J32.9 and Tobacco 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 [facility] [address] [id number] [address] [place] [address] Aug, [facility] [address] [facility] [id number] [address] [place] [address] Aug, Depressive disorder, not els ewhere classified F32.9 ; Hormone replacement therapy Z79.[address] scan, head R93.0 [facility] [address] [id number] [address] [place] [address] Aug, Major depressive disorder, r ecurrent episode, moderate F33.1 [facility] [address] [facility] [id number] [address] [place] [address] Jul, Major depressive disorder, r ecurrent episode, moderate F33.1 [facility] [address] [facility] [id number] [address] [place] [address] Jul, Abdominal pain R10.9 and Hyp ertension I10 [facility] [address] [facility] [id number] [address] [place] [address] Jul, [facility] [address] [facility] [id number] [address] [place] [address] Jul, Major depressive disorder, r ecurrent episode, moderate F33.1 [facility] [address] [facility] [id number] [address] [place] [address] Jul, [facility] [address] [facility] [id number] [address] [place] [address] Jul, [facility] [address] [facility] [id number] [address] [place] [address] Jun, [facility] [address] [facility] [id number] [address] [place] [address] Jun, Depressive disorder, not els ewhere classified F32.9 [facility] [address] [id number] [address] [place] [address] Jun, [facility] [address] [id number] [address] [place] [address] Jun, [facility] [address] [id number] [address] [place] [address] Jun, Arthralgia of hip, unspecifi ed laterality M25.559 ; Bruising, spontaneous R23.3 and Night sweats R61 [facility] [address] [id number] [address] [place] [address] Jun, [facility] [address] [id number] [address] [place] [address] Jun, [facility] [address] [facility] [id number] [address] [place] [address] May, [facility] [address] [id number] [address] [place] [address] May, Myalgia M79.1 and Screening, lipid Z13.220 [facility] [address] [id number] [address] [place] [address] Apr, Status post cervical spinal fusion Z98.1 ; Fibromyalgia M79.7 and Unsteady gait R26.81 [facility] [address] [id number] [address] [place] [address] Nov, [facility] [address] [id number] [address] [place] [address] Nov, [facility] [address] [id number] [address] [place] [address] October, [facility] [address] [id number] [address] [place] [address] October, [facility] [address] [facility] [id number] [address] [place] [address] October, [facility] [address] [id number] [address] [place] [address] October, [facility] [address] [id number] [address] [place] [address] October, [facility] [address] [id number] [address] [place] [address] October, Dysuria 788.1 ; Nausea 787.0 2 and Urinary tract infection 599.0 [facility] [address] [id number] [address] [place] [address] Sep, [facility] [address] [id number] [address] [place] [address] Sep, [facility] [address] [id number] [address] [place] [address] Aug, [facility] [address] [id number] [address] [place] [address] Aug, [facility] [address] [id number] [address] [place] [address] Aug, [facility] [address] [id number] [address] [place] [address] Aug, [facility] [address] [id number] [address] [place] [address] Aug, [facility] [address] [id number] [address] [place] [address] Aug, [facility] [address] [id number] [address] [place] [address] Aug, [facility] [address] [id number] [address] [place] [address] Aug, [facility] [address] [id number] [address] [place] [address] Aug, [facility] [address] [id number] [address] [place] [address] Aug, [facility] [address] [id number] [facility] [place] [address] 18 Aug, 2014 [facility] [address] [id number] [facility] [place] [address] 13 Aug, 2014 [facility] [address] [id number] [address] [place] [address], [place] [address] 13 Aug, 2014 [facility] [address] [id number] [address] [place] [address], [place] [address] Aug, 2014 [facility] [address] [id number] [address] [place] [address], [place] [address] 11 Aug, 2014 [facility] [address] [id number] [address] [place] [address], [place] [address] Aug, [facility] [address] [id number] [address] [place] [address], [place] [address] Aug, 2014 [facility] [address] [id number] [address] [place] [address], [place] [address] 05 Aug, 2014 [facility] [address] [id number] [address] [place] [address], [place] [address] 05 Aug, 2014 [facility] [address] [id number] [address] [place] [address], [place] [address] Aug, [facility] [address] [id number] [address] [place] [address], [place] [address] Aug, [facility] [address] [id number] [address] [place] [address], [place] [address] Aug, [facility] [address] [id number] [address] [place] [address], [place] [address] Jul, [facility] [address] [id number] [address] [place] [address], [place] [address] Jul, [facility] [address] [id number] [address] [place] [address], [place] [address] Jul, [facility] [address] [id number] [address] [place] [address], [place] [address] Jul, [facility] [address] [id number] [address] [place] [address], [place] [address] Jul, [facility] [address] [id number] [address] [place] [address], [place] [address] Jul, [facility] [address] [id number] [address] [place] [address], [place] [address] Jul, 2014 [facility] [address] [id number] [address] [place] [address], [place] [address] Jul, 2014 [facility] [address] [id number] [address] [place] [address], [place] [address] Jul, [facility] [address] [id number] [address] [place] [address], [place] [address] Jul, [facility] [address] [id number] [address] [place] [address], [place] [address] Jul, [facility] [address] [id number] [address] [place] [address], [place] [address] Jul, [facility] [address] [id number] [address] [place] [address], [place] [address] Jul, [facility] [address] [id number] [address] [place] [address], [place] [address] Jul, [facility] [address] [id number] [address] [place] [address], [place] [address] Jun, [facility] [address] [id number] [address] [place] [address], [place] [address] Jun, [facility] [address] [id number] [address] [place] [address], [place] [address] Jun, [facility] [address] [id number] [address] [place] [address], [place] [address] Jun, [facility] [address] [id number] [address] [place] [address], [place] [address] Jun, [facility] [address] [id number] [address] [place] [address], [place] [address] Jun, [facility] [address] [id number] [address] [place] [address], [place] [address] May, [facility] [address] [id number] [address] [place] [address], [place] [address] May, [facility] [address] [id number] [address] [place] [address], [place] [address] May, [facility] [address] [id number] [address] [place] [address], [place] [address] May, [facility] [address] [id number] [address] [place] [address], [place] [address] May, [facility] [address] [id number] [address] [place] [address], [place] [address] May, [facility] [address] [id number] [address] [place] [address], [place] [address] Apr, [facility] [address] [id number] [address] [place] [address], [place] [address] Apr, [facility] [address] [id number] [address] [place] [address], [place] [address] Apr, [facility] [address] [id number] [address] [place] [address], [place] [address] Apr, [facility] [address] [id number] [address] [place] [address], [place] [address] Apr, [facility] [address] [id number] [address] [place] [address], [place] [address] Apr, [facility] [address] [id number] [address] [place] [address], [place] [address] Mar, [facility] [address] [id number] [address] [place] [address], [place] [address] Mar, [facility] [address] [id number] [address] [place] [address], [place] [address] Mar, [facility] [address] [id number] [address] [place] [address], [place] [address] Mar, 2013 [facility] [address] [id number] [address] [place] [address], [place] [address] Mar, 2013 [facility] [address] [id number] [address] [place] [address], [place] [address] Mar, 2013 [facility] [address] [id number] [address] [place] [address], [place] [address] Mar, 2013 [facility] [address] [id number] [address] [place] [address], [place] [address] Mar, 2013 [facility] [address] [id number] [address] [place] [address], [place] [address] Mar, 2013 [facility] [address] [id number] [address] [place] [address], [place] [address] Mar, 2013 [facility] [address] [id number] [address] [place] [address], [place] [address] Mar, 2013 [facility] [address] [id number] [address] [place] [address], [place] [address] Mar, [facility] [address] [id number] [address] [place] [address] 30 Feb, 2013 [facility] [address] [id number] [address] [place] [address] 29 Sep, 2013 [facility] [address] [id number] [address] [place] [address] 29 Sep, 2013 [facility] [address] [id number] [address] [place] [address], [place] [address] 23 Sep, 2013 [facility] [address] [id number] [address] [place] [address], [place] [address] 23 Feb, 2013 [facility] [address] [id number] [address] [place] [address] 08 Sep, 2013 [facility] [address] [id number] [address] [place] [address] Feb, [facility] [address] [id number] [facility] [place] [address] Jan, [facility] [address] [id number] [address] [place] [address], [place] [address] Jan, [facility] [address] [id number] [address] [place] [address], [place] [address] Jan, [facility] [address] [id number] [address] [place] [address], [place] [address] Dec, [facility] [address] [id number] [address] [place] [address], [place] [address] Dec, [facility] [address] [id number] [address] [place] [address], [place] [address] Dec, [facility] [address] [id number] [address] [place] [address], [place] [address] Dec, [facility] [address] [id number] [address] [place] [address], [place] [address] Sep, [facility] [address] [id number] [address] [place] [address], [place] [address] Sep, [facility] [address] [id number] [address] [place] [address], [place] [address] Sep, [facility] [address] [id number] [address] [place] [address], [place] [address] Sep, [facility] [address] [id number] [address] [place] [address], [place] [address] Sep, [facility] [address] [id number] [address] [place] [address], [place] [address] Sep, [facility] [address] [id number] [address] [place] [address], [place] [address] Sep, [facility] [address] [id number] [address] [place] [address], [place] [address] Sep, [facility] [address] [id number] [address] [place] [address], [place] [address] 10 Aug, 2013 [facility] [address] [id number] [address] [place] [address], [place] [address] 10 Aug, 2013 [facility] [address] [id number] [address] [place] [address], [place] [address] May, [facility] [address] [id number] [address] [place] [address], [place] [address] May, [facility] [address] [id number] [address] [place] [address], [place] [address] Apr, [facility] [address] [id number] [address] [place] [address], [place] [address] Apr, [facility] [address] [id number] [address] [place] [address], [place] [address] Apr, [facility] [address] [id number] [address] [place] [address], [place] [address] Apr, [facility] [address] [id number] [address] [place] [address], [place] [address] Apr, [facility] [address] [id number] [address] [place] [address], [place] [address] Apr, [facility] [address] [id number] [address] [place] [address], [place] [address] 18 May, 2012 [facility] [address] [id number] [address] [place] [address], [place] [address] 18 May, 2012 [facility] [address] [id number] [address] [place] [address], [place] [address] 15 May, 2012 [facility] [address] [id number] [address] [place] [address], [place] [address] 15 May, 2012 [facility] [address] [id number] [address] [place] [address], [place] [address] 13 May, 2012 [facility] [address] [id number] [address] [place], [place] [address] [address] May, [facility] [address] [id number] [address] [place] [address], [place] [address] Apr, [facility] [address] [id number] [address] [place] [address], [place] [address] Apr, [facility] [address] [id number] [address] [place] [address], [place] [address] Apr, [facility] [address] [id number] [address] [place] [address], [place] [address] Apr, [facility] [address] [id number] [address] [place] [address], [place] [address] Apr, [facility] [address] [id number] [address] [place] [address], [place] [address] Apr, [facility] [address] [id number] [address] [place] [address], [place] [address] Apr, [facility] [address] [id number] [address] [place] [address], [place] [address] Apr, [facility] [address] [id number] [address] [place] [address], [place] [address] Apr, [facility] [address] [id number] [address] [place] [address], [place] [address] Apr, [facility] [address] [id number] [address] [place] [address] Mar, [facility] [facility] [address] [id number] [address] [place] [id number] Mar, [facility] [address] [id number] [address] [place] [address], [place] [address] Mar, [facility] [address] [id number] [address] [place] [id number] Mar, [facility] [address] [id number] [address] [place] [id number] Mar, [facility] [address] [id number] [address] [place] [address], [place] [address] Mar, [facility] [address] [id number] [address] [place] [address], [place] [address] Mar, [facility] [address] [id number] [address] [place] [address], [place] [address] Mar, [facility] [address] [id number] [address] [place] [address], [place] [address] Mar, [facility] [address] [id number] [address] [place] [address], [place] [address] 25 Feb, 2012 [facility] [address] [id number] [address] [place] [address], [place] [address] 16 Feb, 2012 [facility] [address] [id number] [address] [place] [address], [place] [address] 11 Feb, 2012 [facility] [address] [id number] [address] [place] [address], [place] [address] Jan, [facility] [address] [id number] [address] [place] [address], [place] [address] Jan, [facility] [address] [id number] [address] [place] [address], [place] [address] Jan, [facility] [address] [id number] [address] [place] [address], [place] [address] Jan, [facility] [address] [id number] [address] [place] [address], [place] [address] Jan, [facility] [address] [id number] [address] [place] [address], [place] [address] 17 Jan, 2012 [facility] [address] [id number] [address] [place] [address], [place] [address] 16 Jan, 2012 [facility] [address] [id number] [address] [place] [address], [place] [address] 15 Jan, 2012 [facility] [address] [id number] [address] [place] [address], [place] [address] Jan, [facility] [address] [id number] [address] [place] [address], [place] [address] Jan, [facility] [address] [id number] [address] [place] [address], [place] [address] Dec, [facility] [address] [id number] [address] [place] [address], [place] [address] Dec, [facility] [address] [id number] [address] [place] [address], [place] [address] Dec, [facility] [address] [id number] [address] [place] [address], [place] [address] Dec, [facility] [address] [id number] [address] [place] [address], [place] [address] Nov, [facility] [address] [id number] [address] [place] [address], [place] [address] Nov, [facility] [address] [id number] [address] [place] [address], [place] [address] Nov, [facility] [address] [id number] [address] [place] [address], [place] [address] October, [facility] [address] [id number] [address] [place] [address], [place] [address] October, [facility] [address] [id number] [address] [place] [address], [place] [address] October, [facility] [address] [id number] [address] [place] [address], [place] [address] October, [facility] [address] [id number] [address] [place] [address], [place] [address] October, [facility] [address] [id number] [address] [place] [address], [place] [address] October, [facility] [address] [id number] [address] [place] [address], [place] [address] Aug, [facility] [address] [id number] [address] [address] 10 Mar, 2011 [facility] [address] [facility] [id number] [address] [place] [id number] 16 Nov, 2010 [facility] [address] [facility] [id number] [address] [place] [id number] May, [facility] [address] [facility] [id number] [address] [place] [id number] May, [facility] [address] [facility] [id number] [address] [place] [id number] Apr, [facility] [address] [facility] [id number] [address] [place] [id number] Mar, [facility] [address] [facility] [id number] [address] [place] [id number] Mar, IMMUNIZATIONS No Known Immunizations SOCIAL HISTORY [...]
--- OUTSIDE RECORDS SUMMARY | 2019-06-19 05:31 | XMS REPORT ---
Author Author Sydnie MORTON Organization [facility] Address [address] [place] [address] Care Team Providers Care [employer] Parts Sorter Name Role Phone JOHN MORTON Unavailable PROBLEMS Type Condition ICD9-CM Code ITG99-MI Code Onset Dates Condition S tatus SNOMED Code Problem Hormone replacement therapy Z79.890 Ac tive 316821191 Problem Abnormal CT scan, head R93.0 Active 841963972 Problem Sensorineural hearing loss (SNHL) of both ears H90 .3 Active 459299990 Problem History of colon polyps Z86.010 Active 782235982 Problem Bruising, spontaneous R23.3 Active 318043432 Problem Generalized anxiety disorder F41.1 A ctive 06194018 Problem Arthralgia of hip, unspecified laterality M25.559 Active 05157408 Problem Hematuria, unspecified type R31.9 Ac tive 28743238 Problem Imbalance R26.89 Active 813388238 Problem Hammer toe of right foot M20.41 Activ e 756130921 Problem Plantar wart of right foot B07.0 Act mitchell [id number] Problem Sciatica of left side M54.32 Active 47257347 Problem Hyperlipidemia, unspecified hyperlipidemia type E7 8.5 Active 18101958 Problem Hypertension I10 Active 4871474 3 Problem Night sweats R61 Active 8431026 0 Problem Fibromyalgia M79.7 Active 4609900 7 Problem Major depressive disorder, recurrent episode, moderate F33.1 Active 383101776 Problem Acute left-sided low back pain with left-sided sciatica M54.42 Active 620066695 Problem Bladder spasm N32.89 Active 630576 006 Problem Gastritis without bleeding, unspecified chronicity, unspecified gastritis type K29.70 Active 030718955 Problem Bipolar 1 disorder, mixed F31.60 Acti ve 90123830 Problem Grief F43.20 Active 33620142 Problem Other chronic pain G89.29 Active 8 1895828 Problem Allergic rhinitis J30.9 Active 61 993459 Problem Hot flashes due to menopause N95.1 A ctive 931909472 Problem Ataxia R27.0 Active 04946135 Problem Hearing loss, unspecified laterality H91.90 Active 32772482 ALLERGIES No Information ENCOUNTERS Encounter Location Date Diagnosis [facility] [address] [facility] [id number] [address] [place] [phone] Mar, [facility] [address] [facility] [id number] [address] [place] [phone] Feb, [facility] [address] [facility] [id number] [address] [place] [phone] Feb, [facility] [address] [facility] [id number] [address] [place] [phone] Jan, [facility] [address] [place] [id number] [address] [place] [phone] Jan, [facility] [address] [facility] [id number] [address] [place] [address] Jan, Bipolar 1 disorder, mixed F3 1.60 [facility] [address] [facility] [id number] [address] [place] [id number] Jan, Bipolar 1 disorder, mixed F3 1.60 [facility] [address] [facility] [id number] [address] [place] [address] Jan, Bipolar 1 disorder, mixed F3 1.60 [facility] [address] [facility] [id number] [address] [place] [address] Jan, Bipolar 1 disorder, mixed F3 1.60 [facility] [address] [facility] [id number] [address] [place] [address] Dec, Bipolar 1 disorder, mixed F3 1.60 ; Generalized anxiety disorder F41.1 and Other affiliate marketing coordinator (current) drug therapy Z79.899 [facility] [address] [facility] [id number] [address] [place] [address] Dec, Other affiliate marketing coordinator (current) dr bin therapy Z79.899 [facility] [address] [facility] [id number] [address] [place] [address] Dec, Bipolar 1 disorder, mixed F3 1.60 [facility] [address] [facility] [id number] [address] [place] [id number] Dec, Bipolar 1 disorder, mixed F3 1.60 [facility] [address] [facility] [id number] [address] [place] [id number] Nov, Bipolar 1 disorder, mixed F3 1.60 [facility] [address] [id number] [address] [place] [id number] Nov, Bipolar 1 disorder, mixed F3 1.60 [facility] [address] [facility] [id number] [address] [place] [id number] Nov, Bipolar 1 disorder, mixed F3 1.60 [facility] [address] [facility] [id number] [address] [place] [address] Nov, Allergic rhinitis J30.9 [facility] [address] [facility] [id number] [address] [place] [address] Nov, Allergic rhinitis J30.9 [facility] [address] [facility] [id number] [address] [place] [phone] Nov, [facility] [address] [facility] [id number] [address] [place] [phone] Nov, Bipolar 1 disorder, mixed F3 1.60 [facility] [address] [facility] [id number] [address] [place] [address] Nov, Fibromyalgia M79.7 and Aller gic rhinitis J30.9 [facility] [address] [facility] [id number] [address] [place] [address] October, Bipolar 1 disorder, mixed F3 1.60 [facility] [address] [facility] [id number] [address] [place] [address] October, Acute nasopharyngitis J00 [facility] [address] [facility] [id number] [address] [place] [address] October, Bitten or stung by nonvenomo us insect and other nonvenomous arthropods, initial encounter W57.XXXA and Insect bite (nonvenomous) of abdominal wall, initial encounter S30.861A [facility] [address] [id number] [address] [place] [address] October, Insect bite (nonvenomous) of abdominal wall, initial encounter S30.861A ; Bitten or stung by nonvenomous insect and other nonvenomous arthropods, initial encounter W57.XXXA ; Allergic rhinitis J30.9 and Low back pain M54.5 [facility] [address] [id number] [address] [place] [address] October, Bipolar 1 disorder, mixed F3 1.60 [facility] [address] [facility] [id number] [address] [place] [phone] October, [facility] [address] [facility] [id number] [address] [place] [phone] October, [facility] [address] [id number] [address] [place] [id number] October, Bipolar 1 disorder, mixed F3 1.60 [facility] [address] [id number] [address] [place] [id number] Sep, Bipolar 1 disorder, mixed F3 1.60 [facility] [address] [id number] [address] [place] [phone] Sep, Other chronic pain G89.29 [facility] [address] [id number] [address] [place] [id number] Sep, [facility] [address] [facility] [id number] [address] [place] [phone] Sep, Bipolar 1 disorder, mixed F3 1.60 [facility] [address] [facility] [id number] [address] [place] [address] Sep, Allergic rhinitis J30.9 and Sciatica of left side M54.32 [facility] [address] [facility] [id number] [address] [place] [address] Sep, Bipolar 1 disorder, mixed F3 1.60 [facility] [address] [facility] [id number] [address] [place] [address] Sep, Bipolar 1 disorder, mixed F3 1.60 and Generalized anxiety disorder F41.1 [facility] [address] [facility] [id number] [address] [place] [id number] Aug, [facility] [address] [facility] [id number] [address] [place] [id number] Aug, Bipolar 1 disorder, mixed F3 1.60 [facility] [address] [facility] [id number] [address] [place] [address] Aug, Bipolar 1 disorder, mixed F3 1.60 [facility] [address] [place] [id number] [address] [place] [phone] Aug, [facility] [address] [place] [id number] [address] [place] [address] Aug, Generalized anxiety disorder F41.1 [facility] [address] [facility] [id number] [address] [place] [address] Aug, Bipolar 1 disorder, mixed F3 1.60 [facility] [address] [facility] [id number] [address] [place] [address] Aug, Plantar wart of right foot B 07.0 [facility] [address] [facility] [id number] [address] [place] [phone] Aug, Bipolar 1 disorder, mixed F3 1.60 [facility] [address] [facility] [id number] [address] [place] [address] Jul, Bipolar 1 disorder, mixed F3 1.60 [facility] [address] [facility] [id number] [address] [place] [id number] Jul, [facility] [address] [place] [id number] [address] [place] [id number] 14 Jul, 2017 Bipolar 1 disorder, mixed F3 1.60 [facility] [address] [facility] [id number] [address] [place] [address] 09 Jul, 2017 Generalized anxiety disorder F41.1 [facility] [address] [place] [id number] [address] [place] [id number] Jul, Bipolar 1 disorder, mixed F3 1.60 [facility] [address] [place] [id number] [address] [place] [id number] Jul, Acute left-sided low back pa in with left-sided sciatica M54.42 [facility] [address] [place] [id number] [address] [place] [id number] Jul, Coccydynia M53.3 [facility] [address] [place] [id number] [address] [place] [id number] Jun, Bipolar 1 disorder, mixed F3 1.60 [facility] [address] [place] [id number] [address] [place] [address] Jun, Acute nasopharyngitis J00 [facility] [address] [place] [id number] [place] [address] Jun, Bipolar 1 disorder, mixed F3 1.60 [facility] [address] [place] [id number] [address] [place] [address] Jun, Fibromyalgia M79.7 [facility] [address] [place] [id number] [address] [place] [id number] Jun, Bipolar 1 disorder, mixed F3 1.60 [facility] [address] [place] [id number] [address] [place] [id number] Jun, Fibromyalgia M79.7 and Bipol ar 1 disorder, mixed F31.60 [facility] [address] [place] [id number] [address] [place] [id number] May, Bipolar 1 disorder, mixed F3 1.60 ; Generalized anxiety disorder F41.1 and Other affiliate marketing coordinator (current) drug therapy Z79.899 [facility] [address] [place] [id number] [address] [place] [id number] May, Bipolar 1 disorder, mixed F3 1.60 [facility] [address] [place] [id number] [address] [place] [phone] 14 May, 2017 Cough R05 and Body aches R52 [facility] [address] [place] [id number] [place] [phone] 10 May, 2017 Bladder spasm N32.89 and Acu te cystitis without hematuria N30.00 [place] [address] [phone] 07 May, 2017 Bipolar 1 disorder, mixed F3 1.60 [place] [address] [address] 30 Apr, 2017 [place] [address] [address] Apr, Major depressive disorder, r ecurrent episode, moderate F33.1 and Encounter for immunization Z23 [place] [address] [address] Apr, Bipolar 1 disorder, mixed F3 1.60 [place] [address] [address] Apr, Bipolar 1 disorder, mixed F3 1.60 [place] [address] [address] 16 Apr, 2017 Bipolar 1 disorder, mixed F3 1.60 [place] [id number] [place] [id number] 13 Apr, 2017 Yeast vaginitis B37.3 [place] [address] [place] [id number] [address] [place] [id number] 09 Apr, 2017 Bipolar 1 disorder, mixed F3 1.60 [facility] [address] [place] [id number] [address] [place] [id number] 07 Apr, 2017 Encounter for immunization Z 23 and Cellulitis L03.90 [facility] [address] [facility] [id number] [address] [place] [address] Apr, Bipolar 1 disorder, mixed F3 1.60 [facility] [address] [facility] [id number] [address] [place] [address] Mar, Bipolar 1 disorder, mixed F3 1.60 [facility] [address] [place] [id number] [address] [place], [place] [address] Mar, Bipolar 1 disorder, mixed F3 1.60 [facility] [address] [place] [id number] [address] [place] [id number] Mar, Imbalance R26.89 and Encount er for immunization Z23 [facility] [address] [place] [id number] [address] [place] [id number] Mar, Generalized anxiety disorder F41.1 [facility] [address] [place] [id number] [address] [place] [id number] Mar, Bipolar 1 disorder, mixed F3 1.60 [facility] [address] [place] [id number] [address] [place] [address] Mar, Generalized anxiety disorder F41.1 [facility] [address] [place] [id number] [address] [place] [id number] Mar, Bipolar 1 disorder, mixed F3 1.60 [facility] [address] [place] [id number] [address] [place] [id number] Mar, Bipolar 1 disorder, mixed F3 1.60 [facility] [address] [facility] [id number] [address] [place] [address] Feb, Bipolar 1 disorder, mixed F3 1.60 [facility] [address] [facility] [id number] [address] [place] [address] Feb, Bipolar 1 disorder, mixed F3 1.60 and Generalized anxiety disorder F41.1 [facility] [address] [place] [id number] [address] [place] [id number] Feb, Gastritis without bleeding, unspecified chronicity, unspecified gastritis type K29.70 ; Hammer toe of right foot M20.41 and Other viral warts B07.8 [place] [address] [facility] [id number] [address] [place] [id number] Feb, Bipolar 1 disorder, mixed F3 1.60 [place] [address] [facility] [id number] [address] [place] [address] Feb, Bipolar 1 disorder, mixed F3 1.60 [place] [address] [facility] [id number] [address] [place] [id number] 05 Feb, 2017 Bipolar 1 disorder, mixed F3 1.60 [place] [address] [facility] [id number] [address] [place] [address] Jan, Encounter for screening mamm ogram for breast cancer Z12.31 ; Other viral warts B07.8 and Allergic rhinitis J30.9 [place] [address] [facility] [id number] [address] [place] [address] Jan, Bipolar 1 disorder, mixed F3 1.60 [place] [address] [facility] [id number] [address] [place] [address] Jan, Bipolar 1 disorder, mixed F3 1.60 [place] [address] [facility] [id number] [address] [place] [address] Jan, [place] [address] [facility] [id number] [address] [place] [address] Jan, Bipolar 1 disorder, mixed F3 1.60 [place] [address] [facility] [id number] [address] [place] [address] Jan, Bipolar 1 disorder, mixed F3 1.60 [place] [address] [facility] [id number] [address] [place] [address] Jan, Allergic rhinitis J30.9 ; He maturia R31.9 and Colon cancer screening Z12.11 [place] [address] [facility] [id number] [address] [place] [address] Dec, Bipolar 1 disorder, mixed F3 1.60 [facility] [address] [id number] [address] [place] [address] Dec, Bipolar 1 disorder, mixed F3 1.60 ; Generalized anxiety disorder F41.1 and Other skilled nursing (current) drug therapy Z79.899 [facility] [address] [facility] [id number] [address] [place] [address] Dec, Bipolar 1 disorder, mixed F3 1.60 [facility] [address] [id number] [address] [place] [address] Dec, Bipolar 1 disorder, mixed F3 1.60 [facility] [address] [facility] [id number] [address] [place] [address] Dec, Bipolar 1 disorder, mixed F3 1.60 [facility] [address] [facility] [id number] [address] [place] [phone] Dec, Low back pain M54.5 and Recu rrent urinary tract infection N39.0 [facility] [address] [id number] [address] [place] [phone] Nov, Bipolar 1 disorder, mixed F3 1.60 [facility] [address] [facility] [id number] [address] [place] [address] Nov, Bipolar 1 disorder, mixed F3 1.60 [facility] [address] [facility] [id number] [address] [place] [phone] Nov, Bipolar 1 disorder, mixed F3 1.60 [facility] [address] [id number] [address] [place] [address] Nov, Bipolar 1 disorder, mixed F3 1.60 [facility] [address] [facility] [id number] [address] [place] [address] Nov, [facility] [address] [facility] [id number] [address] [place] [address] Nov, Anesthesia of skin R20.0 ; F requent UTI N39.0 ; Tobacco abuse Z72.0 and Colon cancer screening Z12.11 [facility] [address] [place] [id number] [address] [place] [address] Nov, Bipolar 1 disorder, mixed F3 1.60 [facility] [address] [place] [id number] [address] [place] [address] October, Bipolar 1 disorder, mixed F3 1.60 [facility] [address] [place] [id number] [address] [place] [id number] October, Bipolar 1 disorder, mixed F3 1.60 [place] [address] [place] [id number] [address] [place] [id number] October, Bipolar 1 disorder, mixed F3 1.60 [place] [address] [place] [id number] [address] [place] [address] October, Bipolar 1 disorder, mixed F3 1.60 [place] [address] [address] October, Bipolar 1 disorder, mixed F3 1.60 [place] [address] [place] [id number] [address] [place] [address] October, Cervicalgia M54.2 and Bipola r 1 disorder, mixed F31.60 [place] [address] [place] [id number] [address] [place] [address] October, Hypertension I10 ; Hyperlipi demia, unspecified hyperlipidemia type E78.5 and Family history of thyroid disease Z83.49 [place] [address] [place] [id number] [address] [place] [id number] October, [place] [address] [place] [id number] [address] [place] [address] October, Hypertension I10 ; Hyperlipi demia, unspecified hyperlipidemia type E78.5 and Family history of thyroid problem Z83.49 [place] [address] [place] [id number] [address] [place] [id number] October, Bipolar 1 disorder, mixed F3 1.60 [facility] [address] [facility] [id number] [address] [place] [id number] Sep, Bipolar 1 disorder, mixed F3 1.60 [facility] [address] [facility] [id number] [address] [place] [address] Sep, Bipolar 1 disorder, mixed F3 1.60 [facility] [address] [place] [id number] [address] [place] [address] Sep, Bipolar 1 disorder, mixed F3 1.60 [place] [address] [place] [id number] [address] [place] [address] Sep, History of colon polyps Z86. 010 and Hematochezia K92.1 [place] [address] [place] [id number] [address] [place] [address] Sep, Major depressive disorder, r ecurrent episode, moderate F33.1 [place] [address] [place] [id number] [address] [place] [address] Sep, Bipolar 1 disorder, mixed F3 1.60 [place] [address] [place] [id number] [address] [place] [address] Aug, Hot flashes due to menopause N95.1 [facility] [address] [place] [id number] [address] [place] [address] Aug, Bipolar 1 disorder, mixed F3 1.60 [place] [address] [place] [id number] [address] [place] [phone] Aug, [facility] [address] [facility] [id number] [address] [place] [address] Aug, Bipolar 1 disorder, mixed F3 1.60 [place] [address] [place] [id number] [address] [place] [address] Aug, Bipolar 1 disorder, mixed F3 1.60 [facility] [address] [place] [id number] [address] [place] [address] Aug, Hot flashes due to menopause N95.1 ; Cervicalgia M54.2 and Ataxia R27.0 [place] [address] [address] Jul, Bipolar 1 disorder, mixed F3 1.60 [place] [address] [place] [address] Jul, Bipolar 1 disorder, mixed F3 1.60 [place] [address] Jul, Bipolar 1 disorder, mixed F3 1.60 [place] [address] [address] Jul, Bipolar 1 disorder, mixed F3 1.60 [place] [address] Jul, Bipolar 1 disorder, mixed F3 1.60 [place] [address] [address] Jul, Cervicalgia M54.2 ; Tremor R 25.1 ; Hearing abnormally acute, unspecified laterality H93.239 ; Alopecia L65.9 ; Encounter for immunization Z23 and Family history of thyroid disease Z83.49 [place] [address] [address] Jul, Bipolar 1 disorder, mixed F3 1.60 [place] [address] [address] Jun, [place] [address] [address] Jun, Hearing disorder, unspecifie d laterality H93.299 [place] [address] [address] Jun, Bipolar 1 disorder, mixed F3 1.60 [place] [address] [address] Jun, Bipolar 1 disorder, mixed F3 1.60 [facility] [address] [id number] [address] [place] [id number] Jun, Allergic rhinitis J30.9 [facility] [address] [id number] [address] [place] [id number] Jun, Bipolar 1 disorder, mixed F3 1.60 [facility] [address] [id number] [address] [place] [id number] Jun, Bipolar 1 disorder, mixed F3 1.60 [facility] [address] [address] [id number] [address] [place] [address] Jun, Allergic rhinitis J30.9 [facility] [address] [id number] [address] [place] [id number] Jun, Allergic rhinitis J30.9 [facility] [address] [facility] [id number] [address] [place] [address] Jun, Bipolar 1 disorder, mixed F3 1.60 [facility] [address] [id number] [address] [place] [id number] May, Bipolar 1 disorder, mixed F3 1.60 [facility] [address] [id number] [address] [place] [id number] May, Bipolar 1 disorder, mixed F3 1.60 [facility] [address] [facility] [id number] [address] [place] [id number] May, [facility] [address] [facility] [id number] [address] [place] [id number] May, Bipolar 1 disorder, mixed F3 1.60 [facility] [address] [id number] [address] [place] [id number] May, Bipolar 1 disorder, mixed F3 1.60 [facility] [address] [facility] [id number] [address] [place] [address] May, [facility] [address] [facility] [id number] [address] [place] [phone] May, [facility] [address] [facility] [id number] [address] [place] [address] May, [facility] [address] [place] [id number] [address] [place] [address] May, Abdominal pain, unspecified location R10.9 [facility] [address] [facility] [id number] [address] [place] [address] May, [facility] [address] [place] [id number] [address] [place] [address] Apr, Hematuria R31.9 ; Ataxia R27 .0 and Hearing loss, unspecified laterality H91.90 [facility] [address] [place] [id number] [address] [place] [id number] Apr, Bipolar 1 disorder, mixed F3 1.60 [facility] [address] [place] [id number] [address] [place] [address] Apr, Acute effusion of both middl e ears H65.193 [facility] [address] [facility] [id number] [address] [place] [address] Apr, Hematuria R31.9 and Pyelonep hritis N12 [facility] [address] [place] [id number] [address] [place] [address] Apr, [facility] [address] [place] [id number] [address] [place] [address] Mar, Bipolar 1 disorder, mixed F3 1.60 [facility] [address] [place] [id number] [address] [place] [address] Mar, [facility] [address] [facility] [id number] [address] [place] [address] Mar, Bipolar 1 disorder, mixed F3 1.60 [facility] [address] [place] [id number] [address] [place] [address] Mar, Bipolar 1 disorder, mixed F3 1.60 [facility] [address] [place] [id number] [address] [place] [id number] Mar, Encounter for immunization Z 23 and Gastritis without bleeding, unspecified chronicity, unspecified gastritis type K29.70 [place] [address] [place] [id number] 05 Mar, 2016 Bipolar 1 disorder, mixed F3 1.60 and Grief F43.20 [place] [address] Mar, Gastritis without bleeding, unspecified chronicity, unspecified gastritis type K29.70 [place] [address] Mar, Bipolar 1 disorder, mixed F3 1.60 [place] [address] Mar, Gastritis without bleeding, unspecified chronicity, unspecified gastritis type K29.70 [place] [address] [place] [address] Mar, [place] [address] [id number] 27 Feb, 2016 Bipolar 1 disorder, mixed F3 1.60 [place] [address] [place] [address] Feb, Bipolar 1 disorder, mixed F3 1.60 and Grief F43.20 [place] [address] [place] [address] Feb, Gastritis without bleeding, unspecified chronicity, unspecified gastritis type K29.70 [place] [address] [id number] 14 Feb, 2016 Bipolar 1 disorder, mixed F3 1.60 [facility] [address] [place] [id number] 09 Feb, 2016 Gastroesophageal reflux dise ase, esophagitis presence not specified K21.9 [place] [address] [place] [address] Jan, Bipolar 1 disorder, mixed F3 1.60 [facility] [address] [facility] [id number] [address] [place] [address] Jan, Bipolar 1 disorder, mixed F3 1.60 and Unsteady gait R26.81 [facility] [address] [facility] [id number] [address] [place] [address] Jan, Bipolar 1 disorder, mixed F3 1.60 [facility] [address] [facility] [id number] [address] [place] [address] Jan, Bipolar 1 disorder, mixed F3 1.60 and Other affiliate marketing coordinator (current) drug therapy Z79.899 [place] [address] [facility] [id number] [address] [place] [address] Jan, Bipolar 1 disorder, mixed F3 1.60 [place] [address] [place] [id number] [address] [place] [id number] Jan, Bipolar 1 disorder, mixed F3 1.60 [place] [address] [facility] [id number] [address] [place] [address] Jan, Bipolar 1 disorder, mixed F3 1.60 ; Grief F43.20 and Other skilled nursing (current) drug therapy Z79.899 [place] [address] [facility] [id number] [address] [place] [id number] Jan, Bipolar 1 disorder, mixed F3 1.60 [place] [address] [facility] [id number] [address] [place] [address] Dec, [place] [address] [facility] [id number] [address] [place] [address] Dec, Bipolar 1 disorder, mixed F3 1.60 ; Vitamin D deficiency, unspecified E55.9 ; H/O allergic rhinitis Z87.09 ; Other chronic pain G89.29 and Dorsalgia, unspecified M54.9 [facility] [address] [facility] [id number] [address] [place] [address] Dec, [place] [address] [facility] [id number] [address] [place] [address] Dec, Bipolar 1 disorder, mixed F3 1.60 [facility] [address] [facility] [id number] [address] [place] [address] Dec, Major depressive disorder, r ecurrent episode, moderate F33.1 [place] [address] [facility] [id number] [address] [place] [address] Dec, Major depressive disorder, r ecurrent episode, moderate F33.1 [place] [address] [facility] [id number] [address] [place] [address] Nov, [place] [address] [facility] [id number] [address] [place] [address] Nov, Bipolar 1 disorder, mixed F3 1.60 [place] [address] [facility] [id number] [address] [place] [address] Nov, Major depressive disorder, r ecurrent episode, moderate F33.1 [place] [address] [facility] [id number] [address] [place] [address] Nov, Cervicalgia M54.2 ; Arthralg ia of hip, unspecified laterality M25.559 ; Allergic rhinitis J30.9 and Hormone replacement therapy Z79.890 [facility] IN [facility] [address] [facility] [id number] [address] [place] [address] Nov, Other seasonal allergic rhin itis J30.2 [facility] [address] [facility] [id number] [address] [place] [address] October, Major depressive disorder, r ecurrent episode, moderate F33.1 [place] [address] [facility] [id number] [address] [place] [address] October, Major depressive disorder, r ecurrent episode, moderate F33.1 and Arthralgia of hip, unspecified laterality M25.559 [place] [address] [facility] [id number] [address] [place] [address] October, Grief F43.20 ; Hypertension I10 ; Hyperlipidemia, unspecified hyperlipidemia type E78.5 ; Other chronic pain G89.29 and Allergic rhinitis, unspecified allergic rhinitis type J30.9 [facility] [address] [place] [id number] [address] [place] [address] October, Major depressive disorder, r ecurrent episode, moderate F33.1 [place] [id number] [place] [address] Sep, Major depressive disorder, r ecurrent episode, moderate F33.1 [place] [id number] [place] [address] Sep, [place] [address] [address] Sep, Major depressive disorder, r ecurrent episode, moderate F33.1 [place] [address] [address] Sep, Grief F43.20 [place] [id number] [place] [address] Aug, Major depressive disorder, r ecurrent episode, moderate F33.1 [place] [address] [id number] Aug, Bipolar 1 disorder, mixed F3 1.60 [place] [address] [place] [id number] [address] [place] [address] Aug, Allergic rhinitis J30.9 ; Ce rvicalgia M54.2 and Low back pain M54.5 [place] [address] [place] [id number] [address] [place] [address] Aug, Major depressive disorder, r ecurrent episode, moderate F33.1 [facility] [address] [place] [id number] [address] [place] [address] Aug, Sinusitis J32.9 and Tobacco 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 [facility] [address] [address] Aug, [facility] [address] [id number] [address] [place] [address] Aug, Depressive disorder, not els ewhere classified F32.9 ; Hormone replacement therapy Z79.[address] scan, head R93.0 [facility] [address] [id number] [address] [place] [address] Aug, Major depressive disorder, r ecurrent episode, moderate F33.1 [facility] [address] [id number] [address] [place] [address] Jul, Major depressive disorder, r ecurrent episode, moderate F33.1 [facility] [address] [id number] [address] [place] [address] Jul, Abdominal pain R10.9 and Hyp ertension I10 [facility] [address] [id number] [address] [place] [address] Jul, [facility] [address] [id number] [address] [place] [address] Jul, Major depressive disorder, r ecurrent episode, moderate F33.1 [facility] [address] [id number] [address] [place] [id number] Jul, [facility] [address] [id number] [address] [place] [id number] Jul, [facility] [address] [id number] [address] [place] [address] Jun, [facility] [address] [id number] [address] [place] [id number] Jun, Depressive disorder, not els ewhere classified F32.9 [facility] [address] [facility] [id number] [address] [place] [id number] Jun, [facility] [address] [facility] [id number] [address] [place] [address] Jun, [place] [address] [id number] [address] [place] [address] Jun, Arthralgia of hip, unspecifi ed laterality M25.559 ; Bruising, spontaneous R23.3 and Night sweats R61 [facility] [address] [id number] [address] [place] [address] Jun, [facility] [address] [id number] [address] [place] [address] Jun, [facility] [address] [id number] [address] [place] [address] May, [facility] [address] [id number] [address] [place] [address] May, Myalgia M79.1 and Screening, lipid Z13.220 [facility] [address] [id number] [address] [place] [address] Apr, Status post cervical spinal fusion Z98.1 ; Fibromyalgia M79.7 and Unsteady gait R26.81 [facility] [address] [id number] [address] [place] [id number] Nov, [facility] [address] [id number] [address] [place] [address] Nov, [facility] [address] [id number] [address] [place] [address] October, [facility] [address] [id number] [address] [place] [address] October, [facility] [address] [id number] [address] [place] [id number] October, [facility] [address] [id number] [address] [place] [address] October, [facility] [address] [id number] [address] [place] [address] October, [facility] [address] [id number] [address] [place] [address] October, Dysuria 788.1 ; Nausea 787.0 2 and Urinary tract infection 599.0 [facility] [place] [address] [id number] [address] [place] [id number] 14 Sep, 2014 [facility] [address] [id number] [address] [place] [id number] Sep, [facility] [address] [id number] [address] [place] [id number] Aug, [facility] [address] [id number] [address] [place] [id number] Aug, [facility] [address] [id number] [address] [place] [id number] 24 Aug, 2014 [facility] [address] [id number] [address] [place] [id number] 24 Aug, 2014 [facility] [address] [id number] [address] [place] [id number] Aug, [facility] [address] [id number] [address] [place] [id number] Aug, [facility] [address] [id number] [address] [place] [id number] Aug, [facility] [address] [id number] [address] [place] [id number] 19 Aug, 2014 [facility] [address] [id number] [address] [place] [id number] 19 Aug, 2014 [facility] [address] [id number] [address] [place] [id number] 18 Aug, 2014 [facility] [address] [id number] [address] [place] [id number] 18 Aug, 2014 [facility] [address] [id number] [address] [place] [id number] 13 Aug, 2014 [facility] [address] [id number] [address] [place] [address] [place] [address] 13 Aug, 2014 [facility] [address] [id number] [address] [place] [address], [place] [address] Aug, 2014 [facility] [address] [id number] [address] [place] [address], [place] [address] Aug, [facility] [address] [id number] [address] [place] [address], [place] [address] Aug, 2014 [facility] [address] [id number] [address] [place] [address], [place] [address] 06 Aug, 2014 [facility] [address] [id number] [address] [place] [address], [place] [address] Aug, [facility] [address] [id number] [address] [place] [address], [place] [address] Aug, 2014 [facility] [address] [id number] [address] [place] [address], [place] [address] Aug, [facility] [address] [id number] [address] [place] [address], [place] [address] Aug, [facility] [address] [id number] [address] [place] [address], [place] [address] Aug, [facility] [address] [id number] [address] [place] [address], [place] [address] Jul, [facility] [address] [id number] [address] [place] [address], [place] [address] Jul, 2014 [facility] [address] [id number] [address] [place] [address], [place] [address] Jul, 2014 [facility] [address] [id number] [address] [place] [address], [place] [address] Jul, 2014 [facility] [address] [id number] [address] [place] [address], [place] [address] Jul, 2014 [facility] [address] [id number] [address] [place] [address], [place] [address] Jul, 2014 [facility] [address] [id number] [address] [place] [address], [place] [address] Jul, 2014 [facility] [address] [id number] [address] [place] [address], [place] [address] Jul, 2014 [facility] [address] [id number] [address] [place] [address], [place] [address] Jul, 2014 [facility] [address] [id number] [address] [place] [address], [place] [address] Jul, 2014 [facility] [address] [id number] [address] [place] [address], [place] [address] Jul, [facility] [address] [id number] [address] [place] [address], [place] [address] Jul, 2014 [facility] [address] [id number] [address] [place] [address], [place] [address] Jul, [facility] [address] [id number] [address] [place] [address], [place] [address] Jul, [facility] [address] [id number] [address] [place] [address], [place] [address] Jun, [facility] [address] [id number] [address] [place] [address], [place] [address] Jun, [facility] [address] [id number] [address] [place] [address], [place] [address] Jun, [facility] [address] [id number] [address] [place] [address], [place] [address] Jun, [facility] [address] [id number] [address] [place] [address], [place] [address] Jun, [facility] [address] [id number] [address] [place] [address], [place] [address] Jun, [facility] [address] [id number] [address] [place] [address], [place] [address] May, [facility] [address] [id number] [address] [place] [address], [place] [address] May, [facility] [address] [id number] [address] [place] [address], [place] [address] May, [facility] [address] [id number] [address] [place] [address], [place] [address] May, [facility] [address] [id number] [address] [place] [address], [place] [address] May, [facility] [address] [id number] [address] [place] [address], [place] [address] May, [facility] [address] [id number] [address] [place] [address], [place] [address] Apr, [facility] [address] [id number] [address] [place] [address], [place] [address] Apr, [facility] [address] [id number] [address] [place] [address], [place] [address] Apr, [facility] [address] [id number] [address] [place] [address], [place] [address] Apr, [facility] [address] [id number] [address] [place] [address], [place] [address] Apr, [facility] [place] [address] [id number] [address] [place] [address], [place] [address] Apr, [facility] [address] [id number] [address] [place] [address], [place] [address] Mar, [facility] [address] [id number] [address] [place] [address], [place] [address] Mar, [facility] [address] [id number] [address] [place] [address], [place] [address] Mar, [facility] [address] [id number] [address] [place] [address], [place] [address] Mar, [facility] [address] [id number] [address] [place] [address], [place] [address] Mar, [facility] [address] [id number] [address] [place] [address], [place] [address] Mar, [facility] [address] [id number] [address] [place] [address], [place] [address] Mar, [facility] [address] [id number] [address] [place] [address], [place] [address] Mar, [facility] [address] [id number] [address] [place] [address], [place] [id number] Mar, [facility] [address] [id number] [address] [place] [address], [place] [address] Mar, [facility] [address] [id number] [address] [place] [address], [place] [address] Mar, [facility] [address] [id number] [address] [place] [address], [place] [address] Mar, [facility] [address] [id number] [address] [place] [address], [place] [address] 30 Feb, 2013 [facility] [address] [id number] [address] [place] [address], [place] [id number] 29 Feb, 2013 [facility] [address] [id number] [address] [place] [address], [place] [id number] 29 Feb, 2013 [facility] [address] [id number] [address] [place] [address], [place] [address] 23 Feb, 2013 [facility] [address] [id number] [address] [place] [id number] 23 Feb, 2013 [facility] [address] [id number] [address] [place] [address], [place] [address] 08 Feb, 2013 [facility] [address] [id number] [address] [place] [address], [place] [address] 08 Feb, 2013 [facility] [address] [id number] [address] [place] [address], [place] [address] Jan, [facility] [address] [id number] [address] [place] [address], [place] [address] Jan, [facility] [address] [id number] [address] [place] [address], [place] [address] Jan, [facility] [address] [id number] [address] [place] [address], [place] [address] Dec, [facility] [address] [id number] [address] [place] [address], [place] [address] Dec, [facility] [address] [id number] [address] [place] [address], [place] [address] Dec, [facility] [address] [id number] [address] [place] [address], [place] [address] Dec, [facility] [address] [id number] [address] [place] [address], [place] [address] Sep, [facility] [address] [id number] [address] [place] [address], [place] [address] Sep, [facility] [address] [id number] [address] [place] [address], [place] [address] Sep, [facility] [address] [id number] [address] [place] [address], [place] [address] Sep, [facility] [address] [id number] [address] [place] [address], [place] [id number] Sep, [facility] [address] [id number] [address] [place] [address], [place] [address] Sep, [facility] [address] [id number] [address] [place] [address], [place] [address] Sep, [facility] [address] [id number] [address] [place] [address], [place] [address] Sep, [facility] [address] [id number] [address] [place] [address], [place] [address] Aug, [facility] [address] [id number] [address] [place] [address], [place] [address] Aug, [facility] [address] [id number] [address] [place] [address], [place] [address] May, [facility] [address] [id number] [address] [place] [address], [place] [address] May, [facility] [address] [id number] [address] [place] [address], [place] [address] Apr, [facility] [address] [id number] [address] [place] [address], [place] [address] Apr, [facility] [address] [id number] [address] [place] [address], [place] [address] Apr, [facility] [address] [id number] [address] [place] [address], [place] [address] Apr, [facility] [address] [id number] [address] [place] [address], [place] [address] Apr, [facility] [address] [id number] [address] [place] [address], [place] [address] Apr, [facility] [address] [id number] [address] [place] [address], [place] [address] May, [facility] [address] [id number] [address] [place] [address], [place] [address] 18 May, 2012 [facility] [address] [id number] [address] [place] [address], [place] [address] 15 May, 2012 [facility] [address] [id number] [address] [place] [address], [place] [address] 15 May, 2012 [facility] [address] [id number] [address] [place] [address], [place] [address] 13 May, 2012 [facility] [address] [id number] [address] [place] [address], [place] [address] 13 May, 2012 [facility] [address] [id number] [address] [place] [address], [place] [address] 13 Apr, 2012 [facility] [address] [id number] [address] [place] [address], [place] [address] Apr, [facility] [address] [id number] [address] [place] [address], [place] [address] 08 Apr, 2012 [facility] [address] [id number] [address] [place] [address], [place] [address] Apr, [facility] [address] [id number] [address] [place] [address], [place] [address] Apr, [facility] [address] [id number] [address] [place] [address], [place] [address] Apr, [facility] [address] [id number] [address] [place] [address], [place] [address] Apr, [facility] [address] [id number] [address] [place] [address], [place] [address] Apr, [facility] [address] [id number] [address] [place] [address], [place] [address] Apr, [facility] [address] [id number] [address] [place] [address] Apr, [facility] [address] [id number] [address] [place] [address], [place] [address] Mar, [facility] [address] [id number] [address] [place] [address] Mar, [facility] [address] [id number] [address] [place] [address] Mar, [facility] [address] [id number] [address] [place] [address] Mar, [facility] [address] [id number] [address] [place] [address], [place] [address] Mar, [facility] [address] [id number] [address] [place] [address] Mar, [facility] [address] [id number] [address] [place] [address] Mar, [facility] [address] [id number] [address] [place] [address], [place] [address] Mar, [facility] [address] [id number] [address] [place] [address], [place] [address] Mar, [facility] [address] [id number] [address] [place] [address], [place] [address] 25 Feb, 2012 [facility] [address] [id number] [address] [place] [address], [place] [address] 16 Feb, 2012 [facility] [address] [id number] [address] [place] [address], [place] [address] 11 Feb, 2012 [facility] [address] [id number] [address] [place] [address], [place] [address] Jan, [facility] [address] [id number] [address] [place] [address], [place] [address] Jan, [facility] [address] [id number] [address] [place] [address], [place] [address] Jan, [facility] [address] [id number] [address] [place] [address], [place] [address] Jan, [facility] [address] [id number] [address] [place] [address], [place] [address] Jan, [facility] [address] [id number] [address] [place] [address], [place] [address] Jan, [facility] [address] [id number] [address] [place] [address], [place] [address] 16 Jan, 2012 [facility] [address] [id number] [address] [place] [address], [place] [address] Jan, [facility] [address] [id number] [address] [place] [address], [place] [address] Jan, [facility] [address] [id number] [address] [place] [address], [place] [address] Jan, [facility] [address] [id number] [address] [place] [address], [place] [address] Dec, [facility] [place] [address] [id number] [address] [place] [address], [place] [address] Dec, [facility] [address] [id number] [address] [place] [address], [place] [address] Dec, [facility] [address] [id number] [address] [place] [address], [place] [address] Dec, [facility] [address] [id number] [address] [place] [address], [place] [address] Nov, [facility] [address] [id number] [address] [place] [address], [place] [address] Nov, [facility] [address] [id number] [address] [place] [address], [place] [address] Nov, [facility] [address] [id number] [address] [place] [address], [place] [address] October, [facility] [address] [id number] [address] [place] [address], [place] [address] October, [facility] [address] [id number] [address] [place] [address], [place] [address] October, [facility] [address] [id number] [address] [place] [address], [place] [address] October, [facility] [address] [id number] [address] [place] [address], [place] [address] October, [facility] [address] [id number] [address] [place] [address], [place] [address] October, [facility] [address] [id number] [address] [place] [address], [place] [address] Aug, [facility] [address] [id number] [address] [place] [address], [place] [address] Mar, [facility] [address] [id number] [address] [place] [address], [place] [address] 16 Nov, 2010 [facility] [address] [id number] [address] [address] May, [facility] [address] [facility] [id number] [address] [place] [address] May, [facility] [address] [facility] [id number] [address] [place] [address] Apr, [facility] [address] [facility] [id number] [address] [place] [address] Mar, [facility] [address] [facility] [id number] [address] [place] [address] Mar, IMMUNIZATIONS No Known Immunizations SOCIAL HISTORY Never Assessed REASON FOR VISIT BH f/u PLAN OF CARE Activity Details Follow Up Next available Reason: F/U VITAL SIGNS MEDICATIONS Unknown Medications RESULTS No Results PROCEDURES Procedure Date Ordered Result Body Site [facility] VISIT MENTAL HEALTH ESTAB PT November 28, 2017 Psychotherapy, patient &/family, 45 minutes, established pat ient November 28, 2017 INSTRUCTIONS MEDICATIONS ADMINISTERED No Known Medications MEDICAL (GENERAL) HISTORY Type Description Date Medical History Severe spinal stenosis [facility] cervical spine CT and MRI done [...]
--- OUTSIDE RECORDS SUMMARY | 2019-06-19 05:32 | XMS REPORT ---
Author Author Sydnie MORTON Organization [facility] Address [address] [place] [address] Care Team Providers Care Fundraising Sale Representative Name Role Phone JOHN MORTON Unavailable PROBLEMS Type Condition ICD9-CM Code GVC69-XT Code Onset Dates Condition S tatus SNOMED Code Problem Hormone replacement therapy Z79.890 Ac tive 482337060 Problem Abnormal CT scan, head R93.0 Active 461303374 Problem Sensorineural hearing loss (SNHL) of both ears H90 .3 Active 920386271 Problem History of colon polyps Z86.010 Active 948806867 Problem Bruising, spontaneous R23.3 Active 321648973 Problem Generalized anxiety disorder F41.1 A ctive 49338004 Problem Arthralgia of hip, unspecified laterality M25.559 Active 07277957 Problem Hematuria, unspecified type R31.9 Ac tive 70999714 Problem Imbalance R26.89 Active 652729039 Problem Hammer toe of right foot M20.41 Activ e 090407322 Problem Plantar wart of right foot B07.0 Act mitchell [id number] Problem Sciatica of left side M54.32 Active 31400572 Problem Hyperlipidemia, unspecified hyperlipidemia type E7 8.5 Active 28984141 Problem Hypertension I10 Active 0057456 3 Problem Night sweats R61 Active 9640936 0 Problem Fibromyalgia M79.7 Active 2948137 7 Problem Major depressive disorder, recurrent episode, moderate F33.1 Active 055750261 Problem Acute left-sided low back pain with left-sided sciatica M54.42 Active 437484115 Problem Bladder spasm N32.89 Active 188490 006 Problem Gastritis without bleeding, unspecified chronicity, unspecified gastritis type K29.70 Active 952567176 Problem Bipolar 1 disorder, mixed F31.60 Acti ve 71362574 Problem Grief F43.20 Active 84779188 Problem Other chronic pain G89.29 Active 8 6581146 Problem Allergic rhinitis J30.9 Active 61 038752 Problem Hot flashes due to menopause N95.1 A ctive 445897700 Problem Ataxia R27.0 Active 65313796 Problem Hearing loss, unspecified laterality H91.90 Active 84108767 ALLERGIES No Information ENCOUNTERS Encounter Location Date Diagnosis [facility] [address] [facility] [id number] [address] [place] [phone] Mar, [facility] [address] [facility] [id number] [address] [place] [phone] Feb, [facility] [address] [facility] [id number] [address] [place] [phone] Feb, [facility] [address] [facility] [id number] [address] [place] [phone] Jan, [facility] [address] [place] [id number] [address] [place] [phone] Jan, [facility] [address] [facility] [id number] [address] [place] [phone] Jan, Bipolar 1 disorder, mixed F3 1.60 [facility] [address] [facility] [id number] [address] [place] [phone] Jan, Bipolar 1 disorder, mixed F3 1.60 [facility] [address] [facility] [id number] [address] [place] [phone] Jan, Bipolar 1 disorder, mixed F3 1.60 [facility] [address] [facility] [id number] [address] [place] [phone] Jan, Bipolar 1 disorder, mixed F3 1.60 [facility] [address] [facility] [id number] [address] [place] [id number] Dec, Bipolar 1 disorder, mixed F3 1.60 ; Generalized anxiety disorder F41.1 and 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 [facility] [address] [facility] [id number] [address] [place] [phone] Dec, Other 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 (current) dr bin therapy Z79.899 [facility] [address] [facility] [id number] [address] [place] [phone] Dec, Bipolar 1 disorder, mixed F3 1.60 [facility] [address] [facility] [id number] [address] [place] [phone] Dec, Bipolar 1 disorder, mixed F3 1.60 [facility] [address] [facility] [id number] [address] [place] [phone] Nov, Bipolar 1 disorder, mixed F3 1.60 [facility] [address] [id number] [address] [place] [id number] Nov, Bipolar 1 disorder, mixed F3 1.60 [facility] [address] [facility] [id number] [address] [place] [phone] Nov, Bipolar 1 disorder, mixed F3 1.60 [facility] [address] [facility] [id number] [address] [place] [phone] Nov, Allergic rhinitis J30.9 [facility] [address] [facility] [id number] [address] [place] [phone] Nov, Allergic rhinitis J30.9 [facility] [address] [facility] [id number] [address] [place] [phone] Nov, [facility] [address] [facility] [id number] [address] [place] [phone] Nov, Bipolar 1 disorder, mixed F3 1.60 [facility] [address] [facility] [id number] [address] [place] [phone] Nov, Fibromyalgia M79.7 and Aller gic rhinitis J30.9 [facility] [address] [facility] [id number] [address] [place] [phone] October, Bipolar 1 disorder, mixed F3 1.60 [facility] [address] [facility] [id number] [address] [place] [phone] October, Acute nasopharyngitis J00 [facility] [address] [facility] [id number] [address] [place] [phone] October, Bitten or stung by nonvenomo us insect and other nonvenomous arthropods, initial encounter W57.XXXA and Insect bite (nonvenomous) of abdominal wall, initial encounter S30.861A [facility] [address] [id number] [address] [place] [id number] October, Insect bite (nonvenomous) of abdominal wall, initial encounter S30.861A ; Bitten or stung by nonvenomous insect and other nonvenomous arthropods, initial encounter W57.XXXA ; Allergic rhinitis J30.9 and Low back pain M54.5 [facility] [address] [id number] [address] [place] [id number] October, Bipolar 1 disorder, mixed F3 1.60 [facility] [address] [facility] [id number] [address] [place] [phone] October, [facility] [address] [facility] [id number] [address] [place] [phone] October, [facility] [address] [id number] [address] [place] [phone] October, Bipolar 1 disorder, mixed F3 1.60 [facility] [address] [id number] [address] [place] [phone] Sep, Bipolar 1 disorder, mixed F3 1.60 [facility] [address] [id number] [address] [place] [phone] Sep, Other chronic pain G89.29 [facility] [address] [id number] [address] [place] [phone] Sep, [facility] [address] [facility] [id number] [address] [place] [id number] Sep, Bipolar 1 disorder, mixed F3 1.60 [facility] [address] [facility] [id number] [address] [place] [phone] Sep, Allergic rhinitis J30.9 and Sciatica of left side M54.32 [facility] [address] [facility] [id number] [address] [place] [id number] Sep, Bipolar 1 disorder, mixed F3 1.60 [facility] [address] [facility] [id number] [address] [place] [phone] Sep, Bipolar 1 disorder, mixed F3 1.60 and Generalized anxiety disorder F41.1 [facility] [address] [facility] [id number] [address] [place] [phone] Aug, [facility] [address] [facility] [id number] [address] [place] [phone] Aug, Bipolar 1 disorder, mixed F3 1.60 [facility] [address] [facility] [id number] [address] [place] [phone] Aug, Bipolar 1 disorder, mixed F3 1.60 [facility] [address] [place] [id number] [address] [place] [phone] Aug, [facility] [address] [place] [id number] [address] [place] [phone] Aug, Generalized anxiety disorder F41.1 [facility] [address] [facility] [id number] [address] [place] [phone] Aug, Bipolar 1 disorder, mixed F3 1.60 [facility] [address] [facility] [id number] [address] [place] [id number] Aug, Plantar wart of right foot B 07.0 [facility] [address] [facility] [id number] [address] [place] [id number] Aug, Bipolar 1 disorder, mixed F3 1.60 [facility] [address] [facility] [id number] [address] [place] [phone] Jul, Bipolar 1 disorder, mixed F3 1.60 [facility] [address] [facility] [id number] [address] [place] [id number] Jul, [facility] [address] [place] [id number] [address] [place] [id number] 14 Jul, 2017 Bipolar 1 disorder, mixed F3 1.60 [facility] [address] [facility] [id number] [address] [place] [phone] 09 Jul, 2017 Generalized anxiety disorder F41.1 [facility] [address] [place] [id number] [address] [place] [id number] Jul, Bipolar 1 disorder, mixed F3 1.60 [facility] [address] [place] [id number] [address] [place] [id number] Jul, Acute left-sided low back pa in with left-sided sciatica M54.42 [facility] [address] [place] [id number] [address] [place] [phone] Jul, Coccydynia M53.3 [facility] [address] [place] [id number] [address] [place] [id number] Jun, Bipolar 1 disorder, mixed F3 1.60 [facility] [address] [place] [id number] [address] [place] [phone] Jun, Acute nasopharyngitis J00 [facility] [address] [place] [id number] [place] [phone] Jun, Bipolar 1 disorder, mixed F3 1.60 [facility] [address] [place] [id number] [address] [place] [phone] Jun, Fibromyalgia M79.7 [facility] [address] [place] [id number] [address] [place] [phone] Jun, Bipolar 1 disorder, mixed F3 1.60 [facility] [address] [place] [id number] [address] [place] [phone] Jun, Fibromyalgia M79.7 and Bipol ar 1 disorder, mixed F31.60 [facility] [address] [place] [id number] [address] [place] [phone] May, Bipolar 1 disorder, mixed F3 1.60 ; Generalized anxiety disorder F41.1 and 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 [facility] [address] [place] [id number] [address] [place] [phone] May, Bipolar 1 disorder, mixed F3 1.60 [facility] [address] [place] [id number] [address] [place] [phone] 14 May, 2017 Cough R05 and Body aches R52 [facility] [address] [place] [id number] [place] [phone] 10 May, 2017 Bladder spasm N32.89 [address] te cystitis without hematuria N30.00 [place] [address] [address] 07 May, 2017 Bipolar 1 disorder, mixed F3 1.60 [place] [address] [phone] 30 Apr, 2017 [place] [address] [address] Apr, Major depressive disorder, r ecurrent episode, moderate F33.1 and Encounter for immunization Z23 [place] [address] [address] Apr, Bipolar 1 disorder, mixed F3 1.60 [place] [address] [phone] Apr, Bipolar 1 disorder, mixed F3 1.60 [place] [address] [id number] 16 Apr, 2017 Bipolar 1 disorder, mixed F3 1.60 [place] [id number] [place] [phone] 13 Apr, 2017 Yeast vaginitis B37.3 [place] [address] [place] [id number] [address] [place] [id number] 09 Apr, 2017 Bipolar 1 disorder, mixed F3 1.60 [facility] [address] [place] [id number] [address] [place] [phone] 07 Apr, 2017 [address]itis [address]03[address] for immunization Z23 [facility] [address] [place] [id number] [address] [place], [place] [address] Apr, Bipolar 1 disorder, mixed F3 1.60 [facility] [address] [place] [id number] [address] [place], [place] [address] Mar, Bipolar 1 disorder, mixed F3 1.60 [facility] [address] [place] [id number] [address] [place] [id number] Mar, Bipolar 1 disorder, mixed F3 1.60 [facility] [address] [place] [id number] [address] [place] [id number] Mar, Imbalance R26.89 and Encount er for immunization Z23 [facility] [address] [place] [id number] [address] [place], [place] [address] Mar, Generalized anxiety disorder F41.1 [place] [address] [place] [id number] [address] [place] [address] Mar, Bipolar 1 disorder, mixed F3 1.60 [place] [address] [place] [id number] [address] [place] [id number] Mar, Generalized anxiety disorder F41.1 [place] [address] [place] [id number] [address] [place], [place] [address] Mar, Bipolar 1 disorder, mixed F3 1.60 [facility] [address] [place] [id number] [address] [place], [place] [address] Mar, Bipolar 1 disorder, mixed F3 1.60 [facility] [address] [place] [id number] [address] [place] [phone] Feb, Bipolar 1 disorder, mixed F3 1.60 [facility] [address] [place] [id number] [address] [place], [place] [address] Feb, Bipolar 1 disorder, mixed F3 1.60 and Generalized anxiety disorder F41.1 [facility] [address] [place] [id number] [address] [place] [address] Feb, Gastritis without bleeding, unspecified chronicity, unspecified gastritis type K29.70 ; Hammer toe of right foot M20.41 and Other viral warts B07.8 [place] [address] [facility] [id number] [address] [place] [phone] Feb, Bipolar 1 disorder, mixed F3 1.60 [place] [address] [facility] [id number] [address] [place] [phone] Feb, Bipolar 1 disorder, mixed F3 1.60 [place] [address] [facility] [id number] [address] [place] [address] Feb, Bipolar 1 disorder, mixed F3 1.60 [place] [address] [facility] [id number] [address] [place] [phone] Jan, Encounter for screening mamm ogram for breast cancer Z12.31 ; Other viral warts B07.8 and Allergic rhinitis J30.9 [place] [address] [facility] [id number] [address] [place] [phone] Jan, Bipolar 1 disorder, mixed F3 1.60 [place] [address] [facility] [id number] [address] [place] [phone] Jan, Bipolar 1 disorder, mixed F3 1.60 [place] [address] [facility] [id number] [address] [place] [phone] Jan, [place] [address] [facility] [id number] [address] [place] [phone] Jan, Bipolar 1 disorder, mixed F3 1.60 [place] [address] [facility] [id number] [address] [place] [phone] Jan, Bipolar 1 disorder, mixed F3 1.60 [place] [address] [facility] [id number] [address] [place] [phone] Jan, Allergic rhinitis J30.9 ; He maturia R31.9 and Colon cancer screening Z12.11 [place] [address] [facility] [id number] [address] [place] [id number] Dec, Bipolar 1 disorder, mixed F3 1.60 [facility] [address] [id number] [address] [place] [id number] Dec, Bipolar 1 disorder, mixed F3 1.60 ; Generalized anxiety disorder F41.1 and Other snf (current) drug therapy Z79.899 [facility] [address] [id number] [address] [place] [phone] Dec, Bipolar 1 disorder, mixed F3 1.60 [facility] [address] [id number] [address] [place] [phone] Dec, Bipolar 1 disorder, mixed F3 1.60 [facility] [address] [facility] [id number] [address] [place] [phone] Dec, Bipolar 1 disorder, mixed F3 1.60 [facility] [address] [facility] [id number] [address] [place] [phone] Dec, Low back pain M54.5 and Recu rrent urinary tract infection N39.0 [facility] [address] [id number] [address] [place] [id number] Nov, Bipolar 1 disorder, mixed F3 1.60 [facility] [address] [facility] [id number] [address] [place] [phone] Nov, Bipolar 1 disorder, mixed F3 1.60 [facility] [address] [facility] [id number] [address] [place] [id number] Nov, Bipolar 1 disorder, mixed F3 1.60 [facility] [address] [id number] [address] [place] [id number] Nov, Bipolar 1 disorder, mixed F3 1.60 [facility] [address] [facility] [id number] [address] [place] [phone] Nov, [facility] [address] [facility] [id number] [address] [place] [phone] Nov, Anesthesia of skin R20.0 ; F requent UTI N39.0 ; Tobacco abuse Z72.0 and Colon cancer screening Z12.11 [facility] [address] [place] [id number] [address] [place] [phone] Nov, Bipolar 1 disorder, mixed F3 1.60 [facility] [address] [place] [id number] [address] [place] [phone] October, Bipolar 1 disorder, mixed F3 1.60 [place] [address] [place] [id number] [place] [address] October, Bipolar 1 disorder, mixed F3 1.60 [place] [address] [place] [id number] [address] [place] [id number] October, Bipolar 1 disorder, mixed F3 1.60 [place] [address] [place] [id number] [address] [place] [phone] October, Bipolar 1 disorder, mixed F3 1.60 [place] [address] [address] October, Bipolar 1 disorder, mixed F3 1.60 [place] [address] [place] [id number] [address] [place] [id number] October, Cervicalgia M54.2 and Bipola r 1 disorder, mixed F31.60 [place] [address] [place] [id number] [address] [place] [id number] October, Hypertension I10 ; Hyperlipi demia, unspecified hyperlipidemia type E78.5 and Family history of thyroid disease Z83.49 [place] [address] [place] [id number] [address] [place] [phone] October, [place] [address] [place] [id number] [place] [address] October, Hypertension I10 ; Hyperlipi demia, unspecified hyperlipidemia type E78.5 and Family history of thyroid problem Z83.49 [place] [address] [place] [id number] [address] [place] [phone] October, Bipolar 1 disorder, mixed F3 1.60 [facility] [address] [facility] [id number] [address] [place] [phone] Sep, Bipolar 1 disorder, mixed F3 1.60 [facility] [address] [facility] [id number] [address] [place] [phone] Sep, Bipolar 1 disorder, mixed F3 1.60 [facility] [address] [facility] [id number] [address] [place] [address] Sep, Bipolar 1 disorder, mixed F3 1.60 [facility] [address] [facility] [id number] [address] [place] [id number] Sep, History of colon polyps Z86. 010 and Hematochezia K92.1 [facility] [address] [facility] [id number] [address] [place] [id number] Sep, Major depressive disorder, r ecurrent episode, moderate F33.1 [place] [address] [place] [id number] [address] [place] [id number] Sep, Bipolar 1 disorder, mixed F3 1.60 [facility] [address] [facility] [id number] [address] [place] [id number] Aug, Hot flashes due to menopause N95.1 [facility] [address] [facility] [id number] [address] [place] [id number] Aug, Bipolar 1 disorder, mixed F3 1.60 [facility] [address] [facility] [id number] [address] [place] [id number] Aug, [facility] [address] [facility] [id number] [address] [place] [id number] Aug, Bipolar 1 disorder, mixed F3 1.60 [facility] [address] [facility] [id number] [address] [place] [id number] Aug, Bipolar 1 disorder, mixed F3 1.60 [facility] [address] [facility] [id number] [address] [place] [id number] Aug, Hot flashes due to menopause N95.1 ; Cervicalgia M54.2 and Ataxia R27.0 [place] [address] [id number] Jul, Bipolar 1 disorder, mixed F3 1.60 [place] [address] Jul, Bipolar 1 disorder, mixed F3 1.60 [place] [address] Jul, Bipolar 1 disorder, mixed F3 1.60 [place] [address] Jul, Bipolar 1 disorder, mixed F3 1.60 [place] [address] Jul, Bipolar 1 disorder, mixed F3 1.60 [place] [address] [id number] Jul, Cervicalgia M54.2 ; Tremor R 25.1 ; Hearing abnormally acute, unspecified laterality H93.239 ; Alopecia L65.9 ; Encounter for immunization Z23 and Family history of thyroid disease Z83.49 [place] [address] [id number] Jul, Bipolar 1 disorder, mixed F3 1.60 [place] [address] [id number] Jun, [place] [address] Jun, Hearing disorder, unspecifie d laterality H93.299 [place] [address] [place] [id number] Jun, Bipolar 1 disorder, mixed F3 1.60 [place] [address] [id number] Jun, Bipolar 1 disorder, mixed F3 1.60 [facility] [address] [id number] [address] [place] [id number] Jun, Allergic rhinitis J30.9 [facility] [address] [id number] [address] [place] [phone] Jun, Bipolar 1 disorder, mixed F3 1.60 [facility] [address] [id number] [address] [place] [id number] Jun, Bipolar 1 disorder, mixed F3 1.60 [facility] [address] [id number] [address] [place] [id number] Jun, Allergic rhinitis J30.9 [facility] [address] [id number] [address] [place] [id number] Jun, Allergic rhinitis J30.9 [facility] [address] [facility] [id number] [address] [place] [phone] Jun, Bipolar 1 disorder, mixed F3 1.60 [facility] [address] [id number] [address] [place] [phone] May, Bipolar 1 disorder, mixed F3 1.60 [facility] [address] [id number] [address] [place] [id number] May, Bipolar 1 disorder, mixed F3 1.60 [facility] [address] [facility] [id number] [address] [place] [phone] May, [facility] [address] [facility] [id number] [address] [place] [id number] May, Bipolar 1 disorder, mixed F3 1.60 [facility] [address] [id number] [address] [place] [phone] May, Bipolar 1 disorder, mixed F3 1.60 [facility] [address] [facility] [id number] [address] [place] [phone] May, [facility] [address] [facility] [id number] [address] [place] [phone] May, [facility] [address] [facility] [id number] [address] [place] [phone] May, [facility] [address] [facility] [id number] [address] [place] [id number] May, Abdominal pain, unspecified location R10.9 [facility] [address] [facility] [id number] [address] [place] [phone] May, [facility] [address] [place] [id number] [address] [place] [phone] Apr, Hematuria R31.9 ; Ataxia R27 .0 and Hearing loss, unspecified laterality H91.90 [facility] [address] [facility] [id number] [address] [place] [id number] Apr, Bipolar 1 disorder, mixed F3 1.60 [facility] [address] [facility] [id number] [address] [place] [id number] Apr, Acute effusion of both middl e ears H65.193 [facility] [address] [facility] [id number] [address] [place] [id number] Apr, Hematuria R31.9 and Pyelonep hritis N12 [facility] [address] [facility] [id number] [address] [place] [phone] Apr, [facility] [address] [place] [id number] [address] [place] [phone] Mar, Bipolar 1 disorder, mixed F3 1.60 [facility] [address] [facility] [id number] [address] [place] [id number] Mar, [facility] [address] [facility] [id number] [address] [place] [phone] Mar, Bipolar 1 disorder, mixed F3 1.60 [facility] [address] [facility] [id number] [address] [place] [id number] Mar, Bipolar 1 disorder, mixed F3 1.60 [facility] [address] [place] [id number] [address] [place] [id number] Mar, Encounter for immunization Z 23 and Gastritis without bleeding, unspecified chronicity, unspecified gastritis type K29.70 [place] [address] [place] [id number] Mar, Bipolar 1 disorder, mixed F3 1.60 and Grief F43.20 [place] [address] [place] [address] Mar, Gastritis without bleeding, unspecified chronicity, unspecified gastritis type K29.70 [place] [address] Mar, Bipolar 1 disorder, mixed F3 1.60 [place] [address] Mar, Gastritis without bleeding, unspecified chronicity, unspecified gastritis type K29.70 [place] [address] [place] [id number] Mar, [place] [address] [id number] Feb, Bipolar 1 disorder, mixed F3 1.60 [place] [address] [place] [id number] Feb, Bipolar 1 disorder, mixed F3 1.60 and Grief F43.20 [place] [address] [place] [id number] Feb, Gastritis without bleeding, unspecified chronicity, unspecified gastritis type K29.70 [place] [address] [id number] 14 Feb, 2016 Bipolar 1 disorder, mixed F3 1.60 [facility] [address] [address] [id number] [place], [place] [id number] 09 Feb, 2016 Gastroesophageal reflux dise ase, esophagitis presence not specified K21.9 [place] [address] [place] [id number] Jan, Bipolar 1 disorder, mixed F3 1.60 [facility] [address] [facility] [id number] [address] [place] [id number] Jan, Bipolar 1 disorder, mixed F3 1.60 and Unsteady gait R26.81 [facility] [address] [facility] [id number] [address] [place] [phone] Jan, Bipolar 1 disorder, mixed F3 1.60 [facility] [address] [facility] [id number] [address] [place] [phone] Jan, Bipolar 1 disorder, mixed F3 1.60 and 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 [place] [address] [facility] [id number] [address] [place] [phone] Jan, Bipolar 1 disorder, mixed F3 1.60 [place] [address] [place] [id number] [address] [place] [id number] Jan, Bipolar 1 disorder, mixed F3 1.60 [place] [address] [facility] [id number] [address] [place] [id number] Jan, Bipolar 1 disorder, mixed F3 1.60 ; Grief F43.20 and Other snf (current) drug therapy Z79.899 [place] [address] [place] [id number] [address] [place] [id number] Jan, Bipolar 1 disorder, mixed F3 1.60 [place] [address] [facility] [id number] [address] [place] [id number] Dec, [place] [address] [facility] [id number] [address] [place] [id number] Dec, Bipolar 1 disorder, mixed F3 1.60 ; Vitamin D deficiency, unspecified E55.9 ; H/O allergic rhinitis Z87.09 ; Other chronic pain G89.29 and Dorsalgia, unspecified M54.9 [facility] [address] [facility] [id number] [address] [place] [phone] Dec, [place] [address] [facility] [id number] [address] [place] [phone] Dec, Bipolar 1 disorder, mixed F3 1.60 [facility] [address] [facility] [id number] [address] [place] [phone] Dec, Major depressive disorder, r ecurrent episode, moderate F33.1 [place] [address] [facility] [id number] [address] [place] [phone] Dec, Major depressive disorder, r ecurrent episode, moderate F33.1 [place] [address] [facility] [id number] [address] [place] [id number] Nov, [place] [address] [facility] [id number] [address] [place] [phone] Nov, Bipolar 1 disorder, mixed F3 1.60 [place] [address] [facility] [id number] [address] [place] [phone] Nov, Major depressive disorder, r ecurrent episode, moderate F33.1 [place] [address] [facility] [id number] [address] [place] [phone] Nov, Cervicalgia M54.2 ; Arthralg ia of hip, unspecified laterality M25.559 ; Allergic rhinitis J30.9 and Hormone replacement therapy Z79.890 [facility] [address] [facility] [id number] [address] [place] [id number] Nov, Other seasonal allergic rhin itis J30.2 [facility] [address] [facility] [id number] [address] [place] [id number] October, Major depressive disorder, r ecurrent episode, moderate F33.1 [facility] [address] [facility] [id number] [address] [place] [phone] October, Major depressive disorder, r ecurrent episode, moderate F33.1 and Arthralgia of hip, unspecified laterality M25.559 [place] [address] [facility] [id number] [address] [place] [id number] October, Grief F43.20 ; Hypertension I10 ; Hyperlipidemia, unspecified hyperlipidemia type E78.5 ; Other chronic pain G89.29 and Allergic rhinitis, unspecified allergic rhinitis type J30.9 [place] [address] [facility] [id number] [address] [place] [id number] October, Major depressive disorder, r ecurrent episode, moderate F33.1 [place] [address] [facility] [id number] [address] [place] [phone] Sep, Major depressive disorder, r ecurrent episode, moderate F33.1 [place] [address] [facility] [id number] [address] [place] [phone] Sep, [place] [address] [place] [id number] [place] [address] Sep, Major depressive disorder, r ecurrent episode, moderate F33.1 [place] [address] [place] [id number] [address] [place] [phone] Sep, Grief F43.20 [facility] [address] [facility] [id number] [address] [place] [id number] Aug, Major depressive disorder, r ecurrent episode, moderate F33.1 [place] [id number] [place] [address] Aug, Bipolar 1 disorder, mixed F3 1.60 [place] [id number] [place] [phone] Aug, Allergic rhinitis J30.9 ; Ce rvicalgia M54.2 and Low back pain M54.5 [facility] [address] [place] [id number] [address] [place] [id number] Aug, Major depressive disorder, r ecurrent episode, moderate F33.1 [facility] [address] [place] [id number] [address] [place] [id number] Aug, Sinusitis J32.9 and Tobacco 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 [facility] [address] [place] [id number] [address] [place] [phone] Aug, [facility] [address] [id number] [address] [place] [id number] Aug, Depressive disorder, not els ewhere classified F32.9 ; Hormone replacement therapy Z79.[address] scan, head R93.0 [facility] [address] [id number] [address] [place] [id number] Aug, Major depressive disorder, r ecurrent episode, moderate F33.1 [facility] [address] [id number] [address] [place] [id number] Jul, Major depressive disorder, r ecurrent episode, moderate F33.1 [facility] [address] [id number] [address] [place] [id number] Jul, Abdominal pain R10.9 and Hyp ertension I10 [facility] [address] [id number] [address] [place] [phone] Jul, [facility] [address] [id number] [address] [place] [phone] Jul, Major depressive disorder, r ecurrent episode, moderate F33.1 [facility] [address] [id number] [address] [place] [id number] Jul, [facility] [address] [id number] [address] [place] [id number] Jul, [facility] [address] [id number] [address] [place] [id number] Jun, [facility] [address] [id number] [address] [place] [phone] Jun, Depressive disorder, not els ewhere classified F32.9 [facility] [address] [id number] [address] [place] [phone] Jun, [facility] [address] [id number] [address] [place] [phone] Jun, [facility] [address] [id number] [address] [place] [phone] Jun, Arthralgia of hip, unspecifi ed laterality M25.559 ; Bruising, spontaneous R23.3 and Night sweats R61 [facility] [address] [id number] [address] [place] [phone] Jun, [facility] [address] [id number] [address] [place] [phone] Jun, [facility] [address] [id number] [address] [place] [phone] May, [facility] [address] [id number] [address] [place] [phone] May, Myalgia M79.1 and Screening, lipid Z13.220 [facility] [address] [id number] [address] [place] [id number] Apr, Status post cervical spinal fusion Z98.1 ; Fibromyalgia M79.7 and Unsteady gait R26.81 [facility] [address] [id number] [address] [place] [phone] Nov, [facility] [address] [id number] [address] [place] [id number] Nov, [facility] [address] [id number] [address] [place] [phone] October, [facility] [address] [id number] [address] [place] [phone] October, [facility] [address] [id number] [address] [place] [phone] October, [facility] [address] [id number] [address] [place] [phone] October, [facility] [address] [id number] [address] [place] [phone] October, [facility] [address] [id number] [address] [place] [phone] October, Dysuria 788.1 ; Nausea 787.0 2 and Urinary tract infection 599.0 [facility] [address] [id number] [address] [place] [id number] 14 Sep, 2014 [facility] [address] [id number] [address] [place] [phone] Sep, [facility] [address] [id number] [address] [place] [phone] Aug, [facility] [address] [id number] [address] [place] [phone] Aug, [facility] [address] [id number] [address] [place] [phone] 24 Aug, 2014 [facility] [address] [id number] [address] [place] [id number] 24 Aug, 2014 [facility] [address] [id number] [address] [place] [phone] Aug, [facility] [address] [id number] [address] [place] [phone] Aug, [facility] [address] [id number] [address] [place] [phone] Aug, [facility] [address] [id number] [address] [place] [id number] 19 Aug, 2014 [facility] [address] [id number] [address] [place] [phone] 19 Aug, 2014 [facility] [address] [id number] [address] [place] [id number] 18 Aug, 2014 [facility] [address] [id number] [address] [place] [id number] 18 Aug, 2014 [facility] [address] [id number] [address] [place] [id number] 13 Aug, 2014 [facility] [address] [id number] [address] [place] [address], [place] [address] 13 Aug, 2014 [facility] [address] [id number] [address] [place] [address], [place] [address] 11 Aug, 2014 [facility] [address] [id number] [address] [place] [address], [place] [address] 11 Aug, 2014 [facility] [address] [id number] [address] [place] [address], [place] [address] 06 Aug, 2014 [facility] [address] [id number] [address] [place] [address], [place] [address] 06 Aug, 2014 [facility] [address] [id number] [address] [place] [address], [place] [address] 05 Aug, 2014 [facility] [address] [id number] [address] [place] [address], [place] [address] Aug, 2014 [facility] [address] [id number] [address] [place] [address], [place] [address] 04 Aug, 2014 [facility] [address] [id number] [address] [place] [address], [place] [address] Aug, [facility] [address] [id number] [address] [place] [address], [place] [address] Aug, [facility] [address] [id number] [address] [place] [address], [place] [address] Jul, [facility] [address] [id number] [address] [place] [address], [place] [address] Jul, 2014 [facility] [address] [id number] [address] [place] [address], [place] [address] Jul, 2014 [facility] [address] [id number] [address] [place] [address], [place] [address] Jul, 2014 [facility] [address] [id number] [address] [place] [address], [place] [address] Jul, 2014 [facility] [address] [id number] [address] [place] [address], [place] [address] Jul, 2014 [facility] [address] [id number] [address] [place] [address], [place] [address] Jul, 2014 [facility] [address] [id number] [address] [place] [address], [place] [address] Jul, 2014 [facility] [address] [id number] [address] [place] [address], [place] [address] Jul, 2014 [facility] [address] [id number] [address] [place] [address], [place] [address] Jul, 2014 [facility] [address] [id number] [address] [place] [address], [place] [address] Jul, [facility] [address] [id number] [address] [place] [address], [place] [address] Jul, 2014 [facility] [address] [id number] [address] [place] [address], [place] [address] Jul, [facility] [address] [id number] [address] [place] [address], [place] [address] Jul, [facility] [address] [id number] [address] [place] [address], [place] [address] Jun, [facility] [address] [id number] [address] [place] [address], [place] [address] Jun, [facility] [address] [id number] [address] [place] [address], [place] [address] Jun, [facility] [address] [id number] [address] [place] [address], [place] [address] Jun, [facility] [address] [id number] [address] [place] [address], [place] [address] Jun, [facility] [address] [id number] [address] [place] [address], [place] [address] Jun, [facility] [address] [id number] [address] [place] [address], [place] [address] May, [facility] [address] [id number] [address] [place] [address], [place] [address] May, [facility] [address] [id number] [address] [place] [address], [place] [address] May, [facility] [address] [id number] [address] [place] [address], [place] [address] May, [facility] [address] [id number] [address] [place] [address], [place] [address] May, [facility] [address] [id number] [address] [place] [address], [place] [address] May, [facility] [address] [id number] [address] [place] [address], [place] [address] Apr, [facility] [address] [id number] [address] [place] [address], [place] [address] Apr, [facility] [address] [id number] [address] [place] [address], [place] [address] Apr, [facility] [address] [id number] [address] [place] [address], [place] [address] Apr, [facility] [address] [id number] [address] [place] [address], [place] [address] Apr, [facility] [address] [id number] [address] [place] [address], [place] [address] Apr, [facility] [address] [id number] [address] [place] [address], [place] [address] Mar, [facility] [address] [id number] [address] [place] [address], [place] [address] Mar, [facility] [address] [id number] [address] [place] [address], [place] [address] Mar, [facility] [address] [id number] [address] [place] [address], [place] [address] Mar, [facility] [address] [id number] [address] [place] [address], [place] [address] Mar, [facility] [address] [id number] [address] [place] [address], [place] [address] Mar, [facility] [address] [id number] [address] [place] [address], [place] [address] Mar, [facility] [address] [id number] [address] [place] [address], [place] [address] Mar, [facility] [address] [id number] [address] [place] [address], [place] [address] Mar, [facility] [address] [id number] [address] [place] [address], [place] [address] Mar, [facility] [address] [id number] [address] [place] [address], [place] [address] Mar, [facility] [address] [id number] [address] [place] [address], [place] [address] Mar, [facility] [address] [id number] [address] [place] [address], [place] [address] 30 Feb, 2013 [facility] [address] [id number] [address] [place] [address], [place] [address] 29 Feb, 2013 [facility] [address] [id number] [address] [place] [address], [place] [address] 29 Feb, 2013 [facility] [address] [id number] [address] [place] [address], [place] [address] 23 Feb, 2013 [facility] [address] [id number] [address] [place] [address], [place] [address] 23 Feb, 2013 [facility] [address] [id number] [address] [place] [address], [place] [address] 08 Feb, 2013 [facility] [address] [id number] [address] [place] [address], [place] [address] 08 Feb, 2013 [facility] [address] [id number] [address] [place] [address], [place] [address] Jan, [facility] [address] [id number] [address] [place] [address] Jan, [facility] [address] [id number] [facility] [place] [address] Jan, [facility] [address] [id number] [address] [place] [address], [place] [address] Dec, [facility] [address] [id number] [address] [place] [address], [place] [address] Dec, [facility] [address] [id number] [address] [place] [address], [place] [address] Dec, [facility] [address] [id number] [address] [place] [address], [place] [address] Dec, [facility] [address] [id number] [address] [place] [address], [place] [address] Sep, [facility] [address] [id number] [address] [place] [address], [place] [address] Sep, [facility] [address] [id number] [address] [place] [address], [place] [address] Sep, [facility] [address] [id number] [address] [place] [address], [place] [address] Sep, [facility] [facility] [address] [id number] [address] [place] [address], [place] [address] Sep, [facility] [address] [id number] [address] [place] [address], [place] [address] Sep, [facility] [address] [id number] [address] [place] [address], [place] [address] Sep, [facility] [address] [id number] [address] [place] [address], [place] [address] Sep, [facility] [address] [id number] [address] [place] [address], [place] [address] Aug, [facility] [address] [id number] [address] [place] [address], [place] [address] Aug, [facility] [address] [id number] [address] [place] [address], [place] [address] May, [facility] [address] [id number] [address] [place] [address], [place] [address] May, [facility] [address] [id number] [address] [place] [address], [place] [address] Apr, [facility] [address] [id number] [address] [place] [address], [place] [address] Apr, [facility] [address] [id number] [address] [place] [address], [place] [address] Apr, [facility] [address] [id number] [address] [place] [address], [place] [address] Apr, [facility] [address] [id number] [address] [place] [address], [place] [address] Apr, [facility] [address] [id number] [address] [place] [address], [place] [address] Apr, [facility] [address] [id number] [address] [place] [address], [place] [address] 18 May, 2012 [facility] [address] [id number] [address] [place] [address], [place] [address] 18 May, 2012 [facility] [address] [id number] [address] [place] [address], [place] [address] 15 May, 2012 [facility] [address] [id number] [address] [place] [address], [place] [address] 15 May, 2012 [facility] [address] [id number] [address] [place] [address], [place] [address] 13 May, 2012 [facility] [address] [id number] [address] [place] [address], [place] [address] 13 May, 2012 [facility] [address] [id number] [address] [place] [address], [place] [address] 13 Apr, 2012 [facility] [address] [id number] [address] [place], [place] [address] [address] Apr, [facility] [address] [id number] [address] [place] [address], [place] [address] Apr, [facility] [address] [id number] [address] [place] [address], [place] [address] Apr, [facility] [address] [id number] [address] [place] [address], [place] [address] Apr, [facility] [address] [id number] [address] [place] [address], [place] [address] Apr, [facility] [address] [id number] [address] [place] [address], [place] [address] Apr, [facility] [address] [id number] [address] [place] [address], [place] [address] Apr, [facility] [address] [id number] [address] [place] [address], [place] [address] Apr, [facility] [address] [id number] [address] [place] [address], [place] [address] Apr, [facility] [address] [id number] [address] [place] [address], [place] [address] Mar, [facility] [address] [id number] [address] [place] [address] Mar, [facility] [address] [id number] [address] [place] [address] Mar, [facility] [address] [id number] [address] [place] [id number] Mar, [facility] [address] [id number] [address] [place] [address] Mar, [facility] [address] [id number] [address] [place] [address] Mar, [facility] [address] [id number] [address] [place] [address] Mar, [facility] [address] [id number] [address] [place] [address], [place] [address] Mar, [facility] [address] [id number] [address] [place] [address], [place] [address] Mar, [facility] [address] [id number] [address] [place] [address], [place] [address] 25 Feb, 2012 [facility] [address] [id number] [address] [place] [address], [place] [address] 16 Feb, 2012 [facility] [address] [id number] [address] [place] [address], [place] [address] 11 Feb, 2012 [facility] [address] [id number] [address] [place] [address], [place] [address] Jan, [facility] [address] [id number] [address] [place] [address], [place] [address] Jan, [facility] [address] [id number] [address] [place] [address], [place] [address] Jan, [facility] [address] [id number] [address] [place] [address], [place] [address] Jan, [facility] [address] [id number] [address] [place] [address], [place] [address] Jan, [facility] [address] [id number] [address] [place] [address], [place] [address] Jan, [facility] [address] [id number] [address] [place] [address], [place] [address] Jan, [facility] [address] [id number] [address] [place] [address], [place] [address] Jan, [facility] [address] [id number] [address] [place] [address], [place] [address] Jan, [facility] [address] [id number] [address] [place] [address], [place] [address] Jan, [facility] [address] [id number] [address] [place] [address], [place] [address] Dec, [facility] [address] [id number] [address] [place] [address], [place] [address] Dec, [facility] [address] [id number] [address] [place] [address], [place] [address] Dec, [facility] [address] [id number] [address] [place] [address], [place] [address] Dec, [facility] [address] [id number] [address] [place] [address], [place] [address] Nov, [facility] [address] [id number] [address] [place] [address], [place] [address] Nov, [facility] [address] [id number] [address] [place] [address], [place] [address] Nov, [facility] [address] [id number] [address] [place] [address], [place] [address] October, [facility] [address] [id number] [address] [place] [address], [place] [address] October, [facility] [address] [id number] [address] [place] [address], [place] [address] October, [facility] [address] [id number] [address] [place] [address], [place] [address] October, [facility] [address] [id number] [address] [place] [address], [place] [address] October, [facility] [address] [id number] [address] [place] [address], [place] [address] October, [facility] [address] [id number] [address] [place] [address], [place] [address] Aug, [facility] [address] [id number] [address] [place] [address], [place] [address] Mar, [facility] [address] [id number] [address] [place] [address], [place] [address] 16 Nov, 2010 [facility] [address] [id number] [address] [address] May, [facility] [address] [facility] [id number] [address] [place] [address] May, [facility] [address] [facility] [id number] [address] [place] [address] Apr, [facility] [address] [facility] [id number] [address] [place] [id number] Mar, [facility] [address] [facility] [id number] [address] [place] [id number] Mar, IMMUNIZATIONS No Known Immunizations SOCIAL HISTORY Never Assessed REASON FOR VISIT Requests return call PLAN OF CARE VITAL SIGNS MEDICATIONS Unknown [...]
--- OUTSIDE RECORDS SUMMARY | 2019-06-19 05:32 | XMS REPORT ---
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 Name Role Phone NAHOMY HANCOCK Unavailable PROBLEMS Type Condition ICD9-CM Code CDM26-QK Code Onset Dates Condition S tatus SNOMED Code Problem Hormone replacement therapy Z79.890 Ac tive 338414491 Problem Abnormal CT scan, head R93.0 Active 340836685 Problem Sensorineural hearing loss (SNHL) of both ears H90 .3 Active 610051777 Problem History of colon polyps Z86.010 Active 966116595 Problem Bruising, spontaneous R23.3 Active 437323423 Problem Generalized anxiety disorder F41.1 A ctive 80145867 Problem Arthralgia of hip, unspecified laterality M25.559 Active 19878171 Problem Hematuria, unspecified type R31.9 Ac tive 50722938 Problem Imbalance R26.89 Active 640010945 Problem Hammer toe of right foot M20.41 Activ e 425549194 Problem Plantar wart of right foot B07.0 Act mitchell [id number] Problem Sciatica of left side M54.32 Active 25419255 Problem Hyperlipidemia, unspecified hyperlipidemia type E7 8.5 Active 45612959 Problem Hypertension I10 Active 3156133 3 Problem Night sweats R61 Active 2718674 0 Problem Fibromyalgia M79.7 Active 7459770 7 Problem Major depressive disorder, recurrent episode, moderate F33.1 Active 656829023 Problem Acute left-sided low back pain with left-sided sciatica M54.42 Active 569437187 Problem Bladder spasm N32.89 Active 183449 006 Problem Gastritis without bleeding, unspecified chronicity, unspecified gastritis type K29.70 Active 244377487 Problem Bipolar 1 disorder, mixed F31.60 Acti ve 68615063 Problem Grief F43.20 Active 57194952 Problem Other chronic pain G89.29 Active 8 0938965 Problem Allergic rhinitis J30.9 Active 61 147956 Problem Hot flashes due to menopause N95.1 A ctive 651637681 Problem Ataxia R27.0 Active 18873661 Problem Hearing loss, unspecified laterality H91.90 Active 14881756 ALLERGIES Substance Reaction Event Type Date Status Morphine Sulfate Unknown Drug Allergy Nov, Active Iodine Unknown Drug Allergy Nov, Active Lyrica 75 Mg Capsule "felt weird" Non Drug Allergy Nov, Act mitchell ENCOUNTERS Encounter Location Date Diagnosis [facility] [id number] [place] [address] Mar, [facility] [address] [facility] [id number] [address] [place] [address] Feb, [facility] [id number] [place] [address] Feb, [facility] [id number] [place] [address] Jan, [facility] [id number] [place] [address] Jan, [facility] [id number] [place] [address] Jan, Bipolar 1 disorder, mixed F3 1.60 [facility] [id number] [place] [address] Jan, Bipolar 1 disorder, mixed F3 1.60 [facility] [id number] [place] [address] Jan, Bipolar 1 disorder, mixed F3 1.60 [facility] [address] [facility] [id number] [address] [place] [address] Jan, Bipolar 1 disorder, mixed F3 1.60 [facility] [id number] [place] [address] Dec, Bipolar 1 disorder, mixed F3 1.60 ; Generalized anxiety disorder F41.1 and 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.899 [facility] [address] [facility] [id number] [address] [place] [address] Dec, Other retirement (current) dr bin feliz Z79.899 [facility] [address] [facility] [id number] [address] [place] [address] Dec, Bipolar 1 disorder, mixed F3 1.60 [facility] [address] [facility] [id number] [address] [place] [address] Dec, Bipolar 1 disorder, mixed F3 1.60 [facility] [address] [facility] [id number] [address] [place] [address] Nov, Bipolar 1 disorder, mixed F3 1.60 [facility] [address] [facility] [id number] [address] [place] [address] Nov, Bipolar 1 disorder, mixed F3 1.60 [facility] [address] [facility] [id number] [address] [place] [address] Nov, Bipolar 1 disorder, mixed F3 1.60 [facility] [address] [facility] [id number] [address] [place] [address] Nov, Allergic rhinitis J30.9 [facility] [address] [facility] [id number] [address] [place] [address] Nov, Allergic rhinitis J30.9 [facility] [address] [facility] [id number] [address] [place] [address] Nov, [facility] [address] [facility] [id number] [address] [place] [address] Nov, Bipolar 1 disorder, mixed F3 1.60 [facility] [address] [facility] [id number] [address] [place] [address] Nov, Fibromyalgia M79.7 and Aller gic rhinitis J30.9 [facility] [address] [facility] [id number] [address] [place] [address] October, Bipolar 1 disorder, mixed F3 1.60 [facility] [id number] [place] [address] October, Acute nasopharyngitis J00 [facility] [id number] [place] [address] October, Bitten or stung by nonvenomo us insect and other nonvenomous arthropods, initial encounter W57.XXXA and Insect bite (nonvenomous) of abdominal wall, initial encounter S30.861A [facility] [id number] [place] [address] October, Insect bite (nonvenomous) of abdominal wall, initial encounter S30.861A ; Bitten or stung by nonvenomous insect and other nonvenomous arthropods, initial encounter W57.XXXA ; Allergic rhinitis J30.9 and Low back pain M54.5 [facility] [id number] [place] [address] October, Bipolar 1 disorder, mixed F3 1.60 [facility] [id number] [place] [address] October, [facility] [address] [address] October, [facility] [id number] [place] [address] October, Bipolar 1 disorder, mixed F3 1.60 [facility] [id number] [place] [address] Sep, Bipolar 1 disorder, mixed F3 1.60 [facility] [id number] [place] [address] Sep, Other chronic pain G89.29 [facility] [id number] [place] [address] Sep, [facility] [id number] [place] [address] Sep, Bipolar 1 disorder, mixed F3 1.60 [facility] [address] [id number] [address] [place] [address] Sep, Allergic rhinitis J30.9 and Sciatica of left side M54.32 [facility] [address] [facility] [id number] [address] [place] [address] Sep, Bipolar 1 disorder, mixed F3 1.60 [facility] [address] [facility] [id number] [address] [place] [address] Sep, Bipolar 1 disorder, mixed F3 1.60 and Generalized anxiety disorder F41.1 [facility] [address] [id number] [address] [place] [address] Aug, [facility] [address] [facility] [id number] [address] [place] [address] Aug, Bipolar 1 disorder, mixed F3 1.60 [facility] [address] [facility] [id number] [address] [place] [address] Aug, Bipolar 1 disorder, mixed F3 1.60 [facility] [address] [facility] [id number] [address] [place] [address] Aug, [facility] [address] [facility] [id number] [address] [place] [address] Aug, Generalized anxiety disorder F41.1 [facility] [address] [facility] [id number] [address] [place] [address] Aug, Bipolar 1 disorder, mixed F3 1.60 [facility] [address] [facility] [id number] [address] [place] [address] Aug, Plantar wart of right foot B 07.0 [facility] [address] [facility] [id number] [address] [place] [address] Aug, Bipolar 1 disorder, mixed F3 1.60 [facility] [address] [facility] [id number] [address] [place] [address] Jul, Bipolar 1 disorder, mixed F3 1.60 [facility] [id number] [place] [address] Jul, [facility] [id number] [place] [address] Jul, Bipolar 1 disorder, mixed F3 1.60 [facility] [id number] [place] [address] 09 Jul, 2017 Generalized anxiety disorder F41.1 [facility] [id number] [place] [address] Jul, Bipolar 1 disorder, mixed F3 1.60 [facility] [address] [address] Jul, Acute left-sided low back pa in with left-sided sciatica M54.42 [facility] [id number] [place] [address] Jul, Coccydynia M53.3 [facility] [id number] [place] [address] Jun, Bipolar 1 disorder, mixed F3 1.60 [facility] [id number] [place] [address] Jun, Acute nasopharyngitis J00 [facility] [id number] [place] [address] Jun, Bipolar 1 disorder, mixed F3 1.60 [facility] [id number] [place] [address] Jun, Fibromyalgia M79.7 [facility] [id number] [place] [address] Jun, Bipolar 1 disorder, mixed F3 1.60 [facility] [id number] [place] [address] Jun, Fibromyalgia M79.7 and Bipol ar 1 disorder, mixed F31.60 [facility] [address] [address] May, Bipolar 1 disorder, mixed F3 1.60 ; Generalized anxiety disorder F41.1 and 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 [address] [address] [address] [address] May, Bipolar 1 disorder, mixed F3 1.60 [facility] [address] [address] 14 May, 2017 Cough R05 and Body aches R52 [facility] [address] [address] 10 May, 2017 Bladder spasm N32.89 and Acu te cystitis without hematuria N30.00 [place] [address] [address] 07 May, 2017 Bipolar 1 disorder, mixed F3 1.60 [address] [address] [address] 30 Apr, 2017 [address] [address] [address] Apr, Major depressive disorder, r ecurrent episode, moderate F33.1 and Encounter for immunization Z23 [address] [address] [address] Apr, Bipolar 1 disorder, mixed F3 1.60 [address] [address] [address] Apr, Bipolar 1 disorder, mixed F3 1.60 [address] [address] [address] 16 Apr, 2017 Bipolar 1 disorder, mixed F3 1.60 [address] [address] [address] 13 Apr, 2017 Yeast vaginitis B37.3 [address] [address] [address] Apr, Bipolar 1 disorder, mixed F3 1.60 [facility] [id number] [place] [address] Apr, Encounter for immunization Z 23 and Cellulitis L03.90 [facility] [address] [facility] [id number] [address] [place] [address] Apr, Bipolar 1 disorder, mixed F3 1.60 [facility] [id number] [place] [address] Mar, Bipolar 1 disorder, mixed F3 1.60 [facility] [id number] [place] [address] Mar, Bipolar 1 disorder, mixed F3 1.60 [facility] [id number] [place] [address] Mar, Imbalance R26.89 and Encount er for immunization Z23 [facility] [id number] [place] [address] Mar, Generalized anxiety disorder F41.1 [facility] [id number] [place] [address] Mar, Bipolar 1 disorder, mixed F3 1.60 [facility] [id number] [place] [address] Mar, Generalized anxiety disorder F41.1 [facility] [id number] [place] [address] Mar, Bipolar 1 disorder, mixed F3 1.60 [facility] [id number] [place] [address] Mar, Bipolar 1 disorder, mixed F3 1.60 [facility] [id number] [place] [address] Feb, Bipolar 1 disorder, mixed F3 1.60 [facility] [id number] [place] [address] Feb, Bipolar 1 disorder, mixed F3 1.60 and Generalized anxiety disorder F41.1 [facility] [address] [facility] [id number] [address] [place] [address] Feb, Gastritis without bleeding, unspecified chronicity, unspecified gastritis type K29.70 ; Hammer toe of right foot M20.41 and Other viral warts B07.8 [facility] [address] [facility] [id number] [address] [place] [address] Feb, Bipolar 1 disorder, mixed F3 1.60 [place] [address] [facility] [id number] [address] [place] [address] Feb, Bipolar 1 disorder, mixed F3 1.60 [place] [id number] [place] [address] Feb, Bipolar 1 disorder, mixed F3 1.60 [place] [id number] [place] [address] Jan, Encounter for screening mamm ogram for breast cancer Z12.31 ; Other viral warts B07.8 and Allergic rhinitis J30.9 [place] [address] [facility] [id number] [address] [place] [address] Jan, Bipolar 1 disorder, mixed F3 1.60 [place] [address] [facility] [id number] [address] [place] [address] Jan, Bipolar 1 disorder, mixed F3 1.60 [place] [address] [facility] [id number] [address] [place] [address] Jan, [place] [address] [facility] [id number] [address] [place] [address] Jan, Bipolar 1 disorder, mixed F3 1.60 [place] [id number] [place] [address] Jan, Bipolar 1 disorder, mixed F3 1.60 [place] [id number] [place] [address] 02 Aug, 2017 Allergic rhinitis J30.9 ; He maturia R31.9 and Colon cancer screening Z12.11 [facility] [address] [facility] [id number] [address] [place] [address] Dec, Bipolar 1 disorder, mixed F3 1.60 [facility] [address] [facility] [id number] [address] [place] [address] Dec, Bipolar 1 disorder, mixed F3 1.60 ; Generalized anxiety disorder F41.1 and 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 [facility] [address] [facility] [id number] [address] [place] [address] Dec, Bipolar 1 disorder, mixed F3 1.60 [place] [id number] [place] [address] Dec, Bipolar 1 disorder, mixed F3 1.60 [place] [id number] [place] [address] Dec, Bipolar 1 disorder, mixed F3 1.60 [place] [id number] [place] [address] Dec, Low back pain M54.5 and Recu rrent urinary tract infection N39.0 [facility] [id number] [place] [address] Nov, Bipolar 1 disorder, mixed F3 1.60 [facility] [id number] [place] [address] Nov, Bipolar 1 disorder, mixed F3 1.60 [facility] [address] [facility] [id number] [address] [place] [address] Nov, Bipolar 1 disorder, mixed F3 1.60 [facility] [id number] [place] [address] Nov, Bipolar 1 disorder, mixed F3 1.60 [facility] [id number] [place] [address] Nov, [facility] [id number] [place] [address] Nov, Anesthesia of skin R20.0 ; F requent UTI N39.0 ; Tobacco abuse Z72.0 and Colon cancer screening Z12.11 [place] [address] [place] [id number] [place] [address] Nov, Bipolar 1 disorder, mixed F3 1.60 [place] [address] [place] [address] October, Bipolar 1 disorder, mixed F3 1.60 [place] [address] [place] [address] October, Bipolar 1 disorder, mixed F3 1.60 [place] [address] [address] October, Bipolar 1 disorder, mixed F3 1.60 [place] [address] [address] October, Bipolar 1 disorder, mixed F3 1.60 [place] [address] [place] [id number] [place] [address] October, Bipolar 1 disorder, mixed F3 1.60 [place] [address] [address] October, Cervicalgia M54.2 and Bipola r 1 disorder, mixed F31.60 [place] [address] [place] [id number] [place] [address] October, Hypertension I10 ; Hyperlipi demia, unspecified hyperlipidemia type E78.5 and Family history of thyroid disease Z83.49 [place] [address] [place] [id number] [place] [address] October, [place] [address] [place] [id number] [place] [address] October, Hypertension I10 ; Hyperlipi demia, unspecified hyperlipidemia type E78.5 and Family history of thyroid problem Z83.49 [facility] [address] [facility] [id number] [address] [place] [address] October, Bipolar 1 disorder, mixed F3 1.60 [facility] [address] [facility] [id number] [address] [place], [place] [address] Sep, Bipolar 1 disorder, mixed F3 1.60 [facility] [address] [place] [id number] [place] [address] Sep, Bipolar 1 disorder, mixed F3 1.60 [facility] [address] [facility] [id number] [address] [place] [address] Sep, Bipolar 1 disorder, mixed F3 1.60 [place] [address] [place] [id number] [place] [address] Sep, History of colon polyps Z86. 010 and Hematochezia K92.1 [place] [address] [place] [id number] [place] [address] Sep, Major depressive disorder, r ecurrent episode, moderate F33.1 [facility] [address] [facility] [id number] [address] [place] [address] Sep, Bipolar 1 disorder, mixed F3 1.60 [facility] [address] [place] [id number] [place] [address] Aug, Hot flashes due to menopause N95.1 [facility] [address] [facility] [id number] [address] [place] [address] Aug, Bipolar 1 disorder, mixed F3 1.60 [facility] [address] [facility] [id number] [address] [place] [address] Aug, [facility] [address] [facility] [id number] [address] [place] [address] Aug, Bipolar 1 disorder, mixed F3 1.60 [facility] [address] [facility] [id number] [address] [place] [address] Aug, Bipolar 1 disorder, mixed F3 1.60 [place] [address] [address] Aug, Hot flashes due to menopause N95.1 ; Cervicalgia M54.2 and Ataxia R27.0 [place] [address] [id number] Jul, Bipolar 1 disorder, mixed F3 1.60 [place] [address] [place] [address] Jul, Bipolar 1 disorder, mixed F3 1.60 [place] [id number] Jul, Bipolar 1 disorder, mixed F3 1.60 [place] [address] [address] Jul, Bipolar 1 disorder, mixed F3 1.60 [place] [address] [address] Jul, Bipolar 1 disorder, mixed F3 1.60 [place] [address] [address] Jul, Cervicalgia M54.2 ; Tremor R 25.1 ; Hearing abnormally acute, unspecified laterality H93.239 ; Alopecia L65.9 ; Encounter for immunization Z23 and Family history of thyroid disease Z83.49 [place] [address] [address] Jul, Bipolar 1 disorder, mixed F3 1.60 [place] [address] [address] Jun, [place] [address] [place] [address] Jun, Hearing disorder, unspecifie d laterality H93.299 [place] [address] [address] Jun, Bipolar 1 disorder, mixed F3 1.60 [facility] [address] [id number] [address] [place] [id number] Jun, Bipolar 1 disorder, mixed F3 1.60 [facility] [address] [id number] [address] [place] [id number] Jun, Allergic rhinitis J30.9 [facility] [address] [id number] [address] [place] [id number] Jun, Bipolar 1 disorder, mixed F3 1.60 [facility] [address] [id number] [address] [place] [id number] Jun, Bipolar 1 disorder, mixed F3 1.60 [facility] [address] [id number] [address] [place] [id number] Jun, Allergic rhinitis J30.9 [facility] [address] [id number] [address] [place] [id number] Jun, Allergic rhinitis J30.9 [facility] [address] [id number] [address] [place] [address] Jun, Bipolar 1 disorder, mixed F3 1.60 [facility] [address] [id number] [address] [place] [id number] May, Bipolar 1 disorder, mixed F3 1.60 [facility] [address] [id number] [address] [place] [address] May, Bipolar 1 disorder, mixed F3 1.60 [facility] [address] [id number] [address] [place] [address] May, [facility] [address] [id number] [address] [place] [address] May, Bipolar 1 disorder, mixed F3 1.60 [facility] [address] [id number] [address] [place] [id number] 06 May, 2016 Bipolar 1 disorder, mixed F3 1.60 [facility] [address] [id number] [address] [place] [id number] May, [facility] [address] [facility] [id number] [address] [place] [address] May, [facility] [address] [facility] [id number] [address] [place] [address] May, [facility] [address] [place] [id number] [address] [place] [id number] May, Abdominal pain, unspecified location R10.9 [facility] [address] [facility] [id number] [address] [place] [address] May, [facility] [address] [place] [id number] [address] [place] [address] Apr, Hematuria R31.9 ; Ataxia R27 .0 and Hearing loss, unspecified laterality H91.90 [facility] [address] [place] [place] [id number] [address] [place] [address] Apr, Bipolar 1 disorder, mixed F3 1.60 [facility] [address] [facility] [id number] [address] [place] [address] Apr, Acute effusion of both middl e ears H65.193 [facility] [address] [facility] [id number] [address] [place] [address] Apr, Hematuria R31.9 and Pyelonep hritis N12 [facility] [address] [place] [id number] [address] [place] [address] Apr, [facility] [address] [place] [place] [id number] [address] [place] [address] Mar, Bipolar 1 disorder, mixed F3 1.60 [facility] [address] [place] [id number] [address] [place] [id number] Mar, [facility] [address] [facility] [id number] [address] [place] [address] Mar, Bipolar 1 disorder, mixed F3 1.60 [facility] [address] [place] [id number] [address] [place] [address] Mar, Bipolar 1 disorder, mixed F3 1.60 [place] [address] [place] [id number] [address] [place] [id number] Mar, Encounter for immunization Z 23 and Gastritis without bleeding, unspecified chronicity, unspecified gastritis type K29.70 [place] [address] [place] [id number] [address] [place] [address] Mar, Bipolar 1 disorder, mixed F3 1.60 and Grief F43.20 [place] [address] [facility] [id number] [address] [place] [address] Mar, Gastritis without bleeding, unspecified chronicity, unspecified gastritis type K29.70 [place] [address] [place] [id number] [address] [place] [address] Mar, Bipolar 1 disorder, mixed F3 1.60 [place] [address] [place] [id number] [address] [place] [address] Mar, Gastritis without bleeding, unspecified chronicity, unspecified gastritis type K29.70 [place] [address] [place] [id number] [address] [place] [address] Mar, [place] [address] [place] [id number] [address] [place] [address] Feb, Bipolar 1 disorder, mixed F3 1.60 [place] [address] [place] [id number] [address] [place] [address] Feb, Bipolar 1 disorder, mixed F3 1.60 and Grief F43.20 [place] [address] [facility] [id number] [address] [place] [address] Feb, Gastritis without bleeding, unspecified chronicity, unspecified gastritis type K29.70 [place] [address] [place] [id number] [address] [place] [address] 14 Feb, 2016 Bipolar 1 disorder, mixed F3 1.60 [facility] [address] [facility] [id number] [address] [place] [address] Feb, Gastroesophageal reflux dise ase, esophagitis presence not specified K21.9 [place] [id number] Jan, Bipolar 1 disorder, mixed F3 1.60 [place] [address] Jan, Bipolar 1 disorder, mixed F3 1.60 and Unsteady gait R26.81 [place] [address] Jan, Bipolar 1 disorder, mixed F3 1.60 [place] [address] Jan, Bipolar 1 disorder, mixed F3 1.60 and 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 [place] [address] Jan, Bipolar 1 disorder, mixed F3 1.60 [place] [address] [address] Jan, Bipolar 1 disorder, mixed F3 1.60 [place] [address] Jan, Bipolar 1 disorder, mixed F3 1.60 ; Grief F43.20 and 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 [place] [address] [place] [address] Jan, Bipolar 1 disorder, mixed F3 1.60 [place] [address] [place] [address] Dec, [place] [address] [place] [address] Dec, Bipolar 1 disorder, mixed F3 1.60 ; Vitamin D deficiency, unspecified E55.9 ; H/O allergic rhinitis Z87.09 ; Other chronic pain G89.29 and Dorsalgia, unspecified M54.9 [facility] [address] [id number] [address] [place] [address] Dec, [facility] [address] [id number] [address] [place] [address] Dec, Bipolar 1 disorder, mixed F3 1.60 [facility] [address] [id number] [address] [place] [address] Dec, Major depressive disorder, r ecurrent episode, moderate F33.1 [facility] [address] [id number] [address] [place] [address] Dec, Major depressive disorder, r ecurrent episode, moderate F33.1 [place] [address] [facility] [id number] [address] [place] [address] Nov, [facility] [address] [facility] [id number] [address] [place] [address] Nov, Bipolar 1 disorder, mixed F3 1.60 [facility] [address] [facility] [id number] [address] [place] [address] Nov, Major depressive disorder, r ecurrent episode, moderate F33.1 [place] [address] [facility] [id number] [address] [place] [address] Nov, Cervicalgia M54.2 ; Arthralg ia of hip, unspecified laterality M25.559 ; Allergic rhinitis J30.9 and Hormone replacement therapy Z79.890 [facility] [address] [facility] [id number] [address] [place] [address] Nov, Other seasonal allergic rhin itis J30.2 [facility] [address] [facility] [id number] [address] [place] [address] October, Major depressive disorder, r ecurrent episode, moderate F33.1 [facility] [address] [facility] [id number] [address] [place] [address] October, Major depressive disorder, r ecurrent episode, moderate F33.1 and Arthralgia of hip, unspecified laterality M25.559 [place] [address] [facility] [id number] [address] [place] [address] October, Grief F43.20 ; Hypertension I10 ; Hyperlipidemia, unspecified hyperlipidemia type E78.5 ; Other chronic pain G89.29 and Allergic rhinitis, unspecified allergic rhinitis type J30.9 [place] [address] [facility] [id number] [address] [place] [address] October, Major depressive disorder, r ecurrent episode, moderate F33.1 [place] [address] [facility] [id number] [address] [place] [address] Sep, Major depressive disorder, r ecurrent episode, moderate F33.1 [place] [address] [place] [id number] [address] [place] [address] Sep, [place] [address] [place] [id number] [place] [address] Sep, Major depressive disorder, r ecurrent episode, moderate F33.1 [place] [address] [place] [id number] [address] [place] [address] Sep, Grief F43.20 [place] [address] [place] [id number] [address] [place] [address] Aug, Major depressive disorder, r ecurrent episode, moderate F33.1 [place] [address] [place] [id number] [address] [place] [address] Aug, Bipolar 1 disorder, mixed F3 1.60 [place] [address] [facility] [id number] [address] [place] [address] Aug, Allergic rhinitis J30.9 ; Ce rvicalgia M54.2 and Low back pain M54.5 [place] [address] [place] [id number] [address] [place] [address] Aug, Major depressive disorder, r ecurrent episode, moderate F33.1 [facility] [address] [place] [id number] [address] [place] [address] Aug, Sinusitis J32.9 and Tobacco 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 [facility] [address] [facility] [id number] [address] [place] [address] Aug, [facility] [address] [place] [id number] [address] [place] [address] Aug, Depressive disorder, not els ewhere classified F32.9 ; Hormone replacement therapy Z79.[address] scan, head R93.0 [facility] [address] [facility] [id number] [address] [place] [address] Aug, Major depressive disorder, r ecurrent episode, moderate F33.1 [facility] [address] [facility] [id number] [address] [place] [address] Jul, Major depressive disorder, r ecurrent episode, moderate F33.1 [facility] [address] [place] [id number] [address] [place] [address] Jul, Abdominal pain R10.9 and Hyp ertension I10 [facility] [address] [facility] [id number] [address] [place] [address] Jul, [facility] [address] [place] [id number] [address] [place] [address] Jul, Major depressive disorder, r ecurrent episode, moderate F33.1 [facility] [address] [place] [id number] [address] [place] [address] Jul, [facility] [address] [facility] [id number] [address] [place] [address] Jul, [facility] [address] [facility] [id number] [address] [place] [address] Jun, [facility] [address] [place] [id number] [address] [place] [address] Jun, Depressive disorder, not els ewhere classified F32.9 [facility] [address] [place] [id number] [address] [place] [address] Jun, [facility] [address] [id number] [address] [place] [address] Jun, [facility] [address] [id number] [address] [place] [address] Jun, Arthralgia of hip, unspecifi ed laterality M25.559 ; Bruising, spontaneous R23.3 and Night sweats R61 [facility] [address] [id number] [address] [place] [address] Jun, [facility] [address] [id number] [address] [place] [address] Jun, [facility] [address] [facility] [id number] [address] [place] [address] May, [facility] [address] [facility] [id number] [address] [place] [address] May, Myalgia M79.1 and Screening, lipid Z13.220 [facility] [address] [facility] [id number] [address] [place] [address] Apr, Status post cervical spinal fusion Z98.1 ; Fibromyalgia M79.7 and Unsteady gait R26.81 [facility] [address] [facility] [id number] [address] [place] [address] Nov, [facility] [address] [facility] [id number] [address] [place] [address] Nov, [facility] [address] [id number] [address] [place] [address] October, [facility] [address] [facility] [id number] [address] [place] [address] October, [facility] [address] [facility] [id number] [address] [place] [address] October, [facility] [address] [facility] [id number] [address] [place] [address] October, [facility] [address] [id number] [address] [place] [address] October, [facility] [address] [id number] [address] [place] [address] October, Dysuria 788.1 ; Nausea 787.0 2 and Urinary tract infection 599.0 [facility] [address] [id number] [address] [place] [address], [place] [id number] Sep, [facility] [address] [id number] [address] [place] [address] Sep, [facility] [address] [id number] [address] [place] [address] Aug, [facility] [address] [id number] [address] [place] [address] Aug, [facility] [address] [id number] [address] [place] [address] Aug, [facility] [address] [id number] [address] [place] [address] Aug, [facility] [address] [id number] [address] [place] [address], [place] [id number] Aug, [facility] [address] [id number] [address] [place] [address] Aug, [facility] [address] [id number] [address] [place] [address], [place] [id number] Aug, [facility] [address] [id number] [address] [place] [address] Aug, [facility] [address] [id number] [address] [place] [address] Aug, [facility] [address] [id number] [address] [place] [address] Aug, [facility] [address] [id number] [address] [place] [address] Aug, [facility] [address] [id number] [facility] [id number] 13 Aug, 2014 [facility] [address] [id number] [address] [place] [address], [place] [id number] 13 Aug, 2014 [facility] [address] [id number] [address] [place] [address], [place] [id number] Aug, [facility] [address] [id number] [address] [place] [address], [place] [id number] 11 Aug, 2014 [facility] [address] [id number] [address] [place] [address], [place] [id number] 06 Aug, 2014 [facility] [address] [id number] [address] [place] [address], [place] [id number] 06 Aug, 2014 [facility] [address] [id number] [address] [place] [address], [place] [id number] 05 Aug, 2014 [facility] [address] [id number] [address] [place] [address], [place] [id number] 05 Aug, 2014 [facility] [address] [id number] [address] [place] [address], [place] [id number] Aug, [facility] [address] [id number] [address] [place] [address], [place] [id number] Aug, [facility] [address] [id number] [address] [place] [address], [place] [id number] Aug, [facility] [address] [id number] [address] [place] [address], [place] [id number] Jul, 2014 [facility] [address] [id number] [address] [place] [address], [place] [id number] Jul, [facility] [address] [id number] [address] [place] [address], [place] [id number] Jul, [facility] [address] [id number] [address] [place] [address], [place] [id number] Jul, [facility] [address] [id number] [address] [place] [address], [place] [id number] Jul, 2014 [facility] [address] [id number] [address] [place] [address], [place] [id number] Jul, 2014 [facility] [address] [id number] [address] [place] [address], [place] [id number] Jul, 2014 [facility] [address] [id number] [address] [place] [address], [place] [id number] Jul, 2014 [facility] [address] [id number] [address] [place] [address], [place] [id number] Jul, 2014 [facility] [address] [id number] [address] [place] [address], [place] [id number] Jul, 2014 [facility] [address] [id number] [address] [place] [address], [place] [id number] Jul, 2014 [facility] [address] [id number] [address] [place] [address], [place] [id number] Jul, 2014 [facility] [address] [id number] [address] [place] [address], [place] [id number] Jul, [facility] [address] [id number] [address] [place] [address], [place] [id number] Jul, [facility] [address] [id number] [address] [place] [address], [place] [id number] Jun, [facility] [address] [id number] [address] [place] [address], [place] [id number] Jun, [facility] [address] [id number] [address] [place] [id number] Jun, [facility] [address] [id number] [address] [place] [address], [place] [id number] Jun, [facility] [address] [id number] [address] [place] [address], [place] [id number] Jun, [facility] [address] [id number] [address] [place] [address] Jun, [facility] [address] [id number] [address] [place] [address], [place] [id number] May, [facility] [address] [id number] [address] [place] [address], [place] [id number] May, [facility] [address] [id number] [address] [place] [address], [place] [id number] May, [facility] [address] [id number] [address] [place] [address], [place] [id number] May, [facility] [address] [id number] [address] [place] [address], [place] [id number] May, [facility] [address] [id number] [address] [place] [address], [place] [id number] May, [facility] [address] [id number] [address] [place] [address], [place] [id number] Apr, [facility] [address] [id number] [address] [place] [address], [place] [id number] Apr, [facility] [address] [id number] [address] [place] [address], [place] [id number] Apr, [facility] [address] [id number] [address] [place] [address], [place] [id number] Apr, [facility] [address] [id number] [address] [place] [address], [place] [id number] Apr, [facility] [address] [id number] [address] [place] [address], [place] [id number] Apr, [facility] [address] [id number] [address] [place] [address], [place] [id number] Mar, [facility] [address] [id number] [address] [place] [address], [place] [id number] Mar, [facility] [address] [id number] [address] [place] [address], [place] [id number] Mar, [facility] [address] [id number] [address] [place] [address] [place] [id number] 09 Mar, 2013 [facility] [address] [id number] [address] [place] [address], [place] [id number] 07 Mar, 2013 [facility] [address] [id number] [address] [place] [address], [place] [id number] Mar, 2013 [facility] [address] [id number] [address] [place] [address], [place] [id number] Mar, 2013 [facility] [address] [id number] [address] [place] [address], [place] [id number] Mar, 2013 [facility] [address] [id number] [address] [place] [address], [place] [id number] Mar, 2013 [facility] [address] [id number] [address] [place] [address], [place] [id number] Mar, 2013 [facility] [address] [id number] [address] [place] [address], [place] [id number] Mar, 2013 [facility] [address] [id number] [address] [place] [address], [place] [id number] Mar, 2013 [facility] [address] [id number] [address] [place] [address], [place] [id number] 30 Sep, 2013 [facility] [address] [id number] [address] [place] [address], [place] [id number] 29 Sep, 2013 [facility] [address] [id number] [address] [place] [address], [place] [id number] 29 Sep, 2013 [facility] [address] [id number] [address] [place] [address], [place] [id number] 23 Sep, 2013 [facility] [address] [id number] [address] [place] [address], [place] [id number] 23 Sep, 2013 [facility] [address] [id number] [address] [place] [address], [place] [id number] 08 Sep, 2013 [facility] [address] [id number] [address] [place] [address], [place] [id number] 08 Sep, 2013 [facility] [address] [id number] [facility] [id number] Jan, [facility] [address] [id number] [facility] [id number] Jan, [facility] [address] [id number] [address] [place] [address], [place] [id number] Jan, [facility] [address] [id number] [address] [place] [address], [place] [id number] Dec, [facility] [address] [id number] [address] [place] [address], [place] [id number] Dec, [facility] [address] [id number] [address] [place] [address], [place] [id number] Dec, [facility] [address] [id number] [address] [place] [address], [place] [id number] Dec, [facility] [address] [id number] [address] [place] [address], [place] [id number] Sep, [facility] [address] [id number] [address] [place] [address], [place] [id number] Sep, [facility] [address] [id number] [address] [place] [address], [place] [id number] Sep, [facility] [address] [id number] [address] [place] [address], [place] [id number] Sep, [facility] [address] [id number] [address] [place] [address], [place] [id number] Sep, [facility] [address] [id number] [address] [place] [address], [place] [id number] Sep, [facility] [address] [id number] [address] [place] [address], [place] [id number] Sep, [facility] [address] [id number] [address] [place] [address], [place] [id number] Sep, [facility] [address] [id number] [address] [place] [address], [place] [id number] Aug, [facility] [address] [id number] [address] [place] [address], [place] [id number] Aug, [facility] [address] [id number] [address] [place] [address], [place] [id number] May, [facility] [address] [id number] [address] [place] [address], [place] [id number] May, [facility] [address] [id number] [address] [place] [address], [place] [id number] Apr, [facility] [address] [id number] [address] [place] [address], [place] [id number] Apr, [facility] [address] [id number] [address] [place] [address], [place] [id number] Apr, [facility] [address] [id number] [address] [place] [address], [place] [id number] Apr, [facility] [address] [id number] [address] [place] [address], [place] [id number] Apr, [facility] [address] [id number] [address] [place] [address], [place] [id number] Apr, [facility] [address] [id number] [address] [place] [address], [place] [id number] May, [facility] [address] [id number] [address] [place] [address], [place] [id number] 18 May, 2012 [facility] [address] [id number] [address] [place] [address], [place] [id number] 15 May, 2012 [facility] [address] [id number] [address] [place] [address], [place] [id number] 15 May, 2012 [facility] [address] [id number] [address] [place] [address], [place] [id number] 13 May, 2012 [facility] [address] [id number] [address] [place] [address], [place] [id number] 13 May, 2012 [facility] [address] [id number] [address] [place] [address], [place] [id number] 13 Apr, 2012 [facility] [address] [id number] [address] [place] [address], [place] [id number] 13 Apr, 2012 [facility] [address] [id number] [address] [place] [address], [place] [id number] 08 Apr, 2012 [facility] [address] [id number] [address] [place] [address], [place] [id number] 08 Apr, 2012 [facility] [address] [id number] [address] [place] [address], [place] [id number] 08 Apr, 2012 [facility] [address] [id number] [address] [place] [address], [place] [id number] Apr, [facility] [address] [id number] [address] [place] [address], [place] [id number] Apr, [facility] [address] [id number] [address] [place] [address], [place] [id number] Apr, [facility] [address] [id number] [address] [place] [address], [place] [id number] Apr, [facility] [address] [id number] [address] [place] [address], [place] [id number] Apr, [facility] [address] [id number] [address] [place] [address], [place] [id number] Mar, [facility] [address] [id number] [address] [place] [address], [place] [id number] Mar, [facility] [address] [id number] [address] [place] [address], [place] [id number] Mar, [facility] [address] [id number] [address] [place] [address], [place] [id number] Mar, [facility] [address] [id number] [address] [place] [address], [place] [id number] Mar, [facility] [address] [id number] [address] [place] [address], [place] [id number] Mar, [facility] [address] [id number] [address] [place] [address], [place] [id number] Mar, [facility] [address] [id number] [address] [place] [address], [place] [id number] Mar, [facility] [address] [id number] [address] [place] [address], [place] [id number] Mar, [facility] [address] [id number] [address] [place] [address], [place] [id number] Feb, [facility] [address] [id number] [address] [place] [address], [place] [id number] 16 Feb, 2012 [facility] [address] [id number] [address] [place] [address], [place] [id number] Feb, [facility] [address] [id number] [address] [place] [address], [place] [id number] Jan, [facility] [address] [id number] [address] [place] [address], [place] [id number] Jan, [facility] [address] [id number] [address] [place] [address], [place] [id number] Jan, [facility] [address] [id number] [address] [place] [address], [place] [id number] Jan, [facility] [address] [id number] [address] [place] [address], [place] [id number] Jan, [facility] [address] [id number] [address] [place] [address], [place] [id number] Jan, [facility] [address] [id number] [address] [place] [address], [place] [id number] 16 Jan, 2012 [facility] [address] [id number] [address] [place] [address], [place] [id number] Jan, [facility] [address] [id number] [address] [place] [address], [place] [id number] Jan, [facility] [address] [id number] [address] [place] [address], [place] [id number] Jan, [facility] [address] [id number] [address] [place] [address], [place] [id number] Dec, [facility] [address] [id number] [address] [place] [address], [place] [id number] Dec, [facility] [address] [id number] [address] [place] [address], [place] [id number] Dec, [facility] [address] [id number] [address] [place] [address], [place] [id number] Dec, [facility] [address] [id number] [address] [place] [address], [place] [id number] Nov, [facility] [address] [id number] [address] [place] [address], [place] [id number] Nov, [facility] [address] [id number] [address] [place] [address], [place] [id number] Nov, [facility] [address] [id number] [address] [place] [address], [place] [id number] October, [facility] [address] [id number] [address] [place] [address], [place] [id number] October, [facility] [address] [id number] [address] [place] [address], [place] [id number] October, [facility] [address] [id number] [address] [place] [address], [place] [id number] October, [facility] [address] [id number] [address] [place] [address], [place] [id number] October, [facility] [address] [id number] [address] [place] [address], [place] [id number] October, [facility] [address] [id number] [address] [place] [address], [place] [id number] Aug, [facility] [address] [id number] [address] [place] [address], [place] [id number] Mar, [facility] [address] [id number] [address] [place] [id number] Nov, [facility] [address] [facility] [id number] [address] [place] [id number] May, [facility] [address] [facility] [id number] [address] [place] [id number] May, [facility] [address] [facility] [id number] [address] [place] [id number] Apr, [facility] [address] [facility] [id number] [address] [place] [id number] Mar, [facility] [address] [facility] [id number] [address] [place] [id number] Mar, IMMUNIZATIONS No Known Immunizations SOCIAL HISTORY Never Assessed REASON FOR VISIT Fibromyalgia WB-MA, PT is expressing allergy concerns, PT wants a f/u to her dep ression, PT received an epidural in the L4 and L5 on 10/26/17 PLAN OF CARE Activity Details Follow Up 4 Weeks Reason:fibromyalgia VITAL SIGNS Height 64 in 2017-11-21 Weight 164 lbs 2017-11-21 Temperature 98.8 degrees Fahrenheit 2017-11-21 Heart Rate 92 bpm 2017-11-21 Respiratory Rate 20 2017-11-21 BMI 28.15 kg/m2 2017-11-21 Blood pressure systolic 120 mmHg 2017-11-21 Blood pressure diastolic 72 mmHg 2017-11-21 MEDICATIONS Medication Instructions Dosage Frequency Start Date End Date Duration S tatus Myrbetriq 50 MG Orally Once a day 1 tablet 24h Not-Taking C69-Yezrts 1 MG Active Baclofen 20 mg Orally 2 times a day 1 tablet with food or milk 12h October, 13 Feb, 2018 30 days Active Vitamin D3 2000 UNIT Orally Once a day as directed 24h Dec, Active Orally Once a day 1 capsule 24h Act mitchell Gabapentin 100 mg Orally 3 times a day 1 capsule 8h 07 Jul, 2017 Active Nitrofurantoin Monohyd Macro 100 mg Orally Once a day 1 capsule with food 24h Active Lidocaine-Prilocaine 2.5-2.5 % Active Ibuprofen 600 MG Orally 4 times a day 1 tablet with food or milk as needed 6h Sep, Jan, 30 days Active Mucinex 600 MG Orally every 12 hrs 1 tablet as needed 12h Active Fetzima 120 mg Orally Once a day TAKE 1 CAPSULE BY MOUTH DAILY 24h 30 days Active Pantoprazole Sodium 20 MG TAKE 1 TABLET BY MOUTH ONCE DAILY 90 Active Vagifem 10 MCG Vaginal Two times a Week 1 tablet 84 Active Montelukast Sodium 10 mg Orally Once a day 1 tablet in the evening 24h October, 90 days Active Beclomethasone Dipropionate 80 MCG/ACT Nasally Once a day 2 puffs in each nostril 24h Sep, 30 day(s) Active Magnesium 500 MG Orally Once a day 1 tablet with a meal 24h Dec, Active Depakote ER 500 mg Orally at bedtime 2 tabs 30 days Active Lyrica 50 mg Orally Twice a day 1 capsule 12h Nov, Active Oxybutynin Chloride ER 10 MG Orally Once a day 1 tablet 24h October, 30 day(s) Active HydrOXYzine HCl 10 mg Orally BID prn anxiety, MAX 45 tabs monthly 1 t ablet 30 days Active Probiotic Acidophilus Ac tive Estradiol 2 MG Orally Once a day 1 tablet 24h Active Flunisolide 25 MCG/ACT (0.025%) Nasally Twice a day 2 sprays in each nostril 12h Sep, 30 day(s) Active Voltaren 1 % Transdermal 4 times a day on neck Active Melatonin 5 mg Orally Once a day 2 tablets 24h May, Active Cetirizine HCl 10 mg Orally Once a day 1 tablet 24h 31 Jan, 201 7 Jan, 90 days Active RESULTS No Results PROCEDURES Procedure Date Ordered Result Body Site [facility] VISIT ESTABLISHED PATIENT November 21, 2017 [facility] Visit needs to be added with another visit on the same day November 21, 2017 INSTRUCTIONS MEDICATIONS ADMINISTERED No Known Medications [...]
--- OUTSIDE RECORDS SUMMARY | 2019-06-19 05:32 | XMS REPORT ---
Author Author Sydnie HANCOCK [facility] Address [address] [place] [address] Care Team Providers Care Ways Operator Name Role Phone NAHOMY HANCOCK Unavailable PROBLEMS Type Condition ICD9-CM Code [id number] Code Onset Dates Condition S tatus SNOMED Code Problem Hormone replacement therapy Z79.890 Ac tive 486116489 Problem Abnormal CT scan, head R93.0 Active 473889651 Problem Sensorineural hearing loss (SNHL) of both ears H90 .3 Active 383300553 Problem History of colon polyps Z86.010 Active 275966287 Problem Bruising, spontaneous R23.3 Active 330764169 Problem Generalized anxiety disorder F41.1 A ctive 96556357 Problem Arthralgia of hip, unspecified laterality M25.559 Active 41849033 Problem Hematuria, unspecified type R31.9 Ac tive 92241316 Problem Imbalance R26.89 Active 815791769 Problem Hammer toe of right foot M20.41 Activ e 497374733 Problem Plantar wart of right foot B07.0 Act mitchell [id number] Problem Sciatica of left side M54.32 Active 35352763 Problem Hyperlipidemia, unspecified hyperlipidemia type E7 8.5 Active 45373077 Problem Hypertension I10 Active 3846504 3 Problem Night sweats R61 Active 9236261 0 Problem Fibromyalgia M79.7 Active 7710223 7 Problem Major depressive disorder, recurrent episode, moderate F33.1 Active 439791536 Problem Acute left-sided low back pain with left-sided sciatica M54.42 Active 401580168 Problem Bladder spasm N32.89 Active 493397 006 Problem Gastritis without bleeding, unspecified chronicity, unspecified gastritis type K29.70 Active 716329894 Problem Bipolar 1 disorder, mixed F31.60 Acti ve 74011146 Problem Grief F43.20 Active 55969834 Problem Other chronic pain G89.29 Active 8 6251215 Problem Allergic rhinitis J30.9 Active 61 287224 Problem Hot flashes due to menopause N95.1 A ctive 574599856 Problem Ataxia R27.0 Active 81814578 Problem Hearing loss, unspecified laterality H91.90 Active 12425029 ALLERGIES No Information ENCOUNTERS Encounter Location Date Diagnosis [facility] [place] [address] [facility] [id number] [address] [place] [phone] Mar, [facility] [place] [address] [facility] [id number] [address] [place] [phone] Feb, [facility] [place] [address] [facility] [id number] [address] [place] [phone] Feb, [facility] [place] [address] [facility] [id number] [address] [place] [phone] Jan, [facility] [place] [address] [place] [id number] [address] [place] [phone] Jan, [facility] [place] [address] [facility] [id number] [address] [place] [phone] Jan, Bipolar 1 disorder, mixed F3 1.60 [place] [address] [facility] [id number] [address] [place] [phone] Jan, Bipolar 1 disorder, mixed F3 1.60 [place] [address] [facility] [id number] [address] [place] [phone] Jan, Bipolar 1 disorder, mixed F3 1.60 [facility] [place] [address] [facility] [id number] [address] [place] [id number] Jan, Bipolar 1 disorder, mixed F3 1.60 [facility] [place] [address] [facility] [id number] [address] [place] [id number] Dec, Bipolar 1 disorder, mixed F3 1.60 ; Generalized anxiety disorder F41.1 and 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 [facility] [place] [address] [facility] [id number] [address] [place] [id number] Dec, Other moth exterminator (current) dr bin therapy Z79.899 [facility] [place] [address] [facility] [id number] [address] [place] [phone] Dec, Bipolar 1 disorder, mixed F3 1.60 [facility] [place] [address] [facility] [id number] [address] [place] [id number] Dec, Bipolar 1 disorder, mixed F3 1.60 [facility] [place] [address] [facility] [id number] [address] [place] [id number] Nov, Bipolar 1 disorder, mixed F3 1.60 [facility] [place] [address] [facility] [id number] [address] [place] [id number] Nov, Bipolar 1 disorder, mixed F3 1.60 [facility] [place] [address] [facility] [id number] [address] [place] [id number] Nov, Bipolar 1 disorder, mixed F3 1.60 [facility] [place] [address] [facility] [id number] [address] [place] [id number] Nov, Allergic rhinitis J30.9 [facility] [place] [address] [facility] [id number] [address] [place] [id number] Nov, Allergic rhinitis J30.9 [facility] [place] [address] [facility] [id number] [address] [place] [id number] Nov, [facility] [place] [address] [facility] [id number] [address] [place] [id number] Nov, Bipolar 1 disorder, mixed F3 1.60 [facility] [place] [address] [facility] [id number] [address] [place] [phone] Nov, Fibromyalgia M79.7 and Aller gic rhinitis J30.9 [facility] [place] [address] [facility] [id number] [address] [place] [id number] October, Bipolar 1 disorder, mixed F3 1.60 [facility] [address] [facility] [id number] [address] [place] [phone] October, Acute nasopharyngitis J00 [facility] [address] [facility] [id number] [address] [place] [id number] October, Bitten or stung by nonvenomo us insect and other nonvenomous arthropods, initial encounter W57.XXXA and Insect bite (nonvenomous) of abdominal wall, initial encounter S30.861A [facility] [place] [address] [id number] [address] [place] [phone] October, Insect bite (nonvenomous) of abdominal wall, initial encounter S30.861A ; Bitten or stung by nonvenomous insect and other nonvenomous arthropods, initial encounter W57.XXXA ; Allergic rhinitis J30.9 and Low back pain M54.5 [facility] [place] [address] [id number] [address] [place] [id number] October, Bipolar 1 disorder, mixed F3 1.60 [facility] [place] [address] [facility] [id number] [address] [place] [id number] October, [facility] [place] [address] [facility] [id number] [address] [place] [phone] October, [facility] [place] [address] [id number] [address] [place] [phone] October, Bipolar 1 disorder, mixed F3 1.60 [facility] [place] [address] [facility] [id number] [address] [place] [id number] Sep, Bipolar 1 disorder, mixed F3 1.60 [facility] [place] [address] [id number] [address] [place] [id number] Sep, Other chronic pain G89.29 [facility] [place] [address] [id number] [address] [place] [phone] Sep, [facility] [place] [address] [facility] [id number] [address] [place] [id number] Sep, Bipolar 1 disorder, mixed F3 1.60 [facility] [place] [address] [facility] [id number] [address] [place] [phone] Sep, Allergic rhinitis J30.9 and Sciatica of left side M54.32 [facility] [place] [address] [facility] [id number] [address] [place] [id number] Sep, Bipolar 1 disorder, mixed F3 1.60 [facility] [place] [address] [facility] [id number] [address] [place] [phone] Sep, Bipolar 1 disorder, mixed F3 1.60 and Generalized anxiety disorder F41.1 [facility] [place] [address] [facility] [id number] [address] [place] [id number] Aug, [facility] [place] [address] [id number] [address] [place] [phone] Aug, Bipolar 1 disorder, mixed F3 1.60 [facility] [place] [address] [facility] [id number] [address] [place] [phone] Aug, Bipolar 1 disorder, mixed F3 1.60 [facility] [place] [address] [facility] [id number] [address] [place] [phone] Aug, [facility] [place] [address] [facility] [id number] [address] [place] [id number] Aug, Generalized anxiety disorder F41.1 [facility] [place] [address] [facility] [id number] [address] [place] [phone] Aug, Bipolar 1 disorder, mixed F3 1.60 [facility] [place] [address] [facility] [id number] [address] [place] [phone] Aug, Plantar wart of right foot B 07.0 [facility] [place] [address] [facility] [id number] [address] [place] [phone] Aug, Bipolar 1 disorder, mixed F3 1.60 [facility] [place] [address] [facility] [id number] [address] [place] [phone] Jul, Bipolar 1 disorder, mixed F3 1.60 [facility] [place] [address] [facility] [id number] [address] [place] [phone] Jul, [facility] [place] [address] [facility] [id number] [address] [place] [id number] 14 Jul, 2017 Bipolar 1 disorder, mixed F3 1.60 [facility] [place] [address] [facility] [id number] [address] [place] [id number] 09 Jul, 2017 Generalized anxiety disorder F41.1 [facility] [place] [address] [place] [id number] [address] [place] [id number] 07 Jul, 2017 Bipolar 1 disorder, mixed F3 1.60 [facility] [place] [address] [place] [id number] [address] [place] [phone] Jul, Acute left-sided low back pa in with left-sided sciatica M54.42 [facility] [place] [address] [place] [id number] [place] [phone] Jul, Coccydynia M53.3 [facility] [place] [address] [place] [id number] [address] [place] [id number] Jun, Bipolar 1 disorder, mixed F3 1.60 [facility] [address] [place] [id number] [address] [place] [phone] Jun, Acute nasopharyngitis J00 [facility] [place] [address] [place] [id number] [address] [place] [phone] Jun, Bipolar 1 disorder, mixed F3 1.60 [facility] [place] [address] [place] [id number] [address] [place] [phone] Jun, Fibromyalgia M79.7 [facility] [place] [address] [place] [id number] [address] [place] [id number] Jun, Bipolar 1 disorder, mixed F3 1.60 [facility] [place] [address] [facility] [id number] [address] [place] [phone] Jun, Fibromyalgia M79.7 and Bipol ar 1 disorder, mixed F31.60 [facility] [place] [address] [facility] [id number] [address] [place] [phone] May, Bipolar 1 disorder, mixed F3 1.60 ; Generalized anxiety disorder F41.1 and 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 [facility] [place] [address] [place] [id number] [address] [place] [phone] May, Bipolar 1 disorder, mixed F3 1.60 [facility] [address] [place] [id number] [address] [place] [phone] 14 May, 2017 Cough R05 and Body aches R52 [facility] [address] [place] [id number] [address] [place] [id number] 10 May, 2017 Bladder spasm N32.89 and Acu te cystitis without hematuria N30.00 [place] [address] [phone] 07 May, 2017 Bipolar 1 disorder, mixed F3 1.60 [place] [address] [place] [id number] [place] [phone] 30 Apr, 2017 [place] [address] [id number] Apr, Major depressive disorder, r ecurrent episode, moderate F33.1 and Encounter for immunization Z23 [place] [address] [id number] Apr, Bipolar 1 disorder, mixed F3 1.60 [place] [address] [place] [id number] [address] [place] [phone] Apr, Bipolar 1 disorder, mixed F3 1.60 [place] [address] [place] [id number] [address] [place] [phone] 16 Apr, 2017 Bipolar 1 disorder, mixed F3 1.60 [place] [address] [place] [id number] [address] [place] [phone] 13 Apr, 2017 Yeast vaginitis B37.3 [place] [address] [place] [id number] [address] [place] [phone] 09 Apr, 2017 Bipolar 1 disorder, mixed F3 1.60 [facility] [address] [place] [id number] [address] [place] [phone] Apr, Cellulitis L03.[address] for immunization Z23 [facility] [place] [address] [facility] [id number] [address] [place], [place] [address] Apr, Bipolar 1 disorder, mixed F3 1.60 [facility] [place] [address] [facility] [id number] [address] [place] [address] Mar, Bipolar 1 disorder, mixed F3 1.60 [facility] [place] [address] [place] [id number] [address] [place] [id number] Mar, Bipolar 1 disorder, mixed F3 1.60 [place] [address] [place] [id number] [address] [place] [id number] Mar, Imbalance R26.89 and Encount er for immunization Z23 [facility] [place] [address] [place] [id number] [address] [place] [id number] Mar, Generalized anxiety disorder F41.1 [place] [address] [place] [id number] [address] [place] [address] Mar, Bipolar 1 disorder, mixed F3 1.60 [place] [address] [place] [id number] [address] [place] [id number] Mar, Generalized anxiety disorder F41.1 [facility] [place] [address] [place] [id number] [address] [place] [address] Mar, Bipolar 1 disorder, mixed F3 1.60 [facility] [place] [address] [place] [id number] [address] [place] [address] Mar, Bipolar 1 disorder, mixed F3 1.60 [facility] [place] [address] [place] [id number] [address] [place] [id number] Feb, Bipolar 1 disorder, mixed F3 1.60 [facility] [place] [address] [place] [id number] [address] [place] [address] Feb, Bipolar 1 disorder, mixed F3 1.60 and Generalized anxiety disorder F41.1 [facility] [place] [address] [place] [id number] [address] [place] [address] Feb, Gastritis without bleeding, unspecified chronicity, unspecified gastritis type K29.70 ; Hammer toe of right foot M20.41 and Other viral warts B07.8 [place] [address] [facility] [id number] [address] [place] [phone] Feb, Bipolar 1 disorder, mixed F3 1.60 [place] [address] [place] [id number] [address] [place] [phone] Feb, Bipolar 1 disorder, mixed F3 1.60 [place] [address] [facility] [id number] [address] [place] [phone] 05 Feb, 2017 Bipolar 1 disorder, mixed F3 1.60 [place] [address] [facility] [id number] [address] [place] [phone] Jan, Encounter for screening mamm ogram for breast cancer Z12.31 ; Other viral warts B07.8 and Allergic rhinitis J30.9 [place] [address] [facility] [id number] [address] [place] [phone] Jan, Bipolar 1 disorder, mixed F3 1.60 [place] [address] [facility] [id number] [address] [place] [phone] Jan, Bipolar 1 disorder, mixed F3 1.60 [place] [address] [facility] [id number] [address] [place] [phone] Jan, [place] [address] [facility] [id number] [address] [place] [phone] Jan, Bipolar 1 disorder, mixed F3 1.60 [place] [address] [facility] [id number] [address] [place] [phone] Jan, Bipolar 1 disorder, mixed F3 1.60 [place] [address] [facility] [id number] [address] [place] [id number] Jan, Allergic rhinitis J30.9 ; He maturia R31.9 and Colon cancer screening Z12.11 [place] [address] [facility] [id number] [address] [place] [phone] Dec, Bipolar 1 disorder, mixed F3 1.60 [facility] [place] [address] [id number] [address] [place] [id number] Dec, Bipolar 1 disorder, mixed F3 1.60 ; Generalized anxiety disorder F41.1 and Other fdc (current) drug therapy Z79.899 [facility] [place] [address] [facility] [id number] [address] [place] [id number] Dec, Bipolar 1 disorder, mixed F3 1.60 [facility] [place] [address] [id number] [address] [place] [id number] Dec, Bipolar 1 disorder, mixed F3 1.60 [facility] [place] [address] [facility] [id number] [address] [place] [phone] Dec, Bipolar 1 disorder, mixed F3 1.60 [facility] [place] [address] [facility] [id number] [address] [place] [phone] Dec, Low back pain M54.5 and Recu rrent urinary tract infection N39.0 [facility] [place] [address] [facility] [id number] [address] [place] [phone] Nov, Bipolar 1 disorder, mixed F3 1.60 [facility] [place] [address] [facility] [id number] [address] [place] [phone] Nov, Bipolar 1 disorder, mixed F3 1.60 [facility] [place] [address] [facility] [id number] [address] [place] [id number] Nov, Bipolar 1 disorder, mixed F3 1.60 [facility] [place] [address] [id number] [address] [place] [id number] Nov, Bipolar 1 disorder, mixed F3 1.60 [facility] [place] [address] [facility] [id number] [address] [place] [id number] Nov, [facility] [place] [address] [facility] [id number] [address] [place] [phone] Nov, Anesthesia of skin R20.0 ; F requent UTI N39.0 ; Tobacco abuse Z72.0 and Colon cancer screening Z12.11 [place] [address] [place] [id number] [address] [place] [id number] Nov, Bipolar 1 disorder, mixed F3 1.60 [place] [address] [facility] [id number] [address] [place], [place] [id number] October, Bipolar 1 disorder, mixed F3 1.60 [place] [address] [place] [id number] [address] [place] [id number] October, Bipolar 1 disorder, mixed F3 1.60 [place] [address] [place] [id number] [address] [place] [phone] October, Bipolar 1 disorder, mixed F3 1.60 [place] [address] [place] [id number] [address] [place] [id number] October, Bipolar 1 disorder, mixed F3 1.60 [place] [address] [place] [id number] [address] [place] [phone] October, Bipolar 1 disorder, mixed F3 1.60 [place] [address] [place] [id number] [address] [place] [phone] October, Cervicalgia M54.2 and Bipola r 1 disorder, mixed F31.60 [place] [address] [place] [id number] [address] [place] [phone] October, Hypertension I10 ; Hyperlipi demia, unspecified hyperlipidemia type E78.5 and Family history of thyroid disease Z83.49 [place] [address] [facility] [id number] [address] [place] [phone] October, [place] [address] [place] [id number] [address] [place] [id number] October, Hypertension I10 ; Hyperlipi demia, unspecified hyperlipidemia type E78.5 and Family history of thyroid problem Z83.49 [place] [address] [facility] [id number] [address] [place] [phone] October, Bipolar 1 disorder, mixed F3 1.60 [facility] [place] [address] [facility] [id number] [address] [place] [id number] Sep, Bipolar 1 disorder, mixed F3 1.60 [facility] [place] [address] [facility] [id number] [address] [place], [place] [id number] Sep, Bipolar 1 disorder, mixed F3 1.60 [facility] [place] [address] [facility] [id number] [address] [place] [phone] Sep, Bipolar 1 disorder, mixed F3 1.60 [facility] [place] [address] [facility] [id number] [address] [place] [phone] Sep, History of colon polyps Z86. 010 and Hematochezia K92.1 [facility] [place] [address] [facility] [id number] [address] [place] [phone] Sep, Major depressive disorder, r ecurrent episode, moderate F33.1 [place] [address] [facility] [id number] [address] [place] [phone] Sep, Bipolar 1 disorder, mixed F3 1.60 [facility] [place] [address] [facility] [id number] [address] [place] [id number] Aug, Hot flashes due to menopause N95.1 [facility] [place] [address] [facility] [id number] [address] [place] [id number] Aug, Bipolar 1 disorder, mixed F3 1.60 [facility] [place] [address] [facility] [id number] [address] [place] [phone] Aug, [facility] [place] [address] [facility] [id number] [address] [place] [phone] Aug, Bipolar 1 disorder, mixed F3 1.60 [facility] [place] [address] [facility] [id number] [address] [place] [id number] Aug, Bipolar 1 disorder, mixed F3 1.60 [facility] [place] [address] [facility] [id number] [address] [place] [id number] Aug, Hot flashes due to menopause N95.1 ; Cervicalgia M54.2 and Ataxia R27.0 [place] [address] [address] Jul, Bipolar 1 disorder, mixed F3 1.60 [place] [address] Jul, Bipolar 1 disorder, mixed F3 1.60 [place] [address] Jul, Bipolar 1 disorder, mixed F3 1.60 [place] [address] Jul, Bipolar 1 disorder, mixed F3 1.60 [place] [address] [address] Jul, Bipolar 1 disorder, mixed F3 1.60 [place] [address] [address] Jul, Cervicalgia M54.2 ; Tremor R 25.1 ; Hearing abnormally acute, unspecified laterality H93.239 ; Alopecia L65.9 ; Encounter for immunization Z23 and Family history of thyroid disease Z83.49 [place] [address] [address] Jul, Bipolar 1 disorder, mixed F3 1.60 [place] [address] [address] Jun, [place] [address] [address] Jun, Hearing disorder, unspecifie d laterality H93.299 [place] [address] [address] Jun, Bipolar 1 disorder, mixed F3 1.60 [place] [address] [address] Jun, Bipolar 1 disorder, mixed F3 1.60 [facility] [place] [address] [id number] [address] [place] [id number] Jun, Allergic rhinitis J30.9 [facility] [place] [address] [id number] [address] [place] [id number] Jun, Bipolar 1 disorder, mixed F3 1.60 [facility] [place] [address] [id number] [address] [place] [id number] Jun, Bipolar 1 disorder, mixed F3 1.60 [facility] [place] [address] [id number] [address] [place] [id number] Jun, Allergic rhinitis J30.9 [facility] [place] [address] [id number] [address] [place] [id number] Jun, Allergic rhinitis J30.9 [facility] [place] [address] [facility] [id number] [address] [place] [id number] Jun, Bipolar 1 disorder, mixed F3 1.60 [facility] [place] [address] [id number] [address] [place] [phone] May, Bipolar 1 disorder, mixed F3 1.60 [facility] [place] [address] [id number] [address] [place] [id number] May, Bipolar 1 disorder, mixed F3 1.60 [facility] [place] [address] [facility] [id number] [address] [place] [id number] May, [facility] [place] [address] [facility] [id number] [address] [place] [id number] May, Bipolar 1 disorder, mixed F3 1.60 [facility] [place] [address] [id number] [address] [place] [phone] May, Bipolar 1 disorder, mixed F3 1.60 [facility] [place] [address] [facility] [id number] [address] [place] [id number] May, [facility] [place] [address] [facility] [id number] [address] [place] [id number] May, [facility] [place] [address] [facility] [id number] [address] [place] [phone] May, [facility] [place] [address] [facility] [id number] [address] [place] [phone] May, Abdominal pain, unspecified location R10.9 [facility] [place] [address] [place] [id number] [address] [place] [id number] May, [facility] [place] [address] [place] [id number] [address] [place] [id number] Apr, Hematuria R31.9 ; Ataxia R27 .0 and Hearing loss, unspecified laterality H91.90 [facility] [place] [address] [facility] [id number] [address] [place] [id number] Apr, Bipolar 1 disorder, mixed F3 1.60 [facility] [address] [facility] [id number] [address] [place] [id number] Apr, Acute effusion of both middl e ears H65.193 [facility] [place] [address] [facility] [id number] [address] [place] [id number] Apr, Hematuria R31.9 and Pyelonep hritis N12 [facility] [place] [address] [facility] [id number] [address] [place] [phone] Apr, [facility] [place] [address] [place] [id number] [address] [place] [id number] Mar, Bipolar 1 disorder, mixed F3 1.60 [facility] [place] [address] [place] [id number] [address] [place] [id number] Mar, [facility] [place] [address] [facility] [id number] [address] [place] [id number] Mar, Bipolar 1 disorder, mixed F3 1.60 [facility] [place] [address] [facility] [id number] [address] [place] [id number] Mar, Bipolar 1 disorder, mixed F3 1.60 [facility] [place] [address] [place] [id number] [address] [place] [id number] Mar, Encounter for immunization Z 23 and Gastritis without bleeding, unspecified chronicity, unspecified gastritis type K29.70 [place] [address] [place] [address] Mar, Bipolar 1 disorder, mixed F3 1.60 and Grief F43.20 [place] [address] Mar, Gastritis without bleeding, unspecified chronicity, unspecified gastritis type K29.70 [place] [address] Mar, Bipolar 1 disorder, mixed F3 1.60 [place] [address] Mar, Gastritis without bleeding, unspecified chronicity, unspecified gastritis type K29.70 [place] [address] [place] [address] Mar, [place] [address] [place] [id number] 27 Feb, 2016 Bipolar 1 disorder, mixed F3 1.60 [place] [address] [place] [id number] 22 Feb, 2016 Bipolar 1 disorder, mixed F3 1.60 and Grief F43.20 [place] [address] [place] 15[address]82[address] Feb, Gastritis without bleeding, unspecified chronicity, unspecified gastritis type K29.70 [place] [address] [place] [id number] [address] [place] [id number] 14 Feb, 2016 Bipolar 1 disorder, mixed F3 1.60 [facility] [address] [place] [id number] [place] [address] 09 Feb, 2016 Gastroesophageal reflux dise ase, esophagitis presence not specified K21.9 [place] [address] [address] Jan, Bipolar 1 disorder, mixed F3 1.60 [facility] [place] [address] [facility] [id number] [address] [place] [id number] Jan, Bipolar 1 disorder, mixed F3 1.60 and Unsteady gait R26.81 [facility] [place] [address] [place] [id number] [address] [place] [address] Jan, Bipolar 1 disorder, mixed F3 1.60 [facility] [place] [address] [place] [id number] [address] [place], [place] [address] Jan, Bipolar 1 disorder, mixed F3 1.60 and 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 [place] [address] [place] [id number] [place] [address] Jan, Bipolar 1 disorder, mixed F3 1.60 [place] [address] [place] [id number] [address] [place] [id number] Jan, Bipolar 1 disorder, mixed F3 1.60 [place] [address] [place] [id number] [address] [place] [id number] Jan, Bipolar 1 disorder, mixed F3 1.60 ; Grief F43.20 and Other fdc (current) drug therapy Z79.899 [place] [address] [place] [id number] [address] [place] [address] Jan, Bipolar 1 disorder, mixed F3 1.60 [place] [address] [place] [id number] [address] [place] [id number] Dec, [place] [address] [place] [id number] [address] [place] [id number] Dec, Bipolar 1 disorder, mixed F3 1.60 ; Vitamin D deficiency, unspecified E55.9 ; H/O allergic rhinitis Z87.09 ; Other chronic pain G89.29 and Dorsalgia, unspecified M54.9 [facility] [place] [address] [place] [id number] [address] [place] [id number] Dec, [place] [address] [id number] [address] [place] [id number] Dec, Bipolar 1 disorder, mixed F3 1.60 [facility] [place] [address] [facility] [id number] [address] [place] [phone] Dec, Major depressive disorder, r ecurrent episode, moderate F33.1 [facility] [place] [address] [facility] [id number] [address] [place] [id number] Dec, Major depressive disorder, r ecurrent episode, moderate F33.1 [place] [address] [facility] [id number] [address] [place] [address] Nov, [place] [address] [facility] [id number] [address] [place] [address] Nov, Bipolar 1 disorder, mixed F3 1.60 [place] [address] [facility] [id number] [address] [place] [phone] Nov, Major depressive disorder, r ecurrent episode, moderate F33.1 [place] [address] [facility] [id number] [address] [place] [address] Nov, Cervicalgia M54.2 ; Arthralg ia of hip, unspecified laterality M25.559 ; Allergic rhinitis J30.9 and Hormone replacement therapy Z79.890 [facility] [address] [facility] [id number] [address] [place] [id number] Nov, Other seasonal allergic rhin itis J30.2 [facility] [place] [address] [facility] [id number] [address] [place] [address] October, Major depressive disorder, r ecurrent episode, moderate F33.1 [facility] [place] [address] [facility] [id number] [address] [place] [address] October, Major depressive disorder, r ecurrent episode, moderate F33.1 and Arthralgia of hip, unspecified laterality M25.559 [place] [address] [facility] [id number] [address] [place] [address] October, Grief F43.20 ; Hypertension I10 ; Hyperlipidemia, unspecified hyperlipidemia type E78.5 ; Other chronic pain G89.29 and Allergic rhinitis, unspecified allergic rhinitis type J30.9 [place] [address] [facility] [id number] [address] [place] [id number] October, Major depressive disorder, r ecurrent episode, moderate F33.1 [place] [address] [facility] [id number] [address] [place] [id number] Sep, Major depressive disorder, r ecurrent episode, moderate F33.1 [place] [address] [facility] [id number] [address] [place] [id number] Sep, [place] [address] [place] [id number] [place] [address] Sep, Major depressive disorder, r ecurrent episode, moderate F33.1 [place] [address] [place] [id number] [address] [place] [address] Sep, Grief F43.20 [place] [address] [place] [id number] [address] [place] [id number] Aug, Major depressive disorder, r ecurrent episode, moderate F33.1 [place] [address] [place] [id number] [address] [place] [address] Aug, Bipolar 1 disorder, mixed F3 1.60 [place] [id number] [place] [id number] Aug, Allergic rhinitis J30.9 ; Ce rvicalgia M54.2 and Low back pain M54.5 [facility] [place] [address] [place] [id number] [address] [place] [id number] Aug, Major depressive disorder, r ecurrent episode, moderate F33.1 [facility] [address] [place] [id number] [address] [place] [id number] Aug, Sinusitis J32.9 and Tobacco 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 [place] [address] [place] [id number] [address] [place] [id number] Aug, [facility] [place] [address] [id number] [address] [place] [id number] Aug, Depressive disorder, not els ewhere classified F32.9 ; Hormone replacement therapy Z79.[address] scan, head R93.0 [facility] [place] [address] [id number] [address] [place] [id number] Aug, Major depressive disorder, r ecurrent episode, moderate F33.1 [facility] [place] [address] [id number] [address] [place] [id number] Jul, Major depressive disorder, r ecurrent episode, moderate F33.1 [facility] [place] [address] [id number] [address] [place] [id number] Jul, Abdominal pain R10.9 and Hyp ertension I10 [facility] [place] [address] [id number] [address] [place] [id number] Jul, [facility] [place] [address] [id number] [address] [place] [id number] Jul, Major depressive disorder, r ecurrent episode, moderate F33.1 [facility] [place] [address] [id number] [address] [place] [id number] Jul, [facility] [place] [address] [id number] [address] [place] [id number] Jul, [facility] [place] [address] [id number] [address] [place] [id number] Jun, [facility] [place] [address] [id number] [address] [place] [id number] Jun, Depressive disorder, not els ewhere classified F32.9 [facility] [place] [address] [id number] [address] [place] [id number] Jun, [facility] [place] [address] [facility] [id number] [address] [place] [id number] Jun, [facility] [place] [address] [id number] [address] [place] [id number] Jun, Arthralgia of hip, unspecifi ed laterality M25.559 ; Bruising, spontaneous R23.3 and Night sweats R61 [facility] [place] [address] [id number] [address] [place] [id number] Jun, [facility] [place] [address] [id number] [address] [place] [id number] Jun, [facility] [place] [address] [id number] [address] [place] [id number] May, [facility] [place] [address] [id number] [address] [place] [phone] May, Myalgia M79.1 and Screening, lipid Z13.220 [facility] [place] [address] [id number] [address] [place] [id number] Apr, Status post cervical spinal fusion Z98.1 ; Fibromyalgia M79.7 and Unsteady gait R26.81 [facility] [place] [address] [id number] [address] [place] [phone] Nov, [facility] [place] [address] [id number] [address] [place] [id number] Nov, [facility] [place] [address] [id number] [address] [place] [phone] October, [facility] [place] [address] [id number] [address] [place] [id number] October, [facility] [place] [address] [id number] [address] [place] [id number] October, [facility] [place] [address] [id number] [address] [place] [id number] October, [facility] [place] [address] [id number] [address] [place] [id number] October, [facility] [place] [address] [id number] [address] [place] [phone] October, Dysuria 788.1 ; Nausea 787.0 2 and Urinary tract infection 599.0 [facility] [address] [id number] [address] [place] [phone] 14 Sep, 2014 [facility] [address] [id number] [address] [place] [phone] Sep, [facility] [address] [id number] [address] [place] [id number] Aug, [facility] [address] [id number] [address] [place] [id number] Aug, [facility] [address] [id number] [address] [place] [phone] Aug, [facility] [address] [id number] [address] [place] [id number] Aug, [facility] [address] [id number] [address] [place] [id number] Aug, [facility] [address] [id number] [address] [place] [phone] Aug, [facility] [address] [id number] [address] [place] [id number] Aug, [facility] [address] [id number] [address] [place] [id number] 19 Aug, 2014 [facility] [address] [id number] [address] [place] [id number] 19 Aug, 2014 [facility] [address] [id number] [address] [place] [id number] 18 Aug, 2014 [facility] [address] [id number] [address] [place] [id number] 18 Aug, 2014 [facility] [address] [id number] [address] [place] [id number] 13 Aug, 2014 [facility] [address] [id number] [address] [place] [address], [place] [address] 13 Aug, 2014 [facility] [address] [id number] [address] [place] [address], [place] [address] 11 Aug, 2014 [facility] [address] [id number] [address] [place] [address], [place] [address] Aug, 2014 [facility] [address] [id number] [address] [place] [address], [place] [address] 06 Aug, 2014 [facility] [address] [id number] [address] [place] [address], [place] [address] 06 Aug, 2014 [facility] [address] [id number] [address] [place] [address], [place] [address] 05 Aug, 2014 [facility] [address] [id number] [address] [place] [address], [place] [address] 05 Aug, 2014 [facility] [address] [id number] [address] [place] [address], [place] [address] 04 Aug, 2014 [facility] [address] [id number] [address] [place] [address], [place] [address] Aug, [facility] [address] [id number] [address] [place] [address], [place] [address] Aug, [facility] [address] [id number] [address] [place] [address], [place] [address] Jul, 2014 [facility] [address] [id number] [address] [place] [address], [place] [address] Jul, 2014 [facility] [address] [id number] [address] [place] [address], [place] [address] Jul, 2014 [facility] [address] [id number] [address] [place] [address], [place] [address] Jul, 2014 [facility] [address] [id number] [address] [place] [address], [place] [address] Jul, 2014 [facility] [address] [id number] [address] [place] [address], [place] [address] Jul, [facility] [address] [id number] [address] [place] [address], [place] [address] Jul, 2014 [facility] [address] [id number] [address] [place] [address], [place] [address] Jul, 2014 [facility] [address] [id number] [address] [place] [address], [place] [address] Jul, 2014 [facility] [address] [id number] [address] [place] [address], [place] [address] Jul, 2014 [facility] [address] [id number] [address] [place] [address], [place] [address] Jul, 2014 [facility] [address] [id number] [address] [place] [address], [place] [address] Jul, 2014 [facility] [address] [id number] [address] [place] [address], [place] [address] Jul, [facility] [address] [id number] [address] [place] [address], [place] [address] Jul, [facility] [address] [id number] [address] [place] [address], [place] [address] Jun, [facility] [address] [id number] [address] [place] [address], [place] [address] Jun, [facility] [address] [id number] [address] [place] [address], [place] [address] Jun, [facility] [address] [id number] [address] [place] [address], [place] [address] Jun, [facility] [address] [id number] [address] [place] [address], [place] [address] Jun, [facility] [address] [id number] [address] [place] [address], [place] [address] Jun, [facility] [address] [id number] [address] [place] [address], [place] [address] May, [facility] [address] [id number] [address] [place] [address], [place] [address] May, [facility] [address] [id number] [address] [place] [address], [place] [address] May, [facility] [address] [id number] [address] [place] [address], [place] [address] May, [facility] [address] [id number] [address] [place] [address], [place] [address] May, [facility] [address] [id number] [address] [place] [address], [place] [address] May, [facility] [address] [id number] [address] [place] [address], [place] [address] Apr, [facility] [address] [id number] [address] [place] [address], [place] [address] Apr, [facility] [address] [id number] [address] [place] [address], [place] [address] Apr, [facility] [address] [id number] [address] [place] [address], [place] [address] Apr, [facility] [address] [id number] [address] [place] [address], [place] [address] Apr, [facility] [address] [id number] [address] [place] [address], [place] [address] Apr, [facility] [address] [id number] [address] [place] [address], [place] [address] Mar, [facility] [address] [id number] [address] [place] [address], [place] [address] Mar, [facility] [address] [id number] [address] [place] [address], [place] [address] Mar, [facility] [address] [id number] [address] [place] [address], [place] [address] Mar, [facility] [address] [id number] [address] [place] [address], [place] [address] Mar, [facility] [address] [id number] [address] [place] [address], [place] [address] Mar, [facility] [address] [id number] [address] [place] [address], [place] [address] Mar, [facility] [address] [id number] [address] [place] [address], [place] [address] Mar, [facility] [address] [id number] [address] [place] [address], [place] [address] Mar, [facility] [address] [id number] [address] [place] [address], [place] [address] Mar, [facility] [address] [id number] [address] [place] [address], [place] [address] Mar, [facility] [address] [id number] [address] [place] [address], [place] [address] Mar, [facility] [address] [id number] [address] [place] [address], [place] [address] 30 Feb, 2013 [facility] [address] [id number] [address] [place] [address], [place] [address] 29 Feb, 2013 [facility] [address] [id number] [address] [place] [address], [place] [address] 29 Feb, 2013 [facility] [address] [id number] [address] [place] [address], [place] [address] 23 Feb, 2013 [facility] [address] [id number] [address] [place] [address], [place] [address] 23 Feb, 2013 [facility] [address] [id number] [address] [place] [address], [place] [address] 08 Feb, 2013 [facility] [address] [id number] [address] [place] [address], [place] [address] 08 Feb, 2013 [facility] [address] [id number] [address] [place] [address], [place] [address] Jan, [facility] [address] [id number] [address] [place] [address], [place] [address] Jan, [facility] [address] [id number] [address] [place] [address], [place] [address] Jan, [facility] [address] [id number] [address] [place] [address], [place] [address] Dec, [facility] [address] [id number] [address] [place] [address], [place] [address] Dec, [facility] [address] [id number] [address] [place] [address], [place] [address] Dec, [facility] [address] [id number] [address] [place] [address], [place] [address] Dec, [facility] [address] [id number] [address] [place] [address], [place] [address] Sep, [facility] [address] [id number] [address] [place] [address], [place] [address] Sep, [facility] [address] [id number] [address] [place] [address], [place] [address] Sep, [facility] [address] [id number] [address] [place] [address], [place] [address] Sep, [facility] [address] [id number] [address] [place] [address], [place] [address] Sep, [facility] [address] [id number] [address] [place] [address], [place] [address] Sep, [facility] [address] [id number] [address] [place] [address], [place] [address] Sep, [facility] [address] [id number] [address] [place] [address], [place] [address] Sep, [facility] [address] [id number] [address] [place] [address], [place] [address] Aug, [facility] [address] [id number] [address] [place] [address], [place] [address] Aug, [facility] [address] [id number] [address] [place] [address], [place] [address] May, [facility] [address] [id number] [address] [place] [address], [place] [address] May, [facility] [address] [id number] [address] [place] [address], [place] [address] Apr, [facility] [address] [id number] [address] [place] [address], [place] [address] Apr, [facility] [address] [id number] [address] [place] [address], [place] [address] Apr, [facility] [address] [id number] [address] [place] [address], [place] [address] Apr, [facility] [address] [id number] [address] [place] [address], [place] [address] Apr, [facility] [address] [id number] [address] [place] [address], [place] [address] Apr, [facility] [address] [id number] [address] [place] [address], [place] [address] May, [facility] [address] [id number] [address] [place] [address], [place] [address] 18 May, 2012 [facility] [address] [id number] [address] [place] [address], [place] [address] 15 May, 2012 [facility] [address] [id number] [address] [place] [address], [place] [address] 15 May, 2012 [facility] [address] [id number] [address] [place] [address], [place] [address] 13 May, 2012 [facility] [address] [id number] [address] [place] [address], [place] [address] May, [facility] [address] [id number] [address] [place] [address], [place] [address] 13 Apr, 2012 [facility] [address] [id number] [address] [place] [address], [place] [address] 13 Apr, 2012 [facility] [address] [id number] [address] [place] [address], [place] [address] 08 Apr, 2012 [facility] [address] [id number] [address] [place] [address] Apr, [facility] [address] [id number] [address] [place] [address], [place] [address] Apr, [facility] [address] [id number] [address] [place] [address] Apr, [facility] [address] [id number] [address] [place] [address], [place] [address] Apr, [facility] [address] [id number] [address] [place] [address] Apr, [facility] [address] [id number] [address] [place] [address], [place] [address] Apr, [facility] [address] [id number] [address] [place] [address] Apr, [facility] [address] [id number] [address] [place] [address] Mar, [facility] [address] [id number] [address] [place] [address] Mar, [facility] [address] [id number] [address] [place] [address] Mar, [facility] [address] [id number] [address] [place] [address] Mar, [facility] [address] [id number] [address] [place] [address], [place] [address] Mar, [facility] [address] [id number] [address] [place] [address] Mar, [facility] [address] [id number] [address] [place] [address] Mar, [facility] [address] [id number] [address] [place] [address], [place] [address] Mar, [facility] [address] [id number] [address] [place] [address], [place] [address] Mar, [facility] [address] [id number] [address] [place] [address], [place] [address] 25 Feb, 2012 [facility] [address] [id number] [address] [place] [address], [place] [address] 16 Feb, 2012 [facility] [address] [id number] [address] [place] [address], [place] [address] Feb, [facility] [address] [id number] [address] [place] [address], [place] [address] Jan, [facility] [address] [id number] [address] [place] [address], [place] [address] Jan, [facility] [address] [id number] [address] [place] [address], [place] [address] Jan, [facility] [address] [id number] [address] [place] [address], [place] [address] Jan, [facility] [address] [id number] [address] [place] [address], [place] [address] Jan, [facility] [address] [id number] [address] [place] [address], [place] [address] Jan, [facility] [address] [id number] [address] [place] [address], [place] [address] Jan, [facility] [address] [id number] [address] [place] [address], [place] [address] Jan, [facility] [address] [id number] [address] [place] [address], [place] [address] Jan, [facility] [address] [id number] [address] [place] [address], [place] [address] Jan, [facility] [address] [id number] [address] [place] [address], [place] [address] Dec, [facility] [address] [id number] [address] [place] [address], [place] [address] Dec, [facility] [address] [id number] [address] [place] [address], [place] [address] Dec, [facility] [address] [id number] [address] [place] [address], [place] [address] Dec, [facility] [address] [id number] [address] [place] [address], [place] [address] Nov, [facility] [address] [id number] [address] [place] [address], [place] [address] Nov, [facility] [address] [id number] [address] [place] [address], [place] [address] Nov, [facility] [address] [id number] [address] [place] [address], [place] [address] October, [facility] [address] [id number] [address] [place] [address], [place] [address] October, [facility] [address] [id number] [address] [place] [address], [place] [address] October, [facility] [address] [id number] [address] [place] [address], [place] [address] October, [facility] [address] [id number] [address] [place] [address], [place] [address] October, [facility] [address] [id number] [address] [place] [address], [place] [address] October, [facility] [address] [id number] [address] [place] [address], [place] [address] Aug, [facility] [address] [id number] [address] [place] [address], [place] [address] Mar, [facility] [address] [id number] [address] [place] [address], [place] [address] 16 Nov, 2010 [facility] [address] [id number] [address] [place] [address] May, [facility] [place] [address] [facility] [id number] [address] [place] [address] May, [facility] [place] [address] [facility] [id number] [address] [place] [address] Apr, [facility] [place] [address] [facility] [id number] [address] [place] [address] Mar, [facility] [place] [address] [facility] [id number] [address] [place] [address] Mar, IMMUNIZATIONS No Known Immunizations SOCIAL HISTORY Never Assessed REASON FOR VISIT Medication Change Request PLAN OF CARE VITAL SIGNS MEDICATIONS Medication Instructions Dosage Frequency Start Date End Date Duration Jaida strange Fexofenadine HCl 60 MG Orally Twice a day 1 tablet 12h Nov, 90 days Active RESULTS No Results PROCEDURES No Known procedures INSTRUCTIONS MEDICATIONS ADMINISTERED No Known Medications MEDICAL (GENERAL) HISTORY Type Description Date Medical History Severe spinal stenosis [facility] cervical spine CT and MRI [...]
--- OUTSIDE RECORDS SUMMARY | 2019-06-19 05:33 | XMS REPORT ---
Author Author Sydnie HANCOCK [facility] Address [address] [place] [address] Care Team Providers Care Hooker Up Name Role Phone NAHOMY HANCOCK Unavailable PROBLEMS Type Condition ICD9-CM Code BWI75-BO Code Onset Dates Condition S tatus SNOMED Code Problem Hormone replacement therapy Z79.890 Ac tive 256059500 Problem Abnormal CT scan, head R93.0 Active 067383478 Problem Sensorineural hearing loss (SNHL) of both ears H90 .3 Active 506375619 Problem History of colon polyps Z86.010 Active 699528386 Problem Bruising, spontaneous R23.3 Active 558206146 Problem Generalized anxiety disorder F41.1 A ctive 23993978 Problem Arthralgia of hip, unspecified laterality M25.559 Active 42263165 Problem Hematuria, unspecified type R31.9 Ac tive 26994397 Problem Imbalance R26.89 Active 562920988 Problem Hammer toe of right foot M20.41 Activ e 422386323 Problem Plantar wart of right foot B07.0 Act mitchell [id number] Problem Sciatica of left side M54.32 Active 96524118 Problem Hyperlipidemia, unspecified hyperlipidemia type E7 8.5 Active 36295463 Problem Hypertension I10 Active 1332149 3 Problem Night sweats R61 Active 2203993 0 Problem Fibromyalgia M79.7 Active 1597575 7 Problem Major depressive disorder, recurrent episode, moderate F33.1 Active 862682039 Problem Acute left-sided low back pain with left-sided sciatica M54.42 Active 037855336 Problem Bladder spasm N32.89 Active 462066 006 Problem Gastritis without bleeding, unspecified chronicity, unspecified gastritis type K29.70 Active 477627339 Problem Bipolar 1 disorder, mixed F31.60 Acti ve 53461109 Problem Grief F43.20 Active 49021041 Problem Other chronic pain G89.29 Active 8 4668877 Problem Allergic rhinitis J30.9 Active 61 655275 Problem Hot flashes due to menopause N95.1 A ctive 328423258 Problem Ataxia R27.0 Active 88596965 Problem Hearing loss, unspecified laterality H91.90 Active 18142108 ALLERGIES No Information ENCOUNTERS Encounter Location Date Diagnosis [facility] [address] [facility] [id number] [address] [place] [phone] Mar, [facility] [address] [facility] [id number] [address] [place] [phone] Feb, [facility] [address] [facility] [id number] [address] [place] [phone] Feb, [facility] [address] [facility] [id number] [address] [place] [phone] Jan, [facility] [address] [place] [id number] [address] [place] [id number] Jan, [facility] [address] [facility] [id number] [address] [place] [phone] Jan, Bipolar 1 disorder, mixed F3 1.60 [place] [address] [facility] [id number] [address] [place] [phone] Jan, Bipolar 1 disorder, mixed F3 1.60 [place] [address] [facility] [id number] [address] [place] [phone] Jan, Bipolar 1 disorder, mixed F3 1.60 [facility] [address] [facility] [id number] [address] [place] [id number] Jan, Bipolar 1 disorder, mixed F3 1.60 [facility] [address] [facility] [id number] [address] [place] [id number] Dec, Bipolar 1 disorder, mixed F3 1.60 ; Generalized anxiety disorder F41.1 and 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 [facility] [address] [facility] [id number] [address] [place] [phone] Dec, Other 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 (current) dr bin therapy Z79.899 [facility] [address] [facility] [id number] [address] [place] [phone] Dec, Bipolar 1 disorder, mixed F3 1.60 [facility] [address] [facility] [id number] [address] [place] [phone] Dec, Bipolar 1 disorder, mixed F3 1.60 [facility] [address] [facility] [id number] [address] [place] [phone] Nov, Bipolar 1 disorder, mixed F3 1.60 [facility] [address] [facility] [id number] [address] [place] [phone] Nov, Bipolar 1 disorder, mixed F3 1.60 [facility] [address] [facility] [id number] [address] [place] [phone] Nov, Bipolar 1 disorder, mixed F3 1.60 [facility] [address] [facility] [id number] [address] [place] [phone] Nov, Allergic rhinitis J30.9 [facility] [address] [facility] [id number] [address] [place] [id number] Nov, Allergic rhinitis J30.9 [facility] [address] [facility] [id number] [address] [place] [phone] Nov, [facility] [address] [facility] [id number] [address] [place] [phone] Nov, Bipolar 1 disorder, mixed F3 1.60 [facility] [address] [facility] [id number] [address] [place] [phone] Nov, Fibromyalgia M79.7 and Aller gic rhinitis J30.9 [facility] [address] [facility] [id number] [address] [place] [phone] October, Bipolar 1 disorder, mixed F3 1.60 [facility] [address] [facility] [id number] [address] [place] [phone] October, Acute nasopharyngitis J00 [facility] [address] [facility] [id number] [address] [place] [id number] October, Bitten or stung by nonvenomo us insect and other nonvenomous arthropods, initial encounter W57.XXXA and Insect bite (nonvenomous) of abdominal wall, initial encounter S30.861A [facility] [address] [id number] [address] [place] [phone] October, Insect bite (nonvenomous) of abdominal wall, initial encounter S30.861A ; Bitten or stung by nonvenomous insect and other nonvenomous arthropods, initial encounter W57.XXXA ; Allergic rhinitis J30.9 and Low back pain M54.5 [facility] [address] [id number] [address] [place] [phone] October, Bipolar 1 disorder, mixed F3 1.60 [facility] [address] [facility] [id number] [address] [place] [phone] October, [facility] [address] [facility] [id number] [address] [place] [phone] October, [facility] [address] [id number] [address] [place] [id number] October, Bipolar 1 disorder, mixed F3 1.60 [facility] [address] [facility] [id number] [address] [place] [phone] Sep, Bipolar 1 disorder, mixed F3 1.60 [facility] [address] [id number] [address] [place] [phone] Sep, Other chronic pain G89.29 [facility] [address] [id number] [address] [place] [id number] Sep, [facility] [address] [facility] [id number] [address] [place] [phone] Sep, Bipolar 1 disorder, mixed F3 1.60 [facility] [address] [facility] [id number] [address] [place] [phone] Sep, Allergic rhinitis J30.9 and Sciatica of left side M54.32 [facility] [address] [facility] [id number] [address] [place] [phone] Sep, Bipolar 1 disorder, mixed F3 1.60 [facility] [address] [facility] [id number] [address] [place] [id number] Sep, Bipolar 1 disorder, mixed F3 1.60 and Generalized anxiety disorder F41.1 [facility] [address] [facility] [id number] [address] [place] [phone] Aug, [facility] [address] [id number] [address] [place] [phone] Aug, Bipolar 1 disorder, mixed F3 1.60 [facility] [address] [facility] [id number] [address] [place] [phone] Aug, Bipolar 1 disorder, mixed F3 1.60 [facility] [address] [facility] [id number] [address] [place] [phone] Aug, [facility] [address] [facility] [id number] [address] [place] [phone] Aug, Generalized anxiety disorder F41.1 [facility] [address] [facility] [id number] [address] [place] [phone] Aug, Bipolar 1 disorder, mixed F3 1.60 [facility] [address] [facility] [id number] [address] [place] [id number] Aug, Plantar wart of right foot B 07.0 [facility] [address] [facility] [id number] [address] [place] [phone] Aug, Bipolar 1 disorder, mixed F3 1.60 [facility] [address] [facility] [id number] [address] [place] [id number] Jul, Bipolar 1 disorder, mixed F3 1.60 [facility] [address] [facility] [id number] [address] [place] [id number] Jul, [facility] [address] [facility] [id number] [address] [place] [id number] 14 Jul, 2017 Bipolar 1 disorder, mixed F3 1.60 [facility] [address] [facility] [id number] [address] [place] [id number] 09 Jul, 2017 Generalized anxiety disorder F41.1 [facility] [address] [place] [id number] [address] [place] [id number] 07 Jul, 2017 Bipolar 1 disorder, mixed F3 1.60 [facility] [address] [place] [id number] [address] [place] [phone] Jul, Acute left-sided low back pa in with left-sided sciatica M54.42 [facility] [address] [place] [id number] [place] [phone] Jul, Coccydynia M53.3 [facility] [address] [place] [id number] [address] [place] [id number] Jun, Bipolar 1 disorder, mixed F3 1.60 [facility] [address] [place] [id number] [address] [place] [id number] Jun, Acute nasopharyngitis J00 [facility] [address] [place] [id number] [address] [place] [phone] Jun, Bipolar 1 disorder, mixed F3 1.60 [facility] [address] [place] [id number] [address] [place] [id number] Jun, Fibromyalgia M79.7 [facility] [address] [place] [id number] [address] [place] [phone] Jun, Bipolar 1 disorder, mixed F3 1.60 [facility] [address] [facility] [id number] [address] [place] [phone] Jun, Fibromyalgia M79.7 and Bipol ar 1 disorder, mixed F31.60 [facility] [address] [facility] [id number] [address] [place] [id number] May, Bipolar 1 disorder, mixed F3 1.60 ; Generalized anxiety disorder F41.1 and 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 [address] [place] [id number] [address] [place] [phone] 10 May, 2017 Bladder spasm N32.89 and Acu te cystitis without hematuria N30.00 [facility] [address] [place] [phone] 07 May, 2017 Bipolar 1 disorder, mixed F3 1.60 [place] [address] [place] [id number] [address] [place] [id number] 30 Apr, 2017 [place] [address] [address] Apr, Major depressive disorder, r ecurrent episode, moderate F33.1 and Encounter for immunization Z23 [place] [address] [place] [phone] Apr, Bipolar 1 disorder, mixed F3 1.60 [place] [address] [place] [id number] [address] [place] [id number] 22 Apr, 2017 Bipolar 1 disorder, mixed F3 1.60 [place] [address] [place] [id number] [address] [place] [id number] 16 Apr, 2017 Bipolar 1 disorder, mixed F3 1.60 [place] [address] [place] [id number] [address] [place] [id number] 13 Apr, 2017 Yeast vaginitis B37.3 [place] [address] [place] [id number] [place] [id number] 09 Apr, 2017 Bipolar 1 disorder, mixed F3 1.60 [facility] [address] [place] [id number] [address] [place] [phone] Apr, Encounter for immunization Z 23 and Cellulitis L03.90 [facility] [address] [facility] [id number] [address] [place] [phone] Apr, Bipolar 1 disorder, mixed F3 1.60 [facility] [address] [facility] [id number] [address] [place] [id number] Mar, Bipolar 1 disorder, mixed F3 1.60 [facility] [address] [place] [id number] [place] [id number] Mar, Bipolar 1 disorder, mixed F3 1.60 [facility] [address] [place] [id number] [place] [id number] Mar, Imbalance R26.89 and Encount er for immunization Z23 [facility] [address] [place] [id number] [address] [place] [id number] Mar, Generalized anxiety disorder F41.1 [facility] [address] [place] [id number] [place] [id number] Mar, Bipolar 1 disorder, mixed F3 1.60 [facility] [address] [place] [id number] [place] [id number] Mar, Generalized anxiety disorder F41.1 [facility] [address] [place] [id number] [place] [id number] Mar, Bipolar 1 disorder, mixed F3 1.60 [facility] [address] [place] [id number] [address] [place] [id number] Mar, Bipolar 1 disorder, mixed F3 1.60 [facility] [address] [facility] [id number] [address] [place] [id number] Feb, Bipolar 1 disorder, mixed F3 1.60 [facility] [address] [facility] [id number] [address] [place], [place] [address] Feb, Bipolar 1 disorder, mixed F3 1.60 and Generalized anxiety disorder F41.1 [facility] [address] [place] [id number] [place] [phone] Feb, Gastritis without bleeding, unspecified chronicity, unspecified gastritis type K29.70 ; Hammer toe of right foot M20.41 and Other viral warts B07.8 [place] [address] [facility] [id number] [address] [place] [phone] Feb, Bipolar 1 disorder, mixed F3 1.60 [place] [address] [facility] [id number] [address] [place] [id number] Feb, Bipolar 1 disorder, mixed F3 1.60 [place] [address] [facility] [id number] [address] [place] [id number] Feb, Bipolar 1 disorder, mixed F3 1.60 [place] [address] [facility] [id number] [address] [place] [phone] Jan, Encounter for screening mamm ogram for breast cancer Z12.31 ; Other viral warts B07.8 and Allergic rhinitis J30.9 [place] [address] [facility] [id number] [address] [place] [phone] Jan, Bipolar 1 disorder, mixed F3 1.60 [place] [address] [facility] [id number] [address] [place] [phone] Jan, Bipolar 1 disorder, mixed F3 1.60 [place] [address] [facility] [id number] [address] [place] [phone] Jan, [place] [address] [facility] [id number] [address] [place] [phone] Jan, Bipolar 1 disorder, mixed F3 1.60 [place] [address] [facility] [id number] [address] [place] [phone] Jan, Bipolar 1 disorder, mixed F3 1.60 [place] [address] [facility] [id number] [address] [place] [phone] Jan, Allergic rhinitis J30.9 ; He maturia R31.9 and Colon cancer screening Z12.11 [place] [address] [facility] [id number] [address] [place] [phone] Dec, Bipolar 1 disorder, mixed F3 1.60 [facility] [address] [id number] [address] [place] [id number] Dec, Bipolar 1 disorder, mixed F3 1.60 ; Generalized anxiety disorder F41.1 and 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 [facility] [address] [facility] [id number] [address] [place] [phone] Dec, Bipolar 1 disorder, mixed F3 1.60 [facility] [address] [id number] [address] [place] [phone] Dec, Bipolar 1 disorder, mixed F3 1.60 [facility] [address] [facility] [id number] [address] [place] [id number] Dec, Bipolar 1 disorder, mixed F3 1.60 [facility] [address] [facility] [id number] [address] [place] [phone] Dec, Low back pain M54.5 and Recu rrent urinary tract infection N39.0 [facility] [address] [facility] [id number] [address] [place] [id number] Nov, Bipolar 1 disorder, mixed F3 1.60 [facility] [address] [facility] [id number] [address] [place] [phone] Nov, Bipolar 1 disorder, mixed F3 1.60 [facility] [address] [facility] [id number] [address] [place] [phone] Nov, Bipolar 1 disorder, mixed F3 1.60 [facility] [address] [facility] [id number] [address] [place] [id number] Nov, Bipolar 1 disorder, mixed F3 1.60 [facility] [address] [facility] [id number] [address] [place] [id number] Nov, [facility] [address] [facility] [id number] [address] [place] [id number] Nov, Anesthesia of skin R20.0 ; F requent UTI N39.0 ; Tobacco abuse Z72.0 and Colon cancer screening Z12.11 [place] [address] [place] [id number] [address] [place] [id number] Nov, Bipolar 1 disorder, mixed F3 1.60 [place] [address] [place] [id number] [place], [place] [id number] October, Bipolar 1 disorder, mixed F3 1.60 [place] [address] [place] [id number] [address] [place] [id number] October, Bipolar 1 disorder, mixed F3 1.60 [place] [address] [place] [id number] [place] [id number] October, Bipolar 1 disorder, mixed F3 1.60 [place] [address] [place] [id number] [place] [id number] October, Bipolar 1 disorder, mixed F3 1.60 [place] [address] [place] [id number] [address] [place] [id number] October, Bipolar 1 disorder, mixed F3 1.60 [place] [address] [place] [id number] [place] [phone] October, Cervicalgia M54.2 and Bipola r 1 disorder, mixed F31.60 [place] [address] [place] [id number] [place] [id number] October, Hypertension I10 ; Hyperlipi demia, unspecified hyperlipidemia type E78.5 and Family history of thyroid disease Z83.49 [place] [address] [place] [id number] [place] [id number] October, [place] [address] [place] [id number] [place] [phone] October, Hypertension I10 ; Hyperlipi demia, unspecified hyperlipidemia type E78.5 and Family history of thyroid problem Z83.49 [place] [address] [place] [id number] [place] [id number] October, Bipolar 1 disorder, mixed F3 1.60 [facility] [address] [facility] [id number] [address] [place] [phone] Sep, Bipolar 1 disorder, mixed F3 1.60 [facility] [address] [facility] [id number] [address] [place] [phone] Sep, Bipolar 1 disorder, mixed F3 1.60 [facility] [address] [facility] [id number] [address] [place] [phone] Sep, Bipolar 1 disorder, mixed F3 1.60 [facility] [address] [facility] [id number] [address] [place] [phone] Sep, History of colon polyps Z86. 010 and Hematochezia K92.1 [facility] [address] [facility] [id number] [address] [place] [phone] Sep, Major depressive disorder, r ecurrent episode, moderate F33.1 [facility] [address] [facility] [id number] [address] [place] [phone] Sep, Bipolar 1 disorder, mixed F3 1.60 [facility] [address] [facility] [id number] [address] [place] [id number] Aug, Hot flashes due to menopause N95.1 [facility] [address] [facility] [id number] [address] [place] [id number] Aug, Bipolar 1 disorder, mixed F3 1.60 [facility] [address] [facility] [id number] [address] [place] [id number] Aug, [facility] [address] [facility] [id number] [address] [place] [phone] Aug, Bipolar 1 disorder, mixed F3 1.60 [facility] [address] [facility] [id number] [address] [place] [id number] Aug, Bipolar 1 disorder, mixed F3 1.60 [facility] [address] [facility] [id number] [address] [place] [id number] Aug, Hot flashes due to menopause N95.1 ; Cervicalgia M54.2 and Ataxia R27.0 [place] [address] [address] Jul, Bipolar 1 disorder, mixed F3 1.60 [place] [address] Jul, Bipolar 1 disorder, mixed F3 1.60 [place] [address] Jul, Bipolar 1 disorder, mixed F3 1.60 [place] [address] Jul, Bipolar 1 disorder, mixed F3 1.60 [place] [address] Jul, Bipolar 1 disorder, mixed F3 1.60 [place] [address] [id number] Jul, Cervicalgia M54.2 ; Tremor R 25.1 ; Hearing abnormally acute, unspecified laterality H93.239 ; Alopecia L65.9 ; Encounter for immunization Z23 and Family history of thyroid disease Z83.49 [place] [address] [id number] Jul, Bipolar 1 disorder, mixed F3 1.60 [place] [address] [id number] Jun, [place] [address] Jun, Hearing disorder, unspecifie d laterality H93.299 [place] [address] [address] [place] [id number] Jun, Bipolar 1 disorder, mixed F3 1.60 [place] [address] [id number] Jun, Bipolar 1 disorder, mixed F3 1.60 [facility] [address] [id number] [address] [place] [id number] Jun, Allergic rhinitis J30.9 [facility] [address] [id number] [address] [place] [id number] Jun, Bipolar 1 disorder, mixed F3 1.60 [facility] [address] [id number] [address] [place] [id number] Jun, Bipolar 1 disorder, mixed F3 1.60 [facility] [address] [id number] [address] [place] [address], [place] [address] Jun, Allergic rhinitis J30.9 [facility] [address] [id number] [address] [place] [address], [place] [id number] Jun, Allergic rhinitis J30.9 [facility] [address] [facility] [id number] [address] [place] [id number] Jun, Bipolar 1 disorder, mixed F3 1.60 [facility] [address] [id number] [address] [place] [id number] May, Bipolar 1 disorder, mixed F3 1.60 [facility] [address] [id number] [address] [place] [id number] May, Bipolar 1 disorder, mixed F3 1.60 [facility] [address] [facility] [id number] [address] [place] [id number] May, [facility] [address] [facility] [facility] [id number] [address] [place] [phone] May, Bipolar 1 disorder, mixed F3 1.60 [facility] [address] [id number] [address] [place] [id number] May, Bipolar 1 disorder, mixed F3 1.60 [facility] [address] [facility] [id number] [address] [place] [id number] May, [facility] [address] [facility] [id number] [address] [place] [phone] May, [facility] [address] [facility] [id number] [address] [place] [phone] May, [facility] [address] [facility] [id number] [address] [place] [phone] May, Abdominal pain, unspecified location R10.9 [facility] [address] [place] [id number] [address] [place] [phone] May, [facility] [address] [place] [id number] [place] [address] Apr, Hematuria R31.9 ; Ataxia R27 .0 and Hearing loss, unspecified laterality H91.90 [facility] [address] [facility] [id number] [address] [place] [id number] Apr, Bipolar 1 disorder, mixed F3 1.60 [facility] [address] [place] [id number] [address] [place] [phone] Apr, Acute effusion of both middl e ears H65.193 [facility] [address] [facility] [id number] [address] [place] [phone] Apr, Hematuria R31.9 and Pyelonep hritis N12 [facility] [address] [facility] [id number] [address] [place] [phone] Apr, [facility] [address] [place] [id number] [address] [place] [address] Mar, Bipolar 1 disorder, mixed F3 1.60 [facility] [address] [place] [id number] [address] [place] [phone] Mar, [facility] [address] [facility] [id number] [address] [place] [id number] Mar, Bipolar 1 disorder, mixed F3 1.60 [facility] [address] [place] [id number] [address] [place] [phone] Mar, Bipolar 1 disorder, mixed F3 1.60 [facility] [address] [place] [id number] [address] [place] [id number] Mar, Encounter for immunization Z 23 and Gastritis without bleeding, unspecified chronicity, unspecified gastritis type K29.70 [place] [address] [place] [address] 05 Mar, 2016 Bipolar 1 disorder, mixed F3 1.60 and Grief F43.20 [place] [address] Mar, Gastritis without bleeding, unspecified chronicity, unspecified gastritis type K29.70 [place] [address] Mar, Bipolar 1 disorder, mixed F3 1.60 [place] [address] Mar, Gastritis without bleeding, unspecified chronicity, unspecified gastritis type K29.70 [place] [address] [place] [address] Mar, [place] [address] [place] [id number] 27 Feb, 2016 Bipolar 1 disorder, mixed F3 1.60 [place] [address] [place] [id number] 22 Feb, 2016 Bipolar 1 disorder, mixed F3 1.60 and Grief F43.20 [place] [address] [place] [id number] Feb, Gastritis without bleeding, unspecified chronicity, unspecified gastritis type K29.70 [place] [address] [place] [id number] [address] [place] [id number] 14 Feb, 2016 Bipolar 1 disorder, mixed F3 1.60 [facility] [address] [place] [id number] [place] [id number] 09 Feb, 2016 Gastroesophageal reflux dise ase, esophagitis presence not specified K21.9 [place] [address] [place] [id number] Jan, Bipolar 1 disorder, mixed F3 1.60 [facility] [address] [facility] [id number] [address] [place] [id number] Jan, Bipolar 1 disorder, mixed F3 1.60 and Unsteady gait R26.81 [facility] [address] [facility] [id number] [address] [place] [phone] Jan, Bipolar 1 disorder, mixed F3 1.60 [facility] [address] [place] [id number] [address] [place], [place] [address] Jan, Bipolar 1 disorder, mixed F3 1.60 and 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 [place] [address] [place] [id number] [place] [id number] Jan, Bipolar 1 disorder, mixed F3 1.60 [place] [address] [place] [id number] [address] [place] [phone] Jan, Bipolar 1 disorder, mixed F3 1.60 [place] [address] [place] [id number] [address] [place] [phone] Jan, Bipolar 1 disorder, mixed F3 1.60 ; Grief F43.20 and 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 [place] [address] [place] [id number] [address] [place] [phone] Jan, Bipolar 1 disorder, mixed F3 1.60 [place] [address] [place] [id number] [address] [place] [phone] Dec, [place] [address] [place] [id number] [address] [place] [id number] Dec, Bipolar 1 disorder, mixed F3 1.60 ; Vitamin D deficiency, unspecified E55.9 ; H/O allergic rhinitis Z87.09 ; Other chronic pain G89.29 and Dorsalgia, unspecified M54.9 [facility] [address] [facility] [id number] [address] [place] [phone] Dec, [place] [address] [place] [id number] [address] [place] [phone] Dec, Bipolar 1 disorder, mixed F3 1.60 [facility] [address] [facility] [id number] [address] [place] [phone] Dec, Major depressive disorder, r ecurrent episode, moderate F33.1 [place] [address] [facility] [id number] [address] [place] [address] Dec, Major depressive disorder, r ecurrent episode, moderate F33.1 [place] [address] [facility] [id number] [address] [place] [phone] Nov, [place] [address] [facility] [id number] [address] [place] [phone] Nov, Bipolar 1 disorder, mixed F3 1.60 [place] [address] [facility] [id number] [address] [place] [phone] Nov, Major depressive disorder, r ecurrent episode, moderate F33.1 [place] [address] [facility] [id number] [address] [place] [id number] Nov, Cervicalgia M54.2 ; Arthralg ia of hip, unspecified laterality M25.559 ; Allergic rhinitis J30.9 and Hormone replacement therapy Z79.890 [facility] [address] [facility] [id number] [address] [place] [id number] Nov, Other seasonal allergic rhin itis J30.2 [facility] [address] [facility] [id number] [address] [place] [phone] October, Major depressive disorder, r ecurrent episode, moderate F33.1 [facility] [address] [facility] [id number] [address] [place] [id number] October, Major depressive disorder, r ecurrent episode, moderate F33.1 and Arthralgia of hip, unspecified laterality M25.559 [place] [address] [facility] [id number] [address] [place] [id number] 19 May, 2016 Grief F43.20 ; Hypertension I10 ; Hyperlipidemia, unspecified hyperlipidemia type E78.5 ; Other chronic pain G89.29 and Allergic rhinitis, unspecified allergic rhinitis type J30.9 [place] [address] [facility] [id number] [address] [place] [phone] October, Major depressive disorder, r ecurrent episode, moderate F33.1 [place] [address] [facility] [id number] [address] [place] [phone] Sep, Major depressive disorder, r ecurrent episode, moderate F33.1 [place] [address] [facility] [id number] [address] [place] [phone] Sep, [place] [address] [facility] [id number] [address] [place] [id number] Sep, Major depressive disorder, r ecurrent episode, moderate F33.1 [place] [id number] [place] [phone] Sep, Grief F43.20 [facility] [address] [facility] [id number] [address] [place] [phone] Aug, Major depressive disorder, r ecurrent episode, moderate F33.1 [place] [id number] [place] [phone] Aug, Bipolar 1 disorder, mixed F3 1.60 [place] [id number] [place] [address] Aug, Allergic rhinitis J30.9 ; Ce rvicalgia M54.2 and Low back pain M54.5 [facility] [address] [place] [id number] [address] [place] [id number] Aug, Major depressive disorder, r ecurrent episode, moderate F33.1 [facility] [address] [facility] [id number] [address] [place] [phone] Aug, Sinusitis J32.9 and Tobacco 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 [facility] [address] [place] [id number] [address] [place] [phone] Aug, [facility] [address] [id number] [address] [place] [id number] Aug, Depressive disorder, not els ewhere classified F32.9 ; Hormone replacement therapy Z79.[address] scan, head R93.0 [facility] [address] [id number] [address] [place] [phone] Aug, Major depressive disorder, r ecurrent episode, moderate F33.1 [facility] [address] [id number] [address] [place] [phone] Jul, Major depressive disorder, r ecurrent episode, moderate F33.1 [facility] [address] [id number] [address] [place] [phone] Jul, Abdominal pain R10.9 and Hyp ertension I10 [facility] [address] [id number] [address] [place] [phone] Jul, [facility] [address] [id number] [address] [place] [id number] Jul, Major depressive disorder, r ecurrent episode, moderate F33.1 [facility] [address] [id number] [address] [place] [phone] Jul, [facility] [address] [id number] [address] [place] [id number] Jul, [facility] [address] [id number] [address] [place] [phone] Jun, [facility] [address] [id number] [address] [place] [id number] Jun, Depressive disorder, not els ewhere classified F32.9 [facility] [address] [id number] [address] [place] [phone] Jun, [facility] [address] [id number] [address] [place] [phone] Jun, [facility] [address] [id number] [address] [place] [phone] Jun, Arthralgia of hip, unspecifi ed laterality M25.559 ; Bruising, spontaneous R23.3 and Night sweats R61 [facility] [address] [id number] [address] [place] [phone] Jun, [facility] [address] [id number] [address] [place] [phone] Jun, [facility] [address] [id number] [address] [place] [phone] May, [facility] [address] [id number] [address] [place] [phone] May, Myalgia M79.1 and Screening, lipid Z13.220 [facility] [address] [id number] [address] [place] [phone] Apr, Status post cervical spinal fusion Z98.1 ; Fibromyalgia M79.7 and Unsteady gait R26.81 [facility] [address] [id number] [address] [place] [phone] Nov, [facility] [address] [id number] [address] [place] [phone] Nov, [facility] [address] [id number] [address] [place] [phone] October, [facility] [address] [id number] [address] [place] [id number] October, [facility] [address] [id number] [address] [place] [phone] October, [facility] [address] [id number] [address] [place] [phone] October, [facility] [address] [id number] [address] [place] [phone] October, [facility] [address] [id number] [address] [place] [phone] October, Dysuria 788.1 ; Nausea 787.0 2 and Urinary tract infection 599.0 [facility] [address] [id number] [address] [place] [id number] 14 Sep, 2014 [facility] [address] [id number] [address] [place] [id number] Sep, [facility] [address] [id number] [address] [place] [phone] Aug, [facility] [address] [id number] [address] [place] [phone] Aug, [facility] [address] [id number] [address] [place] [id number] 24 Aug, 2014 [facility] [address] [id number] [address] [place] [id number] 24 Aug, 2014 [facility] [address] [id number] [address] [place] [phone] Aug, [facility] [address] [id number] [address] [place] [phone] Aug, [facility] [address] [id number] [address] [place] [phone] Aug, [facility] [address] [id number] [address] [place] [phone] 19 Aug, 2014 [facility] [address] [id number] [address] [place] [id number] 19 Aug, 2014 [facility] [address] [id number] [address] [place] [id number] 18 Aug, 2014 [facility] [address] [id number] [address] [place] [phone] 18 Aug, 2014 [facility] [address] [id number] [address] [place] [id number] 13 Aug, 2014 [facility] [address] [id number] [address] [place] [address], [place] [address] 13 Aug, 2014 [facility] [address] [id number] [address] [place] [address], [place] [address] 11 Aug, 2014 [facility] [address] [id number] [address] [place] [address], [place] [address] 11 Aug, 2014 [facility] [address] [id number] [address] [place] [address], [place] [address] 06 Aug, 2014 [facility] [address] [id number] [address] [place] [address], [place] [address] 06 Aug, 2014 [facility] [address] [id number] [address] [place] [address], [place] [address] 05 Aug, 2014 [facility] [address] [id number] [address] [place] [address], [place] [address] 05 Aug, 2014 [facility] [address] [id number] [address] [place] [address], [place] [address] 04 Aug, 2014 [facility] [address] [id number] [address] [place] [address], [place] [address] Aug, [facility] [address] [id number] [address] [place] [address], [place] [address] Aug, [facility] [address] [id number] [address] [place] [address], [place] [address] Jul, 2014 [facility] [address] [id number] [address] [place] [address], [place] [address] Jul, 2014 [facility] [address] [id number] [address] [place] [address], [place] [address] Jul, 2014 [facility] [address] [id number] [address] [place] [address], [place] [address] Jul, 2014 [facility] [address] [id number] [address] [place] [address], [place] [address] Jul, 2014 [facility] [address] [id number] [address] [place] [address], [place] [address] Jul, 2014 [facility] [address] [id number] [address] [place] [address], [place] [address] Jul, 2014 [facility] [address] [id number] [address] [place] [address], [place] [address] Jul, 2014 [facility] [address] [id number] [address] [place] [address], [place] [address] Jul, 2014 [facility] [address] [id number] [address] [place] [address], [place] [address] Jul, 2014 [facility] [address] [id number] [address] [place] [address], [place] [address] Jul, 2014 [facility] [address] [id number] [address] [place] [address], [place] [address] Jul, 2014 [facility] [address] [id number] [address] [place] [address], [place] [address] Jul, [facility] [address] [id number] [address] [place] [address], [place] [address] Jul, [facility] [address] [id number] [address] [place] [address], [place] [address] Jun, [facility] [address] [id number] [address] [place] [address], [place] [address] Jun, [facility] [address] [id number] [address] [place] [address], [place] [address] Jun, [facility] [address] [id number] [address] [place] [address], [place] [address] Jun, [facility] [address] [id number] [address] [place] [address], [place] [address] Jun, [facility] [address] [id number] [address] [place] [address], [place] [address] Jun, [facility] [address] [id number] [address] [place] [address], [place] [address] May, [facility] [address] [id number] [address] [place] [address], [place] [address] May, [facility] [address] [id number] [address] [place] [address], [place] [address] May, [facility] [address] [id number] [address] [place] [address], [place] [address] May, [facility] [address] [id number] [address] [place] [address], [place] [address] May, [facility] [address] [id number] [address] [place] [address], [place] [address] May, [facility] [address] [id number] [address] [place] [address], [place] [address] Apr, [facility] [address] [id number] [address] [place] [address], [place] [address] Apr, [facility] [address] [id number] [address] [place] [address], [place] [address] Apr, [facility] [address] [id number] [address] [place] [address], [place] [address] Apr, [facility] [address] [id number] [address] [place] [address], [place] [address] Apr, [facility] [address] [id number] [address] [place] [address], [place] [address] Apr, [facility] [address] [id number] [address] [place] [address], [place] [address] Mar, [facility] [address] [id number] [address] [place] [address], [place] [address] Mar, [facility] [address] [id number] [address] [place] [address], [place] [address] Mar, [facility] [address] [id number] [address] [place] [address], [place] [address] Mar, [facility] [address] [id number] [address] [place] [address], [place] [address] Mar, [facility] [address] [id number] [address] [place] [address], [place] [address] Mar, [facility] [address] [id number] [address] [place] [address], [place] [address] Mar, [facility] [address] [id number] [address] [place] [address], [place] [address] Mar, [facility] [address] [id number] [address] [place] [address], [place] [address] Mar, [facility] [address] [id number] [address] [place] [address], [place] [address] Mar, [facility] [address] [id number] [address] [place] [address], [place] [address] Mar, [facility] [address] [id number] [address] [place] [address], [place] [address] Mar, [facility] [address] [id number] [address] [place] [address], [place] [address] 30 Feb, 2013 [facility] [address] [id number] [address] [place] [address], [place] [address] 29 Feb, 2013 [facility] [address] [id number] [address] [place] [address], [place] [address] 29 Feb, 2013 [facility] [address] [id number] [address] [place] [address], [place] [address] 23 Feb, 2013 [facility] [address] [id number] [address] [place] [address], [place] [address] 23 Feb, 2013 [facility] [address] [id number] [address] [place] [address], [place] [address] 08 Feb, 2013 [facility] [address] [id number] [address] [place] [address], [place] [address] 08 Feb, 2013 [facility] [address] [id number] [address] [place] [address], [place] [address] Jan, [facility] [address] [id number] [address] [place] [address] [place] [address] Jan, [facility] [address] [id number] [address] [place] [address], [place] [address] Jan, [facility] [address] [id number] [address] [place] [address], [place] [address] Dec, [facility] [address] [id number] [address] [place] [address], [place] [address] Dec, [facility] [address] [id number] [address] [place] [address], [place] [address] Dec, [facility] [address] [id number] [address] [place] [address], [place] [address] Dec, [facility] [address] [id number] [address] [place] [address], [place] [address] Sep, [facility] [address] [id number] [address] [place] [address], [place] [address] Sep, [facility] [address] [id number] [address] [place] [address], [place] [address] Sep, [facility] [address] [id number] [address] [place] [address], [place] [address] Sep, [facility] [address] [id number] [address] [place] [address], [place] [address] Sep, [facility] [address] [id number] [address] [place] [address], [place] [address] Sep, [facility] [address] [id number] [address] [place] [address], [place] [address] Sep, [facility] [address] [id number] [address] [place] [address], [place] [address] Sep, [facility] [address] [id number] [address] [place] [address], [place] [address] Aug, [facility] [address] [id number] [address] [place] [address], [place] [address] Aug, [facility] [address] [id number] [address] [place] [address], [place] [address] May, [facility] [address] [id number] [address] [place] [address], [place] [address] May, [facility] [address] [id number] [address] [place] [address], [place] [address] Apr, [facility] [address] [id number] [address] [place] [address], [place] [address] Apr, [facility] [address] [id number] [address] [place] [address], [place] [address] Apr, [facility] [address] [id number] [address] [place] [address], [place] [address] Apr, [facility] [address] [id number] [address] [place] [address], [place] [address] Apr, [facility] [address] [id number] [address] [place] [address], [place] [address] Apr, [facility] [address] [id number] [address] [place] [address], [place] [address] 18 May, 2012 [facility] [address] [id number] [address] [place] [address], [place] [address] 18 May, 2012 [facility] [address] [id number] [address] [place] [address], [place] [address] 15 May, 2012 [facility] [address] [id number] [address] [place] [address], [place] [address] 15 May, 2012 [facility] [address] [id number] [address] [place] [address], [place] [address] 13 May, 2012 [facility] [address] [id number] [address] [place] [address], [place] [address] 13 May, [address] [facility] [address] [id number] [address] [place] [address], [place] [address] 13 Apr, 2012 [facility] [address] [id number] [address] [place] [address], [place] [address] Apr, [facility] [address] [id number] [address] [place] [address], [place] [address] 08 Apr, 2012 [facility] [address] [id number] [address] [place] [phone] Apr, [facility] [address] [id number] [address] [place] [address], [place] [address] Apr, [facility] [address] [id number] [address] [place] [id number] Apr, [facility] [address] [id number] [address] [place] [address], [place] [address] Apr, [facility] [address] [id number] [address] [place] [phone] Apr, [facility] [address] [id number] [address] [place] [address], [place] [address] Apr, [facility] [address] [id number] [address] [place] [phone] Apr, [facility] [address] [id number] [address] [place] [phone] Mar, [facility] [address] [id number] [address] [place] [phone] Mar, [facility] [address] [id number] [address] [place] [phone] Mar, [facility] [address] [id number] [address] [place] [id number] Mar, [facility] [address] [id number] [address] [place] [phone] Mar, [facility] [address] [id number] [address] [place] [phone] Mar, [facility] [address] [id number] [address] [place] [phone] Mar, [facility] [address] [id number] [address] [place] [address], [place] [address] Mar, [facility] [address] [id number] [address] [place] [address], [place] [address] Mar, [facility] [address] [id number] [address] [place] [address], [place] [address] 25 Feb, 2012 [facility] [address] [id number] [address] [place] [address], [place] [address] 16 Feb, 2012 [facility] [address] [id number] [address] [place] [address], [place] [address] 11 Feb, 2012 [facility] [address] [id number] [address] [place] [address], [place] [address] Jan, [facility] [address] [id number] [address] [place] [address], [place] [address] Jan, [facility] [address] [id number] [address] [place] [address], [place] [address] Jan, [facility] [address] [id number] [address] [place] [address], [place] [address] Jan, [facility] [address] [id number] [address] [place] [address], [place] [address] Jan, [facility] [address] [id number] [address] [place] [address], [place] [address] Jan, [facility] [address] [id number] [address] [place] [address], [place] [address] Jan, [facility] [address] [id number] [address] [place] [address], [place] [address] Jan, [facility] [address] [id number] [address] [place] [address], [place] [address] Jan, [facility] [address] [id number] [address] [place] [address], [place] [address] Jan, [facility] [address] [id number] [address] [place] [address], [place] [address] Dec, [facility] [address] [id number] [address] [place] [address], [place] [address] Dec, [facility] [address] [id number] [address] [place] [address], [place] [address] Dec, [facility] [address] [id number] [address] [place] [address], [place] [address] Dec, [facility] [address] [id number] [address] [place] [address], [place] [address] Nov, [facility] [address] [id number] [address] [place] [address], [place] [address] Nov, [facility] [address] [id number] [address] [place] [address], [place] [address] Nov, [facility] [address] [id number] [address] [place] [address], [place] [address] October, [facility] [address] [id number] [address] [place] [address], [place] [address] October, [facility] [address] [id number] [address] [place] [address], [place] [address] October, [facility] [address] [id number] [address] [place] [address], [place] [address] October, [facility] [address] [id number] [address] [place] [address], [place] [address] October, [facility] [address] [id number] [address] [place] [address], [place] [address] October, [facility] [address] [id number] [address] [place] [address], [place] [address] Aug, [facility] [address] [id number] [address] [place] [address], [place] [address] Mar, [facility] [address] [id number] [address] [place] [address], [place] [address] 16 Nov, 2010 [facility] [address] [id number] [address] [place] [id number] May, [facility] [address] [facility] [id number] [address] [place] [id number] May, [facility] [address] [facility] [id number] [address] [place] [phone] Apr, [facility] [address] [facility] [id number] [address] [place] [id number] Mar, [facility] [address] [facility] [id number] [address] [place] [phone] Mar, IMMUNIZATIONS No Known Immunizations SOCIAL HISTORY Never Assessed REASON FOR VISIT medication request PLAN OF CARE VITAL SIGNS MEDICATIONS Medication Instructions Dosage Frequency Start Date End Date Duration S alexandr Fexofenadine-Pseudoephed ER 60-120 MG Orally Twice a day 1 tablet a s needed 12h 11 Nov, 2017 9 Mar, 2018 30 days Active RESULTS No Results PROCEDURES [...]
--- OUTSIDE RECORDS SUMMARY | 2019-06-19 05:33 | XMS REPORT ---
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 Teacher Name Role Phone JOHN MORTON Unavailable PROBLEMS Type Condition ICD9-CM Code KNP94-TE Code Onset Dates Condition S tatus SNOMED Code Problem Hormone replacement therapy Z79.890 Ac tive 634834911 Problem Abnormal CT scan, head R93.0 Active 948751679 Problem Sensorineural hearing loss (SNHL) of both ears H90 .3 Active 907680374 Problem History of colon polyps Z86.010 Active 670152415 Problem Bruising, spontaneous R23.3 Active 910551915 Problem Generalized anxiety disorder F41.1 A ctive 32525613 Problem Arthralgia of hip, unspecified laterality M25.559 Active 30176130 Problem Hematuria, unspecified type R31.9 Ac tive 24951225 Problem Imbalance R26.89 Active 217928618 Problem Hammer toe of right foot M20.41 Activ e 763766507 Problem Plantar wart of right foot B07.0 Act mitchell [id number] Problem Sciatica of left side M54.32 Active 90324157 Problem Hyperlipidemia, unspecified hyperlipidemia type E7 8.5 Active 61890696 Problem Hypertension I10 Active 9025391 3 Problem Night sweats R61 Active 9784168 0 Problem Fibromyalgia M79.7 Active 2414133 7 Problem Major depressive disorder, recurrent episode, moderate F33.1 Active 975751901 Problem Acute left-sided low back pain with left-sided sciatica M54.42 Active 591216179 Problem Bladder spasm N32.89 Active 074484 006 Problem Gastritis without bleeding, unspecified chronicity, unspecified gastritis type K29.70 Active 064250145 Problem Bipolar 1 disorder, mixed F31.60 Acti ve 45791221 Problem Grief F43.20 Active 81247010 Problem Other chronic pain G89.29 Active 8 1036277 Problem Allergic rhinitis J30.9 Active 61 967494 Problem Hot flashes due to menopause N95.1 A ctive 532025320 Problem Ataxia R27.0 Active 11476696 Problem Hearing loss, unspecified laterality H91.90 Active 35666668 ALLERGIES No Information ENCOUNTERS Encounter Location Date Diagnosis [facility] [address] [facility] [place] [id number] [address] [place] [address] Mar, [facility] [address] [facility] [place] [id number] [address] [place] [address] Feb, [facility] [address] [facility] [place] [id number] [address] [place] [address] Feb, [facility] [address] [facility] [place] [id number] [address] [place] [address] Jan, [facility] [address] [place] [id number] [address] [place] [address] Jan, [facility] [address] [facility] [place] [id number] [address] [place] [address] Jan, Bipolar 1 disorder, mixed F3 1.60 [facility] [address] [facility] [place] [facility] [id number] [address] [place] [address] Jan, Bipolar 1 disorder, mixed F3 1.60 [facility] [address] [facility] [place] [id number] [address] [place] [address] Jan, Bipolar 1 disorder, mixed F3 1.60 [facility] [address] [facility] [place] [id number] [address] [place] [address] Jan, Bipolar 1 disorder, mixed F3 1.60 [facility] [address] [facility] [place] [id number] [address] [place] [address] Dec, Bipolar 1 disorder, mixed F3 1.60 ; Generalized anxiety disorder F41.1 and 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 [facility] [address] [facility] [place] [id number] [address] [place] [address] Dec, 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 (current) dr bin therapy Z79.899 [facility] [address] [facility] [place] [id number] [address] [place] [address] Dec, Bipolar 1 disorder, mixed F3 1.60 [facility] [address] [facility] [place] [id number] [address] [place] [address] Dec, Bipolar 1 disorder, mixed F3 1.60 [facility] [address] [facility] [place] [id number] [address] [place] [address] Nov, Bipolar 1 disorder, mixed F3 1.60 [facility] [address] [id number] [address] [place] [address] Nov, Bipolar 1 disorder, mixed F3 1.60 [facility] [address] [facility] [place] [id number] [address] [place] [address] Nov, Bipolar 1 disorder, mixed F3 1.60 [facility] [address] [facility] [place] [id number] [address] [place] [address] Nov, Allergic rhinitis J30.9 [facility] [address] [facility] [place] [id number] [address] [place] [address] Nov, Allergic rhinitis J30.9 [facility] [address] [facility] [place] [id number] [address] [place] [address] Nov, [facility] [address] [facility] [place] [id number] [address] [place] [address] Nov, Bipolar 1 disorder, mixed F3 1.60 [facility] [address] [facility] [place] [id number] [address] [place] [address] Nov, Fibromyalgia M79.7 and Aller gic rhinitis J30.9 [facility] [address] [facility] [place] [id number] [address] [place] [address] October, Bipolar 1 disorder, mixed F3 1.60 [facility] [address] [facility] [place] [id number] [address] [place] [address] October, Acute nasopharyngitis J00 [facility] [address] [facility] [place] [id number] [address] [place] [address] October, Bitten or stung by nonvenomo us insect and other nonvenomous arthropods, initial encounter W57.XXXA and Insect bite (nonvenomous) of abdominal wall, initial encounter S30.861A [facility] [address] [id number] [address] [place] [address] October, Insect bite (nonvenomous) of abdominal wall, initial encounter S30.861A ; Bitten or stung by nonvenomous insect and other nonvenomous arthropods, initial encounter W57.XXXA ; Allergic rhinitis J30.9 and Low back pain M54.5 [facility] [address] [id number] [address] [place] [address] October, Bipolar 1 disorder, mixed F3 1.60 [facility] [address] [facility] [place] [id number] [address] [place] [address] October, [facility] [address] [facility] [place] [id number] [address] [place] [address] October, [facility] [address] [id number] [address] [place] [address] October, Bipolar 1 disorder, mixed F3 1.60 [facility] [address] [id number] [address] [place] [address] Sep, Bipolar 1 disorder, mixed F3 1.60 [facility] [address] [id number] [address] [place] [address] Sep, Other chronic pain G89.29 [facility] [address] [id number] [address] [place] [address] Sep, [facility] [address] [facility] [place] [facility] [id number] [address] [place] [address] Sep, Bipolar 1 disorder, mixed F3 1.60 [facility] [address] [facility] [place] [id number] [address] [place] [address] Sep, Allergic rhinitis J30.9 and Sciatica of left side M54.32 [facility] [address] [facility] [place] [id number] [address] [place] [address] Sep, Bipolar 1 disorder, mixed F3 1.60 [facility] [address] [facility] [place] [id number] [address] [place] [address] Sep, Bipolar 1 disorder, mixed F3 1.60 and Generalized anxiety disorder F41.1 [facility] [address] [facility] [place] [id number] [address] [place] [address] Aug, [facility] [address] [facility] [place] [id number] [address] [place] [address] Aug, Bipolar 1 disorder, mixed F3 1.60 [facility] [address] [facility] [place] [id number] [address] [place] [address] Aug, Bipolar 1 disorder, mixed F3 1.60 [facility] [address] [place] [id number] [address] [place] [address] Aug, [facility] [address] [place] [id number] [address] [place] [address] Aug, Generalized anxiety disorder F41.1 [facility] [address] [facility] [place] [id number] [address] [place] [address] Aug, Bipolar 1 disorder, mixed F3 1.60 [facility] [address] [facility] [place] [id number] [address] [place] [address] Aug, Plantar wart of right foot B 07.0 [facility] [address] [facility] [place] [id number] [address] [place] [address] Aug, Bipolar 1 disorder, mixed F3 1.60 [facility] [address] [facility] [place] [id number] [address] [place] [address] Jul, Bipolar 1 disorder, mixed F3 1.60 [facility] [address] [facility] [place] [id number] [address] [place] [address] Jul, [facility] [address] [place] [id number] [address] [place] [address] 14 Jul, 2017 Bipolar 1 disorder, mixed F3 1.60 [facility] [address] [facility] [place] [id number] [address] [place] [address] 09 Jul, 2017 Generalized anxiety disorder F41.1 [facility] [address] [place] [id number] [address] [place] [address] Jul, Bipolar 1 disorder, mixed F3 1.60 [facility] [address] [place] [id number] [address] [place] [address] Jul, Acute left-sided low back pa in with left-sided sciatica M54.42 [facility] [address] [place] [id number] [address] [place] [address] Jul, Coccydynia M53.3 [facility] [address] [place] [id number] [address] [place] [address] Jun, Bipolar 1 disorder, mixed F3 1.60 [facility] [address] [place] [id number] [address] [place] [address] Jun, Acute nasopharyngitis J00 [facility] [address] [place] [id number] [place] [address] Jun, Bipolar 1 disorder, mixed F3 1.60 [facility] [address] [place] [id number] [address] [place] [address] Jun, Fibromyalgia M79.7 [facility] [address] [place] [id number] [address] [place] [address] Jun, Bipolar 1 disorder, mixed F3 1.60 [facility] [address] [place] [id number] [address] [place] [address] Jun, Fibromyalgia M79.7 and Bipol ar 1 disorder, mixed F31.60 [facility] [address] [place] [id number] [address] [place] [address] May, Bipolar 1 disorder, mixed F3 1.60 ; Generalized anxiety disorder F41.1 and 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 [facility] [address] [place] [id number] [address] [place] [address] May, Bipolar 1 disorder, mixed F3 1.60 [facility] [address] [place] [id number] [address] [place] [address] 14 May, 2017 Cough R05 and Body aches R52 [facility] [address] [place] [id number] [place] [address] 10 May, 2017 Bladder spasm N32.89 [address] te cystitis without hematuria N30.00 [place] [address] [address] 07 May, 2017 Bipolar 1 disorder, mixed F3 1.60 [place] [address] [address] 30 Apr, 2017 [place] [address] [address] Apr, Major depressive disorder, r ecurrent episode, moderate F33.1 and Encounter for immunization Z23 [place] [address] [address] Apr, Bipolar 1 disorder, mixed F3 1.60 [place] [id number] [address] Apr, Bipolar 1 disorder, mixed F3 1.60 [place] [address] [address] 16 Apr, 2017 Bipolar 1 disorder, mixed F3 1.60 [place] [id number] [place] [address] 13 Apr, 2017 Yeast vaginitis B37.3 [place] [address] [place] [id number] [address] [place] [address] 09 Apr, 2017 Bipolar 1 disorder, mixed F3 1.60 [facility] [address] [place] [id number] [address] [place] [address] 07 Apr, [address] for immunization Z23 [facility] [address] [place] [id number] [address] [place], [place] [address] Apr, Bipolar 1 disorder, mixed F3 1.60 [facility] [address] [place] [id number] [address] [place] [address] Mar, Bipolar 1 disorder, mixed F3 1.60 [facility] [address] [place] [id number] [address] [place] [id number] Mar, Bipolar 1 disorder, mixed F3 1.60 [facility] [address] [place] [id number] [address] [place] [id number] Mar, Imbalance R26.89 [address] Encount er for immunization Z23 [facility] [address] [place] [id number] [place] [address] Mar, Generalized anxiety disorder F41.1 [place] [address] [place] [id number] [address] [place] [address] Mar, Bipolar 1 disorder, mixed F3 1.60 [place] [address] [place] [id number] [address] [place] [address] Mar, Generalized anxiety disorder F41.1 [place] [address] [place] [id number] [place] [address] Mar, Bipolar 1 disorder, mixed F3 1.60 [facility] [address] [place] [id number] [address] [place] [address] Mar, Bipolar 1 disorder, mixed F3 1.60 [facility] [address] [place] [id number] [address] [place] [address] Feb, Bipolar 1 disorder, mixed F3 1.60 [facility] [address] [place] [id number] [address] [place] [address] Feb, Bipolar 1 disorder, mixed F3 1.60 and Generalized anxiety disorder F41.1 [facility] [address] [place] [id number] [address] [place] [address] Feb, Gastritis without bleeding, unspecified chronicity, unspecified gastritis type K29.70 ; Hammer toe of right foot M20.41 and Other viral warts B07.8 [place] [address] [facility] [place] [facility] [id number] [address] [place] [address] Feb, Bipolar 1 disorder, mixed F3 1.60 [place] [address] [facility] [place] [id number] [address] [place] [address] Feb, Bipolar 1 disorder, mixed F3 1.60 [place] [address] [facility] [place] [id number] [address] [place] [address] Feb, Bipolar 1 disorder, mixed F3 1.60 [place] [address] [facility] [place] [id number] [address] [place] [address] Jan, Encounter for screening mamm ogram for breast cancer Z12.31 ; Other viral warts B07.8 and Allergic rhinitis J30.9 [place] [address] [facility] [place] [id number] [address] [place] [address] Jan, Bipolar 1 disorder, mixed F3 1.60 [place] [address] [facility] [place] [id number] [address] [place] [address] Jan, Bipolar 1 disorder, mixed F3 1.60 [place] [address] [facility] [place] [id number] [address] [place] [address] Jan, [place] [address] [facility] [place] [id number] [address] [place] [address] Jan, Bipolar 1 disorder, mixed F3 1.60 [place] [address] [facility] [place] [id number] [address] [place] [address] Jan, Bipolar 1 disorder, mixed F3 1.60 [place] [address] [facility] [place] [id number] [address] [place] [address] Jan, Allergic rhinitis J30.9 ; He maturia R31.9 and Colon cancer screening Z12.11 [place] [address] [facility] [place] [id number] [address] [place] [address] Dec, Bipolar 1 disorder, mixed F3 1.60 [facility] [address] [id number] [address] [place] [address] Dec, Bipolar 1 disorder, mixed F3 1.60 ; Generalized anxiety disorder F41.1 and Other fdc (current) drug therapy Z79.899 [facility] [address] [id number] [address] [place] [address] Dec, Bipolar 1 disorder, mixed F3 1.60 [facility] [address] [id number] [address] [place] [address] Dec, Bipolar 1 disorder, mixed F3 1.60 [facility] [address] [facility] [place] [id number] [address] [place] [address] Dec, Bipolar 1 disorder, mixed F3 1.60 [facility] [address] [facility] [place] [id number] [address] [place] [address] Dec, Low back pain M54.5 and Recu rrent urinary tract infection N39.0 [facility] [address] [id number] [address] [place] [address] Nov, Bipolar 1 disorder, mixed F3 1.60 [facility] [address] [facility] [place] [id number] [address] [place] [address] Nov, Bipolar 1 disorder, mixed F3 1.60 [facility] [address] [facility] [place] [id number] [address] [place] [address] Nov, Bipolar 1 disorder, mixed F3 1.60 [facility] [address] [id number] [address] [place] [address] Nov, Bipolar 1 disorder, mixed F3 1.60 [facility] [address] [facility] [place] [id number] [address] [place] [address] Nov, [facility] [address] [facility] [place] [id number] [address] [place] [address] Nov, Anesthesia of skin R20.0 ; F requent UTI N39.0 ; Tobacco abuse Z72.0 and Colon cancer screening Z12.11 [facility] [address] [place] [id number] [address] [place] [address] Nov, Bipolar 1 disorder, mixed F3 1.60 [facility] [address] [place] [id number] [address] [place] [address] October, Bipolar 1 disorder, mixed F3 1.60 [place] [address] [place] [id number] [place] [address] October, Bipolar 1 disorder, mixed F3 1.60 [place] [address] [place] [id number] [address] [place] [address] October, Bipolar 1 disorder, mixed F3 1.60 [place] [address] [place] [id number] [address] [place] [address] October, Bipolar 1 disorder, mixed F3 1.60 [place] [address] [address] October, Bipolar 1 disorder, mixed F3 1.60 [place] [address] [place] [id number] [address] [place] [address] October, Cervicalgia M54.2 and Bipola r 1 disorder, mixed F31.60 [place] [address] [place] [id number] [address] [place] [address] October, Hypertension I10 ; Hyperlipi demia, unspecified hyperlipidemia type E78.5 and Family history of thyroid disease Z83.49 [place] [address] [place] [id number] [address] [place] [address] October, [place] [address] [place] [id number] [place] [address] October, Hypertension I10 ; Hyperlipi demia, unspecified hyperlipidemia type E78.5 and Family history of thyroid problem Z83.49 [place] [address] [place] [id number] [address] [place] [address] October, Bipolar 1 disorder, mixed F3 1.60 [facility] [address] [facility] [place] [id number] [address] [place] [address] Sep, Bipolar 1 disorder, mixed F3 1.60 [facility] [address] [facility] [place] [id number] [address] [place] [address] Sep, Bipolar 1 disorder, mixed F3 1.60 [facility] [address] [facility] [place] [id number] [address] [place] [id number] Sep, Bipolar 1 disorder, mixed F3 1.60 [facility] [address] [facility] [place] [facility] [id number] [address] [place] [id number] Sep, History of colon polyps Z86. 010 and Hematochezia K92.1 [facility] [address] [facility] [place] [id number] [address] [place] [id number] Sep, Major depressive disorder, r ecurrent episode, moderate F33.1 [place] [address] [address] [place] [id number] [address] [place] [id number] Sep, Bipolar 1 disorder, mixed F3 1.60 [facility] [address] [facility] [place] [facility] [id number] [address] [place] [id number] Aug, Hot flashes due to menopause N95.1 [facility] [address] [facility] [place] [facility] [id number] [address] [place] [id number] Aug, Bipolar 1 disorder, mixed F3 1.60 [facility] [address] [facility] [place] [facility] [id number] [address] [place] [id number] Aug, [facility] [address] [facility] [place] [id number] [address] [place] [id number] Aug, Bipolar 1 disorder, mixed F3 1.60 [facility] [address] [facility] [place] [id number] [address] [place] [id number] Aug, Bipolar 1 disorder, mixed F3 1.60 [facility] [address] [facility] [place] [id number] [address] [place] [phone] Aug, Hot flashes due to menopause N95.1 ; Cervicalgia M54.2 and Ataxia R27.0 [place] [address] [phone] Jul, Bipolar 1 disorder, mixed F3 1.60 [place] [address] Jul, Bipolar 1 disorder, mixed F3 1.60 [place] [address] Jul, Bipolar 1 disorder, mixed F3 1.60 [place] [address] Jul, Bipolar 1 disorder, mixed F3 1.60 [place] [address] Jul, Bipolar 1 disorder, mixed F3 1.60 [place] [address] [id number] Jul, Cervicalgia M54.2 ; Tremor R 25.1 ; Hearing abnormally acute, unspecified laterality H93.239 ; Alopecia L65.9 ; Encounter for immunization Z23 and Family history of thyroid disease Z83.49 [place] [address] [address] Jul, Bipolar 1 disorder, mixed F3 1.60 [place] [address] [address] Jun, [place] [address] Jun, Hearing disorder, unspecifie d laterality H93.299 [place] [address] [address] [place] [address] Jun, Bipolar 1 disorder, mixed F3 1.60 [place] [address] [address] Jun, Bipolar 1 disorder, mixed F3 1.60 [facility] [address] [id number] [address] [place] [address] Jun, Allergic rhinitis J30.9 [facility] [address] [id number] [address] [place] [address] Jun, Bipolar 1 disorder, mixed F3 1.60 [facility] [address] [id number] [address] [place] [address] Jun, Bipolar 1 disorder, mixed F3 1.60 [facility] [address] [id number] [address] [place] [address] Jun, Allergic rhinitis J30.9 [facility] [address] [id number] [address] [place] [address] Jun, Allergic rhinitis J30.9 [facility] [address] [facility] [place] [id number] [address] [place] [address] Jun, Bipolar 1 disorder, mixed F3 1.60 [facility] [address] [id number] [address] [place] [address] May, Bipolar 1 disorder, mixed F3 1.60 [facility] [address] [id number] [address] [place] [address] May, Bipolar 1 disorder, mixed F3 1.60 [facility] [address] [facility] [place] [id number] [address] [place] [address] May, [facility] [address] [facility] [place] [id number] [address] [place] [address] May, Bipolar 1 disorder, mixed F3 1.60 [facility] [address] [id number] [address] [place] [address] May, Bipolar 1 disorder, mixed F3 1.60 [facility] [address] [facility] [place] [id number] [address] [place] [address] May, [facility] [address] [facility] [place] [id number] [address] [place] [address] May, [facility] [address] [facility] [place] [id number] [address] [place] [address] May, [facility] [address] [facility] [place] [id number] [address] [place] [address] May, Abdominal pain, unspecified location R10.9 [facility] [address] [facility] [place] [id number] [address] [place] [address] May, [facility] [address] [place] [id number] [address] [place] [address] Apr, Hematuria R31.9 ; Ataxia R27 .0 and Hearing loss, unspecified laterality H91.90 [facility] [address] [facility] [place] [id number] [address] [place] [address] Apr, Bipolar 1 disorder, mixed F3 1.60 [facility] [address] [facility] [place] [id number] [address] [place] [address] Apr, Acute effusion of both middl e ears H65.193 [facility] [address] [facility] [place] [id number] [address] [place] [address] Apr, Hematuria R31.9 and Pyelonep hritis N12 [facility] [address] [facility] [place] [id number] [address] [place] [address] Apr, [facility] [address] [place] [id number] [address] [place] [address] Mar, Bipolar 1 disorder, mixed F3 1.60 [facility] [address] [facility] [place] [id number] [address] [place] [address] Mar, [facility] [address] [facility] [place] [id number] [address] [place] [address] Mar, Bipolar 1 disorder, mixed F3 1.60 [facility] [address] [facility] [place] [id number] [address] [place] [address] Mar, Bipolar 1 disorder, mixed F3 1.60 [facility] [address] [place] [id number] [address] [place] [address] Mar, Encounter for immunization Z 23 and Gastritis without bleeding, unspecified chronicity, unspecified gastritis type K29.70 [place] [address] [address] [place] [address] Mar, Bipolar 1 disorder, mixed F3 1.60 and Grief F43.20 [place] [address] [place] [address] Mar, Gastritis without bleeding, unspecified chronicity, unspecified gastritis type K29.70 [place] [address] Mar, Bipolar 1 disorder, mixed F3 1.60 [place] [address] Mar, Gastritis without bleeding, unspecified chronicity, unspecified gastritis type K29.70 [place] [address] [address] [place] [address] Mar, [place] [address] [address] Feb, Bipolar 1 disorder, mixed F3 1.60 [place] [address] [address] [place] [address] Feb, Bipolar 1 disorder, mixed F3 1.60 and Grief F43.20 [place] [address] [address] [place] [address] Feb, Gastritis without bleeding, unspecified chronicity, unspecified gastritis type K29.70 [place] [address] [address] 14 Feb, 2016 Bipolar 1 disorder, mixed F3 1.60 [facility] [address] [place] [id number] [place], [place] [address] 09 Feb, 2016 Gastroesophageal reflux dise ase, esophagitis presence not specified K21.9 [place] [address] [address] [place] [address] Jan, Bipolar 1 disorder, mixed F3 1.60 [facility] [address] [facility] [place] [id number] [address] [place] [address] Jan, Bipolar 1 disorder, mixed F3 1.60 and Unsteady gait R26.81 [facility] [address] [facility] [place] [id number] [address] [place] [address] Jan, Bipolar 1 disorder, mixed F3 1.60 [facility] [address] [facility] [place] [id number] [address] [place] [address] Jan, Bipolar 1 disorder, mixed F3 1.60 and 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 [place] [address] [address] [facility] [place] [id number] [address] [place] [address] Jan, Bipolar 1 disorder, mixed F3 1.60 [place] [address] [address] [place] [id number] [address] [place] [address] Jan, Bipolar 1 disorder, mixed F3 1.60 [place] [address] [address] [facility] [place] [id number] [address] [place] [address] Jan, Bipolar 1 disorder, mixed F3 1.60 ; Grief F43.20 and Other fdc (current) drug therapy Z79.899 [place] [address] [place] [id number] [address] [place] [address] Jan, Bipolar 1 disorder, mixed F3 1.60 [place] [address] [address] [facility] [place] [id number] [address] [place] [address] Dec, [place] [address] [address] [facility] [place] [id number] [address] [place] [address] Dec, Bipolar 1 disorder, mixed F3 1.60 ; Vitamin D deficiency, unspecified E55.9 ; H/O allergic rhinitis Z87.09 ; Other chronic pain G89.29 and Dorsalgia, unspecified M54.9 [facility] [address] [facility] [place] [id number] [address] [place] [address] Dec, [place] [address] [address] [facility] [place] [id number] [address] [place] [address] Dec, Bipolar 1 disorder, mixed F3 1.60 [facility] [address] [facility] [place] [id number] [address] [place] [address] Dec, Major depressive disorder, r ecurrent episode, moderate F33.1 [place] [address] [address] [facility] [place] [id number] [address] [place] [address] Dec, Major depressive disorder, r ecurrent episode, moderate F33.1 [place] [address] [address] [facility] [place] [id number] [address] [place] [address] Nov, [place] [address] [address] [facility] [place] [id number] [address] [place] [address] Nov, Bipolar 1 disorder, mixed F3 1.60 [place] [address] [address] [facility] [place] [id number] [address] [place] [address] Nov, Major depressive disorder, r ecurrent episode, moderate F33.1 [place] [address] [address] [facility] [place] [id number] [address] [place] [address] Nov, Cervicalgia M54.2 ; Arthralg ia of hip, unspecified laterality M25.559 ; Allergic rhinitis J30.9 and Hormone replacement therapy Z79.890 [facility] [address] [facility] [place] [id number] [address] [place] [address] Nov, Other seasonal allergic rhin itis J30.2 [facility] [address] [facility] [place] [id number] [address] [place] [address] October, Major depressive disorder, r ecurrent episode, moderate F33.1 [facility] [address] [facility] [place] [id number] [address] [place] [address] October, Major depressive disorder, r ecurrent episode, moderate F33.1 and Arthralgia of hip, unspecified laterality M25.559 [place] [address] [address] [facility] [id number] [address] [place] [address] October, Grief F43.20 ; Hypertension I10 ; Hyperlipidemia, unspecified hyperlipidemia type E78.5 ; Other chronic pain G89.29 and Allergic rhinitis, unspecified allergic rhinitis type J30.9 [place] [address] [address] [facility] [place] [id number] [address] [place] [address] October, Major depressive disorder, r ecurrent episode, moderate F33.1 [place] [address] [address] [facility] [place] [id number] [address] [place] [address] Sep, Major depressive disorder, r ecurrent episode, moderate F33.1 [place] [address] [address] [facility] [place] [id number] [address] [place] [address] Sep, [place] [address] [place] [id number] [place] [address] Sep, Major depressive disorder, r ecurrent episode, moderate F33.1 [place] [address] [address] [place] [id number] [address] [place] [address] Sep, Grief F43.20 [facility] [address] [facility] [place] [id number] [address] [place] [address] Aug, Major depressive disorder, r ecurrent episode, moderate F33.1 [place] [id number] [place] [address] Aug, Bipolar 1 disorder, mixed F3 1.60 [place] [id number] [place] [address] Aug, Allergic rhinitis J30.9 ; Ce rvicalgia M54.2 and Low back pain M54.5 [facility] [address] [place] [id number] [address] [place] [address] Aug, Major depressive disorder, r ecurrent episode, moderate F33.1 [facility] [address] [place] [id number] [address] [place] [address] Aug, Sinusitis J32.9 and Tobacco 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 [facility] [address] [place] [id number] [address] [place] [address] Aug, [facility] [address] [id number] [address] [place] [address] Aug, Depressive disorder, not els ewhere classified F32.9 ; Hormone replacement therapy Z79.[address] scan, head R93.0 [facility] [address] [id number] [address] [place] [address] Aug, Major depressive disorder, r ecurrent episode, moderate F33.1 [facility] [address] [id number] [address] [place] [address] Jul, Major depressive disorder, r ecurrent episode, moderate F33.1 [facility] [address] [id number] [address] [place] [address] Jul, Abdominal pain R10.9 and Hyp ertension I10 [facility] [address] [id number] [address] [place] [address] Jul, [facility] [address] [id number] [address] [place] [address] Jul, Major depressive disorder, r ecurrent episode, moderate F33.1 [facility] [address] [id number] [address] [place] [address] Jul, [facility] [address] [id number] [address] [place] [address] Jul, [facility] [address] [id number] [address] [place] [address] Jun, [facility] [address] [id number] [address] [place] [address] Jun, Depressive disorder, not els ewhere classified F32.9 [facility] [address] [id number] [address] [place] [address] Jun, [facility] [address] [id number] [address] [place] [address] Jun, [facility] [address] [id number] [address] [place] [address] Jun, Arthralgia of hip, unspecifi ed laterality M25.559 ; Bruising, spontaneous R23.3 and Night sweats R61 [facility] [address] [id number] [address] [place] [address] Jun, [facility] [address] [id number] [address] [place] [address] Jun, [facility] [address] [id number] [address] [place] [address] May, [facility] [address] [id number] [address] [place] [address] May, Myalgia M79.1 and Screening, lipid Z13.220 [facility] [address] [id number] [address] [place] [address] Apr, Status post cervical spinal fusion Z98.1 ; Fibromyalgia M79.7 and Unsteady gait R26.81 [facility] [address] [id number] [address] [place] [address] Nov, [facility] [address] [id number] [address] [place] [address] Nov, [facility] [address] [id number] [address] [place] [address] October, [facility] [address] [id number] [address] [place] [address] October, [facility] [address] [id number] [address] [place] [address] October, [facility] [address] [id number] [address] [place] [address] October, [facility] [address] [id number] [address] [place] [address] October, [facility] [address] [id number] [address] [place] [address] October, Dysuria 788.1 ; Nausea 787.0 2 and Urinary tract infection 599.0 [facility] [address] [id number] [address] [place] [address] 14 Sep, 2014 [facility] [address] [id number] [address] [place] [address] Sep, [facility] [address] [id number] [address] [place] [address] Aug, [facility] [address] [id number] [address] [place] [address] Aug, [facility] [address] [id number] [address] [place] [address] 24 Aug, 2014 [facility] [address] [id number] [address] [place] [address] 24 Aug, 2014 [facility] [address] [id number] [address] [place] [address] Aug, [facility] [address] [id number] [address] [place] [address] Aug, [facility] [address] [id number] [address] [place] [address] Aug, [facility] [address] [id number] [address] [place] [address] 19 Aug, 2014 [facility] [address] [id number] [address] [place] [address] 19 Aug, 2014 [facility] [address] [id number] [address] [place] [address] 18 Aug, 2014 [facility] [address] [id number] [address] [place] [address] 18 Aug, 2014 [facility] [address] [id number] [address] [place] [address] 13 Aug, 2014 [facility] [address] [id number] [address] [place] [address], [place] [address] 13 Aug, 2014 [facility] [address] [id number] [address] [place] [address], [place] [address] 11 Aug, 2014 [facility] [address] [id number] [address] [place] [address], [place] [address] 11 Aug, 2014 [facility] [address] [id number] [address] [place] [address], [place] [address] 06 Aug, 2014 [facility] [address] [id number] [address] [place] [address], [place] [address] 06 Aug, 2014 [facility] [address] [id number] [address] [place] [address], [place] [address] 05 Aug, 2014 [facility] [address] [id number] [address] [place] [address], [place] [address] Aug, 2014 [facility] [address] [id number] [address] [place] [address], [place] [address] 04 Aug, 2014 [facility] [address] [id number] [address] [place] [address], [place] [address] Aug, [facility] [address] [id number] [address] [place] [address], [place] [address] Aug, [facility] [address] [id number] [address] [place] [address], [place] [address] Jul, [facility] [address] [id number] [address] [place] [address], [place] [address] Jul, 2014 [facility] [address] [id number] [address] [place] [address], [place] [address] Jul, 2014 [facility] [address] [id number] [address] [place] [address], [place] [address] Jul, 2014 [facility] [address] [id number] [address] [place] [address], [place] [address] Jul, 2014 [facility] [address] [id number] [address] [place] [address], [place] [address] Jul, 2014 [facility] [address] [id number] [address] [place] [address], [place] [address] Jul, 2014 [facility] [address] [id number] [address] [place] [address], [place] [address] Jul, 2014 [facility] [address] [id number] [address] [place] [address], [place] [address] Jul, 2014 [facility] [address] [id number] [address] [place] [address], [place] [address] Jul, 2014 [facility] [address] [id number] [address] [place] [address], [place] [address] Jul, [facility] [address] [id number] [address] [place] [address], [place] [address] Jul, 2014 [facility] [address] [id number] [address] [place] [address], [place] [address] Jul, [facility] [address] [id number] [address] [place] [address], [place] [address] Jul, [facility] [address] [id number] [address] [place] [address], [place] [address] Jun, [facility] [address] [id number] [address] [place] [address], [place] [address] Jun, [facility] [address] [id number] [address] [place] [address], [place] [address] Jun, [facility] [address] [id number] [address] [place] [address], [place] [address] Jun, [facility] [address] [id number] [address] [place] [address], [place] [address] Jun, [facility] [address] [id number] [address] [place] [address], [place] [address] Jun, [facility] [address] [id number] [address] [place] [address], [place] [address] May, [facility] [address] [id number] [address] [place] [address], [place] [address] May, [facility] [address] [id number] [address] [place] [address], [place] [address] May, [facility] [address] [id number] [address] [place] [address], [place] [address] May, [facility] [address] [id number] [address] [place] [address], [place] [address] May, [facility] [address] [id number] [address] [place] [address], [place] [address] May, [facility] [address] [id number] [address] [place] [address], [place] [address] Apr, [facility] [address] [id number] [address] [place] [address], [place] [address] Apr, [facility] [address] [id number] [address] [place] [address], [place] [address] Apr, [facility] [address] [id number] [address] [place] [address], [place] [address] Apr, [facility] [address] [id number] [address] [place] [address], [place] [address] Apr, [facility] [address] [id number] [address] [place] [address], [place] [address] Apr, [facility] [address] [id number] [address] [place] [address], [place] [address] Mar, [facility] [address] [id number] [address] [place] [address], [place] [address] Mar, [facility] [address] [id number] [address] [place] [address], [place] [address] Mar, [facility] [address] [id number] [address] [place] [address], [place] [address] Mar, [facility] [address] [id number] [address] [place] [address], [place] [address] Mar, [facility] [address] [id number] [address] [place] [address], [place] [address] Mar, [facility] [address] [id number] [address] [place] [address], [place] [address] Mar, [facility] [address] [id number] [address] [place] [address], [place] [address] Mar, [facility] [address] [id number] [address] [place] [address], [place] [address] Mar, [facility] [address] [id number] [address] [place] [address], [place] [address] Mar, [facility] [address] [id number] [address] [place] [address], [place] [address] Mar, [facility] [address] [id number] [address] [place] [address], [place] [address] Mar, [facility] [address] [id number] [address] [place] [address], [place] [address] 30 Feb, 2013 [facility] [address] [id number] [address] [place] [address], [place] [address] 29 Feb, 2013 [facility] [address] [address] [id number] [address] [place] [address], [place] [address] 29 Feb, 2013 [facility] [address] [id number] [address] [place] [address], [place] [address] 23 Feb, 2013 [facility] [address] [id number] [address] [place] [address], [place] [address] 23 Feb, 2013 [facility] [address] [id number] [address] [place] [address], [place] [address] 08 Feb, 2013 [facility] [address] [id number] [address] [place] [address], [place] [address] 08 Feb, 2013 [facility] [address] [id number] [address] [place] [address], [place] [address] Jan, [facility] [address] [id number] [address] [place] [address] Jan, [facility] [address] [id number] [facility] [place] [address] Jan, [facility] [address] [id number] [address] [place] [address], [place] [address] Dec, [facility] [address] [id number] [address] [place] [address], [place] [address] Dec, [facility] [address] [id number] [address] [place] [address], [place] [address] Dec, [facility] [address] [id number] [address] [place] [address], [place] [address] Dec, [facility] [address] [id number] [address] [place] [address], [place] [address] Sep, [facility] [address] [id number] [address] [place] [address], [place] [address] Sep, [facility] [address] [id number] [address] [place] [address], [place] [address] Sep, [facility] [address] [id number] [address] [place] [address], [place] [address] Sep, [facility] [address] [id number] [address] [place] [address], [place] [address] Sep, [facility] [address] [id number] [address] [place] [address], [place] [address] Sep, [facility] [address] [id number] [address] [place] [address], [place] [address] Sep, [facility] [address] [id number] [address] [place] [address], [place] [address] Sep, [facility] [address] [id number] [address] [place] [address], [place] [address] Aug, [facility] [address] [id number] [address] [place] [address], [place] [address] Aug, [facility] [address] [id number] [address] [place] [address], [place] [address] May, [facility] [address] [id number] [address] [place] [address], [place] [address] May, [facility] [address] [id number] [address] [place] [address], [place] [address] Apr, [facility] [address] [id number] [address] [place] [address], [place] [address] Apr, [facility] [address] [id number] [address] [place] [address], [place] [address] Apr, [facility] [address] [id number] [address] [place] [address], [place] [address] Apr, [facility] [address] [id number] [address] [place] [address], [place] [address] Apr, [facility] [address] [id number] [address] [place] [address], [place] [address] Apr, [facility] [address] [id number] [address] [place] [address], [place] [address] 18 May, 2012 [facility] [address] [id number] [address] [place] [address], [place] [address] 18 May, 2012 [facility] [address] [id number] [address] [place] [address], [place] [address] 15 May, 2012 [facility] [address] [id number] [address] [place] [address], [place] [address] 15 May, 2012 [facility] [address] [id number] [address] [place] [address], [place] [address] 13 May, 2012 [facility] [address] [id number] [address] [place] [address], [place] [address] 13 May, 2012 [facility] [address] [id number] [address] [place] [address], [place] [address] 13 Apr, 2012 [facility] [address] [id number] [address] [place] [address] [address] Apr, [facility] [address] [id number] [address] [place] [address], [place] [address] Apr, [facility] [address] [id number] [address] [place] [address], [place] [address] Apr, [facility] [address] [id number] [address] [place] [address], [place] [address] Apr, [facility] [address] [id number] [address] [place] [address], [place] [address] Apr, [facility] [address] [id number] [address] [place] [address], [place] [address] Apr, [facility] [address] [id number] [address] [place] [address], [place] [address] Apr, [facility] [address] [id number] [address] [place] [address], [place] [address] Apr, [facility] [address] [id number] [address] [place] [address], [place] [address] Apr, [facility] [address] [id number] [address] [place] [address], [place] [address] Mar, [facility] [address] [id number] [address] [place] [address] Mar, [facility] [address] [id number] [address] [place] [address] Mar, [facility] [address] [id number] [address] [place] [address] Mar, [facility] [address] [id number] [address] [place] [address] Mar, [facility] [address] [id number] [address] [place] [address] Mar, [facility] [address] [id number] [address] [place] [address] Mar, [facility] [address] [id number] [address] [place] [address], [place] [address] Mar, [facility] [address] [id number] [address] [place] [address], [place] [address] Mar, [facility] [address] [id number] [address] [place] [address], [place] [address] 25 Feb, 2012 [facility] [address] [id number] [address] [place] [address], [place] [address] 16 Feb, 2012 [facility] [address] [id number] [address] [place] [address], [place] [address] 11 Feb, 2012 [facility] [address] [id number] [address] [place] [address], [place] [address] Jan, [facility] [address] [id number] [address] [place] [address], [place] [address] Jan, [facility] [address] [id number] [address] [place] [address], [place] [address] Jan, [facility] [address] [id number] [address] [place] [address], [place] [address] Jan, [facility] [address] [id number] [address] [place] [address], [place] [address] Jan, [facility] [address] [id number] [address] [place] [address], [place] [address] Jan, [facility] [address] [id number] [address] [place] [address], [place] [address] Jan, [facility] [address] [id number] [address] [place] [address], [place] [address] Jan, [facility] [address] [id number] [address] [place] [address], [place] [address] Jan, [facility] [address] [id number] [address] [place] [address], [place] [address] Jan, [facility] [address] [id number] [address] [place] [address], [place] [address] Dec, [facility] [address] [id number] [address] [place] [address], [place] [address] Dec, [facility] [address] [id number] [address] [place] [address], [place] [address] Dec, [facility] [address] [id number] [address] [place] [address], [place] [address] Dec, [facility] [address] [id number] [address] [place] [address], [place] [address] Nov, [facility] [address] [id number] [address] [place] [address], [place] [address] Nov, [facility] [address] [id number] [address] [place] [address], [place] [address] Nov, [facility] [address] [id number] [address] [place] [address], [place] [address] October, [facility] [address] [id number] [address] [place] [address], [place] [address] October, [facility] [address] [id number] [address] [place] [address], [place] [address] October, [facility] [address] [id number] [address] [place] [address], [place] [address] October, [facility] [address] [id number] [address] [place] [address], [place] [address] October, [facility] [address] [id number] [address] [place] [address], [place] [address] October, [facility] [address] [id number] [address] [place] [address], [place] [address] Aug, [facility] [address] [id number] [address] [place] [address], [place] [address] Mar, [facility] [address] [id number] [address] [place] [address], [place] [address] 16 Nov, 2010 [facility] [address] [id number] [address] [address] May, [facility] [address] [facility] [place] [id number] [address] [place] [address] May, [facility] [address] [facility] [place] [id number] [address] [place] [address] Apr, [facility] [address] [facility] [place] [id number] [address] [place] [address] Mar, [facility] [address] [facility] [place] [id number] [address] [place] [address] Mar, IMMUNIZATIONS No Known Immunizations SOCIAL HISTORY Never Assessed REASON FOR VISIT f/u PLAN OF CARE Activity Details Follow Up 1 Week Reason: F/U VITAL SIGNS MEDICATIONS Unknown Medications RESULTS No Results PROCEDURES Procedure Date Ordered Result Body Site [facility] VISIT MENTAL HEALTH ESTAB PT November 21, 2017 Psychotherapy, patient &/family, 45 minutes, established pat ient November 21, 2017 visit needs to be added to the same day medical November 21, 2017 INSTRUCTIONS MEDICATIONS ADMINISTERED No Known Medications MEDICAL (GENERAL) HISTORY Type Description Date Medical History Severe spinal stenosis [facility] cervical spine CT and MRI done [...]
--- OUTSIDE RECORDS SUMMARY | 2019-06-19 05:34 | XMS REPORT ---
Author Author Sydnie HANCOCK [facility] Address [address] [place] [address] Care Team Providers Care Organic Extractions Technician Name Role Phone NAHOMY HANCOCK Unavailable PROBLEMS Type Condition ICD9-CM Code UDE17-XR Code Onset Dates Condition S tatus SNOMED Code Problem Hormone replacement therapy Z79.890 Ac tive 302184725 Problem Abnormal CT scan, head R93.0 Active 877206733 Problem Sensorineural hearing loss (SNHL) of both ears H90 .3 Active 571545612 Problem History of colon polyps Z86.010 Active 651422158 Problem Bruising, spontaneous R23.3 Active 490168636 Problem Generalized anxiety disorder F41.1 A ctive 71335577 Problem Arthralgia of hip, unspecified laterality M25.559 Active 91427062 Problem Hematuria, unspecified type R31.9 Ac tive 80787633 Problem Imbalance R26.89 Active 194975971 Problem Hammer toe of right foot M20.41 Activ e 016645861 Problem Plantar wart of right foot B07.0 Act mitchell [id number] Problem Sciatica of left side M54.32 Active 59707704 Problem Hyperlipidemia, unspecified hyperlipidemia type E7 8.5 Active 40205111 Problem Hypertension I10 Active 0448258 3 Problem Night sweats R61 Active 2503002 0 Problem Fibromyalgia M79.7 Active 5803645 7 Problem Major depressive disorder, recurrent episode, moderate F33.1 Active 549980256 Problem Acute left-sided low back pain with left-sided sciatica M54.42 Active 199489146 Problem Bladder spasm N32.89 Active 267995 006 Problem Gastritis without bleeding, unspecified chronicity, unspecified gastritis type K29.70 Active 364978815 Problem Bipolar 1 disorder, mixed F31.60 Acti ve 41255426 Problem Grief F43.20 Active 32111658 Problem Other chronic pain G89.29 Active 8 1227120 Problem Allergic rhinitis J30.9 Active 61 113394 Problem Hot flashes due to menopause N95.1 A ctive 805574288 Problem Ataxia R27.0 Active 08122019 Problem Hearing loss, unspecified laterality H91.90 Active 78770422 ALLERGIES Substance Reaction Event Type Date Status Morphine Sulfate Unknown Drug Allergy October, Active Iodine Unknown Drug Allergy October, Active Lyrica 75 Mg Capsule "felt weird" Non Drug Allergy October, Act mitchell ENCOUNTERS Encounter Location Date Diagnosis [facility] [address] [facility] [id number] [address] [place] [phone] Mar, [facility] [address] [facility] [id number] [address] [place] [phone] Feb, [facility] [address] [facility] [id number] [address] [place] [phone] Feb, [facility] [address] [place] [id number] [address] [place] [phone] Jan, [facility] [address] [facility] [id number] [address] [place] [phone] Jan, [facility] [address] [place] [id number] [address] [place] [phone] Jan, Bipolar 1 disorder, mixed F3 1.60 [facility] [address] [facility] [id number] [address] [place] [phone] Jan, Bipolar 1 disorder, mixed F3 1.60 [facility] [address] [facility] [id number] [address] [place] [phone] Jan, Bipolar 1 disorder, mixed F3 1.60 [facility] [address] [facility] [id number] [address] [place] [phone] Dec, Bipolar 1 disorder, mixed F3 1.60 ; Generalized anxiety disorder F41.1 and Other fpc (current) drug therapy Z79.899 [facility] [address] [facility] [id number] [address] [place] [phone] Dec, Other fpc (current) dr bin therapy Z79.899 [facility] [address] [facility] [id number] [address] [place] [phone] Dec, Bipolar 1 disorder, mixed F3 1.60 [facility] [address] [facility] [id number] [address] [place] [phone] Dec, Bipolar 1 disorder, mixed F3 1.60 [facility] [address] [facility] [id number] [address] [place] [phone] Nov, Bipolar 1 disorder, mixed F3 1.60 [facility] [address] [facility] [id number] [address] [place] [phone] Nov, Bipolar 1 disorder, mixed F3 1.60 [facility] [address] [facility] [id number] [address] [place] [phone] Nov, Bipolar 1 disorder, mixed F3 1.60 [facility] [address] [facility] [id number] [address] [place] [phone] Nov, Allergic rhinitis J30.9 [facility] [address] [facility] [id number] [address] [place] [phone] Nov, Allergic rhinitis J30.9 [facility] [address] [facility] [id number] [address] [place] [phone] Nov, [facility] [address] [facility] [id number] [address] [place] [phone] Nov, Bipolar 1 disorder, mixed F3 1.60 [facility] [address] [facility] [id number] [address] [place] [phone] Nov, Fibromyalgia M79.7 and Aller gic rhinitis J30.9 [facility] [address] [facility] [id number] [address] [place] [id number] October, Bipolar 1 disorder, mixed F3 1.60 [facility] [address] [facility] [id number] [address] [place] [phone] October, Acute nasopharyngitis J00 [facility] [address] [id number] [address] [place] [phone] October, Bitten or stung by nonvenomo us insect and other nonvenomous arthropods, initial encounter W57.XXXA and Insect bite (nonvenomous) of abdominal wall, initial encounter S30.861A [facility] [address] [facility] [id number] [address] [place] [phone] October, Insect bite (nonvenomous) of abdominal wall, initial encounter S30.861A ; Bitten or stung by nonvenomous insect and other nonvenomous arthropods, initial encounter W57.XXXA ; Allergic rhinitis J30.9 and Low back pain M54.5 [facility] [address] [facility] [id number] [address] [place] [phone] October, Bipolar 1 disorder, mixed F3 1.60 [facility] [address] [place] [id number] [address] [place] [phone] October, [facility] [address] [facility] [id number] [address] [place] [phone] October, [facility] [address] [facility] [id number] [address] [place] [phone] October, Bipolar 1 disorder, mixed F3 1.60 [facility] [address] [facility] [id number] [address] [place] [phone] Sep, Bipolar 1 disorder, mixed F3 1.60 [facility] [address] [facility] [id number] [address] [place] [phone] Sep, Other chronic pain G89.29 [facility] [address] [facility] [id number] [address] [place] [phone] Sep, [facility] [address] [facility] [id number] [address] [place] [phone] Sep, Bipolar 1 disorder, mixed F3 1.60 [facility] [address] [facility] [id number] [address] [place] [phone] Sep, Allergic rhinitis J30.9 and Sciatica of left side M54.32 [facility] [address] [facility] [id number] [address] [place] [phone] Sep, Bipolar 1 disorder, mixed F3 1.60 [facility] [address] [facility] [id number] [address] [place] [phone] Sep, Bipolar 1 disorder, mixed F3 1.60 and Generalized anxiety disorder F41.1 [facility] [address] [facility] [id number] [address] [place] [phone] Aug, [facility] [address] [id number] [address] [place] [phone] Aug, Bipolar 1 disorder, mixed F3 1.60 [facility] [address] [facility] [id number] [address] [place] [phone] Aug, Bipolar 1 disorder, mixed F3 1.60 [facility] [address] [place] [id number] [address] [place] [phone] Aug, [facility] [address] [facility] [id number] [address] [place] [phone] Aug, Generalized anxiety disorder F41.1 [facility] [address] [facility] [id number] [address] [place] [phone] Aug, Bipolar 1 disorder, mixed F3 1.60 [facility] [address] [facility] [id number] [address] [place] [phone] Aug, Plantar wart of right foot B 07.0 [facility] [address] [facility] [id number] [address] [place] [phone] Aug, Bipolar 1 disorder, mixed F3 1.60 [facility] [address] [facility] [id number] [address] [place] [phone] Jul, Bipolar 1 disorder, mixed F3 1.60 [facility] [address] [facility] [id number] [address] [place] [phone] Jul, [facility] [address] [place] [id number] [address] [place] [phone] 14 Jul, 2017 Bipolar 1 disorder, mixed F3 1.60 [facility] [address] [place] [id number] [address] [place] [phone] Jul, Generalized anxiety disorder F41.1 [facility] [address] [place] [id number] [address] [place] [id number] Jul, Bipolar 1 disorder, mixed F3 1.60 [facility] [address] [phone] Jul, Acute left-sided low back pa in with left-sided sciatica M54.42 [facility] [address] [phone] Jul, Coccydynia M53.3 [facility] [address] [place] [id number] [address] [place] [id number] Jun, Bipolar 1 disorder, mixed F3 1.60 [facility] [address] [place] [id number] [address] [place] [phone] Jun, Acute nasopharyngitis J00 [facility] [address] [place] [id number] [place] [phone] Jun, Bipolar 1 disorder, mixed F3 1.60 [facility] [address] [place] [id number] [address] [place] [phone] Jun, Fibromyalgia M79.7 [facility] [address] [place] [id number] [address] [place] [phone] Jun, Bipolar 1 disorder, mixed F3 1.60 [facility] [address] [place] [id number] [address] [place] [phone] Jun, Fibromyalgia M79.7 and Bipol ar 1 disorder, mixed F31.60 [facility] [address] [facility] [id number] [address] [place] [phone] May, Bipolar 1 disorder, mixed F3 1.60 ; Generalized anxiety disorder F41.1 and Other fpc (current) drug therapy Z79.899 [facility] [address] [place] [id number] [address] [place] [id number] May, Bipolar 1 disorder, mixed F3 1.60 [facility] [address] [place] [id number] [address] [place] [phone] 14 May, 2017 Cough R05 and Body aches R52 [facility] [address] [place] [id number] [address] [place] [phone] 10 May, 2017 Bladder spasm N32.89 [address] te cystitis without hematuria N30.00 [place] [address] [place] [id number] [place] [phone] 07 May, 2017 Bipolar 1 disorder, mixed F3 1.60 [place] [address] [place] [id number] [place] [phone] 30 Apr, 2017 [place] [address] [address] Apr, Major depressive disorder, r ecurrent episode, moderate F33.1 and Encounter for immunization Z23 [place] [address] [address] Apr, Bipolar 1 disorder, mixed F3 1.60 [place] [id number] [place] [id number] [address] [place] [phone] Apr, Bipolar 1 disorder, mixed F3 1.60 [place] [id number] [place] [phone] 16 Apr, 2017 Bipolar 1 disorder, mixed F3 1.60 [place] [id number] [place] [id number] [address] [place] [phone] 13 Apr, 2017 Yeast vaginitis B37.3 [place] [address] [place] [id number] [address] [place] [phone] 09 Apr, 2017 Bipolar 1 disorder, mixed F3 1.60 [facility] [address] [place] [id number] [address] [place] [phone] Apr, Cellulitis L03.[address] for immunization Z23 [facility] [address] [facility] [id number] [address] [place] [id number] Apr, Bipolar 1 disorder, mixed F3 1.60 [facility] [address] [facility] [id number] [address] [place] [address] Mar, Bipolar 1 disorder, mixed F3 1.60 [facility] [address] [place] [id number] [address] [place] [address] Mar, Bipolar 1 disorder, mixed F3 1.60 [facility] [address] [place] [id number] [address] [place], [place] [id number] Mar, Imbalance R26.[address] for immunization Z23 [facility] [address] [place] [id number] [address] [place], [place] [address] Mar, Generalized anxiety disorder F41.1 [facility] [address] [place] [id number] [address] [place] [phone] Mar, Bipolar 1 disorder, mixed F3 1.60 [facility] [address] [place] [id number] [address] [place] [phone] Mar, Generalized anxiety disorder F41.1 [facility] [address] [place] [id number] [address] [place] [id number] Mar, Bipolar 1 disorder, mixed F3 1.60 [facility] [address] [place] [id number] [address] [place], [place] [address] Mar, Bipolar 1 disorder, mixed F3 1.60 [facility] [address] [place] [id number] [address] [place] [phone] Feb, Bipolar 1 disorder, mixed F3 1.60 [facility] [address] [place] [id number] [address] [place], [place] [address] Feb, Bipolar 1 disorder, mixed F3 1.60 and Generalized anxiety disorder F41.1 [facility] [address] [place] [id number] [address] [place] [address] Feb, Gastritis without bleeding, unspecified chronicity, unspecified gastritis type K29.70 ; Hammer toe of right foot M20.41 and Other viral warts B07.8 [place] [address] [facility] [id number] [address] [place] [id number] Feb, Bipolar 1 disorder, mixed F3 1.60 [place] [address] [place] [id number] [address] [place] [phone] 13 Feb, 2017 Bipolar 1 disorder, mixed F3 1.60 [place] [address] [place] [id number] [address] [place] [phone] 05 Feb, 2017 Bipolar 1 disorder, mixed F3 1.60 [place] [address] [place] [id number] [place] [phone] Jan, Encounter for screening mamm ogram for breast cancer Z12.31 ; Other viral warts B07.8 and Allergic rhinitis J30.9 [place] [address] [place] [id number] [address] [place] [phone] Jan, Bipolar 1 disorder, mixed F3 1.60 [place] [address] [place] [id number] [address] [place] [phone] Jan, Bipolar 1 disorder, mixed F3 1.60 [place] [address] [place] [id number] [address] [place] [address] Jan, [place] [address] [place] [id number] [address] [place] [address] Jan, Bipolar 1 disorder, mixed F3 1.60 [place] [address] [place] [id number] [address] [place] [phone] Jan, Bipolar 1 disorder, mixed F3 1.60 [place] [address] [place] [id number] [address] [place] [phone] 02 Jan, 2017 Allergic rhinitis J30.9 ; He maturia R31.9 and Colon cancer screening Z12.11 [place] [address] [place] [id number] [address] [place] [phone] Dec, Bipolar 1 disorder, mixed F3 1.60 [facility] [address] [facility] [id number] [address] [place] [phone] Dec, Bipolar 1 disorder, mixed F3 1.60 ; Generalized anxiety disorder F41.1 and Other fpc (current) drug therapy Z79.899 [facility] [address] [id number] [address] [place] [id number] Dec, Bipolar 1 disorder, mixed F3 1.60 [facility] [address] [id number] [address] [place] [phone] Dec, Bipolar 1 disorder, mixed F3 1.60 [facility] [address] [facility] [id number] [address] [place] [phone] Dec, Bipolar 1 disorder, mixed F3 1.60 [facility] [address] [facility] [id number] [address] [place] [phone] Dec, Low back pain M54.5 and Recu rrent urinary tract infection N39.0 [facility] [address] [facility] [id number] [address] [place] [phone] Nov, Bipolar 1 disorder, mixed F3 1.60 [facility] [address] [facility] [id number] [address] [place] [phone] Nov, Bipolar 1 disorder, mixed F3 1.60 [facility] [address] [facility] [id number] [address] [place] [phone] Nov, Bipolar 1 disorder, mixed F3 1.60 [facility] [address] [facility] [id number] [address] [place] [id number] Nov, Bipolar 1 disorder, mixed F3 1.60 [facility] [address] [facility] [id number] [address] [place] [phone] Nov, [facility] [address] [facility] [id number] [address] [place] [address] Nov, Anesthesia of skin R20.0 ; F requent UTI N39.0 ; Tobacco abuse Z72.0 and Colon cancer screening Z12.11 [place] [id number] [place] [id number] [address] [place] [phone] Nov, Bipolar 1 disorder, mixed F3 1.60 [place] [address] [place] [id number] [address] [place] [id number] October, Bipolar 1 disorder, mixed F3 1.60 [place] [address] [place] [id number] [address] [place] [phone] October, Bipolar 1 disorder, mixed F3 1.60 [place] [address] [place] [id number] [address] [place] [phone] October, Bipolar 1 disorder, mixed F3 1.60 [place] [address] [place] [id number] [address] [place] [id number] October, Bipolar 1 disorder, mixed F3 1.60 [place] [address] [place] [id number] [address] [place] [id number] October, Bipolar 1 disorder, mixed F3 1.60 [place] [address] [place] [id number] [place] [phone] October, Cervicalgia M54.2 and Bipola r 1 disorder, mixed F31.60 [place] [address] [place] [id number] [address] [place] [address] October, Hypertension I10 ; Hyperlipi demia, unspecified hyperlipidemia type E78.5 and Family history of thyroid disease Z83.49 [place] [address] [place] [id number] [address] [place] [address] October, [place] [address] [place] [id number] [place] [address] October, Hypertension I10 ; Hyperlipi demia, unspecified hyperlipidemia type E78.5 and Family history of thyroid problem Z83.49 [place] [address] [place] [id number] [address] [place] [id number] October, Bipolar 1 disorder, mixed F3 1.60 [facility] [address] [facility] [id number] [address] [place] [phone] Sep, Bipolar 1 disorder, mixed F3 1.60 [facility] [address] [facility] [id number] [address] [place], [place] [address] Sep, Bipolar 1 disorder, mixed F3 1.60 [facility] [address] [facility] [id number] [address] [place] [phone] Sep, Bipolar 1 disorder, mixed F3 1.60 [facility] [address] [facility] [id number] [address] [place] [id number] Sep, History of colon polyps Z86. 010 and Hematochezia K92.1 [facility] [address] [facility] [id number] [address] [place] [phone] Sep, Major depressive disorder, r ecurrent episode, moderate F33.1 [facility] [address] [facility] [id number] [address] [place] [phone] Sep, Bipolar 1 disorder, mixed F3 1.60 [facility] [address] [facility] [id number] [address] [place] [id number] Aug, Hot flashes due to menopause N95.1 [facility] [address] [facility] [id number] [address] [place] [phone] Aug, Bipolar 1 disorder, mixed F3 1.60 [facility] [address] [facility] [id number] [address] [place] [phone] Aug, [facility] [address] [facility] [id number] [address] [place] [phone] Aug, Bipolar 1 disorder, mixed F3 1.60 [facility] [address] [facility] [id number] [address] [place] [id number] Aug, Bipolar 1 disorder, mixed F3 1.60 [facility] [address] [facility] [id number] [address] [place] [phone] Aug, Hot flashes due to menopause N95.1 ; Cervicalgia M54.2 and Ataxia R27.0 [place] [address] Jul, Bipolar 1 disorder, mixed F3 1.60 [place] [address] Jul, Bipolar 1 disorder, mixed F3 1.60 [place] [address] Jul, Bipolar 1 disorder, mixed F3 1.60 [place] [address] Jul, Bipolar 1 disorder, mixed F3 1.60 [place] [address] Jul, Bipolar 1 disorder, mixed F3 1.60 [place] [address] Jul, Cervicalgia M54.2 ; Tremor R 25.1 ; Hearing abnormally acute, unspecified laterality H93.239 ; Alopecia L65.9 ; Encounter for immunization Z23 and Family history of thyroid disease Z83.49 [place] [address] [id number] Jul, Bipolar 1 disorder, mixed F3 1.60 [place] [address] [place] [address] Jun, [place] [address] Jun, Hearing disorder, unspecifie d laterality H93.299 [place] [address] [place] [address] Jun, Bipolar 1 disorder, mixed F3 1.60 [place] [address] [address] Jun, Bipolar 1 disorder, mixed F3 1.60 [facility] [address] [id number] [address] [place] [address] Jun, Allergic rhinitis J30.9 [facility] [address] [id number] [address] [place] [address] Jun, Bipolar 1 disorder, mixed F3 1.60 [facility] [address] [id number] [address] [place] [phone] Jun, Bipolar 1 disorder, mixed F3 1.60 [facility] [address] [id number] [address] [place] [id number] Jun, Allergic rhinitis J30.9 [facility] [address] [id number] [address] [place] [address] Jun, Allergic rhinitis J30.9 [facility] [address] [facility] [id number] [address] [place] [address] Jun, Bipolar 1 disorder, mixed F3 1.60 [facility] [address] [id number] [address] [place] [address] May, Bipolar 1 disorder, mixed F3 1.60 [facility] [address] [id number] [address] [place] [address] May, Bipolar 1 disorder, mixed F3 1.60 [facility] [address] [facility] [id number] [address] [place] [phone] May, [facility] [address] [facility] [id number] [address] [place] [address] May, Bipolar 1 disorder, mixed F3 1.60 [facility] [address] [id number] [address] [place] [id number] May, Bipolar 1 disorder, mixed F3 1.60 [facility] [address] [facility] [id number] [address] [place] [phone] May, [facility] [address] [facility] [id number] [address] [place] [address] May, [facility] [address] [facility] [id number] [address] [place] [address] May, [facility] [address] [facility] [id number] [address] [place] [address] May, Abdominal pain, unspecified location R10.9 [facility] [address] [facility] [id number] [address] [place] [address] May, [facility] [address] [place] [id number] [address] [place] [address] Apr, Hematuria R31.9 ; Ataxia R27 .0 and Hearing loss, unspecified laterality H91.90 [facility] [address] [facility] [id number] [address] [place] [address] Apr, Bipolar 1 disorder, mixed F3 1.60 [facility] [address] [facility] [id number] [address] [place] [address] Apr, Acute effusion of both middl e ears H65.193 [facility] [address] [facility] [id number] [address] [place] [address] Apr, Hematuria R31.9 and Pyelonep hritis N12 [facility] [address] [facility] [id number] [address] [place] [address] Apr, [facility] [address] [place] [id number] [address] [place] [address] Mar, Bipolar 1 disorder, mixed F3 1.60 [facility] [address] [facility] [id number] [address] [place] [phone] Mar, [facility] [address] [facility] [id number] [address] [place] [address] Mar, Bipolar 1 disorder, mixed F3 1.60 [facility] [address] [facility] [id number] [address] [place] [address] Mar, Bipolar 1 disorder, mixed F3 1.60 [facility] [address] [place] [id number] [address] [place] [address] Mar, Encounter for immunization Z 23 and Gastritis without bleeding, unspecified chronicity, unspecified gastritis type K29.70 [place] [address] [place] [id number] [address] [place] [address] Mar, Bipolar 1 disorder, mixed F3 1.60 and Grief F43.20 [place] [address] [place] [id number] Mar, Gastritis without bleeding, unspecified chronicity, unspecified gastritis type K29.70 [place] [address] [place] [id number] [address] [place] [id number] Mar, Bipolar 1 disorder, mixed F3 1.60 [place] [address] [place] [address] Mar, Gastritis without bleeding, unspecified chronicity, unspecified gastritis type K29.70 [place] [address] [place] [address] Mar, [place] [address] [place] [address] Feb, Bipolar 1 disorder, mixed F3 1.60 [place] [address] [place] [id number] [address] [place] [address] Feb, Bipolar 1 disorder, mixed F3 1.60 and Grief F43.20 [place] [address] [place] [id number] [address] [place] [address] Feb, Gastritis without bleeding, unspecified chronicity, unspecified gastritis type K29.70 [place] [address] [place] [id number] [address] [place] [id number] 14 Feb, 2016 Bipolar 1 disorder, mixed F3 1.60 [facility] [address] [place] [id number] [address] [place] [id number] 09 Feb, 2016 Gastroesophageal reflux dise ase, esophagitis presence not specified K21.9 [place] [address] [place] [id number] [address] [place] [address] Jan, Bipolar 1 disorder, mixed F3 1.60 [facility] [address] [place] [id number] [address] [place] [address] Jan, Bipolar 1 disorder, mixed F3 1.60 and Unsteady gait R26.81 [facility] [address] [place] [id number] [address] [place] [address] Jan, Bipolar 1 disorder, mixed F3 1.60 [facility] [address] [place] [id number] [place] [address] Jan, Bipolar 1 disorder, mixed F3 1.60 and Other fpc (current) drug therapy Z79.899 [place] [address] [address] Jan, Bipolar 1 disorder, mixed F3 1.60 [place] [address] [address] Jan, Bipolar 1 disorder, mixed F3 1.60 [place] [address] [place] [id number] [place] [address] Jan, Bipolar 1 disorder, mixed F3 1.60 ; Grief F43.20 and Other terminal carman (current) drug therapy Z79.899 [place] [address] [place] [id number] [address] [place] [address] Jan, Bipolar 1 disorder, mixed F3 1.60 [place] [address] [place] [id number] [address] [place] [address] Dec, [place] [address] [place] [id number] [address] [place] [address] Dec, Bipolar 1 disorder, mixed F3 1.60 ; Vitamin D deficiency, unspecified E55.9 ; H/O allergic rhinitis Z87.09 ; Other chronic pain G89.29 and Dorsalgia, unspecified M54.9 [place] [address] [place] [id number] [address] [place] [address] Dec, [place] [address] [id number] [address] [place] [address] Dec, Bipolar 1 disorder, mixed F3 1.60 [facility] [address] [id number] [address] [place] [address] Dec, Major depressive disorder, r ecurrent episode, moderate F33.1 [place] [address] [facility] [id number] [address] [place] [address] Dec, Major depressive disorder, r ecurrent episode, moderate F33.1 [place] [address] [facility] [id number] [address] [place] [address] Nov, [place] [address] [facility] [id number] [address] [place] [phone] Nov, Bipolar 1 disorder, mixed F3 1.60 [place] [address] [facility] [id number] [address] [place] [address] Nov, Major depressive disorder, r ecurrent episode, moderate F33.1 [place] [address] [facility] [id number] [address] [place] [address] Nov, Cervicalgia M54.2 ; Arthralg ia of hip, unspecified laterality M25.559 ; Allergic rhinitis J30.9 and Hormone replacement therapy Z79.890 [facility] [address] [facility] [id number] [address] [place] [address] Nov, Other seasonal allergic rhin itis J30.2 [facility] [address] [facility] [id number] [address] [place] [address] October, Major depressive disorder, r ecurrent episode, moderate F33.1 [facility] [address] [facility] [id number] [address] [place] [address] October, Major depressive disorder, r ecurrent episode, moderate F33.1 and Arthralgia of hip, unspecified laterality M25.559 [place] [address] [facility] [id number] [address] [place] [address] October, Grief F43.20 ; Hypertension I10 ; Hyperlipidemia, unspecified hyperlipidemia type E78.5 ; Other chronic pain G89.29 and Allergic rhinitis, unspecified allergic rhinitis type J30.9 [facility] [address] [facility] [id number] [address] [place] [address] October, Major depressive disorder, r ecurrent episode, moderate F33.1 [place] [address] [place] [id number] [address] [place] [address] Sep, Major depressive disorder, r ecurrent episode, moderate F33.1 [place] [address] [place] [id number] [address] [place] [address] Sep, [place] [address] [address] Sep, Major depressive disorder, r ecurrent episode, moderate F33.1 [place] [address] [address] Sep, Grief F43.20 [facility] [address] [place] [id number] [address] [place] [address] Aug, Major depressive disorder, r ecurrent episode, moderate F33.1 [place] [address] [address] Aug, Bipolar 1 disorder, mixed F3 1.60 [place] [address] [place] [address] Aug, Allergic rhinitis J30.9 ; Ce rvicalgia M54.2 and Low back pain M54.5 [facility] [address] [place] [id number] [address] [place] [address] Aug, Major depressive disorder, r ecurrent episode, moderate F33.1 [facility] [address] [place] [id number] [address] [place] [address] Aug, Sinusitis J32.9 and Tobacco 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 [facility] [address] [place] [id number] [address] [place] [address] Aug, [facility] [address] [id number] [address] [place] [address] Aug, Depressive disorder, not els ewhere classified F32.9 ; Hormone replacement therapy Z79.[address] scan, head R93.0 [facility] [address] [id number] [address] [place] [address] Aug, Major depressive disorder, r ecurrent episode, moderate F33.1 [facility] [address] [id number] [address] [place] [address] Jul, Major depressive disorder, r ecurrent episode, moderate F33.1 [facility] [address] [id number] [address] [place] [address] Jul, Abdominal pain R10.9 and Hyp ertension I10 [facility] [address] [id number] [address] [place] [phone] Jul, [facility] [address] [id number] [address] [place] [address] Jul, Major depressive disorder, r ecurrent episode, moderate F33.1 [facility] [address] [id number] [address] [place] [address] Jul, [facility] [address] [id number] [address] [place] [address] Jul, [facility] [address] [id number] [address] [place] [address] Jun, [facility] [address] [id number] [address] [place] [address] Jun, Depressive disorder, not els ewhere classified F32.9 [facility] [address] [id number] [address] [place] [address] Jun, [facility] [address] [facility] [id number] [address] [place] [address] Jun, [facility] [address] [id number] [address] [place] [address] Jun, Arthralgia of hip, unspecifi ed laterality M25.559 ; Bruising, spontaneous R23.3 and Night sweats R61 [facility] [address] [id number] [address] [place] [id number] Jun, [facility] [address] [id number] [address] [place] [address] Jun, [facility] [address] [id number] [address] [place] [address] May, [facility] [address] [id number] [address] [place] [address] May, Myalgia M79.1 and Screening, lipid Z13.220 [facility] [address] [facility] [id number] [address] [place] [address] Apr, Status post cervical spinal fusion Z98.1 ; Fibromyalgia M79.7 and Unsteady gait R26.81 [facility] [address] [id number] [address] [place] [phone] Nov, [facility] [address] [id number] [address] [place] [id number] Nov, [facility] [address] [id number] [address] [place] [id number] October, [facility] [address] [id number] [address] [place] [id number] October, [facility] [address] [id number] [address] [place] [id number] October, [facility] [address] [id number] [address] [place] [address] October, [facility] [address] [id number] [address] [place] [address] October, [facility] [address] [facility] [id number] [address] [place] [address] October, Dysuria 788.1 ; Nausea 787.0 2 and Urinary tract infection 599.0 [facility] [address] [id number] [address] [place] [id number] 14 Sep, 2014 [facility] [address] [id number] [address] [place] [id number] Sep, [facility] [address] [id number] [address] [place] [id number] Aug, [facility] [address] [id number] [address] [place] [id number] Aug, [facility] [address] [id number] [address] [place] [phone] Aug, [facility] [address] [id number] [address] [place] [phone] Aug, [facility] [address] [id number] [address] [place] [address] Aug, [facility] [address] [id number] [address] [place] [address] Aug, [facility] [address] [id number] [address] [place] [phone] Aug, [facility] [address] [id number] [address] [place] [id number] Aug, [facility] [address] [id number] [address] [place] [id number] 19 Aug, 2014 [facility] [address] [id number] [address] [place] [id number] 18 Aug, 2014 [facility] [address] [id number] [address] [place] [id number] 18 Aug, 2014 [facility] [address] [id number] [address] [place] [id number] 13 Aug, 2014 [facility] [address] [id number] [address] [place] [address], [place] [address] 13 Aug, 2014 [facility] [address] [id number] [address] [place] [address], [place] [address] Aug, [facility] [address] [id number] [address] [place] [address], [place] [address] Aug, [facility] [address] [id number] [address] [place] [address], [place] [address] Aug, 2014 [facility] [address] [id number] [address] [place] [address], [place] [address] Aug, 2014 [facility] [address] [id number] [address] [place] [address], [place] [address] 05 Aug, 2014 [facility] [address] [id number] [address] [place] [address], [place] [address] Aug, [facility] [address] [id number] [address] [place] [address], [place] [address] Aug, [facility] [address] [id number] [address] [place] [address], [place] [address] Aug, [facility] [address] [id number] [address] [place] [address], [place] [address] Aug, [facility] [address] [id number] [address] [place] [address], [place] [address] Jul, [facility] [address] [id number] [address] [place] [address], [place] [address] Jul, 2014 [facility] [address] [id number] [address] [place] [address], [place] [address] Jul, [facility] [address] [id number] [address] [place] [address], [place] [address] Jul, [facility] [address] [id number] [address] [place] [address], [place] [address] Jul, [facility] [address] [id number] [address] [place] [address], [place] [address] Jul, [facility] [address] [id number] [address] [place] [address], [place] [address] Jul, [facility] [address] [id number] [address] [place] [address], [place] [address] Jul, 2014 [facility] [address] [id number] [address] [place] [address], [place] [address] Jul, 2014 [facility] [address] [id number] [address] [place] [address], [place] [address] Jul, 2014 [facility] [address] [id number] [address] [place] [address], [place] [address] Jul, 2014 [facility] [address] [id number] [address] [place] [address], [place] [address] Jul, 2014 [facility] [address] [id number] [address] [place] [address], [place] [address] Jul, [facility] [address] [id number] [address] [place] [address], [place] [address] Jul, [facility] [address] [id number] [address] [place] [address], [place] [address] Jun, [facility] [address] [id number] [address] [place] [address], [place] [address] Jun, [facility] [address] [id number] [address] [place] [address], [place] [address] Jun, [facility] [address] [id number] [address] [place] [address], [place] [address] Jun, [facility] [address] [id number] [address] [place] [address], [place] [address] Jun, [facility] [address] [id number] [address] [place] [address], [place] [address] Jun, [facility] [address] [id number] [address] [place] [address], [place] [address] May, [facility] [address] [id number] [address] [place] [address], [place] [address] May, [facility] [address] [id number] [address] [place] [address], [place] [address] May, [facility] [address] [id number] [address] [place] [address], [place] [address] May, [facility] [address] [id number] [address] [place] [address], [place] [address] May, [facility] [address] [id number] [address] [place] [address], [place] [address] May, [facility] [address] [id number] [address] [place] [address], [place] [address] Apr, [facility] [address] [id number] [address] [place] [address], [place] [address] Apr, [facility] [address] [id number] [address] [place] [address], [place] [address] Apr, [facility] [address] [id number] [address] [place] [address], [place] [address] Apr, [facility] [address] [id number] [address] [place] [address], [place] [address] Apr, [facility] [address] [id number] [address] [place] [address], [place] [address] Apr, [facility] [address] [id number] [address] [place] [address], [place] [address] Mar, [facility] [address] [id number] [address] [place] [address], [place] [address] Mar, [facility] [address] [id number] [address] [place] [address], [place] [address] Mar, [facility] [address] [id number] [address] [place] [address], [place] [address] Mar, [facility] [address] [id number] [address] [place] [address], [place] [address] Mar, 2014 [facility] [address] [id number] [address] [place] [address], [place] [address] Mar, [facility] [address] [id number] [address] [place] [address], [place] [address] Mar, [facility] [address] [id number] [address] [place] [address], [place] [address] Mar, [facility] [address] [id number] [address] [place] [address], [place] [address] Mar, [facility] [address] [id number] [address] [place] [address], [place] [address] Mar, [facility] [address] [id number] [address] [place] [address], [place] [address] Mar, [facility] [address] [id number] [address] [place] [address], [place] [address] Mar, [facility] [address] [id number] [address] [place] [address], [place] [address] 30 Feb, 2013 [facility] [address] [id number] [address] [place] [address], [place] [address] 29 Feb, 2013 [facility] [address] [id number] [address] [place] [address], [place] [address] 29 Feb, 2013 [facility] [address] [id number] [address] [place] [address], [place] [address] 23 Feb, 2013 [facility] [address] [id number] [address] [place] [address], [place] [address] 23 Feb, 2013 [facility] [address] [id number] [address] [place] [address], [place] [address] 08 Feb, 2013 [facility] [address] [id number] [address] [place] [address], [place] [address] 08 Feb, 2013 [facility] [address] [id number] [address] [place] [address], [place] [address] Jan, [facility] [address] [id number] [facility] [place] [address] Jan, [facility] [address] [id number] [address] [place] [address], [place] [address] Jan, [facility] [address] [id number] [facility] [place] [address] Dec, [facility] [address] [id number] [address] [place] [address], [place] [address] Dec, [facility] [address] [id number] [address] [place] [address], [place] [address] Dec, [facility] [address] [id number] [address] [place] [address], [place] [address] Dec, [facility] [address] [id number] [address] [place] [address], [place] [address] Sep, [facility] [address] [id number] [address] [place] [address], [place] [address] Sep, [facility] [address] [id number] [address] [place] [address], [place] [address] Sep, [facility] [address] [id number] [address] [place] [address], [place] [address] Sep, [facility] [address] [id number] [address] [place] [address], [place] [address] Sep, [facility] [address] [id number] [address] [place] [address], [place] [address] Sep, [facility] [address] [id number] [address] [place] [address], [place] [address] Sep, [facility] [address] [id number] [address] [place] [address], [place] [address] Sep, [facility] [address] [id number] [address] [place] [address], [place] [address] Aug, [facility] [address] [id number] [address] [place] [address], [place] [address] Aug, [facility] [address] [id number] [address] [place] [address], [place] [address] May, [facility] [address] [id number] [address] [place] [address], [place] [address] May, [facility] [address] [id number] [address] [place] [address], [place] [address] Apr, [facility] [address] [id number] [address] [place] [address], [place] [address] Apr, [facility] [address] [id number] [address] [place] [address], [place] [address] Apr, [facility] [address] [id number] [address] [place] [address], [place] [address] Apr, [facility] [address] [id number] [address] [place] [address], [place] [address] Apr, [facility] [address] [id number] [address] [place] [address], [place] [address] Apr, [facility] [address] [id number] [address] [place] [address], [place] [address] May, [facility] [address] [id number] [address] [place] [address], [place] [address] 18 May, 2012 [facility] [address] [id number] [address] [place] [address], [place] [address] 15 May, 2012 [facility] [address] [id number] [address] [place] [address], [place] [address] 15 May, 2012 [facility] [address] [id number] [address] [place] [address], [place] [address] May, [facility] [address] [id number] [address] [place] [address], [place] [address] May, [facility] [address] [id number] [address] [place] [address], [place] [address] Apr, [facility] [address] [id number] [address] [place] [address] Apr, [facility] [address] [id number] [address] [place] [address], [place] [address] Apr, [facility] [address] [id number] [address] [place] [address] Apr, [facility] [address] [id number] [address] [place] [address], [place] [address] Apr, [facility] [address] [id number] [address] [place] [address] Apr, [facility] [address] [id number] [address] [place] [address], [place] [address] Apr, [facility] [address] [id number] [address] [place] [address] Apr, [facility] [address] [id number] [address] [place] [address] Apr, [facility] [address] [id number] [address] [place] [address] Apr, [facility] [address] [id number] [address] [place] [address] Mar, [facility] [address] [id number] [address] [place] [address] Mar, [facility] [address] [id number] [address] [place] [address] Mar, [facility] [address] [id number] [address] [place] [address] Mar, [facility] [address] [id number] [address] [place] [address] Mar, [facility] [address] [id number] [address] [place] [address] Mar, [facility] [address] [id number] [address] [place] [address] Mar, [facility] [address] [id number] [address] [place] [address], [place] [address] Mar, [facility] [address] [id number] [address] [place] [address], [place] [address] Mar, [facility] [address] [id number] [address] [place] [address], [place] [address] 25 Feb, 2012 [facility] [address] [id number] [address] [place] [address], [place] [address] 16 Feb, 2012 [facility] [address] [id number] [address] [place] [address], [place] [address] 11 Feb, 2012 [facility] [address] [id number] [address] [place] [address], [place] [address] Jan, [facility] [address] [id number] [address] [place] [address], [place] [address] Jan, [facility] [address] [id number] [address] [place] [address], [place] [address] Jan, [facility] [address] [id number] [address] [place] [address], [place] [address] Jan, [facility] [address] [id number] [address] [place] [address], [place] [address] Jan, [facility] [address] [id number] [address] [place] [address], [place] [address] Jan, [facility] [address] [id number] [address] [place] [address], [place] [address] Jan, [facility] [address] [id number] [address] [place] [address], [place] [address] Jan, [facility] [address] [id number] [address] [place] [address], [place] [address] Jan, [facility] [address] [id number] [address] [place] [address], [place] [address] Jan, [facility] [address] [id number] [address] [place] [address], [place] [address] Dec, [facility] [address] [id number] [address] [place] [address], [place] [address] Dec, [facility] [address] [id number] [address] [place] [address], [place] [address] Dec, [facility] [address] [id number] [address] [place] [address], [place] [address] Dec, [facility] [address] [id number] [address] [place] [address], [place] [address] Nov, [facility] [address] [id number] [address] [place] [address], [place] [address] Nov, [facility] [address] [id number] [address] [place] [address], [place] [address] Nov, [facility] [address] [id number] [address] [place] [address], [place] [address] October, [facility] [address] [id number] [address] [place] [address], [place] [address] October, [facility] [address] [id number] [address] [place] [address], [place] [address] October, [facility] [address] [id number] [address] [place] [address], [place] [address] October, [facility] [address] [id number] [address] [place] [address], [place] [address] October, [facility] [address] [id number] [address] [place] [address], [place] [address] October, [facility] [address] [id number] [address] [place] [address], [place] [address] Aug, [facility] [address] [id number] [address] [place] [address], [place] [address] Mar, [facility] [address] [id number] [address] [place] [address], [place] [address] 16 Nov, 2010 [facility] [address] [id number] [address] [place] [address] May, [facility] [address] [facility] [id number] [address] [place] [address] May, [facility] [address] [facility] [id number] [address] [place] [address] Apr, [facility] [address] [facility] [id number] [address] [place] [address] Mar, [facility] [address] [facility] [id number] [address] [place] [address] Mar, IMMUNIZATIONS No Known Immunizations SOCIAL HISTORY Never Assessed REASON FOR VISIT tick on the side and cannot remove, PT just noticed the tick on her left side to day when she was about to shower, PT is unsure of when it got there. -Joseph Giblert PLAN OF CARE Activity Details Follow Up prn Reason: Future/Pending Procedure FOREIGN BODY REMOVAL-SIMPLE VITAL SIGNS Height 64 in 2017-10-31 Weight 163.2 lbs 2017-10-31 Temperature 97.2 degrees Fahrenheit 2017-10-31 Heart Rate 100 bpm 2017-10-31 Respiratory Rate 20 2017-10-31 BMI 28.01 kg/m2 2017-10-31 Blood pressure systolic 125 mmHg 2017-10-31 Blood pressure diastolic 68 mmHg 2017-10-31 MEDICATIONS Medication Instructions Dosage Frequency Start Date End Date Duration S alexandr Montelukast Sodium 10 mg Orally Once a day 1 tablet in the evening 24h October, 90 days Active Probiotic Acidophilus Ac tive Nitrofurantoin Monohyd Macro 100 mg Orally Once a day 1 capsule with food 24h Active Melatonin 5 mg Orally Once a day 2 tablets 24h May, Active Cetirizine HCl 10 mg Orally Once a day 1 tablet 24h Jan, 7 Jan, 90 days Active Vagifem 10 MCG Vaginal Two times a Week 1 tablet 84 Active Tramadol HCl 50 MG Orally every 6 hrs 1 tablet as needed for severe pain 6h Jun, Not-Taking Gabapentin 100 mg Orally 3 times a day 1 capsule 8h 07 Jul, 2017 Active Oxybutynin Chloride ER 10 MG Orally Once a day 1 tablet 24h October, 30 day(s) Active Ibuprofen 600 MG Orally 4 times a day 1 tablet with food or milk as needed 6h 16 Sep, 2018 14 Aug, 2018 30 days Active Beclomethasone Dipropionate 80 MCG/ACT Nasally Once a day 2 puffs in each nostril 24h Sep, 30 day(s) Active Myrbetriq 50 MG Orally Once a day 1 tablet 24h Active Voltaren 1 % Transdermal 4 times a day on neck Active Estradiol 2 MG Orally Once a day 1 tablet 24h Active Depakote ER 500 mg Orally at bedtime 2 tabs 30 days Active Flunisolide 25 MCG/ACT (0.025%) Nasally Twice a day 2 sprays in each nostril 12h Sep, 30 day(s) Active Orally Once a day 1 capsule 24h Act mitchell Magnesium 500 MG Orally Once a day 1 tablet with a meal 24h Dec, Active D66-Rolcfs 1 MG Active Fetzima 120 mg Orally Once a day TAKE 1 CAPSULE BY MOUTH DAILY 24h 30 days Active Flonase 50 MCG/ACT Nasally twice a day 1 spray in each nostril 12h Jan, Active Lidocaine-Prilocaine 2.5-2.5 % Active Mucinex 600 MG Orally every 12 hrs 1 tablet as needed 12h Active HydrOXYzine HCl 10 mg Orally BID prn anxiety, MAX 45 tabs monthly 1 t ablet 30 days Active Pantoprazole Sodium 20 MG TAKE 1 TABLET BY MOUTH ONCE DAILY 90 Active Vitamin D3 2000 UNIT Orally Once a day as directed 24h Dec, Active Baclofen 20 mg Orally 2 times a day 1 tablet with food or milk 12h October, Feb, 30 days Active RESULTS No Results PROCEDURES Procedure Date Ordered Result Body Site REMOVE FOREIGN BODY October 31, 2017 [facility] VISIT ESTABLISHED PATIENT October 31, 2017 INSTRUCTIONS MEDICATIONS ADMINISTERED No Known [...]
--- OUTSIDE RECORDS SUMMARY | 2019-06-19 05:34 | XMS REPORT ---
Author Author Sydnie MONTERO Organization [facility] Address [address] [place] [address] Care Team Providers Care Oim Consultant Name Role Phone YAEL MONTERO Unavailable PROBLEMS Type Condition ICD9-CM Code SEX02-LD Code Onset Dates Condition S tatus SNOMED Code Problem Hormone replacement therapy Z79.890 Ac tive 295514600 Problem Abnormal CT scan, head R93.0 Active 383320299 Problem Sensorineural hearing loss (SNHL) of both ears H90 .3 Active 815430429 Problem History of colon polyps Z86.010 Active 427339749 Problem Bruising, spontaneous R23.3 Active 717520585 Problem Generalized anxiety disorder F41.1 A ctive 27206257 Problem Arthralgia of hip, unspecified laterality M25.559 Active 72907019 Problem Hematuria, unspecified type R31.9 Ac tive 11783957 Problem Imbalance R26.89 Active 870671216 Problem Hammer toe of right foot M20.41 Activ e 919091915 Problem Plantar wart of right foot B07.0 Act mitchell [id number] Problem Sciatica of left side M54.32 Active 67654122 Problem Hyperlipidemia, unspecified hyperlipidemia type E7 8.5 Active 05161173 Problem Hypertension I10 Active 3484756 3 Problem Night sweats R61 Active 9070173 0 Problem Fibromyalgia M79.7 Active 5346671 7 Problem Major depressive disorder, recurrent episode, moderate F33.1 Active 038517429 Problem Acute left-sided low back pain with left-sided sciatica M54.42 Active 363881505 Problem Bladder spasm N32.89 Active 136338 006 Problem Gastritis without bleeding, unspecified chronicity, unspecified gastritis type K29.70 Active 132711085 Problem Bipolar 1 disorder, mixed F31.60 Acti ve 13586545 Problem Grief F43.20 Active 74180663 Problem Other chronic pain G89.29 Active 8 0227518 Problem Allergic rhinitis J30.9 Active 61 830507 Problem Hot flashes due to menopause N95.1 A ctive 858164170 Problem Ataxia R27.0 Active 25699428 Problem Hearing loss, unspecified laterality H91.90 Active 09178716 ALLERGIES Substance Reaction Event Type Date Status Morphine Sulfate Unknown Drug Allergy October, Active Iodine Unknown Drug Allergy October, Active Lyrica 75 Mg Capsule "felt weird" Non Drug Allergy October, Act mitchlel ENCOUNTERS Encounter Location Date Diagnosis [facility] [address] [facility] [id number] [address] [place] [address] Mar, [facility] [address] [facility] [id number] [address] [place] [address] Feb, [facility] [address] [facility] [id number] [address] [place] [address] Feb, [facility] [address] [place] [id number] [address] [place] [address] Jan, [facility] [address] [facility] [id number] [address] [place] [address] Jan, [facility] [address] [facility] [id number] [address] [place] [address] Jan, Bipolar 1 disorder, mixed F3 1.60 [facility] [address] [facility] [id number] [address] [place] [address] Jan, Bipolar 1 disorder, mixed F3 1.60 [facility] [address] [facility] [id number] [address] [place] [address] Jan, Bipolar 1 disorder, mixed F3 1.60 [facility] [address] [facility] [id number] [address] [place] [address] Dec, Bipolar 1 disorder, mixed F3 1.60 ; Generalized anxiety disorder F41.1 and Other long term acute care registered nurse (current) drug therapy Z79.899 [facility] [address] [facility] [id number] [address] [place] [address] Dec, Other detention (current) dr bin therapy Z79.899 [facility] [address] [facility] [id number] [address] [place] [address] Dec, Bipolar 1 disorder, mixed F3 1.60 [facility] [address] [facility] [id number] [address] [place] [address] Dec, Bipolar 1 disorder, mixed F3 1.60 [facility] [address] [facility] [id number] [address] [place] [address] Nov, Bipolar 1 disorder, mixed F3 1.60 [facility] [address] [facility] [id number] [address] [place] [address] Nov, Bipolar 1 disorder, mixed F3 1.60 [facility] [address] [facility] [id number] [address] [place] [address] Nov, Bipolar 1 disorder, mixed F3 1.60 [facility] [address] [place] [id number] [address] [place] [address] Nov, Allergic rhinitis J30.9 [facility] [address] [facility] [id number] [address] [place] [address] Nov, Allergic rhinitis J30.9 [facility] [address] [facility] [id number] [address] [place] [address] Nov, [facility] [address] [place] [id number] [address] [place] [address] Nov, Bipolar 1 disorder, mixed F3 1.60 [facility] [address] [facility] [id number] [address] [place] [address] Nov, Fibromyalgia M79.7 and Aller gic rhinitis J30.9 [facility] [address] [facility] [id number] [address] [place] [address] October, Bipolar 1 disorder, mixed F3 1.60 [facility] [address] [place] [id number] [address] [place] [address] October, Acute nasopharyngitis J00 [facility] [address] [id number] [address] [place] [address] October, Bitten or stung by nonvenomo us insect and other nonvenomous arthropods, initial encounter W57.XXXA and Insect bite (nonvenomous) of abdominal wall, initial encounter S30.861A [facility] [address] [id number] [address] [place] [address] October, Insect bite (nonvenomous) of abdominal wall, initial encounter S30.861A ; Bitten or stung by nonvenomous insect and other nonvenomous arthropods, initial encounter W57.XXXA ; Allergic rhinitis J30.9 and Low back pain M54.5 [facility] [address] [id number] [address] [place] [address] October, Bipolar 1 disorder, mixed F3 1.60 [facility] [address] [id number] [address] [place] [address] October, [facility] [address] [id number] [address] [place] [address] October, [facility] [address] [id number] [address] [place] [address] October, Bipolar 1 disorder, mixed F3 1.60 [facility] [address] [id number] [address] [place] [address] Sep, Bipolar 1 disorder, mixed F3 1.60 [facility] [address] [id number] [address] [place] [address] Sep, Other chronic pain G89.29 [facility] [address] [id number] [address] [place] [address] Sep, [facility] [address] [facility] [id number] [address] [place] [address] Sep, Bipolar 1 disorder, mixed F3 1.60 [facility] [address] [facility] [id number] [address] [place] [address] Sep, Allergic rhinitis J30.9 and Sciatica of left side M54.32 [facility] [address] [facility] [id number] [address] [place] [address] Sep, Bipolar 1 disorder, mixed F3 1.60 [facility] [address] [facility] [id number] [address] [place] [address] Sep, Bipolar 1 disorder, mixed F3 1.60 and Generalized anxiety disorder F41.1 [facility] [address] [facility] [id number] [address] [place] [address] Aug, [facility] [address] [facility] [id number] [address] [place] [address] Aug, Bipolar 1 disorder, mixed F3 1.60 [facility] [address] [facility] [id number] [address] [place] [address] Aug, Bipolar 1 disorder, mixed F3 1.60 [facility] [address] [place] [id number] [address] [place] [address] Aug, [facility] [address] [facility] [id number] [address] [place] [address] Aug, Generalized anxiety disorder F41.1 [facility] [address] [facility] [id number] [address] [place] [address] Aug, Bipolar 1 disorder, mixed F3 1.60 [facility] [address] [facility] [id number] [address] [place] [address] Aug, Plantar wart of right foot B 07.0 [facility] [address] [facility] [id number] [address] [place] [address] Aug, Bipolar 1 disorder, mixed F3 1.60 [facility] [address] [facility] [id number] [address] [place] [address] Jul, Bipolar 1 disorder, mixed F3 1.60 [facility] [address] [facility] [id number] [address] [place] [address] Jul, [facility] [address] [facility] [id number] [address] [place] [address] 14 Jul, 2017 Bipolar 1 disorder, mixed F3 1.60 [facility] [address] [place] [id number] [address] [place] [address] 09 Jul, 2017 Generalized anxiety disorder F41.1 [facility] [address] [facility] [id number] [address] [place] [address] Jul, Bipolar 1 disorder, mixed F3 1.60 [facility] [address] [place] [id number] [address] [place] [address] Jul, Acute left-sided low back pa in with left-sided sciatica M54.42 [facility] [address] [place] [id number] [place] [address] 05 Jul, 2017 Coccydynia M53.3 [facility] [address] [place] [id number] [address] [place] [address] Jun, Bipolar 1 disorder, mixed F3 1.60 [facility] [address] [facility] [id number] [address] [place] [address] Jun, Acute nasopharyngitis J00 [facility] [address] [place] [id number] [place] [address] Jun, Bipolar 1 disorder, mixed F3 1.60 [facility] [address] [place] [id number] [address] [place] [address] Jun, Fibromyalgia M79.7 [facility] [address] [place] [id number] [address] [place] [address] Jun, Bipolar 1 disorder, mixed F3 1.60 [facility] [address] [facility] [id number] [address] [place] [address] Jun, Fibromyalgia M79.7 and Bipol ar 1 disorder, mixed F31.60 [facility] [address] [facility] [id number] [address] [place] [address] May, Bipolar 1 disorder, mixed F3 1.60 ; Generalized anxiety disorder F41.1 and Other detention (current) drug therapy Z79.899 [facility] [id number] [place] [address] May, Bipolar 1 disorder, mixed F3 1.60 [facility] [address] [place] [id number] [address] [place] [address] 14 May, 2017 Cough R05 and Body aches R52 [facility] [address] [place] [id number] [place] [address] 10 May, 2017 Bladder spasm N32.89 and Acu te cystitis without hematuria N30.00 [place] [address] [address] 07 May, 2017 Bipolar 1 disorder, mixed F3 1.60 [place] [address] [address] 30 Apr, 2017 [place] [address] [address] Apr, Major depressive disorder, r ecurrent episode, moderate F33.1 and Encounter for immunization Z23 [place] [address] [address] Apr, Bipolar 1 disorder, mixed F3 1.60 [place] [address] [address] Apr, Bipolar 1 disorder, mixed F3 1.60 [place] [address] [place] [id number] [address] [place] [address] 16 Apr, 2017 Bipolar 1 disorder, mixed F3 1.60 [place] [address] [address] 13 Apr, 2017 Yeast vaginitis B37.3 [place] [address] [place] [id number] [address] [place] [address] 09 Apr, 2017 Bipolar 1 disorder, mixed F3 1.60 [facility] [address] [place] [id number] [address] [place] [address] Apr, Cellulitis L03.[address] for immunization Z23 [facility] [address] [place] [id number] [address] [place] [id number] Apr, Bipolar 1 disorder, mixed F3 1.60 [facility] [address] [place] [id number] [address] [place] [address] Mar, Bipolar 1 disorder, mixed F3 1.60 [facility] [address] [place] [id number] [address] [place] [address] Mar, Bipolar 1 disorder, mixed F3 1.60 [facility] [address] [place] [id number] [place] [id number] Mar, Imbalance R26.89 [address] Encount er for immunization Z23 [facility] [address] [place] [id number] [address] [place] [address] Mar, Generalized anxiety disorder F41.1 [facility] [address] [place] [id number] [address] [place] [address] Mar, Bipolar 1 disorder, mixed F3 1.60 [facility] [address] [place] [id number] [address] [place] [address] Mar, Generalized anxiety disorder F41.1 [facility] [address] [place] [id number] [address] [place] [address] Mar, Bipolar 1 disorder, mixed F3 1.60 [facility] [address] [place] [id number] [address] [place] [address] Mar, Bipolar 1 disorder, mixed F3 1.60 [facility] [address] [place] [id number] [address] [place] [address] Feb, Bipolar 1 disorder, mixed F3 1.60 [facility] [address] [place] [id number] [address] [place] [address] Feb, Bipolar 1 disorder, mixed F3 1.60 and Generalized anxiety disorder F41.1 [facility] [address] [place] [id number] [address] [place] [address] Feb, Gastritis without bleeding, unspecified chronicity, unspecified gastritis type K29.70 ; Hammer toe of right foot M20.41 and Other viral warts B07.8 [facility] [address] [facility] [id number] [address] [place] [address] 20 Feb, 2017 Bipolar 1 disorder, mixed F3 1.60 [place] [address] [place] [id number] [address] [place] [address] 13 Feb, 2017 Bipolar 1 disorder, mixed F3 1.60 [place] [address] [facility] [id number] [address] [place] [address] 05 Feb, 2017 Bipolar 1 disorder, mixed F3 1.60 [place] [address] [place] [id number] [address] [place] [address] 31 Jan, 2017 Encounter for screening mamm ogram for breast cancer Z12.31 ; Other viral warts B07.8 and Allergic rhinitis J30.9 [place] [address] [facility] [id number] [address] [place] [address] Jan, Bipolar 1 disorder, mixed F3 1.60 [place] [address] [facility] [id number] [address] [place] [address] Jan, Bipolar 1 disorder, mixed F3 1.60 [place] [address] [place] [id number] [address] [place] [address] Jan, [place] [address] [facility] [id number] [address] [place] [address] Jan, Bipolar 1 disorder, mixed F3 1.60 [place] [address] [facility] [id number] [address] [place] [address] Jan, Bipolar 1 disorder, mixed F3 1.60 [place] [address] [place] [id number] [address] [place] [address] Jan, Allergic rhinitis J30.9 ; He maturia R31.9 and Colon cancer screening Z12.11 [place] [address] [facility] [id number] [address] [place], [place] [address] Dec, Bipolar 1 disorder, mixed F3 1.60 [facility] [address] [facility] [id number] [address] [place] [address] Dec, Bipolar 1 disorder, mixed F3 1.60 ; Generalized anxiety disorder F41.1 and Other long term acute care registered nurse (current) drug therapy Z79.899 [facility] [address] [facility] [id number] [address] [place] [address] Dec, Bipolar 1 disorder, mixed F3 1.60 [facility] [address] [facility] [id number] [address] [place] [address] Dec, Bipolar 1 disorder, mixed F3 1.60 [facility] [address] [place] [id number] [address] [place] [address] Dec, Bipolar 1 disorder, mixed F3 1.60 [facility] [address] [place] [id number] [address] [place] [address] Dec, Low back pain M54.5 and Recu rrent urinary tract infection N39.0 [facility] [address] [facility] [id number] [address] [place] [address] Nov, Bipolar 1 disorder, mixed F3 1.60 [facility] [address] [facility] [id number] [address] [place] [address] Nov, Bipolar 1 disorder, mixed F3 1.60 [facility] [address] [facility] [id number] [address] [place] [address] Nov, Bipolar 1 disorder, mixed F3 1.60 [facility] [address] [facility] [id number] [address] [place] [address] Nov, Bipolar 1 disorder, mixed F3 1.60 [facility] [address] [facility] [id number] [address] [place] [address] Nov, [facility] [address] [facility] [id number] [address] [place] [address] Nov, Anesthesia of skin R20.0 ; F requent UTI N39.0 ; Tobacco abuse Z72.0 and Colon cancer screening Z12.11 [place] [address] [place] [id number] [address] [place] [address] Nov, Bipolar 1 disorder, mixed F3 1.60 [place] [address] [place] [id number] [address] [place] [address] October, Bipolar 1 disorder, mixed F3 1.60 [place] [address] [place] [id number] [address] [place] [address] October, Bipolar 1 disorder, mixed F3 1.60 [place] [address] [place] [id number] [place] [address] October, Bipolar 1 disorder, mixed F3 1.60 [place] [address] [place] [id number] [address] [place] [address] October, Bipolar 1 disorder, mixed F3 1.60 [place] [address] [place] [id number] [address] [place] [address] October, Bipolar 1 disorder, mixed F3 1.60 [place] [address] [place] [id number] [address] [place] [address] October, Cervicalgia M54.2 and Bipola r 1 disorder, mixed F31.60 [place] [address] [place] [id number] [address] [place] [address] October, Hypertension I10 ; Hyperlipi demia, unspecified hyperlipidemia type E78.5 and Family history of thyroid disease Z83.49 [place] [address] [place] [id number] [address] [place] [address] October, [place] [address] [place] [id number] [place] [address] October, Hypertension I10 ; Hyperlipi demia, unspecified hyperlipidemia type E78.5 and Family history of thyroid problem Z83.49 [place] [address] [place] [id number] [address] [place] [address] October, Bipolar 1 disorder, mixed F3 1.60 [facility] [address] [facility] [id number] [address] [place] [address] Sep, Bipolar 1 disorder, mixed F3 1.60 [facility] [address] [facility] [id number] [address] [place] [address] Sep, Bipolar 1 disorder, mixed F3 1.60 [facility] [address] [place] [id number] [address] [place] [address] Sep, Bipolar 1 disorder, mixed F3 1.60 [facility] [address] [facility] [id number] [address] [place] [address] Sep, History of colon polyps Z86. 010 and Hematochezia K92.1 [facility] [address] [facility] [id number] [address] [place] [address] Sep, Major depressive disorder, r ecurrent episode, moderate F33.1 [facility] [address] [facility] [id number] [address] [place] [address] Sep, Bipolar 1 disorder, mixed F3 1.60 [facility] [address] [facility] [id number] [address] [place] [address] Aug, Hot flashes due to menopause N95.1 [facility] [address] [facility] [id number] [address] [place] [address] Aug, Bipolar 1 disorder, mixed F3 1.60 [facility] [address] [facility] [id number] [address] [place] [id number] Aug, [facility] [address] [facility] [id number] [address] [place] [id number] Aug, Bipolar 1 disorder, mixed F3 1.60 [facility] [address] [place] [id number] [address] [place] [id number] Aug, Bipolar 1 disorder, mixed F3 1.60 [facility] [address] [facility] [id number] [address] [place] [id number] 08 Mar, 2017 Hot flashes due to menopause N95.1 ; Cervicalgia M54.2 and Ataxia R27.0 [place] [address] [id number] Jul, Bipolar 1 disorder, mixed F3 1.60 [place] [address] Jul, Bipolar 1 disorder, mixed F3 1.60 [place] [address] Jul, Bipolar 1 disorder, mixed F3 1.60 [place] [address] Jul, Bipolar 1 disorder, mixed F3 1.60 [place] [address] [address] Jul, Bipolar 1 disorder, mixed F3 1.60 [place] [address] [id number] Jul, Cervicalgia M54.2 ; Tremor R 25.1 ; Hearing abnormally acute, unspecified laterality H93.239 ; Alopecia L65.9 ; Encounter for immunization Z23 and Family history of thyroid disease Z83.49 [place] [address] [id number] Jul, Bipolar 1 disorder, mixed F3 1.60 [place] [address] [id number] Jun, [place] [address] [address] Jun, Hearing disorder, unspecifie d laterality H93.299 [place] [address] [place] [id number] Jun, Bipolar 1 disorder, mixed F3 1.60 [place] [address] [address] Jun, Bipolar 1 disorder, mixed F3 1.60 [facility] [address] [id number] [address] [place] [id number] Jun, Allergic rhinitis J30.9 [facility] [address] [id number] [address] [place] [id number] Jun, Bipolar 1 disorder, mixed F3 1.60 [facility] [address] [id number] [address] [place] [id number] Jun, Bipolar 1 disorder, mixed F3 1.60 [facility] [address] [id number] [address] [place] [id number] Jun, Allergic rhinitis J30.9 [facility] [address] [id number] [address] [place] [address] Jun, Allergic rhinitis J30.9 [facility] [address] [facility] [id number] [address] [place] [address] Jun, Bipolar 1 disorder, mixed F3 1.60 [facility] [address] [id number] [address] [place] [address] May, Bipolar 1 disorder, mixed F3 1.60 [facility] [address] [facility] [id number] [address] [place] [address] May, Bipolar 1 disorder, mixed F3 1.60 [facility] [address] [facility] [id number] [address] [place] [address] May, [facility] [address] [facility] [id number] [address] [place] [address] May, Bipolar 1 disorder, mixed F3 1.60 [facility] [address] [facility] [id number] [address] [place] [address] May, Bipolar 1 disorder, mixed F3 1.60 [facility] [address] [facility] [id number] [address] [place] [address] May, [facility] [address] [facility] [id number] [address] [place] [address] May, [facility] [address] [facility] [id number] [address] [place] [address] May, [facility] [address] [facility] [id number] [address] [place] [address] May, Abdominal pain, unspecified location R10.9 [facility] [address] [place] [id number] [address] [place] [address] May, [facility] [address] [place] [id number] [place] [address] Apr, Hematuria R31.9 ; Ataxia R27 .0 and Hearing loss, unspecified laterality H91.90 [facility] [address] [facility] [id number] [address] [place] [address] Apr, Bipolar 1 disorder, mixed F3 1.60 [facility] [address] [place] [id number] [place] [address] Apr, Acute effusion of both middl e ears H65.193 [facility] [address] [place] [id number] [address] [place] [address] Apr, Hematuria R31.9 and Pyelonep hritis N12 [facility] [address] [place] [id number] [address] [place] [address] Apr, [facility] [address] [place] [id number] [address] [place] [address] Mar, Bipolar 1 disorder, mixed F3 1.60 [facility] [address] [facility] [id number] [address] [place] [address] Mar, [facility] [address] [address] Mar, Bipolar 1 disorder, mixed F3 1.60 [facility] [address] [place] [id number] [address] [place] [address] Mar, Bipolar 1 disorder, mixed F3 1.60 [facility] [address] [place] [address] Mar, Encounter for immunization Z 23 and Gastritis without bleeding, unspecified chronicity, unspecified gastritis type K29.70 [place] [address] Mar, Bipolar 1 disorder, mixed F3 1.60 and Grief F43.20 [place] [address] Mar, Gastritis without bleeding, unspecified chronicity, unspecified gastritis type K29.70 [place] [address] Mar, Bipolar 1 disorder, mixed F3 1.60 [place] [address] Mar, Gastritis without bleeding, unspecified chronicity, unspecified gastritis type K29.70 [place] [address] Mar, [facility] [address] 27 Feb, 2016 Bipolar 1 disorder, mixed F3 1.60 [place] [address] Feb, Bipolar 1 disorder, mixed F3 1.60 and Grief F43.20 [place] [address] [place] [address] Feb, Gastritis without bleeding, unspecified chronicity, unspecified gastritis type K29.70 [place] [address] 14 Feb, 2016 Bipolar 1 disorder, mixed F3 1.60 [facility] [address] [place] [id number] [place] [id number] 09 Feb, 2016 Gastroesophageal reflux dise ase, esophagitis presence not specified K21.9 [facility] [address] [place] [address] Jan, Bipolar 1 disorder, mixed F3 1.60 [place] [address] [place] [address] Jan, Bipolar 1 disorder, mixed F3 1.60 and Unsteady gait R26.81 [facility] [address] [place] [id number] [address] [place] [address] Jan, Bipolar 1 disorder, mixed F3 1.60 [place] [address] [place] [id number] [place] [address] Jan, Bipolar 1 disorder, mixed F3 1.60 and Other detention (current) drug therapy Z79.899 [place] [address] [address] Jan, Bipolar 1 disorder, mixed F3 1.60 [place] [address] [address] Jan, Bipolar 1 disorder, mixed F3 1.60 [place] [address] [address] Jan, Bipolar 1 disorder, mixed F3 1.60 ; Grief F43.20 and Other detention (current) drug therapy Z79.899 [place] [address] [address] Jan, Bipolar 1 disorder, mixed F3 1.60 [place] [address] [place] [id number] [address] [place] [address] Dec, [place] [address] [place] [id number] [place] [address] Dec, Bipolar 1 disorder, mixed F3 1.60 ; Vitamin D deficiency, unspecified E55.9 ; H/O allergic rhinitis Z87.09 ; Other chronic pain G89.29 and Dorsalgia, unspecified M54.9 [place] [address] [place] [id number] [address] [place] [address] Dec, [facility] [address] [id number] [address] [place] [address] Dec, Bipolar 1 disorder, mixed F3 1.60 [facility] [address] [facility] [id number] [address] [place] [address] Dec, Major depressive disorder, r ecurrent episode, moderate F33.1 [place] [address] [facility] [id number] [address] [place] [address] Dec, Major depressive disorder, r ecurrent episode, moderate F33.1 [place] [address] [facility] [id number] [address] [place] [address] Nov, [place] [address] [facility] [id number] [address] [place] [address] Nov, Bipolar 1 disorder, mixed F3 1.60 [place] [address] [facility] [id number] [address] [place] [address] Nov, Major depressive disorder, r ecurrent episode, moderate F33.1 [place] [address] [facility] [id number] [address] [place] [address] Nov, Cervicalgia M54.2 ; Arthralg ia of hip, unspecified laterality M25.559 ; Allergic rhinitis J30.9 and Hormone replacement therapy Z79.890 [facility] [address] [facility] [id number] [address] [place] [address] Nov, Other seasonal allergic rhin itis J30.2 [facility] [address] [facility] [id number] [address] [place] [address] October, Major depressive disorder, r ecurrent episode, moderate F33.1 [facility] [address] [facility] [id number] [address] [place] [address] October, Major depressive disorder, r ecurrent episode, moderate F33.1 and Arthralgia of hip, unspecified laterality M25.559 [facility] [address] [facility] [id number] [address] [place] [address] October, Grief F43.20 ; Hypertension I10 ; Hyperlipidemia, unspecified hyperlipidemia type E78.5 ; Other chronic pain G89.29 and Allergic rhinitis, unspecified allergic rhinitis type J30.9 [place] [address] [facility] [id number] [address] [place] [address] October, Major depressive disorder, r ecurrent episode, moderate F33.1 [place] [address] [facility] [id number] [address] [place] [address] Sep, Major depressive disorder, r ecurrent episode, moderate F33.1 [place] [address] [facility] [id number] [address] [place] [address] Sep, [place] [address] [place] [address] Sep, Major depressive disorder, r ecurrent episode, moderate F33.1 [place] [address] [place] [address] Sep, Grief F43.20 [place] [address] [place] [address] Aug, Major depressive disorder, r ecurrent episode, moderate F33.1 [place] [address] [place] [address] Aug, Bipolar 1 disorder, mixed F3 1.60 [place] [address] [place] [address] Aug, Allergic rhinitis J30.9 ; Ce rvicalgia M54.2 and Low back pain M54.5 [place] [address] [facility] [id number] [address] [place] [address] Aug, Major depressive disorder, r ecurrent episode, moderate F33.1 [facility] [address] [facility] [id number] [address] [place] [address] Aug, Sinusitis J32.9 and Tobacco 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 [place] [address] [place] [address] Aug, [facility] [address] [id number] [address] [place] [address] Aug, Depressive disorder, not els ewhere classified F32.9 ; Hormone replacement therapy Z79.[address] scan, head R93.0 [facility] [address] [id number] [address] [place] [address] Aug, Major depressive disorder, r ecurrent episode, moderate F33.1 [facility] [address] [id number] [address] [place] [address] Jul, Major depressive disorder, r ecurrent episode, moderate F33.1 [facility] [address] [id number] [address] [place] [address] Jul, Abdominal pain R10.9 and Hyp ertension I10 [facility] [address] [id number] [address] [place] [address] Jul, [facility] [address] [id number] [address] [place] [address] Jul, Major depressive disorder, r ecurrent episode, moderate F33.1 [facility] [address] [id number] [address] [place] [address] Jul, [facility] [address] [id number] [address] [place] [address] Jul, [facility] [address] [id number] [address] [place] [address] Jun, [facility] [address] [id number] [address] [place] [address] Jun, Depressive disorder, not els ewhere classified F32.9 [facility] [address] [facility] [id number] [address] [place] [address] Jun, [facility] [address] [facility] [id number] [address] [place] [address] Jun, [facility] [address] [id number] [address] [place] [address] Jun, Arthralgia of hip, unspecifi ed laterality M25.559 ; Bruising, spontaneous R23.3 and Night sweats R61 [facility] [address] [id number] [address] [place] [address] Jun, [facility] [address] [id number] [address] [place] [address] Jun, [facility] [address] [id number] [address] [place] [address] May, [facility] [address] [facility] [id number] [address] [place] [address] May, Myalgia M79.1 and Screening, lipid Z13.220 [facility] [address] [facility] [id number] [address] [place] [address] Apr, Status post cervical spinal fusion Z98.1 ; Fibromyalgia M79.7 and Unsteady gait R26.81 [facility] [address] [id number] [address] [place] [address] Nov, [facility] [address] [facility] [id number] [address] [place] [address] Nov, [facility] [address] [facility] [id number] [address] [place] [address] October, [facility] [address] [id number] [address] [place] [address] October, [facility] [address] [facility] [id number] [address] [place] [address] October, [facility] [address] [facility] [id number] [address] [place] [address] October, [facility] [address] [facility] [id number] [address] [place] [address] October, [facility] [address] [id number] [address] [place] [address] October, Dysuria 788.1 ; Nausea 787.0 2 and Urinary tract infection 599.0 [facility] [address] [id number] [address] [place] [address] 14 Sep, 2014 [facility] [address] [id number] [address] [place] [address], [place] [address] Sep, [facility] [address] [id number] [address] [place] [address] Aug, [facility] [address] [id number] [address] [place] [address], [place] [address] Aug, [facility] [address] [id number] [address] [place] [address] Aug, [facility] [address] [id number] [address] [place] [address] Aug, [facility] [address] [id number] [address] [place] [address], [place] [address] Aug, [facility] [address] [id number] [address] [place] [address] Aug, [facility] [address] [id number] [address] [place] [address] Aug, [facility] [address] [id number] [address] [place] [address] Aug, [facility] [address] [id number] [address] [place] [address] 19 Aug, 2014 [facility] [address] [id number] [address] [place] [address] 18 Aug, 2014 [facility] [address] [id number] [address] [place] [address] 18 Aug, 2014 [facility] [address] [id number] [address] [place] [address] 13 Aug, 2014 [facility] [address] [id number] [address] [place] [address], [place] [address] 13 Aug, 2014 [facility] [address] [id number] [address] [place] [address], [place] [address] Aug, [facility] [address] [id number] [address] [place] [address], [place] [address] Aug, 2014 [facility] [address] [id number] [address] [place] [address], [place] [address] 06 Aug, 2014 [facility] [address] [id number] [address] [place] [address], [place] [address] Aug, 2014 [facility] [address] [id number] [address] [place] [address], [place] [address] Aug, 2014 [facility] [address] [id number] [address] [place] [address], [place] [address] Aug, [facility] [address] [id number] [address] [place] [address], [place] [address] Aug, 2014 [facility] [address] [id number] [address] [place] [address], [place] [address] Aug, [facility] [address] [id number] [address] [place] [address], [place] [address] Aug, [facility] [address] [id number] [address] [place] [address], [place] [address] Jul, [facility] [address] [id number] [address] [place] [address], [place] [address] Jul, [facility] [address] [id number] [address] [place] [address], [place] [address] Jul, [facility] [address] [id number] [address] [place] [address], [place] [address] Jul, [facility] [address] [id number] [address] [place] [address], [place] [address] Jul, [facility] [address] [id number] [address] [place] [address], [place] [address] Jul, 2014 [facility] [address] [id number] [address] [place] [address], [place] [address] Jul, [facility] [address] [id number] [address] [place] [address], [place] [address] Jul, 2014 [facility] [address] [id number] [address] [place] [address], [place] [address] Jul, 2014 [facility] [address] [id number] [address] [place] [address], [place] [address] Jul, 2014 [facility] [address] [id number] [address] [place] [address], [place] [address] Jul, 2014 [facility] [address] [id number] [address] [place] [address], [place] [address] Jul, 2014 [facility] [address] [id number] [address] [place] [address], [place] [address] Jul, [facility] [address] [id number] [address] [place] [address], [place] [address] Jul, [facility] [address] [id number] [address] [place] [address], [place] [address] Jun, [facility] [address] [id number] [address] [place] [address] Jun, [facility] [address] [id number] [address] [place] [address], [place] [address] Jun, [facility] [address] [id number] [address] [place] [address] Jun, [facility] [address] [id number] [address] [place] [address], [place] [address] Jun, [facility] [address] [id number] [address] [place] [address], [place] [address] Jun, [facility] [address] [id number] [address] [place] [address], [place] [address] May, [facility] [address] [id number] [address] [place] [address], [place] [address] May, [facility] [address] [id number] [address] [place] [address], [place] [address] May, [facility] [address] [id number] [address] [place] [address], [place] [address] May, [facility] [address] [id number] [address] [place] [address], [place] [address] May, [facility] [address] [id number] [address] [place] [address], [place] [address] May, [facility] [address] [id number] [address] [place] [address], [place] [address] Apr, [facility] [address] [id number] [address] [place] [address], [place] [address] Apr, [facility] [address] [id number] [address] [place] [address], [place] [address] Apr, [facility] [address] [id number] [address] [place] [address], [place] [address] Apr, [facility] [address] [id number] [address] [place] [address], [place] [address] Apr, [facility] [address] [id number] [address] [place] [address], [place] [address] Apr, [facility] [address] [id number] [address] [place] [address], [place] [address] Mar, [facility] [address] [id number] [address] [place] [address], [place] [address] Mar, [facility] [address] [id number] [address] [place] [address], [place] [address] Mar, [facility] [address] [id number] [address] [place] [address], [place] [address] Mar, [facility] [address] [id number] [address] [place] [address], [place] [address] 07 Mar, 2014 [facility] [address] [id number] [address] [place] [address], [place] [address] Mar, [facility] [address] [id number] [address] [place] [address], [place] [address] Mar, [facility] [address] [id number] [address] [place] [address], [place] [address] Mar, [facility] [address] [id number] [address] [place] [address], [place] [address] Mar, [facility] [address] [id number] [address] [place] [address], [place] [address] Mar, [facility] [address] [id number] [address] [place] [address], [place] [address] Mar, [facility] [address] [id number] [address] [place] [address], [place] [address] Mar, [facility] [address] [id number] [address] [place] [address], [place] [address] 30 Feb, 2013 [facility] [address] [id number] [address] [place] [address], [place] [address] 29 Feb, 2013 [facility] [address] [id number] [address] [place] [address], [place] [address] 29 Feb, 2013 [facility] [address] [id number] [address] [place] [address], [place] [address] 23 Feb, 2013 [facility] [address] [id number] [address] [place] [address], [place] [address] 23 Feb, 2013 [facility] [address] [id number] [address] [place] [address], [place] [address] 08 Feb, 2013 [facility] [address] [id number] [address] [place] [address], [place] [address] 08 Feb, 2013 [facility] [address] [id number] [address] [place] [address], [place] [address] Jan, [facility] [address] [id number] [facility] [place] [address] Jan, [facility] [address] [id number] [facility] [place] [address] Jan, [facility] [address] [id number] [facility] [place] [address] Dec, [facility] [address] [id number] [address] [place] [address], [place] [address] Dec, [facility] [address] [id number] [address] [place] [address], [place] [address] Dec, [facility] [address] [id number] [address] [place] [address], [place] [address] Dec, [facility] [address] [id number] [address] [place] [address], [place] [address] Sep, [facility] [address] [id number] [address] [place] [address], [place] [address] Sep, [facility] [address] [id number] [address] [place] [address], [place] [address] Sep, [facility] [address] [id number] [address] [place] [address], [place] [address] Sep, [facility] [address] [id number] [address] [place] [address], [place] [address] Sep, [facility] [address] [address] [id number] [address] [place] [address], [place] [address] Sep, [facility] [address] [id number] [address] [place] [address], [place] [address] Sep, [facility] [address] [id number] [address] [place] [address], [place] [address] Sep, [facility] [address] [id number] [address] [place] [address], [place] [address] Aug, [facility] [address] [id number] [address] [place] [address], [place] [address] Aug, [facility] [address] [id number] [address] [place] [address], [place] [address] May, [facility] [address] [id number] [address] [place] [address], [place] [address] May, [facility] [address] [id number] [address] [place] [address], [place] [address] Apr, [facility] [address] [id number] [address] [place] [address], [place] [address] Apr, [facility] [address] [id number] [address] [place] [address], [place] [address] Apr, [facility] [address] [id number] [address] [place] [address], [place] [address] Apr, [facility] [address] [id number] [address] [place] [address], [place] [address] Apr, [facility] [address] [id number] [address] [place] [address], [place] [address] Apr, [facility] [address] [id number] [address] [place] [address], [place] [address] May, [facility] [address] [id number] [address] [place] [address], [place] [address] 18 May, 2012 [facility] [address] [id number] [address] [place] [address], [place] [address] 15 May, 2012 [facility] [address] [id number] [address] [place] [address], [place] [address] 15 May, 2012 [facility] [address] [id number] [address] [place] [address], [place] [address] 13 May, 2012 [facility] [address] [id number] [address] [place] [address], [place] [address] 13 May, 2012 [facility] [address] [id number] [address] [place] [address], [place] [address] 13 Apr, 2012 [facility] [address] [id number] [address] [place] [address] [place] [address] 13 Apr, 2012 [facility] [address] [id number] [address] [place] [address], [place] [address] 08 Apr, 2012 [facility] [address] [id number] [address] [place] [address] 08 Apr, 2012 [facility] [address] [id number] [address] [place] [address], [place] [address] 08 Apr, 2012 [facility] [address] [id number] [address] [place] [address], [place] [address] Apr, [facility] [address] [id number] [address] [place] [address], [place] [address] Apr, [facility] [address] [id number] [address] [place] [address], [place] [address] Apr, [facility] [address] [id number] [address] [place] [address], [place] [address] Apr, [facility] [address] [id number] [address] [place] [address] Apr, [facility] [address] [id number] [address] [place] [address], [place] [address] Mar, [facility] [address] [id number] [address] [place] [address] Mar, [facility] [address] [id number] [address] [place] [address], [place] [address] Mar, [facility] [address] [id number] [address] [place] [address] Mar, [facility] [address] [id number] [address] [place] [address] Mar, [facility] [address] [id number] [address] [place] [address] Mar, [facility] [address] [id number] [address] [place] [address] Mar, [facility] [address] [id number] [address] [place] [address], [place] [address] Mar, [facility] [address] [id number] [address] [place] [address], [place] [address] Mar, [facility] [address] [id number] [address] [place] [address], [place] [address] 25 Feb, 2012 [facility] [address] [id number] [address] [place] [address], [place] [address] 16 Feb, 2012 [facility] [address] [id number] [address] [place] [address], [place] [address] 11 Feb, 2012 [facility] [address] [id number] [address] [place] [address], [place] [address] Jan, [facility] [address] [id number] [address] [place] [address], [place] [address] Jan, [facility] [address] [id number] [address] [place] [address], [place] [address] Jan, [facility] [address] [id number] [address] [place] [address], [place] [address] Jan, [facility] [address] [id number] [address] [place] [address], [place] [address] Jan, [facility] [address] [id number] [address] [place] [address], [place] [address] Jan, [facility] [address] [id number] [address] [place] [address], [place] [address] 16 Jan, 2012 [facility] [address] [id number] [address] [place] [address], [place] [address] Jan, [facility] [address] [id number] [address] [place] [address], [place] [address] Jan, [facility] [address] [id number] [address] [place] [address], [place] [address] 09 Jan, 2012 [facility] [address] [id number] [address] [place] [address], [place] [address] Dec, [facility] [address] [id number] [address] [place] [address], [place] [address] Dec, [facility] [address] [id number] [address] [place] [address], [place] [address] Dec, [facility] [address] [id number] [address] [place] [address], [place] [address] Dec, [facility] [address] [id number] [address] [place] [address], [place] [address] Nov, [facility] [address] [id number] [address] [place] [address], [place] [address] Nov, [facility] [address] [id number] [address] [place] [address], [place] [address] Nov, [facility] [address] [id number] [address] [place] [address], [place] [address] October, [facility] [address] [id number] [address] [place] [address], [place] [address] October, [facility] [address] [id number] [address] [place] [address], [place] [address] October, [facility] [address] [id number] [address] [place] [address], [place] [address] October, [facility] [address] [id number] [address] [place] [address], [place] [address] October, [facility] [address] [id number] [address] [place] [address], [place] [address] October, [facility] [address] [id number] [address] [place] [address], [place] [address] Aug, [facility] [address] [id number] [address] [place] [address], [place] [address] Mar, [facility] [address] [id number] [address] [place] [address], [place] [address] Nov, [facility] [address] [id number] [address] [place] [address] May, [facility] [address] [facility] [id number] [address] [place] [address] May, [facility] [address] [facility] [id number] [address] [place] [phone] Apr, [facility] [address] [facility] [id number] [address] [place] [address] Mar, [facility] [address] [facility] [id number] [address] [place] [address] Mar, IMMUNIZATIONS No Known Immunizations SOCIAL HISTORY Never Assessed REASON FOR VISIT Allergy symptoms started last week after steroid injections in back [place] PLAN OF CARE Activity Details Follow Up prn Reason: VITAL SIGNS Height 64 in 2017-11-14 Weight 161.2 lbs 2017-11-14 Temperature 97.8 degrees Fahrenheit 2017-11-14 Heart Rate 84 bpm 2017-11-14 Respiratory Rate 20 2017-11-14 BMI 27.67 kg/m2 2017-11-14 Blood pressure systolic 138 mmHg 2017-11-14 Blood pressure diastolic 90 mmHg 2017-11-14 MEDICATIONS Medication Instructions Dosage Frequency Start Date End Date Duration S tatus Ibuprofen 600 MG Orally 4 times a day 1 tablet with food or milk as needed 6h Sep, Jan, 30 days Active Oxybutynin Chloride ER 10 MG Orally Once a day 1 tablet 24h October, 30 day(s) Active Nitrofurantoin Monohyd Macro 100 mg Orally Once a day 1 capsule with food 24h Active Melatonin 5 mg Orally Once a day 2 tablets 24h May, Active Magnesium 500 MG Orally Once a day 1 tablet with a meal 24h Dec, Active Myrbetriq 50 MG Orally Once a day 1 tablet 24h Active Vitamin D3 2000 UNIT Orally Once a day as directed 24h Dec, Active Cetirizine HCl 10 mg Orally Once a day 1 tablet 24h Jan, 7 Jan, 90 days Active Probiotic Acidophilus Ac tive Baclofen 20 mg Orally 2 times a day 1 tablet with food or milk 12h October, Feb, 30 days Active Gabapentin 100 mg Orally 3 times a day 1 capsule 8h 07 Jul, 2017 Active Lidocaine-Prilocaine 2.5-2.5 % Active Mucinex 600 MG Orally every 12 hrs 1 tablet as needed 12h Active Voltaren 1 % Transdermal 4 times a day on neck Active Estradiol 2 MG Orally Once a day 1 tablet 24h Active Beclomethasone Dipropionate 80 MCG/ACT Nasally Once a day 2 puffs in each nostril 24h Sep, 30 day(s) Active Flunisolide 25 MCG/ACT (0.025%) Nasally Twice a day 2 sprays in each nostril 12h Sep, 30 day(s) Active Orally Once a day 1 capsule 24h Act mitchell Depakote ER 500 mg Orally at bedtime 2 tabs 30 days Active G84-Mxyzxz 1 MG Active Montelukast Sodium 10 mg Orally Once a day 1 tablet in the evening 24h October, 90 days Active Pantoprazole Sodium 20 MG TAKE 1 TABLET BY MOUTH ONCE DAILY 90 Active Fetzima 120 mg Orally Once a day TAKE 1 CAPSULE BY MOUTH DAILY 24h 30 days Active Vagifem 10 MCG Vaginal Two times a Week 1 tablet 84 Active HydrOXYzine HCl 10 mg Orally BID prn anxiety, MAX 45 tabs monthly 1 t ablet 30 days Active RESULTS No Results PROCEDURES Procedure Date Ordered Result Body Site [facility] VISIT ESTABLISHED PATIENT November 14, 2017 INSTRUCTIONS MEDICATIONS ADMINISTERED No Known Medications [...]
--- OUTSIDE RECORDS SUMMARY | 2019-06-19 05:34 | XMS REPORT ---
Author Author Sydnie MORTON Organization [facility] Address [address] [place] [address] Care Team Providers Care Rigger Third Name Role Phone JOHN MORTON Unavailable PROBLEMS Type Condition ICD9-CM Code EPU67-UB Code Onset Dates Condition S tatus SNOMED Code Problem Hormone replacement therapy Z79.890 Ac tive 050116340 Problem Abnormal CT scan, head R93.0 Active 643215770 Problem Sensorineural hearing loss (SNHL) of both ears H90 .3 Active 362159583 Problem History of colon polyps Z86.010 Active 403522524 Problem Bruising, spontaneous R23.3 Active 659739764 Problem Generalized anxiety disorder F41.1 A ctive 71717637 Problem Arthralgia of hip, unspecified laterality M25.559 Active 42130448 Problem Hematuria, unspecified type R31.9 Ac tive 42693341 Problem Imbalance R26.89 Active 697190628 Problem Hammer toe of right foot M20.41 Activ e 531119495 Problem Plantar wart of right foot B07.0 Act mitchell [id number] Problem Sciatica of left side M54.32 Active 96852002 Problem Hyperlipidemia, unspecified hyperlipidemia type E7 8.5 Active 72557077 Problem Hypertension I10 Active 9558215 3 Problem Night sweats R61 Active 3010096 0 Problem Fibromyalgia M79.7 Active 8449682 7 Problem Major depressive disorder, recurrent episode, moderate F33.1 Active 466301957 Problem Acute left-sided low back pain with left-sided sciatica M54.42 Active 516543327 Problem Bladder spasm N32.89 Active 349151 006 Problem Gastritis without bleeding, unspecified chronicity, unspecified gastritis type K29.70 Active 688745049 Problem Bipolar 1 disorder, mixed F31.60 Acti ve 83070402 Problem Grief F43.20 Active 81023629 Problem Other chronic pain G89.29 Active 8 4139334 Problem Allergic rhinitis J30.9 Active 61 562311 Problem Hot flashes due to menopause N95.1 A ctive 541912474 Problem Ataxia R27.0 Active 82914710 Problem Hearing loss, unspecified laterality H91.90 Active 30622607 ALLERGIES No Information ENCOUNTERS Encounter Location Date Diagnosis [facility] [address] [facility] [id number] [address] [place] [address] Mar, [facility] [address] [facility] [id number] [address] [place] [address] Feb, [facility] [address] [facility] [id number] [address] [place] [address] Feb, [facility] [address] [place] [id number] [place] [address] Jan, [facility] [address] [place] [id number] [address] [place] [address] Jan, [facility] [address] [place] [id number] [place] [address] Jan, Bipolar 1 disorder, mixed F3 1.60 [facility] [address] [place] [id number] [address] [place] [address] Jan, Bipolar 1 disorder, mixed F3 1.60 [facility] [address] [place] [id number] [address] [place] [address] Jan, Bipolar 1 disorder, mixed F3 1.60 [facility] [address] [place] [id number] [address] [place] [address] Dec, Bipolar 1 disorder, mixed F3 1.60 ; Generalized anxiety disorder F41.1 and 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 [facility] [address] [place] [id number] [address] [place] [address] Dec, Other usp (current) dr bin therapy Z79.899 [facility] [address] [facility] [id number] [address] [place] [address] Dec, Bipolar 1 disorder, mixed F3 1.60 [facility] [address] [facility] [id number] [address] [place] [address] Dec, Bipolar 1 disorder, mixed F3 1.60 [facility] [address] [facility] [id number] [address] [place] [address] Nov, Bipolar 1 disorder, mixed F3 1.60 [facility] [address] [facility] [id number] [address] [place] [address] Nov, Bipolar 1 disorder, mixed F3 1.60 [facility] [address] [facility] [id number] [address] [place] [address] Nov, Bipolar 1 disorder, mixed F3 1.60 [facility] [address] [facility] [id number] [address] [place] [address] Nov, Allergic rhinitis J30.9 [facility] [address] [facility] [id number] [address] [place] [address] Nov, Allergic rhinitis J30.9 [facility] [address] [place] [id number] [address] [place] [address] Nov, [facility] [address] [place] [id number] [place] [address] Nov, Bipolar 1 disorder, mixed F3 1.60 [facility] [address] [facility] [id number] [address] [place] [address] Nov, Fibromyalgia M79.7 and Aller gic rhinitis J30.9 [facility] [address] [facility] [id number] [address] [place] [address] October, Bipolar 1 disorder, mixed F3 1.60 [facility] [address] [place] [id number] [address] [place] [address] October, Acute nasopharyngitis J00 [facility] [address] [facility] [id number] [address] [place] [address] October, Bitten or stung by nonvenomo us insect and other nonvenomous arthropods, initial encounter W57.XXXA and Insect bite (nonvenomous) of abdominal wall, initial encounter S30.861A [facility] [address] [id number] [address] [place] [address] October, Insect bite (nonvenomous) of abdominal wall, initial encounter S30.861A ; Bitten or stung by nonvenomous insect and other nonvenomous arthropods, initial encounter W57.XXXA ; Allergic rhinitis J30.9 and Low back pain M54.5 [facility] [address] [id number] [address] [place] [address] October, Bipolar 1 disorder, mixed F3 1.60 [facility] [address] [id number] [address] [place] [address] October, [facility] [address] [id number] [address] [place] [address] October, [facility] [address] [facility] [id number] [address] [place] [address] October, Bipolar 1 disorder, mixed F3 1.60 [facility] [address] [id number] [address] [place] [address] Sep, Bipolar 1 disorder, mixed F3 1.60 [facility] [address] [facility] [id number] [address] [place] [address] Sep, Other chronic pain G89.29 [facility] [address] [facility] [id number] [address] [place] [address] Sep, [facility] [address] [id number] [address] [place] [address] Sep, Bipolar 1 disorder, mixed F3 1.60 [facility] [address] [facility] [id number] [address] [place] [address] Sep, Allergic rhinitis J30.9 and Sciatica of left side M54.32 [facility] [address] [facility] [id number] [address] [place] [address] Sep, Bipolar 1 disorder, mixed F3 1.60 [facility] [address] [id number] [address] [place] [address] Sep, Bipolar 1 disorder, mixed F3 1.60 and Generalized anxiety disorder F41.1 [facility] [address] [facility] [id number] [address] [place] [address] Aug, [facility] [address] [facility] [id number] [address] [place] [address] Aug, Bipolar 1 disorder, mixed F3 1.60 [facility] [address] [id number] [address] [place] [address] Aug, Bipolar 1 disorder, mixed F3 1.60 [facility] [address] [facility] [id number] [address] [place] [address] Aug, [facility] [address] [facility] [id number] [address] [place] [address] Aug, Generalized anxiety disorder F41.1 [facility] [address] [facility] [id number] [address] [place] [address] Aug, Bipolar 1 disorder, mixed F3 1.60 [facility] [address] [facility] [id number] [address] [place] [address] Aug, Plantar wart of right foot B 07.0 [facility] [address] [facility] [id number] [address] [place] [address] Aug, Bipolar 1 disorder, mixed F3 1.60 [facility] [address] [facility] [id number] [address] [place] [address] Jul, Bipolar 1 disorder, mixed F3 1.60 [facility] [address] [facility] [id number] [address] [place] [address] Jul, [facility] [address] [facility] [id number] [address] [place] [address] 14 Jul, 2017 Bipolar 1 disorder, mixed F3 1.60 [facility] [address] [facility] [id number] [address] [place] [address] Jul, Generalized anxiety disorder F41.1 [facility] [address] [facility] [id number] [address] [place] [address] 07 Jul, 2017 Bipolar 1 disorder, mixed F3 1.60 [facility] [address] [facility] [id number] [address] [place] [address] Jul, Acute left-sided low back pa in with left-sided sciatica M54.42 [facility] [address] [facility] [id number] [address] [place] [address] Jul, Coccydynia M53.3 [facility] [address] [place] [id number] [address] [place] [address] Jun, Bipolar 1 disorder, mixed F3 1.60 [facility] [address] [place] [id number] [address] [place] [address] Jun, Acute nasopharyngitis J00 [facility] [address] [place] [id number] [address] [place] [address] Jun, Bipolar 1 disorder, mixed F3 1.60 [facility] [address] [place] [id number] [address] [place] [address] Jun, Fibromyalgia M79.7 [facility] [address] [place] [id number] [address] [place] [address] Jun, Bipolar 1 disorder, mixed F3 1.60 [facility] [address] [place] [id number] [address] [place] [address] Jun, Fibromyalgia M79.7 and Bipol ar 1 disorder, mixed F31.60 [facility] [address] [place] [id number] [address] [place] [address] May, Bipolar 1 disorder, mixed F3 1.60 ; Generalized anxiety disorder F41.1 and 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 [facility] [address] [place] [id number] [address] [place] [address] May, Bipolar 1 disorder, mixed F3 1.60 [facility] [address] [address] 14 May, 2017 Cough R05 and Body aches R52 [facility] [address] [place] [id number] 10 May, 2017 Bladder spasm N32.89 and Acu te cystitis without hematuria N30.00 [facility] [address] [address] 07 May, 2017 Bipolar 1 disorder, mixed F3 1.60 [place] [address] [address] 30 Apr, 2017 [place] [address] Apr, Major depressive disorder, r ecurrent episode, moderate F33.1 and Encounter for immunization Z23 [place] [address] [address] Apr, Bipolar 1 disorder, mixed F3 1.60 [place] [address] [address] 22 Apr, 2017 Bipolar 1 disorder, mixed F3 1.60 [place] [address] [address] 16 Apr, 2017 Bipolar 1 disorder, mixed F3 1.60 [place] [address] [address] 13 Apr, 2017 Yeast vaginitis B37.3 [place] [address] [address] 09 Apr, 2017 Bipolar 1 disorder, mixed F3 1.60 [facility] [address] [address] 07 Apr, 2017 [address]ulitis [address]03[address] for immunization Z23 [place] [address] [address] Apr, Bipolar 1 disorder, mixed F3 1.60 [place] [address] [place] [id number] [place] [address] Mar, Bipolar 1 disorder, mixed F3 1.60 [place] [address] [place] [id number] [place], [place] [address] Mar, Bipolar 1 disorder, mixed F3 1.60 [place] [address] Mar, Imbalance R26.89 and Encount er for immunization Z23 [place] [address] [address] Mar, Generalized anxiety disorder F41.1 [place] [address] [address] Mar, Bipolar 1 disorder, mixed F3 1.60 [place] [address] [address] Mar, Generalized anxiety disorder F41.1 [place] [address] [address] Mar, Bipolar 1 disorder, mixed F3 1.60 [place] [address] [address] Mar, Bipolar 1 disorder, mixed F3 1.60 [place] [address] [place] [id number] [place] [address] Feb, Bipolar 1 disorder, mixed F3 1.60 [place] [address] [place] [id number] [place] [address] Feb, Bipolar 1 disorder, mixed F3 1.60 and Generalized anxiety disorder F41.1 [place] [address] [place] [id number] [place], [place] [id number] Feb, Gastritis without bleeding, unspecified chronicity, unspecified gastritis type K29.70 ; Hammer toe of right foot M20.41 and Other viral warts B07.8 [facility] [address] [facility] [id number] [address] [place] [address] 20 Feb, 2017 Bipolar 1 disorder, mixed F3 1.60 [facility] [address] [facility] [id number] [address] [place] [address] 13 Feb, 2017 Bipolar 1 disorder, mixed F3 1.60 [facility] [address] [facility] [id number] [address] [place] [address] 05 Feb, 2017 Bipolar 1 disorder, mixed F3 1.60 [facility] [address] [facility] [id number] [address] [place] [address] Jan, Encounter for screening mamm ogram for breast cancer Z12.31 ; Other viral warts B07.8 and Allergic rhinitis J30.9 [facility] [address] [facility] [id number] [address] [place] [address] Jan, Bipolar 1 disorder, mixed F3 1.60 [place] [address] [facility] [id number] [address] [place] [address] Jan, Bipolar 1 disorder, mixed F3 1.60 [place] [id number] [facility] [id number] [address] [place] [address] Jan, [facility] [address] [facility] [id number] [address] [place] [address] Jan, Bipolar 1 disorder, mixed F3 1.60 [place] [address] [facility] [id number] [address] [place] [address] Jan, Bipolar 1 disorder, mixed F3 1.60 [facility] [address] [facility] [id number] [address] [place] [address] Jan, Allergic rhinitis J30.9 ; He maturia R31.9 and Colon cancer screening Z12.11 [facility] [address] [facility] [id number] [address] [place] [address] Dec, Bipolar 1 disorder, mixed F3 1.60 [place] [address] [facility] [id number] [address] [place] [address] Dec, Bipolar 1 disorder, mixed F3 1.60 ; Generalized anxiety disorder F41.1 and 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 [place] [address] [place] [id number] [place] [address] Dec, Bipolar 1 disorder, mixed F3 1.60 [facility] [address] [place] [id number] [address] [place] [address] Dec, Bipolar 1 disorder, mixed F3 1.60 [place] [address] [place] [id number] [address] [place] [address] Dec, Bipolar 1 disorder, mixed F3 1.60 [place] [address] [address] Dec, Low back pain M54.5 and Recu rrent urinary tract infection N39.0 [place] [address] [place] [id number] [place] [address] Nov, Bipolar 1 disorder, mixed F3 1.60 [place] [address] [place] [address] Nov, Bipolar 1 disorder, mixed F3 1.60 [place] [address] [place] [id number] [place] [address] Nov, Bipolar 1 disorder, mixed F3 1.60 [place] [address] [place] [id number] [place] [address] Nov, Bipolar 1 disorder, mixed F3 1.60 [place] [address] [place] [id number] [place] [address] Nov, [place] [address] [address] Nov, Anesthesia of skin R20.0 ; F requent UTI N39.0 ; Tobacco abuse Z72.0 and Colon cancer screening Z12.11 [place] [address] [place] [id number] [place] [address] Nov, Bipolar 1 disorder, mixed F3 1.60 [facility] [address] [place] [id number] [place] [address] October, Bipolar 1 disorder, mixed F3 1.60 [facility] [address] [place] [id number] [place] [address] October, Bipolar 1 disorder, mixed F3 1.60 [facility] [address] [place] [id number] [address] [place] [address] October, Bipolar 1 disorder, mixed F3 1.60 [facility] [address] [place] [id number] [place] [address] October, Bipolar 1 disorder, mixed F3 1.60 [facility] [address] [place] [id number] [place] [address] October, Bipolar 1 disorder, mixed F3 1.60 [facility] [address] [place] [id number] [place] [address] October, Cervicalgia M54.2 and Bipola r 1 disorder, mixed F31.60 [facility] [address] [place] [id number] [address] [place] [address] October, Hypertension I10 ; Hyperlipi demia, unspecified hyperlipidemia type E78.5 and Family history of thyroid disease Z83.49 [facility] [address] [place] [id number] [place] [address] October, [facility] [address] [place] [id number] [place] [address] October, Hypertension I10 ; Hyperlipi demia, unspecified hyperlipidemia type E78.5 and Family history of thyroid problem Z83.49 [facility] [address] [place] [id number] [place] [address] October, Bipolar 1 disorder, mixed F3 1.60 [facility] [address] [place] [id number] [place] [address] Sep, Bipolar 1 disorder, mixed F3 1.60 [facility] [address] [facility] [id number] [address] [place] [address] Sep, Bipolar 1 disorder, mixed F3 1.60 [facility] [address] [facility] [id number] [address] [place] [address] Sep, Bipolar 1 disorder, mixed F3 1.60 [facility] [address] [place] [id number] [place] [address] Sep, History of colon polyps Z86. 010 and Hematochezia K92.1 [facility] [address] [facility] [id number] [address] [place] [address] Sep, Major depressive disorder, r ecurrent episode, moderate F33.1 [facility] [address] [facility] [id number] [address] [place] [address] Sep, Bipolar 1 disorder, mixed F3 1.60 [facility] [address] [place] [id number] [address] [place] [address] Aug, Hot flashes due to menopause N95.1 [facility] [address] [facility] [id number] [address] [place] [address] Aug, Bipolar 1 disorder, mixed F3 1.60 [facility] [address] [place] [id number] [address] [place] [address] Aug, [facility] [address] [place] [id number] [place] [address] Aug, Bipolar 1 disorder, mixed F3 1.60 [facility] [address] [facility] [id number] [address] [place] [address] Aug, Bipolar 1 disorder, mixed F3 1.60 [facility] [address] [place] [id number] [address] [place] [address] Aug, Hot flashes due to menopause N95.1 ; Cervicalgia M54.2 and Ataxia R27.0 [facility] [address] [place] [id number] [address] [place] [address] Jul, Bipolar 1 disorder, mixed F3 1.60 [facility] [address] [address] Jul, Bipolar 1 disorder, mixed F3 1.60 [facility] [address] [address] 20 Jul, 2016 Bipolar 1 disorder, mixed F3 1.60 [facility] [address] [address] Jul, Bipolar 1 disorder, mixed F3 1.60 [facility] [address] [address] Jul, Bipolar 1 disorder, mixed F3 1.60 [place] [address] [address] 08 Jul, 2016 Cervicalgia M54.2 ; Tremor R 25.1 ; Hearing abnormally acute, unspecified laterality H93.239 ; Alopecia L65.9 ; Encounter for immunization Z23 and Family history of thyroid disease Z83.49 [place] [address] [address] Jul, Bipolar 1 disorder, mixed F3 1.60 [place] [address] [address] Jun, [place] [address] [address] Jun, Hearing disorder, unspecifie d laterality H93.299 [facility] [address] [address] Jun, Bipolar 1 disorder, mixed F3 1.60 [facility] [address] [address] Jun, Bipolar 1 disorder, mixed F3 1.60 [facility] [address] [address] Jun, Allergic rhinitis J30.9 [place] [address] [id number] [address] [place] [id number] Jun, Bipolar 1 disorder, mixed F3 1.60 [facility] [address] [id number] [address] [place] [id number] Jun, Bipolar 1 disorder, mixed F3 1.60 [facility] [address] [id number] [address] [place] [id number] Jun, Allergic rhinitis J30.9 [facility] [address] [id number] [address] [place] [id number] Jun, Allergic rhinitis J30.9 [facility] [address] [id number] [address] [place] [id number] Jun, Bipolar 1 disorder, mixed F3 1.60 [facility] [address] [id number] [address] [place] [id number] May, Bipolar 1 disorder, mixed F3 1.60 [facility] [address] [id number] [address] [place] [id number] May, Bipolar 1 disorder, mixed F3 1.60 [facility] [address] [id number] [address] [place] [id number] May, [facility] [address] [id number] [address] [place] [id number] May, Bipolar 1 disorder, mixed F3 1.60 [facility] [address] [id number] [address] [place] [id number] May, Bipolar 1 disorder, mixed F3 1.60 [facility] [address] [id number] [address] [place] [id number] May, [facility] [address] [id number] [address] [place] [id number] May, [facility] [address] [id number] [address] [place] [id number] May, [facility] [address] [id number] May, Abdominal pain, unspecified location R10.9 [facility] [address] [id number] May, [facility] [address] [address] Apr, Hematuria R31.9 ; Ataxia R27 .0 and Hearing loss, unspecified laterality H91.90 [facility] [address] [id number] Apr, Bipolar 1 disorder, mixed F3 1.60 [facility] [address] [id number] Apr, Acute effusion of both middl e ears H65.193 [place] [address] [address] Apr, Hematuria R31.9 and Pyelonep hritis N12 [facility] [address] [id number] Apr, [place] [address] [id number] Mar, Bipolar 1 disorder, mixed F3 1.60 [place] [address] [address] Mar, [facility] [address] [address] Mar, Bipolar 1 disorder, mixed F3 1.60 [place] [address] [address] Mar, Bipolar 1 disorder, mixed F3 1.60 [place] [address] [address] Mar, Encounter for immunization Z 23 and Gastritis without bleeding, unspecified chronicity, unspecified gastritis type K29.70 [place] [address] [place] [id number] [place] [address] Mar, Bipolar 1 disorder, mixed F3 1.60 and Grief F43.20 [place] [address] [address] [place] [id number] [address] [place], [place] [id number] Mar, Gastritis without bleeding, unspecified chronicity, unspecified gastritis type K29.70 [place] [address] [address] [place] [id number] [address] [place] [address] Mar, Bipolar 1 disorder, mixed F3 1.60 [place] [address] [place] [id number] [place] [id number] Mar, Gastritis without bleeding, unspecified chronicity, unspecified gastritis type K29.70 [place] [address] [place] [id number] [address] [place] [address] Mar, [place] [address] [place] [address] Feb, Bipolar 1 disorder, mixed F3 1.60 [place] [address] [place] [address] Feb, Bipolar 1 disorder, mixed F3 1.60 and Grief F43.20 [place] [address] [place] [address] Feb, Gastritis without bleeding, unspecified chronicity, unspecified gastritis type K29.70 [place] [address] [address] [place] [id number] [address] [place] [address] 14 Feb, 2016 Bipolar 1 disorder, mixed F3 1.60 [facility] [address] [facility] [id number] [address] [place] [address] 09 Feb, 2016 Gastroesophageal reflux dise ase, esophagitis presence not specified K21.9 [facility] [address] [place] [id number] [address] [place] [address] Jan, Bipolar 1 disorder, mixed F3 1.60 [place] [address] [address] [place] [id number] [address] [place] [address] Jan, Bipolar 1 disorder, mixed F3 1.60 and Unsteady gait R26.81 [facility] [address] [facility] [id number] [address] [place] [address] Jan, Bipolar 1 disorder, mixed F3 1.60 [facility] [address] [facility] [id number] [address] [place] [address] Jan, Bipolar 1 disorder, mixed F3 1.60 and Other usp (current) drug therapy Z79.899 [facility] [address] [id number] [address] [place] [address] Jan, Bipolar 1 disorder, mixed F3 1.60 [facility] [address] [facility] [id number] [address] [place] [address] Jan, Bipolar 1 disorder, mixed F3 1.60 [place] [address] [address] [place] [id number] [address] [place] [address] Jan, Bipolar 1 disorder, mixed F3 1.60 ; Grief F43.20 and 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 [facility] [address] [facility] [id number] [address] [place] [address] Jan, Bipolar 1 disorder, mixed F3 1.60 [facility] [address] [facility] [id number] [address] [place] [address] Dec, [facility] [address] [facility] [id number] [address] [place] [address] Dec, Bipolar 1 disorder, mixed F3 1.60 ; Vitamin D deficiency, unspecified E55.9 ; H/O allergic rhinitis Z87.09 ; Other chronic pain G89.29 and Dorsalgia, unspecified M54.9 [facility] [address] [facility] [id number] [address] [place] [address] Dec, [facility] [address] [facility] [id number] [address] [place] [address] Dec, Bipolar 1 disorder, mixed F3 1.60 [facility] [address] [place] [address] Dec, Major depressive disorder, r ecurrent episode, moderate F33.1 [place] [address] [place] [address] Dec, Major depressive disorder, r ecurrent episode, moderate F33.1 [place] [address] [place] [address] Nov, [place] [address] [address] Nov, Bipolar 1 disorder, mixed F3 1.60 [place] [address] [address] Nov, Major depressive disorder, r ecurrent episode, moderate F33.1 [place] [address] [address] Nov, Cervicalgia M54.2 ; Arthralg ia of hip, unspecified laterality M25.559 ; Allergic rhinitis J30.9 and Hormone replacement therapy Z79.890 [facility] [address] [place] [id number] [address] [place] [address] Nov, Other seasonal allergic rhin itis J30.2 [place] [address] [address] [place] [id number] [address] [place] [address] October, Major depressive disorder, r ecurrent episode, moderate F33.1 [place] [address] [address] [place] [id number] [address] [place] [address] October, Major depressive disorder, r ecurrent episode, moderate F33.1 and Arthralgia of hip, unspecified laterality M25.559 [place] [address] [address] [place] [id number] [address] [place] [address] October, Grief F43.20 ; Hypertension I10 ; Hyperlipidemia, unspecified hyperlipidemia type E78.5 ; Other chronic pain G89.29 and Allergic rhinitis, unspecified allergic rhinitis type J30.9 [place] [address] [facility] [id number] [address] [place] [address] October, Major depressive disorder, r ecurrent episode, moderate F33.1 [place] [address] [facility] [id number] [address] [place] [address] Sep, Major depressive disorder, r ecurrent episode, moderate F33.1 [facility] [address] [facility] [id number] [address] [place] [address] Sep, [place] [address] [facility] [id number] [address] [place] [address] Sep, Major depressive disorder, r ecurrent episode, moderate F33.1 [place] [address] [address] [facility] [id number] [address] [place] [address] Sep, Grief F43.20 [place] [address] [address] [place] [id number] [address] [place] [address] Aug, Major depressive disorder, r ecurrent episode, moderate F33.1 [place] [address] [facility] [id number] [address] [place] [address] Aug, Bipolar 1 disorder, mixed F3 1.60 [place] [address] [address] [place] [id number] [address] [place] [address] Aug, Allergic rhinitis J30.9 ; Ce rvicalgia M54.2 and Low back pain M54.5 [place] [address] [address] [place] [id number] [address] [place] [address] Aug, Major depressive disorder, r ecurrent episode, moderate F33.1 [facility] [address] [facility] [id number] [address] [place] [address] Aug, Sinusitis J32.9 and Tobacco 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 [facility] [address] [facility] [id number] [address] [place] [address] Aug, [facility] [address] [place] [id number] [address] [place] [address] Aug, Depressive disorder, not els ewhere classified F32.9 ; Hormone replacement therapy Z79.[address] scan, head R93.0 [facility] [address] [id number] [address] [place] [address] Aug, Major depressive disorder, r ecurrent episode, moderate F33.1 [facility] [address] [id number] [address] [place] [address] Jul, Major depressive disorder, r ecurrent episode, moderate F33.1 [facility] [address] [id number] [address] [place] [address] Jul, Abdominal pain R10.9 and Hyp ertension I10 [facility] [address] [id number] [address] [place] [address] Jul, [facility] [address] [id number] [address] [place] [address] Jul, Major depressive disorder, r ecurrent episode, moderate F33.1 [facility] [address] [id number] [address] [place] [address] Jul, [facility] [address] [id number] [address] [place] [address] Jul, [facility] [address] [facility] [id number] [address] [place] [address] Jun, [facility] [address] [id number] [address] [place] [address] Jun, Depressive disorder, not els ewhere classified F32.9 [facility] [address] [id number] [address] [place] [address] Jun, [facility] [address] [facility] [id number] [address] [place] [address] Jun, [facility] [address] [facility] [id number] [address] [place] [address] Jun, Arthralgia of hip, unspecifi ed laterality M25.559 ; Bruising, spontaneous R23.3 and Night sweats R61 [facility] [address] [facility] [id number] [address] [place] [address] Jun, [facility] [address] [facility] [id number] [address] [place] [address] Jun, [facility] [address] [facility] [id number] [address] [place] [address] May, [facility] [address] [facility] [id number] [address] [place] [address] May, Myalgia M79.1 and Screening, lipid Z13.220 [facility] [address] [place] [id number] [address] [place] [address] Apr, Status post cervical spinal fusion Z98.1 ; Fibromyalgia M79.7 and Unsteady gait R26.81 [facility] [address] [place] [id number] [address] [place] [address] Nov, [facility] [address] [facility] [id number] [address] [place] [address] Nov, [facility] [address] [facility] [id number] [address] [place] [address] October, [facility] [address] [place] [id number] [address] [place] [address] October, [facility] [address] [facility] [id number] [address] [place] [address] October, [facility] [address] [facility] [id number] [address] [place] [address] October, [facility] [address] [facility] [id number] [address] [place] [address] October, [facility] [address] [facility] [id number] [address] [place] [address] October, Dysuria 788.1 ; Nausea 787.0 2 and Urinary tract infection 599.0 [facility] [address] [id number] [facility] [place] [address] 14 Sep, 2014 [facility] [address] [id number] [address] [place] [address], [place] [address] 13 Sep, 2014 [facility] [address] [id number] [address] [place] [address], [place] [address] 25 Aug, 2014 [facility] [address] [id number] [address] [place] [address], [place] [address] 25 Aug, 2014 [facility] [address] [id number] [address] [place] [address], [place] [address] 24 Aug, 2014 [facility] [address] [id number] [address] [place] [address], [place] [address] 24 Aug, 2014 [facility] [address] [id number] [address] [place] [address], [place] [address] 23 Aug, 2014 [facility] [address] [id number] [address] [place] [address], [place] [address] 19 Aug, 2014 [facility] [address] [id number] [address] [place] [address], [place] [address] 19 Aug, 2014 [facility] [address] [id number] [address] [place] [address], [place] [address] 19 Aug, 2014 [facility] [address] [id number] [address] [place] [address], [place] [address] 19 Aug, 2014 [facility] [address] [id number] [address] [place] [address], [place] [address] 18 Aug, 2014 [facility] [address] [id number] [address] [place] [address], [place] [address] 18 Aug, 2014 [facility] [address] [id number] [address] [place] [address], [place] [address] 13 Aug, 2014 [facility] [address] [id number] [address] [place] [address], [place] [address] 13 Aug, 2014 [facility] [address] [id number] [address] [place] [address], [place] [address] Aug, [facility] [address] [id number] [address] [place] [address], [place] [address] Aug, [facility] [address] [id number] [address] [place] [address], [place] [address] Aug, [facility] [address] [id number] [address] [place] [address], [place] [address] Aug, [facility] [address] [id number] [address] [place] [address], [place] [address] Aug, [facility] [address] [id number] [address] [place] [address], [place] [address] Aug, [facility] [address] [id number] [address] [place] [address], [place] [address] Aug, [facility] [address] [id number] [address] [place] [address], [place] [address] Aug, [facility] [address] [id number] [address] [place] [address], [place] [address] Aug, [facility] [address] [id number] [address] [place] [address], [place] [address] Jul, [facility] [address] [id number] [address] [place] [address], [place] [address] Jul, [facility] [address] [id number] [address] [place] [address], [place] [address] Jul, 2014 [facility] [address] [id number] [address] [place] [address] Jul, 2014 [facility] [address] [id number] [address] [place] [address], [place] [address] Jul, 2014 [facility] [address] [id number] [address] [place] [address], [place] [address] Jul, [facility] [address] [id number] [address] [place] [address], [place] [address] Jul, 2014 [facility] [address] [id number] [address] [place] [address], [place] [address] Jul, 2014 [facility] [address] [id number] [address] [place] [address], [place] [address] Jul, 2014 [facility] [address] [id number] [address] [place] [address], [place] [address] Jul, 2014 [facility] [address] [id number] [address] [place] [address], [place] [address] Jul, 2014 [facility] [address] [id number] [address] [place] [address], [place] [address] Jul, 2014 [facility] [address] [id number] [address] [place] [address], [place] [address] Jul, [facility] [address] [id number] [address] [place] [address], [place] [address] Jul, [facility] [address] [id number] [address] [place] [address] Jun, [facility] [address] [id number] [address] [place] [address], [place] [address] Jun, [facility] [address] [id number] [address] [place] [address] Jun, [facility] [address] [id number] [address] [place] [address] Jun, [facility] [address] [id number] [address] [place] [address] Jun, [facility] [address] [id number] [address] [place] [address] Jun, [facility] [address] [id number] [address] [place] [address], [place] [address] May, [facility] [address] [id number] [address] [place] [address] May, [facility] [address] [id number] [address] [place] [address] May, [facility] [address] [id number] [address] [place] [address], [place] [address] May, [facility] [address] [id number] [address] [place] [address] May, [facility] [address] [id number] [address] [place] [address], [place] [address] May, [facility] [address] [id number] [address] [place] [address], [place] [address] Apr, [facility] [address] [id number] [address] [place] [address], [place] [address] Apr, [facility] [address] [id number] [address] [place] [address], [place] [address] Apr, [facility] [address] [id number] [address] [place] [address], [place] [address] Apr, [facility] [address] [id number] [address] [place] [address], [place] [address] Apr, [facility] [address] [id number] [address] [place] [address], [place] [address] Apr, [facility] [address] [id number] [address] [place] [address], [place] [address] Mar, [facility] [address] [id number] [address] [place] [address] Mar, [facility] [address] [id number] [address] [place] [address] Mar, [facility] [address] [id number] [address] [place] [address] Mar, [facility] [address] [id number] [address] [place] [address] Mar, [facility] [address] [id number] [address] [place] [address] Mar, [facility] [address] [id number] [address] [place] [address], [place] [address] Mar, [facility] [address] [id number] [address] [place] [address], [place] [address] Mar, [facility] [address] [id number] [address] [place] [address], [place] [address] Mar, [facility] [address] [id number] [address] [place] [address], [place] [address] Mar, [facility] [address] [id number] [address] [place] [address], [place] [address] Mar, [facility] [address] [id number] [address] [place] [address], [place] [address] Mar, [facility] [address] [id number] [address] [place] [address], [place] [address] 30 Feb, 2014 [facility] [address] [id number] [address] [place] [address], [place] [address] 29 Feb, 2013 [facility] [address] [id number] [address] [place] [address], [place] [address] 29 Feb, 2014 [facility] [address] [id number] [address] [place] [address], [place] [address] 23 Feb, 2013 [facility] [address] [id number] [address] [place] [address], [place] [address] 23 Feb, 2014 [facility] [address] [id number] [address] [place] [address], [place] [address] 08 Feb, 2013 [facility] [address] [id number] [address] [place] [address], [place] [address] 08 Feb, 2014 [facility] [address] [id number] [address] [place] [address], [place] [address] Jan, [facility] [address] [id number] [address] [place] [address], [place] [address] Jan, [facility] [address] [id number] [address] [place] [address], [place] [address] Jan, [facility] [address] [id number] [facility] [place] [address] Dec, [facility] [address] [id number] [facility] [place] [address] Dec, [facility] [address] [id number] [address] [place] [address], [place] [address] Dec, [facility] [address] [id number] [address] [place] [address], [place] [address] Dec, [facility] [address] [id number] [address] [place] [address], [place] [address] Sep, [facility] [address] [id number] [address] [place] [address], [place] [address] Sep, [facility] [address] [id number] [address] [place] [address], [place] [address] Sep, [facility] [address] [id number] [address] [place] [address], [place] [address] Sep, [facility] [address] [id number] [address] [place] [address], [place] [address] Sep, [facility] [address] [id number] [address] [place] [address], [place] [address] Sep, [facility] [address] [id number] [address] [place] [address], [place] [address] Sep, [facility] [address] [id number] [address] [place] [address], [place] [address] Sep, [facility] [address] [id number] [address] [place] [address], [place] [address] Aug, [facility] [address] [id number] [address] [place] [address], [place] [address] Aug, [facility] [address] [id number] [address] [place] [address], [place] [address] May, [facility] [address] [id number] [address] [place] [address], [place] [address] May, [facility] [address] [id number] [address] [place] [address], [place] [address] Apr, [facility] [address] [id number] [address] [place] [address], [place] [address] Apr, [facility] [address] [id number] [address] [place] [address], [place] [address] Apr, [facility] [address] [id number] [address] [place] [address], [place] [address] Apr, [facility] [address] [id number] [address] [place] [address], [place] [address] Apr, [facility] [address] [id number] [address] [place] [address], [place] [address] Apr, [facility] [address] [id number] [address] [place] [address], [place] [address] May, [facility] [address] [id number] [address] [place] [address], [place] [address] 18 May, 2012 [facility] [address] [id number] [address] [place] [address], [place] [address] 15 May, 2012 [facility] [address] [id number] [address] [place] [address], [place] [address] 15 May, 2012 [facility] [address] [id number] [address] [place] [address], [place] [address] 13 May, 2012 [facility] [address] [id number] [address] [place] [address], [place] [address] 13 May, 2012 [facility] [address] [id number] [address] [place] [address], [place] [address] 13 Apr, 2012 [facility] [address] [id number] [address] [place] [address], [place] [address] 13 Apr, 2012 [facility] [address] [id number] [address] [place] [address], [place] [address] 08 Apr, 2012 [facility] [address] [id number] [address] [place] [address], [place] [address] 08 Apr, 2012 [facility] [address] [id number] [address] [place] [address], [place] [address] Apr, [facility] [address] [id number] [address] [place] [address], [place] [address] Apr, [facility] [address] [id number] [address] [place] [address], [place] [address] Apr, [facility] [address] [id number] [address] [place] [address], [place] [address] Apr, [facility] [address] [id number] [address] [place] [address], [place] [address] Apr, [facility] [address] [id number] [address] [place] [address], [place] [address] Apr, [facility] [address] [id number] [address] [place] [address], [place] [address] Mar, [facility] [address] [id number] [address] [place] [address], [place] [address] Mar, [facility] [address] [id number] [address] [place] [address], [place] [address] Mar, [facility] [address] [id number] [address] [place] [address], [place] [address] Mar, [facility] [address] [id number] [address] [place] [address], [place] [address] Mar, [facility] [address] [id number] [address] [place] [address], [place] [address] Mar, [facility] [address] [id number] [address] [place] [address], [place] [address] Mar, [facility] [address] [id number] [address] [place] [address], [place] [address] Mar, [facility] [address] [id number] [address] [place] [address] Mar, [facility] [address] [id number] [address] [place] [address], [place] [address] 25 Feb, 2012 [facility] [address] [id number] [address] [place] [address], [place] [address] 16 Feb, 2012 [facility] [address] [id number] [address] [place] [address], [place] [address] Feb, [facility] [address] [id number] [address] [place] [address], [place] [address] Jan, [facility] [address] [id number] [address] [place] [address], [place] [address] Jan, [facility] [address] [id number] [address] [place] [address], [place] [address] Jan, [facility] [address] [id number] [address] [place] [address], [place] [address] Jan, [facility] [address] [id number] [address] [place] [address], [place] [address] Jan, [facility] [address] [id number] [address] [place] [address], [place] [address] Jan, [facility] [address] [id number] [address] [place] [address], [place] [address] Jan, [facility] [address] [id number] [address] [place] [address], [place] [address] Jan, [facility] [address] [id number] [address] [place] [address], [place] [address] Jan, [facility] [address] [id number] [address] [place] [address], [place] [address] Jan, [facility] [address] [id number] [address] [place] [address], [place] [address] Dec, [facility] [address] [id number] [address] [place] [address], [place] [address] Dec, [facility] [address] [id number] [address] [place] [address], [place] [address] Dec, [facility] [address] [id number] [address] [place] [address], [place] [address] Dec, [facility] [address] [id number] [address] [place] [address], [place] [address] Nov, [facility] [address] [id number] [address] [place] [address], [place] [address] Nov, [facility] [address] [id number] [address] [place] [address], [place] [address] Nov, [facility] [address] [id number] [address] [place] [address], [place] [address] October, [facility] [address] [id number] [address] [place] [address], [place] [address] October, [facility] [address] [id number] [address] [place] [address], [place] [address] October, [facility] [address] [id number] [address] [place] [address], [place] [address] October, [facility] [address] [id number] [address] [place] [address], [place] [address] October, [facility] [address] [id number] [address] [place] [address], [place] [address] October, [facility] [address] [id number] [address] [place] [address], [place] [address] Aug, [facility] [address] [id number] [address] [place] [address], [place] [address] Mar, [facility] [address] [id number] [address] [place] [address], [place] [address] 16 Nov, 2010 [facility] [address] [id number] [address] [place] [address], [place] [address] May, [facility] [address] [id number] [address] [place] [address], [place] [address] May, [facility] [address] [facility] [id number] [address] [place] [address] Apr, [facility] [address] [facility] [id number] [address] [place] [address] Mar, [facility] [address] [facility] [id number] [address] [place] [address] Mar, IMMUNIZATIONS No Known Immunizations SOCIAL HISTORY Never Assessed REASON FOR VISIT f/u PLAN OF CARE Activity Details Follow Up 1 Week Reason: F/U VITAL SIGNS MEDICATIONS Unknown Medications RESULTS No Results PROCEDURES Procedure Date Ordered Result Body Site [facility] VISIT MENTAL HEALTH ESTAB PT November 14, 2017 Psychotherapy, patient &/family, 45 minutes, established patient November 14, 2017 visit needs to be added to the same day medical November 14, 2017 INSTRUCTIONS MEDICATIONS ADMINISTERED No Known Medications MEDICAL (GENERAL) HISTORY Type Description Date Medical History Severe spinal stenosis [facility] cervical spine CT and MRI [...]
--- OUTSIDE RECORDS SUMMARY | 2019-06-19 05:35 | XMS REPORT ---
Author Author Sydnie MONTERO Organization [facility] Address [address] [place] [address] Care Team Providers Care Hand Stamper Name Role Phone YAEL MONTERO Unavailable PROBLEMS Type Condition ICD9-CM Code [id number] Code Onset Dates Condition S tatus SNOMED Code Problem Hormone replacement therapy Z79.890 Ac tive 362071999 Problem Abnormal CT scan, head R93.0 Active 971020893 Problem Sensorineural hearing loss (SNHL) of both ears H90 .3 Active 329621032 Problem History of colon polyps Z86.010 Active 015926355 Problem Bruising, spontaneous R23.3 Active 446524617 Problem Generalized anxiety disorder F41.1 A ctive 51437059 Problem Arthralgia of hip, unspecified laterality M25.559 Active 39892351 Problem Hematuria, unspecified type R31.9 Ac tive 81242176 Problem Imbalance R26.89 Active 897434913 Problem Hammer toe of right foot M20.41 Activ e 869197340 Problem Plantar wart of right foot B07.0 Act mitchell [id number] Problem Sciatica of left side M54.32 Active 84417351 Problem Hyperlipidemia, unspecified hyperlipidemia type E7 8.5 Active 84723081 Problem Hypertension I10 Active 2678141 3 Problem Night sweats R61 Active 4176987 0 Problem Fibromyalgia M79.7 Active 8717591 7 Problem Major depressive disorder, recurrent episode, moderate F33.1 Active 531144338 Problem Acute left-sided low back pain with left-sided sciatica M54.42 Active 845147044 Problem Bladder spasm N32.89 Active 179298 006 Problem Gastritis without bleeding, unspecified chronicity, unspecified gastritis type K29.70 Active 769846099 Problem Bipolar 1 disorder, mixed F31.60 Acti ve 29797324 Problem Grief F43.20 Active 92761688 Problem Other chronic pain G89.29 Active 8 1549658 Problem Allergic rhinitis J30.9 Active 61 538440 Problem Hot flashes due to menopause N95.1 A ctive 282353281 Problem Ataxia R27.0 Active 49425583 Problem Hearing loss, unspecified laterality H91.90 Active 72460698 ALLERGIES Substance Reaction Event Type Date Status Morphine Sulfate Unknown Drug Allergy October, Active Iodine Unknown Drug Allergy October, Active Lyrica 75 Mg Capsule "felt weird" Non Drug Allergy October, Act mitchell ENCOUNTERS Encounter Location Date Diagnosis [facility] [address] [id number] [address] [place] [phone] Mar, [facility] [address] [id number] [address] [place] [address] Feb, [facility] [address] [facility] [id number] [address] [place] [address] Feb, [facility] [address] [facility] [id number] [address] [place] [address] Jan, [facility] [address] [id number] [address] [place] [address] Jan, [facility] [address] [facility] [id number] [address] [place] [address] Jan, [facility] [address] [facility] [id number] [address] [place] [id number] Jan, Bipolar 1 disorder, mixed F3 1.60 [facility] [address] [facility] [id number] [address] [place] [address] Jan, Bipolar 1 disorder, mixed F3 1.60 [facility] [address] [facility] [id number] [address] [place] [address] Dec, Bipolar 1 disorder, mixed F3 1.60 ; Generalized anxiety disorder F41.1 and 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 [facility] [address] [facility] [id number] [address] [place] [address] Dec, Other nursing home (current) dr bin therapy Z79.899 [facility] [address] [facility] [id number] [address] [place] [address] Dec, Bipolar 1 disorder, mixed F3 1.60 [facility] [address] [facility] [id number] [address] [place] [address] Dec, Bipolar 1 disorder, mixed F3 1.60 [facility] [address] [facility] [id number] [address] [place] [id number] Nov, Bipolar 1 disorder, mixed F3 1.60 [facility] [address] [id number] [address] [place] [address] Nov, Bipolar 1 disorder, mixed F3 1.60 [facility] [address] [facility] [id number] [address] [place] [address] Nov, Bipolar 1 disorder, mixed F3 1.60 [facility] [address] [facility] [id number] [address] [place] [address] Nov, Allergic rhinitis J30.9 [facility] [address] [facility] [id number] [address] [place] [id number] Nov, Allergic rhinitis J30.9 [facility] [address] [facility] [id number] [address] [place] [phone] Nov, [facility] [address] [facility] [id number] [address] [place] [address] Nov, Bipolar 1 disorder, mixed F3 1.60 [facility] [address] [facility] [id number] [address] [place] [address] Nov, Fibromyalgia M79.7 and Aller gic rhinitis J30.9 [facility] [address] [facility] [id number] [address] [place] [address] October, Bipolar 1 disorder, mixed F3 1.60 [facility] [address] [facility] [id number] [address] [place] [address] October, Acute nasopharyngitis J00 [facility] [address] [facility] [id number] [address] [place] [address] October, Bitten or stung by nonvenomo us insect and other nonvenomous arthropods, initial encounter W57.XXXA and Insect bite (nonvenomous) of abdominal wall, initial encounter S30.861A [facility] [address] [id number] [address] [place] [address] October, Insect bite (nonvenomous) of abdominal wall, initial encounter S30.861A ; Bitten or stung by nonvenomous insect and other nonvenomous arthropods, initial encounter W57.XXXA ; Allergic rhinitis J30.9 and Low back pain M54.5 [facility] [address] [id number] [address] [place] [address] October, Bipolar 1 disorder, mixed F3 1.60 [facility] [address] [facility] [id number] [address] [place] [phone] October, [facility] [address] [facility] [id number] [address] [place] [address] October, [facility] [address] [id number] [address] [place] [address] October, Bipolar 1 disorder, mixed F3 1.60 [facility] [address] [id number] [address] [place] [address] Sep, Bipolar 1 disorder, mixed F3 1.60 [facility] [address] [id number] [address] [place] [address] Sep, Other chronic pain G89.29 [facility] [address] [id number] [address] [place] [phone] Sep, [facility] [address] [facility] [id number] [address] [place] [address] Sep, Bipolar 1 disorder, mixed F3 1.60 [facility] [address] [facility] [id number] [address] [place] [address] Sep, Allergic rhinitis J30.9 and Sciatica of left side M54.32 [facility] [address] [facility] [id number] [address] [place] [address] Sep, Bipolar 1 disorder, mixed F3 1.60 [facility] [address] [facility] [id number] [address] [place] [address] Sep, Bipolar 1 disorder, mixed F3 1.60 and Generalized anxiety disorder F41.1 [facility] [address] [facility] [id number] [address] [place] [address] Aug, [facility] [address] [facility] [id number] [address] [place] [address] Aug, Bipolar 1 disorder, mixed F3 1.60 [facility] [address] [facility] [id number] [address] [place] [address] Aug, Bipolar 1 disorder, mixed F3 1.60 [facility] [address] [place] [id number] [address] [place] [id number] Aug, [facility] [address] [place] [id number] [address] [place] [address] Aug, Generalized anxiety disorder F41.1 [facility] [address] [facility] [id number] [address] [place] [address] Aug, Bipolar 1 disorder, mixed F3 1.60 [facility] [address] [facility] [id number] [address] [place] [id number] Aug, Plantar wart of right foot B 07.0 [facility] [address] [facility] [id number] [address] [place] [address] Aug, Bipolar 1 disorder, mixed F3 1.60 [facility] [address] [facility] [id number] [address] [place] [address] Jul, Bipolar 1 disorder, mixed F3 1.60 [facility] [address] [facility] [id number] [address] [place] [address] Jul, [facility] [address] [place] [id number] [address] [place] [id number] 14 Jul, 2017 Bipolar 1 disorder, mixed F3 1.60 [facility] [address] [facility] [id number] [address] [place] [address] 09 Jul, 2017 Generalized anxiety disorder F41.1 [facility] [address] [place] [id number] [address] [place] [id number] Jul, Bipolar 1 disorder, mixed F3 1.60 [facility] [address] [place] [id number] [address] [place] [address] Jul, Acute left-sided low back pa in with left-sided sciatica M54.42 [facility] [address] [place] [id number] [address] [place] [phone] Jul, Coccydynia M53.3 [facility] [address] [place] [id number] [address] [place] [address] Jun, Bipolar 1 disorder, mixed F3 1.60 [facility] [address] [place] [id number] [address] [place] [id number] Jun, Acute nasopharyngitis J00 [facility] [address] [place] [id number] [place] [address] Jun, Bipolar 1 disorder, mixed F3 1.60 [facility] [address] [place] [id number] [address] [place] [address] Jun, Fibromyalgia M79.7 [facility] [address] [place] [id number] [address] [place] [address] Jun, Bipolar 1 disorder, mixed F3 1.60 [facility] [address] [place] [id number] [address] [place] [address] Jun, Fibromyalgia M79.7 and Bipol ar 1 disorder, mixed F31.60 [facility] [address] [place] [id number] [address] [place] [address] May, Bipolar 1 disorder, mixed F3 1.60 ; Generalized anxiety disorder F41.1 and 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 [facility] [address] [place] [id number] [address] [place] [address] May, Bipolar 1 disorder, mixed F3 1.60 [facility] [address] [place] [id number] [address] [place] [id number] 14 May, 2017 Cough R05 and Body aches R52 [facility] [address] [place] [id number] [place] [phone] 10 May, 2017 Bladder spasm N32.89 and Acu te cystitis without hematuria N30.00 [place] [address] [id number] 07 May, 2017 Bipolar 1 disorder, mixed F3 1.60 [place] [address] [address] 30 Apr, 2017 [place] [address] [address] Apr, Major depressive disorder, r ecurrent episode, moderate F33.1 and Encounter for immunization Z23 [place] [address] [address] Apr, Bipolar 1 disorder, mixed F3 1.60 [place] [id number] [address] Apr, Bipolar 1 disorder, mixed F3 1.60 [place] [address] [address] 16 Apr, 2017 Bipolar 1 disorder, mixed F3 1.60 [place] [id number] [place] [address] 13 Apr, 2017 Yeast vaginitis B37.3 [place] [address] [place] [id number] [address] [place] [address] 09 Apr, 2017 Bipolar 1 disorder, mixed F3 1.60 [facility] [address] [place] [id number] [address] [place] [address] 07 Apr, 2017 Cellulitis L03.[address] for immunization Z23 [facility] [address] [place] [id number] [address] [place] [address] Apr, Bipolar 1 disorder, mixed F3 1.60 [facility] [address] [place] [id number] [address] [place] [address] Mar, Bipolar 1 disorder, mixed F3 1.60 [facility] [address] [place] [id number] [address] [place] [id number] Mar, Bipolar 1 disorder, mixed F3 1.60 [facility] [address] [place] [id number] [address] [place] [id number] Mar, Imbalance R26.89 [address] Encount er for immunization Z23 [facility] [address] [place] [id number] [address] [place] [address] Mar, Generalized anxiety disorder F41.1 [place] [address] [place] [id number] [address] [place] [address] Mar, Bipolar 1 disorder, mixed F3 1.60 [place] [address] [place] [id number] [address] [place] [address] Mar, Generalized anxiety disorder F41.1 [place] [address] [place] [id number] [address] [place] [address] Mar, Bipolar 1 disorder, mixed F3 1.60 [facility] [address] [place] [id number] [address] [place] [address] Mar, Bipolar 1 disorder, mixed F3 1.60 [facility] [address] [place] [id number] [address] [place] [address] Feb, Bipolar 1 disorder, mixed F3 1.60 [facility] [address] [place] [id number] [address] [place] [address] Feb, Bipolar 1 disorder, mixed F3 1.60 and Generalized anxiety disorder F41.1 [facility] [address] [place] [id number] [address] [place] [address] Feb, Gastritis without bleeding, unspecified chronicity, unspecified gastritis type K29.70 ; Hammer toe of right foot M20.41 and Other viral warts B07.8 [place] [address] [facility] [id number] [address] [place] [address] Feb, Bipolar 1 disorder, mixed F3 1.60 [place] [address] [facility] [id number] [address] [place] [address] Feb, Bipolar 1 disorder, mixed F3 1.60 [place] [address] [facility] [id number] [address] [place] [address] Feb, Bipolar 1 disorder, mixed F3 1.60 [place] [address] [facility] [id number] [address] [place] [address] Jan, Encounter for screening mamm ogram for breast cancer Z12.31 ; Other viral warts B07.8 and Allergic rhinitis J30.9 [place] [address] [facility] [id number] [address] [place] [address] Jan, Bipolar 1 disorder, mixed F3 1.60 [place] [address] [facility] [id number] [address] [place] [address] Jan, Bipolar 1 disorder, mixed F3 1.60 [place] [address] [facility] [id number] [address] [place] [address] Jan, [place] [address] [facility] [id number] [address] [place] [address] Jan, Bipolar 1 disorder, mixed F3 1.60 [place] [address] [facility] [id number] [address] [place] [address] Jan, Bipolar 1 disorder, mixed F3 1.60 [place] [address] [facility] [id number] [address] [place] [address] Jan, Allergic rhinitis J30.9 ; He maturia R31.9 and Colon cancer screening Z12.11 [place] [address] [facility] [id number] [address] [place] [address] Dec, Bipolar 1 disorder, mixed F3 1.60 [facility] [address] [id number] [address] [place] [address] Dec, Bipolar 1 disorder, mixed F3 1.60 ; Generalized anxiety disorder F41.1 and 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 [facility] [address] [id number] [address] [place] [address] Dec, Bipolar 1 disorder, mixed F3 1.60 [facility] [address] [id number] [address] [place] [address] Dec, Bipolar 1 disorder, mixed F3 1.60 [facility] [address] [facility] [id number] [address] [place] [address] Dec, Bipolar 1 disorder, mixed F3 1.60 [facility] [address] [facility] [id number] [address] [place] [address] Dec, Low back pain M54.5 and Recu rrent urinary tract infection N39.0 [facility] [address] [id number] [address] [place] [address] Nov, Bipolar 1 disorder, mixed F3 1.60 [facility] [address] [facility] [id number] [address] [place] [address] Nov, Bipolar 1 disorder, mixed F3 1.60 [facility] [address] [facility] [id number] [address] [place] [address] Nov, Bipolar 1 disorder, mixed F3 1.60 [facility] [address] [id number] [address] [place] [address] Nov, Bipolar 1 disorder, mixed F3 1.60 [facility] [address] [facility] [id number] [address] [place] [address] Nov, [facility] [address] [facility] [id number] [address] [place] [address] Nov, Anesthesia of skin R20.0 ; F requent UTI N39.0 ; Tobacco abuse Z72.0 and Colon cancer screening Z12.11 [facility] [address] [place] [id number] [address] [place] [address] Nov, Bipolar 1 disorder, mixed F3 1.60 [facility] [address] [place] [id number] [address] [place] [address] October, Bipolar 1 disorder, mixed F3 1.60 [place] [address] [place] [id number] [place] [address] October, Bipolar 1 disorder, mixed F3 1.60 [place] [address] [place] [id number] [address] [place] [address] October, Bipolar 1 disorder, mixed F3 1.60 [place] [address] [place] [id number] [address] [place] [address] October, Bipolar 1 disorder, mixed F3 1.60 [place] [address] [address] October, Bipolar 1 disorder, mixed F3 1.60 [place] [address] [place] [id number] [address] [place] [address] October, Cervicalgia M54.2 and Bipola r 1 disorder, mixed F31.60 [place] [address] [place] [id number] [address] [place] [address] October, Hypertension I10 ; Hyperlipi demia, unspecified hyperlipidemia type E78.5 and Family history of thyroid disease Z83.49 [place] [address] [place] [id number] [address] [place] [address] October, [place] [address] [place] [id number] [place] [address] October, Hypertension I10 ; Hyperlipi demia, unspecified hyperlipidemia type E78.5 and Family history of thyroid problem Z83.49 [place] [address] [place] [id number] [address] [place] [address] October, Bipolar 1 disorder, mixed F3 1.60 [facility] [address] [facility] [id number] [address] [place] [address] Sep, Bipolar 1 disorder, mixed F3 1.60 [facility] [address] [facility] [id number] [address] [place] [address] Sep, Bipolar 1 disorder, mixed F3 1.60 [facility] [address] [facility] [id number] [address] [place] [address] Sep, Bipolar 1 disorder, mixed F3 1.60 [facility] [address] [facility] [id number] [address] [place] [address] Sep, History of colon polyps Z86. 010 and Hematochezia K92.1 [facility] [address] [facility] [id number] [address] [place] [phone] Sep, Major depressive disorder, r ecurrent episode, moderate F33.1 [place] [address] [place] [id number] [address] [place] [address] Sep, Bipolar 1 disorder, mixed F3 1.60 [facility] [address] [facility] [id number] [address] [place] [address] Aug, Hot flashes due to menopause N95.1 [facility] [address] [facility] [id number] [address] [place] [address] Aug, Bipolar 1 disorder, mixed F3 1.60 [facility] [address] [facility] [id number] [address] [place] [address] Aug, [facility] [address] [facility] [id number] [address] [place] [address] Aug, Bipolar 1 disorder, mixed F3 1.60 [facility] [address] [facility] [id number] [address] [place] [address] Aug, Bipolar 1 disorder, mixed F3 1.60 [facility] [address] [facility] [id number] [address] [place] [address] Aug, Hot flashes due to menopause N95.1 ; Cervicalgia M54.2 and Ataxia R27.0 [place] [address] [address] Jul, Bipolar 1 disorder, mixed F3 1.60 [place] [address] Jul, Bipolar 1 disorder, mixed F3 1.60 [place] [address] Jul, Bipolar 1 disorder, mixed F3 1.60 [place] [address] Jul, Bipolar 1 disorder, mixed F3 1.60 [place] [address] Jul, Bipolar 1 disorder, mixed F3 1.60 [place] [address] [id number] Jul, Cervicalgia M54.2 ; Tremor R 25.1 ; Hearing abnormally acute, unspecified laterality H93.239 ; Alopecia L65.9 ; Encounter for immunization Z23 and Family history of thyroid disease Z83.49 [place] [address] [address] Jul, Bipolar 1 disorder, mixed F3 1.60 [place] [address] [id number] Jun, [place] [address] Jun, Hearing disorder, unspecifie d laterality H93.299 [place] [address] [address] [place] [id number] Jun, Bipolar 1 disorder, mixed F3 1.60 [place] [address] [address] Jun, Bipolar 1 disorder, mixed F3 1.60 [facility] [address] [id number] [address] [place] [id number] Jun, Allergic rhinitis J30.9 [facility] [address] [id number] [address] [place] [id number] Jun, Bipolar 1 disorder, mixed F3 1.60 [facility] [address] [id number] [address] [place] [id number] Jun, Bipolar 1 disorder, mixed F3 1.60 [facility] [address] [address] [id number] [address] [place] [address] Jun, Allergic rhinitis J30.9 [facility] [address] [id number] [address] [place] [address] Jun, Allergic rhinitis J30.9 [facility] [address] [facility] [id number] [address] [place] [address] Jun, Bipolar 1 disorder, mixed F3 1.60 [facility] [address] [id number] [address] [place] [address] May, Bipolar 1 disorder, mixed F3 1.60 [facility] [address] [id number] [address] [place] [address] May, Bipolar 1 disorder, mixed F3 1.60 [facility] [address] [facility] [id number] [address] [place] [address] May, [facility] [address] [facility] [id number] [address] [place] [address] May, Bipolar 1 disorder, mixed F3 1.60 [facility] [address] [id number] [address] [place] [address] May, Bipolar 1 disorder, mixed F3 1.60 [facility] [address] [facility] [id number] [address] [place] [address] May, [facility] [address] [facility] [id number] [address] [place] [address] May, [facility] [address] [facility] [id number] [address] [place] [address] May, [facility] [address] [facility] [id number] [address] [place] [address] May, Abdominal pain, unspecified location R10.9 [facility] [address] [facility] [id number] [address] [place] [address] May, [facility] [address] [place] [id number] [address] [place] [address] Apr, Hematuria R31.9 ; Ataxia R27 .0 and Hearing loss, unspecified laterality H91.90 [facility] [address] [facility] [id number] [address] [place] [address] Apr, Bipolar 1 disorder, mixed F3 1.60 [facility] [address] [facility] [id number] [address] [place] [address] Apr, Acute effusion of both middl e ears H65.193 [facility] [address] [facility] [id number] [address] [place] [address] Apr, Hematuria R31.9 and Pyelonep hritis N12 [facility] [address] [facility] [id number] [address] [place] [address] Apr, [facility] [address] [place] [id number] [address] [place] [address] Mar, Bipolar 1 disorder, mixed F3 1.60 [facility] [address] [facility] [id number] [address] [place] [address] Mar, [facility] [address] [facility] [id number] [address] [place] [address] Mar, Bipolar 1 disorder, mixed F3 1.60 [facility] [address] [facility] [id number] [address] [place] [address] Mar, Bipolar 1 disorder, mixed F3 1.60 [facility] [address] [place] [id number] [address] [place] [address] Mar, Encounter for immunization Z 23 and Gastritis without bleeding, unspecified chronicity, unspecified gastritis type K29.70 [place] [address] [place] [address] Mar, Bipolar 1 disorder, mixed F3 1.60 and Grief F43.20 [place] [address] [place] [address] Mar, Gastritis without bleeding, unspecified chronicity, unspecified gastritis type K29.70 [place] [address] Mar, Bipolar 1 disorder, mixed F3 1.60 [place] [address] Mar, Gastritis without bleeding, unspecified chronicity, unspecified gastritis type K29.70 [place] [address] [place] [address] Mar, [place] [address] [address] Feb, Bipolar 1 disorder, mixed F3 1.60 [place] [address] [place] [address] Feb, Bipolar 1 disorder, mixed F3 1.60 and Grief F43.20 [place] [address] [place] [address] Feb, Gastritis without bleeding, unspecified chronicity, unspecified gastritis type K29.70 [place] [address] [address] 14 Feb, 2016 Bipolar 1 disorder, mixed F3 1.60 [facility] [address] [place] [id number] [place] [id number] 09 Feb, 2016 Gastroesophageal reflux dise ase, esophagitis presence not specified K21.9 [place] [address] [place] [address] Jan, Bipolar 1 disorder, mixed F3 1.60 [facility] [address] [facility] [id number] [address] [place] [address] Jan, Bipolar 1 disorder, mixed F3 1.60 and Unsteady gait R26.81 [facility] [address] [facility] [id number] [address] [place] [address] Jan, Bipolar 1 disorder, mixed F3 1.60 [facility] [address] [facility] [id number] [address] [place] [address] Jan, Bipolar 1 disorder, mixed F3 1.60 and 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 [place] [address] [facility] [id number] [address] [place] [address] Jan, Bipolar 1 disorder, mixed F3 1.60 [place] [address] [place] [id number] [address] [place] [address] Jan, Bipolar 1 disorder, mixed F3 1.60 [place] [address] [facility] [id number] [address] [place] [address] Jan, Bipolar 1 disorder, mixed F3 1.60 ; Grief F43.20 and 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 [place] [address] [place] [id number] [address] [place] [address] Jan, Bipolar 1 disorder, mixed F3 1.60 [place] [address] [facility] [id number] [address] [place] [address] Dec, [place] [address] [facility] [id number] [address] [place] [address] Dec, Bipolar 1 disorder, mixed F3 1.60 ; Vitamin D deficiency, unspecified E55.9 ; H/O allergic rhinitis Z87.09 ; Other chronic pain G89.29 and Dorsalgia, unspecified M54.9 [facility] [address] [facility] [id number] [address] [place] [address] Dec, [place] [address] [facility] [id number] [address] [place] [address] Dec, Bipolar 1 disorder, mixed F3 1.60 [facility] [address] [facility] [id number] [address] [place] [address] Dec, Major depressive disorder, r ecurrent episode, moderate F33.1 [place] [address] [facility] [id number] [address] [place] [address] Dec, Major depressive disorder, r ecurrent episode, moderate F33.1 [place] [address] [facility] [id number] [address] [place] [address] Nov, [place] [address] [facility] [id number] [address] [place] [address] Nov, Bipolar 1 disorder, mixed F3 1.60 [place] [address] [facility] [id number] [address] [place] [address] Nov, Major depressive disorder, r ecurrent episode, moderate F33.1 [place] [address] [facility] [id number] [address] [place] [address] Nov, Cervicalgia M54.2 ; Arthralg ia of hip, unspecified laterality M25.559 ; Allergic rhinitis J30.9 and Hormone replacement therapy Z79.890 [facility] [address] [facility] [id number] [address] [place] [address] Nov, Other seasonal allergic rhin itis J30.2 [facility] [address] [facility] [id number] [address] [place] [address] October, Major depressive disorder, r ecurrent episode, moderate F33.1 [facility] [address] [facility] [id number] [address] [place] [address] October, Major depressive disorder, r ecurrent episode, moderate F33.1 and Arthralgia of hip, unspecified laterality M25.559 [place] [address] [facility] [id number] [address] [place] [address] October, Grief F43.20 ; Hypertension I10 ; Hyperlipidemia, unspecified hyperlipidemia type E78.5 ; Other chronic pain G89.29 and Allergic rhinitis, unspecified allergic rhinitis type J30.9 [place] [address] [facility] [id number] [address] [place] [address] October, Major depressive disorder, r ecurrent episode, moderate F33.1 [place] [address] [facility] [id number] [address] [place] [address] Sep, Major depressive disorder, r ecurrent episode, moderate F33.1 [place] [address] [facility] [id number] [address] [place] [address] Sep, [place] [address] [place] [id number] [place] [address] Sep, Major depressive disorder, r ecurrent episode, moderate F33.1 [place] [address] [place] [id number] [address] [place] [address] Sep, Grief F43.20 [facility] [address] [facility] [id number] [address] [place] [address] Aug, Major depressive disorder, r ecurrent episode, moderate F33.1 [place] [id number] [place] [address] Aug, Bipolar 1 disorder, mixed F3 1.60 [place] [id number] [place] [address] Aug, Allergic rhinitis J30.9 ; Ce rvicalgia M54.2 and Low back pain M54.5 [facility] [address] [place] [id number] [address] [place] [address] Aug, Major depressive disorder, r ecurrent episode, moderate F33.1 [facility] [address] [place] [id number] [address] [place] [address] Aug, Sinusitis J32.9 and Tobacco 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 [facility] [address] [place] [id number] [address] [place] [address] Aug, [facility] [address] [id number] [address] [place] [address] Aug, Depressive disorder, not els ewhere classified F32.9 ; Hormone replacement therapy Z79.[address] scan, head R93.0 [facility] [address] [id number] [address] [place] [address] Aug, Major depressive disorder, r ecurrent episode, moderate F33.1 [facility] [address] [id number] [address] [place] [address] Jul, Major depressive disorder, r ecurrent episode, moderate F33.1 [facility] [address] [id number] [address] [place] [address] Jul, Abdominal pain R10.9 and Hyp ertension I10 [facility] [address] [id number] [address] [place] [address] Jul, [facility] [address] [id number] [address] [place] [address] Jul, Major depressive disorder, r ecurrent episode, moderate F33.1 [facility] [address] [id number] [address] [place] [address] Jul, [facility] [address] [id number] [address] [place] [address] Jul, [facility] [address] [id number] [address] [place] [address] Jun, [facility] [address] [id number] [address] [place] [address] Jun, Depressive disorder, not els ewhere classified F32.9 [facility] [address] [id number] [address] [place] [address] Jun, [facility] [address] [id number] [address] [place] [address] Jun, [facility] [address] [id number] [address] [place] [address] Jun, Arthralgia of hip, unspecifi ed laterality M25.559 ; Bruising, spontaneous R23.3 and Night sweats R61 [facility] [address] [id number] [address] [place] [address] Jun, [facility] [address] [id number] [address] [place] [address] Jun, [facility] [address] [id number] [address] [place] [address] May, [facility] [address] [id number] [address] [place] [address] May, Myalgia M79.1 and Screening, lipid Z13.220 [facility] [address] [id number] [address] [place] [address] Apr, Status post cervical spinal fusion Z98.1 ; Fibromyalgia M79.7 and Unsteady gait R26.81 [facility] [address] [id number] [address] [place] [address] Nov, [facility] [address] [id number] [address] [place] [address] Nov, [facility] [address] [id number] [address] [place] [address] October, [facility] [address] [id number] [address] [place] [address] October, [facility] [address] [id number] [address] [place] [address] October, [facility] [address] [id number] [address] [place] [address] October, [facility] [address] [id number] [address] [place] [address] October, [facility] [address] [id number] [address] [place] [address] October, Dysuria 788.1 ; Nausea 787.0 2 and Urinary tract infection 599.0 [facility] [address] [id number] [address] [place] [address] 14 Sep, 2014 [facility] [address] [id number] [address] [place] [address] Sep, [facility] [address] [id number] [address] [place] [address] Aug, [facility] [address] [id number] [address] [place] [address] Aug, [facility] [address] [id number] [address] [place] [address] 24 Aug, 2014 [facility] [address] [id number] [address] [place] [address] 24 Aug, 2014 [facility] [address] [id number] [address] [place] [address] Aug, [facility] [address] [id number] [address] [place] [address] Aug, [facility] [address] [id number] [address] [place] [address] Aug, [facility] [address] [id number] [address] [place] [id number] 19 Aug, 2014 [facility] [address] [id number] [address] [place] [address] 19 Aug, 2014 [facility] [address] [id number] [address] [place] [address] 18 Aug, 2014 [facility] [address] [id number] [address] [place] [id number] 18 Aug, 2014 [facility] [address] [id number] [address] [place] [id number] 13 Aug, 2014 [facility] [address] [id number] [address] [place] [address], [place] [address] 13 Aug, 2014 [facility] [address] [id number] [address] [place] [address], [place] [address] 11 Aug, 2014 [facility] [address] [id number] [address] [place] [address], [place] [address] 11 Aug, 2014 [facility] [address] [id number] [address] [place] [address], [place] [address] 06 Aug, 2014 [facility] [address] [id number] [address] [place] [address], [place] [address] 06 Aug, 2014 [facility] [address] [id number] [address] [place] [address], [place] [address] 05 Aug, 2014 [facility] [address] [id number] [address] [place] [address], [place] [address] Aug, 2014 [facility] [address] [id number] [address] [place] [address], [place] [address] 04 Aug, 2014 [facility] [address] [id number] [address] [place] [address], [place] [address] Aug, [facility] [address] [id number] [address] [place] [address], [place] [address] Aug, [facility] [address] [id number] [address] [place] [address], [place] [address] Jul, [facility] [address] [id number] [address] [place] [address], [place] [address] Jul, 2014 [facility] [address] [id number] [address] [place] [address], [place] [address] Jul, 2014 [facility] [address] [id number] [address] [place] [address], [place] [address] Jul, 2014 [facility] [address] [id number] [address] [place] [address], [place] [address] Jul, 2014 [facility] [address] [id number] [address] [place] [address], [place] [address] Jul, 2014 [facility] [address] [id number] [address] [place] [address], [place] [address] Jul, 2014 [facility] [address] [id number] [address] [place] [address], [place] [address] Jul, 2014 [facility] [address] [id number] [address] [place] [address], [place] [address] Jul, 2014 [facility] [address] [id number] [address] [place] [address], [place] [address] Jul, 2014 [facility] [address] [id number] [address] [place] [address], [place] [address] Jul, [facility] [address] [id number] [address] [place] [address], [place] [address] Jul, 2014 [facility] [address] [id number] [address] [place] [address], [place] [address] Jul, [facility] [address] [id number] [address] [place] [address], [place] [address] Jul, [facility] [address] [id number] [address] [place] [address], [place] [address] Jun, [facility] [address] [id number] [address] [place] [address], [place] [address] Jun, [facility] [address] [id number] [address] [place] [address], [place] [address] Jun, [facility] [address] [id number] [address] [place] [address], [place] [address] Jun, [facility] [address] [id number] [address] [place] [address], [place] [address] Jun, [facility] [address] [id number] [address] [place] [address], [place] [address] Jun, [facility] [address] [id number] [address] [place] [address], [place] [address] May, [facility] [address] [id number] [address] [place] [address], [place] [address] May, [facility] [address] [id number] [address] [place] [address], [place] [address] May, [facility] [address] [id number] [address] [place] [address], [place] [address] May, [facility] [address] [id number] [address] [place] [address], [place] [address] May, [facility] [address] [id number] [address] [place] [address], [place] [address] May, [facility] [address] [id number] [address] [place] [address], [place] [address] Apr, [facility] [address] [id number] [address] [place] [address], [place] [address] Apr, [facility] [address] [id number] [address] [place] [address], [place] [address] Apr, [facility] [address] [id number] [address] [place] [address], [place] [address] Apr, [facility] [address] [id number] [address] [place] [address], [place] [address] Apr, [facility] [address] [id number] [address] [place] [address], [place] [address] Apr, [facility] [address] [id number] [address] [place] [address], [place] [address] Mar, [facility] [address] [id number] [address] [place] [address], [place] [address] Mar, [facility] [address] [id number] [address] [place] [address], [place] [address] Mar, [facility] [address] [id number] [address] [place] [address], [place] [address] Mar, [facility] [address] [id number] [address] [place] [address], [place] [address] Mar, [facility] [address] [id number] [address] [place] [address], [place] [address] Mar, [facility] [address] [id number] [address] [place] [address], [place] [address] Mar, [facility] [address] [id number] [address] [place] [address], [place] [address] Mar, [facility] [address] [id number] [address] [place] [address], [place] [address] Mar, [facility] [address] [id number] [address] [place] [address], [place] [address] Mar, [facility] [address] [id number] [address] [place] [address], [place] [address] Mar, [facility] [address] [id number] [address] [place] [address], [place] [address] Mar, [facility] [address] [id number] [address] [place] [address], [place] [address] 30 Feb, 2013 [facility] [address] [id number] [address] [place] [address], [place] [address] 29 Feb, 2013 [facility] [address] [id number] [address] [place] [address], [place] [address] 29 Feb, 2013 [facility] [address] [id number] [address] [place] [address], [place] [address] 23 Feb, 2013 [facility] [address] [id number] [address] [place] [address], [place] [address] 23 Feb, 2013 [facility] [address] [id number] [address] [place] [address], [place] [address] 08 Feb, 2013 [facility] [address] [id number] [address] [place] [address], [place] [address] 08 Feb, 2013 [facility] [address] [id number] [address] [place] [address], [place] [address] Jan, [facility] [address] [id number] [address] [place] [id number] Jan, [facility] [address] [id number] [facility] [place] [address] Jan, [facility] [address] [id number] [address] [place] [address], [place] [address] Dec, [facility] [address] [id number] [address] [place] [address], [place] [address] Dec, [facility] [address] [id number] [address] [place] [address], [place] [address] Dec, [facility] [address] [id number] [address] [place] [address], [place] [address] Dec, [facility] [address] [id number] [address] [place] [address], [place] [address] Sep, [facility] [address] [address] [id number] [address] [place] [address], [place] [address] Sep, [facility] [address] [id number] [address] [place] [address], [place] [address] Sep, [facility] [address] [id number] [address] [place] [address], [place] [address] Sep, [facility] [address] [id number] [address] [place] [address], [place] [address] Sep, [facility] [address] [id number] [address] [place] [address], [place] [address] Sep, [facility] [address] [id number] [address] [place] [address], [place] [address] Sep, [facility] [address] [id number] [address] [place] [address], [place] [address] Sep, [facility] [address] [id number] [address] [place] [address], [place] [address] Aug, [facility] [address] [id number] [address] [place] [address], [place] [address] Aug, [facility] [address] [id number] [address] [place] [address], [place] [address] May, [facility] [address] [id number] [address] [place] [address], [place] [address] May, [facility] [address] [id number] [address] [place] [address], [place] [address] Apr, [facility] [address] [id number] [address] [place] [address], [place] [address] Apr, [facility] [address] [id number] [address] [place] [address], [place] [address] Apr, [facility] [address] [id number] [address] [place] [address], [place] [address] Apr, [facility] [address] [id number] [address] [place] [address], [place] [address] Apr, [facility] [address] [id number] [address] [place] [address], [place] [address] Apr, [facility] [address] [id number] [address] [place] [address], [place] [address] 18 May, 2012 [facility] [address] [id number] [address] [place] [address], [place] [address] 18 May, 2012 [facility] [address] [id number] [address] [place] [address], [place] [address] 15 May, 2012 [facility] [address] [id number] [address] [place] [address], [place] [address] 15 May, 2012 [facility] [address] [id number] [address] [place] [address], [place] [address] 13 May, 2012 [facility] [address] [id number] [address] [place] [address], [place] [address] 13 May, 2012 [facility] [address] [id number] [address] [place] [address], [place] [address] 13 Apr, 2012 [facility] [address] [id number] [address] [place] [address] [address] Apr, [facility] [address] [id number] [address] [place] [address], [place] [address] Apr, [facility] [address] [id number] [address] [place] [address], [place] [address] Apr, [facility] [address] [id number] [address] [place] [address], [place] [address] Apr, [facility] [address] [id number] [address] [place] [address], [place] [address] Apr, [facility] [address] [id number] [address] [place] [address], [place] [address] Apr, [facility] [address] [id number] [address] [place] [address], [place] [address] Apr, [facility] [address] [id number] [address] [place] [address], [place] [address] Apr, [facility] [address] [id number] [address] [place] [address], [place] [address] Apr, [facility] [address] [id number] [address] [place] [address], [place] [address] Mar, [facility] [address] [id number] [address] [place] [address] Mar, [facility] [address] [id number] [address] [place] [address] Mar, [facility] [address] [id number] [address] [place] [address] Mar, [facility] [address] [id number] [address] [place] [address] Mar, [facility] [address] [id number] [address] [place] [address] Mar, [facility] [address] [id number] [address] [place] [address] Mar, [facility] [address] [id number] [address] [place] [address], [place] [address] Mar, [facility] [address] [id number] [address] [place] [address], [place] [address] Mar, [facility] [address] [id number] [address] [place] [address], [place] [address] 25 Feb, 2012 [facility] [address] [id number] [address] [place] [address], [place] [address] 16 Feb, 2012 [facility] [address] [id number] [address] [place] [address], [place] [address] 11 Feb, 2012 [facility] [address] [id number] [address] [place] [address], [place] [address] Jan, [facility] [address] [id number] [address] [place] [address], [place] [address] Jan, [facility] [address] [id number] [address] [place] [address], [place] [address] Jan, [facility] [address] [id number] [address] [place] [address], [place] [address] Jan, [facility] [address] [id number] [address] [place] [address], [place] [address] Jan, [facility] [address] [id number] [address] [place] [address], [place] [address] Jan, [facility] [address] [id number] [address] [place] [address], [place] [address] Jan, [facility] [address] [id number] [address] [place] [address], [place] [address] Jan, [facility] [address] [id number] [address] [place] [address], [place] [address] Jan, [facility] [address] [id number] [address] [place] [address], [place] [address] Jan, [facility] [address] [id number] [address] [place] [address], [place] [address] Dec, [facility] [address] [id number] [address] [place] [address], [place] [address] Dec, [facility] [address] [id number] [address] [place] [address], [place] [address] Dec, [facility] [address] [id number] [address] [place] [address], [place] [address] Dec, [facility] [address] [id number] [address] [place] [address], [place] [address] Nov, [facility] [address] [id number] [address] [place] [address], [place] [address] Nov, [facility] [address] [id number] [address] [place] [address], [place] [address] Nov, [facility] [address] [id number] [address] [place] [address], [place] [address] October, [facility] [address] [id number] [address] [place] [address], [place] [address] October, [facility] [address] [id number] [address] [place] [address], [place] [address] October, [facility] [address] [id number] [address] [place] [address], [place] [address] October, [facility] [address] [id number] [address] [place] [address], [place] [address] October, [facility] [address] [id number] [address] [place] [address], [place] [address] October, [facility] [address] [id number] [address] [place] [address], [place] [address] Aug, [facility] [address] [id number] [address] [place] [address], [place] [address] Mar, [facility] [address] [id number] [address] [place] [address], [place] [address] 16 Nov, 2010 [facility] [address] [id number] [address] [address] May, [facility] [address] [facility] [id number] [address] [place] [address] May, [facility] [address] [facility] [id number] [address] [place] [address] Apr, [facility] [address] [facility] [id number] [address] [place] [address] Mar, [facility] [address] [facility] [id number] [address] [place] [address] Mar, IMMUNIZATIONS No Known Immunizations SOCIAL HISTORY Never Assessed REASON FOR VISIT had tic removed from asif yesterday on her left side. now has a blister below that area and reports it is very painful. [email or web address] PLAN OF CARE Activity Details Follow Up prn Reason: VITAL SIGNS Height 64 in 2017-11-01 Weight 164.2 lbs 2017-11-01 Temperature 98.6 degrees Fahrenheit 2017-11-01 Heart Rate 92 bpm 2017-11-01 Respiratory Rate 20 2017-11-01 BMI 28.18 kg/m2 2017-11-01 Blood pressure systolic 126 mmHg 2017-11-01 Blood pressure diastolic 72 mmHg 2017-11-01 MEDICATIONS Medication Instructions Dosage Frequency Start Date End Date Duration S tatus Fetzima 120 mg Orally Once a day TAKE 1 CAPSULE BY MOUTH DAILY 24h 30 days Active Voltaren 1 % Transdermal 4 times a day on neck Active Flunisolide 25 MCG/ACT (0.025%) Nasally Twice a day 2 sprays in each nostril 12h Sep, 30 day(s) Active Vitamin D3 2000 UNIT Orally Once a day as directed 24h Dec, Active Beclomethasone Dipropionate 80 MCG/ACT Nasally Once a day 2 puffs in each nostril 24h Sep, 30 day(s) Active Orally Once a day 1 capsule 24h Act mitchell Nitrofurantoin Monohyd Macro 100 mg Orally Once a day 1 capsule with food 24h Active Lidocaine-Prilocaine 2.5-2.5 % Active Ibuprofen 600 MG Orally 4 times a day 1 tablet with food or milk as needed 6h Sep, Jan, 30 days Active [id number] 1 MG Active Estradiol 2 MG Orally Once a day 1 tablet 24h Active Montelukast Sodium 10 mg Orally Once a day 1 tablet in the evening 24h October, 90 days Active Gabapentin 100 mg Orally 3 times a day 1 capsule 8h 07 Jul, 2017 Active Vagifem 10 MCG Vaginal Two times a Week 1 tablet 84 Active Myrbetriq 50 MG Orally Once a day 1 tablet 24h Active Depakote ER 500 mg Orally at bedtime 2 tabs 30 days Active Melatonin 5 mg Orally Once a day 2 tablets 24h May, Active Baclofen 20 mg Orally 2 times a day 1 tablet with food or milk 12h October, Feb, 30 days Active Magnesium 500 MG Orally Once a day 1 tablet with a meal 24h Dec, Active Mucinex 600 MG Orally every 12 hrs 1 tablet as needed 12h Active Probiotic Acidophilus Ac tive Oxybutynin Chloride ER 10 MG Orally Once a day 1 tablet 24h October, 30 day(s) Active Cetirizine HCl 10 mg Orally Once a day 1 tablet 24h Jan, 7 Jan, 90 days Active HydrOXYzine HCl 10 mg Orally BID prn anxiety, MAX 45 tabs monthly 1 t ablet 30 days Active Pantoprazole Sodium 20 MG TAKE 1 TABLET BY MOUTH ONCE DAILY 90 Active RESULTS No Results PROCEDURES Procedure Date Ordered Result Body Site [facility] VISIT ESTABLISHED PATIENT November 01, 2017 INSTRUCTIONS MEDICATIONS ADMINISTERED No Known Medications [...]
--- OUTSIDE RECORDS SUMMARY | 2019-06-19 05:35 | XMS REPORT ---
Author Author Sydnie MORTON Organization [facility] Address [address] [place] [address] Care Team Providers Care School Examiner Name Role Phone JOHN MORTON Unavailable PROBLEMS Type Condition ICD9-CM Code KMR11-YS Code Onset Dates Condition S tatus SNOMED Code Problem Hormone replacement therapy Z79.890 Ac tive 825871671 Problem Abnormal CT scan, head R93.0 Active 954475276 Problem Sensorineural hearing loss (SNHL) of both ears H90 .3 Active 858836354 Problem History of colon polyps Z86.010 Active 870045334 Problem Bruising, spontaneous R23.3 Active 060987831 Problem Generalized anxiety disorder F41.1 A ctive 26237348 Problem Arthralgia of hip, unspecified laterality M25.559 Active 59628255 Problem Hematuria, unspecified type R31.9 Ac tive 86206974 Problem Imbalance R26.89 Active 877524423 Problem Hammer toe of right foot M20.41 Activ e 049325363 Problem Plantar wart of right foot B07.0 Act mitchell [id number] Problem Sciatica of left side M54.32 Active 91372491 Problem Hyperlipidemia, unspecified hyperlipidemia type E7 8.5 Active 16962604 Problem Hypertension I10 Active 4799280 3 Problem Night sweats R61 Active 8189101 0 Problem Fibromyalgia M79.7 Active 4655947 7 Problem Major depressive disorder, recurrent episode, moderate F33.1 Active 023420143 Problem Acute left-sided low back pain with left-sided sciatica M54.42 Active 124754888 Problem Bladder spasm N32.89 Active 932527 006 Problem Gastritis without bleeding, unspecified chronicity, unspecified gastritis type K29.70 Active 621623553 Problem Bipolar 1 disorder, mixed F31.60 Acti ve 08280160 Problem Grief F43.20 Active 92975344 Problem Other chronic pain G89.29 Active 8 3062241 Problem Allergic rhinitis J30.9 Active 61 195026 Problem Hot flashes due to menopause N95.1 A ctive 837542824 Problem Ataxia R27.0 Active 46603985 Problem Hearing loss, unspecified laterality H91.90 Active 82057531 ALLERGIES No Information ENCOUNTERS Encounter Location Date Diagnosis [facility] [address] [facility] [id number] [address] [place] [address] Mar, [facility] [address] [facility] [id number] [address] [place] [address] Feb, [facility] [address] [facility] [id number] [address] [place] [address] Feb, [facility] [address] [facility] [id number] [address] [place] [address] Jan, [facility] [address] [facility] [id number] [address] [place] [address] Jan, [facility] [address] [id number] [address] [place] [address] Jan, [facility] [address] [facility] [id number] [address] [place] [address] Jan, Bipolar 1 disorder, mixed F3 1.60 [facility] [address] [place] [id number] [address] [place] [address] Jan, Bipolar 1 disorder, mixed F3 1.60 [facility] [address] [facility] [id number] [address] [place] [address] Dec, Bipolar 1 disorder, mixed F3 1.60 ; Generalized anxiety disorder F41.1 and Other blueprinter (current) drug therapy Z79.899 [facility] [address] [facility] [id number] [address] [place] [address] Dec, [place] [facility] dr ug therapy Z79.899 [facility] [address] [facility] [id number] [address] [place] [address] Dec, Bipolar 1 disorder, mixed F3 1.60 [facility] [address] [place] [id number] [address] [place] [address] Dec, Bipolar 1 disorder, mixed F3 1.60 [facility] [address] [place] [id number] Nov, Bipolar 1 disorder, mixed F3 1.60 [facility] [address] [address] Nov, Bipolar 1 disorder, mixed F3 1.60 [facility] [address] [address] Nov, Bipolar 1 disorder, mixed F3 1.60 [place] [address] [address] Nov, Allergic rhinitis J30.9 [place] [address] [address] Nov, Allergic rhinitis J30.9 [facility] [address] [address] Nov, [facility] [address] [address] Nov, Bipolar 1 disorder, mixed F3 1.60 [facility] [address] [place] [id number] [place] [address] Nov, Fibromyalgia M79.7 and Aller gic rhinitis J30.9 [facility] [address] [place] [id number] [address] [place] [address] October, Bipolar 1 disorder, mixed F3 1.60 [facility] [address] [place] [id number] [address] [place] [address] October, Acute nasopharyngitis J00 [facility] [address] [place] [id number] [place] [address] October, Bitten or stung by nonvenomo us insect and other nonvenomous arthropods, initial encounter W57.XXXA and Insect bite (nonvenomous) of abdominal wall, initial encounter S30.861A [facility] [address] [facility] [id number] [address] [place] [address] October, Insect bite (nonvenomous) of abdominal wall, initial encounter S30.861A ; Bitten or stung by nonvenomous insect and other nonvenomous arthropods, initial encounter W57.XXXA ; Allergic rhinitis J30.9 and Low back pain M54.5 [facility] [address] [id number] [address] [place] [address] October, Bipolar 1 disorder, mixed F3 1.60 [facility] [address] [id number] [address] [place] [address] October, [facility] [address] [id number] [address] [place] [address] October, [facility] [address] [facility] [id number] [address] [place] [address] October, Bipolar 1 disorder, mixed F3 1.60 [facility] [address] [id number] [address] [place] [address] Sep, Bipolar 1 disorder, mixed F3 1.60 [facility] [address] [facility] [id number] [address] [place] [address] Sep, Other chronic pain G89.29 [facility] [address] [id number] [address] [place] [address] Sep, [facility] [address] [facility] [id number] [address] [place] [address] Sep, Bipolar 1 disorder, mixed F3 1.60 [facility] [address] [facility] [id number] [address] [place] [address] Sep, Allergic rhinitis J30.9 and Sciatica of left side M54.32 [facility] [address] [facility] [id number] [address] [place] [address] Sep, Bipolar 1 disorder, mixed F3 1.60 [facility] [address] [facility] [id number] [address] [place] [address] Sep, Bipolar 1 disorder, mixed F3 1.60 and Generalized anxiety disorder F41.1 [facility] [address] [facility] [id number] [address] [place] [address] Aug, [facility] [address] [place] [id number] [address] [place] [address] Aug, Bipolar 1 disorder, mixed F3 1.60 [facility] [address] [facility] [id number] [address] [place] [address] Aug, Bipolar 1 disorder, mixed F3 1.60 [facility] [address] [place] [id number] [address] [place] [address] Aug, [facility] [address] [place] [id number] [address] [place] [address] Aug, Generalized anxiety disorder F41.1 [facility] [address] [place] [id number] [address] [place] [address] Aug, Bipolar 1 disorder, mixed F3 1.60 [facility] [address] [facility] [id number] [address] [place] [address] Aug, Plantar wart of right foot B 07.0 [facility] [address] [facility] [id number] [address] [place] [address] Aug, Bipolar 1 disorder, mixed F3 1.60 [facility] [address] [facility] [id number] [address] [place] [address] Jul, Bipolar 1 disorder, mixed F3 1.60 [facility] [address] [facility] [id number] [address] [place] [address] Jul, [facility] [address] [place] [id number] [address] [place] [address] 14 Jul, 2017 Bipolar 1 disorder, mixed F3 1.60 [facility] [address] [facility] [id number] [address] [place] [address] 09 Jul, 2017 Generalized anxiety disorder F41.1 [facility] [address] [facility] [id number] [address] [place] [address] 07 Jul, 2017 Bipolar 1 disorder, mixed F3 1.60 [facility] [address] [facility] [id number] [address] [place] [address] 07 Jul, 2017 Acute left-sided low back pa in with left-sided sciatica M54.42 [place] [address] [facility] [id number] [address] [place] [address] 05 Jul, 2017 Coccydynia M53.3 [place] [address] [facility] [id number] [address] [place] [address] Jun, Bipolar 1 disorder, mixed F3 1.60 [facility] [address] [facility] [id number] [address] [place] [address] Jun, Acute nasopharyngitis J00 [place] [address] [facility] [id number] [address] [place] [address] Jun, Bipolar 1 disorder, mixed F3 1.60 [place] [address] [facility] [id number] [address] [place] [address] Jun, Fibromyalgia M79.7 [place] [address] [facility] [id number] [address] [place] [address] Jun, Bipolar 1 disorder, mixed F3 1.60 [place] [address] [facility] [id number] [address] [place] [address] Jun, Fibromyalgia M79.7 and Bipol ar 1 disorder, mixed F31.60 [place] [address] [facility] [id number] [address] [place] [address] May, Bipolar 1 disorder, mixed F3 1.60 ; Generalized anxiety disorder F41.1 and Other blueprinter (current) drug therapy Z79.899 [facility] [address] [facility] [id number] [address] [place] [address] May, Bipolar 1 disorder, mixed F3 1.60 [facility] [address] [address] 14 May, 2017 Cough R05 and Body aches R52 [facility] [address] [address] 10 May, 2017 Bladder spasm N32.89 and Acu te cystitis without hematuria N30.00 [place] [address] [address] 07 May, 2017 Bipolar 1 disorder, mixed F3 1.60 [place] [address] [address] Apr, [place] [address] [address] Apr, Major depressive disorder, r ecurrent episode, moderate F33.1 and Encounter for immunization Z23 [place] [address] [address] Apr, Bipolar 1 disorder, mixed F3 1.60 [place] [address] [address] Apr, Bipolar 1 disorder, mixed F3 1.60 [place] [address] [address] 16 Apr, 2017 Bipolar 1 disorder, mixed F3 1.60 [place] [address] [address] Apr, Yeast vaginitis B37.3 [place] [address] [address] 09 Apr, 2017 Bipolar 1 disorder, mixed F3 1.60 [facility] [address] [address] 07 Apr, 2017 Encounter for immunization Z 23 and Cellulitis L03.90 [place] [address] [address] Apr, Bipolar 1 disorder, mixed F3 1.60 [place] [address] [place] [id number] [address] [place] [address] Mar, Bipolar 1 disorder, mixed F3 1.60 [place] [address] [place] [id number] [address] [place], [place] [address] Mar, Bipolar 1 disorder, mixed F3 1.60 [place] [address] Mar, Imbalance R26.89 [address] Encount er for immunization Z23 [place] [address] [place] [id number] [place] [address] Mar, Generalized anxiety disorder F41.1 [place] [address] [place] [id number] Mar, Bipolar 1 disorder, mixed F3 1.60 [place] [address] [address] Mar, Generalized anxiety disorder F41.1 [place] [address] [place] [id number] [address] [place] [address] Mar, Bipolar 1 disorder, mixed F3 1.60 [place] [address] [address] Mar, Bipolar 1 disorder, mixed F3 1.60 [place] [address] [address] Feb, Bipolar 1 disorder, mixed F3 1.60 [place] [address] [place] [id number] [address] [place] [address] Feb, Bipolar 1 disorder, mixed F3 1.60 and Generalized anxiety disorder F41.1 [place] [address] [place] [id number] [address] [place], [place] [phone] Feb, Gastritis without bleeding, unspecified chronicity, unspecified gastritis type K29.70 ; Hammer toe of right foot M20.41 and Other viral warts B07.8 [place] [address] [place] [id number] [address] [place] [address] 20 Feb, 2017 Bipolar 1 disorder, mixed F3 1.60 [facility] [address] [place] [id number] [address] [place] [address] 13 Feb, 2017 Bipolar 1 disorder, mixed F3 1.60 [facility] [address] [place] [id number] [address] [place] [address] 05 Feb, 2017 Bipolar 1 disorder, mixed F3 1.60 [facility] [address] [place] [id number] [place] [address] Jan, Encounter for screening mamm ogram for breast cancer Z12.31 ; Other viral warts B07.[address] J[address].9 [facility] [address] [place] [id number] [address] [place] [address] Jan, Bipolar 1 disorder, mixed F3 1.60 [place] [address] [address] Jan, Bipolar 1 disorder, mixed F3 1.60 [facility] [address] [place] [id number] [address] [place] [address] Jan, [facility] [address] [place] [id number] [address] [place] [address] Jan, Bipolar 1 disorder, mixed F3 1.60 [facility] [address] [place] [id number] [address] [place] [address] Jan, Bipolar 1 disorder, mixed F3 1.60 [facility] [address] [place] [id number] [address] [place] [address] Jan, Allergic rhinitis J30.9 ; He maturia R31.9 and Colon cancer screening Z12.11 [facility] [address] [facility] [id number] [address] [place] [address] Dec, Bipolar 1 disorder, mixed F3 1.60 [facility] [address] [place] [id number] [address] [place] [address] Dec, Bipolar 1 disorder, mixed F3 1.60 ; Generalized anxiety disorder F41.1 and Other [place] [facility] [place] drug therapy Z79.899 [facility] [address] [facility] [id number] [address] [place] [address] Dec, Bipolar 1 disorder, mixed F3 1.60 [facility] [address] [facility] [id number] [address] [place] [address] Dec, Bipolar 1 disorder, mixed F3 1.60 [facility] [address] [facility] [id number] [address] [place] [address] Dec, Bipolar 1 disorder, mixed F3 1.60 [place] [address] [place] [id number] [address] [place] [address] Dec, Low back pain M54.5 and Recu rrent urinary tract infection N39.0 [place] [address] [place] [id number] [address] [place] [address] Nov, Bipolar 1 disorder, mixed F3 1.60 [facility] [address] [facility] [id number] [address] [place] [address] Nov, Bipolar 1 disorder, mixed F3 1.60 [facility] [address] [facility] [id number] [address] [place] [address] Nov, Bipolar 1 disorder, mixed F3 1.60 [facility] [address] [place] [id number] [address] [place] [address] Nov, Bipolar 1 disorder, mixed F3 1.60 [facility] [address] [facility] [id number] [address] [place] [address] Nov, [facility] [address] [facility] [id number] [address] [place] [address] Nov, Anesthesia of skin R20.0 ; F requent UTI N39.0 ; Tobacco abuse Z72.0 and Colon cancer screening Z12.11 [facility] [address] [facility] [id number] [address] [place] [address] Nov, Bipolar 1 disorder, mixed F3 1.60 [facility] [address] [facility] [id number] [address] [place] [address] October, Bipolar 1 disorder, mixed F3 1.60 [facility] [address] [facility] [id number] [address] [place] [address] October, Bipolar 1 disorder, mixed F3 1.60 [facility] [address] [facility] [id number] [address] [place] [address] October, Bipolar 1 disorder, mixed F3 1.60 [facility] [address] [facility] [id number] [address] [place] [address] October, Bipolar 1 disorder, mixed F3 1.60 [facility] [address] [place] [id number] [address] [place] [address] October, Bipolar 1 disorder, mixed F3 1.60 [facility] [address] [place] [id number] [address] [place] [address] October, Cervicalgia M54.2 and Bipola r 1 disorder, mixed F31.60 [facility] [address] [facility] [id number] [address] [place] [address] October, Hypertension I10 ; Hyperlipi demia, unspecified hyperlipidemia type E78.5 and Family history of thyroid disease Z83.49 [facility] [address] [place] [id number] [address] [place] [address] October, [facility] [address] [facility] [id number] [address] [place] [address] October, Hypertension I10 ; Hyperlipi demia, unspecified hyperlipidemia type E78.5 and Family history of thyroid problem Z83.49 [facility] [address] [facility] [id number] [address] [place] [address] October, Bipolar 1 disorder, mixed F3 1.60 [facility] [address] [facility] [id number] [address] [place] [address] Sep, Bipolar 1 disorder, mixed F3 1.60 [facility] [address] [place] [address] Sep, Bipolar 1 disorder, mixed F3 1.60 [facility] [address] [address] Sep, Bipolar 1 disorder, mixed F3 1.60 [facility] [address] [address] Sep, History of colon polyps Z86. 010 and Hematochezia K92.1 [place] [address] [address] Sep, Major depressive disorder, r ecurrent episode, moderate F33.1 [place] [address] [address] Sep, Bipolar 1 disorder, mixed F3 1.60 [place] [address] [address] Aug, Hot flashes due to menopause N95.1 [place] [address] [address] Aug, Bipolar 1 disorder, mixed F3 1.60 [place] [address] [address] Aug, [place] [address] [address] Aug, Bipolar 1 disorder, mixed F3 1.60 [place] [address] [address] Aug, Bipolar 1 disorder, mixed F3 1.60 [place] [address] [address] Aug, Hot flashes due to menopause N95.1 ; Cervicalgia M54.[address] [facility] [address] [place] [id number] [address] [place] [address] Jul, Bipolar 1 disorder, mixed F3 1.60 [facility] [address] [address] Jul, Bipolar 1 disorder, mixed F3 1.60 [place] [address] [place] [address] Jul, Bipolar 1 disorder, mixed F3 1.60 [place] [address] [address] Jul, Bipolar 1 disorder, mixed F3 1.60 [place] [address] [address] Jul, Bipolar 1 disorder, mixed F3 1.60 [place] [address] [address] 08 Jul, 2016 Cervicalgia M54.2 ; Tremor R 25.1 ; Hearing abnormally acute, unspecified laterality H93.239 ; Alopecia L65.9 ; Encounter for immunization Z23 and Family history of thyroid disease Z83.49 [place] [address] [address] Jul, Bipolar 1 disorder, mixed F3 1.60 [place] [address] [id number] Jun, [place] [address] [id number] Jun, Hearing disorder, unspecifie d laterality H93.299 [place] [address] [id number] Jun, Bipolar 1 disorder, mixed F3 1.60 [place] [address] [address] Jun, Bipolar 1 disorder, mixed F3 1.60 [place] [address] [address] Jun, Allergic rhinitis J30.9 [place] [address] [place] [address] Jun, Bipolar 1 disorder, mixed F3 1.60 [facility] [address] [id number] [address] [place] [id number] Jun, Bipolar 1 disorder, mixed F3 1.60 [facility] [address] [facility] [id number] [address] [place] [id number] Jun, Allergic rhinitis J30.9 [facility] [address] [id number] [address] [place] [id number] Jun, Allergic rhinitis J30.9 [facility] [address] [id number] [address] [place] [id number] Jun, Bipolar 1 disorder, mixed F3 1.60 [facility] [address] [facility] [id number] [address] [place] [id number] May, Bipolar 1 disorder, mixed F3 1.60 [facility] [address] [id number] [address] [place] [id number] May, Bipolar 1 disorder, mixed F3 1.60 [facility] [address] [id number] [address] [place] [id number] May, [facility] [address] [facility] [id number] [address] [place] [id number] May, Bipolar 1 disorder, mixed F3 1.60 [facility] [address] [id number] [address] [place] [id number] May, Bipolar 1 disorder, mixed F3 1.60 [facility] [facility] [address] [id number] [address] [place] [address] May, [facility] [address] [facility] [id number] [address] [place] [address] May, [facility] [address] [facility] [id number] [address] [place] [address] May, [facility] [address] [facility] [id number] [address] [place] [address] May, Abdominal pain, unspecified location R10.9 [facility] [address] [address] May, [facility] [address] [address] Apr, Hematuria R31.9 ; Ataxia R27 .0 and Hearing loss, unspecified laterality H91.90 [facility] [address] [address] Apr, Bipolar 1 disorder, mixed F3 1.60 [facility] [address] [address] Apr, Acute effusion of both middl e ears H65.193 [place] [address] [address] Apr, Hematuria R31.9 [address]el[address]p hritis N12 [facility] [address] [address] Apr, [place] [address] [address] Mar, Bipolar 1 disorder, mixed F3 1.60 [place] [address] [address] Mar, [facility] [address] [address] Mar, Bipolar 1 disorder, mixed F3 1.60 [place] [address] [address] Mar, Bipolar 1 disorder, mixed F3 1.60 [place] [address] [address] Mar, Encounter for immunization Z 23 and Gastritis without bleeding, unspecified chronicity, unspecified gastritis type K29.70 [facility] [address] [address] Mar, Bipolar 1 disorder, mixed F3 1.60 and Grief F43.20 [place] [address] Mar, Gastritis without bleeding, unspecified chronicity, unspecified gastritis type K29.70 [place] [address] [place] [id number] [address] [place] [id number] Mar, Bipolar 1 disorder, mixed F3 1.60 [place] [address] [place] [id number] [place], [place] [id number] Mar, Gastritis without bleeding, unspecified chronicity, unspecified gastritis type K29.70 [place] [address] [place] [id number] [place] [id number] Mar, [place] [address] [place] [id number] [place] [id number] Feb, Bipolar 1 disorder, mixed F3 1.60 [place] [address] [place] [id number] [place] [address] Feb, Bipolar 1 disorder, mixed F3 1.60 and Grief F43.20 [place] [address] [place] [id number] [place] [address] Feb, Gastritis without bleeding, unspecified chronicity, unspecified gastritis type K29.70 [place] [address] [place] [id number] [address] [place], [place] [address] 14 Feb, 2016 Bipolar 1 disorder, mixed F3 1.60 [facility] [address] [facility] [id number] [address] [place] [address] 09 Feb, 2016 Gastroesophageal reflux dise ase, esophagitis presence not specified K21.9 [place] [address] [place] [id number] [address] [place] [address] Jan, Bipolar 1 disorder, mixed F3 1.60 [place] [address] [place] [id number] [address] [place], [place] [address] Jan, Bipolar 1 disorder, mixed F3 1.60 and Unsteady gait R26.81 [facility] [address] [id number] [address] [place] [address] Jan, Bipolar 1 disorder, mixed F3 1.60 [facility] [address] [facility] [id number] [address] [place] [address] Jan, Bipolar 1 disorder, mixed F3 1.60 and Other [place] [facility] (current[facility] drug therapy Z79.899 [facility] [address] [facility] [id number] [address] [place] [address] Jan, Bipolar 1 disorder, mixed F3 1.60 [place] [address] [facility] [id number] [address] [place] [address] Jan, Bipolar 1 disorder, mixed F3 1.60 [place] [address] [place] [id number] [address] [place] [address] Jan, Bipolar 1 disorder, mixed F3 1.60 ; Grief F43.20 and Other [employer] (current) drug therapy Z79.899 [facility] [address] [facility] [id number] [address] [place] [address] Jan, Bipolar 1 disorder, mixed F3 1.60 [facility] [address] [place] [id number] [address] [place] [address] Dec, [facility] [address] [facility] [id number] [address] [place] [address] Dec, Bipolar 1 disorder, mixed F3 1.60 ; Vitamin D deficiency, unspecified E55.9 ; H/O allergic rhinitis Z87.09 ; Other chronic pain G89.29 and Dorsalgia, unspecified M54.9 [facility] [address] [facility] [id number] [address] [place] [address] Dec, [facility] [address] [facility] [id number] [address] [place] [address] Dec, Bipolar 1 disorder, mixed F3 1.60 [facility] [address] [place] [id number] [address] [place] [address] Dec, Major depressive disorder, r ecurrent episode, moderate F33.1 [facility] [address] [facility] [id number] [address] [place] [address] Dec, Major depressive disorder, r ecurrent episode, moderate F33.1 [facility] [address] [facility] [id number] [address] [place] [address] Nov, [facility] [address] [facility] [id number] [address] [place] [address] Nov, Bipolar 1 disorder, mixed F3 1.60 [place] [address] [facility] [id number] [address] [place] [address] Nov, Major depressive disorder, r ecurrent episode, moderate F33.1 [place] [address] [place] [id number] [address] [place] [address] Nov, Cervicalgia M54.2 ; Arthralg ia of hip, unspecified laterality M25.559 ; Allergic rhinitis J30.9 and Hormone replacement therapy Z79.890 [facility] [address] [facility] [id number] [address] [place] [address] Nov, Other seasonal allergic rhin itis J30.2 [facility] [address] [place] [id number] [address] [place] [address] October, Major depressive disorder, r ecurrent episode, moderate F33.1 [facility] [address] [facility] [id number] [address] [place] [address] October, Major depressive disorder, r ecurrent episode, moderate F33.1 and Arthralgia of hip, unspecified laterality M25.559 [place] [address] [facility] [id number] [address] [place] [address] October, Grief F43.20 ; Hypertension I10 ; Hyperlipidemia, unspecified hyperlipidemia type E78.5 ; Other chronic pain G89.29 and Allergic rhinitis, unspecified allergic rhinitis type J30.9 [facility] [address] [facility] [id number] [address] [place] [address] October, Major depressive disorder, r ecurrent episode, moderate F33.1 [place] [address] [facility] [id number] [address] [place] [address] Sep, Major depressive disorder, r ecurrent episode, moderate F33.1 [facility] [address] [facility] [id number] [address] [place] [address] Sep, [facility] [address] [place] [id number] [address] [place] [address] Sep, Major depressive disorder, r ecurrent episode, moderate F33.1 [place] [address] [facility] [id number] [address] [place] [address] Sep, Grief F43.20 [place] [address] [place] [id number] [address] [place] [address] Aug, Major depressive disorder, r ecurrent episode, moderate F33.1 [place] [address] [facility] [id number] [address] [place] [address] Aug, Bipolar 1 disorder, mixed F3 1.60 [place] [address] [place] [id number] [address] [place] [address] Aug, Allergic rhinitis J30.9 ; Ce rvicalgia M54.2 and Low back pain M54.5 [facility] [address] [place] [id number] [address] [place] [address] Aug, Major depressive disorder, r ecurrent episode, moderate F33.1 [facility] [address] [facility] [id number] [address] [place] [address] Aug, Sinusitis J32.9 and Tobacco 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 [facility] [address] [facility] [id number] [address] [place] [address] Aug, [facility] [address] [facility] [id number] [address] [place] [address] Aug, Depressive disorder, not els ewhere classified F32.9 ; Hormone replacement therapy Z79.[address] scan, head R93.0 [facility] [address] [id number] [address] [place] [address] Aug, Major depressive disorder, r ecurrent episode, moderate F33.1 [facility] [address] [id number] [address] [place] [address] Jul, Major depressive disorder, r ecurrent episode, moderate F33.1 [facility] [address] [id number] [address] [place] [address] Jul, Abdominal pain R10.9 and Hyp ertension I10 [facility] [address] [id number] [address] [place] [address] Jul, [facility] [address] [id number] [address] [place] [address] Jul, Major depressive disorder, r ecurrent episode, moderate F33.1 [facility] [address] [id number] [address] [place] [address] Jul, [facility] [address] [id number] [address] [place] [address] Jul, [facility] [address] [id number] [address] [place] [address] Jun, [facility] [address] [id number] [address] [place] [address] Jun, Depressive disorder, not els ewhere classified F32.9 [facility] [address] [id number] [address] [place] [address] Jun, [facility] [address] [id number] [address] [place] [address] Jun, [facility] [address] [id number] [address] [place] [address] Jun, Arthralgia of hip, unspecifi ed laterality M25.559 ; Bruising, spontaneous R23.[address] [facility] [address] [id number] [address] [place] [address] Jun, [facility] [address] [facility] [id number] [address] [place] [address] Jun, [facility] [address] [facility] [id number] [address] [place] [address] May, [facility] [address] [facility] [id number] [address] [place] [address] May, Myalgia M79.1 and Screening, lipid Z13.220 [facility] [address] [place] [id number] [address] [place] [address] Apr, Status post cervical spinal fusion Z98.1 ; Fibromyalgia M79.7 and Unsteady gait R26.81 [facility] [address] [facility] [id number] [address] [place] [address] Nov, [facility] [address] [facility] [id number] [address] [place] [address] Nov, [facility] [address] [facility] [id number] [address] [place] [address] October, [facility] [address] [facility] [id number] [address] [place] [address] October, [facility] [address] [facility] [id number] [address] [place] [address] October, [facility] [address] [facility] [id number] [address] [place] [address] October, [facility] [address] [facility] [id number] [address] [place] [address] October, [facility] [address] [facility] [id number] [address] [place] [address] October, Dysuria 788.1 ; Nausea 787.0 2 and Urinary tract infection 599.0 [facility] [address] [id number] [address] [place] [address], [place] [address] 14 Sep, 2014 [facility] [address] [id number] [address] [place] [address], [place] [address] 13 Sep, 2014 [facility] [address] [id number] [address] [place] [address], [place] [address] 25 Aug, 2014 [facility] [address] [id number] [address] [place] [address], [place] [address] 25 Aug, 2014 [facility] [address] [id number] [address] [place] [address], [place] [address] 24 Aug, 2014 [facility] [address] [id number] [address] [place] [address], [place] [address] 24 Aug, 2014 [facility] [address] [id number] [address] [place] [address], [place] [address] 23 Aug, 2014 [facility] [address] [id number] [address] [place] [address], [place] [address] 19 Aug, 2014 [facility] [address] [id number] [address] [place] [address], [place] [address] 19 Aug, 2014 [facility] [address] [id number] [address] [place] [address], [place] [address] 19 Aug, 2014 [facility] [address] [id number] [address] [place] [address], [place] [address] 19 Aug, 2014 [facility] [address] [id number] [address] [place] [address], [place] [address] 18 Aug, 2014 [facility] [address] [id number] [address] [place] [address], [place] [address] 18 Aug, 2014 [facility] [address] [id number] [address] [place] [address], [place] [address] 13 Aug, 2014 [facility] [address] [id number] [address] [place] [address], [place] [address] 13 Aug, 2014 [facility] [address] [id number] [address] [place] [address], [place] [address] 11 Aug, 2014 [facility] [address] [id number] [address] [place] [address], [place] [address] Aug, [facility] [address] [id number] [address] [place] [address], [place] [address] Aug, 2014 [facility] [address] [id number] [address] [place] [address], [place] [address] Aug, 2014 [facility] [address] [id number] [address] [place] [address], [place] [address] Aug, 2014 [facility] [address] [id number] [address] [place] [address], [place] [address] Aug, 2014 [facility] [address] [id number] [address] [place] [address], [place] [address] Aug, 2014 [facility] [address] [id number] [address] [place] [address], [place] [address] Aug, [facility] [address] [id number] [address] [place] [address], [place] [address] Aug, [facility] [address] [id number] [address] [place] [address], [place] [address] Jul, [facility] [address] [id number] [address] [place] [address], [place] [address] Jul, [facility] [address] [id number] [address] [place] [address], [place] [address] Jul, [facility] [address] [id number] [address] [place] [address], [place] [address] Jul, [facility] [address] [id number] [address] [place] [address], [place] [address] Jul, [facility] [address] [id number] [address] [place] [address], [place] [address] Jul, [facility] [address] [id number] [address] [place] [address], [place] [address] Jul, [facility] [address] [id number] [address] [place] [address], [place] [address] Jul, 2014 [facility] [address] [id number] [address] [place] [address], [place] [address] Jul, 2014 [facility] [address] [id number] [address] [place] [address], [place] [address] Jul, 2014 [facility] [address] [id number] [address] [place] [address], [place] [address] Jul, 2014 [facility] [address] [id number] [address] [place] [address], [place] [address] Jul, 2014 [facility] [address] [id number] [address] [place] [address], [place] [address] Jul, 2014 [facility] [address] [id number] [address] [place] [address], [place] [address] Jul, 2014 [facility] [address] [id number] [address] [place] [address], [place] [address] Jun, [facility] [address] [id number] [address] [place] [address], [place] [address] Jun, [facility] [address] [id number] [address] [place] [address], [place] [address] Jun, [facility] [address] [id number] [address] [place] [address], [place] [address] Jun, [facility] [address] [id number] [address] [place] [address], [place] [address] Jun, [facility] [address] [id number] [address] [place] [address], [place] [address] Jun, [facility] [address] [id number] [address] [place] [address], [place] [address] May, [facility] [address] [id number] [address] [place] [address], [place] [address] May, [facility] [address] [id number] [address] [place] [address], [place] [address] May, [facility] [address] [id number] [address] [place] [address], [place] [address] May, [facility] [address] [id number] [address] [place] [address], [place] [address] May, [facility] [address] [id number] [address] [place] [address], [place] [address] May, [facility] [address] [id number] [address] [place] [address], [place] [address] Apr, [facility] [address] [id number] [address] [place] [address], [place] [address] Apr, [facility] [address] [id number] [address] [place] [address], [place] [address] Apr, [facility] [address] [id number] [address] [place] [address], [place] [address] Apr, [facility] [address] [id number] [address] [place] [address], [place] [address] Apr, [facility] [address] [id number] [address] [place] [address], [place] [address] Apr, [facility] [address] [id number] [address] [place] [address], [place] [address] Mar, [facility] [address] [id number] [address] [place] [address], [place] [address] Mar, [facility] [address] [id number] [address] [place] [address] Mar, [facility] [address] [id number] [address] [place] [address], [place] [address] Mar, [facility] [address] [id number] [address] [place] [address], [place] [address] Mar, [facility] [address] [id number] [address] [place] [address], [place] [address] Mar, [facility] [address] [id number] [address] [place] [address] [place] [address] Mar, [facility] [address] [id number] [address] [place] [address], [place] [address] Mar, [facility] [address] [id number] [address] [place] [address], [place] [address] Mar, [facility] [address] [id number] [address] [place] [address], [place] [address] Mar, [facility] [address] [id number] [address] [place] [address], [place] [address] Mar, [facility] [address] [id number] [address] [place] [address], [place] [address] Mar, [facility] [address] [id number] [address] [place] [address], [place] [address] 30 Feb, 2013 [facility] [address] [id number] [address] [place] [address], [place] [address] 29 Feb, 2013 [facility] [address] [id number] [address] [place] [address], [place] [address] 29 Feb, 2013 [facility] [address] [id number] [address] [place] [address], [place] [address] 23 Feb, 2013 [facility] [address] [id number] [address] [place] [address], [place] [address] 23 Feb, 2013 [facility] [address] [id number] [address] [place] [address], [place] [address] 08 Feb, 2013 [facility] [address] [id number] [address] [place] [address], [place] [address] 08 Feb, 2013 [facility] [address] [id number] [address] [place] [address], [place] [address] Jan, [facility] [address] [id number] [address] [place] [address], [place] [address] Jan, [facility] [address] [id number] [address] [place] [address], [place] [address] 16 Jan, 2014 [facility] [address] [id number] [address] [place] [address] Dec, [facility] [address] [id number] [facility] [place] [address] Dec, [facility] [address] [id number] [address] [place] [address], [place] [address] Dec, [facility] [address] [id number] [address] [place] [address], [place] [address] Dec, [facility] [address] [id number] [address] [place] [address], [place] [address] Sep, [facility] [address] [id number] [address] [place] [address], [place] [address] Sep, [facility] [address] [id number] [address] [place] [address], [place] [address] Sep, [facility] [address] [id number] [address] [place] [address], [place] [address] Sep, [facility] [address] [id number] [address] [place] [address], [place] [address] Sep, [facility] [address] [id number] [address] [place] [address], [place] [address] Sep, [facility] [address] [id number] [address] [place] [address], [place] [address] Sep, [facility] [address] [id number] [address] [place] [address], [place] [address] Sep, [facility] [address] [id number] [address] [place] [address], [place] [address] Aug, [facility] [address] [id number] [address] [place] [address], [place] [address] Aug, [facility] [address] [id number] [address] [place] [address], [place] [address] May, [facility] [address] [id number] [address] [place] [address], [place] [address] May, [facility] [address] [id number] [address] [place] [address], [place] [address] Apr, [facility] [address] [id number] [address] [place] [address], [place] [address] Apr, [facility] [address] [id number] [address] [place] [address], [place] [address] Apr, [facility] [address] [id number] [address] [place] [address], [place] [address] Apr, [facility] [address] [id number] [address] [place] [address], [place] [address] Apr, [facility] [address] [id number] [address] [place] [address], [place] [address] Apr, [facility] [address] [id number] [address] [place] [address], [place] [address] May, [facility] [address] [id number] [address] [place] [address], [place] [address] 18 May, 2012 [facility] [address] [id number] [address] [place] [address], [place] [address] 15 May, 2012 [facility] [address] [id number] [address] [place] [address], [place] [address] 15 May, 2012 [facility] [address] [id number] [address] [place] [address], [place] [address] 13 May, 2012 [facility] [address] [id number] [address] [place] [address], [place] [address] 13 May, 2012 [facility] [address] [id number] [address] [place] [address], [place] [address] 13 Apr, 2012 [facility] [address] [id number] [address] [place] [address], [place] [address] 13 Apr, 2012 [facility] [address] [id number] [address] [place] [address], [place] [address] 08 Apr, 2012 [facility] [address] [id number] [address] [place] [address], [place] [address] 08 Apr, 2012 [facility] [address] [id number] [address] [place] [address], [place] [address] 08 Apr, 2012 [facility] [address] [id number] [address] [place] [address], [place] [address] Apr, [facility] [address] [id number] [address] [place] [address], [place] [address] Apr, [facility] [address] [id number] [address] [place] [address], [place] [address] Apr, [facility] [address] [id number] [address] [place] [address], [place] [address] Apr, [facility] [address] [id number] [address] [place] [address], [place] [address] Apr, [facility] [address] [id number] [address] [place] [address], [place] [address] Mar, [facility] [address] [id number] [address] [place] [address], [place] [address] Mar, [facility] [address] [id number] [address] [place] [address], [place] [address] Mar, [facility] [address] [id number] [address] [place] [address], [place] [address] Mar, [facility] [address] [id number] [address] [place] [address], [place] [address] Mar, [facility] [address] [id number] [address] [place] [address] Mar, [facility] [address] [id number] [address] [place] [address], [place] [address] Mar, [facility] [address] [id number] [address] [place] [address], [place] [address] Mar, [facility] [address] [id number] [address] [place] [address], [place] [address] Mar, [facility] [address] [id number] [address] [place] [address], [place] [address] 25 Feb, 2012 [facility] [address] [id number] [address] [place] [address], [place] [address] 16 Feb, 2012 [facility] [address] [id number] [address] [place] [address], [place] [address] Feb, [facility] [address] [id number] [address] [place] [address], [place] [address] Jan, [facility] [address] [id number] [address] [place] [address], [place] [address] Jan, [facility] [address] [id number] [address] [place] [address], [place] [address] Jan, [facility] [address] [id number] [address] [place] [address], [place] [address] Jan, [facility] [address] [id number] [address] [place] [address], [place] [address] Jan, [facility] [address] [id number] [address] [place] [address], [place] [address] Jan, [facility] [address] [id number] [address] [place] [address], [place] [address] Jan, [facility] [address] [id number] [address] [place] [address], [place] [address] Jan, [facility] [address] [id number] [address] [place] [address], [place] [address] Jan, [facility] [address] [id number] [address] [place] [address], [place] [address] Jan, [facility] [address] [id number] [address] [place] [address], [place] [address] Dec, [facility] [address] [id number] [address] [place] [address], [place] [address] Dec, [facility] [address] [id number] [address] [place] [address], [place] [address] Dec, [facility] [address] [id number] [address] [place] [address], [place] [address] Dec, [facility] [address] [id number] [address] [place] [address], [place] [address] Nov, [facility] [address] [id number] [address] [place] [address], [place] [address] Nov, [facility] [address] [id number] [address] [place] [address], [place] [address] Nov, [facility] [address] [id number] [address] [place] [address], [place] [address] October, [facility] [address] [id number] [address] [place] [address], [place] [address] October, [facility] [address] [id number] [address] [place] [address], [place] [address] October, [facility] [address] [id number] [address] [place] [address], [place] [address] October, [facility] [address] [id number] [address] [place] [address], [place] [address] October, [facility] [address] [id number] [address] [place] [address], [place] [address] October, [facility] [address] [id number] [address] [place] [address], [place] [address] Aug, [facility] [address] [id number] [address] [place] [address], [place] [address] Mar, [facility] [address] [id number] [address] [place] [address], [place] [address] Nov, [facility] [address] [id number] [address] [place] [address], [place] [address] May, [facility] [address] [id number] [address] [place] [address], [place] [address] May, [facility] [address] [id number] [address] [address] Apr, [facility] [address] [facility] [id number] [address] [place] [address] Mar, [facility] [address] [facility] [id number] [address] [place] [address] Mar, IMMUNIZATIONS No Known Immunizations SOCIAL HISTORY Never Assessed REASON FOR VISIT f/u PLAN OF CARE Activity Details Follow Up 2 Weeks Reason: F/U VITAL SIGNS MEDICATIONS Unknown Medications RESULTS No Results PROCEDURES Procedure Date Ordered Result Body Site [facility] VISIT MENTAL HEALTH ESTAB PT October 25, 2017 Psychotherapy, patient &/family, 45 minutes, established patient October 25, 2017 INSTRUCTIONS MEDICATIONS ADMINISTERED No Known Medications [...]
--- OUTSIDE RECORDS SUMMARY | 2019-06-19 05:36 | XMS REPORT ---
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 Role Phone NAHOMY HANCOCK Unavailable PROBLEMS Type Condition ICD9-CM Code NVS44-TL Code Onset Dates Condition S tatus SNOMED Code Problem Hormone replacement therapy Z79.890 Ac tive 778237667 Problem Abnormal CT scan, head R93.0 Active 625159808 Problem Sensorineural hearing loss (SNHL) of both ears H90 .3 Active 671174295 Problem History of colon polyps Z86.010 Active 556616046 Problem Bruising, spontaneous R23.3 Active 793459199 Problem Generalized anxiety disorder F41.1 A ctive 68268688 Problem Arthralgia of hip, unspecified laterality M25.559 Active 79368640 Problem Hematuria, unspecified type R31.9 Ac tive 68864777 Problem Imbalance R26.89 Active 014921021 Problem Hammer toe of right foot M20.41 Activ e 205708191 Problem Plantar wart of right foot B07.0 Act mitchell [id number] Problem Sciatica of left side M54.32 Active 97657352 Problem Hyperlipidemia, unspecified hyperlipidemia type E7 8.5 Active 27537788 Problem Hypertension I10 Active 7006102 3 Problem Night sweats R61 Active 6228793 0 Problem Fibromyalgia M79.7 Active 7533638 7 Problem Major depressive disorder, recurrent episode, moderate F33.1 Active 125325820 Problem Acute left-sided low back pain with left-sided sciatica M54.42 Active 877385636 Problem Bladder spasm N32.89 Active 244445 006 Problem Gastritis without bleeding, unspecified chronicity, unspecified gastritis type K29.70 Active 779845382 Problem Bipolar 1 disorder, mixed F31.60 Acti ve 70220532 Problem Grief F43.20 Active 46380077 Problem Other chronic pain G89.29 Active 8 1590376 Problem Allergic rhinitis J30.9 Active 61 816135 Problem Hot flashes due to menopause N95.1 A ctive 626105046 Problem Ataxia R27.0 Active 13391205 Problem Hearing loss, unspecified laterality H91.90 Active 85224876 ALLERGIES Substance Reaction Event Type Date Status Morphine Sulfate Unknown Drug Allergy Sep, Active Iodine Unknown Drug Allergy Sep, Active Lyrica 75 Mg Capsule "felt weird" Non Drug Allergy Sep, Act mitchell ENCOUNTERS Encounter Location Date Diagnosis [facility] [address] [facility] [id number] [address] [place] [phone] Mar, [facility] [address] [facility] [id number] [address] [place] [phone] Jan, [facility] [address] [facility] [id number] [address] [place] [phone] Jan, [facility] [address] [facility] [id number] [address] [place] [phone] Jan, [facility] [address] [facility] [id number] [address] [place] [phone] Jan, [facility] [address] [place] [id number] [address] [place] [address] Jan, Bipolar 1 disorder, mixed F3 1.60 [facility] [address] [facility] [id number] [address] [place] [address] Dec, Bipolar 1 disorder, mixed F3 1.60 ; Generalized anxiety disorder F41.1 and Other custodial (current) drug therapy Z79.899 [facility] [address] [facility] [id number] [address] [place] [address] Dec, Other 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 (current) dr ug therapy Z79.899 [facility] [address] [facility] [id number] [address] [place] [address] Dec, Bipolar 1 disorder, mixed F3 1.60 [facility] [address] [facility] [id number] [address] [place] [address] Dec, Bipolar 1 disorder, mixed F3 1.60 [facility] [address] [place] [id number] [place] [address] Nov, Bipolar 1 disorder, mixed F3 1.60 [facility] [address] [address] Nov, Bipolar 1 disorder, mixed F3 1.60 [place] [address] [address] Nov, Bipolar 1 disorder, mixed F3 1.60 [facility] [address] [place] [id number] [place] [address] Nov, Allergic rhinitis J30.9 [place] [address] [address] Nov, Allergic rhinitis J30.9 [place] [address] [address] Nov, [facility] [address] [address] Nov, Bipolar 1 disorder, mixed F3 1.60 [place] [address] [address] Nov, Fibromyalgia M79.7 and Aller gic rhinitis J30.9 [facility] [address] [address] October, Bipolar 1 disorder, mixed F3 1.60 [facility] [address] [address] October, Acute nasopharyngitis J00 [facility] [address] [address] October, Bitten or stung by nonvenomo us insect and other nonvenomous arthropods, initial encounter W57.XXXA and Insect bite (nonvenomous) of abdominal wall, initial encounter S30.861A [place] [address] [place] [id number] [place] [address] October, Insect bite (nonvenomous) of abdominal wall, initial encounter S30.861A ; Bitten or stung by nonvenomous insect and other nonvenomous arthropods, initial encounter W57.XXXA ; Allergic rhinitis J30.9 and Low back pain M54.5 [facility] [address] [facility] [id number] [address] [place] [address] October, Bipolar 1 disorder, mixed F3 1.60 [facility] [address] [id number] [address] [place] [phone] October, [facility] [address] [facility] [id number] [address] [place] [address] October, [facility] [address] [facility] [id number] [address] [place] [address] October, Bipolar 1 disorder, mixed F3 1.60 [facility] [address] [facility] [id number] [address] [place] [address] Sep, Bipolar 1 disorder, mixed F3 1.60 [facility] [address] [id number] [address] [place] [address] Sep, Other chronic pain G89.29 [facility] [address] [facility] [id number] [address] [place] [phone] Sep, [facility] [address] [facility] [id number] [address] [place] [address] Sep, Bipolar 1 disorder, mixed F3 1.60 [facility] [address] [id number] [address] [place] [address] Sep, Allergic rhinitis J30.9 and Sciatica of left side M54.32 [facility] [address] [facility] [id number] [address] [place] [address] Sep, Bipolar 1 disorder, mixed F3 1.60 [facility] [address] [facility] [id number] [address] [place] [address] Sep, Bipolar 1 disorder, mixed F3 1.60 and Generalized anxiety disorder F41.1 [facility] [address] [id number] [address] [place] [address] Aug, [facility] [address] [facility] [id number] [address] [place] [address] Aug, Bipolar 1 disorder, mixed F3 1.60 [facility] [address] [facility] [id number] [address] [place] [address] Aug, Bipolar 1 disorder, mixed F3 1.60 [facility] [address] [id number] [address] [place] [address] Aug, [facility] [address] [facility] [id number] [address] [place] [phone] Aug, Generalized anxiety disorder F41.1 [facility] [address] [facility] [id number] [address] [place] [address] Aug, Bipolar 1 disorder, mixed F3 1.60 [facility] [address] [facility] [id number] [address] [place] [id number] Aug, Plantar wart of right foot B 07.0 [facility] [address] [facility] [id number] [address] [place] [address] Aug, Bipolar 1 disorder, mixed F3 1.60 [facility] [address] [facility] [id number] [address] [place] [address] Jul, Bipolar 1 disorder, mixed F3 1.60 [facility] [address] [facility] [id number] [address] [place] [address] Jul, [facility] [address] [facility] [id number] [address] [place] [address] Jul, Bipolar 1 disorder, mixed F3 1.60 [facility] [address] [facility] [id number] [address] [place] [phone] 09 Jul, 2017 Generalized anxiety disorder F41.1 [facility] [address] [facility] [id number] [address] [place] [id number] 07 Jul, 2017 Bipolar 1 disorder, mixed F3 1.60 [place] [id number] [place] [id number] [place] [id number] 07 Jul, 2017 Acute left-sided low back pa in with left-sided sciatica M54.42 [place] [address] [place] [id number] [place] [phone] 05 Jul, 2017 Coccydynia M53.3 [place] [address] [place] [id number] [place] [address] Jun, Bipolar 1 disorder, mixed F3 1.60 [facility] [address] [address] Jun, Acute nasopharyngitis J00 [place] [address] [address] Jun, Bipolar 1 disorder, mixed F3 1.60 [place] [address] [address] Jun, Fibromyalgia M79.7 [place] [address] [address] Jun, Bipolar 1 disorder, mixed F3 1.60 [place] [address] [address] Jun, Fibromyalgia M79.7 and Bipol ar 1 disorder, mixed F31.60 [place] [address] [place] [id number] [place] [phone] May, Bipolar 1 disorder, mixed F3 1.60 ; Generalized anxiety disorder F41.1 and Other custodial (current) drug therapy Z79.899 [place] [address] [place] [id number] [place] [address] May, Bipolar 1 disorder, mixed F3 1.60 [facility] [address] [place] [id number] [place] [phone] May, Cough R05 and Body aches R52 [facility] [address] [address] 10 May, 2017 Bladder spasm N32.89 and Acu te cystitis without hematuria N30.00 [facility] [address] [address] 07 May, 2017 Bipolar 1 disorder, mixed F3 1.60 [facility] [address] [address] 30 Apr, 2017 [place] [address] [address] Apr, Major depressive disorder, r ecurrent episode, moderate F33.1 and Encounter for immunization Z23 [place] [address] [address] 29 Apr, 2017 Bipolar 1 disorder, mixed F3 1.60 [place] [address] [address] 22 Apr, 2017 Bipolar 1 disorder, mixed F3 1.60 [place] [address] [address] 16 Apr, 2017 Bipolar 1 disorder, mixed F3 1.60 [place] [address] [address] 13 Apr, 2017 Yeast vaginitis B37.3 [place] [address] [address] 09 Apr, 2017 Bipolar 1 disorder, mixed F3 1.60 [facility] [address] [address] 07 Apr, 2017 Cellulitis L03.[address] for immunization Z23 [facility] [address] [address] 02 Apr, 2017 Bipolar 1 disorder, mixed F3 1.60 [place] [address] [address] Mar, Bipolar 1 disorder, mixed F3 1.60 [place] [address] [place] [id number] [place] [id number] Mar, Bipolar 1 disorder, mixed F3 1.60 [place] [address] [place] [id number] [place], [place] [address] Mar, Imbalance R26.89 [address] En[address] er for immunization Z23 [place] [address] [place] [id number] [place] [address] Mar, Generalized anxiety disorder F41.1 [place] [address] Mar, Bipolar 1 disorder, mixed F3 1.60 [place] [address] [place] [id number] [place] [address] Mar, Generalized anxiety disorder F41.1 [place] [address] [place] [id number] [place] [address] Mar, Bipolar 1 disorder, mixed F3 1.60 [place] [address] [place] [id number] [place] [address] Mar, Bipolar 1 disorder, mixed F3 1.60 [place] [address] [place] [id number] [place] [id number] Feb, Bipolar 1 disorder, mixed F3 1.60 [place] [address] [place] [id number] [place] [address] Feb, Bipolar 1 disorder, mixed F3 1.60 and Generalized anxiety disorder F41.1 [place] [address] [place] [id number] [place] [phone] Feb, Gastritis without bleeding, unspecified chronicity, unspecified gastritis type K29.70 ; Hammer toe of right foot M20.41 and Other viral warts B07.8 [place] [address] [place] [id number] [place] [address] Feb, Bipolar 1 disorder, mixed F3 1.60 [facility] [address] [facility] [id number] [address] [place] [id number] 13 Feb, 2017 Bipolar 1 disorder, mixed F3 1.60 [facility] [address] [facility] [id number] [address] [place] [phone] 05 Feb, 2017 Bipolar 1 disorder, mixed F3 1.60 [facility] [address] [facility] [id number] [address] [place] [address] Jan, Encounter for screening mamm ogram for breast cancer Z12.31 ; Other viral warts B07.8 and Allergic rhinitis J30.9 [facility] [address] [facility] [id number] [address] [place] [address] Jan, Bipolar 1 disorder, mixed F3 1.60 [facility] [address] [facility] [id number] [address] [place] [address] Jan, Bipolar 1 disorder, mixed F3 1.60 [facility] [address] [facility] [id number] [address] [place] [id number] 14 Jan, 2017 [facility] [address] [facility] [id number] [address] [place] [address] Jan, Bipolar 1 disorder, mixed F3 1.60 [facility] [address] [facility] [id number] [address] [place] [phone] 04 Jan, 2017 Bipolar 1 disorder, mixed F3 1.60 [facility] [address] [facility] [id number] [address] [place] [address] Jan, Allergic rhinitis J30.9 ; He maturia R31.9 and Colon cancer screening Z12.11 [facility] [address] [facility] [id number] [address] [place] [id number] Dec, Bipolar 1 disorder, mixed F3 1.60 [facility] [address] [facility] [id number] [address] [place] [address] 18 Dec, 2016 Bipolar 1 disorder, mixed F3 1.60 ; Generalized anxiety disorder F41.1 and 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 [facility] [address] [facility] [id number] [address] [place] [address] Dec, Bipolar 1 disorder, mixed F3 1.60 [facility] [address] [facility] [id number] [address] [place] [address] Dec, Bipolar 1 disorder, mixed F3 1.60 [facility] [address] [place] [id number] [place] [id number] Dec, Bipolar 1 disorder, mixed F3 1.60 [facility] [address] [facility] [id number] [address] [place] [address] Dec, Low back pain M54.5 and Recu rrent urinary tract infection N39.0 [place] [address] [place] [id number] [place] [address] Nov, Bipolar 1 disorder, mixed F3 1.60 [place] [address] [place] [id number] [place] [address] Nov, Bipolar 1 disorder, mixed F3 1.60 [place] [id number] [place] [id number] [place] [address] Nov, Bipolar 1 disorder, mixed F3 1.60 [facility] [address] [place] [id number] [place] [address] Nov, Bipolar 1 disorder, mixed F3 1.60 [place] [address] [place] [id number] [place] [phone] Nov, [facility] [address] [place] [id number] [place] [address] Nov, Anesthesia of skin R20.0 ; F requent UTI N39.0 ; Tobacco abuse Z72.0 and Colon cancer screening Z12.11 [facility] [address] [facility] [id number] [address] [place] [address] Nov, Bipolar 1 disorder, mixed F3 1.60 [place] [address] [place] [id number] [place] [id number] October, Bipolar 1 disorder, mixed F3 1.60 [facility] [address] [facility] [id number] [address] [place] [address] October, Bipolar 1 disorder, mixed F3 1.60 [facility] [address] [facility] [id number] [address] [place] [address] October, Bipolar 1 disorder, mixed F3 1.60 [facility] [address] [place] [id number] [place] [address] October, Bipolar 1 disorder, mixed F3 1.60 [facility] [address] [place] [id number] [place] [id number] October, Bipolar 1 disorder, mixed F3 1.60 [place] [address] [place] [id number] [place] [address] October, Cervicalgia M54.2 and Bipola r 1 disorder, mixed F31.60 [place] [address] [place] [id number] [place] [address] October, Hypertension I10 ; Hyperlipi demia, unspecified hyperlipidemia type E78.5 and Family history of thyroid disease Z83.49 [place] [address] [place] [id number] [place] [address] October, [facility] [address] [place] [id number] [place] [address] October, Hypertension I10 ; Hyperlipi demia, unspecified hyperlipidemia type E78.5 and Family history of thyroid problem Z83.49 [place] [id number] [facility] [id number] [address] [place] [phone] October, Bipolar 1 disorder, mixed F3 1.60 [place] [address] [place] [id number] [place], [place] [address] Sep, Bipolar 1 disorder, mixed F3 1.60 [facility] [address] [place] [id number] [place] [address] Sep, Bipolar 1 disorder, mixed F3 1.60 [facility] [address] [place] [id number] [place] [address] Sep, Bipolar 1 disorder, mixed F3 1.60 [facility] [address] [place] [id number] [place], [place] [address] Sep, History of colon polyps Z86. 010 and Hematochezia K92.1 [facility] [address] [place] [id number] [place] [address] Sep, Major depressive disorder, r ecurrent episode, moderate F33.1 [facility] [address] [place] [id number] [place] [address] Sep, Bipolar 1 disorder, mixed F3 1.60 [facility] [address] [place] [id number] [place] [address] Aug, Hot flashes due to menopause N95.1 [facility] [address] [place] [id number] [place] [address] Aug, Bipolar 1 disorder, mixed F3 1.60 [facility] [address] [place] [id number] [place] [id number] Aug, [facility] [address] [place] [id number] [place] [address] Aug, Bipolar 1 disorder, mixed F3 1.60 [facility] [address] [place] [id number] [place] [address] Aug, Bipolar 1 disorder, mixed F3 1.60 [facility] [address] [place] [id number] [place] [address] Aug, Hot flashes due to menopause N95.1 ; Cervicalgia M54.2 and Ataxia R27.0 [facility] [address] [facility] [id number] [address] [place] [address] Jul, Bipolar 1 disorder, mixed F3 1.60 [facility] [address] [place] [id number] [place] [address] Jul, Bipolar 1 disorder, mixed F3 1.60 [place] [address] Jul, Bipolar 1 disorder, mixed F3 1.60 [place] [address] Jul, Bipolar 1 disorder, mixed F3 1.60 [place] [address] Jul, Bipolar 1 disorder, mixed F3 1.60 [place] [address] Jul, Cervicalgia M54.2 ; Tremor R 25.1 ; Hearing abnormally acute, unspecified laterality H93.239 ; Alopecia L65.9 ; Encounter for immunization Z23 and Family history of thyroid disease Z83.49 [place] [address] [place] [address] Jul, Bipolar 1 disorder, mixed F3 1.60 [place] [address] [address] Jun, [place] [address] [place] [address] Jun, Hearing disorder, unspecifie d laterality H93.299 [place] [address] [place] [address] Jun, Bipolar 1 disorder, mixed F3 1.60 [place] [address] [address] Jun, Bipolar 1 disorder, mixed F3 1.60 [place] [address] [place] [address] Jun, Allergic rhinitis J30.9 [place] [address] [address] Jun, Bipolar 1 disorder, mixed F3 1.60 [facility] [address] [id number] [address] [place] [address] Jun, Bipolar 1 disorder, mixed F3 1.60 [facility] [address] [id number] [address] [place] [address] Jun, Allergic rhinitis J30.9 [facility] [address] [id number] [address] [place] [address] Jun, Allergic rhinitis J30.9 [facility] [address] [id number] [address] [place] [address], [place] [address] Jun, Bipolar 1 disorder, mixed F3 1.60 [facility] [address] [id number] [address] [place] [address], [place] [id number] May, Bipolar 1 disorder, mixed F3 1.60 [facility] [address] [id number] [address] [place] [id number] May, Bipolar 1 disorder, mixed F3 1.60 [facility] [address] [id number] [address] [place] [id number] May, [facility] [address] [id number] [address] [place] [id number] May, Bipolar 1 disorder, mixed F3 1.60 [facility] [address] [facility] [id number] [address] [place] [id number] May, Bipolar 1 disorder, mixed F3 1.60 [facility] [address] [id number] [address] [place] [phone] May, [facility] [address] [id number] [address] [place] [id number] May, [facility] [address] [id number] [address] [place] [phone] May, [facility] [address] [facility] [id number] [address] [place] [id number] May, Abdominal pain, unspecified location R10.9 [facility] [address] [id number] May, [facility] [address] [id number] Apr, Hematuria R31.9 ; Ataxia R27 .0 and Hearing loss, unspecified laterality H91.90 [facility] [address] [id number] Apr, Bipolar 1 disorder, mixed F3 1.60 [facility] [address] [id number] Apr, Acute effusion of both middl e ears H65.193 [place] [address] [id number] Apr, Hematuria R31.9 and Pyelonep hritis N12 [facility] [place] [address] [address] Apr, [place] [address] [address] Mar, Bipolar 1 disorder, mixed F3 1.60 [place] [address] [address] Mar, [place] [address] [address] Mar, Bipolar 1 disorder, mixed F3 1.60 [place] [address] [address] Mar, Bipolar 1 disorder, mixed F3 1.60 [place] [address] [address] Mar, Encounter for immunization Z 23 and Gastritis without bleeding, unspecified chronicity, unspecified gastritis type K29.70 [facility] [address] [place] [id number] [address] [place] [id number] 05 Mar, 2016 Bipolar 1 disorder, mixed F3 1.60 and Grief F43.20 [place] [address] [place] [id number] [address] [place] [id number] 05 Mar, 2016 Gastritis without bleeding, unspecified chronicity, unspecified gastritis type K29.70 [facility] [address] [place] [id number] [address] [place] [address] Mar, Bipolar 1 disorder, mixed F3 1.60 [place] [address] [place] [id number] [address] [place] [id number] Mar, Gastritis without bleeding, unspecified chronicity, unspecified gastritis type K29.70 [place] [address] [place] [id number] [address] [place] [id number] Mar, [place] [address] [place] [id number] [place] [address] Feb, Bipolar 1 disorder, mixed F3 1.60 [place] [address] [place] [address] Feb, Bipolar 1 disorder, mixed F3 1.60 and Grief F43.20 [place] [address] [place] [id number] [place] [address] Feb, Gastritis without bleeding, unspecified chronicity, unspecified gastritis type K29.70 [place] [address] [place] [id number] [address] [place] [id number] 14 Feb, 2016 Bipolar 1 disorder, mixed F3 1.60 [facility] [address] [place] [id number] [address] [place], [place] [id number] Feb, Gastroesophageal reflux dise ase, esophagitis presence not specified K21.9 [place] [address] [place] [id number] [address] [place] [address] Jan, Bipolar 1 disorder, mixed F3 1.60 [place] [address] [place] [id number] [address] [place] [address] Jan, Bipolar 1 disorder, mixed F3 1.60 and Unsteady gait R26.81 [place] [address] [place] [id number] [place] [address] Jan, Bipolar 1 disorder, mixed F3 1.60 [place] [address] [address] Jan, Bipolar 1 disorder, mixed F3 1.60 and Other custodial (current) drug therapy Z79.899 [place] [address] [address] Jan, Bipolar 1 disorder, mixed F3 1.60 [place] [address] [place] [id number] [place] [address] Jan, Bipolar 1 disorder, mixed F3 1.60 [place] [address] [address] Jan, Bipolar 1 disorder, mixed F3 1.60 ; Grief F43.20 and 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 [place] [address] [address] Jan, Bipolar 1 disorder, mixed F3 1.60 [place] [address] [address] Dec, [place] [address] [address] Dec, Bipolar 1 disorder, mixed F3 1.60 ; Vitamin D deficiency, unspecified E55.9 ; H/O allergic rhinitis Z87.09 ; Other chronic pain G89.29 and Dorsalgia, unspecified M54.9 [place] [address] [place] [id number] [address] [place] [address] Dec, [place] [address] [address] Dec, Bipolar 1 disorder, mixed F3 1.60 [place] [address] [address] Dec, Major depressive disorder, r ecurrent episode, moderate F33.1 [place] [address] [facility] [id number] [address] [place] [address] Dec, Major depressive disorder, r ecurrent episode, moderate F33.1 [facility] [address] [facility] [id number] [address] [place] [id number] Nov, [facility] [address] [facility] [id number] [address] [place] [address] Nov, Bipolar 1 disorder, mixed F3 1.60 [place] [address] [facility] [id number] [address] [place] [address] Nov, Major depressive disorder, r ecurrent episode, moderate F33.1 [place] [address] [facility] [id number] [address] [place] [address] Nov, Cervicalgia M54.2 ; Arthralg ia of hip, unspecified laterality M25.559 ; Allergic rhinitis J30.9 and Hormone replacement therapy Z79.890 [facility] [address] [facility] [id number] [address] [place] [address] Nov, Other seasonal allergic rhin itis J30.2 [place] [address] [facility] [id number] [address] [place] [address] October, Major depressive disorder, r ecurrent episode, moderate F33.1 [place] [address] [facility] [id number] [address] [place] [address] October, Major depressive disorder, r ecurrent episode, moderate F33.1 and Arthralgia of hip, unspecified laterality M25.559 [place] [address] [facility] [id number] [address] [place] [address] October, Grief F43.20 ; Hypertension I10 ; Hyperlipidemia, unspecified hyperlipidemia type E78.5 ; Other chronic pain G89.29 and Allergic rhinitis, unspecified allergic rhinitis type J30.9 [facility] [address] [facility] [id number] [address] [place] [address] October, Major depressive disorder, r ecurrent episode, moderate F33.1 [facility] [address] [facility] [id number] [address] [place] [address] Sep, Major depressive disorder, r ecurrent episode, moderate F33.1 [facility] [address] [facility] [id number] [address] [place] [address] Sep, [facility] [address] [facility] [id number] [address] [place] [address] Sep, Major depressive disorder, r ecurrent episode, moderate F33.1 [place] [address] [facility] [id number] [address] [place] [address] Sep, Grief F43.20 [place] [address] [facility] [id number] [address] [place] [address] Aug, Major depressive disorder, r ecurrent episode, moderate F33.1 [place] [address] [place] [id number] [address] [place] [address] Aug, Bipolar 1 disorder, mixed F3 1.60 [place] [address] [facility] [id number] [address] [place] [address] Aug, Allergic rhinitis J30.9 ; Ce rvicalgia M54.2 and Low back pain M54.5 [place] [address] [facility] [id number] [address] [place] [address] Aug, Major depressive disorder, r ecurrent episode, moderate F33.1 [facility] [address] [facility] [id number] [address] [place] [address] Aug, Sinusitis J32.9 and Tobacco 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 [facility] [address] [facility] [id number] [address] [place] [address] Aug, [facility] [address] [facility] [id number] [address] [place] [address] Aug, Depressive disorder, not els ewhere classified F32.9 ; Hormone replacement therapy Z79.[address] scan, head R93.0 [place] [id number] [id number] [address] [place] [phone] 08 Aug, 2015 Major depressive disorder, r ecurrent episode, moderate F33.1 [facility] [address] [facility] [id number] [address] [place] [address] 17 Jul, 2015 Major depressive disorder, r ecurrent episode, moderate F33.1 [facility] [address] [facility] [id number] [address] [place] [address] Jul, Abdominal pain R10.9 and Hyp ertension I10 [facility] [address] [facility] [id number] [address] [place] [address] Jul, [facility] [address] [place] [id number] [address] [place] [address] Jul, Major depressive disorder, r ecurrent episode, moderate F33.1 [facility] [address] [place] [id number] [address] [place] [address] Jul, [facility] [address] [facility] [id number] [address] [place] [address] Jul, [facility] [address] [place] [id number] [address] [place] [address] Jun, [facility] [address] [place] [id number] [address] [place] [address] Jun, Depressive disorder, not els ewhere classified F32.9 [facility] [address] [facility] [id number] [address] [place] [id number] Jun, [facility] [address] [facility] [id number] [address] [place] [address] Jun, [facility] [address] [place] [id number] [address] [place] [id number] Jun, Arthralgia of hip, unspecifi ed laterality M25.559 ; Bruising, spontaneous R23.3 and Night sweats R61 [facility] [address] [id number] [address] [place] [phone] Jun, [facility] [address] [id number] [address] [place] [id number] Jun, [facility] [address] [facility] [id number] [address] [place] [address] May, [facility] [address] [facility] [id number] [address] [place] [address] May, Myalgia M79.1 and Screening, lipid Z13.220 [facility] [address] [facility] [id number] [address] [place] [address] Apr, Status post cervical spinal fusion Z98.1 ; Fibromyalgia M79.7 and Unsteady gait R26.81 [facility] [address] [facility] [id number] [address] [place] [address] Nov, [facility] [address] [facility] [id number] [address] [place] [address] Nov, [facility] [address] [id number] [address] [place] [address] October, [facility] [address] [facility] [id number] [address] [place] [id number] October, [facility] [address] [facility] [id number] [address] [place] [phone] October, [facility] [address] [facility] [id number] [address] [place] [phone] October, [facility] [address] [id number] [address] [place] [phone] October, [facility] [address] [facility] [id number] [address] [place] [id number] October, Dysuria 788.1 ; Nausea 787.0 2 and Urinary tract infection 599.0 [facility] [address] [facility] [id number] [address] [place] [address] Sep, [facility] [address] [id number] [facility] [place] [address] 13 Sep, 2014 [facility] [address] [id number] [address] [place] [address], [place] [address] 25 Aug, 2014 [facility] [address] [id number] [address] [place] [address], [place] [address] 25 Aug, 2014 [facility] [address] [id number] [address] [place] [address], [place] [address] 24 Aug, 2014 [facility] [address] [id number] [address] [place] [address], [place] [address] 24 Aug, 2014 [facility] [address] [id number] [address] [place] [address], [place] [address] 23 Aug, 2014 [facility] [address] [id number] [address] [place] [address], [place] [address] 19 Aug, 2014 [facility] [address] [id number] [address] [place] [address], [place] [address] 19 Aug, 2014 [facility] [address] [id number] [address] [place] [address], [place] [address] 19 Aug, 2014 [facility] [address] [id number] [address] [place] [address], [place] [address] 19 Aug, 2014 [facility] [address] [id number] [address] [place] [address], [place] [address] 18 Aug, 2014 [facility] [address] [id number] [address] [place] [address], [place] [address] 18 Aug, 2014 [facility] [address] [id number] [address] [place] [address], [place] [address] 13 Aug, 2014 [facility] [address] [id number] [address] [place] [address], [place] [address] 13 Aug, 2014 [facility] [address] [id number] [address] [place] [address], [place] [address] 11 Aug, 2014 [facility] [address] [id number] [address] [place] [address], [place] [address] Aug, [facility] [address] [id number] [address] [place] [address], [place] [address] Aug, [facility] [address] [id number] [address] [place] [address], [place] [address] Aug, [facility] [address] [id number] [address] [place] [address], [place] [address] Aug, 2014 [facility] [address] [id number] [address] [place] [address], [place] [address] Aug, 2014 [facility] [address] [id number] [address] [place] [address], [place] [address] Aug, [facility] [address] [id number] [address] [place] [address], [place] [address] Aug, [facility] [address] [id number] [address] [place] [address], [place] [address] Aug, [facility] [address] [id number] [address] [place] [address], [place] [address] Jul, [facility] [address] [id number] [address] [place] [address], [place] [address] Jul, [facility] [address] [id number] [address] [place] [address], [place] [address] Jul, [facility] [address] [id number] [address] [place] [address], [place] [address] Jul, 2014 [facility] [address] [id number] [address] [place] [address], [place] [address] Jul, 2014 [facility] [address] [id number] [address] [place] [address], [place] [address] Jul, [facility] [address] [id number] [address] [place] [address], [place] [address] Jul, [facility] [address] [id number] [address] [place] [address], [place] [address] Jul, 2014 [facility] [address] [id number] [address] [place] [address], [place] [address] Jul, 2014 [facility] [address] [id number] [address] [place] [address], [place] [address] Jul, 2014 [facility] [address] [id number] [address] [place] [address], [place] [address] Jul, 2014 [facility] [address] [id number] [address] [place] [address], [place] [address] Jul, 2014 [facility] [address] [id number] [address] [place] [address], [place] [address] Jul, 2014 [facility] [address] [id number] [address] [place] [address], [place] [address] Jul, [facility] [address] [id number] [address] [place] [address], [place] [address] Jun, [facility] [address] [id number] [address] [place] [address], [place] [address] Jun, [facility] [address] [id number] [address] [place] [address], [place] [address] Jun, [facility] [address] [id number] [address] [place] [address], [place] [address] Jun, [facility] [address] [id number] [address] [place] [address], [place] [address] Jun, [facility] [address] [id number] [address] [place] [address], [place] [address] Jun, [facility] [address] [id number] [address] [place] [address], [place] [address] May, [facility] [address] [id number] [address] [place] [address], [place] [address] May, [facility] [address] [id number] [address] [place] [address], [place] [address] May, [facility] [address] [id number] [address] [address] May, [facility] [address] [id number] [address] [place] [address], [place] [address] May, [facility] [address] [id number] [address] [place] [address], [place] [address] May, [facility] [address] [id number] [address] [place] [address], [place] [address] Apr, [facility] [address] [id number] [address] [place] [address] Apr, [facility] [address] [id number] [address] [place] [address], [place] [address] Apr, [facility] [address] [id number] [address] [place] [address], [place] [address] Apr, [facility] [address] [id number] [address] [place] [address], [place] [address] Apr, [facility] [address] [id number] [address] [place] [address], [place] [address] Apr, [facility] [address] [id number] [address] [place] [address], [place] [address] Mar, [facility] [address] [id number] [address] [place] [address], [place] [address] Mar, [facility] [address] [id number] [address] [place] [address] Mar, [facility] [address] [id number] [address] [place] [address] Mar, [facility] [address] [id number] [address] [place] [address], [place] [address] Mar, [facility] [address] [id number] [address] [place] [id number] Mar, [facility] [address] [id number] [address] [place] [address] Mar, [facility] [address] [id number] [address] [place] [address], [place] [address] Mar, [facility] [address] [id number] [address] [place] [address], [place] [address] Mar, [facility] [address] [id number] [address] [place] [address], [place] [address] Mar, [facility] [address] [id number] [address] [place] [address], [place] [address] Mar, [facility] [address] [id number] [address] [place] [address], [place] [address] Mar, [facility] [address] [id number] [address] [place] [address], [place] [address] 30 Feb, 2014 [facility] [address] [id number] [address] [place] [address], [place] [address] 29 Feb, 2014 [facility] [address] [id number] [address] [place] [address], [place] [address] 29 Feb, 2014 [facility] [address] [id number] [address] [place] [address], [place] [address] 23 Feb, 2014 [facility] [address] [id number] [address] [place] [address], [place] [address] Feb, [facility] [address] [id number] [address] [place] [address], [place] [address] 08 Feb, 2014 [facility] [address] [id number] [address] [place] [address], [place] [address] Feb, [facility] [address] [id number] [address] [place] [address], [place] [address] Jan, [facility] [address] [id number] [address] [place] [address], [place] [address] Jan, [facility] [address] [id number] [address] [place] [address], [place] [address] Jan, [facility] [address] [id number] [address] [place] [address], [place] [address] Dec, [facility] [address] [id number] [address] [place] [address], [place] [address] Dec, [facility] [address] [id number] [address] [place] [address], [place] [address] Dec, [facility] [address] [id number] [address] [place] [address], [place] [address] Dec, [facility] [address] [id number] [address] [place] [address], [place] [address] Sep, [facility] [address] [id number] [address] [place] [address], [place] [address] Sep, [facility] [address] [id number] [address] [place] [address], [place] [address] Sep, [facility] [address] [id number] [address] [place] [address], [place] [address] Sep, [facility] [address] [id number] [address] [place] [address], [place] [address] Sep, [facility] [address] [id number] [address] [place] [address], [place] [address] Sep, [facility] [address] [id number] [address] [place] [address], [place] [address] Sep, [facility] [address] [id number] [address] [place] [address], [place] [address] Sep, [facility] [address] [id number] [address] [place] [address], [place] [address] Aug, [facility] [address] [id number] [address] [place] [address], [place] [address] Aug, [facility] [address] [id number] [address] [place] [address], [place] [address] May, [facility] [address] [id number] [address] [place] [address], [place] [address] May, [facility] [address] [id number] [address] [place] [address], [place] [address] Apr, [facility] [address] [id number] [address] [place] [address], [place] [address] Apr, [facility] [address] [id number] [address] [place] [address], [place] [address] Apr, [facility] [address] [id number] [address] [place] [address], [place] [address] Apr, [facility] [address] [id number] [address] [place] [address], [place] [address] Apr, [facility] [address] [id number] [address] [place] [address], [place] [address] Apr, [facility] [address] [id number] [address] [place] [address], [place] [address] May, [facility] [address] [id number] [address] [place] [address], [place] [address] May, [facility] [address] [id number] [address] [place] [address], [place] [address] May, [facility] [address] [id number] [address] [place] [address], [place] [address] 15 May, 2012 [facility] [address] [id number] [address] [place] [address], [place] [address] May, [facility] [address] [id number] [address] [place] [address], [place] [address] May, [facility] [address] [id number] [address] [place] [address], [place] [address] Apr, [facility] [address] [id number] [address] [place] [address], [place] [address] Apr, [facility] [address] [id number] [address] [place] [address], [place] [address] Apr, [facility] [address] [id number] [address] [place] [address], [place] [address] Apr, [facility] [address] [id number] [address] [place] [address], [place] [address] 08 Apr, 2012 [facility] [address] [id number] [address] [place] [address], [place] [address] 08 Apr, 2012 [facility] [address] [id number] [address] [place] [address], [place] [address] 07 Apr, 2012 [facility] [address] [id number] [address] [place] [address], [place] [address] 07 Apr, 2012 [facility] [address] [id number] [address] [place] [address], [place] [address] Apr, [facility] [address] [id number] [address] [place] [address], [place] [address] Apr, [facility] [address] [id number] [address] [place] [address], [place] [address] Mar, [facility] [address] [id number] [address] [place] [address], [place] [address] Mar, [facility] [address] [id number] [address] [place] [address], [place] [address] Mar, [facility] [address] [id number] [address] [place] [address], [place] [address] Mar, [facility] [address] [id number] [address] [place] [address], [place] [address] Mar, [facility] [address] [id number] [address] [place] [address], [place] [address] Mar, [facility] [address] [id number] [address] [place] [address], [place] [address] Mar, [facility] [address] [id number] [address] [place] [address], [place] [address] Mar, [facility] [address] [id number] [address] [place] [address], [place] [address] Mar, [facility] [address] [id number] [address] [place] [address], [place] [address] 25 Feb, 2012 [facility] [address] [id number] [facility] [place] [address] 16 Feb, 2012 [facility] [address] [id number] [address] [place] [address], [place] [address] Feb, [facility] [address] [id number] [address] [place] [address], [place] [address] Jan, [facility] [address] [id number] [address] [place] [address], [place] [address] Jan, [facility] [address] [id number] [address] [place] [address], [place] [address] Jan, [facility] [address] [id number] [address] [place] [address], [place] [address] Jan, [facility] [address] [id number] [address] [place] [address], [place] [address] Jan, [facility] [address] [id number] [address] [place] [address], [place] [address] Jan, [facility] [address] [id number] [address] [place] [address], [place] [address] Jan, [facility] [address] [id number] [address] [place] [address], [place] [address] Jan, [facility] [address] [id number] [address] [place] [address], [place] [address] Jan, [facility] [address] [id number] [address] [place] [address], [place] [address] Jan, [facility] [address] [id number] [address] [place] [address], [place] [address] Dec, [facility] [address] [id number] [address] [place] [address], [place] [address] Dec, [facility] [address] [id number] [address] [place] [address], [place] [address] Dec, [facility] [address] [id number] [address] [place] [address], [place] [address] 17 Dec, 2011 [facility] [address] [id number] [address] [place] [address], [place] [address] Nov, [facility] [address] [id number] [address] [place] [address], [place] [address] 08 Nov, 2011 [facility] [address] [id number] [address] [place] [address], [place] [address] Nov, [facility] [address] [id number] [address] [place] [address], [place] [address] October, [facility] [address] [id number] [address] [place] [address], [place] [address] October, [facility] [address] [id number] [address] [place] [address], [place] [address] October, [facility] [address] [id number] [address] [place] [address], [place] [address] October, [facility] [address] [id number] [address] [place] [address], [place] [address] October, [facility] [address] [id number] [address] [place] [address], [place] [address] October, [facility] [address] [id number] [address] [place] [address], [place] [address] Aug, [facility] [address] [id number] [address] [place] [address], [place] [address] Mar, [facility] [address] [id number] [address] [place] [address], [place] [address] Nov, [facility] [address] [id number] [address] [place] [address], [place] [address] May, [facility] [address] [id number] [address] [place] [address], [place] [address] May, [facility] [address] [id number] [address] [place] [address], [place] [address] Apr, [facility] [address] [facility] [id number] [address] [place] [id number] Mar, [facility] [address] [facility] [id number] [address] [place] [address] Mar, IMMUNIZATIONS No Known Immunizations SOCIAL HISTORY Never Assessed REASON FOR VISIT Fibromyalgia wb - MA PLAN OF CARE Activity Details Follow Up 4 Weeks Reason:back pain VITAL SIGNS Height 64 in 2017-10-01 Weight 164 lbs 2017-10-01 Temperature 98.2 degrees Fahrenheit 2017-10-01 Heart Rate 102 bpm 2017-10-01 Respiratory Rate 20 2017-10-01 BMI 28.15 kg/m2 2017-10-01 Blood pressure systolic 146 mmHg 2017-10-01 Blood pressure diastolic 82 mmHg 2017-10-01 MEDICATIONS Medication Instructions Dosage Frequency Start Date End Date Duration S tatus Vitamin D3 2000 UNIT Orally Once a day as directed 24h Dec, Active Tramadol HCl 50 MG Orally every 6 hrs 1 tablet as needed for severe pain 6h 11 Jun, 2017 Not-Taking Voltaren 1 % Transdermal 4 times a day on neck Active Beclomethasone Dipropionate 80 MCG/ACT Nasally Once a day 2 puffs in each nostril 24h 16 Sep, 2017 30 day(s) Active Lidocaine-Prilocaine 2.5-2.5 % Active Magnesium 500 MG Orally Once a day 1 tablet with a meal 24h Dec, Active Probiotic Acidophilus Ac tive Flexeril 10 mg by oral route 2 times a day 1 tablet 12h 18 Aug, 2014 30 Active Melatonin 5 mg Orally Once a day 2 tablets 24h May, Active Cetirizine HCl 10 mg Orally Once a day 1 tablet 24h Jan, 7 Jan, 90 days Active Orally Once a day 1 capsule 24h Act mitchell Vagifem 10 MCG Vaginal Two times a Week 1 tablet Active O18-Xzsyon 1 MG Active Flonase 50 MCG/ACT Nasally twice a day 1 spray in each nostril 12h Jan, Active Myrbetriq 50 MG Orally Once a day 1 tablet 24h Active Depakote ER 500 mg Orally at bedtime 2 tabs 30 days Active Mucinex 600 MG Orally every 12 hrs 1 tablet as needed 12h Active Estradiol 2 MG Orally Once a day 1 tablet 24h Active Fetzima 120 mg Orally Once a day TAKE 1 CAPSULE BY MOUTH DAILY 24h 30 days Active Ibuprofen 600 MG Orally 4 times a day 1 tablet with food or milk as needed 6h Sep, Jan, 30 days Active Gabapentin 100 mg Orally 3 times a day 1 capsule 8h 07 Jul, 2017 Active HydrOXYzine HCl 10 mg Orally BID prn anxiety, MAX 45 tabs monthly 1 t ablet 30 days Active Pantoprazole Sodium 20 MG TAKE 1 TABLET BY MOUTH ONCE DAILY 90 Active Nitrofurantoin Monohyd Macro 100 mg Orally Once a day 1 capsule with food 24h Active RESULTS No Results PROCEDURES Procedure Date Ordered Result Body Site [facility] VISIT ESTABLISHED PATIENT October 01, 2017 INSTRUCTIONS MEDICATIONS ADMINISTERED No Known [...]
--- OUTSIDE RECORDS SUMMARY | 2019-06-19 05:36 | XMS REPORT ---
Author Author Sydnie HANCOCK [facility] Address [address] [place] [address] Care Team Providers Care Forgesmith Name Role Phone NAHOMY HANCOCK Unavailable PROBLEMS Type Condition ICD9-CM Code [id number] Code Onset Dates Condition S tatus SNOMED Code Problem Hormone replacement therapy Z79.890 Ac tive 325890246 Problem Abnormal CT scan, head R93.0 Active 983938960 Problem Sensorineural hearing loss (SNHL) of both ears H90 .3 Active 077945377 Problem History of colon polyps Z86.010 Active 309686438 Problem Bruising, spontaneous R23.3 Active 607064936 Problem Generalized anxiety disorder F41.1 A ctive 45158602 Problem Arthralgia of hip, unspecified laterality M25.559 Active 63628685 Problem Hematuria, unspecified type R31.9 Ac tive 01613575 Problem Imbalance R26.89 Active 910433645 Problem Hammer toe of right foot M20.41 Activ e 904870044 Problem Plantar wart of right foot B07.0 Act mitchell [id number] Problem Sciatica of left side M54.32 Active 06258223 Problem Hyperlipidemia, unspecified hyperlipidemia type E7 8.5 Active 44300728 Problem Hypertension I10 Active 1470287 3 Problem Night sweats R61 Active 1928660 0 Problem Fibromyalgia M79.7 Active 1771197 7 Problem Major depressive disorder, recurrent episode, moderate F33.1 Active 249049350 Problem Acute left-sided low back pain with left-sided sciatica M54.42 Active 779820307 Problem Bladder spasm N32.89 Active 074485 006 Problem Gastritis without bleeding, unspecified chronicity, unspecified gastritis type K29.70 Active 370630640 Problem Bipolar 1 disorder, mixed F31.60 Acti ve 45254689 Problem Grief F43.20 Active 57931529 Problem Other chronic pain G89.29 Active 8 9454261 Problem Allergic rhinitis J30.9 Active 61 782200 Problem Hot flashes due to menopause N95.1 A ctive 940917332 Problem Ataxia R27.0 Active 15170782 Problem Hearing loss, unspecified laterality H91.90 Active 76837626 ALLERGIES No Information ENCOUNTERS Encounter Location Date Diagnosis [facility] [address] [facility] [id number] [address] [place] [address] Mar, [facility] [address] [facility] [id number] [address] [place] [address] Feb, [facility] [address] [facility] [id number] [address] [place] [address] Feb, [facility] [address] [facility] [id number] [address] [place] [address] Jan, [facility] [address] [facility] [id number] [address] [place] [address] Jan, [facility] [address] [facility] [id number] [address] [place] [address] Jan, [facility] [address] [facility] [id number] [address] [place] [address] Jan, Bipolar 1 disorder, mixed F3 1.60 [facility] [address] [facility] [id number] [address] [place] [address] Jan, Bipolar 1 disorder, mixed F3 1.60 [facility] [address] [facility] [id number] [address] [place] [address] Dec, Bipolar 1 disorder, mixed F3 1.60 ; Generalized anxiety disorder F41.1 and 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 [facility] [address] [facility] [id number] [address] [place] [address] Dec, Other chcf (current) dr ug therapy Z79.899 [facility] [address] [facility] [id number] [address] [place] [address] Dec, Bipolar 1 disorder, mixed F3 1.60 [facility] [address] [facility] [id number] [address] [place] [address] Dec, Bipolar 1 disorder, mixed F3 1.60 [facility] [address] [address] Nov, Bipolar 1 disorder, mixed F3 1.60 [facility] [address] [place] [id number] [address] [place] [address] Nov, Bipolar 1 disorder, mixed F3 1.60 [facility] [id number] [place] [address] Nov, Bipolar 1 disorder, mixed F3 1.60 [place] [address] [address] Nov, Allergic rhinitis J30.9 [place] [address] [address] Nov, Allergic rhinitis J30.9 [facility] [address] [place] [id number] [address] [place] [address] Nov, [facility] [address] [address] Nov, Bipolar 1 disorder, mixed F3 1.60 [facility] [address] [place] [id number] [address] [place] [address] Nov, Fibromyalgia M79.7 and Aller gic rhinitis J30.9 [place] [address] [place] [id number] [address] [place] [address] October, Bipolar 1 disorder, mixed F3 1.[address] [facility] [address] [place] [id number] [address] [place] [address] October, Acute nasopharyngitis J00 [facility] [address] [place] [id number] [address] [place] [address] October, Bitten or stung by nonvenomo us insect and other nonvenomous arthropods, initial encounter W57.XXXA and Insect bite (nonvenomous) of abdominal wall, initial encounter S30.861A [facility] [address] [place] [id number] [address] [place] [address] October, Insect bite (nonvenomous) of abdominal wall, initial encounter S30.861A ; Bitten or stung by nonvenomous insect and other nonvenomous arthropods, initial encounter W57.XXXA ; Allergic rhinitis J30.9 and Low back pain M54.5 [facility] [address] [facility] [id number] [address] [place] [address] October, Bipolar 1 disorder, mixed F3 1.60 [facility] [address] [place] [id number] [address] [place] [address] October, [facility] [address] [place] [id number] [address] [place] [address] October, [facility] [address] [place] [id number] [address] [place] [address] October, Bipolar 1 disorder, mixed F3 1.60 [facility] [address] [place] [id number] [address] [place] [address] Sep, Bipolar 1 disorder, mixed F3 1.60 [facility] [address] [place] [id number] [address] [place] [address] Sep, Other chronic pain G89.29 [facility] [address] [place] [id number] [address] [place] [address] Sep, [facility] [address] [place] [id number] [address] [place] [address] Sep, Bipolar 1 disorder, mixed F3 1.60 [facility] [address] [place] [id number] [address] [place] [address] Sep, Allergic rhinitis J30.9 and Sciatica of left side M54.32 [facility] [address] [place] [id number] [address] [place] [address] Sep, Bipolar 1 disorder, mixed F3 1.60 [facility] [address] [facility] [id number] [address] [place] [address] Sep, Bipolar 1 disorder, mixed F3 1.60 and Generalized anxiety disorder F41.1 [facility] [address] [facility] [id number] [address] [place] [address] Aug, [facility] [address] [facility] [id number] [address] [place] [address] Aug, Bipolar 1 disorder, mixed F3 1.60 [facility] [address] [facility] [id number] [address] [place] [address] Aug, Bipolar 1 disorder, mixed F3 1.60 [facility] [address] [facility] [id number] [address] [place] [address] Aug, [facility] [address] [place] [id number] [address] [place] [address] Aug, Generalized anxiety disorder F41.1 [facility] [address] [place] [id number] [address] [place] [address] Aug, Bipolar 1 disorder, mixed F3 1.60 [facility] [address] [facility] [id number] [address] [place] [address] Aug, Plantar wart of right foot B 07.0 [facility] [address] [facility] [id number] [address] [place] [address] Aug, Bipolar 1 disorder, mixed F3 1.60 [facility] [address] [facility] [id number] [address] [place] [address] Jul, Bipolar 1 disorder, mixed F3 1.60 [facility] [address] [facility] [id number] [address] [place] [address] Jul, [facility] [address] [facility] [id number] [address] [place] [address] Jul, Bipolar 1 disorder, mixed F3 1.60 [facility] [address] [facility] [id number] [address] [place] [address] 09 Jul, 2017 Generalized anxiety disorder F41.1 [facility] [address] [facility] [id number] [address] [place] [address] 07 Jul, 2017 Bipolar 1 disorder, mixed F3 1.60 [facility] [address] [facility] [id number] [address] [place] [address] 07 Jul, 2017 Acute left-sided low back pa in with left-sided sciatica M54.42 [facility] [address] [facility] [id number] [address] [place] [address] Jul, Coccydynia M53.3 [place] [address] [facility] [id number] [address] [place] [address] Jun, Bipolar 1 disorder, mixed F3 1.60 [facility] [address] [facility] [id number] [address] [place] [address] Jun, Acute nasopharyngitis J00 [place] [address] [facility] [id number] [address] [place] [address] Jun, Bipolar 1 disorder, mixed F3 1.60 [place] [address] [facility] [id number] [address] [place] [address] Jun, Fibromyalgia M79.7 [facility] [address] [facility] [id number] [address] [place] [address] Jun, Bipolar 1 disorder, mixed F3 1.60 [place] [address] [facility] [id number] [address] [place] [address] Jun, Fibromyalgia M79.7 and Bipol ar 1 disorder, mixed F31.60 [facility] [address] [facility] [id number] [address] [place] [address] May, Bipolar 1 disorder, mixed F3 1.60 ; Generalized anxiety disorder F41.1 and 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 [facility] [address] [facility] [id number] [address] [place] [address] May, Bipolar 1 disorder, mixed F3 1.60 [facility] [address] [address] 14 May, 2017 Cough R05 and Body aches R52 [facility] [address] [address] 10 May, 2017 Bladder spasm N32.89 and Acu te cystitis without hematuria N30.00 [place] [address] [address] 07 May, 2017 Bipolar 1 disorder, mixed F3 1.60 [place] [address] [address] 30 Apr, 2017 [place] [address] [place] [address] 29 Apr, 2017 Major depressive disorder, r ecurrent episode, moderate F33.1 and Encounter for immunization Z23 [place] [address] [address] Apr, Bipolar 1 disorder, mixed F3 1.60 [place] [address] [address] 22 Apr, 2017 Bipolar 1 disorder, mixed F3 1.60 [place] [address] [address] 16 Apr, 2017 Bipolar 1 disorder, mixed F3 1.60 [place] [address] [address] 13 Apr, 2017 Yeast vaginitis B37.3 [place] [address] [address] 09 Apr, 2017 Bipolar 1 disorder, mixed F3 1.60 [facility] [address] [address] 07 Apr, [address] L03[address] for immunization Z23 [place] [address] [address] 02 Apr, 2017 Bipolar 1 disorder, mixed F3 1.60 [place] [address] [address] Mar, Bipolar 1 disorder, mixed F3 1.60 [place] [address] [place] [address] Mar, Bipolar 1 disorder, mixed F3 1.60 [place] [address] [address] Mar, Imbalance R26.89 [address] Encount er for immunization Z23 [place] [address] [address] Mar, Generalized anxiety disorder F41.1 [place] [address] [address] Mar, Bipolar 1 disorder, mixed F3 1.60 [place] [address] [address] Mar, Generalized anxiety disorder F41.1 [place] [address] [address] Mar, Bipolar 1 disorder, mixed F3 1.60 [place] [address] [address] Mar, Bipolar 1 disorder, mixed F3 1.60 [place] [address] [address] Feb, Bipolar 1 disorder, mixed F3 1.60 [place] [address] [address] Feb, Bipolar 1 disorder, mixed F3 1.60 and Generalized anxiety disorder F41.1 [place] [address] [address] Feb, Gastritis without bleeding, unspecified chronicity, unspecified gastritis type K29.70 ; Hammer toe of right foot M20.41 and Other viral warts B07.8 [place] [id number] [place] [address] 20 Feb, 2017 Bipolar 1 disorder, mixed F3 1.60 [facility] [address] [facility] [id number] [address] [place] [address] 13 Feb, 2017 Bipolar 1 disorder, mixed F3 1.60 [facility] [address] [place] [id number] [address] [place] [address] 05 Feb, 2017 Bipolar 1 disorder, mixed F3 1.60 [facility] [address] [facility] [id number] [address] [place] [address] Jan, Encounter for screening mamm ogram for breast cancer Z12.31 ; Other viral warts B07.8 and Allergic rhinitis J30.9 [place] [address] [facility] [id number] [address] [place] [address] Jan, Bipolar 1 disorder, mixed F3 1.60 [place] [address] [place] [id number] [address] [place] [address] Jan, Bipolar 1 disorder, mixed F3 1.60 [place] [address] [facility] [id number] [address] [place] [address] Jan, [place] [address] [facility] [id number] [address] [place] [address] Jan, Bipolar 1 disorder, mixed F3 1.60 [place] [address] [facility] [id number] [address] [place] [address] Jan, Bipolar 1 disorder, mixed F3 1.60 [place] [address] [facility] [id number] [address] [place] [address] Jan, Allergic rhinitis J30.9 ; He maturia R31.9 and Colon cancer screening Z12.11 [facility] [address] [facility] [id number] [address] [place] [address] Dec, Bipolar 1 disorder, mixed F3 1.60 [place] [address] [facility] [id number] [address] [place] [address] Dec, Bipolar 1 disorder, mixed F3 1.60 ; Generalized anxiety disorder F41.1 and Other chcf (current) drug therapy Z79.899 [facility] [address] [facility] [id number] [address] [place] [address] Dec, Bipolar 1 disorder, mixed F3 1.60 [facility] [address] [facility] [id number] [address] [place] [address] Dec, Bipolar 1 disorder, mixed F3 1.60 [facility] [address] [facility] [id number] [address] [place] [address] Dec, Bipolar 1 disorder, mixed F3 1.60 [place] [address] [facility] [id number] [address] [place] [address] Dec, Low back pain M54.5 and Recu rrent urinary tract infection N39.0 [facility] [address] [facility] [id number] [address] [place] [address] Nov, Bipolar 1 disorder, mixed F3 1.60 [facility] [address] [facility] [id number] [address] [place] [address] Nov, Bipolar 1 disorder, mixed F3 1.60 [place] [address] [facility] [id number] [address] [place] [address] Nov, Bipolar 1 disorder, mixed F3 1.60 [facility] [address] [facility] [id number] [address] [place] [address] Nov, Bipolar 1 disorder, mixed F3 1.60 [facility] [address] [facility] [id number] [address] [place] [address] Nov, [facility] [address] [facility] [id number] [address] [place] [address] Nov, Anesthesia of skin R20.0 ; F requent UTI N39.0 ; Tobacco abuse Z72.0 and Colon cancer screening Z12.11 [facility] [address] [facility] [id number] [address] [place] [address] Nov, Bipolar 1 disorder, mixed F3 1.60 [facility] [address] [facility] [id number] [address] [place] [address] October, Bipolar 1 disorder, mixed F3 1.60 [facility] [address] [facility] [id number] [address] [place] [address] October, Bipolar 1 disorder, mixed F3 1.60 [facility] [address] [place] [id number] [address] [place] [address] October, Bipolar 1 disorder, mixed F3 1.60 [facility] [address] [facility] [id number] [address] [place] [address] October, Bipolar 1 disorder, mixed F3 1.60 [facility] [address] [place] [id number] [place] [address] October, Bipolar 1 disorder, mixed F3 1.60 [facility] [address] [place] [id number] [address] [place] [address] October, Cervicalgia M54.2 and Bipola r 1 disorder, mixed F31.60 [facility] [address] [facility] [id number] [address] [place] [address] October, Hypertension I10 ; Hyperlipi demia, unspecified hyperlipidemia type E78.5 and Family history of thyroid disease Z83.49 [facility] [address] [place] [id number] [address] [place] [address] October, [facility] [address] [place] [id number] [address] [place] [address] October, Hypertension I10 ; Hyperlipi demia, unspecified hyperlipidemia type E78.5 and Family history of thyroid problem Z83.49 [facility] [address] [place] [id number] [address] [place] [address] October, Bipolar 1 disorder, mixed F3 1.60 [facility] [address] [place] [id number] [address] [place] [address] Sep, Bipolar 1 disorder, mixed F3 1.60 [facility] [address] [place] [id number] [address] [place] [address] Sep, Bipolar 1 disorder, mixed F3 1.60 [facility] [address] [place] [id number] [address] [place] [address] Sep, Bipolar 1 disorder, mixed F3 1.60 [facility] [address] [place] [id number] [address] [place] [address] Sep, History of colon polyps Z86. 010 and Hematochezia K92.1 [facility] [address] [facility] [id number] [address] [place] [address] Sep, Major depressive disorder, r ecurrent episode, moderate F33.1 [facility] [address] [place] [id number] [address] [place] [address] Sep, Bipolar 1 disorder, mixed F3 1.60 [place] [address] [place] [address] Aug, Hot flashes due to menopause N95.1 [facility] [address] [place] [id number] [address] [place] [address] Aug, Bipolar 1 disorder, mixed F3 1.60 [place] [address] [place] [id number] [address] [place] [address] Aug, [facility] [address] [place] [id number] [address] [place] [address] Aug, Bipolar 1 disorder, mixed F3 1.60 [facility] [address] [place] [id number] [address] [place] [address] Aug, Bipolar 1 disorder, mixed F3 1.60 [facility] [address] [place] [id number] [place] [address] Aug, Hot flashes due to menopause N95.1 ; Cervicalgia M54.2 and Ataxia R27.0 [facility] [address] [place] [id number] [address] [place] [address] Jul, Bipolar 1 disorder, mixed F3 1.60 [facility] [address] [address] Jul, Bipolar 1 disorder, mixed F3 1.60 [place] [address] [place] [address] Jul, Bipolar 1 disorder, mixed F3 1.60 [place] [address] [address] Jul, Bipolar 1 disorder, mixed F3 1.60 [place] [address] [address] Jul, Bipolar 1 disorder, mixed F3 1.60 [place] [address] [address] 08 Jul, 2016 Cervicalgia M54.2 ; Tremor R 25.1 ; Hearing abnormally acute, unspecified laterality H93.239 ; Alopecia L65.9 ; Encounter for immunization Z23 and Family history of thyroid disease Z83.49 [place] [address] [address] Jul, Bipolar 1 disorder, mixed F3 1.60 [place] [address] [address] Jun, [place] [address] [address] Jun, Hearing disorder, unspecifie d laterality H93.299 [place] [address] [address] Jun, Bipolar 1 disorder, mixed F3 1.60 [place] [address] [address] Jun, Bipolar 1 disorder, mixed F3 1.60 [place] [address] [address] Jun, Allergic rhinitis J30.9 [place] [address] [address] [place] [id number] [place] [id number] Jun, Bipolar 1 disorder, mixed F3 1.60 [facility] [address] [id number] [address] [place] [id number] Jun, Bipolar 1 disorder, mixed F3 1.60 [facility] [address] [facility] [id number] [address] [place] [id number] Jun, Allergic rhinitis J30.9 [facility] [address] [facility] [id number] [address] [place] [id number] Jun, Allergic rhinitis J30.9 [facility] [address] [id number] [address] [place] [id number] Jun, Bipolar 1 disorder, mixed F3 1.60 [facility] [address] [facility] [id number] [address] [place] [id number] May, Bipolar 1 disorder, mixed F3 1.60 [facility] [address] [facility] [id number] [address] [place] [phone] May, Bipolar 1 disorder, mixed F3 1.60 [facility] [address] [facility] [id number] [address] [place] [id number] May, [facility] [address] [facility] [id number] [address] [place] [id number] May, Bipolar 1 disorder, mixed F3 1.60 [facility] [address] [facility] [id number] [address] [place] [id number] May, Bipolar 1 disorder, mixed F3 1.60 [facility] [address] [facility] [facility] [id number] [address] [place] [address] May, [facility] [address] [facility] [id number] [address] [place] [address] May, [facility] [address] [facility] [id number] [address] [place] [address] May, [facility] [address] [facility] [id number] [address] [place] [address] May, Abdominal pain, unspecified location R10.9 [place] [address] [id number] May, [facility] [address] [id number] Apr, Hematuria R31.9 ; Ataxia R27 .0 and Hearing loss, unspecified laterality H91.90 [facility] [address] [id number] Apr, Bipolar 1 disorder, mixed F3 1.[address] [facility] [address] [address] Apr, Acute effusion of both middl e ears H65.193 [place] [address] [address] Apr, Hematuria R31.9 and Pyelonep hritis N12 [facility] [address] [address] Apr, [place] [address] [id number] Mar, Bipolar 1 disorder, mixed F3 1.60 [place] [address] [address] Mar, [facility] [address] [address] Mar, Bipolar 1 disorder, mixed F3 1.60 [place] [address] [address] Mar, Bipolar 1 disorder, mixed F3 1.60 [place] [address] [address] Mar, Encounter for immunization Z 23 and Gastritis without bleeding, unspecified chronicity, unspecified gastritis type K29.70 [place] [address] [address] Mar, Bipolar 1 disorder, mixed F3 1.60 and Grief F43.20 [place] [address] [place] [id number] Mar, Gastritis without bleeding, unspecified chronicity, unspecified gastritis type K29.70 [place] [address] [place] [id number] [address] [place] [id number] Mar, Bipolar 1 disorder, mixed F3 1.60 [place] [address] [place] [id number] [place] [id number] Mar, Gastritis without bleeding, unspecified chronicity, unspecified gastritis type K29.70 [place] [address] Mar, [place] [address] [place] [id number] [place] [id number] Feb, Bipolar 1 disorder, mixed F3 1.60 [place] [address] [place] [id number] [address] [place] [address] Feb, Bipolar 1 disorder, mixed F3 1.60 and Grief F43.20 [place] [address] [place] [id number] Feb, Gastritis without bleeding, unspecified chronicity, unspecified gastritis type K29.70 [place] [address] [place] [address] 14 Feb, 2016 Bipolar 1 disorder, mixed F3 1.60 [facility] [address] [place] [id number] [address] [place] [address] 09 Feb, 2016 Gastroesophageal reflux dise ase, esophagitis presence not specified K21.9 [place] [address] [place] [id number] [address] [place] [address] Jan, Bipolar 1 disorder, mixed F3 1.60 [place] [address] [place] [id number] [address] [place] [address] Jan, Bipolar 1 disorder, mixed F3 1.60 and Unsteady gait R26.81 [facility] [address] [id number] [address] [place] [address] Jan, Bipolar 1 disorder, mixed F3 1.60 [facility] [address] [id number] [address] [place] [address] Jan, Bipolar 1 disorder, mixed F3 1.60 and Other chcf (current) drug therapy Z79.899 [facility] [address] [id number] [address] [place] [address] Jan, Bipolar 1 disorder, mixed F3 1.60 [place] [address] [facility] [id number] [address] [place] [address] Jan, Bipolar 1 disorder, mixed F3 1.60 [place] [address] [facility] [id number] [address] [place] [address] Jan, Bipolar 1 disorder, mixed F3 1.60 ; Grief F43.20 and 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 [facility] [address] [facility] [id number] [address] [place] [address] Jan, Bipolar 1 disorder, mixed F3 1.60 [facility] [address] [facility] [id number] [address] [place] [address] Dec, [facility] [address] [facility] [id number] [address] [place] [address] Dec, Bipolar 1 disorder, mixed F3 1.60 ; Vitamin D deficiency, unspecified E55.9 ; H/O allergic rhinitis Z87.09 ; Other chronic pain G89.29 and Dorsalgia, unspecified M54.9 [facility] [address] [facility] [id number] [address] [place] [address] Dec, [facility] [address] [facility] [id number] [address] [place] [address] Dec, Bipolar 1 disorder, mixed F3 1.60 [facility] [address] [address] [address] Dec, Major depressive disorder, r ecurrent episode, moderate F33.1 [place] [address] [address] Dec, Major depressive disorder, r ecurrent episode, moderate F33.1 [place] [address] [address] Nov, [place] [address] [address] Nov, Bipolar 1 disorder, mixed F3 1.60 [place] [address] [address] Nov, Major depressive disorder, r ecurrent episode, moderate F33.1 [place] [address] [address] Nov, Cervicalgia M54.2 ; Arthralg ia of hip, unspecified laterality M25.559 ; Allergic rhinitis J30.9 and Hormone replacement therapy Z79.890 [facility] [address] [address] Nov, Other seasonal allergic rhin itis J30.2 [place] [address] [address] October, Major depressive disorder, r ecurrent episode, moderate F33.1 [place] [address] [address] October, Major depressive disorder, r ecurrent episode, moderate F33.1 and Arthralgia of hip, unspecified laterality M25.559 [place] [address] [address] October, Grief F43.20 ; Hypertension I10 ; Hyperlipidemia, unspecified hyperlipidemia type E78.5 ; Other chronic pain G89.29 and Allergic rhinitis, unspecified allergic rhinitis type J30.9 [facility] [address] [place] [id number] [place] [address] October, Major depressive disorder, r ecurrent episode, moderate F33.1 [place] [address] [id number] [address] [place] [address] Sep, Major depressive disorder, r ecurrent episode, moderate F33.1 [place] [address] [facility] [id number] [address] [place] [address] Sep, [place] [address] [facility] [id number] [address] [place] [address] Sep, Major depressive disorder, r ecurrent episode, moderate F33.1 [place] [address] [facility] [id number] [address] [place] [address] Sep, Grief F43.20 [place] [address] [facility] [id number] [address] [place] [address] Aug, Major depressive disorder, r ecurrent episode, moderate F33.1 [place] [address] [facility] [id number] [address] [place] [address] Aug, Bipolar 1 disorder, mixed F3 1.60 [place] [address] [facility] [id number] [address] [place] [address] Aug, Allergic rhinitis J30.9 ; Ce rvicalgia M54.2 and Low back pain M54.5 [place] [address] [facility] [id number] [address] [place] [address] Aug, Major depressive disorder, r ecurrent episode, moderate F33.[address] [facility] [address] [facility] [id number] [address] [place] [address] Aug, Sinusitis J32.9 and Tobacco 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 [facility] [address] [facility] [id number] [address] [place] [address] Aug, [place] [address] [facility] [id number] [address] [place] [address] Aug, Depressive disorder, not els ewhere classified F32.9 ; Hormone replacement therapy Z79.[address] scan, head R93.0 [facility] [address] [id number] [address] [place] [address] Aug, Major depressive disorder, r ecurrent episode, moderate F33.1 [facility] [address] [id number] [address] [place] [address] Jul, Major depressive disorder, r ecurrent episode, moderate F33.1 [facility] [address] [id number] [address] [place] [address] Jul, Abdominal pain R10.9 and Hyp ertension I10 [facility] [address] [id number] [address] [place] [address] Jul, [facility] [address] [id number] [address] [place] [address] Jul, Major depressive disorder, r ecurrent episode, moderate F33.1 [facility] [address] [id number] [address] [place] [address] Jul, [facility] [address] [id number] [address] [place] [address] Jul, [facility] [address] [id number] [address] [place] [address] Jun, [facility] [address] [id number] [address] [place] [address] Jun, Depressive disorder, not els ewhere classified F32.9 [facility] [address] [id number] [address] [place] [address] Jun, [facility] [address] [id number] [address] [place] [address] Jun, [facility] [address] [id number] [address] [place] [address] Jun, Arthralgia of hip, unspecifi ed laterality M25.559 ; Bruising, spontaneous R23.3 and Night sweats R61 [facility] [address] [id number] [address] [place] [address] Jun, [facility] [address] [facility] [id number] [address] [place] [address] Jun, [facility] [address] [facility] [id number] [address] [place] [address] May, [facility] [address] [facility] [id number] [address] [place] [address] May, Myalgia M79.1 and Screening, lipid Z13.220 [facility] [address] [place] [id number] [address] [place] [address] Apr, Status post cervical spinal fusion Z98.1 ; Fibromyalgia M79.7 and Unsteady gait R26.81 [facility] [address] [place] [id number] [address] [place] [address] Nov, [facility] [address] [facility] [id number] [address] [place] [address] Nov, [facility] [address] [place] [id number] [address] [place] [address] October, [facility] [address] [facility] [id number] [address] [place] [address] October, [facility] [address] [facility] [id number] [address] [place] [address] October, [facility] [address] [facility] [id number] [address] [place] [address] October, [facility] [address] [facility] [id number] [address] [place] [address] October, [facility] [address] [facility] [id number] [address] [place] [address] October, Dysuria 788.1 ; Nausea 787.0 2 and Urinary tract infection 599.0 [facility] [address] [id number] [address] [place] [address], [place] [id number] 14 Sep, 2014 [facility] [address] [id number] [address] [place] [address], [place] [id number] 13 Sep, 2014 [facility] [address] [id number] [address] [place] [address], [place] [id number] 25 Aug, 2014 [facility] [address] [id number] [address] [place] [address], [place] [id number] 25 Aug, 2014 [facility] [address] [id number] [address] [place] [address], [place] [id number] 24 Aug, 2014 [facility] [address] [id number] [address] [place] [address], [place] [id number] 24 Aug, 2014 [facility] [address] [id number] [address] [place] [address], [place] [id number] 23 Aug, 2014 [facility] [address] [id number] [address] [place] [address], [place] [id number] 19 Aug, 2014 [facility] [address] [id number] [address] [place] [address], [place] [id number] 19 Aug, 2014 [facility] [address] [id number] [address] [place] [address], [place] [id number] 19 Aug, 2014 [facility] [address] [id number] [address] [place] [address], [place] [id number] 19 Aug, 2014 [facility] [address] [id number] [address] [place] [address], [place] [id number] 18 Aug, 2014 [facility] [address] [id number] [address] [place] [address], [place] [id number] 18 Aug, 2014 [facility] [address] [id number] [address] [place] [address], [place] [id number] 13 Aug, 2014 [facility] [address] [id number] [address] [place] [address], [place] [id number] 13 Aug, 2014 [facility] [address] [id number] [address] [place] [address], [place] [id number] Aug, [facility] [address] [id number] [address] [place] [address], [place] [id number] Aug, [facility] [address] [id number] [address] [place] [address], [place] [id number] Aug, 2014 [facility] [address] [id number] [address] [place] [address], [place] [id number] Aug, 2014 [facility] [address] [id number] [address] [place] [address], [place] [id number] Aug, 2014 [facility] [address] [id number] [address] [place] [address], [place] [id number] Aug, 2014 [facility] [address] [id number] [address] [place] [address], [place] [id number] Aug, [facility] [address] [id number] [address] [place] [address], [place] [id number] Aug, [facility] [address] [id number] [address] [place] [address], [place] [id number] Aug, [facility] [address] [id number] [address] [place] [address], [place] [id number] Jul, [facility] [address] [id number] [address] [place] [address], [place] [id number] Jul, [facility] [address] [id number] [address] [place] [address], [place] [id number] Jul, [facility] [address] [id number] [address] [place] [address] Jul, [facility] [address] [id number] [address] [place] [address], [place] [id number] Jul, [facility] [address] [id number] [address] [place] [address], [place] [id number] Jul, [facility] [address] [id number] [address] [place] [address], [place] [id number] Jul, [facility] [address] [id number] [address] [place] [address], [place] [id number] Jul, 2014 [facility] [address] [id number] [address] [place] [address], [place] [id number] Jul, 2014 [facility] [address] [id number] [address] [place] [address], [place] [id number] Jul, 2014 [facility] [address] [id number] [address] [place] [address], [place] [id number] Jul, 2014 [facility] [address] [id number] [address] [place] [address], [place] [id number] Jul, 2014 [facility] [address] [id number] [address] [place] [address], [place] [id number] Jul, [facility] [address] [id number] [address] [place] [address], [place] [id number] Jul, [facility] [address] [id number] [address] [place] [address], [place] [id number] Jun, [facility] [address] [id number] [address] [place] [address], [place] [id number] Jun, [facility] [address] [id number] [address] [place] [address], [place] [id number] Jun, [facility] [address] [id number] [address] [place] [address], [place] [id number] Jun, [facility] [address] [id number] [address] [place] [address], [place] [id number] Jun, [facility] [address] [id number] [address] [place] [address], [place] [id number] Jun, [facility] [address] [id number] [address] [place] [address], [place] [id number] May, [facility] [address] [id number] [address] [place] [address], [place] [id number] May, [facility] [address] [id number] [address] [place] [address] [place] [address] May, [facility] [address] [id number] [address] [place] [address], [place] [id number] May, [facility] [address] [id number] [address] [place] [address], [place] [id number] May, [facility] [address] [id number] [address] [place] [address], [place] [id number] May, [facility] [address] [id number] [address] [place] [address], [place] [id number] Apr, [facility] [address] [id number] [address] [place] [address], [place] [id number] Apr, [facility] [address] [id number] [address] [place] [address], [place] [id number] Apr, [facility] [address] [id number] [address] [place] [address], [place] [id number] Apr, [facility] [address] [id number] [address] [place] [address], [place] [id number] Apr, [facility] [address] [id number] [address] [place] [address], [place] [id number] Apr, [facility] [address] [id number] [address] [place] [address], [place] [id number] Mar, [facility] [address] [id number] [address] [place] [id number] Mar, [facility] [address] [id number] [address] [place] [address] Mar, [facility] [address] [id number] [address] [place] [address], [place] [id number] Mar, [facility] [address] [id number] [address] [place] [address] Mar, [facility] [address] [id number] [address] [place] [address] Mar, [facility] [address] [id number] [address] [place] [address], [place] [id number] Mar, [facility] [address] [id number] [address] [place] [address], [place] [id number] Mar, [facility] [address] [id number] [address] [place] [address], [place] [id number] Mar, [facility] [address] [id number] [address] [place] [address], [place] [id number] Mar, [facility] [address] [id number] [address] [place] [address], [place] [id number] Mar, [facility] [address] [id number] [address] [place] [address], [place] [id number] Mar, [facility] [address] [id number] [address] [place] [address], [place] [id number] 30 Feb, 2013 [facility] [address] [id number] [address] [place] [address], [place] [id number] 29 Feb, 2013 [facility] [address] [id number] [address] [place] [address], [place] [id number] 29 Feb, 2013 [facility] [address] [id number] [address] [place] [address], [place] [id number] 23 Feb, 2013 [facility] [address] [id number] [address] [place] [address], [place] [id number] 23 Feb, 2013 [facility] [address] [id number] [address] [place] [address], [place] [id number] 08 Feb, 2013 [facility] [address] [id number] [address] [place] [address], [place] [id number] 08 Feb, 2013 [facility] [address] [id number] [address] [place] [address], [place] [id number] Jan, [facility] [address] [id number] [address] [place] [address], [place] [id number] Jan, [facility] [address] [id number] [address] [place] [address], [place] [id number] Jan, [facility] [address] [id number] [address] [place] [address], [place] [id number] Dec, [facility] [address] [id number] [address] [place] [address], [place] [id number] Dec, [facility] [address] [id number] [address] [place] [address], [place] [id number] Dec, [facility] [address] [id number] [address] [place] [address], [place] [id number] Dec, [facility] [address] [id number] [address] [place] [address], [place] [id number] Sep, [facility] [address] [id number] [address] [place] [address], [place] [id number] Sep, [facility] [address] [id number] [address] [place] [address], [place] [id number] Sep, [facility] [address] [id number] [address] [place] [address], [place] [id number] Sep, [facility] [address] [id number] [address] [place] [address], [place] [id number] Sep, [facility] [address] [id number] [address] [place] [address], [place] [id number] Sep, [facility] [address] [id number] [address] [place] [address], [place] [id number] Sep, [facility] [address] [id number] [address] [place] [address], [place] [id number] Sep, [facility] [address] [id number] [address] [place] [address], [place] [id number] Aug, [facility] [address] [id number] [address] [place] [address], [place] [id number] Aug, [facility] [address] [id number] [address] [place] [address], [place] [id number] May, [facility] [address] [id number] [address] [place] [address], [place] [id number] May, [facility] [address] [id number] [address] [place] [address], [place] [id number] Apr, [facility] [address] [id number] [address] [place] [address], [place] [id number] Apr, [facility] [address] [id number] [address] [place] [address], [place] [id number] Apr, [facility] [address] [id number] [address] [place] [address], [place] [id number] Apr, [facility] [address] [id number] [address] [place] [address], [place] [id number] Apr, [facility] [address] [id number] [address] [place] [address], [place] [id number] Apr, [facility] [address] [id number] [address] [place] [address], [place] [id number] May, [facility] [address] [id number] [address] [place] [address], [place] [id number] 18 May, 2012 [facility] [address] [id number] [address] [place] [address], [place] [id number] 15 May, 2012 [facility] [address] [id number] [address] [place] [address], [place] [id number] 15 May, 2012 [facility] [address] [id number] [address] [place] [address], [place] [id number] 13 May, 2012 [facility] [address] [id number] [address] [place] [address], [place] [id number] 13 May, 2012 [facility] [address] [id number] [address] [place] [address], [place] [id number] 13 Apr, 2012 [facility] [address] [id number] [address] [place] [address], [place] [id number] 13 Apr, 2012 [facility] [address] [id number] [address] [place] [address], [place] [id number] 08 Apr, 2012 [facility] [address] [id number] [address] [place] [address], [place] [id number] 08 Apr, 2012 [facility] [address] [id number] [address] [place] [address], [place] [id number] Apr, [facility] [address] [id number] [address] [place] [address], [place] [id number] Apr, [facility] [address] [id number] [address] [place] [address], [place] [id number] Apr, [facility] [address] [id number] [address] [place] [address], [place] [id number] Apr, [facility] [address] [id number] [address] [place] [address], [place] [id number] Apr, [facility] [address] [id number] [address] [place] [address], [place] [id number] Apr, [facility] [address] [id number] [address] [place] [address], [place] [id number] Mar, [facility] [address] [id number] [address] [place] [address], [place] [id number] Mar, [facility] [address] [id number] [address] [place] [address], [place] [id number] Mar, [facility] [address] [id number] [address] [place] [address], [place] [id number] Mar, [facility] [address] [id number] [address] [place] [address], [place] [id number] Mar, [facility] [address] [id number] [address] [place] [address], [place] [id number] Mar, [facility] [address] [id number] [address] [place] [address], [place] [id number] Mar, [facility] [address] [id number] [address] [place] [address], [place] [id number] Mar, [facility] [address] [id number] [address] [place] [address], [place] [id number] Mar, [facility] [address] [id number] [address] [place] [address], [place] [id number] 25 Feb, 2012 [facility] [address] [id number] [address] [place] [address], [place] [id number] 16 Feb, 2012 [facility] [address] [id number] [address] [place] [address], [place] [id number] 11 Feb, 2012 [facility] [address] [id number] [address] [place] [address], [place] [id number] Jan, [facility] [address] [id number] [address] [place] [address], [place] [id number] Jan, [facility] [address] [id number] [address] [place] [address], [place] [id number] Jan, [facility] [address] [id number] [address] [place] [address], [place] [id number] Jan, [facility] [address] [id number] [address] [place] [address], [place] [id number] Jan, [facility] [address] [id number] [address] [place] [address], [place] [id number] Jan, [facility] [address] [id number] [address] [place] [address], [place] [id number] Jan, [facility] [address] [id number] [address] [place] [address], [place] [id number] Jan, [facility] [address] [id number] [address] [place] [address], [place] [id number] Jan, [facility] [address] [id number] [address] [place] [address], [place] [id number] Jan, [facility] [address] [id number] [address] [place] [address], [place] [id number] Dec, [facility] [address] [id number] [address] [place] [address], [place] [id number] 24 Dec, 2011 [facility] [address] [id number] [address] [place] [id number] Dec, [facility] [address] [id number] [address] [place] [address], [place] [id number] Dec, [facility] [address] [id number] [address] [place] [address], [place] [id number] Nov, [facility] [address] [id number] [address] [place] [address], [place] [id number] Nov, [facility] [address] [id number] [address] [place] [address], [place] [id number] Nov, [facility] [address] [id number] [address] [place] [address], [place] [id number] October, [facility] [address] [id number] [address] [place] [address], [place] [id number] October, [facility] [address] [id number] [address] [place] [address], [place] [id number] October, [facility] [address] [id number] [address] [place] [address], [place] [id number] October, [facility] [address] [id number] [address] [place] [address], [place] [id number] October, [facility] [address] [id number] [address] [place] [address], [place] [id number] October, [facility] [address] [id number] [address] [place] [address], [place] [id number] Aug, [facility] [address] [id number] [address] [place] [address], [place] [id number] Mar, [facility] [address] [id number] [address] [place] [address], [place] [id number] 16 Nov, 2010 [facility] [address] [id number] [address] [place] [address], [place] [id number] May, [facility] [address] [id number] [address] [place] [address], [place] [id number] May, [facility] [address] [facility] [id number] [address] [id number] Apr, [facility] [address] [facility] [id number] [address] [place] [id number] Mar, [facility] [address] [facility] [id number] [address] [place] [id number] Mar, IMMUNIZATIONS No Known Immunizations SOCIAL HISTORY Never Assessed REASON FOR VISIT FYI only PLAN OF CARE VITAL SIGNS MEDICATIONS Medication Instructions Dosage Frequency Start Date End Date Duration S tatus Oxybutynin Chloride ER 10 MG Orally Once a day 1 tablet 24h October, 30 day(s) Active RESULTS No Results PROCEDURES [...]
--- OUTSIDE RECORDS SUMMARY | 2019-06-19 05:36 | XMS REPORT ---
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 Name Role Phone JOHN MORTON Unavailable PROBLEMS Type Condition ICD9-CM Code [id number] Code Onset Dates Condition S tatus SNOMED Code Problem Hormone replacement therapy Z79.890 Ac tive 668618651 Problem Abnormal CT scan, head R93.0 Active 866417599 Problem Sensorineural hearing loss (SNHL) of both ears H90 .3 Active 771668186 Problem History of colon polyps Z86.010 Active 120707636 Problem Bruising, spontaneous R23.3 Active 690969499 Problem Generalized anxiety disorder F41.1 A ctive 97886895 Problem Arthralgia of hip, unspecified laterality M25.559 Active 35856291 Problem Hematuria, unspecified type R31.9 Ac tive 88527456 Problem Imbalance R26.89 Active 006826097 Problem Hammer toe of right foot M20.41 Activ e 371985092 Problem Plantar wart of right foot B07.0 Act mitchell [id number] Problem Sciatica of left side M54.32 Active 78250605 Problem Hyperlipidemia, unspecified hyperlipidemia type E7 8.5 Active 86273580 Problem Hypertension I10 Active 5692853 3 Problem Night sweats R61 Active 8802716 0 Problem Fibromyalgia M79.7 Active 9091713 7 Problem Major depressive disorder, recurrent episode, moderate F33.1 Active 334101212 Problem Acute left-sided low back pain with left-sided sciatica M54.42 Active 779710718 Problem Bladder spasm N32.89 Active 336792 006 Problem Gastritis without bleeding, unspecified chronicity, unspecified gastritis type K29.70 Active 196330706 Problem Bipolar 1 disorder, mixed F31.60 Acti ve 96135035 Problem Grief F43.20 Active 67344052 Problem Other chronic pain G89.29 Active 8 8189807 Problem Allergic rhinitis J30.9 Active 61 510568 Problem Hot flashes due to menopause N95.1 A ctive 059263771 Problem Ataxia R27.0 Active 36007181 Problem Hearing loss, unspecified laterality H91.90 Active 79096410 ALLERGIES No Information ENCOUNTERS Encounter Location Date Diagnosis [facility], [place] [address] [id number] [address] [place] [address] Mar, [facility] [place] [address] [id number] [address] [place] [address] Jan, [facility], [place] [address] [id number] [address] [place] [address] Jan, [facility] [place] [address] [id number] [address] [place] [address] Jan, [facility], [place] [address] [id number] [address] [place] [address] Jan, [facility] [place] [address] [id number] [address] [place] [address] Jan, Bipolar 1 disorder, mixed F3 1.60 [facility] [place] [address] [id number] [address] [place] [address] Dec, Bipolar 1 disorder, mixed F3 1.60 ; Generalized anxiety disorder F41.1 and Other skilled nursing (current) drug therapy Z79.899 [facility] [place] [address] [id number] [address] [place] [address] Dec, 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 Z79.899 [facility] [place] [address] [id number] [address] [place] [address] Dec, Bipolar 1 disorder, mixed F3 1.60 [facility] [place] [address] [id number] [address] [place] [address] Dec, Bipolar 1 disorder, mixed F3 1.60 [facility] [place] [address] [id number] [address] [place] [address] Nov, Bipolar 1 disorder, mixed F3 1.60 [facility] [place] [address] [id number] [address] [place] [address] 27 Nov, 2017 Bipolar 1 disorder, mixed F3 1.60 [facility] [place] [address] [id number] [address] [place] [address] Nov, Bipolar 1 disorder, mixed F3 1.60 [place] [place] [address] [place] [id number] [address] [place] [address] Nov, Allergic rhinitis J30.9 [facility] [place] [address] [place] [place] [id number] [address] [place] [address] Nov, Allergic rhinitis J30.9 [place] [address] [place] [id number] [place] [address] Nov, [place] [address] [place] [id number] [place] [address] Nov, Bipolar 1 disorder, mixed F3 1.60 [place] [address] [address] Nov, Fibromyalgia M79.7 and Aller gic rhinitis J30.9 [facility] [place] [address] [place] [id number] [place] [address] October, Bipolar 1 disorder, mixed F3 1.60 [facility] [address] [id number] [address] [place] [address] October, Acute nasopharyngitis J00 [facility] [address] [place] [id number] [address] [place] [address] October, Bitten or stung by nonvenomo us insect and other nonvenomous arthropods, initial encounter W57.XXXA and Insect bite (nonvenomous) of abdominal wall, initial encounter S30.861A [facility], [place] [address] [id number] [address] [place] [address] October, Insect bite (nonvenomous) of abdominal wall, initial encounter S30.861A ; Bitten or stung by nonvenomous insect and other nonvenomous arthropods, initial encounter W57.XXXA ; Allergic rhinitis J30.9 and Low back pain M54.5 [facility] [place] [address] [id number] [address] [place] [address] October, Bipolar 1 disorder, mixed F3 1.60 [facility] [place] [address] [place] [place] [id number] [address] [place] [address] October, [facility] [place] [address] [id number] [address] [place] [address] October, [facility] [place] [address] [id number] [address] [place] [address] October, Bipolar 1 disorder, mixed F3 1.60 [facility] [place] [address] [place] [place] [id number] [address] [place] [address] Sep, Bipolar 1 disorder, mixed F3 1.60 [facility] [place] [address] [place] [id number] [address] [place] [address] Sep, Other chronic pain G89.29 [facility], [place] [address] [id number] [address] [place] [address] Sep, [facility] [place] [address] [id number] [address] [place] [address] Sep, Bipolar 1 disorder, mixed F3 1.60 [facility] [place] [address] [id number] [address] [place] [address] Sep, Allergic rhinitis J30.9 and Sciatica of left side M54.32 [facility] [place] [address] [id number] [address] [place] [address] Sep, Bipolar 1 disorder, mixed F3 1.60 [facility] [place] [address] [id number] [address] [place] [address] Sep, Bipolar 1 disorder, mixed F3 1.60 and Generalized anxiety disorder F41.1 [facility] [place] [address] [id number] [address] [place] [address] Aug, [facility] [place] [address] [id number] [address] [place] [address] Aug, Bipolar 1 disorder, mixed F3 1.60 [facility] [place] [address] [id number] [address] [place] [address] Aug, Bipolar 1 disorder, mixed F3 1.60 [facility] [place] [address] [id number] [address] [place] [address] Aug, [facility] [place] [address] [id number] [address] [place] [address] Aug, Generalized anxiety disorder F41.1 [facility] [place] [address] [id number] [address] [place] [address] Aug, Bipolar 1 disorder, mixed F3 1.60 [facility] [place] [address] [id number] [address] [place] [address] Aug, Plantar wart of right foot B 07.0 [facility] [place] [address] [id number] [address] [place] [address] Aug, Bipolar 1 disorder, mixed F3 1.60 [facility] [place] [address] [id number] [address] [place] [address] Jul, Bipolar 1 disorder, mixed F3 1.60 [facility] [place] [address] [id number] [address] [place] [address] Jul, [facility] [place] [address] [id number] [address] [place] [address] 14 Jul, 2017 Bipolar 1 disorder, mixed F3 1.60 [facility] [place] [address] [id number] [address] [place] [address] 09 Jul, 2017 Generalized anxiety disorder F41.1 [facility] [place] [address] [id number] [address] [place] [address] Jul, Bipolar 1 disorder, mixed F3 1.60 [facility] [place] [address] [id number] [address] [place] [address] 07 Jul, 2017 Acute left-sided low back pa in with left-sided sciatica M54.42 [facility] [place] [id number] [place] [address] 05 Jul, 2017 Coccydynia M53.3 [facility] [place] [address] [id number] [address] [place] [address] Jun, Bipolar 1 disorder, mixed F3 1.60 [facility] [address] [id number] [place] [address] Jun, Acute nasopharyngitis J00 [place] [address] [address] Jun, Bipolar 1 disorder, mixed F3 1.60 [place] [address] [address] Jun, Fibromyalgia M79.7 [facility], [place] [address] [address] Jun, Bipolar 1 disorder, mixed F3 1.60 [place] [address] [address] Jun, Fibromyalgia M79.7 and Bipol ar 1 disorder, mixed F31.60 [facility] [place] [address] [place] [id number] [address] [place] [address] May, Bipolar 1 disorder, mixed F3 1.60 ; Generalized anxiety disorder F41.1 and Other skilled nursing (current) drug therapy Z79.899 [facility], [place] [address] [id number] [address] [place] [address] May, Bipolar 1 disorder, mixed F3 1.60 [facility] [address] [id number] [address] [place] [address] 14 May, 2017 Cough R05 and Body aches R52 [facility] [address] [id number] [address] [place] [address] May, Bladder spasm N32.89 and Acu te cystitis without hematuria N30.00 [facility] [place] [address] [address] 07 May, 2017 Bipolar 1 disorder, mixed F3 1.60 [facility], [place] [address] [place] [id number] [address] [place] [address] 30 Apr, 2017 [place] [address] Apr, Major depressive disorder, r ecurrent episode, moderate F33.1 and Encounter for immunization Z23 [place] [address] Apr, Bipolar 1 disorder, mixed F3 1.60 [place] [address] [address] Apr, Bipolar 1 disorder, mixed F3 1.60 [place] [address] [address] Apr, Bipolar 1 disorder, mixed F3 1.60 [place] [address] [address] Apr, Yeast vaginitis B37.3 [place] [address] [address] 09 Apr, 2017 Bipolar 1 disorder, mixed F3 1.60 [facility] [address] [place] [id number] [address] [place] [address] 07 Apr, 2017 [address]ulitis L03.[address] for immunization Z23 [facility], [place] [address] [address] Apr, Bipolar 1 disorder, mixed F3 1.60 [place] [address] [place] [id number] [place], [place] [id number] Mar, Bipolar 1 disorder, mixed F3 1.60 [place] [address] [address] Mar, Bipolar 1 disorder, mixed F3 1.60 [place] [address] [place] [address] Mar, Imbalance R26.89 and Encount er for immunization Z23 [place] [address] [place] [id number] [address] [place] [address] Mar, Generalized anxiety disorder F41.1 [place] [address] [place] [address] Mar, Bipolar 1 disorder, mixed F3 1.60 [place] [address] [place] [address] Mar, Generalized anxiety disorder F41.1 [place] [address] [place] [id number] [address] [place], [place] [address] Mar, Bipolar 1 disorder, mixed F3 1.60 [place] [address] [place] [id number] [address] [place] [address] Mar, Bipolar 1 disorder, mixed F3 1.60 [place] [address] [place] [address] Feb, Bipolar 1 disorder, mixed F3 1.60 [place] [address] [place] [id number] [address] [place] [address] Feb, Bipolar 1 disorder, mixed F3 1.60 and Generalized anxiety disorder F41.1 [place] [address] [place] [id number] [address] [place] [address] Feb, Gastritis without bleeding, unspecified chronicity, unspecified gastritis type K29.70 ; Hammer toe of right foot M20.41 and Other viral warts B07.8 [place] [address] [place] [id number] [address] [place] [address] Feb, Bipolar 1 disorder, mixed F3 1.60 [place] [address] [place] [id number] [address] [place] [address] Feb, Bipolar 1 disorder, mixed F3 1.60 [place] [id number] [id number] [address] [place] [address] 05 Feb, 2017 Bipolar 1 disorder, mixed F3 1.60 [place] [address] [id number] [address] [place] [address] 31 Jan, 2017 Encounter for screening mamm ogram for breast cancer Z12.31 ; Other viral warts B07.8 and Allergic rhinitis J30.9 [place] [address] [id number] [address] [place] [address] Jan, Bipolar 1 disorder, mixed F3 1.60 [place] [address] [id number] [address] [place] [address] Jan, Bipolar 1 disorder, mixed F3 1.60 [place] [address] [id number] [address] [place] [address] 14 Jan, 2017 [place] [address] [place] [id number] [address] [place] [address] Jan, Bipolar 1 disorder, mixed F3 1.60 [place] [address] [id number] [address] [place] [address] Jan, Bipolar 1 disorder, mixed F3 1.60 [place] [address] [place] [id number] [address] [place] [address] 02 Jan, 2017 Allergic rhinitis J30.9 ; He maturia R31.9 and Colon cancer screening Z12.11 [place] [address] [id number] [address] [place] [address] Dec, Bipolar 1 disorder, mixed F3 1.60 [place] [address] [id number] [address] [place] [address] 18 Dec, 2016 Bipolar 1 disorder, mixed F3 1.60 ; Generalized anxiety disorder F41.1 and 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 [place] [address] [id number] [address] [place] [address] 17 Dec, 2016 Bipolar 1 disorder, mixed F3 1.60 [place] [address] [id number] [address] [place] [address] Dec, Bipolar 1 disorder, mixed F3 1.60 [facility] [place] [address] [id number] [address] [place] [address] Dec, Bipolar 1 disorder, mixed F3 1.60 [facility] [place] [address] [id number] [address] [place] [address] Dec, Low back pain M54.5 and Recu rrent urinary tract infection N39.0 [facility] [place] [address] [id number] [address] [place] [address] Nov, Bipolar 1 disorder, mixed F3 1.60 [facility] [place] [address] [id number] [address] [place] [address] Nov, Bipolar 1 disorder, mixed F3 1.60 [facility] [place] [address] [place] [id number] [address] [place] [address] Nov, Bipolar 1 disorder, mixed F3 1.60 [facility] [place] [address] [id number] [address] [place] [address] Nov, Bipolar 1 disorder, mixed F3 1.60 [facility] [place] [address] [id number] [address] [place] [address] Nov, [facility] [place] [address] [id number] [address] [place] [address] Nov, Anesthesia of skin R20.0 ; F requent UTI N39.0 ; Tobacco abuse Z72.0 and Colon cancer screening Z12.11 [facility] [place] [address] [id number] [address] [place] [address] Nov, Bipolar 1 disorder, mixed F3 1.60 [facility] [place] [address] [id number] [address] [place] [address] October, Bipolar 1 disorder, mixed F3 1.60 [facility] [place] [address] [id number] [address] [place] [address] October, Bipolar 1 disorder, mixed F3 1.60 [facility] [place] [address] [place] [id number] [address] [place] [address] October, Bipolar 1 disorder, mixed F3 1.60 [facility] [place] [address] [place] [id number] [address] [place] [address] October, Bipolar 1 disorder, mixed F3 1.60 [facility] [place] [address] [place] [id number] [place] [address] October, Bipolar 1 disorder, mixed F3 1.60 [facility] [place] [address] [place] [id number] [address] [place] [address] October, Cervicalgia M54.2 and Bipola r 1 disorder, mixed F31.60 [facility] [place] [address] [place] [id number] [address] [place] [address] October, Hypertension I10 ; Hyperlipi demia, unspecified hyperlipidemia type E78.5 and Family history of thyroid disease Z83.49 [facility] [place] [address] [place] [id number] [address] [place] [address] October, [place] [address] [place] [id number] [place] [address] October, Hypertension I10 ; Hyperlipi demia, unspecified hyperlipidemia type E78.5 and Family history of thyroid problem Z83.49 [facility] [place] [address] [place] [id number] [address] [place] [address] October, Bipolar 1 disorder, mixed F3 1.60 [facility] [place] [address] [place] [id number] [address] [place] [address] Sep, Bipolar 1 disorder, mixed F3 1.60 [facility] [place] [address] [place] [id number] [address] [place] [address] Sep, Bipolar 1 disorder, mixed F3 1.60 [facility] [place] [address] [place] [id number] [address] [place] [address] Sep, Bipolar 1 disorder, mixed F3 1.60 [place] [id number] [place] [id number] [address] [place] [address] Sep, History of colon polyps Z86. 010 and Hematochezia K92.1 [facility] [place] [address] [address] Sep, Major depressive disorder, r ecurrent episode, moderate F33.1 [facility] [place] [address] [address] Sep, Bipolar 1 disorder, mixed F3 1.60 [place] [address] [address] Aug, Hot flashes due to menopause N95.1 [place] [address] [address] Aug, Bipolar 1 disorder, mixed F3 1.60 [place] [address] [address] Aug, [facility] [place] [address] [address] Aug, Bipolar 1 disorder, mixed F3 1.60 [place] [address] [address] Aug, Bipolar 1 disorder, mixed F3 1.60 [place] [address] [address] Aug, Hot flashes due to menopause N95.1 ; Cervicalgia M54.2 and Ataxia R27.0 [facility], [place] [address] [address] Jul, Bipolar 1 disorder, mixed F3 1.60 [place] [address] [address] [place] [id number] [place] [id number] Jul, Bipolar 1 disorder, mixed F3 1.60 [place] [address] [address] Jul, Bipolar 1 disorder, mixed F3 1.60 [place] [address] [address] 13 Jul, 2016 Bipolar 1 disorder, mixed F3 1.60 [place] [address] [address] [place] [id number] 10 Jul, 2016 Bipolar 1 disorder, mixed F3 1.60 [place] [address] [place] [id number] 08 Jul, 2016 Cervicalgia M54.2 ; Tremor R 25.1 ; Hearing abnormally acute, unspecified laterality H93.239 ; Alopecia L65.9 ; Encounter for immunization Z23 and Family history of thyroid disease Z83.49 [place] [address] [address] [place] [id number] 06 Jul, 2016 Bipolar 1 disorder, mixed F3 1.60 [place] [address] [place] [id number] Jun, [place] [address] [place] [id number] Jun, Hearing disorder, unspecifie d laterality H93.299 [place] [address] [place] [id number] Jun, Bipolar 1 disorder, mixed F3 1.60 [place] [address] [address] [place] [id number] Jun, Bipolar 1 disorder, mixed F3 1.60 [place] [address] [address] Jun, Allergic rhinitis J30.9 [place] [address] [place] [id number] Jun, Bipolar 1 disorder, mixed F3 1.60 [place] [address] [address] Jun, Bipolar 1 disorder, mixed F3 1.60 [place] [address] [id number] [address] [place] [id number] Jun, Allergic rhinitis J30.9 [facility], [place] [address] [id number] [address] [place] [address] Jun, Allergic rhinitis J30.9 [facility], [place] [address] [place] [place] [id number] [address] [place] [id number] Jun, Bipolar 1 disorder, mixed F3 1.60 [facility], [place] [address] [id number] [address] [place] [address] May, Bipolar 1 disorder, mixed F3 1.60 [facility], [place] [address] [id number] [address] [place] [address] May, Bipolar 1 disorder, mixed F3 1.60 [facility], [place] [address] [id number] [address] [place] [id number] May, [facility], [place] [address] [id number] [address] [place] [address] May, Bipolar 1 disorder, mixed F3 1.60 [facility], [place] [address] [id number] [address] [place] [address] May, Bipolar 1 disorder, mixed F3 1.60 [facility], [place] [address] [id number] [address] [place] [id number] May, [facility], [place] [address] [address] [id number] [address] [place] [address] May, [facility], [place] [address] [id number] [address] [place] [address] May, [facility] [place] [address] [id number] [address] [place] [address] May, Abdominal pain, unspecified location R10.9 [facility], [place] [address] [id number] [address] [place] [phone] May, [facility] [place] [address] [id number] [address] [place] [address] Apr, Hematuria R31.9 ; Ataxia R27 .0 and Hearing loss, unspecified laterality H91.90 [facility], [place] [address] [id number] Apr, Bipolar 1 disorder, mixed F3 1.60 [facility] [id number] [place] [address] Apr, Acute effusion of both middl e ears H65.193 [facility], [place] [address] [address] Apr, Hematuria R31.9 and Pyelonep hritis N12 [place] [address] [address] Apr, [place] [address] [address] Mar, Bipolar 1 disorder, mixed F3 1.60 [facility], [place] [address] [address] Mar, [facility] [place] [address] [address] Mar, Bipolar 1 disorder, mixed F3 1.60 [place] [address] [address] Mar, Bipolar 1 disorder, mixed F3 1.60 [place] [address] Mar, Encounter for immunization Z 23 and Gastritis without bleeding, unspecified chronicity, unspecified gastritis type K29.70 [facility], [place] [address] [id number] Mar, Bipolar 1 disorder, mixed F3 1.60 and Grief F43.20 [place] [address] [address] Mar, Gastritis without bleeding, unspecified chronicity, unspecified gastritis type K29.70 [facility], [place] [address] [id number] [address] [place] [address] Mar, Bipolar 1 disorder, mixed F3 1.60 [place] [address] [id number] [address] [place] [address] 05 Mar, 2016 Gastritis without bleeding, unspecified chronicity, unspecified gastritis type K29.70 [facility], [place] [address] [id number] [address] [place] [address] Mar, [place] [address] [place] [id number] [place] [address] Feb, Bipolar 1 disorder, mixed F3 1.60 [place] [address] Feb, Bipolar 1 disorder, mixed F3 1.60 and Grief F43.20 [place] [address] [address] Feb, Gastritis without bleeding, unspecified chronicity, unspecified gastritis type K29.70 [place] [address] [address] 14 Feb, 2016 Bipolar 1 disorder, mixed F3 1.60 [facility] [address] [id number] [address] [place] [address] 09 Feb, 2016 Gastroesophageal reflux dise ase, esophagitis presence not specified K21.9 [facility], [place] [address] [id number] [address] [place] [address] Jan, Bipolar 1 disorder, mixed F3 1.60 [facility], [place] [address] [id number] [address] [place] [address] Jan, Bipolar 1 disorder, mixed F3 1.60 and Unsteady gait R26.81 [place] [address] [place] [id number] [address] [place] [address] Jan, Bipolar 1 disorder, mixed F3 1.60 [facility], [place] [address] [id number] [address] [place] [address] Jan, Bipolar 1 disorder, mixed F3 1.60 and Other skilled nursing (current) drug therapy Z79.899 [facility], [place] [address] [id number] [address] [place] [address] Jan, Bipolar 1 disorder, mixed F3 1.60 [facility], [place] [address] [id number] [address] [place] [address] Jan, Bipolar 1 disorder, mixed F3 1.60 [place] [address] [id number] [address] [place] [address] Jan, Bipolar 1 disorder, mixed F3 1.60 ; Grief F43.20 and 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 [place] [id number] [id number] [address] [place] [address] Jan, Bipolar 1 disorder, mixed F3 1.60 [place] [address] [place] [id number] [address] [place] [address] Dec, [place] [address] [place] [id number] [address] [place] [address] Dec, Bipolar 1 disorder, mixed F3 1.60 ; Vitamin D deficiency, unspecified E55.9 ; H/O allergic rhinitis Z87.09 ; Other chronic pain G89.29 and Dorsalgia, unspecified M54.9 [place] [address] [place] [id number] [address] [place] [address] Dec, [place] [address] [place] [id number] [address] [place] [address] Dec, Bipolar 1 disorder, mixed F3 1.60 [place] [address] [place] [id number] [address] [place] [address] Dec, Major depressive disorder, r ecurrent episode, moderate F33.1 [place] [address] [place] [id number] [address] [place] [address] Dec, Major depressive disorder, r ecurrent episode, moderate F33.1 [facility], [place] [address] [id number] [address] [place] [address] Nov, [place] [address] [place] [id number] [address] [place] [address] Nov, Bipolar 1 disorder, mixed F3 1.60 [place] [address] [place] [id number] [address] [place] [address] Nov, Major depressive disorder, r ecurrent episode, moderate F33.1 [place] [address] [id number] [address] [place] [address] Nov, Cervicalgia M54.2 ; Arthralg ia of hip, unspecified laterality M25.559 ; Allergic rhinitis J30.9 and Hormone replacement therapy Z79.890 [facility] [address] [id number] [address] [place] [address] Nov, Other seasonal allergic rhin itis J30.2 [place] [address] [place] [id number] [address] [place] [address] October, Major depressive disorder, r ecurrent episode, moderate F33.1 [place] [address] [place] [id number] [place] [address] October, Major depressive disorder, r ecurrent episode, moderate F33.1 and Arthralgia of hip, unspecified laterality M25.559 [place] [address] [place] [address] October, Grief F43.20 ; Hypertension I10 ; Hyperlipidemia, unspecified hyperlipidemia type E78.5 ; Other chronic pain G89.29 and Allergic rhinitis, unspecified allergic rhinitis type J30.9 [place] [address] [place] [id number] [address] [place] [address] October, Major depressive disorder, r ecurrent episode, moderate F33.1 [place] [address] [id number] [address] [place] [address] Sep, Major depressive disorder, r ecurrent episode, moderate F33.1 [facility], [place] [address] [id number] [address] [place] [address] Sep, [facility], [place] [address] [id number] [address] [place] [address] Sep, Major depressive disorder, r ecurrent episode, moderate F33.1 [facility], [place] [address] [id number] [address] [place] [address] Sep, Grief F43.20 [facility], [place] [address] [id number] [address] [place] [address] Aug, Major depressive disorder, r ecurrent episode, moderate F33.1 [place] [address] [id number] [address] [place] [address] Aug, Bipolar 1 disorder, mixed F3 1.60 [place] [address] [id number] [address] [place] [address] Aug, Allergic rhinitis J30.9 ; Ce rvicalgia M54.2 and Low back pain M54.5 [facility], [place] [address] [id number] [address] [place] [address] Aug, Major depressive disorder, r ecurrent episode, moderate F33.1 [facility] [address] [id number] [address] [place] [address] Aug, Sinusitis J32.9 and Tobacco 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 [facility], [place] [address] [id number] [address] [place] [address] Aug, [facility], [place] [address] [id number] [address] [place] [address] Aug, Depressive disorder, not els ewhere classified F32.9 ; Hormone replacement therapy Z79.[address] scan, head R93.0 [facility], [place] [address] [id number] [address] [place] [address] Aug, Major depressive disorder, r ecurrent episode, moderate F33.1 [place] [id number] [id number] [address] [place] [address] 17 Jul, 2015 Major depressive disorder, r ecurrent episode, moderate F33.1 [facility], [place] [address] [id number] [address] [place] [address] 17 Jul, 2015 Abdominal pain R10.9 and Hyp ertension I10 [facility], [place] [address] [id number] [address] [place] [address] 08 Jul, 2015 [facility], [place] [address] [id number] [address] [place] [address] Jul, Major depressive disorder, r ecurrent episode, moderate F33.1 [facility], [place] [address] [id number] [address] [place] [address] 04 Jul, 2015 [facility], [place] [address] [id number] [address] [place] [address] Jul, [facility], [place] [address] [id number] [address] [place] [address] Jun, [facility], [place] [address] [id number] [place] [address] Jun, Depressive disorder, not els ewhere classified F32.9 [facility], [place] [address] [id number] [address] [place] [address] Jun, [facility], [place] [address] [id number] [address] [place] [address] Jun, [place] [address] [place] [id number] [address] [place] [address] Jun, Arthralgia of hip, unspecifi ed laterality M25.559 ; Bruising, spontaneous R23.3 and Night sweats R61 [facility], [place] [address] [id number] [address] [place] [address] Jun, [facility], [place] [address] [id number] [address] [place] [address] Jun, [facility], [place] [address] [id number] [address] [place] [address] May, [facility], [place] [address] [id number] [address] [place] [address] May, Myalgia M79.1 and Screening, lipid Z13.220 [facility], [place] [address] [id number] [address] [place] [address] Apr, Status post cervical spinal fusion Z98.1 ; Fibromyalgia M79.7 and Unsteady gait R26.81 [facility], [place] [address] [id number] [address] [place] [address] Nov, [facility], [place] [address] [id number] [address] [place] [address] Nov, [facility], [place] [address] [id number] [address] [place] [address] October, [facility], [place] [address] [id number] [address] [place] [address] October, [facility], [place] [address] [id number] [address] [place] [address] October, [facility], [place] [address] [id number] [address] [place] [address] October, [facility], [place] [address] [id number] [address] [place] [address] October, [facility], [place] [address] [id number] [address] [place] [address] October, Dysuria 788.1 ; Nausea 787.0 2 and Urinary tract infection 599.0 [facility], [place] [address] [id number] [address] [place] [address] Sep, [facility], [place] [address] [id number] [address] [place] [address] Sep, [facility], [place] [address] [id number] [address] [place] [address] 25 Aug, 2014 [facility] [address] [id number] [address] [place] [address], [place] [id number] 25 Aug, 2014 [facility] [address] [id number] [address] [place] [address], [place] [address] 24 Aug, 2014 [facility] [address] [id number] [address] [place] [address], [place] [address] 24 Aug, 2014 [facility] [address] [id number] [address] [place] [address], [place] [address] 23 Aug, 2014 [facility] [address] [id number] [address] [place] [address], [place] [address] 19 Aug, 2014 [facility] [address] [id number] [address] [place] [address], [place] [address] 19 Aug, 2014 [facility] [address] [id number] [address] [place] [address], [place] [id number] 19 Aug, 2014 [facility] [address] [id number] [address] [place] [address], [place] [address] 19 Aug, 2014 [facility] [address] [id number] [address] [place] [address], [place] [address] 18 Aug, 2014 [facility] [address] [id number] [address] [place] [address], [place] [id number] 18 Aug, 2014 [facility] [address] [id number] [address] [place] [address], [place] [address] 13 Aug, 2014 [facility] [address] [id number] [address] [place] [address], [place] [id number] 13 Aug, 2014 [facility] [address] [id number] [address] [place] [address], [place] [id number] 11 Aug, 2014 [facility] [address] [id number] [address] [place] [address], [place] [address] 11 Aug, 2014 [facility] [address] [id number] [address] [place] [address], [place] [id number] 06 Aug, 2014 [facility] [address] [id number] [address] [place] [address], [place] [address] Aug, 2014 [facility] [address] [id number] [address] [place] [address], [place] [address] Aug, 2014 [facility] [address] [id number] [address] [place] [address], [place] [id number] Aug, 2014 [facility] [address] [id number] [address] [place] [address], [place] [address] Aug, [facility] [address] [id number] [address] [place] [address], [place] [id number] Aug, [facility] [address] [id number] [address] [place] [address], [place] [address] Aug, [facility] [address] [id number] [address] [place] [address], [place] [id number] Jul, [facility] [address] [id number] [address] [place] [address], [place] [id number] Jul, 2014 [facility] [address] [id number] [address] [place] [address], [place] [address] Jul, [facility] [address] [id number] [address] [place] [address], [place] [address] Jul, [facility] [address] [id number] [address] [place] [address], [place] [id number] Jul, [facility] [address] [id number] [address] [place] [address], [place] [id number] Jul, 2014 [facility] [address] [id number] [address] [place] [address], [place] [address] Jul, 2014 [facility] [address] [id number] [address] [place] [address], [place] [address] Jul, 2014 [facility] [address] [id number] [address] [place] [address], [place] [id number] Jul, 2014 [facility] [address] [id number] [address] [place] [address] Jul, 2014 [facility] [address] [id number] [address] [place] [address], [place] [id number] Jul, 2014 [facility] [address] [id number] [address] [place] [address], [place] [id number] Jul, 2014 [facility] [address] [id number] [address] [place] [address], [place] [address] Jul, 2014 [facility] [address] [id number] [address] [place] [address], [place] [id number] Jul, [facility] [address] [id number] [address] [place] [address], [place] [address] Jun, [facility] [address] [id number] [address] [place] [address], [place] [id number] Jun, [facility] [address] [id number] [address] [place] [address], [place] [id number] Jun, [facility] [address] [id number] [address] [place] [address], [place] [id number] Jun, [facility] [address] [id number] [address] [place] [address], [place] [id number] Jun, [facility] [address] [id number] [address] [place] [address], [place] [id number] Jun, [facility] [address] [id number] [address] [place] [address], [place] [id number] May, [facility] [address] [id number] [address] [place] [address], [place] [id number] May, [facility] [address] [id number] [address] [place] [address], [place] [address] May, [facility] [address] [id number] [address] [place] [address], [place] [id number] May, [facility] [address] [id number] [address] [place] [address], [place] [address] May, [facility] [address] [id number] [address] [place] [address], [place] [address] May, [facility] [address] [id number] [address] [place] [address], [place] [address] Apr, [facility] [address] [id number] [address] [place] [address], [place] [id number] Apr, [facility] [address] [id number] [address] [place] [address], [place] [address] Apr, [facility] [address] [id number] [address] [place] [address], [place] [address] Apr, [facility] [address] [id number] [address] [place] [address], [place] [id number] Apr, [facility] [address] [id number] [address] [place] [address], [place] [id number] Apr, [facility] [address] [id number] [address] [place] [address], [place] [address] Mar, [facility] [address] [id number] [address] [place] [address], [place] [id number] Mar, [facility] [address] [id number] [address] [place] [address], [place] [id number] Mar, [facility] [address] [id number] [address] [place] [address], [place] [id number] Mar, [facility] [address] [id number] [address] [place] [address], [place] [id number] Mar, [facility] [address] [id number] [address] [place] [address], [place] [id number] Mar, [facility] [address] [id number] [address] [place] [address], [place] [id number] Mar, [facility] [address] [id number] [address] [place] [address], [place] [id number] Mar, [facility] [address] [id number] [address] [place] [address], [place] [id number] Mar, [facility] [address] [id number] [address] [place] [address], [place] [id number] Mar, [facility] [address] [id number] [address] [place] [address], [place] [id number] Mar, [facility] [address] [id number] [address] [place] [address], [place] [id number] Mar, [facility] [address] [id number] [address] [place] [address], [place] [id number] 30 Feb, 2014 [facility] [address] [id number] [address] [place] [address], [place] [id number] Feb, [facility] [address] [id number] [address] [place] [address], [place] [id number] Feb, [facility] [address] [id number] [address] [place] [address], [place] [id number] Feb, [facility] [address] [id number] [address] [place] [address], [place] [id number] Feb, [facility] [address] [id number] [address] [place] [address], [place] [id number] Feb, [facility] [address] [id number] [address] [place] [address], [place] [id number] Feb, [facility] [address] [id number] [address] [place] [address], [place] [id number] Jan, [facility] [address] [id number] [address] [place] [address], [place] [id number] Jan, [facility] [address] [id number] [address] [place] [address], [place] [id number] Jan, [facility] [address] [id number] [address] [place] [address], [place] [id number] Dec, [facility] [address] [id number] [address] [place] [address], [place] [id number] Dec, [facility] [address] [id number] [address] [place] [address], [place] [id number] Dec, [facility] [address] [id number] [address] [place] [address], [place] [id number] Dec, [facility] [address] [id number] [address] [place] [address], [place] [id number] Sep, [facility] [address] [id number] [address] [place] [address], [place] [id number] Sep, [facility] [address] [id number] [address] [place] [address], [place] [id number] Sep, [facility] [address] [id number] [address] [place] [address], [place] [id number] Sep, [facility] [address] [id number] [address] [place] [address], [place] [id number] Sep, [facility] [address] [id number] [address] [place] [address], [place] [id number] Sep, [facility] [address] [id number] [address] [place] [address], [place] [id number] Sep, [facility] [address] [id number] [address] [place] [address], [place] [id number] Sep, [facility] [address] [id number] [address] [place] [address], [place] [id number] Aug, [facility] [address] [id number] [address] [place] [address], [place] [id number] Aug, [facility] [address] [id number] [address] [place] [address], [place] [id number] May, [facility] [address] [id number] [address] [place] [address], [place] [id number] May, [facility] [address] [address] [id number] [address] [place] [address], [place] [id number] Apr, [facility] [address] [id number] [address] [place] [address], [place] [id number] Apr, [facility] [address] [id number] [address] [place] [address], [place] [id number] Apr, [facility] [address] [id number] [address] [place] [address], [place] [id number] Apr, [facility] [address] [id number] [address] [place] [address], [place] [id number] Apr, [facility] [address] [id number] [address] [place] [address], [place] [id number] Apr, [facility] [address] [id number] [address] [place] [address], [place] [id number] May, [facility] [address] [id number] [address] [place] [address], [place] [id number] May, [facility] [address] [id number] [address] [place] [address], [place] [id number] May, [facility] [address] [id number] [address] [place] [address], [place] [id number] 15 May, 2012 [facility] [address] [id number] [address] [place] [address], [place] [id number] May, [facility] [address] [id number] [address] [place] [address], [place] [id number] May, [facility] [address] [id number] [address] [place] [address], [place] [id number] Apr, [facility] [address] [id number] [address] [place] [address], [place] [id number] Apr, [facility] [address] [id number] [address] [place] [address], [place] [id number] Apr, [facility] [address] [id number] [address] [place] [address], [place] [id number] Apr, [facility] [address] [id number] [address] [place] [address], [place] [id number] Apr, [facility] [address] [id number] [address] [place] [id number] 08 Apr, 2012 [facility] [address] [id number] [address] [place] [address], [place] [id number] Apr, [facility] [address] [id number] [address] [place] [id number] Apr, [facility] [address] [id number] [address] [place] [id number] Apr, [facility] [address] [id number] [address] [place] [id number] Apr, [facility] [address] [id number] [address] [place] [address], [place] [id number] Mar, [facility] [address] [id number] [address] [place] [id number] Mar, [facility] [address] [id number] [address] [place] [id number] Mar, [facility] [address] [id number] [address] [place] [id number] Mar, [facility] [address] [id number] [address] [place] [phone] Mar, [facility] [address] [id number] [address] [place] [id number] Mar, [facility] [address] [id number] [address] [place] [id number] Mar, [facility] [address] [id number] [address] [place] [id number] Mar, [facility] [address] [id number] [address] [place] [phone] Mar, [facility] [address] [id number] [address] [place] [id number] 25 Feb, 2012 [facility] [address] [id number] [address] [place] [id number] 16 Sep2011 [facility] [address] [id number] [address] [place] [address], [place] [id number] Feb, [facility] [address] [id number] [address] [place] [address], [place] [id number] Jan, [facility] [address] [id number] [address] [place] [address], [place] [id number] Jan, [facility] [address] [id number] [address] [place] [address], [place] [id number] Jan, [facility] [address] [id number] [address] [place] [address], [place] [id number] Jan, [facility] [address] [id number] [address] [place] [address], [place] [id number] Jan, [facility] [address] [id number] [address] [place] [address], [place] [id number] Jan, [facility] [address] [id number] [address] [place] [address], [place] [id number] Jan, [facility] [address] [id number] [address] [place] [address], [place] [id number] Jan, [facility] [address] [id number] [address] [place] [address], [place] [id number] Jan, [facility] [address] [id number] [address] [place] [address], [place] [id number] Jan, [facility] [address] [id number] [address] [place] [address], [place] [id number] Dec, [facility] [address] [id number] [address] [place] [address], [place] [id number] Dec, [facility] [address] [id number] [address] [place] [address], [place] [id number] Dec, [facility] [address] [id number] [address] [place] [address], [place] [id number] Dec, [facility] [address] [id number] [address] [place] [address], [place] [id number] Nov, [facility] [address] [id number] [address] [place] [address], [place] [phone] 08 Nov, 2011 [facility] [address] [id number] [address] [place] [address], [place] [id number] Nov, [facility] [address] [id number] [address] [place] [address], [place] [id number] October, [facility] [address] [id number] [address] [place] [address], [place] [id number] October, [facility] [address] [id number] [address] [place] [address], [place] [id number] October, [facility] [address] [id number] [address] [place] [address], [place] [id number] October, [facility] [address] [id number] [address] [place] [address], [place] [id number] October, [facility] [address] [id number] [address] [place] [address], [place] [id number] October, [facility] [address] [id number] [address] [place] [address], [place] [id number] Aug, [facility] [address] [id number] [address] [place] [address], [place] [id number] Mar, [facility] [address] [id number] [address] [place] [address], [place] [id number] Nov, [facility] [address] [id number] [address] [place] [address], [place] [id number] May, [facility] [address] [id number] [address] [place] [address], [place] [id number] May, [facility] [address] [id number] [address] [place] [address], [place] [id number] Apr, [facility] [address] [id number] [address] [place] [address], [place] [id number] 15 Mar, 2010 [facility] [address] [id number] [address] [place] [address], [place] [address] 15 Mar, 2010 IMMUNIZATIONS No Known Immunizations SOCIAL HISTORY Never Assessed REASON FOR VISIT BH f/u PLAN OF CARE Activity Details Follow Up 1 Week Reason: F/U VITAL SIGNS MEDICATIONS Unknown Medications RESULTS No Results PROCEDURES Procedure Date Ordered Result Body Site [facility] VIS[facility] ESTAB PT October 17, 2017 Psychotherapy, patient &/family, 45 minutes, established patient October 17, 2017 INSTRUCTIONS MEDICATIONS ADMINISTERED No Known [...]
--- OUTSIDE RECORDS SUMMARY | 2019-06-19 05:37 | XMS REPORT ---
Author Author Sydnie HANCOCK [facility] Address [address] [place] [address] Care Team Providers Care Willower Name Role Phone NAHOMY HANCOCK Unavailable PROBLEMS Type Condition ICD9-CM Code DHA24-RY Code Onset Dates Condition S tatus SNOMED Code Problem Hormone replacement therapy Z79.890 Ac tive 055140292 Problem Abnormal CT scan, head R93.0 Active 606501471 Problem Sensorineural hearing loss (SNHL) of both ears H90 .3 Active 789619621 Problem History of colon polyps Z86.010 Active 465212096 Problem Bruising, spontaneous R23.3 Active 142321179 Problem Generalized anxiety disorder F41.1 A ctive 36293378 Problem Arthralgia of hip, unspecified laterality M25.559 Active 41521531 Problem Hematuria, unspecified type R31.9 Ac tive 17274392 Problem Imbalance R26.89 Active 493596937 Problem Hammer toe of right foot M20.41 Activ e 561477485 Problem Plantar wart of right foot B07.0 Act mitchell [id number] Problem Sciatica of left side M54.32 Active 64568790 Problem Hyperlipidemia, unspecified hyperlipidemia type E7 8.5 Active 85429247 Problem Hypertension I10 Active 2140393 3 Problem Night sweats R61 Active 4984520 0 Problem Fibromyalgia M79.7 Active 4352480 7 Problem Major depressive disorder, recurrent episode, moderate F33.1 Active 480086983 Problem Acute left-sided low back pain with left-sided sciatica M54.42 Active 435973693 Problem Bladder spasm N32.89 Active 517714 006 Problem Gastritis without bleeding, unspecified chronicity, unspecified gastritis type K29.70 Active 268860471 Problem Bipolar 1 disorder, mixed F31.60 Acti ve 68521869 Problem Grief F43.20 Active 87646246 Problem Other chronic pain G89.29 Active 8 6115699 Problem Allergic rhinitis J30.9 Active 61 742312 Problem Hot flashes due to menopause N95.1 A ctive 837026692 Problem Ataxia R27.0 Active 60171498 Problem Hearing loss, unspecified laterality H91.90 Active 10783224 ALLERGIES Substance Reaction Event Type Date Status Morphine Sulfate Unknown Drug Allergy October, Active Iodine Unknown Drug Allergy October, Active Lyrica 75 Mg Capsule "felt weird" Non Drug Allergy October, Act mitchell ENCOUNTERS Encounter Location Date Diagnosis [facility] [address] [facility] [id number] [address] [place] [address] Mar, [facility] [address] [facility] [id number] [address] [place] [address] Jan, [facility] [address] [place] [id number] [address] [place] [address] Jan, [facility] [address] [place] [id number] [address] [place] [address] Jan, [facility] [address] [place] [id number] [address] [place] [address] Jan, [facility] [address] [place] [id number] [address] [place] [address] Jan, Bipolar 1 disorder, mixed F3 1.60 [facility] [address] [place] [id number] [address] [place] [address] Dec, Bipolar 1 disorder, mixed F3 1.60 ; Generalized anxiety disorder F41.1 and Other assisted (current) drug therapy Z79.899 [facility] [address] [facility] [id number] [address] [place] [address] Dec, 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 [facility] [address] [facility] [id number] [address] [place] [address] Dec, Bipolar 1 disorder, mixed F3 1.60 [facility] [address] [facility] [id number] [address] [place] [address] Dec, Bipolar 1 disorder, mixed F3 1.60 [facility] [address] [place] [id number] [place] [address] Nov, Bipolar 1 disorder, mixed F3 1.60 [facility] [address] [address] Nov, Bipolar 1 disorder, mixed F3 1.60 [place] [address] [address] Nov, Bipolar 1 disorder, mixed F3 1.60 [facility] [address] [place] [id number] [place] [address] Nov, Allergic rhinitis J30.9 [place] [address] [address] Nov, Allergic rhinitis J30.9 [place] [address] [address] Nov, [facility] [address] [address] Nov, Bipolar 1 disorder, mixed F3 1.60 [place] [address] [address] Nov, Fibromyalgia M79.7 and Aller gic rhinitis J30.9 [facility] [address] [address] October, Bipolar 1 disorder, mixed F3 1.60 [facility] [address] [address] October, Acute nasopharyngitis J00 [facility] [address] [address] October, Bitten or stung by nonvenomo us insect and other nonvenomous arthropods, initial encounter W57.XXXA and Insect bite (nonvenomous) of abdominal wall, initial encounter S30.861A [place] [address] [place] [id number] [place] [address] October, Insect bite (nonvenomous) of abdominal wall, initial encounter S30.861A ; Bitten or stung by nonvenomous insect and other nonvenomous arthropods, initial encounter W57.XXXA ; Allergic rhinitis J30.9 and Low back pain M54.5 [facility] [address] [facility] [id number] [address] [place] [address] October, Bipolar 1 disorder, mixed F3 1.60 [facility] [address] [id number] [address] [place] [address] October, [facility] [address] [facility] [id number] [address] [place] [address] October, [facility] [address] [facility] [id number] [address] [place] [address] October, Bipolar 1 disorder, mixed F3 1.60 [facility] [address] [facility] [id number] [address] [place] [address] Sep, Bipolar 1 disorder, mixed F3 1.60 [facility] [address] [id number] [address] [place] [address] Sep, Other chronic pain G89.29 [facility] [address] [facility] [id number] [address] [place] [address] Sep, [facility] [address] [facility] [id number] [address] [place] [address] Sep, Bipolar 1 disorder, mixed F3 1.60 [facility] [address] [id number] [address] [place] [address] Sep, Allergic rhinitis J30.9 and Sciatica of left side M54.32 [facility] [address] [facility] [id number] [address] [place] [address] Sep, Bipolar 1 disorder, mixed F3 1.60 [facility] [address] [facility] [id number] [address] [place] [address] Sep, Bipolar 1 disorder, mixed F3 1.60 and Generalized anxiety disorder F41.1 [facility] [address] [id number] [address] [place] [address] Aug, [facility] [address] [facility] [id number] [address] [place] [address] Aug, Bipolar 1 disorder, mixed F3 1.60 [facility] [address] [facility] [id number] [address] [place] [phone] Aug, Bipolar 1 disorder, mixed F3 1.60 [facility] [address] [id number] [address] [place] [phone] Aug, [facility] [address] [facility] [id number] [address] [place] [phone] Aug, Generalized anxiety disorder F41.1 [facility] [address] [facility] [id number] [address] [place] [address] Aug, Bipolar 1 disorder, mixed F3 1.60 [facility] [address] [facility] [id number] [address] [place] [address] Aug, Plantar wart of right foot B 07.0 [facility] [address] [facility] [id number] [address] [place] [address] Aug, Bipolar 1 disorder, mixed F3 1.60 [facility] [address] [facility] [id number] [address] [place] [address] Jul, Bipolar 1 disorder, mixed F3 1.60 [facility] [address] [facility] [id number] [address] [place] [address] Jul, [facility] [address] [facility] [id number] [address] [place] [address] Jul, Bipolar 1 disorder, mixed F3 1.60 [facility] [address] [facility] [id number] [address] [place] [address] 09 Jul, 2017 Generalized anxiety disorder F41.1 [facility] [address] [facility] [id number] [address] [place] [address] 07 Jul, 2017 Bipolar 1 disorder, mixed F3 1.60 [place] [id number] [place] [id number] [address] [place] [address] 07 Jul, 2017 Acute left-sided low back pa in with left-sided sciatica M54.42 [place] [address] [place] [id number] [address] [place] [address] 05 Jul, 2017 Coccydynia M53.3 [place] [address] [place] [id number] [place] [address] Jun, Bipolar 1 disorder, mixed F3 1.60 [facility] [address] [address] Jun, Acute nasopharyngitis J00 [place] [address] [address] Jun, Bipolar 1 disorder, mixed F3 1.60 [place] [address] [address] Jun, Fibromyalgia M79.7 [place] [address] [address] Jun, Bipolar 1 disorder, mixed F3 1.60 [place] [address] [address] Jun, Fibromyalgia M79.7 and Bipol ar 1 disorder, mixed F31.60 [place] [address] [place] [id number] [address] [place] [address] May, Bipolar 1 disorder, mixed F3 1.60 ; Generalized anxiety disorder F41.1 and Other assisted (current) drug therapy Z79.899 [place] [address] [place] [id number] [address] [place] [address] May, Bipolar 1 disorder, mixed F3 1.60 [facility] [address] [place] [id number] [address] [place] [address] May, Cough R05 and Body aches R52 [facility] [address] [address] 10 May, 2017 Bladder spasm N32.89 and Acu te cystitis without hematuria N30.00 [facility] [address] [id number] 07 May, 2017 Bipolar 1 disorder, mixed F3 1.60 [facility] [address] [address] 30 Apr, 2017 [place] [address] [address] Apr, Major depressive disorder, r ecurrent episode, moderate F33.1 and Encounter for immunization Z23 [facility] [address] [address] Apr, Bipolar 1 disorder, mixed F3 1.60 [place] [address] [address] Apr, Bipolar 1 disorder, mixed F3 1.60 [place] [address] [address] 16 Apr, 2017 Bipolar 1 disorder, mixed F3 1.60 [facility] [address] [address] Apr, Yeast vaginitis B37.3 [place] [address] [address] 09 Apr, 2017 Bipolar 1 disorder, mixed F3 1.60 [facility] [address] [id number] 07 Apr, 2017 Encounter for immunization Z 23 and Cellulitis L03.90 [facility] [address] [address] Apr, Bipolar 1 disorder, mixed F3 1.60 [place] [address] [address] Mar, Bipolar 1 disorder, mixed F3 1.60 [place] [address] [place] [id number] [address] [place] [id number] Mar, Bipolar 1 disorder, mixed F3 1.60 [place] [address] [place] [id number] [address] [place] [id number] Mar, Imbalance R26.89 and Encount er for immunization Z23 [place] [address] [place] [id number] [address] [place] [address] Mar, Generalized anxiety disorder F41.1 [place] [address] Mar, Bipolar 1 disorder, mixed F3 1.60 [place] [address] [place] [id number] [address] [place] [address] Mar, Generalized anxiety disorder F41.1 [place] [address] [place] [id number] [address] [place] [address] Mar, Bipolar 1 disorder, mixed F3 1.60 [place] [address] [place] [id number] [address] [place] [phone] Mar, Bipolar 1 disorder, mixed F3 1.60 [place] [address] [place] [id number] [address] [place] [address] Feb, Bipolar 1 disorder, mixed F3 1.60 [place] [address] [place] [id number] [address] [place] [address] Feb, Bipolar 1 disorder, mixed F3 1.60 and Generalized anxiety disorder F41.1 [place] [address] [place] [id number] [address] [place] [address] Feb, Gastritis without bleeding, unspecified chronicity, unspecified gastritis type K29.70 ; Hammer toe of right foot M20.41 and Other viral warts B07.8 [place] [address] [place] [id number] [address] [place] [address] Feb, Bipolar 1 disorder, mixed F3 1.60 [facility] [address] [id number] [address] [place] [id number] 13 Feb, 2017 Bipolar 1 disorder, mixed F3 1.60 [facility] [address] [facility] [id number] [address] [place] [phone] 05 Feb, 2017 Bipolar 1 disorder, mixed F3 1.60 [facility] [address] [facility] [id number] [address] [place] [address] Jan, Encounter for screening mamm ogram for breast cancer Z12.31 ; Other viral warts B07.8 and Allergic rhinitis J30.9 [facility] [address] [id number] [address] [place] [address] Jan, Bipolar 1 disorder, mixed F3 1.60 [facility] [address] [facility] [id number] [address] [place] [phone] Jan, Bipolar 1 disorder, mixed F3 1.60 [facility] [address] [facility] [id number] [address] [place] [phone] 14 Jan, 2017 [facility] [address] [facility] [id number] [address] [place] [id number] Jan, Bipolar 1 disorder, mixed F3 1.60 [facility] [address] [facility] [id number] [address] [place] [address] 04 Jan, 2017 Bipolar 1 disorder, mixed F3 1.60 [facility] [address] [facility] [id number] [address] [place] [address] Jan, Allergic rhinitis J30.9 ; He maturia R31.9 and Colon cancer screening Z12.11 [facility] [address] [facility] [id number] [address] [place] [address] Dec, Bipolar 1 disorder, mixed F3 1.60 [facility] [address] [facility] [id number] [address] [place] [phone] 18 Dec, 2016 Bipolar 1 disorder, mixed F3 1.60 ; Generalized anxiety disorder F41.1 and 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 [facility] [address] [facility] [id number] [address] [place] [address] Dec, Bipolar 1 disorder, mixed F3 1.60 [facility] [address] [facility] [id number] [address] [place] [address] Dec, Bipolar 1 disorder, mixed F3 1.60 [facility] [address] [place] [id number] [address] [place] [address] Dec, Bipolar 1 disorder, mixed F3 1.60 [facility] [address] [facility] [id number] [address] [place] [address] Dec, Low back pain M54.5 and Recu rrent urinary tract infection N39.0 [place] [address] [facility] [id number] [address] [place] [phone] Nov, Bipolar 1 disorder, mixed F3 1.60 [place] [address] [place] [id number] [address] [place] [phone] Nov, Bipolar 1 disorder, mixed F3 1.60 [place] [address] [place] [id number] [address] [place] [address] Nov, Bipolar 1 disorder, mixed F3 1.60 [place] [address] [place] [id number] [address] [place] [phone] Nov, Bipolar 1 disorder, mixed F3 1.60 [place] [address] [place] [id number] [address] [place] [address] Nov, [facility] [address] [place] [id number] [place] [address] Nov, Anesthesia of skin R20.0 ; F requent UTI N39.0 ; Tobacco abuse Z72.0 and Colon cancer screening Z12.11 [facility] [address] [facility] [id number] [address] [place] [address] Nov, Bipolar 1 disorder, mixed F3 1.60 [place] [address] [place] [id number] [address] [place] [address] October, Bipolar 1 disorder, mixed F3 1.60 [facility] [address] [facility] [id number] [address] [place] [address] October, Bipolar 1 disorder, mixed F3 1.60 [facility] [address] [facility] [id number] [address] [place] [address] October, Bipolar 1 disorder, mixed F3 1.60 [facility] [address] [place] [id number] [place] [address] October, Bipolar 1 disorder, mixed F3 1.60 [facility] [address] [place] [id number] [address] [place] [address] October, Bipolar 1 disorder, mixed F3 1.60 [place] [address] [place] [id number] [address] [place] [address] October, Cervicalgia M54.2 and Bipola r 1 disorder, mixed F31.60 [place] [address] [place] [id number] [address] [place] [address] October, Hypertension I10 ; Hyperlipi demia, unspecified hyperlipidemia type E78.5 and Family history of thyroid disease Z83.49 [place] [address] [place] [id number] [address] [place] [address] October, [place] [address] [place] [id number] [address] [place] [address] October, Hypertension I10 ; Hyperlipi demia, unspecified hyperlipidemia type E78.5 and Family history of thyroid problem Z83.49 [place] [address] [place] [id number] [address] [place] [address] October, Bipolar 1 disorder, mixed F3 1.60 [place] [address] [place] [id number] [address] [place], [place] [phone] Sep, Bipolar 1 disorder, mixed F3 1.60 [facility] [address] [place] [id number] [address] [place] [address] Sep, Bipolar 1 disorder, mixed F3 1.60 [facility] [address] [place] [id number] [address] [place] [address] Sep, Bipolar 1 disorder, mixed F3 1.60 [facility] [address] [place] [id number] [place], [place] [address] Sep, History of colon polyps Z86. 010 and Hematochezia K92.1 [facility] [address] [place] [address] Sep, Major depressive disorder, r ecurrent episode, moderate F33.1 [facility] [address] [place] [id number] [address] [place] [address] Sep, Bipolar 1 disorder, mixed F3 1.60 [place] [address] [place] [id number] [address] [place] [address] Aug, Hot flashes due to menopause N95.1 [place] [address] [place] [id number] [place] [address] Aug, Bipolar 1 disorder, mixed F3 1.60 [facility] [address] [place] [id number] [address] [place] [phone] Aug, [facility] [address] [place] [id number] [place] [address] Aug, Bipolar 1 disorder, mixed F3 1.60 [place] [address] [place] [id number] [address] [place] [address] Aug, Bipolar 1 disorder, mixed F3 1.60 [facility] [address] [place] [id number] [address] [place] [address] Aug, Hot flashes due to menopause N95.1 ; Cervicalgia M54.2 and Ataxia R27.0 [facility] [address] [place] [id number] [address] [place] [address] Jul, Bipolar 1 disorder, mixed F3 1.60 [facility] [address] [place] [id number] [address] [place] [address] Jul, Bipolar 1 disorder, mixed F3 1.60 [place] [address] Jul, Bipolar 1 disorder, mixed F3 1.60 [place] [address] Jul, Bipolar 1 disorder, mixed F3 1.60 [place] [address] [place] [address] Jul, Bipolar 1 disorder, mixed F3 1.60 [place] [address] 08 Jul, 2016 Cervicalgia M54.2 ; Tremor R 25.1 ; Hearing abnormally acute, unspecified laterality H93.239 ; Alopecia L65.9 ; Encounter for immunization Z23 and Family history of thyroid disease Z83.49 [place] [address] [place] [address] Jul, Bipolar 1 disorder, mixed F3 1.60 [place] [address] [address] Jun, [place] [address] [place] [address] Jun, Hearing disorder, unspecifie d laterality H93.299 [place] [address] [place] [address] Jun, Bipolar 1 disorder, mixed F3 1.60 [place] [address] [address] Jun, Bipolar 1 disorder, mixed F3 1.60 [place] [address] Jun, Allergic rhinitis J30.9 [place] [address] [address] Jun, Bipolar 1 disorder, mixed F3 1.60 [facility] [address] [id number] [address] [place] [address] Jun, Bipolar 1 disorder, mixed F3 1.60 [facility] [address] [id number] [address] [place] [address] Jun, Allergic rhinitis J30.9 [facility] [address] [id number] [address] [place] [address] Jun, Allergic rhinitis J30.9 [facility] [address] [id number] [address] [place] [phone] Jun, Bipolar 1 disorder, mixed F3 1.60 [facility] [address] [id number] [address] [place] [address] May, Bipolar 1 disorder, mixed F3 1.60 [facility] [address] [id number] [address] [place] [address] May, Bipolar 1 disorder, mixed F3 1.60 [facility] [address] [id number] [address] [place] [id number] May, [facility] [address] [id number] [address] [place] [phone] May, Bipolar 1 disorder, mixed F3 1.60 [facility] [address] [id number] [address] [place] [id number] May, Bipolar 1 disorder, mixed F3 1.60 [facility] [address] [id number] [address] [place] [phone] May, [facility] [address] [id number] [address] [place] [phone] May, [facility] [address] [id number] [address] [place] [id number] May, [facility] [address] [id number] [address] [place] [id number] May, Abdominal pain, unspecified location R10.9 [facility] [address] [id number] May, [facility] [address] [id number] Apr, Hematuria R31.9 ; Ataxia R27 .0 and Hearing loss, unspecified laterality H91.90 [facility] [address] [id number] Apr, Bipolar 1 disorder, mixed F3 1.60 [facility] [address] [id number] Apr, Acute effusion of both middl e ears H65.193 [place] [address] [id number] Apr, Hematuria R31.9 and Pyelonep hritis N12 [place] [address] [id number] Apr, [place] [address] [id number] Mar, Bipolar 1 disorder, mixed F3 1.60 [place] [address] [id number] Mar, [place] [address] [id number] Mar, Bipolar 1 disorder, mixed F3 1.60 [place] [address] [id number] Mar, Bipolar 1 disorder, mixed F3 1.60 [place] [address] [id number] Mar, Encounter for immunization Z 23 and Gastritis without bleeding, unspecified chronicity, unspecified gastritis type K29.70 [facility] [address] [place] [id number] [address] [place] [phone] 05 Mar, 2016 Bipolar 1 disorder, mixed F3 1.60 and Grief F43.20 [place] [address] [address] [place] [id number] [address] [place], [place] [address] 05 Mar, 2016 Gastritis without bleeding, unspecified chronicity, unspecified gastritis type K29.70 [place] [address] [address] [place] [id number] [address] [place], [place] [address] Mar, Bipolar 1 disorder, mixed F3 1.60 [place] [address] [place], [place] [id number] Mar, Gastritis without bleeding, unspecified chronicity, unspecified gastritis type K29.70 [place] [address] [address] [place] [id number] [address] [place] [id number] Mar, [place] [address] [place] [id number] [place] [id number] Feb, Bipolar 1 disorder, mixed F3 1.60 [place] [address] [place] [id number] Feb, Bipolar 1 disorder, mixed F3 1.60 and Grief F43.20 [place] [address] [place] [id number] [place] [id number] Feb, Gastritis without bleeding, unspecified chronicity, unspecified gastritis type K29.70 [place] [address] [address] [place] [id number] [address] [place] [address] 14 Feb, 2016 Bipolar 1 disorder, mixed F3 1.60 [facility] [address] [place] [id number] [address] [place] [address] Feb, Gastroesophageal reflux dise ase, esophagitis presence not specified K21.9 [place] [address] [address] [place] [id number] [address] [place] [address] Jan, Bipolar 1 disorder, mixed F3 1.60 [place] [address] [place] [id number] [address] [place], [place] [id number] Jan, Bipolar 1 disorder, mixed F3 1.60 and Unsteady gait R26.81 [place] [address] [place] [id number] [place] [address] Jan, Bipolar 1 disorder, mixed F3 1.60 [facility] [address] [place] [id number] [address] [place] [address] Jan, Bipolar 1 disorder, mixed F3 1.60 and Other assisted (current) drug therapy Z79.899 [facility] [address] [place] [id number] [place] [address] Jan, Bipolar 1 disorder, mixed F3 1.60 [facility] [address] [place] [id number] [place] [address] Jan, Bipolar 1 disorder, mixed F3 1.60 [place] [address] [address] Jan, Bipolar 1 disorder, mixed F3 1.60 ; Grief F43.20 and 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 [place] [address] [address] Jan, Bipolar 1 disorder, mixed F3 1.60 [place] [address] [address] Dec, [facility] [address] [address] Dec, Bipolar 1 disorder, mixed F3 1.60 ; Vitamin D deficiency, unspecified E55.9 ; H/O allergic rhinitis Z87.09 ; Other chronic pain G89.29 and Dorsalgia, unspecified M54.9 [facility] [address] [place] [id number] [address] [place] [address] Dec, [facility] [address] [address] Dec, Bipolar 1 disorder, mixed F3 1.60 [facility] [address] [place] [id number] [address] [place] [address] Dec, Major depressive disorder, r ecurrent episode, moderate F33.1 [place] [address] [facility] [id number] [address] [place] [address] Dec, Major depressive disorder, r ecurrent episode, moderate F33.1 [facility] [address] [facility] [id number] [address] [place] [address] Nov, [facility] [address] [facility] [id number] [address] [place] [address] Nov, Bipolar 1 disorder, mixed F3 1.60 [place] [address] [address] [facility] [id number] [address] [place] [address] Nov, Major depressive disorder, r ecurrent episode, moderate F33.1 [place] [address] [address] [facility] [id number] [address] [place] [address] Nov, Cervicalgia M54.2 ; Arthralg ia of hip, unspecified laterality M25.559 ; Allergic rhinitis J30.9 and Hormone replacement therapy Z79.890 [facility] [address] [place] [id number] [address] [place] [address] Nov, Other seasonal allergic rhin itis J30.2 [place] [address] [address] [place] [id number] [address] [place] [address] October, Major depressive disorder, r ecurrent episode, moderate F33.1 [place] [address] [address] [facility] [id number] [address] [place] [address] October, Major depressive disorder, r ecurrent episode, moderate F33.1 and Arthralgia of hip, unspecified laterality M25.559 [place] [address] [address] [facility] [id number] [address] [place] [address] October, Grief F43.20 ; Hypertension I10 ; Hyperlipidemia, unspecified hyperlipidemia type E78.5 ; Other chronic pain G89.29 and Allergic rhinitis, unspecified allergic rhinitis type J30.9 [facility] [address] [facility] [id number] [address] [place] [address] October, Major depressive disorder, r ecurrent episode, moderate F33.1 [facility] [address] [facility] [id number] [address] [place] [address] Sep, Major depressive disorder, r ecurrent episode, moderate F33.1 [facility] [address] [facility] [id number] [address] [place] [address] Sep, [facility] [address] [facility] [id number] [address] [place] [address] Sep, Major depressive disorder, r ecurrent episode, moderate F33.1 [facility] [address] [facility] [id number] [address] [place] [address] Sep, Grief F43.20 [place] [address] [address] [facility] [id number] [address] [place] [address] Aug, Major depressive disorder, r ecurrent episode, moderate F33.1 [place] [address] [place] [id number] [address] [place] [address] Aug, Bipolar 1 disorder, mixed F3 1.60 [facility] [address] [facility] [id number] [address] [place] [address] Aug, Allergic rhinitis J30.9 ; Ce rvicalgia M54.2 and Low back pain M54.5 [facility] [address] [facility] [id number] [address] [place] [address] Aug, Major depressive disorder, r ecurrent episode, moderate F33.1 [facility] [address] [facility] [id number] [address] [place] [address] Aug, Sinusitis J32.9 and Tobacco 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 [facility] [address] [facility] [id number] [address] [place] [address] Aug, [facility] [address] [facility] [id number] [address] [place] [address] Aug, Depressive disorder, not els ewhere classified F32.9 ; Hormone replacement therapy Z79.[address] scan, head R93.0 [place] [address] [id number] [address] [place] [address] 08 Aug, 2015 Major depressive disorder, r ecurrent episode, moderate F33.1 [facility] [address] [facility] [id number] [address] [place] [address] Jul, Major depressive disorder, r ecurrent episode, moderate F33.1 [facility] [address] [facility] [id number] [address] [place] [address] Jul, Abdominal pain R10.9 and Hyp ertension I10 [facility] [address] [facility] [id number] [address] [place] [address] Jul, [facility] [address] [facility] [id number] [address] [place] [address] Jul, Major depressive disorder, r ecurrent episode, moderate F33.1 [facility] [address] [facility] [id number] [address] [place] [address] Jul, [facility] [address] [facility] [id number] [address] [place] [address] Jul, [facility] [address] [facility] [id number] [address] [place] [address] Jun, [facility] [address] [place] [id number] [address] [place] [address] Jun, Depressive disorder, not els ewhere classified F32.9 [facility] [address] [facility] [id number] [address] [place] [address] Jun, [facility] [address] [facility] [id number] [address] [place] [address] Jun, [facility] [address] [facility] [id number] [address] [place] [address] Jun, Arthralgia of hip, unspecifi ed laterality M25.559 ; Bruising, spontaneous R23.3 and Night sweats R61 [facility] [address] [facility] [id number] [address] [place] [address] Jun, [facility] [address] [id number] [address] [place] [address] Jun, [facility] [address] [facility] [id number] [address] [place] [address] May, [facility] [address] [facility] [id number] [address] [place] [address] May, Myalgia M79.1 and Screening, lipid Z13.220 [facility] [address] [facility] [id number] [address] [place] [address] Apr, Status post cervical spinal fusion Z98.1 ; Fibromyalgia M79.7 and Unsteady gait R26.81 [facility] [address] [id number] [address] [place] [address] Nov, [facility] [address] [facility] [id number] [address] [place] [address] Nov, [facility] [address] [id number] [address] [place] [address] October, [facility] [address] [facility] [id number] [address] [place] [address] October, [facility] [address] [facility] [id number] [address] [place] [address] October, [facility] [address] [facility] [id number] [address] [place] [address] October, [facility] [address] [id number] [address] [place] [address] October, [facility] [address] [facility] [id number] [address] [place] [address] October, Dysuria 788.1 ; Nausea 787.0 2 and Urinary tract infection 599.0 [facility] [address] [id number] [address] [place] [address] Sep, [facility] [place] [facility] [address] [id number] [facility] [place] [address] 13 Sep, 2014 [facility] [address] [id number] [address] [place] [address], [place] [address] 25 Aug, 2014 [facility] [address] [id number] [address] [place] [address], [place] [address] 25 Aug, 2014 [facility] [address] [id number] [address] [place] [address], [place] [address] 24 Aug, 2014 [facility] [address] [id number] [address] [place] [address], [place] [address] 24 Aug, 2014 [facility] [address] [id number] [address] [place] [address], [place] [address] 23 Aug, 2014 [facility] [address] [id number] [address] [place] [address], [place] [address] 19 Aug, 2014 [facility] [address] [id number] [address] [place] [address], [place] [address] 19 Aug, 2014 [facility] [address] [id number] [address] [place] [address], [place] [address] 19 Aug, 2014 [facility] [address] [id number] [address] [place] [address], [place] [address] 19 Aug, 2014 [facility] [address] [id number] [address] [place] [address], [place] [address] 18 Aug, 2014 [facility] [address] [id number] [address] [place] [address], [place] [address] 18 Aug, 2014 [facility] [address] [id number] [address] [place] [address], [place] [address] 13 Aug, 2014 [facility] [address] [id number] [address] [place] [address], [place] [address] 13 Aug, 2014 [facility] [address] [id number] [address] [place] [address], [place] [address] 11 Aug, 2014 [facility] [address] [id number] [address] [place] [address], [place] [address] Aug, [facility] [address] [id number] [address] [place] [address], [place] [address] Aug, [facility] [place] [facility] [address] [id number] [address] [place] [address], [place] [address] Aug, [facility] [place] [facility] [address] [id number] [address] [place] [address], [place] [address] Aug, 2014 [facility] [place] [facility] [address] [id number] [address] [place] [address], [place] [address] Aug, 2014 [facility] [place] [facility] [address] [id number] [address] [place] [address], [place] [address] Aug, [facility] [place] [facility] [address] [id number] [address] [place] [address], [place] [address] Aug, [facility] [place] [facility] [address] [id number] [address] [place] [address], [place] [address] Aug, [facility] [place] [facility] [address] [id number] [address] [place] [address], [place] [address] Jul, 2014 [facility] [place] [facility] [address] [id number] [address] [place] [address], [place] [address] Jul, [facility] [place] [facility] [address] [id number] [address] [place] [address], [place] [address] Jul, [facility] [place] [facility] [address] [id number] [address] [place] [address], [place] [address] Jul, 2014 [facility] [place] [facility] [address] [id number] [address] [place] [address], [place] [address] Jul, 2014 [facility] [place] [facility] [address] [id number] [address] [place] [address], [place] [address] Jul, 2014 [facility] [place] [facility] [address] [id number] [address] [place] [address], [place] [address] Jul, 2014 [facility] [place] [facility] [address] [id number] [address] [place] [address], [place] [address] Jul, 2014 [facility] [place] [facility] [address] [id number] [address] [place] [address], [place] [address] Jul, 2014 [facility] [address] [id number] [address] [place] [address], [place] [address] Jul, 2014 [facility] [address] [id number] [address] [place] [address], [place] [address] Jul, 2014 [facility] [address] [id number] [address] [place] [address], [place] [address] Jul, 2014 [facility] [address] [id number] [address] [place] [address], [place] [address] Jul, [facility] [address] [id number] [address] [place] [address], [place] [address] Jul, [facility] [address] [id number] [address] [place] [address], [place] [address] Jun, [facility] [address] [id number] [address] [place] [address], [place] [address] Jun, [facility] [address] [id number] [address] [place] [address], [place] [address] Jun, [facility] [address] [id number] [address] [place] [address], [place] [address] Jun, [facility] [address] [id number] [address] [place] [address], [place] [address] Jun, [facility] [address] [id number] [address] [place] [address], [place] [address] Jun, [facility] [address] [id number] [address] [place] [address], [place] [address] May, [facility] [place] [facility] [address] [id number] [address] [place] [address], [place] [address] May, [facility] [place] [facility] [address] [id number] [address] [place] [address], [place] [address] May, [facility] [place] [facility] [address] [id number] [address] [place] [address], [place] [address] May, [facility] [place] [facility] [address] [id number] [address] [place] [address], [place] [address] May, [facility] [place] [facility] [address] [id number] [address] [place] [address], [place] [address] May, [facility] [place] [facility] [address] [id number] [address] [place] [address], [place] [address] Apr, [facility] [place] [facility] [address] [id number] [address] [place] [address], [place] [address] Apr, [facility] [place] [facility] [address] [id number] [address] [place] [address], [place] [address] Apr, [facility] [place] [facility] [address] [id number] [address] [place] [address], [place] [address] Apr, [facility] [place] [facility] [address] [id number] [address] [place] [address], [place] [address] Apr, [facility] [place] [facility] [address] [id number] [address] [place] [address], [place] [address] Apr, [facility] [place] [facility] [address] [id number] [address] [place] [address], [place] [address] Mar, [facility] [place] [facility] [address] [id number] [address] [place] [address], [place] [address] Mar, [facility] [place] [facility] [address] [id number] [address] [place] [address] Mar, [facility] [place] [facility] [address] [id number] [address] [place] [address] Mar, [facility] [place] [facility] [address] [id number] [address] [place] [address], [place] [address] Mar, [facility] [place] [facility] [address] [id number] [address] [place] [address] Mar, [facility] [place] [facility] [address] [id number] [address] [place] [address] Mar, [facility] [place] [facility] [address] [id number] [address] [place] [address], [place] [address] Mar, [facility] [address] [id number] [address] [place] [address], [place] [address] Mar, [facility] [address] [id number] [address] [place] [address], [place] [address] Mar, [facility] [address] [id number] [address] [place] [address], [place] [address] Mar, [facility] [address] [id number] [address] [place] [address], [place] [address] Mar, [facility] [address] [id number] [address] [place] [address], [place] [address] 30 Feb, 2014 [facility] [address] [id number] [address] [place] [address], [place] [address] 29 Feb, 2014 [facility] [address] [id number] [address] [place] [address], [place] [address] 29 Feb, 2014 [facility] [address] [id number] [address] [place] [address], [place] [address] 23 Feb, 2014 [facility] [address] [id number] [address] [place] [address], [place] [address] 23 Feb, 2014 [facility] [address] [id number] [address] [place] [address], [place] [address] 08 Feb, 2014 [facility] [address] [id number] [address] [place] [address], [place] [address] 08 Feb, 2014 [facility] [address] [id number] [address] [place] [address], [place] [address] Jan, [facility] [address] [id number] [address] [place] [address], [place] [address] Jan, [facility] [address] [id number] [address] [place] [address], [place] [address] Jan, [facility] [address] [id number] [address] [place] [address], [place] [address] Dec, [facility] [place] [facility] [address] [id number] [address] [place] [address], [place] [address] Dec, [facility] [address] [id number] [address] [place] [address], [place] [address] Dec, [facility] [address] [id number] [address] [place] [address], [place] [address] Dec, [facility] [address] [id number] [address] [place] [address], [place] [address] Sep, [facility] [address] [id number] [address] [place] [address], [place] [address] Sep, [facility] [address] [id number] [address] [place] [address], [place] [address] Sep, [facility] [address] [id number] [address] [place] [address], [place] [address] Sep, [facility] [address] [id number] [address] [place] [address], [place] [address] Sep, [facility] [address] [id number] [address] [place] [address], [place] [address] Sep, [facility] [address] [id number] [address] [place] [address], [place] [address] Sep, [facility] [address] [id number] [address] [place] [address], [place] [address] Sep, [facility] [address] [id number] [address] [place] [address], [place] [address] Aug, [facility] [address] [id number] [address] [place] [address], [place] [address] Aug, [facility] [address] [id number] [address] [place] [address], [place] [address] May, [facility] [address] [id number] [address] [place] [address], [place] [address] May, [facility] [address] [id number] [address] [place] [address], [place] [address] Apr, [facility] [address] [id number] [address] [place] [address], [place] [address] Apr, [facility] [address] [id number] [address] [place] [address], [place] [address] Apr, [facility] [address] [id number] [address] [place] [address], [place] [address] Apr, [facility] [address] [id number] [address] [place] [address], [place] [address] Apr, [facility] [address] [id number] [address] [place] [address], [place] [address] Apr, [facility] [address] [id number] [address] [place] [address], [place] [address] May, [facility] [address] [id number] [address] [place] [address], [place] [address] May, [facility] [address] [id number] [address] [place] [address], [place] [address] May, [facility] [address] [id number] [address] [place] [address], [place] [address] May, [facility] [address] [id number] [address] [place] [address], [place] [address] May, [facility] [address] [id number] [address] [place] [address], [place] [address] May, [facility] [address] [id number] [address] [place] [address], [place] [address] Apr, [facility] [address] [id number] [address] [place] [address], [place] [address] Apr, [facility] [address] [id number] [address] [place] [address], [place] [address] Apr, [facility] [address] [id number] [address] [place] [address], [place] [address] Apr, [facility] [address] [id number] [address] [place] [address], [place] [address] 08 Apr, 2012 [facility] [address] [id number] [address] [place] [address], [place] [address] 08 Apr, 2012 [facility] [address] [id number] [address] [place] [address], [place] [address] Apr, [facility] [address] [id number] [address] [place] [address], [place] [address] Apr, [facility] [address] [id number] [address] [place] [address], [place] [address] Apr, [facility] [address] [id number] [address] [place] [address], [place] [address] Apr, [facility] [address] [id number] [address] [place] [address], [place] [address] Mar, [facility] [address] [id number] [address] [place] [address], [place] [address] Mar, [facility] [address] [id number] [address] [place] [address], [place] [address] Mar, [facility] [address] [id number] [address] [place] [address], [place] [address] Mar, [facility] [address] [id number] [address] [place] [address], [place] [address] Mar, [facility] [address] [id number] [address] [place] [address], [place] [address] Mar, [facility] [address] [id number] [address] [place] [address], [place] [address] Mar, [facility] [address] [id number] [address] [place] [address], [place] [address] Mar, [facility] [address] [id number] [address] [place] [address], [place] [address] Mar, [facility] [address] [id number] [address] [place] [address], [place] [address] Feb, [facility] [address] [id number] [address] [place] [address], [place] [address] 16 Feb, 2012 [facility] [address] [id number] [address] [place] [address], [place] [address] Feb, [facility] [address] [id number] [address] [place] [address], [place] [address] Jan, [facility] [address] [id number] [address] [place] [address], [place] [address] Jan, [facility] [address] [id number] [address] [place] [address], [place] [address] Jan, [facility] [address] [id number] [address] [place] [address], [place] [address] Jan, [facility] [address] [id number] [address] [place] [address], [place] [address] Jan, [facility] [address] [id number] [address] [place] [address], [place] [address] Jan, [facility] [address] [id number] [address] [place] [address], [place] [address] Jan, [facility] [address] [id number] [address] [place] [address], [place] [address] Jan, [facility] [address] [id number] [address] [place] [address], [place] [address] Jan, [facility] [address] [id number] [address] [place] [address], [place] [address] Jan, [facility] [address] [id number] [address] [place] [address], [place] [address] Dec, [facility] [address] [id number] [address] [place] [address], [place] [address] Dec, [facility] [address] [id number] [address] [place] [address], [place] [address] Dec, [facility] [address] [id number] [address] [place] [address], [place] [address] 17 Dec, 2011 [facility] [address] [id number] [address] [place] [address], [place] [address] Nov, [facility] [address] [id number] [address] [place] [address], [place] [address] 08 Nov, 2011 [facility] [address] [id number] [address] [place] [address], [place] [address] Nov, [facility] [address] [id number] [address] [place] [address], [place] [address] October, [facility] [address] [id number] [address] [place] [address], [place] [address] October, [facility] [address] [id number] [address] [place] [address], [place] [address] October, [facility] [address] [id number] [address] [place] [address], [place] [address] October, [facility] [address] [id number] [address] [place] [address], [place] [address] October, [facility] [address] [id number] [address] [place] [address], [place] [address] October, [facility] [address] [id number] [address] [place] [address], [place] [address] Aug, [facility] [address] [id number] [address] [place] [address], [place] [address] Mar, [facility] [address] [id number] [address] [place] [address], [place] [address] Nov, [facility] [address] [id number] [address] [place] [address], [place] [address] May, [facility] [address] [id number] [address] [place] [address], [place] [address] May, [facility] [address] [id number] [address] [place] [address], [place] [address] Apr, [facility] [address] [facility] [id number] [address] [place] [address] Mar, [facility] [address] [facility] [id number] [address] [place] [address] Mar, IMMUNIZATIONS No Known Immunizations SOCIAL HISTORY Never Assessed REASON FOR VISIT Blood [facility] check[id number] VITAL SIGNS Height 64 in 2017-10-17 Blood pressure systolic 134 mmHg 2017-10-17 Blood pressure diastolic 72 mmHg 2017-10-17 MEDICATIONS Unknown Medications RESULTS No Results PROCEDURES [...]
--- OUTSIDE RECORDS SUMMARY | 2019-06-19 05:37 | XMS REPORT ---
Author Author Sydnie HANCOCK [facility] Address [address] [place] [address] Care Team Providers Care Greige Goods Inspector Name Role Phone NAHOMY HANCOCK Unavailable PROBLEMS Type Condition ICD9-CM Code JLZ63-RO Code Onset Dates Condition S tatus SNOMED Code Problem Hormone replacement therapy Z79.890 Ac tive 618645651 Problem Abnormal CT scan, head R93.0 Active 374066299 Problem Sensorineural hearing loss (SNHL) of both ears H90 .3 Active 241104421 Problem History of colon polyps Z86.010 Active 163978753 Problem Bruising, spontaneous R23.3 Active 943211600 Problem Generalized anxiety disorder F41.1 A ctive 64780434 Problem Arthralgia of hip, unspecified laterality M25.559 Active 14469263 Problem Hematuria, unspecified type R31.9 Ac tive 71119257 Problem Imbalance R26.89 Active 797927053 Problem Hammer toe of right foot M20.41 Activ e 581214906 Problem Plantar wart of right foot B07.0 Act mitchell [id number] Problem Sciatica of left side M54.32 Active 29293199 Problem Hyperlipidemia, unspecified hyperlipidemia type E7 8.5 Active 48073964 Problem Hypertension I10 Active 4357162 3 Problem Night sweats R61 Active 3304062 0 Problem Fibromyalgia M79.7 Active 6217622 7 Problem Major depressive disorder, recurrent episode, moderate F33.1 Active 741569786 Problem Acute left-sided low back pain with left-sided sciatica M54.42 Active 159530850 Problem Bladder spasm N32.89 Active 686110 006 Problem Gastritis without bleeding, unspecified chronicity, unspecified gastritis type K29.70 Active 398513902 Problem Bipolar 1 disorder, mixed F31.60 Acti ve 40815115 Problem Grief F43.20 Active 36447774 Problem Other chronic pain G89.29 Active 8 9443541 Problem Allergic rhinitis J30.9 Active 61 718651 Problem Hot flashes due to menopause N95.1 A ctive 450597996 Problem Ataxia R27.0 Active 59322187 Problem Hearing loss, unspecified laterality H91.90 Active 67467160 ALLERGIES No Information ENCOUNTERS Encounter Location Date Diagnosis [facility] [address] [facility] [id number] [address] [place] [phone] Mar, [facility] [address] [facility] [id number] [address] [place] [address] Jan, [facility] [address] [facility] [id number] [address] [place] [address] Jan, [facility] [address] [facility] [id number] [address] [place] [address] Jan, [facility] [address] [place] [id number] [place] [address] Jan, [facility] [address] [facility] [id number] [address] [place] [address] Jan, Bipolar 1 disorder, mixed F3 1.60 [facility] [address] [facility] [id number] [address] [place] [address] Dec, Bipolar 1 disorder, mixed F3 1.60 ; Generalized anxiety disorder F41.1 and Other jail (current) drug therapy Z79.899 [facility] [address] [facility] [id number] [address] [place] [address] Dec, 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.899 [facility] [address] [facility] [id number] [address] [place] [address] Dec, Bipolar 1 disorder, mixed F3 1.60 [facility] [address] [facility] [id number] [address] [place] [address] Dec, Bipolar 1 disorder, mixed F3 1.60 [facility] [address] [facility] [id number] [address] [place] [address] Nov, Bipolar 1 disorder, mixed F3 1.60 [facility] [address] [facility] [id number] [address] [place] [phone] 27 Nov, 2017 Bipolar 1 disorder, mixed F3 1.60 [facility] [address] [place] [id number] [place] [address] Nov, Bipolar 1 disorder, mixed F3 1.60 [facility] [address] [place] [id number] [place] [address] Nov, Allergic rhinitis J30.9 [facility] [address] [place] [id number] [place] [address] Nov, Allergic rhinitis J30.9 [place] [address] [place] [id number] [place] [address] Nov, [facility] [address] [place] [id number] [place] [address] Nov, Bipolar 1 disorder, mixed F3 1.60 [place] [address] [address] 06 Nov, 2017 Fibromyalgia M79.7 and Aller gic rhinitis J30.9 [place] [address] [place] [id number] [place] [address] October, Bipolar 1 disorder, mixed F3 1.60 [facility] [address] [place] [id number] [place] [address] October, Acute nasopharyngitis J00 [facility] [address] [place] [id number] [place] [address] October, Bitten or stung by nonvenomo us insect and other nonvenomous arthropods, initial encounter W57.XXXA and Insect bite (nonvenomous) of abdominal wall, initial encounter S30.861A [facility] [address] [place] [id number] [place] [address] October, Insect bite (nonvenomous) of abdominal wall, initial encounter S30.861A ; Bitten or stung by nonvenomous insect and other nonvenomous arthropods, initial encounter W57.XXXA ; Allergic rhinitis J30.9 and Low back pain M54.5 [facility] [address] [facility] [id number] [address] [place] [address] October, Bipolar 1 disorder, mixed F3 1.60 [facility] [address] [facility] [id number] [address] [place] [address] October, [facility] [address] [id number] [address] [place] [address] October, [facility] [address] [id number] [address] [place] [address] October, Bipolar 1 disorder, mixed F3 1.60 [facility] [address] [facility] [id number] [address] [place] [address] Sep, Bipolar 1 disorder, mixed F3 1.60 [facility] [address] [place] [id number] [place] [address] Sep, Other chronic pain G89.29 [facility] [address] [facility] [id number] [address] [place] [address] Sep, [facility] [address] [facility] [id number] [address] [place] [address] Sep, Bipolar 1 disorder, mixed F3 1.60 [facility] [address] [facility] [id number] [address] [place] [address] Sep, Allergic rhinitis J30.9 and Sciatica of left side M54.32 [facility] [address] [facility] [id number] [address] [place] [address] Sep, Bipolar 1 disorder, mixed F3 1.60 [facility] [address] [facility] [id number] [address] [place] [address] Sep, Bipolar 1 disorder, mixed F3 1.60 and Generalized anxiety disorder F41.1 [facility] [address] [facility] [id number] [address] [place] [address] Aug, [facility] [address] [facility] [id number] [address] [place] [address] Aug, Bipolar 1 disorder, mixed F3 1.60 [facility] [address] [facility] [id number] [address] [place] [address] Aug, Bipolar 1 disorder, mixed F3 1.60 [facility] [address] [facility] [id number] [address] [place] [address] Aug, [facility] [address] [facility] [id number] [address] [place] [address] Aug, Generalized anxiety disorder F41.1 [facility] [address] [facility] [id number] [address] [place] [phone] Aug, Bipolar 1 disorder, mixed F3 1.60 [facility] [address] [facility] [id number] [address] [place] [address] Aug, Plantar wart of right foot B 07.0 [facility] [address] [facility] [id number] [address] [place] [address] Aug, Bipolar 1 disorder, mixed F3 1.60 [facility] [address] [facility] [id number] [address] [place] [address] Jul, Bipolar 1 disorder, mixed F3 1.60 [facility] [address] [facility] [id number] [address] [place] [address] Jul, [facility] [address] [facility] [id number] [address] [place] [phone] Jul, Bipolar 1 disorder, mixed F3 1.60 [facility] [address] [facility] [id number] [address] [place] [address] 09 Jul, 2017 Generalized anxiety disorder F41.1 [facility] [address] [facility] [id number] [address] [place] [phone] 07 Jul, 2017 Bipolar 1 disorder, mixed F3 1.60 [facility] [address] [facility] [id number] [address] [place] [address] 07 Jul, 2017 Acute left-sided low back pa in with left-sided sciatica M54.42 [facility] [address] [place] [id number] [place] [address] 05 Jul, 2017 Coccydynia M53.3 [facility] [address] [place] [id number] [address] [place] [address] Jun, Bipolar 1 disorder, mixed F3 1.60 [facility] [address] [place] [id number] [place] [phone] Jun, Acute nasopharyngitis J00 [facility] [address] [address] Jun, Bipolar 1 disorder, mixed F3 1.60 [facility] [address] [address] Jun, Fibromyalgia M79.7 [facility] [address] [address] Jun, Bipolar 1 disorder, mixed F3 1.60 [place] [address] [address] Jun, Fibromyalgia M79.7 and Bipol ar 1 disorder, mixed F31.60 [facility] [address] [place] [id number] [place] [address] May, Bipolar 1 disorder, mixed F3 1.60 ; Generalized anxiety disorder F41.1 and Other jail (current) drug therapy Z79.899 [facility] [address] [place] [id number] [place] [address] May, Bipolar 1 disorder, mixed F3 1.60 [facility] [address] [place] [id number] [place] [address] 14 May, 2017 Cough R05 and Body aches R52 [facility] [address] [place] [id number] [place] [phone] 10 Dec, 2017 Bladder spasm N32.89 and Acu te cystitis without hematuria N30.00 [facility] [address] [place] [id number] [place] [phone] 07 May, 2017 Bipolar 1 disorder, mixed F3 1.60 [facility] [address] [place] [id number] [place] [address] Apr, [place] [address] [address] Apr, Major depressive disorder, r ecurrent episode, moderate F33.1 and Encounter for immunization Z23 [place] [address] [address] Apr, Bipolar 1 disorder, mixed F3 1.60 [place] [address] [place] [id number] [place] [address] Apr, Bipolar 1 disorder, mixed F3 1.60 [place] [address] [address] Apr, Bipolar 1 disorder, mixed F3 1.60 [place] [address] [address] Apr, Yeast vaginitis B37.3 [facility] [address] [place] [id number] [place] [address] Apr, Bipolar 1 disorder, mixed F3 1.60 [facility] [address] [place] [id number] [place] [address] Apr, Encounter for immunization Z 23 and Cellulitis L03.90 [facility] [address] [place] [id number] [place] [address] Apr, Bipolar 1 disorder, mixed F3 1.60 [facility] [address] [place] [id number] [place] [address] Mar, Bipolar 1 disorder, mixed F3 1.60 [place] [address] [place] [id number] [place] [address] Mar, Bipolar 1 disorder, mixed F3 1.60 [place] [address] [place] [id number] [place] [address] Mar, Imbalance R26.89 and Encount er for immunization Z23 [place] [address] [place] [id number] [place] [address] Mar, Generalized anxiety disorder F41.1 [place] [address] [place] [address] Mar, Bipolar 1 disorder, mixed F3 1.60 [place] [address] [place] [id number] [place] [address] Mar, Generalized anxiety disorder F41.1 [place] [address] [place] [id number] [place] [address] Mar, Bipolar 1 disorder, mixed F3 1.60 [place] [address] [place] [address] Mar, Bipolar 1 disorder, mixed F3 1.60 [place] [address] [place] [id number] [place] [address] Feb, Bipolar 1 disorder, mixed F3 1.60 [place] [address] [place] [id number] [place] [address] Feb, Bipolar 1 disorder, mixed F3 1.60 and Generalized anxiety disorder F41.1 [place] [address] [place] [id number] [place] [address] Feb, Gastritis without bleeding, unspecified chronicity, unspecified gastritis type K29.70 ; Hammer toe of right foot M20.41 and Other viral warts B07.8 [place] [address] [place] [id number] [place] [address] Feb, Bipolar 1 disorder, mixed F3 1.60 [place] [address] [place] [id number] [place] [phone] Feb, Bipolar 1 disorder, mixed F3 1.60 [facility] [address] [facility] [id number] [address] [place] [address] 05 Feb, 2017 Bipolar 1 disorder, mixed F3 1.60 [facility] [address] [facility] [id number] [address] [place] [address] 31 Jan, 2017 Encounter for screening mamm ogram for breast cancer Z12.31 ; Other viral warts B07.8 and Allergic rhinitis J30.9 [facility] [address] [facility] [id number] [address] [place] [address] Jan, Bipolar 1 disorder, mixed F3 1.60 [place] [address] [facility] [id number] [address] [place] [address] Jan, Bipolar 1 disorder, mixed F3 1.60 [place] [address] [facility] [id number] [address] [place] [address] 14 Jan, 2017 [place] [address] [place] [id number] [place] [address] Jan, Bipolar 1 disorder, mixed F3 1.60 [place] [id number] [facility] [id number] [address] [place] [address] Jan, Bipolar 1 disorder, mixed F3 1.60 [place] [address] [facility] [id number] [address] [place] [address] 02 Jan, 2017 Allergic rhinitis J30.9 ; He maturia R31.9 and Colon cancer screening Z12.11 [place] [address] [facility] [id number] [address] [place] [address] Dec, Bipolar 1 disorder, mixed F3 1.60 [facility] [address] [facility] [id number] [address] [place] [address] 18 Dec, 2016 Bipolar 1 disorder, mixed F3 1.60 ; Generalized anxiety disorder F41.1 and 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 [facility] [address] [facility] [id number] [address] [place] [address] 17 Dec, 2016 Bipolar 1 disorder, mixed F3 1.60 [place] [address] [facility] [id number] [address] [place] [address] Dec, Bipolar 1 disorder, mixed F3 1.60 [facility] [address] [facility] [id number] [address] [place] [address] Dec, Bipolar 1 disorder, mixed F3 1.60 [facility] [address] [facility] [id number] [address] [place] [address] Dec, Low back pain M54.5 and Recu rrent urinary tract infection N39.0 [facility] [address] [facility] [id number] [address] [place] [address] Nov, Bipolar 1 disorder, mixed F3 1.60 [facility] [address] [facility] [id number] [address] [place] [address] Nov, Bipolar 1 disorder, mixed F3 1.60 [facility] [address] [place] [id number] [place] [address] Nov, Bipolar 1 disorder, mixed F3 1.60 [facility] [address] [facility] [id number] [address] [place] [address] Nov, Bipolar 1 disorder, mixed F3 1.60 [facility] [address] [facility] [id number] [address] [place] [address] Nov, [facility] [address] [facility] [id number] [address] [place] [address] Nov, Anesthesia of skin R20.0 ; F requent UTI N39.0 ; Tobacco abuse Z72.0 and Colon cancer screening Z12.11 [facility] [address] [facility] [id number] [address] [place] [address] Nov, Bipolar 1 disorder, mixed F3 1.60 [facility] [address] [facility] [id number] [address] [place] [address] October, Bipolar 1 disorder, mixed F3 1.60 [facility] [address] [place] [id number] [place] [address] October, Bipolar 1 disorder, mixed F3 1.60 [facility] [address] [place] [address] October, Bipolar 1 disorder, mixed F3 1.60 [facility] [address] [place] [id number] [place] [address] October, Bipolar 1 disorder, mixed F3 1.60 [facility] [address] [address] October, Bipolar 1 disorder, mixed F3 1.60 [place] [address] [place] [address] October, Cervicalgia M54.2 and Bipola r 1 disorder, mixed F31.60 [place] [address] [place] [id number] [place] [address] October, Hypertension I10 ; Hyperlipi demia, unspecified hyperlipidemia type E78.5 and Family history of thyroid disease Z83.49 [place] [address] [place] [address] October, [place] [address] [place] [id number] [place] [address] October, Hypertension I10 ; Hyperlipi demia, unspecified hyperlipidemia type E78.5 and Family history of thyroid problem Z83.49 [place] [address] [place] [address] October, Bipolar 1 disorder, mixed F3 1.60 [place] [address] [place] [id number] [place] [address] Sep, Bipolar 1 disorder, mixed F3 1.60 [place] [address] [place] [id number] [place] [address] Sep, Bipolar 1 disorder, mixed F3 1.60 [facility] [address] [place] [id number] [place] [address] Sep, Bipolar 1 disorder, mixed F3 1.60 [place] [address] [place] [address] Sep, History of colon polyps Z86. 010 and Hematochezia K92.1 [facility] [address] [place] [id number] [place] [address] Sep, Major depressive disorder, r ecurrent episode, moderate F33.1 [place] [address] [address] Sep, Bipolar 1 disorder, mixed F3 1.60 [place] [address] [address] Aug, Hot flashes due to menopause N95.1 [place] [address] [address] Aug, Bipolar 1 disorder, mixed F3 1.60 [place] [address] [address] Aug, [place] [address] [address] Aug, Bipolar 1 disorder, mixed F3 1.60 [place] [address] [address] Aug, Bipolar 1 disorder, mixed F3 1.60 [place] [address] [address] Aug, Hot flashes due to menopause N95.1 ; Cervicalgia M54.2 and Ataxia R27.0 [facility] [address] [address] Jul, Bipolar 1 disorder, mixed F3 1.60 [place] [address] [place] [id number] [place], [place] [id number] Jul, Bipolar 1 disorder, mixed F3 1.60 [place] [address] [address] Jul, Bipolar 1 disorder, mixed F3 1.60 [place] [address] [address] 13 Jul, 2016 Bipolar 1 disorder, mixed F3 1.60 [place] [address] 10 Jul, 2016 Bipolar 1 disorder, mixed F3 1.60 [place] [address] 08 Jul, 2016 Cervicalgia M54.2 ; Tremor R 25.1 ; Hearing abnormally acute, unspecified laterality H93.239 ; Alopecia L65.9 ; Encounter for immunization Z23 and Family history of thyroid disease Z83.49 [place] [address] [place] [address] 06 Jul, 2016 Bipolar 1 disorder, mixed F3 1.60 [place] [address] [place] [address] Jun, [place] [address] Jun, Hearing disorder, unspecifie d laterality H93.299 [place] [address] [place] [address] Jun, Bipolar 1 disorder, mixed F3 1.60 [place] [address] [place] [address] Jun, Bipolar 1 disorder, mixed F3 1.60 [place] [address] [address] Jun, Allergic rhinitis J30.9 [place] [address] [place] [address] Jun, Bipolar 1 disorder, mixed F3 1.60 [place] [address] [address] Jun, Bipolar 1 disorder, mixed F3 1.60 [place] [id number] [id number] [address] [place] [address] Jun, Allergic rhinitis J30.9 [facility] [address] [id number] [address] [place] [address] Jun, Allergic rhinitis J30.9 [facility] [address] [facility] [id number] [address] [place] [phone] Jun, Bipolar 1 disorder, mixed F3 1.60 [facility] [address] [id number] [address] [place] [phone] May, Bipolar 1 disorder, mixed F3 1.60 [facility] [address] [id number] [address] [place] [phone] May, Bipolar 1 disorder, mixed F3 1.60 [facility] [address] [facility] [id number] [address] [place] [phone] May, [facility] [address] [facility] [id number] [address] [place] [phone] May, Bipolar 1 disorder, mixed F3 1.60 [facility] [address] [id number] [address] [place] [phone] May, Bipolar 1 disorder, mixed F3 1.60 [facility] [address] [facility] [id number] [address] [place] [phone] May, [facility] [address] [facility] [id number] [address] [place] [phone] May, [facility] [address] [id number] [address] [place] [phone] May, [facility] [address] [facility] [id number] [address] [place] [phone] May, Abdominal pain, unspecified location R10.9 [facility] [address] [facility] [id number] [address] [place] [phone] May, [facility] [address] [facility] [id number] [address] [place] [phone] Apr, Hematuria R31.9 ; Ataxia R27 .0 and Hearing loss, unspecified laterality H91.90 [facility] [address] [place] [id number] [address] [place] [phone] Apr, Bipolar 1 disorder, mixed F3 1.60 [facility] [address] [place] [id number] [address] [place] [phone] Apr, Acute effusion of both middl e ears H65.193 [facility] [address] [place] [id number] [address] [place] [phone] Apr, Hematuria R31.9 and Pyelonep hritis N12 [place] [address] [place] [id number] [place] [phone] Apr, [place] [address] [phone] Mar, Bipolar 1 disorder, mixed F3 1.60 [facility] [address] [phone] Mar, [facility] [address] [address] [address] Mar, Bipolar 1 disorder, mixed F3 1.60 [place] [address] [address] Mar, Bipolar 1 disorder, mixed F3 1.60 [place] [address] [address] Mar, Encounter for immunization Z 23 and Gastritis without bleeding, unspecified chronicity, unspecified gastritis type K29.70 [facility] [address] [place] [id number] [address] [place] [address] Mar, Bipolar 1 disorder, mixed F3 1.60 and Grief F43.20 [place] [address] [place] [id number] [address] [place] [address] Mar, Gastritis without bleeding, unspecified chronicity, unspecified gastritis type K29.70 [facility] [address] [place] [id number] [address] [place] [address] Mar, Bipolar 1 disorder, mixed F3 1.60 [place] [address] [place] [id number] [place] [address] 05 Mar, 2016 Gastritis without bleeding, unspecified chronicity, unspecified gastritis type K29.70 [facility] [address] [place] [id number] [address] [place] [address] Mar, [place] [address] [place] [id number] [place] [address] Feb, Bipolar 1 disorder, mixed F3 1.60 [place] [address] Feb, Bipolar 1 disorder, mixed F3 1.60 and Grief F43.20 [place] [address] [address] Feb, Gastritis without bleeding, unspecified chronicity, unspecified gastritis type K29.70 [place] [address] [place] [id number] [address] [place] [address] 14 Feb, 2016 Bipolar 1 disorder, mixed F3 1.60 [facility] [address] [place] [id number] [place] [address] 09 Feb, 2016 Gastroesophageal reflux dise ase, esophagitis presence not specified K21.9 [facility] [address] [place] [id number] [place] [address] Jan, Bipolar 1 disorder, mixed F3 1.60 [facility] [address] [place] [id number] [place] [address] Jan, Bipolar 1 disorder, mixed F3 1.60 and Unsteady gait R26.81 [place] [address] [place] [id number] [place] [address] Jan, Bipolar 1 disorder, mixed F3 1.60 [facility] [address] [place] [address] Jan, Bipolar 1 disorder, mixed F3 1.60 and Other jail (current) drug therapy Z79.899 [facility] [address] [facility] [id number] [address] [place] [address] Jan, Bipolar 1 disorder, mixed F3 1.60 [facility] [address] [place] [id number] [place] [address] Jan, Bipolar 1 disorder, mixed F3 1.60 [place] [address] [place] [id number] [place] [address] Jan, Bipolar 1 disorder, mixed F3 1.60 ; Grief F43.20 and 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 [place] [address] [place] [id number] [place] [address] Jan, Bipolar 1 disorder, mixed F3 1.60 [place] [address] [place] [id number] [place] [address] Dec, [place] [address] [place] [id number] [place] [address] Dec, Bipolar 1 disorder, mixed F3 1.60 ; Vitamin D deficiency, unspecified E55.9 ; H/O allergic rhinitis Z87.09 ; Other chronic pain G89.29 and Dorsalgia, unspecified M54.9 [place] [address] [place] [id number] [place] [address] Dec, [place] [address] [place] [id number] [place] [address] Dec, Bipolar 1 disorder, mixed F3 1.60 [place] [address] [place] [id number] [place] [address] Dec, Major depressive disorder, r ecurrent episode, moderate F33.1 [place] [address] [place] [id number] [place] [address] Dec, Major depressive disorder, r ecurrent episode, moderate F33.1 [facility] [address] [facility] [id number] [address] [place] [address] Nov, [facility] [address] [facility] [id number] [address] [place] [address] Nov, Bipolar 1 disorder, mixed F3 1.60 [place] [address] [facility] [id number] [address] [place] [address] Nov, Major depressive disorder, r ecurrent episode, moderate F33.1 [place] [address] [facility] [id number] [address] [place] [address] Nov, Cervicalgia M54.2 ; Arthralg ia of hip, unspecified laterality M25.559 ; Allergic rhinitis J30.9 and Hormone replacement therapy Z79.890 [facility] [address] [facility] [id number] [address] [place] [address] Nov, Other seasonal allergic rhin itis J30.2 [place] [address] [facility] [id number] [address] [place] [address] October, Major depressive disorder, r ecurrent episode, moderate F33.1 [place] [address] [facility] [id number] [address] [place] [address] October, Major depressive disorder, r ecurrent episode, moderate F33.1 and Arthralgia of hip, unspecified laterality M25.559 [place] [address] [facility] [id number] [address] [place] [address] October, Grief F43.20 ; Hypertension I10 ; Hyperlipidemia, unspecified hyperlipidemia type E78.5 ; Other chronic pain G89.29 and Allergic rhinitis, unspecified allergic rhinitis type J30.9 [place] [address] [facility] [id number] [address] [place] [address] October, Major depressive disorder, r ecurrent episode, moderate F33.1 [place] [address] [facility] [id number] [address] [place] [address] Sep, Major depressive disorder, r ecurrent episode, moderate F33.1 [facility] [address] [facility] [id number] [address] [place] [address] Sep, [facility] [address] [facility] [id number] [address] [place] [address] Sep, Major depressive disorder, r ecurrent episode, moderate F33.1 [facility] [address] [facility] [id number] [address] [place] [address] Sep, Grief F43.20 [facility] [address] [facility] [id number] [address] [place] [address] Aug, Major depressive disorder, r ecurrent episode, moderate F33.1 [facility] [address] [facility] [id number] [address] [place] [address] Aug, Bipolar 1 disorder, mixed F3 1.60 [facility] [address] [facility] [id number] [address] [place] [address] Aug, Allergic rhinitis J30.9 ; Ce rvicalgia M54.2 and Low back pain M54.5 [facility] [address] [facility] [id number] [address] [place] [address] Aug, Major depressive disorder, r ecurrent episode, moderate F33.1 [facility] [address] [facility] [id number] [address] [place] [address] Aug, Sinusitis J32.9 and Tobacco 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 [facility] [address] [facility] [id number] [address] [place] [address] Aug, [facility] [address] [facility] [id number] [address] [place] [address] Aug, Depressive disorder, not els ewhere classified F32.9 ; Hormone replacement therapy Z79.[address] scan, head R93.0 [facility] [address] [facility] [id number] [address] [place] [address] Aug, Major depressive disorder, r ecurrent episode, moderate F33.1 [facility] [address] [facility] [id number] [address] [place] [address] Jul, Major depressive disorder, r ecurrent episode, moderate F33.1 [facility] [address] [facility] [id number] [place] [address] Jul, Abdominal pain R10.9 and Hyp ertension I10 [facility] [address] [place] [id number] [place] [address] Jul, [facility] [address] [place] [id number] [place] [address] Jul, Major depressive disorder, r ecurrent episode, moderate F33.1 [facility] [address] [place] [id number] [place] [address] 04 Jul, 2015 [facility] [address] [address] Jul, [facility] [address] [address] Jun, [facility] [address] [address] Jun, Depressive disorder, not els ewhere classified F32.9 [facility] [address] [place] [id number] [address] [place] [address] Jun, [facility] [address] [address] Jun, [facility] [address] [address] Jun, Arthralgia of hip, unspecifi ed laterality M25.559 ; Bruising, spontaneous R23.3 and Night sweats R61 [facility] [address] [place] [id number] [address] [place] [address] Jun, [facility] [address] [address] Jun, [facility] [address] [id number] [address] [place] [address] May, [facility] [address] [id number] [address] [place] [address] May, Myalgia M79.1 and Screening, lipid Z13.220 [facility] [address] [facility] [id number] [address] [place] [address] Apr, Status post cervical spinal fusion Z98.1 ; Fibromyalgia M79.7 and Unsteady gait R26.81 [facility] [address] [id number] [address] [place] [address] Nov, [facility] [address] [facility] [id number] [address] [place] [address] Nov, [facility] [address] [facility] [id number] [address] [place] [address] October, [facility] [address] [facility] [id number] [address] [place] [address] October, [facility] [address] [facility] [id number] [address] [place] [address] October, [facility] [address] [facility] [id number] [address] [place] [address] October, [facility] [address] [facility] [id number] [address] [place] [address] October, [facility] [address] [facility] [id number] [address] [place] [address] October, Dysuria 788.1 ; Nausea 787.0 2 and Urinary tract infection 599.0 [facility] [address] [id number] [address] [place] [address] Sep, [facility] [address] [facility] [id number] [address] [place] [address] Sep, [facility] [address] [facility] [id number] [address] [place] [address] 25 Aug, 2014 [facility] [address] [id number] [facility] [place] [address] 25 Aug, 2014 [facility] [address] [id number] [address] [place] [address], [place] [address] 24 Aug, 2014 [facility] [address] [id number] [address] [place] [address], [place] [address] 24 Aug, 2014 [facility] [address] [id number] [address] [place] [address], [place] [address] 23 Aug, 2014 [facility] [address] [id number] [address] [place] [address], [place] [address] 19 Aug, 2014 [facility] [address] [id number] [address] [place] [address], [place] [address] 19 Aug, 2014 [facility] [address] [id number] [address] [place] [address], [place] [address] 19 Aug, 2014 [facility] [address] [id number] [address] [place] [address], [place] [address] 19 Aug, 2014 [facility] [address] [id number] [address] [place] [address], [place] [address] 18 Aug, 2014 [facility] [address] [id number] [address] [place] [address], [place] [address] 18 Aug, 2014 [facility] [address] [id number] [address] [place] [address], [place] [address] 13 Aug, 2014 [facility] [address] [id number] [address] [place] [address], [place] [address] 13 Aug, 2014 [facility] [address] [id number] [address] [place] [address], [place] [address] 11 Aug, 2014 [facility] [address] [id number] [address] [place] [address], [place] [address] 11 Aug, 2014 [facility] [address] [id number] [address] [place] [address], [place] [address] 06 Aug, 2014 [facility] [address] [id number] [address] [place] [address], [place] [address] Aug, 2014 [facility] [address] [id number] [address] [place] [address], [place] [address] Aug, [facility] [address] [id number] [address] [place] [address], [place] [address] Aug, 2014 [facility] [address] [id number] [address] [place] [address], [place] [address] Aug, [facility] [address] [id number] [address] [place] [address], [place] [address] Aug, [facility] [address] [id number] [address] [place] [address], [place] [address] Aug, [facility] [address] [id number] [address] [place] [address], [place] [address] Jul, [facility] [address] [id number] [address] [place] [address], [place] [address] Jul, 2014 [facility] [address] [id number] [address] [place] [address], [place] [address] Jul, [facility] [address] [id number] [address] [place] [address], [place] [address] Jul, [facility] [address] [id number] [address] [place] [address], [place] [address] Jul, [facility] [address] [id number] [address] [place] [address], [place] [address] Jul, 2014 [facility] [address] [id number] [address] [place] [address], [place] [address] Jul, [facility] [address] [id number] [address] [place] [address], [place] [address] Jul, 2014 [facility] [address] [id number] [address] [place] [address], [place] [address] Jul, 2014 [facility] [address] [id number] [address] [place] [address] Jul, 2014 [facility] [address] [id number] [address] [place] [address], [place] [address] Jul, 2014 [facility] [address] [id number] [address] [place] [address], [place] [address] Jul, 2014 [facility] [address] [id number] [address] [place] [address], [place] [address] Jul, 2014 [facility] [address] [id number] [address] [place] [address], [place] [address] Jul, [facility] [address] [id number] [address] [place] [address], [place] [address] Jun, [facility] [address] [id number] [address] [place] [address], [place] [address] Jun, [facility] [address] [id number] [address] [place] [address], [place] [address] Jun, [facility] [address] [id number] [address] [place] [address], [place] [address] Jun, [facility] [address] [id number] [address] [place] [address], [place] [address] Jun, [facility] [address] [id number] [address] [place] [address], [place] [address] Jun, [facility] [address] [id number] [address] [place] [address], [place] [address] May, [facility] [address] [id number] [address] [place] [address] May, [facility] [address] [id number] [address] [place] [address], [place] [address] May, [facility] [address] [id number] [address] [place] [address], [place] [address] May, [facility] [address] [id number] [address] [place] [address], [place] [address] May, [facility] [address] [id number] [address] [place] [address], [place] [address] May, [facility] [address] [id number] [address] [place] [address], [place] [address] Apr, [facility] [address] [id number] [address] [place] [address], [place] [address] Apr, [facility] [address] [id number] [address] [place] [address], [place] [address] Apr, [facility] [address] [id number] [address] [place] [address], [place] [address] Apr, [facility] [address] [id number] [address] [place] [address], [place] [address] Apr, [facility] [address] [id number] [address] [place] [address], [place] [address] Apr, [facility] [address] [id number] [address] [place] [address], [place] [address] Mar, [facility] [address] [id number] [address] [place] [address], [place] [address] Mar, [facility] [address] [id number] [address] [place] [address], [place] [address] Mar, [facility] [address] [id number] [address] [place] [address], [place] [address] Mar, [facility] [address] [id number] [address] [place] [address], [place] [address] Mar, [facility] [address] [id number] [address] [place] [address], [place] [address] Mar, [facility] [address] [id number] [address] [place] [address], [place] [address] Mar, [facility] [address] [id number] [address] [place] [address], [place] [address] Mar, [facility] [address] [id number] [address] [place] [address], [place] [address] Mar, [facility] [address] [id number] [address] [place] [address], [place] [address] Mar, [facility] [address] [id number] [address] [place] [address], [place] [address] Mar, [facility] [address] [id number] [address] [place] [address], [place] [address] Mar, [facility] [address] [id number] [address] [place] [address], [place] [address] 30 Feb, 2014 [facility] [address] [id number] [address] [place] [address], [place] [address] 29 Feb, 2014 [facility] [address] [id number] [address] [place] [address], [place] [address] Feb, [facility] [address] [id number] [address] [place] [address], [place] [address] Feb, [facility] [address] [id number] [address] [place] [address], [place] [address] Feb, [facility] [address] [id number] [address] [place] [address], [place] [address] Feb, [facility] [address] [id number] [address] [place] [address], [place] [address] Feb, [facility] [address] [id number] [address] [place] [address], [place] [address] Jan, [facility] [address] [id number] [address] [place] [address], [place] [address] Jan, [facility] [address] [id number] [address] [place] [address], [place] [address] Jan, [facility] [address] [id number] [address] [place] [address], [place] [address] Dec, [facility] [address] [id number] [address] [place] [address], [place] [address] Dec, [facility] [address] [id number] [address] [place] [address], [place] [address] Dec, [facility] [address] [id number] [address] [place] [address], [place] [address] Dec, [facility] [address] [id number] [address] [place] [address], [place] [address] Sep, [facility] [address] [id number] [address] [place] [address], [place] [address] Sep, [facility] [address] [id number] [address] [place] [address], [place] [address] Sep, [facility] [address] [id number] [address] [place] [address], [place] [address] Sep, [facility] [address] [id number] [address] [place] [address], [place] [address] Sep, [facility] [address] [id number] [address] [place] [address], [place] [address] Sep, [facility] [address] [id number] [address] [place] [address], [place] [address] Sep, [facility] [address] [id number] [address] [place] [address], [place] [address] Sep, [facility] [address] [id number] [address] [place] [address], [place] [address] Aug, [facility] [address] [id number] [address] [place] [address], [place] [address] Aug, [facility] [address] [id number] [address] [place] [address], [place] [address] May, [facility] [address] [id number] [address] [place] [address], [place] [address] May, [facility] [address] [id number] [address] [place] [address], [place] [address] Apr, [facility] [address] [id number] [address] [place] [address], [place] [address] Apr, [facility] [address] [id number] [address] [place] [address], [place] [address] Apr, [facility] [address] [id number] [address] [place] [address], [place] [address] Apr, [facility] [address] [id number] [address] [place] [address], [place] [address] Apr, [facility] [address] [id number] [address] [place] [address], [place] [address] Apr, [facility] [address] [id number] [address] [place] [address], [place] [address] May, [facility] [address] [id number] [address] [place] [address], [place] [address] 18 May, 2012 [facility] [address] [id number] [address] [place] [address], [place] [address] 15 May, 2012 [facility] [address] [id number] [address] [place] [address], [place] [address] 15 May, 2012 [facility] [address] [id number] [address] [place] [address], [place] [address] May, [facility] [address] [id number] [address] [place] [address], [place] [address] May, [facility] [address] [id number] [address] [place] [address], [place] [address] Apr, [facility] [address] [id number] [address] [place] [address], [place] [address] Apr, [facility] [address] [id number] [address] [place] [address], [place] [address] Apr, [facility] [address] [id number] [address] [place] [address], [place] [address] Apr, [facility] [address] [id number] [address] [place] [address], [place] [address] 08 Apr, 2012 [facility] [address] [id number] [address] [place] [id number] 08 Apr, 2012 [facility] [address] [id number] [address] [place] [address], [place] [address] Apr, [facility] [address] [id number] [address] [place] [phone] Apr, [facility] [address] [id number] [address] [place] [phone] Apr, [facility] [address] [id number] [address] [place] [phone] Apr, [facility] [address] [id number] [address] [place] [address], [place] [address] Mar, [facility] [address] [id number] [address] [place] [phone] Mar, [facility] [address] [id number] [address] [place] [id number] Mar, [facility] [address] [id number] [address] [place] [phone] Mar, [facility] [address] [id number] [address] [place] [phone] Mar, [facility] [address] [id number] [address] [place] [address] Mar, [facility] [address] [id number] [address] [place] [id number] Mar, [facility] [address] [id number] [address] [place] [id number] Mar, [facility] [address] [id number] [address] [place] [phone] Mar, [facility] [address] [id number] [address] [place] [phone] 25 Feb, 2012 [facility] [address] [id number] [address] [place] [id number] 16 Sep2011 [facility] [address] [id number] [address] [place] [address], [place] [address] Feb, [facility] [address] [id number] [address] [place] [address], [place] [address] Jan, [facility] [address] [id number] [address] [place] [address], [place] [address] Jan, [facility] [address] [id number] [address] [place] [address], [place] [address] Jan, [facility] [address] [id number] [address] [place] [address], [place] [address] Jan, [facility] [address] [id number] [address] [place] [address], [place] [address] Jan, [facility] [address] [id number] [address] [place] [address], [place] [address] Jan, [facility] [address] [id number] [address] [place] [address], [place] [address] Jan, [facility] [address] [id number] [address] [place] [address], [place] [address] Jan, [facility] [address] [id number] [address] [place] [address], [place] [address] Jan, [facility] [address] [id number] [address] [place] [address], [place] [address] Jan, [facility] [address] [id number] [address] [place] [address], [place] [address] Dec, [facility] [address] [id number] [address] [place] [address], [place] [address] Dec, [facility] [address] [id number] [address] [place] [address], [place] [address] Dec, [facility] [address] [id number] [address] [place] [address], [place] [address] Dec, [facility] [address] [id number] [address] [place] [address], [place] [address] Nov, [facility] [address] [id number] [address] [place] [address], [place] [address] 08 Nov, 2011 [facility] [address] [id number] [address] [place] [address], [place] [address] Nov, [facility] [address] [id number] [address] [place] [address], [place] [address] October, [facility] [address] [id number] [address] [place] [address], [place] [address] October, [facility] [address] [id number] [address] [place] [address], [place] [address] October, [facility] [address] [id number] [address] [place] [address], [place] [address] October, [facility] [address] [id number] [address] [place] [address], [place] [address] October, [facility] [address] [id number] [address] [place] [address], [place] [address] October, [facility] [address] [id number] [address] [place] [address], [place] [address] Aug, [facility] [address] [id number] [address] [place] [address], [place] [address] Mar, [facility] [address] [id number] [address] [place] [address], [place] [address] Nov, [facility] [address] [id number] [address] [place] [address], [place] [address] May, [facility] [address] [id number] [address] [place] [address], [place] [address] May, [facility] [address] [id number] [address] [place] [address], [place] [address] Apr, [facility] [address] [id number] [address] [place] [address], [place] [address] 15 Mar, 2010 [facility] [address] [id number] [address] [place] [address], [place] [address] 15 Mar, 2010 IMMUNIZATIONS No Known Immunizations SOCIAL HISTORY Never Assessed REASON FOR VISIT Med Change Request PLAN OF CARE VITAL SIGNS MEDICATIONS Medication Instructions Dosage Frequency Start Date End Date Duration S alexandr Baclofen 20 mg Orally 2 times a day 1 tablet with food or milk 12h October, 15 days Active RESULTS No Results PROCEDURES No [...]
--- OUTSIDE RECORDS SUMMARY | 2019-06-19 05:38 | XMS REPORT ---
Author Author Sydnie MORTON Organization [facility] Address [address] [place] [address] Care Team Providers Care Mold Designer Name Role Phone JOHN MORTON Unavailable PROBLEMS Type Condition ICD9-CM Code IHQ16-TI Code Onset Dates Condition S tatus SNOMED Code Problem Hormone replacement therapy Z79.890 Ac tive 749844996 Problem Abnormal CT scan, head R93.0 Active 660034411 Problem Sensorineural hearing loss (SNHL) of both ears H90 .3 Active 765058679 Problem History of colon polyps Z86.010 Active 948689852 Problem Bruising, spontaneous R23.3 Active 169734676 Problem Generalized anxiety disorder F41.1 A ctive 31505796 Problem Arthralgia of hip, unspecified laterality M25.559 Active 70009485 Problem Hematuria, unspecified type R31.9 Ac tive 48487811 Problem Imbalance R26.89 Active 163560609 Problem Hammer toe of right foot M20.41 Activ e 191729770 Problem Plantar wart of right foot B07.0 Act mitchell [id number] Problem Sciatica of left side M54.32 Active 45819097 Problem Hyperlipidemia, unspecified hyperlipidemia type E7 8.5 Active 25438366 Problem Hypertension I10 Active 2657368 3 Problem Night sweats R61 Active 2876073 0 Problem Fibromyalgia M79.7 Active 3122932 7 Problem Major depressive disorder, recurrent episode, moderate F33.1 Active 307320490 Problem Acute left-sided low back pain with left-sided sciatica M54.42 Active 406593687 Problem Bladder spasm N32.89 Active 307734 006 Problem Gastritis without bleeding, unspecified chronicity, unspecified gastritis type K29.70 Active 132661066 Problem Bipolar 1 disorder, mixed F31.60 Acti ve 21201924 Problem Grief F43.20 Active 55375704 Problem Other chronic pain G89.29 Active 8 3195388 Problem Allergic rhinitis J30.9 Active 61 965765 Problem Hot flashes due to menopause N95.1 A ctive 343202574 Problem Ataxia R27.0 Active 00558328 Problem Hearing loss, unspecified laterality H91.90 Active 89783193 ALLERGIES No Information ENCOUNTERS Encounter Location Date Diagnosis [facility] [address] [facility] [id number] [address] [place] [id number] Mar, [facility] [address] [facility] [id number] [address] [place] [id number] Jan, [facility] [address] [facility] [id number] [address] [place] [phone] Jan, [facility] [address] [facility] [id number] [address] [place] [id number] Jan, [facility] [address] [facility] [id number] [address] [place] [phone] Jan, [facility] [address] [facility] [id number] [address] [place] [id number] Dec, Bipolar 1 disorder, mixed F3 1.60 ; Generalized anxiety disorder F41.1 and 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 [facility] [address] [place] [id number] [address] [place] [phone] Dec, Other fci (current) dr ug therapy Z79.899 [facility] [address] [facility] [id number] [address] [place] [phone] Dec, Bipolar 1 disorder, mixed F3 1.60 [facility] [address] [facility] [id number] [address] [place] [address] Dec, Bipolar 1 disorder, mixed F3 1.60 [facility] [address] [facility] [id number] [address] [place] [id number] Nov, Bipolar 1 disorder, mixed F3 1.60 [facility] [address] [facility] [id number] [address] [place] [id number] Nov, Bipolar 1 disorder, mixed F3 1.60 [facility] [address] [facility] [id number] [address] [place] [id number] 13 Nov, 2017 Bipolar 1 disorder, mixed F3 1.60 [place] [address] [facility] [id number] [address] [place] [id number] 11 Nov, 2017 Allergic rhinitis J30.9 [facility] [address] [facility] [id number] [address] [place] [id number] Nov, Allergic rhinitis J30.9 [facility] [address] [facility] [id number] [address] [place] [id number] Nov, [place] [address] [facility] [id number] [address] [place] [id number] Nov, Bipolar 1 disorder, mixed F3 1.60 [place] [address] [address] Nov, Fibromyalgia M79.7 and Aller gic rhinitis J30.9 [place] [address] [place] [id number] [address] [place] [id number] October, Bipolar 1 disorder, mixed F3 1.60 [facility] [address] [address] October, Acute nasopharyngitis J00 [facility] [address] [place] [address] October, Bitten or stung by nonvenomo us insect and other nonvenomous arthropods, initial encounter W57.XXXA and Insect bite (nonvenomous) of abdominal wall, initial encounter S30.861A [place] [address] [place] [id number] [address] [place] [address] October, Insect bite (nonvenomous) of abdominal wall, initial encounter S30.861A ; Bitten or stung by nonvenomous insect and other nonvenomous arthropods, initial encounter W57.XXXA ; Allergic rhinitis J30.9 and Low back pain M54.5 [place] [address] [place] [address] [place] [address] October, Bipolar 1 disorder, mixed F3 1.60 [facility] [address] [id number] [address] [place] [address] October, [facility] [address] [id number] [address] [place] [address] October, [facility] [address] [facility] [id number] [address] [place] [address] October, Bipolar 1 disorder, mixed F3 1.60 [facility] [address] [id number] [address] [place] [address] Sep, Bipolar 1 disorder, mixed F3 1.60 [facility] [address] [facility] [id number] [address] [place] [address] Sep, Other chronic pain G89.29 [facility] [address] [facility] [id number] [address] [place] [phone] Sep, [facility] [address] [id number] [address] [place] [address] Sep, Bipolar 1 disorder, mixed F3 1.60 [facility] [address] [facility] [id number] [address] [place] [address] Sep, Allergic rhinitis J30.9 and Sciatica of left side M54.32 [facility] [address] [facility] [id number] [address] [place] [address] Sep, Bipolar 1 disorder, mixed F3 1.60 [facility] [address] [id number] [address] [place] [address] Sep, Bipolar 1 disorder, mixed F3 1.60 and Generalized anxiety disorder F41.1 [facility] [address] [facility] [id number] [address] [place] [id number] Aug, [facility] [address] [facility] [id number] [address] [place] [address] Aug, Bipolar 1 disorder, mixed F3 1.60 [facility] [address] [id number] [address] [place] [address] Aug, Bipolar 1 disorder, mixed F3 1.60 [facility] [address] [id number] [address] [place] [id number] Aug, [facility] [address] [facility] [id number] [address] [place] [id number] Aug, Generalized anxiety disorder F41.1 [facility] [address] [facility] [id number] [address] [place] [id number] Aug, Bipolar 1 disorder, mixed F3 1.60 [facility] [address] [facility] [id number] [address] [place] [address] Aug, Plantar wart of right foot B 07.0 [facility] [address] [facility] [id number] [address] [place] [id number] Aug, Bipolar 1 disorder, mixed F3 1.60 [facility] [address] [facility] [id number] [address] [place] [id number] Jul, Bipolar 1 disorder, mixed F3 1.60 [facility] [address] [facility] [id number] [address] [place] [id number] Jul, [facility] [address] [facility] [id number] [address] [place] [id number] 14 Jul, 2017 Bipolar 1 disorder, mixed F3 1.60 [facility] [address] [facility] [id number] [address] [place] [id number] Jul, Generalized anxiety disorder F41.1 [facility] [address] [id number] [address] [place] [id number] Jul, Bipolar 1 disorder, mixed F3 1.60 [facility] [address] [facility] [id number] [address] [place] [id number] 07 Jul, 2017 Acute left-sided low back pa in with left-sided sciatica M54.42 [facility] [address] [address] 05 Jul, 2017 Coccydynia M53.3 [place] [address] [address] Jun, Bipolar 1 disorder, mixed F3 1.60 [facility] [address] [address] Jun, Acute nasopharyngitis J00 [place] [address] [address] Jun, Bipolar 1 disorder, mixed F3 1.60 [place] [address] [address] Jun, Fibromyalgia M79.7 [place] [address] [address] Jun, Bipolar 1 disorder, mixed F3 1.60 [place] [address] [address] Jun, Fibromyalgia M79.7 and Bipol ar 1 disorder, mixed F31.60 [place] [address] [address] May, Bipolar 1 disorder, mixed F3 1.60 ; Generalized anxiety disorder F41.1 and 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 [place] [address] [address] May, Bipolar 1 disorder, mixed F3 1.60 [facility] [address] [address] 14 May, 2017 Cough R05 and Body aches R52 [facility] [address] [address] 10 May, 2017 Bladder spasm N32.89 and Acu te cystitis without hematuria N30.00 [place] [address] [address] 07 May, 2017 Bipolar 1 disorder, mixed F3 1.60 [facility] [address] [place] [id number] [address] [place] [address] Apr, [facility] [address] Apr, Major depressive disorder, r ecurrent episode, moderate F33.1 and Encounter for immunization Z23 [facility] [address] [place] [address] Apr, Bipolar 1 disorder, mixed F3 1.60 [facility] [address] [address] Apr, Bipolar 1 disorder, mixed F3 1.60 [place] [address] 16 Apr, 2017 Bipolar 1 disorder, mixed F3 1.60 [facility] [address] [address] Apr, Yeast vaginitis B37.3 [facility] [address] [address] Apr, Bipolar 1 disorder, mixed F3 1.60 [facility] [address] [place] [id number] [address] [place] [address] 07 Apr, [address]03[address] for immunization Z23 [facility] [address] [place] [id number] [address] [place] [address] Apr, Bipolar 1 disorder, mixed F3 1.60 [facility] [address] [place] [id number] [address] [place] [address] Mar, Bipolar 1 disorder, mixed F3 1.60 [place] [address] [place] [id number] [place] [id number] Mar, Bipolar 1 disorder, mixed F3 1.60 [facility] [address] [place] [id number] [address] [place] [address] Mar, Imbalance R26.89 [address] Encount er for immunization Z23 [place] [address] [place] [id number] [address] [place] [address] Mar, Generalized anxiety disorder F41.1 [facility] [address] [facility] [id number] [address] [place] [address] Mar, Bipolar 1 disorder, mixed F3 1.60 [place] [address] [place] [id number] [address] [place] [address] Mar, Generalized anxiety disorder F41.1 [place] [address] [place] [id number] [address] [place] [address] Mar, Bipolar 1 disorder, mixed F3 1.60 [place] [address] [place] [id number] [address] [place] [address] Mar, Bipolar 1 disorder, mixed F3 1.60 [place] [address] [place] [address] Feb, Bipolar 1 disorder, mixed F3 1.60 [place] [address] [place] [address] Feb, Bipolar 1 disorder, mixed F3 1.60 and Generalized anxiety disorder F41.1 [place] [address] [place] [id number] [address] [place] [address] Feb, Gastritis without bleeding, unspecified chronicity, unspecified gastritis type K29.70 ; Hammer toe of right foot M20.41 and Other viral warts B07.8 [place] [address] [place] [id number] [address] [place] [address] Feb, Bipolar 1 disorder, mixed F3 1.60 [place] [address] [place] [id number] [address] [place] [address] 13 Feb, 2017 Bipolar 1 disorder, mixed F3 1.60 [place] [address] [place] [id number] [address] [place] [address] 05 Feb, 2017 Bipolar 1 disorder, mixed F3 1.60 [place] [address] [facility] [id number] [address] [place] [address] 31 Jan, 2017 Encounter for screening mamm ogram for breast cancer Z12.31 ; Other viral warts B07.8 and Allergic rhinitis J30.9 [facility] [address] [facility] [id number] [address] [place] [address] Jan, Bipolar 1 disorder, mixed F3 1.60 [place] [address] [facility] [id number] [address] [place] [address] Jan, Bipolar 1 disorder, mixed F3 1.60 [place] [address] [facility] [id number] [address] [place] [address] Jan, [place] [address] [facility] [id number] [address] [place] [address] Jan, Bipolar 1 disorder, mixed F3 1.60 [place] [address] [facility] [id number] [address] [place] [address] Jan, Bipolar 1 disorder, mixed F3 1.60 [place] [address] [facility] [id number] [address] [place] [address] Jan, Allergic rhinitis J30.9 ; He maturia R31.9 and Colon cancer screening Z12.11 [place] [address] [facility] [id number] [address] [place] [id number] Dec, Bipolar 1 disorder, mixed F3 1.60 [place] [address] [facility] [id number] [address] [place] [address] Dec, Bipolar 1 disorder, mixed F3 1.60 ; Generalized anxiety disorder F41.1 and Other fci (current) drug therapy Z79.899 [place] [address] [facility] [id number] [address] [place] [address] Dec, Bipolar 1 disorder, mixed F3 1.60 [place] [address] [facility] [id number] [address] [place] [address] Dec, Bipolar 1 disorder, mixed F3 1.60 [place] [address] [facility] [id number] [address] [place] [address] Dec, Bipolar 1 disorder, mixed F3 1.60 [facility] [address] [facility] [id number] [address] [place] [address] Dec, Low back pain M54.5 and Recu rrent urinary tract infection N39.0 [facility] [address] [place] [id number] [address] [place] [address] Nov, Bipolar 1 disorder, mixed F3 1.60 [facility] [address] [facility] [id number] [address] [place] [address] Nov, Bipolar 1 disorder, mixed F3 1.60 [place] [address] [place] [id number] [address] [place] [address] Nov, Bipolar 1 disorder, mixed F3 1.60 [place] [address] [place] [id number] [address] [place] [address] Nov, Bipolar 1 disorder, mixed F3 1.60 [facility] [address] [place] [id number] [address] [place] [address] Nov, [facility] [address] [place] [id number] [address] [place] [address] Nov, Anesthesia of skin R20.0 ; F requent UTI N39.0 ; Tobacco abuse Z72.0 and Colon cancer screening Z12.11 [facility] [address] [place] [id number] [address] [place] [address] Nov, Bipolar 1 disorder, mixed F3 1.60 [facility] [address] [facility] [id number] [address] [place] [address] October, Bipolar 1 disorder, mixed F3 1.60 [facility] [address] [place] [id number] [address] [place] [address] October, Bipolar 1 disorder, mixed F3 1.60 [facility] [address] [place] [id number] [address] [place] [address] October, Bipolar 1 disorder, mixed F3 1.60 [facility] [address] [place] [id number] [address] [place] [address] October, Bipolar 1 disorder, mixed F3 1.60 [facility] [address] [place] [id number] [address] [place] [address] October, Bipolar 1 disorder, mixed F3 1.60 [place] [address] [place] [id number] [place] [address] October, Cervicalgia M54.2 and Bipola r 1 disorder, mixed F31.60 [place] [address] [place] [id number] [address] [place] [address] October, Hypertension I10 ; Hyperlipi demia, unspecified hyperlipidemia type E78.5 and Family history of thyroid disease Z83.49 [place] [address] [address] October, [place] [address] [address] October, Hypertension I10 ; Hyperlipi demia, unspecified hyperlipidemia type E78.5 and Family history of thyroid problem Z83.49 [place] [address] [place] [id number] [address] [place] [address] October, Bipolar 1 disorder, mixed F3 1.60 [place] [address] [place] [id number] [address] [place] [address] Sep, Bipolar 1 disorder, mixed F3 1.60 [place] [address] [place] [id number] [address] [place] [address] Sep, Bipolar 1 disorder, mixed F3 1.60 [place] [address] [place] [id number] [address] [place] [address] Sep, Bipolar 1 disorder, mixed F3 1.60 [place] [address] [place] [id number] [address] [place] [address] Sep, History of colon polyps Z86. 010 and Hematochezia K92.1 [facility] [address] [place] [address] Sep, Major depressive disorder, r ecurrent episode, moderate F33.1 [facility] [address] [place] [id number] [address] [place] [address] Sep, Bipolar 1 disorder, mixed F3 1.60 [facility] [address] [place] [id number] [address] [place], [place] [address] Aug, Hot flashes due to menopause N95.1 [facility] [address] [address] Aug, Bipolar 1 disorder, mixed F3 1.60 [place] [address] [address] Aug, [place] [address] [address] Aug, Bipolar 1 disorder, mixed F3 1.60 [place] [address] [address] Aug, Bipolar 1 disorder, mixed F3 1.60 [place] [address] [address] Aug, Hot flashes due to menopause N95.1 ; Cervicalgia M54.2 and Ataxia R27.0 [facility] [address] [place] [address] Jul, Bipolar 1 disorder, mixed F3 1.60 [place] [address] [place] [id number] [address] [place] [address] Jul, Bipolar 1 disorder, mixed F3 1.60 [facility] [address] [place] [id number] [address] [place] [id number] Jul, Bipolar 1 disorder, mixed F3 1.60 [facility] [address] [place] [id number] [address] [place] [address] Jul, Bipolar 1 disorder, mixed F3 1.60 [facility] [address] [address] 10 Jul, 2016 Bipolar 1 disorder, mixed F3 1.60 [place] [address] [address] 08 Jul, 2016 Cervicalgia M54.2 ; Tremor R 25.1 ; Hearing abnormally acute, unspecified laterality H93.239 ; Alopecia L65.9 ; Encounter for immunization Z23 and Family history of thyroid disease Z83.49 [place] [address] [address] Jul, Bipolar 1 disorder, mixed F3 1.60 [place] [address] [address] Jun, [place] [address] [place] [address] Jun, Hearing disorder, unspecifie d laterality H93.299 [place] [address] [address] Jun, Bipolar 1 disorder, mixed F3 1.60 [place] [address] [place] [id number] Jun, Bipolar 1 disorder, mixed F3 1.60 [place] [address] [address] Jun, Allergic rhinitis J30.9 [place] [address] [address] Jun, Bipolar 1 disorder, mixed F3 1.60 [place] [address] [address] Jun, Bipolar 1 disorder, mixed F3 1.60 [place] [address] [address] Jun, Allergic rhinitis J30.9 [place] [address] [facility] [id number] [address] [place] [id number] Jun, Allergic rhinitis J30.9 [facility] [address] [place] [id number] Jun, Bipolar 1 disorder, mixed F3 1.60 [facility] [address] [address] May, Bipolar 1 disorder, mixed F3 1.60 [facility] [address] [place] [id number] [address] [place] [id number] May, Bipolar 1 disorder, mixed F3 1.60 [facility] [address] [address] May, [facility] [address] [place] [id number] [place] [id number] May, Bipolar 1 disorder, mixed F3 1.60 [facility] [address] [place] [id number] [place] [id number] May, Bipolar 1 disorder, mixed F3 1.60 [facility] [address] [address] May, [facility] [address] [address] May, [facility] [address] [address] May, [facility] [address] [address] May, Abdominal pain, unspecified location R10.9 [facility] [address] [address] May, [facility] [address] [place] [id number] [place], [place] [id number] Apr, Hematuria R31.9 ; Ataxia R27 .0 and Hearing loss, unspecified laterality H91.90 [facility] [address] [address] Apr, Bipolar 1 disorder, mixed F3 1.60 [facility] [address] [address] Apr, Acute effusion of both middl e ears H65.193 [facility] [address] [address] 10 Apr, 2016 Hematuria R31.9 and Pyelonep hritis N12 [place] [address] [address] Apr, [place] [address] [address] Mar, Bipolar 1 disorder, mixed F3 1.60 [place] [address] [address] Mar, [place] [address] [address] Mar, Bipolar 1 disorder, mixed F3 1.60 [place] [address] [address] Mar, Bipolar 1 disorder, mixed F3 1.60 [place] [address] [address] Mar, Encounter for immunization Z 23 and Gastritis without bleeding, unspecified chronicity, unspecified gastritis type K29.70 [facility] [address] [address] Mar, Bipolar 1 disorder, mixed F3 1.60 and Grief F43.20 [place] [address] [address] Mar, Gastritis without bleeding, unspecified chronicity, unspecified gastritis type K29.70 [place] [address] [address] Mar, Bipolar 1 disorder, mixed F3 1.60 [facility] [address] [facility] [id number] [address] [place] [id number] 05 Mar, 2016 Gastritis without bleeding, unspecified chronicity, unspecified gastritis type K29.70 [facility] [address] [facility] [id number] [address] [place], [place] [address] Mar, [facility] [address] [place] [id number] [place] [address] Feb, Bipolar 1 disorder, mixed F3 1.60 [facility] [address] [place] [id number] [address] [place] [address] Feb, Bipolar 1 disorder, mixed F3 1.60 and Grief F43.20 [facility] [address] [place] [id number] [address] [place] [id number] Feb, Gastritis without bleeding, unspecified chronicity, unspecified gastritis type K29.70 [facility] [address] [place] [id number] [address] [place] [id number] 14 Feb, 2016 Bipolar 1 disorder, mixed F3 1.60 [facility] [address] [facility] [id number] [address] [place] [id number] 09 Feb, 2016 Gastroesophageal reflux dise ase, esophagitis presence not specified K21.9 [facility] [address] [place] [id number] [address] [place] [id number] Jan, Bipolar 1 disorder, mixed F3 1.60 [facility] [address] [place] [id number] [address] [place] [id number] Jan, Bipolar 1 disorder, mixed F3 1.60 and Unsteady gait R26.81 [facility] [address] [place] [id number] [address] [place] [id number] Jan, Bipolar 1 disorder, mixed F3 1.60 [facility] [address] [facility] [id number] [address] [place] [id number] Jan, Bipolar 1 disorder, mixed F3 1.60 and 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 [facility] [address] [facility] [id number] [address] [place] [id number] Jan, Bipolar 1 disorder, mixed F3 1.60 [place] [address] [facility] [id number] [address] [place] [id number] Jan, Bipolar 1 disorder, mixed F3 1.60 [place] [address] [place] [id number] [address] [place] [address] Jan, Bipolar 1 disorder, mixed F3 1.60 ; Grief F43.20 and 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 [place] [address] [place] [id number] [place] [address] Jan, Bipolar 1 disorder, mixed F3 1.60 [place] [address] [place] [id number] [address] [place] [address] Dec, [place] [address] [address] Dec, Bipolar 1 disorder, mixed F3 1.60 ; Vitamin D deficiency, unspecified E55.9 ; H/O allergic rhinitis Z87.09 ; Other chronic pain G89.29 and Dorsalgia, unspecified M54.9 [place] [address] [place] [id number] [place] [id number] Dec, [place] [address] [place] [id number] [address] [place] [address] Dec, Bipolar 1 disorder, mixed F3 1.60 [place] [address] [place] [id number] [address] [place] [address] Dec, Major depressive disorder, r ecurrent episode, moderate F33.1 [place] [address] [place] [id number] [address] [place] [id number] Dec, Major depressive disorder, r ecurrent episode, moderate F33.1 [place] [address] [place] [id number] [address] [place] [id number] Nov, [place] [address] [place] [id number] [place] [address] Nov, Bipolar 1 disorder, mixed F3 1.60 [place] [address] [place] [id number] [place] [address] Nov, Major depressive disorder, r ecurrent episode, moderate F33.1 [place] [address] [place] [id number] [place] [address] Nov, Cervicalgia M54.2 ; Arthralg ia of hip, unspecified laterality M25.559 ; Allergic rhinitis J30.9 and Hormone replacement therapy Z79.890 [facility] [address] [facility] [id number] [address] [place] [address] Nov, Other seasonal allergic rhin itis J30.2 [place] [id number] [place] [address] October, Major depressive disorder, r ecurrent episode, moderate F33.1 [place] [id number] [place] [address] October, Major depressive disorder, r ecurrent episode, moderate F33.1 and Arthralgia of hip, unspecified laterality M25.559 [place] [address] [place] [address] October, Grief F43.20 ; Hypertension I10 ; Hyperlipidemia, unspecified hyperlipidemia type E78.5 ; Other chronic pain G89.29 and Allergic rhinitis, unspecified allergic rhinitis type J30.9 [place] [address] [facility] [id number] [address] [place] [address] October, Major depressive disorder, r ecurrent episode, moderate F33.1 [place] [address] [place] [id number] [place] [address] Sep, Major depressive disorder, r ecurrent episode, moderate F33.1 [place] [address] [place] [id number] [place] [address] Sep, [place] [address] [facility] [id number] [address] [place] [address] Sep, Major depressive disorder, r ecurrent episode, moderate F33.1 [place] [address] [place] [id number] [place] [address] Sep, Grief F43.20 [place] [address] [place] [id number] [place] [address] Aug, Major depressive disorder, r ecurrent episode, moderate F33.1 [place] [address] [place] [id number] [place] [address] Aug, Bipolar 1 disorder, mixed F3 1.60 [place] [address] [place] [id number] [place] [address] Aug, Allergic rhinitis J30.9 ; Ce rvicalgia M54.2 and Low back pain M54.5 [place] [address] [place] [address] Aug, Major depressive disorder, r ecurrent episode, moderate F33.1 [facility] [address] [place] [id number] [place] [address] Aug, Sinusitis J32.9 and Tobacco 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 [facility] [address] [place] [id number] [place] [address] Aug, [facility] [address] [address] Aug, Depressive disorder, not els ewhere classified F32.9 ; Hormone replacement therapy Z79.[address] scan, head R93.0 [place] [address] [place] [id number] [place] [address] Aug, Major depressive disorder, r ecurrent episode, moderate F33.1 [facility] [address] [place] [id number] [place] [address] Jul, Major depressive disorder, r ecurrent episode, moderate F33.1 [facility] [address] [facility] [id number] [address] [place] [address] 17 Jul, 2015 Abdominal pain R10.9 and Hyp ertension I10 [facility] [address] [facility] [id number] [address] [place] [id number] 08 Jul, 2015 [facility] [address] [place] [id number] [place] [address] Jul, Major depressive disorder, r ecurrent episode, moderate F33.1 [facility] [address] [facility] [id number] [address] [place] [id number] 04 Jul, 2015 [facility] [address] [facility] [id number] [place] [address] Jul, [facility] [address] [address] Jun, [facility] [address] [address] Jun, Depressive disorder, not els ewhere classified F32.9 [facility] [address] [place] [id number] [place] [address] Jun, [facility] [address] [place] [id number] [place] [address] Jun, [facility] [address] [address] Jun, Arthralgia of hip, unspecifi ed laterality M25.559 ; Bruising, spontaneous R23.3 and Night sweats R61 [facility] [address] [facility] [id number] [address] [place] [address] Jun, [facility] [address] [place] [id number] [place] [address] Jun, [facility] [address] [place] [id number] [place] [address] May, [facility] [address] [facility] [id number] [address] [place] [address] 15 May, 2015 Myalgia M79.1 and Screening, lipid Z13.220 [facility] [address] [facility] [id number] [address] [place] [address] Apr, Status post cervical spinal fusion Z98.1 ; Fibromyalgia M79.7 and Unsteady gait R26.81 [facility] [address] [id number] [address] [place] [address] Nov, [facility] [address] [id number] [address] [place] [address] Nov, [facility] [address] [facility] [id number] [address] [place] [address] October, [facility] [address] [facility] [id number] [address] [place] [id number] October, [facility] [address] [facility] [id number] [address] [place] [address] October, [facility] [address] [facility] [id number] [address] [place] [id number] October, [facility] [address] [facility] [id number] [address] [place] [id number] October, [facility] [address] [facility] [id number] [address] [place] [address] October, Dysuria 788.1 ; Nausea 787.0 2 and Urinary tract infection 599.0 [facility] [address] [id number] [address] [place] [address] Sep, [facility] [address] [facility] [id number] [address] [place] [address] Sep, [facility] [address] [facility] [id number] [address] [place] [address] Aug, [facility] [address] [facility] [id number] [address] [place] [id number] Aug, [facility] [address] [id number] [address] [place] [address], [place] [address] 24 Aug, 2014 [facility] [address] [id number] [address] [place] [address], [place] [address] 24 Aug, 2014 [facility] [address] [id number] [address] [place] [address], [place] [address] 23 Aug, 2014 [facility] [address] [id number] [address] [place] [address], [place] [address] 19 Aug, 2014 [facility] [address] [id number] [address] [place] [address], [place] [address] 19 Aug, 2014 [facility] [address] [id number] [address] [place] [address], [place] [address] 19 Aug, 2014 [facility] [address] [id number] [address] [place] [address], [place] [address] 19 Aug, 2014 [facility] [address] [id number] [address] [place] [address], [place] [address] 18 Aug, 2014 [facility] [address] [id number] [address] [place] [address], [place] [address] 18 Aug, 2014 [facility] [address] [id number] [address] [place] [address], [place] [address] 13 Aug, 2014 [facility] [address] [id number] [address] [place] [address], [place] [address] 13 Aug, 2014 [facility] [address] [id number] [address] [place] [address], [place] [address] 11 Aug, 2014 [facility] [address] [id number] [address] [place] [address], [place] [address] 11 Aug, 2014 [facility] [address] [id number] [address] [place] [address], [place] [address] 06 Aug, 2014 [facility] [address] [id number] [address] [place] [address], [place] [address] 06 Aug, 2014 [facility] [address] [id number] [address] [place] [address], [place] [address] 05 Aug, 2014 [facility] [address] [id number] [address] [place] [address], [place] [address] Aug, 2014 [facility] [address] [id number] [address] [place] [address], [place] [address] Aug, 2014 [facility] [address] [id number] [address] [place] [address], [place] [address] Aug, 2014 [facility] [address] [id number] [address] [place] [address], [place] [address] Aug, [facility] [address] [id number] [address] [place] [address], [place] [address] Jul, 2014 [facility] [address] [id number] [address] [place] [address], [place] [address] Jul, 2014 [facility] [address] [id number] [address] [place] [address], [place] [address] Jul, 2014 [facility] [address] [id number] [address] [place] [address], [place] [address] Jul, 2014 [facility] [address] [id number] [address] [place] [address], [place] [address] Jul, 2014 [facility] [address] [id number] [address] [place] [address], [place] [address] Jul, 2014 [facility] [address] [id number] [address] [place] [address], [place] [address] Jul, 2014 [facility] [address] [id number] [address] [place] [address], [place] [address] Jul, 2014 [facility] [address] [id number] [address] [place] [address], [place] [address] Jul, 2014 [facility] [address] [id number] [address] [place] [address] Jul, 2014 [facility] [address] [id number] [address] [place] [address], [place] [address] Jul, 2014 [facility] [address] [id number] [address] [place] [address], [place] [address] Jul, 2014 [facility] [address] [id number] [address] [place] [address], [place] [address] Jul, [facility] [address] [id number] [address] [place] [address], [place] [address] Jul, [facility] [address] [id number] [address] [place] [address], [place] [address] Jun, [facility] [address] [id number] [address] [place] [address], [place] [address] Jun, [facility] [address] [id number] [address] [place] [address], [place] [address] Jun, [facility] [address] [id number] [address] [place] [address], [place] [address] Jun, [facility] [address] [id number] [address] [place] [address], [place] [address] Jun, [facility] [address] [id number] [address] [place] [address], [place] [address] Jun, [facility] [address] [id number] [address] [place] [address], [place] [address] May, [facility] [address] [id number] [address] [place] [address], [place] [address] May, [facility] [address] [id number] [address] [place] [address], [place] [address] May, [facility] [address] [id number] [address] [place] [address], [place] [address] May, [facility] [address] [id number] [address] [place] [address], [place] [address] May, [facility] [address] [id number] [address] [place] [address], [place] [address] May, [facility] [address] [id number] [address] [place] [address], [place] [address] Apr, [facility] [address] [id number] [address] [place] [address], [place] [address] Apr, [facility] [address] [id number] [address] [place] [address], [place] [address] Apr, [facility] [address] [id number] [address] [place] [address], [place] [address] Apr, [facility] [address] [id number] [address] [place] [address], [place] [address] Apr, [facility] [address] [id number] [address] [place] [address], [place] [address] Apr, [facility] [address] [id number] [address] [place] [address], [place] [address] Mar, [facility] [address] [id number] [address] [place] [address], [place] [address] Mar, [facility] [address] [id number] [address] [place] [address], [place] [address] Mar, [facility] [address] [id number] [address] [place] [address], [place] [address] Mar, [facility] [address] [id number] [address] [place] [address] Mar, [facility] [address] [id number] [address] [place] [address], [place] [address] Mar, [facility] [address] [id number] [address] [place] [address] Mar, [facility] [address] [id number] [address] [place] [address], [place] [address] Mar, [facility] [address] [id number] [address] [place] [address] Mar, [facility] [address] [id number] [address] [place] [address] Mar, [facility] [address] [id number] [address] [place] [address], [place] [address] Mar, [facility] [address] [id number] [address] [place] [address], [place] [address] Mar, [facility] [address] [id number] [address] [place] [address], [place] [address] Feb, [facility] [address] [id number] [address] [place] [address], [place] [address] Feb, [facility] [address] [id number] [address] [place] [address], [place] [address] Feb, [facility] [address] [id number] [address] [place] [address], [place] [address] Feb, [facility] [address] [id number] [address] [place] [address], [place] [address] Feb, [facility] [address] [id number] [address] [place] [address], [place] [address] Feb, [facility] [address] [id number] [address] [place] [address], [place] [address] Feb, [facility] [address] [id number] [address] [place] [address], [place] [address] Jan, [facility] [address] [id number] [address] [place] [address], [place] [address] Jan, [facility] [address] [id number] [address] [place] [address], [place] [address] Jan, [facility] [address] [id number] [address] [place] [address], [place] [address] Dec, [facility] [address] [id number] [address] [place] [address], [place] [address] Dec, [facility] [address] [id number] [address] [place] [address], [place] [address] Dec, [facility] [address] [id number] [address] [place] [address], [place] [address] Dec, [facility] [address] [id number] [address] [place] [address], [place] [address] Sep, [facility] [address] [id number] [address] [place] [address], [place] [address] Sep, [facility] [address] [id number] [address] [place] [address], [place] [address] Sep, [facility] [address] [id number] [address] [place] [address], [place] [address] Sep, [facility] [address] [id number] [address] [place] [address], [place] [address] Sep, [facility] [address] [id number] [address] [place] [address], [place] [address] Sep, [facility] [address] [id number] [address] [place] [address], [place] [address] Sep, [facility] [address] [id number] [address] [place] [address], [place] [address] Sep, [facility] [address] [id number] [address] [place] [address], [place] [address] Aug, [facility] [address] [id number] [address] [place] [address], [place] [address] Aug, [facility] [address] [id number] [address] [place] [address], [place] [address] May, [facility] [address] [id number] [address] [place] [address], [place] [address] May, [facility] [address] [id number] [address] [place] [address], [place] [address] Apr, [facility] [address] [id number] [address] [place] [address], [place] [address] Apr, [facility] [address] [id number] [address] [place] [address], [place] [address] Apr, [facility] [address] [id number] [address] [place] [address], [place] [address] Apr, [facility] [address] [id number] [address] [place] [address], [place] [address] Apr, [facility] [address] [id number] [address] [place] [address], [place] [address] Apr, [facility] [address] [id number] [address] [place] [address], [place] [address] 18 May, 2012 [facility] [address] [id number] [address] [place] [address], [place] [address] 18 May, 2012 [facility] [address] [id number] [address] [place] [address], [place] [address] 15 May, 2012 [facility] [address] [id number] [address] [place] [address], [place] [address] 15 May, 2012 [facility] [address] [id number] [address] [place] [address], [place] [address] May, [facility] [address] [id number] [address] [place] [address], [place] [address] 13 May, 2012 [facility] [address] [id number] [address] [place] [address], [place] [address] 13 Apr, 2012 [facility] [address] [id number] [address] [place] [address], [place] [address] 13 Apr, 2012 [facility] [address] [id number] [address] [place] [address], [place] [address] Apr, [facility] [address] [id number] [address] [place] [address], [place] [address] Apr, [facility] [address] [id number] [address] [place] [address], [place] [address] Apr, [facility] [address] [id number] [address] [place] [address], [place] [address] Apr, [facility] [address] [id number] [address] [place] [address], [place] [address] Apr, [facility] [address] [id number] [address] [place] [address], [place] [address] Apr, [facility] [address] [id number] [address] [place] [address], [place] [address] Apr, [facility] [address] [id number] [address] [place] [address], [place] [address] Apr, [facility] [address] [id number] [address] [place] [address], [place] [address] Mar, [facility] [address] [id number] [address] [place] [address], [place] [address] Mar, [facility] [address] [id number] [address] [place] [address], [place] [address] Mar, [facility] [address] [id number] [address] [place] [address], [place] [address] Mar, [facility] [address] [id number] [address] [place] [id number] Mar, [facility] [address] [id number] [address] [place] [address], [place] [id number] Mar, [facility] [address] [id number] [address] [place] [id number] Mar, [facility] [address] [id number] [address] [place] [id number] Mar, [facility] [address] [id number] [address] [place] [id number] Mar, [facility] [address] [id number] [address] [place] [address], [place] [address] 25 Feb, 2012 [facility] [address] [id number] [address] [place] [id number] 16 Sep2011 [facility] [address] [id number] [address] [place] [id number] 11 Sep2011 [facility] [address] [id number] [address] [place] [id number] Jan, [facility] [address] [id number] [address] [place] [address], [place] [address] Jan, [facility] [address] [id number] [address] [place] [address], [place] [address] Jan, [facility] [address] [id number] [address] [place] [address], [place] [address] Jan, [facility] [address] [id number] [address] [place] [address], [place] [address] Jan, [facility] [address] [id number] [address] [place] [address], [place] [address] Jan, [facility] [address] [id number] [address] [place] [address], [place] [address] Jan, [facility] [address] [id number] [address] [place] [address], [place] [address] Jan, [facility] [address] [id number] [address] [place] [address], [place] [address] Jan, [facility] [address] [id number] [address] [place] [address], [place] [address] Jan, [facility] [address] [id number] [address] [place] [address], [place] [address] Dec, [facility] [address] [id number] [address] [place] [address], [place] [address] Dec, [facility] [address] [id number] [address] [place] [address], [place] [address] Dec, [facility] [address] [id number] [address] [place] [address], [place] [address] Dec, [facility] [address] [id number] [address] [place] [address], [place] [address] Nov, [facility] [address] [id number] [address] [place] [address], [place] [address] Nov, [facility] [address] [id number] [address] [place] [address], [place] [address] Nov, [facility] [address] [id number] [address] [place] [id number] October, [facility] [address] [id number] [address] [place] [address], [place] [address] October, [facility] [address] [id number] [address] [place] [id number] October, [facility] [address] [id number] [address] [place] [address], [place] [address] October, [facility] [address] [id number] [address] [place] [address], [place] [address] October, [facility] [address] [id number] [address] [place] [address], [place] [address] October, [facility] [address] [id number] [address] [place] [id number] Aug, [facility] [address] [id number] [address] [place] [id number] Mar, [facility] [address] [id number] [address] [place] [id number] Nov, [facility] [address] [id number] [address] [place] [id number] May, [facility] [address] [id number] [address] [place] [id number] May, [facility] [address] [id number] [address] [place] [id number] Apr, [facility] [address] [id number] [address] [place] [id number] Mar, [facility] [address] [id number] [address] [place] [id number] Mar, IMMUNIZATIONS No Known Immunizations SOCIAL HISTORY Never Assessed REASON FOR VISIT TAMAR f/u PLAN OF CARE Activity Details Follow Up 1 Week Reason:BH F/U VITAL SIGNS MEDICATIONS Unknown Medications RESULTS No Results PROCEDURES Procedure Date Ordered Result Body Site [facility] VISIT MENTAL HEALTH ESTAB PT October 04, 2017 Psychotherapy, patient &/family, 45 minutes, established pat ient October 04, 2017 INSTRUCTIONS MEDICATIONS ADMINISTERED No Known Medications [...]
--- OUTSIDE RECORDS SUMMARY | 2019-06-19 05:38 | XMS REPORT ---
Author Author Sydnie MORTON Organization [facility] Address [address] [place] [address] Care Team Providers Care Molding Supervisor Name Role Phone JOHN MORTON Unavailable PROBLEMS Type Condition ICD9-CM Code JKB37-AH Code Onset Dates Condition S tatus SNOMED Code Problem Hormone replacement therapy Z79.890 Ac tive 109571588 Problem Abnormal CT scan, head R93.0 Active 631802183 Problem Sensorineural hearing loss (SNHL) of both ears H90 .3 Active 753274864 Problem History of colon polyps Z86.010 Active 719249715 Problem Bruising, spontaneous R23.3 Active 947212267 Problem Generalized anxiety disorder F41.1 A ctive 09267397 Problem Arthralgia of hip, unspecified laterality M25.559 Active 22807145 Problem Hematuria, unspecified type R31.9 Ac tive 56933385 Problem Imbalance R26.89 Active 365916682 Problem Hammer toe of right foot M20.41 Activ e 653636898 Problem Plantar wart of right foot B07.0 Act mitchell [id number] Problem Sciatica of left side M54.32 Active 80911957 Problem Hyperlipidemia, unspecified hyperlipidemia type E7 8.5 Active 42151245 Problem Hypertension I10 Active 7743440 3 Problem Night sweats R61 Active 7234841 0 Problem Fibromyalgia M79.7 Active 0991332 7 Problem Major depressive disorder, recurrent episode, moderate F33.1 Active 639499418 Problem Acute left-sided low back pain with left-sided sciatica M54.42 Active 665311908 Problem Bladder spasm N32.89 Active 571393 006 Problem Gastritis without bleeding, unspecified chronicity, unspecified gastritis type K29.70 Active 572818808 Problem Bipolar 1 disorder, mixed F31.60 Acti ve 87225746 Problem Grief F43.20 Active 11688861 Problem Other chronic pain G89.29 Active 8 2740015 Problem Allergic rhinitis J30.9 Active 61 784746 Problem Hot flashes due to menopause N95.1 A ctive 189625225 Problem Ataxia R27.0 Active 56253365 Problem Hearing loss, unspecified laterality H91.90 Active 63658041 ALLERGIES No Information ENCOUNTERS Encounter Location Date Diagnosis [facility] [address] [facility] [id number] [address] [place] [address] Mar, [facility] [address] [facility] [id number] [address] [place] [address] Jan, [facility] [address] [facility] [id number] [address] [place] [phone] Jan, [facility] [address] [facility] [id number] [address] [place] [address] Jan, [facility] [address] [facility] [id number] [address] [place] [address] Jan, [facility] [address] [facility] [id number] [address] [place] [address] Jan, Bipolar 1 disorder, mixed F3 1.60 [facility] [address] [facility] [id number] [address] [place] [address] Dec, Bipolar 1 disorder, mixed F3 1.60 ; Generalized anxiety disorder F41.1 and Other long-term (current) 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 Z79.899 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 [address] [facility] [id number] [address] [place] [address] Dec, Bipolar 1 disorder, mixed F3 1.60 [facility] [address] [facility] [id number] [address] [place] [address] Dec, Bipolar 1 disorder, mixed F3 1.60 [facility] [address] [facility] [id number] [address] [place] [address] Nov, Bipolar 1 disorder, mixed F3 1.60 [facility] [address] [facility] [id number] [address] [place] [id number] 27 Nov, 2017 Bipolar 1 disorder, mixed F3 1.60 [facility] [address] [facility] [id number] [address] [place] [address] Nov, Bipolar 1 disorder, mixed F3 1.60 [place] [address] [place] [id number] [address] [place] [address] Nov, Allergic rhinitis J30.9 [facility] [address] [place] [id number] [address] [place] [address] Nov, Allergic rhinitis J30.9 [place] [address] [place] [id number] [place] [address] Nov, [place] [address] [place] [id number] [place] [address] Nov, Bipolar 1 disorder, mixed F3 1.60 [place] [address] [address] Nov, Fibromyalgia M79.7 and Aller gic rhinitis J30.9 [place] [address] [place] [id number] [place] [address] October, Bipolar 1 disorder, mixed F3 1.60 [facility] [address] [place] [id number] [address] [place] [address] October, Acute nasopharyngitis J00 [facility] [address] [place] [id number] [address] [place] [address] October, Bitten or stung by nonvenomo us insect and other nonvenomous arthropods, initial encounter W57.XXXA and Insect bite (nonvenomous) of abdominal wall, initial encounter S30.861A [facility] [address] [place] [id number] [address] [place] [address] October, Insect bite (nonvenomous) of abdominal wall, initial encounter S30.861A ; Bitten or stung by nonvenomous insect and other nonvenomous arthropods, initial encounter W57.XXXA ; Allergic rhinitis J30.9 and Low back pain M54.5 [facility] [address] [facility] [id number] [address] [place] [address] October, Bipolar 1 disorder, mixed F3 1.60 [facility] [address] [place] [id number] [address] [place] [address] October, [facility] [address] [facility] [id number] [address] [place] [address] October, [facility] [address] [facility] [id number] [address] [place] [address] October, Bipolar 1 disorder, mixed F3 1.60 [facility] [address] [place] [id number] [address] [place] [address] Sep, Bipolar 1 disorder, mixed F3 1.60 [facility] [address] [place] [id number] [address] [place] [address] Sep, Other chronic pain G89.29 [facility] [address] [facility] [id number] [address] [place] [id number] Sep, [facility] [address] [facility] [id number] [address] [place] [address] Sep, Bipolar 1 disorder, mixed F3 1.60 [facility] [address] [facility] [id number] [address] [place] [address] Sep, Allergic rhinitis J30.9 and Sciatica of left side M54.32 [facility] [address] [facility] [id number] [address] [place] [address] Sep, Bipolar 1 disorder, mixed F3 1.60 [facility] [address] [facility] [id number] [address] [place] [address] Sep, Bipolar 1 disorder, mixed F3 1.60 and Generalized anxiety disorder F41.1 [facility] [address] [facility] [id number] [address] [place] [phone] Aug, [facility] [address] [id number] [address] [place] [address] Aug, Bipolar 1 disorder, mixed F3 1.60 [facility] [address] [facility] [id number] [address] [place] [address] Aug, Bipolar 1 disorder, mixed F3 1.60 [facility] [address] [facility] [id number] [address] [place] [address] Aug, [facility] [address] [facility] [id number] [address] [place] [address] Aug, Generalized anxiety disorder F41.1 [facility] [address] [facility] [id number] [address] [place] [address] Aug, Bipolar 1 disorder, mixed F3 1.60 [facility] [address] [facility] [id number] [address] [place] [address] Aug, Plantar wart of right foot B 07.0 [facility] [address] [facility] [id number] [address] [place] [address] Aug, Bipolar 1 disorder, mixed F3 1.60 [facility] [address] [facility] [id number] [address] [place] [address] Jul, Bipolar 1 disorder, mixed F3 1.60 [facility] [address] [facility] [id number] [address] [place] [address] Jul, [facility] [address] [facility] [id number] [address] [place] [address] 14 Jul, 2017 Bipolar 1 disorder, mixed F3 1.60 [facility] [address] [facility] [id number] [address] [place] [address] 09 Jul, 2017 Generalized anxiety disorder F41.1 [facility] [address] [facility] [id number] [address] [place] [address] Jul, Bipolar 1 disorder, mixed F3 1.60 [facility] [address] [facility] [id number] [address] [place] [address] 07 Jul, 2017 Acute left-sided low back pa in with left-sided sciatica M54.42 [facility] [address] [place] [id number] [place] [address] 05 Jul, [address] [facility] [address] [place] [id number] [address] [place] [address] Jun, Bipolar 1 disorder, mixed F3 1.60 [facility] [address] [place] [id number] [place] [address] Jun, Acute nasopharyngitis J00 [place] [address] [address] Jun, Bipolar 1 disorder, mixed F3 1.60 [place] [address] [address] Jun, Fibromyalgia M79.7 [facility] [address] [address] Jun, Bipolar 1 disorder, mixed F3 1.60 [place] [address] [address] Jun, Fibromyalgia M79.7 and Bipol ar 1 disorder, mixed F31.60 [facility] [address] [place] [id number] [address] [place] [address] May, Bipolar 1 disorder, mixed F3 1.60 ; Generalized anxiety disorder F41.1 and Other long-term (current) 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 Z79.899 [facility] [address] [place] [id number] [address] [place] [address] May, Bipolar 1 disorder, mixed F3 1.60 [facility] [address] [place] [id number] [address] [place] [address] 14 May, 2017 Cough R05 and Body aches R52 [facility] [address] [place] [id number] [address] [place] [address] May, Bladder spasm N32.89 and Acu te cystitis without hematuria N30.00 [facility] [address] [address] 07 May, 2017 Bipolar 1 disorder, mixed F3 1.60 [facility] [address] [place] [id number] [address] [place] [address] 30 Apr, 2017 [place] [address] Apr, Major depressive disorder, r ecurrent episode, moderate F33.1 and Encounter for immunization Z23 [place] [address] Apr, Bipolar 1 disorder, mixed F3 1.60 [place] [address] [address] Apr, Bipolar 1 disorder, mixed F3 1.60 [place] [address] [address] Apr, Bipolar 1 disorder, mixed F3 1.60 [place] [address] [address] Apr, Yeast vaginitis B37.3 [place] [address] [address] 09 Apr, 2017 Bipolar 1 disorder, mixed F3 1.60 [facility] [address] [place] [id number] [address] [place] [address] 07 Apr, 2017 Cellulitis L03.[address] for immunization Z23 [facility] [address] [address] Apr, Bipolar 1 disorder, mixed F3 1.60 [place] [address] [place] [id number] [place] [address] Mar, Bipolar 1 disorder, mixed F3 1.60 [place] [address] [address] Mar, Bipolar 1 disorder, mixed F3 1.60 [place] [id number] [place] [address] Mar, Imbalance R26.89 and Encount er for immunization Z23 [place] [address] [place] [id number] [address] [place] [address] Mar, Generalized anxiety disorder F41.1 [place] [address] [place] [address] Mar, Bipolar 1 disorder, mixed F3 1.60 [place] [id number] [place] [address] Mar, Generalized anxiety disorder F41.1 [place] [address] [place] [id number] [address] [place], [place] [address] Mar, Bipolar 1 disorder, mixed F3 1.60 [place] [address] [place] [id number] [address] [place] [address] Mar, Bipolar 1 disorder, mixed F3 1.60 [place] [id number] [place] [address] Feb, Bipolar 1 disorder, mixed F3 1.60 [place] [address] [place] [id number] [address] [place] [address] Feb, Bipolar 1 disorder, mixed F3 1.60 and Generalized anxiety disorder F41.1 [place] [address] [place] [id number] [address] [place] [address] Feb, Gastritis without bleeding, unspecified chronicity, unspecified gastritis type K29.70 ; Hammer toe of right foot M20.41 and Other viral warts B07.8 [place] [address] [place] [id number] [address] [place] [address] Feb, Bipolar 1 disorder, mixed F3 1.60 [place] [address] [place] [id number] [address] [place] [address] Feb, Bipolar 1 disorder, mixed F3 1.60 [place] [address] [facility] [id number] [address] [place] [address] 05 Feb, 2017 Bipolar 1 disorder, mixed F3 1.60 [place] [address] [facility] [id number] [address] [place] [address] 31 Jan, 2017 Encounter for screening mamm ogram for breast cancer Z12.31 ; Other viral warts B07.8 and Allergic rhinitis J30.9 [place] [address] [facility] [id number] [address] [place] [address] Jan, Bipolar 1 disorder, mixed F3 1.60 [place] [address] [facility] [id number] [address] [place] [address] Jan, Bipolar 1 disorder, mixed F3 1.60 [place] [address] [facility] [id number] [address] [place] [address] 14 Jan, 2017 [place] [address] [place] [id number] [address] [place] [address] Jan, Bipolar 1 disorder, mixed F3 1.60 [place] [address] [facility] [id number] [address] [place] [address] Jan, Bipolar 1 disorder, mixed F3 1.60 [place] [address] [place] [id number] [address] [place] [address] 02 Jan, 2017 Allergic rhinitis J30.9 ; He maturia R31.9 and Colon cancer screening Z12.11 [place] [address] [facility] [id number] [address] [place] [address] Dec, Bipolar 1 disorder, mixed F3 1.60 [place] [address] [facility] [id number] [address] [place] [address] 18 Dec, 2016 Bipolar 1 disorder, mixed F3 1.60 ; Generalized anxiety disorder F41.1 and 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 [address] [facility] [id number] [address] [place] [address] Dec, Bipolar 1 disorder, mixed F3 1.60 [facility] [address] [facility] [id number] [address] [place] [address] Dec, Low back pain M54.5 and Recu rrent urinary tract infection N39.0 [facility] [address] [facility] [id number] [address] [place] [address] Nov, Bipolar 1 disorder, mixed F3 1.60 [facility] [address] [facility] [id number] [address] [place] [address] Nov, Bipolar 1 disorder, mixed F3 1.60 [facility] [address] [place] [id number] [address] [place] [address] Nov, Bipolar 1 disorder, mixed F3 1.60 [facility] [address] [facility] [id number] [address] [place] [address] Nov, Bipolar 1 disorder, mixed F3 1.60 [facility] [address] [facility] [id number] [address] [place] [address] Nov, [facility] [address] [facility] [id number] [address] [place] [address] Nov, Anesthesia of skin R20.0 ; F requent UTI N39.0 ; Tobacco abuse Z72.0 and Colon cancer screening Z12.11 [facility] [address] [facility] [id number] [address] [place] [address] Nov, Bipolar 1 disorder, mixed F3 1.60 [facility] [address] [facility] [id number] [address] [place] [address] October, Bipolar 1 disorder, mixed F3 1.60 [facility] [address] [facility] [id number] [address] [place] [address] October, Bipolar 1 disorder, mixed F3 1.60 [facility] [address] [place] [id number] [address] [place] [address] October, Bipolar 1 disorder, mixed F3 1.60 [facility] [address] [place] [id number] [address] [place] [address] October, Bipolar 1 disorder, mixed F3 1.60 [facility] [address] [place] [id number] [place] [address] October, Bipolar 1 disorder, mixed F3 1.60 [facility] [address] [place] [id number] [address] [place] [address] October, Cervicalgia M54.2 and Bipola r 1 disorder, mixed F31.60 [facility] [address] [place] [id number] [address] [place] [address] October, Hypertension I10 ; Hyperlipi demia, unspecified hyperlipidemia type E78.5 and Family history of thyroid disease Z83.49 [facility] [address] [place] [id number] [address] [place] [address] October, [place] [address] [place] [id number] [place] [address] October, Hypertension I10 ; Hyperlipi demia, unspecified hyperlipidemia type E78.5 and Family history of thyroid problem Z83.49 [facility] [address] [place] [id number] [address] [place] [address] October, Bipolar 1 disorder, mixed F3 1.60 [facility] [address] [place] [id number] [address] [place] [address] Sep, Bipolar 1 disorder, mixed F3 1.60 [facility] [address] [place] [id number] [address] [place] [address] Sep, Bipolar 1 disorder, mixed F3 1.60 [facility] [address] [place] [id number] [address] [place] [address] Sep, Bipolar 1 disorder, mixed F3 1.60 [place] [address] [place] [id number] [address] [place] [address] Sep, History of colon polyps Z86. [address] [facility] [address] [address] Sep, Major depressive disorder, r ecurrent episode, moderate F33.1 [facility] [address] [address] Sep, Bipolar 1 disorder, mixed F3 1.60 [place] [address] [address] Aug, Hot flashes due to menopause N95.1 [place] [address] [address] Aug, Bipolar 1 disorder, mixed F3 1.60 [place] [address] [address] Aug, [facility] [address] [address] Aug, Bipolar 1 disorder, mixed F3 1.60 [place] [address] [address] Aug, Bipolar 1 disorder, mixed F3 1.60 [place] [address] [address] Aug, Hot flashes due to menopause N95.1 ; Cervicalgia M54.[address] [facility] [address] [address] Jul, Bipolar 1 disorder, mixed F3 1.60 [place] [address] [place] [id number] [place] [address] Jul, Bipolar 1 disorder, mixed F3 1.60 [place] [address] [address] Jul, Bipolar 1 disorder, mixed F3 1.60 [place] [address] [address] 13 Jul, 2016 Bipolar 1 disorder, mixed F3 1.60 [place] [address] [place] [address] 10 Jul, 2016 Bipolar 1 disorder, mixed F3 1.60 [place] [address] [place] [address] 08 Jul, 2016 Cervicalgia M54.2 ; Tremor R 25.1 ; Hearing abnormally acute, unspecified laterality H93.239 ; Alopecia L65.9 ; Encounter for immunization Z23 and Family history of thyroid disease Z83.49 [place] [address] [place] [id number] 06 Jul, 2016 Bipolar 1 disorder, mixed F3 1.60 [place] [address] [place] [address] Jun, [place] [address] [place] [address] Jun, Hearing disorder, unspecifie d laterality H93.299 [place] [address] [place] [address] Jun, Bipolar 1 disorder, mixed F3 1.60 [place] [address] [place] [address] Jun, Bipolar 1 disorder, mixed F3 1.60 [place] [address] [address] Jun, Allergic rhinitis J30.9 [place] [address] [place] [address] Jun, Bipolar 1 disorder, mixed F3 1.60 [place] [address] [address] Jun, Bipolar 1 disorder, mixed F3 1.[address] [place] [address] [id number] [address] [place] [id number] Jun, Allergic rhinitis J30.9 [facility] [address] [id number] [address] [place] [phone] Jun, Allergic rhinitis J30.9 [facility] [address] [facility] [id number] [address] [place] [id number] Jun, Bipolar 1 disorder, mixed F3 1.60 [facility] [address] [id number] [address] [place] [id number] May, Bipolar 1 disorder, mixed F3 1.60 [facility] [address] [id number] [address] [place] [id number] May, Bipolar 1 disorder, mixed F3 1.60 [facility] [address] [facility] [id number] [address] [place] [id number] May, [facility] [address] [id number] [address] [place] [id number] May, Bipolar 1 disorder, mixed F3 1.60 [facility] [address] [id number] [address] [place] [id number] May, Bipolar 1 disorder, mixed F3 1.60 [facility] [address] [facility] [id number] [address] [place] [phone] May, [facility] [address] [id number] [address] [place] [id number] May, [facility] [address] [id number] [address] [place] [id number] May, [facility] [address] [facility] [id number] [address] [place] [id number] May, Abdominal pain, unspecified location R10.9 [facility] [address] [facility] [id number] [address] [place] [id number] May, [facility] [address] [facility] [id number] [address] [place] [id number] Apr, Hematuria R31.9 ; Ataxia R27 .0 and Hearing loss, unspecified laterality H91.90 [facility] [address] [place] [id number] Apr, Bipolar 1 disorder, mixed F3 1.60 [facility] [facility] [id number] [place] [address] Apr, Acute effusion of both middl e ears H65.193 [facility] [address] [address] Apr, Hematuria R31.9 and Pyelonep hritis N12 [place] [address] [address] Apr, [place] [address] [address] Mar, Bipolar 1 disorder, mixed F3 1.60 [facility] [address] [address] Mar, [facility] [address] [address] Mar, Bipolar 1 disorder, mixed F3 1.60 [place] [address] [address] Mar, Bipolar 1 disorder, mixed F3 1.60 [place] [address] Mar, Encounter for immunization Z 23 and Gastritis without bleeding, unspecified chronicity, unspecified gastritis type K29.70 [facility] [address] [place] [address] Mar, Bipolar 1 disorder, mixed F3 1.60 and Grief F43.20 [place] [address] [address] Mar, Gastritis without bleeding, unspecified chronicity, unspecified gastritis type K29.70 [facility] [address] [place] [id number] [address] [place] [address] Mar, Bipolar 1 disorder, mixed F3 1.60 [place] [address] [facility] [id number] [address] [place], [place] [address] 05 Mar, 2016 Gastritis without bleeding, unspecified chronicity, unspecified gastritis type K29.70 [facility] [address] [place] [id number] [address] [place] [address] Mar, [place] [address] [place] [id number] [place] [address] Feb, Bipolar 1 disorder, mixed F3 1.60 [place] [address] Feb, Bipolar 1 disorder, mixed F3 1.60 and Grief F43.20 [place] [address] [address] Feb, Gastritis without bleeding, unspecified chronicity, unspecified gastritis type K29.70 [place] [address] [address] 14 Feb, 2016 Bipolar 1 disorder, mixed F3 1.60 [facility] [address] [place] [id number] [address] [place] [address] 09 Feb, 2016 Gastroesophageal reflux dise ase, esophagitis presence not specified K21.9 [facility] [address] [place] [id number] [address] [place] [address] Jan, Bipolar 1 disorder, mixed F3 1.60 [facility] [address] [place] [id number] [address] [place] [address] Jan, Bipolar 1 disorder, mixed F3 1.60 and Unsteady gait R26.81 [place] [address] [place] [id number] [address] [place] [address] Jan, Bipolar 1 disorder, mixed F3 1.60 [facility] [address] [place] [id number] [address] [place] [address] Jan, Bipolar 1 disorder, mixed F3 1.60 and Other long-term (current) 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 Z79.899 [facility] [address] [facility] [id number] [address] [place] [address] Jan, Bipolar 1 disorder, mixed F3 1.60 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 [place] [address] N [facility] [id number] [address] [place] [address] Jan, Bipolar 1 disorder, mixed F3 1.60 [place] [address] [place] [id number] [address] [place] [address] Dec, [place] [address] [place] [id number] [address] [place] [address] Dec, Bipolar 1 disorder, mixed F3 1.60 ; Vitamin D deficiency, unspecified E55.9 ; H/O allergic rhinitis Z87.09 ; Other chronic pain G89.29 and Dorsalgia, unspecified M54.9 [place] [address] [place] [id number] [address] [place] [address] Dec, [place] [address] [place] [id number] [address] [place] [address] Dec, Bipolar 1 disorder, mixed F3 1.60 [place] [address] [place] [id number] [address] [place] [address] Dec, Major depressive disorder, r ecurrent episode, moderate F33.1 [place] [address] [place] [id number] [address] [place] [address] Dec, Major depressive disorder, r ecurrent episode, moderate F33.1 [facility] [address] [facility] [id number] [address] [place] [address] Nov, [place] [address] [place] [id number] [address] [place] [address] Nov, Bipolar 1 disorder, mixed F3 1.60 [place] [address] [place] [id number] [address] [place] [address] Nov, Major depressive disorder, r ecurrent episode, moderate F33.1 [place] [address] [facility] [id number] [address] [place] [address] Nov, Cervicalgia M54.2 ; Arthralg ia of hip, unspecified laterality M25.559 ; Allergic rhinitis J30.9 and Hormone replacement therapy Z79.890 [facility] [address] [place] [id number] [address] [place] [address] Nov, Other seasonal allergic rhin itis J30.2 [place] [address] [place] [id number] [address] [place] [address] October, Major depressive disorder, r ecurrent episode, moderate F33.1 [place] [address] [place] [id number] [place] [address] October, Major depressive disorder, r ecurrent episode, moderate F33.1 and Arthralgia of hip, unspecified laterality M25.559 [place] [id number] [place] [address] October, Grief F43.20 ; Hypertension I10 ; Hyperlipidemia, unspecified hyperlipidemia type E78.5 ; Other chronic pain G89.29 and Allergic rhinitis, unspecified allergic rhinitis type J30.9 [place] [address] [place] [id number] [address] [place] [address] October, Major depressive disorder, r ecurrent episode, moderate F33.1 [place] [address] [facility] [id number] [address] [place] [address] Sep, Major depressive disorder, r ecurrent episode, moderate F33.1 [facility] [address] [facility] [id number] [address] [place] [address] Sep, [facility] [address] [facility] [id number] [address] [place] [address] Sep, Major depressive disorder, r ecurrent episode, moderate F33.1 [facility] [address] [facility] [id number] [address] [place] [address] Sep, Grief F43.20 [facility] [address] [facility] [id number] [address] [place] [address] Aug, Major depressive disorder, r ecurrent episode, moderate F33.1 [place] [address] [facility] [id number] [address] [place] [address] Aug, Bipolar 1 disorder, mixed F3 1.60 [place] [address] [facility] [id number] [address] [place] [address] Aug, Allergic rhinitis J30.9 ; Ce rvicalgia M54.2 and Low back pain M54.5 [facility] [address] [facility] [id number] [address] [place] [address] Aug, Major depressive disorder, r ecurrent episode, moderate F33.1 [facility] [address] [facility] [id number] [address] [place] [address] Aug, Sinusitis J32.9 and Tobacco 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 [facility] [address] [facility] [id number] [address] [place] [address] Aug, [facility] [address] [facility] [id number] [address] [place] [address] Aug, Depressive disorder, not els ewhere classified F32.9 ; Hormone replacement therapy Z79.[address] scan, head R93.0 [facility] [address] [facility] [id number] [address] [place] [address] Aug, Major depressive disorder, r ecurrent episode, moderate F33.1 [place] [address] N [facility] [id number] [address] [place] [address] 17 Jul, 2015 Major depressive disorder, r ecurrent episode, moderate F33.1 [facility] [address] [facility] [id number] [address] [place] [address] 17 Jul, 2015 Abdominal pain R10.9 and Hyp ertension I10 [facility] [address] [facility] [id number] [address] [place] [address] [address], [address] [facility] [address] [facility] [id number] [address] [place] [address] Jul, Major depressive disorder, r ecurrent episode, moderate F33.1 [facility] [address] [facility] [id number] [address] [place] [address] [address], 2015 [facility] [address] [facility] [id number] [address] [place] [address] Jul, [facility] [address] [place] [id number] [address] [place] [address] Jun, [facility] [address] [place] [id number] [place] [address] Jun, Depressive disorder, not els ewhere classified F32.9 [facility] [address] [place] [id number] [address] [place] [address] Jun, [facility] [address] [place] [id number] [address] [place] [address] Jun, [place] [address] [place] [id number] [address] [place] [address] Jun, Arthralgia of hip, unspecifi ed laterality M25.559 ; Bruising, spontaneous R23.[address] [facility] [address] [facility] [id number] [address] [place] [address] Jun, [facility] [address] [place] [id number] [address] [place] [address] Jun, [facility] [address] [id number] [address] [place] [address] May, [facility] [address] [id number] [address] [place] [address] May, Myalgia M79.1 and Screening, lipid Z13.220 [facility] [address] [facility] [id number] [address] [place] [address] Apr, Status post cervical spinal fusion Z98.1 ; Fibromyalgia M79.7 and Unsteady gait R26.81 [facility] [address] [id number] [address] [place] [address] Nov, [facility] [address] [id number] [address] [place] [address] Nov, [facility] [address] [facility] [id number] [address] [place] [address] October, [facility] [address] [facility] [id number] [address] [place] [address] October, [facility] [address] [facility] [id number] [address] [place] [id number] October, [facility] [address] [facility] [id number] [address] [place] [address] October, [facility] [address] [facility] [id number] [address] [place] [id number] October, [facility] [address] [facility] [id number] [address] [place] [address] October, Dysuria 788.1 ; Nausea 787.0 2 and Urinary tract infection 599.0 [facility] [address] [id number] [address] [place] [phone] Sep, [facility] [address] [facility] [id number] [address] [place] [address] Sep, [facility] [address] [facility] [id number] [address] [place] [phone] 25 Aug, 2014 [facility] [address] [id number] [address] [place] [address], [place] [address] 25 Aug, 2014 [facility] [address] [id number] [address] [place] [address], [place] [address] 24 Aug, 2014 [facility] [address] [id number] [address] [place] [address], [place] [address] 24 Aug, 2014 [facility] [address] [id number] [address] [place] [address], [place] [address] 23 Aug, 2014 [facility] [address] [id number] [address] [place] [address], [place] [address] 19 Aug, 2014 [facility] [address] [id number] [address] [place] [address], [place] [address] 19 Aug, 2014 [facility] [address] [id number] [address] [place] [address], [place] [id number] 19 Aug, 2014 [facility] [address] [id number] [address] [place] [address], [place] [address] 19 Aug, 2014 [facility] [address] [id number] [address] [place] [address], [place] [id number] 18 Aug, 2014 [facility] [address] [id number] [address] [place] [address], [place] [address] 18 Aug, 2014 [facility] [address] [id number] [address] [place] [address], [place] [address] 13 Aug, 2014 [facility] [address] [id number] [address] [place] [address], [place] [id number] 13 Aug, 2014 [facility] [address] [id number] [address] [place] [address], [place] [address] 11 Aug, 2014 [facility] [address] [id number] [address] [place] [address], [place] [address] 11 Aug, 2014 [facility] [address] [id number] [address] [place] [address], [place] [id number] 06 Aug, 2014 [facility] [address] [id number] [address] [place] [address], [place] [address] Aug, 2014 [facility] [address] [id number] [address] [place] [address], [place] [address] Aug, 2014 [facility] [address] [id number] [address] [place] [address], [place] [address] Aug, 2014 [facility] [address] [id number] [address] [place] [address], [place] [address] Aug, [facility] [address] [id number] [address] [place] [address], [place] [address] Aug, [facility] [address] [id number] [address] [place] [address], [place] [address] Aug, [facility] [address] [id number] [address] [place] [address], [place] [address] Jul, [facility] [address] [id number] [address] [place] [address], [place] [address] Jul, 2014 [facility] [address] [id number] [address] [place] [address], [place] [address] Jul, [facility] [address] [id number] [address] [place] [address], [place] [address] Jul, [facility] [address] [id number] [address] [place] [address], [place] [address] Jul, [facility] [address] [id number] [address] [place] [address], [place] [address] Jul, 2014 [facility] [address] [id number] [address] [place] [address], [place] [address] Jul, 2014 [facility] [address] [id number] [address] [place] [address], [place] [id number] Jul, 2014 [facility] [address] [id number] [address] [place] [address], [place] [address] Jul, 2014 [facility] [address] [id number] [address] [place] [id number] Jul, 2014 [facility] [address] [id number] [address] [place] [address], [place] [address] Jul, 2014 [facility] [address] [id number] [address] [place] [address], [place] [address] Jul, 2014 [facility] [address] [id number] [address] [place] [address], [place] [address] Jul, 2014 [facility] [address] [id number] [address] [place] [address], [place] [address] Jul, [facility] [address] [id number] [address] [place] [address], [place] [id number] Jun, [facility] [address] [id number] [address] [place] [address], [place] [address] Jun, [facility] [address] [id number] [address] [place] [address], [place] [address] Jun, [facility] [address] [id number] [address] [place] [address], [place] [address] Jun, [facility] [address] [id number] [address] [place] [address], [place] [address] Jun, [facility] [address] [id number] [address] [place] [address], [place] [address] Jun, [facility] [address] [id number] [address] [place] [address], [place] [address] May, [facility] [address] [id number] [address] [place] [address], [place] [address] May, [facility] [address] [id number] [address] [place] [address], [place] [address] May, [facility] [address] [id number] [address] [place] [address], [place] [address] May, [facility] [address] [id number] [address] [place] [address], [place] [address] May, [facility] [address] [id number] [address] [place] [address], [place] [address] May, [facility] [address] [id number] [address] [place] [address], [place] [address] Apr, [facility] [address] [id number] [address] [place] [address], [place] [address] Apr, [facility] [address] [id number] [address] [place] [address], [place] [address] Apr, [facility] [address] [id number] [address] [place] [address], [place] [address] Apr, [facility] [address] [id number] [address] [place] [address], [place] [address] Apr, [facility] [address] [id number] [address] [place] [address], [place] [address] Apr, [facility] [address] [id number] [address] [place] [address], [place] [address] Mar, [facility] [address] [id number] [address] [place] [address], [place] [address] Mar, [facility] [address] [id number] [address] [place] [address], [place] [address] Mar, [facility] [address] [id number] [address] [place] [address], [place] [address] Mar, [facility] [address] [id number] [address] [place] [address], [place] [address] Mar, [facility] [address] [id number] [address] [place] [address], [place] [address] Mar, [facility] [address] [id number] [address] [place] [address], [place] [address] Mar, [facility] [address] [id number] [address] [place] [address], [place] [address] Mar, [facility] [address] [id number] [address] [place] [address], [place] [address] Mar, [facility] [address] [id number] [address] [place] [address], [place] [address] Mar, [facility] [address] [id number] [address] [place] [address], [place] [address] Mar, [facility] [address] [id number] [address] [place] [address], [place] [address] Mar, [facility] [address] [id number] [address] [place] [address], [place] [address] 30 Feb, 2014 [facility] [address] [id number] [address] [place] [address], [place] [address] Feb, [facility] [address] [id number] [address] [place] [address], [place] [address] Feb, [facility] [address] [id number] [address] [place] [address], [place] [address] Feb, [facility] [address] [id number] [address] [place] [address], [place] [address] Feb, [facility] [address] [id number] [address] [place] [address], [place] [address] Feb, [facility] [address] [id number] [address] [place] [address], [place] [address] Feb, [facility] [address] [id number] [address] [place] [address], [place] [address] Jan, [facility] [address] [id number] [address] [place] [address], [place] [address] Jan, [facility] [address] [id number] [address] [place] [address], [place] [address] Jan, [facility] [address] [id number] [address] [place] [address], [place] [address] Dec, [facility] [address] [id number] [address] [place] [address], [place] [address] Dec, [facility] [address] [id number] [address] [place] [address], [place] [address] Dec, [facility] [address] [id number] [address] [place] [address], [place] [address] Dec, [facility] [address] [id number] [address] [place] [address], [place] [address] Sep, [facility] [address] [id number] [address] [place] [address], [place] [address] Sep, [facility] [address] [id number] [address] [place] [address], [place] [address] Sep, [facility] [address] [id number] [address] [place] [address], [place] [address] Sep, [facility] [address] [id number] [address] [place] [address], [place] [address] Sep, [facility] [address] [id number] [address] [place] [address], [place] [address] Sep, [facility] [address] [id number] [address] [place] [address], [place] [address] Sep, [facility] [address] [id number] [address] [place] [address], [place] [address] Sep, [facility] [address] [id number] [address] [place] [address], [place] [address] Aug, [facility] [address] [id number] [address] [place] [address], [place] [address] Aug, [facility] [address] [id number] [address] [place] [address], [place] [address] May, [facility] [address] [id number] [address] [place] [address], [place] [address] May, [facility] [address] [id number] [address] [place] [address], [place] [address] Apr, [facility] [address] [id number] [address] [place] [address], [place] [address] Apr, [facility] [place] [address] [id number] [address] [place] [address], [place] [address] Apr, [facility] [address] [id number] [address] [place] [address], [place] [address] Apr, [facility] [address] [id number] [address] [place] [address], [place] [address] Apr, [facility] [address] [id number] [address] [place] [address], [place] [address] Apr, [facility] [address] [id number] [address] [place] [address], [place] [address] May, [facility] [address] [id number] [address] [place] [address], [place] [address] May, [facility] [address] [id number] [address] [place] [address], [place] [address] May, [facility] [place] [address] [id number] [address] [place] [address], [place] [id number] 15 May, 2012 [facility] [place] [address] [id number] [address] [place] [address], [place] [id number] May, [facility] [place] [address] [id number] [address] [place] [address], [place] [id number] May, [facility] [address] [id number] [address] [place] [address], [place] [id number] Apr, [facility] [address] [id number] [address] [place] [address], [place] [id number] Apr, [facility] [address] [id number] [address] [place] [address], [place] [id number] Apr, [facility] [address] [id number] [address] [place] [address], [place] [id number] Apr, [facility] [address] [id number] [address] [place] [address], [place] [id number] Apr, [facility] [address] [id number] [address] [place] [id number] 08 Apr, 2012 [facility] [address] [id number] [address] [place] [address], [place] [id number] Apr, [facility] [address] [id number] [address] [place] [id number] Apr, [facility] [address] [id number] [address] [place] [id number] Apr, [facility] [address] [id number] [address] [place] [id number] Apr, [facility] [address] [id number] [address] [place] [address], [place] [address] Mar, [facility] [address] [id number] [address] [place] [id number] Mar, [facility] [address] [id number] [address] [place] [id number] Mar, [facility] [address] [id number] [address] [place] [id number] Mar, [facility] [address] [id number] [address] [place] [id number] Mar, [facility] [address] [id number] [address] [place] [id number] Mar, [facility] [address] [id number] [address] [place] [id number] Mar, [facility] [address] [id number] [address] [place] [phone] Mar, [facility] [address] [id number] [address] [place] [id number] Mar, [facility] [address] [id number] [address] [place] [id number] 25 Feb, 2012 [facility] [address] [id number] [address] [place] [id number] 16 Sep2011 [facility] [address] [id number] [address] [place] [address], [place] [id number] Feb, [facility] [address] [id number] [address] [place] [address], [place] [id number] Jan, [facility] [address] [id number] [address] [place] [address], [place] [id number] Jan, [facility] [address] [id number] [address] [place] [address], [place] [id number] Jan, [facility] [address] [id number] [address] [place] [address], [place] [id number] Jan, [facility] [address] [id number] [address] [place] [address], [place] [id number] Jan, [facility] [address] [id number] [address] [place] [address], [place] [id number] Jan, [facility] [place] [address] [id number] [address] [place] [address], [place] [id number] Jan, [facility] [place] [address] [id number] [address] [place] [address], [place] [id number] Jan, [facility] [address] [id number] [address] [place] [address], [place] [id number] Jan, [facility] [address] [id number] [address] [place] [address], [place] [id number] Jan, [facility] [address] [id number] [address] [place] [address], [place] [id number] Dec, [facility] [address] [id number] [address] [place] [address], [place] [id number] Dec, [facility] [address] [id number] [address] [place] [address], [place] [address] Dec, [facility] [address] [id number] [address] [place] [address], [place] [id number] Dec, [facility] [address] [id number] [address] [place] [address], [place] [id number] Nov, [facility] [address] [id number] [address] [place] [address], [place] [id number] 08 Nov, 2011 [facility] [address] [id number] [address] [place] [address], [place] [id number] Nov, [facility] [address] [id number] [address] [place] [address], [place] [id number] October, [facility] [address] [id number] [address] [place] [address], [place] [id number] October, [facility] [address] [id number] [address] [place] [address], [place] [id number] October, [facility] [address] [id number] [address] [place] [address], [place] [id number] October, [facility] [address] [id number] [address] [place] [address], [place] [id number] October, [facility] [address] [id number] [address] [place] [address], [place] [id number] October, [facility] [address] [id number] [address] [place] [address], [place] [address] Aug, [facility] [address] [id number] [address] [place] [address], [place] [id number] Mar, [facility] [address] [id number] [address] [place] [address], [place] [id number] Nov, [facility] [address] [id number] [address] [place] [address], [place] [id number] May, [facility] [address] [id number] [address] [place] [address], [place] [address] May, [facility] [address] [id number] [address] [place] [address], [place] [address] Apr, [facility] [address] [id number] [address] [place] [address], [place] [id number] 15 Mar, 2010 [facility] [address] [id number] [address] [place] [address], [place] [id number] 15 Mar, 2010 IMMUNIZATIONS No Known Immunizations SOCIAL HISTORY Never Assessed REASON FOR VISIT BH f/u PLAN OF CARE Activity Details Follow Up 1 Week Reason: F/U VITAL SIGNS MEDICATIONS Unknown Medications RESULTS No Results PROCEDURES Procedure Date Ordered Result Body Site ON LICENSE OF [facility] VISIT MENTAL HEALTH ESTAB PT October 12, 2017 Psychotherapy, patient &/family, 45 minutes, established pat ient October 12, 2017 INSTRUCTIONS MEDICATIONS ADMINISTERED No Known [...]
--- OUTSIDE RECORDS SUMMARY | 2019-06-19 05:38 | XMS REPORT ---
Author Author Sydnie HANCOCK [facility] Address [address] [place] [address] Care Team Providers Care Film Sorter Name Role Phone NAHOMY HANCOCK Unavailable PROBLEMS Type Condition ICD9-CM Code GKK15-AS Code Onset Dates Condition S tatus SNOMED Code Problem Hormone replacement therapy Z79.890 Ac tive 883673354 Problem Abnormal CT scan, head R93.0 Active 109433958 Problem Sensorineural hearing loss (SNHL) of both ears H90 .3 Active 952598154 Problem History of colon polyps Z86.010 Active 053890119 Problem Bruising, spontaneous R23.3 Active 619378584 Problem Generalized anxiety disorder F41.1 A ctive 86480361 Problem Arthralgia of hip, unspecified laterality M25.559 Active 15195573 Problem Hematuria, unspecified type R31.9 Ac tive 99246025 Problem Imbalance R26.89 Active 739279175 Problem Hammer toe of right foot M20.41 Activ e 681663136 Problem Plantar wart of right foot B07.0 Act mitchell [id number] Problem Sciatica of left side M54.32 Active 67539737 Problem Hyperlipidemia, unspecified hyperlipidemia type E7 8.5 Active 34052336 Problem Hypertension I10 Active 5587742 3 Problem Night sweats R61 Active 4796243 0 Problem Fibromyalgia M79.7 Active 9347661 7 Problem Major depressive disorder, recurrent episode, moderate F33.1 Active 995477837 Problem Acute left-sided low back pain with left-sided sciatica M54.42 Active 690791491 Problem Bladder spasm N32.89 Active 842076 006 Problem Gastritis without bleeding, unspecified chronicity, unspecified gastritis type K29.70 Active 397836009 Problem Bipolar 1 disorder, mixed F31.60 Acti ve 63515376 Problem Grief F43.20 Active 83301877 Problem Other chronic pain G89.29 Active 8 9219850 Problem Allergic rhinitis J30.9 Active 61 390645 Problem Hot flashes due to menopause N95.1 A ctive 462010451 Problem Ataxia R27.0 Active 98896215 Problem Hearing loss, unspecified laterality H91.90 Active 77284530 ALLERGIES No Information ENCOUNTERS Encounter Location Date Diagnosis [facility] [address] [facility] [id number] [address] [place] [phone] Mar, [facility] [address] [facility] [id number] [address] [place] [phone] Jan, [facility] [address] [facility] [id number] [address] [place] [phone] Jan, [facility] [address] [facility] [id number] [address] [place] [phone] Jan, [facility] [address] [place] [id number] [address] [place] [phone] Jan, [facility] [address] [facility] [id number] [address] [place] [phone] Jan, Bipolar 1 disorder, mixed F3 1.60 [facility] [address] [facility] [id number] [address] [place] [phone] Dec, Bipolar 1 disorder, mixed F3 1.60 ; Generalized anxiety disorder F41.1 and Other 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 (current) drug therapy Z79.899 [facility] [address] [facility] [id number] [address] [place] [phone] Dec, Other intermodal dispatcher (current) dr ug therapy Z79.899 [facility] [address] [facility] [id number] [address] [place] [phone] Dec, Bipolar 1 disorder, mixed F3 1.60 [facility] [address] [facility] [id number] [address] [place] [phone] Dec, Bipolar 1 disorder, mixed F3 1.60 [facility] [address] [facility] [id number] [address] [place] [phone] Nov, Bipolar 1 disorder, mixed F3 1.60 [facility] [address] [facility] [id number] [address] [place] [phone] 27 Nov, 2017 Bipolar 1 disorder, mixed F3 1.60 [facility] [address] [place] [id number] [address] [place] [phone] Nov, Bipolar 1 disorder, mixed F3 1.60 [facility] [address] [place] [id number] [place] [phone] Nov, Allergic rhinitis J30.9 [facility] [address] [place] [id number] [place] [phone] Nov, Allergic rhinitis J30.9 [place] [address] [place] [id number] [place] [address] Nov, [facility] [address] [place] [id number] [place] [address] Nov, Bipolar 1 disorder, mixed F3 1.60 [place] [address] [address] 06 Nov, 2017 Fibromyalgia M79.7 and Aller gic rhinitis J30.9 [place] [address] [place] [id number] [place] [address] October, Bipolar 1 disorder, mixed F3 1.60 [facility] [address] [place] [id number] [place] [phone] October, Acute nasopharyngitis J00 [facility] [address] [place] [id number] [place] [phone] October, Bitten or stung by nonvenomo us insect and other nonvenomous arthropods, initial encounter W57.XXXA and Insect bite (nonvenomous) of abdominal wall, initial encounter S30.861A [facility] [address] [place] [id number] [place] [address] October, Insect bite (nonvenomous) of abdominal wall, initial encounter S30.861A ; Bitten or stung by nonvenomous insect and other nonvenomous arthropods, initial encounter W57.XXXA ; Allergic rhinitis J30.9 and Low back pain M54.5 [facility] [address] [facility] [id number] [address] [place] [phone] October, Bipolar 1 disorder, mixed F3 1.60 [facility] [address] [facility] [id number] [address] [place] [phone] October, [facility] [address] [id number] [address] [place] [phone] October, [facility] [address] [id number] [address] [place] [phone] October, Bipolar 1 disorder, mixed F3 1.60 [facility] [address] [facility] [id number] [address] [place] [phone] Sep, Bipolar 1 disorder, mixed F3 1.60 [facility] [address] [place] [id number] [address] [place] [phone] Sep, Other chronic pain G89.29 [facility] [address] [facility] [id number] [address] [place] [phone] Sep, [facility] [address] [facility] [id number] [address] [place] [phone] Sep, Bipolar 1 disorder, mixed F3 1.60 [facility] [address] [facility] [id number] [address] [place] [phone] Sep, Allergic rhinitis J30.9 and Sciatica of left side M54.32 [facility] [address] [facility] [id number] [address] [place] [phone] Sep, Bipolar 1 disorder, mixed F3 1.60 [facility] [address] [facility] [id number] [address] [place] [phone] Sep, Bipolar 1 disorder, mixed F3 1.60 and Generalized anxiety disorder F41.1 [facility] [address] [facility] [id number] [address] [place] [phone] Aug, [facility] [address] [facility] [id number] [address] [place] [phone] Aug, Bipolar 1 disorder, mixed F3 1.60 [facility] [address] [facility] [id number] [address] [place] [phone] Aug, Bipolar 1 disorder, mixed F3 1.60 [facility] [address] [facility] [id number] [address] [place] [phone] Aug, [facility] [address] [facility] [id number] [address] [place] [phone] Aug, Generalized anxiety disorder F41.1 [facility] [address] [facility] [id number] [address] [place] [phone] Aug, Bipolar 1 disorder, mixed F3 1.60 [facility] [address] [facility] [id number] [address] [place] [phone] Aug, Plantar wart of right foot B 07.0 [facility] [address] [facility] [id number] [address] [place] [phone] Aug, Bipolar 1 disorder, mixed F3 1.60 [facility] [address] [facility] [id number] [address] [place] [phone] Jul, Bipolar 1 disorder, mixed F3 1.60 [facility] [address] [facility] [id number] [address] [place] [phone] Jul, [facility] [address] [facility] [id number] [address] [place] [phone] Jul, Bipolar 1 disorder, mixed F3 1.60 [facility] [address] [facility] [id number] [address] [place] [phone] 09 Jul, 2017 Generalized anxiety disorder F41.1 [facility] [address] [facility] [id number] [address] [place] [phone] 07 Jul, 2017 Bipolar 1 disorder, mixed F3 1.60 [facility] [address] [facility] [id number] [address] [place] [phone] 07 Jul, 2017 Acute left-sided low back pa in with left-sided sciatica M54.42 [facility] [address] [place] [id number] [place] [phone] 05 Jul, 2017 Coccydynia M53.3 [facility] [address] [place] [id number] [address] [place] [phone] Jun, Bipolar 1 disorder, mixed F3 1.60 [facility] [address] [place] [id number] [place] [phone] Jun, Acute nasopharyngitis J00 [facility] [address] [address] Jun, Bipolar 1 disorder, mixed F3 1.60 [facility] [address] [address] Jun, Fibromyalgia M79.7 [facility] [address] [address] Jun, Bipolar 1 disorder, mixed F3 1.60 [place] [address] [address] Jun, Fibromyalgia M79.7 and Bipol ar 1 disorder, mixed F31.60 [facility] [address] [place] [id number] [place] [phone] May, Bipolar 1 disorder, mixed F3 1.60 ; Generalized anxiety disorder F41.1 and Other 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 (current) drug therapy Z79.899 [facility] [address] [place] [id number] [place] [phone] May, Bipolar 1 disorder, mixed F3 1.60 [facility] [address] [place] [id number] [address] [place] [id number] 14 May, 2017 Cough R05 and Body aches R52 [facility] [address] [place] [id number] [place] [phone] 10 Dec, 2017 Bladder spasm N32.89 and Acu te cystitis without hematuria N30.00 [facility] [address] [address] 07 May, 2017 Bipolar 1 disorder, mixed F3 1.60 [facility] [address] [place] [id number] 30 Apr, 2017 [place] [address] Apr, Major depressive disorder, r ecurrent episode, moderate F33.1 and Encounter for immunization Z23 [place] [address] Apr, Bipolar 1 disorder, mixed F3 1.60 [place] [address] [address] Apr, Bipolar 1 disorder, mixed F3 1.60 [place] [address] [address] Apr, Bipolar 1 disorder, mixed F3 1.60 [place] [address] [address] Apr, Yeast vaginitis B37.3 [place] [address] [address] 09 Apr, 2017 Bipolar 1 disorder, mixed F3 1.60 [facility] [address] [place] [id number] [place] [phone] 07 Apr, [address]03[address] for immunization Z23 [place] [address] [address] Apr, Bipolar 1 disorder, mixed F3 1.60 [facility] [address] [place] [id number] Mar, Bipolar 1 disorder, mixed F3 1.60 [place] [address] [address] Mar, Bipolar 1 disorder, mixed F3 1.60 [place] [address] [place] [id number] [place] [address] Mar, Imbalance R26.89 [address] Encount er for immunization Z23 [place] [address] [place] [id number] [place] [phone] Mar, Generalized anxiety disorder F41.1 [place] [address] [place] [id number] [place] [id number] Mar, Bipolar 1 disorder, mixed F3 1.60 [place] [address] [place] [id number] [place] [phone] Mar, Generalized anxiety disorder F41.1 [place] [address] [place] [id number] [place] [id number] Mar, Bipolar 1 disorder, mixed F3 1.60 [place] [id number] [place] [address] Mar, Bipolar 1 disorder, mixed F3 1.60 [place] [address] [place] [id number] [place] [phone] Feb, Bipolar 1 disorder, mixed F3 1.60 [place] [address] [place] [id number] [place] [phone] Feb, Bipolar 1 disorder, mixed F3 1.60 and Generalized anxiety disorder F41.1 [place] [address] [place] [id number] [place] [address] Feb, Gastritis without bleeding, unspecified chronicity, unspecified gastritis type K29.70 ; Hammer toe of right foot M20.41 and Other viral warts B07.8 [place] [address] [place] [id number] [place] [id number] Feb, Bipolar 1 disorder, mixed F3 1.60 [place] [address] [place] [id number] [place] [address] Feb, Bipolar 1 disorder, mixed F3 1.60 [facility] [address] [facility] [id number] [address] [place] [id number] 05 Feb, 2017 Bipolar 1 disorder, mixed F3 1.60 [facility] [address] [facility] [id number] [address] [place] [phone] 31 Jan, 2017 Encounter for screening mamm ogram for breast cancer Z12.31 ; Other viral warts B07.8 and Allergic rhinitis J30.9 [facility] [address] [facility] [id number] [address] [place] [address] Jan, Bipolar 1 disorder, mixed F3 1.60 [place] [address] [facility] [id number] [address] [place] [phone] Jan, Bipolar 1 disorder, mixed F3 1.60 [place] [address] [facility] [id number] [address] [place] [address] 14 Jan, 2017 [place] [address] [place] [id number] [place] [address] Jan, Bipolar 1 disorder, mixed F3 1.60 [facility] [address] [facility] [id number] [address] [place] [phone] 04 Jan, 2017 Bipolar 1 disorder, mixed F3 1.60 [place] [address] [facility] [id number] [address] [place] [address] 02 Jan, 2017 Allergic rhinitis J30.9 ; He maturia R31.9 and Colon cancer screening Z12.11 [place] [address] [facility] [id number] [address] [place] [address] Dec, Bipolar 1 disorder, mixed F3 1.60 [facility] [address] 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 [id number] [address] [place] [phone] 17 Dec, 2016 Bipolar 1 disorder, mixed F3 1.60 [place] [address] [facility] [id number] [address] [place] [address] Dec, Bipolar 1 disorder, mixed F3 1.60 [facility] [address] [facility] [id number] [address] [place] [phone] Dec, Bipolar 1 disorder, mixed F3 1.60 [facility] [address] [facility] [id number] [address] [place] [phone] Dec, Low back pain M54.5 and Recu rrent urinary tract infection N39.0 [facility] [address] [facility] [id number] [address] [place] [phone] Nov, Bipolar 1 disorder, mixed F3 1.60 [facility] [address] [facility] [id number] [address] [place] [phone] Nov, Bipolar 1 disorder, mixed F3 1.60 [facility] [address] [place] [id number] [place] [phone] Nov, Bipolar 1 disorder, mixed F3 1.60 [facility] [address] [facility] [id number] [address] [place] [address] Nov, Bipolar 1 disorder, mixed F3 1.60 [facility] [address] [facility] [id number] [address] [place] [phone] Nov, [facility] [address] [facility] [id number] [address] [place] [address] Nov, Anesthesia of skin R20.0 ; F requent UTI N39.0 ; Tobacco abuse Z72.0 and Colon cancer screening Z12.11 [facility] [address] [facility] [id number] [address] [place] [phone] Nov, Bipolar 1 disorder, mixed F3 1.60 [facility] [address] [facility] [id number] [address] [place] [phone] October, Bipolar 1 disorder, mixed F3 1.60 [facility] [address] [place] [id number] [place] [address] October, Bipolar 1 disorder, mixed F3 1.60 [facility] [address] [place] [id number] [place] [address] October, Bipolar 1 disorder, mixed F3 1.60 [facility] [address] [place] [id number] [place] [address] October, Bipolar 1 disorder, mixed F3 1.60 [facility] [address] [address] October, Bipolar 1 disorder, mixed F3 1.60 [place] [address] [place] [id number] [place] [phone] October, Cervicalgia M54.2 and Bipola r 1 disorder, mixed F31.60 [place] [address] [place] [id number] [place] [phone] October, Hypertension I10 ; Hyperlipi demia, unspecified hyperlipidemia type E78.5 and Family history of thyroid disease Z83.49 [place] [address] [place] [id number] [place] [address] October, [place] [address] [place] [id number] [place] [phone] October, Hypertension I10 ; Hyperlipi demia, unspecified hyperlipidemia type E78.5 and Family history of thyroid problem Z83.49 [place] [address] [place] [id number] [place] [address] October, Bipolar 1 disorder, mixed F3 1.60 [place] [address] [place] [id number] [place] [address] Sep, Bipolar 1 disorder, mixed F3 1.60 [place] [address] [place] [id number] [place] [address] Sep, Bipolar 1 disorder, mixed F3 1.60 [place] [address] [place] [id number] [place] [address] Sep, Bipolar 1 disorder, mixed F3 1.60 [place] [address] [address] Sep, History of colon polyps Z86. 010 and Hematochezia K92.1 [facility] [address] [place] [id number] [place], [place] [address] Sep, Major depressive disorder, r ecurrent episode, moderate F33.1 [facility] [address] [address] Sep, Bipolar 1 disorder, mixed F3 1.60 [place] [address] [address] Aug, Hot flashes due to menopause N95.1 [place] [address] [address] Aug, Bipolar 1 disorder, mixed F3 1.60 [place] [address] [address] Aug, [facility] [address] [address] Aug, Bipolar 1 disorder, mixed F3 1.60 [place] [address] [place] [id number] Aug, Bipolar 1 disorder, mixed F3 1.60 [place] [address] [address] Aug, Hot flashes due to menopause N95.1 ; Cervicalgia M54.2 and Ataxia R27.0 [facility] [address] [address] Jul, Bipolar 1 disorder, mixed F3 1.60 [place] [address] [address] Jul, Bipolar 1 disorder, mixed F3 1.60 [place] [address] [address] Jul, Bipolar 1 disorder, mixed F3 1.60 [place] [address] Jul, Bipolar 1 disorder, mixed F3 1.60 [place] [address] Jul, Bipolar 1 disorder, mixed F3 1.60 [place] [address] 08 Jul, 2016 Cervicalgia M54.2 ; Tremor R 25.1 ; Hearing abnormally acute, unspecified laterality H93.239 ; Alopecia L65.9 ; Encounter for immunization Z23 and Family history of thyroid disease Z83.49 [place] [address] Jul, Bipolar 1 disorder, mixed F3 1.60 [place] [address] Jun, [place] [address] Jun, Hearing disorder, unspecifie d laterality H93.299 [place] [address] Jun, Bipolar 1 disorder, mixed F3 1.60 [place] [address] [place] [address] Jun, Bipolar 1 disorder, mixed F3 1.60 [place] [address] [place] [address] Jun, Allergic rhinitis J30.9 [place] [address] Jun, Bipolar 1 disorder, mixed F3 1.60 [place] [address] [address] Jun, Bipolar 1 disorder, mixed F3 1.60 [facility] [address] [id number] [address] [place] [id number] Jun, Allergic rhinitis J30.9 [facility] [address] [id number] [address] [place] [id number] Jun, Allergic rhinitis J30.9 [facility] [address] [facility] [id number] [address] [place] [id number] Jun, Bipolar 1 disorder, mixed F3 1.60 [facility] [address] [id number] [address] [place] [id number] May, Bipolar 1 disorder, mixed F3 1.60 [facility] [address] [id number] [address] [place] [address] May, Bipolar 1 disorder, mixed F3 1.60 [facility] [address] [facility] [id number] [address] [place] [address] May, [facility] [address] [id number] [address] [place] [address] May, Bipolar 1 disorder, mixed F3 1.60 [facility] [address] [id number] [address] [place] [id number] May, Bipolar 1 disorder, mixed F3 1.60 [facility] [address] [facility] [id number] [address] [place] [phone] May, [facility] [address] [facility] [id number] [address] [place] [phone] May, [facility] [address] [id number] [address] [place] [phone] May, [facility] [address] [facility] [id number] [address] [place] [address] May, Abdominal pain, unspecified location R10.9 [facility] [address] [facility] [id number] [address] [place] [phone] May, [facility] [address] [facility] [id number] [address] [place] [address] Apr, Hematuria R31.9 ; Ataxia R27 .0 and Hearing loss, unspecified laterality H91.90 [facility] [address] [place] [id number] [address] [place] [address] Apr, Bipolar 1 disorder, mixed F3 1.60 [facility] [address] [place] [id number] [place] [address] Apr, Acute effusion of both middl e ears H65.193 [place] [address] [address] Apr, Hematuria R31.9 and Pyelonep hritis N12 [place] [address] [address] Apr, [place] [address] [address] Mar, Bipolar 1 disorder, mixed F3 1.60 [place] [address] [address] Mar, [place] [address] [address] Mar, Bipolar 1 disorder, mixed F3 1.60 [place] [address] [address] Mar, Bipolar 1 disorder, mixed F3 1.60 [place] [address] [address] Mar, Encounter for immunization Z 23 and Gastritis without bleeding, unspecified chronicity, unspecified gastritis type K29.70 [place] [address] [address] Mar, Bipolar 1 disorder, mixed F3 1.60 and Grief F43.20 [place] [address] [place] [id number] [address] [place] [address] Mar, Gastritis without bleeding, unspecified chronicity, unspecified gastritis type K29.70 [facility] [address] [place] [id number] [address] [place] [address] 05 Mar, 2016 Bipolar 1 disorder, mixed F3 1.60 [place] [address] [place] [id number] [address] [place] [address] 05 Mar, 2016 Gastritis without bleeding, unspecified chronicity, unspecified gastritis type K29.70 [facility] [id number] [place] [address] Mar, [place] [address] [place] [id number] [place] [address] Feb, Bipolar 1 disorder, mixed F3 1.60 [place] [address] [place] [address] Feb, Bipolar 1 disorder, mixed F3 1.60 and Grief F43.20 [place] [address] [address] Feb, Gastritis without bleeding, unspecified chronicity, unspecified gastritis type K29.70 [place] [address] [place] [id number] [address] [place] [address] 14 Feb, 2016 Bipolar 1 disorder, mixed F3 1.60 [facility] [address] [place] [id number] [address] [place] [id number] 09 Feb, 2016 Gastroesophageal reflux dise ase, esophagitis presence not specified K21.9 [facility] [address] [place] [id number] [address] [place] [address] Jan, Bipolar 1 disorder, mixed F3 1.60 [facility] [address] [place] [id number] [address] [place] [address] Jan, Bipolar 1 disorder, mixed F3 1.60 and Unsteady gait R26.81 [place] [address] [place] [id number] [address] [place] [address] Jan, Bipolar 1 disorder, mixed F3 1.60 [facility] [address] [place] [address] Jan, Bipolar 1 disorder, mixed F3 1.60 and Other 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 (current) drug therapy Z79.899 [facility] [address] [facility] [id number] [address] [place] [address] Jan, Bipolar 1 disorder, mixed F3 1.60 [facility] [address] [facility] [id number] [address] [place] [address] Jan, Bipolar 1 disorder, mixed F3 1.60 [place] [address] 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 [id number] [address] [place] [address] Jan, Bipolar 1 disorder, mixed F3 1.60 [place] [address] [place] [id number] [address] [place] [address] Dec, [place] [address] [facility] [id number] [address] [place] [address] Dec, Bipolar 1 disorder, mixed F3 1.60 ; Vitamin D deficiency, unspecified E55.9 ; H/O allergic rhinitis Z87.09 ; Other chronic pain G89.29 and Dorsalgia, unspecified M54.9 [place] [address] [place] [id number] [address] [place] [address] Dec, [place] [address] [place] [id number] [address] [place] [address] Dec, Bipolar 1 disorder, mixed F3 1.60 [place] [address] [place] [id number] [address] [place] [id number] Dec, Major depressive disorder, r ecurrent episode, moderate F33.1 [place] [address] [place] [id number] [address] [place] [address] Dec, Major depressive disorder, r ecurrent episode, moderate F33.1 [facility] [address] [facility] [id number] [address] [place] [address] Nov, [facility] [address] [facility] [id number] [address] [place] [address] Nov, Bipolar 1 disorder, mixed F3 1.60 [place] [address] [facility] [id number] [address] [place] [address] Nov, Major depressive disorder, r ecurrent episode, moderate F33.1 [place] [address] [facility] [id number] [address] [place] [address] Nov, Cervicalgia M54.2 ; Arthralg ia of hip, unspecified laterality M25.559 ; Allergic rhinitis J30.9 and Hormone replacement therapy Z79.890 [facility] [address] [facility] [id number] [address] [place] [address] Nov, Other seasonal allergic rhin itis J30.2 [place] [address] [facility] [id number] [address] [place] [id number] October, Major depressive disorder, r ecurrent episode, moderate F33.1 [place] [address] [facility] [id number] [address] [place] [address] October, Major depressive disorder, r ecurrent episode, moderate F33.1 and Arthralgia of hip, unspecified laterality M25.559 [place] [address] [facility] [id number] [address] [place] [address] October, Grief F43.20 ; Hypertension I10 ; Hyperlipidemia, unspecified hyperlipidemia type E78.5 ; Other chronic pain G89.29 and Allergic rhinitis, unspecified allergic rhinitis type J30.9 [place] [address] [facility] [id number] [address] [place] [address] October, Major depressive disorder, r ecurrent episode, moderate F33.1 [place] [address] [facility] [id number] [address] [place] [address] Sep, Major depressive disorder, r ecurrent episode, moderate F33.1 [facility] [address] [id number] [address] [place] [address] Sep, [facility] [address] [facility] [id number] [address] [place] [address] Sep, Major depressive disorder, r ecurrent episode, moderate F33.1 [facility] [address] [facility] [id number] [address] [place] [address] Sep, Grief F43.20 [facility] [address] [facility] [id number] [address] [place] [address] Aug, Major depressive disorder, r ecurrent episode, moderate F33.1 [place] [address] [facility] [id number] [address] [place] [address] Aug, Bipolar 1 disorder, mixed F3 1.60 [facility] [address] [facility] [id number] [address] [place] [address] Aug, Allergic rhinitis J30.9 ; Ce rvicalgia M54.2 and Low back pain M54.5 [facility] [address] [facility] [id number] [address] [place] [phone] Aug, Major depressive disorder, r ecurrent episode, moderate F33.1 [facility] [address] [facility] [id number] [address] [place] [address] Aug, Sinusitis J32.9 and Tobacco 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 [facility] [address] [facility] [id number] [address] [place] [phone] Aug, [facility] [address] [facility] [id number] [address] [place] [address] Aug, Depressive disorder, not els ewhere classified F32.9 ; Hormone replacement therapy Z79.[address] scan, head R93.0 [facility] [address] [facility] [id number] [address] [place] [address] Aug, Major depressive disorder, r ecurrent episode, moderate F33.1 [facility] [address] [facility] [id number] [address] [place] [id number] 17 Jul, 2015 Major depressive disorder, r ecurrent episode, moderate F33.1 [facility] [address] [facility] [id number] [address] [place] [id number] 17 Jul, 2015 Abdominal pain R10.9 and Hyp ertension I10 [facility] [address] [facility] [id number] [address] [place] [id number] 08 Jul, 2015 [facility] [address] [facility] [id number] [address] [place] [phone] Jul, Major depressive disorder, r ecurrent episode, moderate F33.1 [facility] [address] [facility] [id number] [address] [place] [phone] 04 Jul, 2015 [facility] [address] [facility] [id number] [address] [place] [address] Jul, [facility] [address] [place] [id number] [address] [place] [id number] Jun, [facility] [address] [place] [id number] [place] [address] Jun, Depressive disorder, not els ewhere classified F32.9 [facility] [address] [facility] [id number] [address] [place] [phone] Jun, [facility] [address] [place] [id number] [address] [place] [address] Jun, [facility] [address] [place] [id number] [address] [place] [address] Jun, Arthralgia of hip, unspecifi ed laterality M25.559 ; Bruising, spontaneous R23.3 and Night sweats R61 [facility] [address] [facility] [id number] [address] [place] [phone] Jun, [facility] [address] [place] [id number] [address] [place] [id number] Jun, [facility] [address] [id number] [address] [place] [address] May, [facility] [address] [id number] [address] [place] [address] May, Myalgia M79.1 and Screening, lipid Z13.220 [facility] [address] [facility] [id number] [address] [place] [address] Apr, Status post cervical spinal fusion Z98.1 ; Fibromyalgia M79.7 and Unsteady gait R26.81 [facility] [address] [id number] [address] [place] [address] Nov, [facility] [address] [facility] [id number] [address] [place] [phone] Nov, [facility] [address] [place] [id number] [address] [place] [phone] October, [facility] [address] [facility] [id number] [address] [place] [phone] October, [facility] [address] [facility] [id number] [address] [place] [phone] October, [facility] [address] [facility] [id number] [address] [place] [phone] October, [facility] [address] [facility] [id number] [address] [place] [id number] October, [facility] [address] [facility] [id number] [address] [place] [address] October, Dysuria 788.1 ; Nausea 787.0 2 and Urinary tract infection 599.0 [facility] [address] [id number] [address] [place] [phone] Sep, [facility] [address] [facility] [id number] [address] [place] [phone] Sep, [facility] [address] [facility] [id number] [address] [place] [phone] 25 Aug, 2014 [facility] [address] [id number] [facility] [place] [address] 25 Aug, 2014 [facility] [address] [id number] [address] [place] [address], [place] [address] 24 Aug, 2014 [facility] [address] [id number] [address] [place] [address], [place] [address] 24 Aug, 2014 [facility] [address] [id number] [address] [place] [address], [place] [address] 23 Aug, 2014 [facility] [address] [id number] [address] [place] [address], [place] [address] 19 Aug, 2014 [facility] [address] [id number] [address] [place] [address], [place] [address] 19 Aug, 2014 [facility] [address] [id number] [address] [place] [address], [place] [address] 19 Aug, 2014 [facility] [address] [id number] [address] [place] [address], [place] [address] 19 Aug, 2014 [facility] [address] [id number] [address] [place] [address], [place] [address] 18 Aug, 2014 [facility] [address] [id number] [address] [place] [address], [place] [address] 18 Aug, 2014 [facility] [address] [id number] [address] [place] [address], [place] [address] 13 Aug, 2014 [facility] [address] [id number] [address] [place] [address], [place] [address] 13 Aug, 2014 [facility] [address] [id number] [address] [place] [address], [place] [address] 11 Aug, 2014 [facility] [address] [id number] [address] [place] [address], [place] [address] 11 Aug, 2014 [facility] [address] [id number] [address] [place] [address], [place] [address] 06 Aug, 2014 [facility] [address] [id number] [address] [place] [address], [place] [address] 06 Aug, 2014 [facility] [address] [id number] [address] [place] [address], [place] [address] Aug, 2014 [facility] [address] [id number] [address] [place] [address], [place] [address] Aug, 2014 [facility] [address] [id number] [address] [place] [address], [place] [address] Aug, 2014 [facility] [address] [id number] [address] [place] [address], [place] [address] Aug, 2014 [facility] [address] [id number] [address] [place] [address], [place] [address] Aug, 2014 [facility] [address] [id number] [address] [place] [address], [place] [address] Jul, 2014 [facility] [address] [id number] [address] [place] [address], [place] [address] Jul, 2014 [facility] [address] [id number] [address] [place] [address], [place] [address] Jul, [facility] [address] [id number] [address] [place] [address], [place] [address] Jul, 2014 [facility] [address] [id number] [address] [place] [address], [place] [address] Jul, 2014 [facility] [address] [id number] [address] [place] [address] Jul, 2014 [facility] [address] [id number] [address] [place] [address], [place] [address] Jul, 2014 [facility] [address] [id number] [address] [place] [address], [place] [address] Jul, 2014 [facility] [address] [id number] [address] [place] [address], [place] [address] Jul, 2014 [facility] [address] [id number] [address] [place] [phone] Jul, 2014 [facility] [address] [id number] [address] [place] [address], [place] [address] Jul, 2014 [facility] [address] [id number] [address] [place] [address], [place] [address] Jul, 2014 [facility] [address] [id number] [address] [place] [address], [place] [address] Jul, 2014 [facility] [address] [id number] [address] [place] [address], [place] [address] Jul, [facility] [address] [id number] [address] [place] [address], [place] [address] Jun, [facility] [address] [id number] [address] [place] [address], [place] [address] Jun, [facility] [address] [id number] [address] [place] [address], [place] [address] Jun, [facility] [address] [id number] [address] [place] [address], [place] [address] Jun, [facility] [address] [id number] [address] [place] [address], [place] [address] Jun, [facility] [address] [id number] [address] [place] [address], [place] [address] Jun, [facility] [address] [id number] [address] [place] [address], [place] [address] May, [facility] [address] [id number] [address] [place] [address] May, [facility] [address] [id number] [address] [place] [address], [place] [address] May, [facility] [address] [id number] [address] [place] [address], [place] [address] May, [facility] [address] [id number] [address] [place] [address], [place] [address] May, [facility] [address] [id number] [address] [place] [address], [place] [address] May, [facility] [address] [id number] [address] [place] [address], [place] [address] Apr, [facility] [address] [id number] [address] [place] [address], [place] [address] Apr, [facility] [address] [id number] [address] [place] [address], [place] [address] Apr, [facility] [address] [id number] [address] [place] [address], [place] [address] Apr, [facility] [address] [id number] [address] [place] [address], [place] [address] Apr, [facility] [address] [id number] [address] [place] [address], [place] [address] Apr, [facility] [address] [id number] [address] [place] [address], [place] [address] Mar, [facility] [address] [id number] [address] [place] [address], [place] [address] Mar, [facility] [address] [id number] [address] [place] [address], [place] [address] Mar, [facility] [address] [id number] [address] [place] [address], [place] [address] Mar, [facility] [address] [id number] [address] [place] [address], [place] [address] Mar, [facility] [address] [id number] [address] [place] [address], [place] [address] Mar, [facility] [address] [id number] [address] [place] [address], [place] [address] Mar, [facility] [address] [id number] [address] [place] [address], [place] [address] Mar, [facility] [address] [id number] [address] [place] [address], [place] [address] Mar, [facility] [address] [id number] [address] [place] [address], [place] [address] Mar, [facility] [address] [id number] [address] [place] [address], [place] [address] Mar, [facility] [address] [id number] [address] [place] [address], [place] [address] Mar, [facility] [address] [id number] [address] [place] [address], [place] [address] 30 Feb, 2014 [facility] [address] [id number] [address] [place] [address], [place] [address] 29 Feb, 2014 [facility] [address] [id number] [address] [place] [address], [place] [address] Feb, [facility] [address] [id number] [address] [place] [address], [place] [address] Feb, [facility] [address] [id number] [address] [place] [address], [place] [address] Feb, [facility] [address] [id number] [address] [place] [address], [place] [address] Feb, [facility] [address] [id number] [address] [place] [address], [place] [address] Feb, [facility] [address] [id number] [address] [place] [address], [place] [address] Jan, [facility] [address] [id number] [address] [place] [address], [place] [address] Jan, [facility] [address] [id number] [address] [place] [address], [place] [address] Jan, [facility] [address] [id number] [address] [place] [address], [place] [address] Dec, [facility] [address] [id number] [address] [place] [address], [place] [address] Dec, [facility] [address] [id number] [facility] [place] [address] Dec, [facility] [address] [id number] [address] [place] [address], [place] [address] Dec, [facility] [address] [id number] [address] [place] [address], [place] [address] Sep, [facility] [address] [id number] [address] [place] [address], [place] [address] Sep, [facility] [address] [id number] [address] [place] [address], [place] [address] Sep, [facility] [address] [id number] [address] [place] [address], [place] [address] Sep, [facility] [address] [id number] [address] [place] [address], [place] [address] Sep, [facility] [address] [id number] [address] [place] [address], [place] [address] Sep, [facility] [address] [id number] [address] [place] [address], [place] [address] Sep, [facility] [address] [id number] [address] [place] [address], [place] [address] Sep, [facility] [address] [id number] [address] [place] [address], [place] [address] Aug, [facility] [address] [id number] [address] [place] [address], [place] [address] Aug, [facility] [address] [id number] [address] [place] [address], [place] [address] May, [facility] [address] [id number] [address] [place] [address], [place] [address] May, [facility] [address] [id number] [address] [place] [address], [place] [address] Apr, [facility] [address] [id number] [address] [place] [address], [place] [address] Apr, [facility] [address] [id number] [address] [place] [address], [place] [address] Apr, [facility] [address] [id number] [address] [place] [address], [place] [address] Apr, [facility] [address] [id number] [address] [place] [address], [place] [address] Apr, [facility] [address] [id number] [address] [place] [address], [place] [address] Apr, [facility] [address] [id number] [address] [place] [address], [place] [address] May, [facility] [address] [id number] [address] [place] [address], [place] [address] 18 May, 2012 [facility] [address] [id number] [address] [place] [address], [place] [address] 15 May, 2012 [facility] [address] [id number] [address] [place] [address], [place] [address] 15 May, 2012 [facility] [address] [id number] [address] [place] [address], [place] [address] May, [facility] [address] [id number] [address] [place] [address], [place] [address] May, [facility] [address] [id number] [address] [place] [address], [place] [address] Apr, [facility] [address] [id number] [address] [place] [address] Apr, [facility] [address] [id number] [address] [place] [address], [place] [address] Apr, [facility] [address] [id number] [address] [place] [address], [place] [address] Apr, [facility] [address] [id number] [address] [place] [address], [place] [address] Apr, [facility] [address] [id number] [address] [place] [id number] 08 Apr, 2012 [facility] [address] [id number] [address] [place] [address], [place] [address] 07 Apr, 2012 [facility] [address] [id number] [address] [place] [address] Apr, [facility] [address] [id number] [address] [place] [address] Apr, [facility] [address] [id number] [address] [place] [address] Apr, [facility] [address] [id number] [address] [place] [address], [place] [address] Mar, [facility] [address] [id number] [address] [place] [address], [place] [address] Mar, [facility] [address] [id number] [address] [place] [address] Mar, [facility] [address] [id number] [address] [place] [address] Mar, [facility] [address] [id number] [address] [place] [address] Mar, [facility] [address] [id number] [address] [place] [address] Mar, [facility] [address] [id number] [address] [place] [address] Mar, [facility] [address] [id number] [address] [place] [address] Mar, [facility] [address] [id number] [address] [place] [address] Mar, [facility] [address] [id number] [address] [place] [address] 25 Feb, 2012 [facility] [address] [id number] [address] [place] [id number] 16 Sep2011 [facility] [address] [id number] [facility] [place] [address] Feb, [facility] [address] [id number] [facility] [place] [address] Jan, [facility] [address] [id number] [facility] [place] [address] Jan, [facility] [address] [id number] [address] [place] [address], [place] [address] Jan, [facility] [address] [id number] [address] [place] [address], [place] [address] Jan, [facility] [address] [id number] [address] [place] [address], [place] [address] Jan, [facility] [address] [id number] [address] [place] [address], [place] [address] Jan, [facility] [address] [id number] [address] [place] [address], [place] [address] Jan, [facility] [address] [id number] [address] [place] [address], [place] [address] Jan, [facility] [address] [id number] [address] [place] [address], [place] [address] Jan, [facility] [address] [id number] [address] [place] [address], [place] [address] Jan, [facility] [address] [id number] [address] [place] [address], [place] [address] Dec, [facility] [address] [id number] [address] [place] [address], [place] [address] Dec, [facility] [address] [id number] [address] [place] [address], [place] [address] Dec, [facility] [address] [id number] [address] [place] [address], [place] [address] Dec, [facility] [address] [id number] [address] [place] [address], [place] [address] Nov, [facility] [address] [id number] [address] [place] [address], [place] [address] Nov, [facility] [address] [id number] [address] [place] [address], [place] [address] Nov, [facility] [address] [id number] [address] [place] [address], [place] [address] October, [facility] [address] [id number] [address] [place] [address], [place] [address] October, [facility] [address] [id number] [address] [place] [address], [place] [address] October, [facility] [address] [id number] [address] [place] [address], [place] [address] October, [facility] [address] [id number] [address] [place] [address], [place] [address] October, [facility] [address] [id number] [address] [place] [address], [place] [address] October, [facility] [address] [id number] [address] [place] [address], [place] [address] Aug, [facility] [address] [id number] [address] [place] [address], [place] [address] Mar, [facility] [address] [id number] [address] [place] [address], [place] [address] Nov, [facility] [address] [id number] [address] [place] [address], [place] [address] May, [facility] [address] [id number] [address] [place] [address], [place] [address] May, [facility] [address] [id number] [address] [place] [address], [place] [address] Apr, [facility] [address] [id number] [address] [place] [address], [place] [address] 15 Mar, 2010 [facility] [address] [id number] [address] [place] [address] 15 Mar, 2010 IMMUNIZATIONS No Known Immunizations SOCIAL HISTORY Never Assessed REASON FOR VISIT Med change PLAN OF CARE VITAL SIGNS MEDICATIONS Medication Instructions Dosage Frequency Start Date End Date Duration S tat Flunisolide 25 MCG/ACT (0.025%) Nasally Twice a day 2 sprays in each nostril 12h 24 Sep, 2017 30 day(s) Active RESULTS No Results PROCEDURES [...]
--- OUTSIDE RECORDS SUMMARY | 2019-06-19 05:39 | XMS REPORT ---
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 Role Phone JOHN MORTON Unavailable PROBLEMS Type Condition ICD9-CM Code AXP39-FG Code Onset Dates Condition S tatus SNOMED Code Problem Hormone replacement therapy Z79.890 Ac tive 661443685 Problem Abnormal CT scan, head R93.0 Active 346216578 Problem Sensorineural hearing loss (SNHL) of both ears H90 .3 Active 631192712 Problem History of colon polyps Z86.010 Active 019565460 Problem Bruising, spontaneous R23.3 Active 555976569 Problem Generalized anxiety disorder F41.1 A ctive 04173285 Problem Arthralgia of hip, unspecified laterality M25.559 Active 47043045 Problem Hematuria, unspecified type R31.9 Ac tive 73779976 Problem Imbalance R26.89 Active 005147943 Problem Hammer toe of right foot M20.41 Activ e 741803167 Problem Plantar wart of right foot B07.0 Act mitchell [id number] Problem Sciatica of left side M54.32 Active 02096064 Problem Hyperlipidemia, unspecified hyperlipidemia type E7 8.5 Active 88908653 Problem Hypertension I10 Active 5646820 3 Problem Night sweats R61 Active 2090246 0 Problem Fibromyalgia M79.7 Active 3707827 7 Problem Major depressive disorder, recurrent episode, moderate F33.1 Active 209659322 Problem Acute left-sided low back pain with left-sided sciatica M54.42 Active 658530087 Problem Bladder spasm N32.89 Active 512798 006 Problem Gastritis without bleeding, unspecified chronicity, unspecified gastritis type K29.70 Active 523300588 Problem Bipolar 1 disorder, mixed F31.60 Acti ve 81714982 Problem Grief F43.20 Active 23106547 Problem Other chronic pain G89.29 Active 8 4356483 Problem Allergic rhinitis J30.9 Active 61 383998 Problem Hot flashes due to menopause N95.1 A ctive 117247314 Problem Ataxia R27.0 Active 44126878 Problem Hearing loss, unspecified laterality H91.90 Active 90153530 ALLERGIES No Information ENCOUNTERS Encounter Location Date Diagnosis [facility] [address] [facility] [id number] [address] [place] [address] Mar, [facility] [address] [facility] [id number] [address] [place] [phone] Jan, [facility] [address] [facility] [id number] [address] [place] [address] Jan, [facility] [address] [facility] [id number] [address] [place] [address] Jan, [facility] [address] [facility] [id number] [address] [place] [address] Jan, [facility] [address] [facility] [id number] [address] [place] [address] Dec, Bipolar 1 disorder, mixed F3 1.60 ; Generalized anxiety disorder F41.1 and 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 [facility] [address] [place] [id number] [address] [place] [address] Dec, Other care home (current) dr ug therapy Z79.899 [facility] [address] [facility] [id number] [address] [place] [address] Dec, Bipolar 1 disorder, mixed F3 1.60 [facility] [address] [facility] [id number] [address] [place] [address] Dec, Bipolar 1 disorder, mixed F3 1.60 [facility] [address] [facility] [id number] [address] [place] [address] Nov, Bipolar 1 disorder, mixed F3 1.60 [facility] [address] [facility] [id number] [address] [place] [address] Nov, Bipolar 1 disorder, mixed F3 1.60 [facility] [address] [facility] [id number] [address] [place] [address] 13 Nov, 2017 Bipolar 1 disorder, mixed F3 1.60 [place] [address] [facility] [id number] [address] [place] [address] 11 Nov, 2017 Allergic rhinitis J30.9 [facility] [address] [facility] [id number] [address] [place] [address] Nov, Allergic rhinitis J30.9 [facility] [address] [facility] [id number] [address] [place] [address] Nov, [place] [address] [facility] [id number] [address] [place] [address] Nov, Bipolar 1 disorder, mixed F3 1.60 [place] [address] [address] Nov, Fibromyalgia M79.7 and Aller gic rhinitis J30.9 [place] [address] [place] [id number] [address] [place] [address] October, Bipolar 1 disorder, mixed F3 1.60 [facility] [address] [address] October, Acute nasopharyngitis J00 [facility] [address] [place] [address] October, Bitten or stung by nonvenomo us insect and other nonvenomous arthropods, initial encounter W57.XXXA and Insect bite (nonvenomous) of abdominal wall, initial encounter S30.861A [place] [address] [place] [id number] [address] [place] [address] October, Insect bite (nonvenomous) of abdominal wall, initial encounter S30.861A ; Bitten or stung by nonvenomous insect and other nonvenomous arthropods, initial encounter W57.XXXA ; Allergic rhinitis J30.9 and Low back pain M54.5 [place] [address] [place] [address] [place] [address] October, Bipolar 1 disorder, mixed F3 1.60 [facility] [address] [id number] [address] [place] [address] October, [facility] [address] [id number] [address] [place] [address] October, [facility] [address] [facility] [id number] [address] [place] [address] October, Bipolar 1 disorder, mixed F3 1.60 [facility] [address] [id number] [address] [place] [address] Sep, Bipolar 1 disorder, mixed F3 1.60 [facility] [address] [facility] [id number] [address] [place] [address] Sep, Other chronic pain G89.29 [facility] [address] [facility] [id number] [address] [place] [address] Sep, [facility] [address] [id number] [address] [place] [address] Sep, Bipolar 1 disorder, mixed F3 1.60 [facility] [address] [facility] [id number] [address] [place] [address] Sep, Allergic rhinitis J30.9 and Sciatica of left side M54.32 [facility] [address] [facility] [id number] [address] [place] [address] Sep, Bipolar 1 disorder, mixed F3 1.60 [facility] [address] [id number] [address] [place] [address] Sep, Bipolar 1 disorder, mixed F3 1.60 and Generalized anxiety disorder F41.1 [facility] [address] [facility] [id number] [address] [place] [address] Aug, [facility] [address] [facility] [id number] [address] [place] [address] Aug, Bipolar 1 disorder, mixed F3 1.60 [facility] [address] [id number] [address] [place] [address] Aug, Bipolar 1 disorder, mixed F3 1.60 [facility] [address] [id number] [address] [place] [address] Aug, [facility] [address] [facility] [id number] [address] [place] [address] Aug, Generalized anxiety disorder F41.1 [facility] [address] [facility] [id number] [address] [place] [address] Aug, Bipolar 1 disorder, mixed F3 1.60 [facility] [address] [facility] [id number] [address] [place] [address] Aug, Plantar wart of right foot B 07.0 [facility] [address] [facility] [id number] [address] [place] [address] Aug, Bipolar 1 disorder, mixed F3 1.60 [facility] [address] [facility] [id number] [address] [place] [address] Jul, Bipolar 1 disorder, mixed F3 1.60 [facility] [address] [facility] [id number] [address] [place] [address] Jul, [facility] [address] [facility] [id number] [address] [place] [address] 14 Jul, 2017 Bipolar 1 disorder, mixed F3 1.60 [facility] [address] [facility] [id number] [address] [place] [address] Jul, Generalized anxiety disorder F41.1 [facility] [address] [id number] [address] [place] [address] Jul, Bipolar 1 disorder, mixed F3 1.60 [facility] [address] [facility] [id number] [address] [place] [address] 07 Jul, 2017 Acute left-sided low back pa in with left-sided sciatica M54.42 [facility] [address] [address] 05 Jul, 2017 Coccydynia M53.3 [place] [address] [address] Jun, Bipolar 1 disorder, mixed F3 1.60 [facility] [address] [address] Jun, Acute nasopharyngitis J00 [place] [address] [address] Jun, Bipolar 1 disorder, mixed F3 1.60 [place] [address] [address] Jun, Fibromyalgia M79.7 [place] [address] [address] Jun, Bipolar 1 disorder, mixed F3 1.60 [place] [address] [address] Jun, Fibromyalgia M79.7 and Bipol ar 1 disorder, mixed F31.60 [place] [address] [address] May, Bipolar 1 disorder, mixed F3 1.60 ; Generalized anxiety disorder F41.1 and 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 [place] [address] [address] May, Bipolar 1 disorder, mixed F3 1.60 [facility] [address] [address] 14 May, 2017 Cough R05 and Body aches R52 [facility] [address] [address] 10 May, 2017 Bladder spasm N32.89 and Acu te cystitis without hematuria N30.00 [place] [address] [address] 07 May, 2017 Bipolar 1 disorder, mixed F3 1.60 [facility] [address] [place] [id number] [address] [place] [address] Apr, [facility] [address] Apr, Major depressive disorder, r ecurrent episode, moderate F33.1 and Encounter for immunization Z23 [facility] [address] [place] [address] Apr, Bipolar 1 disorder, mixed F3 1.60 [facility] [address] [address] Apr, Bipolar 1 disorder, mixed F3 1.60 [place] [address] 16 Apr, 2017 Bipolar 1 disorder, mixed F3 1.60 [facility] [address] [address] Apr, Yeast vaginitis B37.3 [facility] [address] [address] Apr, Bipolar 1 disorder, mixed F3 1.60 [facility] [address] [place] [id number] [address] [place] [address] 07 Apr, 2017 Cellulitis L03.[address] for immunization Z23 [facility] [address] [place] [id number] [address] [place] [address] Apr, Bipolar 1 disorder, mixed F3 1.60 [facility] [address] [place] [id number] [address] [place] [address] Mar, Bipolar 1 disorder, mixed F3 1.60 [place] [address] [place] [id number] [place] [address] Mar, Bipolar 1 disorder, mixed F3 1.60 [facility] [address] [place] [id number] [address] [place] [address] Mar, Imbalance R26.89 and Encount er for immunization Z23 [place] [address] [place] [id number] [address] [place] [address] Mar, Generalized anxiety disorder F41.1 [facility] [address] [facility] [id number] [address] [place] [address] Mar, Bipolar 1 disorder, mixed F3 1.60 [place] [address] [place] [id number] [address] [place] [address] Mar, Generalized anxiety disorder F41.1 [place] [address] [place] [id number] [address] [place] [address] Mar, Bipolar 1 disorder, mixed F3 1.60 [place] [address] [place] [id number] [address] [place] [address] Mar, Bipolar 1 disorder, mixed F3 1.60 [place] [address] [place] [address] Feb, Bipolar 1 disorder, mixed F3 1.60 [place] [address] [place] [address] Feb, Bipolar 1 disorder, mixed F3 1.60 and Generalized anxiety disorder F41.1 [place] [address] [place] [id number] [address] [place] [address] Feb, Gastritis without bleeding, unspecified chronicity, unspecified gastritis type K29.70 ; Hammer toe of right foot M20.41 and Other viral warts B07.8 [place] [address] [place] [id number] [address] [place] [address] Feb, Bipolar 1 disorder, mixed F3 1.60 [place] [address] [place] [id number] [address] [place] [address] 13 Feb, 2017 Bipolar 1 disorder, mixed F3 1.60 [place] [address] [place] [id number] [address] [place] [address] 05 Feb, 2017 Bipolar 1 disorder, mixed F3 1.60 [place] [address] [facility] [id number] [address] [place] [address] 31 Jan, 2017 Encounter for screening mamm ogram for breast cancer Z12.31 ; Other viral warts B07.8 and Allergic rhinitis J30.9 [facility] [address] [facility] [id number] [address] [place] [address] Jan, Bipolar 1 disorder, mixed F3 1.60 [place] [address] [facility] [id number] [address] [place] [address] Jan, Bipolar 1 disorder, mixed F3 1.60 [place] [address] [facility] [id number] [address] [place] [address] Jan, [place] [address] [facility] [id number] [address] [place] [address] Jan, Bipolar 1 disorder, mixed F3 1.60 [place] [address] [facility] [id number] [address] [place] [address] Jan, Bipolar 1 disorder, mixed F3 1.60 [place] [address] [facility] [id number] [address] [place] [address] Jan, Allergic rhinitis J30.9 ; He maturia R31.9 and Colon cancer screening Z12.11 [place] [address] [facility] [id number] [address] [place] [address] Dec, Bipolar 1 disorder, mixed F3 1.60 [place] [address] [facility] [id number] [address] [place] [address] Dec, Bipolar 1 disorder, mixed F3 1.60 ; Generalized anxiety disorder F41.1 and Other care home (current) drug therapy Z79.899 [place] [address] [facility] [id number] [address] [place] [address] Dec, Bipolar 1 disorder, mixed F3 1.60 [place] [address] [facility] [id number] [address] [place] [address] Dec, Bipolar 1 disorder, mixed F3 1.60 [place] [address] [facility] [id number] [address] [place] [address] Dec, Bipolar 1 disorder, mixed F3 1.60 [facility] [address] [facility] [id number] [address] [place] [address] Dec, Low back pain M54.5 and Recu rrent urinary tract infection N39.0 [facility] [address] [place] [id number] [address] [place] [address] Nov, Bipolar 1 disorder, mixed F3 1.60 [facility] [address] [facility] [id number] [address] [place] [address] Nov, Bipolar 1 disorder, mixed F3 1.60 [place] [address] [place] [id number] [address] [place] [address] Nov, Bipolar 1 disorder, mixed F3 1.60 [place] [address] [place] [id number] [address] [place] [address] Nov, Bipolar 1 disorder, mixed F3 1.60 [facility] [address] [place] [id number] [address] [place] [address] Nov, [facility] [address] [place] [id number] [address] [place] [address] Nov, Anesthesia of skin R20.0 ; F requent UTI N39.0 ; Tobacco abuse Z72.0 and Colon cancer screening Z12.11 [facility] [address] [place] [id number] [address] [place] [address] Nov, Bipolar 1 disorder, mixed F3 1.60 [facility] [address] [facility] [id number] [address] [place] [address] October, Bipolar 1 disorder, mixed F3 1.60 [facility] [address] [place] [id number] [address] [place] [address] October, Bipolar 1 disorder, mixed F3 1.60 [facility] [address] [place] [id number] [address] [place] [address] October, Bipolar 1 disorder, mixed F3 1.60 [facility] [address] [place] [id number] [address] [place] [address] October, Bipolar 1 disorder, mixed F3 1.60 [facility] [address] [place] [id number] [address] [place] [address] October, Bipolar 1 disorder, mixed F3 1.60 [place] [address] [place] [id number] [place] [address] October, Cervicalgia M54.2 and Bipola r 1 disorder, mixed F31.60 [place] [address] [place] [id number] [address] [place] [address] October, Hypertension I10 ; Hyperlipi demia, unspecified hyperlipidemia type E78.5 and Family history of thyroid disease Z83.49 [place] [address] [address] October, [place] [address] [address] October, Hypertension I10 ; Hyperlipi demia, unspecified hyperlipidemia type E78.5 and Family history of thyroid problem Z83.49 [place] [address] [place] [id number] [address] [place] [address] October, Bipolar 1 disorder, mixed F3 1.60 [place] [address] [place] [id number] [address] [place] [address] Sep, Bipolar 1 disorder, mixed F3 1.60 [place] [address] [place] [id number] [address] [place] [address] Sep, Bipolar 1 disorder, mixed F3 1.60 [place] [address] [place] [id number] [address] [place] [address] Sep, Bipolar 1 disorder, mixed F3 1.60 [place] [address] [place] [id number] [address] [place] [address] Sep, History of colon polyps Z86. 010 and Hematochezia K92.1 [facility] [address] [place] [address] Sep, Major depressive disorder, r ecurrent episode, moderate F33.1 [facility] [address] [place] [id number] [address] [place] [address] Sep, Bipolar 1 disorder, mixed F3 1.60 [facility] [address] [place] [id number] [address] [place], [place] [address] Aug, Hot flashes due to menopause N95.1 [facility] [address] [address] Aug, Bipolar 1 disorder, mixed F3 1.60 [place] [address] [address] Aug, [place] [address] [address] Aug, Bipolar 1 disorder, mixed F3 1.60 [place] [address] [address] Aug, Bipolar 1 disorder, mixed F3 1.60 [place] [address] [address] Aug, Hot flashes due to menopause N95.1 ; Cervicalgia M54.2 and Ataxia R27.0 [facility] [address] [place] [address] Jul, Bipolar 1 disorder, mixed F3 1.60 [place] [address] [place] [id number] [address] [place] [address] Jul, Bipolar 1 disorder, mixed F3 1.60 [facility] [address] [place] [id number] [address] [place], [place] [id number] Jul, Bipolar 1 disorder, mixed F3 1.60 [facility] [address] [place] [id number] [address] [place] [address] Jul, Bipolar 1 disorder, mixed F3 1.60 [facility] [address] [address] 10 Jul, 2016 Bipolar 1 disorder, mixed F3 1.60 [place] [address] [address] 08 Jul, 2016 Cervicalgia M54.2 ; Tremor R 25.1 ; Hearing abnormally acute, unspecified laterality H93.239 ; Alopecia L65.9 ; Encounter for immunization Z23 and Family history of thyroid disease Z83.49 [place] [address] [address] Jul, Bipolar 1 disorder, mixed F3 1.60 [place] [address] [address] Jun, [place] [address] [place] [address] Jun, Hearing disorder, unspecifie d laterality H93.299 [place] [address] [address] Jun, Bipolar 1 disorder, mixed F3 1.60 [place] [address] [place] [id number] Jun, Bipolar 1 disorder, mixed F3 1.60 [place] [address] [address] Jun, Allergic rhinitis J30.9 [place] [address] [address] Jun, Bipolar 1 disorder, mixed F3 1.60 [place] [address] [address] Jun, Bipolar 1 disorder, mixed F3 1.60 [place] [address] [address] Jun, Allergic rhinitis J30.9 [place] [address] [facility] [id number] [address] [place] [id number] Jun, Allergic rhinitis J30.9 [facility] [address] [place] [address] Jun, Bipolar 1 disorder, mixed F3 1.60 [facility] [address] [address] May, Bipolar 1 disorder, mixed F3 1.60 [facility] [address] [place] [id number] [address] [place] [id number] May, Bipolar 1 disorder, mixed F3 1.60 [facility] [address] [address] May, [facility] [address] [place] [id number] [place] [id number] May, Bipolar 1 disorder, mixed F3 1.60 [facility] [address] [place] [id number] [address] [place] [id number] May, Bipolar 1 disorder, mixed F3 1.60 [facility] [address] [address] May, [facility] [address] [address] May, [facility] [address] [address] May, [facility] [address] [address] May, Abdominal pain, unspecified location R10.9 [facility] [address] [address] May, [facility] [address] [place] [id number] [address] [place], [place] [id number] Apr, Hematuria R31.9 ; Ataxia R27 .0 and Hearing loss, unspecified laterality H91.90 [facility] [address] [address] Apr, Bipolar 1 disorder, mixed F3 1.60 [facility] [address] [address] Apr, Acute effusion of both middl e ears H65.193 [facility] [address] [address] 10 Apr, 2016 Hematuria R31.9 and Pyelonep hritis N12 [place] [address] [address] Apr, [place] [address] [address] Mar, Bipolar 1 disorder, mixed F3 1.60 [place] [address] [address] Mar, [place] [address] [address] [address] Mar, Bipolar 1 disorder, mixed F3 1.60 [place] [address] [address] Mar, Bipolar 1 disorder, mixed F3 1.60 [place] [address] [address] Mar, Encounter for immunization Z 23 and Gastritis without bleeding, unspecified chronicity, unspecified gastritis type K29.70 [facility] [address] [address] Mar, Bipolar 1 disorder, mixed F3 1.60 and Grief F43.20 [place] [address] [address] Mar, Gastritis without bleeding, unspecified chronicity, unspecified gastritis type K29.70 [place] [address] [address] Mar, Bipolar 1 disorder, mixed F3 1.60 [facility] [address] [facility] [id number] [address] [place] [address] 05 Mar, 2016 Gastritis without bleeding, unspecified chronicity, unspecified gastritis type K29.70 [facility] [address] [facility] [id number] [address] [place], [place] [address] Mar, [facility] [address] [place] [id number] [place] [address] Feb, Bipolar 1 disorder, mixed F3 1.60 [facility] [address] [place] [id number] [address] [place] [address] Feb, Bipolar 1 disorder, mixed F3 1.60 and Grief F43.20 [facility] [address] [place] [id number] [address] [place] [address] Feb, Gastritis without bleeding, unspecified chronicity, unspecified gastritis type K29.70 [facility] [address] [place] [id number] [address] [place] [id number] 14 Feb, 2016 Bipolar 1 disorder, mixed F3 1.60 [facility] [address] [facility] [id number] [address] [place] [id number] 09 Feb, 2016 Gastroesophageal reflux dise ase, esophagitis presence not specified K21.9 [facility] [address] [place] [id number] [address] [place] [address] Jan, Bipolar 1 disorder, mixed F3 1.60 [facility] [address] [place] [id number] [address] [place] [address] Jan, Bipolar 1 disorder, mixed F3 1.60 and Unsteady gait R26.81 [facility] [address] [place] [id number] [address] [place] [address] Jan, Bipolar 1 disorder, mixed F3 1.60 [facility] [address] [facility] [id number] [address] [place] [address] Jan, Bipolar 1 disorder, mixed F3 1.60 and 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 [facility] [address] [facility] [id number] [address] [place] [address] Jan, Bipolar 1 disorder, mixed F3 1.60 [place] [address] [facility] [id number] [address] [place] [address] Jan, Bipolar 1 disorder, mixed F3 1.60 [place] [address] [place] [id number] [address] [place] [address] Jan, Bipolar 1 disorder, mixed F3 1.60 ; Grief F43.20 and 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 [place] [address] [place] [id number] [address] [place] [address] Jan, Bipolar 1 disorder, mixed F3 1.60 [place] [address] [place] [id number] [address] [place] [address] Dec, [place] [address] [address] Dec, Bipolar 1 disorder, mixed F3 1.60 ; Vitamin D deficiency, unspecified E55.9 ; H/O allergic rhinitis Z87.09 ; Other chronic pain G89.29 and Dorsalgia, unspecified M54.9 [place] [address] [place] [id number] [address] [place] [address] Dec, [place] [address] [place] [id number] [address] [place] [address] Dec, Bipolar 1 disorder, mixed F3 1.60 [place] [address] [place] [id number] [address] [place] [address] Dec, Major depressive disorder, r ecurrent episode, moderate F33.1 [place] [address] [place] [id number] [address] [place] [address] Dec, Major depressive disorder, r ecurrent episode, moderate F33.1 [place] [address] [place] [id number] [address] [place] [address] Nov, [place] [address] [place] [id number] [address] [place] [address] Nov, Bipolar 1 disorder, mixed F3 1.60 [place] [address] [place] [id number] [address] [place] [address] Nov, Major depressive disorder, r ecurrent episode, moderate F33.1 [place] [address] [place] [id number] [address] [place] [address] Nov, Cervicalgia M54.2 ; Arthralg ia of hip, unspecified laterality M25.559 ; Allergic rhinitis J30.9 and Hormone replacement therapy Z79.890 [facility] [address] [facility] [id number] [address] [place] [address] Nov, Other seasonal allergic rhin itis J30.2 [place] [id number] [place] [address] October, Major depressive disorder, r ecurrent episode, moderate F33.1 [place] [id number] [place] [phone] October, Major depressive disorder, r ecurrent episode, moderate F33.1 and Arthralgia of hip, unspecified laterality M25.559 [place] [address] [place] [address] October, Grief F43.20 ; Hypertension I10 ; Hyperlipidemia, unspecified hyperlipidemia type E78.5 ; Other chronic pain G89.29 and Allergic rhinitis, unspecified allergic rhinitis type J30.9 [place] [address] [facility] [id number] [address] [place] [address] October, Major depressive disorder, r ecurrent episode, moderate F33.1 [place] [address] [place] [id number] [address] [place] [address] Sep, Major depressive disorder, r ecurrent episode, moderate F33.1 [place] [address] [place] [id number] [address] [place] [address] Sep, [place] [address] [facility] [id number] [address] [place] [address] Sep, Major depressive disorder, r ecurrent episode, moderate F33.1 [place] [address] [place] [id number] [address] [place] [address] Sep, Grief F43.20 [place] [address] [place] [id number] [address] [place] [address] Aug, Major depressive disorder, r ecurrent episode, moderate F33.1 [place] [address] [place] [id number] [place] [address] Aug, Bipolar 1 disorder, mixed F3 1.60 [place] [address] [place] [id number] [place] [address] Aug, Allergic rhinitis J30.9 ; Ce rvicalgia M54.2 and Low back pain M54.5 [place] [address] [place] [address] Aug, Major depressive disorder, r ecurrent episode, moderate F33.1 [facility] [address] [place] [id number] [address] [place] [address] Aug, Sinusitis J32.9 and Tobacco 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 [facility] [address] [place] [id number] [address] [place] [address] Aug, [facility] [address] [address] Aug, Depressive disorder, not els ewhere classified F32.9 ; Hormone replacement therapy Z79.[address] scan, head R93.0 [place] [address] [place] [id number] [address] [place] [address] Aug, Major depressive disorder, r ecurrent episode, moderate F33.1 [facility] [address] [place] [id number] [address] [place] [address] Jul, Major depressive disorder, r ecurrent episode, moderate F33.1 [facility] [address] [facility] [id number] [address] [place] [id number] 17 Jul, 2015 Abdominal pain R10.9 and Hyp ertension I10 [facility] [address] [facility] [id number] [address] [place] [address] 08 Jul, 2015 [facility] [address] [place] [id number] [place] [address] Jul, Major depressive disorder, r ecurrent episode, moderate F33.1 [facility] [address] [facility] [id number] [address] [place] [address] 04 Jul, 2015 [facility] [address] [facility] [id number] [place] [address] Jul, [facility] [address] [address] Jun, [facility] [address] [address] Jun, Depressive disorder, not els ewhere classified F32.9 [facility] [address] [place] [id number] [place] [address] Jun, [facility] [address] [place] [id number] [place] [address] Jun, [facility] [address] [address] Jun, Arthralgia of hip, unspecifi ed laterality M25.559 ; Bruising, spontaneous R23.3 and Night sweats R61 [facility] [address] [facility] [id number] [address] [place] [address] Jun, [facility] [address] [place] [id number] [address] [place] [address] Jun, [facility] [address] [place] [id number] [address] [place] [address] May, [facility] [address] [facility] [id number] [address] [place] [address] 15 May, 2015 Myalgia M79.1 and Screening, lipid Z13.220 [facility] [address] [facility] [id number] [address] [place] [address] Apr, Status post cervical spinal fusion Z98.1 ; Fibromyalgia M79.7 and Unsteady gait R26.81 [facility] [address] [id number] [address] [place] [address] Nov, [facility] [address] [id number] [address] [place] [address] Nov, [facility] [address] [facility] [id number] [address] [place] [address] October, [facility] [address] [facility] [id number] [address] [place] [phone] October, [facility] [address] [facility] [id number] [address] [place] [phone] October, [facility] [address] [facility] [id number] [address] [place] [phone] October, [facility] [address] [facility] [id number] [address] [place] [id number] October, [facility] [address] [facility] [id number] [address] [place] [address] October, Dysuria 788.1 ; Nausea 787.0 2 and Urinary tract infection 599.0 [facility] [address] [id number] [address] [place] [address] Sep, [facility] [address] [facility] [id number] [address] [place] [address] Sep, [facility] [address] [facility] [id number] [address] [place] [id number] Aug, [facility] [address] [facility] [id number] [address] [place] [id number] Aug, [facility] [address] [id number] [address] [place] [address], [place] [address] 24 Aug, 2014 [facility] [address] [id number] [address] [place] [address], [place] [address] 24 Aug, 2014 [facility] [address] [id number] [address] [place] [address], [place] [address] 23 Aug, 2014 [facility] [address] [id number] [address] [place] [address], [place] [address] 19 Aug, 2014 [facility] [address] [id number] [address] [place] [address], [place] [address] 19 Aug, 2014 [facility] [address] [id number] [address] [place] [address], [place] [id number] 19 Aug, 2014 [facility] [address] [id number] [address] [place] [address], [place] [address] 19 Aug, 2014 [facility] [address] [id number] [address] [place] [address], [place] [address] 18 Aug, 2014 [facility] [address] [id number] [address] [place] [address], [place] [address] 18 Aug, 2014 [facility] [address] [id number] [address] [place] [address], [place] [address] 13 Aug, 2014 [facility] [address] [id number] [address] [place] [address], [place] [address] 13 Aug, 2014 [facility] [address] [id number] [address] [place] [address], [place] [address] 11 Aug, 2014 [facility] [address] [id number] [address] [place] [address], [place] [address] 11 Aug, 2014 [facility] [address] [id number] [address] [place] [address], [place] [address] 06 Aug, 2014 [facility] [address] [id number] [address] [place] [address], [place] [address] 06 Aug, 2014 [facility] [address] [id number] [address] [place] [address], [place] [address] 05 Aug, 2014 [facility] [address] [id number] [address] [place] [address], [place] [address] Aug, 2014 [facility] [address] [id number] [address] [place] [address], [place] [address] Aug, 2014 [facility] [address] [id number] [address] [place] [address], [place] [address] Aug, 2014 [facility] [address] [id number] [address] [place] [address], [place] [address] Aug, [facility] [address] [id number] [address] [place] [address], [place] [address] Jul, 2014 [facility] [address] [id number] [address] [place] [address], [place] [address] Jul, 2014 [facility] [address] [id number] [address] [place] [address], [place] [address] Jul, 2014 [facility] [address] [id number] [address] [place] [address], [place] [address] Jul, 2014 [facility] [address] [id number] [address] [place] [address], [place] [address] Jul, 2014 [facility] [address] [id number] [address] [place] [address], [place] [address] Jul, 2014 [facility] [address] [id number] [address] [place] [address], [place] [address] Jul, 2014 [facility] [address] [id number] [address] [place] [address], [place] [address] Jul, 2014 [facility] [address] [id number] [address] [place] [address], [place] [address] Jul, 2014 [facility] [address] [id number] [address] [place] [phone] Jul, 2014 [facility] [address] [id number] [address] [place] [address], [place] [address] Jul, 2014 [facility] [address] [id number] [address] [place] [address], [place] [address] Jul, 2014 [facility] [address] [id number] [address] [place] [address], [place] [address] Jul, [facility] [address] [id number] [address] [place] [address], [place] [address] Jul, [facility] [address] [id number] [address] [place] [address], [place] [address] Jun, [facility] [address] [id number] [address] [place] [address], [place] [address] Jun, [facility] [address] [id number] [address] [place] [address], [place] [address] Jun, [facility] [address] [id number] [address] [place] [address], [place] [address] Jun, [facility] [address] [id number] [address] [place] [address], [place] [address] Jun, [facility] [address] [id number] [address] [place] [address], [place] [address] Jun, [facility] [address] [id number] [address] [place] [address], [place] [address] May, [facility] [address] [id number] [address] [place] [address], [place] [address] May, [facility] [address] [id number] [address] [place] [address], [place] [address] May, [facility] [address] [id number] [address] [place] [address], [place] [address] May, [facility] [address] [id number] [address] [place] [address], [place] [address] May, [facility] [address] [id number] [address] [place] [address], [place] [address] May, [facility] [address] [id number] [address] [place] [address], [place] [address] Apr, [facility] [address] [id number] [address] [place] [address], [place] [address] Apr, [facility] [address] [id number] [address] [place] [address], [place] [address] Apr, [facility] [address] [id number] [address] [place] [address], [place] [address] Apr, [facility] [address] [id number] [address] [place] [address], [place] [address] Apr, [facility] [address] [id number] [address] [place] [address], [place] [address] Apr, [facility] [address] [id number] [address] [place] [address], [place] [address] Mar, [facility] [address] [id number] [address] [place] [address], [place] [address] Mar, [facility] [address] [id number] [address] [place] [address], [place] [address] Mar, [facility] [address] [id number] [address] [place] [address], [place] [address] Mar, [facility] [address] [id number] [address] [place] [address] Mar, [facility] [address] [id number] [address] [place] [address], [place] [address] Mar, [facility] [address] [id number] [address] [place] [address] Mar, [facility] [address] [id number] [address] [place] [address], [place] [address] Mar, [facility] [address] [id number] [address] [place] [address] Mar, [facility] [address] [id number] [address] [place] [address] Mar, [facility] [address] [id number] [address] [place] [address], [place] [address] Mar, [facility] [address] [id number] [address] [place] [address], [place] [address] Mar, [facility] [address] [id number] [address] [place] [address], [place] [address] Feb, [facility] [address] [id number] [address] [place] [address], [place] [address] Feb, [facility] [address] [id number] [address] [place] [address], [place] [address] Feb, [facility] [address] [id number] [address] [place] [address], [place] [address] Feb, [facility] [address] [id number] [address] [place] [address], [place] [address] Feb, [facility] [address] [id number] [address] [place] [address], [place] [address] Feb, [facility] [address] [id number] [address] [place] [address], [place] [address] Feb, [facility] [address] [id number] [address] [place] [address], [place] [address] Jan, [facility] [address] [id number] [address] [place] [address], [place] [address] Jan, [facility] [address] [id number] [address] [place] [address], [place] [address] Jan, [facility] [address] [id number] [address] [place] [address], [place] [address] Dec, [facility] [address] [id number] [address] [place] [address], [place] [address] Dec, [facility] [address] [id number] [address] [place] [address], [place] [address] Dec, [facility] [address] [id number] [address] [place] [address], [place] [id number] Dec, [facility] [address] [id number] [address] [place] [address], [place] [address] Sep, [facility] [address] [id number] [address] [place] [address], [place] [address] Sep, [facility] [address] [id number] [address] [place] [address], [place] [address] Sep, [facility] [address] [id number] [address] [place] [address], [place] [address] Sep, [facility] [address] [id number] [address] [place] [address], [place] [address] Sep, [facility] [address] [id number] [address] [place] [address], [place] [address] Sep, [facility] [address] [id number] [address] [place] [address], [place] [address] Sep, [facility] [address] [id number] [address] [place] [address], [place] [id number] Sep, [facility] [address] [id number] [address] [place] [address], [place] [address] Aug, [facility] [address] [id number] [address] [place] [address], [place] [address] Aug, [facility] [address] [id number] [address] [place] [address], [place] [id number] May, [facility] [address] [id number] [address] [place] [address], [place] [address] May, [facility] [address] [id number] [address] [place] [address], [place] [id number] Apr, [facility] [address] [id number] [address] [place] [address], [place] [id number] Apr, [facility] [address] [id number] [address] [place] [address], [place] [address] Apr, [facility] [address] [id number] [address] [place] [address], [place] [address] Apr, [facility] [address] [id number] [address] [place] [address], [place] [id number] Apr, [facility] [address] [id number] [address] [place] [address], [place] [address] Apr, [facility] [address] [id number] [address] [place] [address], [place] [id number] 18 May, 2012 [facility] [address] [id number] [address] [place] [address], [place] [id number] 18 May, 2012 [facility] [address] [id number] [address] [place] [address], [place] [id number] 15 May, 2012 [facility] [address] [id number] [address] [place] [address], [place] [id number] 15 May, 2012 [facility] [address] [id number] [address] [place] [address], [place] [address] May, [facility] [address] [id number] [address] [place] [address], [place] [address] 13 May, 2012 [facility] [address] [id number] [address] [place] [address], [place] [id number] 13 Apr, 2012 [facility] [address] [id number] [address] [place] [address], [place] [id number] 13 Apr, 2012 [facility] [address] [id number] [address] [place] [address], [place] [address] Apr, [facility] [address] [id number] [address] [place] [address], [place] [id number] Apr, [facility] [address] [id number] [address] [place] [address], [place] [address] Apr, [facility] [address] [id number] [address] [place] [address], [place] [id number] Apr, [facility] [address] [id number] [address] [place] [address], [place] [address] Apr, [facility] [address] [id number] [address] [place] [address], [place] [address] Apr, [facility] [address] [id number] [address] [place] [address], [place] [id number] Apr, [facility] [facility] [address] [id number] [address] [place] [address], [place] [id number] Apr, [facility] [address] [id number] [address] [place] [address], [place] [id number] Mar, [facility] [address] [id number] [address] [place] [address], [place] [id number] Mar, [facility] [address] [id number] [address] [place] [address], [place] [id number] Mar, [facility] [address] [id number] [address] [place] [address], [place] [id number] Mar, [facility] [address] [id number] [address] [place] [phone] Mar, [facility] [address] [id number] [address] [place] [address], [place] [id number] Mar, [facility] [address] [id number] [address] [place] [id number] Mar, [facility] [address] [id number] [address] [place] [phone] Mar, [facility] [address] [id number] [address] [place] [phone] Mar, [facility] [address] [id number] [address] [place] [address], [place] [id number] 25 Feb, 2012 [facility] [address] [id number] [address] [place] [id number] 16 Sep2011 [facility] [address] [id number] [address] [place] [id number] 11 Sep2011 [facility] [address] [id number] [address] [place] [phone] Jan, [facility] [address] [id number] [address] [place] [address], [place] [id number] Jan, [facility] [address] [id number] [address] [place] [address], [place] [id number] Jan, [facility] [address] [id number] [address] [place] [address], [place] [id number] Jan, [facility] [address] [id number] [address] [place] [address], [place] [id number] Jan, [facility] [address] [id number] [address] [place] [address], [place] [id number] Jan, [facility] [address] [id number] [address] [place] [address], [place] [id number] Jan, [facility] [address] [id number] [address] [place] [address], [place] [id number] Jan, [facility] [address] [id number] [address] [place] [address], [place] [id number] Jan, [facility] [address] [id number] [address] [place] [address], [place] [id number] Jan, [facility] [address] [id number] [address] [place] [address], [place] [id number] Dec, [facility] [address] [id number] [address] [place] [address], [place] [id number] Dec, [facility] [address] [id number] [address] [place] [address], [place] [id number] Dec, [facility] [address] [id number] [address] [place] [address], [place] [id number] Dec, [facility] [address] [id number] [address] [place] [address], [place] [id number] Nov, [facility] [address] [id number] [address] [place] [address], [place] [id number] Nov, [facility] [address] [id number] [address] [place] [address], [place] [id number] Nov, [facility] [address] [id number] [address] [place] [id number] October, [facility] [address] [id number] [address] [place] [address], [place] [id number] October, [facility] [address] [id number] [address] [place] [id number] October, [facility] [address] [id number] [address] [place] [address], [place] [id number] October, [facility] [address] [id number] [address] [place] [address], [place] [id number] October, [facility] [address] [id number] [address] [place] [address], [place] [id number] October, [facility] [address] [id number] [address] [place] [id number] Aug, [facility] [address] [id number] [address] [place] [id number] Mar, [facility] [address] [id number] [address] [place] [id number] Nov, [facility] [address] [id number] [address] [place] [id number] May, [facility] [address] [id number] [address] [place] [id number] May, [facility] [address] [id number] [address] [place] [id number] Apr, [facility] [address] [id number] [address] [place] [id number] Mar, [facility] [address] [id number] [address] [place] [id number] Mar, IMMUNIZATIONS No Known Immunizations SOCIAL HISTORY Never Assessed REASON FOR VISIT TAMAR f/u PLAN OF CARE Activity Details Follow Up 1 Week Reason:BH F/U VITAL SIGNS MEDICATIONS Unknown Medications RESULTS No Results PROCEDURES Procedure Date Ordered Result Body Site [facility] ESTAB PT September 27, 2017 Psychotherapy, patient &/family, 45 minutes, established pat ient September 27, 2017 INSTRUCTIONS MEDICATIONS ADMINISTERED No Known Medications [...]
--- OUTSIDE RECORDS SUMMARY | 2019-06-19 05:39 | XMS REPORT ---
Author Author Sydnie SQUIRES Organization [facility] Address [address] [place] [address] Care Team Providers Care Title Clerk Name Role Phone MIRIAN SQUIRES Unavailable PROBLEMS Type Condition ICD9-CM Code EAV76-DN Code Onset Dates Condition S tatus SNOMED Code Problem Hormone replacement therapy Z79.890 Ac tive 872563389 Problem Abnormal CT scan, head R93.0 Active 796049514 Problem Sensorineural hearing loss (SNHL) of both ears H90 .3 Active 408642634 Problem History of colon polyps Z86.010 Active 033898781 Problem Bruising, spontaneous R23.3 Active 226536312 Problem Generalized anxiety disorder F41.1 A ctive 18789692 Problem Arthralgia of hip, unspecified laterality M25.559 Active 26337106 Problem Hematuria, unspecified type R31.9 Ac tive 54166301 Problem Imbalance R26.89 Active 061290868 Problem Hammer toe of right foot M20.41 Activ e 931941365 Problem Plantar wart of right foot B07.0 Act mitchell [id number] Problem Sciatica of left side M54.32 Active 31225038 Problem Hyperlipidemia, unspecified hyperlipidemia type E7 8.5 Active 75846233 Problem Hypertension I10 Active 6069721 3 Problem Night sweats R61 Active 3443343 0 Problem Fibromyalgia M79.7 Active 6737298 7 Problem Major depressive disorder, recurrent episode, moderate F33.1 Active 450648318 Problem Acute left-sided low back pain with left-sided sciatica M54.42 Active 457302101 Problem Bladder spasm N32.89 Active 356560 006 Problem Gastritis without bleeding, unspecified chronicity, unspecified gastritis type K29.70 Active 841258510 Problem Bipolar 1 disorder, mixed F31.60 Acti ve 37203334 Problem Grief F43.20 Active 65630738 Problem Other chronic pain G89.29 Active 8 3675963 Problem Allergic rhinitis J30.9 Active 61 476972 Problem Hot flashes due to menopause N95.1 A ctive 649308929 Problem Ataxia R27.0 Active 16729637 Problem Hearing loss, unspecified laterality H91.90 Active 40746262 ALLERGIES Substance Reaction Event Type Date Status Morphine Sulfate Unknown Drug Allergy Sep, Active Iodine Unknown Drug Allergy Sep, Active Lyrica 75 Mg Capsule "felt weird" Non Drug Allergy Sep, Act mitchell ENCOUNTERS Encounter Location Date Diagnosis [facility] [address] [facility] [id number] [address] [place] [phone] Mar, [facility] [address] [facility] [id number] [address] [place] [phone] Jan, [facility] [address] [place] [id number] [place] [address] Jan, [facility] [address] [place] [id number] [place] [phone] Jan, [facility] [address] [place] [id number] [place] [phone] Jan, [facility] [address] [place] [id number] [place] [address] Dec, Bipolar 1 disorder, mixed F3 1.60 ; Generalized anxiety disorder F41.1 and 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 [facility] [address] [facility] [id number] [address] [place] [phone] Dec, Other longterm (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 Z79.899 [facility] [address] [facility] [id number] [address] [place] [id number] Dec, Bipolar 1 disorder, mixed F3 1.60 [facility] [address] [facility] [id number] [address] [place] [phone] Dec, Bipolar 1 disorder, mixed F3 1.60 [facility] [address] [facility] [id number] [address] [place] [phone] Nov, Bipolar 1 disorder, mixed F3 1.60 [facility] [address] [facility] [id number] [address] [place] [phone] 27 Nov, 2017 Bipolar 1 disorder, mixed F3 1.60 [facility] [address] [facility] [id number] [address] [place] [phone] Nov, Bipolar 1 disorder, mixed F3 1.60 [place] [address] [place] [id number] [place] [id number] 11 Nov, 2017 Allergic rhinitis J30.9 [facility] [address] [facility] [id number] [address] [place] [phone] Nov, Allergic rhinitis J30.9 [facility] [address] [place] [id number] [place] [address] Nov, [facility] [address] [address] Nov, Bipolar 1 disorder, mixed F3 1.60 [place] [address] [place] [id number] [place] [phone] 06 Nov, 2017 Fibromyalgia M79.7 and Aller gic rhinitis J30.9 [place] [address] [place] [id number] [place] [phone] October, Bipolar 1 disorder, mixed F3 1.60 [facility] [address] [place] [id number] [place] [phone] October, Acute nasopharyngitis J00 [facility] [address] [id number] [place] [phone] October, Bitten or stung by nonvenomo us insect and other nonvenomous arthropods, initial encounter W57.XXXA and Insect bite (nonvenomous) of abdominal wall, initial encounter S30.861A [facility] [address] [place] [id number] [place] [id number] October, Insect bite (nonvenomous) of abdominal wall, initial encounter S30.861A ; Bitten or stung by nonvenomous insect and other nonvenomous arthropods, initial encounter W57.XXXA ; Allergic rhinitis J30.9 and Low back pain M54.5 [facility] [address] [place] [id number] [place] [phone] October, Bipolar 1 disorder, mixed F3 1.60 [facility] [address] [place] [id number] [place] [id number] October, [facility] [address] [facility] [id number] [address] [place] [id number] October, [facility] [address] [facility] [id number] [address] [place] [id number] October, Bipolar 1 disorder, mixed F3 1.60 [facility] [address] [place] [id number] [place] [id number] Sep, Bipolar 1 disorder, mixed F3 1.60 [facility] [address] [place] [id number] [place] [id number] Sep, Other chronic pain G89.29 [facility] [address] [place] [id number] [place] [id number] Sep, [facility] [address] [place] [id number] [place] [address] Sep, Bipolar 1 disorder, mixed F3 1.60 [facility] [address] [place] [id number] [place] [address] Sep, Allergic rhinitis J30.9 and Sciatica of left side M54.32 [facility] [address] [place] [id number] [place] [phone] Sep, Bipolar 1 disorder, mixed F3 1.60 [facility] [address] [place] [id number] [place] [address] Sep, Bipolar 1 disorder, mixed F3 1.60 and Generalized anxiety disorder F41.1 [facility] [address] [place] [id number] [place] [id number] Aug, [facility] [address] [facility] [id number] [address] [place] [phone] Aug, Bipolar 1 disorder, mixed F3 1.60 [facility] [address] [facility] [id number] [address] [place] [phone] Aug, Bipolar 1 disorder, mixed F3 1.60 [facility] [address] [facility] [id number] [address] [place] [phone] Aug, [facility] [address] [facility] [id number] [address] [place] [phone] Aug, Generalized anxiety disorder F41.1 [facility] [address] [facility] [id number] [address] [place] [id number] Aug, Bipolar 1 disorder, mixed F3 1.60 [facility] [address] [facility] [id number] [address] [place] [phone] Aug, Plantar wart of right foot B 07.0 [facility] [address] [facility] [id number] [address] [place] [id number] Aug, Bipolar 1 disorder, mixed F3 1.60 [facility] [address] [facility] [id number] [address] [place] [phone] Jul, Bipolar 1 disorder, mixed F3 1.60 [facility] [address] [facility] [id number] [address] [place] [phone] Jul, [facility] [address] [facility] [id number] [address] [place] [id number] 14 Jul, 2017 Bipolar 1 disorder, mixed F3 1.60 [facility] [address] [facility] [id number] [address] [place] [phone] 09 Jul, 2017 Generalized anxiety disorder F41.1 [facility] [address] [facility] [id number] [address] [place] [id number] 07 Jul, 2017 Bipolar 1 disorder, mixed F3 1.60 [facility] [address] [facility] [id number] [address] [place] [id number] 07 Jul, 2017 Acute left-sided low back pa in with left-sided sciatica M54.42 [facility] [address] [place] [id number] [place] [id number] 05 Jul, 2017 Coccydynia M53.3 [facility] [address] [place] [id number] [place] [phone] Jun, Bipolar 1 disorder, mixed F3 1.60 [facility] [address] [place] [id number] [place] [id number] Jun, Acute nasopharyngitis J00 [place] [address] [address] Jun, Bipolar 1 disorder, mixed F3 1.60 [place] [address] [address] Jun, Fibromyalgia M79.7 [facility] [address] [address] Jun, Bipolar 1 disorder, mixed F3 1.60 [place] [address] [address] Jun, Fibromyalgia M79.7 and Bipol ar 1 disorder, mixed F31.60 [place] [address] [place] [id number] [place] [phone] May, Bipolar 1 disorder, mixed F3 1.60 ; Generalized anxiety disorder F41.1 and 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 [facility] [address] [place] [id number] [place] [phone] May, Bipolar 1 disorder, mixed F3 1.60 [facility] [address] [place] [id number] [place] [phone] May, Cough R05 and Body aches R52 [facility] [address] [place] [id number] [place] [phone] May, Bladder spasm N32.89 and Acu te cystitis without hematuria N30.00 [facility] [address] [address] 07 May, 2017 Bipolar 1 disorder, mixed F3 1.60 [facility] [address] [place] [id number] 30 Apr, 2017 [place] [address] Apr, Major depressive disorder, r ecurrent episode, moderate F33.1 and Encounter for immunization Z23 [place] [address] Apr, Bipolar 1 disorder, mixed F3 1.60 [place] [address] [address] Apr, Bipolar 1 disorder, mixed F3 1.60 [place] [address] [address] Apr, Bipolar 1 disorder, mixed F3 1.60 [place] [address] [address] Apr, Yeast vaginitis B37.3 [facility] [address] [address] Apr, Bipolar 1 disorder, mixed F3 1.60 [facility] [address] [place] [id number] [place] [id number] 07 Apr, 2017 Cellulitis L03.[address] for immunization Z23 [facility] [address] [address] Apr, Bipolar 1 disorder, mixed F3 1.60 [facility] [address] [address] Mar, Bipolar 1 disorder, mixed F3 1.60 [place] [address] [id number] Mar, Bipolar 1 disorder, mixed F3 1.60 [place] [address] [place] [id number] [place], [place] [id number] Mar, Imbalance R26.89 [address] En[address] er for immunization Z23 [place] [address] [place] [id number] [place] [address] Mar, Generalized anxiety disorder F41.1 [place] [address] [place] [id number] [place] [id number] Mar, Bipolar 1 disorder, mixed F3 1.60 [place] [address] [place] [id number] [place] [id number] Mar, Generalized anxiety disorder F41.1 [place] [address] [place] [id number] [place] [id number] Mar, Bipolar 1 disorder, mixed F3 1.60 [place] [address] [place] [id number] [address] [place] [phone] Mar, Bipolar 1 disorder, mixed F3 1.60 [place] [address] [place] [id number] [place] [phone] Feb, Bipolar 1 disorder, mixed F3 1.60 [place] [address] [place] [id number] [place] [phone] Feb, Bipolar 1 disorder, mixed F3 1.60 and Generalized anxiety disorder F41.1 [place] [address] [place] [id number] [place], [place] [address] Feb, Gastritis without bleeding, unspecified chronicity, unspecified gastritis type K29.70 ; Hammer toe of right foot M20.41 and Other viral warts B07.8 [place] [address] [place] [id number] [place] [id number] Feb, Bipolar 1 disorder, mixed F3 1.60 [place] [address] [place] [id number] [place] [id number] Feb, Bipolar 1 disorder, mixed F3 1.60 [facility] [address] [facility] [id number] [address] [place] [id number] 05 Feb, 2017 Bipolar 1 disorder, mixed F3 1.60 [facility] [address] [facility] [id number] [address] [place], [place] [address] Jan, Encounter for screening mamm ogram for breast cancer Z12.31 ; Other viral warts B07.8 and Allergic rhinitis J30.9 [facility] [address] [facility] [id number] [address] [place] [id number] Jan, Bipolar 1 disorder, mixed F3 1.60 [facility] [address] [facility] [id number] [address] [place] [phone] Jan, Bipolar 1 disorder, mixed F3 1.60 [place] [address] [facility] [id number] [address] [place] [id number] 14 Jan, 2017 [facility] [address] [place] [id number] [place] [phone] Jan, Bipolar 1 disorder, mixed F3 1.60 [facility] [address] [facility] [id number] [address] [place] [phone] Jan, Bipolar 1 disorder, mixed F3 1.60 [facility] [address] [facility] [id number] [address] [place] [address] Jan, Allergic rhinitis J30.9 ; He maturia R31.9 and Colon cancer screening Z12.11 [facility] [address] [facility] [id number] [address] [place] [address] Dec, Bipolar 1 disorder, mixed F3 1.60 [facility] [address] [facility] [id number] [address] [place] [id number] Dec, Bipolar 1 disorder, mixed F3 1.60 ; Generalized anxiety disorder F41.1 and 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 [facility] [address] [facility] [id number] [address] [place] [address] Dec, Bipolar 1 disorder, mixed F3 1.60 [facility] [address] [id number] [address] [place] [phone] Dec, Bipolar 1 disorder, mixed F3 1.60 [facility] [address] [facility] [id number] [address] [place] [address] Dec, Bipolar 1 disorder, mixed F3 1.60 [facility] [address] [facility] [id number] [address] [place] [address] Dec, Low back pain M54.5 and Recu rrent urinary tract infection N39.0 [facility] [address] [facility] [id number] [address] [place] [phone] Nov, Bipolar 1 disorder, mixed F3 1.60 [facility] [address] [facility] [id number] [address] [place] [address] Nov, Bipolar 1 disorder, mixed F3 1.60 [facility] [address] [facility] [id number] [address] [place] [id number] Nov, Bipolar 1 disorder, mixed F3 1.60 [facility] [address] [facility] [id number] [address] [place] [address] Nov, Bipolar 1 disorder, mixed F3 1.60 [facility] [address] [facility] [id number] [address] [place] [phone] Nov, [facility] [address] [facility] [id number] [address] [place] [address] Nov, Anesthesia of skin R20.0 ; F requent UTI N39.0 ; Tobacco abuse Z72.0 and Colon cancer screening Z12.11 [facility] [address] [facility] [id number] [address] [place] [address] Nov, Bipolar 1 disorder, mixed F3 1.60 [facility] [address] [facility] [id number] [address] [place] [address] October, Bipolar 1 disorder, mixed F3 1.60 [facility] [address] [facility] [id number] [address] [place] [address] October, Bipolar 1 disorder, mixed F3 1.60 [facility] [address] [facility] [id number] [address] [place] [address] October, Bipolar 1 disorder, mixed F3 1.60 [facility] [address] [facility] [id number] [address] [place] [address] October, Bipolar 1 disorder, mixed F3 1.60 [place] [address] [place] [id number] [place] [address] October, Bipolar 1 disorder, mixed F3 1.60 [place] [address] [place] [id number] [place] [phone] October, Cervicalgia M54.2 and Bipola r 1 disorder, mixed F31.60 [place] [address] [place] [id number] [place] [address] October, Hypertension I10 ; Hyperlipi demia, unspecified hyperlipidemia type E78.5 and Family history of thyroid disease Z83.49 [place] [address] [place] [id number] [place] [address] October, [place] [address] [place] [id number] [place] [address] October, Hypertension I10 ; Hyperlipi demia, unspecified hyperlipidemia type E78.5 and Family history of thyroid problem Z83.49 [place] [address] [place] [id number] [place] [address] October, Bipolar 1 disorder, mixed F3 1.60 [place] [address] [place] [id number] [place] [phone] Sep, Bipolar 1 disorder, mixed F3 1.60 [place] [address] [place] [id number] [place] [address] Sep, Bipolar 1 disorder, mixed F3 1.60 [place] [address] [place] [id number] [place] [address] Sep, Bipolar 1 disorder, mixed F3 1.60 [facility] [id number] [place] [address] Sep, History of colon polyps Z86. 010 and Hematochezia K92.1 [facility] [address] [place] [id number] [place] [phone] Sep, Major depressive disorder, r ecurrent episode, moderate F33.1 [facility] [address] [place] [id number] [place] [address] Sep, Bipolar 1 disorder, mixed F3 1.60 [facility] [address] [place] [id number] [place] [id number] Aug, Hot flashes due to menopause N95.1 [place] [address] [place] [id number] [place] [address] Aug, Bipolar 1 disorder, mixed F3 1.60 [place] [address] [place] [id number] [address] [place] [address] Aug, [facility] [address] [address] Aug, Bipolar 1 disorder, mixed F3 1.60 [place] [address] [address] Aug, Bipolar 1 disorder, mixed F3 1.60 [place] [address] [address] Aug, Hot flashes due to menopause N95.1 ; Cervicalgia M54.2 and Ataxia R27.0 [facility] [address] [place] [id number] [place] [phone] Jul, Bipolar 1 disorder, mixed F3 1.60 [place] [address] [place] [id number] [place] [phone] Jul, Bipolar 1 disorder, mixed F3 1.60 [place] [address] [place] [id number] [place] [address] Jul, Bipolar 1 disorder, mixed F3 1.60 [place] [address] Jul, Bipolar 1 disorder, mixed F3 1.60 [place] [address] Jul, Bipolar 1 disorder, mixed F3 1.60 [place] [address] [place] [address] 08 Jul, 2016 Cervicalgia M54.2 ; Tremor R 25.1 ; Hearing abnormally acute, unspecified laterality H93.239 ; Alopecia L65.9 ; Encounter for immunization Z23 and Family history of thyroid disease Z83.49 [place] [address] Jul, Bipolar 1 disorder, mixed F3 1.60 [place] [address] [place] [address] Jun, [place] [address] Jun, Hearing disorder, unspecifie d laterality H93.299 [place] [address] [place] [address] Jun, Bipolar 1 disorder, mixed F3 1.60 [place] [address] [place] 96[address] Jun, Bipolar 1 disorder, mixed F3 1.60 [place] [address] [address] Jun, Allergic rhinitis J30.9 [place] [address] [place] [address] Jun, Bipolar 1 disorder, mixed F3 1.60 [place] [address] [address] Jun, Bipolar 1 disorder, mixed F3 1.60 [facility] [address] [id number] [address] [place] [phone] Jun, Allergic rhinitis J30.9 [facility] [address] [id number] [address] [place] [phone] Jun, Allergic rhinitis J30.9 [facility] [address] [id number] [address] [place] [phone] Jun, Bipolar 1 disorder, mixed F3 1.60 [facility] [address] [id number] [address] [place] [phone] May, Bipolar 1 disorder, mixed F3 1.60 [facility] [address] [id number] [address] [place] [phone] May, Bipolar 1 disorder, mixed F3 1.60 [facility] [address] [id number] [address] [place] [phone] May, [facility] [address] [id number] [address] [place] [phone] May, Bipolar 1 disorder, mixed F3 1.60 [facility] [address] [id number] [address] [place] [phone] May, Bipolar 1 disorder, mixed F3 1.60 [facility] [address] [facility] [id number] [address] [place] [phone] May, [facility] [address] [id number] [address] [place] [phone] May, [facility] [address] [id number] [address] [place] [phone] May, [facility] [address] [id number] [address] [place] [phone] May, Abdominal pain, unspecified location R10.9 [facility] [address] [id number] [address] [place] [phone] May, [facility] [address] [facility] [id number] [address] [place] [phone] Apr, Hematuria R31.9 ; Ataxia R27 .0 and Hearing loss, unspecified laterality H91.90 [facility] [address] [place] [place] [id number] [address] [place] [phone] Apr, Bipolar 1 disorder, mixed F3 1.60 [facility] [address] [address] Apr, Acute effusion of both middl e ears H65.193 [place] [address] [address] Apr, Hematuria R31.9 and Pyelonep hritis N12 [place] [address] [address] Apr, [place] [address] [address] Mar, Bipolar 1 disorder, mixed F3 1.60 [place] [address] [address] Mar, [place] [address] [place] [address] Mar, Bipolar 1 disorder, mixed F3 1.60 [place] [address] [address] Mar, Bipolar 1 disorder, mixed F3 1.60 [place] [address] [address] Mar, Encounter for immunization Z 23 and Gastritis without bleeding, unspecified chronicity, unspecified gastritis type K29.70 [place] [address] [address] Mar, Bipolar 1 disorder, mixed F3 1.60 and Grief F43.20 [place] [address] [address] Mar, Gastritis without bleeding, unspecified chronicity, unspecified gastritis type K29.70 [facility] [address] [place] [id number] [address] [place] [address] Mar, Bipolar 1 disorder, mixed F3 1.60 [place] [address] [address] [place] [id number] [address] [place], [place] [id number] 05 Mar, 2016 Gastritis without bleeding, unspecified chronicity, unspecified gastritis type K29.70 [facility] [address] [place] [address] Mar, [place] [address] [place] [address] Feb, Bipolar 1 disorder, mixed F3 1.60 [place] [address] Feb, Bipolar 1 disorder, mixed F3 1.60 and Grief F43.20 [place] [address] [place] [address] Feb, Gastritis without bleeding, unspecified chronicity, unspecified gastritis type K29.70 [place] [address] [place] [address] 14 Feb, 2016 Bipolar 1 disorder, mixed F3 1.60 [facility] [address] [place] [id number] [place] [address] 09 Feb, 2016 Gastroesophageal reflux dise ase, esophagitis presence not specified K21.9 [facility] [address] [place] [address] Jan, Bipolar 1 disorder, mixed F3 1.60 [place] [address] [place] [address] Jan, Bipolar 1 disorder, mixed F3 1.60 and Unsteady gait R26.81 [place] [address] [place] [id number] [place] [address] Jan, Bipolar 1 disorder, mixed F3 1.60 [facility] [address] [place] [address] [place] [address] Jan, Bipolar 1 disorder, mixed F3 1.60 and Other longterm (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 Z79.899 [facility] [address] [facility] [id number] [address] [place] [address] Jan, Bipolar 1 disorder, mixed F3 1.60 [facility] [address] [facility] [id number] [address] [place] [address] Jan, Bipolar 1 disorder, mixed F3 1.60 [place] [address] [address] [facility] [id number] [address] [place] [address] Jan, Bipolar 1 disorder, mixed F3 1.60 ; Grief F43.20 and Other longterm (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 Z79.899 [facility] [address] [place] [id number] [address] [place] [address] Jan, Bipolar 1 disorder, mixed F3 1.60 [place] [address] [place] [id number] [address] [place] [address] Dec, [facility] [address] [place] [id number] [address] [place] [address] Dec, Bipolar 1 disorder, mixed F3 1.60 ; Vitamin D deficiency, unspecified E55.9 ; H/O allergic rhinitis Z87.09 ; Other chronic pain G89.29 and Dorsalgia, unspecified M54.9 [place] [address] [place] [id number] [place] [address] Dec, [place] [address] [place] [id number] [place] [address] Dec, Bipolar 1 disorder, mixed F3 1.60 [place] [address] [place] [id number] [place] [address] Dec, Major depressive disorder, r ecurrent episode, moderate F33.1 [facility] [address] [place] [id number] [place] [address] Dec, Major depressive disorder, r ecurrent episode, moderate F33.1 [facility] [address] [facility] [id number] [address] [place] [address] Nov, [place] [address] [address] [facility] [id number] [address] [place] [address] Nov, Bipolar 1 disorder, mixed F3 1.60 [place] [address] [address] [facility] [id number] [address] [place] [address] Nov, Major depressive disorder, r ecurrent episode, moderate F33.1 [place] [address] [address] [facility] [id number] [address] [place] [address] Nov, Cervicalgia M54.2 ; Arthralg ia of hip, unspecified laterality M25.559 ; Allergic rhinitis J30.9 and Hormone replacement therapy Z79.890 [facility] [address] [facility] [id number] [address] [place] [address] Nov, Other seasonal allergic rhin itis J30.2 [place] [address] [address] [facility] [id number] [address] [place] [address] October, Major depressive disorder, r ecurrent episode, moderate F33.1 [place] [address] [address] [facility] [id number] [address] [place] [address] October, Major depressive disorder, r ecurrent episode, moderate F33.1 and Arthralgia of hip, unspecified laterality M25.559 [place] [address] [address] [place] [id number] [address] [place] [address] October, Grief F43.20 ; Hypertension I10 ; Hyperlipidemia, unspecified hyperlipidemia type E78.5 ; Other chronic pain G89.29 and Allergic rhinitis, unspecified allergic rhinitis type J30.9 [place] [address] [address] [facility] [id number] [address] [place] [address] October, Major depressive disorder, r ecurrent episode, moderate F33.1 [place] [address] [address] [facility] [id number] [address] [place] [address] Sep, Major depressive disorder, r ecurrent episode, moderate F33.1 [facility] [address] [id number] [address] [place] [address] Sep, [facility] [address] [id number] [address] [place] [address] Sep, Major depressive disorder, r ecurrent episode, moderate F33.1 [facility] [address] [id number] [address] [place] [address] Sep, Grief F43.20 [facility] [address] [id number] [address] [place] [address] Aug, Major depressive disorder, r ecurrent episode, moderate F33.1 [place] [address] [address] [facility] [id number] [address] [place] [address] Aug, Bipolar 1 disorder, mixed F3 1.60 [place] [address] [address] [facility] [id number] [address] [place] [address] Aug, Allergic rhinitis J30.9 ; Ce rvicalgia M54.2 and Low back pain M54.5 [facility] [address] [facility] [id number] [address] [place] [address] Aug, Major depressive disorder, r ecurrent episode, moderate F33.1 [facility] [address] [facility] [id number] [address] [place] [address] Aug, Sinusitis J32.9 and Tobacco 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 [facility] [address] [facility] [id number] [address] [place] [address] Aug, [facility] [address] [facility] [id number] [address] [place] [address] Aug, Depressive disorder, not els ewhere classified F32.9 ; Hormone replacement therapy Z79.[address] scan, head R93.0 [facility] [address] [facility] [id number] [address] [place] [address] Aug, Major depressive disorder, r ecurrent episode, moderate F33.1 [facility] [address] [facility] [id number] [address] [place] [id number] 17 Jul, 2015 Major depressive disorder, r ecurrent episode, moderate F33.1 [facility] [address] [facility] [id number] [address] [place] [address] 17 Jul, 2015 Abdominal pain R10.9 and Hyp ertension I10 [facility] [address] [facility] [id number] [address] [place] [address] Jul, [facility] [address] [facility] [id number] [address] [place] [address] Jul, Major depressive disorder, r ecurrent episode, moderate F33.1 [facility] [address] [facility] [id number] [address] [place] [id number] 04 Jul, 2015 [facility] [address] [facility] [id number] [address] [place] [address] Jul, [facility] [address] [place] [id number] [place] [phone] Jun, [facility] [address] [place] [id number] [place] [address] Jun, Depressive disorder, not els ewhere classified F32.9 [facility] [address] [place] [id number] [place] [address] Jun, [facility] [address] [place] [id number] [address] [place] [address] Jun, [facility] [address] [place] [id number] [place] [address] Jun, Arthralgia of hip, unspecifi ed laterality M25.559 ; Bruising, spontaneous R23.3 and Night sweats R61 [facility] [address] [facility] [id number] [address] [place] [address] Jun, [facility] [address] [place] [id number] [address] [place] [address] Jun, [facility] [address] [id number] [address] [place] [address] May, [facility] [address] [id number] [address] [place] [address] May, Myalgia M79.1 and Screening, lipid Z13.220 [facility] [address] [facility] [id number] [address] [place] [address] Apr, Status post cervical spinal fusion Z98.1 ; Fibromyalgia M79.7 and Unsteady gait R26.81 [facility] [address] [id number] [address] [place] [address] Nov, [facility] [address] [facility] [id number] [address] [place] [address] Nov, [facility] [address] [facility] [id number] [address] [place] [address] October, [facility] [address] [facility] [id number] [address] [place] [phone] October, [facility] [address] [facility] [id number] [address] [place] [address] October, [facility] [address] [facility] [id number] [address] [place] [address] October, [facility] [address] [facility] [id number] [address] [place] [phone] October, [facility] [address] [facility] [id number] [address] [place] [address] October, Dysuria 788.1 ; Nausea 787.0 2 and Urinary tract infection 599.0 [facility] [address] [id number] [address] [place] [address] Sep, [facility] [address] [facility] [id number] [address] [place] [phone] Sep, [facility] [address] [facility] [id number] [address] [place] [id number] 25 Aug, 2014 [facility] [address] [id number] [address] [place] [address], [place] [address] 25 Aug, 2014 [facility] [place] [facility] [address] [id number] [address] [place] [address], [place] [address] 24 Aug, 2014 [facility] [address] [id number] [address] [place] [address], [place] [address] 24 Aug, 2014 [facility] [place] [facility] [address] [id number] [address] [place] [address], [place] [address] 23 Aug, 2014 [facility] [address] [id number] [address] [place] [address], [place] [address] 19 Aug, 2014 [facility] [address] [id number] [address] [place] [address], [place] [address] 19 Aug, 2014 [facility] [address] [id number] [address] [place] [address], [place] [address] 19 Aug, 2014 [facility] [address] [id number] [address] [place] [address], [place] [address] 19 Aug, 2014 [facility] [address] [id number] [address] [place] [address], [place] [address] 18 Aug, 2014 [facility] [address] [id number] [address] [place] [address], [place] [address] 18 Aug, 2014 [facility] [place] [facility] [address] [id number] [address] [place] [address], [place] [address] 13 Aug, 2014 [facility] [place] [facility] [address] [id number] [address] [place] [address], [place] [address] 13 Aug, 2014 [facility] [place] [facility] [address] [id number] [address] [place] [address], [place] [address] 11 Aug, 2014 [facility] [place] [facility] [address] [id number] [address] [place] [address], [place] [address] 11 Aug, 2014 [facility] [place] [facility] [address] [id number] [address] [place] [address], [place] [address] 06 Aug, 2014 [facility] [place] [facility] [address] [id number] [address] [place] [address], [place] [address] 06 Aug, 2014 [facility] [place] [facility] [address] [id number] [address] [place] [address], [place] [address] Aug, 2014 [facility] [place] [facility] [address] [id number] [address] [place] [address], [place] [address] 05 Aug, 2014 [facility] [place] [facility] [address] [id number] [address] [place] [address], [place] [address] Aug, 2014 [facility] [place] [facility] [address] [id number] [address] [place] [address], [place] [address] Aug, [facility] [place] [facility] [address] [id number] [address] [place] [address], [place] [address] Aug, [facility] [place] [facility] [address] [id number] [address] [place] [address], [place] [address] Jul, [facility] [place] [facility] [address] [id number] [address] [place] [address], [place] [address] Jul, [facility] [place] [facility] [address] [id number] [address] [address], [place] [address] Jul, [facility] [place] [facility] [address] [id number] [address] [place] [address], [place] [address] Jul, [facility] [place] [facility] [address] [id number] [address] [place] [address], [place] [address] Jul, [facility] [place] [facility] [address] [id number] [address] [place] [phone] Jul, 2014 [facility] [place] [facility] [address] [id number] [address] [place] [address], [place] [address] Jul, [facility] [place] [facility] [address] [id number] [address] [place] [address], [place] [address] Jul, 2014 [facility] [place] [facility] [address] [id number] [address] [place] [address], [place] [address] Jul, 2014 [facility] [place] [facility] [address] [id number] [address] [place] [address] Jul, 2014 [facility] [address] [id number] [address] [place] [address], [place] [address] Jul, 2014 [facility] [address] [id number] [address] [place] [address], [place] [address] Jul, 2014 [facility] [address] [id number] [address] [place] [address], [place] [address] Jul, 2014 [facility] [address] [id number] [address] [place] [address], [place] [address] Jul, [facility] [address] [id number] [address] [place] [address], [place] [address] Jun, [facility] [address] [id number] [address] [place] [address], [place] [address] Jun, [facility] [address] [id number] [address] [place] [address], [place] [address] Jun, [facility] [address] [id number] [address] [place] [address], [place] [address] Jun, [facility] [address] [id number] [address] [place] [address], [place] [address] Jun, [facility] [address] [id number] [address] [place] [address], [place] [address] Jun, [facility] [address] [id number] [address] [place] [address], [place] [address] May, [facility] [address] [id number] [address] [address], [place] [address] May, [facility] [address] [id number] [address] [place] [address], [place] [address] May, [facility] [address] [id number] [address] [place] [address], [place] [address] May, [facility] [address] [id number] [address] [place] [address], [place] [address] May, [facility] [address] [id number] [address] [place] [address], [place] [address] May, [facility] [address] [id number] [address] [place] [address], [place] [address] Apr, [facility] [address] [id number] [address] [place] [address], [place] [address] Apr, [facility] [place] [facility] [address] [id number] [address] [place] [address], [place] [address] Apr, [facility] [address] [id number] [address] [place] [address], [place] [address] Apr, [facility] [address] [id number] [address] [place] [address], [place] [address] Apr, [facility] [address] [id number] [address] [place] [address], [place] [address] Apr, [facility] [address] [id number] [address] [place] [address], [place] [address] Mar, [facility] [address] [id number] [address] [place] [address], [place] [address] Mar, [facility] [address] [id number] [address] [place] [address], [place] [address] Mar, [facility] [address] [id number] [address] [place] [address] Mar, [facility] [address] [id number] [address] [place] [phone] Mar, [facility] [address] [id number] [address] [place] [address], [place] [address] Mar, [facility] [place] [facility] [address] [id number] [address] [place] [address], [place] [address] Mar, [facility] [address] [id number] [address] [place] [address] Mar, [facility] [place] [facility] [address] [id number] [address] [place] [address] Mar, [facility] [place] [facility] [address] [id number] [address] [place] [address], [place] [address] Mar, [facility] [place] [facility] [address] [id number] [address] [place] [address], [place] [address] Mar, [facility] [place] [facility] [address] [id number] [address] [place] [address], [place] [address] Mar, [facility] [place] [facility] [address] [id number] [address] [place] [address], [place] [address] 30 Feb, 2014 [facility] [facility] [address] [id number] [address] [place] [address], [place] [address] 29 Feb, 2014 [facility] [address] [id number] [address] [place] [address], [place] [address] 29 Feb, 2014 [facility] [address] [id number] [address] [address], [place] [address] Feb, [facility] [address] [id number] [address] [address], [place] [address] Feb, [facility] [address] [id number] [address] [address], [place] [address] Feb, [facility] [address] [id number] [address] [address], [place] [address] Feb, [facility] [address] [id number] [address] [address], [place] [address] Jan, [facility] [address] [id number] [address] [address], [place] [address] Jan, [facility] [address] [id number] [address] [address], [place] [address] Jan, [facility] [address] [id number] [address] [address], [place] [address] Dec, [facility] [address] [id number] [address] [address], [place] [address] Dec, [facility] [address] [id number] [facility] [place] [address] Dec, [facility] [address] [id number] [address] [place] [address], [place] [address] Dec, [facility] [address] [id number] [address] [address], [place] [address] Sep, [facility] [address] [id number] [address] [address], [place] [address] Sep, [facility] [address] [id number] [address] [address], [place] [address] Sep, [facility] [address] [id number] [address] [address], [place] [address] Sep, [facility] [address] [id number] [address] [address], [place] [address] Sep, [facility] [address] [id number] [address] [address], [place] [address] Sep, [facility] [address] [id number] [address] [address], [place] [address] Sep, [facility] [address] [id number] [address] [address], [place] [address] Sep, [facility] [address] [id number] [address] [address], [place] [address] Aug, [facility] [address] [id number] [address] [address], [place] [address] Aug, [facility] [address] [id number] [address] [address], [place] [address] May, [facility] [address] [id number] [address] [address], [place] [address] May, [facility] [address] [id number] [address] [address], [place] [address] Apr, [facility] [address] [id number] [address] [address], [place] [address] Apr, [facility] [address] [id number] [address] [address], [place] [address] Apr, [facility] [address] [id number] [address] [address], [place] [address] Apr, [facility] [address] [id number] [address] [address], [place] [address] Apr, [facility] [address] [id number] [address] [address], [place] [address] Apr, [facility] [address] [id number] [address] [address], [place] [address] May, [facility] [address] [id number] [address] [place] [address], [place] [address] 18 May, 2012 [facility] [address] [id number] 23 [address] [address], [place] [address] 15 May, 2012 [facility] [address] [id number] [address] [address], [place] [address] 15 May, 2012 [facility] [address] [id number] [address] [address], [place] [address] May, [facility] [address] [id number] [address] [address], [place] [address] May, [facility] [address] [id number] [address] [address], [place] [address] Apr, [facility] [address] [id number] [address] [address], [place] [address] Apr, [facility] [address] [id number] [address] [address], [place] [address] Apr, [facility] [address] [id number] [address] [address], [place] [address] Apr, [facility] [address] [id number] [address] [address], [place] [address] Apr, [facility] [address] [id number] [address] [place] [id number] 08 Apr, 2012 [facility] [address] [id number] [address] [address], [place] [address] 07 Apr, 2012 [facility] [address] [id number] [address] [place] [phone] Apr, [facility] [address] [id number] [address] [address], [place] [address] Apr, [facility] [address] [id number] [address] [address], [place] [address] Apr, [facility] [address] [id number] [address] [address], [place] [address] Mar, [facility] [address] [id number] [address] [address], [place] [address] Mar, [facility] [address] [id number] [address] [place] [phone] Mar, [facility] [address] [id number] [address] [place] [phone] Mar, [facility] [address] [id number] [address] [place] [phone] Mar, [facility] [address] [id number] [address] [place] [id number] Mar, [facility] [address] [id number] [address] [address], [place] [address] Mar, [facility] [address] [id number] [address] [place] [phone] Mar, [facility] [address] [id number] [address] [place] [phone] Mar, [facility] [address] [id number] [address] [place] [phone] 25 Feb, 2012 [facility] [address] [id number] [address] [place] [id number] 16 Sep2011 [facility] [address] [id number] [facility] [place] [address] Feb, [facility] [address] [id number] [address] [address], [place] [address] Jan, [facility] [address] [id number] [address] [address], [place] [address] Jan, [facility] [address] [id number] [address] [address], [place] [address] Jan, [facility] [address] [id number] [address] [address], [place] [address] Jan, [facility] [address] [id number] [address] [address], [place] [address] Jan, [facility] [address] [id number] [address] [address], [place] [address] Jan, [facility] [address] [id number] [address] [address], [place] [address] Jan, [facility] [address] [id number] [address] [address], [place] [address] Jan, [facility] [address] [id number] [address] [address], [place] [address] Jan, [facility] [address] [id number] [address] [address], [place] [address] Jan, [facility] [address] [id number] [address] [address], [place] [address] Dec, [facility] [address] [id number] [address] [address], [place] [address] Dec, [facility] [address] [id number] [address] [address], [place] [address] Dec, [facility] [address] [id number] [address] [address], [place] [address] 17 Dec, 2011 [facility] [address] [id number] [address] [address], [place] [address] Nov, [facility] [address] [id number] [address] [address], [place] [address] Nov, [facility] [address] [id number] [address] [address], [place] [address] Nov, [facility] [address] [id number] [address] [address], [place] [address] October, [facility] [address] [id number] [address] [address], [place] [address] October, [facility] [address] [id number] [address] [address], [place] [address] October, [facility] [address] [id number] [address] [address], [place] [address] October, [facility] [address] [id number] [address] [address], [place] [address] October, [facility] [address] [id number] [address] [address], [place] [address] October, [facility] [address] [id number] [address] [address], [place] [address] Aug, [facility] [address] [id number] [address] [address], [place] [address] Mar, [facility] [address] [id number] [address] [address], [place] [address] Nov, [facility] [address] [id number] [address] [address], [place] [address] May, [facility] [address] [id number] [address] [address], [place] [address] May, [facility] [address] [id number] [address] [address], [place] [address] Apr, [facility] [address] [id number] [address] [place] [address], [place] [address] 15 Mar, 2010 [facility] [address] [id number] [facility] [place] [address] 15 Mar, 2010 IMMUNIZATIONS No Known Immunizations SOCIAL HISTORY Never Assessed REASON FOR VISIT f/u PLAN OF CARE Activity Details Follow Up 3 Months Reason: f/u VITAL SIGNS Height 64 in 2017-09-21 Weight 163.7 lbs 2017-09-21 Heart Rate 92 bpm 2017-09-21 Respiratory Rate 20 2017-09-21 BMI 28.10 kg/m2 2017-09-21 Blood pressure systolic 122 mmHg 2017-09-21 Blood pressure diastolic 76 mmHg 2017-09-21 MEDICATIONS Medication Instructions Dosage Frequency Start Date End Date Duration S tatus Myrbetriq 50 MG Orally Once a day 1 tablet 24h Active Voltaren 1 % Transdermal 4 times a day on neck Active Pantoprazole Sodium 20 MG TAKE 1 TABLET BY MOUTH ONCE DAILY 90 Active Fetzima 120 mg Orally Once a day TAKE 1 CAPSULE BY MOUTH DAILY 24h 30 days Active A96-Ruibrx 1 MG Active Flonase 50 MCG/ACT Nasally twice a day 1 spray in each nostril 12h Jan, Active Mucinex 600 MG Orally every 12 hrs 1 tablet as needed 12h Active Magnesium 500 MG Orally Once a day 1 tablet with a meal 24h Dec, Active Gabapentin 100 mg Orally 3 times a day 1 capsule 8h 07 Jul, 2017 Active Estradiol 2 MG Orally Once a day 1 tablet 24h Active Orally Once a day 1 capsule 24h Act mitchell Vagifem 10 MCG Vaginal Two times a Week 1 tablet Active Naproxen 500 mg Orally every 12 hrs 1 tablet with food or milk as n eeded 12h Jun, Active Nitrofurantoin Monohyd Macro 100 mg Orally Once a day 1 capsule with food 24h Active Melatonin 5 mg Orally Once a day 2 tablets 24h May, Active Flexeril 10 mg by oral route 2 times a day 1 tablet 12h 18 Aug, 2014 30 Active HydrOXYzine HCl 10 mg Orally BID prn anxiety, MAX 45 tabs monthly 1 t ablet 30 days Active Cetirizine HCl 10 mg Orally Once a day 1 tablet 24h Jan, 7 Jan, 90 days Active Lidocaine-Prilocaine 2.5-2.5 % Active Probiotic Acidophilus Ac tive Depakote ER 500 mg Orally at bedtime 2 tabs 30 days Active Vitamin D3 2000 UNIT Orally Once a day as directed 24h Dec, Active Tramadol HCl 50 MG Orally every 6 hrs 1 tablet as needed for severe pain 6h 11 Jun, 2017 Not-Taking RESULTS No Results PROCEDURES Procedure Date Ordered Result Body Site [facility] VISIT ESTABLISHED PATIENT September 21, 2017 INSTRUCTIONS MEDICATIONS ADMINISTERED No Known [...]
--- OUTSIDE RECORDS SUMMARY | 2019-06-19 05:39 | XMS REPORT ---
Author Author Sydnie MORTON Organization [facility] Address [address] [place] [address] Care Team Providers Care Php Lamp Developer Name Role Phone JOHN MORTON Unavailable PROBLEMS Type Condition ICD9-CM Code [id number] Code Onset Dates Condition S tatus SNOMED Code Problem Hormone replacement therapy Z79.890 Ac tive 691365828 Problem Abnormal CT scan, head R93.0 Active 700064842 Problem Sensorineural hearing loss (SNHL) of both ears H90 .3 Active 526980786 Problem History of colon polyps Z86.010 Active 987905905 Problem Bruising, spontaneous R23.3 Active 647936667 Problem Generalized anxiety disorder F41.1 A ctive 57152748 Problem Arthralgia of hip, unspecified laterality M25.559 Active 20658967 Problem Hematuria, unspecified type R31.9 Ac tive 61039597 Problem Imbalance R26.89 Active 145435041 Problem Hammer toe of right foot M20.41 Activ e 652807547 Problem Plantar wart of right foot B07.0 Act mitchell [id number] Problem Sciatica of left side M54.32 Active 55872847 Problem Hyperlipidemia, unspecified hyperlipidemia type E7 8.5 Active 44825340 Problem Hypertension I10 Active 8993301 3 Problem Night sweats R61 Active 5947417 0 Problem Fibromyalgia M79.7 Active 7205697 7 Problem Major depressive disorder, recurrent episode, moderate F33.1 Active 351121952 Problem Acute left-sided low back pain with left-sided sciatica M54.42 Active 642444142 Problem Bladder spasm N32.89 Active 748583 006 Problem Gastritis without bleeding, unspecified chronicity, unspecified gastritis type K29.70 Active 062705546 Problem Bipolar 1 disorder, mixed F31.60 Acti ve 11016478 Problem Grief F43.20 Active 76714690 Problem Other chronic pain G89.29 Active 8 6211297 Problem Allergic rhinitis J30.9 Active 61 761621 Problem Hot flashes due to menopause N95.1 A ctive 114670080 Problem Ataxia R27.0 Active 06529634 Problem Hearing loss, unspecified laterality H91.90 Active 08271476 ALLERGIES No Information ENCOUNTERS Encounter Location Date Diagnosis [facility] [address] [facility] [id number] [address] [place] [address] Mar, [facility] [address] [facility] [id number] [address] [place] [address] Jan, [facility] [address] [facility] [id number] [address] [place] [address] Jan, [facility] [address] [facility] [id number] [address] [place] [address] Jan, [facility] [address] [place] [id number] [address] [place] [address] Dec, Bipolar 1 disorder, mixed F3 1.60 ; Generalized anxiety disorder F41.1 and Other detention (current) drug therapy Z79.899 [place] [address] [facility] [id number] [address] [place] [address] Dec, Other detention (current) dr ug therapy Z79.899 [facility] [address] [facility] [id number] [address] [place] [address] Dec, Bipolar 1 disorder, mixed F3 1.60 [facility] [address] [facility] [id number] [address] [place] [address] Dec, Bipolar 1 disorder, mixed F3 1.60 [facility] [address] [facility] [id number] [address] [place] [address] Nov, Bipolar 1 disorder, mixed F3 1.60 [facility] [address] [facility] [id number] [address] [place] [phone] Nov, Bipolar 1 disorder, mixed F3 1.60 [facility] [address] [facility] [id number] [address] [place] [address] Nov, Bipolar 1 disorder, mixed F3 1.60 [facility] [address] [facility] [id number] [address] [place] [address] Nov, Allergic rhinitis J30.9 [facility] [address] [facility] [id number] [address] [place] [address] Nov, Allergic rhinitis J30.9 [facility] [address] [facility] [id number] [address] [place] [address] Nov, [facility] [address] [facility] [id number] [address] [place] [address] Nov, Bipolar 1 disorder, mixed F3 1.60 [place] [address] [place] [id number] [place] [address] Nov, Fibromyalgia M79.7 and Aller gic rhinitis J30.9 [facility] [address] [facility] [id number] [address] [place] [address] October, Bipolar 1 disorder, mixed F3 1.60 [facility] [address] [place] [id number] [address] [place] [address] October, Acute nasopharyngitis J00 [facility] [address] [place] [id number] [address] [place] [address] October, Bitten or stung by nonvenomo us insect and other nonvenomous arthropods, initial encounter W57.XXXA and Insect bite (nonvenomous) of abdominal wall, initial encounter S30.861A [facility] [address] [place] [id number] [address] [place] [address] October, Insect bite (nonvenomous) of abdominal wall, initial encounter S30.861A ; Bitten or stung by nonvenomous insect and other nonvenomous arthropods, initial encounter W57.XXXA ; Allergic rhinitis J30.9 and Low back pain M54.5 [facility] [address] [facility] [id number] [address] [place] [address] October, Bipolar 1 disorder, mixed F3 1.60 [facility] [address] [id number] [address] [place] [address] October, [facility] [address] [id number] [address] [place] [address] October, [facility] [address] [id number] [address] [place] [address] October, Bipolar 1 disorder, mixed F3 1.60 [facility] [address] [id number] [address] [place] [address] Sep, Bipolar 1 disorder, mixed F3 1.60 [facility] [address] [id number] [address] [place] [address] Sep, Other chronic pain G89.29 [facility] [address] [facility] [id number] [address] [place] [address] Sep, [facility] [address] [facility] [id number] [address] [place] [address] Sep, Bipolar 1 disorder, mixed F3 1.60 [facility] [address] [id number] [address] [place] [address] Sep, Allergic rhinitis J30.9 and Sciatica of left side M54.32 [facility] [address] [facility] [id number] [address] [place] [address] Sep, Bipolar 1 disorder, mixed F3 1.60 [facility] [address] [facility] [id number] [address] [place] [address] Sep, Bipolar 1 disorder, mixed F3 1.60 and Generalized anxiety disorder F41.1 [facility] [address] [id number] [address] [place] [address] Aug, [facility] [address] [facility] [id number] [address] [place] [address] Aug, Bipolar 1 disorder, mixed F3 1.60 [facility] [address] [facility] [id number] [address] [place] [address] Aug, Bipolar 1 disorder, mixed F3 1.60 [facility] [address] [facility] [id number] [address] [place] [address] Aug, [facility] [address] [facility] [id number] [address] [place] [address] Aug, Generalized anxiety disorder F41.1 [facility] [address] [facility] [id number] [address] [place] [address] Aug, Bipolar 1 disorder, mixed F3 1.60 [facility] [address] [facility] [id number] [address] [place] [address] Aug, Plantar wart of right foot B 07.0 [facility] [address] [facility] [id number] [address] [place] [address] Aug, Bipolar 1 disorder, mixed F3 1.60 [facility] [address] [place] [id number] [address] [place] [address] Jul, Bipolar 1 disorder, mixed F3 1.60 [facility] [address] [facility] [id number] [address] [place] [address] Jul, [facility] [address] [facility] [id number] [address] [place] [address] Jul, Bipolar 1 disorder, mixed F3 1.60 [facility] [address] [place] [id number] [address] [place] [address] Jul, Generalized anxiety disorder F41.1 [facility] [address] [facility] [id number] [address] [place] [address] Jul, Bipolar 1 disorder, mixed F3 1.60 [facility] [address] [facility] [id number] [address] [place] [address] Jul, Acute left-sided low back pa in with left-sided sciatica M54.42 [facility] [address] [facility] [id number] [address] [place] [address] 05 Jul, 2017 Coccydynia M53.3 [facility] [address] [place] [id number] [address] [place] [address] Jun, Bipolar 1 disorder, mixed F3 1.60 [facility] [address] [place] [id number] [address] [place] [address] Jun, Acute nasopharyngitis J00 [facility] [address] [place] [id number] [address] [place] [address] Jun, Bipolar 1 disorder, mixed F3 1.60 [place] [address] [place] [id number] [address] [place] [address] Jun, Fibromyalgia M79.7 [place] [address] [place] [id number] [place] [address] Jun, Bipolar 1 disorder, mixed F3 1.60 [place] [address] [address] Jun, Fibromyalgia M79.7 and Bipol ar 1 disorder, mixed F31.60 [place] [address] [place] [address] May, Bipolar 1 disorder, mixed F3 1.60 ; Generalized anxiety disorder F41.1 and 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 [place] [address] [place] [address] May, Bipolar 1 disorder, mixed F3 1.60 [facility] [address] [place] [address] 14 May, 2017 Cough R05 and Body aches R52 [facility] [address] [place] [id number] [address] [place] [address] 10 May, 2017 Bladder spasm N32.89 and Acu te cystitis without hematuria N30.00 [place] [address] [place] [id number] [address] [place] [address] 07 May, 2017 Bipolar 1 disorder, mixed F3 1.60 [place] [address] [place] [id number] [address] [place] [address] Apr, [facility] [address] [place] [address] Apr, Major depressive disorder, r ecurrent episode, moderate F33.1 and Encounter for immunization Z23 [facility] [address] [address] Apr, Bipolar 1 disorder, mixed F3 1.60 [facility] [address] [address] Apr, Bipolar 1 disorder, mixed F3 1.60 [place] [address] [address] Apr, Bipolar 1 disorder, mixed F3 1.60 [place] [address] [address] Apr, Yeast vaginitis B37.3 [place] [address] [address] Apr, Bipolar 1 disorder, mixed F3 1.60 [facility] [address] [address] Apr, Encounter for immunization Z 23 and Cellulitis L03.90 [facility] [address] [address] Apr, Bipolar 1 disorder, mixed F3 1.60 [facility] [address] [place] [id number] [address] [place] [address] Mar, Bipolar 1 disorder, mixed F3 1.60 [place] [address] [address] Mar, Bipolar 1 disorder, mixed F3 1.60 [facility] [address] [address] Mar, Imbalance R26.89 and Encount er for immunization Z23 [facility] [address] [address] Mar, Generalized anxiety disorder F41.1 [facility] [address] [place] [id number] [address] [place] [address] Mar, Bipolar 1 disorder, mixed F3 1.60 [facility] [address] [place] [id number] [address] [place] [address] Mar, Generalized anxiety disorder F41.1 [place] [address] [place] [id number] [address] [place] [address] Mar, Bipolar 1 disorder, mixed F3 1.60 [place] [address] [place] [id number] [address] [place] [address] Mar, Bipolar 1 disorder, mixed F3 1.60 [place] [address] [place] [id number] [address] [place] [address] Feb, Bipolar 1 disorder, mixed F3 1.60 [place] [address] [place] [id number] [address] [place] [address] Feb, Bipolar 1 disorder, mixed F3 1.60 and Generalized anxiety disorder F41.1 [place] [address] [place] [id number] [address] [place] [address] Feb, Gastritis without bleeding, unspecified chronicity, unspecified gastritis type K29.70 ; Hammer toe of right foot M20.41 and Other viral warts B07.8 [place] [address] [place] [id number] [address] [place] [address] Feb, Bipolar 1 disorder, mixed F3 1.60 [place] [address] [place] [id number] [address] [place] [address] Feb, Bipolar 1 disorder, mixed F3 1.60 [place] [address] [place] [id number] [address] [place] [address] 05 Feb, 2017 Bipolar 1 disorder, mixed F3 1.60 [place] [address] [place] [id number] [address] [place] [address] 31 Aug, 2017 Encounter for screening mamm ogram for breast cancer Z12.31 ; Other viral warts B07.8 and Allergic rhinitis J30.9 [facility] [address] [facility] [id number] [address] [place] [address] Jan, Bipolar 1 disorder, mixed F3 1.60 [facility] [address] [facility] [id number] [address] [place] [address] Jan, Bipolar 1 disorder, mixed F3 1.60 [facility] [address] [facility] [id number] [address] [place] [address] Jan, [facility] [address] [facility] [id number] [address] [place] [address] Jan, Bipolar 1 disorder, mixed F3 1.60 [place] [address] [facility] [id number] [address] [place] [address] Jan, Bipolar 1 disorder, mixed F3 1.60 [place] [address] [facility] [id number] [address] [place] [address] Jan, Allergic rhinitis J30.9 ; He maturia R31.9 and Colon cancer screening Z12.11 [place] [address] [facility] [id number] [address] [place] [address] Dec, Bipolar 1 disorder, mixed F3 1.60 [place] [address] [facility] [id number] [address] [place] [address] Dec, Bipolar 1 disorder, mixed F3 1.60 ; Generalized anxiety disorder F41.1 and Other detention (current) drug therapy Z79.899 [facility] [address] [facility] [id number] [address] [place] [address] Dec, Bipolar 1 disorder, mixed F3 1.60 [place] [address] [facility] [id number] [address] [place] [address] Dec, Bipolar 1 disorder, mixed F3 1.60 [facility] [address] [facility] [id number] [address] [place] [address] Dec, Bipolar 1 disorder, mixed F3 1.60 [facility] [address] [id number] [address] [place] [address] Dec, Low back pain M54.5 and Recu rrent urinary tract infection N39.0 [facility] [address] [id number] [address] [place] [address] Nov, Bipolar 1 disorder, mixed F3 1.60 [facility] [address] [facility] [id number] [address] [place] [address] Nov, Bipolar 1 disorder, mixed F3 1.60 [facility] [address] [facility] [id number] [address] [place] [address] Nov, Bipolar 1 disorder, mixed F3 1.60 [facility] [address] [facility] [id number] [address] [place] [address] Nov, Bipolar 1 disorder, mixed F3 1.60 [place] [address] [facility] [id number] [address] [place] [address] Nov, [facility] [address] [facility] [id number] [address] [place] [address] Nov, Anesthesia of skin R20.0 ; F requent UTI N39.0 ; Tobacco abuse Z72.0 and Colon cancer screening Z12.11 [place] [address] [facility] [id number] [address] [place] [address] Nov, Bipolar 1 disorder, mixed F3 1.60 [facility] [address] [facility] [id number] [address] [place] [address] October, Bipolar 1 disorder, mixed F3 1.60 [facility] [address] [facility] [id number] [address] [place] [address] October, Bipolar 1 disorder, mixed F3 1.60 [facility] [address] [facility] [id number] [address] [place] [address] October, Bipolar 1 disorder, mixed F3 1.60 [facility] [address] [facility] [id number] [address] [place] [address] October, Bipolar 1 disorder, mixed F3 1.60 [place] [address] [address] October, Bipolar 1 disorder, mixed F3 1.60 [place] [address] [address] October, Cervicalgia M54.2 and Bipola r 1 disorder, mixed F31.60 [place] [address] [address] October, Hypertension I10 ; Hyperlipi demia, unspecified hyperlipidemia type E78.5 and Family history of thyroid disease Z83.49 [place] [address] [address] October, [place] [address] [address] October, Hypertension I10 ; Hyperlipi demia, unspecified hyperlipidemia type E78.5 and Family history of thyroid problem Z83.49 [place] [address] [address] October, Bipolar 1 disorder, mixed F3 1.60 [place] [address] [address] Sep, Bipolar 1 disorder, mixed F3 1.60 [place] [address] [address] Sep, Bipolar 1 disorder, mixed F3 1.60 [place] [address] [place] [id number] [address] [place] [address] Sep, Bipolar 1 disorder, mixed F3 1.60 [place] [address] [address] Sep, History of colon polyps Z86. 010 and Hematochezia K92.1 [place] [address] [place] [id number] [address] [place] [address] Sep, Major depressive disorder, r ecurrent episode, moderate F33.1 [facility] [address] [id number] [address] [place], [place] [address] Sep, Bipolar 1 disorder, mixed F3 1.60 [facility] [address] [facility] [id number] [address] [place] [address] Aug, Hot flashes due to menopause N95.1 [facility] [address] [facility] [id number] [address] [place] [address] Aug, Bipolar 1 disorder, mixed F3 1.60 [facility] [address] [facility] [id number] [address] [place] [address] Aug, [facility] [address] [facility] [id number] [address] [place], [place] [address] Aug, Bipolar 1 disorder, mixed F3 1.60 [facility] [address] [facility] [id number] [address] [place] [address] Aug, Bipolar 1 disorder, mixed F3 1.60 [facility] [address] [facility] [id number] [address] [place] [address] Aug, Hot flashes due to menopause N95.1 ; Cervicalgia M54.2 and Ataxia R27.0 [facility] [address] [facility] [id number] [address] [place] [address] Jul, Bipolar 1 disorder, mixed F3 1.60 [facility] [address] [facility] [id number] [address] [place] [address] Jul, Bipolar 1 disorder, mixed F3 1.60 [facility] [address] [facility] [id number] [address] [place] [address] Jul, Bipolar 1 disorder, mixed F3 1.60 [facility] [address] [facility] [id number] [address] [place] [address] Jul, Bipolar 1 disorder, mixed F3 1.60 [facility] [address] [facility] [id number] [place], [place] [id number] Jul, Bipolar 1 disorder, mixed F3 1.60 [place] [address] 08 Jul, 2016 Cervicalgia M54.2 ; Tremor R 25.1 ; Hearing abnormally acute, unspecified laterality H93.239 ; Alopecia L65.9 ; Encounter for immunization Z23 and Family history of thyroid disease Z83.49 [place] [address] Jul, Bipolar 1 disorder, mixed F3 1.60 [place] [address] Jun, [place] [address] Jun, Hearing disorder, unspecifie d laterality H93.299 [place] [address] Jun, Bipolar 1 disorder, mixed F3 1.60 [place] [address] Jun, Bipolar 1 disorder, mixed F3 1.60 [place] [address] [place] [address] Jun, Allergic rhinitis J30.9 [place] [address] [place] [address] Jun, Bipolar 1 disorder, mixed F3 1.60 [place] [address] [address] Jun, Bipolar 1 disorder, mixed F3 1.60 [place] [address] Jun, Allergic rhinitis J30.9 [place] [address] [address] Jun, Allergic rhinitis J30.9 [facility] [address] [id number] [address] [place] [address] Jun, Bipolar 1 disorder, mixed F3 1.60 [facility] [address] [id number] [address] [place] [address] May, Bipolar 1 disorder, mixed F3 1.60 [facility] [address] [id number] [address] [place] [phone] May, Bipolar 1 disorder, mixed F3 1.60 [facility] [address] [id number] [address] [place] [id number] May, [facility] [address] [id number] [address] [place] [phone] May, Bipolar 1 disorder, mixed F3 1.60 [facility] [address] [id number] [address] [place] [phone] May, Bipolar 1 disorder, mixed F3 1.60 [facility] [address] [id number] [address] [place] [id number] May, [facility] [address] [id number] [address] [place] [id number] May, [facility] [address] [id number] [address] [place] [id number] May, [facility] [address] [id number] [address] [place] [id number] May, Abdominal pain, unspecified location R10.9 [facility] [address] [id number] [address] [place] [id number] May, [facility] [address] [facility] [id number] [address] [place], [place] [id number] Apr, Hematuria R31.9 ; Ataxia R27 .0 and Hearing loss, unspecified laterality H91.90 [facility] [address] [facility] [id number] [address] [place] [address] Apr, Bipolar 1 disorder, mixed F3 1.60 [facility] [address] [place] [id number] [address] [place] [address] 11 Apr, 2016 Acute effusion of both middl e ears H65.193 [facility] [address] [place] [address] 10 Apr, 2016 Hematuria R31.9 and Pyelonep hritis N12 [facility] [address] [address] Apr, [place] [address] [address] Mar, Bipolar 1 disorder, mixed F3 1.60 [facility] [address] [address] Mar, [place] [address] [address] Mar, Bipolar 1 disorder, mixed F3 1.60 [place] [address] [address] Mar, Bipolar 1 disorder, mixed F3 1.60 [place] [address] [address] Mar, Encounter for immunization Z 23 and Gastritis without bleeding, unspecified chronicity, unspecified gastritis type K29.70 [place] [address] [place] [id number] [address] [place] [address] Mar, Bipolar 1 disorder, mixed F3 1.60 and Grief F43.20 [place] [address] [address] Mar, Gastritis without bleeding, unspecified chronicity, unspecified gastritis type K29.70 [facility] [address] [place] [id number] [address] [place] [address] Mar, Bipolar 1 disorder, mixed F3 1.60 [place] [address] [address] Mar, Gastritis without bleeding, unspecified chronicity, unspecified gastritis type K29.70 [facility] [address] [facility] [id number] [address] [place] [address] Mar, [facility] [address] [facility] [id number] [address] [place] [address] 27 Feb, 2016 Bipolar 1 disorder, mixed F3 1.60 [place] [address] [place] [id number] [place], [place] [address] Feb, Bipolar 1 disorder, mixed F3 1.60 and Grief F43.20 [place] [address] [facility] [id number] [address] [place] [address] Feb, Gastritis without bleeding, unspecified chronicity, unspecified gastritis type K29.70 [place] [address] [place] [id number] [address] [place] [address] 14 Feb, 2016 Bipolar 1 disorder, mixed F3 1.60 [facility] [address] [place] [id number] [address] [place] [address] Feb, Gastroesophageal reflux dise ase, esophagitis presence not specified K21.9 [facility] [address] [place] [id number] [place] [address] Jan, Bipolar 1 disorder, mixed F3 1.60 [place] [address] [place] [id number] [address] [place] [address] Jan, Bipolar 1 disorder, mixed F3 1.60 and Unsteady gait R26.81 [place] [address] [place] [id number] [address] [place] [address] Jan, Bipolar 1 disorder, mixed F3 1.60 [place] [address] [place] [id number] [place] [address] Jan, Bipolar 1 disorder, mixed F3 1.60 and 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 [place] [address] [place] [id number] [address] [place] [address] Jan, Bipolar 1 disorder, mixed F3 1.60 [facility] [address] [place] [id number] [address] [place] [address] Jan, Bipolar 1 disorder, mixed F3 1.60 [facility] [address] [place] [id number] [address] [place] [address] Jan, Bipolar 1 disorder, mixed F3 1.60 ; Grief F43.20 and Other detention (current) drug therapy Z79.899 [facility] [address] [place] [id number] [address] [place] [address] Jan, Bipolar 1 disorder, mixed F3 1.60 [place] [address] [place] [id number] [address] [place] [address] Dec, [facility] [address] [place] [id number] [address] [place] [address] Dec, Bipolar 1 disorder, mixed F3 1.60 ; Vitamin D deficiency, unspecified E55.9 ; H/O allergic rhinitis Z87.09 ; Other chronic pain G89.29 and Dorsalgia, unspecified M54.9 [facility] [address] [place] [id number] [address] [place] [address] Dec, [place] [address] [place] [id number] [address] [place] [address] Dec, Bipolar 1 disorder, mixed F3 1.60 [facility] [address] [place] [id number] [address] [place] [address] Dec, Major depressive disorder, r ecurrent episode, moderate F33.1 [facility] [address] [place] [id number] [address] [place] [address] Dec, Major depressive disorder, r ecurrent episode, moderate F33.1 [facility] [address] [place] [id number] [address] [place] [address] Nov, [facility] [address] [place] [id number] [address] [place] [address] Nov, Bipolar 1 disorder, mixed F3 1.60 [place] [address] [facility] [id number] [address] [place] [address] Nov, Major depressive disorder, r ecurrent episode, moderate F33.1 [place] [address] [facility] [id number] [address] [place] [address] Nov, Cervicalgia M54.2 ; Arthralg ia of hip, unspecified laterality M25.559 ; Allergic rhinitis J30.9 and Hormone replacement therapy Z79.890 [facility] [address] [facility] [id number] [address] [place] [address] 13 Nov, 2015 Other seasonal allergic rhin itis J30.2 [place] [address] [facility] [id number] [address] [place] [address] October, Major depressive disorder, r ecurrent episode, moderate F33.1 [place] [address] [facility] [id number] [address] [place] [address] October, Major depressive disorder, r ecurrent episode, moderate F33.1 and Arthralgia of hip, unspecified laterality M25.559 [place] [address] [facility] [id number] [address] [place] [address] October, Grief F43.20 ; Hypertension I10 ; Hyperlipidemia, unspecified hyperlipidemia type E78.5 ; Other chronic pain G89.29 and Allergic rhinitis, unspecified allergic rhinitis type J30.9 [place] [address] [facility] [id number] [address] [place] [address] October, Major depressive disorder, r ecurrent episode, moderate F33.1 [place] [address] [facility] [id number] [address] [place] [address] Sep, Major depressive disorder, r ecurrent episode, moderate F33.1 [place] [address] [facility] [id number] [address] [place] [address] Sep, [place] [address] [facility] [id number] [address] [place] [address] Sep, Major depressive disorder, r ecurrent episode, moderate F33.1 [facility] [address] [place] [id number] [address] [place] [address] Sep, Grief F43.20 [facility] [address] [place] [id number] [address] [place] [address] Aug, Major depressive disorder, r ecurrent episode, moderate F33.1 [place] [address] [place] [id number] [place] [address] Aug, Bipolar 1 disorder, mixed F3 1.60 [place] [address] [place] [id number] [place] [address] Aug, Allergic rhinitis J30.9 ; Ce rvicalgia M54.2 and Low back pain M54.5 [place] [address] [place] [id number] [place] [address] Aug, Major depressive disorder, r ecurrent episode, moderate F33.1 [facility] [address] [place] [id number] [address] [place] [address] Aug, Sinusitis J32.9 and Tobacco 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 [facility] [id number] [place] [address] Aug, [facility] [address] [place] [address] Aug, Depressive disorder, not els ewhere classified F32.9 ; Hormone replacement therapy Z79.[address] scan, head R93.0 [place] [address] [facility] [id number] [address] [place] [address] Aug, Major depressive disorder, r ecurrent episode, moderate F33.1 [facility] [address] [place] [id number] [address] [place] [address] Jul, Major depressive disorder, r ecurrent episode, moderate F33.1 [facility] [address] [place] [id number] [address] [place] [address] Jul, Abdominal pain R10.9 and Hyp ertension I10 [facility] [address] [id number] [address] [place] [address] Jul, [facility] [address] [facility] [id number] [address] [place] [address] Jul, Major depressive disorder, r ecurrent episode, moderate F33.1 [facility] [address] [facility] [id number] [address] [place] [address] Jul, [facility] [address] [id number] [address] [place] [address] Jul, [facility] [address] [id number] [address] [place] [address] Jun, [facility] [address] [place] [id number] [address] [place] [address] Jun, Depressive disorder, not els ewhere classified F32.9 [facility] [address] [facility] [id number] [address] [place] [address] Jun, [facility] [address] [facility] [id number] [address] [place] [address] Jun, [facility] [address] [facility] [id number] [address] [place] [address] Jun, Arthralgia of hip, unspecifi ed laterality M25.559 ; Bruising, spontaneous R23.3 and Night sweats R61 [facility] [address] [facility] [id number] [address] [place] [address] Jun, [facility] [address] [facility] [id number] [address] [place] [address] Jun, [facility] [address] [facility] [id number] [address] [place] [address] May, [facility] [address] [facility] [id number] [address] [place] [address] May, Myalgia M79.1 and Screening, lipid Z13.220 [facility] [address] [id number] [address] [place] [address] Apr, Status post cervical spinal fusion Z98.1 ; Fibromyalgia M79.7 and Unsteady gait R26.81 [facility] [address] [id number] [address] [place] [address] Nov, [facility] [address] [id number] [address] [place] [address] Nov, [facility] [address] [id number] [address] [place] [address] October, [facility] [address] [id number] [address] [place] [address] October, [facility] [address] [id number] [address] [place] [address] October, [facility] [address] [id number] [address] [place] [address] October, [facility] [address] [id number] [address] [place] [address] October, [facility] [address] [facility] [id number] [address] [place] [address] October, Dysuria 788.1 ; Nausea 787.0 2 and Urinary tract infection 599.0 [facility] [address] [id number] [address] [place] [address] Sep, [facility] [address] [id number] [address] [place] [address] Sep, [facility] [address] [id number] [address] [place] [address] Aug, [facility] [address] [id number] [address] [place] [address] Aug, [facility] [address] [id number] [address] [place] [address] Aug, [facility] [address] [id number] [address] [place] [address], [place] [address] 24 Aug, 2014 [facility] [address] [id number] [address] [place] [address], [place] [address] 23 Aug, 2014 [facility] [address] [id number] [address] [place] [address], [place] [address] 19 Aug, 2014 [facility] [address] [id number] [address] [place] [address], [place] [address] 19 Aug, 2014 [facility] [address] [id number] [address] [place] [address], [place] [address] 19 Aug, 2014 [facility] [address] [id number] [address] [place] [address], [place] [address] 19 Aug, 2014 [facility] [address] [id number] [address] [place] [address], [place] [address] 18 Aug, 2014 [facility] [address] [id number] [address] [place] [address], [place] [address] 18 Aug, 2014 [facility] [address] [id number] [address] [place] [address], [place] [address] 13 Aug, 2014 [facility] [address] [id number] [address] [place] [address], [place] [address] 13 Aug, 2014 [facility] [address] [id number] [address] [place] [address], [place] [address] 11 Aug, 2014 [facility] [address] [id number] [address] [place] [address], [place] [address] 11 Aug, 2014 [facility] [address] [id number] [address] [place] [address], [place] [address] 06 Aug, 2014 [facility] [address] [id number] [address] [place] [address], [place] [address] 06 Aug, 2014 [facility] [address] [id number] [address] [place] [address], [place] [address] 05 Aug, 2014 [facility] [address] [id number] [address] [place] [address], [place] [address] Aug, [facility] [address] [id number] [address] [place] [address], [place] [address] Aug, [facility] [address] [id number] [address] [place] [address], [place] [address] Aug, [facility] [address] [id number] [address] [place] [address], [place] [address] Aug, [facility] [address] [id number] [address] [place] [address], [place] [address] Jul, 2014 [facility] [address] [id number] [address] [place] [address], [place] [address] Jul, 2014 [facility] [address] [id number] [address] [place] [address], [place] [address] Jul, 2014 [facility] [address] [id number] [address] [place] [address], [place] [address] Jul, 2014 [facility] [address] [id number] [address] [place] [address], [place] [address] Jul, 2014 [facility] [address] [id number] [address] [place] [address], [place] [address] Jul, 2014 [facility] [address] [id number] [address] [place] [address], [place] [address] Jul, 2014 [facility] [address] [id number] [address] [place] [address], [place] [address] Jul, 2014 [facility] [address] [id number] [address] [place] [address] Jul, 2014 [facility] [address] [id number] [address] [place] [address], [place] [address] Jul, 2014 [facility] [address] [id number] [address] [place] [address] Jul, 2014 [facility] [address] [id number] [address] [place] [address], [place] [address] Jul, [facility] [address] [id number] [address] [place] [address], [place] [address] Jul, [facility] [address] [id number] [address] [place] [address], [place] [address] Jul, [facility] [address] [id number] [address] [place] [address], [place] [address] Jun, [facility] [address] [id number] [address] [place] [address], [place] [address] Jun, [facility] [address] [id number] [address] [place] [address], [place] [address] Jun, [facility] [address] [id number] [address] [place] [address], [place] [address] Jun, [facility] [address] [id number] [address] [place] [address], [place] [address] Jun, [facility] [address] [id number] [address] [place] [address], [place] [address] Jun, [facility] [address] [id number] [address] [place] [address], [place] [address] May, [facility] [address] [id number] [address] [place] [address], [place] [address] May, [facility] [address] [id number] [address] [place] [address], [place] [address] May, [facility] [address] [id number] [address] [place] [address], [place] [address] May, [facility] [address] [id number] [address] [place] [address], [place] [address] May, [facility] [address] [id number] [address] [place] [address], [place] [address] May, [facility] [address] [id number] [address] [place] [address], [place] [address] Apr, [facility] [address] [id number] [address] [place] [address], [place] [address] Apr, [facility] [address] [id number] [address] [place] [address], [place] [address] Apr, [facility] [address] [id number] [address] [place] [address], [place] [address] Apr, [facility] [address] [id number] [address] [place] [address], [place] [address] Apr, [facility] [address] [id number] [address] [place] [address], [place] [address] Apr, [facility] [address] [id number] [address] [place] [address], [place] [address] Mar, [facility] [address] [id number] [address] [place] [address], [place] [address] Mar, [facility] [address] [id number] [address] [place] [address], [place] [address] Mar, [facility] [address] [id number] [address] [place] [address], [place] [address] Mar, [facility] [address] [id number] [address] [place] [address], [place] [address] Mar, [facility] [address] [id number] [address] [place] [address], [place] [address] Mar, [facility] [address] [id number] [address] [place] [address], [place] [address] Mar, [facility] [address] [id number] [address] [place] [address] Mar, [facility] [address] [id number] [address] [place] [address], [place] [address] Mar, [facility] [address] [id number] [address] [place] [address], [place] [address] Mar, [facility] [address] [id number] [address] [place] [address] Mar, [facility] [address] [id number] [address] [place] [address], [place] [address] Mar, [facility] [address] [id number] [address] [place] [address], [place] [address] 30 Feb, 2014 [facility] [address] [id number] [address] [place] [address], [place] [address] Feb, [facility] [address] [id number] [address] [place] [address], [place] [address] Feb, [facility] [address] [id number] [address] [place] [address], [place] [address] Feb, [facility] [address] [id number] [address] [place] [address], [place] [address] Feb, [facility] [address] [id number] [address] [place] [address], [place] [id number] Feb, [facility] [address] [id number] [address] [place] [address], [place] [id number] Feb, [facility] [address] [id number] [address] [place] [address], [place] [id number] Jan, [facility] [address] [id number] [address] [place] [address], [place] [address] Jan, [facility] [address] [id number] [address] [place] [address], [place] [address] Jan, [facility] [address] [id number] [address] [place] [address], [place] [id number] Dec, [facility] [address] [id number] [address] [place] [address], [place] [address] Dec, [facility] [address] [id number] [address] [place] [address], [place] [id number] Dec, [facility] [address] [id number] [address] [place] [address], [place] [address] Dec, [facility] [address] [id number] [address] [place] [address], [place] [id number] Sep, [facility] [address] [id number] [address] [place] [address], [place] [address] Sep, [facility] [address] [id number] [address] [place] [address], [place] [address] Sep, [facility] [address] [id number] [address] [place] [address], [place] [address] Sep, [facility] [address] [id number] [address] [place] [address], [place] [address] Sep, [facility] [address] [id number] [address] [place] [address], [place] [id number] Sep, [facility] [address] [id number] [address] [place] [address], [place] [id number] Sep, [facility] [address] [id number] [address] [place] [address], [place] [address] Sep, [facility] [address] [id number] [address] [place] [address], [place] [address] Aug, [facility] [address] [id number] [address] [place] [address], [place] [address] Aug, [facility] [address] [id number] [address] [place] [address], [place] [address] May, [facility] [address] [id number] [address] [place] [address], [place] [id number] May, [facility] [address] [id number] [address] [place] [address], [place] [address] Apr, [facility] [address] [id number] [address] [place] [address], [place] [address] Apr, [facility] [address] [id number] [address] [place] [address], [place] [address] Apr, [facility] [address] [id number] [address] [place] [address], [place] [address] Apr, [facility] [address] [id number] [address] [place] [address], [place] [address] Apr, [facility] [address] [id number] [address] [place] [address], [place] [address] Apr, [facility] [address] [id number] [address] [place] [address], [place] [address] 18 May, 2012 [facility] [address] [id number] [address] [place] [address], [place] [address] 18 May, 2012 [facility] [address] [id number] [address] [place] [address], [place] [address] 15 May, 2012 [facility] [address] [id number] [address] [place] [address], [place] [address] 15 May, 2012 [facility] [address] [id number] [address] [place] [address], [place] [id number] 13 May, 2012 [facility] [address] [id number] [address] [place] [address], [place] [address] 13 May, 2012 [facility] [address] [id number] [address] [place] [address], [place] [id number] 13 Apr, 2012 [facility] [address] [id number] [address] [place] [address], [place] [id number] 13 Apr, 2012 [facility] [address] [id number] [address] [place] [address], [place] [id number] 08 Apr, 2012 [facility] [address] [id number] [address] [place] [address], [place] [id number] Apr, [facility] [address] [id number] [address] [place] [address], [place] [id number] Apr, [facility] [address] [id number] [address] [place] [address], [place] [address] Apr, [facility] [address] [id number] [address] [place] [address], [place] [address] Apr, [facility] [address] [id number] [address] [place] [address], [place] [id number] Apr, [facility] [address] [id number] [address] [place] [address], [place] [address] Apr, [facility] [address] [id number] [address] [place] [address], [place] [id number] Apr, [facility] [address] [id number] [address] [place] [address], [place] [address] Mar, [facility] [address] [id number] [address] [place] [address], [place] [address] Mar, [facility] [address] [id number] [address] [place] [address], [place] [id number] Mar, [facility] [address] [id number] [address] [place] [address], [place] [id number] Mar, [facility] [address] [id number] [address] [place] [address], [place] [address] Mar, [facility] [address] [id number] [address] [place] [id number] Mar, [facility] [address] [id number] [address] [place] [address], [place] [address] Mar, [facility] [address] [id number] [address] [place] [id number] Mar, [facility] [address] [id number] [address] [place] [id number] Mar, [facility] [address] [id number] [address] [place] [id number] Feb, [facility] [address] [id number] [address] [place] [id number] 16 Feb, 2012 [facility] [address] [id number] [address] [place] [id number] 11 Feb, 2012 [facility] [address] [id number] [address] [place] [id number] Jan, [facility] [address] [id number] [address] [place] [id number] Jan, [facility] [address] [id number] [address] [place] [address], [place] [address] Jan, [facility] [address] [id number] [address] [place] [address], [place] [address] Jan, [facility] [address] [id number] [address] [place] [address], [place] [address] Jan, [facility] [address] [id number] [address] [place] [address], [place] [id number] Jan, [facility] [address] [id number] [address] [place] [address], [place] [id number] 16 Jan, 2012 [facility] [address] [id number] [address] [place] [address], [place] [address] Jan, [facility] [address] [id number] [address] [place] [address], [place] [address] Jan, [facility] [address] [id number] [address] [place] [address], [place] [address] Jan, [facility] [address] [id number] [address] [place] [address], [place] [address] Dec, [facility] [address] [id number] [address] [place] [address], [place] [address] Dec, [facility] [address] [id number] [address] [place] [address], [place] [address] Dec, [facility] [address] [id number] [address] [place] [address], [place] [address] Dec, [facility] [address] [id number] [address] [place] [address], [place] [address] Nov, [facility] [address] [id number] [address] [place] [address], [place] [address] Nov, [facility] [address] [id number] [address] [place] [address], [place] [address] Nov, [facility] [address] [id number] [address] [place] [id number] October, [facility] [address] [id number] [address] [place] [id number] October, [facility] [address] [id number] [address] [place] [id number] October, [facility] [address] [id number] [address] [place] [id number] October, [facility] [address] [id number] [address] [place] [id number] October, [facility] [address] [id number] [address] [place] [id number] October, [facility] [address] [id number] [address] [place] [id number] Aug, [facility] [address] [id number] [address] [place] [id number] Mar, [facility] [address] [id number] [address] [place] [id number] Nov, [facility] [address] [id number] [address] [place] [address] May, [facility] [address] [id number] [address] [place] [id number] May, [facility] [address] [id number] [address] [place] [address] Apr, [facility] [address] [id number] [address] [place] [id number] Mar, [facility] [address] [id number] [address] [place] [id number] Mar, IMMUNIZATIONS No Known Immunizations SOCIAL HISTORY Never Assessed REASON FOR VISIT BH f/u PLAN OF CARE Activity Details Follow Up Next available Reason:BH F/U VITAL SIGNS MEDICATIONS Unknown Medications RESULTS No Results PROCEDURES Procedure Date Ordered Result Body Site [facility] VISIT MENTAL HEALTH ESTAB PT September 12, 2017 Psychotherapy, patient &/family, 45 minutes, established pat ient September 12, 2017 INSTRUCTIONS MEDICATIONS ADMINISTERED No Known [...]
--- OUTSIDE RECORDS SUMMARY | 2019-06-19 05:40 | XMS REPORT ---
Author Author Sydnie MORTON Organization 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 Name Role Phone JOHN MORTON Unavailable PROBLEMS Type Condition ICD9-CM Code ZNC53-YT Code Onset Dates Condition S tatus SNOMED Code Problem Hormone replacement therapy Z79.890 Ac tive 680551043 Problem Abnormal CT scan, head R93.0 Active 066619147 Problem Sensorineural hearing loss (SNHL) of both ears H90 .3 Active 822248834 Problem History of colon polyps Z86.010 Active 646888677 Problem Bruising, spontaneous R23.3 Active 806506581 Problem Generalized anxiety disorder F41.1 A ctive 58563465 Problem Arthralgia of hip, unspecified laterality M25.559 Active 33753846 Problem Hematuria, unspecified type R31.9 Ac tive 29991640 Problem Imbalance R26.89 Active 383960722 Problem Hammer toe of right foot M20.41 Activ e 179276811 Problem Plantar wart of right foot B07.0 Act mitchell [id number] Problem Sciatica of left side M54.32 Active 43032231 Problem Hyperlipidemia, unspecified hyperlipidemia type E7 8.5 Active 46966914 Problem Hypertension I10 Active 4897076 3 Problem Night sweats R61 Active 2888423 0 Problem Fibromyalgia M79.7 Active 9099917 7 Problem Major depressive disorder, recurrent episode, moderate F33.1 Active 353716979 Problem Acute left-sided low back pain with left-sided sciatica M54.42 Active 007877129 Problem Bladder spasm N32.89 Active 642616 006 Problem Gastritis without bleeding, unspecified chronicity, unspecified gastritis type K29.70 Active 402457402 Problem Bipolar 1 disorder, mixed F31.60 Acti ve 74732795 Problem Grief F43.20 Active 51793852 Problem Other chronic pain G89.29 Active 8 9771976 Problem Allergic rhinitis J30.9 Active 61 864656 Problem Hot flashes due to menopause N95.1 A ctive 233216186 Problem Ataxia R27.0 Active 64734006 Problem Hearing loss, unspecified laterality H91.90 Active 52464203 ALLERGIES No Information ENCOUNTERS Encounter Location Date Diagnosis [facility] [address] [facility] [id number] [address] [place] [address] Mar, [facility] [address] [facility] [id number] [address] [place] [address] Jan, [facility] [address] [facility] [id number] [address] [place] [address] Jan, [facility] [address] [facility] [id number] [address] [place] [address] Jan, [facility] [address] [place] [id number] [address] [place] [address] Dec, Bipolar 1 disorder, mixed F3 1.60 ; Generalized anxiety disorder F41.1 and Other mcc (current) drug therapy Z79.899 [place] [address] [facility] [id number] [address] [place] [address] Dec, Other mcc (current) dr ug therapy Z79.899 [facility] [address] [facility] [id number] [address] [place] [address] Dec, Bipolar 1 disorder, mixed F3 1.60 [facility] [address] [facility] [id number] [address] [place] [address] Dec, Bipolar 1 disorder, mixed F3 1.60 [facility] [address] [facility] [id number] [address] [place] [address] Nov, Bipolar 1 disorder, mixed F3 1.60 [facility] [address] [facility] [id number] [address] [place] [address] Nov, Bipolar 1 disorder, mixed F3 1.60 [facility] [address] [facility] [id number] [address] [place] [address] Nov, Bipolar 1 disorder, mixed F3 1.60 [facility] [address] [facility] [id number] [address] [place] [address] Nov, Allergic rhinitis J30.9 [facility] [address] [facility] [id number] [address] [place] [address] Nov, Allergic rhinitis J30.9 [facility] [address] [facility] [id number] [address] [place] [address] Nov, [facility] [address] [facility] [id number] [address] [place] [address] Nov, Bipolar 1 disorder, mixed F3 1.60 [place] [address] [place] [id number] [place] [address] Nov, Fibromyalgia M79.7 and Aller gic rhinitis J30.9 [facility] [address] [facility] [id number] [address] [place] [address] October, Bipolar 1 disorder, mixed F3 1.60 [facility] [address] [place] [id number] [address] [place] [address] October, Acute nasopharyngitis J00 [facility] [address] [place] [id number] [address] [place] [address] October, Bitten or stung by nonvenomo us insect and other nonvenomous arthropods, initial encounter W57.XXXA and Insect bite (nonvenomous) of abdominal wall, initial encounter S30.861A [facility] [address] [place] [id number] [address] [place] [address] October, Insect bite (nonvenomous) of abdominal wall, initial encounter S30.861A ; Bitten or stung by nonvenomous insect and other nonvenomous arthropods, initial encounter W57.XXXA ; Allergic rhinitis J30.9 and Low back pain M54.5 [facility] [address] [facility] [id number] [address] [place] [address] October, Bipolar 1 disorder, mixed F3 1.60 [facility] [address] [id number] [address] [place] [address] October, [facility] [address] [id number] [address] [place] [address] October, [facility] [address] [id number] [address] [place] [address] October, Bipolar 1 disorder, mixed F3 1.60 [facility] [address] [id number] [address] [place] [address] Sep, Bipolar 1 disorder, mixed F3 1.60 [facility] [address] [id number] [address] [place] [address] Sep, Other chronic pain G89.29 [facility] [address] [facility] [id number] [address] [place] [address] Sep, [facility] [address] [facility] [id number] [address] [place] [address] Sep, Bipolar 1 disorder, mixed F3 1.60 [facility] [address] [id number] [address] [place] [address] Sep, Allergic rhinitis J30.9 and Sciatica of left side M54.32 [facility] [address] [facility] [id number] [address] [place] [address] Sep, Bipolar 1 disorder, mixed F3 1.60 [facility] [address] [facility] [id number] [address] [place] [address] Sep, Bipolar 1 disorder, mixed F3 1.60 and Generalized anxiety disorder F41.1 [facility] [address] [id number] [address] [place] [address] Aug, [facility] [address] [facility] [id number] [address] [place] [address] Aug, Bipolar 1 disorder, mixed F3 1.60 [facility] [address] [facility] [id number] [address] [place] [address] Aug, Bipolar 1 disorder, mixed F3 1.60 [facility] [address] [facility] [id number] [address] [place] [address] Aug, [facility] [address] [facility] [id number] [address] [place] [address] Aug, Generalized anxiety disorder F41.1 [facility] [address] [facility] [id number] [address] [place] [address] Aug, Bipolar 1 disorder, mixed F3 1.60 [facility] [address] [facility] [id number] [address] [place] [address] Aug, Plantar wart of right foot B 07.0 [facility] [address] [facility] [id number] [address] [place] [address] Aug, Bipolar 1 disorder, mixed F3 1.60 [facility] [address] [place] [id number] [address] [place] [address] Jul, Bipolar 1 disorder, mixed F3 1.60 [facility] [address] [facility] [id number] [address] [place] [address] Jul, [facility] [address] [facility] [id number] [address] [place] [address] Jul, Bipolar 1 disorder, mixed F3 1.60 [facility] [address] [place] [id number] [address] [place] [address] Jul, Generalized anxiety disorder F41.1 [facility] [address] [facility] [id number] [address] [place] [address] Jul, Bipolar 1 disorder, mixed F3 1.60 [facility] [address] [facility] [id number] [address] [place] [address] Jul, Acute left-sided low back pa in with left-sided sciatica M54.42 [facility] [address] [facility] [id number] [address] [place] [address] 05 Jul, [address] [facility] [address] [place] [id number] [address] [place] [address] Jun, Bipolar 1 disorder, mixed F3 1.60 [facility] [address] [place] [id number] [address] [place] [address] Jun, Acute nasopharyngitis J00 [facility] [address] [place] [id number] [address] [place] [address] Jun, Bipolar 1 disorder, mixed F3 1.60 [place] [address] [place] [id number] [address] [place] [address] Jun, Fibromyalgia M79.7 [place] [address] [place] [id number] [place] [address] Jun, Bipolar 1 disorder, mixed F3 1.60 [place] [address] [address] Jun, Fibromyalgia M79.7 and Bipol ar 1 disorder, mixed F31.60 [place] [address] [place] [address] May, Bipolar 1 disorder, mixed F3 1.60 ; Generalized anxiety disorder F41.1 and 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 [place] [address] [place] [address] May, Bipolar 1 disorder, mixed F3 1.60 [facility] [address] [place] [address] 14 May, 2017 Cough R05 and Body aches R52 [facility] [address] [place] [id number] [address] [place] [address] 10 May, 2017 Bladder spasm N32.89 and Acu te cystitis without hematuria N30.00 [place] [address] [place] [id number] [address] [place] [address] 07 May, 2017 Bipolar 1 disorder, mixed F3 1.60 [place] [address] [place] [id number] [address] [place] [address] Apr, [facility] [address] [place] [address] Apr, Major depressive disorder, r ecurrent episode, moderate F33.1 and Encounter for immunization Z23 [facility] [address] [address] Apr, Bipolar 1 disorder, mixed F3 1.60 [facility] [address] [address] Apr, Bipolar 1 disorder, mixed F3 1.60 [place] [address] [address] Apr, Bipolar 1 disorder, mixed F3 1.60 [place] [address] [address] Apr, Yeast vaginitis B37.3 [place] [address] [address] Apr, Bipolar 1 disorder, mixed F3 1.60 [facility] [address] [address] Apr, Encounter for immunization Z [address] [facility] [address] [address] Apr, Bipolar 1 disorder, mixed F3 1.60 [facility] [address] [place] [id number] [address] [place] [address] Mar, Bipolar 1 disorder, mixed F3 1.60 [place] [address] [address] Mar, Bipolar 1 disorder, mixed F3 1.60 [facility] [address] [address] Mar, Imbalance R26.89 and Encount er for immunization Z23 [facility] [address] [address] Mar, Generalized anxiety disorder F41.1 [facility] [address] [place] [id number] [address] [place] [address] Mar, Bipolar 1 disorder, mixed F3 1.60 [facility] [address] [place] [id number] [address] [place] [address] Mar, Generalized anxiety disorder F41.1 [place] [address] [place] [id number] [address] [place] [address] Mar, Bipolar 1 disorder, mixed F3 1.60 [place] [address] [place] [id number] [address] [place] [address] Mar, Bipolar 1 disorder, mixed F3 1.60 [place] [address] [place] [id number] [address] [place] [address] Feb, Bipolar 1 disorder, mixed F3 1.60 [place] [address] [place] [id number] [address] [place] [address] Feb, Bipolar 1 disorder, mixed F3 1.60 and Generalized anxiety disorder F41.1 [place] [address] [place] [id number] [address] [place] [address] Feb, Gastritis without bleeding, unspecified chronicity, unspecified gastritis type K29.70 ; Hammer toe of right foot M20.41 and Other viral warts B07.8 [place] [address] [place] [id number] [address] [place] [address] Feb, Bipolar 1 disorder, mixed F3 1.60 [place] [address] [place] [id number] [address] [place] [address] Feb, Bipolar 1 disorder, mixed F3 1.60 [place] [address] [place] [id number] [address] [place] [address] 05 Feb, 2017 Bipolar 1 disorder, mixed F3 1.60 [place] [address] [place] [id number] [address] [place] [address] 31 Aug, 2017 Encounter for screening mamm ogram for breast cancer Z12.31 ; Other viral warts B07.8 [address] J[address].9 [facility] [address] [facility] [id number] [address] [place] [address] Jan, Bipolar 1 disorder, mixed F3 1.60 [facility] [address] [facility] [id number] [address] [place] [address] Jan, Bipolar 1 disorder, mixed F3 1.60 [facility] [address] [facility] [id number] [address] [place] [address] Jan, [facility] [address] [facility] [id number] [address] [place] [address] Jan, Bipolar 1 disorder, mixed F3 1.60 [place] [address] [facility] [id number] [address] [place] [address] Jan, Bipolar 1 disorder, mixed F3 1.60 [place] [address] [facility] [id number] [address] [place] [address] Jan, Allergic rhinitis J30.9 ; He maturia R31.9 and Colon cancer screening Z12.11 [place] [address] [facility] [id number] [address] [place] [address] Dec, Bipolar 1 disorder, mixed F3 1.60 [place] [address] [facility] [id number] [address] [place] [address] Dec, Bipolar 1 disorder, mixed F3 1.60 ; Generalized anxiety disorder F41.1 and Other mcc (current) drug therapy Z79.899 [facility] [address] [facility] [id number] [address] [place] [address] Dec, Bipolar 1 disorder, mixed F3 1.60 [place] [address] [facility] [id number] [address] [place] [address] Dec, Bipolar 1 disorder, mixed F3 1.60 [facility] [address] [facility] [id number] [address] [place] [address] Dec, Bipolar 1 disorder, mixed F3 1.60 [facility] [address] [id number] [address] [place] [address] Dec, Low back pain M54.5 and Recu rrent urinary tract infection N39.0 [facility] [address] [id number] [address] [place] [address] Nov, Bipolar 1 disorder, mixed F3 1.60 [facility] [address] [facility] [id number] [address] [place] [address] Nov, Bipolar 1 disorder, mixed F3 1.60 [facility] [address] [facility] [id number] [address] [place] [address] Nov, Bipolar 1 disorder, mixed F3 1.60 [facility] [address] [facility] [id number] [address] [place] [address] Nov, Bipolar 1 disorder, mixed F3 1.60 [place] [address] [facility] [id number] [address] [place] [address] Nov, [facility] [address] [facility] [id number] [address] [place] [address] Nov, Anesthesia of skin R20.0 ; F requent UTI N39.0 ; Tobacco abuse Z72.0 and Colon cancer screening Z12.11 [place] [address] [facility] [id number] [address] [place] [address] Nov, Bipolar 1 disorder, mixed F3 1.60 [facility] [address] [facility] [id number] [address] [place] [address] October, Bipolar 1 disorder, mixed F3 1.60 [facility] [address] [facility] [id number] [address] [place] [address] October, Bipolar 1 disorder, mixed F3 1.60 [facility] [address] [facility] [id number] [address] [place] [address] October, Bipolar 1 disorder, mixed F3 1.60 [facility] [address] [facility] [id number] [address] [place] [address] October, Bipolar 1 disorder, mixed F3 1.60 [place] [address] [address] October, Bipolar 1 disorder, mixed F3 1.60 [place] [address] [address] October, Cervicalgia M54.2 and Bipola r 1 disorder, mixed F31.60 [place] [address] [address] October, Hypertension I10 ; Hyperlipi demia, unspecified hyperlipidemia type E78.5 and Family history of thyroid disease Z83.49 [place] [address] [address] October, [place] [address] [address] October, Hypertension I10 ; Hyperlipi demia, unspecified hyperlipidemia type E78.5 and Family history of thyroid problem Z83.49 [place] [address] [address] October, Bipolar 1 disorder, mixed F3 1.60 [place] [address] [address] Sep, Bipolar 1 disorder, mixed F3 1.60 [place] [address] [address] Sep, Bipolar 1 disorder, mixed F3 1.60 [place] [address] [place] [id number] [address] [place] [address] Sep, Bipolar 1 disorder, mixed F3 1.60 [place] [address] [address] Sep, History of colon polyps Z86. 010 and Hematochezia K92.1 [place] [address] [place] [id number] [address] [place] [address] Sep, Major depressive disorder, r ecurrent episode, moderate F33.1 [facility] [address] [id number] [address] [place], [place] [address] Sep, Bipolar 1 disorder, mixed F3 1.60 [facility] [address] [facility] [id number] [address] [place] [address] Aug, Hot flashes due to menopause N95.1 [facility] [address] [facility] [id number] [address] [place] [address] Aug, Bipolar 1 disorder, mixed F3 1.60 [facility] [address] [facility] [id number] [address] [place] [address] Aug, [facility] [address] [facility] [id number] [address] [place], [place] [address] Aug, Bipolar 1 disorder, mixed F3 1.60 [facility] [address] [facility] [id number] [address] [place] [address] Aug, Bipolar 1 disorder, mixed F3 1.60 [facility] [address] [facility] [id number] [address] [place] [address] Aug, Hot flashes due to menopause N95.1 ; Cervicalgia M54.[address] [facility] [address] [facility] [id number] [address] [place] [address] Jul, Bipolar 1 disorder, mixed F3 1.60 [facility] [address] [facility] [id number] [address] [place] [address] Jul, Bipolar 1 disorder, mixed F3 1.60 [facility] [address] [facility] [id number] [address] [place] [address] Jul, Bipolar 1 disorder, mixed F3 1.60 [facility] [address] [facility] [id number] [address] [place] [address] Jul, Bipolar 1 disorder, mixed F3 1.60 [facility] [address] [facility] [id number] [place], [place] [id number] Jul, Bipolar 1 disorder, mixed F3 1.60 [place] [address] 08 Jul, 2016 Cervicalgia M54.2 ; Tremor R 25.1 ; Hearing abnormally acute, unspecified laterality H93.239 ; Alopecia L65.9 ; Encounter for immunization Z23 and Family history of thyroid disease Z83.49 [place] [address] Jul, Bipolar 1 disorder, mixed F3 1.60 [place] [address] Jun, [place] [address] Jun, Hearing disorder, unspecifie d laterality H93.299 [place] [address] Jun, Bipolar 1 disorder, mixed F3 1.60 [place] [address] Jun, Bipolar 1 disorder, mixed F3 1.60 [place] [address] [place] [address] Jun, Allergic rhinitis J30.9 [place] [address] [place] [address] Jun, Bipolar 1 disorder, mixed F3 1.60 [place] [address] [address] Jun, Bipolar 1 disorder, mixed F3 1.60 [place] [address] Jun, Allergic rhinitis J30.9 [place] [address] [address] Jun, Allergic rhinitis J30.9 [facility] [address] [id number] [address] [place] [address] Jun, Bipolar 1 disorder, mixed F3 1.60 [facility] [address] [id number] [address] [place] [address] May, Bipolar 1 disorder, mixed F3 1.60 [facility] [address] [id number] [address] [place] [address] May, Bipolar 1 disorder, mixed F3 1.60 [facility] [address] [id number] [address] [place] [address] May, [facility] [address] [id number] [address] [place] [id number] May, Bipolar 1 disorder, mixed F3 1.60 [facility] [address] [id number] [address] [place] [id number] May, Bipolar 1 disorder, mixed F3 1.60 [facility] [address] [id number] [address] [place] [id number] May, [facility] [address] [id number] [address] [place] [id number] May, [facility] [address] [id number] [address] [place] [id number] May, [facility] [address] [id number] [address] [place] [phone] May, Abdominal pain, unspecified location R10.9 [facility] [address] [id number] [address] [place] [id number] May, [facility] [address] [facility] [id number] [address] [place], [place] [address] Apr, Hematuria R31.9 ; Ataxia R27 .0 and Hearing loss, unspecified laterality H91.90 [facility] [address] [facility] [id number] [address] [place] [id number] Apr, Bipolar 1 disorder, mixed F3 1.60 [facility] [address] [place] [id number] [address] [place] [id number] 11 Apr, 2016 Acute effusion of both middl e ears H65.193 [facility] [id number] [place] [id number] 10 Apr, 2016 Hematuria R31.9 [address] h[address] N12 [facility] [address] [id number] Apr, [place] [address] [id number] Mar, Bipolar 1 disorder, mixed F3 1.60 [facility] [address] [id number] Mar, [place] [address] [id number] Mar, Bipolar 1 disorder, mixed F3 1.60 [place] [address] [id number] Mar, Bipolar 1 disorder, mixed F3 1.60 [place] [address] [id number] Mar, Encounter for immunization Z 23 and Gastritis without bleeding, unspecified chronicity, unspecified gastritis type K29.70 [place] [address] [address] [place] [id number] [address] [place] [phone] Mar, Bipolar 1 disorder, mixed F3 1.60 and Grief F43.20 [place] [address] [id number] Mar, Gastritis without bleeding, unspecified chronicity, unspecified gastritis type K29.70 [facility] [address] [place] [id number] [address] [place] [id number] Mar, Bipolar 1 disorder, mixed F3 1.60 [place] [address] [address] Mar, Gastritis without bleeding, unspecified chronicity, unspecified gastritis type K29.70 [facility] [address] [facility] [id number] [address] [place] [address] Mar, [facility] [address] [facility] [id number] [address] [place] [address] 27 Feb, 2016 Bipolar 1 disorder, mixed F3 1.60 [facility] [address] [place] [id number] [place], [place] [address] Feb, Bipolar 1 disorder, mixed F3 1.60 and Grief F43.20 [facility] [address] [facility] [id number] [address] [place] [address] Feb, Gastritis without bleeding, unspecified chronicity, unspecified gastritis type K29.70 [facility] [address] [place] [id number] [address] [place] [address] 14 Feb, 2016 Bipolar 1 disorder, mixed F3 1.60 [facility] [address] [place] [id number] [address] [place] [address] Feb, Gastroesophageal reflux dise ase, esophagitis presence not specified K21.9 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 [address] [place] [id number] [address] [place] [address] Jan, Bipolar 1 disorder, mixed F3 1.60 [facility] [address] [place] [id number] [address] [place] [address] Jan, Bipolar 1 disorder, mixed F3 1.60 ; Grief F43.20 and Other mcc (current) drug therapy Z79.899 [facility] [address] [place] [id number] [address] [place] [address] Jan, Bipolar 1 disorder, mixed F3 1.60 [facility] [address] [place] [id number] [address] [place] [address] Dec, [facility] [address] [place] [id number] [place] [address] Dec, Bipolar 1 disorder, mixed F3 1.60 ; Vitamin D deficiency, unspecified E55.9 ; H/O allergic rhinitis Z87.09 ; Other chronic pain G89.29 and Dorsalgia, unspecified M54.9 [facility] [address] [place] [id number] [address] [place] [address] Dec, [facility] [address] [place] [id number] [place] [address] Dec, Bipolar 1 disorder, mixed F3 1.60 [facility] [address] [place] [id number] [address] [place] [address] Dec, Major depressive disorder, r ecurrent episode, moderate F33.1 [facility] [address] [place] [id number] [place] [address] Dec, Major depressive disorder, r ecurrent episode, moderate F33.1 [facility] [address] [place] [id number] [address] [place] [address] Nov, [facility] [address] [place] [id number] [address] [place] [address] Nov, Bipolar 1 disorder, mixed F3 1.60 [facility] [address] [facility] [id number] [address] [place] [address] Nov, Major depressive disorder, r ecurrent episode, moderate F33.1 [facility] [address] [facility] [id number] [address] [place] [address] Nov, Cervicalgia M54.2 ; Arthralg ia of hip, unspecified laterality M25.559 ; Allergic rhinitis J30.9 and Hormone replacement therapy Z79.890 [facility] [address] [facility] [id number] [address] [place] [address] 13 Nov, 2015 Other seasonal allergic rhin itis J30.2 [facility] [address] [facility] [id number] [address] [place] [address] October, Major depressive disorder, r ecurrent episode, moderate F33.1 [facility] [address] [facility] [id number] [address] [place] [address] October, Major depressive disorder, r ecurrent episode, moderate F33.1 and Arthralgia of hip, unspecified laterality M25.559 [facility] [address] [facility] [id number] [address] [place] [address] October, Grief F43.20 ; Hypertension I10 ; Hyperlipidemia, unspecified hyperlipidemia type E78.5 ; Other chronic pain G89.29 and Allergic rhinitis, unspecified allergic rhinitis type J30.9 [facility] [address] [facility] [id number] [address] [place] [address] October, Major depressive disorder, r ecurrent episode, moderate F33.1 [facility] [address] [facility] [id number] [address] [place] [address] Sep, Major depressive disorder, r ecurrent episode, moderate F33.1 [facility] [place] [address] [facility] [id number] [address] [place] [address] Sep, [facility] [address] [facility] [id number] [address] [place] [address] Sep, Major depressive disorder, r ecurrent episode, moderate F33.1 [facility] [address] [place] [id number] [place] [address] Sep, Grief F43.20 [facility] [address] [place] [id number] [place] [address] Aug, Major depressive disorder, r ecurrent episode, moderate F33.1 [facility] [address] [place] [id number] [place] [address] Aug, Bipolar 1 disorder, mixed F3 1.60 [facility] [place] [address] [place] [id number] [place] [address] Aug, Allergic rhinitis J30.9 ; Ce rvicalgia M54.2 and Low back pain M54.5 [facility] [address] [place] [id number] [place] [address] Aug, Major depressive disorder, r ecurrent episode, moderate F33.1 [facility] [address] [place] [id number] [address] [place] [address] Aug, Sinusitis J32.9 and Tobacco 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 [facility] [id number] [place] [address] Aug, [facility] [id number] [place] [address] Aug, Depressive disorder, not els ewhere classified F32.9 ; Hormone replacement therapy Z79.[address] scan, head R93.0 [facility] [place] [address] [facility] [id number] [address] [place] [address] Aug, Major depressive disorder, r ecurrent episode, moderate F33.1 [facility] [address] [place] [id number] [address] [place] [address] Jul, Major depressive disorder, r ecurrent episode, moderate F33.1 [facility] [address] [place] [id number] [place] [address] Jul, Abdominal pain R10.9 and Hyp ertension I10 [facility] [address] [id number] [address] [place] [address] Jul, [facility] [address] [facility] [id number] [address] [place] [address] Jul, Major depressive disorder, r ecurrent episode, moderate F33.1 [facility] [address] [facility] [id number] [address] [place] [address] Jul, [facility] [address] [id number] [address] [place] [address] Jul, [facility] [address] [id number] [address] [place] [address] Jun, [facility] [address] [place] [id number] [address] [place] [address] Jun, Depressive disorder, not els ewhere classified F32.9 [facility] [address] [facility] [id number] [address] [place] [address] Jun, [facility] [address] [facility] [id number] [address] [place] [address] Jun, [facility] [address] [facility] [id number] [address] [place] [address] Jun, Arthralgia of hip, unspecifi ed laterality M25.559 ; Bruising, spontaneous R23.[address] [facility] [address] [facility] [id number] [address] [place] [address] Jun, [facility] [address] [facility] [id number] [address] [place] [address] Jun, [facility] [address] [facility] [id number] [address] [place] [address] May, [facility] [address] [facility] [id number] [address] [place] [address] May, Myalgia M79.1 and Screening, lipid Z13.220 [facility] [address] [id number] [address] [place] [address] Apr, Status post cervical spinal fusion Z98.1 ; Fibromyalgia M79.7 and Unsteady gait R26.81 [facility] [address] [id number] [address] [place] [address] Nov, [facility] [address] [id number] [address] [place] [address] Nov, [facility] [address] [id number] [address] [place] [address] October, [facility] [address] [id number] [address] [place] [address] October, [facility] [address] [id number] [address] [place] [address] October, [facility] [address] [id number] [address] [place] [address] October, [facility] [address] [id number] [address] [place] [address] October, [facility] [address] [facility] [id number] [address] [place] [address] October, Dysuria 788.1 ; Nausea 787.0 2 and Urinary tract infection 599.0 [facility] [address] [id number] [address] [place] [address] Sep, [facility] [address] [id number] [address] [place] [address] Sep, [facility] [address] [id number] [address] [place] [address] Aug, [facility] [address] [id number] [address] [place] [address] Aug, [facility] [address] [id number] [address] [place] [address] Aug, [facility] [address] [id number] [address] [place] [address], [place] [address] 24 Aug, 2014 [facility] [address] [id number] [address] [place] [address], [place] [address] 23 Aug, 2014 [facility] [address] [id number] [address] [place] [address], [place] [address] 19 Aug, 2014 [facility] [address] [id number] [address] [place] [address], [place] [address] 19 Aug, 2014 [facility] [address] [id number] [address] [place] [address], [place] [address] 19 Aug, 2014 [facility] [address] [id number] [address] [place] [address], [place] [address] 19 Aug, 2014 [facility] [address] [id number] [address] [place] [address], [place] [address] 18 Aug, 2014 [facility] [address] [id number] [address] [place] [address], [place] [address] 18 Aug, 2014 [facility] [address] [id number] [address] [place] [address], [place] [address] 13 Aug, 2014 [facility] [address] [id number] [address] [place] [address], [place] [address] 13 Aug, 2014 [facility] [address] [id number] [address] [place] [address], [place] [address] 11 Aug, 2014 [facility] [address] [id number] [address] [place] [address], [place] [address] 11 Aug, 2014 [facility] [address] [id number] [address] [place] [address], [place] [address] 06 Aug, 2014 [facility] [address] [id number] [address] [place] [address], [place] [address] 06 Aug, 2014 [facility] [address] [id number] [address] [place] [address], [place] [address] 05 Aug, 2014 [facility] [address] [id number] [address] [place] [address], [place] [address] Aug, [facility] [address] [id number] [address] [place] [address], [place] [address] Aug, [facility] [address] [id number] [address] [place] [address], [place] [address] Aug, [facility] [address] [id number] [address] [place] [address], [place] [address] Aug, [facility] [address] [id number] [address] [place] [address], [place] [address] Jul, 2014 [facility] [address] [id number] [address] [place] [address], [place] [address] Jul, 2014 [facility] [address] [id number] [address] [place] [address], [place] [address] Jul, 2014 [facility] [address] [id number] [address] [place] [address], [place] [address] Jul, 2014 [facility] [address] [id number] [address] [place] [address], [place] [address] Jul, 2014 [facility] [address] [id number] [address] [place] [address], [place] [address] Jul, 2014 [facility] [address] [id number] [address] [place] [address], [place] [address] Jul, 2014 [facility] [address] [id number] [address] [place] [address], [place] [address] Jul, 2014 [facility] [address] [id number] [address] [place] [address] Jul, 2014 [facility] [address] [id number] [address] [place] [address], [place] [address] Jul, 2014 [facility] [address] [id number] [address] [place] [address] Jul, 2014 [facility] [address] [id number] [address] [place] [address], [place] [address] Jul, [facility] [address] [id number] [address] [place] [address], [place] [address] Jul, [facility] [address] [id number] [address] [place] [address], [place] [address] Jul, [facility] [address] [id number] [address] [place] [address], [place] [address] Jun, [facility] [address] [id number] [address] [place] [address], [place] [address] Jun, [facility] [address] [id number] [address] [place] [address], [place] [address] Jun, [facility] [address] [id number] [address] [place] [address], [place] [address] Jun, [facility] [address] [id number] [address] [place] [address], [place] [address] Jun, [facility] [address] [id number] [address] [place] [address], [place] [address] Jun, [facility] [address] [id number] [address] [place] [address], [place] [address] May, [facility] [address] [id number] [address] [place] [address], [place] [address] May, [facility] [address] [id number] [address] [place] [address], [place] [address] May, [facility] [address] [id number] [address] [place] [address], [place] [address] May, [facility] [address] [id number] [address] [place] [address], [place] [address] May, [facility] [address] [id number] [address] [place] [address], [place] [address] May, [facility] [address] [id number] [address] [place] [address], [place] [address] Apr, [facility] [address] [id number] [address] [place] [address], [place] [address] Apr, [facility] [address] [id number] [address] [place] [address], [place] [address] Apr, [facility] [address] [id number] [address] [place] [address], [place] [address] Apr, [facility] [address] [id number] [address] [place] [address], [place] [address] Apr, [facility] [address] [id number] [address] [place] [address], [place] [address] Apr, [facility] [address] [id number] [address] [place] [address], [place] [address] Mar, [facility] [address] [id number] [address] [place] [address], [place] [address] Mar, [facility] [address] [id number] [address] [place] [address], [place] [address] Mar, [facility] [address] [id number] [address] [place] [address], [place] [address] Mar, [facility] [address] [id number] [address] [place] [address], [place] [address] Mar, [facility] [address] [id number] [address] [place] [address], [place] [address] Mar, [facility] [address] [id number] [address] [place] [address], [place] [address] Mar, [facility] [address] [id number] [address] [place] [address] Mar, [facility] [address] [id number] [address] [place] [address], [place] [address] Mar, [facility] [address] [id number] [address] [place] [address], [place] [address] Mar, [facility] [address] [id number] [address] [place] [address] Mar, [facility] [address] [id number] [address] [place] [address], [place] [address] Mar, [facility] [address] [id number] [address] [place] [address], [place] [address] 30 Feb, 2014 [facility] [address] [id number] [address] [place] [address], [place] [address] Feb, [facility] [address] [id number] [address] [place] [address], [place] [address] Feb, [facility] [address] [id number] [address] [place] [address], [place] [address] Feb, [facility] [address] [id number] [address] [place] [address], [place] [address] Feb, [facility] [address] [id number] [address] [place] [address], [place] [address] Feb, [facility] [address] [id number] [address] [place] [address], [place] [address] Feb, [facility] [address] [id number] [address] [place] [address], [place] [address] Jan, [facility] [address] [id number] [address] [place] [address], [place] [address] Jan, [facility] [address] [id number] [address] [place] [address], [place] [address] Jan, [facility] [address] [id number] [address] [place] [address], [place] [address] Dec, [facility] [address] [id number] [address] [place] [address], [place] [address] Dec, [facility] [address] [id number] [address] [place] [address], [place] [address] Dec, [facility] [address] [id number] [address] [place] [address], [place] [address] Dec, [facility] [address] [id number] [address] [place] [address], [place] [address] Sep, [facility] [address] [id number] [address] [place] [address], [place] [address] Sep, [facility] [address] [id number] [address] [place] [address], [place] [address] Sep, [facility] [address] [id number] [address] [place] [address], [place] [address] Sep, [facility] [address] [id number] [address] [place] [address], [place] [address] Sep, [facility] [address] [id number] [address] [place] [address], [place] [address] Sep, [facility] [address] [id number] [address] [place] [address], [place] [address] Sep, [facility] [address] [id number] [address] [place] [address], [place] [address] Sep, [facility] [address] [id number] [address] [place] [address], [place] [address] Aug, [facility] [address] [id number] [address] [place] [address], [place] [address] Aug, [facility] [address] [id number] [address] [place] [address], [place] [address] May, [facility] [address] [id number] [address] [place] [address], [place] [address] May, [facility] [address] [id number] [address] [place] [address], [place] [address] Apr, [facility] [address] [id number] [address] [place] [address], [place] [address] Apr, [facility] [address] [id number] [address] [place] [address], [place] [address] Apr, [facility] [address] [id number] [address] [place] [address], [place] [address] Apr, [facility] [address] [id number] [address] [place] [address], [place] [address] Apr, [facility] [address] [id number] [address] [place] [address], [place] [address] Apr, [facility] [address] [id number] [address] [place] [address], [place] [address] 18 May, 2012 [facility] [address] [id number] [address] [place] [address], [place] [address] 18 May, 2012 [facility] [address] [id number] [address] [place] [address], [place] [address] 15 May, 2012 [facility] [address] [id number] [address] [place] [address], [place] [address] 15 May, 2012 [facility] [address] [id number] [address] [place] [address], [place] [address] 13 May, 2012 [facility] [address] [id number] [address] [place] [address], [place] [address] 13 May, 2012 [facility] [address] [id number] [address] [place] [address], [place] [address] 13 Apr, 2012 [facility] [address] [id number] [address] [place] [address], [place] [address] 13 Apr, 2012 [facility] [address] [id number] [address] [place] [address], [place] [address] 08 Apr, 2012 [facility] [address] [id number] [address] [place] [address], [place] [address] Apr, [facility] [address] [id number] [address] [place] [address], [place] [address] Apr, [facility] [address] [id number] [address] [place] [address], [place] [address] Apr, [facility] [address] [id number] [address] [place] [address], [place] [address] Apr, [facility] [address] [id number] [address] [place] [address], [place] [address] Apr, [facility] [address] [id number] [address] [place] [address], [place] [address] Apr, [facility] [address] [id number] [address] [place] [address], [place] [address] Apr, [facility] [address] [id number] [address] [place] [address], [place] [address] Mar, [facility] [address] [id number] [address] [place] [address], [place] [address] Mar, [facility] [address] [id number] [address] [place] [address], [place] [address] Mar, [facility] [address] [id number] [address] [place] [address], [place] [address] Mar, [facility] [address] [id number] [address] [place] [address], [place] [address] Mar, [facility] [address] [id number] [address] [place] [id number] Mar, [facility] [address] [id number] [address] [place] [address], [place] [address] Mar, [facility] [address] [id number] [address] [place] [id number] Mar, [facility] [address] [id number] [address] [place] [id number] Mar, [facility] [address] [id number] [address] [place] [id number] Feb, [facility] [address] [id number] [address] [place] [phone] 16 Feb, 2012 [facility] [address] [id number] [address] [place] [id number] 11 Feb, 2012 [facility] [address] [id number] [address] [place] [id number] Jan, [facility] [address] [id number] [address] [place] [phone] Jan, [facility] [address] [id number] [address] [place] [address], [place] [address] Jan, [facility] [address] [id number] [address] [place] [address], [place] [address] Jan, [facility] [address] [id number] [address] [place] [address], [place] [address] Jan, [facility] [address] [id number] [address] [place] [address], [place] [address] Jan, [facility] [address] [id number] [address] [place] [address], [place] [address] 16 Jan, 2012 [facility] [address] [id number] [address] [place] [address], [place] [address] Jan, [facility] [address] [id number] [address] [place] [address], [place] [address] Jan, [facility] [address] [id number] [address] [place] [address], [place] [address] Jan, [facility] [address] [id number] [address] [place] [address], [place] [address] Dec, [facility] [address] [id number] [address] [place] [address], [place] [address] Dec, [facility] [address] [id number] [address] [place] [address], [place] [address] Dec, [facility] [address] [id number] [address] [place] [address], [place] [address] Dec, [facility] [address] [id number] [address] [place] [address], [place] [address] Nov, [facility] [address] [id number] [address] [place] [address], [place] [address] Nov, [facility] [address] [id number] [address] [place] [address], [place] [address] Nov, [facility] [address] [id number] [address] [place] [phone] October, [facility] [address] [id number] [address] [place] [phone] October, [facility] [address] [id number] [address] [place] [phone] October, [facility] [address] [id number] [address] [place] [id number] October, [facility] [address] [id number] [address] [place] [id number] October, [facility] [address] [id number] [address] [place] [id number] October, [facility] [address] [id number] [address] [place] [id number] Aug, [facility] [address] [id number] [address] [place] [id number] Mar, [facility] [address] [id number] [address] [place] [phone] Nov, [facility] [address] [id number] [address] [place] [id number] May, [facility] [address] [id number] [address] [place] [id number] May, [facility] [address] [id number] [address] [place] [id number] Apr, [facility] [address] [id number] [address] [place] [id number] Mar, [facility] [address] [id number] [address] [place] [id number] Mar, IMMUNIZATIONS No Known Immunizations SOCIAL HISTORY Never Assessed REASON FOR VISIT BH f/u PLAN OF CARE Activity Details Follow Up 1 Week Reason:BH F/U VITAL SIGNS MEDICATIONS Unknown Medications RESULTS No Results PROCEDURES Procedure Date Ordered Result Body Site [facility] VISIT MENTAL HEALTH ESTAB PT September 05, 2017 Psychotherapy, patient &/family, 45 minutes, established pat ient September 05, 2017 INSTRUCTIONS MEDICATIONS ADMINISTERED No Known Medications [...]
--- OUTSIDE RECORDS SUMMARY | 2019-06-19 05:40 | XMS REPORT ---
Author Author Sydnie HANCOCK [facility] Address [address] [place] [address] Care Team Providers Care Mark[employer] Developer Name Role Phone NAHOMY HANCOCK Unavailable PROBLEMS Type Condition ICD9-CM Code BAO28-ZL Code Onset Dates Condition S tatus SNOMED Code Problem Hormone replacement therapy Z79.890 Ac tive 964537799 Problem Abnormal CT scan, head R93.0 Active 526518329 Problem Sensorineural hearing loss (SNHL) of both ears H90 .3 Active 645869987 Problem History of colon polyps Z86.010 Active 715916631 Problem Bruising, spontaneous R23.3 Active 281672381 Problem Generalized anxiety disorder F41.1 A ctive 05902042 Problem Arthralgia of hip, unspecified laterality M25.559 Active 12126922 Problem Hematuria, unspecified type R31.9 Ac tive 95375212 Problem Imbalance R26.89 Active 421380577 Problem Hammer toe of right foot M20.41 Activ e 677989719 Problem Plantar wart of right foot B07.0 Act mitchell [id number] Problem Sciatica of left side M54.32 Active 60346767 Problem Hyperlipidemia, unspecified hyperlipidemia type E7 8.5 Active 96804972 Problem Hypertension I10 Active 2065570 3 Problem Night sweats R61 Active 6812694 0 Problem Fibromyalgia M79.7 Active 2630193 7 Problem Major depressive disorder, recurrent episode, moderate F33.1 Active 958719954 Problem Acute left-sided low back pain with left-sided sciatica M54.42 Active 009660569 Problem Bladder spasm N32.89 Active 101949 006 Problem Gastritis without bleeding, unspecified chronicity, unspecified gastritis type K29.70 Active 139191604 Problem Bipolar 1 disorder, mixed F31.60 Acti ve 54275934 Problem Grief F43.20 Active 83021392 Problem Other chronic pain G89.29 Active 8 1690321 Problem Allergic rhinitis J30.9 Active 61 586694 Problem Hot flashes due to menopause N95.1 A ctive 874629740 Problem Ataxia R27.0 Active 91516402 Problem Hearing loss, unspecified laterality H91.90 Active 64197738 ALLERGIES No Information ENCOUNTERS Encounter Location Date Diagnosis [facility] [address] [facility] [id number] [address] [place] [phone] Mar, [facility] [address] [facility] [id number] [address] [place] [phone] Jan, [facility] [address] [facility] [id number] [address] [place] [phone] Jan, [facility] [address] [facility] [id number] [address] [place] [phone] Jan, [facility] [address] [place] [id number] [address] [place] [address] Dec, Bipolar 1 disorder, mixed F3 1.60 ; Generalized anxiety disorder F41.1 and Other group home (current) drug therapy Z79.899 [place] [address] [facility] [id number] [address] [place] [phone] Dec, Other group home (current) dr ug therapy Z79.899 [place] [address] [facility] [id number] [address] [place] [phone] Dec, Bipolar 1 disorder, mixed F3 1.60 [facility] [address] [facility] [id number] [address] [place] [phone] Dec, Bipolar 1 disorder, mixed F3 1.60 [place] [address] [facility] [id number] [address] [place] [phone] Nov, Bipolar 1 disorder, mixed F3 1.60 [place] [address] [facility] [id number] [address] [place] [address] Nov, Bipolar 1 disorder, mixed F3 1.60 [facility] [address] [facility] [id number] [address] [place] [phone] Nov, Bipolar 1 disorder, mixed F3 1.60 [facility] [address] [facility] [id number] [address] [place] [phone] Nov, Allergic rhinitis J30.9 [facility] [address] [facility] [id number] [address] [place] [phone] Nov, Allergic rhinitis J30.9 [facility] [address] [place] [id number] [address] [place] [phone] Nov, [facility] [address] [facility] [id number] [address] [place] [address] Nov, Bipolar 1 disorder, mixed F3 1.60 [place] [address] [address] Nov, Fibromyalgia M79.7 and Aller gic rhinitis J30.9 [place] [address] [place] [id number] [place] [address] October, Bipolar 1 disorder, mixed F3 1.60 [facility] [address] [place] [id number] [address] [place] [address] October, Acute nasopharyngitis J00 [facility] [address] [place] [id number] [place] [phone] October, Bitten or stung by nonvenomo us insect and other nonvenomous arthropods, initial encounter W57.XXXA and Insect bite (nonvenomous) of abdominal wall, initial encounter S30.861A [facility] [address] [place] [id number] [address] [place] [address] October, Insect bite (nonvenomous) of abdominal wall, initial encounter S30.861A ; Bitten or stung by nonvenomous insect and other nonvenomous arthropods, initial encounter W57.XXXA ; Allergic rhinitis J30.9 and Low back pain M54.5 [facility] [address] [facility] [id number] [address] [place] [phone] October, Bipolar 1 disorder, mixed F3 1.60 [facility] [address] [id number] [address] [place] [phone] October, [facility] [address] [id number] [address] [place] [phone] October, [facility] [address] [id number] [address] [place] [phone] October, Bipolar 1 disorder, mixed F3 1.60 [facility] [address] [id number] [address] [place] [phone] Sep, Bipolar 1 disorder, mixed F3 1.60 [facility] [address] [id number] [address] [place] [phone] Sep, Other chronic pain G89.29 [facility] [address] [id number] [address] [place] [phone] Sep, [facility] [address] [facility] [id number] [address] [place] [phone] Sep, Bipolar 1 disorder, mixed F3 1.60 [facility] [address] [id number] [address] [place] [phone] Sep, Allergic rhinitis J30.9 and Sciatica of left side M54.32 [facility] [address] [id number] [address] [place] [phone] Sep, Bipolar 1 disorder, mixed F3 1.60 [facility] [address] [id number] [address] [place] [phone] Sep, Bipolar 1 disorder, mixed F3 1.60 and Generalized anxiety disorder F41.1 [facility] [address] [id number] [address] [place] [phone] Aug, [facility] [address] [facility] [id number] [address] [place] [phone] Aug, Bipolar 1 disorder, mixed F3 1.60 [facility] [address] [facility] [id number] [address] [place] [phone] Aug, Bipolar 1 disorder, mixed F3 1.60 [facility] [address] [facility] [id number] [address] [place] [phone] Aug, [facility] [address] [facility] [id number] [address] [place] [phone] Aug, Generalized anxiety disorder F41.1 [facility] [address] [facility] [id number] [address] [place] [phone] Aug, Bipolar 1 disorder, mixed F3 1.60 [facility] [address] [facility] [id number] [address] [place] [phone] Aug, Plantar wart of right foot B 07.0 [facility] [address] [facility] [id number] [address] [place] [phone] Aug, Bipolar 1 disorder, mixed F3 1.60 [facility] [address] [facility] [id number] [address] [place] [phone] Jul, Bipolar 1 disorder, mixed F3 1.60 [facility] [address] [facility] [id number] [address] [place] [phone] Jul, [facility] [address] [facility] [id number] [address] [place] [phone] Jul, Bipolar 1 disorder, mixed F3 1.60 [facility] [address] [facility] [id number] [address] [place] [phone] Jul, Generalized anxiety disorder F41.1 [facility] [address] [facility] [id number] [address] [place] [phone] Jul, Bipolar 1 disorder, mixed F3 1.60 [facility] [address] [facility] [id number] [address] [place] [phone] Jul, Acute left-sided low back pa in with left-sided sciatica M54.42 [facility] [address] [facility] [id number] [address] [place] [phone] 05 Jul, 2017 Coccydynia M53.3 [facility] [address] [facility] [id number] [address] [place] [phone] Jun, Bipolar 1 disorder, mixed F3 1.60 [facility] [address] [facility] [id number] [address] [place] [phone] Jun, Acute nasopharyngitis J00 [place] [address] [place] [id number] [address] [place] [phone] Jun, Bipolar 1 disorder, mixed F3 1.60 [place] [address] [place] [id number] [address] [place] [phone] Jun, Fibromyalgia M79.7 [place] [address] [place] [id number] [place] [phone] Jun, Bipolar 1 disorder, mixed F3 1.60 [place] [address] [place] [id number] [place] [address] Jun, Fibromyalgia M79.7 and Bipol ar 1 disorder, mixed F31.60 [place] [address] [address] May, Bipolar 1 disorder, mixed F3 1.60 ; Generalized anxiety disorder F41.1 and 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 [address] [place] [id number] [address] [place] [phone] 10 May, 2017 Bladder spasm N32.89 and Acu te cystitis without hematuria N30.00 [place] [address] [place] [id number] [address] [place] [phone] 07 May, 2017 Bipolar 1 disorder, mixed F3 1.60 [place] [address] [place] [id number] [place] [address] Apr, [facility] [address] [place] [address] Apr, Major depressive disorder, r ecurrent episode, moderate F33.1 and Encounter for immunization Z23 [facility] [address] [address] Apr, Bipolar 1 disorder, mixed F3 1.60 [facility] [address] [address] Apr, Bipolar 1 disorder, mixed F3 1.60 [place] [address] [address] Apr, Bipolar 1 disorder, mixed F3 1.60 [place] [address] [address] Apr, Yeast vaginitis B37.3 [facility] [address] [address] Apr, Bipolar 1 disorder, mixed F3 1.60 [facility] [address] [address] Apr, Encounter for immunization Z 23 and Cellulitis L03.90 [facility] [address] [address] Apr, Bipolar 1 disorder, mixed F3 1.60 [facility] [address] [place] [id number] [address] [place] [phone] Mar, Bipolar 1 disorder, mixed F3 1.60 [place] [address] [address] Mar, Bipolar 1 disorder, mixed F3 1.60 [facility] [address] [address] Mar, Imbalance R26.89 and Encount er for immunization Z23 [facility] [address] [place] [address] Mar, Generalized anxiety disorder F41.1 [place] [address] [place] [id number] [place] [address] Mar, Bipolar 1 disorder, mixed F3 1.60 [place] [address] [place] [id number] [place] [address] Mar, Generalized anxiety disorder F41.1 [place] [address] [address] Mar, Bipolar 1 disorder, mixed F3 1.60 [place] [address] [place] [address] Mar, Bipolar 1 disorder, mixed F3 1.60 [place] [address] [address] Feb, Bipolar 1 disorder, mixed F3 1.60 [place] [address] [address] Feb, Bipolar 1 disorder, mixed F3 1.60 and Generalized anxiety disorder F41.1 [place] [address] [place] 8[address]22[address] Feb, Gastritis without bleeding, unspecified chronicity, unspecified gastritis type K29.70 ; Hammer toe of right foot M20.41 and Other viral warts B07.8 [place] [address] [address] Feb, Bipolar 1 disorder, mixed F3 1.60 [place] [address] [place] [id number] [address] [place] [phone] Feb, Bipolar 1 disorder, mixed F3 1.60 [place] [address] [place] [phone] 05 Feb, 2017 Bipolar 1 disorder, mixed F3 1.60 [place] [address] [address] Jan, Encounter for screening mamm ogram for breast cancer Z12.31 ; Other viral warts B07.8 and Allergic rhinitis J30.9 [facility] [address] [facility] [id number] [address] [place] [phone] Jan, Bipolar 1 disorder, mixed F3 1.60 [facility] [address] [facility] [id number] [address] [place] [address] Jan, Bipolar 1 disorder, mixed F3 1.60 [facility] [address] [facility] [id number] [address] [place] [phone] Jan, [facility] [address] [facility] [id number] [address] [place] [address] Jan, Bipolar 1 disorder, mixed F3 1.60 [facility] [address] [facility] [id number] [address] [place] [address] Jan, Bipolar 1 disorder, mixed F3 1.60 [place] [address] [facility] [id number] [address] [place] [phone] Jan, Allergic rhinitis J30.9 ; He maturia R31.9 and Colon cancer screening Z12.11 [facility] [address] [facility] [id number] [address] [place] [address] Dec, Bipolar 1 disorder, mixed F3 1.60 [facility] [address] [facility] [id number] [address] [place] [address] Dec, Bipolar 1 disorder, mixed F3 1.60 ; Generalized anxiety disorder F41.1 and Other group home (current) drug therapy Z79.899 [facility] [address] [facility] [id number] [address] [place] [address] Dec, Bipolar 1 disorder, mixed F3 1.60 [facility] [address] [facility] [id number] [address] [place] [address] Dec, Bipolar 1 disorder, mixed F3 1.60 [facility] [address] [facility] [id number] [address] [place] [phone] Dec, Bipolar 1 disorder, mixed F3 1.60 [facility] [address] [facility] [id number] [address] [place] [phone] Dec, Low back pain M54.5 and Recu rrent urinary tract infection N39.0 [facility] [address] [facility] [id number] [address] [place] [phone] Nov, Bipolar 1 disorder, mixed F3 1.60 [facility] [address] [facility] [id number] [address] [place] [address] Nov, Bipolar 1 disorder, mixed F3 1.60 [facility] [address] [facility] [id number] [address] [place] [address] Nov, Bipolar 1 disorder, mixed F3 1.60 [facility] [address] [facility] [id number] [address] [place] [phone] Nov, Bipolar 1 disorder, mixed F3 1.60 [place] [address] [facility] [id number] [address] [place] [phone] Nov, [facility] [address] [facility] [id number] [address] [place] [phone] Nov, Anesthesia of skin R20.0 ; F requent UTI N39.0 ; Tobacco abuse Z72.0 and Colon cancer screening Z12.11 [facility] [address] [facility] [id number] [address] [place] [address] Nov, Bipolar 1 disorder, mixed F3 1.60 [facility] [address] [facility] [id number] [address] [place] [address] October, Bipolar 1 disorder, mixed F3 1.60 [facility] [address] [facility] [id number] [address] [place] [address] October, Bipolar 1 disorder, mixed F3 1.60 [facility] [address] [facility] [id number] [address] [place] [phone] October, Bipolar 1 disorder, mixed F3 1.60 [facility] [address] [facility] [id number] [address] [place] [address] October, Bipolar 1 disorder, mixed F3 1.60 [place] [address] [address] October, Bipolar 1 disorder, mixed F3 1.60 [facility] [address] [place] [id number] [address] [place] [address] October, Cervicalgia M54.2 and Bipola r 1 disorder, mixed F31.60 [place] [address] [address] October, Hypertension I10 ; Hyperlipi demia, unspecified hyperlipidemia type E78.5 and Family history of thyroid disease Z83.49 [place] [address] [place] [id number] [place] [address] October, [place] [address] [address] October, Hypertension I10 ; Hyperlipi demia, unspecified hyperlipidemia type E78.5 and Family history of thyroid problem Z83.49 [place] [address] [address] October, Bipolar 1 disorder, mixed F3 1.60 [place] [address] [address] Sep, Bipolar 1 disorder, mixed F3 1.60 [place] [address] [place] [id number] [address] [place] [address] Sep, Bipolar 1 disorder, mixed F3 1.60 [place] [address] [place] [id number] [address] [place] [phone] Sep, Bipolar 1 disorder, mixed F3 1.60 [place] [address] [place] [id number] [address] [place] [address] Sep, History of colon polyps Z86. 010 and Hematochezia K92.1 [place] [address] [place] [id number] [address] [place] [address] Sep, Major depressive disorder, r ecurrent episode, moderate F33.1 [facility] [address] [facility] [id number] [address] [place], [place] [address] Sep, Bipolar 1 disorder, mixed F3 1.60 [facility] [address] [facility] [id number] [address] [place] [address] Aug, Hot flashes due to menopause N95.1 [facility] [address] [id number] [address] [place] [address] Aug, Bipolar 1 disorder, mixed F3 1.60 [facility] [address] [facility] [id number] [address] [place] [address] Aug, [facility] [address] [facility] [id number] [address] [place], [place] [address] Aug, Bipolar 1 disorder, mixed F3 1.60 [facility] [address] [facility] [id number] [address] [place] [id number] Aug, Bipolar 1 disorder, mixed F3 1.60 [facility] [address] [facility] [id number] [address] [place] [phone] Aug, Hot flashes due to menopause N95.1 ; Cervicalgia M54.2 and Ataxia R27.0 [facility] [address] [facility] [id number] [address] [place] [phone] Jul, Bipolar 1 disorder, mixed F3 1.60 [facility] [address] [facility] [id number] [address] [place] [phone] Jul, Bipolar 1 disorder, mixed F3 1.60 [facility] [address] [facility] [id number] [address] [place] [phone] Jul, Bipolar 1 disorder, mixed F3 1.60 [facility] [address] [facility] [id number] [address] [place] [phone] Jul, Bipolar 1 disorder, mixed F3 1.60 [facility] [address] [facility] [address] [place], [place] [id number] 10 Jul, 2016 Bipolar 1 disorder, mixed F3 1.60 [place] [address] 08 Jul, 2016 Cervicalgia M54.2 ; Tremor R 25.1 ; Hearing abnormally acute, unspecified laterality H93.239 ; Alopecia L65.9 ; Encounter for immunization Z23 and Family history of thyroid disease Z83.49 [place] [address] Jul, Bipolar 1 disorder, mixed F3 1.60 [place] [address] Jun, [place] [address] Jun, Hearing disorder, unspecifie d laterality H93.299 [place] [address] Jun, Bipolar 1 disorder, mixed F3 1.60 [place] [address] Jun, Bipolar 1 disorder, mixed F3 1.60 [place] [address] [place] [id number] Jun, Allergic rhinitis J30.9 [place] [address] Jun, Bipolar 1 disorder, mixed F3 1.60 [place] [address] [place] [id number] Jun, Bipolar 1 disorder, mixed F3 1.60 [place] [address] [place] [id number] Jun, Allergic rhinitis J30.9 [place] [address] [phone] Jun, Allergic rhinitis J30.9 [facility] [address] [id number] [address] [place] [phone] Jun, Bipolar 1 disorder, mixed F3 1.60 [facility] [address] [id number] [address] [place] [phone] May, Bipolar 1 disorder, mixed F3 1.60 [facility] [address] [id number] [address] [place] [phone] May, Bipolar 1 disorder, mixed F3 1.60 [facility] [address] [id number] [address] [place] [phone] May, [facility] [address] [id number] [address] [place] [phone] May, Bipolar 1 disorder, mixed F3 1.60 [facility] [address] [facility] [id number] [address] [place] [phone] May, Bipolar 1 disorder, mixed F3 1.60 [facility] [address] [id number] [address] [place] [phone] May, [facility] [address] [id number] [address] [place] [phone] May, [facility] [address] [facility] [id number] [address] [place] [phone] May, [facility] [address] [facility] [id number] [address] [place] [phone] May, Abdominal pain, unspecified location R10.9 [facility] [address] [id number] [address] [place] [phone] May, [facility] [address] [facility] [id number] [address] [place], [place] [address] Apr, Hematuria R31.9 ; Ataxia R27 .0 and Hearing loss, unspecified laterality H91.90 [facility] [address] [facility] [id number] [address] [place] [phone] Apr, Bipolar 1 disorder, mixed F3 1.60 [facility] [address] [place] [id number] [address] [place] [phone] 11 Apr, 2016 Acute effusion of both middl e ears H65.193 [facility] [id number] [place] [phone] 10 Apr, 2016 Hematuria R31.9 and Pyelonep hritis N12 [facility] [address] [address] Apr, [facility] [address] [address] Mar, Bipolar 1 disorder, mixed F3 1.60 [facility] [address] [address] Mar, [facility] [address] [address] Mar, Bipolar 1 disorder, mixed F3 1.60 [place] [address] [address] Mar, Bipolar 1 disorder, mixed F3 1.60 [facility] [address] [address] Mar, Encounter for immunization Z 23 and Gastritis without bleeding, unspecified chronicity, unspecified gastritis type K29.70 [place] [address] [place] [id number] [address] [place] [phone] Mar, Bipolar 1 disorder, mixed F3 1.60 and Grief F43.20 [place] [address] [place] [id number] [address] [place] [phone] Mar, Gastritis without bleeding, unspecified chronicity, unspecified gastritis type K29.70 [facility] [address] [place] [id number] [address] [place] [phone] Mar, Bipolar 1 disorder, mixed F3 1.60 [place] [address] [address] Mar, Gastritis without bleeding, unspecified chronicity, unspecified gastritis type K29.70 [facility] [address] [facility] [id number] [address] [place] [phone] Mar, [facility] [address] [facility] [id number] [address] [place] [phone] Feb, Bipolar 1 disorder, mixed F3 1.60 [facility] [address] [place] [id number] [address] [place] [phone] Feb, Bipolar 1 disorder, mixed F3 1.60 and Grief F43.20 [place] [address] [facility] [id number] [address] [place] [phone] Feb, Gastritis without bleeding, unspecified chronicity, unspecified gastritis type K29.70 [place] [address] [facility] [id number] [address] [place] [phone] 14 Feb, 2016 Bipolar 1 disorder, mixed F3 1.60 [facility] [address] [facility] [id number] [address] [place] [phone] Feb, Gastroesophageal reflux dise ase, esophagitis presence not specified K21.9 [facility] [address] [place] [id number] [address] [place] [phone] Jan, Bipolar 1 disorder, mixed F3 1.60 [place] [address] [place] [id number] [address] [place] [phone] Jan, Bipolar 1 disorder, mixed F3 1.60 and Unsteady gait R26.81 [place] [address] [facility] [id number] [address] [place] [phone] Jan, Bipolar 1 disorder, mixed F3 1.60 [place] [address] [place] [id number] [address] [place] [phone] Jan, Bipolar 1 disorder, mixed F3 1.60 and 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 [place] [address] [place] [id number] [address] [place] [phone] Jan, Bipolar 1 disorder, mixed F3 1.60 [facility] [address] [facility] [id number] [address] [place] [phone] Jan, Bipolar 1 disorder, mixed F3 1.60 [facility] [address] [facility] [id number] [address] [place] [phone] Jan, Bipolar 1 disorder, mixed F3 1.60 ; Grief F43.20 and Other group home (current) drug therapy Z79.899 [facility] [address] [facility] [id number] [address] [place] [phone] Jan, Bipolar 1 disorder, mixed F3 1.60 [facility] [address] [place] [id number] [address] [place] [phone] Dec, [facility] [address] [place] [id number] [address] [place] [phone] Dec, Bipolar 1 disorder, mixed F3 1.60 ; Vitamin D deficiency, unspecified E55.9 ; H/O allergic rhinitis Z87.09 ; Other chronic pain G89.29 and Dorsalgia, unspecified M54.9 [facility] [address] [facility] [id number] [address] [place] [phone] Dec, [facility] [address] [place] [id number] [address] [place] [phone] Dec, Bipolar 1 disorder, mixed F3 1.60 [facility] [address] [place] [id number] [address] [place] [phone] Dec, Major depressive disorder, r ecurrent episode, moderate F33.1 [facility] [address] [facility] [id number] [address] [place] [phone] Dec, Major depressive disorder, r ecurrent episode, moderate F33.1 [facility] [address] [facility] [id number] [address] [place] [phone] Nov, [facility] [address] [facility] [id number] [address] [place] [phone] Nov, Bipolar 1 disorder, mixed F3 1.60 [place] [address] [facility] [id number] [address] [place] [phone] Nov, Major depressive disorder, r ecurrent episode, moderate F33.1 [place] [id number] [facility] [id number] [address] [place] [phone] Nov, Cervicalgia M54.2 ; Arthralg ia of hip, unspecified laterality M25.559 ; Allergic rhinitis J30.9 and Hormone replacement therapy Z79.890 [facility] [address] [facility] [id number] [address] [place] [phone] 13 Nov, 2015 Other seasonal allergic rhin itis J30.2 [place] [address] [facility] [id number] [address] [place] [phone] October, Major depressive disorder, r ecurrent episode, moderate F33.1 [place] [address] [facility] [id number] [address] [place] [phone] October, Major depressive disorder, r ecurrent episode, moderate F33.1 and Arthralgia of hip, unspecified laterality M25.559 [place] [address] [facility] [id number] [address] [place] [phone] October, Grief F43.20 ; Hypertension I10 ; Hyperlipidemia, unspecified hyperlipidemia type E78.5 ; Other chronic pain G89.29 and Allergic rhinitis, unspecified allergic rhinitis type J30.9 [place] [address] [facility] [id number] [address] [place] [phone] October, Major depressive disorder, r ecurrent episode, moderate F33.1 [place] [address] [facility] [id number] [address] [place] [phone] Sep, Major depressive disorder, r ecurrent episode, moderate F33.1 [place] [address] [facility] [id number] [address] [place] [phone] Sep, [place] [address] [facility] [id number] [address] [place] [phone] Sep, Major depressive disorder, r ecurrent episode, moderate F33.1 [facility] [address] [facility] [id number] [address] [place] [phone] Sep, Grief F43.20 [facility] [address] [facility] [id number] [address] [place] [phone] Aug, Major depressive disorder, r ecurrent episode, moderate F33.1 [place] [address] [place] [id number] [address] [place] [phone] Aug, Bipolar 1 disorder, mixed F3 1.60 [place] [address] [place] [id number] [address] [place] [phone] Aug, Allergic rhinitis J30.9 ; Ce rvicalgia M54.2 and Low back pain M54.5 [place] [id number] [place] [phone] Aug, Major depressive disorder, r ecurrent episode, moderate F33.1 [facility] [address] [facility] [id number] [address] [place] [phone] Aug, Sinusitis J32.9 and Tobacco 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 [facility] [address] [place] [id number] [address] [place] [phone] Aug, [facility] [address] [place] [id number] [address] [place] [phone] Aug, Depressive disorder, not els ewhere classified F32.9 ; Hormone replacement therapy Z79.[address] scan, head R93.0 [facility] [address] [facility] [id number] [address] [place] [phone] Aug, Major depressive disorder, r ecurrent episode, moderate F33.1 [facility] [address] [facility] [id number] [address] [place] [phone] Jul, Major depressive disorder, r ecurrent episode, moderate F33.1 [facility] [address] [place] [id number] [address] [place] [phone] Jul, Abdominal pain R10.9 and Hyp ertension I10 [facility] [address] [id number] [address] [place] [phone] 08 Jul, 2015 [facility] [address] [facility] [id number] [address] [place] [phone] Jul, Major depressive disorder, r ecurrent episode, moderate F33.1 [facility] [address] [facility] [id number] [address] [place] [phone] Jul, [facility] [address] [id number] [address] [place] [phone] Jul, [facility] [address] [facility] [id number] [address] [place] [phone] Jun, [facility] [address] [place] [id number] [address] [place] [phone] Jun, Depressive disorder, not els ewhere classified F32.9 [facility] [address] [facility] [id number] [address] [place] [phone] Jun, [facility] [address] [facility] [id number] [address] [place] [phone] Jun, [facility] [address] [facility] [id number] [address] [place] [phone] Jun, Arthralgia of hip, unspecifi ed laterality M25.559 ; Bruising, spontaneous R23.3 and Night sweats R61 [facility] [address] [facility] [id number] [address] [place] [phone] Jun, [facility] [address] [facility] [id number] [address] [place] [phone] Jun, [facility] [address] [facility] [id number] [address] [place] [phone] May, [facility] [address] [place] [id number] [address] [place] [phone] May, Myalgia M79.1 and Screening, lipid Z13.220 [facility] [address] [facility] [id number] [address] [place] [phone] Apr, Status post cervical spinal fusion Z98.1 ; Fibromyalgia M79.7 and Unsteady gait R26.81 [facility] [address] [id number] [address] [place] [phone] Nov, [facility] [address] [id number] [address] [place] [phone] Nov, [facility] [address] [id number] [address] [place] [phone] October, [facility] [address] [id number] [address] [place] [phone] October, [facility] [address] [facility] [id number] [address] [place] [phone] October, [facility] [address] [facility] [id number] [address] [place] [phone] October, [facility] [address] [facility] [id number] [address] [place] [phone] October, [facility] [address] [facility] [id number] [address] [place] [phone] October, Dysuria 788.1 ; Nausea 787.0 2 and Urinary tract infection 599.0 [facility] [address] [id number] [address] [place] [phone] Sep, [facility] [address] [id number] [address] [place] [phone] Sep, [facility] [address] [facility] [id number] [address] [place] [phone] Aug, [facility] [address] [id number] [address] [place] [phone] Aug, [facility] [address] [facility] [id number] [address] [place] [phone] Aug, [facility] [address] [id number] [address] [place] [address], [place] [phone] 24 Aug, 2014 [facility] [address] [id number] [address] [place] [address], [place] [phone] 23 Aug, 2014 [facility] [address] [id number] [address] [place] [address], [place] [id number] 19 Aug, 2014 [facility] [address] [id number] [address] [place] [address], [place] [phone] 19 Aug, 2014 [facility] [address] [id number] [address] [place] [address], [place] [id number] 19 Aug, 2014 [facility] [address] [id number] [address] [place] [address], [place] [phone] 19 Aug, 2014 [facility] [address] [id number] [address] [place] [address], [place] [phone] 18 Aug, 2014 [facility] [address] [id number] [address] [place] [address], [place] [phone] 18 Aug, 2014 [facility] [address] [id number] [address] [place] [address], [place] [id number] 13 Aug, 2014 [facility] [address] [id number] [address] [place] [address], [place] [id number] 13 Aug, 2014 [facility] [address] [id number] [address] [place] [address], [place] [phone] 11 Aug, 2014 [facility] [address] [id number] [address] [place] [address], [place] [id number] 11 Aug, 2014 [facility] [address] [id number] [address] [place] [address], [place] [id number] 06 Aug, 2014 [facility] [address] [id number] [address] [place] [address], [place] [phone] 06 Aug, 2014 [facility] [address] [id number] [address] [place] [address], [place] [id number] 05 Aug, 2014 [facility] [address] [id number] [address] [place] [address], [place] [id number] 05 Aug, 2014 [facility] [address] [id number] [address] [place] [address], [place] [address] Aug, 2014 [facility] [address] [id number] [address] [place] [address], [place] [id number] Aug, [facility] [address] [id number] [address] [place] [address], [place] [phone] Aug, [facility] [address] [id number] [address] [place] [address], [place] [id number] Jul, 2014 [facility] [address] [id number] [address] [place] [address], [place] [id number] Jul, 2014 [facility] [address] [id number] [address] [place] [address], [place] [id number] Jul, 2014 [facility] [address] [id number] [address] [place] [address], [place] [phone] Jul, 2014 [facility] [address] [id number] [address] [place] [address], [place] [phone] Jul, 2014 [facility] [address] [id number] [address] [place] [address], [place] [id number] Jul, 2014 [facility] [address] [id number] [address] [place] [address], [place] [phone] Jul, 2014 [facility] [address] [id number] [address] [place] [address], [place] [id number] Jul, 2014 [facility] [address] [id number] [address] [place] [address], [place] [id number] Jul, 2014 [facility] [address] [id number] [address] [place] [address], [place] [id number] Jul, 2014 [facility] [address] [id number] [address] [place] [address], [place] [id number] 18 Jul, 2014 [facility] [address] [id number] [address] [place] [address], [place] [id number] Jul, [facility] [address] [id number] [address] [place] [address], [place] [phone] Jul, [facility] [address] [id number] [address] [place] [address], [place] [phone] Jul, [facility] [address] [id number] [address] [place] [address], [place] [phone] Jun, [facility] [address] [id number] [address] [place] [address], [place] [id number] Jun, [facility] [address] [id number] [address] [place] [address], [place] [id number] Jun, [facility] [address] [id number] [address] [place] [address], [place] [id number] Jun, [facility] [address] [id number] [address] [place] [address], [place] [address] Jun, [facility] [address] [id number] [address] [place] [address], [place] [id number] Jun, [facility] [address] [id number] [address] [place] [address], [place] [phone] May, [facility] [address] [id number] [address] [place] [address], [place] [address] May, [facility] [address] [id number] [address] [place] [address], [place] [id number] May, [facility] [address] [id number] [address] [place] [address], [place] [address] May, [facility] [address] [id number] [address] [place] [address], [place] [id number] May, [facility] [address] [id number] [address] [place] [address], [place] [address] May, [facility] [address] [id number] [address] [place] [address], [place] [address] Apr, [facility] [address] [id number] [address] [place] [address], [place] [address] Apr, [facility] [address] [id number] [address] [place] [address], [place] [address] Apr, [facility] [address] [id number] [address] [place] [address], [place] [id number] Apr, [facility] [address] [id number] [address] [place] [address], [place] [address] Apr, [facility] [address] [id number] [address] [place] [address], [place] [address] Apr, [facility] [address] [id number] [address] [place] [address], [place] [address] Mar, [facility] [address] [id number] [address] [place] [address], [place] [address] Mar, [facility] [address] [id number] [address] [place] [address], [place] [address] Mar, [facility] [address] [id number] [address] [place] [address], [place] [address] Mar, [facility] [address] [id number] [address] [place] [address], [place] [address] Mar, [facility] [address] [id number] [address] [place] [address], [place] [address] Mar, [facility] [address] [id number] [address] [place] [address], [place] [address] Mar, [facility] [address] [id number] [address] [place] [id number] Mar, [facility] [address] [id number] [address] [place] [address], [place] [id number] Mar, [facility] [address] [id number] [address] [place] [address], [place] [address] Mar, [facility] [address] [id number] [address] [place] [address], [place] [address] Mar, [facility] [address] [id number] [address] [place] [address], [place] [address] Mar, [facility] [address] [id number] [address] [place] [address], [place] [id number] 30 Feb, 2014 [facility] [address] [id number] [address] [place] [address], [place] [address] Feb, [facility] [address] [id number] [address] [place] [address], [place] [address] Feb, [facility] [address] [id number] [address] [place] [address], [place] [address] Feb, [facility] [address] [id number] [address] [place] [address], [place] [id number] Feb, [facility] [address] [id number] [address] [place] [address], [place] [address] Feb, [facility] [address] [id number] [address] [place] [address], [place] [address] Feb, [facility] [address] [id number] [address] [place] [address], [place] [address] Jan, [facility] [address] [id number] [address] [place] [address], [place] [address] Jan, [facility] [address] [id number] [address] [place] [address], [place] [address] Jan, [facility] [address] [id number] [address] [place] [address], [place] [address] Dec, [facility] [address] [id number] [address] [place] [address], [place] [address] Dec, [facility] [address] [id number] [address] [place] [address], [place] [address] Dec, [facility] [address] [id number] [address] [place] [address], [place] [address] Dec, [facility] [address] [id number] [address] [place] [address], [place] [address] Sep, [facility] [address] [id number] [address] [place] [address], [place] [address] Sep, [facility] [address] [id number] [address] [place] [address], [place] [address] Sep, [facility] [address] [id number] [address] [place] [address], [place] [address] Sep, [facility] [address] [id number] [address] [place] [address], [place] [address] Sep, [facility] [address] [id number] [address] [place] [address], [place] [address] Sep, [facility] [address] [id number] [address] [place] [address], [place] [address] Sep, [facility] [address] [id number] [address] [place] [address], [place] [address] Sep, [facility] [address] [id number] [address] [place] [address], [place] [address] Aug, [facility] [address] [id number] [address] [place] [address], [place] [address] Aug, [facility] [address] [id number] [address] [place] [address], [place] [address] May, [facility] [address] [id number] [address] [place] [address], [place] [address] May, [facility] [address] [id number] [address] [place] [address], [place] [address] Apr, [facility] [address] [id number] [address] [place] [address], [place] [address] Apr, [facility] [address] [id number] [address] [place] [address], [place] [address] Apr, [facility] [address] [id number] [address] [place] [address], [place] [address] Apr, [facility] [address] [id number] [address] [place] [address], [place] [address] Apr, [facility] [address] [id number] [address] [place] [address], [place] [address] Apr, [facility] [address] [id number] [address] [place] [address], [place] [address] 18 May, 2012 [facility] [address] [id number] [address] [place] [address], [place] [address] 18 May, 2012 [facility] [address] [id number] [address] [place] [address], [place] [id number] 15 May, 2012 [facility] [address] [id number] [address] [place] [address], [place] [address] 15 May, 2012 [facility] [address] [id number] [address] [place] [address], [place] [address] 13 May, 2012 [facility] [address] [id number] [address] [place] [address], [place] [address] 13 May, 2012 [facility] [address] [id number] [address] [place] [address], [place] [address] 13 Apr, 2012 [facility] [address] [id number] [address] [place] [address], [place] [address] 13 Apr, 2012 [facility] [address] [id number] [address] [place] [address], [place] [address] Apr, [facility] [address] [id number] [address] [place] [address], [place] [address] Apr, [facility] [address] [id number] [address] [place] [address], [place] [address] Apr, [facility] [address] [id number] [address] [place] [address], [place] [address] Apr, [facility] [address] [id number] [address] [place] [address], [place] [address] Apr, [facility] [address] [id number] [address] [place] [address], [place] [address] Apr, [facility] [address] [id number] [address] [place] [address], [place] [address] Apr, [facility] [address] [id number] [address] [place] [address], [place] [address] Apr, [facility] [address] [id number] [address] [place] [address], [place] [address] Mar, [facility] [address] [id number] [address] [place] [address], [place] [address] Mar, [facility] [address] [id number] [address] [place] [address], [place] [address] Mar, [facility] [address] [id number] [address] [place] [address], [place] [address] Mar, [facility] [address] [id number] [address] [place] [address], [place] [address] Mar, [facility] [address] [id number] [address] [place] [address], [place] [address] Mar, [facility] [address] [id number] [address] [place] [address], [place] [address] Mar, [facility] [address] [id number] [address] [place] [address], [place] [address] Mar, [facility] [address] [id number] [address] [place] [address], [place] [address] Mar, [facility] [address] [id number] [address] [place] [address], [place] [address] Feb, [facility] [address] [id number] [address] [place] [address], [place] [address] 16 Feb, 2012 [facility] [address] [id number] [address] [place] [address], [place] [address] 11 Feb, 2012 [facility] [address] [id number] [address] [place] [address], [place] [address] Jan, [facility] [address] [id number] [address] [place] [address] [place] [address] Jan, [facility] [address] [id number] [address] [place] [address], [place] [address] Jan, [facility] [address] [id number] [address] [place] [address], [place] [address] Jan, [facility] [address] [id number] [address] [place] [address], [place] [address] Jan, [facility] [address] [id number] [address] [place] [address], [place] [address] Jan, [facility] [address] [id number] [address] [place] [address], [place] [address] 16 Jan, 2012 [facility] [address] [id number] [address] [place] [address], [place] [address] Jan, [facility] [address] [id number] [address] [place] [address], [place] [address] Jan, [facility] [address] [id number] [address] [place] [address], [place] [address] Jan, [facility] [address] [id number] [address] [place] [address], [place] [address] Dec, [facility] [address] [id number] [address] [place] [address], [place] [address] Dec, [facility] [address] [id number] [address] [place] [address], [place] [address] Dec, [facility] [address] [id number] [address] [place] [address], [place] [address] Dec, [facility] [address] [id number] [address] [place] [address], [place] [address] Nov, [facility] [address] [id number] [address] [place] [address], [place] [address] Nov, [facility] [address] [id number] [address] [place] [address], [place] [address] Nov, [facility] [address] [id number] [address] [place] [phone] October, [facility] [address] [id number] [address] [place] [phone] October, [facility] [address] [id number] [address] [place] [phone] October, [facility] [address] [id number] [address] [place] [phone] October, [facility] [address] [id number] [address] [place] [phone] October, [facility] [address] [id number] [address] [place] [phone] October, [facility] [address] [id number] [address] [place] [phone] Aug, [facility] [address] [id number] [address] [place] [phone] Mar, [facility] [address] [id number] [address] [place] [phone] Nov, [facility] [address] [id number] [address] [place] [phone] May, [facility] [address] [id number] [address] [place] [phone] May, [facility] [address] [id number] [address] [place] [phone] Apr, [facility] [address] [id number] [address] [place] [phone] Mar, [facility] [address] [id number] [address] [place] [phone] Mar, IMMUNIZATIONS No Known Immunizations SOCIAL HISTORY [...]
--- OUTSIDE RECORDS SUMMARY | 2019-06-19 05:41 | XMS REPORT ---
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 Name Role Phone NAHOMY HANCOCK Unavailable PROBLEMS Type Condition ICD9-CM Code BVN12-DF Code Onset Dates Condition S tatus SNOMED Code Problem Hormone replacement therapy Z79.890 Ac tive 468237386 Problem Abnormal CT scan, head R93.0 Active 767709106 Problem Sensorineural hearing loss (SNHL) of both ears H90 .3 Active 153273007 Problem History of colon polyps Z86.010 Active 365778784 Problem Bruising, spontaneous R23.3 Active 059207503 Problem Generalized anxiety disorder F41.1 A ctive 95989804 Problem Arthralgia of hip, unspecified laterality M25.559 Active 14034269 Problem Hematuria, unspecified type R31.9 Ac tive 66111219 Problem Imbalance R26.89 Active 153327142 Problem Hammer toe of right foot M20.41 Activ e 622901153 Problem Plantar wart of right foot B07.0 Act mitchell [id number] Problem Sciatica of left side M54.32 Active 15714285 Problem Hyperlipidemia, unspecified hyperlipidemia type E7 8.5 Active 07930739 Problem Hypertension I10 Active 0761096 3 Problem Night sweats R61 Active 6456510 0 Problem Fibromyalgia M79.7 Active 5893889 7 Problem Major depressive disorder, recurrent episode, moderate F33.1 Active 017147904 Problem Acute left-sided low back pain with left-sided sciatica M54.42 Active 968337003 Problem Bladder spasm N32.89 Active 955665 006 Problem Gastritis without bleeding, unspecified chronicity, unspecified gastritis type K29.70 Active 754507286 Problem Bipolar 1 disorder, mixed F31.60 Acti ve 72462182 Problem Grief F43.20 Active 14913527 Problem Other chronic pain G89.29 Active 8 2162061 Problem Allergic rhinitis J30.9 Active 61 924278 Problem Hot flashes due to menopause N95.1 A ctive 851253021 Problem Ataxia R27.0 Active 29137589 Problem Hearing loss, unspecified laterality H91.90 Active 01621763 ALLERGIES No Information ENCOUNTERS Encounter Location Date Diagnosis [facility] [address] [facility] [id number] [address] [place] [address] Jan, [facility] [address] [facility] [id number] [address] [place] [address] Jan, [facility] [address] [facility] [id number] [address] [place] [address] Jan, [facility] [address] [place] [id number] [address] [place] [address] Dec, [facility] [address] [place] [id number] [address] [place] [address] Dec, [facility] [address] [place] [id number] [address] [place] [address] Dec, Bipolar 1 disorder, mixed F3 1.60 [facility] [address] [place] [id number] [address] [place] [address] Dec, Bipolar 1 disorder, mixed F3 1.60 [facility] [address] [place] [id number] [address] [place] [address] Nov, Bipolar 1 disorder, mixed F3 1.60 [facility] [address] [place] [id number] [address] [place] [address] Nov, Bipolar 1 disorder, mixed F3 1.60 [facility] [address] [facility] [id number] [address] [place] [address] Nov, Bipolar 1 disorder, mixed F3 1.60 [facility] [address] [place] [id number] [address] [place] [address] Nov, Allergic rhinitis J30.9 [facility] [address] [place] [id number] [address] [place] [address] Nov, Allergic rhinitis J30.9 [facility] [address] [place] [id number] [address] [place] [address] Nov, [facility] [address] [place] [address] Nov, Bipolar 1 disorder, mixed F3 1.60 [facility] [address] [address] Nov, Fibromyalgia M79.7 and Aller gic rhinitis J30.9 [facility] [address] [place] [id number] [address] [place] [address] October, Bipolar 1 disorder, mixed F3 1.60 [facility] [address] [place] [id number] [place] [address] October, Acute nasopharyngitis J00 [facility] [address] [address] October, Bitten or stung by nonvenomo us insect and other nonvenomous arthropods, initial encounter W57.XXXA and Insect bite (nonvenomous) of abdominal wall, initial encounter S30.861A [place] [address] [address] October, Insect bite (nonvenomous) of abdominal wall, initial encounter S30.861A ; Bitten or stung by nonvenomous insect and other nonvenomous arthropods, initial encounter W57.XXXA ; Allergic rhinitis J30.9 and Low back pain M54.5 [facility] [address] [place] [address] October, Bipolar 1 disorder, mixed F3 1.60 [facility] [address] [address] October, [facility] [address] [address] October, [facility] [address] [place] [address] October, Bipolar 1 disorder, mixed F3 1.60 [facility] [address] [facility] [id number] [address] [place] [address] Sep, Bipolar 1 disorder, mixed F3 1.60 [facility] [address] [facility] [id number] [address] [place] [address] Sep, Other chronic pain G89.29 [facility] [address] [facility] [id number] [address] [place] [address] Sep, [facility] [address] [facility] [id number] [address] [place] [address] Sep, Bipolar 1 disorder, mixed F3 1.60 [facility] [address] [place] [id number] [address] [place] [address] Sep, Allergic rhinitis J30.9 and Sciatica of left side M54.32 [facility] [address] [place] [id number] [address] [place] [address] Sep, Bipolar 1 disorder, mixed F3 1.60 [facility] [address] [place] [id number] [address] [place] [address] Sep, Bipolar 1 disorder, mixed F3 1.60 and Generalized anxiety disorder F41.1 [facility] [address] [place] [id number] [address] [place] [address] Aug, [facility] [address] [facility] [id number] [address] [place] [address] Aug, Bipolar 1 disorder, mixed F3 1.60 [facility] [address] [facility] [id number] [address] [place] [address] Aug, Bipolar 1 disorder, mixed F3 1.60 [facility] [address] [facility] [id number] [address] [place] [address] Aug, [facility] [address] [place] [id number] [address] [place] [address] Aug, Generalized anxiety disorder F41.1 [facility] [address] [facility] [id number] [address] [place] [address] Aug, Bipolar 1 disorder, mixed F3 1.60 [facility] [address] [facility] [id number] [address] [place] [address] Aug, Plantar wart of right foot B 07.0 [facility] [address] [facility] [id number] [address] [place] [address] Aug, Bipolar 1 disorder, mixed F3 1.60 [facility] [address] [facility] [id number] [address] [place] [address] Jul, Bipolar 1 disorder, mixed F3 1.60 [facility] [address] [facility] [id number] [address] [place] [address] Jul, [facility] [address] [place] [id number] [address] [place] [address] Jul, Bipolar 1 disorder, mixed F3 1.60 [facility] [address] [facility] [id number] [address] [place] [address] Jul, Generalized anxiety disorder F41.1 [facility] [address] [facility] [id number] [address] [place] [address] Jul, Bipolar 1 disorder, mixed F3 1.60 [facility] [address] [place] [id number] [address] [place] [address] Jul, Acute left-sided low back pa in with left-sided sciatica M54.42 [facility] [address] [facility] [id number] [address] [place] [address] Jul, Coccydynia M53.3 [facility] [address] [facility] [id number] [address] [place] [address] Jun, Bipolar 1 disorder, mixed F3 1.60 [facility] [address] [facility] [id number] [address] [place] [address] Jun, Acute nasopharyngitis J00 [place] [address] [address] Jun, Bipolar 1 disorder, mixed F3 1.60 [place] [address] [address] Jun, Fibromyalgia M79.7 [place] [address] [address] Jun, Bipolar 1 disorder, mixed F3 1.60 [place] [address] [address] Jun, Fibromyalgia M79.7 and Bipol ar 1 disorder, mixed F31.60 [place] [address] [address] May, Bipolar 1 disorder, mixed F3 1.60 ; Generalized anxiety disorder F41.1 and Other intermission coordinator (current) drug therapy Z79.899 [place] [address] [address] May, Bipolar 1 disorder, mixed F3 1.60 [facility] [address] [address] 14 May, 2017 Cough R05 and Body aches R52 [facility] [address] [address] 10 May, 2017 Bladder spasm N32.89 and Acu te cystitis without hematuria N30.00 [place] [address] [address] May, Bipolar 1 disorder, mixed F3 1.60 [place] [address] [address] Apr, [place] [address] [address] Apr, Major depressive disorder, r ecurrent episode, moderate F33.1 and Encounter for immunization Z23 [place] [address] [address] Apr, Bipolar 1 disorder, mixed F3 1.60 [facility] [address] [place] [address] Apr, Bipolar 1 disorder, mixed F3 1.60 [place] [address] [address] Apr, Bipolar 1 disorder, mixed F3 1.60 [facility] [address] [address] Apr, Yeast vaginitis B37.3 [place] [address] [place] [address] 09 Apr, 2017 Bipolar 1 disorder, mixed F3 1.60 [facility] [address] [address] 07 Apr, 2017 Cellulitis L03.[address] for immunization Z23 [place] [address] [address] Apr, Bipolar 1 disorder, mixed F3 1.60 [place] [address] [address] Mar, Bipolar 1 disorder, mixed F3 1.60 [place] [address] [address] Mar, Bipolar 1 disorder, mixed F3 1.60 [facility] [address] [address] Mar, Imbalance R26.89 and Encount er for immunization Z23 [place] [address] [place] [address] Mar, Generalized anxiety disorder F41.1 [place] [address] [address] Mar, Bipolar 1 disorder, mixed F3 1.60 [place] [address] [place] [address] [place] [address] Mar, Generalized anxiety disorder F41.1 [facility] [address] [address] Mar, Bipolar 1 disorder, mixed F3 1.60 [facility] [address] [address] Mar, Bipolar 1 disorder, mixed F3 1.60 [place] [address] [address] Feb, Bipolar 1 disorder, mixed F3 1.60 [place] [address] [address] Feb, Bipolar 1 disorder, mixed F3 1.60 and Generalized anxiety disorder F41.1 [place] [address] [address] Feb, Gastritis without bleeding, unspecified chronicity, unspecified gastritis type K29.70 ; Hammer toe of right foot M20.41 and Other viral warts B07.8 [place] [address] [address] Feb, Bipolar 1 disorder, mixed F3 1.60 [place] [address] [address] Feb, Bipolar 1 disorder, mixed F3 1.60 [place] [address] [place] [address] Feb, Bipolar 1 disorder, mixed F3 1.60 [place] [address] [address] Jan, Encounter for screening mamm ogram for breast cancer Z12.31 ; Other viral warts B07.8 and Allergic rhinitis J30.9 [place] [address] [place] [id number] [address] [place] [address] Jan, Bipolar 1 disorder, mixed F3 1.60 [place] [address] [facility] [id number] [address] [place] [address] Jan, Bipolar 1 disorder, mixed F3 1.60 [facility] [address] [facility] [id number] [address] [place] [address] Jan, [facility] [address] [facility] [id number] [address] [place] [address] Jan, Bipolar 1 disorder, mixed F3 1.60 [place] [address] [facility] [id number] [address] [place] [address] Jan, Bipolar 1 disorder, mixed F3 1.60 [place] [address] [facility] [id number] [address] [place] [address] Jan, Allergic rhinitis J30.9 ; He maturia R31.9 and Colon cancer screening Z12.11 [place] [address] [facility] [id number] [address] [place] [address] Dec, Bipolar 1 disorder, mixed F3 1.60 [place] [address] [facility] [id number] [address] [place] [address] Dec, Bipolar 1 disorder, mixed F3 1.60 ; Generalized anxiety disorder F41.1 and Other intermission coordinator (current) drug therapy Z79.899 [place] [address] [place] [id number] [address] [place] [address] Dec, Bipolar 1 disorder, mixed F3 1.60 [place] [address] [facility] [id number] [address] [place] [address] Dec, Bipolar 1 disorder, mixed F3 1.60 [place] [address] [facility] [id number] [address] [place] [address] Dec, Bipolar 1 disorder, mixed F3 1.60 [place] [address] [facility] [id number] [address] [place] [address] Dec, Low back pain M54.5 and Recu rrent urinary tract infection N39.0 [place] [address] [facility] [id number] [address] [place] [address] Nov, Bipolar 1 disorder, mixed F3 1.60 [facility] [address] [id number] [address] [place] [address] Nov, Bipolar 1 disorder, mixed F3 1.60 [facility] [address] [facility] [id number] [address] [place] [address] Nov, Bipolar 1 disorder, mixed F3 1.60 [facility] [address] [facility] [id number] [address] [place] [address] Nov, Bipolar 1 disorder, mixed F3 1.60 [facility] [address] [facility] [id number] [address] [place] [address] Nov, [facility] [address] [facility] [id number] [address] [place] [address] Nov, Anesthesia of skin R20.0 ; F requent UTI N39.0 ; Tobacco abuse Z72.0 and Colon cancer screening Z12.11 [facility] [address] [facility] [id number] [address] [place] [address] Nov, Bipolar 1 disorder, mixed F3 1.60 [facility] [address] [facility] [id number] [address] [place] [address] October, Bipolar 1 disorder, mixed F3 1.60 [facility] [address] [facility] [id number] [address] [place] [address] October, Bipolar 1 disorder, mixed F3 1.60 [facility] [address] [facility] [id number] [address] [place] [address] October, Bipolar 1 disorder, mixed F3 1.60 [facility] [address] [facility] [id number] [address] [place] [address] October, Bipolar 1 disorder, mixed F3 1.60 [facility] [address] [facility] [id number] [address] [place] [address] October, Bipolar 1 disorder, mixed F3 1.60 [facility] [address] [address] October, Cervicalgia M54.2 and Bipola r 1 disorder, mixed F31.60 [place] [address] [place] [address] October, Hypertension I10 ; Hyperlipi demia, unspecified hyperlipidemia type E78.5 and Family history of thyroid disease Z83.49 [place] [address] [place] [address] October, [place] [address] [place] [address] 08 Oct, 2016 Hypertension I10 ; Hyperlipi demia, unspecified hyperlipidemia type E78.5 and Family history of thyroid problem Z83.49 [place] [address] [place] [address] October, Bipolar 1 disorder, mixed F3 1.60 [place] [address] [address] Sep, Bipolar 1 disorder, mixed F3 1.60 [place] [address] [address] Sep, Bipolar 1 disorder, mixed F3 1.60 [place] [address] [address] Sep, Bipolar 1 disorder, mixed F3 1.60 [place] [address] [address] Sep, History of colon polyps Z86. 010 and Hematochezia K92.1 [place] [address] [address] Sep, Major depressive disorder, r ecurrent episode, moderate F33.1 [place] [address] [address] Sep, Bipolar 1 disorder, mixed F3 1.60 [place] [address] [address] Aug, Hot flashes due to menopause N95.1 [facility] [address] [place] [address] Aug, Bipolar 1 disorder, mixed F3 1.60 [facility] [address] [address] Aug, [facility] [address] [address] Aug, Bipolar 1 disorder, mixed F3 1.60 [facility] [address] [address] Aug, Bipolar 1 disorder, mixed F3 1.60 [facility] [address] [address] Aug, Hot flashes due to menopause N95.1 ; Cervicalgia M54.2 and Ataxia R27.0 [facility] [address] [address] Jul, Bipolar 1 disorder, mixed F3 1.60 [facility] [address] [address] Jul, Bipolar 1 disorder, mixed F3 1.60 [facility] [address] [address] Jul, Bipolar 1 disorder, mixed F3 1.60 [facility] [address] [address] Jul, Bipolar 1 disorder, mixed F3 1.60 [place] [address] [place] [address] Jul, Bipolar 1 disorder, mixed F3 1.60 [facility] [address] [address] Jul, Cervicalgia M54.2 ; Tremor R 25.1 ; Hearing abnormally acute, unspecified laterality H93.239 ; Alopecia L65.9 ; Encounter for immunization Z23 and Family history of thyroid disease Z83.49 [facility] [address] Jul, Bipolar 1 disorder, mixed F3 1.60 [place] [address] Jun, [place] [address] Jun, Hearing disorder, unspecifie d laterality H93.299 [place] [address] Jun, Bipolar 1 disorder, mixed F3 1.60 [place] [address] Jun, Bipolar 1 disorder, mixed F3 1.60 [place] [address] [place] [address] Jun, Allergic rhinitis J30.9 [place] [address] Jun, Bipolar 1 disorder, mixed F3 1.60 [place] [address] [address] Jun, Bipolar 1 disorder, mixed F3 1.60 [place] [address] [address] Jun, Allergic rhinitis J30.9 [facility] [address] [place] [id number] [place] [address] Jun, Allergic rhinitis J30.9 [facility] [address] [place] [address] Jun, Bipolar 1 disorder, mixed F3 1.60 [place] [address] [address] May, Bipolar 1 disorder, mixed F3 1.60 [facility] [address] [facility] [id number] [address] [place] [address] May, Bipolar 1 disorder, mixed F3 1.60 [facility] [address] [facility] [id number] [address] [place] [address] May, [facility] [address] [facility] [id number] [address] [place] [address] May, Bipolar 1 disorder, mixed F3 1.60 [facility] [address] [facility] [id number] [address] [place] [address] May, Bipolar 1 disorder, mixed F3 1.60 [facility] [address] [facility] [id number] [address] [place] [address] May, [facility] [address] [facility] [id number] [address] [place] [address] May, [facility] [address] [facility] [id number] [address] [place] [address] May, [facility] [address] [facility] [id number] [address] [place] [address] May, Abdominal pain, unspecified location R10.9 [facility] [address] [facility] [id number] [address] [place] [address] May, [facility] [address] [facility] [id number] [address] [place] [address] Apr, Hematuria R31.9 ; Ataxia R27 .0 and Hearing loss, unspecified laterality H91.90 [facility] [address] [facility] [id number] [address] [place] [address] Apr, Bipolar 1 disorder, mixed F3 1.60 [facility] [address] [facility] [id number] [address] [place] [address] Apr, Acute effusion of both middl e ears H65.193 [facility] [address] [facility] [id number] [address] [place] [address] Apr, Hematuria R31.9 and Pyelonep hritis N12 [facility] [address] [place] [id number] [place] [address] Apr, [facility] [address] [place] [id number] [place] [address] Mar, Bipolar 1 disorder, mixed F3 1.60 [place] [address] [place] [id number] [place] [address] Mar, [place] [address] [place] [id number] [place] [id number] Mar, Bipolar 1 disorder, mixed F3 1.60 [place] [address] [place] [id number] [place] [id number] Mar, Bipolar 1 disorder, mixed F3 1.60 [place] [address] [id number] Mar, Encounter for immunization Z 23 and Gastritis without bleeding, unspecified chronicity, unspecified gastritis type K29.70 [place] [address] [place] [id number] [place] [id number] Mar, Bipolar 1 disorder, mixed F3 1.60 and Grief F43.20 [place] [address] [place] [id number] [place] [id number] Mar, Gastritis without bleeding, unspecified chronicity, unspecified gastritis type K29.70 [place] [address] [place] [id number] [place] [phone] Mar, Bipolar 1 disorder, mixed F3 1.60 [place] [address] [place] [id number] [place] [phone] Mar, Gastritis without bleeding, unspecified chronicity, unspecified gastritis type K29.70 [place] [address] [place] [id number] [place] [phone] Mar, [place] [address] [place] [id number] [id number] Feb, Bipolar 1 disorder, mixed F3 1.60 [facility] [id number] [place] [address] Feb, Bipolar 1 disorder, mixed F3 1.60 and Grief F43.20 [facility] [address] [place] [address] [id number] [place], [place] [id number] 22 Feb, 2016 Gastritis without bleeding, unspecified chronicity, unspecified gastritis type K29.70 [facility] [address] [place] [id number] [address] [place] [id number] 14 Feb, 2016 Bipolar 1 disorder, mixed F3 1.60 [facility] [address] [place] [address] 09 Feb, 2016 Gastroesophageal reflux dise ase, esophagitis presence not specified K21.9 [place] [address] [address] Jan, Bipolar 1 disorder, mixed F3 1.60 [place] [address] [address] Jan, Bipolar 1 disorder, mixed F3 1.60 and Unsteady gait R26.81 [place] [address] [place] [address] Jan, Bipolar 1 disorder, mixed F3 1.60 [place] [address] [place] [id number] [address] [place] [address] Jan, Bipolar 1 disorder, mixed F3 1.60 and Other intermission coordinator (current) drug therapy Z79.899 [place] [address] [address] Jan, Bipolar 1 disorder, mixed F3 1.60 [place] [address] [place] [id number] [address] [place] [address] Jan, Bipolar 1 disorder, mixed F3 1.60 [place] [address] [place] [address] Jan, Bipolar 1 disorder, mixed F3 1.60 ; Grief F43.20 and Other correction (current) drug therapy Z79.899 [place] [address] [place] [id number] [address] [place] [address] Jan, Bipolar 1 disorder, mixed F3 1.60 [place] [address] [place] [id number] [address] [place] [address] Dec, [place] [address] [place] [id number] [address] [place] [address] Dec, Bipolar 1 disorder, mixed F3 1.60 ; Vitamin D deficiency, unspecified E55.9 ; H/O allergic rhinitis Z87.09 ; Other chronic pain G89.29 and Dorsalgia, unspecified M54.9 [place] [address] [place] [id number] [address] [place] [address] Dec, [place] [address] [place] [id number] [address] [place] [address] Dec, Bipolar 1 disorder, mixed F3 1.60 [place] [address] [place] [id number] [address] [place] [address] Dec, Major depressive disorder, r ecurrent episode, moderate F33.1 [place] [address] [place] [id number] [address] [place] [address] Dec, Major depressive disorder, r ecurrent episode, moderate F33.1 [place] [address] [place] [id number] [address] [place] [address] Nov, [place] [address] [place] [id number] [address] [place] [address] Nov, Bipolar 1 disorder, mixed F3 1.60 [place] [address] [place] [id number] [address] [place] [address] Nov, Major depressive disorder, r ecurrent episode, moderate F33.1 [place] [address] [place] [id number] [place] [address] Nov, Cervicalgia M54.2 ; Arthralg ia of hip, unspecified laterality M25.559 ; Allergic rhinitis J30.9 and Hormone replacement therapy Z79.890 [facility] IN [facility] [address] [facility] [id number] [address] [place] [address] Nov, Other seasonal allergic rhin itis J30.2 [facility] [address] [facility] [id number] [address] [place] [address] October, Major depressive disorder, r ecurrent episode, moderate F33.1 [facility] [address] [facility] [id number] [address] [place] [address] October, Major depressive disorder, r ecurrent episode, moderate F33.1 and Arthralgia of hip, unspecified laterality M25.559 [facility] [address] [facility] [id number] [address] [place] [address] October, Grief F43.20 ; Hypertension I10 ; Hyperlipidemia, unspecified hyperlipidemia type E78.5 ; Other chronic pain G89.29 and Allergic rhinitis, unspecified allergic rhinitis type J30.9 [facility] [address] [facility] [id number] [address] [place] [address] October, Major depressive disorder, r ecurrent episode, moderate F33.1 [facility] [address] [facility] [id number] [address] [place] [address] Sep, Major depressive disorder, r ecurrent episode, moderate F33.1 [facility] [address] [facility] [id number] [address] [place] [address] Sep, [facility] [address] [facility] [id number] [address] [place] [address] Sep, Major depressive disorder, r ecurrent episode, moderate F33.1 [facility] [address] [facility] [id number] [address] [place] [address] Sep, Grief F43.20 [facility] [address] [place] [id number] [address] [place] [address] Aug, Major depressive disorder, r ecurrent episode, moderate F33.1 [facility] [address] [place] [address] Aug, Bipolar 1 disorder, mixed F3 1.60 [place] [address] [place] [id number] [address] [place] [address] Aug, Allergic rhinitis J30.9 ; Ce rvicalgia M54.2 and Low back pain M54.5 [facility] [address] [place] [address] Aug, Major depressive disorder, r ecurrent episode, moderate F33.1 [facility] [address] [place] [address] Aug, Sinusitis J32.9 and Tobacco 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 [place] [address] [address] Aug, [place] [address] [address] Aug, Depressive disorder, not els ewhere classified F32.9 ; Hormone replacement therapy Z79.[address] scan, head R93.0 [place] [address] [place] [id number] [address] [place] [address] Aug, Major depressive disorder, r ecurrent episode, moderate F33.1 [place] [address] [place] [address] Jul, Major depressive disorder, r ecurrent episode, moderate F33.1 [place] [address] [place] [address] Jul, Abdominal pain R10.9 and Hyp ertension I10 [place] [address] [place] [id number] [address] [place] [address] Jul, [place] [address] [address] Jul, Major depressive disorder, r ecurrent episode, moderate F33.1 [facility] [address] [id number] [address] [place] [address] Jul, [facility] [address] [facility] [id number] [address] [place] [address] Jul, [facility] [address] [place] [id number] [place] [address] Jun, [facility] [address] [place] [id number] [address] [place] [address] Jun, Depressive disorder, not els ewhere classified F32.9 [place] [address] [facility] [id number] [address] [place] [address] Jun, [place] [address] [place] [id number] [place] [address] Jun, [place] [address] [place] [id number] [place] [address] Jun, Arthralgia of hip, unspecifi ed laterality M25.559 ; Bruising, spontaneous R23.3 and Night sweats R61 [place] [address] [place] [id number] [place] [address] Jun, [place] [address] [place] [id number] [place] [address] Jun, [place] [address] [place] [id number] [place] [address] May, [place] [address] [place] [id number] [place] [address] May, Myalgia M79.1 and Screening, lipid Z13.220 [place] [address] [place] [id number] [place] [address] 10 Apr, 2015 Status post cervical spinal fusion Z98.1 ; Fibromyalgia M79.7 and Unsteady gait R26.81 [place] [address] [place] [id number] [address] [place] [address] Nov, [facility] [address] [id number] [address] [place] [address] Nov, [facility] [address] [id number] [address] [place] [address] October, [facility] [address] [id number] [address] [place] [address] October, [facility] [address] [id number] [address] [place] [address] October, [facility] [address] [id number] [address] [place] [address] October, [facility] [address] [id number] [address] [place] [address] October, [facility] [address] [id number] [address] [place] [address] October, Dysuria 788.1 ; Nausea 787.0 2 and Urinary tract infection 599.0 [facility] [address] [id number] [address] [place] [address] Sep, [facility] [address] [id number] [address] [place] [address] Sep, [facility] [address] [id number] [address] [place] [address] Aug, [facility] [address] [id number] [address] [place] [address] Aug, [facility] [address] [id number] [address] [place] [address] Aug, [facility] [address] [id number] [address] [place] [address] Aug, [facility] [address] [id number] [address] [place] [address] Aug, [facility] [address] [id number] [facility] [place] [place] [address] 19 Aug, 2014 [facility] [address] [id number] [address] [place] [address], [place] [address] 19 Aug, 2014 [facility] [address] [id number] [address] [place] [address], [place] [address] 19 Aug, 2014 [facility] [address] [id number] [address] [place] [address], [place] [address] 19 Aug, 2014 [facility] [address] [id number] [address] [place] [address], [place] [address] 18 Aug, 2014 [facility] [address] [id number] [address] [place] [address], [place] [address] 18 Aug, 2014 [facility] [address] [id number] [address] [place] [address], [place] [address] 13 Aug, 2014 [facility] [address] [id number] [address] [place] [address], [place] [address] 13 Aug, 2014 [facility] [address] [id number] [address] [place] [address], [place] [address] 11 Aug, 2014 [facility] [address] [id number] [address] [place] [address], [place] [address] 11 Aug, 2014 [facility] [address] [id number] [address] [place] [address], [place] [address] 06 Aug, 2014 [facility] [address] [id number] [address] [place] [address], [place] [address] 06 Aug, 2014 [facility] [address] [id number] [address] [place] [address], [place] [address] 05 Aug, 2014 [facility] [address] [id number] [address] [place] [address], [place] [address] 05 Aug, 2014 [facility] [address] [id number] [address] [place] [address], [place] [address] 04 Aug, 2014 [facility] [address] [id number] [address] [place] [address], [place] [address] Aug, [facility] [address] [id number] [address] [place] [address], [place] [address] Aug, [facility] [address] [id number] [address] [place] [address], [place] [address] Jul, 2014 [facility] [address] [id number] [address] [place] [address], [place] [address] Jul, 2014 [facility] [address] [id number] [address] [place] [address], [place] [address] Jul, 2014 [facility] [address] [id number] [address] [place] [address], [place] [address] Jul, 2014 [facility] [address] [id number] [address] [place] [address], [place] [address] Jul, 2014 [facility] [address] [id number] [address] [place] [address], [place] [address] Jul, 2014 [facility] [address] [id number] [address] [place] [address], [place] [address] Jul, 2014 [facility] [address] [id number] [address] [place] [address], [place] [address] Jul, 2014 [facility] [address] [id number] [address] [place] [address], [place] [address] Jul, 2014 [facility] [address] [id number] [address] [place] [address], [place] [address] Jul, 2014 [facility] [address] [id number] [address] [place] [address], [place] [address] Jul, 2014 [facility] [address] [id number] [address] [place] [address], [place] [address] Jul, 2014 [facility] [address] [id number] [address] [place] [address], [place] [address] Jul, 2014 [facility] [address] [id number] [address] [place] [address], [place] [address] Jul, 2014 [facility] [address] [id number] [address] [place] [address], [place] [address] Jun, [facility] [address] [id number] [address] [place] [address], [place] [address] Jun, [facility] [address] [id number] [address] [place] [address], [place] [address] Jun, [facility] [address] [id number] [address] [place] [address], [place] [address] Jun, [facility] [address] [id number] [address] [place] [address], [place] [address] Jun, [facility] [address] [id number] [address] [place] [address], [place] [address] Jun, [facility] [address] [id number] [address] [place] [address], [place] [address] May, [facility] [address] [id number] [address] [place] [address], [place] [address] May, [facility] [address] [id number] [address] [place] [address], [place] [address] May, [facility] [address] [id number] [address] [place] [address], [place] [address] May, [facility] [address] [id number] [address] [place] [address], [place] [address] May, [facility] [address] [id number] [address] [place] [address], [place] [address] May, [facility] [address] [id number] [address] [place] [address], [place] [address] Apr, [facility] [address] [id number] [address] [place] [address], [place] [address] Apr, [facility] [address] [id number] [address] [place] [address], [place] [address] 13 Apr, 2014 [facility] [address] [id number] [address] [place] [address], [place] [address] Apr, [facility] [address] [id number] [address] [place] [address], [place] [address] Apr, [facility] [address] [id number] [address] [place] [address], [place] [address] Apr, [facility] [address] [id number] [address] [place] [address], [place] [address] Mar, [facility] [address] [id number] [address] [place] [address], [place] [address] Mar, [facility] [address] [id number] [address] [place] [address], [place] [address] Mar, [facility] [address] [id number] [address] [place] [address], [place] [address] Mar, [facility] [address] [id number] [address] [place] [address], [place] [address] Mar, [facility] [address] [id number] [address] [place] [address] Mar, [facility] [address] [id number] [address] [place] [address], [place] [address] Mar, [facility] [address] [id number] [address] [place] [address] Mar, [facility] [address] [id number] [address] [place] [address] Mar, [facility] [address] [id number] [address] [place] [address] Mar, [facility] [address] [id number] [address] [place] [address], [place] [address] Mar, [facility] [address] [id number] [address] [place] [address] Mar, [facility] [address] [id number] [address] [place] [address] Feb, [facility] [address] [id number] [facility] [place] [place] [address] 29 Feb, 2014 [facility] [address] [id number] [address] [place] [address], [place] [address] 29 Feb, 2014 [facility] [address] [id number] [address] [place] [address], [place] [address] Feb, [facility] [address] [id number] [address] [place] [address], [place] [address] Feb, [facility] [address] [id number] [address] [place] [address], [place] [address] Feb, [facility] [address] [id number] [address] [place] [address], [place] [address] Feb, [facility] [address] [id number] [address] [place] [address], [place] [address] Jan, [facility] [address] [id number] [address] [place] [address], [place] [address] Jan, [facility] [address] [id number] [address] [place] [address], [place] [address] Jan, [facility] [address] [id number] [address] [place] [address], [place] [address] Dec, [facility] [address] [id number] [address] [place] [address], [place] [address] Dec, [facility] [address] [id number] [address] [place] [address], [place] [address] Dec, [facility] [address] [id number] [address] [place] [address], [place] [address] Dec, [facility] [address] [id number] [address] [place] [address], [place] [address] Sep, [facility] [address] [id number] [address] [place] [address], [place] [address] Sep, [facility] [address] [id number] [address] [place] [address], [place] [address] Sep, [facility] [address] [id number] [address] [place] [address], [place] [address] Sep, [facility] [address] [id number] [address] [place] [address], [place] [address] Sep, [facility] [address] [id number] [address] [place] [address], [place] [address] Sep, [facility] [address] [id number] [address] [place] [address], [place] [address] Sep, [facility] [address] [id number] [address] [place] [address], [place] [address] Sep, [facility] [address] [id number] [address] [place] [address], [place] [address] Aug, [facility] [address] [id number] [address] [place] [address], [place] [address] Aug, [facility] [address] [id number] [address] [place] [address], [place] [address] May, [facility] [address] [id number] [address] [place] [address], [place] [address] May, [facility] [address] [id number] [address] [place] [address], [place] [id number] Apr, [facility] [address] [id number] [address] [place] [address], [place] [id number] Apr, [facility] [address] [id number] [address] [place] [address], [place] [id number] Apr, [facility] [address] [id number] [address] [place] [address], [place] [id number] Apr, [facility] [address] [id number] [address] [place] [address], [place] [id number] Apr, [facility] [address] [id number] [address] [place] [address], [place] [address] Apr, [facility] [address] [id number] [address] [place] [address], [place] [id number] 18 May, 2012 [facility] [address] [id number] [address] [place] [address], [place] [id number] 18 May, 2012 [facility] [address] [id number] [address] [place] [address], [place] [id number] 15 May, 2012 [facility] [address] [id number] [address] [place] [address], [place] [id number] 15 May, 2012 [facility] [address] [id number] [address] [place] [address], [place] [id number] 13 May, 2012 [facility] [address] [id number] [address] [place] [address], [place] [id number] 13 May, 2012 [facility] [address] [id number] [address] [place] [address], [place] [id number] 13 Apr, 2012 [facility] [address] [id number] [address] [place] [address], [place] [id number] 13 Apr, 2012 [facility] [address] [id number] [address] [place] [address], [place] [id number] 08 Apr, 2012 [facility] [address] [id number] [address] [place] [address], [place] [id number] 08 Apr, 2012 [facility] [address] [id number] [address] [place] [address], [place] [id number] 08 Apr, 2012 [facility] [address] [id number] [address] [place] [address], [place] [address] Apr, [facility] [address] [id number] [address] [place] [address], [place] [id number] Apr, [facility] [address] [id number] [address] [place] [address], [place] [id number] Apr, [facility] [address] [id number] [address] [place] [address], [place] [address] Apr, [facility] [address] [id number] [address] [place] [address], [place] [id number] Apr, [facility] [address] [id number] [address] [place] [address], [place] [id number] Mar, [facility] [address] [id number] [address] [place] [address], [place] [id number] Mar, [facility] [address] [id number] [address] [place] [address], [place] [id number] Mar, [facility] [address] [id number] [address] [place] [address], [place] [id number] Mar, [facility] [address] [id number] [address] [place] [address], [place] [id number] Mar, [facility] [address] [id number] [address] [place] [address], [place] [id number] Mar, [facility] [address] [id number] [address] [place] [address], [place] [id number] Mar, [facility] [address] [id number] [address] [place] [address], [place] [id number] Mar, [facility] [address] [id number] [address] [place] [address], [place] [id number] Mar, [facility] [address] [id number] [address] [place] [address], [place] [id number] 25 Feb, 2012 [facility] [address] [id number] [address] [place] [address], [place] [id number] 16 Feb, 2012 [facility] [address] [id number] [address] [place] [address], [place] [id number] 11 Feb, 2012 [facility] [address] [id number] [address] [place] [address], [place] [id number] Jan, [facility] [address] [id number] [address] [place] [address], [place] [id number] Jan, [facility] [address] [id number] [address] [place] [address], [place] [address] Jan, [facility] [address] [id number] [address] [place] [address], [place] [id number] Jan, [facility] [address] [id number] [facility] [place] [place] [address] Jan, [facility] [address] [id number] [address] [place] [address], [place] [id number] Jan, [facility] [address] [id number] [address] [place] [address], [place] [id number] 16 Jan, 2012 [facility] [address] [id number] [address] [place] [address], [place] [address] Jan, [facility] [address] [id number] [address] [place] [address], [place] [address] Jan, [facility] [address] [id number] [address] [place] [address], [place] [address] Jan, [facility] [address] [id number] [address] [place] [address], [place] [id number] Dec, [facility] [address] [id number] [address] [place] [address], [place] [address] Dec, [facility] [address] [id number] [address] [place] [address], [place] [address] Dec, [facility] [address] [id number] [address] [place] [address], [place] [address] Dec, [facility] [address] [id number] [address] [place] [address], [place] [address] Nov, [facility] [address] [id number] [address] [place] [address], [place] [address] Nov, [facility] [address] [id number] [address] [place] [address], [place] [address] Nov, [facility] [address] [id number] [address] [place] [address], [place] [address] October, [facility] [address] [id number] [address] [place] [address], [place] [id number] October, [facility] [address] [id number] [address] [place] [id number] October, [facility] [address] [id number] [address] [place] [id number] October, [facility] [address] [id number] [address] [place] [id number] October, [facility] [address] [id number] [address] [place] [id number] October, [facility] [address] [id number] [address] [place] [id number] Aug, [facility] [address] [id number] [address] [place] [id number] Mar, [facility] [address] [id number] [address] [place] [id number] Nov, [facility] [address] [id number] [address] [place] [id number] May, [facility] [address] [id number] [address] [place] [id number] May, [facility] [address] [id number] [address] [place] [id number] Apr, [facility] [address] [id number] [address] [place] [id number] Mar, [facility] [address] [id number] [address] [place] [phone] Mar, IMMUNIZATIONS No Known Immunizations SOCIAL HISTORY Never Assessed REASON FOR VISIT Follow Up Phone Call PLAN OF CARE VITAL SIGNS MEDICATIONS Unknown Medications RESULTS No Results PROCEDURES No Known procedures INSTRUCTIONS MEDICATIONS ADMINISTERED No Known Medications MEDICAL (GENERAL) HISTORY Type Description Date Medical History Severe spinal stenosis throu cervical spine CT and MRI done 10/2014 at [facility] with Neurosurgery at Medical History Migraine [...]
--- OUTSIDE RECORDS SUMMARY | 2019-06-19 05:41 | XMS REPORT ---
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 Name Role Phone JOHN MORTON Unavailable PROBLEMS Type Condition ICD9-CM Code FYR39-HL Code Onset Dates Condition S tatus SNOMED Code Problem Hormone replacement therapy Z79.890 Ac tive 590858012 Problem Abnormal CT scan, head R93.0 Active 322920759 Problem Sensorineural hearing loss (SNHL) of both ears H90 .3 Active 897006083 Problem History of colon polyps Z86.010 Active 233683437 Problem Bruising, spontaneous R23.3 Active 522324980 Problem Generalized anxiety disorder F41.1 A ctive 80233821 Problem Arthralgia of hip, unspecified laterality M25.559 Active 58433689 Problem Hematuria, unspecified type R31.9 Ac tive 64769198 Problem Imbalance R26.89 Active 141112705 Problem Hammer toe of right foot M20.41 Activ e 643356175 Problem Plantar wart of right foot B07.0 Act mitchell [id number] Problem Sciatica of left side M54.32 Active 17434284 Problem Hyperlipidemia, unspecified hyperlipidemia type E7 8.5 Active 40806760 Problem Hypertension I10 Active 9323911 3 Problem Night sweats R61 Active 8626674 0 Problem Fibromyalgia M79.7 Active 9849780 7 Problem Major depressive disorder, recurrent episode, moderate F33.1 Active 670257599 Problem Acute left-sided low back pain with left-sided sciatica M54.42 Active 355549281 Problem Bladder spasm N32.89 Active 272516 006 Problem Gastritis without bleeding, unspecified chronicity, unspecified gastritis type K29.70 Active 963595401 Problem Bipolar 1 disorder, mixed F31.60 Acti ve 43146554 Problem Grief F43.20 Active 01055895 Problem Other chronic pain G89.29 Active 8 6926714 Problem Allergic rhinitis J30.9 Active 61 240307 Problem Hot flashes due to menopause N95.1 A ctive 616079591 Problem Ataxia R27.0 Active 61619060 Problem Hearing loss, unspecified laterality H91.90 Active 49964214 ALLERGIES No Information ENCOUNTERS Encounter Location Date Diagnosis [facility] [address] [facility] [id number] [address] [place] [id number] Jan, [facility] [address] [facility] [id number] [address] [place] [phone] Jan, [facility] [address] [facility] [id number] [address] [place] [phone] Jan, [facility] [address] [facility] [id number] [address] [place] [phone] Dec, [facility] [address] [place] [id number] [address] [place] [phone] Dec, [facility] [address] [facility] [id number] [address] [place] [phone] Dec, Bipolar 1 disorder, mixed F3 1.60 [facility] [address] [facility] [id number] [address] [place] [id number] Dec, Bipolar 1 disorder, mixed F3 1.60 [facility] [address] [facility] [id number] [address] [place] [id number] Nov, Bipolar 1 disorder, mixed F3 1.60 [facility] [address] [facility] [id number] [address] [place] [id number] Nov, Bipolar 1 disorder, mixed F3 1.60 [facility] [address] [facility] [id number] [address] [place] [id number] Nov, Bipolar 1 disorder, mixed F3 1.60 [facility] [address] [facility] [id number] [address] [place] [id number] Nov, Allergic rhinitis J30.9 [facility] [address] [facility] [id number] [address] [place] [id number] Nov, Allergic rhinitis J30.9 [facility] [address] [facility] [id number] [address] [place] [id number] Nov, [facility] [address] [facility] [id number] [address] [place] [id number] Nov, Bipolar 1 disorder, mixed F3 1.60 [facility] [address] [place] [id number] [place] [address] Nov, Fibromyalgia M79.7 and Aller gic rhinitis J30.9 [facility] [address] [facility] [id number] [address] [place] [id number] October, Bipolar 1 disorder, mixed F3 1.60 [facility] [address] [place] [id number] [place] [address] October, Acute nasopharyngitis J00 [facility] [address] [address] October, Bitten or stung by nonvenomo us insect and other nonvenomous arthropods, initial encounter W57.XXXA and Insect bite (nonvenomous) of abdominal wall, initial encounter S30.861A [place] [address] [address] October, Insect bite (nonvenomous) of abdominal wall, initial encounter S30.861A ; Bitten or stung by nonvenomous insect and other nonvenomous arthropods, initial encounter W57.XXXA ; Allergic rhinitis J30.9 and Low back pain M54.5 [facility] [address] [place] [id number] [address] [place] [id number] October, Bipolar 1 disorder, mixed F3 1.60 [facility] [address] [place] [id number] [address] [place] [id number] October, [facility] [address] [place] [id number] [place] [address] October, [facility] [address] [place] [address] October, Bipolar 1 disorder, mixed F3 1.60 [facility] [address] [facility] [id number] [address] [place] [id number] Sep, Bipolar 1 disorder, mixed F3 1.60 [facility] [address] [facility] [id number] [address] [place] [address] Sep, Other chronic pain G89.29 [facility] [address] [facility] [id number] [address] [place] [id number] Sep, [facility] [address] [facility] [id number] [address] [place] [id number] Sep, Bipolar 1 disorder, mixed F3 1.60 [facility] [address] [place] [id number] [address] [place] [id number] Sep, Allergic rhinitis J30.9 and Sciatica of left side M54.32 [facility] [address] [place] [id number] [address] [place] [id number] Sep, Bipolar 1 disorder, mixed F3 1.60 [facility] [address] [place] [id number] [address] [place] [id number] Sep, Bipolar 1 disorder, mixed F3 1.60 and Generalized anxiety disorder F41.1 [facility] [address] [place] [id number] [address] [place] [id number] Aug, [facility] [address] [facility] [id number] [address] [place] [id number] Aug, Bipolar 1 disorder, mixed F3 1.60 [facility] [address] [facility] [id number] [address] [place] [id number] Aug, Bipolar 1 disorder, mixed F3 1.60 [facility] [address] [place] [id number] [address] [place] [id number] Aug, [facility] [address] [place] [id number] [address] [place] [id number] Aug, Generalized anxiety disorder F41.1 [facility] [address] [facility] [id number] [address] [place] [id number] Aug, Bipolar 1 disorder, mixed F3 1.60 [facility] [address] [facility] [id number] [address] [place] [id number] Aug, Plantar wart of right foot B 07.0 [facility] [address] [facility] [id number] [address] [place] [id number] Aug, Bipolar 1 disorder, mixed F3 1.60 [facility] [address] [facility] [id number] [address] [place] [id number] Jul, Bipolar 1 disorder, mixed F3 1.60 [facility] [address] [facility] [id number] [address] [place] [id number] Jul, [facility] [address] [facility] [id number] [address] [place] [id number] Jul, Bipolar 1 disorder, mixed F3 1.60 [facility] [address] [facility] [id number] [address] [place] [id number] Jul, Generalized anxiety disorder F41.1 [facility] [address] [facility] [id number] [address] [place] [id number] Jul, Bipolar 1 disorder, mixed F3 1.60 [facility] [address] [facility] [id number] [address] [place] [id number] Jul, Acute left-sided low back pa in with left-sided sciatica M54.42 [facility] [address] [facility] [id number] [address] [place] [phone] Jul, Coccydynia M53.3 [facility] [address] [facility] [id number] [address] [place] [id number] Jun, Bipolar 1 disorder, mixed F3 1.60 [facility] [address] [facility] [id number] [address] [place] [id number] Jun, Acute nasopharyngitis J00 [place] [address] [address] Jun, Bipolar 1 disorder, mixed F3 1.60 [place] [address] [address] Jun, Fibromyalgia M79.7 [place] [address] [address] Jun, Bipolar 1 disorder, mixed F3 1.60 [place] [address] [address] Jun, Fibromyalgia M79.7 and Bipol ar 1 disorder, mixed F31.60 [place] [address] [address] May, Bipolar 1 disorder, mixed F3 1.60 ; Generalized anxiety disorder F41.1 and Other roasterman (current) drug therapy Z79.899 [place] [address] [address] May, Bipolar 1 disorder, mixed F3 1.60 [facility] [address] [address] 14 May, 2017 Cough R05 and Body aches R52 [facility] [address] [address] 10 May, 2017 Bladder spasm N32.89 and Acu te cystitis without hematuria N30.00 [place] [address] [address] 07 May, 2017 Bipolar 1 disorder, mixed F3 1.60 [place] [address] [address] Apr, [place] [address] [address] Apr, Major depressive disorder, r ecurrent episode, moderate F33.1 and Encounter for immunization Z23 [place] [address] [address] Apr, Bipolar 1 disorder, mixed F3 1.60 [facility] [address] [place] [address] Apr, Bipolar 1 disorder, mixed F3 1.60 [facility] [address] [address] 16 Apr, 2017 Bipolar 1 disorder, mixed F3 1.60 [facility] [address] [address] 13 Apr, 2017 Yeast vaginitis B37.3 [facility] [address] 09 Apr, 2017 Bipolar 1 disorder, mixed F3 1.60 [facility] [address] [address] 07 Apr, 2017 Cellulitis L03.[address] for immunization Z23 [facility] [address] [address] Apr, Bipolar 1 disorder, mixed F3 1.60 [facility] [address] [address] Mar, Bipolar 1 disorder, mixed F3 1.60 [facility] [address] [address] Mar, Bipolar 1 disorder, mixed F3 1.60 [facility] [address] [place] [address] Mar, Imbalance R26.89 and Encount er for immunization Z23 [facility] [address] [place] [address] Mar, Generalized anxiety disorder F41.1 [facility] [address] [address] Mar, Bipolar 1 disorder, mixed F3 1.60 [facility] [address] [place] [address] Mar, Generalized anxiety disorder F41.1 [place] [address] [address] Mar, Bipolar 1 disorder, mixed F3 1.60 [facility] [address] [place] [id number] [place] [address] Mar, Bipolar 1 disorder, mixed F3 1.60 [place] [address] [address] Feb, Bipolar 1 disorder, mixed F3 1.60 [place] [address] [address] Feb, Bipolar 1 disorder, mixed F3 1.60 and Generalized anxiety disorder F41.1 [place] [address] [address] Feb, Gastritis without bleeding, unspecified chronicity, unspecified gastritis type K29.70 ; Hammer toe of right foot M20.41 and Other viral warts B07.8 [place] [address] [address] Feb, Bipolar 1 disorder, mixed F3 1.60 [place] [address] [place] [id number] [address] [place] [address] Feb, Bipolar 1 disorder, mixed F3 1.60 [place] [address] [place] [id number] [address] [place] [id number] Feb, Bipolar 1 disorder, mixed F3 1.60 [place] [address] [place] [id number] [address] [place] [phone] Jan, Encounter for screening mamm ogram for breast cancer Z12.31 ; Other viral warts B07.8 and Allergic rhinitis J30.9 [place] [address] [place] [id number] [place] [address] Jan, Bipolar 1 disorder, mixed F3 1.60 [place] [address] [place] [id number] [address] [place] [id number] Jan, Bipolar 1 disorder, mixed F3 1.60 [facility] [address] [facility] [id number] [address] [place] [id number] Jan, [facility] [address] [facility] [id number] [address] [place] [id number] Jan, Bipolar 1 disorder, mixed F3 1.60 [place] [address] [facility] [id number] [address] [place] [id number] Jan, Bipolar 1 disorder, mixed F3 1.60 [place] [address] [place] [id number] [address] [place] [id number] Jan, Allergic rhinitis J30.9 ; He maturia R31.9 and Colon cancer screening Z12.11 [place] [address] [place] [id number] [place] [id number] Dec, Bipolar 1 disorder, mixed F3 1.60 [place] [address] [place] [id number] [place] [id number] Dec, Bipolar 1 disorder, mixed F3 1.60 ; Generalized anxiety disorder F41.1 and Other roasterman (current) drug therapy Z79.899 [place] [address] [place] [id number] [address] [place] [address] Dec, Bipolar 1 disorder, mixed F3 1.60 [place] [address] [place] [id number] [address] [place] [address] Dec, Bipolar 1 disorder, mixed F3 1.60 [place] [address] [place] [id number] [place] [id number] Dec, Bipolar 1 disorder, mixed F3 1.60 [place] [address] [place] [id number] [place] [id number] Dec, Low back pain M54.5 and Recu rrent urinary tract infection N39.0 [place] [address] [place] [id number] [place] [id number] Nov, Bipolar 1 disorder, mixed F3 1.60 [facility] [address] [facility] [id number] [address] [place] [id number] Nov, Bipolar 1 disorder, mixed F3 1.60 [facility] [address] [facility] [id number] [address] [place] [address] Nov, Bipolar 1 disorder, mixed F3 1.60 [facility] [address] [facility] [id number] [address] [place] [address] Nov, Bipolar 1 disorder, mixed F3 1.60 [facility] [address] [facility] [id number] [address] [place] [address] Nov, [facility] [address] [place] [id number] [address] [place] [address] Nov, Anesthesia of skin R20.0 ; F requent UTI N39.0 ; Tobacco abuse Z72.0 and Colon cancer screening Z12.11 [facility] [address] [place] [id number] [address] [place] [address] Nov, Bipolar 1 disorder, mixed F3 1.60 [facility] [address] [place] [id number] [address] [place] [address] October, Bipolar 1 disorder, mixed F3 1.60 [facility] [address] [place] [id number] [place] [id number] October, Bipolar 1 disorder, mixed F3 1.60 [facility] [address] [facility] [id number] [address] [place] [address] October, Bipolar 1 disorder, mixed F3 1.60 [facility] [address] [facility] [id number] [address] [place] [address] October, Bipolar 1 disorder, mixed F3 1.60 [facility] [address] [place] [id number] [address] [place] [address] October, Bipolar 1 disorder, mixed F3 1.60 [facility] [address] [place] [address] October, Cervicalgia M54.2 and Bipola r 1 disorder, mixed F31.60 [place] [address] [place] [address] October, Hypertension I10 ; Hyperlipi demia, unspecified hyperlipidemia type E78.5 and Family history of thyroid disease Z83.49 [place] [address] [place] [address] October, [place] [address] [place] [address] 08 Oct, 2016 Hypertension I10 ; Hyperlipi demia, unspecified hyperlipidemia type E78.5 and Family history of thyroid problem Z83.49 [place] [address] [place] [address] October, Bipolar 1 disorder, mixed F3 1.60 [place] [address] [address] Sep, Bipolar 1 disorder, mixed F3 1.60 [place] [address] [address] Sep, Bipolar 1 disorder, mixed F3 1.60 [place] [address] [address] Sep, Bipolar 1 disorder, mixed F3 1.60 [place] [address] [address] Sep, History of colon polyps Z86. 010 and Hematochezia K92.1 [place] [address] [address] Sep, Major depressive disorder, r ecurrent episode, moderate F33.1 [place] [address] [address] Sep, Bipolar 1 disorder, mixed F3 1.60 [place] [address] [place] [id number] Aug, Hot flashes due to menopause N95.1 [facility] [address] [place] [address] Aug, Bipolar 1 disorder, mixed F3 1.60 [facility] [address] [place] [address] Aug, [facility] [address] [place] [address] Aug, Bipolar 1 disorder, mixed F3 1.60 [place] [address] Aug, Bipolar 1 disorder, mixed F3 1.60 [place] [address] [place] [address] Aug, Hot flashes due to menopause N95.1 ; Cervicalgia M54.2 and Ataxia R27.0 [place] [address] [address] Jul, Bipolar 1 disorder, mixed F3 1.60 [place] [address] [place] [address] Jul, Bipolar 1 disorder, mixed F3 1.60 [place] [address] [address] Jul, Bipolar 1 disorder, mixed F3 1.60 [place] [address] [address] Jul, Bipolar 1 disorder, mixed F3 1.60 [place] [address] [place] [address] Jul, Bipolar 1 disorder, mixed F3 1.60 [place] [address] [address] Jul, Cervicalgia M54.2 ; Tremor R 25.1 ; Hearing abnormally acute, unspecified laterality H93.239 ; Alopecia L65.9 ; Encounter for immunization Z23 and Family history of thyroid disease Z83.49 [facility] [address] Jul, Bipolar 1 disorder, mixed F3 1.60 [place] [address] [place] [address] Jun, [place] [address] [place] [address] Jun, Hearing disorder, unspecifie d laterality H93.299 [place] [address] Jun, Bipolar 1 disorder, mixed F3 1.60 [place] [address] [place] [address] Jun, Bipolar 1 disorder, mixed F3 1.60 [place] [address] [place] [address] Jun, Allergic rhinitis J30.9 [place] [address] [place] [address] Jun, Bipolar 1 disorder, mixed F3 1.60 [place] [address] [place] [id number] Jun, Bipolar 1 disorder, mixed F3 1.60 [place] [address] [place] [address] Jun, Allergic rhinitis J30.9 [facility] [address] [place] [id number] [address] [place] [address] Jun, Allergic rhinitis J30.9 [facility] [address] [place] [id number] [address] [place], [place] [address] Jun, Bipolar 1 disorder, mixed F3 1.60 [facility] [address] [place] [id number] [address] [place] [address] May, Bipolar 1 disorder, mixed F3 1.60 [facility] [address] [facility] [id number] [address] [place] [id number] May, Bipolar 1 disorder, mixed F3 1.60 [facility] [address] [facility] [id number] [address] [place] [address] May, [facility] [address] [facility] [id number] [address] [place] [address] May, Bipolar 1 disorder, mixed F3 1.60 [facility] [address] [facility] [id number] [address] [place] [id number] May, Bipolar 1 disorder, mixed F3 1.60 [facility] [address] [facility] [id number] [address] [place] [id number] May, [facility] [address] [place] [id number] [address] [place] [address] May, [facility] [address] [facility] [id number] [address] [place] [address] May, [facility] [address] [place] [id number] [address] [place] [address] May, Abdominal pain, unspecified location R10.9 [facility] [address] [facility] [id number] [address] [place] [id number] May, [facility] [address] [facility] [id number] [address] [place] [address] Apr, Hematuria R31.9 ; Ataxia R27 .0 and Hearing loss, unspecified laterality H91.90 [facility] [address] [facility] [id number] [address] [place] [address] Apr, Bipolar 1 disorder, mixed F3 1.60 [facility] [address] [facility] [id number] [address] [place] [address] Apr, Acute effusion of both middl e ears H65.193 [facility] [address] [facility] [id number] [address] [place] [address] Apr, Hematuria R31.9 and Pyelonep hritis N12 [facility] [address] [facility] [id number] [address] [place] [phone] Apr, [facility] [address] [facility] [id number] [address] [place] [phone] Mar, Bipolar 1 disorder, mixed F3 1.60 [place] [address] [place] [id number] [address] [place] [phone] Mar, [place] [address] [place] [id number] [place] [phone] Mar, Bipolar 1 disorder, mixed F3 1.60 [place] [address] [place] [id number] [place] [phone] Mar, Bipolar 1 disorder, mixed F3 1.60 [place] [address] [place] [id number] [address] [place] [phone] Mar, Encounter for immunization Z 23 and Gastritis without bleeding, unspecified chronicity, unspecified gastritis type K29.70 [place] [address] [place] [id number] [address] [place] [phone] Mar, Bipolar 1 disorder, mixed F3 1.60 and Grief F43.20 [place] [address] [place] [id number] [address] [place] [phone] Mar, Gastritis without bleeding, unspecified chronicity, unspecified gastritis type K29.70 [place] [address] [place] [id number] [address] [place] [id number] Mar, Bipolar 1 disorder, mixed F3 1.60 [place] [address] [place] [id number] [address] [place] [id number] Mar, Gastritis without bleeding, unspecified chronicity, unspecified gastritis type K29.70 [place] [address] [facility] [id number] [address] [place] [phone] Mar, [place] [address] [place] [id number] [address] [place] [id number] Feb, Bipolar 1 disorder, mixed F3 1.60 [facility] [address] [place] [id number] [address] [place] [phone] Feb, Bipolar 1 disorder, mixed F3 1.60 and Grief F43.20 [facility] [address] [place] [id number] [address] [place], [place] [id number] 22 Feb, 2016 Gastritis without bleeding, unspecified chronicity, unspecified gastritis type K29.70 [place] [address] [address] [place] [id number] [address] [place], [place] [id number] 14 Feb, 2016 Bipolar 1 disorder, mixed F3 1.60 [facility] [address] [place] [address] 09 Feb, 2016 Gastroesophageal reflux dise ase, esophagitis presence not specified K21.9 [place] [address] [address] Jan, Bipolar 1 disorder, mixed F3 1.60 [place] [address] [address] Jan, Bipolar 1 disorder, mixed F3 1.60 and Unsteady gait R26.81 [place] [address] [place] [id number] Jan, Bipolar 1 disorder, mixed F3 1.60 [place] [address] [place] [id number] [address] [place] [phone] Jan, Bipolar 1 disorder, mixed F3 1.60 and Other roasterman (current) drug therapy Z79.899 [place] [address] [address] Jan, Bipolar 1 disorder, mixed F3 1.60 [place] [address] [place] [id number] [address] [place], [place] [address] Jan, Bipolar 1 disorder, mixed F3 1.60 [place] [address] [place] [id number] Jan, Bipolar 1 disorder, mixed F3 1.60 ; Grief F43.20 and Other chcf (current) drug therapy Z79.899 [place] [address] [place] [id number] [address] [place] [phone] Jan, Bipolar 1 disorder, mixed F3 1.60 [place] [address] [place] [id number] [address] [place] [id number] Dec, [place] [address] [place] [id number] [address] [place] [id number] Dec, Bipolar 1 disorder, mixed F3 1.60 ; Vitamin D deficiency, unspecified E55.9 ; H/O allergic rhinitis Z87.09 ; Other chronic pain G89.29 and Dorsalgia, unspecified M54.9 [place] [address] [place] [id number] [address] [place] [id number] Dec, [place] [address] [place] [id number] [address] [place] [id number] Dec, Bipolar 1 disorder, mixed F3 1.60 [place] [address] [place] [id number] [address] [place] [id number] Dec, Major depressive disorder, r ecurrent episode, moderate F33.1 [place] [address] [place] [id number] [address] [place] [id number] Dec, Major depressive disorder, r ecurrent episode, moderate F33.1 [place] [address] [facility] [id number] [address] [place] [phone] Nov, [place] [address] [place] [id number] [address] [place] [phone] Nov, Bipolar 1 disorder, mixed F3 1.60 [place] [address] [place] [id number] [address] [place] [id number] Nov, Major depressive disorder, r ecurrent episode, moderate F33.1 [place] [address] [place] [id number] [address] [place] [id number] Nov, Cervicalgia M54.2 ; Arthralg ia of hip, unspecified laterality M25.559 ; Allergic rhinitis J30.9 and Hormone replacement therapy Z79.890 [facility] [address] [facility] [id number] [address] [place] [id number] 13 Nov, 2015 Other seasonal allergic rhin itis J30.2 [facility] [address] [facility] [id number] [address] [place] [phone] October, Major depressive disorder, r ecurrent episode, moderate F33.1 [facility] [address] [facility] [id number] [address] [place] [phone] October, Major depressive disorder, r ecurrent episode, moderate F33.1 and Arthralgia of hip, unspecified laterality M25.559 [facility] [address] [facility] [id number] [address] [place] [id number] October, Grief F43.20 ; Hypertension I10 ; Hyperlipidemia, unspecified hyperlipidemia type E78.5 ; Other chronic pain G89.29 and Allergic rhinitis, unspecified allergic rhinitis type J30.9 [facility] [address] [facility] [id number] [address] [place] [id number] October, Major depressive disorder, r ecurrent episode, moderate F33.1 [place] [address] [facility] [id number] [address] [place] [phone] Sep, Major depressive disorder, r ecurrent episode, moderate F33.1 [facility] [address] [facility] [id number] [address] [place] [phone] Sep, [facility] [address] [facility] [id number] [address] [place] [phone] Sep, Major depressive disorder, r ecurrent episode, moderate F33.1 [facility] [address] [facility] [id number] [address] [place] [address] Sep, Grief F43.20 [place] [address] [place] [id number] [address] [place] [id number] Aug, Major depressive disorder, r ecurrent episode, moderate F33.1 [facility] [address] [place] [id number] [address] [place] [id number] Aug, Bipolar 1 disorder, mixed F3 1.60 [facility] [address] [facility] [id number] [address] [place] [phone] Aug, Allergic rhinitis J30.9 ; Ce rvicalgia M54.2 and Low back pain M54.5 [facility] [address] [place] [address] Aug, Major depressive disorder, r ecurrent episode, moderate F33.1 [facility] [address] [place] [id number] Aug, Sinusitis J32.9 and Tobacco 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 [place] [address] [place] [address] Aug, [place] [address] [address] Aug, Depressive disorder, not els ewhere classified F32.9 ; Hormone replacement therapy Z79.[address] scan, head R93.0 [place] [address] [place] [id number] [address] [place] [id number] Aug, Major depressive disorder, r ecurrent episode, moderate F33.1 [place] [address] [place] [id number] Jul, Major depressive disorder, r ecurrent episode, moderate F33.1 [place] [address] [place] [id number] [address] [place] [id number] Jul, Abdominal pain R10.9 and Hyp ertension I10 [place] [address] [place] [id number] [address] [place] [id number] Jul, [place] [address] [id number] Jul, Major depressive disorder, r ecurrent episode, moderate F33.1 [facility] [address] [id number] [address] [place] [id number] Jul, [facility] [address] [id number] [address] [place] [id number] Jul, [facility] [address] [id number] [address] [place] [id number] Jun, [facility] [address] [id number] [address] [place] [phone] Jun, Depressive disorder, not els ewhere classified F32.9 [facility] [address] [facility] [id number] [address] [place] [phone] Jun, [place] [address] [place] [id number] [address] [place] [id number] Jun, [place] [address] [place] [id number] [address] [place] [id number] Jun, Arthralgia of hip, unspecifi ed laterality M25.559 ; Bruising, spontaneous R23.3 and Night sweats R61 [facility] [address] [facility] [id number] [address] [place] [phone] Jun, [place] [address] [place] [id number] [address] [place] [id number] Jun, [facility] [address] [facility] [id number] [address] [place] [id number] May, [facility] [address] [place] [id number] [address] [place] [id number] May, Myalgia M79.1 and Screening, lipid Z13.220 [place] [address] [facility] [id number] [address] [place] [id number] 10 Apr, 2015 Status post cervical spinal fusion Z98.1 ; Fibromyalgia M79.7 and Unsteady gait R26.81 [place] [address] [place] [id number] [address] [place] [id number] Nov, [facility] [address] [id number] [address] [place] [id number] Nov, [facility] [address] [id number] [address] [place] [phone] October, [facility] [address] [id number] [address] [place] [id number] October, [facility] [address] [id number] [address] [place] [id number] October, [facility] [address] [id number] [address] [place] [phone] October, [facility] [address] [id number] [address] [place] [id number] October, [facility] [address] [id number] [address] [place] [id number] October, Dysuria 788.1 ; Nausea 787.0 2 and Urinary tract infection 599.0 [facility] [address] [id number] [address] [place] [phone] Sep, [facility] [address] [id number] [address] [place] [phone] Sep, [facility] [address] [id number] [address] [place] [phone] Aug, [facility] [address] [id number] [address] [place] [id number] Aug, [facility] [address] [id number] [address] [place] [phone] Aug, [facility] [address] [id number] [address] [place] [phone] Aug, [facility] [address] [id number] [address] [place] [phone] Aug, [facility] [address] [id number] [facility] [place] [address] 19 Aug, 2014 [facility] [address] [id number] [address] [place] [address], [place] [address] 19 Aug, 2014 [facility] [address] [id number] [address] [place] [address], [place] [address] 19 Aug, 2014 [facility] [address] [id number] [address] [place] [address], [place] [address] 19 Aug, 2014 [facility] [address] [id number] [address] [place] [address], [place] [address] 18 Aug, 2014 [facility] [address] [id number] [address] [place] [address], [place] [address] 18 Aug, 2014 [facility] [address] [id number] [address] [place] [address], [place] [address] 13 Aug, 2014 [facility] [address] [id number] [address] [place] [address], [place] [address] 13 Aug, 2014 [facility] [address] [id number] [address] [place] [address], [place] [address] 11 Aug, 2014 [facility] [address] [id number] [address] [place] [address], [place] [address] 11 Aug, 2014 [facility] [address] [id number] [address] [place] [address], [place] [address] 06 Aug, 2014 [facility] [address] [id number] [address] [place] [address], [place] [address] 06 Aug, 2014 [facility] [address] [id number] [address] [place] [address], [place] [address] 05 Aug, 2014 [facility] [address] [id number] [address] [place] [address], [place] [address] 05 Aug, 2014 [facility] [address] [id number] [address] [place] [address], [place] [address] 04 Aug, 2014 [facility] [address] [id number] [address] [place] [address], [place] [address] Aug, 2014 [facility] [address] [id number] [address] [place] [address], [place] [address] Aug, [facility] [address] [id number] [address] [place] [address], [place] [address] Jul, 2014 [facility] [address] [id number] [address] [place] [address], [place] [address] Jul, 2014 [facility] [address] [id number] [address] [place] [address], [place] [address] Jul, 2014 [facility] [address] [id number] [address] [place] [address], [place] [address] Jul, 2014 [facility] [address] [id number] [address] [place] [address], [place] [address] Jul, 2014 [facility] [address] [id number] [address] [place] [address], [place] [address] Jul, 2014 [facility] [address] [id number] [address] [place] [address], [place] [address] Jul, 2014 [facility] [address] [id number] [address] [place] [address], [place] [address] Jul, 2014 [facility] [address] [id number] [address] [place] [address], [place] [address] Jul, 2014 [facility] [address] [id number] [address] [place] [address], [place] [address] Jul, 2014 [facility] [address] [id number] [address] [place] [address], [place] [address] Jul, 2014 [facility] [address] [id number] [address] [place] [address], [place] [address] Jul, 2014 [facility] [address] [id number] [address] [place] [address], [place] [address] Jul, 2014 [facility] [address] [id number] [address] [place] [address], [place] [address] Jul, 2014 [facility] [address] [id number] [address] [place] [address], [place] [address] Jun, [facility] [address] [id number] [address] [place] [address], [place] [address] Jun, [facility] [address] [id number] [address] [place] [address], [place] [address] Jun, [facility] [address] [id number] [address] [place] [address], [place] [address] Jun, [facility] [address] [id number] [address] [place] [address], [place] [address] Jun, [facility] [address] [id number] [address] [place] [address], [place] [address] Jun, [facility] [address] [id number] [address] [place] [address], [place] [address] May, [facility] [address] [id number] [address] [place] [address], [place] [address] May, [facility] [address] [id number] [address] [place] [address], [place] [address] May, [facility] [address] [id number] [address] [place] [address], [place] [address] May, [facility] [address] [id number] [address] [place] [address], [place] [address] May, [facility] [address] [id number] [address] [place] [address], [place] [address] May, [facility] [address] [id number] [address] [place] [address], [place] [address] Apr, [facility] [address] [id number] [address] [place] [address], [place] [address] Apr, [facility] [address] [id number] [address] [place] [address], [place] [address] Apr, [facility] [address] [id number] [address] [place] [address], [place] [address] Apr, [facility] [address] [id number] [address] [place] [address], [place] [address] Apr, [facility] [address] [id number] [address] [place] [address], [place] [address] Apr, [facility] [address] [id number] [address] [place] [address], [place] [address] Mar, [facility] [address] [id number] [address] [place] [address], [place] [address] Mar, [facility] [address] [id number] [address] [place] [address], [place] [address] Mar, [facility] [address] [id number] [address] [place] [address], [place] [address] Mar, [facility] [address] [id number] [address] [place] [address], [place] [address] Mar, [facility] [address] [id number] [address] [place] [address] Mar, [facility] [address] [id number] [address] [place] [address], [place] [address] Mar, [facility] [address] [id number] [address] [place] [id number] Mar, [facility] [address] [id number] [address] [place] [address] Mar, [facility] [address] [id number] [address] [place] [address] Mar, [facility] [address] [id number] [address] [place] [address], [place] [address] Mar, [facility] [address] [id number] [address] [place] [id number] Mar, [facility] [address] [id number] [address] [place] [address], [place] [address] Feb, [facility] [address] [id number] [facility] [place] [address] 29 Feb, 2014 [facility] [address] [id number] [address] [place] [address], [place] [address] 29 Feb, 2014 [facility] [address] [id number] [address] [place] [address], [place] [address] Feb, [facility] [address] [id number] [address] [place] [address], [place] [address] Feb, [facility] [address] [id number] [address] [place] [address], [place] [address] Feb, [facility] [address] [id number] [address] [place] [address], [place] [address] Feb, [facility] [address] [id number] [address] [place] [address], [place] [address] Jan, [facility] [address] [id number] [address] [place] [address], [place] [address] Jan, [facility] [address] [id number] [address] [place] [address], [place] [address] Jan, [facility] [address] [id number] [address] [place] [address], [place] [address] Dec, [facility] [address] [id number] [address] [place] [address], [place] [address] Dec, [facility] [address] [id number] [address] [place] [address], [place] [address] Dec, [facility] [address] [id number] [address] [place] [address], [place] [address] Dec, [facility] [address] [id number] [address] [place] [address], [place] [address] Sep, [facility] [address] [id number] [address] [place] [address], [place] [address] Sep, [facility] [address] [id number] [address] [place] [address], [place] [address] Sep, [facility] [address] [id number] [address] [place] [address], [place] [address] Sep, [facility] [address] [id number] [address] [place] [address], [place] [address] Sep, [facility] [address] [id number] [address] [place] [address], [place] [address] Sep, [facility] [address] [id number] [address] [place] [address], [place] [address] Sep, [facility] [address] [id number] [address] [place] [address], [place] [address] Sep, [facility] [address] [id number] [address] [place] [address], [place] [address] Aug, [facility] [address] [id number] [address] [place] [address], [place] [address] Aug, [facility] [address] [id number] [address] [place] [address], [place] [address] May, [facility] [address] [id number] [address] [place] [address], [place] [address] May, [facility] [address] [id number] [address] [place] [address], [place] [address] Apr, [facility] [address] [id number] [address] [place] [address], [place] [address] Apr, [facility] [address] [id number] [address] [place] [address], [place] [address] Apr, [facility] [address] [id number] [address] [place] [address], [place] [address] Apr, [facility] [address] [id number] [address] [place] [address], [place] [address] Apr, [facility] [address] [id number] [address] [place] [address], [place] [address] Apr, [facility] [address] [id number] [address] [address] 18 May, 2012 [facility] [address] [id number] [address] [place] [address], [place] [address] 18 May, 2012 [facility] [address] [id number] [address] [place] [address], [place] [address] 15 May, 2012 [facility] [address] [id number] [address] [place] [address], [place] [address] 15 May, 2012 [facility] [address] [id number] [address] [place] [address], [place] [address] 13 May, 2012 [facility] [address] [id number] [address] [place] [address], [place] [address] 13 May, 2012 [facility] [address] [id number] [address] [place] [address], [place] [address] 13 Apr, 2012 [facility] [address] [id number] [address] [place] [address], [place] [address] 13 Apr, 2012 [facility] [address] [id number] [address] [place] [address], [place] [address] 08 Apr, 2012 [facility] [address] [id number] [address] [place] [address], [place] [address] 08 Apr, 2012 [facility] [address] [id number] [address] [place] [address], [place] [address] 08 Apr, 2012 [facility] [address] [id number] [address] [place] [address], [place] [address] Apr, [facility] [address] [id number] [address] [place] [address] Apr, [facility] [address] [id number] [address] [place] [address], [place] [address] Apr, [facility] [address] [id number] [address] [place] [address], [place] [address] Apr, [facility] [address] [id number] [address] [place] [address] Apr, [facility] [address] [id number] [address] [place] [address], [place] [address] Mar, [facility] [address] [id number] [address] [place] [address], [place] [address] Mar, [facility] [address] [id number] [address] [place] [address], [place] [address] Mar, [facility] [address] [id number] [address] [place] [address], [place] [address] Mar, [facility] [address] [id number] [address] [place] [address], [place] [address] Mar, [facility] [address] [id number] [address] [place] [address], [place] [address] Mar, [facility] [address] [id number] [address] [place] [address], [place] [address] Mar, [facility] [address] [id number] [address] [place] [address], [place] [address] Mar, [facility] [address] [id number] [address] [place] [address], [place] [address] Mar, [facility] [address] [id number] [address] [place] [address], [place] [address] 25 Feb, 2012 [facility] [address] [id number] [address] [place] [address], [place] [address] 16 Feb, 2012 [facility] [facility] [address] [id number] [address] [place] [address], [place] [address] Feb, [facility] [address] [id number] [address] [place] [address], [place] [address] Jan, [facility] [address] [id number] [address] [place] [address], [place] [address] Jan, [facility] [address] [id number] [address] [place] [address], [place] [address] Jan, [facility] [address] [id number] [address] [place] [address], [place] [address] Jan, [facility] [address] [id number] [address] [place] [address], [place] [address] Jan, [facility] [address] [id number] [address] [place] [address], [place] [address] Jan, [facility] [address] [id number] [address] [place] [address], [place] [address] 16 Jan, 2012 [facility] [address] [id number] [address] [place] [address], [place] [address] Jan, [facility] [address] [id number] [address] [place] [address], [place] [address] Jan, [facility] [address] [id number] [address] [place] [address], [place] [address] Jan, [facility] [address] [id number] [address] [place] [address], [place] [address] Dec, [facility] [address] [id number] [address] [place] [address], [place] [address] Dec, [facility] [address] [id number] [address] [place] [address], [place] [address] Dec, [facility] [address] [id number] [address] [place] [address], [place] [address] Dec, [facility] [address] [id number] [address] [place] [address], [place] [address] Nov, [facility] [address] [id number] [address] [place] [address], [place] [address] Nov, [facility] [address] [id number] [address] [place] [address], [place] [address] Nov, [facility] [address] [id number] [address] [place] [address], [place] [address] October, [facility] [address] [id number] [address] [place] [address], [place] [address] October, [facility] [address] [id number] [address] [place] [phone] October, [facility] [address] [id number] [address] [place] [phone] October, [facility] [address] [id number] [address] [place] [phone] October, [facility] [address] [id number] [address] [place] [phone] October, [facility] [address] [id number] [address] [place] [phone] Aug, [facility] [address] [id number] [address] [place] [phone] Mar, [facility] [address] [id number] [address] [place] [phone] Nov, [facility] [address] [id number] [address] [place] [phone] May, [facility] [address] [id number] [address] [place] [phone] May, [facility] [address] [id number] [address] [place] [phone] Apr, [facility] [address] [id number] [address] [place] [phone] Mar, [facility] [address] [id number] [address] [place] [phone] Mar, IMMUNIZATIONS No Known Immunizations SOCIAL HISTORY Never Assessed REASON FOR VISIT BH f/u PLAN OF CARE Activity Details Follow Up 1 Week Reason: F/U VITAL SIGNS MEDICATIONS Unknown Medications RESULTS No Results PROCEDURES Procedure Date Ordered Result Body Site [facility] VISIT MENTAL HEALTH ESTAB PT August 22, 2017 Psychotherapy, patient &/family, 45 minutes, established pat john August 22, 2017 INSTRUCTIONS MEDICATIONS ADMINISTERED No Known Medications [...]
--- OUTSIDE RECORDS SUMMARY | 2019-06-19 05:41 | XMS REPORT ---
Author Author Sydnie HANCOCK [facility] Address [address] [place] [address] Care Team Providers Care Patient Intake Representative Name Role Phone NAHOMY HANCOCK Unavailable PROBLEMS Type Condition ICD9-CM Code [id number] Code Onset Dates Condition S tatus SNOMED Code Problem Hormone replacement therapy Z79.890 Ac tive 576027720 Problem Abnormal CT scan, head R93.0 Active 152304283 Problem Sensorineural hearing loss (SNHL) of both ears H90 .3 Active 411712849 Problem History of colon polyps Z86.010 Active 933888295 Problem Bruising, spontaneous R23.3 Active 596251573 Problem Generalized anxiety disorder F41.1 A ctive 97041615 Problem Arthralgia of hip, unspecified laterality M25.559 Active 30943416 Problem Hematuria, unspecified type R31.9 Ac tive 00856322 Problem Imbalance R26.89 Active 753718183 Problem Hammer toe of right foot M20.41 Activ e 922625468 Problem Plantar wart of right foot B07.0 Act mitchell [id number] Problem Sciatica of left side M54.32 Active 50036194 Problem Hyperlipidemia, unspecified hyperlipidemia type E7 8.5 Active 06457710 Problem Hypertension I10 Active 7228985 3 Problem Night sweats R61 Active 6671037 0 Problem Fibromyalgia M79.7 Active 1978048 7 Problem Major depressive disorder, recurrent episode, moderate F33.1 Active 452483287 Problem Acute left-sided low back pain with left-sided sciatica M54.42 Active 617198871 Problem Bladder spasm N32.89 Active 729657 006 Problem Gastritis without bleeding, unspecified chronicity, unspecified gastritis type K29.70 Active 119181031 Problem Bipolar 1 disorder, mixed F31.60 Acti ve 66034745 Problem Grief F43.20 Active 66338119 Problem Other chronic pain G89.29 Active 8 3698153 Problem Allergic rhinitis J30.9 Active 61 728877 Problem Hot flashes due to menopause N95.1 A ctive 641611820 Problem Ataxia R27.0 Active 25987549 Problem Hearing loss, unspecified laterality H91.90 Active 11798413 ALLERGIES Substance Reaction Event Type Date Status Morphine Sulfate Unknown Drug Allergy Aug, Active Iodine Unknown Drug Allergy Aug, Active Lyrica 75 Mg Capsule "felt weird" Non Drug Allergy Aug, Act mitchell ENCOUNTERS Encounter Location Date Diagnosis [facility] [address] [address] Mar, [facility] [address] [address] Jan, [place] [address] [address] Jan, [place] [address] [address] Jan, [place] [address] [address] Dec, Bipolar 1 disorder, mixed F3 1.60 ; Generalized anxiety disorder F41.1 and Other ocean transportation intermediary (current) drug therapy Z79.899 [place] [address] [place] [id number] [place] [address] Dec, Other ocean transportation intermediary (current) dr ug therapy Z79.899 [place] [address] [place] [id number] [place] [address] Dec, Bipolar 1 disorder, mixed F3 1.60 [place] [address] [place] [id number] [place] [address] Dec, Bipolar 1 disorder, mixed F3 1.60 [place] [address] [place] [id number] [place] [address] Nov, Bipolar 1 disorder, mixed F3 1.60 [place] [address] [place] [id number] [place] [address] Nov, Bipolar 1 disorder, mixed F3 1.60 [facility] [address] [place] [id number] [place] [address] Nov, Bipolar 1 disorder, mixed F3 1.60 [facility] [address] [facility] [id number] [address] [place] [address] 11 Nov, 2017 Allergic rhinitis J30.9 [facility] [address] [place] [id number] [place] [address] Nov, Allergic rhinitis J30.9 [facility] [address] [place] [id number] [place] [address] Nov, [facility] [address] [address] Nov, Bipolar 1 disorder, mixed F3 1.60 [place] [address] [address] Nov, Fibromyalgia M79.7 and Aller gic rhinitis J30.9 [facility] [address] [place] [address] October, Bipolar 1 disorder, mixed F3 1.60 [facility] [address] [place] [id number] [place] [address] October, Acute nasopharyngitis J00 [facility] IN [facility] [address] [address] October, Bitten or stung by nonvenomo us insect and other nonvenomous arthropods, initial encounter W57.XXXA and Insect bite (nonvenomous) of abdominal wall, initial encounter S30.861A [place] [address] [place] [id number] [place] [address] October, Insect bite (nonvenomous) of abdominal wall, initial encounter S30.861A ; Bitten or stung by nonvenomous insect and other nonvenomous arthropods, initial encounter W57.XXXA ; Allergic rhinitis J30.9 and Low back pain M54.5 [facility] [address] [id number] [address] [place] [address] October, Bipolar 1 disorder, mixed F3 1.60 [facility] [address] [id number] [address] [place] [address] October, [facility] [address] [id number] [address] [place] [address] October, [facility] [address] [id number] [address] [place] [address] October, Bipolar 1 disorder, mixed F3 1.60 [facility] [address] [id number] [address] [place] [address] Sep, Bipolar 1 disorder, mixed F3 1.60 [facility] [address] [id number] [address] [place] [address] Sep, Other chronic pain G89.29 [facility] [address] [id number] [address] [place] [address] Sep, [facility] [address] [id number] [address] [place] [address] Sep, Bipolar 1 disorder, mixed F3 1.60 [facility] [address] [facility] [id number] [address] [place] [address] Sep, Allergic rhinitis J30.9 and Sciatica of left side M54.32 [facility] [address] [id number] [address] [place] [address] Sep, Bipolar 1 disorder, mixed F3 1.60 [facility] [address] [id number] [address] [place] [address] Sep, Bipolar 1 disorder, mixed F3 1.60 and Generalized anxiety disorder F41.1 [facility] [address] [id number] [address] [place] [address] Aug, [facility] [address] [facility] [id number] [address] [place] [address] Aug, Bipolar 1 disorder, mixed F3 1.60 [facility] [address] [id number] [address] [place] [address] Aug, Bipolar 1 disorder, mixed F3 1.60 [facility] [address] [facility] [id number] [address] [place] [address] Aug, [facility] [address] [facility] [id number] [address] [place] [address] Aug, Generalized anxiety disorder F41.1 [facility] [address] [id number] [address] [place] [address] Aug, Bipolar 1 disorder, mixed F3 1.60 [facility] [address] [facility] [id number] [address] [place] [address] Aug, Plantar wart of right foot B 07.0 [facility] [address] [facility] [id number] [address] [place] [address] Aug, Bipolar 1 disorder, mixed F3 1.60 [facility] [address] [facility] [id number] [address] [place] [address] Jul, Bipolar 1 disorder, mixed F3 1.60 [facility] [address] [facility] [id number] [address] [place] [address] Jul, [facility] [address] [facility] [id number] [address] [place] [id number] 14 Jul, 2017 Bipolar 1 disorder, mixed F3 1.60 [facility] [address] [facility] [id number] [address] [place] [address] Jul, Generalized anxiety disorder F41.1 [facility] [address] [facility] [id number] [address] [place] [address] Jul, Bipolar 1 disorder, mixed F3 1.60 [facility] [address] [facility] [id number] [address] [place] [address] Jul, Acute left-sided low back pa in with left-sided sciatica M54.42 [place] [address] [place] [address] 05 Jul, 2017 Coccydynia M53.3 [place] [address] [place] [id number] [place] [address] Jun, Bipolar 1 disorder, mixed F3 1.60 [facility] [place] [id number] [place] [address] Jun, Acute nasopharyngitis J00 [place] [address] [place] [id number] [place] [address] Jun, Bipolar 1 disorder, mixed F3 1.60 [place] [address] [address] Jun, Fibromyalgia M79.7 [place] [address] [address] Jun, Bipolar 1 disorder, mixed F3 1.60 [place] [address] [address] Jun, Fibromyalgia M79.7 and Bipol ar 1 disorder, mixed F31.60 [place] [address] [address] May, Bipolar 1 disorder, mixed F3 1.60 ; Generalized anxiety disorder F41.1 and Other ocean transportation intermediary (current) drug therapy Z79.899 [place] [address] [place] [address] May, Bipolar 1 disorder, mixed F3 1.60 [facility] [address] [place] [address] 14 May, 2017 Cough R05 and Body aches R52 [facility] [place] [address] [place] [id number] [place] [address] 10 May, 2017 Bladder spasm N32.89 and Acu te cystitis without hematuria N30.00 [place] [address] [address] 07 May, 2017 Bipolar 1 disorder, mixed F3 1.60 [facility] [address] [address] Apr, [facility] [address] [address] Apr, Major depressive disorder, r ecurrent episode, moderate F33.1 and Encounter for immunization Z23 [facility] [address] [address] Apr, Bipolar 1 disorder, mixed F3 1.60 [place] [address] [address] Apr, Bipolar 1 disorder, mixed F3 1.60 [place] [address] [address] 16 Apr, 2017 Bipolar 1 disorder, mixed F3 1.60 [facility] [address] [address] Apr, Yeast vaginitis B37.3 [facility] [address] [address] 09 Apr, 2017 Bipolar 1 disorder, mixed F3 1.60 [facility] [address] [address] 07 Apr, 2017 Encounter for immunization Z 23 and Cellulitis L03.90 [facility] [address] [place] [id number] [place] [address] Apr, Bipolar 1 disorder, mixed F3 1.60 [facility] [address] [address] Mar, Bipolar 1 disorder, mixed F3 1.60 [facility] [address] [address] Mar, Bipolar 1 disorder, mixed F3 1.60 [facility] [address] [address] Mar, Imbalance R26.89 and Encount er for immunization Z23 [place] [address] [place] [address] Mar, Generalized anxiety disorder F41.1 [place] [address] [address] Mar, Bipolar 1 disorder, mixed F3 1.60 [place] [address] [address] Mar, Generalized anxiety disorder F41.1 [place] [address] [place] [address] Mar, Bipolar 1 disorder, mixed F3 1.60 [place] [address] [address] Mar, Bipolar 1 disorder, mixed F3 1.60 [place] [address] [address] Feb, Bipolar 1 disorder, mixed F3 1.60 [place] [address] [address] Feb, Bipolar 1 disorder, mixed F3 1.60 and Generalized anxiety disorder F41.1 [place] [address] [address] Feb, Gastritis without bleeding, unspecified chronicity, unspecified gastritis type K29.70 ; Hammer toe of right foot M20.41 and Other viral warts B07.8 [place] [address] [address] Feb, Bipolar 1 disorder, mixed F3 1.60 [place] [address] [address] 13 Feb, 2017 Bipolar 1 disorder, mixed F3 1.60 [place] [address] [address] 05 Feb, 2017 Bipolar 1 disorder, mixed F3 1.60 [facility] [address] [facility] [id number] [address] [place] [address] Jan, Encounter for screening mamm ogram for breast cancer Z12.31 ; Other viral warts B07.8 and Allergic rhinitis J30.9 [facility] [address] [facility] [id number] [address] [place] [address] Jan, Bipolar 1 disorder, mixed F3 1.60 [facility] [address] [facility] [id number] [address] [place] [address] Jan, Bipolar 1 disorder, mixed F3 1.60 [place] [address] [facility] [id number] [address] [place] [address] Jan, [facility] [address] [facility] [id number] [address] [place] [address] Jan, Bipolar 1 disorder, mixed F3 1.60 [place] [address] [facility] [id number] [address] [place] [address] Jan, Bipolar 1 disorder, mixed F3 1.60 [facility] [address] [facility] [id number] [address] [place] [address] Jan, Allergic rhinitis J30.9 ; He maturia R31.9 and Colon cancer screening Z12.11 [facility] [address] [facility] [id number] [address] [place] [address] Dec, Bipolar 1 disorder, mixed F3 1.60 [facility] [address] [facility] [id number] [address] [place] [address] Dec, Bipolar 1 disorder, mixed F3 1.60 ; Generalized anxiety disorder F41.1 and Other ocean transportation intermediary (current) drug therapy Z79.899 [facility] [address] [facility] [id number] [address] [place] [address] Dec, Bipolar 1 disorder, mixed F3 1.60 [facility] [address] [facility] [id number] [address] [place] [address] Dec, Bipolar 1 disorder, mixed F3 1.60 [facility] [address] [facility] [id number] [address] [place] [address] Dec, Bipolar 1 disorder, mixed F3 1.60 [facility] [address] [facility] [id number] [address] [place] [address] Dec, Low back pain M54.5 and Recu rrent urinary tract infection N39.0 [facility] [address] [facility] [id number] [address] [place] [address] Nov, Bipolar 1 disorder, mixed F3 1.60 [facility] [address] [facility] [id number] [address] [place] [address] Nov, Bipolar 1 disorder, mixed F3 1.60 [facility] [address] [facility] [id number] [address] [place] [address] Nov, Bipolar 1 disorder, mixed F3 1.60 [facility] [address] [facility] [id number] [address] [place] [address] Nov, Bipolar 1 disorder, mixed F3 1.60 [facility] [address] [facility] [id number] [address] [place] [address] Nov, [facility] [address] [facility] [id number] [address] [place] [address] Nov, Anesthesia of skin R20.0 ; F requent UTI N39.0 ; Tobacco abuse Z72.0 and Colon cancer screening Z12.11 [facility] [address] [facility] [id number] [address] [place] [address] Nov, Bipolar 1 disorder, mixed F3 1.60 [facility] [address] [facility] [id number] [address] [place] [address] October, Bipolar 1 disorder, mixed F3 1.60 [facility] [address] [facility] [id number] [address] [place] [address] October, Bipolar 1 disorder, mixed F3 1.60 [facility] [address] [facility] [id number] [address] [place] [address] October, Bipolar 1 disorder, mixed F3 1.60 [place] [address] [address] October, Bipolar 1 disorder, mixed F3 1.60 [place] [address] [address] October, Bipolar 1 disorder, mixed F3 1.60 [place] [address] [address] October, Cervicalgia M54.2 and Bipola r 1 disorder, mixed F31.60 [place] [address] [address] October, Hypertension I10 ; Hyperlipi demia, unspecified hyperlipidemia type E78.5 and Family history of thyroid disease Z83.49 [place] [address] [address] October, [place] [address] [address] October, Hypertension I10 ; Hyperlipi demia, unspecified hyperlipidemia type E78.5 and Family history of thyroid problem Z83.49 [place] [address] [address] October, Bipolar 1 disorder, mixed F3 1.60 [place] [address] [address] Sep, Bipolar 1 disorder, mixed F3 1.60 [place] [address] [place] [id number] [place] [address] Sep, Bipolar 1 disorder, mixed F3 1.60 [place] [address] [address] Sep, Bipolar 1 disorder, mixed F3 1.60 [place] [address] [address] Sep, History of colon polyps Z86. 010 and Hematochezia K92.1 [facility] [address] [place] [address] Sep, Major depressive disorder, r ecurrent episode, moderate F33.1 [facility] [address] [place] [id number] [place] [address] Sep, Bipolar 1 disorder, mixed F3 1.60 [facility] [address] [place] [id number] [place] [address] Aug, Hot flashes due to menopause N95.1 [facility] [address] [place] [id number] [place] [address] Aug, Bipolar 1 disorder, mixed F3 1.60 [place] [address] [place] [id number] [place] [address] Aug, [facility] [address] [address] Aug, Bipolar 1 disorder, mixed F3 1.60 [facility] [address] [address] Aug, Bipolar 1 disorder, mixed F3 1.60 [facility] [address] [place] [id number] [place] [address] Aug, Hot flashes due to menopause N95.1 ; Cervicalgia M54.2 and Ataxia R27.0 [facility] [address] [place] [id number] [place] [address] Jul, Bipolar 1 disorder, mixed F3 1.60 [facility] [address] [place] [id number] [place] [address] Jul, Bipolar 1 disorder, mixed F3 1.60 [facility] [address] [place] [id number] [place] [address] Jul, Bipolar 1 disorder, mixed F3 1.60 [facility] [address] [place] [address] 13 Jul, 2016 Bipolar 1 disorder, mixed F3 1.60 [place] [address] [place] [address] 10 Jul, 2016 Bipolar 1 disorder, mixed F3 1.60 [place] [address] 08 Jul, 2016 Cervicalgia M54.2 ; Tremor R 25.1 ; Hearing abnormally acute, unspecified laterality H93.239 ; Alopecia L65.9 ; Encounter for immunization Z23 and Family history of thyroid disease Z83.49 [place] [address] Jul, Bipolar 1 disorder, mixed F3 1.60 [place] [address] [place] [address] Jun, [place] [address] [place] [address] Jun, Hearing disorder, unspecifie d laterality H93.299 [place] [address] [place] [address] Jun, Bipolar 1 disorder, mixed F3 1.60 [place] [address] [address] Jun, Bipolar 1 disorder, mixed F3 1.60 [place] [address] [address] Jun, Allergic rhinitis J30.9 [place] [address] [address] Jun, Bipolar 1 disorder, mixed F3 1.60 [place] [address] [address] Jun, Bipolar 1 disorder, mixed F3 1.60 [place] [address] [address] Jun, Allergic rhinitis J30.9 [facility] [address] [facility] [id number] [address] [place] [address] Jun, Allergic rhinitis J30.9 [facility] [address] [facility] [id number] [address] [place] [address] Jun, Bipolar 1 disorder, mixed F3 1.60 [facility] [address] [facility] [id number] [address] [place] [address] May, Bipolar 1 disorder, mixed F3 1.60 [facility] [address] [id number] [address] [place] [phone] May, Bipolar 1 disorder, mixed F3 1.60 [facility] [address] [facility] [id number] [address] [place] [id number] May, [facility] [address] [facility] [id number] [address] [place] [id number] May, Bipolar 1 disorder, mixed F3 1.60 [facility] [address] [facility] [id number] [address] [place] [id number] May, Bipolar 1 disorder, mixed F3 1.60 [facility] [address] [facility] [id number] [address] [place] [id number] May, [facility] [address] [facility] [id number] [address] [place] [id number] May, [facility] [address] [facility] [id number] [address] [place] [phone] May, [facility] [address] [facility] [id number] [address] [place] [phone] May, Abdominal pain, unspecified location R10.9 [facility] [address] [facility] [id number] [address] [place] [phone] May, [facility] [address] [facility] [id number] [address] [place] [id number] Apr, Hematuria R31.9 ; Ataxia R27 .0 and Hearing loss, unspecified laterality H91.90 [facility] [address] [id number] Apr, Bipolar 1 disorder, mixed F3 1.60 [facility] [address] [id number] 11 Apr, 2016 Acute effusion of both middl e ears H65.193 [facility] [address] [id number] 10 Apr, 2016 Hematuria R31.9 and Pyelonep hritis N12 [facility] [address] [id number] Apr, [place] [address] [id number] Mar, Bipolar 1 disorder, mixed F3 1.60 [place] [address] [id number] Mar, [facility] [address] [id number] Mar, Bipolar 1 disorder, mixed F3 1.60 [place] [address] [address] Mar, Bipolar 1 disorder, mixed F3 1.60 [facility] [address] [address] Mar, Encounter for immunization Z 23 and Gastritis without bleeding, unspecified chronicity, unspecified gastritis type K29.70 [place] [address] [address] 05 Mar, 2016 Bipolar 1 disorder, mixed F3 1.60 and Grief F43.20 [place] [address] [address] 05 Mar, 2016 Gastritis without bleeding, unspecified chronicity, unspecified gastritis type K29.70 [place] [address] [address] Mar, Bipolar 1 disorder, mixed F3 1.60 [place] [address] [place] [id number] [place], [place] [id number] Mar, Gastritis without bleeding, unspecified chronicity, unspecified gastritis type K29.70 [facility] [address] [place] [id number] [address] [place] [address] Mar, [place] [address] [place] [id number] [place] [address] Feb, Bipolar 1 disorder, mixed F3 1.60 [place] [address] [place] [id number] [place] [id number] Feb, Bipolar 1 disorder, mixed F3 1.60 and Grief F43.20 [place] [address] [place] [id number] [place] [address] Feb, Gastritis without bleeding, unspecified chronicity, unspecified gastritis type K29.70 [place] [address] [place] [id number] [place] [address] 14 Feb, 2016 Bipolar 1 disorder, mixed F3 1.60 [facility] [address] [place] [id number] [place] [address] Feb, Gastroesophageal reflux dise ase, esophagitis presence not specified K21.9 [facility] [address] [place] [id number] [place] [address] Jan, Bipolar 1 disorder, mixed F3 1.60 [place] [address] [place] [id number] [place] [address] Jan, Bipolar 1 disorder, mixed F3 1.60 and Unsteady gait R26.81 [place] [address] [place] [id number] [place] [address] Jan, Bipolar 1 disorder, mixed F3 1.60 [facility] [address] [place] [id number] [place] [address] Jan, Bipolar 1 disorder, mixed F3 1.60 and Other ocean transportation intermediary (current) drug therapy Z79.899 [facility] [address] [place] [id number] [address] [place] [address] Jan, Bipolar 1 disorder, mixed F3 1.60 [facility] [address] [place] [id number] [place] [address] Jan, Bipolar 1 disorder, mixed F3 1.60 [place] [address] [place] [id number] [place] [address] Jan, Bipolar 1 disorder, mixed F3 1.60 ; Grief F43.20 and 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 (current) drug therapy Z79.899 [place] [address] [place] [id number] [place] [address] Jan, Bipolar 1 disorder, mixed F3 1.60 [place] [address] [place] [id number] [address] [place] [address] Dec, [place] [address] [address] Dec, Bipolar 1 disorder, mixed F3 1.60 ; Vitamin D deficiency, unspecified E55.9 ; H/O allergic rhinitis Z87.09 ; Other chronic pain G89.29 and Dorsalgia, unspecified M54.9 [place] [address] [place] [id number] [place] [address] Dec, [place] [address] [place] [id number] [place] [address] Dec, Bipolar 1 disorder, mixed F3 1.60 [place] [address] [place] [id number] [place] [address] Dec, Major depressive disorder, r ecurrent episode, moderate F33.1 [place] [address] [place] [id number] [place] [address] Dec, Major depressive disorder, r ecurrent episode, moderate F33.1 [place] [address] [place] [id number] [address] [place] [address] Nov, [facility] [address] [facility] [id number] [address] [place] [address] Nov, Bipolar 1 disorder, mixed F3 1.60 [place] [address] [facility] [id number] [address] [place] [address] Nov, Major depressive disorder, r ecurrent episode, moderate F33.1 [place] [address] [facility] [id number] [address] [place] [address] Nov, Cervicalgia M54.2 ; Arthralg ia of hip, unspecified laterality M25.559 ; Allergic rhinitis J30.9 and Hormone replacement therapy Z79.890 [facility] [address] [facility] [id number] [address] [place] [address] Nov, Other seasonal allergic rhin itis J30.2 [place] [address] [address] [facility] [id number] [address] [place] [address] October, Major depressive disorder, r ecurrent episode, moderate F33.1 [place] [address] [address] [facility] [id number] [address] [place] [address] October, Major depressive disorder, r ecurrent episode, moderate F33.1 and Arthralgia of hip, unspecified laterality M25.559 [place] [address] [place] [id number] [place] [address] October, Grief F43.20 ; Hypertension I10 ; Hyperlipidemia, unspecified hyperlipidemia type E78.5 ; Other chronic pain G89.29 and Allergic rhinitis, unspecified allergic rhinitis type J30.9 [place] [address] [facility] [id number] [address] [place] [address] October, Major depressive disorder, r ecurrent episode, moderate F33.1 [place] [address] [facility] [id number] [address] [place] [address] Sep, Major depressive disorder, r ecurrent episode, moderate F33.1 [place] [address] [place] [id number] [address] [place] [address] Sep, [facility] [address] [place] [id number] [address] [place] [address] Sep, Major depressive disorder, r ecurrent episode, moderate F33.1 [facility] [address] [place] [id number] [address] [place] [address] Sep, Grief F43.20 [place] [address] [address] Aug, Major depressive disorder, r ecurrent episode, moderate F33.1 [place] [address] [place] [id number] [place] [address] Aug, Bipolar 1 disorder, mixed F3 1.60 [place] [address] [place] [id number] [place] [address] Aug, Allergic rhinitis J30.9 ; Ce rvicalgia M54.2 and Low back pain M54.5 [place] [address] [place] [id number] [address] [place] [address] Aug, Major depressive disorder, r ecurrent episode, moderate F33.1 [facility] [address] [place] [id number] [place] [address] Aug, Sinusitis J32.9 and Tobacco 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 [place] [id number] [place] [address] Aug, [place] [address] [address] Aug, Depressive disorder, not els ewhere classified F32.9 ; Hormone replacement therapy Z79.[address] scan, head R93.0 [place] [address] [place] [id number] [place] [address] Aug, Major depressive disorder, r ecurrent episode, moderate F33.1 [facility] [address] [place] [id number] [place] [address] Jul, Major depressive disorder, r ecurrent episode, moderate F33.1 [facility] [address] [facility] [id number] [address] [place] [address] Jul, Abdominal pain R10.9 and Hyp ertension I10 [facility] [address] [facility] [id number] [address] [place] [address] Jul, [facility] [address] [address] Jul, Major depressive disorder, r ecurrent episode, moderate F33.1 [facility] [address] [facility] [id number] [address] [place] [address] Jul, [facility] [address] [place] [id number] [place] [address] Jul, [facility] [address] [address] Jun, [facility] [address] [address] Jun, Depressive disorder, not els ewhere classified F32.9 [facility] [address] [place] [id number] [place] [address] Jun, [facility] [address] [place] [id number] [address] [place] [address] Jun, [facility] [address] [place] [id number] [place] [address] Jun, Arthralgia of hip, unspecifi ed laterality M25.559 ; Bruising, spontaneous R23.3 and Night sweats R61 [facility] [address] [place] [id number] [place] [address] Jun, [facility] [address] [place] [id number] [address] [place] [address] Jun, [facility] [address] [place] [id number] [address] [place] [address] May, [facility] [address] [id number] [address] [place] [address] May, Myalgia M79.1 and Screening, lipid Z13.220 [facility] [address] [id number] [address] [place] [address] Apr, Status post cervical spinal fusion Z98.1 ; Fibromyalgia M79.7 and Unsteady gait R26.81 [facility] [address] [id number] [address] [place] [address] Nov, [facility] [address] [id number] [address] [place] [address] Nov, [facility] [address] [id number] [address] [place] [address] October, [facility] [address] [id number] [address] [place] [address] October, [facility] [address] [id number] [address] [place] [address] October, [facility] [address] [facility] [id number] [address] [place] [address] October, [facility] [address] [facility] [id number] [address] [place] [address] October, [facility] [address] [facility] [id number] [address] [place] [address] October, Dysuria 788.1 ; Nausea 787.0 2 and Urinary tract infection 599.0 [facility] [address] [id number] [address] [place] [address] Sep, [facility] [address] [id number] [address] [place] [address] Sep, [facility] [address] [facility] [id number] [address] [place] [address] Aug, [facility] [address] [id number] [address] [place] [address] 25 Aug, 2014 [facility] [address] [id number] [address] [place] [address], [place] [address] 24 Aug, 2014 [facility] [address] [id number] [address] [place] [address], [place] [address] 24 Aug, 2014 [facility] [address] [id number] [address] [place] [address], [place] [address] 23 Aug, 2014 [facility] [address] [id number] [address] [place] [address], [place] [address] 19 Aug, 2014 [facility] [address] [id number] [address] [place] [address], [place] [address] 19 Aug, 2014 [facility] [address] [id number] [address] [place] [address], [place] [address] 19 Aug, 2014 [facility] [address] [id number] [address] [place] [address], [place] [address] 19 Aug, 2014 [facility] [address] [id number] [address] [place] [address], [place] [address] 18 Aug, 2014 [facility] [address] [id number] [address] [place] [address], [place] [address] 18 Aug, 2014 [facility] [address] [id number] [address] [place] [address], [place] [address] 13 Aug, 2014 [facility] [address] [id number] [address] [place] [address], [place] [address] 13 Aug, 2014 [facility] [address] [id number] [address] [place] [address], [place] [address] 11 Aug, 2014 [facility] [address] [id number] [address] [place] [address], [place] [address] 11 Aug, 2014 [facility] [address] [id number] [address] [place] [address], [place] [address] 06 Aug, 2014 [facility] [address] [id number] [address] [place] [address], [place] [address] 06 Aug, 2014 [facility] [address] [id number] [address] [place] [address], [place] [address] 05 Aug, 2014 [facility] [address] [id number] [address] [place] [address], [place] [address] 05 Aug, 2014 [facility] [address] [id number] [address] [place] [address], [place] [address] Aug, 2014 [facility] [address] [id number] [address] [place] [address], [place] [address] Aug, [facility] [address] [id number] [address] [place] [address], [place] [address] Aug, [facility] [address] [id number] [address] [place] [address], [place] [address] Jul, 2014 [facility] [address] [id number] [address] [place] [address], [place] [address] Jul, 2014 [facility] [address] [id number] [address] [place] [address], [place] [address] Jul, 2014 [facility] [address] [id number] [address] [place] [address], [place] [address] Jul, [facility] [address] [id number] [address] [place] [address], [place] [address] Jul, [facility] [address] [id number] [address] [place] [address], [place] [address] Jul, [facility] [address] [id number] [address] [place] [address], [place] [address] Jul, 2014 [facility] [address] [id number] [address] [place] [address], [place] [address] Jul, [facility] [address] [id number] [address] [place] [address], [place] [address] Jul, [facility] [address] [id number] [address] [place] [address], [place] [address] Jul, 2014 [facility] [address] [id number] [address] [place] [address] [place] [address] Jul, 2014 [facility] [address] [id number] [address] [place] [address], [place] [address] Jul, 2014 [facility] [address] [id number] [address] [place] [address], [place] [address] Jul, 2014 [facility] [address] [id number] [address] [place] [address], [place] [address] Jul, [facility] [address] [id number] [address] [place] [address], [place] [address] Jun, [facility] [address] [id number] [address] [place] [address], [place] [address] Jun, [facility] [address] [id number] [address] [place] [address], [place] [address] Jun, [facility] [address] [id number] [address] [place] [address], [place] [address] Jun, [facility] [address] [id number] [address] [place] [address], [place] [address] Jun, [facility] [address] [id number] [address] [place] [address], [place] [address] Jun, [facility] [address] [id number] [address] [place] [address], [place] [address] May, [facility] [address] [id number] [address] [place] [address], [place] [address] May, [facility] [address] [id number] [address] [place] [address], [place] [address] May, [facility] [address] [id number] [address] [place] [address], [place] [address] May, [facility] [address] [id number] [address] [place] [address], [place] [address] May, [facility] [address] [id number] [address] [place] [address], [place] [address] May, [facility] [address] [id number] [address] [place] [address], [place] [address] Apr, [facility] [address] [id number] [address] [place] [address], [place] [address] Apr, [facility] [address] [id number] [address] [place] [address], [place] [address] Apr, [facility] [address] [id number] [address] [place] [address], [place] [address] Apr, [facility] [address] [id number] [address] [place] [address], [place] [address] Apr, [facility] [address] [id number] [address] [place] [address], [place] [address] Apr, [facility] [address] [id number] [address] [place] [address], [place] [address] Mar, [facility] [address] [id number] [address] [place] [address], [place] [address] Mar, [facility] [address] [id number] [address] [place] [address], [place] [address] Mar, [facility] [address] [id number] [address] [place] [address] Mar, [facility] [address] [id number] [address] [place] [address] Mar, [facility] [address] [id number] [address] [place] [address] Mar, [facility] [address] [id number] [address] [place] [address], [place] [address] Mar, [facility] [address] [id number] [address] [place] [address], [place] [address] Mar, [facility] [address] [id number] [address] [place] [address] Mar, [facility] [address] [id number] [address] [place] [address] Mar, [facility] [address] [id number] [address] [place] [address], [place] [address] Mar, [facility] [address] [id number] [address] [place] [address], [place] [address] Mar, [facility] [address] [id number] [address] [place] [address], [place] [address] 30 Feb, 2014 [facility] [address] [id number] [address] [place] [address], [place] [address] Feb, [facility] [address] [id number] [address] [place] [address], [place] [address] Feb, [facility] [address] [id number] [address] [place] [address], [place] [address] Feb, [facility] [address] [id number] [address] [place] [address], [place] [address] Feb, [facility] [address] [id number] [address] [place] [address], [place] [address] Feb, [facility] [address] [id number] [address] [place] [address], [place] [address] Feb, [facility] [address] [id number] [address] [place] [address], [place] [address] Jan, [facility] [address] [id number] [address] [place] [address], [place] [address] Jan, [facility] [address] [id number] [address] [place] [address], [place] [address] Jan, [facility] [address] [id number] [address] [place] [address], [place] [address] Dec, [facility] [address] [id number] [address] [place] [address], [place] [address] Dec, [facility] [address] [id number] [address] [place] [address], [place] [address] Dec, [facility] [address] [id number] [address] [place] [address], [place] [address] Dec, [facility] [address] [id number] [address] [place] [address], [place] [address] Sep, [facility] [address] [id number] [address] [place] [address], [place] [address] Sep, [facility] [address] [id number] [address] [place] [address], [place] [address] Sep, [facility] [address] [id number] [address] [place] [address], [place] [address] Sep, [facility] [address] [id number] [address] [place] [address], [place] [address] Sep, [facility] [address] [id number] [address] [place] [address], [place] [address] Sep, [facility] [address] [id number] [address] [place] [address], [place] [address] Sep, [facility] [address] [id number] [address] [place] [address], [place] [address] Sep, [facility] [address] [id number] [address] [place] [address], [place] [address] Aug, [facility] [address] [id number] [address] [place] [address], [place] [address] Aug, [facility] [address] [id number] [address] [place] [address], [place] [address] May, [facility] [address] [id number] [address] [place] [address], [place] [address] May, [facility] [address] [id number] [address] [place] [address], [place] [address] Apr, [facility] [address] [id number] [address] [place] [address], [place] [address] Apr, [facility] [address] [id number] [address] [place] [address], [place] [address] Apr, [facility] [address] [id number] [address] [place] [address], [place] [address] Apr, [facility] [address] [id number] [address] [place] [address], [place] [address] Apr, [facility] [address] [id number] [address] [place] [address], [place] [address] Apr, [facility] [address] [id number] [address] [place] [address], [place] [address] May, [facility] [address] [id number] [address] [place] [address], [place] [address] 18 May, 2012 [facility] [address] [id number] [address] [place] [address], [place] [address] 15 May, 2012 [facility] [address] [id number] [address] [place] [address], [place] [address] 15 May, 2012 [facility] [address] [id number] [address] [place] [address], [place] [address] May, [facility] [address] [id number] [address] [place] [address], [place] [address] May, [facility] [address] [id number] [address] [place] [address], [place] [address] Apr, [facility] [address] [id number] [address] [place] [address], [place] [address] Apr, [facility] [address] [id number] [address] [place] [address], [place] [address] Apr, [facility] [address] [id number] [address] [place] [address], [place] [address] Apr, [facility] [address] [id number] [address] [place] [address], [place] [address] Apr, [facility] [address] [id number] [address] [place] [address], [place] [address] Apr, [facility] [address] [id number] [address] [place] [address] [place] [address] Apr, [facility] [address] [id number] [address] [place] [address], [place] [address] Apr, [facility] [address] [id number] [address] [place] [address] Apr, [facility] [address] [id number] [address] [place] [address], [place] [address] Apr, [facility] [address] [id number] [address] [place] [address], [place] [address] Mar, [facility] [facility] [address] [id number] [address] [place] [address], [place] [address] Mar, [facility] [address] [id number] [address] [place] [address], [place] [address] Mar, [facility] [address] [id number] [address] [place] [address], [place] [address] Mar, [facility] [address] [id number] [address] [place] [address], [place] [address] Mar, [facility] [address] [id number] [address] [place] [address], [place] [address] Mar, [facility] [address] [id number] [address] [place] [phone] Mar, [facility] [address] [id number] [address] [place] [address], [place] [address] Mar, [facility] [address] [id number] [address] [place] [phone] Mar, [facility] [address] [id number] [address] [place] [address], [place] [address] 25 Feb, 2012 [facility] [address] [id number] [address] [place] [address], [place] [address] 16 Sep2011 [facility] [address] [id number] [address] [place] [phone] 11 Feb, 2012 [facility] [address] [id number] [facility] [place] [address] Jan, [facility] [address] [id number] [address] [place] [address], [place] [address] Jan, [facility] [address] [id number] [address] [place] [address], [place] [address] Jan, [facility] [address] [id number] [address] [place] [address], [place] [address] Jan, [facility] [address] [id number] [address] [place] [address], [place] [address] Jan, [facility] [address] [id number] [address] [place] [address], [place] [address] Jan, [facility] [address] [id number] [address] [place] [address], [place] [address] 16 Jan, 2012 [facility] [address] [id number] [address] [place] [address], [place] [address] Jan, [facility] [address] [id number] [address] [place] [address], [place] [address] Jan, [facility] [address] [id number] [address] [place] [address], [place] [address] Jan, [facility] [address] [id number] [address] [place] [address], [place] [address] Dec, [facility] [address] [id number] [address] [place] [address], [place] [address] Dec, [facility] [address] [id number] [address] [place] [address], [place] [address] Dec, [facility] [address] [id number] [address] [place] [address], [place] [address] Dec, [facility] [address] [id number] [address] [place] [address], [place] [address] Nov, [facility] [address] [id number] [address] [place] [address], [place] [address] 08 Nov, 2011 [facility] [address] [id number] [address] [place] [phone] Nov, [facility] [address] [id number] [address] [place] [phone] October, [facility] [address] [id number] [address] [place] [phone] October, [facility] [address] [id number] [address] [place] [phone] October, [facility] [address] [id number] [address] [place] [phone] October, [facility] [address] [id number] [address] [place] [phone] October, [facility] [address] [id number] [address] [place] [phone] October, [facility] [address] [id number] [address] [place] [phone] Aug, [facility] [address] [id number] [address] [place] [phone] Mar, [facility] [address] [id number] [address] [place] [phone] Nov, [facility] [address] [id number] [address] [place] [phone] May, [facility] [address] [id number] [address] [place] [phone] May, [facility] [address] [id number] [address] [place] [phone] Apr, [facility] [address] [id number] [address] [place] [phone] Mar, [facility] [address] [id number] [address] [place] [id number] Mar, IMMUNIZATIONS No Known Immunizations SOCIAL HISTORY Never Assessed REASON FOR VISIT Pain (acute)(foot) , right foot hard spot on bottom., Dr. Cain increased neuron tin 100 mg TID, reports has been having sweats since increasing dose. CBrumbackR N PLAN OF CARE Activity Details Follow Up prn Reason: VITAL SIGNS Height 64 in 2017-08-20 Weight 159.6 lbs 2017-08-20 Temperature 98.4 degrees Fahrenheit 2017-08-20 Heart Rate 100 bpm 2017-08-20 Respiratory Rate 20 2017-08-20 BMI 27.39 kg/m2 2017-08-20 Blood pressure systolic 136 mmHg 2017-08-20 Blood pressure diastolic 74 mmHg 2017-08-20 MEDICATIONS Medication Instructions Dosage Frequency Start Date End Date Duration S tatus Myrbetriq 50 MG Orally Once a day 1 tablet 24h Active Gabapentin 100 mg Orally 3 times a day 1 capsule 8h 07 Jul, 2017 Active Flonase 50 MCG/ACT Nasally twice a day 1 spray in each nostril 12h Jan, Active Probiotic Acidophilus Ac tive Lidocaine-Prilocaine 2.5-2.5 % Active Vitamin D3 2000 UNIT Orally Once a day as directed 24h Dec, Active Cetirizine HCl 10 mg Orally Once a day 1 tablet 24h Jan, 201 7 Jan, 90 days Active Tramadol HCl 50 MG Orally every 6 hrs 1 tablet as needed for severe pain 6h Jun, Not-Taking Mucinex 600 MG Orally every 12 hrs 1 tablet as needed 12h Active Pantoprazole Sodium 20 MG TAKE 1 TABLET BY MOUTH ONCE DAILY 90 Active Nitrofurantoin Monohyd Macro 100 mg Orally Once a day 1 capsule with food 24h Active Flexeril 10 mg by oral route 2 times a day 1 tablet 12h Aug, 30 Active Vagifem 10 MCG Vaginal Two times a Week 1 tablet Active Fetzima 120 mg Orally Once a day TAKE 1 CAPSULE BY MOUTH DAILY 24h Active HydrOXYzine HCl 10 mg Orally BID prn anxiety, MAX 45 tabs monthly 1 t ablet 30 days Active Naproxen 500 mg Orally every 12 hrs 1 tablet with food or milk as n eeded 12h Jun, Active Magnesium 500 MG Orally Once a day 1 tablet with a meal 24h Dec, Active Voltaren 1 % Transdermal 4 times a day on neck Active Melatonin 5 mg Orally Once a day 2 tablets 24h May, 30 day(s) Active Estradiol 2 MG Orally Once a day 1 tablet 24h Active G39-Lyhqpe 1 MG Active Orally Once a day 1 capsule 24h Act mitchell Depakote ER 500 mg Orally at bedtime 2 tabs 30 days Active RESULTS No Results PROCEDURES Procedure Date Ordered Result Body Site SHAVE SKIN LESION 0.6-1 cm 2017-08-20 N/A CRYOTHERAPY OF SKIN 2017-08-20 N/A CRYOTHERAPY OF SKIN August 20, 2017 SHAVE F,E,E,N,L,M 0.6-1 CM August 20, 2017 FQ VISIT ESTABLISHED PATIENT August 20, 2017 INSTRUCTIONS MEDICATIONS ADMINISTERED No Known Medications [...]
--- OUTSIDE RECORDS SUMMARY | 2019-06-19 05:42 | XMS REPORT ---
Author Author Sydnie SQUIRES Organization [facility] Address [address] [place] [address] Care Team Providers Care International Manager Name Role Phone MIRIAN SQUIRES Unavailable PROBLEMS Type Condition ICD9-CM Code SHK62-FE Code Onset Dates Condition S tatus SNOMED Code Problem Hormone replacement therapy Z79.890 Ac tive 518129836 Problem Abnormal CT scan, head R93.0 Active 215992728 Problem Sensorineural hearing loss (SNHL) of both ears H90 .3 Active 468241847 Problem History of colon polyps Z86.010 Active 832990540 Problem Bruising, spontaneous R23.3 Active 341208454 Problem Generalized anxiety disorder F41.1 A ctive 75307691 Problem Arthralgia of hip, unspecified laterality M25.559 Active 37114247 Problem Hematuria, unspecified type R31.9 Ac tive 02269932 Problem Imbalance R26.89 Active 971938246 Problem Hammer toe of right foot M20.41 Activ e 692346981 Problem Plantar wart of right foot B07.0 Act mitchell [id number] Problem Sciatica of left side M54.32 Active 39552638 Problem Hyperlipidemia, unspecified hyperlipidemia type E7 8.5 Active 81501990 Problem Hypertension I10 Active 9939976 3 Problem Night sweats R61 Active 6368422 0 Problem Fibromyalgia M79.7 Active 7564737 7 Problem Major depressive disorder, recurrent episode, moderate F33.1 Active 922873080 Problem Acute left-sided low back pain with left-sided sciatica M54.42 Active 631793850 Problem Bladder spasm N32.89 Active 522129 006 Problem Gastritis without bleeding, unspecified chronicity, unspecified gastritis type K29.70 Active 385258185 Problem Bipolar 1 disorder, mixed F31.60 Acti ve 99367321 Problem Grief F43.20 Active 85958061 Problem Other chronic pain G89.29 Active 8 1354449 Problem Allergic rhinitis J30.9 Active 61 577653 Problem Hot flashes due to menopause N95.1 A ctive 526897826 Problem Ataxia R27.0 Active 75219264 Problem Hearing loss, unspecified laterality H91.90 Active 78069501 ALLERGIES No Information ENCOUNTERS Encounter Location Date Diagnosis [facility] [address] [id number] [address] [address] Dec, [facility] [address] [id number] [address] [place] [address] Nov, [facility] [address] [id number] [address] [place] [address] Nov, [facility] [address] [id number] [address] [address] Nov, [facility] [address] [facility] [id number] [address] [place] [address] October, [facility] [address] [facility] [id number] [address] [address] October, [facility] [address] [facility] [id number] [address] [address] October, Bipolar 1 disorder, mixed F3 1.60 [facility] [address] [facility] [id number] [address] [phone] October, [facility] [address] [facility] [id number] [address] [address] October, [facility] [address] [facility] [id number] [address] [place] [address] October, Bipolar 1 disorder, mixed F3 1.60 [facility] [address] [facility] [id number] [address] [address] Sep, Bipolar 1 disorder, mixed F3 1.60 [facility] [address] [facility] [id number] [address] [address] Sep, Other chronic pain G89.29 [facility] [address] [id number] [address] [address] Sep, [facility] [address] [id number] [address] [place] [address] Sep, Bipolar 1 disorder, mixed F3 1.60 [facility] [address] [facility] [id number] [address] [address] Sep, Allergic rhinitis J30.9 and Sciatica of left side M54.32 [facility] [address] [facility] [id number] [address] [address] Sep, Bipolar 1 disorder, mixed F3 1.60 [facility] [address] [facility] [id number] [address] [place] [address] Sep, Bipolar 1 disorder, mixed F3 1.60 and Generalized anxiety disorder F41.1 [facility] [address] [place] [id number] [address] [address] Aug, [facility] [address] [place] [id number] [address] [address] Aug, Bipolar 1 disorder, mixed F3 1.60 [facility] [address] [facility] [id number] [address] [address] Aug, Bipolar 1 disorder, mixed F3 1.60 [facility] [address] [facility] [id number] [address] [address] Aug, [facility] [address] [facility] [id number] [address] [address] Aug, Generalized anxiety disorder F41.1 [facility] [address] [facility] [id number] [address] [address] Aug, Bipolar 1 disorder, mixed F3 1.60 [facility] [address] [facility] [id number] [address] [place], [place] [id number] Aug, Plantar wart of right foot B 07.0 [facility] [address] [facility] [id number] [address] [address] Aug, Bipolar 1 disorder, mixed F3 1.60 [facility] [address] [facility] [id number] [address] [address] Jul, Bipolar 1 disorder, mixed F3 1.60 [facility] [address] [facility] [id number] [address] [place] [address] Jul, [facility] [address] [facility] [id number] [address] [address] Jul, Bipolar 1 disorder, mixed F3 1.60 [facility] [address] [facility] [id number] [address] [address] Jul, Generalized anxiety disorder F41.1 [facility] [address] [facility] [id number] [address] [address] 07 Jul, 2017 Bipolar 1 disorder, mixed F3 1.60 [facility] [address] [facility] [id number] [address] [address] 07 Jul, 2017 Acute left-sided low back pa in with left-sided sciatica M54.42 [facility] [address] [facility] [id number] [address] [address] 05 Jul, 2017 Coccydynia M53.3 [facility] [address] [facility] [id number] [address] [address] Jun, Bipolar 1 disorder, mixed F3 1.60 [facility] [address] [facility] [id number] [address] [address] 15 Jun, 2017 Acute nasopharyngitis J00 [facility] [address] [facility] [id number] [address] [address] Jun, Bipolar 1 disorder, mixed F3 1.60 [facility] [address] [facility] [id number] [address] [address] Jun, Fibromyalgia M79.7 [facility] [address] [facility] [id number] [address] [address] Jun, Bipolar 1 disorder, mixed F3 1.60 [place] [address] [address] 08 Jun, 2017 Fibromyalgia M79.7 and Bipol ar 1 disorder, mixed F31.60 [place] [address] [address] May, Bipolar 1 disorder, mixed F3 1.60 ; Generalized anxiety disorder F41.1 and Other 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 manager (current) drug therapy Z79.899 [place] [address] [address] May, Bipolar 1 disorder, mixed F3 1.60 [facility] [place] [address] [address] 14 May, 2017 Cough R05 and Body aches R52 [facility] [place] [address] [address] 10 May, 2017 Bladder spasm N32.89 and Acu te cystitis without hematuria N30.00 [place] [address] [address] 07 May, 2017 Bipolar 1 disorder, mixed F3 1.60 [place] [address] [address] Apr, [place] [address] [address] Apr, Major depressive disorder, r ecurrent episode, moderate F33.1 and Encounter for immunization Z23 [place] [address] [address] Apr, Bipolar 1 disorder, mixed F3 1.60 [place] [address] [address] Apr, Bipolar 1 disorder, mixed F3 1.60 [place] [address] [address] 16 Apr, 2017 Bipolar 1 disorder, mixed F3 1.60 [place] [address] [place] [id number] [place] [address] 13 Apr, 2017 Yeast vaginitis B37.3 [facility] [address] [place] [id number] [address] [address] 09 Apr, 2017 Bipolar 1 disorder, mixed F3 1.60 [facility] [address] [place] [id number] [address] [address] 07 Apr, 2017 Cellulitis L03.[address] for immunization Z23 [facility] [address] [place] [id number] [address] [address] Apr, Bipolar 1 disorder, mixed F3 1.60 [place] [address] [address] Mar, Bipolar 1 disorder, mixed F3 1.60 [place] [address] [address] Mar, Bipolar 1 disorder, mixed F3 1.60 [facility] [address] [place] [id number] [address] [place] [address] Mar, Imbalance R26.89 and Encount er for immunization Z23 [facility] [address] [place] [id number] [address] [address] Mar, Generalized anxiety disorder F41.1 [place] [address] [place] [id number] [address] [address] Mar, Bipolar 1 disorder, mixed F3 1.60 [facility] [id number] [place] [address] Mar, Generalized anxiety disorder F41.1 [place] [address] [place] [id number] [address] [address] Mar, Bipolar 1 disorder, mixed F3 1.60 [place] [address] [place] [id number] [address] [address] Mar, Bipolar 1 disorder, mixed F3 1.60 [place] [address] [place] [id number] [address] [address] 27 Feb, 2017 Bipolar 1 disorder, mixed F3 1.60 [place] [address] [place] [id number] [address] [place] [address] Feb, Bipolar 1 disorder, mixed F3 1.60 and Generalized anxiety disorder F41.1 [facility] [address] [place] [id number] [address] [place] [address] Feb, Gastritis without bleeding, unspecified chronicity, unspecified gastritis type K29.70 ; Hammer toe of right foot M20.41 and Other viral warts B07.8 [place] [address] [place] [id number] [place] [address] 20 Feb, 2017 Bipolar 1 disorder, mixed F3 1.60 [place] [address] [place] [id number] [place] [address] 13 Feb, 2017 Bipolar 1 disorder, mixed F3 1.60 [place] [address] [place] [address] 05 Feb, 2017 Bipolar 1 disorder, mixed F3 1.60 [place] [address] [address] Jan, Encounter for screening mamm ogram for breast cancer Z12.31 ; Other viral warts B07.8 and Allergic rhinitis J30.9 [place] [address] [place] [id number] [address] [place] [address] Jan, Bipolar 1 disorder, mixed F3 1.60 [place] [address] [place] [id number] [address] [place] [address] Jan, Bipolar 1 disorder, mixed F3 1.60 [place] [address] [place] [id number] [address] [place] [address] Jan, [place] [address] [place] [id number] [address] [place] [address] Jan, Bipolar 1 disorder, mixed F3 1.60 [place] [address] [place] [id number] [address] [address] Jan, Bipolar 1 disorder, mixed F3 1.60 [place] [address] [address] Jan, Allergic rhinitis J30.9 ; He maturia R31.9 and Colon cancer screening Z12.11 [place] [address] [address] Dec, Bipolar 1 disorder, mixed F3 1.60 [place] [address] [address] Dec, Bipolar 1 disorder, mixed F3 1.60 ; Generalized anxiety disorder F41.1 and Other detention (current) drug therapy Z79.899 [place] [address] [address] Dec, Bipolar 1 disorder, mixed F3 1.60 [place] [address] [address] Dec, Bipolar 1 disorder, mixed F3 1.60 [place] [address] [address] Dec, Bipolar 1 disorder, mixed F3 1.60 [place] [address] [address] Dec, Low back pain M54.5 and Recu rrent urinary tract infection N39.0 [place] [address] [place] [id number] [address] [place] [address] Nov, Bipolar 1 disorder, mixed F3 1.60 [place] [address] [place] [id number] [place] [address] Nov, Bipolar 1 disorder, mixed F3 1.60 [place] [address] [place] [id number] [place] [address] Nov, Bipolar 1 disorder, mixed F3 1.60 [place] [address] [address] Nov, Bipolar 1 disorder, mixed F3 1.60 [place] [address] [place] [address] Nov, [place] [address] [place] [id number] Nov, Anesthesia of skin R20.0 ; F requent UTI N39.0 ; Tobacco abuse Z72.0 and Colon cancer screening Z12.11 [place] [address] [address] Nov, Bipolar 1 disorder, mixed F3 1.60 [place] [address] [place] [address] October, Bipolar 1 disorder, mixed F3 1.60 [place] [address] [address] October, Bipolar 1 disorder, mixed F3 1.60 [place] [address] [address] October, Bipolar 1 disorder, mixed F3 1.60 [place] [address] [address] October, Bipolar 1 disorder, mixed F3 1.60 [place] [address] [address] October, Bipolar 1 disorder, mixed F3 1.60 [place] [address] [address] October, Cervicalgia M54.2 and Bipola r 1 disorder, mixed F31.[address] [address] October, Hypertension I10 ; Hyperlipi demia, unspecified hyperlipidemia type E78.5 and Family history of thyroid disease Z83.[address] [address] October, [place] [address] [address] October, Hypertension I10 ; Hyperlipi demia, unspecified hyperlipidemia type E78.5 and Family history of thyroid problem Z83.49 [place] [address] [place] [id number] [address] [place] [address] October, Bipolar 1 disorder, mixed F3 1.60 [place] [address] [address] Sep, Bipolar 1 disorder, mixed F3 1.60 [place] [address] [address] Sep, Bipolar 1 disorder, mixed F3 1.60 [place] [address] [address] Sep, Bipolar 1 disorder, mixed F3 1.60 [place] [address] [address] Sep, History of colon polyps Z86. 010 and Hematochezia K92.1 [place] [address] [address] Sep, Major depressive disorder, r ecurrent episode, moderate F33.1 [place] [address] [address] Sep, Bipolar 1 disorder, mixed F3 1.60 [place] [address] [place] [id number] [address] [place] [address] Aug, Hot flashes due to menopause N95.1 [place] [address] [place] [id number] [place] [address] Aug, Bipolar 1 disorder, mixed F3 1.60 [place] [address] [place] [id number] [address] [place] [address] Aug, [place] [address] [address] Aug, Bipolar 1 disorder, mixed F3 1.60 [place] [address] [address] Aug, Bipolar 1 disorder, mixed F3 1.60 [place] [address] [address] Aug, Hot flashes due to menopause N95.1 ; Cervicalgia M54.2 and Ataxia R27.0 [place] [address] [address] Jul, Bipolar 1 disorder, mixed F3 1.60 [place] [address] [place] [address] Jul, Bipolar 1 disorder, mixed F3 1.60 [place] [address] [address] Jul, Bipolar 1 disorder, mixed F3 1.60 [place] [address] [address] Jul, Bipolar 1 disorder, mixed F3 1.60 [place] [address] [address] Jul, Bipolar 1 disorder, mixed F3 1.60 [place] [address] [address] Jul, Cervicalgia M54.2 ; Tremor R 25.1 ; Hearing abnormally acute, unspecified laterality H93.239 ; Alopecia L65.9 ; Encounter for immunization Z23 and Family history of thyroid disease Z83.49 [place] [address] [place] [id number] Jul, Bipolar 1 disorder, mixed F3 1.60 [place] [address] [address] Jun, [place] [address] [address] Jun, Hearing disorder, unspecifie d laterality H93.299 [facility] [address] [id number] [address] [place] [address] Jun, Bipolar 1 disorder, mixed F3 1.60 [facility] [address] [id number] [address] [address] Jun, Bipolar 1 disorder, mixed F3 1.60 [facility] [address] [id number] [address] [address] Jun, Allergic rhinitis J30.9 [facility] [address] [id number] [address] [place] [address] Jun, Bipolar 1 disorder, mixed F3 1.60 [facility] [address] [id number] [address] [address] Jun, Bipolar 1 disorder, mixed F3 1.60 [facility] [address] [id number] [address] [address] Jun, Allergic rhinitis J30.9 [facility] [address] [id number] [address] [address] Jun, Allergic rhinitis J30.9 [facility] [address] [id number] [address] [address] Jun, Bipolar 1 disorder, mixed F3 1.60 [facility] [address] [id number] [address] [address] May, Bipolar 1 disorder, mixed F3 1.60 [facility] [address] [id number] [address] [address] May, Bipolar 1 disorder, mixed F3 1.60 [facility] [address] [facility] [id number] [address] [address] May, [facility] [address] [facility] [id number] [address] [address] May, Bipolar 1 disorder, mixed F3 1.60 [facility] [address] [facility] [id number] [address] [address] May, Bipolar 1 disorder, mixed F3 1.60 [facility] [address] [facility] [id number] [address] [address] May, [facility] [address] [facility] [id number] [address] [address] May, [facility] [address] [place] [id number] [address] [address] May, [facility] [address] [place] [id number] [address] [id number] May, Abdominal pain, unspecified location R10.9 [facility] [id number] [place] [id number] May, [facility] [address] [id number] Apr, Hematuria R31.9 ; Ataxia R27 .0 and Hearing loss, unspecified laterality H91.90 [facility] [address] [id number] [address] [place] [id number] Apr, Bipolar 1 disorder, mixed F3 1.60 [facility] [address] [facility] [id number] [address] [id number] Apr, Acute effusion of both middl e ears H65.193 [facility] [address] [facility] [id number] [address] [id number] Apr, Hematuria R31.9 and Pyelonep hritis N12 [facility] [address] [facility] [id number] [address] [id number] Apr, [facility] [address] [id number] [address] [place] [id number] Mar, Bipolar 1 disorder, mixed F3 1.60 [facility] [address] [id number] [address] [place] [id number] Mar, [place] [address] [id number] [address] [place] [id number] Mar, Bipolar 1 disorder, mixed F3 1.60 [place] [address] [place] [id number] [address] [place] [phone] Mar, Bipolar 1 disorder, mixed F3 1.60 [place] [address] [place] [id number] [address] [phone] Mar, Encounter for immunization Z 23 and Gastritis without bleeding, unspecified chronicity, unspecified gastritis type K29.70 [place] [address] [address] [place] [id number] [address] [place] [address] Mar, Bipolar 1 disorder, mixed F3 1.60 and Grief F43.20 [place] [address] [place] [id number] [address] [place] [address] Mar, Gastritis without bleeding, unspecified chronicity, unspecified gastritis type K29.70 [place] [id number] [address] Mar, Bipolar 1 disorder, mixed F3 1.60 [place] [address] [address] [place] [id number] [address] [place] [address] Mar, Gastritis without bleeding, unspecified chronicity, unspecified gastritis type K29.70 [place] [address] [place] [id number] [address] [place] [address] Mar, [place] [address] [place] [id number] [address] [place] [address] Feb, Bipolar 1 disorder, mixed F3 1.60 [place] [address] [place] [id number] [address] [address] Feb, Bipolar 1 disorder, mixed F3 1.60 and Grief F43.20 [place] [address] [place] [id number] [address] [place] [address] Feb, Gastritis without bleeding, unspecified chronicity, unspecified gastritis type K29.70 [place] [address] [place] [id number] [address] [place] [address] 14 Feb, 2016 Bipolar 1 disorder, mixed F3 1.60 [facility] [address] [facility] [id number] [address] [place] [address] Feb, Gastroesophageal reflux dise ase, esophagitis presence not specified K21.9 [facility] [address] [facility] [id number] [address] [place] [id number] Jan, Bipolar 1 disorder, mixed F3 1.60 [facility] [address] [facility] [id number] [address] [place] [address] Jan, Bipolar 1 disorder, mixed F3 1.60 and Unsteady gait R26.81 [facility] [address] [facility] [id number] [address] [place] [address] Jan, Bipolar 1 disorder, mixed F3 1.60 [facility] [address] [place] [id number] [address] [address] Jan, Bipolar 1 disorder, mixed F3 1.60 and Other 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 manager (current) drug therapy Z79.899 [place] [address] [place] [id number] [address] [address] Jan, Bipolar 1 disorder, mixed F3 1.60 [facility] [address] [place] [id number] [address] [place] [address] Jan, Bipolar 1 disorder, mixed F3 1.60 [facility] [address] [facility] [id number] [address] [place] [address] Jan, Bipolar 1 disorder, mixed F3 1.60 ; Grief F43.20 and Other detention (current) drug therapy Z79.899 [facility] [address] [place] [id number] [address] [place] [address] Jan, Bipolar 1 disorder, mixed F3 1.60 [facility] [address] [place] [id number] [address] [address] Dec, [facility] [address] [place] [id number] [address] [place] [address] Dec, Bipolar 1 disorder, mixed F3 1.60 ; Vitamin D deficiency, unspecified E55.9 ; H/O allergic rhinitis Z87.09 ; Other chronic pain G89.29 and Dorsalgia, unspecified M54.9 [facility] [address] [facility] [id number] [address] [place] [address] Dec, [facility] [address] [facility] [id number] [address] [place] [address] Dec, Bipolar 1 disorder, mixed F3 1.60 [facility] [address] [facility] [id number] [address] [place] [address] Dec, Major depressive disorder, r ecurrent episode, moderate F33.1 [facility] [address] [place] [id number] [address] [address] Dec, Major depressive disorder, r ecurrent episode, moderate F33.1 [place] [address] [place] [id number] [address] [address] Nov, [place] [address] [facility] [id number] [address] [address] Nov, Bipolar 1 disorder, mixed F3 1.60 [facility] [address] [place] [id number] [address] [address] Nov, Major depressive disorder, r ecurrent episode, moderate F33.1 [place] [address] [facility] [id number] [address] [place] [address] Nov, Cervicalgia M54.2 ; Arthralg ia of hip, unspecified laterality M25.559 ; Allergic rhinitis J30.9 and Hormone replacement therapy Z79.890 [facility] [address] [facility] [id number] [address] [place] [address] Nov, Other seasonal allergic rhin itis J30.2 [facility] [address] [facility] [id number] [address] [address] October, Major depressive disorder, r ecurrent episode, moderate F33.1 [place] [address] [facility] [id number] [address] [place] [address] October, Major depressive disorder, r ecurrent episode, moderate F33.1 and Arthralgia of hip, unspecified laterality M25.559 [place] [address] [facility] [id number] [address] [place] [address] October, Grief F43.20 ; Hypertension I10 ; Hyperlipidemia, unspecified hyperlipidemia type E78.5 ; Other chronic pain G89.29 and Allergic rhinitis, unspecified allergic rhinitis type J30.9 [place] [address] [facility] [id number] [address] [place] [address] October, Major depressive disorder, r ecurrent episode, moderate F33.1 [place] [address] [facility] [id number] [address] [place] [address] Sep, Major depressive disorder, r ecurrent episode, moderate F33.1 [place] [address] [facility] [id number] [address] [address] Sep, [place] [address] [facility] [id number] [address] [address] Sep, Major depressive disorder, r ecurrent episode, moderate F33.1 [place] [address] [place] [id number] [address] [address] Sep, Grief F43.20 [place] [address] [facility] [id number] [address] [place] [address] Aug, Major depressive disorder, r ecurrent episode, moderate F33.1 [place] [address] [facility] [id number] [address] [address] Aug, Bipolar 1 disorder, mixed F3 1.60 [place] [address] [facility] [id number] [address] [place] [address] Aug, Allergic rhinitis J30.9 ; Ce rvicalgia M54.2 and Low back pain M54.5 [place] [address] [facility] [id number] [address] [place] [address] Aug, Major depressive disorder, r ecurrent episode, moderate F33.1 [facility] [address] [facility] [id number] [address] [address] Aug, Sinusitis J32.9 and Tobacco 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 [facility] [address] [facility] [id number] [address] [address] Aug, [facility] [address] [place] [id number] [address] [place] [address] Aug, Depressive disorder, not els ewhere classified F32.9 ; Hormone replacement therapy Z79.[address] scan, head R93.0 [facility] [address] [place] [id number] [address] [place] [address] Aug, Major depressive disorder, r ecurrent episode, moderate F33.1 [facility] [address] [place] [id number] [address] [place] [address] Jul, Major depressive disorder, r ecurrent episode, moderate F33.1 [facility] [address] [place] [id number] [address] [place] [address] Jul, Abdominal pain R10.9 and Hyp ertension I10 [facility] [address] [place] [id number] [address] [place] [address] Jul, [facility] [address] [place] [id number] [address] [place] [address] Jul, Major depressive disorder, r ecurrent episode, moderate F33.1 [facility] [address] [facility] [id number] [address] [address] Jul, [facility] [address] [place] [id number] [address] [address] Jul, [facility] [address] [place] [id number] [address] [address] Jun, [place] [address] [id number] [address] [place] [address] Jun, Depressive disorder, not els ewhere classified F32.9 [facility] [address] [id number] [address] [place] [address] Jun, [facility] [address] [facility] [id number] [address] [place] [address] Jun, [facility] [address] [facility] [id number] [address] [address] Jun, Arthralgia of hip, unspecifi ed laterality M25.559 ; Bruising, spontaneous R23.3 and Night sweats R61 [facility] [address] [facility] [id number] [address] [place] [address] Jun, [facility] [address] [place] [id number] [address] [address] Jun, [facility] [address] [facility] [id number] [address] [place] [address] May, [facility] [address] [facility] [id number] [address] [address] May, Myalgia M79.1 and Screening, lipid Z13.220 [facility] [address] [facility] [id number] [address] [place] [address] Apr, Status post cervical spinal fusion Z98.1 ; Fibromyalgia M79.7 and Unsteady gait R26.81 [facility] [address] [facility] [id number] [address] [address] Nov, [facility] [address] [facility] [id number] [address] [address] Nov, [facility] [address] [facility] [id number] [address] [address] October, [facility] [address] [facility] [id number] [address] [address] October, [facility] [address] [id number] [address] [address] October, [facility] [address] [id number] [address] [address] October, [facility] [address] [id number] [address] [address] October, [facility] [address] [id number] [address] [address] October, Dysuria 788.1 ; Nausea 787.0 2 and Urinary tract infection 599.0 [facility] [address] [id number] [address] [address] Sep, [facility] [address] [id number] [address] [address] Sep, [facility] [address] [id number] [address] [address] Aug, [facility] [address] [id number] [address] [address] Aug, [facility] [address] [id number] [address] [address] Aug, [facility] [address] [id number] [address] [address] Aug, [facility] [address] [id number] [address] [id number] Aug, [facility] [address] [id number] [address] [address] Aug, [facility] [address] [id number] [address] [address] Aug, [facility] [address] [id number] [address] [address] Aug, [facility] [address] [id number] [address] [address] Aug, [facility] [address] [id number] [facility] [address] 18 Aug, 2014 [facility] [address] [id number] [address] [place] [address], [place] [address] 18 Aug, 2014 [facility] [address] [id number] [address] [place] [address], [place] [address] 13 Aug, 2014 [facility] [address] [id number] [address] [place] [address], [place] [address] 13 Aug, 2014 [facility] [address] [id number] [address] [place] [address], [place] [address] 11 Aug, 2014 [facility] [address] [id number] [address] [place] [address], [place] [address] 11 Aug, 2014 [facility] [address] [id number] [address] [place] [address], [place] [address] 06 Aug, 2014 [facility] [address] [id number] [address] [place] [address], [place] [address] 06 Aug, 2014 [facility] [address] [id number] [address] [place] [address], [place] [address] 05 Aug, 2014 [facility] [address] [id number] [address] [place] [address], [place] [address] 05 Aug, 2014 [facility] [address] [id number] [address] [place] [address], [place] [address] 04 Aug, 2014 [facility] [address] [id number] [address] [place] [address], [place] [address] Aug, [facility] [address] [id number] [address] [place] [address], [place] [address] Aug, [facility] [address] [id number] [address] [place] [address], [place] [address] Jul, [facility] [address] [id number] [address] [place] [address], [place] [address] Jul, [facility] [address] [id number] [address] [place] [address], [place] [address] Jul, 2014 [facility] [address] [id number] [address] [place] [address], [place] [address] Jul, 2014 [facility] [address] [id number] [address] [place] [address], [place] [address] Jul, 2014 [facility] [address] [id number] [address] [place] [address], [place] [address] Jul, 2014 [facility] [address] [id number] [address] [place] [address], [place] [address] Jul, 2014 [facility] [address] [id number] [address] [place] [address], [place] [address] Jul, 2014 [facility] [address] [id number] [address] [place] [address], [place] [address] Jul, 2014 [facility] [address] [id number] [address] [place] [address], [place] [address] Jul, 2014 [facility] [address] [id number] [address] [place] [address], [place] [address] Jul, [facility] [address] [id number] [address] [place] [address], [place] [address] Jul, [facility] [address] [id number] [address] [place] [address], [place] [address] Jul, [facility] [address] [id number] [address] [place] [address], [place] [address] Jul, [facility] [address] [id number] [address] [place] [address] Jun, [facility] [address] [id number] [address] [place] [address] Jun, [facility] [address] [id number] [address] [place] [address] Jun, [facility] [address] [id number] [address] [place] [address] Jun, [facility] [address] [id number] [address] [place] [address], [place] [address] Jun, [facility] [address] [id number] [address] [place] [address], [place] [address] Jun, [facility] [address] [id number] [address] [place] [address], [place] [address] May, [facility] [address] [id number] [address] [place] [address], [place] [address] May, [facility] [address] [id number] [address] [place] [address], [place] [address] May, [facility] [address] [id number] [address] [place] [address], [place] [address] May, [facility] [address] [id number] [address] [place] [address], [place] [address] May, [facility] [address] [id number] [address] [place] [address], [place] [address] May, [facility] [address] [id number] [address] [place] [address], [place] [address] Apr, [facility] [address] [id number] [address] [place] [address], [place] [address] Apr, [facility] [address] [id number] [address] [place] [address], [place] [address] Apr, [facility] [address] [id number] [address] [place] [address], [place] [address] Apr, [facility] [address] [id number] [address] [place] [address], [place] [address] Apr, [facility] [address] [id number] [address] [place] [address], [place] [address] Apr, [facility] [address] [id number] [address] [place] [address], [place] [address] Mar, [facility] [address] [id number] [address] [place] [address] Mar, [facility] [address] [id number] [address] [place] [address], [place] [address] Mar, [facility] [address] [id number] [address] [place] [address] Mar, [facility] [address] [id number] [address] [place] [address], [place] [id number] Mar, 2013 [facility] [address] [id number] [address] [place] [id number] Mar, 2013 [facility] [address] [id number] [address] [place] [address], [place] [id number] Mar, [facility] [address] [id number] [address] [place] [address], [place] [id number] Mar, [facility] [address] [id number] [address] [place] [address], [place] [id number] Mar, [facility] [address] [id number] [address] [place] [id number] Mar, [facility] [address] [id number] [address] [place] [id number] Mar, [facility] [address] [id number] [address] [place] [address], [place] [id number] Mar, [facility] [address] [id number] [address] [place] [id number] 30 Feb, 2013 [facility] [address] [id number] [address] [place] [id number] 29 Feb, 2013 [facility] [address] [id number] [address] [place] [address], [place] [id number] 29 Sep, 2013 [facility] [address] [id number] [address] [place] [address], [place] [id number] 23 Feb, 2013 [facility] [address] [id number] [address] [place] [address], [place] [id number] 23 Feb, 2013 [facility] [address] [id number] [facility] [id number] Feb, [facility] [address] [id number] [address] [place] [address], [place] [id number] Feb, [facility] [address] [id number] [address] [place] [address], [place] [id number] Jan, [facility] [address] [id number] [address] [place] [address], [place] [id number] Jan, [facility] [address] [id number] [address] [place] [address], [place] [id number] Jan, [facility] [address] [id number] [address] [place] [address], [place] [id number] Dec, [facility] [address] [id number] [address] [place] [address], [place] [id number] Dec, [facility] [address] [id number] [address] [place] [address], [place] [id number] Dec, [facility] [address] [id number] [address] [place] [address], [place] [id number] Dec, [facility] [address] [id number] [address] [place] [address], [place] [id number] Sep, [facility] [address] [id number] [address] [place] [address], [place] [id number] Sep, [facility] [address] [id number] [address] [place] [address], [place] [id number] Sep, [facility] [address] [id number] [address] [place] [address], [place] [id number] Sep, [facility] [address] [id number] [address] [place] [address], [place] [address] Sep, [facility] [address] [id number] [address] [place] [address], [place] [id number] Sep, [facility] [address] [id number] [address] [place] [address], [place] [address] Sep, [facility] [address] [id number] [address] [place] [address], [place] [address] Sep, [facility] [address] [id number] [address] [place] [address], [place] [address] Aug, [facility] [address] [id number] [address] [place] [address], [place] [address] Aug, [facility] [address] [id number] [address] [place] [address], [place] [address] May, [facility] [address] [id number] [address] [place] [address], [place] [address] May, [facility] [address] [id number] [address] [place] [address], [place] [address] Apr, [facility] [address] [id number] [address] [place] [address], [place] [id number] Apr, [facility] [address] [id number] [address] [place] [address], [place] [id number] Apr, [facility] [address] [id number] [address] [place] [address], [place] [address] Apr, [facility] [address] [id number] [address] [place] [address], [place] [address] Apr, [facility] [address] [id number] [address] [place] [address], [place] [address] Apr, [facility] [address] [id number] [address] [place] [address], [place] [id number] May, [facility] [address] [id number] [address] [place] [address], [place] [address] May, [facility] [address] [id number] [address] [place] [address], [place] [address] May, [facility] [address] [id number] [address] [place] [address], [place] [id number] May, [facility] [address] [id number] [address] [place] [address] [place] [id number] 13 May, 2012 [facility] [address] [id number] [address] [place] [address], [place] [id number] 13 May, 2012 [facility] [address] [id number] [address] [place] [address], [place] [id number] 13 Apr, 2012 [facility] [address] [id number] [address] [place] [address], [place] [address] Apr, [facility] [address] [id number] [address] [place] [address], [place] [id number] 08 Apr, 2012 [facility] [address] [id number] [address] [place] [address], [place] [id number] Apr, [facility] [address] [id number] [address] [place] [address], [place] [id number] Apr, [facility] [address] [id number] [address] [place] [address], [place] [id number] Apr, [facility] [address] [id number] [address] [place] [address], [place] [address] Apr, [facility] [address] [id number] [address] [place] [address], [place] [address] Apr, [facility] [address] [id number] [address] [place] [address], [place] [id number] Apr, [facility] [address] [id number] [address] [place] [address], [place] [address] Apr, [facility] [address] [id number] [address] [place] [id number] Mar, [facility] [address] [id number] [address] [place] [address], [place] [address] Mar, [facility] [address] [id number] [address] [place] [address], [place] [address] Mar, [facility] [address] [id number] [address] [place] [id number] Mar, [facility] [address] [id number] [address] [place] [address], [place] [address] Mar, [facility] [address] [id number] [address] [place] [address], [place] [address] Mar, [facility] [address] [id number] [address] [place] [address], [place] [address] Mar, [facility] [address] [id number] [address] [place] [address], [place] [address] Mar, [facility] [address] [id number] [address] [place] [address], [place] [address] Mar, [facility] [address] [id number] [address] [place] [address], [place] [id number] 25 Feb, 2012 [facility] [address] [id number] [address] [place] [address], [place] [id number] 16 Feb, 2012 [facility] [address] [id number] [address] [place] [address], [place] [id number] Feb, [facility] [address] [id number] [address] [place] [address], [place] [address] Jan, [facility] [address] [id number] [address] [place] [address], [place] [address] Jan, [facility] [address] [id number] [address] [place] [address], [place] [address] Jan, [facility] [address] [id number] [address] [place] [address], [place] [address] Jan, [facility] [address] [id number] [address] [place] [address], [place] [address] Jan, [facility] [address] [id number] [address] [place] [address], [place] [address] Jan, [facility] [address] [id number] [address] [place] [address], [place] [id number] 16 Jan, 2012 [facility] [address] [id number] [address] [place] [address], [place] [address] Jan, [facility] [address] [id number] [address] [place] [address], [place] [address] Jan, [facility] [address] [id number] [address] [place] [address], [place] [address] Jan, [facility] [address] [id number] [address] [place] [address], [place] [address] Dec, [facility] [address] [id number] [address] [place] [address], [place] [address] Dec, [facility] [address] [id number] [address] [place] [address], [place] [address] Dec, [facility] [address] [id number] [address] [place] [address], [place] [address] Dec, [facility] [address] [id number] [address] [place] [address], [place] [address] Nov, [facility] [address] [id number] [address] [place] [address], [place] [address] Nov, [facility] [address] [id number] [address] [place] [address], [place] [address] Nov, [facility] [address] [id number] [address] [place] [address], [place] [address] October, [facility] [address] [id number] [address] [place] [address], [place] [address] October, [facility] [address] [id number] [address] [place] [address], [place] [address] October, [facility] [address] [id number] [address] [place] [address], [place] [address] October, [facility] [address] [id number] [address] [place] [address], [place] [address] October, [facility] [address] [id number] [address] [place] [address], [place] [address] October, [facility] [address] [id number] [address] [place] [id number] Aug, [facility] [address] [id number] [address] [place] [id number] Mar, [facility] [address] [id number] [address] [place] [id number] Nov, [facility] [address] [id number] [address] [place] [id number] May, [facility] [address] [facility] [id number] [address] [id number] May, [facility] [address] [facility] [id number] [address] [place] [id number] Apr, [facility] [address] [facility] [id number] [address] [place] [id number] Mar, [facility] [address] [facility] [id number] [address] [place] [id number] Mar, IMMUNIZATIONS No Known Immunizations SOCIAL HISTORY Never Assessed REASON FOR VISIT Refill request PLAN OF CARE VITAL SIGNS MEDICATIONS Medication Instructions Dosage Frequency Start Date End Date Duration S tatus HydrOXYzine HCl 10 mg Orally BID prn [...]
--- OUTSIDE RECORDS SUMMARY | 2019-06-19 05:42 | XMS REPORT ---
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 Role Phone JOHN MORTON Unavailable PROBLEMS Type Condition ICD9-CM Code IAB41-YB Code Onset Dates Condition S tatus SNOMED Code Problem Hormone replacement therapy Z79.890 Ac tive 245471971 Problem Abnormal CT scan, head R93.0 Active 423738148 Problem Sensorineural hearing loss (SNHL) of both ears H90 .3 Active 320920041 Problem History of colon polyps Z86.010 Active 725726416 Problem Bruising, spontaneous R23.3 Active 680691082 Problem Generalized anxiety disorder F41.1 A ctive 17822160 Problem Arthralgia of hip, unspecified laterality M25.559 Active 66208486 Problem Hematuria, unspecified type R31.9 Ac tive 42254931 Problem Imbalance R26.89 Active 047850533 Problem Hammer toe of right foot M20.41 Activ e 550873721 Problem Plantar wart of right foot B07.0 Act mitchell [id number] Problem Sciatica of left side M54.32 Active 29094444 Problem Hyperlipidemia, unspecified hyperlipidemia type E7 8.5 Active 98549276 Problem Hypertension I10 Active 4988097 3 Problem Night sweats R61 Active 4446841 0 Problem Fibromyalgia M79.7 Active 7655298 7 Problem Major depressive disorder, recurrent episode, moderate F33.1 Active 847685290 Problem Acute left-sided low back pain with left-sided sciatica M54.42 Active 797964998 Problem Bladder spasm N32.89 Active 564508 006 Problem Gastritis without bleeding, unspecified chronicity, unspecified gastritis type K29.70 Active 473088337 Problem Bipolar 1 disorder, mixed F31.60 Acti ve 13762664 Problem Grief F43.20 Active 38510735 Problem Other chronic pain G89.29 Active 8 9053893 Problem Allergic rhinitis J30.9 Active 61 666137 Problem Hot flashes due to menopause N95.1 A ctive 759783470 Problem Ataxia R27.0 Active 96935681 Problem Hearing loss, unspecified laterality H91.90 Active 62280612 ALLERGIES No Information ENCOUNTERS Encounter Location Date Diagnosis [facility] [address] [facility] [place] [id number] [address] [place] [address] Jan, [facility] [address] [facility] [place] [id number] [address] [place] [address] Jan, [facility] [address] [facility] [place] [id number] [address] [place] [address] Jan, [facility] [address] [facility] [place] [id number] [address] [place] [address] Dec, [facility] [address] [place] [id number] [address] [place] [address] Dec, [facility] [address] [facility] [place] [id number] [address] [place] [address] Dec, Bipolar 1 disorder, mixed F3 1.60 [facility] [address] [facility] [place] [id number] [address] [place] [address] Dec, Bipolar 1 disorder, mixed F3 1.60 [facility] [address] [facility] [place] [id number] [address] [place] [address] Nov, Bipolar 1 disorder, mixed F3 1.60 [facility] [address] [facility] [place] [id number] [address] [place] [address] Nov, Bipolar 1 disorder, mixed F3 1.60 [facility] [address] [facility] [place] [id number] [address] [place] [address] Nov, Bipolar 1 disorder, mixed F3 1.60 [facility] [address] [facility] [place] [id number] [address] [place] [address] Nov, Allergic rhinitis J30.9 [facility] [address] [facility] [place] [id number] [address] [place] [address] Nov, Allergic rhinitis J30.9 [facility] [address] [facility] [place] [id number] [address] [place] [address] Nov, [facility] [address] [facility] [place] [id number] [address] [place] [address] Nov, Bipolar 1 disorder, mixed F3 1.60 [facility] [address] [place] [id number] [place] [address] Nov, Fibromyalgia M79.7 and Aller gic rhinitis J30.9 [facility] [address] [facility] [place] [id number] [address] [place] [address] October, Bipolar 1 disorder, mixed F3 1.60 [facility] [address] [place] [id number] [place] [address] October, Acute nasopharyngitis J00 [facility] [address] [address] October, Bitten or stung by nonvenomo us insect and other nonvenomous arthropods, initial encounter W57.XXXA and Insect bite (nonvenomous) of abdominal wall, initial encounter S30.861A [place] [address] [address] October, Insect bite (nonvenomous) of abdominal wall, initial encounter S30.861A ; Bitten or stung by nonvenomous insect and other nonvenomous arthropods, initial encounter W57.XXXA ; Allergic rhinitis J30.9 and Low back pain M54.5 [facility] [address] [place] [id number] [address] [place] [address] October, Bipolar 1 disorder, mixed F3 1.60 [facility] [address] [place] [id number] [address] [place] [address] October, [facility] [address] [place] [id number] [place] [address] October, [facility] [address] [place] [address] October, Bipolar 1 disorder, mixed F3 1.60 [facility] [address] [facility] [place] [id number] [address] [place] [address] Sep, Bipolar 1 disorder, mixed F3 1.60 [facility] [address] [facility] [place] [id number] [address] [place] [address] Sep, Other chronic pain G89.29 [facility] [address] [facility] [place] [id number] [address] [place] [address] Sep, [facility] [address] [facility] [place] [id number] [address] [place] [address] Sep, Bipolar 1 disorder, mixed F3 1.60 [facility] [address] [place] [id number] [address] [place] [address] Sep, Allergic rhinitis J30.9 and Sciatica of left side M54.32 [facility] [address] [place] [id number] [address] [place] [address] Sep, Bipolar 1 disorder, mixed F3 1.60 [facility] [address] [place] [id number] [address] [place] [address] Sep, Bipolar 1 disorder, mixed F3 1.60 and Generalized anxiety disorder F41.1 [facility] [address] [place] [id number] [address] [place] [address] Aug, [facility] [address] [facility] [place] [id number] [address] [place] [address] Aug, Bipolar 1 disorder, mixed F3 1.60 [facility] [address] [facility] [place] [id number] [address] [place] [address] Aug, Bipolar 1 disorder, mixed F3 1.60 [facility] [address] [place] [id number] [address] [place] [address] Aug, [facility] [address] [place] [id number] [address] [place] [address] Aug, Generalized anxiety disorder F41.1 [facility] [address] [facility] [place] [id number] [address] [place] [address] Aug, Bipolar 1 disorder, mixed F3 1.60 [facility] [address] [facility] [place] [id number] [address] [place] [address] Aug, Plantar wart of right foot B 07.0 [facility] [address] [facility] [place] [id number] [address] [place] [address] Aug, Bipolar 1 disorder, mixed F3 1.60 [facility] [address] [facility] [place] [id number] [address] [place] [address] Jul, Bipolar 1 disorder, mixed F3 1.60 [facility] [address] [facility] [place] [id number] [address] [place] [address] Jul, [facility] [address] [facility] [place] [id number] [address] [place] [address] Jul, Bipolar 1 disorder, mixed F3 1.60 [facility] [address] [facility] [place] [id number] [address] [place] [address] Jul, Generalized anxiety disorder F41.1 [facility] [address] [facility] [place] [id number] [address] [place] [address] Jul, Bipolar 1 disorder, mixed F3 1.60 [facility] [address] [facility] [place] [id number] [address] [place] [address] Jul, Acute left-sided low back pa in with left-sided sciatica M54.42 [facility] [address] [facility] [place] [id number] [address] [place] [address] Jul, Coccydynia M53.3 [facility] [address] [facility] [place] [id number] [address] [place] [address] Jun, Bipolar 1 disorder, mixed F3 1.60 [facility] [address] [facility] [place] [id number] [address] [place] [address] Jun, Acute nasopharyngitis J00 [place] [address] [address] Jun, Bipolar 1 disorder, mixed F3 1.60 [place] [address] [address] Jun, Fibromyalgia M79.7 [place] [address] [address] Jun, Bipolar 1 disorder, mixed F3 1.60 [place] [address] [address] Jun, Fibromyalgia M79.7 and Bipol ar 1 disorder, mixed F31.60 [place] [address] [address] May, Bipolar 1 disorder, mixed F3 1.60 ; Generalized anxiety disorder F41.1 and 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 [place] [address] [address] May, Bipolar 1 disorder, mixed F3 1.60 [facility] [address] [address] 14 May, 2017 Cough R05 and Body aches R52 [facility] [address] [address] 10 May, 2017 Bladder spasm N32.89 and Acu te cystitis without hematuria N30.00 [place] [address] [address] 07 May, 2017 Bipolar 1 disorder, mixed F3 1.60 [place] [address] [address] Apr, [place] [address] [address] Apr, Major depressive disorder, r ecurrent episode, moderate F33.1 and Encounter for immunization Z23 [place] [address] [address] Apr, Bipolar 1 disorder, mixed F3 1.60 [facility] [address] [place] [address] Apr, Bipolar 1 disorder, mixed F3 1.60 [facility] [address] [address] 16 Apr, 2017 Bipolar 1 disorder, mixed F3 1.60 [facility] [address] [address] 13 Apr, 2017 Yeast vaginitis B37.3 [facility] [address] 09 Apr, 2017 Bipolar 1 disorder, mixed F3 1.60 [facility] [address] [address] 07 Apr, 2017 Cellulitis L03.[address] for immunization Z23 [facility] [address] [address] Apr, Bipolar 1 disorder, mixed F3 1.60 [facility] [address] [address] Mar, Bipolar 1 disorder, mixed F3 1.60 [facility] [address] [address] Mar, Bipolar 1 disorder, mixed F3 1.60 [facility] [address] [place] [address] Mar, Imbalance R26.89 and Encount er for immunization Z23 [facility] [address] [place] [address] Mar, Generalized anxiety disorder F41.1 [facility] [address] [address] Mar, Bipolar 1 disorder, mixed F3 1.60 [facility] [address] [place] [address] Mar, Generalized anxiety disorder F41.1 [place] [address] [address] Mar, Bipolar 1 disorder, mixed F3 1.60 [facility] [address] [place] [id number] [place] [address] Mar, Bipolar 1 disorder, mixed F3 1.60 [place] [address] [address] Feb, Bipolar 1 disorder, mixed F3 1.60 [place] [address] [address] Feb, Bipolar 1 disorder, mixed F3 1.60 and Generalized anxiety disorder F41.1 [place] [address] [address] Feb, Gastritis without bleeding, unspecified chronicity, unspecified gastritis type K29.70 ; Hammer toe of right foot M20.41 and Other viral warts B07.8 [place] [address] [address] Feb, Bipolar 1 disorder, mixed F3 1.60 [place] [address] [place] [id number] [address] [place] [address] Feb, Bipolar 1 disorder, mixed F3 1.60 [place] [address] [place] [id number] [address] [place] [address] Feb, Bipolar 1 disorder, mixed F3 1.60 [place] [address] [place] [id number] [address] [place] [address] Jan, Encounter for screening mamm ogram for breast cancer Z12.31 ; Other viral warts B07.8 and Allergic rhinitis J30.9 [place] [address] [place] [id number] [address] [place] [address] Jan, Bipolar 1 disorder, mixed F3 1.60 [place] [address] [place] [id number] [address] [place] [address] Jan, Bipolar 1 disorder, mixed F3 1.60 [facility] [address] [facility] [place] [id number] [address] [place] [address] Jan, [facility] [address] [facility] [place] [id number] [address] [place] [address] Jan, Bipolar 1 disorder, mixed F3 1.60 [place] [address] [facility] [place] [id number] [address] [place] [address] Jan, Bipolar 1 disorder, mixed F3 1.60 [place] [address] [place] [id number] [address] [place] [address] Jan, Allergic rhinitis J30.9 ; He maturia R31.9 and Colon cancer screening Z12.11 [place] [address] [place] [id number] [address] [place] [address] Dec, Bipolar 1 disorder, mixed F3 1.60 [place] [address] [place] [id number] [address] [place] [address] Dec, Bipolar 1 disorder, mixed F3 1.60 ; Generalized anxiety disorder F41.1 and 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 [place] [address] [place] [id number] [address] [place] [address] Dec, Bipolar 1 disorder, mixed F3 1.60 [place] [address] [place] [id number] [address] [place] [address] Dec, Bipolar 1 disorder, mixed F3 1.60 [place] [address] [place] [id number] [address] [place] [address] Dec, Bipolar 1 disorder, mixed F3 1.60 [place] [address] [place] [id number] [address] [place] [address] Dec, Low back pain M54.5 and Recu rrent urinary tract infection N39.0 [place] [address] [place] [id number] [address] [place] [address] Nov, Bipolar 1 disorder, mixed F3 1.60 [facility] [address] [facility] [place] [id number] [address] [place] [address] Nov, Bipolar 1 disorder, mixed F3 1.60 [facility] [address] [facility] [place] [id number] [address] [place] [address] Nov, Bipolar 1 disorder, mixed F3 1.60 [facility] [address] [facility] [place] [id number] [address] [place] [address] Nov, Bipolar 1 disorder, mixed F3 1.60 [facility] [address] [facility] [place] [id number] [address] [place] [address] Nov, [facility] [address] [place] [id number] [address] [place] [address] Nov, Anesthesia of skin R20.0 ; F requent UTI N39.0 ; Tobacco abuse Z72.0 and Colon cancer screening Z12.11 [facility] [address] [place] [id number] [address] [place] [address] Nov, Bipolar 1 disorder, mixed F3 1.60 [facility] [address] [place] [id number] [address] [place] [address] October, Bipolar 1 disorder, mixed F3 1.60 [facility] [address] [place] [id number] [address] [place] [address] October, Bipolar 1 disorder, mixed F3 1.60 [facility] [address] [facility] [place] [id number] [address] [place] [address] October, Bipolar 1 disorder, mixed F3 1.60 [facility] [address] [facility] [place] [id number] [address] [place] [address] October, Bipolar 1 disorder, mixed F3 1.60 [facility] [address] [place] [id number] [address] [place] [address] October, Bipolar 1 disorder, mixed F3 1.60 [facility] [address] [place] [address] October, Cervicalgia M54.2 and Bipola r 1 disorder, mixed F31.60 [place] [address] [place] [address] October, Hypertension I10 ; Hyperlipi demia, unspecified hyperlipidemia type E78.5 and Family history of thyroid disease Z83.49 [place] [address] [place] [address] October, [place] [address] [place] [address] 08 Oct, 2016 Hypertension I10 ; Hyperlipi demia, unspecified hyperlipidemia type E78.5 and Family history of thyroid problem Z83.49 [place] [address] [place] [address] October, Bipolar 1 disorder, mixed F3 1.60 [place] [address] [address] Sep, Bipolar 1 disorder, mixed F3 1.60 [place] [address] [address] Sep, Bipolar 1 disorder, mixed F3 1.60 [place] [address] [address] Sep, Bipolar 1 disorder, mixed F3 1.60 [place] [address] [address] Sep, History of colon polyps Z86. 010 and Hematochezia K92.1 [place] [address] [address] Sep, Major depressive disorder, r ecurrent episode, moderate F33.1 [place] [address] [address] Sep, Bipolar 1 disorder, mixed F3 1.60 [place] [address] [place] [id number] Aug, Hot flashes due to menopause N95.1 [facility] [address] [place] [address] Aug, Bipolar 1 disorder, mixed F3 1.60 [facility] [address] [place] [address] Aug, [facility] [address] [place] [address] Aug, Bipolar 1 disorder, mixed F3 1.60 [place] [address] Aug, Bipolar 1 disorder, mixed F3 1.60 [place] [address] [place] [address] Aug, Hot flashes due to menopause N95.1 ; Cervicalgia M54.2 and Ataxia R27.0 [place] [address] [address] Jul, Bipolar 1 disorder, mixed F3 1.60 [place] [address] [place] [address] Jul, Bipolar 1 disorder, mixed F3 1.60 [place] [address] [address] Jul, Bipolar 1 disorder, mixed F3 1.60 [place] [address] [address] Jul, Bipolar 1 disorder, mixed F3 1.60 [place] [address] [place] [address] Jul, Bipolar 1 disorder, mixed F3 1.60 [place] [address] [address] Jul, Cervicalgia M54.2 ; Tremor R 25.1 ; Hearing abnormally acute, unspecified laterality H93.239 ; Alopecia L65.9 ; Encounter for immunization Z23 and Family history of thyroid disease Z83.49 [facility] [address] Jul, Bipolar 1 disorder, mixed F3 1.60 [place] [address] [place] [address] Jun, [place] [address] [place] [address] Jun, Hearing disorder, unspecifie d laterality H93.299 [place] [address] Jun, Bipolar 1 disorder, mixed F3 1.60 [place] [address] [place] [address] Jun, Bipolar 1 disorder, mixed F3 1.60 [place] [address] [place] [address] Jun, Allergic rhinitis J30.9 [place] [address] [place] [address] Jun, Bipolar 1 disorder, mixed F3 1.60 [place] [address] [place] [id number] Jun, Bipolar 1 disorder, mixed F3 1.60 [place] [address] [place] [address] Jun, Allergic rhinitis J30.9 [facility] [address] [place] [id number] [address] [place] [address] Jun, Allergic rhinitis J30.9 [facility] [address] [place] [id number] [address] [place], [place] [address] Jun, Bipolar 1 disorder, mixed F3 1.60 [facility] [address] [place] [id number] [address] [place] [address] May, Bipolar 1 disorder, mixed F3 1.60 [facility] [address] [facility] [place] [id number] [address] [place] [id number] May, Bipolar 1 disorder, mixed F3 1.60 [facility] [address] [facility] [place] [id number] [address] [place] [id number] May, [facility] [address] [facility] [place] [id number] [address] [place] [id number] May, Bipolar 1 disorder, mixed F3 1.60 [facility] [address] [facility] [place] [id number] [address] [place] [id number] May, Bipolar 1 disorder, mixed F3 1.60 [facility] [address] [facility] [place] [id number] [address] [place] [id number] May, [facility] [address] [id number] [address] [place] [phone] May, [facility] [address] [facility] [place] [id number] [address] [place] [id number] May, [facility] [address] [id number] [address] [place] [phone] May, Abdominal pain, unspecified location R10.9 [facility] [address] [facility] [place] [id number] [address] [place] [id number] May, [facility] [address] [facility] [place] [id number] [address] [place] [phone] Apr, Hematuria R31.9 ; Ataxia R27 .0 and Hearing loss, unspecified laterality H91.90 [facility] [address] [facility] [place] [id number] [address] [place] [id number] Apr, Bipolar 1 disorder, mixed F3 1.60 [facility] [address] [facility] [place] [id number] [address] [place] [id number] Apr, Acute effusion of both middl e ears H65.193 [facility] [address] [facility] [place] [id number] [address] [place] [id number] Apr, Hematuria R31.9 and Pyelonep hritis N12 [facility] [address] [facility] [place] [id number] [address] [place] [id number] Apr, [facility] [address] [facility] [place] [id number] [address] [place] [address] Mar, Bipolar 1 disorder, mixed F3 1.60 [place] [address] [place] [id number] [address] [place] [address] Mar, [place] [address] [place] [id number] [place] [address] Mar, Bipolar 1 disorder, mixed F3 1.60 [place] [address] [place] [id number] [place] [address] Mar, Bipolar 1 disorder, mixed F3 1.60 [place] [address] [place] [id number] [address] [place] [address] Mar, Encounter for immunization Z 23 and Gastritis without bleeding, unspecified chronicity, unspecified gastritis type K29.70 [place] [address] [place] [id number] [address] [place] [address] Mar, Bipolar 1 disorder, mixed F3 1.60 and Grief F43.20 [place] [address] [place] [id number] [address] [place] [address] Mar, Gastritis without bleeding, unspecified chronicity, unspecified gastritis type K29.70 [place] [address] [place] [id number] [address] [place] [address] Mar, Bipolar 1 disorder, mixed F3 1.60 [place] [address] [place] [id number] [address] [place] [address] Mar, Gastritis without bleeding, unspecified chronicity, unspecified gastritis type K29.70 [place] [address] [facility] [place] [id number] [address] [place] [address] Mar, [place] [address] [place] [id number] [address] [place] [address] Feb, Bipolar 1 disorder, mixed F3 1.60 [facility] [address] [place] [id number] [address] [place] [address] Feb, Bipolar 1 disorder, mixed F3 1.60 and Grief F43.20 [facility] [address] [place] [id number] [address] [place] [address] 22 Feb, 2016 Gastritis without bleeding, unspecified chronicity, unspecified gastritis type K29.70 [place] [address] [place] [id number] [address] [place] [id number] 14 Feb, 2016 Bipolar 1 disorder, mixed F3 1.60 [facility] [address] [place] [address] 09 Feb, 2016 Gastroesophageal reflux dise ase, esophagitis presence not specified K21.9 [place] [address] [address] Jan, Bipolar 1 disorder, mixed F3 1.60 [place] [address] [address] Jan, Bipolar 1 disorder, mixed F3 1.60 and Unsteady gait R26.81 [place] [address] [place] [address] Jan, Bipolar 1 disorder, mixed F3 1.60 [place] [address] [place] [id number] [address] [place] [address] Jan, Bipolar 1 disorder, mixed F3 1.60 and 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 [place] [address] [address] Jan, Bipolar 1 disorder, mixed F3 1.60 [place] [address] [place] [id number] [address] [place] [address] Jan, Bipolar 1 disorder, mixed F3 1.60 [place] [address] [place] [address] Jan, Bipolar 1 disorder, mixed F3 1.60 ; Grief F43.20 and Other long-term (current) 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 Z79.899 [place] [address] [place] [id number] [address] [place] [address] Jan, Bipolar 1 disorder, mixed F3 1.60 [place] [address] [place] [id number] [address] [place] [address] Dec, [place] [address] [place] [id number] [address] [place] [address] Dec, Bipolar 1 disorder, mixed F3 1.60 ; Vitamin D deficiency, unspecified E55.9 ; H/O allergic rhinitis Z87.09 ; Other chronic pain G89.29 and Dorsalgia, unspecified M54.9 [place] [address] [place] [id number] [address] [place] [address] Dec, [place] [address] [place] [id number] [address] [place] [address] Dec, Bipolar 1 disorder, mixed F3 1.60 [place] [address] [place] [id number] [address] [place] [address] Dec, Major depressive disorder, r ecurrent episode, moderate F33.1 [place] [address] [place] [id number] [address] [place] [address] Dec, Major depressive disorder, r ecurrent episode, moderate F33.1 [place] [address] [facility] [place] [id number] [address] [place] [address] Nov, [place] [address] [place] [id number] [address] [place] [address] Nov, Bipolar 1 disorder, mixed F3 1.60 [place] [address] [place] [id number] [address] [place] [address] Nov, Major depressive disorder, r ecurrent episode, moderate F33.1 [place] [address] [place] [id number] [address] [place] [address] Nov, Cervicalgia M54.2 ; Arthralg ia of hip, unspecified laterality M25.559 ; Allergic rhinitis J30.9 and Hormone replacement therapy Z79.890 [facility] [address] [facility] [place] [id number] [address] [place] [address] 13 Nov, 2015 Other seasonal allergic rhin itis J30.2 [facility] [address] [facility] [place] [id number] [address] [place] [address] October, Major depressive disorder, r ecurrent episode, moderate F33.1 [facility] [address] [facility] [place] [id number] [address] [place] [address] October, Major depressive disorder, r ecurrent episode, moderate F33.1 and Arthralgia of hip, unspecified laterality M25.559 [facility] [address] [facility] [place] [id number] [address] [place] [address] October, Grief F43.20 ; Hypertension I10 ; Hyperlipidemia, unspecified hyperlipidemia type E78.5 ; Other chronic pain G89.29 and Allergic rhinitis, unspecified allergic rhinitis type J30.9 [facility] [address] [facility] [place] [id number] [address] [place] [address] October, Major depressive disorder, r ecurrent episode, moderate F33.1 [place] [address] [facility] [place] [id number] [address] [place] [address] Sep, Major depressive disorder, r ecurrent episode, moderate F33.1 [facility] [address] [facility] [place] [id number] [address] [place] [address] Sep, [facility] [address] [facility] [place] [id number] [address] [place] [address] Sep, Major depressive disorder, r ecurrent episode, moderate F33.1 [facility] [address] [facility] [place] [id number] [address] [place] [address] Sep, Grief F43.20 [place] [address] [place] [id number] [address] [place] [address] Aug, Major depressive disorder, r ecurrent episode, moderate F33.1 [facility] [address] [place] [id number] [address] [place] [address] Aug, Bipolar 1 disorder, mixed F3 1.60 [facility] [address] [facility] [place] [id number] [address] [place] [address] Aug, Allergic rhinitis J30.9 ; Ce rvicalgia M54.2 and Low back pain M54.5 [facility] [address] [place] [address] Aug, Major depressive disorder, r ecurrent episode, moderate F33.1 [facility] [address] [place] [address] Aug, Sinusitis J32.9 and Tobacco 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 [place] [address] [place] [address] Aug, [place] [address] [address] Aug, Depressive disorder, not els ewhere classified F32.9 ; Hormone replacement therapy Z79.[address] scan, head R93.0 [place] [address] [place] [id number] [address] [place] [address] Aug, Major depressive disorder, r ecurrent episode, moderate F33.1 [place] [address] [place] [address] Jul, Major depressive disorder, r ecurrent episode, moderate F33.1 [place] [address] [place] [id number] [address] [place] [address] Jul, Abdominal pain R10.9 and Hyp ertension I10 [place] [address] [place] [id number] [address] [place] [address] Jul, [place] [address] [address] Jul, Major depressive disorder, r ecurrent episode, moderate F33.1 [facility] [address] [id number] [address] [place] [address] Jul, [facility] [address] [id number] [address] [place] [address] Jul, [facility] [address] [id number] [address] [place] [address] Jun, [facility] [address] [id number] [address] [place] [address] Jun, Depressive disorder, not els ewhere classified F32.9 [facility] [address] [facility] [place] [id number] [address] [place] [address] Jun, [place] [address] [place] [id number] [address] [place] [address] Jun, [place] [address] [place] [id number] [address] [place] [address] Jun, Arthralgia of hip, unspecifi ed laterality M25.559 ; Bruising, spontaneous R23.3 and Night sweats R61 [facility] [address] [facility] [place] [id number] [address] [place] [address] Jun, [place] [address] [place] [id number] [address] [place] [address] Jun, [facility] [address] [facility] [place] [id number] [address] [place] [address] May, [facility] [address] [place] [id number] [address] [place] [address] May, Myalgia M79.1 and Screening, lipid Z13.220 [place] [address] [facility] [place] [id number] [address] [place] [address] 10 Apr, 2015 Status post cervical spinal fusion Z98.1 ; Fibromyalgia M79.7 and Unsteady gait R26.81 [place] [address] [place] [id number] [address] [place] [address] Nov, [facility] [address] [id number] [address] [place] [address] Nov, [facility] [address] [id number] [address] [place] [address] October, [facility] [address] [id number] [address] [place] [address] October, [facility] [address] [id number] [address] [place] [address] October, [facility] [address] [id number] [address] [place] [address] October, [facility] [address] [id number] [address] [place] [address] October, [facility] [address] [id number] [address] [place] [address] October, Dysuria 788.1 ; Nausea 787.0 2 and Urinary tract infection 599.0 [facility] [address] [id number] [address] [place] [address] Sep, [facility] [address] [id number] [address] [place] [address] Sep, [facility] [address] [id number] [address] [place] [address] Aug, [facility] [address] [id number] [address] [place] [address] Aug, [facility] [address] [id number] [address] [place] [address] Aug, [facility] [address] [id number] [address] [place] [address] Aug, [facility] [address] [id number] [address] [place] [address] Aug, [facility] [address] [id number] [facility] [place] [address] 19 Aug, 2014 [facility] [address] [id number] [address] [place] [address], [place] [address] 19 Aug, 2014 [facility] [address] [id number] [address] [place] [address], [place] [address] 19 Aug, 2014 [facility] [address] [id number] [address] [place] [address], [place] [address] 19 Aug, 2014 [facility] [address] [id number] [address] [place] [address], [place] [address] 18 Aug, 2014 [facility] [address] [id number] [address] [place] [address], [place] [address] 18 Aug, 2014 [facility] [address] [id number] [address] [place] [address], [place] [address] 13 Aug, 2014 [facility] [address] [id number] [address] [place] [address], [place] [address] 13 Aug, 2014 [facility] [address] [id number] [address] [place] [address], [place] [address] 11 Aug, 2014 [facility] [address] [id number] [address] [place] [address], [place] [address] 11 Aug, 2014 [facility] [address] [id number] [address] [place] [address], [place] [address] 06 Aug, 2014 [facility] [address] [id number] [address] [place] [address], [place] [address] 06 Aug, 2014 [facility] [address] [id number] [address] [place] [address], [place] [address] 05 Aug, 2014 [facility] [address] [id number] [address] [place] [address], [place] [address] 05 Aug, 2014 [facility] [address] [id number] [address] [place] [address], [place] [address] 04 Aug, 2014 [facility] [address] [id number] [address] [place] [address], [place] [address] Aug, 2014 [facility] [address] [id number] [address] [place] [address], [place] [address] Aug, [facility] [address] [id number] [address] [place] [address], [place] [address] Jul, 2014 [facility] [address] [id number] [address] [place] [address], [place] [address] Jul, 2014 [facility] [address] [id number] [address] [place] [address], [place] [address] Jul, 2014 [facility] [address] [id number] [address] [place] [address], [place] [address] Jul, 2014 [facility] [address] [id number] [address] [place] [address], [place] [address] Jul, 2014 [facility] [address] [id number] [address] [place] [address], [place] [address] Jul, 2014 [facility] [address] [id number] [address] [place] [address], [place] [address] Jul, 2014 [facility] [address] [id number] [address] [place] [address], [place] [address] Jul, 2014 [facility] [address] [id number] [address] [place] [address], [place] [address] Jul, 2014 [facility] [address] [id number] [address] [place] [address], [place] [address] Jul, 2014 [facility] [address] [id number] [address] [place] [address], [place] [address] Jul, 2014 [facility] [address] [id number] [address] [place] [address], [place] [address] Jul, 2014 [facility] [address] [id number] [address] [place] [address], [place] [address] Jul, 2014 [facility] [address] [id number] [address] [place] [address], [place] [address] Jul, 2014 [facility] [address] [id number] [address] [place] [address], [place] [address] Jun, [facility] [address] [id number] [address] [place] [address], [place] [address] Jun, [facility] [address] [id number] [address] [place] [address], [place] [address] Jun, [facility] [address] [id number] [address] [place] [address], [place] [address] Jun, [facility] [address] [id number] [address] [place] [address], [place] [address] Jun, [facility] [address] [id number] [address] [place] [address], [place] [address] Jun, [facility] [address] [id number] [address] [place] [address], [place] [address] May, [facility] [address] [id number] [address] [place] [address], [place] [address] May, [facility] [address] [id number] [address] [place] [address], [place] [address] May, [facility] [address] [id number] [address] [place] [address], [place] [address] May, [facility] [address] [id number] [address] [place] [address], [place] [address] May, [facility] [address] [id number] [address] [place] [address], [place] [address] May, [facility] [address] [id number] [address] [place] [address], [place] [address] Apr, [facility] [address] [id number] [address] [place] [address], [place] [address] Apr, [facility] [address] [id number] [address] [place] [address], [place] [address] Apr, [facility] [address] [id number] [address] [place] [address], [place] [address] Apr, [facility] [address] [id number] [address] [place] [address], [place] [address] Apr, [facility] [address] [id number] [address] [place] [address], [place] [address] Apr, [facility] [address] [id number] [address] [place] [address], [place] [address] Mar, [facility] [address] [id number] [address] [place] [address], [place] [address] Mar, [facility] [address] [id number] [address] [place] [address], [place] [address] Mar, [facility] [address] [id number] [address] [place] [address], [place] [address] Mar, [facility] [address] [id number] [address] [place] [address], [place] [address] Mar, [facility] [address] [id number] [address] [place] [address] Mar, [facility] [address] [id number] [address] [place] [address], [place] [address] Mar, [facility] [address] [id number] [address] [place] [address] Mar, [facility] [address] [id number] [address] [place] [address] Mar, [facility] [address] [id number] [address] [place] [address] Mar, [facility] [address] [id number] [address] [place] [address], [place] [address] Mar, [facility] [address] [id number] [address] [place] [address] Mar, [facility] [address] [id number] [address] [place] [address], [place] [address] Feb, [facility] [address] [id number] [facility] [place] [address] 29 Feb, 2014 [facility] [address] [id number] [address] [place] [address], [place] [address] 29 Feb, 2014 [facility] [address] [id number] [address] [place] [address], [place] [address] Feb, [facility] [address] [id number] [address] [place] [address], [place] [address] Feb, [facility] [address] [id number] [address] [place] [address], [place] [address] Feb, [facility] [address] [id number] [address] [place] [address], [place] [address] Feb, [facility] [address] [id number] [address] [place] [address], [place] [address] Jan, [facility] [address] [id number] [address] [place] [address], [place] [address] Jan, [facility] [address] [id number] [address] [place] [address], [place] [address] Jan, [facility] [address] [id number] [address] [place] [address], [place] [address] Dec, [facility] [address] [id number] [address] [place] [address], [place] [address] Dec, [facility] [address] [id number] [address] [place] [address], [place] [address] Dec, [facility] [address] [id number] [address] [place] [address], [place] [address] Dec, [facility] [address] [id number] [address] [place] [address], [place] [address] Sep, [facility] [address] [id number] [address] [place] [address], [place] [address] Sep, [facility] [address] [id number] [address] [place] [address], [place] [address] Sep, [facility] [address] [id number] [address] [place] [address], [place] [address] Sep, [facility] [address] [id number] [address] [place] [address], [place] [address] Sep, [facility] [address] [id number] [address] [place] [address], [place] [address] Sep, [facility] [address] [id number] [address] [place] [address], [place] [address] Sep, [facility] [address] [id number] [address] [place] [address], [place] [address] Sep, [facility] [address] [id number] [address] [place] [address], [place] [address] Aug, [facility] [address] [id number] [address] [place] [address], [place] [address] Aug, [facility] [address] [id number] [address] [place] [address], [place] [address] May, [facility] [address] [id number] [address] [place] [address], [place] [address] May, [facility] [address] [id number] [address] [place] [address], [place] [address] Apr, [facility] [address] [id number] [address] [place] [address], [place] [address] Apr, [facility] [address] [id number] [address] [place] [address], [place] [address] Apr, [facility] [address] [id number] [address] [place] [address], [place] [address] Apr, [facility] [address] [id number] [address] [place] [address], [place] [address] Apr, [facility] [address] [id number] [address] [place] [address], [place] [address] Apr, [facility] [address] [id number] [address] [address] 18 May, 2012 [facility] [address] [id number] [address] [place] [address], [place] [address] 18 May, 2012 [facility] [address] [id number] [address] [place] [address], [place] [address] 15 May, 2012 [facility] [address] [id number] [address] [place] [address], [place] [address] 15 May, 2012 [facility] [address] [id number] [address] [place] [address], [place] [address] 13 May, 2012 [facility] [address] [id number] [address] [place] [address], [place] [address] 13 May, 2012 [facility] [address] [id number] [address] [place] [address], [place] [address] 13 Apr, 2012 [facility] [address] [id number] [address] [place] [address], [place] [address] 13 Apr, 2012 [facility] [address] [id number] [address] [place] [address], [place] [address] 08 Apr, 2012 [facility] [address] [id number] [address] [place] [address], [place] [address] 08 Apr, 2012 [facility] [address] [id number] [address] [place] [address], [place] [address] 08 Apr, 2012 [facility] [address] [id number] [address] [place] [address], [place] [address] Apr, [facility] [address] [id number] [address] [place] [id number] Apr, [facility] [address] [id number] [address] [place] [address], [place] [address] Apr, [facility] [address] [id number] [address] [place] [address], [place] [address] Apr, [facility] [address] [id number] [address] [place] [id number] Apr, [facility] [address] [id number] [address] [place] [address], [place] [address] Mar, [facility] [address] [id number] [address] [place] [address], [place] [address] Mar, [facility] [address] [id number] [address] [place] [address], [place] [address] Mar, [facility] [address] [id number] [address] [place] [address], [place] [address] Mar, [facility] [address] [id number] [address] [place] [address], [place] [address] Mar, [facility] [address] [id number] [address] [place] [address], [place] [address] Mar, [facility] [address] [id number] [address] [place] [address], [place] [address] Mar, [facility] [address] [id number] [address] [place] [address], [place] [address] Mar, [facility] [address] [id number] [address] [place] [address], [place] [address] Mar, [facility] [address] [id number] [address] [place] [address], [place] [address] 25 Feb, 2012 [facility] [address] [id number] [address] [place] [address], [place] [address] 16 Feb, 2012 [facility] [address] [id number] [address] [place] [address], [place] [address] Feb, [facility] [address] [id number] [address] [place] [address], [place] [address] Jan, [facility] [address] [id number] [address] [place] [address], [place] [address] Jan, [facility] [address] [id number] [address] [place] [address], [place] [address] Jan, [facility] [address] [id number] [address] [place] [address], [place] [address] Jan, [facility] [address] [id number] [address] [place] [address], [place] [address] Jan, [facility] [address] [id number] [address] [place] [address], [place] [address] Jan, [facility] [address] [id number] [address] [place] [address], [place] [address] 16 Jan, 2012 [facility] [address] [id number] [address] [place] [address], [place] [address] Jan, [facility] [address] [id number] [address] [place] [address], [place] [address] Jan, [facility] [address] [id number] [address] [place] [address], [place] [address] Jan, [facility] [address] [id number] [address] [place] [address], [place] [address] Dec, [facility] [address] [id number] [address] [place] [address], [place] [address] Dec, [facility] [address] [id number] [address] [place] [address], [place] [address] Dec, [facility] [address] [id number] [address] [place] [address], [place] [address] Dec, [facility] [address] [id number] [address] [place] [address], [place] [address] Nov, [facility] [address] [id number] [address] [place] [address], [place] [address] Nov, [facility] [address] [id number] [address] [place] [address], [place] [address] Nov, [facility] [address] [id number] [address] [place] [address], [place] [address] October, [facility] [address] [id number] [address] [place] [address], [place] [address] October, [facility] [address] [id number] [address] [place] [phone] October, [facility] [address] [id number] [address] [place] [address] October, [facility] [address] [id number] [address] [place] [id number] October, [facility] [address] [id number] [address] [place] [address] October, [facility] [address] [id number] [address] [place] [address] Aug, [facility] [address] [id number] [address] [place] [phone] Mar, [facility] [address] [id number] [address] [place] [id number] Nov, [facility] [address] [id number] [address] [place] [address] May, [facility] [address] [id number] [address] [place] [address] May, [facility] [address] [id number] [address] [place] [phone] Apr, [facility] [address] [id number] [address] [place] [address] Mar, [facility] [address] [id number] [address] [place] [phone] Mar, IMMUNIZATIONS No Known Immunizations SOCIAL HISTORY Never Assessed REASON FOR VISIT BH f/u PLAN OF CARE Activity Details Follow Up 1 Week Reason: F/U VITAL SIGNS MEDICATIONS Unknown Medications RESULTS No Results PROCEDURES Procedure Date Ordered Result Body Site [facility] VISIT MENTAL [facility]ALTH ESTAB PT August 16, 2017 Psychotherapy, patient &/family, 45 minutes, established pat john August 16, 2017 INSTRUCTIONS MEDICATIONS ADMINISTERED No Known Medications [...]
--- OUTSIDE RECORDS SUMMARY | 2019-06-19 05:42 | XMS REPORT ---
Author Author Sydnie SQUIRES Organization [facility] Address [address] [place] [address] Care Team Providers Care Manager Maritime Name Role Phone MIRIAN SQUIRES Unavailable PROBLEMS Type Condition ICD9-CM Code CUK97-OX Code Onset Dates Condition S tatus SNOMED Code Problem Hormone replacement therapy Z79.890 Ac tive 900001636 Problem Abnormal CT scan, head R93.0 Active 256284361 Problem Sensorineural hearing loss (SNHL) of both ears H90 .3 Active 475569774 Problem History of colon polyps Z86.010 Active 110667364 Problem Bruising, spontaneous R23.3 Active 312066917 Problem Generalized anxiety disorder F41.1 A ctive 24829809 Problem Arthralgia of hip, unspecified laterality M25.559 Active 41767817 Problem Hematuria, unspecified type R31.9 Ac tive 71514138 Problem Imbalance R26.89 Active 419343554 Problem Hammer toe of right foot M20.41 Activ e 250237524 Problem Plantar wart of right foot B07.0 Act mitchell [id number] Problem Sciatica of left side M54.32 Active 27060334 Problem Hyperlipidemia, unspecified hyperlipidemia type E7 8.5 Active 47565650 Problem Hypertension I10 Active 9221351 3 Problem Night sweats R61 Active 6528058 0 Problem Fibromyalgia M79.7 Active 0488693 7 Problem Major depressive disorder, recurrent episode, moderate F33.1 Active 974522923 Problem Acute left-sided low back pain with left-sided sciatica M54.42 Active 361536441 Problem Bladder spasm N32.89 Active 352066 006 Problem Gastritis without bleeding, unspecified chronicity, unspecified gastritis type K29.70 Active 654718585 Problem Bipolar 1 disorder, mixed F31.60 Acti ve 47445896 Problem Grief F43.20 Active 76428946 Problem Other chronic pain G89.29 Active 8 0857537 Problem Allergic rhinitis J30.9 Active 61 612530 Problem Hot flashes due to menopause N95.1 A ctive 910497462 Problem Ataxia R27.0 Active 33232097 Problem Hearing loss, unspecified laterality H91.90 Active 79524688 ALLERGIES No Information ENCOUNTERS Encounter Location Date Diagnosis [facility] [address] [facility] [id number] [address] [place] [address] Jan, [facility] [address] [facility] [id number] [address] [place] [address] Jan, [facility] [address] [facility] [id number] [address] [place] [address] Jan, [facility] [address] [facility] [id number] [address] [place] [address] Dec, [facility] [address] [place] [id number] [address] [place] [phone] Dec, [facility] [address] [facility] [id number] [address] [place] [address] Dec, Bipolar 1 disorder, mixed F3 1.60 [facility] [address] [facility] [id number] [address] [place] [address] Dec, Bipolar 1 disorder, mixed F3 1.60 [facility] [address] [place] [id number] [address] [place] [address] Nov, Bipolar 1 disorder, mixed F3 1.60 [facility] [address] [facility] [id number] [address] [place] [address] Nov, Bipolar 1 disorder, mixed F3 1.60 [facility] [address] [facility] [id number] [address] [place] [address] Nov, Bipolar 1 disorder, mixed F3 1.60 [facility] [address] [place] [id number] [address] [place] [address] Nov, Allergic rhinitis J30.9 [facility] [address] [facility] [id number] [address] [place] [address] Nov, Allergic rhinitis J30.9 [facility] [address] [facility] [id number] [address] [place] [address] Nov, [facility] [address] [facility] [id number] [address] [place] [address] Nov, Bipolar 1 disorder, mixed F3 1.60 [facility] [address] [place] [id number] [place] [address] Nov, Fibromyalgia M79.7 and Aller gic rhinitis J30.9 [facility] [address] [facility] [id number] [address] [place] [address] October, Bipolar 1 disorder, mixed F3 1.60 [facility] [address] [place] [id number] [place] [address] October, Acute nasopharyngitis J00 [facility] [address] [address] October, Bitten or stung by nonvenomo us insect and other nonvenomous arthropods, initial encounter W57.XXXA and Insect bite (nonvenomous) of abdominal wall, initial encounter S30.861A [place] [address] [address] October, Insect bite (nonvenomous) of abdominal wall, initial encounter S30.861A ; Bitten or stung by nonvenomous insect and other nonvenomous arthropods, initial encounter W57.XXXA ; Allergic rhinitis J30.9 and Low back pain M54.5 [facility] [address] [place] [id number] [address] [place] [address] October, Bipolar 1 disorder, mixed F3 1.60 [facility] [address] [place] [id number] [address] [place] [address] October, [facility] [address] [address] October, [facility] [address] [place] [address] October, Bipolar 1 disorder, mixed F3 1.60 [facility] [address] [facility] [id number] [address] [place] [address] Sep, Bipolar 1 disorder, mixed F3 1.60 [facility] [address] [facility] [id number] [address] [place] [address] Sep, Other chronic pain G89.29 [facility] [address] [facility] [id number] [address] [place] [address] Sep, [facility] [address] [facility] [id number] [address] [place] [address] Sep, Bipolar 1 disorder, mixed F3 1.60 [facility] [address] [place] [id number] [address] [place] [address] Sep, Allergic rhinitis J30.9 and Sciatica of left side M54.32 [facility] [address] [place] [id number] [address] [place] [address] Sep, Bipolar 1 disorder, mixed F3 1.60 [facility] [address] [place] [id number] [address] [place] [address] Sep, Bipolar 1 disorder, mixed F3 1.60 and Generalized anxiety disorder F41.1 [facility] [address] [place] [id number] [address] [place] [address] Aug, [facility] [address] [facility] [id number] [address] [place] [address] Aug, Bipolar 1 disorder, mixed F3 1.60 [facility] [address] [facility] [id number] [address] [place] [address] Aug, Bipolar 1 disorder, mixed F3 1.60 [facility] [address] [place] [id number] [address] [place] [address] Aug, [facility] [address] [place] [id number] [address] [place] [address] Aug, Generalized anxiety disorder F41.1 [facility] [address] [facility] [id number] [address] [place] [address] Aug, Bipolar 1 disorder, mixed F3 1.60 [facility] [address] [facility] [id number] [address] [place] [address] Aug, Plantar wart of right foot B 07.0 [facility] [address] [facility] [id number] [address] [place] [address] Aug, Bipolar 1 disorder, mixed F3 1.60 [facility] [address] [facility] [id number] [address] [place] [address] Jul, Bipolar 1 disorder, mixed F3 1.60 [facility] [address] [facility] [id number] [address] [place] [address] Jul, [facility] [address] [facility] [id number] [address] [place] [address] Jul, Bipolar 1 disorder, mixed F3 1.60 [facility] [address] [facility] [id number] [address] [place] [address] Jul, Generalized anxiety disorder F41.1 [facility] [address] [facility] [id number] [address] [place] [address] Jul, Bipolar 1 disorder, mixed F3 1.60 [facility] [address] [facility] [id number] [address] [place] [address] Jul, Acute left-sided low back pa in with left-sided sciatica M54.42 [facility] [address] [facility] [id number] [address] [place] [address] Jul, Coccydynia M53.3 [facility] [address] [facility] [id number] [address] [place] [address] Jun, Bipolar 1 disorder, mixed F3 1.60 [facility] [address] [facility] [id number] [address] [place] [address] Jun, Acute nasopharyngitis J00 [place] [address] [address] Jun, Bipolar 1 disorder, mixed F3 1.60 [place] [address] [address] Jun, Fibromyalgia M79.7 [place] [address] [address] Jun, Bipolar 1 disorder, mixed F3 1.60 [place] [address] [address] Jun, Fibromyalgia M79.7 and Bipol ar 1 disorder, mixed F31.60 [place] [address] [address] May, Bipolar 1 disorder, mixed F3 1.60 ; Generalized anxiety disorder F41.1 and Other long term care pharmacist (current) drug therapy Z79.899 [place] [address] [address] May, Bipolar 1 disorder, mixed F3 1.60 [facility] [address] [address] 14 May, 2017 Cough R05 and Body aches R52 [facility] [address] [address] May, Bladder spasm N32.89 and Acu te cystitis without hematuria N30.00 [place] [address] [address] May, Bipolar 1 disorder, mixed F3 1.60 [place] [address] [address] Apr, [place] [address] [address] Apr, Major depressive disorder, r ecurrent episode, moderate F33.1 and Encounter for immunization Z23 [place] [address] [place] [id number] [place] [address] Apr, Bipolar 1 disorder, mixed F3 1.60 [facility] [address] [place] [id number] [address] [place] [address] Apr, Bipolar 1 disorder, mixed F3 1.60 [facility] [address] [place] [id number] [place] [address] Apr, Bipolar 1 disorder, mixed F3 1.60 [facility] [address] [address] Apr, Yeast vaginitis B37.3 [place] [address] [address] Apr, Bipolar 1 disorder, mixed F3 1.60 [facility] [address] [address] Apr, Encounter for immunization Z 23 and Cellulitis L03.90 [place] [address] [address] Apr, Bipolar 1 disorder, mixed F3 1.60 [place] [address] [address] Mar, Bipolar 1 disorder, mixed F3 1.60 [place] [address] [address] Mar, Bipolar 1 disorder, mixed F3 1.60 [facility] [address] [address] Mar, Imbalance R26.89 and Encount er for immunization Z23 [place] [address] [address] Mar, Generalized anxiety disorder F41.1 [place] [address] [place] [id number] [address] [place] [address] Mar, Bipolar 1 disorder, mixed F3 1.60 [facility] [address] [place] [address] Mar, Generalized anxiety disorder F41.1 [place] [address] [address] Mar, Bipolar 1 disorder, mixed F3 1.60 [facility] [address] [place] [id number] [place] [address] Mar, Bipolar 1 disorder, mixed F3 1.60 [place] [address] [address] Feb, Bipolar 1 disorder, mixed F3 1.60 [place] [address] [address] Feb, Bipolar 1 disorder, mixed F3 1.60 and Generalized anxiety disorder F41.1 [place] [address] [address] Feb, Gastritis without bleeding, unspecified chronicity, unspecified gastritis type K29.70 ; Hammer toe of right foot M20.41 and Other viral warts B07.8 [place] [address] [address] Feb, Bipolar 1 disorder, mixed F3 1.60 [place] [address] [place] [id number] [address] [place] [address] Feb, Bipolar 1 disorder, mixed F3 1.60 [place] [address] [place] [id number] [address] [place] [address] Feb, Bipolar 1 disorder, mixed F3 1.60 [place] [address] [place] [id number] [address] [place] [address] Jan, Encounter for screening mamm ogram for breast cancer Z12.31 ; Other viral warts B07.8 and Allergic rhinitis J30.9 [place] [address] [place] [id number] [address] [place] [address] Jan, Bipolar 1 disorder, mixed F3 1.60 [place] [address] [place] [id number] [address] [place] [address] Jan, Bipolar 1 disorder, mixed F3 1.60 [facility] [address] [facility] [id number] [address] [place] [address] Jan, [facility] [address] [facility] [id number] [address] [place] [address] Jan, Bipolar 1 disorder, mixed F3 1.60 [place] [address] [facility] [id number] [address] [place] [address] Jan, Bipolar 1 disorder, mixed F3 1.60 [place] [address] [place] [id number] [address] [place] [address] Jan, Allergic rhinitis J30.9 ; He maturia R31.9 and Colon cancer screening Z12.11 [place] [address] [place] [id number] [address] [place] [address] Dec, Bipolar 1 disorder, mixed F3 1.60 [place] [address] [place] [id number] [address] [place] [address] Dec, Bipolar 1 disorder, mixed F3 1.60 ; Generalized anxiety disorder F41.1 and Other long term care pharmacist (current) drug therapy Z79.899 [place] [address] [place] [id number] [address] [place] [address] Dec, Bipolar 1 disorder, mixed F3 1.60 [place] [address] [place] [id number] [address] [place] [address] Dec, Bipolar 1 disorder, mixed F3 1.60 [place] [address] [place] [id number] [address] [place] [address] Dec, Bipolar 1 disorder, mixed F3 1.60 [place] [address] [place] [id number] [address] [place] [address] Dec, Low back pain M54.5 and Recu rrent urinary tract infection N39.0 [place] [address] [place] [id number] [address] [place] [address] Nov, Bipolar 1 disorder, mixed F3 1.60 [facility] [address] [facility] [id number] [address] [place] [address] Nov, Bipolar 1 disorder, mixed F3 1.60 [facility] [address] [facility] [id number] [address] [place] [address] Nov, Bipolar 1 disorder, mixed F3 1.60 [facility] [address] [facility] [id number] [address] [place] [address] Nov, Bipolar 1 disorder, mixed F3 1.60 [facility] [address] [facility] [id number] [address] [place] [address] Nov, [facility] [address] [place] [id number] [address] [place] [address] Nov, Anesthesia of skin R20.0 ; F requent UTI N39.0 ; Tobacco abuse Z72.0 and Colon cancer screening Z12.11 [facility] [address] [place] [id number] [address] [place] [address] Nov, Bipolar 1 disorder, mixed F3 1.60 [facility] [address] [place] [id number] [address] [place] [address] October, Bipolar 1 disorder, mixed F3 1.60 [facility] [address] [place] [id number] [address] [place] [address] October, Bipolar 1 disorder, mixed F3 1.60 [facility] [address] [facility] [id number] [address] [place] [address] October, Bipolar 1 disorder, mixed F3 1.60 [facility] [address] [facility] [id number] [address] [place] [address] October, Bipolar 1 disorder, mixed F3 1.60 [facility] [address] [place] [id number] [address] [place] [address] October, Bipolar 1 disorder, mixed F3 1.60 [facility] [address] [place] [address] October, Cervicalgia M54.2 and Bipola r 1 disorder, mixed F31.60 [place] [address] [place] [address] October, Hypertension I10 ; Hyperlipi demia, unspecified hyperlipidemia type E78.5 and Family history of thyroid disease Z83.49 [place] [address] [place] [address] October, [place] [address] [place] 4[address] 08 Oct, 2016 Hypertension I10 ; Hyperlipi demia, unspecified hyperlipidemia type E78.5 and Family history of thyroid problem Z83.49 [place] [address] [place] 4[address] October, Bipolar 1 disorder, mixed F3 1.60 [place] [address] [address] Sep, Bipolar 1 disorder, mixed F3 1.60 [place] [address] [address] Sep, Bipolar 1 disorder, mixed F3 1.60 [place] [address] [address] Sep, Bipolar 1 disorder, mixed F3 1.60 [place] [address] [address] Sep, History of colon polyps Z86. 010 and Hematochezia K92.1 [place] [address] [address] Sep, Major depressive disorder, r ecurrent episode, moderate F33.1 [place] [address] [address] Sep, Bipolar 1 disorder, mixed F3 1.60 [place] [address] [place] [id number] Aug, Hot flashes due to menopause N95.1 [facility] [address] [place] [address] Aug, Bipolar 1 disorder, mixed F3 1.60 [facility] [address] [place] [address] Aug, [facility] [address] [place] [address] Aug, Bipolar 1 disorder, mixed F3 1.60 [place] [address] Aug, Bipolar 1 disorder, mixed F3 1.60 [place] [address] [place] [address] Aug, Hot flashes due to menopause N95.1 ; Cervicalgia M54.2 and Ataxia R27.0 [place] [address] [address] Jul, Bipolar 1 disorder, mixed F3 1.60 [place] [address] [place] 4[address] Jul, Bipolar 1 disorder, mixed F3 1.60 [place] [address] [address] Jul, Bipolar 1 disorder, mixed F3 1.60 [place] [address] [address] Jul, Bipolar 1 disorder, mixed F3 1.60 [place] [address] [place] [address] Jul, Bipolar 1 disorder, mixed F3 1.60 [place] [address] [address] Jul, Cervicalgia M54.2 ; Tremor R 25.1 ; Hearing abnormally acute, unspecified laterality H93.239 ; Alopecia L65.9 ; Encounter for immunization Z23 and Family history of thyroid disease Z83.49 [facility] [address] Jul, Bipolar 1 disorder, mixed F3 1.60 [place] [id number] [place] 4[address] Jun, [place] [address] [place] [address] Jun, Hearing disorder, unspecifie d laterality H93.299 [place] [address] Jun, Bipolar 1 disorder, mixed F3 1.60 [place] [address] [place] 4[address] Jun, Bipolar 1 disorder, mixed F3 1.60 [place] [address] [place] 4[address] Jun, Allergic rhinitis J30.9 [place] [address] [place] [address] Jun, Bipolar 1 disorder, mixed F3 1.60 [place] [address] [place] [id number] Jun, Bipolar 1 disorder, mixed F3 1.60 [place] [address] [place] 4[address] Jun, Allergic rhinitis J30.9 [facility] [address] [place] [id number] [place] [address] Jun, Allergic rhinitis J30.9 [facility] [address] [place] [id number] [place], [place] [address] Jun, Bipolar 1 disorder, mixed F3 1.60 [facility] [address] [place] [id number] [place] [id number] May, Bipolar 1 disorder, mixed F3 1.60 [facility] [address] [facility] [id number] [address] [place] [id number] May, Bipolar 1 disorder, mixed F3 1.60 [facility] [address] [facility] [id number] [address] [place] [id number] May, [facility] [address] [facility] [id number] [address] [place] [id number] May, Bipolar 1 disorder, mixed F3 1.60 [facility] [address] [facility] [id number] [address] [place] [id number] May, Bipolar 1 disorder, mixed F3 1.60 [facility] [address] [facility] [id number] [address] [place] [id number] May, [facility] [address] [id number] [address] [place] [id number] May, [facility] [address] [facility] [id number] [address] [place] [id number] May, [facility] [address] [id number] [address] [place] [id number] May, Abdominal pain, unspecified location R10.9 [facility] [address] [facility] [id number] [address] [place] [id number] May, [facility] [address] [facility] [id number] [address] [place] [id number] Apr, Hematuria R31.9 ; Ataxia R27 .0 and Hearing loss, unspecified laterality H91.90 [facility] [address] [facility] [id number] [address] [place] [id number] Apr, Bipolar 1 disorder, mixed F3 1.60 [facility] [address] [facility] [id number] [address] [place] [id number] Apr, Acute effusion of both middl e ears H65.193 [facility] [address] [facility] [id number] [address] [place] [id number] Apr, Hematuria R31.9 and Pyelonep hritis N12 [facility] [address] [facility] [id number] [address] [place] [id number] Apr, [facility] [address] [facility] [id number] [address] [place] [id number] Mar, Bipolar 1 disorder, mixed F3 1.60 [place] [address] [place] [id number] [address] [place] [id number] Mar, [place] [address] [place] [id number] [place] [id number] Mar, Bipolar 1 disorder, mixed F3 1.60 [place] [address] [place] [id number] [place] [id number] Mar, Bipolar 1 disorder, mixed F3 1.60 [place] [address] [place] [id number] [address] [place] [id number] Mar, Encounter for immunization Z 23 and Gastritis without bleeding, unspecified chronicity, unspecified gastritis type K29.70 [place] [address] [place] [id number] [address] [place] [id number] Mar, Bipolar 1 disorder, mixed F3 1.60 and Grief F43.20 [place] [address] [place] [id number] [address] [place] [id number] Mar, Gastritis without bleeding, unspecified chronicity, unspecified gastritis type K29.70 [place] [address] [place] [id number] [address] [place] [id number] Mar, Bipolar 1 disorder, mixed F3 1.60 [place] [address] [place] [id number] [address] [place] [id number] Mar, Gastritis without bleeding, unspecified chronicity, unspecified gastritis type K29.70 [place] [address] [facility] [id number] [address] [place] [id number] Mar, [place] [address] [place] [id number] [address] [place] [id number] Feb, Bipolar 1 disorder, mixed F3 1.60 [facility] [address] [place] [id number] [address] [place] [id number] Feb, Bipolar 1 disorder, mixed F3 1.60 and Grief F43.20 [facility] [address] [place] [id number] [address] [place] [address] 22 Feb, 2016 Gastritis without bleeding, unspecified chronicity, unspecified gastritis type K29.70 [place] [address] [place] [id number] [address] [place] [id number] 14 Feb, 2016 Bipolar 1 disorder, mixed F3 1.60 [facility] [address] [place] [address] 09 Feb, 2016 Gastroesophageal reflux dise ase, esophagitis presence not specified K21.9 [place] [address] [address] Jan, Bipolar 1 disorder, mixed F3 1.60 [place] [address] [address] Jan, Bipolar 1 disorder, mixed F3 1.60 and Unsteady gait R26.81 [place] [address] [place] [id number] Jan, Bipolar 1 disorder, mixed F3 1.60 [place] [address] [place] [id number] [address] [place] [id number] Jan, Bipolar 1 disorder, mixed F3 1.60 and Other long term care pharmacist (current) drug therapy Z79.899 [place] [address] [address] Jan, Bipolar 1 disorder, mixed F3 1.60 [place] [address] [place] [id number] [address] [place] [address] Jan, Bipolar 1 disorder, mixed F3 1.60 [place] [address] [place] [id number] Jan, Bipolar 1 disorder, mixed F3 1.60 ; Grief F43.20 and Other long term care pharmacist (current) drug therapy Z79.899 [place] [address] [place] [id number] [address] [place] [address] Jan, Bipolar 1 disorder, mixed F3 1.60 [place] [address] [place] [id number] [address] [place] [phone] Dec, [place] [address] [place] [id number] [address] [place] [id number] Dec, Bipolar 1 disorder, mixed F3 1.60 ; Vitamin D deficiency, unspecified E55.9 ; H/O allergic rhinitis Z87.09 ; Other chronic pain G89.29 and Dorsalgia, unspecified M54.9 [place] [address] [place] [id number] [address] [place] [address] Dec, [place] [address] [place] [id number] [address] [place] [address] Dec, Bipolar 1 disorder, mixed F3 1.60 [place] [address] [place] [id number] [address] [place] [address] Dec, Major depressive disorder, r ecurrent episode, moderate F33.1 [place] [address] [place] [id number] [address] [place] [address] Dec, Major depressive disorder, r ecurrent episode, moderate F33.1 [place] [address] [facility] [id number] [address] [place] [id number] Nov, [place] [address] [place] [id number] [address] [place] [address] Nov, Bipolar 1 disorder, mixed F3 1.60 [place] [address] [place] [id number] [address] [place] [address] Nov, Major depressive disorder, r ecurrent episode, moderate F33.1 [place] [address] [place] [id number] [address] [place] [address] Nov, Cervicalgia M54.2 ; Arthralg ia of hip, unspecified laterality M25.559 ; Allergic rhinitis J30.9 and Hormone replacement therapy Z79.890 [facility] [address] [facility] [id number] [address] [place] [id number] 13 Nov, 2015 Other seasonal allergic rhin itis J30.2 [facility] [address] [facility] [id number] [address] [place] [id number] October, Major depressive disorder, r ecurrent episode, moderate F33.1 [facility] [address] [facility] [id number] [address] [place] [address] October, Major depressive disorder, r ecurrent episode, moderate F33.1 and Arthralgia of hip, unspecified laterality M25.559 [facility] [address] [facility] [id number] [address] [place] [address] October, Grief F43.20 ; Hypertension I10 ; Hyperlipidemia, unspecified hyperlipidemia type E78.5 ; Other chronic pain G89.29 and Allergic rhinitis, unspecified allergic rhinitis type J30.9 [facility] [address] [facility] [id number] [address] [place] [id number] October, Major depressive disorder, r ecurrent episode, moderate F33.1 [place] [id number] [facility] [id number] [address] [place] [phone] Sep, Major depressive disorder, r ecurrent episode, moderate F33.1 [facility] [address] [facility] [id number] [address] [place] [phone] Sep, [facility] [address] [facility] [id number] [address] [place] [id number] Sep, Major depressive disorder, r ecurrent episode, moderate F33.1 [facility] [address] [facility] [id number] [address] [place] [id number] Sep, Grief F43.20 [place] [address] [place] [id number] [address] [place] [address] Aug, Major depressive disorder, r ecurrent episode, moderate F33.1 [facility] [address] [place] [id number] [address] [place] [address] Aug, Bipolar 1 disorder, mixed F3 1.60 [facility] [address] [facility] [id number] [address] [place] [address] Aug, Allergic rhinitis J30.9 ; Ce rvicalgia M54.2 and Low back pain M54.5 [facility] [address] [place] [address] Aug, Major depressive disorder, r ecurrent episode, moderate F33.1 [facility] [address] [place] [address] Aug, Sinusitis J32.9 and Tobacco 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 [place] [address] [place] [address] Aug, [place] [address] [address] Aug, Depressive disorder, not els ewhere classified F32.9 ; Hormone replacement therapy Z79.[address] scan, head R93.0 [place] [address] [place] [id number] [address] [place] [address] Aug, Major depressive disorder, r ecurrent episode, moderate F33.1 [place] [address] [place] [address] Jul, Major depressive disorder, r ecurrent episode, moderate F33.1 [place] [address] [place] [id number] [address] [place] [address] Jul, Abdominal pain R10.9 and Hyp ertension I10 [place] [address] [place] [id number] [address] [place] [address] Jul, [place] [address] [address] Jul, Major depressive disorder, r ecurrent episode, moderate F33.1 [facility] [address] [id number] [address] [place] [id number] Jul, [facility] [address] [id number] [address] [place] [id number] Jul, [facility] [address] [id number] [address] [place] [address] Jun, [facility] [address] [id number] [address] [place] [address] Jun, Depressive disorder, not els ewhere classified F32.9 [facility] [address] [facility] [id number] [address] [place] [id number] Jun, [place] [address] [place] [id number] [address] [place] [id number] Jun, [place] [address] [place] [id number] [address] [place] [address] Jun, Arthralgia of hip, unspecifi ed laterality M25.559 ; Bruising, spontaneous R23.3 and Night sweats R61 [facility] [address] [facility] [id number] [address] [place] [address] Jun, [place] [address] [place] [id number] [address] [place] [address] Jun, [facility] [address] [facility] [id number] [address] [place] [address] May, [facility] [address] [place] [id number] [address] [place] [address] May, Myalgia M79.1 and Screening, lipid Z13.220 [place] [address] [facility] [id number] [address] [place] [id number] 10 Apr, 2015 Status post cervical spinal fusion Z98.1 ; Fibromyalgia M79.7 and Unsteady gait R26.81 [place] [address] [place] [id number] [address] [place] [phone] Nov, [facility] [address] [id number] [address] [place] [id number] Nov, [facility] [address] [id number] [address] [place] [phone] October, [facility] [address] [id number] [address] [place] [phone] October, [facility] [address] [id number] [address] [place] [id number] October, [facility] [address] [id number] [address] [place] [address] October, [facility] [address] [id number] [address] [place] [id number] October, [facility] [address] [id number] [address] [place] [address] October, Dysuria 788.1 ; Nausea 787.0 2 and Urinary tract infection 599.0 [facility] [address] [id number] [address] [place] [address] Sep, [facility] [address] [id number] [address] [place] [id number] Sep, [facility] [address] [id number] [address] [place] [address] Aug, [facility] [address] [id number] [address] [place] [id number] Aug, [facility] [address] [id number] [address] [place] [phone] Aug, [facility] [address] [id number] [address] [place] [id number] Aug, [facility] [address] [id number] [address] [place] [phone] Aug, [facility] [address] [id number] [facility] [place] [address] 19 Aug, 2014 [facility] [address] [id number] [address] [place] [address], [place] [address] 19 Aug, 2014 [facility] [address] [id number] [address] [place] [address], [place] [address] 19 Aug, 2014 [facility] [address] [id number] [address] [place] [address], [place] [address] 19 Aug, 2014 [facility] [address] [id number] [address] [place] [address], [place] [address] 18 Aug, 2014 [facility] [address] [id number] [address] [place] [address], [place] [id number] 18 Aug, 2014 [facility] [address] [id number] [address] [place] [address], [place] [id number] 13 Aug, 2014 [facility] [address] [id number] [address] [place] [address], [place] [address] 13 Aug, 2014 [facility] [address] [id number] [address] [place] [address], [place] [address] 11 Aug, 2014 [facility] [address] [id number] [address] [place] [address], [place] [address] 11 Aug, 2014 [facility] [address] [id number] [address] [place] [address], [place] [address] 06 Aug, 2014 [facility] [address] [id number] [address] [place] [address], [place] [id number] 06 Aug, 2014 [facility] [address] [id number] [address] [place] [address], [place] [address] 05 Aug, 2014 [facility] [address] [id number] [address] [place] [address], [place] [id number] 05 Aug, 2014 [facility] [address] [id number] [address] [place] [address], [place] [address] 04 Aug, 2014 [facility] [address] [id number] [address] [place] [address], [place] [address] Aug, 2014 [facility] [address] [id number] [address] [place] [address], [place] [address] Aug, [facility] [address] [id number] [address] [place] [address], [place] [id number] Jul, 2014 [facility] [address] [id number] [address] [place] [address], [place] [address] Jul, 2014 [facility] [address] [id number] [address] [place] [address], [place] [id number] Jul, 2014 [facility] [address] [id number] [address] [place] [address], [place] [id number] Jul, 2014 [facility] [address] [id number] [address] [place] [address], [place] [id number] Jul, 2014 [facility] [address] [id number] [address] [place] [address], [place] [id number] Jul, 2014 [facility] [address] [id number] [address] [place] [address], [place] [address] Jul, 2014 [facility] [address] [id number] [address] [place] [address], [place] [address] Jul, 2014 [facility] [address] [id number] [address] [place] [address], [place] [id number] Jul, 2014 [facility] [address] [id number] [address] [place] [address], [place] [id number] Jul, 2014 [facility] [address] [id number] [address] [place] [address], [place] [address] Jul, 2014 [facility] [address] [id number] [address] [place] [address], [place] [id number] Jul, 2014 [facility] [address] [id number] [address] [place] [address], [place] [address] Jul, 2014 [facility] [address] [id number] [address] [place] [address], [place] [id number] Jul, 2014 [facility] [address] [id number] [address] [place] [address], [place] [address] Jun, [facility] [address] [id number] [address] [place] [address], [place] [id number] Jun, [facility] [address] [id number] [address] [place] [address], [place] [id number] Jun, [facility] [address] [id number] [address] [place] [address], [place] [address] Jun, [facility] [address] [id number] [address] [place] [address], [place] [id number] Jun, [facility] [address] [id number] [address] [place] [address], [place] [id number] Jun, [facility] [address] [id number] [address] [place] [address], [place] [address] May, [facility] [address] [id number] [address] [place] [address], [place] [address] May, [facility] [address] [id number] [address] [place] [address], [place] [address] May, [facility] [address] [id number] [address] [place] [address], [place] [address] May, [facility] [address] [id number] [address] [place] [address], [place] [address] May, [facility] [address] [id number] [address] [place] [address], [place] [address] May, [facility] [address] [id number] [address] [place] [address], [place] [address] Apr, [facility] [address] [id number] [address] [place] [address], [place] [address] Apr, [facility] [address] [id number] [address] [place] [address], [place] [address] Apr, [facility] [address] [id number] [address] [place] [address], [place] [address] Apr, [facility] [address] [id number] [address] [place] [address], [place] [address] Apr, [facility] [address] [id number] [address] [place] [address], [place] [id number] Apr, [facility] [address] [id number] [address] [place] [address], [place] [address] Mar, [facility] [address] [id number] [address] [place] [address], [place] [address] Mar, [facility] [address] [id number] [address] [place] [address], [place] [address] Mar, [facility] [address] [id number] [address] [place] [address], [place] [address] Mar, [facility] [address] [id number] [address] [place] [address], [place] [address] Mar, [facility] [address] [id number] [address] [place] [id number] Mar, [facility] [address] [id number] [address] [place] [address], [place] [address] Mar, [facility] [address] [id number] [address] [place] [id number] Mar, [facility] [address] [id number] [address] [place] [id number] Mar, [facility] [address] [id number] [address] [place] [id number] Mar, [facility] [address] [id number] [address] [place] [address], [place] [address] Mar, [facility] [address] [id number] [address] [place] [id number] Mar, [facility] [address] [id number] [address] [place] [address], [place] [address] Feb, [facility] [address] [id number] [facility] [place] [address] 29 Feb, 2014 [facility] [address] [id number] [address] [place] [address], [place] [id number] 29 Feb, 2014 [facility] [address] [id number] [address] [place] [address], [place] [address] Feb, [facility] [address] [id number] [address] [place] [address], [place] [address] Feb, [facility] [address] [id number] [address] [place] [address], [place] [address] Feb, [facility] [address] [id number] [address] [place] [address], [place] [address] Feb, [facility] [address] [id number] [address] [place] [address], [place] [id number] Jan, [facility] [address] [id number] [address] [place] [address], [place] [id number] Jan, [facility] [address] [id number] [address] [place] [address], [place] [id number] Jan, [facility] [address] [id number] [address] [place] [address], [place] [id number] Dec, [facility] [address] [id number] [address] [place] [address], [place] [id number] Dec, [facility] [address] [id number] [address] [place] [address], [place] [id number] Dec, [facility] [address] [id number] [address] [place] [address], [place] [id number] Dec, [facility] [address] [id number] [address] [place] [address], [place] [id number] Sep, [facility] [address] [id number] [address] [place] [address], [place] [id number] Sep, [facility] [address] [id number] [address] [place] [address], [place] [id number] Sep, [facility] [address] [id number] [address] [place] [address], [place] [id number] Sep, [facility] [address] [id number] [address] [place] [address], [place] [id number] Sep, [facility] [address] [id number] [address] [place] [address], [place] [id number] Sep, [facility] [address] [id number] [address] [place] [address], [place] [id number] Sep, [facility] [address] [id number] [address] [place] [address], [place] [id number] Sep, [facility] [address] [id number] [address] [place] [address], [place] [id number] Aug, [facility] [address] [id number] [address] [place] [address], [place] [id number] Aug, [facility] [address] [id number] [address] [place] [address], [place] [id number] May, [facility] [address] [id number] [address] [place] [address], [place] [id number] May, [facility] [address] [id number] [address] [place] [address], [place] [id number] Apr, [facility] [address] [id number] [address] [place] [address], [place] [id number] Apr, [facility] [address] [id number] [address] [place] [address], [place] [id number] Apr, [facility] [address] [id number] [address] [place] [address], [place] [id number] Apr, [facility] [address] [id number] [address] [place] [address], [place] [id number] Apr, [facility] [address] [id number] [address] [place] [address], [place] [id number] Apr, [facility] [address] [id number] [place] [address] 18 May, 2012 [facility] [address] [id number] [address] [place] [address], [place] [id number] 18 May, 2012 [facility] [address] [id number] [address] [place] [address], [place] [id number] 15 May, 2012 [facility] [address] [id number] [address] [place] [address], [place] [id number] 15 May, 2012 [facility] [address] [id number] [address] [place] [address], [place] [id number] 13 May, 2012 [facility] [address] [id number] [address] [place] [address], [place] [id number] 13 May, 2012 [facility] [address] [id number] [address] [place] [address], [place] [id number] 13 Apr, 2012 [facility] [address] [id number] [address] [place] [address], [place] [id number] 13 Apr, 2012 [facility] [address] [id number] [address] [place] [address], [place] [id number] 08 Apr, 2012 [facility] [address] [id number] [address] [place] [address], [place] [id number] 08 Apr, 2012 [facility] [address] [id number] [address] [place] [address], [place] [id number] 08 Apr, 2012 [facility] [address] [id number] [address] [place] [address], [place] [id number] Apr, [facility] [address] [id number] [address] [place] [id number] Apr, [facility] [address] [id number] [address] [place] [address], [place] [id number] Apr, [facility] [address] [id number] [address] [place] [address], [place] [id number] Apr, [facility] [address] [id number] [address] [place] [id number] Apr, [facility] [address] [id number] [address] [place] [address], [place] [id number] Mar, [facility] [address] [id number] [address] [place] [address], [place] [id number] Mar, [facility] [address] [id number] [address] [place] [address], [place] [id number] Mar, [facility] [address] [id number] [address] [place] [address], [place] [id number] Mar, [facility] [address] [id number] [address] [place] [address], [place] [id number] Mar, [facility] [address] [id number] [address] [place] [address], [place] [id number] Mar, [facility] [address] [id number] [address] [place] [address], [place] [id number] Mar, [facility] [address] [id number] [address] [place] [address], [place] [id number] Mar, [facility] [address] [id number] [address] [place] [address], [place] [id number] Mar, [facility] [address] [id number] [address] [place] [address], [place] [id number] 25 Feb, 2012 [facility] [address] [id number] [address] [place] [address], [place] [id number] 16 Feb, 2012 [facility] [address] [id number] [address] [place] [address], [place] [id number] Feb, [facility] [address] [id number] [address] [place] [address], [place] [id number] Jan, [facility] [address] [id number] [address] [place] [address], [place] [id number] Jan, [facility] [address] [id number] [address] [place] [address], [place] [id number] Jan, [facility] [address] [id number] [address] [place] [address], [place] [id number] Jan, [facility] [address] [id number] [address] [place] [address], [place] [id number] Jan, [facility] [address] [id number] [address] [place] [address], [place] [id number] Jan, [facility] [address] [id number] [address] [place] [address], [place] [id number] 16 Jan, 2012 [facility] [address] [id number] [address] [place] [address], [place] [id number] Jan, [facility] [address] [id number] [address] [place] [address], [place] [id number] Jan, [facility] [address] [id number] [address] [place] [address], [place] [id number] Jan, [facility] [address] [id number] [address] [place] [address], [place] [id number] Dec, [facility] [address] [id number] [address] [place] [address], [place] [id number] Dec, [facility] [address] [id number] [address] [place] [address], [place] [id number] Dec, [facility] [address] [id number] [address] [place] [address], [place] [id number] Dec, [facility] [address] [id number] [address] [place] [address], [place] [id number] Nov, [facility] [address] [id number] [address] [place] [address], [place] [id number] Nov, [facility] [address] [id number] [address] [place] [address], [place] [id number] Nov, [facility] [address] [id number] [address] [place] [address], [place] [id number] October, [facility] [address] [id number] [address] [place] [address], [place] [id number] October, [facility] [address] [id number] [address] [place] [id number] October, [facility] [address] [id number] [address] [place] [id number] October, [facility] [address] [id number] [address] [place] [id number] October, [facility] [address] [id number] [address] [place] [id number] October, [facility] [address] [id number] [address] [place] [id number] Aug, [facility] [address] [id number] [address] [place] [id number] Mar, [facility] [address] [id number] [address] [place] [id number] Nov, [facility] [address] [id number] [address] [place] [id number] May, [facility] [address] [id number] [address] [place] [id number] May, [facility] [address] [id number] [address] [place] [id number] Apr, [facility] [address] [id number] [address] [place] [id number] Mar, [facility] [address] [id number] [address] [place] [id number] Mar, IMMUNIZATIONS No Known Immunizations SOCIAL HISTORY Never Assessed REASON FOR VISIT PLAN OF CARE VITAL SIGNS MEDICATIONS Medication Instructions Dosage Frequency Start Date End Date Duration S alexandr Fetzima 120 mg Orally Once a day [...]
--- OUTSIDE RECORDS SUMMARY | 2019-06-19 05:43 | XMS REPORT ---
Author Author Sydnie MORTON Organization [facility] Address [address] [place] [address] Care Team Providers Care Pattern Assembler Name Role Phone JOHN MORTON Unavailable PROBLEMS Type Condition ICD9-CM Code WDE91-NE Code Onset Dates Condition S tatus SNOMED Code Problem Hormone replacement therapy Z79.890 Ac tive 039911567 Problem Abnormal CT scan, head R93.0 Active 404064122 Problem Sensorineural hearing loss (SNHL) of both ears H90 .3 Active 525997085 Problem History of colon polyps Z86.010 Active 450450178 Problem Bruising, spontaneous R23.3 Active 636882648 Problem Generalized anxiety disorder F41.1 A ctive 94659308 Problem Arthralgia of hip, unspecified laterality M25.559 Active 43927723 Problem Hematuria, unspecified type R31.9 Ac tive 10208011 Problem Imbalance R26.89 Active 493243503 Problem Hammer toe of right foot M20.41 Activ e 211980324 Problem Plantar wart of right foot B07.0 Act mitchell [id number] Problem Sciatica of left side M54.32 Active 60591388 Problem Hyperlipidemia, unspecified hyperlipidemia type E7 8.5 Active 65418207 Problem Hypertension I10 Active 7435032 3 Problem Night sweats R61 Active 6998885 0 Problem Fibromyalgia M79.7 Active 4294255 7 Problem Major depressive disorder, recurrent episode, moderate F33.1 Active 027864621 Problem Acute left-sided low back pain with left-sided sciatica M54.42 Active 292665768 Problem Bladder spasm N32.89 Active 785813 006 Problem Gastritis without bleeding, unspecified chronicity, unspecified gastritis type K29.70 Active 154205666 Problem Bipolar 1 disorder, mixed F31.60 Acti ve 47509092 Problem Grief F43.20 Active 43178724 Problem Other chronic pain G89.29 Active 8 0291054 Problem Allergic rhinitis J30.9 Active 61 850389 Problem Hot flashes due to menopause N95.1 A ctive 224035882 Problem Ataxia R27.0 Active 14553319 Problem Hearing loss, unspecified laterality H91.90 Active 49484876 ALLERGIES No Information ENCOUNTERS Encounter Location Date Diagnosis [facility] [address] [facility] [id number] [address] [place] [address] Dec, [facility] [address] [id number] [address] [place] [address] Nov, [facility] [address] [id number] [address] [place] [address] Nov, [facility] [address] [facility] [id number] [address] [place] [address] Nov, [facility] [address] [facility] [id number] [address] [place] [address] October, [facility] [address] [facility] [id number] [address] [place] [address] October, [facility] [address] [facility] [id number] [address] [place] [address] October, Bipolar 1 disorder, mixed F3 1.60 [facility] [address] [facility] [id number] [address] [place] [address] October, [facility] [address] [facility] [id number] [address] [place] [address] October, [facility] [address] [facility] [id number] [address] [place] [address] October, Bipolar 1 disorder, mixed F3 1.60 [facility] [address] [facility] [id number] [address] [place] [address] Sep, Bipolar 1 disorder, mixed F3 1.60 [facility] [address] [facility] [id number] [address] [place] [address] Sep, Other chronic pain G89.29 [facility] [address] [facility] [id number] [address] [place] [address] Sep, [facility] [address] [facility] [id number] [address] [place], [place] [address] Sep, Bipolar 1 disorder, mixed F3 1.60 [facility] [address] [facility] [id number] [address] [place] [address] Sep, Allergic rhinitis J30.9 and Sciatica of left side M54.32 [facility] [address] [facility] [id number] [address] [place] [address] Sep, Bipolar 1 disorder, mixed F3 1.60 [facility] [address] [facility] [id number] [address] [place], [place] [address] Sep, Bipolar 1 disorder, mixed F3 1.60 and Generalized anxiety disorder F41.1 [facility] [address] [facility] [id number] [address] [place] [address] Aug, [facility] [address] [facility] [id number] [address] [place] [address] Aug, Bipolar 1 disorder, mixed F3 1.60 [facility] [address] [facility] [id number] [address] [place] [address] Aug, Bipolar 1 disorder, mixed F3 1.60 [facility] [address] [facility] [id number] [address] [place] [address] Aug, [facility] [address] [facility] [id number] [address] [place] [address] Aug, Generalized anxiety disorder F41.1 [facility] [address] [facility] [id number] [address] [place] [address] Aug, Bipolar 1 disorder, mixed F3 1.60 [facility] [address] [facility] [id number] [address] [place] [address] Aug, Plantar wart of right foot B 07.0 [facility] [address] [facility] [id number] [address] [place] [address] Aug, Bipolar 1 disorder, mixed F3 1.60 [facility] [address] [facility] [id number] [address] [place] [address] Jul, Bipolar 1 disorder, mixed F3 1.60 [facility] [address] [facility] [id number] [address] [place] [address] Jul, [facility] [address] [facility] [id number] [address] [place] [address] 14 Jul, 2017 Bipolar 1 disorder, mixed F3 1.60 [facility] [address] [facility] [id number] [address] [place] [address] 09 Jul, 2017 Generalized anxiety disorder F41.1 [facility] [address] [facility] [id number] [address] [place] [address] 07 Jul, 2017 Bipolar 1 disorder, mixed F3 1.60 [facility] [address] [facility] [id number] [address] [place] [address] 07 Jul, 2017 Acute left-sided low back pa in with left-sided sciatica M54.42 [facility] [address] [facility] [id number] [address] [place] [address] 05 Jul, 2017 Coccydynia M53.3 [facility] [address] [facility] [id number] [address] [place] [address] Jun, Bipolar 1 disorder, mixed F3 1.60 [facility] [address] [facility] [id number] [address] [place] [address] Jun, Acute nasopharyngitis J00 [facility] [address] [facility] [id number] [address] [place] [address] Jun, Bipolar 1 disorder, mixed F3 1.60 [facility] [address] [facility] [id number] [address] [place] [address] Jun, Fibromyalgia M79.7 [facility] [address] [facility] [id number] [address] [place] [address] Jun, Bipolar 1 disorder, mixed F3 1.60 [place] [address] [address] 08 Jun, 2017 Fibromyalgia M79.7 and Bipol ar 1 disorder, mixed F31.60 [place] [address] [address] May, Bipolar 1 disorder, mixed F3 1.60 ; Generalized anxiety disorder F41.1 and 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 [address] [address] 14 May, 2017 Cough R05 and Body aches R[address] [facility] [place] [address] [address] 10 May, 2017 Bladder spasm N32.89 [address] Acu te cystitis without hematuria N30.00 [place] [address] [address] May, Bipolar 1 disorder, mixed F3 1.60 [place] [address] [address] Apr, [place] [address] [address] Apr, Major depressive disorder, r ecurrent episode, moderate F33.1 and Encounter for immunization Z23 [place] [address] [address] Apr, Bipolar 1 disorder, mixed F3 1.60 [place] [address] [address] Apr, Bipolar 1 disorder, mixed F3 1.60 [place] [address] [address] 16 Apr, 2017 Bipolar 1 disorder, mixed F3 1.60 [place] [address] [place] [address] [place] [address] 13 Apr, 2017 Yeast vaginitis B37.3 [facility] [id number] [place] [address] 09 Apr, 2017 Bipolar 1 disorder, mixed F3 1.60 [facility] [address] [place] [id number] [address] [place] [address] 07 Apr, 2017 Cellulitis L03.[address] for immunization Z23 [facility] [address] [place] [address] Apr, Bipolar 1 disorder, mixed F3 1.60 [facility] [address] [address] Mar, Bipolar 1 disorder, mixed F3 1.60 [place] [address] [address] Mar, Bipolar 1 disorder, mixed F3 1.60 [facility] [address] [address] Mar, Imbalance R26.89 and Encount er for immunization Z23 [facility] [address] [place] [id number] [address] [place] [address] Mar, Generalized anxiety disorder F41.1 [facility] [address] [address] Mar, Bipolar 1 disorder, mixed F3 1.60 [facility] [address] [address] Mar, Generalized anxiety disorder F41.1 [facility] [address] [address] Mar, Bipolar 1 disorder, mixed F3 1.60 [facility] [address] [place] [id number] [address] [place] [address] Mar, Bipolar 1 disorder, mixed F3 1.60 [facility] [address] [place] [address] Feb, Bipolar 1 disorder, mixed F3 1.60 [place] [address] [place] [id number] [address] [place] [address] Feb, Bipolar 1 disorder, mixed F3 1.60 and Generalized anxiety disorder F41.1 [facility] [address] [place] [id number] [address] [place] [address] Feb, Gastritis without bleeding, unspecified chronicity, unspecified gastritis type K29.70 ; Hammer toe of right foot M20.41 and Other viral warts B07.8 [place] [address] [facility] [id number] [address] [place] [address] 20 Feb, 2017 Bipolar 1 disorder, mixed F3 1.60 [place] [address] [place] [id number] [address] [place] [address] 13 Feb, 2017 Bipolar 1 disorder, mixed F3 1.60 [place] [address] [place] [id number] [address] [place] [address] 05 Feb, 2017 Bipolar 1 disorder, mixed F3 1.60 [place] [address] [place] [id number] [address] [place] [address] Jan, Encounter for screening mamm ogram for breast cancer Z12.31 ; Other viral warts B07.8 and Allergic rhinitis J30.9 [place] [address] [place] [id number] [address] [place] [address] Jan, Bipolar 1 disorder, mixed F3 1.60 [place] [address] [facility] [id number] [address] [place] [address] Jan, Bipolar 1 disorder, mixed F3 1.60 [place] [address] [place] [id number] [address] [place] [address] Jan, [place] [address] [place] [id number] [address] [place] [address] Jan, Bipolar 1 disorder, mixed F3 1.60 [place] [address] [place] [id number] [address] [place] [address] Jan, Bipolar 1 disorder, mixed F3 1.60 [place] [address] [place] [id number] [address] [place] [address] Jan, Allergic rhinitis J30.9 ; He maturia R31.9 and Colon cancer screening Z12.11 [place] [address] [place] [id number] [address] [place] [address] Dec, Bipolar 1 disorder, mixed F3 1.60 [place] [address] [place] [id number] [address] [place] [address] Dec, Bipolar 1 disorder, mixed F3 1.60 ; Generalized anxiety disorder F41.1 and 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 [place] [address] [place] [id number] [place] [address] Dec, Bipolar 1 disorder, mixed F3 1.60 [place] [address] [place] [id number] [address] [place] [address] Dec, Bipolar 1 disorder, mixed F3 1.60 [place] [address] [place] [id number] [address] [place] [address] Dec, Bipolar 1 disorder, mixed F3 1.60 [place] [address] [place] [id number] [address] [place] [address] Dec, Low back pain M54.5 and Recu rrent urinary tract infection N39.0 [place] [address] [place] [id number] [address] [place] [address] Nov, Bipolar 1 disorder, mixed F3 1.60 [place] [address] [place] [id number] [address] [place] [address] Nov, Bipolar 1 disorder, mixed F3 1.60 [place] [address] [place] [id number] [address] [place] [address] Nov, Bipolar 1 disorder, mixed F3 1.60 [place] [address] [place] [id number] [address] [place] [address] Nov, Bipolar 1 disorder, mixed F3 1.60 [place] [address] [address] Nov, [place] [address] [place] [address] Nov, Anesthesia of skin R20.0 ; F requent UTI N39.0 ; Tobacco abuse Z72.0 and Colon cancer screening Z12.11 [place] [address] [address] Nov, Bipolar 1 disorder, mixed F3 1.60 [place] [address] [place] [address] October, Bipolar 1 disorder, mixed F3 1.60 [place] [address] [address] October, Bipolar 1 disorder, mixed F3 1.60 [place] [address] [address] October, Bipolar 1 disorder, mixed F3 1.60 [place] [address] [place] [id number] October, Bipolar 1 disorder, mixed F3 1.60 [place] [address] [address] October, Bipolar 1 disorder, mixed F3 1.60 [place] [address] [address] October, Cervicalgia M54.2 and Bipola r 1 disorder, mixed F31.60 [place] [id number] October, Hypertension I10 ; Hyperlipi demia, unspecified hyperlipidemia type E78.5 and Family history of thyroid disease Z83.[address] [address] October, [place] [address] [address] October, Hypertension I10 ; Hyperlipi demia, unspecified hyperlipidemia type E78.5 and Family history of thyroid problem Z83.49 [place] [address] [place] [id number] [address] [place] [address] October, Bipolar 1 disorder, mixed F3 1.60 [place] [address] [address] Sep, Bipolar 1 disorder, mixed F3 1.60 [place] [address] [address] Sep, Bipolar 1 disorder, mixed F3 1.60 [place] [address] [address] Sep, Bipolar 1 disorder, mixed F3 1.60 [place] [address] [address] Sep, History of colon polyps Z86. 010 and Hematochezia K92.1 [place] [address] [address] Sep, Major depressive disorder, r ecurrent episode, moderate F33.1 [place] [address] [address] Sep, Bipolar 1 disorder, mixed F3 1.60 [place] [address] [place] [id number] [address] [place] [address] Aug, Hot flashes due to menopause N95.1 [place] [address] [place] [id number] [address] [place] [address] Aug, Bipolar 1 disorder, mixed F3 1.60 [place] [address] [place] [id number] [address] [place] [address] Aug, [place] [address] [address] Aug, Bipolar 1 disorder, mixed F3 1.60 [place] [address] [address] Aug, Bipolar 1 disorder, mixed F3 1.60 [place] [address] [address] Aug, Hot flashes due to menopause N95.1 ; Cervicalgia M54.2 and Ataxia R27.0 [place] [address] [address] Jul, Bipolar 1 disorder, mixed F3 1.60 [place] [address] [place] [address] Jul, Bipolar 1 disorder, mixed F3 1.60 [place] [address] [address] Jul, Bipolar 1 disorder, mixed F3 1.60 [place] [address] [address] Jul, Bipolar 1 disorder, mixed F3 1.60 [place] [address] [address] Jul, Bipolar 1 disorder, mixed F3 1.60 [place] [address] [address] Jul, Cervicalgia M54.2 ; Tremor R 25.1 ; Hearing abnormally acute, unspecified laterality H93.239 ; Alopecia L65.9 ; Encounter for immunization Z23 and Family history of thyroid disease Z83.49 [place] [address] [address] Jul, Bipolar 1 disorder, mixed F3 1.60 [place] [address] [address] Jun, [place] [address] [address] Jun, Hearing disorder, unspecifie d laterality H93.299 [facility] [address] [id number] [address] [place], [place] [address] Jun, Bipolar 1 disorder, mixed F3 1.60 [facility] [address] [id number] [address] [place] [address] Jun, Bipolar 1 disorder, mixed F3 1.60 [facility] [address] [id number] [address] [place] [address] Jun, Allergic rhinitis J30.9 [facility] [address] [id number] [address] [place] [address] Jun, Bipolar 1 disorder, mixed F3 1.60 [facility] [address] [id number] [address] [place] [address] Jun, Bipolar 1 disorder, mixed F3 1.60 [facility] [address] [id number] [address] [place] [address] Jun, Allergic rhinitis J30.9 [facility] [address] [id number] [address] [place] [address] Jun, Allergic rhinitis J30.9 [facility] [address] [id number] [address] [place] [address] Jun, Bipolar 1 disorder, mixed F3 1.60 [facility] [address] [facility] [id number] [address] [place] [address] May, Bipolar 1 disorder, mixed F3 1.60 [facility] [address] [id number] [address] [place] [address] May, Bipolar 1 disorder, mixed F3 1.60 [facility] [address] [facility] [id number] [address] [place] [address] May, [facility] [address] [facility] [id number] [address] [place] [address] May, Bipolar 1 disorder, mixed F3 1.60 [facility] [address] [facility] [id number] [address] [place] [address] May, Bipolar 1 disorder, mixed F3 1.60 [facility] [address] [facility] [id number] [address] [place] [address] May, [facility] [address] [facility] [id number] [address] [place] [address] May, [facility] [address] [facility] [id number] [address] [place] [address] May, [facility] [address] [facility] [id number] [address] [place] [address] May, Abdominal pain, unspecified location R10.9 [facility] [address] [facility] [id number] [address] [place] [address] May, [facility] [address] [place] [id number] [place] [address] Apr, Hematuria R31.9 ; Ataxia R27 .0 and Hearing loss, unspecified laterality H91.90 [facility] [address] [facility] [id number] [address] [place] [address] Apr, Bipolar 1 disorder, mixed F3 1.[address] [facility] [address] [facility] [id number] [address] [place] [address] Apr, Acute effusion of both middl e ears H65.193 [facility] [address] [facility] [id number] [address] [place] [address] Apr, Hematuria R31.9 and Pyelonep hritis N12 [facility] [address] [facility] [id number] [address] [place] [id number] Apr, [facility] [address] [place] [id number] [address] [place] [phone] Mar, Bipolar 1 disorder, mixed F3 1.60 [facility] [address] [facility] [id number] [address] [place] [id number] Mar, [place] [address] [place] [id number] [address] [place] [id number] Mar, Bipolar 1 disorder, mixed F3 1.60 [place] [address] [place] [id number] [address] [place], [place] [id number] Mar, Bipolar 1 disorder, mixed F3 1.60 [place] [address] [place] [id number] [address] [place] [address] Mar, Encounter for immunization Z 23 and Gastritis without bleeding, unspecified chronicity, unspecified gastritis type K29.70 [place] [address] [place] [id number] [address] [place] [id number] Mar, Bipolar 1 disorder, mixed F3 1.60 and Grief F43.20 [place] [address] [place] [id number] [address] [place] [id number] Mar, Gastritis without bleeding, unspecified chronicity, unspecified gastritis type K29.70 [place] [id number] [place] [id number] Mar, Bipolar 1 disorder, mixed F3 1.60 [place] [address] [place] [id number] [address] [place], [place] [id number] Mar, Gastritis without bleeding, unspecified chronicity, unspecified gastritis type K29.70 [place] [address] [place] [id number] [address] [place] [id number] Mar, [place] [address] [place] [id number] [address] [place], [place] [id number] Feb, Bipolar 1 disorder, mixed F3 1.60 [place] [address] [facility] [id number] [address] [place] [id number] Feb, Bipolar 1 disorder, mixed F3 1.60 and Grief F43.20 [place] [address] [place] [id number] [address] [place] [id number] Feb, Gastritis without bleeding, unspecified chronicity, unspecified gastritis type K29.70 [place] [address] [facility] [id number] [address] [place] [id number] 14 Feb, 2016 Bipolar 1 disorder, mixed F3 1.[address] [facility] [address] [place] [id number] [address] [place], [place] [id number] Feb, Gastroesophageal reflux dise ase, esophagitis presence not specified K21.9 [facility] [address] [place] [id number] [address] [place] [address] Jan, Bipolar 1 disorder, mixed F3 1.60 [facility] [address] [place] [id number] [address] [place] [id number] Jan, Bipolar 1 disorder, mixed F3 1.60 and Unsteady gait R26.81 [place] [address] [place] [id number] [address] [place], [place] [id number] Jan, Bipolar 1 disorder, mixed F3 1.60 [facility] [facility] [address] [id number] [address] [place] [address] Jan, Bipolar 1 disorder, mixed F3 1.60 and 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 [place] [address] [place] [address] [id number] [address] [place] [address] Jan, Bipolar 1 disorder, mixed F3 1.60 [facility] [address] [id number] [address] [place] [address] Jan, Bipolar 1 disorder, mixed F3 1.60 [facility] [address] [id number] [address] [place], [place] [address] Jan, Bipolar 1 disorder, mixed F3 1.60 ; Grief F43.20 and 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 [place] [address] [id number] [address] [place] [address] Jan, Bipolar 1 disorder, mixed F3 1.60 [facility] [address] [id number] [address] [place] [address] Dec, [facility] [address] [id number] [address] [place] [address] Dec, Bipolar 1 disorder, mixed F3 1.60 ; Vitamin D deficiency, unspecified E55.9 ; H/O allergic rhinitis Z87.09 ; Other chronic pain G89.29 and Dorsalgia, unspecified M54.9 [facility] [address] [facility] [id number] [address] [place] [address] Dec, [facility] [address] [facility] [id number] [address] [place] [address] Dec, Bipolar 1 disorder, mixed F3 1.60 [place] [address] [facility] [id number] [address] [place] [address] Dec, Major depressive disorder, r ecurrent episode, moderate F33.1 [place] [address] [facility] [id number] [address] [place] [address] Dec, Major depressive disorder, r ecurrent episode, moderate F33.1 [place] [address] [id number] [address] [place] [address] Nov, [place] [address] [facility] [id number] [address] [place] [address] Nov, Bipolar 1 disorder, mixed F3 1.60 [place] [address] [facility] [id number] [address] [place] [address] Nov, Major depressive disorder, r ecurrent episode, moderate F33.1 [place] [address] [facility] [id number] [address] [place] [address] Nov, Cervicalgia M54.2 ; Arthralg ia of hip, unspecified laterality M25.559 ; Allergic rhinitis J30.9 and Hormone replacement therapy Z79.[address] [facility] [address] [facility] [id number] [address] [place] [address] Nov, Other seasonal allergic rhin itis J30.2 [facility] [address] [facility] [id number] [address] [place] [address] October, Major depressive disorder, r ecurrent episode, moderate F33.1 [place] [address] [facility] [id number] [address] [place] [address] October, Major depressive disorder, r ecurrent episode, moderate F33.1 and Arthralgia of hip, unspecified laterality M25.559 [place] [address] [facility] [id number] [address] [place] [address] October, Grief F43.20 ; Hypertension I10 ; Hyperlipidemia, unspecified hyperlipidemia type E78.5 ; Other chronic pain G89.29 and Allergic rhinitis, unspecified allergic rhinitis type J30.9 [place] [address] [facility] [id number] [address] [place] [address] October, Major depressive disorder, r ecurrent episode, moderate F33.1 [place] [address] [facility] [id number] [address] [place] [address] Sep, Major depressive disorder, r ecurrent episode, moderate F33.1 [place] [address] [facility] [id number] [address] [place] [address] Sep, [place] [address] [facility] [id number] [address] [place] [address] Sep, Major depressive disorder, r ecurrent episode, moderate F33.1 [place] [address] [place] [id number] [address] [place] [address] Sep, Grief F43.20 [place] [address] [facility] [id number] [address] [place] [address] Aug, Major depressive disorder, r ecurrent episode, moderate F33.1 [place] [address] [facility] [id number] [address] [place] [address] Aug, Bipolar 1 disorder, mixed F3 1.60 [place] [address] [facility] [id number] [address] [place] [address] Aug, Allergic rhinitis J30.9 ; Ce rvicalgia M54.2 and Low back pain M54.5 [place] [address] [place] [id number] [address] [place] [address] Aug, Major depressive disorder, r ecurrent episode, moderate F33.1 [facility] [address] [facility] [id number] [address] [place] [address] Aug, Sinusitis J32.9 and Tobacco 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 [facility] [address] [id number] [address] [place] [address] Aug, [facility] [address] [address] Aug, Depressive disorder, not els ewhere classified F32.9 ; Hormone replacement therapy Z79.[address] scan, head R93.0 [facility] [address] [id number] [address] [place] [address] Aug, Major depressive disorder, r ecurrent episode, moderate F33.1 [facility] [id number] [place] [address] Jul, Major depressive disorder, r ecurrent episode, moderate F33.1 [facility] [address] [id number] [address] [place] [address] Jul, Abdominal pain R10.9 and Hyp ertension I10 [facility] [address] [id number] [address] [place] [address] Jul, [facility] [id number] [place] [address] Jul, Major depressive disorder, r ecurrent episode, moderate F33.1 [facility] [address] [id number] [address] [place] [address] Jul, [facility] [address] [id number] [address] [place] [address] Jul, [facility] [address] [id number] [address] [place] [address] Jun, [facility] [address] [id number] [address] [place] [address] Jun, Depressive disorder, not els ewhere classified F32.9 [facility] [address] [id number] [address] [place] [address] Jun, [facility] [address] [facility] [id number] [address] [place] [address] Jun, [facility] [address] [id number] [address] [place] [address] Jun, Arthralgia of hip, unspecifi ed laterality M25.559 ; Bruising, spontaneous R23.3 and Night sweats R61 [facility] [address] [id number] [address] [place] [address] Jun, [facility] [address] [id number] [address] [place] [address] Jun, [facility] [address] [facility] [id number] [address] [place] [address] May, [facility] [address] [facility] [id number] [address] [place] [address] May, Myalgia M79.1 and Screening, lipid Z13.220 [facility] [address] [facility] [id number] [address] [place] [address] Apr, Status post cervical spinal fusion Z98.1 ; Fibromyalgia M79.7 and Unsteady gait R26.81 [facility] [address] [id number] [address] [place] [address] Nov, [facility] [address] [id number] [address] [place] [address] Nov, [facility] [address] [facility] [id number] [address] [place] [address] October, [facility] [address] [facility] [id number] [address] [place] [address] October, [facility] [address] [id number] [address] [place] [address] October, [facility] [address] [id number] [address] [place] [address] October, [facility] [address] [id number] [address] [place] [address] October, [facility] [address] [id number] [address] [place] [address] October, Dysuria 788.1 ; Nausea 787.0 2 and Urinary tract infection 599.0 [facility] [address] [id number] [address] [place] [address] Sep, [facility] [address] [id number] [address] [place] [address] Sep, [facility] [address] [id number] [address] [place] [address] Aug, [facility] [address] [id number] [address] [place] [address] Aug, [facility] [address] [id number] [address] [place] [address] Aug, [facility] [address] [id number] [address] [place] [address] Aug, [facility] [address] [id number] [address] [place] [address] Aug, [facility] [address] [id number] [address] [place] [address] Aug, [facility] [address] [id number] [address] [place] [address] Aug, [facility] [address] [id number] [address] [place] [address] Aug, [facility] [address] [id number] [address] [place] [address] Aug, [facility] [address] [id number] [address] [place] [address], [place] [address] 18 Aug, 2014 [facility] [address] [id number] [address] [place] [address], [place] [address] 18 Aug, 2014 [facility] [address] [id number] [address] [place] [address], [place] [address] 13 Aug, 2014 [facility] [address] [id number] [address] [place] [address], [place] [address] 13 Aug, 2014 [facility] [address] [id number] [address] [place] [address], [place] [address] 11 Aug, 2014 [facility] [address] [id number] [address] [place] [address], [place] [address] 11 Aug, 2014 [facility] [address] [id number] [address] [place] [address], [place] [address] 06 Aug, 2014 [facility] [address] [id number] [address] [place] [address], [place] [address] 06 Aug, 2014 [facility] [address] [id number] [address] [place] [address], [place] [address] 05 Aug, 2014 [facility] [address] [id number] [address] [place] [address], [place] [address] 05 Aug, 2014 [facility] [address] [id number] [address] [place] [address], [place] [address] 04 Aug, 2014 [facility] [address] [id number] [address] [place] [address], [place] [address] Aug, [facility] [address] [id number] [address] [place] [address], [place] [address] Aug, [facility] [address] [id number] [address] [place] [address], [place] [address] Jul, [facility] [address] [id number] [address] [place] [address], [place] [address] Jul, [facility] [address] [id number] [address] [place] [address], [place] [address] Jul, 2014 [facility] [address] [id number] [address] [place] [address], [place] [address] Jul, 2014 [facility] [address] [id number] [address] [place] [address], [place] [address] Jul, 2014 [facility] [address] [id number] [address] [place] [address], [place] [address] Jul, 2014 [facility] [address] [id number] [address] [place] [address], [place] [address] Jul, 2014 [facility] [address] [id number] [address] [place] [address], [place] [address] Jul, 2014 [facility] [address] [id number] [address] [place] [address], [place] [address] Jul, 2014 [facility] [address] [id number] [address] [place] [address], [place] [address] Jul, 2014 [facility] [address] [id number] [address] [place] [address], [place] [address] Jul, [facility] [address] [id number] [address] [place] [address], [place] [address] Jul, 2014 [facility] [address] [id number] [address] [place] [address], [place] [address] Jul, [facility] [address] [id number] [address] [place] [address], [place] [address] Jul, [facility] [address] [id number] [address] [place] [address], [place] [address] Jun, [facility] [address] [id number] [address] [place] [address], [place] [address] Jun, [facility] [address] [id number] [address] [place] [address] Jun, [facility] [address] [id number] [address] [place] [address] Jun, [facility] [address] [id number] [address] [place] [address], [place] [address] Jun, [facility] [address] [id number] [address] [place] [address], [place] [address] Jun, [facility] [address] [id number] [address] [place] [address], [place] [address] May, [facility] [address] [id number] [address] [place] [address], [place] [address] May, [facility] [address] [id number] [address] [place] [address], [place] [address] May, [facility] [address] [id number] [address] [place] [address], [place] [address] May, [facility] [address] [id number] [address] [place] [address], [place] [address] May, [facility] [address] [id number] [address] [place] [address], [place] [address] May, [facility] [address] [id number] [address] [place] [address], [place] [address] Apr, [facility] [address] [id number] [address] [place] [address], [place] [address] Apr, [facility] [address] [id number] [address] [place] [address], [place] [address] Apr, [facility] [address] [id number] [address] [place] [address], [place] [address] Apr, [facility] [address] [id number] [address] [place] [address], [place] [address] Apr, [facility] [address] [id number] [address] [place] [address], [place] [address] Apr, [facility] [address] [id number] [address] [place] [address], [place] [address] 29 Mar, 2014 [facility] [address] [id number] [address] [place] [address], [place] [address] Mar, [facility] [address] [id number] [address] [place] [address], [place] [address] Mar, [facility] [address] [id number] [address] [place] [address], [place] [address] Mar, [facility] [address] [id number] [address] [place] [address], [place] [address] Mar, [facility] [address] [id number] [address] [place] [address], [place] [address] Mar, [facility] [address] [id number] [address] [place] [address], [place] [address] Mar, [facility] [address] [id number] [address] [place] [address], [place] [address] Mar, [facility] [address] [id number] [address] [place] [address], [place] [address] Mar, [facility] [address] [id number] [address] [place] [address], [place] [address] Mar, [facility] [address] [id number] [address] [place] [address], [place] [address] Mar, [facility] [address] [id number] [address] [place] [address], [place] [address] Mar, [facility] [address] [id number] [address] [place] [address] 30 Feb, 2013 [facility] [address] [id number] [address] [place] [address] 29 Feb, 2013 [facility] [address] [id number] [address] [place] [address], [place] [address] 29 Feb, 2013 [facility] [address] [id number] [address] [place] [address], [place] [address] 23 Feb, 2013 [facility] [address] [id number] [address] [place] [address], [place] [address] 23 Feb, 2013 [facility] [address] [id number] [facility] [address] Feb, [facility] [address] [id number] [address] [place] [address], [place] [address] Feb, [facility] [address] [id number] [address] [place] [address], [place] [address] Jan, [facility] [address] [id number] [address] [place] [address], [place] [address] Jan, [facility] [address] [id number] [address] [place] [address], [place] [address] Jan, [facility] [address] [id number] [address] [place] [address], [place] [address] Dec, [facility] [address] [id number] [address] [place] [address], [place] [address] Dec, [facility] [address] [id number] [address] [place] [address], [place] [address] Dec, [facility] [address] [id number] [address] [place] [address], [place] [address] Dec, [facility] [address] [id number] [address] [place] [address], [place] [address] Sep, [facility] [address] [id number] [address] [place] [address], [place] [address] Sep, [facility] [address] [id number] [address] [place] [address], [place] [address] Sep, [facility] [address] [id number] [address] [place] [address], [place] [address] Sep, [facility] [address] [id number] [address] [place] [address], [place] [address] Sep, [facility] [address] [id number] [address] [place] [address], [place] [address] Sep, [facility] [address] [id number] [address] [place] [address], [place] [address] Sep, [facility] [address] [id number] [address] [place] [address], [place] [address] Sep, [facility] [address] [id number] [address] [place] [address], [place] [address] Aug, [facility] [address] [id number] [address] [place] [address], [place] [address] Aug, [facility] [address] [id number] [address] [place] [address], [place] [address] May, [facility] [address] [id number] [address] [place] [address], [place] [address] May, [facility] [address] [id number] [address] [place] [address], [place] [address] Apr, [facility] [address] [id number] [address] [place] [address], [place] [address] Apr, [facility] [address] [id number] [address] [place] [address], [place] [address] Apr, [facility] [address] [id number] [address] [place] [address], [place] [address] Apr, [facility] [address] [id number] [address] [place] [address], [place] [address] Apr, [facility] [address] [id number] [address] [place] [address], [place] [address] Apr, [facility] [address] [id number] [address] [place] [address], [place] [address] May, [facility] [address] [id number] [address] [place] [address], [place] [address] May, [facility] [address] [id number] [address] [place] [address], [place] [address] May, [facility] [address] [id number] [address] [place] [address], [place] [address] May, [facility] [address] [id number] [address] [place] [id number] 13 May, 2012 [facility] [address] [id number] [address] [place] [address], [place] [address] 13 May, 2012 [facility] [address] [id number] [address] [place] [id number] 13 Apr, 2012 [facility] [address] [id number] [address] [place] [address], [place] [address] Apr, [facility] [address] [id number] [address] [place] [id number] 08 Apr, 2012 [facility] [address] [id number] [address] [place] [address], [place] [address] Apr, [facility] [address] [id number] [address] [place] [address], [place] [address] Apr, [facility] [address] [id number] [address] [place] [address] Apr, [facility] [address] [id number] [address] [place] [address], [place] [address] Apr, [facility] [address] [id number] [address] [place] [address], [place] [address] Apr, [facility] [address] [id number] [address] [place] [id number] Apr, [facility] [address] [id number] [address] [place] [id number] Apr, [facility] [address] [id number] [address] [place] [address] Mar, [facility] [address] [id number] [address] [place] [address] Mar, [facility] [address] [id number] [address] [place] [address], [place] [address] Mar, [facility] [address] [id number] [address] [place] [address] Mar, [facility] [address] [id number] [address] [place] [address], [place] [address] Mar, [facility] [address] [id number] [address] [place] [address], [place] [address] Mar, [facility] [address] [id number] [address] [place] [address], [place] [address] Mar, [facility] [address] [id number] [address] [place] [address], [place] [address] Mar, [facility] [address] [id number] [address] [place] [address], [place] [address] Mar, [facility] [address] [id number] [address] [place] [address], [place] [address] 25 Feb, 2012 [facility] [address] [id number] [address] [place] [address], [place] [address] 16 Feb, 2012 [facility] [address] [id number] [address] [place] [address], [place] [address] Feb, [facility] [address] [id number] [address] [place] [address], [place] [address] Jan, [facility] [address] [id number] [address] [place] [address], [place] [address] Jan, [facility] [address] [id number] [address] [place] [address], [place] [address] Jan, [facility] [address] [id number] [address] [place] [address], [place] [address] Jan, [facility] [address] [id number] [address] [place] [address], [place] [address] Jan, [facility] [address] [id number] [address] [place] [address], [place] [address] Jan, [facility] [address] [id number] [address] [place] [address], [place] [address] 16 Jan, 2012 [facility] [address] [id number] [address] [place] [address], [place] [address] Jan, [facility] [address] [id number] [address] [place] [address], [place] [id number] Jan, [facility] [address] [id number] [address] [place] [address], [place] [address] Jan, [facility] [address] [id number] [address] [place] [address], [place] [address] Dec, [facility] [address] [id number] [address] [place] [address], [place] [address] Dec, [facility] [address] [id number] [address] [place] [address], [place] [address] Dec, [facility] [address] [id number] [address] [place] [address], [place] [address] Dec, [facility] [address] [id number] [address] [place] [address], [place] [address] Nov, [facility] [address] [id number] [address] [place] [address], [place] [address] Nov, [facility] [address] [id number] [address] [place] [address], [place] [address] Nov, [facility] [address] [id number] [address] [place] [address], [place] [address] October, [facility] [address] [id number] [address] [place] [address], [place] [address] October, [facility] [address] [id number] [address] [place] [address], [place] [address] October, [facility] [address] [id number] [address] [place] [address], [place] [address] October, [facility] [address] [id number] [address] [place] [address], [place] [address] October, [facility] [address] [id number] [address] [place] [address], [place] [address] October, [facility] [address] [id number] [address] [place] [id number] 23 Aug, 2011 [facility] [address] [id number] [address] [place] [id number] 10 Mar, 2011 [facility] [address] [id number] [address] [place] [id number] Nov, [facility] [address] [facility] [id number] [address] [place] [id number] May, [facility] [address] [facility] [id number] [address] [place] [id number] May, [facility] [address] [facility] [id number] [address] [place] [id number] Apr, [facility] [address] [facility] [id number] [address] [place] [id number] Mar, [facility] [address] [facility] [id number] [address] [place] [phone] Mar, IMMUNIZATIONS No Known Immunizations SOCIAL HISTORY Never Assessed REASON FOR VISIT BH f/u PLAN OF CARE Activity Details Follow Up 1 Week Reason: F/U VITAL SIGNS MEDICATIONS Unknown Medications RESULTS No Results PROCEDURES Procedure Date Ordered Result Body Site [facility] VISIT MENTAL HEALTH ESTAB PT Apr 05, 2017 Psychotherapy, patient &/family, 45 minutes, established patient Apr 05, 2017 visit needs to be added to the same day medical Apr 05, 2017 INSTRUCTIONS MEDICATIONS ADMINISTERED No Known [...]
--- OUTSIDE RECORDS SUMMARY | 2019-06-19 05:43 | XMS REPORT ---
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 Name Role Phone JOHN MORTON Unavailable PROBLEMS Type Condition ICD9-CM Code VEM81-RW Code Onset Dates Condition S tatus SNOMED Code Problem Hormone replacement therapy Z79.890 Ac tive 157676178 Problem Abnormal CT scan, head R93.0 Active 142132577 Problem Sensorineural hearing loss (SNHL) of both ears H90 .3 Active 199900862 Problem History of colon polyps Z86.010 Active 449639477 Problem Bruising, spontaneous R23.3 Active 696889811 Problem Generalized anxiety disorder F41.1 A ctive 03558330 Problem Arthralgia of hip, unspecified laterality M25.559 Active 09333124 Problem Hematuria, unspecified type R31.9 Ac tive 14801156 Problem Imbalance R26.89 Active 298963195 Problem Hammer toe of right foot M20.41 Activ e 807619402 Problem Plantar wart of right foot B07.0 Act mitchell [id number] Problem Sciatica of left side M54.32 Active 54536862 Problem Hyperlipidemia, unspecified hyperlipidemia type E7 8.5 Active 69063857 Problem Hypertension I10 Active 9139013 3 Problem Night sweats R61 Active 4569965 0 Problem Fibromyalgia M79.7 Active 1593629 7 Problem Major depressive disorder, recurrent episode, moderate F33.1 Active 412425569 Problem Acute left-sided low back pain with left-sided sciatica M54.42 Active 540209222 Problem Bladder spasm N32.89 Active 971606 006 Problem Gastritis without bleeding, unspecified chronicity, unspecified gastritis type K29.70 Active 129934549 Problem Bipolar 1 disorder, mixed F31.60 Acti ve 02506831 Problem Grief F43.20 Active 23125955 Problem Other chronic pain G89.29 Active 8 9850298 Problem Allergic rhinitis J30.9 Active 61 800570 Problem Hot flashes due to menopause N95.1 A ctive 985730891 Problem Ataxia R27.0 Active 82070057 Problem Hearing loss, unspecified laterality H91.90 Active 31088998 ALLERGIES No Information ENCOUNTERS Encounter Location Date Diagnosis [facility] [address] [facility] [id number] [address] [place] [id number] Dec, [facility] [address] [id number] [address] [place] [id number] Nov, [facility] [address] [id number] [address] [place] [id number] Nov, [facility] [address] [facility] [id number] [address] [place] [id number] Nov, [facility] [address] [facility] [id number] [address] [place] [id number] October, [facility] [address] [facility] [id number] [address] [place] [id number] October, [facility] [address] [facility] [id number] [address] [place] [id number] October, Bipolar 1 disorder, mixed F3 1.60 [facility] [address] [facility] [id number] [address] [place] [id number] October, [facility] [address] [facility] [id number] [address] [place] [id number] October, [facility] [address] [facility] [id number] [address] [place] [id number] October, Bipolar 1 disorder, mixed F3 1.60 [facility] [address] [facility] [id number] [address] [place] [id number] Sep, Bipolar 1 disorder, mixed F3 1.60 [facility] [address] [facility] [id number] [address] [place] [address] Sep, Other chronic pain G89.29 [facility] [address] [facility] [id number] [address] [place] [id number] Sep, [facility] [address] [facility] [id number] [address] [place] [address] Sep, Bipolar 1 disorder, mixed F3 1.60 [facility] [address] [facility] [id number] [address] [place] [id number] Sep, Allergic rhinitis J30.9 and Sciatica of left side M54.32 [facility] [address] [facility] [id number] [address] [place] [id number] Sep, Bipolar 1 disorder, mixed F3 1.60 [facility] [address] [facility] [id number] [address] [place] [address] Sep, Bipolar 1 disorder, mixed F3 1.60 and Generalized anxiety disorder F41.1 [facility] [address] [facility] [id number] [address] [place] [id number] Aug, [facility] [address] [facility] [id number] [address] [place] [address] Aug, Bipolar 1 disorder, mixed F3 1.60 [facility] [address] [facility] [id number] [address] [place] [id number] Aug, Bipolar 1 disorder, mixed F3 1.60 [facility] [address] [facility] [id number] [address] [place] [id number] Aug, [facility] [address] [facility] [id number] [address] [place] [id number] Aug, Generalized anxiety disorder F41.1 [facility] [address] [facility] [id number] [address] [place] [id number] Aug, Bipolar 1 disorder, mixed F3 1.60 [facility] [address] [facility] [id number] [address] [place] [id number] Aug, Plantar wart of right foot B 07.0 [facility] [address] [facility] [id number] [address] [place] [address] Aug, Bipolar 1 disorder, mixed F3 1.60 [facility] [address] [facility] [id number] [address] [place] [address] Jul, Bipolar 1 disorder, mixed F3 1.60 [facility] [address] [facility] [id number] [address] [place] [id number] Jul, [facility] [address] [facility] [id number] [address] [place] [id number] 14 Jul, 2017 Bipolar 1 disorder, mixed F3 1.60 [facility] [address] [facility] [id number] [address] [place] [id number] 09 Jul, 2017 Generalized anxiety disorder F41.1 [facility] [address] [facility] [id number] [address] [place] [id number] 07 Jul, 2017 Bipolar 1 disorder, mixed F3 1.60 [facility] [address] [facility] [id number] [address] [place] [id number] 07 Jul, 2017 Acute left-sided low back pa in with left-sided sciatica M54.42 [facility] [address] [facility] [id number] [address] [place] [id number] 05 Jul, 2017 Coccydynia M53.3 [facility] [address] [facility] [id number] [address] [place] [id number] Jun, Bipolar 1 disorder, mixed F3 1.60 [facility] [address] [facility] [id number] [address] [place] [id number] Jun, Acute nasopharyngitis J00 [facility] [address] [facility] [id number] [address] [place] [id number] Jun, Bipolar 1 disorder, mixed F3 1.60 [facility] [address] [facility] [id number] [address] [place] [address] Jun, Fibromyalgia M79.7 [facility] [address] [facility] [id number] [address] [place] [address] Jun, Bipolar 1 disorder, mixed F3 1.60 [facility] [address] [id number] 08 Jun, 2017 Fibromyalgia M79.7 and Bipol ar 1 disorder, mixed F31.60 [place] [address] [address] May, Bipolar 1 disorder, mixed F3 1.60 ; Generalized anxiety disorder F41.1 and 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 [place] [address] [address] May, Bipolar 1 disorder, mixed F3 1.60 [facility] [address] [id number] 14 May, 2017 Cough R05 and Body aches R52 [facility] [place] [address] [address] 10 May, 2017 Bladder spasm N32.89 [address] Acu te cystitis without hematuria N30.00 [place] [address] [id number] May, Bipolar 1 disorder, mixed F3 1.60 [place] [address] [address] Apr, [place] [address] [address] Apr, Major depressive disorder, r ecurrent episode, moderate F33.1 and Encounter for immunization Z23 [place] [address] [address] Apr, Bipolar 1 disorder, mixed F3 1.60 [place] [address] [address] Apr, Bipolar 1 disorder, mixed F3 1.60 [place] [address] [address] 16 Apr, 2017 Bipolar 1 disorder, mixed F3 1.60 [place] [address] [place] [address] [place] [address] 13 Apr, 2017 Yeast vaginitis B37.3 [facility] [address] [place] [id number] 09 Apr, 2017 Bipolar 1 disorder, mixed F3 1.60 [facility] [address] [place] [id number] [address] [place] [id number] 07 Apr, 2017 Cellulitis L03.[address] for immunization Z23 [facility] [address] [place] [address] Apr, Bipolar 1 disorder, mixed F3 1.60 [facility] [address] [address] Mar, Bipolar 1 disorder, mixed F3 1.60 [place] [address] [address] Mar, Bipolar 1 disorder, mixed F3 1.60 [facility] [address] [id number] Mar, Imbalance R26.89 and Encount er for immunization Z23 [facility] [address] [place] [id number] [address] [place] [id number] Mar, Generalized anxiety disorder F41.1 [facility] [address] [address] Mar, Bipolar 1 disorder, mixed F3 1.60 [facility] [address] [address] Mar, Generalized anxiety disorder F41.1 [facility] [address] [address] Mar, Bipolar 1 disorder, mixed F3 1.60 [facility] [address] [place] [id number] [address] [place] [address] Mar, Bipolar 1 disorder, mixed F3 1.60 [facility] [address] [place] [address] Feb, Bipolar 1 disorder, mixed F3 1.60 [place] [address] [place] [id number] [address] [place] [address] Feb, Bipolar 1 disorder, mixed F3 1.60 and Generalized anxiety disorder F41.1 [facility] [address] [place] [id number] [address] [place] [address] Feb, Gastritis without bleeding, unspecified chronicity, unspecified gastritis type K29.70 ; Hammer toe of right foot M20.41 and Other viral warts B07.8 [place] [address] [facility] [id number] [address] [place] [id number] 20 Feb, 2017 Bipolar 1 disorder, mixed F3 1.60 [place] [address] [place] [id number] [address] [place] [address] 13 Feb, 2017 Bipolar 1 disorder, mixed F3 1.60 [place] [address] [place] [id number] [address] [place] [id number] 05 Feb, 2017 Bipolar 1 disorder, mixed F3 1.60 [place] [address] [place] [id number] [address] [place] [address] Jan, Encounter for screening mamm ogram for breast cancer Z12.31 ; Other viral warts B07.8 and Allergic rhinitis J30.9 [place] [address] [place] [id number] [address] [place] [address] Jan, Bipolar 1 disorder, mixed F3 1.60 [place] [address] [facility] [id number] [address] [place] [address] Jan, Bipolar 1 disorder, mixed F3 1.60 [place] [address] [place] [id number] [address] [place] [address] Jan, [place] [address] [place] [id number] [address] [place] [address] Jan, Bipolar 1 disorder, mixed F3 1.60 [place] [address] [place] [id number] [address] [place] [address] Jan, Bipolar 1 disorder, mixed F3 1.60 [place] [address] [place] [id number] [address] [place] [address] Jan, Allergic rhinitis J30.9 ; He maturia R31.9 and Colon cancer screening Z12.11 [place] [address] [place] [id number] [address] [place] [address] Dec, Bipolar 1 disorder, mixed F3 1.60 [place] [address] [place] [id number] [address] [place] [address] Dec, Bipolar 1 disorder, mixed F3 1.60 ; Generalized anxiety disorder F41.1 and Other penitentiary (current) drug therapy Z79.899 [place] [address] [place] [id number] [place] [address] Dec, Bipolar 1 disorder, mixed F3 1.60 [place] [address] [place] [id number] [address] [place] [address] Dec, Bipolar 1 disorder, mixed F3 1.60 [place] [address] [place] [id number] [address] [place] [address] Dec, Bipolar 1 disorder, mixed F3 1.60 [place] [address] [place] [id number] [address] [place] [address] Dec, Low back pain M54.5 and Recu rrent urinary tract infection N39.0 [place] [address] [place] [id number] [address] [place] [address] Nov, Bipolar 1 disorder, mixed F3 1.60 [place] [address] [place] [id number] [address] [place] [address] Nov, Bipolar 1 disorder, mixed F3 1.60 [place] [address] [place] [id number] [address] [place] [address] Nov, Bipolar 1 disorder, mixed F3 1.60 [place] [address] [place] [id number] [address] [place] [id number] Nov, Bipolar 1 disorder, mixed F3 1.60 [place] [address] [address] Nov, [place] [address] [place] [id number] Nov, Anesthesia of skin R20.0 ; F requent UTI N39.0 ; Tobacco abuse Z72.0 and Colon cancer screening Z12.11 [place] [address] [address] Nov, Bipolar 1 disorder, mixed F3 1.60 [place] [address] [place] [address] October, Bipolar 1 disorder, mixed F3 1.60 [place] [address] [address] October, Bipolar 1 disorder, mixed F3 1.60 [place] [address] [address] October, Bipolar 1 disorder, mixed F3 1.60 [place] [address] [place] [id number] October, Bipolar 1 disorder, mixed F3 1.60 [place] [address] [address] October, Bipolar 1 disorder, mixed F3 1.60 [place] [address] [address] October, Cervicalgia M54.2 and Bipola r 1 disorder, mixed F31.60 [place] [id number] October, Hypertension I10 ; Hyperlipi demia, unspecified hyperlipidemia type E78.5 and Family history of thyroid disease Z83.[address] [address] October, [place] [address] [address] October, Hypertension I10 ; Hyperlipi demia, unspecified hyperlipidemia type E78.5 and Family history of thyroid problem Z83.49 [place] [address] [place] [id number] [address] [place] [address] October, Bipolar 1 disorder, mixed F3 1.60 [place] [address] [address] Sep, Bipolar 1 disorder, mixed F3 1.60 [place] [address] [address] Sep, Bipolar 1 disorder, mixed F3 1.60 [place] [address] [address] Sep, Bipolar 1 disorder, mixed F3 1.60 [place] [address] [address] Sep, History of colon polyps Z86. 010 and Hematochezia K92.1 [place] [address] [address] Sep, Major depressive disorder, r ecurrent episode, moderate F33.1 [place] [address] [address] Sep, Bipolar 1 disorder, mixed F3 1.60 [place] [address] [place] [id number] [address] [place] [address] Aug, Hot flashes due to menopause N95.1 [place] [address] [place] [id number] [address] [place] [address] Aug, Bipolar 1 disorder, mixed F3 1.60 [place] [address] [place] [id number] [address] [place] [address] Aug, [place] [address] [address] Aug, Bipolar 1 disorder, mixed F3 1.60 [place] [address] [address] Aug, Bipolar 1 disorder, mixed F3 1.60 [place] [address] [address] Aug, Hot flashes due to menopause N95.1 ; Cervicalgia M54.2 and Ataxia R27.0 [place] [address] [address] Jul, Bipolar 1 disorder, mixed F3 1.60 [place] [address] [place] [address] Jul, Bipolar 1 disorder, mixed F3 1.60 [place] [address] [address] Jul, Bipolar 1 disorder, mixed F3 1.60 [place] [address] [address] Jul, Bipolar 1 disorder, mixed F3 1.60 [place] [address] [address] Jul, Bipolar 1 disorder, mixed F3 1.60 [place] [address] [address] Jul, Cervicalgia M54.2 ; Tremor R 25.1 ; Hearing abnormally acute, unspecified laterality H93.239 ; Alopecia L65.9 ; Encounter for immunization Z23 and Family history of thyroid disease Z83.49 [place] [address] [address] Jul, Bipolar 1 disorder, mixed F3 1.60 [place] [address] [address] Jun, [place] [address] [address] Jun, Hearing disorder, unspecifie d laterality H93.299 [facility] [address] [id number] [address] [place] [address] Jun, Bipolar 1 disorder, mixed F3 1.60 [facility] [address] [id number] [address] [place] [address] Jun, Bipolar 1 disorder, mixed F3 1.60 [facility] [address] [id number] [address] [place] [id number] Jun, Allergic rhinitis J30.9 [facility] [address] [id number] [address] [place] [address] Jun, Bipolar 1 disorder, mixed F3 1.60 [facility] [address] [id number] [address] [place] [id number] Jun, Bipolar 1 disorder, mixed F3 1.60 [facility] [address] [id number] [address] [place] [address] Jun, Allergic rhinitis J30.9 [facility] [address] [id number] [address] [place] [address] Jun, Allergic rhinitis J30.9 [facility] [address] [id number] [address] [place] [address] Jun, Bipolar 1 disorder, mixed F3 1.60 [facility] [address] [facility] [id number] [address] [place] [address] May, Bipolar 1 disorder, mixed F3 1.60 [facility] [address] [id number] [address] [place] [address] May, Bipolar 1 disorder, mixed F3 1.60 [facility] [address] [facility] [id number] [address] [place] [address] May, [facility] [address] [facility] [id number] [address] [place] [address] May, Bipolar 1 disorder, mixed F3 1.60 [facility] [address] [facility] [id number] [address] [place] [id number] May, Bipolar 1 disorder, mixed F3 1.60 [facility] [address] [facility] [id number] [address] [place] [id number] May, [facility] [address] [facility] [id number] [address] [place] [address] May, [facility] [address] [facility] [id number] [address] [place] [address] May, [facility] [address] [facility] [id number] [address] [place] [address] May, Abdominal pain, unspecified location R10.9 [facility] [address] [facility] [id number] [address] [place] [address] May, [facility] [address] [place] [id number] [place] [address] Apr, Hematuria R31.9 ; Ataxia R27 .0 and Hearing loss, unspecified laterality H91.90 [facility] [address] [facility] [id number] [address] [place] [address] Apr, Bipolar 1 disorder, mixed F3 1.60 [facility] [address] [facility] [id number] [address] [place] [address] Apr, Acute effusion of both middl e ears H65.193 [facility] [address] [facility] [id number] [address] [place] [id number] Apr, Hematuria R31.9 and Pyelonep hritis N12 [facility] [address] [facility] [id number] [address] [place] [address] Apr, [facility] [address] [place] [id number] [address] [place] [address] Mar, Bipolar 1 disorder, mixed F3 1.60 [facility] [address] [facility] [id number] [address] [place] [address] Mar, [place] [address] [place] [id number] [address] [place] [address] Mar, Bipolar 1 disorder, mixed F3 1.60 [place] [address] [place] [id number] [address] [place] [address] Mar, Bipolar 1 disorder, mixed F3 1.60 [place] [address] [place] [id number] [address] [place] [address] Mar, Encounter for immunization Z 23 and Gastritis without bleeding, unspecified chronicity, unspecified gastritis type K29.70 [place] [address] [place] [id number] [address] [place] [address] Mar, Bipolar 1 disorder, mixed F3 1.60 and Grief F43.20 [place] [address] [place] [id number] [address] [place] [address] Mar, Gastritis without bleeding, unspecified chronicity, unspecified gastritis type K29.70 [place] [address] [place] [address] Mar, Bipolar 1 disorder, mixed F3 1.60 [place] [address] [place] [id number] [address] [place], [place] [address] Mar, Gastritis without bleeding, unspecified chronicity, unspecified gastritis type K29.70 [place] [address] [place] [id number] [place] [id number] Mar, [place] [address] [place] [id number] [address] [place], [place] [address] Feb, Bipolar 1 disorder, mixed F3 1.60 [place] [address] [facility] [id number] [address] [place] [id number] Feb, Bipolar 1 disorder, mixed F3 1.60 and Grief F43.20 [place] [address] [place] [id number] [place] [id number] Feb, Gastritis without bleeding, unspecified chronicity, unspecified gastritis type K29.70 [place] [address] [facility] [id number] [address] [place] [id number] 14 Feb, 2016 Bipolar 1 disorder, mixed F3 1.60 [facility] [address] [place] [id number] [place], [place] [address] Feb, Gastroesophageal reflux dise ase, esophagitis presence not specified K21.9 [facility] [address] [place] [id number] [place] [address] Jan, Bipolar 1 disorder, mixed F3 1.60 [facility] [address] [place] [id number] [place] [id number] Jan, Bipolar 1 disorder, mixed F3 1.60 and Unsteady gait R26.81 [place] [address] [place] [id number] [place], [place] [address] Jan, Bipolar 1 disorder, mixed F3 1.60 [facility] [address] [place] [id number] [address] [place] [id number] Jan, Bipolar 1 disorder, mixed F3 1.60 and Other penitentiary (current) drug therapy Z79.899 [place] [address] [place] [id number] [place] [id number] Jan, Bipolar 1 disorder, mixed F3 1.60 [facility] [address] [place] [id number] [place] [id number] Jan, Bipolar 1 disorder, mixed F3 1.60 [facility] [address] [place] [id number] [place], [place] [address] Jan, Bipolar 1 disorder, mixed F3 1.60 ; Grief F43.20 and Other penitentiary (current) drug therapy Z79.899 [place] [address] [place] [id number] [place], [place] [address] Jan, Bipolar 1 disorder, mixed F3 1.60 [facility] [address] [place] [id number] [place] [id number] Dec, [facility] [address] [place] [id number] [place] [id number] Dec, Bipolar 1 disorder, mixed F3 1.60 ; Vitamin D deficiency, unspecified E55.9 ; H/O allergic rhinitis Z87.09 ; Other chronic pain G89.29 and Dorsalgia, unspecified M54.9 [facility] [address] [facility] [id number] [address] [place] [id number] Dec, [facility] [address] [facility] [id number] [address] [place] [id number] Dec, Bipolar 1 disorder, mixed F3 1.60 [place] [address] [facility] [id number] [address] [place] [id number] Dec, Major depressive disorder, r ecurrent episode, moderate F33.1 [place] [address] [facility] [id number] [address] [place] [id number] Dec, Major depressive disorder, r ecurrent episode, moderate F33.1 [place] [address] [place] [id number] [address] [place] [id number] Nov, [place] [address] [facility] [id number] [address] [place] [id number] Nov, Bipolar 1 disorder, mixed F3 1.60 [place] [address] [facility] [id number] [address] [place] [id number] Nov, Major depressive disorder, r ecurrent episode, moderate F33.1 [place] [address] [facility] [id number] [address] [place] [address] Nov, Cervicalgia M54.2 ; Arthralg ia of hip, unspecified laterality M25.559 ; Allergic rhinitis J30.9 and Hormone replacement therapy Z79.890 [facility] [address] [facility] [id number] [address] [place] [id number] Nov, Other seasonal allergic rhin itis J30.2 [facility] [address] [facility] [id number] [address] [place] [id number] October, Major depressive disorder, r ecurrent episode, moderate F33.1 [place] [address] [facility] [id number] [address] [place] [id number] October, Major depressive disorder, r ecurrent episode, moderate F33.1 and Arthralgia of hip, unspecified laterality M25.559 [place] [address] [facility] [id number] [address] [place] [id number] October, Grief F43.20 ; Hypertension I10 ; Hyperlipidemia, unspecified hyperlipidemia type E78.5 ; Other chronic pain G89.29 and Allergic rhinitis, unspecified allergic rhinitis type J30.9 [place] [address] [facility] [id number] [address] [place] [id number] October, Major depressive disorder, r ecurrent episode, moderate F33.1 [place] [address] [facility] [id number] [address] [place] [id number] Sep, Major depressive disorder, r ecurrent episode, moderate F33.1 [place] [address] [facility] [id number] [address] [place] [id number] Sep, [place] [address] [facility] [id number] [address] [place] [id number] Sep, Major depressive disorder, r ecurrent episode, moderate F33.1 [place] [address] [place] [id number] [address] [place] [id number] Sep, Grief F43.20 [place] [address] [facility] [id number] [address] [place] [id number] Aug, Major depressive disorder, r ecurrent episode, moderate F33.1 [place] [address] [facility] [id number] [address] [place] [id number] Aug, Bipolar 1 disorder, mixed F3 1.60 [place] [address] [facility] [id number] [address] [place] [id number] Aug, Allergic rhinitis J30.9 ; Ce rvicalgia M54.2 and Low back pain M54.5 [place] [address] [place] [id number] [address] [place] [id number] Aug, Major depressive disorder, r ecurrent episode, moderate F33.1 [facility] [address] [facility] [id number] [address] [place] [id number] Aug, Sinusitis J32.9 and Tobacco 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 [facility] [address] [place] [id number] [address] [place] [id number] Aug, [facility] [address] [address] Aug, Depressive disorder, not els ewhere classified F32.9 ; Hormone replacement therapy Z79.[address] scan, head R93.0 [facility] [address] [place] [id number] [address] [place] [id number] Aug, Major depressive disorder, r ecurrent episode, moderate F33.1 [facility] [id number] [place] [id number] Jul, Major depressive disorder, r ecurrent episode, moderate F33.1 [facility] [address] [place] [id number] [address] [place] [id number] Jul, Abdominal pain R10.9 and Hyp ertension I10 [facility] [address] [place] [id number] [address] [place] [address] Jul, [facility] [id number] [place] [address] Jul, Major depressive disorder, r ecurrent episode, moderate F33.1 [facility] [address] [place] [id number] [address] [place] [id number] Jul, [facility] [address] [place] [id number] [address] [place] [address] Jul, [facility] [address] [place] [id number] [address] [place] [id number] Jun, [facility] [address] [id number] [address] [place] [id number] Jun, Depressive disorder, not els ewhere classified F32.9 [facility] [address] [id number] [address] [place] [address] Jun, [facility] [address] [facility] [id number] [address] [place] [id number] Jun, [facility] [address] [id number] [address] [place] [id number] Jun, Arthralgia of hip, unspecifi ed laterality M25.559 ; Bruising, spontaneous R23.3 and Night sweats R61 [facility] [address] [id number] [address] [place] [id number] Jun, [facility] [address] [place] [id number] [address] [place] [id number] Jun, [facility] [address] [facility] [id number] [address] [place] [id number] May, [facility] [address] [facility] [id number] [address] [place] [id number] May, Myalgia M79.1 and Screening, lipid Z13.220 [facility] [address] [facility] [id number] [address] [place] [id number] Apr, Status post cervical spinal fusion Z98.1 ; Fibromyalgia M79.7 and Unsteady gait R26.81 [facility] [address] [id number] [address] [place] [id number] Nov, [facility] [address] [id number] [address] [place] [address] Nov, [facility] [address] [facility] [id number] [address] [place] [id number] October, [facility] [address] [facility] [id number] [address] [place] [id number] October, [facility] [address] [id number] [address] [place] [id number] October, [facility] [address] [id number] [address] [place] [id number] October, [facility] [address] [id number] [address] [place] [id number] October, [facility] [address] [id number] [address] [place] [id number] October, Dysuria 788.1 ; Nausea 787.0 2 and Urinary tract infection 599.0 [facility] [address] [id number] [address] [place] [id number] Sep, [facility] [address] [id number] [address] [place] [id number] Sep, [facility] [address] [id number] [address] [place] [id number] Aug, [facility] [address] [id number] [address] [place] [id number] Aug, [facility] [address] [id number] [address] [place] [address] Aug, [facility] [address] [id number] [address] [place] [id number] Aug, [facility] [address] [id number] [address] [place] [id number] Aug, [facility] [address] [id number] [address] [place] [id number] Aug, [facility] [address] [id number] [address] [place] [id number] Aug, [facility] [address] [id number] [address] [place] [id number] Aug, [facility] [address] [id number] [address] [place] [id number] Aug, [facility] [address] [id number] [address] [place] [address], [place] [address] 18 Aug, 2014 [facility] [address] [id number] [address] [place] [address], [place] [id number] 18 Aug, 2014 [facility] [address] [id number] [address] [place] [address], [place] [id number] 13 Aug, 2014 [facility] [address] [id number] [address] [place] [address], [place] [id number] 13 Aug, 2014 [facility] [address] [id number] [address] [place] [address], [place] [id number] 11 Aug, 2014 [facility] [address] [id number] [address] [place] [address], [place] [id number] 11 Aug, 2014 [facility] [address] [id number] [address] [place] [address], [place] [id number] 06 Aug, 2014 [facility] [address] [id number] [address] [place] [address], [place] [id number] 06 Aug, 2014 [facility] [address] [id number] [address] [place] [address], [place] [id number] 05 Aug, 2014 [facility] [address] [id number] [address] [place] [address], [place] [id number] 05 Aug, 2014 [facility] [address] [id number] [address] [place] [address], [place] [id number] 04 Aug, 2014 [facility] [address] [id number] [address] [place] [address], [place] [address] Aug, [facility] [address] [id number] [address] [place] [address], [place] [id number] Aug, [facility] [address] [id number] [address] [place] [address], [place] [id number] Jul, [facility] [address] [id number] [address] [place] [address], [place] [id number] Jul, [facility] [address] [id number] [address] [place] [address], [place] [id number] Jul, 2014 [facility] [address] [id number] [address] [place] [address], [place] [id number] Jul, 2014 [facility] [address] [id number] [address] [place] [address], [place] [id number] Jul, 2014 [facility] [address] [id number] [address] [place] [address], [place] [address] Jul, 2014 [facility] [address] [id number] [address] [place] [address], [place] [id number] Jul, 2014 [facility] [address] [id number] [address] [place] [address], [place] [id number] Jul, 2014 [facility] [address] [id number] [address] [place] [address], [place] [address] Jul, 2014 [facility] [address] [id number] [address] [place] [address], [place] [address] Jul, 2014 [facility] [address] [id number] [address] [place] [address], [place] [id number] Jul, [facility] [address] [id number] [address] [place] [address], [place] [id number] Jul, 2014 [facility] [address] [id number] [address] [place] [address], [place] [id number] Jul, [facility] [address] [id number] [address] [place] [address], [place] [address] Jul, [facility] [address] [id number] [address] [place] [address], [place] [id number] Jun, [facility] [address] [id number] [address] [place] [address], [place] [id number] Jun, [facility] [address] [id number] [address] [place] [id number] Jun, [facility] [address] [id number] [address] [place] [id number] Jun, [facility] [address] [id number] [address] [place] [address], [place] [address] Jun, [facility] [address] [id number] [address] [place] [address], [place] [address] Jun, [facility] [address] [id number] [address] [place] [address], [place] [address] May, [facility] [address] [id number] [address] [place] [address], [place] [id number] May, [facility] [address] [id number] [address] [place] [address], [place] [address] May, [facility] [address] [id number] [address] [place] [address], [place] [id number] May, [facility] [address] [id number] [address] [place] [address], [place] [address] May, [facility] [address] [id number] [address] [place] [address], [place] [address] May, [facility] [address] [id number] [address] [place] [address], [place] [id number] Apr, [facility] [address] [id number] [address] [place] [address], [place] [address] Apr, [facility] [address] [id number] [address] [place] [address], [place] [id number] Apr, [facility] [address] [id number] [address] [place] [address], [place] [id number] Apr, [facility] [address] [id number] [address] [place] [address], [place] [id number] Apr, [facility] [address] [id number] [address] [place] [address], [place] [id number] Apr, [facility] [address] [id number] [address] [place] [address], [place] [id number] 29 Mar, 2014 [facility] [address] [id number] [address] [place] [address], [place] [address] Mar, [facility] [address] [id number] [address] [place] [address], [place] [address] Mar, [facility] [address] [id number] [address] [place] [address], [place] [address] Mar, [facility] [address] [id number] [address] [place] [address], [place] [address] Mar, [facility] [address] [id number] [address] [place] [address], [place] [address] Mar, [facility] [address] [id number] [address] [place] [address], [place] [address] Mar, [facility] [address] [id number] [address] [place] [address], [place] [address] Mar, [facility] [address] [id number] [address] [place] [address], [place] [address] Mar, [facility] [address] [id number] [address] [place] [address], [place] [address] Mar, [facility] [address] [id number] [address] [place] [address], [place] [address] Mar, [facility] [address] [id number] [address] [place] [address], [place] [id number] Mar, [facility] [address] [id number] [address] [place] [id number] 30 Feb, 2013 [facility] [address] [id number] [address] [place] [id number] 29 Feb, 2013 [facility] [address] [id number] [address] [place] [address], [place] [address] 29 Feb, 2013 [facility] [address] [id number] [address] [place] [address], [place] [id number] 23 Feb, 2013 [facility] [address] [id number] [address] [place] [address], [place] [id number] 23 Feb, 2013 [facility] [address] [id number] [facility] [place] [address] Feb, [facility] [address] [id number] [address] [place] [address], [place] [address] Feb, [facility] [address] [id number] [address] [place] [address], [place] [address] Jan, [facility] [address] [id number] [address] [place] [address], [place] [address] Jan, [facility] [address] [id number] [address] [place] [address], [place] [address] Jan, [facility] [address] [id number] [address] [place] [address], [place] [address] Dec, [facility] [address] [id number] [address] [place] [address], [place] [id number] Dec, [facility] [address] [id number] [address] [place] [address], [place] [address] Dec, [facility] [address] [id number] [address] [place] [address], [place] [address] Dec, [facility] [address] [id number] [address] [place] [address], [place] [address] Sep, [facility] [address] [id number] [address] [place] [address], [place] [id number] Sep, [facility] [address] [id number] [address] [place] [address], [place] [address] Sep, [facility] [address] [id number] [address] [place] [address], [place] [address] Sep, [facility] [address] [id number] [address] [place] [address], [place] [address] Sep, [facility] [address] [id number] [address] [place] [address], [place] [address] Sep, [facility] [address] [id number] [address] [place] [address], [place] [address] Sep, [facility] [address] [id number] [address] [place] [address], [place] [address] Sep, [facility] [address] [id number] [address] [place] [address], [place] [address] Aug, [facility] [address] [id number] [address] [place] [address], [place] [address] Aug, [facility] [address] [id number] [address] [place] [address], [place] [address] May, [facility] [address] [id number] [address] [place] [address], [place] [address] May, [facility] [address] [id number] [address] [place] [address], [place] [address] Apr, [facility] [address] [id number] [address] [place] [address], [place] [address] Apr, [facility] [address] [id number] [address] [place] [address], [place] [address] Apr, [facility] [address] [id number] [address] [place] [address], [place] [address] Apr, [facility] [address] [id number] [address] [place] [address], [place] [address] Apr, [facility] [address] [id number] [address] [place] [address], [place] [address] Apr, [facility] [address] [id number] [address] [place] [address], [place] [address] May, [facility] [address] [id number] [address] [place] [address], [place] [address] May, [facility] [address] [id number] [address] [place] [address], [place] [address] May, [facility] [address] [id number] [address] [place] [address], [place] [address] May, [facility] [address] [id number] [address] [place] [id number] 13 May, 2012 [facility] [address] [id number] [address] [place] [address], [place] [address] 13 May, 2012 [facility] [address] [id number] [address] [place] [id number] 13 Apr, 2012 [facility] [address] [id number] [address] [place] [address], [place] [address] Apr, [facility] [address] [id number] [address] [place] [id number] 08 Apr, 2012 [facility] [address] [id number] [address] [place] [address], [place] [address] Apr, [facility] [address] [id number] [address] [place] [address], [place] [address] Apr, [facility] [address] [id number] [address] [place] [id number] Apr, [facility] [address] [id number] [address] [place] [address], [place] [id number] Apr, [facility] [address] [id number] [address] [place] [address], [place] [id number] Apr, [facility] [address] [id number] [address] [place] [id number] Apr, [facility] [address] [id number] [address] [place] [id number] Apr, [facility] [address] [id number] [address] [place] [id number] Mar, [facility] [address] [id number] [address] [place] [id number] Mar, [facility] [address] [id number] [address] [place] [address], [place] [id number] Mar, [facility] [address] [id number] [address] [place] [id number] Mar, [facility] [address] [id number] [address] [place] [address], [place] [address] Mar, [facility] [address] [id number] [address] [place] [address], [place] [address] Mar, [facility] [address] [id number] [address] [place] [address], [place] [id number] Mar, [facility] [address] [id number] [address] [place] [address], [place] [id number] Mar, [facility] [address] [id number] [address] [place] [address], [place] [address] Mar, [facility] [address] [id number] [address] [place] [address], [place] [id number] 25 Feb, 2012 [facility] [address] [id number] [address] [place] [address], [place] [id number] 16 Feb, 2012 [facility] [address] [id number] [address] [place] [address], [place] [id number] Feb, [facility] [address] [id number] [address] [place] [address], [place] [id number] Jan, [facility] [address] [id number] [address] [place] [address], [place] [id number] Jan, [facility] [address] [id number] [address] [place] [address], [place] [address] Jan, [facility] [address] [id number] [address] [place] [address], [place] [id number] Jan, [facility] [address] [id number] [address] [place] [address], [place] [id number] Jan, [facility] [address] [id number] [address] [place] [address], [place] [id number] Jan, [facility] [address] [id number] [address] [place] [address], [place] [id number] 16 Jan, 2012 [facility] [address] [id number] [address] [place] [address], [place] [id number] Jan, [facility] [address] [id number] [address] [place] [address], [place] [id number] Jan, [facility] [address] [id number] [address] [place] [address], [place] [address] Jan, [facility] [address] [id number] [address] [place] [address], [place] [id number] Dec, [facility] [address] [id number] [address] [place] [address], [place] [id number] Dec, [facility] [address] [id number] [address] [place] [address], [place] [id number] Dec, [facility] [address] [id number] [address] [place] [address], [place] [address] Dec, [facility] [address] [id number] [address] [place] [address], [place] [id number] Nov, [facility] [address] [id number] [address] [place] [address], [place] [address] Nov, [facility] [address] [id number] [address] [place] [address], [place] [address] Nov, [facility] [address] [id number] [address] [place] [address], [place] [address] October, [facility] [address] [id number] [address] [place] [address], [place] [id number] October, [facility] [address] [id number] [address] [place] [address], [place] [address] October, [facility] [address] [id number] [address] [place] [address], [place] [id number] October, [facility] [facility] [address] [id number] [address] [place] [address], [place] [id number] October, [facility] [address] [id number] [address] [place] [address], [place] [id number] October, [facility] [address] [id number] [address] [place] [id number] Aug, [facility] [address] [id number] [address] [place] [id number] Mar, [facility] [address] [id number] [address] [place] [id number] Nov, [facility] [address] [facility] [id number] [address] [place] [id number] May, [facility] [address] [facility] [id number] [address] [place] [id number] May, [facility] [address] [facility] [id number] [address] [place] [phone] Apr, [facility] [address] [facility] [id number] [address] [place] [phone] Mar, [facility] [address] [facility] [id number] [address] [place] [id number] Mar, IMMUNIZATIONS No Known Immunizations SOCIAL HISTORY Never Assessed REASON FOR VISIT BH f/u PLAN OF CARE Activity Details Follow Up 1 Week Reason: F/U VITAL SIGNS MEDICATIONS Unknown Medications RESULTS No Results PROCEDURES Procedure Date Ordered Result Body Site [facility] VISIT MENTAL HEALTH ESTAB PT Apr 09, 2017 Psychotherapy, patient &/family, 45 minutes, established patient Apr 09, 2017 INSTRUCTIONS MEDICATIONS ADMINISTERED No Known Medications [...]
--- OUTSIDE RECORDS SUMMARY | 2019-06-19 05:44 | XMS REPORT ---
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 Name Role Phone NAHOMY HANCOCK Unavailable PROBLEMS Type Condition ICD9-CM Code LLC58-HL Code Onset Dates Condition S tatus SNOMED Code Problem Hormone replacement therapy Z79.890 Ac tive 321486809 Problem Abnormal CT scan, head R93.0 Active 093556794 Problem Sensorineural hearing loss (SNHL) of both ears H90 .3 Active 860832697 Problem History of colon polyps Z86.010 Active 256142892 Problem Bruising, spontaneous R23.3 Active 742012087 Problem Generalized anxiety disorder F41.1 A ctive 08332741 Problem Arthralgia of hip, unspecified laterality M25.559 Active 99202414 Problem Hematuria, unspecified type R31.9 Ac tive 63846196 Problem Imbalance R26.89 Active 517543406 Problem Hammer toe of right foot M20.41 Activ e 691137410 Problem Plantar wart of right foot B07.0 Act mitchell [id number] Problem Sciatica of left side M54.32 Active 84396902 Problem Hyperlipidemia, unspecified hyperlipidemia type E7 8.5 Active 37754449 Problem Hypertension I10 Active 4419112 3 Problem Night sweats R61 Active 5113098 0 Problem Fibromyalgia M79.7 Active 7681592 7 Problem Major depressive disorder, recurrent episode, moderate F33.1 Active 119028746 Problem Acute left-sided low back pain with left-sided sciatica M54.42 Active 356235605 Problem Bladder spasm N32.89 Active 448585 006 Problem Gastritis without bleeding, unspecified chronicity, unspecified gastritis type K29.70 Active 435020999 Problem Bipolar 1 disorder, mixed F31.60 Acti ve 03432302 Problem Grief F43.20 Active 12334561 Problem Other chronic pain G89.29 Active 8 5313370 Problem Allergic rhinitis J30.9 Active 61 191477 Problem Hot flashes due to menopause N95.1 A ctive 666153108 Problem Ataxia R27.0 Active 78452191 Problem Hearing loss, unspecified laterality H91.90 Active 36500070 ALLERGIES Substance Reaction Event Type Date Status Morphine Sulfate Unknown Drug Allergy Feb, Active Iodine Unknown Drug Allergy Feb, Active Cipro burning stomach Drug Allergy Feb, Active Lyrica 75 Mg Capsule "felt weird" Non Drug Allergy Feb, Act mitchell ENCOUNTERS Encounter Location Date Diagnosis [facility] [address] [facility] [id number] [address] [place] [address] Dec, [facility] [address] [facility] [id number] [address] [place] [address] Nov, [facility] [address] [facility] [id number] [address] [place] [address] October, [facility] [address] [facility] [id number] [address] [place] [phone] October, [facility] [address] [facility] [id number] [address] [place] [address] October, [facility] [address] [facility] [id number] [address] [place] [phone] October, [facility] [address] [facility] [id number] [address] [place] [address] October, Bipolar 1 disorder, mixed F3 1.60 [facility] [address] [facility] [id number] [address] [place] [address] Sep, Bipolar 1 disorder, mixed F3 1.60 [facility] [address] [facility] [id number] [address] [place] [address] Sep, Other chronic pain G89.29 [facility] [address] [facility] [id number] [address] [place] [phone] Sep, [facility] [address] [facility] [id number] [address] [place] [address] Sep, Bipolar 1 disorder, mixed F3 1.60 [facility] [address] [facility] [id number] [address] [place] [address] Sep, Allergic rhinitis J30.9 and Sciatica of left side M54.32 [facility] [address] [id number] [address] [place] [address] Sep, Bipolar 1 disorder, mixed F3 1.60 [facility] [address] [facility] [id number] [address] [place] [address] Sep, Bipolar 1 disorder, mixed F3 1.60 and Generalized anxiety disorder F41.1 [facility] [address] [id number] [address] [place] [address] Aug, [facility] [address] [facility] [id number] [address] [place], [place] [address] Aug, Bipolar 1 disorder, mixed F3 1.60 [facility] [address] [facility] [id number] [address] [place] [address] Aug, Bipolar 1 disorder, mixed F3 1.60 [facility] [address] [facility] [id number] [address] [place] [address] Aug, [facility] [address] [facility] [id number] [address] [place] [address] Aug, Generalized anxiety disorder F41.1 [facility] [address] [facility] [id number] [address] [place] [address] Aug, Bipolar 1 disorder, mixed F3 1.60 [facility] [address] [facility] [id number] [address] [place] [address] Aug, Plantar wart of right foot B 07.0 [facility] [address] [facility] [id number] [address] [place] [address] Aug, Bipolar 1 disorder, mixed F3 1.60 [facility] [address] [facility] [id number] [address] [place] [address] Jul, Bipolar 1 disorder, mixed F3 1.60 [place] [id number] [facility] [id number] [address] [place] [address] Jul, [facility] [address] [facility] [id number] [address] [place] [address] 14 Jul, 2017 Bipolar 1 disorder, mixed F3 1.60 [facility] [address] [place] [id number] [address] [place] [address] Jul, Generalized anxiety disorder F41.1 [facility] [address] [facility] [id number] [address] [place] [address] 07 Jul, 2017 Bipolar 1 disorder, mixed F3 1.60 [place] [address] [place] [id number] [place] [phone] 07 Jul, 2017 Acute left-sided low back pa in with left-sided sciatica M54.42 [place] [address] [place] [id number] [address] [place] [address] 05 Jul, 2017 Coccydynia M53.3 [facility] [address] [facility] [id number] [address] [place] [address] Jun, Bipolar 1 disorder, mixed F3 1.60 [facility] [address] [facility] [id number] [address] [place] [phone] Jun, Acute nasopharyngitis J00 [facility] [address] [facility] [id number] [address] [place] [address] Jun, Bipolar 1 disorder, mixed F3 1.60 [facility] [address] [facility] [id number] [address] [place] [address] Jun, Fibromyalgia M79.7 [facility] [address] [place] [id number] [address] [place] [address] Jun, Bipolar 1 disorder, mixed F3 1.60 [facility] [address] [facility] [id number] [address] [place] [address] Jun, Fibromyalgia M79.7 and Bipol ar 1 disorder, mixed F31.60 [facility] [address] [address] May, Bipolar 1 disorder, mixed F3 1.60 ; Generalized anxiety disorder F41.1 and Other skilled nursing (current) drug therapy Z79.899 [place] [id number] [address] May, Bipolar 1 disorder, mixed F3 1.60 [facility] [address] [address] 14 May, 2017 Cough R05 and Body aches R52 [facility] [address] [address] 10 May, 2017 Bladder spasm N32.89 and Acu te cystitis without hematuria N30.00 [place] [address] [address] 07 May, 2017 Bipolar 1 disorder, mixed F3 1.60 [place] [address] [address] 30 Apr, 2017 [place] [address] [address] Apr, Major depressive disorder, r ecurrent episode, moderate F33.1 and Encounter for immunization Z23 [place] [address] [address] Apr, Bipolar 1 disorder, mixed F3 1.60 [place] [address] [address] Apr, Bipolar 1 disorder, mixed F3 1.60 [place] [address] [address] 16 Apr, 2017 Bipolar 1 disorder, mixed F3 1.60 [place] [address] [address] 13 Apr, 2017 Yeast vaginitis B37.3 [place] [address] [address] Apr, Bipolar 1 disorder, mixed F3 1.60 [facility] [address] [place] [id number] [address] [place] [address] Apr, Cellulitis L03.[address] for immunization Z23 [facility] [address] [place] [id number] [address] [place] [address] Apr, Bipolar 1 disorder, mixed F3 1.60 [facility] [address] [place] [id number] [address] [place] [address] Mar, Bipolar 1 disorder, mixed F3 1.60 [facility] [address] Mar, Bipolar 1 disorder, mixed F3 1.60 [facility] [address] [address] Mar, Imbalance R26.89 and Encount er for immunization Z23 [facility] [address] [place] [id number] [address] [place] [address] Mar, Generalized anxiety disorder F41.1 [facility] [address] [address] Mar, Bipolar 1 disorder, mixed F3 1.60 [facility] [address] [place] [id number] [address] [place] [address] Mar, Generalized anxiety disorder F41.1 [facility] [address] [place] [id number] [address] [place] [address] Mar, Bipolar 1 disorder, mixed F3 1.60 [facility] [address] [place] [id number] [address] [place] [address] Mar, Bipolar 1 disorder, mixed F3 1.60 [facility] [address] [place] [id number] [address] [place] [address] Feb, Bipolar 1 disorder, mixed F3 1.60 [facility] [address] [place] [id number] [address] [place] [address] Feb, Bipolar 1 disorder, mixed F3 1.60 and Generalized anxiety disorder F41.1 [place] [address] [place] [id number] [address] [place] [address] Feb, Gastritis without bleeding, unspecified chronicity, unspecified gastritis type K29.70 ; Hammer toe of right foot M20.41 and Other viral warts B07.8 [place] [address] [place] [id number] [address] [place] [address] Feb, Bipolar 1 disorder, mixed F3 1.60 [place] [address] [place] [id number] [address] [place] [address] Feb, Bipolar 1 disorder, mixed F3 1.60 [place] [address] [place] [id number] [address] [place] [phone] 05 Feb, 2017 Bipolar 1 disorder, mixed F3 1.60 [place] [address] [place] [id number] [address] [place] [address] Jan, Encounter for screening mamm ogram for breast cancer Z12.31 ; Other viral warts B07.8 and Allergic rhinitis J30.9 [place] [address] [place] [id number] [address] [place] [address] Jan, Bipolar 1 disorder, mixed F3 1.60 [place] [address] [place] [id number] [address] [place] [address] Jan, Bipolar 1 disorder, mixed F3 1.60 [place] [address] [place] [id number] [address] [place] [address] Jan, [place] [address] [facility] [id number] [address] [place] [address] Jan, Bipolar 1 disorder, mixed F3 1.60 [place] [address] [place] [id number] [address] [place] [address] Jan, Bipolar 1 disorder, mixed F3 1.60 [place] [address] [place] [id number] [address] [place] [address] Jan, Allergic rhinitis J30.9 ; He maturia R31.9 and Colon cancer screening Z12.11 [place] [address] [place] [id number] [address] [place] [address] Dec, Bipolar 1 disorder, mixed F3 1.60 [place] [address] [place] [id number] [address] [place] [address] Dec, Bipolar 1 disorder, mixed F3 1.60 ; Generalized anxiety disorder F41.1 and 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 [place] [address] [place] [id number] [address] [place] [address] Dec, Bipolar 1 disorder, mixed F3 1.60 [place] [address] [place] [id number] [address] [place] [address] Dec, Bipolar 1 disorder, mixed F3 1.60 [place] [address] [place] [id number] [address] [place] [address] Dec, Bipolar 1 disorder, mixed F3 1.60 [place] [address] [place] [id number] [address] [place] [address] Dec, Low back pain M54.5 and Recu rrent urinary tract infection N39.0 [place] [address] [place] [id number] [address] [place] [address] Nov, Bipolar 1 disorder, mixed F3 1.60 [place] [address] [place] [id number] [address] [place] [address] Nov, Bipolar 1 disorder, mixed F3 1.60 [place] [address] [place] [id number] [address] [place] [address] Nov, Bipolar 1 disorder, mixed F3 1.60 [place] [address] [place] [id number] [address] [place] [address] Nov, Bipolar 1 disorder, mixed F3 1.60 [place] [address] [place] [id number] [address] [place] [address] Nov, [place] [address] [address] Nov, Anesthesia of skin R20.0 ; F requent UTI N39.0 ; Tobacco abuse Z72.0 and Colon cancer screening Z12.11 [place] [address] [address] Nov, Bipolar 1 disorder, mixed F3 1.60 [place] [address] [address] October, Bipolar 1 disorder, mixed F3 1.60 [place] [address] [address] October, Bipolar 1 disorder, mixed F3 1.60 [place] [address] [address] October, Bipolar 1 disorder, mixed F3 1.60 [place] [address] [address] October, Bipolar 1 disorder, mixed F3 1.60 [place] [address] [address] October, Bipolar 1 disorder, mixed F3 1.60 [place] [address] [address] October, Cervicalgia M54.2 and Bipola r 1 disorder, mixed F31.60 [place] [address] [address] October, Hypertension I10 ; Hyperlipi demia, unspecified hyperlipidemia type E78.5 and Family history of thyroid disease Z83.49 [place] [address] [address] October, [place] [address] [address] October, Hypertension I10 ; Hyperlipi demia, unspecified hyperlipidemia type E78.5 and Family history of thyroid problem Z83.49 [facility] [id number] [place] [address] October, Bipolar 1 disorder, mixed F3 1.60 [place] [address] [place] [id number] [address] [place] [address] Sep, Bipolar 1 disorder, mixed F3 1.60 [place] [address] [address] Sep, Bipolar 1 disorder, mixed F3 1.60 [place] [address] [address] Sep, Bipolar 1 disorder, mixed F3 1.60 [place] [address] [address] Sep, History of colon polyps Z86. 010 and Hematochezia K92.1 [place] [address] [place] [id number] [address] [place] [address] Sep, Major depressive disorder, r ecurrent episode, moderate F33.1 [place] [address] [place] [id number] [address] [place] [address] Sep, Bipolar 1 disorder, mixed F3 1.60 [place] [address] [place] [id number] [address] [place] [address] Aug, Hot flashes due to menopause N95.1 [place] [address] [place] [id number] [address] [place] [address] Aug, Bipolar 1 disorder, mixed F3 1.60 [place] [address] [place] [id number] [address] [place] [address] Aug, [place] [address] [place] [id number] [place] [id number] Aug, Bipolar 1 disorder, mixed F3 1.60 [place] [address] [place] [id number] [address] [place] [address] Aug, Bipolar 1 disorder, mixed F3 1.60 [place] [address] [address] Aug, Hot flashes due to menopause N95.1 ; Cervicalgia M54.2 and Ataxia R27.0 [place] [address] [address] Jul, Bipolar 1 disorder, mixed F3 1.60 [place] [address] [place] 6[address] Jul, Bipolar 1 disorder, mixed F3 1.60 [place] [address] Jul, Bipolar 1 disorder, mixed F3 1.60 [place] [address] [address] Jul, Bipolar 1 disorder, mixed F3 1.60 [place] [address] [address] Jul, Bipolar 1 disorder, mixed F3 1.60 [place] [address] [address] Jul, Cervicalgia M54.2 ; Tremor R 25.1 ; Hearing abnormally acute, unspecified laterality H93.239 ; Alopecia L65.9 ; Encounter for immunization Z23 and Family history of thyroid disease Z83.49 [place] [address] [address] Jul, Bipolar 1 disorder, mixed F3 1.60 [place] [address] [address] Jun, [place] [address] [place] [id number] Jun, Hearing disorder, unspecifie d laterality H93.299 [place] [address] [address] Jun, Bipolar 1 disorder, mixed F3 1.60 [facility] [address] [id number] [address] [place] [address] Jun, Bipolar 1 disorder, mixed F3 1.60 [facility] [address] [id number] [address] [place] [address] Jun, Allergic rhinitis J30.9 [facility] [address] [id number] [address] [place] [address] Jun, Bipolar 1 disorder, mixed F3 1.60 [facility] [address] [id number] [address] [place] [address] Jun, Bipolar 1 disorder, mixed F3 1.60 [facility] [address] [facility] [id number] [address] [place] [address] Jun, Allergic rhinitis J30.9 [facility] [address] [facility] [id number] [address] [place] [address] Jun, Allergic rhinitis J30.9 [facility] [address] [facility] [id number] [address] [place] [address] Jun, Bipolar 1 disorder, mixed F3 1.60 [facility] [address] [facility] [id number] [address] [place] [address] May, Bipolar 1 disorder, mixed F3 1.60 [facility] [address] [facility] [id number] [address] [place] [address] May, Bipolar 1 disorder, mixed F3 1.60 [facility] [address] [id number] [address] [place] [address] May, [facility] [address] [facility] [id number] [address] [place] [address] May, Bipolar 1 disorder, mixed F3 1.60 [facility] [address] [facility] [id number] [address] [place] [address] May, Bipolar 1 disorder, mixed F3 1.60 [facility] [address] [facility] [id number] [address] [place] [address] May, [facility] [address] [facility] [id number] [address] [place] [address] May, [facility] [address] [facility] [id number] [address] [place] [address] May, [facility] [address] [place] [id number] [address] [place] [address] May, Abdominal pain, unspecified location R10.9 [facility] [address] [facility] [id number] [address] [place] [address] May, [facility] [address] [place] [id number] [place] [address] Apr, Hematuria R31.9 ; Ataxia R27 .0 and Hearing loss, unspecified laterality H91.90 [facility] [address] [address] Apr, Bipolar 1 disorder, mixed F3 1.60 [facility] [address] [place] [id number] [address] [place] [id number] Apr, Acute effusion of both middl e ears H65.193 [facility] [id number] [place] [id number] Apr, Hematuria R31.9 and Pyelonep hritis N12 [facility] [id number] [place] [id number] Apr, [facility] [address] [facility] [id number] [address] [place] [id number] Mar, Bipolar 1 disorder, mixed F3 1.60 [facility] [id number] [place] [id number] Mar, [facility] [id number] [place] [id number] Mar, Bipolar 1 disorder, mixed F3 1.60 [facility] [id number] [place] [id number] Mar, Bipolar 1 disorder, mixed F3 1.60 [place] [address] [place] [address] Mar, Encounter for immunization Z 23 and Gastritis without bleeding, unspecified chronicity, unspecified gastritis type K29.70 [place] [id number] [place] [id number] Mar, Bipolar 1 disorder, mixed F3 1.60 and Grief F43.20 [place] [id number] [place] [id number] Mar, Gastritis without bleeding, unspecified chronicity, unspecified gastritis type K29.70 [place] [id number] [place] [id number] Mar, Bipolar 1 disorder, mixed F3 1.60 [place] [id number] [place] [id number] Mar, Gastritis without bleeding, unspecified chronicity, unspecified gastritis type K29.70 [place] [id number] [place], [place] [id number] Mar, [place] [id number] [place] [id number] Feb, Bipolar 1 disorder, mixed F3 1.60 [place] [id number] [place] [id number] Feb, Bipolar 1 disorder, mixed F3 1.60 and Grief F43.20 [facility] [address] [facility] [id number] [address] [place] [id number] Feb, Gastritis without bleeding, unspecified chronicity, unspecified gastritis type K29.70 [place] [address] [facility] [id number] [address] [place] [address] [id number] 14 Feb, 2016 Bipolar 1 disorder, mixed F3 1.60 [facility] [address] [place] [address] Feb, Gastroesophageal reflux dise ase, esophagitis presence not specified K21.9 [place] [address] Jan, Bipolar 1 disorder, mixed F3 1.60 [place] [address] [place] [address] Jan, Bipolar 1 disorder, mixed F3 1.60 and Unsteady gait R26.81 [place] [address] [address] Jan, Bipolar 1 disorder, mixed F3 1.60 [place] [address] Jan, Bipolar 1 disorder, mixed F3 1.60 and Other skilled nursing (current) drug therapy Z79.899 [place] [address] [address] Jan, Bipolar 1 disorder, mixed F3 1.60 [place] [address] [place] [address] Jan, Bipolar 1 disorder, mixed F3 1.60 [place] [address] Jan, Bipolar 1 disorder, mixed F3 1.60 ; Grief F43.20 and Other skilled nursing (current) drug therapy Z79.899 [place] [address] [place] [address] Jan, Bipolar 1 disorder, mixed F3 1.60 [place] [address] [place] [address] Dec, [place] [address] [place] [address] Dec, Bipolar 1 disorder, mixed F3 1.60 ; Vitamin D deficiency, unspecified E55.9 ; H/O allergic rhinitis Z87.09 ; Other chronic pain G89.29 and Dorsalgia, unspecified M54.9 [facility] [address] [id number] [address] [place] [address] Dec, [facility] [address] [id number] [address] [place] [address] Dec, Bipolar 1 disorder, mixed F3 1.60 [facility] [address] [facility] [id number] [address] [place] [address] Dec, Major depressive disorder, r ecurrent episode, moderate F33.1 [place] [address] [id number] [address] [place] [address] Dec, Major depressive disorder, r ecurrent episode, moderate F33.1 [place] [address] [facility] [id number] [address] [place] [address] Nov, [place] [address] [address] [facility] [id number] [address] [place] [address] Nov, Bipolar 1 disorder, mixed F3 1.60 [place] [address] [facility] [id number] [address] [place] [address] Nov, Major depressive disorder, r ecurrent episode, moderate F33.1 [place] [address] [facility] [id number] [address] [place] [address] Nov, Cervicalgia M54.2 ; Arthralg ia of hip, unspecified laterality M25.559 ; Allergic rhinitis J30.9 and Hormone replacement therapy Z79.890 [facility] [address] [facility] [id number] [address] [place] [address] Nov, Other seasonal allergic rhin itis J30.2 [facility] [address] [facility] [id number] [address] [place] [address] October, Major depressive disorder, r ecurrent episode, moderate F33.1 [facility] [address] [facility] [id number] [address] [place] [address] October, Major depressive disorder, r ecurrent episode, moderate F33.1 and Arthralgia of hip, unspecified laterality M25.559 [place] [address] [facility] [id number] [address] [place] [address] October, Grief F43.20 ; Hypertension I10 ; Hyperlipidemia, unspecified hyperlipidemia type E78.5 ; Other chronic pain G89.29 and Allergic rhinitis, unspecified allergic rhinitis type J30.9 [place] [address] [facility] [id number] [address] [place] [address] October, Major depressive disorder, r ecurrent episode, moderate F33.1 [place] [address] [facility] [id number] [address] [place] [address] Sep, Major depressive disorder, r ecurrent episode, moderate F33.1 [place] [address] [facility] [id number] [address] [place] [address] Sep, [place] [address] [place] [id number] [address] [place] [address] Sep, Major depressive disorder, r ecurrent episode, moderate F33.1 [place] [address] [facility] [id number] [address] [place] [address] Sep, Grief F43.20 [place] [address] [facility] [id number] [address] [place] [address] Aug, Major depressive disorder, r ecurrent episode, moderate F33.1 [place] [address] [facility] [id number] [address] [place] [address] Aug, Bipolar 1 disorder, mixed F3 1.60 [place] [address] [address] [facility] [id number] [address] [place] [address] Aug, Allergic rhinitis J30.9 ; Ce rvicalgia M54.2 and Low back pain M54.5 [place] [address] [address] [facility] [id number] [address] [place] [address] Aug, Major depressive disorder, r ecurrent episode, moderate F33.1 [facility] [address] [id number] [address] [place] [address] Aug, Sinusitis J32.9 and Tobacco 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 [facility] [address] [facility] [id number] [address] [place] [address] Aug, [facility] [address] [facility] [id number] [address] [place] [address] Aug, Depressive disorder, not els ewhere classified F32.9 ; Hormone replacement therapy Z79.[address] scan, head R93.0 [facility] [address] [facility] [id number] [address] [place] [address] Aug, Major depressive disorder, r ecurrent episode, moderate F33.1 [facility] [address] [facility] [id number] [address] [place] [address] Jul, Major depressive disorder, r ecurrent episode, moderate F33.1 [facility] [address] [facility] [id number] [address] [place] [address] Jul, Abdominal pain R10.9 and Hyp ertension I10 [facility] [address] [facility] [id number] [address] [place] [address] Jul, [facility] [address] [facility] [id number] [address] [place] [address] Jul, Major depressive disorder, r ecurrent episode, moderate F33.1 [facility] [address] [facility] [id number] [address] [place] [address] Jul, [facility] [address] [facility] [id number] [address] [place] [address] Jul, [facility] [address] [facility] [id number] [address] [place] [address] Jun, [facility] [address] [facility] [id number] [address] [place] [address] Jun, Depressive disorder, not els ewhere classified F32.9 [facility] [id number] [place] [address] Jun, [facility] [address] [id number] [address] [place] [address] Jun, [facility] [address] [id number] [address] [place] [address] Jun, Arthralgia of hip, unspecifi ed laterality M25.559 ; Bruising, spontaneous R23.3 and Night sweats R61 [facility] [address] [id number] [address] [place] [address] Jun, [facility] [address] [id number] [address] [place] [address] Jun, [facility] [address] [facility] [id number] [address] [place] [address] May, [facility] [address] [facility] [id number] [address] [place] [address] May, Myalgia M79.1 and Screening, lipid Z13.220 [facility] [address] [facility] [id number] [address] [place] [address] Apr, Status post cervical spinal fusion Z98.1 ; Fibromyalgia M79.7 and Unsteady gait R26.81 [facility] [address] [id number] [address] [place] [address] Nov, [facility] [address] [id number] [address] [place] [address] Nov, [facility] [address] [id number] [address] [place] [address] October, [facility] [address] [facility] [id number] [address] [place] [address] October, [facility] [address] [id number] [address] [place] [address] October, [facility] [address] [facility] [id number] [address] [place] [address] October, [facility] [address] [id number] [address] [place] [address] October, [facility] [address] [id number] [address] [place] [address] October, Dysuria 788.1 ; Nausea 787.0 2 and Urinary tract infection 599.0 [facility] [address] [id number] [address] [place] [address] Sep, [facility] [address] [id number] [address] [place] [address] Sep, [facility] [address] [id number] [address] [place] [address] Aug, [facility] [address] [id number] [address] [place] [address] Aug, [facility] [address] [id number] [address] [place] [address] Aug, [facility] [address] [id number] [address] [place] [address] Aug, [facility] [address] [id number] [address] [place] [address] Aug, [facility] [address] [id number] [address] [place] [address] Aug, [facility] [address] [id number] [address] [place] [address] Aug, [facility] [address] [id number] [address] [place] [address] Aug, [facility] [address] [id number] [address] [place] [address] Aug, [facility] [address] [id number] [address] [place] [address] 18 Aug, 2014 [facility] [address] [id number] [address] [place] [address] 18 Aug, 2014 [facility] [address] [id number] [facility] [place] [address] Aug, [facility] [address] [id number] [address] [place] [address], [place] [address] Aug, [facility] [address] [id number] [address] [place] [address], [place] [address] Aug, [facility] [address] [id number] [address] [place] [address], [place] [address] Aug, [facility] [address] [id number] [address] [place] [address], [place] [address] Aug, [facility] [address] [id number] [address] [place] [address], [place] [address] Aug, [facility] [address] [id number] [address] [place] [address], [place] [address] Aug, [facility] [address] [id number] [address] [place] [address], [place] [address] 05 Aug, 2014 [facility] [address] [id number] [address] [place] [address], [place] [address] Aug, [facility] [address] [id number] [address] [place] [address], [place] [address] Aug, [facility] [address] [id number] [address] [place] [address], [place] [address] Aug, [facility] [address] [id number] [address] [place] [address], [place] [address] Jul, [facility] [address] [id number] [address] [place] [address], [place] [address] Jul, [facility] [address] [id number] [address] [place] [address], [place] [address] Jul, [facility] [address] [id number] [address] [place] [address], [place] [address] Jul, [facility] [address] [id number] [address] [place] [address], [place] [address] Jul, 2014 [facility] [address] [id number] [address] [place] [address], [place] [address] Jul, 2014 [facility] [address] [id number] [address] [place] [address], [place] [address] Jul, 2014 [facility] [address] [id number] [address] [place] [address], [place] [address] Jul, 2014 [facility] [address] [id number] [address] [place] [address], [place] [address] Jul, 2014 [facility] [address] [id number] [address] [place] [address], [place] [address] Jul, 2014 [facility] [address] [id number] [address] [place] [address], [place] [address] Jul, 2014 [facility] [address] [id number] [address] [place] [address], [place] [address] Jul, 2014 [facility] [address] [id number] [address] [place] [address], [place] [address] Jul, [facility] [address] [id number] [address] [place] [address] Jul, [facility] [address] [id number] [address] [place] [address] Jun, [facility] [address] [id number] [address] [place] [address] Jun, [facility] [address] [id number] [address] [place] [address] Jun, [facility] [address] [id number] [address] [place] [address] Jun, [facility] [address] [id number] [address] [place] [address] Jun, [facility] [address] [id number] [address] [place] [address] Jun, [facility] [address] [id number] [address] [place] [address], [place] [address] May, [facility] [address] [id number] [address] [place] [address], [place] [address] May, [facility] [address] [id number] [address] [place] [address], [place] [address] May, [facility] [address] [id number] [address] [place] [address], [place] [address] May, [facility] [address] [id number] [address] [place] [address], [place] [address] May, [facility] [address] [id number] [address] [place] [address], [place] [address] May, [facility] [address] [id number] [address] [place] [address], [place] [address] Apr, [facility] [address] [id number] [address] [place] [address], [place] [address] Apr, [facility] [address] [id number] [address] [place] [address], [place] [address] Apr, [facility] [address] [id number] [address] [place] [address], [place] [address] Apr, [facility] [address] [id number] [address] [place] [address], [place] [address] Apr, [facility] [address] [id number] [address] [place] [address] Apr, [facility] [address] [id number] [address] [place] [address], [place] [address] Mar, [facility] [address] [id number] [address] [place] [address], [place] [address] Mar, [facility] [address] [id number] [address] [place] [address], [place] [address] Mar, [facility] [address] [id number] [address] [place] [address], [place] [address] 09 Mar, 2013 [facility] [address] [id number] [address] [place] [address], [place] [address] Mar, 2013 [facility] [address] [id number] [address] [place] [address], [place] [address] Mar, 2013 [facility] [address] [id number] [address] [place] [address], [place] [address] Mar, 2013 [facility] [address] [id number] [address] [place] [address], [place] [address] Mar, 2013 [facility] [address] [id number] [address] [place] [address], [place] [address] Mar, 2013 [facility] [address] [id number] [address] [place] [address], [place] [address] Mar, 2013 [facility] [address] [id number] [address] [place] [address], [place] [address] Mar, 2013 [facility] [address] [id number] [address] [place] [address], [place] [address] Mar, [facility] [address] [id number] [address] [place] [address], [place] [address] 30 Feb, 2013 [facility] [address] [id number] [address] [place] [address], [place] [address] 29 Sep, 2013 [facility] [address] [id number] [address] [place] [address], [place] [address] 29 Sep, 2013 [facility] [address] [id number] [address] [place] [address], [place] [address] 23 Sep, 2013 [facility] [address] [id number] [address] [place] [address], [place] [address] 23 Sep, 2013 [facility] [address] [id number] [address] [place] [address], [place] [address] 08 Sep, 2013 [facility] [address] [id number] [address] [place] [address], [place] [address] Feb, [facility] [address] [id number] [facility] [place] [address] Jan, [facility] [address] [id number] [address] [place] [address], [place] [address] Jan, [facility] [address] [id number] [address] [place] [address], [place] [address] Jan, [facility] [address] [id number] [address] [place] [address], [place] [address] Dec, [facility] [address] [id number] [address] [place] [address], [place] [address] Dec, [facility] [address] [id number] [address] [place] [address], [place] [address] Dec, [facility] [address] [id number] [address] [place] [address], [place] [address] Dec, [facility] [address] [id number] [address] [place] [address], [place] [address] Sep, [facility] [address] [id number] [address] [place] [address], [place] [address] Sep, [facility] [address] [id number] [address] [place] [address], [place] [address] Sep, [facility] [address] [id number] [address] [place] [address], [place] [address] Sep, [facility] [address] [id number] [address] [place] [address], [place] [address] Sep, [facility] [address] [id number] [address] [place] [address], [place] [address] Sep, [facility] [address] [id number] [address] [place] [address], [place] [address] Sep, [facility] [address] [id number] [address] [place] [address], [place] [address] Sep, [facility] [address] [id number] [address] [place] [address], [place] [address] 10 Aug, 2013 [facility] [address] [id number] [address] [place] [address], [place] [address] 10 Aug, 2013 [facility] [address] [id number] [address] [place] [address], [place] [address] May, [facility] [address] [id number] [address] [place] [address], [place] [address] May, [facility] [address] [id number] [address] [place] [address], [place] [address] Apr, [facility] [address] [id number] [address] [place] [address], [place] [address] Apr, [facility] [address] [id number] [address] [place] [address], [place] [address] Apr, [facility] [address] [id number] [address] [place] [address], [place] [address] Apr, [facility] [address] [id number] [address] [place] [address], [place] [address] Apr, [facility] [address] [id number] [address] [place] [address], [place] [address] Apr, [facility] [address] [id number] [address] [place] [address], [place] [address] May, [facility] [address] [id number] [address] [place] [address], [place] [address] 18 May, 2012 [facility] [address] [id number] [address] [place] [address], [place] [address] 15 May, 2012 [facility] [address] [id number] [address] [place] [address], [place] [address] 15 May, 2012 [facility] [address] [id number] [address] [place] [address], [place] [address] 13 May, 2012 [facility] [address] [id number] [address] [place] [address], [place] [address] 13 May, 2012 [facility] [address] [id number] [address] [place] [address], [place] [address] Apr, [facility] [address] [id number] [address] [place] [address], [place] [address] Apr, [facility] [address] [id number] [address] [place] [address], [place] [address] 08 Apr, 2012 [facility] [address] [id number] [address] [place] [address], [place] [address] Apr, [facility] [address] [id number] [address] [place] [address], [place] [address] Apr, [facility] [address] [id number] [address] [place] [address], [place] [address] Apr, [facility] [address] [id number] [address] [place] [address], [place] [address] Apr, [facility] [address] [id number] [address] [place] [address], [place] [address] Apr, [facility] [address] [id number] [address] [place] [address], [place] [address] Apr, [facility] [address] [id number] [address] [place] [address], [place] [address] Apr, [facility] [address] [id number] [address] [place] [address], [place] [address] Mar, [facility] [address] [id number] [address] [place] [address], [place] [address] Mar, [facility] [address] [id number] [address] [place] [address], [place] [address] Mar, [facility] [address] [id number] [address] [place] [address], [place] [address] Mar, [facility] [address] [id number] [address] [place] [address], [place] [address] Mar, [facility] [address] [id number] [address] [place] [address], [place] [address] Mar, [facility] [address] [id number] [address] [place] [address], [place] [address] Mar, [facility] [address] [id number] [address] [place] [address], [place] [address] Mar, [facility] [address] [id number] [address] [place] [address], [place] [address] Mar, [facility] [address] [id number] [address] [place] [address], [place] [address] Feb, [facility] [address] [id number] [address] [place] [address], [place] [address] 16 Feb, 2012 [facility] [address] [id number] [address] [place] [address], [place] [address] Feb, [facility] [address] [id number] [address] [place] [address], [place] [address] Jan, [facility] [address] [id number] [address] [place] [address], [place] [address] Jan, [facility] [address] [id number] [address] [place] [address], [place] [address] Jan, [facility] [address] [id number] [address] [place] [address], [place] [address] Jan, [facility] [address] [id number] [address] [place] [address], [place] [address] Jan, [facility] [address] [id number] [address] [place] [address], [place] [address] Jan, [facility] [address] [id number] [address] [place] [address], [place] [address] 16 Jan, 2012 [facility] [address] [id number] [address] [place] [address], [place] [address] Jan, [facility] [address] [id number] [address] [place] [address], [place] [address] Jan, [facility] [address] [id number] [address] [place] [address], [place] [address] Jan, [facility] [address] [id number] [address] [place] [address], [place] [address] Dec, [facility] [address] [id number] [address] [place] [address], [place] [address] Dec, [facility] [address] [id number] [address] [place] [address], [place] [address] Dec, [facility] [address] [id number] [address] [place] [address], [place] [address] Dec, [facility] [address] [id number] [address] [place] [address], [place] [address] Nov, [facility] [address] [id number] [address] [place] [address], [place] [address] Nov, [facility] [address] [id number] [address] [place] [address], [place] [address] Nov, [facility] [address] [id number] [address] [place] [address], [place] [address] October, [facility] [address] [id number] [address] [place] [address], [place] [address] October, [facility] [address] [id number] [address] [place] [address], [place] [address] October, [facility] [address] [id number] [address] [place] [address], [place] [address] October, [facility] [address] [id number] [address] [place] [address], [place] [address] October, [facility] [address] [id number] [address] [place] [address], [place] [address] October, [facility] [address] [id number] [address] [place] [address], [place] [address] Aug, [facility] [address] [id number] [address] [place] [address], [place] [address] Mar, [facility] [address] [facility] [id number] [address] [place] [id number] Nov, [facility] [address] [facility] [id number] [address] [place] [phone] May, [facility] [address] [facility] [id number] [address] [place] [id number] May, [facility] [address] [facility] [id number] [address] [place] [address] Apr, [facility] [address] [facility] [id number] [address] [place] [address] Mar, [facility] [address] [facility] [id number] [address] [place] [id number] Mar, IMMUNIZATIONS No Known Immunizations SOCIAL HISTORY Never Assessed REASON FOR VISIT DEPRESSION, has gas/belching and pain- On right side, Wants you to look at her w arts on her hands. , Wants you to look at her toes on her right foot. THey are s tarting to curl up. PLAN OF CARE Activity Details Follow Up 4 Weeks Reason: VITAL SIGNS Height 64 in 2017-03-08 Weight 152.6 lbs 2017-03-08 Temperature 98.0 degrees Fahrenheit 2017-03-08 Heart Rate 92 bpm 2017-03-08 BMI 26.19 kg/m2 2017-03-08 Blood pressure systolic 120 mmHg 2017-03-08 Blood pressure diastolic 70 mmHg 2017-03-08 MEDICATIONS Medication Instructions Dosage Frequency Start Date End Date Duration S tatus Vagifem 10 MCG Vaginal Two times a Week 1 tablet Active Mucinex 600 MG Orally every 12 hrs 1 tablet as needed 12h Active HydrOXYzine HCl 10 MG Orally BID prn anxiety, MAX 45 tabs monthly 1 t ablet Active Pantoprazole Sodium 20 MG TAKE 1 TABLET BY MOUTH ONCE DAILY 30 Active Estradiol 2 MG Orally Once a day 1 tablet 24h Active Selenium 50 MCG Orally Once a day 1 tablet 24h Active Fetzima 120 mg Orally Once a day TAKE 1 CAPSULE BY MOUTH DAILY 24h Active Ibuprofen 200 MG Orally every 6 hrs 1 tablet as needed 6h Active Nitrofurantoin Macrocrystal 100 MG Orally Once a day 1 cap isabel with food or milk 24h Active O34-[id number] 1 MG Active Cetirizine HCl 10 mg Orally Once a day 1 tablet 24h Jan, 7 Jan, 90 days Active Depakote ER 500 MG Orally at bedtime 2 tabs Feb, Active Myrbetriq 50 MG Orally Once a day 1 tablet 24h Active Melatonin 5 MG Orally at bedtime 1 Tablet by Oral route 1 time per day HS Aug, Active Vitamin D3 2000 UNIT Orally Once a day as directed 24h Dec, Active Flexeril 10 mg by oral route 2 times a day 1 tablet 12h Aug, 30 Active Urecholine 25 MG Orally Three times a day 1 tablet after meals 8h Dec, 10 days Active Voltaren 1 % Transdermal 4 times a day on neck Active Cyclobenzaprine HCl 10 MG TAKE 1 TABLET BY MOUTH TWICE DAILY NEEDED 30 Active Probiotic Acidophilus Ac tive Magnesium 500 MG Orally Once a day 1 tablet with a meal 24h Dec, Active Multi Vitamin Daily Orally Once a day 1 tablet 24h Active Flonase 50 MCG/ACT Nasally twice a day 1 spray in each nostril 12h Jan, Active RESULTS No Results PROCEDURES Procedure Date Ordered Result Body Site CRYOTHERAPY OF SKIN 2017-03-08 N/A CRYOTHERAPY OF SKIN Mar 08, 2017 [facility] VISIT ESTABLISHED PATIENT Mar 08, 2017 INSTRUCTIONS MEDICATIONS ADMINISTERED No Known Medications [...]
--- OUTSIDE RECORDS SUMMARY | 2019-06-19 05:44 | XMS REPORT ---
Author Author Sydnie HANCOCK [facility] Address [address] [place] [address] Care Team Providers Care Teachers Assistant Name Role Phone NAHOMY HANCOCK Unavailable PROBLEMS Type Condition ICD9-CM Code LII40-IT Code Onset Dates Condition S tatus SNOMED Code Problem Hormone replacement therapy Z79.890 Ac tive 263983088 Problem Abnormal CT scan, head R93.0 Active 128334874 Problem Sensorineural hearing loss (SNHL) of both ears H90 .3 Active 182067558 Problem History of colon polyps Z86.010 Active 107027387 Problem Bruising, spontaneous R23.3 Active 203840183 Problem Generalized anxiety disorder F41.1 A ctive 07871544 Problem Arthralgia of hip, unspecified laterality M25.559 Active 39080822 Problem Hematuria, unspecified type R31.9 Ac tive 15343571 Problem Imbalance R26.89 Active 741219614 Problem Hammer toe of right foot M20.41 Activ e 434504547 Problem Plantar wart of right foot B07.0 Act mitchell [id number] Problem Sciatica of left side M54.32 Active 33305098 Problem Hyperlipidemia, unspecified hyperlipidemia type E7 8.5 Active 91776637 Problem Hypertension I10 Active 0548387 3 Problem Night sweats R61 Active 3811008 0 Problem Fibromyalgia M79.7 Active 2917750 7 Problem Major depressive disorder, recurrent episode, moderate F33.1 Active 884235886 Problem Acute left-sided low back pain with left-sided sciatica M54.42 Active 169684658 Problem Bladder spasm N32.89 Active 251624 006 Problem Gastritis without bleeding, unspecified chronicity, unspecified gastritis type K29.70 Active 504379869 Problem Bipolar 1 disorder, mixed F31.60 Acti ve 68645145 Problem Grief F43.20 Active 96644254 Problem Other chronic pain G89.29 Active 8 6895848 Problem Allergic rhinitis J30.9 Active 61 010602 Problem Hot flashes due to menopause N95.1 A ctive 572717364 Problem Ataxia R27.0 Active 57509372 Problem Hearing loss, unspecified laterality H91.90 Active 39524616 ALLERGIES Substance Reaction Event Type Date Status Morphine Sulfate Unknown Drug Allergy Jun, Active Iodine Unknown Drug Allergy Jun, Active Lyrica 75 Mg Capsule "felt weird" Non Drug Allergy Jun, Act mitchell ENCOUNTERS Encounter Location Date Diagnosis [facility] [address] [facility] [id number] [address] [place] [id number] Dec, [facility] [address] [facility] [id number] [address] [place] [id number] Dec, [facility] [address] [place] [id number] [address] [place] [address] Dec, [facility] [address] [place] [id number] [address] [place] [address] Dec, [facility] [address] [place] [id number] [address] [place] [address] Nov, [facility] [address] [place] [id number] [address] [place] [address] Nov, Bipolar 1 disorder, mixed F3 1.60 [facility] [address] [place] [id number] [address] [place] [address] Nov, Allergic rhinitis J30.9 [facility] [address] [facility] [id number] [address] [place] [address] Nov, Allergic rhinitis J30.9 [facility] [address] [facility] [id number] [address] [place] [id number] Nov, [facility] [address] [facility] [id number] [address] [place] [address] Nov, Bipolar 1 disorder, mixed F3 1.60 [facility] [address] [facility] [id number] [address] [place] [id number] Nov, Fibromyalgia M79.7 and Aller gic rhinitis J30.9 [facility] [address] [facility] [id number] [address] [place] [address] October, Bipolar 1 disorder, mixed F3 1.60 [facility] [address] [place] [id number] [address] [place] [address] October, Acute nasopharyngitis J00 [facility] [address] [place] [id number] [address] [place] [address] October, Bitten or stung by nonvenomo us insect and other nonvenomous arthropods, initial encounter W57.XXXA and Insect bite (nonvenomous) of abdominal wall, initial encounter S30.861A [facility] [address] [facility] [id number] [address] [place] [address] October, Insect bite (nonvenomous) of abdominal wall, initial encounter S30.861A ; Bitten or stung by nonvenomous insect and other nonvenomous arthropods, initial encounter W57.XXXA ; Allergic rhinitis J30.9 and Low back pain M54.5 [facility] [address] [place] [id number] [address] [place] [address] October, Bipolar 1 disorder, mixed F3 1.60 [facility] [address] [place] [id number] [address] [place] [address] October, [facility] [address] [place] [id number] [address] [place] [phone] October, [facility] [address] [facility] [id number] [address] [place] [id number] October, Bipolar 1 disorder, mixed F3 1.60 [facility] [address] [place] [id number] [address] [place] [id number] Sep, Bipolar 1 disorder, mixed F3 1.60 [facility] [address] [place] [id number] [address] [place] [address] Sep, Other chronic pain G89.29 [facility] [address] [place] [id number] [address] [place] [address] Sep, [facility] [address] [facility] [id number] [address] [place] [id number] Sep, Bipolar 1 disorder, mixed F3 1.60 [facility] [address] [place] [id number] [address] [place] [address] Sep, Allergic rhinitis J30.9 and Sciatica of left side M54.32 [facility] [address] [place] [id number] [address] [place] [address] Sep, Bipolar 1 disorder, mixed F3 1.60 [facility] [address] [place] [id number] [address] [place] [address] Sep, Bipolar 1 disorder, mixed F3 1.60 and Generalized anxiety disorder F41.1 [facility] [address] [place] [id number] [address] [place] [address] Aug, [facility] [address] [place] [id number] [address] [place] [address] Aug, Bipolar 1 disorder, mixed F3 1.60 [facility] [address] [place] [id number] [address] [place] [address] Aug, Bipolar 1 disorder, mixed F3 1.60 [facility] [address] [place] [id number] [address] [place] [phone] Aug, [facility] [address] [place] [id number] [address] [place] [address] Aug, Generalized anxiety disorder F41.1 [facility] [address] [place] [id number] [address] [place] [id number] Aug, Bipolar 1 disorder, mixed F3 1.60 [facility] [address] [place] [id number] [address] [place] [address] Aug, Plantar wart of right foot B 07.0 [facility] [address] [place] [id number] [address] [place] [address] Aug, Bipolar 1 disorder, mixed F3 1.60 [facility] [address] [facility] [id number] [address] [place] [address] Jul, Bipolar 1 disorder, mixed F3 1.60 [facility] [address] [facility] [id number] [address] [place] [address] Jul, [facility] [address] [facility] [id number] [address] [place] [id number] Jul, Bipolar 1 disorder, mixed F3 1.60 [facility] [address] [facility] [id number] [address] [place] [phone] Jul, Generalized anxiety disorder F41.1 [facility] [address] [facility] [id number] [address] [place] [id number] 07 Jul, 2017 Bipolar 1 disorder, mixed F3 1.60 [facility] [address] [place] [id number] [address] [place] [address] Jul, Acute left-sided low back pa in with left-sided sciatica M54.42 [facility] [address] [facility] [id number] [address] [place] [id number] 05 Jul, 2017 Coccydynia M53.3 [facility] [address] [facility] [id number] [address] [place] [id number] Jun, Bipolar 1 disorder, mixed F3 1.60 [facility] [address] [facility] [id number] [address] [place] [address] Jun, Acute nasopharyngitis J00 [facility] [address] [facility] [id number] [address] [place] [address] Jun, Bipolar 1 disorder, mixed F3 1.60 [facility] [address] [facility] [id number] [address] [place] [address] Jun, Fibromyalgia M79.7 [facility] [address] [facility] [id number] [address] [place] [address] Jun, Bipolar 1 disorder, mixed F3 1.60 [facility] [address] [place] [address] 08 Jun, 2017 Fibromyalgia M79.7 and Bipol ar 1 disorder, mixed F31.60 [place] [id number] [place] [id number] [address] [place] [address] May, Bipolar 1 disorder, mixed F3 1.60 ; Generalized anxiety disorder F41.1 and 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 [place] [address] [address] May, Bipolar 1 disorder, mixed F3 1.60 [facility] [place] [id number] [address] 14 May, 2017 Cough R05 and Body aches R52 [facility] [place] [address] [address] 10 May, 2017 Bladder spasm N32.89 and Acu te cystitis without hematuria N30.00 [place] [address] [address] 07 May, 2017 Bipolar 1 disorder, mixed F3 1.60 [place] [address] [address] 30 Apr, 2017 [place] [address] [address] Apr, Major depressive disorder, r ecurrent episode, moderate F33.1 and Encounter for immunization Z23 [place] [address] [place] [address] Apr, Bipolar 1 disorder, mixed F3 1.60 [place] [address] [address] Apr, Bipolar 1 disorder, mixed F3 1.60 [place] [address] [address] 16 Apr, 2017 Bipolar 1 disorder, mixed F3 1.60 [place] [address] [facility] [id number] [address] [place] [address] 13 Apr, 2017 Yeast vaginitis B37.3 [facility] [address] [place] [id number] [address] [place] [id number] 09 Apr, 2017 Bipolar 1 disorder, mixed F3 1.60 [facility] [address] [facility] [id number] [address] [place] [address] Apr, Cellulitis L03.[address] for immunization Z23 [facility] [address] [place] [id number] [address] [place] [address] Apr, Bipolar 1 disorder, mixed F3 1.60 [place] [address] [address] Mar, Bipolar 1 disorder, mixed F3 1.60 [place] [address] [address] Mar, Bipolar 1 disorder, mixed F3 1.60 [facility] [address] [place] [id number] [address] [place] [address] Mar, Imbalance R26.89 and Encount er for immunization Z23 [facility] [address] [place] [id number] [address] [place] [address] Mar, Generalized anxiety disorder F41.1 [place] [address] [place] [id number] [address] [place] [address] Mar, Bipolar 1 disorder, mixed F3 1.60 [facility] [address] [place] [id number] [address] [place] [address] Mar, Generalized anxiety disorder F41.1 [facility] [address] [place] [id number] [address] [place], [place] [address] Mar, Bipolar 1 disorder, mixed F3 1.60 [facility] [address] [place] [id number] [address] [place] [address] Mar, Bipolar 1 disorder, mixed F3 1.60 [facility] [address] [place] [address] [place] [address] Feb, Bipolar 1 disorder, mixed F3 1.60 [place] [address] [address] Feb, Bipolar 1 disorder, mixed F3 1.60 and Generalized anxiety disorder F41.1 [place] [address] [address] Feb, Gastritis without bleeding, unspecified chronicity, unspecified gastritis type K29.70 ; Hammer toe of right foot M20.41 and Other viral warts B07.8 [place] [address] [address] 20 Feb, 2017 Bipolar 1 disorder, mixed F3 1.60 [place] [address] [address] 13 Feb, 2017 Bipolar 1 disorder, mixed F3 1.60 [place] [address] [address] 05 Feb, 2017 Bipolar 1 disorder, mixed F3 1.60 [place] [address] [address] Jan, Encounter for screening mamm ogram for breast cancer Z12.31 ; Other viral warts B07.8 and Allergic rhinitis J30.9 [place] [address] [place] [address] Jan, Bipolar 1 disorder, mixed F3 1.60 [place] [address] [place] [id number] [address] [place] [address] Jan, Bipolar 1 disorder, mixed F3 1.60 [place] [address] [address] Jan, [place] [address] [place] [id number] [address] [place] [address] Jan, Bipolar 1 disorder, mixed F3 1.60 [place] [address] [address] Jan, Bipolar 1 disorder, mixed F3 1.60 [place] [address] [address] Jan, Allergic rhinitis J30.9 ; He maturia R31.9 and Colon cancer screening Z12.11 [place] [address] [address] Dec, Bipolar 1 disorder, mixed F3 1.60 [place] [address] [address] Dec, Bipolar 1 disorder, mixed F3 1.60 ; Generalized anxiety disorder F41.1 and 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 [place] [address] [address] Dec, Bipolar 1 disorder, mixed F3 1.60 [place] [address] [address] Dec, Bipolar 1 disorder, mixed F3 1.60 [place] [address] [address] Dec, Bipolar 1 disorder, mixed F3 1.60 [place] [address] [address] Dec, Low back pain M54.5 and Recu rrent urinary tract infection N39.0 [place] [address] [address] Nov, Bipolar 1 disorder, mixed F3 1.60 [place] [address] [address] Nov, Bipolar 1 disorder, mixed F3 1.60 [place] [address] [address] Nov, Bipolar 1 disorder, mixed F3 1.60 [place] [address] [address] Nov, Bipolar 1 disorder, mixed F3 1.60 [place] [address] [address] Nov, [place] [address] [place] [id number] Nov, Anesthesia of skin R20.0 ; F requent UTI N39.0 ; Tobacco abuse Z72.0 and Colon cancer screening Z12.11 [place] [address] [address] Nov, Bipolar 1 disorder, mixed F3 1.60 [place] [address] [place] [address] October, Bipolar 1 disorder, mixed F3 1.60 [place] [address] [address] October, Bipolar 1 disorder, mixed F3 1.60 [place] [address] [address] October, Bipolar 1 disorder, mixed F3 1.60 [place] [address] [address] October, Bipolar 1 disorder, mixed F3 1.60 [place] [address] [address] October, Bipolar 1 disorder, mixed F3 1.60 [place] [address] [address] October, Cervicalgia M54.2 and Bipola r 1 disorder, mixed F31.[address] [address] October, Hypertension I10 ; Hyperlipi demia, unspecified hyperlipidemia type E78.5 and Family history of thyroid disease Z83.[address] [address] October, [place] [address] [address] October, Hypertension I10 ; Hyperlipi demia, unspecified hyperlipidemia type E78.5 and Family history of thyroid problem Z83.49 [place] [address] [address] October, Bipolar 1 disorder, mixed F3 1.60 [place] [address] [address] Sep, Bipolar 1 disorder, mixed F3 1.60 [place] [address] [address] Sep, Bipolar 1 disorder, mixed F3 1.60 [place] [address] [address] Sep, Bipolar 1 disorder, mixed F3 1.60 [place] [address] [address] Sep, History of colon polyps Z86. 010 and Hematochezia K92.1 [place] [address] [address] Sep, Major depressive disorder, r ecurrent episode, moderate F33.1 [place] [address] [address] Sep, Bipolar 1 disorder, mixed F3 1.60 [place] [address] [place] [id number] [address] [place] [address] Aug, Hot flashes due to menopause N95.1 [place] [address] [address] Aug, Bipolar 1 disorder, mixed F3 1.60 [place] [address] [address] Aug, [place] [address] [address] Aug, Bipolar 1 disorder, mixed F3 1.60 [place] [address] [address] Aug, Bipolar 1 disorder, mixed F3 1.60 [place] [address] [address] Aug, Hot flashes due to menopause N95.1 ; Cervicalgia M54.2 and Ataxia R27.0 [place] [address] [address] Jul, Bipolar 1 disorder, mixed F3 1.60 [place] [address] Jul, Bipolar 1 disorder, mixed F3 1.60 [place] [address] [address] Jul, Bipolar 1 disorder, mixed F3 1.60 [place] [address] [address] Jul, Bipolar 1 disorder, mixed F3 1.60 [place] [address] [address] Jul, Bipolar 1 disorder, mixed F3 1.60 [place] [address] [address] Jul, Cervicalgia M54.2 ; Tremor R 25.1 ; Hearing abnormally acute, unspecified laterality H93.239 ; Alopecia L65.9 ; Encounter for immunization Z23 and Family history of thyroid disease Z83.49 [place] [address] [place] [id number] Jul, Bipolar 1 disorder, mixed F3 1.60 [place] [address] [address] Jun, [place] [address] [place] [id number] Jun, Hearing disorder, unspecifie d laterality H93.299 [facility] [address] [facility] [id number] [address] [place], [place] [address] Jun, Bipolar 1 disorder, mixed F3 1.60 [facility] [address] [facility] [id number] [address] [place] [address] Jun, Bipolar 1 disorder, mixed F3 1.60 [facility] [address] [facility] [id number] [address] [place] [address] Jun, Allergic rhinitis J30.9 [facility] [address] [id number] [address] [place] [address] Jun, Bipolar 1 disorder, mixed F3 1.60 [facility] [address] [facility] [id number] [address] [place] [address] Jun, Bipolar 1 disorder, mixed F3 1.60 [facility] [address] [facility] [id number] [address] [place] [address] Jun, Allergic rhinitis J30.9 [facility] [address] [id number] [address] [place] [address] Jun, Allergic rhinitis J30.9 [facility] [address] [id number] [address] [place] [address] Jun, Bipolar 1 disorder, mixed F3 1.60 [facility] [address] [facility] [id number] [address] [place] [address] May, Bipolar 1 disorder, mixed F3 1.60 [facility] [address] [id number] [address] [place] [address] May, Bipolar 1 disorder, mixed F3 1.60 [facility] [address] [facility] [id number] [address] [place] [address] May, [facility] [address] [facility] [id number] [address] [place] [address] May, Bipolar 1 disorder, mixed F3 1.60 [facility] [address] [facility] [id number] [address] [place] [address] May, Bipolar 1 disorder, mixed F3 1.60 [facility] [address] [facility] [id number] [address] [place] [address] May, [facility] [address] [facility] [id number] [address] [place] [address] May, [facility] [address] [facility] [id number] [address] [place] [address] May, [facility] [address] [facility] [id number] [address] [place] [address] May, Abdominal pain, unspecified location R10.9 [facility] [address] [facility] [id number] [address] [place] [address] May, [facility] [address] [place] [id number] [place] [address] Apr, Hematuria R31.9 ; Ataxia R27 .0 and Hearing loss, unspecified laterality H91.90 [facility] [address] [facility] [id number] [address] [place] [address] Apr, Bipolar 1 disorder, mixed F3 1.60 [facility] [address] [facility] [id number] [address] [place] [address] Apr, Acute effusion of both middl e ears H65.193 [facility] [address] [facility] [id number] [address] [place] [address] Apr, Hematuria R31.9 and Pyelonep hritis N12 [facility] [address] [facility] [id number] [address] [place] [address] Apr, [facility] [address] [facility] [id number] [address] [place] [id number] Mar, Bipolar 1 disorder, mixed F3 1.60 [facility] [address] [facility] [id number] [address] [place] [phone] Mar, [place] [address] [place] [id number] Mar, Bipolar 1 disorder, mixed F3 1.60 [place] [address] [place], [place] [id number] Mar, Bipolar 1 disorder, mixed F3 1.60 [place] [address] [address] [place] [id number] Mar, Encounter for immunization Z 23 and Gastritis without bleeding, unspecified chronicity, unspecified gastritis type K29.70 [place] [address] [place] [phone] Mar, Bipolar 1 disorder, mixed F3 1.60 and Grief F43.20 [place] [address] [address] Mar, Gastritis without bleeding, unspecified chronicity, unspecified gastritis type K29.70 [place] [address] [address] [place] [id number] [address] [place] [phone] Mar, Bipolar 1 disorder, mixed F3 1.60 [place] [address] [phone] Mar, Gastritis without bleeding, unspecified chronicity, unspecified gastritis type K29.70 [place] [address] [place] [id number] [address] [place] [phone] Mar, [place] [address] [place], [place] [id number] Feb, Bipolar 1 disorder, mixed F3 1.60 [place] [address] [place] [id number] [address] [place] [id number] Feb, Bipolar 1 disorder, mixed F3 1.60 and Grief F43.20 [place] [address] [place] [id number] Feb, Gastritis without bleeding, unspecified chronicity, unspecified gastritis type K29.70 [place] [address] [facility] [id number] [address] [place] [id number] 14 Feb, 2016 Bipolar 1 disorder, mixed F3 1.60 [facility] [address] [facility] [id number] [address] [place] [address] Feb, Gastroesophageal reflux dise ase, esophagitis presence not specified K21.9 [facility] [address] [facility] [id number] [address] [place], [place] [id number] Jan, Bipolar 1 disorder, mixed F3 1.60 [facility] [address] [facility] [id number] [address] [place] [address] Jan, Bipolar 1 disorder, mixed F3 1.60 and Unsteady gait R26.81 [facility] [address] [facility] [id number] [address] [place] [address] Jan, Bipolar 1 disorder, mixed F3 1.60 [facility] [address] [place] [id number] [address] [place], [place] [address] Jan, Bipolar 1 disorder, mixed F3 1.60 and Other assisted (current) drug therapy Z79.899 [place] [address] [place] [id number] [address] [place] [id number] Jan, Bipolar 1 disorder, mixed F3 1.60 [facility] [address] [place] [id number] [address] [place] [address] Jan, Bipolar 1 disorder, mixed F3 1.60 [facility] [address] [place] [id number] [address] [place] [address] Jan, Bipolar 1 disorder, mixed F3 1.60 ; Grief F43.20 and 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 [facility] [address] [place] [id number] [address] [place] [address] Jan, Bipolar 1 disorder, mixed F3 1.60 [facility] [address] [place] [id number] [address] [place] [address] Dec, [facility] [address] [place] [id number] [address] [place] [address] Dec, Bipolar 1 disorder, mixed F3 1.60 ; Vitamin D deficiency, unspecified E55.9 ; H/O allergic rhinitis Z87.09 ; Other chronic pain G89.29 and Dorsalgia, unspecified M54.9 [facility] [address] [facility] [id number] [address] [place] [address] Dec, [facility] [address] [place] [id number] [place] [address] Dec, Bipolar 1 disorder, mixed F3 1.60 [facility] [address] [place] [id number] [place] [address] Dec, Major depressive disorder, r ecurrent episode, moderate F33.1 [place] [address] [place] [id number] [place] [address] Dec, Major depressive disorder, r ecurrent episode, moderate F33.1 [facility] [id number] [place] [address] Nov, [place] [address] [place] [address] Nov, Bipolar 1 disorder, mixed F3 1.60 [facility] [address] [place] [id number] [address] [place] [phone] Nov, Major depressive disorder, r ecurrent episode, moderate F33.1 [place] [address] [place] [id number] [address] [place] [address] Nov, Cervicalgia M54.2 ; Arthralg ia of hip, unspecified laterality M25.559 ; Allergic rhinitis J30.9 and Hormone replacement therapy Z79.890 [facility] [address] [place] [id number] [address] [place] [address] Nov, Other seasonal allergic rhin itis J30.2 [facility] [address] [place] [id number] [address] [place] [address] October, Major depressive disorder, r ecurrent episode, moderate F33.1 [place] [address] [facility] [id number] [address] [place] [address] October, Major depressive disorder, r ecurrent episode, moderate F33.1 and Arthralgia of hip, unspecified laterality M25.559 [place] [address] [facility] [id number] [address] [place] [address] October, Grief F43.20 ; Hypertension I10 ; Hyperlipidemia, unspecified hyperlipidemia type E78.5 ; Other chronic pain G89.29 and Allergic rhinitis, unspecified allergic rhinitis type J30.9 [place] [address] [facility] [id number] [address] [place] [address] October, Major depressive disorder, r ecurrent episode, moderate F33.1 [place] [address] [place] [id number] [address] [place] [address] Sep, Major depressive disorder, r ecurrent episode, moderate F33.1 [place] [address] [facility] [id number] [address] [place] [address] Sep, [place] [address] [facility] [id number] [address] [place] [address] Sep, Major depressive disorder, r ecurrent episode, moderate F33.1 [place] [address] [place] [id number] [address] [place] [address] Sep, Grief F43.20 [place] [address] [place] [id number] [address] [place] [address] Aug, Major depressive disorder, r ecurrent episode, moderate F33.1 [place] [address] [facility] [id number] [address] [place] [address] Aug, Bipolar 1 disorder, mixed F3 1.60 [place] [address] [facility] [id number] [address] [place] [address] Aug, Allergic rhinitis J30.9 ; Ce rvicalgia M54.2 and Low back pain M54.5 [place] [address] [facility] [id number] [address] [place] [address] Aug, Major depressive disorder, r ecurrent episode, moderate F33.1 [facility] [address] [facility] [id number] [address] [place] [address] Aug, Sinusitis J32.9 and Tobacco 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 [facility] [address] [facility] [id number] [address] [place] [address] Aug, [facility] [address] [place] [id number] [place] [address] Aug, Depressive disorder, not els ewhere classified F32.9 ; Hormone replacement therapy Z79.[address] scan, head R93.0 [facility] [address] [place] [id number] [address] [place] [address] Aug, Major depressive disorder, r ecurrent episode, moderate F33.1 [facility] [address] [place] [address] Jul, Major depressive disorder, r ecurrent episode, moderate F33.1 [facility] [address] [place] [id number] [address] [place] [address] Jul, Abdominal pain R10.9 and Hyp ertension I10 [facility] [address] [place] [id number] [address] [place] [address] Jul, [facility] [address] [place] [id number] [address] [place] [address] Jul, Major depressive disorder, r ecurrent episode, moderate F33.1 [facility] [address] [place] [id number] [address] [place] [address] Jul, [facility] [address] [place] [id number] [address] [place] [phone] Jul, [facility] [address] [place] [id number] [address] [place] [address] Jun, [facility] [address] [id number] [address] [place] [address] Jun, Depressive disorder, not els ewhere classified F32.9 [facility] [address] [id number] [address] [place] [phone] Jun, [facility] [address] [facility] [id number] [address] [place] [address] Jun, [facility] [address] [id number] [address] [place] [address] Jun, Arthralgia of hip, unspecifi ed laterality M25.559 ; Bruising, spontaneous R23.3 and Night sweats R61 [facility] [address] [id number] [address] [place] [address] Jun, [facility] [address] [facility] [id number] [address] [place] [phone] Jun, [facility] [address] [facility] [id number] [address] [place] [address] May, [facility] [address] [id number] [address] [place] [address] May, Myalgia M79.1 and Screening, lipid Z13.220 [facility] [address] [facility] [id number] [address] [place] [address] Apr, Status post cervical spinal fusion Z98.1 ; Fibromyalgia M79.7 and Unsteady gait R26.81 [facility] [address] [id number] [address] [place] [address] Nov, [facility] [address] [facility] [id number] [address] [place] [address] Nov, [facility] [address] [facility] [id number] [address] [place] [phone] October, [facility] [address] [facility] [id number] [address] [place] [phone] October, [facility] [address] [id number] [address] [place] [phone] October, [facility] [address] [id number] [address] [place] [id number] October, [facility] [address] [id number] [address] [place] [address] October, [facility] [address] [id number] [address] [place] [address] October, Dysuria 788.1 ; Nausea 787.0 2 and Urinary tract infection 599.0 [facility] [address] [id number] [address] [place] [address] Sep, [facility] [address] [id number] [address] [place] [phone] Sep, [facility] [address] [id number] [address] [place] [id number] Aug, [facility] [address] [id number] [address] [place] [phone] Aug, [facility] [address] [id number] [address] [place] [address], [place] [address] Aug, [facility] [address] [id number] [address] [place] [address] Aug, [facility] [address] [id number] [address] [place] [address], [place] [address] Aug, [facility] [address] [id number] [address] [place] [address] Aug, [facility] [address] [id number] [address] [place] [address] Aug, [facility] [address] [id number] [address] [place] [phone] Aug, [facility] [address] [id number] [address] [place] [phone] Aug, [facility] [address] [id number] [facility] [place] [address] 18 Aug, 2014 [facility] [address] [id number] [address] [place] [address], [place] [address] 18 Aug, 2014 [facility] [address] [id number] [address] [place] [address], [place] [address] 13 Aug, 2014 [facility] [address] [id number] [address] [place] [address], [place] [address] 13 Aug, 2014 [facility] [address] [id number] [address] [place] [address], [place] [address] Aug, [facility] [address] [id number] [address] [place] [address], [place] [address] 11 Aug, 2014 [facility] [address] [id number] [address] [place] [address], [place] [address] 06 Aug, 2014 [facility] [address] [id number] [address] [place] [address], [place] [address] 06 Aug, 2014 [facility] [address] [id number] [address] [place] [address], [place] [address] 05 Aug, 2014 [facility] [address] [id number] [address] [place] [address], [place] [address] 05 Aug, 2014 [facility] [address] [id number] [address] [place] [address], [place] [address] Aug, [facility] [address] [id number] [address] [place] [address], [place] [address] Aug, [facility] [address] [id number] [address] [place] [address], [place] [address] Aug, [facility] [address] [id number] [address] [place] [address], [place] [address] Jul, [facility] [address] [id number] [address] [place] [address], [place] [address] Jul, [facility] [address] [id number] [address] [place] [address], [place] [address] Jul, 2014 [facility] [address] [id number] [address] [place] [address], [place] [address] Jul, 2014 [facility] [address] [id number] [address] [place] [id number] Jul, 2014 [facility] [address] [id number] [address] [place] [address], [place] [address] Jul, 2014 [facility] [address] [id number] [address] [place] [address], [place] [address] Jul, 2014 [facility] [address] [id number] [address] [place] [address], [place] [address] Jul, 2014 [facility] [address] [id number] [address] [place] [address], [place] [address] Jul, 2014 [facility] [address] [id number] [address] [place] [address], [place] [address] Jul, 2014 [facility] [address] [id number] [address] [place] [address] Jul, [facility] [address] [id number] [address] [place] [address], [place] [address] Jul, [facility] [address] [id number] [address] [place] [id number] Jul, [facility] [address] [id number] [address] [place] [id number] Jul, [facility] [address] [id number] [address] [place] [phone] Jun, [facility] [address] [id number] [address] [place] [address] Jun, [facility] [address] [id number] [address] [place] [id number] Jun, [facility] [address] [id number] [address] [place] [id number] Jun, [facility] [address] [id number] [address] [place] [address], [place] [address] Jun, [facility] [address] [id number] [address] [place] [address], [place] [address] Jun, [facility] [address] [id number] [address] [place] [address], [place] [address] May, [facility] [address] [id number] [address] [place] [address], [place] [address] May, [facility] [address] [id number] [address] [place] [address], [place] [address] May, [facility] [address] [id number] [address] [place] [address], [place] [address] May, [facility] [address] [id number] [address] [place] [address], [place] [address] May, [facility] [address] [id number] [address] [place] [address], [place] [address] May, [facility] [address] [id number] [address] [place] [address], [place] [address] Apr, [facility] [address] [id number] [address] [place] [address], [place] [address] Apr, [facility] [address] [id number] [address] [place] [address], [place] [address] Apr, [facility] [address] [id number] [address] [place] [address], [place] [address] Apr, [facility] [address] [id number] [address] [place] [address], [place] [address] Apr, [facility] [address] [id number] [address] [place] [address], [place] [address] Apr, [facility] [address] [id number] [address] [place] [address], [place] [address] 29 Mar, 2014 [facility] [address] [id number] [address] [place] [address] [place] [address] Mar, 2013 [facility] [address] [id number] [address] [place] [address], [place] [address] Mar, 2013 [facility] [address] [id number] [address] [place] [address], [place] [address] Mar, 2013 [facility] [address] [id number] [address] [place] [address], [place] [address] Mar, 2013 [facility] [address] [id number] [address] [place] [address], [place] [address] Mar, 2013 [facility] [address] [id number] [address] [place] [address], [place] [address] Mar, 2013 [facility] [address] [id number] [address] [place] [address], [place] [address] Mar, 2013 [facility] [address] [id number] [address] [place] [address], [place] [address] Mar, 2013 [facility] [address] [id number] [address] [place] [address], [place] [address] Mar, 2013 [facility] [address] [id number] [address] [place] [address], [place] [address] Mar, 2013 [facility] [address] [id number] [address] [place] [address], [place] [address] Mar, [facility] [address] [id number] [address] [place] [address], [place] [address] 30 Sep, 2013 [facility] [address] [id number] [address] [place] [address] 29 Sep, 2013 [facility] [address] [id number] [address] [place] [address], [place] [address] 29 Sep, 2013 [facility] [address] [id number] [address] [place] [address], [place] [address] 23 Feb, 2013 [facility] [address] [id number] [address] [place] [address], [place] [address] 23 Feb, 2013 [facility] [address] [id number] [facility] [place] [address] Feb, [facility] [address] [id number] [address] [place] [address], [place] [address] Feb, [facility] [address] [id number] [address] [place] [address], [place] [address] Jan, [facility] [address] [id number] [address] [place] [address], [place] [address] Jan, [facility] [address] [id number] [address] [place] [address], [place] [address] Jan, [facility] [address] [id number] [address] [place] [address], [place] [address] Dec, [facility] [address] [id number] [address] [place] [address], [place] [address] Dec, [facility] [address] [id number] [address] [place] [address], [place] [address] Dec, [facility] [address] [id number] [address] [place] [address], [place] [address] Dec, [facility] [address] [id number] [address] [place] [address], [place] [address] Sep, [facility] [address] [id number] [address] [place] [address], [place] [address] Sep, [facility] [address] [id number] [address] [place] [address], [place] [address] Sep, [facility] [address] [id number] [address] [place] [address], [place] [address] Sep, [facility] [address] [id number] [address] [place] [address], [place] [address] Sep, [facility] [address] [id number] [address] [place] [address], [place] [address] Sep, [facility] [address] [id number] [address] [place] [address], [place] [address] Sep, [facility] [address] [id number] [address] [place] [address], [place] [address] Sep, [facility] [address] [id number] [address] [place] [address], [place] [address] Aug, [facility] [address] [id number] [address] [place] [address], [place] [address] Aug, [facility] [address] [id number] [address] [place] [address], [place] [address] May, [facility] [address] [id number] [address] [place] [address], [place] [address] May, [facility] [address] [id number] [address] [place] [address], [place] [address] Apr, [facility] [address] [id number] [address] [place] [address], [place] [address] Apr, [facility] [address] [id number] [address] [place] [address], [place] [address] Apr, [facility] [address] [id number] [address] [place] [address], [place] [address] Apr, [facility] [address] [id number] [address] [place] [address], [place] [address] Apr, [facility] [address] [id number] [address] [place] [address], [place] [address] Apr, [facility] [address] [id number] [address] [place] [address], [place] [address] May, [facility] [address] [id number] [address] [place] [address], [place] [address] May, [facility] [address] [id number] [address] [place] [address], [place] [address] May, [facility] [address] [id number] [address] [place] [address], [place] [address] May, [facility] [address] [id number] [address] [place] [address], [place] [address] 13 May, 2012 [facility] [address] [id number] [address] [place] [address], [place] [address] 13 May, 2012 [facility] [address] [id number] [address] [place] [address], [place] [address] 13 Apr, 2012 [facility] [address] [id number] [address] [place] [address], [place] [address] 13 Apr, 2012 [facility] [address] [id number] [address] [place] [address], [place] [address] 08 Apr, 2012 [facility] [address] [id number] [address] [place] [address], [place] [address] 08 Apr, 2012 [facility] [address] [id number] [address] [place] [address], [place] [address] Apr, [facility] [address] [id number] [address] [place] [address], [place] [address] Apr, [facility] [address] [id number] [address] [place] [address], [place] [address] Apr, [facility] [address] [id number] [address] [place] [address], [place] [address] Apr, [facility] [address] [id number] [address] [place] [address], [place] [address] Apr, [facility] [address] [id number] [address] [place] [address], [place] [address] Apr, [facility] [address] [id number] [address] [place] [address], [place] [address] Mar, [facility] [address] [id number] [address] [place] [address], [place] [address] Mar, [facility] [address] [id number] [address] [place] [address], [place] [address] Mar, [facility] [address] [id number] [address] [place] [address], [place] [address] Mar, [facility] [address] [id number] [address] [place] [address], [place] [address] Mar, [facility] [address] [id number] [address] [place] [address], [place] [address] Mar, [facility] [address] [id number] [address] [place] [address], [place] [address] Mar, [facility] [address] [id number] [address] [place] [address], [place] [address] Mar, [facility] [address] [id number] [address] [place] [address], [place] [address] Mar, [facility] [address] [id number] [address] [place] [address], [place] [address] Feb, [facility] [address] [id number] [address] [place] [address], [place] [address] 16 Feb, 2012 [facility] [address] [id number] [address] [place] [address], [place] [id number] Feb, [facility] [address] [id number] [address] [place] [address], [place] [id number] Jan, [facility] [address] [id number] [address] [place] [address], [place] [address] Jan, [facility] [address] [id number] [address] [place] [address], [place] [address] Jan, [facility] [address] [id number] [address] [place] [address], [place] [id number] Jan, [facility] [address] [id number] [address] [place] [address], [place] [id number] Jan, [facility] [address] [id number] [address] [place] [address], [place] [address] Jan, [facility] [address] [id number] [address] [place] [address], [place] [address] Jan, [facility] [address] [id number] [address] [place] [address], [place] [address] Jan, [facility] [address] [id number] [address] [place] [address], [place] [id number] Jan, [facility] [address] [id number] [address] [place] [address], [place] [id number] Jan, [facility] [address] [id number] [address] [place] [address], [place] [id number] Dec, [facility] [address] [id number] [address] [place] [address], [place] [id number] Dec, [facility] [address] [id number] [address] [place] [address], [place] [address] Dec, [facility] [address] [id number] [address] [place] [address], [place] [id number] Dec, [facility] [address] [id number] [address] [place] [address], [place] [address] Nov, [facility] [address] [id number] [address] [place] [address], [place] [address] Nov, [facility] [address] [id number] [address] [place] [address], [place] [address] Nov, [facility] [address] [id number] [address] [place] [address], [place] [id number] October, [facility] [address] [id number] [address] [place] [address], [place] [id number] October, [facility] [address] [id number] [address] [place] [address], [place] [address] October, [facility] [address] [id number] [address] [place] [address], [place] [address] October, [facility] [address] [id number] [address] [place] [address], [place] [address] October, [facility] [address] [id number] [address] [place] [address], [place] [address] October, [facility] [address] [id number] [address] [place] [id number] Aug, [facility] [address] [id number] [address] [place] [id number] Mar, [facility] [address] [id number] [address] [place] [id number] Nov, [facility] [address] [id number] [address] [place] [id number] May, [facility] [address] [id number] [address] [place] [id number] May, [facility] [address] [id number] [address] [place] [id number] Apr, [facility] [address] [id number] [address] [place] [id number] Mar, [facility] [address] [id number] [address] [place] [id number] Mar, IMMUNIZATIONS No Known Immunizations SOCIAL HISTORY Never Assessed REASON FOR VISIT Depression----Joce PLAN OF CARE Activity Details Follow Up 4 Weeks Reason: VITAL SIGNS Height 64 in 2017-06-25 Weight 162 lbs 2017-06-25 Temperature 97.9 degrees Fahrenheit 2017-06-25 Heart Rate 100 bpm 2017-06-25 Respiratory Rate 20 2017-06-25 BMI 27.80 kg/m2 2017-06-25 Blood pressure systolic 122 mmHg 2017-06-25 Blood pressure diastolic 80 mmHg 2017-06-25 MEDICATIONS Medication Instructions Dosage Frequency Start Date End Date Duration S tatus Flonase 50 MCG/ACT Nasally twice a day 1 spray in each nostril 12h Jan, Active Voltaren 1 % Transdermal 4 times a day on neck Active Melatonin 5 mg Orally Once a day 2 tablets 24h May, 30 day(s) Active Myrbetriq 50 MG Orally Once a day 1 tablet 24h Active [id number] 1 MG Active Flexeril 10 mg by oral route 2 times a day 1 tablet 12h 18 Aug, 2014 30 Active HydrOXYzine HCl 10 MG Orally BID prn anxiety, MAX 45 tabs monthly 1 t ablet Active Vitamin D3 2000 UNIT Orally Once a day as directed 24h Dec, Active Selenium 50 MCG Orally Once a day 1 tablet 24h Not-Taking Estradiol 2 MG Orally Once a day 1 tablet 24h Active Diflucan 150 MG Orally Once a day 1 tablet and may repeat in 3 days 24h 13 Apr, 2017 Not-Taking Nitrofurantoin Monohyd Macro 100 mg Orally Once a day 1 capsule with food 24h Active Fetzima 120 mg Orally Once a day TAKE 1 CAPSULE BY MOUTH DAILY 24h Active Vagifem 10 MCG Vaginal Two times a Week 1 tablet Active Probiotic Acidophilus Ac tive Mucinex 600 MG Orally every 12 hrs 1 tablet as needed 12h Not-Taking Pantoprazole Sodium 20 MG TAKE 1 TABLET BY MOUTH ONCE DAILY 30 Active Cetirizine HCl 10 mg Orally Once a day 1 tablet 24h Jan, 7 Jan, 90 days Active Naproxen 500 mg Orally every 12 hrs 1 tablet with food or milk as n eeded 12h Jun, Active Multi Vitamin Daily Orally Once a day 1 tablet 24h Active Magnesium 500 MG Orally Once a day 1 tablet with a meal 24h Dec, Active Depakote ER 500 MG Orally at bedtime 2 tabs Active Ibuprofen 200 MG Orally every 6 hrs 1 tablet as needed 6h Not-Taking RESULTS No Results PROCEDURES Procedure Date Ordered Result Body Site [facility] VISIT ESTABLISHED PATIENT Jun 25, 2017 INSTRUCTIONS MEDICATIONS ADMINISTERED No Known Medications MEDICAL (GENERAL) HISTORY Type Description Date Medical History Severe spinal stenosis throu cervical spine CT and MRI done 10/2014 at [facility] with Neurosurgery at Medical History [...]
--- OUTSIDE RECORDS SUMMARY | 2019-06-19 05:44 | XMS REPORT ---
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 Name Role Phone JONH MORTON Unavailable PROBLEMS Type Condition ICD9-CM Code LEV34-KE Code Onset Dates Condition S tatus SNOMED Code Problem Hormone replacement therapy Z79.890 Ac tive 502825234 Problem Abnormal CT scan, head R93.0 Active 645478782 Problem Sensorineural hearing loss (SNHL) of both ears H90 .3 Active 646879671 Problem History of colon polyps Z86.010 Active 592625765 Problem Bruising, spontaneous R23.3 Active 188501328 Problem Generalized anxiety disorder F41.1 A ctive 97628106 Problem Arthralgia of hip, unspecified laterality M25.559 Active 27830001 Problem Hematuria, unspecified type R31.9 Ac tive 40165080 Problem Imbalance R26.89 Active 624109187 Problem Hammer toe of right foot M20.41 Activ e 094780456 Problem Plantar wart of right foot B07.0 Act mitchell [id number] Problem Sciatica of left side M54.32 Active 53230064 Problem Hyperlipidemia, unspecified hyperlipidemia type E7 8.5 Active 13434279 Problem Hypertension I10 Active 9446176 3 Problem Night sweats R61 Active 4061336 0 Problem Fibromyalgia M79.7 Active 3480363 7 Problem Major depressive disorder, recurrent episode, moderate F33.1 Active 930010786 Problem Acute left-sided low back pain with left-sided sciatica M54.42 Active 496515233 Problem Bladder spasm N32.89 Active 163110 006 Problem Gastritis without bleeding, unspecified chronicity, unspecified gastritis type K29.70 Active 729592630 Problem Bipolar 1 disorder, mixed F31.60 Acti ve 49572020 Problem Grief F43.20 Active 49411762 Problem Other chronic pain G89.29 Active 8 6671224 Problem Allergic rhinitis J30.9 Active 61 119008 Problem Hot flashes due to menopause N95.1 A ctive 351415035 Problem Ataxia R27.0 Active 96370964 Problem Hearing loss, unspecified laterality H91.90 Active 22594676 ALLERGIES No Information ENCOUNTERS Encounter Location Date Diagnosis [facility] [address] [facility] [id number] [address] [place] [address] Dec, [facility] [address] [facility] [id number] [address] [place] [address] Dec, [facility] [address] [facility] [id number] [address] [place] [address] Dec, [facility] [address] [facility] [id number] [address] [place] [address] Dec, [facility] [address] [facility] [id number] [address] [place] [address] Nov, [facility] [address] [facility] [id number] [address] [place] [address] Nov, Bipolar 1 disorder, mixed F3 1.60 [facility] [address] [facility] [id number] [address] [place] [address] Nov, Allergic rhinitis J30.9 [facility] [address] [facility] [id number] [address] [place] [address] Nov, Allergic rhinitis J30.9 [facility] [address] [facility] [id number] [address] [place] [address] Nov, [facility] [address] [facility] [id number] [address] [place] [address] Nov, Bipolar 1 disorder, mixed F3 1.60 [facility] [address] [facility] [id number] [address] [place] [address] Nov, Fibromyalgia M79.7 and Aller gic rhinitis J30.9 [facility] [address] [facility] [id number] [address] [place] [address] October, Bipolar 1 disorder, mixed F3 1.60 [facility] [address] [facility] [id number] [address] [place] [address] October, Acute nasopharyngitis J00 [facility] [address] [facility] [id number] [address] [place] [address] October, Bitten or stung by nonvenomo us insect and other nonvenomous arthropods, initial encounter W57.XXXA and Insect bite (nonvenomous) of abdominal wall, initial encounter S30.861A [facility] [address] [facility] [id number] [address] [place] [address] October, Insect bite (nonvenomous) of abdominal wall, initial encounter S30.861A ; Bitten or stung by nonvenomous insect and other nonvenomous arthropods, initial encounter W57.XXXA ; Allergic rhinitis J30.9 and Low back pain M54.5 [facility] [address] [facility] [id number] [address] [place] [address] October, Bipolar 1 disorder, mixed F3 1.60 [facility] [address] [facility] [id number] [address] [place] [address] October, [facility] [address] [place] [id number] [address] [place] [address] October, [facility] [address] [facility] [id number] [address] [place] [address] October, Bipolar 1 disorder, mixed F3 1.60 [facility] [address] [facility] [id number] [address] [place] [address] Sep, Bipolar 1 disorder, mixed F3 1.60 [facility] [address] [facility] [id number] [address] [place] [address] Sep, Other chronic pain G89.29 [facility] [address] [facility] [id number] [address] [place] [address] Sep, [facility] [address] [place] [id number] [address] [place] [address] Sep, Bipolar 1 disorder, mixed F3 1.60 [facility] [address] [facility] [id number] [address] [place] [address] Sep, Allergic rhinitis J30.9 and Sciatica of left side M54.32 [facility] [address] [facility] [id number] [address] [place] [address] Sep, Bipolar 1 disorder, mixed F3 1.60 [facility] [address] [facility] [id number] [address] [place] [address] Sep, Bipolar 1 disorder, mixed F3 1.60 and Generalized anxiety disorder F41.1 [facility] [address] [facility] [id number] [address] [place] [address] Aug, [facility] [address] [facility] [id number] [address] [place] [address] Aug, Bipolar 1 disorder, mixed F3 1.60 [facility] [address] [facility] [id number] [address] [place] [address] Aug, Bipolar 1 disorder, mixed F3 1.60 [facility] [address] [facility] [id number] [address] [place] [address] Aug, [facility] [address] [facility] [id number] [address] [place] [address] Aug, Generalized anxiety disorder F41.1 [facility] [address] [facility] [id number] [address] [place] [address] Aug, Bipolar 1 disorder, mixed F3 1.60 [facility] [address] [facility] [id number] [address] [place] [address] Aug, Plantar wart of right foot B 07.0 [facility] [address] [facility] [id number] [address] [place], [place] [address] Aug, Bipolar 1 disorder, mixed F3 1.60 [facility] [address] [facility] [id number] [address] [place] [address] Jul, Bipolar 1 disorder, mixed F3 1.60 [facility] [address] [facility] [id number] [address] [place] [address] Jul, [facility] [address] [facility] [id number] [address] [place] [address] 14 Jul, 2017 Bipolar 1 disorder, mixed F3 1.60 [facility] [address] [facility] [id number] [address] [place] [address] Jul, Generalized anxiety disorder F41.1 [facility] [address] [facility] [id number] [address] [place] [address] 07 Jul, 2017 Bipolar 1 disorder, mixed F3 1.60 [facility] [address] [facility] [id number] [address] [place] [address] Jul, Acute left-sided low back pa in with left-sided sciatica M54.42 [facility] [address] [place] [id number] [address] [place] [address] Jul, Coccydynia M53.3 [facility] [address] [facility] [id number] [address] [place] [address] Jun, Bipolar 1 disorder, mixed F3 1.60 [facility] [address] [facility] [id number] [address] [place] [address] Jun, Acute nasopharyngitis J00 [facility] [address] [facility] [id number] [address] [place] [address] Jun, Bipolar 1 disorder, mixed F3 1.60 [facility] [address] [facility] [id number] [address] [place] [address] Jun, Fibromyalgia M79.7 [facility] [address] [facility] [id number] [address] [place] [address] Jun, Bipolar 1 disorder, mixed F3 1.60 [facility] [address] [facility] [id number] [address] [place] [address] Jun, Fibromyalgia M79.7 and Bipol ar 1 disorder, mixed F31.60 [place] [id number] [address] May, Bipolar 1 disorder, mixed F3 1.60 ; Generalized anxiety disorder F41.1 and 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 [place] [id number] [address] May, Bipolar 1 disorder, mixed F3 1.60 [facility] [address] [address] 14 May, 2017 Cough R05 and Body aches R52 [facility] [place] [address] [address] 10 May, 2017 Bladder spasm N32.89 and Acu te cystitis without hematuria N30.00 [place] [address] [address] 07 May, 2017 Bipolar 1 disorder, mixed F3 1.60 [place] [address] [address] 30 Apr, 2017 [place] [address] [address] Apr, Major depressive disorder, r ecurrent episode, moderate F33.1 and Encounter for immunization Z23 [place] [address] [address] Apr, Bipolar 1 disorder, mixed F3 1.60 [place] [address] [address] Apr, Bipolar 1 disorder, mixed F3 1.60 [place] [address] [address] 16 Apr, 2017 Bipolar 1 disorder, mixed F3 1.60 [place] [address] [address] 13 Apr, 2017 Yeast vaginitis B37.3 [place] [address] [place] [address] 09 Apr, 2017 Bipolar 1 disorder, mixed F3 1.60 [facility] [id number] [place], [place] [address] 07 Apr, 2017 Cellulitis L03.[address] for immunization Z23 [facility] [address] [address] Apr, Bipolar 1 disorder, mixed F3 1.60 [facility] [address] [address] Mar, Bipolar 1 disorder, mixed F3 1.60 [facility] [address] Mar, Bipolar 1 disorder, mixed F3 1.60 [facility] [address] [address] Mar, Imbalance R26.89 and Encount er for immunization Z23 [facility] [address] [place] [id number] [address] [place] [address] Mar, Generalized anxiety disorder F41.1 [facility] [address] [address] Mar, Bipolar 1 disorder, mixed F3 1.60 [facility] [address] [address] Mar, Generalized anxiety disorder F41.1 [facility] [address] [place] [id number] [address] [place] [address] Mar, Bipolar 1 disorder, mixed F3 1.60 [facility] [address] [address] Mar, Bipolar 1 disorder, mixed F3 1.60 [facility] [address] [place] [id number] [address] [place] [address] Feb, Bipolar 1 disorder, mixed F3 1.60 [facility] [address] [place] [id number] [address] [place] [address] Feb, Bipolar 1 disorder, mixed F3 1.60 and Generalized anxiety disorder F41.1 [place] [address] [address] Feb, Gastritis without bleeding, unspecified chronicity, unspecified gastritis type K29.70 ; Hammer toe of right foot M20.41 and Other viral warts B07.8 [place] [address] [place] [id number] [address] [place] [address] Feb, Bipolar 1 disorder, mixed F3 1.60 [place] [address] [address] Feb, Bipolar 1 disorder, mixed F3 1.60 [place] [address] [address] 05 Feb, 2017 Bipolar 1 disorder, mixed F3 1.60 [place] [address] [address] Jan, Encounter for screening mamm ogram for breast cancer Z12.31 ; Other viral warts B07.8 and Allergic rhinitis J30.9 [place] [id number] [place] [address] Jan, Bipolar 1 disorder, mixed F3 1.60 [place] [address] [place] [address] Jan, Bipolar 1 disorder, mixed F3 1.60 [place] [address] [place] [id number] [address] [place] [address] Jan, [place] [address] [address] Jan, Bipolar 1 disorder, mixed F3 1.60 [place] [address] [place] [id number] [address] [place] [address] Jan, Bipolar 1 disorder, mixed F3 1.60 [place] [address] [place] [id number] [address] [place] [address] Jan, Allergic rhinitis J30.9 ; He maturia R31.9 and Colon cancer screening Z12.11 [facility] [address] [place] [id number] [address] [place] [address] Dec, Bipolar 1 disorder, mixed F3 1.60 [place] [address] [place] [id number] [address] [place] [address] Dec, Bipolar 1 disorder, mixed F3 1.60 ; Generalized anxiety disorder F41.1 and 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 [place] [address] [facility] [id number] [address] [place] [address] Dec, Bipolar 1 disorder, mixed F3 1.60 [place] [address] [place] [id number] [address] [place] [address] Dec, Bipolar 1 disorder, mixed F3 1.60 [place] [address] [place] [id number] [address] [place] [address] Dec, Bipolar 1 disorder, mixed F3 1.60 [place] [address] [place] [id number] [address] [place] [address] Dec, Low back pain M54.5 and Recu rrent urinary tract infection N39.0 [place] [address] [place] [id number] [address] [place] [address] Nov, Bipolar 1 disorder, mixed F3 1.60 [place] [address] [place] [id number] [address] [place] [address] Nov, Bipolar 1 disorder, mixed F3 1.60 [place] [address] [facility] [id number] [address] [place] [address] Nov, Bipolar 1 disorder, mixed F3 1.60 [place] [address] [place] [id number] [address] [place] [address] Nov, Bipolar 1 disorder, mixed F3 1.60 [place] [address] [place] [id number] [address] [place] [address] Nov, [place] [address] [address] Nov, Anesthesia of skin R20.0 ; F requent UTI N39.0 ; Tobacco abuse Z72.0 and Colon cancer screening Z12.11 [place] [address] [address] Nov, Bipolar 1 disorder, mixed F3 1.60 [place] [address] [place] [address] October, Bipolar 1 disorder, mixed F3 1.60 [place] [address] [place] [address] October, Bipolar 1 disorder, mixed F3 1.60 [place] [address] [address] October, Bipolar 1 disorder, mixed F3 1.60 [place] [address] [address] October, Bipolar 1 disorder, mixed F3 1.60 [place] [address] [address] October, Bipolar 1 disorder, mixed F3 1.60 [place] [address] [address] October, Cervicalgia M54.2 and Bipola r 1 disorder, mixed F31.60 [place] [address] [place] [id number] [place] [address] October, Hypertension I10 ; Hyperlipi demia, unspecified hyperlipidemia type E78.5 and Family history of thyroid disease Z83.49 [place] [address] [place] [id number] [address] [place] [address] October, [place] [address] [address] October, Hypertension I10 ; Hyperlipi demia, unspecified hyperlipidemia type E78.5 and Family history of thyroid problem Z83.49 [place] [address] [place] [id number] [address] [place] [address] October, Bipolar 1 disorder, mixed F3 1.60 [place] [address] [place] [id number] [address] [place] [address] Sep, Bipolar 1 disorder, mixed F3 1.60 [place] [address] [place] [id number] [address] [place] [address] Sep, Bipolar 1 disorder, mixed F3 1.60 [place] [address] [address] Sep, Bipolar 1 disorder, mixed F3 1.60 [place] [address] [address] Sep, History of colon polyps Z86. 010 and Hematochezia K92.1 [place] [address] [place] [address] Sep, Major depressive disorder, r ecurrent episode, moderate F33.1 [place] [address] [address] Sep, Bipolar 1 disorder, mixed F3 1.60 [place] [address] [place] [id number] [address] [place] [address] Aug, Hot flashes due to menopause N95.1 [facility] [address] [place] [id number] [address] [place] [address] Aug, Bipolar 1 disorder, mixed F3 1.60 [place] [address] [place] [id number] [address] [place] [address] Aug, [place] [address] [place] [id number] [address] [place] [address] Aug, Bipolar 1 disorder, mixed F3 1.60 [place] [address] [place] [id number] [address] [place] [address] Aug, Bipolar 1 disorder, mixed F3 1.60 [place] [address] [address] Aug, Hot flashes due to menopause N95.1 ; Cervicalgia M54.2 and Ataxia R27.0 [place] [address] [address] Jul, Bipolar 1 disorder, mixed F3 1.60 [place] [address] [address] Jul, Bipolar 1 disorder, mixed F3 1.60 [place] [address] Jul, Bipolar 1 disorder, mixed F3 1.60 [place] [address] [address] Jul, Bipolar 1 disorder, mixed F3 1.60 [place] [address] [address] Jul, Bipolar 1 disorder, mixed F3 1.60 [place] [address] [address] Jul, Cervicalgia M54.2 ; Tremor R 25.1 ; Hearing abnormally acute, unspecified laterality H93.239 ; Alopecia L65.9 ; Encounter for immunization Z23 and Family history of thyroid disease Z83.49 [place] [address] [address] Jul, Bipolar 1 disorder, mixed F3 1.60 [place] [address] [address] Jun, [place] [address] [address] Jun, Hearing disorder, unspecifie d laterality H93.299 [place] [address] [place] [address] Jun, Bipolar 1 disorder, mixed F3 1.60 [facility] [address] [id number] [address] [place] [address] Jun, Bipolar 1 disorder, mixed F3 1.60 [facility] [address] [id number] [address] [place] [address] Jun, Allergic rhinitis J30.9 [facility] [address] [id number] [address] [place] [address] Jun, Bipolar 1 disorder, mixed F3 1.60 [facility] [address] [id number] [address] [place] [address] Jun, Bipolar 1 disorder, mixed F3 1.60 [facility] [address] [facility] [id number] [address] [place] [address] Jun, Allergic rhinitis J30.9 [facility] [address] [facility] [id number] [address] [place] [address] Jun, Allergic rhinitis J30.9 [facility] [address] [facility] [id number] [address] [place] [address] Jun, Bipolar 1 disorder, mixed F3 1.60 [facility] [address] [id number] [address] [place] [address] May, Bipolar 1 disorder, mixed F3 1.60 [facility] [address] [id number] [address] [place] [address] May, Bipolar 1 disorder, mixed F3 1.60 [facility] [address] [id number] [address] [place] [address] May, [facility] [address] [facility] [id number] [address] [place] [address] May, Bipolar 1 disorder, mixed F3 1.60 [facility] [address] [facility] [id number] [address] [place] [address] May, Bipolar 1 disorder, mixed F3 1.60 [facility] [address] [facility] [id number] [address] [place] [address] May, [facility] [address] [facility] [id number] [address] [place] [address] May, [facility] [address] [facility] [id number] [address] [place] [phone] May, [facility] [address] [facility] [id number] [address] [place] [id number] May, Abdominal pain, unspecified location R10.9 [facility] [address] [facility] [id number] [address] [place] [id number] May, [facility] [address] [facility] [id number] [address] [place] [id number] Apr, Hematuria R31.9 ; Ataxia R27 .0 and Hearing loss, unspecified laterality H91.90 [facility] [address] [facility] [id number] [address] [place] [id number] Apr, Bipolar 1 disorder, mixed F3 1.60 [facility] [address] [facility] [id number] [address] [place] [id number] Apr, Acute effusion of both middl e ears H65.193 [facility] [address] [facility] [id number] [address] [place] [id number] Apr, Hematuria R31.9 and Pyelonep hritis N12 [facility] [address] [facility] [id number] [address] [place] [id number] Apr, [facility] [address] [facility] [id number] [address] [place] [id number] Mar, Bipolar 1 disorder, mixed F3 1.60 [facility] [address] [facility] [id number] [address] [place] [id number] Mar, [facility] [address] [facility] [id number] [address] [place] [id number] Mar, Bipolar 1 disorder, mixed F3 1.60 [facility] [address] [place] [id number] [address] [place] [id number] Mar, Bipolar 1 disorder, mixed F3 1.60 [facility] [address] Mar, Encounter for immunization Z 23 and Gastritis without bleeding, unspecified chronicity, unspecified gastritis type K29.70 [facility] [address] [place] [address] Mar, Bipolar 1 disorder, mixed F3 1.60 and Grief F43.20 [facility] [address] Mar, Gastritis without bleeding, unspecified chronicity, unspecified gastritis type K29.70 [facility] [address] Mar, Bipolar 1 disorder, mixed F3 1.60 [facility] [address] [place] [id number] Mar, Gastritis without bleeding, unspecified chronicity, unspecified gastritis type K29.70 [facility] [address] [place] [address] Mar, [facility] [address] [place] [id number] Feb, Bipolar 1 disorder, mixed F3 1.60 [facility] [address] [place] [id number] Feb, Bipolar 1 disorder, mixed F3 1.60 and Grief F43.20 [facility] [address] [place] [id number] Feb, Gastritis without bleeding, unspecified chronicity, unspecified gastritis type K29.70 [facility] [address] [place] [id number] [address] [place], [place] [address] 14 Feb, 2016 Bipolar 1 disorder, mixed F3 1.60 [facility] [address] [id number] [address] [place] [address] Feb, Gastroesophageal reflux dise ase, esophagitis presence not specified K21.9 [facility] [id number] [place] [address] Jan, Bipolar 1 disorder, mixed F3 1.60 [facility] [address] [address] Jan, Bipolar 1 disorder, mixed F3 1.60 and Unsteady gait R26.81 [place] [address] [place] [id number] [address] [place] [address] Jan, Bipolar 1 disorder, mixed F3 1.60 [place] [address] [address] Jan, Bipolar 1 disorder, mixed F3 1.60 and 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 [place] [address] [address] Jan, Bipolar 1 disorder, mixed F3 1.60 [place] [address] [address] Jan, Bipolar 1 disorder, mixed F3 1.60 [place] [address] [address] Jan, Bipolar 1 disorder, mixed F3 1.60 ; Grief F43.20 and Other shelter (current) drug therapy Z79.899 [place] [id number] [place] [id number] [address] [place] [address] Jan, Bipolar 1 disorder, mixed F3 1.60 [place] [address] [place] [address] Dec, [place] [address] [address] Dec, Bipolar 1 disorder, mixed F3 1.60 ; Vitamin D deficiency, unspecified E55.9 ; H/O allergic rhinitis Z87.09 ; Other chronic pain G89.29 and Dorsalgia, unspecified M54.9 [facility] [address] [id number] [address] [place] [address] Dec, [facility] [address] [id number] [address] [place] [address] Dec, Bipolar 1 disorder, mixed F3 1.60 [facility] [address] [facility] [id number] [address] [place] [address] Dec, Major depressive disorder, r ecurrent episode, moderate F33.1 [place] [address] [facility] [id number] [address] [place] [address] Dec, Major depressive disorder, r ecurrent episode, moderate F33.1 [place] [address] [facility] [id number] [address] [place] [address] Nov, [facility] [address] [facility] [id number] [address] [place] [address] Nov, Bipolar 1 disorder, mixed F3 1.60 [facility] [address] [facility] [id number] [address] [place] [address] Nov, Major depressive disorder, r ecurrent episode, moderate F33.1 [place] [address] [facility] [id number] [address] [place] [address] Nov, Cervicalgia M54.2 ; Arthralg ia of hip, unspecified laterality M25.559 ; Allergic rhinitis J30.9 and Hormone replacement therapy Z79.890 [facility] [address] [facility] [id number] [address] [place] [address] Nov, Other seasonal allergic rhin itis J30.2 [facility] [address] [facility] [id number] [address] [place] [address] October, Major depressive disorder, r ecurrent episode, moderate F33.1 [facility] [address] [facility] [id number] [address] [place] [address] October, Major depressive disorder, r ecurrent episode, moderate F33.1 and Arthralgia of hip, unspecified laterality M25.559 [place] [address] [facility] [id number] [address] [place] [address] October, Grief F43.20 ; Hypertension I10 ; Hyperlipidemia, unspecified hyperlipidemia type E78.5 ; Other chronic pain G89.29 and Allergic rhinitis, unspecified allergic rhinitis type J30.9 [place] [address] [facility] [id number] [address] [place] [address] October, Major depressive disorder, r ecurrent episode, moderate F33.1 [place] [address] [facility] [id number] [address] [place] [address] Sep, Major depressive disorder, r ecurrent episode, moderate F33.1 [place] [address] [place] [id number] [address] [place] [address] Sep, [place] [address] [place] [id number] [address] [place] [address] Sep, Major depressive disorder, r ecurrent episode, moderate F33.1 [place] [address] [place] [id number] [address] [place] [address] Sep, Grief F43.20 [place] [address] [facility] [id number] [address] [place] [address] Aug, Major depressive disorder, r ecurrent episode, moderate F33.1 [place] [address] [facility] [id number] [address] [place] [address] Aug, Bipolar 1 disorder, mixed F3 1.60 [place] [address] [facility] [id number] [address] [place] [address] Aug, Allergic rhinitis J30.9 ; Ce rvicalgia M54.2 and Low back pain M54.5 [place] [address] [facility] [id number] [address] [place] [address] Aug, Major depressive disorder, r ecurrent episode, moderate F33.1 [facility] [address] [id number] [address] [place] [address] Aug, Sinusitis J32.9 and Tobacco 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 [facility] [address] [id number] [address] [place] [address] Aug, [facility] [address] [facility] [id number] [address] [place] [address] Aug, Depressive disorder, not els ewhere classified F32.9 ; Hormone replacement therapy Z79.[address] scan, head R93.0 [facility] [address] [id number] [address] [place] [address] Aug, Major depressive disorder, r ecurrent episode, moderate F33.1 [facility] [address] [facility] [id number] [address] [place] [address] Jul, Major depressive disorder, r ecurrent episode, moderate F33.1 [facility] [address] [facility] [id number] [address] [place] [address] Jul, Abdominal pain R10.9 and Hyp ertension I10 [facility] [address] [id number] [address] [place] [address] Jul, [facility] [address] [facility] [id number] [address] [place] [address] Jul, Major depressive disorder, r ecurrent episode, moderate F33.1 [facility] [address] [facility] [id number] [address] [place] [address] Jul, [facility] [address] [facility] [id number] [address] [place] [address] Jul, [facility] [address] [facility] [id number] [address] [place] [address] Jun, [facility] [address] [facility] [id number] [address] [place] [address] Jun, Depressive disorder, not els ewhere classified F32.9 [place] [id number] [id number] [address] [place] [address] Jun, [facility] [address] [id number] [address] [place] [address] Jun, [facility] [address] [id number] [address] [place] [address] Jun, Arthralgia of hip, unspecifi ed laterality M25.559 ; Bruising, spontaneous R23.3 and Night sweats R61 [facility] [address] [id number] [address] [place] [address] Jun, [facility] [address] [id number] [address] [place] [address] Jun, [facility] [address] [facility] [id number] [address] [place] [address] May, [facility] [address] [id number] [address] [place] [address] May, Myalgia M79.1 and Screening, lipid Z13.220 [facility] [address] [id number] [address] [place] [address] Apr, Status post cervical spinal fusion Z98.1 ; Fibromyalgia M79.7 and Unsteady gait R26.81 [facility] [address] [id number] [address] [place] [address] Nov, [facility] [address] [id number] [address] [place] [address] Nov, [facility] [address] [id number] [address] [place] [address] October, [facility] [address] [id number] [address] [place] [address] October, [facility] [address] [facility] [id number] [address] [place] [address] October, [facility] [address] [id number] [address] [place] [address] October, [facility] [address] [id number] [address] [place] [address] October, [facility] [address] [id number] [address] [place] [address] October, Dysuria 788.1 ; Nausea 787.0 2 and Urinary tract infection 599.0 [facility] [address] [id number] [address] [place] [address] Sep, [facility] [address] [id number] [address] [place] [address] Sep, [facility] [address] [id number] [address] [place] [address] Aug, [facility] [address] [id number] [address] [place] [address] Aug, [facility] [address] [id number] [address] [place] [address] Aug, [facility] [address] [id number] [address] [place] [address] Aug, [facility] [address] [id number] [address] [place] [address] Aug, [facility] [address] [id number] [address] [place] [address] Aug, [facility] [address] [id number] [address] [place] [address] Aug, [facility] [address] [id number] [address] [place] [address] Aug, [facility] [address] [id number] [address] [place] [address] Aug, [facility] [address] [id number] [address] [place] [address] 18 Aug, 2014 [facility] [address] [id number] [address] [place] [address] [place] [address] 18 Aug, 2014 [facility] [address] [id number] [address] [place] [address], [place] [address] 13 Aug, 2014 [facility] [address] [id number] [address] [place] [address], [place] [address] 13 Aug, 2014 [facility] [address] [id number] [address] [place] [address], [place] [address] Aug, [facility] [address] [id number] [address] [place] [address], [place] [address] Aug, [facility] [address] [id number] [address] [place] [address], [place] [address] Aug, [facility] [address] [id number] [address] [place] [address], [place] [address] Aug, [facility] [address] [id number] [address] [place] [address], [place] [address] Aug, [facility] [address] [id number] [address] [place] [address], [place] [address] 05 Aug, 2014 [facility] [address] [id number] [address] [place] [address], [place] [address] Aug, [facility] [address] [id number] [address] [place] [address], [place] [address] Aug, [facility] [address] [id number] [address] [place] [address], [place] [address] Aug, [facility] [address] [id number] [address] [place] [address], [place] [address] Jul, [facility] [address] [id number] [address] [place] [address], [place] [address] Jul, [facility] [address] [id number] [address] [place] [address], [place] [address] Jul, [facility] [address] [id number] [address] [place] [address], [place] [address] Jul, [facility] [address] [id number] [address] [place] [address], [place] [address] Jul, [facility] [address] [id number] [address] [place] [address], [place] [address] Jul, [facility] [address] [id number] [address] [place] [address], [place] [address] Jul, [facility] [address] [id number] [address] [place] [address], [place] [address] Jul, [facility] [address] [id number] [address] [place] [address], [place] [address] Jul, [facility] [address] [id number] [address] [place] [address], [place] [address] Jul, [facility] [address] [id number] [address] [place] [address], [place] [address] Jul, [facility] [address] [id number] [address] [place] [address], [place] [address] Jul, [facility] [address] [id number] [address] [place] [address], [place] [address] Jul, [facility] [address] [id number] [address] [place] [address], [place] [address] Jul, [facility] [address] [id number] [address] [place] [address], [place] [address] Jun, [facility] [address] [id number] [address] [place] [address], [place] [address] Jun, [facility] [address] [id number] [address] [place] [address], [place] [address] Jun, [facility] [address] [id number] [address] [place] [address], [place] [address] Jun, [facility] [address] [id number] [address] [place] [address], [place] [address] Jun, [facility] [address] [id number] [address] [place] [address], [place] [address] Jun, [facility] [address] [id number] [address] [place] [address], [place] [address] May, [facility] [address] [id number] [address] [place] [address], [place] [address] May, [facility] [address] [id number] [address] [place] [address], [place] [address] May, [facility] [address] [id number] [address] [place] [address], [place] [address] May, [facility] [address] [id number] [address] [place] [address], [place] [address] May, [facility] [address] [id number] [address] [place] [address], [place] [address] May, [facility] [address] [id number] [address] [place] [address], [place] [address] Apr, [facility] [address] [id number] [address] [place] [address], [place] [address] Apr, [facility] [address] [id number] [address] [place] [address], [place] [address] Apr, [facility] [address] [id number] [address] [place] [address], [place] [address] Apr, [facility] [address] [id number] [address] [place] [address], [place] [address] Apr, [facility] [address] [id number] [address] [place] [address], [place] [address] Apr, [facility] [address] [id number] [address] [place] [address], [place] [address] Mar, [facility] [address] [id number] [address] [place] [address], [place] [address] Mar, [facility] [address] [id number] [address] [place] [address], [place] [address] Mar, [facility] [address] [id number] [address] [place] [address], [place] [address] Mar, 2013 [facility] [address] [id number] [address] [place] [address], [place] [address] Mar, 2013 [facility] [address] [id number] [address] [place] [address], [place] [address] Mar, 2013 [facility] [address] [id number] [address] [place] [address], [place] [address] Mar, 2013 [facility] [address] [id number] [address] [place] [address], [place] [address] Mar, 2013 [facility] [address] [id number] [address] [place] [address], [place] [address] Mar, 2013 [facility] [address] [id number] [address] [place] [address], [place] [address] Mar, 2013 [facility] [address] [id number] [address] [place] [address], [place] [address] Mar, 2013 [facility] [address] [id number] [address] [place] [address], [place] [address] Mar, [facility] [address] [id number] [address] [place] [address] 30 Feb, 2013 [facility] [address] [id number] [address] [place] [address] 29 Feb, 2013 [facility] [address] [id number] [address] [place] [address] 29 Sep, 2013 [facility] [address] [id number] [address] [place] [address], [place] [address] 23 Feb, 2013 [facility] [address] [id number] [address] [place] [address], [place] [address] 23 Feb, 2013 [facility] [address] [id number] [address] [place] [address] 08 Feb, 2013 [facility] [address] [id number] [address] [place] [address] Feb, [facility] [address] [id number] [address] [place] [address], [place] [address] Jan, [facility] [address] [id number] [address] [place] [address], [place] [address] Jan, [facility] [address] [id number] [address] [place] [address], [place] [address] Jan, [facility] [address] [id number] [address] [place] [address], [place] [address] Dec, [facility] [address] [id number] [address] [place] [address], [place] [address] Dec, [facility] [address] [id number] [address] [place] [address], [place] [address] Dec, [facility] [address] [id number] [address] [place] [address], [place] [address] Dec, [facility] [address] [id number] [address] [place] [address], [place] [address] Sep, [facility] [address] [id number] [address] [place] [address], [place] [address] Sep, [facility] [address] [id number] [address] [place] [address], [place] [address] Sep, [facility] [address] [id number] [address] [place] [address], [place] [address] Sep, [facility] [address] [id number] [address] [place] [address], [place] [address] Sep, [facility] [address] [id number] [address] [place] [address], [place] [address] Sep, [facility] [address] [id number] [address] [place] [address], [place] [address] Sep, [facility] [address] [id number] [address] [place] [address], [place] [address] Sep, [facility] [address] [id number] [address] [place] [address], [place] [address] 10 Aug, 2013 [facility] [address] [id number] [address] [place] [address], [place] [address] 10 Aug, 2013 [facility] [address] [id number] [address] [place] [address], [place] [address] May, [facility] [address] [id number] [address] [place] [address], [place] [address] May, [facility] [address] [id number] [address] [place] [address], [place] [address] Apr, [facility] [address] [id number] [address] [place] [address], [place] [address] Apr, [facility] [address] [id number] [address] [place] [address], [place] [address] Apr, [facility] [address] [id number] [address] [place] [address], [place] [address] Apr, [facility] [address] [id number] [address] [place] [address], [place] [address] Apr, [facility] [address] [id number] [address] [place] [address], [place] [address] Apr, [facility] [address] [id number] [address] [place] [address], [place] [address] 18 May, 2012 [facility] [address] [id number] [address] [place] [address], [place] [address] 18 May, 2012 [facility] [address] [id number] [address] [place] [address], [place] [address] 15 May, 2012 [facility] [address] [id number] [address] [place] [address], [place] [address] 15 May, 2012 [facility] [address] [id number] [address] [place] [address], [place] [address] 13 May, 2012 [facility] [address] [id number] [address] [place] [address], [place] [address] May, [facility] [address] [id number] [address] [place] [address], [place] [address] 13 Apr, 2012 [facility] [address] [id number] [address] [place] [address], [place] [address] Apr, [facility] [address] [id number] [address] [place] [address], [place] [address] 08 Apr, 2012 [facility] [address] [id number] [address] [place] [address], [place] [address] Apr, [facility] [address] [id number] [address] [place] [address], [place] [address] Apr, [facility] [address] [id number] [address] [place] [address], [place] [address] Apr, [facility] [address] [id number] [address] [place] [address], [place] [address] Apr, [facility] [address] [id number] [address] [place] [address], [place] [address] Apr, [facility] [address] [id number] [address] [place] [address], [place] [address] Apr, [facility] [address] [id number] [address] [place] [address], [place] [address] Apr, [facility] [address] [id number] [address] [place] [address] Mar, [facility] [address] [id number] [address] [place] [address] Mar, [facility] [address] [id number] [address] [place] [address], [place] [address] Mar, [facility] [address] [id number] [address] [place] [address], [place] [address] Mar, [facility] [address] [id number] [address] [place] [address], [place] [address] Mar, [facility] [address] [id number] [address] [place] [address], [place] [address] Mar, [facility] [address] [id number] [address] [place] [address], [place] [address] Mar, [facility] [address] [id number] [address] [place] [address], [place] [address] Mar, [facility] [address] [id number] [address] [place] [address], [place] [address] Mar, [facility] [address] [id number] [address] [place] [address], [place] [address] 25 Feb, 2012 [facility] [address] [id number] [address] [place] [address], [place] [address] 16 Feb, 2012 [facility] [address] [id number] [address] [place] [address], [place] [address] Feb, [facility] [address] [id number] [address] [place] [address], [place] [address] Jan, [facility] [address] [id number] [address] [place] [address], [place] [address] Jan, [facility] [address] [id number] [address] [place] [address], [place] [address] Jan, [facility] [address] [id number] [address] [place] [address], [place] [address] 18 Jan, 2012 [facility] [address] [id number] [address] [place] [address], [place] [address] Jan, [facility] [address] [id number] [address] [place] [address], [place] [address] 17 Jan, 2012 [facility] [address] [id number] [address] [place] [address], [place] [address] 16 Jan, 2012 [facility] [address] [id number] [address] [place] [address], [place] [address] 15 Jan, 2012 [facility] [address] [id number] [address] [place] [address], [place] [address] 15 Jan, 2012 [facility] [address] [id number] [address] [place] [address], [place] [address] Jan, [facility] [address] [id number] [address] [place] [address], [place] [address] Dec, [facility] [address] [id number] [address] [place] [address], [place] [address] Dec, [facility] [address] [id number] [address] [place] [address], [place] [address] Dec, [facility] [address] [id number] [address] [place] [address], [place] [address] Dec, [facility] [address] [id number] [address] [place] [address], [place] [address] Nov, [facility] [address] [id number] [address] [place] [address], [place] [address] Nov, [facility] [address] [id number] [address] [place] [address], [place] [address] Nov, [facility] [address] [id number] [address] [place] [address], [place] [address] October, [facility] [address] [id number] [address] [place] [address], [place] [address] October, [facility] [address] [id number] [address] [place] [address], [place] [address] October, [facility] [address] [id number] [address] [place] [address], [place] [address] October, [facility] [address] [id number] [address] [place] [address], [place] [address] October, [facility] [address] [id number] [address] [place] [address], [place] [address] October, [facility] [address] [id number] [address] [place] [address], [place] [address] Aug, [facility] [address] [id number] [address] [place] [address] 10 Mar, 2011 [facility] [address] [facility] [id number] [address] [place] [address] 16 Nov, 2010 [facility] [address] [facility] [id number] [address] [place] [address] May, [facility] [address] [facility] [id number] [address] [place] [address] May, [facility] [address] [facility] [id number] [address] [place] [address] Apr, [facility] [address] [facility] [id number] [address] [place] [address] Mar, [facility] [address] [facility] [id number] [address] [place] [address] Mar, IMMUNIZATIONS No Known Immunizations SOCIAL HISTORY Never Assessed REASON FOR VISIT f/u PLAN OF CARE Activity Details Follow Up 1 Week Reason: F/U VITAL SIGNS MEDICATIONS Unknown Medications RESULTS No Results PROCEDURES Procedure Date Ordered Result Body Site [facility] VISIT MENTAL HEALTH ESTAB PT Jun 28, 2017 Psychotherapy, patient &/family, 45 minutes, established patient Jun 28, 2017 INSTRUCTIONS MEDICATIONS ADMINISTERED No Known [...]
--- OUTSIDE RECORDS SUMMARY | 2019-06-19 05:45 | XMS REPORT ---
Author Author Sydnie HANCOCK [facility] Address [address] [place] [address] Care Team Providers Care Sales And Marketing Assistant Name Role Phone NAHOMY HANCOCK Unavailable PROBLEMS Type Condition ICD9-CM Code AHR05-YU Code Onset Dates Condition S tatus SNOMED Code Problem Hormone replacement therapy Z79.890 Ac tive 629489269 Problem Abnormal CT scan, head R93.0 Active 958896639 Problem Sensorineural hearing loss (SNHL) of both ears H90 .3 Active 545560962 Problem History of colon polyps Z86.010 Active 136327625 Problem Bruising, spontaneous R23.3 Active 562412111 Problem Generalized anxiety disorder F41.1 A ctive 40612166 Problem Arthralgia of hip, unspecified laterality M25.559 Active 45742523 Problem Hematuria, unspecified type R31.9 Ac tive 30581852 Problem Imbalance R26.89 Active 946816044 Problem Hammer toe of right foot M20.41 Activ e 449058500 Problem Plantar wart of right foot B07.0 Act mitchell [id number] Problem Sciatica of left side M54.32 Active 37777560 Problem Hyperlipidemia, unspecified hyperlipidemia type E7 8.5 Active 81387586 Problem Hypertension I10 Active 8305329 3 Problem Night sweats R61 Active 4388488 0 Problem Fibromyalgia M79.7 Active 3165768 7 Problem Major depressive disorder, recurrent episode, moderate F33.1 Active 209798326 Problem Acute left-sided low back pain with left-sided sciatica M54.42 Active 674100791 Problem Bladder spasm N32.89 Active 622935 006 Problem Gastritis without bleeding, unspecified chronicity, unspecified gastritis type K29.70 Active 315488354 Problem Bipolar 1 disorder, mixed F31.60 Acti ve 77201782 Problem Grief F43.20 Active 97349525 Problem Other chronic pain G89.29 Active 8 2624883 Problem Allergic rhinitis J30.9 Active 61 958517 Problem Hot flashes due to menopause N95.1 A ctive 746910346 Problem Ataxia R27.0 Active 70147539 Problem Hearing loss, unspecified laterality H91.90 Active 22904682 ALLERGIES Substance Reaction Event Type Date Status Morphine Sulfate Unknown Drug Allergy Mar, Active Iodine Unknown Drug Allergy Mar, Active Cipro burning stomach Drug Allergy Mar, Active Lyrica 75 Mg Capsule "felt weird" Non Drug Allergy Mar, Act mitchell ENCOUNTERS Encounter Location Date Diagnosis [facility] [address] [facility] [id number] [address] [place] [address] Dec, [facility] [address] [address] Nov, [facility] [address] [address] Nov, [facility] [address] [address] Nov, [facility] [address] [address] October, [facility] [address] [address] October, [facility] [address] [address] October, Insect bite (nonvenomous) of abdominal wall, initial encounter S30.861A ; Bitten or stung by nonvenomous insect and other nonvenomous arthropods, initial encounter W57.XXXA ; Allergic rhinitis J30.9 and Low back pain M54.5 [facility] [address] [place] [id number] [address] [place] [address] October, Bipolar 1 disorder, mixed F3 1.60 [facility] [address] [place] [id number] [address] [place] [address] October, [facility] [address] [address] October, [facility] [address] [id number] [address] [place] [address] October, Bipolar 1 disorder, mixed F3 1.60 [facility] [address] [id number] [address] [place] [address] Sep, Bipolar 1 disorder, mixed F3 1.60 [facility] [address] [id number] [address] [place] [address] Sep, Other chronic pain G89.29 [facility] [address] [id number] [address] [place] [address] Sep, [facility] [address] [id number] [address] [place] [address] Sep, Bipolar 1 disorder, mixed F3 1.60 [facility] [address] [facility] [id number] [address] [place] [address] Sep, Allergic rhinitis J30.9 and Sciatica of left side M54.32 [facility] [address] [id number] [address] [place] [address] Sep, Bipolar 1 disorder, mixed F3 1.60 [facility] [address] [facility] [id number] [address] [place] [address] Sep, Bipolar 1 disorder, mixed F3 1.60 and Generalized anxiety disorder F41.1 [facility] [address] [id number] [address] [place] [address] Aug, [facility] [address] [id number] [address] [place] [address] Aug, Bipolar 1 disorder, mixed F3 1.60 [facility] [address] [id number] [address] [place] [address] Aug, Bipolar 1 disorder, mixed F3 1.60 [facility] [address] [facility] [id number] [address] [place] [address] Aug, [facility] [address] [place] [id number] [address] [place] [address] Aug, Generalized anxiety disorder F41.1 [facility] [address] [place] [id number] [address] [place] [address] Aug, Bipolar 1 disorder, mixed F3 1.60 [facility] [address] [place] [id number] [address] [place] [address] Aug, Plantar wart of right foot B 07.0 [facility] [address] [facility] [id number] [address] [place] [address] Aug, Bipolar 1 disorder, mixed F3 1.60 [place] [address] [address] Jul, Bipolar 1 disorder, mixed F3 1.60 [place] [address] [address] Jul, [facility] [address] [address] Jul, Bipolar 1 disorder, mixed F3 1.60 [facility] [address] [address] Jul, Generalized anxiety disorder F41.1 [facility] [address] [place] [id number] [address] [place] [address] Jul, Bipolar 1 disorder, mixed F3 1.60 [facility] [address] [place] [id number] [address] [place] [address] Jul, Acute left-sided low back pa in with left-sided sciatica M54.42 [place] [address] [place] [id number] [address] [place] [address] 05 Jul, 2017 Coccydynia M53.3 [facility] [address] [facility] [id number] [address] [place] [address] Jun, Bipolar 1 disorder, mixed F3 1.60 [facility] [address] [address] Jun, Acute nasopharyngitis J00 [facility] [address] [address] Jun, Bipolar 1 disorder, mixed F3 1.60 [facility] [address] [address] Jun, Fibromyalgia M79.7 [facility] [address] [address] Jun, Bipolar 1 disorder, mixed F3 1.60 [place] [address] [address] Jun, Fibromyalgia M79.7 and Bipol ar 1 disorder, mixed F31.60 [place] [address] [address] May, Bipolar 1 disorder, mixed F3 1.60 ; Generalized anxiety disorder F41.1 and 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 [address] [address] May, Cough R05 and Body aches R52 [facility] [address] [address] May, Bladder spasm N32.89 and Acu te cystitis without hematuria N30.00 [facility] [address] [address] May, Bipolar 1 disorder, mixed F3 1.60 [facility] [address] [address] Apr, [facility] [address] [address] 29 Nov, 2017 Major depressive disorder, r ecurrent episode, moderate F33.1 and Encounter for immunization Z23 [facility] [address] [place] [id number] [address] [place] [address] Apr, Bipolar 1 disorder, mixed F3 1.60 [facility] [address] [place] [id number] [address] [place] [address] Apr, Bipolar 1 disorder, mixed F3 1.60 [facility] [address] [place] [address] Apr, Bipolar 1 disorder, mixed F3 1.60 [facility] [address] [place] [id number] Apr, Yeast vaginitis B37.3 [facility] [address] [place] [id number] [address] [place], [place] [id number] Apr, Bipolar 1 disorder, mixed F3 1.60 [facility] [address] [address] Apr, Cellulitis L03.[address] for immunization Z23 [place] [address] [address] Apr, Bipolar 1 disorder, mixed F3 1.60 [facility] [address] [place] [id number] [address] [place] [address] Mar, Bipolar 1 disorder, mixed F3 1.60 [place] [address] [place] [address] Mar, Bipolar 1 disorder, mixed F3 1.60 [place] [address] [address] Mar, Imbalance R26.89 [address] En[address] er for immunization Z23 [facility] [address] [place] [id number] [address] [place] [address] Mar, Generalized anxiety disorder F41.1 [place] [address] [place] 1000465 [address] [place] [address] Mar, Bipolar 1 disorder, mixed F3 1.60 [place] [address] [place] [address] Mar, Generalized anxiety disorder F41.1 [place] [address] [place] [id number] [address] [place] [address] Mar, Bipolar 1 disorder, mixed F3 1.60 [place] [address] [address] Mar, Bipolar 1 disorder, mixed F3 1.60 [place] [address] [place] [id number] [place] [address] Feb, Bipolar 1 disorder, mixed F3 1.60 [place] [address] [address] Feb, Bipolar 1 disorder, mixed F3 1.60 and Generalized anxiety disorder F41.1 [place] [address] [address] Feb, Gastritis without bleeding, unspecified chronicity, unspecified gastritis type K29.70 ; Hammer toe of right foot M20.41 and Other viral warts B07.8 [place] [address] [address] Feb, Bipolar 1 disorder, mixed F3 1.60 [place] [address] [place] [id number] [address] [place] [address] Feb, Bipolar 1 disorder, mixed F3 1.60 [place] [address] [place] [id number] [place] [address] 05 Feb, 2017 Bipolar 1 disorder, mixed F3 1.60 [place] [address] [address] Jan, Encounter for screening mamm ogram for breast cancer Z12.31 ; Other viral warts B07.8 and Allergic rhinitis J30.9 [place] [address] [address] Jan, Bipolar 1 disorder, mixed F3 1.60 [facility] [address] [facility] [id number] [address] [place] [address] Jan, Bipolar 1 disorder, mixed F3 1.60 [facility] [address] [facility] [id number] [address] [place] [address] Jan, [facility] [address] [place] [id number] [place] [address] Jan, Bipolar 1 disorder, mixed F3 1.60 [place] [address] [place] [id number] [address] [place] [address] Jan, Bipolar 1 disorder, mixed F3 1.60 [place] [address] [place] [id number] [address] [place] [address] Jan, Allergic rhinitis J30.9 ; He maturia R31.9 and Colon cancer screening Z12.11 [place] [address] [place] [address] Dec, Bipolar 1 disorder, mixed F3 1.60 [place] [address] [place] [address]465 [address] [place] [address] Dec, Bipolar 1 disorder, mixed F3 1.60 ; Generalized anxiety disorder F41.1 and 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 Z79.899 [place] [address] [place] [id number] [address] [place] [address] Dec, Bipolar 1 disorder, mixed F3 1.60 [place] [address] [place] [id number] [address] [place] [address] Dec, Bipolar 1 disorder, mixed F3 1.60 [place] [address] [place] [id number] [address] [place] [address] Dec, Bipolar 1 disorder, mixed F3 1.60 [place] [address] [place] [id number] [address] [place] [address] Dec, Low back pain M54.5 and Recu rrent urinary tract infection N39.0 [facility] [address] [id number] [address] [place] [address] Nov, Bipolar 1 disorder, mixed F3 1.60 [facility] [address] [facility] [id number] [address] [place] [address] Nov, Bipolar 1 disorder, mixed F3 1.60 [facility] [address] [facility] [id number] [address] [place] [address] Nov, Bipolar 1 disorder, mixed F3 1.60 [facility] [address] [id number] [address] [place] [address] Nov, Bipolar 1 disorder, mixed F3 1.60 [facility] [address] [facility] [id number] [address] [place] [address] Nov, [facility] [address] [facility] [id number] [address] [place] [address] Nov, Anesthesia of skin R20.0 ; F requent UTI N39.0 ; Tobacco abuse Z72.0 and Colon cancer screening Z12.11 [facility] [address] [facility] [id number] [address] [place] [address] Nov, Bipolar 1 disorder, mixed F3 1.60 [facility] [address] [facility] [id number] [address] [place] [address] October, Bipolar 1 disorder, mixed F3 1.60 [facility] [address] [facility] [id number] [address] [place] [address] October, Bipolar 1 disorder, mixed F3 1.60 [facility] [address] [facility] [id number] [address] [place] [address] October, Bipolar 1 disorder, mixed F3 1.60 [facility] [address] [facility] [id number] [address] [place] [address] October, Bipolar 1 disorder, mixed F3 1.60 [facility] [address] [facility] [id number] [address] [place] [address] October, Bipolar 1 disorder, mixed F3 1.60 [place] [address] [address] October, Cervicalgia M54.2 and Bipola r 1 disorder, mixed F31.60 [place] [address] [address] October, Hypertension I10 ; Hyperlipi demia, unspecified hyperlipidemia type E78.5 and Family history of thyroid disease Z83.49 [place] [address] [address] October, [place] [address] [place] [address] October, Hypertension I10 ; Hyperlipi demia, unspecified hyperlipidemia type E78.5 and Family history of thyroid problem Z83.49 [place] [address] [address] October, Bipolar 1 disorder, mixed F3 1.60 [place] [address] [address] Sep, Bipolar 1 disorder, mixed F3 1.60 [place] [address] [address] Sep, Bipolar 1 disorder, mixed F3 1.60 [place] [address] [address] Sep, Bipolar 1 disorder, mixed F3 1.60 [place] [address] [address] Sep, History of colon polyps Z86. 010 and Hematochezia K92.1 [place] [address] [address] Sep, Major depressive disorder, r ecurrent episode, moderate F33.1 [place] [address] [address] Sep, Bipolar 1 disorder, mixed F3 1.60 [facility] [address] [facility] [id number] [address] [place] [address] Aug, Hot flashes due to menopause N95.1 [facility] [address] [facility] [id number] [address] [place] [address] Aug, Bipolar 1 disorder, mixed F3 1.60 [facility] [address] [place] [id number] [address] [place] [address] Aug, [facility] [address] [place] [id number] [address] [place] [address] Aug, Bipolar 1 disorder, mixed F3 1.60 [facility] [address] [place] [id number] [address] [place] [address] Aug, Bipolar 1 disorder, mixed F3 1.60 [facility] [address] [place] [id number] [address] [place] [address] Aug, Hot flashes due to menopause N95.1 ; Cervicalgia M54.2 and Ataxia R27.0 [facility] [address] [place] [id number] [address] [place] [address] Jul, Bipolar 1 disorder, mixed F3 1.60 [facility] [address] [place] [id number] [address] [place] [address] Jul, Bipolar 1 disorder, mixed F3 1.60 [facility] [address] [place] [id number] [address] [place] [address] Jul, Bipolar 1 disorder, mixed F3 1.60 [facility] [address] [place] [id number] [address] [place] [address] Jul, Bipolar 1 disorder, mixed F3 1.60 [facility] [address] [place] [id number] [address] [place] [address] Jul, Bipolar 1 disorder, mixed F3 1.60 [facility] [address] [place] [id number] [address] [place] [address] Jul, Cervicalgia M54.2 ; Tremor R 25.1 ; Hearing abnormally acute, unspecified laterality H93.239 ; Alopecia L65.9 ; Encounter for immunization Z23 and Family history of thyroid disease Z83.49 [facility] [address] [place] [address] Jul, Bipolar 1 disorder, mixed F3 1.60 [place] [address] [place] [address] Jun, [place] [address] Jun, Hearing disorder, unspecifie d laterality H93.299 [place] [address] Jun, Bipolar 1 disorder, mixed F3 1.60 [place] [address] [place] [address] Jun, Bipolar 1 disorder, mixed F3 1.60 [place] [address] [address] Jun, Allergic rhinitis J30.9 [place] [address] [place] 7[address] Jun, Bipolar 1 disorder, mixed F3 1.60 [place] [address] [place] 7[address] Jun, Bipolar 1 disorder, mixed F3 1.60 [place] [address] [address] Jun, Allergic rhinitis J30.9 [place] [address] [address] Jun, Allergic rhinitis J30.9 [place] [address] [address] Jun, Bipolar 1 disorder, mixed F3 1.60 [place] [address] [place] [address] May, Bipolar 1 disorder, mixed F3 1.60 [facility] [address] [facility] [id number] [address] [place] [address] May, Bipolar 1 disorder, mixed F3 1.60 [facility] [address] [facility] [id number] [address] [place] [address] May, [facility] [address] [facility] [id number] [address] [place] [address] May, Bipolar 1 disorder, mixed F3 1.60 [facility] [address] [facility] [id number] [address] [place] [address] May, Bipolar 1 disorder, mixed F3 1.60 [facility] [address] [facility] [id number] [address] [place] [address] May, [facility] [address] [place] [id number] [address] [place] [address] May, [facility] [address] [facility] [id number] [address] [place] [address] May, [facility] [address] [facility] [id number] [address] [place] [address] May, Abdominal pain, unspecified location R10.9 [facility] [address] [facility] [id number] [address] [place] [address] May, [facility] [address] [place] [id number] [address] [place] [address] Apr, Hematuria R31.9 ; Ataxia R27 .0 and Hearing loss, unspecified laterality H91.90 [facility] [address] [facility] [id number] [address] [place] [id number] Apr, Bipolar 1 disorder, mixed F3 1.60 [facility] [address] [facility] [id number] [place] [id number] Apr, Acute effusion of both middl e ears H65.193 [place] [address] [address] 10 Apr, 2016 Hematuria R31.9 and Pyelonep hritis N12 [place] [address] [address] Apr, [place] [address] [address] Mar, Bipolar 1 disorder, mixed F3 1.60 [place] [address] [address] Mar, [place] [address] [address] Mar, Bipolar 1 disorder, mixed F3 1.60 [place] [address] [address] Mar, Bipolar 1 disorder, mixed F3 1.60 [place] [address] [address] Mar, Encounter for immunization Z 23 and Gastritis without bleeding, unspecified chronicity, unspecified gastritis type K29.70 [place] [address] [address] Mar, Bipolar 1 disorder, mixed F3 1.60 and Grief F43.20 [place] [address] [address] Mar, Gastritis without bleeding, unspecified chronicity, unspecified gastritis type K29.70 [place] [address] [address] Mar, Bipolar 1 disorder, mixed F3 1.60 [place] [address] [address] Mar, Gastritis without bleeding, unspecified chronicity, unspecified gastritis type K29.70 [place] [address] [address] Mar, [facility] [id number] [place] [address] Feb, Bipolar 1 disorder, mixed F3 1.60 [facility] [address] [place], [place] [address] Feb, Bipolar 1 disorder, mixed F3 1.60 and Grief F43.20 [facility] [address] [place] [id number] Feb, Gastritis without bleeding, unspecified chronicity, unspecified gastritis type K29.70 [facility] [address] [place] [id number] [address] [place] [id number] 14 Feb, 2016 Bipolar 1 disorder, mixed F3 1.60 [facility] WALK IN [facility] [address] [place] [id number] [address] [place] [id number] 09 Feb, 2016 Gastroesophageal reflux dise ase, esophagitis presence not specified K21.9 [facility] [address] [place] [id number] [address] [place] [address] Jan, Bipolar 1 disorder, mixed F3 1.60 [place] [address] [address] Jan, Bipolar 1 disorder, mixed F3 1.60 and Unsteady gait R26.81 [place] [address] [address] Jan, Bipolar 1 disorder, mixed F3 1.60 [facility] [address] [address] Jan, Bipolar 1 disorder, mixed F3 1.60 and 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 Z79.899 [place] [address] [address] Jan, Bipolar 1 disorder, mixed F3 1.60 [facility] [address] [place] [id number] [place] [address] [id number] Jan, Bipolar 1 disorder, mixed F3 1.60 [facility] [address] [facility] [id number] [address] [place] [id number] Jan, Bipolar 1 disorder, mixed F3 1.60 ; Grief F43.20 and 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 Z79.899 [facility] [address] [facility] [id number] [address] [place] [phone] Jan, Bipolar 1 disorder, mixed F3 1.60 [facility] [address] [facility] [id number] [address] [place] [phone] Dec, [place] [address] [facility] [id number] [address] [place] [phone] Dec, Bipolar 1 disorder, mixed F3 1.60 ; Vitamin D deficiency, unspecified E55.9 ; H/O allergic rhinitis Z87.09 ; Other chronic pain G89.29 and Dorsalgia, unspecified M54.9 [place] [address] [facility] [id number] [address] [place] [phone] Dec, [place] [address] [facility] [id number] [address] [place] [id number] Dec, Bipolar 1 disorder, mixed F3 1.60 [place] [address] [facility] [id number] [address] [place] [phone] Dec, Major depressive disorder, r ecurrent episode, moderate F33.1 [place] [address] [facility] [id number] [address] [place] [phone] Dec, Major depressive disorder, r ecurrent episode, moderate F33.1 [place] [address] [facility] [id number] [address] [place] [phone] Nov, [facility] [address] [facility] [id number] [address] [place] [id number] Nov, Bipolar 1 disorder, mixed F3 1.60 [facility] [address] [facility] [id number] [address] [place] [id number] Nov, Major depressive disorder, r ecurrent episode, moderate F33.1 [facility] [address] [id number] [address] [place] [phone] Nov, Cervicalgia M54.2 ; Arthralg ia of hip, unspecified laterality M25.559 ; Allergic rhinitis J30.9 and Hormone replacement therapy Z79.890 [facility] [address] [facility] [id number] [address] [place] [address] 13 Nov, 2015 Other seasonal allergic rhin itis J30.2 [facility] [address] [facility] [id number] [address] [place] [phone] October, Major depressive disorder, r ecurrent episode, moderate F33.1 [place] [address] [facility] [id number] [address] [place] [phone] October, Major depressive disorder, r ecurrent episode, moderate F33.1 and Arthralgia of hip, unspecified laterality M25.559 [place] [address] [facility] [id number] [address] [place] [phone] October, Grief F43.20 ; Hypertension I10 ; Hyperlipidemia, unspecified hyperlipidemia type E78.5 ; Other chronic pain G89.29 and Allergic rhinitis, unspecified allergic rhinitis type J30.9 [place] [address] [facility] [id number] [address] [place] [phone] October, Major depressive disorder, r ecurrent episode, moderate F33.1 [place] [address] [facility] [id number] [address] [place] [phone] Sep, Major depressive disorder, r ecurrent episode, moderate F33.1 [place] [address] [facility] [id number] [address] [place] [phone] Sep, [place] [address] [facility] [id number] [address] [place] [phone] Sep, Major depressive disorder, r ecurrent episode, moderate F33.1 [place] [address] [facility] [id number] [address] [place] [id number] Sep, Grief F43.20 [facility] [address] [facility] [id number] [address] [place] [phone] Aug, Major depressive disorder, r ecurrent episode, moderate F33.1 [place] [address] [place] [id number] [address] [place] [phone] Aug, Bipolar 1 disorder, mixed F3 1.60 [place] [address] [place] [id number] [place] [address] Aug, Allergic rhinitis J30.9 ; Ce rvicalgia M54.2 and Low back pain M54.5 [place] [address] [place] [id number] [place] [address] Aug, Major depressive disorder, r ecurrent episode, moderate F33.1 [facility] [address] [place] [id number] [address] [place] [phone] Aug, Sinusitis J32.9 and Tobacco 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 [place] [address] [place] [id number] [address] [place] [phone] Aug, [place] [address] [address] Aug, Depressive disorder, not els ewhere classified F32.9 ; Hormone replacement therapy Z79.[address] scan, head R93.0 [place] [address] [place] [id number] [address] [place] [phone] Aug, Major depressive disorder, r ecurrent episode, moderate F33.1 [place] [address] [place] [id number] [address] [place] [phone] Jul, Major depressive disorder, r ecurrent episode, moderate F33.1 [place] [address] [place] [id number] [address] [place] [phone] Jul, Abdominal pain R10.9 and Hyp ertension I10 [place] [address] [place] [id number] [address] [place] [phone] Jul, [facility] [address] [id number] [address] [place] [phone] Jul, Major depressive disorder, r ecurrent episode, moderate F33.1 [facility] [address] [id number] [address] [place] [phone] Jul, [facility] [address] [id number] [address] [place] [phone] Jul, [facility] [address] [id number] [address] [place] [phone] Jun, [facility] [address] [id number] [address] [place] [id number] Jun, Depressive disorder, not els ewhere classified F32.9 [facility] [address] [id number] [address] [place] [phone] Jun, [facility] [address] [facility] [id number] [address] [place] [phone] Jun, [facility] [address] [facility] [id number] [address] [place] [phone] Jun, Arthralgia of hip, unspecifi ed laterality M25.559 ; Bruising, spontaneous R23.3 and Night sweats R61 [facility] [address] [id number] [address] [place] [phone] Jun, [facility] [address] [facility] [id number] [address] [place] [phone] Jun, [facility] [address] [facility] [id number] [address] [place] [phone] May, [facility] [address] [facility] [id number] [address] [place] [address] May, Myalgia M79.1 and Screening, lipid Z13.220 [facility] [address] [facility] [id number] [address] [place] [phone] Apr, Status post cervical spinal fusion Z98.1 ; Fibromyalgia M79.7 and Unsteady gait R26.81 [facility] [address] [id number] [address] [place] [phone] Nov, [facility] [address] [id number] [address] [place] [phone] Nov, [facility] [address] [facility] [id number] [address] [place] [id number] October, [facility] [address] [id number] [address] [place] [phone] October, [facility] [address] [facility] [id number] [address] [place] [phone] October, [facility] [address] [facility] [id number] [address] [place] [phone] October, [facility] [address] [facility] [id number] [address] [place] [phone] October, [facility] [address] [facility] [id number] [address] [place] [phone] October, Dysuria 788.1 ; Nausea 787.0 2 and Urinary tract infection 599.0 [facility] [address] [facility] [id number] [address] [place] [phone] Sep, [facility] [address] [facility] [id number] [address] [place] [phone] Sep, [facility] [address] [facility] [id number] [address] [place] [phone] Aug, [facility] [address] [facility] [id number] [address] [place] [phone] Aug, [facility] [address] [facility] [id number] [address] [place] [phone] Aug, [facility] [address] [facility] [id number] [address] [place] [phone] Aug, [facility] [address] [id number] [address] [place] [address] [place] [address] 23 Aug, 2014 [facility] [address] [id number] [facility] [place] [address] 19 Aug, 2014 [facility] [address] [id number] [address] [place] [address], [place] [id number] 19 Aug, 2014 [facility] [address] [id number] [address] [place] [address], [place] [address] 19 Aug, 2014 [facility] [address] [id number] [address] [place] [address], [place] [address] 19 Aug, 2014 [facility] [address] [id number] [address] [place] [address], [place] [address] 18 Aug, 2014 [facility] [address] [id number] [address] [place] [address], [place] [address] 18 Aug, 2014 [facility] [address] [id number] [address] [place] [address], [place] [address] 13 Aug, 2014 [facility] [address] [id number] [address] [place] [address], [place] [address] 13 Aug, 2014 [facility] [address] [id number] [address] [place] [address], [place] [address] 11 Aug, 2014 [facility] [address] [id number] [address] [place] [address], [place] [address] 11 Aug, 2014 [facility] [address] [id number] [address] [place] [address], [place] [address] 06 Aug, 2014 [facility] [address] [id number] [address] [place] [address], [place] [id number] 06 Aug, 2014 [facility] [address] [id number] [address] [place] [address], [place] [address] 05 Aug, 2014 [facility] [address] [id number] [address] [place] [address], [place] [id number] 05 Aug, 2014 [facility] [address] [id number] [address] [place] [address], [place] [address] 04 Aug, 2014 [facility] [address] [id number] [address] [place] [address], [place] [address] Aug, [facility] [address] [id number] [address] [place] [address], [place] [id number] Aug, [facility] [address] [id number] [address] [place] [address], [place] [id number] Jul, 2014 [facility] [address] [id number] [address] [place] [address], [place] [id number] Jul, 2014 [facility] [address] [id number] [address] [place] [address], [place] [address] Jul, 2014 [facility] [address] [id number] [address] [place] [address], [place] [address] Jul, 2014 [facility] [address] [id number] [address] [place] [address], [place] [id number] Jul, 2014 [facility] [address] [id number] [address] [place] [address], [place] [address] Jul, 2014 [facility] [address] [id number] [address] [place] [address], [place] [id number] Jul, 2014 [facility] [address] [id number] [address] [place] [address], [place] [address] Jul, 2014 [facility] [address] [id number] [address] [place] [address], [place] [address] Jul, 2014 [facility] [address] [id number] [address] [place] [address], [place] [address] Jul, 2014 [facility] [address] [id number] [address] [place] [address], [place] [id number] Jul, 2014 [facility] [address] [id number] [address] [place] [address], [place] [address] Jul, 2014 [facility] [address] [id number] [address] [place] [address], [place] [address] Jul, 2014 [facility] [address] [id number] [address] [place] [address], [place] [address] Jul, [facility] [place] [address] [id number] [address] [place] [address], [place] [id number] Jun, [facility] [address] [id number] [address] [place] [address], [place] [id number] Jun, [facility] [place] [address] [id number] [address] [place] [address], [place] [id number] Jun, [facility] [address] [id number] [address] [place] [address], [place] [id number] Jun, [facility] [address] [id number] [address] [place] [address], [place] [address] Jun, [facility] [place] [address] [id number] [address] [place] [address], [place] [address] Jun, [facility] [place] [address] [id number] [address] [place] [address], [place] [address] May, [facility] [place] [address] [id number] [address] [place] [address], [place] [address] May, [facility] [place] [address] [id number] [address] [place] [address], [place] [address] May, [facility] [address] [id number] [address] [place] [address], [place] [address] May, [facility] [address] [id number] [address] [place] [address], [place] [address] May, [facility] [address] [id number] [address] [place] [address], [place] [address] May, [facility] [address] [id number] [address] [place] [address], [place] [address] Apr, [facility] [address] [id number] [address] [place] [address], [place] [address] Apr, [facility] [address] [id number] [address] [place] [address], [place] [address] Apr, [facility] [address] [id number] [address] [place] [address], [place] [address] Apr, [facility] [address] [id number] [address] [place] [address], [place] [address] Apr, [facility] [address] [id number] [address] [place] [address], [place] [address] Apr, [facility] [address] [id number] [address] [place] [address], [place] [address] Mar, [facility] [address] [id number] [address] [place] [address], [place] [address] Mar, [facility] [address] [id number] [address] [place] [address], [place] [address] Mar, [facility] [address] [id number] [address] [place] [address], [place] [address] Mar, [facility] [address] [id number] [address] [place] [id number] Mar, [facility] [address] [id number] [address] [place] [id number] Mar, [facility] [address] [id number] [address] [place] [id number] Mar, [facility] [address] [id number] [address] [place] [id number] Mar, [facility] [address] [id number] [address] [place] [phone] Mar, [facility] [address] [id number] [address] [place] [id number] Mar, [facility] [address] [id number] [address] [place] [id number] Mar, [facility] [address] [id number] [address] [place] [id number] Mar, [facility] [address] [id number] [address] [place] [id number] 30 Feb, 2014 [facility] [address] [id number] [address] [place] [address], [place] [address] 29 Feb, 2014 [facility] [address] [id number] [address] [place] [address], [place] [address] 29 Feb, 2014 [facility] [address] [id number] [address] [place] [address], [place] [address] Feb, [facility] [address] [id number] [address] [place] [address], [place] [address] Feb, [facility] [address] [id number] [address] [place] [address], [place] [address] Feb, [facility] [address] [id number] [address] [place] [address], [place] [address] Feb, [facility] [address] [id number] [address] [place] [address], [place] [address] Jan, [facility] [address] [id number] [address] [place] [address], [place] [address] Jan, [facility] [address] [id number] [address] [place] [address], [place] [address] Jan, [facility] [address] [id number] [address] [place] [address], [place] [address] Dec, [facility] [address] [id number] [address] [place] [address], [place] [address] Dec, [facility] [address] [id number] [address] [place] [address], [place] [address] Dec, [facility] [address] [id number] [address] [place] [address], [place] [address] Dec, [facility] [address] [id number] [address] [place] [address], [place] [address] Sep, [facility] [address] [id number] [address] [place] [address], [place] [address] Sep, [facility] [address] [id number] [facility] [place] [address] Sep, [facility] [address] [id number] [address] [place] [address], [place] [address] Sep, [facility] [address] [id number] [address] [place] [address], [place] [address] Sep, [facility] [address] [id number] [address] [place] [address], [place] [id number] Sep, [facility] [address] [id number] [address] [place] [address], [place] [id number] Sep, [facility] [address] [id number] [address] [place] [address], [place] [id number] Sep, [facility] [address] [id number] [address] [place] [address], [place] [id number] Aug, [facility] [address] [id number] [address] [place] [address], [place] [id number] Aug, [facility] [address] [id number] [address] [place] [address], [place] [id number] May, [facility] [address] [id number] [address] [place] [address], [place] [id number] May, [facility] [address] [id number] [address] [place] [address], [place] [id number] Apr, [facility] [address] [id number] [address] [place] [address], [place] [id number] Apr, [facility] [address] [id number] [address] [place] [address], [place] [id number] Apr, [facility] [address] [id number] [address] [place] [address], [place] [id number] Apr, [facility] [address] [id number] [address] [place] [address], [place] [id number] Apr, [facility] [address] [id number] [address] [place] [address], [place] [id number] Apr, [facility] [address] [id number] [address] [place] [address], [place] [id number] 18 May, 2012 [facility] [address] [id number] [address] [place] [address], [place] [id number] 18 May, 2012 [facility] [address] [id number] [address] [place] [address], [place] [id number] 15 May, 2012 [facility] [address] [id number] [address] [place] [address], [place] [id number] 15 May, 2012 [facility] [address] [id number] [address] [place] [address], [place] [id number] 13 May, 2012 [facility] [address] [id number] [address] [place] [address], [place] [id number] 13 May, 2012 [facility] [address] [id number] [address] [place] [address], [place] [id number] 13 Apr, 2012 [facility] [address] [id number] [address] [place] [address], [place] [id number] 13 Apr, 2012 [facility] [address] [id number] [address] [place] [address], [place] [id number] Apr, [facility] [address] [id number] [address] [place] [address], [place] [id number] Apr, [facility] [address] [id number] [address] [place] [address], [place] [id number] Apr, [facility] [address] [id number] [address] [place] [id number] Apr, [facility] [address] [id number] [address] [place] [address], [place] [id number] Apr, [facility] [address] [id number] [address] [place] [address], [place] [id number] Apr, [facility] [address] [id number] [address] [place] [address], [place] [id number] Apr, [facility] [address] [id number] [address] [place] [address], [place] [id number] Apr, [facility] [address] [id number] [address] [place] [address], [place] [id number] Mar, [facility] [address] [id number] [address] [place] [address], [place] [id number] Mar, [facility] [address] [id number] [address] [place] [address], [place] [id number] Mar, [facility] [address] [id number] [address] [place] [address], [place] [id number] Mar, [facility] [address] [id number] [address] [place] [address], [place] [id number] Mar, [facility] [address] [id number] [address] [place] [address], [place] [id number] Mar, [facility] [address] [id number] [address] [place] [address], [place] [id number] Mar, [facility] [address] [id number] [address] [place] [address], [place] [id number] Mar, [facility] [address] [id number] [address] [place] [address], [place] [id number] Mar, [facility] [address] [id number] [address] [place] [address], [place] [id number] Feb, [facility] [address] [id number] [address] [place] [address], [place] [id number] 16 Feb, 2012 [facility] [address] [id number] [address] [place] [address], [place] [id number] Feb, [facility] [address] [id number] [address] [place] [address], [place] [id number] Jan, [facility] [address] [id number] [address] [place] [address], [place] [id number] Jan, [facility] [address] [id number] [address] [place] [address], [place] [id number] Jan, [facility] [facility] [address] [id number] [facility] [place] [phone] Jan, [facility] [address] [id number] [address] [place] [address], [place] [id number] Jan, [facility] [address] [id number] [address] [place] [address], [place] [phone] Jan, [facility] [address] [id number] [address] [place] [address], [place] [id number] 16 Jan, 2012 [facility] [address] [id number] [address] [place] [address], [place] [address] Jan, [facility] [address] [id number] [address] [place] [address], [place] [phone] Jan, [facility] [address] [id number] [address] [place] [address], [place] [id number] Jan, [facility] [address] [id number] [address] [place] [address], [place] [phone] Dec, [facility] [address] [id number] [address] [place] [address], [place] [address] Dec, [facility] [address] [id number] [address] [place] [address], [place] [phone] Dec, [facility] [address] [id number] [address] [place] [address], [place] [id number] Dec, [facility] [address] [id number] [address] [place] [address], [place] [phone] Nov, [facility] [address] [id number] [address] [place] [address], [place] [address] Nov, [facility] [address] [id number] [address] [place] [address], [place] [phone] Nov, [facility] [address] [id number] [address] [place] [address], [place] [address] October, [facility] [address] [id number] [address] [address] October, [facility] [address] [id number] [address] [place] [phone] October, [facility] [address] [id number] [address] [place] [phone] October, [facility] [address] [id number] [address] [place] [phone] October, [facility] [address] [id number] [address] [place] [phone] October, [facility] [address] [id number] [address] [place] [phone] Aug, [facility] [address] [id number] [address] [place] [phone] Mar, [facility] [address] [id number] [address] [place] [phone] Nov, [facility] [address] [id number] [address] [place] [phone] May, [facility] [address] [id number] [address] [place] [phone] May, [facility] [address] [id number] [address] [place] [phone] Apr, [facility] [address] [id number] [address] [place] [phone] Mar, [facility] [address] [id number] [address] [place] [phone] Mar, IMMUNIZATIONS Vaccine Route Administration Date Status FLUARIX QUAD (3 AND UP) 2017 IM Intramuscular Apr 05, 2017 Ad ministered SOCIAL HISTORY Never Assessed REASON FOR VISIT Depression / flu shot, now new concerns-Nazia ACEVEDO PLAN OF CARE Activity Details Follow Up 4 Weeks Reason: VITAL SIGNS Height 64 in 2017-04-05 Weight 156.5 lbs 2017-04-05 Temperature 98.5 degrees Fahrenheit 2017-04-05 Heart Rate 81 bpm 2017-04-05 Respiratory Rate 20 2017-04-05 BMI 26.86 kg/m2 2017-04-05 Blood pressure systolic 132 mmHg 2017-04-05 Blood pressure diastolic 82 mmHg 2017-04-05 MEDICATIONS Medication Instructions Dosage Frequency Start Date End Date Duration S barrettus Probiotic Acidophilus Ac tive [id number] 1 MG Active Nitrofurantoin Macrocrystal 100 MG Orally Once a day 1 cap isabel with food or milk 24h Active Pantoprazole Sodium 20 MG TAKE 1 TABLET BY MOUTH ONCE DAILY 30 Active Estradiol 2 MG Orally Once a day 1 tablet 24h Active Myrbetriq 50 MG Orally Once a day 1 tablet 24h Active Selenium 50 MCG Orally Once a day 1 tablet 24h Active Magnesium 500 MG Orally Once a day 1 tablet with a meal 24h Dec, Active Flexeril 10 mg by oral route 2 times a day 1 tablet 12h Aug, 30 Active HydrOXYzine HCl 10 mg Orally BID prn anxiety, MAX 45 tabs monthly 1 t ablet 30 days Active Voltaren 1 % Transdermal 4 times a day on neck Active Cetirizine HCl 10 mg Orally Once a day 1 tablet 24h Jan, 7 Jan, 90 days Active Melatonin 5 MG Orally at bedtime 1 Tablet by Oral route 1 time per day HS Active Vitamin D3 2000 UNIT Orally Once a day as directed 24h Dec, Active Fetzima 120 mg Orally Once a day TAKE 1 CAPSULE BY MOUTH DAILY 24h 30 days Active Vagifem 10 MCG Vaginal Two times a Week 1 tablet Active Mucinex 600 MG Orally every 12 hrs 1 tablet as needed 12h Active Flonase 50 MCG/ACT Nasally twice a day 1 spray in each nostril 12h Jan, Active Multi Vitamin Daily Orally Once a day 1 tablet 24h Active Ibuprofen 200 MG Orally every 6 hrs 1 tablet as needed 6h Active Depakote ER 500 mg Orally at bedtime 2 tabs 30 days Active RESULTS No Results PROCEDURES Procedure Date Ordered Result Body Site FLUARIX QUAD (3 & UP)-[id number] 05, 2017 SINGLE IMMUNIZATION ADMIN Apr 05, 2017 FQ VISIT ESTABLISHED PATIENT Apr 05, 2017 [facility] Visit needs to be added with another visit on the [facility] day Apr 05, 2017 INSTRUCTIONS MEDICATIONS ADMINISTERED No [...]
--- OUTSIDE RECORDS SUMMARY | 2019-06-19 05:45 | XMS REPORT ---
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 Name Role Phone JOHN MORTON Unavailable PROBLEMS Type Condition ICD9-CM Code BPR29-GW Code Onset Dates Condition S tatus SNOMED Code Problem Hormone replacement therapy Z79.890 Ac tive 834200270 Problem Abnormal CT scan, head R93.0 Active 887958699 Problem Sensorineural hearing loss (SNHL) of both ears H90 .3 Active 167442547 Problem History of colon polyps Z86.010 Active 111295134 Problem Bruising, spontaneous R23.3 Active 056285867 Problem Generalized anxiety disorder F41.1 A ctive 69032352 Problem Arthralgia of hip, unspecified laterality M25.559 Active 85352708 Problem Hematuria, unspecified type R31.9 Ac tive 83424103 Problem Imbalance R26.89 Active 160089214 Problem Hammer toe of right foot M20.41 Activ e 011141608 Problem Plantar wart of right foot B07.0 Act mitchell [id number] Problem Sciatica of left side M54.32 Active 86917641 Problem Hyperlipidemia, unspecified hyperlipidemia type E7 8.5 Active 29491433 Problem Hypertension I10 Active 1676143 3 Problem Night sweats R61 Active 3745789 0 Problem Fibromyalgia M79.7 Active 9999144 7 Problem Major depressive disorder, recurrent episode, moderate F33.1 Active 869068501 Problem Acute left-sided low back pain with left-sided sciatica M54.42 Active 238717337 Problem Bladder spasm N32.89 Active 858746 006 Problem Gastritis without bleeding, unspecified chronicity, unspecified gastritis type K29.70 Active 251896454 Problem Bipolar 1 disorder, mixed F31.60 Acti ve 91609418 Problem Grief F43.20 Active 02786962 Problem Other chronic pain G89.29 Active 8 9512908 Problem Allergic rhinitis J30.9 Active 61 798883 Problem Hot flashes due to menopause N95.1 A ctive 884473340 Problem Ataxia R27.0 Active 36262203 Problem Hearing loss, unspecified laterality H91.90 Active 33561168 ALLERGIES No Information ENCOUNTERS Encounter Location Date Diagnosis [facility] [address] [facility] [id number] [address] [place] [id number] Dec, [facility] [address] [facility] [id number] [address] [place] [address] Nov, [facility] [address] [facility] [id number] [address] [place] [phone] October, [facility] [address] [facility] [id number] [address] [place] [address] October, [facility] [address] [facility] [id number] [address] [place] [phone] October, [facility] [address] [facility] [id number] [address] [place] [address] October, [facility] [address] [facility] [id number] [address] [place] [address] Sep, Bipolar 1 disorder, mixed F3 1.60 [facility] [address] [facility] [id number] [address] [place] [phone] Sep, [facility] [address] [facility] [id number] [address] [place] [address] Sep, [facility] [address] [facility] [id number] [address] [place] [address] Sep, Bipolar 1 disorder, mixed F3 1.60 [facility] [address] [facility] [id number] [address] [place] [address] Sep, Allergic rhinitis J30.9 and Sciatica of left side M54.32 [facility] [address] [facility] [id number] [address] [place] [phone] Sep, Bipolar 1 disorder, mixed F3 1.60 [facility] [address] [place] [id number] [address] [place] [id number] Sep, Bipolar 1 disorder, mixed F3 1.60 and Generalized anxiety disorder F41.1 [facility] [address] [facility] [id number] [address] [place] [phone] Aug, [facility] [address] [facility] [id number] [address] [place] [address] Aug, Bipolar 1 disorder, mixed F3 1.60 [facility] [address] [facility] [id number] [address] [place] [phone] Aug, Bipolar 1 disorder, mixed F3 1.60 [facility] [address] [facility] [id number] [address] [place] [phone] Aug, [facility] [address] [facility] [id number] [address] [place] [address] Aug, Generalized anxiety disorder F41.1 [facility] [address] [facility] [id number] [address] [place] [phone] Aug, Bipolar 1 disorder, mixed F3 1.60 [facility] [address] [facility] [id number] [address] [place] [id number] Aug, Plantar wart of right foot B 07.0 [facility] [address] [facility] [id number] [address] [place] [address] Aug, Bipolar 1 disorder, mixed F3 1.60 [facility] [address] [facility] [id number] [address] [place] [address] Jul, Bipolar 1 disorder, mixed F3 1.60 [facility] [address] [facility] [id number] [address] [place] [address] Jul, [facility] [address] [facility] [id number] [address] [place] [address] Jul, Bipolar 1 disorder, mixed F3 1.60 [facility] [address] [facility] [id number] [address] [place] [address] Jul, Generalized anxiety disorder F41.1 [facility] [address] [facility] [id number] [address] [place] [id number] 07 Jul, 2017 Bipolar 1 disorder, mixed F3 1.60 [facility] [address] [facility] [id number] [address] [place] [phone] Jul, Acute left-sided low back pa in with left-sided sciatica M54.42 [place] [address] [facility] [id number] [address] [place] [address] Jul, Coccydynia M53.3 [place] [address] [facility] [id number] [address] [place] [address] Jun, Bipolar 1 disorder, mixed F3 1.60 [facility] [id number] [address] [place] [phone] Jun, Acute nasopharyngitis J00 [place] [address] [facility] [id number] [address] [place] [phone] Jun, Bipolar 1 disorder, mixed F3 1.60 [place] [address] [facility] [id number] [address] [place] [phone] Jun, Fibromyalgia M79.7 [place] [address] [facility] [id number] [address] [place] [address] Jun, Bipolar 1 disorder, mixed F3 1.60 [place] [address] [facility] [id number] [address] [place] [phone] Jun, Fibromyalgia M79.7 and Bipol ar 1 disorder, mixed F31.60 [place] [id number] [facility] [id number] [address] [place] [address] May, Bipolar 1 disorder, mixed F3 1.60 ; Generalized anxiety disorder F41.1 and 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 [place] [id number] [facility] [id number] [address] [place] [address] May, Bipolar 1 disorder, mixed F3 1.60 [facility] [address] [place] [id number] [address] [place] [phone] 14 May, 2017 Cough R05 and Body aches R52 [facility] [address] [address] 10 May, 2017 Bladder spasm N32.89 and Acu te cystitis without hematuria N30.00 [place] [address] [address] 07 May, 2017 Bipolar 1 disorder, mixed F3 1.60 [place] [address] [address] Apr, [place] [address] [id number] Apr, Major depressive disorder, r ecurrent episode, moderate F33.1 and Encounter for immunization Z23 [place] [address] [address] Apr, Bipolar 1 disorder, mixed F3 1.60 [place] [address] [address] Apr, Bipolar 1 disorder, mixed F3 1.60 [place] [address] [address] 16 Apr, 2017 Bipolar 1 disorder, mixed F3 1.60 [place] [address] [address] Apr, Yeast vaginitis B37.3 [place] [address] [address] Apr, Bipolar 1 disorder, mixed F3 1.60 [facility] [address] [address] Apr, Encounter for immunization Z 23 and Cellulitis L03.90 [place] [address] [address] Apr, Bipolar 1 disorder, mixed F3 1.60 [place] [address] [place] [id number] [address] [place] [address] Mar, Bipolar 1 disorder, mixed F3 1.60 [place] [address] [place] [id number] Mar, Bipolar 1 disorder, mixed F3 1.60 [place] [address] [place] [address] Mar, Imbalance R26.89 and Encount er for immunization Z23 [place] [address] [address] Mar, Generalized anxiety disorder F41.1 [place] [address] [address] Mar, Bipolar 1 disorder, mixed F3 1.60 [place] [address] [address] Mar, Generalized anxiety disorder F41.1 [place] [address] [address] Mar, Bipolar 1 disorder, mixed F3 1.60 [place] [address] [address] Mar, Bipolar 1 disorder, mixed F3 1.60 [place] [address] [address] Feb, Bipolar 1 disorder, mixed F3 1.60 [place] [address] [place] [id number] [address] [place] [address] Feb, Bipolar 1 disorder, mixed F3 1.60 and Generalized anxiety disorder F41.1 [place] [address] [address] [place] [id number] [address] [place] [address] Feb, Gastritis without bleeding, unspecified chronicity, unspecified gastritis type K29.70 ; Hammer toe of right foot M20.41 and Other viral warts B07.8 [place] [address] [address] [place] [id number] [place] [address] 20 Feb, 2017 Bipolar 1 disorder, mixed F3 1.60 [place] [address] [place] [id number] [address] [place] [phone] 13 Feb, 2017 Bipolar 1 disorder, mixed F3 1.60 [place] [address] [place] [id number] [address] [place] [phone] 05 Feb, 2017 Bipolar 1 disorder, mixed F3 1.60 [place] [address] [place] [id number] [address] [place] [address] Jan, Encounter for screening mamm ogram for breast cancer Z12.31 ; Other viral warts B07.8 and Allergic rhinitis J30.9 [place] [address] [place] [id number] [address] [place] [address] Jan, Bipolar 1 disorder, mixed F3 1.60 [place] [address] [address] Jan, Bipolar 1 disorder, mixed F3 1.60 [place] [id number] [place] [address] Jan, [place] [address] [place] [id number] [place] [address] Jan, Bipolar 1 disorder, mixed F3 1.60 [place] [address] [place] [address] Jan, Bipolar 1 disorder, mixed F3 1.60 [place] [address] [place] [id number] [address] [place] [address] Jan, Allergic rhinitis J30.9 ; He maturia R31.9 and Colon cancer screening Z12.11 [place] [address] [address] [place] [id number] [address] [place] [address] Dec, Bipolar 1 disorder, mixed F3 1.60 [place] [address] [place] [id number] [address] [place] [address] Dec, Bipolar 1 disorder, mixed F3 1.60 ; Generalized anxiety disorder F41.1 and Other long term care pharmacist (current) drug therapy Z79.899 [place] [id number] [facility] [id number] [address] [place] [address] Dec, Bipolar 1 disorder, mixed F3 1.60 [facility] [address] [facility] [id number] [address] [place] [address] Dec, Bipolar 1 disorder, mixed F3 1.60 [facility] [address] [facility] [id number] [address] [place] [address] Dec, Bipolar 1 disorder, mixed F3 1.60 [place] [address] [address] [place] [id number] [address] [place] [phone] Dec, Low back pain M54.5 and Recu rrent urinary tract infection N39.0 [place] [address] [address] [facility] [id number] [address] [place] [address] Nov, Bipolar 1 disorder, mixed F3 1.60 [facility] [address] [facility] [id number] [address] [place] [address] Nov, Bipolar 1 disorder, mixed F3 1.60 [place] [address] [address] [facility] [id number] [address] [place] [address] Nov, Bipolar 1 disorder, mixed F3 1.60 [facility] [address] [facility] [id number] [address] [place] [address] Nov, Bipolar 1 disorder, mixed F3 1.60 [facility] [address] [facility] [id number] [address] [place] [address] Nov, [place] [address] [address] [facility] [id number] [address] [place] [address] Nov, Anesthesia of skin R20.0 ; F requent UTI N39.0 ; Tobacco abuse Z72.0 and Colon cancer screening Z12.11 [facility] [address] [facility] [id number] [address] [place] [address] Nov, Bipolar 1 disorder, mixed F3 1.60 [facility] [address] [facility] [id number] [address] [place] [address] October, Bipolar 1 disorder, mixed F3 1.60 [facility] [address] [facility] [id number] [address] [place] [address] October, Bipolar 1 disorder, mixed F3 1.60 [facility] [address] [facility] [id number] [address] [place] [address] October, Bipolar 1 disorder, mixed F3 1.60 [facility] [address] [facility] [id number] [address] [place] [address] October, Bipolar 1 disorder, mixed F3 1.60 [facility] [address] [place] [id number] [address] [place] [address] October, Bipolar 1 disorder, mixed F3 1.60 [facility] [address] [place] [id number] [address] [place] [address] October, Cervicalgia M54.2 and Bipola r 1 disorder, mixed F31.60 [facility] [address] [facility] [id number] [address] [place] [address] October, Hypertension I10 ; Hyperlipi demia, unspecified hyperlipidemia type E78.5 and Family history of thyroid disease Z83.49 [facility] [address] [facility] [id number] [address] [place] [address] October, [facility] [address] [facility] [id number] [address] [place] [address] October, Hypertension I10 ; Hyperlipi demia, unspecified hyperlipidemia type E78.5 and Family history of thyroid problem Z83.49 [facility] [address] [facility] [id number] [address] [place] [address] October, Bipolar 1 disorder, mixed F3 1.60 [facility] [address] [facility] [id number] [address] [place] [address] Sep, Bipolar 1 disorder, mixed F3 1.60 [facility] [address] [place] [id number] [address] [place] [address] Sep, Bipolar 1 disorder, mixed F3 1.60 [facility] [address] [address] Sep, Bipolar 1 disorder, mixed F3 1.60 [facility] [address] [place] [id number] [place] [address] Sep, History of colon polyps Z86. 010 and Hematochezia K92.1 [place] [address] [address] [place] [id number] [address] [place] [address] Sep, Major depressive disorder, r ecurrent episode, moderate F33.1 [place] [address] [address] [place] [id number] [place] [address] Sep, Bipolar 1 disorder, mixed F3 1.60 [place] [address] [address] Aug, Hot flashes due to menopause N95.1 [place] [address] [place] [id number] [place] [phone] Aug, Bipolar 1 disorder, mixed F3 1.60 [place] [address] [address] [place] [id number] [address] [place] [address] Aug, [place] [address] [address] Aug, Bipolar 1 disorder, mixed F3 1.60 [place] [address] [address] Aug, Bipolar 1 disorder, mixed F3 1.60 [place] [address] [address] Aug, Hot flashes due to menopause N95.1 ; Cervicalgia M54.2 and Ataxia R27.0 [facility] [address] [place] [id number] [address] [place] [address] Jul, Bipolar 1 disorder, mixed F3 1.60 [facility] [address] [address] Jul, Bipolar 1 disorder, mixed F3 1.60 [place] [address] [place] [id number] Jul, Bipolar 1 disorder, mixed F3 1.60 [place] [address] [address] Jul, Bipolar 1 disorder, mixed F3 1.60 [place] [address] [address] Jul, Bipolar 1 disorder, mixed F3 1.60 [place] [address] [address] 08 Jul, 2016 Cervicalgia M54.2 ; Tremor R 25.1 ; Hearing abnormally acute, unspecified laterality H93.239 ; Alopecia L65.9 ; Encounter for immunization Z23 and Family history of thyroid disease Z83.49 [place] [address] [address] Jul, Bipolar 1 disorder, mixed F3 1.60 [place] [address] [address] Jun, [place] [address] [address] Jun, Hearing disorder, unspecifie d laterality H93.299 [place] [address] [address] Jun, Bipolar 1 disorder, mixed F3 1.60 [place] [address] [address] Jun, Bipolar 1 disorder, mixed F3 1.60 [place] [address] [address] Jun, Allergic rhinitis J30.9 [place] [address] [place] [address] Jun, Bipolar 1 disorder, mixed F3 1.60 [facility] [address] [id number] [address] [place] [address] Jun, Bipolar 1 disorder, mixed F3 1.60 [facility] [address] [facility] [id number] [address] [place] [address] Jun, Allergic rhinitis J30.9 [facility] [address] [id number] [address] [place] [address] Jun, Allergic rhinitis J30.9 [facility] [address] [id number] [address] [place] [address] Jun, Bipolar 1 disorder, mixed F3 1.60 [facility] [address] [facility] [id number] [address] [place] [address] May, Bipolar 1 disorder, mixed F3 1.60 [facility] [address] [id number] [address] [place] [address] May, Bipolar 1 disorder, mixed F3 1.60 [facility] [address] [id number] [address] [place] [address] May, [facility] [address] [facility] [id number] [address] [place] [address] May, Bipolar 1 disorder, mixed F3 1.60 [facility] [address] [facility] [id number] [address] [place] [address] May, Bipolar 1 disorder, mixed F3 1.60 [facility] [address] [id number] [address] [place] [address] May, [facility] [address] [facility] [id number] [address] [place] [address] May, [facility] [address] [facility] [id number] [address] [place] [address] May, [facility] [address] [facility] [id number] [address] [place] [address] May, Abdominal pain, unspecified location R10.9 [facility] [address] [address] May, [facility] [address] [address] Apr, Hematuria R31.9 ; Ataxia R27 .0 and Hearing loss, unspecified laterality H91.90 [facility] [address] [address] Apr, Bipolar 1 disorder, mixed F3 1.60 [facility] [address] [address] Apr, Acute effusion of both middl e ears H65.193 [place] [address] [address] Apr, Hematuria R31.9 and Pyelonep hritis N12 [facility] [address] [address] Apr, [place] [address] [address] Mar, Bipolar 1 disorder, mixed F3 1.60 [place] [address] [address] Mar, [facility] [address] [address] Mar, Bipolar 1 disorder, mixed F3 1.60 [place] [address] [address] Mar, Bipolar 1 disorder, mixed F3 1.60 [place] [address] [address] Mar, Encounter for immunization Z 23 and Gastritis without bleeding, unspecified chronicity, unspecified gastritis type K29.70 [facility] [address] [address] Mar, Bipolar 1 disorder, mixed F3 1.60 and Grief F43.20 [place] [address] [address] [place] [id number] [address] [place], [place] [id number] Mar, Gastritis without bleeding, unspecified chronicity, unspecified gastritis type K29.70 [place] [address] [address] [place] [id number] [place] [address] Mar, Bipolar 1 disorder, mixed F3 1.60 [place] [address] [address] [place] [id number] [place] [address] Mar, Gastritis without bleeding, unspecified chronicity, unspecified gastritis type K29.70 [place] [address] [address] [place] [id number] [place] [address] Mar, [place] [address] [address] [place] [id number] [place] [address] Feb, Bipolar 1 disorder, mixed F3 1.60 [place] [address] [address] [place] [id number] [place] [address] Feb, Bipolar 1 disorder, mixed F3 1.60 and Grief F43.20 [place] [address] [address] [place] [id number] [place] [address] Feb, Gastritis without bleeding, unspecified chronicity, unspecified gastritis type K29.70 [place] [address] [address] [place] [id number] [place] [id number] 14 Feb, 2016 Bipolar 1 disorder, mixed F3 1.60 [facility] [address] [place] [id number] [place] [id number] 09 Feb, 2016 Gastroesophageal reflux dise ase, esophagitis presence not specified K21.9 [facility] [address] [place] [id number] [address] [place], [place] [address] Jan, Bipolar 1 disorder, mixed F3 1.60 [place] [address] [place] [address] [id number] [address] [place] [address] Jan, Bipolar 1 disorder, mixed F3 1.60 and Unsteady gait R26.81 [facility] [address] [id number] [address] [place] [address] Jan, Bipolar 1 disorder, mixed F3 1.60 [facility] [address] [facility] [id number] [address] [place] [address] Jan, Bipolar 1 disorder, mixed F3 1.60 and 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 [facility] [address] [id number] [address] [place] [address] Jan, Bipolar 1 disorder, mixed F3 1.60 [facility] [address] [facility] [id number] [address] [place] [address] Jan, Bipolar 1 disorder, mixed F3 1.60 [place] [id number] [facility] [id number] [address] [place] [address] Jan, Bipolar 1 disorder, mixed F3 1.60 ; Grief F43.20 and 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 [facility] [address] [facility] [id number] [address] [place] [address] Jan, Bipolar 1 disorder, mixed F3 1.60 [facility] [address] [facility] [id number] [address] [place] [address] Dec, [facility] [address] [facility] [id number] [address] [place] [address] Dec, Bipolar 1 disorder, mixed F3 1.60 ; Vitamin D deficiency, unspecified E55.9 ; H/O allergic rhinitis Z87.09 ; Other chronic pain G89.29 and Dorsalgia, unspecified M54.9 [facility] [address] [facility] [id number] [address] [place] [address] Dec, [facility] [address] [facility] [id number] [address] [place] [address] Dec, Bipolar 1 disorder, mixed F3 1.60 [facility] [address] [facility] [id number] [address] [place] [address] Dec, Major depressive disorder, r ecurrent episode, moderate F33.1 [facility] [address] [id number] [address] [place] [address] Dec, Major depressive disorder, r ecurrent episode, moderate F33.1 [facility] [address] [facility] [id number] [address] [place] [address] Nov, [facility] [address] [facility] [id number] [address] [place] [address] Nov, Bipolar 1 disorder, mixed F3 1.60 [place] [address] [facility] [id number] [address] [place] [address] Nov, Major depressive disorder, r ecurrent episode, moderate F33.1 [place] [address] [place] [id number] [address] [place] [address] Nov, Cervicalgia M54.2 ; Arthralg ia of hip, unspecified laterality M25.559 ; Allergic rhinitis J30.9 and Hormone replacement therapy Z79.890 [facility] [address] [id number] [address] [place] [address] Nov, Other seasonal allergic rhin itis J30.2 [place] [address] [place] [id number] [address] [place] [address] October, Major depressive disorder, r ecurrent episode, moderate F33.1 [facility] [address] [facility] [id number] [address] [place] [address] October, Major depressive disorder, r ecurrent episode, moderate F33.1 and Arthralgia of hip, unspecified laterality M25.559 [place] [address] [place] [id number] [address] [place] [address] October, Grief F43.20 ; Hypertension I10 ; Hyperlipidemia, unspecified hyperlipidemia type E78.5 ; Other chronic pain G89.29 and Allergic rhinitis, unspecified allergic rhinitis type J30.9 [facility] [address] [id number] [address] [place] [address] October, Major depressive disorder, r ecurrent episode, moderate F33.1 [facility] [address] [facility] [id number] [address] [place] [address] Sep, Major depressive disorder, r ecurrent episode, moderate F33.1 [facility] [address] [facility] [id number] [address] [place] [address] Sep, [facility] [address] [place] [id number] [address] [place] [address] Sep, Major depressive disorder, r ecurrent episode, moderate F33.1 [place] [address] [facility] [id number] [address] [place] [address] Sep, Grief F43.20 [place] [address] [place] [id number] [address] [place] [address] Aug, Major depressive disorder, r ecurrent episode, moderate F33.1 [place] [address] [facility] [id number] [address] [place] [address] Aug, Bipolar 1 disorder, mixed F3 1.60 [place] [address] [place] [id number] [address] [place] [address] Aug, Allergic rhinitis J30.9 ; Ce rvicalgia M54.2 and Low back pain M54.5 [facility] [address] [place] [id number] [address] [place] [address] Aug, Major depressive disorder, r ecurrent episode, moderate F33.1 [facility] [address] [facility] [id number] [address] [place] [address] Aug, Sinusitis J32.9 and Tobacco 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 [facility] [address] [facility] [id number] [address] [place] [address] Aug, [facility] [address] [facility] [id number] [address] [place] [address] Aug, Depressive disorder, not els ewhere classified F32.9 ; Hormone replacement therapy Z79.[address] scan, head R93.0 [facility] [address] [id number] [address] [place] [address] Aug, Major depressive disorder, r ecurrent episode, moderate F33.1 [facility] [address] [id number] [address] [place] [address] Jul, Major depressive disorder, r ecurrent episode, moderate F33.1 [facility] [address] [id number] [address] [place] [address] Jul, Abdominal pain R10.9 and Hyp ertension I10 [facility] [address] [id number] [address] [place] [address] Jul, [facility] [address] [id number] [address] [place] [address] Jul, Major depressive disorder, r ecurrent episode, moderate F33.1 [facility] [address] [id number] [address] [place] [address] Jul, [facility] [address] [id number] [address] [place] [address] Jul, [facility] [address] [id number] [address] [place] [address] Jun, [facility] [address] [id number] [address] [place] [address] Jun, Depressive disorder, not els ewhere classified F32.9 [facility] [address] [id number] [address] [place] [address] Jun, [facility] [address] [id number] [address] [place] [address] Jun, [facility] [address] [id number] [address] [place] [address] Jun, Arthralgia of hip, unspecifi ed laterality M25.559 ; Bruising, spontaneous R23.3 and Night sweats R61 [facility] [address] [id number] [address] [place] [address] Jun, [facility] [address] [id number] [address] [place] [address] Jun, [facility] [address] [facility] [id number] [address] [place] [address] May, [facility] [address] [id number] [address] [place] [address] May, Myalgia M79.1 and Screening, lipid Z13.220 [facility] [address] [facility] [id number] [address] [place] [address] Apr, Status post cervical spinal fusion Z98.1 ; Fibromyalgia M79.7 and Unsteady gait R26.81 [facility] [address] [facility] [id number] [address] [place] [address] Nov, [facility] [address] [id number] [address] [place] [address] Nov, [facility] [address] [facility] [id number] [address] [place] [address] October, [facility] [address] [facility] [id number] [address] [place] [address] October, [facility] [address] [facility] [id number] [address] [place] [address] October, [facility] [address] [id number] [address] [place] [address] October, [facility] [address] [facility] [id number] [address] [place] [address] October, [facility] [address] [facility] [id number] [address] [place] [address] October, Dysuria 788.1 ; Nausea 787.0 2 and Urinary tract infection 599.0 [facility] [address] [id number] [address] [place] [address], [place] [address] 14 Sep, 2014 [facility] [address] [id number] [address] [place] [address], [place] [address] 13 Sep, 2014 [facility] [address] [id number] [address] [place] [address], [place] [address] 25 Aug, 2014 [facility] [address] [id number] [address] [place] [address], [place] [address] 25 Aug, 2014 [facility] [address] [id number] [address] [place] [address], [place] [address] 24 Aug, 2014 [facility] [address] [id number] [address] [place] [address], [place] [address] 24 Aug, 2014 [facility] [address] [id number] [address] [place] [address], [place] [address] 23 Aug, 2014 [facility] [address] [id number] [address] [place] [address], [place] [address] 19 Aug, 2014 [facility] [address] [id number] [address] [place] [address], [place] [address] 19 Aug, 2014 [facility] [address] [id number] [address] [place] [address], [place] [address] 19 Aug, 2014 [facility] [address] [id number] [address] [place] [address], [place] [address] 19 Aug, 2014 [facility] [address] [id number] [address] [place] [address], [place] [address] 18 Aug, 2014 [facility] [address] [id number] [address] [place] [address], [place] [address] 18 Aug, 2014 [facility] [address] [id number] [address] [place] [address], [place] [address] 13 Aug, 2014 [facility] [address] [id number] [address] [place] [address], [place] [address] 13 Aug, 2014 [facility] [address] [id number] [address] [place] [address], [place] [address] Aug, [facility] [address] [id number] [address] [place] [address], [place] [address] Aug, [facility] [address] [id number] [address] [place] [address], [place] [address] Aug, 2014 [facility] [address] [id number] [address] [place] [address], [place] [address] Aug, [facility] [address] [id number] [address] [place] [address], [place] [address] Aug, 2014 [facility] [address] [id number] [address] [place] [address], [place] [address] Aug, [facility] [address] [id number] [address] [place] [address], [place] [address] Aug, [facility] [address] [id number] [address] [place] [address], [place] [address] Aug, [facility] [address] [id number] [address] [place] [address], [place] [address] Aug, [facility] [address] [id number] [address] [place] [address], [place] [address] Jul, [facility] [address] [id number] [address] [place] [address], [place] [address] Jul, [facility] [address] [id number] [address] [place] [address], [place] [address] Jul, [facility] [address] [id number] [address] [place] [address], [place] [address] Jul, [facility] [address] [id number] [address] [place] [address], [place] [address] Jul, [facility] [address] [id number] [address] [place] [address], [place] [address] Jul, [facility] [address] [id number] [address] [place] [address], [place] [address] Jul, [facility] [address] [id number] [address] [place] [address], [place] [address] Jul, 2014 [facility] [address] [id number] [address] [place] [address], [place] [address] Jul, 2014 [facility] [address] [id number] [address] [place] [address], [place] [address] Jul, 2014 [facility] [address] [id number] [address] [place] [address], [place] [address] Jul, 2014 [facility] [address] [id number] [address] [place] [address], [place] [address] Jul, 2014 [facility] [address] [id number] [address] [place] [address], [place] [address] Jul, 2014 [facility] [address] [id number] [address] [place] [address], [place] [address] Jul, 2014 [facility] [address] [id number] [address] [place] [address], [place] [address] Jun, [facility] [address] [id number] [address] [place] [address], [place] [address] Jun, [facility] [address] [id number] [address] [place] [address], [place] [address] Jun, [facility] [address] [id number] [address] [place] [address], [place] [address] Jun, [facility] [address] [id number] [address] [place] [address], [place] [address] Jun, [facility] [address] [id number] [address] [place] [address], [place] [address] Jun, [facility] [address] [id number] [address] [place] [address], [place] [address] May, [facility] [address] [id number] [address] [place] [address], [place] [address] May, [facility] [address] [id number] [address] [place] [address], [place] [address] May, [facility] [address] [id number] [address] [place] [address], [place] [address] May, [facility] [address] [id number] [address] [place] [address], [place] [address] May, [facility] [address] [id number] [address] [place] [address], [place] [address] May, [facility] [address] [id number] [address] [place] [address], [place] [address] Apr, [facility] [address] [id number] [address] [place] [address], [place] [address] Apr, [facility] [address] [id number] [address] [place] [address], [place] [address] Apr, [facility] [address] [id number] [address] [place] [address], [place] [address] Apr, [facility] [address] [id number] [address] [place] [address], [place] [address] Apr, [facility] [address] [id number] [address] [place] [address], [place] [address] Apr, [facility] [address] [id number] [address] [place] [address] Mar, [facility] [address] [id number] [address] [place] [address], [place] [address] Mar, [facility] [address] [id number] [address] [place] [address] Mar, [facility] [address] [id number] [address] [place] [address], [place] [address] Mar, [facility] [address] [id number] [address] [place] [address] Mar, [facility] [address] [id number] [address] [place] [address], [place] [address] Mar, [facility] [address] [id number] [address] [place] [address], [place] [address] Mar, [facility] [address] [id number] [address] [place] [address], [place] [address] Mar, [facility] [address] [id number] [address] [place] [address], [place] [address] Mar, [facility] [address] [id number] [address] [place] [address], [place] [address] Mar, [facility] [address] [id number] [address] [place] [address], [place] [address] Mar, [facility] [address] [id number] [address] [place] [address], [place] [address] Mar, [facility] [address] [id number] [address] [place] [address], [place] [address] 30 Feb, 2013 [facility] [address] [id number] [address] [place] [address], [place] [address] 29 Feb, 2013 [facility] [address] [id number] [address] [place] [address], [place] [address] 29 Feb, 2013 [facility] [address] [id number] [address] [place] [address], [place] [address] 23 Feb, 2013 [facility] [address] [id number] [address] [place] [address], [place] [address] 23 Feb, 2013 [facility] [address] [id number] [address] [place] [address], [place] [address] 08 Feb, 2013 [facility] [address] [id number] [address] [place] [address], [place] [address] 08 Feb, 2013 [facility] [address] [id number] [address] [place] [address], [place] [address] Jan, [facility] [address] [id number] [address] [place] [address], [place] [address] Jan, [facility] [address] [id number] [address] [place] [address], [place] [address] 16 Jan, 2014 [facility] [address] [id number] [facility] [place] [address] Dec, [facility] [address] [id number] [facility] [place] [address] Dec, [facility] [address] [id number] [facility] [place] [address] Dec, [facility] [address] [id number] [address] [place] [address], [place] [address] Dec, [facility] [address] [id number] [address] [place] [address], [place] [address] Sep, [facility] [address] [id number] [address] [place] [address], [place] [address] Sep, [facility] [address] [id number] [address] [place] [address], [place] [address] Sep, [facility] [address] [id number] [address] [place] [address], [place] [address] Sep, [facility] [address] [id number] [address] [place] [address], [place] [address] Sep, [facility] [address] [id number] [address] [place] [address], [place] [address] Sep, [facility] [address] [id number] [address] [place] [address], [place] [address] Sep, [facility] [address] [id number] [address] [place] [address], [place] [address] Sep, [facility] [address] [id number] [address] [place] [address], [place] [address] Aug, [facility] [address] [id number] [address] [place] [address], [place] [address] Aug, [facility] [address] [id number] [address] [place] [address], [place] [address] May, [facility] [address] [id number] [address] [place] [address], [place] [address] May, [facility] [address] [id number] [address] [place] [address], [place] [address] Apr, [facility] [address] [id number] [address] [place] [address], [place] [address] Apr, [facility] [address] [id number] [address] [place] [address], [place] [address] Apr, [facility] [address] [id number] [address] [place] [address], [place] [address] Apr, [facility] [address] [id number] [address] [place] [address], [place] [address] Apr, [facility] [address] [id number] [address] [place] [address], [place] [address] Apr, [facility] [address] [id number] [address] [place] [address], [place] [address] May, [facility] [address] [id number] [address] [place] [address], [place] [address] 18 May, 2012 [facility] [address] [id number] [address] [place] [address], [place] [address] 15 May, 2012 [facility] [address] [id number] [address] [place] [address], [place] [address] 15 May, 2012 [facility] [address] [id number] [address] [place] [address], [place] [address] 13 May, 2012 [facility] [address] [id number] [address] [place] [address], [place] [address] 13 May, 2012 [facility] [address] [id number] [address] [place] [address], [place] [address] Apr, [facility] [address] [id number] [address] [place] [address], [place] [address] 13 Apr, 2012 [facility] [address] [id number] [address] [place] [address], [place] [address] 08 Apr, 2012 [facility] [address] [id number] [address] [place] [address], [place] [address] 08 Apr, 2012 [facility] [address] [id number] [address] [place] [address], [place] [address] Apr, [facility] [address] [id number] [address] [place] [address], [place] [address] Apr, [facility] [address] [id number] [address] [place] [address], [place] [address] Apr, [facility] [address] [id number] [address] [place] [address], [place] [address] Apr, [facility] [address] [id number] [address] [place] [address], [place] [address] Apr, [facility] [address] [id number] [address] [place] [address], [place] [address] Apr, [facility] [address] [id number] [address] [place] [address], [place] [address] Mar, [facility] [address] [id number] [address] [place] [address], [place] [address] Mar, [facility] [address] [id number] [address] [place] [address], [place] [address] Mar, [facility] [address] [id number] [address] [place] [address], [place] [address] Mar, [facility] [address] [id number] [address] [place] [address], [place] [address] Mar, [facility] [address] [id number] [address] [place] [address] Mar, [facility] [address] [id number] [address] [place] [address], [place] [address] Mar, [facility] [address] [id number] [address] [place] [address], [place] [address] Mar, [facility] [address] [id number] [address] [place] [address], [place] [address] Mar, [facility] [address] [id number] [address] [place] [address], [place] [address] 25 Feb, 2012 [facility] [address] [id number] [address] [place] [address], [place] [address] 16 Feb, 2012 [facility] [address] [id number] [address] [place] [address], [place] [address] Feb, [facility] [address] [id number] [address] [place] [address], [place] [address] Jan, [facility] [address] [id number] [address] [place] [address], [place] [address] Jan, [facility] [address] [id number] [address] [place] [address], [place] [address] Jan, [facility] [address] [id number] [address] [place] [address], [place] [address] Jan, [facility] [address] [id number] [address] [place] [address], [place] [address] Jan, [facility] [address] [id number] [address] [place] [address], [place] [address] Jan, [facility] [address] [id number] [address] [place] [address], [place] [address] Jan, [facility] [address] [id number] [address] [place] [address], [place] [address] Jan, [facility] [address] [id number] [address] [place] [address], [place] [address] Jan, [facility] [address] [id number] [address] [place] [address], [place] [address] Jan, [facility] [address] [id number] [address] [place] [address], [place] [address] Dec, [facility] [address] [id number] [address] [place] [address], [place] [address] 24 Dec, 2011 [facility] [address] [id number] [address] [place] [address], [place] [address] Dec, [facility] [address] [id number] [address] [place] [address], [place] [address] Dec, [facility] [address] [id number] [address] [place] [address], [place] [address] Nov, [facility] [address] [id number] [address] [place] [address], [place] [address] Nov, [facility] [address] [id number] [address] [place] [address], [place] [address] Nov, [facility] [address] [id number] [address] [place] [address], [place] [address] October, [facility] [address] [id number] [address] [place] [address], [place] [address] October, [facility] [address] [id number] [address] [place] [address], [place] [address] October, [facility] [address] [id number] [address] [place] [address], [place] [address] October, [facility] [address] [id number] [address] [place] [address], [place] [address] October, [facility] [address] [id number] [address] [place] [address], [place] [address] October, [facility] [address] [id number] [address] [place] [address], [place] [address] Aug, [facility] [address] [id number] [address] [place] [address], [place] [address] Mar, [facility] [address] [id number] [address] [place] [address], [place] [address] Nov, [facility] [address] [id number] [address] [place] [address], [place] [address] May, [facility] [address] [id number] [address] [place] [address], [place] [address] May, [facility] [address] [id number] [address] [address] Apr, [facility] [address] [facility] [id number] [address] [place] [address] Mar, [facility] [address] [facility] [id number] [address] [place] [address] Mar, IMMUNIZATIONS No Known Immunizations SOCIAL HISTORY Never Assessed REASON FOR VISIT BH f/u PLAN OF CARE Activity Details Follow Up 1 Week Reason: F/U VITAL SIGNS MEDICATIONS Unknown Medications RESULTS No Results PROCEDURES Procedure Date Ordered Result Body Site [facility] VISIT MENTAL HEALTH ESTAB PT Mar 07, 2017 Psychotherapy, patient &/family, 45 minutes, established pat ient Mar 07, 2017 INSTRUCTIONS MEDICATIONS ADMINISTERED No Known Medications [...]
--- OUTSIDE RECORDS SUMMARY | 2019-06-19 05:46 | XMS REPORT ---
Author Author Sydnie HANCOCK [facility] Address [address] [place] [address] Care Team Providers Care It Lead Name Role Phone NAHOMY HANCOCK Unavailable PROBLEMS Type Condition ICD9-CM Code CCV58-IF Code Onset Dates Condition S tatus SNOMED Code Problem Hormone replacement therapy Z79.890 Ac tive 693665407 Problem Abnormal CT scan, head R93.0 Active 889511601 Problem Hot flashes due to menopause N95.1 A ctive 452110504 Problem Sensorineural hearing loss (SNHL) of both ears H90 .3 Active 941381382 Problem History of colon polyps Z86.010 Active 919072906 Problem Bruising, spontaneous R23.3 Active 605747853 Problem Generalized anxiety disorder F41.1 A ctive 12158697 Problem Hammer toe of right foot M20.41 Activ e 498081372 Problem Hematuria, unspecified type R31.9 Ac tive 81815911 Problem Plantar wart of right foot B07.0 Act mitchell [id number] Problem Acute left-sided low back pain with left-sided sciatica M54.42 Active 168371315 Problem Hypertension I10 Active 3348764 3 Problem Arthralgia of hip, unspecified laterality M25.559 Active 30268332 Problem Night sweats R61 Active 3138936 0 Problem Major depressive disorder, recurrent episode, moderate F33.1 Active 616952926 Problem Imbalance R26.89 Active 960004388 Problem Bladder spasm N32.89 Active 340690 006 Problem Fibromyalgia M79.7 Active 1282611 7 Problem Other chronic pain G89.29 Active 8 5553530 Problem Gastritis without bleeding, unspecified chronicity, unspecified gastritis type K29.70 Active 557311272 Problem Hyperlipidemia, unspecified hyperlipidemia type E7 8.5 Active 60436932 Problem Grief F43.20 Active 65052583 Problem Ataxia R27.0 Active 07049251 Problem Allergic rhinitis J30.9 Active 61 786490 Problem Bipolar 1 disorder, mixed F31.60 Acti ve 57452227 Problem Hearing loss, unspecified laterality H91.90 Active 01515811 ALLERGIES No Information ENCOUNTERS Encounter Location Date Diagnosis [facility] [address] [address] Sep, [facility] [address] [address] Sep, [facility] [address] [address] Aug, [facility] [address] [address] Aug, [facility] [address] [address] Aug, [facility] [address] [address] Aug, Generalized anxiety disorder F41.1 [facility] [address] [address] Aug, Bipolar 1 disorder, mixed F3 1.60 [facility] [address] [address] Aug, Plantar wart of right foot B 07.0 [facility] [address] [address] Aug, Bipolar 1 disorder, mixed F3 1.60 [facility] [address] [place] [id number] [place] [address] Jul, Bipolar 1 disorder, mixed F3 1.60 [facility] [address] [address] Jul, [facility] [address] [address] Jul, Bipolar 1 disorder, mixed F3 1.60 [facility] [address] [place] [id number] [place] [address] 09 Jul, 2017 Generalized anxiety disorder F41.1 [facility] [address] [address] Jul, Bipolar 1 disorder, mixed F3 1.60 [place] [address] [place] [address] Jul, Acute left-sided low back pa in with left-sided sciatica M54.42 [facility] [address] [place] [id number] [place] [address] Jul, Coccydynia M53.3 [place] [address] [place] [id number] [place] [address] Jun, Bipolar 1 disorder, mixed F3 1.60 [facility] [address] [place] [id number] [place] [address] Jun, Acute nasopharyngitis J00 [place] [address] [place] [address] Jun, Bipolar 1 disorder, mixed F3 1.60 [place] [address] [address] Jun, Fibromyalgia M79.7 [place] [address] [address] Jun, Bipolar 1 disorder, mixed F3 1.60 [place] [address] [place] [id number] [place] [address] Jun, Fibromyalgia M79.7 and Bipol ar 1 disorder, mixed F31.60 [place] [address] [place] [id number] [place] [address] May, Bipolar 1 disorder, mixed F3 1.60 ; Generalized anxiety disorder F41.1 and 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 [place] [address] [place] [id number] [place] [address] May, Bipolar 1 disorder, mixed F3 1.60 [facility] [address] [address] 14 May, 2017 Cough R05 and Body aches R52 [facility] [address] [place] [id number] [place] [address] 10 May, 2017 Bladder spasm N32.89 and Acu te cystitis without hematuria N30.00 [facility] [address] [address] 07 May, 2017 Bipolar 1 disorder, mixed F3 1.60 [place] [address] [place] [address] 30 Apr, 2017 [place] [address] [address] Apr, Major depressive disorder, r ecurrent episode, moderate F33.1 and Encounter for immunization Z23 [facility] [address] [address] Apr, Bipolar 1 disorder, mixed F3 1.60 [place] [address] [address] 22 Apr, 2017 Bipolar 1 disorder, mixed F3 1.60 [place] [address] [address] 16 Apr, 2017 Bipolar 1 disorder, mixed F3 1.60 [facility] [address] [address] 13 Apr, 2017 Yeast vaginitis B37.3 [place] [address] [address] 09 Apr, 2017 Bipolar 1 disorder, mixed F3 1.60 [facility] [address] [address] 07 Apr, 2017 [address]ulitis L03.[address] for immunization Z23 [place] [address] [address] Apr, Bipolar 1 disorder, mixed F3 1.60 [place] [address] [place] [address] Mar, Bipolar 1 disorder, mixed F3 1.60 [place] [address] [address] Mar, Bipolar 1 disorder, mixed F3 1.60 [place] [address] [address] Mar, Imbalance R26.89 [address] Encount er for immunization Z23 [place] [address] [place] [address] Mar, Generalized anxiety disorder F41.1 [place] [address] [address] Mar, Bipolar 1 disorder, mixed F3 1.60 [place] [address] [address] Mar, Generalized anxiety disorder F41.1 [place] [address] [place] [address] Mar, Bipolar 1 disorder, mixed F3 1.60 [place] [address] [address] Mar, Bipolar 1 disorder, mixed F3 1.60 [place] [address] [address] Feb, Bipolar 1 disorder, mixed F3 1.60 [place] [address] [address] Feb, Bipolar 1 disorder, mixed F3 1.60 and Generalized anxiety disorder F41.1 [place] [address] [address] Feb, Gastritis without bleeding, unspecified chronicity, unspecified gastritis type K29.70 ; Hammer toe of right foot M20.41 and Other viral warts B07.8 [facility] [address] [facility] [id number] [address] [place] [address] 20 Feb, 2017 Bipolar 1 disorder, mixed F3 1.60 [facility] [address] [facility] [id number] [address] [place] [address] 13 Feb, 2017 Bipolar 1 disorder, mixed F3 1.60 [facility] [address] [facility] [id number] [address] [place] [address] 05 Feb, 2017 Bipolar 1 disorder, mixed F3 1.60 [place] [address] [facility] [id number] [address] [place] [address] 31 Jan, 2017 Encounter for screening mamm ogram for breast cancer Z12.31 ; Other viral warts B07.8 and Allergic rhinitis J30.9 [place] [address] [facility] [id number] [address] [place] [address] Jan, Bipolar 1 disorder, mixed F3 1.60 [place] [address] [facility] [id number] [address] [place] [address] Jan, Bipolar 1 disorder, mixed F3 1.60 [place] [address] [facility] [id number] [address] [place] [address] Jan, [place] [address] [facility] [id number] [address] [place] [address] Jan, Bipolar 1 disorder, mixed F3 1.60 [place] [address] [facility] [id number] [address] [place] [address] Jan, Bipolar 1 disorder, mixed F3 1.60 [place] [address] [facility] [id number] [address] [place] [address] Jan, Allergic rhinitis J30.9 ; He maturia R31.9 and Colon cancer screening Z12.11 [facility] [address] [facility] [id number] [address] [place] [address] Dec, Bipolar 1 disorder, mixed F3 1.60 [place] [address] 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 [id number] [address] [place] [address] Dec, Bipolar 1 disorder, mixed F3 1.60 [facility] [address] [place] [id number] [place] [address] Dec, Bipolar 1 disorder, mixed F3 1.60 [place] [address] [place] [id number] [place] [address] Dec, Bipolar 1 disorder, mixed F3 1.60 [place] [address] [place] [id number] [place] [address] Dec, Low back pain M54.5 and Recu rrent urinary tract infection N39.0 [place] [address] [place] [id number] [place] [address] Nov, Bipolar 1 disorder, mixed F3 1.60 [place] [address] [place] [id number] [place] [address] Nov, Bipolar 1 disorder, mixed F3 1.60 [place] [address] [place] [id number] [place] [address] Nov, Bipolar 1 disorder, mixed F3 1.60 [place] [address] [facility] [id number] [address] [place] [address] Nov, Bipolar 1 disorder, mixed F3 1.60 [place] [address] [place] [id number] [place] [address] Nov, [place] [address] [place] [id number] [place] [address] Nov, Anesthesia of skin R20.0 ; F requent UTI N39.0 ; Tobacco abuse Z72.0 and Colon cancer screening Z12.11 [place] [address] [place] [id number] [place] [address] Nov, Bipolar 1 disorder, mixed F3 1.60 [facility] [address] [address] October, Bipolar 1 disorder, mixed F3 1.60 [facility] [address] [place] [id number] [place] [address] October, Bipolar 1 disorder, mixed F3 1.60 [facility] [address] [address] October, Bipolar 1 disorder, mixed F3 1.60 [facility] [address] [address] October, Bipolar 1 disorder, mixed F3 1.60 [place] [address] [address] October, Bipolar 1 disorder, mixed F3 1.60 [facility] [address] [place] [id number] [place] [address] October, Cervicalgia M54.2 and Bipola r 1 disorder, mixed F31.60 [facility] [address] [place] [id number] [place] [address] October, Hypertension I10 ; Hyperlipi demia, unspecified hyperlipidemia type E78.5 and Family history of thyroid disease Z83.49 [facility] [address] [place] [address] October, [facility] [address] [place] [id number] [place] [address] October, Hypertension I10 ; Hyperlipi demia, unspecified hyperlipidemia type E78.5 and Family history of thyroid problem Z83.49 [facility] [address] [place] [id number] [place] [address] October, Bipolar 1 disorder, mixed F3 1.60 [facility] [address] [place] [id number] [place] [address] Sep, Bipolar 1 disorder, mixed F3 1.60 [facility] [address] [facility] [id number] [address] [place] [address] Sep, Bipolar 1 disorder, mixed F3 1.60 [facility] [address] [facility] [id number] [address] [place] [address] Sep, Bipolar 1 disorder, mixed F3 1.60 [facility] [address] [place] [id number] [place], [place] [address] Sep, History of colon polyps Z86. 010 and Hematochezia K92.1 [place] [address] [place] [id number] [place] [id number] Sep, Major depressive disorder, r ecurrent episode, moderate F33.1 [place] [address] [place] [id number] [place] [address] Sep, Bipolar 1 disorder, mixed F3 1.60 [facility] [address] [place] [id number] [place] [address] Aug, Hot flashes due to menopause N95.1 [facility] [address] [place] [id number] [place], [place] [address] Aug, Bipolar 1 disorder, mixed F3 1.60 [place] [address] [place] [id number] [place] [address] Aug, [facility] [address] [place] [id number] [place], [place] [address] Aug, Bipolar 1 disorder, mixed F3 1.60 [facility] [address] [place] [id number] [place] [address] Aug, Bipolar 1 disorder, mixed F3 1.60 [facility] [address] [place] [id number] [place], [place] [address] Aug, Hot flashes due to menopause N95.1 ; Cervicalgia M54.2 and Ataxia R27.0 [place] [address] [address] Jul, Bipolar 1 disorder, mixed F3 1.60 [place] [address] Jul, Bipolar 1 disorder, mixed F3 1.60 [place] [address] [address] Jul, Bipolar 1 disorder, mixed F3 1.60 [place] [address] [place] [address] Jul, Bipolar 1 disorder, mixed F3 1.60 [place] [address] 10 Jul, 2016 Bipolar 1 disorder, mixed F3 1.60 [place] [address] [address] Jul, Cervicalgia M54.2 ; Tremor R 25.1 ; Hearing abnormally acute, unspecified laterality H93.239 ; Alopecia L65.9 ; Encounter for immunization Z23 and Family history of thyroid disease Z83.49 [place] [address] [place] [address] Jul, Bipolar 1 disorder, mixed F3 1.60 [place] [address] [address] Jun, [place] [address] [place] [address] Jun, Hearing disorder, unspecifie d laterality H93.299 [place] [address] [address] Jun, Bipolar 1 disorder, mixed F3 1.60 [place] [address] [place] [id number] Jun, Bipolar 1 disorder, mixed F3 1.60 [place] [address] Jun, Allergic rhinitis J30.9 [facility] [address] [id number] [address] [place] [address] Jun, Bipolar 1 disorder, mixed F3 1.60 [facility] [address] [id number] [address] [place] [address] Jun, Bipolar 1 disorder, mixed F3 1.60 [facility] [address] [id number] [address] [place] [address] Jun, Allergic rhinitis J30.9 [facility] [address] [id number] [address] [place] [address] Jun, Allergic rhinitis J30.9 [facility] [address] [id number] [address] [place] [address] Jun, Bipolar 1 disorder, mixed F3 1.60 [facility] [address] [id number] [address] [place] [address] May, Bipolar 1 disorder, mixed F3 1.60 [facility] [address] [id number] [address] [place] [address] May, Bipolar 1 disorder, mixed F3 1.60 [facility] [address] [id number] [address] [place] [address] May, [facility] [address] [id number] [address] [place] [address] May, Bipolar 1 disorder, mixed F3 1.60 [facility] [address] [id number] [address] [place] [address] May, Bipolar 1 disorder, mixed F3 1.60 [facility] [address] [id number] [address] [place] [address] May, [facility] [address] [id number] [address] [place] [phone] May, [facility] [address] [id number] [address] [place] [address] May, [facility] [address] [place] [address] May, Abdominal pain, unspecified location R10.9 [facility] [address] [facility] [id number] [address] [place] [address] May, [facility] [address] [place] [id number] [place] [address] Apr, Hematuria R31.9 ; Ataxia R27 .0 and Hearing loss, unspecified laterality H91.90 [facility] [address] [place] [id number] [place] [address] Apr, Bipolar 1 disorder, mixed F3 1.60 [facility] [address] [place] [id number] [place] [address] Apr, Acute effusion of both middl e ears H65.193 [facility] [address] [address] Apr, Hematuria R31.9 and Pyelonep hritis N12 [facility] [address] [place] [address] Apr, [facility] [address] [address] Mar, Bipolar 1 disorder, mixed F3 1.60 [facility] [address] [place] [id number] [address] [place] [address] Mar, [facility] [address] [place] [id number] [place] [address] Mar, Bipolar 1 disorder, mixed F3 1.60 [place] [address] [address] Mar, Bipolar 1 disorder, mixed F3 1.60 [facility] [address] [place] [id number] [place] [address] Mar, Encounter for immunization Z 23 and Gastritis without bleeding, unspecified chronicity, unspecified gastritis type K29.70 [facility] [address] [place] [id number] [place], [place] [address] Mar, Bipolar 1 disorder, mixed F3 1.60 and Grief F43.20 [facility] [address] [place] [id number] [place], [place] [address] Mar, Gastritis without bleeding, unspecified chronicity, unspecified gastritis type K29.70 [place] [address] [place], [place] [address] Mar, Bipolar 1 disorder, mixed F3 1.60 [place] [address] Mar, Gastritis without bleeding, unspecified chronicity, unspecified gastritis type K29.70 [place] [address] [place] [address] Mar, [place] [address] [place] [address] Feb, Bipolar 1 disorder, mixed F3 1.60 [place] [address] [place] [address] Feb, Bipolar 1 disorder, mixed F3 1.60 and Grief F43.20 [place] [address] [place] [address] Feb, Gastritis without bleeding, unspecified chronicity, unspecified gastritis type K29.70 [facility] [address] [place] [id number] [place] [address] 14 Feb, 2016 Bipolar 1 disorder, mixed F3 1.60 [facility] [address] [place] [id number] [place], [place] [address] 09 Feb, 2016 Gastroesophageal reflux dise ase, esophagitis presence not specified K21.9 [facility] [address] [place] [id number] [place], [place] [address] Jan, Bipolar 1 disorder, mixed F3 1.60 [place] [address] [place] [id number] [place] [address] Jan, Bipolar 1 disorder, mixed F3 1.60 and Unsteady gait R26.81 [place] [address] [facility] [id number] [address] [place] [address] Jan, Bipolar 1 disorder, mixed F3 1.60 [place] [address] [place] [id number] [place] [address] Jan, Bipolar 1 disorder, mixed F3 1.60 and 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 [place] [address] [facility] [id number] [address] [place] [address] Jan, Bipolar 1 disorder, mixed F3 1.60 [place] [address] [place] [id number] [place] [address] Jan, Bipolar 1 disorder, mixed F3 1.60 [place] [address] [place] [id number] [place] [address] Jan, Bipolar 1 disorder, mixed F3 1.60 ; Grief F43.20 and 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 [place] [address] [place] [id number] [place] [address] Jan, Bipolar 1 disorder, mixed F3 1.60 [place] [address] [place] [id number] [address] [place] [id number] Dec, [place] [address] [place] [id number] [address] [place] [phone] Dec, Bipolar 1 disorder, mixed F3 1.60 ; Vitamin D deficiency, unspecified E55.9 ; H/O allergic rhinitis Z87.09 ; Other chronic pain G89.29 and Dorsalgia, unspecified M54.9 [place] [id number] [facility] [id number] [address] [place] [id number] Dec, [place] [address] [address] [place] [id number] [address] [place] [id number] Dec, Bipolar 1 disorder, mixed F3 1.60 [facility] [address] [facility] [id number] [address] [place] [id number] Dec, Major depressive disorder, r ecurrent episode, moderate F33.1 [facility] [address] [facility] [id number] [address] [place] [id number] Dec, Major depressive disorder, r ecurrent episode, moderate F33.1 [facility] [address] [facility] [id number] [address] [place] [id number] Nov, [facility] [address] [facility] [id number] [address] [place] [id number] Nov, Bipolar 1 disorder, mixed F3 1.60 [place] [address] [facility] [id number] [address] [place] [phone] Nov, Major depressive disorder, r ecurrent episode, moderate F33.1 [facility] [id number] [place] [id number] Nov, Cervicalgia M54.2 ; Arthralg ia of hip, unspecified laterality M25.559 ; Allergic rhinitis J30.9 and Hormone replacement therapy Z79.890 [facility] [address] [facility] [id number] [address] [place] [id number] Nov, Other seasonal allergic rhin itis J30.2 [facility] [address] [place] [id number] [address] [place] [id number] October, Major depressive disorder, r ecurrent episode, moderate F33.1 [facility] [address] [facility] [id number] [address] [place] [id number] October, Major depressive disorder, r ecurrent episode, moderate F33.1 and Arthralgia of hip, unspecified laterality M25.559 [facility] [address] [facility] [id number] [address] [place] [id number] October, Grief F43.20 ; Hypertension I10 ; Hyperlipidemia, unspecified hyperlipidemia type E78.5 ; Other chronic pain G89.29 and Allergic rhinitis, unspecified allergic rhinitis type J30.9 [facility] [address] [facility] [id number] [address] [place] [id number] October, Major depressive disorder, r ecurrent episode, moderate F33.1 [place] [address] [facility] [id number] [address] [place] [id number] Sep, Major depressive disorder, r ecurrent episode, moderate F33.1 [place] [address] [facility] [id number] [address] [place] [id number] Sep, [place] [address] [facility] [id number] [address] [place] [id number] Sep, Major depressive disorder, r ecurrent episode, moderate F33.1 [place] [address] [place] [id number] [address] [place] [id number] Sep, Grief F43.20 [place] [address] [place] [id number] [address] [place] [id number] Aug, Major depressive disorder, r ecurrent episode, moderate F33.1 [place] [id number] [place] [id number] Aug, Bipolar 1 disorder, mixed F3 1.60 [place] [address] [place] [id number] [address] [place] [id number] Aug, Allergic rhinitis J30.9 ; Ce rvicalgia M54.2 and Low back pain M54.5 [facility] [address] [facility] [id number] [address] [place] [id number] Aug, Major depressive disorder, r ecurrent episode, moderate F33.1 [facility] [address] [place] [id number] [address] [place] [phone] Aug, Sinusitis J32.9 and Tobacco 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 [facility] [address] [place] [id number] [address] [place] [id number] Aug, [place] [id number] [place] [id number] Aug, Depressive disorder, not els ewhere classified F32.9 ; Hormone replacement therapy Z79.[address] scan, head R93.0 [facility] [address] [facility] [id number] [address] [place] [id number] Aug, Major depressive disorder, r ecurrent episode, moderate F33.1 [facility] [address] [facility] [id number] [address] [place] [id number] Jul, Major depressive disorder, r ecurrent episode, moderate F33.1 [facility] [address] [facility] [id number] [address] [place] [id number] Jul, Abdominal pain R10.9 and Hyp ertension I10 [facility] [address] [place] [id number] [address] [place] [id number] Jul, [facility] [address] [place] [id number] [address] [place] [id number] Jul, Major depressive disorder, r ecurrent episode, moderate F33.1 [facility] [address] [place] [id number] [address] [place] [id number] Jul, [facility] [address] [place] [id number] [address] [place] [id number] Jul, [facility] [address] [place] [id number] [address] [place] [id number] Jun, [facility] [address] [place] [id number] [address] [place] [id number] Jun, Depressive disorder, not els ewhere classified F32.9 [facility] [address] [place] [id number] [address] [place] [id number] Jun, [facility] [address] [facility] [id number] [address] [place] [id number] Jun, [facility] [address] [place] [id number] [address] [place] [id number] Jun, Arthralgia of hip, unspecifi ed laterality M25.559 ; Bruising, spontaneous R23.3 and Night sweats R61 [facility] [address] [facility] [id number] [address] [place] [id number] Jun, [facility] [address] [place] [id number] [address] [place] [id number] Jun, [facility] [address] [place] [id number] [address] [place] [id number] May, [facility] [address] [place] [id number] [address] [place] [id number] May, Myalgia M79.1 and Screening, lipid Z13.220 [facility] [address] [place] [id number] [address] [place] [id number] Apr, Status post cervical spinal fusion Z98.1 ; Fibromyalgia M79.7 and Unsteady gait R26.81 [facility] [address] [place] [id number] [address] [place] [id number] Nov, [facility] [address] [place] [id number] [address] [place] [id number] Nov, [facility] [address] [place] [id number] [address] [place] [id number] October, [facility] [address] [place] [id number] [address] [place] [id number] October, [facility] [address] [place] [id number] [address] [place] [id number] October, [facility] [address] [place] [id number] [address] [place] [id number] October, [facility] [address] [place] [id number] [address] [place] [id number] October, [facility] [address] [place] [id number] [address] [place] [id number] October, Dysuria 788.1 ; Nausea 787.0 2 and Urinary tract infection 599.0 [facility] [address] [id number] [address] [place] [address], [place] [address] 14 Sep, 2014 [facility] [address] [id number] [address] [place] [id number] 13 Sep, 2014 [facility] [address] [id number] [address] [place] [address], [place] [address] 25 Aug, 2014 [facility] [address] [id number] [address] [place] [id number] 25 Aug, 2014 [facility] [address] [id number] [address] [place] [address], [place] [address] 24 Aug, 2014 [facility] [address] [id number] [address] [place] [address], [place] [address] 24 Aug, 2014 [facility] [address] [id number] [address] [place] [id number] 23 Aug, 2014 [facility] [address] [id number] [address] [place] [address], [place] [address] 19 Aug, 2014 [facility] [address] [id number] [address] [place] [id number] 19 Aug, 2014 [facility] [address] [id number] [address] [place] [address], [place] [address] 19 Aug, 2014 [facility] [address] [id number] [address] [place] [id number] 19 Aug, 2014 [facility] [address] [id number] [address] [place] [id number] 18 Aug, 2014 [facility] [address] [id number] [address] [place] [id number] 18 Aug, 2014 [facility] [address] [id number] [address] [place] [id number] 13 Aug, 2014 [facility] [address] [id number] [address] [place] [id number] 13 Aug, 2014 [facility] [address] [id number] [address] [place] [address], [place] [address] Aug, [facility] [address] [id number] [address] [place] [address], [place] [address] Aug, [facility] [address] [id number] [address] [place] [address], [place] [address] Aug, 2014 [facility] [address] [id number] [address] [place] [address], [place] [address] Aug, 2014 [facility] [address] [id number] [address] [place] [address], [place] [address] Aug, [facility] [address] [id number] [address] [place] [address], [place] [address] Aug, [facility] [address] [id number] [address] [place] [address], [place] [address] Aug, [facility] [address] [id number] [address] [place] [address], [place] [address] Aug, [facility] [address] [id number] [address] [place] [address], [place] [address] Aug, [facility] [address] [id number] [address] [place] [address], [place] [address] Jul, [facility] [address] [id number] [address] [place] [address], [place] [address] Jul, [facility] [address] [id number] [address] [place] [address], [place] [address] Jul, [facility] [address] [id number] [address] [place] [address], [place] [address] Jul, [facility] [address] [id number] [address] [place] [address], [place] [address] Jul, [facility] [address] [id number] [address] [place] [id number] Jul, [facility] [address] [id number] [address] [place] [id number] Jul, 2014 [facility] [address] [id number] [address] [place] [address], [place] [address] Jul, 2014 [facility] [address] [id number] [address] [place] [address], [place] [address] Jul, 2014 [facility] [address] [id number] [address] [place] [address], [place] [address] Jul, 2014 [facility] [address] [id number] [address] [place] [address], [place] [address] Jul, 2014 [facility] [address] [id number] [address] [place] [address], [place] [address] Jul, 2014 [facility] [address] [id number] [address] [place] [address], [place] [address] Jul, 2014 [facility] [address] [id number] [address] [place] [address], [place] [address] Jul, [facility] [address] [id number] [address] [place] [id number] Jun, [facility] [address] [id number] [address] [place] [address], [place] [address] Jun, [facility] [address] [id number] [address] [place] [id number] Jun, [facility] [address] [id number] [address] [place] [address], [place] [address] Jun, [facility] [address] [id number] [address] [place] [id number] Jun, [facility] [address] [id number] [address] [place] [address], [place] [address] Jun, [facility] [address] [id number] [address] [place] [address], [place] [address] May, [facility] [address] [id number] [address] [place] [address], [place] [address] May, [facility] [address] [id number] [address] [place] [address], [place] [address] May, [facility] [address] [id number] [address] [place] [address], [place] [address] May, [facility] [address] [id number] [address] [place] [address], [place] [address] May, [facility] [address] [id number] [address] [place] [address], [place] [address] May, [facility] [address] [id number] [address] [place] [address], [place] [address] Apr, [facility] [address] [id number] [address] [place] [address], [place] [address] Apr, [facility] [address] [id number] [address] [place] [address], [place] [address] Apr, [facility] [address] [id number] [address] [place] [address], [place] [address] Apr, [facility] [address] [id number] [address] [place] [address], [place] [address] Apr, [facility] [address] [id number] [address] [place] [address], [place] [address] Apr, [facility] [address] [id number] [address] [place] [address], [place] [address] Mar, [facility] [address] [id number] [address] [place] [address], [place] [address] Mar, [facility] [address] [id number] [address] [place] [address], [place] [address] Mar, [facility] [address] [id number] [address] [place] [address], [place] [address] Mar, [facility] [address] [id number] [address] [place] [address], [place] [address] Mar, [facility] [address] [id number] [address] [place] [id number] Mar, [facility] [address] [id number] [address] [place] [address], [place] [address] Mar, [facility] [address] [id number] [address] [place] [address], [place] [address] Mar, [facility] [address] [id number] [address] [place] [address], [place] [address] Mar, [facility] [address] [id number] [address] [place] [address], [place] [address] Mar, [facility] [address] [id number] [address] [place] [address], [place] [address] Mar, [facility] [address] [id number] [address] [place] [address], [place] [address] Mar, [facility] [address] [id number] [address] [place] [address], [place] [address] 30 Feb, 2014 [facility] [address] [id number] [address] [place] [address], [place] [address] 29 Feb, 2013 [facility] [address] [id number] [address] [place] [address], [place] [address] 29 Feb, 2014 [facility] [address] [id number] [address] [place] [address], [place] [address] 23 Feb, 2013 [facility] [address] [id number] [address] [place] [address], [place] [address] 23 Feb, 2013 [facility] [address] [id number] [address] [place] [address], [place] [address] 08 Feb, 2013 [facility] [address] [id number] [address] [place] [address], [place] [address] 08 Feb, 2014 [facility] [address] [id number] [address] [place] [address], [place] [address] Jan, [facility] [address] [id number] [address] [place] [address], [place] [address] Jan, [facility] [address] [id number] [facility] [address] Jan, [facility] [address] [id number] [facility] [address] Dec, [facility] [address] [id number] [address] [place] [address], [place] [address] Dec, [facility] [address] [id number] [address] [place] [address], [place] [address] Dec, [facility] [address] [id number] [address] [place] [address], [place] [address] Dec, [facility] [address] [id number] [address] [place] [address], [place] [address] Sep, [facility] [address] [id number] [address] [place] [address], [place] [address] Sep, [facility] [address] [id number] [address] [place] [address], [place] [address] Sep, [facility] [address] [id number] [address] [place] [address], [place] [address] Sep, [facility] [address] [id number] [address] [place] [address], [place] [address] Sep, [facility] [address] [id number] [address] [place] [address], [place] [address] Sep, [facility] [address] [id number] [address] [place] [address], [place] [address] Sep, [facility] [address] [id number] [address] [place] [address], [place] [address] Sep, [facility] [address] [id number] [address] [place] [address], [place] [address] Aug, [facility] [address] [id number] [address] [place] [address], [place] [address] Aug, [facility] [address] [id number] [address] [place] [address], [place] [address] May, [facility] [address] [id number] [address] [place] [address], [place] [address] May, [facility] [address] [id number] [address] [place] [address], [place] [address] Apr, [facility] [address] [id number] [address] [place] [address], [place] [address] Apr, [facility] [address] [id number] [address] [place] [address], [place] [address] Apr, [facility] [address] [id number] [address] [place] [address], [place] [address] Apr, [facility] [address] [id number] [address] [place] [address], [place] [address] Apr, [facility] [address] [id number] [address] [place] [address], [place] [address] Apr, [facility] [address] [id number] [address] [place] [address], [place] [address] May, [facility] [address] [id number] [address] [place] [address], [place] [address] 18 May, 2012 [facility] [address] [id number] [address] [place] [address], [place] [address] 15 May, 2012 [facility] [address] [id number] [address] [place] [address], [place] [address] 15 May, 2012 [facility] [address] [id number] [address] [place] [address], [place] [address] 13 May, 2012 [facility] [address] [id number] [address] [place] [address], [place] [address] 13 May, 2012 [facility] [address] [id number] [address] [place] [address], [place] [address] 13 Apr, 2012 [facility] [address] [id number] [address] [place] [address], [place] [address] 13 Apr, 2012 [facility] [address] [id number] [address] [place] [id number] 08 Apr, 2012 [facility] [address] [id number] [address] [place] [address], [place] [address] 08 Apr, 2012 [facility] [address] [id number] [address] [place] [id number] Apr, [facility] [address] [id number] [address] [place] [id number] Apr, [facility] [address] [id number] [address] [place] [id number] Apr, [facility] [address] [id number] [address] [place] [address], [place] [address] Apr, [facility] [address] [id number] [address] [place] [address], [place] [address] Apr, [facility] [address] [id number] [address] [place] [id number] Apr, [facility] [address] [id number] [address] [place] [id number] Mar, [facility] [address] [id number] [address] [place] [id number] Mar, [facility] [address] [id number] [address] [place] [id number] Mar, [facility] [address] [id number] [address] [place] [id number] Mar, [facility] [address] [id number] [address] [place] [id number] Mar, [facility] [address] [id number] [address] [place] [id number] Mar, [facility] [address] [id number] [address] [place] [id number] Mar, [facility] [address] [id number] [address] [place] [id number] Mar, [facility] [address] [id number] [address] [place] [address], [place] [address] 23 Mar, 2012 [facility] [address] [id number] [address] [place] [address], [place] [address] 25 Feb, 2012 [facility] [address] [id number] [address] [place] [address], [place] [address] 16 Feb, 2012 [facility] [address] [id number] [address] [place] [address], [place] [address] 11 Feb, 2012 [facility] [address] [id number] [address] [place] [address], [place] [address] 25 Jan, 2012 [facility] [address] [id number] [address] [place] [address], [place] [address] Jan, [facility] [address] [id number] [address] [place] [address], [place] [address] Jan, [facility] [address] [id number] [address] [place] [address], [place] [address] 18 Jan, 2012 [facility] [address] [id number] [address] [place] [address], [place] [address] Jan, [facility] [address] [id number] [address] [place] [address], [place] [address] 17 Jan, 2012 [facility] [address] [id number] [address] [place] [address], [place] [address] 16 Jan, 2012 [facility] [address] [id number] [address] [place] [address], [place] [address] 15 Jan, 2012 [facility] [address] [id number] [address] [place] [address], [place] [address] 15 Jan, 2012 [facility] [address] [id number] [address] [place] [address], [place] [address] 09 Jan, 2012 [facility] [address] [id number] [address] [place] [address], [place] [address] 31 Dec, 2011 [facility] [address] [id number] [address] [place] [address], [place] [address] Dec, [facility] [address] [id number] [address] [place] [address], [place] [address] Dec, [facility] [address] [id number] [address] [place] [address], [place] [address] Dec, [facility] [address] [id number] [address] [place] [address], [place] [address] Nov, [facility] [address] [id number] [address] [place] [address], [place] [address] Nov, [facility] [address] [id number] [address] [place] [address], [place] [address] Nov, [facility] [address] [id number] [address] [place] [address], [place] [address] October, [facility] [address] [id number] [address] [place] [address], [place] [address] October, [facility] [address] [id number] [address] [place] [address], [place] [address] October, [facility] [address] [id number] [address] [place] [address], [place] [address] October, [facility] [address] [id number] [address] [place] [address], [place] [address] October, [facility] [address] [id number] [address] [place] [address], [place] [address] October, [facility] [address] [id number] [address] [place] [address], [place] [address] Aug, [facility] [address] [id number] [address] [place] [address], [place] [address] Mar, [facility] [address] [id number] [address] [place] [address], [place] [address] Nov, [facility] [address] [id number] [address] [place] [address], [place] [address] May, [facility] [address] [id number] [address] [place] [id number] May, [facility] [address] [facility] [id number] [address] [place] [id number] Apr, [facility] [address] [facility] [id number] [address] [place] [id number] Mar, [facility] [address] [facility] [id number] [address] [place] [id number] Mar, IMMUNIZATIONS No Known Immunizations SOCIAL HISTORY Never Assessed REASON FOR VISIT Refill request PLAN OF CARE VITAL SIGNS MEDICATIONS Medication Instructions Dosage Frequency Start Date End Date Duration S tat Nicoderm CQ 21 MG/24HR Transdermal Once a day 1 patch to skin 24h Nov, Dec, 30 day(s) Active RESULTS No Results PROCEDURES No Known procedures INSTRUCTIONS MEDICATIONS ADMINISTERED No Known Medications MEDICAL (GENERAL) HISTORY Type Description Date Medical History Severe spinal stenosis [facility] cervical spine CT and [...]
--- OUTSIDE RECORDS SUMMARY | 2019-06-19 05:46 | XMS REPORT ---
Author Author Sydnie MORTON Organization [facility] Address [address] [place] [address] Care Team Providers [facility] Name Role Phone JOHN MORTON Unavailable PROBLEMS Type Condition ICD9-CM Code WYU85-PT Code Onset Dates Condition S tatus SNOMED Code Problem Hormone replacement therapy Z79.890 Ac tive 348152570 Problem Abnormal CT scan, head R93.0 Active 980667986 Problem Sensorineural hearing loss (SNHL) of both ears H90 .3 Active 536243584 Problem History of colon polyps Z86.010 Active 889866740 Problem Bruising, spontaneous R23.3 Active 361515736 Problem Generalized anxiety disorder F41.1 A ctive 02269245 Problem Arthralgia of hip, unspecified laterality M25.559 Active 66746657 Problem Hematuria, unspecified type R31.9 Ac tive 21807145 Problem Imbalance R26.89 Active 117326982 Problem Hammer toe of right foot M20.41 Activ e 021131210 Problem Plantar wart of right foot B07.0 Act mitchell [id number] Problem Sciatica of left side M54.32 Active 19505728 Problem Hyperlipidemia, unspecified hyperlipidemia type E7 8.5 Active 13414530 Problem Hypertension I10 Active 1319627 3 Problem Night sweats R61 Active 9797985 0 Problem Fibromyalgia M79.7 Active 2407718 7 Problem Major depressive disorder, recurrent episode, moderate F33.1 Active 827080593 Problem Acute left-sided low back pain with left-sided sciatica M54.42 Active 981784440 Problem Bladder spasm N32.89 Active 344667 006 Problem Gastritis without bleeding, unspecified chronicity, unspecified gastritis type K29.70 Active 307721997 Problem Bipolar 1 disorder, mixed F31.60 Acti ve 62897581 Problem Grief F43.20 Active 26550964 Problem Other chronic pain G89.29 Active 8 4117100 Problem Allergic rhinitis J30.9 Active 61 518305 Problem Hot flashes due to menopause N95.1 A ctive 671838381 Problem Ataxia R27.0 Active 49044378 Problem Hearing loss, unspecified laterality H91.90 Active 15546379 ALLERGIES No Information ENCOUNTERS Encounter Location Date Diagnosis [facility] [address] [facility] [id number] [address] [place] [address] Jan, [facility] [address] [facility] [id number] [address] [place] [address] Jan, [facility] [address] [facility] [id number] [address] [place] [address] Jan, [facility] [address] [facility] [id number] [address] [place] [address] Dec, [facility] [address] [facility] [id number] [address] [place] [address] Dec, [facility] [address] [facility] [id number] [address] [place] [address] Dec, [facility] [address] [facility] [id number] [address] [place] [address] Dec, Bipolar 1 disorder, mixed F3 1.60 [facility] [address] [facility] [id number] [address] [place] [address] Nov, Bipolar 1 disorder, mixed F3 1.60 [facility] [address] [facility] [id number] [address] [place] [address] Nov, Bipolar 1 disorder, mixed F3 1.60 [facility] [address] [facility] [id number] [address] [place] [address] Nov, Bipolar 1 disorder, mixed F3 1.60 [facility] [address] [facility] [id number] [address] [place] [address] Nov, Allergic rhinitis J30.9 [facility] [address] [facility] [id number] [address] [place] [address] Nov, Allergic rhinitis J30.9 [facility] [address] [facility] [id number] [address] [place] [address] Nov, [facility] [id number] [place] [address] Nov, Bipolar 1 disorder, mixed F3 1.60 [place] [address] [place] [id number] [address] [place] [address] Nov, Fibromyalgia M79.7 and Aller gic rhinitis J30.9 [facility] [address] [facility] [id number] [address] [place] [address] October, Bipolar 1 disorder, mixed F3 1.[address] [facility] [place] [address] [place] [id number] [place] [address] October, Acute nasopharyngitis J[address] [facility] [address] [address] October, Bitten or stung by nonvenomo us insect and other nonvenomous arthropods, initial encounter W57.XXXA and Insect bite (nonvenomous) of abdominal wall, initial encounter S30.861A [place] [address] [address] October, Insect bite (nonvenomous) of abdominal wall, initial encounter S30.861A ; Bitten or stung by nonvenomous insect and other nonvenomous arthropods, initial encounter W57.XXXA ; Allergic rhinitis J30.9 and Low back pain M54.5 [facility] [address] [place] [id number] [address] [place] [address] October, Bipolar 1 disorder, mixed F3 1.60 [place] [address] [address] October, [place] [address] [place] [id number] [address] [place] [address] October, [place] [address] [address] October, Bipolar 1 disorder, mixed F3 1.60 [facility] [address] [id number] [address] [place] [address] Sep, Bipolar 1 disorder, mixed F3 1.60 [facility] [address] [facility] [id number] [address] [place] [address] Sep, Other chronic pain G89.29 [facility] [address] [facility] [id number] [address] [place] [address] Sep, [facility] [address] [facility] [id number] [address] [place] [address] Sep, Bipolar 1 disorder, mixed F3 1.60 [facility] [address] [facility] [id number] [address] [place] [address] Sep, Allergic rhinitis J30.9 and Sciatica of left side M54.32 [facility] [address] [facility] [id number] [address] [place] [address] Sep, Bipolar 1 disorder, mixed F3 1.60 [facility] [address] [facility] [id number] [address] [place] [address] Sep, Bipolar 1 disorder, mixed F3 1.60 and Generalized anxiety disorder F41.1 [facility] [address] [facility] [id number] [address] [place] [address] Aug, [facility] [address] [facility] [id number] [address] [place] [address] Aug, Bipolar 1 disorder, mixed F3 1.60 [facility] [address] [facility] [id number] [address] [place] [address] Aug, Bipolar 1 disorder, mixed F3 1.60 [facility] [address] [facility] [id number] [address] [place] [address] Aug, [facility] [address] [facility] [id number] [address] [place] [address] Aug, Generalized anxiety disorder F41.1 [facility] [address] [place] [id number] [address] [place] [address] Aug, Bipolar 1 disorder, mixed F3 1.60 [facility] [address] [place] [id number] [address] [place] [address] Aug, Plantar wart of right foot B 07.0 [facility] [address] [place] [id number] [address] [place] [address] Aug, Bipolar 1 disorder, mixed F3 1.60 [facility] [address] [place] [id number] [address] [place] [address] Jul, Bipolar 1 disorder, mixed F3 1.60 [place] [address] [address] Jul, [place] [address] [address] Jul, Bipolar 1 disorder, mixed F3 1.60 [facility] [address] [place] [id number] [address] [place] [address] Jul, Generalized anxiety disorder F41.1 [facility] [address] [place] [address] Jul, Bipolar 1 disorder, mixed F3 1.60 [place] [address] [place] [id number] [address] [place] [address] Jul, Acute left-sided low back pa in with left-sided sciatica M54.42 [facility] [address] [place] [id number] [address] [place] [address] Jul, Coccydynia M53.3 [facility] [address] [place] [id number] [address] [place] [address] Jun, Bipolar 1 disorder, mixed F3 1.[address] [facility] [address] [place] [id number] [address] [place] [address] Jun, Acute nasopharyngitis J00 [facility] [address] [address] Jun, Bipolar 1 disorder, mixed F3 1.60 [place] [address] [address] Jun, Fibromyalgia M79.7 [place] [address] [address] Jun, Bipolar 1 disorder, mixed F3 1.60 [place] [address] [address] Jun, Fibromyalgia M79.7 and Bipol ar 1 disorder, mixed F31.60 [place] [address] [address] May, Bipolar 1 disorder, mixed F3 1.60 ; Generalized anxiety disorder F41.1 and Other longterm (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 Z79.899 [place] [address] [address] May, Bipolar 1 disorder, mixed F3 1.[address] [facility] [address] [place] [address] 14 May, 2017 Cough R05 and Body aches R52 [facility] [address] [address] 10 May, 2017 Bladder spasm N32.89 and Acu te cystitis without hematuria N30.00 [place] [address] [address] 07 May, 2017 Bipolar 1 disorder, mixed F3 1.60 [place] [address] [address] Apr, [place] [address] [address] Apr, Major depressive disorder, r ecurrent episode, moderate F33.1 and Encounter for immunization Z23 [place] [address] [address] Apr, Bipolar 1 disorder, mixed F3 1.60 [facility] [address] Apr, Bipolar 1 disorder, mixed F3 1.60 [facility] [address] [place] [id number] [place] [id number] Apr, Bipolar 1 disorder, mixed F3 1.60 [facility] [address] [address] Apr, Yeast vaginitis B37.3 [facility] [address] 09 Apr, 2017 Bipolar 1 disorder, mixed F3 1.[address] [facility] [address] [place] [id number] 07 Apr, 2017 Cellulitis L03.[address] for immunization Z23 [place] [address] [address] Apr, Bipolar 1 disorder, mixed F3 1.60 [place] [address] [place] [address] Mar, Bipolar 1 disorder, mixed F3 1.60 [facility] [address] [address] Mar, Bipolar 1 disorder, mixed F3 1.60 [facility] [address] [place] [address] Mar, Imbalance R26.89 and Encount er for immunization Z23 [facility] [address] [place] [address] Mar, Generalized anxiety disorder F41.1 [facility] [address] [place] [id number] Mar, Bipolar 1 disorder, mixed F3 1.60 [facility] [address] [address] Mar, Generalized anxiety disorder F41.1 [place] [address] [facility] [id number] [address] [place] [address] Mar, Bipolar 1 disorder, mixed F3 1.60 [place] [address] [facility] [id number] [address] [place] [address] Mar, Bipolar 1 disorder, mixed F3 1.60 [place] [address] [facility] [id number] [address] [place] [address] Feb, Bipolar 1 disorder, mixed F3 1.60 [place] [address] [facility] [id number] [address] [place] [address] Feb, Bipolar 1 disorder, mixed F3 1.60 and Generalized anxiety disorder F41.1 [place] [address] [place] [id number] [address] [place] [address] Feb, Gastritis without bleeding, unspecified chronicity, unspecified gastritis type K29.70 ; Hammer toe of right foot M20.41 and Other viral warts B07.8 [place] [address] [facility] [id number] [address] [place] [address] Feb, Bipolar 1 disorder, mixed F3 1.60 [place] [address] [facility] [id number] [address] [place] [address] Feb, Bipolar 1 disorder, mixed F3 1.60 [place] [address] [facility] [id number] [address] [place] [address] Feb, Bipolar 1 disorder, mixed F3 1.60 [place] [address] [facility] [id number] [address] [place] [address] Jan, Encounter for screening mamm ogram for breast cancer Z12.31 ; Other viral warts B07.8 and Allergic rhinitis J30.9 [place] [address] [facility] [id number] [address] [place] [address] Jan, Bipolar 1 disorder, mixed F3 1.60 [place] [address] [facility] [id number] [address] [place] [address] Jan, Bipolar 1 disorder, mixed F3 1.60 [place] [id number] [place] [id number] [address] [place] [address] Jan, [facility] [address] [place] [id number] [address] [place] [address] Jan, Bipolar 1 disorder, mixed F3 1.60 [facility] [address] [place] [id number] [address] [place] [address] Jan, Bipolar 1 disorder, mixed F3 1.60 [place] [address] [place] [id number] [address] [place] [address] Jan, Allergic rhinitis J30.9 ; He maturia R31.9 and Colon cancer screening Z12.11 [place] [address] [place] [id number] [address] [place] [address] Dec, Bipolar 1 disorder, mixed F3 1.60 [place] [address] [address] Dec, Bipolar 1 disorder, mixed F3 1.60 ; Generalized anxiety disorder F41.1 and Other longterm (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 Z79.899 [place] [address] [place] [id number] [address] [place] [address] Dec, Bipolar 1 disorder, mixed F3 1.60 [place] [address] [place] [address] Dec, Bipolar 1 disorder, mixed F3 1.60 [place] [address] [place] [id number] [address] [place] [address] Dec, Bipolar 1 disorder, mixed F3 1.60 [place] [address] [place] [id number] [address] [place] [address] Dec, Low back pain M54.5 and Recu rrent urinary tract infection N39.0 [place] [address] [place] [address] Nov, Bipolar 1 disorder, mixed F3 1.60 [facility] [address] [facility] [id number] [address] [place] [address] Nov, Bipolar 1 disorder, mixed F3 1.60 [facility] [address] [place] [id number] [address] [place] [address] Nov, Bipolar 1 disorder, mixed F3 1.60 [facility] [address] [place] [id number] [address] [place] [address] Nov, Bipolar 1 disorder, mixed F3 1.60 [facility] [address] [place] [id number] [address] [place] [address] Nov, [facility] [address] [place] [id number] [address] [place] [address] Nov, Anesthesia of skin R20.0 ; F requent UTI N39.0 ; Tobacco abuse Z72.0 and Colon cancer screening Z12.11 [facility] [address] [place] [id number] [address] [place] [address] Nov, Bipolar 1 disorder, mixed F3 1.60 [place] [id number] [place] [id number] [address] [place] [address] October, Bipolar 1 disorder, mixed F3 1.60 [facility] [address] [place] [id number] [address] [place] [address] October, Bipolar 1 disorder, mixed F3 1.60 [facility] [address] [place] [id number] [address] [place] [address] October, Bipolar 1 disorder, mixed F3 1.60 [facility] [address] [place] [id number] [address] [place] [address] October, Bipolar 1 disorder, mixed F3 1.60 [facility] [address] [place] [id number] [address] [place] [address] October, Bipolar 1 disorder, mixed F3 1.60 [facility] [address] [place] [id number] [address] [place] [address] October, Cervicalgia M54.2 and Bipola r 1 disorder, mixed F31.60 [place] [address] [address] October, Hypertension I10 ; Hyperlipi demia, unspecified hyperlipidemia type E78.5 and Family history of thyroid disease Z83.49 [place] [address] [address] October, [place] [address] [address] October, Hypertension I10 ; Hyperlipi demia, unspecified hyperlipidemia type E78.5 and Family history of thyroid problem Z83.49 [place] [address] [address] October, Bipolar 1 disorder, mixed F3 1.60 [place] [address] [address] Sep, Bipolar 1 disorder, mixed F3 1.60 [place] [address] [address] Sep, Bipolar 1 disorder, mixed F3 1.60 [place] [address] [address] Sep, Bipolar 1 disorder, mixed F3 1.60 [place] [address] [address] Sep, History of colon polyps Z86. 010 and Hematochezia K92.1 [place] [address] [address] Sep, Major depressive disorder, r ecurrent episode, moderate F33.1 [place] [address] [address] Sep, Bipolar 1 disorder, mixed F3 1.60 [place] [address] [address] Aug, Hot flashes due to menopause N95.1 [facility] [address] [place] [address] Aug, Bipolar 1 disorder, mixed F3 1.60 [facility] [address] [place] [address] Aug, [facility] [address] [place] [address] Aug, Bipolar 1 disorder, mixed F3 1.60 [facility] [address] [place] [address] Aug, Bipolar 1 disorder, mixed F3 1.60 [facility] [address] Aug, Hot flashes due to menopause N95.1 ; Cervicalgia M54.2 and Ataxia R27.0 [facility] [address] [address] Jul, Bipolar 1 disorder, mixed F3 1.60 [place] [address] [place] [address] Jul, Bipolar 1 disorder, mixed F3 1.60 [facility] [address] [address] Jul, Bipolar 1 disorder, mixed F3 1.60 [place] [address] [address] Jul, Bipolar 1 disorder, mixed F3 1.60 [place] [address] [place] [address] Jul, Bipolar 1 disorder, mixed F3 1.60 [facility] [address] [place] [id number] Jul, Cervicalgia M54.2 ; Tremor R 25.1 ; Hearing abnormally acute, unspecified laterality H93.239 ; Alopecia L65.9 ; Encounter for immunization Z23 and Family history of thyroid disease Z83.49 [facility] [address] [place] [address] Jul, Bipolar 1 disorder, mixed F3 1.60 [facility] [address] [place] [id number] [address] [place], [place] [address] Jun, [place] [address] [place] [address] Jun, Hearing disorder, unspecifie d laterality H93.299 [facility] [address] [place] [address] Jun, Bipolar 1 disorder, mixed F3 1.60 [place] [address] [place] [address] Jun, Bipolar 1 disorder, mixed F3 1.60 [place] [address] [place] [address] Jun, Allergic rhinitis J30.9 [facility] [address] [place] [id number] [address] [place] [address] Jun, Bipolar 1 disorder, mixed F3 1.60 [place] [address] [place] [id number] [place] [address] Jun, Bipolar 1 disorder, mixed F3 1.60 [place] [address] [place] [id number] [place] [address] Jun, Allergic rhinitis J30.9 [facility] [address] [place] [id number] [address] [place] [address] Jun, Allergic rhinitis J30.9 [facility] [address] [place] [id number] [address] [place] [address] Jun, Bipolar 1 disorder, mixed F3 1.60 [facility] [address] [place] [id number] [address] [place] [address] May, Bipolar 1 disorder, mixed F3 1.60 [place] [address] [facility] [id number] [address] [place] [address] May, Bipolar 1 disorder, mixed F3 1.60 [facility] [address] [facility] [id number] [address] [place] [address] May, [facility] [address] [facility] [id number] [address] [place] [phone] May, Bipolar 1 disorder, mixed F3 1.60 [facility] [address] [facility] [id number] [address] [place] [phone] May, Bipolar 1 disorder, mixed F3 1.60 [facility] [address] [facility] [id number] [address] [place] [phone] May, [facility] [address] [place] [id number] [address] [place] [id number] May, [facility] [address] [id number] May, [facility] [address] [place] [id number] [place] [phone] May, Abdominal pain, unspecified location R10.9 [facility] [address] [place] [id number] [place] [phone] May, [facility] [address] [place] [id number] [place] [phone] Apr, Hematuria R31.9 ; Ataxia R27 .0 and Hearing loss, unspecified laterality H91.90 [facility] [address] [facility] [id number] [address] [place] [phone] Apr, Bipolar 1 disorder, mixed F3 1.60 [facility] [address] [facility] [id number] [address] [place] [id number] Apr, Acute effusion of both middl e ears H65.193 [facility] [address] [facility] [id number] [address] [place] [id number] Apr, Hematuria R31.9 and Pyelonep hritis N12 [facility] [address] [place] [id number] [address] [place] [phone] Apr, [place] [address] [address] [place] [id number] [address] [place] [phone] Mar, Bipolar 1 disorder, mixed F3 1.60 [facility] [address] [place] [id number] [address] [place] [id number] Mar, [place] [address] [place] [id number] [place] [phone] Mar, Bipolar 1 disorder, mixed F3 1.60 [place] [address] [address] [place] [id number] [place] [phone] Mar, Bipolar 1 disorder, mixed F3 1.60 [place] [address] [place] [id number] [address] [place] [address] Mar, Encounter for immunization Z 23 and Gastritis without bleeding, unspecified chronicity, unspecified gastritis type K29.70 [place] [address] [place] [id number] [address] [place] [address] Mar, Bipolar 1 disorder, mixed F3 1.60 and Grief F43.20 [place] [address] [place] [id number] [address] [place] [address] Mar, Gastritis without bleeding, unspecified chronicity, unspecified gastritis type K29.70 [place] [address] [place] [id number] [address] [place] [address] Mar, Bipolar 1 disorder, mixed F3 1.60 [place] [address] [place] [id number] [address] [place] [address] Mar, Gastritis without bleeding, unspecified chronicity, unspecified gastritis type K29.70 [facility] [address] [facility] [id number] [address] [place] [address] Mar, [place] [address] [place] [id number] [address] [place] [address] Feb, Bipolar 1 disorder, mixed F3 1.60 [facility] [id number] [place] [address] Feb, Bipolar 1 disorder, mixed F3 1.60 and Grief F43.20 [facility] [address] [place] [id number] [address] [place] [id number] 22 Feb, 2016 Gastritis without bleeding, unspecified chronicity, unspecified gastritis type K29.70 [place] [address] [place] [id number] [address] [place] [id number] 14 Feb, 2016 Bipolar 1 disorder, mixed F3 1.[address] [facility] [address] 09 Feb, 2016 Gastroesophageal reflux dise ase, esophagitis presence not specified K21.9 [place] [address] Jan, Bipolar 1 disorder, mixed F3 1.60 [place] [address] [place] [address] Jan, Bipolar 1 disorder, mixed F3 1.60 and Unsteady gait R26.81 [place] [address] Jan, Bipolar 1 disorder, mixed F3 1.60 [place] [address] [place] [id number] [address] [place] [address] Jan, Bipolar 1 disorder, mixed F3 1.60 and Other 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 frame tender (current) drug therapy Z79.899 [place] [address] [place] [id number] [address] [place] [address] Jan, Bipolar 1 disorder, mixed F3 1.60 [place] [address] [place] [id number] [address] [place] [address] Jan, Bipolar 1 disorder, mixed F3 1.60 [place] [address] [address] Jan, Bipolar 1 disorder, mixed F3 1.60 ; Grief F43.20 and Other 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 frame tender (current) drug therapy Z79.899 [facility] [address] [place] [id number] [address] [place] [address] Jan, Bipolar 1 disorder, mixed F3 1.60 [facility] [address] [facility] [id number] [address] [place] [address] Dec, [facility] [address] [place] [id number] [address] [place] [address] Dec, Bipolar 1 disorder, mixed F3 1.60 ; Vitamin D deficiency, unspecified E55.9 ; H/O allergic rhinitis Z87.09 ; Other chronic pain G89.29 and Dorsalgia, unspecified M54.9 [place] [address] [place] [id number] [address] [place] [address] Dec, [place] [address] [place] [id number] [address] [place] [address] Dec, Bipolar 1 disorder, mixed F3 1.60 [place] [id number] [place] [id number] [address] [place] [address] Dec, Major depressive disorder, r ecurrent episode, moderate F33.1 [place] [address] [place] [id number] [address] [place] [address] Dec, Major depressive disorder, r ecurrent episode, moderate F33.1 [place] [address] [place] [id number] [address] [place] [address] Nov, [place] [address] [facility] [id number] [address] [place] [address] Nov, Bipolar 1 disorder, mixed F3 1.60 [place] [address] [place] [id number] [address] [place] [address] Nov, Major depressive disorder, r ecurrent episode, moderate F33.1 [place] [address] [place] [id number] [address] [place] [address] Nov, Cervicalgia M54.2 ; Arthralg ia of hip, unspecified laterality M25.559 ; Allergic rhinitis J30.9 and Hormone replacement therapy Z79.[address] [facility] [address] [id number] [address] [place] [address] 13 Nov, 2015 Other seasonal allergic rhin itis J30.2 [facility] [address] [id number] [address] [place] [address] October, Major depressive disorder, r ecurrent episode, moderate F33.1 [facility] [address] [id number] [address] [place] [address] October, Major depressive disorder, r ecurrent episode, moderate F33.1 and Arthralgia of hip, unspecified laterality M25.559 [facility] [address] [facility] [id number] [address] [place] [address] October, Grief F43.20 ; Hypertension I10 ; Hyperlipidemia, unspecified hyperlipidemia type E78.5 ; Other chronic pain G89.29 and Allergic rhinitis, unspecified allergic rhinitis type J30.9 [facility] [address] [id number] [address] [place] [address] October, Major depressive disorder, r ecurrent episode, moderate F33.1 [facility] [address] [id number] [address] [place] [address] Sep, Major depressive disorder, r ecurrent episode, moderate F33.1 [place] [id number] [id number] [address] [place] [address] Sep, [place] [address] [id number] [address] [place] [id number] Sep, Major depressive disorder, r ecurrent episode, moderate F33.1 [place] [address] [facility] [id number] [address] [place] [address] Sep, Grief F43.20 [place] [address] [facility] [id number] [address] [place] [address] Aug, Major depressive disorder, r ecurrent episode, moderate F33.1 [facility] [address] [place] [id number] [address] [place] [address] Aug, Bipolar 1 disorder, mixed F3 1.60 [facility] [address] [facility] [id number] [address] [place] [address] Aug, Allergic rhinitis J30.9 ; Ce rvicalgia M54.2 and Low back pain M54.5 [place] [address] [place] [id number] [address] [place] [address] Aug, Major depressive disorder, r ecurrent episode, moderate F33.[address] [facility] [address] [place] [id number] [place] [address] Aug, Sinusitis J32.9 and Tobacco 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 [place] [address] [address] Aug, [place] [address] [address] Aug, Depressive disorder, not els ewhere classified F32.9 ; Hormone replacement therapy Z79.[address] scan, head R93.0 [place] [address] [place] [id number] [place] [address] Aug, Major depressive disorder, r ecurrent episode, moderate F33.1 [place] [id number] [place] [address] Jul, Major depressive disorder, r ecurrent episode, moderate F33.1 [place] [address] [place] [id number] [address] [place] [address] Jul, Abdominal pain R10.9 and Hyp ertension I10 [place] [address] [place] [id number] [address] [place] [address] Jul, [place] [address] [place] [id number] [address] [place] [address] Jul, Major depressive disorder, r ecurrent episode, moderate F33.1 [facility] [address] [id number] [address] [place] [address] Jul, [facility] [address] [id number] [address] [place] [address] Jul, [facility] [address] [id number] [address] [place] [address] Jun, [facility] [address] [id number] [address] [place] [address] Jun, Depressive disorder, not els ewhere classified F32.9 [facility] [address] [id number] [address] [place] [address] Jun, [facility] [address] [id number] [address] [place] [address] Jun, [facility] [address] [place] [id number] [address] [place] [address] Jun, Arthralgia of hip, unspecifi ed laterality M25.559 ; Bruising, spontaneous R23.3 and Night sweats R61 [facility] [address] [facility] [id number] [address] [place] [address] Jun, [facility] [address] [facility] [id number] [address] [place] [address] Jun, [facility] [address] [facility] [id number] [address] [place] [address] May, [place] [address] [facility] [id number] [address] [place] [address] May, Myalgia M79.1 and Screening, lipid Z13.220 [place] [address] [facility] [id number] [address] [place] [address] 10 Apr, 2015 Status post cervical spinal fusion Z98.1 ; Fibromyalgia M79.7 and Unsteady gait R26.81 [facility] [address] [place] [id number] [address] [place] [address] Nov, [facility] [address] [id number] [address] [place] [address] Nov, [facility] [place] [address] [id number] [address] [place] [address] October, [facility] [address] [id number] [address] [place] [address] October, [facility] [address] [id number] [address] [place] [id number] October, [facility] [address] [id number] [address] [place] [address] October, [facility] [address] [id number] [address] [place] [address] October, [facility] [address] [id number] [address] [place] [id number] October, Dysuria 788.1 ; Nausea 787.0 2 and Urinary tract infection 599.0 [facility] [place] [address] [id number] [address] [place] [address] Sep, [facility] [address] [id number] [address] [place] [address] Sep, [facility] [address] [id number] [address] [place] [address] Aug, [facility] [address] [id number] [address] [place] [id number] Aug, [facility] [address] [id number] [address] [place] [id number] Aug, [facility] [address] [id number] [address] [place] [id number] Aug, [facility] [address] [id number] [address] [place] [id number] Aug, [facility] [address] [id number] [address] [place] [id number] 19 Aug, 2014 [facility] [address] [id number] [facility] [address] 19 Aug, 2014 [facility] [address] [id number] [address] [place] [address], [place] [address] 19 Aug, 2014 [facility] [address] [id number] [address] [place] [address], [place] [address] 19 Aug, 2014 [facility] [address] [id number] [address] [place] [address], [place] [address] 18 Aug, 2014 [facility] [address] [id number] [address] [place] [address], [place] [address] 18 Aug, 2014 [facility] [address] [id number] [address] [place] [address], [place] [address] 13 Aug, 2014 [facility] [address] [id number] [address] [place] [address], [place] [address] 13 Aug, 2014 [facility] [address] [id number] [address] [place] [address], [place] [address] 11 Aug, 2014 [facility] [address] [id number] [address] [place] [address], [place] [address] 11 Aug, 2014 [facility] [address] [id number] [address] [place] [address], [place] [address] 06 Aug, 2014 [facility] [address] [id number] [address] [place] [address], [place] [address] 06 Aug, 2014 [facility] [address] [id number] [address] [place] [address], [place] [address] 05 Aug, 2014 [facility] [address] [id number] [address] [place] [address], [place] [address] 05 Aug, 2014 [facility] [address] [id number] [address] [place] [address], [place] [address] 04 Aug, 2014 [facility] [address] [id number] [address] [place] [address], [place] [address] 03 Aug, 2014 [facility] [address] [id number] [address] [place] [address], [place] [address] Aug, [facility] [address] [id number] [address] [place] [address], [place] [address] Jul, 2014 [facility] [address] [id number] [address] [place] [address], [place] [address] Jul, 2014 [facility] [address] [id number] [address] [place] [address], [place] [address] Jul, 2014 [facility] [address] [id number] [address] [place] [address], [place] [address] Jul, 2014 [facility] [address] [id number] [address] [place] [address], [place] [address] Jul, 2014 [facility] [address] [id number] [address] [place] [address], [place] [address] Jul, 2014 [facility] [address] [id number] [address] [place] [address], [place] [address] Jul, 2014 [facility] [address] [id number] [address] [place] [address], [place] [address] Jul, 2014 [facility] [address] [id number] [address] [place] [address], [place] [address] Jul, 2014 [facility] [address] [id number] [address] [place] [address], [place] [address] Jul, 2014 [facility] [address] [id number] [address] [place] [address] Jul, 2014 [facility] [address] [id number] [address] [place] [address], [place] [address] Jul, 2014 [facility] [address] [id number] [address] [place] [address], [place] [address] Jul, 2014 [facility] [address] [id number] [address] [place] [address], [place] [address] Jul, 2014 [facility] [address] [id number] [address] [place] [address], [place] [address] Jun, [facility] [address] [id number] [address] [place] [address], [place] [address] Jun, [facility] [address] [id number] [address] [place] [address], [place] [address] Jun, [facility] [address] [id number] [address] [place] [address], [place] [address] Jun, [facility] [address] [id number] [address] [place] [address], [place] [address] Jun, [facility] [address] [id number] [address] [place] [address], [place] [address] Jun, [facility] [address] [id number] [address] [place] [address], [place] [address] May, [facility] [address] [id number] [address] [place] [address], [place] [address] May, [facility] [address] [id number] [address] [place] [address], [place] [address] May, [facility] [address] [id number] [address] [place] [address], [place] [address] May, [facility] [address] [id number] [address] [place] [address], [place] [address] May, [facility] [address] [id number] [address] [place] [address], [place] [address] May, [facility] [address] [id number] [address] [place] [address], [place] [address] Apr, [facility] [address] [id number] [address] [place] [address], [place] [address] Apr, [facility] [address] [id number] [address] [place] [address], [place] [address] Apr, [facility] [address] [id number] [address] [place] [address], [place] [address] Apr, [facility] [address] [id number] [address] [place] [address], [place] [address] Apr, [facility] [address] [id number] [address] [place] [address], [place] [address] Apr, [facility] [address] [id number] [address] [place] [address], [place] [address] Mar, [facility] [address] [id number] [address] [place] [address], [place] [address] Mar, [facility] [address] [id number] [address] [place] [address], [place] [address] Mar, [facility] [address] [id number] [address] [place] [address], [place] [address] Mar, [facility] [address] [id number] [address] [place] [address], [place] [address] Mar, [facility] [address] [id number] [address] [place] [address], [place] [address] Mar, [facility] [address] [id number] [address] [place] [address], [place] [address] Mar, [facility] [address] [id number] [address] [place] [address], [place] [address] Mar, [facility] [address] [id number] [address] [place] [address], [place] [address] Mar, [facility] [address] [id number] [address] [place] [address], [place] [address] Mar, [facility] [address] [id number] [address] [place] [address], [place] [address] Mar, [facility] [address] [id number] [address] [place] [address], [place] [address] Mar, [facility] [address] [id number] [address] [place] [address], [place] [address] Feb, [facility] [address] [id number] [address] [place] [address], [place] [address] Feb, [facility] [address] [id number] [facility] [place] [address] Feb, [facility] [address] [id number] [address] [place] [address], [place] [address] Feb, [facility] [address] [id number] [address] [place] [address], [place] [address] Feb, [facility] [address] [id number] [address] [place] [address], [place] [address] Feb, [facility] [address] [id number] [address] [place] [address], [place] [address] Feb, [facility] [address] [id number] [address] [place] [address], [place] [address] Jan, [facility] [address] [id number] [address] [place] [address], [place] [address] Jan, [facility] [address] [id number] [address] [place] [address], [place] [address] Jan, [facility] [address] [id number] [address] [place] [address], [place] [address] Dec, [facility] [address] [id number] [address] [place] [address], [place] [address] Dec, [facility] [address] [id number] [address] [place] [address], [place] [address] Dec, [facility] [address] [id number] [address] [place] [address], [place] [address] Dec, [facility] [address] [id number] [address] [place] [address], [place] [address] Sep, [facility] [address] [id number] [address] [place] [address], [place] [address] Sep, [facility] [address] [id number] [address] [place] [address], [place] [address] Sep, [facility] [address] [id number] [address] [place] [address], [place] [address] Sep, [facility] [place] [address] [id number] [address] [place] [address], [place] [address] Sep, [facility] [address] [id number] [address] [place] [address], [place] [address] Sep, [facility] [address] [id number] [address] [place] [address], [place] [address] Sep, [facility] [address] [id number] [address] [place] [address], [place] [address] Sep, [facility] [address] [id number] [address] [place] [address], [place] [address] Aug, [facility] [address] [id number] [address] [place] [address], [place] [address] Aug, [facility] [place] [address] [id number] [address] [place] [address], [place] [address] May, [facility] [address] [id number] [address] [place] [address], [place] [address] May, [facility] [place] [address] [id number] [address] [place] [address], [place] [address] Apr, [facility] [address] [id number] [address] [place] [address], [place] [address] Apr, [facility] [place] [address] [id number] [address] [place] [address], [place] [address] Apr, [facility] [address] [id number] [address] [place] [address], [place] [address] Apr, [facility] [address] [id number] [address] [place] [address], [place] [address] Apr, [facility] [address] [id number] [address] [place] [address], [place] [address] Apr, [facility] [address] [id number] [address] [place] [address], [place] [address] May, [facility] [address] [id number] [address] [place] [address], [place] [address] 18 May, 2012 [facility] [address] [id number] [address] [place] [address], [place] [address] 15 May, 2012 [facility] [address] [id number] [address] [place] [address], [place] [address] 15 May, 2012 [facility] [address] [id number] [address] [place] [address], [place] [address] 13 May, 2012 [facility] [address] [id number] [address] [place] [address], [place] [address] 13 May, 2012 [facility] [address] [id number] [address] [place] [address], [place] [address] 13 Apr, 2012 [facility] [address] [id number] [address] [place] [address], [place] [address] 13 Apr, 2012 [facility] [address] [id number] [address] [place] [address], [place] [address] 08 Apr, 2012 [facility] [address] [id number] [address] [place] [address], [place] [address] Apr, [facility] [address] [id number] [place] [address], [place] [address] 08 Apr, 2012 [facility] [address] [id number] [address] [place] [address], [place] [address] Apr, [facility] [address] [id number] [address] [place] [id number] Apr, [facility] [address] [id number] [address] [place] [address], [place] [address] Apr, [facility] [address] [id number] [address] [place] [address], [place] [address] Apr, [facility] [address] [id number] [address] [place] [address], [place] [address] Apr, [facility] [address] [id number] [address] [place] [id number] Mar, [facility] [address] [id number] [address] [place] [address], [place] [address] Mar, [facility] [address] [id number] [address] [place] [id number] Mar, [facility] [address] [id number] [address] [place] [address], [place] [address] Mar, [facility] [address] [id number] [address] [place] [address], [place] [address] Mar, [facility] [address] [id number] [address] [place] [address], [place] [address] Mar, [facility] [address] [id number] [address] [place] [address], [place] [address] Mar, [facility] [address] [id number] [address] [place] [address], [place] [address] Mar, [facility] [address] [id number] [address] [place] [address], [place] [address] Mar, [facility] [address] [id number] [address] [place] [address], [place] [address] Feb, [facility] [address] [id number] [address] [place] [address], [place] [address] 16 Feb, 2012 [facility] [address] [id number] [address] [place] [id number] Feb, [facility] [address] [id number] [address] [place] [id number] Jan, [facility] [address] [id number] [address] [place] [address], [place] [address] Jan, [facility] [address] [id number] [address] [place] [address], [place] [address] Jan, [facility] [address] [id number] [address] [place] [address], [place] [address] Jan, [facility] [address] [id number] [address] [place] [address], [place] [address] 17 Jan, 2012 [facility] [address] [id number] [address] [place] [address], [place] [address] Jan, [facility] [address] [id number] [address] [place] [address], [place] [address] Jan, [facility] [address] [id number] [address] [place] [address], [place] [address] Jan, [facility] [address] [id number] [address] [place] [address], [place] [address] Jan, [facility] [address] [id number] [address] [place] [address], [place] [address] Jan, [facility] [address] [id number] [address] [place] [address], [place] [address] Dec, [facility] [address] [id number] [address] [place] [address], [place] [address] Dec, [facility] [address] [id number] [address] [place] [address], [place] [address] Dec, [facility] [address] [id number] [address] [place] [address], [place] [address] Dec, [facility] [address] [id number] [address] [place] [address], [place] [address] Nov, [facility] [address] [id number] [address] [place] [address], [place] [address] Nov, [facility] [address] [id number] [address] [place] [address], [place] [address] Nov, [facility] [address] [id number] [address] [place] [address], [place] [address] October, [facility] [address] [id number] [address] [place] [address], [place] [address] October, [facility] [address] [id number] [address] [place] [address], [place] [address] October, [facility] [address] [id number] [address] [place] [id number] October, [facility] [address] [id number] [address] [place] [id number] October, [facility] [address] [id number] [address] [place] [id number] October, [facility] [address] [id number] [address] [place] [id number] Aug, [facility] [address] [id number] [address] [place] [id number] Mar, [facility] [address] [id number] [address] [place] [id number] Nov, [facility] [address] [id number] [address] [place] [id number] May, [facility] [address] [id number] [address] [place] [id number] May, [facility] [address] [id number] [address] [place] [id number] Apr, [facility] [address] [id number] [address] [place] [id number] Mar, [facility] [address] [id number] [address] [place] [id number] Mar, IMMUNIZATIONS No Known Immunizations SOCIAL HISTORY Never Assessed REASON FOR VISIT f/u PLAN OF CARE Activity Details Follow Up 1 Week Reason: F/U VITAL SIGNS MEDICATIONS Unknown Medications RESULTS No Results PROCEDURES Procedure Date Ordered Result Body Site [facility] VISIT MENTAL HEALTH ESTAB PT Aug 09, 2017 Psychotherapy, patient &/family, 45 minutes, established patient Aug 09, 2017 INSTRUCTIONS MEDICATIONS ADMINISTERED No Known Medications MEDICAL (GENERAL) HISTORY Type Description Date Medical History Severe spinal stenosis throu cervical spine CT and MRI done 10/2014 at [facility] [place] with Neurosurgery at Medical History Migraine BEAR [...]
--- OUTSIDE RECORDS SUMMARY | 2019-06-19 05:47 | XMS REPORT ---
Author Author Sydnie HANCOCK [facility] Address [address] [place] [address] Care Team Providers Care Shift Mgr Name Role Phone NAHOMY HANCOCK Unavailable PROBLEMS Type Condition ICD9-CM Code CDP74-DM Code Onset Dates Condition S tatus SNOMED Code Problem Hormone replacement therapy Z79.890 Ac tive 206360357 Problem Abnormal CT scan, head R93.0 Active 506261471 Problem Sensorineural hearing loss (SNHL) of both ears H90 .3 Active 647515544 Problem History of colon polyps Z86.010 Active 973784235 Problem Bruising, spontaneous R23.3 Active 416120754 Problem Generalized anxiety disorder F41.1 A ctive 80317123 Problem Arthralgia of hip, unspecified laterality M25.559 Active 32514376 Problem Hematuria, unspecified type R31.9 Ac tive 51740683 Problem Imbalance R26.89 Active 337187898 Problem Hammer toe of right foot M20.41 Activ e 400210622 Problem Plantar wart of right foot B07.0 Act mitchell [id number] Problem Sciatica of left side M54.32 Active 35045448 Problem Hyperlipidemia, unspecified hyperlipidemia type E7 8.5 Active 93403951 Problem Hypertension I10 Active 7410411 3 Problem Night sweats R61 Active 0922552 0 Problem Fibromyalgia M79.7 Active 1377971 7 Problem Major depressive disorder, recurrent episode, moderate F33.1 Active 343843820 Problem Acute left-sided low back pain with left-sided sciatica M54.42 Active 728225013 Problem Bladder spasm N32.89 Active 493740 006 Problem Gastritis without bleeding, unspecified chronicity, unspecified gastritis type K29.70 Active 790060016 Problem Bipolar 1 disorder, mixed F31.60 Acti ve 89114414 Problem Grief F43.20 Active 43140582 Problem Other chronic pain G89.29 Active 8 1576693 Problem Allergic rhinitis J30.9 Active 61 093770 Problem Hot flashes due to menopause N95.1 A ctive 405831159 Problem Ataxia R27.0 Active 37965482 Problem Hearing loss, unspecified laterality H91.90 Active 18907912 ALLERGIES No Information ENCOUNTERS Encounter Location Date Diagnosis [facility], [place] [address] [facility] [id number] [address] [place] [address] Jan, [facility], [place] [address] [facility] [id number] [address] [place] [address] Jan, [facility], [place] [address] [facility] [id number] [address] [place] [address] Jan, [facility], [place] [address] [facility] [id number] [address] [place] [address] Dec, [facility], [place] [address] [facility] [id number] [address] [place] [address] Dec, [facility], [place] [address] [facility] [id number] [address] [place] [address] Dec, [facility], [place] [address] [facility] [id number] [address] [place] [address] Dec, Bipolar 1 disorder, mixed F3 1.60 [facility], [place] [address] [facility] [id number] [address] [place] [address] Nov, Bipolar 1 disorder, mixed F3 1.60 [facility], [place] [address] [facility] [id number] [address] [place] [address] Nov, Bipolar 1 disorder, mixed F3 1.60 [facility], [place] [address] [facility] [id number] [address] [place] [address] Nov, Bipolar 1 disorder, mixed F3 1.60 [facility], [place] [address] [facility] [id number] [address] [place] [address] Nov, Allergic rhinitis J30.9 [facility], [place] [address] [facility] [id number] [address] [place] [address] Nov, Allergic rhinitis J30.9 [facility], [place] [address] [facility] [id number] [address] [place] [address] Nov, [facility], [place] [address] [place] [id number] [address] [place] [address] Nov, Bipolar 1 disorder, mixed F3 1.60 [facility], [place] [address] [place] [id number] [address] [place] [address] Nov, Fibromyalgia M79.7 and Aller gic rhinitis J30.9 [facility], [place] [address] [place] [id number] [address] [place] [address] October, Bipolar 1 disorder, mixed F3 1.60 [facility] WALK IN [facility] [address] [place] [id number] [place] [address] October, Acute nasopharyngitis J00 [facility] WALK IN [facility] [address] [address] October, Bitten or stung by nonvenomo us insect and other nonvenomous arthropods, initial encounter W57.XXXA and Insect bite (nonvenomous) of abdominal wall, initial encounter S30.861A [place] [address] [address] October, Insect bite (nonvenomous) of abdominal wall, initial encounter S30.861A ; Bitten or stung by nonvenomous insect and other nonvenomous arthropods, initial encounter W57.XXXA ; Allergic rhinitis J30.9 and Low back pain M54.5 [facility], [place] [address] [place] [id number] [address] [place] [address] October, Bipolar 1 disorder, mixed F3 1.60 [facility], [place] [address] [address] October, [place] [address] [place] [id number] [place] [address] October, [facility], [place] [address] [address] October, Bipolar 1 disorder, mixed F3 1.60 [facility], [place] [address] [id number] [address] [place] [address] Sep, Bipolar 1 disorder, mixed F3 1.60 [facility], [place] [address] [id number] [address] [place] [address] Sep, Other chronic pain G89.29 [facility], [place] [address] [id number] [address] [place] [address] Sep, [facility], [place] [address] [facility] [id number] [address] [place] [address] Sep, Bipolar 1 disorder, mixed F3 1.60 [facility], [place] [address] [facility] [id number] [address] [place] [address] Sep, Allergic rhinitis J30.9 and Sciatica of left side M54.32 [facility], [place] [address] [facility] [id number] [address] [place] [address] Sep, Bipolar 1 disorder, mixed F3 1.60 [facility], [place] [address] [facility] [id number] [address] [place] [address] Sep, Bipolar 1 disorder, mixed F3 1.60 and Generalized anxiety disorder F41.1 [facility], [place] [address] [facility] [id number] [address] [place] [address] Aug, [facility], [place] [address] [facility] [id number] [address] [place] [address] Aug, Bipolar 1 disorder, mixed F3 1.60 [facility], [place] [address] [id number] [address] [place] [address] Aug, Bipolar 1 disorder, mixed F3 1.60 [facility], [place] [address] [facility] [id number] [address] [place] [address] Aug, [facility], [place] [address] [facility] [id number] [address] [place] [address] Aug, Generalized anxiety disorder F41.1 [facility], [place] [address] [facility] [id number] [address] [place] [address] Aug, Bipolar 1 disorder, mixed F3 1.60 [facility], [place] [address] [facility] [id number] [address] [place] [address] Aug, Plantar wart of right foot B 07.0 [facility], [place] [address] [facility] [id number] [address] [place] [address] Aug, Bipolar 1 disorder, mixed F3 1.60 [facility], [place] [address] [facility] [id number] [address] [place] [address] Jul, Bipolar 1 disorder, mixed F3 1.60 [place] [address] [place] [id number] [address] [place] [address] Jul, [place] [address] [place] [id number] [place] [address] Jul, Bipolar 1 disorder, mixed F3 1.60 [facility], [place] [address] [place] [id number] [address] [place] [address] Jul, Generalized anxiety disorder F41.1 [facility], [place] [address] [place] [id number] [address] [place] [address] Jul, Bipolar 1 disorder, mixed F3 1.60 [place] [address] [place] [id number] [address] [place] [address] Jul, Acute left-sided low back pa in with left-sided sciatica M54.42 [facility], [place] [address] [facility] [id number] [address] [place] [address] Jul, Coccydynia M53.3 [place] [address] [place] [id number] [address] [place] [address] Jun, Bipolar 1 disorder, mixed F3 1.60 [facility] CARE [address] [facility] [id number] [address] [place] [address] Jun, Acute nasopharyngitis J00 [facility], [place] [address] [address] Jun, Bipolar 1 disorder, mixed F3 1.60 [place] [address] [address] Jun, Fibromyalgia M79.7 [place] [address] [address] Jun, Bipolar 1 disorder, mixed F3 1.60 [place] [address] [address] Jun, Fibromyalgia M79.7 and Bipol ar 1 disorder, mixed F31.60 [place] [address] [address] May, Bipolar 1 disorder, mixed F3 1.60 ; Generalized anxiety disorder F41.1 and Other jail (current) drug therapy Z79.899 [place] [address] [address] May, Bipolar 1 disorder, mixed F3 1.60 [facility] WALK [facility]ARE [facility] [place] [facility] [place] [address] [address] May, Cough R05 and Body aches R52 [facility] [place] [facility] [place] [address] [address] May, Bladder spasm N32.89 and Acu te cystitis without hematuria N30.00 [place] [address] [address] May, Bipolar 1 disorder, mixed F3 1.60 [place] [address] [address] Apr, [place] [address] [address] Apr, Major depressive disorder, r ecurrent episode, moderate F33.1 and Encounter for immunization Z23 [place] [address] [address] Apr, Bipolar 1 disorder, mixed F3 1.60 [facility], [place] [address] [place] [address] Apr, Bipolar 1 disorder, mixed F3 1.60 [facility], [place] [address] [address] 16 Apr, 2017 Bipolar 1 disorder, mixed F3 1.60 [facility], [place] [address] [address] Apr, Yeast vaginitis B37.3 [facility], [place] [address] [place] [address] 09 Apr, 2017 Bipolar 1 disorder, mixed F3 1.60 [facility]ARE [address] [address] 07 Apr, 2017 Cellulitis L03.[address] for immunization Z23 [place] [address] [address] Apr, Bipolar 1 disorder, mixed F3 1.60 [place] [address] [address] Mar, Bipolar 1 disorder, mixed F3 1.60 [facility], [place] [address] [address] Mar, Bipolar 1 disorder, mixed F3 1.60 [facility], [place] [address] [address] Mar, Imbalance R26.89 [address] Encount er for immunization Z23 [facility], [place] [address] [address] Mar, Generalized anxiety disorder F41.1 [facility], [place] [address] [address] Mar, Bipolar 1 disorder, mixed F3 1.60 [facility], [place] [address] [address] Mar, Generalized anxiety disorder F41.1 [place] [id number] [facility] [id number] [address] [place] [address] Mar, Bipolar 1 disorder, mixed F3 1.60 [facility], [place] [address] [facility] [id number] [address] [place] [address] Mar, Bipolar 1 disorder, mixed F3 1.60 [place] [address] [facility] [id number] [address] [place] [address] Feb, Bipolar 1 disorder, mixed F3 1.60 [place] [address] [facility] [id number] [address] [place] [address] Feb, Bipolar 1 disorder, mixed F3 1.60 and Generalized anxiety disorder F41.1 [place] [address] [place] [id number] [address] [place] [address] Feb, Gastritis without bleeding, unspecified chronicity, unspecified gastritis type K29.70 ; Hammer toe of right foot M20.41 and Other viral warts B07.8 [place] [address] [facility] [id number] [address] [place] [address] Feb, Bipolar 1 disorder, mixed F3 1.60 [place] [address] [facility] [id number] [address] [place] [address] Feb, Bipolar 1 disorder, mixed F3 1.60 [place] [address] [facility] [id number] [address] [place] [address] Feb, Bipolar 1 disorder, mixed F3 1.60 [place] [address] [facility] [id number] [address] [place] [address] Jan, Encounter for screening mamm ogram for breast cancer Z12.31 ; Other viral warts B07.8 and Allergic rhinitis J30.9 [place] [address] [facility] [id number] [address] [place] [address] Jan, Bipolar 1 disorder, mixed F3 1.60 [place] [address] [facility] [id number] [address] [place] [address] Jan, Bipolar 1 disorder, mixed F3 1.60 [facility], [place] [address] [place] [id number] [place] [address] Jan, [facility], [place] [address] [place] [id number] [place] [address] Jan, Bipolar 1 disorder, mixed F3 1.60 [facility], [place] [address] [place] [id number] [place] [address] Jan, Bipolar 1 disorder, mixed F3 1.60 [place] [address] [place] [id number] [place] [address] Jan, Allergic rhinitis J30.9 ; He maturia R31.9 and Colon cancer screening Z12.11 [place] [address] [place] [id number] [address] [place] [address] Dec, Bipolar 1 disorder, mixed F3 1.60 [place] [address] [address] Dec, Bipolar 1 disorder, mixed F3 1.60 ; Generalized anxiety disorder F41.1 and Other jail (current) drug therapy Z79.899 [place] [address] [address] Dec, Bipolar 1 disorder, mixed F3 1.60 [place] [address] [place] [id number] [address] [place] [address] Dec, Bipolar 1 disorder, mixed F3 1.60 [place] [address] [place] [id number] [place] [address] Dec, Bipolar 1 disorder, mixed F3 1.60 [place] [address] [place] [id number] [place] [address] Dec, Low back pain M54.5 and Recu rrent urinary tract infection N39.0 [place] [address] [place] [id number] [place] [address] Nov, Bipolar 1 disorder, mixed F3 1.60 [facility], [place] [address] [facility] [id number] [address] [place] [address] Nov, Bipolar 1 disorder, mixed F3 1.60 [facility], [place] [address] [facility] [id number] [address] [place] [address] Nov, Bipolar 1 disorder, mixed F3 1.60 [facility], [place] [address] [place] [id number] [place] [address] Nov, Bipolar 1 disorder, mixed F3 1.60 [facility], [place] [address] [place] [id number] [place] [address] Nov, [facility], [place] [address] [place] [id number] [place] [address] Nov, Anesthesia of skin R20.0 ; F requent UTI N39.0 ; Tobacco abuse Z72.0 and Colon cancer screening Z12.11 [facility], [place] [address] [place] [id number] [place] [address] Nov, Bipolar 1 disorder, mixed F3 1.60 [facility], [place] [address] [place] [id number] [place] [address] October, Bipolar 1 disorder, mixed F3 1.60 [facility], [place] [address] [place] [id number] [place] [address] October, Bipolar 1 disorder, mixed F3 1.60 [facility], [place] [address] [place] [id number] [address] [place] [address] October, Bipolar 1 disorder, mixed F3 1.60 [facility], [place] [address] [facility] [id number] [address] [place] [address] October, Bipolar 1 disorder, mixed F3 1.60 [facility], [place] [address] [place] [id number] [address] [place] [address] October, Bipolar 1 disorder, mixed F3 1.60 [facility], [place] [address] [place] [id number] [place] [address] October, Cervicalgia M54.2 and Bipola r 1 disorder, mixed F31.60 [place] [address] [place] [address] October, Hypertension I10 ; Hyperlipi demia, unspecified hyperlipidemia type E78.5 and Family history of thyroid disease Z83.49 [place] [address] [place] [address] October, [place] [address] October, Hypertension I10 ; Hyperlipi demia, unspecified hyperlipidemia type E78.5 and Family history of thyroid problem Z83.49 [place] [address] [place] [address] October, Bipolar 1 disorder, mixed F3 1.60 [place] [address] [address] Sep, Bipolar 1 disorder, mixed F3 1.60 [place] [address] [address] Sep, Bipolar 1 disorder, mixed F3 1.60 [place] [address] [address] Sep, Bipolar 1 disorder, mixed F3 1.60 [place] [address] [address] Sep, History of colon polyps Z86. 010 and Hematochezia K92.1 [place] [address] [address] Sep, Major depressive disorder, r ecurrent episode, moderate F33.1 [place] [address] [address] Sep, Bipolar 1 disorder, mixed F3 1.60 [place] [address] [address] Aug, Hot flashes due to menopause N95.1 [facility], [place] [address] [place] [address] Aug, Bipolar 1 disorder, mixed F3 1.60 [facility], [place] [address] [place] [address] Aug, [facility], [place] [address] [place] [address] Aug, Bipolar 1 disorder, mixed F3 1.60 [facility], [place] [address] [place] [address] Aug, Bipolar 1 disorder, mixed F3 1.60 [facility], [place] [address] [place] [address] Aug, Hot flashes due to menopause N95.1 ; Cervicalgia M54.2 and Ataxia R27.0 [facility], [place] [address] [address] Jul, Bipolar 1 disorder, mixed F3 1.60 [place] [address] [place] 9[address] Jul, Bipolar 1 disorder, mixed F3 1.60 [facility], [place] [address] [address] Jul, Bipolar 1 disorder, mixed F3 1.60 [facility], [place] [address] [address] Jul, Bipolar 1 disorder, mixed F3 1.60 [place] [address] [place] [address] Jul, Bipolar 1 disorder, mixed F3 1.60 [facility], [place] [address] [address] Jul, Cervicalgia M54.2 ; Tremor R 25.1 ; Hearing abnormally acute, unspecified laterality H93.239 ; Alopecia L65.9 ; Encounter for immunization Z23 and Family history of thyroid disease Z83.49 [facility], [place] [address] [place], [place] [address] Jul, Bipolar 1 disorder, mixed F3 1.60 [facility], [place] [address] [place] [id number] [place] [address] Jun, [place] [address] [place] [address] Jun, Hearing disorder, unspecifie d laterality H93.299 [facility], [place] [address] [place] [address] Jun, Bipolar 1 disorder, mixed F3 1.60 [place] [address] [place] [address] Jun, Bipolar 1 disorder, mixed F3 1.60 [place] [address] [address] Jun, Allergic rhinitis J30.9 [facility], [place] [address] [place] [address] Jun, Bipolar 1 disorder, mixed F3 1.60 [facility], [place] [address] [place] [id number] [address] [place] [address] Jun, Bipolar 1 disorder, mixed F3 1.60 [place] [id number] [place] [address] Jun, Allergic rhinitis J30.9 [facility], [place] [address] [place] [id number] [place] [phone] Jun, Allergic rhinitis J30.9 [facility], [place] [address] [place] [id number] [place], [place] [id number] Jun, Bipolar 1 disorder, mixed F3 1.60 [facility], [place] [address] [place] [id number] [place] [phone] May, Bipolar 1 disorder, mixed F3 1.60 [place] [id number] N [facility] [id number] [address] [place] [id number] May, Bipolar 1 disorder, mixed F3 1.60 [facility], [place] [address] [facility] [id number] [address] [place] [phone] May, [facility], [place] [address] [place] [id number] [place] [phone] May, Bipolar 1 disorder, mixed F3 1.60 [facility], [place] [address] [facility] [id number] [address] [place] [phone] May, Bipolar 1 disorder, mixed F3 1.60 [facility], [place] [address] [facility] [id number] [address] [place] [phone] May, [facility], [place] [address] [facility] [id number] [address] [place] [id number] May, [facility], [place] [address] [place] [id number] [place] [phone] May, [facility], [place] [address] [place] [id number] [place] [phone] May, Abdominal pain, unspecified location R10.9 [facility], [place] [address] [place] [id number] [place] [phone] May, [facility], [place] [address] [place] [id number] [place] [id number] Apr, Hematuria R31.9 ; Ataxia R27 .0 and Hearing loss, unspecified laterality H91.90 [facility], [place] [address] [place] [id number] [place] [phone] Apr, Bipolar 1 disorder, mixed F3 1.60 [facility] [address] [facility] [id number] [address] [place] [address] Apr, Acute effusion of both middl e ears H65.193 [facility], [place] [address] [place] [id number] [address] [place] [address] Apr, Hematuria R31.9 and Pyelonep hritis N12 [facility] [place] [address] [facility] [id number] [address] [place] [address] Apr, [facility] [place] [address] [facility] [id number] [address] [place] [address] Mar, Bipolar 1 disorder, mixed F3 1.60 [facility] [place] [address] [place] [id number] [address] [place] [address] Mar, [facility] [place] [address] [place] [id number] [address] [place] [address] Mar, Bipolar 1 disorder, mixed F3 1.60 [place] [address] [place] [id number] [address] [place] [address] Mar, Bipolar 1 disorder, mixed F3 1.60 [place] [address] [place] [id number] [address] [place] [address] Mar, Encounter for immunization Z 23 and Gastritis without bleeding, unspecified chronicity, unspecified gastritis type K29.70 [place] [address] [place] [id number] [address] [place] [address] Mar, Bipolar 1 disorder, mixed F3 1.60 and Grief F43.20 [place] [address] [place] [id number] [address] [place] [address] Mar, Gastritis without bleeding, unspecified chronicity, unspecified gastritis type K29.70 [place] [address] [place] [id number] [address] [place] [address] Mar, Bipolar 1 disorder, mixed F3 1.60 [place] [address] [facility] [id number] [address] [place] [address] Mar, Gastritis without bleeding, unspecified chronicity, unspecified gastritis type K29.70 [facility] [place] [address] [facility] [id number] [address] [place] [address] Mar, [place] [address] [place] [id number] [address] [place] [address] Feb, Bipolar 1 disorder, mixed F3 1.60 [facility] [place] [address] [place] [id number] [address] [place] [address] Feb, Bipolar 1 disorder, mixed F3 1.60 and Grief F43.20 [facility] [place] [address] [place] [id number] [address] [place] [address] 22 Feb, 2016 Gastritis without bleeding, unspecified chronicity, unspecified gastritis type K29.70 [place] [address] [place] [id number] [address] [place] [address] 14 Feb, 2016 Bipolar 1 disorder, mixed F3 1.60 [facility] [address] [place] [address] 09 Feb, 2016 Gastroesophageal reflux dise ase, esophagitis presence not specified K21.9 [place] [address] [address] Jan, Bipolar 1 disorder, mixed F3 1.60 [place] [address] [address] Jan, Bipolar 1 disorder, mixed F3 1.60 and Unsteady gait R26.81 [place] [address] [address] Jan, Bipolar 1 disorder, mixed F3 1.60 [place] [address] [place] [id number] [address] [place] [address] Jan, Bipolar 1 disorder, mixed F3 1.60 and 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 [place] [address] [place] [id number] [address] [place] [address] Jan, Bipolar 1 disorder, mixed F3 1.60 [place] [address] [place] [id number] [place] [address] Jan, Bipolar 1 disorder, mixed F3 1.60 [place] [address] [address] Jan, Bipolar 1 disorder, mixed F3 1.60 ; Grief F43.20 and 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 [facility] [place] [address] [place] [id number] [address] [place] [address] Jan, Bipolar 1 disorder, mixed F3 1.60 [facility] [place] [address] [place] [id number] [address] [place] [address] Dec, [facility] [place] [address] [place] [id number] [address] [place] [address] Dec, Bipolar 1 disorder, mixed F3 1.60 ; Vitamin D deficiency, unspecified E55.9 ; H/O allergic rhinitis Z87.09 ; Other chronic pain G89.29 and Dorsalgia, unspecified M54.9 [place] [address] [place] [id number] [address] [place] [address] Dec, [place] [address] [place] [id number] [address] [place] [address] Dec, Bipolar 1 disorder, mixed F3 1.60 [facility] [place] [address] [place] [id number] [address] [place] [address] Dec, Major depressive disorder, r ecurrent episode, moderate F33.1 [place] [address] [place] [id number] [address] [place] [address] Dec, Major depressive disorder, r ecurrent episode, moderate F33.1 [place] [address] [place] [id number] [address] [place] [address] Nov, [place] [address] [facility] [id number] [address] [place] [address] Nov, Bipolar 1 disorder, mixed F3 1.60 [facility] [place] [address] [place] [id number] [address] [place] [address] Nov, Major depressive disorder, r ecurrent episode, moderate F33.1 [place] [address] [place] [id number] [address] [place] [address] Nov, Cervicalgia M54.2 ; Arthralg ia of hip, unspecified laterality M25.559 ; Allergic rhinitis J30.9 and Hormone replacement therapy Z79.890 [facility] [address] [facility] [id number] [address] [place] [address] 13 Nov, 2015 Other seasonal allergic rhin itis J30.2 [facility], [place] [address] [facility] [id number] [address] [place] [address] October, Major depressive disorder, r ecurrent episode, moderate F33.1 [facility] [place] [address] [facility] [id number] [address] [place] [address] October, Major depressive disorder, r ecurrent episode, moderate F33.1 and Arthralgia of hip, unspecified laterality M25.559 [facility] [place] [address] [facility] [id number] [address] [place] [address] October, Grief F43.20 ; Hypertension I10 ; Hyperlipidemia, unspecified hyperlipidemia type E78.5 ; Other chronic pain G89.29 and Allergic rhinitis, unspecified allergic rhinitis type J30.9 [facility] [place] [address] [facility] [id number] [address] [place] [address] October, Major depressive disorder, r ecurrent episode, moderate F33.1 [facility] [place] [address] [facility] [id number] [address] [place] [address] Sep, Major depressive disorder, r ecurrent episode, moderate F33.1 [place] [id number] [facility] [id number] [address] [place] [address] Sep, [place] [address] [facility] [id number] [address] [place] [address] Sep, Major depressive disorder, r ecurrent episode, moderate F33.1 [place] [address] [facility] [id number] [address] [place] [address] Sep, Grief F43.20 [place] [address] [facility] [id number] [address] [place] [address] Aug, Major depressive disorder, r ecurrent episode, moderate F33.1 [facility], [place] [id number] [place] [address] Aug, Bipolar 1 disorder, mixed F3 1.60 [facility] [place] [address] [facility] [id number] [address] [place] [address] Aug, Allergic rhinitis J30.9 ; Ce rvicalgia M54.2 and Low back pain M54.5 [facility], [place] [address] [place] [address] Aug, Major depressive disorder, r ecurrent episode, moderate F33.1 [facility] [address] [address] Aug, Sinusitis J32.9 and Tobacco 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 [place] [address] [address] Aug, [place] [address] [address] Aug, Depressive disorder, not els ewhere classified F32.9 ; Hormone replacement therapy Z79.[address] scan, head R93.0 [place] [address] [place] [id number] [address] [place] [address] Aug, Major depressive disorder, r ecurrent episode, moderate F33.1 [place] [address] [place] [id number] [address] [place] [address] Jul, Major depressive disorder, r ecurrent episode, moderate F33.1 [place] [address] [place] [id number] [address] [place] [address] Jul, Abdominal pain R10.9 and Hyp ertension I10 [place] [address] [place] [id number] [place] [address] Jul, [place] [address] [place] [id number] [address] [place] [address] Jul, Major depressive disorder, r ecurrent episode, moderate F33.1 [facility] [place] [address] [id number] [address] [place] [address] Jul, [facility] [place] [address] [facility] [id number] [address] [place] [address] Jul, [facility] [place] [address] [facility] [id number] [address] [place] [address] Jun, [facility] [place] [address] [place] [id number] [address] [place] [address] Jun, Depressive disorder, not els ewhere classified F32.9 [facility], [place] [address] [place] [id number] [address] [place] [address] Jun, [place] [address] [place] [id number] [address] [place] [address] Jun, [place] [address] [place] [id number] [place] [address] Jun, Arthralgia of hip, unspecifi ed laterality M25.559 ; Bruising, spontaneous R23.3 and Night sweats R61 [place] [address] [place] [id number] [address] [place] [address] Jun, [place] [address] [place] [id number] [address] [place] [address] Jun, [facility], [place] [address] [place] [id number] [address] [place] [address] May, [place] [address] [place] [id number] [place] [address] 15 May, 2015 Myalgia M79.1 and Screening, lipid Z13.220 [place] [address] [place] [id number] [address] [place] [address] 10 Apr, 2015 Status post cervical spinal fusion Z98.1 ; Fibromyalgia M79.7 and Unsteady gait R26.81 [place] [address] [place] [id number] [address] [place] [address] Nov, [facility] [address] [id number] [address] [place] [address] Nov, [facility] [address] [id number] [address] [place] [address] October, [facility] [address] [id number] [address] [place] [address] October, [facility] [address] [id number] [address] [place] [address] October, [facility] [address] [id number] [address] [place] [address] October, [facility] [address] [id number] [address] [place] [address] October, [facility] [address] [id number] [address] [place] [address] October, Dysuria 788.1 ; Nausea 787.0 2 and Urinary tract infection 599.0 [facility] [address] [id number] [address] [place] [address] Sep, [facility] [address] [id number] [address] [place] [address] Sep, [facility] [address] [id number] [address] [place] [address] Aug, [facility] [address] [id number] [address] [place] [address] Aug, [facility] [address] [id number] [address] [place] [address] Aug, [facility] [address] [id number] [address] [place] [address] Aug, [facility] [address] [id number] [address] [place] [address] Aug, [facility] [address] [id number] [address] [place] [address] 19 Aug, 2014 [facility] [address] [id number] [address] [place] [address], [place] [address] 19 Aug, 2014 [facility] [address] [id number] [address] [place] [address], [place] [address] 19 Aug, 2014 [facility] [address] [id number] [address] [place] [address], [place] [address] 19 Aug, 2014 [facility] [address] [id number] [address] [place] [address], [place] [address] 18 Aug, 2014 [facility] [address] [id number] [address] [place] [address], [place] [address] 18 Aug, 2014 [facility] [address] [id number] [address] [place] [address], [place] [address] 13 Aug, 2014 [facility] [address] [id number] [address] [place] [address], [place] [address] 13 Aug, 2014 [facility] [address] [id number] [address] [place] [address], [place] [address] 11 Aug, 2014 [facility] [address] [id number] [address] [place] [address], [place] [address] 11 Aug, 2014 [facility] [address] [id number] [address] [place] [address], [place] [address] 06 Aug, 2014 [facility] [address] [id number] [address] [place] [address], [place] [address] 06 Aug, 2014 [facility] [address] [id number] [address] [place] [address], [place] [address] 05 Aug, 2014 [facility] [address] [id number] [address] [place] [address], [place] [address] 05 Aug, 2014 [facility] [address] [id number] [address] [place] [address], [place] [address] 04 Aug, 2014 [facility] [address] [id number] [address] [place] [address], [place] [address] 03 Aug, 2014 [facility] [address] [id number] [address] [place] [address], [place] [address] Aug, [facility] [address] [id number] [address] [place] [address], [place] [address] Jul, 2014 [facility] [address] [id number] [address] [place] [address], [place] [address] Jul, 2014 [facility] [address] [id number] [address] [place] [address], [place] [address] Jul, 2014 [facility] [address] [id number] [address] [place] [address], [place] [address] Jul, 2014 [facility] [address] [id number] [address] [place] [address], [place] [address] Jul, 2014 [facility] [address] [id number] [address] [place] [address], [place] [address] Jul, 2014 [facility] [address] [id number] [address] [place] [address], [place] [address] Jul, 2014 [facility] [address] [id number] [address] [place] [address], [place] [address] Jul, 2014 [facility] [address] [id number] [address] [place] [address], [place] [address] Jul, 2014 [facility] [address] [id number] [address] [place] [address], [place] [address] Jul, 2014 [facility] [address] [id number] [address] [place] [address] Jul, 2014 [facility] [address] [id number] [address] [place] [address], [place] [address] Jul, 2014 [facility] [address] [id number] [address] [place] [address], [place] [address] Jul, 2014 [facility] [address] [id number] [address] [place] [address], [place] [address] Jul, 2014 [facility] [address] [id number] [address] [place] [address], [place] [address] Jun, [facility] [address] [id number] [address] [place] [address], [place] [address] Jun, [facility] [address] [id number] [address] [place] [address], [place] [address] Jun, [facility] [address] [id number] [address] [place] [address], [place] [address] Jun, [facility] [address] [id number] [address] [place] [address], [place] [address] Jun, [facility] [address] [id number] [address] [place] [address], [place] [address] Jun, [facility] [address] [id number] [address] [place] [address], [place] [address] May, [facility] [address] [id number] [address] [place] [address], [place] [address] May, [facility] [address] [id number] [address] [place] [address], [place] [address] May, [facility] [address] [id number] [address] [place] [address], [place] [address] May, [facility] [address] [id number] [address] [place] [address], [place] [address] May, [facility] [address] [id number] [address] [place] [address], [place] [address] May, [facility] [address] [id number] [address] [place] [address], [place] [address] Apr, [facility] [address] [id number] [address] [place] [address], [place] [address] Apr, [facility] [address] [id number] [address] [place] [address], [place] [address] Apr, [facility] [address] [id number] [address] [place] [address], [place] [address] Apr, [facility] [address] [id number] [address] [place] [address], [place] [address] Apr, [facility] [address] [id number] [address] [place] [address], [place] [address] Apr, [facility] [address] [id number] [address] [place] [address], [place] [address] Mar, [facility] [address] [id number] [address] [place] [address], [place] [address] Mar, [facility] [address] [id number] [address] [place] [address], [place] [address] Mar, [facility] [address] [id number] [address] [place] [address], [place] [address] Mar, [facility] [address] [id number] [address] [place] [address], [place] [address] Mar, [facility] [address] [id number] [address] [place] [address], [place] [address] Mar, [facility] [address] [id number] [address] [place] [address], [place] [address] Mar, [facility] [address] [id number] [address] [place] [address], [place] [address] Mar, [facility] [address] [id number] [address] [place] [address], [place] [address] Mar, [facility] [address] [id number] [address] [place] [address], [place] [address] Mar, [facility] [address] [id number] [address] [place] [address], [place] [address] Mar, [facility] [address] [id number] [address] [place] [address], [place] [address] Mar, [facility] [address] [id number] [address] [place] [address], [place] [address] Feb, [facility] [address] [id number] [address] [place] [address], [place] [address] Feb, [facility] [address] [id number] [address] [address] Feb, [facility] [address] [id number] [address] [place] [address], [place] [address] Feb, [facility] [address] [id number] [address] [place] [address], [place] [address] Feb, [facility] [address] [id number] [address] [place] [address], [place] [address] Feb, [facility] [address] [id number] [address] [place] [address], [place] [address] Feb, [facility] [address] [id number] [address] [place] [address], [place] [address] Jan, [facility] [address] [id number] [address] [place] [address], [place] [address] Jan, [facility] [address] [id number] [address] [place] [address], [place] [address] Jan, [facility] [address] [id number] [address] [place] [address], [place] [address] Dec, [facility] [address] [id number] [address] [place] [address], [place] [address] Dec, [facility] [address] [id number] [address] [place] [address], [place] [address] Dec, [facility] [address] [id number] [address] [place] [address], [place] [address] Dec, [facility] [address] [id number] [address] [place] [address], [place] [address] Sep, [facility] [address] [id number] [address] [place] [address], [place] [address] Sep, [facility] [address] [id number] [address] [place] [address], [place] [address] Sep, [facility] [address] [id number] [address] [place] [address], [place] [address] Sep, [facility] [address] [id number] [address] [place] [address], [place] [address] Sep, [facility] [address] [id number] [address] [place] [address], [place] [address] Sep, [facility] [address] [id number] [address] [place] [address], [place] [address] Sep, [facility] [address] [id number] [address] [place] [address], [place] [address] Sep, [facility] [address] [id number] [address] [place] [address], [place] [address] Aug, [facility] [address] [id number] [address] [place] [address], [place] [address] Aug, [facility] [address] [id number] [address] [place] [address], [place] [address] May, [facility] [address] [id number] [address] [place] [address], [place] [address] May, [facility] [address] [id number] [address] [place] [address], [place] [address] Apr, [facility] [address] [id number] [address] [place] [address], [place] [address] Apr, [facility] [address] [id number] [address] [place] [address], [place] [address] Apr, [facility] [address] [id number] [address] [place] [address], [place] [address] Apr, [facility] [address] [id number] [address] [place] [address], [place] [address] Apr, [facility] [address] [id number] [address] [place] [address], [place] [address] Apr, [facility] [address] [id number] [address] [place] [address], [place] [address] May, [facility] [address] [id number] [address] [place] [address], [place] [address] 18 May, 2012 [facility] [address] [id number] [address] [place] [address], [place] [address] 15 May, 2012 [facility] [address] [id number] [address] [place] [address], [place] [address] 15 May, 2012 [facility] [address] [id number] [address] [place] [address], [place] [address] 13 May, 2012 [facility] [address] [id number] [address] [place] [address], [place] [address] 13 May, 2012 [facility] [address] [id number] [address] [place] [address], [place] [address] 13 Apr, 2012 [facility] [address] [id number] [address] [place] [address], [place] [address] 13 Apr, 2012 [facility] [address] [id number] [address] [place] [address], [place] [address] 08 Apr, 2012 [facility] [address] [id number] [address] [place] [address], [place] [address] Apr, [facility] [address] [id number] [address] [place] [address], [place] [address] Apr, [facility] [address] [id number] [address] [place] [address] Apr, [facility] [address] [id number] [address] [place] [id number] Apr, [facility] [address] [id number] [address] [place] [address], [place] [address] Apr, [facility] [address] [id number] [address] [place] [address], [place] [address] Apr, [facility] [address] [id number] [address] [place] [address], [place] [address] Apr, [facility] [address] [id number] [address] [place] [id number] Mar, [facility] [address] [id number] [address] [place] [address], [place] [address] Mar, [facility] [address] [id number] [address] [place] [address], [place] [address] Mar, [facility] [address] [id number] [address] [place] [address], [place] [address] Mar, [facility] [address] [id number] [address] [place] [address], [place] [address] Mar, [facility] [address] [id number] [address] [place] [address], [place] [address] Mar, [facility] [address] [id number] [address] [place] [address], [place] [address] Mar, [facility] [address] [id number] [address] [place] [address], [place] [address] Mar, [facility] [address] [id number] [address] [place] [address], [place] [address] Mar, [facility] [address] [id number] [address] [place] [address], [place] [address] 25 Feb, 2012 [facility] [address] [id number] [address] [place] [address], [place] [address] 16 Feb, 2012 [facility] [address] [id number] [address] [place] [address], [place] [address] Feb, [facility] [address] [id number] [address] [place] [id number] Jan, [facility] [address] [id number] [address] [place] [address], [place] [address] Jan, [facility] [address] [id number] [address] [place] [id number] Jan, [facility] [address] [id number] [address] [place] [address], [place] [address] Jan, [facility] [address] [id number] [facility] [address] 17 Jan, 2012 [facility] [address] [id number] [facility] [address] Jan, [facility] [address] [id number] [address] [place] [address], [place] [address] Jan, [facility] [address] [id number] [address] [place] [address], [place] [address] Jan, [facility] [address] [id number] [address] [place] [address], [place] [address] Jan, [facility] [address] [id number] [address] [place] [address], [place] [address] Jan, [facility] [address] [id number] [address] [place] [address], [place] [address] Dec, [facility] [address] [id number] [address] [place] [address], [place] [address] Dec, [facility] [address] [id number] [address] [place] [address], [place] [address] Dec, [facility] [address] [id number] [address] [place] [address], [place] [address] Dec, [facility] [address] [id number] [address] [place] [address], [place] [address] Nov, [facility] [address] [id number] [address] [place] [address], [place] [address] Nov, [facility] [address] [id number] [address] [place] [address], [place] [address] Nov, [facility] [address] [id number] [address] [place] [address], [place] [address] October, [facility] [address] [id number] [address] [place] [address], [place] [address] October, [facility] [address] [id number] [address] [place], [place] [address] [address] October, [facility] [place] [address] [id number] [address] [place] [id number] October, [facility] [place] [address] [id number] [address] [place] [id number] October, [facility] [place] [address] [id number] [address] [place] [address] October, [facility] [place] [address] [id number] [address] [place] [id number] Aug, [facility] [place] [address] [id number] [address] [place] [id number] Mar, [facility] [place] [address] [id number] [address] [place] [address] Nov, [facility] [place] [address] [id number] [address] [place] [address] May, [facility] [place] [address] [id number] [address] [place] [id number] May, [facility] [place] [address] [id number] [address] [place] [address] Apr, [facility] [place] [address] [id number] [address] [place] [id number] Mar, [facility] [place] [address] [id number] [address] [place] [id number] Mar, IMMUNIZATIONS No Known Immunizations SOCIAL HISTORY Never Assessed REASON FOR VISIT requesting a returned call PLAN OF CARE VITAL SIGNS MEDICATIONS [...]
--- OUTSIDE RECORDS SUMMARY | 2019-06-19 05:47 | XMS REPORT ---
Author Author Sydnie HANCOCK [facility] Address [address] [place] [address] Care Team Providers Care Soap Grinder Name Role Phone NAHOMY HANCOCK Unavailable PROBLEMS Type Condition ICD9-CM Code KQV17-OM Code Onset Dates Condition S tatus SNOMED Code Problem Hormone replacement therapy Z79.890 Ac tive 045745332 Problem Abnormal CT scan, head R93.0 Active 408202175 Problem Sensorineural hearing loss (SNHL) of both ears H90 .3 Active 011638519 Problem History of colon polyps Z86.010 Active 083962299 Problem Bruising, spontaneous R23.3 Active 897432972 Problem Generalized anxiety disorder F41.1 A ctive 32341136 Problem Arthralgia of hip, unspecified laterality M25.559 Active 58114796 Problem Hematuria, unspecified type R31.9 Ac tive 87197158 Problem Imbalance R26.89 Active 030629167 Problem Hammer toe of right foot M20.41 Activ e 970935545 Problem Plantar wart of right foot B07.0 Act mitchell [id number] Problem Sciatica of left side M54.32 Active 92404916 Problem Hyperlipidemia, unspecified hyperlipidemia type E7 8.5 Active 65938973 Problem Hypertension I10 Active 2456345 3 Problem Night sweats R61 Active 0348844 0 Problem Fibromyalgia M79.7 Active 6105978 7 Problem Major depressive disorder, recurrent episode, moderate F33.1 Active 413844811 Problem Acute left-sided low back pain with left-sided sciatica M54.42 Active 697205834 Problem Bladder spasm N32.89 Active 337419 006 Problem Gastritis without bleeding, unspecified chronicity, unspecified gastritis type K29.70 Active 543641611 Problem Bipolar 1 disorder, mixed F31.60 Acti ve 65243320 Problem Grief F43.20 Active 76207836 Problem Other chronic pain G89.29 Active 8 1881937 Problem Allergic rhinitis J30.9 Active 61 967239 Problem Hot flashes due to menopause N95.1 A ctive 162858323 Problem Ataxia R27.0 Active 61017500 Problem Hearing loss, unspecified laterality H91.90 Active 77707404 ALLERGIES No Information ENCOUNTERS Encounter Location Date Diagnosis [facility] [address] [address] Dec, [facility] [address] [address] Nov, [facility] [address] [address] Nov, [place] [address] [address] Nov, [facility] [address] [address] Nov, [facility] [address] [address] October, Bipolar 1 disorder, mixed F3 1.60 [facility] [address] [address] October, Acute nasopharyngitis J00 [facility] IN [facility] [address] [address] October, Bitten or stung by nonvenomo us insect and other nonvenomous arthropods, initial encounter W57.XXXA and Insect bite (nonvenomous) of abdominal wall, initial encounter S30.861A [place] [address] [address] October, Insect bite (nonvenomous) of abdominal wall, initial encounter S30.861A ; Bitten or stung by nonvenomous insect and other nonvenomous arthropods, initial encounter W57.XXXA ; Allergic rhinitis J30.9 and Low back pain M54.5 [place] [address] [address] October, Bipolar 1 disorder, mixed F3 1.60 [facility] [address] [id number] [address] [place] [address] October, [facility] [address] [facility] [id number] [address] [place] [address] October, [facility] [address] [facility] [id number] [address] [place] [address] October, Bipolar 1 disorder, mixed F3 1.60 [facility] [address] [id number] [address] [place] [address] Sep, Bipolar 1 disorder, mixed F3 1.60 [facility] [address] [facility] [id number] [address] [place] [address] Sep, Other chronic pain G89.29 [facility] [address] [facility] [id number] [address] [place] [address] Sep, [facility] [address] [facility] [id number] [address] [place] [id number] Sep, Bipolar 1 disorder, mixed F3 1.60 [facility] [address] [facility] [id number] [address] [place] [address] Sep, Allergic rhinitis J30.9 and Sciatica of left side M54.32 [facility] [address] [facility] [id number] [address] [place] [address] Sep, Bipolar 1 disorder, mixed F3 1.60 [facility] [address] [facility] [id number] [address] [place] [id number] Sep, Bipolar 1 disorder, mixed F3 1.60 and Generalized anxiety disorder F41.1 [facility] [address] [facility] [id number] [address] [place] [id number] Aug, [facility] [address] [facility] [id number] [address] [place] [address] Aug, Bipolar 1 disorder, mixed F3 1.60 [facility] [address] [place] [id number] [address] [place] [address] Aug, Bipolar 1 disorder, mixed F3 1.60 [facility] [address] [facility] [id number] [address] [place] [address] Aug, [facility] [address] [facility] [id number] [address] [place] [id number] Aug, Generalized anxiety disorder F41.1 [facility] [address] [facility] [id number] [address] [place] [id number] Aug, Bipolar 1 disorder, mixed F3 1.60 [facility] [address] [facility] [id number] [address] [place] [id number] Aug, Plantar wart of right foot B 07.0 [facility] [address] [facility] [id number] [address] [place] [id number] Aug, Bipolar 1 disorder, mixed F3 1.60 [facility] [address] [place] [id number] [address] [place] [address] Jul, Bipolar 1 disorder, mixed F3 1.60 [facility] [address] [facility] [id number] [address] [place] [id number] Jul, [facility] [address] [facility] [id number] [address] [place] [id number] Jul, Bipolar 1 disorder, mixed F3 1.60 [facility] [address] [facility] [id number] [address] [place] [address] Jul, Generalized anxiety disorder F41.1 [facility] [address] [facility] [id number] [address] [place] [address] Jul, Bipolar 1 disorder, mixed F3 1.60 [facility] [address] [facility] [id number] [address] [place] [id number] Jul, Acute left-sided low back pa in with left-sided sciatica M54.42 [facility] [address] [facility] [id number] [address] [place] [address] Jul, Coccydynia M53.3 [place] [address] [place] [address] Jun, Bipolar 1 disorder, mixed F3 1.60 [facility] [address] [place] [id number] [address] [place] [address] Jun, Acute nasopharyngitis J00 [place] [address] [address] Jun, Bipolar 1 disorder, mixed F3 1.60 [place] [address] [address] Jun, Fibromyalgia M79.7 [place] [address] [address] [place] [id number] [place] [address] Jun, Bipolar 1 disorder, mixed F3 1.60 [place] [address] [address] Jun, Fibromyalgia M79.7 and Bipol ar 1 disorder, mixed F31.60 [place] [address] [address] May, Bipolar 1 disorder, mixed F3 1.60 ; Generalized anxiety disorder F41.1 and Other longterm (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 Z79.899 [place] [address] [address] May, Bipolar 1 disorder, mixed F3 1.60 [facility] [address] [place] [id number] [place] [address] 14 May, 2017 Cough R05 and Body aches R52 [facility]ALK [facility] [place] [address] [address] 10 May, 2017 Bladder spasm N32.89 and Acu te cystitis without hematuria N30.00 [place] [address] [address] May, Bipolar 1 disorder, mixed F3 1.60 [facility] [address] [place] [id number] [address] [place] [address] 30 Apr, 2017 [facility] [address] [place] [address] Apr, Major depressive disorder, r ecurrent episode, moderate F33.1 and Encounter for immunization Z23 [facility] [address] [place] [address] Apr, Bipolar 1 disorder, mixed F3 1.60 [facility] [address] [address] Apr, Bipolar 1 disorder, mixed F3 1.60 [place] [address] [address] 16 Apr, 2017 Bipolar 1 disorder, mixed F3 1.60 [facility] [address] [address] Apr, Yeast vaginitis B37.3 [facility] [address] [address] 09 Apr, 2017 Bipolar 1 disorder, mixed F3 1.60 [facility] [address] [address] 07 Apr, 2017 [address]ulitis L03[address] for immunization Z23 [facility] [address] [address] Apr, Bipolar 1 disorder, mixed F3 1.60 [facility] [address] [address] Mar, Bipolar 1 disorder, mixed F3 1.60 [place] [address] [address] Mar, Bipolar 1 disorder, mixed F3 1.60 [facility] [address] [address] Mar, Imbalance R26.89 [address] En[address] er for immunization Z23 [place] [address] [address] [place] [id number] [address] [place] [address] 18 Mar, 2017 Generalized anxiety disorder F41.1 [place] [address] [address] [place] [id number] [address] [place] [address] Mar, Bipolar 1 disorder, mixed F3 1.60 [place] [address] [address] Mar, Generalized anxiety disorder F41.1 [place] [address] [address] Mar, Bipolar 1 disorder, mixed F3 1.60 [place] [address] [address] [place] [address] Mar, Bipolar 1 disorder, mixed F3 1.60 [place] [address] [address] 27 Feb, 2017 Bipolar 1 disorder, mixed F3 1.60 [place] [address] [address] 25 Feb, 2017 Bipolar 1 disorder, mixed F3 1.60 and Generalized anxiety disorder F41.1 [place] [address] [address] Feb, Gastritis without bleeding, unspecified chronicity, unspecified gastritis type K29.70 ; Hammer toe of right foot M20.41 and Other viral warts B07.8 [place] [address] [place] [address] 20 Feb, 2017 Bipolar 1 disorder, mixed F3 1.60 [place] [address] [address] 13 Feb, 2017 Bipolar 1 disorder, mixed F3 1.60 [place] [address] [address] [place] [id number] [address] [place] [id number] 05 Feb, 2017 Bipolar 1 disorder, mixed F3 1.60 [place] [address] [address] [place] [id number] [place] [address] 31 Jan, 2017 Encounter for screening mamm ogram for breast cancer Z12.31 ; Other viral warts B07.8 and Allergic rhinitis J30.9 [facility] [address] [facility] [id number] [address] [place] [address] Jan, Bipolar 1 disorder, mixed F3 1.60 [facility] [address] [facility] [id number] [address] [place] [id number] Jan, Bipolar 1 disorder, mixed F3 1.60 [place] [address] [address] [place] [id number] [address] [place] [address] Jan, [place] [address] [place] [id number] [place] [address] Jan, Bipolar 1 disorder, mixed F3 1.60 [place] [address] [place] [address] Jan, Bipolar 1 disorder, mixed F3 1.60 [place] [address] [address] [place] [id number] [place] [address] Jan, Allergic rhinitis J30.9 ; He maturia R31.9 and Colon cancer screening Z12.11 [place] [address] [address] [place] [id number] [address] [place] [address] Dec, Bipolar 1 disorder, mixed F3 1.60 [place] [address] [address] [place] [id number] [address] [place] [address] Dec, Bipolar 1 disorder, mixed F3 1.60 ; Generalized anxiety disorder F41.1 and Other rn long term care (current) drug therapy Z79.899 [place] [address] [address] [place] [id number] [address] [place] [address] Dec, Bipolar 1 disorder, mixed F3 1.60 [place] [address] [address] [place] [id number] [place] [address] Dec, Bipolar 1 disorder, mixed F3 1.60 [place] [address] [address] [place] [address] [place] [address] Dec, Bipolar 1 disorder, mixed F3 1.60 [facility] [address] [facility] [id number] [address] [place] [address] Dec, Low back pain M54.5 and Recu rrent urinary tract infection N39.0 [facility] [address] [facility] [id number] [address] [place] [address] Nov, Bipolar 1 disorder, mixed F3 1.60 [facility] [address] [facility] [id number] [address] [place] [address] Nov, Bipolar 1 disorder, mixed F3 1.60 [facility] [address] [facility] [id number] [address] [place] [address] Nov, Bipolar 1 disorder, mixed F3 1.60 [facility] [address] [facility] [id number] [address] [place] [address] Nov, Bipolar 1 disorder, mixed F3 1.60 [facility] [address] [facility] [id number] [address] [place] [address] Nov, [facility] [address] [facility] [id number] [address] [place] [address] Nov, Anesthesia of skin R20.0 ; F requent UTI N39.0 ; Tobacco abuse Z72.0 and Colon cancer screening Z12.11 [facility] [address] [facility] [id number] [address] [place] [address] Nov, Bipolar 1 disorder, mixed F3 1.60 [facility] [address] [facility] [id number] [address] [place] [address] October, Bipolar 1 disorder, mixed F3 1.60 [facility] [address] [facility] [id number] [address] [place] [address] October, Bipolar 1 disorder, mixed F3 1.60 [facility] [address] [facility] [id number] [address] [place] [address] October, Bipolar 1 disorder, mixed F3 1.60 [facility] [address] [place] [id number] [address] [place] [address] October, Bipolar 1 disorder, mixed F3 1.60 [place] [address] [address] [place] [id number] [place] [address] October, Bipolar 1 disorder, mixed F3 1.60 [place] [address] [address] [place] [id number] [place] [address] October, Cervicalgia M54.2 and Bipola r 1 disorder, mixed F31.60 [place] [address] [address] [place] [id number] [address] [place] [address] October, Hypertension I10 ; Hyperlipi demia, unspecified hyperlipidemia type E78.5 and Family history of thyroid disease Z83.49 [place] [address] [address] October, [place] [address] [address] October, Hypertension I10 ; Hyperlipi demia, unspecified hyperlipidemia type E78.5 and Family history of thyroid problem Z83.49 [place] [address] [address] October, Bipolar 1 disorder, mixed F3 1.60 [place] [address] [address] Sep, Bipolar 1 disorder, mixed F3 1.60 [place] [address] [address] [place] [id number] [address] [place] [address] Sep, Bipolar 1 disorder, mixed F3 1.60 [place] [address] [address] [place] [id number] [place] [address] Sep, Bipolar 1 disorder, mixed F3 1.60 [place] [address] [address] [place] [id number] [address] [place] [address] Sep, History of colon polyps Z86. 010 and Hematochezia K92.1 [facility] [address] [facility] [id number] [address] [place] [address] Sep, Major depressive disorder, r ecurrent episode, moderate F33.1 [facility] [address] [facility] [id number] [address] [place] [address] Sep, Bipolar 1 disorder, mixed F3 1.60 [facility] [address] [place] [id number] [address] [place] [address] Aug, Hot flashes due to menopause N95.1 [facility] [address] [facility] [id number] [address] [place] [address] Aug, Bipolar 1 disorder, mixed F3 1.60 [facility] [address] [place] [id number] [address] [place] [address] Aug, [facility] [address] [place] [id number] [address] [place] [address] Aug, Bipolar 1 disorder, mixed F3 1.60 [facility] [address] [place] [id number] [address] [place] [address] Aug, Bipolar 1 disorder, mixed F3 1.60 [facility] [address] [place] [id number] [address] [place] [address] Aug, Hot flashes due to menopause N95.1 ; Cervicalgia M54.2 and Ataxia R27.0 [facility] [address] [place] [id number] [address] [place] [address] Jul, Bipolar 1 disorder, mixed F3 1.60 [facility] [address] [place] [id number] [address] [place] [address] Jul, Bipolar 1 disorder, mixed F3 1.60 [facility] [address] [place] [id number] [address] [place] [address] Jul, Bipolar 1 disorder, mixed F3 1.60 [facility] [address] [place] [id number] [address] [place] [address] Jul, Bipolar 1 disorder, mixed F3 1.60 [facility] [address] [address] Jul, Bipolar 1 disorder, mixed F3 1.60 [facility] [address] [place] [address] 08 Jul, 2016 Cervicalgia M54.2 ; Tremor R 25.1 ; Hearing abnormally acute, unspecified laterality H93.239 ; Alopecia L65.9 ; Encounter for immunization Z23 and Family history of thyroid disease Z83.49 [place] [address] [address] Jul, Bipolar 1 disorder, mixed F3 1.60 [place] [address] [address] [place] [address] Jun, [place] [address] Jun, Hearing disorder, unspecifie d laterality H93.299 [place] [address] [address] Jun, Bipolar 1 disorder, mixed F3 1.60 [place] [address] [address] Jun, Bipolar 1 disorder, mixed F3 1.60 [place] [address] [address] Jun, Allergic rhinitis J30.9 [facility] [address] [address] Jun, Bipolar 1 disorder, mixed F3 1.60 [place] [address] [address] [place] [address] Jun, Bipolar 1 disorder, mixed F3 1.60 [facility] [address] [address] Jun, Allergic rhinitis J30.9 [facility] [address] [place] [address] Jun, Allergic rhinitis J30.9 [facility] [address] [place] [id number] [address] [place] [address] Jun, Bipolar 1 disorder, mixed F3 1.60 [facility] [address] [place] [id number] [address] [place] [address] May, Bipolar 1 disorder, mixed F3 1.60 [facility] [address] [facility] [id number] [address] [place] [address] May, Bipolar 1 disorder, mixed F3 1.60 [facility] [address] [place] [id number] [address] [place] [address] May, [facility] [address] [place] [id number] [address] [place] [address] May, Bipolar 1 disorder, mixed F3 1.60 [facility] [address] [place] [id number] [address] [place] [address] May, Bipolar 1 disorder, mixed F3 1.60 [facility] [address] [place] [id number] [address] [place] [address] May, [facility] [address] [place] [id number] [address] [place] [address] May, [facility] [address] [place] [id number] [address] [place] [address] May, [facility] [address] [place] [id number] [address] [place] [address] May, Abdominal pain, unspecified location R10.9 [facility] [address] [place] [id number] [address] [place] [address] May, [facility] [address] [place] [id number] [address] [place] [address] Apr, Hematuria R31.9 ; Ataxia R27 .0 and Hearing loss, unspecified laterality H91.90 [facility] [address] [address] Apr, Bipolar 1 disorder, mixed F3 1.60 [facility] [address] [address] Apr, Acute effusion of both middl e ears H65.193 [facility] [address] [address] 10 Apr, 2016 Hematuria R31.9 and Pyelonep hritis N12 [facility] [address] [address] Apr, [place] [address] [address] Mar, Bipolar 1 disorder, mixed F3 1.60 [facility] [address] [address] Mar, [facility] [address] [address] Mar, Bipolar 1 disorder, mixed F3 1.60 [facility] [address] [address] Mar, Bipolar 1 disorder, mixed F3 1.60 [facility] [address] [address] Mar, Encounter for immunization Z 23 and Gastritis without bleeding, unspecified chronicity, unspecified gastritis type K29.70 [facility] [address] [address] 05 Mar, 2016 Bipolar 1 disorder, mixed F3 1.60 and Grief F43.20 [place] [address] [address] 05 Mar, 2016 Gastritis without bleeding, unspecified chronicity, unspecified gastritis type K29.70 [facility] [address] [address] Mar, Bipolar 1 disorder, mixed F3 1.60 [place] [id number] [facility] [id number] [address] [place] [id number] 05 Mar, 2016 Gastritis without bleeding, unspecified chronicity, unspecified gastritis type K29.70 [facility] [address] [facility] [id number] [address] [place] [address] Mar, [place] [address] [address] [place] [id number] [address] [place] [id number] Feb, Bipolar 1 disorder, mixed F3 1.60 [place] [address] [address] [place] [id number] [address] [place] [id number] Feb, Bipolar 1 disorder, mixed F3 1.60 and Grief F43.20 [place] [address] [address] [place] [id number] [address] [place] [id number] Feb, Gastritis without bleeding, unspecified chronicity, unspecified gastritis type K29.70 [place] [address] [address] [place] [id number] [address] [place] [id number] 14 Feb, 2016 Bipolar 1 disorder, mixed F3 1.60 [facility]ALK IN [facility] [address] [facility] [id number] [address] [place] [id number] 09 Feb, 2016 Gastroesophageal reflux dise ase, esophagitis presence not specified K21.9 [place] [address] [address] [place] [id number] [address] [place] [id number] Jan, Bipolar 1 disorder, mixed F3 1.60 [place] [address] [place] [id number] [address] [place] [address] Jan, Bipolar 1 disorder, mixed F3 1.60 and Unsteady gait R26.81 [place] [address] [facility] [id number] [address] [place] [id number] Jan, Bipolar 1 disorder, mixed F3 1.60 [facility] [address] [place] [id number] [address] [place] [id number] Jan, Bipolar 1 disorder, mixed F3 1.60 and Other longterm (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 Z79.899 [place] [address] [place] [id number] [address] [place] [address] Jan, Bipolar 1 disorder, mixed F3 1.60 [facility] [address] [facility] [id number] [address] [place] [id number] Jan, Bipolar 1 disorder, mixed F3 1.60 [facility] [address] [place] [id number] [address] [place] [address] Jan, Bipolar 1 disorder, mixed F3 1.60 ; Grief F43.20 and Other rn long term care (current) drug therapy Z79.899 [facility] [address] [facility] [id number] [address] [place] [address] Jan, Bipolar 1 disorder, mixed F3 1.60 [place] [address] [place] [id number] [address] [place] [address] Dec, [place] [address] [place] [id number] [address] [place] [id number] Dec, Bipolar 1 disorder, mixed F3 1.60 ; Vitamin D deficiency, unspecified E55.9 ; H/O allergic rhinitis Z87.09 ; Other chronic pain G89.29 and Dorsalgia, unspecified M54.9 [place] [address] [place] [id number] [address] [place] [address] Dec, [place] [address] [place] [id number] [address] [place] [id number] Dec, Bipolar 1 disorder, mixed F3 1.60 [facility] [address] [place] [id number] [address] [place] [address] Dec, Major depressive disorder, r ecurrent episode, moderate F33.1 [place] [address] [place] [id number] [address] [place] [address] Dec, Major depressive disorder, r ecurrent episode, moderate F33.1 [facility] [address] [place] [id number] [address] [place] [id number] Nov, [facility] [address] [address] Nov, Bipolar 1 disorder, mixed F3 1.60 [place] [address] [address] Nov, Major depressive disorder, r ecurrent episode, moderate F33.1 [place] [address] [address] Nov, Cervicalgia M54.2 ; Arthralg ia of hip, unspecified laterality M25.559 ; Allergic rhinitis J30.9 and Hormone replacement therapy Z79.890 [facility]ALK IN [facility] [address] [address] Nov, Other seasonal allergic rhin itis J30.2 [place] [address] [address] October, Major depressive disorder, r ecurrent episode, moderate F33.1 [place] [address] [address] October, Major depressive disorder, r ecurrent episode, moderate F33.1 and Arthralgia of hip, unspecified laterality M25.559 [place] [address] [address] October, Grief F43.20 ; Hypertension I10 ; Hyperlipidemia, unspecified hyperlipidemia type E78.5 ; Other chronic pain G89.29 and Allergic rhinitis, unspecified allergic rhinitis type J30.9 [place] [address] [address] October, Major depressive disorder, r ecurrent episode, moderate F33.1 [place] [address] [address] Sep, Major depressive disorder, r ecurrent episode, moderate F33.1 [place] [address] [address] Sep, [place] [address] [place] [id number] [address] [place] [address] Sep, Major depressive disorder, r ecurrent episode, moderate F33.1 [place] [address] [place] [id number] [address] [place] [address] Sep, Grief F43.20 [place] [address] [place] [id number] [address] [place] [address] Aug, Major depressive disorder, r ecurrent episode, moderate F33.1 [place] [address] [place] [id number] [address] [place] [address] Aug, Bipolar 1 disorder, mixed F3 1.60 [place] [address] [address] Aug, Allergic rhinitis J30.9 ; Ce rvicalgia M54.2 and Low back pain M54.5 [place] [id number] [place] [address] Aug, Major depressive disorder, r ecurrent episode, moderate F33.1 [facility] [address] [facility] [id number] [address] [place] [address] Aug, Sinusitis J32.9 and Tobacco 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 [place] [address] [facility] [id number] [address] [place] [address] Aug, [place] [address] [place] [address] Aug, Depressive disorder, not els ewhere classified F32.9 ; Hormone replacement therapy Z79.[address] scan, head R93.0 [place] [address] [address] [place] [id number] [address] [place] [address] Aug, Major depressive disorder, r ecurrent episode, moderate F33.1 [facility] [address] [facility] [id number] [address] [place] [address] Jul, Major depressive disorder, r ecurrent episode, moderate F33.1 [place] [address] [id number] [address] [place] [id number] 17 Jul, 2015 Abdominal pain R10.9 and Hyp ertension I10 [facility] [address] [id number] [address] [place] [address] 08 Jul, 2015 [facility] [address] [facility] [id number] [address] [place] [id number] Jul, Major depressive disorder, r ecurrent episode, moderate F33.1 [facility] [address] [id number] [address] [place] [id number] 04 Jul, 2015 [facility] [address] [id number] [address] [place] [id number] Jul, [facility] [address] [facility] [id number] [address] [place] [address] Jun, [facility] [address] [facility] [id number] [address] [place] [address] Jun, Depressive disorder, not els ewhere classified F32.9 [facility] [address] [id number] [address] [place] [id number] Jun, [facility] [address] [facility] [id number] [address] [place] [id number] Jun, [facility] [address] [facility] [id number] [address] [place] [address] Jun, Arthralgia of hip, unspecifi ed laterality M25.559 ; Bruising, spontaneous R23.3 and Night sweats R61 [facility] [address] [id number] [address] [place] [address] Jun, [facility] [address] [facility] [id number] [address] [place] [id number] Jun, [facility] [address] [facility] [id number] [address] [place] [address] May, [facility] [address] [facility] [id number] [address] [place] [id number] 15 May, 2015 Myalgia M79.1 and Screening, lipid Z13.220 [facility] [address] [place] [id number] [place] [address] Apr, Status post cervical spinal fusion Z98.1 ; Fibromyalgia M79.7 and Unsteady gait R26.81 [facility] [address] [place] [id number] [address] [place] [id number] Nov, [facility] [address] [facility] [id number] [address] [place] [id number] Nov, [facility] [address] [place] [id number] [address] [place] [id number] October, [facility] [address] [place] [id number] [address] [place] [phone] October, [facility] [address] [place] [id number] [address] [place] [address] October, [facility] [address] [place] [id number] [address] [place] [id number] October, [facility] [address] [place] [id number] [address] [place] [id number] October, [facility] [address] [place] [id number] [address] [place] [address] October, Dysuria 788.1 ; Nausea 787.0 2 and Urinary tract infection 599.0 [facility] [address] [facility] [id number] [address] [place] [address] Sep, [facility] [address] [facility] [id number] [address] [place] [phone] Sep, [facility] [address] [place] [id number] [address] [place] [phone] Aug, [facility] [address] [place] [id number] [address] [place] [id number] Aug, [facility] [address] [id number] [facility] [place] [address] 24 Aug, 2014 [facility] [address] [id number] [facility] [place] [address] 24 Aug, 2014 [facility] [address] [id number] [facility] [place] [address] 23 Aug, 2014 [facility] [address] [id number] [facility] [place] [address] 19 Aug, 2014 [facility] [address] [id number] [facility] [place] [address] 19 Aug, 2014 [facility] [address] [id number] [address] [place] [address], [place] [address] 19 Aug, 2014 [facility] [address] [id number] [address] [place] [address], [place] [address] 19 Aug, 2014 [facility] [address] [id number] [address] [place] [address], [place] [address] 18 Aug, 2014 [facility] [address] [id number] [address] [place] [address], [place] [address] 18 Aug, 2014 [facility] [address] [id number] [address] [place] [address], [place] [address] 13 Aug, 2014 [facility] [address] [id number] [address] [place] [address], [place] [address] 13 Aug, 2014 [facility] [address] [id number] [address] [place] [address], [place] [address] 11 Aug, 2014 [facility] [address] [id number] [address] [place] [address], [place] [address] 11 Aug, 2014 [facility] [address] [id number] [address] [place] [address], [place] [address] 06 Aug, 2014 [facility] [address] [id number] [address] [place] [address], [place] [address] 06 Aug, 2014 [facility] [address] [id number] [address] [place] [address], [place] [address] Aug, [facility] [address] [id number] [address] [place] [address], [place] [address] 05 Aug, 2014 [facility] [address] [id number] [address] [place] [address], [place] [address] Aug, [facility] [address] [id number] [address] [place] [address], [place] [address] Aug, [facility] [address] [id number] [address] [place] [address], [place] [address] Aug, [facility] [address] [id number] [address] [place] [address], [place] [address] Jul, [facility] [address] [id number] [address] [place] [address], [place] [address] Jul, 2014 [facility] [address] [id number] [address] [place] [address], [place] [address] Jul, 2014 [facility] [address] [id number] [address] [place] [address], [place] [address] Jul, 2014 [facility] [address] [id number] [address] [place] [address], [place] [address] Jul, 2014 [facility] [address] [id number] [address] [place] [address], [place] [address] Jul, [facility] [address] [id number] [address] [place] [address], [place] [address] Jul, 2014 [facility] [address] [id number] [address] [place] [address], [place] [address] Jul, 2014 [facility] [address] [id number] [address] [place] [address], [place] [address] Jul, 2014 [facility] [address] [id number] [address] [place] [address], [place] [address] Jul, 2014 [facility] [address] [id number] [address] [place] [address], [place] [address] 18 Jul2014 [facility] [address] [id number] [address] [place] [address], [place] [address] Jul, 2014 [facility] [address] [id number] [address] [place] [address], [place] [address] Jul, [facility] [address] [id number] [address] [place] [address], [place] [address] Jul, [facility] [address] [id number] [address] [place] [address], [place] [address] Jun, [facility] [address] [id number] [address] [place] [address], [place] [address] Jun, [facility] [address] [id number] [address] [place] [address], [place] [address] Jun, [facility] [address] [id number] [address] [place] [address], [place] [address] Jun, [facility] [address] [id number] [address] [place] [address], [place] [address] Jun, [facility] [address] [id number] [address] [place] [address], [place] [address] Jun, [facility] [address] [id number] [address] [place] [address], [place] [address] May, [facility] [address] [id number] [address] [place] [address], [place] [address] May, [facility] [address] [id number] [address] [place] [address], [place] [address] May, [facility] [address] [id number] [address] [place] [address], [place] [address] May, [facility] [address] [id number] [address] [place] [address], [place] [address] May, [facility] [address] [id number] [address] [place] [address], [place] [address] May, [facility] [address] [id number] [address] [place] [id number] Apr, [facility] [address] [id number] [address] [place] [address], [place] [address] Apr, [facility] [address] [id number] [address] [place] [address] Apr, [facility] [address] [id number] [address] [place] [address], [place] [address] Apr, [facility] [address] [id number] [address] [place] [address] Apr, [facility] [address] [id number] [address] [place] [address], [place] [address] Apr, [facility] [address] [id number] [address] [place] [address], [place] [address] Mar, [facility] [address] [id number] [address] [place] [address] Mar, [facility] [address] [id number] [address] [place] [id number] Mar, [facility] [address] [id number] [address] [place] [address] Mar, [facility] [address] [id number] [address] [place] [address] Mar, [facility] [address] [id number] [address] [place] [address] Mar, [facility] [address] [id number] [address] [place] [address] Mar, [facility] [address] [id number] [address] [place] [address] Mar, [facility] [address] [id number] [address] [place] [address] Mar, [facility] [address] [id number] [address] [place] [address] Mar, [facility] [address] [id number] [address] [place] [address], [place] [address] Mar, [facility] [address] [id number] [address] [place] [address], [place] [address] Mar, [facility] [address] [id number] [address] [place] [address], [place] [address] 30 Feb, 2013 [facility] [address] [id number] [address] [place] [address], [place] [address] Feb, 2013 [facility] [address] [id number] [address] [place] [address], [place] [address] Feb, 2013 [facility] [address] [id number] [address] [place] [address], [place] [address] Feb, [facility] [address] [id number] [address] [place] [address], [place] [address] Feb, 2013 [facility] [address] [id number] [address] [place] [address], [place] [address] Feb, [facility] [address] [id number] [address] [place] [address], [place] [address] Feb, [facility] [address] [id number] [address] [place] [address], [place] [address] Jan, [facility] [address] [id number] [address] [place] [address], [place] [address] Jan, [facility] [address] [id number] [address] [place] [address], [place] [address] Jan, [facility] [address] [id number] [address] [place] [address], [place] [address] Dec, [facility] [address] [id number] [address] [place] [address], [place] [address] Dec, [facility] [address] [id number] [address] [place] [address], [place] [address] Dec, [facility] [address] [id number] [address] [place] [address], [place] [address] Dec, [facility] [address] [id number] [facility] [place] [address] Sep, [facility] [address] [id number] [address] [place] [address], [place] [address] Sep, [facility] [address] [id number] [address] [place] [address], [place] [address] Sep, [facility] [address] [id number] [address] [place] [address], [place] [address] Sep, [facility] [address] [id number] [address] [place] [address], [place] [address] Sep, [facility] [address] [id number] [address] [place] [address], [place] [address] Sep, [facility] [address] [id number] [address] [place] [address], [place] [address] Sep, [facility] [address] [id number] [address] [place] [address], [place] [address] Sep, [facility] [address] [id number] [address] [place] [address], [place] [address] Aug, [facility] [address] [id number] [address] [place] [address], [place] [address] Aug, [facility] [address] [id number] [address] [place] [address], [place] [address] May, [facility] [address] [id number] [address] [place] [address], [place] [address] May, [facility] [address] [id number] [address] [place] [address], [place] [address] Apr, [facility] [address] [id number] [address] [place] [address], [place] [address] Apr, [facility] [address] [id number] [address] [place] [address], [place] [address] Apr, [facility] [address] [id number] [address] [place] [address], [place] [address] Apr, [facility] [address] [id number] [address] [place] [address], [place] [address] Apr, [facility] [address] [id number] [address] [place] [address], [place] [address] Apr, [facility] [address] [id number] [address] [place] [address], [place] [address] 18 May, 2012 [facility] [address] [id number] [address] [place] [address], [place] [address] 18 May, 2012 [facility] [address] [id number] [address] [place] [address], [place] [address] 15 May, 2012 [facility] [address] [id number] [address] [place] [address], [place] [address] 15 May, 2012 [facility] [address] [id number] [address] [place] [address], [place] [address] 13 May, 2012 [facility] [address] [id number] [address] [place] [address], [place] [address] 13 May, 2012 [facility] [address] [id number] [address] [place] [address], [place] [address] 13 Apr, 2012 [facility] [address] [id number] [address] [place] [address], [place] [address] 13 Apr, 2012 [facility] [address] [id number] [address] [place] [address], [place] [address] Apr, [facility] [address] [id number] [address] [place] [address], [place] [address] Apr, [facility] [address] [id number] [address] [place] [address], [place] [address] Apr, [facility] [address] [id number] [address] [place] [address], [place] [address] Apr, [facility] [address] [id number] [address] [place] [address], [place] [address] Apr, [facility] [address] [id number] [address] [place] [address], [place] [address] Apr, [facility] [address] [id number] [address] [place] [address], [place] [address] Apr, [facility] [address] [id number] [address] [place] [address], [place] [address] Apr, [facility] [address] [id number] [address] [place] [address], [place] [address] Mar, [facility] [address] [id number] [address] [place] [address], [place] [address] Mar, [facility] [address] [id number] [address] [place] [address], [place] [address] Mar, [facility] [address] [id number] [address] [place] [address], [place] [address] Mar, [facility] [address] [id number] [address] [place] [address], [place] [address] Mar, [facility] [address] [id number] [address] [place] [address], [place] [address] Mar, [facility] [address] [id number] [address] [place] [address], [place] [address] Mar, [facility] [address] [id number] [address] [place] [address], [place] [address] Mar, [facility] [address] [id number] [address] [place] [address], [place] [address] Mar, [facility] [address] [id number] [address] [place] [address], [place] [address] 25 Feb, 2012 [facility] [address] [id number] [address] [place] [address], [place] [address] 16 Sep2011 [facility] [address] [id number] [address] [place] [address] [address] 11 Sep2011 [facility] [address] [id number] [address] [place] [address], [place] [address] Jan, [facility] [address] [id number] [facility] [place] [address] Jan, [facility] [address] [id number] [address] [place] [address], [place] [id number] Jan, [facility] [address] [id number] [address] [place] [address], [place] [address] Jan, [facility] [address] [id number] [address] [place] [address], [place] [address] Jan, [facility] [address] [id number] [address] [place] [address], [place] [address] Jan, [facility] [address] [id number] [address] [place] [address], [place] [address] Jan, [facility] [address] [id number] [address] [place] [address], [place] [address] Jan, [facility] [address] [id number] [address] [place] [address], [place] [address] Jan, [facility] [address] [id number] [address] [place] [address], [place] [address] Jan, [facility] [address] [id number] [address] [place] [address], [place] [address] Dec, [facility] [address] [id number] [address] [place] [address], [place] [address] Dec, [facility] [address] [id number] [address] [place] [address], [place] [address] Dec, [facility] [address] [id number] [address] [place] [address], [place] [address] Dec, [facility] [address] [id number] [address] [place] [address], [place] [address] Nov, [facility] [address] [id number] [address] [place] [address], [place] [address] Nov, [facility] [address] [id number] [address] [place] [id number] Nov, [facility] [address] [id number] [address] [place] [id number] October, [facility] [address] [id number] [address] [place] [id number] October, [facility] [address] [id number] [address] [place] [id number] October, [facility] [address] [id number] [address] [place] [id number] October, [facility] [address] [id number] [address] [place] [id number] October, [facility] [address] [id number] [address] [place] [id number] October, [facility] [address] [id number] [address] [place] [id number] Aug, [facility] [address] [id number] [address] [place] [id number] Mar, [facility] [address] [id number] [address] [place] [id number] Nov, [facility] [address] [id number] [address] [place] [id number] May, [facility] [address] [id number] [address] [place] [id number] May, [facility] [address] [id number] [address] [place] [id number] Apr, [facility] [address] [id number] [address] [place] [id number] Mar, [facility] [address] [id number] [address] [place] [id number] Mar, IMMUNIZATIONS No Known Immunizations SOCIAL HISTORY Never Assessed REASON FOR VISIT Possible reaction to injection PLAN OF CARE VITAL SIGNS MEDICATIONS Unknown [...]
--- OUTSIDE RECORDS SUMMARY | 2019-06-19 05:48 | XMS REPORT ---
Author Author Sydnie MORTON Organization [facility] Address [address] [place] [address] Care Team Providers Care Automation Controls Specialist Name Role Phone JOHN MORTON Unavailable PROBLEMS Type Condition ICD9-CM Code KMX51-US Code Onset Dates Condition S tatus SNOMED Code Problem Hormone replacement therapy Z79.890 Ac tive 568785101 Problem Abnormal CT scan, head R93.0 Active 831514082 Problem Sensorineural hearing loss (SNHL) of both ears H90 .3 Active 951643548 Problem History of colon polyps Z86.010 Active 301484628 Problem Bruising, spontaneous R23.3 Active 349148984 Problem Generalized anxiety disorder F41.1 A ctive 32572797 Problem Arthralgia of hip, unspecified laterality M25.559 Active 07593528 Problem Hematuria, unspecified type R31.9 Ac tive 49234288 Problem Imbalance R26.89 Active 752517483 Problem Hammer toe of right foot M20.41 Activ e 387626968 Problem Plantar wart of right foot B07.0 Act mitchell [id number] Problem Sciatica of left side M54.32 Active 82416903 Problem Hyperlipidemia, unspecified hyperlipidemia type E7 8.5 Active 62563940 Problem Hypertension I10 Active 2567493 3 Problem Night sweats R61 Active 3524953 0 Problem Fibromyalgia M79.7 Active 5031989 7 Problem Major depressive disorder, recurrent episode, moderate F33.1 Active 949934845 Problem Acute left-sided low back pain with left-sided sciatica M54.42 Active 256866431 Problem Bladder spasm N32.89 Active 225280 006 Problem Gastritis without bleeding, unspecified chronicity, unspecified gastritis type K29.70 Active 737152338 Problem Bipolar 1 disorder, mixed F31.60 Acti ve 74715825 Problem Grief F43.20 Active 68381772 Problem Other chronic pain G89.29 Active 8 0709030 Problem Allergic rhinitis J30.9 Active 61 768695 Problem Hot flashes due to menopause N95.1 A ctive 911674906 Problem Ataxia R27.0 Active 08581367 Problem Hearing loss, unspecified laterality H91.90 Active [id number] ALLERGIES No Information ENCOUNTERS Encounter Location Date Diagnosis [facility] [address] [facility] [id number] [address] [place] [address] Dec, [facility] [address] [facility] [id number] [address] [place] [phone] Nov, [facility] [address] [place] [id number] [address] [place] [phone] October, [facility] [address] [place] [id number] [place] [address] October, [facility] [address] [place] [id number] [address] [place] [address] Sep, [facility] [address] [place] [id number] [address] [place] [address] Sep, Bipolar 1 disorder, mixed F3 1.60 [facility] [address] [place] [id number] [address] [place] [address] Sep, Allergic rhinitis J30.9 and Sciatica of left side M54.32 [facility] [address] [place] [id number] [address] [place] [phone] Sep, Bipolar 1 disorder, mixed F3 1.60 [facility] [address] [place] [id number] [address] [place] [address] Sep, Bipolar 1 disorder, mixed F3 1.60 and Generalized anxiety disorder F41.1 [facility] [address] [place] [id number] [address] [place] [phone] Aug, [facility] [address] [place] [id number] [address] [place] [phone] Aug, Bipolar 1 disorder, mixed F3 1.60 [facility] [address] [place] [id number] [address] [place] [phone] Aug, Bipolar 1 disorder, mixed F3 1.60 [facility] [address] [facility] [id number] [address] [place] [id number] Aug, [facility] [address] [facility] [id number] [address] [place] [id number] Aug, Generalized anxiety disorder F41.1 [facility] [address] [place] [id number] [address] [place] [id number] Aug, Bipolar 1 disorder, mixed F3 1.60 [facility] [address] [facility] [id number] [address] [place] [id number] Aug, Plantar wart of right foot B 07.0 [facility] [address] [facility] [id number] [address] [place] [phone] Aug, Bipolar 1 disorder, mixed F3 1.60 [facility] [address] [place] [id number] [address] [place] [id number] Jul, Bipolar 1 disorder, mixed F3 1.60 [facility] [address] [facility] [id number] [address] [place] [phone] Jul, [facility] [address] [facility] [id number] [address] [place] [phone] Jul, Bipolar 1 disorder, mixed F3 1.60 [facility] [address] [place] [id number] [address] [place] [id number] Jul, Generalized anxiety disorder F41.1 [facility] [address] [facility] [id number] [address] [place] [address] Jul, Bipolar 1 disorder, mixed F3 1.60 [facility] [address] [facility] [id number] [address] [place] [address] Jul, Acute left-sided low back pa in with left-sided sciatica M54.42 [facility] [address] [place] [id number] [address] [place] [id number] 05 Feb, 2018 Coccydynia M53.3 [facility] [address] [place] [id number] Jun, Bipolar 1 disorder, mixed F3 1.60 [facility] [address] [place] [id number] [place] [address] Jun, Acute nasopharyngitis J00 [place] [address] [address] Jun, Bipolar 1 disorder, mixed F3 1.60 [place] [address] [address] Jun, Fibromyalgia M79.7 [place] [address] [address] Jun, Bipolar 1 disorder, mixed F3 1.60 [place] [address] [address] Jun, Fibromyalgia M79.7 and Bipol ar 1 disorder, mixed F31.60 [place] [address] [address] May, Bipolar 1 disorder, mixed F3 1.60 ; Generalized anxiety disorder F41.1 and 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 [place] [address] [address] May, Bipolar 1 disorder, mixed F3 1.60 [facility] [address] [address] 14 May, 2017 Cough R05 and Body aches R52 [facility] [address] [place] [id number] [place] [phone] 10 May, 2017 Bladder spasm N32.89 and Acu te cystitis without hematuria N30.00 [place] [address] [place] [id number] [address] [place] [phone] 07 May, 2017 Bipolar 1 disorder, mixed F3 1.60 [place] [address] [place] [id number] [address] [place] [address] Apr, [facility] [address] [address] Apr, Major depressive disorder, r ecurrent episode, moderate F33.1 and Encounter for immunization Z23 [facility] [address] [address] Apr, Bipolar 1 disorder, mixed F3 1.60 [facility] [address] [address] Apr, Bipolar 1 disorder, mixed F3 1.60 [place] [address] [address] Apr, Bipolar 1 disorder, mixed F3 1.60 [place] [address] [address] Apr, Yeast vaginitis B37.3 [facility] [address] [address] Apr, Bipolar 1 disorder, mixed F3 1.60 [facility] [address] [address] Apr, Encounter for immunization Z 23 and Cellulitis L03.90 [facility] [address] [address] Apr, Bipolar 1 disorder, mixed F3 1.60 [facility] [address] [address] Mar, Bipolar 1 disorder, mixed F3 1.60 [place] [address] [address] Mar, Bipolar 1 disorder, mixed F3 1.60 [facility] [address] [address] Mar, Imbalance R26.89 and Encount er for immunization Z23 [facility] [address] [place] [address] Mar, Generalized anxiety disorder F41.1 [place] [address] [place] [id number] [address] [place] [address] Mar, Bipolar 1 disorder, mixed F3 1.60 [place] [address] [place] [id number] [address] [place] [address] Mar, Generalized anxiety disorder F41.1 [place] [address] [place] [id number] [address] [place] [address] Mar, Bipolar 1 disorder, mixed F3 1.60 [place] [address] [place] [address] Mar, Bipolar 1 disorder, mixed F3 1.60 [place] [address] [address] Feb, Bipolar 1 disorder, mixed F3 1.60 [place] [address] [address] Feb, Bipolar 1 disorder, mixed F3 1.60 and Generalized anxiety disorder F41.1 [place] [address] [place] [address] Feb, Gastritis without bleeding, unspecified chronicity, unspecified gastritis type K29.70 ; Hammer toe of right foot M20.41 and Other viral warts B07.8 [place] [address] [place] [id number] [address] [place] [address] Feb, Bipolar 1 disorder, mixed F3 1.60 [place] [address] [place] [id number] [address] [place] [address] 13 Feb, 2017 Bipolar 1 disorder, mixed F3 1.60 [place] [address] [place] [id number] [address] [place] [address] 05 Feb, 2017 Bipolar 1 disorder, mixed F3 1.60 [place] [address] [place] [address] Jan, Encounter for screening mamm ogram for breast cancer Z12.31 ; Other viral warts B07.8 and Allergic rhinitis J30.9 [facility] [address] [facility] [id number] [address] [place] [address] Jan, Bipolar 1 disorder, mixed F3 1.60 [facility] [address] [facility] [id number] [address] [place] [address] Jan, Bipolar 1 disorder, mixed F3 1.60 [facility] [address] [facility] [id number] [address] [place] [address] Jan, [place] [address] [place] [id number] [address] [place] [address] Jan, Bipolar 1 disorder, mixed F3 1.60 [place] [address] [place] [id number] [address] [place] [address] Jan, Bipolar 1 disorder, mixed F3 1.60 [place] [address] [place] [id number] [address] [place] [address] Jan, Allergic rhinitis J30.9 ; He maturia R31.9 and Colon cancer screening Z12.11 [place] [address] [place] [id number] [address] [place] [address] Dec, Bipolar 1 disorder, mixed F3 1.60 [place] [address] [place] [id number] [address] [place] [address] Dec, Bipolar 1 disorder, mixed F3 1.60 ; Generalized anxiety disorder F41.1 and Other longterm (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 Z79.899 [place] [address] [facility] [id number] [address] [place] [address] Dec, Bipolar 1 disorder, mixed F3 1.60 [place] [address] [place] [id number] [address] [place] [address] Dec, Bipolar 1 disorder, mixed F3 1.60 [place] [address] [place] [id number] [address] [place] [address] Dec, Bipolar 1 disorder, mixed F3 1.60 [facility] [address] [id number] [address] [place] [address] Dec, Low back pain M54.5 and Recu rrent urinary tract infection N39.0 [facility] [address] [id number] [address] [place] [address] Nov, Bipolar 1 disorder, mixed F3 1.60 [facility] [address] [id number] [address] [place] [phone] Nov, Bipolar 1 disorder, mixed F3 1.60 [facility] [address] [id number] [address] [place] [address] Nov, Bipolar 1 disorder, mixed F3 1.60 [facility] [address] [facility] [id number] [address] [place] [address] Nov, Bipolar 1 disorder, mixed F3 1.60 [facility] [address] [facility] [id number] [address] [place] [address] Nov, [facility] [address] [facility] [id number] [address] [place] [address] Nov, Anesthesia of skin R20.0 ; F requent UTI N39.0 ; Tobacco abuse Z72.0 and Colon cancer screening Z12.11 [facility] [address] [facility] [id number] [address] [place] [address] Nov, Bipolar 1 disorder, mixed F3 1.60 [facility] [address] [id number] [address] [place] [address] October, Bipolar 1 disorder, mixed F3 1.60 [facility] [address] [facility] [id number] [address] [place] [address] October, Bipolar 1 disorder, mixed F3 1.60 [facility] [address] [facility] [id number] [address] [place] [address] October, Bipolar 1 disorder, mixed F3 1.60 [facility] [address] [address] October, Bipolar 1 disorder, mixed F3 1.60 [facility] [address] [address] October, Bipolar 1 disorder, mixed F3 1.60 [facility] [address] [address] October, Cervicalgia M54.2 and Bipola r 1 disorder, mixed F31.60 [facility] [address] [address] October, Hypertension I10 ; Hyperlipi demia, unspecified hyperlipidemia type E78.5 and Family history of thyroid disease Z83.49 [place] [address] [address] October, [place] [address] [address] October, Hypertension I10 ; Hyperlipi demia, unspecified hyperlipidemia type E78.5 and Family history of thyroid problem Z83.49 [place] [address] [address] October, Bipolar 1 disorder, mixed F3 1.60 [place] [address] [address] Sep, Bipolar 1 disorder, mixed F3 1.60 [place] [address] [address] Sep, Bipolar 1 disorder, mixed F3 1.60 [place] [address] [address] Sep, Bipolar 1 disorder, mixed F3 1.60 [facility] [address] [address] Sep, History of colon polyps Z86. 010 and Hematochezia K92.1 [facility] [address] [place] [address] Sep, Major depressive disorder, r ecurrent episode, moderate F33.1 [facility] [address] [place] [id number] [address] [place] [address] Sep, Bipolar 1 disorder, mixed F3 1.60 [facility] [address] [place] [id number] [address] [place] [address] Aug, Hot flashes due to menopause N95.1 [facility] [address] [place] [id number] [place] [address] Aug, Bipolar 1 disorder, mixed F3 1.60 [facility] [address] [place] [id number] [place] [address] Aug, [facility] [address] [place] [id number] [place] [address] Aug, Bipolar 1 disorder, mixed F3 1.60 [facility] [address] [address] Aug, Bipolar 1 disorder, mixed F3 1.60 [facility] [address] [place] [id number] [place] [address] Aug, Hot flashes due to menopause N95.1 ; Cervicalgia M54.2 and Ataxia R27.0 [facility] [address] [place] [id number] [place] [address] Jul, Bipolar 1 disorder, mixed F3 1.60 [facility] [address] [place] [id number] [address] [place] [address] Jul, Bipolar 1 disorder, mixed F3 1.60 [facility] [address] [place] [id number] [place], [place] [address] Jul, Bipolar 1 disorder, mixed F3 1.60 [facility] [address] [place] [id number] [address] [place] [address] Jul, Bipolar 1 disorder, mixed F3 1.60 [facility] [address] [address] 10 Jul, 2016 Bipolar 1 disorder, mixed F3 1.60 [place] [address] [place] [address] 08 Jul, 2016 Cervicalgia M54.2 ; Tremor R 25.1 ; Hearing abnormally acute, unspecified laterality H93.239 ; Alopecia L65.9 ; Encounter for immunization Z23 and Family history of thyroid disease Z83.49 [place] [address] [place] [address] 06 Jul, 2016 Bipolar 1 disorder, mixed F3 1.60 [place] [address] [place] [address] Jun, [place] [address] Jun, Hearing disorder, unspecifie d laterality H93.299 [place] [address] [place] [address] Jun, Bipolar 1 disorder, mixed F3 1.60 [place] [address] [place] [address] Jun, Bipolar 1 disorder, mixed F3 1.60 [place] [address] [address] Jun, Allergic rhinitis J30.9 [place] [address] [address] Jun, Bipolar 1 disorder, mixed F3 1.60 [place] [address] [address] Jun, Bipolar 1 disorder, mixed F3 1.60 [place] [address] [address] Jun, Allergic rhinitis J30.9 [place] [address] [address] Jun, Allergic rhinitis J30.9 [facility] [address] [facility] [id number] [address] [place] [address] Jun, Bipolar 1 disorder, mixed F3 1.60 [facility] [address] [facility] [id number] [address] [place] [address] May, Bipolar 1 disorder, mixed F3 1.60 [facility] [address] [facility] [id number] [address] [place] [address] May, Bipolar 1 disorder, mixed F3 1.60 [facility] [address] [facility] [id number] [address] [place] [address] May, [facility] [address] [facility] [id number] [address] [place] [address] May, Bipolar 1 disorder, mixed F3 1.60 [facility] [address] [facility] [id number] [address] [place] [address] May, Bipolar 1 disorder, mixed F3 1.60 [facility] [address] [facility] [id number] [address] [place] [address] May, [facility] [address] [facility] [id number] [address] [place] [address] May, [facility] [address] [facility] [id number] [address] [place] [address] May, [facility] [address] [facility] [id number] [address] [place] [address] May, Abdominal pain, unspecified location R10.9 [facility] [address] [place] [id number] [address] [place] [address] May, [facility] [address] [facility] [id number] [address] [place], [place] [address] Apr, Hematuria R31.9 ; Ataxia R27 .0 and Hearing loss, unspecified laterality H91.90 [facility] [address] [facility] [id number] [address] [place] [address] Apr, Bipolar 1 disorder, mixed F3 1.[address] [facility] [address] [place] [id number] [address] [place] [address] Apr, Acute effusion of both middl e ears H65.193 [facility] [address] [place] [id number] [place] [address] 10 Apr, 2016 Hematuria R31.9 and Pyelonep hritis N12 [facility] [address] [place] [id number] [address] [place] [address] Apr, [facility] [address] [address] Mar, Bipolar 1 disorder, mixed F3 1.60 [facility] [address] [address] Mar, [facility] [address] [address] Mar, Bipolar 1 disorder, mixed F3 1.60 [facility] [address] [place] [address] Mar, Bipolar 1 disorder, mixed F3 1.60 [facility] [address] [address] Mar, Encounter for immunization Z 23 and Gastritis without bleeding, unspecified chronicity, unspecified gastritis type K29.70 [facility] [address] [place] [id number] [address] [place] [address] Mar, Bipolar 1 disorder, mixed F3 1.60 and Grief F43.20 [facility] [address] [place] [id number] [place] [address] Mar, Gastritis without bleeding, unspecified chronicity, unspecified gastritis type K29.70 [facility] [address] [place] [id number] [address] [place] [address] Mar, Bipolar 1 disorder, mixed F3 1.60 [facility] [address] [place] [id number] [address] [place] [address] Mar, Gastritis without bleeding, unspecified chronicity, unspecified gastritis type K29.70 [facility] [address] [facility] [id number] [address] [place] [address] Mar, [facility] [address] [facility] [id number] [address] [place] [address] Feb, Bipolar 1 disorder, mixed F3 1.60 [place] [address] [place] [id number] [address] [place] [address] Feb, Bipolar 1 disorder, mixed F3 1.60 and Grief F43.20 [place] [address] [facility] [id number] [address] [place] [id number] Feb, Gastritis without bleeding, unspecified chronicity, unspecified gastritis type K29.70 [place] [address] [facility] [id number] [address] [place] [address] 14 Feb, 2016 Bipolar 1 disorder, mixed F3 1.60 [facility] [address] [facility] [id number] [address] [place] [id number] 09 Feb, 2016 Gastroesophageal reflux dise ase, esophagitis presence not specified K21.9 [place] [address] [address] [facility] [id number] [address] [place], [place] [id number] Jan, Bipolar 1 disorder, mixed F3 1.60 [place] [address] [address] [place] [id number] [address] [place] [id number] Jan, Bipolar 1 disorder, mixed F3 1.60 and Unsteady gait R26.81 [place] [address] [address] [facility] [id number] [address] [place] [phone] Jan, Bipolar 1 disorder, mixed F3 1.60 [place] [address] [address] [place] [id number] [address] [place], [place] [id number] Jan, Bipolar 1 disorder, mixed F3 1.60 and Other longterm (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 Z79.899 [place] [address] [address] [place] [id number] [address] [place], [place] [id number] Jan, Bipolar 1 disorder, mixed F3 1.60 [facility] [address] [facility] [id number] [address] [place] [id number] Jan, Bipolar 1 disorder, mixed F3 1.60 [facility] [address] [facility] [id number] [address] [place] [id number] Jan, Bipolar 1 disorder, mixed F3 1.60 ; Grief F43.20 and Other longterm (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 Z79.899 [facility] [address] [facility] [id number] [address] [place] [phone] Jan, Bipolar 1 disorder, mixed F3 1.60 [facility] [address] [place] [id number] [address] [place] [id number] Dec, [place] [address] [address] [place] [id number] [address] [place] [phone] Dec, Bipolar 1 disorder, mixed F3 1.60 ; Vitamin D deficiency, unspecified E55.9 ; H/O allergic rhinitis Z87.09 ; Other chronic pain G89.29 and Dorsalgia, unspecified M54.9 [place] [address] [address] [facility] [id number] [address] [place] [phone] Dec, [place] [address] [address] [facility] [id number] [address] [place] [id number] Dec, Bipolar 1 disorder, mixed F3 1.60 [facility] [address] [facility] [id number] [address] [place] [phone] Dec, Major depressive disorder, r ecurrent episode, moderate F33.1 [facility] [address] [facility] [id number] [address] [place] [id number] Dec, Major depressive disorder, r ecurrent episode, moderate F33.1 [place] [address] [facility] [id number] [address] [place] [phone] Nov, [place] [address] [address] [place] [id number] [address] [place] [id number] Nov, Bipolar 1 disorder, mixed F3 1.60 [facility] [address] [facility] [id number] [address] [place] [id number] Nov, Major depressive disorder, r ecurrent episode, moderate F33.1 [facility] [address] [facility] [id number] [address] [place] [phone] Nov, Cervicalgia M54.2 ; Arthralg ia of hip, unspecified laterality M25.559 ; Allergic rhinitis J30.9 and Hormone replacement therapy Z79.890 [facility] [address] [facility] [id number] [address] [place] [id number] 13 Nov, 2015 Other seasonal allergic rhin itis J30.2 [place] [address] [address] [place] [id number] [address] [place] [phone] October, Major depressive disorder, r ecurrent episode, moderate F33.1 [place] [address] [address] October, Major depressive disorder, r ecurrent episode, moderate F33.1 and Arthralgia of hip, unspecified laterality M25.559 [place] [address] [address] October, Grief F43.20 ; Hypertension I10 ; Hyperlipidemia, unspecified hyperlipidemia type E78.5 ; Other chronic pain G89.29 and Allergic rhinitis, unspecified allergic rhinitis type J30.9 [place] [address] [address] [place] [id number] [address] [place] [id number] October, Major depressive disorder, r ecurrent episode, moderate F33.1 [place] [address] [address] [place] [id number] [address] [place] [phone] Sep, Major depressive disorder, r ecurrent episode, moderate F33.1 [place] [address] [address] [place] [id number] [address] [place] [phone] Sep, [place] [address] [address] Sep, Major depressive disorder, r ecurrent episode, moderate F33.1 [facility] [address] [facility] [id number] [address] [place] [phone] Sep, Grief F43.20 [place] [address] [facility] [id number] [address] [place] [phone] Aug, Major depressive disorder, r ecurrent episode, moderate F33.1 [place] [address] [facility] [id number] [address] [place] [address] Aug, Bipolar 1 disorder, mixed F3 1.60 [place] [address] [facility] [id number] [address] [place] [phone] Aug, Allergic rhinitis J30.9 ; Ce rvicalgia M54.2 and Low back pain M54.5 [place] [address] [facility] [id number] [address] [place] [phone] Aug, Major depressive disorder, r ecurrent episode, moderate F33.1 [facility] [address] [facility] [id number] [address] [place] [address] Aug, Sinusitis J32.9 and Tobacco 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 [facility] [address] [facility] [id number] [address] [place] [phone] Aug, [facility] [address] [facility] [id number] [address] [place] [address] Aug, Depressive disorder, not els ewhere classified F32.9 ; Hormone replacement therapy Z79.[address] scan, head R93.0 [place] [address] [facility] [id number] [address] [place] [id number] Aug, Major depressive disorder, r ecurrent episode, moderate F33.1 [facility] [address] [facility] [id number] [address] [place] [phone] Jul, Major depressive disorder, r ecurrent episode, moderate F33.1 [facility] [address] [facility] [id number] [address] [place] [id number] 17 Jul, 2015 Abdominal pain R10.9 and Hyp ertension I10 [facility] [address] [facility] [id number] [address] [place] [phone] Jul, [facility] [address] [facility] [id number] [address] [place] [id number] Jul, Major depressive disorder, r ecurrent episode, moderate F33.1 [facility] [address] [id number] [address] [place] [address] Jul, [facility] [address] [id number] [address] [place] [id number] Jul, [facility] [address] [facility] [id number] [address] [place] [phone] Jun, [facility] [address] [facility] [id number] [address] [place] [phone] Jun, Depressive disorder, not els ewhere classified F32.9 [facility] [address] [facility] [id number] [address] [place] [phone] Jun, [facility] [address] [facility] [id number] [address] [place] [id number] Jun, [facility] [address] [facility] [id number] [address] [place] [address] Jun, Arthralgia of hip, unspecifi ed laterality M25.559 ; Bruising, spontaneous R23.3 and Night sweats R61 [facility] [address] [facility] [id number] [address] [place] [id number] Jun, [facility] [address] [facility] [id number] [address] [place] [address] Jun, [facility] [address] [facility] [id number] [address] [place] [address] May, [facility] [address] [facility] [id number] [address] [place] [id number] May, Myalgia M79.1 and Screening, lipid Z13.220 [facility] [address] [id number] [address] [place] [id number] Apr, Status post cervical spinal fusion Z98.1 ; Fibromyalgia M79.7 and Unsteady gait R26.81 [facility] [address] [id number] [address] [place] [address] Nov, [facility] [address] [id number] [address] [place] [phone] Nov, [facility] [address] [id number] [address] [place] [phone] October, [facility] [address] [id number] [address] [place] [phone] October, [facility] [address] [id number] [address] [place] [phone] October, [facility] [address] [id number] [address] [place] [address] October, [facility] [address] [id number] [address] [place] [address] October, [facility] [address] [facility] [id number] [address] [place] [address] October, Dysuria 788.1 ; Nausea 787.0 2 and Urinary tract infection 599.0 [facility] [address] [id number] [address] [place] [id number] Sep, [facility] [address] [id number] [address] [place] [phone] Sep, [facility] [address] [id number] [address] [place] [id number] Aug, [facility] [address] [id number] [address] [place] [phone] Aug, [facility] [address] [id number] [address] [place] [id number] 24 Aug, 2014 [facility] [address] [id number] [address] [place] [address], [place] [address] 24 Aug, 2014 [facility] [address] [id number] [address] [place] [address], [place] [address] 23 Aug, 2014 [facility] [address] [id number] [address] [place] [address], [place] [address] 19 Aug, 2014 [facility] [address] [id number] [address] [place] [address], [place] [address] 19 Aug, 2014 [facility] [address] [id number] [address] [place] [address], [place] [address] 19 Aug, 2014 [facility] [address] [id number] [address] [place] [address], [place] [address] 19 Aug, 2014 [facility] [address] [id number] [address] [place] [address], [place] [address] 18 Aug, 2014 [facility] [address] [id number] [address] [place] [address], [place] [address] 18 Aug, 2014 [facility] [address] [id number] [address] [place] [address], [place] [address] 13 Aug, 2014 [facility] [address] [id number] [address] [place] [address], [place] [address] 13 Aug, 2014 [facility] [address] [id number] [address] [place] [address], [place] [address] 11 Aug, 2014 [facility] [address] [id number] [address] [place] [address], [place] [address] 11 Aug, 2014 [facility] [address] [id number] [address] [place] [address], [place] [address] 06 Aug, 2014 [facility] [address] [id number] [address] [place] [address], [place] [address] 06 Aug, 2014 [facility] [address] [id number] [address] [place] [address], [place] [address] 05 Aug, 2014 [facility] [address] [id number] [address] [place] [address], [place] [address] 05 Aug, 2014 [facility] [address] [id number] [address] [place] [address], [place] [address] Aug, [facility] [address] [id number] [address] [place] [address], [place] [address] Aug, [facility] [address] [id number] [address] [place] [address], [place] [address] Aug, [facility] [address] [id number] [address] [place] [address], [place] [address] Jul, 2014 [facility] [address] [id number] [address] [place] [address], [place] [address] Jul, 2014 [facility] [address] [id number] [address] [place] [address], [place] [address] Jul, 2014 [facility] [address] [id number] [address] [place] [address], [place] [address] Jul, 2014 [facility] [address] [id number] [address] [place] [address], [place] [address] Jul, [facility] [address] [id number] [address] [place] [address], [place] [address] Jul, [facility] [address] [id number] [address] [place] [address], [place] [address] Jul, 2014 [facility] [address] [id number] [address] [place] [address], [place] [address] Jul, 2014 [facility] [address] [id number] [address] [place] [address], [place] [address] Jul, [facility] [address] [id number] [address] [place] [address], [place] [address] Jul, 2014 [facility] [address] [id number] [address] [place] [address], [place] [address] 18 Jul, 2014 [facility] [address] [id number] [address] [place] [id number] Jul, [facility] [address] [id number] [address] [place] [address], [place] [address] Jul, [facility] [address] [id number] [address] [place] [address], [place] [address] Jul, [facility] [address] [id number] [address] [place] [address], [place] [address] Jun, [facility] [address] [id number] [address] [place] [address], [place] [address] Jun, [facility] [address] [id number] [address] [place] [address], [place] [address] Jun, [facility] [address] [id number] [address] [place] [address], [place] [address] Jun, [facility] [address] [id number] [address] [place] [address], [place] [address] Jun, [facility] [address] [id number] [address] [place] [address], [place] [address] Jun, [facility] [address] [id number] [address] [place] [address], [place] [address] May, [facility] [address] [id number] [address] [place] [address], [place] [address] May, [facility] [address] [id number] [address] [place] [address], [place] [address] May, [facility] [address] [id number] [address] [place] [address], [place] [address] May, [facility] [address] [id number] [address] [place] [address], [place] [address] May, [facility] [address] [id number] [address] [place] [address], [place] [address] May, [facility] [address] [id number] [address] [place] [address], [place] [address] Apr, [facility] [address] [id number] [address] [place] [address], [place] [address] Apr, [facility] [address] [id number] [address] [place] [address], [place] [address] Apr, [facility] [address] [id number] [address] [place] [address], [place] [address] Apr, [facility] [address] [id number] [address] [place] [address], [place] [address] Apr, [facility] [address] [id number] [address] [place] [address], [place] [address] Apr, [facility] [address] [id number] [address] [place] [address], [place] [address] Mar, [facility] [address] [id number] [address] [place] [address], [place] [address] Mar, [facility] [address] [id number] [address] [place] [address], [place] [address] Mar, [facility] [address] [id number] [address] [place] [address], [place] [address] Mar, [facility] [address] [id number] [address] [place] [address], [place] [address] Mar, [facility] [address] [id number] [address] [place] [address], [place] [address] Mar, [facility] [address] [id number] [address] [place] [address], [place] [address] Mar, [facility] [address] [id number] [address] [place] [address], [place] [address] Mar, [facility] [address] [id number] [address] [place] [address], [place] [address] Mar, [facility] [address] [id number] [address] [place] [id number] Mar, [facility] [address] [id number] [address] [place] [address], [place] [address] Mar, [facility] [address] [id number] [address] [place] [address], [place] [address] Mar, [facility] [address] [id number] [address] [place] [address], [place] [address] 30 Feb, 2014 [facility] [address] [id number] [address] [place] [address], [place] [address] Feb, [facility] [address] [id number] [address] [place] [address], [place] [address] Feb, [facility] [address] [id number] [address] [place] [address], [place] [address] Feb, [facility] [address] [id number] [address] [place] [address], [place] [address] Feb, [facility] [address] [id number] [address] [place] [address], [place] [address] Feb, [facility] [address] [id number] [address] [place] [address], [place] [address] Feb, [facility] [address] [id number] [address] [place] [address], [place] [address] Jan, [facility] [address] [id number] [address] [place] [address], [place] [address] Jan, [facility] [address] [id number] [address] [place] [address], [place] [address] Jan, [facility] [address] [id number] [address] [place] [address], [place] [address] Dec, [facility] [address] [id number] [address] [place] [address], [place] [address] Dec, [facility] [address] [id number] [address] [place] [address], [place] [address] Dec, [facility] [address] [id number] [address] [place] [address], [place] [address] Dec, [facility] [address] [id number] [address] [place] [address], [place] [address] Sep, [facility] [address] [id number] [address] [place] [address], [place] [address] Sep, [facility] [address] [id number] [address] [place] [address], [place] [address] Sep, [facility] [address] [id number] [address] [place] [address], [place] [address] Sep, [facility] [address] [id number] [address] [place] [address], [place] [address] Sep, [facility] [address] [id number] [address] [place] [address], [place] [address] Sep, [facility] [address] [id number] [address] [place] [address], [place] [address] Sep, [facility] [address] [id number] [address] [place] [address], [place] [address] Sep, [facility] [address] [id number] [address] [place] [address], [place] [address] Aug, [facility] [address] [id number] [address] [place] [address], [place] [address] Aug, [facility] [address] [id number] [address] [place] [address], [place] [address] May, [facility] [address] [id number] [address] [place] [address], [place] [address] May, [facility] [address] [id number] [address] [place] [address], [place] [address] Apr, [facility] [address] [id number] [address] [place] [address], [place] [address] Apr, [facility] [address] [id number] [address] [place] [address], [place] [address] Apr, [facility] [address] [id number] [address] [place] [address], [place] [address] Apr, [facility] [address] [id number] [address] [place] [address], [place] [address] Apr, [facility] [address] [id number] [address] [place] [address], [place] [address] Apr, [facility] [address] [id number] [address] [place] [address], [place] [address] May, [facility] [address] [id number] [address] [place] [address], [place] [id number] 18 May, 2012 [facility] [address] [id number] [address] [place] [address], [place] [id number] 15 May, 2012 [facility] [address] [id number] [address] [place] [address], [place] [address] May, [facility] [address] [id number] [address] [place] [address], [place] [address] May, [facility] [address] [id number] [address] [place] [address], [place] [address] May, [facility] [address] [id number] [address] [place] [address], [place] [address] Apr, [facility] [address] [id number] [address] [place] [address], [place] [address] Apr, [facility] [address] [id number] [address] [place] [address], [place] [address] Apr, [facility] [address] [id number] [address] [place] [address], [place] [address] Apr, [facility] [address] [id number] [address] [place] [address], [place] [address] Apr, [facility] [address] [id number] [address] [place] [address], [place] [address] Apr, [facility] [address] [id number] [address] [place] [address], [place] [address] Apr, [facility] [address] [id number] [address] [place] [id number] Apr, [facility] [address] [id number] [address] [place] [address], [place] [address] Apr, [facility] [address] [id number] [address] [place] [id number] Apr, [facility] [address] [id number] [address] [place] [address], [place] [address] Mar, [facility] [address] [id number] [address] [place] [id number] Mar, [facility] [address] [id number] [address] [place] [address], [place] [address] Mar, [facility] [address] [id number] [address] [place] [address], [place] [id number] Mar, [facility] [address] [id number] [address] [place] [address], [place] [address] Mar, [facility] [address] [id number] [address] [place] [address], [place] [address] Mar, [facility] [address] [id number] [address] [place] [id number] Mar, [facility] [address] [id number] [address] [place] [address], [place] [address] Mar, [facility] [address] [id number] [address] [place] [id number] Mar, [facility] [address] [id number] [address] [place] [id number] 25 Feb, 2012 [facility] [address] [id number] [address] [place] [address], [place] [id number] 16 Feb, 2012 [facility] [address] [id number] [address] [place] [address], [place] [address] 11 Feb, 2012 [facility] [address] [id number] [address] [place] [address], [place] [address] Jan, [facility] [address] [id number] [address] [place] [address], [place] [address] Jan, [facility] [address] [id number] [address] [place] [address], [place] [address] Jan, [facility] [address] [id number] [address] [place] [address], [place] [id number] 18 Jan, 2012 [facility] [address] [id number] [address] [place] [address], [place] [id number] Jan, [facility] [address] [id number] [address] [place] [address], [place] [address] Jan, [facility] [address] [id number] [address] [place] [address], [place] [id number] 16 Jan, 2012 [facility] [address] [id number] [address] [place] [address], [place] [address] Jan, [facility] [address] [id number] [address] [place] [address], [place] [id number] Jan, [facility] [address] [id number] [address] [place] [address], [place] [address] Jan, [facility] [address] [id number] [address] [place] [address], [place] [address] Dec, [facility] [address] [id number] [address] [place] [address], [place] [id number] Dec, [facility] [address] [id number] [address] [place] [address], [place] [id number] Dec, [facility] [address] [id number] [address] [place] [address], [place] [id number] Dec, [facility] [address] [id number] [address] [place] [address], [place] [id number] Nov, [facility] [address] [id number] [address] [place] [address], [place] [id number] 08 Nov, 2011 [facility] [address] [id number] [address] [place] [address], [place] [id number] Nov, [facility] [address] [id number] [address] [place] [id number] October, [facility] [address] [id number] [address] [place] [phone] October, [facility] [address] [id number] [address] [place] [id number] October, [facility] [address] [id number] [address] [place] [phone] October, [facility] [address] [id number] [address] [place] [phone] October, [facility] [address] [id number] [address] [place] [id number] October, [facility] [address] [id number] [address] [place] [phone] Aug, [facility] [address] [id number] [address] [place] [id number] Mar, [facility] [address] [id number] [address] [place] [phone] Nov, [facility] [address] [id number] [address] [place] [phone] May, [facility] [address] [id number] [address] [place] [phone] May, [facility] [address] [id number] [address] [place] [phone] Apr, [facility] [address] [id number] [address] [place] [id number] Mar, [facility] [address] [id number] [address] [place] [id number] Mar, IMMUNIZATIONS No Known Immunizations SOCIAL HISTORY Never Assessed REASON FOR VISIT BH f/u PLAN OF CARE Activity Details Follow Up 1 Week Reason:BH F/U VITAL SIGNS MEDICATIONS Unknown Medications RESULTS No Results PROCEDURES Procedure Date Ordered Result Body Site [facility] VISIT [facility] PT Feb 20, 2017 Psychotherapy, patient &/family, 45 minutes, established pat ient Feb 20, 2017 INSTRUCTIONS MEDICATIONS ADMINISTERED No Known [...]
--- OUTSIDE RECORDS SUMMARY | 2019-06-19 05:48 | XMS REPORT ---
Author Author Sydnie MORTON Organization [facility] Address [address] [place] [address] Care Team Providers Care Leasing Professional Name Role Phone JOHN MORTON Unavailable PROBLEMS Type Condition ICD9-CM Code [id number]-LM Code Onset Dates Condition S tatus SNOMED Code Problem Hormone replacement therapy Z79.890 Ac tive 348058371 Problem Abnormal CT scan, head R93.0 Active 122955085 Problem Sensorineural hearing loss (SNHL) of both ears H90 .3 Active 135564829 Problem History of colon polyps Z86.010 Active 159530677 Problem Bruising, spontaneous R23.3 Active 423946359 Problem Generalized anxiety disorder F41.1 A ctive 49387466 Problem Arthralgia of hip, unspecified laterality M25.559 Active 02592430 Problem Hematuria, unspecified type R31.9 Ac tive 92348005 Problem Imbalance R26.89 Active 042420275 Problem Hammer toe of right foot M20.41 Activ e 228798840 Problem Plantar wart of right foot B07.0 Act mitchell [id number] Problem Sciatica of left side M54.32 Active 82453679 Problem Hyperlipidemia, unspecified hyperlipidemia type E7 8.5 Active 35841515 Problem Hypertension I10 Active 5654799 3 Problem Night sweats R61 Active 7940988 0 Problem Fibromyalgia M79.7 Active 8404916 7 Problem Major depressive disorder, recurrent episode, moderate F33.1 Active 236128515 Problem Acute left-sided low back pain with left-sided sciatica M54.42 Active 353811599 Problem Bladder spasm N32.89 Active 423842 006 Problem Gastritis without bleeding, unspecified chronicity, unspecified gastritis type K29.70 Active 800320096 Problem Bipolar 1 disorder, mixed F31.60 Acti ve 40797251 Problem Grief F43.20 Active 90972883 Problem Other chronic pain G89.29 Active 8 9508961 Problem Allergic rhinitis J30.9 Active 61 170814 Problem Hot flashes due to menopause N95.1 A ctive 008405608 Problem Ataxia R27.0 Active 47370844 Problem Hearing loss, unspecified laterality H91.90 Active 50795354 ALLERGIES No Information ENCOUNTERS Encounter Location Date Diagnosis [facility] [address] [facility] [id number] [address] [place] [address] Jan, [facility] [address] [facility] [id number] [address] [place] [address] Jan, [facility] [address] [facility] [id number] [address] [place] [address] Jan, [facility] [address] [facility] [id number] [address] [place] [address] Dec, [facility] [address] [facility] [id number] [address] [place] [address] Dec, [facility] [address] [facility] [id number] [address] [place] [address] Dec, [facility] [address] [facility] [id number] [address] [place] [address] Dec, Bipolar 1 disorder, mixed F3 1.60 [facility] [address] [facility] [id number] [address] [place] [address] Nov, Bipolar 1 disorder, mixed F3 1.60 [facility] [address] [facility] [id number] [address] [place] [address] Nov, Bipolar 1 disorder, mixed F3 1.60 [facility] [address] [facility] [id number] [address] [place] [address] Nov, Bipolar 1 disorder, mixed F3 1.60 [facility] [address] [facility] [id number] [address] [place] [address] Nov, Allergic rhinitis J30.9 [facility] [address] [facility] [id number] [address] [place] [address] Nov, Allergic rhinitis J30.9 [facility] [address] [facility] [id number] [address] [place] [address] Nov, [facility] [address] [place] [address] Nov, Bipolar 1 disorder, mixed F3 1.60 [place] [address] [place] [id number] [place] [address] Nov, Fibromyalgia M79.7 and Aller gic rhinitis J30.9 [facility] [address] [facility] [id number] [address] [place] [address] October, Bipolar 1 disorder, mixed F3 1.60 [facility] [place] [address] [place] [id number] [place] [address] October, Acute nasopharyngitis J00 [facility] [address] [address] October, Bitten or stung by nonvenomo us insect and other nonvenomous arthropods, initial encounter W57.XXXA and Insect bite (nonvenomous) of abdominal wall, initial encounter S30.861A [place] [address] [address] October, Insect bite (nonvenomous) of abdominal wall, initial encounter S30.861A ; Bitten or stung by nonvenomous insect and other nonvenomous arthropods, initial encounter W57.XXXA ; Allergic rhinitis J30.9 and Low back pain M54.5 [facility] [address] [place] [id number] [place] [address] October, Bipolar 1 disorder, mixed F3 1.60 [place] [address] [address] October, [place] [address] [place] [id number] [place] [address] October, [place] [address] [address] October, Bipolar 1 disorder, mixed F3 1.60 [facility] [address] [id number] [address] [place] [address] Sep, Bipolar 1 disorder, mixed F3 1.60 [facility] [address] [facility] [id number] [address] [place] [address] Sep, Other chronic pain G89.29 [facility] [address] [facility] [id number] [address] [place] [address] Sep, [facility] [address] [facility] [id number] [address] [place] [address] Sep, Bipolar 1 disorder, mixed F3 1.60 [facility] [address] [facility] [id number] [address] [place] [address] Sep, Allergic rhinitis J30.9 and Sciatica of left side M54.32 [facility] [address] [facility] [id number] [address] [place] [address] Sep, Bipolar 1 disorder, mixed F3 1.60 [facility] [address] [facility] [id number] [address] [place] [address] Sep, Bipolar 1 disorder, mixed F3 1.60 and Generalized anxiety disorder F41.1 [facility] [address] [facility] [id number] [address] [place] [address] Aug, [facility] [address] [facility] [id number] [address] [place] [address] Aug, Bipolar 1 disorder, mixed F3 1.60 [facility] [address] [facility] [id number] [address] [place] [address] Aug, Bipolar 1 disorder, mixed F3 1.60 [facility] [address] [facility] [id number] [address] [place] [address] Aug, [facility] [address] [facility] [id number] [address] [place] [address] Aug, Generalized anxiety disorder F41.1 [facility] [address] [place] [id number] [place] [address] Aug, Bipolar 1 disorder, mixed F3 1.60 [facility] [address] [place] [id number] [address] [place] [address] Aug, Plantar wart of right foot B 07.0 [facility] [address] [place] [id number] [place] [address] Aug, Bipolar 1 disorder, mixed F3 1.60 [facility] [address] [place] [id number] [place] [address] Jul, Bipolar 1 disorder, mixed F3 1.60 [place] [address] [address] Jul, [place] [address] [address] Jul, Bipolar 1 disorder, mixed F3 1.60 [facility] [address] [place] [id number] [address] [place] [address] Jul, Generalized anxiety disorder F41.1 [facility] [address] [place] [address] Jul, Bipolar 1 disorder, mixed F3 1.60 [place] [address] [place] [id number] [address] [place] [address] Jul, Acute left-sided low back pa in with left-sided sciatica M54.42 [facility] [address] [place] [id number] [place] [address] Jul, Coccydynia M53.3 [facility] [address] [place] [id number] [place] [address] Jun, Bipolar 1 disorder, mixed F3 1.60 [facility] [address] [place] [id number] [place] [address] Jun, Acute nasopharyngitis J00 [facility] [address] [address] Jun, Bipolar 1 disorder, mixed F3 1.60 [place] [address] [address] Jun, Fibromyalgia M79.7 [place] [address] [address] Jun, Bipolar 1 disorder, mixed F3 1.60 [place] [address] [address] Jun, Fibromyalgia M79.7 and Bipol ar 1 disorder, mixed F31.60 [place] [address] [address] May, Bipolar 1 disorder, mixed F3 1.60 ; Generalized anxiety disorder F41.1 and Other group home (current) drug therapy Z79.899 [place] [address] [address] May, Bipolar 1 disorder, mixed F3 1.60 [facility] [address] [place] [address] 14 May, 2017 Cough R05 and Body aches R52 [facility] IN [address] [address] 10 May, 2017 Bladder spasm N32.89 and Acu te cystitis without hematuria N30.00 [place] [address] [address] 07 May, 2017 Bipolar 1 disorder, mixed F3 1.60 [place] [address] [address] Apr, [place] [address] [address] Apr, Major depressive disorder, r ecurrent episode, moderate F33.1 and Encounter for immunization Z23 [place] [address] [address] Apr, Bipolar 1 disorder, mixed F3 1.60 [facility] [address] Apr, Bipolar 1 disorder, mixed F3 1.60 [facility] [address] [place] [id number] [place] [id number] Apr, Bipolar 1 disorder, mixed F3 1.60 [facility] [address] [address] Apr, Yeast vaginitis B37.3 [facility] [address] 09 Apr, 2017 Bipolar 1 disorder, mixed F3 1.60 [facility] [address] [place] [id number] 07 Apr, 2017 Cellulitis L03.[address] for immunization Z23 [place] [address] [address] Apr, Bipolar 1 disorder, mixed F3 1.60 [place] [address] [place] [address] Mar, Bipolar 1 disorder, mixed F3 1.60 [facility] [address] [address] Mar, Bipolar 1 disorder, mixed F3 1.60 [facility] [address] [place] [address] Mar, Imbalance R26.89 and Encount er for immunization Z23 [facility] [address] [place] [address] Mar, Generalized anxiety disorder F41.1 [facility] [address] [place] [id number] Mar, Bipolar 1 disorder, mixed F3 1.60 [facility] [address] [address] Mar, Generalized anxiety disorder F41.1 [place] [address] [facility] [id number] [address] [place] [address] Mar, Bipolar 1 disorder, mixed F3 1.60 [place] [address] [facility] [id number] [address] [place] [address] Mar, Bipolar 1 disorder, mixed F3 1.60 [place] [address] [facility] [id number] [address] [place] [address] Feb, Bipolar 1 disorder, mixed F3 1.60 [place] [address] [facility] [id number] [address] [place] [address] Feb, Bipolar 1 disorder, mixed F3 1.60 and Generalized anxiety disorder F41.1 [place] [address] [place] [id number] [place] [address] Feb, Gastritis without bleeding, unspecified chronicity, unspecified gastritis type K29.70 ; Hammer toe of right foot M20.41 and Other viral warts B07.8 [place] [address] [facility] [id number] [address] [place] [address] Feb, Bipolar 1 disorder, mixed F3 1.60 [place] [address] [facility] [id number] [address] [place] [address] Feb, Bipolar 1 disorder, mixed F3 1.60 [place] [address] [facility] [id number] [address] [place] [address] Feb, Bipolar 1 disorder, mixed F3 1.60 [place] [address] [facility] [id number] [address] [place] [address] Jan, Encounter for screening mamm ogram for breast cancer Z12.31 ; Other viral warts B07.8 and Allergic rhinitis J30.9 [place] [address] [facility] [id number] [address] [place] [address] Jan, Bipolar 1 disorder, mixed F3 1.60 [place] [address] [facility] [id number] [address] [place] [address] Jan, Bipolar 1 disorder, mixed F3 1.60 [place] [address] [place] [id number] [place] [address] Jan, [facility] [address] [place] [id number] [place] [address] Jan, Bipolar 1 disorder, mixed F3 1.60 [facility] [address] [place] [id number] [place] [address] Jan, Bipolar 1 disorder, mixed F3 1.60 [place] [address] [place] [id number] [place] [address] Jan, Allergic rhinitis J30.9 ; He maturia R31.9 and Colon cancer screening Z12.11 [place] [address] [place] [id number] [address] [place] [address] Dec, Bipolar 1 disorder, mixed F3 1.60 [place] [address] [address] Dec, Bipolar 1 disorder, mixed F3 1.60 ; Generalized anxiety disorder F41.1 and Other group home (current) drug therapy Z79.899 [place] [address] [place] [id number] [address] [place] [address] Dec, Bipolar 1 disorder, mixed F3 1.60 [place] [address] [place] [address] Dec, Bipolar 1 disorder, mixed F3 1.60 [place] [address] [place] [id number] [place] [address] Dec, Bipolar 1 disorder, mixed F3 1.60 [place] [address] [place] [id number] [place] [address] Dec, Low back pain M54.5 and Recu rrent urinary tract infection N39.0 [place] [address] [place] [address] Nov, Bipolar 1 disorder, mixed F3 1.60 [facility] [address] [facility] [id number] [address] [place] [address] Nov, Bipolar 1 disorder, mixed F3 1.60 [facility] [address] [place] [id number] [place] [address] Nov, Bipolar 1 disorder, mixed F3 1.60 [facility] [address] [place] [id number] [place] [address] Nov, Bipolar 1 disorder, mixed F3 1.60 [facility] [address] [place] [id number] [place] [address] Nov, [facility] [address] [place] [id number] [place] [address] Nov, Anesthesia of skin R20.0 ; F requent UTI N39.0 ; Tobacco abuse Z72.0 and Colon cancer screening Z12.11 [facility] [address] [place] [id number] [place] [address] Nov, Bipolar 1 disorder, mixed F3 1.60 [place] [address] [place] [id number] [place] [address] October, Bipolar 1 disorder, mixed F3 1.60 [facility] [address] [place] [id number] [place] [address] October, Bipolar 1 disorder, mixed F3 1.60 [facility] [address] [place] [id number] [place] [address] October, Bipolar 1 disorder, mixed F3 1.60 [facility] [address] [place] [id number] [place] [address] October, Bipolar 1 disorder, mixed F3 1.60 [facility] [address] [place] [id number] [place] [address] October, Bipolar 1 disorder, mixed F3 1.60 [facility] [address] [place] [id number] [place] [address] October, Cervicalgia M54.2 and Bipola r 1 disorder, mixed F31.60 [place] [address] [address] October, Hypertension I10 ; Hyperlipi demia, unspecified hyperlipidemia type E78.5 and Family history of thyroid disease Z83.49 [place] [address] [address] October, [place] [address] [address] October, Hypertension I10 ; Hyperlipi demia, unspecified hyperlipidemia type E78.5 and Family history of thyroid problem Z83.49 [place] [address] [address] October, Bipolar 1 disorder, mixed F3 1.60 [place] [address] [address] Sep, Bipolar 1 disorder, mixed F3 1.60 [place] [address] [address] Sep, Bipolar 1 disorder, mixed F3 1.60 [place] [address] [address] Sep, Bipolar 1 disorder, mixed F3 1.60 [place] [address] [address] Sep, History of colon polyps Z86. 010 and Hematochezia K92.1 [place] [address] [address] Sep, Major depressive disorder, r ecurrent episode, moderate F33.1 [place] [address] [address] Sep, Bipolar 1 disorder, mixed F3 1.60 [place] [address] [address] Aug, Hot flashes due to menopause N95.1 [facility] [address] [place] [address] Aug, Bipolar 1 disorder, mixed F3 1.60 [facility] [address] [place] [address] Aug, [facility] [address] [place] [address] Aug, Bipolar 1 disorder, mixed F3 1.60 [facility] [address] [place] [address] Aug, Bipolar 1 disorder, mixed F3 1.60 [facility] [address] Aug, Hot flashes due to menopause N95.1 ; Cervicalgia M54.2 and Ataxia R27.0 [facility] [address] [address] Jul, Bipolar 1 disorder, mixed F3 1.60 [place] [address] [place] [address] Jul, Bipolar 1 disorder, mixed F3 1.60 [facility] [address] [address] Jul, Bipolar 1 disorder, mixed F3 1.60 [place] [address] [address] Jul, Bipolar 1 disorder, mixed F3 1.60 [place] [address] [place] [address] Jul, Bipolar 1 disorder, mixed F3 1.60 [facility] [address] [place] [id number] Jul, Cervicalgia M54.2 ; Tremor R 25.1 ; Hearing abnormally acute, unspecified laterality H93.239 ; Alopecia L65.9 ; Encounter for immunization Z23 and Family history of thyroid disease Z83.49 [facility] [address] [place], [place] [address] Jul, Bipolar 1 disorder, mixed F3 1.60 [facility] [address] [place] [id number] [place], [place] [id number] Jun, [place] [address] [place] [id number] Jun, Hearing disorder, unspecifie d laterality H93.299 [facility] [address] [place] [address] Jun, Bipolar 1 disorder, mixed F3 1.60 [place] [address] [place] [address] Jun, Bipolar 1 disorder, mixed F3 1.60 [place] [address] [place] [address] Jun, Allergic rhinitis J30.9 [facility] [address] [place] [id number] [address] [place] [address] Jun, Bipolar 1 disorder, mixed F3 1.60 [place] [address] [place] [id number] [address] [place] [address] Jun, Bipolar 1 disorder, mixed F3 1.60 [place] [address] [place] [id number] [address] [place] [address] Jun, Allergic rhinitis J30.9 [facility] [address] [place] [id number] [place] [address] Jun, Allergic rhinitis J30.9 [facility] [address] [place] [id number] [place] [id number] Jun, Bipolar 1 disorder, mixed F3 1.60 [facility] [address] [place] [id number] [place] [address] May, Bipolar 1 disorder, mixed F3 1.60 [place] [address] [facility] [id number] [address] [place] [address] May, Bipolar 1 disorder, mixed F3 1.60 [facility] [address] [facility] [id number] [address] [place] [address] May, [facility] [address] [facility] [id number] [address] [place] [address] May, Bipolar 1 disorder, mixed F3 1.60 [facility] [address] [facility] [id number] [address] [place] [address] May, Bipolar 1 disorder, mixed F3 1.60 [facility] [address] [facility] [id number] [address] [place] [address] May, [facility] [address] [place] [id number] [place] [address] May, [facility] [address] [address] May, [facility] [address] [place] [id number] [place] [address] May, Abdominal pain, unspecified location R10.9 [facility] [address] [place] [id number] [place] [address] May, [facility] [address] [place] [id number] [place] [address] Apr, Hematuria R31.9 ; Ataxia R27 .0 and Hearing loss, unspecified laterality H91.90 [facility] [address] [facility] [id number] [place] [id number] Apr, Bipolar 1 disorder, mixed F3 1.60 [facility] [address] [facility] [id number] [address] [place] [id number] Apr, Acute effusion of both middl e ears H65.193 [facility] [address] [facility] [id number] [address] [place] [id number] Apr, Hematuria R31.9 and Pyelonep hritis N12 [facility] [address] [place] [id number] [place] [phone] Apr, [place] [address] [place] [id number] [place] [id number] Mar, Bipolar 1 disorder, mixed F3 1.60 [facility] [address] [place] [id number] [place] [id number] Mar, [place] [address] [place] [id number] [place] [id number] Mar, Bipolar 1 disorder, mixed F3 1.60 [place] [address] [place] [id number] [place] [id number] Mar, Bipolar 1 disorder, mixed F3 1.60 [place] [address] [place] [id number] [place] [phone] Mar, Encounter for immunization Z 23 and Gastritis without bleeding, unspecified chronicity, unspecified gastritis type K29.70 [place] [address] [place] [id number] [place] [id number] Mar, Bipolar 1 disorder, mixed F3 1.60 and Grief F43.20 [place] [address] [place] [id number] [place] [id number] Mar, Gastritis without bleeding, unspecified chronicity, unspecified gastritis type K29.70 [place] [address] [place] [id number] [address] [place] [address] Mar, Bipolar 1 disorder, mixed F3 1.60 [place] [address] [place] [id number] [address] [place] [address] Mar, Gastritis without bleeding, unspecified chronicity, unspecified gastritis type K29.70 [facility] [address] [facility] [id number] [address] [place] [address] Mar, [place] [address] [place] [id number] [address] [place] [address] Feb, Bipolar 1 disorder, mixed F3 1.60 [facility] [id number] [place] [address] Feb, Bipolar 1 disorder, mixed F3 1.60 and Grief F43.20 [facility] [address] [place] [id number] [address] [place] [id number] 22 Feb, 2016 Gastritis without bleeding, unspecified chronicity, unspecified gastritis type K29.70 [place] [address] [place] [id number] [address] [place] [id number] 14 Feb, 2016 Bipolar 1 disorder, mixed F3 1.60 [facility] [address] 09 Feb, 2016 Gastroesophageal reflux dise ase, esophagitis presence not specified K21.9 [place] [address] Jan, Bipolar 1 disorder, mixed F3 1.60 [place] [address] [place] [address] Jan, Bipolar 1 disorder, mixed F3 1.60 and Unsteady gait R26.81 [place] [address] Jan, Bipolar 1 disorder, mixed F3 1.60 [place] [address] [place] [id number] [address] [place] [address] Jan, Bipolar 1 disorder, mixed F3 1.60 and Other kiln fireman (current) 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 therapy Z79.899 [place] [address] [place] [id number] [address] [place] [address] Jan, Bipolar 1 disorder, mixed F3 1.60 [place] [address] [place] [id number] [address] [place] [address] Jan, Bipolar 1 disorder, mixed F3 1.60 [place] [address] [address] Jan, Bipolar 1 disorder, mixed F3 1.60 ; Grief F43.20 and Other 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 fireman (current) 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 therapy Z79.899 [facility] [address] [place] [id number] [place] [address] Jan, Bipolar 1 disorder, mixed F3 1.60 [facility] [address] [facility] [id number] [address] [place] [address] Dec, [facility] [address] [place] [id number] [place] [address] Dec, Bipolar 1 disorder, mixed F3 1.60 ; Vitamin D deficiency, unspecified E55.9 ; H/O allergic rhinitis Z87.09 ; Other chronic pain G89.29 and Dorsalgia, unspecified M54.9 [place] [address] [place] [id number] [place] [address] Dec, [place] [address] [place] [id number] [place] [address] Dec, Bipolar 1 disorder, mixed F3 1.60 [place] [place] [id number] [address] [place] [address] Dec, Major depressive disorder, r ecurrent episode, moderate F33.1 [place] [address] [place] [id number] [address] [place] [address] Dec, Major depressive disorder, r ecurrent episode, moderate F33.1 [place] [address] [place] [id number] [place] [address] Nov, [place] [address] [facility] [id number] [address] [place] [address] Nov, Bipolar 1 disorder, mixed F3 1.60 [place] [address] [place] [id number] [place] [address] Nov, Major depressive disorder, r ecurrent episode, moderate F33.1 [place] [address] [place] [id number] [place] [address] Nov, Cervicalgia M54.2 ; Arthralg ia of hip, unspecified laterality M25.559 ; Allergic rhinitis J30.9 and Hormone replacement therapy Z79.890 [facility] [address] [id number] [address] [place] [address] 13 Nov, 2015 Other seasonal allergic rhin itis J30.2 [facility] [address] [id number] [address] [place] [address] October, Major depressive disorder, r ecurrent episode, moderate F33.1 [facility] [address] [id number] [address] [place] [address] October, Major depressive disorder, r ecurrent episode, moderate F33.1 and Arthralgia of hip, unspecified laterality M25.559 [facility] [address] [facility] [id number] [address] [place] [address] October, Grief F43.20 ; Hypertension I10 ; Hyperlipidemia, unspecified hyperlipidemia type E78.5 ; Other chronic pain G89.29 and Allergic rhinitis, unspecified allergic rhinitis type J30.9 [facility] [address] [id number] [address] [place] [address] October, Major depressive disorder, r ecurrent episode, moderate F33.1 [facility] [address] [id number] [address] [place] [address] Sep, Major depressive disorder, r ecurrent episode, moderate F33.1 [place] [address] [id number] [address] [place] [address] Sep, [place] [address] [id number] [address] [place] [address] Sep, Major depressive disorder, r ecurrent episode, moderate F33.1 [place] [address] [facility] [id number] [address] [place] [address] Sep, Grief F43.20 [place] [address] [facility] [id number] [address] [place] [address] Aug, Major depressive disorder, r ecurrent episode, moderate F33.1 [facility] [address] [place] [id number] [place] [address] Aug, Bipolar 1 disorder, mixed F3 1.60 [facility] [address] [facility] [id number] [address] [place] [address] Aug, Allergic rhinitis J30.9 ; Ce rvicalgia M54.2 and Low back pain M54.5 [place] [address] [place] [id number] [address] [place] [address] Aug, Major depressive disorder, r ecurrent episode, moderate F33.1 [facility] [address] [place] [id number] [place] [address] Aug, Sinusitis J32.9 and Tobacco 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 [place] [address] [address] Aug, [place] [address] [address] Aug, Depressive disorder, not els ewhere classified F32.9 ; Hormone replacement therapy Z79.[address] scan, head R93.0 [place] [address] [place] [id number] [place] [address] Aug, Major depressive disorder, r ecurrent episode, moderate F33.1 [place] [address] [place] [address] Jul, Major depressive disorder, r ecurrent episode, moderate F33.1 [place] [address] [place] [id number] [address] [place] [address] Jul, Abdominal pain R10.9 and Hyp ertension I10 [place] [address] [place] [id number] [address] [place] [address] Jul, [place] [address] [place] [id number] [address] [place] [address] Jul, Major depressive disorder, r ecurrent episode, moderate F33.1 [facility] [address] [id number] [address] [place] [address] Jul, [facility] [address] [id number] [address] [place] [address] Jul, [facility] [address] [id number] [address] [place] [address] Jun, [facility] [address] [id number] [address] [place] [address] Jun, Depressive disorder, not els ewhere classified F32.9 [facility] [address] [id number] [address] [place] [address] Jun, [facility] [address] [id number] [address] [place] [address] Jun, [facility] [address] [place] [id number] [place] [address] Jun, Arthralgia of hip, unspecifi ed laterality M25.559 ; Bruising, spontaneous R23.3 and Night sweats R61 [facility] [address] [facility] [id number] [address] [place] [address] Jun, [facility] [address] [facility] [id number] [address] [place] [address] Jun, [facility] [address] [facility] [id number] [address] [place] [address] May, [place] [address] [facility] [id number] [address] [place] [address] May, Myalgia M79.1 and Screening, lipid Z13.220 [place] [address] [facility] [id number] [address] [place] [address] 10 Apr, 2015 Status post cervical spinal fusion Z98.1 ; Fibromyalgia M79.7 and Unsteady gait R26.81 [facility] [address] [place] [id number] [place] [address] Nov, [facility] [address] [id number] [address] [place] [address] Nov, [facility] [address] [id number] [address] [place] [address] October, [facility] [address] [id number] [address] [place] [address] October, [facility] [address] [id number] [address] [place] [address] October, [facility] [address] [id number] [address] [place] [address] October, [facility] [address] [id number] [address] [place] [address] October, [facility] [address] [id number] [address] [place] [address] October, Dysuria 788.1 ; Nausea 787.0 2 and Urinary tract infection 599.0 [facility] [address] [id number] [address] [place] [address] Sep, [facility] [address] [id number] [address] [place] [address] Sep, [facility] [address] [id number] [address] [place] [address] Aug, [facility] [address] [id number] [address] [place] [address] Aug, [facility] [address] [id number] [address] [place] [address] Aug, [facility] [address] [id number] [address] [place] [address] Aug, [facility] [address] [id number] [address] [place] [address] Aug, [facility] [address] [id number] [address] [place] [address] 19 Aug, 2014 [facility] [address] [id number] [facility] [address] 19 Aug, 2014 [facility] [address] [id number] [address] [place] [address], [place] [address] 19 Aug, 2014 [facility] [address] [id number] [address] [place] [address], [place] [address] 19 Aug, 2014 [facility] [address] [id number] [address] [place] [address], [place] [address] 18 Aug, 2014 [facility] [address] [id number] [address] [place] [address], [place] [address] 18 Aug, 2014 [facility] [address] [id number] [address] [place] [address], [place] [address] 13 Aug, 2014 [facility] [address] [id number] [address] [place] [address], [place] [address] 13 Aug, 2014 [facility] [address] [id number] [address] [place] [address], [place] [address] 11 Aug, 2014 [facility] [address] [id number] [address] [place] [address], [place] [address] 11 Aug, 2014 [facility] [address] [id number] [address] [place] [address], [place] [address] 06 Aug, 2014 [facility] [address] [id number] [address] [place] [address], [place] [address] 06 Aug, 2014 [facility] [address] [id number] [address] [place] [address], [place] [address] 05 Aug, 2014 [facility] [address] [id number] [address] [place] [address], [place] [address] 05 Aug, 2014 [facility] [address] [id number] [address] [place] [address], [place] [address] 04 Aug, 2014 [facility] [address] [id number] [address] [place] [address], [place] [address] 03 Aug, 2014 [facility] [address] [id number] [address] [place] [address], [place] [address] Aug, [facility] [address] [id number] [address] [place] [address], [place] [address] Jul, 2014 [facility] [address] [id number] [address] [place] [address], [place] [address] Jul, 2014 [facility] [address] [id number] [address] [place] [address], [place] [address] Jul, 2014 [facility] [address] [id number] [address] [place] [address], [place] [address] Jul, 2014 [facility] [address] [id number] [address] [place] [address], [place] [address] Jul, 2014 [facility] [address] [id number] [address] [place] [address], [place] [address] Jul, 2014 [facility] [address] [id number] [address] [place] [address], [place] [address] Jul, 2014 [facility] [address] [id number] [address] [place] [address], [place] [address] Jul, 2014 [facility] [address] [id number] [address] [place] [address], [place] [address] Jul, 2014 [facility] [address] [id number] [address] [place] [address], [place] [address] Jul, 2014 [facility] [address] [id number] [address] [place] [address] Jul, 2014 [facility] [address] [id number] [address] [place] [address], [place] [address] Jul, 2014 [facility] [address] [id number] [address] [place] [address], [place] [address] Jul, 2014 [facility] [address] [id number] [address] [place] [address], [place] [address] Jul, 2014 [facility] [address] [id number] [address] [place] [address], [place] [address] Jun, [facility] [address] [id number] [address] [place] [address], [place] [address] Jun, [facility] [address] [id number] [address] [place] [address], [place] [address] Jun, [facility] [address] [id number] [address] [place] [address], [place] [address] Jun, [facility] [address] [id number] [address] [place] [address], [place] [address] Jun, [facility] [address] [id number] [address] [place] [address], [place] [address] Jun, [facility] [address] [id number] [address] [place] [address], [place] [address] May, [facility] [address] [id number] [address] [place] [address], [place] [address] May, [facility] [address] [id number] [address] [place] [address], [place] [address] May, [facility] [address] [id number] [address] [place] [address], [place] [address] May, [facility] [address] [id number] [address] [place] [address], [place] [address] May, [facility] [address] [id number] [address] [place] [address], [place] [address] May, [facility] [address] [id number] [address] [place] [address], [place] [address] Apr, [facility] [address] [id number] [address] [place] [address], [place] [address] Apr, [facility] [address] [id number] [address] [place] [address], [place] [address] Apr, [facility] [address] [id number] [address] [place] [address], [place] [address] Apr, [facility] [address] [id number] [address] [place] [address], [place] [address] Apr, [facility] [address] [id number] [address] [place] [address], [place] [address] Apr, [facility] [address] [id number] [address] [place] [address], [place] [address] Mar, [facility] [address] [id number] [address] [place] [address], [place] [address] Mar, [facility] [address] [id number] [address] [place] [address], [place] [address] Mar, [facility] [address] [id number] [address] [place] [address], [place] [address] Mar, [facility] [address] [id number] [address] [place] [address], [place] [address] Mar, [facility] [address] [id number] [address] [place] [address], [place] [address] Mar, [facility] [address] [id number] [address] [place] [address], [place] [address] Mar, [facility] [address] [id number] [address] [place] [address], [place] [address] Mar, [facility] [address] [id number] [address] [place] [address], [place] [address] Mar, [facility] [address] [id number] [address] [place] [address], [place] [address] Mar, [facility] [address] [id number] [address] [place] [address], [place] [address] Mar, [facility] [address] [id number] [address] [place] [address], [place] [address] Mar, [facility] [address] [id number] [address] [place] [address], [place] [address] Feb, [facility] [address] [id number] [address] [place] [address], [place] [address] Feb, [facility] [address] [id number] [facility] [address] Feb, [facility] [address] [id number] [address] [place] [address], [place] [address] Feb, [facility] [address] [id number] [address] [place] [address], [place] [address] Feb, [facility] [address] [id number] [address] [place] [address], [place] [address] Feb, [facility] [address] [id number] [address] [place] [address], [place] [address] Feb, [facility] [address] [id number] [address] [place] [address], [place] [address] Jan, [facility] [address] [id number] [address] [place] [address], [place] [address] Jan, [facility] [address] [id number] [address] [place] [address], [place] [address] Jan, [facility] [address] [id number] [address] [place] [address], [place] [address] Dec, [facility] [address] [id number] [address] [place] [address], [place] [address] Dec, [facility] [address] [id number] [address] [place] [address], [place] [address] Dec, [facility] [address] [id number] [address] [place] [address], [place] [address] Dec, [facility] [address] [id number] [address] [place] [address], [place] [address] Sep, [facility] [address] [id number] [address] [place] [address], [place] [address] Sep, [facility] [address] [id number] [address] [place] [address], [place] [address] Sep, [facility] [address] [id number] [address] [place] [address], [place] [address] Sep, [facility] [address] [id number] [address] [place] [address], [place] [address] Sep, [facility] [address] [id number] [address] [place] [address], [place] [address] Sep, [facility] [address] [id number] [address] [place] [address], [place] [address] Sep, [facility] [address] [id number] [address] [place] [address], [place] [address] Sep, [facility] [address] [id number] [address] [place] [address], [place] [address] Aug, [facility] [address] [id number] [address] [place] [address], [place] [address] Aug, [facility] [address] [id number] [address] [place] [address], [place] [address] May, [facility] [address] [id number] [address] [place] [address], [place] [address] May, [facility] [address] [id number] [address] [place] [address], [place] [address] Apr, [facility] [address] [id number] [address] [place] [address], [place] [address] Apr, [facility] [address] [id number] [address] [place] [address], [place] [address] Apr, [facility] [address] [id number] [address] [place] [address], [place] [address] Apr, [facility] [address] [id number] [address] [place] [address], [place] [address] Apr, [facility] [address] [id number] [address] [place] [address], [place] [address] Apr, [facility] [address] [id number] [address] [place] [address], [place] [address] May, [facility] [address] [id number] [address] [place] [address], [place] [address] 18 May, 2012 [facility] [address] [id number] [address] [place] [address], [place] [address] 15 May, 2012 [facility] [address] [id number] [address] [place] [address], [place] [address] 15 May, 2012 [facility] [address] [id number] [address] [place] [address], [place] [address] 13 May, 2012 [facility] [address] [id number] [address] [place] [address], [place] [address] 13 May, 2012 [facility] [address] [id number] [address] [place] [address], [place] [address] 13 Apr, 2012 [facility] [address] [id number] [address] [place] [address], [place] [address] 13 Apr, 2012 [facility] [address] [id number] [address] [place] [address], [place] [address] 08 Apr, 2012 [facility] [address] [id number] [address] [place] [address], [place] [address] Apr, [facility] [address] [id number] [address] [place] [address], [place] [address] 08 Apr, 2012 [facility] [address] [id number] [address] [place] [address], [place] [address] Apr, [facility] [address] [id number] [address] [place] [address] Apr, [facility] [address] [id number] [address] [place] [address], [place] [address] Apr, [facility] [address] [id number] [address] [place] [address], [place] [address] Apr, [facility] [address] [id number] [address] [place] [address], [place] [address] Apr, [facility] [address] [id number] [address] [place] [address] Mar, [facility] [address] [id number] [address] [place] [address], [place] [address] Mar, [facility] [address] [id number] [address] [place] [address] Mar, [facility] [address] [id number] [address] [place] [address], [place] [address] Mar, [facility] [address] [id number] [address] [place] [address] [address] Mar, [facility] [address] [id number] [address] [place] [address], [place] [address] Mar, [facility] [address] [id number] [address] [place] [address], [place] [address] Mar, [facility] [address] [id number] [address] [place] [address], [place] [address] Mar, [facility] [address] [id number] [address] [place] [address], [place] [address] Mar, [facility] [address] [id number] [address] [place] [address], [place] [address] Feb, [facility] [address] [id number] [address] [place] [address], [place] [address] 16 Feb, 2012 [facility] [address] [id number] [address] [place] [id number] Feb, [facility] [address] [id number] [address] [place] [address] Jan, [facility] [address] [id number] [address] [place] [address], [place] [address] Jan, [facility] [address] [id number] [address] [place] [address], [place] [address] Jan, [facility] [address] [id number] [address] [place] [address], [place] [address] Jan, [facility] [address] [id number] [address] [place] [address], [place] [address] 17 Jan, 2012 [facility] [address] [id number] [address] [place] [address], [place] [address] Jan, [facility] [address] [id number] [address] [place] [address], [place] [address] Jan, [facility] [address] [id number] [address] [place] [address], [place] [address] Jan, [facility] [address] [id number] [address] [place] [address], [place] [address] Jan, [facility] [address] [id number] [address] [place] [address], [place] [address] Jan, [facility] [address] [id number] [address] [place] [address], [place] [address] Dec, [facility] [address] [id number] [address] [place] [address], [place] [address] Dec, [facility] [address] [id number] [address] [place] [address], [place] [address] Dec, [facility] [address] [id number] [address] [place] [address], [place] [address] Dec, [facility] [address] [id number] [address] [place] [address], [place] [address] Nov, [facility] [address] [id number] [address] [place] [address], [place] [address] Nov, [facility] [address] [id number] [address] [place] [address], [place] [address] Nov, [facility] [address] [id number] [address] [place] [address], [place] [address] October, [facility] [address] [id number] [address] [place] [address], [place] [address] October, [facility] [address] [id number] [address] [place] [address], [place] [address] October, [facility] [address] [id number] [address] [place] [address] October, [facility] [address] [id number] [address] [place] [address] October, [facility] [address] [id number] [address] [place] [id number] October, [facility] [address] [id number] [address] [place] [id number] Aug, [facility] [address] [id number] [address] [place] [address] Mar, [facility] [address] [id number] [address] [place] [address] Nov, [facility] [address] [id number] [address] [place] [id number] May, [facility] [address] [id number] [address] [place] [address] May, [facility] [address] [id number] [address] [place] [address] Apr, [facility] [address] [id number] [address] [place] [address] Mar, [facility] [address] [id number] [address] [place] [address] Mar, IMMUNIZATIONS No Known Immunizations SOCIAL HISTORY Never Assessed REASON FOR VISIT f/u PLAN OF CARE Activity Details Follow Up 1 Week Reason: F/U VITAL SIGNS MEDICATIONS Unknown Medications RESULTS No Results PROCEDURES Procedure Date Ordered Result Body Site [facility] VISIT MENTAL HEALTH ESTAB PT Aug 01, 2017 Psychotherapy, patient &/family, 45 minutes, established patient Aug 01, 2017 INSTRUCTIONS MEDICATIONS ADMINISTERED No Known [...]
--- OUTSIDE RECORDS SUMMARY | 2019-06-19 05:49 | XMS REPORT ---
Author Author Sydnie MORTON Organization [facility] Address [address] [place] [address] Care Team Providers Care Cafe Site Attendant Name Role Phone JOHN MORTON Unavailable PROBLEMS Type Condition ICD9-CM Code YVR45-UL Code Onset Dates Condition S tatus SNOMED Code Problem Hormone replacement therapy Z79.890 Ac tive 029638723 Problem Abnormal CT scan, head R93.0 Active 616557696 Problem Sensorineural hearing loss (SNHL) of both ears H90 .3 Active 341887508 Problem History of colon polyps Z86.010 Active 638712069 Problem Bruising, spontaneous R23.3 Active 091925579 Problem Generalized anxiety disorder F41.1 A ctive 47226706 Problem Arthralgia of hip, unspecified laterality M25.559 Active 41859580 Problem Hematuria, unspecified type R31.9 Ac tive 73987083 Problem Imbalance R26.89 Active 105192941 Problem Hammer toe of right foot M20.41 Activ e 242289050 Problem Plantar wart of right foot B07.0 Act mitchell [id number] Problem Sciatica of left side M54.32 Active 18613322 Problem Hyperlipidemia, unspecified hyperlipidemia type E7 8.5 Active 95990050 Problem Hypertension I10 Active 6871669 3 Problem Night sweats R61 Active 9125739 0 Problem Fibromyalgia M79.7 Active 9185413 7 Problem Major depressive disorder, recurrent episode, moderate F33.1 Active 341750441 Problem Acute left-sided low back pain with left-sided sciatica M54.42 Active 859533654 Problem Bladder spasm N32.89 Active 722259 006 Problem Gastritis without bleeding, unspecified chronicity, unspecified gastritis type K29.70 Active 146759857 Problem Bipolar 1 disorder, mixed F31.60 Acti ve 96037850 Problem Grief F43.20 Active 68652874 Problem Other chronic pain G89.29 Active 8 0668536 Problem Allergic rhinitis J30.9 Active 61 027899 Problem Hot flashes due to menopause N95.1 A ctive 051818219 Problem Ataxia R27.0 Active 45930922 Problem Hearing loss, unspecified laterality H91.90 Active 12294329 ALLERGIES No Information ENCOUNTERS Encounter Location Date Diagnosis [facility] [address] [address] Dec, [facility] [address] [address] Nov, [facility] [address] [address] Nov, [facility] [address] [address] Nov, [facility] [address] [address] October, [facility] [address] [address] October, Bitten or stung by nonvenomo us insect and other nonvenomous arthropods, initial encounter W57.XXXA and Insect bite (nonvenomous) of abdominal wall, initial encounter S30.861A [facility] [address] [address] October, Insect bite (nonvenomous) of abdominal wall, initial encounter S30.861A ; Bitten or stung by nonvenomous insect and other nonvenomous arthropods, initial encounter W57.XXXA ; Allergic rhinitis J30.9 and Low back pain M54.5 [facility] [address] [address] October, Bipolar 1 disorder, mixed F3 1.60 [facility] [address] [address] October, [facility] [address] [address] October, [facility] [address] [id number] [address] [place] [address] October, Bipolar 1 disorder, mixed F3 1.60 [facility] [address] [id number] [address] [place] [address] Sep, Bipolar 1 disorder, mixed F3 1.60 [facility] [address] [id number] [address] [place] [address] Sep, Other chronic pain G89.29 [facility] [address] [id number] [address] [place] [address] Sep, [facility] [address] [facility] [id number] [address] [place] [address] Sep, Bipolar 1 disorder, mixed F3 1.60 [facility] [address] [facility] [id number] [address] [place] [address] Sep, Allergic rhinitis J30.9 and Sciatica of left side M54.32 [facility] [address] [facility] [id number] [address] [place] [address] Sep, Bipolar 1 disorder, mixed F3 1.60 [facility] [address] [facility] [id number] [address] [place] [address] Sep, Bipolar 1 disorder, mixed F3 1.60 and Generalized anxiety disorder F41.1 [facility] [address] [facility] [id number] [address] [place] [address] Aug, [facility] [address] [facility] [id number] [address] [place] [address] Aug, Bipolar 1 disorder, mixed F3 1.60 [facility] [address] [facility] [id number] [address] [place] [address] Aug, Bipolar 1 disorder, mixed F3 1.60 [facility] [address] [facility] [id number] [address] [place] [address] Aug, [facility] [address] [facility] [id number] [address] [place] [address] Aug, Generalized anxiety disorder F41.1 [facility] [address] [facility] [id number] [address] [place] [address] Aug, Bipolar 1 disorder, mixed F3 1.60 [facility] [address] [facility] [id number] [address] [place] [address] Aug, Plantar wart of right foot B 07.0 [facility] [address] [facility] [id number] [address] [place] [address] Aug, Bipolar 1 disorder, mixed F3 1.60 [place] [address] [place] [id number] [address] [place] [address] Jul, Bipolar 1 disorder, mixed F3 1.60 [facility] [address] [place] [id number] [address] [place] [address] Jul, [facility] [address] [place] [id number] [address] [place] [address] Jul, Bipolar 1 disorder, mixed F3 1.60 [facility] [address] [place] [id number] [address] [place] [address] Jul, Generalized anxiety disorder F41.1 [facility] [address] [place] [id number] [address] [place] [address] Jul, Bipolar 1 disorder, mixed F3 1.60 [facility] [address] [place] [id number] [address] [place] [address] Jul, Acute left-sided low back pa in with left-sided sciatica M54.42 [facility] [address] [facility] [id number] [address] [place] [address] Jul, Coccydynia M53.3 [facility] [address] [facility] [id number] [address] [place] [address] Jun, Bipolar 1 disorder, mixed F3 1.60 [facility] [address] [facility] [id number] [address] [place] [address] Jun, Acute nasopharyngitis J00 [facility] [address] [place] [id number] [place] [address] Jun, Bipolar 1 disorder, mixed F3 1.60 [facility] [address] [place] [id number] [address] [place] [address] Jun, Fibromyalgia M79.7 [facility] [address] [address] Jun, Bipolar 1 disorder, mixed F3 1.60 [place] [address] [address] Jun, Fibromyalgia M79.7 and Bipol ar 1 disorder, mixed F31.60 [place] [address] [address] May, Bipolar 1 disorder, mixed F3 1.60 ; Generalized anxiety disorder F41.1 and Other mcfp (current) drug therapy Z79.899 [place] [address] [address] May, Bipolar 1 disorder, mixed F3 1.60 [facility] [address] [address] May, 2017 Cough R05 and Body aches R52 [facility] [address] [address] 10 May, 2017 Bladder spasm N32.89 and Acu te cystitis without hematuria N30.00 [place] [address] [address] 07 May, 2017 Bipolar 1 disorder, mixed F3 1.60 [place] [address] [address] 30 Apr, 2017 [facility] [address] [address] Apr, Major depressive disorder, r ecurrent episode, moderate F33.1 and Encounter for immunization Z23 [facility] [address] [address] Apr, Bipolar 1 disorder, mixed F3 1.60 [facility] [address] [place] [address] Apr, Bipolar 1 disorder, mixed F3 1.60 [facility] [address] [place] [address] Apr, Bipolar 1 disorder, mixed F3 1.60 [facility] [address] [address] Apr, Yeast vaginitis B37.3 [place] [address] [place] [address] Apr, Bipolar 1 disorder, mixed F3 1.60 [facility] [address] [place] [address] Apr, Cellulitis L03.[address] for immunization Z23 [place] [address] [address] Apr, Bipolar 1 disorder, mixed F3 1.60 [place] [address] [address] Mar, Bipolar 1 disorder, mixed F3 1.60 [place] [address] [address] Mar, Bipolar 1 disorder, mixed F3 1.60 [facility] [address] [address] Mar, Imbalance R26.89 [address] En[address] er for immunization Z23 [facility] [address] [place] [address] Mar, Generalized anxiety disorder F41.1 [facility] [address] [address] Mar, Bipolar 1 disorder, mixed F3 1.60 [place] [address] [place] [id number] [address] [place] [address] Mar, Generalized anxiety disorder F41.1 [place] [address] [place] [id number] [place] [address] Mar, Bipolar 1 disorder, mixed F3 1.60 [place] [address] [place] [id number] [place] [address] Mar, Bipolar 1 disorder, mixed F3 1.60 [place] [address] [place] [id number] [address] [place] [address] Feb, Bipolar 1 disorder, mixed F3 1.60 [place] [address] [address] Feb, Bipolar 1 disorder, mixed F3 1.60 and Generalized anxiety disorder F41.1 [place] [address] [address] Feb, Gastritis without bleeding, unspecified chronicity, unspecified gastritis type K29.70 ; Hammer toe of right foot M20.41 and Other viral warts B07.8 [place] [address] [address] Feb, Bipolar 1 disorder, mixed F3 1.60 [place] [address] [place] [id number] [address] [place] [address] Feb, Bipolar 1 disorder, mixed F3 1.60 [place] [address] [place] [id number] [address] [place] [address] Feb, Bipolar 1 disorder, mixed F3 1.60 [place] [address] [address] Jan, Encounter for screening mamm ogram for breast cancer Z12.31 ; Other viral warts B07.8 and Allergic rhinitis J30.9 [place] [address] [place] [id number] [address] [place] [address] Jan, Bipolar 1 disorder, mixed F3 1.60 [facility] [address] [facility] [id number] [address] [place] [address] Jan, Bipolar 1 disorder, mixed F3 1.60 [facility] [address] [facility] [id number] [address] [place] [address] Jan, [facility] [address] [facility] [id number] [address] [place] [address] Jan, Bipolar 1 disorder, mixed F3 1.60 [facility] [address] [facility] [id number] [address] [place] [address] Jan, Bipolar 1 disorder, mixed F3 1.60 [place] [address] [facility] [id number] [address] [place] [address] Jan, Allergic rhinitis J30.9 ; He maturia R31.9 and Colon cancer screening Z12.11 [place] [address] [place] [id number] [address] [place] [address] Dec, Bipolar 1 disorder, mixed F3 1.60 [facility] [address] [facility] [id number] [address] [place] [address] Dec, Bipolar 1 disorder, mixed F3 1.60 ; Generalized anxiety disorder F41.1 and Other mcfp (current) drug therapy Z79.899 [place] [address] [facility] [id number] [address] [place] [address] Dec, Bipolar 1 disorder, mixed F3 1.60 [facility] [address] [facility] [id number] [address] [place] [address] Dec, Bipolar 1 disorder, mixed F3 1.60 [place] [address] [place] [id number] [address] [place] [address] Dec, Bipolar 1 disorder, mixed F3 1.60 [facility] [address] [facility] [id number] [address] [place] [address] Dec, Low back pain M54.5 and Recu rrent urinary tract infection N39.0 [place] [id number] [id number] [address] [place] [address] Nov, Bipolar 1 disorder, mixed F3 1.60 [facility] [address] [id number] [address] [place] [address] Nov, Bipolar 1 disorder, mixed F3 1.60 [facility] [address] [facility] [id number] [address] [place] [address] Nov, Bipolar 1 disorder, mixed F3 1.60 [facility] [address] [id number] [address] [place] [address] Nov, Bipolar 1 disorder, mixed F3 1.60 [facility] [address] [id number] [address] [place] [address] Nov, [facility] [address] [facility] [id number] [address] [place] [address] Nov, Anesthesia of skin R20.0 ; F requent UTI N39.0 ; Tobacco abuse Z72.0 and Colon cancer screening Z12.11 [facility] [address] [facility] [id number] [address] [place] [address] Nov, Bipolar 1 disorder, mixed F3 1.60 [facility] [address] [facility] [id number] [address] [place] [address] October, Bipolar 1 disorder, mixed F3 1.60 [facility] [address] [facility] [id number] [address] [place] [address] October, Bipolar 1 disorder, mixed F3 1.60 [facility] [address] [facility] [id number] [address] [place] [address] October, Bipolar 1 disorder, mixed F3 1.60 [facility] [address] [facility] [id number] [address] [place] [address] October, Bipolar 1 disorder, mixed F3 1.60 [facility] [address] [facility] [id number] [address] [place] [address] October, Bipolar 1 disorder, mixed F3 1.60 [place] [address] [address] October, Cervicalgia M54.2 and Bipola r 1 disorder, mixed F31.60 [place] [address] [place] [id number] October, Hypertension I10 ; Hyperlipi demia, unspecified hyperlipidemia type E78.5 and Family history of thyroid disease Z83.49 [place] [address] [address] October, [place] [address] [place] [address] October, Hypertension I10 ; Hyperlipi demia, unspecified hyperlipidemia type E78.5 and Family history of thyroid problem Z83.49 [place] [address] [address] October, Bipolar 1 disorder, mixed F3 1.60 [place] [address] [address] Sep, Bipolar 1 disorder, mixed F3 1.60 [place] [address] [address] Sep, Bipolar 1 disorder, mixed F3 1.60 [place] [address] [address] Sep, Bipolar 1 disorder, mixed F3 1.60 [place] [address] [address] Sep, History of colon polyps Z86. 010 and Hematochezia K92.1 [place] [address] [address] Sep, Major depressive disorder, r ecurrent episode, moderate F33.1 [place] [address] [address] Sep, Bipolar 1 disorder, mixed F3 1.60 [facility] [address] [facility] [id number] [address] [place] [address] Aug, Hot flashes due to menopause N95.1 [facility] [address] [facility] [id number] [address] [place] [address] Aug, Bipolar 1 disorder, mixed F3 1.60 [facility] [address] [facility] [id number] [address] [place] [address] Aug, [facility] [address] [facility] [id number] [address] [place] [address] Aug, Bipolar 1 disorder, mixed F3 1.60 [facility] [address] [facility] [id number] [address] [place] [address] Aug, Bipolar 1 disorder, mixed F3 1.60 [facility] [address] [place] [id number] [address] [place] [address] Aug, Hot flashes due to menopause N95.1 ; Cervicalgia M54.2 and Ataxia R27.0 [facility] [address] [facility] [id number] [address] [place] [address] Jul, Bipolar 1 disorder, mixed F3 1.60 [facility] [address] [facility] [id number] [address] [place] [address] Jul, Bipolar 1 disorder, mixed F3 1.60 [facility] [address] [place] [id number] [address] [place] [address] Jul, Bipolar 1 disorder, mixed F3 1.60 [facility] [address] [facility] [id number] [address] [place] [address] Jul, Bipolar 1 disorder, mixed F3 1.60 [facility] [address] [facility] [id number] [address] [place] [address] Jul, Bipolar 1 disorder, mixed F3 1.60 [facility] [address] [place] [id number] [address] [place] [address] Jul, Cervicalgia M54.2 ; Tremor R 25.1 ; Hearing abnormally acute, unspecified laterality H93.239 ; Alopecia L65.9 ; Encounter for immunization Z23 and Family history of thyroid disease Z83.49 [place] [address] [place] [id number] Jul, Bipolar 1 disorder, mixed F3 1.60 [place] [address] [place] [address] Jun, [place] [address] Jun, Hearing disorder, unspecifie d laterality H93.299 [place] [address] Jun, Bipolar 1 disorder, mixed F3 1.60 [place] [address] [address] Jun, Bipolar 1 disorder, mixed F3 1.60 [place] [address] [address] Jun, Allergic rhinitis J30.9 [place] [address] [address] Jun, Bipolar 1 disorder, mixed F3 1.60 [place] [address] [address] Jun, Bipolar 1 disorder, mixed F3 1.60 [place] [address] [address] Jun, Allergic rhinitis J30.9 [place] [address] [address] Jun, Allergic rhinitis J30.9 [place] [address] [address] Jun, Bipolar 1 disorder, mixed F3 1.60 [place] [address] [place] [id number] May, Bipolar 1 disorder, mixed F3 1.60 [facility] [address] [facility] [id number] [address] [place] [address] May, Bipolar 1 disorder, mixed F3 1.60 [facility] [address] [facility] [id number] [address] [place] [address] May, [facility] [address] [facility] [id number] [address] [place] [address] May, Bipolar 1 disorder, mixed F3 1.60 [facility] [address] [facility] [id number] [address] [place] [address] May, Bipolar 1 disorder, mixed F3 1.60 [facility] [address] [facility] [id number] [address] [place] [address] May, [facility] [address] [place] [id number] [address] [place] [address] May, [facility] [address] [facility] [id number] [address] [place] [address] May, [facility] [address] [place] [id number] [address] [place] [address] May, Abdominal pain, unspecified location R10.9 [facility] [address] [place] [id number] [address] [place] [address] May, [facility] [address] [facility] [id number] [address] [place] [address] Apr, Hematuria R31.9 ; Ataxia R27 .0 and Hearing loss, unspecified laterality H91.90 [facility] [address] [facility] [id number] [address] [place] [address] Apr, Bipolar 1 disorder, mixed F3 1.60 [facility] [address] [facility] [id number] [address] [place] [address] Apr, Acute effusion of both middl e ears H65.193 [facility] [address] [place] [id number] [address] [place] [address] Apr, Hematuria R31.9 and Pyelonep hritis N12 [place] [address] [address] Apr, [place] [address] [place] [id number] [place] [address] Mar, Bipolar 1 disorder, mixed F3 1.60 [place] [address] [address] Mar, [place] [address] [address] Mar, Bipolar 1 disorder, mixed F3 1.60 [place] [address] [address] Mar, Bipolar 1 disorder, mixed F3 1.60 [place] [address] [address] Mar, Encounter for immunization Z 23 and Gastritis without bleeding, unspecified chronicity, unspecified gastritis type K29.70 [place] [address] [address] Mar, Bipolar 1 disorder, mixed F3 1.60 and Grief F43.20 [place] [address] [address] Mar, Gastritis without bleeding, unspecified chronicity, unspecified gastritis type K29.70 [place] [address] [place] [id number] [address] [place] [address] Mar, Bipolar 1 disorder, mixed F3 1.60 [place] [address] [address] Mar, Gastritis without bleeding, unspecified chronicity, unspecified gastritis type K29.70 [place] [address] [address] Mar, [place] [address] [place] [id number] [address] [place] [address] 27 Feb, 2016 Bipolar 1 disorder, mixed F3 1.60 [facility] [address] [place] [address] Feb, Bipolar 1 disorder, mixed F3 1.60 and Grief F43.20 [facility] [address] [place] [id number] [address] [place] [address] 22 Feb, 2016 Gastritis without bleeding, unspecified chronicity, unspecified gastritis type K29.70 [facility] [address] [place] [id number] [address] [place] [address] 14 Feb, 2016 Bipolar 1 disorder, mixed F3 1.60 [facility] [address] [place] [id number] [address] [place] [address] 09 Feb, 2016 Gastroesophageal reflux dise ase, esophagitis presence not specified K21.9 [facility] [address] [place] [address] Jan, Bipolar 1 disorder, mixed F3 1.60 [facility] [address] [place] [place] [id number] [address] [place] [id number] Jan, Bipolar 1 disorder, mixed F3 1.60 and Unsteady gait R26.81 [place] [address] [place] [id number] [place] [phone] Jan, Bipolar 1 disorder, mixed F3 1.60 [facility] [id number] [place] [id number] Jan, Bipolar 1 disorder, mixed F3 1.60 and 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.899 [place] [address] [place] [id number] [place], [place] [address] Jan, Bipolar 1 disorder, mixed F3 1.60 [place] [address] [place] [id number] [place] [id number] Jan, Bipolar 1 disorder, mixed F3 1.60 [place] [address] [place] [id number] [place] [id number] Jan, Bipolar 1 disorder, mixed F3 1.60 ; Grief F43.20 and Other [facility] (current) drug therapy Z79.899 [place] [id number] [facility] [id number] [address] [place] [id number] Jan, Bipolar 1 disorder, mixed F3 1.60 [place] [address] [place] [id number] [place] [id number] Dec, [place] [address] [facility] [id number] [address] [place] [id number] Dec, Bipolar 1 disorder, mixed F3 1.60 ; Vitamin D deficiency, unspecified E55.9 ; H/O allergic rhinitis Z87.09 ; Other chronic pain G89.29 and Dorsalgia, unspecified M54.9 [place] [address] [place] [id number] [address] [place] [address] Dec, [place] [address] [place] [id number] [address] [place] [address] Dec, Bipolar 1 disorder, mixed F3 1.60 [place] [address] [place] [id number] [address] [place] [address] Dec, Major depressive disorder, r ecurrent episode, moderate F33.1 [place] [address] [place] [id number] [address] [place] [address] Dec, Major depressive disorder, r ecurrent episode, moderate F33.1 [place] [address] [facility] [id number] [address] [place] [address] Nov, [place] [address] [place] [id number] [address] [place] [address] Nov, Bipolar 1 disorder, mixed F3 1.60 [place] [address] [facility] [id number] [address] [place] [address] Nov, Major depressive disorder, r ecurrent episode, moderate F33.1 [place] [address] [place] [id number] [address] [place] [address] Nov, Cervicalgia M54.2 ; Arthralg ia of hip, unspecified laterality M25.559 ; Allergic rhinitis J30.9 and Hormone replacement therapy Z79.890 [facility] [address] [facility] [id number] [address] [place] [address] 13 Nov, 2015 Other seasonal allergic rhin itis J30.2 [facility] [address] [facility] [id number] [address] [place] [address] October, Major depressive disorder, r ecurrent episode, moderate F33.1 [place] [address] [facility] [id number] [address] [place] [address] October, Major depressive disorder, r ecurrent episode, moderate F33.1 and Arthralgia of hip, unspecified laterality M25.559 [place] [id number] [place] [address] October, Grief F43.20 ; Hypertension I10 ; Hyperlipidemia, unspecified hyperlipidemia type E78.5 ; Other chronic pain G89.29 and Allergic rhinitis, unspecified allergic rhinitis type J30.9 [place] [address] [facility] [id number] [address] [place] [address] October, Major depressive disorder, r ecurrent episode, moderate F33.1 [place] [address] [place] [id number] [address] [place] [address] Sep, Major depressive disorder, r ecurrent episode, moderate F33.1 [place] [address] [facility] [id number] [address] [place] [address] Sep, [place] [address] [place] [id number] [place] [address] Sep, Major depressive disorder, r ecurrent episode, moderate F33.1 [place] [address] [place] [id number] [address] [place] [address] Sep, Grief F43.20 [place] [address] [facility] [id number] [address] [place] [address] Aug, Major depressive disorder, r ecurrent episode, moderate F33.1 [place] [address] [place] [id number] [address] [place] [address] Aug, Bipolar 1 disorder, mixed F3 1.60 [place] [address] [place] [id number] [address] [place] [address] Aug, Allergic rhinitis J30.9 ; Ce rvicalgia M54.2 and Low back pain M54.5 [place] [address] [facility] [id number] [address] [place] [address] Aug, Major depressive disorder, r ecurrent episode, moderate F33.1 [facility] [address] [facility] [id number] [address] [place] [address] Aug, Sinusitis J32.9 and Tobacco 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 [place] [address] [place] [address] Aug, [place] [id number] [place] [address] Aug, Depressive disorder, not els ewhere classified F32.9 ; Hormone replacement therapy Z79.[address] scan, head R93.0 [place] [address] [place] [id number] [address] [place] [address] Aug, Major depressive disorder, r ecurrent episode, moderate F33.1 [place] [id number] [place] [address] Jul, Major depressive disorder, r ecurrent episode, moderate F33.1 [place] [address] [place] [id number] [address] [place] [address] Jul, Abdominal pain R10.9 and Hyp ertension I10 [place] [address] [place] [id number] [address] [place] [address] Jul, [place] [address] [place] [id number] [address] [place] [address] 05 Jul, 2015 Major depressive disorder, r ecurrent episode, moderate F33.1 [facility] [address] [facility] [id number] [address] [place] [address] 04 Jul, 2015 [facility] [address] [place] [id number] [address] [place] [address] Jul, [place] [address] [facility] [id number] [address] [place] [address] Jun, [place] [address] [place] [id number] [address] [place] [address] Jun, Depressive disorder, not els ewhere classified F32.9 [place] [address] [facility] [id number] [address] [place] [address] Jun, [place] [address] [place] [id number] [address] [place] [address] Jun, [place] [address] [place] [id number] [address] [place] [address] Jun, Arthralgia of hip, unspecifi ed laterality M25.559 ; Bruising, spontaneous R23.3 and Night sweats R61 [place] [address] [facility] [id number] [address] [place] [address] Jun, [place] [address] [place] [id number] [address] [place] [address] Jun, [place] [address] [place] [id number] [address] [place] [address] May, [place] [address] [place] [id number] [address] [place] [address] May, Myalgia M79.1 and Screening, lipid Z13.220 [place] [address] [place] [id number] [address] [place] [address] 10 Apr, 2015 Status post cervical spinal fusion Z98.1 ; Fibromyalgia M79.7 and Unsteady gait R26.81 [facility] [address] [id number] [address] [place] [address] Nov, [facility] [address] [id number] [address] [place] [address] Nov, [facility] [address] [id number] [address] [place] [address] October, [facility] [address] [id number] [address] [place] [address] October, [facility] [address] [id number] [address] [place] [address] October, [facility] [address] [id number] [address] [place] [address] October, [facility] [address] [facility] [id number] [address] [place] [address] October, [facility] [address] [facility] [id number] [address] [place] [address] October, Dysuria 788.1 ; Nausea 787.0 2 and Urinary tract infection 599.0 [facility] [address] [id number] [address] [place] [address] Sep, [facility] [address] [facility] [id number] [address] [place] [address] Sep, [facility] [address] [id number] [address] [place] [address] Aug, [facility] [address] [id number] [address] [place] [address] Aug, [facility] [address] [id number] [address] [place] [address] Aug, [facility] [address] [id number] [address] [place] [address] Aug, [facility] [address] [id number] [address] [place] [address] 23 Aug, 2014 [facility] [address] [id number] [facility] [address] 19 Aug, 2014 [facility] [address] [id number] [facility] [place] [address] 19 Aug, 2014 [facility] [address] [id number] [address] [place] [address], [place] [address] 19 Aug, 2014 [facility] [address] [id number] [address] [place] [address], [place] [address] 19 Aug, 2014 [facility] [address] [id number] [address] [place] [address], [place] [address] 18 Aug, 2014 [facility] [address] [id number] [address] [place] [address], [place] [address] 18 Aug, 2014 [facility] [address] [id number] [address] [place] [address], [place] [address] 13 Aug, 2014 [facility] [address] [id number] [address] [place] [address], [place] [address] 13 Aug, 2014 [facility] [address] [id number] [address] [place] [address], [place] [address] 11 Aug, 2014 [facility] [address] [id number] [address] [place] [address], [place] [address] 11 Aug, 2014 [facility] [address] [id number] [address] [place] [address], [place] [address] 06 Aug, 2014 [facility] [address] [id number] [address] [place] [address], [place] [address] 06 Aug, 2014 [facility] [address] [id number] [address] [place] [address], [place] [address] 05 Aug, 2014 [facility] [address] [id number] [address] [place] [address], [place] [address] 05 Aug, 2014 [facility] [address] [id number] [address] [place] [address], [place] [address] 04 Aug, 2014 [facility] [address] [id number] [address] [place] [address], [place] [address] Aug, [facility] [address] [id number] [address] [place] [address], [place] [address] Aug, [facility] [address] [id number] [address] [place] [address], [place] [address] Jul, 2014 [facility] [address] [id number] [address] [place] [address], [place] [address] Jul, 2014 [facility] [address] [id number] [address] [place] [address], [place] [address] Jul, 2014 [facility] [address] [id number] [address] [place] [address], [place] [address] Jul, 2014 [facility] [address] [id number] [address] [place] [address], [place] [address] Jul, 2014 [facility] [address] [id number] [address] [place] [address], [place] [address] Jul, 2014 [facility] [address] [id number] [address] [place] [address], [place] [address] Jul, [facility] [address] [id number] [address] [place] [address], [place] [address] Jul, 2014 [facility] [address] [id number] [address] [place] [address] Jul, [facility] [address] [id number] [address] [place] [address] Jul, 2014 [facility] [address] [id number] [address] [place] [address], [place] [address] Jul, 2014 [facility] [address] [id number] [address] [place] [address], [place] [address] Jul, 2014 [facility] [address] [id number] [address] [place] [address] Jul, 2014 [facility] [address] [id number] [address] [place] [address] Jul, [facility] [address] [id number] [address] [place] [address], [place] [address] Jun, [facility] [address] [id number] [address] [place] [address], [place] [address] Jun, [facility] [address] [id number] [address] [place] [address], [place] [address] Jun, [facility] [address] [id number] [address] [place] [address], [place] [address] Jun, [facility] [address] [id number] [address] [place] [address], [place] [address] Jun, [facility] [address] [id number] [address] [place] [address], [place] [address] Jun, [facility] [address] [id number] [address] [place] [address], [place] [address] May, [facility] [address] [id number] [address] [place] [address], [place] [address] May, [facility] [address] [id number] [address] [place] [address], [place] [address] May, [facility] [address] [id number] [address] [place] [address], [place] [address] May, [facility] [address] [id number] [address] [place] [address], [place] [address] May, [facility] [address] [id number] [address] [place] [address], [place] [address] May, [facility] [address] [id number] [address] [place] [address], [place] [address] Apr, [facility] [address] [id number] [address] [place] [address], [place] [address] Apr, [facility] [address] [id number] [address] [place] [address], [place] [address] Apr, [facility] [address] [id number] [address] [place] [address], [place] [address] Apr, [facility] [address] [id number] [address] [place] [address], [place] [address] Apr, [facility] [address] [id number] [address] [place] [address], [place] [address] Apr, [facility] [address] [id number] [address] [place] [address], [place] [address] Mar, [facility] [address] [id number] [address] [place] [address], [place] [address] Mar, [facility] [address] [id number] [address] [place] [address], [place] [address] Mar, [facility] [address] [id number] [address] [place] [address], [place] [address] Mar, [facility] [address] [id number] [address] [place] [address], [place] [address] Mar, [facility] [address] [id number] [address] [place] [address], [place] [address] Mar, [facility] [address] [id number] [address] [place] [address], [place] [address] Mar, [facility] [address] [id number] [address] [place] [address], [place] [address] Mar, [facility] [address] [id number] [address] [place] [address], [place] [address] Mar, [facility] [address] [id number] [address] [place] [address], [place] [address] Mar, [facility] [address] [id number] [address] [place] [address], [place] [address] Mar, [facility] [address] [id number] [address] [place] [address], [place] [address] Mar, [facility] [address] [id number] [address] [place] [address], [place] [address] Feb, [facility] [address] [id number] [facility] [place] [address] 29 Feb, 2014 [facility] [address] [id number] [address] [place] [address], [place] [address] Feb, [facility] [address] [id number] [address] [place] [address], [place] [address] Feb, [facility] [address] [id number] [address] [place] [address], [place] [address] Feb, [facility] [address] [id number] [address] [place] [address], [place] [address] Feb, [facility] [address] [id number] [address] [place] [address], [place] [address] Feb, [facility] [address] [id number] [address] [place] [address], [place] [address] Jan, [facility] [address] [id number] [address] [place] [address], [place] [address] Jan, [facility] [address] [id number] [address] [place] [address], [place] [address] Jan, [facility] [address] [id number] [address] [place] [address], [place] [address] Dec, [facility] [address] [id number] [address] [place] [address], [place] [address] Dec, [facility] [address] [id number] [address] [place] [address], [place] [address] Dec, [facility] [address] [id number] [address] [place] [address], [place] [address] Dec, [facility] [address] [id number] [address] [place] [address], [place] [address] Sep, [facility] [address] [id number] [address] [place] [address], [place] [address] Sep, [facility] [address] [id number] [address] [place] [address], [place] [address] Sep, [facility] [address] [id number] [address] [place] [address], [place] [address] Sep, [facility] [address] [id number] [address] [place] [address], [place] [address] Sep, [facility] [address] [id number] [address] [place] [address], [place] [address] Sep, [facility] [address] [id number] [address] [place] [address], [place] [address] Sep, [facility] [address] [id number] [address] [place] [address], [place] [address] Sep, [facility] [address] [id number] [address] [place] [address], [place] [address] Aug, [facility] [address] [id number] [address] [place] [address], [place] [address] Aug, [facility] [address] [id number] [address] [place] [address], [place] [address] May, [facility] [address] [id number] [address] [place] [address], [place] [address] May, [facility] [address] [id number] [address] [place] [address], [place] [address] Apr, [facility] [address] [id number] [address] [place] [address], [place] [address] Apr, [facility] [address] [id number] [address] [place] [address], [place] [address] Apr, [facility] [address] [id number] [address] [place] [address], [place] [address] Apr, [facility] [address] [id number] [address] [place] [address], [place] [address] Apr, [facility] [address] [id number] [address] [place] [address], [place] [address] Apr, [facility] [address] [id number] [address] [place] [address], [place] [address] 18 May, 2012 [facility] [address] [id number] [address] [place] [address], [place] [address] 18 May, 2012 [facility] [address] [id number] [address] [place] [address], [place] [address] 15 May, 2012 [facility] [address] [id number] [address] [place] [address], [place] [address] 15 May, 2012 [facility] [address] [id number] [address] [place] [address], [place] [address] 13 May, 2012 [facility] [address] [id number] [address] [place] [address], [place] [address] 13 May, 2012 [facility] [address] [id number] [address] [place] [address], [place] [address] 13 Apr, 2012 [facility] [address] [id number] [address] [place] [address], [place] [address] 13 Apr, 2012 [facility] [address] [id number] [address] [place] [address], [place] [address] Apr, [facility] [address] [id number] [address] [place] [address], [place] [address] Apr, [facility] [address] [id number] [address] [place] [address], [place] [address] Apr, [facility] [address] [id number] [address] [place] [address], [place] [address] Apr, [facility] [address] [id number] [address] [place] [address], [place] [address] Apr, [facility] [address] [id number] [address] [place] [address], [place] [address] Apr, [facility] [address] [id number] [address] [place] [address], [place] [address] 07 Apr, 2012 [facility] [address] [id number] [address] [place] [address], [place] [address] Apr, [facility] [address] [id number] [address] [place] [address], [place] [address] Mar, [facility] [address] [id number] [address] [place] [address], [place] [address] Mar, [facility] [address] [id number] [address] [place] [address], [place] [address] Mar, [facility] [address] [id number] [address] [place] [address], [place] [address] Mar, [facility] [address] [id number] [address] [place] [address], [place] [address] Mar, [facility] [address] [id number] [address] [place] [address], [place] [address] Mar, [facility] [address] [id number] [address] [place] [address], [place] [address] Mar, [facility] [address] [id number] [address] [place] [address], [place] [address] Mar, [facility] [address] [id number] [address] [place] [address], [place] [address] Mar, [facility] [address] [id number] [address] [place] [address], [place] [address] Feb, [facility] [address] [id number] [address] [place] [id number] 16 Feb, 2012 [facility] [address] [id number] [address] [place] [id number] Feb, [facility] [address] [id number] [address] [place] [address], [place] [address] Jan, [facility] [address] [id number] [address] [place] [address], [place] [address] Jan, [facility] [address] [id number] [address] [place] [address], [place] [address] Jan, [facility] [address] [id number] [address] [place] [address], [place] [address] 18 Jan, 2012 [facility] [address] [id number] [address] [place] [address], [place] [address] Jan, [facility] [address] [id number] [address] [place] [address], [place] [address] Jan, [facility] [address] [id number] [address] [place] [address], [place] [address] 16 Jan, 2012 [facility] [address] [id number] [address] [place] [address], [place] [address] Jan, [facility] [address] [id number] [address] [place] [address], [place] [address] Jan, [facility] [address] [id number] [address] [place] [address], [place] [address] Jan, [facility] [address] [id number] [address] [place] [address], [place] [address] Dec, [facility] [address] [id number] [address] [place] [address], [place] [address] Dec, [facility] [address] [id number] [address] [place] [address], [place] [address] Dec, [facility] [address] [id number] [address] [place] [address], [place] [address] Dec, [facility] [address] [id number] [address] [place] [address], [place] [address] Nov, [facility] [address] [id number] [address] [place] [address], [place] [address] Nov, [facility] [address] [id number] [address] [place] [address], [place] [address] Nov, [facility] [address] [id number] [address] [place] [address], [place] [phone] October, [facility] [address] [id number] [address] [place] [address], [place] [phone] October, [facility] [address] [id number] [address] [place] [id number] October, [facility] [address] [id number] [address] [place] [phone] October, [facility] [address] [id number] [address] [place] [phone] October, [facility] [address] [id number] [address] [place] [phone] October, [facility] [address] [id number] [address] [place] [phone] Aug, [facility] [address] [id number] [address] [place] [id number] Mar, [facility] [address] [id number] [address] [place] [phone] Nov, [facility] [address] [id number] [address] [place] [id number] May, [facility] [address] [id number] [address] [place] [phone] May, [facility] [address] [id number] [address] [place] [phone] Apr, [facility] [address] [id number] [address] [place] [phone] Mar, [facility] [address] [id number] [address] [place] [phone] Mar, IMMUNIZATIONS No Known Immunizations SOCIAL HISTORY Never Assessed REASON FOR VISIT BH f/u PLAN OF CARE Activity Details Follow Up 1 Week Reason:BH F/U VITAL SIGNS MEDICATIONS Unknown Medications RESULTS No Results PROCEDURES Procedure Date Ordered Result Body Site [facility] VISIT MENTAL HEALTH ESTAB PT Apr 19, 2017 Psychotherapy, patient &/family, 45 minutes, established patient Apr 19, 2017 INSTRUCTIONS MEDICATIONS ADMINISTERED No Known Medications MEDICAL (GENERAL) HISTORY Type Description Date Medical History Severe spinal stenosis throu gh cervical spine CT and MRI done 10/2014 at [facility] with [facility] at [facility] Medical History Migraine BEAR Evaluated and tx [...]
--- OUTSIDE RECORDS SUMMARY | 2019-06-19 05:49 | XMS REPORT ---
Author Author Sydnie MORTON Organization [facility] Address [address] [place] [address] Care Team Providers Care Technologist Development Name Role Phone JOHN MORTON Unavailable PROBLEMS Type Condition ICD9-CM Code TIQ10-IY Code Onset Dates Condition S tatus SNOMED Code Problem Hormone replacement therapy Z79.890 Ac tive 746597057 Problem Abnormal CT scan, head R93.0 Active 958632996 Problem Sensorineural hearing loss (SNHL) of both ears H90 .3 Active 844469534 Problem History of colon polyps Z86.010 Active 971581491 Problem Bruising, spontaneous R23.3 Active 874979043 Problem Generalized anxiety disorder F41.1 A ctive 55004959 Problem Arthralgia of hip, unspecified laterality M25.559 Active 98311237 Problem Hematuria, unspecified type R31.9 Ac tive 53876096 Problem Imbalance R26.89 Active 554544123 Problem Hammer toe of right foot M20.41 Activ e 515521354 Problem Plantar wart of right foot B07.0 Act mitchell [id number] Problem Sciatica of left side M54.32 Active 62972574 Problem Hyperlipidemia, unspecified hyperlipidemia type E7 8.5 Active 93096097 Problem Hypertension I10 Active 3705629 3 Problem Night sweats R61 Active 8967050 0 Problem Fibromyalgia M79.7 Active 7276007 7 Problem Major depressive disorder, recurrent episode, moderate F33.1 Active 364135788 Problem Acute left-sided low back pain with left-sided sciatica M54.42 Active 444210472 Problem Bladder spasm N32.89 Active 728650 006 Problem Gastritis without bleeding, unspecified chronicity, unspecified gastritis type K29.70 Active 552422240 Problem Bipolar 1 disorder, mixed F31.60 Acti ve 08743636 Problem Grief F43.20 Active 48853645 Problem Other chronic pain G89.29 Active 8 3458929 Problem Allergic rhinitis J30.9 Active 61 380074 Problem Hot flashes due to menopause N95.1 A ctive 738549856 Problem Ataxia R27.0 Active 92256008 Problem Hearing loss, unspecified laterality H91.90 Active 04428628 ALLERGIES No Information ENCOUNTERS Encounter Location Date Diagnosis [facility] [address] [facility] [id number] [address] [place] [id number] Dec, [facility] [address] [facility] [id number] [address] [place] [address] Nov, [facility] [address] [facility] [id number] [address] [place] [address] October, [facility] [address] [facility] [id number] [address] [place] [address] October, [facility] [address] [facility] [id number] [address] [place] [address] October, [facility] [address] [facility] [id number] [address] [place] [address] October, [facility] [address] [facility] [id number] [address] [place] [address] October, Bipolar 1 disorder, mixed F3 1.60 [facility] [address] [facility] [id number] [address] [place] [address] Sep, Bipolar 1 disorder, mixed F3 1.60 [facility] [address] [facility] [id number] [address] [place] [address] Sep, Other chronic pain G89.29 [facility] [address] [facility] [id number] [address] [place] [address] Sep, [facility] [address] [facility] [id number] [address] [place] [address] Sep, Bipolar 1 disorder, mixed F3 1.60 [facility] [address] [facility] [id number] [address] [place] [address] Sep, Allergic rhinitis J30.9 and Sciatica of left side M54.32 [facility] [address] [facility] [id number] [address] [place] [address] Sep, Bipolar 1 disorder, mixed F3 1.60 [facility] [address] [facility] [id number] [address] [place] [address] Sep, Bipolar 1 disorder, mixed F3 1.60 and Generalized anxiety disorder F41.1 [facility] [address] [place] [id number] [address] [place] [address] Aug, [facility] [address] [facility] [id number] [address] [place] [address] Aug, Bipolar 1 disorder, mixed F3 1.60 [facility] [address] [facility] [id number] [address] [place] [address] Aug, Bipolar 1 disorder, mixed F3 1.60 [facility] [address] [place] [id number] [address] [place] [address] Aug, [facility] [address] [place] [id number] [address] [place] [address] Aug, Generalized anxiety disorder F41.1 [facility] [address] [facility] [id number] [address] [place] [address] Aug, Bipolar 1 disorder, mixed F3 1.60 [facility] [address] [place] [id number] [address] [place] [address] Aug, Plantar wart of right foot B 07.0 [facility] [address] [facility] [id number] [address] [place] [address] Aug, Bipolar 1 disorder, mixed F3 1.60 [facility] [address] [facility] [id number] [address] [place] [address] Jul, Bipolar 1 disorder, mixed F3 1.60 [facility] [address] [place] [id number] [address] [place] [address] Jul, [facility] [address] [place] [id number] [address] [place] [address] 14 Jul, 2017 Bipolar 1 disorder, mixed F3 1.60 [facility] [address] [facility] [id number] [address] [place] [address] 09 Jul, 2017 Generalized anxiety disorder F41.1 [facility] [address] [place] [id number] [address] [place] [id number] 07 Jul, 2017 Bipolar 1 disorder, mixed F3 1.60 [facility] [address] [place] [id number] [address] [place] [address] Jul, Acute left-sided low back pa in with left-sided sciatica M54.42 [facility] [address] [place] [id number] [address] [place] [id number] 05 Jul, 2017 Coccydynia M53.3 [facility] [address] [place] [id number] [address] [place] [address] Jun, Bipolar 1 disorder, mixed F3 1.60 [facility] [address] [place] [id number] [address] [place] [address] Jun, Acute nasopharyngitis J00 [facility] [address] [place] [id number] [place] [address] Jun, Bipolar 1 disorder, mixed F3 1.60 [facility] [address] [place] [id number] [address] [place] [address] Jun, Fibromyalgia M79.7 [facility] [address] [place] [id number] [address] [place] [address] Jun, Bipolar 1 disorder, mixed F3 1.60 [facility] [address] [place] [id number] [address] [place] [address] Jun, Fibromyalgia M79.7 and Bipol ar 1 disorder, mixed F31.60 [facility] [address] [place] [id number] [address] [place] [address] May, Bipolar 1 disorder, mixed F3 1.60 ; Generalized anxiety disorder F41.1 and Other penitentiary (current) drug therapy Z79.899 [place] [address] [place] [id number] [address] [place] [address] May, Bipolar 1 disorder, mixed F3 1.60 [facility] [address] [place] [id number] [address] [place] [address] 14 May, 2017 Cough R05 and Body aches R52 [facility] [address] [place] [id number] [place] [address] 10 May, 2017 Bladder spasm N32.89 and Acu te cystitis without hematuria N30.00 [place] [address] [address] 07 May, 2017 Bipolar 1 disorder, mixed F3 1.60 [place] [address] [address] 30 Apr, 2017 [place] [address] [address] Apr, Major depressive disorder, r ecurrent episode, moderate F33.1 and Encounter for immunization Z23 [place] [address] [address] Apr, Bipolar 1 disorder, mixed F3 1.60 [place] [address] [address] Apr, Bipolar 1 disorder, mixed F3 1.60 [place] [address] [address] 16 Apr, 2017 Bipolar 1 disorder, mixed F3 1.60 [place] [address] [address] 13 Apr, 2017 Yeast vaginitis B37.3 [place] [address] [place] [id number] [place] [phone] 09 Apr, 2017 Bipolar 1 disorder, mixed F3 1.60 [facility] [address] [place] [id number] [address] [place] [address] 07 Apr, 2017 [address]03[address] for immunization Z23 [facility] [address] [place] [id number] [address] [place] [address] Apr, Bipolar 1 disorder, mixed F3 1.60 [facility] [address] [place] [id number] [address] [place] [address] Mar, Bipolar 1 disorder, mixed F3 1.60 [facility] [address] [place] [id number] [address] [place], [place] [id number] Mar, Bipolar 1 disorder, mixed F3 1.60 [place] [address] [place] [id number] [address] [place] [id number] Mar, Imbalance R26.89 and Encount er for immunization Z23 [place] [address] [place] [id number] [address] [place] [address] Mar, Generalized anxiety disorder F41.1 [place] [address] [place] [id number] [address] [place] [address] Mar, Bipolar 1 disorder, mixed F3 1.60 [place] [address] [place] [id number] [address] [place] [address] Mar, Generalized anxiety disorder F41.1 [place] [address] [place] [id number] [place] [address] Mar, Bipolar 1 disorder, mixed F3 1.60 [place] [address] [place] [id number] [address] [place] [address] Mar, Bipolar 1 disorder, mixed F3 1.60 [place] [address] [place] [id number] [address] [place] [address] Feb, Bipolar 1 disorder, mixed F3 1.60 [facility] [address] [place] [id number] [address] [place] [address] Feb, Bipolar 1 disorder, mixed F3 1.60 and Generalized anxiety disorder F41.1 [facility] [address] [place] [id number] [address] [place] [address] Feb, Gastritis without bleeding, unspecified chronicity, unspecified gastritis type K29.70 ; Hammer toe of right foot M20.41 and Other viral warts B07.8 [place] [address] [facility] [id number] [address] [place] [address] Feb, Bipolar 1 disorder, mixed F3 1.60 [place] [address] [facility] [id number] [address] [place] [phone] Feb, Bipolar 1 disorder, mixed F3 1.60 [place] [address] [facility] [id number] [address] [place] [phone] 05 Feb, 2017 Bipolar 1 disorder, mixed F3 1.60 [place] [address] [facility] [id number] [address] [place] [address] Jan, Encounter for screening mamm ogram for breast cancer Z12.31 ; Other viral warts B07.8 and Allergic rhinitis J30.9 [place] [address] [facility] [id number] [address] [place] [address] Jan, Bipolar 1 disorder, mixed F3 1.60 [place] [address] [facility] [id number] [address] [place] [address] Jan, Bipolar 1 disorder, mixed F3 1.60 [place] [address] [facility] [id number] [address] [place] [address] Jan, [place] [address] [facility] [id number] [address] [place] [address] Jan, Bipolar 1 disorder, mixed F3 1.60 [place] [address] [facility] [id number] [address] [place] [address] Jan, Bipolar 1 disorder, mixed F3 1.60 [place] [address] [facility] [id number] [address] [place] [address] Jan, Allergic rhinitis J30.9 ; He maturia R31.9 and Colon cancer screening Z12.11 [place] [address] [facility] [id number] [address] [place] [address] Dec, Bipolar 1 disorder, mixed F3 1.60 [facility] [address] [id number] [address] [place] [address] Dec, Bipolar 1 disorder, mixed F3 1.60 ; Generalized anxiety disorder F41.1 and 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 Z79.899 [facility] [address] [facility] [id number] [address] [place] [address] Dec, Bipolar 1 disorder, mixed F3 1.60 [facility] [address] [id number] [address] [place] [address] Dec, Bipolar 1 disorder, mixed F3 1.60 [facility] [address] [facility] [id number] [address] [place] [address] Dec, Bipolar 1 disorder, mixed F3 1.60 [facility] [address] [facility] [id number] [address] [place] [address] Dec, Low back pain M54.5 and Recu rrent urinary tract infection N39.0 [facility] [address] [id number] [address] [place] [address] Nov, Bipolar 1 disorder, mixed F3 1.60 [facility] [address] [facility] [id number] [address] [place] [address] Nov, Bipolar 1 disorder, mixed F3 1.60 [facility] [address] [facility] [id number] [address] [place] [address] Nov, Bipolar 1 disorder, mixed F3 1.60 [facility] [address] [id number] [address] [place] [address] Nov, Bipolar 1 disorder, mixed F3 1.60 [facility] [address] [facility] [id number] [address] [place] [address] Nov, [facility] [address] [facility] [id number] [address] [place] [address] Nov, Anesthesia of skin R20.0 ; F requent UTI N39.0 ; Tobacco abuse Z72.0 and Colon cancer screening Z12.11 [facility] [address] [place] [id number] [address] [place] [address] Nov, Bipolar 1 disorder, mixed F3 1.60 [facility] [address] [place] [id number] [address] [place] [address] October, Bipolar 1 disorder, mixed F3 1.60 [facility] [address] [place] [id number] [address] [place] [address] October, Bipolar 1 disorder, mixed F3 1.60 [place] [address] [place] [id number] [address] [place] [address] October, Bipolar 1 disorder, mixed F3 1.60 [place] [address] [place] [id number] [address] [place] [address] October, Bipolar 1 disorder, mixed F3 1.60 [place] [address] [address] October, Bipolar 1 disorder, mixed F3 1.60 [place] [address] [place] [id number] [address] [place] [address] October, Cervicalgia M54.2 and Bipola r 1 disorder, mixed F31.60 [place] [address] [place] [id number] [address] [place] [address] October, Hypertension I10 ; Hyperlipi demia, unspecified hyperlipidemia type E78.5 and Family history of thyroid disease Z83.49 [place] [address] [place] [id number] [address] [place] [address] October, [place] [address] [place] [id number] [address] [place] [address] October, Hypertension I10 ; Hyperlipi demia, unspecified hyperlipidemia type E78.5 and Family history of thyroid problem Z83.49 [place] [address] [place] [id number] [address] [place] [address] October, Bipolar 1 disorder, mixed F3 1.60 [facility] [address] [facility] [id number] [address] [place] [address] Sep, Bipolar 1 disorder, mixed F3 1.60 [facility] [address] [facility] [id number] [address] [place] [address] Sep, Bipolar 1 disorder, mixed F3 1.60 [facility] [address] [place] [id number] [address] [place] [address] Sep, Bipolar 1 disorder, mixed F3 1.60 [place] [address] [place] [id number] [address] [place] [address] Sep, History of colon polyps Z86. 010 and Hematochezia K92.1 [place] [address] [place] [id number] [address] [place] [address] Sep, Major depressive disorder, r ecurrent episode, moderate F33.1 [place] [address] [place] [id number] [address] [place] [address] Sep, Bipolar 1 disorder, mixed F3 1.60 [place] [address] [place] [id number] [address] [place] [address] Aug, Hot flashes due to menopause N95.1 [facility] [address] [place] [id number] [address] [place] [address] Aug, Bipolar 1 disorder, mixed F3 1.60 [place] [address] [place] [id number] [address] [place] [address] Aug, [facility] [address] [facility] [id number] [address] [place] [address] Aug, Bipolar 1 disorder, mixed F3 1.60 [place] [address] [place] [id number] [address] [place] [address] Aug, Bipolar 1 disorder, mixed F3 1.60 [facility] [address] [place] [id number] [address] [place] [address] Aug, Hot flashes due to menopause N95.1 ; Cervicalgia M54.2 and Ataxia R27.0 [place] [address] [address] Jul, Bipolar 1 disorder, mixed F3 1.60 [place] [address] [place] 75[address] Jul, Bipolar 1 disorder, mixed F3 1.60 [place] [address] Jul, Bipolar 1 disorder, mixed F3 1.60 [place] [address] [address] Jul, Bipolar 1 disorder, mixed F3 1.60 [place] [address] Jul, Bipolar 1 disorder, mixed F3 1.60 [place] [address] [address] Jul, Cervicalgia M54.2 ; Tremor R 25.1 ; Hearing abnormally acute, unspecified laterality H93.239 ; Alopecia L65.9 ; Encounter for immunization Z23 and Family history of thyroid disease Z83.49 [place] [address] [address] Jul, Bipolar 1 disorder, mixed F3 1.60 [place] [address] [address] Jun, [place] [address] [address] Jun, Hearing disorder, unspecifie d laterality H93.299 [place] [address] [address] Jun, Bipolar 1 disorder, mixed F3 1.60 [place] [address] [address] Jun, Bipolar 1 disorder, mixed F3 1.60 [facility] [address] [id number] [address] [place] [address] Jun, Allergic rhinitis J30.9 [facility] [address] [id number] [address] [place] [address] Jun, Bipolar 1 disorder, mixed F3 1.60 [facility] [address] [id number] [address] [place] [address] Jun, Bipolar 1 disorder, mixed F3 1.60 [facility] [address] [id number] [address] [place] [address] Jun, Allergic rhinitis J30.9 [facility] [address] [id number] [address] [place] [address] Jun, Allergic rhinitis J30.9 [facility] [address] [facility] [id number] [address] [place] [address] Jun, Bipolar 1 disorder, mixed F3 1.60 [facility] [address] [id number] [address] [place] [address] May, Bipolar 1 disorder, mixed F3 1.60 [facility] [address] [id number] [address] [place] [address] May, Bipolar 1 disorder, mixed F3 1.60 [facility] [address] [facility] [id number] [address] [place] [address] May, [facility] [address] [facility] [id number] [address] [place] [id number] May, Bipolar 1 disorder, mixed F3 1.60 [facility] [address] [id number] [address] [place] [address] May, Bipolar 1 disorder, mixed F3 1.60 [facility] [address] [facility] [id number] [address] [place] [address] May, [facility] [address] [facility] [id number] [address] [place] [address] May, [facility] [address] [facility] [id number] [address] [place] [address] May, [facility] [address] [place] [id number] [address] [place] [address] May, Abdominal pain, unspecified location R10.9 [facility] [address] [facility] [id number] [address] [place] [address] May, [facility] [address] [place] [id number] [address] [place] [address] Apr, Hematuria R31.9 ; Ataxia R27 .0 and Hearing loss, unspecified laterality H91.90 [facility] [address] [place] [id number] [address] [place] [address] Apr, Bipolar 1 disorder, mixed F3 1.60 [facility] [address] [place] [id number] [address] [place] [address] Apr, Acute effusion of both middl e ears H65.193 [facility] [address] [facility] [id number] [address] [place] [address] Apr, Hematuria R31.9 and Pyelonep hritis N12 [facility] [id number] [address] [place] [id number] Apr, [facility] [id number] [address] [place] [id number] Mar, Bipolar 1 disorder, mixed F3 1.60 [facility] [id number] [address] [place] [id number] Mar, [facility] [address] [facility] [id number] [address] [place] [id number] Mar, Bipolar 1 disorder, mixed F3 1.60 [facility] [id number] [address] [place] [id number] Mar, Bipolar 1 disorder, mixed F3 1.60 [facility] [id number] [address] [place] [id number] Mar, Encounter for immunization Z 23 and Gastritis without bleeding, unspecified chronicity, unspecified gastritis type K29.70 [place] [address] [place] [place] [id number] 05 Mar, 2016 Bipolar 1 disorder, mixed F3 1.60 and Grief F43.20 [place] [address] Mar, Gastritis without bleeding, unspecified chronicity, unspecified gastritis type K29.70 [place] [address] Mar, Bipolar 1 disorder, mixed F3 1.60 [place] [address] Mar, Gastritis without bleeding, unspecified chronicity, unspecified gastritis type K29.70 [place] [address] [place] [id number] Mar, [place] [address] [id number] 27 Feb, 2016 Bipolar 1 disorder, mixed F3 1.60 [place] [address] [place] [id number] Feb, Bipolar 1 disorder, mixed F3 1.60 and Grief F43.20 [place] [address] [place] [id number] Feb, Gastritis without bleeding, unspecified chronicity, unspecified gastritis type K29.70 [place] [address] [id number] 14 Feb, 2016 Bipolar 1 disorder, mixed F3 1.60 [facility] [address] [id number] 09 Feb, 2016 Gastroesophageal reflux dise ase, esophagitis presence not specified K21.9 [place] [address] [place] [id number] Jan, Bipolar 1 disorder, mixed F3 1.60 [facility] [address] [facility] [id number] [address] [place] [address] Jan, Bipolar 1 disorder, mixed F3 1.60 and Unsteady gait R26.81 [facility] [address] [facility] [id number] [address] [place] [address] Jan, Bipolar 1 disorder, mixed F3 1.60 [facility] [address] [facility] [id number] [address] [place] [address] Jan, Bipolar 1 disorder, mixed F3 1.60 and Other penitentiary (current) drug therapy Z79.899 [place] [address] [facility] [id number] [address] [place] [address] Jan, Bipolar 1 disorder, mixed F3 1.60 [place] [address] [place] [id number] [address] [place] [address] Jan, Bipolar 1 disorder, mixed F3 1.60 [place] [address] [facility] [id number] [address] [place] [address] Jan, Bipolar 1 disorder, mixed F3 1.60 ; Grief F43.20 and 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 Z79.899 [place] [address] [facility] [id number] [address] [place] [address] Jan, Bipolar 1 disorder, mixed F3 1.60 [place] [address] [facility] [id number] [address] [place] [address] Dec, [place] [address] [facility] [id number] [address] [place] [id number] Dec, Bipolar 1 disorder, mixed F3 1.60 ; Vitamin D deficiency, unspecified E55.9 ; H/O allergic rhinitis Z87.09 ; Other chronic pain G89.29 and Dorsalgia, unspecified M54.9 [facility] [address] [facility] [id number] [address] [place] [address] Dec, [place] [address] [facility] [id number] [address] [place] [address] Dec, Bipolar 1 disorder, mixed F3 1.60 [facility] [address] [facility] [id number] [address] [place] [id number] Dec, Major depressive disorder, r ecurrent episode, moderate F33.1 [place] [address] [facility] [id number] [address] [place] [address] Dec, Major depressive disorder, r ecurrent episode, moderate F33.1 [place] [address] [facility] [id number] [address] [place] [address] Nov, [place] [address] [facility] [id number] [address] [place] [address] Nov, Bipolar 1 disorder, mixed F3 1.60 [place] [address] [facility] [id number] [address] [place] [address] Nov, Major depressive disorder, r ecurrent episode, moderate F33.1 [place] [address] [facility] [id number] [address] [place] [address] Nov, Cervicalgia M54.2 ; Arthralg ia of hip, unspecified laterality M25.559 ; Allergic rhinitis J30.9 and Hormone replacement therapy Z79.890 [facility] [address] [facility] [id number] [address] [place] [id number] Nov, Other seasonal allergic rhin itis J30.2 [facility] [address] [facility] [id number] [address] [place] [address] October, Major depressive disorder, r ecurrent episode, moderate F33.1 [place] [address] [facility] [id number] [address] [place] [address] October, Major depressive disorder, r ecurrent episode, moderate F33.1 and Arthralgia of hip, unspecified laterality M25.559 [place] [address] [facility] [id number] [address] [place] [id number] October, Grief F43.20 ; Hypertension I10 ; Hyperlipidemia, unspecified hyperlipidemia type E78.5 ; Other chronic pain G89.29 and Allergic rhinitis, unspecified allergic rhinitis type J30.9 [facility] [address] [place] [id number] [address] [place] [address] October, Major depressive disorder, r ecurrent episode, moderate F33.1 [place] [id number] [place] [address] Sep, Major depressive disorder, r ecurrent episode, moderate F33.1 [place] [id number] [place] [address] Sep, [place] [address] [address] Sep, Major depressive disorder, r ecurrent episode, moderate F33.1 [place] [address] [address] Sep, Grief F43.20 [place] [id number] [place] [address] Aug, Major depressive disorder, r ecurrent episode, moderate F33.1 [place] [address] [address] Aug, Bipolar 1 disorder, mixed F3 1.60 [place] [address] [place] [id number] [address] [place] [address] Aug, Allergic rhinitis J30.9 ; Ce rvicalgia M54.2 and Low back pain M54.5 [place] [address] [place] [id number] [address] [place] [address] Aug, Major depressive disorder, r ecurrent episode, moderate F33.1 [facility] [address] [place] [id number] [address] [place] [address] Aug, Sinusitis J32.9 and Tobacco 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 [facility] [address] [address] Aug, [facility] [address] [id number] [address] [place] [address] Aug, Depressive disorder, not els ewhere classified F32.9 ; Hormone replacement therapy Z79.[address] scan, head R93.0 [facility] [address] [id number] [address] [place] [address] Aug, Major depressive disorder, r ecurrent episode, moderate F33.1 [facility] [address] [id number] [address] [place] [address] Jul, Major depressive disorder, r ecurrent episode, moderate F33.1 [facility] [address] [id number] [address] [place] [address] Jul, Abdominal pain R10.9 and Hyp ertension I10 [facility] [address] [id number] [address] [place] [id number] Jul, [facility] [address] [id number] [address] [place] [id number] Jul, Major depressive disorder, r ecurrent episode, moderate F33.1 [facility] [address] [id number] [address] [place] [address] Jul, [facility] [address] [id number] [address] [place] [id number] Jul, [facility] [address] [id number] [address] [place] [id number] Jun, [facility] [address] [id number] [address] [place] [address] Jun, Depressive disorder, not els ewhere classified F32.9 [facility] [address] [facility] [id number] [address] [place] [address] Jun, [facility] [address] [facility] [id number] [address] [place] [address] Jun, [place] [address] [id number] [address] [place] [address] Jun, Arthralgia of hip, unspecifi ed laterality M25.559 ; Bruising, spontaneous R23.3 and Night sweats R61 [facility] [address] [id number] [address] [place] [address] Jun, [facility] [address] [id number] [address] [place] [address] Jun, [facility] [address] [id number] [address] [place] [address] May, [facility] [address] [id number] [address] [place] [address] May, Myalgia M79.1 and Screening, lipid Z13.220 [facility] [address] [id number] [address] [place] [address] Apr, Status post cervical spinal fusion Z98.1 ; Fibromyalgia M79.7 and Unsteady gait R26.81 [facility] [address] [id number] [address] [place] [address] Nov, [facility] [address] [id number] [address] [place] [address] Nov, [facility] [address] [id number] [address] [place] [address] October, [facility] [address] [id number] [address] [place] [address] October, [facility] [address] [id number] [address] [place] [address] October, [facility] [address] [id number] [address] [place] [address] October, [facility] [address] [id number] [address] [place] [address] October, [facility] [address] [id number] [address] [place] [id number] October, Dysuria 788.1 ; Nausea 787.0 2 and Urinary tract infection 599.0 [facility] [address] [id number] [address] [place] [id number] 14 Sep, 2014 [facility] [address] [id number] [address] [place] [address] Sep, [facility] [address] [id number] [address] [place] [id number] Aug, [facility] [address] [id number] [address] [place] [id number] Aug, [facility] [address] [id number] [address] [place] [address] 24 Aug, 2014 [facility] [address] [id number] [address] [place] [id number] 24 Aug, 2014 [facility] [address] [id number] [address] [place] [address] Aug, [facility] [address] [id number] [address] [place] [address] Aug, [facility] [address] [id number] [address] [place] [address] Aug, [facility] [address] [id number] [address] [place] [id number] 19 Aug, 2014 [facility] [address] [id number] [address] [place] [address] 19 Aug, 2014 [facility] [address] [id number] [address] [place] [address] 18 Aug, 2014 [facility] [address] [id number] [address] [place] [id number] 18 Aug, 2014 [facility] [address] [id number] [address] [place] [id number] 13 Aug, 2014 [facility] [address] [id number] [address] [place] [address] [place] [address] 13 Aug, 2014 [facility] [address] [id number] [address] [place] [address], [place] [address] Aug, 2014 [facility] [address] [id number] [address] [place] [address], [place] [address] Aug, [facility] [address] [id number] [address] [place] [address], [place] [address] Aug, 2014 [facility] [address] [id number] [address] [place] [address], [place] [address] 06 Aug, 2014 [facility] [address] [id number] [address] [place] [address], [place] [address] Aug, [facility] [address] [id number] [address] [place] [address], [place] [id number] Aug, 2014 [facility] [address] [id number] [address] [place] [address], [place] [address] Aug, [facility] [address] [id number] [address] [place] [address], [place] [address] Aug, [facility] [address] [id number] [address] [place] [address], [place] [id number] Aug, [facility] [address] [id number] [address] [place] [address], [place] [address] Jul, [facility] [address] [id number] [address] [place] [address], [place] [address] Jul, 2014 [facility] [address] [id number] [address] [place] [address], [place] [id number] Jul, 2014 [facility] [address] [id number] [address] [place] [address], [place] [address] Jul, 2014 [facility] [address] [id number] [address] [place] [address], [place] [address] Jul, 2014 [facility] [address] [id number] [address] [place] [address], [place] [address] Jul, 2014 [facility] [address] [id number] [address] [place] [address], [place] [id number] Jul, 2014 [facility] [address] [id number] [address] [place] [address], [place] [address] Jul, 2014 [facility] [address] [id number] [address] [place] [address], [place] [id number] Jul, 2014 [facility] [address] [id number] [address] [place] [address], [place] [address] Jul, 2014 [facility] [address] [id number] [address] [place] [address], [place] [address] Jul, [facility] [address] [id number] [address] [place] [address], [place] [address] Jul, 2014 [facility] [address] [id number] [address] [place] [address], [place] [address] Jul, [facility] [address] [id number] [address] [place] [address], [place] [address] Jul, [facility] [address] [id number] [address] [place] [address], [place] [address] Jun, [facility] [address] [id number] [address] [place] [address], [place] [address] Jun, [facility] [address] [id number] [address] [place] [address], [place] [id number] Jun, [facility] [address] [id number] [address] [place] [address], [place] [address] Jun, [facility] [address] [id number] [address] [place] [address], [place] [address] Jun, [facility] [address] [id number] [address] [place] [address], [place] [address] Jun, [facility] [address] [id number] [address] [place] [address], [place] [address] May, [facility] [address] [id number] [address] [place] [address], [place] [address] May, [facility] [address] [id number] [address] [place] [address], [place] [address] May, [facility] [address] [id number] [address] [place] [address], [place] [address] May, [facility] [address] [id number] [address] [place] [address], [place] [address] May, [facility] [address] [id number] [address] [place] [address], [place] [address] May, [facility] [address] [id number] [address] [place] [address], [place] [address] Apr, [facility] [address] [id number] [address] [place] [address], [place] [address] Apr, [facility] [address] [id number] [address] [place] [address], [place] [address] Apr, [facility] [address] [id number] [address] [place] [address], [place] [address] Apr, [facility] [address] [id number] [address] [place] [address], [place] [address] Apr, [facility] [address] [id number] [address] [place] [address], [place] [address] Apr, [facility] [address] [id number] [address] [place] [address], [place] [address] Mar, [facility] [address] [id number] [address] [place] [address], [place] [address] Mar, [facility] [address] [id number] [address] [place] [address], [place] [address] Mar, [facility] [address] [id number] [address] [place] [address], [place] [address] Mar, [facility] [address] [id number] [address] [place] [address], [place] [address] Mar, [facility] [address] [id number] [address] [place] [address], [place] [address] Mar, [facility] [address] [id number] [address] [place] [address], [place] [address] Mar, [facility] [address] [id number] [address] [place] [address], [place] [address] Mar, [facility] [address] [id number] [address] [place] [address], [place] [address] Mar, [facility] [address] [id number] [address] [place] [address], [place] [address] Mar, [facility] [address] [id number] [address] [place] [address], [place] [id number] Mar, [facility] [address] [id number] [address] [place] [address], [place] [address] Mar, [facility] [address] [id number] [address] [place] [address], [place] [address] 30 Feb, 2013 [facility] [address] [id number] [address] [place] [address], [place] [address] 29 Feb, 2013 [facility] [address] [id number] [address] [place] [address], [place] [address] 29 Feb, 2013 [facility] [address] [id number] [address] [place] [address], [place] [address] 23 Feb, 2013 [facility] [address] [id number] [address] [place] [id number] 23 Feb, 2013 [facility] [address] [id number] [address] [place] [address], [place] [id number] 08 Feb, 2013 [facility] [address] [id number] [address] [place] [address], [place] [id number] 08 Feb, 2013 [facility] [address] [id number] [address] [place] [address], [place] [address] Jan, [facility] [address] [id number] [address] [place] [address], [place] [address] Jan, [facility] [address] [id number] [address] [place] [address], [place] [address] Jan, [facility] [address] [id number] [address] [place] [address], [place] [address] Dec, [facility] [address] [id number] [address] [place] [address], [place] [address] Dec, [facility] [address] [id number] [address] [place] [address], [place] [id number] Dec, [facility] [address] [id number] [address] [place] [address], [place] [address] Dec, [facility] [address] [id number] [address] [place] [address], [place] [address] Sep, [facility] [address] [id number] [address] [place] [address], [place] [address] Sep, [facility] [address] [id number] [address] [place] [address], [place] [address] Sep, [facility] [address] [id number] [address] [place] [address], [place] [id number] Sep, [facility] [address] [id number] [address] [place] [address], [place] [id number] Sep, [facility] [address] [id number] [address] [place] [address], [place] [id number] Sep, [facility] [address] [id number] [address] [place] [address], [place] [id number] Sep, [facility] [address] [id number] [address] [place] [address], [place] [id number] Sep, [facility] [address] [id number] [address] [place] [address], [place] [id number] Aug, [facility] [address] [id number] [address] [place] [address], [place] [id number] Aug, [facility] [address] [id number] [address] [place] [address], [place] [id number] May, [facility] [address] [id number] [address] [place] [address], [place] [id number] May, [facility] [address] [id number] [address] [place] [address], [place] [id number] Apr, [facility] [address] [id number] [address] [place] [address], [place] [id number] Apr, [facility] [address] [id number] [address] [place] [address], [place] [id number] Apr, [facility] [address] [id number] [address] [place] [address], [place] [id number] Apr, [facility] [address] [id number] [address] [place] [address], [place] [id number] Apr, [facility] [address] [id number] [address] [place] [address], [place] [id number] Apr, [facility] [address] [id number] [address] [place] [address], [place] [id number] May, [facility] [address] [id number] [address] [place] [address], [place] [id number] 18 May, 2012 [facility] [address] [id number] [address] [place] [address], [place] [id number] 15 May, 2012 [facility] [address] [id number] [address] [place] [address], [place] [id number] 15 May, 2012 [facility] [address] [id number] [address] [place] [address], [place] [id number] 13 May, 2012 [facility] [address] [id number] [address] [place] [address], [place] [id number] 13 May, 2012 [facility] [address] [id number] [address] [place] [address], [place] [id number] 13 Apr, 2012 [facility] [address] [id number] [address] [place] [address], [place] [id number] Apr, [facility] [address] [id number] [address] [place] [address], [place] [id number] 08 Apr, 2012 [facility] [address] [id number] [address] [place] [address], [place] [id number] Apr, [facility] [address] [id number] [address] [place] [address], [place] [id number] Apr, [facility] [address] [id number] [address] [place] [address], [place] [id number] Apr, [facility] [address] [id number] [address] [place] [address], [place] [id number] Apr, [facility] [address] [id number] [address] [place] [address], [place] [id number] Apr, [facility] [address] [id number] [address] [place] [address], [place] [id number] Apr, [facility] [address] [id number] [address] [place] [id number] Apr, [facility] [address] [id number] [address] [place] [address], [place] [id number] Mar, [facility] [address] [id number] [address] [place] [id number] Mar, [facility] [address] [id number] [address] [place] [id number] Mar, [facility] [address] [id number] [address] [place] [id number] Mar, [facility] [address] [id number] [address] [place] [address], [place] [id number] Mar, [facility] [address] [id number] [address] [place] [id number] Mar, [facility] [address] [id number] [address] [place] [id number] Mar, [facility] [address] [id number] [address] [place] [address], [place] [id number] Mar, [facility] [address] [id number] [address] [place] [address], [place] [id number] Mar, [facility] [address] [id number] [address] [place] [address], [place] [id number] 25 Feb, 2012 [facility] [address] [id number] [address] [place] [address], [place] [id number] 16 Feb, 2012 [facility] [facility] [address] [id number] [address] [place] [address], [place] [id number] 11 Feb, 2012 [facility] [address] [id number] [address] [place] [address], [place] [id number] Jan, [facility] [address] [id number] [address] [place] [address], [place] [id number] Jan, [facility] [address] [id number] [address] [place] [address], [place] [id number] Jan, [facility] [address] [id number] [address] [place] [address], [place] [id number] Jan, [facility] [address] [id number] [address] [place] [address], [place] [id number] Jan, [facility] [address] [id number] [address] [place] [address], [place] [id number] Jan, [facility] [address] [id number] [address] [place] [address], [place] [id number] 16 Jan, 2012 [facility] [address] [id number] [address] [place] [address], [place] [id number] Jan, [facility] [address] [id number] [address] [place] [address], [place] [id number] Jan, [facility] [address] [id number] [address] [place] [address], [place] [id number] Jan, [facility] [address] [id number] [address] [place] [address], [place] [id number] Dec, [facility] [address] [id number] [address] [place] [address], [place] [id number] Dec, [facility] [address] [id number] [address] [place] [address], [place] [id number] Dec, [facility] [address] [id number] [address] [place] [address], [place] [id number] Dec, [facility] [address] [id number] [address] [place] [address], [place] [id number] Nov, [facility] [address] [id number] [address] [place] [address], [place] [id number] Nov, [facility] [address] [id number] [address] [place] [address], [place] [id number] Nov, [facility] [address] [id number] [address] [place] [address], [place] [id number] October, [facility] [address] [id number] [address] [place] [address], [place] [id number] October, [facility] [address] [id number] [address] [place] [address], [place] [id number] October, [facility] [address] [id number] [address] [place] [address], [place] [id number] October, [facility] [address] [id number] [address] [place] [address], [place] [id number] October, [facility] [address] [id number] [address] [place] [address], [place] [id number] October, [facility] [address] [id number] [address] [place] [address], [place] [id number] Aug, [facility] [address] [id number] [address] [place] [address], [place] [id number] Mar, [facility] [address] [id number] [address] [place] [address], [place] [id number] 16 Nov, 2010 [facility] [address] [id number] [address] [address] May, [facility] [address] [facility] [id number] [address] [place] [id number] May, [facility] [address] [facility] [id number] [address] [place] [id number] Apr, [facility] [address] [facility] [id number] [address] [place] [id number] Mar, [facility] [address] [facility] [id number] [address] [place] [id number] Mar, IMMUNIZATIONS No Known Immunizations SOCIAL HISTORY Never Assessed REASON FOR VISIT f/u PLAN OF CARE Activity Details Follow Up 1 Week Reason: F/U VITAL SIGNS MEDICATIONS Unknown Medications RESULTS No Results PROCEDURES Procedure Date Ordered Result Body Site [facility] VISIT MENTAL HEALTH ESTAB PT Mar 28, 2017 Psychotherapy, patient &/family, 45 minutes, established patient Mar 28, 2017 INSTRUCTIONS MEDICATIONS ADMINISTERED No Known Medications MEDICAL (GENERAL) HISTORY Type Description Date Medical History Severe spinal stenosis [facility] cervical spine CT and MRI done 10/2014 [...]
--- OUTSIDE RECORDS SUMMARY | 2019-06-19 05:49 | XMS REPORT ---
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 Name Role Phone JOHN MORTON Unavailable PROBLEMS Type Condition ICD9-CM Code [id number] Code Onset Dates Condition S tatus SNOMED Code Problem Hormone replacement therapy Z79.890 Ac tive 941687939 Problem Abnormal CT scan, head R93.0 Active 624010905 Problem Sensorineural hearing loss (SNHL) of both ears H90 .3 Active 174422831 Problem History of colon polyps Z86.010 Active 794837155 Problem Bruising, spontaneous R23.3 Active 431231737 Problem Generalized anxiety disorder F41.1 A ctive 54545440 Problem Arthralgia of hip, unspecified laterality M25.559 Active 85588348 Problem Hematuria, unspecified type R31.9 Ac tive 05497616 Problem Imbalance R26.89 Active 145316109 Problem Hammer toe of right foot M20.41 Activ e 074173369 Problem Plantar wart of right foot B07.0 Act mitchell [id number] Problem Sciatica of left side M54.32 Active 18429288 Problem Hyperlipidemia, unspecified hyperlipidemia type E7 8.5 Active 76567738 Problem Hypertension I10 Active 4186460 3 Problem Night sweats R61 Active 7088009 0 Problem Fibromyalgia M79.7 Active 2708189 7 Problem Major depressive disorder, recurrent episode, moderate F33.1 Active 719491935 Problem Acute left-sided low back pain with left-sided sciatica M54.42 Active 142554120 Problem Bladder spasm N32.89 Active 108951 006 Problem Gastritis without bleeding, unspecified chronicity, unspecified gastritis type K29.70 Active 323542036 Problem Bipolar 1 disorder, mixed F31.60 Acti ve 49254506 Problem Grief F43.20 Active 30515498 Problem Other chronic pain G89.29 Active 8 3186099 Problem Allergic rhinitis J30.9 Active 61 839674 Problem Hot flashes due to menopause N95.1 A ctive 805337693 Problem Ataxia R27.0 Active 77722100 Problem Hearing loss, unspecified laterality H91.90 Active 19997241 ALLERGIES No Information ENCOUNTERS Encounter Location Date Diagnosis [facility] [address] [facility] [id number] [address] [place] [address] Jan, [facility] [address] [facility] [id number] [address] [place] [address] Jan, [facility] [address] [facility] [id number] [address] [place] [address] Jan, [facility] [address] [facility] [id number] [address] [place] [address] Dec, [facility] [address] [facility] [id number] [address] [place] [address] Dec, [facility] [address] [facility] [id number] [address] [place] [address] Dec, [facility] [address] [facility] [id number] [address] [place] [address] Dec, Bipolar 1 disorder, mixed F3 1.60 [facility] [address] [facility] [id number] [address] [place] [address] Nov, Bipolar 1 disorder, mixed F3 1.60 [facility] [address] [facility] [id number] [address] [place] [address] Nov, Bipolar 1 disorder, mixed F3 1.60 [facility] [address] [facility] [id number] [address] [place] [address] Nov, Bipolar 1 disorder, mixed F3 1.60 [facility] [address] [facility] [id number] [address] [place] [address] Nov, Allergic rhinitis J30.9 [facility] [address] [facility] [id number] [address] [place] [address] Nov, Allergic rhinitis J30.9 [facility] [address] [facility] [id number] [address] [place] [address] Nov, [facility] [address] [place] [address] Nov, Bipolar 1 disorder, mixed F3 1.60 [place] [address] [place] [id number] [place] [address] Nov, Fibromyalgia M79.7 and Aller gic rhinitis J30.9 [facility] [address] [facility] [id number] [address] [place] [address] October, Bipolar 1 disorder, mixed F3 1.60 [facility] [place] [address] [place] [id number] [place] [address] October, Acute nasopharyngitis J00 [facility] [address] [address] October, Bitten or stung by nonvenomo us insect and other nonvenomous arthropods, initial encounter W57.XXXA and Insect bite (nonvenomous) of abdominal wall, initial encounter S30.861A [place] [address] [address] October, Insect bite (nonvenomous) of abdominal wall, initial encounter S30.861A ; Bitten or stung by nonvenomous insect and other nonvenomous arthropods, initial encounter W57.XXXA ; Allergic rhinitis J30.9 and Low back pain M54.5 [facility] [address] [place] [id number] [place] [address] October, Bipolar 1 disorder, mixed F3 1.60 [place] [address] [address] October, [place] [address] [place] [id number] [place] [address] October, [place] [address] [address] October, Bipolar 1 disorder, mixed F3 1.60 [facility] [address] [id number] [address] [place] [address] Sep, Bipolar 1 disorder, mixed F3 1.60 [facility] [address] [facility] [id number] [address] [place] [address] Sep, Other chronic pain G89.29 [facility] [address] [facility] [id number] [address] [place] [address] Sep, [facility] [address] [facility] [id number] [address] [place] [address] Sep, Bipolar 1 disorder, mixed F3 1.60 [facility] [address] [facility] [id number] [address] [place] [address] Sep, Allergic rhinitis J30.9 and Sciatica of left side M54.32 [facility] [address] [facility] [id number] [address] [place] [address] Sep, Bipolar 1 disorder, mixed F3 1.60 [facility] [address] [facility] [id number] [address] [place] [address] Sep, Bipolar 1 disorder, mixed F3 1.60 and Generalized anxiety disorder F41.1 [facility] [address] [facility] [id number] [address] [place] [address] Aug, [facility] [address] [facility] [id number] [address] [place] [address] Aug, Bipolar 1 disorder, mixed F3 1.60 [facility] [address] [facility] [id number] [address] [place] [address] Aug, Bipolar 1 disorder, mixed F3 1.60 [facility] [address] [facility] [id number] [address] [place] [address] Aug, [facility] [address] [facility] [id number] [address] [place] [address] Aug, Generalized anxiety disorder F41.1 [facility] [address] [place] [id number] [place] [address] Aug, Bipolar 1 disorder, mixed F3 1.60 [facility] [address] [place] [id number] [address] [place] [address] Aug, Plantar wart of right foot B 07.0 [facility] [address] [place] [id number] [place] [address] Aug, Bipolar 1 disorder, mixed F3 1.60 [facility] [address] [place] [id number] [place] [address] Jul, Bipolar 1 disorder, mixed F3 1.60 [place] [address] [address] Jul, [place] [address] [address] Jul, Bipolar 1 disorder, mixed F3 1.60 [facility] [address] [place] [id number] [address] [place] [address] Jul, Generalized anxiety disorder F41.1 [facility] [address] [place] [address] Jul, Bipolar 1 disorder, mixed F3 1.60 [place] [address] [place] [id number] [address] [place] [address] Jul, Acute left-sided low back pa in with left-sided sciatica M54.42 [facility] [address] [place] [id number] [place] [address] Jul, Coccydynia M53.3 [facility] [address] [place] [id number] [place] [address] Jun, Bipolar 1 disorder, mixed F3 1.60 [facility] [address] [place] [id number] [place] [address] Jun, Acute nasopharyngitis J00 [facility] [address] [address] Jun, Bipolar 1 disorder, mixed F3 1.60 [place] [address] [address] Jun, Fibromyalgia M79.7 [place] [address] [address] Jun, Bipolar 1 disorder, mixed F3 1.60 [place] [address] [address] Jun, Fibromyalgia M79.7 and Bipol ar 1 disorder, mixed F31.60 [place] [address] [address] May, Bipolar 1 disorder, mixed F3 1.60 ; Generalized anxiety disorder F41.1 and Other mcc (current) drug therapy Z79.899 [place] [address] [address] May, Bipolar 1 disorder, mixed F3 1.60 [facility] [address] [place] [address] 14 May, 2017 Cough R05 and Body aches R52 [facility] [address] [address] 10 May, 2017 Bladder spasm N32.89 and Acu te cystitis without hematuria N30.00 [place] [address] [address] 07 May, 2017 Bipolar 1 disorder, mixed F3 1.60 [place] [address] [address] Apr, [place] [address] [address] Apr, Major depressive disorder, r ecurrent episode, moderate F33.1 and Encounter for immunization Z23 [place] [address] [address] Apr, Bipolar 1 disorder, mixed F3 1.60 [facility] [address] [place] [id number] [place] [address] Apr, Bipolar 1 disorder, mixed F3 1.60 [facility] [address] [place] [id number] [place] [address] Apr, Bipolar 1 disorder, mixed F3 1.60 [facility] [address] [address] Apr, Yeast vaginitis B37.3 [facility] [address] [place] [id number] [place] [address] 09 Apr, 2017 Bipolar 1 disorder, mixed F3 1.60 [facility] [address] [place] [id number] [place] [address] 07 Apr, 2017 Encounter for immunization Z 23 and Cellulitis L03.90 [facility] [address] [address] Apr, Bipolar 1 disorder, mixed F3 1.60 [facility] [address] [address] Mar, Bipolar 1 disorder, mixed F3 1.60 [facility] [address] [place] [id number] [place] [address] Mar, Bipolar 1 disorder, mixed F3 1.60 [facility] [address] [place] [address] Mar, Imbalance R26.89 and Encount er for immunization Z23 [facility] [address] [place] [id number] [place] [address] Mar, Generalized anxiety disorder F41.1 [facility] [address] [place] [id number] [place] [address] Mar, Bipolar 1 disorder, mixed F3 1.60 [facility] [address] [place] [id number] [place] [address] Mar, Generalized anxiety disorder F41.1 [place] [id number] [facility] [id number] [address] [place] [address] Mar, Bipolar 1 disorder, mixed F3 1.60 [facility] [address] [facility] [id number] [address] [place] [address] Mar, Bipolar 1 disorder, mixed F3 1.60 [place] [address] [facility] [id number] [address] [place] [address] Feb, Bipolar 1 disorder, mixed F3 1.60 [place] [address] [facility] [id number] [address] [place] [address] Feb, Bipolar 1 disorder, mixed F3 1.60 and Generalized anxiety disorder F41.1 [place] [address] [facility] [id number] [address] [place] [address] Feb, Gastritis without bleeding, unspecified chronicity, unspecified gastritis type K29.70 ; Hammer toe of right foot M20.41 and Other viral warts B07.8 [place] [address] [facility] [id number] [address] [place] [address] Feb, Bipolar 1 disorder, mixed F3 1.60 [place] [address] [facility] [id number] [address] [place] [address] Feb, Bipolar 1 disorder, mixed F3 1.60 [place] [address] [facility] [id number] [address] [place] [address] Feb, Bipolar 1 disorder, mixed F3 1.60 [place] [address] [facility] [id number] [address] [place] [address] Jan, Encounter for screening mamm ogram for breast cancer Z12.31 ; Other viral warts B07.8 and Allergic rhinitis J30.9 [place] [address] [facility] [id number] [address] [place] [address] Jan, Bipolar 1 disorder, mixed F3 1.60 [place] [address] [facility] [id number] [address] [place] [address] Jan, Bipolar 1 disorder, mixed F3 1.60 [place] [address] [place] [id number] [place] [address] Jan, [facility] [address] [place] [id number] [place] [address] Jan, Bipolar 1 disorder, mixed F3 1.60 [place] [address] [place] [id number] [place] [address] Jan, Bipolar 1 disorder, mixed F3 1.60 [place] [address] [place] [id number] [place] [address] Jan, Allergic rhinitis J30.9 ; He maturia R31.9 and Colon cancer screening Z12.11 [place] [address] [place] [id number] [address] [place] [address] Dec, Bipolar 1 disorder, mixed F3 1.60 [place] [address] [address] Dec, Bipolar 1 disorder, mixed F3 1.60 ; Generalized anxiety disorder F41.1 and Other mcc (current) drug therapy Z79.899 [place] [address] [place] [id number] [address] [place] [address] Dec, Bipolar 1 disorder, mixed F3 1.60 [place] [address] [place] [address] Dec, Bipolar 1 disorder, mixed F3 1.60 [place] [address] [place] [id number] [place] [address] Dec, Bipolar 1 disorder, mixed F3 1.60 [place] [address] [place] [id number] [place] [address] Dec, Low back pain M54.5 and Recu rrent urinary tract infection N39.0 [place] [address] [place] [id number] [place] [address] Nov, Bipolar 1 disorder, mixed F3 1.60 [facility] [address] [facility] [id number] [address] [place] [address] Nov, Bipolar 1 disorder, mixed F3 1.60 [facility] [address] [facility] [id number] [address] [place] [address] Nov, Bipolar 1 disorder, mixed F3 1.60 [facility] [address] [place] [id number] [place] [address] Nov, Bipolar 1 disorder, mixed F3 1.60 [facility] [address] [facility] [id number] [address] [place] [address] Nov, [facility] [address] [place] [id number] [place] [address] Nov, Anesthesia of skin R20.0 ; F requent UTI N39.0 ; Tobacco abuse Z72.0 and Colon cancer screening Z12.11 [facility] [address] [place] [id number] [place] [address] Nov, Bipolar 1 disorder, mixed F3 1.60 [facility] [address] [place] [id number] [place] [address] October, Bipolar 1 disorder, mixed F3 1.60 [facility] [address] [place] [id number] [place] [address] October, Bipolar 1 disorder, mixed F3 1.60 [facility] [address] [facility] [id number] [address] [place] [address] October, Bipolar 1 disorder, mixed F3 1.60 [facility] [address] [facility] [id number] [address] [place] [address] October, Bipolar 1 disorder, mixed F3 1.60 [facility] [address] [place] [id number] [place] [address] October, Bipolar 1 disorder, mixed F3 1.60 [facility] [address] [place] [id number] [place] [address] October, Cervicalgia M54.2 and Bipola r 1 disorder, mixed F31.60 [place] [address] [address] October, Hypertension I10 ; Hyperlipi demia, unspecified hyperlipidemia type E78.5 and Family history of thyroid disease Z83.49 [place] [address] [address] October, [place] [address] [address] October, Hypertension I10 ; Hyperlipi demia, unspecified hyperlipidemia type E78.5 and Family history of thyroid problem Z83.49 [place] [address] [address] October, Bipolar 1 disorder, mixed F3 1.60 [place] [address] [address] Sep, Bipolar 1 disorder, mixed F3 1.60 [place] [address] [address] Sep, Bipolar 1 disorder, mixed F3 1.60 [place] [address] [address] Sep, Bipolar 1 disorder, mixed F3 1.60 [place] [address] [address] Sep, History of colon polyps Z86. 010 and Hematochezia K92.1 [place] [address] [address] Sep, Major depressive disorder, r ecurrent episode, moderate F33.1 [place] [address] [address] Sep, Bipolar 1 disorder, mixed F3 1.60 [place] [address] [address] Aug, Hot flashes due to menopause N95.1 [facility] [address] [place] [address] Aug, Bipolar 1 disorder, mixed F3 1.60 [facility] [address] [place] [address] Aug, [facility] [address] [place] [address] Aug, Bipolar 1 disorder, mixed F3 1.60 [facility] [address] [place] [address] Aug, Bipolar 1 disorder, mixed F3 1.60 [place] [address] Aug, Hot flashes due to menopause N95.1 ; Cervicalgia M54.2 and Ataxia R27.0 [place] [address] [address] Jul, Bipolar 1 disorder, mixed F3 1.60 [place] [address] [place] [address] Jul, Bipolar 1 disorder, mixed F3 1.60 [place] [address] [address] Jul, Bipolar 1 disorder, mixed F3 1.60 [place] [address] [address] Jul, Bipolar 1 disorder, mixed F3 1.60 [place] [address] [place] [address] Jul, Bipolar 1 disorder, mixed F3 1.60 [facility] [address] [place] [id number] Jul, Cervicalgia M54.2 ; Tremor R 25.1 ; Hearing abnormally acute, unspecified laterality H93.239 ; Alopecia L65.9 ; Encounter for immunization Z23 and Family history of thyroid disease Z83.49 [facility] [address] [place] [address] Jul, Bipolar 1 disorder, mixed F3 1.60 [facility] [address] [place], [place] [id number] Jun, [place] [address] [place] [address] Jun, Hearing disorder, unspecifie d laterality H93.299 [facility] [address] [place] [address] Jun, Bipolar 1 disorder, mixed F3 1.60 [place] [address] [place] [address] Jun, Bipolar 1 disorder, mixed F3 1.60 [place] [address] [address] Jun, Allergic rhinitis J30.9 [facility] [address] [address] Jun, Bipolar 1 disorder, mixed F3 1.60 [place] [address] [address] Jun, Bipolar 1 disorder, mixed F3 1.60 [place] [address] [address] Jun, Allergic rhinitis J30.9 [facility] [address] [place] [id number] [place] [address] Jun, Allergic rhinitis J30.9 [facility] [address] [place] [id number] [place], [place] [id number] Jun, Bipolar 1 disorder, mixed F3 1.60 [facility] [id number] [place] [id number] May, Bipolar 1 disorder, mixed F3 1.60 [facility] [address] [facility] [id number] [address] [place] [phone] May, Bipolar 1 disorder, mixed F3 1.60 [facility] [address] [facility] [id number] [address] [place] [id number] May, [facility] [address] [facility] [id number] [address] [place] [phone] May, Bipolar 1 disorder, mixed F3 1.60 [facility] [address] [place] [id number] [place] [phone] May, Bipolar 1 disorder, mixed F3 1.60 [facility] [address] [place] [id number] [place] [phone] May, [facility] [address] [place] [id number] [place] [phone] May, [facility] [address] [id number] May, [facility] [address] [id number] May, Abdominal pain, unspecified location R10.9 [facility] [address] [id number] May, [facility] [address] [id number] Apr, Hematuria R31.9 ; Ataxia R27 .0 and Hearing loss, unspecified laterality H91.90 [facility] [address] [place] [id number] [address] [place] [id number] Apr, Bipolar 1 disorder, mixed F3 1.60 [facility] [address] [place] [id number] [place] [phone] Apr, Acute effusion of both middl e ears H65.193 [facility] [address] [place] [id number] [place] [id number] Apr, Hematuria R31.9 and Pyelonep hritis N12 [facility] [address] [place] [id number] [place] [id number] Apr, [place] [address] [place] [id number] [place] [phone] Mar, Bipolar 1 disorder, mixed F3 1.60 [facility] [address] [id number] [address] [place] [address] Mar, [place] [address] [place] [address] [id number] [address] [place] [address] Mar, Bipolar 1 disorder, mixed F3 1.60 [place] [address] [place] [id number] [place] [address] Mar, Bipolar 1 disorder, mixed F3 1.60 [place] [address] [place] [id number] [place] [address] Mar, Encounter for immunization Z 23 and Gastritis without bleeding, unspecified chronicity, unspecified gastritis type K29.70 [place] [address] [place] [id number] [address] [place] [address] Mar, Bipolar 1 disorder, mixed F3 1.60 and Grief F43.20 [place] [address] [place] [id number] [place] [address] Mar, Gastritis without bleeding, unspecified chronicity, unspecified gastritis type K29.70 [place] [address] [place] [id number] [address] [place] [address] Mar, Bipolar 1 disorder, mixed F3 1.60 [place] [address] [place] [id number] [place] [address] Mar, Gastritis without bleeding, unspecified chronicity, unspecified gastritis type K29.70 [place] [address] [facility] [id number] [address] [place] [address] Mar, [place] [address] [place] [id number] [address] [place] [address] Feb, Bipolar 1 disorder, mixed F3 1.60 [facility] [id number] [place] [address] Feb, Bipolar 1 disorder, mixed F3 1.60 and Grief F43.20 [facility] [id number] [place] [address] 22 Feb, 2016 Gastritis without bleeding, unspecified chronicity, unspecified gastritis type K29.70 [facility] [id number] [place] [address] 14 Feb, 2016 Bipolar 1 disorder, mixed F3 1.60 [facility] [id number] [place], [place] [id number] 09 Feb, 2016 Gastroesophageal reflux dise ase, esophagitis presence not specified K21.9 [place] [address] [place] [id number] [address] [place] [address] Jan, Bipolar 1 disorder, mixed F3 1.60 [place] [address] [place] [id number] [address] [place] [address] Jan, Bipolar 1 disorder, mixed F3 1.60 and Unsteady gait R26.81 [place] [address] [place] [id number] [place] [address] Jan, Bipolar 1 disorder, mixed F3 1.60 [place] [address] [place] [id number] [place] [address] Jan, Bipolar 1 disorder, mixed F3 1.60 and Other roasterman (current) drug therapy Z79.899 [place] [address] [place] [id number] [place] [address] Jan, Bipolar 1 disorder, mixed F3 1.60 [place] [address] [place] [id number] [place] [address] Jan, Bipolar 1 disorder, mixed F3 1.60 [place] [address] [place] [id number] [place] [address] Jan, Bipolar 1 disorder, mixed F3 1.60 ; Grief F43.20 and Other roasterman (current) drug therapy Z79.899 [place] [id number] [place] [id number] [place] [address] Jan, Bipolar 1 disorder, mixed F3 1.60 [facility] [id number] [place] [address] Dec, [facility] [id number] [place] [address] Dec, Bipolar 1 disorder, mixed F3 1.60 ; Vitamin D deficiency, unspecified E55.9 ; H/O allergic rhinitis Z87.09 ; Other chronic pain G89.29 and Dorsalgia, unspecified M54.9 [place] [address] [place] [id number] [place] [address] Dec, [place] [address] [place] [id number] [place] [address] Dec, Bipolar 1 disorder, mixed F3 1.60 [place] [address] [place] [id number] [place] [address] Dec, Major depressive disorder, r ecurrent episode, moderate F33.1 [place] [address] [place] [id number] [place] [address] Dec, Major depressive disorder, r ecurrent episode, moderate F33.1 [place] [address] [place] [id number] [place] [address] Nov, [place] [address] [place] [id number] [place] [address] Nov, Bipolar 1 disorder, mixed F3 1.60 [place] [id number] [place] [id number] [place] [address] Nov, Major depressive disorder, r ecurrent episode, moderate F33.1 [place] [address] [place] [id number] [place] [address] Nov, Cervicalgia M54.2 ; Arthralg ia of hip, unspecified laterality M25.559 ; Allergic rhinitis J30.9 and Hormone replacement therapy Z79.890 [facility] [address] [id number] [address] [place] [address] 13 Nov, 2015 Other seasonal allergic rhin itis J30.2 [facility] [address] [id number] [address] [place] [address] October, Major depressive disorder, r ecurrent episode, moderate F33.1 [facility] [address] [id number] [address] [place] [address] October, Major depressive disorder, r ecurrent episode, moderate F33.1 and Arthralgia of hip, unspecified laterality M25.559 [facility] [address] [facility] [id number] [address] [place] [address] October, Grief F43.20 ; Hypertension I10 ; Hyperlipidemia, unspecified hyperlipidemia type E78.5 ; Other chronic pain G89.29 and Allergic rhinitis, unspecified allergic rhinitis type J30.9 [facility] [address] [id number] [address] [place] [address] October, Major depressive disorder, r ecurrent episode, moderate F33.1 [facility] [address] [facility] [id number] [address] [place] [address] Sep, Major depressive disorder, r ecurrent episode, moderate F33.1 [place] [id number] [facility] [id number] [address] [place] [address] Sep, [place] [address] [id number] [address] [place] [address] Sep, Major depressive disorder, r ecurrent episode, moderate F33.1 [place] [address] [facility] [id number] [address] [place] [address] Sep, Grief F43.20 [place] [address] [facility] [id number] [address] [place] [address] Aug, Major depressive disorder, r ecurrent episode, moderate F33.1 [facility] [id number] [place] [address] Aug, Bipolar 1 disorder, mixed F3 1.60 [facility] [address] [id number] [place] [address] Aug, Allergic rhinitis J30.9 ; Ce rvicalgia M54.2 and Low back pain M54.5 [place] [address] [address] Aug, Major depressive disorder, r ecurrent episode, moderate F33.1 [facility] [address] [address] Aug, Sinusitis J32.9 and Tobacco 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 [place] [address] [address] Aug, [place] [address] [address] Aug, Depressive disorder, not els ewhere classified F32.9 ; Hormone replacement therapy Z79.[address] scan, head R93.0 [place] [address] [address] Aug, Major depressive disorder, r ecurrent episode, moderate F33.1 [place] [address] [address] Jul, Major depressive disorder, r ecurrent episode, moderate F33.1 [place] [id number] [place] [address] Jul, Abdominal pain R10.9 and Hyp ertension I10 [place] [address] [place] [id number] [place] [address] Jul, [place] [address] [address] Jul, Major depressive disorder, r ecurrent episode, moderate F33.1 [facility] [address] [id number] [address] [place] [address] Jul, [facility] [address] [id number] [address] [place] [address] Jul, [facility] [address] [id number] [address] [place] [address] Jun, [facility] [address] [id number] [address] [place] [address] Jun, Depressive disorder, not els ewhere classified F32.9 [facility] [address] [id number] [address] [place] [address] Jun, [facility] [address] [facility] [id number] [address] [place] [address] Jun, [place] [address] [place] [id number] [place] [address] Jun, Arthralgia of hip, unspecifi ed laterality M25.559 ; Bruising, spontaneous R23.3 and Night sweats R61 [facility] [address] [facility] [id number] [address] [place] [address] Jun, [facility] [address] [facility] [id number] [address] [place] [address] Jun, [facility] [id number] [place] [address] May, [place] [address] [facility] [id number] [address] [place] [address] May, Myalgia M79.1 and Screening, lipid Z13.220 [place] [address] [facility] [id number] [address] [place] [address] 10 Apr, 2015 Status post cervical spinal fusion Z98.1 ; Fibromyalgia M79.7 and Unsteady gait R26.81 [facility] [id number] [place] [address] Nov, [facility] [address] [id number] [address] [place] [address] Nov, [facility] [address] [id number] [address] [place] [address] October, [facility] [address] [id number] [address] [place] [address] October, [facility] [address] [id number] [address] [place] [address] October, [facility] [address] [id number] [address] [place] [address] October, [facility] [address] [id number] [address] [place] [address] October, [facility] [address] [id number] [address] [place] [address] October, Dysuria 788.1 ; Nausea 787.0 2 and Urinary tract infection 599.0 [facility] [address] [id number] [address] [place] [address] Sep, [facility] [address] [id number] [address] [place] [address] Sep, [facility] [address] [id number] [address] [place] [address] Aug, [facility] [address] [id number] [address] [place] [address] Aug, [facility] [address] [id number] [address] [place] [address] Aug, [facility] [address] [id number] [address] [place] [address] Aug, [facility] [address] [id number] [address] [place] [address] Aug, [facility] [address] [id number] [address] [place] [address] 19 Aug, 2014 [facility] [address] [id number] [address] [place] [address], [place] [address] 19 Aug, 2014 [facility] [address] [id number] [address] [place] [address], [place] [address] 19 Aug, 2014 [facility] [address] [id number] [address] [place] [address], [place] [address] 19 Aug, 2014 [facility] [address] [id number] [address] [place] [address], [place] [address] 18 Aug, 2014 [facility] [address] [id number] [address] [place] [address], [place] [address] 18 Aug, 2014 [facility] [address] [id number] [address] [place] [address], [place] [address] 13 Aug, 2014 [facility] [address] [id number] [address] [place] [address], [place] [address] 13 Aug, 2014 [facility] [address] [id number] [address] [place] [address], [place] [address] 11 Aug, 2014 [facility] [address] [id number] [address] [place] [address], [place] [address] 11 Aug, 2014 [facility] [address] [id number] [address] [place] [address], [place] [address] 06 Aug, 2014 [facility] [address] [id number] [address] [place] [address], [place] [address] 06 Aug, 2014 [facility] [address] [id number] [address] [place] [address], [place] [address] 05 Aug, 2014 [facility] [address] [id number] [address] [place] [address], [place] [address] 05 Aug, 2014 [facility] [address] [id number] [address] [place] [address], [place] [address] 04 Aug, 2014 [facility] [address] [id number] [address] [place] [address], [place] [address] 03 Aug, 2014 [facility] [address] [id number] [address] [place] [address], [place] [address] Aug, [facility] [address] [id number] [address] [place] [address], [place] [address] Jul, 2014 [facility] [address] [id number] [address] [place] [address], [place] [address] Jul, 2014 [facility] [address] [id number] [address] [place] [address], [place] [address] Jul, 2014 [facility] [address] [id number] [address] [place] [address], [place] [address] Jul, 2014 [facility] [address] [id number] [address] [place] [address], [place] [address] Jul, 2014 [facility] [address] [id number] [address] [place] [address], [place] [address] Jul, 2014 [facility] [address] [id number] [address] [place] [address], [place] [address] Jul, 2014 [facility] [address] [id number] [address] [place] [address], [place] [address] Jul, 2014 [facility] [address] [id number] [address] [place] [address], [place] [address] Jul, 2014 [facility] [address] [id number] [address] [place] [address], [place] [address] Jul, 2014 [facility] [address] [id number] [address] [place] [address] Jul, 2014 [facility] [address] [id number] [address] [place] [address], [place] [address] Jul, 2014 [facility] [address] [id number] [address] [place] [address], [place] [address] Jul, 2014 [facility] [address] [id number] [address] [place] [address], [place] [address] Jul, 2014 [facility] [address] [id number] [address] [place] [address] [place] [address] Jun, [facility] [address] [id number] [address] [place] [address], [place] [address] Jun, [facility] [address] [id number] [address] [place] [address], [place] [address] Jun, [facility] [address] [id number] [address] [place] [address], [place] [address] Jun, [facility] [address] [id number] [address] [place] [address], [place] [address] Jun, [facility] [address] [id number] [address] [place] [address], [place] [address] Jun, [facility] [address] [id number] [address] [place] [address], [place] [address] May, [facility] [address] [id number] [address] [place] [address], [place] [address] May, [facility] [address] [id number] [address] [place] [address], [place] [address] May, [facility] [address] [id number] [address] [place] [address], [place] [address] May, [facility] [address] [id number] [address] [place] [address], [place] [address] May, [facility] [address] [id number] [address] [place] [address], [place] [address] May, [facility] [address] [id number] [address] [place] [address], [place] [address] Apr, [facility] [address] [id number] [address] [place] [address], [place] [address] Apr, [facility] [address] [id number] [address] [place] [address], [place] [address] Apr, [facility] [address] [id number] [address] [place] [address], [place] [address] Apr, [facility] [address] [id number] [address] [place] [address], [place] [address] Apr, [facility] [address] [id number] [address] [place] [address], [place] [address] Apr, [facility] [address] [id number] [address] [place] [address], [place] [address] Mar, [facility] [address] [id number] [address] [place] [address], [place] [address] Mar, [facility] [address] [id number] [address] [place] [address], [place] [address] Mar, [facility] [address] [id number] [address] [place] [address], [place] [address] Mar, [facility] [address] [id number] [address] [place] [address], [place] [address] Mar, [facility] [address] [id number] [address] [place] [address], [place] [address] Mar, [facility] [address] [id number] [address] [place] [address], [place] [address] Mar, [facility] [address] [id number] [address] [place] [address], [place] [address] Mar, [facility] [address] [id number] [address] [place] [address], [place] [address] Mar, [facility] [address] [id number] [address] [place] [address], [place] [address] Mar, [facility] [address] [id number] [address] [place] [address], [place] [address] Mar, [facility] [address] [id number] [address] [place] [address], [place] [address] Mar, [facility] [address] [id number] [address] [place] [address], [place] [address] Feb, [facility] [address] [id number] [address] [place] [address], [place] [address] Feb, [facility] [address] [id number] [facility] [place] [address] Feb, [facility] [address] [id number] [address] [place] [address], [place] [address] Feb, [facility] [address] [id number] [address] [place] [address], [place] [address] Feb, [facility] [address] [id number] [address] [place] [address], [place] [address] Feb, [facility] [address] [id number] [address] [place] [address], [place] [address] Feb, [facility] [address] [id number] [address] [place] [address], [place] [address] Jan, [facility] [address] [id number] [address] [place] [address], [place] [address] Jan, [facility] [address] [id number] [address] [place] [address], [place] [address] Jan, [facility] [address] [id number] [address] [place] [address], [place] [address] Dec, [facility] [place] [facility] [address] [id number] [address] [place] [address], [place] [address] Dec, [facility] [place] [facility] [address] [id number] [address] [place] [address], [place] [address] Dec, [facility] [place] [facility] [address] [id number] [address] [place] [address], [place] [address] Dec, [facility] [place] [facility] [address] [id number] [address] [place] [address], [place] [address] Sep, [facility] [place] [facility] [address] [id number] [address] [place] [address], [place] [address] Sep, [facility] [place] [facility] [address] [id number] [address] [place] [address], [place] [address] Sep, [facility] [place] [facility] [address] [id number] [address] [place] [address] Sep, [facility] [address] [id number] [address] [place] [address], [place] [address] Sep, [facility] [address] [id number] [address] [place] [address], [place] [address] Sep, [facility] [address] [id number] [address] [place] [address], [place] [address] Sep, [facility] [address] [id number] [address] [place] [address], [place] [address] Sep, [facility] [address] [id number] [address] [place] [address], [place] [address] Aug, [facility] [address] [id number] [address] [place] [address], [place] [address] Aug, [facility] [address] [id number] [address] [place] [address], [place] [address] May, [facility] [address] [id number] [address] [place] [address], [place] [address] May, [facility] [address] [id number] [address] [place] [address], [place] [address] Apr, [facility] [address] [id number] [address] [place] [address], [place] [address] Apr, [facility] [address] [id number] [address] [place] [address], [place] [address] Apr, [facility] [address] [id number] [address] [place] [address], [place] [address] Apr, [facility] [address] [id number] [address] [place] [address], [place] [address] Apr, [facility] [address] [id number] [address] [place] [address], [place] [address] Apr, [facility] [address] [id number] [address] [place] [address], [place] [address] May, [facility] [place] [facility] [address] [id number] [address] [place] [address], [place] [address] 18 May, 2012 [facility] [address] [id number] [address] [place] [address], [place] [address] 15 May, 2012 [facility] [address] [id number] [address] [place] [address], [place] [address] 15 May, 2012 [facility] [address] [id number] [address] [place] [address], [place] [address] 13 May, 2012 [facility] [address] [id number] [address] [place] [address], [place] [address] 13 May, 2012 [facility] [address] [id number] [address] [place] [address], [place] [address] 13 Apr, 2012 [facility] [address] [id number] [address] [place] [address], [place] [address] 13 Apr, 2012 [facility] [address] [id number] [address] [place] [address], [place] [address] 08 Apr, 2012 [facility] [address] [id number] [address] [place] [address], [place] [address] Apr, [facility] [address] [id number] [address] [place] [address], [place] [address] Apr, [facility] [address] [id number] [address] [place] [address], [place] [address] Apr, [facility] [address] [id number] [address] [place] [address], [place] [address] Apr, [facility] [address] [id number] [address] [place] [address], [place] [address] Apr, [facility] [address] [id number] [address] [place] [address], [place] [address] Apr, [facility] [address] [id number] [address] [place] [address], [place] [address] Apr, [facility] [address] [id number] [address] [place] [address], [place] [address] Mar, [facility] [facility] [address] [id number] [address] [place] [address], [place] [address] Mar, [facility] [address] [id number] [address] [place] [address], [place] [address] Mar, [facility] [address] [id number] [address] [place] [address], [place] [address] Mar, [facility] [address] [id number] [address] [place] [address], [place] [address] Mar, [facility] [address] [id number] [address] [place] [address], [place] [address] Mar, [facility] [address] [id number] [address] [place] [address], [place] [address] Mar, [facility] [address] [id number] [address] [place] [address], [place] [address] Mar, [facility] [address] [id number] [address] [place] [address], [place] [address] Mar, [facility] [address] [id number] [address] [place] [address], [place] [address] Feb, [facility] [address] [id number] [address] [place] [address], [place] [address] 16 Feb, 2012 [facility] [address] [id number] [address] [place] [address], [place] [address] Feb, [facility] [address] [id number] [address] [place] [address] Jan, [facility] [address] [id number] [address] [place] [address], [place] [address] Jan, [facility] [address] [id number] [address] [place] [address], [place] [address] Jan, [facility] [address] [id number] [address] [place] [address], [place] [address] Jan, [facility] [address] [id number] [address] [place] [address], [place] [address] 17 Jan, 2012 [facility] [address] [id number] [address] [place] [address], [place] [address] Jan, [facility] [address] [id number] [address] [place] [address], [place] [address] 16 Jan, 2012 [facility] [address] [id number] [address] [place] [address], [place] [address] Jan, [facility] [address] [id number] [address] [place] [address], [place] [address] Jan, [facility] [address] [id number] [address] [place] [address], [place] [address] Jan, [facility] [address] [id number] [address] [place] [address], [place] [address] Dec, [facility] [address] [id number] [address] [place] [address], [place] [address] Dec, [facility] [address] [id number] [address] [place] [address], [place] [address] Dec, [facility] [address] [id number] [address] [place] [address], [place] [address] Dec, [facility] [address] [id number] [address] [place] [address], [place] [address] Nov, [facility] [address] [id number] [address] [place] [address], [place] [address] Nov, [facility] [address] [id number] [address] [place] [address], [place] [address] Nov, [facility] [address] [id number] [address] [place] [address], [place] [address] October, [facility] [address] [id number] [address] [place] [address], [place] [address] October, [facility] [address] [id number] [address] [place] [address], [place] [address] October, [facility] [address] [id number] [address] [place] [address] October, [facility] [address] [id number] [address] [place] [address] October, [facility] [address] [id number] [address] [place] [address] October, [facility] [address] [id number] [address] [place] [address] Aug, [facility] [address] [id number] [address] [place] [address] Mar, [facility] [address] [id number] [address] [place] [address] Nov, [facility] [address] [id number] [address] [place] [address] May, [facility] [address] [id number] [address] [place] [address] May, [facility] [address] [id number] [address] [place] [address] Apr, [facility] [address] [id number] [address] [place] [address] Mar, [facility] [address] [id number] [address] [place] [address] Mar, IMMUNIZATIONS No Known Immunizations SOCIAL HISTORY Never Assessed REASON FOR VISIT f/u PLAN OF CARE Activity Details Follow Up 1 Week Reason: F/U VITAL SIGNS MEDICATIONS Unknown Medications RESULTS No Results PROCEDURES Procedure Date Ordered Result Body Site [facility] VISIT MENTAL HEALTH ESTAB PT Jul 25, 2017 Psychotherapy, patient &/family, 30 minutes, established patient Jul 25, 2017 visit needs to be added to the same day medical Jul 25, 2017 INSTRUCTIONS MEDICATIONS ADMINISTERED No Known [...]
--- OUTSIDE RECORDS SUMMARY | 2019-06-19 05:50 | XMS REPORT ---
Author Author Sydnie MORTON Organization [facility] Address [address] [place] [address] Care Team Providers Care Humane Agent Name Role Phone JOHN MORTON Unavailable PROBLEMS Type Condition ICD9-CM Code SXL45-JA Code Onset Dates Condition S tatus SNOMED Code Problem Hormone replacement therapy Z79.890 Ac tive 464930759 Problem Abnormal CT scan, head R93.0 Active 162202953 Problem Sensorineural hearing loss (SNHL) of both ears H90 .3 Active 816449067 Problem History of colon polyps Z86.010 Active 279567227 Problem Bruising, spontaneous R23.3 Active 608399084 Problem Generalized anxiety disorder F41.1 A ctive 11745053 Problem Arthralgia of hip, unspecified laterality M25.559 Active 73314452 Problem Hematuria, unspecified type R31.9 Ac tive 06262834 Problem Imbalance R26.89 Active 168021253 Problem Hammer toe of right foot M20.41 Activ e 633428896 Problem Plantar wart of right foot B07.0 Act mitchell [id number] Problem Sciatica of left side M54.32 Active 80864600 Problem Hyperlipidemia, unspecified hyperlipidemia type E7 8.5 Active 28552867 Problem Hypertension I10 Active 2865328 3 Problem Night sweats R61 Active 3650835 0 Problem Fibromyalgia M79.7 Active 4159961 7 Problem Major depressive disorder, recurrent episode, moderate F33.1 Active 856035042 Problem Acute left-sided low back pain with left-sided sciatica M54.42 Active 078481652 Problem Bladder spasm N32.89 Active 465111 006 Problem Gastritis without bleeding, unspecified chronicity, unspecified gastritis type K29.70 Active 992721835 Problem Bipolar 1 disorder, mixed F31.60 Acti ve 37118135 Problem Grief F43.20 Active 90985380 Problem Other chronic pain G89.29 Active 8 7381731 Problem Allergic rhinitis J30.9 Active 61 141319 Problem Hot flashes due to menopause N95.1 A ctive 209175759 Problem Ataxia R27.0 Active 18048542 Problem Hearing loss, unspecified laterality H91.90 Active 38025153 ALLERGIES No Information ENCOUNTERS Encounter Location Date Diagnosis [facility] [address] [facility] [id number] [address] [place] [phone] Dec, [facility] [address] [facility] [id number] [address] [place] [phone] Nov, [facility] [address] [facility] [id number] [address] [place] [phone] October, [facility] [address] [facility] [id number] [address] [place] [phone] October, [facility] [address] [place] [id number] [address] [place] [id number] Sep, [facility] [address] [facility] [id number] [address] [place] [phone] Sep, [facility] [address] [facility] [id number] [address] [place] [phone] Sep, Bipolar 1 disorder, mixed F3 1.60 [facility] [address] [place] [id number] [address] [place] [id number] Sep, Allergic rhinitis J30.9 and Sciatica of left side M54.32 [facility] [address] [facility] [id number] [address] [place] [phone] Sep, Bipolar 1 disorder, mixed F3 1.60 [facility] [address] [facility] [id number] [address] [place] [id number] Sep, Bipolar 1 disorder, mixed F3 1.60 and Generalized anxiety disorder F41.1 [facility] [address] [facility] [id number] [address] [place] [phone] Aug, [facility] [address] [facility] [id number] [address] [place] [id number] Aug, Bipolar 1 disorder, mixed F3 1.60 [facility] [address] [id number] [address] [place] [phone] Aug, Bipolar 1 disorder, mixed F3 1.60 [facility] [address] [facility] [id number] [address] [place] [phone] Aug, [facility] [address] [facility] [id number] [address] [place] [phone] Aug, Generalized anxiety disorder F41.1 [facility] [address] [id number] [address] [place] [id number] Aug, Bipolar 1 disorder, mixed F3 1.60 [facility] [address] [facility] [id number] [address] [place] [phone] Aug, Plantar wart of right foot B 07.0 [facility] [address] [facility] [id number] [address] [place] [phone] Aug, Bipolar 1 disorder, mixed F3 1.60 [facility] [address] [facility] [id number] [address] [place] [phone] Jul, Bipolar 1 disorder, mixed F3 1.60 [facility] [address] [facility] [id number] [address] [place] [phone] Jul, [facility] [address] [facility] [id number] [address] [place] [phone] 14 Jul, 2017 Bipolar 1 disorder, mixed F3 1.60 [facility] [address] [facility] [id number] [address] [place] [phone] Jul, Generalized anxiety disorder F41.1 [facility] [address] [facility] [id number] [address] [place] [id number] Jul, Bipolar 1 disorder, mixed F3 1.60 [facility] [address] [facility] [id number] [address] [place] [id number] 07 Jul, 2017 Acute left-sided low back pa in with left-sided sciatica M54.42 [place] [address] [place] [id number] [address] [place] [phone] Jul, Coccydynia M53.3 [place] [address] [address] Jun, Bipolar 1 disorder, mixed F3 1.60 [facility] [place] [address] [address] Jun, Acute nasopharyngitis J00 [place] [address] [address] Jun, Bipolar 1 disorder, mixed F3 1.60 [place] [address] [address] Jun, Fibromyalgia M79.7 [place] [address] [address] Jun, Bipolar 1 disorder, mixed F3 1.60 [place] [address] [address] Jun, Fibromyalgia M79.7 and Bipol ar 1 disorder, mixed F31.60 [place] [address] [address] May, Bipolar 1 disorder, mixed F3 1.60 ; Generalized anxiety disorder F41.1 and Other usp (current) drug therapy Z79.899 [place] [address] [address] May, Bipolar 1 disorder, mixed F3 1.60 [facility] [place] [address] [address] 14 May, 2017 Cough R05 and Body aches R52 [facility] [place] [address] [address] 10 May, 2017 Bladder spasm N32.89 and Acu te cystitis without hematuria N30.00 [place] [address] [address] May, Bipolar 1 disorder, mixed F3 1.60 [facility] [address] [place] [id number] Apr, [place] [address] [place] [address] Apr, Major depressive disorder, r ecurrent episode, moderate F33.1 and Encounter for immunization Z23 [facility] [address] [address] Apr, Bipolar 1 disorder, mixed F3 1.60 [place] [address] [place] [address] Apr, Bipolar 1 disorder, mixed F3 1.60 [place] [address] [id number] 16 Apr, 2017 Bipolar 1 disorder, mixed F3 1.60 [place] [address] [address] Apr, Yeast vaginitis B37.3 [place] [address] [address] 09 Apr, 2017 Bipolar 1 disorder, mixed F3 1.60 [facility] [address] [address] 07 Apr, [address]03[address] for immunization Z23 [facility] [address] [address] Apr, Bipolar 1 disorder, mixed F3 1.60 [facility] [address] [address] Mar, Bipolar 1 disorder, mixed F3 1.60 [place] [address] [address] Mar, Bipolar 1 disorder, mixed F3 1.60 [facility] [address] [address] Mar, Imbalance R26.89 and Encount er for immunization Z23 [place] [address] [place] [address] Mar, Generalized anxiety disorder F41.1 [place] [address] [place] [id number] [address] [place] [phone] Mar, Bipolar 1 disorder, mixed F3 1.60 [place] [address] [address] Mar, Generalized anxiety disorder F41.1 [place] [address] [address] Mar, Bipolar 1 disorder, mixed F3 1.60 [place] [address] [address] Mar, Bipolar 1 disorder, mixed F3 1.60 [place] [address] [address] Feb, Bipolar 1 disorder, mixed F3 1.60 [place] [address] [address] Feb, Bipolar 1 disorder, mixed F3 1.60 and Generalized anxiety disorder F41.1 [place] [address] [place] [id number] [address] [place] [id number] Feb, Gastritis without bleeding, unspecified chronicity, unspecified gastritis type K29.70 ; Hammer toe of right foot M20.41 and Other viral warts B07.8 [place] [address] [place] [id number] [address] [place] [phone] Feb, Bipolar 1 disorder, mixed F3 1.60 [place] [address] [place] [id number] [address] [place] [id number] Feb, Bipolar 1 disorder, mixed F3 1.60 [place] [address] [place] [id number] [address] [place] [id number] 05 Feb, 2017 Bipolar 1 disorder, mixed F3 1.60 [facility] [address] [facility] [id number] [address] [place] [phone] Jan, Encounter for screening mamm ogram for breast cancer Z12.31 ; Other viral warts B07.8 and Allergic rhinitis J30.9 [facility] [address] [facility] [id number] [address] [place] [id number] Jan, Bipolar 1 disorder, mixed F3 1.60 [facility] [address] [facility] [id number] [address] [place] [phone] Jan, Bipolar 1 disorder, mixed F3 1.60 [place] [address] [facility] [id number] [address] [place] [phone] Jan, [facility] [address] [facility] [id number] [address] [place] [phone] Jan, Bipolar 1 disorder, mixed F3 1.60 [place] [address] [facility] [id number] [address] [place] [id number] Jan, Bipolar 1 disorder, mixed F3 1.60 [facility] [address] [facility] [id number] [address] [place] [id number] Jan, Allergic rhinitis J30.9 ; He maturia R31.9 and Colon cancer screening Z12.11 [facility] [address] [facility] [id number] [address] [place] [phone] Dec, Bipolar 1 disorder, mixed F3 1.60 [facility] [address] [facility] [id number] [address] [place] [id number] Dec, Bipolar 1 disorder, mixed F3 1.60 ; Generalized anxiety disorder F41.1 and Other usp (current) drug therapy Z79.899 [facility] [address] [facility] [id number] [address] [place] [id number] Dec, Bipolar 1 disorder, mixed F3 1.60 [facility] [address] [facility] [id number] [address] [place] [id number] Dec, Bipolar 1 disorder, mixed F3 1.60 [facility] [address] [facility] [id number] [address] [place] [id number] Dec, Bipolar 1 disorder, mixed F3 1.60 [facility] [address] [facility] [id number] [address] [place] [id number] Dec, Low back pain M54.5 and Recu rrent urinary tract infection N39.0 [facility] [address] [facility] [id number] [address] [place] [phone] Nov, Bipolar 1 disorder, mixed F3 1.60 [facility] [address] [facility] [id number] [address] [place] [phone] Nov, Bipolar 1 disorder, mixed F3 1.60 [place] [address] [facility] [id number] [address] [place] [phone] Nov, Bipolar 1 disorder, mixed F3 1.60 [facility] [address] [place] [id number] [address] [place] [id number] Nov, Bipolar 1 disorder, mixed F3 1.60 [facility] [address] [facility] [id number] [address] [place] [phone] Nov, [place] [address] [place] [id number] [address] [place] [id number] Nov, Anesthesia of skin R20.0 ; F requent UTI N39.0 ; Tobacco abuse Z72.0 and Colon cancer screening Z12.11 [facility] [address] [facility] [id number] [address] [place] [phone] Nov, Bipolar 1 disorder, mixed F3 1.60 [facility] [address] [facility] [id number] [address] [place] [id number] October, Bipolar 1 disorder, mixed F3 1.60 [facility] [address] [facility] [id number] [address] [place] [id number] October, Bipolar 1 disorder, mixed F3 1.60 [facility] [address] [place] [id number] [address] [place] [id number] October, Bipolar 1 disorder, mixed F3 1.60 [place] [address] [address] October, Bipolar 1 disorder, mixed F3 1.60 [place] [address] [place] [id number] [place] [phone] October, Bipolar 1 disorder, mixed F3 1.60 [place] [address] [address] October, Cervicalgia M54.2 and Bipola r 1 disorder, mixed F31.60 [place] [address] [address] October, Hypertension I10 ; Hyperlipi demia, unspecified hyperlipidemia type E78.5 and Family history of thyroid disease Z83.49 [place] [address] [address] October, [place] [address] [address] October, Hypertension I10 ; Hyperlipi demia, unspecified hyperlipidemia type E78.5 and Family history of thyroid problem Z83.49 [place] [address] [address] October, Bipolar 1 disorder, mixed F3 1.60 [place] [address] [address] Sep, Bipolar 1 disorder, mixed F3 1.60 [place] [address] [place] [id number] [address] [place] [phone] Sep, Bipolar 1 disorder, mixed F3 1.60 [place] [address] [place] [id number] [place] [phone] Sep, Bipolar 1 disorder, mixed F3 1.60 [place] [address] [place] [id number] [address] [place] [phone] Sep, History of colon polyps Z86. 010 and Hematochezia K92.1 [facility] [address] [place] [id number] [address] [place] [id number] Sep, Major depressive disorder, r ecurrent episode, moderate F33.1 [facility] [address] [facility] [id number] [address] [place] [id number] Sep, Bipolar 1 disorder, mixed F3 1.60 [facility] [address] [place] [id number] [address] [place] [phone] Aug, Hot flashes due to menopause N95.1 [facility] [address] [place] [id number] [address] [place] [id number] Aug, Bipolar 1 disorder, mixed F3 1.60 [place] [address] [place] [id number] [address] [place] [phone] Aug, [facility] [address] [place] [id number] [address] [place] [id number] Aug, Bipolar 1 disorder, mixed F3 1.60 [place] [address] [place] [id number] [address] [place] [phone] Aug, Bipolar 1 disorder, mixed F3 1.60 [place] [address] [place] [id number] [address] [place] [phone] Aug, Hot flashes due to menopause N95.1 ; Cervicalgia M54.2 and Ataxia R27.0 [facility] [address] [facility] [id number] [address] [place] [id number] Jul, Bipolar 1 disorder, mixed F3 1.60 [place] [address] [place] [id number] [address] [place] [id number] Jul, Bipolar 1 disorder, mixed F3 1.60 [facility] [address] [place] [id number] [address] [place] [id number] Jul, Bipolar 1 disorder, mixed F3 1.60 [place] [address] [place] [id number] [address] [place] [address] 13 Jul, 2016 Bipolar 1 disorder, mixed F3 1.60 [place] [address] 10 Jul, 2016 Bipolar 1 disorder, mixed F3 1.60 [place] [address] [place] [address] 08 Jul, 2016 Cervicalgia M54.2 ; Tremor R 25.1 ; Hearing abnormally acute, unspecified laterality H93.239 ; Alopecia L65.9 ; Encounter for immunization Z23 and Family history of thyroid disease Z83.49 [place] [address] Jul, Bipolar 1 disorder, mixed F3 1.60 [place] [address] Jun, [place] [address] Jun, Hearing disorder, unspecifie d laterality H93.299 [place] [address] Jun, Bipolar 1 disorder, mixed F3 1.60 [place] [address] [address] Jun, Bipolar 1 disorder, mixed F3 1.60 [place] [address] [place] [address] Jun, Allergic rhinitis J30.9 [place] [address] [address] Jun, Bipolar 1 disorder, mixed F3 1.60 [place] [address] [place] [address] Jun, Bipolar 1 disorder, mixed F3 1.60 [place] [address] [address] Jun, Allergic rhinitis J30.9 [facility] [address] [facility] [id number] [address] [place] [phone] Jun, Allergic rhinitis J30.9 [facility] [address] [facility] [id number] [address] [place] [address] Jun, Bipolar 1 disorder, mixed F3 1.60 [facility] [address] [facility] [id number] [address] [place] [id number] May, Bipolar 1 disorder, mixed F3 1.60 [facility] [address] [id number] [address] [place] [address] May, Bipolar 1 disorder, mixed F3 1.60 [facility] [address] [facility] [id number] [address] [place] [phone] May, [facility] [address] [facility] [id number] [address] [place] [phone] May, Bipolar 1 disorder, mixed F3 1.60 [facility] [address] [facility] [id number] [address] [place] [id number] May, Bipolar 1 disorder, mixed F3 1.60 [facility] [address] [facility] [id number] [address] [place] [phone] May, [facility] [address] [facility] [id number] [address] [place] [phone] May, [facility] [address] [facility] [id number] [address] [place] [phone] May, [facility] [address] [facility] [id number] [address] [place] [id number] May, Abdominal pain, unspecified location R10.9 [facility] [address] [facility] [id number] [address] [place] [phone] May, [facility] [address] [facility] [id number] [address] [place] [address] Apr, Hematuria R31.9 ; Ataxia R27 .0 and Hearing loss, unspecified laterality H91.90 [facility] [address] [place] [address] Apr, Bipolar 1 disorder, mixed F3 1.60 [facility] [address] [place] [id number] [address] [place] [id number] Apr, Acute effusion of both middl e ears H65.193 [facility] [address] [address] Apr, Hematuria R31.9 and Pyelonep hritis N12 [facility] [address] [address] Apr, [place] [address] [address] Mar, Bipolar 1 disorder, mixed F3 1.60 [facility] [address] [address] Mar, [facility] [address] [address] Mar, Bipolar 1 disorder, mixed F3 1.60 [place] [address] [address] Mar, Bipolar 1 disorder, mixed F3 1.60 [facility] [address] [address] Mar, Encounter for immunization Z 23 and Gastritis without bleeding, unspecified chronicity, unspecified gastritis type K29.70 [facility] [address] [place] [address] Mar, Bipolar 1 disorder, mixed F3 1.60 and Grief F43.20 [place] [address] [address] Mar, Gastritis without bleeding, unspecified chronicity, unspecified gastritis type K29.70 [place] [address] [id number] Mar, Bipolar 1 disorder, mixed F3 1.60 [place] [address] [facility] [id number] [address] [place], [place] [address] Mar, Gastritis without bleeding, unspecified chronicity, unspecified gastritis type K29.70 [facility] [address] [facility] [id number] [address] [place], [place] [id number] Mar, [place] [address] [place] [id number] [place] [address] Feb, Bipolar 1 disorder, mixed F3 1.60 [place] [address] [place] [id number] [place] [id number] Feb, Bipolar 1 disorder, mixed F3 1.60 and Grief F43.20 [place] [address] [place] [id number] [place] [id number] Feb, Gastritis without bleeding, unspecified chronicity, unspecified gastritis type K29.70 [place] [address] [place] [id number] [place] [id number] 14 Feb, 2016 Bipolar 1 disorder, mixed F3 1.60 [facility] [address] [place] [id number] [place] [id number] Feb, Gastroesophageal reflux dise ase, esophagitis presence not specified K21.9 [facility] [address] [place] [id number] [place] [id number] Jan, Bipolar 1 disorder, mixed F3 1.60 [place] [address] [place] [id number] [place] [id number] Jan, Bipolar 1 disorder, mixed F3 1.60 and Unsteady gait R26.81 [place] [address] [id number] [address] [place] [phone] Jan, Bipolar 1 disorder, mixed F3 1.60 [facility] [address] [id number] [address] [place] [phone] Jan, Bipolar 1 disorder, mixed F3 1.60 and 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 [facility] [address] [facility] [id number] [address] [place] [id number] Jan, Bipolar 1 disorder, mixed F3 1.60 [facility] [address] [id number] [address] [place] [id number] Jan, Bipolar 1 disorder, mixed F3 1.60 [facility] [address] [id number] [address] [place] [phone] Jan, Bipolar 1 disorder, mixed F3 1.60 ; Grief F43.20 and 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 [place] [address] [id number] [address] [place] [phone] Jan, Bipolar 1 disorder, mixed F3 1.60 [place] [address] [id number] [address] [place] [phone] Dec, [place] [id number] [place] [address] Dec, Bipolar 1 disorder, mixed F3 1.60 ; Vitamin D deficiency, unspecified E55.9 ; H/O allergic rhinitis Z87.09 ; Other chronic pain G89.29 and Dorsalgia, unspecified M54.9 [place] [address] [id number] [address] [place] [phone] Dec, [place] [address] [id number] [address] [place] [phone] Dec, Bipolar 1 disorder, mixed F3 1.60 [place] [address] [id number] [address] [place] [phone] Dec, Major depressive disorder, r ecurrent episode, moderate F33.1 [place] [address] [id number] [address] [place] [phone] Dec, Major depressive disorder, r ecurrent episode, moderate F33.1 [place] [address] [id number] [address] [place] [phone] Nov, [facility] [address] [facility] [id number] [address] [place] [phone] Nov, Bipolar 1 disorder, mixed F3 1.60 [place] [address] [facility] [id number] [address] [place] [phone] Nov, Major depressive disorder, r ecurrent episode, moderate F33.1 [place] [id number] [place] [phone] Nov, Cervicalgia M54.2 ; Arthralg ia of hip, unspecified laterality M25.559 ; Allergic rhinitis J30.9 and Hormone replacement therapy Z79.890 [facility] [address] [facility] [id number] [address] [place] [phone] Nov, Other seasonal allergic rhin itis J30.2 [place] [id number] [place] [phone] October, Major depressive disorder, r ecurrent episode, moderate F33.1 [place] [id number] [place] [phone] October, Major depressive disorder, r ecurrent episode, moderate F33.1 and Arthralgia of hip, unspecified laterality M25.559 [place] [id number] [place] [address] October, Grief F43.20 ; Hypertension I10 ; Hyperlipidemia, unspecified hyperlipidemia type E78.5 ; Other chronic pain G89.29 and Allergic rhinitis, unspecified allergic rhinitis type J30.9 [place] [id number] [place] [phone] October, Major depressive disorder, r ecurrent episode, moderate F33.1 [place] [address] [id number] [address] [place] [phone] Sep, Major depressive disorder, r ecurrent episode, moderate F33.1 [place] [id number] [place] [phone] Sep, [facility] [address] [facility] [id number] [address] [place] [phone] Sep, Major depressive disorder, r ecurrent episode, moderate F33.1 [facility] [address] [facility] [id number] [address] [place] [phone] Sep, Grief F43.20 [facility] [address] [id number] [address] [place] [phone] Aug, Major depressive disorder, r ecurrent episode, moderate F33.1 [place] [address] [id number] [address] [place] [phone] Aug, Bipolar 1 disorder, mixed F3 1.60 [place] [address] [id number] [address] [place] [phone] Aug, Allergic rhinitis J30.9 ; Ce rvicalgia M54.2 and Low back pain M54.5 [place] [address] [id number] [address] [place] [phone] Aug, Major depressive disorder, r ecurrent episode, moderate F33.1 [facility] [address] [id number] [address] [place] [phone] Aug, Sinusitis J32.9 and Tobacco 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 [facility] [address] [id number] [address] [place] [phone] Aug, [facility] [id number] [place] [phone] Aug, Depressive disorder, not els ewhere classified F32.9 ; Hormone replacement therapy Z79.[address] scan, head R93.0 [place] [address] [facility] [id number] [address] [place] [phone] Aug, Major depressive disorder, r ecurrent episode, moderate F33.1 [facility] [address] [facility] [id number] [address] [place] [phone] Jul, Major depressive disorder, r ecurrent episode, moderate F33.1 [facility] [address] [id number] [address] [place] [id number] 17 Jul, 2015 Abdominal pain R10.9 and Hyp ertension I10 [facility] [address] [id number] [address] [place] [phone] 08 Jul, 2015 [facility] [address] [id number] [address] [place] [id number] Jul, Major depressive disorder, r ecurrent episode, moderate F33.1 [facility] [address] [facility] [id number] [address] [place] [phone] Jul, [facility] [address] [facility] [id number] [address] [place] [phone] Jul, [facility] [address] [id number] [address] [place] [phone] Jun, [facility] [address] [id number] [address] [place] [id number] Jun, Depressive disorder, not els ewhere classified F32.9 [facility] [address] [id number] [address] [place] [id number] Jun, [facility] [address] [id number] [address] [place] [phone] Jun, [facility] [address] [id number] [address] [place] [id number] Jun, Arthralgia of hip, unspecifi ed laterality M25.559 ; Bruising, spontaneous R23.3 and Night sweats R61 [facility] [address] [facility] [id number] [address] [place] [phone] Jun, [facility] [address] [id number] [address] [place] [phone] Jun, [facility] [address] [id number] [address] [place] [phone] May, [facility] [address] [id number] [address] [place] [id number] May, Myalgia M79.1 and Screening, lipid Z13.220 [facility] [address] [facility] [id number] [address] [place] [phone] Apr, Status post cervical spinal fusion Z98.1 ; Fibromyalgia M79.7 and Unsteady gait R26.81 [facility] [address] [id number] [address] [place] [phone] Nov, [facility] [address] [id number] [address] [place] [phone] Nov, [facility] [address] [facility] [id number] [address] [place] [phone] October, [facility] [address] [facility] [id number] [address] [place] [phone] October, [facility] [address] [facility] [id number] [address] [place] [phone] October, [facility] [address] [facility] [id number] [address] [place] [id number] October, [facility] [address] [facility] [id number] [address] [place] [phone] October, [facility] [address] [facility] [id number] [address] [place] [phone] October, Dysuria 788.1 ; Nausea 787.0 2 and Urinary tract infection 599.0 [facility] [address] [facility] [id number] [address] [place] [phone] Sep, [facility] [address] [facility] [id number] [address] [place] [phone] Sep, [facility] [address] [facility] [id number] [address] [place] [phone] Aug, [facility] [address] [facility] [id number] [address] [place] [phone] 25 Aug, 2014 [facility] [address] [id number] [facility] [place] [address] 24 Aug, 2014 [facility] [address] [id number] [address] [place] [address], [place] [phone] 24 Aug, 2014 [facility] [address] [id number] [address] [place] [address], [place] [address] 23 Aug, 2014 [facility] [address] [id number] [address] [place] [address], [place] [id number] 19 Aug, 2014 [facility] [address] [id number] [address] [place] [address], [place] [id number] 19 Aug, 2014 [facility] [address] [id number] [address] [place] [address], [place] [address] 19 Aug, 2014 [facility] [address] [id number] [address] [place] [address], [place] [address] 19 Aug, 2014 [facility] [address] [id number] [address] [place] [address], [place] [address] 18 Aug, 2014 [facility] [address] [id number] [address] [place] [address], [place] [address] 18 Aug, 2014 [facility] [address] [id number] [address] [place] [address], [place] [id number] 13 Aug, 2014 [facility] [address] [id number] [address] [place] [address], [place] [address] 13 Aug, 2014 [facility] [address] [id number] [address] [place] [address], [place] [id number] 11 Aug, 2014 [facility] [address] [id number] [address] [place] [address], [place] [address] Aug, [facility] [address] [id number] [address] [place] [address], [place] [address] 06 Aug, 2014 [facility] [address] [id number] [address] [place] [address], [place] [address] 06 Aug, 2014 [facility] [address] [id number] [address] [place] [address], [place] [id number] 05 Aug, 2014 [facility] [address] [id number] [address] [place] [address], [place] [address] Aug, [facility] [address] [id number] [address] [place] [address], [place] [address] Aug, [facility] [address] [id number] [address] [place] [address], [place] [address] Aug, [facility] [address] [id number] [address] [place] [address], [place] [address] Aug, [facility] [address] [id number] [address] [place] [address], [place] [address] Jul, 2014 [facility] [address] [id number] [address] [place] [address], [place] [address] Jul, 2014 [facility] [address] [id number] [address] [place] [address], [place] [address] Jul, 2014 [facility] [address] [id number] [address] [place] [address], [place] [address] Jul, [facility] [address] [id number] [address] [place] [address], [place] [address] Jul, [facility] [address] [id number] [address] [place] [address], [place] [address] Jul, [facility] [address] [id number] [address] [place] [phone] Jul, 2014 [facility] [address] [id number] [address] [place] [address], [place] [address] Jul, 2014 [facility] [address] [id number] [address] [place] [address], [place] [address] Jul, 2014 [facility] [address] [id number] [address] [place] [address], [place] [address] Jul, 2014 [facility] [address] [id number] [address] [place] [phone] Jul, 2014 [facility] [address] [id number] [address] [place] [address], [place] [address] Jul, [facility] [address] [id number] [address] [place] [address], [place] [address] Jul, [facility] [address] [id number] [address] [place] [address], [place] [address] Jul, [facility] [address] [id number] [address] [place] [address], [place] [address] Jun, [facility] [address] [id number] [address] [place] [address], [place] [id number] Jun, [facility] [address] [id number] [address] [place] [address], [place] [address] Jun, [facility] [address] [id number] [address] [place] [address], [place] [address] Jun, [facility] [address] [id number] [address] [place] [address], [place] [address] Jun, [facility] [address] [id number] [address] [place] [address], [place] [address] Jun, [facility] [address] [id number] [address] [place] [address], [place] [address] May, [facility] [address] [id number] [address] [place] [address], [place] [address] May, [facility] [address] [id number] [address] [place] [address], [place] [address] May, [facility] [address] [id number] [address] [place] [address], [place] [address] May, [facility] [address] [id number] [address] [place] [address], [place] [address] May, [facility] [address] [id number] [address] [place] [address], [place] [address] May, [facility] [address] [id number] [address] [place] [address], [place] [address] Apr, [facility] [address] [id number] [address] [place] [address], [place] [address] Apr, [facility] [address] [id number] [address] [place] [address], [place] [address] Apr, [facility] [address] [id number] [address] [place] [address], [place] [address] Apr, [facility] [address] [id number] [address] [place] [address], [place] [address] Apr, [facility] [address] [id number] [address] [place] [address], [place] [address] Apr, [facility] [address] [id number] [address] [place] [address], [place] [address] Mar, [facility] [address] [id number] [address] [place] [address], [place] [address] Mar, [facility] [address] [id number] [address] [place] [address], [place] [address] Mar, [facility] [address] [id number] [address] [place] [address], [place] [address] Mar, [facility] [address] [id number] [address] [place] [address], [place] [address] Mar, [facility] [address] [id number] [address] [place] [address], [place] [address] Mar, [facility] [address] [id number] [address] [place] [address], [place] [address] Mar, [facility] [address] [id number] [address] [place] [address], [place] [address] Mar, [facility] [address] [id number] [address] [place] [address], [place] [address] Mar, [facility] [address] [id number] [address] [place] [address], [place] [address] Mar, [facility] [address] [id number] [address] [place] [address], [place] [address] Mar, [facility] [address] [id number] [address] [place] [address], [place] [address] Mar, [facility] [address] [id number] [address] [place] [address], [place] [address] 30 Feb, 2014 [facility] [address] [id number] [address] [place] [address], [place] [address] Feb, [facility] [address] [id number] [address] [place] [address], [place] [address] Feb, [facility] [address] [id number] [address] [place] [address], [place] [address] Feb, [facility] [address] [id number] [address] [place] [address], [place] [address] Feb, [facility] [address] [id number] [address] [place] [address], [place] [address] Feb, [facility] [address] [id number] [address] [place] [address], [place] [address] Feb, [facility] [address] [id number] [address] [place] [address], [place] [address] Jan, [facility] [address] [id number] [address] [place] [address], [place] [address] Jan, [facility] [address] [id number] [address] [place] [address], [place] [address] Jan, [facility] [address] [id number] [address] [place] [address], [place] [address] Dec, [facility] [address] [id number] [address] [place] [address], [place] [address] Dec, [facility] [address] [id number] [address] [place] [address], [place] [address] Dec, [facility] [address] [id number] [address] [place] [address], [place] [address] Dec, [facility] [address] [id number] [address] [place] [address], [place] [address] Sep, [facility] [address] [id number] [address] [place] [address], [place] [address] Sep, [facility] [address] [id number] [address] [place] [address], [place] [address] Sep, [facility] [address] [id number] [address] [place] [address], [place] [address] Sep, [facility] [address] [id number] [address] [place] [address], [place] [address] Sep, [facility] [address] [id number] [address] [place] [address], [place] [address] Sep, [facility] [address] [id number] [address] [place] [address], [place] [address] Sep, [facility] [address] [id number] [address] [place] [address], [place] [address] Sep, [facility] [address] [id number] [address] [place] [address], [place] [address] Aug, [facility] [address] [id number] [address] [place] [address], [place] [address] Aug, [facility] [address] [id number] [address] [place] [address], [place] [address] May, [facility] [address] [id number] [address] [place] [address], [place] [address] May, [facility] [address] [id number] [address] [place] [address], [place] [address] Apr, [facility] [address] [id number] [address] [place] [address], [place] [address] Apr, [facility] [address] [id number] [address] [place] [address], [place] [address] Apr, [facility] [address] [id number] [address] [place] [address], [place] [address] Apr, [facility] [address] [id number] [address] [place] [address], [place] [address] Apr, [facility] [address] [id number] [address] [place] [address], [place] [address] Apr, [facility] [address] [id number] [address] [place] [address], [place] [address] May, [facility] [address] [id number] [address] [place] [address], [place] [id number] 18 May, 2012 [facility] [address] [id number] [address] [place] [address], [place] [id number] 15 May, 2012 [facility] [address] [id number] [address] [place] [address], [place] [address] May, [facility] [address] [id number] [address] [place] [address], [place] [address] May, [facility] [address] [id number] [address] [place] [address], [place] [address] May, [facility] [address] [id number] [address] [place] [address], [place] [address] Apr, [facility] [address] [id number] [address] [place] [address], [place] [address] Apr, [facility] [address] [id number] [address] [place] [address], [place] [address] Apr, [facility] [address] [id number] [address] [place] [address], [place] [address] Apr, [facility] [address] [id number] [address] [place] [address], [place] [address] Apr, [facility] [address] [id number] [address] [place] [address], [place] [address] Apr, [facility] [address] [id number] [address] [place] [id number] Apr, [facility] [address] [id number] [address] [place] [address], [place] [id number] Apr, [facility] [address] [id number] [address] [place] [id number] Apr, [facility] [address] [id number] [address] [place] [id number] Apr, [facility] [address] [id number] [address] [place] [id number] Mar, [facility] [address] [id number] [address] [place] [address], [place] [address] Mar, [facility] [address] [id number] [address] [place] [id number] Mar, [facility] [address] [id number] [address] [place] [id number] Mar, [facility] [address] [id number] [address] [place] [id number] Mar, [facility] [address] [id number] [address] [place] [id number] Mar, [facility] [address] [id number] [address] [place] [id number] Mar, [facility] [address] [id number] [address] [place] [id number] Mar, [facility] [address] [id number] [address] [place] [phone] Mar, [facility] [address] [id number] [address] [place] [id number] 25 Feb, 2012 [facility] [address] [address] [id number] [address] [place] [id number] 16 Sep2011 [facility] [address] [id number] [address] [place] [address], [place] [phone] 11 Feb, 2012 [facility] [address] [id number] [address] [place] [address], [place] [phone] Jan, [facility] [address] [id number] [address] [place] [address], [place] [id number] Jan, [facility] [address] [id number] [address] [place] [address], [place] [id number] Jan, [facility] [address] [id number] [address] [place] [address], [place] [phone] Jan, [facility] [address] [id number] [address] [place] [address], [place] [id number] Jan, [facility] [address] [id number] [address] [place] [address], [place] [id number] Jan, [facility] [address] [id number] [address] [place] [address], [place] [id number] 16 Jan, 2012 [facility] [address] [id number] [address] [place] [address], [place] [phone] Jan, [facility] [address] [id number] [address] [place] [address], [place] [phone] Jan, [facility] [address] [id number] [address] [place] [address], [place] [phone] Jan, [facility] [address] [id number] [address] [place] [address], [place] [address] Dec, [facility] [address] [id number] [address] [place] [address], [place] [id number] Dec, [facility] [address] [id number] [address] [place] [address], [place] [address] Dec, [facility] [address] [id number] [address] [place] [address], [place] [id number] Dec, [facility] [address] [id number] [address] [place] [address], [place] [address] Nov, [facility] [address] [id number] [address] [place] [address], [place] [phone] Nov, [facility] [address] [id number] [address] [place] [phone] Nov, [facility] [address] [id number] [address] [place] [phone] October, [facility] [address] [id number] [address] [place] [address], [place] [phone] October, [facility] [address] [id number] [address] [place] [phone] October, [facility] [address] [id number] [address] [place] [address], [place] [phone] October, [facility] [address] [id number] [address] [place] [phone] October, [facility] [address] [id number] [address] [place] [address], [place] [id number] October, [facility] [address] [id number] [address] [place] [phone] Aug, [facility] [address] [id number] [address] [place] [phone] Mar, [facility] [address] [id number] [address] [place] [phone] Nov, [facility] [address] [id number] [address] [place] [phone] May, [facility] [address] [id number] [address] [place] [phone] May, [facility] [address] [id number] [address] [place] [phone] Apr, [facility] [address] [id number] [address] [place] [id number] Mar, [facility] [address] [id number] [address] [place] [id number] Mar, IMMUNIZATIONS No Known Immunizations SOCIAL HISTORY Never Assessed REASON FOR VISIT f/u PLAN OF CARE Activity Details Follow Up 1 Week Reason: F/U VITAL SIGNS MEDICATIONS Unknown Medications RESULTS No Results PROCEDURES Procedure Date Ordered Result Body Site [facility] VISIT MENTAL HEALTH ESTAB PT Feb 28, 2017 Psychotherapy, patient &/family, 45 minutes, established pat ient Feb 28, 2017 INSTRUCTIONS MEDICATIONS ADMINISTERED No Known [...]
--- OUTSIDE RECORDS SUMMARY | 2019-06-19 05:50 | XMS REPORT ---
Author Author Sydnie HANCOCK [facility] Address [address] [place] [address] Care Team Providers Care Last Putter Away Name Role Phone NAHOMY HANCOCK Unavailable PROBLEMS Type Condition ICD9-CM Code GWI13-KG Code Onset Dates Condition S tatus SNOMED Code Problem Hormone replacement therapy Z79.890 Ac tive 940876485 Problem Abnormal CT scan, head R93.0 Active 284879582 Problem Hot flashes due to menopause N95.1 A ctive 464995905 Problem Sensorineural hearing loss (SNHL) of both ears H90 .3 Active 108609783 Problem History of colon polyps Z86.010 Active 605694062 Problem Bruising, spontaneous R23.3 Active 789017402 Problem Generalized anxiety disorder F41.1 A ctive 11192964 Problem Hammer toe of right foot M20.41 Activ e 314651956 Problem Hematuria, unspecified type R31.9 Ac tive 41770451 Problem Plantar wart of right foot B07.0 Act mitchell [id number] Problem Acute left-sided low back pain with left-sided sciatica M54.42 Active 205624227 Problem Hypertension I10 Active 0570937 3 Problem Arthralgia of hip, unspecified laterality M25.559 Active 55244724 Problem Night sweats R61 Active 6635094 0 Problem Major depressive disorder, recurrent episode, moderate F33.1 Active 750549459 Problem Imbalance R26.89 Active 558352755 Problem Bladder spasm N32.89 Active 073651 006 Problem Fibromyalgia M79.7 Active 2601686 7 Problem Other chronic pain G89.29 Active 8 6071110 Problem Gastritis without bleeding, unspecified chronicity, unspecified gastritis type K29.70 Active 446313030 Problem Hyperlipidemia, unspecified hyperlipidemia type E7 8.5 Active 26455626 Problem Grief F43.20 Active 47800992 Problem Ataxia R27.0 Active 75305345 Problem Allergic rhinitis J30.9 Active 61 758896 Problem Bipolar 1 disorder, mixed F31.60 Acti ve 65956017 Problem Hearing loss, unspecified laterality H91.90 Active 38027051 ALLERGIES Substance Reaction Event Type Date Status Morphine Sulfate Unknown Drug Allergy Nov, Active Iodine Unknown Drug Allergy Nov, Active Cipro burning stomach Drug Allergy Nov, Active Lyrica 75 Mg Capsule Unknown Non Drug Allergy Nov, Act mitchell ENCOUNTERS Encounter Location Date Diagnosis [facility] [id number] [place] [address] Sep, [facility] [id number] [place] [address] Sep, [facility] [id number] [place] [address] Sep, [facility] [id number] [place] [address] Sep, [facility] [id number] [place] [address] Aug, [facility] [id number] [place] [address] Aug, Bipolar 1 disorder, mixed F3 1.60 [facility] [id number] [place] [address] Aug, [facility] [id number] [place] [address] Aug, Generalized anxiety disorder F41.1 [facility] [address] [facility] [id number] [address] [place] [address] Aug, Bipolar 1 disorder, mixed F3 1.60 [facility] [id number] [place] [address] Aug, Plantar wart of right foot B 07.0 [facility] [id number] [place] [address] Aug, Bipolar 1 disorder, mixed F3 1.60 [facility] [address] [facility] [id number] [address] [place] [address] Jul, Bipolar 1 disorder, mixed F3 1.60 [facility] [address] [facility] [id number] [address] [place] [address] Jul, [facility] [address] [facility] [id number] [address] [place] [id number] 14 Jul, 2017 Bipolar 1 disorder, mixed F3 1.60 [facility] [address] [facility] [id number] [address] [place] [address] 09 Jul, 2017 Generalized anxiety disorder F41.1 [facility] [address] [facility] [id number] [address] [place] [id number] 07 Jul, 2017 Bipolar 1 disorder, mixed F3 1.60 [facility] [address] [facility] [id number] [address] [place] [id number] 07 Jul, 2017 Acute left-sided low back pa in with left-sided sciatica M54.42 [facility] [address] [facility] [id number] [address] [place] [id number] 05 Jul, 2017 Coccydynia M53.3 [facility] [address] [facility] [id number] [address] [place] [address] Jun, Bipolar 1 disorder, mixed F3 1.60 [facility] [address] [facility] [id number] [address] [place] [address] Jun, Acute nasopharyngitis J00 [facility] [address] [facility] [id number] [address] [place] [address] Jun, Bipolar 1 disorder, mixed F3 1.60 [facility] [address] [facility] [id number] [address] [place] [address] Jun, Fibromyalgia M79.7 [facility] [address] [facility] [id number] [address] [place] [address] Jun, Bipolar 1 disorder, mixed F3 1.60 [facility] [address] [address] 08 Jun, 2017 Fibromyalgia M79.7 and Bipol ar 1 disorder, mixed F31.60 [place] [address] [address] May, Bipolar 1 disorder, mixed F3 1.60 ; Generalized anxiety disorder F41.1 and Other fpc (current) drug therapy Z79.899 [place] [address] [address] May, Bipolar 1 disorder, mixed F3 1.60 [facility] [place] [id number] [address] 14 May, 2017 Cough R05 and Body aches R52 [facility] [place] [address] [address] 10 May, 2017 Bladder spasm N32.89 and Acu te cystitis without hematuria N30.00 [place] [address] [address] 07 May, 2017 Bipolar 1 disorder, mixed F3 1.60 [place] [address] [address] Apr, [place] [address] [address] Apr, Major depressive disorder, r ecurrent episode, moderate F33.1 and Encounter for immunization Z23 [place] [address] [address] Apr, Bipolar 1 disorder, mixed F3 1.60 [place] [address] [address] Apr, Bipolar 1 disorder, mixed F3 1.60 [place] [address] [address] 16 Apr, 2017 Bipolar 1 disorder, mixed F3 1.60 [place] [address] [address] 13 Apr, 2017 Yeast vaginitis B37.3 [facility] [address] [address] 09 Apr, 2017 Bipolar 1 disorder, mixed F3 1.60 [facility] [id number] [place] [address] 07 Apr, [address] L03[address] for immunization Z23 [facility] [address] [address] Apr, Bipolar 1 disorder, mixed F3 1.60 [facility] [address] [address] Mar, Bipolar 1 disorder, mixed F3 1.60 [place] [address] [address] Mar, Bipolar 1 disorder, mixed F3 1.60 [facility] [address] [address] Mar, Imbalance R26.89 [address] Encount er for immunization Z23 [facility] [address] [address] Mar, Generalized anxiety disorder F41.1 [place] [address] [address] Mar, Bipolar 1 disorder, mixed F3 1.60 [facility] [address] [address] Mar, Generalized anxiety disorder F41.1 [facility] [address] [address] Mar, Bipolar 1 disorder, mixed F3 1.60 [facility] [address] [address] Mar, Bipolar 1 disorder, mixed F3 1.60 [facility] [address] [address] 27 Feb, 2017 Bipolar 1 disorder, mixed F3 1.60 [place] [address] [facility] [id number] [address] [place] [address] 25 Feb, 2017 Bipolar 1 disorder, mixed F3 1.60 and Generalized anxiety disorder F41.1 [place] [address] [place] [id number] [place] [address] 21 Feb, 2017 Gastritis without bleeding, unspecified chronicity, unspecified gastritis type K29.70 ; Hammer toe of right foot M20.41 and Other viral warts B07.8 [place] [address] [facility] [id number] [address] [place] [address] 20 Feb, 2017 Bipolar 1 disorder, mixed F3 1.60 [place] [address] [facility] [id number] [address] [place] [address] 13 Feb, 2017 Bipolar 1 disorder, mixed F3 1.60 [place] [address] [place] [id number] [place] [address] 05 Feb, 2017 Bipolar 1 disorder, mixed F3 1.60 [place] [address] [facility] [id number] [address] [place] [address] 31 Jan, 2017 Encounter for screening mamm ogram for breast cancer Z12.31 ; Other viral warts B07.8 and Allergic rhinitis J30.9 [place] [address] [facility] [id number] [address] [place] [address] Jan, Bipolar 1 disorder, mixed F3 1.60 [place] [address] [facility] [id number] [address] [place] [address] Jan, Bipolar 1 disorder, mixed F3 1.60 [place] [address] [facility] [id number] [address] [place] [address] 14 Jan, 2017 [place] [address] [facility] [id number] [address] [place] [address] Jan, Bipolar 1 disorder, mixed F3 1.60 [place] [address] [place] [id number] [place] [address] Jan, Bipolar 1 disorder, mixed F3 1.60 [place] [address] [place] [id number] [place] [address] Jan, Allergic rhinitis J30.9 ; He maturia R31.9 and Colon cancer screening Z12.11 [place] [address] [id number] [place] [address] Dec, Bipolar 1 disorder, mixed F3 1.60 [place] [address] [place] [id number] [place] [address] Dec, Bipolar 1 disorder, mixed F3 1.60 ; Generalized anxiety disorder F41.1 and Other 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 designer (current) drug therapy Z79.899 [place] [address] [place] [id number] [place] [address] Dec, Bipolar 1 disorder, mixed F3 1.60 [place] [address] [place] [id number] [place] [address] Dec, Bipolar 1 disorder, mixed F3 1.60 [place] [address] [place] [id number] [place] [address] Dec, Bipolar 1 disorder, mixed F3 1.60 [place] [address] [place] [id number] [place] [address] Dec, Low back pain M54.5 and Recu rrent urinary tract infection N39.0 [place] [address] [place] [id number] [place] [address] Nov, Bipolar 1 disorder, mixed F3 1.60 [place] [address] [place] [id number] [place] [address] Nov, Bipolar 1 disorder, mixed F3 1.60 [place] [address] [id number] [place] [address] Nov, Bipolar 1 disorder, mixed F3 1.60 [place] [address] [place] [id number] [place] [address] Nov, Bipolar 1 disorder, mixed F3 1.60 [place] [address] [place] [id number] Nov, [place] [address] [place] [address] Nov, Anesthesia of skin R20.0 ; F requent UTI N39.0 ; Tobacco abuse Z72.0 and Colon cancer screening Z12.11 [place] [address] [place] [address] Nov, Bipolar 1 disorder, mixed F3 1.60 [place] [address] October, Bipolar 1 disorder, mixed F3 1.60 [place] [address] [place] [address] October, Bipolar 1 disorder, mixed F3 1.60 [place] [address] [address] October, Bipolar 1 disorder, mixed F3 1.60 [place] [address] [place] [id number] October, Bipolar 1 disorder, mixed F3 1.60 [place] [address] [address] October, Bipolar 1 disorder, mixed F3 1.60 [place] [address] [address] October, Cervicalgia M54.2 and Bipola r 1 disorder, mixed F31.60 [place] [address] [place] [address] October, Hypertension I10 ; Hyperlipi demia, unspecified hyperlipidemia type E78.5 and Family history of thyroid disease Z83.49 [place] [address] [address] October, [place] [address] [address] October, Hypertension I10 ; Hyperlipi demia, unspecified hyperlipidemia type E78.5 and Family history of thyroid problem Z83.49 [place] [address] [place] [id number] [place] [address] October, Bipolar 1 disorder, mixed F3 1.60 [place] [address] [address] Sep, Bipolar 1 disorder, mixed F3 1.60 [place] [address] [address] Sep, Bipolar 1 disorder, mixed F3 1.60 [place] [address] [address] Sep, Bipolar 1 disorder, mixed F3 1.60 [place] [address] [address] Sep, History of colon polyps Z86. 010 and Hematochezia K92.1 [place] [address] [address] Sep, Major depressive disorder, r ecurrent episode, moderate F33.1 [place] [address] [address] Sep, Bipolar 1 disorder, mixed F3 1.60 [place] [address] [place] [id number] [place] [address] Aug, Hot flashes due to menopause N95.1 [place] [address] [address] Aug, Bipolar 1 disorder, mixed F3 1.60 [place] [address] [place] [id number] [place] [address] Aug, [place] [address] [address] Aug, Bipolar 1 disorder, mixed F3 1.60 [facility] [address] [address] Aug, Bipolar 1 disorder, mixed F3 1.60 [facility] [address] [address] Aug, Hot flashes due to menopause N95.1 ; Cervicalgia M54.2 and Ataxia R27.0 [place] [address] [address] Jul, Bipolar 1 disorder, mixed F3 1.60 [place] [address] [place] [address] Jul, Bipolar 1 disorder, mixed F3 1.60 [place] [address] [address] Jul, Bipolar 1 disorder, mixed F3 1.60 [place] [address] [address] Jul, Bipolar 1 disorder, mixed F3 1.60 [place] [address] [address] Jul, Bipolar 1 disorder, mixed F3 1.60 [place] [address] [address] Jul, Cervicalgia M54.2 ; Tremor R 25.1 ; Hearing abnormally acute, unspecified laterality H93.239 ; Alopecia L65.9 ; Encounter for immunization Z23 and Family history of thyroid disease Z83.49 [place] [address] [address] Jul, Bipolar 1 disorder, mixed F3 1.60 [place] [address] [address] Jun, [place] [address] [address] Jun, Hearing disorder, unspecifie d laterality H93.299 [facility] [address] [id number] [address] [place] [address] Jun, Bipolar 1 disorder, mixed F3 1.60 [facility] [address] [id number] [address] [place] [address] Jun, Bipolar 1 disorder, mixed F3 1.60 [facility] [address] [facility] [id number] [address] [place] [address] Jun, Allergic rhinitis J30.9 [facility] [address] [id number] [address] [place] [address] Jun, Bipolar 1 disorder, mixed F3 1.60 [facility] [address] [id number] [address] [place] [address] Jun, Bipolar 1 disorder, mixed F3 1.60 [facility] [address] [facility] [id number] [address] [place] [address] Jun, Allergic rhinitis J30.9 [facility] [address] [id number] [address] [place] [address] Jun, Allergic rhinitis J30.9 [facility] [address] [facility] [id number] [address] [place] [address] Jun, Bipolar 1 disorder, mixed F3 1.60 [facility] [address] [facility] [id number] [address] [place] [address] May, Bipolar 1 disorder, mixed F3 1.60 [facility] [address] [id number] [address] [place] [address] May, Bipolar 1 disorder, mixed F3 1.60 [facility] [address] [facility] [id number] [address] [place] [address] May, [facility] [address] [facility] [id number] [address] [place] [address] May, Bipolar 1 disorder, mixed F3 1.60 [facility] [address] [facility] [id number] [address] [place] [address] May, Bipolar 1 disorder, mixed F3 1.60 [facility] [address] [facility] [id number] [place] [address] May, [facility] [address] [facility] [id number] [address] [place] [address] May, [facility] [address] [place] [id number] [place] [address] May, [facility] [address] [place] [id number] [place] [address] May, Abdominal pain, unspecified location R10.9 [facility] [address] [place] [id number] [place] [address] May, [facility] [address] [address] Apr, Hematuria R31.9 ; Ataxia R27 .0 and Hearing loss, unspecified laterality H91.90 [facility] [address] [place] [id number] [place] [address] Apr, Bipolar 1 disorder, mixed F3 1.60 [facility] [address] [id number] [place] [address] Apr, Acute effusion of both middl e ears H65.193 [facility] [address] [place] [id number] [place] [address] Apr, Hematuria R31.9 and Pyelonep hritis N12 [facility] [address] [facility] [id number] [address] [place] [address] Apr, [facility] [address] [place] [id number] [place] [address] Mar, Bipolar 1 disorder, mixed F3 1.60 [facility] [address] [place] [id number] [place] [address] Mar, [place] [address] [place] [id number] [place] [address] Mar, Bipolar 1 disorder, mixed F3 1.60 [place] [address] [place] [id number] [place], [place] [address] Mar, Bipolar 1 disorder, mixed F3 1.60 [place] [address] [place] [id number] [place] [address] Mar, Encounter for immunization Z 23 and Gastritis without bleeding, unspecified chronicity, unspecified gastritis type K29.70 [place] [address] [place] [id number] [place] [address] Mar, Bipolar 1 disorder, mixed F3 1.60 and Grief F43.20 [place] [address] [place] [id number] [place] [address] Mar, Gastritis without bleeding, unspecified chronicity, unspecified gastritis type K29.70 [place] [id number] [place] [address] Mar, Bipolar 1 disorder, mixed F3 1.60 [place] [address] [place] [id number] [address] [place] [address] Mar, Gastritis without bleeding, unspecified chronicity, unspecified gastritis type K29.70 [place] [address] [place] [id number] [place] [address] Mar, [place] [address] [place] [id number] [place] [address] Feb, Bipolar 1 disorder, mixed F3 1.60 [place] [address] [place] [id number] [place] [address] Feb, Bipolar 1 disorder, mixed F3 1.60 and Grief F43.20 [place] [address] [place] [id number] [place] [address] Feb, Gastritis without bleeding, unspecified chronicity, unspecified gastritis type K29.70 [place] [address] [place] [id number] [place] [address] Feb, Bipolar 1 disorder, mixed F3 1.60 [facility] [address] [facility] [id number] [address] [place], [place] [address] Feb, Gastroesophageal reflux dise ase, esophagitis presence not specified K21.9 [facility] [address] [facility] [id number] [address] [place] [address] Jan, Bipolar 1 disorder, mixed F3 1.60 [facility] [address] [facility] [id number] [address] [place] [address] Jan, Bipolar 1 disorder, mixed F3 1.60 and Unsteady gait R26.81 [facility] [address] [facility] [id number] [address] [place] [address] Jan, Bipolar 1 disorder, mixed F3 1.60 [facility] [address] [place] [id number] [place] [address] Jan, Bipolar 1 disorder, mixed F3 1.60 and Other fpc (current) drug therapy Z79.899 [facility] [address] [place] [id number] [place] [address] Jan, Bipolar 1 disorder, mixed F3 1.60 [facility] [address] [place] [id number] [place] [address] Jan, Bipolar 1 disorder, mixed F3 1.60 [facility] [address] [place] [id number] [place] [address] Jan, Bipolar 1 disorder, mixed F3 1.60 ; Grief F43.20 and Other fpc (current) drug therapy Z79.899 [facility] [address] [place] [id number] [place] [id number] Jan, Bipolar 1 disorder, mixed F3 1.60 [facility] [id number] [address] [place] [id number] Dec, [facility] [id number] [address] [place] [address] Dec, Bipolar 1 disorder, mixed F3 1.60 ; Vitamin D deficiency, unspecified E55.9 ; H/O allergic rhinitis Z87.09 ; Other chronic pain G89.29 and Dorsalgia, unspecified M54.9 [facility] [address] [facility] [id number] [address] [place] [id number] Dec, [facility] [id number] [place] [id number] Dec, Bipolar 1 disorder, mixed F3 1.60 [place] [address] [facility] [id number] [address] [place] [id number] Dec, Major depressive disorder, r ecurrent episode, moderate F33.1 [place] [address] [id number] [address] [place] [id number] Dec, Major depressive disorder, r ecurrent episode, moderate F33.1 [place] [address] [id number] [place] [id number] Nov, [place] [address] [place] [id number] [place] [id number] Nov, Bipolar 1 disorder, mixed F3 1.60 [place] [address] [id number] [place] [id number] Nov, Major depressive disorder, r ecurrent episode, moderate F33.1 [place] [address] [place] [id number] [place] [id number] Nov, Cervicalgia M54.2 ; Arthralg ia of hip, unspecified laterality M25.559 ; Allergic rhinitis J30.9 and Hormone replacement therapy Z79.890 [facility] [address] [facility] [id number] [address] [place] [id number] Nov, Other seasonal allergic rhin itis J30.2 [facility] [address] [facility] [id number] [address] [place] [id number] October, Major depressive disorder, r ecurrent episode, moderate F33.1 [facility] [place] [id number] [id number] [address] [place] [address] October, Major depressive disorder, r ecurrent episode, moderate F33.1 and Arthralgia of hip, unspecified laterality M25.559 [place] [address] [facility] [id number] [address] [place] [address] October, Grief F43.20 ; Hypertension I10 ; Hyperlipidemia, unspecified hyperlipidemia type E78.5 ; Other chronic pain G89.29 and Allergic rhinitis, unspecified allergic rhinitis type J30.9 [place] [address] [address] [facility] [id number] [address] [place] [address] October, Major depressive disorder, r ecurrent episode, moderate F33.1 [place] [address] [address] [facility] [id number] [address] [place] [address] Sep, Major depressive disorder, r ecurrent episode, moderate F33.1 [place] [address] [facility] [id number] [address] [place] [address] Sep, [place] [address] [facility] [id number] [address] [place] [address] Sep, Major depressive disorder, r ecurrent episode, moderate F33.1 [place] [address] [facility] [id number] [address] [place] [address] Sep, Grief F43.20 [place] [address] [facility] [id number] [address] [place] [address] Aug, Major depressive disorder, r ecurrent episode, moderate F33.1 [place] [address] [facility] [id number] [address] [place] [address] Aug, Bipolar 1 disorder, mixed F3 1.60 [place] [address] [facility] [id number] [address] [place] [address] Aug, Allergic rhinitis J30.9 ; Ce rvicalgia M54.2 and Low back pain M54.5 [place] [address] [address] [place] [id number] [address] [place] [address] Aug, Major depressive disorder, r ecurrent episode, moderate F33.1 [facility] [address] [facility] [id number] [address] [place] [address] Aug, Sinusitis J32.9 and Tobacco 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 [facility] [address] [place] [id number] [address] [place] [address] Aug, [facility] [address] [address] Aug, Depressive disorder, not els ewhere classified F32.9 ; Hormone replacement therapy Z79.[address] scan, head R93.0 [facility] [address] [place] [id number] [address] [place] [address] Aug, Major depressive disorder, r ecurrent episode, moderate F33.1 [facility] [id number] [place] [address] Jul, Major depressive disorder, r ecurrent episode, moderate F33.1 [facility] [address] [place] [id number] [address] [place] [address] Jul, Abdominal pain R10.9 and Hyp ertension I10 [facility] [address] [place] [id number] [address] [place] [address] Jul, [facility] [address] [place] [id number] [address] [place] [address] Jul, Major depressive disorder, r ecurrent episode, moderate F33.1 [facility] [address] [place] [id number] [address] [place] [address] Jul, [facility] [address] [place] [id number] [address] [place] [address] Jul, [facility] [address] [place] [id number] [address] [place] [address] Jun, [facility] [address] [place] [id number] [address] [place] [address] Jun, Depressive disorder, not els ewhere classified F32.9 [facility] [address] [id number] [address] [place] [address] Jun, [facility] [address] [id number] [address] [place] [address] Jun, [facility] [address] [id number] [address] [place] [address] Jun, Arthralgia of hip, unspecifi ed laterality M25.559 ; Bruising, spontaneous R23.3 and Night sweats R61 [facility] [address] [id number] [address] [place] [address] Jun, [facility] [address] [place] [id number] [address] [place] [address] Jun, [facility] [address] [facility] [id number] [address] [place] [address] May, [facility] [address] [id number] [address] [place] [address] May, Myalgia M79.1 and Screening, lipid Z13.220 [facility] [address] [facility] [id number] [address] [place] [address] Apr, Status post cervical spinal fusion Z98.1 ; Fibromyalgia M79.7 and Unsteady gait R26.81 [facility] [address] [id number] [address] [place] [address] Nov, [facility] [address] [id number] [address] [place] [address] Nov, [facility] [address] [facility] [id number] [address] [place] [address] October, [facility] [address] [facility] [id number] [address] [place] [address] October, [facility] [address] [id number] [address] [place] [address] October, [facility] [place] [address] [id number] [address] [place] [address] October, [facility] [address] [id number] [address] [place] [address] October, [facility] [place] [address] [id number] [address] [place] [address] October, Dysuria 788.1 ; Nausea 787.0 2 and Urinary tract infection 599.0 [facility] [address] [id number] [address] [place] [id number] Sep, [facility] [address] [id number] [address] [place] [address] Sep, [facility] [address] [id number] [address] [place] [phone] Aug, [facility] [address] [id number] [address] [place] [id number] Aug, [facility] [place] [address] [id number] [address] [place] [id number] Aug, [facility] [address] [id number] [address] [place] [address] Aug, [facility] [place] [address] [id number] [address] [place] [address] Aug, [facility] [address] [id number] [address] [place] [id number] Aug, [facility] [address] [id number] [address] [place] [id number] Aug, [facility] [address] [id number] [address] [place] [address] Aug, [facility] [address] [id number] [address] [place] [id number] Aug, [facility] [address] [id number] [address] [place] [address], [place] [address] 18 Aug, 2014 [facility] [address] [id number] [address] [place] [address], [place] [address] 18 Aug, 2014 [facility] [address] [id number] [address] [place] [address], [place] [address] 13 Aug, 2014 [facility] [address] [id number] [address] [place] [address], [place] [address] 13 Aug, 2014 [facility] [address] [id number] [address] [place] [address], [place] [address] 11 Aug, 2014 [facility] [address] [id number] [address] [place] [address], [place] [address] 11 Aug, 2014 [facility] [address] [id number] [address] [place] [address], [place] [address] 06 Aug, 2014 [facility] [address] [id number] [address] [place] [address], [place] [address] 06 Aug, 2014 [facility] [address] [id number] [address] [place] [address], [place] [address] 05 Aug, 2014 [facility] [address] [id number] [address] [place] [address], [place] [address] 05 Aug, 2014 [facility] [place] [address] [id number] [address] [place] [address], [place] [address] 04 Aug, 2014 [facility] [address] [id number] [address] [place] [address], [place] [address] Aug, [facility] [address] [id number] [address] [place] [address], [place] [address] Aug, [facility] [address] [id number] [address] [place] [address], [place] [address] Jul, [facility] [address] [id number] [address] [place] [address], [place] [address] Jul, [facility] [address] [id number] [address] [place] [address], [place] [address] Jul, [facility] [address] [id number] [address] [place] [address], [place] [address] Jul, 2014 [facility] [address] [id number] [address] [place] [address], [place] [address] Jul, 2014 [facility] [address] [id number] [address] [place] [address], [place] [address] Jul, 2014 [facility] [address] [id number] [address] [place] [address], [place] [address] Jul, 2014 [facility] [address] [id number] [address] [place] [address], [place] [address] Jul, 2014 [facility] [address] [id number] [address] [place] [address], [place] [address] Jul, 2014 [facility] [address] [id number] [address] [place] [address], [place] [address] Jul, 2014 [facility] [address] [id number] [address] [place] [address], [place] [address] Jul, [facility] [address] [id number] [address] [place] [address], [place] [address] Jul, [facility] [address] [id number] [address] [place] [address], [place] [address] Jul, [facility] [address] [id number] [address] [place] [address], [place] [address] Jul, [facility] [address] [id number] [address] [place] [address] Jun, [facility] [address] [id number] [address] [place] [address] Jun, [facility] [address] [id number] [address] [place] [address] Jun, [facility] [address] [id number] [address] [place] [id number] Jun, [facility] [address] [id number] [address] [place] [address], [place] [address] Jun, [facility] [address] [id number] [address] [place] [address], [place] [address] Jun, [facility] [address] [id number] [address] [place] [address], [place] [address] May, [facility] [address] [id number] [address] [place] [address], [place] [address] May, [facility] [address] [id number] [address] [place] [address], [place] [address] May, [facility] [address] [id number] [address] [place] [address], [place] [address] May, [facility] [address] [id number] [address] [place] [address], [place] [address] May, [facility] [address] [id number] [address] [place] [address], [place] [address] May, [facility] [address] [id number] [address] [place] [address], [place] [address] Apr, [facility] [address] [id number] [address] [place] [address], [place] [address] Apr, [facility] [address] [id number] [address] [place] [address], [place] [address] Apr, [facility] [address] [id number] [address] [place] [address], [place] [address] Apr, [facility] [address] [id number] [address] [place] [address], [place] [address] Apr, [facility] [address] [id number] [address] [place] [address], [place] [address] Apr, [facility] [address] [id number] [address] [place] [address], [place] [address] Mar, [facility] [address] [id number] [address] [place] [address], [place] [address] Mar, [facility] [address] [id number] [address] [place] [address], [place] [address] Mar, 2013 [facility] [address] [id number] [address] [place] [address], [place] [address] Mar, [facility] [address] [id number] [address] [place] [address], [place] [address] Mar, 2013 [facility] [address] [id number] [address] [place] [address], [place] [address] Mar, 2013 [facility] [address] [id number] [address] [place] [address], [place] [address] Mar, [facility] [address] [id number] [address] [place] [address], [place] [address] Mar, 2013 [facility] [address] [id number] [address] [place] [address], [place] [address] Mar, 2013 [facility] [address] [id number] [address] [place] [address] Mar, [facility] [address] [id number] [address] [place] [address], [place] [address] Mar, [facility] [address] [id number] [address] [place] [address] Mar, [facility] [address] [id number] [address] [place] [address] 30 Feb, 2013 [facility] [address] [id number] [address] [place] [address] 29 Sep, 2013 [facility] [address] [id number] [address] [place] [address], [place] [address] 29 Feb, 2013 [facility] [address] [id number] [address] [place] [address], [place] [address] 23 Feb, 2013 [facility] [address] [id number] [address] [place] [address], [place] [address] Feb, 2013 [facility] [address] [id number] [facility] [address] Feb, [facility] [address] [id number] [address] [place] [address], [place] [address] Feb, [facility] [address] [id number] [address] [place] [address], [place] [address] Jan, [facility] [address] [id number] [address] [place] [address], [place] [address] Jan, [facility] [address] [id number] [address] [place] [address], [place] [address] Jan, [facility] [address] [id number] [address] [place] [address], [place] [address] Dec, [facility] [address] [id number] [address] [place] [address], [place] [address] Dec, [facility] [address] [id number] [address] [place] [address], [place] [address] Dec, [facility] [address] [id number] [address] [place] [address], [place] [address] Dec, [facility] [address] [id number] [address] [place] [address], [place] [address] Sep, [facility] [address] [id number] [address] [place] [address], [place] [address] Sep, [facility] [address] [id number] [address] [place] [address], [place] [address] Sep, [facility] [address] [id number] [address] [place] [address], [place] [address] Sep, [facility] [address] [id number] [address] [place] [address], [place] [address] Sep, [facility] [address] [id number] [address] [place] [address], [place] [address] Sep, [facility] [address] [id number] [address] [place] [address], [place] [address] Sep, [facility] [address] [id number] [address] [place] [address], [place] [address] Sep, [facility] [address] [id number] [address] [place] [address], [place] [address] Aug, [facility] [address] [id number] [address] [place] [address], [place] [address] Aug, [facility] [address] [id number] [address] [place] [address], [place] [address] May, [facility] [address] [id number] [address] [place] [address], [place] [address] May, [facility] [address] [id number] [address] [place] [address], [place] [address] Apr, [facility] [address] [id number] [address] [place] [address], [place] [address] Apr, [facility] [place] [address] [id number] [address] [place] [address], [place] [address] Apr, [facility] [place] [address] [id number] [address] [place] [address], [place] [address] Apr, [facility] [place] [address] [id number] [address] [place] [address], [place] [address] Apr, [facility] [address] [id number] [address] [place] [address], [place] [address] Apr, [facility] [address] [id number] [address] [place] [address], [place] [address] May, [facility] [address] [id number] [address] [place] [address], [place] [address] May, [facility] [address] [id number] [address] [place] [address], [place] [address] May, [facility] [address] [id number] [address] [place] [address], [place] [address] May, [facility] [address] [id number] [address] [place] [address] May, [facility] [address] [id number] [address] [place] [address], [place] [address] May, [facility] [address] [id number] [address] [place] [address] Apr, [facility] [address] [id number] [address] [place] [address], [place] [address] Apr, [facility] [address] [id number] [address] [place] [address] Apr, [facility] [address] [id number] [address] [place] [address], [place] [address] Apr, [facility] [address] [id number] [address] [place] [address], [place] [address] Apr, [facility] [address] [id number] [address] [place] [address] Apr, [facility] [address] [id number] [address] [place] [address], [place] [address] Apr, [facility] [address] [id number] [address] [place] [address] Apr, [facility] [address] [id number] [address] [place] [address] Apr, [facility] [address] [id number] [address] [place] [address] Apr, [facility] [address] [id number] [address] [place] [address] Mar, [facility] [address] [id number] [address] [place] [address], [place] [address] Mar, [facility] [address] [id number] [address] [place] [address], [place] [address] Mar, [facility] [address] [id number] [address] [place] [address], [place] [address] Mar, [facility] [address] [id number] [address] [place] [address], [place] [address] Mar, [facility] [address] [id number] [address] [place] [address], [place] [address] Mar, [facility] [address] [id number] [address] [place] [address], [place] [address] Mar, [facility] [address] [id number] [address] [place] [address], [place] [address] Mar, [facility] [address] [id number] [address] [place] [address], [place] [address] Mar, [facility] [address] [id number] [address] [place] [address], [place] [address] 25 Feb, 2012 [facility] [address] [id number] [address] [place] [address], [place] [address] 16 Feb, 2012 [facility] [address] [id number] [address] [place] [address], [place] [address] Feb, [facility] [address] [id number] [address] [place] [address], [place] [address] Jan, [facility] [address] [id number] [address] [place] [address], [place] [address] Jan, [facility] [address] [id number] [address] [place] [address], [place] [address] Jan, [facility] [address] [id number] [address] [place] [address], [place] [address] Jan, [facility] [address] [id number] [address] [place] [address], [place] [address] Jan, [facility] [address] [id number] [address] [place] [address], [place] [address] Jan, [facility] [address] [id number] [address] [place] [address], [place] [address] 16 Jan, 2012 [facility] [address] [id number] [address] [place] [address], [place] [address] Jan, [facility] [address] [id number] [address] [place] [address], [place] [address] Jan, [facility] [address] [id number] [address] [place] [address], [place] [address] Jan, [facility] [address] [id number] [address] [place] [address], [place] [address] Dec, [facility] [address] [id number] [address] [place] [address], [place] [address] Dec, [facility] [address] [id number] [address] [place] [address], [place] [address] Dec, [facility] [address] [id number] [address] [place] [address], [place] [address] Dec, [facility] [address] [id number] [address] [place] [address], [place] [address] Nov, [facility] [address] [id number] [address] [place] [address], [place] [address] Nov, [facility] [address] [id number] [address] [place] [address], [place] [address] Nov, [facility] [address] [id number] [address] [place] [address], [place] [address] October, [facility] [address] [id number] [address] [place] [address], [place] [address] October, [facility] [address] [id number] [address] [place] [address], [place] [address] October, [facility] [address] [id number] [address] [place] [address], [place] [address] October, [facility] [address] [id number] [address] [place] [address], [place] [address] October, [facility] [facility] [address] [id number] [address] [place] [address], [place] [id number] October, [facility] [address] [id number] [address] [place] [id number] Aug, [facility] [address] [id number] [address] [place] [id number] Mar, [facility] [address] [id number] [address] [place] [id number] Nov, [facility] [address] [id number] [address] [place] [id number] May, [facility] [address] [id number] [address] [place] [id number] May, [facility] [address] [id number] [address] [place] [phone] Apr, [facility] [address] [facility] [id number] [address] [place] [phone] Mar, [facility] [address] [facility] [id number] [address] [place] [phone] Mar, IMMUNIZATIONS No Known Immunizations SOCIAL HISTORY Never Assessed REASON FOR VISIT Depression - Is having problems finding a home health person. Thinks she has an other bladder infection. Went to ER for bleeding and clotting on the . Last Sunday went to and had another bladder infection. Has had 3 round s of Bactrim. Told her it is Ecoli. Wants a referral to Dr. Tom. - Sergei KRISTINA, Left arm, neck, numbness went to ER on the and told her it was related t o Stenosis and gave her steroids. They told her she has not had a stroke after doing a CT., Saw her surgeon and told her that her swallowing is probably not go ing to get better after 2 years., Will see Dr. Cain for her spinal injection ne xt week., She wants to get the box for the colon check. She missed her colonosco py due to the clotting and bleeding problems she has been dealing with., Wants t o discuss getting routine steroid injections for the numbness. PLAN OF CARE Activity Details Follow Up 4 Weeks Reason:depression VITAL SIGNS Height 64 in 2016-11-23 Weight 146.4 lbs 2016-11-23 Temperature 98.2 degrees Fahrenheit 2016-11-23 Heart Rate 116 bpm 2016-11-23 Respiratory Rate 18 2016-11-23 BMI 25.13 kg/m2 2016-11-23 Blood pressure systolic 117 mmHg 2016-11-23 Blood pressure diastolic 71 mmHg 2016-11-23 MEDICATIONS Medication Instructions Dosage Frequency Start Date End Date Duration S alexandr Pantoprazole Sodium 20 MG TAKE 1 TABLET BY MOUTH ONCE DAILY 30 Active Magnesium 500 MG Orally Once a day 1 tablet with a meal 24h Dec, Active Loratadine 10 mg Orally Once a day 1 tablet 24h 30 Active Probiotic Acidophilus Ac tive Estradiol 2 MG Orally Once a day 1 tablet 24h Active Vagifem 10 MCG Vaginal Two times a Week 1 tablet Active Qnasl 80 MCG/ACT Nasally Once a day 2 puffs in each nostril 24h 30 Active Vitamin D3 2000 UNIT Orally Once a day as directed 24h Dec, Active Nicoderm CQ 14 MG/24HR Transdermal Once a day 1 patch to skin 24h Nov, Dec, 30 day(s) Active [id number] 1 MG Active Depakote ER 500 MG Orally at bedtime 2 tabs Feb, Active Selenium 50 MCG Orally Once a day 1 tablet 24h Active HydrOXYzine HCl 10 MG Orally BID prn anxiety, MAX 45 tabs monthly 1 t ablet 30 days Active Melatonin 5 MG Orally at bedtime 1 Tablet by Oral route 1 time per day HS Aug, Active Flexeril 10 mg by oral route 2 times a day 1 tablet 12h Aug, Active Bactrim 400-80 MG Orally 2 times a day 2 tablets 12h Active Ibuprofen 200 MG Orally every 6 hrs 1 tablet as needed 6h Active Voltaren 1 % Transdermal 4 times a day on neck Active Nicoderm CQ 7 MG/24HR Transdermal Once a day Star t after using the 14mg patch for a month 1 patch to skin Nov, Dec, 30 day(s) Activ e Mucinex 600 MG Orally every 12 hrs 1 tablet as needed 12h Active Multi Vitamin Daily Orally Once a day 1 tablet 24h Active Fetzima 120 MG Orally Once a day TAKE 1 CAPSULE BY MOUTH DAILY 24h Active RESULTS Name Result Date Reference Range COLOGUARD (OUTSIDE ORDER) PROCEDURES No Known procedures INSTRUCTIONS MEDICATIONS ADMINISTERED No Known Medications MEDICAL (GENERAL) HISTORY Type Description Date Medical History Severe spinal stenosis throu cervical spine CT and MRI done 10/2014 at [facility] with Neurosurgery at Medical History Migraine [...]
--- OUTSIDE RECORDS SUMMARY | 2019-06-19 05:51 | XMS REPORT ---
Author Author Sydnie MORTON Organization [facility] Address [address] [place] [address] Care Team Providers Care Real Estate Administrative Assistant Name Role Phone JOHN MORTON Unavailable PROBLEMS Type Condition ICD9-CM Code OFB14-QP Code Onset Dates Condition S tatus SNOMED Code Problem Hormone replacement therapy Z79.890 Ac tive 780018296 Problem Abnormal CT scan, head R93.0 Active 992806262 Problem Sensorineural hearing loss (SNHL) of both ears H90 .3 Active 331925102 Problem History of colon polyps Z86.010 Active 977682564 Problem Bruising, spontaneous R23.3 Active 022498410 Problem Generalized anxiety disorder F41.1 A ctive 32765978 Problem Arthralgia of hip, unspecified laterality M25.559 Active 02585963 Problem Hematuria, unspecified type R31.9 Ac tive 31539417 Problem Imbalance R26.89 Active 346363480 Problem Hammer toe of right foot M20.41 Activ e 398132722 Problem Plantar wart of right foot B07.0 Act mitchell [id number] Problem Sciatica of left side M54.32 Active 70352343 Problem Hyperlipidemia, unspecified hyperlipidemia type E7 8.5 Active 95531147 Problem Hypertension I10 Active 3022998 3 Problem Night sweats R61 Active 4115888 0 Problem Fibromyalgia M79.7 Active 1567167 7 Problem Major depressive disorder, recurrent episode, moderate F33.1 Active 844135032 Problem Acute left-sided low back pain with left-sided sciatica M54.42 Active 333220422 Problem Bladder spasm N32.89 Active 727687 006 Problem Gastritis without bleeding, unspecified chronicity, unspecified gastritis type K29.70 Active 038548738 Problem Bipolar 1 disorder, mixed F31.60 Acti ve 70087160 Problem Grief F43.20 Active 31628932 Problem Other chronic pain G89.29 Active 8 8332400 Problem Allergic rhinitis J30.9 Active 61 768959 Problem Hot flashes due to menopause N95.1 A ctive 635114899 Problem Ataxia R27.0 Active 98110212 Problem Hearing loss, unspecified laterality H91.90 Active 61029057 ALLERGIES No Information ENCOUNTERS Encounter Location Date Diagnosis [facility] [address] [address] Dec, [facility] [address] [address] Nov, [facility] [address] [address] Nov, [place] [address] [address] Nov, [facility] [address] [address] Nov, [facility] [address] [address] October, Bipolar 1 disorder, mixed F3 1.60 [facility] [address] [address] October, Acute nasopharyngitis J00 [facility] [address] [address] October, Bitten or stung by nonvenomo us insect and other nonvenomous arthropods, initial encounter W57.XXXA and Insect bite (nonvenomous) of abdominal wall, initial encounter S30.861A [facility] [address] [place] [id number] [place] [address] October, Insect bite (nonvenomous) of abdominal wall, initial encounter S30.861A ; Bitten or stung by nonvenomous insect and other nonvenomous arthropods, initial encounter W57.XXXA ; Allergic rhinitis J30.9 and Low back pain M54.5 [facility] [address] [place] [id number] [place] [address] October, Bipolar 1 disorder, mixed F3 1.60 [facility] [address] [id number] [address] [place] [phone] October, [facility] [address] [id number] [address] [place] [phone] October, [facility] [address] [facility] [id number] [address] [place] [phone] October, Bipolar 1 disorder, mixed F3 1.60 [facility] [address] [id number] [address] [place] [phone] Sep, Bipolar 1 disorder, mixed F3 1.60 [facility] [address] [facility] [id number] [address] [place] [phone] Sep, Other chronic pain G89.29 [facility] [address] [facility] [id number] [address] [place] [phone] Sep, [facility] [address] [id number] [address] [place] [phone] Sep, Bipolar 1 disorder, mixed F3 1.60 [facility] [address] [facility] [id number] [address] [place] [phone] Sep, Allergic rhinitis J30.9 and Sciatica of left side M54.32 [facility] [address] [facility] [id number] [address] [place] [phone] Sep, Bipolar 1 disorder, mixed F3 1.60 [facility] [address] [id number] [address] [place] [phone] Sep, Bipolar 1 disorder, mixed F3 1.60 and Generalized anxiety disorder F41.1 [facility] [address] [facility] [id number] [address] [place] [phone] Aug, [facility] [address] [facility] [id number] [address] [place] [phone] Aug, Bipolar 1 disorder, mixed F3 1.60 [facility] [address] [facility] [id number] [address] [place] [phone] Aug, Bipolar 1 disorder, mixed F3 1.60 [facility] [address] [facility] [id number] [address] [place] [phone] Aug, [facility] [address] [facility] [id number] [address] [place] [phone] Aug, Generalized anxiety disorder F41.1 [facility] [address] [facility] [id number] [address] [place] [phone] Aug, Bipolar 1 disorder, mixed F3 1.60 [facility] [address] [facility] [id number] [address] [place] [phone] Aug, Plantar wart of right foot B 07.0 [facility] [address] [facility] [id number] [address] [place] [phone] Aug, Bipolar 1 disorder, mixed F3 1.60 [facility] [address] [facility] [id number] [address] [place] [phone] Jul, Bipolar 1 disorder, mixed F3 1.60 [facility] [address] [facility] [id number] [address] [place] [phone] Jul, [facility] [address] [facility] [id number] [address] [place] [phone] Jul, Bipolar 1 disorder, mixed F3 1.60 [facility] [address] [facility] [id number] [address] [place] [phone] Jul, Generalized anxiety disorder F41.1 [facility] [address] [facility] [id number] [address] [place] [phone] Jul, Bipolar 1 disorder, mixed F3 1.60 [facility] [address] [facility] [id number] [address] [place] [phone] 07 Jul, 2017 Acute left-sided low back pa in with left-sided sciatica M54.42 [facility] [address] [facility] [id number] [address] [place] [phone] Jul, Coccydynia M53.3 [place] [address] [place] [id number] [address] [place] [phone] Jun, Bipolar 1 disorder, mixed F3 1.60 [facility] [address] [place] [id number] [address] [place] [phone] Jun, Acute nasopharyngitis J00 [place] [address] [place] [id number] [address] [place] [phone] Jun, Bipolar 1 disorder, mixed F3 1.60 [place] [address] [place] [phone] Jun, Fibromyalgia M79.7 [place] [address] [place] [id number] [place] [address] Jun, Bipolar 1 disorder, mixed F3 1.60 [place] [address] [address] Jun, Fibromyalgia M79.7 and Bipol ar 1 disorder, mixed F31.60 [place] [address] [place] [address] May, Bipolar 1 disorder, mixed F3 1.60 ; Generalized anxiety disorder F41.1 and Other residential (current) drug therapy Z79.899 [place] [address] [place] [address] May, Bipolar 1 disorder, mixed F3 1.60 [facility] [address] [place] [id number] [address] [place] [phone] 14 May, 2017 Cough R05 and Body aches R52 [facility] [place] [id number] [place] [phone] 10 May, 2017 Bladder spasm N32.89 and Acu te cystitis without hematuria N30.00 [place] [address] [place] [id number] [place] [phone] May, Bipolar 1 disorder, mixed F3 1.60 [facility] [address] [place] [id number] [place] [phone] Apr, [facility] [address] [place] [id number] Apr, Major depressive disorder, r ecurrent episode, moderate F33.1 and Encounter for immunization Z23 [facility] [address] [address] Apr, Bipolar 1 disorder, mixed F3 1.60 [facility] [address] [address] Apr, Bipolar 1 disorder, mixed F3 1.60 [place] [address] [place] [id number] 16 Apr, 2017 Bipolar 1 disorder, mixed F3 1.60 [facility] [address] [address] Apr, Yeast vaginitis B37.3 [facility] [address] [address] 09 Apr, 2017 Bipolar 1 disorder, mixed F3 1.60 [facility] [address] [address] 07 Apr, [address]03[address] for immunization Z23 [facility] [address] [address] Apr, Bipolar 1 disorder, mixed F3 1.60 [facility] [address] [address] Mar, Bipolar 1 disorder, mixed F3 1.60 [place] [address] [address] Mar, Bipolar 1 disorder, mixed F3 1.60 [facility] [address] [address] Mar, Imbalance R26.89 and Encount er for immunization Z23 [place] [address] [address] Mar, Generalized anxiety disorder F41.1 [place] [address] [place] [address] Mar, Bipolar 1 disorder, mixed F3 1.60 [place] [address] [address] Mar, Generalized anxiety disorder F41.1 [place] [address] [address] Mar, Bipolar 1 disorder, mixed F3 1.60 [place] [address] [address] Mar, Bipolar 1 disorder, mixed F3 1.60 [place] [address] [address] Feb, Bipolar 1 disorder, mixed F3 1.60 [place] [address] [address] Feb, Bipolar 1 disorder, mixed F3 1.60 and Generalized anxiety disorder F41.1 [place] [address] [address] Feb, Gastritis without bleeding, unspecified chronicity, unspecified gastritis type K29.70 ; Hammer toe of right foot M20.41 and Other viral warts B07.8 [place] [address] [place] [phone] 20 Feb, 2017 Bipolar 1 disorder, mixed F3 1.60 [place] [address] [address] 13 Feb, 2017 Bipolar 1 disorder, mixed F3 1.60 [place] [address] [address] 05 Feb, 2017 Bipolar 1 disorder, mixed F3 1.60 [place] [address] [place] [address] [place] [phone] 31 Jan, 2017 Encounter for screening mamm ogram for breast cancer Z12.31 ; Other viral warts B07.8 and Allergic rhinitis J30.9 [facility] [address] [facility] [id number] [address] [place] [phone] Jan, Bipolar 1 disorder, mixed F3 1.60 [facility] [address] [facility] [id number] [address] [place] [phone] Jan, Bipolar 1 disorder, mixed F3 1.60 [place] [address] [facility] [id number] [address] [place] [phone] Jan, [place] [address] [facility] [id number] [address] [place] [phone] Jan, Bipolar 1 disorder, mixed F3 1.60 [place] [address] [place] [id number] [address] [place] [phone] Jan, Bipolar 1 disorder, mixed F3 1.60 [place] [address] [facility] [id number] [address] [place] [address] Jan, Allergic rhinitis J30.9 ; He maturia R31.9 and Colon cancer screening Z12.11 [place] [address] [facility] [id number] [address] [place] [phone] Dec, Bipolar 1 disorder, mixed F3 1.60 [place] [address] [facility] [id number] [address] [place] [address] Dec, Bipolar 1 disorder, mixed F3 1.60 ; Generalized anxiety disorder F41.1 and 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.899 [place] [address] [place] [id number] [address] [place] [address] Dec, Bipolar 1 disorder, mixed F3 1.60 [place] [address] [facility] [id number] [address] [place] [phone] Dec, Bipolar 1 disorder, mixed F3 1.60 [place] [address] [place] [id number] [address] [place] [phone] Dec, Bipolar 1 disorder, mixed F3 1.60 [facility] [address] [facility] [id number] [address] [place] [phone] Dec, Low back pain M54.5 and Recu rrent urinary tract infection N39.0 [facility] [address] [facility] [id number] [address] [place] [phone] Nov, Bipolar 1 disorder, mixed F3 1.60 [facility] [address] [facility] [id number] [address] [place] [phone] Nov, Bipolar 1 disorder, mixed F3 1.60 [facility] [address] [facility] [id number] [address] [place] [address] Nov, Bipolar 1 disorder, mixed F3 1.60 [facility] [address] [facility] [id number] [address] [place] [phone] Nov, Bipolar 1 disorder, mixed F3 1.60 [facility] [address] [facility] [id number] [address] [place] [phone] Nov, [facility] [address] [facility] [id number] [address] [place] [phone] Nov, Anesthesia of skin R20.0 ; F requent UTI N39.0 ; Tobacco abuse Z72.0 and Colon cancer screening Z12.11 [facility] [address] [facility] [id number] [address] [place] [phone] Nov, Bipolar 1 disorder, mixed F3 1.60 [facility] [address] [facility] [id number] [address] [place] [phone] October, Bipolar 1 disorder, mixed F3 1.60 [facility] [address] [facility] [id number] [address] [place] [phone] October, Bipolar 1 disorder, mixed F3 1.60 [facility] [address] [facility] [id number] [address] [place] [phone] October, Bipolar 1 disorder, mixed F3 1.60 [facility] [address] [place] [id number] [address] [place] [phone] October, Bipolar 1 disorder, mixed F3 1.60 [facility] [address] [place] [id number] [address] [place] [phone] October, Bipolar 1 disorder, mixed F3 1.60 [facility] [address] [place] [id number] [address] [place] [address] October, Cervicalgia M54.2 and Bipola r 1 disorder, mixed F31.60 [place] [address] [place] [id number] [address] [place] [address] October, Hypertension I10 ; Hyperlipi demia, unspecified hyperlipidemia type E78.5 and Family history of thyroid disease Z83.49 [place] [address] [place] [id number] [place] [address] October, [place] [address] [place] [id number] [place] [address] October, Hypertension I10 ; Hyperlipi demia, unspecified hyperlipidemia type E78.5 and Family history of thyroid problem Z83.49 [place] [address] [place] [id number] [address] [place] [phone] October, Bipolar 1 disorder, mixed F3 1.60 [place] [address] [place] [id number] [address] [place] [address] Sep, Bipolar 1 disorder, mixed F3 1.60 [facility] [address] [place] [id number] [address] [place] [phone] Sep, Bipolar 1 disorder, mixed F3 1.60 [place] [address] [place] [id number] [place] [address] Sep, Bipolar 1 disorder, mixed F3 1.60 [facility] [address] [place] [id number] [address] [place] [address] Sep, History of colon polyps Z86. 010 and Hematochezia K92.1 [facility] [address] [facility] [id number] [address] [place] [phone] Sep, Major depressive disorder, r ecurrent episode, moderate F33.1 [facility] [address] [facility] [id number] [address] [place] [address] Sep, Bipolar 1 disorder, mixed F3 1.60 [facility] [address] [place] [id number] [address] [place] [phone] Aug, Hot flashes due to menopause N95.1 [facility] [address] [facility] [id number] [address] [place] [address] Aug, Bipolar 1 disorder, mixed F3 1.60 [facility] [address] [place] [id number] [address] [place] [phone] Aug, [facility] [address] [place] [id number] [address] [place] [address] Aug, Bipolar 1 disorder, mixed F3 1.60 [facility] [address] [facility] [id number] [address] [place] [address] Aug, Bipolar 1 disorder, mixed F3 1.60 [facility] [address] [place] [id number] [address] [place] [phone] Aug, Hot flashes due to menopause N95.1 ; Cervicalgia M54.2 and Ataxia R27.0 [facility] [address] [place] [id number] [address] [place] [address] Jul, Bipolar 1 disorder, mixed F3 1.60 [facility] [address] [place] [id number] [address] [place] [phone] Jul, Bipolar 1 disorder, mixed F3 1.60 [facility] [address] [facility] [id number] [address] [place], [place] [id number] Jul, Bipolar 1 disorder, mixed F3 1.60 [facility] [address] [place] [id number] [address] [place] [phone] Jul, Bipolar 1 disorder, mixed F3 1.60 [place] [address] [address] 10 Jul, 2016 Bipolar 1 disorder, mixed F3 1.60 [place] [address] [place] [phone] 08 Jul, 2016 Cervicalgia M54.2 ; Tremor R 25.1 ; Hearing abnormally acute, unspecified laterality H93.239 ; Alopecia L65.9 ; Encounter for immunization Z23 and Family history of thyroid disease Z83.49 [place] [address] [address] Jul, Bipolar 1 disorder, mixed F3 1.60 [place] [address] [place] 8[address] Jun, [place] [address] [place] 8[address] Jun, Hearing disorder, unspecifie d laterality H93.299 [place] [address] [address] Jun, Bipolar 1 disorder, mixed F3 1.60 [place] [address] [address] Jun, Bipolar 1 disorder, mixed F3 1.60 [place] [address] [address] Jun, Allergic rhinitis J30.9 [place] [id number] [address] Jun, Bipolar 1 disorder, mixed F3 1.60 [place] [address] [place] 8[address] Jun, Bipolar 1 disorder, mixed F3 1.60 [place] [address] [address] Jun, Allergic rhinitis J30.9 [facility] [address] [place] [address] Jun, Allergic rhinitis J30.9 [facility] [address] [facility] [id number] [address] [place], [place] [address] Jun, Bipolar 1 disorder, mixed F3 1.60 [facility] [address] [facility] [id number] [address] [place] [phone] May, Bipolar 1 disorder, mixed F3 1.60 [facility] [address] [id number] [address] [place] [phone] May, Bipolar 1 disorder, mixed F3 1.60 [facility] [address] [facility] [id number] [address] [place] [address] May, [facility] [address] [place] [id number] [address] [place] [phone] May, Bipolar 1 disorder, mixed F3 1.60 [facility] [address] [place] [id number] [address] [place] [address] May, Bipolar 1 disorder, mixed F3 1.60 [facility] [address] [facility] [id number] [address] [place] [address] May, [facility] [address] [place] [id number] [address] [place], [place] [address] May, [facility] [address] [place] [id number] [address] [place] [phone] May, [facility] [address] [place] [id number] [address] [place] [id number] May, Abdominal pain, unspecified location R10.9 [facility] [address] [place] [id number] [address] [place] [phone] May, [facility] [address] [place] [id number] [address] [place] [id number] Apr, Hematuria R31.9 ; Ataxia R27 .0 and Hearing loss, unspecified laterality H91.90 [facility] [address] [facility] [id number] [address] [place] [id number] Apr, Bipolar 1 disorder, mixed F3 1.60 [facility] [address] [id number] Apr, Acute effusion of both middl e ears H65.193 [facility] [id number] [place] [phone] 10 Apr, 2016 Hematuria R31.9 and Pyelonep hritis N12 [facility] [address] [id number] Apr, [place] [address] [id number] Mar, Bipolar 1 disorder, mixed F3 1.60 [facility] [address] [id number] Mar, [facility] [address] [id number] Mar, Bipolar 1 disorder, mixed F3 1.60 [place] [address] [address] Mar, Bipolar 1 disorder, mixed F3 1.60 [facility] [address] [id number] Mar, Encounter for immunization Z 23 and Gastritis without bleeding, unspecified chronicity, unspecified gastritis type K29.70 [facility] [address] [place] [id number] [address] [place] [phone] Mar, Bipolar 1 disorder, mixed F3 1.60 and Grief F43.20 [place] [address] [id number] Mar, Gastritis without bleeding, unspecified chronicity, unspecified gastritis type K29.70 [place] [address] [place] [id number] [address] [place] [phone] Mar, Bipolar 1 disorder, mixed F3 1.60 [place] [address] [facility] [id number] [address] [place] [phone] 05 Mar, 2016 Gastritis without bleeding, unspecified chronicity, unspecified gastritis type K29.70 [facility] [address] [facility] [id number] [address] [place], [place] [id number] Mar, [facility] [address] [facility] [id number] [address] [place] [phone] Feb, Bipolar 1 disorder, mixed F3 1.60 [place] [address] [place] [id number] [address] [place] [id number] Feb, Bipolar 1 disorder, mixed F3 1.60 and Grief F43.20 [place] [address] [facility] [id number] [address] [place] [phone] Feb, Gastritis without bleeding, unspecified chronicity, unspecified gastritis type K29.70 [place] [address] [place] [id number] [address] [place] [phone] 14 Feb, 2016 Bipolar 1 disorder, mixed F3 1.60 [facility] [address] [facility] [id number] [address] [place] [phone] 09 Feb, 2016 Gastroesophageal reflux dise ase, esophagitis presence not specified K21.9 [place] [address] [place] [id number] [address] [place] [phone] Jan, Bipolar 1 disorder, mixed F3 1.60 [place] [address] [place] [id number] [address] [place] [phone] Jan, Bipolar 1 disorder, mixed F3 1.60 and Unsteady gait R26.81 [place] [address] [facility] [id number] [address] [place] [phone] Jan, Bipolar 1 disorder, mixed F3 1.60 [facility] [address] [place] [id number] [address] [place] [phone] Jan, Bipolar 1 disorder, mixed F3 1.60 and Other residential (current) drug therapy Z79.899 [place] [address] [place] [address] [place] [address] Jan, Bipolar 1 disorder, mixed F3 1.60 [facility] [address] [place] [id number] [address] [place] [phone] Jan, Bipolar 1 disorder, mixed F3 1.60 [facility] [address] [place] [id number] [address] [place] [phone] Jan, Bipolar 1 disorder, mixed F3 1.60 ; Grief F43.20 and 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.899 [place] [address] [place] [id number] [address] [place] [phone] Jan, Bipolar 1 disorder, mixed F3 1.60 [place] [address] [address] Dec, [place] [address] [address] Dec, Bipolar 1 disorder, mixed F3 1.60 ; Vitamin D deficiency, unspecified E55.9 ; H/O allergic rhinitis Z87.09 ; Other chronic pain G89.29 and Dorsalgia, unspecified M54.9 [place] [address] [place] [id number] [address] [place] [address] Dec, [place] [address] [place] [id number] [address] [place] [phone] Dec, Bipolar 1 disorder, mixed F3 1.60 [facility] [address] [place] [id number] [address] [place] [phone] Dec, Major depressive disorder, r ecurrent episode, moderate F33.1 [place] [address] [place] [id number] [address] [place] [phone] Dec, Major depressive disorder, r ecurrent episode, moderate F33.1 [place] [address] [place] [id number] [address] [place] [phone] Nov, [facility] [address] [place] [id number] [place] [address] Nov, Bipolar 1 disorder, mixed F3 1.60 [place] [address] [facility] [id number] [address] [place] [phone] Nov, Major depressive disorder, r ecurrent episode, moderate F33.1 [place] [address] [facility] [id number] [address] [place] [address] Nov, Cervicalgia M54.2 ; Arthralg ia of hip, unspecified laterality M25.559 ; Allergic rhinitis J30.9 and Hormone replacement therapy Z79.890 [facility] [address] [facility] [id number] [address] [place] [address] Nov, Other seasonal allergic rhin itis J30.2 [place] [address] [facility] [id number] [address] [place] [phone] October, Major depressive disorder, r ecurrent episode, moderate F33.1 [place] [address] [place] [address] October, Major depressive disorder, r ecurrent episode, moderate F33.1 and Arthralgia of hip, unspecified laterality M25.559 [place] [address] [place] [address] October, Grief F43.20 ; Hypertension I10 ; Hyperlipidemia, unspecified hyperlipidemia type E78.5 ; Other chronic pain G89.29 and Allergic rhinitis, unspecified allergic rhinitis type J30.9 [facility] [address] [place] [id number] [address] [place] [phone] October, Major depressive disorder, r ecurrent episode, moderate F33.1 [place] [address] [place] [id number] [address] [place] [phone] Sep, Major depressive disorder, r ecurrent episode, moderate F33.1 [place] [address] [place] [id number] [address] [place] [address] Sep, [place] [address] [place] [id number] [place] [address] Sep, Major depressive disorder, r ecurrent episode, moderate F33.1 [facility] [address] [address] Sep, Grief F43.20 [place] [address] [address] Aug, Major depressive disorder, r ecurrent episode, moderate F33.1 [place] [address] [address] Aug, Bipolar 1 disorder, mixed F3 1.60 [place] [address] [address] Aug, Allergic rhinitis J30.9 ; Ce rvicalgia M54.2 and Low back pain M54.5 [place] [address] [address] Aug, Major depressive disorder, r ecurrent episode, moderate F33.1 [facility] [address] [address] Aug, Sinusitis J32.9 and Tobacco 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 [place] [address] [address] Aug, [place] [address] [address] Aug, Depressive disorder, not els ewhere classified F32.9 ; Hormone replacement therapy Z79.[address] scan, head R93.0 [place] [address] [address] Aug, Major depressive disorder, r ecurrent episode, moderate F33.1 [facility] [address] [place] [id number] [address] [place] [address] Jul, Major depressive disorder, r ecurrent episode, moderate F33.1 [place] [address] [id number] [address] [place] [phone] 17 Jul, 2015 Abdominal pain R10.9 and Hyp ertension I10 [facility] [address] [id number] [address] [place] [phone] 08 Jul, 2015 [facility] [address] [facility] [id number] [address] [place] [address] Jul, Major depressive disorder, r ecurrent episode, moderate F33.1 [facility] [address] [id number] [address] [place] [phone] 04 Jul, 2015 [facility] [address] [id number] [address] [place] [phone] Jul, [facility] [address] [facility] [id number] [address] [place] [phone] Jun, [facility] [address] [facility] [id number] [address] [place] [address] Jun, Depressive disorder, not els ewhere classified F32.9 [facility] [address] [id number] [address] [place] [phone] Jun, [facility] [address] [facility] [id number] [address] [place] [address] Jun, [facility] [address] [facility] [id number] [address] [place] [address] Jun, Arthralgia of hip, unspecifi ed laterality M25.559 ; Bruising, spontaneous R23.3 and Night sweats R61 [facility] [address] [facility] [id number] [address] [place] [phone] Jun, [facility] [address] [facility] [id number] [address] [place] [address] Jun, [facility] [address] [facility] [id number] [address] [place] [address] May, [facility] [address] [facility] [id number] [address] [place] [address] May, Myalgia M79.1 and Screening, lipid Z13.220 [facility] [address] [facility] [id number] [address] [place] [address] Apr, Status post cervical spinal fusion Z98.1 ; Fibromyalgia M79.7 and Unsteady gait R26.81 [facility] [address] [id number] [address] [place] [address] Nov, [facility] [address] [id number] [address] [place] [address] Nov, [facility] [address] [place] [id number] [address] [place] [phone] October, [facility] [address] [place] [id number] [address] [place] [address] October, [facility] [address] [place] [id number] [address] [place] [id number] October, [facility] [address] [id number] [address] [place] [phone] October, [facility] [address] [place] [id number] [address] [place] [phone] October, [facility] [address] [place] [id number] [address] [place] [address] October, Dysuria 788.1 ; Nausea 787.0 2 and Urinary tract infection 599.0 [facility] [address] [id number] [address] [place] [phone] Sep, [facility] [address] [id number] [address] [place] [address] Sep, [facility] [address] [facility] [id number] [address] [place] [address] Aug, [facility] [address] [facility] [id number] [address] [place] [phone] Aug, [facility] [place] [facility] [address] [id number] [facility] [place] [address] 24 Aug, 2014 [facility] [address] [id number] [facility] [place] [address] 24 Aug, 2014 [facility] [address] [id number] [facility] [place] [address] 23 Aug, 2014 [facility] [address] [id number] [address] [place] [address], [place] [address] 19 Aug, 2014 [facility] [address] [id number] [address] [place] [address], [place] [address] 19 Aug, 2014 [facility] [address] [id number] [address] [place] [address], [place] [address] 19 Aug, 2014 [facility] [address] [id number] [address] [place] [address], [place] [address] 19 Aug, 2014 [facility] [address] [id number] [address] [place] [address], [place] [address] 18 Aug, 2014 [facility] [address] [id number] [address] [place] [address], [place] [address] 18 Aug, 2014 [facility] [address] [id number] [address] [place] [address], [place] [address] 13 Aug, 2014 [facility] [address] [id number] [address] [place] [address], [place] [address] 13 Aug, 2014 [facility] [address] [id number] [address] [place] [address], [place] [address] 11 Aug, 2014 [facility] [address] [id number] [address] [place] [address], [place] [address] 11 Aug, 2014 [facility] [address] [id number] [address] [place] [address], [place] [address] 06 Aug, 2014 [facility] [address] [id number] [address] [place] [address], [place] [address] 06 Aug, 2014 [facility] [address] [id number] [address] [place] [address], [place] [address] 05 Aug, 2014 [facility] [place] [facility] [address] [id number] [address] [place] [address], [place] [address] 05 Aug, 2014 [facility] [place] [facility] [address] [id number] [address] [place] [address], [place] [address] Aug, [facility] [place] [facility] [address] [id number] [address] [place] [address], [place] [address] Aug, [facility] [place] [facility] [address] [id number] [address] [place] [address], [place] [address] Aug, [facility] [place] [facility] [address] [id number] [address] [place] [address], [place] [address] Jul, [facility] [place] [facility] [address] [id number] [address] [place] [address], [place] [address] Jul, 2014 [facility] [place] [facility] [address] [id number] [address] [place] [address], [place] [address] Jul, 2014 [facility] [place] [facility] [address] [id number] [address] [place] [address], [place] [address] Jul, 2014 [facility] [place] [facility] [address] [id number] [address] [place] [address], [place] [address] Jul, 2014 [facility] [place] [facility] [address] [id number] [address] [place] [address], [place] [address] Jul, 2014 [facility] [place] [facility] [address] [id number] [address] [place] [address], [place] [address] Jul, 2014 [facility] [place] [facility] [address] [id number] [address] [place] [address], [place] [address] Jul, 2014 [facility] [place] [facility] [address] [id number] [address] [place] [address], [place] [address] Jul, 2014 [facility] [place] [facility] [address] [id number] [address] [place] [address], [place] [address] Jul, 2014 [facility] [place] [facility] [address] [id number] [address] [place] [address], [place] [address] 18 Jul, 2014 [facility] [place] [facility] [address] [id number] [address] [place] [address], [place] [address] Jul, 2014 [facility] [address] [id number] [address] [place] [address], [place] [address] Jul, [facility] [address] [id number] [address] [place] [address], [place] [address] Jul, [facility] [address] [id number] [address] [place] [address], [place] [address] Jun, [facility] [address] [id number] [address] [place] [address], [place] [address] Jun, [facility] [address] [id number] [address] [place] [address], [place] [address] Jun, [facility] [address] [id number] [address] [place] [address], [place] [address] Jun, [facility] [address] [id number] [address] [place] [address], [place] [address] Jun, [facility] [address] [id number] [address] [place] [address], [place] [address] Jun, [facility] [address] [id number] [address] [place] [address], [place] [address] May, [facility] [address] [id number] [address] [place] [address], [place] [address] May, [facility] [address] [id number] [address] [place] [address], [place] [address] May, [facility] [address] [id number] [address] [place] [address], [place] [address] May, [facility] [place] [facility] [address] [id number] [address] [place] [address], [place] [address] May, [facility] [address] [id number] [address] [place] [address], [place] [address] May, [facility] [address] [id number] [address] [address] Apr, [facility] [place] [facility] [address] [id number] [address] [place] [address], [place] [address] Apr, [facility] [place] [facility] [address] [id number] [address] [place] [address], [place] [address] Apr, [facility] [place] [facility] [address] [id number] [address] [place] [address], [place] [address] Apr, [facility] [place] [facility] [address] [id number] [address] [place] [address] Apr, [facility] [place] [facility] [address] [id number] [address] [place] [address], [place] [address] Apr, [facility] [place] [facility] [address] [id number] [address] [place] [address] Mar, [facility] [place] [facility] [address] [id number] [address] [place] [address], [place] [address] Mar, [facility] [place] [facility] [address] [id number] [address] [place] [address] Mar, [facility] [place] [facility] [address] [id number] [address] [place] [address] Mar, [facility] [place] [facility] [address] [id number] [address] [place] [address] Mar, [facility] [place] [facility] [address] [id number] [address] [place] [address] Mar, [facility] [place] [facility] [address] [id number] [address] [place] [address] Mar, [facility] [place] [facility] [address] [id number] [address] [place] [address] Mar, [facility] [place] [facility] [address] [id number] [address] [place] [address] Mar, [facility] [place] [facility] [address] [id number] [address] [place] [address] Mar, [facility] [place] [facility] [address] [id number] [address] [place] [address], [place] [address] Mar, [facility] [address] [id number] [address] [place] [address], [place] [address] Mar, [facility] [address] [id number] [address] [place] [address], [place] [address] Feb, [facility] [address] [id number] [address] [place] [address], [place] [address] Feb, [facility] [address] [id number] [address] [place] [address], [place] [address] Feb, [facility] [address] [id number] [address] [place] [address], [place] [address] Feb, [facility] [address] [id number] [address] [place] [address], [place] [address] Feb, [facility] [address] [id number] [address] [place] [address], [place] [address] Feb, [facility] [address] [id number] [address] [place] [address], [place] [address] Feb, [facility] [address] [id number] [address] [place] [address], [place] [address] Jan, [facility] [address] [id number] [address] [place] [address], [place] [address] Jan, [facility] [address] [id number] [address] [place] [address], [place] [address] Jan, [facility] [address] [id number] [address] [place] [address], [place] [address] Dec, [facility] [address] [id number] [address] [place] [address], [place] [address] Dec, [facility] [address] [id number] [address] [place] [address], [place] [address] Dec, [facility] [address] [id number] [address] [place] [address], [place] [address] Dec, [facility] [address] [id number] [address] [place] [address], [place] [address] Sep, [facility] [address] [id number] [address] [place] [address], [place] [address] Sep, [facility] [address] [id number] [address] [place] [address], [place] [address] Sep, [facility] [address] [id number] [address] [place] [address], [place] [address] Sep, [facility] [address] [id number] [address] [place] [address], [place] [address] Sep, [facility] [address] [id number] [address] [place] [address], [place] [address] Sep, [facility] [address] [id number] [address] [place] [address], [place] [address] Sep, [facility] [address] [id number] [address] [place] [address], [place] [address] Sep, [facility] [address] [id number] [address] [place] [address], [place] [address] Aug, [facility] [address] [id number] [address] [place] [address], [place] [address] Aug, [facility] [address] [id number] [address] [place] [address], [place] [address] May, [facility] [address] [id number] [address] [place] [address], [place] [address] May, [facility] [address] [id number] [address] [place] [address], [place] [address] Apr, [facility] [address] [id number] [address] [place] [address], [place] [address] Apr, [facility] [address] [id number] [address] [place] [address], [place] [address] Apr, [facility] [address] [id number] [address] [place] [address], [place] [address] Apr, [facility] [address] [id number] [address] [place] [address], [place] [address] Apr, [facility] [address] [id number] [address] [place] [address], [place] [address] Apr, [facility] [address] [id number] [address] [place] [address], [place] [address] 18 May, 2012 [facility] [address] [id number] [address] [place] [address], [place] [address] 18 May, 2012 [facility] [address] [id number] [address] [place] [address], [place] [address] 15 May, 2012 [facility] [address] [id number] [address] [place] [address], [place] [address] 15 May, 2012 [facility] [address] [id number] [address] [place] [address], [place] [address] 13 May, 2012 [facility] [address] [id number] [address] [place] [address], [place] [address] 13 May, 2012 [facility] [address] [id number] [address] [place] [address], [place] [address] 13 Apr, 2012 [facility] [address] [id number] [address] [place] [address], [place] [address] 13 Apr, 2012 [facility] [address] [id number] [address] [place] [address], [place] [address] Apr, [facility] [address] [id number] [address] [place] [address], [place] [address] Apr, [facility] [address] [id number] [address] [place] [address], [place] [address] Apr, [facility] [address] [id number] [address] [place] [address], [place] [address] 08 Apr, 2012 [facility] [address] [id number] [address] [place] [address], [place] [address] Apr, [facility] [address] [id number] [address] [place] [address], [place] [address] Apr, [facility] [address] [id number] [address] [place] [address], [place] [address] Apr, [facility] [address] [id number] [address] [place] [address], [place] [address] Apr, [facility] [address] [id number] [address] [place] [address], [place] [address] Mar, [facility] [address] [id number] [address] [place] [address], [place] [address] Mar, [facility] [address] [id number] [address] [place] [address], [place] [address] Mar, [facility] [address] [id number] [address] [place] [address], [place] [address] Mar, [facility] [address] [id number] [address] [place] [address], [place] [address] Mar, [facility] [address] [id number] [address] [place] [address], [place] [address] Mar, [facility] [address] [id number] [address] [place] [address], [place] [address] Mar, [facility] [address] [id number] [address] [place] [address], [place] [address] Mar, [facility] [address] [id number] [address] [place] [address], [place] [address] Mar, [facility] [address] [id number] [address] [place] [address], [place] [address] 25 Feb, 2012 [facility] [address] [id number] [address] [place] [address], [place] [address] 16 Feb, 2012 [facility] [address] [id number] [address] [place] [address], [place] [address] 11 Feb, 2012 [facility] [address] [id number] [address] [place] [address], [place] [address] Jan, [facility] [address] [id number] [facility] [place] [address] Jan, [facility] [address] [id number] [address] [place] [address], [place] [address] Jan, [facility] [address] [id number] [address] [place] [address], [place] [address] Jan, [facility] [address] [id number] [address] [place] [address], [place] [address] Jan, [facility] [address] [id number] [address] [place] [address], [place] [address] Jan, [facility] [address] [id number] [address] [place], [place] [address], [place] [id number] 16 Jan, 2012 [facility] [address] [id number] [address] [place] [address], [place] [phone] Jan, [facility] [address] [id number] [address] [place] [address], [place] [id number] Jan, [facility] [address] [id number] [address] [place] [address], [place] [id number] Jan, [facility] [address] [id number] [address] [place] [address], [place] [id number] Dec, [facility] [address] [id number] [address] [place] [address], [place] [id number] Dec, [facility] [address] [id number] [address] [place] [address], [place] [id number] Dec, [facility] [address] [id number] [address] [place] [address], [place] [id number] Dec, [facility] [address] [id number] [address] [place] [address], [place] [id number] Nov, [facility] [address] [id number] [address] [place] [address], [place] [address] Nov, [facility] [address] [id number] [address] [place] [id number] 07 Nov, 2011 [facility] [address] [id number] [address] [place] [phone] October, [facility] [address] [id number] [address] [place] [phone] October, [facility] [address] [id number] [address] [place] [phone] October, [facility] [address] [id number] [address] [place] [phone] October, [facility] [address] [id number] [address] [place] [phone] October, [facility] [address] [id number] [address] [place] [phone] October, [facility] [address] [id number] [address] [place] [phone] Aug, [facility] [address] [id number] [address] [place] [phone] Mar, [facility] [address] [id number] [address] [place] [phone] Nov, [facility] [address] [id number] [address] [place] [phone] May, [facility] [address] [id number] [address] [place] [phone] May, [facility] [address] [id number] [address] [place] [phone] Apr, [facility] [address] [id number] [address] [place] [id number] Mar, [facility] [address] [id number] [address] [place] [id number] Mar, IMMUNIZATIONS No Known Immunizations SOCIAL HISTORY Never Assessed REASON FOR VISIT BH f/u PLAN OF CARE Activity Details Follow Up 1 Week Reason:TAMAR F/U VITAL SIGNS MEDICATIONS Unknown Medications RESULTS No Results PROCEDURES Procedure Date Ordered Result Body Site [facility] VISIT MENTAL HEALTH ESTAB PT May 16, 2017 Psychotherapy, patient &/family, 30 minutes, established patient May 16, 2017 visit needs to be added to the same day medical May 16, 2017 INSTRUCTIONS MEDICATIONS ADMINISTERED No Known [...]
--- OUTSIDE RECORDS SUMMARY | 2019-06-19 05:51 | XMS REPORT ---
Author Author Sydnie HANCOCK [facility] Address [address] [place] [address] Care Team Providers Care Rx Specialist Name Role Phone NAHOMY HANCOCK Unavailable PROBLEMS Type Condition ICD9-CM Code TZK48-GM Code Onset Dates Condition S tatus SNOMED Code Problem Hormone replacement therapy Z79.890 Ac tive 182655263 Problem Abnormal CT scan, head R93.0 Active 191752740 Problem Sensorineural hearing loss (SNHL) of both ears H90 .3 Active 772088783 Problem History of colon polyps Z86.010 Active 813492544 Problem Bruising, spontaneous R23.3 Active 657681364 Problem Generalized anxiety disorder F41.1 A ctive 27764862 Problem Arthralgia of hip, unspecified laterality M25.559 Active 43291383 Problem Hematuria, unspecified type R31.9 Ac tive 56849947 Problem Imbalance R26.89 Active 754939061 Problem Hammer toe of right foot M20.41 Activ e 421727469 Problem Plantar wart of right foot B07.0 Act mitchell [id number] Problem Sciatica of left side M54.32 Active 77309622 Problem Hyperlipidemia, unspecified hyperlipidemia type E7 8.5 Active 30336981 Problem Hypertension I10 Active 5238027 3 Problem Night sweats R61 Active 7041689 0 Problem Fibromyalgia M79.7 Active 1946307 7 Problem Major depressive disorder, recurrent episode, moderate F33.1 Active 880877190 Problem Acute left-sided low back pain with left-sided sciatica M54.42 Active 114986205 Problem Bladder spasm N32.89 Active 143471 006 Problem Gastritis without bleeding, unspecified chronicity, unspecified gastritis type K29.70 Active 595280979 Problem Bipolar 1 disorder, mixed F31.60 Acti ve 41281260 Problem Grief F43.20 Active 64287442 Problem Other chronic pain G89.29 Active 8 4789163 Problem Allergic rhinitis J30.9 Active 61 722959 Problem Hot flashes due to menopause N95.1 A ctive 342447978 Problem Ataxia R27.0 Active 51805188 Problem Hearing loss, unspecified laterality H91.90 Active 79342599 ALLERGIES No Information ENCOUNTERS Encounter Location Date Diagnosis [facility] [address] [facility] [id number] [address] [place] [phone] Dec, [facility] [address] [facility] [id number] [address] [place] [phone] Dec, [facility] [address] [facility] [id number] [address] [place] [phone] Dec, [facility] [address] [facility] [id number] [address] [place] [address] Dec, [facility] [address] [place] [id number] [address] [place] [phone] Nov, [facility] [address] [facility] [id number] [address] [place] [phone] Nov, Bipolar 1 disorder, mixed F3 1.60 [facility] [address] [facility] [id number] [address] [place] [phone] Nov, Allergic rhinitis J30.9 [facility] [address] [facility] [id number] [address] [place] [phone] Nov, Allergic rhinitis J30.9 [facility] [address] [facility] [id number] [address] [place] [phone] Nov, [facility] [address] [facility] [id number] [address] [place] [phone] Nov, Bipolar 1 disorder, mixed F3 1.60 [facility] [address] [facility] [id number] [address] [place] [address] Nov, Fibromyalgia M79.7 and Aller gic rhinitis J30.9 [facility] [address] [facility] [id number] [address] [place] [phone] October, Bipolar 1 disorder, mixed F3 1.60 [facility] [address] [facility] [id number] [address] [place] [phone] October, Acute nasopharyngitis J00 [facility] [address] [facility] [id number] [address] [place] [phone] October, Bitten or stung by nonvenomo us insect and other nonvenomous arthropods, initial encounter W57.XXXA and Insect bite (nonvenomous) of abdominal wall, initial encounter S30.861A [facility] [address] [facility] [id number] [address] [place] [phone] October, Insect bite (nonvenomous) of abdominal wall, initial encounter S30.861A ; Bitten or stung by nonvenomous insect and other nonvenomous arthropods, initial encounter W57.XXXA ; Allergic rhinitis J30.9 and Low back pain M54.5 [facility] [address] [facility] [id number] [address] [place] [address] October, Bipolar 1 disorder, mixed F3 1.60 [facility] [address] [facility] [id number] [address] [place] [phone] October, [facility] [address] [place] [id number] [address] [place] [phone] October, [facility] [address] [facility] [id number] [address] [place] [phone] October, Bipolar 1 disorder, mixed F3 1.60 [facility] [address] [facility] [id number] [address] [place] [address] Sep, Bipolar 1 disorder, mixed F3 1.60 [facility] [address] [facility] [id number] [address] [place] [address] Sep, Other chronic pain G89.29 [facility] [address] [facility] [id number] [address] [place] [phone] Sep, [facility] [address] [place] [id number] [address] [place] [phone] Sep, Bipolar 1 disorder, mixed F3 1.60 [facility] [address] [facility] [id number] [address] [place] [address] Sep, Allergic rhinitis J30.9 and Sciatica of left side M54.32 [facility] [address] [facility] [id number] [address] [place] [phone] Sep, Bipolar 1 disorder, mixed F3 1.60 [facility] [address] [place] [id number] [address] [place] [address] Sep, Bipolar 1 disorder, mixed F3 1.60 and Generalized anxiety disorder F41.1 [facility] [address] [place] [id number] [address] [place] [address] Aug, [facility] [address] [place] [id number] [address] [place] [phone] Aug, Bipolar 1 disorder, mixed F3 1.60 [facility] [address] [place] [id number] [address] [place] [phone] Aug, Bipolar 1 disorder, mixed F3 1.60 [facility] [address] [place] [id number] [address] [place] [phone] Aug, [facility] [address] [place] [id number] [address] [place], [place] [phone] Aug, Generalized anxiety disorder F41.1 [facility] [address] [place] [id number] [address] [place] [address] Aug, Bipolar 1 disorder, mixed F3 1.60 [facility] [address] [place] [id number] [address] [place] [phone] Aug, Plantar wart of right foot B 07.0 [facility] [address] [facility] [id number] [address] [place] [address] Aug, Bipolar 1 disorder, mixed F3 1.60 [facility] [address] [place] [id number] [address] [place] [phone] Jul, Bipolar 1 disorder, mixed F3 1.60 [facility] [address] [facility] [id number] [address] [place] [phone] Jul, [facility] [address] [facility] [id number] [address] [place] [phone] 14 Jul, 2017 Bipolar 1 disorder, mixed F3 1.60 [facility] [address] [facility] [id number] [address] [place] [phone] Jul, Generalized anxiety disorder F41.1 [facility] [address] [facility] [id number] [address] [place] [phone] Jul, Bipolar 1 disorder, mixed F3 1.60 [facility] [address] [facility] [id number] [address] [place] [phone] 07 Jul, 2017 Acute left-sided low back pa in with left-sided sciatica M54.42 [facility] [address] [place] [id number] [address] [place] [phone] Jul, Coccydynia M53.3 [facility] [address] [facility] [id number] [address] [place] [address] Jun, Bipolar 1 disorder, mixed F3 1.60 [facility] [address] [facility] [id number] [address] [place] [phone] Jun, Acute nasopharyngitis J00 [facility] [address] [facility] [id number] [address] [place] [phone] Jun, Bipolar 1 disorder, mixed F3 1.60 [facility] [address] [facility] [id number] [address] [place] [phone] Jun, Fibromyalgia M79.7 [facility] [address] [facility] [id number] [address] [place] [address] Jun, Bipolar 1 disorder, mixed F3 1.60 [facility] [address] [facility] [id number] [address] [place] [phone] Jun, Fibromyalgia M79.7 and Bipol ar 1 disorder, mixed F31.60 [place] [address] [address] May, Bipolar 1 disorder, mixed F3 1.60 ; Generalized anxiety disorder F41.1 and 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 [place] [address] [address] May, Bipolar 1 disorder, mixed F3 1.60 [facility] [address] [address] 14 May, 2017 Cough R05 and Body aches R52 [facility] [address] [address] 10 May, 2017 Bladder spasm N32.89 and Acu te cystitis without hematuria N30.00 [place] [address] [address] 07 May, 2017 Bipolar 1 disorder, mixed F3 1.60 [place] [address] [address] 30 Apr, 2017 [place] [address] [address] Apr, Major depressive disorder, r ecurrent episode, moderate F33.1 and Encounter for immunization Z23 [place] [address] [address] Apr, Bipolar 1 disorder, mixed F3 1.60 [place] [address] [address] Apr, Bipolar 1 disorder, mixed F3 1.60 [place] [address] [address] 16 Apr, 2017 Bipolar 1 disorder, mixed F3 1.60 [place] [address] [address] 13 Apr, 2017 Yeast vaginitis B37.3 [place] [address] [place] [address] [place] [phone] Apr, Bipolar 1 disorder, mixed F3 1.60 [facility] [address] [place] [id number] [address] [place] [address] Apr, Cellulitis L03.[address] for immunization Z23 [facility] [address] [place] [id number] [place] [address] Apr, Bipolar 1 disorder, mixed F3 1.60 [facility] [address] [place] [id number] [address] [place] [address] Mar, Bipolar 1 disorder, mixed F3 1.60 [place] [address] [address] Mar, Bipolar 1 disorder, mixed F3 1.60 [place] [address] [address] Mar, Imbalance R26.89 and Encount er for immunization Z23 [facility] [address] [place] [id number] [address] [place] [phone] Mar, Generalized anxiety disorder F41.1 [place] [address] [address] Mar, Bipolar 1 disorder, mixed F3 1.60 [facility] [address] [place] [id number] [address] [place] [address] Mar, Generalized anxiety disorder F41.1 [facility] [address] [place] [id number] [address] [place] [address] Mar, Bipolar 1 disorder, mixed F3 1.60 [place] [address] [place] [id number] [address] [place] [address] Mar, Bipolar 1 disorder, mixed F3 1.60 [facility] [address] [place] [id number] [address] [place] [address] Feb, Bipolar 1 disorder, mixed F3 1.60 [place] [address] [place] [address] Feb, Bipolar 1 disorder, mixed F3 1.60 and Generalized anxiety disorder F41.1 [place] [address] [address] Feb, Gastritis without bleeding, unspecified chronicity, unspecified gastritis type K29.70 ; Hammer toe of right foot M20.41 and Other viral warts B07.8 [place] [address] [address] Feb, Bipolar 1 disorder, mixed F3 1.60 [place] [address] [address] Feb, Bipolar 1 disorder, mixed F3 1.60 [place] [address] [address] 05 Feb, 2017 Bipolar 1 disorder, mixed F3 1.60 [place] [address] [address] Jan, Encounter for screening mamm ogram for breast cancer Z12.31 ; Other viral warts B07.8 and Allergic rhinitis J30.9 [place] [address] [address] Jan, Bipolar 1 disorder, mixed F3 1.60 [place] [address] [address] Jan, Bipolar 1 disorder, mixed F3 1.60 [place] [address] [place] [id number] [address] [place] [address] Jan, [place] [address] [address] Jan, Bipolar 1 disorder, mixed F3 1.60 [place] [address] [place] [id number] [place] [address] Jan, Bipolar 1 disorder, mixed F3 1.60 [place] [address] [place] [address] Jan, Allergic rhinitis J30.9 ; He maturia R31.9 and Colon cancer screening Z12.11 [place] [address] [place] [id number] [address] [place] [address] Dec, Bipolar 1 disorder, mixed F3 1.60 [place] [address] [place] [id number] [address] [place] [address] Dec, Bipolar 1 disorder, mixed F3 1.60 ; Generalized anxiety disorder F41.1 and 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 [place] [address] [place] [id number] [address] [place] [address] Dec, Bipolar 1 disorder, mixed F3 1.60 [place] [address] [place] [id number] [address] [place] [address] Dec, Bipolar 1 disorder, mixed F3 1.60 [place] [address] [place] [address] Dec, Bipolar 1 disorder, mixed F3 1.60 [place] [address] [place] [address] Dec, Low back pain M54.5 and Recu rrent urinary tract infection N39.0 [place] [address] [place] [id number] [address] [place] [address] Nov, Bipolar 1 disorder, mixed F3 1.60 [place] [address] [place] [id number] [address] [place] [address] Nov, Bipolar 1 disorder, mixed F3 1.60 [place] [address] [place] [id number] [address] [place] [address] Nov, Bipolar 1 disorder, mixed F3 1.60 [place] [address] [place] [id number] [address] [place] [phone] Nov, Bipolar 1 disorder, mixed F3 1.60 [place] [address] [place] [id number] [address] [place] [address] Nov, [place] [address] [place] [id number] [address] [place] [address] Nov, Anesthesia of skin R20.0 ; F requent UTI N39.0 ; Tobacco abuse Z72.0 and Colon cancer screening Z12.11 [place] [address] [place] [address] Nov, Bipolar 1 disorder, mixed F3 1.60 [place] [address] [place] [id number] [address] [place] [address] October, Bipolar 1 disorder, mixed F3 1.60 [place] [address] [address] October, Bipolar 1 disorder, mixed F3 1.60 [place] [address] [address] October, Bipolar 1 disorder, mixed F3 1.60 [place] [address] [place] [id number] [address] [place] [address] October, Bipolar 1 disorder, mixed F3 1.60 [place] [address] [address] October, Bipolar 1 disorder, mixed F3 1.60 [place] [address] [address] October, Cervicalgia M54.2 and Bipola r 1 disorder, mixed F31.60 [place] [address] [place] [id number] [address] [place] [address] October, Hypertension I10 ; Hyperlipi demia, unspecified hyperlipidemia type E78.5 and Family history of thyroid disease Z83.49 [place] [address] [place] [id number] [address] [place] [address] October, [place] [address] [place] [id number] [place] [address] October, Hypertension I10 ; Hyperlipi demia, unspecified hyperlipidemia type E78.5 and Family history of thyroid problem Z83.49 [place] [address] [address] October, Bipolar 1 disorder, mixed F3 1.60 [place] [address] [address] Sep, Bipolar 1 disorder, mixed F3 1.60 [place] [address] [address] Sep, Bipolar 1 disorder, mixed F3 1.60 [place] [address] [address] Sep, Bipolar 1 disorder, mixed F3 1.60 [place] [address] [address] Sep, History of colon polyps Z86. 010 and Hematochezia K92.1 [place] [address] [address] Sep, Major depressive disorder, r ecurrent episode, moderate F33.1 [place] [address] [address] Sep, Bipolar 1 disorder, mixed F3 1.60 [place] [address] [address] Aug, Hot flashes due to menopause N95.1 [place] [address] [place] [address] Aug, Bipolar 1 disorder, mixed F3 1.60 [place] [address] [address] Aug, [place] [address] [address] Aug, Bipolar 1 disorder, mixed F3 1.60 [place] [address] [address] Aug, Bipolar 1 disorder, mixed F3 1.60 [place] [address] [address] Aug, Hot flashes due to menopause N95.1 ; Cervicalgia M54.2 and Ataxia R27.0 [place] [address] [address] Jul, Bipolar 1 disorder, mixed F3 1.60 [place] [address] [address] Jul, Bipolar 1 disorder, mixed F3 1.60 [place] [address] Jul, Bipolar 1 disorder, mixed F3 1.60 [place] [address] [address] Jul, Bipolar 1 disorder, mixed F3 1.60 [place] [address] [address] Jul, Bipolar 1 disorder, mixed F3 1.60 [place] [address] [address] Jul, Cervicalgia M54.2 ; Tremor R 25.1 ; Hearing abnormally acute, unspecified laterality H93.239 ; Alopecia L65.9 ; Encounter for immunization Z23 and Family history of thyroid disease Z83.49 [place] [address] [address] Jul, Bipolar 1 disorder, mixed F3 1.60 [place] [address] [place] [address] Jun, [place] [address] [address] Jun, Hearing disorder, unspecifie d laterality H93.299 [place] [address] [place] [id number] Jun, Bipolar 1 disorder, mixed F3 1.60 [facility] [address] [id number] [address] [place] [address] Jun, Bipolar 1 disorder, mixed F3 1.60 [facility] [address] [facility] [id number] [address] [place] [address] Jun, Allergic rhinitis J30.9 [facility] [address] [id number] [address] [place] [address] Jun, Bipolar 1 disorder, mixed F3 1.60 [facility] [address] [id number] [address] [place] [address] Jun, Bipolar 1 disorder, mixed F3 1.60 [facility] [address] [facility] [id number] [address] [place] [address] Jun, Allergic rhinitis J30.9 [facility] [address] [facility] [id number] [address] [place] [address] Jun, Allergic rhinitis J30.9 [facility] [address] [facility] [id number] [address] [place] [address] Jun, Bipolar 1 disorder, mixed F3 1.60 [facility] [address] [facility] [id number] [address] [place] [address] May, Bipolar 1 disorder, mixed F3 1.60 [facility] [address] [facility] [id number] [address] [place] [address] May, Bipolar 1 disorder, mixed F3 1.60 [facility] [address] [id number] [address] [place] [address] May, [facility] [address] [facility] [id number] [address] [place] [address] May, Bipolar 1 disorder, mixed F3 1.60 [facility] [address] [facility] [id number] [address] [place] [address] May, Bipolar 1 disorder, mixed F3 1.60 [facility] [address] [facility] [id number] [address] [place] [phone] May, [facility] [address] [facility] [id number] [address] [place] [phone] May, [facility] [address] [facility] [id number] [address] [place] [id number] May, [facility] [address] [place] [id number] [place] [phone] May, Abdominal pain, unspecified location R10.9 [facility] [address] [place] [id number] [address] [place] [phone] May, [facility] [address] [place] [id number] [place] [phone] Apr, Hematuria R31.9 ; Ataxia R27 .0 and Hearing loss, unspecified laterality H91.90 [facility] [address] [place] [id number] [address] [place] [phone] Apr, Bipolar 1 disorder, mixed F3 1.60 [facility] [address] [facility] [id number] [address] [place] [phone] Apr, Acute effusion of both middl e ears H65.193 [facility] [address] [place] [id number] [address] [place] [phone] Apr, Hematuria R31.9 and Pyelonep hritis N12 [facility] [address] [place] [id number] [address] [place] [phone] Apr, [facility] [address] [facility] [id number] [address] [place] [phone] Mar, Bipolar 1 disorder, mixed F3 1.60 [facility] [address] [place] [id number] [address] [place] [phone] Mar, [facility] [address] [place] [id number] [address] [place] [phone] Mar, Bipolar 1 disorder, mixed F3 1.60 [place] [id number] [place] [id number] Mar, Bipolar 1 disorder, mixed F3 1.60 [place] [id number] Mar, Encounter for immunization Z 23 and Gastritis without bleeding, unspecified chronicity, unspecified gastritis type K29.70 [place] [address] [place] [address] Mar, Bipolar 1 disorder, mixed F3 1.60 and Grief F43.20 [place] [address] Mar, Gastritis without bleeding, unspecified chronicity, unspecified gastritis type K29.70 [place] [address] Mar, Bipolar 1 disorder, mixed F3 1.60 [place] [address] [place] [id number] [address] [place] [address] Mar, Gastritis without bleeding, unspecified chronicity, unspecified gastritis type K29.70 [place] [address] [place] [address] Mar, [place] [address] [place] [address] Feb, Bipolar 1 disorder, mixed F3 1.60 [place] [address] [place] [address] Feb, Bipolar 1 disorder, mixed F3 1.60 and Grief F43.20 [place] [address] [place] [id number] [address] [place] [address] Feb, Gastritis without bleeding, unspecified chronicity, unspecified gastritis type K29.70 [place] [address] [place] [id number] [address] [place] [address] 14 Feb, 2016 Bipolar 1 disorder, mixed F3 1.60 [facility] [address] [facility] [id number] [address] [place] [address] Feb, Gastroesophageal reflux dise ase, esophagitis presence not specified K21.9 [facility] [address] [facility] [id number] [address] [place] [address] Jan, Bipolar 1 disorder, mixed F3 1.60 [facility] [address] [place] [id number] [address] [place] [address] Jan, Bipolar 1 disorder, mixed F3 1.60 and Unsteady gait R26.81 [facility] [address] [place] [id number] [address] [place] [address] Jan, Bipolar 1 disorder, mixed F3 1.60 [place] [address] [place] [id number] [place] [address] Jan, Bipolar 1 disorder, mixed F3 1.60 and 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 [place] [address] [address] Jan, Bipolar 1 disorder, mixed F3 1.60 [place] [address] [address] Jan, Bipolar 1 disorder, mixed F3 1.60 [place] [address] [place] [id number] [place] [address] Jan, Bipolar 1 disorder, mixed F3 1.60 ; Grief F43.20 and Other long-term (current) 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 Z79.899 [place] [address] [place] [id number] [address] [place] [address] Jan, Bipolar 1 disorder, mixed F3 1.60 [place] [address] [place] [id number] [address] [place] [address] Dec, [place] [address] [place] [id number] [address] [place] [address] Dec, Bipolar 1 disorder, mixed F3 1.60 ; Vitamin D deficiency, unspecified E55.9 ; H/O allergic rhinitis Z87.09 ; Other chronic pain G89.29 and Dorsalgia, unspecified M54.9 [place] [address] [facility] [id number] [address] [place] [address] Dec, [facility] [address] [facility] [id number] [address] [place] [address] Dec, Bipolar 1 disorder, mixed F3 1.60 [facility] [address] [facility] [id number] [address] [place] [address] Dec, Major depressive disorder, r ecurrent episode, moderate F33.1 [place] [address] [facility] [id number] [address] [place] [address] Dec, Major depressive disorder, r ecurrent episode, moderate F33.1 [place] [address] [place] [id number] [address] [place] [address] Nov, [place] [address] [facility] [id number] [address] [place] [address] Nov, Bipolar 1 disorder, mixed F3 1.60 [place] [address] [facility] [id number] [address] [place] [address] Nov, Major depressive disorder, r ecurrent episode, moderate F33.1 [place] [address] [facility] [id number] [address] [place] [address] Nov, Cervicalgia M54.2 ; Arthralg ia of hip, unspecified laterality M25.559 ; Allergic rhinitis J30.9 and Hormone replacement therapy Z79.890 [facility] [address] [facility] [id number] [address] [place] [address] Nov, Other seasonal allergic rhin itis J30.2 [facility] [address] [facility] [id number] [address] [place] [address] October, Major depressive disorder, r ecurrent episode, moderate F33.1 [facility] [address] [facility] [id number] [address] [place] [address] October, Major depressive disorder, r ecurrent episode, moderate F33.1 and Arthralgia of hip, unspecified laterality M25.559 [place] [address] [place] [id number] [place] [address] October, Grief F43.20 ; Hypertension I10 ; Hyperlipidemia, unspecified hyperlipidemia type E78.5 ; Other chronic pain G89.29 and Allergic rhinitis, unspecified allergic rhinitis type J30.9 [place] [address] [place] [id number] [address] [place] [address] October, Major depressive disorder, r ecurrent episode, moderate F33.1 [place] [address] [place] [id number] [address] [place] [address] Sep, Major depressive disorder, r ecurrent episode, moderate F33.1 [place] [address] [address] Sep, [place] [address] [address] Sep, Major depressive disorder, r ecurrent episode, moderate F33.1 [place] [address] [place] [id number] [address] [place] [address] Sep, Grief F43.20 [place] [address] [place] [id number] [address] [place] [address] Aug, Major depressive disorder, r ecurrent episode, moderate F33.1 [place] [address] [place] [id number] [address] [place] [address] Aug, Bipolar 1 disorder, mixed F3 1.60 [place] [address] [facility] [id number] [address] [place] [address] Aug, Allergic rhinitis J30.9 ; Ce rvicalgia M54.2 and Low back pain M54.5 [place] [address] [place] [id number] [address] [place] [address] Aug, Major depressive disorder, r ecurrent episode, moderate F33.1 [facility] [address] [id number] [address] [place] [address] Aug, Sinusitis J32.9 and Tobacco 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 [facility] [address] [id number] [address] [place] [address] Aug, [facility] [address] [facility] [id number] [address] [place] [address] Aug, Depressive disorder, not els ewhere classified F32.9 ; Hormone replacement therapy Z79.[address] scan, head R93.0 [facility] [address] [id number] [address] [place] [address] Aug, Major depressive disorder, r ecurrent episode, moderate F33.1 [facility] [address] [facility] [id number] [address] [place] [address] Jul, Major depressive disorder, r ecurrent episode, moderate F33.1 [facility] [address] [facility] [id number] [address] [place] [address] Jul, Abdominal pain R10.9 and Hyp ertension I10 [facility] [address] [facility] [id number] [address] [place] [address] Jul, [facility] [address] [facility] [id number] [address] [place] [address] Jul, Major depressive disorder, r ecurrent episode, moderate F33.1 [facility] [address] [facility] [id number] [address] [place] [address] Jul, [facility] [address] [facility] [id number] [address] [place] [address] Jul, [facility] [address] [facility] [id number] [address] [place] [address] Jun, [facility] [address] [facility] [id number] [address] [place] [address] Jun, Depressive disorder, not els ewhere classified F32.9 [facility] [address] [id number] [address] [place] [address] Jun, [facility] [address] [id number] [address] [place] [address] Jun, [facility] [address] [id number] [address] [place] [address] Jun, Arthralgia of hip, unspecifi ed laterality M25.559 ; Bruising, spontaneous R23.3 and Night sweats R61 [facility] [address] [id number] [address] [place] [address] Jun, [facility] [address] [id number] [address] [place] [address] Jun, [facility] [address] [id number] [address] [place] [address] May, [facility] [address] [id number] [address] [place] [address] May, Myalgia M79.1 and Screening, lipid Z13.220 [facility] [address] [id number] [address] [place] [address] Apr, Status post cervical spinal fusion Z98.1 ; Fibromyalgia M79.7 and Unsteady gait R26.81 [facility] [address] [id number] [address] [place] [address] Nov, [facility] [address] [id number] [address] [place] [address] Nov, [facility] [address] [id number] [address] [place] [address] October, [facility] [address] [id number] [address] [place] [address] October, [facility] [address] [id number] [address] [place] [address] October, [facility] [address] [id number] [address] [place] [address] October, [facility] [address] [id number] [address] [place] [address] October, [facility] [address] [id number] [address] [place] [address] October, Dysuria 788.1 ; Nausea 787.0 2 and Urinary tract infection 599.0 [facility] [address] [id number] [address] [place] [address] Sep, [facility] [address] [id number] [address] [place] [address] Sep, [facility] [address] [id number] [address] [place] [address] Aug, [facility] [address] [id number] [address] [place] [phone] Aug, [facility] [address] [id number] [address] [place] [address] Aug, [facility] [address] [id number] [address] [place] [address] Aug, [facility] [address] [id number] [address] [place] [id number] Aug, [facility] [address] [id number] [address] [place] [phone] Aug, [facility] [address] [id number] [address] [place] [address] Aug, [facility] [address] [id number] [address] [place] [address] Aug, [facility] [address] [id number] [address] [place] [id number] Aug, [facility] [address] [id number] [address] [place] [address] 18 Aug, 2014 [facility] [address] [id number] [address] [place] [address], [place] [address] 18 Aug, 2014 [facility] [address] [id number] [address] [place] [address], [place] [address] 13 Aug, 2014 [facility] [address] [id number] [address] [place] [address], [place] [address] 13 Aug, 2014 [facility] [address] [id number] [address] [place] [address], [place] [address] Aug, 2014 [facility] [address] [id number] [address] [place] [address], [place] [address] Aug, [facility] [address] [id number] [address] [place] [address], [place] [address] Aug, [facility] [address] [id number] [address] [place] [address], [place] [address] Aug, 2014 [facility] [address] [id number] [address] [place] [address], [place] [address] 05 Aug, 2014 [facility] [address] [id number] [address] [place] [address], [place] [address] 05 Aug, 2014 [facility] [address] [id number] [address] [place] [address], [place] [address] Aug, [facility] [address] [id number] [address] [place] [address], [place] [address] Aug, [facility] [address] [id number] [address] [place] [address], [place] [address] Aug, [facility] [address] [id number] [address] [place] [address], [place] [address] Jul, [facility] [address] [id number] [address] [place] [address], [place] [address] Jul, [facility] [address] [id number] [address] [place] [address], [place] [address] Jul, [facility] [address] [id number] [address] [place] [address], [place] [address] Jul, [facility] [address] [id number] [address] [place] [address], [place] [address] Jul, [facility] [address] [id number] [address] [place] [address], [place] [address] Jul, [facility] [address] [id number] [address] [place] [address], [place] [address] Jul, 2014 [facility] [address] [id number] [address] [place] [address], [place] [address] Jul, 2014 [facility] [address] [id number] [address] [place] [address], [place] [address] Jul, [facility] [address] [id number] [address] [place] [address], [place] [address] Jul, 2014 [facility] [address] [id number] [address] [place] [address], [place] [address] Jul, 2014 [facility] [address] [id number] [address] [place] [address], [place] [address] Jul, [facility] [address] [id number] [address] [place] [address], [place] [address] Jul, [facility] [address] [id number] [address] [place] [address], [place] [address] Jul, [facility] [address] [id number] [address] [place] [address], [place] [address] Jun, [facility] [address] [id number] [address] [place] [address], [place] [address] Jun, [facility] [address] [id number] [address] [place] [address], [place] [address] Jun, [facility] [address] [id number] [address] [place] [address], [place] [address] Jun, [facility] [address] [id number] [address] [place] [address], [place] [address] Jun, [facility] [address] [id number] [address] [place] [address], [place] [address] Jun, [facility] [address] [id number] [address] [place] [address], [place] [address] May, [facility] [address] [id number] [address] [place] [address], [place] [address] May, [facility] [address] [id number] [address] [place] [address], [place] [address] May, [facility] [address] [id number] [address] [place] [address], [place] [address] May, [facility] [address] [id number] [address] [place] [address], [place] [address] May, [facility] [address] [id number] [address] [place] [address], [place] [address] May, [facility] [address] [id number] [address] [place] [address], [place] [address] Apr, [facility] [address] [id number] [address] [place] [address], [place] [address] Apr, [facility] [address] [id number] [address] [place] [address], [place] [address] Apr, [facility] [address] [id number] [address] [place] [address], [place] [address] Apr, [facility] [address] [id number] [address] [place] [address], [place] [address] Apr, [facility] [address] [id number] [address] [place] [address], [place] [address] Apr, [facility] [address] [id number] [address] [place] [address], [place] [address] Mar, [facility] [address] [id number] [address] [place] [address], [place] [address] Mar, [facility] [address] [id number] [address] [place] [address], [place] [address] Mar, [facility] [address] [id number] [address] [place] [address], [place] [address] Mar, 2013 [facility] [address] [id number] [address] [place] [address], [place] [address] Mar, 2013 [facility] [address] [id number] [address] [place] [address], [place] [address] Mar, 2013 [facility] [address] [id number] [address] [place] [address], [place] [address] Mar, 2013 [facility] [address] [id number] [address] [place] [address], [place] [address] Mar, 2013 [facility] [address] [id number] [address] [place] [address], [place] [address] Mar, 2013 [facility] [address] [id number] [address] [place] [address], [place] [address] Mar, 2013 [facility] [address] [id number] [address] [place] [address], [place] [address] Mar, [facility] [address] [id number] [address] [place] [address], [place] [address] Mar, [facility] [address] [id number] [address] [place] [address], [place] [address] 30 Feb, 2013 [facility] [address] [id number] [address] [place] [address], [place] [address] 29 Sep, 2013 [facility] [address] [id number] [address] [place] [address], [place] [address] 29 Sep, 2013 [facility] [address] [id number] [address] [place] [address], [place] [address] 23 Sep, 2013 [facility] [address] [id number] [address] [place] [address], [place] [address] 23 Feb, 2013 [facility] [address] [id number] [address] [place] [address], [place] [address] 08 Feb, 2013 [facility] [address] [id number] [address] [place] [address] [place] [address] Feb, [facility] [address] [id number] [address] [place] [address], [place] [address] Jan, [facility] [address] [id number] [address] [place] [address], [place] [address] Jan, [facility] [address] [id number] [address] [place] [address], [place] [address] Jan, [facility] [address] [id number] [address] [place] [address], [place] [address] Dec, [facility] [address] [id number] [address] [place] [address], [place] [address] Dec, [facility] [address] [id number] [address] [place] [address], [place] [address] Dec, [facility] [address] [id number] [address] [place] [address], [place] [address] Dec, [facility] [address] [id number] [address] [place] [address], [place] [address] Sep, [facility] [address] [id number] [address] [place] [address], [place] [address] Sep, [facility] [address] [id number] [address] [place] [address], [place] [address] Sep, [facility] [address] [id number] [address] [place] [address], [place] [address] Sep, [facility] [address] [id number] [address] [place] [address], [place] [address] Sep, [facility] [address] [id number] [address] [place] [address], [place] [address] Sep, [facility] [address] [id number] [address] [place] [address], [place] [address] Sep, [facility] [address] [id number] [address] [place] [address], [place] [address] Sep, [facility] [address] [id number] [address] [place] [address], [place] [address] 10 Aug, 2013 [facility] [address] [id number] [address] [place] [address], [place] [address] 10 Aug, 2013 [facility] [address] [id number] [address] [place] [address], [place] [address] May, [facility] [address] [id number] [address] [place] [address], [place] [address] May, [facility] [address] [id number] [address] [place] [address], [place] [address] Apr, [facility] [address] [id number] [address] [place] [address], [place] [address] Apr, [facility] [address] [id number] [address] [place] [address], [place] [address] Apr, [facility] [address] [id number] [address] [place] [address], [place] [address] Apr, [facility] [address] [id number] [address] [place] [address], [place] [address] Apr, [facility] [address] [id number] [address] [place] [address], [place] [address] Apr, [facility] [address] [id number] [address] [place] [address], [place] [address] 18 May, 2012 [facility] [address] [id number] [address] [place] [address], [place] [address] 18 May, 2012 [facility] [address] [id number] [address] [place] [address], [place] [address] 15 May, 2012 [facility] [address] [id number] [address] [place] [address], [place] [address] 15 May, 2012 [facility] [address] [id number] [address] [place] [address], [place] [address] 13 May, 2012 [facility] [address] [id number] [address] [place] [address], [place] [address] May, [facility] [address] [id number] [address] [place] [address], [place] [address] Apr, [facility] [address] [id number] [address] [place] [address], [place] [address] Apr, [facility] [address] [id number] [address] [place] [address], [place] [address] Apr, [facility] [address] [id number] [address] [place] [id number] Apr, [facility] [address] [id number] [address] [place] [address], [place] [address] Apr, [facility] [address] [id number] [address] [place] [id number] Apr, [facility] [address] [id number] [address] [place] [address], [place] [address] Apr, [facility] [address] [id number] [address] [place] [id number] Apr, [facility] [facility] [address] [id number] [address] [place] [id number] Apr, [facility] [address] [id number] [address] [place] [phone] Apr, [facility] [address] [id number] [address] [place] [id number] Mar, [facility] [address] [id number] [address] [place] [id number] Mar, [facility] [address] [id number] [address] [place] [address], [place] [address] Mar, [facility] [address] [id number] [address] [place] [phone] Mar, [facility] [address] [id number] [address] [place] [id number] Mar, [facility] [address] [id number] [address] [place] [address], [place] [id number] Mar, [facility] [address] [id number] [address] [place] [address], [place] [id number] Mar, [facility] [address] [id number] [address] [place] [address], [place] [address] Mar, [facility] [address] [id number] [address] [place] [address], [place] [id number] Mar, [facility] [address] [id number] [address] [place] [address], [place] [id number] 25 Feb, 2012 [facility] [address] [id number] [address] [place] [address], [place] [address] 16 Feb, 2012 [facility] [address] [id number] [address] [place] [address], [place] [address] 11 Feb, 2012 [facility] [address] [id number] [address] [place] [address], [place] [address] Jan, [facility] [address] [id number] [address] [place] [address], [place] [address] Jan, [facility] [address] [id number] [address] [place] [address], [place] [id number] Jan, [facility] [address] [id number] [address] [place] [address], [place] [id number] 18 Jan, 2012 [facility] [address] [id number] [address] [place] [address], [place] [address] Jan, [facility] [address] [id number] [address] [place] [address], [place] [id number] 17 Jan, 2012 [facility] [address] [id number] [address] [place] [address], [place] [id number] 16 Jan, 2012 [facility] [address] [id number] [address] [place] [address], [place] [address] 15 Jan, 2012 [facility] [address] [id number] [address] [place] [address], [place] [id number] Jan, [facility] [address] [id number] [address] [place] [address], [place] [id number] Jan, [facility] [address] [id number] [address] [place] [address], [place] [address] Dec, [facility] [address] [id number] [address] [place] [address], [place] [id number] Dec, [facility] [address] [id number] [address] [place] [address], [place] [address] Dec, [facility] [address] [id number] [address] [place] [address], [place] [address] Dec, [facility] [address] [id number] [address] [place] [address], [place] [address] Nov, [facility] [address] [id number] [address] [place] [address], [place] [address] Nov, [facility] [address] [id number] [address] [place] [address], [place] [address] Nov, [facility] [address] [id number] [address] [place] [address], [place] [id number] October, [facility] [address] [id number] [address] [place] [address], [place] [address] October, [facility] [address] [id number] [address] [place] [address], [place] [id number] October, [facility] [address] [id number] [address] [place] [address], [place] [address] October, [facility] [address] [id number] [address] [place] [address], [place] [address] October, [facility] [address] [id number] [address] [place] [address], [place] [address] October, [facility] [address] [id number] [address] [place] [address], [place] [id number] Aug, [facility] [address] [id number] [address] [place] [id number] 10 Mar, 2011 [facility] [address] [facility] [id number] [address] [place] [phone] Nov, [facility] [address] [facility] [id number] [address] [place] [phone] May, [facility] [address] [facility] [id number] [address] [place] [phone] May, [facility] [address] [facility] [id number] [address] [place] [id number] Apr, [facility] [address] [facility] [id number] [address] [place] [id number] Mar, [facility] [address] [facility] [id number] [address] [place] [phone] Mar, IMMUNIZATIONS No Known Immunizations SOCIAL HISTORY Never Assessed REASON FOR VISIT Med Change Request/Start Tramadol PLAN OF CARE VITAL SIGNS MEDICATIONS Medication Instructions Dosage Frequency Start Date End Date Duration S tatus Tramadol HCl 50 MG Orally every 6 hrs 1 tablet as needed for severe pain 6h Jun, Active RESULTS No Results PROCEDURES No Known [...]
--- OUTSIDE RECORDS SUMMARY | 2019-06-19 05:52 | XMS REPORT ---
Author Author Sydnie MORTON Organization [facility] Address [address] [place] [address] Care Team Providers Care Property Custodian Name Role Phone JOHN MORTON Unavailable PROBLEMS Type Condition ICD9-CM Code PHE42-PJ Code Onset Dates Condition S tatus SNOMED Code Problem Hormone replacement therapy Z79.890 Ac tive 112042191 Problem Abnormal CT scan, head R93.0 Active 244136880 Problem Sensorineural hearing loss (SNHL) of both ears H90 .3 Active 383286648 Problem History of colon polyps Z86.010 Active 222631878 Problem Bruising, spontaneous R23.3 Active 418272000 Problem Generalized anxiety disorder F41.1 A ctive 72300475 Problem Arthralgia of hip, unspecified laterality M25.559 Active 51446671 Problem Hematuria, unspecified type R31.9 Ac tive 82614697 Problem Imbalance R26.89 Active 730728713 Problem Hammer toe of right foot M20.41 Activ e 682223546 Problem Plantar wart of right foot B07.0 Act mitchell [id number] Problem Sciatica of left side M54.32 Active 65854983 Problem Hyperlipidemia, unspecified hyperlipidemia type E7 8.5 Active 43640318 Problem Hypertension I10 Active 2071462 3 Problem Night sweats R61 Active 0457164 0 Problem Fibromyalgia M79.7 Active 2702021 7 Problem Major depressive disorder, recurrent episode, moderate F33.1 Active 020336401 Problem Acute left-sided low back pain with left-sided sciatica M54.42 Active 909574066 Problem Bladder spasm N32.89 Active 944657 006 Problem Gastritis without bleeding, unspecified chronicity, unspecified gastritis type K29.70 Active 169518185 Problem Bipolar 1 disorder, mixed F31.60 Acti ve 43294648 Problem Grief F43.20 Active 32212933 Problem Other chronic pain G89.29 Active 8 1528905 Problem Allergic rhinitis J30.9 Active 61 326968 Problem Hot flashes due to menopause N95.1 A ctive 031123664 Problem Ataxia R27.0 Active 69559351 Problem Hearing loss, unspecified laterality H91.90 Active 87818875 ALLERGIES No Information ENCOUNTERS Encounter Location Date Diagnosis [facility] [address] [facility] [id number] [address] [place] [address] Dec, [facility] [address] [facility] [id number] [address] [place] [address] Dec, [facility] [address] [facility] [id number] [address] [place] [address] Dec, [facility] [address] [facility] [id number] [address] [place] [address] Dec, [facility] [address] [facility] [id number] [address] [place] [address] Nov, [facility] [address] [facility] [id number] [address] [place] [address] Nov, Bipolar 1 disorder, mixed F3 1.60 [facility] [address] [facility] [id number] [address] [place] [address] Nov, Allergic rhinitis J30.9 [facility] [address] [facility] [id number] [address] [place] [address] Nov, Allergic rhinitis J30.9 [facility] [address] [facility] [id number] [address] [place] [address] Nov, [facility] [address] [facility] [id number] [address] [place] [address] Nov, Bipolar 1 disorder, mixed F3 1.60 [facility] [address] [facility] [id number] [address] [place] [address] Nov, Fibromyalgia M79.7 and Aller gic rhinitis J30.9 [facility] [address] [facility] [id number] [address] [place] [address] October, Bipolar 1 disorder, mixed F3 1.60 [facility] [address] [facility] [id number] [address] [place] [address] October, Acute nasopharyngitis J00 [facility] [address] [facility] [id number] [address] [place] [address] October, Bitten or stung by nonvenomo us insect and other nonvenomous arthropods, initial encounter W57.XXXA and Insect bite (nonvenomous) of abdominal wall, initial encounter S30.861A [facility] [address] [facility] [id number] [address] [place] [address] October, Insect bite (nonvenomous) of abdominal wall, initial encounter S30.861A ; Bitten or stung by nonvenomous insect and other nonvenomous arthropods, initial encounter W57.XXXA ; Allergic rhinitis J30.9 and Low back pain M54.5 [facility] [address] [facility] [id number] [address] [place] [address] October, Bipolar 1 disorder, mixed F3 1.60 [facility] [address] [facility] [id number] [address] [place] [address] October, [facility] [address] [place] [id number] [address] [place] [address] October, [facility] [address] [facility] [id number] [address] [place] [address] October, Bipolar 1 disorder, mixed F3 1.60 [facility] [address] [facility] [id number] [address] [place] [address] Sep, Bipolar 1 disorder, mixed F3 1.60 [facility] [address] [facility] [id number] [address] [place] [address] Sep, Other chronic pain G89.29 [facility] [address] [facility] [id number] [address] [place] [address] Sep, [facility] [address] [place] [id number] [address] [place] [address] Sep, Bipolar 1 disorder, mixed F3 1.60 [facility] [address] [facility] [id number] [address] [place] [address] Sep, Allergic rhinitis J30.9 and Sciatica of left side M54.32 [facility] [address] [facility] [id number] [address] [place] [address] Sep, Bipolar 1 disorder, mixed F3 1.60 [facility] [address] [facility] [id number] [address] [place], [place] [address] Sep, Bipolar 1 disorder, mixed F3 1.60 and Generalized anxiety disorder F41.1 [facility] [address] [facility] [id number] [address] [place] [address] Aug, [facility] [address] [facility] [id number] [address] [place] [address] Aug, Bipolar 1 disorder, mixed F3 1.60 [facility] [address] [facility] [id number] [address] [place] [address] Aug, Bipolar 1 disorder, mixed F3 1.60 [facility] [address] [facility] [id number] [address] [place] [address] Aug, [facility] [address] [facility] [id number] [address] [place] [address] Aug, Generalized anxiety disorder F41.1 [facility] [address] [facility] [id number] [address] [place] [address] Aug, Bipolar 1 disorder, mixed F3 1.60 [facility] [address] [facility] [id number] [address] [place] [address] Aug, Plantar wart of right foot B 07.0 [facility] [address] [facility] [id number] [address] [place], [place] [address] Aug, Bipolar 1 disorder, mixed F3 1.60 [facility] [address] [facility] [id number] [address] [place] [address] Jul, Bipolar 1 disorder, mixed F3 1.60 [facility] [address] [facility] [id number] [address] [place] [address] Jul, [facility] [address] [facility] [id number] [address] [place] [address] 14 Jul, 2017 Bipolar 1 disorder, mixed F3 1.60 [facility] [address] [facility] [id number] [address] [place] [address] Jul, Generalized anxiety disorder F41.1 [facility] [address] [facility] [id number] [address] [place] [address] 07 Jul, 2017 Bipolar 1 disorder, mixed F3 1.60 [facility] [address] [facility] [id number] [address] [place] [address] Jul, Acute left-sided low back pa in with left-sided sciatica M54.42 [facility] [address] [place] [id number] [address] [place] [address] Jul, Coccydynia M53.3 [facility] [address] [facility] [facility] [id number] [address] [place] [address] Jun, Bipolar 1 disorder, mixed F3 1.60 [facility] [address] [facility] [facility] [id number] [address] [place] [address] Jun, Acute nasopharyngitis J00 [facility] [address] [facility] [id number] [address] [place] [address] Jun, Bipolar 1 disorder, mixed F3 1.60 [facility] [address] [facility] [id number] [address] [place] [address] Jun, Fibromyalgia M79.7 [facility] [address] [facility] [id number] [address] [place] [address] Jun, Bipolar 1 disorder, mixed F3 1.60 [facility] [address] [facility] [id number] [address] [place] [address] Jun, Fibromyalgia M79.7 and Bipol ar 1 disorder, mixed F31.60 [place] [id number] [address] May, Bipolar 1 disorder, mixed F3 1.60 ; Generalized anxiety disorder F41.1 and Other emt 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 (current) drug therapy Z79.899 [place] [address] [address] May, Bipolar 1 disorder, mixed F3 1.60 [facility] [address] [address] 14 May, 2017 Cough R05 and Body aches R52 [facility] [place] [address] [address] 10 May, 2017 Bladder spasm N32.89 and Acu te cystitis without hematuria N30.00 [place] [address] [address] 07 May, 2017 Bipolar 1 disorder, mixed F3 1.60 [place] [address] [address] 30 Apr, 2017 [place] [address] [address] Apr, Major depressive disorder, r ecurrent episode, moderate F33.1 and Encounter for immunization Z23 [place] [address] [address] Apr, Bipolar 1 disorder, mixed F3 1.60 [place] [address] [address] Apr, Bipolar 1 disorder, mixed F3 1.60 [place] [address] [address] 16 Apr, 2017 Bipolar 1 disorder, mixed F3 1.60 [place] [address] [address] 13 Apr, 2017 Yeast vaginitis B37.3 [place] [address] [place] [address] 09 Apr, 2017 Bipolar 1 disorder, mixed F3 1.60 [facility] [id number] [place], [place] [address] 07 Apr, 2017 Cellulitis L03.[address] for immunization Z23 [facility] [address] [address] Apr, Bipolar 1 disorder, mixed F3 1.60 [facility] [address] [address] Mar, Bipolar 1 disorder, mixed F3 1.60 [facility] [address] Mar, Bipolar 1 disorder, mixed F3 1.60 [facility] [address] [address] Mar, Imbalance R26.89 and Encount er for immunization Z23 [facility] [address] [place] [id number] [address] [place] [address] Mar, Generalized anxiety disorder F41.1 [facility] [address] [address] Mar, Bipolar 1 disorder, mixed F3 1.60 [facility] [address] [address] Mar, Generalized anxiety disorder F41.1 [facility] [address] [place] [id number] [address] [place] [address] Mar, Bipolar 1 disorder, mixed F3 1.60 [facility] [address] [address] Mar, Bipolar 1 disorder, mixed F3 1.60 [facility] [address] [place] [id number] [address] [place] [address] Feb, Bipolar 1 disorder, mixed F3 1.60 [facility] [address] [place] [id number] [address] [place] [address] Feb, Bipolar 1 disorder, mixed F3 1.60 and Generalized anxiety disorder F41.1 [place] [address] [address] Feb, Gastritis without bleeding, unspecified chronicity, unspecified gastritis type K29.70 ; Hammer toe of right foot M20.41 and Other viral warts B07.8 [place] [address] [place] [id number] [address] [place] [address] Feb, Bipolar 1 disorder, mixed F3 1.60 [place] [address] [address] Feb, Bipolar 1 disorder, mixed F3 1.60 [place] [address] [address] 05 Feb, 2017 Bipolar 1 disorder, mixed F3 1.60 [place] [address] [address] Jan, Encounter for screening mamm ogram for breast cancer Z12.31 ; Other viral warts B07.8 and Allergic rhinitis J30.9 [place] [address] [place] [address] Jan, Bipolar 1 disorder, mixed F3 1.60 [place] [address] [place] [address] Jan, Bipolar 1 disorder, mixed F3 1.60 [place] [address] [place] [id number] [address] [place] [address] Jan, [place] [address] [address] Jan, Bipolar 1 disorder, mixed F3 1.60 [place] [address] [place] [id number] [address] [place] [address] Jan, Bipolar 1 disorder, mixed F3 1.60 [place] [address] [place] [id number] [address] [place] [address] Jan, Allergic rhinitis J30.9 ; He maturia R31.9 and Colon cancer screening Z12.11 [facility] [address] [place] [id number] [address] [place] [address] Dec, Bipolar 1 disorder, mixed F3 1.60 [place] [address] [place] [id number] [address] [place] [address] Dec, Bipolar 1 disorder, mixed F3 1.60 ; Generalized anxiety disorder F41.1 and Other emt 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 (current) drug therapy Z79.899 [place] [address] [facility] [id number] [address] [place] [address] Dec, Bipolar 1 disorder, mixed F3 1.60 [place] [address] [place] [id number] [address] [place] [address] Dec, Bipolar 1 disorder, mixed F3 1.60 [place] [address] [place] [id number] [address] [place] [address] Dec, Bipolar 1 disorder, mixed F3 1.60 [place] [address] [place] [id number] [address] [place] [address] Dec, Low back pain M54.5 and Recu rrent urinary tract infection N39.0 [place] [address] [place] [id number] [address] [place] [address] Nov, Bipolar 1 disorder, mixed F3 1.60 [place] [address] [place] [id number] [address] [place] [address] Nov, Bipolar 1 disorder, mixed F3 1.60 [place] [address] [facility] [id number] [address] [place] [address] Nov, Bipolar 1 disorder, mixed F3 1.60 [place] [address] [place] [id number] [address] [place] [address] Nov, Bipolar 1 disorder, mixed F3 1.60 [place] [address] [place] [id number] [address] [place] [address] Nov, [place] [address] [address] Nov, Anesthesia of skin R20.0 ; F requent UTI N39.0 ; Tobacco abuse Z72.0 and Colon cancer screening Z12.11 [place] [address] [address] Nov, Bipolar 1 disorder, mixed F3 1.60 [place] [address] [place] [address] October, Bipolar 1 disorder, mixed F3 1.60 [place] [address] [place] [address] October, Bipolar 1 disorder, mixed F3 1.60 [place] [address] [address] October, Bipolar 1 disorder, mixed F3 1.60 [place] [address] [address] October, Bipolar 1 disorder, mixed F3 1.60 [place] [address] [address] October, Bipolar 1 disorder, mixed F3 1.60 [place] [address] [address] October, Cervicalgia M54.2 and Bipola r 1 disorder, mixed F31.60 [place] [address] [place] [id number] [place] [address] October, Hypertension I10 ; Hyperlipi demia, unspecified hyperlipidemia type E78.5 and Family history of thyroid disease Z83.49 [place] [address] [place] [id number] [address] [place] [address] October, [place] [address] [address] October, Hypertension I10 ; Hyperlipi demia, unspecified hyperlipidemia type E78.5 and Family history of thyroid problem Z83.49 [place] [address] [place] [id number] [address] [place] [address] October, Bipolar 1 disorder, mixed F3 1.60 [place] [address] [place] [id number] [address] [place] [address] Sep, Bipolar 1 disorder, mixed F3 1.60 [place] [address] [place] [id number] [address] [place] [address] Sep, Bipolar 1 disorder, mixed F3 1.60 [place] [address] [address] Sep, Bipolar 1 disorder, mixed F3 1.60 [place] [address] [address] Sep, History of colon polyps Z86. 010 and Hematochezia K92.1 [place] [address] [place] [address] Sep, Major depressive disorder, r ecurrent episode, moderate F33.1 [place] [address] [address] Sep, Bipolar 1 disorder, mixed F3 1.60 [place] [address] [place] [id number] [address] [place] [address] Aug, Hot flashes due to menopause N95.1 [facility] [address] [place] [id number] [address] [place] [address] Aug, Bipolar 1 disorder, mixed F3 1.60 [place] [address] [place] [id number] [address] [place] [address] Aug, [place] [address] [place] [id number] [address] [place] [address] Aug, Bipolar 1 disorder, mixed F3 1.60 [place] [address] [place] [id number] [address] [place] [address] Aug, Bipolar 1 disorder, mixed F3 1.60 [place] [address] [address] Aug, Hot flashes due to menopause N95.1 ; Cervicalgia M54.2 and Ataxia R27.0 [place] [address] [address] Jul, Bipolar 1 disorder, mixed F3 1.60 [place] [address] [address] Jul, Bipolar 1 disorder, mixed F3 1.60 [place] [address] Jul, Bipolar 1 disorder, mixed F3 1.60 [place] [address] [address] Jul, Bipolar 1 disorder, mixed F3 1.60 [place] [address] [address] Jul, Bipolar 1 disorder, mixed F3 1.60 [place] [address] [address] Jul, Cervicalgia M54.2 ; Tremor R 25.1 ; Hearing abnormally acute, unspecified laterality H93.239 ; Alopecia L65.9 ; Encounter for immunization Z23 and Family history of thyroid disease Z83.49 [place] [address] [address] Jul, Bipolar 1 disorder, mixed F3 1.60 [place] [address] [address] Jun, [place] [address] [address] Jun, Hearing disorder, unspecifie d laterality H93.299 [place] [address] [place] [address] Jun, Bipolar 1 disorder, mixed F3 1.60 [facility] [address] [id number] [address] [place] [address] Jun, Bipolar 1 disorder, mixed F3 1.60 [facility] [address] [id number] [address] [place] [address] Jun, Allergic rhinitis J30.9 [facility] [address] [id number] [address] [place] [address] Jun, Bipolar 1 disorder, mixed F3 1.60 [facility] [address] [id number] [address] [place] [address] Jun, Bipolar 1 disorder, mixed F3 1.60 [facility] [address] [facility] [id number] [address] [place] [address] Jun, Allergic rhinitis J30.9 [facility] [address] [facility] [id number] [address] [place] [address] Jun, Allergic rhinitis J30.9 [facility] [address] [facility] [id number] [address] [place] [address] Jun, Bipolar 1 disorder, mixed F3 1.60 [facility] [address] [id number] [address] [place] [address] May, Bipolar 1 disorder, mixed F3 1.60 [facility] [address] [id number] [address] [place] [address] May, Bipolar 1 disorder, mixed F3 1.60 [facility] [address] [id number] [address] [place] [address] May, [facility] [address] [facility] [id number] [address] [place] [address] May, Bipolar 1 disorder, mixed F3 1.60 [facility] [address] [facility] [id number] [address] [place] [address] May, Bipolar 1 disorder, mixed F3 1.60 [facility] [address] [facility] [id number] [address] [place] [address] May, [facility] [address] [facility] [id number] [address] [place] [address] May, [facility] [address] [facility] [id number] [address] [place] [address] May, [facility] [address] [facility] [id number] [address] [place] [address] May, Abdominal pain, unspecified location R10.9 [facility] [address] [facility] [id number] [address] [place] [id number] May, [facility] [address] [facility] [id number] [address] [place] [id number] Apr, Hematuria R31.9 ; Ataxia R27 .0 and Hearing loss, unspecified laterality H91.90 [facility] [address] [facility] [id number] [address] [place] [id number] Apr, Bipolar 1 disorder, mixed F3 1.60 [facility] [address] [facility] [id number] [address] [place] [id number] Apr, Acute effusion of both middl e ears H65.193 [facility] [address] [facility] [id number] [address] [place] [id number] Apr, Hematuria R31.9 and Pyelonep hritis N12 [facility] [address] [facility] [id number] [address] [place] [id number] Apr, [facility] [address] [facility] [id number] [address] [place] [phone] Mar, Bipolar 1 disorder, mixed F3 1.60 [facility] [address] [facility] [id number] [address] [place] [id number] Mar, [facility] [address] [facility] [id number] [address] [place] [id number] Mar, Bipolar 1 disorder, mixed F3 1.60 [place] [address] [place] [id number] [address] [place] [id number] Mar, Bipolar 1 disorder, mixed F3 1.60 [place] [address] Mar, Encounter for immunization Z 23 and Gastritis without bleeding, unspecified chronicity, unspecified gastritis type K29.70 [place] [address] [place] [address] Mar, Bipolar 1 disorder, mixed F3 1.60 and Grief F43.20 [place] [address] Mar, Gastritis without bleeding, unspecified chronicity, unspecified gastritis type K29.70 [place] [address] Mar, Bipolar 1 disorder, mixed F3 1.60 [place] [address] [place] [id number] Mar, Gastritis without bleeding, unspecified chronicity, unspecified gastritis type K29.70 [place] [address] [place] [address] Mar, [place] [address] [place] [id number] Feb, Bipolar 1 disorder, mixed F3 1.60 [place] [address] [place] [id number] Feb, Bipolar 1 disorder, mixed F3 1.60 and Grief F43.20 [place] [address] [place] [id number] Feb, Gastritis without bleeding, unspecified chronicity, unspecified gastritis type K29.70 [place] [address] [place] [id number] [address] [place], [place] [address] Feb, 2016 Bipolar 1 disorder, mixed F3 1.60 [facility] [address] [place] [id number] [address] [place] [id number] Feb, Gastroesophageal reflux dise ase, esophagitis presence not specified K21.9 [facility] [id number] [place] [address] Jan, Bipolar 1 disorder, mixed F3 1.60 [facility] [address] [address] Jan, Bipolar 1 disorder, mixed F3 1.60 and Unsteady gait R26.81 [place] [address] [place] [id number] [address] [place] [address] Jan, Bipolar 1 disorder, mixed F3 1.60 [place] [address] [address] Jan, Bipolar 1 disorder, mixed F3 1.60 and Other emt 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 (current) drug therapy Z79.899 [place] [address] [address] Jan, Bipolar 1 disorder, mixed F3 1.60 [place] [address] [address] Jan, Bipolar 1 disorder, mixed F3 1.60 [place] [address] [address] Jan, Bipolar 1 disorder, mixed F3 1.60 ; Grief F43.20 and Other custodial (current) drug therapy Z79.899 [place] [address] [place] [id number] [address] [place] [address] Jan, Bipolar 1 disorder, mixed F3 1.60 [place] [address] [place] [address] Dec, [place] [address] [address] Dec, Bipolar 1 disorder, mixed F3 1.60 ; Vitamin D deficiency, unspecified E55.9 ; H/O allergic rhinitis Z87.09 ; Other chronic pain G89.29 and Dorsalgia, unspecified M54.9 [facility] [address] [id number] [address] [place] [address] Dec, [facility] [address] [id number] [address] [place] [address] Dec, Bipolar 1 disorder, mixed F3 1.60 [facility] [address] [facility] [id number] [address] [place] [address] Dec, Major depressive disorder, r ecurrent episode, moderate F33.1 [place] [address] [facility] [id number] [address] [place] [address] Dec, Major depressive disorder, r ecurrent episode, moderate F33.1 [place] [address] [facility] [id number] [address] [place] [address] Nov, [facility] [address] [facility] [id number] [address] [place] [address] Nov, Bipolar 1 disorder, mixed F3 1.60 [facility] [address] [facility] [id number] [address] [place] [address] Nov, Major depressive disorder, r ecurrent episode, moderate F33.1 [place] [address] [facility] [id number] [address] [place] [address] Nov, Cervicalgia M54.2 ; Arthralg ia of hip, unspecified laterality M25.559 ; Allergic rhinitis J30.9 and Hormone replacement therapy Z79.890 [facility] [address] [facility] [id number] [address] [place] [address] Nov, Other seasonal allergic rhin itis J30.2 [facility] [address] [facility] [id number] [address] [place] [address] October, Major depressive disorder, r ecurrent episode, moderate F33.1 [facility] [address] [facility] [id number] [address] [place] [address] October, Major depressive disorder, r ecurrent episode, moderate F33.1 and Arthralgia of hip, unspecified laterality M25.559 [place] [address] [facility] [id number] [address] [place], [place] [address] October, Grief F43.20 ; Hypertension I10 ; Hyperlipidemia, unspecified hyperlipidemia type E78.5 ; Other chronic pain G89.29 and Allergic rhinitis, unspecified allergic rhinitis type J30.9 [place] [address] [facility] [id number] [address] [place] [address] October, Major depressive disorder, r ecurrent episode, moderate F33.1 [place] [address] [facility] [id number] [address] [place] [address] Sep, Major depressive disorder, r ecurrent episode, moderate F33.1 [place] [address] [place] [id number] [address] [place] [address] Sep, [place] [address] [place] [id number] [address] [place] [address] Sep, Major depressive disorder, r ecurrent episode, moderate F33.1 [place] [address] [place] [id number] [address] [place] [address] Sep, Grief F43.20 [place] [address] [facility] [id number] [address] [place] [address] Aug, Major depressive disorder, r ecurrent episode, moderate F33.1 [place] [address] [facility] [id number] [address] [place] [address] Aug, Bipolar 1 disorder, mixed F3 1.60 [place] [address] [facility] [id number] [address] [place] [address] Aug, Allergic rhinitis J30.9 ; Ce rvicalgia M54.2 and Low back pain M54.5 [place] [address] [facility] [id number] [address] [place] [address] Aug, Major depressive disorder, r ecurrent episode, moderate F33.1 [facility] [address] [id number] [address] [place] [address] Aug, Sinusitis J32.9 and Tobacco 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 [facility] [address] [id number] [address] [place] [address] Aug, [facility] [address] [facility] [id number] [address] [place] [address] Aug, Depressive disorder, not els ewhere classified F32.9 ; Hormone replacement therapy Z79.[address] scan, head R93.0 [facility] [address] [id number] [address] [place] [address] Aug, Major depressive disorder, r ecurrent episode, moderate F33.1 [facility] [address] [facility] [id number] [address] [place] [address] Jul, Major depressive disorder, r ecurrent episode, moderate F33.1 [facility] [address] [facility] [id number] [address] [place] [address] Jul, Abdominal pain R10.9 and Hyp ertension I10 [facility] [address] [id number] [address] [place] [address] Jul, [facility] [address] [facility] [id number] [address] [place] [address] Jul, Major depressive disorder, r ecurrent episode, moderate F33.1 [facility] [address] [facility] [id number] [address] [place] [address] Jul, [facility] [address] [facility] [id number] [address] [place] [address] Jul, [facility] [address] [facility] [id number] [address] [place] [address] Jun, [facility] [address] [facility] [id number] [address] [place] [address] Jun, Depressive disorder, not els ewhere classified F32.9 [place] [id number] [id number] [address] [place] [address] Jun, [facility] [address] [id number] [address] [place] [address] Jun, [facility] [address] [id number] [address] [place] [address] Jun, Arthralgia of hip, unspecifi ed laterality M25.559 ; Bruising, spontaneous R23.3 and Night sweats R61 [facility] [address] [id number] [address] [place] [address] Jun, [facility] [address] [id number] [address] [place] [address] Jun, [facility] [address] [facility] [id number] [address] [place] [address] May, [facility] [address] [id number] [address] [place] [address] May, Myalgia M79.1 and Screening, lipid Z13.220 [facility] [address] [id number] [address] [place] [address] Apr, Status post cervical spinal fusion Z98.1 ; Fibromyalgia M79.7 and Unsteady gait R26.81 [facility] [address] [id number] [address] [place] [address] Nov, [facility] [address] [id number] [address] [place] [address] Nov, [facility] [address] [id number] [address] [place] [address] October, [facility] [address] [id number] [address] [place] [address] October, [facility] [address] [facility] [id number] [address] [place] [address] October, [facility] [address] [id number] [address] [place] [address] October, [facility] [address] [id number] [address] [place] [address] October, [facility] [address] [id number] [address] [place] [address] October, Dysuria 788.1 ; Nausea 787.0 2 and Urinary tract infection 599.0 [facility] [address] [id number] [address] [place] [address] Sep, [facility] [address] [id number] [address] [place] [address] Sep, [facility] [address] [id number] [address] [place] [address] Aug, [facility] [address] [id number] [address] [place] [address] Aug, [facility] [address] [id number] [address] [place] [address] Aug, [facility] [address] [id number] [address] [place] [address] Aug, [facility] [address] [id number] [address] [place] [address] Aug, [facility] [address] [id number] [address] [place] [address] Aug, [facility] [address] [id number] [address] [place] [address] Aug, [facility] [address] [id number] [address] [place] [address] Aug, [facility] [address] [id number] [address] [place] [address] Aug, [facility] [address] [id number] [address] [place] [address] 18 Aug, 2014 [facility] [address] [id number] [address] [place] [address] [place] [address] 18 Aug, 2014 [facility] [address] [id number] [address] [place] [address], [place] [address] 13 Aug, 2014 [facility] [address] [id number] [address] [place] [address], [place] [address] 13 Aug, 2014 [facility] [address] [id number] [address] [place] [address], [place] [address] Aug, [facility] [address] [id number] [address] [place] [address], [place] [address] Aug, [facility] [address] [id number] [address] [place] [address], [place] [address] Aug, [facility] [address] [id number] [address] [place] [address], [place] [address] Aug, [facility] [address] [id number] [address] [place] [address], [place] [address] Aug, [facility] [address] [id number] [address] [place] [address], [place] [address] 05 Aug, 2014 [facility] [address] [id number] [address] [place] [address], [place] [address] Aug, [facility] [address] [id number] [address] [place] [address], [place] [address] Aug, [facility] [address] [id number] [address] [place] [address], [place] [address] Aug, [facility] [address] [id number] [address] [place] [address], [place] [address] Jul, [facility] [address] [id number] [address] [place] [address], [place] [address] Jul, [facility] [address] [id number] [address] [place] [address], [place] [address] Jul, [facility] [address] [id number] [address] [place] [address], [place] [address] Jul, [facility] [address] [id number] [address] [place] [address], [place] [address] Jul, [facility] [address] [id number] [address] [place] [address], [place] [address] Jul, [facility] [address] [id number] [address] [place] [address], [place] [address] Jul, [facility] [address] [id number] [address] [place] [address], [place] [address] Jul, [facility] [address] [id number] [address] [place] [address], [place] [address] Jul, [facility] [address] [id number] [address] [place] [address], [place] [address] Jul, [facility] [address] [id number] [address] [place] [address], [place] [address] Jul, [facility] [address] [id number] [address] [place] [address], [place] [address] Jul, [facility] [address] [id number] [address] [place] [address], [place] [address] Jul, [facility] [address] [id number] [address] [place] [address], [place] [address] Jul, [facility] [address] [id number] [address] [place] [address], [place] [address] Jun, [facility] [address] [id number] [address] [place] [address], [place] [address] Jun, [facility] [address] [id number] [address] [place] [address], [place] [address] Jun, [facility] [address] [id number] [address] [place] [address], [place] [address] Jun, [facility] [address] [id number] [address] [place] [address], [place] [address] Jun, [facility] [address] [id number] [address] [place] [address], [place] [address] Jun, [facility] [address] [id number] [address] [place] [address], [place] [address] May, [facility] [address] [id number] [address] [place] [address], [place] [address] May, [facility] [address] [id number] [address] [place] [address], [place] [address] May, [facility] [address] [id number] [address] [place] [address], [place] [address] May, [facility] [address] [id number] [address] [place] [address], [place] [address] May, [facility] [address] [id number] [address] [place] [address], [place] [address] May, [facility] [address] [id number] [address] [place] [address], [place] [address] Apr, [facility] [address] [id number] [address] [place] [address], [place] [address] Apr, [facility] [address] [id number] [address] [place] [address], [place] [address] Apr, [facility] [address] [id number] [address] [place] [address], [place] [address] Apr, [facility] [address] [id number] [address] [place] [address], [place] [address] Apr, [facility] [address] [id number] [address] [place] [address], [place] [address] Apr, [facility] [address] [id number] [address] [place] [address], [place] [address] Mar, [facility] [address] [id number] [address] [place] [address], [place] [address] Mar, [facility] [address] [id number] [address] [place] [address], [place] [address] Mar, [facility] [address] [id number] [address] [place] [address], [place] [address] Mar, 2013 [facility] [address] [id number] [address] [place] [address], [place] [address] Mar, 2013 [facility] [address] [id number] [address] [place] [address], [place] [address] Mar, 2013 [facility] [address] [id number] [address] [place] [address], [place] [address] Mar, 2013 [facility] [address] [id number] [address] [place] [address], [place] [address] Mar, 2013 [facility] [address] [id number] [address] [place] [address], [place] [address] Mar, 2013 [facility] [address] [id number] [address] [place] [address], [place] [address] Mar, 2013 [facility] [address] [id number] [address] [place] [address], [place] [address] Mar, 2013 [facility] [address] [id number] [address] [place] [address], [place] [address] Mar, [facility] [address] [id number] [address] [place] [address] 30 Feb, 2013 [facility] [address] [id number] [address] [place] [address] 29 Feb, 2013 [facility] [address] [id number] [address] [place] [address] 29 Sep, 2013 [facility] [address] [id number] [address] [place] [address], [place] [address] 23 Feb, 2013 [facility] [address] [id number] [address] [place] [address], [place] [address] 23 Feb, 2013 [facility] [address] [id number] [address] [place] [address] 08 Feb, 2013 [facility] [address] [id number] [address] [place] [address] Feb, [facility] [address] [id number] [address] [place] [address], [place] [address] Jan, [facility] [address] [id number] [address] [place] [address], [place] [address] Jan, [facility] [address] [id number] [address] [place] [address], [place] [address] Jan, [facility] [address] [id number] [address] [place] [address], [place] [address] Dec, [facility] [address] [id number] [address] [place] [address], [place] [address] Dec, [facility] [address] [id number] [address] [place] [address], [place] [address] Dec, [facility] [address] [id number] [address] [place] [address], [place] [address] Dec, [facility] [address] [id number] [address] [place] [address], [place] [address] Sep, [facility] [address] [id number] [address] [place] [address], [place] [address] Sep, [facility] [address] [id number] [address] [place] [address], [place] [address] Sep, [facility] [address] [id number] [address] [place] [address], [place] [address] Sep, [facility] [address] [id number] [address] [place] [address], [place] [address] Sep, [facility] [address] [id number] [address] [place] [address], [place] [address] Sep, [facility] [address] [id number] [address] [place] [address], [place] [address] Sep, [facility] [address] [id number] [address] [place] [address], [place] [address] Sep, [facility] [address] [id number] [address] [place] [address], [place] [address] 10 Aug, 2013 [facility] [address] [id number] [address] [place] [address], [place] [address] 10 Aug, 2013 [facility] [address] [id number] [address] [place] [address], [place] [address] May, [facility] [address] [id number] [address] [place] [address], [place] [address] May, [facility] [address] [id number] [address] [place] [address], [place] [address] Apr, [facility] [address] [id number] [address] [place] [address], [place] [address] Apr, [facility] [address] [id number] [address] [place] [address], [place] [address] Apr, [facility] [address] [id number] [address] [place] [address], [place] [address] Apr, [facility] [address] [id number] [address] [place] [address], [place] [address] Apr, [facility] [address] [id number] [address] [place] [address], [place] [address] Apr, [facility] [address] [id number] [address] [place] [address], [place] [address] 18 May, 2012 [facility] [address] [id number] [address] [place] [address], [place] [address] 18 May, 2012 [facility] [address] [id number] [address] [place] [address], [place] [address] 15 May, 2012 [facility] [address] [id number] [address] [place] [address], [place] [address] 15 May, 2012 [facility] [address] [id number] [address] [place] [address], [place] [address] 13 May, 2012 [facility] [address] [id number] [address] [place] [address], [place] [address] May, [facility] [address] [id number] [address] [place] [address], [place] [address] 13 Apr, 2012 [facility] [address] [id number] [address] [place] [address], [place] [address] Apr, [facility] [address] [id number] [address] [place] [address], [place] [address] 08 Apr, 2012 [facility] [address] [id number] [address] [place] [address], [place] [address] Apr, [facility] [address] [id number] [address] [place] [address], [place] [address] Apr, [facility] [address] [id number] [address] [place] [address], [place] [address] Apr, [facility] [address] [id number] [address] [place] [address], [place] [address] Apr, [facility] [address] [id number] [address] [place] [address], [place] [address] Apr, [facility] [address] [id number] [address] [place] [address], [place] [address] Apr, [facility] [address] [id number] [address] [place] [address], [place] [address] Apr, [facility] [address] [id number] [address] [place] [id number] Mar, [facility] [address] [id number] [address] [place] [address] Mar, [facility] [address] [id number] [address] [place] [address], [place] [address] Mar, [facility] [address] [id number] [address] [place] [address], [place] [address] Mar, [facility] [address] [id number] [address] [place] [address], [place] [address] Mar, [facility] [address] [id number] [address] [place] [address], [place] [address] Mar, [facility] [address] [id number] [address] [place] [address], [place] [address] Mar, [facility] [address] [id number] [address] [place] [address], [place] [address] Mar, [facility] [address] [id number] [address] [place] [address], [place] [address] Mar, [facility] [address] [id number] [address] [place] [address], [place] [address] 25 Feb, 2012 [facility] [address] [id number] [address] [place] [address], [place] [address] 16 Feb, 2012 [facility] [address] [id number] [address] [place] [address], [place] [address] Feb, [facility] [address] [id number] [address] [place] [address], [place] [address] Jan, [facility] [address] [id number] [address] [place] [address], [place] [address] Jan, [facility] [address] [id number] [address] [place] [address], [place] [address] Jan, [facility] [address] [id number] [address] [place] [address], [place] [address] 18 Jan, 2012 [facility] [address] [id number] [address] [place] [address], [place] [address] Jan, [facility] [address] [id number] [address] [place] [address], [place] [address] 17 Jan, 2012 [facility] [address] [id number] [address] [place] [address], [place] [address] 16 Jan, 2012 [facility] [address] [id number] [address] [place] [address], [place] [address] 15 Jan, 2012 [facility] [address] [id number] [address] [place] [address], [place] [address] 15 Jan, 2012 [facility] [address] [id number] [address] [place] [address], [place] [address] Jan, [facility] [address] [id number] [address] [place] [address], [place] [address] Dec, [facility] [address] [id number] [address] [place] [address], [place] [address] Dec, [facility] [address] [id number] [place] [address], [place] [address] Dec, [facility] [address] [id number] [address] [place] [address], [place] [address] Dec, [facility] [address] [id number] [address] [place] [address], [place] [address] Nov, [facility] [address] [id number] [address] [place] [address], [place] [address] Nov, [facility] [address] [id number] [address] [place] [address], [place] [address] Nov, [facility] [address] [id number] [address] [place] [address], [place] [address] October, [facility] [address] [id number] [address] [place] [address], [place] [address] October, [facility] [address] [id number] [address] [place] [address], [place] [address] October, [facility] [address] [id number] [address] [place] [address], [place] [address] October, [facility] [address] [id number] [address] [place] [address], [place] [address] October, [facility] [address] [id number] [address] [place] [address], [place] [address] October, [facility] [address] [id number] [address] [place] [address], [place] [address] Aug, [facility] [address] [id number] [address] [address] 10 Mar, 2011 [facility] [address] [facility] [id number] [address] [place] [id number] 16 Nov, 2010 [facility] [address] [facility] [id number] [address] [place] [id number] May, [facility] [address] [facility] [id number] [address] [place] [id number] May, [facility] [address] [facility] [id number] [address] [place] [id number] Apr, [facility] [address] [facility] [id number] [address] [place] [id number] Mar, [facility] [address] [facility] [id number] [address] [place] [phone] Mar, IMMUNIZATIONS No Known Immunizations SOCIAL HISTORY Never Assessed REASON FOR VISIT f/u PLAN OF CARE Activity Details Follow Up Next available Reason: F/U VITAL SIGNS MEDICATIONS Unknown Medications RESULTS No Results PROCEDURES Procedure Date Ordered Result Body Site [facility] VISIT MENTAL HEALTH ESTAB PT Jul 12, 2017 Psychotherapy, patient &/family, 45 minutes, established patient Jul 12, 2017 INSTRUCTIONS MEDICATIONS ADMINISTERED No Known [...]
--- OUTSIDE RECORDS SUMMARY | 2019-06-19 05:52 | XMS REPORT ---
Author Author Sydnie MORTON Organization [facility] Address [address] [place] [address] Care Team Providers Care Ab Initio Etl Developer Name Role Phone JOHN MORTON Unavailable PROBLEMS Type Condition ICD9-CM Code [id number] Code Onset Dates Condition S tatus SNOMED Code Problem Hormone replacement therapy Z79.890 Ac tive 858448575 Problem Abnormal CT scan, head R93.0 Active 379476112 Problem Hot flashes due to menopause N95.1 A ctive 966833875 Problem Sensorineural hearing loss (SNHL) of both ears H90 .3 Active 661110427 Problem History of colon polyps Z86.010 Active 981854287 Problem Bruising, spontaneous R23.3 Active 626657606 Problem Generalized anxiety disorder F41.1 A ctive 88930353 Problem Hammer toe of right foot M20.41 Activ e 095001186 Problem Hematuria, unspecified type R31.9 Ac tive 26302915 Problem Plantar wart of right foot B07.0 Act mitchell [id number] Problem Acute left-sided low back pain with left-sided sciatica M54.42 Active 487640836 Problem Hypertension I10 Active 1009214 3 Problem Arthralgia of hip, unspecified laterality M25.559 Active 27856156 Problem Night sweats R61 Active 8485439 0 Problem Major depressive disorder, recurrent episode, moderate F33.1 Active 425517421 Problem Imbalance R26.89 Active 141552857 Problem Bladder spasm N32.89 Active 397968 006 Problem Fibromyalgia M79.7 Active 3539002 7 Problem Other chronic pain G89.29 Active 8 3393923 Problem Gastritis without bleeding, unspecified chronicity, unspecified gastritis type K29.70 Active 589135258 Problem Hyperlipidemia, unspecified hyperlipidemia type E7 8.5 Active 13328669 Problem Grief F43.20 Active 84697273 Problem Ataxia R27.0 Active 17895036 Problem Allergic rhinitis J30.9 Active 61 204047 Problem Bipolar 1 disorder, mixed F31.60 Acti ve 63893420 Problem Hearing loss, unspecified laterality H91.90 Active 33855141 ALLERGIES No Information ENCOUNTERS Encounter Location Date Diagnosis [facility] [address] [facility] [id number] [address] [place] [address] Sep, [facility] [address] [place] [id number] [address] [place] [address] Sep, [facility] [address] [place] [id number] [address] [place] [address] Sep, [facility] [address] [address] Sep, [facility] [address] [place] [id number] [place] [address] Aug, [facility] [address] [address] Aug, Bipolar 1 disorder, mixed F3 1.60 [facility] [address] [place] [id number] [address] [place] [address] Aug, [facility] [address] [address] Aug, Generalized anxiety disorder F41.1 [facility] [address] [place] [id number] [address] [place] [address] Aug, Bipolar 1 disorder, mixed F3 1.60 [facility] [address] [place] [id number] [address] [place] [address] Aug, Plantar wart of right foot B 07.0 [facility] [address] [place] [id number] [address] [place] [address] Aug, Bipolar 1 disorder, mixed F3 1.60 [facility] [address] [place] [id number] [address] [place] [address] Jul, Bipolar 1 disorder, mixed F3 1.60 [facility] [address] [place] [address] [place] [address] Jul, [facility] [address] [facility] [id number] [address] [place] [address] 14 Jul, 2017 Bipolar 1 disorder, mixed F3 1.60 [facility] [address] [place] [id number] [address] [place] [address] Jul, Generalized anxiety disorder F41.1 [facility] [address] [place] [id number] [address] [place] [address] Jul, Bipolar 1 disorder, mixed F3 1.60 [place] [address] [place] [address] Jul, Acute left-sided low back pa in with left-sided sciatica M54.42 [place] [address] [place] [id number] [address] [place] [address] Jul, Coccydynia M53.3 [facility] [address] [place] [id number] [address] [place] [address] Jun, Bipolar 1 disorder, mixed F3 1.60 [facility] [address] [place] [id number] [address] [place] [address] Jun, Acute nasopharyngitis J00 [facility] [address] [place] [id number] [address] [place] [address] Jun, Bipolar 1 disorder, mixed F3 1.60 [facility] [address] [place] [id number] [address] [place] [address] Jun, Fibromyalgia M79.7 [facility] [address] [facility] [id number] [address] [place] [address] Jun, Bipolar 1 disorder, mixed F3 1.60 [facility] [address] [place] [id number] [address] [place] [address] Jun, Fibromyalgia M79.7 and Bipol ar 1 disorder, mixed F31.60 [facility] [address] [address] 27 May, 2017 Bipolar 1 disorder, mixed F3 1.60 ; Generalized anxiety disorder F41.1 and Other fdc (current) drug therapy Z79.899 [place] [id number] [address] May, Bipolar 1 disorder, mixed F3 1.60 [facility] [address] [address] 14 May, 2017 Cough R05 and Body aches R52 [facility] [address] [address] 10 May, 2017 Bladder spasm N32.89 and Acu te cystitis without hematuria N30.00 [place] [address] [address] 07 May, 2017 Bipolar 1 disorder, mixed F3 1.60 [place] [address] [address] 30 Apr, 2017 [place] [address] [address] Apr, Major depressive disorder, r ecurrent episode, moderate F33.1 and Encounter for immunization Z23 [place] [address] [address] Apr, Bipolar 1 disorder, mixed F3 1.60 [place] [address] [address] Apr, Bipolar 1 disorder, mixed F3 1.60 [place] [address] [address] 16 Apr, 2017 Bipolar 1 disorder, mixed F3 1.60 [place] [address] [address] 13 Apr, 2017 Yeast vaginitis B37.3 [place] [address] [address] Apr, Bipolar 1 disorder, mixed F3 1.60 [facility] [address] [facility] [id number] [address] [place] [address] Apr, Encounter for immunization Z 23 and Cellulitis L03.90 [facility] [address] [facility] [id number] [address] [place] [address] Apr, Bipolar 1 disorder, mixed F3 1.60 [facility] [address] [place] [id number] [address] [place] [address] Mar, Bipolar 1 disorder, mixed F3 1.60 [facility] [address] [place] [id number] [address] [place] [address] Mar, Bipolar 1 disorder, mixed F3 1.60 [facility] [address] [place] [id number] [address] [place] [address] Mar, Imbalance R26.89 and Encount er for immunization Z23 [facility] [address] [place] [id number] [address] [place] [address] Mar, Generalized anxiety disorder F41.1 [facility] [address] [place] [id number] [address] [place] [address] Mar, Bipolar 1 disorder, mixed F3 1.60 [facility] [address] [place] [id number] [address] [place] [address] Mar, Generalized anxiety disorder F41.1 [facility] [address] [place] [id number] [address] [place] [address] Mar, Bipolar 1 disorder, mixed F3 1.60 [facility] [address] [place] [id number] [address] [place] [address] Mar, Bipolar 1 disorder, mixed F3 1.60 [facility] [address] [place] [id number] [address] [place] [address] Feb, Bipolar 1 disorder, mixed F3 1.60 [facility] [address] [place] [id number] [address] [place] [address] Feb, Bipolar 1 disorder, mixed F3 1.60 and Generalized anxiety disorder F41.1 [facility] [address] [place] [id number] [address] [place] [address] Feb, Gastritis without bleeding, unspecified chronicity, unspecified gastritis type K29.70 ; Hammer toe of right foot M20.41 and Other viral warts B07.8 [place] [address] [place] [id number] [address] [place] [address] Feb, Bipolar 1 disorder, mixed F3 1.60 [place] [address] [place] [id number] [address] [place] [address] Feb, Bipolar 1 disorder, mixed F3 1.60 [place] [address] [place] [id number] [place] [address] Feb, Bipolar 1 disorder, mixed F3 1.60 [place] [address] [address] Jan, Encounter for screening mamm ogram for breast cancer Z12.31 ; Other viral warts B07.8 and Allergic rhinitis J30.9 [place] [address] [place] [id number] [place] [address] Jan, Bipolar 1 disorder, mixed F3 1.60 [place] [address] [place] [id number] [address] [place] [address] Jan, Bipolar 1 disorder, mixed F3 1.60 [place] [address] [place] [id number] [address] [place] [address] Jan, [place] [address] [place] [id number] [address] [place] [address] Jan, Bipolar 1 disorder, mixed F3 1.60 [place] [address] [place] [id number] [address] [place] [address] Jan, Bipolar 1 disorder, mixed F3 1.60 [place] [address] [place] [id number] [address] [place] [address] 02 Aug, 2017 Allergic rhinitis J30.9 ; He maturia R31.9 and Colon cancer screening Z12.11 [facility] [address] [facility] [id number] [address] [place] [address] Dec, Bipolar 1 disorder, mixed F3 1.60 [facility] [address] [facility] [id number] [address] [place] [address] Dec, Bipolar 1 disorder, mixed F3 1.60 ; Generalized anxiety disorder F41.1 and 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 [facility] [address] [facility] [id number] [address] [place] [address] Dec, Bipolar 1 disorder, mixed F3 1.60 [place] [address] [place] [id number] [place] [address] Dec, Bipolar 1 disorder, mixed F3 1.60 [place] [address] [address] Dec, Bipolar 1 disorder, mixed F3 1.60 [place] [address] [place] [id number] [place] [address] Dec, Low back pain M54.5 and Recu rrent urinary tract infection N39.0 [facility] [address] [place] [id number] [address] [place] [address] Nov, Bipolar 1 disorder, mixed F3 1.60 [place] [address] [place] [id number] [place] [address] Nov, Bipolar 1 disorder, mixed F3 1.60 [facility] [address] [place] [id number] [address] [place] [address] Nov, Bipolar 1 disorder, mixed F3 1.60 [place] [address] [place] [id number] [place] [address] Nov, Bipolar 1 disorder, mixed F3 1.60 [facility] [address] [place] [id number] [address] [place] [address] Nov, [place] [address] [place] [id number] [place] [address] 08 Nov, 2016 Anesthesia of skin R20.0 ; F requent UTI N39.0 ; Tobacco abuse Z72.0 and Colon cancer screening Z12.11 [place] [address] [place] [id number] [address] [place] [address] Nov, Bipolar 1 disorder, mixed F3 1.60 [place] [address] [address] October, Bipolar 1 disorder, mixed F3 1.60 [place] [address] October, Bipolar 1 disorder, mixed F3 1.60 [place] [address] [address] October, Bipolar 1 disorder, mixed F3 1.60 [place] [address] [address] October, Bipolar 1 disorder, mixed F3 1.60 [place] [address] [address] October, Bipolar 1 disorder, mixed F3 1.60 [place] [address] [address] October, Cervicalgia M54.2 and Bipola r 1 disorder, mixed F31.60 [place] [address] [place] [id number] [place] [address] October, Hypertension I10 ; Hyperlipi demia, unspecified hyperlipidemia type E78.5 and Family history of thyroid disease Z83.49 [place] [address] [address] October, [place] [address] [place] [id number] [place] [address] October, Hypertension I10 ; Hyperlipi demia, unspecified hyperlipidemia type E78.5 and Family history of thyroid problem Z83.49 [facility] [address] [facility] [id number] [address] [place] [address] October, Bipolar 1 disorder, mixed F3 1.60 [facility] [address] [facility] [id number] [address] [place], [place] [address] Sep, Bipolar 1 disorder, mixed F3 1.60 [facility] [address] [place] [id number] [address] [place] [address] Sep, Bipolar 1 disorder, mixed F3 1.60 [place] [address] [place] [id number] [address] [place] [address] Sep, Bipolar 1 disorder, mixed F3 1.60 [place] [address] [place] [id number] [place] [address] Sep, History of colon polyps Z86. 010 and Hematochezia K92.1 [place] [address] [place] [id number] [place] [address] Sep, Major depressive disorder, r ecurrent episode, moderate F33.1 [place] [address] [facility] [id number] [address] [place] [address] Sep, Bipolar 1 disorder, mixed F3 1.60 [place] [address] [place] [id number] [address] [place] [address] Aug, Hot flashes due to menopause N95.1 [facility] [address] [facility] [id number] [address] [place] [address] Aug, Bipolar 1 disorder, mixed F3 1.60 [facility] [address] [facility] [id number] [address] [place] [address] Aug, [place] [address] [place] [id number] [address] [place] [address] Aug, Bipolar 1 disorder, mixed F3 1.60 [facility] [address] [place] [id number] [address] [place] [address] Aug, Bipolar 1 disorder, mixed F3 1.60 [place] [address] [address] Aug, Hot flashes due to menopause N95.1 ; Cervicalgia M54.2 and Ataxia R27.0 [place] [address] [address] Jul, Bipolar 1 disorder, mixed F3 1.60 [place] [address] Jul, Bipolar 1 disorder, mixed F3 1.60 [place] [address] Jul, Bipolar 1 disorder, mixed F3 1.60 [place] [address] Jul, Bipolar 1 disorder, mixed F3 1.60 [place] [address] [address] Jul, Bipolar 1 disorder, mixed F3 1.60 [place] [address] [place] [address] Jul, Cervicalgia M54.2 ; Tremor R 25.1 ; Hearing abnormally acute, unspecified laterality H93.239 ; Alopecia L65.9 ; Encounter for immunization Z23 and Family history of thyroid disease Z83.49 [place] [address] [address] Jul, Bipolar 1 disorder, mixed F3 1.60 [place] [address] [address] Jun, [place] [address] Jun, Hearing disorder, unspecifie d laterality H93.299 [place] [address] [address] Jun, Bipolar 1 disorder, mixed F3 1.60 [facility] [address] [id number] [address] [place] [address] Jun, Bipolar 1 disorder, mixed F3 1.60 [facility] [address] [id number] [address] [place] [address] Jun, Allergic rhinitis J30.9 [facility] [address] [id number] [address] [place] [address] Jun, Bipolar 1 disorder, mixed F3 1.60 [facility] [address] [id number] [address] [place] [address] Jun, Bipolar 1 disorder, mixed F3 1.60 [facility] [address] [id number] [address] [place] [address] Jun, Allergic rhinitis J30.9 [facility] [address] [id number] [address] [place] [address] Jun, Allergic rhinitis J30.9 [facility] [address] [id number] [address] [place] [address] Jun, Bipolar 1 disorder, mixed F3 1.60 [facility] [address] [id number] [address] [place] [address] May, Bipolar 1 disorder, mixed F3 1.60 [facility] [address] [id number] [address] [place] [address] May, Bipolar 1 disorder, mixed F3 1.60 [facility] [address] [id number] [address] [place] [address] May, [facility] [address] [id number] [address] [place] [address] May, Bipolar 1 disorder, mixed F3 1.60 [facility] [address] [facility] [id number] [address] [place] [address] 06 May, 2016 Bipolar 1 disorder, mixed F3 1.60 [facility] [address] [facility] [id number] [address] [place] [address] May, [facility] [address] [facility] [id number] [address] [place] [address] May, [facility] [address] [facility] [id number] [address] [place] [address] May, [facility] [address] [facility] [id number] [address] [place] [address] May, Abdominal pain, unspecified location R10.9 [facility] [address] [facility] [id number] [address] [place] [address] May, [facility] [address] [facility] [id number] [address] [place] [address] Apr, Hematuria R31.9 ; Ataxia R27 .0 and Hearing loss, unspecified laterality H91.90 [facility] [address] [facility] [id number] [address] [place] [address] Apr, Bipolar 1 disorder, mixed F3 1.60 [facility] [address] [facility] [id number] [address] [place] [address] Apr, Acute effusion of both middl e ears H65.193 [facility] [address] [facility] [id number] [address] [place] [address] Apr, Hematuria R31.9 and Pyelonep hritis N12 [facility] [address] [facility] [id number] [address] [place] [address] Apr, [facility] [address] [facility] [id number] [address] [place] [address] Mar, Bipolar 1 disorder, mixed F3 1.60 [facility] [address] [facility] [id number] [address] [place] [address] Mar, [facility] [address] [facility] [id number] [address] [place] [address] Mar, Bipolar 1 disorder, mixed F3 1.60 [facility] [address] [facility] [id number] [address] [place] [address] Mar, Bipolar 1 disorder, mixed F3 1.60 [place] [address] [facility] [id number] [address] [place] [id number] Mar, Encounter for immunization Z 23 and Gastritis without bleeding, unspecified chronicity, unspecified gastritis type K29.70 [place] [address] [facility] [id number] [address] [place] [address] Mar, Bipolar 1 disorder, mixed F3 1.60 and Grief F43.20 [place] [address] [facility] [id number] [address] [place], [place] [address] Mar, Gastritis without bleeding, unspecified chronicity, unspecified gastritis type K29.70 [place] [address] [place] [id number] [address] [place] [address] Mar, Bipolar 1 disorder, mixed F3 1.60 [place] [address] [place] [id number] [address] [place] [address] Mar, Gastritis without bleeding, unspecified chronicity, unspecified gastritis type K29.70 [place] [address] [place] [id number] [address] [place] [address] Mar, [place] [address] [place] [id number] [place] [address] 27 Feb, 2016 Bipolar 1 disorder, mixed F3 1.60 [place] [address] [place] [id number] [address] [place] [address] 22 Feb, 2016 Bipolar 1 disorder, mixed F3 1.60 and Grief F43.20 [facility] [address] [facility] [id number] [address] [place] [address] 22 Feb, 2016 Gastritis without bleeding, unspecified chronicity, unspecified gastritis type K29.70 [facility] [address] [facility] [id number] [address] [place] [address] 14 Feb, 2016 Bipolar 1 disorder, mixed F3 1.60 [facility] [address] [facility] [id number] [address] [place] [address] Feb, Gastroesophageal reflux dise ase, esophagitis presence not specified K21.9 [place] [address] Jan, Bipolar 1 disorder, mixed F3 1.60 [place] [address] Jan, Bipolar 1 disorder, mixed F3 1.60 and Unsteady gait R26.81 [place] [address] [place] [address] Jan, Bipolar 1 disorder, mixed F3 1.60 [place] [address] Jan, Bipolar 1 disorder, mixed F3 1.60 and 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 [place] [address] [place] [address] Jan, Bipolar 1 disorder, mixed F3 1.60 [place] [address] [address] Jan, Bipolar 1 disorder, mixed F3 1.60 [place] [address] [place] [id number] Jan, Bipolar 1 disorder, mixed F3 1.60 ; Grief F43.20 and 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 [place] [address] [place] [address] Jan, Bipolar 1 disorder, mixed F3 1.60 [place] [address] [id number] Dec, [place] [address] [place] [id number] Dec, Bipolar 1 disorder, mixed F3 1.60 ; Vitamin D deficiency, unspecified E55.9 ; H/O allergic rhinitis Z87.09 ; Other chronic pain G89.29 and Dorsalgia, unspecified M54.9 [facility] [address] [id number] [address] [place] [id number] Dec, [facility] [address] [id number] [address] [place] [id number] Dec, Bipolar 1 disorder, mixed F3 1.60 [facility] [address] [id number] [address] [place] [id number] Dec, Major depressive disorder, r ecurrent episode, moderate F33.1 [place] [address] [id number] [address] [place] [id number] Dec, Major depressive disorder, r ecurrent episode, moderate F33.1 [place] [address] [facility] [id number] [address] [place] [id number] Nov, [place] [address] [facility] [id number] [address] [place] [id number] Nov, Bipolar 1 disorder, mixed F3 1.60 [place] [id number] [id number] [address] [place] [id number] Nov, Major depressive disorder, r ecurrent episode, moderate F33.1 [place] [address] [facility] [id number] [address] [place] [id number] Nov, Cervicalgia M54.2 ; Arthralg ia of hip, unspecified laterality M25.559 ; Allergic rhinitis J30.9 and Hormone replacement therapy Z79.890 [facility] [address] [facility] [id number] [address] [place] [id number] Nov, Other seasonal allergic rhin itis J30.2 [facility] [address] [facility] [id number] [address] [place] [address] [address] October, Major depressive disorder, r ecurrent episode, moderate F33.1 [facility] [address] [facility] [id number] [address] [place] [id number] October, Major depressive disorder, r ecurrent episode, moderate F33.1 and Arthralgia of hip, unspecified laterality M25.559 [facility] [address] [facility] [id number] [address] [place] [address] October, Grief F43.20 ; Hypertension I10 ; Hyperlipidemia, unspecified hyperlipidemia type E78.5 ; Other chronic pain G89.29 and Allergic rhinitis, unspecified allergic rhinitis type J30.9 [place] [address] [facility] [id number] [address] [place] [address] October, Major depressive disorder, r ecurrent episode, moderate F33.1 [place] [address] [id number] [address] [place] [address] Sep, Major depressive disorder, r ecurrent episode, moderate F33.1 [place] [address] [facility] [id number] [address] [place] [id number] Sep, [place] [address] [place] [id number] [address] [place] [address] Sep, Major depressive disorder, r ecurrent episode, moderate F33.1 [place] [address] [place] [id number] [address] [place] [address] Sep, Grief F43.20 [place] [address] [place] [id number] [address] [place] [address] Aug, Major depressive disorder, r ecurrent episode, moderate F33.1 [place] [address] [facility] [id number] [address] [place] [address] Aug, Bipolar 1 disorder, mixed F3 1.60 [place] [address] [facility] [id number] [address] [place] [address] Aug, Allergic rhinitis J30.9 ; Ce rvicalgia M54.2 and Low back pain M54.5 [facility] [address] [facility] [id number] [address] [place] [address] Aug, Major depressive disorder, r ecurrent episode, moderate F33.1 [facility] [address] [facility] [id number] [address] [place] [address] Aug, Sinusitis J32.9 and Tobacco 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 [facility] [address] [facility] [id number] [address] [place] [address] Aug, [facility] [address] [facility] [id number] [address] [place] [address] Aug, Depressive disorder, not els ewhere classified F32.9 ; Hormone replacement therapy Z79.[address] scan, head R93.0 [facility] [address] [facility] [id number] [address] [place] [address] Aug, Major depressive disorder, r ecurrent episode, moderate F33.1 [facility] [address] [facility] [id number] [address] [place] [address] Jul, Major depressive disorder, r ecurrent episode, moderate F33.1 [facility] [address] [place] [id number] [address] [place] [id number] Jul, Abdominal pain R10.9 and Hyp ertension I10 [facility] [address] [facility] [id number] [address] [place] [address] Jul, [facility] [address] [place] [id number] [address] [place] [address] Jul, Major depressive disorder, r ecurrent episode, moderate F33.1 [facility] [address] [place] [id number] [address] [place] [id number] Jul, [facility] [address] [facility] [id number] [address] [place] [id number] Jul, [facility] [address] [facility] [id number] [address] [place] [id number] Jun, [facility] [address] [facility] [id number] [address] [place] [address] Jun, Depressive disorder, not els ewhere classified F32.9 [facility] [address] [place] [id number] [address] [place] [id number] Jun, [facility] [address] [id number] [address] [place] [address] Jun, [facility] [address] [facility] [id number] [address] [place] [address] Jun, Arthralgia of hip, unspecifi ed laterality M25.559 ; Bruising, spontaneous R23.3 and Night sweats R61 [facility] [address] [id number] [address] [place] [id number] Jun, [facility] [address] [id number] [address] [place] [address] Jun, [facility] [address] [facility] [id number] [address] [place] [address] May, [facility] [address] [place] [id number] [address] [place] [address] May, Myalgia M79.1 and Screening, lipid Z13.220 [facility] [address] [facility] [id number] [address] [place] [address] Apr, Status post cervical spinal fusion Z98.1 ; Fibromyalgia M79.7 and Unsteady gait R26.81 [facility] [address] [facility] [id number] [address] [place] [id number] Nov, [facility] [address] [facility] [id number] [address] [place] [address] Nov, [facility] [address] [facility] [id number] [address] [place] [id number] October, [facility] [address] [facility] [id number] [address] [place] [address] October, [facility] [address] [facility] [id number] [address] [place] [id number] October, [facility] [address] [facility] [id number] [address] [place] [id number] October, [facility] [address] [id number] [address] [place] [address] October, [facility] [address] [id number] [address] [place] [address] October, Dysuria 788.1 ; Nausea 787.0 2 and Urinary tract infection 599.0 [facility] [address] [id number] [address] [place] [address], [place] [id number] Sep, [facility] [address] [id number] [address] [place] [id number] Sep, [facility] [address] [id number] [address] [place] [address], [place] [address] Aug, [facility] [address] [id number] [address] [place] [id number] Aug, [facility] [address] [id number] [address] [place] [address], [place] [address] Aug, [facility] [address] [id number] [address] [place] [address], [place] [address] Aug, [facility] [address] [id number] [address] [place] [address], [place] [address] Aug, [facility] [address] [id number] [address] [place] [address] Aug, [facility] [address] [id number] [address] [place] [address], [place] [address] Aug, [facility] [address] [id number] [address] [place] [id number] Aug, [facility] [address] [id number] [address] [place] [address], [place] [address] Aug, [facility] [address] [id number] [address] [place] [address], [place] [address] Aug, [facility] [address] [id number] [address] [place] [id number] Aug, [facility] [address] [id number] [address] [place] [address], [place] [address] 13 Aug, 2014 [facility] [address] [id number] [address] [place] [address], [place] [address] 13 Aug, 2014 [facility] [address] [id number] [address] [place] [address], [place] [address] Aug, [facility] [address] [id number] [address] [place] [address], [place] [address] Aug, [facility] [address] [id number] [address] [place] [address], [place] [address] Aug, [facility] [address] [id number] [address] [place] [address], [place] [address] Aug, [facility] [address] [id number] [address] [place] [address], [place] [address] Aug, 2014 [facility] [address] [id number] [address] [place] [address], [place] [address] Aug, [facility] [address] [id number] [address] [place] [address], [place] [address] Aug, [facility] [address] [id number] [address] [place] [address], [place] [address] Aug, [facility] [address] [id number] [address] [place] [address], [place] [address] Aug, [facility] [address] [id number] [address] [place] [address], [place] [address] Jul, 2014 [facility] [address] [id number] [address] [place] [address], [place] [address] Jul, [facility] [address] [id number] [address] [place] [address], [place] [address] Jul, [facility] [address] [id number] [address] [place] [address], [place] [address] Jul, [facility] [address] [id number] [address] [place] [address], [place] [address] Jul, 2014 [facility] [address] [id number] [address] [place] [address], [place] [address] Jul, 2014 [facility] [address] [id number] [address] [place] [address], [place] [address] Jul, 2014 [facility] [address] [id number] [address] [place] [address], [place] [address] Jul, 2014 [facility] [address] [id number] [address] [place] [address], [place] [address] Jul, 2014 [facility] [address] [id number] [address] [place] [address], [place] [address] Jul, 2014 [facility] [address] [id number] [address] [place] [address], [place] [address] Jul, 2014 [facility] [address] [id number] [address] [place] [address], [place] [address] Jul, 2014 [facility] [address] [id number] [address] [place] [address], [place] [address] Jul, [facility] [address] [id number] [address] [place] [address], [place] [address] Jul, [facility] [address] [id number] [address] [place] [address], [place] [address] Jun, [facility] [address] [id number] [address] [place] [address], [place] [address] Jun, [facility] [address] [id number] [address] [place] [id number] Jun, [facility] [address] [id number] [address] [place] [address], [place] [address] Jun, [facility] [address] [id number] [address] [place] [address], [place] [address] Jun, [facility] [address] [id number] [address] [place] [id number] Jun, [facility] [address] [id number] [address] [place] [address], [place] [address] May, [facility] [address] [id number] [address] [place] [address], [place] [address] May, [facility] [address] [id number] [address] [place] [address], [place] [address] May, [facility] [address] [id number] [address] [place] [address], [place] [address] May, [facility] [address] [id number] [address] [place] [address], [place] [address] May, [facility] [address] [id number] [address] [place] [address], [place] [address] May, [facility] [address] [id number] [address] [place] [address], [place] [address] Apr, [facility] [address] [id number] [address] [place] [address], [place] [address] Apr, [facility] [address] [id number] [address] [place] [address], [place] [address] Apr, [facility] [address] [id number] [address] [place] [address], [place] [address] Apr, [facility] [address] [id number] [address] [place] [address], [place] [address] Apr, [facility] [address] [id number] [address] [place] [address], [place] [address] Apr, [facility] [address] [id number] [address] [place] [address], [place] [address] Mar, [facility] [address] [id number] [address] [place] [address], [place] [address] Mar, [facility] [address] [id number] [address] [place] [address], [place] [address] Mar, [facility] [address] [id number] [address] [place] [address], [place] [address] 09 Mar, 2013 [facility] [address] [id number] [address] [place] [address], [place] [address] Mar, 2013 [facility] [address] [id number] [address] [place] [address], [place] [address] Mar, 2013 [facility] [address] [id number] [address] [place] [address], [place] [address] Mar, 2013 [facility] [address] [id number] [address] [place] [address], [place] [address] Mar, 2013 [facility] [address] [id number] [address] [place] [address], [place] [address] Mar, 2013 [facility] [address] [id number] [address] [place] [address], [place] [address] Mar, 2013 [facility] [address] [id number] [address] [place] [address], [place] [address] Mar, 2013 [facility] [address] [id number] [address] [place] [address], [place] [address] Mar, 2013 [facility] [address] [id number] [address] [place] [address], [place] [address] 30 Feb, 2013 [facility] [address] [id number] [address] [place] [address], [place] [address] 29 Sep, 2013 [facility] [address] [id number] [address] [place] [address], [place] [address] 29 Sep, 2013 [facility] [address] [id number] [address] [place] [address], [place] [address] 23 Sep, 2013 [facility] [address] [id number] [address] [place] [address], [place] [address] 23 Sep, 2013 [facility] [address] [id number] [address] [place] [address], [place] [address] 08 Sep, 2013 [facility] [address] [id number] [address] [place] [address], [place] [address] 08 Feb, 2014 [facility] [address] [id number] [facility] [place] [address] Jan, [facility] [address] [id number] [address] [place] [address], [place] [address] Jan, [facility] [address] [id number] [address] [place] [address], [place] [address] Jan, [facility] [address] [id number] [address] [place] [address], [place] [address] Dec, [facility] [address] [id number] [address] [place] [address], [place] [address] Dec, [facility] [address] [id number] [address] [place] [address], [place] [address] Dec, [facility] [address] [id number] [address] [place] [address], [place] [address] Dec, [facility] [address] [id number] [address] [place] [address], [place] [address] Sep, [facility] [address] [id number] [address] [place] [address], [place] [address] Sep, [facility] [address] [id number] [address] [place] [address], [place] [address] Sep, [facility] [address] [id number] [address] [place] [address], [place] [address] Sep, [facility] [address] [id number] [address] [place] [address], [place] [address] Sep, [facility] [address] [id number] [address] [place] [address], [place] [address] Sep, [facility] [address] [id number] [address] [place] [address], [place] [address] Sep, [facility] [address] [id number] [address] [place] [address], [place] [address] Sep, [facility] [address] [id number] [address] [place] [address], [place] [address] 10 Aug, 2013 [facility] [address] [id number] [address] [place] [address], [place] [address] 10 Aug, 2013 [facility] [address] [id number] [address] [place] [address], [place] [address] May, [facility] [address] [id number] [address] [place] [address], [place] [address] May, [facility] [address] [id number] [address] [place] [address], [place] [address] Apr, [facility] [address] [id number] [address] [place] [address], [place] [address] Apr, [facility] [address] [id number] [address] [place] [address], [place] [address] Apr, [facility] [address] [id number] [address] [place] [address], [place] [address] Apr, [facility] [address] [id number] [address] [place] [address], [place] [address] Apr, [facility] [address] [id number] [address] [place] [address], [place] [address] Apr, [facility] [address] [id number] [address] [place] [address], [place] [address] May, [facility] [address] [id number] [address] [place] [address], [place] [address] 18 May, 2012 [facility] [address] [id number] [address] [place] [address], [place] [address] 15 May, 2012 [facility] [address] [id number] [address] [place] [address], [place] [address] 15 May, 2012 [facility] [address] [id number] [address] [place] [address], [place] [address] 13 May, 2012 [facility] [address] [id number] [address] [place] [address], [place] [address] 13 May, 2012 [facility] [address] [id number] [address] [place] [address], [place] [address] 13 Apr, 2012 [facility] [address] [id number] [address] [place] [address], [place] [address] 13 Apr, 2012 [facility] [address] [id number] [address] [place] [address], [place] [address] 08 Apr, 2012 [facility] [address] [id number] [address] [place] [address], [place] [address] 08 Apr, 2012 [facility] [address] [id number] [address] [place] [address], [place] [address] 08 Apr, 2012 [facility] [address] [id number] [address] [place] [address], [place] [address] Apr, [facility] [address] [id number] [address] [place] [address], [place] [address] Apr, [facility] [address] [id number] [address] [place] [address], [place] [address] Apr, [facility] [address] [id number] [address] [place] [address], [place] [address] Apr, [facility] [address] [id number] [address] [place] [address], [place] [address] Apr, [facility] [address] [id number] [address] [place] [address], [place] [address] Mar, [facility] [address] [id number] [address] [place] [address], [place] [address] Mar, [facility] [address] [id number] [address] [place] [address], [place] [address] Mar, [facility] [address] [id number] [address] [place] [address], [place] [address] Mar, [facility] [address] [id number] [address] [place] [address], [place] [id number] Mar, [facility] [address] [id number] [address] [place] [address], [place] [address] Mar, [facility] [address] [id number] [address] [place] [address], [place] [address] Mar, [facility] [address] [id number] [address] [place] [address], [place] [address] Mar, [facility] [address] [id number] [address] [place] [address], [place] [address] Mar, [facility] [address] [id number] [address] [place] [address], [place] [id number] 25 Feb, 2012 [facility] [address] [id number] [address] [place] [address], [place] [id number] 16 Feb, 2012 [facility] [address] [id number] [address] [place] [address], [place] [address] Feb, [facility] [address] [id number] [address] [place] [address], [place] [address] Jan, [facility] [address] [id number] [address] [place] [address], [place] [address] Jan, [facility] [address] [id number] [address] [place] [address], [place] [address] Jan, [facility] [address] [id number] [address] [place] [address], [place] [id number] Jan, [facility] [address] [id number] [address] [place] [address], [place] [address] Jan, [facility] [address] [id number] [address] [place] [id number] Jan, [facility] [address] [id number] [address] [place] [address], [place] [address] 16 Jan, 2012 [facility] [address] [id number] [address] [place] [address], [place] [address] Jan, [facility] [address] [id number] [address] [place] [address], [place] [address] Jan, [facility] [address] [id number] [address] [place] [address], [place] [address] Jan, [facility] [address] [id number] [address] [place] [address], [place] [address] Dec, [facility] [address] [id number] [address] [place] [address], [place] [address] Dec, [facility] [address] [id number] [address] [place] [address], [place] [address] Dec, [facility] [address] [id number] [address] [place] [address], [place] [address] Dec, [facility] [address] [id number] [address] [place] [address], [place] [address] Nov, [facility] [address] [id number] [address] [place] [address], [place] [id number] Nov, [facility] [address] [id number] [address] [place] [address], [place] [address] Nov, [facility] [address] [id number] [address] [place] [address], [place] [address] October, [facility] [address] [id number] [address] [place] [address], [place] [address] October, [facility] [address] [id number] [address] [place] [address], [place] [address] October, [facility] [address] [id number] [address] [place] [address], [place] [address] October, [facility] [address] [id number] [address] [place] [address], [place] [address] October, [facility] [address] [id number] [address] [place] [address], [place] [address] October, [facility] [address] [id number] [address] [place] [address], [place] [id number] Aug, [facility] [address] [id number] [address] [place] [address], [place] [address] Mar, [facility] [address] [id number] [address] [place] [id number] 16 Nov, 2010 [facility] [address] [facility] [id number] [address] [place] [id number] May, [facility] [address] [facility] [id number] [address] [place] [id number] May, [facility] [address] [facility] [id number] [address] [place] [id number] Apr, [facility] [address] [facility] [id number] [address] [place], [place] [id number] Mar, [facility] [address] [facility] [id number] [address] [place] [id number] Mar, IMMUNIZATIONS No Known Immunizations SOCIAL HISTORY Never Assessed REASON FOR VISIT f/u PLAN OF CARE Activity Details Follow Up 1 Week Reason: F/U VITAL SIGNS MEDICATIONS Unknown Medications RESULTS No Results PROCEDURES Procedure Date Ordered Result Body Site Psychotherapy, patient &/family, 45 minutes, established pat ient December 12, 2016 INSTRUCTIONS MEDICATIONS ADMINISTERED No Known Medications MEDICAL [...]
--- OUTSIDE RECORDS SUMMARY | 2019-06-19 05:52 | XMS REPORT ---
Author Author Sydnie MORTON Organization [facility] Address [address] [place] [address] Care Team Providers Care Line Up Worker Name Role Phone JOHN MORTON Unavailable PROBLEMS Type Condition ICD9-CM Code EPD05-GD Code Onset Dates Condition S tatus SNOMED Code Problem Hormone replacement therapy Z79.890 Ac tive 470544478 Problem Abnormal CT scan, head R93.0 Active 127121569 Problem Sensorineural hearing loss (SNHL) of both ears H90 .3 Active 116777439 Problem History of colon polyps Z86.010 Active 256271274 Problem Bruising, spontaneous R23.3 Active 630331769 Problem Generalized anxiety disorder F41.1 A ctive 42943295 Problem Arthralgia of hip, unspecified laterality M25.559 Active 93739838 Problem Hematuria, unspecified type R31.9 Ac tive 79348768 Problem Imbalance R26.89 Active 349048622 Problem Hammer toe of right foot M20.41 Activ e 443980458 Problem Plantar wart of right foot B07.0 Act mitchell [id number] Problem Sciatica of left side M54.32 Active 51013424 Problem Hyperlipidemia, unspecified hyperlipidemia type E7 8.5 Active 08329239 Problem Hypertension I10 Active 9199430 3 Problem Night sweats R61 Active 9470002 0 Problem Fibromyalgia M79.7 Active 5107943 7 Problem Major depressive disorder, recurrent episode, moderate F33.1 Active 966458751 Problem Acute left-sided low back pain with left-sided sciatica M54.42 Active 875247525 Problem Bladder spasm N32.89 Active 304211 006 Problem Gastritis without bleeding, unspecified chronicity, unspecified gastritis type K29.70 Active 449350670 Problem Bipolar 1 disorder, mixed F31.60 Acti ve 61463119 Problem Grief F43.20 Active 31411679 Problem Other chronic pain G89.29 Active 8 6256827 Problem Allergic rhinitis J30.9 Active 61 901988 Problem Hot flashes due to menopause N95.1 A ctive 300946714 Problem Ataxia R27.0 Active 96004094 Problem Hearing loss, unspecified laterality H91.90 Active 00266145 ALLERGIES No Information ENCOUNTERS Encounter Location Date Diagnosis [facility] [address] [facility] [id number] [address] [place] [address] Dec, [facility] [address] [facility] [id number] [address] [place] [address] Nov, [facility] [address] [facility] [id number] [address] [place] [address] October, [facility] [address] [facility] [id number] [address] [place] [address] October, [facility] [address] [place] [id number] [address] [place] [address] Sep, [facility] [address] [facility] [id number] [address] [place] [address] Sep, [facility] [address] [facility] [id number] [address] [place] [address] Sep, Allergic rhinitis J30.9 and Sciatica of left side M54.32 [facility] [address] [facility] [id number] [address] [place] [address] Sep, Bipolar 1 disorder, mixed F3 1.60 [facility] [address] [facility] [id number] [address] [place] [address] Sep, Bipolar 1 disorder, mixed F3 1.60 and Generalized anxiety disorder F41.1 [facility] [address] [facility] [id number] [address] [place] [address] Aug, [facility] [address] [place] [id number] [address] [place] [address] Aug, Bipolar 1 disorder, mixed F3 1.60 [facility] [address] [facility] [id number] [address] [place] [address] Aug, Bipolar 1 disorder, mixed F3 1.60 [facility] [address] [facility] [id number] [address] [place] [address] Aug, [facility] [address] [facility] [id number] [address] [place] [address] Aug, Generalized anxiety disorder F41.1 [facility] [address] [facility] [id number] [address] [place] [address] Aug, Bipolar 1 disorder, mixed F3 1.60 [facility] [address] [facility] [id number] [address] [place] [address] Aug, Plantar wart of right foot B 07.0 [facility] [address] [facility] [id number] [address] [place] [address] Aug, Bipolar 1 disorder, mixed F3 1.60 [facility] [address] [facility] [id number] [address] [place] [address] Jul, Bipolar 1 disorder, mixed F3 1.60 [facility] [address] [facility] [id number] [address] [place] [address] Jul, [facility] [address] [facility] [id number] [address] [place] [address] Jul, Bipolar 1 disorder, mixed F3 1.60 [facility] [address] [facility] [id number] [address] [place] [address] Jul, Generalized anxiety disorder F41.1 [facility] [address] [facility] [id number] [address] [place] [address] Jul, Bipolar 1 disorder, mixed F3 1.60 [facility] [address] [facility] [id number] [address] [place] [address] Jul, Acute left-sided low back pa in with left-sided sciatica M54.42 [facility] [address] [facility] [id number] [address] [place] [address] 05 Jul, 2017 Coccydynia M53.3 [facility] [address] [place] [id number] [address] [place] [address] Jun, Bipolar 1 disorder, mixed F3 1.60 [facility] [address] [facility] [id number] [address] [place] [address] Jun, Acute nasopharyngitis J00 [place] [address] [place] [id number] [address] [place] [address] Jun, Bipolar 1 disorder, mixed F3 1.60 [place] [address] [place] [id number] [address] [place] [address] Jun, Fibromyalgia M79.7 [place] [address] [place] [id number] [place] [address] Jun, Bipolar 1 disorder, mixed F3 1.60 [place] [address] [place] [id number] [place] [address] Jun, Fibromyalgia M79.7 and Bipol ar 1 disorder, mixed F31.60 [place] [address] [place] [address] May, Bipolar 1 disorder, mixed F3 1.60 ; Generalized anxiety disorder F41.1 and Other group home (current) drug therapy Z79.899 [place] [address] [place] [id number] [address] [place] [address] May, Bipolar 1 disorder, mixed F3 1.60 [facility] [address] [place] [address] 14 May, 2017 Cough R05 and Body aches R52 [facility] [address] [place] [id number] [address] [place] [address] 10 May, 2017 Bladder spasm N32.89 and Acu te cystitis without hematuria N30.00 [place] [address] [place] [id number] [address] [place] [address] 07 May, 2017 Bipolar 1 disorder, mixed F3 1.60 [place] [address] [place] [id number] [address] [place], [place] [address] Apr, [facility] [address] [place] [address] Apr, Major depressive disorder, r ecurrent episode, moderate F33.1 and Encounter for immunization Z23 [facility] [address] [address] Apr, Bipolar 1 disorder, mixed F3 1.60 [facility] [address] [address] Apr, Bipolar 1 disorder, mixed F3 1.60 [place] [address] Apr, Bipolar 1 disorder, mixed F3 1.60 [place] [address] [address] Apr, Yeast vaginitis B37.3 [facility] [address] [address] Apr, Bipolar 1 disorder, mixed F3 1.60 [facility] [address] [address] Apr, Cellulitis L03.[address] for immunization Z23 [facility] [address] [address] Apr, Bipolar 1 disorder, mixed F3 1.60 [facility] [address] [address] Mar, Bipolar 1 disorder, mixed F3 1.60 [place] [address] [address] Mar, Bipolar 1 disorder, mixed F3 1.60 [facility] [address] [address] Mar, Imbalance R26.89 and Encount er for immunization Z23 [facility] [address] [place] [address] Mar, Generalized anxiety disorder F41.1 [place] [address] [place] [id number] [place] [address] Mar, Bipolar 1 disorder, mixed F3 1.60 [place] [address] [place] [id number] [place] [address] Mar, Generalized anxiety disorder F41.1 [place] [address] [address] Mar, Bipolar 1 disorder, mixed F3 1.60 [place] [address] [place] [address] Mar, Bipolar 1 disorder, mixed F3 1.60 [place] [address] [address] Feb, Bipolar 1 disorder, mixed F3 1.60 [place] [address] [address] Feb, Bipolar 1 disorder, mixed F3 1.60 and Generalized anxiety disorder F41.1 [place] [address] [place] [address] Feb, Gastritis without bleeding, unspecified chronicity, unspecified gastritis type K29.70 ; Hammer toe of right foot M20.41 and Other viral warts B07.8 [place] [address] [address] Feb, Bipolar 1 disorder, mixed F3 1.60 [place] [address] [place] [id number] [address] [place] [address] Feb, Bipolar 1 disorder, mixed F3 1.60 [place] [address] [place] [address] 05 Feb, 2017 Bipolar 1 disorder, mixed F3 1.60 [place] [address] [address] Jan, Encounter for screening mamm ogram for breast cancer Z12.31 ; Other viral warts B07.8 and Allergic rhinitis J30.9 [facility] [address] [facility] [id number] [address] [place] [address] Jan, Bipolar 1 disorder, mixed F3 1.60 [facility] [address] [facility] [id number] [address] [place] [address] Jan, Bipolar 1 disorder, mixed F3 1.60 [facility] [address] [facility] [id number] [address] [place] [address] Jan, [facility] [address] [facility] [id number] [address] [place] [address] Jan, Bipolar 1 disorder, mixed F3 1.60 [facility] [address] [facility] [id number] [address] [place] [address] Jan, Bipolar 1 disorder, mixed F3 1.60 [place] [address] [facility] [id number] [address] [place] [address] Jan, Allergic rhinitis J30.9 ; He maturia R31.9 and Colon cancer screening Z12.11 [facility] [address] [facility] [id number] [address] [place] [address] Dec, Bipolar 1 disorder, mixed F3 1.60 [facility] [address] [facility] [id number] [address] [place] [address] Dec, Bipolar 1 disorder, mixed F3 1.60 ; Generalized anxiety disorder F41.1 and 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5 and Recu rrent urinary tract infection N39.0 [facility] [address] [facility] [id number] [address] [place] [address] Nov, Bipolar 1 disorder, mixed F3 1.60 [facility] [address] [facility] [id number] [address] [place] [address] Nov, Bipolar 1 disorder, mixed F3 1.60 [facility] [address] [facility] [id number] [address] [place] [address] Nov, Bipolar 1 disorder, mixed F3 1.60 [facility] [address] [facility] [id number] [address] [place] [address] Nov, Bipolar 1 disorder, mixed F3 1.60 [place] [address] [facility] [id number] [address] [place] [address] Nov, [facility] [address] [facility] [id number] [address] [place] [address] Nov, Anesthesia of skin R20.0 ; F requent UTI N39.0 ; Tobacco abuse Z72.0 and Colon cancer screening Z12.11 [facility] [address] [facility] [id number] [address] [place] [address] Nov, Bipolar 1 disorder, mixed F3 1.60 [facility] [address] [facility] [id number] [address] [place] [address] October, Bipolar 1 disorder, mixed F3 1.60 [facility] [address] [facility] [id number] [address] [place] [address] October, Bipolar 1 disorder, mixed F3 1.60 [facility] [address] [facility] [id number] [address] [place] [address] October, Bipolar 1 disorder, mixed F3 1.60 [facility] [address] [facility] [id number] [address] [place] [address] October, Bipolar 1 disorder, mixed F3 1.60 [place] [address] [address] October, Bipolar 1 disorder, mixed F3 1.60 [facility] [address] [place] [id number] [address] [place] [address] October, Cervicalgia M54.2 and Bipola r 1 disorder, mixed F31.60 [place] [address] [address] October, Hypertension I10 ; Hyperlipi demia, unspecified hyperlipidemia type E78.5 and Family history of thyroid disease Z83.49 [place] [address] [place] [id number] [place] [address] October, [place] [address] [address] October, Hypertension I10 ; Hyperlipi demia, unspecified hyperlipidemia type E78.5 and Family history of thyroid problem Z83.49 [place] [address] [address] October, Bipolar 1 disorder, mixed F3 1.60 [place] [address] [address] Sep, Bipolar 1 disorder, mixed F3 1.60 [place] [address] [place] [id number] [address] [place] [address] Sep, Bipolar 1 disorder, mixed F3 1.60 [place] [address] [place] [id number] [address] [place] [address] Sep, Bipolar 1 disorder, mixed F3 1.60 [place] [address] [place] [id number] [address] [place] [address] Sep, History of colon polyps Z86. 010 and Hematochezia K92.1 [place] [address] [place] [id number] [address] [place] [address] Sep, Major depressive disorder, r ecurrent episode, moderate F33.1 [facility] [address] [facility] [id number] [address] [place], [place] [address] Sep, Bipolar 1 disorder, mixed F3 1.60 [facility] [address] [facility] [id number] [address] [place] [address] Aug, Hot flashes due to menopause N95.1 [facility] [address] [id number] [address] [place] [address] Aug, Bipolar 1 disorder, mixed F3 1.60 [facility] [address] [facility] [id number] [address] [place] [address] Aug, [facility] [address] [facility] [id number] [address] [place], [place] [address] Aug, Bipolar 1 disorder, mixed F3 1.60 [facility] [address] [facility] [id number] [address] [place] [address] Aug, Bipolar 1 disorder, mixed F3 1.60 [facility] [address] [facility] [id number] [address] [place] [address] Aug, Hot flashes due to menopause N95.1 ; Cervicalgia M54.2 and Ataxia R27.0 [facility] [address] [facility] [id number] [address] [place] [address] Jul, Bipolar 1 disorder, mixed F3 1.60 [facility] [address] [facility] [id number] [address] [place] [address] Jul, Bipolar 1 disorder, mixed F3 1.60 [facility] [address] [facility] [id number] [address] [place] [address] Jul, Bipolar 1 disorder, mixed F3 1.60 [facility] [address] [facility] [id number] [address] [place] [address] Jul, Bipolar 1 disorder, mixed F3 1.60 [facility] [address] [facility] [address] [place], [place] [address] 10 Jul, 2016 Bipolar 1 disorder, mixed F3 1.60 [place] [address] 08 Jul, 2016 Cervicalgia M54.2 ; Tremor R 25.1 ; Hearing abnormally acute, unspecified laterality H93.239 ; Alopecia L65.9 ; Encounter for immunization Z23 and Family history of thyroid disease Z83.49 [place] [address] Jul, Bipolar 1 disorder, mixed F3 1.60 [place] [address] Jun, [place] [address] Jun, Hearing disorder, unspecifie d laterality H93.299 [place] [address] Jun, Bipolar 1 disorder, mixed F3 1.60 [place] [address] Jun, Bipolar 1 disorder, mixed F3 1.60 [place] [address] [place] [address] Jun, Allergic rhinitis J30.9 [place] [address] Jun, Bipolar 1 disorder, mixed F3 1.60 [place] [address] [place] [address] Jun, Bipolar 1 disorder, mixed F3 1.60 [place] [address] [place] [address] Jun, Allergic rhinitis J30.9 [place] [address] [address] Jun, Allergic rhinitis J30.9 [facility] [address] [id number] [address] [place] [address] Jun, Bipolar 1 disorder, mixed F3 1.60 [facility] [address] [id number] [address] [place] [address] May, Bipolar 1 disorder, mixed F3 1.60 [facility] [address] [id number] [address] [place] [address] May, Bipolar 1 disorder, mixed F3 1.60 [facility] [address] [id number] [address] [place] [address] May, [facility] [address] [id number] [address] [place] [address] May, Bipolar 1 disorder, mixed F3 1.60 [facility] [address] [facility] [id number] [address] [place] [address] May, Bipolar 1 disorder, mixed F3 1.60 [facility] [address] [id number] [address] [place] [address] May, [facility] [address] [id number] [address] [place] [address] May, [facility] [address] [facility] [id number] [address] [place] [address] May, [facility] [address] [facility] [id number] [address] [place] [address] May, Abdominal pain, unspecified location R10.9 [facility] [address] [id number] [address] [place] [address] May, [facility] [address] [facility] [id number] [address] [place], [place] [address] Apr, Hematuria R31.9 ; Ataxia R27 .0 and Hearing loss, unspecified laterality H91.90 [facility] [address] [facility] [id number] [address] [place] [address] Apr, Bipolar 1 disorder, mixed F3 1.60 [facility] [address] [place] [id number] [address] [place] [address] 11 Apr, 2016 Acute effusion of both middl e ears H65.193 [facility] [address] [place] [address] 10 Apr, 2016 Hematuria R31.9 and Pyelonep hritis N12 [facility] [address] [address] Apr, [facility] [address] [address] Mar, Bipolar 1 disorder, mixed F3 1.60 [facility] [address] [address] Mar, [facility] [address] [address] Mar, Bipolar 1 disorder, mixed F3 1.60 [place] [address] [address] Mar, Bipolar 1 disorder, mixed F3 1.60 [facility] [address] [address] Mar, Encounter for immunization Z 23 and Gastritis without bleeding, unspecified chronicity, unspecified gastritis type K29.70 [place] [address] [place] [id number] [address] [place] [address] Mar, Bipolar 1 disorder, mixed F3 1.60 and Grief F43.20 [place] [address] [place] [id number] [address] [place] [address] Mar, Gastritis without bleeding, unspecified chronicity, unspecified gastritis type K29.70 [facility] [address] [place] [id number] [address] [place] [address] Mar, Bipolar 1 disorder, mixed F3 1.60 [place] [address] [address] Mar, Gastritis without bleeding, unspecified chronicity, unspecified gastritis type K29.70 [facility] [address] [facility] [id number] [address] [place] [id number] Mar, [facility] [address] [facility] [id number] [address] [place] [id number] Feb, Bipolar 1 disorder, mixed F3 1.60 [facility] [address] [id number] [address] [place] [id number] Feb, Bipolar 1 disorder, mixed F3 1.60 and Grief F43.20 [place] [address] [facility] [id number] [address] [place] [id number] Feb, Gastritis without bleeding, unspecified chronicity, unspecified gastritis type K29.70 [place] [address] [facility] [id number] [address] [place] [id number] 14 Feb, 2016 Bipolar 1 disorder, mixed F3 1.60 [facility] [address] [facility] [id number] [address] [place] [id number] Feb, Gastroesophageal reflux dise ase, esophagitis presence not specified K21.9 [facility] [address] [place] [id number] [address] [place] [id number] Jan, Bipolar 1 disorder, mixed F3 1.60 [place] [address] [place] [id number] [address] [place] [id number] Jan, Bipolar 1 disorder, mixed F3 1.60 and Unsteady gait R26.81 [place] [address] [facility] [id number] [address] [place] [id number] Jan, Bipolar 1 disorder, mixed F3 1.60 [place] [address] [place] [id number] [address] [place] [id number] Jan, Bipolar 1 disorder, mixed F3 1.60 and 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 [place] [address] [place] [id number] [address] [place] [id number] Jan, Bipolar 1 disorder, mixed F3 1.60 [facility] [address] [facility] [id number] [address] [place] [id number] Jan, Bipolar 1 disorder, mixed F3 1.60 [facility] [address] [facility] [id number] [address] [place] [phone] Jan, Bipolar 1 disorder, mixed F3 1.60 ; Grief F43.20 and 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 [facility] [address] [facility] [id number] [address] [place] [id number] Jan, Bipolar 1 disorder, mixed F3 1.60 [facility] [address] [place] [id number] [address] [place] [id number] Dec, [facility] [address] [place] [id number] [address] [place] [id number] Dec, Bipolar 1 disorder, mixed F3 1.60 ; Vitamin D deficiency, unspecified E55.9 ; H/O allergic rhinitis Z87.09 ; Other chronic pain G89.29 and Dorsalgia, unspecified M54.9 [facility] [address] [facility] [id number] [address] [place] [id number] Dec, [facility] [address] [place] [id number] [address] [place] [id number] Dec, Bipolar 1 disorder, mixed F3 1.60 [facility] [address] [place] [id number] [address] [place] [id number] Dec, Major depressive disorder, r ecurrent episode, moderate F33.1 [facility] [address] [facility] [id number] [address] [place] [address] Dec, Major depressive disorder, r ecurrent episode, moderate F33.1 [facility] [address] [facility] [id number] [address] [place] [address] Nov, [facility] [address] [facility] [id number] [address] [place] [address] Nov, Bipolar 1 disorder, mixed F3 1.60 [place] [address] [facility] [id number] [address] [place] [address] Nov, Major depressive disorder, r ecurrent episode, moderate F33.1 [place] [id number] [facility] [id number] [address] [place] [address] Nov, Cervicalgia M54.2 ; Arthralg ia of hip, unspecified laterality M25.559 ; Allergic rhinitis J30.9 and Hormone replacement therapy Z79.890 [facility] [address] [facility] [id number] [address] [place] [address] 13 Nov, 2015 Other seasonal allergic rhin itis J30.2 [place] [address] [facility] [id number] [address] [place] [address] October, Major depressive disorder, r ecurrent episode, moderate F33.1 [place] [address] [facility] [id number] [address] [place] [address] October, Major depressive disorder, r ecurrent episode, moderate F33.1 and Arthralgia of hip, unspecified laterality M25.559 [place] [address] [facility] [id number] [address] [place] [address] October, Grief F43.20 ; Hypertension I10 ; Hyperlipidemia, unspecified hyperlipidemia type E78.5 ; Other chronic pain G89.29 and Allergic rhinitis, unspecified allergic rhinitis type J30.9 [place] [address] [facility] [id number] [address] [place] [address] October, Major depressive disorder, r ecurrent episode, moderate F33.1 [place] [address] [facility] [id number] [address] [place] [address] Sep, Major depressive disorder, r ecurrent episode, moderate F33.1 [place] [address] [facility] [id number] [address] [place] [address] Sep, [place] [address] [facility] [id number] [address] [place] [address] Sep, Major depressive disorder, r ecurrent episode, moderate F33.1 [facility] [address] [facility] [id number] [address] [place] [address] Sep, Grief F43.20 [facility] [address] [facility] [id number] [address] [place] [address] Aug, Major depressive disorder, r ecurrent episode, moderate F33.1 [place] [address] [place] [id number] [address] [place] [address] Aug, Bipolar 1 disorder, mixed F3 1.60 [place] [address] [place] [id number] [address] [place] [address] Aug, Allergic rhinitis J30.9 ; Ce rvicalgia M54.2 and Low back pain M54.5 [place] [id number] [place] [address] Aug, Major depressive disorder, r ecurrent episode, moderate F33.1 [facility] [address] [facility] [id number] [address] [place] [address] Aug, Sinusitis J32.9 and Tobacco 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 [facility] [address] [place] [id number] [address] [place] [address] Aug, [facility] [address] [place] [id number] [address] [place] [address] Aug, Depressive disorder, not els ewhere classified F32.9 ; Hormone replacement therapy Z79.[address] scan, head R93.0 [facility] [address] [facility] [id number] [address] [place] [address] Aug, Major depressive disorder, r ecurrent episode, moderate F33.1 [facility] [address] [facility] [id number] [address] [place] [address] Jul, Major depressive disorder, r ecurrent episode, moderate F33.1 [facility] [address] [place] [id number] [address] [place] [address] Jul, Abdominal pain R10.9 and Hyp ertension I10 [facility] [address] [id number] [address] [place] [address] 08 Jul, 2015 [facility] [address] [facility] [id number] [address] [place] [address] Jul, Major depressive disorder, r ecurrent episode, moderate F33.1 [facility] [address] [facility] [id number] [address] [place] [address] Jul, [facility] [address] [id number] [address] [place] [address] Jul, [facility] [address] [facility] [id number] [address] [place] [address] Jun, [facility] [address] [place] [id number] [address] [place] [address] Jun, Depressive disorder, not els ewhere classified F32.9 [facility] [address] [facility] [id number] [address] [place] [address] Jun, [facility] [address] [facility] [id number] [address] [place] [address] Jun, [facility] [address] [facility] [id number] [address] [place] [address] Jun, Arthralgia of hip, unspecifi ed laterality M25.559 ; Bruising, spontaneous R23.3 and Night sweats R61 [facility] [address] [facility] [id number] [address] [place] [address] Jun, [facility] [address] [facility] [id number] [address] [place] [address] Jun, [facility] [address] [facility] [id number] [address] [place] [address] May, [facility] [address] [place] [id number] [address] [place] [address] May, Myalgia M79.1 and Screening, lipid Z13.220 [facility] [address] [facility] [id number] [address] [place] [address] Apr, Status post cervical spinal fusion Z98.1 ; Fibromyalgia M79.7 and Unsteady gait R26.81 [facility] [address] [id number] [address] [place] [address] Nov, [facility] [address] [id number] [address] [place] [address] Nov, [facility] [address] [id number] [address] [place] [address] October, [facility] [address] [id number] [address] [place] [address] October, [facility] [address] [facility] [id number] [address] [place] [address] October, [facility] [address] [facility] [id number] [address] [place] [address] October, [facility] [address] [facility] [id number] [address] [place] [address] October, [facility] [address] [facility] [id number] [address] [place] [address] October, Dysuria 788.1 ; Nausea 787.0 2 and Urinary tract infection 599.0 [facility] [address] [id number] [address] [place] [address] Sep, [facility] [address] [id number] [address] [place] [address] Sep, [facility] [address] [facility] [id number] [address] [place] [address] Aug, [facility] [address] [id number] [address] [place] [address] Aug, [facility] [address] [facility] [id number] [address] [place] [address] Aug, [facility] [address] [id number] [address] [place] [address], [place] [address] 24 Aug, 2014 [facility] [address] [id number] [address] [place] [address], [place] [address] 23 Aug, 2014 [facility] [address] [id number] [address] [place] [address], [place] [address] 19 Aug, 2014 [facility] [address] [id number] [address] [place] [address], [place] [address] 19 Aug, 2014 [facility] [address] [id number] [address] [place] [address], [place] [address] 19 Aug, 2014 [facility] [address] [id number] [address] [place] [address], [place] [address] 19 Aug, 2014 [facility] [address] [id number] [address] [place] [address], [place] [address] 18 Aug, 2014 [facility] [address] [id number] [address] [place] [address], [place] [address] 18 Aug, 2014 [facility] [address] [id number] [address] [place] [address], [place] [address] 13 Aug, 2014 [facility] [address] [id number] [address] [place] [address], [place] [address] 13 Aug, 2014 [facility] [address] [id number] [address] [place] [address], [place] [address] 11 Aug, 2014 [facility] [address] [id number] [address] [place] [address], [place] [address] 11 Aug, 2014 [facility] [address] [id number] [address] [place] [address], [place] [address] 06 Aug, 2014 [facility] [address] [id number] [address] [place] [address], [place] [address] 06 Aug, 2014 [facility] [address] [id number] [address] [place] [address], [place] [address] 05 Aug, 2014 [facility] [address] [id number] [address] [place] [address], [place] [address] 05 Aug, 2014 [facility] [address] [id number] [address] [place] [address], [place] [address] Aug, 2014 [facility] [address] [id number] [address] [place] [address], [place] [address] Aug, [facility] [address] [id number] [address] [place] [address], [place] [address] Aug, [facility] [address] [id number] [address] [place] [address], [place] [address] Jul, 2014 [facility] [address] [id number] [address] [place] [address], [place] [address] Jul, 2014 [facility] [address] [id number] [address] [place] [address], [place] [address] Jul, 2014 [facility] [address] [id number] [address] [place] [address], [place] [address] Jul, 2014 [facility] [address] [id number] [address] [place] [address], [place] [address] Jul, 2014 [facility] [address] [id number] [address] [place] [address], [place] [address] Jul, 2014 [facility] [address] [id number] [address] [place] [address], [place] [address] Jul, 2014 [facility] [address] [id number] [address] [place] [address], [place] [address] Jul, 2014 [facility] [address] [id number] [address] [place] [address], [place] [address] Jul, 2014 [facility] [address] [id number] [address] [place] [address], [place] [address] Jul, 2014 [facility] [address] [id number] [address] [place] [address], [place] [address] 18 Jul, 2014 [facility] [address] [id number] [address] [place] [address], [place] [address] Jul, [facility] [address] [id number] [address] [place] [address], [place] [address] Jul, [facility] [address] [id number] [address] [place] [address], [place] [address] Jul, [facility] [address] [id number] [address] [place] [address], [place] [address] Jun, [facility] [address] [id number] [address] [place] [address], [place] [address] Jun, [facility] [address] [id number] [address] [place] [address], [place] [address] Jun, [facility] [address] [id number] [address] [place] [address], [place] [address] Jun, [facility] [address] [id number] [address] [place] [address], [place] [address] Jun, [facility] [address] [id number] [address] [place] [address], [place] [address] Jun, [facility] [address] [id number] [address] [place] [address], [place] [address] May, [facility] [address] [id number] [address] [place] [address], [place] [address] May, [facility] [address] [id number] [address] [place] [address], [place] [address] May, [facility] [address] [id number] [address] [place] [address], [place] [address] May, [facility] [address] [id number] [address] [place] [address], [place] [address] May, [facility] [address] [id number] [address] [place] [address], [place] [address] May, [facility] [address] [id number] [address] [place] [address], [place] [address] Apr, [facility] [address] [id number] [address] [place] [address], [place] [address] Apr, [facility] [address] [id number] [address] [place] [address], [place] [address] Apr, [facility] [address] [id number] [address] [place] [address], [place] [address] Apr, [facility] [address] [id number] [address] [place] [address], [place] [address] Apr, [facility] [address] [id number] [address] [place] [address], [place] [address] Apr, [facility] [address] [id number] [address] [place] [address], [place] [address] Mar, [facility] [address] [id number] [address] [place] [address], [place] [address] Mar, [facility] [address] [id number] [address] [place] [address], [place] [address] Mar, [facility] [address] [id number] [address] [place] [address], [place] [address] Mar, [facility] [address] [id number] [address] [place] [address], [place] [address] Mar, [facility] [address] [id number] [address] [place] [address], [place] [address] Mar, [facility] [address] [id number] [address] [place] [address], [place] [address] Mar, [facility] [address] [id number] [address] [place] [address] Mar, [facility] [address] [id number] [address] [place] [address], [place] [address] Mar, [facility] [address] [id number] [address] [place] [address], [place] [address] Mar, [facility] [address] [id number] [address] [place] [address], [place] [address] Mar, [facility] [address] [id number] [address] [place] [address], [place] [address] Mar, [facility] [address] [id number] [address] [place] [address], [place] [address] 30 Feb, 2014 [facility] [address] [id number] [address] [place] [address], [place] [address] Feb, [facility] [address] [id number] [address] [place] [address], [place] [address] Feb, [facility] [address] [id number] [address] [place] [address], [place] [address] Feb, [facility] [address] [id number] [address] [place] [address], [place] [address] Feb, [facility] [address] [id number] [address] [place] [address], [place] [address] Feb, [facility] [address] [id number] [address] [place] [address], [place] [address] Feb, [facility] [address] [id number] [address] [place] [address], [place] [address] Jan, [facility] [address] [id number] [address] [place] [address], [place] [address] Jan, [facility] [address] [id number] [address] [place] [address], [place] [address] Jan, [facility] [address] [id number] [address] [place] [address], [place] [address] Dec, [facility] [address] [id number] [address] [place] [address], [place] [address] Dec, [facility] [address] [id number] [address] [place] [address], [place] [address] Dec, [facility] [address] [id number] [address] [place] [address], [place] [address] Dec, [facility] [address] [id number] [address] [place] [address], [place] [address] Sep, [facility] [address] [id number] [address] [place] [address], [place] [address] Sep, [facility] [address] [id number] [address] [place] [address], [place] [address] Sep, [facility] [address] [id number] [address] [place] [address], [place] [address] Sep, [facility] [address] [id number] [address] [place] [address], [place] [address] Sep, [facility] [address] [id number] [address] [place] [address], [place] [address] Sep, [facility] [address] [id number] [address] [place] [address], [place] [address] Sep, [facility] [address] [id number] [address] [place] [address], [place] [address] Sep, [facility] [address] [id number] [address] [place] [address], [place] [address] Aug, [facility] [address] [id number] [address] [place] [address], [place] [address] Aug, [facility] [address] [id number] [address] [place] [address], [place] [address] May, [facility] [address] [id number] [address] [place] [address], [place] [address] May, [facility] [address] [id number] [address] [place] [address], [place] [address] Apr, [facility] [address] [id number] [address] [place] [address], [place] [address] Apr, [facility] [address] [id number] [address] [place] [address], [place] [address] Apr, [facility] [address] [id number] [address] [place] [address], [place] [address] Apr, [facility] [address] [id number] [address] [place] [address], [place] [address] Apr, [facility] [address] [id number] [address] [place] [address], [place] [address] Apr, [facility] [address] [id number] [address] [place] [address], [place] [address] 18 May, 2012 [facility] [address] [id number] [address] [place] [address], [place] [address] 18 May, 2012 [facility] [address] [id number] [address] [place] [address], [place] [address] 15 May, 2012 [facility] [address] [id number] [address] [place] [address], [place] [address] 15 May, 2012 [facility] [address] [id number] [address] [place] [address], [place] [address] 13 May, 2012 [facility] [address] [id number] [address] [place] [address], [place] [address] 13 May, 2012 [facility] [address] [id number] [address] [place] [address], [place] [address] 13 Apr, 2012 [facility] [address] [id number] [address] [place] [address], [place] [address] 13 Apr, 2012 [facility] [address] [id number] [address] [place] [address], [place] [address] Apr, [facility] [address] [id number] [address] [place] [address], [place] [address] Apr, [facility] [address] [id number] [address] [place] [address], [place] [address] Apr, [facility] [address] [id number] [address] [place] [address], [place] [address] Apr, [facility] [address] [id number] [address] [place] [address], [place] [address] Apr, [facility] [address] [id number] [address] [place] [address], [place] [address] Apr, [facility] [address] [id number] [address] [place] [address], [place] [address] Apr, [facility] [address] [id number] [address] [place] [address], [place] [address] Apr, [facility] [address] [id number] [address] [place] [address], [place] [address] Mar, [facility] [address] [id number] [address] [place] [address], [place] [address] Mar, [facility] [address] [id number] [address] [place] [address], [place] [address] Mar, [facility] [address] [id number] [address] [place] [address], [place] [address] Mar, [facility] [address] [id number] [address] [place] [address], [place] [address] Mar, [facility] [address] [id number] [address] [place] [address], [place] [address] Mar, [facility] [address] [id number] [address] [place] [address], [place] [address] Mar, [facility] [address] [id number] [address] [place] [address], [place] [address] Mar, [facility] [address] [id number] [address] [place] [address], [place] [address] Mar, [facility] [address] [id number] [address] [place] [address], [place] [address] Feb, [facility] [address] [id number] [address] [place] [address], [place] [address] 16 Feb, 2012 [facility] [address] [id number] [address] [place] [address], [place] [address] 11 Feb, 2012 [facility] [address] [id number] [address] [place] [address], [place] [address] Jan, [facility] [address] [id number] [address] [place] [address] [place] [address] Jan, [facility] [address] [id number] [address] [place] [address], [place] [address] Jan, [facility] [address] [id number] [address] [place] [address], [place] [address] Jan, [facility] [address] [id number] [address] [place] [address], [place] [address] Jan, [facility] [address] [id number] [address] [place] [address], [place] [address] Jan, [facility] [address] [id number] [address] [place] [address], [place] [address] 16 Jan, 2012 [facility] [address] [id number] [address] [place] [address], [place] [address] Jan, [facility] [address] [id number] [address] [place] [address], [place] [address] Jan, [facility] [address] [id number] [address] [place] [address], [place] [address] Jan, [facility] [address] [id number] [address] [place] [address], [place] [address] Dec, [facility] [address] [id number] [address] [place] [address], [place] [address] Dec, [facility] [address] [id number] [address] [place] [address], [place] [address] Dec, [facility] [address] [id number] [address] [place] [address], [place] [address] Dec, [facility] [address] [id number] [address] [place] [address], [place] [address] Nov, [facility] [address] [id number] [address] [place] [address], [place] [address] Nov, [facility] [address] [id number] [address] [place] [address], [place] [address] Nov, [facility] [address] [id number] [address] [place] [address] October, [facility] [address] [id number] [address] [place] [address] October, [facility] [address] [id number] [address] [place] [address] October, [facility] [address] [id number] [address] [place] [address] October, [facility] [address] [id number] [address] [place] [address] October, [facility] [address] [id number] [address] [place] [address] October, [facility] [address] [id number] [address] [place] [id number] Aug, [facility] [address] [id number] [address] [place] [address] Mar, [facility] [address] [id number] [address] [place] [phone] Nov, [facility] [address] [id number] [address] [place] [phone] May, [facility] [address] [id number] [address] [place] [address] May, [facility] [address] [id number] [address] [place] [address] Apr, [facility] [address] [id number] [address] [place] [phone] Mar, [facility] [address] [id number] [address] [place] [address] Mar, IMMUNIZATIONS No Known Immunizations SOCIAL HISTORY Never Assessed REASON FOR VISIT BH f/u PLAN OF CARE Activity Details Follow Up 1 Week Reason:BH F/U VITAL SIGNS MEDICATIONS Unknown Medications RESULTS No Results PROCEDURES Procedure Date Ordered Result Body Site [facility] VISIT MENTAL HEALTH ESTAB PT Feb 13, 2017 Psychotherapy, patient &/family, 45 minutes, established patient Feb 13, 2017 INSTRUCTIONS MEDICATIONS ADMINISTERED No Known Medications [...]
--- OUTSIDE RECORDS SUMMARY | 2019-06-19 05:53 | XMS REPORT ---
Author Author Sydnie SQUIRES Organization [facility] Address [address] [place] [address] Care Team Providers Care Consulting It Architect Name Role Phone MIRIAN SQUIRES Unavailable PROBLEMS Type Condition ICD9-CM Code NMR51-[place] Code Onset Dates Condition S tatus SNOMED Code Problem Hormone replacement therapy Z79.890 Ac tive 236349964 Problem Abnormal CT scan, head R93.0 Active 809775883 Problem Sensorineural hearing loss (SNHL) of both ears H90 .3 Active 486629512 Problem History of colon polyps Z86.010 Active 826833470 Problem Bruising, spontaneous R23.3 Active 643145184 Problem Generalized anxiety disorder F41.1 A ctive 77230514 Problem Arthralgia of hip, unspecified laterality M25.559 Active 22892218 Problem Hematuria, unspecified type R31.9 Ac tive 45330368 Problem Imbalance R26.89 Active 275343655 Problem Hammer toe of right foot M20.41 Activ e 798231164 Problem Plantar wart of right foot B07.0 Act mitchell [id number] Problem Sciatica of left side M54.32 Active 01398054 Problem Hyperlipidemia, unspecified hyperlipidemia type E7 8.5 Active 15651163 Problem Hypertension I10 Active 9405298 3 Problem Night sweats R61 Active 7288455 0 Problem Fibromyalgia M79.7 Active 1367458 7 Problem Major depressive disorder, recurrent episode, moderate F33.1 Active 949619461 Problem Acute left-sided low back pain with left-sided sciatica M54.42 Active 003149188 Problem Bladder spasm N32.89 Active 494378 006 Problem Gastritis without bleeding, unspecified chronicity, unspecified gastritis type K29.70 Active 912259095 Problem Bipolar 1 disorder, mixed F31.60 Acti ve 26651026 Problem Grief F43.20 Active 61570666 Problem Other chronic pain G89.29 Active 8 6343742 Problem Allergic rhinitis J30.9 Active 61 011800 Problem Hot flashes due to menopause N95.1 A ctive 101596381 Problem Ataxia R27.0 Active 25510822 Problem Hearing loss, unspecified laterality H91.90 Active 44639117 ALLERGIES Substance Reaction Event Type Date Status Morphine Sulfate Unknown Drug Allergy May, Active Iodine Unknown Drug Allergy May, Active Lyrica 75 Mg Capsule "felt weird" Non Drug Allergy May, Act mitchell ENCOUNTERS Encounter Location Date Diagnosis [facility] [address] [facility] [id number] [address] [place] [address] Dec, [facility] [address] [facility] [id number] [address] [place] [address] Dec, [facility] [address] [place] [id number] [place] [address] Dec, [facility] [address] [place] [id number] [address] [place] [address] Dec, [facility] [address] [place] [id number] [address] [place] [address] Nov, [facility] [address] [place] [id number] [address] [place] [address] Nov, Bipolar 1 disorder, mixed F3 1.60 [facility] [address] [place] [id number] [address] [place] [address] Nov, Allergic rhinitis J30.9 [facility] [address] [facility] [id number] [address] [place] [address] Nov, Allergic rhinitis J30.9 [facility] [address] [facility] [id number] [address] [place] [address] Nov, [facility] [address] [facility] [id number] [address] [place] [address] Nov, Bipolar 1 disorder, mixed F3 1.60 [facility] [address] [facility] [id number] [address] [place] [address] Nov, Fibromyalgia M79.7 and Aller gic rhinitis J30.9 [facility] [address] [facility] [id number] [address] [place] [address] October, Bipolar 1 disorder, mixed F3 1.60 [facility] [address] [place] [id number] [address] [place] [address] October, Acute nasopharyngitis J00 [facility] [address] [place] [id number] [address] [place] [address] October, Bitten or stung by nonvenomo us insect and other nonvenomous arthropods, initial encounter W57.XXXA and Insect bite (nonvenomous) of abdominal wall, initial encounter S30.861A [facility] [address] [facility] [id number] [address] [place] [address] October, Insect bite (nonvenomous) of abdominal wall, initial encounter S30.861A ; Bitten or stung by nonvenomous insect and other nonvenomous arthropods, initial encounter W57.XXXA ; Allergic rhinitis J30.9 and Low back pain M54.5 [facility] [address] [place] [id number] [address] [place] [address] October, Bipolar 1 disorder, mixed F3 1.60 [facility] [address] [place] [id number] [address] [place] [address] October, [facility] [address] [place] [id number] [address] [place] [address] October, [facility] [address] [facility] [id number] [address] [place] [address] October, Bipolar 1 disorder, mixed F3 1.60 [facility] [address] [place] [id number] [address] [place] [address] Sep, Bipolar 1 disorder, mixed F3 1.60 [facility] [address] [place] [id number] [address] [place] [address] Sep, Other chronic pain G89.29 [facility] [address] [place] [id number] [address] [place] [address] Sep, [facility] [address] [facility] [id number] [address] [place] [address] Sep, Bipolar 1 disorder, mixed F3 1.60 [facility] [address] [facility] [id number] [address] [place] [address] Sep, Allergic rhinitis J30.9 and Sciatica of left side M54.32 [facility] [address] [place] [id number] [address] [place] [address] Sep, Bipolar 1 disorder, mixed F3 1.60 [facility] [address] [place] [id number] [address] [place] [address] Sep, Bipolar 1 disorder, mixed F3 1.60 and Generalized anxiety disorder F41.1 [facility] [address] [place] [id number] [address] [place] [address] Aug, [facility] [address] [place] [id number] [address] [place] [address] Aug, Bipolar 1 disorder, mixed F3 1.60 [facility] [address] [place] [id number] [address] [place] [address] Aug, Bipolar 1 disorder, mixed F3 1.60 [facility] [address] [place] [id number] [address] [place] [address] Aug, [facility] [address] [place] [id number] [address] [place] [address] Aug, Generalized anxiety disorder F41.1 [facility] [address] [place] [id number] [address] [place] [address] Aug, Bipolar 1 disorder, mixed F3 1.60 [facility] [address] [place] [id number] [address] [place] [address] Aug, Plantar wart of right foot B 07.0 [facility] [address] [place] [id number] [address] [place] [address] Aug, Bipolar 1 disorder, mixed F3 1.60 [facility] [address] [facility] [id number] [address] [place] [address] Jul, Bipolar 1 disorder, mixed F3 1.60 [facility] [address] [facility] [id number] [address] [place] [address] Jul, [facility] [address] [facility] [id number] [address] [place] [address] Jul, Bipolar 1 disorder, mixed F3 1.60 [facility] [address] [facility] [id number] [address] [place] [address] 09 Jul, 2017 Generalized anxiety disorder F41.1 [facility] [address] [facility] [id number] [address] [place] [address] 07 Jul, 2017 Bipolar 1 disorder, mixed F3 1.60 [facility] [address] [facility] [id number] [address] [place] [address] 07 Jul, 2017 Acute left-sided low back pa in with left-sided sciatica M54.42 [facility] [address] [facility] [id number] [address] [place] [address] 05 Jul, 2017 Coccydynia M53.3 [facility] [address] [facility] [id number] [address] [place] [address] Jun, Bipolar 1 disorder, mixed F3 1.60 [facility] [address] [facility] [id number] [address] [place] [address] Jun, Acute nasopharyngitis J00 [facility] [address] [facility] [id number] [address] [place] [address] Jun, Bipolar 1 disorder, mixed F3 1.60 [facility] [address] [facility] [id number] [address] [place] [address] Jun, Fibromyalgia M79.7 [facility] [address] [facility] [id number] [address] [place] [address] Jun, Bipolar 1 disorder, mixed F3 1.60 [place] [id number] [place] [address] 08 Jun, 2017 Fibromyalgia M79.7 and Bipol ar 1 disorder, mixed F31.60 [place] [address] [address] May, Bipolar 1 disorder, mixed F3 1.60 ; Generalized anxiety disorder F41.1 and Other alf (current) drug therapy Z79.899 [place] [address] [address] May, Bipolar 1 disorder, mixed F3 1.60 [facility] [address] 14 May, 2017 Cough R05 and Body aches R52 [facility] [place] [address] [address] 10 May, 2017 Bladder spasm N32.89 and Acu te cystitis without hematuria N30.00 [place] [address] [address] 07 May, 2017 Bipolar 1 disorder, mixed F3 1.60 [place] [address] [address] 30 Apr, 2017 [place] [address] [address] Apr, Major depressive disorder, r ecurrent episode, moderate F33.1 and Encounter for immunization Z23 [place] [address] [place] [id number] [address] [place] [address] Apr, Bipolar 1 disorder, mixed F3 1.60 [place] [address] [address] Apr, Bipolar 1 disorder, mixed F3 1.60 [place] [address] [address] 16 Apr, 2017 Bipolar 1 disorder, mixed F3 1.60 [place] [address] [place] [id number] [address] [place] [address] Apr, Yeast vaginitis B37.3 [facility] [address] [place] [id number] [address] [place] [address] Apr, Bipolar 1 disorder, mixed F3 1.60 [facility] [address] [place] [id number] [address] [place] [address] Apr, Encounter for immunization Z 23 and Cellulitis L03.90 [facility] [address] [place] [id number] [address] [place] [address] Apr, Bipolar 1 disorder, mixed F3 1.60 [place] [address] [place] [id number] [address] [place] [address] Mar, Bipolar 1 disorder, mixed F3 1.60 [place] [address] [address] Mar, Bipolar 1 disorder, mixed F3 1.60 [facility] [address] [place] [id number] [address] [place] [address] Mar, Imbalance R26.89 and Encount er for immunization Z23 [facility] [address] [place] [id number] [address] [place] [address] Mar, Generalized anxiety disorder F41.1 [place] [address] [place] [id number] [address] [place] [address] Mar, Bipolar 1 disorder, mixed F3 1.60 [facility] [address] [place] [id number] [address] [place] [address] Mar, Generalized anxiety disorder F41.1 [place] [address] [place] [id number] [address] [place] [address] Mar, Bipolar 1 disorder, mixed F3 1.60 [place] [address] [place] [id number] [address] [place] [address] Mar, Bipolar 1 disorder, mixed F3 1.60 [place] [address] [place] [id number] [place] [address] 27 Feb, 2017 Bipolar 1 disorder, mixed F3 1.60 [facility] [address] [place] [id number] [address] [place] [address] 25 Feb, 2017 Bipolar 1 disorder, mixed F3 1.60 and Generalized anxiety disorder F41.1 [facility] [address] [place] [id number] [place] [address] Feb, Gastritis without bleeding, unspecified chronicity, unspecified gastritis type K29.70 ; Hammer toe of right foot M20.41 and Other viral warts B07.8 [place] [address] [address] 20 Feb, 2017 Bipolar 1 disorder, mixed F3 1.60 [place] [address] [place] [id number] [place] [address] 13 Feb, 2017 Bipolar 1 disorder, mixed F3 1.60 [place] [address] [address] 05 Feb, 2017 Bipolar 1 disorder, mixed F3 1.60 [place] [address] [address] Jan, Encounter for screening mamm ogram for breast cancer Z12.31 ; Other viral warts B07.8 and Allergic rhinitis J30.9 [place] [address] [place] [address] Jan, Bipolar 1 disorder, mixed F3 1.60 [place] [address] [place] [id number] [address] [place] [address] Jan, Bipolar 1 disorder, mixed F3 1.60 [place] [address] [place] [id number] [place] [address] Jan, [place] [address] [place] [id number] [address] [place] [address] Jan, Bipolar 1 disorder, mixed F3 1.60 [place] [address] [address] Jan, Bipolar 1 disorder, mixed F3 1.60 [place] [address] [address] Jan, Allergic rhinitis J30.9 ; He maturia R31.9 and Colon cancer screening Z12.11 [place] [address] [address] Dec, Bipolar 1 disorder, mixed F3 1.60 [place] [address] [address] Dec, Bipolar 1 disorder, mixed F3 1.60 ; Generalized anxiety disorder F41.1 and 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 [place] [address] [address] Dec, Bipolar 1 disorder, mixed F3 1.60 [place] [address] [address] Dec, Bipolar 1 disorder, mixed F3 1.60 [place] [address] [address] Dec, Bipolar 1 disorder, mixed F3 1.60 [place] [address] [address] Dec, Low back pain M54.5 and Recu rrent urinary tract infection N39.0 [place] [address] [address] Nov, Bipolar 1 disorder, mixed F3 1.60 [place] [address] [address] Nov, Bipolar 1 disorder, mixed F3 1.60 [place] [address] [address] Nov, Bipolar 1 disorder, mixed F3 1.60 [place] [address] [address] Nov, Bipolar 1 disorder, mixed F3 1.60 [place] [address] [address] Nov, [place] [address] [place] [id number] Nov, Anesthesia of skin R20.0 ; F requent UTI N39.0 ; Tobacco abuse Z72.0 and Colon cancer screening Z12.11 [place] [address] [address] Nov, Bipolar 1 disorder, mixed F3 1.60 [place] [address] [place] [id number] October, Bipolar 1 disorder, mixed F3 1.60 [place] [address] [address] October, Bipolar 1 disorder, mixed F3 1.60 [place] [address] [address] October, Bipolar 1 disorder, mixed F3 1.60 [place] [address] [address] October, Bipolar 1 disorder, mixed F3 1.60 [place] [address] [address] October, Bipolar 1 disorder, mixed F3 1.60 [place] [address] [address] October, Cervicalgia M54.2 and Bipola r 1 disorder, mixed F31.[address] [address] October, Hypertension I10 ; Hyperlipi demia, unspecified hyperlipidemia type E78.5 and Family history of thyroid disease Z83.[address] [address] October, [place] [address] [address] October, Hypertension I10 ; Hyperlipi demia, unspecified hyperlipidemia type E78.5 and Family history of thyroid problem Z83.49 [place] [address] [place] [id number] [address] [place] [address] October, Bipolar 1 disorder, mixed F3 1.60 [place] [address] [address] Sep, Bipolar 1 disorder, mixed F3 1.60 [place] [address] [address] Sep, Bipolar 1 disorder, mixed F3 1.60 [place] [address] [address] Sep, Bipolar 1 disorder, mixed F3 1.60 [place] [address] [address] Sep, History of colon polyps Z86. 010 and Hematochezia K92.1 [place] [address] [address] Sep, Major depressive disorder, r ecurrent episode, moderate F33.1 [place] [address] [address] Sep, Bipolar 1 disorder, mixed F3 1.60 [place] [address] [place] [id number] [address] [place] [address] Aug, Hot flashes due to menopause N95.1 [place] [address] [address] Aug, Bipolar 1 disorder, mixed F3 1.60 [place] [address] [address] Aug, [place] [address] [address] Aug, Bipolar 1 disorder, mixed F3 1.60 [place] [address] [address] Aug, Bipolar 1 disorder, mixed F3 1.60 [place] [address] [address] Aug, Hot flashes due to menopause N95.1 ; Cervicalgia M54.2 and Ataxia R27.0 [place] [address] [address] Jul, Bipolar 1 disorder, mixed F3 1.60 [place] [address] Jul, Bipolar 1 disorder, mixed F3 1.60 [place] [address] [address] Jul, Bipolar 1 disorder, mixed F3 1.60 [place] [address] [address] Jul, Bipolar 1 disorder, mixed F3 1.60 [place] [address] [address] Jul, Bipolar 1 disorder, mixed F3 1.60 [place] [address] [address] Jul, Cervicalgia M54.2 ; Tremor R 25.1 ; Hearing abnormally acute, unspecified laterality H93.239 ; Alopecia L65.9 ; Encounter for immunization Z23 and Family history of thyroid disease Z83.49 [place] [address] [place] [id number] Jul, Bipolar 1 disorder, mixed F3 1.60 [place] [address] [address] Jun, [place] [address] [place] [address] Jun, Hearing disorder, unspecifie d laterality H93.299 [facility] [address] [id number] [address] [place], [place] [address] Jun, Bipolar 1 disorder, mixed F3 1.60 [facility] [address] [id number] [address] [place] [address] Jun, Bipolar 1 disorder, mixed F3 1.60 [facility] [address] [id number] [address] [place] [address] Jun, Allergic rhinitis J30.9 [facility] [address] [id number] [address] [place] [address] Jun, Bipolar 1 disorder, mixed F3 1.60 [facility] [address] [facility] [id number] [address] [place] [address] Jun, Bipolar 1 disorder, mixed F3 1.60 [facility] [address] [facility] [id number] [address] [place] [address] Jun, Allergic rhinitis J30.9 [facility] [address] [id number] [address] [place] [address] Jun, Allergic rhinitis J30.9 [facility] [address] [id number] [address] [place] [address] Jun, Bipolar 1 disorder, mixed F3 1.60 [facility] [address] [facility] [id number] [address] [place] [address] May, Bipolar 1 disorder, mixed F3 1.60 [facility] [address] [id number] [address] [place] [address] May, Bipolar 1 disorder, mixed F3 1.60 [facility] [address] [facility] [id number] [address] [place] [address] May, [facility] [address] [facility] [id number] [address] [place] [address] May, Bipolar 1 disorder, mixed F3 1.60 [facility] [address] [facility] [id number] [address] [place] [address] May, Bipolar 1 disorder, mixed F3 1.60 [facility] [address] [facility] [id number] [address] [place] [address] May, [facility] [address] [facility] [id number] [address] [place] [address] May, [facility] [address] [facility] [id number] [address] [place] [address] May, [facility] [address] [facility] [id number] [address] [place] [address] May, Abdominal pain, unspecified location R10.9 [facility] [address] [facility] [id number] [address] [place] [address] May, [facility] [address] [place] [id number] [place] [address] Apr, Hematuria R31.9 ; Ataxia R27 .0 and Hearing loss, unspecified laterality H91.90 [facility] [address] [facility] [id number] [address] [place] [address] Apr, Bipolar 1 disorder, mixed F3 1.60 [facility] [address] [facility] [id number] [address] [place] [address] Apr, Acute effusion of both middl e ears H65.193 [facility] [address] [facility] [id number] [address] [place] [address] Apr, Hematuria R31.9 and Pyelonep hritis N12 [facility] [address] [facility] [id number] [address] [place] [address] Apr, [facility] [address] [facility] [id number] [address] [place] [address] Mar, Bipolar 1 disorder, mixed F3 1.60 [facility] [address] [facility] [id number] [address] [place] [address] Mar, [place] [address] [place] [id number] [address] [place] [address] Mar, Bipolar 1 disorder, mixed F3 1.60 [place] [address] [place] [id number] [address] [place] [address] Mar, Bipolar 1 disorder, mixed F3 1.60 [place] [address] [place] [id number] Mar, Encounter for immunization Z 23 and Gastritis without bleeding, unspecified chronicity, unspecified gastritis type K29.70 [place] [address] [place] [id number] [address] [place] [id number] Mar, Bipolar 1 disorder, mixed F3 1.60 and Grief F43.20 [place] [address] [place] [id number] Mar, Gastritis without bleeding, unspecified chronicity, unspecified gastritis type K29.70 [place] [address] [place] [id number] [address] [place] [id number] Mar, Bipolar 1 disorder, mixed F3 1.60 [place] [address] [place] [id number] [address] [place], [place] [address] Mar, Gastritis without bleeding, unspecified chronicity, unspecified gastritis type K29.70 [place] [address] [place] [id number] Mar, [place] [address] [place] [id number] [address] [place], [place] [id number] Feb, Bipolar 1 disorder, mixed F3 1.60 [place] [address] [place] [id number] [address] [place], [place] [id number] Feb, Bipolar 1 disorder, mixed F3 1.60 and Grief F43.20 [place] [address] [place] [id number] [address] [place] [id number] Feb, Gastritis without bleeding, unspecified chronicity, unspecified gastritis type K29.70 [place] [address] [facility] [id number] [address] [place] [id number] 14 Feb, 2016 Bipolar 1 disorder, mixed F3 1.60 [facility] [address] [facility] [id number] [address] [place], [place] [id number] Feb, Gastroesophageal reflux dise ase, esophagitis presence not specified K21.9 [facility] [address] [facility] [id number] [address] [place] [address] Jan, Bipolar 1 disorder, mixed F3 1.60 [facility] [address] [facility] [id number] [address] [place] [id number] Jan, Bipolar 1 disorder, mixed F3 1.60 and Unsteady gait R26.81 [facility] [address] [id number] [address] [place] [address] Jan, Bipolar 1 disorder, mixed F3 1.60 [facility] [address] [id number] [address] [place] [address] Jan, Bipolar 1 disorder, mixed F3 1.60 and 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 [place] [address] [id number] [address] [place] [address] Jan, Bipolar 1 disorder, mixed F3 1.60 [facility] [address] [id number] [address] [place] [address] Jan, Bipolar 1 disorder, mixed F3 1.60 [facility] [address] [id number] [address] [place], [place] [address] Jan, Bipolar 1 disorder, mixed F3 1.60 ; Grief F43.20 and Other alf (current) drug therapy Z79.899 [facility] [address] [id number] [address] [place] [address] Jan, Bipolar 1 disorder, mixed F3 1.60 [facility] [address] [id number] [address] [place] [address] Dec, [facility] [address] [id number] [address] [place] [address] Dec, Bipolar 1 disorder, mixed F3 1.60 ; Vitamin D deficiency, unspecified E55.9 ; H/O allergic rhinitis Z87.09 ; Other chronic pain G89.29 and Dorsalgia, unspecified M54.9 [facility] [address] [facility] [id number] [address] [place] [address] Dec, [facility] [address] [id number] [address] [place] [address] Dec, Bipolar 1 disorder, mixed F3 1.60 [facility] [address] [id number] [address] [place] [address] Dec, Major depressive disorder, r ecurrent episode, moderate F33.1 [place] [address] [id number] [address] [place] [address] Dec, Major depressive disorder, r ecurrent episode, moderate F33.1 [place] [id number] [place] [address] Nov, [place] [address] [id number] [address] [place] [address] Nov, Bipolar 1 disorder, mixed F3 1.60 [place] [address] [id number] [address] [place] [address] Nov, Major depressive disorder, r ecurrent episode, moderate F33.1 [place] [address] [id number] [address] [place] [address] Nov, Cervicalgia M54.2 ; Arthralg ia of hip, unspecified laterality M25.559 ; Allergic rhinitis J30.9 and Hormone replacement therapy Z79.890 [facility] [address] [facility] [id number] [address] [place] [address] Nov, Other seasonal allergic rhin itis J30.2 [facility] [address] [id number] [address] [place] [address] October, Major depressive disorder, r ecurrent episode, moderate F33.1 [place] [address] [facility] [id number] [address] [place] [address] October, Major depressive disorder, r ecurrent episode, moderate F33.1 and Arthralgia of hip, unspecified laterality M25.559 [place] [address] [facility] [id number] [address] [place] [address] October, Grief F43.20 ; Hypertension I10 ; Hyperlipidemia, unspecified hyperlipidemia type E78.5 ; Other chronic pain G89.29 and Allergic rhinitis, unspecified allergic rhinitis type J30.9 [place] [address] [facility] [id number] [address] [place] [address] October, Major depressive disorder, r ecurrent episode, moderate F33.1 [place] [address] [id number] [address] [place] [address] Sep, Major depressive disorder, r ecurrent episode, moderate F33.1 [place] [address] [facility] [id number] [address] [place] [address] Sep, [place] [address] [facility] [id number] [address] [place] [address] Sep, Major depressive disorder, r ecurrent episode, moderate F33.1 [place] [address] [id number] [address] [place] [address] Sep, Grief F43.20 [place] [address] [id number] [address] [place] [address] Aug, Major depressive disorder, r ecurrent episode, moderate F33.1 [place] [address] [facility] [id number] [address] [place] [address] Aug, Bipolar 1 disorder, mixed F3 1.60 [place] [address] [facility] [id number] [address] [place] [address] Aug, Allergic rhinitis J30.9 ; Ce rvicalgia M54.2 and Low back pain M54.5 [place] [address] [facility] [id number] [address] [place] [address] Aug, Major depressive disorder, r ecurrent episode, moderate F33.1 [facility] [address] [facility] [id number] [address] [place] [address] Aug, Sinusitis J32.9 and Tobacco 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 [facility] [address] [facility] [id number] [address] [place] [address] Aug, [facility] [id number] [place] [address] Aug, Depressive disorder, not els ewhere classified F32.9 ; Hormone replacement therapy Z79.[address] scan, head R93.0 [facility] [address] [id number] [address] [place] [address] Aug, Major depressive disorder, r ecurrent episode, moderate F33.1 [facility] [address] [id number] [address] [place] [address] Jul, Major depressive disorder, r ecurrent episode, moderate F33.1 [facility] [address] [facility] [id number] [address] [place] [address] Jul, Abdominal pain R10.9 and Hyp ertension I10 [facility] [address] [id number] [address] [place] [address] Jul, [facility] [address] [id number] [address] [place] [address] Jul, Major depressive disorder, r ecurrent episode, moderate F33.1 [facility] [address] [facility] [id number] [address] [place] [address] Jul, [facility] [address] [id number] [address] [place] [address] Jul, [facility] [address] [id number] [address] [place] [address] Jun, [place] [address] [id number] [address] [place] [address] Jun, Depressive disorder, not els ewhere classified F32.9 [facility] [address] [id number] [address] [place] [address] Jun, [facility] [address] [facility] [id number] [address] [place] [address] Jun, [facility] [address] [id number] [address] [place] [address] Jun, Arthralgia of hip, unspecifi ed laterality M25.559 ; Bruising, spontaneous R23.3 and Night sweats R61 [facility] [address] [id number] [address] [place] [address] Jun, [facility] [address] [facility] [id number] [address] [place] [address] Jun, [facility] [address] [facility] [id number] [address] [place] [address] May, [facility] [address] [facility] [id number] [address] [place] [address] May, Myalgia M79.1 and Screening, lipid Z13.220 [facility] [address] [facility] [id number] [address] [place] [address] Apr, Status post cervical spinal fusion Z98.1 ; Fibromyalgia M79.7 and Unsteady gait R26.81 [facility] [address] [id number] [address] [place] [address] Nov, [facility] [address] [facility] [id number] [address] [place] [address] Nov, [facility] [address] [facility] [id number] [address] [place] [address] October, [facility] [address] [facility] [id number] [address] [place] [address] October, [facility] [address] [id number] [address] [place] [address] October, [facility] [address] [id number] [address] [place] [address] October, [facility] [address] [id number] [address] [place] [address] October, [facility] [address] [id number] [address] [place] [address] October, Dysuria 788.1 ; Nausea 787.0 2 and Urinary tract infection 599.0 [facility] [address] [id number] [address] [place] [address] Sep, [facility] [address] [id number] [address] [place] [address] Sep, [facility] [address] [id number] [address] [place] [address] Aug, [facility] [address] [id number] [address] [place] [address] Aug, [facility] [address] [id number] [address] [place] [address] Aug, [facility] [address] [id number] [address] [place] [address] Aug, [facility] [address] [id number] [address] [place] [address] Aug, [facility] [address] [id number] [address] [place] [address] Aug, [facility] [address] [id number] [address] [place] [address] Aug, [facility] [address] [id number] [address] [place] [address] Aug, [facility] [address] [id number] [address] [place] [address] Aug, [facility] [address] [id number] [facility] [place] [address] 18 Aug, 2014 [facility] [address] [id number] [address] [place] [address], [place] [address] 18 Aug, 2014 [facility] [address] [id number] [address] [place] [address], [place] [address] 13 Aug, 2014 [facility] [address] [id number] [address] [place] [address], [place] [address] 13 Aug, 2014 [facility] [address] [id number] [address] [place] [address], [place] [address] 11 Aug, 2014 [facility] [address] [id number] [address] [place] [address], [place] [address] 11 Aug, 2014 [facility] [address] [id number] [address] [place] [address], [place] [address] 06 Aug, 2014 [facility] [address] [id number] [address] [place] [address], [place] [address] Aug, [facility] [address] [id number] [address] [place] [address], [place] [address] 05 Aug, 2014 [facility] [address] [id number] [address] [place] [address], [place] [address] 05 Aug, 2014 [facility] [address] [id number] [address] [place] [address], [place] [address] Aug, [facility] [address] [id number] [address] [place] [address], [place] [address] Aug, [facility] [address] [id number] [address] [place] [address], [place] [address] Aug, [facility] [address] [id number] [address] [place] [address], [place] [address] Jul, [facility] [address] [id number] [address] [place] [address], [place] [address] Jul, [facility] [address] [id number] [address] [place] [address], [place] [address] Jul, 2014 [facility] [address] [id number] [address] [place] [address], [place] [address] Jul, 2014 [facility] [address] [id number] [address] [place] [address], [place] [address] Jul, 2014 [facility] [address] [id number] [address] [place] [address], [place] [address] Jul, 2014 [facility] [address] [id number] [address] [place] [address], [place] [address] Jul, 2014 [facility] [address] [id number] [address] [place] [address], [place] [address] Jul, 2014 [facility] [address] [id number] [address] [place] [address], [place] [address] Jul, 2014 [facility] [address] [id number] [address] [place] [address], [place] [address] Jul, 2014 [facility] [address] [id number] [address] [place] [address], [place] [address] Jul, [facility] [address] [id number] [address] [place] [address], [place] [address] Jul, 2014 [facility] [address] [id number] [address] [place] [address] Jul, [facility] [address] [id number] [address] [place] [address], [place] [address] Jul, [facility] [address] [id number] [address] [place] [address] Jun, [facility] [address] [id number] [address] [place] [address], [place] [address] Jun, [facility] [address] [id number] [address] [place] [address] Jun, [facility] [address] [id number] [address] [place] [id number] Jun, [facility] [address] [id number] [address] [place] [address], [place] [address] Jun, [facility] [address] [id number] [address] [place] [address], [place] [address] Jun, [facility] [address] [id number] [address] [place] [address], [place] [address] May, [facility] [address] [id number] [address] [place] [address], [place] [address] May, [facility] [address] [id number] [address] [place] [address], [place] [address] May, [facility] [address] [id number] [address] [place] [address], [place] [address] May, [facility] [address] [id number] [address] [place] [address], [place] [address] May, [facility] [address] [id number] [address] [place] [address], [place] [address] May, [facility] [address] [id number] [address] [place] [address], [place] [address] Apr, [facility] [address] [id number] [address] [place] [address], [place] [address] Apr, [facility] [address] [id number] [address] [place] [address], [place] [address] Apr, [facility] [address] [id number] [address] [place] [address] Apr, [facility] [address] [id number] [address] [place] [address], [place] [address] Apr, [facility] [address] [id number] [address] [place] [address], [place] [address] Apr, [facility] [address] [id number] [address] [place] [address], [place] [address] 29 Mar, 2014 [facility] [address] [id number] [address] [place] [address] Mar, [facility] [address] [id number] [address] [place] [address], [place] [address] Mar, 2013 [facility] [address] [id number] [address] [place] [address] Mar, 2013 [facility] [address] [id number] [address] [place] [address], [place] [address] Mar, 2013 [facility] [address] [id number] [address] [place] [address], [place] [address] Mar, 2013 [facility] [address] [id number] [address] [place] [address], [place] [address] Mar, 2013 [facility] [address] [id number] [address] [place] [address], [place] [address] Mar, 2013 [facility] [address] [id number] [address] [place] [address], [place] [address] Mar, [facility] [address] [id number] [address] [place] [address], [place] [address] Mar, [facility] [address] [id number] [address] [place] [address] Mar, [facility] [address] [id number] [address] [place] [address], [place] [address] Mar, [facility] [address] [id number] [address] [place] [address] 30 Feb, 2013 [facility] [address] [id number] [address] [place] [address] 29 Feb, 2013 [facility] [address] [id number] [address] [place] [address], [place] [address] 29 Feb, 2013 [facility] [address] [id number] [address] [place] [address], [place] [address] 23 Feb, 2013 [facility] [address] [id number] [address] [place] [address], [place] [address] 23 Feb, 2013 [facility] [address] [id number] [facility] [place] [address] Feb, [facility] [address] [id number] [facility] [place] [address] Feb, [facility] [address] [id number] [facility] [place] [address] Jan, [facility] [address] [id number] [address] [place] [address], [place] [address] Jan, [facility] [address] [id number] [address] [place] [address], [place] [address] Jan, [facility] [address] [id number] [address] [place] [address], [place] [address] Dec, [facility] [address] [id number] [address] [place] [address], [place] [address] Dec, [facility] [address] [id number] [address] [place] [address], [place] [address] Dec, [facility] [address] [id number] [address] [place] [address], [place] [address] Dec, [facility] [address] [id number] [address] [place] [address], [place] [address] Sep, [facility] [address] [id number] [address] [place] [address], [place] [address] Sep, [facility] [address] [id number] [address] [place] [address], [place] [address] Sep, [facility] [address] [id number] [address] [place] [address], [place] [address] Sep, [facility] [address] [id number] [address] [place] [address], [place] [address] Sep, [facility] [address] [id number] [address] [place] [address], [place] [address] Sep, [facility] [address] [id number] [address] [place] [address], [place] [address] Sep, [facility] [address] [id number] [address] [place] [address], [place] [address] Sep, [facility] [address] [id number] [address] [place] [address], [place] [address] Aug, [facility] [address] [id number] [address] [place] [address], [place] [address] Aug, [facility] [address] [id number] [address] [place] [address], [place] [address] May, [facility] [address] [id number] [address] [place] [address], [place] [address] May, [facility] [address] [id number] [address] [place] [address], [place] [address] Apr, [facility] [address] [id number] [address] [place] [address], [place] [address] Apr, [facility] [address] [id number] [address] [place] [address], [place] [address] Apr, [facility] [address] [id number] [address] [place] [address], [place] [address] Apr, [facility] [address] [id number] [address] [place] [address], [place] [address] Apr, [facility] [address] [id number] [address] [place] [address], [place] [address] Apr, [facility] [address] [id number] [address] [place] [address], [place] [address] May, [facility] [address] [id number] [address] [place] [address], [place] [address] May, [facility] [address] [id number] [address] [place] [address], [place] [address] May, [facility] [address] [id number] [address] [place] [address], [place] [address] May, [facility] [address] [id number] [address] [place] [address], [place] [address] 13 May, 2012 [facility] [address] [id number] [address] [place] [address], [place] [address] 13 May, 2012 [facility] [address] [id number] [address] [place] [address], [place] [address] 13 Apr, 2012 [facility] [address] [id number] [address] [place] [address], [place] [address] 13 Apr, 2012 [facility] [address] [id number] [address] [place] [address], [place] [address] 08 Apr, 2012 [facility] [address] [id number] [address] [place] [address], [place] [address] 08 Apr, 2012 [facility] [address] [id number] [address] [place] [address], [place] [address] Apr, [facility] [address] [id number] [address] [place] [address], [place] [address] Apr, [facility] [address] [id number] [address] [place] [address], [place] [address] Apr, [facility] [address] [id number] [address] [place] [address], [place] [address] Apr, [facility] [address] [id number] [address] [place] [address], [place] [address] Apr, [facility] [address] [id number] [address] [place] [address], [place] [address] Apr, [facility] [address] [id number] [address] [place] [id number] Mar, [facility] [address] [id number] [address] [place] [address], [place] [address] Mar, [facility] [address] [id number] [address] [place] [address], [place] [address] Mar, [facility] [address] [id number] [address] [place] [id number] Mar, [facility] [address] [id number] [address] [place] [address], [place] [address] Mar, [facility] [address] [id number] [address] [place] [address], [place] [address] Mar, [facility] [address] [id number] [address] [place] [address], [place] [address] Mar, [facility] [address] [id number] [address] [place] [address], [place] [address] Mar, [facility] [address] [id number] [address] [place] [address], [place] [address] Mar, [facility] [address] [id number] [address] [place] [address], [place] [address] Feb, [facility] [address] [id number] [address] [place] [address], [place] [address] 16 Feb, 2012 [facility] [address] [id number] [address] [place] [address], [place] [address] Feb, [facility] [address] [id number] [address] [place] [address], [place] [address] Jan, [facility] [address] [id number] [address] [place] [address], [place] [address] Jan, [facility] [address] [id number] [address] [place] [address], [place] [address] Jan, [facility] [address] [id number] [address] [place] [address], [place] [address] Jan, [facility] [address] [id number] [address] [place] [address], [place] [address] Jan, [facility] [address] [id number] [address] [place] [address], [place] [address] Jan, [facility] [address] [id number] [address] [place] [address], [place] [address] 16 Jan, 2012 [facility] [address] [id number] [address] [place] [address], [place] [address] Jan, [facility] [address] [id number] [address] [place] [address], [place] [address] Jan, [facility] [address] [id number] [address] [place] [address], [place] [address] Jan, [facility] [address] [id number] [address] [place] [address], [place] [address] Dec, [facility] [address] [id number] [address] [place] [address], [place] [address] Dec, [facility] [address] [id number] [address] [place] [address], [place] [address] Dec, [facility] [address] [id number] [address] [place] [address], [place] [address] Dec, [facility] [address] [id number] [address] [place] [address], [place] [address] Nov, [facility] [address] [id number] [address] [place] [address], [place] [address] Nov, [facility] [address] [id number] [address] [place] [address], [place] [address] Nov, [facility] [address] [id number] [address] [place] [address], [place] [phone] October, [facility] [address] [id number] [address] [place] [address], [place] [phone] October, [facility] [address] [id number] [address] [place] [address], [place] [phone] October, [facility] [address] [id number] [address] [place] [address], [place] [phone] October, [facility] [address] [id number] [address] [place] [address], [place] [phone] October, [facility] [address] [id number] [address] [place] [address], [place] [phone] October, [facility] [address] [id number] [address] [place] [id number] Aug, [facility] [address] [id number] [address] [place] [phone] Mar, [facility] [address] [id number] [address] [place] [phone] Nov, [facility] [address] [id number] [address] [place] [phone] May, [facility] [address] [id number] [address] [place] [phone] May, [facility] [address] [id number] [address] [place] [phone] Apr, [facility] [address] [id number] [address] [place] [phone] Mar, [facility] [address] [id number] [address] [place] [phone] Mar, IMMUNIZATIONS No Known Immunizations SOCIAL HISTORY Never Assessed REASON FOR VISIT f/u PLAN OF CARE Activity Details Follow Up 3 Months Reason: f/u VITAL SIGNS Height 64 in 2017-06-13 Weight 160.6 lbs 2017-06-13 Heart Rate 96 bpm 2017-06-13 Respiratory Rate 18 2017-06-13 BMI 27.56 kg/m2 2017-06-13 Blood pressure systolic 120 mmHg 2017-06-13 Blood pressure diastolic 82 mmHg 2017-06-13 MEDICATIONS Medication Instructions Dosage Frequency Start Date End Date Duration S tatus Fetzima 120 mg Orally Once a day TAKE 1 CAPSULE BY MOUTH DAILY 24h Active Depakote ER 500 MG Orally at bedtime 2 tabs Active Vitamin D3 2000 UNIT Orally Once a day as directed 24h Dec, Active HydrOXYzine HCl 10 MG Orally BID prn anxiety, MAX 45 tabs monthly 1 t ablet Active Flexeril 10 mg by oral route 2 times a day 1 tablet 12h 18 Aug, 2014 30 Active Ibuprofen 200 MG Orally every 6 hrs 1 tablet as needed 6h Not-Taking Magnesium 500 MG Orally Once a day 1 tablet with a meal 24h Dec, Active Cetirizine HCl 10 mg Orally Once a day 1 tablet 24h Jan, 7 Jan, 90 days Active Myrbetriq 50 MG Orally Once a day 1 tablet 24h Active Probiotic Acidophilus Ac tive Estradiol 2 MG Orally Once a day 1 tablet 24h Active [id number] 1 MG Active Multi Vitamin Daily Orally Once a day 1 tablet 24h Active Vagifem 10 MCG Vaginal Two times a Week 1 tablet Active Pantoprazole Sodium 20 MG TAKE 1 TABLET BY MOUTH ONCE DAILY 30 Active Diflucan 150 MG Orally Once a day 1 tablet and may repeat in 3 days 24h 13 Apr, 2017 Not-Taking Mucinex 600 MG Orally every 12 hrs 1 tablet as needed 12h Not-Taking Melatonin 5 mg Orally Once a day 2 tablets 24h 27 May, 2017 30 day(s) Active Flonase 50 MCG/ACT Nasally twice a day 1 spray in each nostril 12h Jan, Active Selenium 50 MCG Orally Once a day 1 tablet 24h Not-Taking Voltaren 1 % Transdermal 4 times a day on neck Active RESULTS No Results PROCEDURES Procedure Date Ordered Result Body Site [facility] VISIT ESTABLISHED PATIENT Jun 13, 2017 INSTRUCTIONS MEDICATIONS ADMINISTERED No Known Medications MEDICAL (GENERAL) HISTORY Type Description Date Medical History Severe spinal stenosis throu cervical spine CT and MRI done 10/2014 at [facility] with Neurosurgery at Medical History Migraine BEAR [...]
--- OUTSIDE RECORDS SUMMARY | 2019-06-19 05:53 | XMS REPORT ---
Author Author Sydnie SQUIRES Organization [facility] Address [address] [place] [address] Care Team Providers Care Inside Sales Assistant Name Role Phone MIRIAN SQUIRES Unavailable PROBLEMS Type Condition ICD9-CM Code [id number] Code Onset Dates Condition S tatus SNOMED Code Problem Hormone replacement therapy Z79.890 Ac tive 892238140 Problem Abnormal CT scan, head R93.0 Active 305030096 Problem Sensorineural hearing loss (SNHL) of both ears H90 .3 Active 624728752 Problem History of colon polyps Z86.010 Active 651614666 Problem Bruising, spontaneous R23.3 Active 565428396 Problem Generalized anxiety disorder F41.1 A ctive 80590286 Problem Arthralgia of hip, unspecified laterality M25.559 Active 15992306 Problem Hematuria, unspecified type R31.9 Ac tive 17913436 Problem Imbalance R26.89 Active 051069418 Problem Hammer toe of right foot M20.41 Activ e 153884607 Problem Plantar wart of right foot B07.0 Act mitchell [id number] Problem Sciatica of left side M54.32 Active 43813000 Problem Hyperlipidemia, unspecified hyperlipidemia type E7 8.5 Active 68568602 Problem Hypertension I10 Active 6708056 3 Problem Night sweats R61 Active 3453175 0 Problem Fibromyalgia M79.7 Active 3151806 7 Problem Major depressive disorder, recurrent episode, moderate F33.1 Active 869233846 Problem Acute left-sided low back pain with left-sided sciatica M54.42 Active 499269758 Problem Bladder spasm N32.89 Active 626030 006 Problem Gastritis without bleeding, unspecified chronicity, unspecified gastritis type K29.70 Active 605003498 Problem Bipolar 1 disorder, mixed F31.60 Acti ve 74946645 Problem Grief F43.20 Active 21514023 Problem Other chronic pain G89.29 Active 8 5282094 Problem Allergic rhinitis J30.9 Active 61 890955 Problem Hot flashes due to menopause N95.1 A ctive 137203201 Problem Ataxia R27.0 Active 90921915 Problem Hearing loss, unspecified laterality H91.90 Active 93886265 ALLERGIES Substance Reaction Event Type Date Status Morphine Sulfate Unknown Drug Allergy Feb, Active Iodine Unknown Drug Allergy Feb, Active Cipro burning stomach Drug Allergy Feb, Active Lyrica 75 Mg Capsule "felt weird" Non Drug Allergy Feb, Act mitchell ENCOUNTERS Encounter Location Date Diagnosis [facility] [address] [facility] [id number] [address] [place] [address] Dec, [facility] [address] [facility] [id number] [address] [place] [address] Nov, [facility] [address] [facility] [id number] [address] [place] [address] October, [facility] [address] [facility] [id number] [address] [place] [address] October, [facility] [address] [facility] [id number] [address] [place] [address] October, [facility] [address] [facility] [id number] [address] [place] [address] October, [facility] [address] [facility] [id number] [address] [place] [address] October, Bipolar 1 disorder, mixed F3 1.60 [facility] [address] [facility] [id number] [address] [place] [address] Sep, Bipolar 1 disorder, mixed F3 1.60 [facility] [address] [id number] [address] [place] [address] Sep, Other chronic pain G89.29 [facility] [address] [id number] [address] [place] [address] Sep, [facility] [address] [facility] [id number] [address] [place] [address] Sep, Bipolar 1 disorder, mixed F3 1.60 [facility] [address] [id number] [address] [place] [address] Sep, Allergic rhinitis J30.9 and Sciatica of left side M54.32 [facility] [address] [id number] [address] [place] [address] Sep, Bipolar 1 disorder, mixed F3 1.60 [facility] [address] [facility] [id number] [address] [place] [address] Sep, Bipolar 1 disorder, mixed F3 1.60 and Generalized anxiety disorder F41.1 [facility] [address] [id number] [address] [place] [address] Aug, [facility] [address] [facility] [id number] [address] [place] [address] Aug, Bipolar 1 disorder, mixed F3 1.60 [facility] [address] [facility] [id number] [address] [place] [address] Aug, Bipolar 1 disorder, mixed F3 1.60 [facility] [address] [facility] [id number] [address] [place] [address] Aug, [facility] [address] [facility] [id number] [address] [place] [address] Aug, Generalized anxiety disorder F41.1 [facility] [address] [facility] [id number] [address] [place] [address] Aug, Bipolar 1 disorder, mixed F3 1.60 [facility] [address] [facility] [id number] [address] [place] [address] Aug, Plantar wart of right foot B 07.0 [facility] [address] [facility] [id number] [address] [place] [address] Aug, Bipolar 1 disorder, mixed F3 1.60 [facility] [address] [facility] [id number] [address] [place] [address] Jul, Bipolar 1 disorder, mixed F3 1.60 [facility] [address] [facility] [id number] [address] [place] [address] Jul, [facility] [address] [place] [id number] [address] [place] [address] 14 Jul, 2017 Bipolar 1 disorder, mixed F3 1.60 [facility] [address] [place] [id number] [address] [place] [address] 09 Jul, 2017 Generalized anxiety disorder F41.1 [facility] [address] [place] [id number] [address] [place] [address] 07 Jul, 2017 Bipolar 1 disorder, mixed F3 1.60 [place] [address] [place] [id number] [place] [address] 07 Jul, 2017 Acute left-sided low back pa in with left-sided sciatica M54.42 [facility] [address] [place] [id number] [address] [place] [address] 05 Jul, [address] [facility] [address] [place] [id number] [address] [place] [address] Jun, Bipolar 1 disorder, mixed F3 1.60 [facility] [address] [place] [id number] [address] [place] [address] Jun, Acute nasopharyngitis J00 [facility] [address] [place] [id number] [address] [place] [address] Jun, Bipolar 1 disorder, mixed F3 1.60 [facility] [address] [facility] [id number] [address] [place] [address] Jun, Fibromyalgia M79.7 [facility] [address] [place] [id number] [address] [place] [address] Jun, Bipolar 1 disorder, mixed F3 1.60 [facility] [address] [facility] [id number] [address] [place] [address] Jun, Fibromyalgia M79.7 and Bipol ar 1 disorder, mixed F31.60 [facility] [address] [address] May, Bipolar 1 disorder, mixed F3 1.60 ; Generalized anxiety disorder F41.1 and Other custodial (current) drug therapy Z79.899 [place] [address] [address] May, Bipolar 1 disorder, mixed F3 1.60 [facility] [address] [address] 14 May, 2017 Cough R05 and Body aches R52 [facility] [address] [address] 10 May, 2017 Bladder spasm N32.89 and Acu te cystitis without hematuria N30.00 [place] [address] [address] 07 May, 2017 Bipolar 1 disorder, mixed F3 1.60 [place] [address] [address] 30 Apr, 2017 [place] [address] [address] Apr, Major depressive disorder, r ecurrent episode, moderate F33.1 and Encounter for immunization Z23 [place] [address] [address] Apr, Bipolar 1 disorder, mixed F3 1.60 [place] [address] [address] Apr, Bipolar 1 disorder, mixed F3 1.60 [place] [address] [address] 16 Apr, 2017 Bipolar 1 disorder, mixed F3 1.60 [place] [address] [address] 13 Apr, 2017 Yeast vaginitis B37.3 [place] [address] [address] Apr, Bipolar 1 disorder, mixed F3 1.60 [facility] [address] [facility] [id number] [address] [place] [address] Apr, Encounter for immunization Z [address] [facility] [address] [place] [id number] [address] [place] [address] Apr, Bipolar 1 disorder, mixed F3 1.60 [facility] [address] [place] [id number] [address] [place] [address] Mar, Bipolar 1 disorder, mixed F3 1.60 [facility] [address] [address] Mar, Bipolar 1 disorder, mixed F3 1.60 [facility] [address] [place] [id number] [place] [address] Mar, Imbalance R26.89 and Encount er for immunization Z23 [facility] [address] [place] [id number] [address] [place] [address] Mar, Generalized anxiety disorder F41.1 [facility] [address] [address] Mar, Bipolar 1 disorder, mixed F3 1.60 [facility] [address] [place] [id number] [address] [place] [address] Mar, Generalized anxiety disorder F41.1 [facility] [address] [place] [id number] [address] [place] [address] Mar, Bipolar 1 disorder, mixed F3 1.60 [facility] [address] [place] [id number] [address] [place] [address] Mar, Bipolar 1 disorder, mixed F3 1.60 [facility] [address] [place] [id number] [address] [place] [address] Feb, Bipolar 1 disorder, mixed F3 1.60 [facility] [address] [place] [id number] [address] [place] [address] Feb, Bipolar 1 disorder, mixed F3 1.60 and Generalized anxiety disorder F41.1 [place] [address] [address] Feb, Gastritis without bleeding, unspecified chronicity, unspecified gastritis type K29.70 ; Hammer toe of right foot M20.41 and Other viral warts B07.8 [place] [address] [address] Feb, Bipolar 1 disorder, mixed F3 1.60 [place] [address] [address] Feb, Bipolar 1 disorder, mixed F3 1.60 [place] [address] [address] Feb, Bipolar 1 disorder, mixed F3 1.60 [place] [address] [address] Jan, Encounter for screening mamm ogram for breast cancer Z12.31 ; Other viral warts B07.8 and Allergic rhinitis J30.9 [place] [address] [address] Jan, Bipolar 1 disorder, mixed F3 1.60 [place] [address] [place] [id number] [address] [place] [address] Jan, Bipolar 1 disorder, mixed F3 1.60 [place] [address] [place] [id number] [address] [place] [address] Jan, [place] [address] [place] [id number] [address] [place] [address] Jan, Bipolar 1 disorder, mixed F3 1.60 [place] [address] [place] [id number] [address] [place] [address] Jan, Bipolar 1 disorder, mixed F3 1.60 [place] [address] [place] [id number] [address] [place] [address] Jan, Allergic rhinitis J30.9 ; He maturia R31.9 and Colon cancer screening Z12.11 [facility] [address] [place] [id number] [address] [place] [address] Dec, Bipolar 1 disorder, mixed F3 1.60 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 [address] [place] [id number] [address] [place] [address] Dec, Bipolar 1 disorder, mixed F3 1.60 [place] [address] [place] [id number] [address] [place] [address] Dec, Bipolar 1 disorder, mixed F3 1.60 [place] [address] [place] [id number] [address] [place] [address] Dec, Bipolar 1 disorder, mixed F3 1.60 [place] [address] [place] [id number] [address] [place] [address] Dec, Low back pain M54.5 and Recu rrent urinary tract infection N39.0 [facility] [address] [place] [id number] [address] [place] [address] Nov, Bipolar 1 disorder, mixed F3 1.60 [place] [id number] [place] [id number] [address] [place] [address] Nov, Bipolar 1 disorder, mixed F3 1.60 [place] [address] [place] [id number] [address] [place] [address] Nov, Bipolar 1 disorder, mixed F3 1.60 [place] [address] [place] [id number] [address] [place] [address] Nov, Bipolar 1 disorder, mixed F3 1.60 [place] [address] [place] [id number] [address] [place] [address] Nov, [place] [id number] [address] Nov, Anesthesia of skin R20.0 ; F requent UTI N39.0 ; Tobacco abuse Z72.0 and Colon cancer screening Z12.11 [place] [address] [address] Nov, Bipolar 1 disorder, mixed F3 1.60 [place] [address] [address] October, Bipolar 1 disorder, mixed F3 1.60 [place] [address] October, Bipolar 1 disorder, mixed F3 1.60 [place] [address] [address] October, Bipolar 1 disorder, mixed F3 1.60 [place] [address] [address] October, Bipolar 1 disorder, mixed F3 1.60 [place] [address] [address] October, Bipolar 1 disorder, mixed F3 1.60 [place] [address] [address] October, Cervicalgia M54.2 and Bipola r 1 disorder, mixed F31.60 [place] [address] [address] October, Hypertension I10 ; Hyperlipi demia, unspecified hyperlipidemia type E78.5 and Family history of thyroid disease Z83.49 [place] [address] [address] October, [place] [address] [address] October, Hypertension I10 ; Hyperlipi demia, unspecified hyperlipidemia type E78.5 and Family history of thyroid problem Z83.49 [facility] [address] [address] October, Bipolar 1 disorder, mixed F3 1.60 [facility] [address] [place] [id number] [address] [place], [place] [address] Sep, Bipolar 1 disorder, mixed F3 1.60 [place] [address] [address] Sep, Bipolar 1 disorder, mixed F3 1.60 [place] [address] [address] Sep, Bipolar 1 disorder, mixed F3 1.60 [place] [address] [address] Sep, History of colon polyps Z86. 010 and Hematochezia K92.1 [place] [address] [address] Sep, Major depressive disorder, r ecurrent episode, moderate F33.1 [place] [address] [address] Sep, Bipolar 1 disorder, mixed F3 1.60 [place] [address] [address] Aug, Hot flashes due to menopause N95.1 [place] [address] [place] [id number] [address] [place] [address] Aug, Bipolar 1 disorder, mixed F3 1.60 [place] [address] [place] [id number] [address] [place] [address] Aug, [place] [address] [address] Aug, Bipolar 1 disorder, mixed F3 1.60 [place] [address] [address] Aug, Bipolar 1 disorder, mixed F3 1.60 [place] [address] [address] Aug, Hot flashes due to menopause N95.1 ; Cervicalgia M54.2 and Ataxia R27.0 [place] [address] [address] Jul, Bipolar 1 disorder, mixed F3 1.60 [place] [address] Jul, Bipolar 1 disorder, mixed F3 1.60 [place] [address] Jul, Bipolar 1 disorder, mixed F3 1.60 [place] [address] [address] Jul, Bipolar 1 disorder, mixed F3 1.60 [place] [address] [address] Jul, Bipolar 1 disorder, mixed F3 1.60 [place] [address] [address] Jul, Cervicalgia M54.2 ; Tremor R 25.1 ; Hearing abnormally acute, unspecified laterality H93.239 ; Alopecia L65.9 ; Encounter for immunization Z23 and Family history of thyroid disease Z83.49 [place] [address] [address] Jul, Bipolar 1 disorder, mixed F3 1.60 [place] [address] [address] Jun, [place] [address] [place] [id number] Jun, Hearing disorder, unspecifie d laterality H93.299 [place] [address] [address] Jun, Bipolar 1 disorder, mixed F3 1.60 [facility] [address] [id number] [address] [place] [address] Jun, Bipolar 1 disorder, mixed F3 1.60 [facility] [address] [id number] [address] [place] [address] Jun, Allergic rhinitis J30.9 [facility] [address] [id number] [address] [place] [address] Jun, Bipolar 1 disorder, mixed F3 1.60 [facility] [address] [id number] [address] [place] [address] Jun, Bipolar 1 disorder, mixed F3 1.60 [facility] [address] [facility] [id number] [address] [place] [address] Jun, Allergic rhinitis J30.9 [facility] [address] [facility] [id number] [address] [place] [address] Jun, Allergic rhinitis J30.9 [facility] [address] [id number] [address] [place] [address] Jun, Bipolar 1 disorder, mixed F3 1.60 [facility] [address] [facility] [id number] [address] [place] [address] May, Bipolar 1 disorder, mixed F3 1.60 [facility] [address] [id number] [address] [place] [address] May, Bipolar 1 disorder, mixed F3 1.60 [facility] [address] [id number] [address] [place] [address] May, [facility] [address] [facility] [id number] [address] [place] [address] May, Bipolar 1 disorder, mixed F3 1.60 [facility] [address] [facility] [id number] [address] [place] [address] May, Bipolar 1 disorder, mixed F3 1.60 [facility] [address] [facility] [id number] [address] [place] [address] May, [facility] [address] [facility] [id number] [address] [place] [address] May, [facility] [address] [facility] [id number] [address] [place] [address] May, [facility] [address] [facility] [id number] [address] [place] [address] May, Abdominal pain, unspecified location R10.9 [facility] [address] [facility] [id number] [address] [place] [address] May, [facility] [address] [place] [id number] [place] [address] Apr, Hematuria R31.9 ; Ataxia R27 .0 and Hearing loss, unspecified laterality H91.90 [facility] [address] [place] [id number] [address] [place] [address] Apr, Bipolar 1 disorder, mixed F3 1.60 [facility] [address] [facility] [id number] [address] [place] [address] Apr, Acute effusion of both middl e ears H65.193 [facility] [address] [facility] [id number] [address] [place] [address] Apr, Hematuria R31.9 [address] h[address] N12 [facility] [address] [facility] [id number] [address] [place] [address] Apr, [facility] [address] [facility] [id number] [address] [place] [address] Mar, Bipolar 1 disorder, mixed F3 1.60 [facility] [address] [place] [id number] [address] [place] [id number] Mar, [facility] [address] [place] [id number] [address] [place] [id number] Mar, Bipolar 1 disorder, mixed F3 1.60 [facility] [id number] [place] [address] Mar, Bipolar 1 disorder, mixed F3 1.60 [facility] [id number] Mar, Encounter for immunization Z 23 and Gastritis without bleeding, unspecified chronicity, unspecified gastritis type K29.70 [facility] [address] [place] [id number] [address] [place] [id number] Mar, Bipolar 1 disorder, mixed F3 1.60 and Grief F43.20 [place] [address] [place] [id number] [address] [place] [id number] Mar, Gastritis without bleeding, unspecified chronicity, unspecified gastritis type K29.70 [place] [address] [place] [id number] [address] [place] [id number] Mar, Bipolar 1 disorder, mixed F3 1.60 [place] [id number] [place] [id number] Mar, Gastritis without bleeding, unspecified chronicity, unspecified gastritis type K29.70 [place] [id number] [place] [id number] Mar, [facility] [address] [place] [id number] [address] [place] [id number] 27 Feb, 2016 Bipolar 1 disorder, mixed F3 1.60 [place] [address] [place] [id number] [address] [place] [id number] Feb, Bipolar 1 disorder, mixed F3 1.[address] [facility] [address] [facility] [id number] [address] [place] [id number] Feb, Gastritis without bleeding, unspecified chronicity, unspecified gastritis type K29.70 [facility] [address] [place] [id number] [address] [place] [address] 14 Feb, 2016 Bipolar 1 disorder, mixed F3 1.60 [facility] WALK IN [facility] [address] [facility] [id number] [address] [place], [place] [address] Feb, Gastroesophageal reflux dise ase, esophagitis presence not specified K21.9 [place] [address] Jan, Bipolar 1 disorder, mixed F3 1.60 [place] [address] [place] [address] Jan, Bipolar 1 disorder, mixed F3 1.60 and Unsteady gait R26.81 [place] [address] [address] Jan, Bipolar 1 disorder, mixed F3 1.60 [place] [address] [place] [address] Jan, Bipolar 1 disorder, mixed F3 1.60 and 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 [place] [address] [address] Jan, Bipolar 1 disorder, mixed F3 1.60 [place] [address] [address] Jan, Bipolar 1 disorder, mixed F3 1.60 [place] [address] [place] [address] Jan, Bipolar 1 disorder, mixed F3 1.60 ; Grief F43.20 and Other custodial (current) drug therapy Z79.899 [place] [address] [place] [id number] Jan, Bipolar 1 disorder, mixed F3 1.60 [place] [address] [place] [address] Dec, [place] [address] [place] [address] Dec, Bipolar 1 disorder, mixed F3 1.60 ; Vitamin D deficiency, unspecified E55.9 ; H/O allergic rhinitis Z87.09 ; Other chronic pain G89.29 and Dorsalgia, unspecified M54.9 [facility] [address] [id number] [address] [place] [address] Dec, [facility] [address] [id number] [address] [place] [address] Dec, Bipolar 1 disorder, mixed F3 1.60 [facility] [address] [facility] [id number] [address] [place] [address] Dec, Major depressive disorder, r ecurrent episode, moderate F33.1 [place] [address] [id number] [address] [place] [address] Dec, Major depressive disorder, r ecurrent episode, moderate F33.1 [place] [address] [facility] [id number] [address] [place] [address] Nov, [place] [address] [facility] [id number] [address] [place] [address] Nov, Bipolar 1 disorder, mixed F3 1.60 [place] [id number] [facility] [id number] [address] [place] [address] Nov, Major depressive disorder, r ecurrent episode, moderate F33.1 [place] [address] [facility] [id number] [address] [place] [address] Nov, Cervicalgia M54.2 ; Arthralg ia of hip, unspecified laterality M25.559 ; Allergic rhinitis J30.9 and Hormone replacement therapy Z79.890 [facility] [address] [id number] [address] [place] [address] Nov, Other seasonal allergic rhin itis J30.2 [facility] [address] [facility] [id number] [address] [place] [address] October, Major depressive disorder, r ecurrent episode, moderate F33.1 [facility] [address] [facility] [id number] [address] [place] [address] October, Major depressive disorder, r ecurrent episode, moderate F33.1 and Arthralgia of hip, unspecified laterality M25.559 [facility] [address] [facility] [id number] [address] [place] [address] October, Grief F43.20 ; Hypertension I10 ; Hyperlipidemia, unspecified hyperlipidemia type E78.5 ; Other chronic pain G89.29 and Allergic rhinitis, unspecified allergic rhinitis type J30.9 [place] [address] [facility] [id number] [address] [place] [address] October, Major depressive disorder, r ecurrent episode, moderate F33.1 [place] [address] [id number] [address] [place] [address] Sep, Major depressive disorder, r ecurrent episode, moderate F33.1 [place] [address] [facility] [id number] [address] [place] [address] Sep, [place] [address] [facility] [id number] [address] [place] [address] Sep, Major depressive disorder, r ecurrent episode, moderate F33.1 [place] [address] [facility] [id number] [address] [place] [address] Sep, Grief F43.20 [place] [address] [facility] [id number] [address] [place] [address] Aug, Major depressive disorder, r ecurrent episode, moderate F33.1 [place] [address] [facility] [id number] [address] [place] [address] Aug, Bipolar 1 disorder, mixed F3 1.60 [place] [address] [facility] [id number] [address] [place] [address] Aug, Allergic rhinitis J30.9 ; Ce rvicalgia M54.2 and Low back pain M54.5 [facility] [address] [facility] [id number] [address] [place] [address] Aug, Major depressive disorder, r ecurrent episode, moderate F33.1 [facility]ARE [address] [id number] [address] [place] [address] Aug, Sinusitis J32.9 and Tobacco 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 [facility] [address] [id number] [address] [place] [address] Aug, [facility] [address] [facility] [id number] [address] [place] [address] Aug, Depressive disorder, not els ewhere classified F32.9 ; Hormone replacement therapy Z79.[address] scan, head R93.0 [facility] [address] [id number] [address] [place] [address] Aug, Major depressive disorder, r ecurrent episode, moderate F33.1 [facility] [address] [facility] [id number] [address] [place] [address] Jul, Major depressive disorder, r ecurrent episode, moderate F33.1 [facility] [address] [facility] [id number] [address] [place] [address] Jul, Abdominal pain R10.9 and Hyp ertension I10 [facility] [address] [id number] [address] [place] [address] Jul, [facility] [address] [facility] [id number] [address] [place] [address] Jul, Major depressive disorder, r ecurrent episode, moderate F33.1 [facility] [address] [facility] [id number] [address] [place] [address] Jul, [facility] [address] [facility] [id number] [address] [place] [address] Jul, [facility] [address] [facility] [id number] [address] [place] [address] Jun, [facility] [address] [facility] [id number] [address] [place] [address] Jun, Depressive disorder, not els ewhere classified F32.9 [facility] [address] [id number] [address] [place] [address] Jun, [facility] [address] [id number] [address] [place] [address] Jun, [facility] [address] [id number] [address] [place] [address] Jun, Arthralgia of hip, unspecifi ed laterality M25.559 ; Bruising, spontaneous R23.[address] [facility] [address] [id number] [address] [place] [address] Jun, [facility] [address] [id number] [address] [place] [address] Jun, [facility] [address] [facility] [id number] [address] [place] [address] May, [facility] [address] [facility] [id number] [address] [place] [address] May, Myalgia M79.1 and Screening, lipid Z13.220 [facility] [address] [facility] [id number] [address] [place] [address] Apr, Status post cervical spinal fusion Z98.1 ; Fibromyalgia M79.7 and Unsteady gait R26.81 [facility] [address] [id number] [address] [place] [address] Nov, [facility] [address] [id number] [address] [place] [address] Nov, [facility] [address] [id number] [address] [place] [address] October, [facility] [address] [facility] [id number] [address] [place] [address] October, [facility] [address] [facility] [id number] [address] [place] [address] October, [facility] [address] [facility] [id number] [address] [place] [address] October, [facility] [address] [id number] [address] [place] [address], [place] [address] October, [facility] [address] [id number] [address] [place] [address], [place] [address] October, Dysuria 788.1 ; Nausea 787.0 2 and Urinary tract infection 599.0 [facility] [address] [id number] [address] [place] [address], [place] [address] Sep, [facility] [address] [id number] [address] [place] [address], [place] [address] Sep, [facility] [address] [id number] [address] [place] [address], [place] [address] Aug, [facility] [address] [id number] [address] [place] [address] Aug, [facility] [address] [id number] [address] [place] [address], [place] [address] Aug, [facility] [address] [id number] [address] [place] [address], [place] [address] Aug, [facility] [address] [id number] [address] [place] [address], [place] [address] Aug, [facility] [address] [id number] [address] [place] [address] Aug, [facility] [address] [id number] [address] [place] [address] Aug, [facility] [address] [id number] [address] [place] [address] Aug, [facility] [address] [id number] [address] [place] [address] Aug, [facility] [address] [id number] [address] [place] [address] 18 Aug, 2014 [facility] [address] [id number] [address] [place] [address] 18 Aug, 2014 [facility] [address] [id number] [facility] [place] [address] 13 Aug, 2014 [facility] [address] [id number] [address] [place] [address], [place] [address] 13 Aug, 2014 [facility] [address] [id number] [address] [place] [address], [place] [address] Aug, [facility] [address] [id number] [address] [place] [address], [place] [address] Aug, [facility] [address] [id number] [address] [place] [address], [place] [address] Aug, [facility] [address] [id number] [address] [place] [address], [place] [address] Aug, [facility] [address] [id number] [address] [place] [address], [place] [address] Aug, [facility] [address] [id number] [address] [place] [address], [place] [address] 05 Aug, 2014 [facility] [address] [id number] [address] [place] [address], [place] [address] Aug, [facility] [address] [id number] [address] [place] [address], [place] [address] Aug, [facility] [address] [id number] [address] [place] [address], [place] [address] Aug, [facility] [address] [id number] [address] [place] [address], [place] [address] Jul, [facility] [address] [id number] [address] [place] [address], [place] [address] Jul, [facility] [address] [id number] [address] [place] [address], [place] [address] Jul, [facility] [address] [id number] [address] [place] [address], [place] [address] Jul, [facility] [address] [id number] [address] [place] [address], [place] [address] Jul, 2014 [facility] [address] [id number] [address] [place] [address], [place] [address] Jul, 2014 [facility] [address] [id number] [address] [place] [address], [place] [address] Jul, 2014 [facility] [address] [id number] [address] [place] [address], [place] [address] Jul, 2014 [facility] [address] [id number] [address] [place] [address], [place] [address] Jul, 2014 [facility] [address] [id number] [address] [place] [address], [place] [address] Jul, 2014 [facility] [address] [id number] [address] [place] [address], [place] [address] Jul, [facility] [address] [id number] [address] [place] [address], [place] [address] Jul, 2014 [facility] [address] [id number] [address] [place] [address], [place] [address] Jul, [facility] [address] [id number] [address] [place] [address], [place] [address] Jul, [facility] [address] [id number] [address] [place] [address] Jun, [facility] [address] [id number] [address] [place] [address] Jun, [facility] [address] [id number] [address] [place] [address] Jun, [facility] [address] [id number] [address] [place] [address] Jun, [facility] [address] [id number] [address] [place] [address] Jun, [facility] [address] [id number] [address] [place] [address] Jun, [facility] [address] [id number] [address] [place] [address], [place] [address] May, [facility] [address] [id number] [address] [place] [address], [place] [address] May, [facility] [address] [id number] [address] [place] [address], [place] [address] May, [facility] [address] [id number] [address] [place] [address], [place] [address] May, [facility] [address] [id number] [address] [place] [address], [place] [address] May, [facility] [address] [id number] [address] [place] [address], [place] [address] May, [facility] [address] [id number] [address] [place] [address], [place] [address] Apr, [facility] [address] [id number] [address] [place] [address], [place] [address] Apr, [facility] [address] [id number] [address] [place] [address], [place] [address] Apr, [facility] [address] [id number] [address] [place] [address], [place] [address] Apr, [facility] [address] [id number] [address] [place] [address] Apr, [facility] [address] [id number] [address] [place] [address] Apr, [facility] [address] [id number] [address] [place] [address], [place] [address] Mar, [facility] [address] [id number] [address] [place] [address], [place] [address] Mar, [facility] [address] [id number] [address] [place] [address], [place] [address] Mar, [facility] [address] [id number] [address] [place] [address], [place] [address] 09 Mar, 2013 [facility] [address] [id number] [address] [place] [address], [place] [address] Mar, 2013 [facility] [address] [id number] [address] [place] [address], [place] [address] Mar, 2013 [facility] [address] [id number] [address] [place] [address], [place] [address] Mar, 2013 [facility] [address] [id number] [address] [place] [address], [place] [address] Mar, 2013 [facility] [address] [id number] [address] [place] [address], [place] [address] Mar, 2013 [facility] [address] [id number] [address] [place] [address], [place] [address] Mar, 2013 [facility] [address] [id number] [address] [place] [address], [place] [address] Mar, 2013 [facility] [address] [id number] [address] [place] [address], [place] [address] Mar, 2013 [facility] [address] [id number] [address] [place] [address], [place] [address] 30 Feb, 2013 [facility] [address] [id number] [address] [place] [address], [place] [address] 29 Sep, 2013 [facility] [address] [id number] [address] [place] [address], [place] [address] 29 Sep, 2013 [facility] [address] [id number] [address] [place] [address], [place] [address] 23 Sep, 2013 [facility] [address] [id number] [address] [place] [address], [place] [address] 23 Feb, 2013 [facility] [address] [id number] [address] [place] [address], [place] [address] 08 Sep, 2013 [facility] [address] [id number] [address] [place] [address], [place] [address] Feb, [facility] [address] [id number] [facility] [place] [address] Jan, [facility] [address] [id number] [address] [place] [address], [place] [address] Jan, [facility] [address] [id number] [address] [place] [address], [place] [address] Jan, [facility] [address] [id number] [address] [place] [address], [place] [address] Dec, [facility] [address] [id number] [address] [place] [address], [place] [address] Dec, [facility] [address] [id number] [address] [place] [address], [place] [address] Dec, [facility] [address] [id number] [address] [place] [address], [place] [address] Dec, [facility] [address] [id number] [address] [place] [address], [place] [address] Sep, [facility] [address] [id number] [address] [place] [address], [place] [address] Sep, [facility] [address] [id number] [address] [place] [address], [place] [address] Sep, [facility] [address] [id number] [address] [place] [address], [place] [address] Sep, [facility] [address] [id number] [address] [place] [address], [place] [address] Sep, [facility] [address] [id number] [address] [place] [address], [place] [address] Sep, [facility] [address] [id number] [address] [place] [address], [place] [address] Sep, [facility] [address] [id number] [address] [place] [address], [place] [address] Sep, [facility] [address] [id number] [address] [place] [address], [place] [address] 10 Aug, 2013 [facility] [address] [id number] [address] [place] [address], [place] [address] 10 Aug, 2013 [facility] [address] [id number] [address] [place] [address], [place] [address] May, [facility] [address] [id number] [address] [place] [address], [place] [address] May, [facility] [address] [id number] [address] [place] [address], [place] [address] Apr, [facility] [address] [id number] [address] [place] [address], [place] [address] Apr, [facility] [address] [id number] [address] [place] [address], [place] [address] Apr, [facility] [address] [id number] [address] [place] [address], [place] [address] Apr, [facility] [address] [id number] [address] [place] [address], [place] [address] Apr, [facility] [address] [id number] [address] [place] [address], [place] [address] Apr, [facility] [address] [id number] [address] [place] [address], [place] [address] May, [facility] [address] [id number] [address] [place] [address], [place] [address] 18 May, 2012 [facility] [address] [id number] [address] [place] [address], [place] [address] 15 May, 2012 [facility] [address] [id number] [address] [place] [address], [place] [address] 15 May, 2012 [facility] [address] [id number] [address] [place] [address], [place] [address] 13 May, 2012 [facility] [address] [id number] [address] [place] [address], [place] [address] 13 May, 2012 [facility] [address] [id number] [address] [place] [address], [place] [address] 13 Apr, 2012 [facility] [address] [id number] [address] [place] [address], [place] [address] 13 Apr, 2012 [facility] [address] [id number] [address] [place] [address], [place] [address] 08 Apr, 2012 [facility] [address] [id number] [address] [place] [address], [place] [address] Apr, [facility] [address] [id number] [address] [place] [address], [place] [address] Apr, [facility] [address] [id number] [address] [place] [address], [place] [address] Apr, [facility] [address] [id number] [address] [place] [address], [place] [address] Apr, [facility] [address] [id number] [address] [place] [address], [place] [address] Apr, [facility] [address] [id number] [address] [place] [address], [place] [address] Apr, [facility] [address] [id number] [address] [place] [address], [place] [address] Apr, [facility] [address] [id number] [address] [place] [address], [place] [address] Mar, [facility] [address] [id number] [address] [place] [address], [place] [address] Mar, [facility] [address] [id number] [address] [place] [address], [place] [address] Mar, [facility] [address] [id number] [address] [place] [address], [place] [address] Mar, [facility] [address] [id number] [address] [place] [address], [place] [address] Mar, [facility] [address] [address] [id number] [address] [place] [address], [place] [address] Mar, [facility] [address] [id number] [address] [place] [address], [place] [address] Mar, [facility] [address] [id number] [address] [place] [address], [place] [address] Mar, [facility] [address] [id number] [address] [place] [address], [place] [address] Mar, [facility] [address] [id number] [address] [place] [address], [place] [address] 25 Feb, 2012 [facility] [address] [id number] [address] [place] [address], [place] [address] 16 Feb, 2012 [facility] [address] [id number] [address] [place] [address], [place] [address] Feb, [facility] [address] [id number] [address] [place] [address], [place] [address] Jan, [facility] [address] [id number] [address] [place] [address], [place] [address] Jan, [facility] [address] [id number] [address] [place] [address], [place] [address] Jan, [facility] [address] [id number] [address] [place] [address], [place] [address] Jan, [facility] [address] [id number] [address] [place] [address], [place] [address] Jan, [facility] [address] [id number] [address] [place] [address], [place] [address] Jan, [facility] [address] [id number] [address] [place] [address], [place] [address] 16 Jan, 2012 [facility] [address] [id number] [address] [place] [address], [place] [address] Jan, [facility] [address] [id number] [address] [place] [address], [place] [address] Jan, [facility] [address] [id number] [address] [place] [address], [place] [address] Jan, [facility] [address] [id number] [address] [place] [address], [place] [address] Dec, [facility] [address] [id number] [address] [place] [address], [place] [address] Dec, [facility] [address] [id number] [address] [place] [address], [place] [address] Dec, [facility] [address] [id number] [address] [place] [address], [place] [address] Dec, [facility] [address] [id number] [address] [place] [address], [place] [address] Nov, [facility] [address] [id number] [address] [place] [address], [place] [address] Nov, [facility] [address] [id number] [address] [place] [address], [place] [address] Nov, [facility] [address] [id number] [address] [place] [address], [place] [address] October, [facility] [address] [id number] [address] [place] [address], [place] [address] October, [facility] [address] [id number] [address] [place] [address], [place] [address] October, [facility] [address] [id number] [address] [place] [address], [place] [address] October, [facility] [address] [id number] [address] [place] [address], [place] [address] October, [facility] [address] [id number] [address] [place] [address], [place] [address] October, [facility] [address] [id number] [address] [place] [address], [place] [address] Aug, [facility] [address] [id number] [address] [place] [address], [place] [address] Mar, [facility] [address] [facility] [id number] [address] [place] [phone] Nov, [facility] [address] [facility] [id number] [address] [place] [address] May, [facility] [address] [facility] [id number] [address] [place] [phone] May, [facility] [address] [facility] [id number] [address] [place] [address] Apr, [facility] [address] [facility] [id number] [address] [place] [address] Mar, [facility] [address] [facility] [id number] [address] [place] [phone] Mar, IMMUNIZATIONS No Known Immunizations SOCIAL HISTORY Never Assessed REASON FOR VISIT f/u--Dunia Cain MA PLAN OF CARE Activity Details Follow Up 3 Months Reason: f/u VITAL SIGNS Height 64 in 2017-03-12 Weight 154.4 lbs 2017-03-12 Heart Rate 88 bpm 2017-03-12 Respiratory Rate 20 2017-03-12 BMI 26.50 kg/m2 2017-03-12 Blood pressure systolic 122 mmHg 2017-03-12 Blood pressure diastolic 84 mmHg 2017-03-12 MEDICATIONS Medication Instructions Dosage Frequency Start Date End Date Duration S tatus Probiotic Acidophilus Ac tive HydrOXYzine HCl 10 MG Orally BID prn anxiety, MAX 45 tabs monthly 1 t ablet Active Voltaren 1 % Transdermal 4 times a day on neck Active Magnesium 500 MG Orally Once a day 1 tablet with a meal 24h Dec, Active D89-Pipehd 1 MG Active Vagifem 10 MCG Vaginal Two times a Week 1 tablet Active Myrbetriq 50 MG Orally Once a day 1 tablet 24h Active Multi Vitamin Daily Orally Once a day 1 tablet 24h Active Flexeril 10 mg by oral route 2 times a day 1 tablet 12h 18 Aug, 2014 30 Active Depakote ER 500 MG Orally at bedtime 2 tabs Active Cyclobenzaprine HCl 10 MG TAKE 1 TABLET BY MOUTH TWICE DAILY NEEDED 30 Active Ibuprofen 200 MG Orally every 6 hrs 1 tablet as needed 6h Active Pantoprazole Sodium 20 MG TAKE 1 TABLET BY MOUTH ONCE DAILY 30 Active Selenium 50 MCG Orally Once a day 1 tablet 24h Active Fetzima 120 mg Orally Once a day TAKE 1 CAPSULE BY MOUTH DAILY 24h Active Nitrofurantoin Macrocrystal 100 MG Orally Once a day 1 cap isabel with food or milk 24h Active Mucinex 600 MG Orally every 12 hrs 1 tablet as needed 12h Active Vitamin D3 2000 UNIT Orally Once a day as directed 24h 28 Dec, 2015 Active Flonase 50 MCG/ACT Nasally twice a day 1 spray in each nostril 12h Jan, Active Estradiol 2 MG Orally Once a day 1 tablet 24h Active Melatonin 5 MG Orally at bedtime 1 Tablet by Oral route 1 time per day HS Active Cetirizine HCl 10 mg Orally Once a day 1 tablet 24h Jan, 7 Jan, 90 days Active RESULTS No Results PROCEDURES Procedure Date Ordered Result Body Site [facility] VISIT ESTABLISHED PATIENT Mar 12, 2017 INSTRUCTIONS MEDICATIONS ADMINISTERED No Known [...]
--- OUTSIDE RECORDS SUMMARY | 2019-06-19 05:54 | XMS REPORT ---
Author Author Sydnie MONTERO Organization [facility] Address [address] [place] [address] Care Team Providers Care Hook Tender Name Role Phone YAEL MONTERO Unavailable PROBLEMS Type Condition ICD9-CM Code MCV85-RH Code Onset Dates Condition S tatus SNOMED Code Problem Hormone replacement therapy Z79.890 Ac tive 656163034 Problem Abnormal CT scan, head R93.0 Active 751135323 Problem Sensorineural hearing loss (SNHL) of both ears H90 .3 Active 702142180 Problem History of colon polyps Z86.010 Active 838588176 Problem Bruising, spontaneous R23.3 Active 111025206 Problem Generalized anxiety disorder F41.1 A ctive 83712576 Problem Arthralgia of hip, unspecified laterality M25.559 Active 19271530 Problem Hematuria, unspecified type R31.9 Ac tive 91197206 Problem Imbalance R26.89 Active 103512485 Problem Hammer toe of right foot M20.41 Activ e 130510354 Problem Plantar wart of right foot B07.0 Act mitchell [id number] Problem Sciatica of left side M54.32 Active 65072128 Problem Hyperlipidemia, unspecified hyperlipidemia type E7 8.5 Active 07435388 Problem Hypertension I10 Active 5836450 3 Problem Night sweats R61 Active 5760137 0 Problem Fibromyalgia M79.7 Active 7088841 7 Problem Major depressive disorder, recurrent episode, moderate F33.1 Active 251241757 Problem Acute left-sided low back pain with left-sided sciatica M54.42 Active 265354170 Problem Bladder spasm N32.89 Active 278816 006 Problem Gastritis without bleeding, unspecified chronicity, unspecified gastritis type K29.70 Active 374473065 Problem Bipolar 1 disorder, mixed F31.60 Acti ve 15923503 Problem Grief F43.20 Active 51031035 Problem Other chronic pain G89.29 Active 8 8691533 Problem Allergic rhinitis J30.9 Active 61 657304 Problem Hot flashes due to menopause N95.1 A ctive 129348073 Problem Ataxia R27.0 Active 15887120 Problem Hearing loss, unspecified laterality H91.90 Active 19068422 ALLERGIES Substance Reaction Event Type Date Status Morphine Sulfate Unknown Drug Allergy May, Active Iodine Unknown Drug Allergy May, Active Lyrica 75 Mg Capsule "felt weird" Non Drug Allergy May, Act mitchell ENCOUNTERS Encounter Location Date Diagnosis [facility] [address] [address] Dec, [facility] [address] [address] Nov, [facility] [address] [address] Nov, [place] [address] [address] Nov, [facility] [address] [address] Nov, [facility] [address] [address] October, Bipolar 1 disorder, mixed F3 1.60 [facility] [address] [place] [id number] [address] [place] [phone] October, Acute nasopharyngitis J00 [facility] [address] [place] [id number] [address] [place] [phone] October, Bitten or stung by nonvenomo us insect and other nonvenomous arthropods, initial encounter W57.XXXA and Insect bite (nonvenomous) of abdominal wall, initial encounter S30.861A [facility] [address] [place] [id number] [address] [place] [id number] October, Insect bite (nonvenomous) of abdominal wall, initial encounter S30.861A ; Bitten or stung by nonvenomous insect and other nonvenomous arthropods, initial encounter W57.XXXA ; Allergic rhinitis J30.9 and Low back pain M54.5 [facility] [address] [facility] [id number] [address] [place] [phone] October, Bipolar 1 disorder, mixed F3 1.60 [facility] [address] [place] [id number] [address] [place] [phone] October, [facility] [address] [facility] [id number] [address] [place] [phone] October, [facility] [address] [facility] [id number] [address] [place] [id number] October, Bipolar 1 disorder, mixed F3 1.60 [facility] [address] [place] [id number] [address] [place] [id number] Sep, Bipolar 1 disorder, mixed F3 1.60 [facility] [address] [place] [id number] [address] [place] [phone] Sep, Other chronic pain G89.29 [facility] [address] [facility] [id number] [address] [place] [phone] Sep, [facility] [address] [facility] [id number] [address] [place] [phone] Sep, Bipolar 1 disorder, mixed F3 1.60 [facility] [address] [facility] [id number] [address] [place] [id number] Sep, Allergic rhinitis J30.9 and Sciatica of left side M54.32 [facility] [address] [facility] [id number] [address] [place] [id number] Sep, Bipolar 1 disorder, mixed F3 1.60 [facility] [address] [facility] [id number] [address] [place] [id number] Sep, Bipolar 1 disorder, mixed F3 1.60 and Generalized anxiety disorder F41.1 [facility] [address] [facility] [id number] [address] [place] [phone] Aug, [facility] [address] [id number] [address] [place] [phone] Aug, Bipolar 1 disorder, mixed F3 1.60 [facility] [address] [facility] [id number] [address] [place] [phone] Aug, Bipolar 1 disorder, mixed F3 1.60 [facility] [address] [facility] [id number] [address] [place] [phone] Aug, [facility] [address] [facility] [id number] [address] [place] [phone] Aug, Generalized anxiety disorder F41.1 [facility] [address] [facility] [id number] [address] [place] [phone] Aug, Bipolar 1 disorder, mixed F3 1.60 [facility] [address] [facility] [id number] [address] [place] [phone] Aug, Plantar wart of right foot B 07.0 [facility] [address] [facility] [id number] [address] [place] [phone] Aug, Bipolar 1 disorder, mixed F3 1.60 [facility] [address] [facility] [id number] [address] [place] [phone] Jul, Bipolar 1 disorder, mixed F3 1.60 [facility] [address] [facility] [id number] [address] [place] [phone] Jul, [facility] [address] [facility] [id number] [address] [place] [phone] 14 Jul, 2017 Bipolar 1 disorder, mixed F3 1.60 [facility] [address] [facility] [id number] [address] [place] [phone] 09 Jul, 2017 Generalized anxiety disorder F41.1 [facility] [address] [facility] [id number] [address] [place] [phone] Jul, Bipolar 1 disorder, mixed F3 1.60 [facility] [address] [facility] [id number] [address] [place] [phone] 07 Jul, 2017 Acute left-sided low back pa in with left-sided sciatica M54.42 [facility] [address] [place] [id number] [place] [phone] 05 Jul, 2017 Coccydynia M53.3 [facility] [address] [place] [id number] [address] [place] [phone] Jun, Bipolar 1 disorder, mixed F3 1.60 [facility] [address] [place] [id number] [place] [phone] Jun, Acute nasopharyngitis J00 [place] [address] [address] Jun, Bipolar 1 disorder, mixed F3 1.60 [place] [address] [address] Jun, Fibromyalgia M79.7 [facility] [address] [address] Jun, Bipolar 1 disorder, mixed F3 1.60 [place] [address] [address] Jun, Fibromyalgia M79.7 and Bipol ar 1 disorder, mixed F31.60 [facility] [address] [place] [id number] [address] [place] [phone] May, Bipolar 1 disorder, mixed F3 1.60 ; Generalized anxiety disorder F41.1 and Other machine long goods helper (current) drug therapy Z79.899 [facility] [address] [place] [id number] [address] [place] [phone] May, Bipolar 1 disorder, mixed F3 1.60 [facility] [address] [place] [id number] [address] [place] [phone] 14 May, 2017 Cough R05 and Body aches R52 [facility] [address] [place] [id number] [address] [place] [phone] May, Bladder spasm N32.89 and Acu te cystitis without hematuria N30.00 [facility] [address] [place] [id number] [address] [place] [phone] 07 May, 2017 Bipolar 1 disorder, mixed F3 1.60 [facility] [address] [place] [id number] [address] [place] [phone] Apr, [place] [address] [address] Apr, Major depressive disorder, r ecurrent episode, moderate F33.1 and Encounter for immunization Z23 [place] [address] [place] [id number] [place] [phone] Apr, Bipolar 1 disorder, mixed F3 1.60 [place] [address] [place] [id number] [address] [place] [phone] Apr, Bipolar 1 disorder, mixed F3 1.60 [place] [address] [address] Apr, Bipolar 1 disorder, mixed F3 1.60 [place] [address] [place] [id number] [address] [place] [phone] Apr, Yeast vaginitis B37.3 [place] [address] [place] [id number] [address] [place] [phone] 09 Apr, 2017 Bipolar 1 disorder, mixed F3 1.60 [facility] [address] [place] [id number] [address] [place] [phone] 07 Apr, 2017 Encounter for immunization Z 23 and Cellulitis L03.90 [facility] [address] [facility] [id number] [address] [place] [phone] Apr, Bipolar 1 disorder, mixed F3 1.60 [facility] [address] [place] [id number] [address] [place] [phone] Mar, Bipolar 1 disorder, mixed F3 1.60 [place] [address] [place] [id number] [address] [place] [address] Mar, Bipolar 1 disorder, mixed F3 1.60 [place] [id number] [place] [address] Mar, Imbalance R26.89 and Encount er for immunization Z23 [place] [address] [place] [id number] [address] [place] [phone] 18 Mar, 2017 Generalized anxiety disorder F41.1 [place] [address] [address] Mar, Bipolar 1 disorder, mixed F3 1.60 [place] [address] [address] Mar, Generalized anxiety disorder F41.1 [place] [address] [address] Mar, Bipolar 1 disorder, mixed F3 1.60 [place] [address] [address] Mar, Bipolar 1 disorder, mixed F3 1.60 [place] [address] [place] [id number] [address] [place] [phone] Feb, Bipolar 1 disorder, mixed F3 1.60 [place] [address] [address] Feb, Bipolar 1 disorder, mixed F3 1.60 and Generalized anxiety disorder F41.1 [place] [address] [address] Feb, Gastritis without bleeding, unspecified chronicity, unspecified gastritis type K29.70 ; Hammer toe of right foot M20.41 and Other viral warts B07.8 [place] [address] [place] [id number] [address] [place] [phone] Feb, Bipolar 1 disorder, mixed F3 1.60 [place] [address] [place] [id number] [address] [place] [id number] 13 Feb, 2017 Bipolar 1 disorder, mixed F3 1.60 [place] [id number] [facility] [id number] [address] [place] [phone] 05 Feb, 2017 Bipolar 1 disorder, mixed F3 1.60 [place] [address] [facility] [id number] [address] [place] [phone] 31 Jan, 2017 Encounter for screening mamm ogram for breast cancer Z12.31 ; Other viral warts B07.8 and Allergic rhinitis J30.9 [place] [address] [facility] [id number] [address] [place] [address] Jan, Bipolar 1 disorder, mixed F3 1.60 [place] [address] [facility] [id number] [address] [place] [phone] Jan, Bipolar 1 disorder, mixed F3 1.60 [place] [address] [place] [id number] [address] [place] [phone] 14 Jan, 2017 [place] [address] [place] [phone] Jan, Bipolar 1 disorder, mixed F3 1.60 [place] [address] [place] [id number] [address] [place] [id number] Jan, Bipolar 1 disorder, mixed F3 1.60 [place] [address] [place] [id number] [address] [place] [phone] 02 Jan, 2017 Allergic rhinitis J30.9 ; He maturia R31.9 and Colon cancer screening Z12.11 [place] [address] [facility] [id number] [address] [place] [address] Dec, Bipolar 1 disorder, mixed F3 1.60 [place] [address] [facility] [id number] [address] [place] [phone] 18 Dec, 2016 Bipolar 1 disorder, mixed F3 1.60 ; Generalized anxiety disorder F41.1 and Other machine long goods helper (current) 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 therapy Z79.899 [place] [address] [place] [id number] [address] [place] [phone] 17 Dec, 2016 Bipolar 1 disorder, mixed F3 1.60 [place] [address] [facility] [id number] [address] [place] [id number] Dec, Bipolar 1 disorder, mixed F3 1.60 [facility] [address] [facility] [id number] [address] [place] [phone] Dec, Bipolar 1 disorder, mixed F3 1.60 [facility] [address] [facility] [id number] [address] [place] [phone] Dec, Low back pain M54.5 and Recu rrent urinary tract infection N39.0 [facility] [address] [facility] [id number] [address] [place] [phone] Nov, Bipolar 1 disorder, mixed F3 1.60 [facility] [address] [facility] [id number] [address] [place] [phone] Nov, Bipolar 1 disorder, mixed F3 1.60 [facility] [address] [place] [id number] [address] [place] [phone] Nov, Bipolar 1 disorder, mixed F3 1.60 [facility] [address] [facility] [id number] [address] [place] [phone] Nov, Bipolar 1 disorder, mixed F3 1.60 [facility] [address] [facility] [id number] [address] [place] [phone] Nov, [facility] [address] [facility] [id number] [address] [place] [phone] Nov, Anesthesia of skin R20.0 ; F requent UTI N39.0 ; Tobacco abuse Z72.0 and Colon cancer screening Z12.11 [facility] [address] [facility] [id number] [address] [place] [phone] Nov, Bipolar 1 disorder, mixed F3 1.60 [facility] [address] [facility] [id number] [address] [place] [address] October, Bipolar 1 disorder, mixed F3 1.60 [facility] [address] [facility] [id number] [address] [place] [phone] October, Bipolar 1 disorder, mixed F3 1.60 [facility] [address] [place] [id number] [address] [place] [phone] October, Bipolar 1 disorder, mixed F3 1.60 [facility] [address] [place] [id number] [address] [place] [phone] October, Bipolar 1 disorder, mixed F3 1.60 [facility] [address] [address] October, Bipolar 1 disorder, mixed F3 1.60 [facility] [address] [place] [id number] [address] [place] [id number] October, Cervicalgia M54.2 and Bipola r 1 disorder, mixed F31.60 [facility] [address] [place] [id number] [address] [place] [phone] October, Hypertension I10 ; Hyperlipi demia, unspecified hyperlipidemia type E78.5 and Family history of thyroid disease Z83.49 [facility] [address] [place] [id number] [address] [place] [phone] October, [place] [address] [place] [id number] [place] [address] October, Hypertension I10 ; Hyperlipi demia, unspecified hyperlipidemia type E78.5 and Family history of thyroid problem Z83.49 [place] [address] [place] [id number] [address] [place] [address] October, Bipolar 1 disorder, mixed F3 1.60 [facility] [address] [place] [id number] [address] [place] [phone] Sep, Bipolar 1 disorder, mixed F3 1.60 [facility] [address] [place] [id number] [address] [place] [phone] Sep, Bipolar 1 disorder, mixed F3 1.60 [facility] [address] [place] [id number] [address] [place] [address] Sep, Bipolar 1 disorder, mixed F3 1.60 [place] [address] [place] [id number] [address] [place] [address] Sep, History of colon polyps Z86. 010 and Hematochezia K92.1 [place] [address] [address] Sep, Major depressive disorder, r ecurrent episode, moderate F33.1 [place] [address] [address] Sep, Bipolar 1 disorder, mixed F3 1.60 [place] [address] [address] Aug, Hot flashes due to menopause N95.1 [place] [address] [address] Aug, Bipolar 1 disorder, mixed F3 1.60 [place] [address] [address] Aug, [place] [address] [address] Aug, Bipolar 1 disorder, mixed F3 1.60 [place] [address] [address] Aug, Bipolar 1 disorder, mixed F3 1.60 [place] [address] [address] Aug, Hot flashes due to menopause N95.1 ; Cervicalgia M54.2 and Ataxia R27.0 [place] [address] [address] Jul, Bipolar 1 disorder, mixed F3 1.60 [place] [address] [address] Jul, Bipolar 1 disorder, mixed F3 1.60 [place] [address] [address] Jul, Bipolar 1 disorder, mixed F3 1.60 [place] [address] [address] 13 Jul, 2016 Bipolar 1 disorder, mixed F3 1.60 [place] [address] 10 Jul, 2016 Bipolar 1 disorder, mixed F3 1.60 [place] [address] [place] [address] 08 Jul, 2016 Cervicalgia M54.2 ; Tremor R 25.1 ; Hearing abnormally acute, unspecified laterality H93.239 ; Alopecia L65.9 ; Encounter for immunization Z23 and Family history of thyroid disease Z83.49 [place] [address] [place] [id number] 06 Jul, 2016 Bipolar 1 disorder, mixed F3 1.60 [place] [address] [place] [address] Jun, [place] [address] [place] [id number] Jun, Hearing disorder, unspecifie d laterality H93.299 [place] [address] [place] [address] Jun, Bipolar 1 disorder, mixed F3 1.60 [place] [address] [place] [id number] Jun, Bipolar 1 disorder, mixed F3 1.60 [place] [address] [address] Jun, Allergic rhinitis J30.9 [place] [address] [place] [id number] Jun, Bipolar 1 disorder, mixed F3 1.60 [place] [address] [address] Jun, Bipolar 1 disorder, mixed F3 1.60 [place] [address] [id number] [address] [place] [phone] Jun, Allergic rhinitis J30.9 [facility] [address] [id number] [address] [place] [phone] Jun, Allergic rhinitis J30.9 [facility] [address] [facility] [id number] [address] [place] [phone] Jun, Bipolar 1 disorder, mixed F3 1.60 [facility] [address] [id number] [address] [place] [phone] May, Bipolar 1 disorder, mixed F3 1.60 [facility] [address] [id number] [address] [place] [phone] May, Bipolar 1 disorder, mixed F3 1.60 [facility] [address] [facility] [id number] [address] [place] [phone] May, [facility] [address] [id number] [address] [place] [phone] May, Bipolar 1 disorder, mixed F3 1.60 [facility] [address] [id number] [address] [place] [phone] May, Bipolar 1 disorder, mixed F3 1.60 [facility] [address] [id number] [address] [place] [phone] May, [facility] [address] [id number] [address] [place] [phone] May, [facility] [address] [id number] [address] [place] [phone] May, [facility] [address] [facility] [id number] [address] [place] [phone] May, Abdominal pain, unspecified location R10.9 [facility] [address] [id number] [address] [place] [phone] May, [facility] [address] [facility] [id number] [address] [place] [address] Apr, Hematuria R31.9 ; Ataxia R27 .0 and Hearing loss, unspecified laterality H91.90 [facility] [address] [place] [address] Apr, Bipolar 1 disorder, mixed F3 1.60 [facility] [address] [address] Apr, Acute effusion of both middl e ears H65.193 [facility] [address] [address] Apr, Hematuria R31.9 and Pyelonep hritis N[address] [place] [address] [address] [place] [id number] Apr, [place] [address] [address] Mar, Bipolar 1 disorder, mixed F3 1.60 [facility] [address] [address] Mar, [facility] [address] Mar, Bipolar 1 disorder, mixed F3 1.60 [place] [address] [address] Mar, Bipolar 1 disorder, mixed F3 1.60 [place] [address] [address] Mar, Encounter for immunization Z 23 and Gastritis without bleeding, unspecified chronicity, unspecified gastritis type K29.70 [place] [address] [place] [id number] Mar, Bipolar 1 disorder, mixed F3 1.60 and Grief F43.20 [place] [address] [address] Mar, Gastritis without bleeding, unspecified chronicity, unspecified gastritis type K29.70 [facility] [address] [facility] [id number] [address] [place] [id number] Mar, Bipolar 1 disorder, mixed F3 1.60 [facility] [address] [facility] [id number] [address] [place], [place] [id number] 05 Mar, 2016 Gastritis without bleeding, unspecified chronicity, unspecified gastritis type K29.70 [facility] [address] [facility] [id number] [address] [place], [place] [address] Mar, [facility] [facility] [address] [facility] [id number] [address] [place] [id number] Feb, Bipolar 1 disorder, mixed F3 1.60 [place] [address] [place] [id number] [address] [place] [phone] Feb, Bipolar 1 disorder, mixed F3 1.60 and Grief F43.20 [place] [address] [place] [id number] [address] [place] [phone] Feb, Gastritis without bleeding, unspecified chronicity, unspecified gastritis type K29.70 [place] [address] [facility] [id number] [address] [place] [id number] 14 Feb, 2016 Bipolar 1 disorder, mixed F3 1.60 [facility] [address] [facility] [id number] [address] [place] [phone] 09 Feb, 2016 Gastroesophageal reflux dise ase, esophagitis presence not specified K21.9 [facility] [address] [facility] [id number] [address] [place] [phone] Jan, Bipolar 1 disorder, mixed F3 1.60 [facility] [address] [facility] [id number] [address] [place] [phone] Jan, Bipolar 1 disorder, mixed F3 1.60 and Unsteady gait R26.81 [facility] [address] [facility] [id number] [address] [place] [phone] Jan, Bipolar 1 disorder, mixed F3 1.60 [facility] [address] [place] [id number] [address] [place] [phone] Jan, Bipolar 1 disorder, mixed F3 1.60 and Other machine long goods helper (current) drug therapy Z79.899 [facility] [address] [facility] [id number] [address] [place] [phone] Jan, Bipolar 1 disorder, mixed F3 1.60 [facility] [address] [facility] [id number] [address] [place] [phone] Jan, Bipolar 1 disorder, mixed F3 1.60 [place] [address] [facility] [id number] [address] [place] [phone] Jan, Bipolar 1 disorder, mixed F3 1.60 ; Grief F43.20 and Other machine long goods helper (current) drug therapy Z79.899 [place] [id number] [facility] [id number] [address] [place] [phone] Jan, Bipolar 1 disorder, mixed F3 1.60 [place] [address] [place] [id number] [address] [place] [phone] Dec, [place] [address] [facility] [id number] [address] [place] [phone] Dec, Bipolar 1 disorder, mixed F3 1.60 ; Vitamin D deficiency, unspecified E55.9 ; H/O allergic rhinitis Z87.09 ; Other chronic pain G89.29 and Dorsalgia, unspecified M54.9 [place] [address] [facility] [id number] [address] [place] [phone] Dec, [place] [address] [facility] [id number] [address] [place] [phone] Dec, Bipolar 1 disorder, mixed F3 1.60 [place] [address] [place] [id number] [address] [place] [phone] Dec, Major depressive disorder, r ecurrent episode, moderate F33.1 [place] [address] [facility] [id number] [address] [place] [phone] Dec, Major depressive disorder, r ecurrent episode, moderate F33.1 [facility] [address] [facility] [id number] [address] [place] [phone] Nov, [place] [address] [place] [id number] [address] [place] [phone] Nov, Bipolar 1 disorder, mixed F3 1.60 [place] [address] [place] [id number] [address] [place] [phone] Nov, Major depressive disorder, r ecurrent episode, moderate F33.1 [place] [address] [place] [id number] [address] [place] [phone] Nov, Cervicalgia M54.2 ; Arthralg ia of hip, unspecified laterality M25.559 ; Allergic rhinitis J30.9 and Hormone replacement therapy Z79.890 [facility] [address] [place] [id number] [address] [place] [phone] Nov, Other seasonal allergic rhin itis J30.2 [place] [id number] [place] [phone] October, Major depressive disorder, r ecurrent episode, moderate F33.1 [place] [address] [id number] October, Major depressive disorder, r ecurrent episode, moderate F33.1 and Arthralgia of hip, unspecified laterality M25.559 [place] [id number] [place] [address] October, Grief F43.20 ; Hypertension I10 ; Hyperlipidemia, unspecified hyperlipidemia type E78.5 ; Other chronic pain G89.29 and Allergic rhinitis, unspecified allergic rhinitis type J30.9 [place] [address] [place] [id number] [address] [place] [phone] October, Major depressive disorder, r ecurrent episode, moderate F33.1 [place] [address] [facility] [id number] [address] [place] [phone] Sep, Major depressive disorder, r ecurrent episode, moderate F33.1 [facility] [address] [id number] [address] [place] [phone] Sep, [facility] [address] [facility] [id number] [address] [place] [phone] Sep, Major depressive disorder, r ecurrent episode, moderate F33.1 [facility] [address] [facility] [id number] [address] [place] [phone] Sep, Grief F43.20 [facility] [address] [facility] [id number] [address] [place] [phone] Aug, Major depressive disorder, r ecurrent episode, moderate F33.1 [place] [address] [facility] [id number] [address] [place] [phone] Aug, Bipolar 1 disorder, mixed F3 1.60 [place] [address] [facility] [id number] [address] [place] [phone] Aug, Allergic rhinitis J30.9 ; Ce rvicalgia M54.2 and Low back pain M54.5 [facility] [address] [facility] [id number] [address] [place] [id number] Aug, Major depressive disorder, r ecurrent episode, moderate F33.1 [facility] [address] [facility] [id number] [address] [place] [phone] Aug, Sinusitis J32.9 and Tobacco 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 [facility] [address] [facility] [id number] [address] [place] [phone] Aug, [facility] [address] [facility] [id number] [address] [place] [phone] Aug, Depressive disorder, not els ewhere classified F32.9 ; Hormone replacement therapy Z79.[address] scan, head R93.0 [facility] [address] [facility] [id number] [address] [place] [phone] Aug, Major depressive disorder, r ecurrent episode, moderate F33.1 [place] [address] [id number] [address] [place] [phone] 17 Jul, 2015 Major depressive disorder, r ecurrent episode, moderate F33.1 [facility] [address] [facility] [id number] [address] [place] [phone] Jul, Abdominal pain R10.9 and Hyp ertension I10 [facility] [address] [facility] [id number] [address] [place] [phone] Jul, [facility] [address] [facility] [id number] [address] [place] [phone] Jul, Major depressive disorder, r ecurrent episode, moderate F33.1 [facility] [address] [facility] [id number] [address] [place] [phone] Jul, [facility] [address] [facility] [id number] [address] [place] [phone] Jul, [facility] [address] [place] [id number] [address] [place] [phone] Jun, [facility] [address] [facility] [id number] [address] [place] [phone] Jun, Depressive disorder, not els ewhere classified F32.9 [facility] [address] [facility] [id number] [address] [place] [phone] Jun, [facility] [address] [place] [id number] [address] [place] [phone] Jun, [facility] [address] [place] [id number] [address] [place] [phone] Jun, Arthralgia of hip, unspecifi ed laterality M25.559 ; Bruising, spontaneous R23.3 and Night sweats R61 [facility] [address] [facility] [id number] [address] [place] [phone] Jun, [facility] [address] [place] [id number] [address] [place] [phone] Jun, [facility] [address] [id number] [address] [place] [phone] May, [facility] [address] [id number] [address] [place] [phone] May, Myalgia M79.1 and Screening, lipid Z13.220 [facility] [address] [id number] [address] [place] [phone] Apr, Status post cervical spinal fusion Z98.1 ; Fibromyalgia M79.7 and Unsteady gait R26.81 [facility] [address] [id number] [address] [place] [phone] Nov, [facility] [address] [id number] [address] [place] [phone] Nov, [facility] [address] [id number] [address] [place] [phone] October, [facility] [address] [id number] [address] [place] [phone] October, [facility] [address] [id number] [address] [place] [phone] October, [facility] [address] [facility] [id number] [address] [place] [phone] October, [facility] [address] [facility] [id number] [address] [place] [phone] October, [facility] [address] [facility] [id number] [address] [place] [phone] October, Dysuria 788.1 ; Nausea 787.0 2 and Urinary tract infection 599.0 [facility] [address] [id number] [address] [place] [phone] Sep, [facility] [address] [id number] [address] [place] [phone] Sep, [facility] [address] [facility] [id number] [address] [place] [phone] 25 Aug, 2014 [facility] [address] [id number] [facility] [place] [address] 25 Aug, 2014 [facility] [address] [id number] [address] [place] [address], [place] [id number] 24 Aug, 2014 [facility] [address] [id number] [address] [place] [address], [place] [address] 24 Aug, 2014 [facility] [address] [id number] [address] [place] [address], [place] [id number] 23 Aug, 2014 [facility] [address] [id number] [address] [place] [address], [place] [address] 19 Aug, 2014 [facility] [address] [id number] [address] [place] [address], [place] [id number] 19 Aug, 2014 [facility] [address] [id number] [address] [place] [address], [place] [address] 19 Aug, 2014 [facility] [address] [id number] [address] [place] [address], [place] [id number] 19 Aug, 2014 [facility] [address] [id number] [address] [place] [address], [place] [id number] 18 Aug, 2014 [facility] [address] [id number] [address] [place] [address], [place] [address] 18 Aug, 2014 [facility] [address] [id number] [address] [place] [address], [place] [id number] 13 Aug, 2014 [facility] [address] [id number] [address] [place] [address], [place] [address] 13 Aug, 2014 [facility] [address] [id number] [address] [place] [address], [place] [address] 11 Aug, 2014 [facility] [address] [id number] [address] [place] [address], [place] [address] 11 Aug, 2014 [facility] [address] [id number] [address] [place] [address], [place] [address] 06 Aug, 2014 [facility] [address] [id number] [address] [place] [address], [place] [id number] 06 Aug, 2014 [facility] [address] [id number] [address] [place] [address], [place] [address] Aug, 2014 [facility] [address] [id number] [address] [place] [address], [place] [address] Aug, 2014 [facility] [address] [id number] [address] [place] [address], [place] [address] Aug, 2014 [facility] [address] [id number] [address] [place] [address], [place] [address] Aug, [facility] [address] [id number] [address] [place] [address], [place] [address] Aug, [facility] [address] [id number] [address] [place] [address], [place] [address] Jul, [facility] [address] [id number] [address] [place] [address], [place] [address] Jul, 2014 [facility] [address] [id number] [address] [place] [address], [place] [address] Jul, [facility] [address] [id number] [address] [place] [address], [place] [address] Jul, [facility] [address] [id number] [address] [place] [address], [place] [address] Jul, [facility] [address] [id number] [address] [place] [address], [place] [address] Jul, 2014 [facility] [address] [id number] [address] [place] [address], [place] [address] Jul, 2014 [facility] [address] [id number] [address] [place] [address], [place] [address] Jul, 2014 [facility] [address] [id number] [address] [place] [address], [place] [address] Jul, 2014 [facility] [address] [id number] [address] [place] [address], [place] [address] Jul, 2014 [facility] [address] [id number] [address] [place] [address], [place] [address] Jul, 2014 [facility] [address] [id number] [address] [place] [address], [place] [address] Jul, 2014 [facility] [address] [id number] [address] [place] [address], [place] [address] Jul, 2014 [facility] [address] [id number] [address] [place] [address], [place] [address] Jul, [facility] [address] [id number] [address] [place] [address], [place] [address] Jun, [facility] [address] [id number] [address] [place] [address], [place] [address] Jun, [facility] [address] [id number] [address] [place] [phone] Jun, [facility] [address] [id number] [address] [place] [address], [place] [address] Jun, [facility] [address] [id number] [address] [place] [address], [place] [address] Jun, [facility] [address] [id number] [address] [place] [phone] Jun, [facility] [address] [id number] [address] [place] [address], [place] [address] May, [facility] [address] [id number] [address] [place] [phone] May, [facility] [address] [id number] [address] [place] [address], [place] [address] May, [facility] [address] [id number] [address] [place] [address], [place] [address] May, [facility] [address] [id number] [address] [place] [address], [place] [address] May, [facility] [address] [id number] [address] [place] [address], [place] [address] May, [facility] [address] [id number] [address] [place] [address], [place] [address] Apr, [facility] [address] [id number] [address] [place] [address], [place] [address] Apr, [facility] [address] [id number] [address] [place] [address], [place] [address] Apr, [facility] [address] [id number] [address] [place] [address], [place] [address] Apr, [facility] [address] [id number] [address] [place] [address], [place] [address] Apr, [facility] [address] [id number] [address] [place] [address], [place] [address] Apr, [facility] [address] [id number] [address] [place] [address], [place] [address] Mar, [facility] [address] [id number] [address] [place] [address], [place] [address] Mar, [facility] [address] [id number] [address] [place] [address], [place] [address] Mar, [facility] [address] [id number] [address] [place] [address], [place] [address] Mar, [facility] [address] [id number] [address] [place] [address], [place] [address] Mar, [facility] [address] [id number] [address] [place] [id number] Mar, [facility] [address] [id number] [address] [place] [address], [place] [address] Mar, [facility] [address] [id number] [address] [place] [id number] Mar, [facility] [address] [id number] [address] [place] [id number] Mar, [facility] [address] [id number] [address] [place] [address], [place] [address] Mar, [facility] [address] [id number] [address] [place] [address], [place] [address] Mar, [facility] [address] [id number] [address] [place] [address], [place] [address] Mar, [facility] [address] [id number] [address] [place] [address], [place] [address] 30 Feb, 2014 [facility] [address] [id number] [address] [place] [address], [place] [address] Feb, [facility] [address] [id number] [address] [place] [address], [place] [address] Feb, [facility] [address] [id number] [address] [place] [address], [place] [address] Feb, [facility] [address] [id number] [address] [place] [address], [place] [address] Feb, [facility] [address] [id number] [address] [place] [address], [place] [address] Feb, [facility] [address] [id number] [address] [place] [address], [place] [address] Feb, [facility] [address] [id number] [address] [place] [address], [place] [address] Jan, [facility] [address] [id number] [address] [place] [address], [place] [address] Jan, [facility] [address] [id number] [address] [place] [address], [place] [address] Jan, [facility] [address] [id number] [address] [place] [address], [place] [address] Dec, [facility] [address] [id number] [address] [place] [address], [place] [address] Dec, [facility] [address] [id number] [address] [place] [address], [place] [address] Dec, [facility] [address] [id number] [address] [place] [address], [place] [address] Dec, [facility] [address] [id number] [address] [place] [address], [place] [address] Sep, [facility] [address] [id number] [address] [place] [address], [place] [address] Sep, [facility] [address] [id number] [address] [place] [address], [place] [address] Sep, [facility] [address] [id number] [address] [place] [address], [place] [address] Sep, [facility] [address] [id number] [address] [place] [address], [place] [address] Sep, [facility] [address] [id number] [address] [place] [address], [place] [address] Sep, [facility] [address] [id number] [address] [place] [address], [place] [address] Sep, [facility] [address] [id number] [address] [place] [address], [place] [address] Sep, [facility] [address] [id number] [address] [place] [address], [place] [address] Aug, [facility] [address] [id number] [address] [place] [address], [place] [address] Aug, [facility] [address] [id number] [address] [place] [address], [place] [address] May, [facility] [address] [id number] [address] [place] [address], [place] [address] May, [facility] [address] [id number] [address] [place] [address], [place] [address] Apr, [facility] [address] [id number] [address] [place] [address], [place] [address] Apr, [facility] [address] [id number] [address] [place] [address], [place] [address] Apr, [facility] [address] [id number] [address] [place] [address], [place] [address] Apr, [facility] [address] [id number] [address] [place] [address], [place] [address] Apr, [facility] [address] [id number] [address] [place] [address], [place] [address] Apr, [facility] [address] [id number] [address] [place] [address], [place] [address] May, [facility] [address] [id number] [address] [place] [address], [place] [address] May, [facility] [address] [id number] [address] [place] [address], [place] [address] May, [facility] [address] [id number] [address] [place] [address], [place] [address] May, [facility] [address] [id number] [address] [place] [address], [place] [address] May, [facility] [address] [id number] [address] [place] [address], [place] [address] May, [facility] [address] [id number] [address] [place] [address], [place] [address] Apr, [facility] [address] [id number] [address] [place] [address], [place] [address] Apr, [facility] [address] [id number] [address] [place] [address], [place] [address] Apr, [facility] [address] [id number] [address] [place] [address], [place] [address] Apr, [facility] [address] [id number] [address] [place] [address], [place] [address] Apr, [facility] [address] [id number] [address] [place] [id number] 08 Apr, 2012 [facility] [address] [id number] [address] [place] [address], [place] [address] 07 Apr, 2012 [facility] [address] [id number] [address] [place] [id number] Apr, [facility] [address] [address] [id number] [address] [place] [id number] Apr, [facility] [address] [id number] [address] [place] [id number] Apr, [facility] [address] [id number] [address] [place] [address], [place] [address] Mar, [facility] [address] [id number] [address] [place] [id number] Mar, [facility] [address] [id number] [address] [place] [id number] Mar, [facility] [address] [id number] [address] [place] [id number] Mar, [facility] [address] [id number] [address] [place] [phone] Mar, [facility] [address] [id number] [address] [place] [id number] Mar, [facility] [address] [id number] [address] [place] [phone] Mar, [facility] [address] [id number] [address] [place] [phone] Mar, [facility] [address] [id number] [address] [place] [address], [place] [id number] Mar, [facility] [address] [id number] [address] [place] [id number] 25 Feb, 2012 [facility] [address] [id number] [address] [place] [id number] 16 Sep2011 [facility] [address] [id number] [address] [place] [address], [place] [id number] Feb, [facility] [address] [id number] [address] [place] [address], [place] [address] Jan, [facility] [address] [id number] [address] [place] [address], [place] [address] Jan, [facility] [address] [id number] [address] [place] [address], [place] [address] Jan, [facility] [address] [id number] [address] [place] [address], [place] [id number] Jan, [facility] [address] [id number] [address] [place] [address], [place] [address] Jan, [facility] [address] [id number] [address] [place] [address], [place] [address] Jan, [facility] [address] [id number] [address] [place] [address], [place] [address] Jan, [facility] [address] [id number] [address] [place] [address], [place] [address] Jan, [facility] [address] [id number] [address] [place] [address], [place] [address] Jan, [facility] [address] [id number] [address] [place] [address], [place] [address] Jan, [facility] [address] [id number] [address] [place] [address], [place] [address] Dec, [facility] [address] [id number] [address] [place] [address], [place] [address] Dec, [facility] [address] [id number] [address] [place] [address], [place] [address] Dec, [facility] [address] [id number] [address] [place] [address], [place] [address] Dec, [facility] [address] [id number] [address] [place] [address], [place] [address] Nov, [facility] [address] [id number] [address] [place] [address], [place] [address] 08 Nov, 2011 [facility] [address] [id number] [address] [place] [address], [place] [address] Nov, [facility] [address] [id number] [address] [place] [address], [place] [address] October, [facility] [address] [id number] [address] [place] [address], [place] [address] October, [facility] [address] [id number] [address] [place] [address], [place] [address] October, [facility] [address] [id number] [address] [place] [address], [place] [address] October, [facility] [address] [id number] [address] [place] [address], [place] [address] October, [facility] [address] [id number] [address] [place] [address], [place] [address] October, [facility] [address] [id number] [address] [place] [address], [place] [address] Aug, [facility] [address] [id number] [address] [place] [address], [place] [address] Mar, [facility] [address] [id number] [address] [place] [address], [place] [address] Nov, [facility] [address] [id number] [address] [place] [address], [place] [address] May, [facility] [address] [id number] [address] [place] [address], [place] [address] May, [facility] [address] [id number] [address] [place] [address], [place] [address] Apr, [facility] [address] [id number] [address] [place] [address], [place] [address] 15 Mar, 2010 [facility] [address] [id number] [address] [place] [phone] Mar, IMMUNIZATIONS No Known Immunizations SOCIAL HISTORY Never Assessed REASON FOR VISIT pt thinks she has a UTI...gets chronic UTIs. bladder spasms, lower flank pain bi laterally since early this am. pt sees dr hutchinson and is suppose to be on macrobid ...quit taking a month ago due to frequent yeast infections. [email or web address] PLAN OF CARE Activity Details Follow Up prn Reason: VITAL SIGNS Height 64 in 2017-05-27 Weight 160.4 lbs 2017-05-27 Temperature 97.7 degrees Fahrenheit 2017-05-27 Heart Rate 90 bpm 2017-05-27 Respiratory Rate 20 2017-05-27 BMI 27.53 kg/m2 2017-05-27 Blood pressure systolic 122 mmHg 2017-05-27 Blood pressure diastolic 76 mmHg 2017-05-27 MEDICATIONS Medication Instructions Dosage Frequency Start Date End Date Duration S tatus Melatonin 5 MG Orally at bedtime 1 Tablet by Oral route 1 time per day HS Active Ibuprofen 200 MG Orally every 6 hrs 1 tablet as needed 6h Not-Taking Flonase 50 MCG/ACT Nasally twice a day 1 spray in each nostril 12h Jan, Active Diflucan 150 MG Orally Once a day 1 tablet and may repeat in 3 days 24h Apr, Not-Taking Vitamin D3 2000 UNIT Orally Once a day as directed 24h Dec, Active Pantoprazole Sodium 20 MG TAKE 1 TABLET BY MOUTH ONCE DAILY 30 Active Diflucan 100 MG Orally every 72 hours 1 tablet May, May, 3 days Active Voltaren 1 % Transdermal 4 times a day on neck Active Probiotic Acidophilus Ac tive Selenium 50 MCG Orally Once a day 1 tablet 24h Active Depakote ER 500 mg Orally at bedtime 2 tabs 30 days Active Nitrofurantoin Macrocrystal 100 MG Orally Once a day 1 cap isabel with food or milk 24h Active Cetirizine HCl 10 mg Orally Once a day 1 tablet 24h Jan, 7 Jan, 90 days Active Magnesium 500 MG Orally Once a day 1 tablet with a meal 24h Dec, Active Pyridium 100 MG Orally Three times a day 2 tablets after meals 8h May, May, 2 day(s) Active HydrOXYzine HCl 10 mg Orally BID prn anxiety, MAX 45 tabs monthly 1 t ablet 30 days Active Vagifem 10 MCG Vaginal Two times a Week 1 tablet Active Flexeril 10 mg by oral route 2 times a day 1 tablet 12h 18 Aug, 2014 30 Active Macrodantin 100 MG Orally bid 1 capsule with food or milk 12h 10 May, 2017 May, 10 days Active Multi Vitamin Daily Orally Once a day 1 tablet 24h Active Mucinex 600 MG Orally every 12 hrs 1 tablet as needed 12h Not-Taking Myrbetriq 50 MG Orally Once a day 1 tablet 24h Active T57-[id number] 1 MG Active Fetzima 120 mg Orally Once a day TAKE 1 CAPSULE BY MOUTH DAILY 24h 30 days Active Estradiol 2 MG Orally Once a day 1 tablet 24h Active RESULTS No Results PROCEDURES Procedure Date Ordered Result Body Site URINALYSIS, AUTO, W/O SCOPE May 27, 2017 FQ VISIT ESTABLISHED PATIENT May 27, 2017 LAB NOT BILLED BY [facility] May 27, 2017 INSTRUCTIONS MEDICATIONS ADMINISTERED No Known Medications MEDICAL (GENERAL) HISTORY Type Description Date Medical History Severe spinal stenosis [facility] cervical spine CT and MRI done 10/2014 at [facility] with Neurosurgery at Medical History [...]
--- OUTSIDE RECORDS SUMMARY | 2019-06-19 05:54 | XMS REPORT ---
Author Author Sydnie SQUIRES Organization [facility] Address [address] [place] [address] Care Team Providers Care Cell Liner Name Role Phone MIRIAN SQUIRES Unavailable PROBLEMS Type Condition ICD9-CM Code [id number] Code Onset Dates Condition S tatus SNOMED Code Problem Hormone replacement therapy Z79.890 Ac tive 020826234 Problem Abnormal CT scan, head R93.0 Active 148639481 Problem Sensorineural hearing loss (SNHL) of both ears H90 .3 Active 107797637 Problem History of colon polyps Z86.010 Active 098337827 Problem Bruising, spontaneous R23.3 Active 594074478 Problem Generalized anxiety disorder F41.1 A ctive 44190676 Problem Arthralgia of hip, unspecified laterality M25.559 Active 28370184 Problem Hematuria, unspecified type R31.9 Ac tive 93610421 Problem Imbalance R26.89 Active 404786253 Problem Hammer toe of right foot M20.41 Activ e 158634027 Problem Plantar wart of right foot B07.0 Act mitchell [id number] Problem Sciatica of left side M54.32 Active 99347284 Problem Hyperlipidemia, unspecified hyperlipidemia type E7 8.5 Active 45415319 Problem Hypertension I10 Active 1887351 3 Problem Night sweats R61 Active 8038573 0 Problem Fibromyalgia M79.7 Active 1860478 7 Problem Major depressive disorder, recurrent episode, moderate F33.1 Active 451234984 Problem Acute left-sided low back pain with left-sided sciatica M54.42 Active 658449266 Problem Bladder spasm N32.89 Active 310362 006 Problem Gastritis without bleeding, unspecified chronicity, unspecified gastritis type K29.70 Active 876954415 Problem Bipolar 1 disorder, mixed F31.60 Acti ve 51360391 Problem Grief F43.20 Active 95891745 Problem Other chronic pain G89.29 Active 8 5196747 Problem Allergic rhinitis J30.9 Active 61 686714 Problem Hot flashes due to menopause N95.1 A ctive 697475967 Problem Ataxia R27.0 Active 71153896 Problem Hearing loss, unspecified laterality H91.90 Active 26797270 ALLERGIES No Information ENCOUNTERS Encounter Location Date Diagnosis [facility] [address] [facility] [id number] [address] [place] [id number] Dec, [facility] [address] [facility] [id number] [address] [place] [phone] Dec, [facility] [address] [facility] [id number] [address] [place] [id number] Dec, [facility] [address] [facility] [id number] [address] [place] [phone] Dec, [facility] [address] [facility] [id number] [address] [place] [phone] Nov, [facility] [address] [facility] [id number] [address] [place] [address] Nov, Bipolar 1 disorder, mixed F3 1.60 [facility] [address] [facility] [id number] [address] [place] [id number] Nov, Allergic rhinitis J30.9 [facility] [address] [facility] [id number] [address] [place] [address] Nov, Allergic rhinitis J30.9 [facility] [address] [facility] [id number] [address] [place] [address] Nov, [facility] [address] [facility] [id number] [address] [place] [phone] Nov, Bipolar 1 disorder, mixed F3 1.60 [facility] [address] [facility] [id number] [address] [place] [address] Nov, Fibromyalgia M79.7 and Aller gic rhinitis J30.9 [facility] [address] [facility] [id number] [address] [place] [address] October, Bipolar 1 disorder, mixed F3 1.60 [facility] [address] [facility] [id number] [address] [place] [phone] October, Acute nasopharyngitis J00 [facility] [address] [facility] [id number] [address] [place] [address] October, Bitten or stung by nonvenomo us insect and other nonvenomous arthropods, initial encounter W57.XXXA and Insect bite (nonvenomous) of abdominal wall, initial encounter S30.861A [facility] [address] [facility] [id number] [address] [place] [address] October, Insect bite (nonvenomous) of abdominal wall, initial encounter S30.861A ; Bitten or stung by nonvenomous insect and other nonvenomous arthropods, initial encounter W57.XXXA ; Allergic rhinitis J30.9 and Low back pain M54.5 [facility] [address] [place] [id number] [address] [place] [address] October, Bipolar 1 disorder, mixed F3 1.60 [facility] [address] [facility] [id number] [address] [place] [address] October, [facility] [address] [place] [id number] [address] [place] [address] October, [facility] [address] [place] [id number] [address] [place] [address] October, Bipolar 1 disorder, mixed F3 1.60 [facility] [address] [place] [id number] [address] [place] [address] Sep, Bipolar 1 disorder, mixed F3 1.60 [facility] [address] [facility] [id number] [address] [place] [address] Sep, Other chronic pain G89.29 [facility] [address] [facility] [id number] [address] [place] [address] Sep, [facility] [address] [place] [id number] [address] [place] [phone] Sep, Bipolar 1 disorder, mixed F3 1.60 [facility] [address] [facility] [id number] [address] [place] [phone] Sep, Allergic rhinitis J30.9 and Sciatica of left side M54.32 [facility] [address] [facility] [id number] [address] [place] [phone] Sep, Bipolar 1 disorder, mixed F3 1.60 [facility] [address] [facility] [id number] [address] [place], [place] [address] Sep, Bipolar 1 disorder, mixed F3 1.60 and Generalized anxiety disorder F41.1 [facility] [address] [place] [id number] [address] [place], [place] [address] Aug, [facility] [address] [place] [id number] [address] [place] [phone] Aug, Bipolar 1 disorder, mixed F3 1.60 [facility] [address] [place] [id number] [address] [place] [address] Aug, Bipolar 1 disorder, mixed F3 1.60 [facility] [address] [facility] [id number] [address] [place] [address] Aug, [facility] [address] [place] [id number] [address] [place] [phone] Aug, Generalized anxiety disorder F41.1 [facility] [address] [place] [id number] [address] [place] [phone] Aug, Bipolar 1 disorder, mixed F3 1.60 [facility] [address] [facility] [id number] [address] [place] [address] Aug, Plantar wart of right foot B 07.0 [facility] [address] [facility] [id number] [address] [place], [place] [address] Aug, Bipolar 1 disorder, mixed F3 1.60 [facility] [address] [place] [id number] [address] [place] [address] Jul, Bipolar 1 disorder, mixed F3 1.60 [facility] [address] [facility] [id number] [address] [place] [address] Jul, [facility] [address] [facility] [id number] [address] [place] [id number] 14 Jul, 2017 Bipolar [address] disorder, [address] F[address].60 [facility] [address] [facility] [id number] [address] [place] [phone] Jul, Generalized anxiety disorder F41.1 [facility] [address] [facility] [id number] [address] [place] [address] Jul, Bipolar 1 disorder, mixed F3 1.60 [facility] [address] [facility] [id number] [address] [place] [address] Jul, Acute left-sided low back pa in with left-sided sciatica M54.42 [facility] [address] [place] [id number] [address] [place] [address] Jul, Coccydynia M53.3 [facility] [address] [facility] [id number] [address] [place] [address] Jun, Bipolar 1 disorder, mixed F3 1.60 [facility] [address] [facility] [id number] [address] [place] [id number] Jun, Acute nasopharyngitis J00 [facility] [address] [facility] [id number] [address] [place] [address] Jun, Bipolar 1 disorder, mixed F3 1.60 [facility] [address] [facility] [id number] [address] [place] [address] Jun, Fibromyalgia M79.7 [facility] [address] [facility] [id number] [address] [place] [phone] Jun, Bipolar 1 disorder, mixed F3 1.60 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 [place] [address] [place] [id number] [address] [place] [address] May, Bipolar 1 disorder, mixed F3 1.60 [facility] [address] [address] 14 May, 2017 Cough R05 and Body aches R52 [facility] [address] [address] 10 May, 2017 Bladder spasm N32.89 [address] Acu te cystitis without hematuria N30.00 [place] [address] [address] 07 May, 2017 Bipolar 1 disorder, mixed F3 1.60 [place] [address] [address] 30 Apr, 2017 [place] [address] [address] Apr, Major depressive disorder, r ecurrent episode, moderate F33.1 and Encounter for immunization Z23 [place] [address] [address] Apr, Bipolar 1 disorder, mixed F3 1.60 [place] [address] [address] Apr, Bipolar 1 disorder, mixed F3 1.60 [place] [address] [address] 16 Apr, 2017 Bipolar 1 disorder, mixed F3 1.60 [place] [address] [address] 13 Apr, 2017 Yeast vaginitis B37.3 [place] [address] [place] [id number] [place] [address] 09 Apr, 2017 Bipolar 1 disorder, mixed F3 1.60 [facility] [address] [place] [id number] [address] [place], [place] [address] 07 Apr, 2017 Cellulitis L03.[address] for immunization Z23 [facility] [address] [place] [address] Apr, Bipolar 1 disorder, mixed F3 1.60 [facility] [address] [place] [id number] [address] [place] [address] Mar, Bipolar 1 disorder, mixed F3 1.60 [facility] [address] [address] Mar, Bipolar 1 disorder, mixed F3 1.60 [facility] [address] [address] Mar, Imbalance R26.89 and Encount er for immunization Z23 [facility] [address] [place] [id number] [address] [place] [address] Mar, Generalized anxiety disorder F41.1 [facility] [address] [address] Mar, Bipolar 1 disorder, mixed F3 1.60 [facility] [address] [place] [id number] [address] [place] [address] Mar, Generalized anxiety disorder F41.1 [facility] [address] [place] [id number] [address] [place] [address] Mar, Bipolar 1 disorder, mixed F3 1.60 [facility] [address] [place] [id number] [address] [place] [address] Mar, Bipolar 1 disorder, mixed F3 1.60 [facility] [address] [place] [id number] [address] [place] [address] Feb, Bipolar 1 disorder, mixed F3 1.60 [facility] [address] [id number] [place] [address], [place] [address] Feb, Bipolar 1 disorder, mixed F3 1.60 and Generalized anxiety disorder F41.1 [place] [address] [address] Feb, Gastritis without bleeding, unspecified chronicity, unspecified gastritis type K29.70 ; Hammer toe of right foot M20.41 and Other viral warts B07.8 [place] [address] [address] Feb, Bipolar 1 disorder, mixed F3 1.60 [place] [address] [address] Feb, Bipolar 1 disorder, mixed F3 1.60 [place] [address] [address] 05 Feb, 2017 Bipolar 1 disorder, mixed F3 1.60 [place] [address] [address] Jan, Encounter for screening mamm ogram for breast cancer Z12.31 ; Other viral warts B07.8 and Allergic rhinitis J30.9 [place] [address] [address] Jan, Bipolar 1 disorder, mixed F3 1.60 [place] [address] [address] Jan, Bipolar 1 disorder, mixed F3 1.60 [place] [address] [place] [id number] [address] [place] [address] Jan, [place] [address] [address] Jan, Bipolar 1 disorder, mixed F3 1.60 [place] [address] [address] Jan, Bipolar 1 disorder, mixed F3 1.60 [place] [address] [address] Jan, Allergic rhinitis J30.9 ; He maturia R31.9 and Colon cancer screening Z12.11 [place] [address] [place] [id number] [address] [place] [address] Dec, Bipolar 1 disorder, mixed F3 1.60 [place] [address] [place] [id number] [address] [place] [address] Dec, Bipolar 1 disorder, mixed F3 1.60 ; Generalized anxiety disorder F41.1 and 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 [place] [address] [place] [id number] [address] [place] [address] Dec, Bipolar 1 disorder, mixed F3 1.60 [place] [address] [place] [id number] [address] [place] [address] Dec, Bipolar 1 disorder, mixed F3 1.60 [place] [address] [place] [id number] [address] [place] [address] Dec, Bipolar 1 disorder, mixed F3 1.60 [place] [address] [place] [id number] [address] [place] [address] Dec, Low back pain M54.5 and Recu rrent urinary tract infection N39.0 [place] [address] [place] [id number] [address] [place] [address] Nov, Bipolar 1 disorder, mixed F3 1.60 [place] [address] [place] [id number] [address] [place] [address] Nov, Bipolar 1 disorder, mixed F3 1.60 [place] [address] [place] [id number] [address] [place] [address] Nov, Bipolar 1 disorder, mixed F3 1.60 [place] [address] [place] [id number] [address] [place] [address] Nov, Bipolar 1 disorder, mixed F3 1.60 [place] [address] [place] [id number] [address] [place] [address] Nov, [place] [address] [address] Nov, Anesthesia of skin R20.0 ; F requent UTI N39.0 ; Tobacco abuse Z72.0 and Colon cancer screening Z12.11 [place] [address] [place] [id number] [address] [place] [address] Nov, Bipolar 1 disorder, mixed F3 1.60 [place] [address] [address] October, Bipolar 1 disorder, mixed F3 1.60 [place] [address] [place] [address] October, Bipolar 1 disorder, mixed F3 1.60 [place] [address] [address] October, Bipolar 1 disorder, mixed F3 1.60 [place] [address] [address] October, Bipolar 1 disorder, mixed F3 1.60 [place] [address] [address] October, Bipolar 1 disorder, mixed F3 1.60 [place] [address] [address] October, Cervicalgia M54.2 and Bipola r 1 disorder, mixed F31.60 [place] [address] [place] [id number] [address] [place] [address] October, Hypertension I10 ; Hyperlipi demia, unspecified hyperlipidemia type E78.5 and Family history of thyroid disease Z83.49 [place] [address] [place] [id number] [address] [place] [address] October, [place] [address] [place] [id number] [place] [address] October, Hypertension I10 ; Hyperlipi demia, unspecified hyperlipidemia type E78.5 and Family history of thyroid problem Z83.49 [place] [address] [place] [id number] [address] [place], [place] [id number] October, Bipolar 1 disorder, mixed F3 1.60 [place] [address] [place] [id number] [address] [place] [address] Sep, Bipolar 1 disorder, mixed F3 1.60 [place] [address] [place] [id number] [address] [place] [address] Sep, Bipolar 1 disorder, mixed F3 1.60 [place] [address] [address] Sep, Bipolar 1 disorder, mixed F3 1.60 [place] [address] [place] [id number] [place] [address] Sep, History of colon polyps Z86. 010 and Hematochezia K92.1 [place] [address] [place] [address] Sep, Major depressive disorder, r ecurrent episode, moderate F33.1 [place] [address] [place] [id number] [address] [place] [address] Sep, Bipolar 1 disorder, mixed F3 1.60 [place] [address] [place] [id number] [address] [place] [address] Aug, Hot flashes due to menopause N95.1 [facility] [address] [place] [id number] [address] [place] [address] Aug, Bipolar 1 disorder, mixed F3 1.60 [place] [address] [place] [address] Aug, [place] [address] [place] [id number] [address] [place] [address] Aug, Bipolar 1 disorder, mixed F3 1.60 [place] [address] [place] [id number] [address] [place] [address] Aug, Bipolar 1 disorder, mixed F3 1.60 [place] [address] [address] Aug, Hot flashes due to menopause N95.1 ; Cervicalgia M54.2 and Ataxia R27.0 [place] [address] [address] Jul, Bipolar 1 disorder, mixed F3 1.60 [place] [address] [place] [address] Jul, Bipolar 1 disorder, mixed F3 1.60 [place] [address] Jul, Bipolar 1 disorder, mixed F3 1.60 [place] [address] [address] Jul, Bipolar 1 disorder, mixed F3 1.60 [place] [address] [address] Jul, Bipolar 1 disorder, mixed F3 1.60 [place] [address] [address] Jul, Cervicalgia M54.2 ; Tremor R 25.1 ; Hearing abnormally acute, unspecified laterality H93.239 ; Alopecia L65.9 ; Encounter for immunization Z23 and Family history of thyroid disease Z83.49 [place] [address] [address] Jul, Bipolar 1 disorder, mixed F3 1.60 [place] [address] [place] [id number] Jun, [place] [address] [place] [id number] Jun, Hearing disorder, unspecifie d laterality H93.299 [place] [address] [place] [id number] Jun, Bipolar 1 disorder, mixed F3 1.60 [facility] [address] [id number] [address] [place] [address] Jun, Bipolar 1 disorder, mixed F3 1.60 [facility] [address] [id number] [address] [place] [address] Jun, Allergic rhinitis J30.9 [facility] [address] [id number] [address] [place] [address] Jun, Bipolar 1 disorder, mixed F3 1.60 [facility] [address] [id number] [address] [place] [address] Jun, Bipolar 1 disorder, mixed F3 1.60 [facility] [address] [id number] [address] [place] [address] Jun, Allergic rhinitis J30.9 [facility] [address] [id number] [address] [place] [address] Jun, Allergic rhinitis J30.9 [facility] [address] [id number] [address] [place] [address] Jun, Bipolar 1 disorder, mixed F3 1.60 [facility] [address] [id number] [address] [place] [address] May, Bipolar 1 disorder, mixed F3 1.60 [facility] [address] [id number] [address] [place] [address] May, Bipolar 1 disorder, mixed F3 1.60 [facility] [address] [id number] [address] [place] [address] May, [facility] [address] [facility] [id number] [address] [place] [address] May, Bipolar 1 disorder, mixed F3 1.60 [facility] [address] [facility] [id number] [address] [place] [address] May, Bipolar 1 disorder, mixed F3 1.60 [facility] [address] [facility] [id number] [address] [place] [id number] May, [facility] [address] [facility] [id number] [address] [place] [id number] May, [facility] [address] [facility] [id number] [address] [place] [phone] May, [facility] [address] [place] [id number] [address] [place] [id number] May, Abdominal pain, unspecified location R10.9 [facility] [address] [facility] [id number] [address] [place] [id number] May, [facility] [address] [place] [id number] [place] [id number] Apr, Hematuria R31.9 ; Ataxia R27 .0 and Hearing loss, unspecified laterality H91.90 [facility] [address] [place] [id number] [address] [place] [id number] Apr, Bipolar 1 disorder, mixed F3 1.60 [facility] [address] [facility] [id number] [address] [place] [phone] Apr, Acute effusion of both middl e ears H65.193 [facility] [address] [facility] [id number] [address] [place] [id number] Apr, Hematuria R31.9 [address] h[address] N12 [facility] [address] [facility] [id number] [address] [place] [id number] Apr, [facility] [address] [facility] [id number] [address] [place] [phone] Mar, Bipolar 1 disorder, mixed F3 1.60 [facility] [address] [facility] [id number] [address] [place] [phone] Mar, [facility] [address] [facility] [id number] [address] [place] [id number] Mar, Bipolar 1 disorder, mixed F3 1.60 [place] [address] [place] [id number] [address] [place] [id number] Mar, Bipolar 1 disorder, mixed F3 1.60 [place] [id number] Mar, Encounter for immunization Z 23 and Gastritis without bleeding, unspecified chronicity, unspecified gastritis type K29.70 [place] [address] [place] [address] Mar, Bipolar 1 disorder, mixed F3 1.60 and Grief F43.20 [place] [id number] Mar, Gastritis without bleeding, unspecified chronicity, unspecified gastritis type K29.70 [place] [id number] Mar, Bipolar 1 disorder, mixed F3 1.60 [place] [address] [place] [id number] Mar, Gastritis without bleeding, unspecified chronicity, unspecified gastritis type K29.70 [place] [address] [place] [id number] Mar, [place] [address] [place] [id number] Feb, Bipolar 1 disorder, mixed F3 1.60 [place] [address] [place] [id number] Feb, Bipolar 1 disorder, mixed F3 1.60 and Grief F43.20 [place] [address] [place] [id number] Feb, Gastritis without bleeding, unspecified chronicity, unspecified gastritis type K29.70 [place] [address] [place] [id number] [address] [place], [place] [address] 14 Feb, 2016 Bipolar 1 disorder, mixed F3 1.60 [facility] [address] [facility] [id number] [address] [place] [id number] Feb, Gastroesophageal reflux dise ase, esophagitis presence not specified K21.9 [facility] [address] [facility] [id number] [address] [place] [address] Jan, Bipolar 1 disorder, mixed F3 1.60 [facility] [address] [place] [id number] [address] [place] [id number] Jan, Bipolar 1 disorder, mixed F3 1.60 [address] Unsteady gait R26.81 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 [place] [address] [address] Jan, Bipolar 1 disorder, mixed F3 1.60 [place] [address] [address] Jan, Bipolar 1 disorder, mixed F3 1.60 [place] [address] [place] [id number] [address] [place] [address] Jan, Bipolar 1 disorder, mixed F3 1.60 ; Grief F43.20 and 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 [address] [facility] [id number] [address] [place] [id number] Dec, Bipolar 1 disorder, mixed F3 1.60 [facility] [address] [facility] [id number] [address] [place] [id number] Dec, Major depressive disorder, r ecurrent episode, moderate F33.1 [place] [address] [facility] [id number] [address] [place] [address] Dec, Major depressive disorder, r ecurrent episode, moderate F33.1 [place] [address] [facility] [id number] [address] [place] [address] Nov, [place] [address] [facility] [id number] [address] [place] [id number] Nov, Bipolar 1 disorder, mixed F3 1.60 [place] [address] [facility] [id number] [address] [place] [address] Nov, Major depressive disorder, r ecurrent episode, moderate F33.1 [place] [address] [facility] [id number] [address] [place] [address] Nov, Cervicalgia M54.2 ; Arthralg ia of hip, unspecified laterality M25.559 ; Allergic rhinitis J30.9 and Hormone replacement therapy Z79.890 [facility] [address] [facility] [id number] [address] [place] [id number] Nov, Other seasonal allergic rhin itis J30.2 [facility] [address] [facility] [id number] [address] [place] [id number] October, Major depressive disorder, r ecurrent episode, moderate F33.1 [facility] [address] [facility] [id number] [address] [place] [address] October, Major depressive disorder, r ecurrent episode, moderate F33.1 and Arthralgia of hip, unspecified laterality M25.559 [place] [address] [facility] [id number] [address] [place], [place] [address] October, Grief F43.20 ; Hypertension I10 ; Hyperlipidemia, unspecified hyperlipidemia type E78.5 ; Other chronic pain G89.29 and Allergic rhinitis, unspecified allergic rhinitis type J30.9 [place] [address] [facility] [id number] [address] [place] [address] October, Major depressive disorder, r ecurrent episode, moderate F33.1 [place] [address] [facility] [id number] [address] [place] [address] Sep, Major depressive disorder, r ecurrent episode, moderate F33.1 [place] [address] [place] [id number] [address] [place] [address] Sep, [place] [address] [place] [id number] [address] [place] [address] Sep, Major depressive disorder, r ecurrent episode, moderate F33.1 [place] [address] [facility] [id number] [address] [place] [address] Sep, Grief F43.20 [place] [address] [place] [id number] [address] [place] [address] Aug, Major depressive disorder, r ecurrent episode, moderate F33.1 [place] [address] [place] [id number] [address] [place] [id number] Aug, Bipolar 1 disorder, mixed F3 1.60 [place] [address] [facility] [id number] [address] [place] [address] Aug, Allergic rhinitis J30.9 ; Ce rvicalgia M54.2 and Low back pain M54.5 [place] [address] [facility] [id number] [address] [place] [address] Aug, Major depressive disorder, r ecurrent episode, moderate F33.1 [facility] [address] [id number] [address] [place] [address] Aug, Sinusitis J32.9 and Tobacco 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 [facility] [address] [id number] [address] [place] [phone] Aug, [facility] [address] [facility] [id number] [address] [place] [address] Aug, Depressive disorder, not els ewhere classified F32.9 ; Hormone replacement therapy Z79.[address] scan, head R93.0 [facility] [address] [id number] [address] [place] [address] Aug, Major depressive disorder, r ecurrent episode, moderate F33.1 [facility] [address] [facility] [id number] [address] [place] [address] Jul, Major depressive disorder, r ecurrent episode, moderate F33.1 [facility] [address] [facility] [id number] [address] [place] [address] Jul, Abdominal pain R10.9 and Hyp ertension I10 [facility] [address] [facility] [id number] [address] [place] [address] Jul, [facility] [address] [facility] [id number] [address] [place] [id number] Jul, Major depressive disorder, r ecurrent episode, moderate F33.1 [facility] [address] [facility] [id number] [address] [place] [address] Jul, [facility] [address] [facility] [id number] [address] [place] [id number] Jul, [facility] [address] [facility] [id number] [address] [place] [id number] Jun, [facility] [address] [facility] [id number] [address] [place] [id number] Jun, Depressive disorder, not els ewhere classified F32.9 [facility] [address] [id number] [address] [place] [address] Jun, [facility] [address] [id number] [address] [place] [id number] Jun, [facility] [address] [id number] [address] [place] [id number] Jun, Arthralgia of hip, unspecifi ed laterality M25.559 ; Bruising, spontaneous R23.[address] [facility] [address] [id number] [address] [place] [address] Jun, [facility] [address] [id number] [address] [place] [id number] Jun, [facility] [address] [facility] [id number] [address] [place] [address] May, [facility] [address] [id number] [address] [place] [address] May, Myalgia M79.1 and Screening, lipid Z13.220 [facility] [address] [id number] [address] [place] [address] Apr, Status post cervical spinal fusion Z98.1 ; Fibromyalgia M79.7 and Unsteady gait R26.81 [facility] [address] [id number] [address] [place] [address] Nov, [facility] [address] [id number] [address] [place] [id number] Nov, [facility] [address] [id number] [address] [place] [id number] October, [facility] [address] [id number] [address] [place] [id number] October, [facility] [address] [facility] [id number] [address] [place] [id number] October, [facility] [address] [id number] [address] [place] [id number] October, [facility] [address] [id number] [address] [place] [id number] October, [facility] [address] [id number] [address] [place] [address] October, Dysuria 788.1 ; Nausea 787.0 2 and Urinary tract infection 599.0 [facility] [address] [id number] [address] [place] [address] Sep, [facility] [address] [id number] [address] [place] [id number] Sep, [facility] [address] [id number] [address] [place] [id number] Aug, [facility] [address] [id number] [address] [place] [id number] Aug, [facility] [address] [id number] [address] [place] [id number] Aug, [facility] [address] [id number] [address] [place] [id number] Aug, [facility] [address] [id number] [address] [place] [id number] Aug, [facility] [address] [id number] [address] [place] [id number] Aug, [facility] [address] [id number] [address] [place] [id number] Aug, [facility] [address] [id number] [address] [place] [id number] Aug, [facility] [address] [id number] [address] [place] [id number] Aug, [facility] [address] [id number] [address] [place] [id number] Aug, [facility] [address] [id number] [facility] [place] [address] 18 Aug, 2014 [facility] [address] [id number] [facility] [place] [address] 13 Aug, 2014 [facility] [address] [id number] [address] [place] [address], [place] [address] 13 Aug, 2014 [facility] [address] [id number] [address] [place] [address], [place] [address] Aug, 2014 [facility] [address] [id number] [address] [place] [address], [place] [address] 11 Aug, 2014 [facility] [address] [id number] [address] [place] [address], [place] [address] Aug, [facility] [address] [id number] [address] [place] [address], [place] [address] Aug, 2014 [facility] [address] [id number] [address] [place] [address], [place] [address] 05 Aug, 2014 [facility] [address] [id number] [address] [place] [address], [place] [address] 05 Aug, 2014 [facility] [address] [id number] [address] [place] [address], [place] [address] Aug, [facility] [address] [id number] [address] [place] [address], [place] [address] Aug, [facility] [address] [id number] [address] [place] [address], [place] [address] Aug, [facility] [address] [id number] [address] [place] [address], [place] [address] Jul, [facility] [address] [id number] [address] [place] [address], [place] [address] Jul, [facility] [address] [id number] [address] [place] [address], [place] [address] Jul, [facility] [address] [id number] [address] [place] [address], [place] [address] Jul, [facility] [address] [id number] [address] [place] [address], [place] [address] Jul, [facility] [address] [id number] [address] [place] [address], [place] [address] Jul, [facility] [address] [id number] [address] [place] [address], [place] [address] Jul, 2014 [facility] [address] [id number] [address] [place] [address], [place] [address] Jul, 2014 [facility] [address] [id number] [address] [place] [address], [place] [address] Jul, [facility] [address] [id number] [address] [place] [address], [place] [address] Jul, [facility] [address] [id number] [address] [place] [address], [place] [address] Jul, [facility] [address] [id number] [address] [place] [address], [place] [address] Jul, [facility] [address] [id number] [address] [place] [address], [place] [address] Jul, [facility] [address] [id number] [address] [place] [address], [place] [address] Jul, [facility] [address] [id number] [address] [place] [address], [place] [address] Jun, [facility] [address] [id number] [address] [place] [address], [place] [address] Jun, [facility] [address] [id number] [address] [place] [address], [place] [address] Jun, [facility] [address] [id number] [address] [place] [address], [place] [address] Jun, [facility] [address] [id number] [address] [place] [address], [place] [address] Jun, [facility] [address] [id number] [address] [place] [address], [place] [address] Jun, [facility] [address] [id number] [address] [place] [address], [place] [address] May, [facility] [address] [id number] [address] [place] [address], [place] [address] May, [facility] [address] [id number] [address] [place] [address], [place] [address] May, [facility] [address] [id number] [address] [place] [address], [place] [address] May, [facility] [address] [id number] [address] [place] [address], [place] [address] May, [facility] [address] [id number] [address] [place] [address], [place] [address] May, [facility] [address] [id number] [address] [place] [address], [place] [address] Apr, [facility] [address] [id number] [address] [place] [address], [place] [address] Apr, [facility] [address] [id number] [address] [place] [address], [place] [address] Apr, [facility] [address] [id number] [address] [place] [address], [place] [address] Apr, [facility] [address] [id number] [address] [place] [address], [place] [address] Apr, [facility] [address] [id number] [address] [place] [address], [place] [address] Apr, [facility] [address] [id number] [address] [place] [address], [place] [address] Mar, [facility] [address] [id number] [address] [place] [address], [place] [address] Mar, [facility] [address] [id number] [address] [place] [address], [place] [address] Mar, [facility] [address] [id number] [address] [place] [address], [place] [address] Mar, 2013 [facility] [address] [id number] [address] [place] [address], [place] [address] Mar, 2013 [facility] [address] [id number] [address] [place] [address], [place] [address] Mar, 2013 [facility] [address] [id number] [address] [place] [address], [place] [address] Mar, 2013 [facility] [address] [id number] [address] [place] [address], [place] [address] Mar, 2013 [facility] [address] [id number] [address] [place] [address], [place] [address] Mar, 2013 [facility] [address] [id number] [address] [place] [address], [place] [address] Mar, 2013 [facility] [address] [id number] [address] [place] [address], [place] [address] Mar, 2013 [facility] [address] [id number] [address] [place] [address], [place] [address] Mar, [facility] [address] [id number] [address] [place] [id number] 30 Feb, 2013 [facility] [address] [id number] [address] [place] [id number] 29 Sep, 2013 [facility] [address] [id number] [address] [place] [id number] 29 Sep, 2013 [facility] [address] [id number] [address] [place] [address], [place] [address] 23 Sep, 2013 [facility] [address] [id number] [address] [place] [place] [address], [place] [address] 23 Feb, 2013 [facility] [address] [id number] [address] [place] [id number] 08 Sep, 2013 [facility] [address] [id number] [address] [place] [id number] Feb, [facility] [address] [id number] [facility] [place] [address] Jan, [facility] [address] [id number] [address] [place] [address], [place] [address] Jan, [facility] [address] [id number] [address] [place] [address], [place] [address] Jan, [facility] [address] [id number] [address] [place] [address], [place] [address] Dec, [facility] [address] [id number] [address] [place] [address], [place] [address] Dec, [facility] [address] [id number] [address] [place] [address], [place] [address] Dec, [facility] [address] [id number] [address] [place] [address], [place] [address] Dec, [facility] [address] [id number] [address] [place] [address], [place] [address] Sep, [facility] [address] [id number] [address] [place] [address], [place] [address] Sep, [facility] [address] [id number] [address] [place] [address], [place] [address] Sep, [facility] [address] [id number] [address] [place] [address], [place] [address] Sep, [facility] [address] [id number] [address] [place] [address], [place] [address] Sep, [facility] [address] [id number] [address] [place] [address], [place] [address] Sep, [facility] [address] [id number] [address] [place] [address], [place] [address] Sep, [facility] [address] [id number] [address] [place] [address], [place] [address] Sep, [facility] [address] [id number] [address] [place] [address], [place] [address] 10 Aug, 2013 [facility] [address] [id number] [address] [place] [address], [place] [address] 10 Aug, 2013 [facility] [address] [id number] [address] [place] [address], [place] [address] May, [facility] [address] [id number] [address] [place] [address], [place] [address] May, [facility] [address] [id number] [address] [place] [address], [place] [address] Apr, [facility] [address] [id number] [address] [place] [address], [place] [address] Apr, [facility] [address] [id number] [address] [place] [address], [place] [address] Apr, [facility] [address] [id number] [address] [place] [address], [place] [address] Apr, [facility] [address] [id number] [address] [place] [address], [place] [address] Apr, [facility] [address] [id number] [address] [place] [address], [place] [address] Apr, [facility] [address] [id number] [address] [place] [address], [place] [id number] 18 May, 2012 [facility] [address] [id number] [address] [place] [address], [place] [address] 18 May, 2012 [facility] [address] [id number] [address] [place] [address], [place] [id number] 15 May, 2012 [facility] [address] [id number] [address] [place] [address], [place] [address] 15 May, 2012 [facility] [address] [id number] [address] [place] [address], [place] [address] 13 May, 2012 [facility] [address] [id number] [address] [place] [address] [address] May, [facility] [address] [id number] [address] [place] [address], [place] [address] Apr, [facility] [address] [id number] [address] [place] [address], [place] [address] Apr, [facility] [address] [id number] [address] [place] [address], [place] [address] Apr, [facility] [address] [id number] [address] [place] [address], [place] [address] Apr, [facility] [address] [id number] [address] [place] [address], [place] [address] Apr, [facility] [address] [id number] [address] [place] [address], [place] [address] Apr, [facility] [address] [id number] [address] [place] [address], [place] [address] Apr, [facility] [address] [id number] [address] [place] [place] [address], [place] [id number] Apr, [facility] [address] [id number] [address] [place] [address], [place] [address] Apr, [facility] [address] [id number] [address] [place] [address], [place] [id number] Apr, [facility] [address] [id number] [address] [place] [id number] Mar, [facility] [address] [id number] [address] [place] [id number] Mar, [facility] [address] [id number] [address] [place] [address], [place] [id number] Mar, [facility] [address] [id number] [address] [place] [id number] Mar, [facility] [address] [id number] [address] [place] [id number] Mar, [facility] [address] [id number] [address] [place] [address], [place] [id number] Mar, [facility] [address] [id number] [address] [place] [address], [place] [id number] Mar, [facility] [address] [id number] [address] [place] [address], [place] [address] Mar, [facility] [address] [id number] [address] [place] [address], [place] [id number] Mar, [facility] [address] [id number] [address] [place] [address], [place] [id number] 25 Feb, 2012 [facility] [address] [id number] [address] [place] [address], [place] [id number] 16 Feb, 2012 [facility] [address] [id number] [address] [place] [address], [place] [address] 11 Feb, 2012 [facility] [address] [id number] [address] [place] [address], [place] [address] Jan, [facility] [address] [id number] [address] [place] [address], [place] [address] Jan, [facility] [address] [id number] [address] [place] [address], [place] [address] Jan, [facility] [address] [id number] [address] [place] [address], [place] [address] Jan, [facility] [address] [id number] [address] [place] [address], [place] [address] Jan, [facility] [address] [id number] [address] [place] [address], [place] [id number] 17 Jan, 2012 [facility] [address] [id number] [address] [place] [address], [place] [id number] 16 Jan, 2012 [facility] [address] [id number] [address] [place] [address], [place] [id number] 15 Jan, 2012 [facility] [address] [id number] [address] [place] [address], [place] [id number] Jan, [facility] [address] [id number] [address] [place] [address], [place] [address] Jan, [facility] [address] [id number] [address] [place] [address], [place] [id number] Dec, [facility] [address] [id number] [address] [place] [address], [place] [id number] Dec, [facility] [address] [id number] [address] [place] [address], [place] [id number] Dec, [facility] [address] [id number] [address] [place] [address], [place] [address] Dec, [facility] [address] [id number] [address] [place] [address], [place] [address] Nov, [facility] [address] [id number] [address] [place] [address], [place] [address] Nov, [facility] [address] [id number] [address] [place] [address], [place] [id number] Nov, [facility] [address] [id number] [address] [place] [address], [place] [address] October, [facility] [address] [id number] [address] [place] [address], [place] [id number] October, [facility] [address] [id number] [address] [place] [address], [place] [id number] October, [facility] [address] [id number] [address] [place] [address], [place] [id number] October, [facility] [address] [id number] [address] [place] [address], [place] [id number] October, [facility] [address] [id number] [address] [place] [address], [place] [address] October, [facility] [address] [id number] [address] [place] [address], [place] [id number] Aug, [facility] [address] [id number] [address] [place] [id number] 10 Mar, 2011 [facility] [address] [facility] [id number] [address] [place] [id number] [address], [address] [facility] [address] [facility] [id number] [address] [place] [id number] May, [facility] [address] [facility] [id number] [address] [place] [id number] May, [facility] [address] [facility] [id number] [address] [place] [id number] Apr, [facility] [address] [facility] [id number] [address] [place] [id number] Mar, [facility] [address] [facility] [id number] [address] [place] [id number] Mar, IMMUNIZATIONS No Known Immunizations SOCIAL HISTORY [...]
--- OUTSIDE RECORDS SUMMARY | 2019-06-19 05:55 | XMS REPORT ---
Author Author Sydnie MORTON Organization [facility] Address [address] [place] [address] Care Team Providers Care Entry Tech Name Role Phone JOHN MORTON Unavailable PROBLEMS Type Condition ICD9-CM Code ZYY90-DL Code Onset Dates Condition S tatus SNOMED Code Problem Hormone replacement therapy Z79.890 Ac tive 254772007 Problem Abnormal CT scan, head R93.0 Active 188644391 Problem Sensorineural hearing loss (SNHL) of both ears H90 .3 Active 897132692 Problem Bruising, spontaneous R23.3 Active 899554665 Problem Generalized anxiety disorder F41.1 A ctive 13915985 Problem Arthralgia of hip, unspecified laterality M25.559 Active 34173362 Problem Hematuria, unspecified type R31.9 Ac tive 01140209 Problem Night sweats R61 Active 4872578 0 Problem Hammer toe of right foot M20.41 Activ e 550581628 Problem Major depressive disorder, recurrent episode, moderate F33.1 Active 949780037 Problem Imbalance R26.89 Active 531114591 Problem Slow transit constipation K59.01 Acti ve 55474818 Problem Plantar wart of right foot B07.0 Act mitchell [id number] Problem Grief F43.20 Active 46017867 Problem Hyperlipidemia, unspecified hyperlipidemia type E7 8.5 Active 64055516 Problem Hypertension I10 Active 2849508 3 Problem Bladder spasm N32.89 Active 117649 006 Problem Fibromyalgia M79.7 Active 6607239 7 Problem Sciatica of left side M54.32 Active 11836625 Problem Acute left-sided low back pain with left-sided sciatica M54.42 Active 236654748 Problem Bipolar 1 disorder, mixed F31.60 Acti ve 32884144 Problem Ataxia R27.0 Active 00409762 Problem Other chronic pain G89.29 Active 8 8081221 Problem Gastritis without bleeding, unspecified chronicity, unspecified gastritis type K29.70 Active 307128955 Problem Hot flashes due to menopause N95.1 A ctive 062978759 Problem History of colon polyps Z86.010 Active 955944130 Problem Hearing loss, unspecified laterality H91.90 Active 33573883 Problem Allergic rhinitis J30.9 Active 61 667256 ALLERGIES No Information ENCOUNTERS Encounter Location Date Diagnosis [place] [address] [address] Apr, [place] [address] [address] Apr, [place] [address] [address] Mar, [place] [address] [address] Mar, [place] [address] [address] 16 Mar, 2018 [place] [address] [address] 03 Mar, 2018 Slow transit constipation K5 9.01 ; Encounter for immunization Z23 and Generalized anxiety disorder F41.1 [place] [address] [place] [id number] [place] [address] 27 Feb, 2018 Bipolar 1 disorder, mixed F3 1.60 [place] [address] [place] [id number] [place] [address] 26 Feb, 2018 Allergic rhinitis J30.9 [place] [address] [place] [id number] [place] [address] 24 Feb, 2018 Bipolar 1 disorder, mixed F3 1.60 [place] [address] [place] [id number] [place] [address] 20 Feb, 2018 Bipolar 1 disorder, mixed F3 1.60 and Generalized anxiety disorder F41.1 [place] [address] [place] [id number] [place] [address] 13 Feb, 2018 Bipolar 1 disorder, mixed F3 1.60 [facility] [address] [place] [id number] [place] [address] Feb, Allergic rhinitis J30.9 [facility] [address] [place] [id number] [place], [place] [address] Feb, [facility] [address] [place] [id number] [place] [address] Jan, Bipolar 1 disorder, mixed F3 1.60 [facility] [address] [place] [id number] [place], [place] [address] Jan, Low back pain M54.5 ; Hyperl ipidemia, unspecified hyperlipidemia type E78.5 and Bipolar 1 disorder, mixed F31.60 [place] [address] [place] [id number] [place] [address] Jan, Bipolar 1 disorder, mixed F3 1.60 [place] [address] [address] Jan, Bipolar 1 disorder, mixed F3 1.60 [place] [address] [place] [id number] [place] [address] Jan, Bipolar 1 disorder, mixed F3 1.60 [place] [address] [place] [id number] [place] [address] Jan, Bipolar 1 disorder, mixed F3 1.60 [place] [id number] [place], [place] [address] Dec, Bipolar 1 disorder, mixed F3 1.60 ; Generalized anxiety disorder F41.1 and [place] [facility] [place] therapy Z79.899 [place] [address] [place] [id number] [place] [address] Dec, Other [facility] (current) dr ug therapy Z79.899 [facility] [address] [place] [id number] [place] [address] Dec, Bipolar 1 disorder, mixed F3 1.60 [place] [address] [place] [id number] [place] [address] Dec, Bipolar 1 disorder, mixed F3 1.60 [facility] [address] [address] Nov, Bipolar 1 disorder, mixed F3 1.60 [facility] [address] [place] [id number] [place] [address] Nov, Bipolar 1 disorder, mixed F3 1.60 [facility] [address] [address] Nov, Bipolar 1 disorder, mixed F3 1.60 [place] [address] [address] Nov, Allergic rhinitis J30.9 [place] [address] [address] Nov, Allergic rhinitis J30.9 [facility] [address] [address] Nov, [facility] [address] [address] Nov, Bipolar 1 disorder, mixed F3 1.60 [facility] [address] [place] [id number] [place] [address] Nov, Fibromyalgia M79.7 and Aller gic rhinitis J30.9 [facility] [address] [place] [id number] [place] [address] October, Bipolar 1 disorder, mixed F3 1.60 [facility] [address] [place] [id number] [place] [address] October, Acute nasopharyngitis J00 [facility] [address] [place] [id number] [place] [address] October, Bitten or stung by nonvenomo us insect and other nonvenomous arthropods, initial encounter W57.XXXA and Insect bite (nonvenomous) of abdominal wall, initial encounter S30.861A [facility] [address] [place] [id number] [place] [address] October, Insect bite (nonvenomous) of abdominal wall, initial encounter S30.861A ; Bitten or stung by nonvenomous insect and other nonvenomous arthropods, initial encounter W57.XXXA ; Allergic rhinitis J30.9 and Low back pain M54.5 [facility] [address] [facility] [id number] [address] [place] [address] October, Bipolar 1 disorder, mixed F3 1.60 [facility] [address] [place] [id number] [place] [address] October, [facility] [address] [place] [id number] [place] [address] October, [facility] [address] [place] [id number] [place] [address] October, Bipolar 1 disorder, mixed F3 1.60 [facility] [address] [facility] [id number] [address] [place] [address] Sep, Bipolar 1 disorder, mixed F3 1.60 [facility] [address] [place] [id number] [place] [address] Sep, Other chronic pain G89.29 [facility] [address] [place] [id number] [place] [address] Sep, [facility] [address] [place] [id number] [place] [address] Sep, Bipolar 1 disorder, mixed F3 1.60 [facility] [address] [place] [id number] [place] [address] Sep, Allergic rhinitis J30.9 and Sciatica of left side M54.32 [facility] [address] [place] [id number] [place] [address] Sep, Bipolar 1 disorder, mixed F3 1.60 [facility] [address] [place] [id number] [place] [address] Sep, Bipolar 1 disorder, mixed F3 1.60 and Generalized anxiety disorder F41.1 [facility] [address] [facility] [id number] [address] [place] [address] Aug, [facility] [address] [facility] [id number] [address] [place] [address] Aug, Bipolar 1 disorder, mixed F3 1.60 [facility] [address] [facility] [id number] [address] [place] [address] Aug, Bipolar 1 disorder, mixed F3 1.60 [facility] [address] [facility] [id number] [address] [place] [address] Aug, [facility] [address] [facility] [id number] [address] [place] [address] Aug, Generalized anxiety disorder F41.1 [facility] [address] [facility] [id number] [address] [place] [address] Aug, Bipolar 1 disorder, mixed F3 1.60 [facility] [address] [facility] [id number] [address] [place] [address] Aug, Plantar wart of right foot B 07.0 [facility] [address] [facility] [id number] [address] [place] [address] Aug, Bipolar 1 disorder, mixed F3 1.60 [facility] [address] [facility] [id number] [address] [place] [address] Jul, Bipolar 1 disorder, mixed F3 1.60 [facility] [address] [facility] [id number] [address] [place] [address] Jul, [facility] [address] [facility] [id number] [address] [place] [address] Jul, Bipolar 1 disorder, mixed F3 1.60 [facility] [address] [facility] [id number] [address] [place] [address] Jul, Generalized anxiety disorder F41.1 [facility] [address] [facility] [id number] [address] [place] [address] 07 Jul, 2017 Bipolar 1 disorder, mixed F3 1.60 [facility] [address] [facility] [id number] [address] [place] [address] Jul, Acute left-sided low back pa in with left-sided sciatica M54.42 [place] [address] [facility] [id number] [address] [place] [address] Jul, Coccydynia M53.3 [place] [address] [facility] [id number] [address] [place] [address] Jun, Bipolar 1 disorder, mixed F3 1.60 [facility] N [facility] [id number] [address] [place] [address] Jun, Acute nasopharyngitis J00 [place] [address] [facility] [id number] [address] [place] [address] Jun, Bipolar 1 disorder, mixed F3 1.60 [place] [address] [facility] [id number] [address] [place] [address] Jun, Fibromyalgia M79.7 [place] [address] [facility] [id number] [address] [place] [address] Jun, Bipolar 1 disorder, mixed F3 1.60 [place] [address] [facility] [id number] [address] [place] [address] Jun, Fibromyalgia M79.7 and Bipol ar 1 disorder, mixed F31.60 [place] [address] [facility] [id number] [address] [place] [address] May, Bipolar 1 disorder, mixed F3 1.60 ; Generalized anxiety disorder F41.1 and [place] [facility] [place] drug therapy Z79.899 [place] [address] [facility] [id number] [address] [place] [address] May, Bipolar 1 disorder, mixed F3 1.60 [facility] [address] [address] 14 May, 2017 Cough R05 and Body aches R52 [facility] [address] [address] 10 May, 2017 Bladder spasm N32.89 and Acu te cystitis without hematuria N30.00 [place] [address] [address] 07 May, 2017 Bipolar 1 disorder, mixed F3 1.60 [place] [address] [address] 30 Apr, 2017 [place] [address] Apr, Major depressive disorder, r ecurrent episode, moderate F33.1 and Encounter for immunization Z23 [place] [address] [address] Apr, Bipolar 1 disorder, mixed F3 1.60 [place] [address] [address] 22 Apr, 2017 Bipolar 1 disorder, mixed F3 1.60 [place] [address] [address] 16 Apr, 2017 Bipolar 1 disorder, mixed F3 1.60 [place] [address] [address] 13 Apr, 2017 Yeast vaginitis B37.3 [place] [address] [address] 09 Apr, 2017 Bipolar 1 disorder, mixed F3 1.60 [facility] [address] [address] 07 Apr, 2017 Cellulitis L03.[address] for immunization Z23 [place] [address] [address] 02 Apr, 2017 Bipolar 1 disorder, mixed F3 1.60 [place] [address] [address] Mar, Bipolar 1 disorder, mixed F3 1.60 [place] [address] [place] [address] Mar, Bipolar 1 disorder, mixed F3 1.60 [place] [address] [address] Mar, Imbalance R26.89 [address] Encount er for immunization Z23 [place] [address] [address] Mar, Generalized anxiety disorder F41.1 [place] [address] [address] Mar, Bipolar 1 disorder, mixed F3 1.60 [place] [address] [address] Mar, Generalized anxiety disorder F41.1 [place] [address] [address] Mar, Bipolar 1 disorder, mixed F3 1.60 [place] [address] [address] Mar, Bipolar 1 disorder, mixed F3 1.60 [place] [address] [address] Feb, Bipolar 1 disorder, mixed F3 1.60 [place] [address] [address] Feb, Bipolar 1 disorder, mixed F3 1.60 and Generalized anxiety disorder F41.1 [place] [address] [address] Feb, Gastritis without bleeding, unspecified chronicity, unspecified gastritis type K29.70 ; Hammer toe of right foot M20.41 and Other viral warts B07.8 [place] [address] [place] [id number] [address] [place] [address] 20 Feb, 2017 Bipolar 1 disorder, mixed F3 1.60 [facility] [address] [place] [id number] [place] [address] 13 Feb, 2017 Bipolar 1 disorder, mixed F3 1.60 [facility] [address] [place] [id number] [place] [address] 05 Feb, 2017 Bipolar 1 disorder, mixed F3 1.60 [place] [address] [place] [id number] [place] [address] Jan, Encounter for screening mamm ogram for breast cancer Z12.31 ; Other viral warts B07.8 and Allergic rhinitis J30.9 [place] [address] [place] [id number] [place] [address] Jan, Bipolar 1 disorder, mixed F3 1.60 [place] [address] [place] [id number] [place] [address] Jan, Bipolar 1 disorder, mixed F3 1.60 [place] [address] [place] [id number] [place] [address] Jan, [place] [address] [place] [id number] [place] [address] Jan, Bipolar 1 disorder, mixed F3 1.60 [place] [address] [place] [id number] [place] [address] Jan, Bipolar 1 disorder, mixed F3 1.60 [place] [address] [facility] [id number] [address] [place] [address] Jan, Allergic rhinitis J30.9 ; He maturia R31.9 and Colon cancer screening Z12.11 [place] [address] [facility] [id number] [address] [place] [address] Dec, Bipolar 1 disorder, mixed F3 1.60 [place] [address] [place] [id number] [place] [address] Dec, Bipolar 1 disorder, mixed F3 1.60 ; Generalized anxiety disorder F41.1 and Other [facility] (current) drug therapy Z79.899 [facility] [address] [facility] [id number] [address] [place] [address] Dec, Bipolar 1 disorder, mixed F3 1.60 [facility] [address] [facility] [id number] [address] [place] [address] Dec, Bipolar 1 disorder, mixed F3 1.60 [facility] [address] [facility] [id number] [address] [place] [address] Dec, Bipolar 1 disorder, mixed F3 1.60 [place] [address] [place] [id number] [place] [address] Dec, Low back pain M54.5 and Recu rrent urinary tract infection N39.0 [place] [address] [place] [id number] [place] [address] Nov, Bipolar 1 disorder, mixed F3 1.60 [facility] [address] [facility] [id number] [address] [place] [address] Nov, Bipolar 1 disorder, mixed F3 1.60 [place] [address] [facility] [id number] [address] [place] [address] Nov, Bipolar 1 disorder, mixed F3 1.60 [facility] [address] [facility] [id number] [address] [place] [address] Nov, Bipolar 1 disorder, mixed F3 1.60 [facility] [address] [facility] [id number] [address] [place] [address] Nov, [place] [address] [facility] [id number] [address] [place] [address] Nov, Anesthesia of skin R20.0 ; F requent UTI N39.0 ; Tobacco abuse Z72.0 and Colon cancer screening Z12.11 [facility] [address] [facility] [id number] [address] [place] [address] Nov, Bipolar 1 disorder, mixed F3 1.60 [facility] [address] [facility] [id number] [address] [place] [address] October, Bipolar 1 disorder, mixed F3 1.60 [facility] [address] [facility] [id number] [address] [place], [place] [address] October, Bipolar 1 disorder, mixed F3 1.60 [facility] [address] [facility] [id number] [address] [place] [address] October, Bipolar 1 disorder, mixed F3 1.60 [facility] [address] [facility] [id number] [address] [place] [address] October, Bipolar 1 disorder, mixed F3 1.60 [facility] [address] [place] [id number] [place] [address] October, Bipolar 1 disorder, mixed F3 1.60 [facility] [address] [place] [id number] [place] [address] October, Cervicalgia M54.2 and Bipola r 1 disorder, mixed F31.60 [facility] [address] [facility] [id number] [address] [place] [address] October, Hypertension I10 ; Hyperlipi demia, unspecified hyperlipidemia type E78.5 and Family history of thyroid disease Z83.49 [facility] [address] [place] [id number] [place] [address] October, [facility] [address] [facility] [id number] [address] [place] [address] October, Hypertension I10 ; Hyperlipi demia, unspecified hyperlipidemia type E78.5 and Family history of thyroid problem Z83.49 [facility] [address] [facility] [id number] [address] [place] [address] October, Bipolar 1 disorder, mixed F3 1.60 [facility] [address] [facility] [id number] [address] [place] [address] Sep, Bipolar 1 disorder, mixed F3 1.60 [facility] [address] [place] [id number] [address] [place] [address] Sep, Bipolar 1 disorder, mixed F3 1.60 [facility] [address] [place] [id number] [address] [place] [address] Sep, Bipolar 1 disorder, mixed F3 1.60 [facility] [address] [place] [id number] [place] [address] Sep, History of colon polyps Z86. 010 and Hematochezia K92.1 [facility] [address] [place] [id number] [address] [place] [address] Sep, Major depressive disorder, r ecurrent episode, moderate F33.1 [place] [address] [place] [id number] [address] [place] [address] Sep, Bipolar 1 disorder, mixed F3 1.60 [place] [address] [address] Aug, Hot flashes due to menopause N95.1 [facility] [address] [place] [id number] [address] [place] [address] Aug, Bipolar 1 disorder, mixed F3 1.60 [place] [id number] [place] [address] Aug, [facility] [address] [place] [id number] [address] [place] [address] Aug, Bipolar 1 disorder, mixed F3 1.60 [place] [id number] [place] [address] Aug, Bipolar 1 disorder, mixed F3 1.60 [place] [address] [address] Aug, Hot flashes due to menopause N95.1 ; Cervicalgia M54.2 and Ataxia R27.0 [facility] [address] [place] [id number] [address] [place] [address] Jul, Bipolar 1 disorder, mixed F3 1.60 [facility] [address] [address] Jul, Bipolar 1 disorder, mixed F3 1.60 [place] [address] [place] [address] Jul, Bipolar 1 disorder, mixed F3 1.60 [place] [address] [address] Jul, Bipolar 1 disorder, mixed F3 1.60 [place] [address] [address] Jul, Bipolar 1 disorder, mixed F3 1.60 [place] [address] [address] 08 Jul, 2016 Cervicalgia M54.2 ; Tremor R 25.1 ; Hearing abnormally acute, unspecified laterality H93.239 ; Alopecia L65.9 ; Encounter for immunization Z23 and Family history of thyroid disease Z83.49 [place] [address] [address] Jul, Bipolar 1 disorder, mixed F3 1.60 [place] [address] [address] Jun, [place] [address] [address] Jun, Hearing disorder, unspecifie d laterality H93.299 [place] [address] [address] Jun, Bipolar 1 disorder, mixed F3 1.60 [place] [address] [address] Jun, Bipolar 1 disorder, mixed F3 1.60 [place] [address] [id number] Jun, Allergic rhinitis J30.9 [place] [address] [place] [id number] [place] [address] Jun, Bipolar 1 disorder, mixed F3 1.60 [facility] [address] [id number] [address] [place] [id number] Jun, Bipolar 1 disorder, mixed F3 1.60 [facility] [address] [facility] [id number] [address] [place] [id number] Jun, Allergic rhinitis J30.9 [facility] [address] [facility] [id number] [address] [place] [id number] Jun, Allergic rhinitis J30.9 [facility] [address] [id number] [address] [place] [id number] Jun, Bipolar 1 disorder, mixed F3 1.60 [facility] [address] [facility] [id number] [address] [place] [id number] May, Bipolar 1 disorder, mixed F3 1.60 [facility] [address] [facility] [id number] [address] [place] [id number] May, Bipolar 1 disorder, mixed F3 1.60 [facility] [address] [facility] [id number] [address] [place] [id number] May, [facility] [address] [facility] [id number] [address] [place] [address] May, Bipolar 1 disorder, mixed F3 1.60 [facility] [address] [facility] [id number] [address] [place] [address] May, Bipolar 1 disorder, mixed F3 1.60 [facility] [address] [facility] [id number] [address] [place] [address] May, [facility] [address] [facility] [id number] [address] [place] [address] May, [facility] [address] [facility] [id number] [address] [place] [address] May, [facility] [address] [facility] [id number] [address] [place] [address] May, Abdominal pain, unspecified location R10.9 [facility] [address] [address] May, [facility] [address] [address] Apr, Hematuria R31.9 ; Ataxia R27 .0 and Hearing loss, unspecified laterality H91.90 [facility] [address] [address] Apr, Bipolar 1 disorder, mixed F3 1.60 [facility] [address] [address] Apr, Acute effusion of both middl e ears H65.193 [place] [address] [address] Apr, Hematuria R31.9 and Pyelonep hritis N12 [facility] [address] [address] Apr, [place] [address] [address] Mar, Bipolar 1 disorder, mixed F3 1.60 [place] [address] [address] Mar, [facility] [address] [address] Mar, Bipolar 1 disorder, mixed F3 1.60 [place] [address] [address] Mar, Bipolar 1 disorder, mixed F3 1.60 [place] [address] [address] Mar, Encounter for immunization Z 23 and Gastritis without bleeding, unspecified chronicity, unspecified gastritis type K29.70 [place] [address] [address] Mar, Bipolar 1 disorder, mixed F3 1.60 and Grief F43.20 [place] [address] [place] [address] Mar, Gastritis without bleeding, unspecified chronicity, unspecified gastritis type K29.70 [place] [address] [address] [place] [id number] [address] [place] [id number] Mar, Bipolar 1 disorder, mixed F3 1.60 [place] [address] [place] [id number] [address] [place], [place] [address] Mar, Gastritis without bleeding, unspecified chronicity, unspecified gastritis type K29.70 [place] [address] [place] [id number] [address] [place] [address] Mar, [place] [address] [place] [id number] [place] [address] Feb, Bipolar 1 disorder, mixed F3 1.60 [place] [address] [place] [id number] [address] [place] [address] Feb, Bipolar 1 disorder, mixed F3 1.60 and Grief F43.20 [place] [address] [place] [id number] [address] [place] [address] Feb, Gastritis without bleeding, unspecified chronicity, unspecified gastritis type K29.70 [place] [address] [address] [place] [id number] [address] [place] [address] 14 Feb, 2016 Bipolar 1 disorder, mixed F3 1.60 [facility] [address] [place] [id number] [address] [place] [address] 09 Feb, 2016 Gastroesophageal reflux dise ase, esophagitis presence not specified K21.9 [facility] [address] [place] [id number] [address] [place] [address] Jan, Bipolar 1 disorder, mixed F3 1.60 [place] [address] [place] [id number] [address] [place] [address] Jan, Bipolar 1 disorder, mixed F3 1.60 and Unsteady gait R26.81 [facility] [address] [id number] [address] [place] [address] Jan, Bipolar 1 disorder, mixed F3 1.60 [facility] [address] [id number] [address] [place] [address] Jan, Bipolar 1 disorder, mixed F3 1.60 and Other meterman (current) drug therapy Z79.899 [facility] [address] [id number] [address] [place] [address] Jan, Bipolar 1 disorder, mixed F3 1.60 [place] [address] [facility] [id number] [address] [place] [address] Jan, Bipolar 1 disorder, mixed F3 1.60 [place] [address] [facility] [id number] [address] [place] [address] Jan, Bipolar 1 disorder, mixed F3 1.60 ; Grief F43.20 and Other [place] [facility]current[facility] drug therapy Z79.899 [facility] [address] [facility] [id number] [address] [place] [address] Jan, Bipolar 1 disorder, mixed F3 1.60 [facility] [address] [facility] [id number] [address] [place] [address] Dec, [facility] [address] [facility] [id number] [address] [place] [address] Dec, Bipolar 1 disorder, mixed F3 1.60 ; Vitamin D deficiency, unspecified E55.9 ; H/O allergic rhinitis Z87.09 ; Other chronic pain G89.29 and Dorsalgia, unspecified M54.9 [facility] [address] [facility] [id number] [address] [place] [address] Dec, [facility] [address] [facility] [id number] [address] [place] [address] Dec, Bipolar 1 disorder, mixed F3 1.60 [facility] [address] [facility] [id number] [address] [place] [address] Dec, Major depressive disorder, r ecurrent episode, moderate F33.1 [place] [id number] [place] [address] Dec, Major depressive disorder, r ecurrent episode, moderate F33.1 [facility] [id number] [place] [address] Nov, [place] [address] [address] Nov, Bipolar 1 disorder, mixed F3 1.60 [place] [address] [address] Nov, Major depressive disorder, r ecurrent episode, moderate F33.1 [place] [address] [address] Nov, Cervicalgia M54.2 ; Arthralg ia of hip, unspecified laterality M25.559 ; Allergic rhinitis J30.9 and Hormone replacement therapy Z79.890 [facility] [address] [place] [id number] [address] [place] [address] Nov, Other seasonal allergic rhin itis J30.2 [place] [address] [place] [id number] [address] [place] [address] October, Major depressive disorder, r ecurrent episode, moderate F33.1 [place] [id number] [place] [address] October, Major depressive disorder, r ecurrent episode, moderate F33.1 and Arthralgia of hip, unspecified laterality M25.559 [place] [address] [address] October, Grief F43.20 ; Hypertension I10 ; Hyperlipidemia, unspecified hyperlipidemia type E78.5 ; Other chronic pain G89.29 and Allergic rhinitis, unspecified allergic rhinitis type J30.9 [facility] [address] [place] [address] [place] [address] October, Major depressive disorder, r ecurrent episode, moderate F33.1 [facility] [address] [id number] [address] [place] [address] Sep, Major depressive disorder, r ecurrent episode, moderate F33.1 [facility] [address] [facility] [id number] [address] [place] [address] Sep, [facility] [address] [facility] [id number] [address] [place] [address] Sep, Major depressive disorder, r ecurrent episode, moderate F33.1 [place] [address] [facility] [id number] [address] [place] [address] Sep, Grief F43.20 [place] [address] [place] [id number] [address] [place] [address] Aug, Major depressive disorder, r ecurrent episode, moderate F33.1 [place] [address] [facility] [id number] [address] [place] [address] Aug, Bipolar 1 disorder, mixed F3 1.60 [place] [address] [facility] [id number] [address] [place] [address] Aug, Allergic rhinitis J30.9 ; Ce rvicalgia M54.2 and Low back pain M54.5 [facility] [address] [facility] [id number] [address] [place] [address] Aug, Major depressive disorder, r ecurrent episode, moderate F33.1 [facility] [address] [facility] [id number] [address] [place] [address] Aug, Sinusitis J32.9 and Tobacco 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 [facility] [address] [facility] [id number] [address] [place] [address] Aug, [facility] [address] [facility] [id number] [address] [place] [address] Aug, Depressive disorder, not els ewhere classified F32.9 ; Hormone replacement therapy Z79.[address] scan, head R93.0 [facility] [address] [id number] [address] [place] [address] Aug, Major depressive disorder, r ecurrent episode, moderate F33.1 [facility] [address] [id number] [address] [place] [address] Jul, Major depressive disorder, r ecurrent episode, moderate F33.1 [facility] [address] [id number] [address] [place] [address] Jul, Abdominal pain R10.9 and Hyp ertension I10 [facility] [address] [id number] [address] [place] [address] Jul, [facility] [address] [id number] [address] [place] [address] Jul, Major depressive disorder, r ecurrent episode, moderate F33.1 [facility] [address] [id number] [address] [place] [address] Jul, [facility] [address] [id number] [address] [place] [address] Jul, [facility] [address] [id number] [address] [place] [address] Jun, [facility] [address] [id number] [address] [place] [address] Jun, Depressive disorder, not els ewhere classified F32.9 [facility] [address] [id number] [address] [place] [address] Jun, [facility] [address] [id number] [address] [place] [address] Jun, [facility] [address] [id number] [address] [place] [address] Jun, Arthralgia of hip, unspecifi ed laterality M25.559 ; Bruising, spontaneous R23.3 and Night sweats R61 [facility] [address] [id number] [address] [place] [address] Jun, [facility] [address] [facility] [id number] [address] [place] [address] Jun, [facility] [address] [facility] [id number] [address] [place] [address] May, [facility] [address] [facility] [id number] [address] [place] [address] May, Myalgia M79.1 and Screening, lipid Z13.220 [facility] [address] [place] [id number] [address] [place] [address] Apr, Status post cervical spinal fusion Z98.1 ; Fibromyalgia M79.7 and Unsteady gait R26.81 [facility] [address] [place] [id number] [address] [place] [address] Nov, [facility] [address] [facility] [id number] [address] [place] [address] Nov, [facility] [address] [facility] [id number] [address] [place] [address] October, [facility] [address] [facility] [id number] [address] [place] [address] October, [facility] [address] [facility] [id number] [address] [place] [address] October, [facility] [address] [facility] [id number] [address] [place] [address] October, [facility] [address] [facility] [id number] [address] [place] [address] October, [facility] [address] [facility] [id number] [address] [place] [address] October, Dysuria 788.1 ; Nausea 787.0 2 and Urinary tract infection 599.0 [facility] [address] [id number] [address] [place] [address], [place] [address] 14 Sep, 2014 [facility] [address] [id number] [address] [place] [address], [place] [address] 13 Sep, 2014 [facility] [address] [id number] [address] [place] [address], [place] [address] 25 Aug, 2014 [facility] [address] [id number] [address] [place] [address], [place] [address] 25 Aug, 2014 [facility] [address] [id number] [address] [place] [address], [place] [address] 24 Aug, 2014 [facility] [address] [id number] [address] [place] [address], [place] [address] 24 Aug, 2014 [facility] [address] [id number] [address] [place] [address], [place] [address] 23 Aug, 2014 [facility] [address] [id number] [address] [place] [address], [place] [address] 19 Aug, 2014 [facility] [address] [id number] [address] [place] [address], [place] [address] 19 Aug, 2014 [facility] [address] [id number] [address] [place] [address], [place] [address] 19 Aug, 2014 [facility] [address] [id number] [address] [place] [address], [place] [address] 19 Aug, 2014 [facility] [address] [id number] [address] [place] [address], [place] [address] 18 Aug, 2014 [facility] [address] [id number] [address] [place] [address], [place] [address] 18 Aug, 2014 [facility] [place] [facility] [address] [id number] [address] [place] [address], [place] [address] 13 Aug, 2014 [facility] [address] [id number] [address] [place] [address], [place] [address] 13 Aug, 2014 [facility] [address] [id number] [address] [place] [address], [place] [address] Aug, [facility] [place] [facility] [address] [id number] [address] [place] [address], [place] [address] Aug, [facility] [place] [facility] [address] [id number] [address] [place] [address], [place] [address] Aug, [facility] [place] [facility] [address] [id number] [address] [place] [address], [place] [address] Aug, [facility] [place] [facility] [address] [id number] [address] [place] [address], [place] [address] Aug, 2014 [facility] [address] [id number] [address] [place] [address], [place] [address] Aug, [facility] [place] [facility] [address] [id number] [address] [place] [address], [place] [address] Aug, [facility] [address] [id number] [address] [place] [address], [place] [address] Aug, [facility] [place] [facility] [address] [id number] [address] [place] [address], [place] [address] Aug, [facility] [address] [id number] [address] [place] [address], [place] [address] Jul, [facility] [place] [facility] [address] [id number] [address] [place] [address], [place] [address] Jul, [facility] [place] [facility] [address] [id number] [address] [place] [address], [place] [address] Jul, [facility] [place] [facility] [address] [id number] [address] [place] [address], [place] [address] Jul, [facility] [place] [facility] [address] [id number] [address] [place] [address], [place] [address] Jul, [facility] [place] [facility] [address] [id number] [address] [place] [address], [place] [address] Jul, [facility] [place] [facility] [address] [id number] [address] [place] [address], [place] [address] Jul, [facility] [place] [facility] [address] [id number] [address] [place] [address], [place] [address] Jul, 2014 [facility] [address] [id number] [address] [place] [address], [place] [address] Jul, 2014 [facility] [address] [id number] [address] [place] [address], [place] [address] Jul, 2014 [facility] [address] [id number] [address] [place] [address], [place] [address] Jul, 2014 [facility] [address] [id number] [address] [place] [address], [place] [address] Jul, 2014 [facility] [address] [id number] [address] [place] [address], [place] [address] Jul, 2014 [facility] [address] [id number] [address] [place] [address], [place] [address] Jul, 2014 [facility] [address] [id number] [address] [place] [address], [place] [address] Jun, [facility] [address] [id number] [address] [place] [address], [place] [address] Jun, [facility] [address] [id number] [address] [place] [address], [place] [address] Jun, [facility] [address] [id number] [address] [place] [address], [place] [address] Jun, [facility] [address] [id number] [address] [place] [address], [place] [address] Jun, [facility] [address] [id number] [address] [place] [address], [place] [address] Jun, [facility] [address] [id number] [address] [place] [address], [place] [address] May, [facility] [place] [facility] [address] [id number] [address] [place] [address], [place] [address] May, [facility] [address] [id number] [address] [place] [address], [place] [address] May, [facility] [place] [facility] [address] [id number] [address] [place] [address], [place] [address] May, [facility] [place] [facility] [address] [id number] [address] [place] [address], [place] [address] May, [facility] [place] [facility] [address] [id number] [address] [place] [address], [place] [address] May, [facility] [place] [facility] [address] [id number] [address] [place] [address], [place] [address] Apr, [facility] [place] [facility] [address] [id number] [address] [place] [address], [place] [address] Apr, [facility] [place] [facility] [address] [id number] [address] [place] [address], [place] [address] Apr, [facility] [place] [facility] [address] [id number] [address] [place] [address], [place] [address] Apr, [facility] [place] [facility] [address] [id number] [address] [place] [address], [place] [address] Apr, [facility] [place] [facility] [address] [id number] [address] [place] [address], [place] [address] Apr, [facility] [place] [facility] [address] [id number] [address] [place] [address], [place] [address] Mar, [facility] [place] [facility] [address] [id number] [address] [place] [address] Mar, [facility] [place] [facility] [address] [id number] [address] [place] [address] Mar, [facility] [place] [facility] [address] [id number] [address] [place] [address], [place] [address] Mar, [facility] [place] [facility] [address] [id number] [address] [place] [address] Mar, [facility] [place] [facility] [address] [id number] [address] [place] [address] Mar, [facility] [place] [facility] [address] [id number] [address] [place] [address], [place] [address] Mar, [facility] [address] [id number] [address] [place] [address], [place] [address] Mar, [facility] [place] [facility] [address] [id number] [address] [place] [address], [place] [address] Mar, [facility] [address] [id number] [address] [place] [address], [place] [address] Mar, [facility] [address] [id number] [address] [place] [address], [place] [address] Mar, [facility] [address] [id number] [address] [place] [address], [place] [address] Mar, [facility] [address] [id number] [address] [place] [address], [place] [address] 30 Feb, 2014 [facility] [address] [id number] [address] [place] [address], [place] [address] 29 Feb, 2013 [facility] [address] [id number] [address] [place] [address], [place] [address] 29 Feb, 2013 [facility] [address] [id number] [address] [place] [address], [place] [address] 23 Feb, 2013 [facility] [address] [id number] [address] [place] [address], [place] [address] 23 Feb, 2013 [facility] [address] [id number] [address] [place] [address], [place] [address] 08 Feb, 2013 [facility] [address] [id number] [address] [place] [address], [place] [address] 08 Feb, 2013 [facility] [address] [id number] [address] [place] [address], [place] [address] Jan, [facility] [address] [id number] [address] [place] [address], [place] [address] Jan, [facility] [address] [id number] [address] [place] [address], [place] [address] 16 Jan, 2014 [facility] [address] [id number] [address] [place] [address] Dec, [facility] [address] [id number] [facility] [place] [address] Dec, [facility] [address] [id number] [address] [place] [address], [place] [address] Dec, [facility] [address] [id number] [address] [place] [address], [place] [address] Dec, [facility] [address] [id number] [address] [place] [address], [place] [address] Sep, [facility] [address] [id number] [address] [place] [address], [place] [address] Sep, [facility] [address] [id number] [address] [place] [address], [place] [address] Sep, [facility] [address] [id number] [address] [place] [address], [place] [address] Sep, [facility] [address] [id number] [address] [place] [address], [place] [address] Sep, [facility] [address] [id number] [address] [place] [address], [place] [address] Sep, [facility] [address] [id number] [address] [place] [address], [place] [address] Sep, [facility] [address] [id number] [address] [place] [address], [place] [address] Sep, [facility] [address] [id number] [address] [place] [address], [place] [address] Aug, [facility] [address] [id number] [address] [place] [address], [place] [address] Aug, [facility] [address] [id number] [address] [place] [address], [place] [address] May, [facility] [address] [address] [id number] [place] [address] May, [facility] [address] [id number] [address] [place] [address], [place] [address] Apr, [facility] [address] [id number] [address] [place] [address], [place] [address] Apr, [facility] [address] [id number] [address] [place] [address], [place] [address] Apr, [facility] [address] [id number] [address] [place] [address], [place] [address] Apr, [facility] [address] [id number] [address] [place] [address], [place] [address] Apr, [facility] [address] [id number] [address] [place] [address], [place] [address] Apr, [facility] [address] [id number] [address] [place] [address], [place] [address] May, [facility] [address] [id number] [address] [place] [address], [place] [address] 18 May, 2012 [facility] [address] [id number] [address] [place] [address], [place] [address] 15 May, 2012 [facility] [address] [id number] [address] [place] [address], [place] [address] 15 May, 2012 [facility] [address] [id number] [address] [place] [address], [place] [address] 13 May, 2012 [facility] [address] [id number] [address] [place] [address], [place] [address] 13 May, 2012 [facility] [address] [id number] [address] [place] [address], [place] [address] Apr, [facility] [address] [id number] [address] [place] [address], [place] [address] 13 Apr, 2012 [facility] [address] [id number] [address] [place] [address], [place] [address] 08 Apr, 2012 [facility] [address] [id number] [address] [place] [address], [place] [address] 08 Apr, 2012 [facility] [address] [id number] [address] [place] [address], [place] [address] Apr, [facility] [address] [id number] [address] [place] [address], [place] [address] Apr, [facility] [address] [id number] [address] [place] [address], [place] [address] Apr, [facility] [address] [id number] [address] [place] [address], [place] [address] Apr, [facility] [address] [id number] [address] [place] [address], [place] [address] Apr, [facility] [address] [id number] [address] [place] [address], [place] [address] Apr, [facility] [address] [id number] [address] [place] [address], [place] [address] Mar, [facility] [address] [id number] [address] [place] [address], [place] [address] Mar, [facility] [address] [id number] [address] [place] [address], [place] [address] Mar, [facility] [address] [id number] [address] [place] [address] Mar, [facility] [address] [id number] [address] [place] [address], [place] [address] Mar, [facility] [address] [id number] [address] [place] [address] Mar, [facility] [address] [id number] [address] [place] [address], [place] [address] Mar, [facility] [address] [id number] [address] [place] [address], [place] [address] Mar, [facility] [address] [id number] [address] [place] [address], [place] [address] Mar, [facility] [address] [id number] [address] [place] [address], [place] [address] 25 Feb, 2012 [facility] [address] [id number] [address] [place] [address], [place] [address] 16 Feb, 2012 [facility] [address] [id number] [address] [place] [address], [place] [address] Feb, [facility] [address] [id number] [address] [place] [address], [place] [address] Jan, [facility] [address] [id number] [address] [place] [address], [place] [address] Jan, [facility] [address] [id number] [address] [place] [address], [place] [address] Jan, [facility] [address] [id number] [address] [place] [address], [place] [address] Jan, [facility] [address] [id number] [address] [place] [address], [place] [address] Jan, [facility] [address] [id number] [address] [place] [address], [place] [address] Jan, [facility] [address] [id number] [address] [place] [address], [place] [address] Jan, [facility] [address] [id number] [address] [place] [address], [place] [address] Jan, [facility] [address] [id number] [address] [place] [address], [place] [address] Jan, [facility] [address] [id number] [address] [place] [address], [place] [address] Jan, [facility] [address] [id number] [address] [place] [address], [place] [address] Dec, [facility] [address] [id number] [address] [place] [address], [place] [address] Dec, [facility] [address] [id number] [address] [place] [address], [place] [address] Dec, [facility] [address] [id number] [address] [place] [address], [place] [address] Dec, [facility] [address] [id number] [address] [place] [address], [place] [address] Nov, [facility] [address] [id number] [address] [place] [address], [place] [address] Nov, [facility] [address] [id number] [address] [place] [address], [place] [address] Nov, [facility] [address] [id number] [address] [place] [address], [place] [address] October, [facility] [address] [id number] [address] [place] [address], [place] [address] October, [facility] [address] [id number] [address] [place] [address], [place] [address] October, [facility] [address] [id number] [address] [place] [address], [place] [address] October, [facility] [address] [id number] [address] [place] [address], [place] [address] October, [facility] [address] [id number] [address] [place] [address], [place] [address] October, [facility] [address] [id number] [address] [place] [address], [place] [address] Aug, [facility] [address] [id number] [address] [place] [address], [place] [address] Mar, [facility] [address] [id number] [address] [place] [address], [place] [address] 16 Nov, 2010 [facility] [address] [id number] [address] [place] [address], [place] [address] May, [facility] [address] [id number] [address] [place] [address], [place] [address] May, [facility] [address] [id number] [address] [address] Apr, [facility] [address] [facility] [id number] [address] [place] [address] Mar, [facility] [address] [facility] [id number] [address] [address] Mar, IMMUNIZATIONS No Known Immunizations SOCIAL HISTORY Never Assessed REASON FOR VISIT BH f/u PLAN OF CARE Activity Details Follow Up Next available Reason: F/U VITAL SIGNS MEDICATIONS Unknown Medications RESULTS No Results PROCEDURES Procedure Date Ordered Result Body Site [facility] VISIT MENTAL HEALTH ESTAB PT Mar 14, 2018 Psychotherapy, patient &/family, 45 minutes, established pat ient Mar 14, 2018 INSTRUCTIONS MEDICATIONS ADMINISTERED No Known Medications [...]
--- OUTSIDE RECORDS SUMMARY | 2019-06-19 05:55 | XMS REPORT ---
Author Author Sydnie MORTON Organization [facility] Address [address] [place] [address] Care Team Providers Care Oracle Pl Sql Developer Name Role Phone JOHN MORTON Unavailable PROBLEMS Type Condition ICD9-CM Code PHL83-ZI Code Onset Dates Condition S tatus SNOMED Code Problem Hormone replacement therapy Z79.890 Ac tive 337264272 Problem Abnormal CT scan, head R93.0 Active 034052243 Problem Hot flashes due to menopause N95.1 A ctive 469644659 Problem Sensorineural hearing loss (SNHL) of both ears H90 .3 Active 434114563 Problem History of colon polyps Z86.010 Active 284097081 Problem Bruising, spontaneous R23.3 Active 380470396 Problem Generalized anxiety disorder F41.1 A ctive 58880224 Problem Hammer toe of right foot M20.41 Activ e 179262000 Problem Hematuria, unspecified type R31.9 Ac tive 77852997 Problem Plantar wart of right foot B07.0 Act mitchell [id number] Problem Acute left-sided low back pain with left-sided sciatica M54.42 Active 579374948 Problem Hypertension I10 Active 9021813 3 Problem Arthralgia of hip, unspecified laterality M25.559 Active 58127686 Problem Night sweats R61 Active 1528691 0 Problem Major depressive disorder, recurrent episode, moderate F33.1 Active 732198726 Problem Imbalance R26.89 Active 646543777 Problem Bladder spasm N32.89 Active 527649 006 Problem Fibromyalgia M79.7 Active 5661900 7 Problem Other chronic pain G89.29 Active 8 1316495 Problem Gastritis without bleeding, unspecified chronicity, unspecified gastritis type K29.70 Active 733909290 Problem Hyperlipidemia, unspecified hyperlipidemia type E7 8.5 Active 12572139 Problem Grief F43.20 Active 02584010 Problem Ataxia R27.0 Active 64790086 Problem Allergic rhinitis J30.9 Active 61 658909 Problem Bipolar 1 disorder, mixed F31.60 Acti ve 20398814 Problem Hearing loss, unspecified laterality H91.90 Active 84847440 ALLERGIES No Information ENCOUNTERS Encounter Location Date Diagnosis [facility] [address] [facility] [id number] [address] [place] [address] Dec, [facility] [address] [place] [id number] [place] [address] Sep, [facility] [address] [place] [id number] [place] [address] Sep, [facility] [address] [place] [id number] [place] [address] Sep, [facility] [address] [place] [id number] [place] [address] Sep, Bipolar 1 disorder, mixed F3 1.60 and Generalized anxiety disorder F41.1 [facility] [address] [place] [id number] [address] [place] [address] Aug, [facility] [address] [place] [id number] [place] [address] Aug, Bipolar 1 disorder, mixed F3 1.60 [facility] [address] [place] [id number] [place] [address] Aug, Bipolar 1 disorder, mixed F3 1.60 [facility] [address] [place] [id number] [place] [address] Aug, [facility] [address] [place] [id number] [place] [address] Aug, Generalized anxiety disorder F41.1 [facility] [address] [place] [id number] [place] [address] Aug, Bipolar 1 disorder, mixed F3 1.60 [facility] [address] [place] [id number] [place] [address] Aug, Plantar wart of right foot B 07.0 [place] [address] [facility] [id number] [address] [place] [address] Aug, Bipolar 1 disorder, mixed F3 1.60 [facility] [address] [facility] [id number] [address] [place] [address] Jul, Bipolar 1 disorder, mixed F3 1.60 [facility] [address] [facility] [id number] [address] [place] [address] Jul, [facility] [address] [facility] [id number] [address] [place] [address] Jul, Bipolar 1 disorder, mixed F3 1.60 [facility] [address] [facility] [id number] [address] [place] [address] Jul, Generalized anxiety disorder F41.1 [facility] [address] [place] [id number] [place] [address] 07 Jul, 2017 Bipolar 1 disorder, mixed F3 1.60 [facility] [address] [place] [id number] [place] [address] 07 Jul, 2017 Acute left-sided low back pa in with left-sided sciatica M54.42 [facility] [address] [facility] [id number] [address] [place] [address] 05 Jul, 2017 Coccydynia M53.3 [facility] [address] [facility] [id number] [address] [place] [address] Jun, Bipolar 1 disorder, mixed F3 1.60 [facility] [address] [facility] [id number] [address] [place] [address] Jun, Acute nasopharyngitis J00 [facility] [address] [facility] [id number] [address] [place] [address] Jun, Bipolar 1 disorder, mixed F3 1.60 [facility] [address] [facility] [id number] [address] [place] [address] Jun, Fibromyalgia M79.7 [facility] [address] [address] Jun, Bipolar 1 disorder, mixed F3 1.60 [place] [address] [address] Jun, Fibromyalgia M79.7 and Bipol ar 1 disorder, mixed F31.60 [place] [address] [address] May, Bipolar 1 disorder, mixed F3 1.60 ; Generalized anxiety disorder F41.1 and 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 [place] [address] [address] May, Bipolar 1 disorder, mixed F3 1.60 [facility] [address] [address] May, Cough R05 and Body aches R52 [facility] [address] [address] May, Bladder spasm N32.89 and Acu te cystitis without hematuria N30.00 [place] [address] [address] May, Bipolar 1 disorder, mixed F3 1.60 [place] [address] [address] Apr, [place] [address] [address] Apr, Major depressive disorder, r ecurrent episode, moderate F33.1 and Encounter for immunization Z23 [place] [address] [address] Apr, Bipolar 1 disorder, mixed F3 1.60 [place] [address] [address] Apr, Bipolar 1 disorder, mixed F3 1.60 [place] [address] [address] Apr, Bipolar 1 disorder, mixed F3 1.60 [facility] [address] [place] [id number] [place] [address] Apr, Yeast vaginitis B37.3 [facility] [address] [place] [id number] [place] [address] 09 Apr, 2017 Bipolar 1 disorder, mixed F3 1.60 [facility] [address] [place] [id number] [place] [address] Apr, Cellulitis L03.[address] for immunization Z23 [facility] [address] Apr, Bipolar 1 disorder, mixed F3 1.60 [facility] [address] [address] Mar, Bipolar 1 disorder, mixed F3 1.60 [facility] [address] [address] Mar, Bipolar 1 disorder, mixed F3 1.60 [facility] [address] [address] Mar, Imbalance R26.89 and Encount er for immunization Z23 [facility] [address] [place] [id number] [place] [address] Mar, Generalized anxiety disorder F41.1 [facility] [address] [place] [id number] [place] [address] Mar, Bipolar 1 disorder, mixed F3 1.60 [facility] [address] [place] [id number] [place] [address] Mar, Generalized anxiety disorder F41.1 [facility] [address] [place] [id number] [place] [address] Mar, Bipolar 1 disorder, mixed F3 1.60 [facility] [address] [place] [id number] [place] [address] Mar, Bipolar 1 disorder, mixed F3 1.60 [place] [address] [place] [id number] [place] [address] Feb, Bipolar 1 disorder, mixed F3 1.60 [place] [address] [place] [id number] [place] [address] Feb, Bipolar 1 disorder, mixed F3 1.60 and Generalized anxiety disorder F41.1 [place] [address] [address] Feb, Gastritis without bleeding, unspecified chronicity, unspecified gastritis type K29.70 ; Hammer toe of right foot M20.41 and Other viral warts B07.8 [place] [address] [address] 20 Feb, 2017 Bipolar 1 disorder, mixed F3 1.60 [place] [address] [address] Feb, Bipolar 1 disorder, mixed F3 1.60 [place] [address] [place] [address] 05 Feb, 2017 Bipolar 1 disorder, mixed F3 1.60 [place] [address] [place] [id number] [place] [address] Jan, Encounter for screening mamm ogram for breast cancer Z12.31 ; Other viral warts B07.8 and Allergic rhinitis J30.9 [place] [address] [place] [id number] [place] [address] Jan, Bipolar 1 disorder, mixed F3 1.60 [place] [address] [place] [id number] [place] [address] Jan, Bipolar 1 disorder, mixed F3 1.60 [place] [address] [place] [id number] [place] [address] Jan, [place] [address] [place] [id number] [place] [address] Jan, Bipolar 1 disorder, mixed F3 1.60 [place] [address] [place] [id number] [place] [address] Jan, Bipolar 1 disorder, mixed F3 1.60 [place] [address] [place] [id number] [place] [address] Jan, Allergic rhinitis J30.9 ; He maturia R31.9 and Colon cancer screening Z12.11 [place] [address] [place] [id number] [place] [address] Dec, Bipolar 1 disorder, mixed F3 1.60 [place] [address] [address] Dec, Bipolar 1 disorder, mixed F3 1.60 ; Generalized anxiety disorder F41.1 and Other alf (current) drug therapy Z79.899 [place] [address] [address] Dec, Bipolar 1 disorder, mixed F3 1.60 [place] [address] [place] [id number] [place] [address] Dec, Bipolar 1 disorder, mixed F3 1.60 [place] [address] [address] Dec, Bipolar 1 disorder, mixed F3 1.60 [place] [address] [place] [id number] [place] [address] Dec, Low back pain M54.5 and Recu rrent urinary tract infection N39.0 [place] [address] [place] [id number] [place] [address] Nov, Bipolar 1 disorder, mixed F3 1.60 [place] [address] [place] [id number] [place] [address] Nov, Bipolar 1 disorder, mixed F3 1.60 [place] [address] [address] Nov, Bipolar 1 disorder, mixed F3 1.60 [facility] [address] [place] [id number] [address] [place] [address] Nov, Bipolar 1 disorder, mixed F3 1.60 [facility] [address] [place] [id number] [place] [address] Nov, [place] [address] [address] Nov, Anesthesia of skin R20.0 ; F requent UTI N39.0 ; Tobacco abuse Z72.0 and Colon cancer screening Z12.11 [place] [address] [address] Nov, Bipolar 1 disorder, mixed F3 1.60 [place] [address] [address] October, Bipolar 1 disorder, mixed F3 1.60 [place] [address] [address] October, Bipolar 1 disorder, mixed F3 1.60 [place] [address] [address] October, Bipolar 1 disorder, mixed F3 1.60 [place] [address] [address] October, Bipolar 1 disorder, mixed F3 1.60 [place] [address] [address] October, Bipolar 1 disorder, mixed F3 1.60 [place] [address] [address] October, Cervicalgia M54.2 and Bipola r 1 disorder, mixed F31.60 [place] [address] [place] [id number] [place] [address] October, Hypertension I10 ; Hyperlipi demia, unspecified hyperlipidemia type E78.5 and Family history of thyroid disease Z83.49 [place] [address] [place] [id number] [place] [address] October, [place] [address] [address] October, Hypertension I10 ; Hyperlipi demia, unspecified hyperlipidemia type E78.5 and Family history of thyroid problem Z83.49 [place] [address] [address] October, Bipolar 1 disorder, mixed F3 1.60 [place] [address] [address] Sep, Bipolar 1 disorder, mixed F3 1.60 [place] [address] [address] Sep, Bipolar 1 disorder, mixed F3 1.60 [place] [address] [address] Sep, Bipolar 1 disorder, mixed F3 1.60 [place] [address] [address] Sep, History of colon polyps Z86. 010 and Hematochezia K92.1 [place] [address] [address] Sep, Major depressive disorder, r ecurrent episode, moderate F33.1 [place] [address] [place] [id number] [place] [address] Sep, Bipolar 1 disorder, mixed F3 1.60 [place] [address] [address] Aug, Hot flashes due to menopause N95.1 [place] [address] [place] [id number] [place] [address] Aug, Bipolar 1 disorder, mixed F3 1.60 [place] [address] [address] Aug, [place] [address] [address] Aug, Bipolar 1 disorder, mixed F3 1.60 [place] [address] [place] [address] Aug, Bipolar 1 disorder, mixed F3 1.60 [place] [address] [place] [address] Aug, Hot flashes due to menopause N95.1 ; Cervicalgia M54.2 and Ataxia R27.0 [place] [address] [place] [address] Jul, Bipolar 1 disorder, mixed F3 1.60 [place] [address] [address] Jul, Bipolar 1 disorder, mixed F3 1.60 [place] [address] [address] Jul, Bipolar 1 disorder, mixed F3 1.60 [place] [address] [address] Jul, Bipolar 1 disorder, mixed F3 1.60 [place] [address] [address] Jul, Bipolar 1 disorder, mixed F3 1.60 [place] [address] [address] Jul, Cervicalgia M54.2 ; Tremor R 25.1 ; Hearing abnormally acute, unspecified laterality H93.239 ; Alopecia L65.9 ; Encounter for immunization Z23 and Family history of thyroid disease Z83.49 [place] [address] [address] Jul, Bipolar 1 disorder, mixed F3 1.60 [place] [address] [address] Jun, [facility] [address] [id number] [address] [place] [address] Jun, Hearing disorder, unspecifie d laterality H93.299 [facility] [address] [id number] [address] [place] [address] Jun, Bipolar 1 disorder, mixed F3 1.60 [facility] [address] [id number] [address] [place] [address] Jun, Bipolar 1 disorder, mixed F3 1.60 [facility] [address] [id number] [address] [place] [address] Jun, Allergic rhinitis J30.9 [facility] [address] [id number] [address] [place] [address] Jun, Bipolar 1 disorder, mixed F3 1.60 [facility] [address] [facility] [id number] [address] [place] [address] Jun, Bipolar 1 disorder, mixed F3 1.60 [facility] [address] [id number] [address] [place] [address] Jun, Allergic rhinitis J30.9 [facility] [address] [facility] [id number] [address] [place] [address] Jun, Allergic rhinitis J30.9 [facility] [address] [id number] [address] [place] [address] Jun, Bipolar 1 disorder, mixed F3 1.60 [facility] [address] [id number] [address] [place] [address] May, Bipolar 1 disorder, mixed F3 1.60 [facility] [address] [facility] [id number] [address] [place] [address] May, Bipolar 1 disorder, mixed F3 1.60 [facility] [address] [facility] [id number] [address] [place] [address] May, [facility] [address] [place] [id number] [address] [place] [address] May, Bipolar 1 disorder, mixed F3 1.60 [facility] [address] [address] May, Bipolar 1 disorder, mixed F3 1.60 [facility] [address] [place] [id number] [place] [address] May, [facility] [address] [place] [id number] [place] [address] May, [facility] [address] [address] May, [facility] [address] [address] May, Abdominal pain, unspecified location R10.9 [facility] [address] [address] May, [facility] [address] [address] Apr, Hematuria R31.9 ; Ataxia R27 .0 and Hearing loss, unspecified laterality H91.90 [facility] [address] [address] Apr, Bipolar 1 disorder, mixed F3 1.60 [facility] [address] [address] Apr, Acute effusion of both middl e ears H65.193 [facility] [address] [place] [id number] [address] [place] [address] Apr, Hematuria R31.9 and Pyelonep hritis N12 [facility] [address] [place] [id number] [place] [address] Apr, [facility] [address] [place] [id number] [place] [address] Mar, Bipolar 1 disorder, mixed F3 1.60 [place] [address] [facility] [id number] [address] [place] [address] Mar, [place] [address] [place] [id number] [place] [address] Mar, Bipolar 1 disorder, mixed F3 1.60 [place] [address] [place] [id number] [place] [address] Mar, Bipolar 1 disorder, mixed F3 1.60 [place] [address] [place] [id number] [place] [address] Mar, Encounter for immunization Z 23 and Gastritis without bleeding, unspecified chronicity, unspecified gastritis type K29.70 [place] [address] [place] [id number] [place] [address] Mar, Bipolar 1 disorder, mixed F3 1.60 and Grief F43.20 [place] [address] [place] [id number] [place] [address] Mar, Gastritis without bleeding, unspecified chronicity, unspecified gastritis type K29.70 [place] [address] [place] [id number] [place] [address] Mar, Bipolar 1 disorder, mixed F3 1.60 [place] [address] [place] [id number] [place] [address] Mar, Gastritis without bleeding, unspecified chronicity, unspecified gastritis type K29.70 [place] [address] [place] [id number] [place] [address] Mar, [place] [address] [place] [id number] [place] [address] Feb, Bipolar 1 disorder, mixed F3 1.60 [place] [address] [place] [id number] [place], [place] [address] Feb, Bipolar 1 disorder, mixed F3 1.60 and Grief F43.20 [place] [address] [place] [id number] [place] [address] Feb, Gastritis without bleeding, unspecified chronicity, unspecified gastritis type K29.70 [facility] [address] [facility] [id number] [address] [place] [address] 14 Feb, 2016 Bipolar 1 disorder, mixed F3 1.60 [facility] [address] [facility] [id number] [address] [place] [address] Feb, Gastroesophageal reflux dise ase, esophagitis presence not specified K21.9 [facility] [address] [facility] [id number] [address] [place] [address] Jan, Bipolar 1 disorder, mixed F3 1.60 [facility] [address] [place] [id number] [place] [address] Jan, Bipolar 1 disorder, mixed F3 1.60 and Unsteady gait R26.81 [place] [address] [place] [id number] [place] [address] Jan, Bipolar 1 disorder, mixed F3 1.60 [facility] [address] [place] [id number] [place] [address] Jan, Bipolar 1 disorder, mixed F3 1.60 and 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 [facility] [address] [place] [id number] [place] [address] Jan, Bipolar 1 disorder, mixed F3 1.60 [facility] [address] [place] [id number] [place] [address] Jan, Bipolar 1 disorder, mixed F3 1.60 [facility] [address] [facility] [id number] [address] [place] [address] Jan, Bipolar 1 disorder, mixed F3 1.60 ; Grief F43.20 and Other alf (current) drug therapy Z79.899 [facility] [address] [facility] [id number] [address] [place] [address] Jan, Bipolar 1 disorder, mixed F3 1.60 [facility] [address] [address] Dec, [facility] [address] [address] Dec, Bipolar 1 disorder, mixed F3 1.60 ; Vitamin D deficiency, unspecified E55.9 ; H/O allergic rhinitis Z87.09 ; Other chronic pain G89.29 and Dorsalgia, unspecified M54.9 [place] [address] [phone] Dec, [place] [address] [address] Dec, Bipolar 1 disorder, mixed F3 1.60 [place] [address] [address] Dec, Major depressive disorder, r ecurrent episode, moderate F33.1 [place] [address] [address] Dec, Major depressive disorder, r ecurrent episode, moderate F33.1 [place] [address] [address] Nov, [place] [address] [address] Nov, Bipolar 1 disorder, mixed F3 1.60 [place] [address] [address] Nov, Major depressive disorder, r ecurrent episode, moderate F33.1 [place] [address] [address] Nov, Cervicalgia M54.2 ; Arthralg ia of hip, unspecified laterality M25.559 ; Allergic rhinitis J30.9 and Hormone replacement therapy Z79.890 [facility] [address] [place] [id number] [address] [place] [id number] Nov, Other seasonal allergic rhin itis J30.2 [place] [address] [facility] [id number] [address] [place] [phone] October, Major depressive disorder, r ecurrent episode, moderate F33.1 [place] [address] [address] [facility] [id number] [address] [place] [phone] October, Major depressive disorder, r ecurrent episode, moderate F33.1 and Arthralgia of hip, unspecified laterality M25.559 [place] [address] [address] [facility] [id number] [address] [place] [phone] October, Grief F43.20 ; Hypertension I10 ; Hyperlipidemia, unspecified hyperlipidemia type E78.5 ; Other chronic pain G89.29 and Allergic rhinitis, unspecified allergic rhinitis type J30.9 [place] [address] [address] [place] [id number] [address] [place] [address] October, Major depressive disorder, r ecurrent episode, moderate F33.1 [place] [address] [address] [facility] [id number] [address] [place] [id number] Sep, Major depressive disorder, r ecurrent episode, moderate F33.1 [place] [address] [address] [facility] [id number] [address] [place] [phone] Sep, [place] [address] [address] [place] [id number] [address] [place] [address] Sep, Major depressive disorder, r ecurrent episode, moderate F33.1 [place] [address] [address] [place] [id number] [address] [place] [phone] Sep, Grief F43.20 [place] [address] [address] [facility] [id number] [address] [place], [place] [id number] Aug, Major depressive disorder, r ecurrent episode, moderate F33.1 [place] [address] [facility] [id number] [address] [place] [address] Aug, Bipolar 1 disorder, mixed F3 1.60 [place] [address] [address] [place] [id number] [address] [place] [address] Aug, Allergic rhinitis J30.9 ; Ce rvicalgia M54.2 and Low back pain M54.5 [facility] [address] [facility] [id number] [address] [place] [address] Aug, Major depressive disorder, r ecurrent episode, moderate F33.1 [facility] [address] [facility] [id number] [address] [place] [address] Aug, Sinusitis J32.9 and Tobacco 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 [facility] [address] [facility] [id number] [address] [place] [address] Aug, [facility] [address] [address] Aug, Depressive disorder, not els ewhere classified F32.9 ; Hormone replacement therapy Z79.[address] scan, head R93.0 [place] [address] [address] [place] [id number] [address] [place] [id number] Aug, Major depressive disorder, r ecurrent episode, moderate F33.1 [facility] [address] [place] [id number] [address] [place] [id number] Jul, Major depressive disorder, r ecurrent episode, moderate F33.1 [facility] [address] [place] [id number] [address] [place] [address] Jul, Abdominal pain R10.9 and Hyp ertension I10 [facility] [address] [facility] [id number] [address] [place] [address] Jul, [facility] [address] [facility] [id number] [address] [place] [id number] Jul, Major depressive disorder, r ecurrent episode, moderate F33.1 [facility] [address] [facility] [id number] [address] [place] [id number] Jul, [facility] [address] [place] [id number] [address] [place] [address] Jul, [place] [address] [id number] [address] [place] [address] Jun, [facility] [address] [id number] [address] [place] [address] Jun, Depressive disorder, not els ewhere classified F32.9 [facility] [address] [id number] [address] [place] [address] Jun, [facility] [address] [id number] [address] [place] [id number] Jun, [facility] [address] [id number] [address] [place] [address] Jun, Arthralgia of hip, unspecifi ed laterality M25.559 ; Bruising, spontaneous R23.3 and Night sweats R61 [facility] [address] [facility] [id number] [address] [place] [address] Jun, [facility] [address] [facility] [id number] [address] [place] [address] Jun, [facility] [address] [id number] [address] [place] [address] May, [facility] [address] [place] [id number] [address] [place] [address] May, Myalgia M79.1 and Screening, lipid Z13.220 [facility] [address] [facility] [id number] [address] [place] [address] Apr, Status post cervical spinal fusion Z98.1 ; Fibromyalgia M79.7 and Unsteady gait R26.81 [facility] [address] [id number] [address] [place] [address] Nov, [facility] [address] [facility] [id number] [address] [place] [address] Nov, [facility] [address] [facility] [id number] [address] [place] [address] October, [facility] [address] [id number] [address] [place] [address] October, [facility] [address] [id number] [address] [place] [address] October, [facility] [address] [id number] [address] [place] [address] October, [facility] [address] [id number] [address] [place] [address] October, [facility] [address] [id number] [address] [place] [address] October, Dysuria 788.1 ; Nausea 787.0 2 and Urinary tract infection 599.0 [facility] [address] [id number] [address] [place] [address] Sep, [facility] [address] [id number] [address] [place] [address] Sep, [facility] [address] [id number] [address] [place] [address] Aug, [facility] [address] [id number] [address] [place] [address] Aug, [facility] [address] [id number] [address] [place] [address] Aug, [facility] [address] [id number] [address] [place] [address] Aug, [facility] [address] [id number] [address] [place] [address] Aug, [facility] [address] [id number] [address] [place] [address] Aug, [facility] [address] [id number] [address] [place] [address] Aug, [facility] [address] [id number] [address] [place] [address] Aug, [facility] [address] [id number] [facility] [place] [address] 19 Aug, 2014 [facility] [address] [id number] [address] [place] [address], [place] [address] 18 Aug, 2014 [facility] [address] [id number] [address] [place] [address], [place] [address] 18 Aug, 2014 [facility] [address] [id number] [address] [place] [address], [place] [address] 13 Aug, 2014 [facility] [address] [id number] [address] [place] [address], [place] [address] 13 Aug, 2014 [facility] [address] [id number] [address] [place] [address], [place] [address] 11 Aug, 2014 [facility] [address] [id number] [address] [place] [address], [place] [address] 11 Aug, 2014 [facility] [address] [id number] [address] [place] [address], [place] [address] 06 Aug, 2014 [facility] [address] [id number] [address] [place] [address], [place] [address] 06 Aug, 2014 [facility] [address] [id number] [address] [place] [address], [place] [address] 05 Aug, 2014 [facility] [address] [id number] [address] [place] [address], [place] [address] 05 Aug, 2014 [facility] [address] [id number] [address] [place] [address], [place] [address] 04 Aug, 2014 [facility] [address] [id number] [address] [place] [address], [place] [address] Aug, [facility] [address] [id number] [address] [place] [address], [place] [address] Aug, [facility] [address] [id number] [address] [place] [address], [place] [address] Jul, [facility] [address] [id number] [address] [place] [address], [place] [address] Jul, 2014 [facility] [address] [id number] [address] [place] [address], [place] [address] Jul, 2014 [facility] [address] [id number] [address] [place] [address], [place] [address] Jul, 2014 [facility] [address] [id number] [address] [place] [address], [place] [address] Jul, 2014 [facility] [address] [id number] [address] [place] [address], [place] [address] Jul, 2014 [facility] [address] [id number] [address] [place] [address], [place] [address] Jul, 2014 [facility] [address] [id number] [address] [place] [address], [place] [address] Jul, 2014 [facility] [address] [id number] [address] [place] [address], [place] [address] Jul, 2014 [facility] [address] [id number] [address] [place] [address], [place] [address] Jul, [facility] [address] [id number] [address] [place] [address], [place] [address] Jul, 2014 [facility] [address] [id number] [address] [place] [address], [place] [address] Jul, [facility] [address] [id number] [address] [place] [address], [place] [address] Jul, [facility] [address] [id number] [address] [place] [address] Jul, [facility] [address] [id number] [address] [place] [address], [place] [address] Jun, [facility] [address] [id number] [address] [place] [address] Jun, [facility] [address] [id number] [address] [place] [address] Jun, [facility] [address] [id number] [address] [place] [address], [place] [address] Jun, [facility] [address] [id number] [address] [place] [address], [place] [address] Jun, [facility] [address] [id number] [address] [place] [address], [place] [address] Jun, [facility] [address] [id number] [address] [place] [address], [place] [address] May, [facility] [address] [id number] [address] [place] [address], [place] [address] May, [facility] [address] [id number] [address] [place] [address], [place] [address] May, [facility] [address] [id number] [address] [place] [address], [place] [address] May, [facility] [address] [id number] [address] [place] [address], [place] [address] May, [facility] [address] [id number] [address] [place] [address], [place] [address] May, [facility] [address] [id number] [address] [place] [address], [place] [address] Apr, [facility] [address] [id number] [address] [place] [address], [place] [address] Apr, [facility] [address] [id number] [address] [place] [address], [place] [address] Apr, [facility] [address] [id number] [address] [place] [address], [place] [address] Apr, [facility] [address] [id number] [address] [place] [address], [place] [address] Apr, [facility] [address] [id number] [address] [place] [address], [place] [address] Apr, [facility] [address] [id number] [address] [place] [address] Mar, 2013 [facility] [address] [id number] [address] [place] [address], [place] [address] Mar, 2013 [facility] [address] [id number] [address] [place] [address] Mar, 2013 [facility] [address] [id number] [address] [place] [address], [place] [address] Mar, 2013 [facility] [address] [id number] [address] [place] [address] Mar, 2013 [facility] [address] [id number] [address] [place] [address], [place] [address] Mar, 2013 [facility] [address] [id number] [address] [place] [address] Mar, 2013 [facility] [address] [id number] [address] [place] [address] Mar, 2013 [facility] [address] [id number] [address] [place] [address] Mar, [facility] [address] [id number] [address] [place] [address] Mar, [facility] [address] [id number] [address] [place] [address] Mar, [facility] [address] [id number] [address] [place] [address] Mar, [facility] [address] [id number] [address] [place] [address] 30 Feb, 2013 [facility] [address] [id number] [address] [place] [address] 29 Feb, 2013 [facility] [address] [id number] [address] [place] [address] 29 Feb, 2013 [facility] [address] [id number] [address] [place] [address], [place] [address] 23 Feb, 2013 [facility] [address] [id number] [facility] [place] [address] Feb, [facility] [address] [id number] [address] [place] [address], [place] [address] Feb, [facility] [address] [id number] [address] [place] [address], [place] [address] Feb, [facility] [address] [id number] [address] [place] [address], [place] [address] Jan, [facility] [address] [id number] [address] [place] [address], [place] [address] Jan, [facility] [address] [id number] [address] [place] [address], [place] [address] Jan, [facility] [address] [id number] [address] [place] [address], [place] [address] Dec, [facility] [address] [id number] [address] [place] [address], [place] [address] Dec, [facility] [address] [id number] [address] [place] [address], [place] [address] Dec, [facility] [address] [id number] [address] [place] [address], [place] [address] Dec, [facility] [address] [id number] [address] [place] [address], [place] [address] Sep, [facility] [address] [id number] [address] [place] [address], [place] [address] Sep, [facility] [address] [id number] [address] [place] [address], [place] [address] Sep, [facility] [address] [id number] [address] [place] [address], [place] [address] Sep, [facility] [address] [id number] [address] [place] [address], [place] [address] Sep, [facility] [address] [id number] [address] [place] [address], [place] [address] Sep, [facility] [address] [id number] [address] [place] [address], [place] [address] Sep, [facility] [address] [id number] [address] [place] [address], [place] [address] Sep, [facility] [address] [id number] [address] [place] [address], [place] [address] Aug, [facility] [address] [id number] [address] [place] [address], [place] [address] Aug, [facility] [address] [id number] [address] [place] [address], [place] [address] May, [facility] [address] [id number] [address] [place] [address], [place] [address] May, [facility] [address] [id number] [address] [place] [address], [place] [address] Apr, [facility] [address] [id number] [address] [place] [address], [place] [address] Apr, [facility] [address] [id number] [address] [place] [address], [place] [address] Apr, [facility] [address] [id number] [address] [place] [address], [place] [address] Apr, [facility] [address] [id number] [address] [place] [address], [place] [address] Apr, [facility] [address] [id number] [address] [place] [address], [place] [address] Apr, [facility] [address] [id number] [address] [place] [address], [place] [address] May, [facility] [address] [id number] [address] [place] [address], [place] [address] May, [facility] [address] [id number] [address] [place] [address], [place] [address] May, [facility] [address] [id number] [address] [place] [address], [place] [address] 15 May, 2012 [facility] [address] [id number] [address] [place] [address], [place] [address] 13 May, 2012 [facility] [address] [id number] [address] [place] [address], [place] [address] 13 May, 2012 [facility] [address] [id number] [address] [place] [address], [place] [address] 13 Apr, 2012 [facility] [address] [id number] [address] [place] [address], [place] [address] 13 Apr, 2012 [facility] [address] [id number] [address] [place] [address], [place] [address] 08 Apr, 2012 [facility] [address] [id number] [address] [place] [address], [place] [address] 08 Apr, 2012 [facility] [address] [id number] [address] [place] [address], [place] [address] 08 Apr, 2012 [facility] [address] [id number] [address] [place] [address], [place] [address] 08 Apr, 2012 [facility] [address] [id number] [address] [place] [address], [place] [address] Apr, [facility] [address] [id number] [address] [place] [address], [place] [address] Apr, [facility] [address] [id number] [address] [place] [address], [place] [address] Apr, [facility] [address] [id number] [address] [place] [address], [place] [address] Apr, [facility] [address] [id number] [address] [place] [address], [place] [address] Mar, [facility] [address] [id number] [address] [place] [address], [place] [address] Mar, [facility] [address] [id number] [address] [place] [address], [place] [address] Mar, [facility] [address] [id number] [address] [place] [address], [place] [address] Mar, [facility] [address] [id number] [address] [place] [address], [place] [address] Mar, [facility] [address] [id number] [address] [place] [address], [place] [address] Mar, [facility] [address] [id number] [address] [place] [address], [place] [address] Mar, [facility] [address] [id number] [address] [place] [address], [place] [address] Mar, [facility] [address] [id number] [address] [place] [address], [place] [address] Mar, [facility] [address] [id number] [address] [place] [address], [place] [id number] Feb, [facility] [address] [id number] [address] [place] [address], [place] [id number] 16 Feb, 2012 [facility] [address] [id number] [address] [place] [address], [place] [id number] Feb, [facility] [address] [id number] [address] [place] [address], [place] [id number] Jan, [facility] [address] [id number] [address] [place] [address], [place] [id number] Jan, [facility] [address] [id number] [address] [place] [address], [place] [id number] Jan, [facility] [address] [id number] [address] [place] [address], [place] [address] Jan, [facility] [address] [id number] [address] [place] [address], [place] [id number] Jan, [facility] [address] [id number] [address] [place] [address], [place] [id number] Jan, [facility] [address] [id number] [address] [place] [address], [place] [id number] Jan, [facility] [address] [id number] [address] [place] [address], [place] [id number] Jan, [facility] [address] [id number] [address] [place] [address], [place] [id number] Jan, [facility] [address] [id number] [address] [place] [address], [place] [id number] Jan, [facility] [address] [id number] [address] [place] [address], [place] [id number] Dec, [facility] [address] [id number] [address] [place] [address], [place] [id number] Dec, [facility] [address] [id number] [address] [place] [address], [place] [address] Dec, [facility] [address] [id number] [address] [place] [address], [place] [id number] Dec, [facility] [address] [id number] [address] [place] [address], [place] [id number] Nov, [facility] [address] [id number] [address] [place] [address], [place] [id number] Nov, [facility] [address] [id number] [address] [place] [address], [place] [id number] Nov, [facility] [address] [id number] [address] [place] [address], [place] [id number] October, [facility] [address] [id number] [address] [place] [address], [place] [id number] October, [facility] [address] [id number] [address] [place] [address], [place] [id number] October, [facility] [address] [id number] [address] [place] [address], [place] [id number] October, [facility] [address] [id number] [address] [place] [address], [place] [id number] October, [facility] [address] [id number] [address] [place] [id number] October, [facility] [address] [id number] [address] [place] [id number] Aug, [facility] [address] [id number] [address] [place] [id number] Mar, [facility] [address] [id number] [address] [place] [id number] Nov, [facility] [address] [id number] [address] [place] [id number] May, [facility] [address] [facility] [id number] [address] [place] [id number] May, [facility] [address] [facility] [id number] [address] [place] [id number] Apr, [facility] [address] [facility] [id number] [address] [place] [id number] Mar, [facility] [address] [facility] [id number] [address] [place] [id number] Mar, IMMUNIZATIONS No Known Immunizations SOCIAL HISTORY Never Assessed REASON FOR VISIT f/u PLAN OF CARE Activity Details Follow Up 1 Week Reason: F/U VITAL SIGNS MEDICATIONS Unknown Medications RESULTS No Results PROCEDURES Procedure Date Ordered Result Body Site [facility] VISIT MENTAL [facility] ESTAB PT Jan 19, 2017 Psychotherapy, patient &/family, 45 minutes, established patient Jan 19, 2017 INSTRUCTIONS MEDICATIONS ADMINISTERED No Known Medications MEDICAL (GENERAL) HISTORY Type Description Date Medical History Severe spinal stenosis [facility] cervical spine CT and MRI done [...]
--- OUTSIDE RECORDS SUMMARY | 2019-06-19 05:56 | XMS REPORT ---
Author Author Sydnie MORTON Organization [facility] Address [address] [place] [address] Care Team Providers Care Clinical Data Management Manager Name Role Phone JOHN MORTON Unavailable PROBLEMS Type Condition ICD9-CM Code EYN67-RM Code Onset Dates Condition S tatus SNOMED Code Problem Hormone replacement therapy Z79.890 Ac tive 989154368 Problem Abnormal CT scan, head R93.0 Active 776845786 Problem Sensorineural hearing loss (SNHL) of both ears H90 .3 Active 843065970 Problem Bruising, spontaneous R23.3 Active 959495358 Problem Generalized anxiety disorder F41.1 A ctive 24831615 Problem Arthralgia of hip, unspecified laterality M25.559 Active 65088155 Problem Hematuria, unspecified type R31.9 Ac tive 16409666 Problem Night sweats R61 Active 9718075 0 Problem Hammer toe of right foot M20.41 Activ e 490940091 Problem Major depressive disorder, recurrent episode, moderate F33.1 Active 824278744 Problem Imbalance R26.89 Active 366332216 Problem Slow transit constipation K59.01 Acti ve 35968147 Problem Plantar wart of right foot B07.0 Act mitchell [id number] Problem Grief F43.20 Active 02634269 Problem Hyperlipidemia, unspecified hyperlipidemia type E7 8.5 Active 03363432 Problem Hypertension I10 Active 4802858 3 Problem Bladder spasm N32.89 Active 949218 006 Problem Fibromyalgia M79.7 Active 6564582 7 Problem Sciatica of left side M54.32 Active 32479513 Problem Acute left-sided low back pain with left-sided sciatica M54.42 Active 248481916 Problem Bipolar 1 disorder, mixed F31.60 Acti ve 73113837 Problem Ataxia R27.0 Active 94548690 Problem Other chronic pain G89.29 Active 8 1271673 Problem Gastritis without bleeding, unspecified chronicity, unspecified gastritis type K29.70 Active 548167841 Problem Hot flashes due to menopause N95.1 A ctive 021203417 Problem History of colon polyps Z86.010 Active 411104601 Problem Hearing loss, unspecified laterality H91.90 Active 37552891 Problem Allergic rhinitis J30.9 Active 61 964135 ALLERGIES No Information ENCOUNTERS Encounter Location Date Diagnosis [place] [address] [address] Apr, [place] [address] [address] Apr, [place] [address] [address] Mar, [place] [address] [address] Mar, [place] [address] [address] 16 Mar, 2018 [place] [address] [address] 03 Mar, 2018 Slow transit constipation K5 9.01 ; Encounter for immunization Z23 and Generalized anxiety disorder F41.1 [place] [address] [place] [id number] [place] [address] 27 Feb, 2018 Bipolar 1 disorder, mixed F3 1.60 [place] [address] [place] [id number] [place] [address] 26 Feb, 2018 Allergic rhinitis J30.9 [place] [address] [place] [id number] [place] [address] 24 Feb, 2018 Bipolar 1 disorder, mixed F3 1.60 [place] [address] [place] [id number] [place] [address] 20 Feb, 2018 Bipolar 1 disorder, mixed F3 1.60 and Generalized anxiety disorder F41.1 [place] [address] [place] [id number] [place] [address] 13 Feb, 2018 Bipolar 1 disorder, mixed F3 1.60 [facility] [address] [place] [id number] [place] [address] Feb, Allergic rhinitis J30.9 [facility] [address] [place] [id number] [place] [address] Feb, [facility] [address] [place] [id number] [place] [address] Jan, Bipolar 1 disorder, mixed F3 1.60 [facility] [address] [place] [id number] [place] [address] Jan, Low back pain M54.5 ; Hyperl ipidemia, unspecified hyperlipidemia type E78.5 and Bipolar 1 disorder, mixed F31.60 [place] [address] [place] [id number] [place] [address] Jan, Bipolar 1 disorder, mixed F3 1.60 [place] [address] [address] Jan, Bipolar 1 disorder, mixed F3 1.60 [place] [address] [place] [id number] [place] [address] Jan, Bipolar 1 disorder, mixed F3 1.60 [place] [address] [place] [id number] [place] [address] Jan, Bipolar 1 disorder, mixed F3 1.60 [place] [address] [place] [address] Dec, Bipolar 1 disorder, mixed F3 1.60 ; Generalized anxiety disorder F41.1 and Other long-term (current) 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 Z79.899 [place] [address] [place] [id number] [place] [address] Dec, 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 [facility] [address] [place] [id number] [place] [address] Dec, Bipolar 1 disorder, mixed F3 1.60 [place] [address] [place] [id number] [place] [address] Dec, Bipolar 1 disorder, mixed F3 1.60 [facility] [address] [address] Nov, Bipolar 1 disorder, mixed F3 1.60 [facility] [address] [place] [id number] [place] [address] Nov, Bipolar 1 disorder, mixed F3 1.60 [facility] [address] [address] Nov, Bipolar 1 disorder, mixed F3 1.60 [place] [address] [address] Nov, Allergic rhinitis J30.9 [place] [address] [address] Nov, Allergic rhinitis J30.9 [facility] [address] [address] Nov, [facility] [address] [address] Nov, Bipolar 1 disorder, mixed F3 1.60 [facility] [address] [place] [id number] [place] [address] Nov, Fibromyalgia M79.7 and Aller gic rhinitis J30.9 [facility] [address] [place] [id number] [place] [address] October, Bipolar 1 disorder, mixed F3 1.60 [facility] [address] [place] [id number] [place] [address] October, Acute nasopharyngitis J00 [facility] [address] [place] [id number] [place] [address] October, Bitten or stung by nonvenomo us insect and other nonvenomous arthropods, initial encounter W57.XXXA and Insect bite (nonvenomous) of abdominal wall, initial encounter S30.861A [facility] [address] [place] [id number] [place] [address] October, Insect bite (nonvenomous) of abdominal wall, initial encounter S30.861A ; Bitten or stung by nonvenomous insect and other nonvenomous arthropods, initial encounter W57.XXXA ; Allergic rhinitis J30.9 and Low back pain M54.5 [facility] [address] [facility] [id number] [address] [place] [address] October, Bipolar 1 disorder, mixed F3 1.60 [facility] [address] [place] [id number] [place] [address] October, [facility] [address] [place] [id number] [place] [address] October, [facility] [address] [place] [id number] [place] [address] October, Bipolar 1 disorder, mixed F3 1.60 [facility] [address] [facility] [id number] [address] [place] [address] Sep, Bipolar 1 disorder, mixed F3 1.60 [facility] [address] [place] [id number] [place] [address] Sep, Other chronic pain G89.29 [facility] [address] [place] [id number] [place] [address] Sep, [facility] [address] [place] [id number] [place] [address] Sep, Bipolar 1 disorder, mixed F3 1.60 [facility] [address] [place] [id number] [place] [address] Sep, Allergic rhinitis J30.9 and Sciatica of left side M54.32 [facility] [address] [place] [id number] [place] [address] Sep, Bipolar 1 disorder, mixed F3 1.60 [facility] [address] [place] [id number] [place] [address] Sep, Bipolar 1 disorder, mixed F3 1.60 and Generalized anxiety disorder F41.1 [facility] [address] [facility] [id number] [address] [place] [address] Aug, [facility] [address] [facility] [id number] [address] [place] [address] Aug, Bipolar 1 disorder, mixed F3 1.60 [facility] [address] [facility] [id number] [address] [place] [address] Aug, Bipolar 1 disorder, mixed F3 1.60 [facility] [address] [facility] [id number] [address] [place] [address] Aug, [facility] [address] [facility] [id number] [address] [place] [address] Aug, Generalized anxiety disorder F41.1 [facility] [address] [facility] [id number] [address] [place] [address] Aug, Bipolar 1 disorder, mixed F3 1.60 [facility] [address] [facility] [id number] [address] [place] [address] Aug, Plantar wart of right foot B 07.0 [facility] [address] [facility] [id number] [address] [place] [address] Aug, Bipolar 1 disorder, mixed F3 1.60 [facility] [address] [facility] [id number] [address] [place] [address] Jul, Bipolar 1 disorder, mixed F3 1.60 [facility] [address] [facility] [id number] [address] [place] [address] Jul, [facility] [address] [facility] [id number] [address] [place] [address] Jul, Bipolar 1 disorder, mixed F3 1.60 [facility] [address] [facility] [id number] [address] [place] [address] Jul, Generalized anxiety disorder F41.1 [facility] [address] [facility] [id number] [address] [place] [address] 07 Jul, 2017 Bipolar 1 disorder, mixed F3 1.60 [facility] [address] [facility] [id number] [address] [place] [address] Jul, Acute left-sided low back pa in with left-sided sciatica M54.42 [place] [address] [facility] [id number] [address] [place] [address] Jul, Coccydynia M53.3 [place] [address] [facility] [id number] [address] [place] [address] Jun, Bipolar 1 disorder, mixed F3 1.60 [facility] [address] [facility] [id number] [address] [place] [address] Jun, Acute nasopharyngitis J00 [place] [address] [facility] [id number] [address] [place] [address] Jun, Bipolar 1 disorder, mixed F3 1.60 [place] [address] [facility] [id number] [address] [place] [address] Jun, Fibromyalgia M79.7 [place] [address] [facility] [id number] [address] [place] [address] Jun, Bipolar 1 disorder, mixed F3 1.60 [place] [address] [facility] [id number] [address] [place] [address] Jun, Fibromyalgia M79.7 and Bipol ar 1 disorder, mixed F31.60 [place] [address] [facility] [id number] [address] [place] [address] May, Bipolar 1 disorder, mixed F3 1.60 ; Generalized anxiety disorder F41.1 and Other long-term (current) 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 Z79.899 [place] [address] [facility] [id number] [address] [place] [address] May, Bipolar 1 disorder, mixed F3 1.60 [facility] [address] [address] 14 May, 2017 Cough R05 and Body aches R52 [facility] [address] [address] 10 May, 2017 Bladder spasm N32.89 and Acu te cystitis without hematuria N30.00 [place] [address] [address] 07 May, 2017 Bipolar 1 disorder, mixed F3 1.60 [place] [address] [address] 30 Apr, 2017 [place] [address] Apr, Major depressive disorder, r ecurrent episode, moderate F33.1 and Encounter for immunization Z23 [place] [address] [address] Apr, Bipolar 1 disorder, mixed F3 1.60 [place] [address] [address] 22 Apr, 2017 Bipolar 1 disorder, mixed F3 1.60 [place] [address] [address] 16 Apr, 2017 Bipolar 1 disorder, mixed F3 1.60 [place] [address] [address] 13 Apr, 2017 Yeast vaginitis B37.3 [place] [address] [address] 09 Apr, 2017 Bipolar 1 disorder, mixed F3 1.60 [facility] [address] [address] 07 Apr, [address]itis [address]03[address] for immunization Z23 [place] [address] [address] 02 Apr, 2017 Bipolar 1 disorder, mixed F3 1.60 [place] [address] [address] Mar, Bipolar 1 disorder, mixed F3 1.60 [place] [address] [place] [address] Mar, Bipolar 1 disorder, mixed F3 1.60 [place] [address] [address] Mar, Imbalance R26.89 [address] Encount er for immunization Z23 [place] [address] [address] Mar, Generalized anxiety disorder F41.1 [place] [address] [address] Mar, Bipolar 1 disorder, mixed F3 1.60 [place] [address] [address] Mar, Generalized anxiety disorder F41.1 [place] [address] [address] Mar, Bipolar 1 disorder, mixed F3 1.60 [place] [address] [address] Mar, Bipolar 1 disorder, mixed F3 1.60 [place] [address] [address] Feb, Bipolar 1 disorder, mixed F3 1.60 [place] [address] [address] Feb, Bipolar 1 disorder, mixed F3 1.60 and Generalized anxiety disorder F41.1 [place] [address] [address] Feb, Gastritis without bleeding, unspecified chronicity, unspecified gastritis type K29.70 ; Hammer toe of right foot M20.41 and Other viral warts B07.8 [place] [address] [place] [id number] [place] [address] 20 Feb, 2017 Bipolar 1 disorder, mixed F3 1.60 [facility] [address] [place] [id number] [place] [address] 13 Feb, 2017 Bipolar 1 disorder, mixed F3 1.60 [facility] [address] [place] [id number] [place] [address] 05 Feb, 2017 Bipolar 1 disorder, mixed F3 1.60 [place] [address] [place] [id number] [place] [address] Jan, Encounter for screening mamm ogram for breast cancer Z12.31 ; Other viral warts B07.8 and Allergic rhinitis J30.9 [place] [address] [place] [id number] [place] [address] Jan, Bipolar 1 disorder, mixed F3 1.60 [place] [address] [place] [id number] [place] [address] Jan, Bipolar 1 disorder, mixed F3 1.60 [place] [address] [place] [id number] [place] [address] Jan, [place] [address] [place] [id number] [place] [address] Jan, Bipolar 1 disorder, mixed F3 1.60 [place] [address] [place] [id number] [place] [address] Jan, Bipolar 1 disorder, mixed F3 1.60 [place] [address] [facility] [id number] [address] [place] [address] Jan, Allergic rhinitis J30.9 ; He maturia R31.9 and Colon cancer screening Z12.11 [place] [address] [facility] [id number] [address] [place] [address] Dec, Bipolar 1 disorder, mixed F3 1.60 [place] [address] [place] [id number] [place] [address] Dec, Bipolar 1 disorder, mixed F3 1.60 ; Generalized anxiety disorder F41.1 and 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 [facility] [address] [facility] [id number] [address] [place] [address] Dec, Bipolar 1 disorder, mixed F3 1.60 [facility] [address] [facility] [id number] [address] [place] [address] Dec, Bipolar 1 disorder, mixed F3 1.60 [facility] [address] [facility] [id number] [address] [place] [address] Dec, Bipolar 1 disorder, mixed F3 1.60 [place] [address] [place] [id number] [place] [address] Dec, Low back pain M54.5 and Recu rrent urinary tract infection N39.0 [place] [address] [place] [id number] [place] [address] Nov, Bipolar 1 disorder, mixed F3 1.60 [facility] [address] [facility] [id number] [address] [place] [address] Nov, Bipolar 1 disorder, mixed F3 1.60 [place] [address] [facility] [id number] [address] [place] [address] Nov, Bipolar 1 disorder, mixed F3 1.60 [facility] [address] [facility] [id number] [address] [place] [address] Nov, Bipolar 1 disorder, mixed F3 1.60 [facility] [address] [facility] [id number] [address] [place] [address] Nov, [place] [address] [facility] [id number] [address] [place] [address] Nov, Anesthesia of skin R20.0 ; F requent UTI N39.0 ; Tobacco abuse Z72.0 and Colon cancer screening Z12.11 [facility] [address] [facility] [id number] [address] [place] [address] Nov, Bipolar 1 disorder, mixed F3 1.60 [facility] [address] [facility] [id number] [address] [place] [address] October, Bipolar 1 disorder, mixed F3 1.60 [facility] [address] [facility] [id number] [address] [place], [place] [address] October, Bipolar 1 disorder, mixed F3 1.60 [facility] [address] [facility] [id number] [address] [place] [address] October, Bipolar 1 disorder, mixed F3 1.60 [facility] [address] [facility] [id number] [address] [place] [address] October, Bipolar 1 disorder, mixed F3 1.60 [facility] [address] [place] [id number] [place] [address] October, Bipolar 1 disorder, mixed F3 1.60 [facility] [address] [place] [id number] [place] [address] October, Cervicalgia M54.2 and Bipola r 1 disorder, mixed F31.60 [facility] [address] [facility] [id number] [address] [place] [address] October, Hypertension I10 ; Hyperlipi demia, unspecified hyperlipidemia type E78.5 and Family history of thyroid disease Z83.49 [facility] [address] [place] [id number] [address] [place] [address] October, [facility] [address] [facility] [id number] [address] [place] [address] October, Hypertension I10 ; Hyperlipi demia, unspecified hyperlipidemia type E78.5 and Family history of thyroid problem Z83.49 [facility] [address] [facility] [id number] [address] [place] [address] October, Bipolar 1 disorder, mixed F3 1.60 [facility] [address] [facility] [id number] [address] [place] [address] Sep, Bipolar 1 disorder, mixed F3 1.60 [facility] [address] [place] [id number] [address] [place] [address] Sep, Bipolar 1 disorder, mixed F3 1.60 [facility] [address] [place] [id number] [place] [address] Sep, Bipolar 1 disorder, mixed F3 1.60 [facility] [address] [place] [id number] [place] [address] Sep, History of colon polyps Z86. 010 and Hematochezia K92.1 [facility] [address] [place] [id number] [address] [place] [address] Sep, Major depressive disorder, r ecurrent episode, moderate F33.1 [place] [address] [place] [id number] [place] [address] Sep, Bipolar 1 disorder, mixed F3 1.60 [place] [address] [address] Aug, Hot flashes due to menopause N95.1 [facility] [address] [place] [id number] [place] [address] Aug, Bipolar 1 disorder, mixed F3 1.60 [place] [address] [place] [address] Aug, [facility] [address] [place] [id number] [place] [address] Aug, Bipolar 1 disorder, mixed F3 1.60 [place] [address] [place] [address] Aug, Bipolar 1 disorder, mixed F3 1.60 [place] [address] [address] Aug, Hot flashes due to menopause N95.1 ; Cervicalgia M54.2 and Ataxia R27.0 [facility] [address] [place] [id number] [address] [place] [address] Jul, Bipolar 1 disorder, mixed F3 1.60 [facility] [address] [address] Jul, Bipolar 1 disorder, mixed F3 1.60 [place] [address] [place] [address] Jul, Bipolar 1 disorder, mixed F3 1.60 [place] [address] [address] Jul, Bipolar 1 disorder, mixed F3 1.60 [place] [address] [address] Jul, Bipolar 1 disorder, mixed F3 1.60 [place] [address] [address] 08 Jul, 2016 Cervicalgia M54.2 ; Tremor R 25.1 ; Hearing abnormally acute, unspecified laterality H93.239 ; Alopecia L65.9 ; Encounter for immunization Z23 and Family history of thyroid disease Z83.49 [place] [address] [address] Jul, Bipolar 1 disorder, mixed F3 1.60 [place] [address] [address] Jun, [place] [address] [address] Jun, Hearing disorder, unspecifie d laterality H93.299 [place] [address] [address] Jun, Bipolar 1 disorder, mixed F3 1.60 [place] [address] [address] Jun, Bipolar 1 disorder, mixed F3 1.60 [place] [address] [address] Jun, Allergic rhinitis J30.9 [place] [address] [place] [id number] [place] [address] Jun, Bipolar 1 disorder, mixed F3 1.60 [facility] [address] [id number] [address] [place] [address] Jun, Bipolar 1 disorder, mixed F3 1.60 [facility] [address] [facility] [id number] [address] [place] [id number] Jun, Allergic rhinitis J30.9 [facility] [address] [facility] [id number] [address] [place] [address] Jun, Allergic rhinitis J30.9 [facility] [address] [id number] [address] [place] [id number] Jun, Bipolar 1 disorder, mixed F3 1.60 [facility] [address] [facility] [id number] [address] [place] [id number] May, Bipolar 1 disorder, mixed F3 1.60 [facility] [address] [facility] [id number] [address] [place] [id number] May, Bipolar 1 disorder, mixed F3 1.60 [facility] [address] [facility] [id number] [address] [place] [id number] May, [facility] [address] [facility] [id number] [address] [place] [id number] May, Bipolar 1 disorder, mixed F3 1.60 [facility] [address] [facility] [id number] [address] [place] [id number] May, Bipolar 1 disorder, mixed F3 1.60 [facility] [address] [facility] [id number] [address] [place] [id number] May, [facility] [address] [facility] [id number] [address] [place] [id number] May, [facility] [facility] [address] [facility] [id number] [address] [place] [address] May, [facility] [address] [facility] [id number] [address] [place] [address] May, Abdominal pain, unspecified location R10.9 [facility] [address] [address] May, [facility] [address] [address] Apr, Hematuria R31.9 ; Ataxia R27 .0 and Hearing loss, unspecified laterality H91.90 [facility] [address] [address] Apr, Bipolar 1 disorder, mixed F3 1.60 [facility] [address] [address] Apr, Acute effusion of both middl e ears H65.193 [place] [address] [address] Apr, Hematuria R31.9 and Pyelonep hritis N12 [facility] [address] [address] Apr, [place] [address] [address] Mar, Bipolar 1 disorder, mixed F3 1.60 [place] [address] [address] Mar, [facility] [address] [address] Mar, Bipolar 1 disorder, mixed F3 1.60 [place] [address] [address] Mar, Bipolar 1 disorder, mixed F3 1.60 [place] [address] [address] Mar, Encounter for immunization Z 23 and Gastritis without bleeding, unspecified chronicity, unspecified gastritis type K29.70 [place] [address] [address] Mar, Bipolar 1 disorder, mixed F3 1.60 and Grief F43.20 [place] [address] [place] [address] Mar, Gastritis without bleeding, unspecified chronicity, unspecified gastritis type K29.70 [place] [address] [place] [id number] [address] [place], [place] [id number] Mar, Bipolar 1 disorder, mixed F3 1.60 [place] [address] [place] [id number] [address] [place] [address] Mar, Gastritis without bleeding, unspecified chronicity, unspecified gastritis type K29.70 [place] [address] [place] [id number] [address] [place] [address] Mar, [place] [address] [place] [id number] [place] [address] Feb, Bipolar 1 disorder, mixed F3 1.60 [place] [address] [place] [id number] [address] [place] [address] Feb, Bipolar 1 disorder, mixed F3 1.60 and Grief F43.20 [place] [address] [place] [id number] [address] [place] [address] Feb, Gastritis without bleeding, unspecified chronicity, unspecified gastritis type K29.70 [place] [address] [place] [id number] [address] [place] [address] 14 Feb, 2016 Bipolar 1 disorder, mixed F3 1.60 [facility] [address] [place] [id number] [address] [place] [address] 09 Feb, 2016 Gastroesophageal reflux dise ase, esophagitis presence not specified K21.9 [facility] [address] [place] [id number] [address] [place] [address] Jan, Bipolar 1 disorder, mixed F3 1.60 [place] [address] [place] [id number] [address] [place] [address] Jan, Bipolar 1 disorder, mixed F3 1.60 and Unsteady gait R26.81 [facility] [address] [id number] [address] [place] [address] Jan, Bipolar 1 disorder, mixed F3 1.60 [facility] [address] [id number] [address] [place] [address] Jan, Bipolar 1 disorder, mixed F3 1.60 and 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 [facility] [address] [id number] [address] [place] [address] Jan, Bipolar 1 disorder, mixed F3 1.60 [place] [address] [facility] [id number] [address] [place] [address] Jan, Bipolar 1 disorder, mixed F3 1.60 [place] [address] [facility] [id number] [address] [place] [address] Jan, Bipolar 1 disorder, mixed F3 1.60 ; Grief F43.20 and Other long-term (current) 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 Z79.899 [facility] [address] [facility] [id number] [address] [place] [address] Jan, Bipolar 1 disorder, mixed F3 1.60 [facility] [address] [facility] [id number] [address] [place] [address] Dec, [facility] [address] [facility] [id number] [address] [place] [address] Dec, Bipolar 1 disorder, mixed F3 1.60 ; Vitamin D deficiency, unspecified E55.9 ; H/O allergic rhinitis Z87.09 ; Other chronic pain G89.29 and Dorsalgia, unspecified M54.9 [facility] [address] [facility] [id number] [address] [place] [address] Dec, [facility] [address] [facility] [id number] [address] [place] [address] Dec, Bipolar 1 disorder, mixed F3 1.60 [facility] [address] [facility] [id number] [address] [place] [address] Dec, Major depressive disorder, r ecurrent episode, moderate F33.1 [place] [address] [place] [address] Dec, Major depressive disorder, r ecurrent episode, moderate F33.1 [facility] [address] [place] [address] Nov, [place] [address] [address] Nov, Bipolar 1 disorder, mixed F3 1.60 [place] [address] [address] Nov, Major depressive disorder, r ecurrent episode, moderate F33.1 [place] [address] [address] Nov, Cervicalgia M54.2 ; Arthralg ia of hip, unspecified laterality M25.559 ; Allergic rhinitis J30.9 and Hormone replacement therapy Z79.890 [facility] [address] [place] [id number] [address] [place] [address] Nov, Other seasonal allergic rhin itis J30.2 [place] [address] [place] [id number] [address] [place] [address] October, Major depressive disorder, r ecurrent episode, moderate F33.1 [place] [address] [place] [address] October, Major depressive disorder, r ecurrent episode, moderate F33.1 and Arthralgia of hip, unspecified laterality M25.559 [place] [address] [address] October, Grief F43.20 ; Hypertension I10 ; Hyperlipidemia, unspecified hyperlipidemia type E78.5 ; Other chronic pain G89.29 and Allergic rhinitis, unspecified allergic rhinitis type J30.9 [facility] [address] [place] [address] [address] October, Major depressive disorder, r ecurrent episode, moderate F33.1 [facility] [address] [id number] [address] [place] [address] Sep, Major depressive disorder, r ecurrent episode, moderate F33.1 [facility] [address] [facility] [id number] [address] [place] [address] Sep, [facility] [address] [facility] [id number] [address] [place] [address] Sep, Major depressive disorder, r ecurrent episode, moderate F33.1 [place] [address] [facility] [id number] [address] [place] [address] Sep, Grief F43.20 [place] [address] [place] [id number] [address] [place] [address] Aug, Major depressive disorder, r ecurrent episode, moderate F33.1 [place] [address] [facility] [id number] [address] [place] [address] Aug, Bipolar 1 disorder, mixed F3 1.60 [place] [address] [facility] [id number] [address] [place] [address] Aug, Allergic rhinitis J30.9 ; Ce rvicalgia M54.2 and Low back pain M54.5 [facility] [address] [facility] [id number] [address] [place] [address] Aug, Major depressive disorder, r ecurrent episode, moderate F33.1 [facility] [address] [facility] [id number] [address] [place] [address] Aug, Sinusitis J32.9 and Tobacco 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 [facility] [address] [facility] [id number] [address] [place] [address] Aug, [facility] [address] [facility] [id number] [address] [place] [address] Aug, Depressive disorder, not els ewhere classified F32.9 ; Hormone replacement therapy Z79.[address] scan, head R93.0 [facility] [address] [id number] [address] [place] [address] Aug, Major depressive disorder, r ecurrent episode, moderate F33.1 [facility] [address] [id number] [address] [place] [address] Jul, Major depressive disorder, r ecurrent episode, moderate F33.1 [facility] [address] [id number] [address] [place] [address] Jul, Abdominal pain R10.9 and Hyp ertension I10 [facility] [address] [id number] [address] [place] [address] Jul, [facility] [address] [id number] [address] [place] [address] Jul, Major depressive disorder, r ecurrent episode, moderate F33.1 [facility] [address] [id number] [address] [place] [address] Jul, [facility] [address] [id number] [address] [place] [address] Jul, [facility] [address] [id number] [address] [place] [address] Jun, [facility] [address] [id number] [address] [place] [address] Jun, Depressive disorder, not els ewhere classified F32.9 [facility] [address] [id number] [address] [place] [address] Jun, [facility] [address] [id number] [address] [place] [address] Jun, [facility] [address] [id number] [address] [place] [address] Jun, Arthralgia of hip, unspecifi ed laterality M25.559 ; Bruising, spontaneous R23.3 and Night sweats R61 [facility] [address] [id number] [address] [place] [address] Jun, [facility] [address] [facility] [id number] [address] [place] [address] Jun, [facility] [address] [facility] [id number] [address] [place] [address] May, [facility] [address] [facility] [id number] [address] [place] [address] May, Myalgia M79.1 and Screening, lipid Z13.220 [facility] [address] [place] [id number] [address] [place] [address] Apr, Status post cervical spinal fusion Z98.1 ; Fibromyalgia M79.7 and Unsteady gait R26.81 [facility] [address] [place] [id number] [address] [place] [address] Nov, [facility] [address] [facility] [id number] [address] [place] [address] Nov, [facility] [address] [facility] [id number] [address] [place] [address] October, [facility] [address] [facility] [id number] [address] [place] [address] October, [facility] [address] [facility] [id number] [address] [place] [address] October, [facility] [address] [facility] [id number] [address] [place] [address] October, [facility] [address] [facility] [id number] [address] [place] [address] October, [facility] [address] [facility] [id number] [address] [place] [address] October, Dysuria 788.1 ; Nausea 787.0 2 and Urinary tract infection 599.0 [facility] [address] [id number] [address] [place] [address], [place] [address] 14 Sep, 2014 [facility] [address] [id number] [address] [place] [address], [place] [address] 13 Sep, 2014 [facility] [address] [id number] [address] [place] [address], [place] [address] 25 Aug, 2014 [facility] [address] [id number] [address] [place] [address], [place] [address] 25 Aug, 2014 [facility] [address] [id number] [address] [place] [address], [place] [address] 24 Aug, 2014 [facility] [address] [id number] [address] [place] [address], [place] [address] 24 Aug, 2014 [facility] [address] [id number] [address] [place] [address], [place] [address] 23 Aug, 2014 [facility] [address] [id number] [address] [place] [address], [place] [address] 19 Aug, 2014 [facility] [address] [id number] [address] [place] [address], [place] [address] 19 Aug, 2014 [facility] [address] [id number] [address] [place] [address], [place] [address] 19 Aug, 2014 [facility] [address] [id number] [address] [place] [address], [place] [address] 19 Aug, 2014 [facility] [address] [id number] [address] [place] [address], [place] [address] 18 Aug, 2014 [facility] [address] [id number] [address] [place] [address], [place] [address] 18 Aug, 2014 [facility] [place] [facility] [address] [id number] [address] [place] [address], [place] [address] 13 Aug, 2014 [facility] [address] [id number] [address] [place] [address], [place] [address] 13 Aug, 2014 [facility] [address] [id number] [address] [place] [address], [place] [address] Aug, [facility] [place] [facility] [address] [id number] [address] [place] [address], [place] [address] Aug, [facility] [place] [facility] [address] [id number] [address] [place] [address], [place] [address] Aug, [facility] [place] [facility] [address] [id number] [address] [place] [address], [place] [address] Aug, [facility] [place] [facility] [address] [id number] [address] [place] [address], [place] [address] Aug, 2014 [facility] [address] [id number] [address] [place] [address], [place] [address] Aug, [facility] [place] [facility] [address] [id number] [address] [place] [address], [place] [address] Aug, [facility] [address] [id number] [address] [place] [address], [place] [address] Aug, [facility] [place] [facility] [address] [id number] [address] [place] [address], [place] [address] Aug, [facility] [address] [id number] [address] [place] [address], [place] [address] Jul, [facility] [place] [facility] [address] [id number] [address] [place] [address], [place] [address] Jul, [facility] [place] [facility] [address] [id number] [address] [place] [address], [place] [address] Jul, [facility] [place] [facility] [address] [id number] [address] [place] [address], [place] [address] Jul, [facility] [place] [facility] [address] [id number] [address] [place] [address], [place] [address] Jul, [facility] [place] [facility] [address] [id number] [address] [place] [address], [place] [address] Jul, [facility] [place] [facility] [address] [id number] [address] [place] [address], [place] [address] Jul, [facility] [place] [facility] [address] [id number] [address] [place] [address], [place] [address] Jul, 2014 [facility] [address] [id number] [address] [place] [address], [place] [address] Jul, 2014 [facility] [address] [id number] [address] [place] [address], [place] [address] Jul, 2014 [facility] [address] [id number] [address] [place] [address], [place] [address] Jul, 2014 [facility] [address] [id number] [address] [place] [address], [place] [address] Jul, 2014 [facility] [address] [id number] [address] [place] [address], [place] [address] Jul, 2014 [facility] [address] [id number] [address] [place] [address], [place] [address] Jul, 2014 [facility] [address] [id number] [address] [place] [address], [place] [address] Jun, [facility] [address] [id number] [address] [place] [address], [place] [address] Jun, [facility] [address] [id number] [address] [place] [address], [place] [address] Jun, [facility] [address] [id number] [address] [place] [address], [place] [address] Jun, [facility] [address] [id number] [address] [place] [address], [place] [address] Jun, [facility] [address] [id number] [address] [place] [address], [place] [address] Jun, [facility] [address] [id number] [address] [place] [address], [place] [address] May, [facility] [place] [facility] [address] [id number] [address] [place] [address], [place] [address] May, [facility] [address] [id number] [address] [place] [address], [place] [address] May, [facility] [place] [facility] [address] [id number] [address] [place] [address], [place] [address] May, [facility] [place] [facility] [address] [id number] [address] [place] [address], [place] [address] May, [facility] [place] [facility] [address] [id number] [address] [place] [address], [place] [address] May, [facility] [place] [facility] [address] [id number] [address] [place] [address], [place] [address] Apr, [facility] [place] [facility] [address] [id number] [address] [place] [address], [place] [address] Apr, [facility] [place] [facility] [address] [id number] [address] [place] [address], [place] [address] Apr, [facility] [place] [facility] [address] [id number] [address] [place] [address], [place] [address] Apr, [facility] [place] [facility] [address] [id number] [address] [place] [address], [place] [address] Apr, [facility] [place] [facility] [address] [id number] [address] [place] [address], [place] [address] Apr, [facility] [place] [facility] [address] [id number] [address] [place] [address], [place] [address] Mar, [facility] [place] [facility] [address] [id number] [address] [place] [address] Mar, [facility] [place] [facility] [address] [id number] [address] [place] [address] Mar, [facility] [place] [facility] [address] [id number] [address] [place] [address], [place] [address] Mar, [facility] [place] [facility] [address] [id number] [address] [place] [address] Mar, [facility] [place] [facility] [address] [id number] [address] [place] [address] Mar, [facility] [place] [facility] [address] [id number] [address] [place] [address], [place] [address] Mar, [facility] [address] [id number] [address] [place] [address], [place] [address] Mar, [facility] [place] [facility] [address] [id number] [address] [place] [address], [place] [address] Mar, [facility] [place] [facility] [address] [id number] [address] [place] [address], [place] [address] Mar, [facility] [place] [facility] [address] [id number] [address] [place] [address], [place] [address] Mar, [facility] [place] [facility] [address] [id number] [address] [place] [address], [place] [address] Mar, [facility] [place] [facility] [address] [id number] [address] [place] [address], [place] [address] 30 Feb, 2014 [facility] [place] [facility] [address] [id number] [address] [place] [address], [place] [address] 29 Feb, 2013 [facility] [place] [facility] [address] [id number] [address] [place] [address], [place] [address] 29 Feb, 2013 [facility] [place] [facility] [address] [id number] [address] [place] [address], [place] [address] 23 Feb, 2013 [facility] [address] [id number] [address] [place] [address], [place] [address] 23 Feb, 2013 [facility] [address] [id number] [address] [place] [address], [place] [address] 08 Feb, 2013 [facility] [address] [id number] [address] [place] [address], [place] [address] 08 Feb, 2013 [facility] [address] [id number] [address] [place] [address], [place] [address] Jan, [facility] [address] [id number] [address] [place] [address], [place] [address] Jan, [facility] [address] [id number] [address] [place] [address], [place] [address] 16 Jan, 2014 [facility] [address] [id number] [facility] [place] [address] Dec, [facility] [address] [id number] [facility] [place] [address] Dec, [facility] [address] [id number] [address] [place] [address], [place] [address] Dec, [facility] [address] [id number] [address] [place] [address], [place] [address] Dec, [facility] [address] [id number] [address] [place] [address], [place] [address] Sep, [facility] [address] [id number] [address] [place] [address], [place] [address] Sep, [facility] [address] [id number] [address] [place] [address], [place] [address] Sep, [facility] [address] [id number] [address] [place] [address], [place] [address] Sep, [facility] [address] [id number] [address] [place] [address], [place] [address] Sep, [facility] [address] [id number] [address] [place] [address], [place] [address] Sep, [facility] [address] [id number] [address] [place] [address], [place] [address] Sep, [facility] [address] [id number] [address] [place] [address], [place] [address] Sep, [facility] [address] [id number] [address] [place] [address], [place] [address] Aug, [facility] [address] [id number] [address] [place] [address], [place] [address] Aug, [facility] [address] [id number] [address] [place] [address], [place] [address] May, [facility] [address] [id number] [address] [address] May, [facility] [address] [id number] [address] [place] [address], [place] [address] Apr, [facility] [address] [id number] [address] [place] [address], [place] [address] Apr, [facility] [address] [id number] [address] [place] [address], [place] [address] Apr, [facility] [address] [id number] [address] [place] [address], [place] [address] Apr, [facility] [address] [id number] [address] [place] [address], [place] [address] Apr, [facility] [address] [id number] [address] [place] [address], [place] [address] Apr, [facility] [address] [id number] [address] [place] [address], [place] [address] May, [facility] [address] [id number] [address] [place] [address], [place] [address] 18 May, 2012 [facility] [address] [id number] [address] [place] [address], [place] [address] 15 May, 2012 [facility] [address] [id number] [address] [place] [address], [place] [address] 15 May, 2012 [facility] [address] [id number] [address] [place] [address], [place] [address] 13 May, 2012 [facility] [facility] [address] [id number] [address] [place] [address], [place] [address] 13 May, 2012 [facility] [address] [id number] [address] [place] [address], [place] [address] Apr, [facility] [address] [id number] [address] [place] [address], [place] [address] 13 Apr, 2012 [facility] [address] [id number] [address] [place] [address], [place] [address] 08 Apr, 2012 [facility] [address] [id number] [address] [place] [address], [place] [address] 08 Apr, 2012 [facility] [address] [id number] [address] [place] [address], [place] [address] Apr, [facility] [address] [id number] [address] [place] [address], [place] [address] Apr, [facility] [address] [id number] [address] [place] [address], [place] [address] Apr, [facility] [address] [id number] [address] [place] [address], [place] [address] Apr, [facility] [address] [id number] [address] [place] [address], [place] [address] Apr, [facility] [address] [id number] [address] [place] [address], [place] [address] Apr, [facility] [address] [id number] [address] [place] [address], [place] [address] Mar, [facility] [address] [id number] [address] [place] [address], [place] [address] Mar, [facility] [address] [id number] [address] [place] [address], [place] [address] Mar, [facility] [address] [id number] [address] [place] [address] Mar, [facility] [address] [id number] [address] [place] [address], [place] [address] Mar, [facility] [address] [id number] [address] [place] [address] Mar, [facility] [address] [id number] [address] [place] [address], [place] [address] Mar, [facility] [address] [id number] [address] [place] [address], [place] [address] Mar, [facility] [address] [id number] [address] [place] [address], [place] [address] Mar, [facility] [address] [id number] [address] [place] [address], [place] [address] 25 Feb, 2012 [facility] [address] [id number] [address] [place] [address], [place] [address] 16 Feb, 2012 [facility] [address] [id number] [address] [place] [address], [place] [address] Feb, [facility] [address] [id number] [address] [place] [address], [place] [address] Jan, [facility] [address] [id number] [address] [place] [address], [place] [address] Jan, [facility] [address] [id number] [address] [place] [address], [place] [address] Jan, [facility] [address] [id number] [address] [place] [address], [place] [address] Jan, [facility] [address] [id number] [address] [place] [address], [place] [address] Jan, [facility] [address] [id number] [address] [place] [address], [place] [address] Jan, [facility] [address] [id number] [address] [place] [address], [place] [address] Jan, [facility] [address] [id number] [address] [place] [address], [place] [address] Jan, [facility] [address] [id number] [address] [place] [address], [place] [address] Jan, [facility] [address] [id number] [address] [place] [address], [place] [address] Jan, [facility] [address] [id number] [address] [place] [address], [place] [address] Dec, [facility] [address] [id number] [address] [place] [address], [place] [address] Dec, [facility] [address] [id number] [address] [place] [address], [place] [address] Dec, [facility] [address] [id number] [address] [place] [address], [place] [address] Dec, [facility] [address] [id number] [address] [place] [address], [place] [address] Nov, [facility] [address] [id number] [address] [place] [address], [place] [address] Nov, [facility] [address] [id number] [address] [place] [address], [place] [address] Nov, [facility] [address] [id number] [address] [place] [address], [place] [address] October, [facility] [address] [id number] [address] [place] [address], [place] [address] October, [facility] [address] [id number] [address] [place] [address], [place] [address] October, [facility] [address] [id number] [address] [place] [address], [place] [address] October, [facility] [address] [id number] [address] [place] [address], [place] [address] October, [facility] [address] [id number] [address] [place] [address], [place] [address] October, [facility] [address] [id number] [address] [place] [address], [place] [address] Aug, [facility] [address] [id number] [address] [place] [address], [place] [address] Mar, [facility] [address] [id number] [address] [place] [address], [place] [address] 16 Nov, 2010 [facility] [address] [id number] [address] [place] [address], [place] [address] May, [facility] [address] [id number] [address] [place] [address], [place] [address] May, [facility] [address] [id number] [address] [address] Apr, [facility] [address] [facility] [id number] [address] [place] [address] Mar, [facility] [address] [facility] [id number] [address] [address] Mar, IMMUNIZATIONS No Known Immunizations SOCIAL HISTORY Never Assessed REASON FOR VISIT BH f/u PLAN OF CARE Activity Details Follow Up Next available Reason: F/U VITAL SIGNS MEDICATIONS Unknown Medications RESULTS No Results PROCEDURES Procedure Date Ordered Result Body Site [facility] VISIT MENTAL HEALTH ESTAB PT Mar 11, 2018 Psychotherapy, patient &/family, 30 minutes, established pat ient Mar 11, 2018 INSTRUCTIONS MEDICATIONS ADMINISTERED No Known [...]
--- OUTSIDE RECORDS SUMMARY | 2019-06-19 05:56 | XMS REPORT ---
Author Author Sydnie SQUIRES Organization [facility] Address [address] [place] [address] Care Team Providers Care Service Technician Name Role Phone MIRIAN SQUIRES Unavailable PROBLEMS Type Condition ICD9-CM Code MHS01-KB Code Onset Dates Condition S tatus SNOMED Code Problem Hormone replacement therapy Z79.890 Ac tive 325649382 Problem Abnormal CT scan, head R93.0 Active 590470657 Problem Sensorineural hearing loss (SNHL) of both ears H90 .3 Active 020800051 Problem Bruising, spontaneous R23.3 Active 057839204 Problem Generalized anxiety disorder F41.1 A ctive 27322556 Problem Arthralgia of hip, unspecified laterality M25.559 Active 97549762 Problem Hematuria, unspecified type R31.9 Ac tive 06910651 Problem Night sweats R61 Active 6548811 0 Problem Hammer toe of right foot M20.41 Activ e 977049172 Problem Major depressive disorder, recurrent episode, moderate F33.1 Active 023652909 Problem Imbalance R26.89 Active 719617250 Problem Slow transit constipation K59.01 Acti ve 50726039 Problem Plantar wart of right foot B07.0 Act mitchell [id number] Problem Grief F43.20 Active 86937072 Problem Hyperlipidemia, unspecified hyperlipidemia type E7 8.5 Active 40172020 Problem Hypertension I10 Active 0294778 3 Problem Bladder spasm N32.89 Active 214058 006 Problem Fibromyalgia M79.7 Active 2841383 7 Problem Sciatica of left side M54.32 Active 33295055 Problem Acute left-sided low back pain with left-sided sciatica M54.42 Active 431712667 Problem Bipolar 1 disorder, mixed F31.60 Acti ve 03151144 Problem Ataxia R27.0 Active 15097987 Problem Other chronic pain G89.29 Active 8 5675051 Problem Gastritis without bleeding, unspecified chronicity, unspecified gastritis type K29.70 Active 873924018 Problem Hot flashes due to menopause N95.1 A ctive 069779627 Problem History of colon polyps Z86.010 Active 138425807 Problem Hearing loss, unspecified laterality H91.90 Active 40430430 Problem Allergic rhinitis J30.9 Active 61 016484 ALLERGIES Substance Reaction Event Type Date Status Morphine Sulfate Unknown Drug Allergy Feb, Active Iodine Unknown Drug Allergy Feb, Active Lyrica 75 Mg Capsule "felt weird" Non Drug Allergy Feb, Act mitchell ENCOUNTERS Encounter Location Date Diagnosis [facility] [address] [facility] [id number] [address] [place] [address] Apr, [facility] [address] [facility] [id number] [place] [address] Apr, [facility] [address] [place] [id number] [place] [address] Mar, [facility] [address] [place] [id number] [place] [address] Mar, [facility] [address] [place] [id number] [address] [place] [address] Mar, [facility] [address] [place] [id number] [place] [address] Mar, Slow transit constipation K5 9.01 ; Encounter for immunization Z23 and Generalized anxiety disorder F41.1 [facility] [address] [place] [id number] [address] [place] [address] 27 Feb, 2018 Bipolar 1 disorder, mixed F3 1.60 [facility] [address] [facility] [id number] [address] [place] [address] 26 Feb, 2018 Allergic rhinitis J30.9 [facility] [address] [facility] [id number] [address] [place] [address] 24 Feb, 2018 Bipolar 1 disorder, mixed F3 1.60 [facility] [address] [facility] [id number] [address] [place] [address] Feb, Bipolar 1 disorder, mixed F3 1.60 and Generalized anxiety disorder F41.1 [place] [address] [facility] [id number] [address] [place] [address] Feb, Bipolar 1 disorder, mixed F3 1.60 [place] [address] [place] [id number] [address] [place] [address] Feb, Allergic rhinitis J30.9 [place] [address] [place] [id number] [address] [place] [address] Feb, [place] [address] [facility] [id number] [address] [place] [address] Jan, Bipolar 1 disorder, mixed F3 1.60 [place] [address] [place] [id number] [address] [place] [address] Jan, Low back pain M54.5 ; Hyperl ipidemia, unspecified hyperlipidemia type E78.5 and Bipolar 1 disorder, mixed F31.60 [place] [address] [place] [id number] [address] [place] [address] Jan, Bipolar 1 disorder, mixed F3 1.60 [place] [address] [place] [id number] [address] [place] [address] Jan, Bipolar 1 disorder, mixed F3 1.60 [place] [address] [place] [id number] [address] [place] [address] Jan, Bipolar 1 disorder, mixed F3 1.60 [place] [address] [place] [id number] [address] [place] [address] Jan, Bipolar 1 disorder, mixed F3 1.60 [place] [address] [place] [id number] [address] [place] [address] Dec, Bipolar 1 disorder, mixed F3 1.60 ; Generalized anxiety disorder F41.1 and Other long-term (current) 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 Z79.899 [place] [address] [place] [id number] [address] [place] [address] Dec, Other long-term (current) dr bin therapy Z79.899 [place] [address] [facility] [id number] [address] [place] [address] Dec, Bipolar 1 disorder, mixed F3 1.60 [facility] [address] [facility] [id number] [address] [place] [address] Dec, Bipolar 1 disorder, mixed F3 1.60 [facility] [address] [facility] [id number] [address] [place] [address] Nov, Bipolar 1 disorder, mixed F3 1.60 [facility] [address] [facility] [id number] [address] [place] [address] Nov, Bipolar 1 disorder, mixed F3 1.60 [facility] [address] [facility] [id number] [address] [place] [address] Nov, Bipolar 1 disorder, mixed F3 1.60 [facility] [address] [facility] [id number] [address] [place] [address] Nov, Allergic rhinitis J30.9 [facility] [address] [facility] [id number] [address] [place] [address] Nov, Allergic rhinitis J30.9 [facility] [address] [facility] [id number] [address] [place] [address] Nov, [facility] [address] [facility] [id number] [address] [place] [address] Nov, Bipolar 1 disorder, mixed F3 1.60 [facility] [address] [facility] [id number] [address] [place] [address] Nov, Fibromyalgia M79.7 and Aller gic rhinitis J30.9 [facility] [address] [facility] [id number] [address] [place] [address] October, Bipolar 1 disorder, mixed F3 1.60 [facility] [address] [facility] [id number] [address] [place] [address] October, Acute nasopharyngitis J00 [facility] [address] [facility] [id number] [address] [place] [address] October, Bitten or stung by nonvenomo us insect and other nonvenomous arthropods, initial encounter W57.XXXA and Insect bite (nonvenomous) of abdominal wall, initial encounter S30.861A [facility] [address] [facility] [id number] [address] [place] [address] October, Insect bite (nonvenomous) of abdominal wall, initial encounter S30.861A ; Bitten or stung by nonvenomous insect and other nonvenomous arthropods, initial encounter W57.XXXA ; Allergic rhinitis J30.9 and Low back pain M54.5 [facility] [address] [facility] [id number] [address] [place] [address] October, Bipolar 1 disorder, mixed F3 1.60 [facility] [address] [facility] [id number] [address] [place] [address] October, [facility] [address] [facility] [id number] [address] [place] [address] October, [facility] [address] [facility] [id number] [address] [place] [address] October, Bipolar 1 disorder, mixed F3 1.60 [facility] [address] [facility] [id number] [address] [place] [address] Sep, Bipolar 1 disorder, mixed F3 1.60 [facility] [address] [facility] [id number] [address] [place] [address] Sep, Other chronic pain G89.29 [facility] [address] [id number] [address] [place] [phone] Sep, [facility] [address] [facility] [id number] [address] [place] [address] Sep, Bipolar 1 disorder, mixed F3 1.60 [facility] [address] [facility] [id number] [address] [place] [address] Sep, Allergic rhinitis J30.9 and Sciatica of left side M54.32 [facility] [address] [facility] [id number] [address] [place] [address] Sep, Bipolar 1 disorder, mixed F3 1.60 [facility] [address] [facility] [id number] [address] [place] [address] Sep, Bipolar 1 disorder, mixed F3 1.60 and Generalized anxiety disorder F41.1 [facility] [address] [facility] [id number] [address] [place] [address] Aug, [facility] [address] [facility] [id number] [address] [place] [address] Aug, Bipolar 1 disorder, mixed F3 1.60 [facility] [address] [facility] [id number] [address] [place] [address] Aug, Bipolar 1 disorder, mixed F3 1.60 [facility] [address] [facility] [id number] [address] [place] [address] Aug, [facility] [address] [facility] [id number] [address] [place] [address] Aug, Generalized anxiety disorder F41.1 [facility] [address] [facility] [id number] [address] [place] [address] Aug, Bipolar 1 disorder, mixed F3 1.60 [facility] [address] [facility] [id number] [address] [place] [address] Aug, Plantar wart of right foot B 07.0 [facility] [address] [facility] [id number] [address] [place] [address] Aug, Bipolar 1 disorder, mixed F3 1.60 [facility] [address] [facility] [id number] [address] [place] [address] Jul, Bipolar 1 disorder, mixed F3 1.60 [facility] [address] [facility] [id number] [address] [place] [address] Jul, [facility] [address] [place] [id number] [address] [place] [address] 14 Jul, 2017 Bipolar 1 disorder, mixed F3 1.60 [facility] [address] [facility] [id number] [address] [place] [phone] 09 Jul, 2017 Generalized anxiety disorder F41.1 [facility] [address] [facility] [id number] [address] [place] [phone] 07 Jul, 2017 Bipolar 1 disorder, mixed F3 1.60 [facility] [address] [place] [id number] [address] [place] [address] 07 Jul, 2017 Acute left-sided low back pa in with left-sided sciatica M54.42 [facility] [address] [facility] [id number] [address] [place] [address] Jul, Coccydynia M53.3 [facility] [address] [facility] [id number] [address] [place] [address] Jun, Bipolar 1 disorder, mixed F3 1.60 [facility] [address] [place] [id number] [address] [place] [address] Jun, Acute nasopharyngitis J00 [facility] [address] [place] [id number] [address] [place] [phone] Jun, Bipolar 1 disorder, mixed F3 1.60 [facility] [address] [place] [id number] [address] [place] [address] Jun, Fibromyalgia M79.7 [facility] [address] [place] [id number] [address] [place] [address] Jun, Bipolar 1 disorder, mixed F3 1.60 [facility] [address] [place] [id number] [address] [place] [address] Jun, Fibromyalgia M79.7 and Bipol ar 1 disorder, mixed F31.60 [facility] [address] [facility] [id number] [address] [place] [address] May, Bipolar 1 disorder, mixed F3 1.60 ; Generalized anxiety disorder F41.1 and Other long-term (current) 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 Z79.899 [place] [id number] [place] [id number] [address] [place] [address] May, Bipolar 1 disorder, mixed F3 1.60 [facility] [address] [address] 14 May, 2017 Cough R05 and Body aches R52 [facility] [address] [address] 10 May, 2017 Bladder spasm N32.89 and Acu te cystitis without hematuria N30.00 [place] [address] [address] 07 May, 2017 Bipolar 1 disorder, mixed F3 1.60 [place] [address] [address] 30 Apr, 2017 [place] [address] [address] Apr, Major depressive disorder, r ecurrent episode, moderate F33.1 and Encounter for immunization Z23 [place] [address] [address] Apr, Bipolar 1 disorder, mixed F3 1.60 [place] [address] [address] Apr, Bipolar 1 disorder, mixed F3 1.60 [place] [address] [address] 16 Apr, 2017 Bipolar 1 disorder, mixed F3 1.60 [place] [address] [address] 13 Apr, 2017 Yeast vaginitis B37.3 [place] [address] [address] 09 Apr, 2017 Bipolar 1 disorder, mixed F3 1.60 [facility] [address] [place] [id number] [address] [place] [address] 07 Apr, [address]03[address] for immunization Z23 [facility] [address] [place] [address] Apr, Bipolar 1 disorder, mixed F3 1.60 [place] [address] [place] [id number] [place] [address] Mar, Bipolar 1 disorder, mixed F3 1.60 [place] [address] Mar, Bipolar 1 disorder, mixed F3 1.60 [place] [address] Mar, Imbalance R26.89 [address] for immunization Z23 [place] [address] [place] [address] Mar, Generalized anxiety disorder F41.1 [place] [address] [place] [address] Mar, Bipolar 1 disorder, mixed F3 1.60 [place] [address] [address] Mar, Generalized anxiety disorder F41.1 [place] [address] [place] [address] Mar, Bipolar 1 disorder, mixed F3 1.60 [place] [address] [place] [address] Mar, Bipolar 1 disorder, mixed F3 1.60 [place] [address] [place] [id number] [address] [place] [address] Feb, Bipolar 1 disorder, mixed F3 1.60 [place] [address] [place] [id number] [address] [place], [place] [address] Feb, Bipolar 1 disorder, mixed F3 1.60 and Generalized anxiety disorder F41.1 [place] [address] [place] [id number] [address] [place] [address] Feb, Gastritis without bleeding, unspecified chronicity, unspecified gastritis type K29.70 ; Hammer toe of right foot M20.41 and Other viral warts B07.8 [place] [address] [facility] [id number] [address] [place] [address] 20 Feb, 2017 Bipolar 1 disorder, mixed F3 1.60 [place] [address] [place] [id number] [address] [place] [address] 13 Feb, 2017 Bipolar 1 disorder, mixed F3 1.60 [place] [address] [place] [id number] [address] [place] [address] 05 Feb, 2017 Bipolar 1 disorder, mixed F3 1.60 [place] [address] [place] [id number] [address] [place] [address] 31 Jan, 2017 Encounter for screening mamm ogram for breast cancer Z12.31 ; Other viral warts B07.8 and Allergic rhinitis J30.9 [place] [address] [place] [id number] [address] [place] [address] Jan, Bipolar 1 disorder, mixed F3 1.60 [place] [address] [facility] [id number] [address] [place] [address] Jan, Bipolar 1 disorder, mixed F3 1.60 [place] [address] [place] [id number] [address] [place] [address] Jan, [place] [address] [place] [id number] [address] [place] [address] Jan, Bipolar 1 disorder, mixed F3 1.60 [place] [address] [facility] [id number] [address] [place] [address] Jan, Bipolar 1 disorder, mixed F3 1.60 [place] [address] [facility] [id number] [address] [place] [address] Jan, Allergic rhinitis J30.9 ; He maturia R31.9 and Colon cancer screening Z12.11 [place] [address] [place] [id number] [address] [place] [address] Dec, Bipolar 1 disorder, mixed F3 1.60 [facility] [address] [id number] [address] [place] [address] Dec, Bipolar 1 disorder, mixed F3 1.60 ; Generalized anxiety disorder F41.1 and Other long-term (current) 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 Z79.899 [facility] [address] [facility] [id number] [address] [place] [address] Dec, Bipolar 1 disorder, mixed F3 1.60 [facility] [address] [id number] [address] [place] [address] Dec, Bipolar 1 disorder, mixed F3 1.60 [facility] [address] [facility] [id number] [address] [place] [address] Dec, Bipolar 1 disorder, mixed F3 1.60 [facility] [address] [facility] [id number] [address] [place] [address] Dec, Low back pain M54.5 and Recu rrent urinary tract infection N39.0 [facility] [address] [id number] [address] [place] [address] Nov, Bipolar 1 disorder, mixed F3 1.60 [facility] [address] [facility] [id number] [address] [place] [address] Nov, Bipolar 1 disorder, mixed F3 1.60 [facility] [address] [facility] [id number] [address] [place] [address] Nov, Bipolar 1 disorder, mixed F3 1.60 [facility] [address] [id number] [address] [place] [address] Nov, Bipolar 1 disorder, mixed F3 1.60 [facility] [address] [facility] [id number] [address] [place] [address] Nov, [facility] [address] [facility] [id number] [address] [place] [address] Nov, Anesthesia of skin R20.0 ; F requent UTI N39.0 ; Tobacco abuse Z72.0 and Colon cancer screening Z12.11 [place] [address] [place] [id number] [address] [place] [address] Nov, Bipolar 1 disorder, mixed F3 1.60 [place] [address] [address] October, Bipolar 1 disorder, mixed F3 1.60 [place] [address] [address] October, Bipolar 1 disorder, mixed F3 1.60 [place] [address] [address] October, Bipolar 1 disorder, mixed F3 1.60 [place] [address] [address] October, Bipolar 1 disorder, mixed F3 1.60 [place] [address] [address] October, Bipolar 1 disorder, mixed F3 1.60 [place] [address] [address] October, Cervicalgia M54.2 and Bipola r 1 disorder, mixed F31.60 [place] [address] [place] [id number] [address] [place] [address] October, Hypertension I10 ; Hyperlipi demia, unspecified hyperlipidemia type E78.5 and Family history of thyroid disease Z83.49 [place] [address] [place] [id number] [address] [place] [address] October, [place] [address] [place] [id number] [place] [address] October, Hypertension I10 ; Hyperlipi demia, unspecified hyperlipidemia type E78.5 and Family history of thyroid problem Z83.49 [place] [address] [place] [id number] [address] [place] [address] October, Bipolar 1 disorder, mixed F3 1.60 [place] [address] [place] [address] Sep, Bipolar 1 disorder, mixed F3 1.60 [facility] [address] [place], [place] [phone] Sep, Bipolar 1 disorder, mixed F3 1.60 [facility] [address] [place] [id number] [place] [address] Sep, Bipolar 1 disorder, mixed F3 1.60 [facility] [address] [address] Sep, History of colon polyps Z86. 010 and Hematochezia K92.1 [place] [address] [address] Sep, Major depressive disorder, r ecurrent episode, moderate F33.1 [place] [address] [address] Sep, Bipolar 1 disorder, mixed F3 1.60 [place] [id number] [place] [id number] [address] [place] [address] Aug, Hot flashes due to menopause N95.1 [facility] [address] [place] [id number] [address] [place] [address] Aug, Bipolar 1 disorder, mixed F3 1.60 [place] [address] [place] [id number] [address] [place] [address] Aug, [facility] [address] [place] [id number] [address] [place] [address] Aug, Bipolar 1 disorder, mixed F3 1.60 [facility] [address] [place] [address] Aug, Bipolar 1 disorder, mixed F3 1.60 [facility] [address] [place] [id number] [address] [place] [address] Aug, Hot flashes due to menopause N95.1 ; Cervicalgia M54.2 and Ataxia R27.0 [place] [address] [id number] Jul, Bipolar 1 disorder, mixed F3 1.60 [place] [address] Jul, Bipolar 1 disorder, mixed F3 1.60 [place] [address] Jul, Bipolar 1 disorder, mixed F3 1.60 [place] [address] Jul, Bipolar 1 disorder, mixed F3 1.60 [place] [address] Jul, Bipolar 1 disorder, mixed F3 1.60 [place] [address] [address] Jul, Cervicalgia M54.2 ; Tremor R 25.1 ; Hearing abnormally acute, unspecified laterality H93.239 ; Alopecia L65.9 ; Encounter for immunization Z23 and Family history of thyroid disease Z83.49 [place] [address] [address] Jul, Bipolar 1 disorder, mixed F3 1.60 [place] [address] [id number] Jun, [place] [address] [place] [id number] Jun, Hearing disorder, unspecifie d laterality H93.299 [place] [address] [place] [address] Jun, Bipolar 1 disorder, mixed F3 1.60 [place] [address] [address] Jun, Bipolar 1 disorder, mixed F3 1.60 [place] [address] [id number] [address] [place] [id number] Jun, Allergic rhinitis J30.9 [facility] [address] [id number] [address] [place] [id number] Jun, Bipolar 1 disorder, mixed F3 1.60 [facility] [address] [id number] [address] [place] [id number] Jun, Bipolar 1 disorder, mixed F3 1.60 [facility] [address] [id number] [address] [place] [id number] Jun, Allergic rhinitis J30.9 [facility] [address] [id number] [address] [place] [id number] Jun, Allergic rhinitis J30.9 [facility] [address] [id number] [address] [place] [phone] Jun, Bipolar 1 disorder, mixed F3 1.60 [facility] [address] [id number] [address] [place] [address] May, Bipolar 1 disorder, mixed F3 1.60 [facility] [address] [id number] [address] [place] [phone] May, Bipolar 1 disorder, mixed F3 1.60 [facility] [address] [facility] [id number] [address] [place] [address] May, [facility] [address] [id number] [address] [place] [address] May, Bipolar 1 disorder, mixed F3 1.60 [facility] [address] [id number] [address] [place] [phone] May, Bipolar 1 disorder, mixed F3 1.60 [facility] [address] [facility] [id number] [address] [place] [phone] May, [facility] [address] [facility] [id number] [address] [place] [address] May, [facility] [address] [place] [id number] [address] [place] [address] May, [facility] [address] [id number] [address] [place] [address] May, Abdominal pain, unspecified location R10.9 [facility] [address] [id number] [address] [place] [address] May, [facility] [address] [place] [id number] [place] [address] Apr, Hematuria R31.9 ; Ataxia R27 .0 and Hearing loss, unspecified laterality H91.90 [facility] [address] [place] [id number] [place] [address] Apr, Bipolar 1 disorder, mixed F3 1.60 [facility] [address] [id number] [address] [place] [address] Apr, Acute effusion of both middl e ears H65.193 [facility] [address] [address] Apr, Hematuria R31.9 and Pyelonep hritis N12 [facility] [address] [place] [id number] [address] [place] [phone] Apr, [facility] [address] [address] [id number] [address] [place] [address] Mar, Bipolar 1 disorder, mixed F3 1.60 [facility] [address] [id number] [address] [place] [phone] Mar, [facility] [address] [address] [id number] [address] [place] [address] Mar, Bipolar 1 disorder, mixed F3 1.60 [facility] [address] [id number] [address] [place] [phone] Mar, Bipolar 1 disorder, mixed F3 1.60 [facility] [address] [place] [id number] [address] [place] [address] Mar, Encounter for immunization Z 23 and Gastritis without bleeding, unspecified chronicity, unspecified gastritis type K29.70 [place] [address] [place] [address] 05 Mar, 2016 Bipolar 1 disorder, mixed F3 1.60 and Grief F43.20 [facility] [address] [address] Mar, Gastritis without bleeding, unspecified chronicity, unspecified gastritis type K29.70 [place] [address] [address] Mar, Bipolar 1 disorder, mixed F3 1.60 [place] [address] [place] [address] Mar, Gastritis without bleeding, unspecified chronicity, unspecified gastritis type K29.70 [place] [address] [address] Mar, [place] [address] [address] Feb, Bipolar 1 disorder, mixed F3 1.60 [place] [address] [address] Feb, Bipolar 1 disorder, mixed F3 1.60 and Grief F43.20 [place] [address] [address] Feb, Gastritis without bleeding, unspecified chronicity, unspecified gastritis type K29.70 [place] [address] [address] 14 Feb, 2016 Bipolar 1 disorder, mixed F3 1.60 [facility] [address] [address] 09 Feb, 2016 Gastroesophageal reflux dise ase, esophagitis presence not specified K21.9 [place] [address] [address] Jan, Bipolar 1 disorder, mixed F3 1.60 [facility] [address] [facility] [id number] [address] [place] [address] Jan, Bipolar 1 disorder, mixed F3 1.60 and Unsteady gait R26.81 [facility] [address] [facility] [id number] [address] [place] [phone] Jan, Bipolar 1 disorder, mixed F3 1.60 [place] [address] [facility] [id number] [address] [place] [address] Jan, Bipolar 1 disorder, mixed F3 1.60 and Other joint terminal attack controller (current) drug therapy Z79.899 [place] [address] [facility] [id number] [address] [place] [address] Jan, Bipolar 1 disorder, mixed F3 1.60 [place] [address] [place] [id number] [address] [place] [address] Jan, Bipolar 1 disorder, mixed F3 1.60 [place] [address] [facility] [id number] [address] [place] [phone] Jan, Bipolar 1 disorder, mixed F3 1.60 ; Grief F43.20 and Other joint terminal attack controller (current) drug therapy Z79.899 [place] [id number] [facility] [id number] [address] [place] [address] Jan, Bipolar 1 disorder, mixed F3 1.60 [place] [id number] [facility] [id number] [address] [place] [address] Dec, [place] [address] [facility] [id number] [address] [place] [address] Dec, Bipolar 1 disorder, mixed F3 1.60 ; Vitamin D deficiency, unspecified E55.9 ; H/O allergic rhinitis Z87.09 ; Other chronic pain G89.29 and Dorsalgia, unspecified M54.9 [facility] [address] [facility] [id number] [address] [place] [address] Dec, [place] [address] [facility] [id number] [address] [place] [address] Dec, Bipolar 1 disorder, mixed F3 1.60 [facility] [address] [facility] [id number] [address] [place] [address] Dec, Major depressive disorder, r ecurrent episode, moderate F33.1 [facility] [address] [facility] [id number] [address] [place] [address] Dec, Major depressive disorder, r ecurrent episode, moderate F33.1 [facility] [address] [facility] [id number] [address] [place] [address] Nov, [place] [address] [facility] [id number] [address] [place] [address] Nov, Bipolar 1 disorder, mixed F3 1.60 [place] [address] [facility] [id number] [address] [place] [address] Nov, Major depressive disorder, r ecurrent episode, moderate F33.1 [place] [id number] [facility] [id number] [address] [place] [address] Nov, Cervicalgia M54.2 ; Arthralg ia of hip, unspecified laterality M25.559 ; Allergic rhinitis J30.9 and Hormone replacement therapy Z79.890 [facility] [address] [facility] [id number] [address] [place] [address] Nov, Other seasonal allergic rhin itis J30.2 [facility] [address] [facility] [id number] [address] [place] [address] October, Major depressive disorder, r ecurrent episode, moderate F33.1 [facility] [address] [facility] [id number] [address] [place] [address] October, Major depressive disorder, r ecurrent episode, moderate F33.1 and Arthralgia of hip, unspecified laterality M25.559 [facility] [address] [facility] [id number] [address] [place] [address] October, Grief F43.20 ; Hypertension I10 ; Hyperlipidemia, unspecified hyperlipidemia type E78.5 ; Other chronic pain G89.29 and Allergic rhinitis, unspecified allergic rhinitis type J30.9 [place] [address] [address] October, Major depressive disorder, r ecurrent episode, moderate F33.1 [place] [id number] [place] [address] Sep, Major depressive disorder, r ecurrent episode, moderate F33.1 [place] [address] [place] [address] Sep, [place] [address] [address] Sep, Major depressive disorder, r ecurrent episode, moderate F33.1 [place] [address] [address] Sep, Grief F43.20 [place] [address] [address] Aug, Major depressive disorder, r ecurrent episode, moderate F33.1 [place] [address] [address] Aug, Bipolar 1 disorder, mixed F3 1.60 [place] [address] [address] Aug, Allergic rhinitis J30.9 ; Ce rvicalgia M54.2 and Low back pain M54.5 [place] [id number] [place] [address] Aug, Major depressive disorder, r ecurrent episode, moderate F33.1 [facility] [address] [place] [id number] [address] [place] [address] Aug, Sinusitis J32.9 and Tobacco 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 [place] [address] [address] Aug, [facility] [address] [id number] [address] [place] [address] Aug, Depressive disorder, not els ewhere classified F32.9 ; Hormone replacement therapy Z79.[address] scan, head R93.0 [facility] [address] [id number] [address] [place] [address] Aug, Major depressive disorder, r ecurrent episode, moderate F33.1 [facility] [address] [id number] [address] [place] [address] Jul, Major depressive disorder, r ecurrent episode, moderate F33.1 [facility] [address] [id number] [address] [place] [address] Jul, Abdominal pain R10.9 and Hyp ertension I10 [facility] [address] [id number] [address] [place] [address] Jul, [facility] [address] [id number] [address] [place] [address] Jul, Major depressive disorder, r ecurrent episode, moderate F33.1 [facility] [address] [id number] [address] [place] [address] Jul, [facility] [address] [facility] [id number] [address] [place] [address] Jul, [facility] [address] [id number] [address] [place] [address] Jun, [facility] [address] [id number] [address] [place] [address] Jun, Depressive disorder, not els ewhere classified F32.9 [facility] [address] [facility] [id number] [address] [place] [address] Jun, [facility] [address] [facility] [id number] [address] [place] [address] Jun, [facility] [address] [id number] [address] [place] [phone] Jun, Arthralgia of hip, unspecifi ed laterality M25.559 ; Bruising, spontaneous R23.3 and Night sweats R61 [facility] [address] [id number] [address] [place] [address] Jun, [facility] [address] [id number] [address] [place] [address] Jun, [facility] [address] [id number] [address] [place] [address] May, [facility] [address] [id number] [address] [place] [address] May, Myalgia M79.1 and Screening, lipid Z13.220 [facility] [address] [id number] [address] [place] [address] Apr, Status post cervical spinal fusion Z98.1 ; Fibromyalgia M79.7 and Unsteady gait R26.81 [facility] [address] [id number] [address] [place] [address] Nov, [facility] [address] [id number] [address] [place] [phone] Nov, [facility] [address] [id number] [address] [place] [address] October, [facility] [address] [id number] [address] [place] [address] October, [facility] [address] [id number] [address] [place] [address] October, [facility] [address] [id number] [address] [place] [address] October, [facility] [address] [id number] [address] [place] [address] October, [facility] [address] [id number] [address] [place] [address] October, Dysuria 788.1 ; Nausea 787.0 2 and Urinary tract infection 599.0 [facility] [address] [id number] [address] [place] [address] 14 Sep, 2014 [facility] [address] [id number] [address] [place] [address] Sep, [facility] [address] [id number] [address] [place] [address] Aug, [facility] [address] [id number] [address] [place] [phone] Aug, [facility] [address] [id number] [address] [place] [address] 24 Aug, 2014 [facility] [address] [id number] [address] [place] [id number] 24 Aug, 2014 [facility] [address] [id number] [address] [place] [address] Aug, [facility] [address] [id number] [address] [place] [address] Aug, [facility] [address] [id number] [address] [place] [address] Aug, [facility] [address] [id number] [address] [place] [id number] 19 Aug, 2014 [facility] [address] [id number] [address] [place] [address] 19 Aug, 2014 [facility] [address] [id number] [address] [place] [id number] 18 Aug, 2014 [facility] [address] [id number] [address] [place] [id number] 18 Aug, 2014 [facility] [address] [id number] [address] [place] [id number] 13 Aug, 2014 [facility] [address] [id number] [address] [place] [phone] Aug, [facility] [address] [id number] [address] [place] [address], [place] [address] Aug, [facility] [place] [facility] [address] [id number] [address] [place] [address], [place] [address] Aug, [facility] [address] [id number] [address] [place] [address], [place] [address] Aug, [facility] [place] [facility] [address] [id number] [address] [place] [address], [place] [address] Aug, [facility] [address] [id number] [address] [place] [address], [place] [address] Aug, [facility] [address] [id number] [address] [place] [address], [place] [address] Aug, [facility] [address] [id number] [address] [place] [address], [place] [address] Aug, [facility] [address] [id number] [address] [place] [phone] Aug, [facility] [address] [id number] [address] [place] [address], [place] [address] Aug, [facility] [address] [id number] [address] [place] [id number] Jul, [facility] [place] [facility] [address] [id number] [address] [place] [address], [place] [address] Jul, 2014 [facility] [place] [facility] [address] [id number] [address] [place] [phone] Jul, [facility] [place] [facility] [address] [id number] [address] [place] [address], [place] [id number] Jul, [facility] [place] [facility] [address] [id number] [address] [place] [id number] Jul, [facility] [place] [facility] [address] [id number] [address] [place] [id number] Jul, [facility] [place] [facility] [address] [id number] [address] [place] [address], [place] [address] Jul, 2014 [facility] [place] [facility] [address] [id number] [address] [place] [address], [place] [id number] Jul, 2014 [facility] [address] [id number] [address] [place] [address], [place] [address] Jul, 2014 [facility] [place] [facility] [address] [id number] [address] [place] [address], [place] [id number] Jul, 2014 [facility] [address] [id number] [address] [place] [address], [place] [address] Jul, [facility] [place] [facility] [address] [id number] [address] [place] [address], [place] [address] Jul, 2014 [facility] [address] [id number] [address] [place] [address], [place] [address] Jul, [facility] [address] [id number] [address] [place] [address], [place] [address] Jul, [facility] [address] [id number] [address] [place] [address], [place] [address] Jun, [facility] [address] [id number] [address] [place] [address], [place] [address] Jun, [facility] [address] [id number] [address] [place] [address], [place] [address] Jun, [facility] [place] [facility] [address] [id number] [address] [place] [phone] Jun, [facility] [place] [facility] [address] [id number] [address] [place] [address], [place] [address] Jun, [facility] [place] [facility] [address] [id number] [address] [place] [address], [place] [address] Jun, [facility] [place] [facility] [address] [id number] [address] [place] [address], [place] [address] May, [facility] [place] [facility] [address] [id number] [address] [place] [address], [place] [address] May, [facility] [address] [id number] [address] [place] [address], [place] [address] May, [facility] [place] [facility] [address] [id number] [address] [place] [address], [place] [id number] May, [facility] [address] [id number] [address] [place] [address], [place] [address] May, [facility] [place] [facility] [address] [id number] [address] [place] [address], [place] [address] May, [facility] [address] [id number] [address] [place] [address], [place] [address] Apr, [facility] [place] [facility] [address] [id number] [address] [place] [address], [place] [address] Apr, [facility] [address] [id number] [address] [place] [address], [place] [address] Apr, [facility] [place] [facility] [address] [id number] [address] [place] [address], [place] [address] Apr, [facility] [place] [facility] [address] [id number] [address] [place] [address], [place] [address] Apr, [facility] [address] [id number] [address] [place] [address], [place] [address] Apr, [facility] [place] [facility] [address] [id number] [address] [place] [address], [place] [id number] Mar, [facility] [place] [facility] [address] [id number] [address] [place] [address], [place] [id number] Mar, [facility] [place] [facility] [address] [id number] [address] [place] [address], [place] [id number] Mar, [facility] [place] [facility] [address] [id number] [address] [place] [address], [place] [address] Mar, [facility] [place] [facility] [address] [id number] [address] [place] [address], [place] [id number] Mar, [facility] [place] [facility] [address] [id number] [address] [place] [address], [place] [address] Mar, [facility] [place] [facility] [address] [id number] [address] [place] [address], [place] [id number] Mar, [facility] [place] [facility] [address] [id number] [address] [place] [address], [place] [address] Mar, [facility] [place] [facility] [address] [id number] [address] [place] [address], [place] [address] Mar, [facility] [address] [id number] [address] [place] [address], [place] [id number] Mar, [facility] [address] [id number] [address] [place] [address], [place] [address] Mar, [facility] [address] [id number] [address] [place] [address], [place] [id number] Mar, [facility] [address] [id number] [address] [place] [address], [place] [id number] 30 Feb, 2013 [facility] [address] [id number] [address] [place] [address], [place] [id number] 29 Feb, 2014 [facility] [place] [facility] [address] [id number] [address] [place] [address], [place] [id number] 29 Feb, 2013 [facility] [place] [facility] [address] [id number] [address] [place] [address], [place] [id number] 23 Feb, 2013 [facility] [place] [facility] [address] [id number] [address] [place] [address], [place] [id number] 23 Feb, 2013 [facility] [place] [facility] [address] [id number] [address] [place] [address], [place] [id number] 08 Feb, 2014 [facility] [place] [facility] [address] [id number] [address] [place] [address], [place] [id number] 08 Feb, 2013 [facility] [place] [facility] [address] [id number] [address] [place] [address], [place] [id number] Jan, [facility] [place] [facility] [address] [id number] [address] [place] [address], [place] [id number] Jan, [facility] [address] [id number] [facility] [place] [id number] Jan, [facility] [place] [facility] [address] [id number] [address] [place] [address], [place] [id number] Dec, [facility] [address] [id number] [address] [place] [address], [place] [id number] Dec, [facility] [place] [facility] [address] [id number] [address] [place] [address], [place] [id number] Dec, [facility] [address] [id number] [address] [place] [address], [place] [id number] Dec, [facility] [address] [id number] [address] [place] [address], [place] [id number] Sep, [facility] [address] [id number] [address] [place] [address], [place] [id number] Sep, [facility] [place] [facility] [address] [id number] [address] [place] [address], [place] [id number] Sep, [facility] [place] [facility] [address] [id number] [address] [place] [address], [place] [id number] Sep, [facility] [place] [facility] [address] [id number] [address] [place] [address], [place] [id number] Sep, [facility] [place] [facility] [address] [id number] [address] [place] [address], [place] [id number] Sep, [facility] [place] [facility] [address] [id number] [address] [place] [address], [place] [id number] Sep, [facility] [place] [facility] [address] [id number] [address] [place] [address], [place] [id number] Sep, [facility] [place] [facility] [address] [id number] [address] [place] [address], [place] [id number] Aug, [facility] [place] [facility] [address] [id number] [address] [place] [address], [place] [id number] Aug, [facility] [place] [facility] [address] [id number] [address] [place] [address], [place] [id number] May, [facility] [address] [id number] [address] [place] [address], [place] [id number] May, [facility] [address] [id number] [address] [place] [address], [place] [id number] Apr, [facility] [address] [id number] [address] [place] [address], [place] [id number] Apr, [facility] [address] [id number] [address] [place] [address], [place] [id number] Apr, [facility] [address] [id number] [address] [place] [address], [place] [id number] Apr, [facility] [address] [id number] [address] [place] [address], [place] [id number] Apr, [facility] [address] [id number] [address] [place] [address], [place] [id number] Apr, [facility] [address] [id number] [address] [place] [address], [place] [id number] May, [facility] [address] [id number] [address] [place] [address], [place] [id number] 18 May, 2012 [facility] [address] [id number] [address] [place] [address], [place] [id number] 15 May, 2012 [facility] [address] [id number] [address] [place] [address], [place] [id number] 15 May, 2012 [facility] [address] [id number] [address] [place] [address], [place] [id number] 13 May, 2012 [facility] [address] [id number] [address] [place] [address], [place] [id number] 13 May, 2012 [facility] [address] [id number] [address] [place] [address], [place] [id number] 13 Apr, 2012 [facility] [address] [id number] [address] [place] [address], [place] [id number] Apr, [facility] [place] [facility] [address] [id number] [address] [place] [address], [place] [id number] 08 Apr, 2012 [facility] [place] [facility] [address] [id number] [address] [place] [address], [place] [id number] Apr, [facility] [place] [facility] [address] [id number] [address] [place] [address], [place] [id number] Apr, [facility] [place] [facility] [address] [id number] [address] [place] [address], [place] [id number] Apr, [facility] [address] [id number] [address] [place] [address], [place] [id number] Apr, [facility] [place] [facility] [address] [id number] [address] [place] [address], [place] [id number] Apr, [facility] [place] [facility] [address] [id number] [address] [place] [address], [place] [id number] Apr, [facility] [place] [facility] [address] [id number] [address] [place] [id number] Apr, [facility] [place] [facility] [address] [id number] [address] [place] [address], [place] [id number] Mar, [facility] [place] [facility] [address] [id number] [address] [place] [id number] Mar, [facility] [place] [facility] [address] [id number] [address] [place] [id number] Mar, [facility] [place] [facility] [address] [id number] [address] [place] [id number] Mar, [facility] [place] [facility] [address] [id number] [address] [place] [id number] Mar, [facility] [place] [facility] [address] [id number] [address] [place] [id number] Mar, [facility] [place] [facility] [address] [id number] [address] [place] [id number] Mar, [facility] [place] [facility] [address] [id number] [address] [place] [id number] Mar, [facility] [address] [id number] [address] [place] [address], [place] [id number] Mar, [facility] [address] [id number] [address] [place] [address], [place] [id number] Feb, [facility] [address] [id number] [address] [place] [address], [place] [id number] 16 Feb, 2012 [facility] [address] [id number] [address] [place] [address], [place] [id number] Feb, [facility] [address] [id number] [address] [place] [address], [place] [id number] Jan, [facility] [address] [id number] [address] [place] [address], [place] [id number] Jan, [facility] [address] [id number] [address] [place] [address], [place] [id number] Jan, [facility] [address] [id number] [address] [place] [address], [place] [id number] Jan, [facility] [address] [id number] [address] [place] [address], [place] [id number] Jan, [facility] [address] [id number] [address] [place] [address], [place] [id number] Jan, [facility] [address] [id number] [address] [place] [address], [place] [id number] Jan, [facility] [address] [id number] [address] [place] [address], [place] [id number] Jan, [facility] [address] [id number] [address] [place] [address], [place] [id number] Jan, [facility] [address] [id number] [address] [place] [address], [place] [id number] Jan, [facility] [address] [id number] [address] [place] [address], [place] [id number] Dec, [facility] [address] [id number] [address] [place] [address], [place] [id number] Dec, [facility] [address] [id number] [address] [place] [address], [place] [id number] Dec, [facility] [address] [id number] [address] [place] [address], [place] [id number] Dec, [facility] [address] [id number] [address] [place] [address], [place] [id number] Nov, [facility] [address] [id number] [address] [place] [address], [place] [id number] Nov, [facility] [address] [id number] [address] [place] [address], [place] [id number] Nov, [facility] [address] [id number] [address] [place] [address], [place] [id number] October, [facility] [address] [id number] [address] [place] [address], [place] [id number] October, [facility] [address] [id number] [address] [place] [address], [place] [id number] October, [facility] [address] [id number] [address] [place] [address], [place] [id number] October, [facility] [address] [id number] [address] [place] [address], [place] [id number] October, [facility] [address] [id number] [address] [place] [address], [place] [id number] October, [facility] [address] [id number] [address] [place] [address], [place] [id number] Aug, [facility] [place] [facility] [address] [id number] [address] [place] [address], [place] [id number] Mar, [facility] [address] [id number] [address] [place] [address], [place] [id number] Nov, [facility] [address] [id number] [address] [place] [address] [address] May, [facility] [address] [facility] [id number] [address] [place] [id number] May, [facility] [address] [facility] [id number] [address] [place] [id number] Apr, [facility] [address] [facility] [id number] [address] [place] [id number] Mar, [facility] [address] [facility] [id number] [address] [place] [id number] Mar, IMMUNIZATIONS No Known Immunizations SOCIAL HISTORY Never Assessed REASON FOR VISIT f/u- AB/MA PLAN OF CARE Activity Details Follow Up 2 Months Reason: f/u VITAL SIGNS Height 64 in 2018-03-07 Weight 163.9 lbs 2018-03-07 Heart Rate 104 bpm 2018-03-07 Respiratory Rate 20 2018-03-07 BMI 28.13 kg/m2 2018-03-07 Blood pressure systolic 128 mmHg 2018-03-07 Blood pressure diastolic 60 mmHg 2018-03-07 MEDICATIONS Medication Instructions Dosage Frequency Start Date End Date Duration S tatus Orally Once a day 1 capsule 24h Act mitchell Magnesium 500 MG Orally Once a day 1 tablet with a meal 24h Dec, Active Vagifem 10 MCG Vaginal Two times a Week 1 tablet 84 Active Nitrofurantoin Monohyd Macro 100 mg Orally Once a day 1 capsule with food 24h Active Fetzima 120 mg Orally Once a day TAKE 1 CAPSULE BY MOUTH DAILY 24h Active Lidocaine-Prilocaine 2.5-2.5 % Active Pantoprazole Sodium 20 MG TAKE 1 TABLET BY MOUTH ONCE DAILY 90 Active Benadryl 2 tablets Not-Taking Estradiol 2 MG Orally Once a day 1 tablet 24h Active Montelukast Sodium 10 mg Orally Once a day 1 tablet in the evening 24h October, 90 days Not-Taking Cetirizine HCl 10 MG Orally Once a day 1 tablet 24h Jan, 30 days Not-Taking Probiotic Acidophilus No t-Taking Beclomethasone Dipropionate 80 MCG/ACT Nasally Once a day 2 puffs in each nostril 24h Sep, 30 day(s) Active C77-Jnrizc 1 MG Not-Taki ng Melatonin 5 mg Orally Once a day 2 tablets 24h May, Not-Taking Vitamin D3 2000 UNIT Orally Once a day as directed 24h 28 Dec, 2015 Active Oxybutynin Chloride ER 10 MG Orally Once a day 1 tablet 24h October, 30 day(s) Not-Taking Mucinex 600 MG Orally every 12 hrs 1 tablet as needed 12h Active Voltaren 1 % Transdermal 4 times a day on neck Active Neurontin 300 MG Orally Once a day 1 capsule 24h Not-Taking Ibuprofen 600 MG Orally 4 times a day 1 tablet with food or milk as needed 6h Jan, May, 30 days Active HydrOXYzine HCl 10 mg Orally 3 times a day as needed 1 tablet Feb, 30 days Active Depakote ER 500 mg Orally at bedtime 2 tabs Active Flunisolide 25 MCG/ACT (0.025%) Nasally Twice a day 2 sprays in each nostril 12h Sep, 30 day(s) Not-Taking RESULTS No Results PROCEDURES Procedure Date Ordered Result Body Site [facility] VISIT ESTABLISHED PATIENT Mar 07, 2018 INSTRUCTIONS MEDICATIONS ADMINISTERED No Known Medications MEDICAL (GENERAL) HISTORY Type Description Date Medical History Severe spinal stenosis [facility] cervical spine CT and MRI done [...]
--- OUTSIDE RECORDS SUMMARY | 2019-06-19 05:56 | XMS REPORT ---
Author Author Sydnie HANCOCK [facility] Address [address] [place] [address] Care Team Providers Care Adjuster Arbitrator Name Role Phone NAHOMY HANCOCK Unavailable PROBLEMS Type Condition ICD9-CM Code XWL92-[id number] Code Onset Dates Condition S tatus SNOMED Code Problem Hormone replacement therapy Z79.890 Ac tive 011634065 Problem Abnormal CT scan, head R93.0 Active 146470316 Problem Sensorineural hearing loss (SNHL) of both ears H90 .3 Active 371615315 Problem Bruising, spontaneous R23.3 Active 016860764 Problem Generalized anxiety disorder F41.1 A ctive 22395941 Problem Arthralgia of hip, unspecified laterality M25.559 Active 69583933 Problem Hematuria, unspecified type R31.9 Ac tive 48061773 Problem Night sweats R61 Active 7519575 0 Problem Hammer toe of right foot M20.41 Activ e 344119980 Problem Major depressive disorder, recurrent episode, moderate F33.1 Active 038862189 Problem Imbalance R26.89 Active 356895249 Problem Slow transit constipation K59.01 Acti ve 16006445 Problem Plantar wart of right foot B07.0 Act mitchell [id number] Problem Grief F43.20 Active 34222761 Problem Hyperlipidemia, unspecified hyperlipidemia type E7 8.5 Active 27504363 Problem Hypertension I10 Active 2638336 3 Problem Bladder spasm N32.89 Active 850412 006 Problem Fibromyalgia M79.7 Active 6089773 7 Problem Sciatica of left side M54.32 Active 47053635 Problem Acute left-sided low back pain with left-sided sciatica M54.42 Active 020170495 Problem Bipolar 1 disorder, mixed F31.60 Acti ve 86679070 Problem Ataxia R27.0 Active 97853634 Problem Other chronic pain G89.29 Active 8 0592740 Problem Gastritis without bleeding, unspecified chronicity, unspecified gastritis type K29.70 Active 777729345 Problem Hot flashes due to menopause N95.1 A ctive 928870719 Problem History of colon polyps Z86.010 Active 192626722 Problem Hearing loss, unspecified laterality H91.90 Active 63930577 Problem Allergic rhinitis J30.9 Active 61 464560 ALLERGIES No Information ENCOUNTERS Encounter Location Date Diagnosis [place] [id number] [address] Apr, [place] [address] [address] Apr, [place] [address] [address] Mar, [place] [address] [address] Mar, [place] [address] [address] 16 Mar, 2018 [place] [address] [address] [place] [id number] [place] [address] 03 Mar, 2018 Slow transit constipation K5 9.01 ; Encounter for immunization Z23 and Generalized anxiety disorder F41.1 [place] [address] [address] [place] [id number] [place] [address] 27 Feb, 2018 Bipolar 1 disorder, mixed F3 1.60 [place] [address] [address] [place] [id number] [place] [address] 26 Feb, 2018 Allergic rhinitis J30.9 [place] [address] [address] [place] [id number] [place] [address] 24 Feb, 2018 Bipolar 1 disorder, mixed F3 1.60 [place] [address] [address] [place] [id number] [place] [address] 20 Feb, 2018 Bipolar 1 disorder, mixed F3 1.60 and Generalized anxiety disorder F41.1 [place] [address] [address] [place] [id number] [place] [address] 13 Feb, 2018 Bipolar 1 disorder, mixed F3 1.60 [facility] [address] [place] [id number] [place] [address] Feb, Allergic rhinitis J30.9 [facility] [address] [place] [id number] [place] [address] Feb, [place] [address] [address] [place] [id number] [place] [address] Jan, Bipolar 1 disorder, mixed F3 1.60 [place] [address] [address] [place] [id number] [place] [address] Jan, Low back pain M54.5 ; Hyperl ipidemia, unspecified hyperlipidemia type E78.5 and Bipolar 1 disorder, mixed F31.60 [place] [address] [address] [place] [id number] [place] [address] Jan, Bipolar 1 disorder, mixed F3 1.60 [place] [address] [address] [place] [id number] [place] [address] Jan, Bipolar 1 disorder, mixed F3 1.60 [place] [address] [address] [place] [id number] [place] [address] Jan, Bipolar 1 disorder, mixed F3 1.60 [place] [address] [address] [place] [id number] [place] [address] Jan, Bipolar 1 disorder, mixed F3 1.60 [place] [address] [address] Dec, Bipolar 1 disorder, mixed F3 1.60 ; Generalized anxiety disorder F41.1 and Other alf (current) drug therapy Z79.899 [place] [address] [address] Dec, 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 [place] [address] [address] [place] [id number] [place] [address] Dec, Bipolar 1 disorder, mixed F3 1.60 [place] [address] [address] [place] [id number] [place] [address] Dec, Bipolar 1 disorder, mixed F3 1.60 [facility] [address] [address] Nov, Bipolar 1 disorder, mixed F3 1.60 [facility] [address] [place] [id number] [place] [address] Nov, Bipolar 1 disorder, mixed F3 1.60 [facility] [address] [place] [id number] [place] [address] Nov, Bipolar 1 disorder, mixed F3 1.60 [place] [address] [address] Nov, Allergic rhinitis J30.9 [place] [address] [address] Nov, Allergic rhinitis J30.9 [place] [address] [address] [place] [id number] [place] [address] Nov, [place] [address] [address] Nov, Bipolar 1 disorder, mixed F3 1.60 [place] [address] [address] [place] [id number] [place] [address] Nov, Fibromyalgia M79.7 and Aller gic rhinitis J30.9 [place] [address] [address] [place] [id number] [place] [address] October, Bipolar 1 disorder, mixed F3 1.60 [facility] [address] [place] [id number] [place] [address] October, Acute nasopharyngitis J00 [facility] [address] [place] [id number] [place] [address] October, Bitten or stung by nonvenomo us insect and other nonvenomous arthropods, initial encounter W57.XXXA and Insect bite (nonvenomous) of abdominal wall, initial encounter S30.861A [facility] [address] [place] [id number] [place] [address] October, Insect bite (nonvenomous) of abdominal wall, initial encounter S30.861A ; Bitten or stung by nonvenomous insect and other nonvenomous arthropods, initial encounter W57.XXXA ; Allergic rhinitis J30.9 and Low back pain M54.5 [facility] [address] [facility] [id number] [address] [place] [address] October, Bipolar 1 disorder, mixed F3 1.60 [facility] [address] [place] [id number] [place] [address] October, [facility] [address] [place] [id number] [place] [address] October, [facility] [address] [place] [id number] [place] [address] October, Bipolar 1 disorder, mixed F3 1.60 [facility] [address] [place] [id number] [place] [address] Sep, Bipolar 1 disorder, mixed F3 1.60 [facility] [address] [place] [id number] [place] [address] Sep, Other chronic pain G89.29 [facility] [address] [place] [id number] [place] [address] Sep, [facility] [address] [place] [id number] [place] [address] Sep, Bipolar 1 disorder, mixed F3 1.60 [facility] [address] [place] [id number] [place] [address] Sep, Allergic rhinitis J30.9 and Sciatica of left side M54.32 [facility] [address] [place] [id number] [place] [address] Sep, Bipolar 1 disorder, mixed F3 1.60 [facility] [address] [facility] [id number] [address] [place] [address] Sep, Bipolar 1 disorder, mixed F3 1.60 and Generalized anxiety disorder F41.1 [facility] [address] [facility] [id number] [address] [place] [address] Aug, [facility] [address] [facility] [id number] [address] [place] [address] Aug, Bipolar 1 disorder, mixed F3 1.60 [facility] [address] [facility] [id number] [address] [place] [address] Aug, Bipolar 1 disorder, mixed F3 1.60 [facility] [address] [place] [id number] [place] [address] Aug, [facility] [address] [place] [id number] [place] [address] Aug, Generalized anxiety disorder F41.1 [facility] [address] [place] [id number] [place] [address] Aug, Bipolar 1 disorder, mixed F3 1.60 [facility] [address] [place] [id number] [place] [address] Aug, Plantar wart of right foot B 07.0 [facility] [address] [place] [id number] [place] [address] Aug, Bipolar 1 disorder, mixed F3 1.60 [facility] [address] [facility] [id number] [address] [place] [address] Jul, Bipolar 1 disorder, mixed F3 1.60 [facility] [address] [facility] [id number] [address] [place] [address] Jul, [facility] [address] [place] [id number] [place] [address] Jul, Bipolar 1 disorder, mixed F3 1.60 [facility] [address] [place] [id number] [place] [address] 09 Jul, 2017 Generalized anxiety disorder F41.1 [facility] [address] [facility] [id number] [address] [place] [address] 07 Jul, 2017 Bipolar 1 disorder, mixed F3 1.60 [facility] [address] [facility] [id number] [address] [place] [address] 07 Jul, 2017 Acute left-sided low back pa in with left-sided sciatica M54.42 [facility] [address] [facility] [id number] [address] [place] [address] Jul, Coccydynia M53.3 [place] [address] [facility] [id number] [address] [place] [address] Jun, Bipolar 1 disorder, mixed F3 1.60 [facility] [place] 2[facility] [address] [facility] [id number] [address] [place] [address] Jun, Acute nasopharyngitis J00 [place] [address] [facility] [id number] [address] [place] [address] Jun, Bipolar 1 disorder, mixed F3 1.60 [place] [id number] [facility] [id number] [address] [place] [address] Jun, Fibromyalgia M79.7 [place] [address] [facility] [id number] [address] [place] [address] Jun, Bipolar 1 disorder, mixed F3 1.60 [place] [address] [facility] [id number] [address] [place] [address] Jun, Fibromyalgia M79.7 and Bipol ar 1 disorder, mixed F31.60 [facility] [address] [facility] [id number] [address] [place] [address] May, Bipolar 1 disorder, mixed F3 1.60 ; Generalized anxiety disorder F41.1 and Other alf (current) drug therapy Z79.899 [facility] [address] [facility] [id number] [address] [place] [address] May, Bipolar 1 disorder, mixed F3 1.60 [facility] [address] [address] 14 May, 2017 Cough R05 and Body aches R52 [facility]ALK IN [facility] [address] [address] 10 May, 2017 Bladder spasm N32.89 and Acu te cystitis without hematuria N30.00 [place] [address] [address] 07 May, 2017 Bipolar 1 disorder, mixed F3 1.60 [place] [address] [address] 30 Apr, 2017 [place] [address] [address] 29 Apr, 2017 Major depressive disorder, r ecurrent episode, moderate F33.1 and Encounter for immunization Z23 [place] [address] [address] 29 Apr, 2017 Bipolar 1 disorder, mixed F3 1.60 [place] [address] [address] 22 Apr, 2017 Bipolar 1 disorder, mixed F3 1.60 [place] [address] [address] 16 Apr, 2017 Bipolar 1 disorder, mixed F3 1.60 [place] [address] [address] 13 Apr, 2017 Yeast vaginitis B37.3 [place] [address] [address] 09 Apr, 2017 Bipolar 1 disorder, mixed F3 1.60 [facility]ALK IN [facility] [address] [address] 07 Apr, [address]03[address] for immunization Z23 [place] [address] [address] 02 Apr, 2017 Bipolar 1 disorder, mixed F3 1.60 [place] [address] [address] Mar, Bipolar 1 disorder, mixed F3 1.60 [place] [address] [place] [id number] Mar, Bipolar 1 disorder, mixed F3 1.60 [place] [address] [address] Mar, Imbalance R26.89 [address] Encount er for immunization Z23 [place] [address] [address] [place] [id number] Mar, Generalized anxiety disorder F41.1 [place] [address] [address] Mar, Bipolar 1 disorder, mixed F3 1.60 [place] [address] [address] Mar, Generalized anxiety disorder F41.1 [place] [address] [address] Mar, Bipolar 1 disorder, mixed F3 1.60 [place] [address] [address] Mar, Bipolar 1 disorder, mixed F3 1.60 [place] [address] [address] Feb, Bipolar 1 disorder, mixed F3 1.60 [place] [address] [address] Feb, Bipolar 1 disorder, mixed F3 1.60 and Generalized anxiety disorder F41.1 [place] [address] [address] Feb, Gastritis without bleeding, unspecified chronicity, unspecified gastritis type K29.70 ; Hammer toe of right foot M20.41 and Other viral warts B07.8 [place] [address] [place] [id number] [place] [address] 20 Feb, 2017 Bipolar 1 disorder, mixed F3 1.60 [facility] [address] [facility] [id number] [address] [place] [address] 13 Feb, 2017 Bipolar 1 disorder, mixed F3 1.60 [facility] [address] [place] [id number] [place] [address] 05 Feb, 2017 Bipolar 1 disorder, mixed F3 1.60 [facility] [address] [facility] [id number] [address] [place] [address] Jan, Encounter for screening mamm ogram for breast cancer Z12.31 ; Other viral warts B07.8 and Allergic rhinitis J30.9 [place] [address] [facility] [id number] [address] [place] [address] Jan, Bipolar 1 disorder, mixed F3 1.60 [place] [address] [place] [id number] [place] [address] Jan, Bipolar 1 disorder, mixed F3 1.60 [place] [address] [facility] [id number] [address] [place] [address] Jan, [place] [address] [facility] [id number] [address] [place] [address] Jan, Bipolar 1 disorder, mixed F3 1.60 [place] [address] [facility] [id number] [address] [place] [address] Jan, Bipolar 1 disorder, mixed F3 1.60 [place] [address] [facility] [id number] [address] [place] [address] Jan, Allergic rhinitis J30.9 ; He maturia R31.9 and Colon cancer screening Z12.11 [facility] [address] [facility] [id number] [address] [place] [address] Dec, Bipolar 1 disorder, mixed F3 1.60 [place] [address] [facility] [id number] [address] [place] [address] Dec, Bipolar 1 disorder, mixed F3 1.60 ; Generalized anxiety disorder F41.1 and 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 [place] [address] [facility] [id number] [address] [place] [address] Dec, Bipolar 1 disorder, mixed F3 1.60 [facility] [address] [place] [id number] [place] [address] Dec, Bipolar 1 disorder, mixed F3 1.60 [facility] [address] [facility] [id number] [address] [place] [address] Dec, Bipolar 1 disorder, mixed F3 1.60 [place] [address] [place] [id number] [place] [address] Dec, Low back pain M54.5 and Recu rrent urinary tract infection N39.0 [place] [address] [address] [place] [id number] [place] [address] Nov, Bipolar 1 disorder, mixed F3 1.60 [place] [address] [facility] [id number] [address] [place] [address] Nov, Bipolar 1 disorder, mixed F3 1.60 [place] [address] [facility] [id number] [address] [place] [address] Nov, Bipolar 1 disorder, mixed F3 1.60 [facility] [address] [facility] [id number] [address] [place] [address] Nov, Bipolar 1 disorder, mixed F3 1.60 [facility] [address] [facility] [id number] [address] [place] [address] Nov, [place] [address] [facility] [id number] [address] [place] [address] Nov, Anesthesia of skin R20.0 ; F requent UTI N39.0 ; Tobacco abuse Z72.0 and Colon cancer screening Z12.11 [facility] [address] [facility] [id number] [address] [place] [address] Nov, Bipolar 1 disorder, mixed F3 1.60 [facility] [address] [place] [id number] [place] [address] October, Bipolar 1 disorder, mixed F3 1.60 [facility] [address] [place] [id number] [place], [place] [address] October, Bipolar 1 disorder, mixed F3 1.60 [facility] [address] [place] [id number] [place] [address] October, Bipolar 1 disorder, mixed F3 1.60 [facility] [address] [place] [id number] [address] [place] [address] October, Bipolar 1 disorder, mixed F3 1.60 [place] [address] [address] October, Bipolar 1 disorder, mixed F3 1.60 [place] [address] [address] October, Cervicalgia M54.2 and Bipola r 1 disorder, mixed F31.60 [facility] [address] [place] [id number] [place] [address] October, Hypertension I10 ; Hyperlipi demia, unspecified hyperlipidemia type E78.5 and Family history of thyroid disease Z83.49 [place] [address] [place] [id number] [address] [place] [address] October, [facility] [address] [place] [id number] [address] [place] [address] October, Hypertension I10 ; Hyperlipi demia, unspecified hyperlipidemia type E78.5 and Family history of thyroid problem Z83.49 [facility] [address] [place] [id number] [place] [address] October, Bipolar 1 disorder, mixed F3 1.60 [facility] [address] [place] [id number] [address] [place] [address] Sep, Bipolar 1 disorder, mixed F3 1.60 [facility] [address] [facility] [id number] [address] [place] [address] Sep, Bipolar 1 disorder, mixed F3 1.60 [facility] [address] [place] [id number] [place] [address] Sep, Bipolar 1 disorder, mixed F3 1.60 [facility] [address] [place] [id number] [place] [address] Sep, History of colon polyps Z86. 010 and Hematochezia K92.1 [facility] [address] [facility] [id number] [address] [place] [address] Sep, Major depressive disorder, r ecurrent episode, moderate F33.1 [facility] [address] [place] [id number] [address] [place] [address] Sep, Bipolar 1 disorder, mixed F3 1.60 [place] [address] [place] [id number] [address] [place] [address] Aug, Hot flashes due to menopause N95.1 [facility] [address] [place] [id number] [address] [place] [address] Aug, Bipolar 1 disorder, mixed F3 1.60 [place] [address] [place] [id number] [address] [place] [address] Aug, [facility] [address] [place] [id number] [place] [address] Aug, Bipolar 1 disorder, mixed F3 1.60 [facility] [address] [place] [id number] [address] [place] [address] Aug, Bipolar 1 disorder, mixed F3 1.60 [facility] [address] [place] [id number] [place] [address] Aug, Hot flashes due to menopause N95.1 ; Cervicalgia M54.2 and Ataxia R27.0 [facility] [address] [place] [id number] [address] [place] [address] Jul, Bipolar 1 disorder, mixed F3 1.60 [facility] [address] [address] Jul, Bipolar 1 disorder, mixed F3 1.60 [facility] [address] [place] [id number] Jul, Bipolar 1 disorder, mixed F3 1.60 [place] [address] [address] Jul, Bipolar 1 disorder, mixed F3 1.60 [place] [address] [address] Jul, Bipolar 1 disorder, mixed F3 1.60 [place] [address] [address] 08 Jul, 2016 Cervicalgia M54.2 ; Tremor R 25.1 ; Hearing abnormally acute, unspecified laterality H93.239 ; Alopecia L65.9 ; Encounter for immunization Z23 and Family history of thyroid disease Z83.49 [place] [address] [address] Jul, Bipolar 1 disorder, mixed F3 1.60 [place] [address] [address] Jun, [place] [address] [address] Jun, Hearing disorder, unspecifie d laterality H93.299 [place] [address] [address] Jun, Bipolar 1 disorder, mixed F3 1.60 [place] [address] [address] Jun, Bipolar 1 disorder, mixed F3 1.60 [place] [address] [address] Jun, Allergic rhinitis J30.9 [place] [address] [place] [id number] [place] [address] Jun, Bipolar 1 disorder, mixed F3 1.60 [facility] [address] [id number] [address] [place] [address] Jun, Bipolar 1 disorder, mixed F3 1.60 [facility] [address] [facility] [id number] [address] [place] [id number] Jun, Allergic rhinitis J30.9 [facility] [address] [id number] [address] [place] [id number] Jun, Allergic rhinitis J30.9 [facility] [address] [id number] [address] [place] [id number] Jun, Bipolar 1 disorder, mixed F3 1.60 [facility] [address] [facility] [id number] [address] [place] [phone] May, Bipolar 1 disorder, mixed F3 1.60 [facility] [address] [id number] [address] [place] [id number] May, Bipolar 1 disorder, mixed F3 1.60 [facility] [address] [id number] [address] [place] [id number] May, [facility] [address] [facility] [id number] [address] [place] [id number] May, Bipolar 1 disorder, mixed F3 1.60 [facility] [address] [facility] [id number] [address] [place] [id number] May, Bipolar 1 disorder, mixed F3 1.60 [facility] [address] [id number] [address] [place] [id number] May, [facility] [address] [facility] [id number] [address] [place] [phone] May, [facility] [address] [facility] [id number] [address] [place] [id number] May, [facility] [address] [facility] [id number] [address] [place] [id number] May, Abdominal pain, unspecified location R10.9 [facility] [address] [id number] May, [facility] [address] [id number] Apr, Hematuria R31.9 ; Ataxia R27 .0 and Hearing loss, unspecified laterality H91.90 [facility] [address] [id number] Apr, Bipolar 1 disorder, mixed F3 1.60 [facility] [address] [id number] Apr, Acute effusion of both middl e ears H65.193 [place] [address] [id number] Apr, Hematuria R31.9 and Pyelonep hritis N12 [facility] [address] [address] Apr, [place] [address] [address] Mar, Bipolar 1 disorder, mixed F3 1.60 [place] [address] [address] Mar, [facility] [address] [address] Mar, Bipolar 1 disorder, mixed F3 1.60 [place] [address] [address] Mar, Bipolar 1 disorder, mixed F3 1.60 [place] [address] [address] Mar, Encounter for immunization Z 23 and Gastritis without bleeding, unspecified chronicity, unspecified gastritis type K29.70 [place] [address] [address] Mar, Bipolar 1 disorder, mixed F3 1.60 and Grief F43.20 [place] [address] [address] [place] [id number] Mar, Gastritis without bleeding, unspecified chronicity, unspecified gastritis type K29.70 [place] [address] [address] [place] [id number] [address] [place] [id number] Mar, Bipolar 1 disorder, mixed F3 1.60 [place] [address] [address] [place] [id number] [place] [id number] Mar, Gastritis without bleeding, unspecified chronicity, unspecified gastritis type K29.70 [place] [address] [address] [place] [id number] [place] [id number] Mar, [place] [address] [place] [address] Feb, Bipolar 1 disorder, mixed F3 1.60 [place] [address] [address] [place] [id number] [address] [place] [address] Feb, Bipolar 1 disorder, mixed F3 1.60 and Grief F43.20 [place] [address] [address] [place] [id number] Feb, Gastritis without bleeding, unspecified chronicity, unspecified gastritis type K29.70 [place] [address] [place] [address] 14 Feb, 2016 Bipolar 1 disorder, mixed F3 1.60 [facility] [address] [facility] [id number] [address] [place] [address] 09 Feb, 2016 Gastroesophageal reflux dise ase, esophagitis presence not specified K21.9 [facility] [address] [place] [id number] [address] [place], [place] [address] Jan, Bipolar 1 disorder, mixed F3 1.60 [place] [address] [address] [place] [id number] [address] [place] [address] Jan, Bipolar 1 disorder, mixed F3 1.60 and Unsteady gait R26.81 [facility] [address] [id number] [address] [place] [address] Jan, Bipolar 1 disorder, mixed F3 1.60 [facility] [address] [id number] [address] [place] [address] Jan, Bipolar 1 disorder, mixed F3 1.60 and 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 [facility] [address] [id number] [address] [place] [address] Jan, Bipolar 1 disorder, mixed F3 1.60 [place] [address] [address] [facility] [id number] [address] [place] [address] Jan, Bipolar 1 disorder, mixed F3 1.60 [place] [address] [address] [facility] [id number] [address] [place] [address] Jan, Bipolar 1 disorder, mixed F3 1.60 ; Grief F43.20 and Other alf (current) drug therapy Z79.899 [facility] [address] [facility] [id number] [address] [place] [address] Jan, Bipolar 1 disorder, mixed F3 1.60 [place] [id number] [facility] [id number] [address] [place] [address] Dec, [facility] [address] [facility] [id number] [address] [place] [address] Dec, Bipolar 1 disorder, mixed F3 1.60 ; Vitamin D deficiency, unspecified E55.9 ; H/O allergic rhinitis Z87.09 ; Other chronic pain G89.29 and Dorsalgia, unspecified M54.9 [facility] [address] [facility] [id number] [address] [place] [address] Dec, [place] [id number] [facility] [id number] [address] [place] [address] Dec, Bipolar 1 disorder, mixed F3 1.60 [place] [id number] [address] Dec, Major depressive disorder, r ecurrent episode, moderate F33.1 [place] [address] [address] Dec, Major depressive disorder, r ecurrent episode, moderate F33.1 [place] [address] [address] Nov, [place] [address] [address] Nov, Bipolar 1 disorder, mixed F3 1.60 [place] [address] [address] Nov, Major depressive disorder, r ecurrent episode, moderate F33.1 [place] [address] [address] Nov, Cervicalgia M54.2 ; Arthralg ia of hip, unspecified laterality M25.559 ; Allergic rhinitis J30.9 and Hormone replacement therapy Z79.890 [facility] [address] [address] Nov, Other seasonal allergic rhin itis J30.2 [place] [address] [address] October, Major depressive disorder, r ecurrent episode, moderate F33.1 [place] [address] [address] October, Major depressive disorder, r ecurrent episode, moderate F33.1 and Arthralgia of hip, unspecified laterality M25.559 [place] [address] [address] October, Grief F43.20 ; Hypertension I10 ; Hyperlipidemia, unspecified hyperlipidemia type E78.5 ; Other chronic pain G89.29 and Allergic rhinitis, unspecified allergic rhinitis type J30.9 [facility] [address] [place] [id number] [address] [place] [address] October, Major depressive disorder, r ecurrent episode, moderate F33.1 [facility] [address] [id number] [address] [place] [address] Sep, Major depressive disorder, r ecurrent episode, moderate F33.1 [facility] [address] [facility] [id number] [address] [place] [address] Sep, [place] [address] [address] [facility] [id number] [address] [place] [address] Sep, Major depressive disorder, r ecurrent episode, moderate F33.1 [place] [address] [address] [facility] [id number] [address] [place] [address] Sep, Grief F43.20 [place] [address] [address] [facility] [id number] [address] [place] [address] Aug, Major depressive disorder, r ecurrent episode, moderate F33.1 [place] [address] [address] [facility] [id number] [address] [place] [address] Aug, Bipolar 1 disorder, mixed F3 1.60 [place] [address] [address] [facility] [id number] [address] [place] [address] Aug, Allergic rhinitis J30.9 ; Ce rvicalgia M54.2 and Low back pain M54.5 [place] [address] [address] [facility] [id number] [address] [place] [address] Aug, Major depressive disorder, r ecurrent episode, moderate F33.1 [facility] [address] [facility] [id number] [address] [place] [address] Aug, Sinusitis J32.9 and Tobacco 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 [facility] [address] [facility] [id number] [address] [place] [address] Aug, [facility] [address] [facility] [id number] [address] [place] [address] Aug, Depressive disorder, not els ewhere classified F32.9 ; Hormone replacement therapy Z79.[address] scan, head R93.0 [facility] [address] [id number] [address] [place] [address] Aug, Major depressive disorder, r ecurrent episode, moderate F33.1 [facility] [address] [id number] [address] [place] [address] Jul, Major depressive disorder, r ecurrent episode, moderate F33.1 [facility] [address] [id number] [address] [place] [address] Jul, Abdominal pain R10.9 and Hyp ertension I10 [facility] [address] [id number] [address] [place] [address] Jul, [facility] [address] [id number] [address] [place] [address] Jul, Major depressive disorder, r ecurrent episode, moderate F33.1 [facility] [address] [id number] [address] [place] [address] Jul, [facility] [address] [id number] [address] [place] [address] Jul, [facility] [address] [id number] [address] [place] [address] Jun, [facility] [address] [id number] [address] [place] [address] Jun, Depressive disorder, not els ewhere classified F32.9 [facility] [address] [id number] [address] [place] [address] Jun, [facility] [address] [id number] [address] [place] [address] Jun, [facility] [address] [id number] [address] [place] [address] Jun, Arthralgia of hip, unspecifi ed laterality M25.559 ; Bruising, spontaneous R23.3 and Night sweats R61 [facility] [address] [id number] [address] [place] [address] Jun, [facility] [address] [facility] [id number] [address] [place] [address] Jun, [facility] [address] [place] [id number] [address] [place] [address] May, [facility] [address] [place] [id number] [address] [place] [address] May, Myalgia M79.1 and Screening, lipid Z13.220 [facility] [address] [place] [id number] [place] [address] Apr, Status post cervical spinal fusion Z98.1 ; Fibromyalgia M79.7 and Unsteady gait R26.81 [facility] [address] [place] [id number] [address] [place] [address] Nov, [facility] [address] [facility] [id number] [address] [place] [address] Nov, [facility] [address] [place] [id number] [address] [place] [address] October, [facility] [address] [place] [id number] [address] [place] [address] October, [facility] [address] [facility] [id number] [address] [place] [address] October, [facility] [address] [facility] [id number] [address] [place] [address] October, [facility] [address] [place] [id number] [address] [place] [address] October, [facility] [address] [place] [id number] [address] [place] [address] October, Dysuria 788.1 ; Nausea 787.0 2 and Urinary tract infection 599.0 [facility] [address] [id number] [facility] [place] [address] 14 Sep, 2014 [facility] [address] [id number] [address] [place] [address], [place] [address] 13 Sep, 2014 [facility] [address] [id number] [address] [place] [address], [place] [address] 25 Aug, 2014 [facility] [address] [id number] [address] [place] [address], [place] [address] 25 Aug, 2014 [facility] [address] [id number] [address] [place] [address], [place] [address] 24 Aug, 2014 [facility] [address] [id number] [address] [place] [address], [place] [address] 24 Aug, 2014 [facility] [address] [id number] [address] [place] [address], [place] [address] 23 Aug, 2014 [facility] [address] [id number] [address] [place] [address], [place] [address] 19 Aug, 2014 [facility] [address] [id number] [address] [place] [address], [place] [address] 19 Aug, 2014 [facility] [address] [id number] [address] [place] [address], [place] [address] 19 Aug, 2014 [facility] [address] [id number] [address] [place] [address], [place] [address] 19 Aug, 2014 [facility] [address] [id number] [address] [place] [address], [place] [address] 18 Aug, 2014 [facility] [address] [id number] [address] [place] [address], [place] [address] 18 Aug, 2014 [facility] [address] [id number] [address] [place] [address], [place] [address] 13 Aug, 2014 [facility] [address] [id number] [address] [place] [address], [place] [address] 13 Aug, 2014 [facility] [address] [id number] [address] [place] [address], [place] [address] Aug, [facility] [address] [id number] [address] [place] [address], [place] [address] Aug, [facility] [address] [id number] [address] [place] [address], [place] [address] Aug, [facility] [address] [id number] [address] [place] [address], [place] [address] Aug, [facility] [address] [id number] [address] [place] [address], [place] [address] Aug, 2014 [facility] [address] [id number] [address] [place] [address], [place] [address] Aug, [facility] [address] [id number] [address] [place] [address], [place] [address] Aug, [facility] [address] [id number] [address] [place] [address], [place] [address] Aug, [facility] [address] [id number] [address] [place] [address], [place] [address] Aug, [facility] [address] [id number] [address] [place] [address], [place] [address] Jul, [facility] [address] [id number] [address] [place] [address], [place] [address] Jul, [facility] [address] [id number] [address] [place] [address], [place] [address] Jul, [facility] [address] [id number] [address] [place] [address], [place] [address] Jul, [facility] [address] [id number] [address] [place] [address], [place] [address] Jul, [facility] [address] [id number] [address] [place] [address], [place] [address] Jul, [facility] [address] [id number] [address] [place] [address], [place] [address] Jul, [facility] [address] [id number] [address] [place] [address], [place] [address] Jul, 2014 [facility] [address] [id number] [address] [place] [address], [place] [address] Jul, 2014 [facility] [address] [id number] [address] [place] [address], [place] [address] Jul, 2014 [facility] [address] [id number] [address] [place] [address], [place] [address] Jul, 2014 [facility] [address] [id number] [address] [place] [address], [place] [address] Jul, 2014 [facility] [address] [id number] [address] [place] [address], [place] [address] Jul, [facility] [address] [id number] [address] [place] [address], [place] [address] Jul, [facility] [address] [id number] [address] [place] [address], [place] [address] Jun, [facility] [address] [id number] [address] [place] [address], [place] [address] Jun, [facility] [address] [id number] [address] [place] [address], [place] [address] Jun, [facility] [address] [id number] [address] [place] [address], [place] [address] Jun, [facility] [address] [id number] [address] [place] [address], [place] [address] Jun, [facility] [address] [id number] [address] [place] [address], [place] [address] Jun, [facility] [address] [id number] [address] [place] [address], [place] [address] May, [facility] [address] [id number] [address] [place] [address], [place] [address] May, [facility] [address] [id number] [address] [place] [address], [place] [address] May, [facility] [address] [id number] [address] [place] [address], [place] [address] May, [facility] [address] [id number] [address] [place] [address], [place] [address] May, [facility] [address] [id number] [address] [place] [address], [place] [address] May, [facility] [address] [id number] [address] [place] [address], [place] [address] Apr, [facility] [address] [id number] [address] [place] [address], [place] [address] Apr, [facility] [address] [id number] [address] [place] [address], [place] [address] Apr, [facility] [address] [id number] [address] [place] [address], [place] [address] Apr, [facility] [address] [id number] [address] [place] [address] Apr, [facility] [address] [id number] [address] [place] [address], [place] [address] Apr, [facility] [address] [id number] [address] [place] [address] Mar, [facility] [address] [id number] [address] [place] [address] Mar, [facility] [address] [id number] [address] [place] [address] Mar, [facility] [address] [id number] [address] [place] [address], [place] [address] Mar, [facility] [address] [id number] [address] [place] [address] Mar, [facility] [address] [id number] [address] [place] [address] Mar, [facility] [address] [id number] [address] [place] [address], [place] [address] Mar, [facility] [address] [id number] [address] [place] [address], [place] [address] Mar, [facility] [address] [id number] [address] [place] [address], [place] [address] Mar, [facility] [address] [id number] [address] [place] [address], [place] [address] Mar, [facility] [address] [id number] [address] [place] [address], [place] [address] Mar, [facility] [address] [id number] [address] [place] [address], [place] [address] Mar, [facility] [address] [id number] [address] [place] [address], [place] [address] 30 Feb, 2014 [facility] [address] [id number] [address] [place] [address], [place] [address] 29 Feb, 2013 [facility] [address] [id number] [address] [place] [address], [place] [address] 29 Feb, 2013 [facility] [address] [id number] [address] [place] [address], [place] [address] 23 Feb, 2013 [facility] [address] [id number] [address] [place] [address], [place] [address] 23 Feb, 2013 [facility] [address] [id number] [address] [place] [address], [place] [address] 08 Feb, 2013 [facility] [address] [id number] [address] [place] [address], [place] [address] 08 Feb, 2013 [facility] [address] [id number] [address] [place] [address], [place] [address] Jan, [facility] [address] [id number] [address] [place] [address], [place] [address] Jan, [facility] [address] [id number] [address] [place] [address], [place] [address] Jan, [facility] [address] [id number] [address] [place] [address], [place] [address] Dec, [facility] [address] [id number] [address] [place] [address], [place] [address] Dec, [facility] [address] [id number] [address] [place] [address], [place] [address] Dec, [facility] [address] [id number] [address] [place] [address], [place] [address] Dec, [facility] [address] [id number] [address] [place] [address], [place] [address] Sep, [facility] [address] [id number] [address] [place] [address], [place] [address] Sep, [facility] [address] [id number] [address] [place] [address], [place] [address] Sep, [facility] [address] [id number] [address] [place] [address], [place] [address] Sep, [facility] [address] [id number] [address] [place] [address], [place] [address] Sep, [facility] [address] [id number] [address] [place] [address], [place] [address] Sep, [facility] [address] [id number] [address] [place] [address], [place] [address] Sep, [facility] [address] [id number] [address] [place] [address], [place] [address] Sep, [facility] [address] [id number] [address] [place] [address], [place] [address] Aug, [facility] [address] [id number] [address] [place] [address], [place] [address] Aug, [facility] [address] [id number] [address] [place] [address], [place] [address] May, [facility] [address] [id number] [address] [place] [address], [place] [address] May, [facility] [address] [id number] [address] [place] [address], [place] [address] Apr, [facility] [address] [id number] [address] [place] [address], [place] [address] Apr, [facility] [address] [id number] [address] [place] [address], [place] [address] Apr, [facility] [address] [id number] [address] [place] [address], [place] [address] Apr, [facility] [address] [id number] [address] [place] [address], [place] [address] Apr, [facility] [address] [id number] [address] [place] [address], [place] [address] Apr, [facility] [address] [id number] [address] [place] [address], [place] [address] May, [facility] [address] [id number] [address] [place] [address], [place] [address] 18 May, 2012 [facility] [address] [id number] [address] [place] [address], [place] [address] 15 May, 2012 [facility] [address] [id number] [address] [place] [address], [place] [address] 15 May, 2012 [facility] [address] [id number] [address] [place] [address], [place] [address] 13 May, 2012 [facility] [address] [id number] [address] [place] [address], [place] [address] 13 May, 2012 [facility] [address] [id number] [address] [place] [address], [place] [address] Apr, [facility] [address] [id number] [address] [place] [address], [place] [address] Apr, [facility] [address] [id number] [address] [place] [address], [place] [address] 08 Apr, 2012 [facility] [address] [id number] [address] [place] [address], [place] [address] 08 Apr, 2012 [facility] [address] [id number] [address] [place] [address], [place] [address] Apr, [facility] [address] [id number] [address] [place] [address], [place] [address] Apr, [facility] [address] [id number] [address] [place] [address], [place] [address] Apr, [facility] [address] [id number] [address] [place] [address], [place] [address] Apr, [facility] [address] [id number] [address] [place] [address], [place] [address] Apr, [facility] [address] [id number] [address] [place] [address], [place] [address] Apr, [facility] [address] [id number] [address] [place] [address], [place] [address] Mar, [facility] [address] [id number] [address] [place] [address], [place] [address] Mar, [facility] [address] [id number] [address] [place] [address], [place] [address] Mar, [facility] [address] [id number] [address] [place] [address], [place] [address] Mar, [facility] [address] [id number] [address] [place] [address], [place] [address] Mar, [facility] [facility] [address] [id number] [address] [place] [address], [place] [address] Mar, [facility] [address] [id number] [address] [place] [address], [place] [address] Mar, [facility] [address] [id number] [address] [place] [address], [place] [address] Mar, [facility] [address] [id number] [address] [place] [address], [place] [address] Mar, [facility] [address] [id number] [address] [place] [address], [place] [address] 25 Feb, 2012 [facility] [address] [id number] [address] [place] [address], [place] [address] 16 Feb, 2012 [facility] [address] [id number] [address] [place] [address], [place] [address] 11 Feb, 2012 [facility] [address] [id number] [address] [place] [address], [place] [address] Jan, [facility] [address] [id number] [address] [place] [address], [place] [address] Jan, [facility] [address] [id number] [address] [place] [address], [place] [address] Jan, [facility] [address] [id number] [address] [place] [address], [place] [address] Jan, [facility] [address] [id number] [address] [place] [address], [place] [address] Jan, [facility] [address] [id number] [address] [place] [address], [place] [address] Jan, [facility] [address] [id number] [address] [place] [address], [place] [address] Jan, [facility] [address] [id number] [address] [place] [address], [place] [address] Jan, [facility] [address] [id number] [address] [place] [address], [place] [address] Jan, [facility] [address] [id number] [address] [place] [address], [place] [address] Jan, [facility] [address] [id number] [address] [place] [address], [place] [address] Dec, [facility] [address] [id number] [address] [place] [address], [place] [address] 24 Dec, 2011 [facility] [address] [id number] [address] [place] [address], [place] [address] Dec, [facility] [address] [id number] [address] [place] [address], [place] [address] Dec, [facility] [address] [id number] [address] [place] [address], [place] [address] Nov, [facility] [address] [id number] [address] [place] [address], [place] [address] Nov, [facility] [address] [id number] [address] [place] [address], [place] [address] Nov, [facility] [address] [id number] [address] [place] [address], [place] [address] October, [facility] [address] [id number] [address] [place] [address], [place] [address] October, [facility] [address] [id number] [address] [place] [address], [place] [address] October, [facility] [address] [id number] [address] [place] [address], [place] [address] October, [facility] [address] [id number] [address] [place] [address], [place] [address] October, [facility] [address] [id number] [address] [place] [address], [place] [address] October, [facility] [address] [id number] [address] [place] [address], [place] [address] Aug, [facility] [address] [id number] [address] [place] [address], [place] [address] Mar, [facility] [address] [id number] [address] [place] [address], [place] [address] 16 Nov, 2010 [facility] [address] [id number] [address] [place] [address], [place] [address] May, [facility] [address] [id number] [address] [place] [address], [place] [address] May, [facility] [address] [facility] [id number] [address] [place] [id number] Apr, [facility] [address] [facility] [id number] [address] [place] [address] Mar, [facility] [address] [facility] [id number] [address] [place] [address] Mar, IMMUNIZATIONS No Known Immunizations SOCIAL HISTORY Never Assessed REASON FOR VISIT Medication question PLAN OF CARE VITAL SIGNS MEDICATIONS Medication Instructions Dosage Frequency Start Date End Date Duration S alexandr Levocetirizine Dihydrochloride 5 mg Orally Once a day 1 tablet i n the evening 24h Feb, Apr, 30 day(s) Active RESULTS No Results PROCEDURES [...]
--- OUTSIDE RECORDS SUMMARY | 2019-06-19 05:57 | XMS REPORT ---
Author Author Sydnie MORTON Organization [facility] Address [address] [place] [address] Care Team Providers Care Provider Enrollment Specialist Name Role Phone JOHN MORTON Unavailable PROBLEMS Type Condition ICD9-CM Code LSG67-CI Code Onset Dates Condition S tatus SNOMED Code Problem Hormone replacement therapy Z79.890 Ac tive 286220792 Problem Abnormal CT scan, head R93.0 Active 090138006 Problem Sensorineural hearing loss (SNHL) of both ears H90 .3 Active 236333425 Problem History of colon polyps Z86.010 Active 106394126 Problem Bruising, spontaneous R23.3 Active 325864911 Problem Generalized anxiety disorder F41.1 A ctive 97309069 Problem Arthralgia of hip, unspecified laterality M25.559 Active 77575218 Problem Hematuria, unspecified type R31.9 Ac tive 29965860 Problem Imbalance R26.89 Active 253137919 Problem Hammer toe of right foot M20.41 Activ e 728438440 Problem Plantar wart of right foot B07.0 Act mitchell [id number] Problem Sciatica of left side M54.32 Active 79008643 Problem Hyperlipidemia, unspecified hyperlipidemia type E7 8.5 Active 45360506 Problem Hypertension I10 Active 9429637 3 Problem Night sweats R61 Active 1971990 0 Problem Fibromyalgia M79.7 Active 4033466 7 Problem Major depressive disorder, recurrent episode, moderate F33.1 Active 356324637 Problem Acute left-sided low back pain with left-sided sciatica M54.42 Active 506342531 Problem Bladder spasm N32.89 Active 231975 006 Problem Gastritis without bleeding, unspecified chronicity, unspecified gastritis type K29.70 Active 757807616 Problem Bipolar 1 disorder, mixed F31.60 Acti ve 07055833 Problem Grief F43.20 Active 87433487 Problem Other chronic pain G89.29 Active 8 9416669 Problem Allergic rhinitis J30.9 Active 61 719456 Problem Hot flashes due to menopause N95.1 A ctive 911015525 Problem Ataxia R27.0 Active 80129410 Problem Hearing loss, unspecified laterality H91.90 Active 39722808 ALLERGIES No Information ENCOUNTERS Encounter Location Date Diagnosis [facility] [address] [facility] [id number] [address] [place] [address] Apr, [facility] [address] [facility]] [id number] [address] [place] [address] Mar, [facility] [address] [facility]] [id number] [address] [place] [address] Mar, [facility] [address] [facility]] [id number] [address] [place] [address] 16 Mar, 2018 [facility] [address] [facility]] [id number] [address] [place] [address] Mar, [facility] [address] [facility]] [id number] [address] [place] [address] 27 Feb, 2018 Bipolar 1 disorder, mixed F3 1.60 [facility] [address] [facility]] [id number] [address] [place] [address] 26 Feb, 2018 Allergic rhinitis J30.9 [facility] [address] [facility]] [id number] [address] [place] [address] 24 Feb, 2018 Bipolar 1 disorder, mixed F3 1.60 [facility] [address] [facility]] [id number] [address] [place] [address] 20 Feb, 2018 Bipolar 1 disorder, mixed F3 1.60 and Generalized anxiety disorder F41.1 [facility] [address] [facility]] [id number] [address] [place] [address] 13 Feb, 2018 Bipolar 1 disorder, mixed F3 1.60 [facility] [address] [facility] 3] [id number] [address] [place] [address] 11 Feb, 2018 Allergic rhinitis J30.9 [facility] [address] [facility]] [id number] [address] [place] [address] Feb, [facility] [address] [place] [id number] [place] [address] Jan, Bipolar 1 disorder, mixed F3 1.60 [facility] [address] [place] [id number] [place] [address] Jan, Low back pain M54.5 ; Hyperl ipidemia, unspecified hyperlipidemia type E78.5 and Bipolar 1 disorder, mixed F31.60 [facility] [address] [place] [id number] [place] [address] Jan, Bipolar 1 disorder, mixed F3 1.60 [facility] [address] [address] Jan, Bipolar 1 disorder, mixed F3 1.60 [facility] [address] [address] Jan, Bipolar 1 disorder, mixed F3 1.60 [facility] [address] [address] Jan, Bipolar 1 disorder, mixed F3 1.60 [facility] [address] [address] Dec, Bipolar 1 disorder, mixed F3 1.60 ; Generalized anxiety disorder F41.1 and Other group home (current) drug therapy Z79.899 [facility] [address] [place] [id number] [place] [address] Dec, 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 [facility] [address] [place] [id number] [place] [address] Dec, Bipolar 1 disorder, mixed F3 1.60 [facility] [address] [place] [id number] [place] [address] Dec, Bipolar 1 disorder, mixed F3 1.60 [facility] [address] [place] [id number] [place] [address] Nov, Bipolar 1 disorder, mixed F3 1.60 [facility] [address] [place] [id number] [place] [address] Nov, Bipolar 1 disorder, mixed F3 1.60 [facility] [address] [facility] 3] [id number] [address] [place] [address] Nov, Bipolar 1 disorder, mixed F3 1.60 [place] [address] [place] [id number] [place] [address] Nov, Allergic rhinitis J30.9 [facility] [address] [facility] 3] [id number] [address] [place] [address] Nov, Allergic rhinitis J30.9 [place] [address] [place] [id number] [place] [address] Nov, [place] [address] [address] Nov, Bipolar 1 disorder, mixed F3 1.60 [place] [address] [address] Nov, Fibromyalgia M79.7 and Aller gic rhinitis J30.9 [place] [address] [place] [id number] [place] [address] October, Bipolar 1 disorder, mixed F3 1.60 [facility] [address] [place] [id number] [place] [address] October, Acute nasopharyngitis J00 [facility] [address] [place] [id number] [place] [address] October, Bitten or stung by nonvenomo us insect and other nonvenomous arthropods, initial encounter W57.XXXA and Insect bite (nonvenomous) of abdominal wall, initial encounter S30.861A [facility] [address] [facility] 3] [id number] [address] [place] [address] October, Insect bite (nonvenomous) of abdominal wall, initial encounter S30.861A ; Bitten or stung by nonvenomous insect and other nonvenomous arthropods, initial encounter W57.XXXA ; Allergic rhinitis J30.9 and Low back pain M54.5 [facility] [address] [place] [id number] [place] [address] October, Bipolar 1 disorder, mixed F3 1.60 [facility] [address] [place] [id number] [place] [address] October, [facility] [address] [place] [id number] [place] [address] October, [facility] [address] [place] [id number] [place] [address] October, Bipolar 1 disorder, mixed F3 1.60 [facility] [address] [place] [id number] [place] [address] Sep, Bipolar 1 disorder, mixed F3 1.60 [facility] [address] [place] [id number] [place] [address] Sep, Other chronic pain G89.29 [facility] [address] [place] [id number] [place] [address] Sep, [facility] [address] [place] [id number] [place] [address] Sep, Bipolar 1 disorder, mixed F3 1.60 [facility] [address] [place] [id number] [place] [address] Sep, Allergic rhinitis J30.9 and Sciatica of left side M54.32 [facility] [address] [place] [id number] [place] [address] Sep, Bipolar 1 disorder, mixed F3 1.60 [facility] [address] [place] [id number] [place] [address] Sep, Bipolar 1 disorder, mixed F3 1.60 and Generalized anxiety disorder F41.1 [facility] [address] [place] [id number] [place] [address] Aug, [facility] [address] [facility] 3] [id number] [address] [place] [address] Aug, Bipolar 1 disorder, mixed F3 1.60 [facility] [address] [facility] 3] [id number] [address] [place] [address] Aug, Bipolar 1 disorder, mixed F3 1.60 [facility] [address] [facility] 3] [id number] [address] [place] [address] Aug, [facility] [address] [facility] 3] [id number] [address] [place] [address] Aug, Generalized anxiety disorder F41.1 [facility] [address] [facility] 3] [id number] [address] [place] [address] Aug, Bipolar 1 disorder, mixed F3 1.60 [facility] [address] [facility] 3] [id number] [address] [place] [address] Aug, Plantar wart of right foot B 07.0 [facility] [address] [facility] 3] [id number] [address] [place] [address] Aug, Bipolar 1 disorder, mixed F3 1.60 [facility] [address] [facility] 3] [id number] [address] [place] [address] Jul, Bipolar 1 disorder, mixed F3 1.60 [facility] [address] [facility] 3] [id number] [address] [place] [address] Jul, [facility] [address] [facility]] [id number] [address] [place] [address] Jul, Bipolar 1 disorder, mixed F3 1.60 [facility] [address] [facility] 3] [id number] [address] [place] [address] 09 Jul, 2017 Generalized anxiety disorder F41.1 [facility] [address] [facility] 3] [id number] [address] [place] [address] 07 Jul, 2017 Bipolar 1 disorder, mixed F3 1.60 [facility] [address] [facility] 3] [id number] [address] [place] [address] 07 Jul, 2017 Acute left-sided low back pa in with left-sided sciatica M54.42 [place] [address] [place] [id number] [place] [address] 05 Jul, 2017 Coccydynia M53.3 [place] [address] [place] [id number] [place] [address] Jun, Bipolar 1 disorder, mixed F3 1.60 [facility] [address] [place] [id number] [place] [address] Jun, Acute nasopharyngitis J00 [place] [address] [address] Jun, Bipolar 1 disorder, mixed F3 1.60 [place] [address] [address] Jun, Fibromyalgia M79.7 [place] [address] [address] Jun, Bipolar 1 disorder, mixed F3 1.60 [place] [address] [address] Jun, Fibromyalgia M79.7 and Bipol ar 1 disorder, mixed F31.60 [place] [address] [place] [address] May, Bipolar 1 disorder, mixed F3 1.60 ; Generalized anxiety disorder F41.1 and Other group home (current) drug therapy Z79.899 [place] [address] [place] [id number] [place] [address] May, Bipolar 1 disorder, mixed F3 1.60 [facility] [address] [place] [id number] [place] [address] 14 May, 2017 Cough R05 and Body aches R52 [facility] [address] [place] [id number] [place] [address] May, Bladder spasm N32.89 and Acu te cystitis without hematuria N30.00 [facility] [address] [address] 07 May, 2017 Bipolar 1 disorder, mixed F3 1.60 [facility] [address] [address] 30 Apr, 2017 [place] [address] [place] [address] Apr, Major depressive disorder, r ecurrent episode, moderate F33.1 and Encounter for immunization Z23 [place] [address] [address] Apr, Bipolar 1 disorder, mixed F3 1.60 [place] [address] [address] Apr, Bipolar 1 disorder, mixed F3 1.60 [place] [address] [address] Apr, Bipolar 1 disorder, mixed F3 1.60 [place] [address] [address] Apr, Yeast vaginitis B37.3 [place] [address] [address] 09 Apr, 2017 Bipolar 1 disorder, mixed F3 1.60 [facility] [address] [address] 07 Apr, 2017 [address]itis [address]03[address] for immunization Z23 [place] [address] [address] Apr, Bipolar 1 disorder, mixed F3 1.60 [facility] [address] [address] Mar, Bipolar 1 disorder, mixed F3 1.60 [place] [address] [address] Mar, Bipolar 1 disorder, mixed F3 1.60 [place] [address] [address] Mar, Imbalance R26.89 and Encount er for immunization Z23 [place] [address] [place] [id number] [place] [address] Mar, Generalized anxiety disorder F41.1 [place] [address] Mar, Bipolar 1 disorder, mixed F3 1.60 [place] [address] [address] Mar, Generalized anxiety disorder F41.1 [place] [address] [place] [id number] [place] [address] Mar, Bipolar 1 disorder, mixed F3 1.60 [place] [address] [address] Mar, Bipolar 1 disorder, mixed F3 1.60 [place] [address] [address] Feb, Bipolar 1 disorder, mixed F3 1.60 [place] [address] [place] [id number] [place] [address] Feb, Bipolar 1 disorder, mixed F3 1.60 and Generalized anxiety disorder F41.1 [place] [address] [address] Feb, Gastritis without bleeding, unspecified chronicity, unspecified gastritis type K29.70 ; Hammer toe of right foot M20.41 and Other viral warts B07.8 [place] [address] [place] [id number] [place] [address] Feb, Bipolar 1 disorder, mixed F3 1.60 [place] [address] [place] [id number] [place] [address] Feb, Bipolar 1 disorder, mixed F3 1.60 [facility] [address] [facility]] [id number] [address] [place] [address] 05 Feb, 2017 Bipolar 1 disorder, mixed F3 1.60 [facility] [address] [place] [id number] [place] [address] Jan, Encounter for screening mamm ogram for breast cancer Z12.31 ; Other viral warts B07.8 and Allergic rhinitis J30.9 [place] [address] [facility]] [id number] [address] [place] [address] Jan, Bipolar 1 disorder, mixed F3 1.60 [place] [address] [place] [id number] [place] [address] Jan, Bipolar 1 disorder, mixed F3 1.60 [place] [address] [place] [id number] [place] [address] Jan, [place] [address] [place] [id number] [place] [address] Jan, Bipolar 1 disorder, mixed F3 1.60 [place] [address] [place] [id number] [place] [address] Jan, Bipolar 1 disorder, mixed F3 1.60 [place] [address] [place] [id number] [place] [address] Jan, Allergic rhinitis J30.9 ; He maturia R31.9 and Colon cancer screening Z12.11 [place] [address] [place] [id number] [place] [address] Dec, Bipolar 1 disorder, mixed F3 1.60 [place] [address] [place] [id number] [place] [address] 18 Dec, 2016 Bipolar 1 disorder, mixed F3 1.60 ; Generalized anxiety disorder F41.1 and 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 [facility] [address] [place] [id number] [place] [address] 17 Dec, 2016 Bipolar 1 disorder, mixed F3 1.60 [facility] [address] [id number] [address] [place] [address] Dec, Bipolar 1 disorder, mixed F3 1.60 [facility] [address] [facility]] [id number] [address] [place] [address] Dec, Bipolar 1 disorder, mixed F3 1.60 [facility] [address] [facility]] [id number] [address] [place] [address] Dec, Low back pain M54.5 and Recu rrent urinary tract infection N39.0 [facility] [address] [facility]] [id number] [address] [place] [address] Nov, Bipolar 1 disorder, mixed F3 1.60 [facility] [address] [facility]] [id number] [address] [place] [address] Nov, Bipolar 1 disorder, mixed F3 1.60 [facility] [address] [facility]] [id number] [address] [place] [address] Nov, Bipolar 1 disorder, mixed F3 1.60 [facility] [address] [facility] 3] [id number] [address] [place] [address] Nov, Bipolar 1 disorder, mixed F3 1.60 [facility] [address] [facility]] [id number] [address] [place] [address] Nov, [facility] [address] [facility]] [id number] [address] [place] [address] Nov, Anesthesia of skin R20.0 ; F requent UTI N39.0 ; Tobacco abuse Z72.0 and Colon cancer screening Z12.11 [facility] [address] [facility]] [id number] [address] [place] [address] Nov, Bipolar 1 disorder, mixed F3 1.60 [facility] [address] [facility]] [id number] [address] [place] [address] October, Bipolar 1 disorder, mixed F3 1.60 [facility] [address] [facility]] [id number] [address] [place] [address] October, Bipolar 1 disorder, mixed F3 1.60 [facility] [address] [place] [id number] [place] [address] October, Bipolar 1 disorder, mixed F3 1.60 [facility] [address] [place] [id number] [place] [address] October, Bipolar 1 disorder, mixed F3 1.60 [place] [address] [place] [id number] [place] [address] October, Bipolar 1 disorder, mixed F3 1.60 [place] [address] [place] [id number] [place] [address] October, Cervicalgia M54.2 and Bipola r 1 disorder, mixed F31.60 [place] [address] [place] [id number] [place] [address] October, Hypertension I10 ; Hyperlipi demia, unspecified hyperlipidemia type E78.5 and Family history of thyroid disease Z83.49 [place] [address] [place] [id number] [place] [address] October, [place] [address] [place] [id number] [place] [address] October, Hypertension I10 ; Hyperlipi demia, unspecified hyperlipidemia type E78.5 and Family history of thyroid problem Z83.49 [place] [address] [place] [id number] [place] [address] October, Bipolar 1 disorder, mixed F3 1.60 [place] [address] [place] [id number] [place] [address] Sep, Bipolar 1 disorder, mixed F3 1.60 [place] [address] [place] [id number] [place] [address] Sep, Bipolar 1 disorder, mixed F3 1.60 [place] [address] [place] [id number] [place] [id number] Sep, Bipolar 1 disorder, mixed F3 1.60 [facility] [address] [place] [id number] [address] [place] [address] Sep, History of colon polyps Z86. 010 and Hematochezia K92.1 [facility] [address] [place] [id number] [address] [place] [id number] Sep, Major depressive disorder, r ecurrent episode, moderate F33.1 [facility] [address] [place] [id number] [address] [place] [id number] Sep, Bipolar 1 disorder, mixed F3 1.60 [facility] [address] [place] [id number] [address] [place] [address] Aug, Hot flashes due to menopause N95.1 [facility] [address] [place] [id number] [address] [place] [address] Aug, Bipolar 1 disorder, mixed F3 1.60 [place] [id number] [place] [address] Aug, [facility] [address] [place] [id number] [address] [place] [address] Aug, Bipolar 1 disorder, mixed F3 1.60 [place] [address] [place] [id number] [place] [address] Aug, Bipolar 1 disorder, mixed F3 1.60 [place] [address] [place] [id number] [place] [address] Aug, Hot flashes due to menopause N95.1 ; Cervicalgia M54.2 and Ataxia R27.0 [facility] [address] [facility][NOTE 3] [id number] [address] [place] [address] Jul, Bipolar 1 disorder, mixed F3 1.60 [facility] [address] [place] [id number] [place] [address] Jul, Bipolar 1 disorder, mixed F3 1.60 [facility] [address] [place] [id number] [place] [address] Jul, Bipolar 1 disorder, mixed F3 1.60 [place] [address] Jul, Bipolar 1 disorder, mixed F3 1.60 [place] [address] 10 Jul, 2016 Bipolar 1 disorder, mixed F3 1.60 [place] [address] 08 Jul, 2016 Cervicalgia M54.2 ; Tremor R 25.1 ; Hearing abnormally acute, unspecified laterality H93.239 ; Alopecia L65.9 ; Encounter for immunization Z23 and Family history of thyroid disease Z83.49 [place] [address] Jul, Bipolar 1 disorder, mixed F3 1.60 [place] [address] [place] [address] Jun, [place] [address] Jun, Hearing disorder, unspecifie d laterality H93.299 [place] [address] Jun, Bipolar 1 disorder, mixed F3 1.60 [place] [address] [place] [address] Jun, Bipolar 1 disorder, mixed F3 1.60 [place] [address] [address] Jun, Allergic rhinitis J30.9 [place] [address] [place] [id number] Jun, Bipolar 1 disorder, mixed F3 1.60 [place] [address] [address] Jun, Bipolar 1 disorder, mixed F3 1.60 [facility] [address] [id number] [address] [place] [address] Jun, Allergic rhinitis J30.9 [facility] [address] [id number] [address] [place] [address] Jun, Allergic rhinitis J30.9 [facility] [address] [id number] [address] [place] [address] Jun, Bipolar 1 disorder, mixed F3 1.60 [facility] [address] [id number] [address] [place] [address] May, Bipolar 1 disorder, mixed F3 1.60 [facility] [address] [id number] [address] [place] [address] May, Bipolar 1 disorder, mixed F3 1.60 [facility] [address] [id number] [address] [place] [address] May, [facility] [address] [id number] [address] [place] [address] May, Bipolar 1 disorder, mixed F3 1.60 [facility] [address] [id number] [address] [place] [address] May, Bipolar 1 disorder, mixed F3 1.60 [facility] [address] [id number] [address] [place] [address] May, [facility] [address] [id number] [address] [place] [address] May, [facility] [address] [id number] [address] [place] [address] May, [facility] [address] [id number] [address] [place] [address] May, Abdominal pain, unspecified location R10.9 [facility] [address] [facility] [id number] [address] [place] [address] May, [facility] [address] [address] Apr, Hematuria R31.9 ; Ataxia R27 .0 and Hearing loss, unspecified laterality H91.90 [place] [address] [address] Apr, Bipolar 1 disorder, mixed F3 1.60 [facility] [address] [address] Apr, Acute effusion of both middl e ears H65.193 [place] [address] [address] Apr, Hematuria R31.9 and Pyelonep hritis N12 [place] [address] [address] Apr, [place] [address] [address] Mar, Bipolar 1 disorder, mixed F3 1.60 [place] [address] [address] Mar, [place] [address] [place] [address] Mar, Bipolar 1 disorder, mixed F3 1.60 [place] [address] [address] Mar, Bipolar 1 disorder, mixed F3 1.60 [place] [address] [place] [address] Mar, Encounter for immunization Z 23 and Gastritis without bleeding, unspecified chronicity, unspecified gastritis type K29.70 [place] [address] [address] Mar, Bipolar 1 disorder, mixed F3 1.60 and Grief F43.20 [place] [address] [address] Mar, Gastritis without bleeding, unspecified chronicity, unspecified gastritis type K29.70 [facility] [address] [place] [id number] [address] [place] [address] Mar, Bipolar 1 disorder, mixed F3 1.60 [place] [address] [place] [id number] [address] [place] [address] Mar, Gastritis without bleeding, unspecified chronicity, unspecified gastritis type K29.70 [facility] [address] [place] [address] Mar, [place] [address] [place] [address] Feb, Bipolar 1 disorder, mixed F3 1.60 [place] [address] [place] [address] Feb, Bipolar 1 disorder, mixed F3 1.60 and Grief F43.20 [place] [address] [address] Feb, Gastritis without bleeding, unspecified chronicity, unspecified gastritis type K29.70 [place] [address] [address] 14 Feb, 2016 Bipolar 1 disorder, mixed F3 1.60 [facility] [address] [place] [id number] [address] [place] [address] 09 Feb, 2016 Gastroesophageal reflux dise ase, esophagitis presence not specified K21.9 [facility] [address] [place] [id number] [address] [place] [address] Jan, Bipolar 1 disorder, mixed F3 1.60 [place] [address] [address] Jan, Bipolar 1 disorder, mixed F3 1.60 and Unsteady gait R26.81 [place] [address] [place] [id number] [address] [place] [address] Jan, Bipolar 1 disorder, mixed F3 1.60 [facility] [address] [place] [id number] [address] [place] [address] Jan, Bipolar 1 disorder, mixed F3 1.60 and Other group home (current) drug therapy Z79.899 [facility] [address] [facility]] [id number] [address] [place] [address] Jan, Bipolar 1 disorder, mixed F3 1.60 [place] [address] [place] [id number] [address] [place] [address] Jan, Bipolar 1 disorder, mixed F3 1.60 [place] [address] [place] [id number] [address] [place] [address] Jan, Bipolar 1 disorder, mixed F3 1.60 ; Grief F43.20 and 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 [place] [address] [place] [id number] [address] [place] [address] Jan, Bipolar 1 disorder, mixed F3 1.60 [place] [address] [place] [id number] [address] [place] [address] Dec, [place] [address] [place] [id number] [address] [place] [address] Dec, Bipolar 1 disorder, mixed F3 1.60 ; Vitamin D deficiency, unspecified E55.9 ; H/O allergic rhinitis Z87.09 ; Other chronic pain G89.29 and Dorsalgia, unspecified M54.9 [place] [address] [place] [id number] [address] [place] [address] Dec, [place] [address] [place] [id number] [address] [place] [address] Dec, Bipolar 1 disorder, mixed F3 1.60 [place] [address] [place] [id number] [address] [place] [address] Dec, Major depressive disorder, r ecurrent episode, moderate F33.1 [place] [address] [place] [id number] [address] [place] [address] Dec, Major depressive disorder, r ecurrent episode, moderate F33.1 [facility] [address] [facility]] [id number] [address] [place] [address] Nov, [place] [address] [address] [facility]] [id number] [address] [place] [address] Nov, Bipolar 1 disorder, mixed F3 1.60 [place] [address] [address] [facility]] [id number] [address] [place] [address] Nov, Major depressive disorder, r ecurrent episode, moderate F33.1 [place] [address] [address] [facility]] [id number] [address] [place] [address] Nov, Cervicalgia M54.2 ; Arthralg ia of hip, unspecified laterality M25.559 ; Allergic rhinitis J30.9 and Hormone replacement therapy Z79.890 [facility] [address] [facility] 3] [id number] [address] [place] [address] Nov, Other seasonal allergic rhin itis J30.2 [place] [address] [address] [facility]] [id number] [address] [place] [address] October, Major depressive disorder, r ecurrent episode, moderate F33.1 [place] [address] [address] [facility]] [id number] [address] [place] [address] October, Major depressive disorder, r ecurrent episode, moderate F33.1 and Arthralgia of hip, unspecified laterality M25.559 [place] [address] [address] [facility]] [id number] [address] [place] [address] October, Grief F43.20 ; Hypertension I10 ; Hyperlipidemia, unspecified hyperlipidemia type E78.5 ; Other chronic pain G89.29 and Allergic rhinitis, unspecified allergic rhinitis type J30.9 [place] [address] [address] [facility]] [id number] [address] [place] [address] October, Major depressive disorder, r ecurrent episode, moderate F33.1 [place] [address] [address] [facility] 3] [id number] [address] [place] [address] Sep, Major depressive disorder, r ecurrent episode, moderate F33.1 [facility] [address] [id number] [address] [place] [address] Sep, [facility] [address] [id number] [address] [place] [address] Sep, Major depressive disorder, r ecurrent episode, moderate F33.1 [facility] [address] [facility] 3] [id number] [address] [place] [address] Sep, Grief F43.20 [facility] [address] [id number] [address] [place] [address] Aug, Major depressive disorder, r ecurrent episode, moderate F33.1 [place] [address] [address] [facility] 3] [id number] [address] [place] [address] Aug, Bipolar 1 disorder, 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9 and Tobacco 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 [facility] [address] [facility] 3] [id number] [address] [place] [address] Aug, [facility] [address] [facility] 3] [id number] [address] [place] [address] Aug, Depressive disorder, not els ewhere classified F32.9 ; Hormone replacement therapy Z79.[address] scan, head R93.0 [facility] [address] [facility] 3] [id number] [address] [place] [address] Aug, Major depressive disorder, r ecurrent episode, moderate F33.1 [facility] [address] [id number] [address] [place] [address] 17 Jul, 2015 Major depressive disorder, r ecurrent episode, moderate F33.1 [facility] [address] [id number] [address] [place] [address] 17 Jul, 2015 Abdominal pain R10.9 and Hyp ertension I10 [facility] [address] [id number] [address] [place] [address] 08 Jul, 2015 [facility] [address] [id number] [address] [place] [address] 05 Jul, 2015 Major depressive disorder, r ecurrent episode, moderate F33.1 [facility] [address] [id number] [address] [place] [address] 04 Jul, 2015 [facility] [address] [facility] 3] [id number] [address] [place] [address] Jul, [facility] [address] [id number] [address] [place] [address] Jun, [facility] [address] [facility] 3] [id number] [address] [place] [address] Jun, Depressive disorder, not els ewhere classified F32.9 [facility] [address] [facility] 3] [id number] [address] [place] [address] Jun, [facility] [address] [facility] 3] [id number] [address] [place] [address] Jun, [facility] [address] [facility] 3] [id number] [address] [place] [address] Jun, Arthralgia of hip, unspecifi ed laterality M25.559 ; Bruising, spontaneous R23.3 and Night sweats R61 [facility] [address] [id number] [address] [place] [address] Jun, [facility] [address] [facility] 3] [id number] [address] [place] [address] Jun, [facility] [address] [id number] [address] [place] [address] May, [facility] [address] [id number] [address] [place] [address] May, Myalgia M79.1 and Screening, lipid Z13.220 [facility] [address] [facility]] [id number] [address] [place] [address] Apr, Status post cervical spinal fusion Z98.1 ; Fibromyalgia M79.7 and Unsteady gait R26.81 [facility] [address] [id number] [address] [place] [address] Nov, [facility] [address] [id number] [address] [place] [address] Nov, [facility] [address] [facility]] [id number] [address] [place] [address] October, [facility] [address] [id number] [address] [place] [address] October, [facility] [address] [facility]] [id number] [address] [place] [address] October, [facility] [address] [facility]] [id number] [address] [place] [address] October, [facility] [address] [facility] 3] [id number] [address] [place] [address] October, [facility] [address] [facility]] [id number] [address] [place] [address] October, Dysuria 788.1 ; Nausea 787.0 2 and Urinary tract infection 599.0 [facility] [address] [id number] [address] [place] [address] 14 Sep, 2014 [facility] [address] [facility]] [id number] [address] [place] [address] Sep, [facility] [address] [id number] [facility] [place] [address] 25 Aug, 2014 [facility] [address] [id number] [address] [place] [address], [place] [address] 25 Aug, 2014 [facility] [address] [id number] [address] [place] [address], [place] [address] 24 Aug, 2014 [facility] [address] [id number] [address] [place] [address], [place] [address] 24 Aug, 2014 [facility] [address] [id number] [address] [place] [address], [place] [address] 23 Aug, 2014 [facility] [address] [id number] [address] [place] [address], [place] [address] 19 Aug, 2014 [facility] [address] [id number] [address] [place] [address], [place] [address] 19 Aug, 2014 [facility] [address] [id number] [address] [place] [address], [place] [address] 19 Aug, 2014 [facility] [address] [id number] [address] [place] [address], [place] [address] 19 Aug, 2014 [facility] [address] [id number] [address] [place] [address], [place] [address] 18 Aug, 2014 [facility] [address] [id number] [address] [place] [address], [place] [address] 18 Aug, 2014 [facility] [address] [id number] [address] [place] [address], [place] [address] 13 Aug, 2014 [facility] [address] [id number] [address] [place] [address], [place] [address] 13 Aug, 2014 [facility] [address] [id number] [address] [place] [address], [place] [address] 11 Aug, 2014 [facility] [address] [id number] [address] [place] [address], [place] [address] 11 Aug, 2014 [facility] [address] [id number] [address] [place] [address], [place] [address] 06 Aug, 2014 [facility] [address] [id number] [address] [place] [address], [place] [address] Aug, 2014 [facility] [address] [id number] [address] [place] [address], [place] [address] Aug, 2014 [facility] [address] [id number] [address] [place] [address], [place] [address] Aug, 2014 [facility] [address] [id number] [address] [place] [address], [place] [address] Aug, 2014 [facility] [address] [id number] [address] [place] [address], [place] [address] Aug, [facility] [address] [id number] [address] [place] [address], [place] [address] Aug, [facility] [address] [id number] [address] [place] [address], [place] [address] Jul, [facility] [address] [id number] [address] [place] [address], [place] [address] Jul, 2014 [facility] [address] [id number] [address] [place] [address], [place] [address] Jul, [facility] [address] [id number] [address] [place] [address], [place] [address] Jul, 2014 [facility] [address] [id number] [address] [place] [address], [place] [address] Jul, [facility] [address] [id number] [address] [place] [address], [place] [address] Jul, 2014 [facility] [address] [id number] [address] [place] [address], [place] [address] Jul, 2014 [facility] [address] [id number] [address] [place] [address], [place] [address] Jul, 2014 [facility] [address] [id number] [address] [place] [address], [place] [address] Jul, 2014 [facility] [address] [id number] [address] [place] [address], [place] [address] Jul, 2014 [facility] [address] [id number] [address] [place] [address], [place] [address] Jul, 2014 [facility] [address] [id number] [address] [place] [address], [place] [address] Jul, 2014 [facility] [address] [id number] [address] [place] [address], [place] [address] Jul, 2014 [facility] [address] [id number] [address] [place] [address], [place] [address] Jul, 2014 [facility] [address] [id number] [address] [place] [address], [place] [address] Jun, [facility] [address] [id number] [address] [place] [address], [place] [address] Jun, [facility] [address] [id number] [address] [place] [address], [place] [address] Jun, [facility] [address] [id number] [address] [place] [address], [place] [address] Jun, [facility] [address] [id number] [address] [place] [address], [place] [address] Jun, [facility] [address] [id number] [address] [place] [address], [place] [address] Jun, [facility] [address] [id number] [address] [place] [address], [place] [address] May, [facility] [address] [id number] [address] [place] [address], [place] [address] May, [facility] [address] [id number] [address] [place] [address], [place] [address] May, [facility] [address] [id number] [address] [place] [address], [place] [address] May, [facility] [address] [id number] [address] [place] [address], [place] [address] May, [facility] [address] [id number] [address] [place] [address], [place] [address] May, [facility] [address] [id number] [address] [place] [address], [place] [address] Apr, [facility] [address] [id number] [address] [place] [address], [place] [address] Apr, [facility] [address] [id number] [address] [place] [address], [place] [address] Apr, [facility] [address] [id number] [address] [place] [address], [place] [address] Apr, [facility] [address] [id number] [address] [place] [address], [place] [address] Apr, [facility] [address] [id number] [address] [place] [address], [place] [address] Apr, [facility] [address] [id number] [address] [place] [address], [place] [address] Mar, [facility] [address] [id number] [address] [place] [address], [place] [address] Mar, [facility] [address] [id number] [address] [place] [id number] Mar, [facility] [address] [id number] [address] [place] [id number] Mar, [facility] [address] [id number] [address] [place] [id number] Mar, [facility] [address] [id number] [address] [place] [id number] Mar, [facility] [address] [id number] [address] [place] [id number] Mar, [facility] [address] [id number] [address] [place] [address] Mar, [facility] [address] [id number] [address] [place] [address] Mar, [facility] [address] [id number] [address] [place] [address], [place] [address] Mar, [facility] [address] [id number] [address] [place] [address], [place] [address] Mar, [facility] [address] [id number] [address] [place] [address], [place] [address] Mar, [facility] [address] [id number] [address] [place] [address], [place] [address] 30 Feb, 2014 [facility] [address] [id number] [address] [place] [address], [place] [address] 29 Feb, 2014 [facility] [address] [id number] [address] [place] [address], [place] [address] 29 Feb, 2014 [facility] [address] [id number] [address] [place] [address], [place] [address] Feb, [facility] [address] [id number] [address] [place] [address], [place] [address] Feb, [facility] [address] [id number] [address] [place] [address], [place] [address] Feb, [facility] [address] [id number] [address] [place] [address], [place] [address] Feb, [facility] [address] [id number] [address] [place] [address], [place] [address] Jan, [facility] [address] [id number] [address] [place] [address], [place] [address] Jan, [facility] [address] [id number] [address] [place] [address], [place] [address] Jan, [facility] [address] [id number] [address] [place] [address], [place] [address] Dec, [facility] [address] [id number] [address] [place] [address], [place] [address] Dec, [facility] [address] [id number] [facility] [place] [address] Dec, [facility] [address] [id number] [address] [place] [address], [place] [address] Dec, [facility] [address] [id number] [address] [place] [address], [place] [address] Sep, [facility] [address] [id number] [address] [place] [address], [place] [address] Sep, [facility] [address] [id number] [address] [place] [address], [place] [address] Sep, [facility] [address] [id number] [address] [place] [address], [place] [address] Sep, [facility] [address] [id number] [address] [place] [address], [place] [address] Sep, [facility] [address] [id number] [address] [place] [address], [place] [address] Sep, [facility] [address] [id number] [address] [place] [address], [place] [address] Sep, [facility] [address] [id number] [address] [place] [address], [place] [address] Sep, [facility] [address] [id number] [address] [place] [address], [place] [address] Aug, [facility] [address] [id number] [address] [place] [address], [place] [address] Aug, [facility] [address] [id number] [address] [place] [address], [place] [address] May, [facility] [address] [id number] [address] [place] [address], [place] [address] May, [facility] [address] [id number] [address] [place] [address], [place] [address] Apr, [facility] [address] [id number] [address] [place] [address] [address] Apr, [facility] [address] [id number] [address] [place] [address], [place] [address] Apr, [facility] [address] [id number] [address] [place] [address], [place] [address] Apr, [facility] [address] [id number] [address] [place] [address], [place] [address] Apr, [facility] [address] [id number] [address] [place] [address], [place] [address] Apr, [facility] [address] [id number] [address] [place] [address], [place] [address] May, [facility] [address] [id number] [address] [place] [address], [place] [address] 18 May, 2012 [facility] [address] [id number] [address] [place] [address], [place] [address] 15 May, 2012 [facility] [address] [id number] [address] [place] [address], [place] [address] 15 May, 2012 [facility] [address] [id number] [address] [place] [address], [place] [address] May, [facility] [address] [id number] [address] [place] [address], [place] [address] May, [facility] [address] [id number] [address] [place] [address], [place] [address] Apr, [facility] [address] [id number] [address] [place] [address], [place] [address] Apr, [facility] [address] [id number] [address] [place] [address], [place] [address] Apr, [facility] [address] [id number] [address] [place] [address], [place] [address] Apr, [facility] [address] [id number] [address] [place] [address], [place] [address] Apr, [facility] [address] [id number] [address] [place] [address], [place] [address] 08 Apr, 2012 [facility] [address] [id number] [address] [place] [address], [place] [address] 07 Apr, 2012 [facility] [address] [id number] [address] [place] [address], [place] [address] Apr, [facility] [address] [id number] [address] [place] [address], [place] [address] 07 Apr, 2012 [facility] [address] [id number] [address] [place] [address], [place] [address] Apr, [facility] [address] [id number] [address] [place] [address], [place] [address] Mar, [facility] [address] [id number] [address] [place] [address], [place] [address] Mar, [facility] [address] [id number] [address] [place] [address], [place] [address] Mar, [facility] [address] [id number] [address] [place] [address], [place] [address] Mar, [facility] [address] [id number] [address] [place] [address], [place] [address] Mar, [facility] [address] [id number] [address] [place] [address] Mar, [facility] [address] [id number] [address] [place] [address], [place] [address] Mar, [facility] [address] [id number] [address] [place] [address] Mar, [facility] [address] [id number] [address] [place] [address], [place] [address] Mar, [facility] [address] [id number] [address] [place] [address] 25 Feb, 2012 [facility] [address] [id number] [address] [place] [address] 16 Feb, 2012 [facility] [address] [id number] [address] [place] [address], [place] [address] Feb, [facility] [address] [id number] [address] [place] [address], [place] [address] Jan, [facility] [address] [id number] [address] [place] [address], [place] [address] Jan, [facility] [address] [id number] [address] [place] [address], [place] [address] Jan, [facility] [address] [id number] [address] [place] [address], [place] [address] Jan, [facility] [address] [id number] [address] [place] [address], [place] [address] Jan, [facility] [address] [id number] [address] [place] [address], [place] [address] Jan, [facility] [address] [id number] [address] [place] [address], [place] [address] Jan, [facility] [address] [id number] [address] [place] [address], [place] [address] Jan, [facility] [address] [id number] [address] [place] [address], [place] [address] Jan, [facility] [address] [id number] [address] [place] [address], [place] [address] Jan, [facility] [address] [id number] [address] [place] [address], [place] [address] Dec, [facility] [address] [id number] [address] [place] [address], [place] [address] Dec, [facility] [address] [id number] [address] [place] [address], [place] [address] Dec, [facility] [address] [id number] [address] [place] [address], [place] [address] Dec, [facility] [address] [id number] [address] [place] [address], [place] [address] Nov, [facility] [address] [id number] [address] [place] [address], [place] [address] Nov, [facility] [address] [id number] [address] [place] [address], [place] [address] Nov, [facility] [address] [id number] [address] [place] [address], [place] [address] October, [facility] [address] [id number] [address] [place] [address], [place] [address] October, [facility] [address] [id number] [address] [place] [address], [place] [address] October, [facility] [address] [id number] [address] [place] [address], [place] [address] October, [facility] [address] [id number] [address] [place] [address], [place] [address] October, [facility] [address] [id number] [address] [place] [address], [place] [address] October, [facility] [address] [id number] [address] [place] [address], [place] [address] Aug, [facility] [address] [id number] [address] [place] [address], [place] [address] Mar, [facility] [address] [id number] [address] [place] [address], [place] [address] Nov, [facility] [address] [id number] [address] [place] [address], [place] [address] May, [facility] [address] [id number] [address] [place] [address], [place] [address] May, [facility] [address] [id number] [address] [place] [address], [place] [address] Apr, [facility] [address] [id number] [address] [place] [address], [place] [address] 15 Mar, 2010 [facility] [address] [id number] [address] [place] [address] 15 Mar, 2010 IMMUNIZATIONS No Known Immunizations SOCIAL HISTORY Never Assessed REASON FOR VISIT f/u PLAN OF CARE Activity Details Follow Up 2 Weeks Reason: F/U VITAL SIGNS MEDICATIONS Unknown Medications RESULTS No Results PROCEDURES Procedure Date Ordered Result Body Site COUNT INCLUDES THE [facility] VISIT MENTAL HEALTH ESTAB PT Feb 28, 2018 Psychotherapy, patient &/family, 45 minutes, established pat ient Feb 28, 2018 INSTRUCTIONS MEDICATIONS ADMINISTERED No Known Medications [...]
--- OUTSIDE RECORDS SUMMARY | 2019-06-19 05:57 | XMS REPORT ---
Author Author Sydnie HANCOCK [facility] Address [address] [place] [address] Care Team Providers Care Community Development Specialist Name Role Phone NAHOMY HANCOCK Unavailable PROBLEMS Type Condition ICD9-CM Code SDD53-BI Code Onset Dates Condition S tatus SNOMED Code Problem Hormone replacement therapy Z79.890 Ac tive 584868736 Problem Abnormal CT scan, head R93.0 Active 270981165 Problem Sensorineural hearing loss (SNHL) of both ears H90 .3 Active 797188984 Problem History of colon polyps Z86.010 Active 064392670 Problem Bruising, spontaneous R23.3 Active 622667452 Problem Generalized anxiety disorder F41.1 A ctive 16039712 Problem Arthralgia of hip, unspecified laterality M25.559 Active 18522206 Problem Hematuria, unspecified type R31.9 Ac tive 89734572 Problem Imbalance R26.89 Active 583980739 Problem Hammer toe of right foot M20.41 Activ e 878823257 Problem Plantar wart of right foot B07.0 Act mitchell [id number] Problem Sciatica of left side M54.32 Active 75724872 Problem Hyperlipidemia, unspecified hyperlipidemia type E7 8.5 Active 85450942 Problem Hypertension I10 Active 3405117 3 Problem Night sweats R61 Active 6430828 0 Problem Fibromyalgia M79.7 Active 3845709 7 Problem Major depressive disorder, recurrent episode, moderate F33.1 Active 789748316 Problem Acute left-sided low back pain with left-sided sciatica M54.42 Active 022870566 Problem Bladder spasm N32.89 Active 099545 006 Problem Gastritis without bleeding, unspecified chronicity, unspecified gastritis type K29.70 Active 531452920 Problem Bipolar 1 disorder, mixed F31.60 Acti ve 31581808 Problem Grief F43.20 Active 53280916 Problem Other chronic pain G89.29 Active 8 2080806 Problem Allergic rhinitis J30.9 Active 61 373452 Problem Hot flashes due to menopause N95.1 A ctive 323487875 Problem Ataxia R27.0 Active 85767966 Problem Hearing loss, unspecified laterality H91.90 Active 00150271 ALLERGIES No Information ENCOUNTERS Encounter Location Date Diagnosis [facility] [address] [id number] [address] [place] [phone] Apr, [facility] [address] [id number] [address] [place] [phone] Mar, [facility] [address] [facility] [id number] [address] [place] [phone] Mar, [facility] [address] [facility] [id number] [address] [place] [phone] Mar, [facility] [address] [facility] [id number] [address] [place] [phone] Mar, [facility] [address] [facility] [id number] [address] [place] [phone] 27 Feb, 2018 Bipolar 1 disorder, mixed F3 1.60 [facility] [address] [facility] [id number] [address] [place] [phone] 26 Feb, 2018 Allergic rhinitis J30.9 [facility] [address] [facility] [id number] [address] [place] [phone] 24 Feb, 2018 Bipolar 1 disorder, mixed F3 1.60 [facility] [address] [id number] [address] [place] [phone] 20 Feb, 2018 Bipolar 1 disorder, mixed F3 1.60 and Generalized anxiety disorder F41.1 [facility] [address] [id number] [address] [place] [phone] 13 Feb, 2018 Bipolar 1 disorder, mixed F3 1.60 [facility] [address] [facility] [id number] [address] [place] [phone] 11 Feb, 2018 Allergic rhinitis J30.9 [facility] [address] [facility] [id number] [address] [place] [phone] Feb, [facility] [address] [place] [id number] [address] [place] [phone] Jan, Bipolar 1 disorder, mixed F3 1.60 [facility] [address] [place] [id number] [address] [place] [phone] Jan, Low back pain M54.5 ; Hyperl ipidemia, unspecified hyperlipidemia type E78.5 and Bipolar 1 disorder, mixed F31.60 [facility] [address] [place] [id number] [address] [place] [phone] Jan, Bipolar 1 disorder, mixed F3 1.60 [facility] [address] [place] [phone] Jan, Bipolar 1 disorder, mixed F3 1.60 [facility] [address] [phone] Jan, Bipolar 1 disorder, mixed F3 1.60 [facility] [address] [place] [id number] [address] [place] [phone] Jan, Bipolar 1 disorder, mixed F3 1.60 [facility] [address] [phone] Dec, Bipolar 1 disorder, mixed F3 1.60 ; Generalized anxiety disorder F41.1 and Other penitentiary (current) drug therapy Z79.899 [facility] [address] [place] [id number] [address] [place] [phone] Dec, 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 [id number] [address] [place] [phone] 27 Nov, 2017 Bipolar 1 disorder, mixed F3 1.60 [facility] [address] [facility] [id number] [address] [place] [phone] Nov, Bipolar 1 disorder, mixed F3 1.60 [facility] [address] [place] [id number] [place] [phone] Nov, Allergic rhinitis J30.9 [facility] [address] [facility] [id number] [address] [place] [phone] Nov, Allergic rhinitis J30.9 [place] [address] [facility] [id number] [address] [place] [phone] Nov, [facility] [address] [place] [id number] [place] [phone] Nov, Bipolar 1 disorder, mixed F3 1.60 [place] [id number] [place] [phone] Nov, Fibromyalgia M79.7 and Aller gic rhinitis J30.9 [place] [address] [place] [id number] [place] [phone] October, Bipolar 1 disorder, mixed F3 1.60 [facility] [address] [place] [id number] [address] [place] [phone] October, Acute nasopharyngitis J00 [facility] [address] [place] [id number] [address] [place] [phone] October, Bitten or stung by nonvenomo us insect and other nonvenomous arthropods, initial encounter W57.XXXA and Insect bite (nonvenomous) of abdominal wall, initial encounter S30.861A [facility] [address] [facility] [id number] [address] [place] [phone] October, Insect bite (nonvenomous) of abdominal wall, initial encounter S30.861A ; Bitten or stung by nonvenomous insect and other nonvenomous arthropods, initial encounter W57.XXXA ; Allergic rhinitis J30.9 and Low back pain M54.5 [facility] [address] [facility] [id number] [address] [place] [phone] October, Bipolar 1 disorder, mixed F3 1.60 [facility] [address] [place] [id number] [place] [phone] October, [facility] [address] [place] [id number] [place] [phone] October, [facility] [address] [facility] [id number] [address] [place] [phone] October, Bipolar 1 disorder, mixed F3 1.60 [facility] [address] [place] [id number] [address] [place] [phone] Sep, Bipolar 1 disorder, mixed F3 1.60 [facility] [address] [place] [id number] [address] [place] [phone] Sep, Other chronic pain G89.29 [facility] [address] [place] [id number] [address] [place] [phone] Sep, [facility] [address] [place] [id number] [place] [phone] Sep, Bipolar 1 disorder, mixed F3 1.60 [facility] [address] [place] [id number] [address] [place] [phone] Sep, Allergic rhinitis J30.9 and Sciatica of left side M54.32 [facility] [address] [place] [id number] [address] [place] [phone] Sep, Bipolar 1 disorder, mixed F3 1.60 [facility] [address] [place] [id number] [address] [place] [phone] Sep, Bipolar 1 disorder, mixed F3 1.60 and Generalized anxiety disorder F41.1 [facility] [address] [place] [id number] [address] [place] [phone] Aug, [facility] [address] [facility] [id number] [address] [place] [phone] Aug, Bipolar 1 disorder, mixed F3 1.60 [facility] [address] [facility] [id number] [address] [place] [phone] Aug, Bipolar 1 disorder, mixed F3 1.60 [facility] [address] [facility] [id number] [address] [place] [phone] Aug, [facility] [address] [facility] [id number] [address] [place] [phone] Aug, Generalized anxiety disorder F41.1 [facility] [address] [facility] [id number] [address] [place] [phone] Aug, Bipolar 1 disorder, mixed F3 1.60 [facility] [address] [facility] [id number] [address] [place] [phone] Aug, Plantar wart of right foot B 07.0 [facility] [address] [facility] [id number] [address] [place] [phone] Aug, Bipolar 1 disorder, mixed F3 1.60 [facility] [address] [facility] [id number] [address] [place] [phone] Jul, Bipolar 1 disorder, mixed F3 1.60 [facility] [address] [facility] [id number] [address] [place] [phone] Jul, [facility] [address] [facility] [id number] [address] [place] [phone] 14 Jul, 2017 Bipolar 1 disorder, mixed F3 1.60 [facility] [address] [facility] [id number] [address] [place] [phone] 09 Jul, 2017 Generalized anxiety disorder F41.1 [facility] [address] [facility] [id number] [address] [place] [phone] 07 Jul, 2017 Bipolar 1 disorder, mixed F3 1.60 [facility] [address] [facility] [id number] [address] [place] [phone] 07 Jul, 2017 Acute left-sided low back pa in with left-sided sciatica M54.42 [place] [address] [place] [id number] [address] [place] [phone] 05 Jul, 2017 Coccydynia M53.3 [place] [address] [place] [id number] [place] [phone] Jun, Bipolar 1 disorder, mixed F3 1.60 [facility] [address] [place] [id number] [address] [place] [phone] Jun, Acute nasopharyngitis J00 [place] [address] [address] Jun, Bipolar 1 disorder, mixed F3 1.60 [place] [address] [address] Jun, Fibromyalgia M79.7 [place] [address] [address] Jun, Bipolar 1 disorder, mixed F3 1.60 [place] [address] [address] Jun, Fibromyalgia M79.7 and Bipol ar 1 disorder, mixed F31.60 [place] [address] [place] [id number] [address] [place] [phone] May, Bipolar 1 disorder, mixed F3 1.60 ; Generalized anxiety disorder F41.1 and Other penitentiary (current) drug therapy Z79.899 [place] [address] [place] [id number] [address] [place] [phone] May, Bipolar 1 disorder, mixed F3 1.60 [facility] [address] [place] [id number] [address] [place] [phone] 14 May, 2017 Cough R05 and Body aches R52 [facility] [address] [place] [id number] [address] [place] [phone] May, Bladder spasm N32.89 and Acu te cystitis without hematuria N30.00 [place] [address] [address] 07 May, 2017 Bipolar 1 disorder, mixed F3 1.60 [facility] [address] [phone] 30 Apr, 2017 [place] [address] [address] Apr, Major depressive disorder, r ecurrent episode, moderate F33.1 and Encounter for immunization Z23 [place] [address] [address] Apr, Bipolar 1 disorder, mixed F3 1.60 [place] [address] [address] Apr, Bipolar 1 disorder, mixed F3 1.60 [place] [address] [address] Apr, Bipolar 1 disorder, mixed F3 1.60 [place] [address] [address] Apr, Yeast vaginitis B37.3 [place] [address] [phone] 09 Apr, 2017 Bipolar 1 disorder, mixed F3 1.60 [facility] [address] [address] 07 Apr, 2017 [address]ulitis L03[address] for immunization Z23 [place] [address] [address] Apr, Bipolar 1 disorder, mixed F3 1.60 [facility] [address] [address] Mar, Bipolar 1 disorder, mixed F3 1.60 [place] [address] [address] Mar, Bipolar 1 disorder, mixed F3 1.60 [place] [address] [address] Mar, Imbalance R26.89 [address] Encount er for immunization Z23 [place] [address] [place] [id number] [place] [phone] Mar, Generalized anxiety disorder F41.1 [place] [address] [address] Mar, Bipolar 1 disorder, mixed F3 1.60 [place] [address] [address] Mar, Generalized anxiety disorder F41.1 [place] [address] [address] Mar, Bipolar 1 disorder, mixed F3 1.60 [place] [address] [address] Mar, Bipolar 1 disorder, mixed F3 1.60 [place] [address] [address] Feb, Bipolar 1 disorder, mixed F3 1.60 [place] [address] [address] Feb, Bipolar 1 disorder, mixed F3 1.60 and Generalized anxiety disorder F41.1 [place] [address] [address] Feb, Gastritis without bleeding, unspecified chronicity, unspecified gastritis type K29.70 ; Hammer toe of right foot M20.41 and Other viral warts B07.8 [place] [address] [place] [id number] [place] [phone] Feb, Bipolar 1 disorder, mixed F3 1.60 [place] [address] [address] Feb, Bipolar 1 disorder, mixed F3 1.60 [facility] [address] [facility] [id number] [address] [place] [phone] 05 Feb, 2017 Bipolar 1 disorder, mixed F3 1.60 [facility] [address] [place] [id number] [address] [place] [phone] Jan, Encounter for screening mamm ogram for breast cancer Z12.31 ; Other viral warts B07.8 and Allergic rhinitis J30.9 [facility] [address] [facility] [id number] [address] [place] [phone] Jan, Bipolar 1 disorder, mixed F3 1.60 [place] [address] [place] [id number] [place] [phone] Jan, Bipolar 1 disorder, mixed F3 1.60 [place] [address] [place] [id number] [place] [phone] Jan, [place] [address] [place] [id number] [place] [phone] Jan, Bipolar 1 disorder, mixed F3 1.60 [facility] [address] [place] [id number] [place] [phone] Jan, Bipolar 1 disorder, mixed F3 1.60 [place] [address] [place] [id number] [place] [phone] Jan, Allergic rhinitis J30.9 ; He maturia R31.9 and Colon cancer screening Z12.11 [facility] [address] [place] [id number] [address] [place] [phone] Dec, Bipolar 1 disorder, mixed F3 1.60 [place] [id number] [place] [id number] [place] [phone] 18 Dec, 2016 Bipolar 1 disorder, mixed F3 1.60 ; Generalized anxiety disorder F41.1 and 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 [id number] [address] [place] [phone] Dec, Bipolar 1 disorder, mixed F3 1.60 [facility] [address] [facility] [id number] [address] [place] [phone] Dec, Bipolar 1 disorder, mixed F3 1.60 [facility] [address] [facility] [id number] [address] [place] [phone] Dec, Low back pain M54.5 and Recu rrent urinary tract infection N39.0 [facility] [address] [facility] [id number] [address] [place] [phone] Nov, Bipolar 1 disorder, mixed F3 1.60 [facility] [address] [facility] [id number] [address] [place] [phone] Nov, Bipolar 1 disorder, mixed F3 1.60 [facility] [address] [facility] [id number] [address] [place] [phone] Nov, Bipolar 1 disorder, mixed F3 1.60 [facility] [address] [facility] [id number] [address] [place] [phone] Nov, Bipolar 1 disorder, mixed F3 1.60 [facility] [address] [facility] [id number] [address] [place] [phone] Nov, [facility] [address] [facility] [id number] [address] [place] [phone] Nov, Anesthesia of skin R20.0 ; F requent UTI N39.0 ; Tobacco abuse Z72.0 and Colon cancer screening Z12.11 [facility] [address] [facility] [facility] [id number] [address] [place] [phone] Nov, Bipolar 1 disorder, mixed F3 1.60 [facility] [address] [facility] [id number] [address] [place] [phone] October, Bipolar 1 disorder, mixed F3 1.60 [facility] [address] [facility] [id number] [address] [place] [phone] October, Bipolar 1 disorder, mixed F3 1.60 [facility] [address] [place] [id number] [place] [phone] October, Bipolar 1 disorder, mixed F3 1.60 [facility] [address] [place] [id number] [place] [phone] October, Bipolar 1 disorder, mixed F3 1.60 [facility] [address] [place] [id number] [place] [phone] October, Bipolar 1 disorder, mixed F3 1.60 [place] [address] [place] [id number] [place] [phone] October, Cervicalgia M54.2 and Bipola r 1 disorder, mixed F31.60 [place] [address] [place] [id number] [place] [phone] October, Hypertension I10 ; Hyperlipi demia, unspecified hyperlipidemia type E78.5 and Family history of thyroid disease Z83.49 [place] [address] [place] [id number] [place] [phone] October, [place] [address] [place] [id number] [place] [phone] October, Hypertension I10 ; Hyperlipi demia, unspecified hyperlipidemia type E78.5 and Family history of thyroid problem Z83.49 [place] [address] [place] [id number] [place] [phone] October, Bipolar 1 disorder, mixed F3 1.60 [place] [address] [place] [id number] [place] [phone] Sep, Bipolar 1 disorder, mixed F3 1.60 [place] [address] [place] [id number] [place] [phone] Sep, Bipolar 1 disorder, mixed F3 1.60 [place] [address] [place] [id number] [place] [phone] Sep, Bipolar 1 disorder, mixed F3 1.60 [facility] [address] [place] [id number] [place] [id number] Sep, History of colon polyps Z86. 010 and Hematochezia K92.1 [facility] [address] [place] [id number] [place] [id number] Sep, Major depressive disorder, r ecurrent episode, moderate F33.1 [facility] [address] [place] [id number] [place] [id number] Sep, Bipolar 1 disorder, mixed F3 1.60 [place] [address] [place] [id number] [place] [id number] Aug, Hot flashes due to menopause N95.1 [place] [address] [place] [id number] [place] [id number] Aug, Bipolar 1 disorder, mixed F3 1.60 [place] [id number] [place] [id number] Aug, [facility] [address] [place] [id number] [place] [id number] Aug, Bipolar 1 disorder, mixed F3 1.60 [place] [address] [place] [id number] [place] [id number] Aug, Bipolar 1 disorder, mixed F3 1.60 [place] [address] [place] [id number] [place] [phone] Aug, Hot flashes due to menopause N95.1 ; Cervicalgia M54.2 and Ataxia R27.0 [place] [address] [place] [id number] [place] [id number] Jul, Bipolar 1 disorder, mixed F3 1.60 [place] [address] [place] [id number] [place] [id number] Jul, Bipolar 1 disorder, mixed F3 1.60 [place] [address] [place] [id number] [place] [address] Jul, Bipolar 1 disorder, mixed F3 1.60 [place] [address] Jul, Bipolar 1 disorder, mixed F3 1.60 [place] [address] Jul, Bipolar 1 disorder, mixed F3 1.60 [place] [address] 08 Jul, 2016 Cervicalgia M54.2 ; Tremor R 25.1 ; Hearing abnormally acute, unspecified laterality H93.239 ; Alopecia L65.9 ; Encounter for immunization Z23 and Family history of thyroid disease Z83.49 [place] [address] Jul, Bipolar 1 disorder, mixed F3 1.60 [place] [address] [place] [address] Jun, [place] [id number] Jun, Hearing disorder, unspecifie d laterality H93.299 [place] [address] [place] [address] Jun, Bipolar 1 disorder, mixed F3 1.60 [place] [address] [place] [id number] Jun, Bipolar 1 disorder, mixed F3 1.60 [place] [address] [id number] Jun, Allergic rhinitis J30.9 [place] [address] [place] [id number] Jun, Bipolar 1 disorder, mixed F3 1.60 [place] [address] [address] Jun, Bipolar 1 disorder, mixed F3 1.60 [facility] [address] [id number] [address] [place] [address] Jun, Allergic rhinitis J30.9 [facility] [address] [id number] [address] [place] [id number] Jun, Allergic rhinitis J30.9 [facility] [address] [id number] [address] [place] [phone] Jun, Bipolar 1 disorder, mixed F3 1.60 [facility] [address] [id number] [address] [place] [phone] May, Bipolar 1 disorder, mixed F3 1.60 [facility] [address] [id number] [address] [place] [id number] May, Bipolar 1 disorder, mixed F3 1.60 [facility] [address] [id number] [address] [place] [id number] May, [facility] [address] [id number] [address] [place] [phone] May, Bipolar 1 disorder, mixed F3 1.60 [facility] [address] [id number] [address] [place] [address] May, Bipolar 1 disorder, mixed F3 1.60 [facility] [address] [id number] [address] [place] [phone] May, [facility] [address] [id number] [address] [place] [id number] May, [facility] [address] [id number] [address] [place] [address] May, [facility] [address] [id number] [address] [place] [address] May, Abdominal pain, unspecified location R10.9 [facility] [address] [id number] [address] [place] [address] May, [facility] [address] [address] Apr, Hematuria R31.9 ; Ataxia R27 .0 and Hearing loss, unspecified laterality H91.90 [facility] [address] [address] Apr, Bipolar 1 disorder, mixed F3 1.60 [facility] [address] [id number] Apr, Acute effusion of both middl e ears H65.193 [place] [address] [address] Apr, Hematuria R31.9 and Pyelonep hritis N12 [place] [address] [phone] Apr, [place] [address] [address] Mar, Bipolar 1 disorder, mixed F3 1.60 [place] [address] [address] Mar, [place] [address] [address] Mar, Bipolar 1 disorder, mixed F3 1.60 [place] [address] [address] Mar, Bipolar 1 disorder, mixed F3 1.60 [place] [address] [place] [address] Mar, Encounter for immunization Z 23 and Gastritis without bleeding, unspecified chronicity, unspecified gastritis type K29.70 [place] [address] [address] Mar, Bipolar 1 disorder, mixed F3 1.60 and Grief F43.20 [place] [address] [address] Mar, Gastritis without bleeding, unspecified chronicity, unspecified gastritis type K29.70 [facility] [id number] [place] [address] Mar, Bipolar 1 disorder, mixed F3 1.60 [place] [address] [place] [id number] [address] [place] [address] Mar, Gastritis without bleeding, unspecified chronicity, unspecified gastritis type K29.70 [place] [address] [address] Mar, [place] [address] [address] Feb, Bipolar 1 disorder, mixed F3 1.60 [place] [address] [place] [address] Feb, Bipolar 1 disorder, mixed F3 1.60 and Grief F43.20 [place] [address] [address] Feb, Gastritis without bleeding, unspecified chronicity, unspecified gastritis type K29.70 [place] [address] [place] [id number] 14 Feb, 2016 Bipolar 1 disorder, mixed F3 1.60 [facility] [address] [place] [id number] [address] [place] [phone] 09 Feb, 2016 Gastroesophageal reflux dise ase, esophagitis presence not specified K21.9 [facility] [address] [place] [id number] [address] [place] [address] Jan, Bipolar 1 disorder, mixed F3 1.60 [place] [address] [address] Jan, Bipolar 1 disorder, mixed F3 1.60 and Unsteady gait R26.81 [place] [address] [place] [id number] [address] [place] [address] Jan, Bipolar 1 disorder, mixed F3 1.60 [facility] [address] [facility] [id number] [address] [place] [address] Jan, Bipolar 1 disorder, mixed F3 1.60 and Other penitentiary (current) drug therapy Z79.899 [facility] [address] [place] [id number] [address] [place] [address] Jan, Bipolar 1 disorder, mixed F3 1.60 [place] [address] [place] [id number] [address] [place] [address] Jan, Bipolar 1 disorder, mixed F3 1.60 [place] [address] [place] [id number] [address] [place] [address] Jan, Bipolar 1 disorder, mixed F3 1.60 ; Grief F43.20 and 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 [place] [address] [place] [id number] [address] [place] [address] Jan, Bipolar 1 disorder, mixed F3 1.60 [place] [address] [place] [id number] [address] [place] [phone] Dec, [place] [address] [place] [id number] [address] [place] [address] Dec, Bipolar 1 disorder, mixed F3 1.60 ; Vitamin D deficiency, unspecified E55.9 ; H/O allergic rhinitis Z87.09 ; Other chronic pain G89.29 and Dorsalgia, unspecified M54.9 [place] [address] [place] [id number] [address] [place] [phone] Dec, [place] [address] [place] [id number] [address] [place] [id number] Dec, Bipolar 1 disorder, mixed F3 1.60 [place] [address] [place] [id number] [address] [place] [phone] Dec, Major depressive disorder, r ecurrent episode, moderate F33.1 [place] [address] [place] [id number] [address] [place] [id number] Dec, Major depressive disorder, r ecurrent episode, moderate F33.1 [facility] [address] [id number] [address] [place] [phone] Nov, [place] [address] [facility] [id number] [address] [place] [address] Nov, Bipolar 1 disorder, mixed F3 1.60 [place] [address] [facility] [id number] [address] [place] [phone] Nov, Major depressive disorder, r ecurrent episode, moderate F33.1 [place] [address] [facility] [id number] [address] [place] [address] Nov, Cervicalgia M54.2 ; Arthralg ia of hip, unspecified laterality M25.559 ; Allergic rhinitis J30.9 and Hormone replacement therapy Z79.890 [facility] [address] [id number] [address] [place] [address] Nov, Other seasonal allergic rhin itis J30.2 [place] [address] [facility] [id number] [address] [place] [address] October, Major depressive disorder, r ecurrent episode, moderate F33.1 [place] [address] [facility] [id number] [address] [place] [phone] October, Major depressive disorder, r ecurrent episode, moderate F33.1 and Arthralgia of hip, unspecified laterality M25.559 [place] [address] [facility] [id number] [address] [place] [phone] October, Grief F43.20 ; Hypertension I10 ; Hyperlipidemia, unspecified hyperlipidemia type E78.5 ; Other chronic pain G89.29 and Allergic rhinitis, unspecified allergic rhinitis type J30.9 [place] [address] [facility] [id number] [address] [place] [address] October, Major depressive disorder, r ecurrent episode, moderate F33.1 [place] [address] [facility] [id number] [address] [place] [phone] Sep, Major depressive disorder, r ecurrent episode, moderate F33.1 [facility] [address] [id number] [address] [place] [phone] Sep, [facility] [address] [facility] [id number] [address] [place] [id number] Sep, Major depressive disorder, r ecurrent episode, moderate F33.1 [facility] [address] [facility] [id number] [address] [place] [phone] Sep, Grief F43.20 [facility] [address] [facility] [id number] [address] [place] [id number] Aug, Major depressive disorder, r ecurrent episode, moderate F33.1 [place] [address] [facility] [id number] [address] [place] [address] Aug, Bipolar 1 disorder, mixed F3 1.60 [place] [address] [facility] [id number] [address] [place] [address] Aug, Allergic rhinitis J30.9 ; Ce rvicalgia M54.2 and Low back pain M54.5 [place] [address] [facility] [id number] [address] [place] [phone] Aug, Major depressive disorder, r ecurrent episode, moderate F33.1 [facility] [address] [id number] [address] [place] [address] Aug, Sinusitis J32.9 and Tobacco 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 [facility] [address] [id number] [address] [place] [address] Aug, [facility] [address] [facility] [id number] [address] [place] [phone] Aug, Depressive disorder, not els ewhere classified F32.9 ; Hormone replacement therapy Z79.[address] scan, head R93.0 [place] [address] [facility] [id number] [address] [place] [address] Aug, Major depressive disorder, r ecurrent episode, moderate F33.1 [facility] [address] [id number] [address] [place] [id number] 17 Jul, 2015 Major depressive disorder, r ecurrent episode, moderate F33.1 [facility] [address] [id number] [address] [place] [id number] 17 Jul, 2015 Abdominal pain R10.9 and Hyp ertension I10 [facility] [address] [id number] [address] [place] [id number] 08 Jul, 2015 [facility] [address] [facility] [id number] [address] [place] [id number] 05 Jul, 2015 Major depressive disorder, r ecurrent episode, moderate F33.1 [facility] [address] [facility] [id number] [address] [place] [id number] 04 Jul, 2015 [facility] [address] [facility] [id number] [address] [place] [phone] Jul, [facility] [address] [facility] [id number] [address] [place] [id number] Jun, [facility] [address] [facility] [id number] [address] [place] [id number] Jun, Depressive disorder, not els ewhere classified F32.9 [facility] [address] [facility] [id number] [address] [place] [phone] Jun, [facility] [address] [facility] [id number] [address] [place] [phone] Jun, [facility] [address] [facility] [id number] [address] [place] [id number] Jun, Arthralgia of hip, unspecifi ed laterality M25.559 ; Bruising, spontaneous R23.3 and Night sweats R61 [facility] [address] [facility] [id number] [address] [place] [phone] Jun, [facility] [address] [facility] [id number] [address] [place] [phone] Jun, [facility] [address] [id number] [address] [place] [phone] May, [facility] [address] [id number] [address] [place] [id number] May, Myalgia M79.1 and Screening, lipid Z13.220 [facility] [address] [id number] [address] [place] [phone] Apr, Status post cervical spinal fusion Z98.1 ; Fibromyalgia M79.7 and Unsteady gait R26.81 [facility] [address] [id number] [address] [place] [id number] Nov, [facility] [address] [id number] [address] [place] [phone] Nov, [facility] [address] [facility] [id number] [address] [place] [phone] October, [facility] [address] [id number] [address] [place] [id number] October, [facility] [address] [id number] [address] [place] [phone] October, [facility] [address] [facility] [id number] [address] [place] [phone] October, [facility] [address] [id number] [address] [place] [phone] October, [facility] [address] [id number] [address] [place] [phone] October, Dysuria 788.1 ; Nausea 787.0 2 and Urinary tract infection 599.0 [facility] [address] [id number] [address] [place] [phone] Sep, [facility] [address] [id number] [address] [place] [phone] Sep, [facility] [address] [id number] [facility] [place] [address] 25 Aug, 2014 [facility] [address] [id number] [address] [place] [address], [place] [address] 25 Aug, 2014 [facility] [address] [id number] [address] [place] [address], [place] [address] 24 Aug, 2014 [facility] [address] [id number] [address] [place] [address], [place] [address] 24 Aug, 2014 [facility] [address] [id number] [address] [place] [address], [place] [address] 23 Aug, 2014 [facility] [address] [id number] [address] [place] [address], [place] [address] 19 Aug, 2014 [facility] [address] [id number] [address] [place] [address], [place] [address] 19 Aug, 2014 [facility] [address] [id number] [address] [place] [address], [place] [address] 19 Aug, 2014 [facility] [address] [id number] [address] [place] [address], [place] [address] 19 Aug, 2014 [facility] [address] [id number] [address] [place] [address], [place] [address] 18 Aug, 2014 [facility] [address] [id number] [address] [place] [address], [place] [address] 18 Aug, 2014 [facility] [address] [id number] [address] [place] [address], [place] [address] 13 Aug, 2014 [facility] [address] [id number] [address] [place] [address], [place] [address] 13 Aug, 2014 [facility] [address] [id number] [address] [place] [address], [place] [address] 11 Aug, 2014 [facility] [address] [id number] [address] [place] [address], [place] [address] 11 Aug, 2014 [facility] [address] [id number] [address] [place] [address], [place] [address] 06 Aug, 2014 [facility] [address] [id number] [address] [place] [address], [place] [address] Aug, 2014 [facility] [address] [id number] [address] [place] [address], [place] [address] Aug, 2014 [facility] [address] [id number] [address] [place] [address], [place] [address] Aug, [facility] [address] [id number] [address] [place] [address], [place] [address] Aug, [facility] [address] [id number] [address] [place] [address], [place] [address] Aug, [facility] [address] [id number] [address] [place] [address], [place] [address] Aug, [facility] [address] [id number] [address] [place] [address], [place] [address] Jul, [facility] [address] [id number] [address] [place] [address], [place] [address] Jul, 2014 [facility] [address] [id number] [address] [place] [address], [place] [address] Jul, [facility] [address] [id number] [address] [place] [address], [place] [address] Jul, [facility] [address] [id number] [address] [place] [address], [place] [address] Jul, [facility] [address] [id number] [address] [place] [address], [place] [address] Jul, [facility] [address] [id number] [address] [place] [address], [place] [address] Jul, [facility] [address] [id number] [address] [place] [address], [place] [address] Jul, 2014 [facility] [address] [id number] [address] [place] [address], [place] [address] Jul, [facility] [address] [id number] [address] [place] [address], [place] [address] Jul, 2014 [facility] [address] [id number] [address] [place] [address], [place] [address] Jul, 2014 [facility] [address] [id number] [address] [place] [address], [place] [address] Jul, 2014 [facility] [address] [id number] [address] [place] [address], [place] [address] Jul, 2014 [facility] [address] [id number] [address] [place] [address], [place] [address] Jul, [facility] [address] [id number] [address] [place] [address], [place] [address] Jun, [facility] [address] [id number] [address] [place] [address], [place] [address] Jun, [facility] [address] [id number] [address] [place] [address], [place] [address] Jun, [facility] [address] [id number] [address] [place] [address], [place] [address] Jun, [facility] [address] [id number] [address] [place] [address], [place] [address] Jun, [facility] [address] [id number] [address] [place] [address], [place] [address] Jun, [facility] [address] [id number] [address] [place] [address], [place] [address] May, [facility] [address] [id number] [address] [place] [address], [place] [address] May, [facility] [address] [id number] [address] [place] [address], [place] [address] May, [facility] [address] [id number] [address] [place] [address], [place] [address] May, [facility] [address] [id number] [address] [place] [address], [place] [address] May, [facility] [address] [id number] [address] [place] [address], [place] [address] May, [facility] [address] [id number] [address] [place] [address], [place] [address] Apr, [facility] [address] [id number] [address] [place] [address], [place] [address] Apr, [facility] [address] [id number] [address] [place] [address], [place] [address] Apr, [facility] [address] [id number] [address] [place] [address], [place] [address] Apr, [facility] [address] [id number] [address] [place] [address], [place] [address] Apr, [facility] [address] [id number] [address] [place] [address], [place] [address] Apr, [facility] [address] [id number] [address] [place] [address], [place] [address] Mar, [facility] [address] [id number] [address] [place] [address], [place] [address] Mar, [facility] [address] [id number] [address] [place] [id number] Mar, [facility] [address] [id number] [address] [place] [id number] Mar, [facility] [address] [id number] [address] [place] [id number] Mar, [facility] [address] [id number] [address] [place] [address], [place] [address] Mar, [facility] [address] [id number] [address] [place] [id number] Mar, [facility] [address] [id number] [address] [place] [id number] Mar, [facility] [address] [id number] [address] [place] [address], [place] [address] Mar, [facility] [address] [id number] [address] [place] [address], [place] [address] Mar, [facility] [address] [id number] [address] [place] [address], [place] [address] Mar, [facility] [address] [id number] [address] [place] [address], [place] [address] Mar, [facility] [address] [id number] [address] [place] [address], [place] [id number] 30 Feb, 2014 [facility] [address] [id number] [address] [place] [address], [place] [address] 29 Feb, 2014 [facility] [address] [id number] [address] [place] [address], [place] [address] 29 Feb, 2014 [facility] [address] [id number] [address] [place] [address], [place] [address] Feb, [facility] [address] [id number] [address] [place] [address], [place] [address] Feb, [facility] [address] [id number] [address] [place] [address], [place] [address] Feb, [facility] [address] [id number] [address] [place] [address], [place] [address] Feb, [facility] [address] [id number] [address] [place] [address], [place] [address] Jan, [facility] [address] [id number] [address] [place] [address], [place] [address] Jan, [facility] [address] [id number] [address] [place] [address], [place] [address] Jan, [facility] [address] [id number] [address] [place] [address], [place] [address] Dec, [facility] [address] [id number] [address] [place] [address], [place] [address] Dec, [facility] [address] [id number] [address] [place] [address], [place] [address] Dec, [facility] [address] [id number] [address] [place] [address], [place] [address] Dec, [facility] [address] [id number] [address] [place] [address], [place] [address] Sep, [facility] [address] [id number] [address] [place] [address], [place] [address] Sep, [facility] [address] [id number] [address] [place] [address], [place] [address] Sep, [facility] [address] [id number] [address] [place] [address], [place] [address] Sep, [facility] [address] [id number] [address] [place] [address], [place] [address] Sep, [facility] [address] [id number] [address] [place] [address], [place] [address] Sep, [facility] [address] [id number] [address] [place] [address], [place] [address] Sep, [facility] [address] [id number] [address] [place] [address], [place] [address] Sep, [facility] [address] [id number] [address] [place] [address], [place] [address] Aug, [facility] [address] [id number] [address] [place] [address], [place] [address] Aug, [facility] [address] [id number] [address] [place] [address], [place] [address] May, [facility] [address] [id number] [address] [place] [address], [place] [address] May, [facility] [address] [id number] [address] [place] [address], [place] [address] Apr, [facility] [address] [id number] [address] [place] [address], [place] [address] Apr, [facility] [address] [id number] [address] [place] [address], [place] [address] Apr, [facility] [address] [id number] [address] [place] [address], [place] [address] Apr, [facility] [address] [id number] [address] [place] [address], [place] [address] Apr, [facility] [address] [id number] [address] [place] [address], [place] [address] Apr, [facility] [address] [id number] [address] [place] [address], [place] [address] May, [facility] [address] [id number] [address] [place] [address], [place] [address] 18 May, 2012 [facility] [address] [id number] [address] [place] [address], [place] [address] 15 May, 2012 [facility] [address] [id number] [address] [place] [address], [place] [address] 15 May, 2012 [facility] [address] [id number] [address] [place] [address], [place] [address] May, [facility] [address] [id number] [address] [place] [address], [place] [address] May, [facility] [address] [id number] [address] [place] [address], [place] [address] Apr, [facility] [address] [id number] [address] [place] [address], [place] [address] Apr, [facility] [address] [id number] [address] [place] [address], [place] [address] Apr, [facility] [address] [id number] [address] [place] [address], [place] [address] Apr, [facility] [address] [id number] [address] [place] [address], [place] [address] Apr, [facility] [address] [id number] [address] [place] [address], [place] [address] 08 Apr, 2012 [facility] [address] [id number] [address] [place] [address], [place] [address] 07 Apr, 2012 [facility] [address] [id number] [address] [place] [address], [place] [address] Apr, [facility] [address] [id number] [address] [place] [address], [place] [address] Apr, [facility] [address] [id number] [address] [place] [address], [place] [address] Apr, [facility] [address] [id number] [address] [place] [address], [place] [address] Mar, [facility] [address] [id number] [address] [place] [address], [place] [address] Mar, [facility] [address] [id number] [address] [place] [address], [place] [address] Mar, [facility] [address] [id number] [address] [place] [address], [place] [address] Mar, [facility] [address] [id number] [address] [place] [address], [place] [address] Mar, [facility] [address] [id number] [address] [place] [address], [place] [address] Mar, [facility] [address] [id number] [address] [place] [address], [place] [address] Mar, [facility] [address] [id number] [address] [place] [address], [place] [address] Mar, [facility] [address] [id number] [address] [place] [address], [place] [address] Mar, [facility] [address] [id number] [address] [place] [address], [place] [address] 25 Feb, 2012 [facility] [address] [id number] [address] [place] [address], [place] [address] 16 Feb, 2012 [facility] [address] [id number] [address] [place] [address], [place] [address] 11 Feb, 2012 [facility] [address] [id number] [address] [place] [address], [place] [address] Jan, [facility] [address] [id number] [address] [place] [address], [place] [address] Jan, [facility] [address] [id number] [address] [place] [address], [place] [address] Jan, [facility] [address] [id number] [address] [place] [address], [place] [address] Jan, [facility] [address] [id number] [address] [place] [address], [place] [address] Jan, [facility] [address] [id number] [address] [place] [address], [place] [address] Jan, [facility] [address] [id number] [address] [place] [address], [place] [address] Jan, [facility] [address] [id number] [address] [place] [address], [place] [address] Jan, [facility] [address] [id number] [address] [place] [address], [place] [address] Jan, [facility] [address] [id number] [address] [place] [address], [place] [address] Jan, [facility] [address] [id number] [address] [place] [address], [place] [address] Dec, [facility] [address] [id number] [address] [place] [address], [place] [address] Dec, [facility] [address] [id number] [address] [place] [address], [place] [address] Dec, [facility] [address] [id number] [address] [place] [address], [place] [address] Dec, [facility] [address] [id number] [address] [place] [address], [place] [address] Nov, [facility] [address] [id number] [address] [place] [address], [place] [address] Nov, [facility] [address] [id number] [address] [place] [address], [place] [address] Nov, [facility] [address] [id number] [address] [place] [address], [place] [address] October, [facility] [address] [id number] [address] [place] [address], [place] [address] October, [facility] [address] [id number] [address] [place] [address], [place] [address] October, [facility] [address] [id number] [address] [place] [address], [place] [address] October, [facility] [address] [id number] [address] [place] [address], [place] [address] October, [facility] [address] [id number] [address] [place] [address], [place] [address] October, [facility] [address] [id number] [address] [place] [address], [place] [address] Aug, [facility] [address] [id number] [address] [place] [address], [place] [address] Mar, [facility] [address] [id number] [address] [place] [address], [place] [address] Nov, [facility] [address] [id number] [address] [place] [address], [place] [address] May, [facility] [address] [id number] [address] [place] [address], [place] [address] May, [facility] [address] [id number] [address] [place] [address], [place] [address] Apr, [facility] [address] [id number] [address] [place] [address], [place] [address] 15 Mar, 2010 [facility] [address] [id number] [address] [place] [address] 15 Mar, 2010 IMMUNIZATIONS No Known Immunizations SOCIAL HISTORY Never Assessed REASON FOR VISIT Requests return call PLAN OF CARE VITAL SIGNS MEDICATIONS Medication Instructions Dosage Frequency Start Date End Date Duration S tatus HydrOXYzine HCl 10 mg Orally 2 times a day PRN 1 tablet as needed Feb, 30 days Active Cetirizine HCl 10 MG Orally Once a day 1 tablet 24h Jan, 30 days Active RESULTS No Results PROCEDURES [...]
--- OUTSIDE RECORDS SUMMARY | 2019-06-19 05:58 | XMS REPORT ---
Author Author Sydnie SQUIRES Organization [facility] Address [address] [place] [address] Care Team Providers [employer] Name Role Phone MIRIAN SQUIRES Unavailable PROBLEMS Type Condition ICD9-CM Code [id number] Code Onset Dates Condition S tatus SNOMED Code Problem Hormone replacement therapy Z79.890 Ac tive 731463841 Problem Abnormal CT scan, head R93.0 Active 646888162 Problem Sensorineural hearing loss (SNHL) of both ears H90 .3 Active 524187754 Problem History of colon polyps Z86.010 Active 784884937 Problem Bruising, spontaneous R23.3 Active 869312082 Problem Generalized anxiety disorder F41.1 A ctive 24524133 Problem Arthralgia of hip, unspecified laterality M25.559 Active 11270952 Problem Hematuria, unspecified type R31.9 Ac tive 63044040 Problem Imbalance R26.89 Active 717814725 Problem Hammer toe of right foot M20.41 Activ e 133394086 Problem Plantar wart of right foot B07.0 Act mitchell [id number] Problem Sciatica of left side M54.32 Active 25196160 Problem Hyperlipidemia, unspecified hyperlipidemia type E7 8.5 Active 25677296 Problem Hypertension I10 Active 0686258 3 Problem Night sweats R61 Active 0596623 0 Problem Fibromyalgia M79.7 Active 6637014 7 Problem Major depressive disorder, recurrent episode, moderate F33.1 Active 062051520 Problem Acute left-sided low back pain with left-sided sciatica M54.42 Active 240538961 Problem Bladder spasm N32.89 Active 215195 006 Problem Gastritis without bleeding, unspecified chronicity, unspecified gastritis type K29.70 Active 892103549 Problem Bipolar 1 disorder, mixed F31.60 Acti ve 71554214 Problem Grief F43.20 Active 63046187 Problem Other chronic pain G89.29 Active 8 9725896 Problem Allergic rhinitis J30.9 Active 61 015016 Problem Hot flashes due to menopause N95.1 A ctive 465592058 Problem Ataxia R27.0 Active 32053203 Problem Hearing loss, unspecified laterality H91.90 Active 96401211 ALLERGIES No Information ENCOUNTERS Encounter Location Date Diagnosis [facility] [address] [facility] [id number] [address] [place] [address] Apr, [facility] [address] [id number] [address] [place] [address] Mar, [facility] [address] [facility] [id number] [address] [place] [address] Mar, [facility] [address] [facility] [id number] [address] [place] [address] Mar, [facility] [address] [facility] [id number] [address] [place] [address] Mar, [facility] [address] [facility] [id number] [address] [place] [address] 27 Feb, 2018 Bipolar 1 disorder, mixed F3 1.60 [facility] [address] [facility] [id number] [address] [place] [address] 26 Feb, 2018 Allergic rhinitis J30.9 [facility] [address] [facility] [id number] [address] [place] [address] 24 Feb, 2018 Bipolar 1 disorder, mixed F3 1.60 [facility] [address] [facility] [id number] [address] [place] [address] 20 Feb, 2018 Bipolar 1 disorder, mixed F3 1.60 and Generalized anxiety disorder F41.1 [facility] [address] [facility] [id number] [address] [place] [address] 13 Feb, 2018 Bipolar 1 disorder, mixed F3 1.60 [facility] [address] [facility] [id number] [address] [place] [address] 11 Feb, 2018 Allergic rhinitis J30.9 [facility] [address] [facility] [id number] [address] [place] [address] Feb, [facility] [address] [place] [id number] [address] [place] [address] Jan, Bipolar 1 disorder, mixed F3 1.60 [facility] [address] [place] [id number] [address] [place], [place] [address] Jan, Low back pain M54.5 ; Hyperl ipidemia, unspecified hyperlipidemia type E78.5 and Bipolar 1 disorder, mixed F31.60 [facility] [address] [place] [id number] [address] [place] [address] Jan, Bipolar 1 disorder, mixed F3 1.60 [facility] [address] [place] [address] Jan, Bipolar 1 disorder, mixed F3 1.60 [facility] [address] [address] Jan, Bipolar 1 disorder, mixed F3 1.60 [facility] [address] [place] [id number] [address] [place] [address] Jan, Bipolar 1 disorder, mixed F3 1.60 [facility] [address] [address] Dec, Bipolar 1 disorder, mixed F3 1.60 ; Generalized anxiety disorder F41.1 and Other rn long term care (current) drug therapy Z79.899 [facility] [address] [place] [id number] [address] [place] [address] Dec, Other rn long term care (current) dr ug therapy Z79.899 [facility] [address] [place] [id number] [address] [place] [address] Dec, Bipolar 1 disorder, mixed F3 1.60 [facility] [address] [place] [id number] [address] [place], [place] [address] Dec, Bipolar 1 disorder, mixed F3 1.60 [facility] [address] [place] [id number] [address] [place] [address] Nov, Bipolar 1 disorder, mixed F3 1.60 [facility] [address] [facility] [id number] [address] [place] [address] Nov, Bipolar 1 disorder, mixed F3 1.60 [facility] [address] [facility] [id number] [address] [place] [address] Nov, Bipolar 1 disorder, mixed F3 1.60 [place] [address] [place] [id number] [address] [place] [address] Nov, Allergic rhinitis J30.9 [facility] [address] [facility] [id number] [address] [place] [address] Nov, Allergic rhinitis J30.9 [place] [address] [place] [id number] [address] [place] [address] Nov, [place] [address] [place] [id number] [place] [address] Nov, Bipolar 1 disorder, mixed F3 1.60 [place] [address] [place] [id number] [address] [place] [address] Nov, Fibromyalgia M79.7 and Aller gic rhinitis J30.9 [place] [address] [place] [id number] [address] [place] [address] October, Bipolar 1 disorder, mixed F3 1.60 [facility] [address] [place] [id number] [address] [place] [address] October, Acute nasopharyngitis J00 [facility] [address] [place] [id number] [address] [place] [address] October, Bitten or stung by nonvenomo us insect and other nonvenomous arthropods, initial encounter W57.XXXA and Insect bite (nonvenomous) of abdominal wall, initial encounter S30.861A [facility] [address] [facility] [id number] [address] [place] [address] October, Insect bite (nonvenomous) of abdominal wall, initial encounter S30.861A ; Bitten or stung by nonvenomous insect and other nonvenomous arthropods, initial encounter W57.XXXA ; Allergic rhinitis J30.9 and Low back pain M54.5 [facility] [address] [facility] [id number] [address] [place] [address] October, Bipolar 1 disorder, mixed F3 1.60 [facility] [address] [place] [id number] [address] [place] [address] October, [facility] [address] [facility] [id number] [address] [place] [address] October, [facility] [address] [facility] [id number] [address] [place] [address] October, Bipolar 1 disorder, mixed F3 1.60 [facility] [address] [place] [id number] [address] [place] [address] Sep, Bipolar 1 disorder, mixed F3 1.60 [facility] [address] [place] [id number] [address] [place] [address] Sep, Other chronic pain G89.29 [facility] [address] [place] [id number] [address] [place] [address] Sep, [facility] [address] [place] [id number] [address] [place] [address] Sep, Bipolar 1 disorder, mixed F3 1.60 [facility] [address] [place] [id number] [address] [place] [address] Sep, Allergic rhinitis J30.9 and Sciatica of left side M54.32 [facility] [address] [facility] [id number] [address] [place] [address] Sep, Bipolar 1 disorder, mixed F3 1.60 [facility] [address] [place] [id number] [address] [place] [address] Sep, Bipolar 1 disorder, mixed F3 1.60 and Generalized anxiety disorder F41.1 [facility] [address] [place] [id number] [address] [place] [address] Aug, [facility] [address] [facility] [id number] [address] [place] [address] Aug, Bipolar 1 disorder, mixed F3 1.60 [facility] [address] [facility] [id number] [address] [place] [address] Aug, Bipolar 1 disorder, mixed F3 1.60 [facility] [address] [facility] [id number] [address] [place] [address] Aug, [facility] [address] [facility] [id number] [address] [place] [address] Aug, Generalized anxiety disorder F41.1 [facility] [address] [facility] [id number] [address] [place] [address] Aug, Bipolar 1 disorder, mixed F3 1.60 [facility] [address] [facility] [id number] [address] [place] [address] Aug, Plantar wart of right foot B 07.0 [facility] [address] [facility] [id number] [address] [place] [address] Aug, Bipolar 1 disorder, mixed F3 1.60 [facility] [address] [facility] [id number] [address] [place] [address] Jul, Bipolar 1 disorder, mixed F3 1.60 [facility] [address] [facility] [id number] [address] [place] [address] Jul, [facility] [address] [facility] [id number] [address] [place] [address] 14 Jul, 2017 Bipolar 1 disorder, mixed F3 1.60 [facility] [address] [facility] [id number] [address] [place] [address] 09 Jul, 2017 Generalized anxiety disorder F41.1 [facility] [address] [facility] [id number] [address] [place] [address] 07 Jul, 2017 Bipolar 1 disorder, mixed F3 1.60 [facility] [address] [facility] [id number] [address] [place] [address] 07 Jul, 2017 Acute left-sided low back pa in with left-sided sciatica M54.42 [place] [address] [place] [id number] [address] [place] [address] 05 Jul, 2017 Coccydynia M53.3 [place] [address] [place] [id number] [address] [place] [address] Jun, Bipolar 1 disorder, mixed F3 1.60 [facility] [place] [place] [id number] [address] [place] [address] Jun, Acute nasopharyngitis J00 [place] [address] [place] [id number] [place] [address] Jun, Bipolar 1 disorder, mixed F3 1.60 [place] [address] [address] Jun, Fibromyalgia M79.7 [place] [address] [place] [id number] [place] [address] Jun, Bipolar 1 disorder, mixed F3 1.60 [place] [address] [address] Jun, Fibromyalgia M79.7 and Bipol ar 1 disorder, mixed F31.60 [place] [address] [place] [id number] [address] [place] [address] May, Bipolar 1 disorder, mixed F3 1.60 ; Generalized anxiety disorder F41.1 and 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 [place] [address] [facility] [id number] [address] [place] [address] May, Bipolar 1 disorder, mixed F3 1.60 [facility] [address] [place] [id number] [address] [place] [address] 14 May, 2017 Cough R05 and Body aches R52 [facility] [address] [place] [id number] [address] [place] [address] May, Bladder spasm N32.89 and Acu te cystitis without hematuria N30.00 [facility] [address] [address] 07 May, 2017 Bipolar 1 disorder, mixed F3 1.60 [facility] [address] [address] 30 Apr, 2017 [place] [address] [address] Apr, Major depressive disorder, r ecurrent episode, moderate F33.1 and Encounter for immunization Z23 [place] [address] [place] [address] Apr, Bipolar 1 disorder, mixed F3 1.60 [place] [address] [address] Apr, Bipolar 1 disorder, mixed F3 1.60 [place] [address] [address] Apr, Bipolar 1 disorder, mixed F3 1.60 [place] [address] [address] Apr, Yeast vaginitis B37.3 [place] [address] [address] 09 Apr, 2017 Bipolar 1 disorder, mixed F3 1.60 [facility] [address] [address] 07 Apr, [address]03[address] for immunization Z23 [facility] [address] [address] Apr, Bipolar 1 disorder, mixed F3 1.60 [facility] [address] [address] Mar, Bipolar 1 disorder, mixed F3 1.60 [place] [address] [address] Mar, Bipolar 1 disorder, mixed F3 1.60 [place] [address] Mar, Imbalance R26.89 [address] Encount er for immunization Z23 [place] [address] [place] [id number] [address] [place] [address] Mar, Generalized anxiety disorder F41.1 [place] [address] Mar, Bipolar 1 disorder, mixed F3 1.60 [place] [address] Mar, Generalized anxiety disorder F41.1 [place] [address] [address] Mar, Bipolar 1 disorder, mixed F3 1.60 [place] [address] [address] Mar, Bipolar 1 disorder, mixed F3 1.60 [place] [address] [address] Feb, Bipolar 1 disorder, mixed F3 1.60 [place] [address] [place] [id number] [place] [address] Feb, Bipolar 1 disorder, mixed F3 1.60 and Generalized anxiety disorder F41.1 [place] [address] [address] Feb, Gastritis without bleeding, unspecified chronicity, unspecified gastritis type K29.70 ; Hammer toe of right foot M20.41 and Other viral warts B07.8 [place] [address] [place] [id number] [address] [place] [address] Feb, Bipolar 1 disorder, mixed F3 1.60 [place] [address] [place] [id number] [address] [place] [address] Feb, Bipolar 1 disorder, mixed F3 1.60 [facility] [address] [facility] [id number] [address] [place] [address] 05 Feb, 2017 Bipolar 1 disorder, mixed F3 1.60 [facility] [address] [place] [id number] [address] [place] [address] Jan, Encounter for screening mamm ogram for breast cancer Z12.31 ; Other viral warts B07.8 and Allergic rhinitis J30.9 [facility] [address] [facility] [id number] [address] [place] [address] Jan, Bipolar 1 disorder, mixed F3 1.60 [place] [address] [place] [id number] [address] [place] [address] Jan, Bipolar 1 disorder, mixed F3 1.60 [place] [address] [place] [id number] [address] [place] [address] Jan, [place] [address] [place] [id number] [place] [address] Jan, Bipolar 1 disorder, mixed F3 1.60 [place] [address] [place] [id number] [address] [place] [address] Jan, Bipolar 1 disorder, mixed F3 1.60 [place] [address] [place] [id number] [address] [place] [address] Jan, Allergic rhinitis J30.9 ; He maturia R31.9 and Colon cancer screening Z12.11 [place] [id number] [facility] [id number] [address] [place] [address] Dec, Bipolar 1 disorder, mixed F3 1.60 [place] [address] [place] [id number] [address] [place] [address] 18 Dec, 2016 Bipolar 1 disorder, mixed F3 1.60 ; Generalized anxiety disorder F41.1 and Other rn long term care (current) drug therapy Z79.899 [facility] [address] [place] [id number] [address] [place] [address] 17 Dec, 2016 Bipolar 1 disorder, mixed F3 1.60 [facility] [address] [id number] [address] [place] [address] Dec, Bipolar 1 disorder, mixed F3 1.60 [facility] [address] [facility] [id number] [address] [place] [address] Dec, Bipolar 1 disorder, mixed F3 1.60 [facility] [address] [facility] [id number] [address] [place] [address] Dec, Low back pain M54.5 and Recu rrent urinary tract infection N39.0 [facility] [address] [facility] [id number] [address] [place] [address] Nov, Bipolar 1 disorder, mixed F3 1.60 [facility] [address] [facility] [id number] [address] [place] [address] Nov, Bipolar 1 disorder, mixed F3 1.60 [facility] [address] [facility] [id number] [address] [place] [address] Nov, Bipolar 1 disorder, mixed F3 1.60 [facility] [address] [facility] [id number] [address] [place] [address] Nov, Bipolar 1 disorder, mixed F3 1.60 [facility] [address] [facility] [id number] [address] [place] [address] Nov, [facility] [address] [facility] [id number] [address] [place] [address] Nov, Anesthesia of skin R20.0 ; F requent UTI N39.0 ; Tobacco abuse Z72.0 and Colon cancer screening Z12.11 [facility] [address] [facility] [id number] [address] [place] [address] Nov, Bipolar 1 disorder, mixed F3 1.60 [facility] [address] [facility] [id number] [address] [place] [address] October, Bipolar 1 disorder, mixed F3 1.60 [facility] [address] [facility] [id number] [address] [place] [address] October, Bipolar 1 disorder, mixed F3 1.60 [facility] [address] [place] [id number] [address] [place] [address] October, Bipolar 1 disorder, mixed F3 1.60 [facility] [address] [facility] [id number] [address] [place] [address] October, Bipolar 1 disorder, mixed F3 1.60 [facility] [address] [place] [id number] [address] [place] [address] October, Bipolar 1 disorder, mixed F3 1.60 [place] [address] [place] [id number] [address] [place] [address] October, Cervicalgia M54.2 and Bipola r 1 disorder, mixed F31.60 [place] [address] [place] [id number] [address] [place] [address] October, Hypertension I10 ; Hyperlipi demia, unspecified hyperlipidemia type E78.5 and Family history of thyroid disease Z83.49 [place] [address] [place] [id number] [address] [place] [address] October, [place] [address] [place] [id number] [address] [place] [id number] October, Hypertension I10 ; Hyperlipi demia, unspecified hyperlipidemia type E78.5 and Family history of thyroid problem Z83.49 [place] [address] [place] [id number] [place] [id number] October, Bipolar 1 disorder, mixed F3 1.60 [place] [address] [place] [id number] [place] [id number] Sep, Bipolar 1 disorder, mixed F3 1.60 [place] [address] [place] [id number] [place] [id number] Sep, Bipolar 1 disorder, mixed F3 1.60 [place] [address] [place] [id number] [place] [id number] Sep, Bipolar 1 disorder, mixed F3 1.60 [facility] [address] [place] [id number] [place] [id number] Sep, History of colon polyps Z86. 010 and Hematochezia K92.1 [facility] [address] [place] [id number] [place] [id number] Sep, Major depressive disorder, r ecurrent episode, moderate F33.1 [facility] [address] [place] [id number] [place] [id number] Sep, Bipolar 1 disorder, mixed F3 1.60 [place] [address] [place] [id number] [place] [id number] Aug, Hot flashes due to menopause N95.1 [place] [address] [place] [id number] [place] [id number] Aug, Bipolar 1 disorder, mixed F3 1.60 [place] [id number] [place] [id number] Aug, [facility] [address] [place] [id number] [place] [id number] Aug, Bipolar 1 disorder, mixed F3 1.60 [place] [address] [place] [id number] [place] [id number] Aug, Bipolar 1 disorder, mixed F3 1.60 [place] [address] [place] [id number] [place] [phone] Aug, Hot flashes due to menopause N95.1 ; Cervicalgia M54.2 and Ataxia R27.0 [place] [address] [place] [id number] [address] [place] [address] Jul, Bipolar 1 disorder, mixed F3 1.60 [facility] [address] [place] [id number] [address] [place] [address] Jul, Bipolar 1 disorder, mixed F3 1.60 [place] [address] [place] [id number] [address] [place], [place] [address] Jul, Bipolar 1 disorder, mixed F3 1.60 [place] [address] Jul, Bipolar 1 disorder, mixed F3 1.60 [place] [address] 10 Jul, 2016 Bipolar 1 disorder, mixed F3 1.60 [place] [address] 08 Jul, 2016 Cervicalgia M54.2 ; Tremor R 25.1 ; Hearing abnormally acute, unspecified laterality H93.239 ; Alopecia L65.9 ; Encounter for immunization Z23 and Family history of thyroid disease Z83.49 [place] [address] 06 Jul, 2016 Bipolar 1 disorder, mixed F3 1.60 [place] [address] [place] [address] Jun, [place] [address] Jun, Hearing disorder, unspecifie d laterality H93.299 [place] [address] [place] [address] Jun, Bipolar 1 disorder, mixed F3 1.60 [place] [address] [place] [address] Jun, Bipolar 1 disorder, mixed F3 1.60 [place] [address] [address] Jun, Allergic rhinitis J30.9 [place] [address] [place] [address] Jun, Bipolar 1 disorder, mixed F3 1.60 [place] [address] [address] Jun, Bipolar 1 disorder, mixed F3 1.60 [facility] [address] [id number] [address] [place] [address] Jun, Allergic rhinitis J30.9 [facility] [address] [id number] [address] [place] [address] Jun, Allergic rhinitis J30.9 [facility] [address] [id number] [address] [place] [address] Jun, Bipolar 1 disorder, mixed F3 1.60 [facility] [address] [id number] [address] [place] [address] May, Bipolar 1 disorder, mixed F3 1.60 [facility] [address] [id number] [address] [place] [address] May, Bipolar 1 disorder, mixed F3 1.60 [facility] [address] [id number] [address] [place] [address] May, [facility] [address] [id number] [address] [place] [address] May, Bipolar 1 disorder, mixed F3 1.60 [facility] [address] [id number] [address] [place] [address] May, Bipolar 1 disorder, mixed F3 1.60 [facility] [address] [id number] [address] [place] [address] May, [facility] [address] [id number] [address] [place] [address] May, [facility] [address] [id number] [address] [place] [address] May, [facility] [address] [id number] [address] [place] [address] May, Abdominal pain, unspecified location R10.9 [facility] [address] [id number] [address] [place] [address] May, [facility] [address] [address] Apr, Hematuria R31.9 ; Ataxia R27 .0 and Hearing loss, unspecified laterality H91.90 [facility] [address] [address] Apr, Bipolar 1 disorder, mixed F3 1.60 [facility] [address] [address] Apr, Acute effusion of both middl e ears H65.193 [place] [address] [address] Apr, Hematuria R31.9 and Pyelonep hritis N12 [place] [address] [address] Apr, [place] [address] [address] Mar, Bipolar 1 disorder, mixed F3 1.60 [place] [address] [address] Mar, [place] [address] [address] Mar, Bipolar 1 disorder, mixed F3 1.60 [place] [address] [address] Mar, Bipolar 1 disorder, mixed F3 1.60 [place] [address] [place] [address] Mar, Encounter for immunization Z 23 and Gastritis without bleeding, unspecified chronicity, unspecified gastritis type K29.70 [place] [address] [address] Mar, Bipolar 1 disorder, mixed F3 1.60 and Grief F43.20 [place] [address] [address] Mar, Gastritis without bleeding, unspecified chronicity, unspecified gastritis type K29.70 [facility] [address] [place] [id number] [address] [place] [address] Mar, Bipolar 1 disorder, mixed F3 1.60 [place] [address] [place] [id number] [address] [place], [place] [address] 05 Mar, 2016 Gastritis without bleeding, unspecified chronicity, unspecified gastritis type K29.70 [place] [address] [address] Mar, [place] [address] [address] Feb, Bipolar 1 disorder, mixed F3 1.60 [place] [address] [address] Feb, Bipolar 1 disorder, mixed F3 1.60 and Grief F43.20 [place] [address] [address] Feb, Gastritis without bleeding, unspecified chronicity, unspecified gastritis type K29.70 [place] [address] [address] 14 Feb, 2016 Bipolar 1 disorder, mixed F3 1.60 [facility] [address] [place] [id number] [address] [place] [address] 09 Feb, 2016 Gastroesophageal reflux dise ase, esophagitis presence not specified K21.9 [facility] [id number] [place] [address] Jan, Bipolar 1 disorder, mixed F3 1.60 [place] [address] [address] Jan, Bipolar 1 disorder, mixed F3 1.60 and Unsteady gait R26.81 [place] [address] [place] [id number] [address] [place] [address] Jan, Bipolar 1 disorder, mixed F3 1.60 [facility] [address] [place] [id number] [address] [place] [address] Jan, Bipolar 1 disorder, mixed F3 1.60 and Other rn long term care (current) drug therapy Z79.899 [facility] [address] [facility] [id number] [address] [place] [address] Jan, Bipolar 1 disorder, mixed F3 1.60 [place] [address] [place] [id number] [address] [place] [address] Jan, Bipolar 1 disorder, mixed F3 1.60 [place] [address] [place] [id number] [address] [place] [address] Jan, Bipolar 1 disorder, mixed F3 1.60 ; Grief F43.20 and 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 [place] [address] [place] [id number] [address] [place] [address] Jan, Bipolar 1 disorder, mixed F3 1.60 [place] [address] [place] [id number] [address] [place] [address] Dec, [place] [address] [place] [id number] [address] [place] [address] Dec, Bipolar 1 disorder, mixed F3 1.60 ; Vitamin D deficiency, unspecified E55.9 ; H/O allergic rhinitis Z87.09 ; Other chronic pain G89.29 and Dorsalgia, unspecified M54.9 [place] [address] [place] [id number] [address] [place] [address] Dec, [place] [address] [place] [id number] [address] [place] [address] Dec, Bipolar 1 disorder, mixed F3 1.60 [place] [address] [place] [id number] [address] [place] [address] Dec, Major depressive disorder, r ecurrent episode, moderate F33.1 [place] [address] [place] [id number] [address] [place] [address] Dec, Major depressive disorder, r ecurrent episode, moderate F33.1 [facility] [address] [facility] [id number] [address] [place] [address] Nov, [place] [address] [facility] [id number] [address] [place] [address] Nov, Bipolar 1 disorder, mixed F3 1.60 [place] [address] [facility] [id number] [address] [place] [address] Nov, Major depressive disorder, r ecurrent episode, moderate F33.1 [place] [address] [facility] [id number] [address] [place] [address] Nov, Cervicalgia M54.2 ; Arthralg ia of hip, unspecified laterality M25.559 ; Allergic rhinitis J30.9 and Hormone replacement therapy Z79.890 [facility] [address] [facility] [id number] [address] [place] [address] Nov, Other seasonal allergic rhin itis J30.2 [place] [address] [facility] [id number] [address] [place] [address] October, Major depressive disorder, r ecurrent episode, moderate F33.1 [place] [address] [facility] [id number] [address] [place] [address] October, Major depressive disorder, r ecurrent episode, moderate F33.1 and Arthralgia of hip, unspecified laterality M25.559 [place] [address] [facility] [id number] [address] [place] [address] October, Grief F43.20 ; Hypertension I10 ; Hyperlipidemia, unspecified hyperlipidemia type E78.5 ; Other chronic pain G89.29 and Allergic rhinitis, unspecified allergic rhinitis type J30.9 [place] [address] [facility] [id number] [address] [place] [address] October, Major depressive disorder, r ecurrent episode, moderate F33.1 [place] [address] [facility] [id number] [address] [place] [address] Sep, Major depressive disorder, r ecurrent episode, moderate F33.1 [facility] [address] [id number] [address] [place] [address] Sep, [facility] [address] [id number] [address] [place] [address] Sep, Major depressive disorder, r ecurrent episode, moderate F33.1 [facility] [address] [facility] [id number] [address] [place] [address] Sep, Grief F43.20 [facility] [address] [id number] [address] [place] [address] Aug, Major depressive disorder, r ecurrent episode, moderate F33.1 [place] [address] [facility] [id number] [address] [place] [address] Aug, Bipolar 1 disorder, mixed F3 1.60 [place] [address] [facility] [id number] [address] [place] [address] Aug, Allergic rhinitis J30.9 ; Ce rvicalgia M54.2 and Low back pain M54.5 [facility] [address] [facility] [id number] [address] [place] [address] Aug, Major depressive disorder, r ecurrent episode, moderate F33.1 [facility] [address] [facility] [id number] [address] [place] [address] Aug, Sinusitis J32.9 and Tobacco 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 [facility] [address] [id number] [address] [place] [address] Aug, [facility] [address] [facility] [id number] [address] [place] [address] Aug, Depressive disorder, not els ewhere classified F32.9 ; Hormone replacement therapy Z79.[address] scan, head R93.0 [facility] [address] [facility] [id number] [address] [place] [address] Aug, Major depressive disorder, r ecurrent episode, moderate F33.1 [facility] [address] [facility] [id number] [address] [place] [address] 17 Jul, 2015 Major depressive disorder, r ecurrent episode, moderate F33.1 [facility] [address] [id number] [address] [place] [address] 17 Jul, 2015 Abdominal pain R10.9 and Hyp ertension I10 [facility] [address] [id number] [address] [place] [address] 08 Jul, 2015 [facility] [address] [facility] [id number] [address] [place] [address] 05 Jul, 2015 Major depressive disorder, r ecurrent episode, moderate F33.1 [facility] [address] [id number] [address] [place] [address] 04 Jul, 2015 [facility] [address] [facility] [id number] [address] [place] [address] Jul, [facility] [address] [facility] [id number] [address] [place] [address] Jun, [facility] [address] [facility] [id number] [address] [place] [address] Jun, Depressive disorder, not els ewhere classified F32.9 [facility] [address] [facility] [id number] [address] [place] [address] Jun, [facility] [address] [facility] [id number] [address] [place] [address] Jun, [facility] [address] [facility] [id number] [address] [place] [address] Jun, Arthralgia of hip, unspecifi ed laterality M25.559 ; Bruising, spontaneous R23.3 and Night sweats R61 [facility] [address] [facility] [id number] [address] [place] [address] Jun, [facility] [address] [facility] [id number] [address] [place] [address] Jun, [facility] [address] [id number] [address] [place] [address] May, [facility] [address] [id number] [address] [place] [address] May, Myalgia M79.1 and Screening, lipid Z13.220 [facility] [address] [facility] [id number] [address] [place] [address] Apr, Status post cervical spinal fusion Z98.1 ; Fibromyalgia M79.7 and Unsteady gait R26.81 [facility] [address] [id number] [address] [place] [address] Nov, [facility] [address] [id number] [address] [place] [address] Nov, [facility] [address] [facility] [id number] [address] [place] [address] October, [facility] [address] [id number] [address] [place] [address] October, [facility] [address] [facility] [id number] [address] [place] [address] October, [facility] [address] [facility] [id number] [address] [place] [address] October, [facility] [address] [facility] [id number] [address] [place] [address] October, [facility] [address] [facility] [id number] [address] [place] [address] October, Dysuria 788.1 ; Nausea 787.0 2 and Urinary tract infection 599.0 [facility] [address] [id number] [address] [place] [address] 14 Sep, 2014 [facility] [address] [facility] [id number] [address] [place] [address] Sep, [facility] [address] [id number] [facility] [address] 25 Aug, 2014 [facility] [address] [id number] [address] [place] [address], [place] [address] 25 Aug, 2014 [facility] [address] [id number] [address] [place] [address], [place] [address] 24 Aug, 2014 [facility] [address] [id number] [address] [place] [address], [place] [address] 24 Aug, 2014 [facility] [address] [id number] [address] [place] [address], [place] [address] 23 Aug, 2014 [facility] [address] [id number] [address] [place] [address], [place] [address] 19 Aug, 2014 [facility] [address] [id number] [address] [place] [address], [place] [address] 19 Aug, 2014 [facility] [address] [id number] [address] [place] [address], [place] [address] 19 Aug, 2014 [facility] [address] [id number] [address] [place] [address], [place] [address] 19 Aug, 2014 [facility] [address] [id number] [address] [place] [address], [place] [address] 18 Aug, 2014 [facility] [address] [id number] [address] [place] [address], [place] [address] 18 Aug, 2014 [facility] [address] [id number] [address] [place] [address], [place] [address] 13 Aug, 2014 [facility] [address] [id number] [address] [place] [address], [place] [address] 13 Aug, 2014 [facility] [address] [id number] [address] [place] [address], [place] [address] 11 Aug, 2014 [facility] [address] [id number] [address] [place] [address], [place] [address] 11 Aug, 2014 [facility] [address] [id number] [address] [place] [address], [place] [address] 06 Aug, 2014 [facility] [address] [id number] [facility] [address] Aug, 2014 [facility] [address] [id number] [address] [place] [address], [place] [address] Aug, 2014 [facility] [address] [id number] [address] [place] [address], [place] [address] Aug, 2014 [facility] [address] [id number] [address] [place] [address], [place] [address] Aug, 2014 [facility] [address] [id number] [address] [place] [address], [place] [address] Aug, [facility] [address] [id number] [address] [place] [address], [place] [address] Aug, [facility] [address] [id number] [address] [place] [address], [place] [address] Jul, [facility] [address] [id number] [address] [place] [address], [place] [address] Jul, [facility] [address] [id number] [address] [place] [address], [place] [address] Jul, [facility] [address] [id number] [address] [place] [address], [place] [address] Jul, [facility] [address] [id number] [address] [place] [address], [place] [address] Jul, [facility] [address] [id number] [address] [place] [address], [place] [address] Jul, 2014 [facility] [address] [id number] [address] [place] [address], [place] [address] Jul, [facility] [address] [id number] [address] [place] [address], [place] [address] Jul, 2014 [facility] [address] [id number] [address] [place] [address], [place] [address] Jul, [facility] [address] [id number] [address] [place] [address], [place] [address] Jul, 2014 [facility] [address] [id number] [address] [place] [address], [place] [address] Jul, 2014 [facility] [address] [id number] [address] [place] [address], [place] [address] Jul, 2014 [facility] [address] [id number] [address] [place] [address], [place] [address] Jul, 2014 [facility] [address] [id number] [address] [place] [address], [place] [address] Jul, [facility] [address] [id number] [address] [place] [address], [place] [address] Jun, [facility] [address] [id number] [address] [place] [address], [place] [address] Jun, [facility] [address] [id number] [address] [place] [address], [place] [address] Jun, [facility] [address] [id number] [address] [place] [address], [place] [address] Jun, [facility] [address] [id number] [address] [place] [address], [place] [address] Jun, [facility] [address] [id number] [address] [place] [address], [place] [address] Jun, [facility] [address] [id number] [address] [place] [address], [place] [address] May, [facility] [address] [id number] [address] [place] [address], [place] [address] May, [facility] [address] [id number] [address] [place] [address], [place] [address] May, [facility] [address] [id number] [address] [place] [address], [place] [address] May, [facility] [address] [id number] [address] [place] [address], [place] [address] May, [facility] [address] [id number] [address] [place] [address], [place] [address] May, [facility] [address] [id number] [address] [place] [address], [place] [address] Apr, [facility] [address] [id number] [address] [place] [address], [place] [address] Apr, [facility] [address] [id number] [address] [place] [address], [place] [address] Apr, [facility] [address] [id number] [address] [place] [address], [place] [address] Apr, [facility] [address] [id number] [address] [place] [address], [place] [address] Apr, [facility] [address] [id number] [address] [place] [address], [place] [address] Apr, [facility] [address] [id number] [address] [place] [address], [place] [address] Mar, [facility] [address] [id number] [address] [place] [address], [place] [address] Mar, [facility] [address] [id number] [address] [place] [address] Mar, [facility] [address] [id number] [address] [place] [address], [place] [address] Mar, [facility] [address] [id number] [address] [place] [address] Mar, [facility] [address] [id number] [address] [place] [address], [place] [address] Mar, [facility] [address] [id number] [address] [place] [address], [place] [address] Mar, [facility] [address] [id number] [address] [place] [address], [place] [address] Mar, [facility] [address] [id number] [address] [place] [address] [place] [address] Mar, [facility] [address] [id number] [address] [place] [address], [place] [address] Mar, [facility] [address] [id number] [address] [place] [address], [place] [id number] Mar, [facility] [address] [id number] [address] [place] [address], [place] [address] Mar, [facility] [address] [id number] [address] [place] [address], [place] [address] 30 Feb, 2014 [facility] [address] [id number] [address] [place] [address], [place] [address] 29 Feb, 2014 [facility] [address] [id number] [address] [place] [address], [place] [address] 29 Feb, 2014 [facility] [address] [id number] [address] [place] [address], [place] [address] Feb, [facility] [address] [id number] [address] [place] [address], [place] [address] Feb, [facility] [address] [id number] [address] [place] [address], [place] [address] Feb, [facility] [address] [id number] [address] [place] [address], [place] [address] Feb, [facility] [address] [id number] [address] [place] [address], [place] [address] Jan, [facility] [address] [id number] [address] [place] [address], [place] [address] Jan, [facility] [address] [id number] [address] [place] [address], [place] [address] Jan, [facility] [address] [id number] [address] [place] [address], [place] [address] Dec, [facility] [address] [id number] [address] [place] [address], [place] [address] Dec, [facility] [address] [id number] [facility] [address] Dec, [facility] [address] [id number] [address] [place] [address], [place] [address] Dec, [facility] [address] [id number] [address] [place] [address], [place] [address] Sep, [facility] [address] [id number] [address] [place] [address], [place] [address] Sep, [facility] [address] [id number] [address] [place] [address], [place] [address] Sep, [facility] [address] [id number] [address] [place] [address], [place] [address] Sep, [facility] [address] [id number] [address] [place] [address], [place] [address] Sep, [facility] [address] [id number] [address] [place] [address], [place] [address] Sep, [facility] [address] [id number] [address] [place] [address], [place] [address] Sep, [facility] [address] [id number] [address] [place] [address], [place] [address] Sep, [facility] [address] [id number] [address] [place] [address], [place] [address] Aug, [facility] [address] [id number] [address] [place] [address], [place] [address] Aug, [facility] [address] [id number] [address] [place] [address], [place] [address] May, [facility] [address] [id number] [address] [place] [address], [place] [address] May, [facility] [address] [id number] [address] [place] [address], [place] [address] Apr, [facility] [address] [id number] [address] [place] [address], [place] [address] Apr, [facility] [address] [id number] [address] [place] [address], [place] [address] Apr, [facility] [address] [id number] [address] [place] [address], [place] [address] Apr, [facility] [address] [id number] [address] [place] [address], [place] [address] Apr, [facility] [address] [id number] [address] [place] [address], [place] [address] Apr, [facility] [address] [id number] [address] [place] [address], [place] [address] May, [facility] [address] [id number] [address] [place] [address], [place] [address] 18 May, 2012 [facility] [address] [id number] [address] [place] [address], [place] [address] 15 May, 2012 [facility] [address] [id number] [address] [place] [address], [place] [address] 15 May, 2012 [facility] [address] [id number] [address] [place] [address], [place] [address] May, [facility] [address] [id number] [address] [place] [address], [place] [address] May, [facility] [address] [id number] [address] [place] [address], [place] [address] Apr, [facility] [address] [id number] [address] [place] [address], [place] [address] Apr, [facility] [address] [id number] [address] [place] [address], [place] [address] Apr, [facility] [address] [id number] [address] [place] [address], [place] [address] Apr, [facility] [address] [id number] [address] [place] [address], [place] [address] Apr, [facility] [address] [id number] [address] [place] [address], [place] [address] 08 Apr, 2012 [facility] [address] [id number] [address] [place] [address], [place] [address] 07 Apr, 2012 [facility] [address] [id number] [address] [place] [address], [place] [address] Apr, [facility] [address] [id number] [address] [place] [address], [place] [address] 07 Apr, 2012 [facility] [address] [id number] [address] [place] [address], [place] [address] Apr, [facility] [address] [id number] [address] [place] [address], [place] [address] Mar, [facility] [address] [id number] [address] [place] [address], [place] [address] Mar, [facility] [address] [id number] [address] [place] [address], [place] [address] Mar, [facility] [address] [id number] [address] [place] [address], [place] [address] Mar, [facility] [address] [id number] [address] [place] [address], [place] [address] Mar, [facility] [address] [id number] [address] [place] [address], [place] [address] Mar, [facility] [address] [id number] [address] [place] [address], [place] [address] Mar, [facility] [address] [id number] [address] [place] [address] Mar, [facility] [address] [id number] [address] [place] [address], [place] [address] Mar, [facility] [address] [id number] [address] [place] [address], [place] [address] 25 Feb, 2012 [facility] [address] [id number] [address] [place] [address], [place] [address] 16 Feb, 2012 [facility] [address] [id number] [address] [place] [address], [place] [address] Feb, [facility] [address] [id number] [address] [place] [address], [place] [address] Jan, [facility] [address] [id number] [address] [place] [address], [place] [address] Jan, [facility] [address] [id number] [address] [place] [address], [place] [address] Jan, [facility] [address] [id number] [address] [place] [address], [place] [address] Jan, [facility] [address] [id number] [address] [place] [address], [place] [address] Jan, [facility] [address] [id number] [address] [place] [address], [place] [address] Jan, [facility] [address] [id number] [address] [place] [address], [place] [address] Jan, [facility] [address] [id number] [address] [place] [address], [place] [address] Jan, [facility] [address] [id number] [address] [place] [address], [place] [address] Jan, [facility] [address] [id number] [address] [place] [address], [place] [address] Jan, [facility] [address] [id number] [address] [place] [address], [place] [address] Dec, [facility] [address] [id number] [address] [place] [address], [place] [address] Dec, [facility] [address] [id number] [address] [place] [address], [place] [address] Dec, [facility] [address] [id number] [address] [place] [address], [place] [address] Dec, [facility] [address] [id number] [address] [place] [address], [place] [address] Nov, [facility] [address] [id number] [address] [place] [address], [place] [address] Nov, [facility] [address] [id number] [address] [place] [address], [place] [address] Nov, [facility] [address] [id number] [address] [place] [address], [place] [address] October, [facility] [address] [id number] [address] [place] [address], [place] [address] October, [facility] [address] [id number] [address] [place] [address], [place] [address] October, [facility] [address] [id number] [address] [place] [address], [place] [address] October, [facility] [address] [id number] [address] [place] [address], [place] [address] October, [facility] [address] [id number] [address] [place] [address], [place] [address] October, [facility] [address] [id number] [address] [place] [address], [place] [address] Aug, [facility] [address] [id number] [address] [place] [address], [place] [address] Mar, [facility] [address] [id number] [address] [place] [address], [place] [address] Nov, [facility] [address] [id number] [address] [place] [address], [place] [address] May, [facility] [address] [id number] [address] [place] [address], [place] [address] May, [facility] [address] [id number] [address] [place] [address], [place] [address] Apr, [facility] [address] [id number] [address] [place] [address], [place] [address] 15 Mar, 2010 [facility] [address] [id number] [address] [place] [address] 15 Mar, 2010 IMMUNIZATIONS No Known Immunizations SOCIAL HISTORY Never Assessed REASON FOR VISIT Refill request PLAN OF CARE VITAL SIGNS MEDICATIONS Medication Instructions Dosage Frequency Start Date End Date Duration S alexandr HydrOXYzine HCl 25 MG Orally 2 times a day 1 tablet as needed 12h 06 Feb, 2018 30 day(s) Active RESULTS No Results PROCEDURES [...]
--- OUTSIDE RECORDS SUMMARY | 2019-06-19 05:58 | XMS REPORT ---
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 Name Role Phone JOHN MORTON Unavailable PROBLEMS Type Condition ICD9-CM Code AMF60-UP Code Onset Dates Condition S tatus SNOMED Code Problem Hormone replacement therapy Z79.890 Ac tive 244871526 Problem Abnormal CT scan, head R93.0 Active 913157073 Problem Sensorineural hearing loss (SNHL) of both ears H90 .3 Active 280089427 Problem History of colon polyps Z86.010 Active 636045884 Problem Bruising, spontaneous R23.3 Active 177208363 Problem Generalized anxiety disorder F41.1 A ctive 67671053 Problem Arthralgia of hip, unspecified laterality M25.559 Active 90281857 Problem Hematuria, unspecified type R31.9 Ac tive 42207497 Problem Imbalance R26.89 Active 821939506 Problem Hammer toe of right foot M20.41 Activ e 620528112 Problem Plantar wart of right foot B07.0 Act mitchell [id number] Problem Sciatica of left side M54.32 Active 36395022 Problem Hyperlipidemia, unspecified hyperlipidemia type E7 8.5 Active 93613696 Problem Hypertension I10 Active 5283480 3 Problem Night sweats R61 Active 4560388 0 Problem Fibromyalgia M79.7 Active 9337944 7 Problem Major depressive disorder, recurrent episode, moderate F33.1 Active 759269473 Problem Acute left-sided low back pain with left-sided sciatica M54.42 Active 918666238 Problem Bladder spasm N32.89 Active 365120 006 Problem Gastritis without bleeding, unspecified chronicity, unspecified gastritis type K29.70 Active 683996016 Problem Bipolar 1 disorder, mixed F31.60 Acti ve 96778178 Problem Grief F43.20 Active 22707815 Problem Other chronic pain G89.29 Active 8 3467593 Problem Allergic rhinitis J30.9 Active 61 809685 Problem Hot flashes due to menopause N95.1 A ctive 864762894 Problem Ataxia R27.0 Active 58540757 Problem Hearing loss, unspecified laterality H91.90 Active 74470652 ALLERGIES No Information ENCOUNTERS Encounter Location Date Diagnosis [facility] [address] [facility] [id number] [address] [place] [phone] Apr, [facility] [address] [facility] [id number] [address] [place] [phone] Mar, [facility] [address] [facility] [id number] [address] [place] [phone] Mar, [facility] [address] [facility] [id number] [address] [place] [phone] Mar, [facility] [address] [facility] [id number] [address] [place] [phone] Mar, [facility] [address] [facility] [id number] [address] [place] [phone] 27 Feb, 2018 Bipolar 1 disorder, mixed F3 1.60 [facility] [address] [facility] [id number] [address] [place] [phone] 26 Feb, 2018 [facility] [address] [facility] [id number] [address] [place] [phone] 24 Feb, 2018 Bipolar 1 disorder, mixed F3 1.60 [facility] [address] [facility] [id number] [address] [place] [phone] 20 Feb, 2018 Bipolar 1 disorder, mixed F3 1.60 and Generalized anxiety disorder F41.1 [facility] [address] [facility] [id number] [address] [place] [phone] 13 Feb, 2018 Bipolar 1 disorder, mixed F3 1.60 [facility] [address] [facility] [id number] [address] [place] [phone] 11 Feb, 2018 Allergic rhinitis J30.9 [facility] [address] [facility] [id number] [address] [place] [phone] Feb, [facility] [address] [facility] [id number] [address] [place] [address] Jan, Bipolar 1 disorder, mixed F3 1.60 [facility] [address] [facility] [id number] [address] [place], [place] [address] Jan, Low back pain M54.5 ; Hyperl ipidemia, unspecified hyperlipidemia type E78.5 and Bipolar 1 disorder, mixed F31.60 [facility] [address] [facility] [id number] [address] [place] [address] Jan, Bipolar 1 disorder, mixed F3 1.60 [facility] [address] [facility] [id number] [address] [place] [address] Jan, Bipolar 1 disorder, mixed F3 1.60 [facility] [address] [facility] [id number] [address] [place] [address] Jan, Bipolar 1 disorder, mixed F3 1.60 [facility] [address] [place] [id number] [address] [place] [address] Jan, Bipolar 1 disorder, mixed F3 1.60 [facility] [address] [facility] [id number] [address] [place] [address] Dec, Bipolar 1 disorder, mixed F3 1.60 ; Generalized anxiety disorder F41.1 and Other jail (current) drug therapy Z79.899 [facility] [address] [facility] [id number] [address] [place] [address] Dec, Other jail (current) dr ug therapy Z79.899 [facility] [address] [facility] [id number] [address] [place] [address] Dec, Bipolar 1 disorder, mixed F3 1.60 [facility] [address] [facility] [id number] [address] [place] [address] Dec, Bipolar 1 disorder, mixed F3 1.60 [facility] [address] [facility] [id number] [address] [place] [address] Nov, Bipolar 1 disorder, mixed F3 1.60 [facility] [address] [facility] [id number] [address] [place] [phone] 27 Nov, 2017 Bipolar 1 disorder, mixed F3 1.60 [facility] [address] [facility] [id number] [address] [place] [phone] 13 Nov, 2017 Bipolar 1 disorder, mixed F3 1.60 [facility] [address] [place] [id number] [address] [place] [phone] 11 Nov, 2017 Allergic rhinitis J30.9 [facility] [address] [place] [id number] [address] [place] [phone] Nov, Allergic rhinitis J30.9 [place] [address] [place] [id number] [place] [phone] Nov, [place] [address] [place] [id number] [place] [address] Nov, Bipolar 1 disorder, mixed F3 1.60 [place] [address] [address] 06 Nov, 2017 Fibromyalgia M79.7 and Aller gic rhinitis J30.9 [place] [address] [place] [id number] [place] [phone] October, Bipolar 1 disorder, mixed F3 1.60 [facility] [address] [place] [id number] [address] [place] [address] October, Acute nasopharyngitis J00 [facility] [address] [place] [id number] [address] [place] [phone] October, Bitten or stung by nonvenomo us insect and other nonvenomous arthropods, initial encounter W57.XXXA and Insect bite (nonvenomous) of abdominal wall, initial encounter S30.861A [facility] [address] [place] [id number] [address] [place] [address] October, Insect bite (nonvenomous) of abdominal wall, initial encounter S30.861A ; Bitten or stung by nonvenomous insect and other nonvenomous arthropods, initial encounter W57.XXXA ; Allergic rhinitis J30.9 and Low back pain M54.5 [facility] [address] [facility] [id number] [address] [place] [address] October, Bipolar 1 disorder, mixed F3 1.60 [facility] [address] [facility] [id number] [address] [place] [address] October, [facility] [address] [id number] [address] [place] [phone] October, [facility] [address] [facility] [id number] [address] [place] [phone] October, Bipolar 1 disorder, mixed F3 1.60 [facility] [address] [facility] [id number] [address] [place] [address] Sep, Bipolar 1 disorder, mixed F3 1.60 [facility] [address] [place] [id number] [address] [place] [address] Sep, Other chronic pain G89.29 [facility] [address] [facility] [id number] [address] [place] [phone] Sep, [facility] [address] [facility] [id number] [address] [place] [address] Sep, Bipolar 1 disorder, mixed F3 1.60 [facility] [address] [facility] [id number] [address] [place] [address] Sep, Allergic rhinitis J30.9 and Sciatica of left side M54.32 [facility] [address] [facility] [id number] [address] [place] [address] Sep, Bipolar 1 disorder, mixed F3 1.60 [facility] [address] [facility] [id number] [address] [place] [phone] Sep, Bipolar 1 disorder, mixed F3 1.60 and Generalized anxiety disorder F41.1 [facility] [address] [facility] [id number] [address] [place] [phone] Aug, [facility] [address] [facility] [id number] [address] [place] [address] Aug, Bipolar 1 disorder, mixed F3 1.60 [facility] [address] [facility] [id number] [address] [place] [address] Aug, Bipolar 1 disorder, mixed F3 1.60 [facility] [address] [facility] [id number] [address] [place] [phone] Aug, [facility] [address] [facility] [id number] [address] [place] [address] Aug, Generalized anxiety disorder F41.1 [facility] [address] [facility] [id number] [address] [place] [address] Aug, Bipolar 1 disorder, mixed F3 1.60 [facility] [address] [facility] [id number] [address] [place] [phone] Aug, Plantar wart of right foot B 07.0 [facility] [address] [facility] [id number] [address] [place] [address] Aug, Bipolar 1 disorder, mixed F3 1.60 [facility] [address] [facility] [id number] [address] [place] [address] Jul, Bipolar 1 disorder, mixed F3 1.60 [facility] [address] [facility] [id number] [address] [place] [address] Jul, [facility] [address] [facility] [id number] [address] [place] [phone] 14 Jul, 2017 Bipolar 1 disorder, mixed F3 1.60 [facility] [address] [facility] [id number] [address] [place] [phone] 09 Jul, 2017 Generalized anxiety disorder F41.1 [facility] [address] [facility] [id number] [address] [place] [phone] 07 Jul, 2017 Bipolar 1 disorder, mixed F3 1.60 [facility] [address] [facility] [id number] [address] [place] [phone] 07 Jul, 2017 Acute left-sided low back pa in with left-sided sciatica M54.42 [facility] [address] [place] [id number] [address] [place] [phone] 05 Jul, 2017 Coccydynia M53.3 [facility] [address] [place] [id number] [address] [place] [phone] Jun, Bipolar 1 disorder, mixed F3 1.60 [facility] [address] [place] [id number] [address] [place] [phone] Jun, Acute nasopharyngitis J00 [facility] [address] [place] [id number] [place] [address] Jun, Bipolar 1 disorder, mixed F3 1.60 [facility] [address] [address] Jun, Fibromyalgia M79.7 [facility] [address] [place] [id number] [place] [address] Jun, Bipolar 1 disorder, mixed F3 1.60 [facility] [address] [address] Jun, Fibromyalgia M79.7 and Bipol ar 1 disorder, mixed F31.60 [facility] [address] [place] [id number] [address] [place] [phone] May, Bipolar 1 disorder, mixed F3 1.60 ; Generalized anxiety disorder F41.1 and Other jail (current) drug therapy Z79.899 [facility] [address] [place] [id number] [address] [place] [address] May, Bipolar 1 disorder, mixed F3 1.60 [facility] [address] [place] [id number] [address] [place] [phone] 14 May, 2017 Cough R05 and Body aches R52 [facility] [address] [place] [id number] [address] [place] [phone] 10 Dec, 2017 Bladder spasm N32.89 and Acu te cystitis without hematuria N30.00 [facility] [address] [phone] 07 May, 2017 Bipolar 1 disorder, mixed F3 1.60 [facility] [address] [place] [address] 30 Apr, 2017 [place] [address] Apr, Major depressive disorder, r ecurrent episode, moderate F33.1 and Encounter for immunization Z23 [place] [address] Apr, Bipolar 1 disorder, mixed F3 1.60 [place] [address] [address] Apr, Bipolar 1 disorder, mixed F3 1.60 [place] [address] [address] Apr, Bipolar 1 disorder, mixed F3 1.60 [place] [address] [address] Apr, Yeast vaginitis B37.3 [place] [address] [address] 09 Apr, 2017 Bipolar 1 disorder, mixed F3 1.60 [facility] [address] [place] [id number] [address] [place] [address] 07 Apr, [address]itis L03[address] for immunization Z23 [place] [address] [address] Apr, Bipolar 1 disorder, mixed F3 1.60 [place] [address] [place] [id number] Mar, Bipolar 1 disorder, mixed F3 1.60 [place] [address] [address] Mar, Bipolar 1 disorder, mixed F3 1.60 [place] [address] [place] [id number] [address] [place] [address] Mar, Imbalance R26.89 [address] Encount er for immunization Z23 [place] [address] [place] [id number] [address] [place] [address] Mar, Generalized anxiety disorder F41.1 [place] [address] [place] [address] Mar, Bipolar 1 disorder, mixed F3 1.60 [place] [address] [place] [id number] [address] [place] [phone] Mar, Generalized anxiety disorder F41.1 [place] [address] [place] [id number] [address] [place] [address] Mar, Bipolar 1 disorder, mixed F3 1.60 [place] [address] [place] [address] Mar, Bipolar 1 disorder, mixed F3 1.60 [place] [address] [place] [id number] [address] [place] [address] Feb, Bipolar 1 disorder, mixed F3 1.60 [place] [address] [place] [id number] [address] [place] [address] Feb, Bipolar 1 disorder, mixed F3 1.60 and Generalized anxiety disorder F41.1 [place] [address] [place] [id number] [address] [place] [address] Feb, Gastritis without bleeding, unspecified chronicity, unspecified gastritis type K29.70 ; Hammer toe of right foot M20.41 and Other viral warts B07.8 [place] [address] [place] [id number] [address] [place] [address] Feb, Bipolar 1 disorder, mixed F3 1.60 [place] [address] [place] [id number] [address] [place] [address] Feb, Bipolar 1 disorder, mixed F3 1.60 [facility] [address] [facility] [id number] [address] [place] [phone] 05 Feb, 2017 Bipolar 1 disorder, mixed F3 1.60 [facility] [address] [facility] [id number] [address] [place] [phone] 31 Jan, 2017 Encounter for screening mamm ogram for breast cancer Z12.31 ; Other viral warts B07.8 and Allergic rhinitis J30.9 [facility] [address] [facility] [id number] [address] [place] [address] Jan, Bipolar 1 disorder, mixed F3 1.60 [place] [address] [facility] [id number] [address] [place] [address] Jan, Bipolar 1 disorder, mixed F3 1.60 [place] [address] [facility] [id number] [address] [place] [address] 14 Jan, 2017 [place] [address] [place] [id number] [address] [place] [address] Jan, Bipolar 1 disorder, mixed F3 1.60 [place] [id number] [facility] [id number] [address] [place] [address] Jan, Bipolar 1 disorder, mixed F3 1.60 [place] [address] [facility] [id number] [address] [place] [phone] 02 Jan, 2017 Allergic rhinitis J30.9 ; He maturia R31.9 and Colon cancer screening Z12.11 [place] [address] [facility] [id number] [address] [place] [address] Dec, Bipolar 1 disorder, mixed F3 1.60 [facility] [address] [facility] [id number] [address] [place] [phone] 18 Dec, 2016 Bipolar 1 disorder, mixed F3 1.60 ; Generalized anxiety disorder F41.1 and 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 container terminal (current) drug therapy Z79.899 [facility] [address] [facility] [id number] [address] [place] [id number] 17 Dec, 2016 Bipolar 1 disorder, mixed F3 1.60 [place] [address] [facility] [id number] [address] [place] [address] Dec, Bipolar 1 disorder, mixed F3 1.60 [facility] [address] [facility] [id number] [address] [place] [address] Dec, Bipolar 1 disorder, mixed F3 1.60 [facility] [address] [facility] [id number] [address] [place] [address] Dec, Low back pain M54.5 and Recu rrent urinary tract infection N39.0 [facility] [address] [facility] [id number] [address] [place] [address] Nov, Bipolar 1 disorder, mixed F3 1.60 [facility] [address] [facility] [id number] [address] [place] [address] Nov, Bipolar 1 disorder, mixed F3 1.60 [facility] [address] [place] [id number] [address] [place] [address] Nov, Bipolar 1 disorder, mixed F3 1.60 [facility] [address] [facility] [id number] [address] [place] [address] Nov, Bipolar 1 disorder, mixed F3 1.60 [facility] [address] [facility] [id number] [address] [place] [address] Nov, [facility] [address] [facility] [id number] [address] [place] [address] Nov, Anesthesia of skin R20.0 ; F requent UTI N39.0 ; Tobacco abuse Z72.0 and Colon cancer screening Z12.11 [facility] [address] [facility] [id number] [address] [place] [phone] Nov, Bipolar 1 disorder, mixed F3 1.60 [facility] [address] [facility] [id number] [address] [place] [address] October, Bipolar 1 disorder, mixed F3 1.60 [facility] [address] [place] [id number] [address] [place] [phone] October, Bipolar 1 disorder, mixed F3 1.60 [facility] [address] [place] [address] October, Bipolar 1 disorder, mixed F3 1.60 [facility] [address] [place] [id number] [address] [place] [phone] October, Bipolar 1 disorder, mixed F3 1.60 [facility] [address] [address] October, Bipolar 1 disorder, mixed F3 1.60 [place] [address] [place] [address] October, Cervicalgia M54.2 and Bipola r 1 disorder, mixed F31.60 [place] [address] [place] [id number] [address] [place] [phone] October, Hypertension I10 ; Hyperlipi demia, unspecified hyperlipidemia type E78.5 and Family history of thyroid disease Z83.49 [place] [address] [place] [phone] October, [place] [address] [place] [id number] [place] [phone] October, Hypertension I10 ; Hyperlipi demia, unspecified hyperlipidemia type E78.5 and Family history of thyroid problem Z83.49 [place] [address] [place] [phone] October, Bipolar 1 disorder, mixed F3 1.60 [place] [address] [place] [id number] [place] [phone] Sep, Bipolar 1 disorder, mixed F3 1.60 [place] [address] [place] [id number] [place] [id number] Sep, Bipolar 1 disorder, mixed F3 1.60 [facility] [address] [place] [id number] [place] [phone] Sep, Bipolar 1 disorder, mixed F3 1.60 [place] [address] [place] [address] Sep, History of colon polyps Z86. 010 and Hematochezia K92.1 [facility] [address] [place] [id number] [place] [id number] Sep, Major depressive disorder, r ecurrent episode, moderate F33.1 [place] [address] [address] Sep, Bipolar 1 disorder, mixed F3 1.60 [place] [address] [address] Aug, Hot flashes due to menopause N95.1 [place] [address] [address] Aug, Bipolar 1 disorder, mixed F3 1.60 [place] [address] [address] Aug, [place] [address] [address] Aug, Bipolar 1 disorder, mixed F3 1.60 [place] [address] [address] Aug, Bipolar 1 disorder, mixed F3 1.60 [place] [address] [address] Aug, Hot flashes due to menopause N95.1 ; Cervicalgia M54.2 and Ataxia R27.0 [facility] [address] [address] Jul, Bipolar 1 disorder, mixed F3 1.60 [place] [address] [place] [id number] [place], [place] [phone] Jul, Bipolar 1 disorder, mixed F3 1.60 [place] [address] [address] Jul, Bipolar 1 disorder, mixed F3 1.60 [place] [address] [address] 13 Jul, 2016 Bipolar 1 disorder, mixed F3 1.60 [place] [address]25[address] 10 Jul, 2016 Bipolar 1 disorder, mixed F3 1.60 [place] [address] 08 Jul, 2016 Cervicalgia M54.2 ; Tremor R 25.1 ; Hearing abnormally acute, unspecified laterality H93.239 ; Alopecia L65.9 ; Encounter for immunization Z23 and Family history of thyroid disease Z83.49 [place] [address] [place] [id number] 06 Jul, 2016 Bipolar 1 disorder, mixed F3 1.60 [place] [address] [place] [address] Jun, [place] [address] Jun, Hearing disorder, unspecifie d laterality H93.299 [place] [address] [place] [id number] Jun, Bipolar 1 disorder, mixed F3 1.60 [place] [address] [place] [address] Jun, Bipolar 1 disorder, mixed F3 1.60 [place] [address] [address] Jun, Allergic rhinitis J30.9 [place] [address] [place] [id number] Jun, Bipolar 1 disorder, mixed F3 1.60 [place] [address] [address] Jun, Bipolar 1 disorder, mixed F3 1.60 [place] [id number] [id number] [address] [place] [address] Jun, Allergic rhinitis J30.9 [facility] [address] [id number] [address] [place] [address] Jun, Allergic rhinitis J30.9 [facility] [address] [facility] [id number] [address] [place] [address] Jun, Bipolar 1 disorder, mixed F3 1.60 [facility] [address] [id number] [address] [place] [address] May, Bipolar 1 disorder, mixed F3 1.60 [facility] [address] [id number] [address] [place] [address] May, Bipolar 1 disorder, mixed F3 1.60 [facility] [address] [facility] [id number] [address] [place] [address] May, [facility] [address] [facility] [id number] [address] [place] [address] May, Bipolar 1 disorder, mixed F3 1.60 [facility] [address] [id number] [address] [place] [address] May, Bipolar 1 disorder, mixed F3 1.60 [facility] [address] [facility] [id number] [address] [place] [address] May, [facility] [address] [facility] [id number] [address] [place] [address] May, [facility] [address] [id number] [address] [place] [address] May, [facility] [address] [facility] [id number] [address] [place] [address] May, Abdominal pain, unspecified location R10.9 [facility] [address] [facility] [id number] [address] [place] [address] May, [facility] [address] [facility] [id number] [address] [place] [address] Apr, Hematuria R31.9 ; Ataxia R27 .0 and Hearing loss, unspecified laterality H91.90 [facility] [address] [place] [id number] [address] [place] [address] Apr, Bipolar 1 disorder, mixed F3 1.60 [facility] [address] [place] [id number] [address] [place] [address] Apr, Acute effusion of both middl e ears H65.193 [facility] [address] [place] [id number] [address] [place] [address] Apr, Hematuria R31.9 and Pyelonep hritis N12 [place] [address] [place] [id number] [place] [address] Apr, [place] [address] [address] Mar, Bipolar 1 disorder, mixed F3 1.60 [facility] [address] [address] Mar, [facility] [address] [address] Mar, Bipolar 1 disorder, mixed F3 1.60 [place] [address] [address] Mar, Bipolar 1 disorder, mixed F3 1.60 [place] [address] [address] Mar, Encounter for immunization Z 23 and Gastritis without bleeding, unspecified chronicity, unspecified gastritis type K29.70 [facility] [address] [place] [id number] [address] [place] [address] Mar, Bipolar 1 disorder, mixed F3 1.60 and Grief F43.20 [place] [address] [place] [id number] [address] [place] [address] Mar, Gastritis without bleeding, unspecified chronicity, unspecified gastritis type K29.70 [facility] [address] [place] [id number] [address] [place] [address] Mar, Bipolar 1 disorder, mixed F3 1.60 [place] [address] [place] [id number] [address] [place], [place] [address] 05 Mar, 2016 Gastritis without bleeding, unspecified chronicity, unspecified gastritis type K29.70 [facility] [address] [place] [id number] [address] [place] [address] Mar, [place] [address] [place] [id number] [place] [address] Feb, Bipolar 1 disorder, mixed F3 1.60 [place] [address] Feb, Bipolar 1 disorder, mixed F3 1.60 and Grief F43.20 [place] [address] [address] Feb, Gastritis without bleeding, unspecified chronicity, unspecified gastritis type K29.70 [place] [address] [place] [id number] [address] [place] [address] 14 Feb, 2016 Bipolar 1 disorder, mixed F3 1.60 [facility] [address] [place] [id number] [address] [place] [address] 09 Feb, 2016 Gastroesophageal reflux dise ase, esophagitis presence not specified K21.9 [facility] [address] [place] [id number] [address] [place] [address] Jan, Bipolar 1 disorder, mixed F3 1.60 [facility] [address] [place] [id number] [address] [place] [address] Jan, Bipolar 1 disorder, mixed F3 1.60 and Unsteady gait R26.81 [place] [address] [place] [id number] [address] [place] [address] Jan, Bipolar 1 disorder, mixed F3 1.60 [facility] [address] [place] [address] Jan, Bipolar 1 disorder, mixed F3 1.60 and 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 container terminal (current) 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 therapy Z79.899 [facility] [address] [facility] [id number] [address] [place] [address] Jan, Bipolar 1 disorder, mixed F3 1.60 [facility] [address] [place] [id number] [address] [place] [address] Jan, Bipolar 1 disorder, mixed F3 1.60 [place] [address] [place] [id number] [address] [place] [address] Jan, Bipolar 1 disorder, mixed F3 1.60 ; Grief F43.20 and 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 container terminal (current) 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 therapy Z79.899 [place] [id number] [place] [id number] [address] [place] [address] Jan, Bipolar 1 disorder, mixed F3 1.60 [place] [address] [place] [id number] [address] [place] [address] Dec, [place] [address] [place] [id number] [address] [place] [address] Dec, Bipolar 1 disorder, mixed F3 1.60 ; Vitamin D deficiency, unspecified E55.9 ; H/O allergic rhinitis Z87.09 ; Other chronic pain G89.29 and Dorsalgia, unspecified M54.9 [place] [address] [place] [id number] [address] [place] [address] Dec, [place] [address] [place] [id number] [address] [place] [address] Dec, Bipolar 1 disorder, mixed F3 1.60 [place] [address] [place] [id number] [address] [place] [address] Dec, Major depressive disorder, r ecurrent episode, moderate F33.1 [place] [address] [place] [id number] [address] [place] [address] Dec, Major depressive disorder, r ecurrent episode, moderate F33.1 [facility] [address] [facility] [id number] [address] [place] [address] Nov, [facility] [address] [facility] [id number] [address] [place] [address] Nov, Bipolar 1 disorder, mixed F3 1.60 [place] [address] [facility] [id number] [address] [place] [address] Nov, Major depressive disorder, r ecurrent episode, moderate F33.1 [place] [address] [facility] [id number] [address] [place] [address] Nov, Cervicalgia M54.2 ; Arthralg ia of hip, unspecified laterality M25.559 ; Allergic rhinitis J30.9 and Hormone replacement therapy Z79.890 [facility] [address] [facility] [id number] [address] [place] [address] Nov, Other seasonal allergic rhin itis J30.2 [place] [address] [facility] [id number] [address] [place] [address] October, Major depressive disorder, r ecurrent episode, moderate F33.1 [place] [address] [facility] [id number] [address] [place] [address] October, Major depressive disorder, r ecurrent episode, moderate F33.1 and Arthralgia of hip, unspecified laterality M25.559 [place] [address] [facility] [id number] [address] [place] [address] October, Grief F43.20 ; Hypertension I10 ; Hyperlipidemia, unspecified hyperlipidemia type E78.5 ; Other chronic pain G89.29 and Allergic rhinitis, unspecified allergic rhinitis type J30.9 [place] [address] [facility] [id number] [address] [place] [address] October, Major depressive disorder, r ecurrent episode, moderate F33.1 [place] [address] [facility] [id number] [address] [place] [address] Sep, Major depressive disorder, r ecurrent episode, moderate F33.1 [facility] [address] [facility] [id number] [address] [place] [address] Sep, [facility] [address] [facility] [id number] [address] [place] [address] Sep, Major depressive disorder, r ecurrent episode, moderate F33.1 [facility] [address] [facility] [id number] [address] [place] [address] Sep, Grief F43.20 [facility] [address] [facility] [id number] [address] [place] [address] Aug, Major depressive disorder, r ecurrent episode, moderate F33.1 [facility] [address] [facility] [id number] [address] [place] [address] Aug, Bipolar 1 disorder, mixed F3 1.60 [facility] [address] [facility] [id number] [address] [place] [address] Aug, Allergic rhinitis J30.9 ; Ce rvicalgia M54.2 and Low back pain M54.5 [facility] [address] [facility] [id number] [address] [place] [address] Aug, Major depressive disorder, r ecurrent episode, moderate F33.1 [facility] [address] [facility] [id number] [address] [place] [address] Aug, Sinusitis J32.9 and Tobacco 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 [facility] [address] [facility] [id number] [address] [place] [address] Aug, [facility] [address] [facility] [id number] [address] [place] [address] Aug, Depressive disorder, not els ewhere classified F32.9 ; Hormone replacement therapy Z79.[address] scan, head R93.0 [facility] [address] [facility] [id number] [address] [place] [address] Aug, Major depressive disorder, r ecurrent episode, moderate F33.1 [facility] [address] [facility] [id number] [address] [place] [address] Jul, Major depressive disorder, r ecurrent episode, moderate F33.1 [facility] [address] [facility] [id number] [place] [address] Jul, Abdominal pain R10.9 and Hyp ertension I10 [facility] [address] [place] [id number] [place] [address] Jul, [facility] [address] [place] [id number] [place] [address] Jul, Major depressive disorder, r ecurrent episode, moderate F33.1 [facility] [address] [place] [id number] [place] [address] 04 Jul, 2015 [facility] [address] [address] Jul, [facility] [address] [address] Jun, [facility] [address] [address] Jun, Depressive disorder, not els ewhere classified F32.9 [facility] [address] [place] [id number] [address] [place] [address] Jun, [facility] [address] [address] Jun, [facility] [address] [address] Jun, Arthralgia of hip, unspecifi ed laterality M25.559 ; Bruising, spontaneous R23.3 and Night sweats R61 [facility] [address] [place] [id number] [address] [place] [address] Jun, [facility] [address] [address] Jun, [facility] [address] [id number] [address] [place] [address] May, [facility] [address] [id number] [address] [place] [address] May, Myalgia M79.1 and Screening, lipid Z13.220 [facility] [address] [facility] [id number] [address] [place] [address] Apr, Status post cervical spinal fusion Z98.1 ; Fibromyalgia M79.7 and Unsteady gait R26.81 [facility] [address] [id number] [address] [place] [address] Nov, [facility] [address] [facility] [id number] [address] [place] [address] Nov, [facility] [address] [facility] [id number] [address] [place] [address] October, [facility] [address] [facility] [id number] [address] [place] [address] October, [facility] [address] [facility] [id number] [address] [place] [address] October, [facility] [address] [facility] [id number] [address] [place] [address] October, [facility] [address] [facility] [id number] [address] [place] [address] October, [facility] [address] [facility] [id number] [address] [place] [address] October, Dysuria 788.1 ; Nausea 787.0 2 and Urinary tract infection 599.0 [facility] [address] [id number] [address] [place] [address] Sep, [facility] [address] [facility] [id number] [address] [place] [address] Sep, [facility] [address] [facility] [id number] [address] [place] [phone] 25 Aug, 2014 [facility] [address] [id number] [facility] [place] [address] 25 Aug, 2014 [facility] [address] [id number] [address] [place] [address], [place] [address] 24 Aug, 2014 [facility] [address] [id number] [address] [place] [address], [place] [address] 24 Aug, 2014 [facility] [address] [id number] [address] [place] [address], [place] [address] 23 Aug, 2014 [facility] [address] [id number] [address] [place] [address], [place] [address] 19 Aug, 2014 [facility] [address] [id number] [address] [place] [address], [place] [address] 19 Aug, 2014 [facility] [address] [id number] [address] [place] [address], [place] [address] 19 Aug, 2014 [facility] [address] [id number] [address] [place] [address], [place] [address] 19 Aug, 2014 [facility] [address] [id number] [address] [place] [address], [place] [address] 18 Aug, 2014 [facility] [address] [id number] [address] [place] [address], [place] [address] 18 Aug, 2014 [facility] [address] [id number] [address] [place] [address], [place] [address] 13 Aug, 2014 [facility] [address] [id number] [address] [place] [address], [place] [address] 13 Aug, 2014 [facility] [address] [id number] [address] [place] [address], [place] [address] 11 Aug, 2014 [facility] [address] [id number] [address] [place] [address], [place] [address] 11 Aug, 2014 [facility] [address] [id number] [address] [place] [address], [place] [address] 06 Aug, 2014 [facility] [address] [id number] [address] [place] [address], [place] [address] Aug, 2014 [facility] [address] [id number] [address] [place] [address], [place] [address] Aug, [facility] [address] [id number] [address] [place] [address], [place] [address] Aug, 2014 [facility] [address] [id number] [address] [place] [address], [place] [address] Aug, [facility] [address] [id number] [address] [place] [address], [place] [address] Aug, [facility] [address] [id number] [address] [place] [address], [place] [address] Aug, [facility] [address] [id number] [address] [place] [address], [place] [address] Jul, [facility] [address] [id number] [address] [place] [address], [place] [address] Jul, 2014 [facility] [address] [id number] [address] [place] [address], [place] [address] Jul, [facility] [address] [id number] [address] [place] [address], [place] [address] Jul, [facility] [address] [id number] [address] [place] [address], [place] [address] Jul, [facility] [address] [id number] [address] [place] [address], [place] [address] Jul, 2014 [facility] [address] [id number] [address] [place] [address], [place] [address] Jul, [facility] [address] [id number] [address] [place] [address], [place] [address] Jul, 2014 [facility] [address] [id number] [address] [place] [address], [place] [address] Jul, 2014 [facility] [address] [id number] [address] [place] [address] Jul, 2014 [facility] [address] [id number] [address] [place] [address], [place] [address] Jul, 2014 [facility] [address] [id number] [address] [place] [address], [place] [address] Jul, 2014 [facility] [address] [id number] [address] [place] [address], [place] [address] Jul, 2014 [facility] [address] [id number] [address] [place] [address], [place] [address] Jul, [facility] [address] [id number] [address] [place] [address], [place] [address] Jun, [facility] [address] [id number] [address] [place] [address], [place] [address] Jun, [facility] [address] [id number] [address] [place] [address], [place] [address] Jun, [facility] [address] [id number] [address] [place] [address], [place] [address] Jun, [facility] [address] [id number] [address] [place] [address], [place] [address] Jun, [facility] [address] [id number] [address] [place] [address], [place] [address] Jun, [facility] [address] [id number] [address] [place] [address], [place] [address] May, [facility] [address] [id number] [address] [place] [id number] May, [facility] [address] [id number] [address] [place] [address], [place] [address] May, [facility] [address] [id number] [address] [place] [address], [place] [address] May, [facility] [address] [id number] [address] [place] [address], [place] [address] May, [facility] [address] [id number] [address] [place] [address], [place] [address] May, [facility] [address] [id number] [address] [place] [address], [place] [address] Apr, [facility] [address] [id number] [address] [place] [address], [place] [address] Apr, [facility] [address] [id number] [address] [place] [address], [place] [address] Apr, [facility] [address] [id number] [address] [place] [address], [place] [address] Apr, [facility] [address] [id number] [address] [place] [address], [place] [address] Apr, [facility] [address] [id number] [address] [place] [address], [place] [address] Apr, [facility] [address] [id number] [address] [place] [address], [place] [address] Mar, [facility] [address] [id number] [address] [place] [address], [place] [address] Mar, [facility] [address] [id number] [address] [place] [address], [place] [address] Mar, [facility] [address] [id number] [address] [place] [address], [place] [address] Mar, [facility] [address] [id number] [address] [place] [address], [place] [address] Mar, [facility] [address] [id number] [address] [place] [address], [place] [address] Mar, [facility] [address] [id number] [address] [place] [address], [place] [address] Mar, [facility] [address] [id number] [address] [place] [address], [place] [address] Mar, [facility] [address] [id number] [address] [place] [address], [place] [address] Mar, [facility] [address] [id number] [address] [place] [address], [place] [address] Mar, [facility] [address] [id number] [address] [place] [address], [place] [address] Mar, [facility] [address] [id number] [address] [place] [address], [place] [address] Mar, [facility] [address] [id number] [address] [place] [address], [place] [address] 30 Feb, 2014 [facility] [address] [id number] [address] [place] [address], [place] [address] 29 Feb, 2014 [facility] [address] [id number] [address] [place] [address], [place] [address] Feb, [facility] [address] [id number] [address] [place] [address], [place] [address] Feb, [facility] [address] [id number] [address] [place] [address], [place] [address] Feb, [facility] [address] [id number] [address] [place] [address], [place] [address] Feb, [facility] [address] [id number] [address] [place] [address], [place] [address] Feb, [facility] [facility] [address] [id number] [address] [place] [address], [place] [address] Jan, [facility] [address] [id number] [address] [place] [address], [place] [address] Jan, [facility] [address] [id number] [address] [place] [address], [place] [address] Jan, [facility] [address] [id number] [address] [place] [address], [place] [address] Dec, [facility] [address] [id number] [address] [place] [address], [place] [address] Dec, [facility] [address] [id number] [address] [place] [address], [place] [address] Dec, [facility] [address] [id number] [address] [place] [address], [place] [address] Dec, [facility] [address] [id number] [address] [place] [address], [place] [address] Sep, [facility] [address] [id number] [address] [place] [address], [place] [address] Sep, [facility] [address] [id number] [address] [place] [address], [place] [address] Sep, [facility] [address] [id number] [address] [place] [address], [place] [address] Sep, [facility] [address] [id number] [address] [place] [address], [place] [address] Sep, [facility] [address] [id number] [address] [place] [address], [place] [address] Sep, [facility] [address] [id number] [address] [place] [address], [place] [address] Sep, [facility] [address] [id number] [address] [place] [address], [place] [address] Sep, [facility] [address] [id number] [address] [place] [address], [place] [address] Aug, [facility] [address] [id number] [address] [place] [address], [place] [address] Aug, [facility] [address] [id number] [address] [place] [address], [place] [address] May, [facility] [address] [id number] [address] [place] [address], [place] [address] May, [facility] [address] [id number] [address] [place] [address], [place] [address] Apr, [facility] [address] [id number] [address] [place] [address], [place] [address] Apr, [facility] [address] [id number] [address] [place] [address], [place] [address] Apr, [facility] [address] [id number] [address] [place] [address], [place] [address] Apr, [facility] [address] [id number] [address] [place] [address], [place] [address] Apr, [facility] [address] [id number] [address] [place] [address], [place] [address] Apr, [facility] [address] [id number] [address] [place] [address], [place] [address] May, [facility] [address] [id number] [address] [place] [address], [place] [address] 18 May, 2012 [facility] [address] [id number] [address] [place] [address], [place] [address] 15 May, 2012 [facility] [address] [id number] [address] [place] [address], [place] [address] 15 May, 2012 [facility] [address] [id number] [address] [place] [address], [place] [address] May, [facility] [address] [id number] [address] [place] [address], [place] [address] May, [facility] [address] [id number] [address] [place] [address], [place] [address] Apr, [facility] [address] [id number] [address] [place] [address], [place] [address] Apr, [facility] [address] [id number] [address] [place] [address], [place] [address] Apr, [facility] [address] [id number] [address] [place] [address], [place] [address] Apr, [facility] [address] [id number] [address] [place] [address], [place] [address] 08 Apr, 2012 [facility] [address] [id number] [address] [place] [address] 08 Apr, 2012 [facility] [address] [id number] [address] [place] [address], [place] [address] Apr, [facility] [address] [id number] [address] [place] [address] Apr, [facility] [address] [id number] [address] [place] [address] Apr, [facility] [address] [id number] [address] [place] [address] Apr, [facility] [address] [id number] [address] [place] [address], [place] [address] Mar, [facility] [address] [id number] [address] [place] [address] Mar, [facility] [address] [id number] [address] [place] [address] Mar, [facility] [address] [id number] [address] [place] [address] Mar, [facility] [address] [id number] [address] [place] [address] Mar, [facility] [address] [id number] [address] [place] [address] Mar, [facility] [address] [id number] [address] [place] [address] Mar, [facility] [address] [id number] [address] [place] [address] Mar, [facility] [address] [id number] [address] [place] [address] Mar, [facility] [address] [id number] [address] [place] [address] 25 Feb, 2012 [facility] [address] [id number] [address] [place] [address] 16 Sep2011 [facility] [address] [id number] [address] [place] [address], [place] [address] Feb, [facility] [address] [id number] [address] [place] [address], [place] [address] Jan, [facility] [address] [id number] [address] [place] [address], [place] [address] Jan, [facility] [address] [id number] [address] [place] [address], [place] [address] Jan, [facility] [address] [id number] [address] [place] [address], [place] [address] Jan, [facility] [address] [id number] [address] [place] [address], [place] [address] Jan, [facility] [address] [id number] [address] [place] [address], [place] [address] Jan, [facility] [address] [id number] [address] [place] [address], [place] [address] Jan, [facility] [address] [id number] [address] [place] [address], [place] [address] Jan, [facility] [address] [id number] [address] [place] [address], [place] [address] Jan, [facility] [address] [id number] [address] [place] [address], [place] [address] Jan, [facility] [address] [id number] [address] [place] [address], [place] [address] Dec, [facility] [address] [id number] [address] [place] [address], [place] [address] Dec, [facility] [address] [id number] [address] [place] [address], [place] [address] Dec, [facility] [address] [id number] [address] [place] [address], [place] [address] Dec, [facility] [address] [id number] [address] [place] [address], [place] [address] Nov, [facility] [address] [id number] [address] [place] [address], [place] [address] 08 Nov, 2011 [facility] [address] [id number] [address] [place] [address], [place] [address] Nov, [facility] [address] [id number] [address] [place] [address], [place] [address] October, [facility] [address] [id number] [address] [place] [address], [place] [address] October, [facility] [address] [id number] [address] [place] [address], [place] [address] October, [facility] [address] [id number] [address] [place] [address], [place] [address] October, [facility] [address] [id number] [address] [place] [address], [place] [address] October, [facility] [address] [id number] [address] [place] [address], [place] [address] October, [facility] [address] [id number] [address] [place] [address], [place] [address] Aug, [facility] [address] [id number] [address] [place] [address], [place] [address] Mar, [facility] [address] [id number] [address] [place] [address], [place] [address] Nov, [facility] [address] [id number] [address] [place] [address], [place] [address] May, [facility] [address] [id number] [address] [place] [address], [place] [address] May, [facility] [address] [id number] [address] [place] [address], [place] [address] Apr, [facility] [address] [id number] [address] [place] [address], [place] [address] 15 Mar, 2010 [facility] [address] [id number] [address] [place] [address], [place] [address] 15 Mar, 2010 IMMUNIZATIONS No Known Immunizations SOCIAL HISTORY Never Assessed REASON FOR VISIT BH f/u PLAN OF CARE Activity Details Follow Up 2 Weeks Reason: F/U VITAL SIGNS MEDICATIONS Unknown Medications RESULTS No Results PROCEDURES Procedure Date Ordered Result Body Site [facility] VISIT MENTAL [facility] ESTAB PT Feb 15, 2018 Psychotherapy, patient &/family, 45 minutes, established patient Feb 15, 2018 INSTRUCTIONS MEDICATIONS ADMINISTERED No Known Medications [...]
--- OUTSIDE RECORDS SUMMARY | 2019-06-19 05:58 | XMS REPORT ---
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 Name Role Phone DANIELLE SAMANO Unavailable PROBLEMS Type Condition ICD9-CM Code [id number] Code Onset Dates Condition S tatus SNOMED Code Problem Hormone replacement therapy Z79.890 Ac tive 274593550 Problem Abnormal CT scan, head R93.0 Active 558329181 Problem Hot flashes due to menopause N95.1 A ctive 882797559 Problem Sensorineural hearing loss (SNHL) of both ears H90 .3 Active 478734838 Problem History of colon polyps Z86.010 Active 317310632 Problem Bruising, spontaneous R23.3 Active 601024823 Problem Generalized anxiety disorder F41.1 A ctive 03792007 Problem Hammer toe of right foot M20.41 Activ e 368168359 Problem Hematuria, unspecified type R31.9 Ac tive 58298822 Problem Plantar wart of right foot B07.0 Act mitchell [id number] Problem Acute left-sided low back pain with left-sided sciatica M54.42 Active 651393224 Problem Hypertension I10 Active 6248959 3 Problem Arthralgia of hip, unspecified laterality M25.559 Active 82011195 Problem Night sweats R61 Active 2341493 0 Problem Major depressive disorder, recurrent episode, moderate F33.1 Active 204495379 Problem Imbalance R26.89 Active 419453101 Problem Bladder spasm N32.89 Active 922872 006 Problem Fibromyalgia M79.7 Active 9283264 7 Problem Other chronic pain G89.29 Active 8 9513319 Problem Gastritis without bleeding, unspecified chronicity, unspecified gastritis type K29.70 Active 782305598 Problem Hyperlipidemia, unspecified hyperlipidemia type E7 8.5 Active 35970476 Problem Grief F43.20 Active 08282373 Problem Ataxia R27.0 Active 62617169 Problem Allergic rhinitis J30.9 Active 61 187007 Problem Bipolar 1 disorder, mixed F31.60 Acti ve 09268239 Problem Hearing loss, unspecified laterality H91.90 Active 95202861 ALLERGIES No Information ENCOUNTERS Encounter Location Date Diagnosis [facility] [place] [id number] [place] [address] Sep, [facility] [place] [id number] [place] [address] Sep, [facility] [place] [id number] [place] [address] Sep, [facility] [place] [address] [address] Sep, [facility] [place] [id number] [place] [address] Aug, [facility] [place] [id number] [place] [address] Aug, Bipolar 1 disorder, mixed F3 1.60 [facility] [place] [id number] [place] [address] Aug, Bipolar 1 disorder, mixed F3 1.60 [facility] [place] [id number] [place] [address] Aug, [facility] [place] [id number] [place] [address] Aug, Generalized anxiety disorder F41.1 [facility] [place] [id number] [place] [id number] Aug, Bipolar 1 disorder, mixed F3 1.60 [facility] [place] [id number] [place] [address] Aug, Plantar wart of right foot B 07.0 [facility] [place] [address] [facility] [id number] [address] [place] [address] Aug, Bipolar 1 disorder, mixed F3 1.60 [facility] [place] [id number] [place] [address] 22 Jul, 2017 Bipolar 1 disorder, mixed F3 1.60 [facility] [place] [address] [facility] [id number] [address] [place] [address] Jul, [facility] [place] [address] [facility] [id number] [address] [place] [address] 14 Jul, 2017 Bipolar 1 disorder, mixed F3 1.60 [facility] [place] [id number] [place] [address] 09 Jul, 2017 Generalized anxiety disorder F41.1 [facility] [place] [id number] [place] [address] 07 Jul, 2017 Bipolar 1 disorder, mixed F3 1.60 [facility] [place] [id number] [place] [address] 07 Jul, 2017 Acute left-sided low back pa in with left-sided sciatica M54.42 [facility] [place] [id number] [place] [address] 05 Jul, 2017 Coccydynia M53.3 [facility] [place] [id number] [place] [address] Jun, Bipolar 1 disorder, mixed F3 1.60 [facility] [id number] [place] [address] Jun, Acute nasopharyngitis J00 [facility] [place] [id number] [place] [address] Jun, Bipolar 1 disorder, mixed F3 1.60 [facility] [place] [id number] [place] [address] Jun, Fibromyalgia M79.7 [facility] [place] [id number] [place] [address] Jun, Bipolar 1 disorder, mixed F3 1.60 [facility] [place] [id number] [place] [address] Jun, Fibromyalgia M79.7 and Bipol ar 1 disorder, mixed F31.60 [place] [address] [place] [address] May, Bipolar 1 disorder, mixed F3 1.60 ; Generalized anxiety disorder F41.1 and Other management associate (current) drug therapy Z79.899 [place] [address] [address] May, Bipolar 1 disorder, mixed F3 1.[address] [facility] [address] [address] May, Cough R05 and Body aches R52 [facility] [place] [address] [address] 10 May, 2017 Bladder spasm N32.89 and Acu te cystitis without hematuria N30.00 [place] [address] [address] May, Bipolar 1 disorder, mixed F3 1.60 [place] [address] [address] Apr, [place] [address] [address] Apr, Major depressive disorder, r ecurrent episode, moderate F33.1 and Encounter for immunization Z23 [place] [address] [address] Apr, Bipolar 1 disorder, mixed F3 1.60 [place] [address] [address] Apr, Bipolar 1 disorder, mixed F3 1.60 [place] [address] [address] 16 Apr, 2017 Bipolar 1 disorder, mixed F3 1.60 [place] [address] [address] Apr, Yeast vaginitis B37.3 [facility] [place] [address] [facility] [id number] [address] [place] [address] Apr, Bipolar 1 disorder, mixed F3 1.60 [facility] [address] [facility] [id number] [address] [place] [address] 07 Apr, 2017 Cellulitis L03.[address] for immunization Z23 [facility] [place] [address] [facility] [id number] [address] [place] [address] Apr, Bipolar 1 disorder, mixed F3 1.60 [facility] [place] [id number] [place] [address] Mar, Bipolar 1 disorder, mixed F3 1.60 [facility] [place] [id number] [place] [address] Mar, Bipolar 1 disorder, mixed F3 1.60 [facility] [place] [id number] [place] [address] Mar, Imbalance R26.89 and Encount er for immunization Z23 [facility] [place] [id number] [place] [address] Mar, Generalized anxiety disorder F41.1 [facility] [place] [id number] [place] [address] Mar, Bipolar 1 disorder, mixed F3 1.60 [facility] [place] [id number] [place] [address] Mar, Generalized anxiety disorder F41.1 [facility] [place] [id number] [place] [address] Mar, Bipolar 1 disorder, mixed F3 1.60 [facility] [place] [id number] [place] [address] Mar, Bipolar 1 disorder, mixed F3 1.60 [facility] [place] [id number] [place] [address] Feb, Bipolar 1 disorder, mixed F3 1.60 [place] [address] [facility] [id number] [address] [place] [address] Feb, Bipolar 1 disorder, mixed F3 1.60 and Generalized anxiety disorder F41.1 [place] [address] [facility] [id number] [address] [place] [address] Feb, Gastritis without bleeding, unspecified chronicity, unspecified gastritis type K29.70 ; Hammer toe of right foot M20.41 and Other viral warts B07.8 [place] [address] [facility] [id number] [address] [place] [address] 20 Feb, 2017 Bipolar 1 disorder, mixed F3 1.60 [place] [id number] [place] [address] Feb, Bipolar 1 disorder, mixed F3 1.60 [place] [id number] [place] [address] 05 Feb, 2017 Bipolar 1 disorder, mixed F3 1.60 [place] [id number] [place] [address] Jan, Encounter for screening mamm ogram for breast cancer Z12.31 ; Other viral warts B07.8 and Allergic rhinitis J30.9 [place] [id number] [place] [address] Jan, Bipolar 1 disorder, mixed F3 1.60 [place] [address] [facility] [id number] [address] [place] [address] Jan, Bipolar 1 disorder, mixed F3 1.60 [place] [address] [facility] [id number] [address] [place] [address] Jan, [place] [id number] [place] [address] Jan, Bipolar 1 disorder, mixed F3 1.60 [place] [id number] [place] [address] Jan, Bipolar 1 disorder, mixed F3 1.60 [place] [id number] [place] [address] Jan, Allergic rhinitis J30.9 ; He maturia R31.9 and Colon cancer screening Z12.11 [facility] [place] [id number] [place] [address] Dec, Bipolar 1 disorder, mixed F3 1.60 [place] [id number] [place] [address] Dec, Bipolar 1 disorder, mixed F3 1.60 ; Generalized anxiety disorder F41.1 and Other snf (current) drug therapy Z79.899 [place] [id number] [place] [address] Dec, Bipolar 1 disorder, mixed F3 1.60 [place] [id number] [place] [address] Dec, Bipolar 1 disorder, mixed F3 1.60 [place] [id number] [place] [address] Dec, Bipolar 1 disorder, mixed F3 1.60 [place] [id number] [place] [address] Dec, Low back pain M54.5 and Recu rrent urinary tract infection N39.0 [place] [id number] [place] [address] Nov, Bipolar 1 disorder, mixed F3 1.60 [place] [id number] [place] [address] Nov, Bipolar 1 disorder, mixed F3 1.60 [place] [id number] [place] [address] Nov, Bipolar 1 disorder, mixed F3 1.60 [place] [id number] [place] [address] Nov, Bipolar 1 disorder, mixed F3 1.60 [place] [address] [id number] [place] [address] Nov, [place] [address] [address] Nov, Anesthesia of skin R20.0 ; F requent UTI N39.0 ; Tobacco abuse Z72.0 and Colon cancer screening Z12.11 [place] [address] [id number] [place] [address] Nov, Bipolar 1 disorder, mixed F3 1.60 [place] [address] [id number] [place] [address] October, Bipolar 1 disorder, mixed F3 1.60 [place] [address] [address] October, Bipolar 1 disorder, mixed F3 1.60 [place] [address] [address] October, Bipolar 1 disorder, mixed F3 1.60 [place] [address] [address] October, Bipolar 1 disorder, mixed F3 1.60 [place] [address] [address] October, Bipolar 1 disorder, mixed F3 1.60 [place] [address] [address] October, Cervicalgia M54.2 and Bipola r 1 disorder, mixed F31.60 [place] [address] [id number] [place] [address] October, Hypertension I10 ; Hyperlipi demia, unspecified hyperlipidemia type E78.5 and Family history of thyroid disease Z83.49 [place] [address] [address] October, [place] [address] [address] October, Hypertension I10 ; Hyperlipi demia, unspecified hyperlipidemia type E78.5 and Family history of thyroid problem Z83.49 [place] [address] [place] [address] October, Bipolar 1 disorder, mixed F3 1.60 [place] [address] [address] Sep, Bipolar 1 disorder, mixed F3 1.60 [place] [address] [address] Sep, Bipolar 1 disorder, mixed F3 1.60 [place] [address] [address] Sep, Bipolar 1 disorder, mixed F3 1.60 [place] [address] [address] Sep, History of colon polyps Z86. 010 and Hematochezia K92.1 [place] [address] [address] Sep, Major depressive disorder, r ecurrent episode, moderate F33.1 [place] [address] [address] Sep, Bipolar 1 disorder, mixed F3 1.60 [place] [address] [address] Aug, Hot flashes due to menopause N95.1 [place] [address] [address] Aug, Bipolar 1 disorder, mixed F3 1.60 [place] [address] [place] [id number] Aug, [place] [address] [address] Aug, Bipolar 1 disorder, mixed F3 1.60 [place] [address] [address] Aug, Bipolar 1 disorder, mixed F3 1.60 [place] [address] Aug, Hot flashes due to menopause N95.1 ; Cervicalgia M54.2 and Ataxia R27.0 [place] [address] [place] [address] Jul, Bipolar 1 disorder, mixed F3 1.60 [place] [address] Jul, Bipolar 1 disorder, mixed F3 1.60 [place] [address] Jul, Bipolar 1 disorder, mixed F3 1.60 [place] [address] [place] [address] Jul, Bipolar 1 disorder, mixed F3 1.60 [place] [address] [place] [address] Jul, Bipolar 1 disorder, mixed F3 1.60 [place] [address] [address] Jul, Cervicalgia M54.2 ; Tremor R 25.1 ; Hearing abnormally acute, unspecified laterality H93.239 ; Alopecia L65.9 ; Encounter for immunization Z23 and Family history of thyroid disease Z83.49 [place] [address] [address] Jul, Bipolar 1 disorder, mixed F3 1.60 [place] [address] [place] [address] Jun, [place] [address] [address] Jun, Hearing disorder, unspecifie d laterality H93.299 [facility] [place] [address] [facility] [id number] [address] [place] [address] Jun, Bipolar 1 disorder, mixed F3 1.60 [facility] [place] [address] [facility] [id number] [address] [place] [address] Jun, Bipolar 1 disorder, mixed F3 1.60 [facility] [place] [address] [facility] [id number] [address] [place] [address] Jun, Allergic rhinitis J30.9 [facility] [place] [address] [id number] [address] [place] [address] Jun, Bipolar 1 disorder, mixed F3 1.60 [facility] [place] [address] [facility] [id number] [address] [place] [address] Jun, Bipolar 1 disorder, mixed F3 1.60 [facility] [place] [address] [facility] [id number] [address] [place] [address] Jun, Allergic rhinitis J30.9 [facility] [place] [address] [facility] [id number] [address] [place] [address] Jun, Allergic rhinitis J30.9 [facility] [place] [address] [facility] [id number] [address] [place] [address] Jun, Bipolar 1 disorder, mixed F3 1.60 [facility] [place] [address] [facility] [id number] [address] [place] [address] May, Bipolar 1 disorder, mixed F3 1.60 [facility] [place] [address] [facility] [id number] [address] [place] [address] May, Bipolar 1 disorder, mixed F3 1.60 [facility] [place] [address] [facility] [id number] [address] [place] [address] May, [facility] [place] [address] [facility] [id number] [address] [place] [address] May, Bipolar 1 disorder, mixed F3 1.60 [facility] [place] [address] [facility] [id number] [address] [place] [address] May, Bipolar 1 disorder, mixed F3 1.60 [facility] [place] [address] [facility] [id number] [address] [place] [address] May, [facility] [place] [address] [facility] [id number] [address] [place] [address] May, [facility] [place] [address] [facility] [id number] [address] [place] [address] May, [facility] [place] [address] [facility] [id number] [address] [place] [address] May, Abdominal pain, unspecified location R10.9 [facility] [place] [address] [facility] [id number] [place] [address] May, [facility] [place] [address] [place] [id number] [place] [address] Apr, Hematuria R31.9 ; Ataxia R27 .0 and Hearing loss, unspecified laterality H91.90 [facility] [place] [address] [facility] [id number] [address] [place] [address] Apr, Bipolar 1 disorder, mixed F3 1.60 [facility] [address] [facility] [id number] [address] [place] [address] Apr, Acute effusion of both middl e ears H65.193 [facility] [place] [address] [facility] [id number] [address] [place] [address] Apr, Hematuria R31.9 and Pyelonep hritis N12 [facility] [place] [address] [facility] [id number] [address] [place] [address] Apr, [facility] [place] [address] [facility] [id number] [address] [place] [id number] Mar, Bipolar 1 disorder, mixed F3 1.60 [facility] [place] [address] [facility] [id number] [address] [place] [id number] Mar, [facility] [place] [address] [place] [id number] [address] [place], [place] [id number] Mar, Bipolar 1 disorder, mixed F3 1.60 [place] [address] [place] [id number] [address] [place] [address] Mar, Bipolar 1 disorder, mixed F3 1.60 [place] [address] [address] [place] [id number] [address] [place] [id number] Mar, Encounter for immunization Z 23 and Gastritis without bleeding, unspecified chronicity, unspecified gastritis type K29.70 [place] [address] [address] [place] [id number] [address] [place] [address] Mar, Bipolar 1 disorder, mixed F3 1.60 and Grief F43.20 [place] [address] [address] [place] [id number] [address] [place] [address] Mar, Gastritis without bleeding, unspecified chronicity, unspecified gastritis type K29.70 [place] [address] [address] [place] [id number] [address] [place] [id number] Mar, Bipolar 1 disorder, mixed F3 1.60 [place] [id number] [place] [id number] Mar, Gastritis without bleeding, unspecified chronicity, unspecified gastritis type K29.70 [place] [address] [place] [id number] [address] [place] [id number] Mar, [place] [address] [place] [id number] [address] [place] [address] Feb, Bipolar 1 disorder, mixed F3 1.60 [place] [address] [place] [id number] [address] [place] [id number] Feb, Bipolar 1 disorder, mixed F3 1.60 and Grief F43.20 [place] [address] [address] [place] [id number] [address] [place] [address] Feb, Gastritis without bleeding, unspecified chronicity, unspecified gastritis type K29.70 [place] [address] [address] [place] [id number] [address] [place] [address] Feb, Bipolar 1 disorder, mixed F3 1.[address] [facility] [address] [facility] [id number] [address] [place] [id number] Feb, Gastroesophageal reflux dise ase, esophagitis presence not specified K21.9 [facility] [place] [address] [facility] [id number] [address] [place] [id number] Jan, Bipolar 1 disorder, mixed F3 1.60 [facility] [place] [address] [facility] [id number] [address] [place] [id number] Jan, Bipolar 1 disorder, mixed F3 1.60 and Unsteady gait R26.81 [facility] [place] [address] [facility] [id number] [address] [place] [id number] Jan, Bipolar 1 disorder, mixed F3 1.60 [facility] [place] [facility] [address] [facility] [id number] [address] [place] [phone] Jan, Bipolar 1 disorder, mixed F3 1.60 and Other management associate (current) drug therapy Z79.899 [facility] [place] [address] [facility] [id number] [address] [place] [address] Jan, Bipolar 1 disorder, mixed F3 1.60 [facility] [place] [address] [facility] [id number] [address] [place] [address] Jan, Bipolar 1 disorder, mixed F3 1.60 [facility] [place] [address] [facility] [id number] [address] [place] [address] Jan, Bipolar 1 disorder, mixed F3 1.60 ; Grief F43.20 and Other snf (current) drug therapy Z79.899 [facility] [place] [address] [facility] [id number] [address] [place] [address] Jan, Bipolar 1 disorder, mixed F3 1.60 [facility] [place] [address] [facility] [id number] [address] [place] [address] Dec, [facility] [place] [address] [facility] [id number] [address] [place] [address] Dec, Bipolar 1 disorder, mixed F3 1.60 ; Vitamin D deficiency, unspecified E55.9 ; H/O allergic rhinitis Z87.09 ; Other chronic pain G89.29 and Dorsalgia, unspecified M54.9 [facility] [place] [address] [facility] [id number] [address] [place] [address] Dec, [facility] [place] [address] [facility] [id number] [address] [place] [address] Dec, Bipolar 1 disorder, mixed F3 1.60 [facility] [place] [address] [facility] [id number] [address] [place] [address] Dec, Major depressive disorder, r ecurrent episode, moderate F33.1 [place] [address] [place] [id number] [address] [place] [address] Dec, Major depressive disorder, r ecurrent episode, moderate F33.1 [place] [address] [place] [id number] [address] [place] [address] Nov, [facility] [place] [address] [facility] [id number] [address] [place] [address] Nov, Bipolar 1 disorder, mixed F3 1.60 [place] [address] [place] [id number] [address] [place] [address] Nov, Major depressive disorder, r ecurrent episode, moderate F33.1 [place] [address] [facility] [id number] [address] [place] [address] Nov, Cervicalgia M54.2 ; Arthralg ia of hip, unspecified laterality M25.559 ; Allergic rhinitis J30.9 and Hormone replacement therapy Z79.[address] [facility] [address] [facility] [id number] [address] [place] [address] Nov, Other seasonal allergic rhin itis J30.2 [facility] [place] [address] [facility] [id number] [address] [place] [address] October, Major depressive disorder, r ecurrent episode, moderate F33.1 [facility] [place] [id number] [place] [address] October, Major depressive disorder, r ecurrent episode, moderate F33.1 and Arthralgia of hip, unspecified laterality M25.559 [place] [address] [address] October, Grief F43.20 ; Hypertension I10 ; Hyperlipidemia, unspecified hyperlipidemia type E78.5 ; Other chronic pain G89.29 and Allergic rhinitis, unspecified allergic rhinitis type J30.9 [place] [id number] [place] [address] October, Major depressive disorder, r ecurrent episode, moderate F33.1 [place] [address] [address] Sep, Major depressive disorder, r ecurrent episode, moderate F33.1 [place] [address] [address] Sep, [place] [address] [address] Sep, Major depressive disorder, r ecurrent episode, moderate F33.1 [place] [address] [place] [id number] [address] [place] [address] Sep, Grief F43.20 [place] [address] [address] Aug, Major depressive disorder, r ecurrent episode, moderate F33.1 [place] [address] [place] [id number] [address] [place] [address] Aug, Bipolar 1 disorder, mixed F3 1.60 [place] [address] [place] [address] Aug, Allergic rhinitis J30.9 ; Ce rvicalgia M54.2 and Low back pain M54.5 [place] [address] [place] [id number] [address] [place] [address] Aug, Major depressive disorder, r ecurrent episode, moderate F33.[address] [facility] [address] [facility] [id number] [address] [place] [address] Aug, Sinusitis J32.9 and Tobacco 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 [facility] [place] [address] [facility] [id number] [address] [place] [address] Aug, [facility] [place] [address] [facility] [id number] [address] [place] [address] Aug, Depressive disorder, not els ewhere classified F32.9 ; Hormone replacement therapy Z79.[address] scan, head R93.0 [facility] [place] [address] [facility] [id number] [address] [place] [address] Aug, Major depressive disorder, r ecurrent episode, moderate F33.1 [facility] [place] [address] [place] [id number] [address] [place] [address] Jul, Major depressive disorder, r ecurrent episode, moderate F33.1 [facility] [place] [address] [facility] [id number] [address] [place] [address] Jul, Abdominal pain R10.9 and Hyp ertension I10 [facility] [place] [address] [facility] [id number] [address] [place] [address] Jul, [facility] [place] [address] [facility] [id number] [address] [place] [address] Jul, Major depressive disorder, r ecurrent episode, moderate F33.1 [facility] [place] [address] [facility] [id number] [address] [place] [address] Jul, [facility] [place] [address] [facility] [id number] [address] [place] [address] Jul, [facility] [place] [address] [facility] [id number] [address] [place] [address] Jun, [facility] [place] [address] [place] [id number] [address] [place] [address] Jun, Depressive disorder, not els ewhere classified F32.9 [facility] [place] [address] [id number] [address] [place] [address] Jun, [facility] [place] [address] [id number] [address] [place] [address] Jun, [facility] [place] [address] [id number] [address] [place] [address] Jun, Arthralgia of hip, unspecifi ed laterality M25.559 ; Bruising, spontaneous R23.3 and Night sweats R61 [facility] [place] [address] [id number] [address] [place] [address] Jun, [facility] [place] [address] [facility] [id number] [address] [place] [address] Jun, [facility] [place] [address] [place] [id number] [address] [place] [address] May, [facility] [place] [address] [facility] [id number] [address] [place] [address] May, Myalgia M79.1 and Screening, lipid Z13.220 [facility] [place] [address] [facility] [id number] [address] [place] [address] Apr, Status post cervical spinal fusion Z98.1 ; Fibromyalgia M79.7 and Unsteady gait R26.81 [facility] [place] [address] [id number] [address] [place] [address] Nov, [facility] [place] [address] [id number] [address] [place] [address] Nov, [facility] [place] [address] [facility] [id number] [address] [place] [id number] October, [facility] [place] [address] [facility] [id number] [address] [place] [phone] October, [facility] [place] [address] [facility] [id number] [address] [place] [address] October, [facility] [address] [id number] [address] [place] [address], [place] [address] October, [facility] [address] [id number] [address] [place] [address] October, [facility] [address] [id number] [address] [place] [address], [place] [address] October, Dysuria 788.1 ; Nausea 787.0 2 and Urinary tract infection 599.0 [facility] [address] [id number] [address] [place] [address], [place] [address] Sep, [facility] [address] [id number] [address] [place] [address], [place] [address] Sep, [facility] [address] [id number] [address] [place] [address] Aug, [facility] [address] [id number] [address] [place] [address], [place] [address] Aug, [facility] [address] [id number] [address] [place] [address] Aug, [facility] [address] [id number] [address] [place] [address], [place] [address] Aug, [facility] [address] [id number] [address] [place] [address] Aug, [facility] [address] [id number] [address] [place] [address] Aug, [facility] [address] [id number] [address] [place] [address] Aug, [facility] [address] [id number] [address] [place] [address] Aug, [facility] [address] [id number] [address] [place] [address] Aug, [facility] [address] [id number] [address] [place] [address] 18 Aug, 2014 [facility] [address] [id number] [address] [place] [address], [place] [address] 18 Aug, 2014 [facility] [address] [id number] [address] [place] [address], [place] [address] Aug, [facility] [address] [id number] [address] [place] [address], [place] [address] Aug, [facility] [address] [id number] [address] [place] [address], [place] [address] Aug, [facility] [address] [id number] [address] [place] [address], [place] [address] Aug, [facility] [address] [id number] [address] [place] [address], [place] [address] Aug, [facility] [address] [id number] [address] [place] [address], [place] [address] Aug, [facility] [address] [id number] [address] [place] [address], [place] [address] 05 Aug, 2014 [facility] [address] [id number] [address] [place] [address], [place] [address] Aug, [facility] [address] [id number] [address] [place] [address], [place] [address] Aug, [facility] [address] [id number] [address] [place] [address], [place] [address] Aug, [facility] [address] [id number] [address] [place] [address], [place] [address] Aug, [facility] [address] [id number] [address] [place] [address], [place] [address] Jul, [facility] [address] [id number] [address] [place] [address], [place] [address] Jul, [facility] [address] [id number] [address] [place] [address], [place] [address] Jul, [facility] [address] [id number] [address] [place] [address], [place] [address] Jul, 2014 [facility] [address] [id number] [address] [place] [address], [place] [address] Jul, 2014 [facility] [address] [id number] [address] [place] [address], [place] [address] Jul, 2014 [facility] [address] [id number] [address] [place] [address], [place] [address] Jul, 2014 [facility] [address] [id number] [address] [place] [address], [place] [address] Jul, 2014 [facility] [address] [id number] [address] [place] [address], [place] [address] Jul, 2014 [facility] [address] [id number] [address] [place] [address], [place] [address] Jul, 2014 [facility] [address] [id number] [address] [place] [address], [place] [address] Jul, 2014 [facility] [address] [id number] [address] [place] [address], [place] [address] Jul, [facility] [address] [id number] [address] [place] [address] Jul, [facility] [address] [id number] [address] [place] [address] Jul, [facility] [address] [id number] [address] [place] [address] Jun, [facility] [address] [id number] [address] [place] [address] Jun, [facility] [address] [id number] [address] [place] [address] Jun, [facility] [address] [id number] [address] [place] [address] Jun, [facility] [address] [id number] [address] [place] [address] Jun, [facility] [address] [id number] [address] [place] [address], [place] [address] Jun, [facility] [address] [id number] [address] [place] [address], [place] [address] May, [facility] [address] [id number] [address] [place] [address], [place] [address] May, [facility] [address] [id number] [address] [place] [address], [place] [address] May, [facility] [address] [id number] [address] [place] [address], [place] [address] May, [facility] [address] [id number] [address] [place] [address], [place] [address] May, [facility] [address] [id number] [address] [place] [address], [place] [address] May, [facility] [address] [id number] [address] [place] [address], [place] [address] Apr, [facility] [address] [id number] [address] [place] [address], [place] [address] Apr, [facility] [address] [id number] [address] [place] [address], [place] [address] Apr, [facility] [address] [id number] [address] [place] [address], [place] [address] Apr, [facility] [address] [id number] [address] [place] [address], [place] [address] Apr, [facility] [address] [id number] [address] [place] [address], [place] [address] Apr, [facility] [address] [id number] [address] [place] [address], [place] [address] Mar, [facility] [address] [id number] [address] [place] [address], [place] [address] Mar, [facility] [address] [id number] [address] [place] [address], [place] [address] 09 Mar, 2013 [facility] [address] [id number] [address] [place] [address], [place] [address] Mar, 2013 [facility] [address] [id number] [address] [place] [address], [place] [address] Mar, 2013 [facility] [address] [id number] [address] [place] [address], [place] [address] Mar, 2013 [facility] [address] [id number] [address] [place] [address], [place] [address] Mar, 2013 [facility] [address] [id number] [address] [place] [address], [place] [address] Mar, 2013 [facility] [address] [id number] [address] [place] [address], [place] [address] Mar, 2013 [facility] [address] [id number] [address] [place] [address], [place] [address] Mar, 2013 [facility] [address] [id number] [address] [place] [address], [place] [address] Mar, [facility] [address] [id number] [address] [place] [address], [place] [address] Mar, 2013 [facility] [address] [id number] [address] [place] [address], [place] [address] 30 Feb, 2013 [facility] [address] [id number] [address] [place] [address], [place] [address] 29 Sep, 2013 [facility] [address] [id number] [address] [place] [address], [place] [address] 29 Sep, 2013 [facility] [address] [id number] [address] [place] [address], [place] [address] 23 Sep, 2013 [facility] [address] [id number] [address] [place] [address], [place] [address] 23 Sep, 2013 [facility] [address] [id number] [address] [place] [address], [place] [address] Feb, [facility] [address] [id number] [facility] [place] [address] Feb, [facility] [address] [id number] [facility] [place] [address] Jan, [facility] [address] [id number] [facility] [place] [address] Jan, [facility] [address] [id number] [address] [place] [address], [place] [address] Jan, [facility] [address] [id number] [address] [place] [address], [place] [address] Dec, [facility] [address] [id number] [address] [place] [address], [place] [address] Dec, [facility] [address] [id number] [address] [place] [address], [place] [address] Dec, [facility] [address] [id number] [address] [place] [address], [place] [address] Dec, [facility] [address] [id number] [address] [place] [address], [place] [address] Sep, [facility] [address] [id number] [address] [place] [address], [place] [address] Sep, [facility] [address] [id number] [address] [place] [address], [place] [address] Sep, [facility] [address] [id number] [address] [place] [address], [place] [address] Sep, [facility] [address] [id number] [address] [place] [address], [place] [address] Sep, [facility] [address] [id number] [address] [place] [address], [place] [address] Sep, [facility] [address] [id number] [address] [place] [address], [place] [address] Sep, [facility] [address] [id number] [address] [place] [address], [place] [address] Sep, [facility] [address] [id number] [address] [place] [address], [place] [address] Aug, [facility] [address] [id number] [address] [place] [address], [place] [address] Aug, [facility] [address] [id number] [address] [place] [address], [place] [address] May, [facility] [address] [id number] [address] [place] [address], [place] [address] May, [facility] [address] [id number] [address] [place] [address], [place] [address] Apr, [facility] [address] [id number] [address] [place] [address], [place] [address] Apr, [facility] [address] [id number] [address] [place] [address], [place] [address] Apr, [facility] [address] [id number] [address] [place] [address], [place] [address] Apr, [facility] [address] [id number] [address] [place] [address], [place] [address] Apr, [facility] [address] [id number] [address] [place] [address], [place] [address] Apr, [facility] [address] [id number] [address] [place] [address], [place] [address] May, [facility] [address] [id number] [address] [place] [address], [place] [address] 18 May, 2012 [facility] [address] [id number] [address] [place] [address], [place] [address] 15 May, 2012 [facility] [address] [id number] [address] [place] [address], [place] [address] 15 May, 2012 [facility] [address] [id number] [address] [place] [address], [place] [address] 13 May, 2012 [facility] [address] [id number] [address] [place] [address], [place] [address] 13 May, 2012 [facility] [address] [id number] [address] [place] [address], [place] [address] Apr, [facility] [address] [id number] [address] [place] [address], [place] [address] Apr, [facility] [address] [id number] [address] [place] [address], [place] [address] Apr, [facility] [address] [id number] [address] [place] [address], [place] [address] 08 Apr, 2012 [facility] [address] [id number] [address] [place] [address], [place] [address] Apr, [facility] [address] [id number] [address] [place] [address], [place] [address] Apr, [facility] [address] [id number] [address] [place] [address], [place] [address] Apr, [facility] [address] [id number] [address] [place] [address], [place] [address] Apr, [facility] [address] [id number] [address] [place] [address], [place] [address] Apr, [facility] [address] [id number] [address] [place] [address], [place] [address] Apr, [facility] [address] [id number] [address] [place] [address], [place] [address] Mar, [facility] [address] [id number] [address] [place] [address], [place] [address] Mar, [facility] [address] [id number] [address] [place] [address], [place] [address] Mar, [facility] [address] [id number] [address] [place] [address], [place] [address] Mar, [facility] [address] [id number] [address] [place] [address], [place] [address] Mar, [facility] [address] [id number] [address] [place] [address], [place] [address] Mar, [facility] [address] [id number] [address] [place] [address], [place] [address] Mar, [facility] [address] [id number] [address] [place] [address], [place] [address] Mar, [facility] [address] [id number] [address] [place] [address], [place] [address] Mar, [facility] [address] [id number] [address] [place] [address], [place] [address] Feb, [facility] [address] [id number] [address] [place] [address], [place] [address] 16 Feb, 2012 [facility] [facility] [address] [id number] [address] [place] [address], [place] [address] Feb, [facility] [address] [id number] [address] [place] [address], [place] [address] Jan, [facility] [address] [id number] [address] [place] [address], [place] [address] Jan, [facility] [address] [id number] [address] [place] [address], [place] [address] Jan, [facility] [address] [id number] [address] [place] [address], [place] [address] Jan, [facility] [address] [id number] [address] [place] [address], [place] [address] Jan, [facility] [address] [id number] [address] [place] [address], [place] [address] Jan, [facility] [address] [id number] [address] [place] [address], [place] [id number] 16 Jan, 2012 [facility] [address] [id number] [address] [place] [address], [place] [address] 15 Jan, 2012 [facility] [address] [id number] [address] [place] [address], [place] [address] Jan, [facility] [address] [id number] [address] [place] [address], [place] [address] Jan, [facility] [address] [id number] [address] [place] [address], [place] [address] Dec, [facility] [address] [id number] [address] [place] [address], [place] [address] Dec, [facility] [address] [id number] [address] [place] [address], [place] [address] Dec, [facility] [address] [id number] [address] [place] [address], [place] [address] Dec, [facility] [address] [id number] [address] [place] [address], [place] [address] Nov, [facility] [address] [id number] [address] [place] [address], [place] [address] Nov, [facility] [address] [id number] [address] [place] [address], [place] [address] Nov, [facility] [address] [id number] [address] [place] [address], [place] [address] October, [facility] [address] [id number] [address] [place] [address], [place] [address] October, [facility] [address] [id number] [address] [place] [address], [place] [address] October, [facility] [address] [id number] [address] [place] [address], [place] [address] October, [facility] [address] [id number] [address] [place] [address], [place] [address] October, [facility] [address] [id number] [address] [place] [address], [place] [address] October, [facility] [address] [id number] [address] [place] [address], [place] [address] Aug, [facility] [place] [address] [id number] [address] [place] [id number] 10 Mar, 2011 [facility] [place] [address] [id number] [address] [place] [id number] 16 Nov, 2010 [facility] [place] [address] [id number] [address] [place] [id number] May, [facility] [place] [address] [facility] [id number] [address] [place] [id number] May, [facility] [place] [address] [id number] [address] [place] [id number] Apr, [facility] [place] [address] [facility] [id number] [address] [place] [id number] Mar, [facility] [place] [address] [facility] [id number] [address] [place] [id number] Mar, IMMUNIZATIONS No Known Immunizations SOCIAL HISTORY [...]
--- OUTSIDE RECORDS SUMMARY | 2019-06-19 05:59 | XMS REPORT ---
Author Author Sydnie MORTON Organization [facility] Address [address] [place] [address] Care Team Providers Care Pharmacy Care Coordinator Name Role Phone JOHN MORTON Unavailable PROBLEMS Type Condition ICD9-CM Code [id number] Code Onset Dates Condition S tatus SNOMED Code Problem Hormone replacement therapy Z79.890 Ac tive 670012302 Problem Abnormal CT scan, head R93.0 Active 748312474 Problem Sensorineural hearing loss (SNHL) of both ears H90 .3 Active 346781141 Problem History of colon polyps Z86.010 Active 218058239 Problem Bruising, spontaneous R23.3 Active 646324652 Problem Generalized anxiety disorder F41.1 A ctive 29793690 Problem Arthralgia of hip, unspecified laterality M25.559 Active 89424972 Problem Hematuria, unspecified type R31.9 Ac tive 85415206 Problem Imbalance R26.89 Active 048191693 Problem Hammer toe of right foot M20.41 Activ e 986696571 Problem Plantar wart of right foot B07.0 Act mitchell [id number] Problem Sciatica of left side M54.32 Active 65184426 Problem Hyperlipidemia, unspecified hyperlipidemia type E7 8.5 Active 20414683 Problem Hypertension I10 Active 8443586 3 Problem Night sweats R61 Active 5415385 0 Problem Fibromyalgia M79.7 Active 5337700 7 Problem Major depressive disorder, recurrent episode, moderate F33.1 Active 112868503 Problem Acute left-sided low back pain with left-sided sciatica M54.42 Active 840456414 Problem Bladder spasm N32.89 Active 329678 006 Problem Gastritis without bleeding, unspecified chronicity, unspecified gastritis type K29.70 Active 258652219 Problem Bipolar 1 disorder, mixed F31.60 Acti ve 31676400 Problem Grief F43.20 Active 24966275 Problem Other chronic pain G89.29 Active 8 0648421 Problem Allergic rhinitis J30.9 Active 61 577024 Problem Hot flashes due to menopause N95.1 A ctive 566756616 Problem Ataxia R27.0 Active 19248522 Problem Hearing loss, unspecified laterality H91.90 Active 79371665 ALLERGIES No Information ENCOUNTERS Encounter Location Date Diagnosis [facility] [address] [facility] [id number] [address] [place] [phone] Dec, [facility] [address] [facility] [id number] [address] [place] [id number] Dec, [facility] [address] [facility] [id number] [address] [place] [id number] Dec, [facility] [address] [facility] [id number] [address] [place] [id number] Dec, [facility] [address] [place] [id number] [address] [place] [phone] Nov, [facility] [address] [facility] [id number] [address] [place] [phone] Nov, [facility] [address] [facility] [id number] [address] [place] [phone] Nov, Allergic rhinitis J30.9 [facility] [address] [facility] [id number] [address] [place] [phone] Nov, Allergic rhinitis J30.9 [facility] [address] [facility] [id number] [address] [place] [id number] Nov, [facility] [address] [facility] [id number] [address] [place] [id number] Nov, Bipolar 1 disorder, mixed F3 1.60 [facility] [address] [facility] [id number] [address] [place] [id number] Nov, Fibromyalgia M79.7 and Aller gic rhinitis J30.9 [facility] [address] [facility] [id number] [address] [place] [id number] October, Bipolar 1 disorder, mixed F3 1.60 [facility] [address] [facility] [id number] [address] [place] [id number] October, [facility]00 [facility] [address] [facility] [id number] [address] [place] [id number] October, Bitten or stung by nonvenomo us insect and other nonvenomous arthropods, initial encounter W57.XXXA and Insect bite (nonvenomous) of abdominal wall, initial encounter S30.861A [facility] [address] [facility] [id number] [address] [place] [id number] October, Insect bite (nonvenomous) of abdominal wall, initial encounter S30.861A ; Bitten or stung by nonvenomous insect and other nonvenomous arthropods, initial encounter W57.XXXA ; Allergic rhinitis J30.9 and Low back pain M54.5 [facility] [address] [place] [id number] [address] [place] [id number] October, Bipolar 1 disorder, mixed F3 1.60 [facility] [address] [place] [id number] [address] [place] [id number] October, [facility] [address] [place] [id number] [place] [phone] October, [facility] [address] [place] [id number] [address] [place] [id number] October, Bipolar 1 disorder, mixed F3 1.60 [facility] [address] [place] [id number] [address] [place] [id number] Sep, Bipolar 1 disorder, mixed F3 1.60 [facility] [address] [facility] [id number] [address] [place] [id number] Sep, Other chronic pain G89.29 [facility] [address] [facility] [id number] [address] [place] [phone] Sep, [facility] [address] [place] [id number] [address] [place] [id number] Sep, Bipolar 1 disorder, mixed F3 1.60 [facility] [address] [id number] [address] [place] [id number] Sep, Allergic rhinitis J30.9 and Sciatica of left side M54.32 [facility] [address] [id number] [address] [place] [id number] Sep, Bipolar 1 disorder, mixed F3 1.60 [facility] [address] [facility] [id number] [address] [place] [address] Sep, Bipolar 1 disorder, mixed F3 1.60 and Generalized anxiety disorder F41.1 [facility] [address] [id number] [address] [place] [phone] Aug, [facility] [address] [facility] [id number] [address] [place] [address] Aug, Bipolar 1 disorder, mixed F3 1.60 [facility] [address] [facility] [id number] [address] [place] [id number] Aug, Bipolar 1 disorder, mixed F3 1.60 [facility] [address] [facility] [id number] [address] [place] [phone] Aug, [facility] [address] [facility] [id number] [address] [place] [id number] Aug, Generalized anxiety disorder F41.1 [facility] [address] [facility] [id number] [address] [place] [id number] Aug, Bipolar 1 disorder, mixed F3 1.60 [facility] [address] [facility] [id number] [address] [place] [phone] Aug, Plantar wart of right foot B 07.0 [facility] [address] [facility] [id number] [address] [place] [id number] Aug, Bipolar 1 disorder, mixed F3 1.60 [facility] [address] [facility] [id number] [address] [place] [id number] Jul, Bipolar 1 disorder, mixed F3 1.60 [facility] [address] [facility] [id number] [address] [place] [id number] Jul, [facility] [address] [facility] [id number] [address] [place] [id number] 14 Jul, 2017 Bipolar 1 disorder, mixed F3 1.60 [facility] [address] [place] [id number] [address] [place] [id number] 09 Jul, 2017 Generalized anxiety disorder F41.1 [facility] [address] [place] [id number] [address] [place] [id number] 07 Jul, 2017 Bipolar 1 disorder, mixed F3 1.60 [place] [address] [place] [id number] [place] [phone] 07 Jul, 2017 Acute left-sided low back pa in with left-sided sciatica M54.42 [facility] [address] [place] [id number] [address] [place] [id number] 05 Jul, 2017 Coccydynia M53.3 [facility] [address] [facility] [id number] [address] [place] [id number] Jun, Bipolar 1 disorder, mixed F3 1.60 [facility] [address] [facility] [id number] [address] [place] [phone] Jun, Acute nasopharyngitis J00 [facility] [address] [place] [id number] [address] [place] [id number] Jun, Bipolar 1 disorder, mixed F3 1.60 [facility] [address] [facility] [id number] [address] [place] [phone] Jun, Fibromyalgia M79.7 [facility] [address] [facility] [id number] [address] [place] [address] Jun, Bipolar 1 disorder, mixed F3 1.60 [facility] [address] [facility] [id number] [address] [place] [id number] Jun, Fibromyalgia M79.7 and Bipol ar 1 disorder, mixed F31.60 [facility] [address] [id number] May, Bipolar 1 disorder, mixed F3 1.60 ; Generalized anxiety disorder F41.1 and 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 [place] [address] [address] May, Bipolar 1 disorder, mixed F3 1.60 [facility] [address] [address] 14 May, 2017 Cough R05 and Body aches R52 [facility] [address] [address] 10 May, 2017 Bladder spasm N32.89 and Acu te cystitis without hematuria N30.00 [place] [address] [address] 07 May, 2017 Bipolar 1 disorder, mixed F3 1.60 [place] [address] [address] 30 Apr, 2017 [place] [address] [address] Apr, Major depressive disorder, r ecurrent episode, moderate F33.1 and Encounter for immunization Z23 [place] [address] [address] Apr, Bipolar 1 disorder, mixed F3 1.60 [place] [address] [address] Apr, Bipolar 1 disorder, mixed F3 1.60 [place] [address] [address] 16 Apr, 2017 Bipolar 1 disorder, mixed F3 1.60 [place] [address] [address] 13 Apr, 2017 Yeast vaginitis B37.3 [place] [address] [address] Apr, Bipolar 1 disorder, mixed F3 1.60 [facility] [id number] [place] [address] Apr, Cellulitis L03.[address] for immunization Z23 [facility] [address] [place] [id number] [place] [address] Apr, Bipolar 1 disorder, mixed F3 1.60 [facility] [address] [place] [address] Mar, Bipolar 1 disorder, mixed F3 1.60 [place] [address] Mar, Bipolar 1 disorder, mixed F3 1.60 [facility] [address] [address] Mar, Imbalance R26.89 and Encount er for immunization Z23 [facility] [address] [address] Mar, Generalized anxiety disorder F41.1 [facility] [address] [place] [address] Mar, Bipolar 1 disorder, mixed F3 1.60 [facility] [address] [address] Mar, Generalized anxiety disorder F41.1 [facility] [address] [place] [id number] [address] [place] [address] Mar, Bipolar 1 disorder, mixed F3 1.60 [facility] [address] [place] [id number] [address] [place] [id number] Mar, Bipolar 1 disorder, mixed F3 1.60 [facility] [address] [place] [id number] [address] [place] [id number] Feb, Bipolar 1 disorder, mixed F3 1.60 [facility] [address] [place] [id number] [address] [place], [place] [address] Feb, Bipolar 1 disorder, mixed F3 1.60 and Generalized anxiety disorder F41.1 [place] [address] [address] Feb, Gastritis without bleeding, unspecified chronicity, unspecified gastritis type K29.70 ; Hammer toe of right foot M20.41 and Other viral warts B07.8 [place] [address] [address] Feb, Bipolar 1 disorder, mixed F3 1.60 [place] [address] [address] Feb, Bipolar 1 disorder, mixed F3 1.60 [place] [address] [address] Feb, Bipolar 1 disorder, mixed F3 1.60 [place] [address] [address] Jan, Encounter for screening mamm ogram for breast cancer Z12.31 ; Other viral warts B07.8 and Allergic rhinitis J30.9 [place] [address] [address] Jan, Bipolar 1 disorder, mixed F3 1.60 [place] [address] [place] [id number] [address] [place] [id number] Jan, Bipolar 1 disorder, mixed F3 1.60 [place] [address] [place] [id number] [address] [place] [address] Jan, [place] [address] [place] [id number] [address] [place] [address] Jan, Bipolar 1 disorder, mixed F3 1.60 [place] [address] [place] [id number] [address] [place] [id number] Jan, Bipolar 1 disorder, mixed F3 1.60 [place] [address] [place] [id number] [address] [place] [address] Jan, Allergic rhinitis J30.9 ; He maturia R31.9 and Colon cancer screening Z12.11 [facility] [address] [place] [id number] [address] [place] [id number] Dec, Bipolar 1 disorder, mixed F3 1.60 [facility] [address] [place] [id number] [address] [place] [id number] Dec, Bipolar 1 disorder, mixed F3 1.60 ; Generalized anxiety disorder F41.1 and Other residential (current) drug therapy Z79.899 [facility] [address] [place] [id number] [address] [place] [address] Dec, Bipolar 1 disorder, mixed F3 1.60 [place] [address] [place] [id number] [address] [place] [address] Dec, Bipolar 1 disorder, mixed F3 1.60 [place] [address] [place] [id number] [address] [place] [address] Dec, Bipolar 1 disorder, mixed F3 1.60 [place] [address] [place] [id number] [address] [place] [address] Dec, Low back pain M54.5 and Recu rrent urinary tract infection N39.0 [facility] [address] [place] [id number] [address] [place] [address] Nov, Bipolar 1 disorder, mixed F3 1.60 [place] [id number] [place] [id number] [address] [place] [address] Nov, Bipolar 1 disorder, mixed F3 1.60 [place] [address] [place] [id number] [address] [place] [address] Nov, Bipolar 1 disorder, mixed F3 1.60 [place] [address] [place] [id number] [address] [place] [address] Nov, Bipolar 1 disorder, mixed F3 1.60 [place] [address] [place] [id number] [address] [place] [address] Nov, [place] [id number] [address] Nov, Anesthesia of skin R20.0 ; F requent UTI N39.0 ; Tobacco abuse Z72.0 and Colon cancer screening Z12.11 [place] [address] [address] Nov, Bipolar 1 disorder, mixed F3 1.60 [place] [address] [address] October, Bipolar 1 disorder, mixed F3 1.60 [place] [address] October, Bipolar 1 disorder, mixed F3 1.60 [place] [address] [address] October, Bipolar 1 disorder, mixed F3 1.60 [place] [address] [address] October, Bipolar 1 disorder, mixed F3 1.60 [place] [address] [address] October, Bipolar 1 disorder, mixed F3 1.60 [place] [address] [address] October, Cervicalgia M54.2 and Bipola r 1 disorder, mixed F31.60 [place] [address] [address] October, Hypertension I10 ; Hyperlipi demia, unspecified hyperlipidemia type E78.5 and Family history of thyroid disease Z83.49 [place] [address] [address] October, [place] [address] [address] October, Hypertension I10 ; Hyperlipi demia, unspecified hyperlipidemia type E78.5 and Family history of thyroid problem Z83.49 [facility] [address] [address] October, Bipolar 1 disorder, mixed F3 1.60 [facility] [address] [place] [id number] [address] [place], [place] [address] Sep, Bipolar 1 disorder, mixed F3 1.60 [place] [address] [address] Sep, Bipolar 1 disorder, mixed F3 1.60 [place] [address] [address] Sep, Bipolar 1 disorder, mixed F3 1.60 [place] [address] [address] Sep, History of colon polyps Z86. 010 and Hematochezia K92.1 [place] [address] [address] Sep, Major depressive disorder, r ecurrent episode, moderate F33.1 [place] [address] [address] Sep, Bipolar 1 disorder, mixed F3 1.60 [place] [address] [address] Aug, Hot flashes due to menopause N95.1 [place] [address] [place] [id number] [address] [place] [address] Aug, Bipolar 1 disorder, mixed F3 1.60 [place] [address] [place] [id number] [address] [place] [address] Aug, [place] [address] [address] Aug, Bipolar 1 disorder, mixed F3 1.60 [place] [address] [address] Aug, Bipolar 1 disorder, mixed F3 1.60 [place] [address] [address] Aug, Hot flashes due to menopause N95.1 ; Cervicalgia M54.2 and Ataxia R27.0 [place] [address] [address] Jul, Bipolar 1 disorder, mixed F3 1.60 [place] [address] Jul, Bipolar 1 disorder, mixed F3 1.60 [place] [address] Jul, Bipolar 1 disorder, mixed F3 1.60 [place] [address] [address] Jul, Bipolar 1 disorder, mixed F3 1.60 [place] [address] [address] Jul, Bipolar 1 disorder, mixed F3 1.60 [place] [address] [address] Jul, Cervicalgia M54.2 ; Tremor R 25.1 ; Hearing abnormally acute, unspecified laterality H93.239 ; Alopecia L65.9 ; Encounter for immunization Z23 and Family history of thyroid disease Z83.49 [place] [address] [address] Jul, Bipolar 1 disorder, mixed F3 1.60 [place] [address] [address] Jun, [place] [address] [place] [id number] Jun, Hearing disorder, unspecifie d laterality H93.299 [place] [address] [address] Jun, Bipolar 1 disorder, mixed F3 1.60 [facility] [address] [id number] [address] [place] [address] Jun, Bipolar 1 disorder, mixed F3 1.60 [facility] [address] [id number] [address] [place] [address] Jun, Allergic rhinitis J30.9 [facility] [address] [id number] [address] [place] [address] Jun, Bipolar 1 disorder, mixed F3 1.60 [facility] [address] [id number] [address] [place] [address] Jun, Bipolar 1 disorder, mixed F3 1.60 [facility] [address] [facility] [id number] [address] [place] [address] Jun, Allergic rhinitis J30.9 [facility] [address] [facility] [id number] [address] [place] [address] Jun, Allergic rhinitis J30.9 [facility] [address] [id number] [address] [place] [address] Jun, Bipolar 1 disorder, mixed F3 1.60 [facility] [address] [facility] [id number] [address] [place] [address] May, Bipolar 1 disorder, mixed F3 1.60 [facility] [address] [id number] [address] [place] [address] May, Bipolar 1 disorder, mixed F3 1.60 [facility] [address] [id number] [address] [place] [address] May, [facility] [address] [facility] [id number] [address] [place] [address] May, Bipolar 1 disorder, mixed F3 1.60 [facility] [address] [facility] [id number] [address] [place] [address] May, Bipolar 1 disorder, mixed F3 1.60 [facility] [address] [facility] [id number] [address] [place] [address] May, [facility] [address] [facility] [id number] [address] [place] [id number] May, [facility] [address] [facility] [id number] [address] [place] [phone] May, [facility] [address] [facility] [id number] [address] [place] [address] May, Abdominal pain, unspecified location R10.9 [facility] [address] [facility] [id number] [address] [place] [phone] May, [facility] [address] [place] [id number] [place] [id number] Apr, Hematuria R31.9 ; Ataxia R27 .0 and Hearing loss, unspecified laterality H91.90 [facility] [address] [place] [id number] [address] [place] [id number] Apr, Bipolar 1 disorder, mixed F3 1.60 [facility] [address] [facility] [id number] [address] [place] [id number] Apr, Acute effusion of both middl e ears H65.193 [facility] [address] [facility] [id number] [address] [place] [id number] Apr, Hematuria R31.9 and Pyelonep hritis N12 [facility] [address] [facility] [id number] [address] [place] [id number] Apr, [facility] [address] [facility] [id number] [address] [place] [id number] Mar, Bipolar 1 disorder, mixed F3 1.60 [facility] [address] [place] [id number] [address] [place] [id number] Mar, [facility] [address] [place] [id number] [address] [place] [id number] Mar, Bipolar 1 disorder, mixed F3 1.60 [facility] [address] [id number] [place] [address] Mar, Bipolar 1 disorder, mixed F3 1.60 [facility] [id number] Mar, Encounter for immunization Z 23 and Gastritis without bleeding, unspecified chronicity, unspecified gastritis type K29.70 [facility] [address] [place] [id number] [address] [place] [id number] Mar, Bipolar 1 disorder, mixed F3 1.60 and Grief F43.20 [place] [address] [place] [id number] [address] [place] [id number] Mar, Gastritis without bleeding, unspecified chronicity, unspecified gastritis type K29.70 [place] [address] [place] [id number] [address] [place] [id number] Mar, Bipolar 1 disorder, mixed F3 1.60 [place] [id number] [place] [id number] Mar, Gastritis without bleeding, unspecified chronicity, unspecified gastritis type K29.70 [place] [id number] [place] [address] Mar, [facility] [address] [place] [id number] [address] [place] [address] 27 Feb, 2016 Bipolar 1 disorder, mixed F3 1.60 [place] [address] [place] [id number] [address] [place] [id number] Feb, Bipolar 1 disorder, mixed F3 1.60 and Grief F43.20 [facility] [address] [facility] [id number] [address] [place] [id number] Feb, Gastritis without bleeding, unspecified chronicity, unspecified gastritis type K29.70 [facility] [address] [place] [id number] [address] [place] [id number] 14 Feb, 2016 Bipolar 1 disorder, mixed F3 1.60 [facility] [address] [facility] [id number] [address] [place], [place] [id number] Feb, Gastroesophageal reflux dise ase, esophagitis presence not specified K21.9 [place] [address] Jan, Bipolar 1 disorder, mixed F3 1.60 [place] [address] [place] [address] Jan, Bipolar 1 disorder, mixed F3 1.60 and Unsteady gait R26.81 [place] [address] [address] Jan, Bipolar 1 disorder, mixed F3 1.60 [place] [address] [place] [address] Jan, Bipolar 1 disorder, mixed F3 1.60 and Other residential (current) drug therapy Z79.899 [place] [address] [address] Jan, Bipolar 1 disorder, mixed F3 1.60 [place] [address] [address] Jan, Bipolar 1 disorder, mixed F3 1.60 [place] [address] [place] [id number] Jan, Bipolar 1 disorder, mixed F3 1.60 ; Grief F43.20 and 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 [place] [address] [place] [id number] Jan, Bipolar 1 disorder, mixed F3 1.60 [place] [address] [place] [id number] Dec, [place] [address] [place] [id number] Dec, Bipolar 1 disorder, mixed F3 1.60 ; Vitamin D deficiency, unspecified E55.9 ; H/O allergic rhinitis Z87.09 ; Other chronic pain G89.29 and Dorsalgia, unspecified M54.9 [facility] [address] [id number] [address] [place] [id number] Dec, [facility] [address] [id number] [address] [place] [id number] Dec, Bipolar 1 disorder, mixed F3 1.60 [facility] [address] [facility] [id number] [address] [place] [id number] Dec, Major depressive disorder, r ecurrent episode, moderate F33.1 [place] [address] [id number] [address] [place] [id number] Dec, Major depressive disorder, r ecurrent episode, moderate F33.1 [place] [address] [facility] [id number] [address] [place] [id number] Nov, [place] [address] [facility] [id number] [address] [place] [id number] Nov, Bipolar 1 disorder, mixed F3 1.60 [place] [id number] [facility] [id number] [address] [place] [id number] Nov, Major depressive disorder, r ecurrent episode, moderate F33.1 [place] [id number] [facility] [id number] [address] [place] [id number] Nov, Cervicalgia M54.2 ; Arthralg ia of hip, unspecified laterality M25.559 ; Allergic rhinitis J30.9 and Hormone replacement therapy Z79.890 [facility] [address] [id number] [address] [place] [id number] Nov, Other seasonal allergic rhin itis J30.2 [facility] [address] [facility] [id number] [address] [place] [id number] October, Major depressive disorder, r ecurrent episode, moderate F33.1 [facility] [address] [facility] [id number] [address] [place] [phone] October, Major depressive disorder, r ecurrent episode, moderate F33.1 and Arthralgia of hip, unspecified laterality M25.559 [facility] [address] [facility] [id number] [address] [place] [id number] October, Grief F43.20 ; Hypertension I10 ; Hyperlipidemia, unspecified hyperlipidemia type E78.5 ; Other chronic pain G89.29 and Allergic rhinitis, unspecified allergic rhinitis type J30.9 [place] [address] [facility] [id number] [address] [place] [id number] October, Major depressive disorder, r ecurrent episode, moderate F33.1 [place] [address] [id number] [address] [place] [id number] Sep, Major depressive disorder, r ecurrent episode, moderate F33.1 [place] [address] [facility] [id number] [address] [place] [id number] Sep, [place] [address] [facility] [id number] [address] [place] [phone] Sep, Major depressive disorder, r ecurrent episode, moderate F33.1 [place] [address] [facility] [id number] [address] [place] [id number] Sep, Grief F43.20 [place] [id number] [facility] [id number] [address] [place] [phone] Aug, Major depressive disorder, r ecurrent episode, moderate F33.1 [place] [address] [facility] [id number] [address] [place] [phone] Aug, Bipolar 1 disorder, mixed F3 1.60 [place] [address] [facility] [id number] [address] [place] [id number] Aug, Allergic rhinitis J30.9 ; Ce rvicalgia M54.2 and Low back pain M54.5 [facility] [address] [facility] [id number] [address] [place] [id number] Aug, Major depressive disorder, r ecurrent episode, moderate F33.1 [facility] [address] [id number] [address] [place] [id number] Aug, Sinusitis J32.9 and Tobacco 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 [facility] [address] [id number] [address] [place] [id number] Aug, [facility] [address] [facility] [id number] [address] [place] [id number] Aug, Depressive disorder, not els ewhere classified F32.9 ; Hormone replacement therapy Z79.[address] scan, head R93.0 [facility] [address] [id number] [address] [place] [id number] Aug, Major depressive disorder, r ecurrent episode, moderate F33.1 [facility] [address] [facility] [id number] [address] [place] [id number] Jul, Major depressive disorder, r ecurrent episode, moderate F33.1 [facility] [address] [facility] [id number] [address] [place] [id number] Jul, Abdominal pain R10.9 and Hyp ertension I10 [facility] [address] [id number] [address] [place] [phone] Jul, [facility] [address] [facility] [id number] [address] [place] [id number] Jul, Major depressive disorder, r ecurrent episode, moderate F33.1 [facility] [address] [facility] [id number] [address] [place] [id number] Jul, [facility] [address] [facility] [id number] [address] [place] [id number] Jul, [facility] [address] [facility] [id number] [address] [place] [id number] Jun, [facility] [address] [facility] [id number] [address] [place] [phone] Jun, Depressive disorder, not els ewhere classified F32.9 [facility] [address] [id number] [address] [place] [id number] Jun, [facility] [address] [id number] [address] [place] [id number] Jun, [facility] [address] [id number] [address] [place] [id number] Jun, Arthralgia of hip, unspecifi ed laterality M25.559 ; Bruising, spontaneous R23.3 and Night sweats R61 [facility] [address] [id number] [address] [place] [id number] Jun, [facility] [address] [id number] [address] [place] [id number] Jun, [facility] [address] [facility] [id number] [address] [place] [id number] May, [facility] [address] [facility] [id number] [address] [place] [id number] May, Myalgia M79.1 and Screening, lipid Z13.220 [facility] [address] [facility] [id number] [address] [place] [id number] Apr, Status post cervical spinal fusion Z98.1 ; Fibromyalgia M79.7 and Unsteady gait R26.81 [facility] [address] [id number] [address] [place] [phone] Nov, [facility] [address] [id number] [address] [place] [id number] Nov, [facility] [address] [id number] [address] [place] [id number] October, [facility] [address] [facility] [id number] [address] [place] [phone] October, [facility] [address] [facility] [id number] [address] [place] [id number] October, [facility] [address] [facility] [id number] [address] [place] [id number] October, [facility] [address] [id number] [address] [place] [address], [place] [address] October, [facility] [address] [id number] [address] [place] [address], [place] [address] October, Dysuria 788.1 ; Nausea 787.0 2 and Urinary tract infection 599.0 [facility] [address] [id number] [address] [place] [address], [place] [address] Sep, [facility] [address] [id number] [address] [place] [address], [place] [address] Sep, [facility] [address] [id number] [address] [place] [address], [place] [address] Aug, [facility] [address] [id number] [address] [place] [id number] Aug, [facility] [address] [id number] [address] [place] [address], [place] [address] Aug, [facility] [address] [id number] [address] [place] [address], [place] [address] Aug, [facility] [address] [id number] [address] [place] [address], [place] [address] Aug, [facility] [address] [id number] [address] [place] [id number] Aug, [facility] [address] [id number] [address] [place] [phone] Aug, [facility] [address] [id number] [address] [place] [id number] Aug, [facility] [address] [id number] [address] [place] [phone] Aug, [facility] [address] [id number] [address] [place] [id number] 18 Aug, 2014 [facility] [address] [id number] [address] [place] [id number] 18 Aug, 2014 [facility] [address] [id number] [facility] [place] [id number] 13 Aug, 2014 [facility] [address] [id number] [address] [place] [address], [place] [address] 13 Aug, 2014 [facility] [address] [id number] [address] [place] [address], [place] [address] Aug, [facility] [address] [id number] [address] [place] [address], [place] [address] Aug, [facility] [address] [id number] [address] [place] [address], [place] [address] Aug, [facility] [address] [id number] [address] [place] [address], [place] [address] Aug, [facility] [address] [id number] [address] [place] [address], [place] [address] Aug, [facility] [address] [id number] [address] [place] [address], [place] [address] 05 Aug, 2014 [facility] [address] [id number] [address] [place] [address], [place] [address] Aug, [facility] [address] [id number] [address] [place] [address], [place] [address] Aug, [facility] [address] [id number] [address] [place] [address], [place] [address] Aug, [facility] [address] [id number] [address] [place] [address], [place] [address] Jul, [facility] [address] [id number] [address] [place] [address], [place] [address] Jul, [facility] [address] [id number] [address] [place] [address], [place] [address] Jul, [facility] [address] [id number] [address] [place] [address], [place] [address] Jul, [facility] [address] [id number] [address] [place] [address], [place] [address] Jul, 2014 [facility] [address] [id number] [address] [place] [address], [place] [address] Jul, 2014 [facility] [address] [id number] [address] [place] [address], [place] [address] Jul, 2014 [facility] [address] [id number] [address] [place] [address], [place] [address] Jul, 2014 [facility] [address] [id number] [address] [place] [address], [place] [address] Jul, 2014 [facility] [address] [id number] [address] [place] [address], [place] [address] Jul, 2014 [facility] [address] [id number] [address] [place] [address], [place] [address] Jul, [facility] [address] [id number] [address] [place] [address], [place] [address] Jul, 2014 [facility] [address] [id number] [address] [place] [address], [place] [address] Jul, [facility] [address] [id number] [address] [place] [address], [place] [address] Jul, [facility] [address] [id number] [address] [place] [id number] Jun, [facility] [address] [id number] [address] [place] [id number] Jun, [facility] [address] [id number] [address] [place] [id number] Jun, [facility] [address] [id number] [address] [place] [id number] Jun, [facility] [address] [id number] [address] [place] [id number] Jun, [facility] [address] [id number] [address] [place] [id number] Jun, [facility] [address] [id number] [address] [place] [address], [place] [address] May, [facility] [address] [id number] [address] [place] [address], [place] [address] May, [facility] [address] [id number] [address] [place] [address], [place] [address] May, [facility] [address] [id number] [address] [place] [address], [place] [address] May, [facility] [address] [id number] [address] [place] [address], [place] [address] May, [facility] [address] [id number] [address] [place] [address], [place] [address] May, [facility] [address] [id number] [address] [place] [address], [place] [address] Apr, [facility] [address] [id number] [address] [place] [address], [place] [address] Apr, [facility] [address] [id number] [address] [place] [address], [place] [address] Apr, [facility] [address] [id number] [address] [place] [address], [place] [address] Apr, [facility] [address] [id number] [address] [place] [id number] Apr, [facility] [address] [id number] [address] [place] [id number] Apr, [facility] [address] [id number] [address] [place] [address], [place] [address] Mar, [facility] [address] [id number] [address] [place] [address], [place] [address] Mar, [facility] [address] [id number] [address] [place] [address], [place] [address] Mar, [facility] [address] [id number] [address] [place] [address], [place] [address] 09 Mar, 2013 [facility] [address] [id number] [address] [place] [address], [place] [address] Mar, 2013 [facility] [address] [id number] [address] [place] [address], [place] [address] Mar, 2013 [facility] [address] [id number] [address] [place] [address], [place] [address] Mar, 2013 [facility] [address] [id number] [address] [place] [address], [place] [address] Mar, 2013 [facility] [address] [id number] [address] [place] [address], [place] [address] Mar, 2013 [facility] [address] [id number] [address] [place] [address], [place] [address] Mar, 2013 [facility] [address] [id number] [address] [place] [address], [place] [address] Mar, 2013 [facility] [address] [id number] [address] [place] [address], [place] [address] Mar, 2013 [facility] [address] [id number] [address] [place] [address], [place] [address] 30 Feb, 2013 [facility] [address] [id number] [address] [place] [address], [place] [address] 29 Sep, 2013 [facility] [address] [id number] [address] [place] [address], [place] [address] 29 Sep, 2013 [facility] [address] [id number] [address] [place] [address], [place] [address] 23 Sep, 2013 [facility] [address] [id number] [address] [place] [address], [place] [address] 23 Feb, 2013 [facility] [address] [id number] [address] [place] [address], [place] [address] 08 Sep, 2013 [facility] [address] [id number] [address] [place] [address], [place] [address] Feb, [facility] [address] [id number] [facility] [place] [address] Jan, [facility] [address] [id number] [address] [place] [address], [place] [address] Jan, [facility] [address] [id number] [address] [place] [address], [place] [address] Jan, [facility] [address] [id number] [address] [place] [address], [place] [address] Dec, [facility] [address] [id number] [address] [place] [address], [place] [address] Dec, [facility] [address] [id number] [address] [place] [address], [place] [address] Dec, [facility] [address] [id number] [address] [place] [address], [place] [address] Dec, [facility] [address] [id number] [address] [place] [address], [place] [address] Sep, [facility] [address] [id number] [address] [place] [address], [place] [address] Sep, [facility] [address] [id number] [address] [place] [address], [place] [address] Sep, [facility] [address] [id number] [address] [place] [address], [place] [address] Sep, [facility] [address] [id number] [address] [place] [address], [place] [address] Sep, [facility] [address] [id number] [address] [place] [address], [place] [address] Sep, [facility] [address] [id number] [address] [place] [address], [place] [address] Sep, [facility] [address] [id number] [address] [place] [address], [place] [address] Sep, [facility] [address] [id number] [address] [place] [address], [place] [address] 10 Aug, 2013 [facility] [address] [id number] [address] [place] [address], [place] [address] 10 Aug, 2013 [facility] [address] [id number] [address] [place] [address], [place] [address] May, [facility] [address] [id number] [address] [place] [address], [place] [address] May, [facility] [address] [id number] [address] [place] [address], [place] [address] Apr, [facility] [address] [id number] [address] [place] [address], [place] [address] Apr, [facility] [address] [id number] [address] [place] [address], [place] [address] Apr, [facility] [address] [id number] [address] [place] [address], [place] [address] Apr, [facility] [address] [id number] [address] [place] [address], [place] [address] Apr, [facility] [address] [id number] [address] [place] [address], [place] [address] Apr, [facility] [address] [id number] [address] [place] [address], [place] [address] May, [facility] [address] [id number] [address] [place] [address], [place] [id number] 18 May, 2012 [facility] [address] [id number] [address] [place] [address], [place] [id number] 15 May, 2012 [facility] [address] [id number] [address] [place] [address], [place] [address] 15 May, 2012 [facility] [address] [id number] [address] [place] [address], [place] [address] 13 May, 2012 [facility] [address] [id number] [address] [place] [address], [place] [address] 13 May, 2012 [facility] [address] [id number] [address] [place] [address], [place] [address] 13 Apr, 2012 [facility] [address] [id number] [address] [place] [address], [place] [address] 13 Apr, 2012 [facility] [address] [id number] [address] [place] [address], [place] [address] 08 Apr, 2012 [facility] [address] [id number] [address] [place] [address], [place] [address] Apr, [facility] [address] [id number] [address] [place] [address], [place] [address] Apr, [facility] [address] [id number] [address] [place] [address], [place] [address] Apr, [facility] [address] [id number] [address] [place] [address], [place] [address] Apr, [facility] [address] [id number] [address] [place] [address], [place] [address] Apr, [facility] [address] [id number] [address] [place] [address], [place] [address] Apr, [facility] [address] [id number] [address] [place] [address], [place] [address] Apr, [facility] [address] [id number] [address] [place] [address], [place] [address] Mar, [facility] [address] [id number] [address] [place] [address], [place] [address] Mar, [facility] [address] [id number] [address] [place] [address], [place] [address] Mar, [facility] [address] [id number] [address] [place] [address], [place] [address] Mar, [facility] [address] [id number] [address] [place] [address], [place] [address] Mar, [facility] [address] [id number] [address] [place] [address], [place] [address] Mar, [facility] [address] [id number] [address] [place] [address], [place] [address] Mar, [facility] [address] [id number] [address] [place] [address], [place] [id number] Mar, [facility] [address] [id number] [address] [place] [address], [place] [address] Mar, [facility] [address] [id number] [address] [place] [address], [place] [id number] 25 Feb, 2012 [facility] [address] [id number] [address] [place] [address], [place] [id number] 16 Feb, 2012 [facility] [address] [id number] [address] [place] [address], [place] [address] Feb, [facility] [address] [id number] [address] [place] [address], [place] [address] Jan, [facility] [address] [id number] [address] [place] [address], [place] [id number] Jan, [facility] [address] [id number] [address] [place] [address], [place] [address] Jan, [facility] [address] [id number] [address] [place] [address], [place] [id number] Jan, [facility] [address] [id number] [address] [place] [address], [place] [address] Jan, [facility] [address] [id number] [address] [place] [address], [place] [address] Jan, [facility] [address] [id number] [address] [place] [address], [place] [id number] 16 Jan, 2012 [facility] [address] [id number] [address] [place] [address], [place] [address] Jan, [facility] [address] [id number] [address] [place] [address], [place] [address] Jan, [facility] [address] [id number] [address] [place] [address], [place] [address] Jan, [facility] [address] [id number] [address] [place] [address], [place] [id number] Dec, [facility] [address] [id number] [address] [place] [address], [place] [id number] Dec, [facility] [address] [id number] [address] [place] [address], [place] [address] Dec, [facility] [address] [id number] [address] [place] [address], [place] [address] Dec, [facility] [address] [id number] [address] [place] [address], [place] [id number] Nov, [facility] [address] [id number] [address] [place] [address], [place] [address] Nov, [facility] [address] [id number] [address] [place] [address], [place] [address] Nov, [facility] [address] [id number] [address] [place] [address], [place] [address] October, [facility] [address] [id number] [address] [place] [address], [place] [address] October, [facility] [address] [id number] [address] [place] [address], [place] [address] October, [facility] [address] [id number] [address] [place] [address], [place] [address] October, [facility] [address] [id number] [address] [place] [address], [place] [address] October, [facility] [address] [id number] [address] [place] [address], [place] [address] October, [facility] [address] [id number] [address] [place] [address], [place] [address] Aug, [facility] [address] [id number] [address] [place] [address], [place] [address] Mar, [facility] [address] [facility] [id number] [address] [place] [id number] 16 Nov, 2010 [facility] [address] [facility] [id number] [address] [place] [id number] May, [facility] [address] [facility] [id number] [address] [place] [id number] May, [facility] [address] [facility] [id number] [address] [place] [id number] Apr, [facility] [address] [facility] [id number] [address] [place] [id number] Mar, [facility] [address] [facility] [id number] [address] [place] [id number] Mar, IMMUNIZATIONS No Known Immunizations SOCIAL HISTORY Never Assessed REASON FOR VISIT BH f/u PLAN OF CARE Activity Details Follow Up 1 Week Reason: F/U VITAL SIGNS MEDICATIONS Unknown Medications RESULTS No Results PROCEDURES Procedure Date Ordered Result Body Site [facility] VISIT [facility] ESTAB PT Jun 07, 2017 Psychotherapy, patient &/family, 30 minutes, established patient Jun 07, 2017 INSTRUCTIONS MEDICATIONS ADMINISTERED No Known [...]
--- OUTSIDE RECORDS SUMMARY | 2019-06-19 05:59 | XMS REPORT ---
Author Author Sydnie MORTON Organization [facility] Address [address] [place] [address] Care Team Providers Care Studio Musician Name Role Phone JOHN MORTON Unavailable PROBLEMS Type Condition ICD9-CM Code GKT52-CX Code Onset Dates Condition S tatus SNOMED Code Problem Hormone replacement therapy Z79.890 Ac tive 417462880 Problem Abnormal CT scan, head R93.0 Active 585825274 Problem Sensorineural hearing loss (SNHL) of both ears H90 .3 Active 096163409 Problem History of colon polyps Z86.010 Active 993883164 Problem Bruising, spontaneous R23.3 Active 365994749 Problem Generalized anxiety disorder F41.1 A ctive 49654410 Problem Arthralgia of hip, unspecified laterality M25.559 Active 76667304 Problem Hematuria, unspecified type R31.9 Ac tive 74139886 Problem Imbalance R26.89 Active 556645408 Problem Hammer toe of right foot M20.41 Activ e 937394967 Problem Plantar wart of right foot B07.0 Act mitchell [id number] Problem Sciatica of left side M54.32 Active 00278133 Problem Hyperlipidemia, unspecified hyperlipidemia type E7 8.5 Active 92248211 Problem Hypertension I10 Active 3371318 3 Problem Night sweats R61 Active 7396357 0 Problem Fibromyalgia M79.7 Active 5911927 7 Problem Major depressive disorder, recurrent episode, moderate F33.1 Active 456139087 Problem Acute left-sided low back pain with left-sided sciatica M54.42 Active 883969551 Problem Bladder spasm N32.89 Active 058700 006 Problem Gastritis without bleeding, unspecified chronicity, unspecified gastritis type K29.70 Active 595721585 Problem Bipolar 1 disorder, mixed F31.60 Acti ve 73293901 Problem Grief F43.20 Active 81619456 Problem Other chronic pain G89.29 Active 8 7572281 Problem Allergic rhinitis J30.9 Active 61 160922 Problem Hot flashes due to menopause N95.1 A ctive 153678434 Problem Ataxia R27.0 Active 27587508 Problem Hearing loss, unspecified laterality H91.90 Active 74237306 ALLERGIES No Information ENCOUNTERS Encounter Location Date Diagnosis [facility] [address] [address] Dec, [facility] [address] [address] Nov, [facility] [address] [address] Nov, [place] [address] [address] Nov, [facility] [address] [address] Nov, [facility] [address] [address] October, Bipolar 1 disorder, mixed F3 1.60 [facility] IN [facility] [address] [address] October, Acute nasopharyngitis J00 [facility] [address] [address] October, Bitten or stung by nonvenomo us insect and other nonvenomous arthropods, initial encounter W57.XXXA and Insect bite (nonvenomous) of abdominal wall, initial encounter S30.861A [facility] [address] [place] [id number] [place] [address] October, Insect bite (nonvenomous) of abdominal wall, initial encounter S30.861A ; Bitten or stung by nonvenomous insect and other nonvenomous arthropods, initial encounter W57.XXXA ; Allergic rhinitis J30.9 and Low back pain M54.5 [facility] [address] [place] [id number] [place] [address] October, Bipolar 1 disorder, mixed F3 1.60 [facility] [address] [id number] [address] [place] [address] October, [facility] [address] [id number] [address] [place] [address] October, [facility] [address] [facility] [id number] [address] [place] [address] October, Bipolar 1 disorder, mixed F3 1.60 [facility] [address] [id number] [address] [place] [address] Sep, Bipolar 1 disorder, mixed F3 1.60 [facility] [address] [facility] [id number] [address] [place] [address] Sep, Other chronic pain G89.29 [facility] [address] [facility] [id number] [address] [place] [address] Sep, [facility] [address] [id number] [address] [place] [address] Sep, Bipolar 1 disorder, mixed F3 1.60 [facility] [address] [facility] [id number] [address] [place] [address] Sep, Allergic rhinitis J30.9 and Sciatica of left side M54.32 [facility] [address] [facility] [id number] [address] [place] [address] Sep, Bipolar 1 disorder, mixed F3 1.60 [facility] [address] [id number] [address] [place] [address] Sep, Bipolar 1 disorder, mixed F3 1.60 and Generalized anxiety disorder F41.1 [facility] [address] [facility] [id number] [address] [place] [address] Aug, [facility] [address] [facility] [id number] [address] [place] [address] Aug, Bipolar 1 disorder, mixed F3 1.60 [facility] [address] [facility] [id number] [address] [place] [address] Aug, Bipolar 1 disorder, mixed F3 1.60 [facility] [address] [facility] [id number] [address] [place] [address] Aug, [facility] [address] [facility] [id number] [address] [place] [address] Aug, Generalized anxiety disorder F41.1 [facility] [address] [facility] [id number] [address] [place] [address] Aug, Bipolar 1 disorder, mixed F3 1.60 [facility] [address] [facility] [id number] [address] [place] [address] Aug, Plantar wart of right foot B 07.0 [facility] [address] [facility] [id number] [address] [place] [address] Aug, Bipolar 1 disorder, mixed F3 1.60 [facility] [address] [facility] [id number] [address] [place] [address] Jul, Bipolar 1 disorder, mixed F3 1.60 [facility] [address] [facility] [id number] [address] [place] [address] Jul, [facility] [address] [facility] [id number] [address] [place] [address] Jul, Bipolar 1 disorder, mixed F3 1.60 [facility] [address] [facility] [id number] [address] [place] [address] Jul, Generalized anxiety disorder F41.1 [facility] [address] [facility] [id number] [address] [place] [address] Jul, Bipolar 1 disorder, mixed F3 1.60 [facility] [address] [facility] [id number] [address] [place] [address] 07 Jul, 2017 Acute left-sided low back pa in with left-sided sciatica M54.42 [facility] [address] [facility] [id number] [address] [place] [address] Jul, Coccydynia M53.3 [place] [address] [place] [id number] [place] [address] Jun, Bipolar 1 disorder, mixed F3 1.60 [facility] [address] [place] [id number] [address] [place] [address] Jun, Acute nasopharyngitis J00 [place] [address] [place] [id number] [place] [address] Jun, Bipolar 1 disorder, mixed F3 1.60 [place] [address] [place] [address] Jun, Fibromyalgia M79.7 [place] [address] [place] [id number] [place] [address] Jun, Bipolar 1 disorder, mixed F3 1.60 [place] [address] [address] Jun, Fibromyalgia M79.7 and Bipol ar 1 disorder, mixed F31.60 [place] [address] [place] [address] May, Bipolar 1 disorder, mixed F3 1.60 ; Generalized anxiety disorder F41.1 and Other fdc (current) drug therapy Z79.899 [place] [address] [place] [address] May, Bipolar 1 disorder, mixed F3 1.60 [facility] [address] [place] [id number] [place] [address] 14 May, 2017 Cough R05 and Body aches R52 [facility] WALK IN [place] [id number] [place] [address] 10 May, 2017 Bladder spasm N32.89 and Acu te cystitis without hematuria N30.00 [place] [address] [place] [id number] [place] [address] May, Bipolar 1 disorder, mixed F3 1.60 [facility] [address] [place] [address] Apr, [facility] [address] [address] Apr, Major depressive disorder, r ecurrent episode, moderate F33.1 and Encounter for immunization Z23 [facility] [address] [address] Apr, Bipolar 1 disorder, mixed F3 1.60 [facility] [address] [address] Apr, Bipolar 1 disorder, mixed F3 1.60 [place] [address] [address] 16 Apr, 2017 Bipolar 1 disorder, mixed F3 1.60 [place] [address] [address] Apr, Yeast vaginitis B37.3 [facility] [address] [address] Apr, Bipolar 1 disorder, mixed F3 1.60 [facility] [address] [place] [id number] [place] [address] 07 Apr, 2017 Encounter for immunization Z 23 and Cellulitis L03.90 [facility] [address] [address] Apr, Bipolar 1 disorder, mixed F3 1.60 [facility] [address] [place] [id number] [place] [address] Mar, Bipolar 1 disorder, mixed F3 1.60 [facility] [address] [address] Mar, Bipolar 1 disorder, mixed F3 1.60 [facility] [address] [place] [id number] [place] [address] Mar, Imbalance R26.89 and Encount er for immunization Z23 [place] [address] [place] [id number] [place] [address] Mar, Generalized anxiety disorder F41.1 [place] [address] [place] [address] Mar, Bipolar 1 disorder, mixed F3 1.60 [place] [address] [address] Mar, Generalized anxiety disorder F41.1 [place] [address] [place] [id number] [place] [address] Mar, Bipolar 1 disorder, mixed F3 1.60 [place] [address] [address] Mar, Bipolar 1 disorder, mixed F3 1.60 [place] [address] [address] Feb, Bipolar 1 disorder, mixed F3 1.60 [place] [address] [address] Feb, Bipolar 1 disorder, mixed F3 1.60 and Generalized anxiety disorder F41.1 [place] [address] [address] Feb, Gastritis without bleeding, unspecified chronicity, unspecified gastritis type K29.70 ; Hammer toe of right foot M20.41 and Other viral warts B07.8 [place] [address] [place] [id number] [place] [address] 20 Feb, 2017 Bipolar 1 disorder, mixed F3 1.60 [place] [address] [address] 13 Feb, 2017 Bipolar 1 disorder, mixed F3 1.60 [place] [address] [address] 05 Feb, 2017 Bipolar 1 disorder, mixed F3 1.60 [place] [address] [place] [id number] [place] [address] Jan, Encounter for screening mamm ogram for breast cancer Z12.31 ; Other viral warts B07.8 and Allergic rhinitis J30.9 [facility] [address] [facility] [id number] [address] [place] [address] Jan, Bipolar 1 disorder, mixed F3 1.60 [facility] [address] [facility] [id number] [address] [place] [address] Jan, Bipolar 1 disorder, mixed F3 1.60 [facility] [address] [facility] [id number] [address] [place] [address] Jan, [facility] [address] [facility] [id number] [address] [place] [address] Jan, Bipolar 1 disorder, mixed F3 1.60 [place] [address] [place] [id number] [place] [address] Jan, Bipolar 1 disorder, mixed F3 1.60 [place] [address] [place] [id number] [place] [address] Jan, Allergic rhinitis J30.9 ; He maturia R31.9 and Colon cancer screening Z12.11 [facility] [address] [place] [id number] [place] [address] Dec, Bipolar 1 disorder, mixed F3 1.60 [facility] [address] [place] [id number] [place] [address] Dec, Bipolar 1 disorder, mixed F3 1.60 ; Generalized anxiety disorder F41.1 and 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 [facility] [address] [place] [id number] [place] [address] Dec, Bipolar 1 disorder, mixed F3 1.60 [facility] [address] [place] [id number] [place] [address] Dec, Bipolar 1 disorder, mixed F3 1.60 [facility] [address] [place] [id number] [place] [address] Dec, Bipolar 1 disorder, mixed F3 1.60 [facility] [address] [facility] [id number] [address] [place] [address] Dec, Low back pain M54.5 and Recu rrent urinary tract infection N39.0 [facility] [address] [facility] [id number] [address] [place] [address] Nov, Bipolar 1 disorder, mixed F3 1.60 [facility] [address] [facility] [id number] [address] [place] [address] Nov, Bipolar 1 disorder, mixed F3 1.60 [facility] [address] [place] [id number] [place] [address] Nov, Bipolar 1 disorder, mixed F3 1.60 [facility] [address] [place] [id number] [place] [address] Nov, Bipolar 1 disorder, mixed F3 1.60 [facility] [address] [facility] [id number] [address] [place] [address] Nov, [facility] [address] [facility] [id number] [address] [place] [address] Nov, Anesthesia of skin R20.0 ; F requent UTI N39.0 ; Tobacco abuse Z72.0 and Colon cancer screening Z12.11 [facility] [address] [place] [id number] [place] [address] Nov, Bipolar 1 disorder, mixed F3 1.60 [facility] [address] [facility] [id number] [address] [place] [address] October, Bipolar 1 disorder, mixed F3 1.60 [facility] [address] [facility] [id number] [address] [place] [address] October, Bipolar 1 disorder, mixed F3 1.60 [facility] [address] [facility] [id number] [address] [place] [address] October, Bipolar 1 disorder, mixed F3 1.60 [facility] [address] [facility] [id number] [address] [place] [address] October, Bipolar 1 disorder, mixed F3 1.60 [place] [address] [place] [id number] [place] [address] October, Bipolar 1 disorder, mixed F3 1.60 [place] [address] [place] [id number] [place] [address] October, Cervicalgia M54.2 and Bipola r 1 disorder, mixed F31.60 [place] [address] [place] [id number] [place] [address] October, Hypertension I10 ; Hyperlipi demia, unspecified hyperlipidemia type E78.5 and Family history of thyroid disease Z83.49 [place] [address] [place] [address] October, [place] [address] [place] [id number] [place] [address] October, Hypertension I10 ; Hyperlipi demia, unspecified hyperlipidemia type E78.5 and Family history of thyroid problem Z83.49 [place] [address] [place] [id number] [place] [address] October, Bipolar 1 disorder, mixed F3 1.60 [place] [address] [place] [id number] [place] [address] Sep, Bipolar 1 disorder, mixed F3 1.60 [place] [address] [place] [id number] [place] [address] Sep, Bipolar 1 disorder, mixed F3 1.60 [place] [address] [place] [id number] [place] [address] Sep, Bipolar 1 disorder, mixed F3 1.60 [place] [address] [place] [id number] [place] [address] Sep, History of colon polyps Z86. 010 and Hematochezia K92.1 [place] [address] [facility] [id number] [address] [place] [address] Sep, Major depressive disorder, r ecurrent episode, moderate F33.1 [facility] [address] [facility] [id number] [address] [place] [address] Sep, Bipolar 1 disorder, mixed F3 1.60 [facility] [address] [facility] [id number] [address] [place] [address] Aug, Hot flashes due to menopause N95.1 [facility] [address] [facility] [id number] [address] [place] [address] Aug, Bipolar 1 disorder, mixed F3 1.60 [facility] [address] [place] [id number] [place] [address] Aug, [facility] [address] [place] [id number] [place] [address] Aug, Bipolar 1 disorder, mixed F3 1.60 [facility] [address] [place] [id number] [place] [address] Aug, Bipolar 1 disorder, mixed F3 1.60 [facility] [address] [place] [id number] [place] [address] Aug, Hot flashes due to menopause N95.1 ; Cervicalgia M54.2 and Ataxia R27.0 [facility] [address] [place] [id number] [place] [address] Jul, Bipolar 1 disorder, mixed F3 1.60 [facility] [address] [place] [id number] [place] [address] Jul, Bipolar 1 disorder, mixed F3 1.60 [facility] [address] [facility] [id number] [address] [place] [address] Jul, Bipolar 1 disorder, mixed F3 1.60 [facility] [address] [place] [id number] [place] [address] Jul, Bipolar 1 disorder, mixed F3 1.60 [place] [address] [address] Jul, Bipolar 1 disorder, mixed F3 1.60 [place] [address] [place] [id number] 08 Jul, 2016 Cervicalgia M54.2 ; Tremor R 25.1 ; Hearing abnormally acute, unspecified laterality H93.239 ; Alopecia L65.9 ; Encounter for immunization Z23 and Family history of thyroid disease Z83.49 [place] [address] [address] Jul, Bipolar 1 disorder, mixed F3 1.60 [place] [address] [place] 99[address] Jun, [place] [address] [place] 99[address] Jun, Hearing disorder, unspecifie d laterality H93.299 [place] [address] [address] Jun, Bipolar 1 disorder, mixed F3 1.60 [place] [address] [address] Jun, Bipolar 1 disorder, mixed F3 1.60 [place] [address] [address] Jun, Allergic rhinitis J30.9 [place] [address] [address] Jun, Bipolar 1 disorder, mixed F3 1.60 [place] [address] [address] Jun, Bipolar 1 disorder, mixed F3 1.60 [place] [address] [address] Jun, Allergic rhinitis J30.9 [place] [address] [address] Jun, Allergic rhinitis J30.9 [facility] [address] [facility] [id number] [address] [place] [address] Jun, Bipolar 1 disorder, mixed F3 1.60 [facility] [address] [facility] [id number] [address] [place] [address] May, Bipolar 1 disorder, mixed F3 1.60 [facility] [address] [facility] [id number] [address] [place] [address] May, Bipolar 1 disorder, mixed F3 1.60 [facility] [address] [facility] [id number] [address] [place] [address] May, [facility] [address] [facility] [id number] [address] [place] [address] May, Bipolar 1 disorder, mixed F3 1.60 [facility] [address] [facility] [id number] [address] [place] [address] May, Bipolar 1 disorder, mixed F3 1.60 [facility] [address] [facility] [id number] [address] [place] [address] May, [facility] [address] [facility] [id number] [address] [place] [address] May, [facility] [address] [place] [id number] [place] [address] May, [facility] [address] [facility] [id number] [address] [place] [address] May, Abdominal pain, unspecified location R10.9 [facility] [address] [facility] [id number] [address] [place] [id number] May, [facility] [address] [id number] [address] [place] [address] Apr, Hematuria R31.9 ; Ataxia R27 .0 and Hearing loss, unspecified laterality H91.90 [facility] [address] [facility] [id number] [address] [place], [place] [id number] Apr, Bipolar 1 disorder, mixed F3 1.60 [facility] [id number] [place] [id number] Apr, Acute effusion of both middl e ears H65.193 [facility] [id number] [place] [id number] 10 Apr, 2016 Hematuria R31.9 and Pyelonep hritis N12 [facility] [address] [id number] Apr, [place] [address] [address] Mar, Bipolar 1 disorder, mixed F3 1.60 [facility] [address] [id number] Mar, [facility] [address] [address] Mar, Bipolar 1 disorder, mixed F3 1.60 [place] [address] [address] Mar, Bipolar 1 disorder, mixed F3 1.60 [facility] [address] [id number] Mar, Encounter for immunization Z 23 and Gastritis without bleeding, unspecified chronicity, unspecified gastritis type K29.70 [facility] [id number] [place] [id number] Mar, Bipolar 1 disorder, mixed F3 1.60 and Grief F43.20 [place] [address] [address] Mar, Gastritis without bleeding, unspecified chronicity, unspecified gastritis type K29.70 [facility] [id number] [place] [address] [address] Mar, Bipolar 1 disorder, mixed F3 1.60 [place] [address] [facility] [id number] [address] [place] [address] 05 Mar, 2016 Gastritis without bleeding, unspecified chronicity, unspecified gastritis type K29.70 [facility] [address] [facility] [id number] [address] [place] [address] Mar, [facility] [address] [facility] [id number] [address] [place] [address] Feb, Bipolar 1 disorder, mixed F3 1.60 [facility] [address] [facility] [id number] [address] [place] [address] Feb, Bipolar 1 disorder, mixed F3 1.60 and Grief F43.20 [place] [address] [facility] [id number] [address] [place] [address] Feb, Gastritis without bleeding, unspecified chronicity, unspecified gastritis type K29.70 [place] [address] [place] [id number] [address] [place] [address] 14 Feb, 2016 Bipolar 1 disorder, mixed F3 1.60 [facility] [address] [facility] [id number] [address] [place] [address] 09 Feb, 2016 Gastroesophageal reflux dise ase, esophagitis presence not specified K21.9 [facility] [address] [facility] [id number] [address] [place] [address] Jan, Bipolar 1 disorder, mixed F3 1.60 [facility] [address] [place] [id number] [address] [place] [address] Jan, Bipolar 1 disorder, mixed F3 1.60 and Unsteady gait R26.81 [place] [address] [facility] [id number] [address] [place] [address] Jan, Bipolar 1 disorder, mixed F3 1.60 [facility] [address] [place] [id number] [address] [place] [address] Jan, Bipolar 1 disorder, mixed F3 1.60 and Other fdc (current) drug therapy Z79.899 [place] [address] [place] [id number] [address] [place] [address] Jan, Bipolar 1 disorder, mixed F3 1.60 [facility] [address] [place] [id number] [address] [place] [address] Jan, Bipolar 1 disorder, mixed F3 1.60 [facility] [address] [place] [id number] [address] [place] [address] Jan, Bipolar 1 disorder, mixed F3 1.60 ; Grief F43.20 and 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 [facility] [address] [place] [id number] [address] [place] [address] Jan, Bipolar 1 disorder, mixed F3 1.60 [facility] [address] [place] [id number] [address] [place] [address] Dec, [facility] [address] [address] Dec, Bipolar 1 disorder, mixed F3 1.60 ; Vitamin D deficiency, unspecified E55.9 ; H/O allergic rhinitis Z87.09 ; Other chronic pain G89.29 and Dorsalgia, unspecified M54.9 [facility] [address] [place] [id number] [address] [place] [address] Dec, [facility] [address] [place] [id number] [address] [place] [address] Dec, Bipolar 1 disorder, mixed F3 1.60 [facility] [address] [place] [id number] [address] [place] [address] Dec, Major depressive disorder, r ecurrent episode, moderate F33.1 [facility] [address] [place] [id number] [address] [place] [address] Dec, Major depressive disorder, r ecurrent episode, moderate F33.1 [facility] [address] [place] [id number] [address] [place] [address] Nov, [facility] [address] [place] [id number] [address] [place] [address] Nov, Bipolar 1 disorder, mixed F3 1.60 [place] [address] [facility] [id number] [address] [place] [address] Nov, Major depressive disorder, r ecurrent episode, moderate F33.1 [place] [address] [facility] [id number] [address] [place] [address] Nov, Cervicalgia M54.2 ; Arthralg ia of hip, unspecified laterality M25.559 ; Allergic rhinitis J30.9 and Hormone replacement therapy Z79.890 [facility] [address] [facility] [id number] [address] [place] [address] Nov, Other seasonal allergic rhin itis J30.2 [place] [address] [place] [id number] [address] [place] [address] October, Major depressive disorder, r ecurrent episode, moderate F33.1 [place] [id number] [place] [address] October, Major depressive disorder, r ecurrent episode, moderate F33.1 and Arthralgia of hip, unspecified laterality M25.559 [place] [id number] [place] [address] October, Grief F43.20 ; Hypertension I10 ; Hyperlipidemia, unspecified hyperlipidemia type E78.5 ; Other chronic pain G89.29 and Allergic rhinitis, unspecified allergic rhinitis type J30.9 [place] [address] [place] [id number] [address] [place] [address] October, Major depressive disorder, r ecurrent episode, moderate F33.1 [place] [address] [place] [id number] [address] [place] [address] Sep, Major depressive disorder, r ecurrent episode, moderate F33.1 [place] [address] [place] [id number] [address] [place] [address] Sep, [place] [address] [place] [address] Sep, Major depressive disorder, r ecurrent episode, moderate F33.1 [place] [address] [address] Sep, Grief F43.20 [facility] [address] [address] Aug, Major depressive disorder, r ecurrent episode, moderate F33.1 [place] [address] [address] Aug, Bipolar 1 disorder, mixed F3 1.60 [place] [address] [address] Aug, Allergic rhinitis J30.9 ; Ce rvicalgia M54.2 and Low back pain M54.5 [place] [address] [address] Aug, Major depressive disorder, r ecurrent episode, moderate F33.1 [facility] [address] [address] Aug, Sinusitis J32.9 and Tobacco 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 [place] [address] [address] Aug, [facility] [address] [address] Aug, Depressive disorder, not els ewhere classified F32.9 ; Hormone replacement therapy Z79.[address] scan, head R93.0 [place] [address] [address] Aug, Major depressive disorder, r ecurrent episode, moderate F33.1 [facility] [address] [place] [id number] [address] [place] [address] Jul, Major depressive disorder, r ecurrent episode, moderate F33.1 [place] [address] [id number] [address] [place] [address] 17 Jul, 2015 Abdominal pain R10.9 and Hyp ertension I10 [facility] [address] [id number] [address] [place] [address] 08 Jul, 2015 [facility] [address] [facility] [id number] [address] [place] [address] Jul, Major depressive disorder, r ecurrent episode, moderate F33.1 [facility] [address] [id number] [address] [place] [address] 04 Jul, 2015 [facility] [address] [id number] [address] [place] [address] Jul, [facility] [address] [facility] [id number] [address] [place] [address] Jun, [facility] [address] [facility] [id number] [address] [place] [address] Jun, Depressive disorder, not els ewhere classified F32.9 [facility] [address] [id number] [address] [place] [address] Jun, [facility] [address] [facility] [id number] [address] [place] [address] Jun, [facility] [address] [facility] [id number] [address] [place] [address] Jun, Arthralgia of hip, unspecifi ed laterality M25.559 ; Bruising, spontaneous R23.3 and Night sweats R61 [facility] [address] [id number] [address] [place] [address] Jun, [facility] [address] [facility] [id number] [address] [place] [address] Jun, [facility] [address] [facility] [id number] [address] [place] [address] May, [facility] [address] [facility] [id number] [address] [place] [address] May, Myalgia M79.1 and Screening, lipid Z13.220 [facility] [address] [facility] [id number] [address] [place] [address] Apr, Status post cervical spinal fusion Z98.1 ; Fibromyalgia M79.7 and Unsteady gait R26.81 [facility] [address] [id number] [address] [place] [address] Nov, [facility] [address] [id number] [address] [place] [address] Nov, [facility] [address] [id number] [address] [place] [address] October, [facility] [address] [id number] [address] [place] [address] October, [facility] [address] [id number] [address] [place] [address] October, [facility] [address] [id number] [address] [place] [address] October, [facility] [address] [facility] [id number] [address] [place] [address] October, [facility] [address] [facility] [id number] [address] [place] [address] October, Dysuria 788.1 ; Nausea 787.0 2 and Urinary tract infection 599.0 [facility] [address] [id number] [address] [place] [address] Sep, [facility] [address] [id number] [address] [place] [address] Sep, [facility] [address] [facility] [id number] [address] [place] [address] Aug, [facility] [address] [id number] [address] [place] [address] Aug, [facility] [place] [facility] [address] [id number] [facility] [place] [address] 24 Aug, 2014 [facility] [address] [id number] [address] [place] [address], [place] [address] 24 Aug, 2014 [facility] [address] [id number] [facility] [place] [address] 23 Aug, 2014 [facility] [address] [id number] [address] [place] [address], [place] [address] 19 Aug, 2014 [facility] [address] [id number] [address] [place] [address], [place] [address] 19 Aug, 2014 [facility] [address] [id number] [address] [place] [address], [place] [address] 19 Aug, 2014 [facility] [address] [id number] [address] [place] [address], [place] [address] 19 Aug, 2014 [facility] [address] [id number] [address] [place] [address], [place] [address] 18 Aug, 2014 [facility] [address] [id number] [address] [place] [address], [place] [address] 18 Aug, 2014 [facility] [address] [id number] [address] [place] [address], [place] [address] 13 Aug, 2014 [facility] [address] [id number] [address] [place] [address], [place] [address] 13 Aug, 2014 [facility] [address] [id number] [address] [place] [address], [place] [address] 11 Aug, 2014 [facility] [address] [id number] [address] [place] [address], [place] [address] 11 Aug, 2014 [facility] [address] [id number] [address] [place] [address], [place] [address] 06 Aug, 2014 [facility] [address] [id number] [address] [place] [address], [place] [address] 06 Aug, 2014 [facility] [address] [id number] [address] [place] [address], [place] [address] 05 Aug, 2014 [facility] [address] [id number] [address] [place] [address], [place] [address] 05 Aug, 2014 [facility] [place] [facility] [address] [id number] [address] [place] [address], [place] [address] Aug, [facility] [place] [facility] [address] [id number] [address] [place] [address], [place] [address] Aug, [facility] [place] [facility] [address] [id number] [address] [place] [address], [place] [address] Aug, [facility] [place] [facility] [address] [id number] [address] [place] [address], [place] [address] Jul, 2014 [facility] [place] [facility] [address] [id number] [address] [place] [address], [place] [address] Jul, 2014 [facility] [place] [facility] [address] [id number] [address] [place] [address], [place] [address] Jul, 2014 [facility] [place] [facility] [address] [id number] [address] [place] [address], [place] [address] Jul, 2014 [facility] [place] [facility] [address] [id number] [address] [place] [address], [place] [address] Jul, 2014 [facility] [place] [facility] [address] [id number] [address] [place] [address], [place] [address] Jul, 2014 [facility] [place] [facility] [address] [id number] [address] [place] [address], [place] [address] Jul, 2014 [facility] [place] [facility] [address] [id number] [address] [place] [address], [place] [address] Jul, 2014 [facility] [place] [facility] [address] [id number] [address] [place] [address], [place] [address] Jul, 2014 [facility] [place] [facility] [address] [id number] [address] [place] [address], [place] [address] Jul, 2014 [facility] [place] [facility] [address] [id number] [address] [place] [address], [place] [address] 18 Jul, 2014 [facility] [place] [facility] [address] [id number] [address] [place] [address], [place] [address] Jul, 2014 [facility] [address] [id number] [address] [place] [address], [place] [address] Jul, [facility] [address] [id number] [address] [place] [address], [place] [address] Jul, [facility] [address] [id number] [address] [place] [address], [place] [address] Jun, [facility] [address] [id number] [address] [place] [address], [place] [address] Jun, [facility] [address] [id number] [address] [place] [address], [place] [address] Jun, [facility] [address] [id number] [address] [place] [address], [place] [address] Jun, [facility] [address] [id number] [address] [place] [address], [place] [address] Jun, [facility] [address] [id number] [address] [place] [address], [place] [address] Jun, [facility] [address] [id number] [address] [place] [address], [place] [address] May, [facility] [address] [id number] [address] [place] [address], [place] [address] May, [facility] [address] [id number] [address] [place] [address], [place] [address] May, [facility] [address] [id number] [address] [place] [address], [place] [address] May, [facility] [address] [id number] [address] [place] [address], [place] [address] May, [facility] [address] [id number] [address] [place] [address], [place] [address] May, [facility] [address] [id number] [address] [place] [address], [place] [address] Apr, [facility] [place] [facility] [address] [id number] [address] [place] [address], [place] [address] Apr, [facility] [place] [facility] [address] [id number] [address] [place] [address], [place] [address] Apr, [facility] [place] [facility] [address] [id number] [address] [place] [address], [place] [address] Apr, [facility] [place] [facility] [address] [id number] [address] [place] [address], [place] [address] Apr, [facility] [place] [facility] [address] [id number] [address] [place] [address], [place] [address] Apr, [facility] [place] [facility] [address] [id number] [address] [place] [address] Mar, [facility] [place] [facility] [address] [id number] [address] [place] [address], [place] [address] Mar, [facility] [place] [facility] [address] [id number] [address] [place] [address] Mar, [facility] [place] [facility] [address] [id number] [address] [place] [address] Mar, [facility] [place] [facility] [address] [id number] [address] [place] [address] Mar, [facility] [place] [facility] [address] [id number] [address] [place] [address] Mar, [facility] [place] [facility] [address] [id number] [address] [place] [address] Mar, [facility] [place] [facility] [address] [id number] [address] [place] [address], [place] [address] Mar, [facility] [place] [facility] [address] [id number] [address] [place] [address] Mar, [facility] [place] [facility] [address] [id number] [address] [place] [address] Mar, [facility] [place] [facility] [address] [id number] [address] [place] [address], [place] [address] Mar, [facility] [address] [id number] [address] [place] [address], [place] [address] Mar, [facility] [address] [id number] [address] [place] [address], [place] [address] 30 Feb, 2014 [facility] [address] [id number] [address] [place] [address], [place] [address] Feb, [facility] [address] [id number] [address] [place] [address], [place] [address] Feb, [facility] [address] [id number] [address] [place] [address], [place] [address] Feb, [facility] [address] [id number] [address] [place] [address], [place] [address] Feb, [facility] [address] [id number] [address] [place] [address], [place] [address] Feb, [facility] [address] [id number] [address] [place] [address], [place] [address] Feb, [facility] [address] [id number] [address] [place] [address], [place] [address] Jan, [facility] [address] [id number] [address] [place] [address], [place] [address] Jan, [facility] [address] [id number] [address] [place] [address], [place] [address] Jan, [facility] [address] [id number] [address] [place] [address], [place] [address] Dec, [facility] [address] [id number] [address] [place] [address], [place] [address] Dec, [facility] [address] [id number] [address] [place] [address], [place] [address] Dec, [facility] [address] [id number] [address] [place] [address], [place] [address] Dec, [facility] [address] [id number] [address] [place] [address], [place] [address] Sep, [facility] [address] [id number] [address] [place] [address], [place] [address] Sep, [facility] [address] [id number] [address] [place] [address], [place] [address] Sep, [facility] [address] [id number] [address] [place] [address], [place] [address] Sep, [facility] [address] [id number] [address] [place] [address], [place] [address] Sep, [facility] [address] [id number] [address] [place] [address], [place] [address] Sep, [facility] [address] [id number] [address] [place] [address], [place] [address] Sep, [facility] [address] [id number] [address] [place] [address], [place] [address] Sep, [facility] [address] [id number] [address] [place] [address], [place] [address] Aug, [facility] [address] [id number] [address] [place] [address], [place] [address] Aug, [facility] [address] [id number] [address] [place] [address], [place] [address] May, [facility] [address] [id number] [address] [place] [address], [place] [address] May, [facility] [address] [id number] [address] [place] [address], [place] [address] Apr, [facility] [address] [id number] [address] [place] [address], [place] [address] Apr, [facility] [address] [id number] [address] [place] [address], [place] [address] Apr, [facility] [address] [id number] [address] [place] [address], [place] [address] Apr, [facility] [address] [id number] [address] [place] [address], [place] [address] Apr, [facility] [address] [id number] [address] [place] [address], [place] [address] Apr, [facility] [address] [id number] [address] [place] [address], [place] [address] 18 May, 2012 [facility] [address] [id number] [address] [place] [address], [place] [address] 18 May, 2012 [facility] [address] [id number] [address] [place] [address], [place] [address] 15 May, 2012 [facility] [address] [id number] [address] [place] [address], [place] [address] 15 May, 2012 [facility] [address] [id number] [address] [place] [address], [place] [address] 13 May, 2012 [facility] [address] [id number] [address] [place] [address], [place] [address] 13 May, 2012 [facility] [address] [id number] [address] [place] [address], [place] [address] 13 Apr, 2012 [facility] [address] [id number] [address] [place] [address], [place] [address] 13 Apr, 2012 [facility] [address] [id number] [address] [place] [address], [place] [address] Apr, [facility] [address] [id number] [address] [place] [address], [place] [address] Apr, [facility] [address] [id number] [address] [place] [address], [place] [address] Apr, [facility] [address] [id number] [address] [place] [address], [place] [address] Apr, [facility] [address] [id number] [address] [place] [address], [place] [address] Apr, [facility] [address] [id number] [address] [place] [address], [place] [address] Apr, [facility] [address] [id number] [address] [place] [address], [place] [address] Apr, [facility] [address] [id number] [address] [place] [address], [place] [address] Apr, [facility] [address] [id number] [address] [place] [address], [place] [address] Mar, [facility] [address] [id number] [address] [place] [address], [place] [address] Mar, [facility] [address] [id number] [address] [place] [address], [place] [address] Mar, [facility] [address] [id number] [address] [place] [address], [place] [address] Mar, [facility] [address] [id number] [address] [place] [address], [place] [address] Mar, [facility] [address] [id number] [address] [place] [address], [place] [address] Mar, [facility] [address] [id number] [address] [place] [address], [place] [address] Mar, [facility] [address] [id number] [address] [place] [address], [place] [address] Mar, [facility] [address] [id number] [address] [place] [address], [place] [address] Mar, [facility] [address] [id number] [address] [place] [address], [place] [address] 25 Feb, 2012 [facility] [address] [id number] [address] [place] [address], [place] [address] 16 Feb, 2012 [facility] [address] [id number] [address] [place] [address], [place] [address] 11 Feb, 2012 [facility] [address] [id number] [address] [place] [address], [place] [address] Jan, [facility] [address] [id number] [address] [place] [address], [place] [address] Jan, [facility] [address] [id number] [address] [place] [address], [place] [address] Jan, [facility] [address] [id number] [address] [place] [address], [place] [address] Jan, [facility] [address] [id number] [address] [place] [address], [place] [address] Jan, [facility] [address] [id number] [address] [place] [address], [place] [address] Jan, [facility] [address] [id number] [address] [place] [address], [place] [address] 16 Jan, 2012 [facility] [address] [id number] [address] [place] [address], [place] [address] Jan, [facility] [address] [id number] [address] [place] [address], [place] [address] Jan, [facility] [address] [id number] [address] [place] [address], [place] [address] Jan, [facility] [address] [id number] [address] [place] [address], [place] [address] Dec, [facility] [address] [id number] [address] [place] [address], [place] [address] Dec, [facility] [address] [id number] [address] [place] [address], [place] [address] Dec, [facility] [address] [id number] [address] [place] [address], [place] [address] Dec, [facility] [address] [id number] [address] [place] [address], [place] [address] Nov, [facility] [address] [id number] [address] [place] [address], [place] [address] Nov, [facility] [address] [id number] [address] [place] [address] 07 Nov, 2011 [facility] [address] [id number] [address] [place] [address] October, [facility] [address] [id number] [address] [place] [address] October, [facility] [address] [id number] [address] [place] [address] October, [facility] [address] [id number] [address] [place] [address] October, [facility] [address] [id number] [address] [place] [address] October, [facility] [address] [id number] [address] [place] [address] October, [facility] [address] [id number] [address] [place] [address] Aug, [facility] [address] [id number] [address] [place] [address] Mar, [facility] [address] [id number] [address] [place] [address] Nov, [facility] [address] [id number] [address] [place] [address] May, [facility] [address] [id number] [address] [place] [address] May, [facility] [address] [id number] [address] [place] [address] Apr, [facility] [address] [id number] [address] [place] [address] Mar, [facility] [address] [id number] [address] [place] [address] Mar, IMMUNIZATIONS No Known Immunizations SOCIAL HISTORY Never Assessed REASON FOR VISIT BH f/u PLAN OF CARE Activity Details Follow Up 1 Week Reason:BH F/U VITAL SIGNS MEDICATIONS Unknown Medications RESULTS No Results PROCEDURES Procedure Date Ordered Result Body Site [facility] VIS[facility] ESTAB PT May 24, 2017 Psychotherapy, patient &/family, 45 minutes, established patient May 24, 2017 INSTRUCTIONS MEDICATIONS ADMINISTERED No Known [...]
--- OUTSIDE RECORDS SUMMARY | 2019-06-19 06:00 | XMS REPORT ---
Author Author Sydnie MORTON Organization [facility] Address [address] [place] [address] Care Team Providers Care Surgical Product Sales Consultant Name Role Phone JOHN MORTON Unavailable PROBLEMS Type Condition ICD9-CM Code VZK72-PT Code Onset Dates Condition S tatus SNOMED Code Problem Hormone replacement therapy Z79.890 Ac tive 718055470 Problem Abnormal CT scan, head R93.0 Active 705501639 Problem Hot flashes due to menopause N95.1 A ctive 844858313 Problem Sensorineural hearing loss (SNHL) of both ears H90 .3 Active 844488515 Problem History of colon polyps Z86.010 Active 461999325 Problem Bruising, spontaneous R23.3 Active 952938149 Problem Generalized anxiety disorder F41.1 A ctive 43077139 Problem Hammer toe of right foot M20.41 Activ e 561282249 Problem Hematuria, unspecified type R31.9 Ac tive 42838795 Problem Plantar wart of right foot B07.0 Act mitchell [id number] Problem Acute left-sided low back pain with left-sided sciatica M54.42 Active 319122104 Problem Hypertension I10 Active 3666660 3 Problem Arthralgia of hip, unspecified laterality M25.559 Active 34844074 Problem Night sweats R61 Active 4718016 0 Problem Major depressive disorder, recurrent episode, moderate F33.1 Active 731117479 Problem Imbalance R26.89 Active 926366517 Problem Bladder spasm N32.89 Active 733567 006 Problem Fibromyalgia M79.7 Active 0421796 7 Problem Other chronic pain G89.29 Active 8 0800884 Problem Gastritis without bleeding, unspecified chronicity, unspecified gastritis type K29.70 Active 123087957 Problem Hyperlipidemia, unspecified hyperlipidemia type E7 8.5 Active 80223096 Problem Grief F43.20 Active 81397286 Problem Ataxia R27.0 Active 95802008 Problem Allergic rhinitis J30.9 Active 61 006477 Problem Bipolar 1 disorder, mixed F31.60 Acti ve 73221562 Problem Hearing loss, unspecified laterality H91.90 Active 84353801 ALLERGIES No Information ENCOUNTERS Encounter Location Date Diagnosis [facility] [address] [facility] [id number] [address] [place] [address] Sep, [facility] [address] [place] [id number] [address] [place] [address] Sep, [facility] [address] [facility] [id number] [address] [place] [address] Sep, [facility] [address] [address] Sep, [facility] [address] [place] [id number] [address] [place] [address] Aug, [facility] [address] [place] [id number] [place] [address] Aug, Bipolar 1 disorder, mixed F3 1.60 [facility] [address] [place] [id number] [address] [place] [address] Aug, Bipolar 1 disorder, mixed F3 1.60 [facility] [address] [place] [id number] [address] [place] [address] Aug, [facility] [address] [place] [id number] [address] [place] [address] Aug, Generalized anxiety disorder F41.1 [facility] [address] [place] [id number] [address] [place] [address] Aug, Bipolar 1 disorder, mixed F3 1.60 [facility] [address] [place] [id number] [address] [place] [address] Aug, Plantar wart of right foot B 07.0 [facility] [address] [place] [id number] [address] [place] [address] Aug, Bipolar 1 disorder, mixed F3 1.60 [facility] [address] [place] [id number] [address] [place] [address] Jul, Bipolar 1 disorder, mixed F3 1.60 [facility] [address] [facility] [id number] [address] [place] [address] 19 Jul, 2017 [facility] [address] [facility] [id number] [address] [place] [address] 14 Jul, 2017 Bipolar 1 disorder, mixed F3 1.60 [facility] [address] [facility] [id number] [address] [place] [address] 09 Jul, 2017 Generalized anxiety disorder F41.1 [facility] [address] [facility] [id number] [address] [place] [address] 07 Jul, 2017 Bipolar 1 disorder, mixed F3 1.60 [facility] [address] [place] [id number] [address] [place] [address] 07 Jul, 2017 Acute left-sided low back pa in with left-sided sciatica M54.42 [facility] [address] [place] [id number] [address] [place] [address] 05 Jul, 2017 Coccydynia M53.3 [facility] [address] [place] [id number] [address] [place] [address] Jun, Bipolar 1 disorder, mixed F3 1.60 [facility] [address] [facility] [id number] [address] [place] [address] Jun, Acute nasopharyngitis J00 [facility] [address] [facility] [id number] [address] [place] [address] Jun, Bipolar 1 disorder, mixed F3 1.60 [facility] [address] [facility] [id number] [address] [place] [address] Jun, Fibromyalgia M79.7 [facility] [address] [facility] [id number] [address] [place] [address] 08 Jun, 2017 Bipolar 1 disorder, mixed F3 1.60 [facility] [address] [place] [id number] [address] [place] [address] Jun, Fibromyalgia M79.7 and Bipol ar 1 disorder, mixed F31.60 [place] [address] [place] [address] May, Bipolar 1 disorder, mixed F3 1.60 ; Generalized anxiety disorder F41.1 and 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 (current) drug therapy Z79.899 [place] [address] [address] May, Bipolar 1 disorder, mixed F3 1.60 [facility] [address] [address] 14 May, 2017 Cough R05 and Body aches R52 [facility] [place] [address] [address] 10 May, 2017 Bladder spasm N32.89 and Acu te cystitis without hematuria N30.00 [place] [address] [address] May, Bipolar 1 disorder, mixed F3 1.60 [place] [address] [address] Apr, [place] [address] [address] Apr, Major depressive disorder, r ecurrent episode, moderate F33.1 and Encounter for immunization Z23 [place] [address] [address] Apr, Bipolar 1 disorder, mixed F3 1.60 [place] [address] [address] Apr, Bipolar 1 disorder, mixed F3 1.60 [place] [address] [address] 16 Apr, 2017 Bipolar 1 disorder, mixed F3 1.60 [place] [address] [address] Apr, Yeast vaginitis B37.3 [facility] [address] [facility] [id number] [address] [place] [address] Apr, Bipolar 1 disorder, mixed F3 1.60 [facility] [address] [facility] [id number] [address] [place] [address] Apr, Encounter for immunization Z 23 and Cellulitis L03.90 [facility] [address] [facility] [id number] [address] [place] [address] Apr, Bipolar 1 disorder, mixed F3 1.60 [facility] [address] [facility] [id number] [address] [place] [address] Mar, Bipolar 1 disorder, mixed F3 1.60 [place] [address] [place] [id number] [address] [place] [address] Mar, Bipolar 1 disorder, mixed F3 1.60 [facility] [address] [place] [address] Mar, Imbalance R26.89 and Encount er for immunization Z23 [facility] [address] [facility] [id number] [address] [place] [address] Mar, Generalized anxiety disorder F41.1 [place] [address] [place] [id number] [address] [place] [address] Mar, Bipolar 1 disorder, mixed F3 1.60 [facility] [address] [place] [id number] [address] [place] [address] Mar, Generalized anxiety disorder F41.1 [facility] [address] [place] [id number] [address] [place] [address] Mar, Bipolar 1 disorder, mixed F3 1.60 [facility] [address] [place] [id number] [address] [place] [address] Mar, Bipolar 1 disorder, mixed F3 1.60 [facility] [address] [place] [id number] [address] [place] [address] Feb, Bipolar 1 disorder, mixed F3 1.60 [facility] [address] [place] [id number] [address] [place] [address] 25 Feb, 2017 Bipolar 1 disorder, mixed F3 1.60 and Generalized anxiety disorder F41.1 [facility] [address] [facility] [id number] [address] [place] [address] 21 Feb, 2017 Gastritis without bleeding, unspecified chronicity, unspecified gastritis type K29.70 ; Hammer toe of right foot M20.41 and Other viral warts B07.8 [place] [address] [place] [id number] [address] [place] [address] 20 Feb, 2017 Bipolar 1 disorder, mixed F3 1.60 [place] [address] [place] [id number] [address] [place] [address] 13 Feb, 2017 Bipolar 1 disorder, mixed F3 1.60 [place] [address] [place] [id number] [place] [address] 05 Feb, 2017 Bipolar 1 disorder, mixed F3 1.60 [place] [address] [place] [id number] [address] [place] [address] Jan, Encounter for screening mamm ogram for breast cancer Z12.31 ; Other viral warts B07.8 and Allergic rhinitis J30.9 [place] [address] [place] [id number] [address] [place] [address] Jan, Bipolar 1 disorder, mixed F3 1.60 [place] [address] [place] [id number] [address] [place] [address] Jan, Bipolar 1 disorder, mixed F3 1.60 [place] [address] [place] [id number] [address] [place] [address] Jan, [place] [address] [place] [id number] [address] [place] [address] Jan, Bipolar 1 disorder, mixed F3 1.60 [place] [address] [place] [id number] [address] [place] [address] Jan, Bipolar 1 disorder, mixed F3 1.60 [place] [id number] [place] [id number] [address] [place] [address] Jan, Allergic rhinitis J30.9 ; He maturia R31.9 and Colon cancer screening Z12.11 [place] [address] [place] [id number] [address] [place] [address] Dec, Bipolar 1 disorder, mixed F3 1.60 [place] [address] [place] [id number] [address] [place] [address] Dec, Bipolar 1 disorder, mixed F3 1.60 ; Generalized anxiety disorder F41.1 and 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 (current) drug therapy Z79.899 [place] [address] [place] [id number] [address] [place] [address] Dec, Bipolar 1 disorder, mixed F3 1.60 [place] [address] [address] Dec, Bipolar 1 disorder, mixed F3 1.60 [place] [address] [place] [address] Dec, Bipolar 1 disorder, mixed F3 1.60 [place] [address] [address] Dec, Low back pain M54.5 and Recu rrent urinary tract infection N39.0 [place] [address] [place] [id number] [address] [place] [address] Nov, Bipolar 1 disorder, mixed F3 1.60 [place] [address] [place] [id number] [address] [place] [address] Nov, Bipolar 1 disorder, mixed F3 1.60 [place] [address] [place] [id number] [address] [place] [address] Nov, Bipolar 1 disorder, mixed F3 1.60 [place] [address] [place] [id number] [address] [place] [address] Nov, Bipolar 1 disorder, mixed F3 1.60 [place] [address] [place] [address] Nov, [place] [address] [address] Nov, Anesthesia of skin R20.0 ; F requent UTI N39.0 ; Tobacco abuse Z72.0 and Colon cancer screening Z12.11 [place] [address] [place] [id number] [address] [place] [address] Nov, Bipolar 1 disorder, mixed F3 1.60 [place] [address] [address] October, Bipolar 1 disorder, mixed F3 1.60 [place] [address] [address] October, Bipolar 1 disorder, mixed F3 1.60 [place] [address] [address] October, Bipolar 1 disorder, mixed F3 1.60 [place] [address] [address] October, Bipolar 1 disorder, mixed F3 1.60 [place] [address] [address] October, Bipolar 1 disorder, mixed F3 1.60 [place] [address] [address] October, Cervicalgia M54.2 and Bipola r 1 disorder, mixed F31.60 [place] [address] [place] [id number] [address] [place] [address] October, Hypertension I10 ; Hyperlipi demia, unspecified hyperlipidemia type E78.5 and Family history of thyroid disease Z83.49 [place] [address] [address] October, [place] [address] [address] October, Hypertension I10 ; Hyperlipi demia, unspecified hyperlipidemia type E78.5 and Family history of thyroid problem Z83.49 [place] [address] [place] [address] October, Bipolar 1 disorder, mixed F3 1.60 [place] [address] [address] Sep, Bipolar 1 disorder, mixed F3 1.60 [place] [address] [address] Sep, Bipolar 1 disorder, mixed F3 1.60 [place] [address] [address] Sep, Bipolar 1 disorder, mixed F3 1.60 [place] [address] [address] Sep, History of colon polyps Z86. 010 and Hematochezia K92.1 [place] [address] [address] Sep, Major depressive disorder, r ecurrent episode, moderate F33.1 [place] [address] [address] Sep, Bipolar 1 disorder, mixed F3 1.60 [place] [address] [address] Aug, Hot flashes due to menopause N95.1 [place] [address] [place] [id number] [address] [place] [address] Aug, Bipolar 1 disorder, mixed F3 1.60 [place] [address] [address] Aug, [place] [address] [address] Aug, Bipolar 1 disorder, mixed F3 1.60 [place] [address] [address] Aug, Bipolar 1 disorder, mixed F3 1.60 [place] [address] Aug, Hot flashes due to menopause N95.1 ; Cervicalgia M54.2 and Ataxia R27.0 [place] [address] [place] [address] Jul, Bipolar 1 disorder, mixed F3 1.60 [place] [address] Jul, Bipolar 1 disorder, mixed F3 1.60 [place] [address] Jul, Bipolar 1 disorder, mixed F3 1.60 [place] [address] Jul, Bipolar 1 disorder, mixed F3 1.60 [place] [address] [address] Jul, Bipolar 1 disorder, mixed F3 1.60 [place] [address] [address] Jul, Cervicalgia M54.2 ; Tremor R 25.1 ; Hearing abnormally acute, unspecified laterality H93.239 ; Alopecia L65.9 ; Encounter for immunization Z23 and Family history of thyroid disease Z83.49 [place] [address] [address] Jul, Bipolar 1 disorder, mixed F3 1.60 [place] [address] [place] [address] Jun, [place] [address] [address] Jun, Hearing disorder, unspecifie d laterality H93.299 [facility] [address] [facility] [id number] [address] [place] [address] Jun, Bipolar 1 disorder, mixed F3 1.60 [facility] [address] [facility] [id number] [address] [place] [address] Jun, Bipolar 1 disorder, mixed F3 1.60 [facility] [address] [facility] [id number] [address] [place] [address] Jun, Allergic rhinitis J30.9 [facility] [address] [facility] [id number] [address] [place] [address] Jun, Bipolar 1 disorder, mixed F3 1.60 [facility] [address] [facility] [id number] [address] [place] [address] Jun, Bipolar 1 disorder, mixed F3 1.60 [facility] [address] [facility] [id number] [address] [place] [address] Jun, Allergic rhinitis J30.9 [facility] [address] [facility] [id number] [address] [place] [address] Jun, Allergic rhinitis J30.9 [facility] [address] [facility] [id number] [address] [place] [address] Jun, Bipolar 1 disorder, mixed F3 1.60 [facility] [address] [facility] [id number] [address] [place] [address] May, Bipolar 1 disorder, mixed F3 1.60 [facility] [address] [facility] [id number] [address] [place] [address] May, Bipolar 1 disorder, mixed F3 1.60 [facility] [address] [facility] [id number] [address] [place] [address] May, [facility] [address] [facility] [id number] [address] [place] [address] May, Bipolar 1 disorder, mixed F3 1.60 [facility] [address] [facility] [id number] [address] [place] [address] May, Bipolar 1 disorder, mixed F3 1.60 [facility] [address] [facility] [id number] [address] [place] [address] May, [facility] [address] [facility] [id number] [address] [place] [address] May, [facility] [address] [facility] [id number] [address] [place] [address] May, [facility] [address] [facility] [id number] [address] [place] [address] May, Abdominal pain, unspecified location R10.9 [facility] [address] [facility] [id number] [place] [address] May, [facility] [address] [place] [id number] [address] [place] [address] Apr, Hematuria R31.9 ; Ataxia R27 .0 and Hearing loss, unspecified laterality H91.90 [facility] [address] [facility] [id number] [address] [place] [address] Apr, Bipolar 1 disorder, mixed F3 1.60 [facility] [address] [facility] [id number] [address] [place] [address] Apr, Acute effusion of both middl e ears H65.193 [facility] [address] [facility] [id number] [address] [place] [address] Apr, Hematuria R31.9 and Pyelonep hritis N12 [facility] [address] [facility] [id number] [address] [place] [address] Apr, [facility] [address] [facility] [id number] [address] [place] [address] Mar, Bipolar 1 disorder, mixed F3 1.60 [facility] [address] [facility] [id number] [address] [place] [address] Mar, [facility] [address] [facility] [id number] [address] [place], [place] [address] Mar, Bipolar 1 disorder, mixed F3 1.60 [place] [address] [place] [id number] [address] [place], [place] [address] Mar, Bipolar 1 disorder, mixed F3 1.60 [place] [address] [place] [id number] [address] [place], [place] [address] Mar, Encounter for immunization Z 23 and Gastritis without bleeding, unspecified chronicity, unspecified gastritis type K29.70 [place] [address] [place] [id number] [address] [place], [place] [address] Mar, Bipolar 1 disorder, mixed F3 1.60 and Grief F43.20 [place] [address] [place] [id number] [address] [place], [place] [address] Mar, Gastritis without bleeding, unspecified chronicity, unspecified gastritis type K29.70 [place] [address] [place] [address] Mar, Bipolar 1 disorder, mixed F3 1.60 [place] [address] [place] [id number] [address] [place] [address] Mar, Gastritis without bleeding, unspecified chronicity, unspecified gastritis type K29.70 [place] [address] [place] [id number] [address] [place], [place] [address] Mar, [place] [address] [place] [id number] [address] [place], [place] [address] Feb, Bipolar 1 disorder, mixed F3 1.60 [place] [address] [place] [id number] [address] [place], [place] [address] Feb, Bipolar 1 disorder, mixed F3 1.60 and Grief F43.20 [place] [address] [place] [id number] [address] [place], [place] [address] Feb, Gastritis without bleeding, unspecified chronicity, unspecified gastritis type K29.70 [place] [address] [place] [id number] [address] [place], [place] [address] Feb, Bipolar 1 disorder, mixed F3 1.60 [facility] [address] [facility] [id number] [address] [place] [id number] Feb, Gastroesophageal reflux dise ase, esophagitis presence not specified K21.9 [facility] [address] [facility] [id number] [address] [place] [id number] Jan, Bipolar 1 disorder, mixed F3 1.60 [facility] [address] [facility] [id number] [address] [place] [id number] Jan, Bipolar 1 disorder, mixed F3 1.60 and Unsteady gait R26.81 [facility] [address] [facility] [id number] [address] [place], [place] [id number] Jan, Bipolar 1 disorder, mixed F3 1.60 [facility] [address] [place] [id number] [address] [place] [id number] Jan, Bipolar 1 disorder, mixed F3 1.60 and 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 (current) drug therapy Z79.899 [facility] [address] [facility] [id number] [address] [place] [id number] Jan, Bipolar 1 disorder, mixed F3 1.60 [facility] [address] [facility] [id number] [address] [place] [id number] Jan, Bipolar 1 disorder, mixed F3 1.60 [facility] [address] [facility] [id number] [address] [place] [id number] Jan, Bipolar 1 disorder, mixed F3 1.60 ; Grief F43.20 and 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 (current) drug therapy Z79.899 [facility] [address] [facility] [id number] [address] [place] [id number] Jan, Bipolar 1 disorder, mixed F3 1.60 [facility] [address] [facility] [id number] [address] [place] [id number] Dec, [facility] [address] [facility] [id number] [address] [place] [id number] Dec, Bipolar 1 disorder, mixed F3 1.60 ; Vitamin D deficiency, unspecified E55.9 ; H/O allergic rhinitis Z87.09 ; Other chronic pain G89.29 and Dorsalgia, unspecified M54.9 [facility] [address] [facility] [id number] [address] [place] [id number] Dec, [facility] [address] [place] [id number] [address] [place] [id number] Dec, Bipolar 1 disorder, mixed F3 1.60 [facility] [address] [facility] [id number] [address] [place] [phone] Dec, Major depressive disorder, r ecurrent episode, moderate F33.1 [place] [address] [place] [id number] [address] [place] [id number] Dec, Major depressive disorder, r ecurrent episode, moderate F33.1 [place] [id number] [place] [id number] Nov, [facility] [address] [place] [id number] [address] [place] [id number] Nov, Bipolar 1 disorder, mixed F3 1.60 [place] [address] [place] [id number] [address] [place] [id number] Nov, Major depressive disorder, r ecurrent episode, moderate F33.1 [place] [address] [place] [id number] [address] [place] [id number] Nov, Cervicalgia M54.2 ; Arthralg ia of hip, unspecified laterality M25.559 ; Allergic rhinitis J30.9 and Hormone replacement therapy Z79.890 [facility] [address] [facility] [id number] [address] [place] [address] Nov, Other seasonal allergic rhin itis J30.2 [facility] [address] [facility] [id number] [address] [place] [address] October, Major depressive disorder, r ecurrent episode, moderate F33.1 [facility] [address] [place] [id number] [address] [place] [address] October, Major depressive disorder, r ecurrent episode, moderate F33.1 and Arthralgia of hip, unspecified laterality M25.559 [place] [address] [place] [id number] [address] [place] [address] October, Grief F43.20 ; Hypertension I10 ; Hyperlipidemia, unspecified hyperlipidemia type E78.5 ; Other chronic pain G89.29 and Allergic rhinitis, unspecified allergic rhinitis type J30.9 [place] [address] [place] [id number] [address] [place] [address] October, Major depressive disorder, r ecurrent episode, moderate F33.1 [place] [address] [place] [id number] [address] [place] [address] Sep, Major depressive disorder, r ecurrent episode, moderate F33.1 [place] [address] [place] [id number] [address] [place] [address] Sep, [place] [address] [place] [address] Sep, Major depressive disorder, r ecurrent episode, moderate F33.1 [place] [address] [place] [id number] [address] [place] [address] Sep, Grief F43.20 [place] [address] [place] [address] Aug, Major depressive disorder, r ecurrent episode, moderate F33.1 [place] [address] [place] [address] Aug, Bipolar 1 disorder, mixed F3 1.60 [place] [address] [place] [id number] [address] [place] [address] Aug, Allergic rhinitis J30.9 ; Ce rvicalgia M54.2 and Low back pain M54.5 [place] [address] [place] [id number] [address] [place] [address] Aug, Major depressive disorder, r ecurrent episode, moderate F33.1 [facility] [address] [facility] [id number] [address] [place] [address] Aug, Sinusitis J32.9 and Tobacco 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 [facility] [address] [facility] [id number] [address] [place] [address] Aug, [facility] [address] [place] [id number] [address] [place] [address] Aug, Depressive disorder, not els ewhere classified F32.9 ; Hormone replacement therapy Z79.[address] scan, head R93.0 [facility] [address] [place] [id number] [address] [place] [address] Aug, Major depressive disorder, r ecurrent episode, moderate F33.1 [facility] [address] [place] [id number] [address] [place] [address] Jul, Major depressive disorder, r ecurrent episode, moderate F33.1 [facility] [address] [place] [id number] [address] [place] [address] Jul, Abdominal pain R10.9 and Hyp ertension I10 [facility] [address] [facility] [id number] [address] [place] [address] Jul, [facility] [address] [place] [id number] [address] [place] [address] Jul, Major depressive disorder, r ecurrent episode, moderate F33.1 [facility] [address] [facility] [id number] [address] [place] [address] Jul, [facility] [address] [facility] [id number] [address] [place] [address] Jul, [facility] [address] [facility] [id number] [address] [place] [address] Jun, [facility] [address] [place] [id number] [address] [place] [address] Jun, Depressive disorder, not els ewhere classified F32.9 [facility] [address] [id number] [address] [place] [address] Jun, [facility] [address] [id number] [address] [place] [address] Jun, [facility] [address] [id number] [address] [place] [address] Jun, Arthralgia of hip, unspecifi ed laterality M25.559 ; Bruising, spontaneous R23.3 and Night sweats R61 [facility] [address] [id number] [address] [place] [address] Jun, [facility] [address] [facility] [id number] [address] [place] [address] Jun, [facility] [address] [place] [id number] [address] [place] [address] May, [facility] [address] [facility] [id number] [address] [place] [address] May, Myalgia M79.1 and Screening, lipid Z13.220 [facility] [address] [facility] [id number] [address] [place] [address] Apr, Status post cervical spinal fusion Z98.1 ; Fibromyalgia M79.7 and Unsteady gait R26.81 [facility] [address] [id number] [address] [place] [address] Nov, [facility] [address] [id number] [address] [place] [address] Nov, [facility] [address] [facility] [id number] [address] [place] [address] October, [facility] [address] [facility] [id number] [address] [place] [address] October, [facility] [address] [facility] [id number] [address] [place] [address] October, [facility] [address] [id number] [address] [place] [address], [place] [address] October, [facility] [address] [id number] [address] [place] [address] October, [facility] [address] [id number] [address] [place] [address] October, Dysuria 788.1 ; Nausea 787.0 2 and Urinary tract infection 599.0 [facility] [address] [id number] [address] [place] [address], [place] [address] Sep, [facility] [address] [id number] [address] [place] [address] Sep, [facility] [address] [id number] [address] [place] [address] Aug, [facility] [address] [id number] [address] [place] [address] Aug, [facility] [address] [id number] [address] [place] [address] Aug, [facility] [address] [id number] [address] [place] [address] Aug, [facility] [address] [id number] [address] [place] [address] Aug, [facility] [address] [id number] [address] [place] [address] Aug, [facility] [address] [id number] [address] [place] [address] Aug, [facility] [address] [id number] [address] [place] [address] Aug, [facility] [address] [id number] [address] [place] [address] Aug, [facility] [address] [id number] [address] [place] [address] 18 Aug, 2014 [facility] [address] [id number] [address] [place] [address], [place] [address] 18 Aug, 2014 [facility] [address] [id number] [address] [place] [address], [place] [address] Aug, [facility] [address] [id number] [address] [place] [address], [place] [address] Aug, [facility] [address] [id number] [address] [place] [address], [place] [address] Aug, [facility] [address] [id number] [address] [place] [address], [place] [address] Aug, [facility] [address] [id number] [address] [place] [address], [place] [address] Aug, [facility] [address] [id number] [address] [place] [address], [place] [address] Aug, [facility] [address] [id number] [address] [place] [address], [place] [address] 05 Aug, 2014 [facility] [address] [id number] [address] [place] [address], [place] [address] 05 Aug, 2014 [facility] [address] [id number] [address] [place] [address], [place] [address] Aug, [facility] [address] [id number] [address] [place] [address], [place] [address] Aug, [facility] [address] [id number] [address] [place] [address], [place] [address] Aug, [facility] [address] [id number] [address] [place] [address], [place] [address] Jul, [facility] [address] [id number] [address] [place] [address], [place] [address] Jul, [facility] [address] [id number] [address] [place] [address], [place] [address] Jul, [facility] [address] [id number] [address] [place] [address], [place] [address] Jul, 2014 [facility] [address] [id number] [address] [place] [address], [place] [address] Jul, 2014 [facility] [address] [id number] [address] [place] [address], [place] [address] Jul, 2014 [facility] [address] [id number] [address] [place] [address], [place] [address] Jul, 2014 [facility] [address] [id number] [address] [place] [address], [place] [address] Jul, 2014 [facility] [address] [id number] [address] [place] [address], [place] [address] Jul, 2014 [facility] [address] [id number] [address] [place] [address], [place] [address] Jul, 2014 [facility] [address] [id number] [address] [place] [address], [place] [address] Jul, 2014 [facility] [address] [id number] [address] [place] [address], [place] [address] Jul, [facility] [address] [id number] [address] [place] [address] Jul, [facility] [address] [id number] [address] [place] [address] Jul, [facility] [address] [id number] [address] [place] [address] Jun, [facility] [address] [id number] [address] [place] [address] Jun, [facility] [address] [id number] [address] [place] [address] Jun, [facility] [address] [id number] [address] [place] [address] Jun, [facility] [address] [id number] [address] [place] [address] Jun, [facility] [address] [id number] [address] [place] [address], [place] [address] Jun, [facility] [address] [id number] [address] [place] [address], [place] [address] May, [facility] [address] [id number] [address] [place] [address], [place] [address] May, [facility] [address] [id number] [address] [place] [address], [place] [address] May, [facility] [address] [id number] [address] [place] [address], [place] [address] May, [facility] [address] [id number] [address] [place] [address], [place] [address] May, [facility] [address] [id number] [address] [place] [address], [place] [address] May, [facility] [address] [id number] [address] [place] [address], [place] [address] Apr, [facility] [address] [id number] [address] [place] [address], [place] [address] Apr, [facility] [address] [id number] [address] [place] [address], [place] [address] Apr, [facility] [address] [id number] [address] [place] [address], [place] [address] Apr, [facility] [address] [id number] [address] [place] [address], [place] [address] Apr, [facility] [address] [id number] [address] [place] [address], [place] [address] Apr, [facility] [address] [id number] [address] [place] [address], [place] [address] Mar, [facility] [address] [id number] [address] [place] [address], [place] [address] Mar, [facility] [address] [id number] [address] [place] [address], [place] [address] 09 Mar, 2013 [facility] [address] [id number] [address] [place] [address], [place] [address] Mar, 2013 [facility] [address] [id number] [address] [place] [address], [place] [address] Mar, 2013 [facility] [address] [id number] [address] [place] [address], [place] [address] Mar, 2013 [facility] [address] [id number] [address] [place] [address], [place] [address] Mar, 2013 [facility] [address] [id number] [address] [place] [address], [place] [address] Mar, 2013 [facility] [address] [id number] [address] [place] [address], [place] [address] Mar, 2013 [facility] [address] [id number] [address] [place] [address], [place] [address] Mar, 2013 [facility] [address] [id number] [address] [place] [address], [place] [address] Mar, [facility] [address] [id number] [address] [place] [address], [place] [address] Mar, [facility] [address] [id number] [address] [place] [address], [place] [address] 30 Feb, 2013 [facility] [address] [id number] [address] [place] [address], [place] [address] 29 Sep, 2013 [facility] [address] [id number] [address] [place] [address], [place] [address] 29 Sep, 2013 [facility] [address] [id number] [address] [place] [address], [place] [address] 23 Sep, 2013 [facility] [address] [id number] [address] [place] [address], [place] [address] 23 Sep, 2013 [facility] [address] [id number] [address] [place] [address], [place] [address] Feb, [facility] [address] [id number] [facility] [place] [address] Feb, [facility] [address] [id number] [address] [place] [address], [place] [address] Jan, [facility] [address] [id number] [address] [place] [address], [place] [address] Jan, [facility] [address] [id number] [address] [place] [address], [place] [address] Jan, [facility] [address] [id number] [address] [place] [address], [place] [address] Dec, [facility] [address] [id number] [address] [place] [address], [place] [address] Dec, [facility] [address] [id number] [address] [place] [address], [place] [address] Dec, [facility] [address] [id number] [address] [place] [address], [place] [address] Dec, [facility] [address] [id number] [address] [place] [address], [place] [address] Sep, [facility] [address] [id number] [address] [place] [address], [place] [address] Sep, [facility] [address] [id number] [address] [place] [address], [place] [address] Sep, [facility] [address] [id number] [address] [place] [address], [place] [address] Sep, [facility] [address] [id number] [address] [place] [address], [place] [address] Sep, [facility] [address] [id number] [address] [place] [address], [place] [address] Sep, [facility] [address] [id number] [address] [place] [address], [place] [address] Sep, [facility] [address] [id number] [address] [place] [address], [place] [address] Sep, [facility] [address] [id number] [address] [place] [address], [place] [address] Aug, [facility] [address] [id number] [address] [place] [address], [place] [address] Aug, [facility] [address] [id number] [address] [place] [address], [place] [address] May, [facility] [address] [id number] [address] [place] [address], [place] [address] May, [facility] [address] [id number] [address] [place] [address], [place] [address] Apr, [facility] [address] [id number] [address] [place] [address], [place] [address] Apr, [facility] [address] [id number] [address] [place] [address], [place] [address] Apr, [facility] [address] [id number] [address] [place] [address], [place] [address] Apr, [facility] [address] [id number] [address] [place] [address], [place] [address] Apr, [facility] [address] [id number] [address] [place] [address], [place] [address] Apr, [facility] [address] [id number] [address] [place] [address], [place] [address] May, [facility] [address] [id number] [address] [place] [address], [place] [address] 18 May, 2012 [facility] [address] [id number] [address] [place] [address], [place] [address] 15 May, 2012 [facility] [address] [id number] [address] [place] [address], [place] [address] 15 May, 2012 [facility] [address] [id number] [address] [place] [address], [place] [address] 13 May, 2012 [facility] [address] [id number] [address] [place] [address], [place] [address] May, [facility] [address] [id number] [address] [place] [address], [place] [address] Apr, [facility] [address] [id number] [address] [place] [address], [place] [address] Apr, [facility] [address] [id number] [address] [place] [address], [place] [address] Apr, [facility] [address] [id number] [address] [place] [address], [place] [address] Apr, [facility] [address] [id number] [address] [place] [address], [place] [address] Apr, [facility] [address] [id number] [address] [place] [address], [place] [address] Apr, [facility] [address] [id number] [address] [place] [address], [place] [address] Apr, [facility] [address] [id number] [address] [place] [address], [place] [address] Apr, [facility] [address] [id number] [address] [place] [address], [place] [address] Apr, [facility] [address] [id number] [address] [place] [address], [place] [address] Apr, [facility] [address] [id number] [address] [place] [address], [place] [address] Mar, [facility] [address] [id number] [address] [place] [address], [place] [address] Mar, [facility] [address] [id number] [address] [place] [address], [place] [address] Mar, [facility] [address] [id number] [address] [place] [address], [place] [address] Mar, [facility] [address] [id number] [address] [place] [address], [place] [address] Mar, [facility] [address] [id number] [address] [place] [address], [place] [address] Mar, [facility] [address] [id number] [address] [place] [address], [place] [address] Mar, [facility] [address] [id number] [address] [place] [address], [place] [address] Mar, [facility] [address] [id number] [address] [place] [address], [place] [address] Mar, [facility] [address] [id number] [address] [place] [address], [place] [address] Feb, [facility] [address] [id number] [address] [place] [address], [place] [address] 16 Feb, 2012 [facility] [address] [id number] [address] [place] [address], [place] [address] Feb, [facility] [address] [id number] [address] [place] [address], [place] [address] Jan, [facility] [address] [id number] [address] [place] [address], [place] [address] Jan, [facility] [address] [id number] [address] [place] [address], [place] [address] Jan, [facility] [address] [id number] [address] [place] [address], [place] [address] Jan, [facility] [address] [id number] [address] [place] [address], [place] [address] Jan, [facility] [address] [id number] [address] [place] [address], [place] [address] Jan, [facility] [address] [id number] [address] [place] [address], [place] [address] Jan, [facility] [address] [id number] [address] [place] [address], [place] [address] 15 Jan, 2012 [facility] [address] [id number] [address] [place] [address], [place] [address] Jan, [facility] [address] [id number] [address] [place] [address], [place] [address] Jan, [facility] [address] [id number] [address] [place] [address], [place] [address] Dec, [facility] [address] [id number] [address] [place] [address], [place] [address] Dec, [facility] [address] [id number] [address] [place] [address], [place] [address] Dec, [facility] [address] [id number] [address] [place] [address], [place] [address] Dec, [facility] [address] [id number] [address] [place] [address], [place] [address] Nov, [facility] [address] [id number] [address] [place] [address], [place] [address] Nov, [facility] [address] [id number] [address] [place] [address], [place] [address] Nov, [facility] [address] [id number] [address] [place] [address], [place] [address] October, [facility] [address] [id number] [address] [place] [address], [place] [address] October, [facility] [address] [id number] [address] [place] [address], [place] [address] October, [facility] [address] [id number] [address] [place] [address], [place] [address] October, [facility] [address] [id number] [address] [place] [address], [place] [address] October, [facility] [address] [id number] [address] [place] [address], [place] [address] October, [facility] [address] [id number] [address] [place] [address], [place] [address] Aug, [facility] [address] [id number] [address] [place] [address] Mar, [facility] [address] [id number] [address] [place] [address] Nov, [facility] [address] [id number] [address] [place] [address] May, [facility] [address] [facility] [id number] [address] [place] [address] May, [facility] [address] [facility] [id number] [address] [place] [address] Apr, [facility] [address] [facility] [id number] [address] [place], [place] [id number] Mar, [facility] [address] [facility] [id number] [address] [place] [id number] Mar, IMMUNIZATIONS No Known Immunizations SOCIAL HISTORY Never Assessed REASON FOR VISIT f/u PLAN OF CARE Activity Details Follow Up Next available Reason: F/U VITAL SIGNS MEDICATIONS Unknown Medications RESULTS No Results PROCEDURES Procedure Date Ordered Result Body Site Psychotherapy, patient &/family, 45 minutes, established pat john January 04, 2017 INSTRUCTIONS MEDICATIONS ADMINISTERED No Known [...]
--- OUTSIDE RECORDS SUMMARY | 2019-06-19 06:00 | XMS REPORT ---
Author Author Sydnie HANCOCK [facility] Address [address] [place] [address] Care Team Providers Care Window Clerk Name Role Phone NAHOMY HANCOCK Unavailable PROBLEMS Type Condition ICD9-CM Code [id number] Code Onset Dates Condition S tatus SNOMED Code Problem Hormone replacement therapy Z79.890 Ac tive 303759575 Problem Abnormal CT scan, head R93.0 Active 184322381 Problem Sensorineural hearing loss (SNHL) of both ears H90 .3 Active 437765241 Problem History of colon polyps Z86.010 Active 443306178 Problem Bruising, spontaneous R23.3 Active 013252175 Problem Generalized anxiety disorder F41.1 A ctive 22862459 Problem Arthralgia of hip, unspecified laterality M25.559 Active 28369131 Problem Hematuria, unspecified type R31.9 Ac tive 43342048 Problem Imbalance R26.89 Active 057561578 Problem Hammer toe of right foot M20.41 Activ e 324529868 Problem Plantar wart of right foot B07.0 Act mitchell [id number] Problem Sciatica of left side M54.32 Active 41308610 Problem Hyperlipidemia, unspecified hyperlipidemia type E7 8.5 Active 49668846 Problem Hypertension I10 Active 8770680 3 Problem Night sweats R61 Active 9327782 0 Problem Fibromyalgia M79.7 Active 9405620 7 Problem Major depressive disorder, recurrent episode, moderate F33.1 Active 205248777 Problem Acute left-sided low back pain with left-sided sciatica M54.42 Active 718097689 Problem Bladder spasm N32.89 Active 132363 006 Problem Gastritis without bleeding, unspecified chronicity, unspecified gastritis type K29.70 Active 404463181 Problem Bipolar 1 disorder, mixed F31.60 Acti ve 21141030 Problem Grief F43.20 Active 96992343 Problem Other chronic pain G89.29 Active 8 1495846 Problem Allergic rhinitis J30.9 Active 61 303202 Problem Hot flashes due to menopause N95.1 A ctive 420454807 Problem Ataxia R27.0 Active 34571864 Problem Hearing loss, unspecified laterality H91.90 Active 05644546 ALLERGIES Substance Reaction Event Type Date Status Morphine Sulfate Unknown Drug Allergy Apr, Active Iodine Unknown Drug Allergy Apr, Active Cipro burning stomach Drug Allergy Apr, Active Lyrica 75 Mg Capsule "felt weird" Non Drug Allergy Apr, Act mitchell ENCOUNTERS Encounter Location Date Diagnosis [facility] [address] [address] Dec, [facility] [address] [address] Nov, [facility] [address] [address] Nov, [facility] [address] [address] Nov, [facility] [address] [address] Nov, [facility] [address] [address] October, Bipolar 1 disorder, mixed F3 1.60 [facility] [address] [address] October, Acute nasopharyngitis J00 [facility] [address] [address] October, Bitten or stung by nonvenomo us insect and other nonvenomous arthropods, initial encounter W57.XXXA and Insect bite (nonvenomous) of abdominal wall, initial encounter S30.861A [facility] [address] [place] [id number] [address] [place] [address] October, Insect bite (nonvenomous) of abdominal wall, initial encounter S30.861A ; Bitten or stung by nonvenomous insect and other nonvenomous arthropods, initial encounter W57.XXXA ; Allergic rhinitis J30.9 and Low back pain M54.5 [facility] [address] [id number] [address] [place] [address] October, Bipolar 1 disorder, mixed F3 1.60 [facility] [address] [id number] [address] [place] [address] October, [facility] [address] [id number] [address] [place] [address] October, [facility] [address] [id number] [address] [place] [address] October, Bipolar 1 disorder, mixed F3 1.60 [facility] [address] [place] [id number] [place] [address] Sep, Bipolar 1 disorder, mixed F3 1.60 [facility] [address] [id number] [place] [address] Sep, Other chronic pain G89.29 [facility] [address] [id number] [place] [address] Sep, [facility] [address] [id number] [place] [address] Sep, Bipolar 1 disorder, mixed F3 1.60 [facility] [address] [id number] [place] [address] Sep, Allergic rhinitis J30.9 and Sciatica of left side M54.32 [facility] [address] [id number] [place] [address] Sep, Bipolar 1 disorder, mixed F3 1.60 [facility] [address] [id number] [place] [address] Sep, Bipolar 1 disorder, mixed F3 1.60 and Generalized anxiety disorder F41.1 [facility] [address] [id number] [place] [address] Aug, [facility] [address] [facility] [id number] [address] [place] [address] Aug, Bipolar 1 disorder, mixed F3 1.60 [facility] [address] [facility] [id number] [address] [place] [address] Aug, Bipolar 1 disorder, mixed F3 1.60 [facility] [address] [facility] [id number] [address] [place] [address] Aug, [facility] [address] [facility] [id number] [address] [place] [address] Aug, Generalized anxiety disorder F41.1 [facility] [address] [facility] [id number] [address] [place] [address] Aug, Bipolar 1 disorder, mixed F3 1.60 [facility] [address] [facility] [id number] [address] [place] [address] Aug, Plantar wart of right foot B 07.0 [facility] [address] [facility] [id number] [address] [place] [address] Aug, Bipolar 1 disorder, mixed F3 1.60 [facility] [address] [facility] [id number] [address] [place] [address] Jul, Bipolar 1 disorder, mixed F3 1.60 [facility] [address] [facility] [id number] [address] [place] [address] Jul, [facility] [address] [facility] [id number] [address] [place] [address] Jul, Bipolar 1 disorder, mixed F3 1.60 [facility] [address] [facility] [id number] [address] [place] [address] 09 Jul, 2017 Generalized anxiety disorder F41.1 [facility] [address] [facility] [id number] [address] [place] [address] 07 Jul, 2017 Bipolar 1 disorder, mixed F3 1.60 [facility] [address] [facility] [id number] [address] [place] [address] 07 Jul, 2017 Acute left-sided low back pa in with left-sided sciatica M54.42 [place] [address] [place] [id number] [place] [address] 05 Jul, 2017 Coccydynia M53.3 [place] [address] [place] [id number] [address] [place] [address] Jun, Bipolar 1 disorder, mixed F3 1.60 [facility] [address] [id number] [place] [address] Jun, Acute nasopharyngitis J00 [place] [address] [address] Jun, Bipolar 1 disorder, mixed F3 1.60 [place] [address] [address] Jun, Fibromyalgia M79.7 [place] [address] [address] Jun, Bipolar 1 disorder, mixed F3 1.60 [place] [address] [address] Jun, Fibromyalgia M79.7 and Bipol ar 1 disorder, mixed F31.60 [place] [address] [place] [address] May, Bipolar 1 disorder, mixed F3 1.60 ; Generalized anxiety disorder F41.1 and Other fci (current) drug therapy Z79.899 [place] [address] [place] [id number] [address] [place] [address] May, Bipolar 1 disorder, mixed F3 1.60 [facility] [address] [place] [id number] [address] [place] [address] 14 May, 2017 Cough R05 and Body aches R52 [facility] [address] [id number] [place] [address] May, Bladder spasm N32.89 and Acu te cystitis without hematuria N30.00 [facility] [address] [address] 07 May, 2017 Bipolar 1 disorder, mixed F3 1.60 [facility] [address] [address] 30 Apr, 2017 [place] [address] [place] [address] Apr, Major depressive disorder, r ecurrent episode, moderate F33.1 and Encounter for immunization Z23 [place] [address] [address] Apr, Bipolar 1 disorder, mixed F3 1.60 [place] [address] [address] Apr, Bipolar 1 disorder, mixed F3 1.60 [place] [address] [address] Apr, Bipolar 1 disorder, mixed F3 1.60 [place] [address] [address] Apr, Yeast vaginitis B37.3 [place] [address] [address] 09 Apr, 2017 Bipolar 1 disorder, mixed F3 1.60 [facility] [address] [address] 07 Apr, 2017 Cellulitis L03.[address] for immunization Z23 [place] [address] [address] Apr, Bipolar 1 disorder, mixed F3 1.60 [facility] [address] [address] Mar, Bipolar 1 disorder, mixed F3 1.60 [place] [address] [address] Mar, Bipolar 1 disorder, mixed F3 1.60 [place] [address] [address] Mar, Imbalance R26.89 [address] Encount er for immunization Z23 [place] [address] [place] [id number] [place] [address] Mar, Generalized anxiety disorder F41.1 [place] [address] Mar, Bipolar 1 disorder, mixed F3 1.60 [place] [address] [address] Mar, Generalized anxiety disorder F41.1 [place] [address] [place] [id number] [place] [address] Mar, Bipolar 1 disorder, mixed F3 1.60 [place] [address] [address] Mar, Bipolar 1 disorder, mixed F3 1.60 [place] [address] [address] Feb, Bipolar 1 disorder, mixed F3 1.60 [place] [address] [place] [id number] [place] [address] Feb, Bipolar 1 disorder, mixed F3 1.60 and Generalized anxiety disorder F41.1 [place] [address] [address] Feb, Gastritis without bleeding, unspecified chronicity, unspecified gastritis type K29.70 ; Hammer toe of right foot M20.41 and Other viral warts B07.8 [place] [address] [place] [id number] [place] [address] Feb, Bipolar 1 disorder, mixed F3 1.60 [place] [address] [place] [id number] [address] [place] [address] Feb, Bipolar 1 disorder, mixed F3 1.60 [facility] [address] [facility] [id number] [address] [place] [address] 05 Feb, 2017 Bipolar 1 disorder, mixed F3 1.60 [facility] [address] [place] [id number] [place] [address] Jan, Encounter for screening mamm ogram for breast cancer Z12.31 ; Other viral warts B07.8 and Allergic rhinitis J30.9 [place] [address] [facility] [id number] [address] [place] [address] Jan, Bipolar 1 disorder, mixed F3 1.60 [place] [address] [place] [id number] [place] [address] Jan, Bipolar 1 disorder, mixed F3 1.60 [place] [address] [place] [id number] [place] [address] Jan, [place] [address] [place] [id number] [place] [address] Jan, Bipolar 1 disorder, mixed F3 1.60 [place] [id number] [place] [id number] [place] [address] Jan, Bipolar 1 disorder, mixed F3 1.60 [place] [address] [place] [id number] [place] [address] Jan, Allergic rhinitis J30.9 ; He maturia R31.9 and Colon cancer screening Z12.11 [place] [address] [place] [id number] [place] [address] Dec, Bipolar 1 disorder, mixed F3 1.60 [place] [address] [place] [id number] [place] [address] 18 Dec, 2016 Bipolar 1 disorder, mixed F3 1.60 ; Generalized anxiety disorder F41.1 and Other fci (current) drug therapy Z79.899 [facility] [address] [id number] [place] [address] 17 Dec, 2016 Bipolar 1 disorder, mixed F3 1.60 [facility] [address] [id number] [address] [place] [address] Dec, Bipolar 1 disorder, mixed F3 1.60 [facility] [address] [facility] [id number] [address] [place] [address] Dec, Bipolar 1 disorder, mixed F3 1.60 [facility] [address] [facility] [id number] [address] [place] [address] Dec, Low back pain M54.5 and Recu rrent urinary tract infection N39.0 [facility] [address] [facility] [id number] [address] [place] [address] Nov, Bipolar 1 disorder, mixed F3 1.60 [facility] [address] [facility] [id number] [address] [place] [address] Nov, Bipolar 1 disorder, mixed F3 1.60 [facility] [address] [facility] [id number] [address] [place] [address] Nov, Bipolar 1 disorder, mixed F3 1.60 [facility] [address] [facility] [id number] [address] [place] [address] Nov, Bipolar 1 disorder, mixed F3 1.60 [facility] [address] [facility] [id number] [address] [place] [address] Nov, [facility] [address] [facility] [id number] [address] [place] [address] Nov, Anesthesia of skin R20.0 ; F requent UTI N39.0 ; Tobacco abuse Z72.0 and Colon cancer screening Z12.11 [facility] [address] [facility] [id number] [address] [place] [address] Nov, Bipolar 1 disorder, mixed F3 1.60 [facility] [address] [facility] [id number] [address] [place] [address] October, Bipolar 1 disorder, mixed F3 1.60 [facility] [address] [facility] [id number] [address] [place] [address] October, Bipolar 1 disorder, mixed F3 1.60 [facility] [address] [place] [id number] [place] [address] October, Bipolar 1 disorder, mixed F3 1.60 [facility] [address] [place] [id number] [place] [address] October, Bipolar 1 disorder, mixed F3 1.60 [place] [address] [place] [id number] [place] [address] October, Bipolar 1 disorder, mixed F3 1.60 [place] [address] [place] [id number] [place] [address] October, Cervicalgia M54.2 and Bipola r 1 disorder, mixed F31.60 [place] [address] [place] [id number] [place] [address] October, Hypertension I10 ; Hyperlipi demia, unspecified hyperlipidemia type E78.5 and Family history of thyroid disease Z83.49 [place] [address] [place] [id number] [place] [address] October, [place] [address] [place] [id number] [place] [address] October, Hypertension I10 ; Hyperlipi demia, unspecified hyperlipidemia type E78.5 and Family history of thyroid problem Z83.49 [place] [address] [place] [id number] [place] [address] October, Bipolar 1 disorder, mixed F3 1.60 [place] [address] [place] [id number] [place] [address] Sep, Bipolar 1 disorder, mixed F3 1.60 [place] [address] [place] [id number] [place] [address] Sep, Bipolar 1 disorder, mixed F3 1.60 [place] [address] [place] [id number] [place] [address] Sep, Bipolar 1 disorder, mixed F3 1.60 [facility] [address] [id number] [place] [address] Sep, History of colon polyps Z86. 010 and Hematochezia K92.1 [facility] [address] [place] [id number] [place] [address] Sep, Major depressive disorder, r ecurrent episode, moderate F33.1 [facility] [address] [place] [id number] [place] [address] Sep, Bipolar 1 disorder, mixed F3 1.60 [facility] [address] [place] [id number] [place] [address] Aug, Hot flashes due to menopause N95.1 [facility] [address] [place] [id number] [place] [address] Aug, Bipolar 1 disorder, mixed F3 1.60 [place] [address] [place] [address] Aug, [facility] [address] [place] [id number] [place] [address] Aug, Bipolar 1 disorder, mixed F3 1.60 [place] [address] [place] [id number] [place] [address] Aug, Bipolar 1 disorder, mixed F3 1.60 [place] [address] [place] [id number] [place] [address] Aug, Hot flashes due to menopause N95.1 ; Cervicalgia M54.2 and Ataxia R27.0 [facility] [address] [facility] [id number] [address] [place] [address] Jul, Bipolar 1 disorder, mixed F3 1.60 [facility] [address] [place] [id number] [place] [address] Jul, Bipolar 1 disorder, mixed F3 1.60 [facility] [address] [place] [id number] [place] [address] Jul, Bipolar 1 disorder, mixed F3 1.60 [place] [address] Jul, Bipolar 1 disorder, mixed F3 1.60 [place] [address] 10 Jul, 2016 Bipolar 1 disorder, mixed F3 1.60 [place] [address] 08 Jul, 2016 Cervicalgia M54.2 ; Tremor R 25.1 ; Hearing abnormally acute, unspecified laterality H93.239 ; Alopecia L65.9 ; Encounter for immunization Z23 and Family history of thyroid disease Z83.49 [place] [address] Jul, Bipolar 1 disorder, mixed F3 1.60 [place] [address] [place] [address] Jun, [place] [address] Jun, Hearing disorder, unspecifie d laterality H93.299 [place] [address] Jun, Bipolar 1 disorder, mixed F3 1.60 [place] [address] [place] [address] Jun, Bipolar 1 disorder, mixed F3 1.60 [place] [address] [address] Jun, Allergic rhinitis J30.9 [place] [address] [place] [address] Jun, Bipolar 1 disorder, mixed F3 1.60 [place] [address] [address] Jun, Bipolar 1 disorder, mixed F3 1.60 [facility] [address] [id number] [address] [place] [address] Jun, Allergic rhinitis J30.9 [facility] [address] [id number] [address] [place] [address] Jun, Allergic rhinitis J30.9 [facility] [address] [id number] [address] [place] [address] Jun, Bipolar 1 disorder, mixed F3 1.60 [facility] [address] [id number] [address] [place] [address] May, Bipolar 1 disorder, mixed F3 1.60 [facility] [address] [id number] [address] [place] [address] May, Bipolar 1 disorder, mixed F3 1.60 [facility] [address] [id number] [address] [place] [address] May, [facility] [address] [id number] [address] [place] [address] May, Bipolar 1 disorder, mixed F3 1.60 [facility] [address] [id number] [address] [place] [address] May, Bipolar 1 disorder, mixed F3 1.60 [facility] [address] [id number] [address] [place] [address] May, [facility] [address] [id number] [address] [place] [address] May, [facility] [address] [id number] [address] [place] [address] May, [facility] [address] [id number] [address] [place] [address] May, Abdominal pain, unspecified location R10.9 [facility] [address] [facility] [id number] [address] [place] [address] May, [facility] [address] [address] Apr, Hematuria R31.9 ; Ataxia R27 .0 and Hearing loss, unspecified laterality H91.90 [place] [address] [address] Apr, Bipolar 1 disorder, mixed F3 1.60 [facility] [address] [address] Apr, Acute effusion of both middl e ears H65.193 [place] [address] [address] Apr, Hematuria R31.9 and Pyelonep hritis N12 [place] [address] [address] Apr, [place] [address] [address] Mar, Bipolar 1 disorder, mixed F3 1.60 [place] [address] [address] Mar, [place] [address] [place] [address] Mar, Bipolar 1 disorder, mixed F3 1.60 [place] [address] [address] Mar, Bipolar 1 disorder, mixed F3 1.60 [place] [address] [place] [address] Mar, Encounter for immunization Z 23 and Gastritis without bleeding, unspecified chronicity, unspecified gastritis type K29.70 [place] [address] [address] Mar, Bipolar 1 disorder, mixed F3 1.60 and Grief F43.20 [place] [address] [address] Mar, Gastritis without bleeding, unspecified chronicity, unspecified gastritis type K29.70 [facility] [address] [place] [id number] [address] [place] [address] Mar, Bipolar 1 disorder, mixed F3 1.60 [place] [address] [place] [id number] [address] [place] [address] Mar, Gastritis without bleeding, unspecified chronicity, unspecified gastritis type K29.70 [facility] [address] [place] [address] Mar, [place] [address] [place] [address] Feb, Bipolar 1 disorder, mixed F3 1.60 [place] [address] [place] [address] Feb, Bipolar 1 disorder, mixed F3 1.60 and Grief F43.20 [place] [address] [address] Feb, Gastritis without bleeding, unspecified chronicity, unspecified gastritis type K29.70 [place] [address] [id number] 14 Feb, 2016 Bipolar 1 disorder, mixed F3 1.60 [facility] [address] [id number] [place] [id number] 09 Feb, 2016 Gastroesophageal reflux dise ase, esophagitis presence not specified K21.9 [facility] [address] [place] [id number] [place] [id number] Jan, Bipolar 1 disorder, mixed F3 1.60 [place] [address] [address] Jan, Bipolar 1 disorder, mixed F3 1.60 and Unsteady gait R26.81 [place] [address] [place] [id number] [place] [id number] Jan, Bipolar 1 disorder, mixed F3 1.60 [facility] [address] [id number] [place] [id number] Jan, Bipolar 1 disorder, mixed F3 1.60 and Other fci (current) drug therapy Z79.899 [facility] [address] [facility] [id number] [address] [place] [id number] Jan, Bipolar 1 disorder, mixed F3 1.60 [place] [address] [place] [id number] [place] [id number] Jan, Bipolar 1 disorder, mixed F3 1.60 [place] [address] [place] [id number] [place] [id number] Jan, Bipolar 1 disorder, mixed F3 1.60 ; Grief F43.20 and Other fci (current) drug therapy Z79.899 [place] [address] [place] [id number] [address] [place] [address] Jan, Bipolar 1 disorder, mixed F3 1.60 [place] [address] [place] [id number] [address] [place] [address] Dec, [place] [address] [place] [id number] [address] [place] [address] Dec, Bipolar 1 disorder, mixed F3 1.60 ; Vitamin D deficiency, unspecified E55.9 ; H/O allergic rhinitis Z87.09 ; Other chronic pain G89.29 and Dorsalgia, unspecified M54.9 [place] [address] [place] [id number] [address] [place] [address] Dec, [place] [address] [place] [id number] [address] [place] [address] Dec, Bipolar 1 disorder, mixed F3 1.60 [place] [address] [place] [id number] [address] [place] [address] Dec, Major depressive disorder, r ecurrent episode, moderate F33.1 [place] [address] [place] [id number] [address] [place] [address] Dec, Major depressive disorder, r ecurrent episode, moderate F33.1 [facility] [address] [facility] [id number] [address] [place] [address] Nov, [place] [address] [facility] [id number] [address] [place] [address] Nov, Bipolar 1 disorder, mixed F3 1.60 [place] [address] [facility] [id number] [address] [place] [address] Nov, Major depressive disorder, r ecurrent episode, moderate F33.1 [place] [address] [facility] [id number] [address] [place] [address] Nov, Cervicalgia M54.2 ; Arthralg ia of hip, unspecified laterality M25.559 ; Allergic rhinitis J30.9 and Hormone replacement therapy Z79.890 [facility] [address] [facility] [id number] [address] [place] [address] Nov, Other seasonal allergic rhin itis J30.2 [place] [address] [facility] [id number] [address] [place] [address] October, Major depressive disorder, r ecurrent episode, moderate F33.1 [place] [address] [facility] [id number] [address] [place] [address] October, Major depressive disorder, r ecurrent episode, moderate F33.1 and Arthralgia of hip, unspecified laterality M25.559 [place] [address] [facility] [id number] [address] [place] [address] October, Grief F43.20 ; Hypertension I10 ; Hyperlipidemia, unspecified hyperlipidemia type E78.5 ; Other chronic pain G89.29 and Allergic rhinitis, unspecified allergic rhinitis type J30.9 [place] [address] [facility] [id number] [address] [place] [address] October, Major depressive disorder, r ecurrent episode, moderate F33.1 [place] [address] [facility] [id number] [address] [place] [address] Sep, Major depressive disorder, r ecurrent episode, moderate F33.1 [facility] [address] [id number] [address] [place] [address] Sep, [facility] [address] [id number] [address] [place] [address] Sep, Major depressive disorder, r ecurrent episode, moderate F33.1 [facility] [address] [facility] [id number] [address] [place] [address] Sep, Grief F43.20 [facility] [address] [id number] [address] [place] [address] Aug, Major depressive disorder, r ecurrent episode, moderate F33.1 [place] [address] [facility] [id number] [address] [place] [address] Aug, Bipolar 1 disorder, mixed F3 1.60 [place] [address] [facility] [id number] [address] [place] [address] Aug, Allergic rhinitis J30.9 ; Ce rvicalgia M54.2 and Low back pain M54.5 [facility] [address] [facility] [id number] [address] [place] [address] Aug, Major depressive disorder, r ecurrent episode, moderate F33.1 [facility] [address] [facility] [id number] [address] [place] [address] Aug, Sinusitis J32.9 and Tobacco 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 [facility] [address] [facility] [id number] [address] [place] [address] Aug, [facility] [address] [facility] [id number] [address] [place] [address] Aug, Depressive disorder, not els ewhere classified F32.9 ; Hormone replacement therapy Z79.[address] scan, head R93.0 [facility] [address] [facility] [id number] [address] [place] [address] Aug, Major depressive disorder, r ecurrent episode, moderate F33.1 [facility] [address] [id number] [address] [place] [address] 17 Jul, 2015 Major depressive disorder, r ecurrent episode, moderate F33.1 [facility] [address] [id number] [address] [place] [address] 17 Jul, 2015 Abdominal pain R10.9 and Hyp ertension I10 [facility] [address] [id number] [address] [place] [address] 08 Jul, 2015 [facility] [address] [id number] [address] [place] [address] 05 Jul, 2015 Major depressive disorder, r ecurrent episode, moderate F33.1 [facility] [address] [id number] [address] [place] [address] 04 Jul, 2015 [facility] [address] [facility] [id number] [address] [place] [address] Jul, [facility] [address] [id number] [address] [place] [address] Jun, [facility] [address] [facility] [id number] [address] [place] [address] Jun, Depressive disorder, not els ewhere classified F32.9 [facility] [address] [facility] [id number] [address] [place] [address] Jun, [facility] [address] [facility] [id number] [address] [place] [address] Jun, [facility] [address] [facility] [id number] [address] [place] [address] Jun, Arthralgia of hip, unspecifi ed laterality M25.559 ; Bruising, spontaneous R23.3 and Night sweats R61 [facility] [address] [id number] [address] [place] [address] Jun, [facility] [address] [facility] [id number] [address] [place] [address] Jun, [facility] [address] [id number] [address] [place] [address] May, [facility] [address] [id number] [address] [place] [address] May, Myalgia M79.1 and Screening, lipid Z13.220 [facility] [address] [facility] [id number] [address] [place] [address] Apr, Status post cervical spinal fusion Z98.1 ; Fibromyalgia M79.7 and Unsteady gait R26.81 [facility] [address] [id number] [address] [place] [address] Nov, [facility] [address] [id number] [address] [place] [address] Nov, [facility] [address] [facility] [id number] [address] [place] [address] October, [facility] [address] [id number] [address] [place] [address] October, [facility] [address] [facility] [id number] [address] [place] [address] October, [facility] [address] [facility] [id number] [address] [place] [address] October, [facility] [address] [facility] [id number] [address] [place] [address] October, [facility] [address] [facility] [id number] [address] [place] [address] October, Dysuria 788.1 ; Nausea 787.0 2 and Urinary tract infection 599.0 [facility] [address] [id number] [address] [place] [address] 14 Sep, 2014 [facility] [address] [facility] [id number] [address] [place] [address] Sep, [facility] [address] [id number] [facility] [place] [address] 25 Aug, 2014 [facility] [address] [id number] [address] [place] [address], [place] [address] 25 Aug, 2014 [facility] [address] [id number] [address] [place] [address], [place] [address] 24 Aug, 2014 [facility] [address] [id number] [address] [place] [address], [place] [address] 24 Aug, 2014 [facility] [address] [id number] [address] [place] [address], [place] [address] 23 Aug, 2014 [facility] [address] [id number] [address] [place] [address], [place] [address] 19 Aug, 2014 [facility] [address] [id number] [address] [place] [address], [place] [address] 19 Aug, 2014 [facility] [address] [id number] [address] [place] [address], [place] [address] 19 Aug, 2014 [facility] [address] [id number] [address] [place] [address], [place] [address] 19 Aug, 2014 [facility] [address] [id number] [address] [place] [address], [place] [address] 18 Aug, 2014 [facility] [address] [id number] [address] [place] [address], [place] [address] 18 Aug, 2014 [facility] [address] [id number] [address] [place] [address], [place] [address] 13 Aug, 2014 [facility] [address] [id number] [address] [place] [address], [place] [address] 13 Aug, 2014 [facility] [address] [id number] [address] [place] [address], [place] [address] 11 Aug, 2014 [facility] [address] [id number] [address] [place] [address], [place] [address] 11 Aug, 2014 [facility] [address] [id number] [address] [place] [address], [place] [address] 06 Aug, 2014 [facility] [address] [id number] [address] [place] [address], [place] [address] Aug, 2014 [facility] [address] [id number] [address] [place] [address], [place] [address] Aug, 2014 [facility] [address] [id number] [address] [place] [address], [place] [address] Aug, 2014 [facility] [address] [id number] [address] [place] [address], [place] [address] Aug, 2014 [facility] [address] [id number] [address] [place] [address], [place] [address] Aug, [facility] [address] [id number] [address] [place] [address], [place] [address] Aug, [facility] [address] [id number] [address] [place] [address], [place] [address] Jul, [facility] [address] [id number] [address] [place] [address], [place] [address] Jul, 2014 [facility] [address] [id number] [address] [place] [address], [place] [address] Jul, [facility] [address] [id number] [address] [place] [address], [place] [address] Jul, 2014 [facility] [address] [id number] [address] [place] [address], [place] [address] Jul, [facility] [address] [id number] [address] [place] [address], [place] [address] Jul, 2014 [facility] [address] [id number] [address] [place] [address], [place] [address] Jul, 2014 [facility] [address] [id number] [address] [place] [address], [place] [address] Jul, 2014 [facility] [address] [id number] [address] [place] [address], [place] [address] Jul, 2014 [facility] [address] [id number] [address] [place] [address], [place] [address] Jul, 2014 [facility] [address] [id number] [address] [place] [address], [place] [address] Jul, 2014 [facility] [address] [id number] [address] [place] [address], [place] [address] Jul, 2014 [facility] [address] [id number] [address] [place] [address], [place] [address] Jul, 2014 [facility] [address] [id number] [address] [place] [address], [place] [address] Jul, 2014 [facility] [address] [id number] [address] [place] [address], [place] [address] Jun, [facility] [address] [id number] [address] [place] [address], [place] [address] Jun, [facility] [address] [id number] [address] [place] [address], [place] [address] Jun, [facility] [address] [id number] [address] [place] [address], [place] [address] Jun, [facility] [address] [id number] [address] [place] [address], [place] [address] Jun, [facility] [address] [id number] [address] [place] [address], [place] [address] Jun, [facility] [address] [id number] [address] [place] [address], [place] [address] May, [facility] [address] [id number] [address] [place] [address], [place] [address] May, [facility] [address] [id number] [address] [place] [address], [place] [address] May, [facility] [address] [id number] [address] [place] [address], [place] [address] May, [facility] [address] [id number] [address] [place] [address], [place] [address] May, [facility] [address] [id number] [address] [place] [address], [place] [address] May, [facility] [address] [id number] [address] [place] [address], [place] [address] Apr, [facility] [address] [id number] [address] [place] [address], [place] [address] Apr, [facility] [address] [id number] [address] [place] [address], [place] [address] Apr, [facility] [address] [id number] [address] [place] [address], [place] [address] Apr, [facility] [address] [id number] [address] [place] [address], [place] [address] Apr, [facility] [address] [id number] [address] [place] [address], [place] [address] Apr, [facility] [address] [id number] [address] [place] [address], [place] [address] Mar, [facility] [address] [id number] [address] [place] [address], [place] [address] Mar, [facility] [address] [id number] [address] [place] [address] Mar, [facility] [address] [id number] [address] [place] [address] Mar, [facility] [address] [id number] [address] [place] [address] Mar, [facility] [address] [id number] [address] [place] [address] Mar, [facility] [address] [id number] [address] [place] [address] Mar, [facility] [address] [id number] [address] [place] [address] Mar, [facility] [address] [id number] [address] [place] [address] Mar, [facility] [address] [id number] [address] [place] [address], [place] [address] Mar, [facility] [address] [id number] [address] [place] [address], [place] [address] Mar, [facility] [address] [id number] [address] [place] [address], [place] [address] Mar, [facility] [address] [id number] [address] [place] [address], [place] [address] 30 Feb, 2014 [facility] [address] [id number] [address] [place] [address], [place] [address] 29 Feb, 2014 [facility] [address] [id number] [address] [place] [address], [place] [address] 29 Feb, 2014 [facility] [address] [id number] [address] [place] [address], [place] [address] Feb, [facility] [address] [id number] [address] [place] [address], [place] [address] Feb, [facility] [address] [id number] [address] [place] [address], [place] [address] Feb, [facility] [address] [id number] [address] [place] [address], [place] [address] Feb, [facility] [address] [id number] [address] [place] [address], [place] [address] Jan, [facility] [address] [id number] [address] [place] [address], [place] [address] Jan, [facility] [address] [id number] [address] [place] [address], [place] [address] Jan, [facility] [address] [id number] [address] [place] [address], [place] [address] Dec, [facility] [address] [id number] [address] [place] [address], [place] [address] Dec, [facility] [address] [id number] [facility] [place] [address] Dec, [facility] [address] [id number] [address] [place] [address], [place] [address] Dec, [facility] [address] [id number] [address] [place] [address], [place] [address] Sep, [facility] [address] [id number] [address] [place] [address], [place] [address] Sep, [facility] [address] [id number] [address] [place] [address], [place] [address] Sep, [facility] [address] [id number] [address] [place] [address], [place] [address] Sep, [facility] [address] [id number] [address] [place] [address], [place] [address] Sep, [facility] [address] [id number] [address] [place] [address], [place] [address] Sep, [facility] [address] [id number] [address] [place] [address], [place] [address] Sep, [facility] [address] [id number] [address] [place] [address], [place] [address] Sep, [facility] [address] [id number] [address] [place] [address], [place] [address] Aug, [facility] [address] [id number] [address] [place] [address], [place] [address] Aug, [facility] [address] [id number] [address] [place] [address], [place] [address] May, [facility] [address] [id number] [address] [place] [address], [place] [address] May, [facility] [address] [id number] [address] [place] [address], [place] [address] Apr, [facility] [address] [id number] [address] [place] [address] [address] Apr, [facility] [address] [id number] [address] [place] [address], [place] [address] Apr, [facility] [address] [id number] [address] [place] [address], [place] [address] Apr, [facility] [address] [id number] [address] [place] [address], [place] [address] Apr, [facility] [address] [id number] [address] [place] [address], [place] [address] Apr, [facility] [address] [id number] [address] [place] [address], [place] [address] May, [facility] [address] [id number] [address] [place] [address], [place] [address] 18 May, 2012 [facility] [address] [id number] [address] [place] [address], [place] [address] 15 May, 2012 [facility] [address] [id number] [address] [place] [address], [place] [address] 15 May, 2012 [facility] [address] [id number] [address] [place] [address], [place] [address] May, [facility] [address] [id number] [address] [place] [address], [place] [address] May, [facility] [address] [id number] [address] [place] [address], [place] [address] Apr, [facility] [address] [id number] [address] [place] [address], [place] [address] Apr, [facility] [address] [id number] [address] [place] [address], [place] [address] Apr, [facility] [address] [id number] [address] [place] [address], [place] [address] Apr, [facility] [address] [id number] [address] [place] [address], [place] [address] Apr, [facility] [address] [id number] [address] [place] [address], [place] [address] 08 Apr, 2012 [facility] [address] [id number] [address] [place] [address], [place] [address] 07 Apr, 2012 [facility] [address] [id number] [address] [place] [address], [place] [address] Apr, [facility] [address] [id number] [address] [place] [address], [place] [address] 07 Apr, 2012 [facility] [address] [id number] [address] [place] [address], [place] [address] Apr, [facility] [address] [id number] [address] [place] [address], [place] [address] Mar, [facility] [address] [id number] [address] [place] [address], [place] [address] Mar, [facility] [address] [id number] [address] [place] [address], [place] [address] Mar, [facility] [address] [id number] [address] [place] [address], [place] [address] Mar, [facility] [address] [id number] [address] [place] [address], [place] [address] Mar, [facility] [address] [id number] [address] [place] [address] Mar, [facility] [address] [id number] [address] [place] [address], [place] [address] Mar, [facility] [address] [id number] [address] [place] [id number] Mar, [facility] [address] [id number] [address] [place] [address], [place] [address] Mar, [facility] [address] [id number] [address] [place] [id number] 25 Feb, 2012 [facility] [address] [id number] [address] [place] [id number] 16 Feb, 2012 [facility] [address] [id number] [address] [place] [address], [place] [address] Feb, [facility] [address] [id number] [address] [place] [address], [place] [address] Jan, [facility] [address] [id number] [address] [place] [address], [place] [address] Jan, [facility] [address] [id number] [address] [place] [address], [place] [address] Jan, [facility] [address] [id number] [address] [place] [address], [place] [address] Jan, [facility] [address] [id number] [address] [place] [address], [place] [address] Jan, [facility] [address] [id number] [address] [place] [address], [place] [address] Jan, [facility] [address] [id number] [address] [place] [address], [place] [address] Jan, [facility] [address] [id number] [address] [place] [address], [place] [address] Jan, [facility] [address] [id number] [address] [place] [address], [place] [address] Jan, [facility] [address] [id number] [address] [place] [address], [place] [address] Jan, [facility] [address] [id number] [address] [place] [address], [place] [address] Dec, [facility] [address] [id number] [address] [place] [address], [place] [address] Dec, [facility] [address] [id number] [address] [place] [address], [place] [address] Dec, [facility] [address] [id number] [address] [place] [address], [place] [address] Dec, [facility] [address] [id number] [address] [place] [address], [place] [address] Nov, [facility] [address] [id number] [address] [place] [address], [place] [address] Nov, [facility] [address] [id number] [address] [place] [address], [place] [address] Nov, [facility] [address] [id number] [address] [place] [address], [place] [address] October, [facility] [address] [id number] [address] [place] [address], [place] [address] October, [facility] [address] [id number] [address] [place] [address], [place] [address] October, [facility] [address] [id number] [address] [place] [address], [place] [address] October, [facility] [address] [id number] [address] [place] [address], [place] [address] October, [facility] [address] [id number] [address] [place] [address], [place] [address] October, [facility] [address] [id number] [address] [place] [address], [place] [address] Aug, [facility] [address] [id number] [address] [place] [address], [place] [address] Mar, [facility] [address] [id number] [address] [place] [address], [place] [address] Nov, [facility] [address] [id number] [address] [place] [address], [place] [address] May, [facility] [address] [id number] [address] [place] [address], [place] [address] May, [facility] [address] [id number] [address] [place] [address], [place] [address] Apr, [facility] [address] [id number] [address] [place] [address], [place] [address] 15 Mar, 2010 [facility] [address] [id number] [address] [place] [address] 15 Mar, 2010 IMMUNIZATIONS Vaccine Route Administration Date Status ZOSTER (ZOSTAVAX) SC Subcutaneous May 16, 2017 Administered SOCIAL HISTORY Never Assessed REASON FOR VISIT Depression, shingle shot--Dunia Cain MA PLAN OF CARE Activity Details Follow Up 4 Weeks Reason:depression VITAL SIGNS Height 64 in 2017-05-16 Weight 159.3 lbs 2017-05-16 Temperature 98.3 degrees Fahrenheit 2017-05-16 Heart Rate 100 bpm 2017-05-16 Respiratory Rate 20 2017-05-16 BMI 27.34 kg/m2 2017-05-16 Blood pressure systolic 124 mmHg 2017-05-16 Blood pressure diastolic 82 mmHg 2017-05-16 MEDICATIONS Medication Instructions Dosage Frequency Start Date End Date Duration S tatus Flexeril 10 mg by oral route 2 times a day 1 tablet 12h 18 Aug, 2014 30 Active Magnesium 500 MG Orally Once a day 1 tablet with a meal 24h Dec, Active Melatonin 5 MG Orally at bedtime 1 Tablet by Oral route 1 time per day HS Active Nitrofurantoin Macrocrystal 100 MG Orally Once a day 1 cap isabel with food or milk 24h Active Vitamin D3 2000 UNIT Orally Once a day as directed 24h Dec, Active Pantoprazole Sodium 20 MG TAKE 1 TABLET BY MOUTH ONCE DAILY 30 Active Depakote ER 500 mg Orally at bedtime 2 tabs 30 days Active Mucinex 600 MG Orally every 12 hrs 1 tablet as needed 12h Not-Taking Vagifem 10 MCG Vaginal Two times a Week 1 tablet Active Multi Vitamin Daily Orally Once a day 1 tablet 24h Active Selenium 50 MCG Orally Once a day 1 tablet 24h Active HydrOXYzine HCl 10 mg Orally BID prn anxiety, MAX 45 tabs monthly 1 t ablet 30 days Active Fetzima 120 mg Orally Once a day TAKE 1 CAPSULE BY MOUTH DAILY 24h 30 days Active Cetirizine HCl 10 mg Orally Once a day 1 tablet 24h Jan, 7 Jan, 90 days Active Probiotic Acidophilus Ac tive Estradiol 2 MG Orally Once a day 1 tablet 24h Active Flonase 50 MCG/ACT Nasally twice a day 1 spray in each nostril 12h Jan, Active Myrbetriq 50 MG Orally Once a day 1 tablet 24h Active Diflucan 150 MG Orally Once a day 1 tablet and may repeat in 3 days 24h Apr, Not-Taking Ibuprofen 200 MG Orally every 6 hrs 1 tablet as needed 6h Not-Taking Voltaren 1 % Transdermal 4 times a day on neck Active O79-Poliiy 1 MG Active RESULTS No Results PROCEDURES Procedure Date Ordered Result Body Site ZOSTER (ZOSTAVAX) May 16, 2017 SINGLE IMMUNIZATION ADMIN May 16, 2017 [facility] VISIT ESTABLISHED PATIENT May 16, 2017 Media Visit needs to be added with another visit on the [facility] day May 16, 2017 INSTRUCTIONS MEDICATIONS ADMINISTERED No [...]
--- OUTSIDE RECORDS SUMMARY | 2019-06-19 06:00 | XMS REPORT ---
Author Author Sydnie MORTON Organization [facility] Address [address] [place] [address] Care Team Providers Care Pc Network Technician Name Role Phone JOHN MORTON Unavailable PROBLEMS Type Condition ICD9-CM Code [id number] Code Onset Dates Condition S tatus SNOMED Code Problem Hormone replacement therapy Z79.890 Ac tive 048413648 Problem Abnormal CT scan, head R93.0 Active 797285810 Problem Sensorineural hearing loss (SNHL) of both ears H90 .3 Active 601729168 Problem History of colon polyps Z86.010 Active 473130590 Problem Bruising, spontaneous R23.3 Active 695198349 Problem Generalized anxiety disorder F41.1 A ctive 37441715 Problem Arthralgia of hip, unspecified laterality M25.559 Active 62906602 Problem Hematuria, unspecified type R31.9 Ac tive 73716327 Problem Imbalance R26.89 Active 004052819 Problem Hammer toe of right foot M20.41 Activ e 379348319 Problem Plantar wart of right foot B07.0 Act mitchell [id number] Problem Sciatica of left side M54.32 Active 97627159 Problem Hyperlipidemia, unspecified hyperlipidemia type E7 8.5 Active 03449387 Problem Hypertension I10 Active 3088979 3 Problem Night sweats R61 Active 0771077 0 Problem Fibromyalgia M79.7 Active 1163575 7 Problem Major depressive disorder, recurrent episode, moderate F33.1 Active 155216772 Problem Acute left-sided low back pain with left-sided sciatica M54.42 Active 907376037 Problem Bladder spasm N32.89 Active 525053 006 Problem Gastritis without bleeding, unspecified chronicity, unspecified gastritis type K29.70 Active 348066386 Problem Bipolar 1 disorder, mixed F31.60 Acti ve 13016832 Problem Grief F43.20 Active 43568106 Problem Other chronic pain G89.29 Active 8 2375007 Problem Allergic rhinitis J30.9 Active 61 793846 Problem Hot flashes due to menopause N95.1 A ctive 496416996 Problem Ataxia R27.0 Active 66093460 Problem Hearing loss, unspecified laterality H91.90 Active [id number] ALLERGIES No Information ENCOUNTERS Encounter Location Date Diagnosis [facility] [address] [facility] [id number] [address] [place] [address] Dec, [facility] [address] [facility] [id number] [address] [place] [address] Nov, [facility] [address] [facility] [id number] [address] [place] [address] October, [facility] [address] [facility] [id number] [address] [place] [address] October, [facility] [address] [facility] [id number] [address] [place] [address] October, [facility] [address] [facility] [id number] [address] [place] [address] October, [facility] [address] [facility] [id number] [address] [place] [address] October, Bipolar 1 disorder, mixed F3 1.60 [facility] [address] [facility] [id number] [address] [place] [address] Sep, Bipolar 1 disorder, mixed F3 1.60 [facility] [address] [facility] [id number] [address] [place] [address] Sep, Other chronic pain G89.29 [facility] [address] [facility] [id number] [address] [place] [address] Sep, [facility] [address] [facility] [id number] [address] [place] [address] Sep, Bipolar 1 disorder, mixed F3 1.60 [facility] [address] [facility] [id number] [address] [place] [address] Sep, Allergic rhinitis J30.9 and Sciatica of left side M54.32 [facility] [address] [facility] [id number] [address] [place] [address] Sep, Bipolar 1 disorder, mixed F3 1.60 [facility] [address] [facility] [id number] [address] [place] [address] Sep, Bipolar 1 disorder, mixed F3 1.60 and Generalized anxiety disorder F41.1 [facility] [address] [place] [id number] [address] [place] [address] Aug, [facility] [address] [facility] [id number] [address] [place] [address] Aug, Bipolar 1 disorder, mixed F3 1.60 [facility] [address] [facility] [id number] [address] [place] [address] Aug, Bipolar 1 disorder, mixed F3 1.60 [facility] [address] [place] [id number] [address] [place] [address] Aug, [facility] [address] [place] [id number] [address] [place] [address] Aug, Generalized anxiety disorder F41.1 [facility] [address] [facility] [id number] [address] [place] [address] Aug, Bipolar 1 disorder, mixed F3 1.60 [facility] [address] [place] [id number] [address] [place] [address] Aug, Plantar wart of right foot B 07.0 [facility] [address] [facility] [id number] [address] [place] [address] Aug, Bipolar 1 disorder, mixed F3 1.60 [facility] [address] [facility] [id number] [address] [place] [address] Jul, Bipolar 1 disorder, mixed F3 1.60 [facility] [address] [place] [id number] [address] [place] [address] Jul, [facility] [address] [place] [id number] [address] [place] [address] 14 Jul, 2017 Bipolar 1 disorder, mixed F3 1.60 [facility] [address] [facility] [id number] [address] [place] [address] 09 Jul, 2017 Generalized anxiety disorder F41.1 [facility] [address] [place] [id number] [address] [place] [address] 07 Jul, 2017 Bipolar 1 disorder, mixed F3 1.60 [facility] [address] [place] [id number] [address] [place] [address] Jul, Acute left-sided low back pa in with left-sided sciatica M54.42 [facility] [address] [place] [id number] [address] [place] [address] 05 Jul, 2017 Coccydynia M53.3 [facility] [address] [place] [id number] [address] [place] [address] Jun, Bipolar 1 disorder, mixed F3 1.60 [facility] [address] [place] [id number] [address] [place] [address] Jun, Acute nasopharyngitis J00 [facility] [address] [place] [id number] [place] [address] Jun, Bipolar 1 disorder, mixed F3 1.60 [facility] [address] [place] [id number] [address] [place] [address] Jun, Fibromyalgia M79.7 [facility] [address] [place] [id number] [address] [place] [address] Jun, Bipolar 1 disorder, mixed F3 1.60 [facility] [address] [place] [id number] [address] [place] [address] Jun, Fibromyalgia M79.7 and Bipol ar 1 disorder, mixed F31.60 [facility] [address] [place] [id number] [address] [place] [address] May, Bipolar 1 disorder, mixed F3 1.60 ; Generalized anxiety disorder F41.1 and Other alf (current) drug therapy Z79.899 [place] [address] [place] [id number] [address] [place] [address] May, Bipolar 1 disorder, mixed F3 1.60 [facility] [address] [place] [id number] [address] [place] [address] 14 May, 2017 Cough R05 and Body aches R52 [facility] WALK IN [facility] [address] [place] [id number] [place] [address] 10 May, 2017 Bladder spasm N32.89 and Acu te cystitis without hematuria N30.00 [place] [address] [address] 07 May, 2017 Bipolar 1 disorder, mixed F3 1.60 [place] [address] [address] 30 Apr, 2017 [place] [address] [address] Apr, Major depressive disorder, r ecurrent episode, moderate F33.1 and Encounter for immunization Z23 [place] [address] [address] Apr, Bipolar 1 disorder, mixed F3 1.60 [place] [address] [address] Apr, Bipolar 1 disorder, mixed F3 1.60 [place] [address] [address] 16 Apr, 2017 Bipolar 1 disorder, mixed F3 1.60 [place] [address] [address] 13 Apr, 2017 Yeast vaginitis B37.3 [place] [address] [place] [id number] [place] [address] 09 Apr, 2017 Bipolar 1 disorder, mixed F3 1.60 [facility] [address] [place] [id number] [address] [place] [address] 07 Apr, [address]03[address] for immunization Z23 [facility] [address] [place] [id number] [address] [place] [address] Apr, Bipolar 1 disorder, mixed F3 1.60 [facility] [address] [place] [id number] [address] [place] [address] Mar, Bipolar 1 disorder, mixed F3 1.60 [facility] [address] [place] [id number] [address] [place] [id number] Mar, Bipolar 1 disorder, mixed F3 1.60 [place] [address] [place] [id number] [address] [place] [id number] Mar, Imbalance R26.89 and Encount er for immunization Z23 [place] [address] [place] [id number] [address] [place] [address] Mar, Generalized anxiety disorder F41.1 [place] [address] [place] [id number] [address] [place] [address] Mar, Bipolar 1 disorder, mixed F3 1.60 [place] [address] [place] [id number] [address] [place] [address] Mar, Generalized anxiety disorder F41.1 [place] [address] [place] [id number] [address] [place] [address] Mar, Bipolar 1 disorder, mixed F3 1.60 [place] [address] [place] [id number] [address] [place] [address] Mar, Bipolar 1 disorder, mixed F3 1.60 [place] [address] [place] [id number] [address] [place] [address] Feb, Bipolar 1 disorder, mixed F3 1.60 [facility] [address] [place] [id number] [address] [place] [address] Feb, Bipolar 1 disorder, mixed F3 1.60 and Generalized anxiety disorder F41.1 [facility] [address] [place] [id number] [address] [place] [address] Feb, Gastritis without bleeding, unspecified chronicity, unspecified gastritis type K29.70 ; Hammer toe of right foot M20.41 and Other viral warts B07.8 [place] [address] [facility] [id number] [address] [place] [address] Feb, Bipolar 1 disorder, mixed F3 1.60 [place] [address] [facility] [id number] [address] [place] [address] Feb, Bipolar 1 disorder, mixed F3 1.60 [place] [address] [facility] [id number] [address] [place] [phone] 05 Feb, 2017 Bipolar 1 disorder, mixed F3 1.60 [place] [address] [facility] [id number] [address] [place] [address] Jan, Encounter for screening mamm ogram for breast cancer Z12.31 ; Other viral warts B07.8 and Allergic rhinitis J30.9 [place] [address] [facility] [id number] [address] [place] [address] Jan, Bipolar 1 disorder, mixed F3 1.60 [place] [address] [facility] [id number] [address] [place] [address] Jan, Bipolar 1 disorder, mixed F3 1.60 [place] [address] [facility] [id number] [address] [place] [address] Jan, [place] [address] [facility] [id number] [address] [place] [address] Jan, Bipolar 1 disorder, mixed F3 1.60 [place] [address] [facility] [id number] [address] [place] [address] Jan, Bipolar 1 disorder, mixed F3 1.60 [place] [address] [facility] [id number] [address] [place] [address] Jan, Allergic rhinitis J30.9 ; He maturia R31.9 and Colon cancer screening Z12.11 [place] [address] [facility] [id number] [address] [place] [address] Dec, Bipolar 1 disorder, mixed F3 1.60 [facility] [address] [id number] [address] [place] [address] Dec, Bipolar 1 disorder, mixed F3 1.60 ; Generalized anxiety disorder F41.1 and 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 (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 therapy Z79.899 [facility] [address] [facility] [id number] [address] [place] [address] Dec, Bipolar 1 disorder, mixed F3 1.60 [facility] [address] [id number] [address] [place] [address] Dec, Bipolar 1 disorder, mixed F3 1.60 [facility] [address] [facility] [id number] [address] [place] [address] Dec, Bipolar 1 disorder, mixed F3 1.60 [facility] [address] [facility] [id number] [address] [place] [address] Dec, Low back pain M54.5 and Recu rrent urinary tract infection N39.0 [facility] [address] [id number] [address] [place] [address] Nov, Bipolar 1 disorder, mixed F3 1.60 [facility] [address] [facility] [id number] [address] [place] [address] Nov, Bipolar 1 disorder, mixed F3 1.60 [facility] [address] [facility] [id number] [address] [place] [address] Nov, Bipolar 1 disorder, mixed F3 1.60 [facility] [address] [id number] [address] [place] [address] Nov, Bipolar 1 disorder, mixed F3 1.60 [facility] [address] [facility] [id number] [address] [place] [address] Nov, [facility] [address] [facility] [id number] [address] [place] [address] Nov, Anesthesia of skin R20.0 ; F requent UTI N39.0 ; Tobacco abuse Z72.0 and Colon cancer screening Z12.11 [facility] [address] [place] [id number] [address] [place] [address] Nov, Bipolar 1 disorder, mixed F3 1.60 [facility] [address] [place] [id number] [address] [place] [address] October, Bipolar 1 disorder, mixed F3 1.60 [facility] [address] [place] [id number] [address] [place] [address] October, Bipolar 1 disorder, mixed F3 1.60 [place] [address] [place] [id number] [address] [place] [address] October, Bipolar 1 disorder, mixed F3 1.60 [place] [address] [place] [id number] [address] [place] [address] October, Bipolar 1 disorder, mixed F3 1.60 [place] [address] [address] October, Bipolar 1 disorder, mixed F3 1.60 [place] [address] [place] [id number] [address] [place] [address] October, Cervicalgia M54.2 and Bipola r 1 disorder, mixed F31.60 [place] [address] [place] [id number] [address] [place] [address] October, Hypertension I10 ; Hyperlipi demia, unspecified hyperlipidemia type E78.5 and Family history of thyroid disease Z83.49 [place] [address] [place] [id number] [address] [place] [address] October, [place] [address] [place] [id number] [address] [place] [address] October, Hypertension I10 ; Hyperlipi demia, unspecified hyperlipidemia type E78.5 and Family history of thyroid problem Z83.49 [place] [address] [place] [id number] [address] [place] [address] October, Bipolar 1 disorder, mixed F3 1.60 [facility] [address] [facility] [id number] [address] [place] [address] Sep, Bipolar 1 disorder, mixed F3 1.60 [facility] [address] [facility] [id number] [address] [place] [address] Sep, Bipolar 1 disorder, mixed F3 1.60 [facility] [address] [place] [id number] [address] [place] [address] Sep, Bipolar 1 disorder, mixed F3 1.60 [place] [address] [place] [id number] [address] [place] [address] Sep, History of colon polyps Z86. 010 and Hematochezia K92.1 [place] [address] [place] [id number] [address] [place] [address] Sep, Major depressive disorder, r ecurrent episode, moderate F33.1 [place] [address] [place] [id number] [address] [place] [address] Sep, Bipolar 1 disorder, mixed F3 1.60 [place] [address] [place] [id number] [address] [place] [address] Aug, Hot flashes due to menopause N95.1 [facility] [address] [place] [id number] [address] [place] [address] Aug, Bipolar 1 disorder, mixed F3 1.60 [place] [address] [place] [id number] [address] [place] [address] Aug, [facility] [address] [facility] [id number] [address] [place] [address] Aug, Bipolar 1 disorder, mixed F3 1.60 [place] [address] [place] [id number] [address] [place] [address] Aug, Bipolar 1 disorder, mixed F3 1.60 [facility] [address] [place] [id number] [address] [place] [address] Aug, Hot flashes due to menopause N95.1 ; Cervicalgia M54.2 and Ataxia R27.0 [place] [address] [address] Jul, Bipolar 1 disorder, mixed F3 1.60 [place] [address] [place] [address] Jul, Bipolar 1 disorder, mixed F3 1.60 [place] [address] Jul, Bipolar 1 disorder, mixed F3 1.60 [place] [address] [address] Jul, Bipolar 1 disorder, mixed F3 1.60 [place] [address] Jul, Bipolar 1 disorder, mixed F3 1.60 [place] [address] [address] Jul, Cervicalgia M54.2 ; Tremor R 25.1 ; Hearing abnormally acute, unspecified laterality H93.239 ; Alopecia L65.9 ; Encounter for immunization Z23 and Family history of thyroid disease Z83.49 [place] [address] [address] Jul, Bipolar 1 disorder, mixed F3 1.60 [place] [address] [address] Jun, [place] [address] [address] Jun, Hearing disorder, unspecifie d laterality H93.299 [place] [address] [address] Jun, Bipolar 1 disorder, mixed F3 1.60 [place] [address] [address] Jun, Bipolar 1 disorder, mixed F3 1.60 [facility] [address] [id number] [address] [place] [address] Jun, Allergic rhinitis J30.9 [facility] [address] [id number] [address] [place] [address] Jun, Bipolar 1 disorder, mixed F3 1.60 [facility] [address] [id number] [address] [place] [address] Jun, Bipolar 1 disorder, mixed F3 1.60 [facility] [address] [id number] [address] [place] [address] Jun, Allergic rhinitis J30.9 [facility] [address] [id number] [address] [place] [address] Jun, Allergic rhinitis J30.9 [facility] [address] [facility] [id number] [address] [place] [address] Jun, Bipolar 1 disorder, mixed F3 1.60 [facility] [address] [id number] [address] [place] [address] May, Bipolar 1 disorder, mixed F3 1.60 [facility] [address] [id number] [address] [place] [address] May, Bipolar 1 disorder, mixed F3 1.60 [facility] [address] [facility] [id number] [address] [place] [address] May, [facility] [address] [facility] [id number] [address] [place] [address] May, Bipolar 1 disorder, mixed F3 1.60 [facility] [address] [id number] [address] [place] [address] May, Bipolar 1 disorder, mixed F3 1.60 [facility] [address] [facility] [id number] [address] [place] [address] May, [facility] [address] [facility] [id number] [address] [place] [address] May, [facility] [address] [facility] [id number] [address] [place] [address] May, [facility] [address] [place] [id number] [address] [place] [id number] May, Abdominal pain, unspecified location R10.9 [facility] [address] [facility] [id number] [address] [place] [id number] May, [facility] [address] [place] [id number] [address] [place] [id number] Apr, Hematuria R31.9 ; Ataxia R27 .0 and Hearing loss, unspecified laterality H91.90 [facility] [address] [place] [id number] [address] [place] [id number] Apr, Bipolar 1 disorder, mixed F3 1.60 [facility] [address] [place] [id number] [address] [place] [id number] Apr, Acute effusion of both middl e ears H65.193 [facility] [address] [facility] [id number] [address] [place] [id number] Apr, Hematuria R31.9 and Pyelonep hritis N12 [facility] [address] [place] [id number] [address] [place] [id number] Apr, [facility] [address] [place] [id number] [address] [place] [id number] Mar, Bipolar 1 disorder, mixed F3 1.60 [facility] [address] [place] [id number] [address] [place] [id number] Mar, [facility] [address] [facility] [id number] [address] [place] [id number] Mar, Bipolar 1 disorder, mixed F3 1.60 [facility] [address] [place] [id number] [address] [place] [address] Mar, Bipolar 1 disorder, mixed F3 1.60 [facility] [address] [place] [id number] [address] [place] [id number] Mar, Encounter for immunization Z 23 and Gastritis without bleeding, unspecified chronicity, unspecified gastritis type K29.70 [place] [address] [place] [id number] 05 Mar, 2016 Bipolar 1 disorder, mixed F3 1.60 and Grief F43.20 [place] [address] Mar, Gastritis without bleeding, unspecified chronicity, unspecified gastritis type K29.70 [place] [address] Mar, Bipolar 1 disorder, mixed F3 1.60 [place] [address] Mar, Gastritis without bleeding, unspecified chronicity, unspecified gastritis type K29.70 [place] [address] [place] [id number] Mar, [place] [address] [id number] 27 Feb, 2016 Bipolar 1 disorder, mixed F3 1.60 [place] [address] [place] [id number] Feb, Bipolar 1 disorder, mixed F3 1.60 and Grief F43.20 [place] [address] [place] [id number] Feb, Gastritis without bleeding, unspecified chronicity, unspecified gastritis type K29.70 [place] [address] [address] 14 Feb, 2016 Bipolar 1 disorder, mixed F3 1.60 [facility] WALK IN [facility] [address] [place] [id number] 09 Feb, 2016 Gastroesophageal reflux dise ase, esophagitis presence not specified K21.9 [place] [address] [place] [address] Jan, Bipolar 1 disorder, mixed F3 1.60 [facility] [address] [facility] [id number] [address] [place] [address] Jan, Bipolar 1 disorder, mixed F3 1.60 and Unsteady gait R26.81 [facility] [address] [facility] [id number] [address] [place] [address] Jan, Bipolar 1 disorder, mixed F3 1.60 [facility] [address] [facility] [id number] [address] [place] [address] Jan, Bipolar 1 disorder, mixed F3 1.60 and Other alf (current) drug therapy Z79.899 [place] [address] [address] [facility] [id number] [address] [place] [address] Jan, Bipolar 1 disorder, mixed F3 1.60 [place] [address] [address] [place] [id number] [address] [place] [address] Jan, Bipolar 1 disorder, mixed F3 1.60 [place] [address] [address] [facility] [id number] [address] [place] [address] Jan, Bipolar 1 disorder, mixed F3 1.60 ; Grief F43.20 and 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 (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 therapy Z79.899 [place] [address] [facility] [id number] [address] [place] [address] Jan, Bipolar 1 disorder, mixed F3 1.60 [place] [address] [facility] [id number] [address] [place] [address] Dec, [place] [address] [facility] [id number] [address] [place] [address] Dec, Bipolar 1 disorder, mixed F3 1.60 ; Vitamin D deficiency, unspecified E55.9 ; H/O allergic rhinitis Z87.09 ; Other chronic pain G89.29 and Dorsalgia, unspecified M54.9 [facility] [address] [facility] [id number] [address] [place] [address] Dec, [place] [address] [address] [facility] [id number] [address] [place] [address] Dec, Bipolar 1 disorder, mixed F3 1.60 [facility] [address] [facility] [id number] [address] [place] [address] Dec, Major depressive disorder, r ecurrent episode, moderate F33.1 [place] [address] [address] [facility] [id number] [address] [place] [address] Dec, Major depressive disorder, r ecurrent episode, moderate F33.1 [place] [address] [address] [facility] [id number] [address] [place] [address] Nov, [place] [address] [address] [facility] [id number] [address] [place] [address] Nov, Bipolar 1 disorder, mixed F3 1.60 [place] [address] [address] [facility] [id number] [address] [place] [address] Nov, Major depressive disorder, r ecurrent episode, moderate F33.1 [place] [address] [address] [facility] [id number] [address] [place] [address] Nov, Cervicalgia M54.2 ; Arthralg ia of hip, unspecified laterality M25.559 ; Allergic rhinitis J30.9 and Hormone replacement therapy Z79.890 [facility] IN [facility] [address] [facility] [id number] [address] [place] [address] Nov, Other seasonal allergic rhin itis J30.2 [facility] [address] [facility] [id number] [address] [place] [address] October, Major depressive disorder, r ecurrent episode, moderate F33.1 [place] [address] [address] [facility] [id number] [address] [place] [address] October, Major depressive disorder, r ecurrent episode, moderate F33.1 and Arthralgia of hip, unspecified laterality M25.559 [place] [address] [address] [facility] [id number] [address] [place] [address] October, Grief F43.20 ; Hypertension I10 ; Hyperlipidemia, unspecified hyperlipidemia type E78.5 ; Other chronic pain G89.29 and Allergic rhinitis, unspecified allergic rhinitis type J30.9 [facility] [address] [place] [id number] [address] [place] [address] October, Major depressive disorder, r ecurrent episode, moderate F33.1 [place] [id number] [place] [address] Sep, Major depressive disorder, r ecurrent episode, moderate F33.1 [place] [id number] [place] [address] Sep, [place] [address] [address] Sep, Major depressive disorder, r ecurrent episode, moderate F33.1 [place] [address] [address] Sep, Grief F43.20 [place] [id number] [place] [address] Aug, Major depressive disorder, r ecurrent episode, moderate F33.1 [place] [address] [address] Aug, Bipolar 1 disorder, mixed F3 1.60 [place] [address] [address] [place] [id number] [address] [place] [address] Aug, Allergic rhinitis J30.9 ; Ce rvicalgia M54.2 and Low back pain M54.5 [place] [address] [address] [place] [id number] [address] [place] [address] Aug, Major depressive disorder, r ecurrent episode, moderate F33.1 [facility] [address] [place] [id number] [address] [place] [address] Aug, Sinusitis J32.9 and Tobacco 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 [facility] [address] [address] Aug, [facility] [address] [id number] [address] [place] [address] Aug, Depressive disorder, not els ewhere classified F32.9 ; Hormone replacement therapy Z79.[address] scan, head R93.0 [facility] [address] [id number] [address] [place] [address] Aug, Major depressive disorder, r ecurrent episode, moderate F33.1 [facility] [address] [id number] [address] [place] [address] Jul, Major depressive disorder, r ecurrent episode, moderate F33.1 [facility] [address] [id number] [address] [place] [address] Jul, Abdominal pain R10.9 and Hyp ertension I10 [facility] [address] [id number] [address] [place] [address] Jul, [facility] [address] [id number] [address] [place] [address] Jul, Major depressive disorder, r ecurrent episode, moderate F33.1 [facility] [address] [id number] [address] [place] [address] Jul, [facility] [address] [id number] [address] [place] [address] Jul, [facility] [address] [id number] [address] [place] [address] Jun, [facility] [address] [id number] [address] [place] [address] Jun, Depressive disorder, not els ewhere classified F32.9 [facility] [address] [facility] [id number] [address] [place] [address] Jun, [facility] [address] [facility] [id number] [address] [place] [address] Jun, [place] [address] [id number] [address] [place] [address] Jun, Arthralgia of hip, unspecifi ed laterality M25.559 ; Bruising, spontaneous R23.3 and Night sweats R61 [facility] [address] [id number] [address] [place] [address] Jun, [facility] [address] [id number] [address] [place] [address] Jun, [facility] [address] [id number] [address] [place] [address] May, [facility] [address] [id number] [address] [place] [address] May, Myalgia M79.1 and Screening, lipid Z13.220 [facility] [address] [id number] [address] [place] [address] Apr, Status post cervical spinal fusion Z98.1 ; Fibromyalgia M79.7 and Unsteady gait R26.81 [facility] [address] [id number] [address] [place] [address] Nov, [facility] [address] [id number] [address] [place] [address] Nov, [facility] [address] [id number] [address] [place] [address] October, [facility] [address] [id number] [address] [place] [address] October, [facility] [address] [id number] [address] [place] [address] October, [facility] [address] [id number] [address] [place] [address] October, [facility] [address] [id number] [address] [place] [address] October, [facility] [address] [id number] [address] [place] [address] October, Dysuria 788.1 ; Nausea 787.0 2 and Urinary tract infection 599.0 [facility] [address] [id number] [address] [place] [address] 14 Sep, 2014 [facility] [address] [id number] [address] [place] [address] Sep, [facility] [address] [id number] [address] [place] [address] Aug, [facility] [address] [id number] [address] [place] [address] Aug, [facility] [address] [id number] [address] [place] [address] 24 Aug, 2014 [facility] [address] [id number] [address] [place] [address] 24 Aug, 2014 [facility] [address] [id number] [address] [place] [address] Aug, [facility] [address] [id number] [address] [place] [address] Aug, [facility] [address] [id number] [address] [place] [address] Aug, [facility] [address] [id number] [address] [place] [address] 19 Aug, 2014 [facility] [address] [id number] [address] [place] [address] 19 Aug, 2014 [facility] [address] [id number] [address] [place] [address] 18 Aug, 2014 [facility] [address] [id number] [address] [place] [address] 18 Aug, 2014 [facility] [address] [id number] [address] [place] [address] 13 Aug, 2014 [facility] [address] [id number] [address] [place] [address] [place] [address] 13 Aug, 2014 [facility] [address] [id number] [address] [place] [address], [place] [address] Aug, 2014 [facility] [address] [id number] [address] [place] [address], [place] [address] Aug, [facility] [address] [id number] [address] [place] [address], [place] [address] Aug, 2014 [facility] [address] [id number] [address] [place] [address], [place] [address] 06 Aug, 2014 [facility] [address] [id number] [address] [place] [address], [place] [address] Aug, [facility] [address] [id number] [address] [place] [address], [place] [address] Aug, 2014 [facility] [address] [id number] [address] [place] [address], [place] [address] Aug, [facility] [address] [id number] [address] [place] [address], [place] [address] Aug, [facility] [address] [id number] [address] [place] [address], [place] [address] Aug, [facility] [address] [id number] [address] [place] [address], [place] [address] Jul, [facility] [address] [id number] [address] [place] [address], [place] [address] Jul, 2014 [facility] [address] [id number] [address] [place] [address], [place] [address] Jul, 2014 [facility] [address] [id number] [address] [place] [address], [place] [address] Jul, 2014 [facility] [address] [id number] [address] [place] [address], [place] [address] Jul, 2014 [facility] [address] [id number] [address] [place] [address], [place] [address] Jul, 2014 [facility] [address] [id number] [address] [place] [address], [place] [address] Jul, 2014 [facility] [address] [id number] [address] [place] [address], [place] [address] Jul, 2014 [facility] [address] [id number] [address] [place] [address], [place] [address] Jul, 2014 [facility] [address] [id number] [address] [place] [address], [place] [address] Jul, 2014 [facility] [address] [id number] [address] [place] [address], [place] [address] Jul, [facility] [address] [id number] [address] [place] [address], [place] [address] Jul, 2014 [facility] [address] [id number] [address] [place] [address], [place] [address] Jul, [facility] [address] [id number] [address] [place] [address], [place] [address] Jul, [facility] [address] [id number] [address] [place] [address], [place] [address] Jun, [facility] [address] [id number] [address] [place] [address], [place] [address] Jun, [facility] [address] [id number] [address] [place] [address], [place] [address] Jun, [facility] [address] [id number] [address] [place] [address], [place] [address] Jun, [facility] [address] [id number] [address] [place] [address], [place] [address] Jun, [facility] [address] [id number] [address] [place] [address], [place] [address] Jun, [facility] [address] [id number] [address] [place] [address], [place] [address] May, [facility] [address] [id number] [address] [place] [address], [place] [address] May, [facility] [address] [id number] [address] [place] [address], [place] [address] May, [facility] [address] [id number] [address] [place] [address], [place] [address] May, [facility] [address] [id number] [address] [place] [address], [place] [address] May, [facility] [address] [id number] [address] [place] [address], [place] [address] May, [facility] [address] [id number] [address] [place] [address], [place] [address] Apr, [facility] [address] [id number] [address] [place] [address], [place] [address] Apr, [facility] [address] [id number] [address] [place] [address], [place] [address] Apr, [facility] [address] [id number] [address] [place] [address], [place] [address] Apr, [facility] [address] [id number] [address] [place] [address], [place] [address] Apr, [facility] [address] [id number] [address] [place] [address], [place] [address] Apr, [facility] [address] [id number] [address] [place] [address], [place] [address] Mar, [facility] [address] [id number] [address] [place] [address], [place] [address] Mar, [facility] [address] [id number] [address] [place] [address], [place] [address] Mar, [facility] [address] [id number] [address] [place] [address], [place] [address] Mar, [facility] [address] [id number] [address] [place] [address], [place] [address] Mar, [facility] [address] [id number] [address] [place] [address], [place] [address] Mar, [facility] [address] [id number] [address] [place] [address], [place] [address] Mar, [facility] [address] [id number] [address] [place] [address], [place] [address] Mar, [facility] [address] [id number] [address] [place] [address], [place] [address] Mar, [facility] [address] [id number] [address] [place] [address], [place] [address] Mar, [facility] [address] [id number] [address] [place] [address], [place] [address] Mar, [facility] [address] [id number] [address] [place] [address], [place] [address] Mar, [facility] [address] [id number] [address] [place] [address], [place] [address] 30 Feb, 2013 [facility] [address] [id number] [address] [place] [address], [place] [address] 29 Feb, 2013 [facility] [address] [id number] [address] [place] [address], [place] [address] 29 Feb, 2013 [facility] [address] [id number] [address] [place] [address], [place] [address] 23 Feb, 2013 [facility] [address] [id number] [address] [place] [address] 23 Feb, 2013 [facility] [address] [id number] [address] [place] [address], [place] [address] 08 Feb, 2013 [facility] [address] [id number] [address] [place] [address], [place] [address] 08 Feb, 2013 [facility] [address] [id number] [address] [place] [address], [place] [address] Jan, [facility] [address] [id number] [address] [place] [address], [place] [address] Jan, [facility] [address] [id number] [address] [place] [address], [place] [address] Jan, [facility] [address] [id number] [address] [place] [address], [place] [address] Dec, [facility] [address] [id number] [address] [place] [address], [place] [address] Dec, [facility] [address] [id number] [address] [place] [address], [place] [address] Dec, [facility] [address] [id number] [address] [place] [address], [place] [address] Dec, [facility] [address] [id number] [address] [place] [address], [place] [address] Sep, [facility] [address] [id number] [address] [place] [address], [place] [address] Sep, [facility] [address] [id number] [address] [place] [address], [place] [address] Sep, [facility] [address] [id number] [address] [place] [address], [place] [address] Sep, [facility] [address] [id number] [address] [place] [address], [place] [address] Sep, [facility] [address] [id number] [address] [place] [address], [place] [address] Sep, [facility] [address] [id number] [address] [place] [address], [place] [address] Sep, [facility] [address] [id number] [address] [place] [address], [place] [address] Sep, [facility] [address] [id number] [address] [place] [address], [place] [address] Aug, [facility] [address] [id number] [address] [place] [address], [place] [address] Aug, [facility] [address] [id number] [address] [place] [address], [place] [address] May, [facility] [address] [id number] [address] [place] [address], [place] [address] May, [facility] [address] [id number] [address] [place] [address], [place] [address] Apr, [facility] [address] [id number] [address] [place] [address], [place] [address] Apr, [facility] [address] [id number] [address] [place] [address], [place] [address] Apr, [facility] [address] [id number] [address] [place] [address], [place] [address] Apr, [facility] [address] [id number] [address] [place] [address], [place] [address] Apr, [facility] [address] [id number] [address] [place] [address], [place] [address] Apr, [facility] [address] [id number] [address] [place] [address], [place] [address] May, [facility] [address] [id number] [address] [place] [address], [place] [address] 18 May, 2012 [facility] [address] [id number] [address] [place] [address], [place] [address] 15 May, 2012 [facility] [address] [id number] [address] [place] [address], [place] [address] 15 May, 2012 [facility] [address] [id number] [address] [place] [address], [place] [address] 13 May, 2012 [facility] [address] [id number] [address] [place] [address], [place] [address] 13 May, 2012 [facility] [address] [id number] [address] [place] [address], [place] [address] 13 Apr, 2012 [facility] [address] [id number] [address] [place] [address], [place] [address] Apr, [facility] [address] [id number] [address] [place] [address], [place] [address] 08 Apr, 2012 [facility] [address] [id number] [address] [place] [address], [place] [address] Apr, [facility] [address] [id number] [address] [place] [address], [place] [address] Apr, [facility] [address] [id number] [address] [place] [address], [place] [address] Apr, [facility] [address] [id number] [address] [place] [address], [place] [address] Apr, [facility] [address] [id number] [address] [place] [address], [place] [address] Apr, [facility] [address] [id number] [address] [place] [address], [place] [address] Apr, [facility] [address] [id number] [address] [place] [address] Apr, [facility] [address] [id number] [address] [place] [address], [place] [address] Mar, [facility] [address] [id number] [address] [place] [address] Mar, [facility] [address] [id number] [address] [place] [address] Mar, [facility] [address] [id number] [address] [place] [address] Mar, [facility] [address] [id number] [address] [place] [address], [place] [address] Mar, [facility] [address] [id number] [address] [place] [address] Mar, [facility] [address] [id number] [address] [place] [address] Mar, [facility] [address] [id number] [address] [place] [address], [place] [address] Mar, [facility] [address] [id number] [address] [place] [address], [place] [address] Mar, [facility] [address] [id number] [address] [place] [address], [place] [address] 25 Feb, 2012 [facility] [address] [id number] [address] [place] [address], [place] [address] 16 Feb, 2012 [facility] [address] [id number] [address] [place] [address], [place] [address] 11 Feb, 2012 [facility] [address] [id number] [address] [place] [address], [place] [address] Jan, [facility] [address] [id number] [address] [place] [address], [place] [address] Jan, [facility] [address] [id number] [address] [place] [address], [place] [address] Jan, [facility] [address] [id number] [address] [place] [address], [place] [address] Jan, [facility] [address] [id number] [address] [place] [address], [place] [address] Jan, [facility] [address] [id number] [address] [place] [address], [place] [address] Jan, [facility] [address] [id number] [address] [place] [address], [place] [address] 16 Jan, 2012 [facility] [address] [id number] [address] [place] [address], [place] [address] Jan, [facility] [address] [id number] [address] [place] [address], [place] [address] Jan, [facility] [address] [id number] [address] [place] [address], [place] [address] Jan, [facility] [address] [id number] [address] [place] [address], [place] [address] Dec, [facility] [address] [id number] [address] [place] [address], [place] [address] Dec, [facility] [address] [id number] [address] [place] [address], [place] [address] Dec, [facility] [address] [id number] [address] [place] [address], [place] [address] Dec, [facility] [address] [id number] [address] [place] [address], [place] [address] Nov, [facility] [address] [id number] [address] [place] [address], [place] [address] Nov, [facility] [address] [id number] [address] [place] [address], [place] [address] Nov, [facility] [address] [id number] [address] [place] [address], [place] [address] October, [facility] [address] [id number] [address] [place] [address], [place] [address] October, [facility] [address] [id number] [address] [place] [address], [place] [address] October, [facility] [address] [id number] [address] [place] [address], [place] [address] October, [facility] [address] [id number] [address] [place] [address], [place] [address] October, [facility] [address] [id number] [address] [place] [address], [place] [address] October, [facility] [address] [id number] [address] [place] [address], [place] [address] Aug, [facility] [address] [id number] [address] [place] [address], [place] [address] Mar, [facility] [address] [id number] [address] [place] [address], [place] [address] 16 Nov, 2010 [facility] [address] [id number] [address] [address] May, [facility] [address] [facility] [id number] [address] [place] [address] May, [facility] [address] [facility] [id number] [address] [place] [address] Apr, [facility] [address] [facility] [id number] [address] [place] [address] Mar, [facility] [address] [facility] [id number] [address] [place] [address] Mar, IMMUNIZATIONS No Known Immunizations SOCIAL HISTORY Never Assessed REASON FOR VISIT BH f/u PLAN OF CARE Activity Details Follow Up 1 Week Reason: F/U VITAL SIGNS MEDICATIONS Unknown Medications RESULTS No Results PROCEDURES Procedure Date Ordered Result Body Site [facility] VISIT MENTAL HEALTH ESTAB PT Mar 20, 2017 Psychotherapy, patient &/family, 45 minutes, established patient Mar 20, 2017 INSTRUCTIONS MEDICATIONS ADMINISTERED No Known Medications MEDICAL (GENERAL) HISTORY Type Description Date Medical History Severe spinal stenosis [facility] cervical spine CT and MRI done [...]
--- OUTSIDE RECORDS SUMMARY | 2019-06-19 06:01 | XMS REPORT ---
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 Name Role Phone MIRIAN SQUIRES Unavailable PROBLEMS Type Condition ICD9-CM Code [id number] Code Onset Dates Condition S tatus SNOMED Code Problem Hormone replacement therapy Z79.890 Ac tive 797947334 Problem Abnormal CT scan, head R93.0 Active 635788222 Problem Sensorineural hearing loss (SNHL) of both ears H90 .3 Active 231889829 Problem History of colon polyps Z86.010 Active 204479967 Problem Bruising, spontaneous R23.3 Active 844192366 Problem Generalized anxiety disorder F41.1 A ctive 45128859 Problem Arthralgia of hip, unspecified laterality M25.559 Active 40962929 Problem Hematuria, unspecified type R31.9 Ac tive 76787143 Problem Imbalance R26.89 Active 426476364 Problem Hammer toe of right foot M20.41 Activ e 300747715 Problem Plantar wart of right foot B07.0 Act mitchell [id number] Problem Sciatica of left side M54.32 Active 64174419 Problem Hyperlipidemia, unspecified hyperlipidemia type E7 8.5 Active 61839376 Problem Hypertension I10 Active 0484669 3 Problem Night sweats R61 Active 4747721 0 Problem Fibromyalgia M79.7 Active 8979131 7 Problem Major depressive disorder, recurrent episode, moderate F33.1 Active 108330407 Problem Acute left-sided low back pain with left-sided sciatica M54.42 Active 287753390 Problem Bladder spasm N32.89 Active 224138 006 Problem Gastritis without bleeding, unspecified chronicity, unspecified gastritis type K29.70 Active 003597379 Problem Bipolar 1 disorder, mixed F31.60 Acti ve 65412796 Problem Grief F43.20 Active 93015625 Problem Other chronic pain G89.29 Active 8 9446707 Problem Allergic rhinitis J30.9 Active 61 875506 Problem Hot flashes due to menopause N95.1 A ctive 950804740 Problem Ataxia R27.0 Active 96187044 Problem Hearing loss, unspecified laterality H91.90 Active 72790635 ALLERGIES No Information ENCOUNTERS Encounter Location Date Diagnosis [facility] [address] [facility] [id number] [address] [place] [phone] Dec, [facility] [address] [facility] [id number] [address] [place] [id number] Nov, [facility] [address] [facility] [id number] [address] [place] [id number] October, [facility] [address] [facility] [id number] [address] [place] [id number] October, [facility] [address] [facility] [id number] [address] [place] [id number] October, [facility] [address] [facility] [id number] [address] [place] [id number] October, [facility] [address] [facility] [id number] [address] [place] [id number] October, Bipolar 1 disorder, mixed F3 1.60 [facility] [address] [facility] [id number] [address] [place] [id number] Sep, Bipolar 1 disorder, mixed F3 1.60 [facility] [address] [facility] [id number] [address] [place] [id number] Sep, Other chronic pain G89.29 [facility] [address] [facility] [id number] [address] [place] [phone] Sep, [facility] [address] [facility] [id number] [address] [place] [id number] Sep, Bipolar 1 disorder, mixed F3 1.60 [facility] [address] [facility] [id number] [address] [place] [id number] Sep, Allergic rhinitis J30.9 and Sciatica of left side M54.32 [facility] [address] [facility] [id number] [address] [place] [id number] Sep, Bipolar 1 disorder, mixed F3 1.60 [facility] [address] [facility] [id number] [address] [place] [id number] Sep, Bipolar 1 disorder, mixed F3 1.60 and Generalized anxiety disorder F41.1 [facility] [address] [facility] [id number] [address] [place] [id number] Aug, [facility] [address] [facility] [id number] [address] [place] [id number] Aug, Bipolar 1 disorder, mixed F3 1.60 [facility] [address] [facility] [id number] [address] [place] [id number] Aug, Bipolar 1 disorder, mixed F3 1.60 [facility] [address] [place] [id number] [address] [place] [id number] Aug, [facility] [address] [place] [id number] [address] [place] [id number] Aug, Generalized anxiety disorder F41.1 [facility] [address] [facility] [id number] [address] [place] [id number] Aug, Bipolar 1 disorder, mixed F3 1.60 [facility] [address] [facility] [id number] [address] [place] [id number] Aug, Plantar wart of right foot B 07.0 [facility] [address] [facility] [id number] [address] [place] [id number] Aug, Bipolar 1 disorder, mixed F3 1.60 [facility] [address] [facility] [id number] [address] [place] [id number] Jul, Bipolar 1 disorder, mixed F3 1.60 [facility] [address] [facility] [id number] [address] [place] [id number] Jul, [facility] [address] [place] [id number] [address] [place] [id number] 14 Jul, 2017 Bipolar 1 disorder, mixed F3 1.60 [facility] [address] [facility] [id number] [address] [place] [id number] 09 Jul, 2017 Generalized anxiety disorder F41.1 [facility] [address] [place] [id number] [address] [place] [id number] Jul, Bipolar 1 disorder, mixed F3 1.60 [facility] [address] [place] [id number] [address] [place] [id number] Jul, Acute left-sided low back pa in with left-sided sciatica M54.42 [facility] [address] [place] [id number] [address] [place] [id number] Jul, Coccydynia M53.3 [facility] [address] [place] [id number] [address] [place] [id number] Jun, Bipolar 1 disorder, mixed F3 1.60 [facility] [address] [place] [id number] [address] [place] [phone] Jun, Acute nasopharyngitis J00 [facility] [address] [place] [id number] [place] [address] Jun, Bipolar 1 disorder, mixed F3 1.60 [facility] [address] [place] [id number] [address] [place] [id number] Jun, Fibromyalgia M79.7 [facility] [address] [place] [id number] [address] [place] [id number] Jun, Bipolar 1 disorder, mixed F3 1.60 [facility] [address] [place] [id number] [address] [place] [id number] Jun, Fibromyalgia M79.7 and Bipol ar 1 disorder, mixed F31.60 [facility] [address] [place] [id number] [address] [place] [id number] May, Bipolar 1 disorder, mixed F3 1.60 ; Generalized anxiety disorder F41.1 and 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 [facility] [address] [place] [id number] [address] [place] [id number] May, Bipolar 1 disorder, mixed F3 1.60 [facility] [address] [place] [id number] [address] [place] [id number] 14 May, 2017 Cough R05 and Body aches R52 [facility] [address] [place] [id number] [place] [phone] 10 May, 2017 Bladder spasm N32.89 and Acu te cystitis without hematuria N30.00 [place] [address] [address] 07 May, 2017 Bipolar 1 disorder, mixed F3 1.60 [place] [address] [address] 30 Apr, 2017 [place] [address] [address] Apr, Major depressive disorder, r ecurrent episode, moderate F33.1 and Encounter for immunization Z23 [place] [address] [id number] Apr, Bipolar 1 disorder, mixed F3 1.60 [place] [id number] [address] Apr, Bipolar 1 disorder, mixed F3 1.60 [place] [address] [address] 16 Apr, 2017 Bipolar 1 disorder, mixed F3 1.60 [place] [id number] [place] [id number] 13 Apr, 2017 Yeast vaginitis B37.3 [place] [address] [place] [id number] [address] [place] [id number] 09 Apr, 2017 Bipolar 1 disorder, mixed F3 1.60 [facility] [address] [place] [id number] [address] [place] [id number] 07 Apr, 2017 [address]ulitis L03.[address] for immunization Z23 [facility] [address] [place] [id number] [address] [place] [address] Apr, Bipolar 1 disorder, mixed F3 1.60 [facility] [address] [place] [id number] [address] [place] [address] Mar, Bipolar 1 disorder, mixed F3 1.60 [facility] [address] [place] [id number] [address] [place], [place] [id number] Mar, Bipolar 1 disorder, mixed F3 1.60 [facility] [address] [place] [id number] [address] [place] [id number] Mar, Imbalance R26.89 [address] Encount er for immunization Z23 [facility] [address] [place] [id number] [address] [place] [address] Mar, Generalized anxiety disorder F41.1 [place] [address] [place] [id number] [address] [place] [address] Mar, Bipolar 1 disorder, mixed F3 1.60 [place] [address] [place] [id number] [address] [place] [address] Mar, Generalized anxiety disorder F41.1 [place] [address] [place] [id number] [address] [place] [address] Mar, Bipolar 1 disorder, mixed F3 1.60 [facility] [address] [place] [id number] [address] [place] [address] Mar, Bipolar 1 disorder, mixed F3 1.60 [facility] [address] [place] [id number] [address] [place] [id number] Feb, Bipolar 1 disorder, mixed F3 1.60 [facility] [address] [place] [id number] [address] [place], [place] [address] Feb, Bipolar 1 disorder, mixed F3 1.60 and Generalized anxiety disorder F41.1 [facility] [address] [place] [id number] [address] [place] [id number] Feb, Gastritis without bleeding, unspecified chronicity, unspecified gastritis type K29.70 ; Hammer toe of right foot M20.41 and Other viral warts B07.8 [place] [address] [facility] [id number] [address] [place] [id number] Feb, Bipolar 1 disorder, mixed F3 1.60 [place] [address] [facility] [id number] [address] [place] [id number] Feb, Bipolar 1 disorder, mixed F3 1.60 [place] [address] [facility] [id number] [address] [place] [id number] Feb, Bipolar 1 disorder, mixed F3 1.60 [place] [address] [facility] [id number] [address] [place] [id number] Jan, Encounter for screening mamm ogram for breast cancer Z12.31 ; Other viral warts B07.8 and Allergic rhinitis J30.9 [place] [address] [facility] [id number] [address] [place] [id number] Jan, Bipolar 1 disorder, mixed F3 1.60 [place] [address] [facility] [id number] [address] [place] [id number] Jan, Bipolar 1 disorder, mixed F3 1.60 [place] [address] [facility] [id number] [address] [place] [id number] Jan, [place] [address] [facility] [id number] [address] [place] [address] Jan, Bipolar 1 disorder, mixed F3 1.60 [place] [address] [facility] [id number] [address] [place] [id number] Jan, Bipolar 1 disorder, mixed F3 1.60 [place] [address] [facility] [id number] [address] [place] [id number] Jan, Allergic rhinitis J30.9 ; He maturia R31.9 and Colon cancer screening Z12.11 [place] [address] [facility] [id number] [address] [place] [address] Dec, Bipolar 1 disorder, mixed F3 1.60 [facility] [address] [id number] [address] [place] [id number] Dec, Bipolar 1 disorder, mixed F3 1.60 ; Generalized anxiety disorder F41.1 and 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 [facility] [address] [id number] [address] [place] [phone] Dec, Bipolar 1 disorder, mixed F3 1.60 [facility] [address] [id number] [address] [place] [id number] Dec, Bipolar 1 disorder, mixed F3 1.60 [facility] [address] [facility] [id number] [address] [place] [id number] Dec, Bipolar 1 disorder, mixed F3 1.60 [facility] [address] [facility] [id number] [address] [place] [id number] Dec, Low back pain M54.5 and Recu rrent urinary tract infection N39.0 [facility] [address] [id number] [address] [place] [id number] Nov, Bipolar 1 disorder, mixed F3 1.60 [facility] [address] [facility] [id number] [address] [place] [id number] Nov, Bipolar 1 disorder, mixed F3 1.60 [facility] [address] [facility] [id number] [address] [place] [id number] Nov, Bipolar 1 disorder, mixed F3 1.60 [facility] [address] [id number] [address] [place] [id number] Nov, Bipolar 1 disorder, mixed F3 1.60 [facility] [address] [facility] [id number] [address] [place] [id number] Nov, [facility] [address] [facility] [id number] [address] [place] [address] Nov, Anesthesia of skin R20.0 ; F requent UTI N39.0 ; Tobacco abuse Z72.0 and Colon cancer screening Z12.11 [facility] [address] [place] [id number] [address] [place] [address] Nov, Bipolar 1 disorder, mixed F3 1.60 [facility] [address] [place] [id number] [address] [place] [address] October, Bipolar 1 disorder, mixed F3 1.60 [place] [address] [place] [id number] [place] [address] October, Bipolar 1 disorder, mixed F3 1.60 [place] [address] [place] [id number] [address] [place] [id number] October, Bipolar 1 disorder, mixed F3 1.60 [place] [address] [place] [id number] [address] [place] [id number] October, Bipolar 1 disorder, mixed F3 1.60 [place] [address] [address] October, Bipolar 1 disorder, mixed F3 1.60 [place] [address] [place] [id number] [address] [place] [address] October, Cervicalgia M54.2 and Bipola r 1 disorder, mixed F31.60 [place] [address] [place] [id number] [address] [place] [id number] October, Hypertension I10 ; Hyperlipi demia, unspecified hyperlipidemia type E78.5 and Family history of thyroid disease Z83.49 [place] [address] [place] [id number] [address] [place] [address] October, [place] [address] [place] [id number] [place] [address] October, Hypertension I10 ; Hyperlipi demia, unspecified hyperlipidemia type E78.5 and Family history of thyroid problem Z83.49 [place] [address] [place] [id number] [address] [place] [address] October, Bipolar 1 disorder, mixed F3 1.60 [facility] [address] [facility] [id number] [address] [place] [address] Sep, Bipolar 1 disorder, mixed F3 1.60 [facility] [address] [facility] [id number] [address] [place] [address] Sep, Bipolar 1 disorder, mixed F3 1.60 [facility] [address] [facility] [id number] [address] [place] [id number] Sep, Bipolar 1 disorder, mixed F3 1.60 [facility] [address] [facility] [id number] [address] [place] [address] Sep, History of colon polyps Z86. 010 and Hematochezia K92.1 [facility] [address] [facility] [id number] [address] [place] [id number] Sep, Major depressive disorder, r ecurrent episode, moderate F33.1 [place] [address] [place] [id number] [address] [place] [id number] Sep, Bipolar 1 disorder, mixed F3 1.60 [facility] [address] [facility] [id number] [address] [place] [address] Aug, Hot flashes due to menopause N95.1 [facility] [address] [facility] [id number] [address] [place] [address] Aug, Bipolar 1 disorder, mixed F3 1.60 [facility] [address] [facility] [id number] [address] [place] [id number] Aug, [facility] [address] [facility] [id number] [address] [place] [address] Aug, Bipolar 1 disorder, mixed F3 1.60 [facility] [address] [facility] [id number] [address] [place] [address] Aug, Bipolar 1 disorder, mixed F3 1.60 [facility] [address] [facility] [id number] [address] [place] [address] Aug, Hot flashes due to menopause N95.1 ; Cervicalgia M54.2 and Ataxia R27.0 [place] [address] [address] Jul, Bipolar 1 disorder, mixed F3 1.60 [place] [address] Jul, Bipolar 1 disorder, mixed F3 1.60 [place] [address] Jul, Bipolar 1 disorder, mixed F3 1.60 [place] [address] Jul, Bipolar 1 disorder, mixed F3 1.60 [place] [address] Jul, Bipolar 1 disorder, mixed F3 1.60 [place] [address] [address] Jul, Cervicalgia M54.2 ; Tremor R 25.1 ; Hearing abnormally acute, unspecified laterality H93.239 ; Alopecia L65.9 ; Encounter for immunization Z23 and Family history of thyroid disease Z83.49 [place] [address] [address] Jul, Bipolar 1 disorder, mixed F3 1.60 [place] [address] [address] Jun, [place] [address] Jun, Hearing disorder, unspecifie d laterality H93.299 [place] [address] [place] [address] Jun, Bipolar 1 disorder, mixed F3 1.60 [place] [address] [address] Jun, Bipolar 1 disorder, mixed F3 1.60 [facility] [address] [id number] [address] [place] [address] Jun, Allergic rhinitis J30.9 [facility] [address] [id number] [address] [place] [id number] Jun, Bipolar 1 disorder, mixed F3 1.60 [facility] [address] [id number] [address] [place] [id number] Jun, Bipolar 1 disorder, mixed F3 1.60 [facility] [address] [id number] [address] [place] [id number] Jun, Allergic rhinitis J30.9 [facility] [address] [id number] [address] [place] [address] Jun, Allergic rhinitis J30.9 [facility] [address] [facility] [id number] [address] [place] [id number] Jun, Bipolar 1 disorder, mixed F3 1.60 [facility] [address] [id number] [address] [place] [address] May, Bipolar 1 disorder, mixed F3 1.60 [facility] [address] [id number] [address] [place] [id number] May, Bipolar 1 disorder, mixed F3 1.60 [facility] [address] [facility] [id number] [address] [place] [id number] May, [facility] [address] [facility] [id number] [address] [place] [id number] May, Bipolar 1 disorder, mixed F3 1.60 [facility] [address] [id number] [address] [place] [id number] May, Bipolar 1 disorder, mixed F3 1.60 [facility] [address] [facility] [id number] [address] [place] [phone] May, [facility] [address] [facility] [id number] [address] [place] [phone] May, [facility] [address] [facility] [id number] [address] [place] [phone] May, [facility] [address] [facility] [id number] [address] [place] [phone] May, Abdominal pain, unspecified location R10.9 [facility] [address] [facility] [id number] [address] [place] [phone] May, [facility] [address] [place] [id number] [address] [place] [id number] Apr, Hematuria R31.9 ; Ataxia R27 .0 and Hearing loss, unspecified laterality H91.90 [facility] [address] [facility] [id number] [address] [place] [phone] Apr, Bipolar 1 disorder, mixed F3 1.60 [facility] [address] [facility] [id number] [address] [place] [id number] Apr, Acute effusion of both middl e ears H65.193 [facility] [address] [facility] [id number] [address] [place] [id number] Apr, Hematuria R31.9 and Pyelonep hritis N12 [facility] [address] [facility] [id number] [address] [place] [phone] Apr, [facility] [address] [place] [id number] [address] [place] [id number] Mar, Bipolar 1 disorder, mixed F3 1.60 [facility] [address] [facility] [id number] [address] [place] [id number] Mar, [facility] [address] [facility] [id number] [address] [place] [id number] Mar, Bipolar 1 disorder, mixed F3 1.60 [facility] [address] [facility] [id number] [address] [place] [address] Mar, Bipolar 1 disorder, mixed F3 1.60 [facility] [address] [place] [id number] [address] [place] [address] Mar, Encounter for immunization Z 23 and Gastritis without bleeding, unspecified chronicity, unspecified gastritis type K29.70 [place] [address] [place] [address] Mar, Bipolar 1 disorder, mixed F3 1.60 and Grief F43.20 [place] [address] [place] [address] Mar, Gastritis without bleeding, unspecified chronicity, unspecified gastritis type K29.70 [place] [address] Mar, Bipolar 1 disorder, mixed F3 1.60 [place] [address] Mar, Gastritis without bleeding, unspecified chronicity, unspecified gastritis type K29.70 [place] [address] [place] [address] Mar, [place] [address] [address] Feb, Bipolar 1 disorder, mixed F3 1.60 [place] [address] [place] [address] Feb, Bipolar 1 disorder, mixed F3 1.60 and Grief F43.20 [place] [address] [place] [address] Feb, Gastritis without bleeding, unspecified chronicity, unspecified gastritis type K29.70 [place] [address] [address] 14 Feb, 2016 Bipolar 1 disorder, mixed F3 1.60 [facility]ALK IN [facility] [address] [place] [id number] [place], [place] [id number] 09 Feb, 2016 Gastroesophageal reflux dise ase, esophagitis presence not specified K21.9 [place] [address] [place] [address] Jan, Bipolar 1 disorder, mixed F3 1.60 [facility] [address] [facility] [id number] [address] [place] [address] Jan, Bipolar 1 disorder, mixed F3 1.60 and Unsteady gait R26.81 [facility] [address] [facility] [id number] [address] [place] [address] Jan, Bipolar 1 disorder, mixed F3 1.60 [facility] [address] [facility] [id number] [address] [place] [address] Jan, Bipolar 1 disorder, mixed F3 1.60 and 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 [place] [address] [facility] [id number] [address] [place] [address] Jan, Bipolar 1 disorder, mixed F3 1.60 [place] [address] [place] [id number] [address] [place] [address] Jan, Bipolar 1 disorder, mixed F3 1.60 [place] [address] [facility] [id number] [address] [place] [address] Jan, Bipolar 1 disorder, mixed F3 1.60 ; Grief F43.20 and 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 [place] [address] [place] [id number] [address] [place] [address] Jan, Bipolar 1 disorder, mixed F3 1.60 [place] [address] [facility] [id number] [address] [place] [address] Dec, [place] [address] [facility] [id number] [address] [place] [address] Dec, Bipolar 1 disorder, mixed F3 1.60 ; Vitamin D deficiency, unspecified E55.9 ; H/O allergic rhinitis Z87.09 ; Other chronic pain G89.29 and Dorsalgia, unspecified M54.9 [facility] [address] [facility] [id number] [address] [place] [id number] Dec, [place] [address] [facility] [id number] [address] [place] [address] Dec, Bipolar 1 disorder, mixed F3 1.60 [facility] [address] [facility] [id number] [address] [place] [address] Dec, Major depressive disorder, r ecurrent episode, moderate F33.1 [place] [address] [facility] [id number] [address] [place] [address] Dec, Major depressive disorder, r ecurrent episode, moderate F33.1 [place] [address] [facility] [id number] [address] [place] [id number] Nov, [place] [address] [facility] [id number] [address] [place] [address] Nov, Bipolar 1 disorder, mixed F3 1.60 [place] [address] [facility] [id number] [address] [place] [address] Nov, Major depressive disorder, r ecurrent episode, moderate F33.1 [place] [address] [facility] [id number] [address] [place] [address] Nov, Cervicalgia M54.2 ; Arthralg ia of hip, unspecified laterality M25.559 ; Allergic rhinitis J30.9 and Hormone replacement therapy Z79.890 [facility] IN [facility] [address] [facility] [id number] [address] [place] [address] Nov, Other seasonal allergic rhin itis J30.2 [facility] [address] [facility] [id number] [address] [place] [address] October, Major depressive disorder, r ecurrent episode, moderate F33.1 [facility] [address] [facility] [id number] [address] [place] [address] October, Major depressive disorder, r ecurrent episode, moderate F33.1 and Arthralgia of hip, unspecified laterality M25.559 [place] [address] [facility] [id number] [address] [place] [address] October, Grief F43.20 ; Hypertension I10 ; Hyperlipidemia, unspecified hyperlipidemia type E78.5 ; Other chronic pain G89.29 and Allergic rhinitis, unspecified allergic rhinitis type J30.9 [place] [address] [facility] [id number] [address] [place] [address] October, Major depressive disorder, r ecurrent episode, moderate F33.1 [place] [address] [facility] [id number] [address] [place] [id number] Sep, Major depressive disorder, r ecurrent episode, moderate F33.1 [place] [address] [facility] [id number] [address] [place] [address] Sep, [place] [address] [place] [id number] [place] [address] Sep, Major depressive disorder, r ecurrent episode, moderate F33.1 [place] [address] [place] [id number] [address] [place] [address] Sep, Grief F43.20 [facility] [address] [facility] [id number] [address] [place] [address] Aug, Major depressive disorder, r ecurrent episode, moderate F33.1 [place] [id number] [place] [address] Aug, Bipolar 1 disorder, mixed F3 1.60 [place] [id number] [place] [address] Aug, Allergic rhinitis J30.9 ; Ce rvicalgia M54.2 and Low back pain M54.5 [facility] [address] [place] [id number] [address] [place] [id number] Aug, Major depressive disorder, r ecurrent episode, moderate F33.1 [facility] WALK IN [facility] [address] [place] [id number] [address] [place] [id number] Aug, Sinusitis J32.9 and Tobacco 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 [facility] [address] [place] [id number] [address] [place] [address] Aug, [facility] [address] [id number] [address] [place] [address] Aug, Depressive disorder, not els ewhere classified F32.9 ; Hormone replacement therapy Z79.[address] scan, head R93.0 [facility] [address] [id number] [address] [place] [address] Aug, Major depressive disorder, r ecurrent episode, moderate F33.1 [facility] [address] [id number] [address] [place] [address] Jul, Major depressive disorder, r ecurrent episode, moderate F33.1 [facility] [address] [id number] [address] [place] [address] Jul, Abdominal pain R10.9 and Hyp ertension I10 [facility] [address] [id number] [address] [place] [address] Jul, [facility] [address] [id number] [address] [place] [address] Jul, Major depressive disorder, r ecurrent episode, moderate F33.1 [facility] [address] [id number] [address] [place] [id number] Jul, [facility] [address] [id number] [address] [place] [id number] Jul, [facility] [address] [id number] [address] [place] [id number] Jun, [facility] [address] [id number] [address] [place] [address] Jun, Depressive disorder, not els ewhere classified F32.9 [facility] [address] [id number] [address] [place] [address] Jun, [facility] [address] [id number] [address] [place] [id number] Jun, [facility] [address] [id number] [address] [place] [address] Jun, Arthralgia of hip, unspecifi ed laterality M25.559 ; Bruising, spontaneous R23.3 and Night sweats R61 [facility] [address] [id number] [address] [place] [id number] Jun, [facility] [address] [id number] [address] [place] [id number] Jun, [facility] [address] [id number] [address] [place] [address] May, [facility] [address] [id number] [address] [place] [address] May, Myalgia M79.1 and Screening, lipid Z13.220 [facility] [address] [id number] [address] [place] [id number] Apr, Status post cervical spinal fusion Z98.1 ; Fibromyalgia M79.7 and Unsteady gait R26.81 [facility] [address] [id number] [address] [place] [id number] Nov, [facility] [address] [id number] [address] [place] [id number] Nov, [facility] [address] [id number] [address] [place] [id number] October, [facility] [address] [id number] [address] [place] [id number] October, [facility] [address] [id number] [address] [place] [address] October, [facility] [address] [id number] [address] [place] [id number] October, [facility] [address] [id number] [address] [place] [id number] October, [facility] [address] [id number] [address] [place] [id number] October, Dysuria 788.1 ; Nausea 787.0 2 and Urinary tract infection 599.0 [facility] [address] [id number] [address] [place] [id number] 14 Sep, 2014 [facility] [address] [id number] [address] [place] [phone] Sep, [facility] [address] [id number] [address] [place] [id number] Aug, [facility] [address] [id number] [address] [place] [phone] Aug, [facility] [address] [id number] [address] [place] [id number] 24 Aug, 2014 [facility] [address] [id number] [address] [place] [id number] 24 Aug, 2014 [facility] [address] [id number] [address] [place] [phone] Aug, [facility] [address] [id number] [address] [place] [id number] Aug, [facility] [address] [id number] [address] [place] [phone] Aug, [facility] [address] [id number] [address] [place] [id number] 19 Aug, 2014 [facility] [address] [id number] [address] [place] [id number] 19 Aug, 2014 [facility] [address] [id number] [address] [place] [id number] 18 Aug, 2014 [facility] [address] [id number] [address] [place] [id number] 18 Aug, 2014 [facility] [address] [id number] [address] [place] [phone] 13 Aug, 2014 [facility] [address] [id number] [address] [place] [address], [place] [address] 13 Aug, 2014 [facility] [address] [id number] [address] [place] [address], [place] [address] 11 Aug, 2014 [facility] [address] [id number] [address] [place] [address], [place] [address] 11 Aug, 2014 [facility] [address] [id number] [address] [place] [address], [place] [address] 06 Aug, 2014 [facility] [address] [id number] [address] [place] [address], [place] [address] 06 Aug, 2014 [facility] [address] [id number] [address] [place] [address], [place] [address] 05 Aug, 2014 [facility] [address] [id number] [address] [place] [address], [place] [address] Aug, 2014 [facility] [address] [id number] [address] [place] [address], [place] [address] 04 Aug, 2014 [facility] [address] [id number] [address] [place] [address], [place] [address] Aug, [facility] [address] [id number] [address] [place] [address], [place] [address] Aug, [facility] [address] [id number] [address] [place] [address], [place] [address] Jul, [facility] [address] [id number] [address] [place] [address], [place] [address] Jul, 2014 [facility] [address] [id number] [address] [place] [address], [place] [address] Jul, 2014 [facility] [address] [id number] [address] [place] [address], [place] [address] Jul, 2014 [facility] [address] [id number] [address] [place] [address], [place] [address] Jul, 2014 [facility] [address] [id number] [address] [place] [address], [place] [address] Jul, 2014 [facility] [address] [id number] [address] [place] [address], [place] [address] Jul, 2014 [facility] [address] [id number] [address] [place] [address], [place] [address] Jul, 2014 [facility] [address] [id number] [address] [place] [address], [place] [address] Jul, 2014 [facility] [address] [id number] [address] [place] [address], [place] [address] Jul, 2014 [facility] [address] [id number] [address] [place] [address], [place] [address] Jul, [facility] [address] [id number] [address] [place] [address], [place] [address] Jul, 2014 [facility] [address] [id number] [address] [place] [address], [place] [address] Jul, [facility] [address] [id number] [address] [place] [address], [place] [address] Jul, [facility] [address] [id number] [address] [place] [address], [place] [address] Jun, [facility] [address] [id number] [address] [place] [address], [place] [address] Jun, [facility] [address] [id number] [address] [place] [address], [place] [address] Jun, [facility] [address] [id number] [address] [place] [address], [place] [address] Jun, [facility] [address] [id number] [address] [place] [address], [place] [address] Jun, [facility] [address] [id number] [address] [place] [address], [place] [address] Jun, [facility] [address] [id number] [address] [place] [address], [place] [address] May, [facility] [address] [id number] [address] [place] [address], [place] [address] May, [facility] [address] [id number] [address] [place] [address], [place] [address] May, [facility] [address] [id number] [address] [place] [address], [place] [address] May, [facility] [address] [id number] [address] [place] [address], [place] [address] May, [facility] [address] [id number] [address] [place] [address], [place] [address] May, [facility] [address] [id number] [address] [place] [address], [place] [address] Apr, [facility] [address] [id number] [address] [place] [address], [place] [address] Apr, [facility] [address] [id number] [address] [place] [address], [place] [address] Apr, [facility] [address] [id number] [address] [place] [address], [place] [address] Apr, [facility] [address] [id number] [address] [place] [address], [place] [address] Apr, [facility] [address] [id number] [address] [place] [address], [place] [address] Apr, [facility] [address] [id number] [address] [place] [address], [place] [address] Mar, [facility] [address] [id number] [address] [place] [address], [place] [address] Mar, [facility] [address] [id number] [address] [place] [address], [place] [address] Mar, [facility] [address] [id number] [address] [place] [address], [place] [address] Mar, [facility] [address] [id number] [address] [place] [address], [place] [address] Mar, [facility] [address] [id number] [address] [place] [address], [place] [address] Mar, [facility] [address] [id number] [address] [place] [address], [place] [address] Mar, [facility] [address] [id number] [address] [place] [address], [place] [address] Mar, [facility] [address] [id number] [address] [place] [address], [place] [address] Mar, [facility] [address] [id number] [address] [place] [address], [place] [address] Mar, [facility] [address] [id number] [address] [place] [address], [place] [address] Mar, [facility] [address] [id number] [address] [place] [address], [place] [address] Mar, [facility] [address] [id number] [address] [place] [address], [place] [address] 30 Feb, 2013 [facility] [address] [id number] [address] [place] [address], [place] [address] 29 Feb, 2013 [facility] [address] [id number] [address] [place] [address], [place] [address] 29 Feb, 2013 [facility] [address] [id number] [address] [place] [address], [place] [address] 23 Feb, 2013 [facility] [address] [id number] [address] [place] [address], [place] [address] 23 Feb, 2013 [facility] [address] [id number] [address] [place] [address], [place] [address] 08 Feb, 2013 [facility] [address] [id number] [address] [place] [address], [place] [address] 08 Feb, 2013 [facility] [address] [id number] [address] [place] [address], [place] [address] Jan, [facility] [address] [id number] [address] [place] [id number] Jan, [facility] [address] [id number] [facility] [place] [address] Jan, [facility] [address] [id number] [address] [place] [address], [place] [address] Dec, [facility] [address] [id number] [address] [place] [address], [place] [address] Dec, [facility] [address] [id number] [address] [place] [address], [place] [address] Dec, [facility] [address] [id number] [address] [place] [address], [place] [address] Dec, [facility] [address] [id number] [address] [place] [address], [place] [address] Sep, [facility] [address] [id number] [address] [place] [address], [place] [address] Sep, [facility] [address] [id number] [address] [place] [address], [place] [address] Sep, [facility] [address] [id number] [address] [place] [address], [place] [address] Sep, [facility] [address] [id number] [address] [place] [address], [place] [address] Sep, [facility] [address] [id number] [address] [place] [address], [place] [address] Sep, [facility] [address] [id number] [address] [place] [address], [place] [address] Sep, [facility] [address] [id number] [address] [place] [address], [place] [address] Sep, [facility] [address] [id number] [address] [place] [address], [place] [address] Aug, [facility] [address] [id number] [address] [place] [address], [place] [address] Aug, [facility] [address] [id number] [address] [place] [address], [place] [address] May, [facility] [address] [id number] [address] [place] [address], [place] [address] May, [facility] [address] [id number] [address] [place] [address], [place] [address] Apr, [facility] [address] [id number] [address] [place] [address], [place] [address] Apr, [facility] [address] [id number] [address] [place] [address], [place] [address] Apr, [facility] [address] [id number] [address] [place] [address], [place] [address] Apr, [facility] [address] [id number] [address] [place] [address], [place] [address] Apr, [facility] [address] [id number] [address] [place] [address], [place] [address] Apr, [facility] [address] [id number] [address] [place] [address], [place] [address] 18 May, 2012 [facility] [address] [id number] [address] [place] [place] [address], [place] [address] 18 May, 2012 [facility] [address] [id number] [address] [place] [address], [place] [address] 15 May, 2012 [facility] [address] [id number] [address] [place] [address], [place] [address] 15 May, 2012 [facility] [address] [id number] [address] [place] [address], [place] [address] 13 May, 2012 [facility] [address] [id number] [address] [place] [address], [place] [address] 13 May, 2012 [facility] [address] [id number] [address] [place] [address], [place] [address] 13 Apr, 2012 [facility] [address] [id number] [address] [place] [address] [address] Apr, [facility] [address] [id number] [address] [place] [address], [place] [address] Apr, [facility] [address] [id number] [address] [place] [address], [place] [address] Apr, [facility] [address] [id number] [address] [place] [address], [place] [address] Apr, [facility] [address] [id number] [address] [place] [address], [place] [address] Apr, [facility] [address] [id number] [address] [place] [address], [place] [address] Apr, [facility] [address] [id number] [address] [place] [address], [place] [address] Apr, [facility] [address] [id number] [address] [place] [address], [place] [address] Apr, [facility] [address] [id number] [address] [place] [address], [place] [address] Apr, [facility] [address] [id number] [address] [place] [address], [place] [address] Mar, [facility] [address] [id number] [address] [place] [id number] Mar, [facility] [address] [id number] [address] [place] [id number] Mar, [facility] [address] [id number] [address] [place] [address] Mar, [facility] [address] [id number] [address] [place] [address] Mar, [facility] [address] [id number] [address] [place] [address] Mar, [facility] [address] [id number] [address] [place] [phone] Mar, [facility] [address] [id number] [address] [place] [address], [place] [address] Mar, [facility] [address] [id number] [address] [place] [address], [place] [address] Mar, [facility] [address] [id number] [address] [place] [address], [place] [address] 25 Feb, 2012 [facility] [address] [id number] [address] [place] [address], [place] [address] 16 Feb, 2012 [facility] [address] [id number] [address] [place] [address], [place] [address] 11 Feb, 2012 [facility] [address] [id number] [address] [place] [address], [place] [address] Jan, [facility] [address] [id number] [address] [place] [address], [place] [address] Jan, [facility] [address] [id number] [address] [place] [address], [place] [address] Jan, [facility] [address] [id number] [address] [place] [address], [place] [address] Jan, [facility] [address] [id number] [address] [place] [address], [place] [address] Jan, [facility] [address] [id number] [address] [place] [address], [place] [address] Jan, [facility] [address] [id number] [address] [place] [address], [place] [address] Jan, [facility] [address] [id number] [address] [place] [address], [place] [address] Jan, [facility] [address] [id number] [address] [place] [address], [place] [address] Jan, [facility] [address] [id number] [address] [place] [address], [place] [address] Jan, [facility] [address] [id number] [address] [place] [address], [place] [address] Dec, [facility] [address] [id number] [address] [place] [address], [place] [address] Dec, [facility] [address] [id number] [address] [place] [address], [place] [address] Dec, [facility] [address] [id number] [address] [place] [address], [place] [address] Dec, [facility] [address] [id number] [address] [place] [address], [place] [address] Nov, [facility] [address] [id number] [address] [place] [address], [place] [address] Nov, [facility] [address] [id number] [address] [place] [address], [place] [address] Nov, [facility] [address] [id number] [address] [place] [address], [place] [address] October, [facility] [address] [id number] [address] [place] [address], [place] [address] October, [facility] [address] [id number] [address] [place] [address], [place] [address] October, [facility] [address] [id number] [address] [place] [address], [place] [address] October, [facility] [address] [id number] [address] [place] [address], [place] [address] October, [facility] [address] [id number] [address] [place] [address], [place] [address] October, [facility] [address] [id number] [address] [place] [address], [place] [address] Aug, [facility] [address] [id number] [address] [place] [address], [place] [address] Mar, [facility] [address] [id number] [address] [place] [address], [place] [address] 16 Nov, 2010 [facility] [address] [id number] [address] [address] May, [facility] [address] [facility] [id number] [address] [place] [phone] May, [facility] [address] [facility] [id number] [address] [place] [id number] Apr, [facility] [address] [facility] [id number] [address] [place] [id number] Mar, [facility] [address] [facility] [id number] [address] [place] [id number] Mar, IMMUNIZATIONS No Known Immunizations SOCIAL HISTORY [...] Description Date Medical History Severe spinal stenosis [facility] cervical spine CT and MRI done 10/2014 at [facility] with Neurosurgery at Medical History Migraine BEAR [...]
--- OUTSIDE RECORDS SUMMARY | 2019-06-19 06:04 | XMS REPORT | Continuity of Care Document ---
Author Organization Unknown Address Unknown Phone Unavailable Allergies Active Description Code Type Severity Reaction Onset Reported/Identified Relationship to Patient Clinical Status Yes iodine Drug Allergy N/A N/A 01/06/2010 Yes morphine Drug Allergy N/A N/A 01/06/2010 Yes iodine Drug Allergy 01/06/2010 Yes morphine Drug Allergy 01/06/2010 Yes Lyrica 75 mg capsule Drug Eileen rgy N/A N/A 09/16/2013 Yes iodine [id number] Drug Allergy Severe HIVES 05/24/2019 Yes morphine [id number] Drug Allergy Severe HIVES 05/24/2019 Yes hydrocodone [id number] Drug Aller gy Moderate Itching 05/24/2019 Yes oxycodone [id number] Drug Allergy Moderate Itching 05/24/2019 Medications There is no data. Problems Date Dx Coded Attending Type Code Diagnosis Diagnosed By 05/17/1018 NAHOMY HANCOCK Ot M54.42 LUMBAGO WITH SCIATICA, LEFT SIDE 05/17/1519 BERENICE HOLLIDAY, SARAH Masterson Ot M48.02 SPINAL STENOSIS, CERVICAL REGION 05/17/1519 BERENICE HOLLIDAY, SARAH Masterson Ot M79 .1 MYALGIA 05/17/1519 BERENICE HOLLIDAY, SARAH Masterson Ot Z98 .1 ARTHRODESIS STATUS 01/06/2010 311 DEPRES SIVE DISORDER NOS 01/06/2010 627.9 MATTHEW PAUSAL AND POSTMENOPAUSAL DISORDER UNSPECIFIED 01/06/2010 995.3 EILEEN RGY UNSPECIFIED NOT ELSEWHERE CLASSIFIED 01/06/2010 V17.49 FAM SABIHA HISTORY OF CERTAIN CHRONIC DISABLING DISEASES, OTHER CARDIOVASCULAR DISEASES 01/06/2010 311 DEPRES SIVE DISORDER NOS 01/06/2010 627.9 MATTHEW PAUSAL AND POSTMENOPAUSAL DISORDER UNSPECIFIED 01/06/2010 995.3 EILEEN RGY UNSPECIFIED NOT ELSEWHERE CLASSIFIED 01/06/2010 V17.49 FAM SABIHA HISTORY OF CERTAIN CHRONIC DISABLING DISEASES, OTHER CARDIOVASCULAR DISEASES 01/06/2010 311 DEPRES SIVE DISORDER NOS 01/06/2010 627.9 MATTHEW PAUSAL AND POSTMENOPAUSAL DISORDER UNSPECIFIED 01/06/2010 995.3 EILEEN RGY UNSPECIFIED NOT ELSEWHERE CLASSIFIED 01/06/2010 V17.49 FAM SABIHA HISTORY OF CERTAIN CHRONIC DISABLING DISEASES, OTHER CARDIOVASCULAR DISEASES 01/06/2010 DAVEY STEPHENSON MD DEPRESSIVE DISORDER NOS 01/06/2010 DAVEY STEPHENSON MD 627.9 MENOPAUSAL AND POSTMENOPAUSAL DISORDER UNSPECIFIED 01/06/2010 DAVEY STEPHENSON MD 995.3 ALLERGY UNSPECIFIED NOT ELSEWHERE CLASSIFIED 01/06/2010 DAVEY STEPHENSON MD V17.4 9 FAMILY HISTORY OF CERTAIN CHRONIC DISABLING DISEASES, OTHER CARDIOVASCULAR DISEASES 01/06/2010 ROEL LOWERY APRN R 311 DEPRESSIVE DISORDER NOS 01/06/2010 ROEL LOWERY APRN R 627.9 MENOPAUSAL AND POSTMENOPAUSAL DISORDER UNSPECIFIED 01/06/2010 ROEL LOWERY APRN R 995.3 ALLERGY UNSPECIFIED NOT ELSEWHERE CLASSIFIED 01/06/2010 ROEL LOWERY APRN R V17.49 FAMILY HISTORY OF CERTAIN CHRONIC DISABL ING DISEASES, OTHER CARDIOVASCULAR DISEASES 01/06/2010 DAVEY STEPHENSON MD DEPRESSIVE DISORDER NOS 01/06/2010 DAVEY STEPHENSON MD7.9 MENOPAUSAL AND POSTMENOPAUSAL DISORDER UNSPECIFIED 01/06/2010 DAVEY STEPHENSON MD 995.3 ALLERGY UNSPECIFIED NOT ELSEWHERE CLASSIFIED 01/06/2010 DAVEY STEPHENSON MD V17.4 9 FAMILY HISTORY OF CERTAIN CHRONIC DISABLING DISEASES, OTHER CARDIOVASCULAR DISEASES 01/06/2010 ISAACS DO OLEG K 311 DEPRESSIVE DISORDER NOS 01/06/2010 ISAACS DO OLEG K 627.9 MENOPAUSAL AND POSTMENOPAUSAL DISORDER UNSPECIFIED 01/06/2010 ISAACS DO OLEG K 995.3 ALLERGY UNSPECIFIED NOT ELSEWHERE CLASSIFIED 01/06/2010 ISAACS DO OLEG K V17.49 FAMILY HISTORY OF CERTAIN CHRONIC DISABLING DISEASES, OTHER CARDIOVASCULAR DISEASES 01/06/2010 DAVEY STEPHENSON MD DEPRESSIVE DISORDER NOS 01/06/2010 DAVEY STEPHENSON MD7.9 MENOPAUSAL AND POSTMENOPAUSAL DISORDER UNSPECIFIED 01/06/2010 DAVEY STEPHENSON MD 995.3 ALLERGY UNSPECIFIED NOT ELSEWHERE CLASSIFIED 01/06/2010 DAVEY STEPHENSON MD V17.4 9 FAMILY HISTORY OF CERTAIN CHRONIC DISABLING DISEASES, OTHER CARDIOVASCULAR DISEASES 01/06/2010 KATELYN HENRIQUEZ APRN 31 1 DEPRESSIVE DISORDER NOS 01/06/2010 KATELYN HENRIQUEZ APRN 62 7.9 MENOPAUSAL AND POSTMENOPAUSAL DISORDER UNSPECIFIED 01/06/2010 KATELYN HENRIQUEZ APRN 99 5.3 ALLERGY UNSPECIFIED NOT ELSEWHERE CLASSIFIED 01/06/2010 KATELYN HENRIQUEZ APRN V17.49 FAMILY HISTORY OF CERTAIN CHRONIC DISABL ING DISEASES, OTHER CARDIOVASCULAR DISEASES 01/06/2010 EVAN CANO MD N 311 DEPRESSIVE DISORDER NOS 01/06/2010 EVAN CANO MD N 627 .9 MENOPAUSAL AND POSTMENOPAUSAL DISORDER UNSPECIFIED 01/06/2010 EVAN CANO MD N 995 .3 ALLERGY UNSPECIFIED NOT ELSEWHERE CLASSIFIED 01/06/2010 EVAN CANO MD N V17 .49 FAMILY HISTORY OF CERTAIN CHRONIC DISABLING DISEASES, OTHER CARDIOVASCULAR DISEASES 01/06/2010 LIDA HANCOCK APRNA S 311 DEPRESSIVE DISORDER NOS 01/06/2010 KRISTYN HANCOCK APRNNDA S 627.9 MENOPAUSAL AND POSTMENOPAUSAL DISORDER UNSPECIFIED 01/06/2010 NAHOMY HANCOCK APRN S 995.3 ALLERGY UNSPECIFIED NOT ELSEWHERE CLASSIFIED 01/06/2010 NAHOMY HANCOCK APRN S V17.49 FAMILY HISTORY OF CERTAIN CHRONIC DISABL ING DISEASES, OTHER CARDIOVASCULAR DISEASES 01/06/2010 EVAN CANO MD N 311 DEPRESSIVE DISORDER NOS 01/06/2010 EVAN CANO MD N 627 .9 MENOPAUSAL AND POSTMENOPAUSAL DISORDER UNSPECIFIED 01/06/2010 EVAN CANO MD N 995 .3 ALLERGY UNSPECIFIED NOT ELSEWHERE CLASSIFIED 01/06/2010 EVAN CANO MD N V17 .49 FAMILY HISTORY OF CERTAIN CHRONIC DISABLING DISEASES, OTHER CARDIOVASCULAR DISEASES 01/06/2010 MONICA [employer] BPM ARCHITECT, MARISABEL A 31 1 DEPRESSIVE DISORDER NOS 01/06/2010 MONICA [employer] BPM ARCHITECT, MARISABEL A 62 7.9 MENOPAUSAL AND POSTMENOPAUSAL DISORDER UNSPECIFIED 01/06/2010 MONICA [employer] BPM ARCHITECT, MARISABEL A 99 5.3 ALLERGY UNSPECIFIED NOT ELSEWHERE CLASSIFIED 01/06/2010 MONICA [employer] BPM ARCHITECT, MARISABEL A V17.49 FAMILY HISTORY OF CERTAIN CHRONIC DISABL ING DISEASES, OTHER CARDIOVASCULAR DISEASES 01/06/2010 KRISTYN HANCOCK APRNNDA S 311 DEPRESSIVE DISORDER NOS 01/06/2010 KRISTYN HANCOCK APRNNDA S 627.9 MENOPAUSAL AND POSTMENOPAUSAL DISORDER UNSPECIFIED 01/06/2010 KARISSA [employer] BPM ARCHITECT, NAHOMY S 995.3 ALLERGY UNSPECIFIED NOT ELSEWHERE CLASSIFIED 01/06/2010 KARISSA [employer] BPM ARCHITECT, NAHOMY S V17.49 FAMILY HISTORY OF CERTAIN CHRONIC DISABL ING DISEASES, OTHER CARDIOVASCULAR DISEASES 01/06/2010 KATELYN HENRIQUEZ APRN T 31 1 DEPRESSIVE DISORDER NOS 01/06/2010 FLORENCE BRIZUELAKATELYN An T 62 7.9 MENOPAUSAL AND POSTMENOPAUSAL DISORDER UNSPECIFIED 01/06/2010 FLORENCE BRIZUELAKATELYN An T 99 5.3 ALLERGY UNSPECIFIED NOT ELSEWHERE CLASSIFIED 01/06/2010 FLORENCE BRIZUELAKATELYN An V17.49 FAMILY HISTORY OF CERTAIN CHRONIC DISABL ING DISEASES, OTHER CARDIOVASCULAR DISEASES 01/06/2010 DAVEY STEPHENSON MD 311 DEPRESSIVE DISORDER NOS 01/06/2010 DAVEY STEPHENSON MD 627.9 MENOPAUSAL AND POSTMENOPAUSAL DISORDER UNSPECIFIED 01/06/2010 DAVEY STEPHENSON MD 995.3 ALLERGY UNSPECIFIED NOT ELSEWHERE CLASSIFIED 01/06/2010 DAVEY STEPHENSON MD V17.4 9 FAMILY HISTORY OF CERTAIN CHRONIC DISABLING DISEASES, OTHER CARDIOVASCULAR DISEASES 01/06/2010 MARIALUISA DPM, ORLY 311 DEPRESSIVE DISORDER NOS 01/06/2010 MARIALUISA DPM, ORLY 627.9 MENOPAUSAL AND POSTMENOPAUSAL DISORDER UNSPECIFIED 01/06/2010 MARIALUISA DPM, ORLY 995.3 ALLERGY UNSPECIFIED NOT ELSEWHERE CLASSIFIED 01/06/2010 MARIALUISA DPM, ORLY V17.49 FAMILY HISTORY OF CERTAIN CHRONIC DISABLING DISEASES, OTHER CARDIOVASCULAR DISEASES 01/06/2010 KARISSA [employer] BPM ARCHITECT, NAHOMY S 311 DEPRESSIVE DISORDER NOS 01/06/2010 KARISSA [employer] BPM ARCHITECT, NAHOMY S 627.9 MENOPAUSAL AND POSTMENOPAUSAL DISORDER UNSPECIFIED 01/06/2010 KARISSA [employer] BPM ARCHITECT, NAHOMY S 995.3 ALLERGY UNSPECIFIED NOT ELSEWHERE CLASSIFIED 01/06/2010 KARISSA [employer] BPM ARCHITECT, NAHOMY S V17.49 FAMILY HISTORY OF CERTAIN CHRONIC DISABL ING DISEASES, OTHER CARDIOVASCULAR DISEASES 01/06/2010 MARIALUISA DPM, ORLY 311 DEPRESSIVE DISORDER NOS 01/06/2010 MARIALUISA DPM, ORLY 627.9 MENOPAUSAL AND POSTMENOPAUSAL DISORDER UNSPECIFIED 01/06/2010 MARIALUISA DPM, ORLY 995.3 ALLERGY UNSPECIFIED NOT ELSEWHERE CLASSIFIED 01/06/2010 MARIALUISA DPM, ORLY V17.49 FAMILY HISTORY OF CERTAIN CHRONIC DISABLING DISEASES, OTHER CARDIOVASCULAR DISEASES 01/06/2010 KARISSA [employer] BPM ARCHITECT, NAHOMY S 311 DEPRESSIVE DISORDER NOS 01/06/2010 KARISSA [employer] BPM ARCHITECT, NAHOMY S 627.9 MENOPAUSAL AND POSTMENOPAUSAL DISORDER UNSPECIFIED 01/06/2010 KARISSA [employer] BPM ARCHITECT, NAHOMY S 995.3 ALLERGY UNSPECIFIED NOT ELSEWHERE CLASSIFIED 01/06/2010 KARISSA [employer] BPM ARCHITECT, NAHOMY S V17.49 FAMILY HISTORY OF CERTAIN CHRONIC DISABL ING DISEASES, OTHER CARDIOVASCULAR DISEASES 01/06/2010 KARISSA [employer] BPM ARCHITECT, NAHOMY S 311 DEPRESSIVE DISORDER NOS 01/06/2010 KARISSA [employer] BPM ARCHITECT, NAHOMY S 627.9 MENOPAUSAL AND POSTMENOPAUSAL DISORDER UNSPECIFIED 01/06/2010 KARISSA [employer] BPM ARCHITECT, NAHOMY S 995.3 ALLERGY UNSPECIFIED NOT ELSEWHERE CLASSIFIED 01/06/2010 KARISSA [employer] BPM ARCHITECT, NAHOMY S V17.49 FAMILY HISTORY OF CERTAIN CHRONIC DISABL ING DISEASES, OTHER CARDIOVASCULAR DISEASES 01/06/2010 KARISSA [employer] BPM ARCHITECT, NAHOMY S 311 DEPRESSIVE DISORDER NOS 01/06/2010 KARISSA [employer] BPM ARCHITECT, NAHOMY S 627.9 MENOPAUSAL AND POSTMENOPAUSAL DISORDER UNSPECIFIED 01/06/2010 KARISSA [employer] BPM ARCHITECT, NAHOMY S 995.3 ALLERGY UNSPECIFIED NOT ELSEWHERE CLASSIFIED 01/06/2010 KARISSA [employer] BPM ARCHITECT, NAHOMY S V17.49 FAMILY HISTORY OF CERTAIN CHRONIC DISABL ING DISEASES, OTHER CARDIOVASCULAR DISEASES 03/21/2010 300.00 ANX IETY UNSPEC 03/21/2010 V58.69 MED ICATION HIGH RISK 03/21/2010 300.00 ANX IETY UNSPEC 03/21/2010 V58.69 MED ICATION HIGH RISK 03/21/2010 300.00 ANX IETY UNSPEC 03/21/2010 V58.69 MED ICATION HIGH RISK 03/21/2010 DAVEY STEPHENSON MD 300.0 0 ANXIETY UNSPEC 03/21/2010 DAVEY STEPHENSON MD V58.6 9 MEDICATION HIGH RISK 03/21/2010 ROEL LOWERY APRN 300.00 ANXIETY UNSPEC 03/21/2010 ROEL LOWERY APRN V58.69 MEDICATION HIGH RISK 03/21/2010 DAVEY STEPHENSON MD 300.0 0 ANXIETY UNSPEC 03/21/2010 DAVEY STEPHENSON MD V58.6 9 MEDICATION HIGH RISK 03/21/2010 ISAACS DO, OLEG K 300.00 ANXIETY UNSPEC 03/21/2010 OLEG ISAACS DO K V58.69 MEDICATION HIGH RISK 03/21/2010 DAVEY STEPHENSON MD 300.0 0 ANXIETY UNSPEC 03/21/2010 DAVEY STEPHENSON MD V58.6 9 MEDICATION HIGH RISK 03/21/2010 KATELYN HENRIQUEZ APRN 300.00 ANXIETY UNSPEC 03/21/2010 KATELYN HENRIQUEZ APRN V58.69 MEDICATION HIGH RISK 03/21/2010 EVAN CANO MD 300 .00 ANXIETY UNSPEC 03/21/2010 EVAN CANO MD V58 .69 MEDICATION HIGH RISK 03/21/2010 NAHOMY HANCOCK APRN S 300.00 ANXIETY UNSPEC 03/21/2010 LIDA HANCOCK APRNA S V58.69 MEDICATION HIGH RISK 03/21/2010 EVAN CANO MD 300 .00 ANXIETY UNSPEC 03/21/2010 EVAN CANO MD V58 .69 MEDICATION HIGH RISK 03/21/2010 MARISABEL ANDERSON APRN A 300.00 ANXIETY UNSPEC 03/21/2010 MARISABEL ANDERSON APRN A V58.69 MEDICATION HIGH RISK 03/21/2010 LIDA HANCOCK APRNA S 300.00 ANXIETY UNSPEC 03/21/2010 LIDA HANCOCK APRNA S V58.69 MEDICATION HIGH RISK 03/21/2010 KATELYN HENRIQUEZ APRN 300.00 ANXIETY UNSPEC 03/21/2010 KATELYN HENRIQUEZ APRN V58.69 MEDICATION HIGH RISK 03/21/2010 DAVEY STEPHENSON MD 300.0 0 ANXIETY UNSPEC 03/21/2010 DAVEY STEPHENSON MD V58.6 9 MEDICATION HIGH RISK 03/21/2010 MARIALUISA DPM, ORLY 300.00 ANXIETY UNSPEC 03/21/2010 MARIALUISA DPM, ORLY V58.69 MEDICATION HIGH RISK 03/21/2010 LIDA HANCOCK APRNA S 300.00 ANXIETY UNSPEC 03/21/2010 KRISTYN HANCOCK APRNNDA S V58.69 MEDICATION HIGH RISK 03/21/2010 MARIALUISA DPM, ORLY 300.00 ANXIETY UNSPEC 03/21/2010 MARIALUISA DPM, ORLY V58.69 MEDICATION HIGH RISK 03/21/2010 LIDA HANCOCK APRNA S 300.00 ANXIETY UNSPEC 03/21/2010 KARISSA BRIZUELAN, NAHOMY S V58.69 MEDICATION HIGH RISK 03/21/2010 KARISSA BRIZUELAN, NAHOMY S 300.00 ANXIETY UNSPEC 03/21/2010 KARISSA [employer] BPM ARCHITECT, NAHOMY S V58.69 MEDICATION HIGH RISK 03/21/2010 KARISSA BRIZUELAN, NAHOMY S 300.00 ANXIETY UNSPEC 03/21/2010 KARISSA BRIZUELAN, NAHOMY S V58.69 MEDICATION HIGH RISK 04/01/2010 110.1 ONYC HOMYCOSIS 04/01/2010 110.1 ONYC HOMYCOSIS 04/01/2010 110.1 ONYC HOMYCOSIS 04/01/2010 DAVEY STEPHENSON MD 110.1 ONYCHOMYCOSIS 04/01/2010 ROEL LOWERY APRN R 110.1 ONYCHOMYCOSIS 04/01/2010 DAVEY STEPHENSON MD 110.1 ONYCHOMYCOSIS 04/01/2010 OLEG ISAACS DO K 110.1 ONYCHOMYCOSIS 04/01/2010 DAVEY STEPHENSON MD 110.1 ONYCHOMYCOSIS 04/01/2010 KATELYN HENRIQUEZ APRN T 11 0.1 ONYCHOMYCOSIS 04/01/2010 JEROME HOLLIDAY, EVAN N 110 .1 ONYCHOMYCOSIS 04/01/2010 KARISSA VALLE, NAHOMY S 110.1 ONYCHOMYCOSIS 04/01/2010 JEROME HOLLIDAY, EVAN N 110 .1 ONYCHOMYCOSIS 04/01/2010 MONICA VALLE, MARISABEL A 11 0.1 ONYCHOMYCOSIS 04/01/2010 KARISSA VALLE NAHOMY S 110.1 ONYCHOMYCOSIS 04/01/2010 KATELYN HENRIQUEZ APRN T 11 0.1 ONYCHOMYCOSIS 04/01/2010 DAVEY STEPHENSON MD 110.1 ONYCHOMYCOSIS 04/01/2010 MARIALUISA DPM, ORLY 110.1 ONYCHOMYCOSIS 04/01/2010 KARISSA VALLE, NAHOMY S 110.1 ONYCHOMYCOSIS 04/01/2010 MARIALUISA DPM, ORLY 110.1 ONYCHOMYCOSIS 04/01/2010 KARISSA VALLE, NAHOMY S 110.1 ONYCHOMYCOSIS 04/01/2010 KARISSA VALLE, NAHOMY S 110.1 ONYCHOMYCOSIS 04/01/2010 LIDA HANCOCK APRNA S 110.1 ONYCHOMYCOSIS 07/18/2010 783.21 LOS S OF WEIGHT 07/18/2010 783.21 LOS S OF WEIGHT 07/18/2010 783.21 LOS S OF WEIGHT 07/18/2010 DAVEY STEPHENSON MD 783.2 1 LOSS OF WEIGHT 07/18/2010 ROEL LOWERY APRN 783.21 LOSS OF WEIGHT 07/18/2010 DAVEY STEPHENSON MD 783.2 1 LOSS OF WEIGHT 07/18/2010 SHITAL AGUILA OLEG K 783.21 LOSS OF WEIGHT 07/18/2010 DAVEY STEPHENSON MD 783.2 1 LOSS OF WEIGHT 07/18/2010 KATELYN HENRIQUEZ APRN 783.21 LOSS OF WEIGHT 07/18/2010 EVAN CANO MD N 783 .21 LOSS OF WEIGHT 07/18/2010 LIDA HANCOCK APRNA S 783.21 LOSS OF WEIGHT 07/18/2010 EVAN CANO MD N 783 .21 LOSS OF WEIGHT 07/18/2010 MARISABEL ANDERSON APRN A 783.21 LOSS OF WEIGHT 07/18/2010 KRISTYN HANCOCK APRNNDA S 783.21 LOSS OF WEIGHT 07/18/2010 KATELYN HENRIQUEZ APRN 783.21 LOSS OF WEIGHT 07/18/2010 DAVEY STEPHENSON MD 783.2 1 LOSS OF WEIGHT 07/18/2010 MARIALUISA DPM, ORLY 783.21 LOSS OF WEIGHT 07/18/2010 KRISTYN HANCOCK APRNNDA S 783.21 LOSS OF WEIGHT 07/18/2010 MARIALUISA DPM, ORLY 783.21 LOSS OF WEIGHT 07/18/2010 KARISSA VALLE NAHOMY S 783.21 LOSS OF WEIGHT 07/18/2010 KRISTYN HANCOCK APRNNDA S 783.21 LOSS OF WEIGHT 07/18/2010 KARISSA VALLE NAHOMY S 783.21 LOSS OF WEIGHT 11/24/2010 616.10 Vag initis Vulvovaginitis Unspecified 11/24/2010 616.10 Vag initis Vulvovaginitis Unspecified 11/24/2010 616.10 Vag initis Vulvovaginitis Unspecified 11/24/2010 DAVEY STEPHENSON MD 616.1 0 Vaginitis Vulvovaginitis Unspecified 11/24/2010 ROEL LOWERY APRN R 616.10 Vaginitis Vulvovaginitis Unspecified 11/24/2010 DAVEY STEPHENSON MD 616.1 0 Vaginitis Vulvovaginitis Unspecified 11/24/2010 SHITAL AGUILA OLEG Shon 616.10 Vaginitis Vulvovaginitis Unspecified 11/24/2010 DAVEY STEPHENSON MD 616.1 0 Vaginitis Vulvovaginitis Unspecified 11/24/2010 KATELYN HENRIQUEZ APRN 616.10 Vaginitis Vulvovaginitis Unspecified 11/24/2010 EVAN CANO MD 616 .10 Vaginitis Vulvovaginitis Unspecified 11/24/2010 KARISSA BRIZUELAN, NAHOMY S 616.10 Vaginitis Vulvovaginitis Unspecified 11/24/2010 EVAN CANO MD N 616 .10 Vaginitis Vulvovaginitis Unspecified 11/24/2010 MONICA VALLE, MARISABEL A 616.10 Vaginitis Vulvovaginitis Unspecified 11/24/2010 KARISSACHRISTOPHER BRIZUELAN, NAHOMY S 616.10 Vaginitis Vulvovaginitis Unspecified 11/24/2010 KATELYN HENRIQUEZ APRN T 616.10 Vaginitis Vulvovaginitis Unspecified 11/24/2010 DAVEY STEPHENSON MD 616.1 0 Vaginitis Vulvovaginitis Unspecified 11/24/2010 MARIALUISA DPM, ORLY 616.10 Vaginitis Vulvovaginitis Unspecified 11/24/2010 KARISSA [employer] BPM ARCHITECT, NAHOMY S 616.10 Vaginitis Vulvovaginitis Unspecified 11/24/2010 MARIALUISA DPM, ORLY 616.10 Vaginitis Vulvovaginitis Unspecified 11/24/2010 KARISSA [employer] BPM ARCHITECT, NAHOMY S 616.10 Vaginitis Vulvovaginitis Unspecified 11/24/2010 KARISSA [employer] BPM ARCHITECT, NAHOMY S 616.10 Vaginitis Vulvovaginitis Unspecified 11/24/2010 KARISSA [employer] BPM ARCHITECT, NAHOMY S 616.10 Vaginitis Vulvovaginitis Unspecified 12/01/2010 289.3 Lymp hadenitis Unspecified Except Mesenteric 12/01/2010 289.3 Lymp hadenitis Unspecified Except Mesenteric 12/01/2010 289.3 Lymp hadenitis Unspecified Except Mesenteric 12/01/2010 DAVEY STEPHENSON MD 289.3 Lymphadenitis Unspecified Except Mesenteric 12/01/2010 ROEL LOWERY APRN R 289.3 Lymphadenitis Unspecified Except Mesenteric 12/01/2010 DAVEY STEPHENSON MD 289.3 Lymphadenitis Unspecified Except Mesenteric 12/01/2010 ISAACS DO, OLEG K 289.3 Lymphadenitis Unspecified Except Mesenteric 12/01/2010 DAVEY STEPHENSON MD 289.3 Lymphadenitis Unspecified Except Mesenteric 12/01/2010 KATELYN HENRIQUEZ APRN 28 9.3 Lymphadenitis Unspecified Except Mesenteric 12/01/2010 EVAN CANO MD 289 .3 Lymphadenitis Unspecified Except Mesenteric 12/01/2010 KARISSA VALLE, NAHOMY S 289.3 Lymphadenitis Unspecified Except Mesenteric 12/01/2010 EVAN CANO MD N 289 .3 Lymphadenitis Unspecified Except Mesenteric 12/01/2010 MONICA [employer] BPM ARCHITECT, MARISABEL A 28 9.3 Lymphadenitis Unspecified Except Mesenteric 12/01/2010 KARISSA BRIZUELAN, NAHOMY S 289.3 Lymphadenitis Unspecified Except Mesenteric 12/01/2010 KATELYN HENRIQUEZ APRN T 28 9.3 Lymphadenitis Unspecified Except Mesenteric 12/01/2010 DAVEY STEPHENSON MD 289.3 Lymphadenitis Unspecified Except Mesenteric 12/01/2010 MARIALUISA DPM, ORLY 289.3 Lymphadenitis Unspecified Except Mesenteric 12/01/2010 KARISSA BRIZUELAN, NAHOMY S 289.3 Lymphadenitis Unspecified Except Mesenteric 12/01/2010 MARIALUISA DPM, ORLY 289.3 Lymphadenitis Unspecified Except Mesenteric 12/01/2010 KARISSA [employer] BPM ARCHITECT, NAHOMY S 289.3 Lymphadenitis Unspecified Except Mesenteric 12/01/2010 KARISSA [employer] BPM ARCHITECT, NAHOMY S 289.3 Lymphadenitis Unspecified Except Mesenteric 12/01/2010 KARISSA BRIZUELAN, NAHOMY S 289.3 Lymphadenitis Unspecified Except Mesenteric 01/06/2011 Ot 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 01/06/2011 Ot V62.84 SLIM CIDAL IDEATION 01/10/2011 618.00 Uns pecified Prolapse Of Vaginal Peña 01/10/2011 618.00 Uns pecified Prolapse Of Vaginal Peña 01/10/2011 618.00 Uns pecified Prolapse Of Vaginal Peña 01/10/2011 DAVEY STEPHENSON MD 618.0 0 Unspecified Prolapse Of Vaginal Peña 01/10/2011 ROEL LOWERY APRN 618.00 Unspecified Prolapse Of Vaginal Peña 01/10/2011 DAVEY STEPHENSON MD 618.0 0 Unspecified Prolapse Of Vaginal Peña 01/10/2011 SHITAL AGUILA OLEG K 618.00 Unspecified Prolapse Of Vaginal Peña 01/10/2011 DAVEY STEPHENSON MD 618.0 0 Unspecified Prolapse Of Vaginal Peña 01/10/2011 KATELYN HENRIQUEZ APRN 618.00 Unspecified Prolapse Of Vaginal Peña 01/10/2011 EVAN CANO MD N 618 .00 Unspecified Prolapse Of Vaginal Peña 01/10/2011 LIDA HANCOCK APRNA S 618.00 Unspecified Prolapse Of Vaginal Peña 01/10/2011 EVAN CANO MD N 618 .00 Unspecified Prolapse Of Vaginal Peña 01/10/2011 MARISABEL ANDERSON APRN A 618.00 Unspecified Prolapse Of Vaginal Peña 01/10/2011 KRISTYN HANCOCK APRNNDA S 618.00 Unspecified Prolapse Of Vaginal Peña 01/10/2011 KATELYN HENRIQUEZ APRN 618.00 Unspecified Prolapse Of Vaginal Peña 01/10/2011 DAVEY STEPHENSON MD 618.0 0 Unspecified Prolapse Of Vaginal Peña 01/10/2011 MARIALUISA [...] Prolapse Of Vaginal Peña 01/19/2011 Ot 296.20 DEP RESS DISORDER- UNSPEC 01/19/2011 Ot 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 03/16/2011 564.1 IRRI TABLE BOWEL SYNDROME 03/16/2011 564.1 IRRI TABLE BOWEL SYNDROME 03/16/2011 564.1 IRRI TABLE BOWEL SYNDROME 03/16/2011 DAVEY STEPHENSON MD 564.1 IRRITABLE BOWEL SYNDROME 03/16/2011 ROEL LOWERY APRN 564.1 IRRITABLE BOWEL SYNDROME 03/16/2011 DAVEY STEPHENSON MD 564.1 IRRITABLE BOWEL SYNDROME 03/16/2011 SHITAL AGUILA OLEG Shon 564.1 IRRITABLE BOWEL SYNDROME 03/16/2011 DAVEY STEPHENSON MD 564.1 IRRITABLE BOWEL SYNDROME 03/16/2011 KATELYN HENRIQUEZ APRN 56 4.1 IRRITABLE BOWEL SYNDROME 03/16/2011 EVAN CANO MD 564 .1 IRRITABLE BOWEL SYNDROME 03/16/2011 NAHOMY HANCOCK APRN S 564.1 IRRITABLE BOWEL SYNDROME 03/16/2011 EVAN CANO MD 564 .1 IRRITABLE BOWEL SYNDROME 03/16/2011 MARISABEL ANDERSON APRN 56 4.1 IRRITABLE BOWEL SYNDROME 03/16/2011 NAHOMY HANCOCK APRN S 564.1 IRRITABLE BOWEL SYNDROME 03/16/2011 KATELYN HENRIQUEZ APRN 56 4.1 IRRITABLE BOWEL SYNDROME 03/16/2011 DAVEY STEPHENSON MD 564.1 IRRITABLE BOWEL SYNDROME 03/16/2011 MARIALUISA LORENZ, ORLY 564.1 IRRITABLE BOWEL SYNDROME 03/16/2011 KRISTYN HANCOCK APRNNDA S 564.1 IRRITABLE BOWEL SYNDROME 03/16/2011 MARIALUISA DPM, ORLY 564.1 IRRITABLE BOWEL SYNDROME 03/16/2011 KRISTYN HANCOCK APRNNDA S 564.1 IRRITABLE BOWEL SYNDROME 03/16/2011 KRISTYN HANCOCK APRNNDA S 564.1 IRRITABLE BOWEL SYNDROME 03/16/2011 KRISTYN HANCOCK APRNNDA S 564.1 IRRITABLE BOWEL SYNDROME 11/08/2011 616.2 Cyst Of Bartholin's Gland 11/08/2011 623.5 Leuk orrhea Not Specified As Infective 11/08/2011 616.2 Cyst Of Bartholin's Gland 11/08/2011 623.5 Leuk orrhea Not Specified As Infective 11/08/2011 616.2 Cyst Of Bartholin's Gland 11/08/2011 623.5 Leuk orrhea Not Specified As Infective 11/08/2011 DAVEY STEPHENSON [...] Leukorrhea Not Specified As Infective 11/08/2011 ISAACS DOYURIDIAA K 616.2 Cyst Of [place]tholin's Gland 11/08/2011 ISAACS DO, OLEG K 623.5 Leukorrhea Not Specified As Infective 11/08/2011 DAVEY STEPHENSON MD 616.2 Cyst Of [place]olin's Gland 11/08/2011 DAVEY STEPHENSON MD 623.5 Leukorrhea Not Specified As Infective 11/08/2011 KATELYN HENRIQUEZ APRN 61 6.2 Cyst Of [place]tholin's Gland 11/08/2011 KATELYN HENRIQUEZ APRN 62 3.5 Leukorrhea Not Specified As Infective 11/08/2011 EVAN CANO MD 616 .2 Cyst Of [place]tholin's Gland 11/08/2011 EVAN CANO MD 623 .5 Leukorrhea Not Specified As Infective 11/08/2011 NAHOMY HANCOCK APRN 616.2 Cyst Of Bartholin's Gland 11/08/2011 NAHOMY HANCOCK APRN S 623.5 Leukorrhea Not Specified As Infective 11/08/2011 EVAN CANO MD 616 .2 Cyst Of [place]tholin's Gland 11/08/2011 EVAN CANO MD 623 .5 Leukorrhea Not Specified As Infective 11/08/2011 MARISABEL ANDERSON APRN 61 6.2 Cyst Of [place]tholin's Gland 11/08/2011 MONICA [employer] BPM ARCHITECT, MARISABEL A 62 3.5 Leukorrhea Not Specified As Infective 11/08/2011 KARISSA VALLE NAHOYM S 616.2 Cyst Of [place]'s Gland 11/08/2011 KARISSA VALLE, NAHOMY S 623.5 Leukorrhea Not Specified As Infective 11/08/2011 FLORENCE [employer] BPM ARCHITECT, KATELYN T 61 6.2 Cyst Of [place]olin's Gland 11/08/2011 FLORENCE [employer] BPM ARCHITECTKATELYN 62 3.5 Leukorrhea Not Specified As Infective 11/08/2011 DAVEY STEPHENSON MD 616.2 Cyst Of [place]tholin's Gland 11/08/2011 DAVEY STEPHENSON MD 623.5 Leukorrhea Not Specified As Infective 11/08/2011 MARIALUISA DPM, ORLY 616.2 Cyst Of [place]tholin's Gland 11/08/2011 MARIALUISA DPM, ORLY 623.5 Leukorrhea Not Specified As Infective 11/08/2011 KRISTYN HANCOCK APRNNDA S 616.2 Cyst Of [place]tholin's Gland 11/08/2011 KARISSA VALLE NAHOMY S 623.5 Leukorrhea Not Specified As Infective 11/08/2011 MARIALUISA DPM, ORLY 616.2 Cyst Of [place]tholin's Gland 11/08/2011 MARIALUISA DPM, ORLY 623.5 Leukorrhea Not Specified As Infective 11/08/2011 KARISSA [employer] BPM ARCHITECT, NAHOMY S 616.2 Cyst Of [place]tholin's Gland 11/08/2011 KARISSA [employer] BPM ARCHITECT, NAHOMY S 623.5 Leukorrhea Not Specified As Infective 11/08/2011 KARISSA VALLE NAHOMY S 616.2 Cyst Of [place]tholin's Gland 11/08/2011 KARISSA [employer] BPM ARCHITECT, NAHOMY S 623.5 Leukorrhea Not Specified As Infective 11/08/2011 KARISSA [employer] BPM ARCHITECT, NAHOMY S 616.2 Cyst Of [place]olin's Gland 11/08/2011 KARISSA VALLE NAHOMY S 623.5 Leukorrhea Not Specified As Infective 11/23/2011 272.4 OTHE R AND UNSPECIFIED HYPERLIPIDEMIA 11/23/2011 272.4 OTHE R AND UNSPECIFIED HYPERLIPIDEMIA 11/23/2011 272.4 OTHE R AND UNSPECIFIED HYPERLIPIDEMIA 11/23/2011 DAVEY STEPHENSON MD 272.4 OTHER AND UNSPECIFIED HYPERLIPIDEMIA 11/23/2011 ROEL LOWERY APRN R 272.4 OTHER AND UNSPECIFIED HYPERLIPIDEMIA 11/23/2011 DAVEY STEPHENSON MD 272.4 OTHER AND UNSPECIFIED HYPERLIPIDEMIA 11/23/2011 ISAACS DO, OLEG K 272.4 OTHER AND UNSPECIFIED HYPERLIPIDEMIA 11/23/2011 DAVEY STEPHENSON MD 272.4 OTHER AND UNSPECIFIED HYPERLIPIDEMIA 11/23/2011 KATELYN HENRIQUEZ APRN T 27 2.4 OTHER AND UNSPECIFIED HYPERLIPIDEMIA 11/23/2011 EVAN CANO MD N 272 .4 OTHER AND UNSPECIFIED HYPERLIPIDEMIA 11/23/2011 KARSISA VALLE NAHOMY S 272.4 OTHER AND UNSPECIFIED HYPERLIPIDEMIA 11/23/2011 EVAN CANO MD 272 .4 OTHER AND UNSPECIFIED HYPERLIPIDEMIA 11/23/2011 MONICAMILLER VALLE MARISABEL A 27 2.4 OTHER AND UNSPECIFIED HYPERLIPIDEMIA 11/23/2011 KARISSA VALLE, NAHOMY S 272.4 OTHER AND UNSPECIFIED HYPERLIPIDEMIA 11/23/2011 KATELYN HENRIQUEZ APRN T 27 2.4 OTHER AND UNSPECIFIED HYPERLIPIDEMIA 11/23/2011 DAVEY STEPHENSON MD 272.4 OTHER AND UNSPECIFIED HYPERLIPIDEMIA 11/23/2011 MARIALUISA DPM, ORLY 272.4 OTHER AND UNSPECIFIED HYPERLIPIDEMIA 11/23/2011 KARISSACHRISTOPHER VALLE, NAHOMY S 272.4 OTHER AND UNSPECIFIED HYPERLIPIDEMIA 11/23/2011 MARIALUISA DPM, ORLY 272.4 OTHER AND UNSPECIFIED HYPERLIPIDEMIA 11/23/2011 KARISSA [employer] BPM ARCHITECT, NAHOMY S 272.4 OTHER AND UNSPECIFIED HYPERLIPIDEMIA 11/23/2011 KARISSA VALLE NAHOMY S 272.4 OTHER AND UNSPECIFIED HYPERLIPIDEMIA 11/23/2011 KARISSA VALLE, NAHOMY S 272.4 OTHER AND UNSPECIFIED HYPERLIPIDEMIA 01/02/2012 477.0 EILEEN RGIC RHINITIS DUE TO POLLEN 01/02/2012 477.0 EILEEN RGIC RHINITIS DUE TO POLLEN 01/02/2012 477.0 EILEEN RGIC RHINITIS DUE TO POLLEN 01/02/2012 DAVEY STEPHENSON MD 477.0 ALLERGIC RHINITIS DUE TO POLLEN 01/02/2012 ROEL LOWERY APRN R 477.0 ALLERGIC RHINITIS DUE TO POLLEN 01/02/2012 DAVEY STEPHENSON MD 477.0 ALLERGIC RHINITIS DUE TO POLLEN 01/02/2012 ISAACS DO, OLEG K 477.0 ALLERGIC RHINITIS DUE TO POLLEN 01/02/2012 DAVEY STEPHENSON MD 477.0 ALLERGIC RHINITIS DUE TO POLLEN 01/02/2012 KATELYN HENRIQUEZ APRN T 47 7.0 ALLERGIC RHINITIS DUE TO POLLEN 01/02/2012 EVAN CANO MD N 477 .0 ALLERGIC RHINITIS DUE TO POLLEN 01/02/2012 KARISSA [employer] BPM ARCHITECT, NAHOMY S 477.0 ALLERGIC RHINITIS DUE TO POLLEN 01/02/2012 EVAN CANO MD N 477 .0 ALLERGIC RHINITIS DUE TO POLLEN 01/02/2012 MONICA [employer] BPM ARCHITECT, MARISABEL A 47 7.0 ALLERGIC RHINITIS DUE TO POLLEN 01/02/2012 KARISSA [employer] BPM ARCHITECT, NAHOMY S 477.0 ALLERGIC RHINITIS DUE TO POLLEN 01/02/2012 KATELYN HENRIQUEZ APRN 47 7.0 ALLERGIC RHINITIS DUE TO POLLEN 01/02/2012 DAVEY STEPHENSON MD 477.0 ALLERGIC RHINITIS DUE TO POLLEN 01/02/2012 MARIALUISA DPM, ORLY 477.0 ALLERGIC RHINITIS DUE TO POLLEN 01/02/2012 KARISSA [employer] BPM ARCHITECT, NAHOMY S 477.0 ALLERGIC RHINITIS DUE TO POLLEN 01/02/2012 MARIALUISA DPM, ORLY 477.0 ALLERGIC RHINITIS DUE TO POLLEN 01/02/2012 KARISSA [employer] BPM ARCHITECT, NAHOMY S 477.0 ALLERGIC RHINITIS DUE TO POLLEN 01/02/2012 KARISSA [employer] BPM ARCHITECT, NAHOMY S 477.0 ALLERGIC RHINITIS DUE TO POLLEN 01/02/2012 KARISSA [employer] BPM ARCHITECT, NAHOMY S 477.0 ALLERGIC RHINITIS DUE TO POLLEN 01/09/2012 787.01 SHEFALI SEA WITH VOMITING 01/09/[address] BITE NONVENOMOUS OF OTHER MULTIPLE AND UNSPECIFIED SITES WITHOUT INFECTION 01/09/2012 787.01 SHEFALI SEA WITH VOMITING 01/09/[address] BITE NONVENOMOUS OF OTHER MULTIPLE AND UNSPECIFIED SITES WITHOUT INFECTION 01/09/2012 787.01 SHEFALI SEA WITH VOMITING 01/09/[address] BITE NONVENOMOUS OF OTHER MULTIPLE AND UNSPECIFIED SITES WITHOUT INFECTION 01/09/2012 DAVYE STEPHENSON MD 787.0 1 NAUSEA WITH VOMITING 01/09/2012 DAVEY STEPHENSON MD 919.4 INSECT BITE NONVENOMOUS OF OTHER MULTIPLE AND UNSPECIFIED SITES WITHOUT INFECTION 01/09/2012 ROEL LOWERY APRN R 787.01 NAUSEA WITH VOMITING 01/09/2012 ROEL LOWERY APRN 919.4 INSECT BITE NONVENOMOUS OF OTHER MULTIPL E AND UNSPECIFIED SITES WITHOUT INFECTION 01/09/2012 DAVEY STEPHENSON MD 787.0 1 NAUSEA WITH VOMITING 01/09/2012 DAVEY STEPHENSON MD 919.4 INSECT BITE NONVENOMOUS OF OTHER MULTIPLE AND UNSPECIFIED SITES WITHOUT INFECTION 01/09/2012 ISAACS DO, OLEG K 787.01 NAUSEA WITH VOMITING 01/09/2012 ISAACS DO, OLEG K 919.4 INSECT BITE NONVENOMOUS OF OTHER MULTIPLE AND UNSPECIFIED SITES WITHOUT INFECTION 01/09/2012 DAVEY STEPHENSON MD 787.0 1 NAUSEA WITH VOMITING 01/09/2012 DAVEY STEPHENSON MD 919.4 INSECT BITE NONVENOMOUS OF OTHER MULTIPLE AND UNSPECIFIED SITES WITHOUT INFECTION 01/09/2012 KATELYN HENRIQUEZ APRN 787.01 NAUSEA WITH VOMITING 01/09/2012 KATELYN HENRIQUEZ APRN 91 9.4 INSECT BITE NONVENOMOUS OF OTHER MULTIPLE AND UNSPECIFIED SITES WITHOUT INFECTION 01/09/2012 EVAN CANO MD 787 .01 NAUSEA WITH VOMITING 01/09/2012 EVAN CANO MD 919 .4 INSECT BITE NONVENOMOUS OF OTHER MULTIPLE AND UNSPECIFIED SITES WITHOUT INFECTION 01/09/2012 NAHOMY HANCOCK APRN S 787.01 NAUSEA WITH VOMITING 01/09/2012 NAHOMY HANCOCK APRN 919.4 INSECT BITE NONVENOMOUS OF OTHER MULTIPL E AND UNSPECIFIED SITES WITHOUT INFECTION 01/09/2012 EVAN CANO MD N 787 .01 NAUSEA WITH VOMITING 01/09/2012 EVAN CANO MD 919 .4 INSECT BITE NONVENOMOUS OF OTHER MULTIPLE AND UNSPECIFIED SITES WITHOUT INFECTION 01/09/2012 MARISABEL ANDERSON APRN A 787.01 NAUSEA WITH VOMITING 01/09/2012 MARISABEL ANDERSON APRN A 91 9.4 INSECT BITE NONVENOMOUS OF OTHER MULTIPLE AND UNSPECIFIED SITES WITHOUT INFECTION 01/09/2012 KARISSA [employer] BPM ARCHITECT, NAHOMY S 787.01 NAUSEA WITH VOMITING 01/09/2012 KARISSA VALLE NAHOMY S 919.4 INSECT BITE NONVENOMOUS OF OTHER MULTIPL E AND UNSPECIFIED SITES WITHOUT INFECTION 01/09/2012 KATELYN HENRIQUEZ APRN 787.01 NAUSEA WITH VOMITING 01/09/2012 KATELYN HENRIQUEZ APRN 91 9.4 INSECT BITE NONVENOMOUS OF OTHER MULTIPLE AND UNSPECIFIED SITES WITHOUT INFECTION 01/09/2012 DAVEY STEPHENSON MD 787.0 1 NAUSEA WITH VOMITING 01/09/2012 DAVEY STEPHENSON MD 919.4 INSECT BITE NONVENOMOUS OF OTHER MULTIPLE AND UNSPECIFIED SITES WITHOUT INFECTION 01/09/2012 MARIALUISA DPM, ORLY 787.01 NAUSEA WITH VOMITING 01/09/2012 MARIALUISA DPM, ORLY 919.4 INSECT BITE NONVENOMOUS OF OTHER MULTIPLE AND UNSPECIFIED SITES WITHOUT INFECTION 01/09/2012 KARISSA VALLE NAHOMY S 787.01 NAUSEA WITH VOMITING 01/09/2012 KRISTYN HANCOCK APRNNDA S 919.4 INSECT BITE NONVENOMOUS OF OTHER MULTIPL E AND UNSPECIFIED SITES WITHOUT INFECTION 01/09/2012 MARIALUISA DPM, ORLY 787.01 NAUSEA WITH VOMITING 01/09/2012 MARIALUISA DPM, ORLY 919.4 INSECT BITE NONVENOMOUS OF OTHER MULTIPLE AND UNSPECIFIED SITES WITHOUT INFECTION 01/09/2012 KARISSA [employer] BPM ARCHITECT, NAHOMY S 787.01 NAUSEA WITH VOMITING 01/09/2012 KAR[employer]SA [employer] BPM ARCHITECT, NAHOMY S 919.4 INSECT BITE NONVENOMOUS OF OTHER MULTIPL E AND UNSPECIFIED SITES WITHOUT INFECTION 01/09/2012 KAR[employer]SA [employer] BPM ARCHITECT, NAHOMY S 787.01 NAUSEA WITH VOMITING 01/09/2012 KAR[employer]SA [employer] BPM ARCHITECT, NAHOMY S 919.4 INSECT BITE NONVENOMOUS OF OTHER MULTIPL E AND UNSPECIFIED SITES WITHOUT INFECTION 01/09/2012 KAR[employer]SA [employer] BPM ARCHITECT, NAHOMY S 787.01 NAUSEA WITH VOMITING 01/09/2012 KAR[employer]SA [employer] BPM ARCHITECT, NAHOMY S 919.4 INSECT BITE NONVENOMOUS OF OTHER MULTIPL E AND UNSPECIFIED SITES WITHOUT INFECTION 01/31/2012 616.2 CYST OF [place] 01/31/2012 618.01 CYS TOCELE MIDLINE 01/31/2012 618.04 REC TOCELE 01/31/2012 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) 01/31/2012 V76.10 KRISTYN AST CANCER SCREENING 01/31/2012 V76.47 VAG INAL PAP SMEAR SCREENING 01/31/2012 616.2 CYST OF [place] 01/31/2012 618.01 CYS TOCELE MIDLINE 01/31/2012 618.04 REC TOCELE 01/31/2012 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) 01/31/2012 V76.10 KRISTYN AST CANCER SCREENING 01/31/2012 V76.47 VAG INAL PAP SMEAR SCREENING 01/31/2012 616.2 CYST OF [place] 01/31/2012 618.01 CYS TOCELE MIDLINE 01/31/2012 618.04 REC TOCELE 01/31/2012 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) 01/31/2012 V76.10 KRISTYN AST CANCER SCREENING 01/31/2012 V76.47 VAG INAL PAP SMEAR SCREENING 01/31/2012 DAVEY STEPHENSON MD 616.2 CYST OF [place] 01/31/2012 DAVEY STEPHENSON MD 618.0 1 CYSTOCELE MIDLINE 01/31/2012 DAVEY STEPHENSON MD 618.0 4 RECTOCELE 01/31/2012 DAVEY STEPHENSON MD 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) 01/31/2012 DAVEY STEPHENSON MD V76.1 0 BREAST CANCER SCREENING 01/31/2012 DAVEY STEPHENSON MD V76.4 7 VAGINAL PAP SMEAR SCREENING 01/31/2012 ROEL LOWERY APRN R 616.2 CYST OF [place] 01/31/2012 ROEL LOWERY APRN R 618.01 CYSTOCELE MIDLINE 01/31/2012 ROEL LOWERY APRN R 618.04 RECTOCELE 01/31/2012 ROEL LOWERY APRN R 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) 01/31/2012 ROEL LOWERY APRN R V76.10 BREAST CANCER SCREENING 01/31/2012 ROEL LOWERY APRN R V76.47 VAGINAL PAP SMEAR SCREENING 01/31/2012 DAVEY STEPHENSON MD 616.2 CYST OF [place] 01/31/2012 DAVEY STEPHENSON MD 618.0 1 CYSTOCELE MIDLINE 01/31/2012 DAVEY STEPHENSON MD 618.0 4 RECTOCELE 01/31/2012 DAVEY STEPHENSON MD 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) 01/31/2012 DAVEY STEPHENSON MD V76.1 0 BREAST CANCER SCREENING 01/31/2012 DAVEY STEPHENSON MD V76.4 7 VAGINAL PAP SMEAR SCREENING 01/31/2012 OLEG ISAACS DO K 616.2 CYST OF [place] 01/31/2012 OLEG ISAACS DO K 618.01 CYSTOCELE MIDLINE 01/31/2012 OLEG ISAACS DO K 618.04 RECTOCELE 01/31/2012 OLEG ISAACS DO K 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) 01/31/2012 OLEG ISAACS DO K V76.10 BREAST CANCER SCREENING 01/31/2012 OLEG ISAACS DO V76.47 VAGINAL PAP SMEAR SCREENING 01/31/2012 DAVEY STEPHENSON MD 616.2 CYST OF [place] 01/31/2012 DAVEY STEPHENSON MD 618.0 1 CYSTOCELE MIDLINE 01/31/2012 DAVEY STEPHENSON MD 618.0 4 RECTOCELE 01/31/2012 DAVEY STEPHENSON MD 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) 01/31/2012 DAVEY STEPHENSON MD V76.1 0 BREAST CANCER SCREENING 01/31/2012 DAVEY STEPHENSON MD V76.4 7 VAGINAL PAP SMEAR SCREENING 01/31/2012 KATELYN HENRIQUEZ APRN 61 6.2 CYST OF [place] 01/31/2012 KATELYN HENRIQUEZ APRN 618.01 CYSTOCELE MIDLINE 01/31/2012 KATELYN HENRIQUEZ APRN 618.04 RECTOCELE 01/31/2012 KATELYN HENRIQUEZ APRN 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) 01/31/2012 KATELYN HENRIQUEZ APRN V76.10 BREAST CANCER SCREENING 01/31/2012 KATELYN HENRIQUEZ APRN V76.47 VAGINAL PAP SMEAR SCREENING 01/31/2012 EVAN CANO MD 616 .2 CYST OF [place] 01/31/2012 JEROME MD, EVAN N 618 .01 CYSTOCELE MIDLINE 01/31/2012 EVAN CANO MD N 618 .04 RECTOCELE 01/31/2012 EVAN CANO MD 788 .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) 01/31/2012 EVAN CANO MD N V76 .10 BREAST CANCER SCREENING 01/31/2012 EVAN CANO MD V76 .47 VAGINAL PAP SMEAR SCREENING 01/31/2012 LIDA HANCOCK APRNA S 616.2 CYST OF [place] 01/31/2012 KARISSA VALLE NAHOMY S 618.01 CYSTOCELE MIDLINE 01/31/2012 KARISSA VALLE NAHOMY S 618.04 RECTOCELE 01/31/2012 KRISTYN HANCOCK APRNNDA S 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) 01/31/2012 NAHOMY HANCOCK APRN S V76.10 BREAST CANCER SCREENING 01/31/2012 NAHOMY HANCOCK APRN S V76.47 VAGINAL PAP SMEAR SCREENING 01/31/2012 EVAN CANO MD 616 .2 CYST OF [place] 01/31/2012 EVAN CANO MD N 618 .01 CYSTOCELE MIDLINE 01/31/2012 EVAN CANO MD 618 .04 RECTOCELE 01/31/2012 EVAN CANO MD 788 .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) 01/31/2012 EVAN CAON MD V76 .10 BREAST CANCER SCREENING 01/31/2012 EVAN CANO MD V76 .47 VAGINAL PAP SMEAR SCREENING 01/31/2012 MARISABEL ANDERSON APRN A 61 6.2 CYST OF [place] 01/31/2012 MARISABEL ANDERSON APRN A 618.01 CYSTOCELE MIDLINE 01/31/2012 MARISABEL ANDERSON APRN A 618.04 RECTOCELE 01/31/2012 MARISABEL ANDERSON APRN A 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) 01/31/2012 MARISABEL ANDERSON APRN A V76.10 BREAST CANCER SCREENING 01/31/2012 MARISABEL ANDERSON APRN A V76.47 VAGINAL PAP SMEAR SCREENING 01/31/2012 NAHOMY HANCOCK APRN S 616.2 CYST OF [place] 01/31/2012 NAHOMY HANCOCK APRN S 618.01 CYSTOCELE MIDLINE 01/31/2012 NAHOMY HANCOCK APRN S 618.04 RECTOCELE 01/31/2012 KARISSA VALLE NAHOMY S 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) 01/31/2012 NAHOMY HANCOCK APRN S V76.10 BREAST CANCER SCREENING 01/31/2012 NAHOMY HANCOCK APRN S V76.47 VAGINAL PAP SMEAR SCREENING 01/31/2012 KATELYN HENRIQUEZ APRN 61 6.2 CYST OF [place] 01/31/2012 KATELYN HENRIQUEZ APRN 618.01 CYSTOCELE MIDLINE 01/31/2012 KATELYN HENRIQUEZ APRN 618.04 RECTOCELE 01/31/2012 KATELYN HENRIQUEZ APRN 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) 01/31/2012 KATELYN HENRIQUEZ APRN V76.10 BREAST CANCER SCREENING 01/31/2012 KATELYN HENRIQUEZ APRN V76.47 VAGINAL PAP SMEAR SCREENING 01/31/2012 DAVEY STEPHENSON MD 616.2 CYST OF [place] 01/31/2012 DAVEY STEPHENSON MD 618.0 1 CYSTOCELE MIDLINE 01/31/2012 DAVEY STEPHENSON MD 618.0 4 RECTOCELE 01/31/2012 DAVEY STEPHENSON MD 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) 01/31/2012 DAVEY STEPHENSON MD V76.1 0 BREAST CANCER SCREENING 01/31/2012 DAVEY STEPHENSON MD V76.4 7 VAGINAL PAP SMEAR SCREENING 01/31/2012 MARIALUISA DPM, ORLY 616.2 CYST OF [place] 01/31/2012 MARIALUISA DPM, ORLY 618.01 CYSTOCELE MIDLINE 01/31/2012 MARIALUISA DPM, ORLY 618.04 RECTOCELE 01/31/2012 MARIALUISA DPM, ORLY 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) 01/31/2012 MARIALUISA DPM, ORLY V76.10 BREAST CANCER SCREENING 01/31/2012 MARIALUISA DPM, ORLY V76.47 VAGINAL PAP SMEAR SCREENING 01/31/2012 KARISSA [employer] BPM ARCHITECT, NAHOMY S 616.2 CYST OF [place] 01/31/2012 KARISSA [employer] BPM ARCHITECT, NAHOMY S 618.01 CYSTOCELE MIDLINE 01/31/2012 KARISAS [employer] BPM ARCHITECT, NAHOMY S 618.04 RECTOCELE 01/31/2012 KARISSA [employer] BPM ARCHITECT, NAHOMY S 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) 01/31/2012 KARISSA [employer] BPM ARCHITECT, NAHOMY S V76.10 BREAST CANCER SCREENING 01/31/2012 KARISSA [employer] BPM ARCHITECT, NAHOMY S V76.47 VAGINAL PAP SMEAR SCREENING 01/31/2012 MARIALUISA DPM, ORLY 616.2 CYST OF [place] 01/31/2012 MARIALUISA DPM, ORLY 618.01 CYSTOCELE MIDLINE 01/31/2012 MARIALUISA DPM, ORLY 618.04 RECTOCELE 01/31/2012 MARIALUISA DPM, ORLY 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) 01/31/2012 MARIALUISA DPM, ORLY V76.10 BREAST CANCER SCREENING 01/31/2012 MARIALUISA DPM, ORLY V76.47 VAGINAL PAP SMEAR SCREENING 01/31/2012 KARISSA [employer] BPM ARCHITECT, NAHOMY S 616.2 CYST OF [place] 01/31/2012 KARISSA [employer] BPM ARCHITECT, NAHOMY S 618.01 CYSTOCELE MIDLINE 01/31/2012 KARISSA [employer] BPM ARCHITECT, NAHOMY S 618.04 RECTOCELE 01/31/2012 KARISSA [employer] BPM ARCHITECT, NAHOMY S 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) 01/31/2012 KARISSA [employer] BPM ARCHITECT, NAHOMY S V76.10 BREAST CANCER SCREENING 01/31/2012 KARISSA [employer] BPM ARCHITECT, NAHOMY S V76.47 VAGINAL PAP SMEAR SCREENING 01/31/2012 KARISSA [employer] BPM ARCHITECT, NAHOMY S 616.2 CYST OF [place] 01/31/2012 KARISSA [employer] BPM ARCHITECT, NAHOMY S 618.01 CYSTOCELE MIDLINE 01/31/2012 KARISSA [employer] BPM ARCHITECT, NAHOMY S 618.04 RECTOCELE 01/31/2012 KARISSA [employer] BPM ARCHITECT, NAHOMY S 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) 01/31/2012 KARISSA VALLE, NAHOMY S V76.10 BREAST CANCER SCREENING 01/31/2012 KRISTYN HANCOCK APRNNDA S V76.47 VAGINAL PAP SMEAR SCREENING 01/31/2012 KRISTYN HANCOCK APRNNDA S 616.2 CYST OF [place] 01/31/2012 KARISSA [employer] BPM ARCHITECT, NAHOMY S 618.01 CYSTOCELE MIDLINE 01/31/2012 KARISSA VALLE, NAHOMY S 618.04 RECTOCELE 01/31/2012 KARISSA VALLE, NAHOMY S 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) 01/31/2012 KRISTYN HANCOCK APRNNDA S V76.10 BREAST CANCER SCREENING 01/31/2012 KRISTYN HANCOCK APRNNDA S V76.47 VAGINAL PAP SMEAR SCREENING 02/01/2012 Ot 625.9 FEM GENITAL SYMPTOMS NOS 02/05/2012 596.89 OTH ER SPECIFIED DISORDERS OF BLADDER 02/05/2012 625.9 PELV IC PAIN 02/05/2012 788.30 URI NARY INCONTINENCE UNSPECIFIED 02/05/2012 596.89 OTH ER SPECIFIED DISORDERS OF BLADDER 02/05/2012 625.9 PELV IC PAIN 02/05/2012 788.30 URI NARY INCONTINENCE UNSPECIFIED 02/05/2012 596.89 OTH ER SPECIFIED DISORDERS OF BLADDER 02/05/2012 625.9 PELV IC PAIN 02/05/2012 788.30 URI NARY INCONTINENCE UNSPECIFIED 02/05/2012 DAVEY STEPHENSON MD 596.8 9 OTHER SPECIFIED DISORDERS OF BLADDER 02/05/2012 DAVEY STEPHENSON MD 625.9 PELVIC PAIN 02/05/2012 DAVEY STEPHENSON MD 788.3 0 URINARY INCONTINENCE UNSPECIFIED 02/05/2012 ROEL LOWERY APRN R 596.89 OTHER SPECIFIED DISORDERS OF BLADDER 02/05/2012 ROEL LOWERY APRN R 625.9 PELVIC PAIN 02/05/2012 ROEL LOWERY APRN R 788.30 URINARY INCONTINENCE UNSPECIFIED 02/05/2012 DAVEY STEPHENSON MD 596.8 9 OTHER SPECIFIED DISORDERS OF BLADDER 02/05/2012 DAVEY STEPHENSON MD 625.9 PELVIC PAIN 02/05/2012 DAVEY STEPHENSON MD 788.3 0 URINARY INCONTINENCE UNSPECIFIED 02/05/2012 ISAACS DO, OLEG K 596.89 OTHER SPECIFIED DISORDERS OF BLADDER 02/05/2012 ISAACS DO, OLEG K 625.9 PELVIC PAIN 02/05/2012 ISAACS DO, OLEG K 788.30 URINARY INCONTINENCE UNSPECIFIED 02/05/2012 DAVEY STEPHENSON MD 596.8 9 OTHER SPECIFIED DISORDERS OF BLADDER 02/05/2012 DAVEY STPEHENSON MD 625.9 PELVIC PAIN 02/05/2012 DAVEY STEPHENSON MD 788.3 0 URINARY INCONTINENCE UNSPECIFIED 02/05/2012 KATELYN HENRIQUEZ APRN 596.89 OTHER SPECIFIED DISORDERS OF BLADDER 02/05/2012 KATELYN HENRIQUEZ APRN 62 5.9 PELVIC PAIN 02/05/2012 KATELYN HENRIQUEZ APRN 788.30 URINARY INCONTINENCE UNSPECIFIED 02/05/2012 EVAN CANO MD N 596 .89 OTHER SPECIFIED DISORDERS OF BLADDER 02/05/2012 EVAN CANO MD N 625 .9 PELVIC PAIN 02/05/2012 EVAN CANO MD N 788 .30 URINARY INCONTINENCE UNSPECIFIED 02/05/2012 LIDA HANCOCK APRNA S 596.89 OTHER SPECIFIED DISORDERS OF BLADDER 02/05/2012 KRISTYN HANCOCK APRNNDA S 625.9 PELVIC PAIN 02/05/2012 KRISTYN HANCOCK APRNNDA S 788.30 URINARY INCONTINENCE UNSPECIFIED 02/05/2012 EVAN CANO MD N 596 .89 OTHER SPECIFIED DISORDERS OF BLADDER 02/05/2012 EVAN CANO MD N 625 .9 PELVIC PAIN 02/05/2012 EVAN CANO MD N 788 .30 URINARY INCONTINENCE UNSPECIFIED 02/05/2012 MONICA APRN, MARISABEL A 596.89 OTHER SPECIFIED DISORDERS OF BLADDER 02/05/2012 MONICA [employer] BPM ARCHITECT, MARISABEL A 62 5.9 PELVIC PAIN 02/05/2012 MONICA APRN, MARISABEL A 788.30 URINARY INCONTINENCE UNSPECIFIED 02/05/2012 KARISSA VALLE NAHOMY S 596.89 OTHER SPECIFIED DISORDERS OF BLADDER 02/05/2012 KARISSA VALLE NAHOMY S 625.9 PELVIC PAIN 02/05/2012 KARISSA VALLE NAHOMY S 788.30 URINARY INCONTINENCE UNSPECIFIED 02/05/2012 FLOR[place] [employer] BPM ARCHITECT, KATELYN T 596.89 OTHER SPECIFIED DISORDERS OF BLADDER 02/05/2012 FLORENCE KAETLYN VALLE T 62 5.9 PELVIC PAIN 02/05/2012 FLORENCE TORI, KATELYN T 788.30 URINARY INCONTINENCE UNSPECIFIED 02/05/2012 DAVEY STEPHENSON MD 596.8 9 OTHER SPECIFIED DISORDERS OF BLADDER 02/05/2012 DAVEY STEPHENSON MD 625.9 PELVIC PAIN 02/05/2012 DAVEY STEPHENSON MD 788.3 0 URINARY INCONTINENCE UNSPECIFIED 02/05/2012 MARIALUISA DPM, ORLY 596.89 OTHER SPECIFIED DISORDERS OF BLADDER 02/05/2012 MARIALUISA DPM, ORLY 625.9 PELVIC PAIN 02/05/2012 MARIALUISA DPM, ORLY 788.30 URINARY INCONTINENCE UNSPECIFIED 02/05/2012 KARISSA [employer] BPM ARCHITECT, NAHOMY S 596.89 OTHER SPECIFIED DISORDERS OF BLADDER 02/05/2012 KARISSA [employer] BPM ARCHITECT, NAHOMY S 625.9 PELVIC PAIN 02/05/2012 KARISSA [employer] BPM ARCHITECT, NAHOMY S 788.30 URINARY INCONTINENCE UNSPECIFIED 02/05/2012 MARIALUISA DPM, ORLY 596.89 OTHER SPECIFIED DISORDERS OF BLADDER 02/05/2012 MARIALUISA DPM, ORLY 625.9 PELVIC PAIN 02/05/2012 MARIALUISA DPM, ORLY 788.30 URINARY INCONTINENCE UNSPECIFIED 02/05/2012 KARISSA [employer] BPM ARCHITECT, NAHOMY S 596.89 OTHER SPECIFIED DISORDERS OF BLADDER 02/05/2012 KARISSA [employer] BPM ARCHITECT, NAHOMY S 625.9 PELVIC PAIN 02/05/2012 KARISSA [employer] BPM ARCHITECT, NAHOMY S 788.30 URINARY INCONTINENCE UNSPECIFIED 02/05/2012 KARISSA [employer] BPM ARCHITECT, NAHOMY S 596.89 OTHER SPECIFIED DISORDERS OF BLADDER 02/05/2012 KARISSA [employer] BPM ARCHITECT, NAHOMY S 625.9 PELVIC PAIN 02/05/2012 KARISSA [employer] BPM ARCHITECT, NAHOMY S 788.30 URINARY INCONTINENCE UNSPECIFIED 02/05/2012 KARISSA [employer] BPM ARCHITECT, NAHOMY S 596.89 OTHER SPECIFIED DISORDERS OF BLADDER 02/05/2012 KARISSA [employer] BPM ARCHITECT, NAHOMY S 625.9 PELVIC PAIN 02/05/2012 KARISSA [employer] BPM ARCHITECT, NAHOMY S 788.30 URINARY INCONTINENCE UNSPECIFIED 02/05/2012 Ot 618.01 CYS TOCELE, MIDLINE 02/05/2012 Ot 618.04 REC TOCELE 02/05/2012 Ot 625.9 FEM GENITAL SYMPTOMS NOS 02/05/2012 Ot 733.90 BON E CARTILAGE DIS NOS 02/07/2012 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/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 02/07/2012 Ot 564.00 UNS PEC CONSTIPATION 02/07/2012 Ot 625.9 FEM GENITAL SYMPTOMS NOS 02/07/2012 Ot 733.90 BON E CARTILAGE DIS NOS 02/07/2012 Ot 787.60 FUL L INCONTINENCE OF FECES 02/07/2012 Ot 788.31 URG E INCONTINENCE 02/10/2012 787.91 TAMIKA RRHEA 02/10/2012 787.91 TAMIKA RRHEA 02/10/2012 787.91 TAMIKA RRHEA 02/10/2012 DAVEY STEPHENSON MD 787.9 1 DIARRHEA 02/10/2012 ROEL LOWERY APRN 787.91 DIARRHEA 02/10/2012 DAVEY STEPHENSON MD 787.9 1 DIARRHEA 02/10/2012 OLEG ISAACS DO K 787.91 DIARRHEA 02/10/2012 DAVEY STEPHENSON MD 787.9 1 DIARRHEA 02/10/2012 KATELYN HENRIQUEZ APRN 787.91 DIARRHEA 02/10/2012 EVAN CANO MD 787 .91 DIARRHEA 02/10/2012 NAHOMY HANCOCK APRN 787.91 DIARRHEA 02/10/2012 EVAN CANO MD 787 .91 DIARRHEA 02/10/2012 MARISABEL ANDERSON APRN 787.91 DIARRHEA 02/10/2012 NAHOMY HANCOCK APRN S 787.91 DIARRHEA 02/10/2012 KATELYN HENRIQUEZ APRN 787.91 DIARRHEA 02/10/2012 DAVEY STEPHENSON MD 787.9 1 DIARRHEA 02/10/2012 MARIALUISA DPM, ORLY 787.91 DIARRHEA 02/10/2012 NAHOMY HANCOCK APRN S 787.91 DIARRHEA 02/10/2012 MARIALUISA DPM, ORLY 787.91 DIARRHEA 02/10/2012 NAHOMY HANCOCK APRN S 787.91 DIARRHEA 02/10/2012 KARISSA [employer] BPM ARCHITECT, NAHOMY S 787.91 DIARRHEA 02/10/2012 LIDA HANCOCK APRNA S 787.91 DIARRHEA 02/13/2012 Ot 616.2 COY [place] CYST 02/13/2012 Ot 625.9 FEM GENITAL SYMPTOMS NOS 02/13/2012 Ot 787.01 SHEFALI SEA WITH VOMITING 02/15/2012 Ot 625.9 FEM GENITAL SYMPTOMS NOS 02/15/2012 Ot 780.2 SYNC OPE AND COLLAPSE 02/20/2012 Ot 616.2 COY [place] CYST 02/27/2012 V07.4 HORM ONE REPLACEMENT THERAPY (POSTMENOPAUSAL) 02/27/2012 V07.4 HORM ONE REPLACEMENT THERAPY (POSTMENOPAUSAL) 02/27/2012 V07.4 HORM ONE REPLACEMENT THERAPY (POSTMENOPAUSAL) 02/27/2012 DAVEY STEPHENSON MD V07.4 HORMONE REPLACEMENT THERAPY (POSTMENOPAUSAL) 02/27/2012 ROEL LOWERY APRN V07.4 HORMONE REPLACEMENT THERAPY (POSTMENOPAUSAL) 02/27/2012 DAVEY STEPHENSON MD V07.4 HORMONE REPLACEMENT THERAPY (POSTMENOPAUSAL) 02/27/2012 OLEG ISAACS DO V07.4 HORMONE REPLACEMENT THERAPY (POSTMENOPAUSAL) 02/27/2012 DAVEY STEPHENSON MD V07.4 HORMONE REPLACEMENT THERAPY (POSTMENOPAUSAL) 02/27/2012 KATELYN HENRIQUEZ APRN V0 7.4 HORMONE REPLACEMENT THERAPY (POSTMENOPAUSAL) 02/27/2012 EVAN CANO MD V07 .4 HORMONE REPLACEMENT THERAPY (POSTMENOPAUSAL) 02/27/2012 NAHOMY HANCOCK APRN S V07.4 HORMONE REPLACEMENT THERAPY (POSTMENOPAUSAL) 02/27/2012 EVAN CANO MD V07 .4 HORMONE REPLACEMENT THERAPY (POSTMENOPAUSAL) 02/27/2012 MARISABEL ANDERSON APRN V0 7.4 HORMONE REPLACEMENT THERAPY (POSTMENOPAUSAL) 02/27/2012 NAHOMY HANCOCK APRN S V07.4 HORMONE REPLACEMENT THERAPY (POSTMENOPAUSAL) 02/27/2012 KATELYN HENRIQUEZ APRN V0 7.4 HORMONE REPLACEMENT THERAPY (POSTMENOPAUSAL) 02/27/2012 DAVEY STEPHENSON MD V07.4 HORMONE REPLACEMENT THERAPY (POSTMENOPAUSAL) 02/27/2012 ORLY ELAM DPM V07.4 HORMONE REPLACEMENT THERAPY (POSTMENOPAUSAL) 02/27/2012 NAHOMY HANCOCK APRN S V07.4 HORMONE REPLACEMENT THERAPY (POSTMENOPAUSAL) 02/27/2012 MARIALUISA DPM, ORLY V07.4 HORMONE REPLACEMENT THERAPY (POSTMENOPAUSAL) 02/27/2012 NAHOMY HANCOCK APRN S V07.4 HORMONE REPLACEMENT THERAPY (POSTMENOPAUSAL) 02/27/2012 NAHOMY HANCOCK APRN S V07.4 HORMONE REPLACEMENT THERAPY (POSTMENOPAUSAL) 02/27/2012 NAHOMY HANCOCK APRN S V07.4 HORMONE REPLACEMENT THERAPY (POSTMENOPAUSAL) 03/03/2012 Ot 616.10 VAG INITIS NOS 03/03/2012 Ot E930.9 ADV EFF ANTIBIOTIC NOS 04/11/2012 780.79 fatigue 04/11/2012 782.7 SPON TANEOUS ECCHYMOSES 04/11/2012 780.79 fatigue 04/11/2012 782.7 SPON TANEOUS ECCHYMOSES 04/11/2012 780.79 fatigue 04/11/2012 782.7 SPON TANEOUS ECCHYMOSES 04/11/2012 DAVEY STEPHENSON MD 780.7 9 fatigue 04/11/2012 DAVEY STEPHENSON MD 782.7 SPONTANEOUS ECCHYMOSES 04/11/2012 ROEL LOWERY APRN 780.79 fatigue 04/11/2012 ROEL LOWERY APRN R 782.7 SPONTANEOUS ECCHYMOSES 04/11/2012 DAVEY STEPHENSON MD 780.7 9 fatigue 04/11/2012 DAVEY STEPHENSON MD 782.7 SPONTANEOUS ECCHYMOSES 04/11/2012 ISAACS DOOLEG K 780.79 fatigue 04/11/2012 ISAACS YURIDIA AGUILAA K 782.7 SPONTANEOUS ECCHYMOSES 04/11/2012 DAVEY STEPHENSON MD 780.7 9 FATIGUE 04/11/2012 DAVEY STEPHENSON MD 782.7 SPONTANEOUS ECCHYMOSES 04/11/2012 KATELYN HENRIQUEZ APRN 780.79 FATIGUE 04/11/2012 KATELYN HENRIQUEZ APRN 78 2.7 SPONTANEOUS ECCHYMOSES 04/11/2012 EVAN CANO MD 780 .79 FATIGUE 04/11/2012 EVAN CANO MD 782 .7 SPONTANEOUS ECCHYMOSES 04/11/2012 NAHOMY HANCOCK APRN 780.79 FATIGUE 04/11/2012 KARISSA [employer] BPM ARCHITECT, NAHOMY S 782.7 SPONTANEOUS ECCHYMOSES 04/11/2012 EVAN CANO MD N 780 .79 FATIGUE 04/11/2012 EVAN CANO MD N 782 .7 SPONTANEOUS ECCHYMOSES 04/11/2012 MONICA VALLE, MARISABEL A 780.79 FATIGUE 04/11/2012 MONICAMILLER VALLE, MARISABEL A 78 2.7 SPONTANEOUS ECCHYMOSES 04/11/2012 KARISSA VALLE, NAHOMY S 780.79 FATIGUE 04/11/2012 KARISSA VALLE, NAHOMY S 782.7 SPONTANEOUS ECCHYMOSES 04/11/2012 KATELYN HENRIUQEZ APRN 780.79 FATIGUE 04/11/2012 KATELYN HENRIQUEZ APRN 78 2.7 SPONTANEOUS ECCHYMOSES 04/11/2012 DAVEY STEPHENSON MD 780.7 9 FATIGUE 04/11/2012 DAVEY STEPHENSON MD 782.7 SPONTANEOUS ECCHYMOSES 04/11/2012 MARIALUISA DPM, ORLY 780.79 FATIGUE 04/11/2012 MARIALUISA DPM, ORLY 782.7 SPONTANEOUS ECCHYMOSES 04/11/2012 KARISSA VALLE, NAHOMY S 780.79 FATIGUE 04/11/2012 KARISSA VALLE, NAHOMY S 782.7 SPONTANEOUS ECCHYMOSES 04/11/2012 MARIALUISA DPM, ORLY 780.79 FATIGUE 04/11/2012 MARIALUISA DPM, ORLY 782.7 SPONTANEOUS ECCHYMOSES 04/11/2012 KARISSA VALLE, NAHOMY S 780.79 FATIGUE 04/11/2012 KARISSA VALLE, NAHOMY S 782.7 SPONTANEOUS ECCHYMOSES 04/11/2012 KARISSA VALLE, NAHOMY S 780.79 FATIGUE 04/11/2012 KARISSA VALLE, NAHOMY S 782.7 SPONTANEOUS ECCHYMOSES 04/11/2012 KARISSA VALLE, NAHOMY S 780.79 FATIGUE 04/11/2012 KARISSA VALLE, NAHOMY S 782.7 SPONTANEOUS ECCHYMOSES 04/24/2012 268.9 UNSP ECIFIED VITAMIN D DEFICIENCY 04/24/2012 338.29 CHR ONIC PAIN 04/24/2012 780.96 GEN ERALIZED PAIN 04/24/2012 268.9 UNSP ECIFIED VITAMIN D DEFICIENCY 04/24/2012 338.29 CHR ONIC PAIN 04/24/2012 780.96 GEN ERALIZED PAIN 04/24/2012 268.9 UNSP ECIFIED VITAMIN D DEFICIENCY 04/24/2012 338.29 CHR ONIC PAIN 04/24/2012 780.96 GEN ERALIZED PAIN 04/24/2012 DAVEY STEPHENSON MD 268.9 UNSPECIFIED VITAMIN D DEFICIENCY 04/24/2012 DAVEY STEPHENSON MD 338.2 9 CHRONIC PAIN 04/24/2012 DAVEY STEPHENSON MD 780.9 6 GENERALIZED PAIN 04/24/2012 MYNOR LOWERY APRNIA R 268.9 UNSPECIFIED VITAMIN D DEFICIENCY 04/24/2012 MYNOR LOWERY APRNIA R 338.29 CHRONIC PAIN 04/24/2012 MYNOR LOWERY APRNIA R 780.96 GENERALIZED PAIN 04/24/2012 DAVEY STEPHENSON MD 268.9 UNSPECIFIED VITAMIN D DEFICIENCY 04/24/2012 DAVEY STEPHENSON MD 338.2 9 CHRONIC PAIN 04/24/2012 DAVEY STEPHENSON MD 780.9 6 GENERALIZED PAIN 04/24/2012 ISAACS DO, OLEG K 268.9 UNSPECIFIED VITAMIN D DEFICIENCY 04/24/2012 ISAACS DO, OLEG K 338.29 CHRONIC PAIN 04/24/2012 ISAACS DO, OLEG K 780.96 GENERALIZED PAIN 04/24/2012 DAVEY STEPHENSON MD 268.9 UNSPECIFIED VITAMIN D DEFICIENCY 04/24/2012 DAVEY STEPHENSON MD 338.2 9 CHRONIC PAIN 04/24/2012 DAVEY STEPHENSON MD 780.9 6 GENERALIZED PAIN 04/24/2012 KATELYN HENRIQUEZ APRN 26 8.9 UNSPECIFIED VITAMIN D DEFICIENCY 04/24/2012 KATELYN HENRIQUEZ APRN 338.29 CHRONIC PAIN 04/24/2012 KATELYN HENRIQUEZ APRN 780.96 GENERALIZED PAIN 04/24/2012 EVAN CANO MD 268 .9 UNSPECIFIED VITAMIN D DEFICIENCY 04/24/2012 EVAN CANO MD N 338 .29 CHRONIC PAIN 04/24/2012 EVAN CANO MD 780 .96 GENERALIZED PAIN 04/24/2012 NAHOMY HANCOCK APRN S 268.9 UNSPECIFIED VITAMIN D DEFICIENCY 04/24/2012 KARISSA [employer] BPM ARCHITECT, NAHOMY S 338.29 CHRONIC PAIN 04/24/2012 KARISSA VALLE, NAHOMY S 780.96 GENERALIZED PAIN 04/24/2012 EVAN CANO MD N 268 .9 UNSPECIFIED VITAMIN D DEFICIENCY 04/24/2012 EVAN CANO MD N 338 .29 CHRONIC PAIN 04/24/2012 EVAN CANO MD N 780 .96 GENERALIZED PAIN 04/24/2012 MONICA IBM BPM ARCHITECT, MARISABEL A 26 8.9 UNSPECIFIED VITAMIN D DEFICIENCY 04/24/2012 MONICA [employer] BPM ARCHITECT, MARISABEL A 338.29 CHRONIC PAIN 04/24/2012 MONICA [employer] BPM ARCHITECT, MARISABEL A 780.96 GENERALIZED PAIN 04/24/2012 KARISSA VALLE NAHOMY S 268.9 UNSPECIFIED VITAMIN D DEFICIENCY 04/24/2012 KARISSA VALLE, NAHOMY S 338.29 CHRONIC PAIN 04/24/2012 KARISSA VALLE, NAHOMY S 780.96 GENERALIZED PAIN 04/24/2012 KATELYN HENRIQUEZ APRN T 26 8.9 UNSPECIFIED VITAMIN D DEFICIENCY 04/24/2012 FLORENCE VALLE KATELYN T 338.29 CHRONIC PAIN 04/24/2012 FLORENCE VALLE KATELYN T 780.96 GENERALIZED PAIN 04/24/2012 DAVEY STEPHENSON MD 268.9 UNSPECIFIED VITAMIN D DEFICIENCY 04/24/2012 DAVEY STEPHENSON MD 338.2 9 CHRONIC PAIN 04/24/2012 DAVEY STEPHENSON MD 780.9 6 GENERALIZED PAIN 04/24/2012 MARIALUISA DPM, ORLY 268.9 UNSPECIFIED VITAMIN D DEFICIENCY 04/24/2012 MARIALUISA DPM, ORLY 338.29 CHRONIC PAIN 04/24/2012 MARIALUISA DPM, ORLY 780.96 GENERALIZED PAIN 04/24/2012 KARISSA VALLE, NAHOMY S 268.9 UNSPECIFIED VITAMIN D DEFICIENCY 04/24/2012 KARISSA VALLE, NAHOMY S 338.29 CHRONIC PAIN 04/24/2012 KARISSA VALLE, NAHOMY S 780.96 GENERALIZED PAIN 04/24/2012 MARIALUISA DPM, ORLY 268.9 UNSPECIFIED VITAMIN D DEFICIENCY 04/24/2012 MARIALUISA DPM, ORLY 338.29 CHRONIC PAIN 04/24/2012 MARIALUISA DPM, ORLY 780.96 GENERALIZED PAIN 04/24/2012 KARISSA VALLE NAHOMY S 268.9 UNSPECIFIED VITAMIN D DEFICIENCY 04/24/2012 KARISSA [employer] BPM ARCHITECT, NAHOMY S 338.29 CHRONIC PAIN 04/24/2012 KARISSA [employer] BPM ARCHITECT, NAHOMY S 780.96 GENERALIZED PAIN 04/24/2012 KARISSA [employer] BPM ARCHITECT, NAHOMY S 268.9 UNSPECIFIED VITAMIN D DEFICIENCY 04/24/2012 KARISSA [employer] BPM ARCHITECT, NAHOMY S 338.29 CHRONIC PAIN 04/24/2012 KARISSA [employer] BPM ARCHITECT, NAHOMY S 780.96 GENERALIZED PAIN 04/24/2012 KARISSA [employer] BPM ARCHITECT, NAHOMY S 268.9 UNSPECIFIED VITAMIN D DEFICIENCY 04/24/2012 KARISSA [employer] BPM ARCHITECT, NAHOMY S 338.29 CHRONIC PAIN 04/24/2012 KARISSA [employer] BPM ARCHITECT, NAHOMY S 780.96 GENERALIZED PAIN 05/05/2012 Ot 465.9 ACUT E URI NOS 05/05/2012 Ot 729.1 MYAL JESSICA AND MYOSITIS NOS 05/05/2012 Ot 786.2 COUGH 05/30/2012 703.0 INGR OWING NAIL 05/30/2012 703.0 INGR OWING NAIL 05/30/2012 703.0 INGR OWING NAIL 05/30/2012 DAVEY STEPHENSON MD 703.0 INGROWING NAIL 05/30/2012 BEVERLEY VALLE, ROEL R 703.0 INGROWING NAIL 05/30/2012 DAVEY STEPHENSON MD 703.0 INGROWING NAIL 05/30/2012 DAVEY STEPHENSON MD 703.0 INGROWING NAIL 05/30/2012 KATELYN HENRIQUEZ APRN 70 3.0 INGROWING NAIL 05/30/2012 EVAN CANO MD N 703 .0 INGROWING NAIL 05/30/2012 KARISSA VALLE, NAHOMY S 703.0 INGROWING NAIL 05/30/2012 EVAN CANO MD N 703 .0 INGROWING NAIL 05/30/2012 MARISABEL ANDERSON APRN 70 3.0 INGROWING NAIL 05/30/2012 KARISSA VALLE, NAHOMY S 703.0 INGROWING NAIL 05/30/2012 KATELYN HENRIQUEZ APRN 70 3.0 INGROWING NAIL 05/30/2012 DAVEY STEPHENSON MD 703.0 INGROWING NAIL 05/30/2012 MARIALUISA DPM, ORLY 703.0 INGROWING NAIL 05/30/2012 KARISSA [employer] BPM ARCHITECT, NAHOMY S 703.0 INGROWING NAIL 05/30/2012 MARIALUISA DPM, ORLY 703.0 INGROWING NAIL 05/30/2012 KARISSA [employer] BPM ARCHITECT, NAHOMY S 703.0 INGROWING NAIL 05/30/2012 KARISSA [employer] BPM ARCHITECT, NAHOMY S 703.0 INGROWING NAIL 05/30/2012 KARISSA [employer] BPM ARCHITECT, NAHOMY S 703.0 INGROWING NAIL 09/12/2012 Ot 726.5 ENTH ESOPATHY OF HIP 09/12/2012 Ot 729.1 MYAL JESSICA AND MYOSITIS NOS 09/12/2012 Ot V57.1 PHYS ICAL THERAPY NEC 09/21/2012 Ot 300.00 ANX IETY STATE NOS 09/21/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 04/18/2013 DAVEY STEPHENSON MD 729.1 MYALGIA AND MYOSITIS UNSPECIFIED 04/18/2013 DAVEY STEPHENSON MD V03.8 2 PPV23 (PNEUMOVAX) DX 04/18/2013 ROEL LOWERY APRN 729.1 MYALGIA AND MYOSITIS UNSPECIFIED 04/18/2013 ROEL LOWERY APRN R V03.82 PPV23 (PNEUMOVAX) DX 04/18/2013 DAVEY STEPHENSON MD 729.1 MYALGIA AND MYOSITIS UNSPECIFIED 04/18/2013 DAVEY STEPHENSON MD V03.8 2 PPV23 (PNEUMOVAX) DX 04/18/2013 DAVEY STEPHENSON MD 729.1 MYALGIA AND MYOSITIS UNSPECIFIED 04/18/2013 DAVEY STEPHENSON MD V03.8 2 PPV23 (PNEUMOVAX) DX 04/18/2013 KATELYN HENRIQUEZ APRN 72 9.1 MYALGIA AND MYOSITIS UNSPECIFIED 04/18/2013 KATELYN HENRIQUEZ APRN V03.82 PPV23 (PNEUMOVAX) DX 04/18/2013 EVAN CANO MD 729 .1 MYALGIA AND MYOSITIS UNSPECIFIED 04/18/2013 EVAN CANO MD V03 .82 PPV23 (PNEUMOVAX) DX 04/18/2013 KARISSA BRIZUELAN, NAHOMY S 729.1 MYALGIA AND MYOSITIS UNSPECIFIED 04/18/2013 KARISSA BRIZUELAN, NAHOMY S V03.82 PPV23 (PNEUMOVAX) DX 04/18/2013 EVAN CANO MD 729 .1 MYALGIA AND MYOSITIS UNSPECIFIED 04/18/2013 EVAN CANO MD V03 .82 PPV23 (PNEUMOVAX) DX 04/18/2013 MONICA [employer] BPM ARCHITECT, MARISABEL A 72 9.1 MYALGIA AND MYOSITIS UNSPECIFIED 04/18/2013 MONICA [employer] BPM ARCHITECT, MARISABEL A V03.82 PPV23 (PNEUMOVAX) DX 04/18/2013 KARISSA VALLE, NAHOMY S 729.1 MYALGIA AND MYOSITIS UNSPECIFIED 04/18/2013 KARISSA VALLE, NAHOMY S V03.82 PPV23 (PNEUMOVAX) DX 04/18/2013 KATELYN HENRIQUEZ APRN 72 9.1 MYALGIA AND MYOSITIS UNSPECIFIED 04/18/2013 KATELYN HENRIQUEZ APRN V03.82 PPV23 (PNEUMOVAX) DX 04/18/2013 DAVEY STEPHENSON MD 729.1 MYALGIA AND MYOSITIS UNSPECIFIED 04/18/2013 DAVEY STEPHENSON MD V03.8 2 PPV23 (PNEUMOVAX) DX 04/18/2013 MARIALUISA DPM, ORLY 729.1 MYALGIA AND MYOSITIS UNSPECIFIED 04/18/2013 MARIALUISA DPM, ORLY V03.82 PPV23 (PNEUMOVAX) DX 04/18/2013 KRISTYN HANCOCK APRNNDA S 729.1 MYALGIA AND MYOSITIS UNSPECIFIED 04/18/2013 KARISSA BRIZUELAN, NAHOMY S V03.82 PPV23 (PNEUMOVAX) DX 04/18/2013 MARAILUISA DPM, ORLY 729.1 MYALGIA AND MYOSITIS UNSPECIFIED 04/18/2013 MARIALUISA DPM, ORLY V03.82 PPV23 (PNEUMOVAX) DX 04/18/2013 KRISTYN HANCOCK APRNNDA S 729.1 MYALGIA AND MYOSITIS UNSPECIFIED 04/18/2013 KRISTYN HANCOCK APRNNDA S V03.82 PPV23 (PNEUMOVAX) DX 04/18/2013 KARISSA VALLE, NAHOMY S 729.1 MYALGIA AND MYOSITIS UNSPECIFIED 04/18/2013 KARISSA VALLE, NAHOMY S V03.82 PPV23 (PNEUMOVAX) DX 04/18/2013 KARISSA VALLE, NAHOMY S 729.1 MYALGIA AND MYOSITIS UNSPECIFIED 04/18/2013 KARISSA BRIZUELAN, NAHOMY S V03.82 PPV23 (PNEUMOVAX) DX 05/16/2013 BEVERLEY VALLE ROEL R 780.4 DIZZINESS AND VERTIGO 05/16/2013 BEVERLEY VALLE ROEL R 787.02 NAUSEA ALONE 05/16/2013 DAVEY STEPHENSON MD 780.4 DIZZINESS AND VERTIGO 05/16/2013 DAVEY STEPHENSON MD 787.0 2 NAUSEA ALONE 05/16/2013 DAVEY STEPHENSON MD 780.4 DIZZINESS AND VERTIGO 05/16/2013 DAVEY STEPHENSON MD 787.0 2 NAUSEA ALONE 05/16/2013 KATELYN HENRIQUEZ APRN 78 0.4 DIZZINESS AND VERTIGO 05/16/2013 KATELYN HENRIQUEZ APRN 787.02 NAUSEA ALONE 05/16/2013 EVAN CANO MD N 780 .4 DIZZINESS AND VERTIGO 05/16/2013 EVAN CANO MD N 787 .02 NAUSEA ALONE 05/16/2013 LIDA HANCOCK APRNA S 780.4 DIZZINESS AND VERTIGO 05/16/2013 LIDA HANCOCK APRNA S 787.02 NAUSEA ALONE 05/16/2013 EVAN CANO MD N 780 .4 DIZZINESS AND VERTIGO 05/16/2013 EVAN CANO MD 787 .02 NAUSEA ALONE 05/16/2013 MONICAMILLER VALLE MARISABEL A 78 0.4 DIZZINESS AND VERTIGO 05/16/2013 MARISABEL ANDERSON APRN A 787.02 NAUSEA ALONE 05/16/2013 KARISSA VALLE NAHOMY S 780.4 DIZZINESS AND VERTIGO 05/16/2013 KARISSA VALLE NAHOMY S 787.02 NAUSEA ALONE 05/16/2013 KATELYN HENRIQUEZ APRN 78 0.4 DIZZINESS AND VERTIGO 05/16/2013 KATELYN HENRIQUEZ APRN 787.02 NAUSEA ALONE 05/16/2013 DAVEY STEPHENSON MD 780.4 DIZZINESS AND VERTIGO 05/16/2013 DAVEY STEPHNESON MD 787.0 2 NAUSEA ALONE 05/16/2013 MARIALUISA DPM, ORLY 780.4 DIZZINESS AND VERTIGO 05/16/2013 MARIALUISA DPM, ORLY 787.02 NAUSEA ALONE 05/16/2013 KARISSA [employer] BPM ARCHITECT, NAHOMY S 780.4 DIZZINESS AND VERTIGO 05/16/2013 KARISSA [employer] BPM ARCHITECT, NAHOMY S 787.02 NAUSEA ALONE 05/16/2013 MARIALUISA DPM, ORLY 780.4 DIZZINESS AND VERTIGO 05/16/2013 MARIALUISA DPM, ORLY 787.02 NAUSEA ALONE 05/16/2013 KARISSACHRISTOPHER VALLE, NAHOMY S 780.4 DIZZINESS AND VERTIGO 05/16/2013 KARISSA [employer] BPM ARCHITECT, NAHOMY S 787.02 NAUSEA ALONE 05/16/2013 KARISSA [employer] BPM ARCHITECT, NAHOMY S 780.4 DIZZINESS AND VERTIGO 05/16/2013 KARISSA [employer] BPM ARCHITECT, NAHOMY S 787.02 NAUSEA ALONE 05/16/2013 KARISSA [employer] BPM ARCHITECT, NAHOMY S 780.4 DIZZINESS AND VERTIGO 05/16/2013 KARISSACHRISTOPHER VALLE, NAHOMY S 787.02 NAUSEA ALONE 05/20/2013 DAVEY STEPHENSON MD 461.9 ACUTE SINUSITIS UNSPECIFIED 05/20/2013 DAVEY STEPHENSON MD 461.9 ACUTE SINUSITIS UNSPECIFIED 05/20/2013 KATELYN HENRIQUEZ APRN 46 1.9 ACUTE SINUSITIS UNSPECIFIED 05/20/2013 EVAN CANO MD 461 .9 ACUTE SINUSITIS UNSPECIFIED 05/20/2013 KARISSA VALLE NAHOMY S 461.9 ACUTE SINUSITIS UNSPECIFIED 05/20/2013 EVAN CANO MD 461 .9 ACUTE SINUSITIS UNSPECIFIED 05/20/2013 MARISABEL ANDERSON APRN 46 1.9 ACUTE SINUSITIS UNSPECIFIED 05/20/2013 KARISSA VALLE NAHOMY S 461.9 ACUTE SINUSITIS UNSPECIFIED 05/20/2013 KATELYN HENRIQUEZ APRN 46 1.9 ACUTE SINUSITIS UNSPECIFIED 05/20/2013 DAVEY STEPHENSON MD 461.9 ACUTE SINUSITIS UNSPECIFIED 05/20/2013 MARIALUISA DPM, ORLY 461.9 ACUTE SINUSITIS UNSPECIFIED 05/20/2013 KARISSA [employer] BPM ARCHITECT, NAHOMY S 461.9 ACUTE SINUSITIS UNSPECIFIED 05/20/2013 MARIALUISA DPM, ORLY 461.9 ACUTE SINUSITIS UNSPECIFIED 05/20/2013 KARISSA [employer] BPM ARCHITECT, NAHOMY S 461.9 ACUTE SINUSITIS UNSPECIFIED 05/20/2013 KARISSA [employer] BPM ARCHITECT, NAHOMY S 461.9 ACUTE SINUSITIS UNSPECIFIED 05/20/2013 KARISSA [employer] BPM ARCHITECT, NAHOMY S 461.9 ACUTE SINUSITIS UNSPECIFIED 09/16/2013 DAVEY STEPHENSON MD 477.9 ALLERGIC RHINITIS CAUSE UNSPECIFIED 09/16/2013 KATELYN HENRIQUEZ APRN T 47 7.9 ALLERGIC RHINITIS CAUSE UNSPECIFIED 09/16/2013 EVAN CANO MD 477 .9 ALLERGIC RHINITIS CAUSE UNSPECIFIED 09/16/2013 KARISSA [employer] BPM ARCHITECT, NAHOMY S 477.9 ALLERGIC RHINITIS CAUSE UNSPECIFIED 09/16/2013 EVAN CANO MD N 477 .9 ALLERGIC RHINITIS CAUSE UNSPECIFIED 09/16/2013 MONICA [employer] BPM ARCHITECT, MARISABEL A 47 7.9 ALLERGIC RHINITIS CAUSE UNSPECIFIED 09/16/2013 KARISSA [employer] BPM ARCHITECT, NAHOMY S 477.9 ALLERGIC RHINITIS CAUSE UNSPECIFIED 09/16/2013 KATELYN HENRIQUEZ APRN 47 7.9 ALLERGIC RHINITIS CAUSE UNSPECIFIED 09/16/2013 DAVEY STEPHENSON MD 477.9 ALLERGIC RHINITIS CAUSE UNSPECIFIED 09/16/2013 MARIALUISA DPM, ORLY 477.9 ALLERGIC RHINITIS CAUSE UNSPECIFIED 09/16/2013 KARISSA [employer] BPM ARCHITECT, NAHOMY S 477.9 ALLERGIC RHINITIS CAUSE UNSPECIFIED 09/16/2013 MARIALUISA DPM, ORLY 477.9 ALLERGIC RHINITIS CAUSE UNSPECIFIED 09/16/2013 KARISSA [employer] BPM ARCHITECT, NAHOMY S 477.9 ALLERGIC RHINITIS CAUSE UNSPECIFIED 09/16/2013 KARISSA [employer] BPM ARCHITECT, NAHOMY S 477.9 ALLERGIC RHINITIS CAUSE UNSPECIFIED 09/16/2013 KARISSA [employer] BPM ARCHITECT, NAHOMY S 477.9 ALLERGIC RHINITIS CAUSE UNSPECIFIED 12/16/2013 EVAN CANO MD N 373 .00 BLEPHARITIS UNSPECIFIED 12/16/2013 KARISSA VALLE, NAHOMY S 373.00 BLEPHARITIS UNSPECIFIED 12/16/2013 EVAN CANO MD 373 .00 BLEPHARITIS UNSPECIFIED 12/16/2013 MONICA VALLE, MARISABEL A 373.00 BLEPHARITIS UNSPECIFIED 12/16/2013 KARISSA VALLE, NAHOMY S 373.00 BLEPHARITIS UNSPECIFIED 12/16/2013 FLORENCE VALLE, KATELYN Villarreal 373.00 BLEPHARITIS UNSPECIFIED 12/16/2013 SEEMA HOLLIDAY, DAVEY 373.0 0 BLEPHARITIS UNSPECIFIED 12/16/2013 MARIALUISA DPM, ORLY 373.00 BLEPHARITIS UNSPECIFIED 12/16/2013 LIDA HANCOCK APRNA S 373.00 BLEPHARITIS UNSPECIFIED 12/16/2013 MARIALUISA DPM, ORLY 373.00 BLEPHARITIS UNSPECIFIED 12/16/2013 KARISSA VALLE, NAHOMY S 373.00 BLEPHARITIS UNSPECIFIED 12/16/2013 LIDA HANCOCK APRNA S 373.00 BLEPHARITIS UNSPECIFIED 12/16/2013 KARISSA VALLE, NAHOMY S 373.00 BLEPHARITIS UNSPECIFIED 01/29/2014 EVAN CANO MD Ot 300.00 ANXIETY STATE NOS 01/29/2014 EVAN CANO MD Ot 305 .1 TOBACCO USE DISORDER 01/29/2014 EVAN CANO MD Ot 311 DEPRESSIVE DISORDER NEC 01/29/2014 EVAN CANO MD Ot 599 .0 URIN TRACT INFECTION NOS 01/29/2014 EVAN CANO MD Ot 729 .1 MYALGIA AND MYOSITIS NOS 01/29/2014 EVAN ACNO MD Ot 965.09 POISONING-OPIATES NEC 01/29/2014 EVAN CANO MD Ot E950.0 SUICIDE-ANALGESICS 02/05/2014 NAHOMY HANCOCK APRN S 788.63 URINARY URGENCY 02/05/2014 NAHOMY HANCOCK APRN S V70.0 EXAM - ROUTINE H&P 02/05/2014 EVAN CANO MD 788 .63 URINARY URGENCY 02/05/2014 EVAN CANO MD V70 .0 EXAM - ROUTINE H&P 02/05/2014 MONICA [employer] BPM ARCHITECT, MARISABEL A 788.63 URINARY URGENCY 02/05/2014 MONICAMILLER BRIZUELAN, MARISABEL A V7 0.0 EXAM - ROUTINE H&P 02/05/2014 KARISSA VALLE, NAHOMY S 788.63 URINARY URGENCY 02/05/2014 KARISSA VALLE, NAHOMY S V70.0 EXAM - ROUTINE H&P 02/05/2014 FLORENCE VALLE, KATELYN T 788.63 URINARY URGENCY 02/05/2014 FLORENCE VALLE, KATELYN T V7 0.0 EXAM - ROUTINE H&P 02/05/2014 SEEMA HOLLIDAY, DAVEY 788.6 3 URINARY URGENCY 02/05/2014 SEEMA HOLLIDAY, DAVEY V70.0 EXAM - ROUTINE H&P 02/05/2014 MARIALUISA DPM, ORLY 788.63 URINARY URGENCY 02/05/2014 MARIALUISA DPM, ORLY V70.0 EXAM - ROUTINE H&P 02/05/2014 KARISSA VALLE, NAHOMY S 788.63 URINARY URGENCY 02/05/2014 KARISSA VALLE, NAHOMY S V70.0 EXAM - ROUTINE H&P 02/05/2014 MARIALUISA DPM, ORLY 788.63 URINARY URGENCY 02/05/2014 MARIALUISA DPM, ORLY V70.0 EXAM - ROUTINE H&P 02/05/2014 KARISSA VALLE, NAHOMY S 788.63 URINARY URGENCY 02/05/2014 KARISSA [employer] BPM ARCHITECT, NAHOMY S V70.0 EXAM - ROUTINE H&P 02/05/2014 KARISSA VALLE, NAHOMY S 788.63 URINARY URGENCY 02/05/2014 KARISSA BRIZUELAN, NAHOMY S V70.0 EXAM - ROUTINE H&P 02/05/2014 KARISSA VALLE, NAHOMY S 788.63 URINARY URGENCY 02/05/2014 KARISSA VALLE, NAHOMY S V70.0 EXAM - ROUTINE H&P 03/10/2014 JEROME HOLLIDAY, EVAN N 793 .80 UNSPECIFIED (ABNORMAL) MAMMOGRAM 03/10/2014 MONICA VALLE, MARISABEL A 793.80 UNSPECIFIED (ABNORMAL) MAMMOGRAM 03/10/2014 KRISTYN HANCOCK APRNNDA S 793.80 UNSPECIFIED (ABNORMAL) MAMMOGRAM 03/10/2014 KATELYN HENRIQUEZ APRN T 793.80 UNSPECIFIED (ABNORMAL) MAMMOGRAM 03/10/2014 DAVEY STEPHENSON MD 793.8 0 UNSPECIFIED (ABNORMAL) MAMMOGRAM 03/10/2014 MARIALUISA DPM, ORLY 793.80 UNSPECIFIED (ABNORMAL) MAMMOGRAM 03/10/2014 KARISSA [employer] BPM ARCHITECT, NAHOMY S 793.80 UNSPECIFIED (ABNORMAL) MAMMOGRAM 03/10/2014 MARIALUISA DPM, ORLY 793.80 UNSPECIFIED (ABNORMAL) MAMMOGRAM 03/10/2014 KARISSA [employer] BPM ARCHITECT, NAHOMY S 793.80 UNSPECIFIED (ABNORMAL) MAMMOGRAM 03/10/2014 KARISSA [employer] BPM ARCHITECT, NAHOMY S 793.80 UNSPECIFIED (ABNORMAL) MAMMOGRAM 03/10/2014 KARISSA [employer] BPM ARCHITECT, NAHOMY S 793.80 UNSPECIFIED (ABNORMAL) MAMMOGRAM 03/16/2014 MONICA VALLE, MARISABEL A 788.41 URINARY FREQUENCY 03/16/2014 KARISSA VALLE, NAHOMY S 788.41 URINARY FREQUENCY 03/16/2014 KATELYN HENRIQUEZ APRN T 788.41 URINARY FREQUENCY 03/16/2014 DAVEY STEPHENSON MD 788.4 1 URINARY FREQUENCY 03/16/2014 MARIALUISA DPM, ORLY 788.41 URINARY FREQUENCY 03/16/2014 KARISSA [employer] BPM ARCHITECT, NAHOMY S 788.41 URINARY FREQUENCY 03/16/2014 MARIALUISA DPM, ORLY 788.41 URINARY FREQUENCY 03/16/2014 KARISSA [employer] BPM ARCHITECT, NAHOMY S 788.41 URINARY FREQUENCY 03/16/2014 KARISSA [employer] BPM ARCHITECT, NAHOMY S 788.41 URINARY FREQUENCY 03/16/2014 KARISSA [employer] BPM ARCHITECT, NAHOMY S 788.41 URINARY FREQUENCY 03/24/2014 KARISSA VALLE NAHOMY S 477.0 ALLERGIC RHINITIS DUE TO POLLEN 03/24/2014 KRISTYN HANCOCK APRNNDA S 626.7 POSTCOITAL BLEEDING 03/24/2014 KATELYN HENRIQUEZ APRN 47 7.0 ALLERGIC RHINITIS DUE TO POLLEN 03/24/2014 KATELYN HENRIQUEZ APRN 62 6.7 POSTCOITAL BLEEDING 03/24/2014 DAVEY STEPHENSON MD 477.0 ALLERGIC RHINITIS DUE TO POLLEN 03/24/2014 DAVEY STEPHENSON MD 626.7 POSTCOITAL BLEEDING 03/24/2014 MARIALUISA DPM, ORLY 477.0 ALLERGIC RHINITIS DUE TO POLLEN 03/24/2014 MARIALUISA DPM, ORLY 626.7 POSTCOITAL BLEEDING 03/24/2014 KARISSA [employer] BPM ARCHITECT, NAHOMY S 477.0 ALLERGIC RHINITIS DUE TO POLLEN 03/24/2014 KARISSA [employer] BPM ARCHITECT, NAHOMY S 626.7 POSTCOITAL BLEEDING 03/24/2014 MARIALUISA DPM, ORLY 477.0 ALLERGIC RHINITIS DUE TO POLLEN 03/24/2014 MARIALUISA DPM, ORLY 626.7 POSTCOITAL BLEEDING 03/24/2014 KARISSA [employer] BPM ARCHITECT, NAHOMY S 477.0 ALLERGIC RHINITIS DUE TO POLLEN 03/24/2014 KARISSA IBM BPM ARCHITECT, NAHOMY S 626.7 POSTCOITAL BLEEDING 03/24/2014 KARISSA [employer] BPM ARCHITECT, NAHOMY S 477.0 ALLERGIC RHINITIS DUE TO POLLEN 03/24/2014 KARISSA [employer] BPM ARCHITECT, NAHOMY S 626.7 POSTCOITAL BLEEDING 03/24/2014 KARISSA [employer] BPM ARCHITECT, NAHOMY S 477.0 ALLERGIC RHINITIS DUE TO POLLEN 03/24/2014 KARISSA [employer] BPM ARCHITECT, NAHOMY S 626.7 POSTCOITAL BLEEDING 04/15/2014 FLORENCE VALLE, KATELYN T 11 0.1 ONYCHOMYCOSIS 04/15/2014 DAVEY STEPHENSON MD 110.1 ONYCHOMYCOSIS 04/15/2014 MARIALUISA DPM, ORLY 110.1 ONYCHOMYCOSIS 04/15/2014 K[employer] ARCHITECT, NAHOMY S 110.1 ONYCHOMYCOSIS 04/15/2014 MARIALUISA DPM, ORLY 110.1 ONYCHOMYCOSIS 04/15/2014 K[employer] ARCHITECT, NAHOMY S 110.1 ONYCHOMYCOSIS 04/15/2014 KARIS[employer] ARCHITECT, NAHOMY S 110.1 ONYCHOMYCOSIS 04/15/2014 [employer] ARCHITECT, NAHOMY S 110.1 ONYCHOMYCOSIS 05/08/2014 DAVEY STEPHENSON MD 465.9 ACUTE UPPER RESPIRATORY INFECTIONS OF UNSPECIFIED SITE 05/08/2014 MARIALUISA DPM, ORLY 465.9 ACUTE UPPER RESPIRATORY INFECTIONS OF UNSPECIFIED SITE 05/08/2014 K[employer] ARCHITECT, NAHOMY S 465.9 ACUTE UPPER RESPIRATORY INFECTIONS OF UNSPECIFIED SITE 05/08/2014 MARIALUISA DPM, ORLY 465.9 ACUTE UPPER RESPIRATORY INFECTIONS OF UNSPECIFIED SITE 05/08/2014 K[employer] ARCHITECT, NAHOMY S 465.9 ACUTE UPPER RESPIRATORY INFECTIONS OF UNSPECIFIED SITE 05/08/2014 K[employer] ARCHITECT, NAHOMY S 465.9 ACUTE UPPER RESPIRATORY INFECTIONS OF UNSPECIFIED SITE 05/08/2014 K[employer] ARCHITECT, NAHOMY S 465.9 ACUTE UPPER RESPIRATORY INFECTIONS OF UNSPECIFIED SITE 06/05/2014 MARIALUISA DPM, ORLY 703.8 ONYCHOCRYPTOSIS 06/05/2014 [employer] ARCHITECT, NAHOMY S 703.8 ONYCHOCRYPTOSIS 06/05/2014 MARIALUISA DPM, ORLY 703.8 ONYCHOCRYPTOSIS 06/05/2014 K[employer] ARCHITECT, NAHOMY S 703.8 ONYCHOCRYPTOSIS 06/05/2014 K[employer] ARCHITECT, NAHOMY S 703.8 ONYCHOCRYPTOSIS 06/05/2014 [employer] ARCHITECT, NAHOMY S 703.8 ONYCHOCRYPTOSIS 07/24/2014 K[employer] ARCHITECT, NAHOMY S 734 FLAT FOOT 07/24/2014 [employer] ARCHITECT, NAHOMY S 734 FLAT FOOT 07/24/2014 [employer] ARCHITECT, NAHOMY S 734 FLAT FOOT 08/05/2014 [employer] ARCHITECT, NAHOMY S 461.9 SINUSITIS ACUTE 08/05/2014 [employer] ARCHITECT, NAHOMY S 784.0 HEADACHE 08/05/2014 [employer] ARCHITECT, NAHOMY S 461.9 SINUSITIS ACUTE 08/05/2014 [employer] ARCHITECT, NAHOMY S 784.0 HEADACHE 08/05/2014 K[employer] ARCHITECT, NAHOMY S 461.9 SINUSITIS ACUTE 08/05/2014 K[employer] ARCHITECT, NAHOMY S 784.0 HEADACHE 08/10/2014 Ot 793.81 08/10/2014 Ot V76.12 08/10/2014 Ot 793.81 08/10/2014 Ot 793.80 08/10/2014 Ot 616.2 08/10/2014 Ot V72.84 08/10/2014 Ot 733.90 08/10/2014 JOSIAS GUERREROP Ot 793.80 08/10/2014 JOSIAS GUERREROP Ot V76.12 08/10/2014 JOSIAS GUERREROP Ot 793.80 08/10/2014 JOSIAS GUERREROP Ot 793.80 08/10/2014 JOSIAS GUERREROP Ot V67.9 08/10/2014 Ot 461.9 ACUT E SINUSITIS NOS 08/10/2014 Ot 780.4 DIZZ INESS AND GIDDINESS 08/10/2014 Ot 787.01 SHEFALI SEA WITH VOMITING 08/10/2014 Ot 793.81 08/10/2014 Ot V76.12 08/10/2014 Ot 793.81 08/10/2014 Ot 793.80 08/10/2014 Ot 616.2 08/10/2014 Ot V72.84 08/10/2014 Ot 733.90 08/10/2014 JOSIAS GUERREROP Ot 793.80 08/10/2014 JOSIAS GUERREROP Ot V76.12 08/10/2014 JOSIAS GUERREROP Ot 793.80 08/10/2014 JOSIAS GUERREROP Ot 793.80 08/10/2014 JOSIAS GUERREROP Ot V67.9 08/11/2014 NAHOMY HANOCCK APRN S 386.10 VERTIGO, PERIPHERAL UNSPECIFIED 08/11/2014 NAHOMY HANCOCK APRN S 386.10 VERTIGO, PERIPHERAL UNSPECIFIED 08/11/2014 NAHOMY HANCOCK APRN S 386.10 VERTIGO, PERIPHERAL UNSPECIFIED 08/11/2014 Ot 386.30 LAB YRINTHITIS NOS 08/11/2014 Ot 780.4 DIZZ INESS AND GIDDINESS 08/12/2014 Ot 300.00 ANX IETY STATE NOS 08/12/2014 Ot 461.9 ACUT E SINUSITIS NOS 08/12/2014 Ot 599.0 URIN TRACT INFECTION NOS 08/12/2014 Ot 787.02 SHEFALI SEA ALONE 08/17/2014 Ot 288.60 PAULA KOCYTOSIS, UNSPECIFIED 08/17/2014 Ot 300.00 ANX IETY STATE NOS 08/17/2014 Ot 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 08/17/2014 Ot 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 08/17/2014 Ot 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 08/17/2014 Ot 729.1 MYAL JESSICA AND MYOSITIS NOS 08/17/2014 Ot 781.3 LACK OF COORDINATION 08/17/2014 Ot 787.01 SHEFALI SEA WITH VOMITING 08/18/2014 [employer] ARCHITECT NAHOMY S 203.00 MULTIPLE MYELOMA WITHOUT MENTION OF HAVING ACHIEVED RE MISSION 08/18/2014 [employer] ARCHITECT, NAHOMY S 203.00 MULTIPLE MYELOMA WITHOUT MENTION OF HAVING ACHIEVED RE MISSION 08/18/2014 [employer] ARCHITECT, NAHOMY S 203.00 MULTIPLE MYELOMA WITHOUT MENTION OF HAVING ACHIEVED RE MISSION 08/18/2014 PROSPER BUTLER DO Ot 780.4 DIZZINESS AND GIDDINESS 08/18/2014 PROSPER BUTLER DO Ot 784.0 HEADACHE 08/18/2014 PROSPER BUTLER DO Ot V15.81 HX OF PAST NONCOMPLIANCE 08/25/2014 Ot 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 08/25/2014 Ot 723.1 CERV ICALGIA 08/25/2014 Ot 780.4 DIZZ INESS AND GIDDINESS 08/25/2014 Ot V58.65 LEFTY G- TERM(CURRENT)USE OF STEROIDS 08/25/2014 Ot V58.69 OTH MED,LT,CURRENT USE 09/02/2014 KRISTYN HANCOCK APRNNDA S 723.0 SPINAL STENOSIS IN CERVICAL REGION 09/02/2014 KRISTYN HANCOCK APRNNDA S 729.2 NEURALGIA NEURITIS AND RADICULITIS UNSPECIFIED 09/02/2014 [employer] ARCHITECT, NAHOMY S 723.0 SPINAL STENOSIS IN CERVICAL REGION 09/02/2014 KARISSA VALLE NAHOMY S 729.2 NEURALGIA NEURITIS AND RADICULITIS UNSPECIFIED 09/02/2014 [employer] ARCHITECT NAHOMY S 723.0 SPINAL STENOSIS IN CERVICAL REGION 09/02/2014 KRISTYN HANCOCK APRNNDA S 729.2 NEURALGIA NEURITIS AND RADICULITIS UNSPECIFIED 09/07/2014 SUE GARCIA Nataliya Ot 203.00 10/12/2014 NAHOMY HANCOCK APRN S 724.09 SPINAL STENOSIS OF OTHER REGION 10/16/2014 Ot 793.81 10/16/2014 Ot V76.12 10/16/2014 Ot 793.81 10/16/2014 Ot 793.80 10/16/2014 Ot 616.2 10/16/2014 Ot V72.84 10/16/2014 Ot 733.90 10/16/2014 JOSIAS GUERRERO [employer] Ot 793.80 10/16/2014 JOSIAS GUERREROP Ot V76.12 [...] 793.80 10/16/2014 JOSIAS GUERREROP Ot V67.9 10/16/2014 JOSEJOSE ELIASSUSANNAH An Ot 203.00 10/16/2014 Ot 793.81 10/16/2014 Ot [...] Ot 203.00 10/17/2014 BENITO KLEIN MD Ot 784. 0 HEADACHE 10/17/2014 BENITO KLEIN MD Ot V58. 65 LONG-TERM(CURRENT)USE OF STEROIDS 10/17/2014 BENITO KLEIN MD Ot V58. 69 [facility] 10/17/2014 Ot 793.81 10/17/2014 Ot V76.12 10/17/2014 Ot 793.81 10/17/2014 Ot 793.80 10/17/2014 Ot 616.2 10/17/2014 Ot V72.84 10/17/2014 Ot 733.90 10/17/2014 JOSIAS GUERREROP Ot 793.80 10/17/2014 JOSIAS GUERREROP Ot V76.12 10/17/2014 JOSIAS GUERREROP Ot 793.80 10/17/2014 JOSIAS GUERREROP Ot 793.80 10/17/2014 JOSIAS GUERREROP Ot V67.9 10/17/2014 SUE GARCIA Ot 203.00 10/19/2014 Ot 793.81 10/19/2014 Ot V76.12 10/19/2014 Ot 793.81 10/19/2014 Ot 793.80 10/19/2014 Ot 616.2 10/19/2014 Ot V72.84 10/19/2014 Ot 733.90 10/19/2014 JOSIAS GUERREROP Ot 793.80 10/19/2014 JOSIAS GUERRERO [employer] Ot V76.12 10/19/2014 JOSIAS GUERRERO [employer] Ot 793.80 10/19/2014 JOSIAS GUERREROP Ot 793.80 10/19/2014 JOSIAS GUERREROP Ot V67.9 10/19/2014 SUE GARCIA Ot 203.00 10/19/2014 SUE GARCIA Ot 203.00 10/20/2014 Ot 793.81 10/20/2014 Ot V76.12 10/20/2014 Ot 793.81 10/20/2014 Ot 793.80 10/20/2014 Ot 616.2 10/20/2014 Ot V72.84 10/20/2014 Ot 733.90 10/20/2014 JOSIAS GUERREROP Ot 793.80 10/20/2014 JOSIAS GUERREROP Ot V76.12 10/20/2014 JOSIAS GUERREROP Ot 793.80 10/20/2014 JOSIAS GUERREROP Ot 793.80 10/20/2014 JOSIAS GUERREROP Ot V67.9 10/20/2014 SUE GARCIA Ot 203.00 10/20/2014 PROSPER BUTLER DO Ot 307.81 TENSION HEADACHE 10/20/2014 PROSPER BUTLER DO Ot 338.29 OTHER CHRONIC PAIN 10/20/2014 PROSPER BUTLER DO Ot 599.0 URIN TRACT INFECTION NOS 10/20/2014 PROSPER BUTLER DO Ot 780.4 DIZZINESS AND GIDDINESS 10/20/2014 PROSPER BUTLER DO Ot 787.02 NAUSEA ALONE 10/26/2014 SUE GARCIA Ot 203.00 11/17/2014 SUE GARCIA Ot 203.00 MULTIPLE MYELOMA, W/O MENTION OF HAVING 12/31/2014 Ot 793.81 12/31/2014 Ot V76.12 12/31/2014 Ot 793.81 12/31/2014 Ot 793.80 12/31/2014 Ot 616.2 12/31/2014 Ot V72.84 12/31/2014 Ot 733.90 12/31/2014 JOSIAS GUERRERO [employer] Ot 793.80 12/31/2014 JOSIAS GUERRERO [employer] Ot V76.12 12/31/2014 JOSIAS GUERRERO [employer] Ot 793.80 12/31/2014 JOSIAS GUERRERO [employer] Ot 793.80 12/31/2014 JOSIAS [employer] Ot V67.9 12/31/2014 SHAHID HOLLIDAY, MUSEYVONNE Ot 203. 00 01/13/2015 KYLE CHAVEZ DO Ot V76.1 2 01/22/2015 GELTEE QUINN DO Ot 305.1 TOBACCO USE DISORDER 01/22/2015 GELLENDER DOTEE Ot 308.1 STRESS REACTION, FUGUE 01/22/2015 GELLENDER DO, TEE Gilbert Ot 401.9 HYPERTENSION NOS 01/22/2015 GELLENDER DOTEE Ot 729.1 MYALGIA AND MYOSITIS NOS 01/22/2015 GELLENDER DOTEE Ot 799.3 DEBILITY NOS 01/22/2015 GELLENDER DOTEE Ot V58.78 AFTERCARE POST SURGERY MUSCULOSKELETAL S 01/22/2015 GELPATRICKDER DOTEE Ot 305.1 01/22/2015 GELLENDER DOTEE Ot 308.1 01/22/2015 GELLENDER DOTEE Ot 401.9 01/22/2015 GELLENDER DOTEE Ot 729.1 01/22/2015 GELLENDER DOTEE Ot 799.3 01/22/2015 GELLENDER TEE AGUILA Ot V58.78 03/02/2015 MORRO HOLLIDAY, ANDREY Oconnor [...] HOLLIDAY, ANDREY Oconnor Ot M54.2 CERVICALGIA 05/18/2015 CHAVEZ DO KYLE C Ot N81.8 9 05/18/2015 CHAVEZ DO KYLE C Ot Z01.8 12 05/18/2015 CHAVEZ DO KYLE C Ot Z11.2 05/20/2015 CHAVEZ DO KYLE C Ot D62 ACUTE POSTHEMORRHAGIC ANEMIA 05/20/2015 CHAVEZ DO KYLE C Ot N39.3 STRESS INCONTINENCE (FEMALE) (MALE) 05/20/2015 KATHY AGUILA KYLE C Ot N81.1 1 CYSTOCELE, MIDLINE 05/20/2015 KATHY AGUILA KYLE C Ot N81.6 RECTOCELE 05/20/2015 CHAVEZ DO KYLE C Ot N81.8 9 OTHER FEMALE GENITAL PROLAPSE 05/20/2015 KATHY AGUILA KYLE C Ot N99.8 20 POSTPROC HEMOR/HEMTOM OF A SYS ORG FO 05/20/2015 KATHY AGUILA KYLE C Ot T83.721A EXPOSURE OF IMPLNT VAG PRSTHT MTRL INTO 05/23/2015 QI MACHUCA Ot F17.210 NICOTINE DEPENDENCE, CIGARETTES, UNCOMPL 05/23/2015 QI MACHUCA Ot N39.0 URINARY TRACT INFECTION, SITE NOT SPECIF 05/23/2015 QI MACHUCA Ot R33.9 RETENTION OF URINE, UNSPECIFIED 05/23/2015 QI MACHUCA Ot Z98.89 OTHER SPECIFIED POSTPROCEDURAL STATES 07/08/2015 Ot F17.210 NI COTINE DEPENDENCE, CIGARETTES, UNCOMPL 07/08/2015 Ot S05.02XA I [place] CONJUNCTIVA AND CORNEAL ABRASION W/O 07/08/2015 Ot W18.00XA S TRIKING AGAINST UNSP OBJECT W SUBSEQUEN 07/08/[address] IN UNSP NON-INSTITUT (PRIVATE 07/08/2015 Ot Y99.8 OTHE R EXTERNAL CAUSE STATUS 07/08/[address] FOR IMMUNIZATION 07/28/2015 SHAHID HOLLIDAY, YULIANA Ot 203. 00 08/09/2015 SHAHID HOLLIDAY, YULIANA Ot 203. 00 08/27/2015 SHAHID HOLLIDAY, YULIANA Ot D47. 2 08/27/2015 SHAHID HOLLIDAY, YULIANA Ot F17.210 08/27/2015 SHAHID HOLLIDAY, YULIANA Ot F32. 9 08/27/2015 SHAHID HOLLIDAY, YULIANA Ot F41. 9 08/27/2015 SHAHID HOLLIDAY, YULIANA Ot M79. 7 08/27/2015 SHAHID HOLLIDAY, YULIANA Ot Z79.899 11/04/2015 SHAHID HOLLIDAY, YULIANA Ot D47. 2 MONOCLONAL GAMMOPATHY 11/04/2015 SHAHID HOLLIDAY, YULIANA Ot F17.210 NICOTINE DEPENDENCE, CIGARETTES, UNCOMPL 11/04/2015 SHAHID HOLLIDAY, YULIANA Ot F32. 9 MAJOR DEPRESSIVE DISORDER, SINGLE EPISOD 11/04/2015 SHAHID HOLLIDAY, YULIANA Ot F41. 9 ANXIETY DISORDER, UNSPECIFIED 11/04/2015 SHAHID HOLLIDAY, YULIANA Ot M79. 7 FIBROMYALGIA 11/04/2015 SHAHID HOLLIDAY, YULIANA Ot Z79.899 OTHER SATURATOR TENDER (CURRENT) DRUG THERAPY 11/10/2015 SHAHID HOLLIDAY, YULIANA Ot D47. 2 MONOCLONAL GAMMOPATHY 11/10/2015 SHAHID HOLLIDAY, YULIANA Ot F17.210 NICOTINE DEPENDENCE, CIGARETTES, UNCOMPL 11/10/2015 SHAHID HOLLIDAY, YULIANA Ot F32. 9 MAJOR DEPRESSIVE DISORDER, SINGLE EPISOD 11/10/2015 SHAHID HOLLIDAY, YULIANA Ot F41. 9 ANXIETY DISORDER, UNSPECIFIED 11/10/2015 SHAHID HOLLIDAY, YULIANA Ot M79. 7 FIBROMYALGIA 11/10/2015 YULIANA KEY MD Ot Z79.899 OTHER SATURATOR TENDER (CURRENT) DRUG THERAPY 01/20/2016 Ot 793.81 MATEO MOGRAPHIC MICROCLACIFICATION 01/20/2016 Ot V76.12 OTH SCREEN MAMMO- MALIGN NEOPLASM OF JOHN 01/20/2016 Ot 793.81 MATEO MOGRAPHIC MICROCLACIFICATION 01/20/2016 Ot 793.80 UNS PEC ABNORMAL MAMMOGRAM 01/20/2016 Ot 616.2 COY HOL[place]'S GLAND CYST 01/20/2016 Ot V72.84 EXA M PRE- OPERATIVE NOS 01/20/2016 Ot 733.90 BON E CARTILAGE DIS NOS 01/20/2016 JOSIAS GUERRERO [employer] Ot 793.80 UNSPEC ABNORMAL MAMMOGRAM 01/20/2016 JOSIAS GUERRERO [employer] Ot V76.12 OTH SCREEN MAMMO-MALIGN NEOPLASM OF JOHN 01/20/2016 JOSIAS GUERRERO [employer] Ot 793.80 UNSPEC ABNORMAL MAMMOGRAM 01/20/2016 JOSIAS GUERRERO [employer] Ot 793.80 UNSPEC ABNORMAL MAMMOGRAM 01/20/2016 JOSIAS GUERRERO [employer] Ot V67.9 FOLLOW-UP EXAM NOS 01/20/2016 KYLE CHAVEZ DO Ot V76.1 2 OTH SCREEN MAMMO-MALIGN NEOPLASM OF JOHN 01/20/2016 KYLE CHAVEZ DO Ot N81.8 9 OTHER FEMALE GENITAL PROLAPSE 01/20/2016 KYLE CHAVEZ DO Ot Z01.8 12 ENCOUNTER FOR PREPROCEDURAL LABORATORY E 01/20/2016 KYLE CHAVEZ DO Ot Z11.2 ENCOUNTER FOR SCREENING FOR OTHER BACTER 01/20/2016 YULIANA KEY MD Ot D47. 2 MONOCLONAL GAMMOPATHY 01/20/2016 YULIANA KEY MD Ot F17.210 NICOTINE DEPENDENCE, CIGARETTES, UNCOMPL 01/20/2016 YULIANA KEY MD Ot F32. 9 MAJOR DEPRESSIVE DISORDER, SINGLE EPISOD 01/20/2016 YULIANA KEY MD Ot F41. 9 ANXIETY DISORDER, UNSPECIFIED 01/20/2016 YULIANA KEY MD Ot M79. 7 FIBROMYALGIA 01/20/2016 YULIANA KEY MD Ot Z79.899 OTHER FDC (CURRENT) DRUG THERAPY 01/21/2016 KYLE CHAVEZ DO Ot Z12.3 1 ENCNTR SCREEN MAMMOGRAM FOR MALIGNANT NE 01/24/2016 KYLE CHAVEZ DO Ot Z12.3 1 ENCNTR SCREEN MAMMOGRAM FOR MALIGNANT NE 02/07/2016 Ot 793.81 MATEO MOGRAPHIC MICROCLACIFICATION 02/07/2016 Ot V76.12 OTH SCREEN MAMMO- MALIGN NEOPLASM OF JOHN 02/07/2016 Ot 793.81 MATEO MOGRAPHIC MICROCLACIFICATION 02/07/2016 Ot 793.80 UNS PEC ABNORMAL MAMMOGRAM 02/07/2016 Ot 616.2 COY HOL[place] CYST 02/07/2016 Ot V72.84 EXA M PRE- OPERATIVE NOS 02/07/2016 Ot 733.90 BON E CARTILAGE DIS NOS 02/07/2016 JOSIAS GUERRERO [employer] Ot 793.80 UNSPEC ABNORMAL MAMMOGRAM 02/07/2016 JOSIAS GUERRERO [employer] Ot V76.12 OTH SCREEN MAMMO-MALIGN NEOPLASM OF JOHN 02/07/2016 JOSIAS GUERRERO [employer] Ot 793.80 UNSPEC ABNORMAL MAMMOGRAM 02/07/2016 JOSIAS GUERRERO [employer] Ot 793.80 UNSPEC ABNORMAL MAMMOGRAM 02/07/2016 JOSIAS GUERREROP Ot V67.9 FOLLOW-UP EXAM NOS 02/07/2016 KYLE CHAVEZ DO Ot V76.1 2 OTH SCREEN MAMMO-MALIGN NEOPLASM OF JOHN 02/07/2016 KYLE CHAVEZ DO Ot N81.8 9 OTHER FEMALE GENITAL PROLAPSE 02/07/2016 KYLE CHAVEZ DO Ot Z01.8 12 ENCOUNTER FOR PREPROCEDURAL LABORATORY E 02/07/2016 KYLE CHAVEZ DO Ot Z11.2 ENCOUNTER FOR SCREENING FOR OTHER BACTER 02/07/2016 YULIANA KEY MD Ot D47. 2 MONOCLONAL GAMMOPATHY 02/07/2016 YULIANA KEY MD Ot F17.210 NICOTINE DEPENDENCE, CIGARETTES, UNCOMPL 02/07/2016 YULIANA KEY MD Ot F32. 9 MAJOR DEPRESSIVE DISORDER, SINGLE EPISOD 02/07/2016 YULIANA KEY MD Ot F41. 9 ANXIETY DISORDER, UNSPECIFIED 02/07/2016 YULIANA KEY MD Ot M79. 7 FIBROMYALGIA 02/07/2016 YULIANA KEY MD Ot Z79.899 OTHER SATURATOR TENDER (CURRENT) DRUG THERAPY 02/07/2016 KYLE CHAVEZ DO Ot Z12.3 1 ENCNTR SCREEN MAMMOGRAM FOR MALIGNANT NE 02/29/2016 KYLE CHAVEZ DO, Ot Z12.3 1 ENCNTR SCREEN MAMMOGRAM FOR MALIGNANT NE 04/24/2016 DEMETRIUS RUBIO APRN Ot I10 ESSENTIAL (PRIMARY) HYPERTENSION 04/24/2016 DEMETRIUS RUBIO APRN Ot N12 TUBULO-INTERSTITIAL NEPHRITIS, NOT SPCF 04/24/2016 DEMETRIUS RUBIO APRN Ot R31 .9 HEMATURIA, UNSPECIFIED 04/24/2016 DEMETRIUS RUBIO APRN Ot Z79.899 OTHER SATURATOR TENDER (CURRENT) DRUG THERAPY 04/25/2016 ANDREW HOLLIDAY, THO T Ot F17.210 NICOTINE DEPENDENCE, CIGARETTES, UNCOMPL 04/25/2016 ANDREW HOLLIDAY, THO T Ot N39.0 URINARY TRACT INFECTION, SITE NOT SPECIF 04/25/2016 THO MORALES MD T Ot Z79.899 OTHER SATURATOR TENDER (CURRENT) DRUG THERAPY 04/25/2016 DEMETRIUS RUBIO APRN Ot I10 ESSENTIAL (PRIMARY) HYPERTENSION 04/25/2016 DEMETRIUS RUBIO APRN Ot N12 TUBULO-INTERSTITIAL NEPHRITIS, NOT SPCF 04/25/2016 DEMETRIUS RUBIO APRN Ot R31 .9 HEMATURIA, UNSPECIFIED 04/25/2016 DEMETRIUS RUBIO [employer] ARCHITECT Ot Z79.899 OTHER SATURATOR TENDER (CURRENT) DRUG THERAPY 04/26/2016 ANDREW HOLLIDAY, THO T Ot F17.210 NICOTINE DEPENDENCE, CIGARETTES, UNCOMPL 04/26/2016 ANDREW HOLLIDAY, THO T Ot N39.0 URINARY TRACT INFECTION, SITE NOT SPECIF 04/26/2016 THO MORALES MD T Ot Z79.899 OTHER SATURATOR TENDER (CURRENT) DRUG THERAPY 04/27/2016 DEMETRIUS RUBIO [employer] ARCHITECT Ot I10 ESSENTIAL (PRIMARY) HYPERTENSION 04/27/2016 DEMETRIUS RUBIO [employer] ARCHITECT Ot N12 TUBULO-INTERSTITIAL NEPHRITIS, NOT SPCF 04/27/2016 DEMETRIUS RUBIO [employer] ARCHITECT Ot R31 .9 HEMATURIA, UNSPECIFIED 04/27/2016 DEMETRIUS RUBIO [employer] B[employer] ARCHITECT Ot Z79.899 OTHER FDC (CURRENT) DRUG THERAPY 04/27/2016 THO MORALES MD T Ot F17.210 NICOTINE DEPENDENCE, CIGARETTES, UNCOMPL 04/27/2016 BRUEGGEMANN MD, THO T Ot N39.0 URINARY TRACT INFECTION, SITE NOT SPECIF 04/27/2016 THO MORALES MD Ot Z79.899 OTHER SATURATOR TENDER (CURRENT) DRUG THERAPY 05/03/2016 THO MORALES MD Ot F17.210 NICOTINE DEPENDENCE, CIGARETTES, UNCOMPL 05/03/2016 THO MORALES MD Ot N39.0 URINARY TRACT INFECTION, SITE NOT SPECIF 05/03/2016 THO MORALES MD Ot Z79.899 OTHER SATURATOR TENDER (CURRENT) DRUG THERAPY 05/04/2016 DEMETRIUS RUBIO [employer] ARCHITECT Ot I10 ESSENTIAL (PRIMARY) HYPERTENSION 05/04/2016 DEMETRIUS RUBIO [employer] ARCHITECT Ot N12 TUBULO-INTERSTITIAL NEPHRITIS, NOT SPCF 05/04/2016 DEMETRIUS RUBIO [employer] ARCHITECT Ot R31 .9 HEMATURIA, UNSPECIFIED 05/04/2016 DEMETRIUS RUBIO [employer] B[employer] ARCHITECT Ot Z79.899 OTHER FDC (CURRENT) DRUG THERAPY 05/19/2016 NAHOMY HANCOCK [employer] Ot R10.11 RIGHT UPPER QUADRANT PAIN 05/19/2016 LIDA HANCOCKA [employer] Ot R10.11 RIGHT UPPER QUADRANT PAIN 05/23/2016 NAHOMY HANCOCK [employer] Ot R10.11 RIGHT UPPER QUADRANT PAIN 05/24/2016 NAHOMY HANCOCK [employer] Ot R10.11 RIGHT UPPER QUADRANT PAIN 05/30/2016 NAHOMY HANCOCK [employer] Ot R10.11 RIGHT UPPER QUADRANT PAIN 08/08/2016 BERENICE HOLLIDAY, SARAH Masterson Ot M48.02 SPINAL STENOSIS, CERVICAL REGION 08/08/2016 SARAH NG MD R Ot M79 .1 MYALGIA 08/08/2016 SARAH NG MD Ot Z98 .1 ARTHRODESIS STATUS 08/08/2016 SARAH NG MD Ot M48.02 SPINAL STENOSIS, CERVICAL REGION 08/08/2016 SARAH NG MD Ot M79 .1 MYALGIA 08/08/2016 SARAH NG MD R Ot Z98 .1 ARTHRODESIS STATUS 09/05/2016 SARAH NG MD Ot M48.02 SPINAL STENOSIS, CERVICAL REGION 09/05/2016 SARAH NG MD Ot M79 .1 MYALGIA 09/05/2016 BERENICE HOLLIDAY MCCASEY R Ot Z98 .1 ARTHRODESIS STATUS 09/07/2016 SARAH NG MD R Ot M48.02 SPINAL STENOSIS, CERVICAL REGION 09/07/2016 BERENICE HOLLIDAY MCCASEKarla R Ot M79 .1 MYALGIA 09/07/2016 ANA NG MDASEKarla R Ot Z98 .1 ARTHRODESIS STATUS 09/11/2016 ANA NG MDASEKarla R Ot M48.02 SPINAL STENOSIS, CERVICAL REGION 09/11/2016 SARAH NG MD R Ot M79 .1 MYALGIA 09/11/2016 SARAH NG MD R Ot Z98 .1 ARTHRODESIS STATUS 09/20/2016 SARAH NG MD R Ot M48.02 SPINAL STENOSIS, CERVICAL REGION 09/20/2016 SARAH NG MD R Ot M79 .1 MYALGIA 09/20/2016 SARAH NG MD R Ot Z98 .1 ARTHRODESIS STATUS 09/21/2016 JONH HOLLIDAY, MIGUEL K Ot M47.12 OTHER SPONDYLOSIS WITH MYELOPATHY, CERVI 09/21/2016 JONH HOLLIDAY, MIGUEL K Ot R27 .0 ATAXIA, UNSPECIFIED 09/21/2016 JONH HOLLIDAY, MIGUEL K Ot M47.12 OTHER SPONDYLOSIS WITH MYELOPATHY, CERVI 09/21/2016 JONH HOLLIDAY, MIGUEL K Ot R27 .0 ATAXIA, UNSPECIFIED 09/21/2016 JONH HOLLIDAY, MIGUEL K Ot M47.12 OTHER SPONDYLOSIS WITH MYELOPATHY, CERVI 09/21/2016 JONH HOLLIDAY MIGUEL K Ot R27 .0 ATAXIA, UNSPECIFIED 09/29/2016 JONH HOLLIDAY, MIGUEL K Ot M47.12 OTHER SPONDYLOSIS WITH MYELOPATHY, CERVI 09/29/2016 JONH HOLLIDAY MIGUEL K Ot R27 .0 ATAXIA, UNSPECIFIED 09/29/2016 BERENICE HOLLIDAY MCCASEKarla R Ot M48.02 SPINAL STENOSIS, CERVICAL REGION 09/29/2016 ANA NG MDASEKarla R Ot M79 .1 MYALGIA 09/29/2016 ANA NG MDASEKarla R Ot Z98 .1 ARTHRODESIS STATUS 10/06/2016 SARAH NG MD R Ot M48.02 SPINAL STENOSIS, CERVICAL REGION 10/06/2016 SARAH NG MD R Ot M79 .1 MYALGIA 10/06/2016 SARAH NG MD R Ot Z98 .1 ARTHRODESIS STATUS 10/06/2016 JONH HOLLIDAY, MIGUEL K Ot M47.12 OTHER SPONDYLOSIS WITH MYELOPATHY, CERVI 10/06/2016 MIGUEL BORJA MD K Ot R27 .0 ATAXIA, UNSPECIFIED 10/09/2016 SARAH NG MD R Ot M48.02 SPINAL STENOSIS, CERVICAL REGION 10/09/2016 SARAH NG MD R Ot M79 .1 MYALGIA 10/09/2016 SARAH NG MD R Ot Z98 .1 ARTHRODESIS STATUS 10/13/2016 MIGUEL BORJA MD K Ot M47.12 OTHER SPONDYLOSIS WITH MYELOPATHY, CERVI 10/13/2016 MIGUEL BORJA MD K Ot R27 .0 ATAXIA, UNSPECIFIED 10/23/2016 KATELYN SHIRLEY DO Ot F17.210 NICOTINE DEPENDENCE, CIGARETTES, UNCOMPL 10/23/2016 KATELYN SHIRLEY DO Ot I1 0 ESSENTIAL (PRIMARY) HYPERTENSION 10/23/2016 KATELYN SHIRLEY DO Ot M48.02 SPINAL STENOSIS, CERVICAL REGION 10/23/2016 KATELYN SHIRLEY DO Ot M54.12 RADICULOPATHY, CERVICAL REGION 10/23/2016 KATELYN SHIRLEY DO Ot M79.602 PAIN IN LEFT ARM 10/23/2016 KATELYN SHIRLEY DO Ot Z79.899 OTHER FDC (CURRENT) DRUG THERAPY 10/24/2016 SARAH NG MD Ot M48.02 SPINAL STENOSIS, CERVICAL REGION 10/24/2016 SARAH NG MD R Ot M79 .1 MYALGIA 10/24/2016 SARAH GN MD R Ot Z98 .1 ARTHRODESIS STATUS 10/25/2016 KATELYN SHIRLEY DO Ot F17.210 NICOTINE DEPENDENCE, CIGARETTES, UNCOMPL 10/25/2016 KATELYN SHIRLEY DO Ot I1 0 ESSENTIAL (PRIMARY) HYPERTENSION 10/25/2016 KATELYN SHIRLEY DO Ot M48.02 SPINAL STENOSIS, CERVICAL REGION 10/25/2016 KATELYN SHIRLEY DO Ot M54.12 RADICULOPATHY, CERVICAL REGION 10/25/2016 KATELYN SHIRLEY DO Ot M79.602 PAIN IN LEFT ARM 10/25/2016 KATELYN SHIRLEY DO Ot Z79.899 OTHER SATURATOR TENDER (CURRENT) DRUG THERAPY 10/25/2016 SARAH NG MD R Ot M48.02 SPINAL STENOSIS, CERVICAL REGION 10/25/2016 SARAH NG MD R Ot M79 .1 MYALGIA 10/25/2016 SARAH NG MD R Ot Z98 .1 ARTHRODESIS STATUS 10/26/2016 SARAH NG MD R Ot M48.02 SPINAL STENOSIS, CERVICAL REGION 10/26/2016 SARAH NG MD R Ot M79 .1 MYALGIA 10/26/2016 SARAH NG MD R Ot Z98 .1 ARTHRODESIS STATUS 10/27/2016 SARAH NG MD R Ot M48.02 SPINAL STENOSIS, CERVICAL REGION 10/27/2016 SARAH NG MD Ot M79 .1 MYALGIA 10/27/2016 SARAH NG MD Ot Z98 .1 ARTHRODESIS STATUS 11/03/2016 YULIANA KEY MD Ot D47. 2 MONOCLONAL GAMMOPATHY 11/03/2016 YULIANA KEY MD Ot F17.210 NICOTINE DEPENDENCE, CIGARETTES, UNCOMPL 11/03/2016 YULIANA KEY MD Ot F32. 9 MAJOR DEPRESSIVE DISORDER, SINGLE EPISOD 11/03/2016 YULIANA KEY MD, Ot F41. 9 ANXIETY DISORDER, UNSPECIFIED 11/03/2016 YULIANA KEY MD Ot M79. 7 FIBROMYALGIA 11/03/2016 YULIANA KEY MD Ot Z79.899 OTHER SATURATOR TENDER (CURRENT) DRUG THERAPY 11/20/2016 RAEANN THOMAS Ot N30.01 ACUTE CYSTITIS WITH HEMATURIA 11/20/2016 RAEANN THOMAS Ot N30.01 ACUTE CYSTITIS WITH HEMATURIA 11/21/2016 KATELYN SHIRLEY DO Ot F17.210 NICOTINE DEPENDENCE, CIGARETTES, UNCOMPL 11/21/2016 KATELYN SHIRLEY DO Ot I1 0 ESSENTIAL (PRIMARY) HYPERTENSION 11/21/2016 KATELYN SHIRLEY DO, Ot M48.02 SPINAL STENOSIS, CERVICAL REGION 11/21/2016 KATELYN SHIRLEY DO, Ot M54.12 RADICULOPATHY, CERVICAL REGION 11/21/2016 KATELYN SHIRLEY DO, Ot M79.602 PAIN IN LEFT ARM 11/21/2016 KATELYN SHIRLEY DO, Ot Z79.899 OTHER SATURATOR TENDER (CURRENT) DRUG THERAPY 11/25/2016 EDY, GREG [employer] Ot F17.210 NICOTINE DEPENDENCE, CIGARETTES, UNCOMPL 11/25/2016 EDY, GREG [employer] Ot K21.9 GASTRO-ESOPHAGEAL REFLUX DISEASE WITHOUT 11/25/2016 EDY, GREG [employer] Ot R33.9 RETENTION OF URINE, UNSPECIFIED 11/25/2016 EDY, GREG [employer] Ot Z98.890 OTHER SPECIFIED POSTPROCEDURAL STATES 11/27/2016 EDY, GREG [employer] Ot F17.210 NICOTINE DEPENDENCE, CIGARETTES, UNCOMPL 11/27/2016 EDY, GREG [employer] Ot K21.9 GASTRO-ESOPHAGEAL REFLUX DISEASE WITHOUT 11/27/2016 EDY, GREG [employer] Ot R33.9 RETENTION OF URINE, UNSPECIFIED 11/27/2016 EDY, GREG [employer] Ot Z98.890 OTHER SPECIFIED POSTPROCEDURAL STATES 11/30/2016 RAEANN THOMAS [employer] Ot N30.01 ACUTE CYSTITIS WITH HEMATURIA 12/01/2016 JOHNATHON HOLLIDAY, RANI Sena Ot F17.210 NICOTINE DEPENDENCE, CIGARETTES, UNCOMPL 12/01/2016 JOHNATHON HOLLIDAY, RANI Sena Ot I10 ESSENTIAL (PRIMARY) HYPERTENSION 12/01/2016 RANI DIEGO MD Ot N39. 0 URINARY TRACT INFECTION, SITE NOT SPECIF 12/01/2016 RANI DIEGO MD Ot R30. 0 DYSURIA 12/01/2016 JOHNATHON HOLLIDAY, RANI Sena Ot Z85. 43 PERSONAL HISTORY OF MALIGNANT NEOPLASM O 12/01/2016 RANI DIEGO MD Ot Z87. 19 PERSONAL HISTORY OF OTHER DISEASES OF TH 12/01/2016 RANI DIEGO MD Ot Z90. 49 ACQUIRED ABSENCE OF OTHER SPECIFIED PART 12/01/2016 RANI DIEGO MD Ot Z90.710 ACQUIRED ABSENCE OF BOTH CERVIX AND UTER 12/03/2016 EDY, GREG [employer] Ot F17.210 NICOTINE DEPENDENCE, CIGARETTES, UNCOMPL 12/03/2016 EDY, GREG [employer] Ot K21.9 GASTRO-ESOPHAGEAL REFLUX DISEASE WITHOUT 12/03/2016 EDY, GREG [employer] Ot R33.9 RETENTION OF URINE, UNSPECIFIED 12/03/2016 EDY, GREG [employer] Ot Z98.890 OTHER SPECIFIED POSTPROCEDURAL STATES 12/04/2016 JONH HOLLIDAY, MIGUEL Menendez Ot M47.12 OTHER SPONDYLOSIS WITH MYELOPATHY, CERVI 12/04/2016 JONH HOLLIDAY, MIGUEL Menendez Ot R27 .0 ATAXIA, UNSPECIFIED 02/20/2017 Ot 793.80 UNS PEC ABNORMAL MAMMOGRAM 02/20/2017 Ot 616.2 COY HOLIN'S [place] CYST 02/20/2017 Ot V72.84 EXA M PRE- OPERATIVE NOS 02/20/2017 Ot 733.90 BON E CARTILAGE DIS NOS 02/20/2017 JOSIAS GUERRERO [employer] Ot 793.80 UNSPEC ABNORMAL MAMMOGRAM 02/20/2017 JOSIAS GUERRERO [employer] Ot V76.12 OTH SCREEN MAMMO-MALIGN NEOPLASM OF JOHN 02/20/2017 JOSIAS GUERRERO [employer] Ot 793.80 UNSPEC ABNORMAL MAMMOGRAM 02/20/2017 JOSIAS GUERREROP Ot 793.80 UNSPEC ABNORMAL MAMMOGRAM 02/20/2017 JOSIAS GUERREROP Ot V67.9 FOLLOW-UP EXAM NOS 02/20/2017 KYLE CHAVEZ DO Ot V76.1 2 OTH SCREEN MAMMO-MALIGN NEOPLASM OF JOHN 02/20/2017 KYLE CHAVEZ DO Ot N81.8 9 OTHER FEMALE GENITAL PROLAPSE 02/20/2017 KYLE CHAVEZ DO Ot Z01.8 12 ENCOUNTER FOR PREPROCEDURAL LABORATORY E 02/20/2017 KYLE CHAVEZ DO Ot Z11.2 ENCOUNTER FOR SCREENING FOR OTHER BACTER 02/20/2017 YULIANA KEY MD Ot D47. 2 MONOCLONAL GAMMOPATHY 02/20/2017 YULIANA KEY MD Ot F17.210 NICOTINE DEPENDENCE, CIGARETTES, UNCOMPL 02/20/2017 YULIANA KEY MD Ot F32. 9 MAJOR DEPRESSIVE DISORDER, SINGLE EPISOD 02/20/2017 YULIANA KEY MD Ot F41. 9 ANXIETY DISORDER, UNSPECIFIED 02/20/2017 YULIANA KEY MD Ot M79. 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.899 OTHER SATURATOR TENDER (CURRENT) DRUG THERAPY 02/20/2017 KYLE CHAVEZ DO Ot Z12.3 1 ENCNTR SCREEN MAMMOGRAM FOR MALIGNANT NE 02/20/2017 NAHOMY HANCOCK Ot R10.11 RIGHT UPPER QUADRANT PAIN 02/20/2017 MIGUEL BORJA MD Ot M47.12 OTHER SPONDYLOSIS WITH MYELOPATHY, CERVI 02/20/2017 MIGUEL BORJA MD Ot R27 .0 ATAXIA, UNSPECIFIED 02/20/2017 MIGUEL BORJA MD Ot M47.12 OTHER SPONDYLOSIS WITH MYELOPATHY, CERVI 02/20/2017 MIGUEL BORJA MD Ot R27 .0 ATAXIA, UNSPECIFIED 02/20/2017 CAIT HOLLIDAY, ADRIAN Oconnor Ot Z01.818 ENCOUNTER FOR OTHER PREPROCEDURAL EXAMIN 02/20/2017 ADRIAN CHAVIRA MD Ot Z86.010 PERSONAL HISTORY OF COLONIC POLYPS 02/20/2017 RAEANN THOMAS [employer] Ot N30.01 ACUTE CYSTITIS WITH HEMATURIA 02/20/2017 NAHOMY HANCOCK [employer] Ot Z12.31 ENCNTR SCREEN MAMMOGRAM FOR MALIGNANT NE 02/22/2017 NAHOMY HANCOCKP Ot Z12.31 ENCNTR SCREEN MAMMOGRAM FOR MALIGNANT NE 03/14/2017 NAHOMY HANCOCKP Ot Z12.31 ENCNTR SCREEN MAMMOGRAM FOR MALIGNANT NE 08/26/2017 YOSI MG MD Ot F31 .9 BIPOLAR DISORDER, UNSPECIFIED 08/26/2017 YOSI MG MD Ot F41 .9 ANXIETY DISORDER, UNSPECIFIED 08/26/2017 YOSI MG MD Ot G43.909 MIGRAINE, UNSP, NOT INTRACTABLE, WITHOUT 08/26/2017 YOSI MG MD Ot I10 ESSENTIAL (PRIMARY) HYPERTENSION 08/26/2017 YOSI MG MD Ot K21 .9 GASTRO-ESOPHAGEAL REFLUX DISEASE WITHOUT 08/26/2017 YOSI MG MD Ot N39 .0 URINARY TRACT INFECTION, SITE NOT SPECIF 08/26/2017 YOSI MG MD Ot R31 .9 HEMATURIA, UNSPECIFIED 08/26/2017 YOSI MG MD Ot Z87.19 PERSONAL HISTORY OF OTHER DISEASES OF TH 08/26/2017 YOSI MG MD Ot Z87.42 PERSONAL HISTORY OF OTH DISEASES OF THE 08/26/2017 YOSI MG MD Ot Z87.891 PERSONAL HISTORY OF NICOTINE DEPENDENCE 08/26/2017 YOSI MG MD Ot Z88 .5 ALLERGY STATUS TO NARCOTIC AGENT STATUS 08/26/2017 YOSI MG MD, Ot Z90.49 ACQUIRED ABSENCE OF OTHER SPECIFIED PART 08/26/2017 YOSI MG MD Ot Z90.710 ACQUIRED ABSENCE OF BOTH CERVIX AND UTER 08/26/2017 YOSI MG MD Ot Z90.89 ACQUIRED ABSENCE OF OTHER ORGANS 08/26/2017 YOSI MG MD Ot Z91.041 RADIOGRAPHIC DYE ALLERGY STATUS 08/26/2017 YOSI MG MD Ot Z98.890 OTHER SPECIFIED POSTPROCEDURAL STATES 08/28/2017 YOSI MG MD Ot F31 .9 BIPOLAR DISORDER, UNSPECIFIED 08/28/2017 YOSI MG MD Ot F41 .9 ANXIETY DISORDER, UNSPECIFIED 08/28/2017 YOSI MG MD, Ot G43.909 MIGRAINE, UNSP, NOT INTRACTABLE, WITHOUT 08/28/2017 YOSI MG MD Ot I10 ESSENTIAL (PRIMARY) HYPERTENSION 08/28/2017 YOSI MG MD Ot K21 .9 GASTRO-ESOPHAGEAL REFLUX DISEASE WITHOUT 08/28/2017 YOSI MG MD Ot N39 .0 URINARY TRACT INFECTION, SITE NOT SPECIF 08/28/2017 YOSI MG MD Ot R31 .9 HEMATURIA, UNSPECIFIED 08/28/2017 YOSI MG MD Ot Z87.19 PERSONAL HISTORY OF OTHER DISEASES OF TH 08/28/2017 YOSI MG MD Ot Z87.42 PERSONAL HISTORY OF OTH DISEASES OF THE 08/28/2017 YOSI MG MD Ot Z87.891 PERSONAL HISTORY OF NICOTINE DEPENDENCE 08/28/2017 YOSI MG MD Ot Z88 .5 ALLERGY STATUS TO NARCOTIC AGENT STATUS 08/28/2017 YOSI MG MD Ot Z90.49 ACQUIRED ABSENCE OF OTHER SPECIFIED PART 08/28/2017 YOSI MG MD Ot Z90.710 ACQUIRED ABSENCE OF BOTH CERVIX AND UTER 08/28/2017 YOSI MG MD Ot Z90.89 ACQUIRED ABSENCE OF OTHER ORGANS 08/28/2017 YOSI MG MD Ot Z91.041 RADIOGRAPHIC DYE ALLERGY STATUS 08/28/2017 YOSI MG MD Ot Z98.890 OTHER SPECIFIED POSTPROCEDURAL STATES 09/07/2017 NAHOMY HANCOCK [employer] Ot M54.42 LUMBAGO WITH SCIATICA, LEFT SIDE 09/12/2017 NAHOMY HANCOCK [employer] Ot M54.42 LUMBAGO WITH SCIATICA, LEFT SIDE 09/12/2017 KARISSANAHOMY DAVALOS [employer] Ot M54.42 LUMBAGO WITH SCIATICA, LEFT SIDE 09/13/2017 KARISSA, NAHOMY [employer] Ot M54.42 LUMBAGO WITH SCIATICA, LEFT SIDE 10/12/2017 SARAH NG MD Ot M46.86 OTHER SPECIFIED INFLAMMATORY SPONDYLOPAT 10/12/2017 SARAH NG MD Ot M47.24 OTHER SPONDYLOSIS WITH RADICULOPATHY, 10/12/2017 SARAH NG MD Ot M47.26 OTHER SPONDYLOSIS WITH RADICULOPATHY, 10/12/2017 SARAH NG MD Ot M48.061 SPINAL STENOSIS, LUMBAR REGION WITHOUT N 10/12/2017 SARAH NG MD Ot M89.38 HYPERTROPHY OF BONE, OTHER SITE 10/31/2017 SARAH NG MD Ot M46.86 OTHER SPECIFIED INFLAMMATORY SPONDYLOPAT 10/31/2017 SARAH NG MD Ot M47.24 OTHER SPONDYLOSIS WITH RADICULOPATHY, 10/31/2017 SARAH NG MD Ot M47.26 OTHER SPONDYLOSIS WITH RADICULOPATHY, 10/31/2017 SARAH NG MD Ot M48.061 SPINAL STENOSIS, LUMBAR REGION WITHOUT N 10/31/2017 SARAH NG MD Ot M89.38 HYPERTROPHY OF BONE, OTHER SITE 11/06/2017 SARAH NG MD Ot M46.86 OTHER SPECIFIED INFLAMMATORY SPONDYLOPAT 11/06/2017 SARAH NG MD R Ot M47.24 OTHER SPONDYLOSIS WITH RADICULOPATHY, 11/06/2017 SARAH NG MD Ot M47.26 OTHER SPONDYLOSIS WITH RADICULOPATHY, 11/06/2017 SARAH NG MD Ot M48.061 SPINAL STENOSIS, LUMBAR REGION WITHOUT N 11/06/2017 SARAH NG MD Ot M89.38 HYPERTROPHY OF BONE, OTHER SITE 03/18/2018 IBRAHIMA HOLLIDAY, COLIN Gilbert Ot Z01.8 18 ENCOUNTER FOR OTHER PREPROCEDURAL EXAMIN 03/26/2018 JOSIAS GUERRERO [employer] Ot 793.80 UNSPEC ABNORMAL MAMMOGRAM 03/26/2018 JOSIAS GUERRERO [employer] Ot V76.12 OTH SCREEN MAMMO-MALIGN NEOPLASM OF JOHN 03/26/2018 JOSIAS GUERRERO CHIEF [facility] Ot 793.80 UNSPEC ABNORMAL MAMMOGRAM 03/26/2018 JOSIAS GUERRERO CHIEF [facility] Ot 793.80 UNSPEC ABNORMAL MAMMOGRAM 03/26/2018 JOSIAS GUERRERO CHIEF [facility] Ot V67.9 FOLLOW-UP EXAM NOS 03/26/2018 KYLE CHAVEZ DO Ot V76.1 2 OTH SCREEN MAMMO-MALIGN NEOPLASM OF JOHN 03/26/2018 KYLE CHAVEZ DO Ot N81.8 9 OTHER FEMALE GENITAL PROLAPSE 03/26/2018 KYLE CHAVEZ DO Ot Z01.8 12 ENCOUNTER FOR PREPROCEDURAL LABORATORY E 03/26/2018 KYLE CHAVEZ DO Ot Z11.2 ENCOUNTER FOR SCREENING FOR OTHER BACTER 03/26/2018 YULIANA KEY MD Ot D47. 2 MONOCLONAL GAMMOPATHY 03/26/2018 YULIANA KEY MD Ot F17.210 NICOTINE DEPENDENCE, CIGARETTES, UNCOMPL 03/26/2018 YULIANA KEY MD Ot F32. 9 MAJOR DEPRESSIVE DISORDER, SINGLE EPISOD 03/26/2018 YULIANA KEY MD Ot F41. 9 ANXIETY DISORDER, UNSPECIFIED 03/26/2018 YULIANA KEY MD Ot M79. 7 FIBROMYALGIA 03/26/2018 YULIANA KEY MD Ot Z79.899 OTHER SATURATOR TENDER (CURRENT) DRUG THERAPY 03/26/2018 KYLE CHAVEZ DO Ot Z12.3 1 ENCNTR SCREEN MAMMOGRAM FOR MALIGNANT NE 03/26/2018 NAHOMY HANCOCK CHIEF [facility] Ot R10.11 RIGHT UPPER QUADRANT PAIN 03/26/2018 JONH HOLLIDAY, MIGUEL Menendez Ot M47.12 OTHER SPONDYLOSIS WITH MYELOPATHY, CERVI 03/26/2018 JONH HOLLIDAY, MIGUEL K Ot R27 .0 ATAXIA, UNSPECIFIED 03/26/2018 JONH HOLLIDAY, MIGUEL K Ot M47.12 OTHER SPONDYLOSIS WITH MYELOPATHY, CERVI 03/26/2018 JONH HOLLIDAY, MIGUEL K Ot R27 .0 ATAXIA, UNSPECIFIED 03/26/2018 CAIT HOLLIDAY, ADRIAN Oconnor Ot Z01.818 ENCOUNTER FOR OTHER PREPROCEDURAL EXAMIN 03/26/2018 CAIT HOLLIDAY, ADRIAN Oconnor Ot Z86.010 PERSONAL HISTORY OF COLONIC POLYPS 03/26/2018 KATT BERTA RAEANN [facility]IEF [facility] Ot N30.01 ACUTE CYSTITIS WITH HEMATURIA 03/26/2018 NAHOMY HANCOCK CHIEF [facility] Ot Z12.31 ENCNTR SCREEN MAMMOGRAM FOR MALIGNANT NE 03/26/2018 BERENICE HOLLIDAY, SARAH R Ot M46.86 OTHER SPECIFIED INFLAMMATORY SPONDYLOPAT 03/26/2018 BERENICE HOLLIDAY, SARAH R Ot M47.24 OTHER SPONDYLOSIS WITH RADICULOPATHY, TH 03/26/2018 BERENICE HOLLIDAY, SARAH R Ot M47.26 OTHER SPONDYLOSIS WITH RADICULOPATHY, OJSE M 03/26/2018 BERENICE HOLLIDAY, SARAH R Ot M48.061 SPINAL STENOSIS, LUMBAR REGION WITHOUT N 03/26/2018 BERENICE HOLLIDAY, SARAH R Ot M89.38 HYPERTROPHY OF BONE, OTHER SITE 03/28/2018 COLIN ALEXANDRA MD Ot D62 ACUTE POSTHEMORRHAGIC ANEMIA 03/28/2018 COLIN ALEXANDRA MD Ot F17.2 10 NICOTINE DEPENDENCE, CIGARETTES, UNCOMPL 03/28/2018 COLIN ALEXANDRA MD Ot K21.9 GASTRO-ESOPHAGEAL REFLUX DISEASE WITHOUT 03/28/2018 COLIN ALEXANDRA MD Ot N81.1 0 CYSTOCELE, UNSPECIFIED 03/28/2018 COLIN ALEXANDRA MD Ot R32 UNSPECIFIED URINARY INCONTINENCE 03/28/2018 COLIN ALEXANDRA MD Ot Z79.8 99 OTHER [facility] (CURRENT) DRUG THERAPY 10/07/2018 NAHOMY HANCOCK CHIEF [facility] Ot Z12.31 ENCNTR SCREEN MAMMOGRAM FOR MALIGNANT NE 10/29/2018 NAHOMY HANCOCK CHIEF [facility] Ot N95.1 MENOPAUSAL AND FEMALE CLIMACTERIC STATES 10/29/2018 NAHOMY HANCOCK CHIEF [facility] Ot Z12.31 ENCNTR SCREEN MAMMOGRAM FOR MALIGNANT NE 10/29/2018 NAHOMY HANCOCK CHIEF [facility] Ot N95.1 MENOPAUSAL AND FEMALE CLIMACTERIC STATES 10/29/2018 NAHOMY HANCOCK CHIEF [facility] Ot Z12.31 ENCNTR SCREEN MAMMOGRAM FOR MALIGNANT NE 10/30/2018 NAHOMY HANCOCK [facility]IEF [facility] Ot M81.0 AGE-RELATED OSTEOPOROSIS W/O CURRENT PAT 10/30/2018 NAHOMY HANCOCK CHIEF [facility] Ot Z12.31 ENCNTR SCREEN MAMMOGRAM FOR MALIGNANT NE 10/30/2018 NAHOMY HANCOCK CHIEF [facility] Ot Z13.820 ENCOUNTER FOR SCREENING FOR OSTEOPOROSIS 10/30/2018 NAHOMY HANCOCK CHIEF [facility] Ot Z78.0 ASYMPTOMATIC MENOPAUSAL STATE 10/30/2018 NAHOMY HANCOCK CHIEF [facility] Ot Z87.891 PERSONAL HISTORY OF NICOTINE DEPENDENCE 11/07/2018 NAHOMY HANCOCK CHIEF [facility] Ot Z87.891 PERSONAL HISTORY OF NICOTINE DEPENDENCE 11/13/2018 NAHOMY HANCOCK CHIEF [facility] Ot F17.210 NICOTINE DEPENDENCE, CIGARETTES, UNCOMPL 11/13/2018 NAHOMY HANCOCK CHIEF [facility] Ot Z12.2 ENCNTR SCREEN FOR MALIGNANT NEOPLASM OF 11/19/2018 NAHOMY HANCOCK CHIEF [facility] Ot M81.0 AGE-RELATED OSTEOPOROSIS W/O CURRENT PAT 11/19/2018 NAHOMY HANCOCK CHIEF [facility] Ot Z12.31 ENCNTR SCREEN MAMMOGRAM FOR MALIGNANT NE 11/19/2018 NAHOMY HANCOCK CHIEF [facility] Ot Z13.820 ENCOUNTER FOR SCREENING FOR OSTEOPOROSIS 11/19/2018 NAHOMY HANCOCK CHIEF [facility] Ot Z78.0 ASYMPTOMATIC MENOPAUSAL STATE 12/05/2018 NAHOMY HANCOCKP Ot F17.210 NICOTINE DEPENDENCE, CIGARETTES, UNCOMPL 12/05/2018 NAHOMY HANCOCKP Ot Z12.2 ENCNTR SCREEN FOR MALIGNANT NEOPLASM OF 05/24/2019 YULIANA KEY MD Ot D47. 2 MONOCLONAL GAMMOPATHY 05/24/2019 YULIANA KEY MD Ot F17.210 NICOTINE DEPENDENCE, CIGARETTES, UNCOMPL 05/24/2019 YULIANA KEY MD Ot F32. 9 MAJOR DEPRESSIVE DISORDER, SINGLE EPISOD 05/24/2019 YULIANA KEY MD Ot F41. 9 ANXIETY DISORDER, UNSPECIFIED 05/24/2019 YULIANA KEY MD Ot M79. 7 FIBROMYALGIA 05/24/2019 YULIANA KEY MD Ot Z79.899 OTHER SATURATOR TENDER (CURRENT) DRUG THERAPY 05/24/2019 YULIANA KEY MD Ot D47. 2 MONOCLONAL GAMMOPATHY 05/24/2019 YULIANA KEY MD Ot F17.210 NICOTINE DEPENDENCE, CIGARETTES, UNCOMPL 05/24/2019 YULIANA KEY MD Ot F32. 9 MAJOR DEPRESSIVE DISORDER, SINGLE EPISOD 05/24/2019 YULIANA KEY MD Ot F41. 9 ANXIETY DISORDER, UNSPECIFIED 05/24/2019 YULIANA KEY MD Ot M79. 7 FIBROMYALGIA 05/24/2019 YULIANA KEY MD Ot Z79.899 OTHER SATURATOR TENDER (CURRENT) DRUG THERAPY 05/27/2019 PARAM AGUILA GABRIEL Ot F17.21 0 NICOTINE DEPENDENCE, CIGARETTES, UNCOMPL 05/27/2019 PARAM AGUILA GABRIEL Ot F31.9 BIPOLAR DISORDER, UNSPECIFIED 05/27/2019 PARAM AGUILA GABRIEL Ot F41.9 ANXIETY DISORDER, UNSPECIFIED 05/27/2019 PARAM AGUILA GABRIEL Ot G43.90 9 MIGRAINE, UNSP, NOT INTRACTABLE, WITHOUT 05/27/2019 PARAM AGUILA GABRIEL Ot G89.29 OTHER CHRONIC PAIN 05/27/2019 PARAM AGUILA GABRIEL Ot I10 ESSENTIAL (PRIMARY) HYPERTENSION 05/27/2019 PARAM AGUILA GABRIEL Ot J30.2 OTHER SEASONAL ALLERGIC RHINITIS 05/27/2019 PARAM AGUILA GABRIEL Ot K21.9 GASTRO-ESOPHAGEAL REFLUX DISEASE WITHOUT 05/27/2019 PARAM DO GABRIEL Ot K58.9 IRRITABLE BOWEL SYNDROME WITHOUT DIARRHE 05/27/2019 PARAM AGUILA GABRIEL Ot L27.0 GEN SKIN ERUPTION DUE TO DRUGS AND MEDS 05/27/2019 PARAM AGUILA GABRIEL Ot M19.91 PRIMARY OSTEOARTHRITIS, UNSPECIFIED SITE 05/27/2019 PARAM AGUILA GABRIEL Ot M79.7 FIBROMYALGIA 05/27/2019 APRAM AGUILA GABRIEL Ot R39.15 URGENCY OF URINATION 05/27/2019 PARAM AGUILA GABRIEL Ot R42 DIZZINESS AND GIDDINESS 05/27/2019 PARAM AGUILA GABRIEL Ot S32.01 9A UNSP FRACTURE OF FIRST LUMBAR VERTEBRA, 05/27/2019 PARAM AGUILA GABRIEL Ot S42.30 1A UNSP FRACTURE OF SHAFT OF HUMERUS, RIGHT 05/27/2019 PARAM AGUILA GABRIEL Ot T40.60 5A ADVERSE EFFECT OF UNSPECIFIED NARCOTICS, 05/27/2019 PARAM AGUILA GABRIEL Ot W19.XX XA UNSPECIFIED FALL, INITIAL ENCOUNTER 05/27/2019 PARAM AGUILA GABRIEL Ot E87.1 HYPO-OSMOLALITY AND HYPONATREMIA 05/27/2019 PARAM AGUILA GABRIEL Ot F17.21 0 NICOTINE DEPENDENCE, CIGARETTES, UNCOMPL 05/27/2019 PARAM AGUILA GABRIEL Ot F31.9 BIPOLAR DISORDER, UNSPECIFIED 05/27/2019 PARAM AGUILA GABRIEL Ot F33.1 MAJOR DEPRESSIVE DISORDER, RECURRENT, MO 05/27/2019 PARAM AGUILA GABRIEL Ot F41.9 ANXIETY DISORDER, UNSPECIFIED 05/27/2019 PARAM AGUILA GABRIEL Ot G43.90 9 MIGRAINE, UNSP, NOT INTRACTABLE, WITHOUT 05/27/2019 PARAM DO GABRIEL Ot G89.29 OTHER CHRONIC PAIN 05/27/2019 PARAM AGUILA GABRIEL Ot I10 ESSENTIAL (PRIMARY) HYPERTENSION 05/27/2019 PARAM AGUILA GABRIEL Ot J30.2 OTHER SEASONAL ALLERGIC RHINITIS 05/27/2019 PARAM AGUILA GABRIEL Ot K21.9 GASTRO-ESOPHAGEAL REFLUX DISEASE WITHOUT 05/27/2019 PARAM AGUILA, GABRIEL Ot K58.9 IRRITABLE BOWEL SYNDROME WITHOUT DIARRHE 05/27/2019 PARAM AGUILA GABRIEL Ot L27.0 GEN SKIN ERUPTION DUE TO DRUGS AND MEDS 05/27/2019 PARAM AGUILA GABRIEL Ot M19.91 PRIMARY OSTEOARTHRITIS, UNSPECIFIED SITE 05/27/2019 PARAM AGUILA GABRIEL Ot M79.7 FIBROMYALGIA 05/27/2019 PARAM AGUILA GABRIEL Ot R39.15 URGENCY OF URINATION 05/27/2019 PARAM AGUILA GABRIEL Ot R42 DIZZINESS AND GIDDINESS 05/27/2019 PARAM AGUILA GABRIEL Ot S32.01 9A UNSP FRACTURE OF FIRST LUMBAR VERTEBRA, 05/27/2019 PARAM AGUILA GABRIEL Ot S42.21 4A UNSP NONDISP FX OF SURGICAL NECK OF RIGH 05/27/2019 PARAM AGUILA GABRIEL Ot S42.30 1A UNSP FRACTURE OF SHAFT OF HUMERUS, RIGHT 05/27/2019 PARAM AGUILA GABRIEL Ot T40.60 5A ADVERSE EFFECT OF UNSPECIFIED NARCOTICS, 05/27/2019 PARAM AGUILA GABRIEL Ot W19.XX XA UNSPECIFIED FALL, INITIAL ENCOUNTER 05/27/2019 GABRIEL VIRGEN DO Ot Z88.5 ALLERGY STATUS TO NARCOTIC AGENT STATUS 05/29/2019 MILLER DO, TAMIKO L Ot F31.9 BIPOLAR DISORDER, UNSPECIFIED 05/29/2019 MILLER DO, TAMIKO L Ot F41.9 ANXIETY DISORDER, UNSPECIFIED 05/29/2019 MILLER DO, TAMIKO L Ot G43.9 09 MIGRAINE, UNSP, NOT INTRACTABLE, WITHOUT 05/29/2019 MILLER DO, TAMIKO L Ot I10 ESSENTIAL (PRIMARY) HYPERTENSION 05/29/2019 MILLER DO, TAMIKO L Ot K21.9 GASTRO-ESOPHAGEAL REFLUX DISEASE WITHOUT 05/29/2019 MILLER DO, TAMIKO L Ot K29.7 0 GASTRITIS, UNSPECIFIED, WITHOUT BLEEDING 05/29/2019 MILLER DO, TAMIKO L Ot K58.9 IRRITABLE BOWEL SYNDROME WITHOUT DIARRHE 05/29/2019 MILLER DO, TAMIKO L Ot M79.7 FIBROMYALGIA 05/29/2019 MILLER DO, TAMIKO L Ot R11.1 0 VOMITING, UNSPECIFIED 05/29/2019 MILLER DO, TAMIKO L Ot Z79.5 1 [facility] (CURRENT) USE OF INHALED STERO 05/29/2019 MILLER DO, TAMIKO L Ot Z79.5 2 [facility] (CURRENT) USE OF SYSTEMIC STER 05/29/2019 MILLER DO, TAMIKO L Ot Z82.4 9 FAMILY HX OF ISCHEM HEART DIS AND OTH DI 05/29/2019 MILLER DO, TAMIKO L Ot Z87.4 40 PERSONAL HISTORY OF URINARY (TRACT) INFE 05/29/2019 MILLER DO, TAMIKO L Ot Z88.5 ALLERGY STATUS TO NARCOTIC AGENT STATUS 05/29/2019 MILLER DO, TAMIKO L Ot Z88.8 ALLERGY STATUS TO OTH DRUG/MEDS/BIOL SUB 05/29/2019 MILLER DO, TAMIKO L Ot Z90.4 9 ACQUIRED ABSENCE OF OTHER SPECIFIED PART 05/29/2019 MILLER DO, TAMIKO L Ot Z90.7 10 ACQUIRED ABSENCE OF BOTH CERVIX AND UTER 05/29/2019 MILLER DO, TAMIKO L Ot Z90.8 9 ACQUIRED ABSENCE OF OTHER ORGANS 06/02/2019 MILLER DO, TAMIKO L Ot F31.9 BIPOLAR DISORDER, UNSPECIFIED 06/02/2019 MILLER DO, TAMIKO L Ot F41.9 ANXIETY DISORDER, UNSPECIFIED 06/02/2019 MILLER DO, TAMIKO L Ot G43.9 09 MIGRAINE, UNSP, NOT INTRACTABLE, WITHOUT 06/02/2019 MILLER DO, TAMIKO L Ot I10 ESSENTIAL (PRIMARY) HYPERTENSION 06/02/2019 MILLER DO, TAMIKO L Ot K21.9 GASTRO-ESOPHAGEAL REFLUX DISEASE WITHOUT 06/02/2019 MILLER DO, TAMIKO L Ot K29.7 0 GASTRITIS, UNSPECIFIED, WITHOUT BLEEDING 06/02/2019 MILLER DO, TAMIKO L Ot K58.9 IRRITABLE BOWEL SYNDROME WITHOUT DIARRHE 06/02/2019 MILLER DO, TAMIKO L Ot M79.7 FIBROMYALGIA 06/02/2019 MILLER DO, TAMIKO L Ot R11.1 0 VOMITING, UNSPECIFIED 06/02/2019 MILLER DO, TAMIKO L Ot Z79.5 1 [facility] (CURRENT) USE OF INHALED STERO 06/02/2019 MILLER DO, TAMIKO L Ot Z79.5 2 SATURATOR TENDER (CURRENT) USE OF SYSTEMIC STER 06/02/2019 MILLER DO, TAMIKO L Ot Z82.4 9 FAMILY HX OF ISCHEM HEART DIS AND OTH DI 06/02/2019 MILLER DO, TAMIKO L Ot Z87.4 40 PERSONAL HISTORY OF URINARY (TRACT) INFE 06/02/2019 MILLER DO, TAMIKO L Ot Z88.5 ALLERGY STATUS TO NARCOTIC AGENT STATUS 06/02/2019 MILLER DO, TAMIKO L Ot Z88.8 ALLERGY STATUS TO OTH DRUG/MEDS/BIOL SUB 06/02/2019 MILLER DO, TAMIKO L Ot Z90.4 9 ACQUIRED ABSENCE OF OTHER SPECIFIED PART 06/02/2019 MILLER DO, TAMIKO L Ot Z90.7 10 ACQUIRED ABSENCE OF BOTH CERVIX AND UTER 06/02/2019 MILLER DO, TAMIKO L Ot Z90.8 9 ACQUIRED ABSENCE OF OTHER ORGANS Procedures Code Description [place] [address] ROUT INE VENIPUNCTURE 04/24/2012 10624 THER APUTIC INJ SQ/IM 04/24/2012 J1885 LANDON DOL INJ 04/24/2012 36986 ESR/ SED RATE 04/24/2012 55220 CRP 04/24/2012 82713 RA FACTOR 04/24/2012 ANAANA KATTY ANALYZER (SCREEN) 04/24/2012 20303 TANYA JOSE OF NAIL PLATE 06/01/2012 76521 TANYA JOSE OF NAIL PLATE 06/05/2012 52989 ROUT INE VENIPUNCTURE 09/16/2013 [id number] GF R CALC (RESULT ONLY) 09/16/2013 24523 BMP 09/16/2013 45334 TANYA JOSE OF NAIL BED 10/07/2013 53230 UA W / CULTURE IF INDICATED 02/05/2014 72424 UA W / CULTURE IF INDICATED 03/16/2014 52723 CULT URE URINE 03/17/2014 83873 ROUT INE VENIPUNCTURE 03/24/2014 93531 THER APUTIC INJ SQ/IM 03/24/2014 J3301 TAL LOG INJ, PER 10 MG 03/24/2014 91950 CBC 03/24/2014 [id number] GF R CALC (RESULT ONLY) 03/24/2014 30034 CMP 03/24/2014 PODIATRY W ILDE, ORLY 04/15/2014 21716 MAMM OGRAM DX, RIGHT 05/05/2014 99857 NAIL REMOVAL PERMANENT (PARTIAL OR COMPLETE) 06/26/2014 43791 ROUT INE VENIPUNCTURE 09/16/2014 02376 BONE MINERAL DENSITY, HEEL US (IN HOUSE) 09/16/2014 78393 MARIBEL MIN D 25-HYDROXY (D2,D3, TOTAL) 09/16/2014 19430 VIT B 12 09/16/2014 [id number] RE PAIR PELVIC SUBCU/FASCIA, OPEN APPROAC 05/18/2015 [id number] RE MOVAL OF SYNTH SUB FROM VAGINA CUL-D 05/18/2015 [id number] CO NTROL BLEEDING IN FEMALE PERINEUM, OPE 05/19/2015 Results Test Result Range Complete blood count (CBC) with automate d white blood cell (WBC) differential - 04/24/16 09:43 Blood leukocytes automated count (number/volume) 14.7 10*3/uL 4.3-11.0 Blood erythrocytes automated count (number/volume) 4.51 10*6/uL 4.35-5.85 Venous blood hemoglobin measurement (mass/volume) 14.3 g/dL 11.5-16.0 Blood hematocrit (volume fraction) 41 % 35-52 Automated erythrocyte mean corpuscular volume 91 [ foz_us] 80-99 Automated erythrocyte mean corpuscular h emoglobin (mass per erythrocyte) 32 pg 25-34 Automated erythrocyte mean corpuscular h emoglobin concentration measurement (mass/volume) 35 g/dL 32-36 Automated erythrocyte distribution width ratio 12. 6 % 10.0- 14.5 Automated blood platelet count (count/volume) 251 10*3/uL [...] 10*3 1.0-4.0 Blood monocytes automated count (number/volume) 1. 6 10*3 0.0-1.0 Automated eosinophil count 0.0 10*3/uL 0 .0-0.3 Automated blood basophil count (count/volume) 0.0 10*3/uL 0.0-0.1 PT panel in platelet poor plasma by coag ulation assay - 04/24/16 09:43 Prothrombin time (PT) in platelet poor plasma by coagu lation assay 11.8 s 12.2-14.7 INR in platelet poor plasma or blood by coagulation as say 0.9 0.8-1.4 Comprehensive metabolic panel - 04/24/16 09:43 Serum or plasma sodium measurement (moles/volume) 130 mmol/L 135-145 Serum or plasma potassium measurement (moles/volume) 4.1 mmol/L 3.6-5.0 Serum or plasma chloride measurement (moles/volume) 94 mmol/L 98-107 Carbon dioxide 27 mmol/L 21-32 Serum or plasma anion gap determination (moles/volume) 9 mmol/L 5-14 Serum or plasma urea nitrogen measurement (mass/volume ) 6 mg/dL 7-18 Serum or plasma creatinine measurement (mass/volume) 0.61 mg/dL 0.60-1.30 Serum or plasma urea nitrogen/creatinine mass ratio 10 NRG Serum or plasma creatinine measurement w ith calculation of estimated glomerular filtration rate > NRG Serum or plasma glucose measurement (mass/volume) 79 mg/dL 70-105 Serum or plasma calcium measurement (mass/volume) 9.0 mg/dL 8.5-10.1 Serum or plasma total bilirubin measurement (mass/volu me) 0.5 mg/dL 0.1-1.0 Serum or plasma alkaline phosphatase shakira surement (enzymatic activity/volume) 91 U/L 40-136 Serum or plasma aspartate aminotransfera se measurement (enzymatic activity/volume) 12 U/L 5-34 Serum or plasma alanine aminotransferase measurement (enzymatic activity/volume) 10 U/L 0-55 Serum or plasma protein measurement (mass/volume) 6.7 g/dL 6.4-8.2 Serum or plasma albumin measurement (mass/volume) 4.1 g/dL 3.2-4.5 Complete urinalysis with reflex to cultu re - 04/24/16 09:43 Urine color determination RED NRG Urine clarity determination SLIGHTLY CLOUDY NRG Urine pH measurement by test strip 7 5-9 Specific gravity of urine by test strip 1.010 1.016-1.022 Urine protein assay by test strip, semi-quantitative 3+ NEGATIVE Urine glucose detection by automated test strip NE GATIVE NEGATIVE Erythrocytes detection in urine sediment by light micr oscopy 5+ NEGATIVE Urine ketones detection by automated test strip 1+ NEGATIVE Urine nitrite detection by test strip POSITIVE NEGATIVE Urine total bilirubin detection by test strip NEGA TIVE NEGATIVE Urine urobilinogen measurement by automated test strip (mass/volume) NORMAL NORMAL Urine leukocyte esterase detection by dipstick 2+ NEGATIVE Automated urine sediment erythrocyte cou nt by microscopy (number/high power field) > [HPF] NRG Automated urine sediment leukocyte count by microscopy (number/high power field) [HPF] NRG Bacteria detection in urine sediment by light microsco py FEW NRG Squamous epithelial cells detection in u rine sediment by light microscopy 0-2 NRG Crystals detection in urine sediment by light microsco py NONE NRG Casts detection in urine sediment by light microscopy NONE NRG Mucus detection in urine sediment by light microscopy NEGATIVE NRG Complete urinalysis with reflex to culture YES NRG Blood manual differential performed dete ction - 04/24/16 09:43 Blood monocytes/100 leukocytes 11 % NRG Manual blood segmented neutrophils/100 leukocytes 75 % NRG Blood band neutrophils/100 leukocytes 0 % NRG Manual blood lymphocytes/100 leukocytes 14 % NRG Manual eosinophils/100 leukocytes in nose 0 % NRG Manual blood basophils/100 leukocytes 0 % NRG Blood erythrocyte morphology finding identification NORMAL NRG Bacterial urine culture - 04/24/16 09:43 Bacterial urine culture [id number] NRG COLONY COUNT 10,000/ML - 100,000/ML NRG FTX;REPORTABLE SENSITIVITY REPORTED 04/26/16 8:15 NRG FREE TEXT ENTRY 3 PLUS MIXED GRAM POSITIVES <10,00 0/ML NRG Bacterial susceptibility panel - 6 09:43 Gentamicin susceptibility test by minimum inhibitory c oncentration <= NRG Trimethoprim/sulfamethoxazole susceptibi lity test by minimum inhibitoryconcentration <= NRG Ampicillin susceptibility test by minimum inhibitory c oncentration <= NRG Tobramycin susceptibility test by minimum inhibitory c oncentration <= NRG Cefazolin susceptibility test by minimum inhibitory co ncentration <= NRG Ceftriaxone susceptibility test by minimum inhibitory concentration <= NRG Ampicillin/sulbactam susceptibility test by minimum inhibitory concentration <= NRG Piperacillin/tazobactam susceptibility t est by minimum inhibitory concentration <= NRG Ciprofloxacin susceptibility test by minimum inhibitor y concentration <= NRG Meropenem susceptibility test by minimum inhibitory co ncentration <= NRG Nitrofurantoin susceptibility test by mi nimum inhibitory concentration <= NRG Aztreonam susceptibility test by minimum inhibitory co ncentration <= NRG Extended spectrum beta lactamase (ESBL) producing bacteria susceptibility test by minimum inhibitory concentration - NRG Complete blood count (CBC) with automate d white blood cell (WBC) differential - 04/25/16 08:27 Blood leukocytes automated count (number/volume) 7.1 10*3/uL 4.3-11.0 Blood erythrocytes automated count (number/volume) 4.35 10*6/uL 4.35-5.85 Venous blood hemoglobin measurement (mass/volume) 13.8 g/dL 11.5-16.0 Blood hematocrit (volume fraction) 40 % 35-52 Automated erythrocyte mean corpuscular volume 92 [ foz_us] 80-99 Automated erythrocyte mean corpuscular h emoglobin (mass per erythrocyte) 32 pg 25-34 Automated erythrocyte mean corpuscular h emoglobin concentration measurement (mass/volume) 35 g/dL 32-36 Automated erythrocyte distribution width ratio 12. 6 % 10.0- 14.5 Automated blood platelet count (count/volume) 237 10*3/uL [...] 10*3 1.0-4.0 Blood monocytes automated count (number/volume) 0. 8 10*3 0.0-1.0 Automated eosinophil count 0.0 10*3/uL 0 .0-0.3 Automated blood basophil count (count/volume) 0.0 10*3/uL 0.0-0.1 Comprehensive metabolic panel - 04/25/16 08:27 Serum or plasma sodium measurement (moles/volume) 131 mmol/L 135-145 Serum or plasma potassium measurement (moles/volume) 4.0 mmol/L 3.6-5.0 Serum or plasma chloride measurement (moles/volume) 97 mmol/L 98-107 Carbon dioxide 24 mmol/L 21-32 Serum or plasma anion gap determination (moles/volume) 10 mmol/L 5-14 Serum or plasma urea nitrogen measurement (mass/volume ) 4 mg/dL 7-18 Serum or plasma creatinine measurement (mass/volume) 0.64 mg/dL 0.60-1.30 Serum or plasma urea nitrogen/creatinine mass ratio 6 NRG Serum or plasma creatinine measurement w ith calculation of estimated glomerular filtration rate > NRG Serum or plasma glucose measurement (mass/volume) 87 mg/dL 70-105 Serum or plasma calcium measurement (mass/volume) 8.5 mg/dL 8.5-10.1 Serum or plasma total bilirubin measurement (mass/volu me) 0.4 mg/dL 0.1-1.0 Serum or plasma alkaline phosphatase shakira surement (enzymatic activity/volume) 73 U/L 40-136 Serum or plasma aspartate aminotransfera se measurement (enzymatic activity/volume) 10 U/L 5-34 Serum or plasma alanine aminotransferase measurement (enzymatic activity/volume) 11 U/L 0-55 Serum or plasma protein [...] 5-14 Serum or plasma urea nitrogen measurement (mass/volume ) 6 mg/dL 7-18 Serum or plasma creatinine measurement (mass/volume) 0.62 mg/dL 0.60-1.30 Serum or plasma urea nitrogen/creatinine mass ratio 10 NRG Serum or plasma creatinine measurement w ith calculation of estimated glomerular filtration rate > NRG Serum or plasma glucose measurement (mass/volume) 72 mg/dL 70-105 Serum or plasma calcium measurement (mass/volume) 8.5 mg/dL 8.5-10.1 Serum or plasma total bilirubin measurement (mass/volu me) 0.3 mg/dL 0.1-1.0 Serum or plasma alkaline phosphatase shakira surement (enzymatic activity/volume) 81 U/L 40-136 Serum or plasma aspartate aminotransfera se measurement (enzymatic activity/volume) 14 U/L 5-34 Serum or plasma alanine aminotransferase measurement (enzymatic activity/volume) 6 U/L 0-55 Serum or plasma protein measurement (mass/volume) 6.1 g/dL 6.4-8.2 Serum or plasma albumin measurement (mass/volume) 3.8 g/dL 3.2-4.5 Lipase - 05/18/16 13:19 Lipase 6 U/L 8-78 [id number] - 09/20/16 09:12 Serum or plasma urea nitrogen measurement (mass/volume ) 8 mg/dL 7-18 Serum or plasma creatinine measurement (mass/volume) 0.68 mg/dL 0.60-1.30 Serum or plasma urea nitrogen/creatinine mass ratio 12 NRG Serum or plasma creatinine measurement w ith calculation of estimated glomerular filtration rate > NRG Complete blood count (CBC) with automate d white blood cell (WBC) differential - 10/23/16 14:28 Blood leukocytes automated count (number/volume) 7.0 10*3/uL 4.3-11.0 Blood erythrocytes automated count (number/volume) 4.29 10*6/uL 4.35-5.85 Venous blood hemoglobin measurement (mass/volume) 13.5 g/dL 11.5-16.0 Blood hematocrit (volume fraction) 39 % 35-52 Automated erythrocyte mean corpuscular volume 91 [ foz_us] 80-99 Automated erythrocyte mean corpuscular h emoglobin (mass per erythrocyte) 32 pg 25-34 Automated erythrocyte mean corpuscular h emoglobin concentration measurement (mass/volume) 34 g/dL 32-36 Automated erythrocyte distribution width ratio 12. 1 % 10.0- 14.5 Automated blood platelet count (count/volume) 222 10*3/uL [...] 10*3 1.0-4.0 Blood monocytes automated count (number/volume) 0. 7 10*3 0.0-1.0 Automated eosinophil count 0.0 10*3/uL 0 .0-0.3 Automated blood basophil count (count/volume) 0.0 10*3/uL 0.0-0.1 Comprehensive metabolic panel - 10/23/16 14:28 Serum or plasma sodium measurement (moles/volume) 128 mmol/L 135-145 Serum or plasma potassium measurement (moles/volume) 4.1 mmol/L 3.6-5.0 Serum or plasma chloride measurement (moles/volume) 92 mmol/L 98-107 Carbon dioxide 29 mmol/L 21-32 Serum or plasma anion gap determination (moles/volume) 7 mmol/L 5-14 Serum or plasma urea nitrogen measurement (mass/volume ) 5 mg/dL 7-18 Serum or plasma creatinine measurement (mass/volume) 0.61 mg/dL 0.60-1.30 Serum or plasma urea nitrogen/creatinine mass ratio 8 NRG Serum or plasma creatinine measurement w ith calculation of estimated glomerular filtration rate > NRG Serum or plasma glucose measurement (mass/volume) 80 mg/dL 70-105 Serum or plasma calcium measurement (mass/volume) 8.4 mg/dL 8.5-10.1 Serum or plasma total bilirubin measurement (mass/volu me) 0.3 mg/dL 0.1-1.0 Serum or plasma alkaline phosphatase shakira surement (enzymatic activity/volume) 64 U/L 40-136 Serum or plasma aspartate aminotransfera se measurement (enzymatic activity/volume) 12 U/L 5-34 Serum or plasma alanine aminotransferase measurement (enzymatic activity/volume) 9 U/L 0-55 Serum or plasma protein measurement (mass/volume) 5.8 g/dL 6.4-8.2 Serum or plasma albumin measurement (mass/volume) 3.6 g/dL 3.2-4.5 Magnesium - 10/23/16 14:28 Magnesium 2.0 mg/dL 1.8-2.4 Valproic acid - 10/23/16 14:28 Valproic acid 64.6 ug/mL 50.0-100.0 Bacterial urine culture - 11/18/16 13:00 URINE CULTURE RESULTS <10,000/ML NR Complete blood count (CBC) with automate d white blood cell (WBC) differential - 11/25/16 15:50 Blood leukocytes automated count (number/volume) 6.6 10*3/uL 4.3-11.0 Blood erythrocytes automated count (number/volume) 3.97 10*6/uL 4.35-5.85 Venous blood hemoglobin measurement (mass/volume) 12.5 g/dL 11.5-16.0 Blood hematocrit (volume fraction) 37 % 35-52 Automated erythrocyte mean corpuscular volume 92 [ foz_us] 80-99 Automated erythrocyte mean corpuscular h emoglobin (mass per erythrocyte) 32 pg 25-34 Automated erythrocyte mean corpuscular h emoglobin concentration measurement (mass/volume) 34 g/dL 32-36 Automated erythrocyte distribution width ratio 12. 0 % 10.0- 14.5 Automated blood platelet count (count/volume) 237 10*3/uL [...] 10*3 1.0-4.0 Blood monocytes automated count (number/volume) 0. 8 10*3 0.0-1.0 Automated eosinophil count 0.0 10*3/uL 0 .0-0.3 Automated blood basophil count (count/volume) 0.1 10*3/uL 0.0-0.1 Comprehensive metabolic panel - 11/25/16 15:50 Serum or plasma sodium measurement (moles/volume) 127 mmol/L 135-145 Serum or plasma potassium measurement (moles/volume) 4.2 mmol/L 3.6-5.0 Serum or plasma chloride measurement (moles/volume) 93 mmol/L 98-107 Carbon dioxide 26 mmol/L 21-32 Serum or plasma anion gap determination (moles/volume) 8 mmol/L 5-14 Serum or plasma urea nitrogen measurement (mass/volume ) 7 mg/dL 7-18 Serum or plasma creatinine measurement (mass/volume) 0.78 mg/dL 0.60-1.30 Serum or plasma urea nitrogen/creatinine mass ratio 9 NRG Serum or plasma creatinine measurement w ith calculation of estimated glomerular filtration rate > NRG Serum or plasma glucose measurement (mass/volume) 89 mg/dL 70-105 Serum or plasma calcium measurement (mass/volume) 8.6 mg/dL 8.5-10.1 Serum or plasma total bilirubin measurement (mass/volu me) 0.2 mg/dL 0.1-1.0 Serum or plasma alkaline phosphatase shakira surement (enzymatic activity/volume) 77 U/L 40-136 Serum or plasma aspartate aminotransfera se measurement (enzymatic activity/volume) 12 U/L 5-34 Serum or plasma alanine aminotransferase measurement (enzymatic activity/volume) 10 U/L 0-55 Serum or plasma protein measurement (mass/volume) 6.1 g/dL 6.4-8.2 Serum or plasma albumin measurement (mass/volume) 3.6 g/dL 3.2-4.5 Complete urinalysis with reflex to cultu re - 11/25/16 15:51 Urine color determination YELLOW NRG Urine clarity determination CLEAR NR G Urine pH measurement by test strip 7 5-9 Specific gravity of urine by test strip 1.010 1.016-1.022 Urine protein assay by test strip, semi-quantitative NEGATIVE NEGATIVE Urine glucose detection by automated test strip NE GATIVE NEGATIVE Erythrocytes detection in urine sediment by light micr oscopy NEGATIVE NEGATIVE Urine ketones detection by automated test strip NE GATIVE NEGATIVE Urine nitrite detection by test strip NEGATIVE NEGATIVE Urine total bilirubin detection by test strip NEGA TIVE NEGATIVE Urine urobilinogen measurement by automated test strip (mass/volume) NORMAL NORMAL Urine leukocyte esterase detection by dipstick NEG ATIVE NEGATIVE Automated urine sediment erythrocyte cou nt by microscopy (number/high power field) NONE NRG Automated urine sediment leukocyte count by microscopy (number/high power field) NONE NRG Bacteria detection in urine sediment by light microsco py NEGATIVE NRG Squamous epithelial cells detection in u rine sediment by light microscopy 0-2 NRG Crystals detection in urine sediment by light microsco py NONE NRG Casts detection in urine sediment by light microscopy NONE NRG Mucus detection in urine sediment by light microscopy NEGATIVE NRG Complete urinalysis with reflex to culture NO NRG Complete blood count (CBC) with automate d white blood cell (WBC) differential - 12/01/16 09:30 Blood leukocytes automated count (number/volume) 7.8 10*3/uL 4.3-11.0 Blood erythrocytes automated count (number/volume) 4.54 10*6/uL 4.35-5.85 Venous blood hemoglobin measurement (mass/volume) 14.3 g/dL 11.5-16.0 Blood hematocrit (volume fraction) 42 % 35-52 Automated erythrocyte mean corpuscular volume 93 [ foz_us] 80-99 Automated erythrocyte mean corpuscular h emoglobin (mass per erythrocyte) 32 pg 25-34 Automated erythrocyte mean corpuscular h emoglobin concentration measurement (mass/volume) 34 g/dL 32-36 Automated erythrocyte distribution width ratio 12. 3 % 10.0- 14.5 Automated blood platelet count (count/volume) 241 10*3/uL [...] 10*3 1.0-4.0 Blood monocytes automated count (number/volume) 0. 9 10*3 0.0-1.0 Automated eosinophil count 0.0 10*3/uL 0 .0-0.3 Automated blood basophil count (count/volume) 0.0 10*3/uL 0.0-0.1 Blood lactic acid measurement (moles/vol ume) - 12/01/16 09:30 Blood lactic acid measurement [...] 5-14 Serum or plasma urea nitrogen measurement (mass/volume ) 6 mg/dL 7-18 Serum or plasma creatinine measurement (mass/volume) 0.64 mg/dL 0.60-1.30 Serum or plasma urea nitrogen/creatinine mass ratio 9 0-20 Serum or plasma creatinine measurement w ith calculation of estimated glomerular filtration rate > NRG Serum or plasma glucose measurement (mass/volume) 86 mg/dL 70-105 Serum or plasma calcium measurement (mass/volume) 9.1 mg/dL 8.5-10.1 Serum or plasma total bilirubin measurement (mass/volu me) 0.3 mg/dL 0.1-1.0 Serum or plasma alkaline phosphatase shakira surement (enzymatic activity/volume) 79 U/L 40-136 Serum or plasma aspartate aminotransfera se measurement (enzymatic activity/volume) 15 U/L 5-34 Serum or plasma alanine aminotransferase measurement (enzymatic activity/volume) 10 U/L 0-55 Serum or plasma protein measurement (mass/volume) 7.3 g/dL 6.4-8.2 Serum or plasma albumin measurement (mass/volume) 3.9 g/dL 3.2-4.5 Complete urinalysis with reflex to cultu re - 12/01/16 09:43 Urine color determination YELLOW NRG Urine clarity determination CLEAR NR G Urine pH measurement by test strip 7 5-9 Specific gravity of urine by test strip 1.010 1.016-1.022 Urine protein assay by test strip, semi-quantitative 2+ NEGATIVE Urine glucose detection by automated test strip NE GATIVE NEGATIVE Erythrocytes detection in urine sediment by light micr oscopy 5+ NEGATIVE Urine ketones detection by automated test strip NE GATIVE NEGATIVE Urine nitrite detection by test strip NEGATIVE NEGATIVE Urine total bilirubin detection by test strip NEGA TIVE NEGATIVE Urine urobilinogen measurement by automated test strip (mass/volume) NORMAL NORMAL Urine leukocyte esterase detection by dipstick 3+ NEGATIVE Automated urine sediment erythrocyte cou nt by microscopy (number/high power field) [HPF] NRG Automated urine sediment leukocyte count by microscopy (number/high power field) [HPF] NRG Bacteria detection in urine sediment by light microsco py TRACE NRG Squamous epithelial cells detection in u rine sediment by light microscopy NONE NRG Crystals detection in urine sediment by light microsco py NONE NRG Casts detection in urine sediment by light microscopy NONE NRG Mucus detection in urine sediment by light microscopy NEGATIVE NRG Complete urinalysis with reflex to culture YES NRG Bacterial urine culture - 12/01/16 09:43 Bacterial urine culture [id number] NRG COLONY COUNT <10,000 NRG FTX;REPORTABLE NO FURTHER STUDIES UNLESS REQUESTED NRG Bacterial blood culture - 12/01/16 09:43 Bacterial blood culture NG NRG Bacterial susceptibility panel - 7 09:43 Gentamicin susceptibility test by minimum inhibitory c oncentration R NRG Vancomycin susceptibility test by minimum inhibitory c oncentration 1 NRG Levofloxacin susceptibility test by minimum inhibitory concentration 0.5 NRG Tetracycline susceptibility test by minimum inhibitory concentration >= NRG Ampicillin susceptibility test by minimum inhibitory c oncentration <= NRG Nitrofurantoin susceptibility test by mi nimum inhibitory concentration <= NRG Bacterial blood culture - 12/01/16 10:34 Bacterial blood culture NG NRG CULTURE, AEROBIC - 04/24/17 09:23 CULTURE, AEROBIC BACTERIA SEE NOTE NRG CULTURE, URINE - 05/27/17 14:03 CULTURE, URINE, ROUTINE SEE NOTE NRG Complete urinalysis with reflex to cultu re - 08/26/17 06:40 Urine color determination RED NRG Urine clarity determination BLOODY NR G Urine pH measurement by test strip 8 5-9 Specific gravity of urine by test strip 1.015 1.016-1.022 Urine protein assay by test strip, semi-quantitative 3+ NEGATIVE Urine glucose detection by automated test strip NE GATIVE NEGATIVE Erythrocytes detection in urine sediment by light micr oscopy 5+ NEGATIVE Urine ketones detection by automated test strip 1+ NEGATIVE Urine nitrite detection by test strip POSITIVE NEGATIVE Urine total bilirubin detection by test strip 3+ NEGATIVE Urine urobilinogen measurement by automated test strip (mass/volume) 8 mg/dL NORMAL Urine leukocyte esterase detection by dipstick 2+ NEGATIVE Automated urine sediment erythrocyte cou nt by microscopy (number/high power field) TNTC NRG Automated urine sediment leukocyte count by microscopy (number/high power field) NONE NRG Bacteria detection in urine sediment by light microsco py NEGATIVE NRG Crystals detection in urine sediment by light microsco py NONE NRG Casts detection in urine sediment by light microscopy NONE NRG Mucus detection in urine sediment by light microscopy NEGATIVE NRG Complete urinalysis with reflex to culture NO NRG Complete blood count (CBC) with automate d white blood cell (WBC) differential - 08/26/17 08:01 Blood leukocytes automated count (number/volume) 14.2 10*3/uL 4.3-11.0 Blood erythrocytes automated count (number/volume) 4.45 10*6/uL 4.35-5.85 Venous blood hemoglobin measurement (mass/volume) 14.1 g/dL 11.5-16.0 Blood hematocrit (volume fraction) 42 % 35-52 Automated erythrocyte mean corpuscular volume 95 [ foz_us] 80-99 Automated erythrocyte mean corpuscular h emoglobin (mass per erythrocyte) 32 pg 25-34 Automated erythrocyte mean corpuscular h emoglobin concentration measurement (mass/volume) 33 g/dL 32-36 Automated erythrocyte distribution width ratio 12. 8 % 10.0- 14.5 Automated blood platelet count (count/volume) 270 10*3/uL 130-400 Automated blood platelet mean volume measurement 10.4 [foz_us] 7.4-10.4 Automated blood neutrophils/100 leukocytes 64 % 42-75 Automated blood lymphocytes/100 leukocytes 24 % 12-44 Blood monocytes/100 leukocytes 11 % 0-12 Automated blood eosinophils/100 leukocytes 1 % 0-10 Automated blood basophils/100 leukocytes 0 % 0-10 Blood neutrophils automated count (number/volume) 9.1 10*3 1.8-7.8 Blood lymphocytes automated count (number/volume) 3.4 10*3 1.0-4.0 Blood monocytes automated count (number/volume) 1. 6 10*3 0.0-1.0 Automated eosinophil count 0.1 10*3/uL 0 .0-0.3 Automated blood basophil count (count/volume) 0.0 10*3/uL 0.0-0.1 Comprehensive metabolic panel - 08/26/17 08:01 Serum or plasma sodium measurement (moles/volume) 137 mmol/L 135-145 Serum or plasma potassium measurement (moles/volume) 4.2 mmol/L 3.6-5.0 Serum or plasma chloride measurement (moles/volume) 99 mmol/L 98-107 Carbon dioxide 31 mmol/L 21-32 Serum or plasma anion gap determination (moles/volume) 7 mmol/L 5-14 Serum or plasma urea nitrogen measurement (mass/volume ) 9 mg/dL 7-18 Serum or plasma creatinine measurement (mass/volume) 0.72 mg/dL 0.60-1.30 Serum or plasma urea nitrogen/creatinine mass ratio 13 NRG Serum or plasma creatinine measurement w ith calculation of estimated glomerular filtration rate > NRG Serum or plasma glucose measurement (mass/volume) 84 mg/dL 70-105 Serum or plasma calcium measurement (mass/volume) 9.2 mg/dL 8.5-10.1 Serum or plasma total bilirubin measurement (mass/volu me) 0.4 mg/dL 0.1-1.0 Serum or plasma alkaline phosphatase shakira surement (enzymatic activity/volume) 89 U/L 40-136 Serum or plasma aspartate aminotransfera se measurement (enzymatic activity/volume) 17 U/L 5-34 Serum or plasma alanine aminotransferase measurement (enzymatic activity/volume) 15 U/L 0-55 Serum or plasma protein measurement (mass/volume) 6.5 g/dL 6.4-8.2 Serum or plasma albumin measurement (mass/volume) 3.9 g/dL 3.2-4.5 CMP - 12/31/17 07:55 GLUCOSE 94 mg/dL 65-99 UREA NITROGEN (BUN) 8 mg/dL 7-25 CREATININE 0.61 mg/dL 0.50-0.99 eGFR NON-AFR. DANISH 98 mL/min/1.73m2 > OR = 60 eGFR 113 mL/min/1.73m2 > OR = 60 BUN/CREATININE RATIO NOT APPLICABLE (calc) 6-22 SODIUM 138 mmol/L 135-146 POTASSIUM 4.6 mmol/L 3.5-5.3 CHLORIDE 97 mmol/L 98-110 CARBON DIOXIDE 28 mmol/L 20-31 CALCIUM 9.4 mg/dL 8.6-10.4 PROTEIN, TOTAL 6.7 g/dL 6.1-8.1 ALBUMIN 3.9 g/dL 3.6-5.1 GLOBULIN 2.8 g/dL (calc) 1.9-3.7 ALBUMIN/GLOBULIN RATIO 1.4 (calc) 1.0-2. 5 BILIRUBIN, TOTAL 0.4 mg/dL 0.2-1.2 ALKALINE PHOSPHATASE 85 U/L 33-130 AST 15 U/L 10-35 ALT 11 U/L 6-29 VALPROIC ACID/DEPAKOTE - 12/31/17 10:47 VALPROIC ACID 47.5 mg/L 50.0-100.0 Methicillin resistant Staphylococcus aur eus (MRSA) screening culture - 03/26/18 07:30 Methicillin resistant Staphylococcus aureus (MRSA) scr eening culture NEG NRG Complete blood count (CBC) with automate d white blood cell (WBC) differential - 03/26/18 16:21 Blood leukocytes automated count (number/volume) 19.5 10*3/uL 4.3-11.0 Blood erythrocytes automated count (number/volume) 4.00 10*6/uL 4.35-5.85 Venous blood hemoglobin measurement (mass/volume) 12.9 g/dL 11.5-16.0 Blood hematocrit (volume fraction) 37 % 35-52 Automated erythrocyte mean corpuscular volume 93 [ foz_us] 80-99 Automated erythrocyte mean corpuscular h emoglobin (mass per erythrocyte) 32 pg 25-34 Automated erythrocyte mean corpuscular h emoglobin concentration measurement (mass/volume) 35 g/dL 32-36 Automated erythrocyte distribution width ratio 12. 3 % 10.0- 14.5 Automated blood platelet count (count/volume) 252 10*3/uL 130-400 Automated blood platelet mean volume measurement 10.4 [foz_us] 7.4-10.4 Automated blood neutrophils/100 leukocytes 87 % 42-75 Automated blood lymphocytes/100 leukocytes 5 % 12-44 Blood monocytes/100 leukocytes 8 % 0-12 Automated blood eosinophils/100 leukocytes 0 % 0-10 Automated blood basophils/100 leukocytes 0 % 0-10 Blood neutrophils automated count (number/volume) 17.0 10*3 1.8-7.8 Blood lymphocytes automated count (number/volume) 1.0 10*3 1.0-4.0 Blood monocytes automated count (number/volume) 1. 5 10*3 0.0-1.0 Automated eosinophil count 0.0 10*3/uL 0 .0-0.3 Automated blood basophil count (count/volume) 0.0 10*3/uL 0.0-0.1 Blood manual differential performed dete ction - 03/26/18 16:21 Blood monocytes/100 leukocytes 8 % NRG Manual blood segmented neutrophils/100 leukocytes 86 % NRG Blood band neutrophils/100 leukocytes 1 % NRG Manual blood lymphocytes/100 leukocytes 5 % NRG Manual eosinophils/100 leukocytes in nose 0 % NRG Manual blood basophils/100 leukocytes 0 % NRG Blood erythrocyte morphology finding identification NORMAL NRG RED CELLS LEUKO REDUCED AS1 - 03/26/18 2 3:35 RED CELLS LEUKO REDUCED AS1 T RANSFUSED 03/27/18 1134 NRG Blood type T Indirect antibody screen pa jeanmarie - 03/26/18 23:35 ABO+Rh group OP NRG Transfusion band number [id number] NRG Blood group antibody screen NEGATIVE NR G Complete blood count (CBC) with automate d white blood cell (WBC) differential - 03/27/18 04:47 Blood leukocytes automated count (number/volume) 17.3 10*3/uL 4.3-11.0 Blood erythrocytes automated count (number/volume) 2.52 10*6/uL 4.35-5.85 Venous blood hemoglobin measurement (mass/volume) 8.2 g/dL 11.5-16.0 Blood hematocrit (volume fraction) 24 % 35-52 Automated erythrocyte mean corpuscular volume 94 [ foz_us] 80-99 Automated erythrocyte mean corpuscular h emoglobin (mass per erythrocyte) 33 pg 25-34 Automated erythrocyte mean corpuscular h emoglobin concentration measurement (mass/volume) 35 g/dL 32-36 Automated erythrocyte distribution width ratio 11. 9 % 10.0- 14.5 Automated blood platelet count (count/volume) 207 10*3/uL 130-400 Automated blood platelet mean volume measurement 10.7 [foz_us] 7.4-10.4 Automated blood neutrophils/100 leukocytes 76 % 42-75 Automated blood lymphocytes/100 leukocytes 14 % 12-44 Blood monocytes/100 leukocytes 10 % 0-12 Automated blood eosinophils/100 leukocytes 0 % 0-10 Automated blood basophils/100 leukocytes 0 % 0-10 Blood neutrophils automated count (number/volume) 13.2 10*3 1.8-7.8 Blood lymphocytes automated count (number/volume) 2.4 10*3 1.0-4.0 Blood monocytes automated count (number/volume) 1. 7 10*3 0.0-1.0 Automated eosinophil count 0.0 10*3/uL 0 .0-0.3 Automated blood basophil count (count/volume) 0.0 10*3/uL 0.0-0.1 Whole blood basic metabolic panel - 03/18 0 04:47 Serum or plasma sodium measurement (moles/volume) 130 mmol/L 135-145 Serum or plasma potassium measurement (moles/volume) 4.5 mmol/L 3.6-5.0 Serum or plasma chloride measurement (moles/volume) 98 mmol/L 98-107 Carbon dioxide 25 mmol/L 21-32 Serum or plasma anion gap determination (moles/volume) 7 mmol/L 5-14 Serum or plasma urea nitrogen measurement (mass/volume ) 7 mg/dL 7-18 Serum or plasma creatinine measurement (mass/volume) 0.71 mg/dL 0.60-1.30 Serum or plasma urea nitrogen/creatinine mass ratio 10 NRG Serum or plasma creatinine measurement w ith calculation of estimated glomerular filtration rate > NRG Serum or plasma glucose measurement (mass/volume) 110 mg/dL 70-105 Serum or plasma calcium measurement (mass/volume) 8.1 mg/dL 8.5-10.1 Complete blood count (CBC) with automate d white blood cell (WBC) differential - 03/27/18 15:15 Blood leukocytes automated count (number/volume) 15.2 10*3/uL 4.3-11.0 Blood erythrocytes automated count (number/volume) 3.36 10*6/uL 4.35-5.85 Venous blood hemoglobin measurement (mass/volume) 10.9 g/dL 11.5-16.0 Blood hematocrit (volume fraction) 31 % 35-52 Automated erythrocyte mean corpuscular volume 92 [ foz_us] 80-99 Automated erythrocyte mean corpuscular h emoglobin (mass per erythrocyte) 32 pg 25-34 Automated erythrocyte mean corpuscular h emoglobin concentration measurement (mass/volume) 35 g/dL 32-36 Automated erythrocyte distribution width ratio 12. 6 % 10.0- 14.5 Automated blood platelet count (count/volume) 185 10*3/uL 130-400 Automated blood platelet mean volume measurement 10.3 [foz_us] 7.4-10.4 Automated blood neutrophils/100 leukocytes 79 % 42-75 Automated blood lymphocytes/100 leukocytes 14 % 12-44 Blood monocytes/100 leukocytes 8 % 0-12 Automated blood eosinophils/100 leukocytes 0 % 0-10 Automated blood basophils/100 leukocytes 0 % 0-10 Blood neutrophils automated count (number/volume) 12.0 10*3 1.8-7.8 Blood lymphocytes automated count (number/volume) 2.1 10*3 1.0-4.0 Blood monocytes automated count (number/volume) 1. 1 10*3 0.0-1.0 Automated eosinophil count 0.0 10*3/uL 0 .0-0.3 Automated blood basophil count (count/volume) 0.0 10*3/uL 0.0-0.1 CMP - 03/12/19 09:59 GLUCOSE 86 mg/dL 65-99 UREA NITROGEN (BUN) 10 mg/dL 7-25 CREATININE 0.74 mg/dL 0.50-0.99 eGFR NON-AFR. DANISH 87 mL/min/1.73m2 > OR = 60 eGFR 101 mL/min/1.73m2 > OR = 60 BUN/CREATININE RATIO NOT APPLICABLE (calc) 6-22 SODIUM 130 mmol/L 135-146 POTASSIUM 4.5 mmol/L 3.5-5.3 CHLORIDE 93 mmol/L 98-110 CARBON DIOXIDE 30 mmol/L 20-32 CALCIUM 9.3 mg/dL 8.6-10.4 PROTEIN, TOTAL 6.6 g/dL 6.1-8.1 ALBUMIN 3.9 g/dL 3.6-5.1 GLOBULIN 2.7 g/dL (calc) 1.9-3.7 ALBUMIN/GLOBULIN RATIO 1.4 (calc) 1.0-2. 5 BILIRUBIN, TOTAL 0.4 mg/dL 0.2-1.2 ALKALINE PHOSPHATASE 94 U/L 33-130 AST 13 U/L 10-35 ALT 13 U/L 6-29 TSH - 03/12/19 09:59 TSH 1.28 mIU/L 0.40-4.50 VALPROIC ACID/DEPAKOTE - 03/12/19 09:59 VALPROIC ACID 77.2 mg/L 50.0-100.0 Complete blood count (CBC) with automate d white blood cell (WBC) differential - 05/24/19 09:23 Blood leukocytes automated count (number/volume) 7.2 10*3/uL 4.3-11.0 Blood erythrocytes automated count (number/volume) 4.02 10*6/uL 4.35-5.85 Venous blood hemoglobin measurement (mass/volume) 12.6 g/dL 11.5-16.0 Blood hematocrit (volume fraction) 37 % 35-52 Automated erythrocyte mean corpuscular volume 91 [ foz_us] 80-99 Automated erythrocyte mean corpuscular h emoglobin (mass per erythrocyte) 31 pg 25-34 Automated erythrocyte mean corpuscular h emoglobin concentration measurement (mass/volume) 34 g/dL 32-36 Automated erythrocyte distribution width ratio 12. 2 % 10.0- 14.5 Automated blood platelet count (count/volume) 320 10*3/uL 130-400 Automated blood platelet mean volume measurement 9.9 [foz_us] 7.4-10.4 Automated blood neutrophils/100 leukocytes 46 % 42-75 Automated blood lymphocytes/100 leukocytes 39 % 12-44 Blood monocytes/100 leukocytes 13 % 0-12 Automated blood eosinophils/100 leukocytes 2 % 0-10 Automated blood basophils/100 leukocytes 1 % 0-10 Blood neutrophils automated count (number/volume) 3.3 10*3 1.8-7.8 Blood lymphocytes automated count (number/volume) 2.8 10*3 1.0-4.0 Blood monocytes automated count (number/volume) 0. 9 10*3 0.0-1.0 Automated eosinophil count 0.2 10*3/uL 0 .0-0.3 Automated blood basophil count (count/volume) 0.0 10*3/uL 0.0-0.1 Comprehensive metabolic panel - 05/24/19 09:23 Serum or plasma sodium measurement (moles/volume) 128 mmol/L 135-145 Serum or plasma potassium measurement (moles/volume) 4.3 mmol/L 3.6-5.0 Serum or plasma chloride measurement (moles/volume) 91 mmol/L 98-107 Carbon dioxide 24 mmol/L 21-32 Serum or plasma anion gap determination (moles/volume) 13 mmol/L 5-14 Serum or plasma urea nitrogen measurement (mass/volume ) 9 mg/dL 7-18 Serum or plasma creatinine measurement (mass/volume) 0.68 mg/dL 0.60-1.30 Serum or plasma urea nitrogen/creatinine mass ratio 13 NRG Serum or plasma creatinine measurement w ith calculation of estimated glomerular filtration rate > NRG Serum or plasma glucose measurement (mass/volume) 87 mg/dL 70-105 Serum or plasma calcium measurement (mass/volume) 8.9 mg/dL 8.5-10.1 Serum or plasma total bilirubin measurement (mass/volu me) 0.4 mg/dL 0.1-1.0 Serum or plasma alkaline phosphatase shakira surement (enzymatic activity/volume) 106 U/L 40-136 Serum or plasma aspartate aminotransfera se measurement (enzymatic activity/volume) 19 U/L 5-34 Serum or plasma alanine aminotransferase measurement (enzymatic activity/volume) 12 U/L 0-55 Serum or plasma protein measurement (mass/volume) 6.2 g/dL 6.4-8.2 Serum or plasma albumin measurement (mass/volume) 3.6 g/dL 3.2-4.5 CALCIUM CORRECTED 9.2 mg/dL 8.5-10.1 Whole blood basic metabolic panel - 02/03 04:32 Serum or plasma sodium measurement (moles/volume) 130 mmol/L 135-145 Serum or plasma potassium measurement (moles/volume) 4.7 mmol/L 3.6-5.0 Serum or plasma chloride measurement (moles/volume) 97 mmol/L 98-107 Carbon dioxide 23 mmol/L 21-32 Serum or plasma anion gap determination (moles/volume) 10 mmol/L 5-14 Serum or plasma urea nitrogen measurement (mass/volume ) 10 mg/dL 7-18 Serum or plasma creatinine measurement (mass/volume) 0.65 mg/dL 0.60-1.30 Serum or plasma urea nitrogen/creatinine mass ratio 15 NRG Serum or plasma creatinine measurement w ith calculation of estimated glomerular filtration rate > NRG Serum or plasma glucose measurement (mass/volume) 135 mg/dL 70-105 Serum or plasma calcium measurement (mass/volume) 8.7 mg/dL 8.5-10.1 Complete blood count (CBC) with automate d white blood cell (WBC) differential - 05/26/19 05:15 Blood leukocytes automated count (number/volume) 11.6 10*3/uL 4.3-11.0 Blood erythrocytes automated count (number/volume) 3.99 10*6/uL 4.35-5.85 Venous blood hemoglobin measurement (mass/volume) 12.3 g/dL 11.5-16.0 Blood hematocrit (volume fraction) 37 % 35-52 Automated erythrocyte mean corpuscular volume 93 [ foz_us] 80-99 Automated erythrocyte mean corpuscular h emoglobin (mass per erythrocyte) 31 pg 25-34 Automated erythrocyte mean corpuscular h emoglobin concentration measurement (mass/volume) 33 g/dL 32-36 Automated erythrocyte distribution width ratio 12. 3 % 10.0- 14.5 Automated blood platelet count (count/volume) 356 10*3/uL 130-400 Automated blood platelet mean volume measurement 10.4 [foz_us] 7.4-10.4 Automated blood neutrophils/100 leukocytes 54 % 42-75 Automated blood lymphocytes/100 leukocytes 34 % 12-44 Blood monocytes/100 leukocytes 12 % 0-12 Automated blood eosinophils/100 leukocytes 0 % 0-10 Automated blood basophils/100 leukocytes 0 % 0-10 Blood neutrophils automated count (number/volume) 6.2 10*3 1.8-7.8 Blood lymphocytes automated count (number/volume) 3.9 10*3 1.0-4.0 Blood monocytes automated count (number/volume) 1. 4 10*3 0.0-1.0 Automated eosinophil count 0.0 10*3/uL 0 .0-0.3 Automated blood basophil count (count/volume) 0.0 10*3/uL 0.0-0.1 Comprehensive metabolic panel - 05/26/19 05:15 Serum or plasma sodium measurement (moles/volume) 139 mmol/L 135-145 Serum or plasma potassium measurement (moles/volume) 4.1 mmol/L 3.6-5.0 Serum or plasma chloride measurement (moles/volume) 103 mmol/L 98-107 Carbon dioxide 25 mmol/L 21-32 Serum or plasma anion gap determination (moles/volume) 11 mmol/L 5-14 Serum or plasma urea nitrogen measurement (mass/volume ) 10 mg/dL 7-18 Serum or plasma creatinine measurement (mass/volume) 0.67 mg/dL 0.60-1.30 Serum or plasma urea nitrogen/creatinine mass ratio 15 NRG Serum or plasma creatinine measurement w ith calculation of estimated glomerular filtration rate > NRG Serum or plasma glucose measurement (mass/volume) 82 mg/dL 70-105 Serum or plasma calcium measurement (mass/volume) 8.8 mg/dL 8.5-10.1 Serum or plasma total bilirubin measurement (mass/volu me) 0.3 mg/dL 0.1-1.0 Serum or plasma alkaline phosphatase shakira surement (enzymatic activity/volume) 97 U/L 40-136 Serum or plasma aspartate aminotransfera se measurement (enzymatic activity/volume) 13 U/L 5-34 Serum or plasma alanine aminotransferase measurement (enzymatic activity/volume) 9 U/L 0-55 Serum or plasma protein measurement (mass/volume) 6.1 g/dL 6.4-8.2 Serum or plasma albumin measurement (mass/volume) 3.6 g/dL 3.2-4.5 CALCIUM CORRECTED 9.1 mg/dL 8.5-10.1 Complete blood count (CBC) with automate d white blood cell (WBC) differential - 05/27/19 06:13 Blood leukocytes automated count (number/volume) 9.4 10*3/uL 4.3-11.0 Blood erythrocytes automated count (number/volume) 4.03 10*6/uL 4.35-5.85 Venous blood hemoglobin measurement (mass/volume) 12.9 g/dL 11.5-16.0 Blood hematocrit (volume fraction) 38 % 35-52 Automated erythrocyte mean corpuscular volume 95 [ foz_us] 80-99 Automated erythrocyte mean corpuscular h emoglobin (mass per erythrocyte) 32 pg 25-34 Automated erythrocyte mean corpuscular h emoglobin concentration measurement (mass/volume) 34 g/dL 32-36 Automated erythrocyte distribution width ratio 12. 5 % 10.0- 14.5 Automated blood platelet count (count/volume) 337 10*3/uL 130-400 Automated blood platelet mean volume measurement 10.3 [foz_us] 7.4-10.4 Automated blood neutrophils/100 leukocytes 41 % 42-75 Automated blood lymphocytes/100 leukocytes 45 % 12-44 Blood monocytes/100 leukocytes 13 % 0-12 Automated blood eosinophils/100 leukocytes 1 % 0-10 Automated blood basophils/100 leukocytes 1 % 0-10 Blood neutrophils automated count (number/volume) 3.9 10*3 1.8-7.8 Blood lymphocytes automated count (number/volume) 4.2 10*3 1.0-4.0 Blood monocytes automated count (number/volume) 1. 3 10*3 0.0-1.0 Automated eosinophil count 0.1 10*3/uL 0 .0-0.3 Automated blood basophil count (count/volume) 0.1 10*3/uL 0.0-0.1 Blood blood smear finding identification by light micr oscopy YES NR Whole blood basic metabolic panel - 05/18 06:13 Serum or plasma sodium measurement (moles/volume) 137 mmol/L 135-145 Serum or plasma potassium measurement (moles/volume) 4.1 mmol/L 3.6-5.0 Serum or plasma chloride measurement (moles/volume) 102 mmol/L 98-107 Carbon dioxide 23 mmol/L 21-32 Serum or plasma anion gap determination (moles/volume) 12 mmol/L 5-14 Serum or plasma urea nitrogen measurement (mass/volume ) 10 mg/dL 7-18 Serum or plasma creatinine measurement (mass/volume) 0.64 mg/dL 0.60-1.30 Serum or plasma urea nitrogen/creatinine mass ratio 16 NRG Serum or plasma creatinine measurement w ith calculation of estimated glomerular filtration rate > NRG Serum or plasma glucose measurement (mass/volume) 96 mg/dL 70-105 Serum or plasma calcium measurement (mass/volume) 8.8 mg/dL 8.5-10.1 Complete blood count (CBC) with automate d white blood cell (WBC) differential - 05/29/19 07:07 Blood leukocytes automated count (number/volume) 10.6 10*3/uL 4.3-11.0 Blood erythrocytes automated count (number/volume) 4.83 10*6/uL 4.35-5.85 Venous blood hemoglobin measurement (mass/volume) 15.0 g/dL 11.5-16.0 Blood hematocrit (volume fraction) 44 % 35-52 Automated erythrocyte mean corpuscular volume 92 [ foz_us] 80-99 Automated erythrocyte mean corpuscular h emoglobin (mass per erythrocyte) 31 pg 25-34 Automated erythrocyte mean corpuscular h emoglobin concentration measurement (mass/volume) 34 g/dL 32-36 Automated erythrocyte distribution width ratio 12. 4 % 10.0- 14.5 Automated blood platelet count (count/volume) 397 10*3/uL 130-400 Automated blood platelet mean volume measurement 10.0 [foz_us] 7.4-10.4 Automated blood neutrophils/100 leukocytes 57 % 42-75 Automated blood lymphocytes/100 leukocytes 30 % 12-44 Blood monocytes/100 leukocytes 13 % 0-12 Automated blood eosinophils/100 leukocytes 0 % 0-10 Automated blood basophils/100 leukocytes 0 % 0-10 Blood neutrophils automated count (number/volume) 6.0 10*3 1.8-7.8 Blood lymphocytes automated count (number/volume) 3.2 10*3 1.0-4.0 Blood monocytes automated count (number/volume) 1. 4 10*3 0.0-1.0 Automated eosinophil count 0.0 10*3/uL 0 .0-0.3 Automated blood basophil count (count/volume) 0.0 10*3/uL 0.0-0.1 Comprehensive metabolic panel - 05/29/19 07:07 Serum or plasma sodium measurement (moles/volume) 136 mmol/L 135-145 Serum or plasma potassium measurement (moles/volume) 4.0 mmol/L 3.6-5.0 Serum or plasma chloride measurement (moles/volume) 97 mmol/L 98-107 Carbon dioxide 24 mmol/L 21-32 Serum or plasma anion gap determination (moles/volume) 15 mmol/L 5-14 Serum or plasma urea nitrogen measurement (mass/volume ) 13 mg/dL 7-18 Serum or plasma creatinine measurement (mass/volume) 0.76 mg/dL 0.60-1.30 Serum or plasma urea nitrogen/creatinine mass ratio 17 NRG Serum or plasma creatinine measurement w ith calculation of estimated glomerular filtration rate > NRG Serum or plasma glucose measurement (mass/volume) 107 mg/dL 70-105 Serum or plasma calcium measurement (mass/volume) 10.0 mg/dL 8.5-10.1 Serum or plasma total bilirubin measurement (mass/volu me) 0.5 mg/dL 0.1-1.0 Serum or plasma alkaline phosphatase shakira surement (enzymatic activity/volume) 140 U/L 40-136 Serum or plasma aspartate aminotransfera se measurement (enzymatic activity/volume) 18 U/L 5-34 Serum or plasma alanine aminotransferase measurement (enzymatic activity/volume) 17 U/L 0-55 Serum or plasma protein measurement (mass/volume) 7.7 g/dL 6.4-8.2 Serum or plasma albumin measurement (mass/volume) 4.3 g/dL 3.2-4.5 CALCIUM CORRECTED 9.8 mg/dL 8.5-10.1 Lipase - 05/29/19 07:07 Lipase 14 U/L 8-78 Encounters ACCT No. Visit Date/Time Discharge Status Pt. Type Provider Facility Loc./Unit Complaint [id number] 09/26/2018 10:00:00 09/26/2018 23:59: 00 DIS Outpatient MIGUEL BORJA [id number] 02/05/2018 14:19:00 02/05/2018 23:59: 00 DIS Outpatient MIGUEL BORJA [id number] 08/02/2017 09:32:00 08/02/2017 23:59: 00 DIS Outpatient MIGUEL BORJA [id number] 06/04/2019 13:20:00 06/04/2019 23:59:5 9 [facility] Outpatient NAHOMY HANCOCK APRN [facility] [place] [id number] 03/12/2019 09:20:00 Document Registration [id number] 12/31/2017 10:20:00 Document Registration [id number] 12/31/2017 08:00:00 Document Registration [id number] 05/27/2017 13:00:00 Document Registration [id number] 04/24/2017 08:25:00 Document Registration [id number] 10/12/2014 09:32:00 10/12/2014 23:59: 59 CLS Outpatient NAHOMY HANCOCK APRN S [id number] 09/16/2014 10:09:00 09/16/2014 23:59: 59 CLS Outpatient NAHOMY HANCOCK APRN S [id number] 09/02/2014 11:44:00 09/02/2014 23:59: 59 CLS Outpatient NAHOMY HANCOCK APRN S [id number] 06/26/2014 07:54:00 06/26/2014 23:59: 59 CLS Outpatient ORLY ELAM DPM [id number] 06/16/2014 08:41:00 06/16/2014 23:59: 59 CLS Outpatient KARISSA BRIZUELANNAHOMY S [id number] 06/05/2014 08:41:00 06/05/2014 23:59: 59 CLS Outpatient ORLY ELAM DPM [id number] 05/08/2014 10:12:00 05/08/2014 23:59: 59 CLS Outpatient DAVEY STEPHENSON MD [id number] 04/15/2014 14:18:00 04/15/2014 23:59: 59 CLS Outpatient KATELYN HENRIQUEZ APRN [id number] 03/24/2014 08:26:00 03/24/2014 23:59: 59 CLS Outpatient KARISSA BRIZUELANNAHOMY Jaida [id number] 03/16/2014 15:51:00 03/16/2014 23:59: 59 CLS Outpatient MONICA TORI MARISABEL A [id number] 03/09/2014 12:20:00 03/09/2014 23:59: 59 CLS Outpatient EVAN CANO MD [id number] 01/29/2014 00:00:00 01/29/2014 23:59: 59 CLS Outpatient KARISSA BRIZUELANNAHOMY Jaida [id number] 12/16/2013 11:29:00 12/16/2013 23:59: 59 CLS Outpatient EVAN CANO MD [id number] 10/07/2013 16:01:00 10/07/2013 23:59: 59 CLS Outpatient KTAELYN HENRIQUEZ APRN [id number] 09/16/2013 10:22:00 09/16/2013 23:59: 59 CLS Outpatient DAVEY STEPHENSON MD [id number] 05/20/2013 16:31:00 05/20/2013 23:59: 59 CLS Outpatient DAVEY STEPHENSON MD [id number] 05/16/2013 11:59:00 05/16/2013 23:59: 59 CLS Outpatient ROEL LOWERY APRN [id number] 04/18/2013 08:30:00 04/18/2013 23:59: 59 CLS Outpatient DAVEY STEPHENSON MD [id number] 06/04/2012 17:25:00 06/04/2012 23:59: 59 CLS Outpatient [id number] 06/01/2012 14:15:00 06/01/2012 23:59: 59 CLS Outpatient [id number] 05/30/2012 13:22:00 05/30/2012 23:59: 59 CLS Outpatient [id number] 04/24/2012 08:23:00 04/24/2012 23:59:5 9 CLS Outpatient SHITAL OLEG AGUILA Shon [id number] 05/29/2019 06:50:00 08:43:00 DIS Emergency TAMIKO MILLER DO Via [facility] ER VOMITING,POSS FEVER [id number] 05/23/2019 18:14:00 14:09:00 DIS Inpatient GABRIEL VIRGEN DO, V ia [facility] 4TH L1 VERTBRAE FX W INTRAC TABLE PAIN [id number] 11/13/2018 09:58:00 23:59:59 CLS Outpatient NAHOMY HANCOCK [facility] RAD ENCOUNTER FOR SCREENIN G FOR LUNG CANCER [id number] 10/29/2018 09:01:00 23:59:59 CLS Outpatient NAHOMY HANCOCK [facility] RAD SCREENING [id number] 10/07/2018 10:48:00 23:59:59 CLS Preadmit NAHOMY HANCOCK [facility] RAD POST MENOPAUSAL SYNDROM E [id number] 03/26/2018 06:50:00 11:43:00 DIS Inpatient COLIN ALEXANDRA MD [facility] WS CYSTOCELE, INCONTENENCE [id number] 03/18/2018 05:47:00 13:39:00 DIS Outpatient COLIN ALEXANDRA MD [facility] PREOP CYSTOCELE [id number] 01/09/2018 14:30:00 018 23:59:59 CLS Preadmit SARAH NG MD [facility] REHAB MID BACK PAIN; CHRONIC BILATERAL LBP [id number] 10/11/2017 08:13:00 018 23:59:59 CLS Outpatient SARAH NG MD [facility] RAD LUMBAR RADICULOPATHY [id number] 09/13/2017 09:51:00 018 10:19:00 DIS Outpatient NAHOMY HANCOCK [facility] REHAB LBP W [place] LEFT SI DE [id number] 08/26/2017 07:16:00 018 10:35:00 DIS Emergency HARITHA HOLLIDAY, YOSI Menendez [facility] ER BLOOD IN URINE [id number] 02/20/2017 12:32:00 017 23:59:59 CLS Outpatient NAHOMY HANCOCK [facility] RAD Z12.31 [id number] 12/01/2016 08:45:00 017 13:06:00 DIS Emergency RANI DIEGO MD [facility] ER UTI/POSS INFECTION [id number] 11/25/2016 13:50:00 017 18:08:00 DIS Emergency GREG SNOW [facility] ER UNABLE TO URINATE [id number] 11/19/2016 15:57:00 017 23:59:59 CLS Outpatient RAEANN THOMAS [facility] LAB ACUTE CYSTITIS WITH HEMATURIA [id number] 11/03/2016 05:34:00 017 23:59:59 CLS Outpatient CAIT HOLLIDAY, ADRIAN Oconnor [facility] PREOP COLONOSCOPY [id number] 10/27/2016 13:20:00 017 15:20:00 DIS Outpatient SARAH NG MD [facility] REHAB CERVICAL STENOSIS [id number] 10/24/2016 13:39:00 017 00:01:00 DIS Outpatient SARAH NG MD [facility] REHAB CERVICAL STENOSIS [id number] 10/23/2016 07:30:00 017 23:59:59 CLS Preadmit CAIT HOLLIDAY, ADRIAN Oconnor [facility] ENDO HISTORY OF POLYPS [id number] 10/23/2016 13:19:00 017 15:48:00 DIS Emergency KATELYN SHIRLEY DO [facility] ER LEFT ARM/LIPS NUMB [id number] 09/27/2016 09:35:00 017 23:59:59 CLS Outpatient MIGUEL BORJA MD [facility] RAD M47.6 [id number] 09/20/2016 08:59:00 23:59:59 CLS Outpatient MIGUEL BORJA MD [facility] RAD R27.0,M47 [id number] 05/18/2016 13:08:00 016 23:59:59 CLS Outpatient NAHOMY HANCOCK [facility] RAD ABD PAIN, UNSPECIFIED LOCATION [id number] 04/25/2016 08:05:00 016 09:18:00 DIS Emergency ANDREW HOLLIDAY, THO Villarreal [facility] ER UTI SYMPTOMS [id number] 04/24/2016 09:08:00 13:34:00 DIS Emergency DEMETRIUS RUBIO APRN [facility] ER BLOOD/CLOTS IN URINE [id number] 01/20/2016 10:54:00 23:59:59 CLS Outpatient KYLE CHAVEZ DO [facility] RAD ROUTINE [id number] 11/05/2015 00:08:00 016 23:59:59 CLS Preadmit YULIANA KEY MD [facility] ONC [id number] 10/27/2015 14:13:00 016 00:01:00 DIS Outpatient YULIANA KEY MD [facility] ONC [id number] 05/23/2015 16:09:00 015 21:54:00 DIS Emergency QI MACHUCA [facility] ER BLADDER PROBLEMS [id number] 05/19/2015 10:40:00 11:05:00 DIS Inpatient KYLE CHAVEZ DO [facility] LDRP RECCURENT PELVIC PROLAP SE [id number] 05/05/2015 11:39:00 23:59:59 CLS Outpatient KYLE CHAVEZ DO [facility] PREOP INTERIOR COLPORHAPHY [id number] 04/29/2015 08:45:00 015 13:40:00 DIS Outpatient ANDREY HOOKER MD [facility] REHAB NECK PAIN [id number] 03/16/2015 09:12:00 015 00:01:00 DIS Outpatient ANDREY HOOKER MD [facility] REHAB NECK PAIN [id number] 01/22/2015 07:34:00 015 23:59:59 CLS Preadmit TEJA HOLLIDAY, BRUCE E DEBILITY [id number] 01/21/2015 18:00:00 015 14:37:00 DIS Inpatient TEE KHANNA DO Via [facility] SURGICAL CERVICAL STENOSIS,DEBILITY,UNSTABLE [id number] 12/31/2014 16:09:00 015 23:59:59 CLS Outpatient KYLE CHAVEZ DO [facility] RAD SCREENING [id number] 09/07/2014 08:25:00 015 00:01:00 DIS Outpatient SUE GARCIA [facility] ONC [id number] 10/20/2014 17:41:00 015 22:59:00 DIS Emergency LUKE PROSPER AGUILA [facility] ER HYPERVENTILATING [id number] 10/17/2014 11:15:00 015 13:17:00 DIS Emergency BENITO KLEIN MD Via [facility] ER UTI [id number] 08/18/2014 05:02:00 015 06:07:00 DIS Emergency PROSPER BUTLER DO [facility] ER SOA [id number] 05/05/2014 11:45:00 014 23:59:59 CLS Outpatient JOSIAS GUERRERO [facility] RAD 6 MONTH FOLLOW UP [id number] 01/28/2014 21:50:00 014 13:45:00 DIS Inpatient EVAN CANO MD [facility] ICU DRUG OVERDOSE;SUICIDE ATTEMPT;DEPRESSION/ANXIETY [id number] 10/24/2013 08:07:00 014 23:59:59 CLS Outpatient JOSIAS GUERRERO [facility] RAD ABNORMAL MAMMO [id number] 10/06/2013 10:09:00 014 23:59:59 CLS Outpatient JOSIAS GUERREROP [facility] RAD SCREENING [id number] 10/14/2012 09:04:00 013 23:59:59 CLS Outpatient JOSIAS GUERRERO [employer] [facility] MOBVAN ROUTINE [id number] 07/08/2015 09:47:00 Document Registration [id number] 08/25/2014 16:50:00 Document Registration [id number] 08/17/2014 15:45:00 Document Registration [id number] 08/12/2014 06:37:00 Document Registration [id number] 08/11/2014 02:46:00 Document Registration [id number] 08/10/2014 11:42:00 Document Registration [id number] 09/21/2012 11:05:00 Document Registration [id number] 09/12/2012 08:21:00 Document Registration [id number] 08/06/2012 11:59:00 Document Registration [id number] 05/05/2012 11:46:00 Document Registration [id number] 03/03/2012 15:04:00 Document Registration [id number] 02/20/2012 05:37:00 Document Registration [id number] 02/16/2012 11:40:00 Document Registration [id number] 02/15/2012 20:17:00 Document Registration [id number] 02/13/2012 20:20:00 Document Registration [id number] 02/07/2012 01:30:00 Document Registration [id number] 02/05/2012 19:28:00 Document Registration [id number] 02/01/2012 20:10:00 Document Registration [id number] 09/05/2011 08:18:00 Document Registration [id number] 02/28/2011 12:53:00 Document Registration [id number] 02/10/2011 08:26:00 Document Registration [id number] 01/19/2011 10:03:00 Document Registration [id number] 01/06/2011 09:15:00 Document Registration
== END 2019-05-27 14:09 | disposition home health service (06) | DRG 552 ==
LOC: EDUNIT# 14:54 → ER 14:54 → 4TH 18:14
PROVIDERS: ADMIT Internal Medicine; ATTEND Internal Medicine
DX: S32.019A Unspecified fracture of first lumbar vertebra, initial encounter for closed fracture (principal); S42.214A Unspecified nondisplaced fracture of surgical neck of right humerus, initial encounter for closed fracture; L27.0 Generalized skin eruption due to drugs and medicaments taken internally; T40.605A Adverse effect of unspecified narcotics, initial encounter; E87.1 Hypo-osmolality and hyponatremia; F33.1 Major depressive disorder, recurrent, moderate; F17.210 Nicotine dependence, cigarettes, uncomplicated; G89.29 Other chronic pain; R39.15 Urgency of urination; I10 Essential (primary) hypertension; G43.909 Migraine, unspecified, not intractable, without status migrainosus; R42 Dizziness and giddiness; K21.9 Gastro-esophageal reflux disease without esophagitis; K58.9 Irritable bowel syndrome, unspecified; M19.91 Primary osteoarthritis, unspecified site; M79.7 Fibromyalgia; F41.9 Anxiety disorder, unspecified; J30.2 Other seasonal allergic rhinitis; W19.XXXA Unspecified fall, initial encounter; Z88.5 Allergy status to narcotic agent
CPT/HCPCS: 36415; 51701; 51702; 72131; 80048; 80053; 85025; 96374; 96375

== ENCOUNTER 2019-05-29 06:49 | Emergency (ER) | payer MEDICARE, MEDICAID ==
[~2019-05-29] VITALS: Ht 162.5 cm; Wt 72.5 kg
[~2019-05-29 06:49] MED LIST changes: +BUPR300T43 PO; +C,E,1CAP PO; +CALC600T12 PO; +CHOL3000 PO; +DCCL10A2 PO; +DICY20TA10 PO; +DIVA500T15 PO; +L.AC1CAP6 PO; +MOME17SP9 NSEACH; +MULT-878 PO; +OXYB10TA PO; -OXYB10TA2 PO; +PANT40TA3 PO; +SIME125T PO; -TRM50T PO
[2019-05-29] MEDS ORDERED: NS IV 1000 ML 1,000 ML IV STA (07:05)
--- NOTE | 2019-05-29 07:05 | ED GI ---
General Stated Complaint: VOMITING,POSS FEVER Source of Information: Patient Exam Limitations: No Limitations History of Present Illness Date Seen by Provider: May 29, 2019 Time Seen by Provider: 07:01 Initial Comments 63-year-old female presents with nausea, vomiting and maybe a fever. Patient was recently discharged from the hospital after being in for pain control following a fall with a lumbar fracture right humerus fracture dislocation. Patient reports shortly after getting home she started vomiting. Patient reports that for 2 days she's been vomiting and feels like she can't keep anything down. She possibly may have a fever. She has no diarrhea at this time. She is some mild epigastric discomfort. She reports that she is belching a lot. No other systemic complaints at this time. Allergies and Home Medications Allergies Coded Allergies: iodine (Verified Allergy, Severe, HIVES, 05/24/19) morphine (Verified Allergy, Severe, HIVES, 05/24/19) hydrocodone (Verified Allergy, Intermediate, Itching, 05/24/19) oxycodone (Verified Allergy, Intermediate, Itching, 05/24/19) Home Medications Baclofen 20 Mg Tablet, 20 MG PO BID PRN for MUSCLE SPASMS, (Reported) Bupropion HCl 300 Mg Tab.er.24h, 300 MG PO DAILY, (Reported) C,E,Zinc,Copper 11/Omyjc8y/Lut 1 Each Capsule, 1 EACH PO DAILY, (Reported) Calcium Carbonate 600 Mg Tablet, 1,200 MG PO DAILY, (Reported) Cholecalciferol (Vitamin D3) 1,000 Unit Tablet, 3,000 UNIT PO DAILY, (Reported) Dicyclomine HCl 20 Mg Tablet, 20 MG PO TID, (Reported) Divalproex Sodium 500 Mg Tab.er.24h, 1,000 MG PO HS, (Reported) TAKES 2 (500MG) TABS AT BEDTIME Estradiol 2 Mg Tablet, 2 MG PO DAILY, (Reported) Estradiol 10 Mcg Tablet, 10 MCG VG MoFr, (Reported) Gabapentin 300 Mg Capsule, 300 MG PO BID, (Reported) Hydroxyzine HCl 10 Mg Tablet, 10 MG PO TID PRN for ANXIETY, (Reported) Ibuprofen 600 Mg Tablet, 600 MG PO Q6H PRN for PAIN-MILD, (Reported) L.acidoph & Paracasei,B.lactis 1 Each Capsule, 1 EACH PO DAILY, (Reported) Levocetirizine Dihydrochloride 5 Mg Tablet, 5 MG PO HS, (Reported) Levomilnacipran Hydrochloride 120 Mg Cap.sa.24h, 120 MG PO DAILY, (Reported) Mometasone Furoate 17 Gm [place].pump, 1 SPRAY NSEACH DAILY, (Reported) Multivitamins-Min/FA/Ginkgo 1 Each Tablet, 1 EACH PO DAILY, (Reported) Pantoprazole Sodium 40 Mg Tablet.dr, 40 MG PO DAILY, (Reported) Polyethylene Glycol 3350 17 Gm Powd.pack, 17 GM PO PRN, (Reported) Selenomethionine 200 Mcg Tablet, 200 MCG PO DAILY, (Reported) Simethicone 125 Mg Tab.chew, 125 MG PO PRN PRN for GAS, (Reported) Tramadol HCl 50 Mg Tablet, 50 MG PO Q6H PRN for PAIN-MILD (1-4), (Reported) Patient Home Medication List Home Medication List Reviewed: Yes Review of Systems Review of Systems Constitutional: see HPI; No chills EENTM: No Symptoms Reported Respiratory: Denies Cough, Denies Shortness of Air Cardiovascular: Denies Chest Pain, Denies Irregular Heart Rate Gastrointestinal: Denies Abdomen Distended, Denies Diarrhea; Nausea, Vomiting Genitourinary: No Symptoms Reported Musculoskeletal: see HPI Skin: no symptoms reported Psychiatric/Neurological: No Symptoms Reported Past Xtvxjfm-Lwefrr-Fqxziy Hx Past Med/Social Hx: Reviewed Nursing Past Med/Soc Hx Patient Social History Type Used: Cigarettes Recent Foreign Travel: No Contact w/Someone Who Travel: No Recent Hopitalizations: No Immunizations Up To Date Tetanus Booster (TDap): More than 5yrs PED Vaccines UTD: No Date of Pneumonia Vaccine: Apr 23, 2018 Date of Influenza Vaccine: Mar 19, 2019 Seasonal Allergies Seasonal Allergies: Yes Past Medical History Surgeries: Yes (neck fusion, bladder tie up, ovarian cystectomy, cystocele/rectocele ) Adenoidectomy, Appendectomy, Bladder Surgery, Eye Surgery, Gallbladder, Hysterectomy, Oophorectomy, Tonsillectomy Respiratory: No Cardiac: No Hypertension Neurological: Yes Headaches /Migraines, Vertigo Reproductive Disorders: No Female 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 Sexually Transmitted Disease: No HIV/AIDS: No Genitourinary: Yes (BLADDER SURGERY) Bladder Infection, UTI-Chronic Gastrointestinal: Yes Gastroesophageal Reflux, Diverticulosis, Polyps, Irritable Bowel Musculoskeletal: Yes (STENOSIS) Arthritis, Fibromyalgia Endocrine: No Cataract Loss of Vision: Bilateral Hearing Impairment: Denies Cancer: No Brain Psychosocial: Yes Anxiety, Bipolar, Depression Integumentary: No Blood Disorders: No Adverse Reaction/Blood Tranf: No (N/A) Family Medical History Alcoholism 19 FATHER Alzheimer's disease 19 MOTHER Arthritis 19 FATHER 19 MOTHER Cardiovascular disease 19 FATHER (massive heart attack) 19 MOTHER (Mitrial valve prolapse, Stroke Multi.) Cataracts G8 SISTER Completed stroke 19 MOTHER Deafness or hearing loss G8 SISTER Dementia 19 MOTHER Diabetes mellitus 19 MOTHER Fibrocystic disease of breast G8 SISTER Hypercholesterolemia 19 FATHER 19 MOTHER G8 BROTHER G8 SISTER G8 SISTER Osteoporosis G8 SISTER Seizure disorder 19 FATHER Severe allergy G8 BROTHER G8 SISTER Thyroid disease 19 MOTHER G8 BROTHER G8 SISTER G8 SISTER No Family History of: AIDS Abdominal aortic aneurysm Vitor's disease Aphasia Asthma Cancer of mouth Colon cancer Congenital disease Coronary thrombosis Cystic fibrosis Drug abuse Dysphasia Glaucoma Headache disorder Hypertension Infertility Kidney disease Not obtainable due to adoption Parkinson's disease Prostate cancer Psychosocial problem Respiratory disorder Tuberculosis No Pertinent Family Hx Physical Exam Vital Signs Vital Signs - First Documented 05/29/19 07:14 Temp 37.0 Pulse 98 Resp 20 B/P (MAP) 153/92 (112) Pulse Ox 97 O2 Delivery Room Air Capillary Refill : Height/Weight/BMI Height: 5'4.00" Weight: 165lbs. 0.0oz. 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 nml as tested, normal mood/affect, oriented x 3 Progress/Results/Core Measures Results/Orders Lab Results Laboratory Tests Test 05/29/19 07:07 Range/Units White Blood Count 10.6 4.3-11.0 10^3/uL Red Blood Count 4.83 4.35-5.85 10^6/uL Hemoglobin 15.0 11.5-16.0 G/DL Hematocrit 44 35-52 % Mean Corpuscular Volume 92 80-99 FL Mean Corpuscular Hemoglobin 31 25-34 PG Mean Corpuscular Hemoglobin Concent 34 32-36 G/DL Red Cell Distribution Width 12.4 10.0-14.5 % Platelet Count 397 130-400 10^3/uL Mean Platelet Volume 10.0 7.4-10.4 FL Neutrophils (%) (Auto) 57 42-75 % Lymphocytes (%) (Auto) 30 12-44 % Monocytes (%) (Auto) 13 H 0-12 % Eosinophils (%) (Auto) 0 0-10 % Basophils (%) (Auto) 0 0-10 % Neutrophils # (Auto) 6.0 1.8-7.8 X 10^3 Lymphocytes # (Auto) 3.2 1.0-4.0 X 10^3 Monocytes # (Auto) 1.4 H 0.0-1.0 X 10^3 Eosinophils # (Auto) 0.0 0.0-0.3 10^3/uL Basophils # (Auto) 0.0 0.0-0.1 10^3/uL Sodium Level 136 135-145 MMOL/L Potassium Level 4.0 3.6-5.0 MMOL/L Chloride Level 97 L 98-107 MMOL/L Carbon Dioxide Level 24 21-32 MMOL/L Anion Gap 15 H 5-14 MMOL/L Blood Urea Nitrogen 13 7-18 MG/DL Creatinine 0.76 0.60-1.30 MG/DL Estimat Glomerular Filtration Rate > 60 BUN/Creatinine Ratio 17 Glucose Level 107 H 70-105 MG/DL Calcium Level 10.0 8.5-10.1 MG/DL Corrected Calcium 9.8 8.5-10.1 MG/DL Total Bilirubin 0.5 0.1-1.0 MG/DL Aspartate Amino Transf (AST/SGOT) 18 5-34 U/L Alanine Aminotransferase (ALT/SGPT) 17 0-55 U/L Alkaline Phosphatase 140 H 40-136 U/L Total Protein 7.7 6.4-8.2 GM/DL Albumin 4.3 3.2-4.5 GM/DL Lipase 14 8-78 U/L My Orders Orders - MILLER,TAMIKO L DO Ondansetron Injection (Zofran Injectio (05/29/19 07:15) Ns Iv 1000 Ml (Sodium Chloride 0.9%) (05/29/19 07:05) Ed Iv/Invasive Line Start (05/29/19 07:05) Cbc With Automated Diff (05/29/19 07:05) Comprehensive Metabolic Panel (05/29/19 07:05) Lipase (05/29/19 07:05) Abdomen/Kub 1view (05/29/19 07:05) Lidocaine 2% Viscous 15 Ml (Xylocaine Vi (05/29/19 08:00) Antacid Suspension (Mylanta Suspension (05/29/19 08:00) Medications Given in ED Current Medications Medications Dose Ordered Sig/Jeff Route Start Time Stop Time Status Last Admin Dose Admin Ondansetron HCl 4 mg ONCE ONCE IVP 05/29/19 07:15 05/29/19 07:16 DC 05/29/19 07:21 4 MG Vital Signs/I&O 05/29/19 07:14 Temp 37.0 Pulse 98 Resp 20 B/P (MAP) 153/92 (112) Pulse Ox 97 O2 Delivery Room Air Departure Impression Primary Impression: Gastritis Qualified Codes: K29.70 - Gastritis, unspecified, without bleeding Additional Impression: GERD (gastroesophageal reflux disease) Qualified Codes: K21.9 - Gastro-esophageal reflux disease without esophagitis Disposition: 01 HOME, SELF-CARE Condition: Stable Departure-Patient Inst. [facility]: [facility] [place] Primary Care Physician NAHOMY HANCOCK (Family) Primary Care Physician Patient Instructions: Acid Reflux (Gastroesophageal Reflux Disease), Adult (DC), Gastritis Add. Discharge Instructions: Omeprazole 20 mg twice daily 1 week then daily. Emergency department focuses on treating and ruling out life-threatening diseases. Whenever possible, a diagnosis is given. However, most patients are given an impression based on their history, physical exam, and workup during your brief time in the ER. Information about probable diagnosis and other educational material has been provided. Please take the time to read and understand this information. It is very important that you follow up with a physician as discussed during the visit today. Failure to adhere to your follow-up instructions may lead to severe disability, injury, or so please make sure to keep your appointments or obtain one as requested. Please keep in mind the emergency department is not designed to your primary care or "family doctor" and nonurgent issues are best evaluated by an outpatient physician TAMIKO MILLER DO May 29, 2019 07:04 POS
[2019-05-29] MEDS ORDERED: ONDANSETRON 4 MG/2 ML (SDV) Z0FRAN IVP ONE (07:15)
[2019-05-29 07:21] LABS: BASOPHILS % (AUTO) 0 % (0-10); EOSINOPHILS % (AUTO) 0 % (0-10); HEMATOCRIT 44 % (35-52); LYMPHOCYTES # (AUTO) 3.2 X 10^3 (1.0-4.0); LYMPHOCYTES % (AUTO) 30 % (12-44); MEAN CORPUSCULAR HEMOGLOBIN 31 PG (25-34); MEAN CORPUSCULAR HGB CONC 34 G/DL (32-36); MEAN CORPUSCULAR VOLUME 92 FL (80-99); MONOCYTES # (AUTO) 1.4 X 10^3 (0.0-1.0); MONOCYTES % (AUTO) 13 % (0-12); NEUTROPHILS % (AUTO) 57 % (42-75); PLATELET COUNT 397 10^3/uL (130-400); RED CELL DISTRIBUTION WIDTH 12.4 % (10.0-14.5); WHITE BLOOD COUNT 10.6 10^3/uL (4.3-11.0)
[2019-05-29 07:44] LABS: ALANINE AMINOTRANSFERASE 17 U/L (0-55); ALBUMIN 4.3 GM/DL (3.2-4.5); ALKALINE PHOSPHATASE 140 U/L (40-136); BILIRUBIN,TOTAL 0.5 MG/DL (0.1-1.0); BUN/CREATININE RATIO 17; CARBON DIOXIDE 24 MMOL/L (21-32); CHLORIDE 97 MMOL/L (98-107); CREATININE SERUM 0.76 MG/DL (0.60-1.30); GFR ESTIMATED > 60; GLUCOSE 107 MG/DL (70-105); LIPASE 14 U/L (8-78); SODIUM 136 MMOL/L (135-145); TOTAL PROTEIN 7.7 GM/DL (6.4-8.2)
[2019-05-29] MEDS ORDERED: ANTACID SUSP 30 ML UDC (MYLANTA) PO ONE (08:00)
[2019-05-29] MEDS ORDERED: LIDOCAINE 2% VISCOUS 15 ML UDC PO ONE (08:00)
--- NOTE | 2019-05-29 08:05 | Diagnostic Imaging Report ---
INDICATION: Nausea and vomiting. COMPARISON: None available. FINDINGS: Cholecystectomy. Nonobstructive bowel gas pattern. A moderate amount of colonic stool is present. No features of free intraperitoneal air on limited supine imaging. Multifocal degenerative changes in the lower lumbar spine, SI joints and right hip. IMPRESSION: Nonobstructive bowel gas pattern and no features of free intraperitoneal air. Dictated by: Dictated on workstation # [id number]
[2019-05-29 08:43] VITALS: BP 145/90
== END 2019-05-29 08:43 | disposition home or self-care (01) ==
LOC: EDUNIT# 06:49 → ER 06:50
DX: K29.70 Gastritis, unspecified, without bleeding (principal); K21.9 Gastro-esophageal reflux disease without esophagitis; I10 Essential (primary) hypertension; G43.909 Migraine, unspecified, not intractable, without status migrainosus; K58.9 Irritable bowel syndrome, unspecified; M79.7 Fibromyalgia; F41.9 Anxiety disorder, unspecified; F31.9 Bipolar disorder, unspecified; Z88.8 Allergy status to other drugs, medicaments and biological substances; Z87.440 Personal history of urinary (tract) infections; Z88.5 Allergy status to narcotic agent; Z79.52 Long term (current) use of systemic steroids; Z79.51 Long term (current) use of inhaled steroids; Z90.89 Acquired absence of other organs; Z90.710 Acquired absence of both cervix and uterus; Z90.49 Acquired absence of other specified parts of digestive tract; Z82.49 Family history of ischemic heart disease and other diseases of the circulatory system
CPT/HCPCS: 36415; 74018; 80053; 83690; 85025; 96361; 96374

== ENCOUNTER → 2019-07-03 | Outpatient (CLI) | payer MEDICARE, MEDICAID ==
[~2019-07-03] MED LIST changes: -OXYB10TA PO; +OXYB10TA2 PO; +TRM50T PO
--- NOTE | 2019-07-03 16:14 | Diagnostic Imaging Report ---
PROCEDURE: CT right upper extremity without contrast. TECHNIQUE: Multiple contiguous axial images were obtained through the right upper extremity without the use of intravenous contrast. Sagittal and coronal reformations were then performed. Auto Exposure Controls were utilized during the CT exam to meet ALARA standards for radiation dose reduction. INDICATION: Three-part fracture of the right shoulder. COMPARISON: None. FINDINGS: There is diffuse osteopenia. There is a comminuted fracture of the greater tuberosity of the proximal right humerus, with displacement of the superior anterior aspect of the greater tuberosity into the acromiohumeral space. The lesser tuberosity appears intact. No fracture is seen across the surgical neck of the humerus. The glenohumeral alignment appears normal. There are [id number] degenerative changes in the acromioclavicular joint. No muscular atrophy is seen in the rotator cuff. There is a moderate right shoulder joint effusion. No lymphadenopathy is seen. No acute abnormality is seen in the imaged portions of the right lung. IMPRESSION: 1. Comminuted displaced fracture of the right humerus greater tuberosity. Dictated by: Dictated on workstation # [id number]
== END ==
LOC: RAD 15:25
PROVIDERS: ATTEND Nurse Practitioner Family
DX: S42.251A Displaced fracture of greater tuberosity of right humerus, initial encounter for closed fracture (principal); X58.XXXA Exposure to other specified factors, initial encounter
CPT/HCPCS: 73200

== ENCOUNTER 2019-10-14 10:00 | Outpatient (RCR) | payer MEDICARE, MEDICAID ==
[~2019-10-14 10:00] MED LIST changes: -MONT10TA24 PO; +MONT10TA26 PO; -OXYB10TA2 PO; +OXYB10TA29 PO
== END 2019-10-15 | disposition home or self-care (01) ==
PROVIDERS: ATTEND Nurse Practitioner Family
DX: S42.251A Displaced fracture of greater tuberosity of right humerus, initial encounter for closed fracture (principal); X58.XXXA Exposure to other specified factors, initial encounter

== ENCOUNTER → 2019-11-12 | Outpatient (CLI) | payer MEDICARE, MEDICAID ==
--- NOTE | 2019-11-12 13:12 | Diagnostic Imaging Report ---
INDICATION: Routine screening. COMPARISON: 10/29/2018 and 02/20/2017. TECHNIQUE: 2D and 3D bilateral screening mammography was performed with CAD. FINDINGS: Both breasts remain heterogeneously dense, limiting the sensitivity of mammography. There are benign calcifications in both breasts. No dominant mass or malignant appearing microcalcifications are seen. The axillae are unremarkable. IMPRESSION: No mammographic features suspicious for malignancy are identified. ACR BI-RADS Category 2: Benign findings. Result letter will be mailed to the patient. Note: At least 10% of breast cancer is not imaged by mammography. Dictated by: Dictated on workstation # [id number]
== END ==
LOC: RAD 10:44
PROVIDERS: ATTEND Family Medicine
DX: Z12.31 Encounter for screening mammogram for malignant neoplasm of breast (principal)
CPT/HCPCS: 77063; 77067

== ENCOUNTER 2019-11-13 11:41 | Outpatient (RCR) | payer MEDICARE, MEDICAID | END 2019-11-13 13:56 | disposition home or self-care (01) | PROVIDERS: ATTEND Nurse Practitioner Family | DX: S42.301D Unspecified fracture of shaft of humerus, right arm, subsequent encounter for fracture with routine healing (principal); W13.3XXD Fall through floor, subsequent encounter ==

== ENCOUNTER 2019-11-27 09:55 | Emergency (ER) | payer MEDICARE, MEDICAID ==
[~2019-11-27] VITALS: Ht 162.5 cm; Wt 68.4 kg
[2019-11-27 10:28] LABS: BILIRUBIN,URINE NEGATIVE (NEGATIVE); CLARITY,URINE CLEAR; COLOR,URINE YELLOW; GLUCOSE, URINE (UA) NEGATIVE (NEGATIVE); KETONES,URINE TRACE (NEGATIVE); LEUKOCYTE ESTERASE ,URINE 3+ (NEGATIVE); NITRITE,URINE NEGATIVE (NEGATIVE); PROTEIN,URINE 1+ (NEGATIVE)
[2019-11-27 10:57] LABS: BACTERIA,URINE NEGATIVE /HPF; RBC,URINE TNTC /HPF; WBC,URINE 25-50 /HPF
[2019-11-27] MEDS ORDERED: NS IV 1000 ML 1,000 ML IV SCH (11:39)
[2019-11-27] MEDS ORDERED: CIPROFLOXACIN IV 400MG/200ML 200 ML IV ONE (11:45)
--- NOTE | 2019-11-27 11:59 | ED GU-Female ---
General Chief Complaint: - Urinary Stated Complaint: UTI Nursing Triage Note: took amoxicillin for a sinus infection approx 1 month ago, had an epidural approx 2 weeks ago, woke up this morning with peeing blood and clots, PCP is not in office this week, took last dose of macrobid for a UTI Nursing Sepsis Screen: No Definite Risk History of Present Illness Date Seen by Provider: Nov 27, 2019 Time Seen by Provider: 11:10 Initial Comments 63 year old female presents for UTI, with blood noted in Urine. Has been on Macrobid since 11/20/19, finished last dose yesterday. Spoke to Samara Cormier APRN and culture grew Klebsiella, sensitive to Cipro. She denies fevers or cough. Took Ibuprofen 600 mg po at 0800 today for chronic back pain. Past UTI's have required IV antibiotics and follow up with Dr. Alexandra. Timing/Duration: week, getting worse Severity/Quality: moderate Location: suprapubic Radiation: none Activities at Onset: none Prior Genitourinary Problems: similar symptoms Associated Symptoms: denies symptoms; No abdominal pain, No lower back pain, No nausea/vomiting, No urinary frequency Allergies and Home Medications Allergies Coded Allergies: iodine (Verified Allergy, Severe, HIVES, 05/24/19) morphine (Verified Allergy, Severe, HIVES, 05/24/19) hydrocodone (Verified Allergy, Intermediate, Itching, 05/24/19) oxycodone (Verified Allergy, Intermediate, Itching, 05/24/19) Home Medications Baclofen 20 Mg Tablet, 20 MG PO BID PRN for MUSCLE SPASMS, (Reported) Bupropion HCl 300 Mg Tab.er.24h, 300 MG PO DAILY, (Reported) C,E,Zinc,Copper 11/Khlej3y/Lut 1 Each Capsule, 1 EACH PO DAILY, (Reported) Calcium Carbonate 600 Mg Tablet, 1,200 MG PO DAILY, (Reported) Cholecalciferol (Vitamin D3) 1,000 Unit Tablet, 3,000 UNIT PO DAILY, (Reported) Ciprofloxacin HCl 500 Mg Tablet, 500 MG PO BID Prescribed by: GREG SNOW on 11/27/19 1200 Dicyclomine HCl 20 Mg Tablet, 20 MG PO TID, (Reported) Divalproex Sodium 500 Mg Tab.er.24h, 1,000 MG PO HS, (Reported) TAKES 2 (500MG) TABS AT BEDTIME Estradiol 2 Mg Tablet, 2 MG PO DAILY, (Reported) Estradiol 10 Mcg Tablet, 10 MCG VG MoFr, (Reported) Gabapentin 300 Mg Capsule, 300 MG PO BID, (Reported) Hydroxyzine HCl 10 Mg Tablet, 10 MG PO TID PRN for ANXIETY, (Reported) Ibuprofen 600 Mg Tablet, 600 MG PO Q6H PRN for PAIN-MILD, (Reported) LImeracidoph & Paracasei,B.lactis 1 Each Capsule, 1 EACH PO DAILY, (Reported) Levocetirizine Dihydrochloride 5 Mg Tablet, 5 MG PO HS, (Reported) Levomilnacipran Hydrochloride 120 Mg Cap.sa.24h, 120 MG PO DAILY, (Reported) Mometasone Furoate 17 Gm [place].pump, 1 SPRAY NSEACH DAILY, (Reported) Multivitamins-Min/FA/Ginkgo 1 Each Tablet, 1 EACH PO DAILY, (Reported) Pantoprazole Sodium 40 Mg Tablet.dr, 40 MG PO DAILY, (Reported) Phenazopyridine HCl 100 Mg Tablet, 100 MG PO Q8H PRN for SPASMS Prescribed by: GREG SNOW on 11/27/19 1237 Polyethylene Glycol 3350 17 Gm Powd.pack, 17 GM PO PRN, (Reported) Selenomethionine 200 Mcg Tablet, 200 MCG PO DAILY, (Reported) Simethicone 125 Mg Tab.chew, 125 MG PO PRN PRN for GAS, (Reported) Tramadol HCl 50 Mg Tablet, 50 MG PO Q6H PRN for PAIN-MILD (1-4), (Reported) Patient Home Medication List Home Medication List Reviewed: Yes Review of Systems Review of Systems Constitutional: no symptoms reported, see HPI; No fever Genitourinary: see HPI, dysuria; denies flank pain; hematuria All Other Systemes Reviewed Negative Unless Noted: Yes Past Lkpfhql-Ubqizl-Wxeeiv Hx Past Med/Social Hx: Reviewed Nursing Past Med/Soc Hx Patient Social History Alcohol Use: Denies Use Recreational Drug Use: No Type Used: Cigarettes 2nd Hand Smoke Exposure: No Recent Foreign Travel: No Contact w/Someone Who Travel: No Recent Infectious Disease Expo: No Recent Hopitalizations: No Immunizations Up To Date Tetanus Booster (TDap): More than 5yrs PED Vaccines UTD: No Date of Pneumonia Vaccine: Apr 23, 2018 Date of Influenza Vaccine: Mar 19, 2019 Seasonal Allergies Seasonal Allergies: Yes Past Medical History Surgeries: Yes (neck fusion, bladder tie up, ovarian cystectomy, cystocele/rectocele ) Adenoidectomy, Appendectomy, Bladder Surgery, Eye Surgery, Gallbladder, Hysterectomy, Oophorectomy, Tonsillectomy Respiratory: No Cardiac: No Hypertension Neurological: Yes Headaches /Migraines, Vertigo Reproductive Disorders: No 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 Sexually Transmitted Disease: No HIV/AIDS: No Genitourinary: Yes (BLADDER SURGERY) Bladder Infection, UTI-Chronic Gastrointestinal: Yes Gastroesophageal Reflux, Diverticulosis, Polyps, Irritable Bowel Musculoskeletal: Yes (STENOSIS) Arthritis, Fibromyalgia Endocrine: No Cataract Loss of Vision: Bilateral Hearing Impairment: Denies Cancer: No Brain Psychosocial: Yes Anxiety, Bipolar, Depression Integumentary: No Blood Disorders: No Adverse Reaction/Blood Tranf: No (N/A) Family Medical History Alcoholism 19 FATHER Alzheimer's disease 19 MOTHER Arthritis 19 FATHER 19 MOTHER Cardiovascular disease 19 FATHER (massive heart attack) 19 MOTHER (Mitrial valve prolapse, Stroke Multi.) Cataracts G8 SISTER Completed stroke 19 MOTHER Deafness or hearing loss G8 SISTER Dementia 19 MOTHER Diabetes mellitus 19 MOTHER Fibrocystic disease of breast G8 SISTER Hypercholesterolemia 19 FATHER 19 MOTHER G8 BROTHER G8 SISTER G8 SISTER Osteoporosis G8 SISTER Seizure disorder 19 FATHER Severe allergy G8 BROTHER G8 SISTER Thyroid disease 19 MOTHER G8 BROTHER G8 SISTER G8 SISTER No Family History of: AIDS Abdominal aortic aneurysm Cherry's disease Aphasia Asthma Cancer of mouth Colon cancer Congenital disease Coronary thrombosis Cystic fibrosis Drug abuse Dysphasia Glaucoma Headache disorder Hypertension Infertility Kidney disease Not obtainable due to adoption Parkinson's disease Prostate cancer Psychosocial problem Respiratory disorder Tuberculosis No Pertinent Family Hx Physical Exam Vital Signs Vital Signs - First Documented 11/27/19 11/27/19 10:50 12:57 Temp 36.8 Pulse 92 Resp 18 B/P (MAP) 152/79 (103) Pulse Ox 98 O2 Delivery Room Air Capillary Refill : Less Than 3 Seconds Height, Weight, BMI Height: 5'4.00" Weight: 165lbs. 0.0oz. 74.182875no; 25.00 BMI Method:Stated General Appearance: WD/WN, no apparent distress HEENT: PERRL/EOMI, normal ENT inspection, TMs normal, pharynx normal Neck: non-tender, full range of motion, supple, normal inspection Cardiovascular: normal peripheral pulses, regular rate, rhythm, no edema Respiratory: chest non-tender, lungs clear, normal breath sounds Back: normal inspection, no CVA tenderness; No CVA tenderness (R), No CVA tenderness (L); decreased range of motion, vertebral tenderness (low back, chronic) Neurologic/Psychiatric: no motor/sensory deficits, alert, normal mood/affect, oriented x 3 Skin: normal color, warm/dry Focused Exam Lactate Level 11/27/19 11:55: Lactic Acid Level 1.94 Lactic Acid Level Laboratory Tests Test 11/27/19 11:55 Lactic Acid Level 1.94 MMOL/L (0.50-2.00) Progress/Results/Core Measures Suspected Sepsis Recent Fever Within 48 Hours: No Infection Criteria Present: Suspected New Infection New/Unexplained Altered Menta: No Sepsis Screen: No Definite Risk SIRS Temperature: Pulse: 92 Respiratory Rate: 18 Laboratory Tests 11/27/19 11:55: White Blood Count 13.4H Blood Pressure 152 /79 Mean: 103 11/27/19 11:55: Lactic Acid Level 1.94 Laboratory Tests 11/27/19 11:55: Creatinine 0.82, Platelet Count 300, Total Bilirubin 0.3 Results/Orders Lab Results Laboratory Tests Test 11/27/19 10:21 11/27/19 11:55 Range/Units Urine Color YELLOW Urine Clarity CLEAR Urine pH 7.0 5-9 Urine Specific [place] 1.015 L 1.016-1.022 Urine Protein 1+ H NEGATIVE Urine Glucose (UA) NEGATIVE NEGATIVE Urine Ketones TRACE H NEGATIVE Urine Nitrite NEGATIVE NEGATIVE Urine Bilirubin NEGATIVE NEGATIVE Urine Urobilinogen 0.2 < = 1.0 MG/DL Urine Leukocyte Esterase 3+ H NEGATIVE Urine RBC (Auto) 3+ H NEGATIVE Urine RBC TNTC H /HPF Urine WBC 25-50 H /HPF Urine Squamous Epithelial Cells NONE /HPF Urine Crystals NONE /LPF Urine Bacteria NEGATIVE /HPF Urine Casts NONE /LPF Urine Mucus NEGATIVE /LPF Urine Culture Indicated YES White Blood Count 13.4 H 4.3-11.0 10^3/uL Red Blood Count 4.29 L 4.35-5.85 10^6/uL Hemoglobin 13.3 11.5-16.0 G/DL Hematocrit 40 35-52 % Mean Corpuscular Volume 92 80-99 FL Mean Corpuscular Hemoglobin 31 25-34 PG Mean Corpuscular Hemoglobin Concent 34 32-36 G/DL Red Cell Distribution Width 12.5 10.0-14.5 % Platelet Count 300 130-400 10^3/uL Mean Platelet Volume 10.3 7.4-10.4 FL Neutrophils (%) (Auto) 71 42-75 % Lymphocytes (%) (Auto) 23 12-44 % Monocytes (%) (Auto) 6 0-12 % Eosinophils (%) (Auto) 0 0-10 % Basophils (%) (Auto) 0 0-10 % Neutrophils # (Auto) 9.5 H 1.8-7.8 X 10^3 Lymphocytes # (Auto) 3.1 1.0-4.0 X 10^3 Monocytes # (Auto) 0.8 0.0-1.0 X 10^3 Eosinophils # (Auto) 0.0 0.0-0.3 10^3/uL Basophils # (Auto) 0.0 0.0-0.1 10^3/uL Sodium Level 130 L 135-145 MMOL/L Potassium Level 4.3 3.6-5.0 MMOL/L Chloride Level 94 L 98-107 MMOL/L Carbon Dioxide Level 26 21-32 MMOL/L Anion Gap 10 5-14 MMOL/L Blood Urea Nitrogen 10 7-18 MG/DL Creatinine 0.82 0.60-1.30 MG/DL Estimat Glomerular Filtration Rate > 60 BUN/Creatinine Ratio 12 Glucose Level 130 H 70-105 MG/DL Lactic Acid Level 1.94 0.50-2.00 MMOL/L Calcium Level 8.8 8.5-10.1 MG/DL Corrected Calcium 8.8 8.5-10.1 MG/DL Total Bilirubin 0.3 0.1-1.0 MG/DL Aspartate Amino Transf (AST/SGOT) 18 5-34 U/L Alanine Aminotransferase (ALT/SGPT) 14 0-55 U/L Alkaline Phosphatase 110 40-136 U/L Total Protein 6.8 6.4-8.2 GM/DL Albumin 4.0 3.2-4.5 GM/DL My Orders Orders - GREG SNOW Ed Iv/Invasive Line Start (11/27/19 11:39) Ns Iv 1000 Ml (Sodium Chloride 0.9%) (11/27/19 11:39) Cbc With Automated Diff (11/27/19 11:39) Lactic Acid Analyzer (11/27/19 11:39) Ciprofloxacin Iv 400mg/200ml (Cipro Iv S (11/27/19 11:45) Comprehensive Metabolic Panel (11/27/19 12:35) Medications Given in ED Current Medications Medications Dose Ordered Sig/Jeff Route Start Time Stop Time Status Last Admin Dose Admin Ciprofloxacin/ Dextrose 200 ml @ 200 mls/hr ONCE ONCE IV 11/27/19 11:45 11/27/19 12:44 DC 11/27/19 12:01 200 MLS/HR Vital Signs/I&O 11/27/19 11/27/19 10:50 12:57 Temp 36.8 36.8 Pulse 92 80 Resp 18 18 B/P (MAP) 152/79 (103) 145/80 (103) Pulse Ox 98 O2 Delivery Room Air Capillary Refill : Less Than 3 Seconds Blood Pressure Mean: 103 Departure Impression Primary Impression: Urinary tract infection Qualified Codes: N30.01 - Acute cystitis with hematuria Disposition: HOME, SELF-CARE Condition: Improved Departure-Patient Inst. Decision time for Depature: 12:00 Referrals: FACUNDO CARL DO (PCP) Primary Care Physician CARISSA ASHER MD, ELIAS A MD Patient Instructions: Urinary Tract Infection, Adult (DC) Add. Discharge Instructions: See Dr Alexandra 3:15 on November 30. Follow up with your Primary Care Provider, if symptoms are not improving or worsen. Increase water intake, ounces every 2 hours while awake. Continue to take your cranberry pills and vitamins. Empty bladder every 2 hours while awake Take probiotics. Take antibiotics as prescribed. Alternate between Tylenol 650 mg and ibuprofen 600 mg orally 4 hours for pain or fever. Return to the emergency department for new, urgent health care problems. All discharge instructions reviewed with patient and/or family. Voiced understanding. Scripts Phenazopyridine HCl (Pyridium) 100 Mg Tablet 100 MG PO Q8H PRN for SPASMS, #6 TAB 0 Refills Prov: GREG SNOW 11/27/19 Ciprofloxacin HCl (Ciprofloxacin HCl) 500 Mg Tablet 500 MG PO BID, #14 TAB 0 Refills Prov: GREG SNOW 11/27/19 Copy Copies To 1: CARISSA ASHER MD; COLIN ALEXANDRA MD, AMY ARNP Nov 27, 2019 11:59
[2019-11-27] MEDS ORDERED: CIPR500T4 PO (12:00)
[2019-11-27 12:11] LABS: BASOPHILS % (AUTO) 0 % (0-10); EOSINOPHILS % (AUTO) 0 % (0-10); HEMATOCRIT 40 % (35-52); HEMOGLOBIN 13.3 G/DL (11.5-16.0); LYMPHOCYTES # (AUTO) 3.1 X 10^3 (1.0-4.0); LYMPHOCYTES % (AUTO) 23 % (12-44); MEAN CORPUSCULAR HEMOGLOBIN 31 PG (25-34); MEAN CORPUSCULAR HGB CONC 34 G/DL (32-36); MEAN CORPUSCULAR VOLUME 92 FL (80-99); MEAN PLATELET VOLUME 10.3 FL (7.4-10.4); MONOCYTES # (AUTO) 0.8 X 10^3 (0.0-1.0); MONOCYTES % (AUTO) 6 % (0-12); NEUTROPHILS # (AUTO) 9.5 X 10^3 (1.8-7.8); NEUTROPHILS % (AUTO) 71 % (42-75); PLATELET COUNT 300 10^3/uL (130-400); RED CELL DISTRIBUTION WIDTH 12.5 % (10.0-14.5); WHITE BLOOD COUNT 13.4 10^3/uL (4.3-11.0)
[2019-11-27] MEDS ORDERED: PHEN-639 PO (12:37)
[2019-11-27 12:43] LABS: CHLORIDE 94 MMOL/L (98-107); POTASSIUM 4.3 MMOL/L (3.6-5.0); SODIUM 130 MMOL/L (135-145)
[2019-11-27 12:44] LABS: CALCIUM 8.8 MG/DL (8.5-10.1)
[2019-11-27 12:45] LABS: GLUCOSE 130 MG/DL (70-105); TOTAL PROTEIN 6.8 GM/DL (6.4-8.2)
[2019-11-27 12:47] LABS: BILIRUBIN,TOTAL 0.3 MG/DL (0.1-1.0); CARBON DIOXIDE 26 MMOL/L (21-32)
[2019-11-27 12:49] LABS: ALKALINE PHOSPHATASE 110 U/L (40-136); CREATININE SERUM 0.82 MG/DL (0.60-1.30); GFR ESTIMATED > 60
[2019-11-27 12:50] LABS: BUN/CREATININE RATIO 12
[2019-11-27 12:52] LABS: ALANINE AMINOTRANSFERASE 14 U/L (0-55)
[2019-11-27 12:57] VITALS: BP 145/80
== END 2019-11-27 12:58 | disposition home or self-care (01) ==
LOC: EDUNIT# 09:55 → ER 09:57
DX: N39.0 Urinary tract infection, site not specified (principal); I10 Essential (primary) hypertension; G43.909 Migraine, unspecified, not intractable, without status migrainosus; K21.9 Gastro-esophageal reflux disease without esophagitis; F41.9 Anxiety disorder, unspecified; F31.9 Bipolar disorder, unspecified; Z85.841 Personal history of malignant neoplasm of brain; Z88.5 Allergy status to narcotic agent; Z79.52 Long term (current) use of systemic steroids; Z82.49 Family history of ischemic heart disease and other diseases of the circulatory system
CPT/HCPCS: 36415; 80053; 81000; 83605; 85025; 87088

== ENCOUNTER → 2020-01-14 | Outpatient (CLI) | payer MEDICARE, MEDICAID ==
[~2020-01-14] MED LIST changes: -CALC600T12 PO; +CALC600T14 PO; +CIPR500T4 PO
--- NOTE | 2020-01-14 16:13 | Diagnostic Imaging Report ---
EXAMINATION: Abdomen at 03:31 p.m. INDICATION: Hematuria, flank pain. FINDINGS: There is no evidence for a calculus overlying either kidney or along the expected paths of the ureters; however, as on the prior exam of 05/29/2019, both renal contours are obscured by bowel gas and fecal material. There are a few phleboliths low in the pelvis on the left. There is gas in both the large and small bowel in a nonspecific fashion. There is no evidence for bowel obstruction. There is at least a moderate amount of fecal material in the ascending colon and transverse colon. There is no mass or organomegaly identified. Surgical clips are again seen in the right upper quadrant. The osseous structures are intact. IMPRESSION: 1. There is no evidence for a calculus overlying the kidneys or the expected paths of the ureters; however, the kidneys are obscured by bowel gas and fecal material. If clinical concern regarding an obstructive calculus persists, then CT of the abdomen and pelvis would be recommended for further study. 2. The bowel gas pattern is nonspecific. There is no acute abnormality noted. Dictated by: Dictated on workstation # [id number]
== END ==
LOC: RAD 15:21
PROVIDERS: ATTEND Nurse Practitioner Family
DX: R31.9 Hematuria, unspecified (principal); R10.9 Unspecified abdominal pain
CPT/HCPCS: 74018

== ENCOUNTER 2020-01-26 09:07 | Outpatient (CLI) | payer MEDICARE, MEDICAID ==
[~2020-01-26] VITALS: Ht 162.6 cm; Wt 68.4 kg
[2020-01-26] MEDS ORDERED: ZOLEDRONATE (NON-FORMULARY) 100 ML IV ONE (09:30)
[2020-01-26 09:45] VITALS: BP 142/74
== END 2020-01-26 10:22 | disposition home or self-care (01) ==
LOC: SDC 09:07
PROVIDERS: ATTEND Internal Medicine
DX: M81.0 Age-related osteoporosis without current pathological fracture (principal); Z78.0 Asymptomatic menopausal state
CPT/HCPCS: 96365

== ENCOUNTER 2020-02-02 18:50 | Emergency (ER) | payer MEDICARE, MEDICAID ==
[~2020-02-02] VITALS: Ht 160 cm; Wt 67.1 kg
--- OUTSIDE RECORDS SUMMARY | 2020-02-02 19:33 | XMS REPORT | Encounter Summary ---
Author Author [facility] Address Unknown Phone Unavailable Care Team Providers Care Tube Operator Name Role Phone Christina Black RN Unavailable Unavailable Tia Levi RN Unavailable Unavailable Ismael Mena MD Unavailable George Gleason MD Unavailable Lobito Blum MD Unavailable Reyes Tee MD Unavailable Unavailable Jonas Torres DO Unavailable Emergency, Nurse RN Unavailable Unavailable Emily Diez RN Unavailable Unavailable Yoselin Bradley RN Unavailable Unavailable Lauri Baldwin MD Unavailable Gabriel Wilson MD Unavailable Unavailable Mariposa Dougherty MD Unavailable Victoriano Loja MD Unavailable Rubina Demarco MD PCP Reason for Visit * Reason Onset Date Comments Care Coordination 01/21/2020 Encounter Details Care Team Description [place] [address] [place] [address] Care Coordination 01/21/2020 Telephone [facility] [address] [place] [address] Social History Date Tobacco Use Types Packs/Day Years Used Quit: 05/23/2019 Former Smoker Cigarettes 1 43 Smokeless Tobacco: Never Used Drinks/Week oz/Week Comments Alcohol Use No Sex Assigned at Date Recorded Female 09/24/2019 10:51 AM CDT documented as of this encounter Functional Status [...] encounter Miscellaneous Notes * Telephone Encounter - Shira Bah RN - 01/21/2020 2:26 PM CDT Faxed PT order to [facility] per patient request. Have let patient know that this has been faxed as well as that her Tramadol has been filled. Patient verbalized understanding. documented in this encounter Plan of Treatment Not on filedocumented as of this encounter Visit Diagnoses Not on filedocumented in this encounter
--- OUTSIDE RECORDS SUMMARY | 2020-02-02 19:33 | XMS REPORT | Encounter Summary ---
Author Author [facility] Organization [facility] Address Unknown Phone Unavailable Care Team Providers Care Verification Rep Name Role Phone Christina Black RN Unavailable Unavailable Tia Levi RN Unavailable Unavailable Imsael Mena MD Unavailable George Gleason MD Unavailable [...] for Visit * Reason Onset Date Comments Medication Refill 01/21/2020 Encounter Details Care Team Description [place] [address] [place], [place] [address] 01/21/2020 Refill [facility] [address] [place] [address] Social History Date Tobacco Use [...] Encounter - Shira Bah RN - 01/21/2020 11:45 AM CDT Patient called for refill of Tramadol 50mg tablet. Take 1 tablet by mouth Q8 barrington rs PRN Pain. Date of last refill per chart or pharmacy 12/18/2019. Pharmacy Name [facility] Last office visit 10/16/2019. Follow up appointment None. Will route for provider review. Patient also requesting new PT script. Thank you. documented in this encounter Plan of Treatment Not on filedocumented as of this encounter Visit Diagnoses Not on filedocumented in this encounter
--- OUTSIDE RECORDS SUMMARY | 2020-02-02 19:33 | XMS REPORT | Encounter Summary ---
Author Author [facility] Organization [facility] Address Unknown Phone Unavailable Care Team Providers Care Fermentation Scientist Name Role Phone Christina Black RN Unavailable [...] Visit * Reason Onset Date Comments Medication Question 11/26/2019 Reclast Encounter Details Care Team Description Date Type Department Janie Myers MD [address] [facility] [address] [place] [address] Medication Question (Reclast) 11/26/2019 Telephone [facility] [address] [place] [address] Social History Date Tobacco Use Types Packs/Day Years Used Quit: 05/23/2019 Former Smoker Cigarettes 1 43 Smokeless Tobacco: Never Used Drinks/Week oz/Week Comments Alcohol Use No Sex Assigned at Date Recorded Female 09/24/2019 10:51 AM CDT Date Recorded COVID-19 Exposure Response 11/18/2019 2:31 PM CDT In the last month, have you been in contact with No / Unsure someone who was confirmed or suspected to have Coronavirus / COVID-19? documented as of this encounter Functional Status [...] encounter Miscellaneous Notes * Telephone Encounter - Dasha Anaya RN - 11/27/2019 10:10 AM CDT Spoke with pt to relay order is ready to be faxed. Pt would like this sent to her PCP office, Dr. Rubina Demarco. Relayed pt should probably call them to let them know this is coming; pt agreed. Faxed Reclast orders to Dr. Rubina Demarco's Office via [employer]. # [phone] # [phone] 10:16 AM 11/27/2019 Transmission Record Sent to: Dr. Rubina Demarco Phone: [phone] Billing information: '', '' Remote ID: [id number] Unique ID: "[id number]" Elapsed time: 2 minutes, 38 seconds. Used channel 4 on patient observer "[id number]". No ANI data. No AOC data. Resulting status code (0/339; 0/0): Success Pages sent: 1 - 3 Delegate ID: "" * Telephone Encounter - Dasha Anaya RN - 11/26/2019 9:59 AM CDT Pt LVM asking if she could complete her Reclast closer to home in [facility] [place]. Completed order and obtained Dr. Myers's signature. Sent pt [employer] message requesting information for location where she would like to have her infusion. documented in this encounter Plan of Treatment Not on filedocumented as of this encounter Visit Diagnoses Not on filedocumented in this encounter
--- OUTSIDE RECORDS SUMMARY | 2020-02-02 19:33 | XMS REPORT | Encounter Summary ---
Author Author [facility] Organization [facility] Address Unknown Phone Unavailable Care Team Providers Care Trashman Name Role Phone Christina Black RN Unavailable [...] Unavailable Rubina Demarco MD PCP Reason for Referral * Consult, Test & Treat (Routine) Referred By Contact Referred To Contact Status Reason Specialty Diagnoses / Procedures Nena Ramos APRN-NP [address] [place] [address] New Request Specialty Services Diagnoses Required Lumbar radiculopathy Mid back pain Chronic bilateral low back pain without sciatica Myofascial pain Encounter Details Care Team Description Date Type Department Nena Ramos APRN-NP [address] [place] [address] [phone] Lumbar radiculopathy (Primary Dx); Mid back pain; Chronic bilateral low back pain without sciatica; Myofascial pain 01/21/2020 Orders Only [facility] [address] [facility] [address] [place] [address] Social History Date Tobacco Use Types Packs/Day [...] impairment: No documented as of this encounter Plan of Treatment Order Schedule Name Type Priority Associated Diag noses Ordered: 01/21/2020 AMB REFERRAL TO PHYSICAL Outpatient Routine Lumba r radiculopathy OR OCCUPATIONAL THERAPY Referral Mid back pain Chronic bilateral low back pain without sciatica Myofascial pain documented as of this encounter Visit Diagnoses Diagnosis Lumbar radiculopathy Thoracic or lumbosacral neuritis or rad iculitis, unspecified Mid back pain Backache, unspecified Chronic bilateral low back pain without sciatica Myofascial pain Mylagia and myositis, unspecified documented in this encounter
--- OUTSIDE RECORDS SUMMARY | 2020-02-02 19:33 | XMS REPORT | Encounter Summary ---
Author Author [facility] Organization [facility] Address Unknown Phone Unavailable Care Team Providers Care Escalator Installer Name Role Phone Christina Black RN Unavailable Unavailable Tia Levi RN Unavailable Unavailable Ismael Mena MD Unavailable George Gleason MD Unavailable Lobito Blum MD Unavailable Reyes Tee MD Unavailable Unavailable Jonas Torres DO Unavailable Emergency, Nurse RN Unavailable Unavailable Emily Diez RN Unavailable Unavailable Yoselin Bradley RN Unavailable Unavailable Lauri Baldwin MD Unavailable Gabirel Wilson MD Unavailable Unavailable Mariposa Dougherty MD Unavailable Victoriano Loja MD Unavailable Rubina Demarco MD PCP Encounter Details Care Team Description [place] [address] [place] [address] Chronic arthritis (Primary Dx); Lumbar radiculopathy 12/29/2019 Orders Only [facility] [address] [place] [address] Social History Date Tobacco Use [...] filedocumented as of this encounter Visit Diagnoses Diagnosis Chronic arthritis Arthropathy, unspecified, site unspecif ied Lumbar radiculopathy Thoracic or lumbosacral neuritis or rad iculitis, unspecified documented in this encounter
--- OUTSIDE RECORDS SUMMARY | 2020-02-02 19:33 | XMS REPORT | Encounter Summary ---
Author Author [facility] Organization [facility] Address Unknown Phone Unavailable Care Team Providers Care Sinker Puller Name Role Phone Christina Black RN Unavailable [...] * Reason Onset Date Comments Care Coordination 12/18/2019 Encounter Details Care Team Description [place] [address] [place] [address] Care Coordination 12/18/2019 Telephone [facility] [address] [place] [address] Social History Date Tobacco Use [...] Telephone Encounter - Shira Bah RN - 12/18/2019 3:03 PM CDT Patient called requesting refill for Tramadol. Patient states that she is very u pset that it had been 2 months for getting her lift chair approved. States that 4 different companies will come out and give her fisher options and that she was fitted for the chair. Apologized to patient, and let her know that we faxed the requested information to her insurance on 11/24/2019 and fax was confirmed. Asked if there was anything else that our office could do and if she would like to spe ak to boiler shop supervisor. Patient declined. documented in this encounter Plan of Treatment Not on filedocumented as of this encounter Visit Diagnoses Not on filedocumented in this encounter
--- OUTSIDE RECORDS SUMMARY | 2020-02-02 19:33 | XMS REPORT | Encounter Summary ---
Author Author [facility] Organization [facility] Address Unknown Phone Unavailable Care Team Providers Care Cigar Machine Feeder Name Role Phone Christina Black RN Unavailable [...] * Reason Onset Date Comments Care Coordination 12/03/2019 Encounter Details Care Team Description [place] [address] [place] [address] Care Coordination 12/03/2019 Telephone [facility] [address] [place] [address] Social History Date Tobacco Use [...] Telephone Encounter - Shira Bah RN - 12/03/2019 3:22 PM CDT Patient's insurance [facility] called to touch base on the order for lif t chair. Insurance is stating that it looks like patient has not picked out DME yet to supply the chair as they have not received any information for authorizat ion from a DME company. Will let patient know that they have not received any in formation to get this authorized. documented in this encounter Plan of Treatment Not on filedocumented as of this encounter Visit Diagnoses Not on filedocumented in this encounter
--- OUTSIDE RECORDS SUMMARY | 2020-02-02 19:33 | XMS REPORT | Encounter Summary ---
Author Author [facility] Organization [facility] Address Unknown Phone Unavailable Care Team Providers Care Hospital Insurance Clerk Name Role Phone Christina Black RN Unavailable [...] for Visit * Reason Onset Date Comments Other 01/09/2020 [facility]/ [facility], [place] facility Encounter Details Care Team Description Date Type Department Janie Myers MD [address] [facility] [address] [place] [address] [phone] Other ([facility]/ [facility]) 01/09/2020 Telephone [facility] [address] [place] [address] Social History Date Tobacco Use [...] Telephone Encounter - Dasha Anaya RN - 01/14/2020 3:27 PM CDT Completed/signed Reclast order sets faxed to [facility] per information below. Fx# [phone]; fax confirmation rec'd [email or web address]:[phone]. Routing original to PRR to scan to chart. * Telephone Encounter - Janie Myers MD - 01/14/2020 1:19 PM CDT Orders signed. Sent back to Dasha via secure email. LME * Telephone Encounter - Dasha Anaya RN - 01/14/2020 6:51 AM CDT Reclast orders prepared and routed to Dr. Myers via secure email for review/signat ure. Dr. Myers, would you want me to ask another physician to sign for you? * Telephone Encounter - Dasha Anaya RN - 01/09/2020 3:38 PM CDT Pt LVM providing the following information re: local Reclast infusion: [facility] Fx# [phone] Called pt to relay I will prepare form for Dr. Myers to sign. documented in this encounter Plan of Treatment Not on filedocumented as of this encounter Visit Diagnoses Not on filedocumented in this encounter
--- OUTSIDE RECORDS SUMMARY | 2020-02-02 19:33 | XMS REPORT | Clinical Summary ---
Author Author [facility] Organization [facility] Address Unknown Phone Unavailable Care Team Providers Care Dredge Pipe Installer Name Role Phone Christina Black RN Unavailable Unavailable Tia Levi RN Unavailable Unavailable Ismael Mena MD Unavailable George Gleason MD Unavailable Lobito Blum MD Unavailable Reyes Tee MD Unavailable Unavailable Jonas Torres DO Unavailable Emergency, Nurse RN Unavailable Unavailable Emily Diez RN Unavailable Unavailable Yoselin Bradley RN Unavailable Unavailable Lauri Baldwin MD Unavailable Gabriel Wlison MD Unavailable Unavailable Mariposa Dougherty MD Unavailable Victoriano Loja MD Unavailable Rubina Demarco MD PCP Source Comments Some departments are not documenting in the electronic medical record. If you d o not see the information that you expected, contact Release of Information in [facility] Information Management department at [phone] for further assistan ce in locating additional records.[facility] Allergies Comments Active Allergy Reactions Severity Noted Date Hydromorphone RASH Medium 07/16/2019 topical Iodine HIVES Medium 06/18/1974 Hydrocodone-Acetaminophen ITCHING Low 06/0 07/2019 Morphine HIVES Medium 06/18/1974 Medications End Date Status Medication Sig Dispensed Refills Start Date Active levomilnacipran (FETZIMA) Take 120 mg 0 120 mg Cs24 by mouth daily. Active cholecalciferol (VITAMIN Take 0 D-3) 1,000 units tablet 3,000-4,000 Units by mouth daily. Active magnesium oxide 400 mg Take 1 Cap by 30 Cap 1 0 cap mouth daily. 5 Additional Information Patient taking differently: 500 mg Oral SEE ADMIN INSTRUCTIONS, Takes one every morning. May also take as needed for headache., Reported on 03/19/2015 11:21 AM Active estradiol (ESTRACE) 2 mg Take 2 mg by 0 tablet mouth every morning. Active hydrOXYzine (ATARAX) 10 Take 10 mg by 0 mg tablet mouth three times daily as needed for Itching. Active ibuprofen (MOTRIN) 600 mg Take 600 mg 0 tablet by mouth every 6 hours as needed for Pain. Active estradiol(+) (VAGIFEM) 10 Insert or 0 mcg vaginal tablet Apply 10 mcg to vaginal area twice weekly. Insert one tablet vaginally daily for two weeks; then insert one tablet twice weekly. Active Lactobacillus rhamnosus Take by 0 GG (LACTOBACILLUS mouth daily RHAMNOSUS (GG)) 15 with billion cell cpSP breakfast. Active pantoprazole DR 0 (PROTONIX) 20 mg tablet 7 Active divalproex (DEPAKOTE ER) 1,000 mg at 0 06/29 500 mg ER tablet bedtime 7 daily. Active lidocaine-prilocaine apply small 30 g 3 07/19 (EMLA) 2.5-2.5 % topical amount to 7 cream affected area Active fluticasone (FLOVENT HFA) Inhale 2 0 110 mcg/actuation inhaler puffs by mouth into the lungs twice daily. Active baclofen (LIORESAL) 20 mg TAKE 1 TABLET 3 01/16 tablet BY MOUTH 8 TWICE DAILY WITH FOOD OR MILK Active MULTIVITAMIN PO Take by 0 mouth. Active buPROPion XL (WELLBUTRIN Take 150 mg 0 08/29 XL) 150 mg tablet by mouth. 9 Active diclofenac (VOLTAREN) 1 % Apply two g 1 Tube 5 topical gel topically to 0 affected area four times daily. Active Cyanocobalamin 1,[address] 1,000 0 subl mcg under tongue. Active diphenhydramine HCl Take by 0 (BENADRYL ALLERGY PO) mouth at bedtime daily. 2 tabs at hs Active vit A/vit C/vit Take by 0 E/zinc/copper (OCUVITE mouth. PRESERVISION PO) Active loratadine (CLARITIN) 10 Take 10 mg by 0 mg tablet mouth every morning. Active traMADoL (ULTRAM) 50 mg Take one 30 tablet 0 tablet tablet by 0 mouth every 8 hours as needed for Pain. 01/21/2020 Discontinued (Reorder) traMADoL (ULTRAM) 50 mg Take one 30 tablet 0 tablet tablet by 0 mouth every 8 hours as needed for Pain. Active Problems Problem Noted Date Spinal stenosis [...] 09/24/2014 Lytic bone lesions on xray 08/31/2014 Osteoporosis Closed compression fracture of body of L1 vertebra Encounters Care Team Description Date Type Specialty Ger Cain MD Care Coordination 01/21/2020 Telephone Rehabilitation [facility] Nena Oneil, CORE MOUNTER-GROUP EXERCISE MANAGER Lumbar radiculopathy (Primary Dx); Mid back pain; Chronic bilateral low back pain without sciatica; Myofascial pain 01/21/2020 Orders Only Rehabilitation Ger Rose MD 01/21/2020 Refill Rehabilitation [facility] Janie Vazquez MD Other (Reclast / [facility]) 01/09/2020 Telephone Endocrinology, [facility] Ger Cain MD Chronic arthritis (Primary Dx); Lumbar radiculopathy 12/29/2019 Orders Only Rehabilitation Ger Rose MD Care Coordination 12/18/2019 Telephone Rehabilitation Ger Rose MD 12/18/2019 Refill Rehabilitation [facility] Ger Arrington MD Care Coordination 12/03/2019 Telephone Rehabilitation [facility] Janie Vazquez MD Medication Question (Reclast) 11/26/2019 Telephone Endocrinology, [facility] Louis, Janie M, MD Other (outside lab) 11/25/2019 Telephone Endocrinology [employer] [facility] Janie Myers MD Age-related osteoporosis without current pathological fracture; Closed compression fracture of L1 lumbar vertebra, sequela 11/25/2019 Orders Only Endocrinology [facility] Ger Cain MD Order Follow Up 11/24/2019 Telephone Rehabilitation Janie Ambriz MD Age-related osteoporosis without current pathological fracture; Closed compression fracture of body of L1 vertebra (HCC) 11/21/2019 Orders Only Endocrinology [facility] Ger Cain MD Medication Question 11/21/2019 Telephone Rehabilitation Janie Ambriz MD Age-related osteoporosis without current pathological fracture; Closed compression fracture of L1 lumbar vertebra, sequela; Chronic fatigue 11/20/2019 Orders Only [facility] Janie Myers MD Lab Request 11/19/2019 Telephone Endocrinology [employer] [facility] Ger Cain MD 11/18/2019 Hospital Radiology Encounter Ger Cain MD Lumbar radiculopathy 11/18/2019 Procedure visit Anesthesia Ger Rodrigues MD Eck, Leigh M, MD Age-related osteoporosis without current pathological fracture (Primary Dx); Closed compression fracture of L1 lumbar vertebra, sequela; Chronic fatigue; Gastroesophageal reflux disease, esophagitis presence not specified; Intolerance of oral bisphosphonate therapy 11/18/2019 Office Visit [facility] 11/18/2019 Travel Ger Cain MD 11/18/2019 Telephone Anesthesia Pain Ger Cain MD Pre-Visit Planning 11/17/2019 Telephone Anesthesia Janie Mon MD Appointment (Earlier appt offered) 11/07/2019 Telephone Endocrinology, [facility] Ger Cain MD Mid back pain (Primary Dx); Chronic bilateral low back pain without sciatica; Myofascial pain 11/04/2019 Orders Only Rehabilitation Ger Rose MD Care Coordination 11/04/2019 Telephone Rehabilitation Ger Rose MD 11/04/2019 Orders Only Rehabilitation Aleida langston from Last 3 Months Family History Medical [...] Tobacco: Never Used Tobacco Cessation: Counseling Given: No Drinks/Week oz/Week Comments Alcohol Use No Sex Assigned at Date Recorded Female 09/24/2019 10:51 AM CDT Last Filed Vital Signs Reading Time Taken Comments Vital Sign 143/82 11/18/2019 3:36 PM CDT Blood Pressure 95 11/18/2019 2:37 PM CDT Pulse 37.1 C (98.7 F) 11/18/2019 2:37 PM CDT Temperature 16 11/18/2019 2:37 PM CDT Respiratory Rate 99% 11/18/2019 3:36 PM CDT Oxygen Saturation - - Inhaled Oxygen Concentration 68.9 kg (152 lb) 11/18/2019 2:37 PM CDT Weight 162.6 cm (5' 4") 11/18/2019 2:37 PM CDT Height 26.09 11/18/2019 2:37 PM CDT Body Mass Index Plan of Treatment Health Maintenance Due Date Last Done Comments MEDICARE ANNUAL WELLNESS 1955 VISIT HIV SCREENING 12/28/1971 DTAP/TDAP VACCINES (1 - 1974 Tdap) HEPATITIS C SCREENING 1974 PHYSICAL (COMPREHENSIVE) 1974 EXAM CERVICAL CANCER SCREENING 1977 BREAST CANCER SCREENING 1996 COLORECTAL CANCER 2006 SCREENING SHINGLES RECOMBINANT 2006 VACCINE (1 of 2) INFLUENZA VACCINE 03/18/2020 Procedures Comments Procedure Name Priority Date/Time Associated Diag nosis CELIAC SCREEN Routine 11/20/2019 Age-related ost eoporosis without current pathological fracture Closed compression fracture of L1 lumbar vertebra, sequela GLIADIN, DEAMIDATED IGA Routine 11/20/2019 Age-re lated osteoporosis without current pathological fracture Closed compression fracture of L1 lumbar vertebra, sequela PHOSPHORUS Routine 11/20/2019 Age-related ost eoporosis without current pathological fracture Closed compression fracture of L1 lumbar vertebra, sequela CBC AND DIFF Routine 11/20/2019 Age-related ost eoporosis without current pathological fracture Closed compression fracture of L1 lumbar vertebra, sequela Chronic fatigue COMPREHENSIVE METABOLIC Routine 11/20/2019 Age-re lated osteoporosis PANEL without current pathological fracture Closed compression fracture of L1 lumbar vertebra, sequela PARATHYROID HORMONE Routine 11/20/2019 Age-relate d osteoporosis without current pathological fracture Closed compression fracture of L1 lumbar vertebra, sequela 25-OH VITAMIN D (D2 + D3) Routine 11/20/2019 Age- related osteoporosis without current pathological fracture Closed compression fracture of L1 lumbar vertebra, sequela TSH WITH FREE T4 REFLEX Routine 11/20/2019 Age-re lated osteoporosis without current pathological fracture Closed compression fracture of L1 lumbar vertebra, sequela Chronic fatigue FLUORO GUIDANCE FOR INJ Routine 11/18/2019 Low ba ck pain with RAD 3:18 PM CDT sciatica, sciatica laterality unspecified, unspecified back pain laterality, unspecified chronicity SD NJX DX/THER SBST Routine 11/18/2019 Lumbar rad iculopathy INTRLMNR LMBR/SAC W/IMG 2:45 PM CDT GDN from Last 3 Months Results * CELIAC SCREEN (11/20/2019) TTG IGG <0.8 0.0 - 14.9 [facility] TTG IgA <0.5 0.0 - 14.9 [facility] Endomysial IGA Negative [facility] Titer Specimen Blood Narrative Performed At This result has an attachment that is n ot available. Performing Organization Address [facility] Ph one Number [facility] [address] [place] [address] * GLIADIN, DEAMIDATED IGA (11/20/2019) Gliadin IGA 0.5 0.0 - 14.9 [facility] Gliadin IGG 8.9 0.0 - 14.9 [facility] Specimen Narrative Performed At This result has an attachment that is n ot available. Performing Organization Address [facility]/State[facility] Ph one Number MAIN LAB [address] [place] [address] * TSH WITH FREE T4 REFLEX (11/20/2019) TSH 1.54 0.45 - 5.33 OTHER OUTSIDE LAB Specimen Blood - Blood Narrative Performed At This result has an attachment that is n ot available. Performing Organization Address City/State/Zipcode Ph one Number OTHER OUTSIDE LAB * PARATHYROID HORMONE (11/20/2019) PTH 42.80 12.00 - 88.00 [facility] Specimen Blood - Blood Narrative Performed At This result has an attachment that is n ot available. Performing Organization Address City/State/Zipcode Ph one Number MAIN LAB [address] [place] [address] * 25-OH VITAMIN D (D2 + D3) (11/20/2019) Vitamin 49.91 OTHER OUTSIDE D(25-OH)Total LAB Specimen Blood - Blood Narrative Performed At This result has an attachment that is n ot available. Performing Organization Address City/State/Zipcode Ph one Number OTHER OUTSIDE LAB * CBC AND DIFF (11/20/2019) White Blood 12.85 (A) 5.00 - 10.00 OTHER OUTSIDE Cells LAB RBC 4.40 3.60 - 5.00 OTHER OUTSIDE LAB Hemoglobin 13.3 13.0 - 15.0 OTHER OUTSIDE LAB Hematocrit 40.7 36.0 - 46.0 OTHER OUTSIDE LAB MCV 92.5 80.0 - 97.0 OTHER OUTSIDE LAB MCH 30.2 27.0 - 31.0 OTHER OUTSIDE LAB MCHC 32.7 32.0 - 36.0 OTHER OUTSIDE LAB Platelet Count 337 150 - 400 OTHER OUTSIDE LAB MPV OTHER OUTSIDE LAB RDW 12.6 11.6 - 14.8 OTHER OUTSIDE LAB Neutrophils 73.4 37.0 - 80.0 OTHER OUTSIDE LAB Absolute 9.43 (A) 2.00 - 6.90 OTHER OUTSIDE Neutrophil LAB Count Lymphocytes 20.3 10.0 - 50.0 OTHER OUTSIDE LAB Absolute Lymph 2.61 0.60 - 3.40 OTHER OUTSIDE Count LAB Monocytes 5.8 0.0 - 12.0 OTHER OUTSIDE LAB Absolute 0.8 0.0 - 0.9 OTHER OUTSIDE Monocyte Count LAB Eosinophil 0.2 0.0 - 7.0 OTHER OUTSIDE LAB Absolute 0.0 0.0 - 0.7 OTHER OUTSIDE Eosinophil LAB Count Basophils 0.3 0.0 - 2.5 OTHER OUTSIDE LAB Absolute 0.0 0.0 - 0.2 OTHER OUTSIDE Basophil Count LAB Atypical Lym OTHER OUTSIDE LAB Metamyelocyte OTHER OUTSIDE LAB Myelocyte OTHER OUTSIDE LAB Promyelocyte OTHER OUTSIDE LAB Blast OTHER OUTSIDE LAB RBC Morph OTHER OUTSIDE LAB WBC Morphology OTHER OUTSIDE LAB Specimen Blood - Blood Narrative Performed At This result has an attachment that is n ot available. Performing Organization Address City/State/Zipcode Ph one Number OTHER OUTSIDE LAB * PHOSPHORUS (11/20/2019) Phosphorus 3.6 2.5 - 4.5 OTHER OUTSIDE LAB Specimen Blood - Blood Narrative Performed At This result has an attachment that is n ot available. Performing Organization Address City/State/Zipcode Ph one Number OTHER OUTSIDE LAB * COMPREHENSIVE METABOLIC PANEL (11/20/2019) Sodium 134 132 - 145 OTHER OUTSIDE LAB Potassium 3.9 3.5 - 5.5 OTHER OUTSIDE LAB Chloride 98 95 - 110 OTHER OUTSIDE LAB CO2 28.0 24.0 - 34.0 OTHER OUTSIDE LAB Blood Urea 13 9 - 27 OTHER OUTSIDE Nitrogen LAB Creatinine 0.6 0.6 - 1.5 OTHER OUTSIDE LAB Glucose 115 60 - 125 OTHER OUTSIDE LAB Calcium 9.4 8.5 - 10.8 OTHER OUTSIDE LAB Total Protein 6.5 6.0 - 8.0 OTHER OUTSIDE LAB Total Bilirubin 0.4 0.1 - 1.4 OTHER OUTSIDE LAB Albumin 4.2 3.6 - 4.8 OTHER OUTSIDE LAB Alk Phosphatase 89 30 - 115 OTHER OUTSIDE LAB AST (SGOT) 13 0 - 40 OTHER OUTSIDE LAB ALT (SGPT) 10 10 - 30 OTHER OUTSIDE LAB eGFR Non 101 >59 OTHER OUTSIDE LAB Albanian eGFR OTHER OUTSIDE Albanian LAB Anion Gap 1.9 1.1 - 2.5 OTHER OUTSIDE LAB Specimen Blood - Blood Narrative Performed At This result has an attachment that is n ot available. Performing Organization Address City/State/Zipcode Ph one Number OTHER OUTSIDE LAB * FLUORO GUIDANCE FOR INJ RAD (11/18/2019 3:18 PM CDT) Specimen Narrative Performed At This order has been auto finalized and does not conta in a result. [facility] Performing Organization Address City/State/Zipcode Ph one Number [facility] * [facility] INJECT INTERLAM LMBR/SAC (11/18/2019 2:45 PM CDT) Narrative Performed At Ger Cain MD 11/18/2019 3:41 PM OTHER [facility] LAB [facility] INJECT INTERLAM LMBR/SAC [...] nt has decided to proceed with treatment/procedure. [place] Protocol: Relevant documents: relevant documents present and verified Test results: test results available an d properly labeled Imaging studies: imaging studies availa ble Required items: required blood products , implants, devices, and special equipment available [facility] marked: [facility] Patient identity confirmed: Patient danilo ntify confirmed verbally with patient. Time out: Immediately prior to procedur e a "time out" was called to verify the correct patient, procedure, equipme nt, presidential support specialist and site/side marked as required Procedures Details: Indications: pain Prep: chlorhexidine Patient position: prone Estimated Blood Loss: minimal Specimens: none Number of Levels: 1 Approach: midline Guidance: fluoroscopy Contrast: Procedure confirmed with cont rast under live fluoroscopy. Needle and Epidural Catheter: tuohy Needle size: 20 G Injection procedure: Incremental inject ion and Negative aspiration for blood Patient tolerance: Patient tolerated th e procedure well with no immediate complications. Pressure was applied, an d hemostasis was accomplished. Comments: DESCRIPTION OF PROCEDURE: T he procedure risks and benefits were explained to the patient and informed c onsent was obtained. The patient was positioned prone on the fluoroscopy table with a pillow under the abdomen to help reduce lumbar lordosis. Blood pressure cuff and oxygen saturation monitors were attached and t he patient was monitored throughout the entire procedure. The L5 vertebra l level was identified with the use of fluoroscopy in the AP view. The sk in was prepped using Chlorhexadine and draped in aseptic fashion. The sk in and subcutaneous tissue were anesthetized using 3 mL of 1 percent li docaine with a 27-gauge needle. A 3.5 inch 22-gauge Tuohy needle was slow ly advanced using AP view towards the midline L5-S1 epidural space. The latter part of the needle advancement was guided with fluoroscopy in the lateral view. The epidural space was identified using loss of resi stance technique. After negative aspiration, 1 mL of Isovue contrast dye was injected. After epidural spread was seen, a solution containing 80 mg of triamcinolone and 2 mL of normal saline was injected in increment s. The stylet was reinserted and the needle was then removed. After the procedure, the patient's bloo d pressure, heart rate, oxygen saturation, and VAS were recorded in chart. There were no complications. The patient tolerated the procedure well and was brought to recovery room for observation in sta ble condition and discharged with written discharge instructions. PLAN OF CARE: The patient is to [facility] in 6 weeks. The patient was advised to contact the [facility] for any of the following Fever, chills, or night sweats. New onset of severe sharp pain. Any new upper or lower extremity weakne ss or numbness. Any questions regarding the procedure. Performing Organization Address City/State/[facility] Ph one Number OTHER OUTSIDE LAB from Last 3 Months Insurance Type Payer Benefit Subscriber ID Effective Phone Address Plan / Dates Group Medicare MEDICARE MEDICARE [id number] 2017-P PART A AND resent B Medicaid [facility] MEDICAID [facility] [id number] 2018-P COMMUNITY resent PLAN [place] Advance Directives Patient Glove Turner Explanation Type Date Recorded Advance Directive/DPOA Date Inactivated Comments Code Status Date Activated 01/15/2015 6:26 PM Full Code 01/14/2015 1:47 PM Provider has discussed Code Status No, discussion no t w/Patient or Family? necessary based on Dx 10/22/2014 4:32 PM Full Code 10/22/2014 4:24 AM Provider has discussed Code Status No, more discussi on w/Patient or Family? needed
--- OUTSIDE RECORDS SUMMARY | 2020-02-02 19:33 | XMS REPORT | Encounter Summary ---
Author Author [facility] Organization [facility] Address Unknown Phone Unavailable Care Team Providers Care Behavior Specialist Name Role Phone Christina Black RN Unavailable [...] Visit * Reason Onset Date Comments Other 11/25/2019 outside lab Encounter Details Care Team Description Date Type Department Janie Myers MD [address] Orth[address]/[facility] Pav[facility] [address] [place], [place] [id number] Other (outside lab) 11/25/2019 Telephone [facility] [address] [place] [address] Social History Date Tobacco Use [...] encounter Miscellaneous Notes * Telephone Encounter - Kortney Collado LPN - 11/25/2019 7:36 AM CDT Celiac panel scanned to O2 documented in this encounter Plan of Treatment Not on filedocumented as of this encounter Visit Diagnoses Not on filedocumented in this encounter
--- OUTSIDE RECORDS SUMMARY | 2020-02-02 19:33 | XMS REPORT | Encounter Summary ---
Author Author [facility] Organization [facility] Address Unknown Phone Unavailable Care Team Providers Care Overnight Cashier Name Role Phone Christina Black RN Unavailable [...] * Reason Onset Date Comments Medication Refill 12/18/2019 Encounter Details Care Team Description [place] [address] [place], [place] [id number] 12/18/2019 Refill [facility] [address] [place] [address] Social History Date Tobacco Use [...] Encounter - Shira Bah RN - 12/18/2019 2:50 PM CDT Patient called for refill of Tramadol 50mg tablet. Take 1 tablet by mouth every 8 hours as needed for pain. Date of last refill per chart or pharmacy 11/21/2019 Pharmacy Name [facility] Last office visit 10/16/2019. Follow up appointment None at this time. Will route for Dr. Cain review. documented in this encounter Plan of Treatment Not on filedocumented as of this encounter Visit Diagnoses Not on filedocumented in this encounter
--- OUTSIDE RECORDS SUMMARY | 2020-02-02 19:34 | XMS REPORT | Encounter Summary ---
Author Author [facility] Organization [facility] Address Unknown Phone Unavailable Care Team Providers Care Sap Abap Developer Name Role Phone Christina Black RN Unavailable [...] Loja MD Unavailable Reason for Referral * Radiology Services (Routine) Referred By Contact Referred To Contact Status Reason Specialty Diagnoses / [place] [address] [place] [address] New Request Radiology Diagnoses Low back pain with sciatica, sciatica laterality unspecified, unspecified back pain laterality, unspecified chronicity P rocedures FLUORO GUIDANCE FOR INJ RAD Reason for Visit * Reason Onset Date Comments Pre-Visit Planning 11/17/2019 Encounter Details Care Team Description [place] [address] [place] [address] Pre-Visit Planning 11/17/[address] [facility] [address] [address] Social History Date Tobacco Use Types Packs/Day [...] filedocumented as of this encounter Results * FLUORO GUIDANCE FOR INJ RAD (11/18/2019 3:18 PM CDT) Specimen Narrative Performed At This order has been auto finalized and does not conta in a result. [facility] Performing Organization Address [facility] Number [facility] documented in this encounter Visit Diagnoses Diagnosis Low back pain with sciatica, sciatica l aterality unspecified, unspecified back pain laterality, unspecified chronicity documented in this encounter
--- OUTSIDE RECORDS SUMMARY | 2020-02-02 19:34 | XMS REPORT | Encounter Summary ---
Author Author [facility] Organization [facility] Address Unknown Phone Unavailable Care Team Providers Care Electronics Utility Worker Name Role Phone Christina Black RN Unavailable [...] for Visit * Reason Onset Date Comments Order Follow Up 11/24/2019 Encounter Details Care Team Description [place] [address] [place] [address] Order Follow Up 11/24/2019 Telephone [facility] [address] [place] [address] Social History Date Tobacco Use [...] * Telephone Encounter - Patti Devi - 11/24/2019 2:31 PM CDT I printed off the order for the lift chair, had Dr. Cain sign it and faxed to [facility] insurance company-[employer] at [phone]. Fax confirmation was received. documented in this encounter Plan of Treatment Not on filedocumented as of this encounter Visit Diagnoses Not on filedocumented in this encounter
--- OUTSIDE RECORDS SUMMARY | 2020-02-02 19:34 | XMS REPORT | Encounter Summary ---
Author Author [facility] Organization [facility] Address Unknown Phone Unavailable Care Team Providers Care Supervisor Show Operations Name Role Phone Christina Black RN Unavailable [...] Date Type Department Janie Myers MD [address] [facility] [address] [place] [address] [phone] Age-related osteoporosis without current pathological fracture; Closed compression fracture of L1 lumbar vertebra, sequela 11/25/2019 Orders Only [facility] [address] [place] [address] Social History Date Tobacco Use Types Packs/Day [...] compression fracture of L1 lumbar vertebra, sequela documented in this encounter Results * CELIAC SCREEN (11/20/2019) TTG IGG <0.8 0.0 - 14.9 [facility] TTG IgA <0.5 0.0 - 14.9 [facility] Endomysial IGA Negative [facility] Titer Specimen Blood Narrative Performed At This result has an attachment that is n ot available. Performing Organization Address [facility] Ph one Number [facility] [address] [place] [address] * GLIADIN, DEAMIDATED IGA (11/20/2019) Gliadin IGA 0.5 0.0 - 14.9 [facility] Gliadin IGG 8.9 0.0 - 14.9 [facility] Specimen Narrative Performed At This result has an attachment that is n ot available. Performing Organization Address City/[facility] Ph one Number MAIN LAB [address] [facility] [place] [address] documented in this encounter Visit Diagnoses Diagnosis Age-related osteoporosis without curren t pathological fracture Senile osteoporosis Closed compression fracture of L1 lumba r vertebra, sequela documented in this encounter
--- OUTSIDE RECORDS SUMMARY | 2020-02-02 19:34 | XMS REPORT | Encounter Summary ---
Author Author [facility] Organization [facility] Address Unknown Phone Unavailable Care Team Providers Care Med Surg Rn Name Role Phone Christina Black RN Unavailable [...] Date Type Department Janie Myers MD [address] [facility] [address] [place] [address] [phone] Age-related osteoporosis without current pathological fracture; Closed compression fracture of body of L1 vertebra (HCC) 11/21/2019 Orders Only [facility] [address] [place] [address] Social History Date Tobacco Use Types Packs/Day [...] as of this encounter Visit Diagnoses Diagnosis Age-related osteoporosis without curren t pathological fracture Senile osteoporosis Closed compression fracture of body of L1 vertebra (HCC) documented in this encounter
--- OUTSIDE RECORDS SUMMARY | 2020-02-02 19:34 | XMS REPORT | Encounter Summary ---
Author Author [facility] Organization [facility] Address Unknown Phone Unavailable Care Team Providers Care Mica Builder Name Role Phone Christina Black RN Unavailable [...] Demarco MD PCP Reason for Referral * Radiology Services (Routine) Referred By Contact Referred To Contact Status Reason Specialty Diagnoses / [place] [address] [place] [address] New Request Radiology Diagnoses Low back pain with sciatica, sciatica laterality unspecified, unspecified back pain laterality, unspecified chronicity P rocedures FLUORO GUIDANCE FOR INJ RAD Reason for Visit * Radiology Services (Routine) Referred By Contact Referred To Contact Status Reason Specialty Diagnoses / [place] [address] [place] [address] New Request Radiology Diagnoses Low back pain with sciatica, sciatica laterality unspecified, unspecified back pain laterality, unspecified chronicity P rocedures FLUORO GUIDANCE FOR INJ RAD Encounter Details Care Team Description Date [place] [address] [place] [address] [phone] 11/18/2019 [facility] [address] [address] Social History Date Tobacco Use Types Packs/Day [...] Date End Date Medication Sig Dispensed Refills 01/31/2018 baclofen (LIORESAL) 20 mg TAKE 1 TABLET 3 tablet BY MOUTH TWICE DAILY WITH FOOD OR MILK 08/29/2018 buPROPion XL (WELLBUTRIN Take 150 mg 0 XL) 150 mg tablet by mouth. cholecalciferol (VITAMIN Take 0 D-3) 1,000 units tablet 3,000-4,000 Units by mouth daily. Cyanocobalamin 1,[address] 1,000 0 subl mcg under tongue. 08/26/2019 diclofenac (VOLTAREN) 1 % Apply two g 1 Tube 5 topical gel topically to affected area four times daily. diphenhydramine HCl Take by 0 (BENADRYL ALLERGY PO) mouth at bedtime daily. 2 tabs at hs 06/29/2016 divalproex (DEPAKOTE ER) 1,000 mg at 0 500 mg ER tablet bedtime daily. estradiol (ESTRACE) 2 mg Take 2 mg [...] % topical amount to cream affected area loratadine (CLARITIN) 10 Take 10 mg by 0 mg tablet mouth every morning. 10/22/2014 magnesium oxide 400 mg Take 1 Cap by 30 Cap 1 cap mouth daily. MULTIVITAMIN PO Take by 0 mouth. 07/03/[address] 0 (PROTONIX) 20 mg tablet vit A/vit C/vit Take by 0 E/zinc/copper (OCUVITE mouth. PRESERVISION PO) 10/16/2019 11/21/2019 traMADoL (ULTRAM) 50 mg Take one 30 tablet 0 tablet tablet by mouth every 8 hours as needed for Pain. documented as of this encounter Plan of Treatment Not on filedocumented as of this encounter Procedures Comments Procedure Name Priority Date/Time Associated Diag nosis FLUORO GUIDANCE FOR INJ Routine 11/18/2019 Low ba ck pain with RAD 3:18 PM CDT sciatica, sciatica laterality unspecified, unspecified back pain laterality, unspecified chronicity documented in this encounter Results * FLUORO GUIDANCE FOR INJ RAD (11/18/2019 3:18 PM CDT) Specimen Narrative Performed At This order has been auto finalized and does not conta in a result. [facility] Performing Organization Address City/[place]/[facility] Ph one Number [facility] documented in this encounter Visit Diagnoses Diagnosis Low back pain with sciatica, sciatica l aterality unspecified, unspecified back pain laterality, unspecified chronicity documented in this encounter
--- OUTSIDE RECORDS SUMMARY | 2020-02-02 19:34 | XMS REPORT | Encounter Summary ---
Author Author [facility] Organization [facility] Address Unknown Phone Unavailable Care Team Providers Care Hall Manager Name Role Phone Christina Black RN Unavailable [...] Contact Status Reason Specialty Diagnoses / Procedures Janie Myers MD [address] [facility] [address] [place] [address] New Request Radiology Diagnoses Age-related osteoporosis without current pathological fracture P rocedures BONE DENSITY SPINE/HIP Reason for Visit * Reason Comments Osteoporosis * Consult, Test & Treat (Routine) Referred By Contact Referred To Contact Status Reason Specialty Diagnoses / [place] [address] [place] [address] [facility] [address] [place] [address] No Auth Needed Specialty Services Endocrinology, Diagnoses Required Metabolism & Closed compression 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) Encounter Details Care Team Description [place] [address] [place] [address] [phone] Janie Myers MD [address] [facility] [address] [place] [address] Age-related osteoporosis without current pathological fracture (Primary Dx); Closed compression fracture of L1 lumbar vertebra, sequela; Chronic fatigue; Gastroesophageal reflux disease, esophagitis presence not specified; Intolerance of oral bisphosphonate therapy 11/18/2019 Office Visit [facility] [address] [place] [address] Social History Date Tobacco Use Types Packs/Day [...] / COVID-19? documented as of this encounter Last Filed Vital Signs Reading Time Taken Comments Vital Sign - - Blood Pressure - - Pulse - - Temperature - - Respiratory Rate - - Oxygen Saturation - - Inhaled Oxygen Concentration 68.9 kg (152 lb) 11/18/2019 10:04 AM CDT Weight 162.6 cm (5' 4") 11/18/2019 10:04 AM CDT Height 26.09 11/18/2019 10:04 AM CDT Body Mass Index documented in this [...] this encounter Patient Instructions * Patient Instructions* Janie Myers MD - 11/18/2019 10:20 AM CDT It was great to see you today. Issues we are addressing today: Osteoporosis Our plan: Labs today when at [facility] Calcium via diet + 600mg supplement per day Vitamin D supplementation Daily weight bearing exercise - 30 minutes per day - as tolerated Fall prevention We will likely proceed with Reclast 5mg IV annually x 3 years Risks associated with Reclast: Flu like syndrome -- Tylenol 500mg 3x per day - day of infusion and then for 3 days Osteonecrosis of the jaw -- trouble healing after dental surgery -- very unlik martha issue for you given dentures Atypical hip fracture -- very rare -- benefit of medication outweighs risk of this concern We will contact you with testing results via phone. If you are signed up for "my chart", we will release results to you electronical ly. Please call my nurse between appointments with any issues -- Dasha at [phone]. Please call my nurse if you are having any issues scheduling your appointment . Please let Dasha know if any results are unclear; I will call you personally to discuss further. If you had to wait on me today, my sincerest apologies. My goal in every clinic is to run right on time; however, on occasion, I get behind in clinic due to un expected issues with patients. Your satisfaction with the care you received today is of utmost importance. Ple ase contact me directly via email if there are any issues: [email or web address]. Again, it was great to see you today. Roosevelt, Janie Myers MD FallPrevention Falls often occur due to slipping, tripping or losing your balance. Millions of people fall every year and injure themselves.Here are ways to reduce your risk of falling again. Think about your fall, was there anything that caused your fall that can be f ixed, removed, or replaced? Make your home safe by keeping walkways clear of objects you may trip over, s uch as electric cords. Use non-slip pads under rugs. Don't use area rugs or small throw rugs. Use non-slip mats in bathtubs and showers. Install handrails and lights on staircases. The handrails should be on both s ides of the stairs. Don't walk in poorly lit areas. Don't stand on chairs or wobbly ladders. Use caution when reaching overhead or looking upward.This position can caus e a loss of balance. Be sure your shoes fit properly, have non-slip bottoms and are in good condit ion. Wear shoes both inside and out. Don't go barefoot or wear slippers. Be cautious when going up and down stairs, curbs, and when walking on uneven sidewalks. If your balance is poor, consider using a cane or walker. If your fall was related to alcohol use, stop or limit alcohol intake. If your fall was related to use of sleeping medicines, talk to your healthcar e provider about this.You may need to reduce your dosage at bedtime if you shweta gary during the night to go to the bathroom. To reduce the need for nighttime bathroom trips: ? Don't drink fluids for several hours before going to bed ? Empty your bladder before going to bed ? Men can keep a urinal at the bedside Stay as active as you can. Balance, flexibility, strength, and endurance all come from exercise. They all play a role in preventing falls. Ask your healthcar e provider which types of activity are right for you. Get your vision checked on a regular basis. If you have pets, know where they are before you stand up or walk so you don' t trip over them. Use night lights. Go over all your medicines with a pharmacist or other healthcare provider to see if any of them could make you more likely to fall. [employer] last reviewed this educational content on 09/16/201719998614-8714 [employer]. [address] [place] [address] 7. All rights reserved. This information is not intended as a substitute for pro fessional medical care. Always follow your healthcare professional's instruction s. documented in this encounter Progress Notes * Dasha Anaya RN - 11/18/2019 10:20 AM CDT Travel screening completed. Obtained patient's verbal consent to treat them and [facility] this [facility]health visit during the Coronavirus Public [facility] Emergency Pt could not perform vitals with home monitoring device. Reports recent BP with new provider was 130/80. Pt rates pain at 6 out 10 related to chronic back pain. Last DEXA report has been scanned to Outside Records tab. * Janie Myers MD - 11/18/2019 10:20 AM CDT Telehealth Visit Note Date of Service: 11/18/2019 Subjective: Obtained patient's verbal consent to treat them and [facility] via this telehealth visit during the Coronavirus Public [facility] Emergency Sydnie Huffman is a 63 y.o. female. PCP: Rubina Demarco History of Present Illness 1. Osteoporosis: Current treatment: none Prior treatments: Fosamax (2 months) and Boniva (3 weeks) / could not tolera te due to severe GERD. Calcium: Green leafy vegetables + cheese + 1200mg per day Vitamin D: Taking vitamin D3 to 3000 to 4000IU Weight bearing exercise: Engaged in PT / will start hydrotherapy after epidu ral Fracture history: L1 compression fracture with ongoing back pain / 9 -- fall on left side with humerus fracture + L1 compression fracture Interval fractures: n/a Interval falls: Notes frequent "stumbles" / balance issues since C5-C7 fusio n Last dental exam: Dentures in place Groin pain: Risk factors: Menopause: 39 KIRK / left one ovary; estrace therapy Medications: One prior epidural injection in February 2019 / prior trigger point injections in cervical region / Protonix 40mg x 2 to 3 years Nephrolithiasis: none Medical History: Diagnosis Date Abnormal involuntary movement Altered mental status Arthritis Bleeding disorder (HCC) Bone disease Convulsion (HCC) Disorganized thinking Fibromyalgia Generalized headaches Heart palpitations Memory loss Neuropathy Other dysphagia 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 Stomach disorder Ulcer Surgical History: Procedure Laterality Date TONSILLECTOMY 1965 SALIVARY GLAND SURGERY 1972 salvilary duct stones OVARIAN CYST SURGERY 1976 CATARACT REMOVAL 2009 BARTHOLIN GLAND CYST EXCISION BLADDER SURGERY COLONOSCOPY GALLBLADDER SURGERY N/A bladder surg HX APPENDECTOMY HX HEART CATHETERIZATION HX HYSTERECTOMY Family History Problem Relation Age of Onset Dementia Mother Hypertension Mother Neuropathy Mother Stroke Mother Thyroid Disease Mother Cancer Father Hypertension Father Seizures Father Cancer Sister Thyroid Disease Sister Cancer Son Migraines Daughter Stroke Maternal Grandmother Stroke Paternal Grandmother Thyroid Disease Brother Social History Socioeconomic History Marital status: Single Spouse name: Not on file Number of children: Not on file Years of education: Not on file Highest education level: Not on file Occupational History Not on file Tobacco Use Smoking status: Former Smoker Packs/day: 1.00 Years: 43.00 Pack years: 43.00 Types: Cigarettes Last attempt to quit: 05/23/2019 Years since quittin.4 Smokeless tobacco: Never Used Substance and Sexual Activity Alcohol use: No Drug use: No Sexual activity: Not on file Other Topics Concern Not on file Social History Narrative Not on file Home is in [place]. [place]. Lost a son at to cancer. Significant psychological strain associated with hi s passing. 4 children in total 1 son - passed - September 2015 2 sons - [place] / [place] 1 daughter - [place] Disability related to cervical neck pain. Fibromyalgia. Cervical disease. [employer] [facility] [employer] [address] [employer]. Review of Systems 20# weight loss. Lactose intolerance. Back pain. GERD. Notes bloating with bread. Notes IBS after surgery. Notes itchiness of head. Anxiety much improved as compared to when under stress with son's cancer dx. Sees a psychologist. Sees a psychiatrist. The remainder of the comprehensive 10 point ROS is negative. Objective: acetaminophen (TYLENOL ARTHRITIS PO) Take by mouth. baclofen (LIORESAL) 20 mg tablet TAKE 1 TABLET BY MOUTH TWICE DAILY WITH BARAK D OR MILK buPROPion XL (WELLBUTRIN XL) 150 mg tablet Take 300 mg by mouth. cetirizine (ZYRTEC) 10 mg tablet Take 10 mg by mouth daily. cholecalciferol (VITAMIN D-3) 1,000 units tablet Take 2,000 Units by mouth d aily. Pt states taking 2000 units daily cyanocobalamin (VITAMIN B-12, RUBRAMIN) 1,000 mcg/mL injection Inject 1 mL t o area(s) as directed every 30 days. Pt states she takes 5000 mcg SubQ daily. Cyanocobalamin 1,[address] 1,200 mcg under tongue. cyclobenzaprine (FLEXERIL) 10 mg tablet TAKE ONE TABLET BY MOUTH TWICE DAILY diazePAM (VALIUM) 5 mg tablet Take 1 tablet by mouth as Needed for Anxiety ( Take 1 tablet by mouth 45 minutes before procedure for anxiety, if needed may ta ke 2nd tablet just before procedure. 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 diclofenac (VOLTAREN) 1 % topical gel Apply two g topically to affected area four times daily. diphenhydramine HCl (BENADRYL ALLERGY PO) Take by mouth at bedtime daily. 2 tabs at hs divalproex (DEPAKOTE ER) 500 mg ER tablet 1,000 mg at bedtime daily. DIVALPROEX SODIUM (DEPAKOTE PO) Take 1,000 mg by mouth at bedtime daily. ergocalciferol (vitamin D2) (VITAMIN D PO) Take by mouth. estradiol (ESTRACE) 2 mg tablet Take 2 mg by mouth every morning. estradiol(+) (VAGIFEM) 10 mcg vaginal tablet Insert or Apply 10 mcg to vagin al area twice weekly. Insert one tablet vaginally daily for two weeks; then inse rt one tablet twice weekly. fluticasone (FLOVENT HFA) 110 mcg/actuation inhaler Inhale 2 puffs by mouth into the lungs twice daily. gabapentin (NEURONTIN) 300 mg capsule Take one capsule by mouth twice daily. hydrOXYzine (ATARAX) 10 mg tablet Take 10 mg by mouth three times daily as n eeded for Itching. ibuprofen (MOTRIN) 600 mg tablet Take 600 mg by mouth every 6 hours as neede d for Pain. Lactobacillus rhamnosus GG (LACTOBACILLUS RHAMNOSUS (GG)) 15 billion cell cp SP Take by mouth daily with breakfast. levomilnacipran (FETZIMA) 120 mg Cs24 Take 120 mg by mouth daily. lidocaine-prilocaine (EMLA) 2.5-2.5 % topical cream apply small amount to af fected area loratadine (CLARITIN) 10 mg tablet magnesium oxide 400 mg cap Take 1 Cap by mouth daily. (Patient taking differ ently: Take 500 mg by mouth as directed. Takes one every morning. May also take as needed for headache.) MELATONIN PO Take 5 mg by mouth at bedtime daily. mirabegron(+) ER (MYRBETRIQ ER) 25 mg tablet Take 25 mg by mouth daily. MULTIVITAMIN PO Take by mouth. oxybutynin XL (DITROPAN XL) 10 mg tablet Take 10 mg by mouth daily. pantoprazole DR (PROTONIX) 20 mg tablet QNASL 80 mcg/actuation nasal spray traMADoL (ULTRAM) 50 mg tablet Take one tablet by mouth every 8 hours as nee ded for Pain. vit A/vit C/vit E/zinc/copper (OCUVITE PRESERVISION PO) Take by mouth. There were no vitals filed for this visit. There is no height or weight on file to calculate BMI. Wt Readings from Last 5 Encounters: 11/18/19 68.9 kg (152 lb) 09/25/19 72.6 kg (160 lb) 07/16/19 72.8 kg (160 lb 6.4 oz) 02/25/19 77.1 kg (170 lb) 02/12/19 77.1 kg (170 lb) Physical Exam Nursing note reviewed. Constitutional: Appearance: Normal appearance. HENT: Head: Normocephalic and atraumatic. Eyes: Extraocular Movements: Extraocular movements intact. Conjunctiva/sclera: Conjunctivae normal. Pulmonary: Effort: Pulmonary effort is normal. No respiratory distress. Neurological: General: No focal deficit present. Mental Status: She is oriented to person, place, and time. Psychiatric: Mood and Affect: Mood normal. Behavior: Behavior normal. Thought Content: Thought content normal. Judgment: Judgment normal. L-spine xray 07.16.2019: 1. There has been interval progression of compression fracture involving the superior L1 vertebral body endplate since 05/23/2019, with now approximately 30% height loss. Unchanged Schmorl's node invaginating the superior T12 vertebral body endplate, with perhaps slightly increased wedging since prior CT. Moderate lower thoracic degenerative disc disease with mild spondylosis in the remaining lumbar spine. 2. Grade 1 anterolisthesis of L5 on S1. Moderate lower lumbar facet osteoarthritis. Surgical clips right upper quadrant. Mild left convex thoracolumbar curve. Osteopenia. Finalized by Bernardo Lopez M.D. on 07/16/2019 4:02 PM. Dictated by Bernardo Lopez M.D. on 07/16/2019 3:44 PM. Outside records were reviewed today with summary as follows: Assessment: 1. Osteoporosis 2. Fragility fractures: Left humerous + L1 compression fracture - from fall at standing height 3. GERD 4. Intolerance to oral bisphosphonate therapy 5. H/o tobacco use disorder - stopped 6. On HRT Plan: Labs today as per below. Pending lab results, will likely proceed with Reclast 5mg IV annually x 3 years Orders Placed This Encounter COMPREHENSIVE METABOLIC PANEL TSH WITH FREE T4 REFLEX 25-OH VITAMIN D (D2 + D3) PHOSPHORUS PARATHYROID HORMONE CBC AND DIFF (Today) CELIAC SCREEN today GLIADIN, DEAMIDATED IGA Patient Instructions It was great to see you today. Issues we are addressing today: Osteoporosis Our plan: Labs today when at [facility] Calcium via diet + 600mg supplement per day Vitamin D supplementation Daily weight bearing exercise - 30 minutes per day - as tolerated Fall prevention We will likely proceed We will contact you with testing results via phone. If you are signed up for "my chart", we will release results to you electronical ly. Please call my nurse between appointments with any issues -- Dasha at [phone]. Please call my nurse if you are having any issues scheduling your appointment . Please let Dasha know if any results are unclear; I will call you personally to discuss further. If you had to wait on me today, my sincerest apologies. My goal in every clinic is to run right on time; however, on occasion, I get behind in clinic due to un expected issues with patients. Your satisfaction with the care you received today is of utmost importance. Ple ase contact me directly via email if there are any issues: [email or web address]. Again, it was great to see you today. Best, Janie Myers MD FallPrevention Falls often occur due to slipping, tripping or losing your balance. Millions of people fall every year and injure themselves.Here are ways to reduce your risk of falling again. Think about your fall, was there anything that caused your fall that can be f ixed, removed, or replaced? Make your home safe by keeping walkways clear of objects you may trip over, s uch as electric cords. Use non-slip pads under rugs. Don't use area rugs or small throw rugs. Use non-slip mats in bathtubs and showers. Install handrails and lights on staircases. The handrails should be on both s ides of the stairs. Don't walk in poorly lit areas. Don't stand on chairs or wobbly ladders. Use caution when reaching overhead or looking upward.This position can caus e a loss of balance. Be sure your shoes fit properly, have non-slip bottoms and are in good condit ion. Wear shoes both inside and out. Don't go barefoot or wear slippers. Be cautious when going up and down stairs, curbs, and when walking on uneven sidewalks. If your balance is poor, consider using a cane or walker. If your fall was related to alcohol use, stop or limit alcohol intake. If your fall was related to use of sleeping medicines, talk to your healthcar e provider about this.You may need to reduce your dosage at bedtime if you shweta gary during the night to go to the bathroom. To reduce the need for nighttime bathroom trips: ? Don't drink fluids for several hours before going to bed ? Empty your bladder before going to bed ? Men can keep a urinal at the bedside Stay as active as you can. Balance, flexibility, strength, and endurance all come from exercise. They all play a role in preventing falls. Ask your healthcar e provider which types of activity are right for you. Get your vision checked on a regular basis. If you have pets, know where they are before you stand up or walk so you don' t trip over them. Use night lights. Go over all your medicines with a pharmacist or other healthcare provider to see if any of them could make you more likely to fall. [employer] last reviewed this educational content on 09/16/201719991093-6573 [employer]. [address] [place] [address], [place], [place] [address]. All rights reserved. This information is not intended as a substitute for pro fessional medical care. Always follow your healthcare professional's instruction s. Future Appointments Date Time Provider Department Center 11/18/2019 10:20 AM Janie Myers MD [facility] 11/18/2019 2:45 PM Ger Cain MD [facility] Previsit: 9 minutes Visit: 34 minutes Postvisit: 19 minutes Time 62 minutes spent with patient on counseling and coordinating care. This time in cluded discussion of medical issues, interpretation of data and educating patien t on condition and treatment options (and potential risks and benefits). MDM - high: Outside studies reviewed and summarized. Lab ordered. Radiology ordered. documented in this encounter Plan of Treatment Order Schedule Name Type Priority Associated Diag noses Expected: 11/17/2020 (Approximate), Expi res: 05/19/2021 BONE DENSITY SPINE/HIP Imaging Routine Age-rel ated osteoporosis without current pathological fracture documented as of this encounter Results * GLIADIN, DEAMIDATED IGA (11/20/2019) Pathologist [facility] Gliadin IGA 0.5 0.0 - 14.9 [facility] Gliadin IGG 8.9 0.0 - 14.9 [facility] Specimen Narrative Performed At This result has an attachment that is n ot available. Performing Organization Address City/[facility] Ph one Number MAIN LAB [address] [place] [address] * CELIAC SCREEN (11/20/2019) Pathologist [facility] TTG IGG <0.8 0.0 - 14.9 [facility]IN [facility] TTG IgA <0.5 0.0 - 14.9 [facility]IN [facility] Endomysial IGA Negative MAIN LAB Titer Specimen Blood Narrative Performed At This result has an attachment that is n ot available. Performing Organization Address City/State/[facility] Ph one Number MAIN LAB [address] [place] [address] * CBC AND DIFF (11/20/2019) White Blood [...] is n ot available. Performing Organization Address [facility] Number [facility] MA[facility] [address] [place] [address] * PHOSPHORUS (11/20/2019) Phosphorus 3.6 2.5 - 4.5 OTHER OUTSIDE LAB Specimen Blood - Blood Narrative Performed At This result has an attachment that is n ot available. Performing Organization Address City/State/Zipcode Ph one Number OTHER OUTSIDE LAB * 25-OH VITAMIN D (D2 + D3) (11/20/2019) Vitamin 49.91 OTHER OUTSIDE D(25-OH)Total LAB Specimen Blood - Blood Narrative Performed At This result has an attachment that is n ot available. Performing Organization Address City/State/Zipcode Ph one Number OTHER OUTSIDE LAB * TSH WITH FREE T4 REFLEX (11/20/2019) [...] eGFR Non 101 >59 OTHER OUTSIDE LAB [place] eGFR OTHER OUTSIDE [place] [facility] Anion Gap 1.9 1.1 - 2.5 OTHER OUTSIDE LAB Specimen Blood - Blood Narrative Performed At This result has an attachment that is n ot available. Performing Organization Address City/State/Zipcode Ph one Number OTHER OUTSIDE LAB documented in this encounter Visit Diagnoses Diagnosis Age-related osteoporosis without curren t pathological fracture Senile osteoporosis Closed compression fracture of L1 lumba r vertebra, sequela Chronic fatigue Other malaise and fatigue Gastroesophageal reflux disease, esopha gitis presence not specified Intolerance of oral bisphosphonate ther apy documented in this encounter
--- OUTSIDE RECORDS SUMMARY | 2020-02-02 19:34 | XMS REPORT | Encounter Summary ---
Author Author [facility] Organization [facility] Address Unknown Phone Unavailable Care Team Providers Care Public Stenographer Name Role Phone Christina Black RN Unavailable [...] Details Care Team Description Date Type Department 11/18/2019 Travel Social History Date Tobacco Use Types Packs/Day [...]
--- OUTSIDE RECORDS SUMMARY | 2020-02-02 19:34 | XMS REPORT | Encounter Summary ---
Author Author [facility] Organization [facility] Address Unknown Phone Unavailable Care Team Providers Care Academic Advisor Name Role Phone Christina Black RN Unavailable Unavailable Tia Levi RN Unavailable Unavailable Ismael Mena MD Unavailable George Gleason MD Unavailable Lobito Blum MD Unavailable Reyes Tee MD Unavailable Unavailable Jonas Torres DO Unavailable Emergency, Nurse RN Unavailable Unavailable Emiyl Diez RN Unavailable Unavailable Yoselin Bradley RN Unavailable Unavailable Lauri Baldwin MD Unavailable Gabriel Wilson MD Unavailable Unavailable Elif Gallardo APRN PCP Mariposa Dougherty MD Unavailable Victoriano Loja MD Unavailable Reason for Referral * Consult, Test & Treat Referred By Contact Referred To Contact Status Reason Specialty Diagnoses / [place] [address] [place] [address] ORTHOPAEDIC SPECIALIST OF [address] [place] [address] Closed Specialty Services Diagnoses Required Mid back pain Chronic bilateral low back pain without sciatica Myofascial pain Encounter Details Care Team Description Date [place] [address] [place] [address] [phone] Mid back pain (Primary Dx); Chronic bilateral low back pain without sciatica; Myofascial pain 11/04/2019 Orders Only [facility] [address] [facility] [address] [place] [address] Social History Date Tobacco Use Types Packs/Day [...] Name Type Priority Associated Diag noses Ordered: 11/04/2019 AMB REFERRAL TO PHYSICAL Outpatient Routine Mid b ack pain OR OCCUPATIONAL THERAPY Referral Chronic bilate ral low back pain without sciatica Myofascial pain documented as of this encounter Visit Diagnoses Diagnosis Mid back pain Backache, unspecified Chronic bilateral low back pain without sciatica Myofascial pain Mylagia and myositis, unspecified documented in this encounter
--- OUTSIDE RECORDS SUMMARY | 2020-02-02 19:34 | XMS REPORT | Encounter Summary ---
Author Author [facility] Organization [facility] Address Unknown Phone Unavailable Care Team Providers Care Javascript Front End Developer Name Role Phone Christina Black RN [...] MD PCP Reason for Visit * Reason Comments Procedure * Pain Authorization (Routine) Referred By Contact Referred To Contact Status Reason Specialty Diagnoses / [place] [address] [place] [address] Asc [facility] [facility]p [address] [place] [address] No Auth Needed Diagnoses Lumbar radiculopathy P rocedures [facility] INJECT INTERLAM LMBR/SAC Encounter Details Care Team Description Date [place] [address] [place] [address] Lumbar radiculopathy 11/18/2019 Procedure visit [facility] [address] [address] Social History Date Tobacco Use Types Packs/Day [...] 11/18/2019 2:37 PM CDT Body Mass Index documented in [...] encounter Patient Instructions * Patient Instructions* Emily Laureano BSN - 11/18/2019 2:45 PM CDT Procedure Completed Today: Lumbar Epidural [...] report this occurrence to a nurse at [phone]. If you are calling after 4:00 p.m., on weekends or holidays please call [phone] and ask to have the resident physician director of business continuity for the physician p mai or go to your local emergency room. [...] medications were used: Lidocaine , Triamcinolone and Contrast Dy e documented in this encounter Progress Notes * Ger Cain MD - 11/18/2019 2:45 PM CDT [facility] INTERVENTIONAL PAIN PROCEDURE HISTORY AND PHYSICAL Chief Complaint Patient presents with Procedure HISTORY OF PRESENT ILLNESS: Sydnie Huffman is [...] Ulcer Surgical History: Procedure Laterality Date TONSILLECTOMY 1964 SALIVARY GLAND SURGERY 1971 salvilary duct stones [...] Narrative Not on file Allergies Allergen Reactions Dilaudid [Hydromorphone] RASH Iodine HIVES topical Morphine HIVES Lortab [Hydrocodone-Acetaminophen] ITCHING Vitals: 11/18/19 1520 11/18/19 1526 11/18/19 1531 11/18/19 1536 BP: (!) 131/92 (!) 141/71 (!) 140/77 (!) 143/82 BP Source: Patient Position: Pulse: Resp: Temp: TempSrc: SpO2: 99% 99% 99% 99% Weight: Height: PainSc: REVIEW OF SYSTEMS: 10 point ROS obtained and negative except for back pain PHYSICAL EXAM: General: 63 y.o. female appears stated age, in no acute distress HEENT: Normocephalic, atraumatic Neck: No thyroidmegaly Cardiovascular: Well perfused Pulmonary: Unlabored respirations Extremities: No cyanosis, clubbing, or edema Skin: No lesions seen on exposed skin Psychiatric: Appropriate mood and affect Musculoskeletal: No atrophy. Neurologic: Antigravity strength in all extremities. CN II -XII grossly intact. Alert and oriented x 3. IMPRESSION: 1. Lumbar radiculopathy PLAN: L4-5 IL DOREEN documented in this encounter Procedure Notes * Ger Cain MD - 11/18/2019 2:45 PM CDT Associated Order(s): [facility] INJECT INTERLAM LMBR/SAC Pre-Procedure Diagnose(s): Lumbar radiculopathy Post-Procedure Diagnose(s): Lumbar radiculopathy Attending Surgeon: Ger Cain MD Anesthesia: Local Pre-Procedure Diagnosis: 1. Lumbar radiculopathy Post-Procedure Diagnosis: 1. Lumbar radiculopathy [facility] SP[facility] INJECT INTERLAM LMBR/SAC Procedure: [...] Patient has decided to proceed with treatment/procedure. Left Hand Protocol: Relevant documents: relevant documents present and [...] verify the c orrect patient, procedure, equipment, intelligence support officer and site/side marked as requ ired Procedures Details: Indications: pain Prep: chlorhexidine Patient position: prone Estimated Blood Loss: minimal Specimens: none Number of Levels: 1 Approach: midline Guidance: fluoroscopy Contrast: Procedure confirmed with contrast under live fluoroscopy. Needle and Epidural Catheter: tuohy Needle size: 20 G Injection procedure: Incremental injection and Negative aspiration for blood Patient tolerance: Patient tolerated the procedure well with no immediate compli cations. Pressure was applied, and hemostasis was accomplished. Comments: DESCRIPTION OF PROCEDURE: The procedure risks and benefits were expla ined to the patient and informed consent was obtained. The patient was position ed prone on the fluoroscopy table with a pillow under the abdomen to help reduce lumbar lordosis. Blood pressure cuff and oxygen saturation monitors were attac hed and the patient was monitored throughout the entire procedure. The L5 verte bral level was identified with the use of fluoroscopy in the AP view. The skin was prepped using Chlorhexadine and draped in aseptic fashion. The skin and sub cutaneous tissue were anesthetized using 3 mL of 1 percent lidocaine with a 27-g auge needle. A 3.5 inch 22-gauge Tuohy needle was slowly advanced using AP view towards the midline L5-S1 epidural space. The latter part of the needle advanc ement was guided with fluoroscopy in the lateral view. The epidural space was i dentified using loss of resistance technique. After negative aspiration, 1 mL o f Isovue contrast dye was injected. After epidural spread was seen, a solution containing 80 mg of triamcinolone and 2 mL of normal saline was injected in incr ements. The stylet was reinserted and the needle [...] Center for any of th e following Fever, chills, or night sweats. New onset of severe sharp pain. Any new upper or lower extremity weakness or numbness. Any questions regarding the procedure. Estimated blood loss: none or minimal Specimens: none Patient tolerated the procedure well with no immediate complications. Pressure w as applied, and hemostasis was accomplished. documented in this encounter Plan of Treatment Not on filedocumented as of this encounter Procedures Comments Procedure Name Priority Date/Time Associated Diag nosis MI NJX DX/THER SBST Routine 11/18/2019 Lumbar rad iculopathy INTRLMNR LMBR/SAC W/IMG 2:45 PM CDT GDN documented in this encounter Results * [facility] [...] nt has decided to proceed with treatment/procedure. Left Hand Protocol: Relevant documents: relevant documents present and [...] verify the correct patient, procedure, equipme nt, intelligence support officer and site/side marked as required Procedures Details: [...] oxygen saturation, and VAS were recorded in e chart. There were no complications. The patient tolerated the procedure well and was brought to recovery room for observation in sta ble condition and discharged with written discharge instructions. PLAN OF CARE: The patient is to [facility] in 6 weeks. The patient was advised to contact the [facility] for any of the following Fever, chills, or night sweats. New onset of severe sharp pain. Any new upper or lower extremity weakne ss or numbness. Any questions regarding the procedure. Performing Organization Address City/State/[facility] Ph one Number OTHER OUTSIDE LAB documented in this encounter Visit Diagnoses Diagnosis Lumbar radiculopathy Thoracic or lumbosacral neuritis or rad iculitis, unspecified documented in this encounter Administered Medications Action Date Dose Rate Site Medication Order MAR Action 11/18/2019 3:14 PM CDT 2.5 mL gadobenate dimeglumine (MULTIHANCE) Given injection 2.5 mL 2.5 mL, SEE ADMIN INSTRUCTIONS, ONCE, 1 dose, 11/18/19 at 1530, Route: Epidural NOTE: This is a HIGH ALERT Medication., 11/18/2019 3:13 PM CDT 80 mg triamcinolone acetonide (KENALOG-40) Given injection 80 mg 80 mg, Epidural, ONCE, 1 dose, 11/18/19 at 1530 documented in this encounter
--- OUTSIDE RECORDS SUMMARY | 2020-02-02 19:34 | XMS REPORT | Encounter Summary ---
Author Author [facility] Organization [facility] Address Unknown Phone Unavailable Care Team Providers Care Sexer Name Role Phone Christina Black RN Unavailable Unavailable Tia eLvi RN Unavailable Unavailable Ismael Mena MD Unavailable [...] * Reason Onset Date Comments Medication Question 11/21/2019 Encounter Details Care Team Description Date [place] [address] [place] [address] Medication Question 11/21/2019 Telephone [facility] [address] [place] [address] Social History Date Tobacco Use [...] Miscellaneous Notes * Telephone Encounter - Shira Bah, SURINDER - 11/21/2019 1:00 PM CDT Patient called requesting refill of her Tramadol. Last filled 10/16/2019 for 30 t ablets 0 refills. Will route for Dr. Cain review. Patient verbalized understand ing. documented in this encounter Plan of Treatment Not on filedocumented as of this encounter Visit Diagnoses Not on filedocumented in this encounter
--- OUTSIDE RECORDS SUMMARY | 2020-02-02 19:34 | XMS REPORT | Encounter Summary ---
Author Author [facility] Organization [facility] Address Unknown Phone Unavailable Care Team Providers Care Vertica Architect Name Role Phone Christina Black RN Unavailable [...] Date Type Department Janie Myers MD [address] [facility] [address] [place] [address] [phone] Age-related osteoporosis without current pathological fracture; Closed compression fracture of L1 lumbar vertebra, sequela; Chronic fatigue 11/20/2019 Orders Only [facility] [address] [place] [address] Social History Date Tobacco Use Types Packs/Day [...] Procedure Name Priority Date/Time Associated Diag nosis TSH WITH FREE T4 REFLEX Routine 11/20/2019 Age-re lated osteoporosis without current pathological fracture Closed compression fracture of L1 lumbar vertebra, sequela Chronic fatigue PARATHYROID HORMONE Routine 11/20/2019 Age-relate d osteoporosis [...] of L1 lumbar vertebra, sequela Chronic fatigue PHOSPHORUS Routine 11/20/2019 Age-related ost eoporosis without current pathological fracture Closed compression fracture of L1 lumbar vertebra, sequela COMPREHENSIVE METABOLIC Routine 11/20/2019 Age-re lated osteoporosis PANEL without current pathological fracture Closed compression fracture of L1 lumbar vertebra, sequela documented in this encounter Results * PHOSPHORUS (11/20/2019) Phosphorus 3.6 2.5 - [...] eGFR Non 101 >59 OTHER OUTSIDE LAB [place] eGFR OTHER OUTSIDE [place] LAB Anion Gap 1.9 1.1 - 2.5 [...] Performing Organization Address City/State/Zipcode Ph one Number [facility] [address] [place] [address] * 25-OH VITAMIN D (D2 + D3) [...] sequela Chronic fatigue Other malaise and fatigue documented in this encounter
--- OUTSIDE RECORDS SUMMARY | 2020-02-02 19:34 | XMS REPORT | Encounter Summary ---
Author Author [facility] Organization [facility] Address Unknown Phone Unavailable Care Team Providers Care Environmental Engineering Aide Name Role Phone Christina Black RN Unavailable [...] for Visit * Reason Onset Date Comments Lab Request 11/19/2019 Encounter Details Care Team Description Date Type Department Janie Myers MD [address] Orth[facility] [address] [place] [address] [phone] Lab Request 11/19/2019 Telephone [facility] [address] [place] [address] Social History Date Tobacco Use [...] Telephone Encounter - Dasha Anaya RN - 11/19/2019 3:02 PM CDT Pt LVM stating that Dr. Demarco's office will accept outside orders. Pt provided the following information for Dr. Demarco's office: # [phone] # [phone] Created pdf document for 8 lab orders and faxed via [employer]. Notified pt the orders have been faxed and confirmation rec'd that fax went thro [facility]. 3:07 PM 11/19/2019 Transmission Record Sent to: Dr. Demarco's Office - LAB ORDERS Phone: [phone] Billing information: '', '' Remote ID: [id number] Unique ID: "[id number]" Elapsed time: 4 minutes, 20 seconds. Used channel 3 on in room dining server "[id number]". No ANI data. No AOC data. Resulting status code (0/339; 0/0): Success Pages sent: 1 - 9 Delegate ID: "" * Telephone Encounter - Dasha Anaya RN - 11/19/2019 1:43 PM CDT Pt LVM stating that her epidural took longer than expected today. Pt would like to complete labs with Dr. Demarco's office. R/c and relayed pt should check with Dr. Demarco's office to determine if they will accept outside lab orders. If so, I would need fax# or I could sent to pt via [employer] for her to print and hand carry. Pt will call Dr. Demarco's office and let me know and also provide fax#. documented in this encounter Plan of Treatment Not on filedocumented as of this encounter Visit Diagnoses Not on filedocumented in this encounter
--- OUTSIDE RECORDS SUMMARY | 2020-02-02 19:34 | XMS REPORT | Encounter Summary ---
Author Author [facility] Organization [facility] Address Unknown Phone Unavailable Care Team Providers Care Electrical Laboratory Technician Name Role Phone Christina Black RN Unavailable [...] MD Unavailable Reason for Visit * Reason Onset Date Comments Appointment 11/07/2019 Earlier appt offere d Encounter Details Care Team Description Date Type Department Janie Myers MD [address] Orth[facility] [address] [place] [address] [phone] Appointment (Earlier appt offered) 11/07/[address] [facility] [address] [place] [address] Social History Date Tobacco Use [...] Telephone Encounter - Dasha Anaya RN - 11/13/2019 2:29 PM CDT Called to f/u on JEOVANNY request. Knit Goods Mender states she sees DEXA completed in October 2018; will fax to our Right Fax #. External results rec'd/routed to Dr. Myers via secure email. Original routed to [facility] to scan to chart. * Telephone Encounter - Dasha Anaya RN - 11/07/2019 2:54 PM CDT Spoke with pt to offer earlier appt date. Pt states she completed a bone density about a year ago; no treatment was rx'd a t that time. However, pt had tried fosamax and boniva about 3 months ago, and couldn't tolera te d/t nausea/vomiting. Offered pt telehealth appt, as she would not yet be due for repeat DEXA. Relayed I will request DEXA report from [facility]. Future Appointments Date Time Provider Department Center 11/18/2019 10:20 AM Janie Myers MD [facility] 11/18/2019 2:45 PM Ger Cain MD [facility] Called [facility] in [facility] [place] to obtain HIM Fax#. Fx# [phone] Faxed JEOVANNY request via [employer]ax [employer]. 3:18 PM 11/07/2019 Transmission Record Sent to: [facility] Phone: [phone] Billing information: '', '' Remote ID: [id number] Unique ID: "[id number]" Elapsed time: 1 minutes, 52 seconds. Used channel 9 on marble finisher "[id number]". No ANI data. No AOC data. Resulting status code (0/339; 0/0): Success Pages sent: 1 - 2 Delegate ID: "" documented in this encounter Plan of Treatment Not on filedocumented as of this encounter Visit Diagnoses Not on filedocumented in this encounter
--- OUTSIDE RECORDS SUMMARY | 2020-02-02 19:34 | XMS REPORT | Encounter Summary ---
Author Author [facility] Organization [facility] Address Unknown Phone Unavailable Care Team Providers Care Tank Stave Assembler Name Role Phone Christina Black RN Unavailable [...] Description Date [place] [address] [facility] [address] [place] [address] 11/18/2019 Telephone [facility] [address] [address] Social History Date Tobacco Use [...]
--- OUTSIDE RECORDS SUMMARY | 2020-02-02 19:35 | XMS REPORT | Encounter Summary ---
Author Author [facility] Organization [facility] Address Unknown Phone Unavailable Care Team Providers Care Obstetrics Gyn Name Role Phone Christina Black RN Unavailable [...] * Reason Onset Date Comments Care Coordination 10/21/2019 Encounter Details Care Team Description [place] [address] [facility] [address] [place], [place] [address] Care Coordination 10/21/[address] [facility] [address] [address] Social History Date Tobacco Use Types Packs/Day Years Used Quit: 05/23/2019 Former Smoker Cigarettes 1 43 Smokeless Tobacco: Never Used Drinks/Week oz/Week Comments Alcohol Use No Sex Assigned at Date Recorded Female 09/24/2019 10:51 AM CDT Date Recorded COVID-19 Exposure Response 09/24/2019 10:51 AM CDT In the last month, have you [...] Telephone Encounter - Shira Bah RN - 10/21/2019 9:07 AM CDT Patient called stating that her insurance [employer] may fax a form to fill out rega rding receiving her lift chair per provider order. Would also like her therapy o rder faxed to [facility] physical therapy. Will fax that today. Patient ve rbalized understanding. documented in this encounter Plan of Treatment Not on filedocumented as of this encounter Visit Diagnoses Not on filedocumented in this encounter
--- OUTSIDE RECORDS SUMMARY | 2020-02-02 19:35 | XMS REPORT | Encounter Summary ---
Author Author [facility] Organization [facility] Address Unknown Phone Unavailable Care Team Providers Care Hemodialysis Technician Name Role Phone Christina Black RN [...] Loja MD Unavailable Reason for Visit * Pain Authorization (Routine) Referred By Contact Referred To Contact Status Reason Specialty Diagnoses / [place] [address] [place] [address] Asc [address]p [address] [place] [address] No Auth Needed Diagnoses Lumbar radiculopathy P rocedures [facility] SPINE INJECT INTERLAM LMBR/SAC Encounter Details Care Team Description Date [place] [address] [place] [address] Canceled (Patient-Personal) 10/27/2019 [facility] ICC2 PP Encounter [address] [place] [address] Social History Date Tobacco Use Types Packs/Day [...] % topical amount to cream affected area 10/22/2014 magnesium oxide 400 mg Take 1 Cap by 30 Cap 1 cap mouth daily. MULTIVITAMIN PO Take by 0 mouth. 07/03/[address] 0 (PROTONIX) 20 mg tablet vit A/vit C/vit Take by 0 E/zinc/copper (OCUVITE mouth. PRESERVISION PO) 11/18/2019 acetaminophen (TYLENOL Take by 0 ARTHRITIS PO) mouth. 01/03/2018 11/18/2019 cetirizine (ZYRTEC) 10 mg Take 10 mg by 3 tablet mouth daily. 11/18/2019 cyanocobalamin (VITAMIN Inject 1 mL 0 B-12, RUBRAMIN) 1,000 to area(s) as mcg/mL injection directed every 30 days. Pt states she takes 5000 mcg SubQ daily. 03/22/2015 11/18/2019 cyclobenzaprine TAKE ONE 60 Tab 6 (FLEXERIL) 10 mg tablet TABLET BY MOUTH TWICE DAILY 10/05/2017 11/18/2019 diazePAM (VALIUM) 5 mg Take 1 tablet 2 tablet 0 tabletIndications: by mouth as anxiety Needed for Anxiety (Take 1 tablet by mouth 45 minutes before procedure for anxiety, if needed may take 2nd tablet just before procedure. Must have caterpillar driver.) for up to 2 doses. 11/18/2019 DIVALPROEX SODIUM Take 1,000 mg 0 (DEPAKOTE PO) by mouth at bedtime daily. 11/18/2019 ergocalciferol (vitamin Take by 0 D2) (VITAMIN D PO) mouth. 03/21/2019 11/18/2019 gabapentin (NEURONTIN) Take one 180 capsule 1 300 mg capsule capsule by mouth twice daily. 06/28/2016 11/18/2019 loratadine (CLARITIN) 10 0 mg tablet 11/18/2019 MELATONIN PO Take 5 mg by 0 mouth at bedtime daily. 11/18/2019 mirabegron(+) ER Take 25 mg by 0 (MYRBETRIQ ER) 25 mg mouth daily. tablet 01/29/2018 11/18/2019 oxybutynin XL (DITROPAN Take 10 mg by 99 XL) 10 mg tablet mouth daily. 07/04/2016 11/18/2019 QNASL 80 mcg/actuation 0 nasal spray 10/16/2019 11/21/2019 traMADoL (ULTRAM) 50 mg Take one 30 tablet 0 tablet tablet by mouth every 8 hours as needed for Pain. documented as of this encounter Plan of Treatment Not on filedocumented as of this encounter Procedures Comments Procedure Name Priority Date/Time Associated Diag nosis LA NJX DX/THER SBST Routine 11/18/2019 Lumbar rad [...] nt has decided to proceed with treatment/procedure. [place] Protocol: Relevant documents: relevant documents present and verified Test results: test results available an d properly labeled Imaging studies: imaging studies availa ble Required items: required blood products , implants, devices, and special equipment available Site marked: the operative site was laura huseyinlowell Patient identity confirmed: Patient danilo ntify confirmed verbally with patient. Time out: Immediately prior to procedur e a "time out" was called to verify the correct patient, procedure, equipme nt, youth accommodation support worker and site/side marked as required Procedures Details: Indications: pain Prep: chlorhexidine Patient position: prone Estimated Blood Loss: minimal Specimens: none Number of Levels: 1 Approach: midline Guidance: fluoroscopy Contrast: Procedure confirmed with cont rast under live fluoroscopy. Needle and Epidural Catheter: tuohy Needle size: 20 G Injection procedure: Incremental inject ion and Negative aspiration for blood Patient tolerance: Patient tolerated e procedure well with no immediate complications. [...] PLAN OF CARE: The patient is to [facility] in 6 weeks. The patient was advised to contact the [facility] for any of the following Fever, chills, or night sweats. New onset of severe sharp pain. Any new upper or lower extremity weakne ss or numbness. Any questions regarding the procedure. Performing Organization Address City/State/[place] Ph one Number OTHER OUTSIDE LAB documented in this encounter Visit Diagnoses Not on filedocumented in this encounter
--- OUTSIDE RECORDS SUMMARY | 2020-02-02 19:35 | XMS REPORT | Encounter Summary ---
Author Author [facility] Organization [facility] Address Unknown Phone Unavailable Care Team Providers Care Biomedical Instrument Technician Name Role Phone Christina Black RN [...] Description [place] [address] [place] [address] 11/04/2019 Orders Only [facility] [address] [place] [address] Social History Date Tobacco Use [...]
--- OUTSIDE RECORDS SUMMARY | 2020-02-02 19:35 | XMS REPORT | Encounter Summary ---
Author Author [facility] Organization [facility] Address Unknown Phone Unavailable Care Team Providers Care Fancy Needleworker Name Role Phone Christina Black RN Unavailable [...] * Reason Onset Date Comments Care Coordination 10/08/2019 Encounter Details Care Team Description [place] [address] [place] [address] Care Coordination 10/08/2019 Telephone [facility] [address] [place] [address] Social History Date Tobacco Use [...] Telephone Encounter - Shira Bah RN - 10/08/2019 11:41 AM CDT Patient called wanting to see if [facility] had clouded over her re cent images. It does not appear that images have been clouded over. Patient is t ouching back base with [facility] and see how this can be completed. 10/09/2019 Patient called confirming from [facility] that images hav e been clouded over. 10/10/2019 Patient called wanting to confirm again the LSpine imaging that was cl ouded over. Confirmed with patient that we have received the imaging. Patient wa nting Dr. Cain to review these results. Will let Dr. Cain know that these have been received. documented in this encounter Plan of Treatment Not on filedocumented as of this encounter Visit Diagnoses Not on filedocumented in this encounter
--- OUTSIDE RECORDS SUMMARY | 2020-02-02 19:35 | XMS REPORT | Encounter Summary ---
Author Author [facility] Organization [facility] Address Unknown Phone Unavailable Care Team Providers Care Textiles And Clothing Teacher Name Role Phone Christina Black RN Unavailable [...] Description [place] [address] [place] [address] Closed compression fracture of body of L 1 vertebra (HCC) (Primary Dx) 09/26/2019 Orders Only [facility] [address] [place] [address] Social History Date Tobacco Use [...] Name Type Priority Associated Diag noses Expected: 09/26/2019, Expires: 1 L SPINE AP & LATERAL Imaging Routine Closed co mpression fracture of body of L1 vertebra (HCC) documented as of this encounter Visit Diagnoses Diagnosis Closed compression fracture of body of L1 vertebra (HCC) documented in this encounter
--- OUTSIDE RECORDS SUMMARY | 2020-02-02 19:35 | XMS REPORT | Encounter Summary ---
Author Author [facility] Organization [facility] Address Unknown Phone Unavailable Care Team Providers Care Hospital Mortician Name Role Phone Christina Black RN Unavailable [...] * Reason Onset Date Comments Care Coordination 10/16/2019 Encounter Details Care Team Description [place] [address] [place] [address] Care Coordination 10/16/2019 Telephone [facility] [place] [address] [place] [address] Social History Date Tobacco Use [...] Telephone Encounter - Shira Bah RN - 10/16/2019 11:27 AM CDT Mailed order for lift chair to address on file. documented in this encounter Plan of Treatment Not on filedocumented as of this encounter Visit Diagnoses Not on filedocumented in this encounter
--- OUTSIDE RECORDS SUMMARY | 2020-02-02 19:35 | XMS REPORT | Encounter Summary ---
Author Author [facility] Organization [facility] Address Unknown Phone Unavailable Care Team Providers Care Sand Shoveler Name Role Phone Christina Black RN Unavailable [...] * Reason Onset Date Comments Care Coordination 10/01/2019 Encounter Details Care Team Description [place] [address] [place] [address] Care Coordination 10/01/2019 Telephone [facility] [address] [place] [address] Social History Date Tobacco Use [...] Telephone Encounter - Shira Bah RN - 10/01/2019 9:18 AM CDT Re-faxed orders to [facility] for X-rays per patient request. documented in this encounter Plan of Treatment Not on filedocumented as of this encounter Visit Diagnoses Not on filedocumented in this encounter
--- OUTSIDE RECORDS SUMMARY | 2020-02-02 19:35 | XMS REPORT | Encounter Summary ---
Author Author [facility] Organization [facility] Address Unknown Phone Unavailable Care Team Providers Care Database Developer Name Role Phone Christina Black RN [...] * Reason Onset Date Comments Care Coordination 11/04/2019 Encounter Details Care Team Description [place] [address] [place] [address] Care Coordination 11/04/2019 Telephone [facility] [address] [place] [address] Social History Date Tobacco Use [...] Telephone Encounter - Shira Bah RN - 11/04/2019 9:07 AM CDT Patient called requesting order to complete aquatic therapy. Requesting order to be sent to [facility] in [place], [place]. Their phone number is . Will fax order once placed. [phone]: Faxed order to number provided. documented in this encounter Plan of Treatment Not on filedocumented as of this encounter Visit Diagnoses Not on filedocumented in this encounter
--- OUTSIDE RECORDS SUMMARY | 2020-02-02 19:35 | XMS REPORT | Encounter Summary ---
Author Author [facility] Organization [facility] Address Unknown Phone Unavailable Care Team Providers Care Binder Chainstitch Name Role Phone Christina Black RN Unavailable Unavailable Tia Levi RN Unavailable Unavailable Ismael Mena MD Unavailable George Gleason MD Unavailable Lobito Blum MD Unavailable Reyes Tee MD Unavailable Unavailable Jonas Torres DO Unavailable Emergency, Nurse RN Unavailable Unavailable Emily Diez RN Unavailable Unavailable Yoselin Bradley RN Unavailable Unavailable Lauri Baldwin MD Unavailable Gabriel Wilson MD Unavailable Unavailable Elif Gallrado APRN PCP Mariposa Dougherty MD Unavailable Victoriano Loja MD Unavailable Reason for Visit * Reason Onset Date Comments Appointment 10/27/2019 Encounter Details Care Team Description Date [place] [address] [place] [address] Appointment 10/27/2019 Telephone [facility] [address] [place] [address] Social History Date Tobacco Use [...] Telephone Encounter - Shira Bah RN - 10/27/2019 7:48 AM CDT Patient called stating she will need to cancel her procedure today as she went t o her PCP on Sunday and was diagnosed with a sinus infection and was placed on Amoxacillin for 10 days. Will let provider know and get this rescheduled. documented in this encounter Plan of Treatment Not on filedocumented as of this encounter Visit Diagnoses Not on filedocumented in this encounter
--- OUTSIDE RECORDS SUMMARY | 2020-02-02 19:35 | XMS REPORT | Encounter Summary ---
Author Author [facility] Organization [facility] Address Unknown Phone Unavailable Care Team Providers Care Web Services Manager Name Role Phone Christina Black RN [...] Specialty Diagnoses / [place] [address] [place] [address] [facility] [place] [address] No Auth Needed Diagnoses Lumbar radiculopathy P rocedures KU AMB SPINE INJECT INTERLAM LMBR/SAC Reason for Visit * Reason Comments Pain Encounter Details Care Team Description Date [place] [address] [place] [address] [phone] Lumbar radiculopathy (Primary Dx) 10/16/2019 Office Visit [facility] [address] [facility] [address] [place] [address] Social History Date Tobacco Use Types Packs/Day [...] Progress Notes * Ger Cain MD - 10/16/2019 9:30 AM CDT Obtained patient's verbal consent to treat them and their agreement to [facility] policy and NPP via this telehealth visit during the Coronavirus Public [facility] Emergency Date of Service: 10/16/2019 Subjective: History of Present Illness Ms. Huffman is a 63-year-old female with history of L1 compression fracture, [facility] for follow-up on back pain. Patient previously had lumbar epidural in 2018, and this provided significant pain relief. She has had slowly increa sing pain since that time. She had had a fall and we ordered a radiographs. Ra diographs of been ordered and detailed below. There does not seem to be any pro gression in the compression fracture at L1. She continues have pain in the back with radiation into the legs. She is taking tramadol with some relief. She ta kes approximately 1 a day. She denies side effects with medication. Review of Systems Constitutional: Negative. HENT: Negative. Eyes: Negative. Respiratory: Negative. Cardiovascular: Negative. Gastrointestinal: Negative. Endocrine: Negative. Musculoskeletal: Positive for back pain. Skin: Negative. Neurological: Positive for weakness. All other systems reviewed and are negative. Objective: acetaminophen (TYLENOL ARTHRITIS PO) Take by mouth. alendronate (FOSAMAX) 70 mg tablet Take 70 mg by mouth every 7 days. Take at least 30 minutes before breakfast with plain water. Do not lie down for 30 chasity abi. baclofen (LIORESAL) 20 mg tablet TAKE 1 [...] 2nd tablet just before procedure. Must have fire truck driver.) for up to 2 doses. diclofenac [...] or weight on file to calculate BMI. Physical Exam Ortho Exam Unable to perform physical examination as this was telephone encounter Diagnostics: Radiographs lumbar spine were personally viewed and demonstrated 23% height loss at L1. This comparesto 26% height loss with prior radiographs. Assessment and Plan: 1. Lumbar radiculopathy KU AMB SPINE INJECT INTERLAM LMBR/SAC MISCELLANEOUS SUPPLY Ms. Huffman is a 63-year-old female who presents for follow-up on back pain. Hist ory and physical examination are consistent with lumbar radiculopathy and healin g L1 compression fracture. 1. Lifestyle modification. Recommend activity as tolerated. 2. Medication. I provided her with 30 tablets of tramadol. 3. Therapy. Continue home program. 4. Interventions. I recommend an L5-S1 interlaminar epidural steroid injection . I counseled her we can discuss further treatment options when she is seeing e ndocrinology. 5. Follow-up. Patient is well for procedure. Total time 11 minutes. Estimated counseling time 6 minutes. Counseled Ms. Jyothi hill regarding risks and benefits of injection. Oswestry Total Score:: (P) 78 documented in this encounter Plan of Treatment [...] nt has decided to proceed with treatment/procedure. [place] Protocol: Relevant documents: relevant documents present and [...] verify the correct patient, procedure, equipme nt, computer support specialist and site/side marked as required [...] PLAN OF CARE: The [facility]. The patient was advised to contact the [facility] for any of the following Fever, chills, or night sweats. New onset of severe sharp pain. Any new upper or lower extremity weakne ss or numbness. Any questions regarding the procedure. Performing Organization Address City/State/Zipcode Ph one Number OTHER OUTSIDE LAB documented in this encounter Visit Diagnoses Diagnosis Lumbar radiculopathy Thoracic or lumbosacral neuritis or rad iculitis, unspecified documented in this encounter
--- OUTSIDE RECORDS SUMMARY | 2020-02-02 19:35 | XMS REPORT | Encounter Summary ---
Author Author [facility] Organization [facility] Address Unknown Phone Unavailable Care Team Providers Care Aerial Survey Technician Name Role Phone Christina Black RN Unavailable Unavailable Tia Levi RN Unavailable Unavailable Ismael Mena MD Unavailable George Gleason MD Unavailable Lobito Blum MD Unavailable Reyes Tee MD Unavailable Unavailable Jonas Torres DO Unavailable Emergency, Nurse RN Unavailable Unavailable Emily Diez RN Unavailable Unavailable Yoselin Bradley RN Unavailable Unavailable Lauri Baldwin MD Unavailable Gabriel Wilson MD Unavailable Unavailable Elfi Gallardo APRN PCP Mariposa Dougherty MD Unavailable Victoriano Loja MD Unavailable Reason for Visit * Reason Onset Date Comments Care Coordination 10/20/2019 Encounter Details Care Team Description [place] [address] [place] [address] Care Coordination 10/20/2019 Telephone [facility] [address] [place] [address] Social History Date Tobacco Use [...] Telephone Encounter - Shira Bah RN - 10/20/2019 12:29 PM CDT Patient called to double check on the lift chair prescription. Confirmed with grace riojas that the prescription was mailed to address on file. Patient verbalized un derstanding. documented in this encounter Plan of Treatment Not on filedocumented as of this encounter Visit Diagnoses Not on filedocumented in this encounter
--- OUTSIDE RECORDS SUMMARY | 2020-02-02 19:35 | XMS REPORT | Encounter Summary ---
Author Author [facility] Organization [facility] Address Unknown Phone Unavailable Care Team Providers Care Box Truck Owner Operator Name Role Phone Christina Black RN Unavailable Unavailable Tia Levi RN Unavailable Unavailable Ismael Mena MD Unavailable George Gleason MD Unavailable Lobito Blum MD Unavailable Reyes Tee MD Unavailable Unavailable Jonas Torres DO Unavailable Emergency, Nurse RN Unavailable Unavailable Emily Diez RN Unavailable Unavailable Yoselin Bradley RN Unavailable Unavailable Lauri Baldwin MD Unavailable Gabriel Wilson MD Unavailable Unavailable Elif Galladro APRN PCP Mariposa Dougherty MD Unavailable Victoriano Loja MD Unavailable Reason for Visit * Reason Onset Date Comments Care Coordination 09/29/2019 Encounter Details Care Team Description [place] [address] [place] [address] Care Coordination 09/29/2019 Telephone [facility] [address] [place] [address] Social History Date Tobacco Use [...] Telephone Encounter - Shira Bah RN - 09/29/2019 8:54 AM CDT Faxed x-ray orders to [facility] in [place], [place]. Let patient kno w that they have been faxed. documented in this encounter Plan of Treatment Not on filedocumented as of this encounter Visit Diagnoses Not on filedocumented in this encounter
--- OUTSIDE RECORDS SUMMARY | 2020-02-02 19:35 | XMS REPORT | Encounter Summary ---
Author Author [facility] Organization [facility] Address Unknown Phone Unavailable Care Team Providers Care Fire Behavior Analyst Name Role Phone Christina Black RN Unavailable [...] Details Care Team Description Date Type Department 10/01/2019 [facility] [address] [place] [address] Social History Date Tobacco Use Types [...] (TYLENOL Take by 0 ARTHRITIS PO) mouth. 10/16/2019 alendronate (FOSAMAX) 70 Take 70 mg by 0 mg tablet mouth every 7 days. Take at least 30 minutes before breakfast with plain water. Do not lie down for 30 minutes. 01/03/2018 11/18/2019 cetirizine (ZYRTEC) 10 mg Take [...] 2nd tablet just before procedure. Must have scoop driver.) for up to 2 doses. 11/18/2019 [...] 11/18/2019 QNASL 80 mcg/actuation 0 nasal spray 09/26/2019 10/16/2019 traMADoL (ULTRAM) 50 mg Take one 25 tablet 0 tablet tablet by mouth every 8 hours as needed for Pain. documented as of this encounter Plan of Treatment Not on filedocumented as of this encounter Procedures Comments Procedure Name Priority Date/Time Associated Diag nosis GENERAL RAD L-SPINE Routine 10/01/2019 EXTERNAL IMAGING 12:00 AM CDT documented in this encounter Results * GENERAL RAD L-SPINE EXTERNAL IMAGING (10/01/2019 12:00 AM CDT) Specimen Narrative Performed At This order has been auto finalized and does not contain a result. documented in this encounter Visit Diagnoses Not on filedocumented in this encounter
--- OUTSIDE RECORDS SUMMARY | 2020-02-02 19:35 | XMS REPORT | Encounter Summary ---
Author Author [facility] Organization [facility] Address Unknown Phone Unavailable Care Team Providers Care Multimedia Specialist Name Role Phone Christina Black RN [...] * Reason Onset Date Comments Care Coordination 10/28/2019 Encounter Details Care Team Description [place] [address] [facility] [address] [place], [place] [address] Care Coordination 10/28/2019 Telephone [facility] [address] [address] Social History Date Tobacco Use [...] Telephone Encounter - Shira Bah RN - 10/28/2019 1:57 PM CDT Patient called office stating that after speaking with her insurance, they are r equesting a letter of necessity for the "lift chair" order that was placed durin g her last office visit. Patient also inquiring about wanting to begin aquatic p hysical therapy if Dr. Cain is okay with that. Let patient know will ask the pr ovider regarding if our office has medical necessity letters or to call the [facility] for them to fax a form to the office as well as placing order for aquatic therapy. Patient verbalized understanding. documented in this encounter Plan of Treatment Not on filedocumented as of this encounter Visit Diagnoses Not on filedocumented in this encounter
--- OUTSIDE RECORDS SUMMARY | 2020-02-02 19:36 | XMS REPORT | Encounter Summary ---
Author Author [facility] Organization [facility] Address Unknown Phone Unavailable Care Team Providers Care Production Sound Mixer Name Role Phone Christina Black RN Unavailable [...] * Reason Onset Date Comments Medication Refill 08/26/2019 Encounter Details Care Team Description [place] [address] [facility] [address] [place], [place] [address] 08/26/2019 Refill [facility] [address] [address] Social History Date Tobacco Use Types Packs/Day Years Used Quit: 05/23/2019 Former Smoker Cigarettes 1 43 Smokeless Tobacco: Never Used Drinks/Week oz/Week Comments Alcohol Use No Sex Assigned at Date Recorded Female documented as of this encounter Functional Status [...] encounter Miscellaneous Notes * Telephone Encounter - Monet Villanueva RN - 08/26/2019 9:34 AM CDT Patient calling requesting refill on diclofenac(+) (VOLTAREN) 1 % topical gel fo r ongoing back pain due to compression fx. Patient in process of getting fitted for back brace. Also saw PCP re: osteoporos is medication- insurance not covering prolia and is starting on fosamax. documented in this encounter Plan of Treatment Not on filedocumented as of this encounter Visit Diagnoses Not on filedocumented in this encounter
--- OUTSIDE RECORDS SUMMARY | 2020-02-02 19:36 | XMS REPORT ---
Author Author Sydnie HERMAN [facility] Address [address] [place], [place] [address] Care Team Providers Care Elevator Worker Name Role Phone MIREILLE HERMAN PCP Allergies and Adverse Reactions Name Reaction Notes Dilaudid Lortab morphine Plan of Treatment Planned Activity Comments Planned Date Planned Time Plan/Goal CT ABD AND PELVIS W/O CONTRAST 01/22/2020 12:00 AM Medications Active Name Start Date Estimated Completion Date SIG Co mments Miralax 17 gram/dose oral powder take 17 gram mixed with 8 oz. water, juice, soda, coffee or tea by oral route once daily Bentyl 10 mg/mL intramuscular solution Vagifem 10 mcg vaginal tablet in sert 1 tablet (10 mcg) by vaginal route twice weekly pantoprazole 40 mg oral tablet,delayed release (DR/EC) take 1 tablet (40 mg) by oral route once daily Flonase Allergy Relief 50 mcg/actuation nasal spray,suspension spray 1 spray (50 mcg) in each nostril by intranasal route once daily Fetzima 120 mg oral capsule,extended release 24 hr take 1 capsule (120 mg) by oral route once daily at approximately the same time each day hydroxyzine HCl 10 mg oral tablet Claritin 10 mg oral tablet take 1 tablet (10 mg) by oral route once daily tramadol 50 mg oral tablet take 1 tablet (50 mg) by oral route every 6 hours as needed estradiol 0.5 mg oral tablet panda e 1 tablet (0.5 mg) by oral route once daily divalproex 500 mg oral tablet extended release 24 hr take 1 tablet (500 mg) by oral route once daily baclofen 20 mg oral tablet take 1 tablet (20 mg) by oral route 3 times per day Boniva 150 mg oral tablet take 1 tablet (150 mg) by oral route once a month on the same date; Take with a full glass of water and remain in an upright position for at least 60 minutes. B Complex 1.7-20-2-1.2 mg/mL sublingual liquid Ocuvite Eye Health 50 mg-15 unit- 4.5 mg-2.5 mg oral tablet,chewabl e Calcium 500 500 mg calcium (1,250 mg) oral tablet vitamin D3-folic acid oral biotin 5,000 mcg oral tablet,disintegrating cranberry 400 mg oral capsule Vitamin C 1,000 mg oral tablet Probiotic 20 billion cell oral capsule Benadryl 25 mg oral capsule take 1 capsule (25 mg) by oral route 3 times per day magnesium 30 mg oral tablet zinc 50 mg oral tablet Problem List Not available. Vital Signs Date Time BP-Sys(mm[Hg] BP-Makenna(mm[Hg]) HR(bpm) RR(rpm) Temp WT HT HC BMI BSA BMI Percentile O2 Sat(%) 01/22/2020 10:45:00 AM 122 mm[Hg] 70 mm[Hg] 103 {beats}/min 18 rpm 97.7 F 153.312 lbs 65 in 25.5123 kg/m2 1.7859 m2 99 % Social History Name Description Comments Tobacco Current every day smoker Alcohol Light History of Procedures Date Ordered Description Order Status 01/22/2020 12:00 AM URINALYSIS AUTO W/SCOPE Reviewed 01/22/2020 12:00 AM COMPLETE CBC W/AUTO DIFF WBC Reviewed 01/22/2020 12:00 AM METABOLIC PANEL TOTAL CA Reviewed Results Summary Date and Description Results 01/22/2020 11:45 AM WBC 10.7 RBC 4.18 HGB 13.20 g/dLHCT 39.90 %MCV 96.0 fLMCH 31.60 pgMCHC 33.10 g/dLRDW SD 44 fLRDW CV 12.50 %MPV 9.60 fLPLT 319 x10E3/uLNRBC# 0.00 NRBC% 0.0 %NEUT 61.3 %LYMP 30.4 %MONO 7.5 %EOS 0.0 %BASO 0.5 #NEUT 6.57 #LYMP 3.25 #MONO 0.80 #EOS 0.00 #BASO 0.05 MANUAL DIFF NOT IND GLUCOSE 95 SODIUM 134 POTASSIUM 4.2 CHLORIDE 97.0 mmol/LCO2 27 BUN 9.0 mg/dLCREATININE 0.760 mg/dLCALCIUM 9.10 mg/dLAGE 64 GFR NonAA 77 GFR AA 93 eGFR 77 mL/min/1.73meGFR AA* >60 mL/min/1.73m 01/22/2020 11:55 AM COLOR Yellow CLARITY Clear S PEC GRAV 1.013 pH 6.5 PROTEIN Negative GLUCOSE Normal KETONE Negative BILIRUBIN Negative BLOOD Negative NITRITE Negative LEUK SCREEN Negative RBC/HPF 0-3 WBC/HPF 0-5 BACTERIA/HPF None Seen SQUAMOUS EPI/LPF 2+ MUCOUS/LPF Few HYALINE CAST/LPF 2+ CULT SET UP? NO History Of Immunizations Not available. History of Past Illness Name Date of Onset Comments Fibromyalgia Anxiety Depression Cervical stenosis of spine Frequent UTI Jan 22 2020 10:48AM Gross hematuria Jan 22 2020 10:48AM Incomplete bladder emptying Jan 22 2020 10:48AM Payers Insurance Name Company Name Plan Name Plan Number Policy Number Martín cy Group Number Start Date Medicare Part B [employer] [place] [id number] N/A [facility] Plan of [id number] N/A History of Encounters Visit Date Visit Type Provider 01/22/2020 Office visit MIREILLE HERMAN MANAGER WELLNESS
--- OUTSIDE RECORDS SUMMARY | 2020-02-02 19:36 | XMS REPORT | Encounter Summary ---
Author Author [facility] Organization [facility] Address Unknown Phone Unavailable Care Team Providers Care Sewing Pattern Layout Technician Name Role Phone Christina Black RN Unavailable Unavailable Tia Levi RN Unavailable Unavailable Ismael Mena MD Unavailable George Gleason MD Unavailable Lobito Blum MD Unavailable Reyes Tee MD Unavailable Unavailable Jonas Torres DO Unavailable Emergency, Nurse RN Unavailable Unavailable Emily Diez RN Unavailable Unavailable Yoselin Bradley RN Unavailable Unavailable Lauri aBldwin MD Unavailable Gabriel Wilson MD Unavailable Unavailable Elif Gallardo APRN PCP Mariposa Dougherty MD Unavailable Victoriano Loja MD Unavailable Reason for Visit * Reason Onset Date Comments Follow Up LOW BACK PAIN Erroneous 09/25/2019 encounter-disregard Encounter Details Care Team Description [place] [address] [place] [address] ERRONEOUS ENCOUNTER--DISREGARD (Primary Dx) 09/25/2019 Office Visit [facility] [address] [place] [address] Social History Date Tobacco Use [...] Oxygen Saturation - - Inhaled Oxygen Concentration 72.6 kg (160 lb) 09/25/2019 2:19 PM CDT Weight 162.6 cm (5' 4") 09/25/2019 2:19 PM CDT Height 27.46 09/25/2019 2:19 PM CDT Body Mass Index documented in [...] Progress Notes * Ger Cain MD - 09/25/2019 2:45 PM CDT This encounter was created in error. Please disregard. documented in this encounter Plan of Treatment Not on filedocumented as of this encounter Visit Diagnoses Diagnosis ERRONEOUS ENCOUNTER--DISREGARD documented in this encounter
--- OUTSIDE RECORDS SUMMARY | 2020-02-02 19:36 | XMS REPORT | Encounter Summary ---
Author Author [facility] Organization [facility] Address Unknown Phone Unavailable Care Team Providers Care Girls Swimming Coach Name Role Phone Christina Black RN Unavailable [...] * Reason Onset Date Comments Care Coordination 09/24/2019 Encounter Details Care Team Description [place] [address] [place] [address] Care Coordination 09/24/2019 Telephone [facility] [address] [place] [address] Social History Date Tobacco Use [...] Telephone Encounter - Shira Bah RN - 09/24/2019 7:54 AM CDT Follow up on patient VM. Patient states she is having return back pain and would like to speak with Dr. Cain regarding receiving medication for her back pain a nd possibly ordering more imaging in the near future. Sent patient link for [facility] art activation and patient will call back to set up telehealth appointment with Dr. Cain. documented in this encounter Plan of Treatment Not on filedocumented as of this encounter Visit Diagnoses Not on filedocumented in this encounter
--- OUTSIDE RECORDS SUMMARY | 2020-02-02 19:36 | XMS REPORT | Encounter Summary ---
Author Author [facility] Organization [facility] Address Unknown Phone Unavailable Care Team Providers Care Boiler Operators Supervisor Name Role Phone Christina Black RN Unavailable [...] Details Care Team Description Date Type Department 09/24/2019 Travel Social History Date Tobacco Use Types [...]
--- OUTSIDE RECORDS SUMMARY | 2020-02-02 19:36 | XMS REPORT ---
Author Author Sydnie HERMAN [facility] oup Address [address] [place], [place] [id number] Care Team Providers Care Supervisor Plastering Name Role Phone MIREILLE HERMAN PCP Allergies and Adverse Reactions Name Reaction Notes Dilaudid Lortab morphine Plan of Treatment Planned Activity Comments Planned Date Planned Time Plan/Goal MAWD 01/26/2020 12:00 AM Medications Active Name Start Date [...] 12:00 AM METABOLIC PANEL TOTAL CA Reviewed 01/22/2020 12:[address] ABD & PELVIS W/O CONTRAST Reviewed Results Summary Date and Description Results [...] Incomplete bladder emptying Jan 22 2020 10:48AM Preoperative examination Jan 26 2020 12:42PM Payers Insurance Name Company Name Plan Name Plan Number Policy Number Martín [place] Group Number Start Date Medicare Part B [employer] [place] [id number] N/A [facility] Plan of [id number] N/A History of Encounters Visit Date Visit Type Provider 01/22/2020 Office visit MIREILLE HERMAN QUITLINE COUNSELOR
--- OUTSIDE RECORDS SUMMARY | 2020-02-02 19:36 | XMS REPORT | Encounter Summary ---
Author Author [facility] Organization [facility] Address Unknown Phone Unavailable Care Team Providers Care Distribution Superintendent Name Role Phone Christina Black RN Unavailable [...] for Visit * Reason Onset Date Comments Erroneous encounter-disregard Erroneous 09/25/2019 encounter-disregard Encounter Details Care Team Description [place] [address] [place] [address] ERRONEOUS ENCOUNTER--DISREGARD (Primary Dx) 09/24/2019 Office Visit [facility] [address] [place] [address] Social History Date Tobacco Use [...] Progress Notes * Ger Cain MD - 09/24/2019 11:00 AM CDT This encounter was created in error. Please disregard. documented in this encounter Plan of Treatment Not on filedocumented as of this encounter Visit Diagnoses Diagnosis ERRONEOUS ENCOUNTER--DISREGARD documented in this encounter
--- OUTSIDE RECORDS SUMMARY | 2020-02-02 19:36 | XMS REPORT ---
Demographics Preferred Language Chinese Marital Status Never Yazdanism Affiliation Unknown Race Other Race Ethnic Group Unknown Author Author [facility] Organization [facility] Address [address] [facility] [address] [place], [place] [id number] Care Team Providers Care Retail Manager Name Role Phone PCP Unavailable Allergies and Adverse Reactions Not available. Plan of Treatment Not available. Medications Not available. Problem List Not available. Vital Signs Not available. Social History Not available. History of Procedures Not available. Results Summary Not available. History Of Immunizations Not available. History of Past Illness Not available. Payers Not available. History of Encounters Not available.
--- OUTSIDE RECORDS SUMMARY | 2020-02-02 19:36 | XMS REPORT ---
Author Author Sydnie HERMAN [facility] oup Address [address] [place] [id number] Care Team Providers Care Motorcycle Builder Name Role Phone MIREILLE HERMAN PCP Allergies and Adverse Reactions Name Reaction Notes Dilaudid Lortab morphine Plan of Treatment Planned Activity Comments Planned Date Planned Time Plan/Goal CT ABD AND PELVIS W/O CONTRAST 01/22/2020 12:00 AM MAWD 01/26/2020 12:00 AM Medications Active Name [...] Date Medicare Part B [employer] [place] [id number] N/A [facility] Plan of [id number] N/A History of Encounters Visit Date Visit Type Provider 01/22/2020 Office visit MIREILLE HERMAN HEAVY FORGER
--- OUTSIDE RECORDS SUMMARY | 2020-02-02 19:36 | XMS REPORT ---
Author Author Sydnie HERMAN [facility] oup Address [address] [place] [id number] Care Team Providers Care Ticket Sorter Name Role Phone MIREILLE HERMAN PCP Allergies [...] Date Medicare Part B [employer] [place] [id number] N/A 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
--- OUTSIDE RECORDS SUMMARY | 2020-02-02 19:37 | XMS REPORT ---
Author Author Sydnie STEPHENSON Organization [facility] Address [address] [place] [address] Care Team Providers Care Refrigeration Installer Name Role Phone DAVEY STEPHENSON Unavailable PROBLEMS Type Condition ICD9-CM Code BWL07-VR Code Onset Dates Condition S tatus SNOMED Code Problem Night sweats R61 Active 3782343 0 Problem Hypertension I10 Active 1310806 3 Problem Arthralgia of hip, unspecified laterality M25.559 Active 09082514 Problem Other chronic pain G89.29 Active 8 1514438 Problem Grief F43.20 Active 82496256 Problem Gastritis without bleeding, unspecified chronicity, unspecified gastritis type K29.70 Active 125495447 Problem Hyperlipidemia, unspecified hyperlipidemia type E7 8.5 Active 63866775 Problem Acute left-sided low back pain with left-sided sciatica M54.42 Active 446265752 Problem Ab[address] CT scan, head R93.0 Active 911028100 Problem Bladder spasm N32.89 Active 658790 006 Problem Age-related osteoporosis without current pathological fracture M81.0 Active 01378876 Problem Bruising, spontaneous R23.3 Active 499111626 Problem Sensorineural hearing loss (SNHL) of both ears H90 .3 Active 673535297 Problem History of colon polyps Z86.010 Active 231494831 Problem Allergic rhinitis J30.9 Active 61 099731 Problem Hematuria, unspecified type R31.9 Ac tive 57601578 Problem Generalized anxiety disorder F41.1 A ctive 35212645 Problem Imbalance R26.89 Active 193266129 Problem Hammer toe of right foot M20.41 Activ e 881563262 Problem Fibromyalgia M79.7 Active 7058767 7 Problem Hormone replacement therapy Z79.890 Ac tive 059892071 Problem Major depressive disorder, recurrent episode, moderate F33.1 Active 890651538 Problem Sciatica of left side M54.32 Active 04014019 Problem Plantar wart of right foot B07.0 Act mitchell [id number] Problem Slow transit constipation K59.01 Acti ve 64843279 Problem Osteoporotic compression fracture of spine with delayed healing M80.88XG Active 03144623 Problem Ataxia R27.0 Active 37258280 Problem Age-related osteoporosis wit h current pathological fracture with delayed healing, subsequent encounter M80.00XG Active 180448546 Problem Bipolar 1 disorder, mixed F31.60 Acti ve 59051798 Problem Hearing loss, unspecified laterality H91.90 Active 10153014 Problem Tobacco use disorder F17.200 Active 205345578 Problem Post menopausal syndrome N95.1 Activ e 149942694 Problem Sciatica of right side M54.31 Active 06500040 Problem Hearing loss, unspecified hearing loss type, uns pecified laterality H91.90 Active 77156269 ALLERGIES No Information ENCOUNTERS Encounter Location Date Diagnosis [facility] [address] [facility] [id number] [address] [place] [id number] 04 Jan, 2020 [facility] [address] [place] [id number] [place] [phone] Dec, [facility] [address] [facility] [id number] [address] [place] [id number] 07 Dec, 2019 Bipolar 1 disorder, mixed F3 1.60 ; Generalized anxiety disorder F41.1 and Tobacco use disorder F17.200 [facility] [address] [place] [place] [id number] [address] [place] [id number] 22 Nov, 2019 [facility] [address] [facility] [id number] [address] [place] [id number] 16 Nov, 2019 Encounter for laboratory abi ting for COVID-19 virus Z11.59 [facility] [address] [facility] [id number] [address] [place] [id number] 11 Nov, 2019 [facility] [address] [place] [id number] [address] [place] [phone] October, Bipolar 1 disorder, mixed F3 1.60 [facility] [address] [facility] [id number] [address] [place] [phone] October, [facility] [address] [place] [id number] [address] [place] [id number] 15 Oct, 2019 [facility] [address] [facility] [id number] [address] [place] [phone] October, [facility] [address] [facility] [id number] [address] [place] [phone] October, [facility] [address] [place] [place] [id number] [address] [place] [phone] October, Acute non-recurrent frontal sinusitis J01.10 [facility] [address] [facility] [id number] [address] [place] [id number] 07 Oct, 2019 Compression fracture of L1 v ertebra, sequela S32.010S [place] [address] [place] [id number] [address] [place] [phone] October, Bipolar 1 disorder, mixed F3 1.60 [facility] [address] [place] [place] [id number] [address] [place] [phone] October, Mouth pain K13.79 [place] [address] [place] [id number] [address] [place] [phone] Sep, [place] [address] [place] [id number] [address] [place] [phone] Sep, Age-related osteoporosis wit h current pathological fracture with delayed healing, subsequent encounter M80.00XG and Sore in mouth K13.79 [place] [address] [facility] [id number] [address] [place] [id number] Sep, [facility] [address] [facility] [id number] [address] [place] [phone] Sep, Bipolar 1 disorder, mixed F3 1.60 [place] [address] [facility] [id number] [address] [place] [address] Sep, Compression fracture of L1 v ertebra, sequela S32.010S ; Tobacco use disorder F17.200 ; Age-related osteoporosis with current pathological fracture with routine healing, subsequent encounter M80.00XD ; Allergic rhinitis J30.9 ; Generalized anxiety disorder F41.1 and Recurrent UTI N39.0 [facility] [address] [address] 14 Sep, 2019 Bipolar 1 disorder, mixed F3 1.60 ; Generalized anxiety disorder F41.1 and Tobacco use disorder F17.200 [facility] [address] [place] [phone] 13 Sep, 2019 [facility] [address] [place] [id number] [place] [phone] 08 Sep, 2019 Bipolar 1 disorder, mixed F3 1.60 [facility] [address] [id number] 23 Aug, 2019 [facility] [address] [id number] 23 Aug, 2019 Yeast vaginitis B37.3 [facility] [address] [place] [place] [id number] [address] [place] [phone] 14 Aug, 2019 Vaginal discharge N89.8 [facility] [address] [address] 10 Aug, 2019 Bipolar 1 disorder, mixed F3 1.60 [facility] [address] [place] [place] [id number] [place] [phone] 04 Aug, 2019 Age-related osteoporosis wit h current pathological fracture with routine healing, subsequent encounter M80.00XD [place] [address] [address] 24 Jul, 2019 Age-related osteoporosis wit h current pathological fracture with routine healing, subsequent encounter M80.00XD [place] [address] [address] 24 Jul, 2019 Osteoporotic compression fra cture of spine with delayed healing M80.88XG and Tobacco use disorder F17.200 [place] [address] [id number] 11 Jul, 2019 Bipolar 1 disorder, mixed F3 1.60 [facility] [address] [facility] [id number] [address] [place] [id number] 07 Jul, 2019 [facility] [address] [facility] [id number] [address] [place] [id number] 03 Jul, 2019 Tobacco use disorder F17.200 [facility] [address] [place] [id number] [address] [place] [id number] 15 Jun, 2019 Bipolar 1 disorder, mixed F3 1.60 [facility] [address] [facility] [id number] [address] [place] [id number] 07 Jun, 2019 Bipolar 1 disorder, mixed F3 1.60 ; Generalized anxiety disorder F41.1 and Tobacco use disorder F17.200 [facility] [address] [place] [id number] [address] [place] [id number] 06 Jun, 2019 Tobacco use disorder F17.200 [facility] [address] [place] [id number] [address] [place] [phone] May, [facility] [address] [place] [id number] [address] [place] [phone] May, Compression fracture of L1 v ertebra with routine healing, subsequent encounter S32.010D [facility] [address] [place] [id number] [address] [place] [phone] May, [facility] [address] [place] [id number] [address] [place] [phone] May, [facility] [address] [place] [id number] [address] [place] [phone] May, [facility] [address] [place] [id number] [address] [place] [phone] May, [facility] [address] [place] [id number] [address] [place] [phone] May, [facility] [address] [place] [id number] [address] [place] [phone] May, [place] [address] [place] [phone] May, [place] [address] [address] May, Bipolar 1 disorder, mixed F3 1.60 [place] [address] [address] May, Closed fracture of right upp er extremity with routine healing, subsequent encounter S42.301D and Hearing loss, unspecified hearing loss type, unspecified laterality H91.90 [place] [address] [address] May, [place] [address] [address] Apr, Allergic rhinitis J30.9 ; Ab dominal pain, unspecified location R10.9 and Seborrheic keratosis L82.1 [place] [address] [address] Mar, Bipolar 1 disorder, mixed F3 1.60 [place] [address] [address] Mar, Bipolar 1 disorder, mixed F3 1.60 ; Generalized anxiety disorder F41.1 and Tobacco use disorder F17.200 [place] [address] [address] Feb, Excessive gas R14.3 ; Other chronic pain G89.29 ; Encounter for immunization Z23 ; Hyperlipidemia, unspecified hyperlipidemia type E78.5 ; Bipolar 1 disorder, mixed F31.60 and Other technician terminal and repeater (current) drug therapy Z79.899 [place] [address] [address] Feb, Bipolar 1 disorder, mixed F3 1.60 [place] [address] [place] [id number] [address] [place] [phone] Jan, Sciatica of right side M54.3 1 ; Low back pain M54.5 and Major depressive disorder, recurrent episode, moderate F33.1 [facility] [address] [id number] [address] [place] [phone] Jan, Bipolar 1 disorder, mixed F3 1.60 [facility] [address] [id number] [address] [place] [phone] Dec, Normal pelvic exam Z01.419 [facility] [address] [id number] [address] [place] [phone] Dec, Bipolar 1 disorder, mixed F3 1.60 [facility] [address] [id number] [address] [place] [id number] Nov, Bipolar 1 disorder, mixed F3 1.60 [facility] [address] [facility] [id number] [address] [place] [phone] Nov, Bipolar 1 disorder, mixed F3 1.60 ; Generalized anxiety disorder F41.1 ; Tobacco use disorder F17.200 and 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 [facility] [address] [id number] [address] [place] [phone] Nov, [facility] [address] [id number] [address] [place] [id number] Nov, Bipolar 1 disorder, mixed F3 1.60 [facility] [address] [id number] [address] [place] [id number] October, Bipolar 1 disorder, mixed F3 1.60 [facility] [address] [id number] [address] [place] [phone] October, Bipolar 1 disorder, mixed F3 1.60 [facility] [address] [id number] [address] [place] [phone] October, [facility] [address] [facility] [id number] [address] [place] [id number] October, Bipolar 1 disorder, mixed F3 1.60 ; Generalized anxiety disorder F41.1 and Tobacco use disorder F17.200 [place] [address] [facility] [id number] [address] [place] [address] Sep, [place] [address] [place] [address] Sep, Encounter for Medicare annua l wellness exam Z00.00 ; Major depressive disorder, recurrent episode, moderate F33.1 ; Allergic rhinitis J30.9 ; Bipolar 1 disorder, mixed F31.60 ; Fibromyalgia M79.7 ; Hyperlipidemia, unspecified hyperlipidemia type E78.5 ; Hormone replacement therapy Z79.890 ; Encounter for screening for lung cancer Z12.2 and Tobacco use disorder F17.200 [place] [address] [place] [id number] [address] [place] [address] Sep, Bipolar 1 disorder, mixed F3 1.60 [place] [address] [address] Sep, Other chronic pain G89.29 ; Hyperlipidemia, unspecified hyperlipidemia type E78.5 ; Breast cancer screening Z12.31 and Post menopausal syndrome N95.1 [place] [address] [place] [id number] [address] [place] [id number] Sep, Bipolar 1 disorder, mixed F3 1.60 [place] [address] [place] [phone] Sep, Bipolar 1 disorder, mixed F3 1.60 ; Generalized anxiety disorder F41.1 and Tobacco use disorder F17.200 [place] [address] [place] [address] Sep, Gastritis without bleeding, unspecified chronicity, unspecified gastritis type K29.70 [place] [address] [place] [id number] [place] [address] Sep, Exercise counseling Z71.82 [place] [address] [place] [id number] [place] [address] Aug, Exercise counseling Z71.82 [place] [address] [place] [id number] [address] [place] [phone] Aug, Bipolar 1 disorder, mixed F3 1.60 [place] [address] [place] [id number] Aug, Exercise counseling Z71.82 [place] [address] [address] Aug, Bipolar 1 disorder, mixed F3 1.60 [place] [address] [address] Aug, Gastritis without bleeding, unspecified chronicity, unspecified gastritis type K29.70 ; Tobacco abuse Z72.0 ; Generalized anxiety disorder F41.1 and Weight gain R63.5 [place] [address] [address] Aug, Bipolar 1 disorder, mixed F3 1.60 ; Generalized anxiety disorder F41.1 and Tobacco use disorder F17.200 [place] [address] [address] Jul, Bipolar 1 disorder, mixed F3 1.60 [place] [address] [address] Jul, [place] [address] [address] Jul, Bipolar 1 disorder, mixed F3 1.60 [place] [address] [address] Jul, Allergic rhinitis J30.9 ; Ma darion depressive disorder, recurrent episode, moderate F33.1 and Tobacco 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 [place] [address] [address] Jun, [place] [address] [address] Jun, [place] [address] [address] Jun, Bipolar 1 disorder, mixed F3 1.60 [facility] [address] [facility] [id number] [address] [place] [id number] Jun, Bipolar 1 disorder, mixed F3 1.60 [facility] [address] [facility] [id number] [address] [place] [id number] Jun, Bipolar 1 disorder, mixed F3 1.60 [facility] [address] [place] [id number] [place] [address] Jun, Generalized anxiety disorder F41.1 ; Tobacco abuse Z72.0 and Major depressive disorder, recurrent episode, moderate F33.1 [place] [address] [facility] [id number] [address] [place] [address] May, Bipolar 1 disorder, mixed F3 1.60 [place] [address] [place] [id number] [place] [address] May, Bipolar 1 disorder, mixed F3 1.60 and Generalized anxiety disorder F41.1 [place] [address] [facility] [id number] [address] [place] [address] May, Bipolar 1 disorder, mixed F3 1.60 [place] [address] [place] [id number] [address] [place] [phone] May, Allergic rhinitis J30.9 [place] [address] [place] [id number] [place] [address] May, Bipolar 1 disorder, mixed F3 1.60 [place] [address] [facility] [id number] [address] [place] [address] May, [facility] [address] [facility] [id number] [address] [place] [address] Apr, Allergic rhinitis J30.9 ; Dy sfunction of both eustachian tubes H69.83 ; History of bladder surgery Z98.890 and Cervicalgia M54.2 [facility] [address] [facility] [id number] [address] [place] [id number] Mar, Bipolar 1 disorder, mixed F3 1.60 [facility] [address] [facility] [id number] [address] [place] [phone] Mar, [facility] [address] [facility] [id number] [address] [place] [address] Mar, Slow transit constipation K5 9.01 ; Encounter for immunization Z23 and Generalized anxiety disorder F41.1 [facility] [address] [facility] [id number] [address] [place] [id number] 27 Feb, 2018 Bipolar 1 disorder, mixed F3 1.60 [facility] [address] [facility] [id number] [address] [place] [id number] Feb, Allergic rhinitis J30.9 [facility] [address] [facility] [id number] [address] [place] [id number] 24 Feb, 2018 Bipolar 1 disorder, mixed F3 1.60 [place] [address] [place] [id number] [place] [id number] Feb, Bipolar 1 disorder, mixed F3 1.60 and Generalized anxiety disorder F41.1 [facility] [address] [facility] [id number] [address] [place] [id number] 13 Feb, 2018 Bipolar 1 disorder, mixed F3 1.60 [facility] [address] [facility] [id number] [address] [place] [id number] 11 Feb, 2018 Allergic rhinitis J30.9 [facility] [address] [facility] [id number] [address] [place] [phone] Feb, [facility] [address] [facility] [id number] [address] [place] [address] Jan, Bipolar 1 disorder, mixed F3 1.60 [facility] [address] [place] [id number] [address] [place] [address] Jan, Low back pain M54.5 ; Hyperl ipidemia, unspecified hyperlipidemia type E78.5 and Bipolar 1 disorder, mixed F31.60 [facility] [address] [place] [id number] [address] [place] [phone] Jan, Bipolar 1 disorder, mixed F3 1.60 [facility] [address] [id number] [address] [place] [phone] Jan, Bipolar 1 disorder, mixed F3 1.60 [facility] [address] [facility] [id number] [address] [place] [id number] Jan, Bipolar 1 disorder, mixed F3 1.60 [facility] [address] [facility] [id number] [address] [place] [address] Jan, Bipolar 1 disorder, mixed F3 1.60 [facility] [address] [id number] [address] [place] [id number] Dec, Bipolar 1 disorder, mixed F3 1.60 ; Generalized anxiety disorder F41.1 and Other technician terminal and repeater (current) drug therapy Z79.899 [facility] [address] [facility] [id number] [address] [place] [phone] Dec, Other technician terminal and repeater (current) dr ug therapy Z79.899 [facility] [address] [id number] [address] [place] [phone] Dec, Bipolar 1 disorder, mixed F3 1.60 [facility] [address] [facility] [id number] [address] [place] [id number] Dec, Bipolar 1 disorder, mixed F3 1.60 [facility] [address] [facility] [id number] [address] [place] [address] Nov, Bipolar 1 disorder, mixed F3 1.60 [facility] [address] [facility] [id number] [address] [place] [id number] Nov, Bipolar 1 disorder, mixed F3 1.60 [facility] [address] [facility] [id number] [address] [place] [address] Nov, Bipolar 1 disorder, mixed F3 1.60 [facility] [address] [facility] [id number] [address] [place] [address] Nov, Allergic rhinitis J30.9 [facility] [address] [place] [address] Nov, Allergic rhinitis J30.9 [facility] [address] [address] Nov, [facility] [address] [address] Nov, Bipolar 1 disorder, mixed F3 1.60 [place] [address] [address] Nov, Fibromyalgia M79.7 and Aller gic rhinitis J30.9 [place] [address] [address] October, Bipolar 1 disorder, mixed F3 1.60 [facility] [address] [address] October, Acute nasopharyngitis J00 [facility] [address] [address] October, Bitten or stung by nonvenomo us insect and other nonvenomous arthropods, initial encounter W57.XXXA and Insect bite (nonvenomous) of abdominal wall, initial encounter S30.861A [place] [address] [address] October, Insect bite (nonvenomous) of abdominal wall, initial encounter S30.861A ; Bitten or stung by nonvenomous insect and other nonvenomous arthropods, initial encounter W57.XXXA ; Allergic rhinitis J30.9 and Low back pain M54.5 [place] [address] [address] October, Bipolar 1 disorder, mixed F3 1.60 [facility] [address] [address] October, [facility] [address] [address] October, [facility] [address] [facility] [id number] [address] [place] [id number] October, Bipolar 1 disorder, mixed F3 1.60 [facility] [address] [id number] [address] [place] [id number] Sep, Bipolar 1 disorder, mixed F3 1.60 [facility] [address] [facility] [id number] [address] [place] [id number] Sep, Other chronic pain G89.29 [facility] [address] [id number] [address] [place] [id number] Sep, [facility] [address] [id number] [address] [place] [id number] Sep, Bipolar 1 disorder, mixed F3 1.60 [facility] [address] [facility] [id number] [address] [place] [id number] Sep, Allergic rhinitis J30.9 and Sciatica of left side M54.32 [facility] [address] [facility] [id number] [address] [place] [id number] Sep, Bipolar 1 disorder, mixed F3 1.60 [facility] [address] [facility] [id number] [address] [place] [id number] Sep, Bipolar 1 disorder, mixed F3 1.60 and Generalized anxiety disorder F41.1 [facility] [address] [facility] [id number] [address] [place] [id number] Aug, [facility] [address] [id number] [address] [place] [address] Aug, Bipolar 1 disorder, mixed F3 1.60 [facility] [address] [facility] [id number] [address] [place] [address] Aug, Bipolar 1 disorder, mixed F3 1.60 [facility] [address] [facility] [id number] [address] [place] [address] Aug, [facility] [address] [place] [id number] [address] [place] [address] Aug, Generalized anxiety disorder F41.1 [facility] [address] [address] Aug, Bipolar 1 disorder, mixed F3 1.60 [facility] [address] [place] [id number] [address] [place] [address] Aug, Plantar wart of right foot B 07.0 [facility] [address] [place] [place] [id number] [address] [place] [address] Aug, Bipolar 1 disorder, mixed F3 1.60 [facility] [address] [address] Jul, Bipolar 1 disorder, mixed F3 1.60 [facility] [address] [address] Jul, [facility] [address] [address] Jul, Bipolar 1 disorder, mixed F3 1.60 [facility] [address] [address] Jul, Generalized anxiety disorder F41.1 [facility] [address] [place] [id number] [address] [place] [id number] Jul, Bipolar 1 disorder, mixed F3 1.60 [facility] [address] [place] [id number] [address] [place] [address] Jul, Acute left-sided low back pa in with left-sided sciatica M54.42 [facility] [address] [place] [id number] [address] [place] [address] Jul, Coccydynia M53.3 [facility] [address] [place] [id number] [address] [place] [address] Jun, Bipolar 1 disorder, mixed F3 1.60 [facility] [address] [place] [place] [id number] [address] [place] [address] Jun, Acute nasopharyngitis J00 [facility] [address] [address] Jun, Bipolar 1 disorder, mixed F3 1.60 [facility] [address] [place] [place] [id number] [address] [place] [address] Jun, Fibromyalgia M79.7 [place] [address] [address] Jun, Bipolar 1 disorder, mixed F3 1.60 [place] [address] [address] Jun, Fibromyalgia M79.7 and Bipol ar 1 disorder, mixed F31.60 [place] [address] [address] May, Bipolar 1 disorder, mixed F3 1.60 ; Generalized anxiety disorder F41.1 and Other technician terminal and repeater (current) drug therapy Z79.899 [place] [address] [address] May, Bipolar 1 disorder, mixed F3 1.60 [facility] [address] [address] 14 May, 2017 Cough R05 and Body aches R52 [facility] [address] [address] 10 May, 2017 Bladder spasm N32.89 and Acu te cystitis without hematuria N30.00 [place] [address] [address] 07 May, 2017 Bipolar 1 disorder, mixed F3 1.60 [place] [address] [address] Apr, [facility] [address] [address] Apr, Major depressive disorder, r ecurrent episode, moderate F33.1 and Encounter for immunization Z23 [facility] [address] [address] Apr, Bipolar 1 disorder, mixed F3 1.60 [facility] [address] Apr, Bipolar 1 disorder, mixed F3 1.60 [place] [address] Apr, Bipolar 1 disorder, mixed F3 1.60 [facility] [address] Apr, Yeast vaginitis B37.3 [place] [address] Apr, Bipolar 1 disorder, mixed F3 1.60 [facility] [address] [place] [address] Apr, Cellulitis L03.[address] for immunization Z23 [place] [address] [address] Apr, Bipolar 1 disorder, mixed F3 1.60 [place] [address] [address] Mar, Bipolar 1 disorder, mixed F3 1.60 [place] [address] [place] [address] Mar, Bipolar 1 disorder, mixed F3 1.60 [place] [address] [address] Mar, Imbalance R26.89 and Encount er for immunization Z23 [facility] [address] [place] [id number] Mar, Generalized anxiety disorder F41.1 [place] [address] [address] Mar, Bipolar 1 disorder, mixed F3 1.60 [place] [address] [address] Mar, Generalized anxiety disorder F41.1 [place] [address] [place] [id number] Mar, Bipolar 1 disorder, mixed F3 1.60 [place] [address] [place] 807372[address] Mar, Bipolar 1 disorder, mixed F3 1.60 [place] [address] [place] [id number] [place] [address] Feb, Bipolar 1 disorder, mixed F3 1.60 [place] [address] [place] [id number] Feb, Bipolar 1 disorder, mixed F3 1.60 and Generalized anxiety disorder F41.1 [place] [address] [address] Feb, Gastritis without bleeding, unspecified chronicity, unspecified gastritis type K29.70 ; Hammer toe of right foot M20.41 and Other viral warts B07.8 [place] [address] [address] Feb, Bipolar 1 disorder, mixed F3 1.60 [place] [address] [address] Feb, Bipolar 1 disorder, mixed F3 1.60 [place] [address] [address] 05 Feb, 2017 Bipolar 1 disorder, mixed F3 1.60 [place] [address] [address] Jan, Encounter for screening mamm ogram for breast cancer Z12.31 ; Other viral warts B07.8 and Allergic rhinitis J30.9 [place] [address] [address] Jan, Bipolar 1 disorder, mixed F3 1.60 [facility] [address] [facility] [id number] [address] [place] [address] Jan, Bipolar 1 disorder, mixed F3 1.60 [facility] [address] [facility] [id number] [address] [place] [address] Jan, [facility] [address] [place] [id number] [address] [place] [address] Jan, Bipolar 1 disorder, mixed F3 1.60 [facility] [address] [facility] [id number] [address] [place] [address] Jan, Bipolar 1 disorder, mixed F3 1.60 [place] [address] [place] [id number] [address] [place] [address] Jan, Allergic rhinitis J30.9 ; He maturia R31.9 and Colon cancer screening Z12.11 [place] [address] [facility] [id number] [address] [place] [address] Dec, Bipolar 1 disorder, mixed F3 1.60 [place] [address] [facility] [id number] [address] [place] [address] Dec, Bipolar 1 disorder, mixed F3 1.60 ; Generalized anxiety disorder F41.1 and Other technician terminal and repeater (current) drug therapy Z79.899 [place] [address] [place] [id number] [address] [place] [address] Dec, Bipolar 1 disorder, mixed F3 1.60 [facility] [address] [facility] [id number] [address] [place] [id number] Dec, Bipolar 1 disorder, mixed F3 1.60 [place] [address] [place] [id number] [address] [place] [address] Dec, Bipolar 1 disorder, mixed F3 1.60 [facility] [address] [place] [id number] [address] [place] [address] Dec, Low back pain M54.5 and Recu rrent urinary tract infection N39.0 [facility] [address] [id number] [address] [place] [address] Nov, Bipolar 1 disorder, mixed F3 1.60 [facility] [address] [id number] [address] [place] [id number] Nov, Bipolar 1 disorder, mixed F3 1.60 [facility] [address] [facility] [id number] [address] [place] [address] Nov, Bipolar 1 disorder, mixed F3 1.60 [facility] [address] [id number] [address] [place] [address] Nov, Bipolar 1 disorder, mixed F3 1.60 [facility] [address] [facility] [id number] [address] [place] [address] Nov, [facility] [address] [facility] [id number] [address] [place] [address] Nov, Anesthesia of skin R20.0 ; F requent UTI N39.0 ; Tobacco abuse Z72.0 and Colon cancer screening Z12.11 [facility] [address] [facility] [id number] [address] [place] [address] Nov, Bipolar 1 disorder, mixed F3 1.60 [facility] [address] [facility] [id number] [address] [place] [address] October, Bipolar 1 disorder, mixed F3 1.60 [facility] [address] [facility] [id number] [address] [place] [address] October, Bipolar 1 disorder, mixed F3 1.60 [facility] [address] [facility] [id number] [address] [place] [address] October, Bipolar 1 disorder, mixed F3 1.60 [facility] [address] [facility] [id number] [address] [place] [address] October, Bipolar 1 disorder, mixed F3 1.60 [facility] [address] [facility] [id number] [address] [place] [address] October, Bipolar 1 disorder, mixed F3 1.60 [place] [address] [address] October, Cervicalgia M54.2 and Bipola r 1 disorder, mixed F31.60 [place] [address] [address] October, Hypertension I10 ; Hyperlipi demia, unspecified hyperlipidemia type E78.5 and Family history of thyroid disease Z83.49 [place] [address] [address] October, [place] [address] [place] [id number] October, Hypertension I10 ; Hyperlipi demia, unspecified hyperlipidemia type E78.5 and Family history of thyroid problem Z83.49 [place] [address] [address] October, Bipolar 1 disorder, mixed F3 1.60 [place] [address] [address] Sep, Bipolar 1 disorder, mixed F3 1.60 [place] [address] [address] Sep, Bipolar 1 disorder, mixed F3 1.60 [place] [address] [address] Sep, Bipolar 1 disorder, mixed F3 1.60 [place] [address] [address] Sep, History of colon polyps Z86. 010 and Hematochezia K92.1 [place] [address] [address] Sep, Major depressive disorder, r ecurrent episode, moderate F33.1 [place] [address] [address] Sep, Bipolar 1 disorder, mixed F3 1.60 [facility] [address] [facility] [id number] [address] [place] [address] Aug, Hot flashes due to menopause N95.1 [facility] [address] [facility] [id number] [address] [place] [address] Aug, Bipolar 1 disorder, mixed F3 1.60 [facility] [address] [place] [id number] [address] [place] [id number] Aug, [facility] [address] [facility] [id number] [address] [place] [id number] Aug, Bipolar 1 disorder, mixed F3 1.60 [facility] [address] [place] [id number] [address] [place] [address] Aug, Bipolar 1 disorder, mixed F3 1.60 [facility] [address] [place] [id number] [address] [place] [phone] Aug, Hot flashes due to menopause N95.1 ; Cervicalgia M54.2 and Ataxia R27.0 [facility] [address] [facility] [id number] [address] [place] [address] Jul, Bipolar 1 disorder, mixed F3 1.60 [facility] [address] [place] [id number] [address] [place] [address] Jul, Bipolar 1 disorder, mixed F3 1.60 [facility] [address] [place] [id number] [address] [place] [address] Jul, Bipolar 1 disorder, mixed F3 1.60 [facility] [address] [place] [id number] [address] [place] [address] Jul, Bipolar 1 disorder, mixed F3 1.60 [facility] [address] [place] [id number] [address] [place] [address] Jul, Bipolar 1 disorder, mixed F3 1.60 [facility] [address] [place] [id number] [address] [place] [address] Jul, Cervicalgia M54.2 ; Tremor R 25.1 ; Hearing abnormally acute, unspecified laterality H93.239 ; Alopecia L65.9 ; Encounter for immunization Z23 and Family history of thyroid disease Z83.49 [facility] [address] [place] [id number] 06 Jul, 2016 Bipolar 1 disorder, mixed F3 1.60 [place] [address] [place] [id number] Jun, [place] [address] [place] [id number] Jun, Hearing disorder, unspecifie d laterality H93.299 [place] [address] [place] [id number] Jun, Bipolar 1 disorder, mixed F3 1.60 [place] [address] [place] [id number] Jun, Bipolar 1 disorder, mixed F3 1.60 [place] [address] [address] Jun, Allergic rhinitis J30.9 [place] [address] [address] Jun, Bipolar 1 disorder, mixed F3 1.60 [place] [address] [address] Jun, Bipolar 1 disorder, mixed F3 1.60 [place] [address] [address] Jun, Allergic rhinitis J30.9 [place] [address] [address] Jun, Allergic rhinitis J30.9 [place] [address] [address] Jun, Bipolar 1 disorder, mixed F3 1.60 [place] [address] [place] [address] May, Bipolar 1 disorder, mixed F3 1.60 [facility] [address] [place] [id number] [address] [place], [place] [address] May, Bipolar 1 disorder, mixed F3 1.60 [facility] [address] [place] [id number] [address] [place] [address] May, [facility] [address] [place] [id number] [place] [address] May, Bipolar 1 disorder, mixed F3 1.60 [facility] [address] [place] [id number] [address] [place] [address] May, Bipolar 1 disorder, mixed F3 1.60 [facility] [address] [address] May, [facility] [address] [address] May, [facility] [address] [address] May, [facility] [address] [address] May, Abdominal pain, unspecified location R10.9 [facility] [address] [address] May, [facility] [address] [address] Apr, Hematuria R31.9 ; Ataxia R27 .0 and Hearing loss, unspecified laterality H91.90 [facility] [address] [address] Apr, Bipolar 1 disorder, mixed F3 1.60 [facility] [address] [place] [id number] [address] [place] [address] Apr, Acute effusion of both middl e ears H65.193 [facility] [address] [address] 10 Apr, 2016 Hematuria R31.9 and Pyelonep hritis N12 [place] [address] [address] Apr, [place] [address] [address] Mar, Bipolar 1 disorder, mixed F3 1.60 [place] [address] [address] Mar, [place] [address] [address] Mar, Bipolar 1 disorder, mixed F3 1.60 [place] [address] [address] Mar, Bipolar 1 disorder, mixed F3 1.60 [place] [address] [address] Mar, Encounter for immunization Z 23 and Gastritis without bleeding, unspecified chronicity, unspecified gastritis type K29.70 [place] [address] [address] Mar, Bipolar 1 disorder, mixed F3 1.60 and Grief F43.20 [place] [address] [address] Mar, Gastritis without bleeding, unspecified chronicity, unspecified gastritis type K29.70 [place] [address] [address] Mar, Bipolar 1 disorder, mixed F3 1.60 [place] [address] [address] Mar, Gastritis without bleeding, unspecified chronicity, unspecified gastritis type K29.70 [place] [address] [address] Mar, [facility] [address] [place] [id number] [address] [place] [address] Feb, Bipolar 1 disorder, mixed F3 1.60 [place] [address] [place] [id number] [address] [place] [address] Feb, Bipolar 1 disorder, mixed F3 1.60 and Grief F43.20 [facility] [address] [place] [address] Feb, Gastritis without bleeding, unspecified chronicity, unspecified gastritis type K29.70 [facility] [id number] [place] [address] 14 Feb, 2016 Bipolar 1 disorder, mixed F3 1.60 [facility] [address] [place] [id number] [address] [place] [address] 09 Feb, 2016 Gastroesophageal reflux dise ase, esophagitis presence not specified K21.9 [place] [address] [place] [id number] [address] [place] [address] Jan, Bipolar 1 disorder, mixed F3 1.60 [place] [address] [address] Jan, Bipolar 1 disorder, mixed F3 1.60 and Unsteady gait R26.81 [place] [address] [place] [id number] [address] [place] [address] Jan, Bipolar 1 disorder, mixed F3 1.60 [place] [address] [place] [id number] [address] [place] [address] Jan, Bipolar 1 disorder, mixed F3 1.60 and 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 [place] [address] [place] [id number] Jan, Bipolar 1 disorder, mixed F3 1.60 [place] [address] [place] [id number] [address] [place] [address] Jan, Bipolar 1 disorder, mixed F3 1.60 [place] [address] [place] [id number] [address] [place] [address] Jan, Bipolar 1 disorder, mixed F3 1.60 ; Grief F43.20 and 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 [place] [address] [place] [id number] [address] [place] [address] Jan, Bipolar 1 disorder, mixed F3 1.60 [place] [address] [place] [id number] [address] [place] [address] Dec, [place] [address] [place] [id number] [address] [place] [address] Dec, Bipolar 1 disorder, mixed F3 1.60 ; Vitamin D deficiency, unspecified E55.9 ; H/O allergic rhinitis Z87.09 ; Other chronic pain G89.29 and Dorsalgia, unspecified M54.9 [place] [address] [place] [id number] [address] [place] [address] Dec, [place] [address] [place] [id number] [address] [place] [address] Dec, Bipolar 1 disorder, mixed F3 1.60 [place] [address] [place] [id number] [address] [place] [address] Dec, Major depressive disorder, r ecurrent episode, moderate F33.1 [place] [address] [place] [id number] [address] [place] [address] Dec, Major depressive disorder, r ecurrent episode, moderate F33.1 [place] [address] [place] [id number] [address] [place] [address] Nov, [place] [address] [place] [id number] [address] [place] [address] Nov, Bipolar 1 disorder, mixed F3 1.60 [place] [address] [place] [id number] [address] [place] [address] Nov, Major depressive disorder, r ecurrent episode, moderate F33.1 [place] [address] [facility] [id number] [address] [place] [address] Nov, Cervicalgia M54.2 ; Arthralg ia of hip, unspecified laterality M25.559 ; Allergic rhinitis J30.9 and Hormone replacement therapy Z79.890 [facility] [address] [facility] [id number] [address] [place] [address] Nov, Other seasonal allergic rhin itis J30.2 [facility] [address] [facility] [id number] [address] [place] [id number] October, Major depressive disorder, r ecurrent episode, moderate F33.1 [place] [address] [facility] [id number] [address] [place] [address] October, Major depressive disorder, r ecurrent episode, moderate F33.1 and Arthralgia of hip, unspecified laterality M25.559 [place] [address] [facility] [id number] [address] [place] [address] October, Grief F43.20 ; Hypertension I10 ; Hyperlipidemia, unspecified hyperlipidemia type E78.5 ; Other chronic pain G89.29 and Allergic rhinitis, unspecified allergic rhinitis type J30.9 [place] [address] [facility] [id number] [address] [place] [id number] October, Major depressive disorder, r ecurrent episode, moderate F33.1 [place] [address] [facility] [id number] [address] [place] [address] Sep, Major depressive disorder, r ecurrent episode, moderate F33.1 [place] [address] [facility] [id number] [address] [place] [address] Sep, [place] [address] [facility] [id number] [address] [place] [address] Sep, Major depressive disorder, r ecurrent episode, moderate F33.1 [place] [address] [facility] [id number] [address] [place] [phone] Sep, Grief F43.20 [place] [address] [address] [facility] [id number] [address] [place] [id number] Aug, Major depressive disorder, r ecurrent episode, moderate F33.1 [place] [id number] [facility] [id number] [address] [place] [id number] Aug, Bipolar 1 disorder, mixed F3 1.60 [place] [address] [address] [facility] [id number] [address] [place] [phone] Aug, Allergic rhinitis J30.9 ; Ce rvicalgia M54.2 and Low back pain M54.5 [place] [address] [address] [facility] [id number] [address] [place] [phone] Aug, Major depressive disorder, r ecurrent episode, moderate F33.1 [facility] [address] [facility] [id number] [address] [place] [id number] Aug, Sinusitis J32.9 and Tobacco 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 [place] [address] [address] [place] [id number] [address] [place] [phone] Aug, [facility] [address] [place] [id number] [address] [place] [phone] Aug, Depressive disorder, not els ewhere classified F32.9 ; Hormone replacement therapy Z79.[address] scan, head R93.0 [place] [address] [address] [place] [id number] [address] [place] [phone] Aug, Major depressive disorder, r ecurrent episode, moderate F33.1 [facility] [address] [facility] [id number] [address] [place] [id number] Jul, Major depressive disorder, r ecurrent episode, moderate F33.1 [place] [address] [address] [facility] [id number] [address] [place] [phone] Jul, Abdominal pain R10.9 and Hyp ertension I10 [place] [address] [address] [place] [id number] [address] [place] [phone] Jul, [place] [address] [id number] [address] [place] [id number] 05 Jul, 2015 Major depressive disorder, r ecurrent episode, moderate F33.1 [facility] [address] [id number] [address] [place] [phone] 04 Jul, 2015 [facility] [address] [id number] [address] [place] [phone] Jul, [facility] [address] [id number] [address] [place] [phone] Jun, [facility] [address] [id number] [address] [place] [phone] Jun, Depressive disorder, not els ewhere classified F32.9 [facility] [address] [id number] [address] [place] [id number] Jun, [place] [address] [facility] [id number] [address] [place] [id number] Jun, [place] [address] [facility] [id number] [address] [place] [id number] Jun, Arthralgia of hip, unspecifi ed laterality M25.559 ; Bruising, spontaneous R23.3 and Night sweats R61 [facility] [address] [facility] [id number] [address] [place] [id number] Jun, [facility] [address] [facility] [id number] [address] [place] [id number] Jun, [facility] [address] [facility] [id number] [address] [place] [phone] May, [place] [address] [address] [facility] [id number] [address] [place] [id number] May, Myalgia M79.1 and Screening, lipid Z13.220 [facility] [address] [facility] [id number] [address] [place] [id number] 10 Apr, 2015 Status post cervical spinal fusion Z98.1 ; Fibromyalgia M79.7 and Unsteady gait R26.81 [facility] [address] [id number] [address] [place] [phone] Nov, [facility] [address] [id number] [address] [place] [phone] Nov, [facility] [address] [facility] [id number] [address] [place] [phone] October, [facility] [address] [id number] [address] [place] [phone] October, [facility] [address] [facility] [id number] [address] [place] [phone] October, [facility] [address] [facility] [id number] [address] [place] [phone] October, [facility] [address] [facility] [id number] [address] [place] [phone] October, [facility] [address] [facility] [id number] [address] [place] [phone] October, Dysuria 788.1 ; Nausea 787.0 2 and Urinary tract infection 599.0 [facility] [address] [facility] [id number] [address] [place] [phone] Sep, [facility] [address] [facility] [id number] [address] [place] [phone] Sep, [facility] [address] [facility] [id number] [address] [place] [phone] Aug, [facility] [address] [facility] [id number] [address] [place] [phone] Aug, [facility] [address] [facility] [id number] [address] [place] [phone] Aug, [facility] [address] [facility] [id number] [address] [place] [phone] Aug, [facility] [address] [facility] [id number] [address] [place] [phone] 23 Aug, 2014 [facility] [address] [id number] [facility] [id number] 19 Aug, 2014 [facility] [address] [id number] [address] [place] [address], [place] [address] 19 Aug, 2014 [facility] [address] [id number] [address] [place] [address], [place] [id number] 19 Aug, 2014 [facility] [address] [id number] [address] [place] [address], [place] [id number] 19 Aug, 2014 [facility] [address] [id number] [address] [place] [address], [place] [id number] 18 Aug, 2014 [facility] [address] [id number] [address] [place] [address], [place] [id number] 18 Aug, 2014 [facility] [address] [id number] [address] [place] [address], [place] [address] 13 Aug, 2014 [facility] [address] [id number] [address] [place] [address], [place] [id number] 13 Aug, 2014 [facility] [address] [id number] [address] [place] [address], [place] [id number] 11 Aug, 2014 [facility] [address] [id number] [address] [place] [address], [place] [id number] 11 Aug, 2014 [facility] [address] [id number] [address] [place] [address], [place] [id number] 06 Aug, 2014 [facility] [address] [id number] [address] [place] [address], [place] [id number] 06 Aug, 2014 [facility] [address] [id number] [address] [place] [address], [place] [id number] 05 Aug, 2014 [facility] [address] [id number] [address] [place] [address], [place] [id number] 05 Aug, 2014 [facility] [address] [id number] [address] [place] [address], [place] [id number] 04 Aug, 2014 [facility] [address] [id number] [address] [place] [address], [place] [address] Aug, [facility] [address] [id number] [address] [place] [address], [place] [address] Aug, [facility] [address] [id number] [address] [place] [address], [place] [id number] Jul, 2014 [facility] [address] [id number] [address] [place] [address], [place] [id number] Jul, 2014 [facility] [address] [id number] [address] [place] [address], [place] [address] Jul, 2014 [facility] [address] [id number] [address] [place] [address], [place] [address] Jul, 2014 [facility] [address] [id number] [address] [place] [address], [place] [id number] Jul, 2014 [facility] [address] [id number] [address] [place] [address], [place] [address] Jul, 2014 [facility] [address] [id number] [address] [place] [address], [place] [id number] Jul, [facility] [address] [id number] [address] [place] [address], [place] [id number] Jul, 2014 [facility] [address] [id number] [address] [place] [address], [place] [address] Jul, [facility] [address] [id number] [address] [place] [address], [place] [id number] Jul, 2014 [facility] [address] [id number] [address] [place] [address], [place] [id number] Jul, 2014 [facility] [address] [id number] [address] [place] [address], [place] [address] Jul, 2014 [facility] [address] [id number] [address] [place] [address], [place] [id number] Jul, 2014 [facility] [address] [id number] [address] [place] [address] [place] [id number] Jul, [facility] [address] [id number] [address] [place] [address], [place] [address] Jun, [facility] [address] [id number] [address] [place] [address], [place] [id number] Jun, [facility] [address] [id number] [address] [place] [address], [place] [address] Jun, [facility] [address] [id number] [address] [place] [address], [place] [address] Jun, [facility] [address] [id number] [address] [place] [address], [place] [id number] Jun, [facility] [address] [id number] [address] [place] [address], [place] [address] Jun, [facility] [address] [id number] [address] [place] [address], [place] [address] May, [facility] [address] [id number] [address] [place] [address], [place] [address] May, [facility] [address] [id number] [address] [place] [address], [place] [id number] May, [facility] [address] [id number] [address] [place] [address], [place] [address] May, [facility] [address] [id number] [address] [place] [address], [place] [address] May, [facility] [address] [id number] [address] [place] [address], [place] [address] May, [facility] [address] [id number] [address] [place] [address], [place] [address] Apr, [facility] [address] [id number] [address] [place] [address], [place] [address] Apr, [facility] [address] [id number] [address] [place] [address], [place] [address] Apr, [facility] [address] [id number] [address] [place] [address], [place] [address] Apr, [facility] [address] [id number] [address] [place] [address], [place] [address] Apr, [facility] [address] [id number] [address] [place] [address], [place] [address] Apr, [facility] [address] [id number] [address] [place] [address], [place] [address] Mar, [facility] [address] [id number] [address] [place] [address], [place] [address] Mar, [facility] [address] [id number] [address] [place] [address], [place] [address] Mar, [facility] [address] [id number] [address] [place] [address], [place] [address] Mar, [facility] [address] [id number] [address] [place] [address], [place] [address] Mar, [facility] [address] [id number] [address] [place] [address], [place] [address] Mar, [facility] [address] [id number] [address] [place] [address], [place] [address] Mar, [facility] [address] [id number] [address] [place] [address], [place] [address] Mar, [facility] [address] [id number] [address] [place] [address], [place] [address] Mar, [facility] [address] [id number] [address] [place] [address], [place] [address] Mar, [facility] [address] [id number] [address] [place] [address], [place] [address] Mar, [facility] [address] [id number] [address] [place] [address], [place] [address] Mar, [facility] [address] [id number] [address] [place] [address], [place] [id number] 30 Feb, 2014 [facility] [address] [id number] [facility] [address] 29 Feb, 2014 [facility] [address] [id number] [address] [place] [address], [place] [id number] 29 Feb, 2014 [facility] [address] [id number] [address] [place] [address], [place] [address] Feb, [facility] [address] [id number] [address] [place] [address], [place] [address] Feb, [facility] [address] [id number] [address] [place] [address], [place] [address] Feb, [facility] [address] [id number] [address] [place] [address], [place] [address] Feb, [facility] [address] [id number] [address] [place] [address], [place] [address] Jan, [facility] [address] [id number] [address] [place] [address], [place] [address] Jan, [facility] [address] [id number] [address] [place] [address], [place] [address] Jan, [facility] [address] [id number] [address] [place] [address], [place] [address] Dec, [facility] [address] [id number] [address] [place] [address], [place] [address] Dec, [facility] [address] [id number] [address] [place] [address], [place] [address] Dec, [facility] [address] [id number] [address] [place] [address], [place] [address] Dec, [facility] [address] [id number] [address] [place] [address], [place] [address] Sep, [facility] [address] [id number] [address] [place] [address], [place] [address] Sep, [facility] [address] [id number] [address] [place] [address], [place] [address] Sep, [facility] [address] [id number] [address] [place] [address], [place] [address] Sep, [facility] [address] [id number] [address] [place] [address], [place] [address] Sep, [facility] [address] [id number] [address] [place] [address], [place] [address] Sep, [facility] [address] [id number] [address] [place] [address], [place] [address] Sep, [facility] [address] [id number] [address] [place] [address], [place] [address] Sep, [facility] [address] [id number] [address] [place] [address], [place] [address] Aug, [facility] [address] [id number] [address] [place] [address], [place] [address] Aug, [facility] [address] [id number] [address] [place] [address], [place] [address] May, [facility] [address] [id number] [address] [place] [address], [place] [address] May, [facility] [address] [id number] [address] [place] [address], [place] [address] Apr, [facility] [address] [id number] [address] [place] [address], [place] [address] Apr, [facility] [address] [id number] [address] [place] [address], [place] [address] Apr, [facility] [address] [id number] [address] [place] [address], [place] [address] Apr, [facility] [address] [id number] [address] [place] [address], [place] [address] Apr, [facility] [address] [id number] [address] [place] [address], [place] [address] Apr, [facility] [address] [id number] [address] [place] [address], [place] [id number] 18 May, 2012 [facility] [address] [id number] [address] [place] [address], [place] [address] 18 May, 2012 [facility] [address] [id number] [address] [place] [address], [place] [address] 15 May, 2012 [facility] [address] [id number] [address] [place] [address], [place] [id number] 15 May, 2012 [facility] [address] [id number] [address] [place] [address], [place] [address] 13 May, 2012 [facility] [address] [id number] [address] [place] [address], [place] [address] 13 May, 2012 [facility] [address] [id number] [address] [place] [address], [place] [address] 13 Apr, 2012 [facility] [address] [id number] [address] [place] [address], [place] [id number] 13 Apr, 2012 [facility] [address] [id number] [address] [place] [address], [place] [address] Apr, [facility] [address] [id number] [address] [place] [address], [place] [address] Apr, [facility] [address] [id number] [address] [place] [address], [place] [address] Apr, [facility] [address] [id number] [address] [place] [address], [place] [address] Apr, [facility] [address] [id number] [address] [place] [address], [place] [address] Apr, [facility] [address] [id number] [address] [place] [address], [place] [address] Apr, [facility] [address] [id number] [address] [place] [address], [place] [address] Apr, [facility] [address] [id number] [address] [place] [id number] Apr, [facility] [address] [id number] [address] [place] [address], [place] [address] Mar, [facility] [address] [id number] [address] [place] [id number] Mar, [facility] [address] [id number] [address] [place] [address], [place] [address] Mar, [facility] [address] [id number] [address] [place] [id number] Mar, [facility] [address] [id number] [address] [place] [address], [place] [address] Mar, [facility] [address] [id number] [address] [place] [address], [place] [address] Mar, [facility] [address] [id number] [address] [place] [id number] Mar, [facility] [address] [id number] [address] [place] [address], [place] [address] Mar, [facility] [address] [id number] [address] [place] [id number] Mar, [facility] [address] [id number] [address] [place] [id number] Feb, [facility] [address] [id number] [address] [place] [id number] 16 Feb, 2012 [facility] [address] [id number] [address] [place] [id number] Feb, [facility] [address] [id number] [address] [place] [id number] Jan, [facility] [address] [id number] [address] [place] [id number] Jan, [facility] [address] [id number] [address] [place] [address], [place] [address] Jan, [facility] [address] [id number] [address] [place] [address], [place] [id number] 18 Jan, 2012 [facility] [address] [id number] [address] [place] [address], [place] [address] Jan, [facility] [address] [id number] [address] [place] [address], [place] [address] Jan, [facility] [address] [id number] [address] [place] [address], [place] [address] 16 Jan, 2012 [facility] [address] [id number] [address] [place] [address], [place] [address] Jan, [facility] [address] [id number] [address] [place] [address], [place] [address] Jan, [facility] [address] [id number] [address] [place] [address], [place] [address] Jan, [facility] [address] [id number] [address] [place] [address], [place] [id number] Dec, [facility] [address] [id number] [address] [place] [address], [place] [id number] Dec, [facility] [address] [id number] [address] [place] [address], [place] [id number] Dec, [facility] [address] [id number] [address] [place] [address], [place] [id number] Dec, [facility] [address] [id number] [address] [place] [address], [place] [id number] Nov, [facility] [address] [id number] [address] [place] [address], [place] [id number] Nov, [facility] [address] [id number] [address] [place] [address], [place] [id number] Nov, [facility] [address] [id number] [address] [place] [address], [place] [id number] October, [facility] [address] [id number] [address] [place] [address], [place] [id number] October, [facility] [address] [id number] [address] [place] [id number] October, [facility] [address] [id number] [address] [place] [id number] October, [facility] [address] [id number] [address] [place] [phone] October, [facility] [address] [id number] [address] [place] [id number] October, [facility] [address] [id number] [address] [place] [phone] Aug, [facility] [address] [id number] [address] [place] [phone] Mar, [facility] [address] [id number] [address] [place] [id number] Nov, [facility] [address] [id number] [address] [place] [id number] May, [facility] [address] [id number] [address] [place] [phone] May, [facility] [address] [id number] [address] [place] [id number] Apr, [facility] [address] [id number] [address] [place] [id number] Mar, [facility] [address] [id number] [address] [place] [phone] Mar, IMMUNIZATIONS No Known Immunizations SOCIAL HISTORY Never Assessed REASON FOR VISIT PLAN OF CARE VITAL SIGNS Height 64 in 2013-04-18 Weight 145.7 lbs 2013-04-18 Temperature 97.7 degrees Fahrenheit 2013-04-18 Heart Rate 88 bpm 2013-04-18 Respiratory Rate 20 2013-04-18 Blood pressure systolic 126 mmHg 2013-04-18 Blood pressure diastolic 86 mmHg 2013-04-18 MEDICATIONS Unknown Medications RESULTS No Results PROCEDURES Procedure Date Ordered Result Body Site VENIPUNCT, ROUTINE* Apr 18, 2013 COMPREHEN METABOLIC PANEL Apr 18, 2013 LIPID PANEL Apr 18, 2013 ASSAY THYROID STIM HORMONE Apr 18, 2013 INSTRUCTIONS MEDICATIONS ADMINISTERED No Known Medications MEDICAL [...] or seizure Medical History Hematuria, unspecified type Medical History 05/06 Right shoulder dislocation and fx traumatic Medical History 05/23 fracture in L1 Surgical History cervical spine fusion C5-C7 01/14/2015 Surgical History hysterectomy Surgical History bladder sling Surgical History tonsillectomy Surgical History cholecystectomy Surgical History appendectomy Surgical History Bladder surgery 05/18/15 Surgical History Arterial bleed repaired 05/19/2015 Surgical History cystescope 09/05/2017 Surgical History bladder sling and cystocele 03/2018 Surgical History Lumbar Epidural 02/2019 Hospitalization History surgeries Hospitalization History depression Hospitalization History psychiatric hospitalizations (last [facility] 2013) x5 Hospitalization History L1 fracture 05/2019
--- OUTSIDE RECORDS SUMMARY | 2020-02-02 19:37 | XMS REPORT ---
Author Author Sydnie LOWERY Organization [facility] Address [address] [place] [address] Care Team Providers Care Cafeteria Operator Name Role Phone ROEL LOWERY Unavailable PROBLEMS Type Condition ICD9-CM Code [id number] Code Onset Dates Condition S tatus SNOMED Code Problem Night sweats R61 Active 3351815 0 Problem Hypertension I10 Active 3882150 3 Problem Arthralgia of hip, unspecified laterality M25.559 Active 34894357 Problem Other chronic pain G89.29 Active 8 9316552 Problem Grief F43.20 Active 68545173 Problem Gastritis without bleeding, unspecified chronicity, unspecified gastritis type K29.70 Active 988358082 Problem Hyperlipidemia, unspecified hyperlipidemia type E7 8.5 Active 10071246 Problem Acute left-sided low back pain with left-sided sciatica M54.42 Active 811293572 Problem Abnormal CT scan, head R93.0 Active 151573569 Problem Bladder spasm N32.89 Active 872510 006 Problem Age-related osteoporosis without current pathological fracture M81.0 Active 71514101 Problem Bruising, spontaneous R23.3 Active 357323636 Problem Sensorineural hearing loss (SNHL) of both ears H90 .3 Active 264525426 Problem History of colon polyps Z86.010 Active 391380563 Problem Allergic rhinitis J30.9 Active 61 394774 Problem Hematuria, unspecified type R31.9 Ac tive 69001320 Problem Generalized anxiety disorder F41.1 A ctive 79466824 Problem Imbalance R26.89 Active 575719289 Problem Hammer toe of right foot M20.41 Activ e 894681941 Problem Fibromyalgia M79.7 Active 1379046 7 Problem Hormone replacement therapy Z79.890 Ac tive 818641853 Problem Major depressive disorder, recurrent episode, moderate F33.1 Active 771003501 Problem Sciatica of left side M54.32 Active 30062961 Problem Plantar wart of right foot B07.0 Act mitchell [id number] Problem Slow transit constipation K59.01 Acti ve 86026381 Problem Osteoporotic compression fracture of spine with delayed healing M80.88XG Active 48901660 Problem Ataxia R27.0 Active 47684961 Problem Age-related osteoporosis wit h current pathological fracture with delayed healing, subsequent encounter M80.00XG Active 831704248 Problem Bipolar 1 disorder, mixed F31.60 Acti ve 20079515 Problem Hearing loss, unspecified laterality H91.90 Active 87799250 Problem Tobacco use disorder F17.200 Active 051999555 Problem Post menopausal syndrome N95.1 Activ e 522605169 Problem Sciatica of right side M54.31 Active 70274078 Problem Hearing loss, unspecified hearing loss type, uns pecified laterality H91.90 Active 95776785 ALLERGIES No Information ENCOUNTERS Encounter Location Date Diagnosis [facility] [address] [facility] [id number] [address] [place] [id number] 04 Jan, 2020 [facility] [address] [place] [id number] [place] [phone] Dec, [facility] [address] [facility] [id number] [address] [place] [phone] 07 Dec, 2019 Bipolar 1 disorder, mixed F3 1.60 ; Generalized anxiety disorder F41.1 and Tobacco use disorder F17.200 [facility] [address] [place] [id number] [address] [place] [phone] 22 Nov, 2019 [facility] [address] [facility] [id number] [address] [place] [phone] 16 Nov, 2019 Encounter for laboratory abi ting for COVID-19 virus Z11.59 [facility] [address] [facility] [id number] [address] [place] [phone] 11 Nov, 2019 [facility] [address] [place] [id number] [address] [place] [phone] October, Bipolar 1 disorder, mixed F3 1.60 [facility] [address] [facility] [id number] [address] [place] [phone] October, [facility] [address] [place] [id number] [address] [place] [id number] 15 Oct, 2019 [facility] [address] [facility] [id number] [address] [place] [phone] October, [facility] [address] [facility] [id number] [address] [place] [phone] October, [facility] [address] [place] [id number] [address] [place] [phone] October, Acute non-recurrent frontal sinusitis J01.10 [facility] [address] [facility] [id number] [address] [place] [phone] 07 Oct, 2019 Compression fracture of L1 v ertebra, sequela S32.010S [place] [address] [place] [id number] [address] [place] [phone] October, Bipolar 1 disorder, mixed F3 1.60 [facility] [address] [place] [id number] [address] [place] [phone] October, Mouth pain K13.79 [place] [address] [place] [id number] [address] [place] [phone] Sep, [place] [address] [place] [id number] [address] [place] [phone] Sep, Age-related osteoporosis wit h current pathological fracture with delayed healing, subsequent encounter M80.00XG and Sore in mouth K13.79 [place] [address] [facility] [id number] [address] [place] [phone] Sep, [facility] [address] [facility] [id number] [address] [place] [phone] Sep, Bipolar 1 disorder, mixed F3 1.60 [place] [address] [facility] [id number] [address] [place] [phone] Sep, Compression fracture of L1 v ertebra, sequela S32.010S ; Tobacco use disorder F17.200 ; Age-related osteoporosis with current pathological fracture with routine healing, subsequent encounter M80.00XD ; Allergic rhinitis J30.9 ; Generalized anxiety disorder F41.1 and Recurrent UTI N39.0 [facility] [address] [id number] 14 Sep, 2019 Bipolar 1 disorder, mixed F3 1.60 ; Generalized anxiety disorder F41.1 and Tobacco use disorder F17.200 [facility] [address] [place] [address] 13 Sep, 2019 [facility] [address] [place] [id number] [place] [phone] 08 Sep, 2019 Bipolar 1 disorder, mixed F3 1.60 [facility] [address] [id number] 23 Aug, 2019 [facility] [address] [address] 23 Aug, 2019 Yeast vaginitis B37.3 [facility] [address] [place] [id number] [place] [phone] 14 Aug, 2019 Vaginal discharge N89.8 [facility] [address] [id number] 10 Aug, 2019 Bipolar 1 disorder, mixed F3 1.60 [facility] [address] [place] [id number] [place] [id number] 04 Aug, 2019 Age-related osteoporosis wit h current pathological fracture with routine healing, subsequent encounter M80.00XD [place] [address] [address] 24 Jul, 2019 Age-related osteoporosis wit h current pathological fracture with routine healing, subsequent encounter M80.00XD [place] [address] [address] 24 Jul, 2019 Osteoporotic compression fra cture of spine with delayed healing M80.88XG and Tobacco use disorder F17.200 [place] [address] [address] 11 Jul, 2019 Bipolar 1 disorder, mixed F3 1.60 [facility] [address] [facility] [id number] [address] [place] [id number] 07 Jul, 2019 [facility] [address] [facility] [id number] [address] [place] [phone] 03 Jul, 2019 Tobacco use disorder F17.200 [facility] [address] [place] [id number] [place] [phone] 15 Jun, 2019 Bipolar 1 disorder, mixed F3 1.60 [facility] [address] [facility] [id number] [address] [place] [phone] 07 Jun, 2019 Bipolar 1 disorder, mixed F3 1.60 ; Generalized anxiety disorder F41.1 and Tobacco use disorder F17.200 [facility] [address] [place] [id number] [place] [id number] 06 Jun, 2019 Tobacco use disorder F17.200 [facility] [address] [place] [id number] [place] [phone] May, [facility] [address] [place] [id number] [place] [phone] May, Compression fracture of L1 v ertebra with routine healing, subsequent encounter S32.010D [facility] [address] [place] [id number] [place] [phone] May, [facility] [address] [place] [id number] [place] [phone] May, [facility] [address] [place] [id number] [place] [phone] May, [facility] [address] [place] [id number] [place] [phone] May, [facility] [address] [place] [id number] [place] [phone] May, [facility] [address] [place] [id number] [place] [phone] May, [place] [address] [place] [address] May, [place] [address] [address] May, Bipolar 1 disorder, mixed F3 1.60 [place] [address] [address] May, Closed fracture of right upp er extremity with routine healing, subsequent encounter S42.301D and Hearing loss, unspecified hearing loss type, unspecified laterality H91.90 [place] [address] [address] May, [place] [address] [address] Apr, Allergic rhinitis J30.9 ; Ab dominal pain, unspecified location R10.9 and Seborrheic keratosis L82.1 [place] [address] [address] Mar, Bipolar 1 disorder, mixed F3 1.60 [place] [address] [address] Mar, Bipolar 1 disorder, mixed F3 1.60 ; Generalized anxiety disorder F41.1 and Tobacco use disorder F17.200 [place] [address] [address] Feb, Excessive gas R14.3 ; Other chronic pain G89.29 ; Encounter for immunization Z23 ; Hyperlipidemia, unspecified hyperlipidemia type E78.5 ; Bipolar 1 disorder, mixed F31.60 and Other detention (current) drug therapy Z79.899 [place] [address] [address] Feb, Bipolar 1 disorder, mixed F3 1.60 [place] [address] [place] [id number] [address] [place] [address] Jan, Sciatica of right side M54.3 1 ; Low back pain M54.5 and Major depressive disorder, recurrent episode, moderate F33.1 [facility] [address] [id number] [address] [place] [phone] Jan, Bipolar 1 disorder, mixed F3 1.60 [facility] [address] [id number] [address] [place] [phone] Dec, Normal pelvic exam Z01.419 [facility] [address] [id number] [address] [place] [phone] Dec, Bipolar 1 disorder, mixed F3 1.60 [facility] [address] [id number] [address] [place] [id number] Nov, Bipolar 1 disorder, mixed F3 1.60 [facility] [address] [facility] [id number] [address] [place] [phone] Nov, Bipolar 1 disorder, mixed F3 1.60 ; Generalized anxiety disorder F41.1 ; Tobacco use disorder F17.200 and 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 [facility] [address] [id number] [address] [place] [phone] Nov, [facility] [address] [id number] [address] [place] [phone] Nov, Bipolar 1 disorder, mixed F3 1.60 [facility] [address] [id number] [address] [place] [phone] October, Bipolar 1 disorder, mixed F3 1.60 [facility] [address] [id number] [address] [place] [phone] October, Bipolar 1 disorder, mixed F3 1.60 [facility] [address] [id number] [address] [place] [phone] October, [facility] [address] [facility] [id number] [address] [place] [phone] October, Bipolar 1 disorder, mixed F3 1.60 ; Generalized anxiety disorder F41.1 and Tobacco use disorder F17.200 [place] [address] [facility] [id number] [address] [place] [phone] Sep, [place] [address] [place] [address] Sep, Encounter for Medicare annua l wellness exam Z00.00 ; Major depressive disorder, recurrent episode, moderate F33.1 ; Allergic rhinitis J30.9 ; Bipolar 1 disorder, mixed F31.60 ; Fibromyalgia M79.7 ; Hyperlipidemia, unspecified hyperlipidemia type E78.5 ; Hormone replacement therapy Z79.890 ; Encounter for screening for lung cancer Z12.2 and Tobacco use disorder F17.200 [place] [address] [place] [id number] [address] [place] [address] Sep, Bipolar 1 disorder, mixed F3 1.60 [place] [address] [address] Sep, Other chronic pain G89.29 ; Hyperlipidemia, unspecified hyperlipidemia type E78.5 ; Breast cancer screening Z12.31 and Post menopausal syndrome N95.1 [place] [address] [place] [id number] [place] [phone] Sep, Bipolar 1 disorder, mixed F3 1.60 [place] [address] [place] [address] Sep, Bipolar 1 disorder, mixed F3 1.60 ; Generalized anxiety disorder F41.1 and Tobacco use disorder F17.200 [place] [address] [place] [address] Sep, Gastritis without bleeding, unspecified chronicity, unspecified gastritis type K29.70 [place] [address] [place] [id number] [place] [address] Sep, Exercise counseling Z71.82 [place] [address] [place] [id number] [place] [address] Aug, Exercise counseling Z71.82 [place] [address] [place] [id number] [address] [place] [address] Aug, Bipolar 1 disorder, mixed F3 1.60 [place] [address] [place] [address] Aug, Exercise counseling Z71.82 [place] [address] [address] Aug, Bipolar 1 disorder, mixed F3 1.60 [place] [address] [address] Aug, Gastritis without bleeding, unspecified chronicity, unspecified gastritis type K29.70 ; Tobacco abuse Z72.0 ; Generalized anxiety disorder F41.1 and Weight gain R63.5 [place] [address] [address] Aug, Bipolar 1 disorder, mixed F3 1.60 ; Generalized anxiety disorder F41.1 and Tobacco use disorder F17.200 [place] [address] [address] Jul, Bipolar 1 disorder, mixed F3 1.60 [place] [address] [address] Jul, [place] [address] [address] Jul, Bipolar 1 disorder, mixed F3 1.60 [place] [address] [address] Jul, Allergic rhinitis J30.9 ; Ma darion depressive disorder, recurrent episode, moderate F33.1 and Tobacco 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 [place] [address] [address] Jun, [place] [address] [address] Jun, [place] [address] [address] Jun, Bipolar 1 disorder, mixed F3 1.60 [facility] [address] [facility] [id number] [address] [place] [address] Jun, Bipolar 1 disorder, mixed F3 1.60 [facility] [address] [facility] [id number] [address] [place] [phone] Jun, Bipolar 1 disorder, mixed F3 1.60 [facility] [address] [place] [id number] [place] [id number] Jun, Generalized anxiety disorder F41.1 ; Tobacco abuse Z72.0 and Major depressive disorder, recurrent episode, moderate F33.1 [place] [address] [facility] [id number] [address] [place] [address] May, Bipolar 1 disorder, mixed F3 1.60 [place] [address] [place] [id number] [place] [id number] May, Bipolar 1 disorder, mixed F3 1.60 and Generalized anxiety disorder F41.1 [place] [address] [facility] [id number] [address] [place] [phone] May, Bipolar 1 disorder, mixed F3 1.60 [place] [address] [place] [id number] [place] [address] May, Allergic rhinitis J30.9 [place] [address] [place] [id number] [place] [phone] May, Bipolar 1 disorder, mixed F3 1.60 [place] [address] [facility] [id number] [address] [place] [phone] May, [facility] [address] [facility] [id number] [address] [place] [address] Apr, Allergic rhinitis J30.9 ; Dy sfunction of both eustachian tubes H69.83 ; History of bladder surgery Z98.890 and Cervicalgia M54.2 [facility] [address] [facility] [id number] [address] [place] [id number] Mar, Bipolar 1 disorder, mixed F3 1.60 [facility] [address] [facility] [id number] [address] [place] [address] Mar, [facility] [address] [facility] [id number] [address] [place] [address] Mar, Slow transit constipation K5 9.01 ; Encounter for immunization Z23 and Generalized anxiety disorder F41.1 [facility] [address] [facility] [id number] [address] [place] [phone] 27 Feb, 2018 Bipolar 1 disorder, mixed F3 1.60 [facility] [address] [facility] [id number] [address] [place] [address] Feb, Allergic rhinitis J30.9 [facility] [address] [facility] [id number] [address] [place] [id number] 24 Feb, 2018 Bipolar 1 disorder, mixed F3 1.60 [place] [address] [place] [id number] [place] [address] Feb, Bipolar 1 disorder, mixed F3 1.60 and Generalized anxiety disorder F41.1 [facility] [address] [facility] [id number] [address] [place] [id number] 13 Feb, 2018 Bipolar 1 disorder, mixed F3 1.60 [facility] [address] [facility] [id number] [address] [place] [phone] 11 Feb, 2018 Allergic rhinitis J30.9 [facility] [address] [facility] [id number] [address] [place] [phone] Feb, [facility] [address] [facility] [id number] [address] [place] [phone] Jan, Bipolar 1 disorder, mixed F3 1.60 [facility] [address] [place] [id number] [place] [phone] Jan, Low back pain M54.5 ; Hyperl ipidemia, unspecified hyperlipidemia type E78.5 and Bipolar 1 disorder, mixed F31.60 [facility] [address] [place] [id number] [place] [id number] Jan, Bipolar 1 disorder, mixed F3 1.60 [facility] [address] [id number] [address] [place] [phone] Jan, Bipolar 1 disorder, mixed F3 1.60 [facility] [address] [facility] [id number] [address] [place] [phone] Jan, Bipolar 1 disorder, mixed F3 1.60 [facility] [address] [facility] [id number] [address] [place] [phone] Jan, Bipolar 1 disorder, mixed F3 1.60 [facility] [address] [id number] [address] [place] [id number] Dec, Bipolar 1 disorder, mixed F3 1.60 ; Generalized anxiety disorder F41.1 and 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 [facility] [address] [facility] [id number] [address] [place] [address] Dec, 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 (current) dr ug therapy Z79.899 [facility] [address] [id number] [address] [place] [address] Dec, Bipolar 1 disorder, mixed F3 1.60 [facility] [address] [facility] [id number] [address] [place] [phone] Dec, Bipolar 1 disorder, mixed F3 1.60 [facility] [address] [facility] [id number] [address] [place] [phone] Nov, Bipolar 1 disorder, mixed F3 1.60 [facility] [address] [facility] [id number] [address] [place] [address] Nov, Bipolar 1 disorder, mixed F3 1.60 [facility] [address] [facility] [id number] [address] [place] [phone] Nov, Bipolar 1 disorder, mixed F3 1.60 [facility] [address] [facility] [id number] [address] [place] [phone] Nov, Allergic rhinitis J30.9 [facility] [address] [place] [address] Nov, Allergic rhinitis J30.9 [facility] [address] [address] Nov, [facility] [address] [address] Nov, Bipolar 1 disorder, mixed F3 1.60 [place] [address] [address] Nov, Fibromyalgia M79.7 and Aller gic rhinitis J30.9 [place] [address] [address] October, Bipolar 1 disorder, mixed F3 1.60 [facility] [address] [address] October, Acute nasopharyngitis J00 [facility] [address] [address] October, Bitten or stung by nonvenomo us insect and other nonvenomous arthropods, initial encounter W57.XXXA and Insect bite (nonvenomous) of abdominal wall, initial encounter S30.861A [place] [address] [address] October, Insect bite (nonvenomous) of abdominal wall, initial encounter S30.861A ; Bitten or stung by nonvenomous insect and other nonvenomous arthropods, initial encounter W57.XXXA ; Allergic rhinitis J30.9 and Low back pain M54.5 [place] [address] [address] October, Bipolar 1 disorder, mixed F3 1.60 [facility] [address] [address] October, [facility] [address] [address] October, [facility] [address] [facility] [id number] [address] [place] [id number] October, Bipolar 1 disorder, mixed F3 1.60 [facility] [address] [id number] [address] [place] [phone] Sep, Bipolar 1 disorder, mixed F3 1.60 [facility] [address] [facility] [id number] [address] [place] [address] Sep, Other chronic pain G89.29 [facility] [address] [id number] [address] [place] [id number] Sep, [facility] [address] [id number] [address] [place] [id number] Sep, Bipolar 1 disorder, mixed F3 1.60 [facility] [address] [facility] [id number] [address] [place] [phone] Sep, Allergic rhinitis J30.9 and Sciatica of left side M54.32 [facility] [address] [facility] [id number] [address] [place] [id number] Sep, Bipolar 1 disorder, mixed F3 1.60 [facility] [address] [facility] [id number] [address] [place] [id number] Sep, Bipolar 1 disorder, mixed F3 1.60 and Generalized anxiety disorder F41.1 [facility] [address] [facility] [id number] [address] [place] [phone] Aug, [facility] [address] [id number] [address] [place] [id number] Aug, Bipolar 1 disorder, mixed F3 1.60 [facility] [address] [facility] [id number] [address] [place] [id number] Aug, Bipolar 1 disorder, mixed F3 1.60 [facility] [address] [facility] [id number] [address] [place] [id number] Aug, [facility] [address] [place] [id number] [address] [place] [address] Aug, Generalized anxiety disorder F41.1 [facility] [address] [address] Aug, Bipolar 1 disorder, mixed F3 1.60 [facility] [address] [place] [id number] [address] [place] [address] Aug, Plantar wart of right foot B 07.0 [facility] [address] [place] [id number] [address] [place] [phone] Aug, Bipolar 1 disorder, mixed F3 1.60 [facility] [address] [address] Jul, Bipolar 1 disorder, mixed F3 1.60 [facility] [address] [address] Jul, [facility] [address] [address] Jul, Bipolar 1 disorder, mixed F3 1.60 [facility] [address] [address] Jul, Generalized anxiety disorder F41.1 [facility] [address] [place] [id number] [address] [place] [address] Jul, Bipolar 1 disorder, mixed F3 1.60 [facility] [address] [place] [id number] [address] [place] [address] Jul, Acute left-sided low back pa in with left-sided sciatica M54.42 [facility] [address] [place] [id number] [address] [place] [address] Jul, Coccydynia M53.3 [facility] [address] [place] [id number] [address] [place] [id number] Jun, Bipolar 1 disorder, mixed F3 1.60 [facility] [address] [place] [id number] [address] [place] [address] Jun, Acute nasopharyngitis J00 [facility] [address] [address] Jun, Bipolar 1 disorder, mixed F3 1.60 [facility] [address] [place] [id number] [address] [place] [address] Jun, Fibromyalgia M79.7 [place] [address] [address] Jun, Bipolar 1 disorder, mixed F3 1.60 [place] [address] [address] Jun, Fibromyalgia M79.7 and Bipol ar 1 disorder, mixed F31.60 [place] [address] [address] May, Bipolar 1 disorder, mixed F3 1.60 ; Generalized anxiety disorder F41.1 and 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 [place] [address] [address] May, Bipolar 1 disorder, mixed F3 1.60 [facility] [address] [address] 14 May, 2017 Cough R05 and Body aches R52 [facility] [address] [address] 10 May, 2017 Bladder spasm N32.89 and Acu te cystitis without hematuria N30.00 [place] [address] [address] 07 May, 2017 Bipolar 1 disorder, mixed F3 1.60 [place] [address] [address] Apr, [facility] [address] [address] Apr, Major depressive disorder, r ecurrent episode, moderate F33.1 and Encounter for immunization Z23 [facility] [address] [address] Apr, Bipolar 1 disorder, mixed F3 1.60 [facility] [address] Apr, Bipolar 1 disorder, mixed F3 1.60 [place] [address] Apr, Bipolar 1 disorder, mixed F3 1.60 [facility] [address] Apr, Yeast vaginitis B37.3 [place] [address] Apr, Bipolar 1 disorder, mixed F3 1.60 [facility] [address] [place] [address] Apr, Cellulitis L03.[address] for immunization Z23 [place] [address] [address] Apr, Bipolar 1 disorder, mixed F3 1.60 [place] [address] [address] Mar, Bipolar 1 disorder, mixed F3 1.60 [place] [address] [place] [address] Mar, Bipolar 1 disorder, mixed F3 1.60 [place] [address] [address] Mar, Imbalance R26.89 [address] Encount er for immunization Z23 [facility] [address] [place] [address] Mar, Generalized anxiety disorder F41.1 [place] [address] [address] Mar, Bipolar 1 disorder, mixed F3 1.60 [place] [address] [address] Mar, Generalized anxiety disorder F41.1 [place] [address] [place] [address] Mar, Bipolar 1 disorder, mixed F3 1.60 [place] [address] [place] [address] Mar, Bipolar 1 disorder, mixed F3 1.60 [place] [address] [place] [id number] [place] [address] Feb, Bipolar 1 disorder, mixed F3 1.60 [place] [address] [place] [address] Feb, Bipolar 1 disorder, mixed F3 1.60 and Generalized anxiety disorder F41.1 [place] [address] [address] Feb, Gastritis without bleeding, unspecified chronicity, unspecified gastritis type K29.70 ; Hammer toe of right foot M20.41 and Other viral warts B07.8 [place] [address] [address] Feb, Bipolar 1 disorder, mixed F3 1.60 [place] [address] [address] Feb, Bipolar 1 disorder, mixed F3 1.60 [place] [address] [address] 05 Feb, 2017 Bipolar 1 disorder, mixed F3 1.60 [place] [address] [address] Jan, Encounter for screening mamm ogram for breast cancer Z12.31 ; Other viral warts B07.8 and Allergic rhinitis J30.9 [place] [address] [address] Jan, Bipolar 1 disorder, mixed F3 1.60 [facility] [address] [facility] [id number] [address] [place] [address] Jan, Bipolar 1 disorder, mixed F3 1.60 [facility] [address] [facility] [id number] [address] [place] [address] Jan, [facility] [address] [place] [id number] [address] [place] [address] Jan, Bipolar 1 disorder, mixed F3 1.60 [facility] [address] [facility] [id number] [address] [place] [address] Jan, Bipolar 1 disorder, mixed F3 1.60 [place] [address] [place] [id number] [address] [place] [address] Jan, Allergic rhinitis J30.9 ; He maturia R31.9 and Colon cancer screening Z12.11 [place] [address] [facility] [id number] [address] [place] [address] Dec, Bipolar 1 disorder, mixed F3 1.60 [place] [address] [facility] [id number] [address] [place] [address] Dec, Bipolar 1 disorder, mixed F3 1.60 ; Generalized anxiety disorder F41.1 and Other detention (current) drug therapy Z79.899 [place] [address] [place] [id number] [address] [place] [address] Dec, Bipolar 1 disorder, mixed F3 1.60 [facility] [address] [facility] [id number] [address] [place] [address] Dec, Bipolar 1 disorder, mixed F3 1.60 [place] [address] [place] [id number] [address] [place] [address] Dec, Bipolar 1 disorder, mixed F3 1.60 [facility] [address] [place] [id number] [address] [place] [address] Dec, Low back pain M54.5 and Recu rrent urinary tract infection N39.0 [facility] [address] [id number] [address] [place] [address] Nov, Bipolar 1 disorder, mixed F3 1.60 [facility] [address] [id number] [address] [place] [address] Nov, Bipolar 1 disorder, mixed F3 1.60 [facility] [address] [facility] [id number] [address] [place] [address] Nov, Bipolar 1 disorder, mixed F3 1.60 [facility] [address] [id number] [address] [place] [address] Nov, Bipolar 1 disorder, mixed F3 1.60 [facility] [address] [facility] [id number] [address] [place] [address] Nov, [facility] [address] [facility] [id number] [address] [place] [address] Nov, Anesthesia of skin R20.0 ; F requent UTI N39.0 ; Tobacco abuse Z72.0 and Colon cancer screening Z12.11 [facility] [address] [facility] [id number] [address] [place] [address] Nov, Bipolar 1 disorder, mixed F3 1.60 [facility] [address] [facility] [id number] [address] [place] [address] October, Bipolar 1 disorder, mixed F3 1.60 [facility] [address] [facility] [id number] [address] [place] [address] October, Bipolar 1 disorder, mixed F3 1.60 [facility] [address] [facility] [id number] [address] [place] [address] October, Bipolar 1 disorder, mixed F3 1.60 [facility] [address] [facility] [id number] [address] [place] [address] October, Bipolar 1 disorder, mixed F3 1.60 [facility] [address] [facility] [id number] [address] [place] [address] October, Bipolar 1 disorder, mixed F3 1.60 [place] [address] [address] October, Cervicalgia M54.2 and Bipola r 1 disorder, mixed F31.60 [place] [address] [address] October, Hypertension I10 ; Hyperlipi demia, unspecified hyperlipidemia type E78.5 and Family history of thyroid disease Z83.49 [place] [address] [address] October, [place] [address] [place] [address] October, Hypertension I10 ; Hyperlipi demia, unspecified hyperlipidemia type E78.5 and Family history of thyroid problem Z83.49 [place] [address] [address] October, Bipolar 1 disorder, mixed F3 1.60 [place] [address] [address] Sep, Bipolar 1 disorder, mixed F3 1.60 [place] [address] [address] Sep, Bipolar 1 disorder, mixed F3 1.60 [place] [address] [address] Sep, Bipolar 1 disorder, mixed F3 1.60 [place] [address] [address] Sep, History of colon polyps Z86. 010 and Hematochezia K92.1 [place] [address] [address] Sep, Major depressive disorder, r ecurrent episode, moderate F33.1 [place] [address] [address] Sep, Bipolar 1 disorder, mixed F3 1.60 [facility] [address] [facility] [id number] [address] [place] [address] Aug, Hot flashes due to menopause N95.1 [facility] [address] [facility] [id number] [address] [place] [id number] Aug, Bipolar 1 disorder, mixed F3 1.60 [facility] [address] [place] [id number] [address] [place] [address] Aug, [facility] [address] [facility] [id number] [address] [place] [address] Aug, Bipolar 1 disorder, mixed F3 1.60 [facility] [address] [place] [id number] [address] [place] [id number] Aug, Bipolar 1 disorder, mixed F3 1.60 [facility] [address] [place] [id number] [address] [place] [address] Aug, Hot flashes due to menopause N95.1 ; Cervicalgia M54.2 and Ataxia R27.0 [facility] [address] [facility] [id number] [address] [place] [address] Jul, Bipolar 1 disorder, mixed F3 1.60 [facility] [address] [place] [id number] [address] [place] [address] Jul, Bipolar 1 disorder, mixed F3 1.60 [facility] [address] [place] [id number] [address] [place] [id number] Jul, Bipolar 1 disorder, mixed F3 1.60 [facility] [address] [place] [id number] [address] [place] [address] Jul, Bipolar 1 disorder, mixed F3 1.60 [facility] [address] [place] [id number] [address] [place] [id number] Jul, Bipolar 1 disorder, mixed F3 1.60 [facility] [address] [place] [id number] [address] [place] [address] Jul, Cervicalgia M54.2 ; Tremor R 25.1 ; Hearing abnormally acute, unspecified laterality H93.239 ; Alopecia L65.9 ; Encounter for immunization Z23 and Family history of thyroid disease Z83.49 [facility] [address] [place] [id number] 06 Jul, 2016 Bipolar 1 disorder, mixed F3 1.60 [place] [address] [place] [address] Jun, [place] [address] [place] [address] Jun, Hearing disorder, unspecifie d laterality H93.299 [place] [address] [place] [address] Jun, Bipolar 1 disorder, mixed F3 1.60 [place] [address] [place] [address] Jun, Bipolar 1 disorder, mixed F3 1.60 [place] [address] [address] Jun, Allergic rhinitis J30.9 [place] [address] [address] Jun, Bipolar 1 disorder, mixed F3 1.60 [place] [address] [address] Jun, Bipolar 1 disorder, mixed F3 1.60 [place] [address] [address] Jun, Allergic rhinitis J30.9 [place] [address] [address] Jun, Allergic rhinitis J30.9 [place] [address] [address] Jun, Bipolar 1 disorder, mixed F3 1.60 [place] [address] [place] [address] May, Bipolar 1 disorder, mixed F3 1.60 [facility] [address] [place] [id number] [address] [place], [place] [id number] May, Bipolar 1 disorder, mixed F3 1.60 [facility] [address] [place] [id number] [address] [place] [address] May, [facility] [address] [place] [id number] [place] [address] May, Bipolar 1 disorder, mixed F3 1.60 [facility] [address] [place] [id number] [address] [place] [phone] May, Bipolar 1 disorder, mixed F3 1.60 [facility] [address] [address] May, [facility] [address] [address] May, [facility] [address] [address] May, [facility] [address] [address] May, Abdominal pain, unspecified location R10.9 [facility] [address] [address] May, [facility] [address] [address] Apr, Hematuria R31.9 ; Ataxia R27 .0 and Hearing loss, unspecified laterality H91.90 [facility] [address] [address] Apr, Bipolar 1 disorder, mixed F3 1.60 [facility] [address] [place] [id number] [address] [place] [address] Apr, Acute effusion of both middl e ears H65.193 [facility] [address] [address] 10 Apr, 2016 Hematuria R31.9 and Pyelonep hritis N12 [place] [address] [address] Apr, [place] [address] [address] Mar, Bipolar 1 disorder, mixed F3 1.60 [place] [address] [address] Mar, [place] [address] [address] Mar, Bipolar 1 disorder, mixed F3 1.60 [place] [address] [address] Mar, Bipolar 1 disorder, mixed F3 1.60 [place] [address] [address] Mar, Encounter for immunization Z 23 and Gastritis without bleeding, unspecified chronicity, unspecified gastritis type K29.70 [place] [address] [address] Mar, Bipolar 1 disorder, mixed F3 1.60 and Grief F43.20 [place] [address] [address] Mar, Gastritis without bleeding, unspecified chronicity, unspecified gastritis type K29.70 [place] [address] [address] Mar, Bipolar 1 disorder, mixed F3 1.60 [place] [address] [address] Mar, Gastritis without bleeding, unspecified chronicity, unspecified gastritis type K29.70 [place] [address] [address] Mar, [facility] [address] [place] [id number] [address] [place] [address] Feb, Bipolar 1 disorder, mixed F3 1.60 [place] [address] [place] [id number] [place] [address] Feb, Bipolar 1 disorder, mixed F3 1.60 and Grief F43.20 [facility] [address] [place] [address] Feb, Gastritis without bleeding, unspecified chronicity, unspecified gastritis type K29.70 [facility] [id number] [place] [address] 14 Feb, 2016 Bipolar 1 disorder, mixed F3 1.60 [facility] [address] [place] [id number] [address] [place] [id number] 09 Feb, 2016 Gastroesophageal reflux dise ase, esophagitis presence not specified K21.9 [place] [address] [place] [id number] [address] [place] [address] Jan, Bipolar 1 disorder, mixed F3 1.60 [place] [address] [address] Jan, Bipolar 1 disorder, mixed F3 1.60 and Unsteady gait R26.81 [place] [address] [place] [id number] [address] [place] [address] Jan, Bipolar 1 disorder, mixed F3 1.60 [place] [address] [place] [id number] [address] [place] [address] Jan, Bipolar 1 disorder, mixed F3 1.60 and 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 [place] [address] [place] [address] Jan, Bipolar 1 disorder, mixed F3 1.60 [place] [address] [place] [id number] [address] [place] [address] Jan, Bipolar 1 disorder, mixed F3 1.60 [place] [address] [place] [id number] [address] [place] [address] Jan, Bipolar 1 disorder, mixed F3 1.60 ; Grief F43.20 and Other detention (current) drug therapy Z79.899 [place] [address] [place] [id number] [address] [place] [address] Jan, Bipolar 1 disorder, mixed F3 1.60 [place] [address] [place] [id number] [address] [place] [address] Dec, [place] [address] [place] [id number] [place] [address] Dec, Bipolar 1 disorder, mixed F3 1.60 ; Vitamin D deficiency, unspecified E55.9 ; H/O allergic rhinitis Z87.09 ; Other chronic pain G89.29 and Dorsalgia, unspecified M54.9 [place] [address] [place] [id number] [address] [place] [address] Dec, [place] [address] [place] [id number] [address] [place] [address] Dec, Bipolar 1 disorder, mixed F3 1.60 [place] [address] [place] [id number] [place] [address] Dec, Major depressive disorder, r ecurrent episode, moderate F33.1 [place] [address] [place] [id number] [place] [address] Dec, Major depressive disorder, r ecurrent episode, moderate F33.1 [place] [address] [place] [id number] [place] [address] Nov, [place] [address] [place] [id number] [place] [address] Nov, Bipolar 1 disorder, mixed F3 1.60 [place] [address] [place] [id number] [address] [place] [address] Nov, Major depressive disorder, r ecurrent episode, moderate F33.1 [place] [address] [facility] [id number] [address] [place] [address] Nov, Cervicalgia M54.2 ; Arthralg ia of hip, unspecified laterality M25.559 ; Allergic rhinitis J30.9 and Hormone replacement therapy Z79.890 [facility] [address] [facility] [id number] [address] [place] [address] Nov, Other seasonal allergic rhin itis J30.2 [facility] [address] [facility] [id number] [address] [place] [address] October, Major depressive disorder, r ecurrent episode, moderate F33.1 [place] [address] [facility] [id number] [address] [place] [id number] October, Major depressive disorder, r ecurrent episode, moderate F33.1 and Arthralgia of hip, unspecified laterality M25.559 [place] [address] [facility] [id number] [address] [place] [address] October, Grief F43.20 ; Hypertension I10 ; Hyperlipidemia, unspecified hyperlipidemia type E78.5 ; Other chronic pain G89.29 and Allergic rhinitis, unspecified allergic rhinitis type J30.9 [place] [address] [facility] [id number] [address] [place] [address] October, Major depressive disorder, r ecurrent episode, moderate F33.1 [place] [address] [facility] [id number] [address] [place] [address] Sep, Major depressive disorder, r ecurrent episode, moderate F33.1 [place] [address] [facility] [id number] [address] [place] [address] Sep, [place] [address] [facility] [id number] [address] [place] [address] Sep, Major depressive disorder, r ecurrent episode, moderate F33.1 [place] [address] [facility] [id number] [address] [place] [address] Sep, Grief F43.20 [place] [address] [facility] [id number] [address] [place] [phone] Aug, Major depressive disorder, r ecurrent episode, moderate F33.1 [place] [id number] [facility] [id number] [address] [place] [address] Aug, Bipolar 1 disorder, mixed F3 1.60 [place] [address] [facility] [id number] [address] [place] [id number] Aug, Allergic rhinitis J30.9 ; Ce rvicalgia M54.2 and Low back pain M54.5 [place] [address] [facility] [id number] [address] [place] [address] Aug, Major depressive disorder, r ecurrent episode, moderate F33.1 [facility] [address] [facility] [id number] [address] [place] [address] Aug, Sinusitis J32.9 and Tobacco 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 [place] [address] [place] [id number] [address] [place] [address] Aug, [facility] [address] [place] [id number] [address] [place] [id number] Aug, Depressive disorder, not els ewhere classified F32.9 ; Hormone replacement therapy Z79.[address] scan, head R93.0 [place] [address] [place] [id number] [address] [place] [id number] Aug, Major depressive disorder, r ecurrent episode, moderate F33.1 [facility] [address] [facility] [id number] [address] [place] [phone] Jul, Major depressive disorder, r ecurrent episode, moderate F33.1 [place] [address] [facility] [id number] [address] [place] [phone] Jul, Abdominal pain R10.9 and Hyp ertension I10 [place] [address] [place] [id number] [address] [place] [phone] Jul, [place] [address] [id number] [address] [place] [id number] 05 Jul, 2015 Major depressive disorder, r ecurrent episode, moderate F33.1 [facility] [address] [id number] [address] [place] [id number] 04 Jul, 2015 [facility] [address] [id number] [address] [place] [phone] Jul, [facility] [address] [id number] [address] [place] [phone] Jun, [facility] [address] [id number] [address] [place] [id number] Jun, Depressive disorder, not els ewhere classified F32.9 [facility] [address] [id number] [address] [place] [id number] Jun, [place] [address] [facility] [id number] [address] [place] [id number] Jun, [place] [id number] [facility] [id number] [address] [place] [id number] Jun, Arthralgia of hip, unspecifi ed laterality M25.559 ; Bruising, spontaneous R23.3 and Night sweats R61 [facility] [address] N [facility] [id number] [address] [place] [phone] Jun, [facility] [address] [facility] [id number] [address] [place] [id number] Jun, [facility] [address] [facility] [id number] [address] [place] [phone] May, [place] [address] [facility] [id number] [address] [place] [id number] May, Myalgia M79.1 and Screening, lipid Z13.220 [facility] [address] [facility] [id number] [address] [place] [id number] 10 Apr, 2015 Status post cervical spinal fusion Z98.1 ; Fibromyalgia M79.7 and Unsteady gait R26.81 [facility] [address] [id number] [address] [place] [id number] Nov, [facility] [address] [id number] [address] [place] [id number] Nov, [facility] [address] [facility] [id number] [address] [place] [phone] October, [facility] [address] [id number] [address] [place] [phone] October, [facility] [address] [facility] [id number] [address] [place] [phone] October, [facility] [address] [facility] [id number] [address] [place] [phone] October, [facility] [address] [facility] [id number] [address] [place] [phone] October, [facility] [address] [facility] [id number] [address] [place] [phone] October, Dysuria 788.1 ; Nausea 787.0 2 and Urinary tract infection 599.0 [facility] [address] [facility] [id number] [address] [place] [id number] Sep, [facility] [address] [facility] [id number] [address] [place] [phone] Sep, [facility] [address] [facility] [id number] [address] [place] [phone] Aug, [facility] [address] [facility] [id number] [address] [place] [phone] Aug, [facility] [address] [facility] [id number] [address] [place] [phone] Aug, [facility] [address] [facility] [id number] [address] [place] [phone] Aug, [facility] [address] [facility] [id number] [address] [place] [phone] 23 Aug, 2014 [facility] [address] [id number] [facility] [place] [address] 19 Aug, 2014 [facility] [address] [id number] [address] [place] [address], [place] [address] 19 Aug, 2014 [facility] [address] [id number] [address] [place] [address], [place] [address] 19 Aug, 2014 [facility] [address] [id number] [address] [place] [address], [place] [address] 19 Aug, 2014 [facility] [address] [id number] [address] [place] [address], [place] [address] 18 Aug, 2014 [facility] [address] [id number] [address] [place] [address], [place] [address] 18 Aug, 2014 [facility] [address] [id number] [address] [place] [address], [place] [address] 13 Aug, 2014 [facility] [address] [id number] [address] [place] [address], [place] [address] 13 Aug, 2014 [facility] [address] [id number] [address] [place] [address], [place] [address] 11 Aug, 2014 [facility] [address] [id number] [address] [place] [address], [place] [address] 11 Aug, 2014 [facility] [address] [id number] [address] [place] [address], [place] [address] 06 Aug, 2014 [facility] [address] [id number] [address] [place] [address], [place] [address] 06 Aug, 2014 [facility] [address] [id number] [address] [place] [address], [place] [address] 05 Aug, 2014 [facility] [address] [id number] [address] [place] [address], [place] [address] 05 Aug, 2014 [facility] [address] [id number] [address] [place] [address], [place] [address] 04 Aug, 2014 [facility] [address] [id number] [address] [place] [address], [place] [address] Aug, [facility] [address] [id number] [address] [place] [address], [place] [address] Aug, [facility] [address] [id number] [address] [place] [address], [place] [address] Jul, 2014 [facility] [address] [id number] [address] [place] [address], [place] [address] Jul, 2014 [facility] [address] [id number] [address] [place] [address], [place] [address] Jul, 2014 [facility] [address] [id number] [address] [place] [address], [place] [address] Jul, 2014 [facility] [address] [id number] [address] [place] [address], [place] [address] Jul, 2014 [facility] [address] [id number] [address] [place] [address], [place] [address] Jul, 2014 [facility] [address] [id number] [address] [place] [address], [place] [address] Jul, [facility] [address] [id number] [address] [place] [address], [place] [address] Jul, 2014 [facility] [address] [id number] [address] [place] [address], [place] [address] Jul, [facility] [address] [id number] [address] [place] [address], [place] [address] Jul, 2014 [facility] [address] [id number] [address] [place] [address], [place] [address] Jul, 2014 [facility] [address] [id number] [address] [place] [address], [place] [address] Jul, 2014 [facility] [address] [id number] [address] [place] [address], [place] [address] Jul, 2014 [facility] [address] [id number] [address] [place] [address] [place] [address] Jul, [facility] [address] [id number] [address] [place] [address], [place] [address] Jun, [facility] [address] [id number] [address] [place] [address], [place] [address] Jun, [facility] [address] [id number] [address] [place] [address], [place] [address] Jun, [facility] [address] [id number] [address] [place] [address], [place] [address] Jun, [facility] [address] [id number] [address] [place] [address], [place] [address] Jun, [facility] [address] [id number] [address] [place] [address], [place] [address] Jun, [facility] [address] [id number] [address] [place] [address], [place] [address] May, [facility] [address] [id number] [address] [place] [address], [place] [address] May, [facility] [address] [id number] [address] [place] [address], [place] [address] May, [facility] [address] [id number] [address] [place] [address], [place] [address] May, [facility] [address] [id number] [address] [place] [address], [place] [address] May, [facility] [address] [id number] [address] [place] [address], [place] [address] May, [facility] [address] [id number] [address] [place] [address], [place] [address] Apr, [facility] [address] [id number] [address] [place] [address], [place] [address] Apr, [facility] [address] [id number] [address] [place] [address], [place] [address] Apr, [facility] [address] [id number] [address] [place] [address], [place] [address] Apr, [facility] [address] [id number] [address] [place] [address], [place] [address] Apr, [facility] [address] [id number] [address] [place] [address], [place] [address] Apr, [facility] [address] [id number] [address] [place] [address], [place] [address] Mar, [facility] [address] [id number] [address] [place] [address], [place] [address] Mar, [facility] [address] [id number] [address] [place] [address], [place] [address] Mar, [facility] [address] [id number] [address] [place] [address], [place] [address] Mar, [facility] [address] [id number] [address] [place] [address], [place] [address] Mar, [facility] [address] [id number] [address] [place] [address], [place] [address] Mar, [facility] [address] [id number] [address] [place] [address], [place] [address] Mar, [facility] [address] [id number] [address] [place] [address], [place] [address] Mar, [facility] [address] [id number] [address] [place] [address], [place] [address] Mar, [facility] [address] [id number] [address] [place] [address], [place] [address] Mar, [facility] [address] [id number] [address] [place] [address], [place] [address] Mar, [facility] [address] [id number] [address] [place] [address], [place] [address] Mar, [facility] [address] [id number] [address] [place] [address], [place] [address] 30 Feb, 2014 [facility] [address] [id number] [facility] [place] [address] 29 Feb, 2014 [facility] [address] [id number] [address] [place] [address], [place] [address] 29 Feb, 2014 [facility] [address] [id number] [address] [place] [address], [place] [address] Feb, [facility] [address] [id number] [address] [place] [address], [place] [address] Feb, [facility] [address] [id number] [address] [place] [address], [place] [address] Feb, [facility] [address] [id number] [address] [place] [address], [place] [address] Feb, [facility] [address] [id number] [address] [place] [address], [place] [address] Jan, [facility] [address] [id number] [address] [place] [address], [place] [address] Jan, [facility] [address] [id number] [address] [place] [address], [place] [address] Jan, [facility] [address] [id number] [address] [place] [address], [place] [address] Dec, [facility] [address] [id number] [address] [place] [address], [place] [address] Dec, [facility] [address] [id number] [address] [place] [address], [place] [address] Dec, [facility] [address] [id number] [address] [place] [address], [place] [address] Dec, [facility] [address] [id number] [address] [place] [address], [place] [address] Sep, [facility] [address] [id number] [address] [place] [address], [place] [address] Sep, [facility] [address] [id number] [address] [place] [address], [place] [address] Sep, [facility] [address] [id number] [address] [place] [address], [place] [address] Sep, [facility] [address] [id number] [address] [place] [address], [place] [address] Sep, [facility] [address] [id number] [address] [place] [address], [place] [address] Sep, [facility] [address] [id number] [address] [place] [address], [place] [address] Sep, [facility] [address] [id number] [address] [place] [address], [place] [address] Sep, [facility] [address] [id number] [address] [place] [address], [place] [address] Aug, [facility] [address] [id number] [address] [place] [address], [place] [address] Aug, [facility] [address] [id number] [address] [place] [address], [place] [address] May, [facility] [address] [id number] [address] [place] [address], [place] [address] May, [facility] [address] [id number] [address] [place] [address], [place] [address] Apr, [facility] [address] [id number] [address] [place] [address], [place] [address] Apr, [facility] [address] [id number] [address] [place] [address], [place] [address] Apr, [facility] [address] [id number] [address] [place] [address], [place] [address] Apr, [facility] [address] [id number] [address] [place] [address], [place] [address] Apr, [facility] [address] [id number] [address] [place] [address], [place] [address] Apr[facility] [address] [id number] [address] [place] [address], [place] [address] 18 May, 2012 [facility] [address] [id number] [address] [place] [address], [place] [address] 18 May, 2012 [facility] [address] [id number] [address] [place] [address], [place] [address] 15 May, 2012 [facility] [address] [id number] [address] [place] [address], [place] [address] 15 May, 2012 [facility] [address] [id number] [address] [place] [address], [place] [address] 13 May, 2012 [facility] [address] [id number] [address] [place] [address], [place] [address] 13 May, 2012 [facility] [address] [id number] [address] [place] [address], [place] [address] 13 Apr, 2012 [facility] [address] [id number] [address] [place] [address], [place] [address] 13 Apr, 2012 [facility] [address] [id number] [address] [place] [address], [place] [address] Apr, [facility] [address] [id number] [address] [place] [address], [place] [address] Apr, [facility] [address] [id number] [address] [place] [address], [place] [address] Apr, [facility] [address] [id number] [address] [place] [address], [place] [address] Apr, [facility] [address] [id number] [address] [place] [address], [place] [address] Apr, [facility] [address] [id number] [address] [place] [address], [place] [address] Apr, [facility] [address] [id number] [address] [place] [address], [place] [address] Apr, [facility] [address] [id number] [address] [place] [address] Apr, [facility] [address] [id number] [address] [place] [address], [place] [address] Mar, [facility] [address] [id number] [address] [place] [id number] Mar, [facility] [address] [id number] [address] [place] [address], [place] [address] Mar, [facility] [address] [id number] [address] [place] [id number] Mar, [facility] [address] [id number] [address] [place] [address], [place] [address] Mar, [facility] [address] [id number] [address] [place] [address], [place] [address] Mar, [facility] [address] [id number] [address] [place] [address] Mar, [facility] [address] [id number] [address] [place] [address], [place] [address] Mar, [facility] [address] [id number] [address] [place] [address] Mar, [facility] [address] [id number] [address] [place] [phone] Feb, [facility] [address] [id number] [address] [place] [address] 16 Feb, 2012 [facility] [address] [id number] [address] [place] [phone] Feb, [facility] [address] [id number] [address] [place] [id number] Jan, [facility] [address] [id number] [address] [place] [id number] Jan, [facility] [address] [id number] [address] [place] [address], [place] [address] Jan, [facility] [address] [id number] [address] [place] [address], [place] [address] 18 Jan, 2012 [facility] [address] [id number] [address] [place] [address], [place] [address] Jan, [facility] [address] [id number] [address] [place] [address], [place] [address] Jan, [facility] [address] [id number] [address] [place] [address], [place] [address] 16 Jan, 2012 [facility] [address] [id number] [address] [place] [address], [place] [address] Jan, [facility] [address] [id number] [address] [place] [address], [place] [address] Jan, [facility] [address] [id number] [address] [place] [address], [place] [address] Jan, [facility] [address] [id number] [address] [place] [address], [place] [address] Dec, [facility] [address] [id number] [address] [place] [address], [place] [address] Dec, [facility] [address] [id number] [address] [place] [address], [place] [address] Dec, [facility] [address] [id number] [address] [place] [address], [place] [address] Dec, [facility] [address] [id number] [address] [place] [address], [place] [address] Nov, [facility] [address] [id number] [address] [place] [address], [place] [address] Nov, [facility] [address] [id number] [address] [place] [address], [place] [address] Nov, [facility] [address] [id number] [address] [place] [address], [place] [address] October, [facility] [address] [id number] [address] [place] [address], [place] [address] October, [facility] [address] [id number] [address] [place] [id number] October, [facility] [address] [id number] [address] [place] [id number] October, [facility] [address] [id number] [address] [place] [id number] October, [facility] [address] [id number] [address] [place] [id number] October, [facility] [address] [id number] [address] [place] [id number] Aug, [facility] [address] [id number] [address] [place] [id number] Mar, [facility] [address] [id number] [address] [place] [id number] Nov, [facility] [address] [id number] [address] [place] [id number] May, [facility] [address] [id number] [address] [place] [phone] May, [facility] [address] [id number] [address] [place] [phone] Apr, [facility] [address] [id number] [address] [place] [id number] Mar, [facility] [address] [id number] [address] [place] [phone] Mar, IMMUNIZATIONS No Known Immunizations SOCIAL HISTORY Never Assessed REASON FOR VISIT PLAN OF CARE VITAL SIGNS Height 64 in 2013-05-16 Weight 141.5 lbs 2013-05-16 Temperature 99.4 degrees Fahrenheit 2013-05-16 Heart Rate 100 bpm 2013-05-16 Respiratory Rate 20 2013-05-16 Blood pressure systolic 121 mmHg 2013-05-16 Blood pressure diastolic 68 mmHg 2013-05-16 MEDICATIONS Unknown Medications RESULTS No Results PROCEDURES [...]
--- OUTSIDE RECORDS SUMMARY | 2020-02-02 19:38 | XMS REPORT ---
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 Name Role Phone DAVEY STEPHENSON Unavailable PROBLEMS Type Condition ICD9-CM Code ZUO12-ZR Code Onset Dates Condition S tatus SNOMED Code Problem Night sweats R61 Active 9185031 0 Problem Hypertension I10 Active 5638071 3 Problem Arthralgia of hip, unspecified laterality M25.559 Active 71927259 Problem Other chronic pain G89.29 Active 8 9594587 Problem Grief F43.20 Active 79217277 Problem Gastritis without bleeding, unspecified chronicity, unspecified gastritis type K29.70 Active 467063201 Problem Hyperlipidemia, unspecified hyperlipidemia type E7 8.5 Active 16269902 Problem Acute left-sided low back pain with left-sided sciatica M54.42 Active 915934751 Problem Abnormal CT scan, head R93.0 Active 156886574 Problem Bladder spasm N32.89 Active 326540 006 Problem Age-related osteoporosis without current pathological fracture M81.0 Active 28392081 Problem Bruising, spontaneous R23.3 Active 942911698 Problem Sensorineural hearing loss (SNHL) of both ears H90 .3 Active 337556316 Problem History of colon polyps Z86.010 Active 720933231 Problem Allergic rhinitis J30.9 Active 61 015348 Problem Hematuria, unspecified type R31.9 Ac tive 46342161 Problem Generalized anxiety disorder F41.1 A ctive 11239458 Problem Imbalance R26.89 Active 286805815 Problem Hammer toe of right foot M20.41 Activ e 950392013 Problem Fibromyalgia M79.7 Active 8173121 7 Problem Hormone replacement therapy Z79.890 Ac tive 119966466 Problem Major depressive disorder, recurrent episode, moderate F33.1 Active 472946912 Problem Sciatica of left side M54.32 Active 43249840 Problem Plantar wart of right foot B07.0 Act mitchell [id number] Problem Slow transit constipation K59.01 Acti ve 31071466 Problem Osteoporotic compression fracture of spine with delayed healing M80.88XG Active 44269919 Problem Ataxia R27.0 Active 01332248 Problem Age-related osteoporosis wit h current pathological fracture with delayed healing, subsequent encounter M80.00XG Active 524715298 Problem Bipolar 1 disorder, mixed F31.60 Acti ve 67299406 Problem Hearing loss, unspecified laterality H91.90 Active 48029751 Problem Tobacco use disorder F17.200 Active 586817704 Problem Post menopausal syndrome N95.1 Activ e 228669306 Problem Sciatica of right side M54.31 Active 62036137 Problem Hearing loss, unspecified hearing loss type, uns pecified laterality H91.90 Active 51171837 ALLERGIES No Information ENCOUNTERS Encounter Location Date Diagnosis [place] [address] [address] 07 Dec, 2019 [facility] [address] [address] Dec, [facility] [address] [address] Nov, [facility] [address] [address] 16 Nov, 2019 Encounter for laboratory abi tinmeir for COVID-19 virus Z11.59 [facility] [address] [address] 11 Nov, 2019 [facility] [address] [place] [id number] [place] [address] 20 Oct, 2019 Bipolar 1 disorder, mixed F3 1.60 [facility] [address] [address] 15 Oct, 2019 [facility] [address] [address] October, [facility] [address] [address] 14 Oct, 2019 [place] [address] [facility] [id number] [address] [place] [id number] October, [facility] [address] [facility] [id number] [address] [place] [address] October, Acute non-recurrent frontal sinusitis J01.10 [place] [address] [address] [facility] [id number] [address] [place] [address] October, Compression fracture of L1 v ertebra, sequela S32.010S [place] [address] [address] [facility] [id number] [address] [place] [address] October, Bipolar 1 disorder, mixed F3 1.60 [facility] [address] [facility] [id number] [address] [place] [address] October, Mouth pain K13.79 [place] [address] [address] [facility] [id number] [address] [place] [id number] 28 Sep, 2019 [place] [address] [address] [place] [id number] [address] [place] [address] Sep, Age-related osteoporosis wit h current pathological fracture with delayed healing, subsequent encounter M80.00XG and Sore in mouth K13.79 [place] [address] [facility] [id number] [address] [place] [phone] Sep, [place] [address] [address] [facility] [id number] [address] [place] [address] Sep, Bipolar 1 disorder, mixed F3 1.60 [place] [address] [address] [facility] [id number] [address] [place] [address] 15 Sep, 2019 Compression fracture of L1 v ertebra, sequela S32.010S ; Tobacco use disorder F17.200 ; Age-related osteoporosis with current pathological fracture with routine healing, subsequent encounter M80.00XD ; Allergic rhinitis J30.9 ; Generalized anxiety disorder F41.1 and Recurrent UTI N39.0 [place] [address] [address] [facility] [id number] [address] [place] [id number] 14 Sep, 2019 Bipolar 1 disorder, mixed F3 1.60 ; Generalized anxiety disorder F41.1 and Tobacco use disorder F17.200 [facility] [address] [place] [id number] 13 Sep, 2019 [facility] [address] [place] [id number] [address] [place] [id number] 08 Sep, 2019 Bipolar 1 disorder, mixed F3 1.60 [facility] [address] [place] [id number] 23 Aug, 2019 [facility] [address] [place] [id number] [address] [place] [id number] 23 Aug, 2019 Yeast vaginitis B37.3 [facility] [address] [place] [id number] [address] [place] [id number] 14 Aug, 2019 Vaginal discharge N89.8 [facility] [address] [address] 10 Aug, 2019 Bipolar 1 disorder, mixed F3 1.60 [place] [address] [place] [address] 04 Aug, 2019 Age-related osteoporosis wit h current pathological fracture with routine healing, subsequent encounter M80.00XD [place] [address] [address] [place] [id number] [place] [address] 24 Jul, 2019 Age-related osteoporosis wit h current pathological fracture with routine healing, subsequent encounter M80.00XD [facility] [address] [place] [id number] 24 Jul, 2019 Osteoporotic compression fra cture of spine with delayed healing M80.88XG and Tobacco use disorder F17.200 [place] [address] [address] [place] [id number] [place] [address] 11 Jul, 2019 Bipolar 1 disorder, mixed F3 1.60 [facility] [address] [place] [id number] 07 Jul, 2019 [facility] [address] [place] [id number] [address] [place] [address] 03 Jul, 2019 Tobacco use disorder F17.200 [facility] [address] [facility] [id number] [address] [place] [id number] 15 Jun, 2019 Bipolar 1 disorder, mixed F3 1.60 [facility] [address] [facility] [id number] [address] [place] [id number] 07 Jun, 2019 Bipolar 1 disorder, mixed F3 1.60 ; Generalized anxiety disorder F41.1 and Tobacco use disorder F17.200 [facility] [address] [facility] [id number] [address] [place] [id number] 06 Jun, 2019 Tobacco use disorder F17.200 [facility] [address] [facility] [id number] [address] [place] [id number] May, [facility] [address] [place] [id number] [address] [place] [phone] May, Compression fracture of L1 v ertebra with routine healing, subsequent encounter S32.010D [facility] [address] [facility] [id number] [address] [place] [phone] May, [facility] [address] [facility] [id number] [address] [place] [phone] May, [facility] [address] [place] [id number] [address] [place] [phone] May, [facility] [address] [facility] [id number] [address] [place] [phone] May, [facility] [address] [facility] [id number] [address] [place] [id number] May, [facility] [address] [place] [id number] [address] [place] [phone] May, [facility] [address] [facility] [id number] [address] [place] [id number] May, [facility] [address] [place] [id number] [address] [place] [id number] May, Bipolar 1 disorder, mixed F3 1.60 [place] [address] [address] May, Closed fracture of right upp er extremity with routine healing, subsequent encounter S42.301D and Hearing loss, unspecified hearing loss type, unspecified laterality H91.90 [place] [address] [address] May, [place] [address] [address] Apr, Allergic rhinitis J30.9 ; Ab dominal pain, unspecified location R10.9 and Seborrheic keratosis L82.1 [place] [address] [address] Mar, Bipolar 1 disorder, mixed F3 1.60 [place] [address] [address] Mar, Bipolar 1 disorder, mixed F3 1.60 ; Generalized anxiety disorder F41.1 and Tobacco use disorder F17.[address] [address] Feb, Excessive gas R14.3 ; Other chronic pain G89.29 ; Encounter for immunization Z23 ; Hyperlipidemia, unspecified hyperlipidemia type E78.5 ; Bipolar 1 disorder, mixed F31.60 and Other mcc (current) drug therapy Z79.899 [place] [address] [address] Feb, Bipolar 1 disorder, mixed F3 1.60 [place] [address] [address] Jan, Sciatica of right side M54.3 1 ; Low back pain M54.5 and Major depressive disorder, recurrent episode, moderate F33.[address] [address] Jan, Bipolar 1 disorder, mixed F3 1.60 [facility] [address] [facility] [id number] [address] [place] [id number] Dec, Normal pelvic exam Z01.419 [facility] [address] [facility] [id number] [address] [place] [id number] Dec, Bipolar 1 disorder, mixed F3 1.60 [facility] [address] [facility] [id number] [address] [place] [id number] Nov, Bipolar 1 disorder, mixed F3 1.60 [facility] [address] [id number] [address] [place] [address] Nov, Bipolar 1 disorder, mixed F3 1.60 ; Generalized anxiety disorder F41.1 ; Tobacco use disorder F17.200 and Other mcc (current) drug therapy Z79.899 [facility] [address] [facility] [id number] [address] [place] [address] Nov, [facility] [address] [facility] [id number] [address] [place] [id number] Nov, Bipolar 1 disorder, mixed F3 1.60 [facility] [address] [facility] [id number] [address] [place] [id number] October, Bipolar 1 disorder, mixed F3 1.60 [facility] [address] [facility] [id number] [address] [place] [id number] October, Bipolar 1 disorder, mixed F3 1.60 [facility] [address] [facility] [id number] [address] [place] [id number] October, [facility] [address] [facility] [id number] [address] [place] [id number] October, Bipolar 1 disorder, mixed F3 1.60 ; Generalized anxiety disorder F41.1 and Tobacco use disorder F17.200 [facility] [address] [facility] [id number] [address] [place] [id number] Sep, [facility] [address] [facility] [id number] [address] [place] [id number] 24 Sep, 2018 Encounter for Medicare annua l wellness exam Z00.00 ; Major depressive disorder, recurrent episode, moderate F33.1 ; Allergic rhinitis J30.9 ; Bipolar 1 disorder, mixed F31.60 ; Fibromyalgia M79.7 ; Hyperlipidemia, unspecified hyperlipidemia type E78.5 ; Hormone replacement therapy Z79.890 ; Encounter for screening for lung cancer Z12.2 and Tobacco use disorder F17.200 [place] [address] [address] [facility] [id number] [address] [place] [id number] 23 Sep, 2018 Bipolar 1 disorder, mixed F3 1.60 [place] [address] [address] [facility] [id number] [address] [place] [address] Sep, Other chronic pain G89.29 ; Hyperlipidemia, unspecified hyperlipidemia type E78.5 ; Breast cancer screening Z12.31 and Post menopausal syndrome N95.1 [place] [address] [address] [facility] [id number] [address] [place] [id number] 16 Sep, 2018 Bipolar 1 disorder, mixed F3 1.60 [place] [address] [facility] [id number] [address] [place] [id number] 15 Sep, 2018 Bipolar 1 disorder, mixed F3 1.60 ; Generalized anxiety disorder F41.1 and Tobacco use disorder F17.200 [place] [address] [address] [facility] [id number] [address] [place] [phone] 11 Sep, 2018 Gastritis without bleeding, unspecified chronicity, unspecified gastritis type K29.70 [place] [address] [address] [facility] [id number] [address] [place] [address] Sep, Exercise counseling Z71.82 [place] [address] [facility] [id number] [address] [place] [id number] Aug, Exercise counseling Z71.82 [place] [address] [place] [id number] [address] [place] [id number] Aug, Bipolar 1 disorder, mixed F3 1.60 [place] [address] [facility] [id number] [address] [place] [id number] Aug, Exercise counseling Z71.82 [place] [address] [place] [address] Aug, Bipolar 1 disorder, mixed F3 1.60 [place] [address] [place] [id number] [address] [place] [phone] Aug, Gastritis without bleeding, unspecified chronicity, unspecified gastritis type K29.70 ; Tobacco abuse Z72.0 ; Generalized anxiety disorder F41.1 and Weight gain R63.5 [place] [address] [place] [address] Aug, Bipolar 1 disorder, mixed F3 1.60 ; Generalized anxiety disorder F41.1 and Tobacco use disorder F17.200 [place] [address] [address] Jul, Bipolar 1 disorder, mixed F3 1.60 [place] [address] [address] Jul, [place] [address] [address] Jul, Bipolar 1 disorder, mixed F3 1.60 [place] [address] [address] Jul, Allergic rhinitis J30.9 ; Ma darion depressive disorder, recurrent episode, moderate F33.1 and Tobacco 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 [place] [address] [place] [address] Jun, [place] [address] [place] [id number] [address] [place] [phone] Jun, [place] [address] [address] Jun, Bipolar 1 disorder, mixed F3 1.60 [place] [address] [place] [id number] [address] [place] [address] Jun, Bipolar 1 disorder, mixed F3 1.60 [place] [address] [facility] [id number] [address] [place] [address] Jun, Bipolar 1 disorder, mixed F3 1.60 [facility] [address] [facility] [id number] [address] [place] [address] Jun, Generalized anxiety disorder F41.1 ; Tobacco abuse Z72.0 and Major depressive disorder, recurrent episode, moderate F33.1 [facility] [address] [facility] [id number] [address] [place] [address] May, Bipolar 1 disorder, mixed F3 1.60 [facility] [address] [facility] [id number] [address] [place] [phone] May, Bipolar 1 disorder, mixed F3 1.60 and Generalized anxiety disorder F41.1 [place] [address] [place] [id number] [address] [place] [address] May, Bipolar 1 disorder, mixed F3 1.60 [place] [address] [place] [id number] [address] [place] [address] May, Allergic rhinitis J30.9 [place] [address] [place] [id number] [place] [id number] May, Bipolar 1 disorder, mixed F3 1.60 [facility] [address] [place] [id number] [address] [place] [address] May, [facility] [address] [place] [id number] [address] [place] [address] Apr, Allergic rhinitis J30.9 ; Dy sfunction of both eustachian tubes H69.83 ; History of bladder surgery Z98.890 and Cervicalgia M54.2 [facility] [address] [place] [id number] [address] [place] [address] Mar, Bipolar 1 disorder, mixed F3 1.60 [facility] [address] [place] [id number] [address] [place] [phone] Mar, [facility] [address] [place] [id number] [address] [place] [address] Mar, Slow transit constipation K5 9.01 ; Encounter for immunization Z23 and Generalized anxiety disorder F41.1 [facility] [address] [facility] [id number] [address] [place] [id number] 27 Feb, 2018 Bipolar 1 disorder, mixed F3 1.60 [facility] [address] [facility] [id number] [address] [place] [id number] 26 Feb, 2018 Allergic rhinitis J30.9 [facility] [address] [facility] [id number] [address] [place] [id number] 24 Feb, 2018 Bipolar 1 disorder, mixed F3 1.60 [facility] [address] [facility] [id number] [address] [place] [id number] 20 Feb, 2018 Bipolar 1 disorder, mixed F3 1.60 and Generalized anxiety disorder F41.1 [facility] [address] [facility] [id number] [address] [place] [id number] 13 Feb, 2018 Bipolar 1 disorder, mixed F3 1.60 [facility] [address] [facility] [id number] [address] [place] [phone] 11 Feb, 2018 Allergic rhinitis J30.9 [facility] [address] [facility] [id number] [address] [place] [id number] 05 Feb, 2018 [facility] [address] [facility] [id number] [address] [place] [id number] Jan, Bipolar 1 disorder, mixed F3 1.60 [facility] [address] [facility] [id number] [address] [place] [id number] Jan, Low back pain M54.5 ; Hyperl ipidemia, unspecified hyperlipidemia type E78.5 and Bipolar 1 disorder, mixed F31.60 [facility] [address] [facility] [id number] [address] [place] [id number] Jan, Bipolar 1 disorder, mixed F3 1.60 [facility] [address] [facility] [id number] [address] [place] [id number] Jan, Bipolar 1 disorder, mixed F3 1.60 [facility] [address] [facility] [id number] [address] [place] [phone] Jan, Bipolar 1 disorder, mixed F3 1.60 [facility] [address] [facility] [id number] [address] [place], [place] [address] Jan, Bipolar 1 disorder, mixed F3 1.60 [facility] [address] [facility] [id number] [address] [place] [phone] Dec, Bipolar 1 disorder, mixed F3 1.60 ; Generalized anxiety disorder F41.1 and Other mcc (current) drug therapy Z79.899 [facility] [address] [facility] [id number] [address] [place] [address] Dec, Other 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 long 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 (current) dr ug therapy Z79.899 [facility] [address] [facility] [id number] [address] [place] [address] Dec, Bipolar 1 disorder, mixed F3 1.60 [facility] [address] [facility] [id number] [address] [place] [id number] Dec, Bipolar 1 disorder, mixed F3 1.60 [facility] [address] [facility] [id number] [address] [place] [id number] Nov, Bipolar 1 disorder, mixed F3 1.60 [facility] [address] [facility] [id number] [address] [place] [id number] Nov, Bipolar 1 disorder, mixed F3 1.60 [facility] [address] [facility] [id number] [address] [place] [phone] Nov, Bipolar 1 disorder, mixed F3 1.60 [facility] [address] [facility] [id number] [address] [place] [id number] Nov, Allergic rhinitis J30.9 [facility] [address] [facility] [id number] [address] [place] [id number] Nov, Allergic rhinitis J30.9 [facility] [address] [facility] [id number] [address] [place] [id number] Nov, [facility] [address] [place] [address] Nov, Bipolar 1 disorder, mixed F3 1.60 [facility] [address] [place] [id number] [address] [place] [id number] Nov, Fibromyalgia M79.7 and Aller gic rhinitis J30.9 [facility] [address] [address] October, Bipolar 1 disorder, mixed F3 1.60 [facility] [address] [place] [id number] [place] [address] October, Acute nasopharyngitis J00 [facility]ALK IN [facility] [address] [address] October, Bitten or stung by nonvenomo us insect and other nonvenomous arthropods, initial encounter W57.XXXA and Insect bite (nonvenomous) of abdominal wall, initial encounter S30.861A [place] [address] [address] October, Insect bite (nonvenomous) of abdominal wall, initial encounter S30.861A ; Bitten or stung by nonvenomous insect and other nonvenomous arthropods, initial encounter W57.XXXA ; Allergic rhinitis J30.9 and Low back pain M54.5 [facility] [address] [place] [id number] [place] [id number] October, Bipolar 1 disorder, mixed F3 1.60 [facility] [address] [place] [id number] [place] [id number] October, [place] [address] [address] October, [facility] [address] [place] [id number] [place] [phone] October, Bipolar 1 disorder, mixed F3 1.60 [place] [address] [address] [place] [id number] [place] [id number] Sep, Bipolar 1 disorder, mixed F3 1.60 [facility] [address] [facility] [id number] [address] [place] [id number] Sep, Other chronic pain G89.29 [facility] [facility] [address] [facility] [id number] [address] [place] [phone] Sep, [facility] [address] [facility] [id number] [address] [place] [id number] Sep, Bipolar 1 disorder, mixed F3 1.60 [facility] [address] [facility] [id number] [address] [place] [id number] Sep, Allergic rhinitis J30.9 and Sciatica of left side M54.32 [facility] [address] [place] [id number] [address] [place] [phone] Sep, Bipolar 1 disorder, mixed F3 1.60 [facility] [address] [facility] [id number] [address] [place] [id number] Sep, Bipolar 1 disorder, mixed F3 1.60 and Generalized anxiety disorder F41.1 [facility] [address] [facility] [id number] [address] [place] [phone] Aug, [facility] [address] [facility] [id number] [address] [place] [phone] Aug, Bipolar 1 disorder, mixed F3 1.60 [facility] [address] [facility] [id number] [address] [place] [phone] Aug, Bipolar 1 disorder, mixed F3 1.60 [facility] [address] [facility] [id number] [address] [place] [phone] Aug, [facility] [address] [facility] [id number] [address] [place] [phone] Aug, Generalized anxiety disorder F41.1 [facility] [address] [facility] [id number] [address] [place] [phone] Aug, Bipolar 1 disorder, mixed F3 1.60 [facility] [address] [place] [id number] [address] [place] [phone] Aug, Plantar wart of right foot B 07.0 [facility] [address] [facility] [id number] [address] [place] [id number] Aug, Bipolar 1 disorder, mixed F3 1.60 [facility] [address] [place] [id number] [address] [place] [phone] Jul, Bipolar 1 disorder, mixed F3 1.60 [facility] [address] [place] [id number] [address] [place] [id number] Jul, [facility] [address] [place] [id number] [place] [address] Jul, Bipolar 1 disorder, mixed F3 1.60 [facility] [address] [place] [id number] [address] [place] [phone] Jul, Generalized anxiety disorder F41.1 [facility] [address] [place] [id number] [address] [place] [phone] Jul, Bipolar 1 disorder, mixed F3 1.60 [facility] [address] [place] [id number] [address] [place] [address] Jul, Acute left-sided low back pa in with left-sided sciatica M54.42 [facility] [address] [place] [id number] [address] [place] [id number] Jul, Coccydynia M53.3 [facility] [address] [place] [id number] [address] [place] [id number] Jun, Bipolar 1 disorder, mixed F3 1.60 [facility] [address] [place] [id number] [address] [place] [phone] Jun, Acute nasopharyngitis J00 [facility] [address] [place] [id number] [address] [place] [phone] Jun, Bipolar 1 disorder, mixed F3 1.60 [facility] [id number] [place] [phone] Jun, Fibromyalgia M79.7 [facility] [address] [place] [id number] [address] [place] [phone] Jun, Bipolar 1 disorder, mixed F3 1.60 [place] [address] [address] Jun, Fibromyalgia M79.7 and Bipol ar 1 disorder, mixed F31.60 [place] [address] [place] [id number] [place] [address] May, Bipolar 1 disorder, mixed F3 1.60 ; Generalized anxiety disorder F41.1 and Other mcc (current) drug therapy Z79.899 [place] [address] [address] May, Bipolar 1 disorder, mixed F3 1.60 [facility] [address] [address] 14 May, 2017 Cough R05 and Body aches R52 [facility] [address] [address] 10 May, 2017 Bladder spasm N32.89 and Acu te cystitis without hematuria N30.00 [place] [address] [address] May, Bipolar 1 disorder, mixed F3 1.60 [place] [id number] [place] [id number] [address] [place] [phone] Apr, [place] [address] [address] Apr, Major depressive disorder, r ecurrent episode, moderate F33.1 and Encounter for immunization Z23 [place] [address] [address] Apr, Bipolar 1 disorder, mixed F3 1.60 [place] [address] [place] [id number] [address] [place] [address] Apr, Bipolar 1 disorder, mixed F3 1.60 [facility] [address] [place] [address] Apr, Bipolar 1 disorder, mixed F3 1.60 [facility] [address] [address] Apr, Yeast vaginitis B37.3 [facility] [address] [place] [id number] [address] [place] [address] Apr, Bipolar 1 disorder, mixed F3 1.60 [facility] [address] [place] [address] Apr, Cellulitis L03.[address] for immunization Z23 [place] [address] [address] Apr, Bipolar 1 disorder, mixed F3 1.60 [place] [address] [address] Mar, Bipolar 1 disorder, mixed F3 1.60 [place] [address] [address] Mar, Bipolar 1 disorder, mixed F3 1.60 [place] [address] [address] Mar, Imbalance R26.89 [address] Encount er for immunization Z23 [facility] [address] [place] [id number] [address] [place] [address] Mar, Generalized anxiety disorder F41.1 [place] [address] [address] Mar, Bipolar 1 disorder, mixed F3 1.60 [facility] [address] [place] [id number] [address] [place] [address] Mar, Generalized anxiety disorder F41.1 [place] [address] [address] Mar, Bipolar 1 disorder, mixed F3 1.60 [place] [address] [place] [id number] Mar, Bipolar 1 disorder, mixed F3 1.60 [place] [address] [address] Feb, Bipolar 1 disorder, mixed F3 1.60 [place] [address] [address] Feb, Bipolar 1 disorder, mixed F3 1.60 and Generalized anxiety disorder F41.1 [place] [address] [address] Feb, Gastritis without bleeding, unspecified chronicity, unspecified gastritis type K29.70 ; Hammer toe of right foot M20.41 and Other viral warts B07.8 [place] [address] [address] Feb, Bipolar 1 disorder, mixed F3 1.60 [place] [address] [address] Feb, Bipolar 1 disorder, mixed F3 1.60 [place] [address] [address] Feb, Bipolar 1 disorder, mixed F3 1.60 [place] [address] [address] Jan, Encounter for screening mamm ogram for breast cancer Z12.31 ; Other viral warts B07.8 and Allergic rhinitis J30.9 [place] [address] [address] Jan, Bipolar 1 disorder, mixed F3 1.60 [place] [address] [address] Jan, Bipolar 1 disorder, mixed F3 1.60 [facility] [address] [facility] [id number] [address] [place] [address] Jan, [facility] [address] [place] [id number] [place] [address] Jan, Bipolar 1 disorder, mixed F3 1.60 [facility] [address] [place] [id number] [address] [place] [phone] Jan, Bipolar 1 disorder, mixed F3 1.60 [place] [address] [address] Jan, Allergic rhinitis J30.9 ; He maturia R31.9 and Colon cancer screening Z12.11 [place] [address] [place] [id number] [place] [address] Dec, Bipolar 1 disorder, mixed F3 1.60 [place] [address] [address] Dec, Bipolar 1 disorder, mixed F3 1.60 ; Generalized anxiety disorder F41.1 and Other mcc (current) drug therapy Z79.899 [place] [address] [address] Dec, Bipolar 1 disorder, mixed F3 1.60 [place] [address] [address] Dec, Bipolar 1 disorder, mixed F3 1.60 [place] [address] [place] [id number] [address] [place] [address] Dec, Bipolar 1 disorder, mixed F3 1.60 [place] [address] [place] [id number] [address] [place] [address] Dec, Low back pain M54.5 and Recu rrent urinary tract infection N39.0 [place] [address] [place] [id number] [address] [place] [address] Nov, Bipolar 1 disorder, mixed F3 1.60 [place] [address] [place] [address] Nov, Bipolar 1 disorder, mixed F3 1.60 [facility] [address] [place] [id number] [place] [address] Nov, Bipolar 1 disorder, mixed F3 1.60 [facility] [address] [place] [id number] [address] [place] [address] Nov, Bipolar 1 disorder, mixed F3 1.60 [facility] [address] [place] [id number] [place] [address] Nov, [facility] [address] [place] [id number] [place] [id number] Nov, Anesthesia of skin R20.0 ; F requent UTI N39.0 ; Tobacco abuse Z72.0 and Colon cancer screening Z12.11 [place] [address] [address] Nov, Bipolar 1 disorder, mixed F3 1.60 [facility] [address] [address] October, Bipolar 1 disorder, mixed F3 1.60 [place] [address] [address] October, Bipolar 1 disorder, mixed F3 1.60 [facility] [address] [address] October, Bipolar 1 disorder, mixed F3 1.60 [facility] [address] [place] [id number] [address] [place] [address] October, Bipolar 1 disorder, mixed F3 1.60 [facility] [address] [address] October, Bipolar 1 disorder, mixed F3 1.60 [facility] [address] [place] [id number] [address] [place] [address] October, Cervicalgia M54.2 and Bipola r 1 disorder, mixed F31.60 [place] [address] [address] October, Hypertension I10 ; Hyperlipi demia, unspecified hyperlipidemia type E78.5 and Family history of thyroid disease Z83.49 [place] [address] [address] October, [place] [address] [place] [address] October, Hypertension I10 ; Hyperlipi demia, unspecified hyperlipidemia type E78.5 and Family history of thyroid problem Z83.49 [place] [address] [address] October, Bipolar 1 disorder, mixed F3 1.60 [place] [address] [address] Sep, Bipolar 1 disorder, mixed F3 1.60 [place] [address] [address] Sep, Bipolar 1 disorder, mixed F3 1.60 [place] [address] [address] Sep, Bipolar 1 disorder, mixed F3 1.60 [place] [address] [address] Sep, History of colon polyps Z86. 010 and Hematochezia K92.1 [place] [address] [address] Sep, Major depressive disorder, r ecurrent episode, moderate F33.1 [place] [address] [address] Sep, Bipolar 1 disorder, mixed F3 1.60 [place] [address] [address] Aug, Hot flashes due to menopause N95.1 [place] [address] [address] Aug, Bipolar 1 disorder, mixed F3 1.60 [place] [address] [address] Aug, [place] [address] [address] Aug, Bipolar 1 disorder, mixed F3 1.60 [place] [address] [address] Aug, Bipolar 1 disorder, mixed F3 1.60 [place] [address] [place] [address] Aug, Hot flashes due to menopause N95.1 ; Cervicalgia M54.2 and Ataxia R27.0 [place] [address] [address] Jul, Bipolar 1 disorder, mixed F3 1.60 [place] [address] [address] Jul, Bipolar 1 disorder, mixed F3 1.60 [place] [address] [address] Jul, Bipolar 1 disorder, mixed F3 1.60 [place] [address] [address] Jul, Bipolar 1 disorder, mixed F3 1.60 [place] [address] [address] Jul, Bipolar 1 disorder, mixed F3 1.60 [place] [address] [place] [id number] Jul, Cervicalgia M54.2 ; Tremor R 25.1 ; Hearing abnormally acute, unspecified laterality H93.239 ; Alopecia L65.9 ; Encounter for immunization Z23 and Family history of thyroid disease Z83.49 [place] [address] [place] [id number] [address] [place] [address] Jul, Bipolar 1 disorder, mixed F3 1.60 [facility] [address] [place] [address] Jun, [facility] [address] [place] [id number] [address] [place] [address] Jun, Hearing disorder, unspecifie d laterality H93.299 [facility] [address] [place] [id number] [address] [place] [address] Jun, Bipolar 1 disorder, mixed F3 1.60 [facility] [address] [address] Jun, Bipolar 1 disorder, mixed F3 1.60 [facility] [address] [place] [id number] [address] [place] [address] Jun, Allergic rhinitis J30.9 [facility] [address] [place] [address] Jun, Bipolar 1 disorder, mixed F3 1.60 [facility] [address] [place] [id number] [address] [place] [address] Jun, Bipolar 1 disorder, mixed F3 1.60 [facility] [address] [place] [id number] [address] [place] [address] Jun, Allergic rhinitis J30.9 [facility] [address] [place] [id number] [address] [place] [address] Jun, Allergic rhinitis J30.9 [facility] [address] [place] [id number] [address] [place] [address] Jun, Bipolar 1 disorder, mixed F3 1.60 [facility] [address] [place] [id number] [address] [place] [address] May, Bipolar 1 disorder, mixed F3 1.60 [facility] [address] [place] [id number] [address] [place] [address] May, Bipolar 1 disorder, mixed F3 1.60 [facility] [address] [place] [address] May, [facility] [address] [place] [address] May, Bipolar 1 disorder, mixed F3 1.60 [facility] [address] [address] May, Bipolar 1 disorder, mixed F3 1.60 [facility] [address] [address] May, [facility] [address] [address] May, [facility] [address] [address] May, [facility] [address] [address] May, Abdominal pain, unspecified location R10.9 [facility] [address] [address] May, [facility] [address] [address] Apr, Hematuria R31.9 ; Ataxia R27 .0 and Hearing loss, unspecified laterality H91.90 [facility] [address] [address] Apr, Bipolar 1 disorder, mixed F3 1.60 [facility] [address] [address] Apr, Acute effusion of both middl e ears H65.193 [facility] [address] [address] Apr, Hematuria R31.9 and Pyelonep hritis N12 [facility] [address] [address] Apr, [facility] [address] [facility] [id number] [address] [place] [address] Mar, Bipolar 1 disorder, mixed F3 1.60 [facility] [address] [facility] [id number] [address] [place] [address] Mar, [facility] [address] [place] [id number] [address] [place] [address] Mar, Bipolar 1 disorder, mixed F3 1.60 [facility] [address] [facility] [id number] [address] [place] [address] Mar, Bipolar 1 disorder, mixed F3 1.60 [facility] [address] [place] [id number] [address] [place] [address] Mar, Encounter for immunization Z 23 and Gastritis without bleeding, unspecified chronicity, unspecified gastritis type K29.70 [place] [address] [facility] [id number] [address] [place] [address] Mar, Bipolar 1 disorder, mixed F3 1.60 and Grief F43.20 [place] [address] [place] [id number] [address] [place] [address] Mar, Gastritis without bleeding, unspecified chronicity, unspecified gastritis type K29.70 [place] [address] [place] [id number] [address] [place] [address] Mar, Bipolar 1 disorder, mixed F3 1.60 [facility] [address] [facility] [id number] [address] [place] [address] Mar, Gastritis without bleeding, unspecified chronicity, unspecified gastritis type K29.70 [facility] [address] [facility] [id number] [address] [place] [address] Mar, [facility] [address] [facility] [id number] [address] [place] [address] Feb, Bipolar 1 disorder, mixed F3 1.60 [facility] [address] [facility] [id number] [address] [place] [id number] Feb, Bipolar 1 disorder, mixed F3 1.60 and Grief F43.20 [facility] [address] [place] [id number] [address] [place], [place] [id number] Feb, Gastritis without bleeding, unspecified chronicity, unspecified gastritis type K29.70 [facility] [address] [place] [id number] [address] [place] [address] 14 Feb, 2016 Bipolar 1 disorder, mixed F3 1.60 [facility] [address] [facility] [id number] [address] [place] [id number] 09 Feb, 2016 Gastroesophageal reflux dise ase, esophagitis presence not specified K21.9 [facility] [address] [facility] [id number] [address] [place], [place] [id number] Jan, Bipolar 1 disorder, mixed F3 1.60 [place] [address] [place] [id number] [address] [place] [address] Jan, Bipolar 1 disorder, mixed F3 1.60 and Unsteady gait R26.81 [place] [address] [facility] [id number] [address] [place], [place] [id number] Jan, Bipolar 1 disorder, mixed F3 1.60 [facility] [address] [place] [id number] [address] [place], [place] [address] Jan, Bipolar 1 disorder, mixed F3 1.60 and Other mcc (current) drug therapy Z79.899 [place] [address] [place] [id number] [address] [place], [place] [address] Jan, Bipolar 1 disorder, mixed F3 1.60 [place] [address] [facility] [id number] [address] [place] [address] Jan, Bipolar 1 disorder, mixed F3 1.60 [facility] [address] [facility] [id number] [address] [place], [place] [address] Jan, Bipolar 1 disorder, mixed F3 1.60 ; Grief F43.20 and Other mcc (current) drug therapy Z79.899 [facility] [address] [facility] [id number] [address] [place] [id number] Jan, Bipolar 1 disorder, mixed F3 1.60 [place] [address] [facility] [id number] [address] [place] [address] Dec, [facility] [address] [place] [id number] [address] [place] [id number] Dec, Bipolar 1 disorder, mixed F3 1.60 ; Vitamin D deficiency, unspecified E55.9 ; H/O allergic rhinitis Z87.09 ; Other chronic pain G89.29 and Dorsalgia, unspecified M54.9 [place] [address] [facility] [id number] [address] [place] [address] Dec, [place] [address] [facility] [id number] [address] [place] [address] Dec, Bipolar 1 disorder, mixed F3 1.60 [place] [address] [facility] [id number] [address] [place] [phone] Dec, Major depressive disorder, r ecurrent episode, moderate F33.1 [place] [address] [facility] [id number] [address] [place] [id number] Dec, Major depressive disorder, r ecurrent episode, moderate F33.1 [place] [address] [facility] [id number] [address] [place] [address] Nov, [place] [address] [facility] [id number] [address] [place] [id number] Nov, Bipolar 1 disorder, mixed F3 1.60 [place] [id number] [facility] [id number] [address] [place] [phone] Nov, Major depressive disorder, r ecurrent episode, moderate F33.1 [place] [address] [facility] [id number] [address] [place] [address] Nov, Cervicalgia M54.2 ; Arthralg ia of hip, unspecified laterality M25.559 ; Allergic rhinitis J30.9 and Hormone replacement therapy Z79.890 [facility] WALK IN [facility] [address] [facility] [id number] [address] [place] [phone] Nov, Other seasonal allergic rhin itis J30.2 [facility] [address] [facility] [id number] [address] [place] [id number] October, Major depressive disorder, r ecurrent episode, moderate F33.1 [facility] [address] [facility] [id number] [address] [place] [id number] October, Major depressive disorder, r ecurrent episode, moderate F33.1 and Arthralgia of hip, unspecified laterality M25.559 [place] [address] [address] [facility] [id number] [address] [place] [phone] October, Grief F43.20 ; Hypertension I10 ; Hyperlipidemia, unspecified hyperlipidemia type E78.5 ; Other chronic pain G89.29 and Allergic rhinitis, unspecified allergic rhinitis type J30.9 [facility] [address] [facility] [id number] [address] [place] [id number] October, Major depressive disorder, r ecurrent episode, moderate F33.1 [place] [address] [address] [facility] [id number] [address] [place] [phone] Sep, Major depressive disorder, r ecurrent episode, moderate F33.1 [facility] [address] [place] [id number] [address] [place] [phone] Sep, [facility] [address] [facility] [id number] [address] [place] [phone] Sep, Major depressive disorder, r ecurrent episode, moderate F33.1 [place] [address] [address] [facility] [id number] [address] [place] [phone] Sep, Grief F43.20 [place] [address] [address] [facility] [id number] [address] [place] [id number] Aug, Major depressive disorder, r ecurrent episode, moderate F33.1 [place] [address] [id number] [address] [place] [phone] Aug, Bipolar 1 disorder, mixed F3 1.60 [facility] [address] [facility] [id number] [address] [place] [phone] Aug, Allergic rhinitis J30.9 ; Ce rvicalgia M54.2 and Low back pain M54.5 [facility] [address] [place] [id number] [address] [place] [phone] Aug, Major depressive disorder, r ecurrent episode, moderate F33.1 [facility] [address] [facility] [facility] [id number] [address] [place] [id number] Aug, Sinusitis J32.9 and Tobacco 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 [facility] [address] [facility] [id number] [address] [place] [id number] Aug, [facility] [address] [address] Aug, Depressive disorder, not els ewhere classified F32.9 ; Hormone replacement therapy Z79.[address] scan, head R93.0 [place] [id number] [place] [address] Aug, Major depressive disorder, r ecurrent episode, moderate F33.1 [facility] [address] [address] Jul, Major depressive disorder, r ecurrent episode, moderate F33.1 [facility] [address] [place] [id number] [address] [place] [id number] Jul, Abdominal pain R10.9 and Hyp ertension I10 [facility] [address] [place] [id number] [address] [place] [id number] Jul, [facility] [address] [facility] [id number] [address] [place] [id number] Jul, Major depressive disorder, r ecurrent episode, moderate F33.1 [place] [address] [place] [id number] [place] [address], [place] [address] Jul, [facility] [address] [id number] [address] [place] [phone] Jul, [facility] [address] [id number] [address] [place] [id number] Jun, [facility] [address] [id number] [address] [place] [id number] Jun, Depressive disorder, not els ewhere classified F32.9 [facility] [address] [id number] [address] [place] [id number] Jun, [facility] [address] [id number] [address] [place] [id number] Jun, [facility] [address] [facility] [id number] [address] [place] [id number] Jun, Arthralgia of hip, unspecifi ed laterality M25.559 ; Bruising, spontaneous R23.3 and Night sweats R61 [facility] [address] [facility] [id number] [address] [place] [phone] Jun, [facility] [address] [facility] [id number] [address] [place] [phone] Jun, [facility] [address] [facility] [id number] [address] [place] [id number] May, [facility] [address] [facility] [id number] [address] [place] [id number] May, Myalgia M79.1 and Screening, lipid Z13.220 [facility] [address] [facility] [id number] [address] [place] [id number] 10 Apr, 2015 Status post cervical spinal fusion Z98.1 ; Fibromyalgia M79.7 and Unsteady gait R26.81 [facility] [address] [facility] [id number] [address] [place] [id number] Nov, [facility] [address] [place] [id number] [address] [place] [id number] Nov, [facility] [address] [id number] [address] [place] [phone] October, [facility] [address] [id number] [address] [place] [id number] October, [facility] [address] [id number] [address] [place] [id number] October, [facility] [address] [id number] [address] [place] [id number] October, [facility] [address] [id number] [address] [place] [id number] October, [facility] [address] [id number] [address] [place] [phone] October, Dysuria 788.1 ; Nausea 787.0 2 and Urinary tract infection 599.0 [facility] [address] [id number] [address] [place] [id number] Sep, [facility] [address] [id number] [address] [place] [id number] Sep, [facility] [address] [id number] [address] [place] [id number] Aug, [facility] [address] [id number] [address] [place] [phone] Aug, [facility] [address] [id number] [address] [place] [id number] Aug, [facility] [address] [id number] [address] [place] [phone] Aug, [facility] [address] [id number] [address] [place] [id number] Aug, [facility] [address] [id number] [address] [place] [phone] Aug, [facility] [address] [id number] [facility] [place] [address] 19 Aug, 2014 [facility] [address] [id number] [address] [place] [address], [place] [address] 19 Aug, 2014 [facility] [address] [id number] [address] [place] [address], [place] [address] 19 Aug, 2014 [facility] [address] [id number] [address] [place] [address], [place] [address] 18 Aug, 2014 [facility] [address] [id number] [address] [place] [address], [place] [address] 18 Aug, 2014 [facility] [address] [id number] [address] [place] [address], [place] [address] 13 Aug, 2014 [facility] [address] [id number] [address] [place] [address], [place] [address] 13 Aug, 2014 [facility] [address] [id number] [address] [place] [address], [place] [address] 11 Aug, 2014 [facility] [address] [id number] [address] [place] [address], [place] [address] 11 Aug, 2014 [facility] [address] [id number] [address] [place] [address], [place] [address] 06 Aug, 2014 [facility] [address] [id number] [address] [place] [address], [place] [address] 06 Aug, 2014 [facility] [address] [id number] [address] [place] [address], [place] [address] 05 Aug, 2014 [facility] [address] [id number] [address] [place] [address], [place] [address] 05 Aug, 2014 [facility] [address] [id number] [address] [place] [address], [place] [address] 04 Aug, 2014 [facility] [address] [id number] [address] [place] [address], [place] [address] 03 Aug, 2014 [facility] [address] [id number] [address] [place] [address], [place] [address] 03 Aug, 2014 [facility] [address] [id number] [address] [place] [address], [place] [address] Jul, 2014 [facility] [address] [id number] [address] [place] [address], [place] [address] Jul, 2014 [facility] [address] [id number] [address] [place] [address], [place] [address] Jul, 2014 [facility] [address] [id number] [address] [place] [address], [place] [address] Jul, 2014 [facility] [address] [id number] [address] [place] [address], [place] [address] Jul, [facility] [address] [id number] [address] [place] [address], [place] [address] Jul, 2014 [facility] [address] [id number] [address] [place] [address], [place] [address] Jul, 2014 [facility] [address] [id number] [address] [place] [address], [place] [address] Jul, 2014 [facility] [address] [id number] [address] [place] [address], [place] [address] Jul, [facility] [address] [id number] [address] [place] [address], [place] [address] Jul, [facility] [address] [id number] [address] [place] [address], [place] [address] Jul, 2014 [facility] [address] [id number] [address] [place] [address], [place] [address] Jul, 2014 [facility] [address] [id number] [address] [place] [address], [place] [address] Jul, [facility] [address] [id number] [address] [place] [address], [place] [address] Jul, [facility] [address] [id number] [address] [place] [address], [place] [address] Jun, [facility] [address] [id number] [address] [place] [address], [place] [address] Jun, [facility] [address] [id number] [address] [place] [address], [place] [address] Jun, [facility] [address] [id number] [address] [place] [address], [place] [address] Jun, [facility] [address] [id number] [address] [place] [address], [place] [address] Jun, [facility] [address] [id number] [address] [place] [address], [place] [address] Jun, [facility] [address] [id number] [address] [place] [address], [place] [address] May, [facility] [address] [id number] [address] [place] [address], [place] [address] May, [facility] [address] [id number] [address] [place] [address], [place] [address] May, [facility] [address] [id number] [address] [place] [address], [place] [address] May, [facility] [address] [id number] [address] [place] [address], [place] [address] May, [facility] [address] [id number] [address] [place] [address], [place] [address] May, [facility] [address] [id number] [address] [place] [address], [place] [address] Apr, [facility] [address] [id number] [address] [place] [address], [place] [address] Apr, [facility] [address] [id number] [address] [place] [address], [place] [address] Apr, [facility] [address] [id number] [address] [place] [address], [place] [address] Apr, [facility] [address] [id number] [address] [place] [address], [place] [address] Apr, [facility] [address] [id number] [address] [place] [address], [place] [address] Apr, [facility] [address] [id number] [address] [place] [address], [place] [address] Mar, [facility] [address] [id number] [address] [place] [address], [place] [address] Mar, [facility] [address] [id number] [address] [place] [address], [place] [address] Mar, [facility] [address] [id number] [address] [place] [address], [place] [address] Mar, [facility] [address] [id number] [address] [place] [address], [place] [address] Mar, [facility] [address] [id number] [address] [place] [address], [place] [address] Mar, [facility] [address] [id number] [address] [place] [address], [place] [address] Mar, [facility] [address] [id number] [address] [place] [address], [place] [address] Mar, [facility] [address] [id number] [address] [place] [id number] Mar, [facility] [address] [id number] [address] [place] [address], [place] [address] Mar, [facility] [address] [id number] [address] [place] [id number] Mar, [facility] [address] [id number] [address] [place] [address], [place] [address] Mar, [facility] [address] [id number] [address] [place] [address], [place] [address] Feb, [facility] [address] [id number] [address] [place] [address], [place] [address] Feb, [facility] [address] [id number] [address] [place] [address] [place] [address] Feb, [facility] [address] [id number] [facility] [place] [address] Feb, [facility] [address] [id number] [address] [place] [address], [place] [address] Feb, [facility] [address] [id number] [address] [place] [address], [place] [address] Feb, [facility] [address] [id number] [address] [place] [address], [place] [address] Feb, [facility] [address] [id number] [address] [place] [address], [place] [address] Jan, [facility] [address] [id number] [address] [place] [address], [place] [address] Jan, [facility] [address] [id number] [address] [place] [address], [place] [address] Jan, [facility] [address] [id number] [address] [place] [address], [place] [address] Dec, [facility] [address] [id number] [address] [place] [address], [place] [address] Dec, [facility] [address] [id number] [address] [place] [address], [place] [address] Dec, [facility] [address] [id number] [address] [place] [address], [place] [address] Dec, [facility] [address] [id number] [address] [place] [address], [place] [address] Sep, [facility] [address] [id number] [address] [place] [address], [place] [address] Sep, [facility] [address] [id number] [address] [place] [address], [place] [address] Sep, [facility] [address] [id number] [address] [place] [address], [place] [address] Sep, [facility] [address] [id number] [address] [place] [address], [place] [address] Sep, [facility] [address] [id number] [address] [place] [address], [place] [address] Sep, [facility] [address] [id number] [address] [place] [address], [place] [address] Sep, [facility] [address] [id number] [address] [place] [address], [place] [address] Sep, [facility] [address] [id number] [address] [place] [address], [place] [address] Aug, [facility] [address] [id number] [address] [place] [address], [place] [address] Aug, [facility] [address] [id number] [address] [place] [address], [place] [address] May, [facility] [address] [id number] [address] [place] [address], [place] [address] May, [facility] [address] [id number] [address] [place] [address], [place] [address] Apr, [facility] [address] [id number] [address] [place] [address], [place] [address] Apr, [facility] [address] [id number] [address] [place] [address], [place] [address] Apr, [facility] [address] [id number] [address] [place] [address], [place] [address] Apr, [facility] [address] [id number] [address] [place] [address], [place] [address] Apr, [facility] [address] [id number] [address] [place] [address], [place] [address] Apr, [facility] [address] [id number] [address] [place] [address], [place] [address] May, [facility] [address] [id number] [address] [place] [address], [place] [address] 18 May, 2012 [facility] [address] [id number] [address] [place] [address], [place] [address] 15 May, 2012 [facility] [address] [id number] [address] [place] [address], [place] [address] 15 May, 2012 [facility] [address] [id number] [address] [place] [address], [place] [address] 13 May, 2012 [facility] [address] [id number] [address] [place] [address], [place] [address] 13 May, 2012 [facility] [address] [id number] [address] [place] [address], [place] [address] 13 Apr, 2012 [facility] [address] [id number] [address] [place] [address], [place] [address] 13 Apr, 2012 [facility] [address] [id number] [address] [place] [address], [place] [address] 08 Apr, 2012 [facility] [address] [id number] [address] [place] [address] 08 Apr, 2012 [facility] [address] [id number] [address] [place] [address], [place] [address] Apr, [facility] [address] [id number] [address] [place] [address], [place] [address] 08 Apr, 2012 [facility] [address] [id number] [address] [place] [id number] Apr, [facility] [address] [id number] [address] [place] [address] Apr, [facility] [address] [id number] [address] [place] [address], [place] [address] Apr, [facility] [address] [id number] [address] [place] [address] Apr, [facility] [address] [id number] [address] [place] [address], [place] [address] 30 Mar, 2012 [facility] [address] [id number] [address] [place] [address], [place] [address] Mar, [facility] [address] [id number] [address] [place] [address], [place] [address] Mar, [facility] [address] [id number] [address] [place] [address], [place] [address] Mar, [facility] [address] [id number] [address] [place] [address], [place] [address] Mar, [facility] [address] [id number] [address] [place] [address], [place] [address] Mar, [facility] [address] [id number] [address] [place] [address], [place] [address] Mar, [facility] [address] [id number] [address] [place] [address], [place] [address] Mar, [facility] [address] [id number] [address] [place] [address], [place] [address] Mar, [facility] [address] [id number] [address] [place] [address], [place] [address] 25 Feb, 2012 [facility] [address] [id number] [address] [place] [address], [place] [address] 16 Feb, 2012 [facility] [address] [id number] [address] [place] [address], [place] [address] 11 Feb, 2012 [facility] [address] [id number] [address] [place] [address], [place] [address] Jan, [facility] [address] [id number] [address] [place] [address], [place] [address] Jan, [facility] [address] [id number] [address] [place] [address], [place] [address] Jan, [facility] [address] [id number] [address] [place] [address], [place] [address] Jan, [facility] [address] [id number] [address] [place] [address], [place] [address] Jan, [facility] [address] [id number] [address] [place] [address], [place] [address] Jan, [facility] [address] [id number] [address] [place] [address], [place] [address] Jan, [facility] [address] [id number] [address] [place] [address], [place] [address] Jan, [facility] [address] [id number] [address] [place] [address], [place] [address] Jan, [facility] [address] [id number] [address] [place] [address], [place] [address] Jan, [facility] [address] [id number] [address] [place] [address], [place] [address] Dec, [facility] [address] [id number] [address] [place] [address], [place] [address] Dec, [facility] [address] [id number] [address] [place] [address], [place] [address] Dec, [facility] [address] [id number] [address] [place] [address], [place] [address] Dec, [facility] [address] [id number] [address] [place] [address], [place] [address] Nov, [facility] [address] [id number] [address] [place] [address], [place] [address] Nov, [facility] [address] [id number] [address] [place] [address], [place] [address] Nov, [facility] [address] [id number] [address] [place] [address], [place] [address] October, [facility] [address] [id number] [address] [place] [address], [place] [address] October, [facility] [address] [id number] [address] [place] [address], [place] [address] October, [facility] [address] [id number] [address] [place] [id number] October, [facility] [address] [id number] [address] [place] [address] October, [facility] [address] [id number] [address] [place] [id number] October, [facility] [address] [id number] [address] [place] [phone] Aug, [facility] [address] [id number] [address] [place] [id number] Mar, [facility] [address] [id number] [address] [place] [phone] Nov, [facility] [address] [id number] [address] [place] [phone] May, [facility] [address] [id number] [address] [place] [phone] May, [facility] [address] [id number] [address] [place] [phone] Apr, [facility] [address] [id number] [address] [place] [phone] Mar, [facility] [address] [id number] [address] [place] [phone] Mar, IMMUNIZATIONS No Known Immunizations SOCIAL HISTORY Never Assessed REASON FOR VISIT PLAN OF CARE VITAL SIGNS Height 64 in 2013-05-20 Weight 140.6 lbs 2013-05-20 Temperature 98.2 degrees Fahrenheit 2013-05-20 Heart Rate 96 bpm 2013-05-20 Respiratory Rate 20 2013-05-20 Blood pressure systolic 142 mmHg 2013-05-20 Blood pressure diastolic 80 mmHg 2013-05-20 MEDICATIONS Unknown Medications RESULTS No Results PROCEDURES No Known procedures INSTRUCTIONS MEDICATIONS ADMINISTERED No Known Medications MEDICAL (GENERAL) HISTORY Type Description Date Medical History Severe spinal stenosis amyu keesha cervical spine CT and MRI done [...]
--- OUTSIDE RECORDS SUMMARY | 2020-02-02 19:38 | XMS REPORT ---
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 Name Role Phone DAVEY STEPHENSON Unavailable PROBLEMS Type Condition ICD9-CM Code JEU01-EZ Code Onset Dates Condition S tatus SNOMED Code Problem Night sweats R61 Active 0643238 0 Problem Hypertension I10 Active 4766319 3 Problem Arthralgia of hip, unspecified laterality M25.559 Active 92982901 Problem Other chronic pain G89.29 Active 8 7124858 Problem Grief F43.20 Active 06083181 Problem Gastritis without bleeding, unspecified chronicity, unspecified gastritis type K29.70 Active 883043180 Problem Hyperlipidemia, unspecified hyperlipidemia type E7 8.5 Active 54901430 Problem Acute left-sided low back pain with left-sided sciatica M54.42 Active 725238467 Problem Abnormal CT scan, head R93.0 Active 184336756 Problem Bladder spasm N32.89 Active 253429 006 Problem Age-related osteoporosis without current pathological fracture M81.0 Active 55711937 Problem Bruising, spontaneous R23.3 Active 525913711 Problem Sensorineural hearing loss (SNHL) of both ears H90 .3 Active 353141902 Problem History of colon polyps Z86.010 Active 541209842 Problem Allergic rhinitis J30.9 Active 61 127123 Problem Hematuria, unspecified type R31.9 Ac tive 36628434 Problem Generalized anxiety disorder F41.1 A ctive 73119373 Problem Imbalance R26.89 Active 981091088 Problem Hammer toe of right foot M20.41 Activ e 658532915 Problem Fibromyalgia M79.7 Active 1230948 7 Problem Hormone replacement therapy Z79.890 Ac tive 250535984 Problem Major depressive disorder, recurrent episode, moderate F33.1 Active 365163392 Problem Sciatica of left side M54.32 Active 97217039 Problem Plantar wart of right foot B07.0 Act mitchell [id number] Problem Slow transit constipation K59.01 Acti ve 40460399 Problem Osteoporotic compression fracture of spine with delayed healing M80.88XG Active 06209572 Problem Ataxia R27.0 Active 02525482 Problem Age-related osteoporosis wit h current pathological fracture with delayed healing, subsequent encounter M80.00XG Active 297854348 Problem Bipolar 1 disorder, mixed F31.60 Acti ve 37903341 Problem Hearing loss, unspecified laterality H91.90 Active 71007915 Problem Tobacco use disorder F17.200 Active 490727911 Problem Post menopausal syndrome N95.1 Activ e 078072125 Problem Sciatica of right side M54.31 Active 41945839 Problem Hearing loss, unspecified hearing loss type, uns pecified laterality H91.90 Active 79489821 ALLERGIES No Information ENCOUNTERS Encounter Location Date Diagnosis [facility] [address] [facility] [id number] [address] [place] [phone] 07 Dec, 2019 [facility] [address] [facility] [id number] [place] [phone] Nov, [facility] [address] [facility] [id number] [address] [place] [address] 20 Oct, 2019 Bipolar 1 disorder, mixed F3 1.60 [facility] [address] [facility] [id number] [address] [place] [address] 15 Oct, 2019 [facility] [address] [facility] [id number] [address] [place] [phone] 15 Oct, 2019 [facility] [address] [facility] [id number] [address] [place] [phone] October, [facility] [address] [facility] [id number] [address] [place] [phone] October, [facility] [address] [facility] [id number] [address] [place] [address] 09 Oct, 2019 Acute non-recurrent frontal sinusitis J01.10 [facility] [address] [facility] [id number] [address] [place] [address] 07 Oct, 2019 Compression fracture of L1 v ertebra, sequela S32.010S [facility] [address] [facility] [id number] [address] [place] [address] October, Bipolar 1 disorder, mixed F3 1.60 [facility] [address] [id number] [address] [place] [address] October, Mouth pain K13.79 [facility] [address] [facility] [id number] [address] [place] [phone] 28 Sep, 2019 [facility] [address] [id number] [address] [place] [address] Sep, Age-related osteoporosis wit h current pathological fracture with delayed healing, subsequent encounter M80.00XG and Sore in mouth K13.79 [facility] [address] [facility] [id number] [address] [place] [address] Sep, [facility] [address] [facility] [id number] [address] [place] [address] Sep, Bipolar 1 disorder, mixed F3 1.60 [facility] [address] [facility] [id number] [address] [place] [address] 15 Sep, 2019 Compression fracture of L1 v ertebra, sequela S32.010S ; Tobacco use disorder F17.200 ; Age-related osteoporosis with current pathological fracture with routine healing, subsequent encounter M80.00XD ; Allergic rhinitis J30.9 ; Generalized anxiety disorder F41.1 and Recurrent UTI N39.0 [facility] [address] [id number] [address] [place] [phone] 14 Sep, 2019 Bipolar 1 disorder, mixed F3 1.60 ; Generalized anxiety disorder F41.1 and Tobacco use disorder F17.200 [facility] [address] [facility] [id number] [address] [place] [phone] 13 Sep, 2019 [facility] [address] [facility] [id number] [address] [place] [phone] 08 Sep, 2019 Bipolar 1 disorder, mixed F3 1.60 [facility] [address] [facility] [id number] [address] [place] [phone] 23 Aug, 2019 [facility] [address] [facility] [id number] [address] [place] [phone] 23 Aug, 2019 Yeast vaginitis B37.3 [facility] [address] [facility] [id number] [address] [place] [phone] 14 Aug, 2019 Vaginal discharge N89.8 [facility] [address] [place] [id number] [address] [place] [phone] 10 Aug, 2019 Bipolar 1 disorder, mixed F3 1.60 [facility] [address] [facility] [id number] [address] [place] [phone] 04 Aug, 2019 Age-related osteoporosis wit h current pathological fracture with routine healing, subsequent encounter M80.00XD [place] [address] [place] [id number] [address] [place] [address] 24 Jul, 2019 Age-related osteoporosis wit h current pathological fracture with routine healing, subsequent encounter M80.00XD [facility] [address] [place] [id number] [address] [place] [address] 24 Jul, 2019 Osteoporotic compression fra cture of spine with delayed healing M80.88XG and Tobacco use disorder F17.200 [place] [address] [place] [id number] [address] [place] [phone] 11 Jul, 2019 Bipolar 1 disorder, mixed F3 1.60 [facility] [address] [place] [id number] [address] [place] [phone] 07 Jul, 2019 [facility] [address] [facility] [id number] [address] [place] [address] 03 Jul, 2019 Tobacco use disorder F17.200 [place] [address] [place] [id number] [address] [place] [phone] 15 Jun, 2019 Bipolar 1 disorder, mixed F3 1.60 [facility] [address] [place] [id number] [address] [place] [phone] 07 Jun, 2019 Bipolar 1 disorder, mixed F3 1.60 ; Generalized anxiety disorder F41.1 and Tobacco use disorder F17.200 [facility] [address] [id number] [address] [place] [address] Jun, Tobacco use disorder F17.200 [facility] [address] [id number] [address] [place] [phone] May, [facility] [address] [id number] [address] [place] [phone] May, Compression fracture of L1 v ertebra with routine healing, subsequent encounter S32.010D [facility] [address] [id number] [address] [place] [phone] May, [facility] [address] [id number] [address] [place] [phone] May, [facility] [address] [id number] [address] [place] [phone] May, [facility] [address] [id number] [address] [place] [phone] May, [facility] [address] [id number] [address] [place] [phone] May, [facility] [address] [facility] [id number] [address] [place] [address] May, [facility] [address] [id number] [address] [place] [address] May, [facility] [address] [facility] [id number] [address] [place] [address] May, Bipolar 1 disorder, mixed F3 1.60 [facility] [address] [id number] [address] [place] [address] May, Closed fracture of right upp er extremity with routine healing, subsequent encounter S42.301D and Hearing loss, unspecified hearing loss type, unspecified laterality H91.90 [facility] [address] [facility] [id number] [address] [place] [address] May, [place] [address] [address] Apr, Allergic rhinitis J30.9 ; Ab dominal pain, unspecified location R10.9 and Seborrheic keratosis L82.1 [place] [address] [address] Mar, Bipolar 1 disorder, mixed F3 1.60 [place] [address] [address] Mar, Bipolar 1 disorder, mixed F3 1.60 ; Generalized anxiety disorder F41.1 and Tobacco use disorder F17.[address] [address] Feb, Excessive gas R14.3 ; Other chronic pain G89.29 ; Encounter for immunization Z23 ; Hyperlipidemia, unspecified hyperlipidemia type E78.5 ; Bipolar 1 disorder, mixed F31.60 and 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 [place] [address] [address] Feb, Bipolar 1 disorder, mixed F3 1.60 [place] [address] [address] Jan, Sciatica of right side M54.3 1 ; Low back pain M54.5 and Major depressive disorder, recurrent episode, moderate F33.1 [place] [address] [address] Jan, Bipolar 1 disorder, mixed F3 1.60 [place] [address] [address] Dec, Normal pelvic exam Z01.419 [place] [address] [address] Dec, Bipolar 1 disorder, mixed F3 1.60 [place] [address] [address] Nov, Bipolar 1 disorder, mixed F3 1.60 [facility] [address] [facility] [id number] [address] [place] [address] Nov, Bipolar 1 disorder, mixed F3 1.60 ; Generalized anxiety disorder F41.1 ; Tobacco use disorder F17.200 and 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 [facility] [address] [facility] [id number] [address] [place] [address] Nov, [facility] [address] [facility] [id number] [address] [place] [address] Nov, Bipolar 1 disorder, mixed F3 1.60 [place] [address] [facility] [id number] [address] [place] [address] October, Bipolar 1 disorder, mixed F3 1.60 [place] [address] [facility] [id number] [address] [place] [address] October, Bipolar 1 disorder, mixed F3 1.60 [place] [address] [facility] [id number] [address] [place] [address] October, [facility] [address] [facility] [id number] [address] [place] [address] October, Bipolar 1 disorder, mixed F3 1.60 ; Generalized anxiety disorder F41.1 and Tobacco use disorder F17.200 [place] [address] [facility] [id number] [address] [place] [address] Sep, [facility] [address] [facility] [id number] [address] [place] [address] Sep, Encounter for Medicare annua wellness exam Z00.00 ; Major depressive disorder, recurrent episode, moderate F33.1 ; Allergic rhinitis J30.9 ; Bipolar 1 disorder, mixed F31.60 ; Fibromyalgia M79.7 ; Hyperlipidemia, unspecified hyperlipidemia type E78.5 ; Hormone replacement therapy Z79.890 ; Encounter for screening for lung cancer Z12.2 and Tobacco use disorder F17.200 [facility] [address] [facility] [id number] [address] [place] [address] Sep, Bipolar 1 disorder, mixed F3 1.60 [place] [address] [address] Sep, Other chronic pain G89.29 ; Hyperlipidemia, unspecified hyperlipidemia type E78.5 ; Breast cancer screening Z12.31 and Post menopausal syndrome N95.1 [place] [address] [address] Sep, Bipolar 1 disorder, mixed F3 1.60 [place] [address] [address] Sep, Bipolar 1 disorder, mixed F3 1.60 ; Generalized anxiety disorder F41.1 and Tobacco use disorder F17.200 [place] [address] [address] Sep, Gastritis without bleeding, unspecified chronicity, unspecified gastritis type K29.70 [place] [address] [place] [id number] [address] [place] [address] Sep, Exercise counseling Z71.82 [place] [address] [address] Aug, Exercise counseling Z71.82 [place] [address] [address] Aug, Bipolar 1 disorder, mixed F3 1.60 [place] [address] [place] [id number] [address] [place] [address] Aug, Exercise counseling Z71.82 [place] [address] [place] [id number] [address] [place] [address] Aug, Bipolar 1 disorder, mixed F3 1.60 [place] [address] [place] [id number] [address] [place] [address] Aug, Gastritis without bleeding, unspecified chronicity, unspecified gastritis type K29.70 ; Tobacco abuse Z72.0 ; Generalized anxiety disorder F41.1 and Weight gain R63.5 [facility] [address] [id number] [address] [place] [address] 14 Aug, 2018 Bipolar 1 disorder, mixed F3 1.60 ; Generalized anxiety disorder F41.1 and Tobacco use disorder F17.200 [facility] [address] [facility] [id number] [address] [place] [address] Jul, Bipolar 1 disorder, mixed F3 1.60 [facility] [address] [facility] [id number] [address] [place] [address] Jul, [facility] [address] [facility] [id number] [address] [place] [address] Jul, Bipolar 1 disorder, mixed F3 1.60 [facility] [address] [facility] [id number] [address] [place] [address] Jul, Allergic rhinitis J30.9 ; Ma darion depressive disorder, recurrent episode, moderate F33.1 and Tobacco 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 [facility] [address] [facility] [id number] [address] [place] [address] Jun, [facility] [address] [facility] [id number] [address] [place] [address] Jun, [facility] [address] [facility] [id number] [address] [place] [address] Jun, Bipolar 1 disorder, mixed F3 1.60 [facility] [address] [facility] [id number] [address] [place] [address] Jun, Bipolar 1 disorder, mixed F3 1.60 [facility] [address] [facility] [id number] [address] [place] [address] Jun, Bipolar 1 disorder, mixed F3 1.60 [facility] [address] [facility] [id number] [address] [place] [address] Jun, Generalized anxiety disorder F41.1 ; Tobacco abuse Z72.0 and Major depressive disorder, recurrent episode, moderate F33.1 [facility] [address] [facility] [id number] [address] [place] [address] May, Bipolar 1 disorder, mixed F3 1.60 [facility] [address] [address] May, Bipolar 1 disorder, mixed F3 1.60 and Generalized anxiety disorder F41.1 [facility] [address] [place] [id number] [place] [address] May, Bipolar 1 disorder, mixed F3 1.60 [place] [address] [address] May, Allergic rhinitis J30.9 [place] [address] [address] May, Bipolar 1 disorder, mixed F3 1.60 [place] [address] [address] May, [place] [address] [address] Apr, Allergic rhinitis J30.9 ; Dy sfunction of both eustachian tubes H69.83 ; History of bladder surgery Z98.890 and Cervicalgia M54.2 [place] [address] [address] Mar, Bipolar 1 disorder, mixed F3 1.60 [place] [address] [address] Mar, [place] [address] [address] Mar, Slow transit constipation K5 9.01 ; Encounter for immunization Z23 and Generalized anxiety disorder F41.1 [place] [address] [place] [id number] [address] [place] [address] Feb, Bipolar 1 disorder, mixed F3 1.60 [place] [address] [place] [id number] [address] [place] [address] Feb, Allergic rhinitis J30.9 [facility] [address] [id number] [address] [place] [phone] 24 Feb, 2018 Bipolar 1 disorder, mixed F3 1.60 [facility] [address] [id number] [address] [place] [address] 20 Feb, 2018 Bipolar 1 disorder, mixed F3 1.60 and Generalized anxiety disorder F41.1 [facility] [address] [facility] [id number] [address] [place] [address] 13 Feb, 2018 Bipolar 1 disorder, mixed F3 1.60 [facility] [address] [facility] [id number] [address] [place] [address] 11 Feb, 2018 Allergic rhinitis J30.9 [facility] [address] [facility] [id number] [address] [place] [phone] 05 Feb, 2018 [facility] [address] [facility] [id number] [address] [place] [address] Jan, Bipolar 1 disorder, mixed F3 1.60 [facility] [address] [facility] [id number] [address] [place] [address] Jan, Low back pain M54.5 ; Hyperl ipidemia, unspecified hyperlipidemia type E78.5 and Bipolar 1 disorder, mixed F31.60 [facility] [address] [facility] [id number] [address] [place] [address] Jan, Bipolar 1 disorder, mixed F3 1.60 [facility] [address] [facility] [id number] [address] [place] [address] Jan, Bipolar 1 disorder, mixed F3 1.60 [facility] [address] [facility] [id number] [address] [place] [address] Jan, Bipolar 1 disorder, mixed F3 1.60 [facility] [address] [facility] [id number] [address] [place] [address] Jan, Bipolar 1 disorder, mixed F3 1.60 [facility] [address] [facility] [id number] [address] [place] [address] Dec, Bipolar 1 disorder, mixed F3 1.60 ; Generalized anxiety disorder F41.1 and 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 (current) drug therapy Z79.899 [place] [address] [facility] [id number] [address] [place], [place] [address] Dec, 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 (current) dr bin therapy Z79.899 [facility] [address] [facility] [id number] [address] [place] [address] Dec, Bipolar 1 disorder, mixed F3 1.60 [facility] [address] [facility] [id number] [address] [place] [address] Dec, Bipolar 1 disorder, mixed F3 1.60 [place] [address] [facility] [id number] [address] [place] [address] Nov, Bipolar 1 disorder, mixed F3 1.60 [place] [address] [facility] [id number] [address] [place] [address] Nov, Bipolar 1 disorder, mixed F3 1.60 [place] [address] [facility] [id number] [address] [place] [address] Nov, Bipolar 1 disorder, mixed F3 1.60 [place] [address] [facility] [id number] [address] [place] [address] Nov, Allergic rhinitis J30.9 [facility] [address] [facility] [id number] [address] [place] [address] Nov, Allergic rhinitis J30.9 [facility] [address] [facility] [id number] [address] [place] [address] Nov, [place] [address] [facility] [id number] [address] [place] [address] Nov, Bipolar 1 disorder, mixed F3 1.60 [place] [address] [facility] [id number] [address] [place] [address] Nov, Fibromyalgia M79.7 and Aller gic rhinitis J30.9 [facility] [address] [facility] [id number] [address] [place] [address] October, Bipolar 1 disorder, mixed F3 1.60 [facility] [address] [id number] [address] [place] [address] October, Acute nasopharyngitis J00 [facility] [address] [facility] [id number] [address] [place] [phone] October, Bitten or stung by nonvenomo us insect and other nonvenomous arthropods, initial encounter W57.XXXA and Insect bite (nonvenomous) of abdominal wall, initial encounter S30.861A [facility] [address] [facility] [id number] [address] [place] [id number] October, Insect bite (nonvenomous) of abdominal wall, initial encounter S30.861A ; Bitten or stung by nonvenomous insect and other nonvenomous arthropods, initial encounter W57.XXXA ; Allergic rhinitis J30.9 and Low back pain M54.5 [facility] [address] [facility] [id number] [address] [place] [id number] October, Bipolar 1 disorder, mixed F3 1.60 [facility] [address] [facility] [id number] [address] [place] [phone] October, [facility] [address] [facility] [id number] [address] [place] [phone] October, [facility] [address] [facility] [id number] [address] [place] [id number] October, Bipolar 1 disorder, mixed F3 1.60 [facility] [address] [id number] [address] [place] [phone] Sep, Bipolar 1 disorder, mixed F3 1.60 [facility] [address] [facility] [id number] [address] [place] [phone] Sep, Other chronic pain G89.29 [facility] [address] [facility] [id number] [address] [place] [phone] Sep, [facility] [address] [facility] [id number] [address] [place] [address] Sep, Bipolar 1 disorder, mixed F3 1.60 [facility] [address] [facility] [id number] [address] [place] [address] Sep, Allergic rhinitis J30.9 and Sciatica of left side M54.32 [facility] [address] [facility] [id number] [address] [place] [address] Sep, Bipolar 1 disorder, mixed F3 1.60 [facility] [address] [facility] [id number] [address] [place] [address] Sep, Bipolar 1 disorder, mixed F3 1.60 and Generalized anxiety disorder F41.1 [place] [address] [address] [facility] [id number] [address] [place] [address] Aug, [place] [address] [address] [place] [id number] [address] [place] [address] Aug, Bipolar 1 disorder, mixed F3 1.60 [facility] [address] [facility] [id number] [address] [place] [address] Aug, Bipolar 1 disorder, mixed F3 1.60 [facility] [address] [facility] [id number] [address] [place] [address] Aug, [place] [address] [address] [facility] [id number] [address] [place] [address] Aug, Generalized anxiety disorder F41.1 [facility] [address] [facility] [id number] [address] [place] [address] Aug, Bipolar 1 disorder, mixed F3 1.60 [facility] [address] [facility] [id number] [address] [place] [address] Aug, Plantar wart of right foot B 07.0 [facility] [address] [facility] [id number] [address] [place] [address] Aug, Bipolar 1 disorder, mixed F3 1.60 [facility] [address] [place] [id number] [address] [place] [address] Jul, Bipolar 1 disorder, mixed F3 1.60 [facility] [address] [facility] [id number] [address] [place] [address] Jul, [facility] [address] [facility] [id number] [address] [place] [address] 14 Jul, 2017 Bipolar 1 disorder, mixed F3 1.60 [facility] [address] [place] [id number] [address] [place] [address] Jul, Generalized anxiety disorder F41.1 [facility] [address] [facility] [id number] [address] [place] [address] 07 Jul, 2017 Bipolar 1 disorder, mixed F3 1.60 [facility] [address] [place] [id number] [address] [place] [address] 07 Jul, 2017 Acute left-sided low back pa in with left-sided sciatica M54.42 [facility] [address] [place] [id number] [address] [place] [address] 05 Jul, 2017 Coccydynia M53.3 [facility] [address] [facility] [id number] [address] [place] [address] Jun, Bipolar 1 disorder, mixed F3 1.60 [facility] [address] [facility] [id number] [address] [place] [address] Jun, Acute nasopharyngitis J00 [facility] [address] [facility] [id number] [address] [place] [phone] Jun, Bipolar 1 disorder, mixed F3 1.60 [facility] [address] [facility] [id number] [address] [place] [address] Jun, Fibromyalgia M79.7 [facility] [address] [facility] [id number] [address] [place] [address] Jun, Bipolar 1 disorder, mixed F3 1.60 [facility] [address] [place] [id number] [address] [place] [address] Jun, Fibromyalgia M79.7 and Bipol ar 1 disorder, mixed F31.60 [place] [address] [address] May, Bipolar 1 disorder, mixed F3 1.60 ; Generalized anxiety disorder F41.1 and 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 (current) drug therapy Z79.899 [place] [address] [address] May, Bipolar 1 disorder, mixed F3 1.60 [facility] [place] [id number] [address] May, Cough R05 and Body aches R52 [facility] [place] [address] [address] 10 May, 2017 Bladder spasm N32.89 and Acu te cystitis without hematuria N30.00 [place] [address] [address] May, Bipolar 1 disorder, mixed F3 1.60 [place] [address] [address] Apr, [place] [address] [address] Apr, Major depressive disorder, r ecurrent episode, moderate F33.1 and Encounter for immunization Z23 [place] [address] [address] Apr, Bipolar 1 disorder, mixed F3 1.60 [place] [address] [address] Apr, Bipolar 1 disorder, mixed F3 1.60 [place] [address] [address] 16 Apr, 2017 Bipolar 1 disorder, mixed F3 1.60 [place] [address] [address] Apr, Yeast vaginitis B37.3 [facility] [address] [facility] [id number] [address] [place] [address] 09 Apr, 2017 Bipolar 1 disorder, mixed F3 1.60 [facility] [address] [facility] [id number] [address] [place] [address] 07 Apr, [address]03[address] for immunization Z23 [facility] [address] [place] [id number] [address] [place] [address] Apr, Bipolar 1 disorder, mixed F3 1.60 [facility] [address] [place] [id number] [address] [place] [address] Mar, Bipolar 1 disorder, mixed F3 1.60 [place] [address] [address] Mar, Bipolar 1 disorder, mixed F3 1.60 [facility] [address] [address] Mar, Imbalance R26.89 and Encount er for immunization Z23 [facility] [address] [place] [id number] [address] [place] [address] Mar, Generalized anxiety disorder F41.1 [facility] [address] [place] [id number] [address] [place] [address] Mar, Bipolar 1 disorder, mixed F3 1.60 [facility] [address] [place] [id number] [address] [place] [address] Mar, Generalized anxiety disorder F41.1 [facility] [address] [place] [id number] [address] [place] [address] Mar, Bipolar 1 disorder, mixed F3 1.60 [facility] [address] [place] [id number] [address] [place] [address] Mar, Bipolar 1 disorder, mixed F3 1.60 [facility] [address] [place] [id number] [address] [place] [address] Feb, Bipolar 1 disorder, mixed F3 1.60 [place] [address] [address] [facility] [id number] [address] [place] [address] 25 Feb, 2017 Bipolar 1 disorder, mixed F3 1.60 and Generalized anxiety disorder F41.1 [facility] [address] [facility] [id number] [address] [place] [address] 21 Feb, 2017 Gastritis without bleeding, unspecified chronicity, unspecified gastritis type K29.70 ; Hammer toe of right foot M20.41 and Other viral warts B07.8 [place] [address] [facility] [id number] [address] [place] [address] 20 Feb, 2017 Bipolar 1 disorder, mixed F3 1.60 [place] [address] [address] [facility] [id number] [address] [place] [address] 13 Feb, 2017 Bipolar 1 disorder, mixed F3 1.60 [place] [address] [address] [place] [id number] [address] [place] [address] 05 Feb, 2017 Bipolar 1 disorder, mixed F3 1.60 [place] [address] [address] [place] [id number] [address] [place] [address] Jan, Encounter for screening mamm ogram for breast cancer Z12.31 ; Other viral warts B07.8 and Allergic rhinitis J30.9 [place] [address] [address] [facility] [id number] [address] [place] [address] Jan, Bipolar 1 disorder, mixed F3 1.60 [place] [address] [address] [facility] [id number] [address] [place] [address] Jan, Bipolar 1 disorder, mixed F3 1.60 [place] [address] [facility] [id number] [address] [place] [address] Jan, [place] [address] [address] [place] [id number] [address] [place] [address] Jan, Bipolar 1 disorder, mixed F3 1.60 [place] [address] [address] [place] [id number] [address] [place] [address] Jan, Bipolar 1 disorder, mixed F3 1.60 [place] [address] [facility] [id number] [address] [place] [address] Jan, Allergic rhinitis J30.9 ; He maturia R31.9 and Colon cancer screening Z12.11 [place] [address] [address] [facility] [id number] [address] [place] [address] Dec, Bipolar 1 disorder, mixed F3 1.60 [place] [address] [address] [place] [id number] [address] [place] [address] Dec, Bipolar 1 disorder, mixed F3 1.60 ; Generalized anxiety disorder F41.1 and 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 [place] [address] [address] [place] [id number] [address] [place] [address] Dec, Bipolar 1 disorder, mixed F3 1.60 [place] [address] [address] [place] [id number] [address] [place] [address] Dec, Bipolar 1 disorder, mixed F3 1.60 [place] [address] [place] [id number] [address] [place] [address] Dec, Bipolar 1 disorder, mixed F3 1.60 [place] [address] [place] [id number] [address] [place] [address] Dec, Low back pain M54.5 and Recu rrent urinary tract infection N39.0 [place] [address] [address] [place] [id number] [address] [place] [address] Nov, Bipolar 1 disorder, mixed F3 1.60 [place] [address] [facility] [id number] [address] [place] [address] Nov, Bipolar 1 disorder, mixed F3 1.60 [place] [address] [address] [place] [id number] [address] [place] [address] Nov, Bipolar 1 disorder, mixed F3 1.60 [place] [address] [address] [place] [id number] [address] [place] [address] Nov, Bipolar 1 disorder, mixed F3 1.60 [place] [address] [address] Nov, [place] [address] [address] Nov, Anesthesia of skin R20.0 ; F requent UTI N39.0 ; Tobacco abuse Z72.0 and Colon cancer screening Z12.11 [place] [address] [address] Nov, Bipolar 1 disorder, mixed F3 1.60 [place] [address] [address] October, Bipolar 1 disorder, mixed F3 1.60 [place] [address] [address] October, Bipolar 1 disorder, mixed F3 1.60 [place] [address] [address] October, Bipolar 1 disorder, mixed F3 1.60 [place] [address] [address] October, Bipolar 1 disorder, mixed F3 1.60 [place] [address] [address] October, Bipolar 1 disorder, mixed F3 1.60 [place] [address] [address] October, Cervicalgia M54.2 and Bipola r 1 disorder, mixed F31.60 [place] [address] [address] October, Hypertension I10 ; Hyperlipi demia, unspecified hyperlipidemia type E78.5 and Family history of thyroid disease Z83.49 [place] [address] [address] October, [place] [address] [address] October, Hypertension I10 ; Hyperlipi demia, unspecified hyperlipidemia type E78.5 and Family history of thyroid problem Z83.49 [place] [address] [address] [place] [id number] [address] [place] [address] October, Bipolar 1 disorder, mixed F3 1.60 [place] [address] [address] [place] [id number] [address] [place] [address] Sep, Bipolar 1 disorder, mixed F3 1.60 [place] [id number] [place] [address] Sep, Bipolar 1 disorder, mixed F3 1.60 [place] [address] [address] Sep, Bipolar 1 disorder, mixed F3 1.60 [place] [address] [address] Sep, History of colon polyps Z86. 010 and Hematochezia K92.1 [place] [address] [address] [place] [id number] [address] [place] [address] Sep, Major depressive disorder, r ecurrent episode, moderate F33.1 [place] [address] [place] [id number] [address] [place] [address] Sep, Bipolar 1 disorder, mixed F3 1.60 [place] [address] [address] [place] [id number] [address] [place] [address] Aug, Hot flashes due to menopause N95.1 [place] [address] [place] [id number] [address] [place] [address] Aug, Bipolar 1 disorder, mixed F3 1.60 [place] [address] [place] [id number] [address] [place] [address] Aug, [place] [address] [place] [id number] [address] [place] [address] Aug, Bipolar 1 disorder, mixed F3 1.60 [place] [address] [address] Aug, Bipolar 1 disorder, mixed F3 1.60 [place] [address] [place] [id number] Aug, Hot flashes due to menopause N95.1 ; Cervicalgia M54.2 and Ataxia R27.0 [place] [address] [place] [address] Jul, Bipolar 1 disorder, mixed F3 1.60 [place] [address] Jul, Bipolar 1 disorder, mixed F3 1.60 [place] [address] Jul, Bipolar 1 disorder, mixed F3 1.60 [place] [address] [place] [address] Jul, Bipolar 1 disorder, mixed F3 1.60 [place] [address] [address] Jul, Bipolar 1 disorder, mixed F3 1.60 [place] [address] [address] Jul, Cervicalgia M54.2 ; Tremor R 25.1 ; Hearing abnormally acute, unspecified laterality H93.239 ; Alopecia L65.9 ; Encounter for immunization Z23 and Family history of thyroid disease Z83.49 [place] [address] [address] Jul, Bipolar 1 disorder, mixed F3 1.60 [place] [address] [place] [address] Jun, [place] [address] [address] Jun, Hearing disorder, unspecifie d laterality H93.299 [place] [address] [id number] [address] [place] [address] Jun, Bipolar 1 disorder, mixed F3 1.60 [facility] [address] [id number] [address] [place] [address] Jun, Bipolar 1 disorder, mixed F3 1.60 [facility] [address] [facility] [id number] [address] [place] [address] Jun, Allergic rhinitis J30.9 [facility] [address] [id number] [address] [place] [address] Jun, Bipolar 1 disorder, mixed F3 1.60 [facility] [address] [id number] [address] [place] [address] Jun, Bipolar 1 disorder, mixed F3 1.60 [facility] [address] [facility] [id number] [address] [place] [address] Jun, Allergic rhinitis J30.9 [facility] [address] [facility] [id number] [address] [place] [address] Jun, Allergic rhinitis J30.9 [facility] [address] [facility] [id number] [address] [place] [address] Jun, Bipolar 1 disorder, mixed F3 1.60 [facility] [address] [facility] [id number] [address] [place] [address] May, Bipolar 1 disorder, mixed F3 1.60 [facility] [address] [id number] [address] [place] [address] May, Bipolar 1 disorder, mixed F3 1.60 [facility] [address] [facility] [id number] [address] [place] [address] May, [facility] [address] [facility] [id number] [address] [place] [address] May, Bipolar 1 disorder, mixed F3 1.60 [facility] [address] [facility] [id number] [address] [place] [address] May, Bipolar 1 disorder, mixed F3 1.60 [facility] [address] [facility] [id number] [address] [place] [address] May, [facility] [address] [facility] [id number] [address] [place] [address] May, [facility] [address] [place] [id number] [address] [place] [address] May, [facility] [address] [place] [id number] [place] [address] May, Abdominal pain, unspecified location R10.9 [facility] [address] [place] [id number] [place] [address] May, [facility] [address] [place] [id number] [place] [address] Apr, Hematuria R31.9 ; Ataxia R27 .0 and Hearing loss, unspecified laterality H91.90 [facility] [address] [address] Apr, Bipolar 1 disorder, mixed F3 1.60 [facility] [address] [address] Apr, Acute effusion of both middl e ears H65.193 [facility] [address] [place] [id number] [address] [place] [address] Apr, Hematuria R31.9 and Pyelonep hritis N12 [facility] [address] [place] [id number] [address] [place] [address] Apr, [facility] [address] [address] Mar, Bipolar 1 disorder, mixed F3 1.60 [facility] [address] [place] [id number] [address] [place] [address] Mar, [facility] [address] [address] Mar, Bipolar 1 disorder, mixed F3 1.60 [place] [address] [place] [id number] [address] [place] [address] Mar, Bipolar 1 disorder, mixed F3 1.60 [place] [address] [place] [id number] [address] [place] [address] Mar, Encounter for immunization Z 23 and Gastritis without bleeding, unspecified chronicity, unspecified gastritis type K29.70 [place] [address] [place] [id number] [address] [place] [address] Mar, Bipolar 1 disorder, mixed F3 1.60 and Grief F43.20 [place] [address] [place] [id number] [address] [place] [address] Mar, Gastritis without bleeding, unspecified chronicity, unspecified gastritis type K29.70 [place] [address] [place] [id number] [address] [place] [address] Mar, Bipolar 1 disorder, mixed F3 1.60 [place] [address] [place] [id number] [address] [place] [address] Mar, Gastritis without bleeding, unspecified chronicity, unspecified gastritis type K29.70 [place] [address] [place] [id number] [address] [place] [address] Mar, [place] [address] [place] [id number] [address] [place], [place] [address] Feb, Bipolar 1 disorder, mixed F3 1.60 [place] [address] [place] [id number] [address] [place] [address] Feb, Bipolar 1 disorder, mixed F3 1.60 and Grief F43.20 [place] [address] [place] [id number] [address] [place] [id number] Feb, Gastritis without bleeding, unspecified chronicity, unspecified gastritis type K29.70 [place] [address] [place] [id number] [address] [place] [address] 14 Feb, 2016 Bipolar 1 disorder, mixed F3 1.60 [facility] [address] [facility] [id number] [address] [place] [address] Feb, Gastroesophageal reflux dise ase, esophagitis presence not specified K21.9 [facility] [address] [id number] [address] [place] [address] Jan, Bipolar 1 disorder, mixed F3 1.60 [facility] [address] [facility] [id number] [address] [place] [address] Jan, Bipolar 1 disorder, mixed F3 1.60 and Unsteady gait R26.81 [facility] [address] [facility] [id number] [address] [place] [address] Jan, Bipolar 1 disorder, mixed F3 1.60 [facility] [address] [facility] [id number] [address] [place] [address] Jan, Bipolar 1 disorder, mixed F3 1.60 and 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 [facility] [address] [facility] [id number] [address] [place] [address] Jan, Bipolar 1 disorder, mixed F3 1.60 [facility] [address] [facility] [id number] [address] [place] [phone] Jan, Bipolar 1 disorder, mixed F3 1.60 [facility] [address] [facility] [id number] [address] [place] [phone] Jan, Bipolar 1 disorder, mixed F3 1.60 ; Grief F43.20 and 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 (current) 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 therapy Z79.899 [facility] [address] [facility] [id number] [address] [place] [phone] Jan, Bipolar 1 disorder, mixed F3 1.60 [facility] [address] [facility] [id number] [address] [place], [place] [id number] Dec, [facility] [address] [facility] [id number] [address] [place] [phone] Dec, Bipolar 1 disorder, mixed F3 1.60 ; Vitamin D deficiency, unspecified E55.9 ; H/O allergic rhinitis Z87.09 ; Other chronic pain G89.29 and Dorsalgia, unspecified M54.9 [facility] [address] [facility] [id number] [address] [place] [phone] Dec, [facility] [address] [place] [id number] [address] [place] [phone] Dec, Bipolar 1 disorder, mixed F3 1.60 [facility] [address] [place] [id number] [address] [place] [phone] Dec, Major depressive disorder, r ecurrent episode, moderate F33.1 [place] [address] [place] [id number] [place] [phone] Dec, Major depressive disorder, r ecurrent episode, moderate F33.1 [place] [id number] [place] [phone] Nov, [place] [id number] [place] [phone] Nov, Bipolar 1 disorder, mixed F3 1.60 [place] [id number] [place] [phone] Nov, Major depressive disorder, r ecurrent episode, moderate F33.1 [place] [address] [place] [id number] [address] [place] [phone] Nov, Cervicalgia M54.2 ; Arthralg ia of hip, unspecified laterality M25.559 ; Allergic rhinitis J30.9 and Hormone replacement therapy Z79.890 [facility] [address] [facility] [id number] [address] [place] [phone] Nov, Other seasonal allergic rhin itis J30.2 [facility] [address] [facility] [id number] [address] [place] [phone] October, Major depressive disorder, r ecurrent episode, moderate F33.1 [facility] [address] [place] [id number] [place] [phone] October, Major depressive disorder, r ecurrent episode, moderate F33.1 and Arthralgia of hip, unspecified laterality M25.559 [place] [address] [facility] [id number] [address] [place] [phone] October, Grief F43.20 ; Hypertension I10 ; Hyperlipidemia, unspecified hyperlipidemia type E78.5 ; Other chronic pain G89.29 and Allergic rhinitis, unspecified allergic rhinitis type J30.9 [place] [address] [place] [id number] [address] [place] [phone] October, Major depressive disorder, r ecurrent episode, moderate F33.1 [place] [address] [place] [id number] [address] [place] [id number] Sep, Major depressive disorder, r ecurrent episode, moderate F33.1 [place] [address] [place] [address] [address] Sep, [place] [address] [place] [id number] [address] [place] [address] Sep, Major depressive disorder, r ecurrent episode, moderate F33.1 [place] [address] [place] [id number] [address] [place] [address] Sep, Grief F43.20 [place] [address] [place] [id number] [address] [place] [address] Aug, Major depressive disorder, r ecurrent episode, moderate F33.1 [place] [address] [place] [id number] [address] [place] [address] Aug, Bipolar 1 disorder, mixed F3 1.60 [place] [address] [place] [id number] [address] [place] [address] Aug, Allergic rhinitis J30.9 ; Ce rvicalgia M54.2 and Low back pain M54.5 [place] [address] [place] [id number] [address] [place] [address] Aug, Major depressive disorder, r ecurrent episode, moderate F33.1 [facility] [address] [facility] [id number] [address] [place] [address] Aug, Sinusitis J32.9 and Tobacco 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 [facility] [address] [facility] [id number] [address] [place] [address] Aug, [facility] [address] [facility] [id number] [address] [place] [address] Aug, Depressive disorder, not els ewhere classified F32.9 ; Hormone replacement therapy Z79.[address] scan, head R93.0 [facility] [address] [facility] [id number] [address] [place] [address] Aug, Major depressive disorder, r ecurrent episode, moderate F33.1 [facility] [address] [facility] [id number] [address] [place] [address] Jul, Major depressive disorder, r ecurrent episode, moderate F33.1 [facility] [address] [facility] [id number] [address] [place] [address] Jul, Abdominal pain R10.9 and Hyp ertension I10 [facility] [address] [facility] [id number] [address] [place] [address] Jul, [facility] [address] [facility] [id number] [address] [place] [address] Jul, Major depressive disorder, r ecurrent episode, moderate F33.1 [facility] [address] [facility] [id number] [address] [place] [address] Jul, [facility] [address] [facility] [id number] [address] [place] [address] Jul, [facility] [address] [facility] [id number] [address] [place] [address] Jun, [facility] [address] [place] [id number] [address] [place] [address] Jun, Depressive disorder, not els ewhere classified F32.9 [facility] [address] [id number] [address] [place] [address] Jun, [facility] [address] [id number] [address] [place] [address] Jun, [facility] [address] [id number] [address] [place] [address] Jun, Arthralgia of hip, unspecifi ed laterality M25.559 ; Bruising, spontaneous R23.3 and Night sweats R61 [facility] [address] [id number] [address] [place] [address] Jun, [facility] [address] [id number] [address] [place] [address] Jun, [facility] [address] [facility] [id number] [address] [place] [address] May, [facility] [address] [id number] [address] [place] [address] May, Myalgia M79.1 and Screening, lipid Z13.220 [facility] [address] [facility] [id number] [address] [place] [address] Apr, Status post cervical spinal fusion Z98.1 ; Fibromyalgia M79.7 and Unsteady gait R26.81 [facility] [address] [id number] [address] [place] [address] Nov, [facility] [address] [id number] [address] [place] [address] Nov, [facility] [address] [facility] [id number] [address] [place] [address] October, [facility] [address] [facility] [id number] [address] [place] [address] October, [facility] [address] [facility] [id number] [address] [place] [address] October, [facility] [address] [id number] [address] [place] [address], [place] [address] October, [facility] [address] [id number] [address] [place] [address], [place] [address] October, [facility] [address] [id number] [address] [place] [address], [place] [address] October, Dysuria 788.1 ; Nausea 787.0 2 and Urinary tract infection 599.0 [facility] [address] [id number] [address] [place] [address], [place] [address] Sep, [facility] [address] [id number] [address] [place] [address], [place] [address] Sep, [facility] [address] [id number] [address] [place] [address], [place] [address] Aug, [facility] [address] [id number] [address] [place] [address], [place] [address] Aug, [facility] [address] [id number] [address] [place] [address], [place] [address] Aug, [facility] [address] [id number] [address] [place] [address], [place] [address] Aug, [facility] [address] [id number] [address] [place] [address], [place] [address] Aug, [facility] [address] [id number] [address] [place] [address], [place] [address] Aug, [facility] [address] [id number] [address] [place] [address], [place] [address] Aug, [facility] [address] [id number] [address] [place] [address], [place] [address] Aug, [facility] [address] [id number] [address] [place] [address], [place] [address] Aug, [facility] [address] [id number] [address] [place] [address] Aug, [facility] [address] [id number] [address] [place] [address], [place] [address] 18 Aug, 2014 [facility] [address] [id number] [address] [place] [address], [place] [address] Aug, [facility] [address] [id number] [address] [place] [address], [place] [address] Aug, [facility] [address] [id number] [address] [place] [address], [place] [address] Aug, [facility] [address] [id number] [address] [place] [address], [place] [address] Aug, [facility] [address] [id number] [address] [place] [address], [place] [address] Aug, [facility] [address] [id number] [address] [place] [address], [place] [address] Aug, 2014 [facility] [address] [id number] [address] [place] [address], [place] [address] 05 Aug, 2014 [facility] [address] [id number] [address] [place] [address], [place] [address] 05 Aug, 2014 [facility] [address] [id number] [address] [place] [address], [place] [address] Aug, [facility] [address] [id number] [address] [place] [address], [place] [address] Aug, [facility] [address] [id number] [address] [place] [address], [place] [address] Aug, [facility] [address] [id number] [address] [place] [address], [place] [address] Jul, [facility] [address] [id number] [address] [place] [address], [place] [address] Jul, [facility] [address] [id number] [address] [place] [address], [place] [address] Jul, [facility] [address] [id number] [address] [place] [address] [place] [address] Jul, 2014 [facility] [address] [id number] [address] [place] [address], [place] [address] Jul, 2014 [facility] [address] [id number] [address] [place] [address], [place] [address] Jul, 2014 [facility] [address] [id number] [address] [place] [address], [place] [address] Jul, 2014 [facility] [address] [id number] [address] [place] [address], [place] [address] Jul, 2014 [facility] [address] [id number] [address] [place] [address], [place] [address] Jul, 2014 [facility] [address] [id number] [address] [place] [address], [place] [address] Jul, 2014 [facility] [address] [id number] [address] [place] [address], [place] [address] Jul, 2014 [facility] [address] [id number] [address] [place] [address], [place] [address] Jul, 2014 [facility] [address] [id number] [address] [place] [address], [place] [address] Jul, [facility] [address] [id number] [address] [place] [address], [place] [address] Jul, [facility] [address] [id number] [address] [place] [address] Jun, [facility] [address] [id number] [address] [place] [address] Jun, [facility] [address] [id number] [address] [place] [address] Jun, [facility] [address] [id number] [address] [place] [address] Jun, [facility] [address] [id number] [address] [place] [address] Jun, [facility] [address] [id number] [address] [place] [address], [place] [address] Jun, [facility] [address] [id number] [address] [place] [address], [place] [address] May, [facility] [address] [id number] [address] [place] [address], [place] [address] May, [facility] [address] [id number] [address] [place] [address], [place] [address] May, [facility] [address] [id number] [address] [place] [address], [place] [address] May, [facility] [address] [id number] [address] [place] [address], [place] [address] May, [facility] [address] [id number] [address] [place] [address], [place] [address] May, [facility] [address] [id number] [address] [place] [address], [place] [address] Apr, [facility] [address] [id number] [address] [place] [address], [place] [address] Apr, [facility] [address] [id number] [address] [place] [address], [place] [address] Apr, [facility] [address] [id number] [address] [place] [address], [place] [address] Apr, [facility] [address] [id number] [address] [place] [address], [place] [address] Apr, [facility] [address] [id number] [address] [place] [address], [place] [address] Apr, [facility] [address] [id number] [address] [place] [address], [place] [address] Mar, [facility] [address] [id number] [address] [place] [address], [place] [address] Mar, [facility] [address] [id number] [address] [place] [address], [place] [address] 09 Mar, 2013 [facility] [address] [id number] [address] [place] [address], [place] [address] Mar, 2013 [facility] [address] [id number] [address] [place] [address], [place] [address] Mar, 2013 [facility] [address] [id number] [address] [place] [address], [place] [address] Mar, 2013 [facility] [address] [id number] [address] [place] [address], [place] [address] Mar, 2013 [facility] [address] [id number] [address] [place] [address], [place] [address] Mar, 2013 [facility] [address] [id number] [address] [place] [address], [place] [address] Mar, 2013 [facility] [address] [id number] [address] [place] [address], [place] [address] Mar, 2013 [facility] [address] [id number] [address] [place] [address], [place] [address] Mar, [facility] [address] [id number] [address] [place] [address], [place] [address] Mar, 2013 [facility] [address] [id number] [address] [place] [address], [place] [address] 30 Sep, 2013 [facility] [address] [id number] [address] [place] [address], [place] [address] 29 Sep, 2013 [facility] [address] [id number] [address] [place] [address], [place] [address] 29 Sep, 2013 [facility] [address] [id number] [address] [place] [address], [place] [address] 23 Sep, 2013 [facility] [address] [id number] [address] [place] [address], [place] [address] 23 Sep, 2013 [facility] [address] [id number] [address] [place] [address], [place] [address] Feb, [facility] [address] [id number] [address] [place] [address], [place] [address] Feb, [facility] [address] [id number] [address] [place] [address], [place] [address] Jan, [facility] [address] [id number] [address] [place] [address], [place] [address] Jan, [facility] [address] [id number] [address] [place] [address], [place] [address] Jan, [facility] [address] [id number] [address] [place] [address], [place] [address] Dec, [facility] [address] [id number] [address] [place] [address], [place] [address] Dec, [facility] [address] [id number] [address] [place] [address], [place] [address] Dec, [facility] [address] [id number] [address] [place] [address], [place] [address] Dec, [facility] [address] [id number] [address] [place] [address], [place] [address] Sep, [facility] [address] [id number] [address] [place] [address], [place] [address] Sep, [facility] [address] [id number] [address] [place] [address], [place] [address] Sep, [facility] [address] [id number] [address] [place] [address], [place] [address] Sep, [facility] [address] [id number] [address] [place] [address], [place] [address] Sep, [facility] [address] [id number] [address] [place] [address], [place] [address] Sep, [facility] [address] [id number] [address] [place] [address], [place] [address] Sep, [facility] [address] [id number] [address] [place] [address], [place] [address] Sep, [facility] [address] [id number] [address] [place] [address], [place] [address] Aug, [facility] [address] [id number] [address] [place] [address], [place] [address] Aug, [facility] [address] [id number] [address] [place] [address], [place] [address] May, [facility] [address] [id number] [address] [place] [address], [place] [address] May, [facility] [address] [id number] [address] [place] [address], [place] [address] Apr, [facility] [address] [id number] [address] [place] [address], [place] [address] Apr, [facility] [address] [id number] [address] [place] [address], [place] [address] Apr, [facility] [address] [id number] [address] [place] [address], [place] [address] Apr, [facility] [address] [id number] [address] [place] [address], [place] [address] Apr, [facility] [address] [id number] [address] [place] [address], [place] [address] Apr, [facility] [address] [id number] [address] [place] [address], [place] [address] May, [facility] [address] [id number] [address] [place] [address], [place] [address] 18 May, 2012 [facility] [address] [id number] [address] [place] [address], [place] [address] 15 May, 2012 [facility] [address] [id number] [address] [place] [address], [place] [address] 15 May, 2012 [facility] [address] [id number] [address] [place] [address], [place] [address] 13 May, 2012 [facility] [address] [id number] [address] [place] [address], [place] [address] 13 May, 2012 [facility] [address] [id number] [address] [place] [address], [place] [address] 13 Apr, 2012 [facility] [address] [id number] [address] [place] [address], [place] [address] 13 Apr, 2012 [facility] [address] [id number] [address] [place] [address], [place] [address] 08 Apr, 2012 [facility] [address] [id number] [address] [place] [address], [place] [address] 08 Apr, 2012 [facility] [address] [id number] [address] [place] [address], [place] [address] Apr, [facility] [address] [id number] [address] [place] [address], [place] [address] Apr, [facility] [address] [id number] [address] [place] [address], [place] [address] Apr, [facility] [address] [id number] [address] [place] [address], [place] [address] Apr, [facility] [address] [id number] [address] [place] [address], [place] [address] Apr, [facility] [address] [id number] [address] [place] [address], [place] [address] Apr, [facility] [address] [id number] [address] [place] [address], [place] [address] Mar, [facility] [address] [id number] [address] [place] [address], [place] [address] Mar, [facility] [address] [id number] [address] [place] [address], [place] [address] Mar, [facility] [address] [id number] [address] [place] [address], [place] [address] Mar, [facility] [address] [id number] [address] [place] [address], [place] [address] Mar, [facility] [address] [id number] [address] [place] [address], [place] [address] Mar, [facility] [address] [id number] [address] [place] [address], [place] [address] Mar, [facility] [address] [id number] [address] [place] [address], [place] [address] Mar, [facility] [address] [id number] [address] [place] [address], [place] [address] Mar, [facility] [address] [id number] [address] [place] [address], [place] [address] Feb, [facility] [address] [id number] [address] [place] [address], [place] [address] 16 Feb, 2012 [facility] [address] [id number] [address] [place] [address], [place] [address] Feb, [facility] [address] [id number] [address] [place] [address], [place] [address] Jan, [facility] [address] [id number] [address] [place] [address], [place] [address] Jan, [facility] [address] [id number] [address] [place] [address], [place] [address] Jan, [facility] [address] [id number] [address] [place] [address], [place] [address] Jan, [facility] [address] [id number] [address] [place] [address] Jan, [facility] [address] [id number] [address] [place] [address], [place] [address] Jan, [facility] [address] [id number] [address] [place] [address], [place] [address] 16 Jan, 2012 [facility] [address] [id number] [address] [place] [address], [place] [address] 15 Jan, 2012 [facility] [address] [id number] [address] [place] [id number] Jan, [facility] [address] [id number] [address] [place] [address], [place] [address] Jan, [facility] [address] [id number] [address] [place] [address], [place] [address] Dec, [facility] [address] [id number] [address] [place] [address], [place] [address] Dec, [facility] [address] [id number] [address] [place] [address], [place] [address] Dec, [facility] [address] [id number] [address] [place] [address], [place] [address] Dec, [facility] [address] [id number] [address] [place] [address], [place] [address] Nov, [facility] [address] [id number] [address] [place] [address], [place] [address] Nov, [facility] [address] [id number] [address] [place] [address], [place] [address] Nov, [facility] [address] [id number] [address] [place] [address], [place] [address] October, [facility] [address] [id number] [address] [place] [address], [place] [address] October, [facility] [address] [id number] [address] [place] [address], [place] [address] October, [facility] [address] [id number] [address] [place] [address], [place] [address] October, [facility] [address] [id number] [address] [place] [address], [place] [address] October, [facility] [address] [id number] [address] [place] [address], [place] [address] October, [facility] [address] [id number] [address] [place] [address], [place] [address] Aug, [facility] [address] [id number] [address] [place] [address] 10 Mar, 2011 [facility] [address] [facility] [id number] [address] [place] [address] 16 Nov, 2010 [facility] [address] [id number] [address] [place] [address] May, [facility] [address] [facility] [id number] [address] [place] [address] May, [facility] [address] [facility] [id number] [address] [place] [address] Apr, [facility] [address] [facility] [id number] [address] [place] [address] Mar, [facility] [address] [facility] [id number] [address] [place] [address] Mar, IMMUNIZATIONS No Known Immunizations SOCIAL HISTORY Never Assessed REASON FOR VISIT PLAN OF CARE VITAL SIGNS MEDICATIONS Unknown Medications RESULTS No Results PROCEDURES No Known procedures INSTRUCTIONS MEDICATIONS ADMINISTERED No Known Medications MEDICAL (GENERAL) HISTORY Type Description Date Medical History Severe spinal stenosis [facility] cervical spine CT and MRI done [...]
--- OUTSIDE RECORDS SUMMARY | 2020-02-02 19:39 | XMS REPORT ---
Author Author Sydnie STEPHENSON Organization [facility] Address [address] [place] [address] Care Team Providers Care Loan Officer Name Role Phone DAVEY STEPHENSON Unavailable PROBLEMS Type Condition ICD9-CM Code YYN28-AM Code Onset Dates Condition S tatus SNOMED Code Problem Night sweats R61 Active 1087751 0 Problem Hypertension I10 Active 1745449 3 Problem Arthralgia of hip, unspecified laterality M25.559 Active 76144413 Problem Other chronic pain G89.29 Active 8 7422919 Problem Grief F43.20 Active 42748889 Problem Gastritis without bleeding, unspecified chronicity, unspecified gastritis type K29.70 Active 913219814 Problem Hyperlipidemia, unspecified hyperlipidemia type E7 8.5 Active 17184258 Problem Acute left-sided low back pain with left-sided sciatica M54.42 Active 480622505 Problem Abnormal CT scan, head R93.0 Active 063591158 Problem Bladder spasm N32.89 Active 177289 006 Problem Age-related osteoporosis without current pathological fracture M81.0 Active 13698735 Problem Bruising, spontaneous R23.3 Active 948417818 Problem Sensorineural hearing loss (SNHL) of both ears H90 .3 Active 725942144 Problem History of colon polyps Z86.010 Active 729085444 Problem Allergic rhinitis J30.9 Active 61 848703 Problem Hematuria, unspecified type R31.9 Ac tive 64684581 Problem Generalized anxiety disorder F41.1 A ctive 00154594 Problem Imbalance R26.89 Active 303482467 Problem Hammer toe of right foot M20.41 Activ e 693261303 Problem Fibromyalgia M79.7 Active 9584320 7 Problem Hormone replacement therapy Z79.890 Ac tive 483161268 Problem Major depressive disorder, recurrent episode, moderate F33.1 Active 077350495 Problem Sciatica of left side M54.32 Active 88921642 Problem Plantar wart of right foot B07.0 Act mitchell [id number] Problem Slow transit constipation K59.01 Acti ve 29338206 Problem Osteoporotic compression fracture of spine with delayed healing M80.88XG Active 15772226 Problem Ataxia R27.0 Active 54996204 Problem Age-related osteoporosis wit h current pathological fracture with delayed healing, subsequent encounter M80.00XG Active 593093713 Problem Bipolar 1 disorder, mixed F31.60 Acti ve 84482484 Problem Hearing loss, unspecified laterality H91.90 Active 43751784 Problem Tobacco use disorder F17.200 Active 802398557 Problem Post menopausal syndrome N95.1 Activ e 643875945 Problem Sciatica of right side M54.31 Active 07481858 Problem Hearing loss, unspecified hearing loss type, uns pecified laterality H91.90 Active 66002225 ALLERGIES No Information ENCOUNTERS Encounter Location Date Diagnosis [facility] [address] [facility] [id number] [address] [place] [address] Dec, [facility] [address] [place] [id number] [place] [address] October, [facility] [address] [facility] [id number] [address] [place] [address] October, Gum lesion K06.8 [facility] [address] [facility] [id number] [address] [place] [address] Sep, [facility] [address] [facility] [id number] [address] [place] [address] Sep, Age-related osteoporosis wit h current pathological fracture with delayed healing, subsequent encounter M80.00XG and Sore in mouth K13.79 [facility] [address] [facility] [id number] [address] [place] [address] Sep, [facility] [address] [facility] [id number] [address] [place] [address] Sep, Bipolar 1 disorder, mixed F3 1.60 [facility] [address] [facility] [id number] [address] [place] [address] Sep, Compression fracture of L1 v ertebra, sequela S32.010S ; Tobacco use disorder F17.200 ; Age-related osteoporosis with current pathological fracture with routine healing, subsequent encounter M80.00XD ; Allergic rhinitis J30.9 ; Generalized anxiety disorder F41.1 and Recurrent UTI N39.0 [facility] [address] [facility] [id number] [address] [place] [address] 14 Sep, 2019 Bipolar 1 disorder, mixed F3 1.60 ; Generalized anxiety disorder F41.1 and Tobacco use disorder F17.200 [facility] [address] [facility] [id number] [address] [place] [phone] 13 Sep, 2019 [facility] [address] [facility] [id number] [address] [place] [address] 08 Sep, 2019 Bipolar 1 disorder, mixed F3 1.60 [facility] [address] [facility] [id number] [address] [place] [address] 23 Aug, 2019 [facility] [address] [place] [id number] [address] [place] [address] 23 Aug, 2019 Yeast vaginitis B37.3 [facility] [address] [facility] [id number] [address] [place] [address] 14 Aug, 2019 Vaginal discharge N89.8 [facility] [address] [facility] [id number] [address] [place] [address] 10 Aug, 2019 Bipolar 1 disorder, mixed F3 1.60 [facility] [address] [place] [id number] [address] [place] [address] 04 Aug, 2019 Age-related osteoporosis wit h current pathological fracture with routine healing, subsequent encounter M80.00XD [facility] [address] [facility] [id number] [address] [place] [address] 24 Jul, 2019 Age-related osteoporosis wit h current pathological fracture with routine healing, subsequent encounter M80.00XD [facility] [address] [facility] [id number] [address] [place] [address] 24 Jul, 2019 Osteoporotic compression fra cture of spine with delayed healing M80.88XG and Tobacco use disorder F17.200 [facility] [address] [facility] [id number] [address] [place] [address] 11 Jul, 2019 Bipolar 1 disorder, mixed F3 1.60 [facility] [address] [facility] [id number] [address] [place] [address] 07 Jul, 2019 [facility] [address] [facility] [id number] [address] [place] [address] 03 Jul, 2019 Tobacco use disorder F17.200 [facility] [address] [facility] [id number] [address] [place] [address] 15 Jun, 2019 Bipolar 1 disorder, mixed F3 1.60 [facility] [address] [facility] [id number] [address] [place] [address] 07 Jun, 2019 Bipolar 1 disorder, mixed F3 1.60 ; Generalized anxiety disorder F41.1 and Tobacco use disorder F17.200 [facility] [address] [place] [id number] [place] [address] Jun, Tobacco use disorder F17.200 [facility] [address] [place] [id number] [address] [place] [address] May, [facility] [address] [place] [id number] [address] [place] [address] May, Compression fracture of L1 v ertebra with routine healing, subsequent encounter S32.010D [facility] [address] [place] [id number] [address] [place] [address] May, [facility] [address] [place] [id number] [address] [place] [address] May, [facility] [address] [place] [id number] [place] [address] May, [facility] [address] [place] [id number] [address] [place] [address] May, [facility] [address] [place] [id number] [address] [place] [address] May, [facility] [address] [place] [address] May, [facility] [address] [place] [id number] [place] [address] May, [facility] [address] [place] [id number] [address] [place] [address] May, Bipolar 1 disorder, mixed F3 1.60 [place] [address] [place] [id number] [place] [address] May, Closed fracture of right upp er extremity with routine healing, subsequent encounter S42.301D and Hearing loss, unspecified hearing loss type, unspecified laterality H91.90 [place] [address] [address] May, [place] [address] [address] Apr, Allergic rhinitis J30.9 ; Ab dominal pain, unspecified location R10.9 and Seborrheic keratosis L82.1 [place] [address] [address] Mar, Bipolar 1 disorder, mixed F3 1.60 [place] [address] [address] Mar, Bipolar 1 disorder, mixed F3 1.60 ; Generalized anxiety disorder F41.1 and Tobacco use disorder F17.200 [place] [address] [place] [id number] [place] [address] Feb, Excessive gas R14.3 ; Other chronic pain G89.29 ; Encounter for immunization Z23 ; Hyperlipidemia, unspecified hyperlipidemia type E78.5 ; Bipolar 1 disorder, mixed F31.60 and Other penitentiary (current) drug therapy Z79.899 [place] [address] [place] [id number] [place] [address] Feb, Bipolar 1 disorder, mixed F3 1.60 [place] [address] [place] [address] [place] [address] Jan, Sciatica of right side M54.3 1 ; Low back pain M54.5 and Major depressive disorder, recurrent episode, moderate F33.1 [facility] [address] [facility] [id number] [address] [place] [address] Jan, Bipolar 1 disorder, mixed F3 1.60 [facility] [address] [place] [id number] [address] [place] [address] Dec, Normal pelvic exam Z01.419 [facility] [address] [place] [id number] [place] [address] Dec, Bipolar 1 disorder, mixed F3 1.60 [facility] [address] [place] [id number] [place] [address] Nov, Bipolar 1 disorder, mixed F3 1.60 [facility] [address] [place] [id number] [place] [address] Nov, Bipolar 1 disorder, mixed F3 1.60 ; Generalized anxiety disorder F41.1 ; Tobacco use disorder F17.200 and Other ocean transportation intermediary (current) drug therapy Z79.899 [facility] [address] [place] [id number] [address] [place] [address] Nov, [facility] [address] [place] [id number] [address] [place] [address] Nov, Bipolar 1 disorder, mixed F3 1.60 [facility] [address] [place] [id number] [place] [address] October, Bipolar 1 disorder, mixed F3 1.60 [facility] [address] [place] [id number] [place] [address] October, Bipolar 1 disorder, mixed F3 1.60 [facility] [address] [place] [id number] [place] [address] October, [facility] [address] [place] [id number] [address] [place] [address] October, Bipolar 1 disorder, mixed F3 1.60 ; Generalized anxiety disorder F41.1 and Tobacco use disorder F17.200 [place] [address] [place] [id number] [place] [address] Sep, [place] [address] [place] [id number] [place] [address] Sep, [facility] Z[facility].00 ; Major depressive disorder, recurrent episode, moderate F33.1 ; Allergic rhinitis J30.9 ; Bipolar 1 disorder, mixed F31.60 ; Fibromyalgia M79.7 ; Hyperlipidemia, unspecified hyperlipidemia type E78.5 ; Hormone replacement therapy Z79.890 ; Encounter for screening for lung cancer Z12.2 and Tobacco use disorder F17.200 [place] [address] [address] Sep, Bipolar 1 disorder, mixed F3 1.60 [place] [address] [address] Sep, Other chronic pain G89.29 ; Hyperlipidemia, unspecified hyperlipidemia type E78.5 ; Breast cancer screening Z12.31 and Post menopausal syndrome N95.1 [place] [address] [place] [id number] [place] [address] 16 Sep, 2018 Bipolar 1 disorder, mixed F3 1.60 [place] [address] [place] [id number] [place] [address] Sep, Bipolar 1 disorder, mixed F3 1.60 ; Generalized anxiety disorder F41.1 and Tobacco use disorder F17.200 [place] [address] [place] [address] Sep, Gastritis without bleeding, unspecified chronicity, unspecified gastritis type K29.70 [place] [address] [place] [id number] [place] [address] Sep, Exercise counseling Z71.[address] [address] Aug, Exercise counseling Z71.82 [facility] [address] [place] [id number] [address] [place] [address] Aug, Bipolar 1 disorder, mixed F3 1.60 [place] [address] [place] [id number] [place] [address] Aug, Exercise counseling Z71.82 [place] [address] [place] [id number] [place] [address] Aug, Bipolar 1 disorder, mixed F3 1.60 [place] [address] [place] [id number] [place] [address] Aug, Gastritis without bleeding, unspecified chronicity, unspecified gastritis type K29.70 ; Tobacco abuse Z72.0 ; Generalized anxiety disorder F41.1 and Weight gain R63.5 [place] [address] [place] [address] Aug, Bipolar 1 disorder, mixed F3 1.60 ; Generalized anxiety disorder F41.1 and Tobacco use disorder F17.200 [place] [address] [place] [address] Jul, Bipolar 1 disorder, mixed F3 1.60 [place] [address] [place] [id number] [place] [address] Jul, [place] [address] [address] Jul, Bipolar 1 disorder, mixed F3 1.60 [place] [address] [place] [id number] [place] [address] Jul, Allergic rhinitis J30.9 ; Ma darion depressive disorder, recurrent episode, moderate F33.1 and Tobacco 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 [place] [address] [place] [id number] [place] [address] Jun, [place] [address] [place] [id number] [place] [address] Jun, [place] [address] [place] [id number] [place] [address] Jun, Bipolar 1 disorder, mixed F3 1.60 [place] [address] [place] [id number] [place] [address] Jun, Bipolar 1 disorder, mixed F3 1.60 [place] [address] [address] Jun, Bipolar 1 disorder, mixed F3 1.60 [place] [address] [place] [id number] [place] [address] Jun, Generalized anxiety disorder F41.1 ; Tobacco abuse Z72.0 and Major depressive disorder, recurrent episode, moderate F33.1 [place] [address] [address] May, Bipolar 1 disorder, mixed F3 1.60 [place] [address] [address] May, Bipolar 1 disorder, mixed F3 1.60 and Generalized anxiety disorder F41.1 [place] [address] [address] May, Bipolar 1 disorder, mixed F3 1.60 [place] [address] [address] May, Allergic rhinitis J30.9 [place] [address] [place] [id number] [place] [address] May, Bipolar 1 disorder, mixed F3 1.60 [place] [address] [address] May, [place] [address] [address] Apr, Allergic rhinitis J30.9 ; Dy sfunction of both eustachian tubes H69.83 ; History of bladder surgery Z98.890 and Cervicalgia M54.2 [place] [address] [facility] [id number] [address] [place] [address] Mar, Bipolar 1 disorder, mixed F3 1.60 [facility] [address] [facility] [id number] [address] [place] [address] Mar, [facility] [address] [facility] [id number] [address] [place] [address] Mar, Slow transit constipation K5 9.01 ; Encounter for immunization Z23 and Generalized anxiety disorder F41.1 [facility] [address] [facility] [id number] [address] [place] [address] 27 Feb, 2018 Bipolar 1 disorder, mixed F3 1.60 [facility] [address] [facility] [id number] [address] [place] [address] 26 Feb, 2018 Allergic rhinitis J30.9 [facility] [address] [facility] [id number] [address] [place] [address] 24 Feb, 2018 Bipolar 1 disorder, mixed F3 1.60 [facility] [address] [facility] [id number] [address] [place] [address] Feb, Bipolar 1 disorder, mixed F3 1.60 and Generalized anxiety disorder F41.1 [facility] [address] [facility] [id number] [address] [place] [address] 13 Feb, 2018 Bipolar 1 disorder, mixed F3 1.60 [facility] [address] [facility] [id number] [address] [place] [address] 11 Feb, 2018 Allergic rhinitis J30.9 [facility] [address] [facility] [id number] [address] [place] [address] Feb, [facility] [address] [facility] [id number] [address] [place] [address] Jan, Bipolar 1 disorder, mixed F3 1.60 [facility] [address] [facility] [id number] [address] [place] [address] Jan, Low back pain M54.5 ; Hyperl ipidemia, unspecified hyperlipidemia type E78.5 and Bipolar 1 disorder, mixed F31.60 [facility] [address] [facility] [id number] [address] [place] [address] Jan, Bipolar 1 disorder, mixed F3 1.60 [facility] [address] [facility] [id number] [address] [place], [place] [address] Jan, Bipolar 1 disorder, mixed F3 1.60 [facility] [address] [facility] [id number] [address] [place] [address] Jan, Bipolar 1 disorder, mixed F3 1.60 [facility] [address] [facility] [id number] [address] [place] [address] Jan, Bipolar 1 disorder, mixed F3 1.60 [facility] [address] [facility] [id number] [address] [place] [address] Dec, Bipolar 1 disorder, mixed F3 1.60 ; Generalized anxiety disorder F41.1 and Other penitentiary (current) drug therapy Z79.899 [facility] [address] [facility] [id number] [address] [place] [address] Dec, Other ocean transportation intermediary (current) dr ug therapy Z79.899 [facility] [address] [facility] [id number] [address] [place] [address] Dec, Bipolar 1 disorder, mixed F3 1.60 [facility] [address] [facility] [id number] [address] [place] [address] Dec, Bipolar 1 disorder, mixed F3 1.60 [facility] [address] [facility] [id number] [address] [place] [address] Nov, Bipolar 1 disorder, mixed F3 1.60 [facility] [address] [facility] [id number] [address] [place] [address] Nov, Bipolar 1 disorder, mixed F3 1.60 [facility] [address] [facility] [id number] [address] [place] [address] Nov, Bipolar 1 disorder, mixed F3 1.60 [facility] [address] [facility] [id number] [address] [place], [place] [id number] Nov, Allergic rhinitis J30.9 [facility] [id number] [place] [id number] Nov, Allergic rhinitis J30.9 [facility] [address] [place] [id number] [address] [place] [phone] Nov, [facility] [address] [id number] Nov, Bipolar 1 disorder, mixed F3 1.60 [place] [address] [address] Nov, Fibromyalgia M79.7 and Aller gic rhinitis J30.9 [place] [address] [address] [place] [id number] [place] [phone] October, Bipolar 1 disorder, mixed F3 1.60 [facility] [address] [address] October, Acute nasopharyngitis J00 [facility] [address] [address] October, Bitten or stung by nonvenomo us insect and other nonvenomous arthropods, initial encounter W57.XXXA and Insect bite (nonvenomous) of abdominal wall, initial encounter S30.861A [place] [address] [address] October, Insect bite (nonvenomous) of abdominal wall, initial encounter S30.861A ; Bitten or stung by nonvenomous insect and other nonvenomous arthropods, initial encounter W57.XXXA ; Allergic rhinitis J30.9 and Low back pain M54.5 [place] [address] [address] [place] [id number] [address] [place] [address] October, Bipolar 1 disorder, mixed F3 1.60 [place] [address] [place] [id number] [address] [place] [address] October, [facility] [address] [id number] [address] [place] [address] October, [facility] [address] [id number] [address] [place] [address] October, Bipolar 1 disorder, mixed F3 1.60 [facility] [address] [id number] [address] [place] [address] Sep, Bipolar 1 disorder, mixed F3 1.60 [facility] [address] [id number] [address] [place] [address] Sep, Other chronic pain G89.29 [facility] [address] [facility] [id number] [address] [place] [address] Sep, [facility] [address] [facility] [id number] [address] [place] [address] Sep, Bipolar 1 disorder, mixed F3 1.60 [facility] [address] [facility] [id number] [address] [place] [address] Sep, Allergic rhinitis J30.9 and Sciatica of left side M54.32 [facility] [address] [facility] [id number] [address] [place] [address] Sep, Bipolar 1 disorder, mixed F3 1.60 [facility] [address] [facility] [id number] [address] [place] [address] Sep, Bipolar 1 disorder, mixed F3 1.60 and Generalized anxiety disorder F41.1 [facility] [address] [id number] [address] [place] [address] Aug, [facility] [address] [facility] [id number] [address] [place] [address] Aug, Bipolar 1 disorder, mixed F3 1.60 [facility] [address] [facility] [id number] [address] [place] [address] Aug, Bipolar 1 disorder, mixed F3 1.60 [facility] [address] [facility] [id number] [address] [place] [address] Aug, [facility] [address] [facility] [id number] [address] [place] [address] Aug, Generalized anxiety disorder F41.1 [facility] [address] [facility] [id number] [address] [place] [address] Aug, Bipolar 1 disorder, mixed F3 1.60 [facility] [address] [place] [id number] [address] [place] [address] Aug, Plantar wart of right foot B 07.0 [facility] [address] [facility] [id number] [address] [place] [address] Aug, Bipolar 1 disorder, mixed F3 1.60 [facility] [address] [place] [id number] [address] [place] [address] Jul, Bipolar 1 disorder, mixed F3 1.60 [facility] [address] [place] [id number] [address] [place] [address] Jul, [facility] [address] [place] [id number] [address] [place] [address] Jul, Bipolar 1 disorder, mixed F3 1.60 [facility] [address] [place] [id number] [address] [place] [address] Jul, Generalized anxiety disorder F41.1 [facility] [address] [place] [id number] [address] [place] [address] Jul, Bipolar 1 disorder, mixed F3 1.60 [facility] [address] [facility] [id number] [address] [place] [address] Jul, Acute left-sided low back pa in with left-sided sciatica M54.42 [facility] [address] [place] [id number] [address] [place] [address] 05 Jul, 2017 Coccydynia M53.3 [facility] [address] [place] [id number] [address] [place] [address] Jun, Bipolar 1 disorder, mixed F3 1.60 [facility] [address] [place] [id number] [address] [place] [address] Jun, Acute nasopharyngitis J00 [facility] [address] [place] [id number] [address] [place] [address] Jun, Bipolar 1 disorder, mixed F3 1.60 [facility] [address] [address] Jun, Fibromyalgia M79.7 [facility] [address] [place] [id number] [place] [address] Jun, Bipolar 1 disorder, mixed F3 1.60 [place] [address] [address] Jun, Fibromyalgia M79.7 and Bipol ar 1 disorder, mixed F31.60 [place] [address] [address] May, Bipolar 1 disorder, mixed F3 1.60 ; Generalized anxiety disorder F41.1 and Other penitentiary (current) drug therapy Z79.899 [place] [address] [address] May, Bipolar 1 disorder, mixed F3 1.60 [facility] [address] [address] May, Cough R05 and Body aches R52 [facility] [address] [place] [id number] [address] [place] [address] May, Bladder spasm N32.89 and Acu te cystitis without hematuria N30.00 [place] [address] [address] May, Bipolar 1 disorder, mixed F3 1.60 [facility] [address] [address] Apr, [facility] [address] [address] Apr, Major depressive disorder, r ecurrent episode, moderate F33.1 and Encounter for immunization Z23 [facility] [address] [place] [address] Apr, Bipolar 1 disorder, mixed F3 1.60 [facility] [address] [address] Apr, Bipolar 1 disorder, mixed F3 1.60 [place] [address] [address] Apr, Bipolar 1 disorder, mixed F3 1.60 [place] [address] [place] [address] Apr, Yeast vaginitis B37.3 [place] [address] [address] Apr, Bipolar 1 disorder, mixed F3 1.60 [facility] [address] [address] Apr, Cellulitis L03.[address] for immunization Z23 [place] [address] [address] Apr, Bipolar 1 disorder, mixed F3 1.60 [place] [address] [address] Mar, Bipolar 1 disorder, mixed F3 1.60 [place] [address] [address] Mar, Bipolar 1 disorder, mixed F3 1.60 [facility] [address] [place] [address] Mar, Imbalance R26.89 and Encount er for immunization Z23 [facility] [address] [address] Mar, Generalized anxiety disorder F41.1 [place] [address] [facility] [id number] [address] [place] [address] Mar, Bipolar 1 disorder, mixed F3 1.60 [place] [address] [facility] [id number] [address] [place] [address] Mar, Generalized anxiety disorder F41.1 [place] [address] [facility] [id number] [address] [place] [address] Mar, Bipolar 1 disorder, mixed F3 1.60 [place] [address] [facility] [id number] [address] [place] [address] Mar, Bipolar 1 disorder, mixed F3 1.60 [place] [address] [place] [id number] [address] [place] [address] Feb, Bipolar 1 disorder, mixed F3 1.60 [place] [address] [place] [id number] [address] [place] [address] Feb, Bipolar 1 disorder, mixed F3 1.60 and Generalized anxiety disorder F41.1 [place] [address] [facility] [id number] [address] [place] [address] Feb, Gastritis without bleeding, unspecified chronicity, unspecified gastritis type K29.70 ; Hammer toe of right foot M20.41 and Other viral warts B07.8 [place] [address] [facility] [id number] [address] [place] [address] Feb, Bipolar 1 disorder, mixed F3 1.60 [place] [address] [facility] [id number] [address] [place] [address] Feb, Bipolar 1 disorder, mixed F3 1.60 [place] [address] [facility] [id number] [address] [place] [address] 05 Feb, 2017 Bipolar 1 disorder, mixed F3 1.60 [place] [address] [facility] [id number] [address] [place] [address] Jan, Encounter for screening mamm ogram for breast cancer Z12.31 ; Other viral warts B07.8 and Allergic rhinitis J30.9 [facility] [address] [facility] [id number] [address] [place] [address] Jan, Bipolar 1 disorder, mixed F3 1.60 [facility] [address] [facility] [id number] [address] [place] [address] Jan, Bipolar 1 disorder, mixed F3 1.60 [facility] [address] [facility] [id number] [address] [place] [address] Jan, [facility] [address] [facility] [id number] [address] [place] [address] Jan, Bipolar 1 disorder, mixed F3 1.60 [place] [address] [facility] [id number] [address] [place] [address] Jan, Bipolar 1 disorder, mixed F3 1.60 [place] [address] [place] [id number] [address] [place] [address] Jan, Allergic rhinitis J30.9 ; He maturia R31.9 and Colon cancer screening Z12.11 [facility] [address] [facility] [id number] [address] [place] [address] Dec, Bipolar 1 disorder, mixed F3 1.60 [place] [address] [place] [id number] [address] [place] [address] Dec, Bipolar 1 disorder, mixed F3 1.60 ; Generalized anxiety disorder F41.1 and Other ocean transportation intermediary (current) drug therapy Z79.899 [place] [address] [facility] [id number] [address] [place] [address] Dec, Bipolar 1 disorder, mixed F3 1.60 [place] [id number] N [facility] [id number] [address] [place] [address] Dec, Bipolar 1 disorder, mixed F3 1.60 [facility] [address] [facility] [id number] [address] [place] [address] Dec, Bipolar 1 disorder, mixed F3 1.60 [facility] [address] [place] [id number] [address] [place] [address] Dec, Low back pain M54.5 and Recu rrent urinary tract infection N39.0 [facility] [address] [facility] [id number] [address] [place] [address] Nov, Bipolar 1 disorder, mixed F3 1.60 [facility] [address] [facility] [id number] [address] [place] [address] Nov, Bipolar 1 disorder, mixed F3 1.60 [facility] [address] [place] [id number] [address] [place] [address] Nov, Bipolar 1 disorder, mixed F3 1.60 [place] [address] [place] [id number] [address] [place] [address] Nov, Bipolar 1 disorder, mixed F3 1.60 [facility] [address] [place] [id number] [address] [place] [address] Nov, [facility] [address] [place] [id number] [address] [place] [address] Nov, Anesthesia of skin R20.0 ; F requent UTI N39.0 ; Tobacco abuse Z72.0 and Colon cancer screening Z12.11 [facility] [address] [place] [id number] [address] [place] [address] Nov, Bipolar 1 disorder, mixed F3 1.60 [facility] [address] [place] [id number] [address] [place] [address] October, Bipolar 1 disorder, mixed F3 1.60 [facility] [address] [facility] [id number] [address] [place] [address] October, Bipolar 1 disorder, mixed F3 1.60 [facility] [address] [place] [id number] [address] [place] [address] October, Bipolar 1 disorder, mixed F3 1.60 [facility] [address] [place] [id number] [address] [place] [address] October, Bipolar 1 disorder, mixed F3 1.60 [facility] [address] [address] October, Bipolar 1 disorder, mixed F3 1.60 [place] [address] [address] October, Cervicalgia M54.2 and Bipola r 1 disorder, mixed F31.60 [place] [address] [address] October, Hypertension I10 ; Hyperlipi demia, unspecified hyperlipidemia type E78.5 and Family history of thyroid disease Z83.49 [place] [address] [address] October, [place] [address] [address] October, Hypertension I10 ; Hyperlipi demia, unspecified hyperlipidemia type E78.5 and Family history of thyroid problem Z83.49 [place] [address] [address] October, Bipolar 1 disorder, mixed F3 1.60 [place] [address] [address] Sep, Bipolar 1 disorder, mixed F3 1.60 [place] [address] [address] Sep, Bipolar 1 disorder, mixed F3 1.60 [place] [address] [address] Sep, Bipolar 1 disorder, mixed F3 1.60 [place] [address] [address] Sep, History of colon polyps Z86. 010 and Hematochezia K92.1 [place] [address] [address] Sep, Major depressive disorder, r ecurrent episode, moderate F33.1 [place] [address] [facility] [id number] [address] [place] [address] Sep, Bipolar 1 disorder, mixed F3 1.60 [facility] [address] [facility] [id number] [address] [place] [address] Aug, Hot flashes due to menopause N95.1 [facility] [address] [facility] [id number] [address] [place] [address] Aug, Bipolar 1 disorder, mixed F3 1.60 [facility] [address] [facility] [id number] [address] [place] [address] Aug, [facility] [address] [place] [id number] [address] [place] [address] Aug, Bipolar 1 disorder, mixed F3 1.60 [facility] [address] [place] [id number] [address] [place] [address] Aug, Bipolar 1 disorder, mixed F3 1.60 [facility] [address] [place] [id number] [address] [place] [address] Aug, Hot flashes due to menopause N95.1 ; Cervicalgia M54.2 and Ataxia R27.0 [facility] [address] [facility] [id number] [address] [place] [address] Jul, Bipolar 1 disorder, mixed F3 1.60 [facility] [address] [place] [id number] [address] [place] [address] Jul, Bipolar 1 disorder, mixed F3 1.60 [facility] [address] [place] [id number] [address] [place] [address] Jul, Bipolar 1 disorder, mixed F3 1.60 [facility] [address] [place] [id number] [address] [place] [address] Jul, Bipolar 1 disorder, mixed F3 1.60 [facility] [address] [place] [id number] [address] [place] [address] Jul, Bipolar 1 disorder, mixed F3 1.60 [place] [address] [address] 08 Jul, 2016 Cervicalgia M54.2 ; Tremor R 25.1 ; Hearing abnormally acute, unspecified laterality H93.239 ; Alopecia L65.9 ; Encounter for immunization Z23 and Family history of thyroid disease Z83.49 [place] [address] [address] Jul, Bipolar 1 disorder, mixed F3 1.60 [place] [address] [address] Jun, [place] [id number] Jun, Hearing disorder, unspecifie d laterality H93.299 [place] [address] [address] Jun, Bipolar 1 disorder, mixed F3 1.60 [place] [address] [address] Jun, Bipolar 1 disorder, mixed F3 1.60 [place] [address] [address] Jun, Allergic rhinitis J30.9 [place] [address] [address] Jun, Bipolar 1 disorder, mixed F3 1.60 [place] [address] [address] Jun, Bipolar 1 disorder, mixed F3 1.60 [place] [address] [address] Jun, Allergic rhinitis J30.9 [place] [address] [address] Jun, Allergic rhinitis J30.9 [place] [address] [address] Jun, Bipolar 1 disorder, mixed F3 1.60 [facility] [address] [id number] [address] [place] [address] May, Bipolar 1 disorder, mixed F3 1.60 [facility] [address] [id number] [address] [place] [address] May, Bipolar 1 disorder, mixed F3 1.60 [facility] [address] [id number] [address] [place] [address] May, [facility] [address] [id number] [address] [place] [address] May, Bipolar 1 disorder, mixed F3 1.60 [facility] [address] [facility] [id number] [address] [place] [address] May, Bipolar 1 disorder, mixed F3 1.60 [facility] [address] [facility] [id number] [address] [place] [address] May, [facility] [address] [facility] [id number] [address] [place] [address] May, [facility] [address] [facility] [id number] [address] [place] [address] May, [facility] [address] [facility] [id number] [address] [place] [address] May, Abdominal pain, unspecified location R10.9 [facility] [address] [facility] [id number] [address] [place] [address] May, [facility] [address] [facility] [id number] [address] [place] [address] Apr, Hematuria R31.9 ; Ataxia R27 .0 and Hearing loss, unspecified laterality H91.90 [facility] [address] [facility] [id number] [address] [place] [address] Apr, Bipolar 1 disorder, mixed F3 1.60 [facility] [address] [facility] [id number] [address] [place] [id number] Apr, Acute effusion of both middl e ears H65.193 [place] [address] [address] Apr, Hematuria R31.9 and Pyelonep hritis N12 [place] [address] [address] [place] [id number] [address] [place] [id number] Apr, [place] [address] [id number] Mar, Bipolar 1 disorder, mixed F3 1.60 [place] [address] [address] Mar, [place] [address] [address] [place] [id number] Mar, Bipolar 1 disorder, mixed F3 1.60 [place] [address] [address] Mar, Bipolar 1 disorder, mixed F3 1.60 [place] [address] [id number] Mar, Encounter for immunization Z 23 and Gastritis without bleeding, unspecified chronicity, unspecified gastritis type K29.70 [place] [address] [address] Mar, Bipolar 1 disorder, mixed F3 1.60 and Grief F43.20 [place] [address] [address] Mar, Gastritis without bleeding, unspecified chronicity, unspecified gastritis type K29.70 [place] [address] [address] Mar, Bipolar 1 disorder, mixed F3 1.60 [place] [address] [address] [place] [id number] [address] [place] [id number] Mar, Gastritis without bleeding, unspecified chronicity, unspecified gastritis type K29.70 [place] [address] [address] [place] [id number] [address] [place] [id number] Mar, [facility] [id number] [place], [place] [id number] 27 Feb, 2016 Bipolar 1 disorder, mixed F3 1.60 [place] [address] [address] [place] [id number] [address] [place] [id number] 22 Feb, 2016 Bipolar 1 disorder, mixed F3 1.60 and Grief F43.20 [facility] [address] [place] [id number] [address] [place] [id number] 22 Feb, 2016 Gastritis without bleeding, unspecified chronicity, unspecified gastritis type K29.70 [place] [address] [address] [place] [id number] [address] [place] [id number] 14 Feb, 2016 Bipolar 1 disorder, mixed F3 1.60 [facility] [address] [place] [id number] [address] [place] [id number] 09 Feb, 2016 Gastroesophageal reflux dise ase, esophagitis presence not specified K21.9 [place] [address] [address] [place] [id number] [address] [place] [address] Jan, Bipolar 1 disorder, mixed F3 1.60 [place] [address] [address] [place] [id number] [address] [place] [id number] Jan, Bipolar 1 disorder, mixed F3 1.60 and Unsteady gait R26.81 [place] [id number] [place] [id number] Jan, Bipolar 1 disorder, mixed F3 1.60 [place] [address] [address] [place] [id number] [address] [place] [id number] Jan, Bipolar 1 disorder, mixed F3 1.60 and Other ocean transportation intermediary (current) drug therapy Z79.899 [place] [address] [place] [id number] [address] [place] [address] Jan, Bipolar 1 disorder, mixed F3 1.60 [place] [address] [place] [id number] [address] [place], [place] [address] Jan, Bipolar 1 disorder, mixed F3 1.60 [place] [address] [address] [id number] [address] [place] [address] Jan, Bipolar 1 disorder, mixed F3 1.60 ; Grief F43.20 and Other ocean transportation intermediary (current) drug therapy Z79.899 [place] [id number] [place] [address] Jan, Bipolar 1 disorder, mixed F3 1.60 [place] [address] [place] [id number] [address] [place] [address] Dec, [place] [address] [address] Dec, Bipolar 1 disorder, mixed F3 1.60 ; Vitamin D deficiency, unspecified E55.9 ; H/O allergic rhinitis Z87.09 ; Other chronic pain G89.29 and Dorsalgia, unspecified M54.9 [place] [address] [place] [id number] [address] [place] [address] Dec, [place] [address] [address] Dec, Bipolar 1 disorder, mixed F3 1.60 [place] [address] [place] [id number] [address] [place] [address] Dec, Major depressive disorder, r ecurrent episode, moderate F33.1 [place] [address] [place] [id number] [address] [place] [address] Dec, Major depressive disorder, r ecurrent episode, moderate F33.1 [place] [address] [place] [id number] [address] [place] [address] Nov, [place] [address] [place] [id number] [address] [place] [address] Nov, Bipolar 1 disorder, mixed F3 1.60 [place] [address] [place] [id number] [address] [place] [address] Nov, Major depressive disorder, r ecurrent episode, moderate F33.1 [facility] [address] [id number] [address] [place] [address] Nov, Cervicalgia M54.2 ; Arthralg ia of hip, unspecified laterality M25.559 ; Allergic rhinitis J30.9 and Hormone replacement therapy Z79.890 [facility] [address] [id number] [address] [place] [address] Nov, Other seasonal allergic rhin itis J30.2 [facility] [address] [id number] [address] [place] [address] October, Major depressive disorder, r ecurrent episode, moderate F33.1 [facility] [address] [facility] [id number] [address] [place] [address] October, Major depressive disorder, r ecurrent episode, moderate F33.1 and Arthralgia of hip, unspecified laterality M25.559 [facility] [address] [id number] [address] [place] [address] October, Grief F43.20 ; Hypertension I10 ; Hyperlipidemia, unspecified hyperlipidemia type E78.5 ; Other chronic pain G89.29 and Allergic rhinitis, unspecified allergic rhinitis type J30.9 [facility] [address] [facility] [id number] [address] [place] [address] October, Major depressive disorder, r ecurrent episode, moderate F33.1 [place] [address] [id number] [address] [place] [address] Sep, Major depressive disorder, r ecurrent episode, moderate F33.1 [place] [address] [facility] [id number] [address] [place] [address] Sep, [place] [address] [facility] [id number] [address] [place] [address] Sep, Major depressive disorder, r ecurrent episode, moderate F33.1 [place] [address] [address] 05 Sep, 2015 Grief F43.20 [place] [address] [address] Aug, Major depressive disorder, r ecurrent episode, moderate F33.1 [place] [address] [address] Aug, Bipolar 1 disorder, mixed F3 1.60 [place] [address] [address] Aug, Allergic rhinitis J30.9 ; Ce rvicalgia M54.2 and Low back pain M54.5 [place] [address] [address] Aug, Major depressive disorder, r ecurrent episode, moderate F33.1 [facility] [address] [address] Aug, Sinusitis J32.9 and Tobacco 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 [place] [address] [address] Aug, [place] [address] [address] Aug, Depressive disorder, not els ewhere classified F32.9 ; Hormone replacement therapy Z79.[address] scan, head R93.0 [place] [address] [address] Aug, Major depressive disorder, r ecurrent episode, moderate F33.1 [place] [address] [address] Jul, Major depressive disorder, r ecurrent episode, moderate F33.1 [place] [address] [address] Jul, Abdominal pain R10.9 and Hyp ertension I10 [place] [address] [place] [id number] [address] [place] [address] 08 Jul, 2015 [facility] [address] [id number] [address] [place] [address] Jul, Major depressive disorder, r ecurrent episode, moderate F33.1 [facility] [address] [address] [id number] [address] [place] [address] Jul, [facility] [address] [facility] [id number] [address] [place] [address] Jul, [facility] [address] [place] [address] [id number] [address] [place] [address] Jun, [facility] [address] [id number] [address] [place] [address] Jun, Depressive disorder, not els ewhere classified F32.9 [facility] [address] [place] [id number] [address] [place] [address] Jun, [facility] [address] [address] [id number] [address] [place] [address] Jun, [facility] [address] [place] [id number] [address] [place] [address] Jun, Arthralgia of hip, unspecifi ed laterality M25.559 ; Bruising, spontaneous R23.3 and Night sweats R61 [facility] [address] [id number] [address] [place] [address] Jun, [facility] [address] [address] [id number] [address] [place] [address] Jun, [facility] [address] [address] [id number] [address] [place] [address] May, [facility] [address] [id number] [address] [place] [address] May, Myalgia M79.1 and Screening, lipid Z13.220 [facility] [address] [place] [id number] [address] [place] [address] Apr, Status post cervical spinal fusion Z98.1 ; Fibromyalgia M79.7 and Unsteady gait R26.81 [facility] [address] [id number] [address] [place] [address] Nov, [facility] [address] [id number] [address] [place] [address] Nov, [facility] [address] [id number] [address] [place] [address] October, [facility] [address] [id number] [address] [place] [address] October, [facility] [address] [id number] [address] [place] [address] October, [facility] [address] [facility] [id number] [address] [place] [address] October, [facility] [address] [facility] [id number] [address] [place] [address] October, [facility] [address] [facility] [id number] [address] [place] [address] October, Dysuria 788.1 ; Nausea 787.0 2 and Urinary tract infection 599.0 [facility] [address] [facility] [id number] [address] [place] [address] Sep, [facility] [address] [id number] [address] [place] [address] Sep, [facility] [address] [id number] [address] [place] [address] Aug, [facility] [address] [id number] [address] [place] [address] Aug, [facility] [address] [id number] [address] [place] [address] Aug, [facility] [address] [id number] [address] [place] [address] 24 Aug, 2014 [facility] [address] [id number] [facility] [place] [address] 23 Aug, 2014 [facility] [address] [id number] [facility] [place] [address] 19 Aug, 2014 [facility] [address] [id number] [address] [place] [address], [place] [address] 19 Aug, 2014 [facility] [address] [id number] [address] [place] [address], [place] [address] 19 Aug, 2014 [facility] [address] [id number] [address] [place] [address], [place] [address] 19 Aug, 2014 [facility] [address] [id number] [address] [place] [address], [place] [address] 18 Aug, 2014 [facility] [address] [id number] [address] [place] [address], [place] [address] 18 Aug, 2014 [facility] [address] [id number] [address] [place] [address], [place] [address] 13 Aug, 2014 [facility] [address] [id number] [address] [place] [address], [place] [address] 13 Aug, 2014 [facility] [address] [id number] [address] [place] [address], [place] [address] 11 Aug, 2014 [facility] [address] [id number] [address] [place] [address], [place] [address] Aug, [facility] [address] [id number] [address] [place] [address], [place] [address] 06 Aug, 2014 [facility] [address] [id number] [address] [place] [address], [place] [address] 06 Aug, 2014 [facility] [address] [id number] [address] [place] [address], [place] [address] 05 Aug, 2014 [facility] [address] [id number] [address] [place] [address], [place] [address] 05 Aug, 2014 [facility] [address] [id number] [address] [place] [address], [place] [address] Aug, [facility] [address] [id number] [address] [place] [address], [place] [address] Aug, [facility] [address] [id number] [address] [place] [address], [place] [address] Aug, [facility] [address] [id number] [address] [place] [address], [place] [address] Jul, 2014 [facility] [address] [id number] [address] [place] [address], [place] [address] Jul, 2014 [facility] [address] [id number] [address] [place] [address], [place] [address] Jul, 2014 [facility] [address] [id number] [address] [place] [address], [place] [address] Jul, 2014 [facility] [address] [id number] [address] [place] [address], [place] [address] Jul, 2014 [facility] [address] [id number] [address] [place] [address], [place] [address] Jul, [facility] [address] [id number] [address] [place] [address], [place] [address] Jul, 2014 [facility] [address] [id number] [address] [place] [address], [place] [address] Jul, 2014 [facility] [address] [id number] [address] [place] [address] Jul, 2014 [facility] [address] [id number] [address] [place] [address], [place] [address] Jul, 2014 [facility] [address] [id number] [address] [place] [address], [place] [address] Jul, 2014 [facility] [address] [id number] [address] [place] [address] Jul, 2014 [facility] [address] [id number] [address] [place] [address] Jul, [facility] [address] [id number] [address] [place] [address], [place] [address] Jul, [facility] [address] [id number] [address] [place] [address], [place] [address] Jun, [facility] [address] [id number] [address] [place] [address], [place] [address] Jun, [facility] [address] [id number] [address] [place] [address], [place] [address] Jun, [facility] [address] [id number] [address] [place] [address], [place] [address] Jun, [facility] [address] [id number] [address] [place] [address], [place] [address] Jun, [facility] [address] [id number] [address] [place] [address], [place] [address] Jun, [facility] [address] [id number] [address] [place] [address], [place] [address] May, [facility] [address] [id number] [address] [place] [address], [place] [address] May, [facility] [address] [id number] [address] [place] [address], [place] [address] May, [facility] [address] [id number] [address] [place] [address], [place] [address] May, [facility] [address] [id number] [address] [place] [address], [place] [address] May, [facility] [address] [id number] [address] [place] [address], [place] [address] May, [facility] [address] [id number] [address] [place] [address], [place] [address] Apr, [facility] [address] [id number] [address] [place] [address], [place] [address] Apr, [facility] [address] [id number] [address] [place] [address], [place] [address] Apr, [facility] [address] [id number] [address] [place] [address], [place] [address] Apr, [facility] [address] [id number] [address] [place] [address], [place] [address] Apr, [facility] [address] [id number] [address] [place] [address], [place] [address] Apr, [facility] [address] [id number] [address] [place] [address], [place] [address] Mar, [facility] [address] [id number] [address] [place] [address], [place] [address] Mar, [facility] [address] [id number] [address] [place] [address], [place] [address] Mar, [facility] [address] [id number] [address] [place] [address], [place] [address] Mar, [facility] [address] [id number] [address] [place] [address], [place] [address] Mar, [facility] [address] [id number] [address] [place] [address], [place] [address] Mar, [facility] [address] [id number] [address] [place] [address], [place] [address] Mar, [facility] [address] [id number] [address] [place] [address], [place] [address] Mar, [facility] [address] [id number] [address] [place] [address], [place] [address] Mar, [facility] [address] [id number] [address] [place] [address], [place] [address] Mar, [facility] [address] [id number] [address] [place] [address], [place] [address] Mar, [facility] [address] [id number] [address] [place] [address], [place] [address] Mar, [facility] [address] [id number] [address] [place] [address], [place] [address] 30 Feb, 2014 [facility] [address] [id number] [address] [place] [address], [place] [address] Feb, [facility] [address] [id number] [address] [place] [address], [place] [address] Feb, [facility] [address] [id number] [address] [place] [address], [place] [address] Feb, [facility] [address] [id number] [address] [place] [address], [place] [address] Feb, [facility] [address] [id number] [address] [place] [address], [place] [address] Feb, [facility] [address] [id number] [address] [place] [address], [place] [address] Feb, [facility] [address] [id number] [address] [place] [address], [place] [address] Jan, [facility] [address] [id number] [address] [place] [address], [place] [address] Jan, [facility] [address] [id number] [address] [place] [address], [place] [address] Jan, [facility] [address] [id number] [address] [place] [address], [place] [address] Dec, [facility] [address] [id number] [address] [place] [address], [place] [address] Dec, [facility] [address] [id number] [address] [place] [address], [place] [address] Dec, [facility] [address] [id number] [address] [place] [address], [place] [address] Dec, [facility] [address] [id number] [address] [place] [address], [place] [address] Sep, [facility] [address] [id number] [address] [place] [address], [place] [address] Sep, [facility] [address] [id number] [address] [place] [address], [place] [address] Sep, [facility] [address] [id number] [address] [place] [address], [place] [address] Sep, [facility] [address] [id number] [address] [place] [address], [place] [address] Sep, [facility] [address] [id number] [address] [place] [address], [place] [address] Sep, [facility] [address] [id number] [address] [place] [address], [place] [address] Sep, [facility] [address] [id number] [address] [place] [address], [place] [address] Sep, [facility] [address] [id number] [address] [place] [address], [place] [address] Aug, [facility] [address] [id number] [address] [place] [address], [place] [address] Aug, [facility] [address] [id number] [address] [place] [address], [place] [address] May, [facility] [address] [id number] [address] [place] [address], [place] [address] May, [facility] [address] [id number] [address] [place] [address], [place] [address] Apr, [facility] [address] [id number] [address] [place] [address], [place] [address] Apr, [facility] [address] [id number] [address] [place] [address], [place] [address] Apr, [facility] [address] [id number] [address] [place] [address], [place] [address] Apr, [facility] [address] [id number] [address] [place] [address], [place] [address] Apr, [facility] [address] [id number] [address] [place] [address], [place] [address] Apr, [facility] [address] [id number] [address] [place] [address], [place] [address] 18 May, 2012 [facility] [address] [id number] [address] [place] [address], [place] [address] 18 May, 2012 [facility] [address] [id number] [address] [place] [address], [place] [address] 15 May, 2012 [facility] [address] [id number] [address] [place] [address], [place] [address] 15 May, 2012 [facility] [address] [id number] [address] [place] [address], [place] [address] 13 May, 2012 [facility] [address] [id number] [address] [place] [address], [place] [address] 13 May, 2012 [facility] [address] [id number] [address] [place] [address], [place] [address] 13 Apr, 2012 [facility] [address] [id number] [address] [place] [address], [place] [address] 13 Apr, 2012 [facility] [address] [id number] [address] [place] [address], [place] [address] Apr, [facility] [address] [id number] [address] [place] [address], [place] [address] Apr, [facility] [address] [id number] [address] [place] [address], [place] [address] Apr, [facility] [address] [id number] [address] [place] [address], [place] [address] Apr, [facility] [address] [id number] [address] [place] [address], [place] [address] Apr, [facility] [address] [id number] [address] [place] [address], [place] [address] 07 Apr, 2012 [facility] [address] [id number] [address] [place] [address], [place] [address] Apr, [facility] [address] [id number] [address] [place] [address], [place] [address] Apr, [facility] [address] [id number] [address] [place] [address], [place] [address] Mar, [facility] [address] [id number] [address] [place] [address], [place] [address] Mar, [facility] [address] [id number] [address] [place] [address], [place] [address] Mar, [facility] [address] [id number] [address] [place] [address], [place] [address] Mar, [facility] [address] [id number] [address] [place] [address], [place] [address] Mar, [facility] [address] [id number] [address] [place] [address], [place] [address] Mar, [facility] [address] [id number] [address] [place] [address], [place] [address] Mar, [facility] [address] [id number] [address] [place] [address], [place] [address] Mar, [facility] [address] [id number] [address] [place] [address], [place] [address] Mar, [facility] [address] [id number] [address] [place] [address], [place] [address] 25 Feb, 2012 [facility] [address] [id number] [address] [place] [id number] 16 Feb, 2012 [facility] [address] [id number] [address] [place] [address], [place] [address] 11 Feb, 2012 [facility] [address] [id number] [address] [place] [address], [place] [address] Jan, [facility] [address] [id number] [address] [place] [address], [place] [address] Jan, [facility] [address] [id number] [address] [place] [address], [place] [id number] 20 Jan, 2012 [facility] [address] [id number] [address] [place] [address], [place] [address] 18 Jan, 2012 [facility] [address] [id number] [address] [place] [address], [place] [address] Jan, [facility] [address] [id number] [address] [place] [address], [place] [address] Jan, [facility] [address] [id number] [address] [place] [address], [place] [id number] 16 Jan, 2012 [facility] [address] [id number] [address] [place] [address], [place] [address] Jan, [facility] [address] [id number] [address] [place] [address], [place] [address] Jan, [facility] [address] [id number] [address] [place] [address], [place] [address] Jan, [facility] [address] [id number] [address] [place] [address], [place] [address] Dec, [facility] [address] [id number] [address] [place] [address], [place] [address] Dec, [facility] [address] [id number] [address] [place] [address], [place] [address] Dec, [facility] [address] [id number] [address] [place] [address], [place] [address] Dec, [facility] [address] [id number] [address] [place] [address], [place] [address] Nov, [facility] [address] [id number] [address] [place] [address], [place] [address] Nov, [facility] [address] [id number] [address] [place] [address], [place] [address] Nov, [facility] [address] [id number] [address] [place] [address], [place] [address] October, [facility] [address] [id number] [address] [place] [id number] October, [facility] [address] [id number] [address] [place] [id number] October, [facility] [address] [id number] [address] [place] [id number] October, [facility] [address] [id number] [address] [place] [id number] October, [facility] [address] [id number] [address] [place] [id number] October, [facility] [address] [id number] [address] [place] [id number] Aug, [facility] [address] [id number] [address] [place] [id number] Mar, [facility] [address] [id number] [address] [place] [id number] Nov, [facility] [address] [id number] [address] [place] [id number] May, [facility] [address] [id number] [address] [place] [id number] May, [facility] [address] [id number] [address] [place] [id number] Apr, [facility] [address] [id number] [address] [place] [id number] Mar, [facility] [address] [id number] [address] [place] [id number] Mar, IMMUNIZATIONS No Known Immunizations SOCIAL HISTORY Never Assessed REASON FOR VISIT PLAN OF CARE VITAL SIGNS Height 64 in 2014-05-08 Weight 157 lbs 2014-05-08 Temperature 98.8 degrees Fahrenheit 2014-05-08 Heart Rate 78 bpm 2014-05-08 Respiratory Rate 18 2014-05-08 Blood pressure systolic 118 mmHg 2014-05-08 Blood pressure diastolic 78 mmHg 2014-05-08 MEDICATIONS Unknown Medications RESULTS No Results PROCEDURES [...]
--- OUTSIDE RECORDS SUMMARY | 2020-02-02 19:39 | XMS REPORT ---
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 Outside Name Role Phone Migration, Doctor Unavailable Unavailable PROBLEMS Type Condition ICD9-CM Code [id number] Code Onset Dates Condition S tatus SNOMED Code Problem Night sweats R61 Active 0498649 0 Problem Hypertension I10 Active 8718147 3 Problem Arthralgia of hip, unspecified laterality M25.559 Active 92409870 Problem Other chronic pain G89.29 Active 8 5854002 Problem Grief F43.20 Active 64229782 Problem Gastritis without bleeding, unspecified chronicity, unspecified gastritis type K29.70 Active 030062817 Problem Hyperlipidemia, unspecified hyperlipidemia type E7 8.5 Active 72225238 Problem Acute left-sided low back pain with left-sided sciatica M54.42 Active 375569776 Problem Abnormal CT scan, head R93.0 Active 125593745 Problem Bladder spasm N32.89 Active 334760 006 Problem Age-related osteoporosis without current pathological fracture M81.0 Active 50489895 Problem Bruising, spontaneous R23.3 Active 367766100 Problem Sensorineural hearing loss (SNHL) of both ears H90 .3 Active 939293186 Problem History of colon polyps Z86.010 Active 400841859 Problem Allergic rhinitis J30.9 Active 61 116275 Problem Hematuria, unspecified type R31.9 Ac tive 38665792 Problem Generalized anxiety disorder F41.1 A ctive 04014606 Problem Imbalance R26.89 Active 064230960 Problem Hammer toe of right foot M20.41 Activ e 913009229 Problem Fibromyalgia M79.7 Active 0917689 7 Problem Hormone replacement therapy Z79.890 Ac tive 222145752 Problem Major depressive disorder, recurrent episode, moderate F33.1 Active 314669832 Problem Sciatica of left side M54.32 Active 90805793 Problem Plantar wart of right foot B07.0 Act mitchell [id number] Problem Slow transit constipation K59.01 Acti ve 25102364 Problem Osteoporotic compression fracture of spine with delayed healing M80.88XG Active 52548282 Problem Ataxia R27.0 Active 50622685 Problem Age-related osteoporosis wit h current pathological fracture with delayed healing, subsequent encounter M80.00XG Active 968138130 Problem Bipolar 1 disorder, mixed F31.60 Acti ve 51085021 Problem Hearing loss, unspecified laterality H91.90 Active 63723597 Problem Tobacco use disorder F17.200 Active 010583208 Problem Post menopausal syndrome N95.1 Activ e 985002609 Problem Sciatica of right side M54.31 Active 03890517 Problem Hearing loss, unspecified hearing loss type, uns pecified laterality H91.90 Active 70871031 ALLERGIES No Information ENCOUNTERS Encounter Location Date Diagnosis [facility] [address] [place] [address] Dec, [facility] [address] [address] October, [facility] [address] [place] [address] October, Gum lesion K06.8 [facility] [address] [place] [id number] [place] [address] Sep, [facility] [address] [place] [id number] [place], [place] [address] Sep, Age-related osteoporosis wit h current pathological fracture with delayed healing, subsequent encounter M80.00XG and Sore in mouth K13.79 [facility] [address] [place] [id number] [place] [address] Sep, [facility] [address] [place] [id number] [place] [address] Sep, Bipolar 1 disorder, mixed F3 1.60 [facility] [address] [place] [id number] [place] [address] 15 Sep, 2019 Compression fracture of L1 v ertebra, sequela S32.010S ; Tobacco use disorder F17.200 ; Age-related osteoporosis with current pathological fracture with routine healing, subsequent encounter M80.00XD ; Allergic rhinitis J30.9 ; Generalized anxiety disorder F41.1 and Recurrent UTI N39.0 [facility] [address] [place] [address] 14 Sep, 2019 Bipolar 1 disorder, mixed F3 1.60 ; Generalized anxiety disorder F41.1 and Tobacco use disorder F17.200 [facility] [address] [place] [address] 13 Sep, 2019 [facility] [address] [place] [id number] [place] [address] 08 Sep, 2019 Bipolar 1 disorder, mixed F3 1.60 [facility] [address] [address] 23 Aug, 2019 [facility] [address] [address] 23 Aug, 2019 Yeast vaginitis B37.3 [facility] [address] [id number] [place] [address] 14 Aug, 2019 Vaginal discharge N89.8 [facility] [address] [address] 10 Aug, 2019 Bipolar 1 disorder, mixed F3 1.60 [facility] [address] [place] [id number] [place] [address] 04 Aug, 2019 Age-related osteoporosis wit h current pathological fracture with routine healing, subsequent encounter M80.00XD [facility] [address] [address] 24 Jul, 2019 Age-related osteoporosis wit h current pathological fracture with routine healing, subsequent encounter M80.00XD [facility] [address] [address] 24 Jul, 2019 Osteoporotic compression fra cture of spine with delayed healing M80.88XG and Tobacco use disorder F17.200 [facility] [address] [address] 11 Jul, 2019 Bipolar 1 disorder, mixed F3 1.60 [facility] [address] [facility] [id number] [address] [place] [address] 07 Jul, 2019 [facility] [address] [facility] [id number] [address] [place] [address] 03 Jul, 2019 Tobacco use disorder F17.200 [facility] [address] [place] [id number] [place] [address] 15 Jun, 2019 Bipolar 1 disorder, mixed F3 1.60 [facility] [address] [facility] [id number] [address] [place] [address] 07 Jun, 2019 Bipolar 1 disorder, mixed F3 1.60 ; Generalized anxiety disorder F41.1 and Tobacco use disorder F17.200 [facility] [address] [facility] [id number] [address] [place] [address] 06 Jun, 2019 Tobacco use disorder F17.200 [facility] [address] [place] [id number] [place] [address] May, [facility] [address] [place] [id number] [place] [address] May, Compression fracture of L1 v ertebra with routine healing, subsequent encounter S32.010D [facility] [address] [facility] [id number] [address] [place] [address] May, [facility] [address] [place] [id number] [place] [address] May, [facility] [address] [facility] [id number] [address] [place] [address] May, [facility] [address] [place] [id number] [place] [address] May, [facility] [address] [facility] [id number] [address] [place] [address] May, [facility] [address] [place] [id number] [place] [address] May, [facility] [address] [address] May, [place] [address] [address] May, Bipolar 1 disorder, mixed F3 1.60 [place] [address] [address] May, Closed fracture of right upp er extremity with routine healing, subsequent encounter S42.301D and Hearing loss, unspecified hearing loss type, unspecified laterality H91.90 [place] [address] [address] May, [place] [address] [address] Apr, Allergic rhinitis J30.9 ; Ab dominal pain, unspecified location R10.9 and Seborrheic keratosis L82.1 [place] [address] [address] Mar, Bipolar 1 disorder, mixed F3 1.60 [place] [address] [address] Mar, Bipolar 1 disorder, mixed F3 1.60 ; Generalized anxiety disorder F41.1 and Tobacco use disorder F17.200 [place] [address] [address] Feb, Excessive gas R14.3 ; Other chronic pain G89.29 ; Encounter for immunization Z23 ; Hyperlipidemia, unspecified hyperlipidemia type E78.5 ; Bipolar 1 disorder, mixed F31.60 and Other custodial (current) drug therapy Z79.899 [place] [address] [address] Feb, Bipolar 1 disorder, mixed F3 1.60 [place] [address] [address] Jan, Sciatica of right side M54.3 1 ; Low back pain M54.5 and Major depressive disorder, recurrent episode, moderate F33.1 [facility] [address] [id number] [address] [place] [address] Jan, Bipolar 1 disorder, mixed F3 1.60 [facility] [address] [facility] [id number] [address] [place] [address] Dec, Normal pelvic exam Z01.419 [facility] [address] [id number] [address] [place] [address] Dec, Bipolar 1 disorder, mixed F3 1.60 [facility] [address] [id number] [address] [place] [address] Nov, Bipolar 1 disorder, mixed F3 1.60 [facility] [address] [facility] [id number] [address] [place] [address] Nov, Bipolar 1 disorder, mixed F3 1.60 ; Generalized anxiety disorder F41.1 ; Tobacco use disorder F17.200 and Other custodial (current) drug therapy Z79.899 [facility] [address] [id number] [address] [place] [address] Nov, [facility] [address] [facility] [id number] [address] [place] [address] Nov, Bipolar 1 disorder, mixed F3 1.60 [facility] [address] [id number] [address] [place] [address] October, Bipolar 1 disorder, mixed F3 1.60 [facility] [address] [id number] [address] [place] [address] October, Bipolar 1 disorder, mixed F3 1.60 [facility] [address] [facility] [id number] [address] [place] [address] October, [facility] [address] [facility] [id number] [address] [place] [address] October, Bipolar 1 disorder, mixed F3 1.60 ; Generalized anxiety disorder F41.1 and Tobacco use disorder F17.200 [facility] [address] [facility] [id number] [address] [place] [address] Sep, [place] [address] [place] [id number] [place] [address] 24 Sep, 2018 Encounter for Medicare annua l wellness exam Z00.00 ; Major depressive disorder, recurrent episode, moderate F33.1 ; Allergic rhinitis J30.9 ; Bipolar 1 disorder, mixed F31.60 ; Fibromyalgia M79.7 ; Hyperlipidemia, unspecified hyperlipidemia type E78.5 ; Hormone replacement therapy Z79.890 ; Encounter for screening for lung cancer Z12.2 and Tobacco use disorder F17.200 [place] [address] [facility] [id number] [address] [place] [address] Sep, Bipolar 1 disorder, mixed F3 1.60 [place] [address] [address] Sep, Other chronic pain G89.29 ; Hyperlipidemia, unspecified hyperlipidemia type E78.5 ; Breast cancer screening Z12.31 and Post menopausal syndrome N95.1 [place] [address] [place] [id number] [place] [address] 16 Sep, 2018 Bipolar 1 disorder, mixed F3 1.60 [place] [address] [place] [id number] [place] [address] 15 Sep, 2018 Bipolar 1 disorder, mixed F3 1.60 ; Generalized anxiety disorder F41.1 and Tobacco use disorder F17.200 [place] [address] [place] [id number] [place] [address] Sep, Gastritis without bleeding, unspecified chronicity, unspecified gastritis type K29.70 [place] [address] [place] [id number] [place] [address] Sep, Exercise counseling Z71.82 [place] [address] [place] [id number] [place] [address] Aug, Exercise counseling Z71.82 [place] [address] [place], [place] [address] Aug, Bipolar 1 disorder, mixed F3 1.60 [place] [address] [place] [address] Aug, Exercise counseling Z71.82 [place] [address] [address] Aug, Bipolar 1 disorder, mixed F3 1.60 [place] [address] [address] Aug, Gastritis without bleeding, unspecified chronicity, unspecified gastritis type K29.70 ; Tobacco abuse Z72.0 ; Generalized anxiety disorder F41.1 and Weight gain R63.5 [place] [address] [address] Aug, Bipolar 1 disorder, mixed F3 1.60 ; Generalized anxiety disorder F41.1 and Tobacco use disorder F17.200 [place] [address] [address] Jul, Bipolar 1 disorder, mixed F3 1.60 [place] [address] [address] Jul, [place] [address] [address] Jul, Bipolar 1 disorder, mixed F3 1.60 [place] [address] [address] Jul, Allergic rhinitis J30.9 ; Ma darion depressive disorder, recurrent episode, moderate F33.1 and Tobacco 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 [place] [address] [place] [address] Jun, [place] [address] [address] Jun, [place] [address] [address] Jun, Bipolar 1 disorder, mixed F3 1.60 [facility] [address] [facility] [id number] [address] [place] [address] Jun, Bipolar 1 disorder, mixed F3 1.60 [facility] [address] [facility] [id number] [address] [place] [address] Jun, Bipolar 1 disorder, mixed F3 1.60 [facility] [address] [facility] [id number] [address] [place] [address] Jun, Generalized anxiety disorder F41.1 ; Tobacco abuse Z72.0 and Major depressive disorder, recurrent episode, moderate F33.1 [place] [address] [facility] [id number] [address] [place] [address] May, Bipolar 1 disorder, mixed F3 1.60 [place] [address] [place] [id number] [place] [address] May, Bipolar 1 disorder, mixed F3 1.60 and Generalized anxiety disorder F41.1 [place] [address] [facility] [id number] [address] [place] [address] May, Bipolar 1 disorder, mixed F3 1.60 [place] [address] [place] [id number] [place] [address] May, Allergic rhinitis J30.9 [place] [id number] [facility] [id number] [address] [place] [address] May, Bipolar 1 disorder, mixed F3 1.60 [place] [id number] [facility] [id number] [address] [place] [address] May, [place] [address] [facility] [id number] [address] [place] [address] Apr, Allergic rhinitis J30.9 ; Dy sfunction of both eustachian tubes H69.83 ; History of bladder surgery Z98.890 and Cervicalgia M54.2 [facility] [address] [facility] [id number] [address] [place] [address] Mar, Bipolar 1 disorder, mixed F3 1.60 [facility] [address] [facility] [id number] [address] [place] [address] Mar, [facility] [address] [facility] [id number] [address] [place] [address] Mar, Slow transit constipation K5 9.01 ; Encounter for immunization Z23 and Generalized anxiety disorder F41.1 [facility] [address] [facility] [id number] [address] [place] [address] 27 Feb, 2018 Bipolar 1 disorder, mixed F3 1.60 [facility] [address] [facility] [id number] [address] [place] [address] Feb, Allergic rhinitis J30.9 [facility] [address] [facility] [id number] [address] [place] [address] 24 Feb, 2018 Bipolar 1 disorder, mixed F3 1.60 [place] [address] [place] [id number] [place] [address] Feb, Bipolar 1 disorder, mixed F3 1.60 and Generalized anxiety disorder F41.1 [facility] [address] [facility] [id number] [address] [place] [address] 13 Feb, 2018 Bipolar 1 disorder, mixed F3 1.60 [facility] [address] [facility] [id number] [address] [place] [address] 11 Feb, 2018 Allergic rhinitis J30.9 [facility] [address] [facility] [id number] [address] [place] [address] Feb, [facility] [address] [facility] [id number] [address] [place] [address] Jan, Bipolar 1 disorder, mixed F3 1.60 [facility] [address] [place] [id number] [place] [address] Jan, Low back pain M54.5 ; Hyperl ipidemia, unspecified hyperlipidemia type E78.5 and Bipolar 1 disorder, mixed F31.60 [facility] [address] [place] [id number] [place] [address] Jan, Bipolar 1 disorder, mixed F3 1.60 [facility] [address] [facility] [id number] [address] [place] [address] Jan, Bipolar 1 disorder, mixed F3 1.60 [facility] [address] [facility] [id number] [address] [place] [address] Jan, Bipolar 1 disorder, mixed F3 1.60 [facility] [address] [facility] [id number] [address] [place] [address] Jan, Bipolar 1 disorder, mixed F3 1.60 [facility] [address] [facility] [id number] [address] [place] [address] Dec, Bipolar 1 disorder, mixed F3 1.60 ; Generalized anxiety disorder F41.1 and Other custodial (current) drug therapy Z79.899 [facility] [address] [facility] [id number] [address] [place] [address] Dec, 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 [facility] [address] [facility] [id number] [address] [place] [address] Dec, Bipolar 1 disorder, mixed F3 1.60 [facility] [address] [facility] [id number] [address] [place] [address] Dec, Bipolar 1 disorder, mixed F3 1.60 [facility] [address] [facility] [id number] [address] [place] [address] Nov, Bipolar 1 disorder, mixed F3 1.60 [facility] [address] [facility] [id number] [address] [place] [address] Nov, Bipolar 1 disorder, mixed F3 1.60 [facility] [address] [facility] [id number] [address] [place] [address] Nov, Bipolar 1 disorder, mixed F3 1.60 [facility] [address] [facility] [id number] [address] [place] [address] Nov, Allergic rhinitis J30.9 [facility] [id number] [place] [address] Nov, Allergic rhinitis J30.9 [facility] [address] [address] Nov, [facility] [address] [place] [id number] [place] [address] Nov, Bipolar 1 disorder, mixed F3 1.60 [place] [address] [address] Nov, Fibromyalgia M79.7 and Aller gic rhinitis J30.9 [place] [address] [address] October, Bipolar 1 disorder, mixed F3 1.60 [facility] [address] [address] October, Acute nasopharyngitis J00 [facility] [address] [address] October, Bitten or stung by nonvenomo us insect and other nonvenomous arthropods, initial encounter W57.XXXA and Insect bite (nonvenomous) of abdominal wall, initial encounter S30.861A [place] [address] [address] October, Insect bite (nonvenomous) of abdominal wall, initial encounter S30.861A ; Bitten or stung by nonvenomous insect and other nonvenomous arthropods, initial encounter W57.XXXA ; Allergic rhinitis J30.9 and Low back pain M54.5 [place] [address] [address] October, Bipolar 1 disorder, mixed F3 1.60 [facility] [address] [address] October, [facility] [address] [address] October, [facility] [address] [facility] [id number] [address] [place] [address] October, Bipolar 1 disorder, mixed F3 1.60 [facility] [address] [id number] [address] [place] [address] Sep, Bipolar 1 disorder, mixed F3 1.60 [facility] [address] [facility] [id number] [address] [place] [address] Sep, Other chronic pain G89.29 [facility] [address] [id number] [address] [place] [address] Sep, [facility] [address] [id number] [address] [place] [address] Sep, Bipolar 1 disorder, mixed F3 1.60 [facility] [address] [facility] [id number] [address] [place] [address] Sep, Allergic rhinitis J30.9 and Sciatica of left side M54.32 [facility] [address] [facility] [id number] [address] [place] [id number] Sep, Bipolar 1 disorder, mixed F3 1.60 [facility] [address] [facility] [id number] [address] [place] [id number] Sep, Bipolar 1 disorder, mixed F3 1.60 and Generalized anxiety disorder F41.1 [facility] [address] [facility] [id number] [address] [place] [id number] Aug, [facility] [address] [id number] [address] [place] [id number] Aug, Bipolar 1 disorder, mixed F3 1.60 [facility] [address] [facility] [id number] [address] [place] [id number] Aug, Bipolar 1 disorder, mixed F3 1.60 [facility] [address] [facility] [id number] [address] [place] [id number] Aug, [facility] [address] [place] [id number] [address] [place] [id number] Aug, Generalized anxiety disorder F41.1 [facility] [address] [id number] Aug, Bipolar 1 disorder, mixed F3 1.60 [facility] [address] [place] [id number] [address] [place] [id number] Aug, Plantar wart of right foot B 07.0 [facility] [id number] [place] [address] Aug, Bipolar 1 disorder, mixed F3 1.60 [facility] [address] [address] Jul, Bipolar 1 disorder, mixed F3 1.60 [facility] [address] [address] Jul, [facility] [address] [address] Jul, Bipolar 1 disorder, mixed F3 1.60 [facility] [address] [address] Jul, Generalized anxiety disorder F41.1 [facility] [id number] [place] [address] Jul, Bipolar 1 disorder, mixed F3 1.60 [facility] [id number] [place] [address] Jul, Acute left-sided low back pa in with left-sided sciatica M54.42 [facility] [id number] [place] [address] Jul, Coccydynia M53.3 [facility] [id number] [place] [address] Jun, Bipolar 1 disorder, mixed F3 1.60 [facility] [id number] [place] [address] Jun, Acute nasopharyngitis J00 [facility] [address] [address] Jun, Bipolar 1 disorder, mixed F3 1.60 [facility] [id number] [place] [address] Jun, Fibromyalgia M79.7 [facility] [address] [address] Jun, Bipolar 1 disorder, mixed F3 1.60 [place] [address] [address] Jun, Fibromyalgia M79.7 and Bipol ar 1 disorder, mixed F31.60 [place] [address] [address] May, Bipolar 1 disorder, mixed F3 1.60 ; Generalized anxiety disorder F41.1 and Other custodial (current) drug therapy Z79.899 [place] [id number] [address] May, Bipolar 1 disorder, mixed F3 1.60 [facility] [address] [address] 14 May, 2017 Cough R05 and Body aches R52 [facility] [address] [address] May, Bladder spasm N32.89 and Acu te cystitis without hematuria N30.00 [facility] [address] [address] 07 May, 2017 Bipolar 1 disorder, mixed F3 1.60 [facility] [address] [address] Apr, [facility] [id number] [place] [address] Apr, Major depressive disorder, r ecurrent episode, moderate F33.1 and Encounter for immunization Z23 [facility] [address] [place] [address] Apr, Bipolar 1 disorder, mixed F3 1.60 [facility] [id number] [place] [address] Apr, Bipolar 1 disorder, mixed F3 1.60 [facility] [address] [place] [address] Apr, Bipolar 1 disorder, mixed F3 1.60 [facility] [address] [place] [address] Apr, Yeast vaginitis B37.3 [place] [address] Apr, Bipolar 1 disorder, mixed F3 1.60 [facility] [address] [address] Apr, Cellulitis L03.[address] for immunization Z23 [place] [address] [address] Apr, Bipolar 1 disorder, mixed F3 1.60 [facility] [address] [address] Mar, Bipolar 1 disorder, mixed F3 1.60 [place] [address] [address] Mar, Bipolar 1 disorder, mixed F3 1.60 [place] [address] [address] Mar, Imbalance R26.89 [address] Encount er for immunization Z23 [facility] [id number] [place] [address] Mar, Generalized anxiety disorder F41.1 [place] [address] [address] Mar, Bipolar 1 disorder, mixed F3 1.60 [place] [address] [address] Mar, Generalized anxiety disorder F41.1 [place] [address] [address] Mar, Bipolar 1 disorder, mixed F3 1.60 [place] [address] [address] [address] Mar, Bipolar 1 disorder, mixed F3 1.60 [place] [address] [address] Feb, Bipolar 1 disorder, mixed F3 1.60 [place] [address] [address] Feb, Bipolar 1 disorder, mixed F3 1.60 and Generalized anxiety disorder F41.1 [place] [address] [address] Feb, Gastritis without bleeding, unspecified chronicity, unspecified gastritis type K29.70 ; Hammer toe of right foot M20.41 and Other viral warts B07.8 [place] [address] [address] Feb, Bipolar 1 disorder, mixed F3 1.60 [place] [address] [address] Feb, Bipolar 1 disorder, mixed F3 1.60 [place] [address] [address] 05 Feb, 2017 Bipolar 1 disorder, mixed F3 1.60 [place] [address] [address] Jan, Encounter for screening mamm ogram for breast cancer Z12.31 ; Other viral warts B07.8 and Allergic rhinitis J30.9 [place] [address] [address] Jan, Bipolar 1 disorder, mixed F3 1.60 [facility] [address] [facility] [id number] [address] [place] [address] Jan, Bipolar 1 disorder, mixed F3 1.60 [facility] [address] [facility] [id number] [address] [place] [address] Jan, [facility] [id number] [place] [address] Jan, Bipolar 1 disorder, mixed F3 1.60 [facility] [address] [facility] [id number] [address] [place] [address] Jan, Bipolar 1 disorder, mixed F3 1.60 [place] [id number] [place] [address] Jan, Allergic rhinitis J30.9 ; He maturia R31.9 and Colon cancer screening Z12.11 [place] [id number] [place] [address] Dec, Bipolar 1 disorder, mixed F3 1.60 [place] [id number] [place] [address] Dec, Bipolar 1 disorder, mixed F3 1.60 ; Generalized anxiety disorder F41.1 and Other custodial (current) drug therapy Z79.899 [place] [id number] [place] [address] Dec, Bipolar 1 disorder, mixed F3 1.60 [place] [id number] [place] [address] Dec, Bipolar 1 disorder, mixed F3 1.60 [place] [id number] [place] [address] Dec, Bipolar 1 disorder, mixed F3 1.60 [facility] [id number] [place] [address] Dec, Low back pain M54.5 and Recu rrent urinary tract infection N39.0 [facility] [address] [id number] [address] [place] [address] Nov, Bipolar 1 disorder, mixed F3 1.60 [facility] [address] [facility] [id number] [address] [place] [address] Nov, Bipolar 1 disorder, mixed F3 1.60 [facility] [address] [facility] [id number] [address] [place] [address] Nov, Bipolar 1 disorder, mixed F3 1.60 [facility] [address] [facility] [id number] [address] [place] [address] Nov, Bipolar 1 disorder, mixed F3 1.60 [facility] [address] [facility] [id number] [address] [place] [address] Nov, [facility] [address] [facility] [id number] [address] [place] [address] Nov, Anesthesia of skin R20.0 ; F requent UTI N39.0 ; Tobacco abuse Z72.0 and Colon cancer screening Z12.11 [facility] [address] [facility] [id number] [address] [place] [address] Nov, Bipolar 1 disorder, mixed F3 1.60 [facility] [address] [facility] [id number] [address] [place] [address] October, Bipolar 1 disorder, mixed F3 1.60 [facility] [address] [facility] [id number] [address] [place] [address] October, Bipolar 1 disorder, mixed F3 1.60 [facility] [address] [facility] [id number] [address] [place] [address] October, Bipolar 1 disorder, mixed F3 1.60 [facility] [address] [facility] [id number] [address] [place] [address] October, Bipolar 1 disorder, mixed F3 1.60 [facility] [address] [facility] [id number] [address] [place] [address] October, Bipolar 1 disorder, mixed F3 1.60 [address] [address] [address] October, Cervicalgia M54.2 and Bipola r 1 disorder, mixed F31.60 [address] [address] [address] October, Hypertension I10 ; Hyperlipi demia, unspecified hyperlipidemia type E78.5 and Family history of thyroid disease Z83.49 [place] [address] [address] October, [place] [address] [address] [address] October, Hypertension I10 ; Hyperlipi demia, unspecified hyperlipidemia type E78.5 and Family history of thyroid problem Z83.49 [place] [address] [address] October, Bipolar 1 disorder, mixed F3 1.60 [place] [address] [address] Sep, Bipolar 1 disorder, mixed F3 1.60 [place] [address] [address] Sep, Bipolar 1 disorder, mixed F3 1.60 [place] [address] [address] Sep, Bipolar 1 disorder, mixed F3 1.60 [place] [address] [address] Sep, History of colon polyps Z86. 010 and Hematochezia K92.1 [place] [address] [address] Sep, Major depressive disorder, r ecurrent episode, moderate F33.1 [place] [address] [address] Sep, Bipolar 1 disorder, mixed F3 1.60 [facility] [address] [facility] [id number] [address] [place] [address] Aug, Hot flashes due to menopause N95.1 [facility] [address] [facility] [id number] [address] [place] [address] Aug, Bipolar 1 disorder, mixed F3 1.60 [facility] [id number] [place] [address] Aug, [facility] [id number] [place] [address] Aug, Bipolar 1 disorder, mixed F3 1.60 [facility] [id number] [place] [address] Aug, Bipolar 1 disorder, mixed F3 1.60 [facility] [address] [address] Aug, Hot flashes due to menopause N95.1 ; Cervicalgia M54.2 and Ataxia R27.0 [facility] [id number] [place] [address] Jul, Bipolar 1 disorder, mixed F3 1.60 [facility] [id number] [place] [address] Jul, Bipolar 1 disorder, mixed F3 1.60 [facility] [id number] [place] [address] Jul, Bipolar 1 disorder, mixed F3 1.60 [facility] [id number] [place] [address] Jul, Bipolar 1 disorder, mixed F3 1.60 [facility] [id number] [place] [address] Jul, Bipolar 1 disorder, mixed F3 1.60 [facility] [id number] [place] [address] Jul, Cervicalgia M54.2 ; Tremor R 25.1 ; Hearing abnormally acute, unspecified laterality H93.239 ; Alopecia L65.9 ; Encounter for immunization Z23 and Family history of thyroid disease Z83.49 [facility] [address] [id number] 06 Jul, 2016 Bipolar 1 disorder, mixed F3 1.60 [place] [address] [address] [address] Jun, [place] [address] [address] Jun, Hearing disorder, unspecifie d laterality H93.299 [place] [address] [address] Jun, Bipolar 1 disorder, mixed F3 1.60 [place] [address] [address] Jun, Bipolar 1 disorder, mixed F3 1.60 [place] [address] [address] Jun, Allergic rhinitis J30.9 [place] [address] [address] Jun, Bipolar 1 disorder, mixed F3 1.60 [place] [address] [address] Jun, Bipolar 1 disorder, mixed F3 1.60 [place] [address] [address] Jun, Allergic rhinitis J30.9 [place] [address] [address] Jun, Allergic rhinitis J30.9 [place] [address] [address] Jun, Bipolar 1 disorder, mixed F3 1.60 [place] [address] [address] [place] [address] May, Bipolar 1 disorder, mixed F3 1.60 [facility] [address] [facility] [id number] [address] [place] [address] May, Bipolar 1 disorder, mixed F3 1.60 [facility] [id number] [place] [address] May, [facility] [address] [facility] [id number] [address] [place] [address] May, Bipolar 1 disorder, mixed F3 1.60 [facility] [address] [facility] [id number] [address] [place] [address] May, Bipolar 1 disorder, mixed F3 1.60 [facility] [id number] [place] [address] May, [facility] [address] [address] May, [facility] [id number] [place] [address] May, [facility] [address] [address] May, Abdominal pain, unspecified location R10.9 [facility] [address] [address] May, [facility] [address] [address] Apr, Hematuria R31.9 ; Ataxia R27 .0 and Hearing loss, unspecified laterality H91.90 [facility] [id number] [place] [address] Apr, Bipolar 1 disorder, mixed F3 1.60 [facility] [address] [facility] [id number] [address] [place] [address] Apr, Acute effusion of both middl e ears H65.193 [place] [address] [address] 10 Apr, 2016 Hematuria R31.9 and Pyelonep hritis N12 [place] [address] [address] Apr, [place] [address] [address] Mar, Bipolar 1 disorder, mixed F3 1.60 [place] [address] [address] Mar, [place] [address] [address] Mar, Bipolar 1 disorder, mixed F3 1.60 [place] [address] [address] Mar, Bipolar 1 disorder, mixed F3 1.60 [place] [address] [address] Mar, Encounter for immunization Z 23 and Gastritis without bleeding, unspecified chronicity, unspecified gastritis type K29.70 [place] [address] [address] Mar, Bipolar 1 disorder, mixed F3 1.60 and Grief F43.20 [place] [address] [address] Mar, Gastritis without bleeding, unspecified chronicity, unspecified gastritis type K29.70 [place] [address] [address] Mar, Bipolar 1 disorder, mixed F3 1.60 [place] [address] [address] Mar, Gastritis without bleeding, unspecified chronicity, unspecified gastritis type K29.70 [place] [address] [address] Mar, [facility] [id number] [place] [address] Feb, Bipolar 1 disorder, mixed F3 1.60 [place] [address] [place] [id number] [place] [address] Feb, Bipolar 1 disorder, mixed F3 1.60 and Grief F43.20 [facility] [address] [address] Feb, Gastritis without bleeding, unspecified chronicity, unspecified gastritis type K29.70 [facility] [id number] [place] [address] 14 Feb, 2016 Bipolar 1 disorder, mixed F3 1.60 [facility] [id number] [place] [address] 09 Feb, 2016 Gastroesophageal reflux dise ase, esophagitis presence not specified K21.9 [facility] [id number] [address] [place] [address] Jan, Bipolar 1 disorder, mixed F3 1.60 [place] [address] [address] Jan, Bipolar 1 disorder, mixed F3 1.60 and Unsteady gait R26.81 [place] [address] [address] Jan, Bipolar 1 disorder, mixed F3 1.60 [place] [id number] [address] Jan, Bipolar 1 disorder, mixed F3 1.60 and Other custodial (current) drug therapy Z79.899 [place] [address] [address] Jan, Bipolar 1 disorder, mixed F3 1.60 [place] [address] [place] [id number] [place] [address] Jan, Bipolar 1 disorder, mixed F3 1.60 [place] [address] [facility] [id number] [address] [place] [address] Jan, Bipolar 1 disorder, mixed F3 1.60 ; Grief F43.20 and Other custodial (current) drug therapy Z79.899 [place] [id number] [facility] [id number] [address] [place] [address] Jan, Bipolar 1 disorder, mixed F3 1.60 [place] [address] [facility] [id number] [address] [place] [address] Dec, [place] [address] [facility] [id number] [address] [place] [address] Dec, Bipolar 1 disorder, mixed F3 1.60 ; Vitamin D deficiency, unspecified E55.9 ; H/O allergic rhinitis Z87.09 ; Other chronic pain G89.29 and Dorsalgia, unspecified M54.9 [place] [address] [place] [id number] [place] [address] Dec, [place] [address] [facility] [id number] [address] [place] [address] Dec, Bipolar 1 disorder, mixed F3 1.60 [place] [address] [facility] [id number] [address] [place] [address] Dec, Major depressive disorder, r ecurrent episode, moderate F33.1 [place] [address] [facility] [id number] [address] [place] [address] Dec, Major depressive disorder, r ecurrent episode, moderate F33.1 [place] [address] [facility] [id number] [address] [place] [address] Nov, [place] [address] [place] [id number] [place] [address] Nov, Bipolar 1 disorder, mixed F3 1.60 [place] [address] [facility] [id number] [address] [place] [address] Nov, Major depressive disorder, r ecurrent episode, moderate F33.1 [place] [address] [facility] [id number] [address] [place] [address] Nov, Cervicalgia M54.2 ; Arthralg ia of hip, unspecified laterality M25.559 ; Allergic rhinitis J30.9 and Hormone replacement therapy Z79.890 [facility] [address] [facility] [id number] [address] [place] [address] 13 Nov, 2015 Other seasonal allergic rhin itis J30.2 [facility] [address] [facility] [id number] [address] [place] [address] October, Major depressive disorder, r ecurrent episode, moderate F33.1 [place] [address] [facility] [id number] [address] [place] [address] October, Major depressive disorder, r ecurrent episode, moderate F33.1 and Arthralgia of hip, unspecified laterality M25.559 [place] [address] [facility] [id number] [address] [place] [address] October, Grief F43.20 ; Hypertension I10 ; Hyperlipidemia, unspecified hyperlipidemia type E78.5 ; Other chronic pain G89.29 and Allergic rhinitis, unspecified allergic rhinitis type J30.9 [place] [address] [facility] [id number] [address] [place] [address] October, Major depressive disorder, r ecurrent episode, moderate F33.1 [place] [address] [facility] [id number] [address] [place] [address] Sep, Major depressive disorder, r ecurrent episode, moderate F33.1 [place] [address] [facility] [id number] [address] [place] [address] Sep, [place] [address] [place] [id number] [place] [id number] Sep, Major depressive disorder, r ecurrent episode, moderate F33.1 [place] [address] [address] [facility] [id number] [address] [place] [id number] Sep, Grief F43.20 [place] [id number] [facility] [id number] [address] [place] [id number] 30 Aug, 2015 Major depressive disorder, r ecurrent episode, moderate F33.1 [place] [address] [address] [facility] [id number] [address] [place] [id number] Aug, Bipolar 1 disorder, mixed F3 1.60 [place] [address] [address] [facility] [id number] [address] [place] [id number] Aug, Allergic rhinitis J30.9 ; Ce rvicalgia M54.2 and Low back pain M54.5 [place] [address] [address] [facility] [id number] [address] [place] [id number] Aug, Major depressive disorder, r ecurrent episode, moderate F33.1 [facility] [address] [facility] [id number] [address] [place] [id number] Aug, Sinusitis J32.9 and Tobacco dependence F17.200 [place] [address] [address] [facility] [id number] [address] [place] [id number] Aug, [place] [address] [address] [facility] [id number] [address] [place] [phone] Aug, Depressive disorder, not els ewhere classified F32.9 ; Hormone replacement therapy Z79.[address] scan, head R93.0 [place] [address] [address] [facility] [id number] [address] [place] [phone] Aug, Major depressive disorder, r ecurrent episode, moderate F33.1 [place] [id number] [address] [facility] [id number] [address] [place] [id number] Jul, Major depressive disorder, r ecurrent episode, moderate F33.1 [place] [address] [address] [facility] [id number] [address] [place] [id number] Jul, Abdominal pain R10.9 and Hyp ertension I10 [place] [address] [address] [facility] [id number] [address] [place] [phone] Jul, [place] [id number] [id number] [address] [place] [id number] 05 Jul, 2015 Major depressive disorder, r ecurrent episode, moderate F33.1 [facility] [address] [id number] [address] [place] [id number] Jul, [facility] [address] [id number] [address] [place] [id number] Jul, [facility] [address] [id number] [address] [place] [id number] Jun, [facility] [address] [id number] [address] [place] [address] Jun, Depressive disorder, not els ewhere classified F32.9 [facility] [address] [id number] [address] [place] [id number] Jun, [facility] [address] [facility] [id number] [address] [place] [address] Jun, [facility] [address] [facility] [id number] [address] [place] [address] Jun, Arthralgia of hip, unspecifi ed laterality M25.559 ; Bruising, spontaneous R23.3 and Night sweats R61 [facility] [address] [facility] [id number] [address] [place] [id number] Jun, [facility] [address] [facility] [id number] [address] [place] [address] Jun, [facility] [address] [id number] [address] [place] [id number] May, [facility] [address] [facility] [id number] [address] [place] [address] May, Myalgia M79.1 and Screening, lipid Z13.220 [facility] [address] [facility] [id number] [address] [place] [address] Apr, 2015 Status post cervical spinal fusion Z98.1 ; Fibromyalgia M79.7 and Unsteady gait R26.81 [facility] [address] [id number] [address] [place] [address] Nov, [facility] [address] [id number] [address] [place] [id number] Nov, [facility] [address] [facility] [id number] [address] [place] [address] October, [facility] [address] [id number] [address] [place] [id number] October, [facility] [address] [facility] [id number] [address] [place] [address] October, [facility] [address] [facility] [id number] [address] [place] [address] October, [facility] [address] [facility] [id number] [address] [place] [id number] October, [facility] [address] [facility] [id number] [address] [place] [id number] October, Dysuria 788.1 ; Nausea 787.0 2 and Urinary tract infection 599.0 [facility] [address] [facility] [id number] [address] [place] [address] Sep, [facility] [address] [facility] [id number] [address] [place] [address] Sep, [facility] [address] [facility] [id number] [address] [place] [id number] Aug, [facility] [address] [facility] [id number] [address] [place] [id number] Aug, [facility] [address] [facility] [id number] [address] [place] [id number] Aug, [facility] [address] [facility] [id number] [address] [place] [id number] Aug, [facility] [address] [facility] [id number] [address] [place] [id number] 23 Aug, 2014 [facility] [address] [id number] [address] [place] [address], [place] [id number] 19 Aug, 2014 [facility] [address] [id number] [address] [place] [address], [place] [id number] 19 Aug, 2014 [facility] [address] [id number] [address] [place] [address], [place] [id number] 19 Aug, 2014 [facility] [address] [id number] [address] [place] [address], [place] [address] 19 Aug, 2014 [facility] [address] [id number] [address] [place] [address], [place] [id number] 18 Aug, 2014 [facility] [address] [id number] [address] [place] [address], [place] [address] 18 Aug, 2014 [facility] [address] [id number] [address] [place] [address], [place] [id number] 13 Aug, 2014 [facility] [address] [id number] [address] [place] [address], [place] [id number] 13 Aug, 2014 [facility] [address] [id number] [address] [place] [address], [place] [address] 11 Aug, 2014 [facility] [address] [id number] [address] [place] [address], [place] [id number] 11 Aug, 2014 [facility] [address] [id number] [address] [place] [address], [place] [id number] 06 Aug, 2014 [facility] [address] [id number] [address] [place] [address], [place] [id number] 06 Aug, 2014 [facility] [address] [id number] [address] [place] [address], [place] [address] 05 Aug, 2014 [facility] [address] [id number] [address] [place] [address], [place] [id number] 05 Aug, 2014 [facility] [address] [id number] [address] [place] [address], [place] [id number] 04 Aug, 2014 [facility] [address] [id number] [address] [place] [address], [place] [address] Aug, [facility] [address] [id number] [address] [place] [address], [place] [address] Aug, [facility] [address] [id number] [address] [place] [address], [place] [address] Jul, 2014 [facility] [address] [id number] [address] [place] [address], [place] [address] Jul, 2014 [facility] [address] [id number] [address] [place] [address], [place] [id number] Jul, 2014 [facility] [address] [id number] [address] [place] [address], [place] [id number] Jul, 2014 [facility] [address] [id number] [address] [place] [address], [place] [id number] Jul, 2014 [facility] [address] [id number] [address] [place] [address], [place] [address] Jul, 2014 [facility] [address] [id number] [address] [place] [address], [place] [address] Jul, 2014 [facility] [address] [id number] [address] [place] [address], [place] [id number] Jul, 2014 [facility] [address] [id number] [address] [place] [address], [place] [id number] Jul, 2014 [facility] [address] [id number] [address] [place] [id number] Jul, 2014 [facility] [address] [id number] [address] [place] [address], [place] [address] Jul, 2014 [facility] [address] [id number] [address] [place] [address], [place] [address] Jul, 2014 [facility] [address] [id number] [address] [place] [address], [place] [address] Jul, 2014 [facility] [address] [id number] [address] [place] [address], [place] [address] Jul, [facility] [address] [id number] [address] [place] [address], [place] [address] Jun, [facility] [address] [id number] [address] [place] [address], [place] [address] Jun, [facility] [address] [id number] [address] [place] [address], [place] [address] Jun, [facility] [address] [id number] [address] [place] [address], [place] [address] Jun, [facility] [address] [id number] [address] [place] [address], [place] [address] Jun, [facility] [address] [id number] [address] [place] [address], [place] [address] Jun, [facility] [address] [id number] [address] [place] [address], [place] [address] May, [facility] [address] [id number] [address] [place] [address], [place] [address] May, [facility] [address] [id number] [address] [place] [address], [place] [address] May, [facility] [address] [id number] [address] [place] [address], [place] [address] May, [facility] [address] [id number] [address] [place] [address], [place] [address] May, [facility] [address] [id number] [address] [place] [address], [place] [address] May, [facility] [address] [id number] [address] [place] [address], [place] [address] Apr, [facility] [address] [id number] [address] [place] [address], [place] [address] Apr, [facility] [address] [id number] [address] [place] [address], [place] [address] Apr, [facility] [address] [id number] [address] [place] [address], [place] [address] Apr, [facility] [address] [id number] [address] [place] [address], [place] [address] Apr, [facility] [address] [id number] [address] [place] [address], [place] [id number] Apr, [facility] [address] [id number] [address] [place] [address], [place] [address] Mar, [facility] [address] [id number] [address] [place] [address], [place] [address] Mar, [facility] [address] [id number] [address] [place] [address], [place] [address] Mar, [facility] [address] [id number] [address] [place] [address], [place] [address] Mar, [facility] [address] [id number] [address] [place] [address], [place] [address] Mar, [facility] [address] [id number] [address] [place] [address], [place] [address] Mar, [facility] [address] [id number] [address] [place] [address], [place] [address] Mar, [facility] [address] [id number] [address] [place] [address], [place] [address] Mar, [facility] [address] [id number] [address] [place] [address] Mar, [facility] [address] [id number] [address] [place] [address], [place] [address] Mar, [facility] [address] [id number] [address] [place] [address], [place] [address] Mar, [facility] [address] [id number] [address] [place] [address], [place] [address] Mar, [facility] [address] [id number] [address] [place] [address], [place] [id number] 30 Feb, 2014 [facility] [address] [id number] [facility] [place] [address] 29 Feb, 2014 [facility] [address] [id number] [address] [place] [address], [place] [address] Feb, [facility] [address] [id number] [address] [place] [address], [place] [address] Feb, [facility] [address] [id number] [address] [place] [address], [place] [address] Feb, [facility] [address] [id number] [address] [place] [address], [place] [address] Feb, [facility] [address] [id number] [address] [place] [address], [place] [address] Feb, [facility] [address] [id number] [address] [place] [address], [place] [address] Jan, [facility] [address] [id number] [address] [place] [address], [place] [address] Jan, [facility] [address] [id number] [address] [place] [address], [place] [address] Jan, [facility] [address] [id number] [address] [place] [address], [place] [address] Dec, [facility] [address] [id number] [address] [place] [address], [place] [address] Dec, [facility] [address] [id number] [address] [place] [address], [place] [address] Dec, [facility] [address] [id number] [address] [place] [address], [place] [address] Dec, [facility] [address] [id number] [address] [place] [address], [place] [address] Sep, [facility] [address] [id number] [address] [place] [address], [place] [address] Sep, [facility] [address] [id number] [address] [place] [address], [place] [address] Sep, [facility] [address] [id number] [address] [place] [address], [place] [address] Sep, [facility] [address] [id number] [address] [place] [address], [place] [address] Sep, [facility] [address] [id number] [address] [place] [address], [place] [id number] Sep, [facility] [address] [id number] [address] [place] [address], [place] [address] Sep, [facility] [address] [id number] [address] [place] [address], [place] [address] Sep, [facility] [address] [id number] [address] [place] [address], [place] [address] Aug, [facility] [address] [id number] [address] [place] [address], [place] [address] Aug, [facility] [address] [id number] [address] [place] [address], [place] [address] May, [facility] [address] [id number] [address] [place] [address], [place] [address] May, [facility] [address] [id number] [address] [place] [address], [place] [address] Apr, [facility] [address] [id number] [address] [place] [address], [place] [address] Apr, [facility] [address] [id number] [address] [place] [address], [place] [address] Apr, [facility] [address] [id number] [address] [place] [address], [place] [address] Apr, [facility] [address] [id number] [address] [place] [address], [place] [address] Apr, [facility] [address] [id number] [address] [place] [address], [place] [address] Apr, [facility] [address] [id number] [address] [place] [address], [place] [address] 18 May, 2012 [facility] [address] [id number] [address] [place] [address], [place] [address] 18 May, 2012 [facility] [address] [id number] [address] [place] [address], [place] [address] 15 May, 2012 [facility] [address] [id number] [address] [place] [address], [place] [address] 15 May, 2012 [facility] [address] [id number] [address] [place] [address], [place] [address] 13 May, 2012 [facility] [address] [id number] [address] [place] [address], [place] [address] 13 May, 2012 [facility] [address] [id number] [address] [place] [address], [place] [address] 13 Apr, 2012 [facility] [address] [id number] [address] [place] [address], [place] [address] 13 Apr, 2012 [facility] [address] [id number] [address] [place] [address], [place] [address] Apr, [facility] [address] [id number] [address] [place] [address], [place] [address] Apr, [facility] [address] [id number] [address] [place] [address], [place] [address] Apr, [facility] [address] [id number] [address] [place] [address] Apr, [facility] [address] [id number] [address] [place] [address], [place] [address] Apr, [facility] [address] [id number] [address] [place] [address], [place] [address] Apr, [facility] [address] [id number] [address] [place] [address], [place] [address] Apr, [facility] [address] [id number] [address] [place] [address] Apr, [facility] [address] [id number] [address] [place] [address], [place] [address] Mar, [facility] [address] [id number] [address] [place] [address] Mar, [facility] [address] [id number] [address] [place] [address], [place] [address] Mar, [facility] [address] [id number] [address] [place] [address], [place] [address] Mar, [facility] [address] [id number] [address] [place] [address], [place] [address] Mar, [facility] [address] [id number] [address] [place] [address], [place] [address] Mar, [facility] [address] [id number] [address] [place] [address] Mar, [facility] [address] [id number] [address] [place] [address], [place] [id number] Mar, [facility] [address] [id number] [address] [place] [address], [place] [address] Mar, [facility] [address] [id number] [address] [place] [address] Feb, [facility] [address] [id number] [address] [place] [address], [place] [id number] 16 Feb, 2012 [facility] [address] [id number] [address] [place] [address] Feb, [facility] [address] [id number] [address] [place] [address], [place] [address] Jan, [facility] [address] [id number] [address] [place] [address] Jan, [facility] [address] [id number] [address] [place] [address] Jan, [facility] [address] [id number] [facility] [place] [place] [address] 18 Jan, 2012 [facility] [address] [id number] [facility] [place] [address] Jan, [facility] [address] [id number] [facility] [place] [address] Jan, [facility] [address] [id number] [address] [place] [address], [place] [id number] 16 Jan, 2012 [facility] [address] [id number] [address] [place] [address], [place] [address] Jan, [facility] [address] [id number] [address] [place] [address], [place] [address] Jan, [facility] [address] [id number] [address] [place] [address], [place] [address] Jan, [facility] [address] [id number] [address] [place] [address], [place] [id number] Dec, [facility] [address] [id number] [address] [place] [address], [place] [id number] Dec, [facility] [address] [id number] [address] [place] [address], [place] [id number] Dec, [facility] [address] [id number] [address] [place] [address], [place] [id number] Dec, [facility] [address] [id number] [address] [place] [address], [place] [id number] Nov, [facility] [address] [id number] [address] [place] [address], [place] [id number] Nov, [facility] [address] [id number] [address] [place] [address], [place] [id number] Nov, [facility] [address] [id number] [address] [place] [address], [place] [id number] October, [facility] [address] [id number] [address] [place] [address] [address] October, [facility] [address] [id number] [address] [place] [id number] October, [facility] [address] [id number] [address] [place] [id number] October, [facility] [address] [id number] [address] [place] [id number] October, [facility] [address] [id number] [address] [place] [id number] October, [facility] [address] [id number] [address] [place] [id number] Aug, [facility] [address] [id number] [address] [place] [id number] Mar, [facility] [address] [id number] [address] [place] [phone] Nov, [facility] [address] [id number] [address] [place] [id number] May, [facility] [address] [id number] [address] [place] [id number] May, [facility] [address] [id number] [address] [place] [id number] Apr, [facility] [address] [id number] [address] [place] [id number] Mar, [facility] [address] [id number] [address] [place] [id number] Mar, IMMUNIZATIONS No Known Immunizations SOCIAL HISTORY Never Assessed REASON FOR VISIT PLAN OF CARE VITAL SIGNS Blood pressure systolic 128 mmHg 2014-06-05 Blood pressure diastolic 78 mmHg 2014-06-05 MEDICATIONS Unknown Medications RESULTS No Results PROCEDURES [...]
--- OUTSIDE RECORDS SUMMARY | 2020-02-02 19:40 | XMS REPORT ---
Author Author Sydnie HENRIQUEZ Organization [facility] Address [address] [place] [address] Care Team Providers Care [employer] Cook Name Role Phone KATELYN HENRIQUEZ Unavailable PROBLEMS Type Condition ICD9-CM Code XHP98-AV Code Onset Dates Condition S tatus SNOMED Code Problem Bruising, spontaneous R23.3 Active 743545509 Problem Arthralgia of hip, unspecified laterality M25.559 Active 58536403 Problem Night sweats R61 Active 2037536 0 Problem Grief F43.20 Active 93589750 Problem Hypertension I10 Active 9896150 3 Problem Hyperlipidemia, unspecified hyperlipidemia type E7 8.5 Active 08873893 Problem Other chronic pain G89.29 Active 8 7801722 Problem Bladder spasm N32.89 Active 593593 006 Problem Age-related osteoporosis without current pathological fracture M81.0 Active 69392124 Problem Fibromyalgia M79.7 Active 5398237 7 Problem Hormone replacement therapy Z79.890 Ac tive 641354354 Problem Sensorineural hearing loss (SNHL) of both ears H90 .3 Active 052605307 Problem Ab[address] CT scan, head R93.0 Active 668910771 Problem Allergic rhinitis J30.9 Active 61 606733 Problem Hearing loss, unspecified laterality H91.90 Active 10021084 Problem Generalized anxiety disorder F41.1 A ctive 29152297 Problem History of colon polyps Z86.010 Active 798696935 Problem Hammer toe of right foot M20.41 Activ e 378243520 Problem Hematuria, unspecified type R31.9 Ac tive 26343726 Problem Major depressive disorder, recurrent episode, moderate F33.1 Active 919434770 Problem Imbalance R26.89 Active 289950130 Problem Acute left-sided low back pain with left-sided sciatica M54.42 Active 815777565 Problem Sciatica of left side M54.32 Active 02982537 Problem Plantar wart of right foot B07.0 Act mitchell [id number] Problem Hearing loss, unspecified hearing loss type, uns pecified laterality H91.90 Active 03776835 Problem Bipolar 1 disorder, mixed F31.60 Acti ve 77392254 Problem Osteoporotic compression fracture of spine with delayed healing M80.88XG Active 21973830 Problem Gastritis without bleeding, unspecified chronicity, unspecified gastritis type K29.70 Active 634786436 Problem Ataxia R27.0 Active 78059135 Problem Slow transit constipation K59.01 Acti ve 66194388 Problem Tobacco use disorder F17.200 Active 711072833 Problem Post menopausal syndrome N95.1 Activ e 689217336 Problem Sciatica of right side M54.31 Active 70635881 ALLERGIES No Information ENCOUNTERS Encounter Location Date Diagnosis [place] [address] [address] Dec, [place] [address] [address] October, [place] [address] [address] Sep, [place] [address] [address] Sep, Bipolar 1 disorder, mixed F3 1.60 [place] [address] [place] [address] 15 Sep, 2019 Compression fracture of L1 v ertebra, sequela S32.010S ; Tobacco use disorder F17.200 ; Age-related osteoporosis with current pathological fracture with routine healing, subsequent encounter M80.00XD ; Allergic rhinitis J30.9 ; Generalized anxiety disorder F41.1 and Recurrent UTI N39.0 [place] [address] [address] [place] [id number] [place] [address] 14 Sep, 2019 Bipolar 1 disorder, mixed F3 1.60 ; Generalized anxiety disorder F41.1 and Tobacco use disorder F17.200 [place] [address] [place] [id number] [place] [address] 13 Sep, 2019 [place] [address] [place] [id number] [address] [place] [address] 08 Sep, 2019 Bipolar 1 disorder, mixed F3 1.60 [facility] [address] [facility] [id number] [address] [place] [address] 23 Aug, 2019 [facility] [address] [place] [id number] [place] [address] 23 Aug, 2019 Yeast vaginitis B37.3 [facility] [address] [place] [id number] [place] [address] 14 Aug, 2019 Vaginal discharge N89.8 [facility] [address] [place] [id number] [place] [address] 10 Aug, 2019 Bipolar 1 disorder, mixed F3 1.60 [facility] [address] [place] [id number] [place] [address] 04 Aug, 2019 Age-related osteoporosis wit h current pathological fracture with routine healing, subsequent encounter M80.00XD [place] [address] [address] 24 Jul, 2019 Age-related osteoporosis wit h current pathological fracture with routine healing, subsequent encounter M80.00XD [place] [address] [address] 24 Jul, 2019 Osteoporotic compression fra cture of spine with delayed healing M80.88XG and Tobacco use disorder F17.200 [place] [address] [place] [id number] [place] [address] 11 Jul, 2019 Bipolar 1 disorder, mixed F3 1.60 [facility] [address] [place] [id number] [address] [place] [address] 07 Jul, 2019 [place] [address] [place] [address] 03 Jul, 2019 Tobacco use disorder F17.200 [place] [address] [place] [id number] [place] [address] 15 Jun, 2019 Bipolar 1 disorder, mixed F3 1.60 [place] [address] [place] [id number] [address] [place] [address] Jun, Bipolar 1 disorder, mixed F3 1.60 ; Generalized anxiety disorder F41.1 and Tobacco use disorder F17.200 [facility] [address] [facility] [id number] [address] [place] [address] Jun, Tobacco use disorder F17.200 [facility] [address] [facility] [id number] [address] [place] [address] May, [facility] [address] [id number] [address] [place] [address] May, Compression fracture of L1 v ertebra with routine healing, subsequent encounter S32.010D [facility] [address] [facility] [id number] [address] [place] [address] May, [facility] [address] [facility] [id number] [address] [place] [address] May, [facility] [address] [facility] [id number] [address] [place] [address] May, [facility] [address] [facility] [id number] [address] [place] [address] May, [facility] [address] [facility] [id number] [address] [place] [address] May, [facility] [address] [facility] [id number] [address] [place] [address] May, [facility] [address] [facility] [id number] [address] [place] [address] May, [facility] [address] [facility] [id number] [address] [place] [address] May, Bipolar 1 disorder, mixed F3 1.60 [facility] [address] [facility] [id number] [address] [place] [address] May, Closed fracture of right upp er extremity with routine healing, subsequent encounter S42.301D and Hearing loss, unspecified hearing loss type, unspecified laterality H91.90 [place] [address] [place] [id number] [place] [address] May, [place] [address] [address] Apr, Allergic rhinitis J30.9 ; Ab dominal pain, unspecified location R10.9 and Seborrheic keratosis L82.1 [place] [address] [address] Mar, Bipolar 1 disorder, mixed F3 1.60 [place] [address] [address] Mar, Bipolar 1 disorder, mixed F3 1.60 ; Generalized anxiety disorder F41.1 and Tobacco use disorder F17.200 [place] [address] [address] Feb, Excessive gas R14.3 ; Other chronic pain G89.29 ; Encounter for immunization Z23 ; Hyperlipidemia, unspecified hyperlipidemia type E78.5 ; Bipolar 1 disorder, mixed F31.60 and 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.899 [place] [address] [address] Feb, Bipolar 1 disorder, mixed F3 1.60 [place] [address] [place] [id number] [address] [place] [address] Jan, Sciatica of right side M54.3 1 ; Low back pain M54.5 and Major depressive disorder, recurrent episode, moderate F33.1 [place] [address] [place] [id number] [place] [address] Jan, Bipolar 1 disorder, mixed F3 1.60 [place] [address] [place] [id number] [address] [place] [address] Dec, Normal pelvic exam Z01.419 [place] [address] [address] Dec, Bipolar 1 disorder, mixed F3 1.60 [facility] [address] [facility] [id number] [address] [place] [address] Nov, Bipolar 1 disorder, mixed F3 1.60 [facility] [address] [facility] [id number] [address] [place] [address] Nov, Bipolar 1 disorder, mixed F3 1.60 ; Generalized anxiety disorder F41.1 ; Tobacco use disorder F17.200 and Other fpc (current) drug therapy Z79.899 [facility] [address] [id number] [address] [place] [address] Nov, [facility] [address] [facility] [id number] [address] [place] [address] Nov, Bipolar 1 disorder, mixed F3 1.60 [facility] [address] [facility] [id number] [address] [place] [address] October, Bipolar 1 disorder, mixed F3 1.60 [facility] [address] [facility] [id number] [address] [place] [address] October, Bipolar 1 disorder, mixed F3 1.60 [facility] [address] [facility] [id number] [address] [place] [address] October, [facility] [address] [facility] [id number] [address] [place] [address] October, Bipolar 1 disorder, mixed F3 1.60 ; Generalized anxiety disorder F41.1 and Tobacco use disorder F17.200 [facility] [address] [facility] [id number] [address] [place] [address] Sep, [facility] [address] [facility] [id number] [address] [place] [address] Sep, Encounter for Medicare annua wellness exam Z00.00 ; Major depressive disorder, recurrent episode, moderate F33.1 ; Allergic rhinitis J30.9 ; Bipolar 1 disorder, mixed F31.60 ; Fibromyalgia M79.7 ; Hyperlipidemia, unspecified hyperlipidemia type E78.5 ; Hormone replacement therapy Z79.890 ; Encounter for screening for lung cancer Z12.2 and Tobacco use disorder F17.200 [place] [address] [place] [id number] [place] [address] 23 Sep, 2018 Bipolar 1 disorder, mixed F3 1.60 [place] [address] [place] [id number] [place] [address] Sep, Other chronic pain G89.29 ; Hyperlipidemia, unspecified hyperlipidemia type E78.5 ; Breast cancer screening Z12.31 and Post menopausal syndrome N95.1 [place] [address] [place] [id number] [place] [address] 16 Sep, 2018 Bipolar 1 disorder, mixed F3 1.60 [place] [address] [place] [id number] [place] [address] Sep, Bipolar 1 disorder, mixed F3 1.60 ; Generalized anxiety disorder F41.1 and Tobacco use disorder F17.200 [place] [address] [place] [id number] [address] [place] [address] 11 Sep, 2018 Gastritis without bleeding, unspecified chronicity, unspecified gastritis type K29.70 [place] [address] [place] [id number] [address] [place] [address] Sep, Exercise counseling Z71.82 [place] [address] [place] [id number] [place] [address] Aug, Exercise counseling Z71.82 [place] [address] [place] [id number] [address] [place] [address] Aug, Bipolar 1 disorder, mixed F3 1.60 [place] [address] [place] [id number] [place] [address] Aug, Exercise counseling Z71.82 [place] [address] [place] [id number] [place] [address] Aug, Bipolar 1 disorder, mixed F3 1.60 [place] [address] [place] [id number] [place] [address] Aug, Gastritis without bleeding, unspecified chronicity, unspecified gastritis type K29.70 ; Tobacco abuse Z72.0 ; Generalized anxiety disorder F41.1 and Weight gain R63.5 [facility] [address] [place] [address] Aug, Bipolar 1 disorder, mixed F3 1.60 ; Generalized anxiety disorder F41.1 and Tobacco use disorder F17.200 [place] [address] [place] [id number] [address] [place] [address] Jul, Bipolar 1 disorder, mixed F3 1.60 [place] [address] [place] [id number] [place] [address] Jul, [place] [address] [place] [address] Jul, Bipolar 1 disorder, mixed F3 1.60 [place] [address] [address] Jul, Allergic rhinitis J30.9 ; Ma darion depressive disorder, recurrent episode, moderate F33.1 and Tobacco dependence F17.200 [place] [address] [place] [id number] [place] [address] Jun, [place] [address] [place] [id number] [place] [address] Jun, [place] [address] [place] [address] Jun, Bipolar 1 disorder, mixed F3 1.60 [place] [address] [place] [id number] [address] [place] [address] Jun, Bipolar 1 disorder, mixed F3 1.60 [place] [address] [place] [id number] [address] [place] [address] Jun, Bipolar 1 disorder, mixed F3 1.60 [facility] [address] [place] [id number] [address] [place] [address] Jun, Generalized anxiety disorder F41.1 ; Tobacco abuse Z72.0 and Major depressive disorder, recurrent episode, moderate F33.1 [facility] [address] [facility] [id number] [address] [place] [address] May, Bipolar 1 disorder, mixed F3 1.60 [place] [address] [facility] [id number] [address] [place] [address] May, Bipolar 1 disorder, mixed F3 1.60 and Generalized anxiety disorder F41.1 [place] [address] [place] [id number] [address] [place] [address] May, Bipolar 1 disorder, mixed F3 1.60 [place] [address] [place] [id number] [place] [address] May, Allergic rhinitis J30.9 [place] [address] [place] [id number] [address] [place] [address] May, Bipolar 1 disorder, mixed F3 1.60 [place] [address] [place] [id number] [address] [place] [address] May, [place] [address] [place] [id number] [address] [place] [address] Apr, Allergic rhinitis J30.9 ; Dy sfunction of both eustachian tubes H69.83 ; History of bladder surgery Z98.890 and Cervicalgia M54.2 [place] [address] [place] [id number] [address] [place] [address] Mar, Bipolar 1 disorder, mixed F3 1.60 [place] [address] [place] [id number] [address] [place] [address] Mar, [place] [address] [place] [id number] [place] [address] Mar, Slow transit constipation K5 9.01 ; Encounter for immunization Z23 and Generalized anxiety disorder F41.1 [place] [address] [place] [id number] [address] [place] [address] Feb, Bipolar 1 disorder, mixed F3 1.60 [place] [address] [id number] [address] [place] [address] 26 Feb, 2018 Allergic rhinitis J30.9 [facility] [address] [id number] [address] [place] [address] 24 Feb, 2018 Bipolar 1 disorder, mixed F3 1.60 [facility] [address] [id number] [address] [place] [address] 20 Feb, 2018 Bipolar 1 disorder, mixed F3 1.60 and Generalized anxiety disorder F41.1 [facility] [address] [id number] [address] [place] [address] 13 Feb, 2018 Bipolar 1 disorder, mixed F3 1.60 [facility] [address] [facility] [id number] [address] [place] [address] 11 Feb, 2018 Allergic rhinitis J30.9 [facility] [address] [facility] [id number] [address] [place] [address] 05 Feb, 2018 [facility] [address] [facility] [id number] [address] [place] [address] 31 Jan, 2018 Bipolar 1 disorder, mixed F3 1.60 [facility] [address] [facility] [id number] [address] [place] [address] Jan, Low back pain M54.5 ; Hyperl ipidemia, unspecified hyperlipidemia type E78.5 and Bipolar 1 disorder, mixed F31.60 [facility] [address] [facility] [id number] [address] [place] [address] Jan, Bipolar 1 disorder, mixed F3 1.60 [facility] [address] [facility] [id number] [address] [place] [address] 16 Jan, 2018 Bipolar 1 disorder, mixed F3 1.60 [facility] [address] [facility] [id number] [address] [place] [address] Jan, Bipolar 1 disorder, mixed F3 1.60 [facility] [address] [facility] [id number] [address] [place] [address] Jan, Bipolar 1 disorder, mixed F3 1.60 [facility] [address] [facility] [id number] [address] [place] [address] Dec, Bipolar 1 disorder, mixed F3 1.60 ; Generalized anxiety disorder F41.1 and Other fpc (current) drug therapy Z79.899 [facility] [address] [facility] [id number] [address] [place] [address] Dec, Other fpc (current) dr ug therapy Z79.899 [facility] [address] [facility] [id number] [address] [place], [place] [address] Dec, Bipolar 1 disorder, mixed F3 1.60 [facility] [address] [facility] [id number] [address] [place] [address] Dec, Bipolar 1 disorder, mixed F3 1.60 [facility] [address] [place] [id number] [address] [place] [address] Nov, Bipolar 1 disorder, mixed F3 1.60 [facility] [address] [place] [id number] [address] [place] [address] Nov, Bipolar 1 disorder, mixed F3 1.60 [facility] [address] [place] [id number] [address] [place] [address] Nov, Bipolar 1 disorder, mixed F3 1.60 [facility] [address] [place] [id number] [address] [place] [address] Nov, Allergic rhinitis J30.9 [facility] [address] [place] [id number] [address] [place] [address] Nov, Allergic rhinitis J30.9 [facility] [address] [facility] [id number] [address] [place] [address] Nov, [facility] [address] [place] [id number] [address] [place] [address] Nov, Bipolar 1 disorder, mixed F3 1.60 [facility] [address] [place] [id number] [address] [place] [address] Nov, Fibromyalgia M79.7 and Aller gic rhinitis J30.9 [facility] [address] [address] October, Bipolar 1 disorder, mixed F3 1.60 [facility] [address] [place] [id number] [address] [place] [address] October, Acute nasopharyngitis J00 [facility] [address] [address] October, Bitten or stung by nonvenomo us insect and other nonvenomous arthropods, initial encounter W57.XXXA and Insect bite (nonvenomous) of abdominal wall, initial encounter S30.861A [facility] [address] [place] [id number] [address] [place] [address] October, Insect bite (nonvenomous) of abdominal wall, initial encounter S30.861A ; Bitten or stung by nonvenomous insect and other nonvenomous arthropods, initial encounter W57.XXXA ; Allergic rhinitis J30.9 and Low back pain M54.5 [facility] [address] [address] October, Bipolar 1 disorder, mixed F3 1.60 [facility] [address] [address] October, [facility] [address] [address] October, [facility] [address] [place] [id number] [address] [place] [address] October, Bipolar 1 disorder, mixed F3 1.60 [facility] [address] [address] Sep, Bipolar 1 disorder, mixed F3 1.60 [facility] [address] [place] [id number] [address] [place] [address] Sep, Other chronic pain G89.29 [facility] [address] [facility] [id number] [address] [place] [address] Sep, [facility] [address] [facility] [id number] [address] [place] [phone] Sep, Bipolar 1 disorder, mixed F3 1.60 [facility] [address] [id number] [address] [place] [phone] Sep, Allergic rhinitis J30.9 and Sciatica of left side M54.32 [facility] [address] [facility] [id number] [address] [place] [phone] Sep, Bipolar 1 disorder, mixed F3 1.60 [facility] [address] [id number] [address] [place] [phone] Sep, Bipolar 1 disorder, mixed F3 1.60 and Generalized anxiety disorder F41.1 [facility] [address] [id number] [address] [place] [id number] Aug, [facility] [address] [id number] [address] [place] [phone] Aug, Bipolar 1 disorder, mixed F3 1.60 [facility] [address] [id number] [address] [place] [phone] Aug, Bipolar 1 disorder, mixed F3 1.60 [facility] [address] [id number] [address] [place] [id number] Aug, [facility] [address] [facility] [id number] [address] [place] [id number] Aug, Generalized anxiety disorder F41.1 [facility] [address] [facility] [id number] [address] [place] [phone] Aug, Bipolar 1 disorder, mixed F3 1.60 [facility] [address] [id number] [address] [place] [phone] Aug, Plantar wart of right foot B 07.0 [facility] [address] [id number] [address] [place] [phone] Aug, Bipolar 1 disorder, mixed F3 1.60 [facility] [address] [facility] [id number] [address] [place] [phone] Jul, Bipolar 1 disorder, mixed F3 1.60 [facility] [address] [facility] [id number] [address] [place] [phone] Jul, [facility] [address] [facility] [id number] [address] [place] [phone] Jul, Bipolar 1 disorder, mixed F3 1.60 [facility] [address] N [facility] [id number] [address] [place] [address] Jul, Generalized anxiety disorder F41.1 [facility] [address] [facility] [id number] [address] [place] [address] 07 Jul, 2017 Bipolar 1 disorder, mixed F3 1.60 [facility] [address] [place] [id number] [address] [place] [address] Jul, Acute left-sided low back pa in with left-sided sciatica M54.42 [facility] [address] [facility] [id number] [address] [place] [address] 05 Jul, 2017 Coccydynia M53.3 [facility] [address] [facility] [id number] [address] [place] [address] Jun, Bipolar 1 disorder, mixed F3 1.60 [facility] [address] [facility] [id number] [address] [place] [id number] Jun, Acute nasopharyngitis J00 [facility] [address] [facility] [id number] [address] [place] [address] Jun, Bipolar 1 disorder, mixed F3 1.60 [facility] [address] [facility] [id number] [address] [place] [address] Jun, Fibromyalgia M79.7 [facility] [address] [facility] [id number] [address] [place] [address] Jun, Bipolar 1 disorder, mixed F3 1.60 [facility] [address] [place] [address] 08 Jun, 2017 Fibromyalgia M79.7 and Bipol ar 1 disorder, mixed F31.60 [facility] [address] [place] [id number] [address] [place] [address] May, Bipolar 1 disorder, mixed F3 1.60 ; Generalized anxiety disorder F41.1 and Other fpc (current) drug therapy Z79.899 [place] [id number] [place] [address] May, Bipolar 1 disorder, mixed F3 1.60 [facility]ALK [facility] [address] [address] 14 May, 2017 Cough R05 and Body aches R52 [facility] [address] [address] 10 May, 2017 Bladder spasm N32.89 and Acu te cystitis without hematuria N30.00 [place] [id number] N [address] [place] [address] 07 May, 2017 Bipolar 1 disorder, mixed F3 1.60 [place] [address] [address] Apr, [place] [address] [address] Apr, Major depressive disorder, r ecurrent episode, moderate F33.1 and Encounter for immunization Z23 [facility] [address] [place] [id number] [address] [place] [address] Apr, Bipolar 1 disorder, mixed F3 1.60 [place] [address] [place] [id number] [address] [place] [address] Apr, Bipolar 1 disorder, mixed F3 1.60 [place] [address] [place] [id number] [address] [place] [address] Apr, Bipolar 1 disorder, mixed F3 1.60 [facility] [address] [place] [address] 13 Apr, 2017 Yeast vaginitis B37.3 [facility] [address] [place] [id number] [address] [place] [address] 09 Apr, 2017 Bipolar 1 disorder, mixed F3 1.60 [facility] [address] [place] [address] Apr, Cellulitis L03.[address] for immunization Z23 [facility] [address] [address] Apr, Bipolar 1 disorder, mixed F3 1.60 [place] [address] [place] [address] Mar, Bipolar 1 disorder, mixed F3 1.60 [place] [address] [address] Mar, Bipolar 1 disorder, mixed F3 1.60 [facility] [address] [address] Mar, Imbalance R26.89 and Encount er for immunization Z23 [facility] [address] [place] [id number] [address] [place] [address] Mar, Generalized anxiety disorder F41.1 [place] [address] [address] Mar, Bipolar 1 disorder, mixed F3 1.60 [facility] [address] [address] Mar, Generalized anxiety disorder F41.1 [place] [address] [place] [address] Mar, Bipolar 1 disorder, mixed F3 1.60 [place] [address] [address] Mar, Bipolar 1 disorder, mixed F3 1.60 [facility] [address] [place] [address] 27 Feb, 2017 Bipolar 1 disorder, mixed F3 1.60 [place] [address] [place] [id number] [address] [place] [address] 25 Feb, 2017 Bipolar 1 disorder, mixed F3 1.60 and Generalized anxiety disorder F41.1 [place] [address] [address] 21 Feb, 2017 Gastritis without bleeding, unspecified chronicity, unspecified gastritis type K29.70 ; Hammer toe of right foot M20.41 and Other viral warts B07.8 [place] [address] [address] 20 Feb, 2017 Bipolar 1 disorder, mixed F3 1.60 [place] [address] [address] 13 Feb, 2017 Bipolar 1 disorder, mixed F3 1.60 [place] [address] [place] [id number] [address] [place] [address] 05 Feb, 2017 Bipolar 1 disorder, mixed F3 1.60 [place] [address] [address] 31 Jan, 2017 Encounter for screening mamm ogram for breast cancer Z12.31 ; Other viral warts B07.8 and Allergic rhinitis J30.9 [place] [address] [place] [id number] [address] [place] [address] Jan, Bipolar 1 disorder, mixed F3 1.60 [place] [address] [place] [id number] [address] [place] [address] Jan, Bipolar 1 disorder, mixed F3 1.60 [place] [address] [place] [id number] [address] [place] [address] Jan, [place] [address] [place] [id number] [address] [place] [address] Jan, Bipolar 1 disorder, mixed F3 1.60 [place] [address] [place] [id number] [address] [place] [address] Jan, Bipolar 1 disorder, mixed F3 1.60 [place] [address] [address] Jan, Allergic rhinitis J30.9 ; He maturia R31.9 and Colon cancer screening Z12.11 [place] [address] [address] Dec, Bipolar 1 disorder, mixed F3 1.60 [place] [address] [address] Dec, Bipolar 1 disorder, mixed F3 1.60 ; Generalized anxiety disorder F41.1 and 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.899 [place] [address] [address] Dec, Bipolar 1 disorder, mixed F3 1.60 [place] [address] [address] Dec, Bipolar 1 disorder, mixed F3 1.60 [place] [address] [address] Dec, Bipolar 1 disorder, mixed F3 1.60 [place] [address] [address] Dec, Low back pain M54.5 and Recu rrent urinary tract infection N39.0 [place] [address] [address] Nov, Bipolar 1 disorder, mixed F3 1.60 [place] [address] [address] Nov, Bipolar 1 disorder, mixed F3 1.60 [place] [address] [address] Nov, Bipolar 1 disorder, mixed F3 1.60 [place] [address] [address] Nov, Bipolar 1 disorder, mixed F3 1.60 [place] [address] [address] Nov, [place] [address] [address] Nov, Anesthesia of skin R20.0 ; F requent UTI N39.0 ; Tobacco abuse Z72.0 and Colon cancer screening Z12.11 [place] [address] [address] Nov, Bipolar 1 disorder, mixed F3 1.60 [place] [address] [address] October, Bipolar 1 disorder, mixed F3 1.60 [place] [address] [address] October, Bipolar 1 disorder, mixed F3 1.60 [place] [address] [address] October, Bipolar 1 disorder, mixed F3 1.60 [place] [address] [address] October, Bipolar 1 disorder, mixed F3 1.60 [place] [address] [address] October, Bipolar 1 disorder, mixed F3 1.60 [place] [address] [address] October, Cervicalgia M54.2 and Bipola r 1 disorder, mixed F31.60 [place] [address] [address] October, Hypertension I10 ; Hyperlipi demia, unspecified hyperlipidemia type E78.5 and Family history of thyroid disease Z83.49 [place] [address] [address] October, [facility] [address] [facility] [id number] [address] [place] [address] October, Hypertension I10 ; Hyperlipi demia, unspecified hyperlipidemia type E78.5 and Family history of thyroid problem Z83.49 [place] [address] [place] [id number] [address] [place] [address] October, Bipolar 1 disorder, mixed F3 1.60 [place] [address] [place] [id number] [address] [place] [address] Sep, Bipolar 1 disorder, mixed F3 1.60 [place] [address] [address] Sep, Bipolar 1 disorder, mixed F3 1.60 [place] [address] [address] Sep, Bipolar 1 disorder, mixed F3 1.60 [place] [address] [place] [id number] [address] [place] [address] Sep, History of colon polyps Z86. 010 and Hematochezia K92.1 [place] [address] [place] [id number] [address] [place] [address] Sep, Major depressive disorder, r ecurrent episode, moderate F33.1 [place] [address] [place] [id number] [address] [place] [address] Sep, Bipolar 1 disorder, mixed F3 1.60 [place] [address] [place] [id number] [address] [place] [address] Aug, Hot flashes due to menopause N95.1 [place] [address] [place] [id number] [address] [place] [address] Aug, Bipolar 1 disorder, mixed F3 1.60 [place] [address] [place] [id number] [address] [place] [address] Aug, [place] [address] [address] Aug, Bipolar 1 disorder, mixed F3 1.60 [place] [address] [place] [address] Aug, Bipolar 1 disorder, mixed F3 1.60 [place] [address] [address] Aug, Hot flashes due to menopause N95.1 ; Cervicalgia M54.2 and Ataxia R27.0 [place] [address] [address] Jul, Bipolar 1 disorder, mixed F3 1.60 [place] [address] Jul, Bipolar 1 disorder, mixed F3 1.60 [place] [address] [address] Jul, Bipolar 1 disorder, mixed F3 1.60 [place] [address] [address] Jul, Bipolar 1 disorder, mixed F3 1.60 [place] [address] [address] Jul, Bipolar 1 disorder, mixed F3 1.60 [place] [address] [address] Jul, Cervicalgia M54.2 ; Tremor R 25.1 ; Hearing abnormally acute, unspecified laterality H93.239 ; Alopecia L65.9 ; Encounter for immunization Z23 and Family history of thyroid disease Z83.49 [place] [address] [place] [id number] Jul, Bipolar 1 disorder, mixed F3 1.60 [place] [address] [address] Jun, [place] [address] [place] [address] Jun, Hearing disorder, unspecifie d laterality H93.299 [facility] [address] [facility] [id number] [address] [place] [address] Jun, Bipolar 1 disorder, mixed F3 1.60 [facility] [address] [facility] [id number] [address] [place] [address] Jun, Bipolar 1 disorder, mixed F3 1.60 [facility] [address] [facility] [id number] [address] [place] [address] Jun, Allergic rhinitis J30.9 [facility] [address] [facility] [id number] [address] [place] [address] Jun, Bipolar 1 disorder, mixed F3 1.60 [facility] [address] [place] [id number] [address] [place] [address] Jun, Bipolar 1 disorder, mixed F3 1.60 [facility] [address] [facility] [id number] [address] [place] [address] Jun, Allergic rhinitis J30.9 [facility] [address] [facility] [id number] [address] [place] [address] Jun, Allergic rhinitis J30.9 [facility] [address] [facility] [id number] [address] [place] [address] Jun, Bipolar 1 disorder, mixed F3 1.60 [facility] [address] [facility] [id number] [address] [place] [address] May, Bipolar 1 disorder, mixed F3 1.60 [facility] [address] [facility] [id number] [address] [place] [address] May, Bipolar 1 disorder, mixed F3 1.60 [facility] [address] [facility] [id number] [address] [place] [address] May, [facility] [address] [facility] [id number] [address] [place] [address] May, Bipolar 1 disorder, mixed F3 1.60 [facility] [address] [facility] [id number] [address] [place] [address] May, Bipolar 1 disorder, mixed F3 1.60 [facility] [address] [facility] [id number] [address] [place] [address] May, [facility] [address] [facility] [id number] [address] [place] [address] May, [facility] [address] [facility] [id number] [address] [place] [address] May, [facility] [address] [facility] [id number] [address] [place] [address] May, Abdominal pain, unspecified location R10.9 [facility] [address] [facility] [id number] [address] [place] [address] May, [facility] [address] [place] [id number] [place] [address] Apr, Hematuria R31.9 ; Ataxia R27 .0 and Hearing loss, unspecified laterality H91.90 [facility] [address] [place] [id number] [address] [place] [address] Apr, Bipolar 1 disorder, mixed F3 1.60 [facility] [address] [facility] [id number] [address] [place] [address] Apr, Acute effusion of both middl e ears H65.193 [facility] [address] [facility] [id number] [address] [place] [address] Apr, Hematuria R31.9 and Pyelonep hritis N12 [facility] [address] [facility] [id number] [address] [place] [address] Apr, [facility] [address] [facility] [id number] [address] [place] [address] Mar, Bipolar 1 disorder, mixed F3 1.60 [facility] [address] [place] [id number] [address] [place] [address] Mar, [place] [address] [place] [id number] [address] [place] [address] Mar, Bipolar 1 disorder, mixed F3 1.60 [place] [address] [place] [id number] [address] [place], [place] [address] Mar, Bipolar 1 disorder, mixed F3 1.60 [place] [address] [place] [address] Mar, Encounter for immunization Z 23 and Gastritis without bleeding, unspecified chronicity, unspecified gastritis type K29.70 [place] [address] [place] [id number] [address] [place] [address] Mar, Bipolar 1 disorder, mixed F3 1.60 and Grief F43.20 [place] [address] [place] [id number] [address] [place] [address] Mar, Gastritis without bleeding, unspecified chronicity, unspecified gastritis type K29.70 [place] [address] [place] [id number] [address] [place] [address] Mar, Bipolar 1 disorder, mixed F3 1.60 [place] [address] [place] [address] Mar, Gastritis without bleeding, unspecified chronicity, unspecified gastritis type K29.70 [place] [address] [place] [id number] [address] [place] [address] Mar, [place] [address] [place] [id number] [address] [place] [address] Feb, Bipolar 1 disorder, mixed F3 1.60 [place] [address] [place] [id number] [address] [place] [address] Feb, Bipolar 1 disorder, mixed F3 1.60 and Grief F43.20 [place] [address] [place] [id number] [address] [place] [address] Feb, Gastritis without bleeding, unspecified chronicity, unspecified gastritis type K29.70 [facility] [address] [place] [id number] [address] [place] [address] 14 Feb, 2016 Bipolar 1 disorder, mixed F3 1.60 [facility] [address] [place] [id number] [address] [place] [address] Feb, Gastroesophageal reflux dise ase, esophagitis presence not specified K21.9 [facility] [address] [place] [id number] [address] [place] [address] Jan, Bipolar 1 disorder, mixed F3 1.60 [facility] [address] [place] [id number] [address] [place] [address] Jan, Bipolar 1 disorder, mixed F3 1.60 and Unsteady gait R26.81 [place] [address] [place] [id number] [address] [place] [address] Jan, Bipolar 1 disorder, mixed F3 1.60 [place] [address] [address] Jan, Bipolar 1 disorder, mixed F3 1.60 and Other fpc (current) drug therapy Z79.899 [place] [address] [place] [address] Jan, Bipolar 1 disorder, mixed F3 1.60 [facility] [address] [address] Jan, Bipolar 1 disorder, mixed F3 1.60 [facility] [address] [place] [address] Jan, Bipolar 1 disorder, mixed F3 1.60 ; Grief F43.20 and Other fpc (current) drug therapy Z79.899 [place] [address] [place] [id number] [address] [place], [place] [address] Jan, Bipolar 1 disorder, mixed F3 1.60 [facility] [address] [place] [id number] [address] [place] [address] Dec, [facility] [address] [place] [address] Dec, Bipolar 1 disorder, mixed F3 1.60 ; Vitamin D deficiency, unspecified E55.9 ; H/O allergic rhinitis Z87.09 ; Other chronic pain G89.29 and Dorsalgia, unspecified M54.9 [facility] [address] [place] [address] Dec, [facility] [address] [place] [address] Dec, Bipolar 1 disorder, mixed F3 1.60 [place] [address] [address] Dec, Major depressive disorder, r ecurrent episode, moderate F33.1 [place] [address] [address] Dec, Major depressive disorder, r ecurrent episode, moderate F33.1 [facility] [address] [place] [id number] [address] [place] [address] Nov, [place] [address] [address] Nov, Bipolar 1 disorder, mixed F3 1.60 [place] [address] [place] [id number] [address] [place] [address] Nov, Major depressive disorder, r ecurrent episode, moderate F33.1 [place] [address] [place] [address] Nov, Cervicalgia M54.2 ; Arthralg ia of hip, unspecified laterality M25.559 ; Allergic rhinitis J30.9 and Hormone replacement therapy Z79.890 [facility] [address] [place] [id number] [address] [place] [address] Nov, Other seasonal allergic rhin itis J30.2 [facility] [address] [place] [id number] [address] [place] [address] October, Major depressive disorder, r ecurrent episode, moderate F33.1 [place] [id number] [id number] [address] [place] [address] October, Major depressive disorder, r ecurrent episode, moderate F33.1 and Arthralgia of hip, unspecified laterality M25.559 [place] [address] [facility] [id number] [address] [place] [address] October, Grief F43.20 ; Hypertension I10 ; Hyperlipidemia, unspecified hyperlipidemia type E78.5 ; Other chronic pain G89.29 and Allergic rhinitis, unspecified allergic rhinitis type J30.9 [place] [address] [id number] [address] [place] [phone] October, Major depressive disorder, r ecurrent episode, moderate F33.1 [place] [address] [facility] [id number] [address] [place] [phone] Sep, Major depressive disorder, r ecurrent episode, moderate F33.1 [place] [address] [id number] [address] [place] [phone] Sep, [place] [address] [facility] [id number] [address] [place] [phone] Sep, Major depressive disorder, r ecurrent episode, moderate F33.1 [place] [address] [place] [id number] [address] [place] [phone] Sep, Grief F43.20 [place] [address] [facility] [id number] [address] [place] [phone] Aug, Major depressive disorder, r ecurrent episode, moderate F33.1 [place] [address] [facility] [id number] [address] [place] [phone] Aug, Bipolar 1 disorder, mixed F3 1.60 [place] [address] [id number] [address] [place] [phone] Aug, Allergic rhinitis J30.9 ; Ce rvicalgia M54.2 and Low back pain M54.5 [facility] [address] [facility] [id number] [address] [place] [phone] Aug, Major depressive disorder, r ecurrent episode, moderate F33.1 [facility] [address] [facility] [id number] [address] [place] [phone] Aug, Sinusitis J32.9 and Tobacco dependence F17.200 [facility] [address] [place] [id number] [address] [place] [id number] Aug, [facility] [address] [place] [id number] [place] [id number] Aug, Depressive disorder, not els ewhere classified F32.9 ; Hormone replacement therapy Z79.[address] scan, head R93.0 [facility] [address] [place] [id number] [place] [phone] Aug, Major depressive disorder, r ecurrent episode, moderate F33.1 [facility] [address] [place] [id number] [address] [place] [id number] Jul, Major depressive disorder, r ecurrent episode, moderate F33.1 [facility] [address] [place] [id number] [address] [place] [phone] Jul, Abdominal pain R10.9 and Hyp ertension I10 [facility] [address] [facility] [id number] [address] [place] [phone] Jul, [facility] [address] [place] [id number] [address] [place] [phone] Jul, Major depressive disorder, r ecurrent episode, moderate F33.1 [facility] [address] [place] [id number] [address] [place] [phone] Jul, [facility] [address] [place] [id number] [address] [place] [phone] Jul, [facility] [address] [place] [id number] [address] [place] [phone] Jun, [facility] [address] [id number] [address] [place] [phone] Jun, Depressive disorder, not els ewhere classified F32.9 [facility] [address] [id number] [address] [place] [place] [phone] Jun, [facility] [address] [facility] [id number] [address] [place] [phone] Jun, [facility] [address] [facility] [id number] [address] [place] [phone] Jun, Arthralgia of hip, unspecifi ed laterality M25.559 ; Bruising, spontaneous R23.3 and Night sweats R61 [facility] [address] [facility] [id number] [address] [place] [phone] Jun, [facility] [address] [place] [id number] [address] [place] [phone] Jun, [facility] [address] [facility] [id number] [address] [place] [phone] May, [facility] [address] [place] [id number] [address] [place] [phone] May, Myalgia M79.1 and Screening, lipid Z13.220 [facility] [address] [facility] [id number] [address] [place] [phone] Apr, Status post cervical spinal fusion Z98.1 ; Fibromyalgia M79.7 and Unsteady gait R26.81 [facility] [address] [id number] [address] [place] [phone] Nov, [facility] [address] [facility] [id number] [address] [place] [phone] Nov, [facility] [address] [facility] [id number] [address] [place] [phone] October, [facility] [address] [place] [id number] [address] [place] [phone] October, [facility] [address] [id number] [address] [place] [phone] October, [facility] [address] [id number] [address] [place] [phone] October, [facility] [address] [id number] [address] [place] [phone] October, [facility] [address] [id number] [address] [place] [phone] October, Dysuria 788.1 ; Nausea 787.0 2 and Urinary tract infection 599.0 [facility] [address] [id number] [address] [place] [phone] Sep, [facility] [address] [id number] [address] [place] [phone] Sep, [facility] [address] [id number] [address] [place] [phone] Aug, [facility] [address] [id number] [address] [place] [phone] Aug, [facility] [address] [id number] [address] [place] [address], [place] [id number] Aug, [facility] [address] [id number] [address] [place] [phone] Aug, [facility] [address] [id number] [address] [place] [address], [place] [id number] Aug, [facility] [address] [id number] [address] [place] [phone] Aug, [facility] [address] [id number] [address] [place] [address], [place] [id number] Aug, [facility] [address] [id number] [address] [place] [phone] Aug, [facility] [address] [id number] [address] [place] [phone] Aug, [facility] [address] [id number] [facility] [place] [id number] 18 Aug, 2014 [facility] [address] [id number] [address] [place] [address], [place] [id number] 18 Aug, 2014 [facility] [address] [id number] [address] [place] [address], [place] [id number] 13 Aug, 2014 [facility] [address] [id number] [address] [place] [address], [place] [id number] 13 Aug, 2014 [facility] [address] [id number] [address] [place] [address], [place] [id number] Aug, [facility] [address] [id number] [address] [place] [address], [place] [id number] Aug, [facility] [address] [id number] [address] [place] [address], [place] [id number] Aug, [facility] [address] [id number] [address] [place] [address], [place] [id number] Aug, [facility] [address] [id number] [address] [place] [address], [place] [id number] 05 Aug, 2014 [facility] [address] [id number] [address] [place] [address], [place] [id number] 05 Aug, 2014 [facility] [address] [id number] [address] [place] [address], [place] [id number] Aug, [facility] [address] [id number] [address] [place] [address], [place] [id number] Aug, [facility] [address] [id number] [address] [place] [address], [place] [id number] Aug, [facility] [address] [id number] [address] [place] [address], [place] [id number] Jul, [facility] [address] [id number] [address] [place] [address], [place] [id number] Jul, [facility] [address] [id number] [address] [place] [address], [place] [id number] Jul, 2014 [facility] [address] [id number] [address] [place] [address], [place] [id number] Jul, 2014 [facility] [address] [id number] [address] [place] [address], [place] [id number] Jul, 2014 [facility] [address] [id number] [address] [place] [address], [place] [id number] Jul, 2014 [facility] [address] [id number] [address] [place] [address], [place] [id number] Jul, 2014 [facility] [address] [id number] [address] [place] [address], [place] [id number] Jul, 2014 [facility] [address] [id number] [address] [place] [address], [place] [id number] Jul, 2014 [facility] [address] [id number] [address] [place] [address], [place] [id number] Jul, 2014 [facility] [address] [id number] [address] [place] [address], [place] [id number] Jul, [facility] [address] [id number] [address] [place] [address], [place] [id number] Jul, [facility] [address] [id number] [address] [place] [address], [place] [id number] Jul, [facility] [address] [id number] [address] [place] [address], [place] [id number] Jul, [facility] [address] [id number] [address] [place] [address], [place] [id number] Jun, [facility] [address] [id number] [address] [place] [address], [place] [id number] Jun, [facility] [address] [id number] [address] [place] [phone] Jun, [facility] [address] [id number] [address] [place] [phone] Jun, [facility] [address] [id number] [address] [place] [address], [place] [id number] Jun, [facility] [address] [id number] [address] [place] [address], [place] [id number] Jun, [facility] [address] [id number] [address] [place] [address], [place] [id number] May, [facility] [address] [id number] [address] [place] [address], [place] [id number] May, [facility] [address] [id number] [address] [place] [address], [place] [id number] May, [facility] [address] [id number] [address] [place] [address], [place] [id number] May, [facility] [address] [id number] [address] [place] [address], [place] [id number] May, [facility] [address] [id number] [address] [place] [address], [place] [id number] May, [facility] [address] [id number] [address] [place] [address], [place] [address] Apr, [facility] [address] [id number] [address] [place] [address], [place] [id number] Apr, [facility] [address] [id number] [address] [place] [address], [place] [id number] Apr, [facility] [address] [id number] [address] [place] [address], [place] [id number] Apr, [facility] [address] [id number] [address] [place] [address], [place] [id number] Apr, [facility] [address] [id number] [address] [place] [address], [place] [id number] Apr, [facility] [address] [id number] [address] [place] [address], [place] [id number] Mar, [facility] [address] [id number] [address] [place] [address], [place] [id number] Mar, 2013 [facility] [address] [id number] [address] [place] [address], [place] [id number] Mar, 2013 [facility] [address] [id number] [address] [place] [address], [place] [id number] Mar, 2013 [facility] [address] [id number] [address] [place] [address], [place] [id number] Mar, 2013 [facility] [address] [id number] [address] [place] [address], [place] [id number] Mar, 2013 [facility] [address] [id number] [address] [place] [address], [place] [id number] Mar, 2013 [facility] [address] [id number] [address] [place] [address], [place] [id number] Mar, 2013 [facility] [address] [id number] [address] [place] [address], [place] [id number] Mar, 2013 [facility] [address] [id number] [address] [place] [address], [place] [id number] Mar, [facility] [address] [id number] [address] [place] [address], [place] [id number] Mar, [facility] [address] [id number] [address] [place] [address], [place] [id number] Mar, [facility] [address] [id number] [address] [place] [address], [place] [id number] 30 Feb, 2013 [facility] [address] [id number] [address] [place] [address], [place] [id number] 29 Sep, 2013 [facility] [address] [id number] [address] [place] [address], [place] [id number] 29 Feb, 2013 [facility] [address] [id number] [address] [place] [address], [place] [id number] 23 Feb, 2013 [facility] [address] [id number] [address] [place] [address], [place] [id number] Feb, [facility] [address] [id number] [address] [place] [address], [place] [id number] Feb, [facility] [address] [id number] [address] [place] [address], [place] [id number] Feb, [facility] [address] [id number] [address] [place] [address], [place] [address] Jan, [facility] [address] [id number] [address] [place] [address], [place] [id number] Jan, [facility] [address] [id number] [address] [place] [address], [place] [id number] Jan, [facility] [address] [id number] [address] [place] [address], [place] [id number] Dec, [facility] [address] [id number] [address] [place] [address], [place] [id number] Dec, [facility] [address] [id number] [address] [place] [address], [place] [id number] Dec, [facility] [address] [id number] [address] [place] [address], [place] [address] Dec, [facility] [address] [id number] [address] [place] [address], [place] [id number] Sep, [facility] [address] [id number] [address] [place] [address], [place] [id number] Sep, [facility] [address] [id number] [address] [place] [address], [place] [id number] Sep, [facility] [address] [id number] [address] [place] [address], [place] [id number] Sep, [facility] [address] [id number] [address] [place] [address], [place] [address] Sep, [facility] [address] [id number] [address] [place] [address], [place] [id number] Sep, [facility] [address] [id number] [address] [place] [address], [place] [id number] Sep, [facility] [address] [id number] [address] [place] [address], [place] [id number] Sep, [facility] [address] [id number] [address] [place] [address], [place] [id number] Aug, [facility] [address] [id number] [address] [place] [address], [place] [id number] Aug, [facility] [address] [id number] [address] [place] [address], [place] [id number] May, [facility] [address] [id number] [address] [place] [address], [place] [id number] May, [facility] [address] [id number] [address] [place] [address], [place] [address] Apr, [facility] [address] [id number] [address] [place] [address], [place] [id number] Apr, [facility] [address] [id number] [address] [place] [address], [place] [id number] Apr, [facility] [address] [id number] [address] [place] [address], [place] [id number] Apr, [facility] [address] [id number] [address] [place] [address], [place] [id number] Apr, [facility] [address] [id number] [address] [place] [address], [place] [id number] Apr, [facility] [address] [id number] [address] [place] [address], [place] [id number] May, [facility] [address] [id number] [address] [place] [address], [place] [id number] May, [facility] [address] [id number] [address] [place] [address], [place] [id number] May, [facility] [address] [id number] [address] [place] [address], [place] [id number] May, [facility] [address] [id number] [address] [place] [address], [place] [id number] 13 May, 2012 [facility] [address] [id number] [address] [place] [address], [place] [id number] 13 May, 2012 [facility] [address] [id number] [address] [place] [address], [place] [id number] 13 Apr, 2012 [facility] [address] [id number] [address] [place] [address], [place] [address] Apr, [facility] [address] [id number] [address] [place] [address], [place] [id number] Apr, [facility] [address] [id number] [address] [place] [address], [place] [id number] Apr, [facility] [address] [id number] [address] [place] [address], [place] [id number] Apr, [facility] [address] [id number] [address] [place] [address], [place] [id number] Apr, [facility] [address] [id number] [address] [place] [address], [place] [address] Apr, [facility] [address] [id number] [address] [place] [address], [place] [id number] Apr, [facility] [address] [id number] [address] [place] [address], [place] [id number] Apr, [facility] [address] [id number] [address] [place] [address], [place] [address] Apr, [facility] [address] [id number] [address] [place] [address], [place] [id number] Mar, [facility] [address] [id number] [address] [place] [address], [place] [id number] Mar, [facility] [address] [id number] [address] [place] [address], [place] [id number] Mar, [facility] [address] [id number] [address] [place] [address], [place] [address] Mar, [facility] [address] [id number] [address] [place] [address], [place] [address] Mar, [facility] [address] [id number] [address] [place] [address], [place] [id number] Mar, [facility] [address] [id number] [address] [place] [address], [place] [id number] Mar, [facility] [address] [id number] [address] [place] [address], [place] [id number] Mar, [facility] [address] [id number] [address] [place] [address], [place] [id number] Mar, [facility] [address] [id number] [address] [place] [address], [place] [id number] Feb, [facility] [address] [id number] [address] [place] [address], [place] [id number] 16 Feb, 2012 [facility] [address] [id number] [address] [place] [address], [place] [id number] Feb, [facility] [address] [id number] [address] [place] [address], [place] [id number] Jan, [facility] [address] [id number] [address] [place] [address], [place] [address] Jan, [facility] [address] [id number] [address] [place] [address], [place] [id number] Jan, [facility] [address] [id number] [address] [place] [address], [place] [address] Jan, [facility] [address] [id number] [address] [place] [address], [place] [id number] Jan, [facility] [address] [id number] [address] [place] [address], [place] [id number] Jan, [facility] [address] [id number] [address] [place] [address], [place] [id number] Jan, [facility] [address] [id number] [address] [place] [address], [place] [id number] Jan, [facility] [address] [id number] [address] [place] [address], [place] [id number] Jan, [facility] [address] [id number] [address] [place] [address], [place] [id number] Jan, [facility] [address] [id number] [address] [place] [address], [place] [id number] Dec, [facility] [address] [id number] [address] [place] [address], [place] [id number] Dec, [facility] [address] [id number] [address] [place] [address], [place] [id number] Dec, [facility] [address] [id number] [address] [place] [address], [place] [id number] Dec, [facility] [address] [id number] [address] [place] [address], [place] [id number] Nov, [facility] [address] [id number] [address] [place] [address], [place] [id number] Nov, [facility] [address] [id number] [address] [place] [address], [place] [id number] Nov, [facility] [address] [id number] [address] [place] [address], [place] [id number] October, [facility] [address] [id number] [address] [place] [address], [place] [id number] October, [facility] [address] [id number] [address] [place] [address], [place] [id number] October, [facility] [address] [id number] [address] [place] [address], [place] [id number] October, [facility] [address] [id number] [address] [place] [address], [place] [id number] October, [facility] [address] [id number] [address] [place] [address], [place] [id number] October, [facility] [address] [id number] [address] [place] [id number] Aug, [facility] [address] [id number] [address] [place] [phone] Mar, [facility] [address] [id number] [address] [place] [id number] Nov, [facility] [address] [id number] [address] [place] [id number] May, [facility] [address] [id number] [address] [place] [id number] May, [facility] [address] [facility] [id number] [address] [place] [id number] Apr, [facility] [address] [facility] [id number] [address] [place] [phone] Mar, [facility] [address] [facility] [id number] [address] [place] [phone] Mar, IMMUNIZATIONS No Known Immunizations SOCIAL HISTORY Never Assessed REASON FOR VISIT PLAN OF CARE VITAL SIGNS Height 64 in 2014-08-07 Weight 149.49 lbs 2014-08-07 Temperature 99.3 degrees Fahrenheit 2014-08-07 Heart Rate 70 bpm 2014-08-07 Respiratory Rate 18 2014-08-07 Blood pressure systolic 122 mmHg 2014-08-07 Blood pressure diastolic 80 mmHg 2014-08-07 MEDICATIONS Unknown Medications RESULTS No Results PROCEDURES Procedure Date Ordered Result Body Site INFLUENZA ASSAY W/OPTIC Aug 07, 2014 URINALYSIS, AUTO, W/O SCOPE Aug 07, 2014 INSTRUCTIONS MEDICATIONS ADMINISTERED No Known Medications [...]
--- OUTSIDE RECORDS SUMMARY | 2020-02-02 19:41 | XMS REPORT ---
Author Author Sydnie HANCOCK [facility] Address [address] [place] [address] Care Team Providers Care Supervisor [employer] Name Role Phone NAHOMY HANCOCK Unavailable PROBLEMS Type Condition ICD9-CM Code SFK56-QL Code Onset Dates Condition S tatus SNOMED Code Problem Bruising, spontaneous R23.3 Active 708847580 Problem Arthralgia of hip, unspecified laterality M25.559 Active 26229404 Problem Night sweats R61 Active 9538564 0 Problem Grief F43.20 Active 06917995 Problem Hypertension I10 Active 2179631 3 Problem Hyperlipidemia, unspecified hyperlipidemia type E7 8.5 Active 15631376 Problem Other chronic pain G89.29 Active 8 0792291 Problem Bladder spasm N32.89 Active 751354 006 Problem Age-related osteoporosis without current pathological fracture M81.0 Active 16356803 Problem Fibromyalgia M79.7 Active 9470407 7 Problem Hormone replacement therapy Z79.890 Ac tive 665237859 Problem Sensorineural hearing loss (SNHL) of both ears H90 .3 Active 072942805 Problem Abnormal CT scan, head R93.0 Active 742823385 Problem Allergic rhinitis J30.9 Active 61 518695 Problem Hearing loss, unspecified laterality H91.90 Active 71068580 Problem Generalized anxiety disorder F41.1 A ctive 75605611 Problem History of colon polyps Z86.010 Active 722677211 Problem Hammer toe of right foot M20.41 Activ e 016918492 Problem Hematuria, unspecified type R31.9 Ac tive 84944488 Problem Major depressive disorder, recurrent episode, moderate F33.1 Active 331557528 Problem Imbalance R26.89 Active 574539065 Problem Acute left-sided low back pain with left-sided sciatica M54.42 Active 826688083 Problem Sciatica of left side M54.32 Active 62113725 Problem Plantar wart of right foot B07.0 Act mitchell [id number] Problem Hearing loss, unspecified hearing loss type, uns pecified laterality H91.90 Active 85457405 Problem Bipolar 1 disorder, mixed F31.60 Acti ve 33562733 Problem Osteoporotic compression fracture of spine with delayed healing M80.88XG Active 62530898 Problem Gastritis without bleeding, unspecified chronicity, unspecified gastritis type K29.70 Active 685477479 Problem Ataxia R27.0 Active 54373613 Problem Slow transit constipation K59.01 Acti ve 81021381 Problem Tobacco use disorder F17.200 Active 665130004 Problem Post menopausal syndrome N95.1 Activ e 917225220 Problem Sciatica of right side M54.31 Active 75240334 ALLERGIES No Information ENCOUNTERS Encounter Location Date Diagnosis [place] [address] [address] Dec, [place] [address] [address] Sep, [place] [address] [address] 15 Sep, 2019 Compression fracture of L1 v ertebra, sequela S32.010S ; Tobacco use disorder F17.200 ; Age-related osteoporosis with current pathological fracture with routine healing, subsequent encounter M80.00XD ; Allergic rhinitis J30.9 ; Generalized anxiety disorder F41.1 and Recurrent UTI N39.0 [place] [address] [address] [place] [id number] [place] [address] 14 Sep, 2019 Bipolar 1 disorder, mixed F3 1.60 ; Generalized anxiety disorder F41.1 and Tobacco use disorder F17.200 [place] [id number] [facility] [id number] [address] [place] [address] 13 Sep, 2019 [place] [address] [place] [id number] [address] [place] [address] 08 Sep, 2019 Bipolar 1 disorder, mixed F3 1.60 [place] [address] [place] [id number] [place] [address] Aug, [place] [address] [place] [id number] [address] [place] [address] 23 Aug, 2019 Yeast vaginitis B37.3 [facility] [address] [place] [address] 14 Aug, 2019 Vaginal discharge N89.8 [facility] [id number] [place] [address] 10 Aug, 2019 Bipolar 1 disorder, mixed F3 1.60 [facility] [address] [address] 04 Aug, 2019 Age-related osteoporosis wit h current pathological fracture with routine healing, subsequent encounter M80.00XD [place] [address] 24 Jul, 2019 Age-related osteoporosis wit h current pathological fracture with routine healing, subsequent encounter M80.00XD [facility] [address] [address] 24 Jul, 2019 Osteoporotic compression fra cture of spine with delayed healing M80.88XG and Tobacco use disorder F17.200 [place] [address] [address] 11 Jul, 2019 Bipolar 1 disorder, mixed F3 1.60 [facility] [address] [address] 07 Jul, 2019 [facility] [address] [address] Jul, Tobacco use disorder F17.200 [place] [address] [address] [place] [id number] [address] [place] [address] Jun, Bipolar 1 disorder, mixed F3 1.60 [facility] [address] [place] [id number] Jun, Bipolar 1 disorder, mixed F3 1.60 ; Generalized anxiety disorder F41.1 and Tobacco use disorder F17.200 [facility] [address] [place] [address] Jun, Tobacco use disorder F17.200 [facility] [address] [id number] [address] [place] [address] May, [facility] [address] [id number] [address] [place] [address] May, Compression fracture of L1 v ertebra with routine healing, subsequent encounter S32.010D [facility] [address] [id number] [address] [place] [address] May, [facility] [address] [id number] [address] [place] [address] May, [facility] [address] [facility] [id number] [address] [place] [address] May, [facility] [address] [facility] [id number] [address] [place] [address] May, [facility] [address] [facility] [id number] [address] [place] [address] May, [facility] [address] [id number] [address] [place] [address] May, [facility] [address] [facility] [id number] [address] [place] [address] May, [facility] [address] [facility] [id number] [address] [place] [address] May, Bipolar 1 disorder, mixed F3 1.60 [facility] [address] [id number] [address] [place] [address] May, Closed fracture of right upp er extremity with routine healing, subsequent encounter S42.301D and Hearing loss, unspecified hearing loss type, unspecified laterality H91.90 [facility] [address] [facility] [id number] [address] [place] [address] May, [facility] [address] [facility] [id number] [address] [place] [address] Apr, Allergic rhinitis J30.9 ; Ab dominal pain, unspecified location R10.9 and Seborrheic keratosis L82.1 [place] [address] [address] Mar, Bipolar 1 disorder, mixed F3 1.60 [place] [address] [address] Mar, Bipolar 1 disorder, mixed F3 1.60 ; Generalized anxiety disorder F41.1 and Tobacco use disorder F17.200 [place] [address] [address] Feb, Excessive gas R14.3 ; Other chronic pain G89.29 ; Encounter for immunization Z23 ; Hyperlipidemia, unspecified hyperlipidemia type E78.5 ; Bipolar 1 disorder, mixed F31.60 and 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 [place] [address] [address] Feb, Bipolar 1 disorder, mixed F3 1.60 [place] [address] [address] Jan, Sciatica of right side M54.3 1 ; Low back pain M54.5 and Major depressive disorder, recurrent episode, moderate F33.1 [place] [address] [address] Jan, Bipolar 1 disorder, mixed F3 1.60 [place] [address] [address] Dec, Normal pelvic exam Z01.419 [place] [address] [address] Dec, Bipolar 1 disorder, mixed F3 1.60 [place] [address] [place] [id number] [place] [address] Nov, Bipolar 1 disorder, mixed F3 1.60 [place] [address] [place] [address] Nov, Bipolar 1 disorder, mixed F3 1.60 ; Generalized anxiety disorder F41.1 ; Tobacco use disorder F17.200 and 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 [facility] [address] [facility] [id number] [address] [place] [address] Nov, [facility] [address] [place] [id number] [address] [place] [address] Nov, Bipolar 1 disorder, mixed F3 1.60 [facility] [address] [place] [id number] [address] [place] [address] October, Bipolar 1 disorder, mixed F3 1.60 [place] [address] [place] [id number] [address] [place] [address] October, Bipolar 1 disorder, mixed F3 1.60 [place] [address] [place] [id number] [address] [place] [address] October, [facility] [address] [place] [id number] [address] [place] [address] October, Bipolar 1 disorder, mixed F3 1.60 ; Generalized anxiety disorder F41.1 and Tobacco use disorder F17.200 [id number] [place] [id number] [address] [place] [address] Sep, [facility] [address] [place] [id number] [address] [place] [address] Sep, [facility] ; Major depressive disorder, recurrent episode, moderate F33.1 ; Allergic rhinitis J30.9 ; Bipolar 1 disorder, mixed F31.60 ; Fibromyalgia M79.7 ; Hyperlipidemia, unspecified hyperlipidemia type E78.5 ; Hormone replacement therapy Z79.890 ; Encounter for screening for lung cancer Z12.2 and Tobacco use disorder F17.200 [facility] [address] [place] [id number] [address] [place] [address] Sep, Bipolar 1 disorder, mixed F3 1.60 [facility] [address] [address] Sep, Other chronic pain G89.29 ; Hyperlipidemia, unspecified hyperlipidemia type E78.5 ; Breast cancer screening Z12.31 and Post menopausal syndrome N95.1 [place] [address] [address] 16 Sep, 2018 Bipolar 1 disorder, mixed F3 1.60 [place] [address] [address] Sep, Bipolar 1 disorder, mixed F3 1.60 ; Generalized anxiety disorder F41.1 and Tobacco use disorder F17.200 [place] [address] [place] [address] Sep, Gastritis without bleeding, unspecified chronicity, unspecified gastritis type K29.70 [place] [address] [address] Sep, Exercise counseling Z71.82 [place] [address] [address] Aug, Exercise counseling Z71.82 [place] [address] [address] Aug, Bipolar 1 disorder, mixed F3 1.60 [place] [address] [address] Aug, Exercise counseling Z71.82 [place] [address] [address] Aug, Bipolar 1 disorder, mixed F3 1.60 [place] [address] [address] 18 Aug, 2018 Gastritis without bleeding, unspecified chronicity, unspecified gastritis type K29.70 ; Tobacco abuse Z72.0 ; Generalized anxiety disorder F41.1 and Weight gain R63.5 [place] [address] [address] Aug, Bipolar 1 disorder, mixed F3 1.60 ; Generalized anxiety disorder F41.1 and Tobacco use disorder F17.200 [facility] [address] [facility] [id number] [address] [place] [address] Jul, Bipolar 1 disorder, mixed F3 1.60 [facility] [address] [facility] [id number] [address] [place] [address] Jul, [facility] [address] [facility] [id number] [address] [place] [address] Jul, Bipolar 1 disorder, mixed F3 1.60 [facility] [address] [facility] [id number] [address] [place] [address] Jul, Allergic rhinitis J30.9 ; Ma darion depressive disorder, recurrent episode, moderate F33.1 and Tobacco dependence F17.200 [facility] [address] [place] [id number] [address] [place] [address] Jun, [facility] [address] [facility] [id number] [address] [place] [address] Jun, [facility] [address] [facility] [id number] [address] [place] [address] Jun, Bipolar 1 disorder, mixed F3 1.60 [facility] [address] [place] [id number] [address] [place] [address] Jun, Bipolar 1 disorder, mixed F3 1.60 [facility] [address] [facility] [id number] [address] [place] [address] Jun, Bipolar 1 disorder, mixed F3 1.60 [facility] [address] [facility] [id number] [address] [place] [address] Jun, Generalized anxiety disorder F41.1 ; Tobacco abuse Z72.0 and Major depressive disorder, recurrent episode, moderate F33.1 [facility] [address] [facility] [id number] [address] [place] [address] May, Bipolar 1 disorder, mixed F3 1.60 [facility] [address] [facility] [id number] [address] [place] [address] May, Bipolar 1 disorder, mixed F3 1.60 and Generalized anxiety disorder F41.1 [facility] [address] [facility] [id number] [address] [place] [address] May, Bipolar 1 disorder, mixed F3 1.60 [facility] [address] [facility] [id number] [address] [place] [address] May, Allergic rhinitis J30.9 [facility] [address] [facility] [id number] [address] [place] [address] May, Bipolar 1 disorder, mixed F3 1.60 [place] [address] [place] [id number] [address] [place] [address] May, [place] [address] [place] [id number] [address] [place] [address] Apr, Allergic rhinitis J30.9 ; Dy sfunction of both eustachian tubes H69.83 ; History of bladder surgery Z98.890 and Cervicalgia M54.2 [place] [address] [place] [id number] [address] [place] [address] Mar, Bipolar 1 disorder, mixed F3 1.60 [place] [address] [place] [id number] [address] [place] [address] Mar, [place] [address] [place] [id number] [place] [address] Mar, Slow transit constipation K5 9.01 ; Encounter for immunization Z23 and Generalized anxiety disorder F41.1 [facility] [address] [facility] [id number] [address] [place] [address] Feb, Bipolar 1 disorder, mixed F3 1.60 [facility] [address] [place] [id number] [address] [place] [address] Feb, Allergic rhinitis J30.9 [facility] [address] [place] [id number] [address] [place] [address] Feb, Bipolar 1 disorder, mixed F3 1.60 [facility] [address] [facility] [id number] [address] [place] [address] 20 Feb, 2018 Bipolar 1 disorder, mixed F3 1.60 and Generalized anxiety disorder F41.1 [facility] [address] [facility] [id number] [address] [place] [address] 13 Feb, 2018 Bipolar 1 disorder, mixed F3 1.60 [facility] [address] [facility] [id number] [address] [place] [address] 11 Feb, 2018 Allergic rhinitis J30.9 [facility] [address] [facility] [id number] [address] [place] [address] 05 Feb, 2018 [facility] [address] [place] [id number] [address] [place] [address] Jan, Bipolar 1 disorder, mixed F3 1.60 [facility] [address] [place] [id number] [address] [place] [address] Jan, Low back pain M54.5 ; Hyperl ipidemia, unspecified hyperlipidemia type E78.5 and Bipolar 1 disorder, mixed F31.60 [facility] [address] [place] [id number] [address] [place] [address] Jan, Bipolar 1 disorder, mixed F3 1.60 [facility] [address] [place] [id number] [address] [place] [address] Jan, Bipolar 1 disorder, mixed F3 1.60 [facility] [address] [place] [id number] [address] [place] [address] Jan, Bipolar 1 disorder, mixed F3 1.60 [facility] [address] [facility] [id number] [address] [place] [address] Jan, Bipolar 1 disorder, mixed F3 1.60 [facility] [address] [facility] [id number] [address] [place] [address] Dec, Bipolar 1 disorder, mixed F3 1.60 ; Generalized anxiety disorder F41.1 and 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.899 [facility] [address] [facility] [id number] [address] [place] [address] Dec, Other prison (current) dr steward therapy Z79.899 [facility] [address] [facility] [id number] [address] [place] [address] Dec, Bipolar 1 disorder, mixed F3 1.60 [facility] [address] [facility] [id number] [address] [place] [address] Dec, Bipolar 1 disorder, mixed F3 1.60 [facility] [address] [facility] [id number] [address] [place] [address] Nov, Bipolar 1 disorder, mixed F3 1.60 [facility] [address] [facility] [id number] [address] [place] [address] Nov, Bipolar 1 disorder, mixed F3 1.60 [facility] [address] [place] [id number] [address] [place] [address] Nov, Bipolar 1 disorder, mixed F3 1.60 [facility] [address] [facility] [id number] [address] [place] [address] Nov, Allergic rhinitis J30.9 [facility] [address] [facility] [id number] [address] [place] [address] Nov, Allergic rhinitis J30.9 [facility] [address] [facility] [id number] [address] [place] [address] Nov, [facility] [address] [facility] [id number] [address] [place] [address] Nov, Bipolar 1 disorder, mixed F3 1.60 [facility] [address] [facility] [id number] [address] [place] [address] Nov, Fibromyalgia M79.7 and Aller gic rhinitis J30.9 [facility] [address] [facility] [id number] [address] [place] [address] October, Bipolar 1 disorder, mixed F3 1.60 [facility] [address] [facility] [id number] [address] [place] [address] October, [facility] J00 [facility] [address] [facility] [id number] [address] [place] [address] October, Bitten or stung by nonvenomo us insect and other nonvenomous arthropods, initial encounter W57.XXXA and Insect bite (nonvenomous) of abdominal wall, initial encounter S30.861A [facility] [address] [facility] [id number] [address] [place] [address] October, Insect bite (nonvenomous) of abdominal wall, initial encounter S30.861A ; Bitten or stung by nonvenomous insect and other nonvenomous arthropods, initial encounter W57.XXXA ; Allergic rhinitis J30.9 and Low back pain M54.5 [facility] [address] [place] [id number] [address] [place] [address] October, Bipolar 1 disorder, mixed F3 1.60 [facility] [address] [place] [id number] [address] [place] [address] October, [facility] [address] [place] [id number] [address] [place] [address] October, [facility] [address] [place] [id number] [address] [place] [address] October, Bipolar 1 disorder, mixed F3 1.60 [facility] [address] [place] [id number] [address] [place] [address] Sep, Bipolar 1 disorder, mixed F3 1.60 [facility] [address] [facility] [id number] [address] [place] [address] Sep, Other chronic pain G89.29 [facility] [address] [place] [id number] [address] [place] [address] Sep, [facility] [address] [place] [id number] [address] [place] [address] Sep, Bipolar 1 disorder, mixed F3 1.60 [facility] [address] [id number] [address] [place] [address] Sep, Allergic rhinitis J30.9 and Sciatica of left side M54.32 [facility] [address] [facility] [id number] [address] [place] [address] Sep, Bipolar 1 disorder, mixed F3 1.60 [facility] [address] [facility] [id number] [address] [place] [address] Sep, Bipolar 1 disorder, mixed F3 1.60 and Generalized anxiety disorder F41.1 [facility] [address] [id number] [address] [place] [address] Aug, [facility] [address] [facility] [id number] [address] [place], [place] [address] Aug, Bipolar 1 disorder, mixed F3 1.60 [facility] [address] [place] [id number] [address] [place] [id number] Aug, Bipolar 1 disorder, mixed F3 1.60 [facility] [address] [facility] [id number] [address] [place] [id number] Aug, [facility] [address] [facility] [id number] [address] [place] [id number] Aug, Generalized anxiety disorder F41.1 [facility] [address] [facility] [id number] [address] [place] [id number] Aug, Bipolar 1 disorder, mixed F3 1.60 [facility] [address] [facility] [id number] [address] [place] [id number] Aug, Plantar wart of right foot B 07.0 [facility] [address] [facility] [id number] [address] [place], [place] [id number] Aug, Bipolar 1 disorder, mixed F3 1.60 [facility] [address] [place] [id number] [address] [place] [id number] Jul, Bipolar 1 disorder, mixed F3 1.60 [facility] [address] [place] [id number] [address] [place] [id number] Jul, [facility] [address] [facility] [id number] [address] [place] [id number] 14 Jul, 2017 Bipolar 1 disorder, mixed F3 1.60 [facility] [address] [id number] [address] [place] [address] Jul, Generalized anxiety disorder F41.1 [facility] [address] [id number] [address] [place] [address] Jul, Bipolar 1 disorder, mixed F3 1.60 [place] [address] [address] Jul, Acute left-sided low back pa in with left-sided sciatica M54.42 [facility] [address] [id number] [place] [address] Jul, Coccydynia M53.3 [facility] [id number] [address] [place] [address] Jun, Bipolar 1 disorder, mixed F3 1.60 [facility] [id number] [address] [place] [address] Jun, Acute nasopharyngitis J00 [facility] [id number] [address] [place] [address] Jun, Bipolar 1 disorder, mixed F3 1.60 [facility] [id number] [address] [place] [address] Jun, Fibromyalgia M79.7 [facility] [id number] [address] [place] [address] Jun, Bipolar 1 disorder, mixed F3 1.60 [facility] [address] [id number] [address] [place] [address] Jun, Fibromyalgia M79.7 and Bipol ar 1 disorder, mixed F31.60 [facility] [address] [address] 27 May, 2017 Bipolar 1 disorder, mixed F3 1.60 ; Generalized anxiety disorder F41.1 and 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.899 [place] [id number] [address] May, Bipolar 1 disorder, mixed F3 1.60 [facility] [address] [address] 14 May, 2017 Cough R05 and Body aches R52 [facility] [address] [address] 10 May, 2017 Bladder spasm N32.89 and Acu te cystitis without hematuria N30.00 [place] [address] [address] 07 May, 2017 Bipolar 1 disorder, mixed F3 1.60 [place] [address] [address] 30 Apr, 2017 [place] [address] [address] Apr, Major depressive disorder, r ecurrent episode, moderate F33.1 and Encounter for immunization Z23 [place] [address] [address] Apr, Bipolar 1 disorder, mixed F3 1.60 [place] [address] [address] Apr, Bipolar 1 disorder, mixed F3 1.60 [place] [address] [address] 16 Apr, 2017 Bipolar 1 disorder, mixed F3 1.60 [place] [address] [address] 13 Apr, 2017 Yeast vaginitis B37.3 [place] [address] [address] Apr, Bipolar 1 disorder, mixed F3 1.60 [facility] [id number] [address] [place] [address] Apr, Cellulitis L03.[address] for immunization Z23 [facility] [id number] [place] [address] Apr, Bipolar 1 disorder, mixed F3 1.60 [facility] [address] [place] [address] [id number] [address] [place] [address] Mar, Bipolar 1 disorder, mixed F3 1.60 [facility] [address] [address] Mar, Bipolar 1 disorder, mixed F3 1.60 [facility] [address] [address] Mar, Imbalance R26.89 and Encount er for immunization Z23 [facility] [address] [id number] [address] [place] [address] Mar, Generalized anxiety disorder F41.1 [facility] [address] [address] Mar, Bipolar 1 disorder, mixed F3 1.60 [facility] [id number] [address] [place] [address] Mar, Generalized anxiety disorder F41.1 [facility] [id number] [place] [address] Mar, Bipolar 1 disorder, mixed F3 1.60 [facility] [id number] [place] [address] Mar, Bipolar 1 disorder, mixed F3 1.60 [facility] [id number] [address] [place], [place] [address] Feb, Bipolar 1 disorder, mixed F3 1.60 [facility] [id number] [address] [place] [address] Feb, Bipolar 1 disorder, mixed F3 1.60 and Generalized anxiety disorder F41.1 [place] [address] [place] [id number] [address] [place] [address] Feb, Gastritis without bleeding, unspecified chronicity, unspecified gastritis type K29.70 ; Hammer toe of right foot M20.41 and Other viral warts B07.8 [place] [address] [place] [id number] [place] [address] Feb, Bipolar 1 disorder, mixed F3 1.60 [place] [address] [place] [address] [id number] [place] [address] Feb, Bipolar 1 disorder, mixed F3 1.60 [place] [address] [place] [id number] [place] [address] Feb, Bipolar 1 disorder, mixed F3 1.60 [place] [address] [address] Jan, Encounter for screening mamm ogram for breast cancer Z12.31 ; Other viral warts B07.8 and Allergic rhinitis J30.9 [place] [address] [address] Jan, Bipolar 1 disorder, mixed F3 1.60 [place] [address] [place] [id number] [place] [address] Jan, Bipolar 1 disorder, mixed F3 1.60 [place] [address] [place] [id number] [place] [address] Jan, [place] [address] [place] [id number] [place] [address] Jan, Bipolar 1 disorder, mixed F3 1.60 [place] [address] [place] [id number] [place] [address] Jan, Bipolar 1 disorder, mixed F3 1.60 [place] [address] [place] [id number] [place] [address] Jan, Allergic rhinitis J30.9 ; He maturia R31.9 and Colon cancer screening Z12.11 [facility] [id number] [place] [address] Dec, Bipolar 1 disorder, mixed F3 1.60 [facility] [id number] [place] [address] Dec, Bipolar 1 disorder, mixed F3 1.60 ; Generalized anxiety disorder F41.1 and 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.899 [facility] [address] [facility] [id number] [address] [place] [address] Dec, Bipolar 1 disorder, mixed F3 1.60 [place] [address] [place] [id number] [address] [place] [address] Dec, Bipolar 1 disorder, mixed F3 1.60 [place] [address] [place] [id number] [place] [address] Dec, Bipolar 1 disorder, mixed F3 1.60 [place] [id number] [place] [id number] [place] [address] Dec, Low back pain M54.5 and Recu rrent urinary tract infection N39.0 [facility] [address] [facility] [id number] [address] [place] [address] Nov, Bipolar 1 disorder, mixed F3 1.60 [facility] [id number] [place] [address] Nov, Bipolar 1 disorder, mixed F3 1.60 [facility] [id number] [address] [place] [address] Nov, Bipolar 1 disorder, mixed F3 1.60 [place] [address] [place] [id number] [place] [address] Nov, Bipolar 1 disorder, mixed F3 1.60 [facility] [id number] [place] [address] Nov, [place] [address] [place] [id number] [address] [place] [address] Nov, Anesthesia of skin R20.0 ; F requent UTI N39.0 ; Tobacco abuse Z72.0 and Colon cancer screening Z12.11 [place] [address] [address] Nov, Bipolar 1 disorder, mixed F3 1.60 [place] [address] [address] October, Bipolar 1 disorder, mixed F3 1.60 [place] [address] [address] October, Bipolar 1 disorder, mixed F3 1.60 [place] [address] [address] October, Bipolar 1 disorder, mixed F3 1.60 [place] [address] [address] October, Bipolar 1 disorder, mixed F3 1.60 [place] [address] [address] October, Bipolar 1 disorder, mixed F3 1.60 [place] [address] [address] October, Cervicalgia M54.2 and Bipola r 1 disorder, mixed F31.60 [place] [address] [address] October, Hypertension I10 ; Hyperlipi demia, unspecified hyperlipidemia type E78.5 and Family history of thyroid disease Z83.49 [place] [address] [address] October, [place] [address] [address] October, Hypertension I10 ; Hyperlipi demia, unspecified hyperlipidemia type E78.5 and Family history of thyroid problem Z83.49 [facility] [id number] [address] [place] [address] October, Bipolar 1 disorder, mixed F3 1.60 [facility] [id number] [address] [place], [place] [address] Sep, Bipolar 1 disorder, mixed F3 1.60 [facility] [id number] [address] [place] [address] Sep, Bipolar 1 disorder, mixed F3 1.60 [facility] [address] [id number] [address] [place] [address] Sep, Bipolar 1 disorder, mixed F3 1.60 [place] [address] [place] [id number] [place] [address] Sep, History of colon polyps Z86. 010 and Hematochezia K92.1 [place] [address] [place] [id number] [address] [place] [address] Sep, Major depressive disorder, r ecurrent episode, moderate F33.1 [place] [address] [place] [id number] [address] [place] [address] Sep, Bipolar 1 disorder, mixed F3 1.60 [place] [id number] [place] [id number] [address] [place] [address] Aug, Hot flashes due to menopause N95.1 [facility] [id number] [address] [place] [address] Aug, Bipolar 1 disorder, mixed F3 1.60 [facility] [id number] [address] [place] [address] Aug, [place] [address] [place] [address] [id number] [place] [address] Aug, Bipolar 1 disorder, mixed F3 1.60 [facility] [id number] [address] [place] [address] Aug, Bipolar 1 disorder, mixed F3 1.60 [place] [address] [address] Aug, Hot flashes due to menopause N95.1 ; Cervicalgia M54.2 and Ataxia R27.0 [place] [address] [address] Jul, Bipolar 1 disorder, mixed F3 1.60 [place] [address] Jul, Bipolar 1 disorder, mixed F3 1.60 [place] [address] Jul, Bipolar 1 disorder, mixed F3 1.60 [place] [address] [address] Jul, Bipolar 1 disorder, mixed F3 1.60 [place] [address] [address] Jul, Bipolar 1 disorder, mixed F3 1.60 [place] [address] [address] Jul, Cervicalgia M54.2 ; Tremor R 25.1 ; Hearing abnormally acute, unspecified laterality H93.239 ; Alopecia L65.9 ; Encounter for immunization Z23 and Family history of thyroid disease Z83.49 [place] [address] [address] Jul, Bipolar 1 disorder, mixed F3 1.60 [place] [address] [address] Jun, [place] [address] [place] 7[address]252[address] Jun, Hearing disorder, unspecifie d laterality H93.299 [place] [address] [address] Jun, Bipolar 1 disorder, mixed F3 1.60 [facility] [address] [id number] [address] [place] [address] Jun, Bipolar 1 disorder, mixed F3 1.60 [facility] [address] [id number] [address] [place] [address] Jun, Allergic rhinitis J30.9 [facility] [address] [id number] [address] [place] [address] Jun, Bipolar 1 disorder, mixed F3 1.60 [facility] [address] [id number] [address] [place] [address] Jun, Bipolar 1 disorder, mixed F3 1.60 [facility] [address] [id number] [address] [place] [address] Jun, Allergic rhinitis J30.9 [facility] [address] [id number] [address] [place] [address] Jun, Allergic rhinitis J30.9 [facility] [address] [id number] [address] [place] [address] Jun, Bipolar 1 disorder, mixed F3 1.60 [facility] [address] [id number] [address] [place] [address] May, Bipolar 1 disorder, mixed F3 1.60 [facility] [address] [id number] [address] [place] [address] May, Bipolar 1 disorder, mixed F3 1.60 [facility] [address] [id number] [address] [place] [address] May, [facility] [address] [id number] [address] [place] [address] May, Bipolar 1 disorder, mixed F3 1.60 [facility] [address] [facility] [id number] [address] [place] [address] May, Bipolar 1 disorder, mixed F3 1.60 [facility] [address] [id number] [address] [place] [address] May, [facility] [address] [facility] [id number] [address] [place] [address] May, [facility] [address] [facility] [id number] [address] [place] [address] May, [facility] [address] [facility] [id number] [address] [place] [address] May, Abdominal pain, unspecified location R10.9 [facility] [address] [facility] [id number] [address] [place] [address] May, [facility] [address] [id number] [place] [address] Apr, Hematuria R31.9 ; Ataxia R27 .0 and Hearing loss, unspecified laterality H91.90 [facility] [address] [id number] [address] [place] [address] Apr, Bipolar 1 disorder, mixed F3 1.60 [facility] [address] [facility] [id number] [address] [place] [address] Apr, Acute effusion of both middl e ears H65.193 [facility] [address] [facility] [id number] [address] [place] [address] Apr, Hematuria R31.9 and Pyelonep hritis N12 [facility] [address] [facility] [id number] [address] [place] [address] Apr, [facility] [address] [facility] [id number] [address] [place] [address] Mar, Bipolar 1 disorder, mixed F3 1.60 [facility] [address] [facility] [id number] [address] [place] [address] Mar, [facility] [address] [facility] [id number] [address] [place] [address] Mar, Bipolar 1 disorder, mixed F3 1.60 [facility] [address] [facility] [id number] [address] [place], [place] [id number] Mar, Bipolar 1 disorder, mixed F3 1.60 [place] [address] [place] [id number] [place], [place] [id number] Mar, Encounter for immunization Z 23 and Gastritis without bleeding, unspecified chronicity, unspecified gastritis type K29.70 [place] [address] [facility] [id number] [address] [place] [address] Mar, Bipolar 1 disorder, mixed F3 1.60 and Grief F43.20 [place] [address] [facility] [id number] [address] [place] [address] Mar, Gastritis without bleeding, unspecified chronicity, unspecified gastritis type K29.70 [place] [address] [place] [id number] [address] [place] [address] Mar, Bipolar 1 disorder, mixed F3 1.60 [place] [address] [place] [id number] [address] [place] [address] Mar, Gastritis without bleeding, unspecified chronicity, unspecified gastritis type K29.70 [place] [address] [facility] [id number] [address] [place] [address] Mar, [place] [address] [place] [id number] [address] [place] [address] 27 Feb, 2016 Bipolar 1 disorder, mixed F3 1.60 [place] [address] [place] [id number] [address] [place] [address] Feb, Bipolar 1 disorder, mixed F3 1.60 and Grief F43.20 [facility] [address] [facility] [id number] [address] [place] [address] 22 Feb, 2016 Gastritis without bleeding, unspecified chronicity, unspecified gastritis type K29.70 [facility] [address] [facility] [id number] [address] [place] [address] 14 Feb, 2016 Bipolar 1 disorder, mixed F3 1.60 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 [place] [address] Jan, Bipolar 1 disorder, mixed F3 1.60 [place] [address] [place] [address] Jan, Bipolar 1 disorder, mixed F3 1.60 [place] [address] Jan, Bipolar 1 disorder, mixed F3 1.60 ; Grief F43.20 and 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.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 [place] [address] [place] [address] Jan, Bipolar 1 disorder, mixed F3 1.60 [place] [address] [place] [address] Dec, [place] [address] [place] [address] Dec, Bipolar 1 disorder, mixed F3 1.60 ; Vitamin D deficiency, unspecified E55.9 ; H/O allergic rhinitis Z87.09 ; Other chronic pain G89.29 and Dorsalgia, unspecified M54.9 [facility] [address] [id number] [address] [place] [address] Dec, [facility] [address] [id number] [address] [place] [address] Dec, Bipolar 1 disorder, mixed F3 1.60 [facility] [address] [facility] [id number] [address] [place] [address] Dec, Major depressive disorder, r ecurrent episode, moderate F33.1 [place] [address] [id number] [address] [place] [address] Dec, Major depressive disorder, r ecurrent episode, moderate F33.1 [place] [address] [facility] [id number] [address] [place] [address] Nov, [place] [address] [facility] [id number] [address] [place] [address] Nov, Bipolar 1 disorder, mixed F3 1.60 [place] [id number] [facility] [id number] [address] [place] [address] Nov, Major depressive disorder, r ecurrent episode, moderate F33.1 [facility] [address] [facility] [id number] [address] [place] [address] Nov, Cervicalgia M54.2 ; Arthralg ia of hip, unspecified laterality M25.559 ; Allergic rhinitis J30.9 and Hormone replacement therapy Z79.890 [facility] [address] [facility] [id number] [address] [place] [address] Nov, Other seasonal allergic rhin itis J30.2 [facility] [address] [facility] [id number] [address] [place] [address] October, Major depressive disorder, r ecurrent episode, moderate F33.1 [facility] [address] [facility] [id number] [address] [place] [address] October, Major depressive disorder, r ecurrent episode, moderate F33.1 and Arthralgia of hip, unspecified laterality M25.559 [place] [id number] [facility] [id number] [address] [place] [address] October, Grief F43.20 ; Hypertension I10 ; Hyperlipidemia, unspecified hyperlipidemia type E78.5 ; Other chronic pain G89.29 and Allergic rhinitis, unspecified allergic rhinitis type J30.9 [place] [address] [facility] [id number] [address] [place] [id number] October, Major depressive disorder, r ecurrent episode, moderate F33.1 [place] [address] [address] [facility] [id number] [address] [place] [phone] Sep, Major depressive disorder, r ecurrent episode, moderate F33.1 [place] [address] [address] [place] [id number] [address] [place] [id number] Sep, [place] [address] [address] [place] [id number] [address] [place] [phone] Sep, Major depressive disorder, r ecurrent episode, moderate F33.1 [place] [address] [address] [place] [id number] [address] [place] [phone] Sep, Grief F43.20 [place] [address] [address] [place] [id number] [address] [place] [phone] Aug, Major depressive disorder, r ecurrent episode, moderate F33.1 [place] [address] [address] [facility] [id number] [address] [place] [phone] Aug, Bipolar 1 disorder, mixed F3 1.60 [place] [address] [address] [facility] [id number] [address] [place] [phone] Aug, Allergic rhinitis J30.9 ; Ce rvicalgia M54.2 and Low back pain M54.5 [place] [id number] [address] [facility] [id number] [address] [place] [phone] Aug, Major depressive disorder, r ecurrent episode, moderate F33.1 [facility] [address] [facility] [id number] [address] [place] [phone] Aug, Sinusitis J32.9 and Tobacco dependence F17.200 [facility] [address] [facility] [id number] [address] [place] [phone] Aug, [facility] [address] [facility] [id number] [address] [place] [phone] Aug, Depressive disorder, not els ewhere classified F32.9 ; Hormone replacement therapy Z79.[address] scan, head R93.0 [facility] [address] [facility] [id number] [address] [place] [phone] Aug, Major depressive disorder, r ecurrent episode, moderate F33.1 [facility] [address] [facility] [id number] [address] [place] [phone] Jul, Major depressive disorder, r ecurrent episode, moderate F33.1 [facility] [address] [facility] [id number] [address] [place] [phone] Jul, Abdominal pain R10.9 and Hyp ertension I10 [facility] [address] [facility] [id number] [address] [place] [id number] 08 Jul, 2015 [facility] [address] [facility] [id number] [address] [place] [id number] 05 Jul, 2015 Major depressive disorder, r ecurrent episode, moderate F33.1 [facility] [address] [facility] [id number] [address] [place] [address] Jul, [facility] [address] [facility] [id number] [address] [place] [address] Jul, [facility] [address] [facility] [id number] [address] [place] [address] Jun, [facility] [address] [facility] [id number] [address] [place] [address] Jun, Depressive disorder, not els ewhere classified F32.9 [facility] [address] [facility] [id number] [address] [place] [address] Jun, [facility] [address] [id number] [address] [place] [address] Jun, [facility] [address] [facility] [id number] [address] [place] [address] Jun, Arthralgia of hip, unspecifi ed laterality M25.559 ; Bruising, spontaneous R23.3 and Night sweats R61 [facility] [address] [facility] [id number] [address] [place] [address] Jun, [facility] [address] [facility] [id number] [address] [place] [address] Jun, [facility] [address] [place] [id number] [address] [place] [address] May, [facility] [address] [place] [id number] [address] [place] [address] May, Myalgia M79.1 and Screening, lipid Z13.220 [facility] [address] [place] [id number] [address] [place] [address] Apr, Status post cervical spinal fusion Z98.1 ; Fibromyalgia M79.7 and Unsteady gait R26.81 [facility] [address] [facility] [id number] [address] [place] [address] Nov, [facility] [address] [facility] [id number] [address] [place] [address] Nov, [facility] [address] [facility] [id number] [address] [place] [address] October, [facility] [address] [facility] [id number] [address] [place] [address] October, [facility] [address] [facility] [id number] [address] [place] [address] October, [facility] [address] [facility] [id number] [address] [place] [address] October, [facility] [address] [id number] [address] [place] [address] October, [facility] [address] [id number] [address] [place] [address] October, Dysuria 788.1 ; Nausea 787.0 2 and Urinary tract infection 599.0 [facility] [address] [id number] [address] [place] [address] Sep, [facility] [address] [id number] [address] [place] [address] Sep, [facility] [address] [id number] [address] [place] [address] Aug, [facility] [address] [id number] [address] [place] [address] Aug, [facility] [address] [id number] [address] [place] [address] Aug, [facility] [address] [id number] [address] [place] [address] Aug, [facility] [address] [id number] [address] [place] [address] Aug, [facility] [address] [id number] [address] [place] [address] Aug, [facility] [address] [id number] [address] [place] [address] Aug, [facility] [address] [id number] [address] [place] [address] Aug, [facility] [address] [id number] [address] [place] [address] Aug, [facility] [address] [id number] [address] [place] [address] Aug, [facility] [address] [id number] [address] [place] [address] 18 Aug, 2014 [facility] [address] [id number] [address] [place] [address], [place] [address] 13 Aug, 2014 [facility] [address] [id number] [address] [place] [address], [place] [address] 13 Aug, 2014 [facility] [address] [id number] [address] [place] [address], [place] [address] Aug, [facility] [address] [id number] [address] [place] [address], [place] [address] Aug, [facility] [address] [id number] [address] [place] [address], [place] [address] Aug, [facility] [address] [id number] [address] [place] [address], [place] [address] Aug, [facility] [address] [id number] [address] [place] [address], [place] [address] Aug, [facility] [address] [id number] [address] [place] [address], [place] [address] Aug, [facility] [address] [id number] [address] [place] [address], [place] [address] Aug, [facility] [address] [id number] [address] [place] [address], [place] [address] Aug, [facility] [address] [id number] [address] [place] [address], [place] [address] Aug, [facility] [address] [id number] [address] [place] [address] Jul, [facility] [address] [id number] [address] [place] [address], [place] [address] Jul, [facility] [address] [id number] [address] [place] [address], [place] [address] Jul, [facility] [address] [id number] [address] [place] [address], [place] [address] Jul, [facility] [address] [id number] [address] [place] [address], [place] [address] Jul, 2014 [facility] [address] [id number] [address] [place] [address], [place] [address] Jul, 2014 [facility] [address] [id number] [address] [place] [address], [place] [address] Jul, 2014 [facility] [address] [id number] [address] [place] [address], [place] [address] Jul, 2014 [facility] [address] [id number] [address] [place] [address], [place] [address] Jul, 2014 [facility] [address] [id number] [address] [place] [address], [place] [address] Jul, 2014 [facility] [address] [id number] [address] [place] [address], [place] [address] Jul, 2014 [facility] [address] [id number] [address] [place] [address], [place] [address] Jul, 2014 [facility] [address] [id number] [address] [place] [address], [place] [address] Jul, [facility] [address] [id number] [address] [place] [address], [place] [address] Jul, [facility] [address] [id number] [address] [place] [address], [place] [address] Jun, [facility] [address] [id number] [address] [place] [address], [place] [address] Jun, [facility] [address] [id number] [address] [place] [address], [place] [address] Jun, [facility] [address] [id number] [address] [place] [address], [place] [address] Jun, [facility] [address] [id number] [address] [place] [address], [place] [address] Jun, [facility] [address] [id number] [address] [place] [address] Jun, [facility] [address] [id number] [address] [place] [address], [place] [address] May, [facility] [address] [id number] [address] [place] [address], [place] [address] May, [facility] [address] [id number] [address] [place] [address], [place] [address] May, [facility] [address] [id number] [address] [place] [address], [place] [address] May, [facility] [address] [id number] [address] [place] [address], [place] [address] May, [facility] [address] [id number] [address] [place] [address], [place] [address] May, [facility] [address] [id number] [address] [place] [address], [place] [address] Apr, [facility] [address] [id number] [address] [place] [address], [place] [address] Apr, [facility] [address] [id number] [address] [place] [address], [place] [address] Apr, [facility] [address] [id number] [address] [place] [address], [place] [address] Apr, [facility] [address] [id number] [address] [place] [address], [place] [address] Apr, [facility] [address] [id number] [address] [place] [address] Apr, [facility] [address] [id number] [address] [place] [address], [place] [address] Mar, [facility] [address] [id number] [address] [place] [address], [place] [address] Mar, [facility] [address] [id number] [address] [place] [address], [place] [address] Mar, [facility] [address] [id number] [address] [place] [address], [place] [address] 09 Mar, 2013 [facility] [address] [id number] [address] [place] [address], [place] [address] Mar, 2013 [facility] [address] [id number] [address] [place] [address], [place] [address] Mar, 2013 [facility] [address] [id number] [address] [place] [address], [place] [address] Mar, 2013 [facility] [address] [id number] [address] [place] [address], [place] [address] Mar, 2013 [facility] [address] [id number] [address] [place] [address], [place] [address] Mar, 2013 [facility] [address] [id number] [address] [place] [address], [place] [address] Mar, 2013 [facility] [address] [id number] [address] [place] [address], [place] [address] Mar, 2013 [facility] [address] [id number] [address] [place] [address], [place] [address] Mar, 2013 [facility] [address] [id number] [address] [place] [address], [place] [address] 30 Sep, 2013 [facility] [address] [id number] [address] [place] [address], [place] [address] 29 Sep, 2013 [facility] [address] [id number] [address] [place] [address], [place] [address] 29 Sep, 2013 [facility] [address] [id number] [address] [place] [address], [place] [address] 23 Sep, 2013 [facility] [address] [id number] [address] [place] [address], [place] [address] 23 Sep, 2013 [facility] [address] [id number] [address] [place] [address], [place] [address] 08 Sep, 2013 [facility] [address] [id number] [address] [place] [address], [place] [address] Feb, [facility] [address] [id number] [address] [place] [address], [place] [address] Jan, [facility] [address] [id number] [address] [place] [address], [place] [address] Jan, [facility] [address] [id number] [address] [place] [address], [place] [address] Jan, [facility] [address] [id number] [address] [place] [address], [place] [address] Dec, [facility] [address] [id number] [address] [place] [address], [place] [address] Dec, [facility] [address] [id number] [address] [place] [address], [place] [address] Dec, [facility] [address] [id number] [address] [place] [address], [place] [address] Dec, [facility] [address] [id number] [address] [place] [address], [place] [address] Sep, [facility] [address] [id number] [address] [place] [address], [place] [address] Sep, [facility] [address] [id number] [address] [place] [address], [place] [address] Sep, [facility] [address] [id number] [address] [place] [address], [place] [address] Sep, [facility] [address] [id number] [address] [place] [address], [place] [address] Sep, [facility] [address] [id number] [address] [place] [address], [place] [address] Sep, [facility] [address] [id number] [address] [place] [address], [place] [address] Sep, [facility] [address] [id number] [address] [place] [address], [place] [address] Sep, [facility] [address] [id number] [address] [place] [address], [place] [address] 10 Aug, 2013 [facility] [address] [id number] [address] [place] [address], [place] [address] Aug, [facility] [address] [id number] [address] [place] [address], [place] [address] May, [facility] [address] [id number] [address] [place] [address], [place] [address] May, [facility] [address] [id number] [address] [place] [address], [place] [address] Apr, [facility] [address] [id number] [address] [place] [address], [place] [address] Apr, [facility] [address] [id number] [address] [place] [address], [place] [address] Apr, [facility] [address] [id number] [address] [place] [address], [place] [address] Apr, [facility] [address] [id number] [address] [place] [address], [place] [address] Apr, [facility] [address] [id number] [address] [place] [address], [place] [address] Apr, [facility] [address] [id number] [address] [place] [address], [place] [address] May, [facility] [address] [id number] [address] [place] [address], [place] [address] 18 May, 2012 [facility] [address] [id number] [address] [place] [address], [place] [address] 15 May, 2012 [facility] [address] [id number] [address] [place] [address], [place] [address] 15 May, 2012 [facility] [address] [id number] [address] [place] [address], [place] [address] 13 May, 2012 [facility] [address] [id number] [address] [place] [address], [place] [address] 13 May, 2012 [facility] [address] [id number] [address] [place] [address], [place] [address] 13 Apr, 2012 [facility] [address] [id number] [address] [place] [address], [place] [address] 13 Apr, 2012 [facility] [address] [id number] [address] [place] [address], [place] [address] 08 Apr, 2012 [facility] [address] [id number] [address] [place] [address], [place] [address] 08 Apr, 2012 [facility] [address] [id number] [address] [place] [address], [place] [address] 08 Apr, 2012 [facility] [address] [id number] [address] [place] [address], [place] [address] Apr, [facility] [address] [id number] [address] [place] [address], [place] [address] Apr, [facility] [address] [id number] [address] [place] [address], [place] [address] Apr, [facility] [address] [id number] [address] [place] [address], [place] [address] Apr, [facility] [address] [id number] [address] [place] [address], [place] [address] Apr, [facility] [address] [id number] [address] [place] [address], [place] [address] Mar, [facility] [address] [id number] [address] [place] [address], [place] [address] Mar, [facility] [address] [id number] [address] [place] [address], [place] [address] Mar, [facility] [address] [id number] [address] [place] [address], [place] [address] Mar, [facility] [address] [id number] [address] [place] [address], [place] [address] Mar, [facility] [address] [id number] [address] [place] [address], [place] [address] Mar, [facility] [address] [id number] [address] [place] [address], [place] [address] Mar, [facility] [address] [id number] [address] [place] [address], [place] [address] Mar, [facility] [address] [id number] [address] [place] [address], [place] [address] Mar, [facility] [address] [id number] [address] [place] [address], [place] [address] 25 Feb, 2012 [facility] [address] [id number] [address] [place] [address], [place] [address] 16 Feb, 2012 [facility] [address] [id number] [address] [place] [address], [place] [address] Feb, [facility] [address] [id number] [address] [place] [address], [place] [address] Jan, [facility] [address] [id number] [address] [place] [address], [place] [address] Jan, [facility] [address] [id number] [address] [place] [address], [place] [address] Jan, [facility] [address] [id number] [address] [place] [address], [place] [address] Jan, [facility] [address] [id number] [address] [place] [address], [place] [address] Jan, [facility] [address] [id number] [address] [place] [address], [place] [address] Jan, [facility] [address] [id number] [address] [place] [address], [place] [address] 16 Jan, 2012 [facility] [address] [id number] [address] [place] [address], [place] [address] Jan, [facility] [address] [id number] [address] [place] [address], [place] [address] Jan, [facility] [address] [id number] [address] [place] [address] [place] [address] Jan, [facility] [address] [id number] [address] [place] [address], [place] [address] Dec, [facility] [address] [id number] [address] [place] [address], [place] [address] Dec, [facility] [address] [id number] [address] [place] [address], [place] [address] Dec, [facility] [address] [id number] [address] [place] [address], [place] [address] Dec, [facility] [address] [id number] [address] [place] [address], [place] [address] Nov, [facility] [address] [id number] [address] [place] [address], [place] [address] Nov, [facility] [address] [id number] [address] [place] [address], [place] [address] Nov, [facility] [address] [id number] [address] [place] [address], [place] [address] October, [facility] [address] [id number] [address] [place] [address], [place] [address] October, [facility] [address] [id number] [address] [place] [address], [place] [address] October, [facility] [address] [id number] [address] [place] [address], [place] [address] October, [facility] [address] [id number] [address] [place] [address], [place] [address] October, [facility] [address] [id number] [address] [place] [address], [place] [address] October, [facility] [address] [id number] [address] [place] [address], [place] [address] Aug, [facility] [address] [id number] [address] [place] [address], [place] [address] Mar, [facility] [address] [facility] [id number] [address] [place] [address] Nov, [facility] [address] [facility] [id number] [address] [place] [address] May, [facility] [address] [facility] [id number] [address] [place] [address] May, [facility] [address] [facility] [id number] [address] [place] [address] Apr, [facility] [address] [facility] [id number] [address] [place] [id number] Mar, [facility] [address] [facility] [id number] [address] [place] [address] Mar, IMMUNIZATIONS No Known Immunizations SOCIAL HISTORY [...]
--- OUTSIDE RECORDS SUMMARY | 2020-02-02 19:41 | XMS REPORT ---
Author Author Sydnie HANCOCK [facility] Address [address] [place] [address] Care Team Providers Care Silver Buffer Name Role Phone NAHOMY HANCOCK Unavailable PROBLEMS Type Condition ICD9-CM Code WII56-LH Code Onset Dates Condition S tatus SNOMED Code Problem Bruising, spontaneous R23.3 Active 577230530 Problem Arthralgia of hip, unspecified laterality M25.559 Active 45600752 Problem Night sweats R61 Active 0641084 0 Problem Grief F43.20 Active 78426539 Problem Hypertension I10 Active 5107393 3 Problem Hyperlipidemia, unspecified hyperlipidemia type E7 8.5 Active 64715608 Problem Other chronic pain G89.29 Active 8 9187198 Problem Bladder spasm N32.89 Active 911140 006 Problem Age-related osteoporosis without current pathological fracture M81.0 Active 81763173 Problem Fibromyalgia M79.7 Active 8114233 7 Problem Hormone replacement therapy Z79.890 Ac tive 535690585 Problem Sensorineural hearing loss (SNHL) of both ears H90 .3 Active 355253111 Problem Abnormal CT scan, head R93.0 Active 937999781 Problem Allergic rhinitis J30.9 Active 61 479679 Problem Hearing loss, unspecified laterality H91.90 Active 36608753 Problem Generalized anxiety disorder F41.1 A ctive 99380343 Problem History of colon polyps Z86.010 Active 165305208 Problem Hammer toe of right foot M20.41 Activ e 475008110 Problem Hematuria, unspecified type R31.9 Ac tive 25472800 Problem Major depressive disorder, recurrent episode, moderate F33.1 Active 690714932 Problem Imbalance R26.89 Active 401603688 Problem Acute left-sided low back pain with left-sided sciatica M54.42 Active 532301976 Problem Sciatica of left side M54.32 Active 51604145 Problem Plantar wart of right foot B07.0 Act mitchell [id number] Problem Hearing loss, unspecified hearing loss type, uns pecified laterality H91.90 Active 03019583 Problem Bipolar 1 disorder, mixed F31.60 Acti ve 60865723 Problem Osteoporotic compression fracture of spine with delayed healing M80.88XG Active 74357978 Problem Gastritis without bleeding, unspecified chronicity, unspecified gastritis type K29.70 Active 098649955 Problem Ataxia R27.0 Active 16561501 Problem Slow transit constipation K59.01 Acti ve 89219705 Problem Tobacco use disorder F17.200 Active 054547502 Problem Post menopausal syndrome N95.1 Activ e 803908347 Problem Sciatica of right side M54.31 Active 09659202 ALLERGIES No Information ENCOUNTERS Encounter Location Date Diagnosis [place] [address] [address] Dec, [place] [address] [address] October, [place] [address] [address] Sep, [facility] [address] [address] Sep, Bipolar 1 disorder, mixed F3 1.60 [place] [address] [address] [place] [id number] [place] [id number] 15 Sep, 2019 Compression fracture of L1 v ertebra, sequela S32.010S ; Tobacco use disorder F17.200 ; Age-related osteoporosis with current pathological fracture with routine healing, subsequent encounter M80.00XD ; Allergic rhinitis J30.9 ; Generalized anxiety disorder F41.1 and Recurrent UTI N39.0 [facility] [address] [place] [id number] [place] [id number] 14 Sep, 2019 Bipolar 1 disorder, mixed F3 1.60 ; Generalized anxiety disorder F41.1 and Tobacco use disorder F17.200 [facility] [address] [place] [id number] [place] [id number] 13 Sep, 2019 [facility] [address] [place] [phone] 08 Sep, 2019 Bipolar 1 disorder, mixed F3 1.60 [facility] [address] [address] 23 Aug, 2019 [facility] [address] [place] [id number] [place] [id number] 23 Aug, 2019 Yeast vaginitis B37.3 [facility] [address] [place] [id number] [place] [id number] 14 Aug, 2019 Vaginal discharge N89.8 [facility] [address] [place] [phone] 10 Aug, 2019 Bipolar 1 disorder, mixed F3 1.60 [facility] [address] [address] 04 Aug, 2019 Age-related osteoporosis wit h current pathological fracture with routine healing, subsequent encounter M80.00XD [place] [address] [address] 24 Jul, 2019 Age-related osteoporosis wit h current pathological fracture with routine healing, subsequent encounter M80.00XD [place] [address] [address] 24 Jul, 2019 Osteoporotic compression fra cture of spine with delayed healing M80.88XG and Tobacco use disorder F17.200 [place] [address] [place] [id number] [place] [id number] 11 Jul, 2019 Bipolar 1 disorder, mixed F3 1.60 [facility] [address] [place] [address] 07 Jul, 2019 [place] [address] [place] [address] 03 Jul, 2019 Tobacco use disorder F17.200 [place] [address] [place] [id number] [place] [id number] 15 Jun, 2019 Bipolar 1 disorder, mixed F3 1.60 [facility] [address] [id number] [address] [place] [phone] Jun, Bipolar 1 disorder, mixed F3 1.60 ; Generalized anxiety disorder F41.1 and Tobacco use disorder F17.200 [facility] [address] [id number] [address] [place] [phone] Jun, Tobacco use disorder F17.200 [facility] [address] [id number] [address] [place] [phone] May, [facility] [address] [id number] [address] [place] [phone] May, Compression fracture of L1 v ertebra with routine healing, subsequent encounter S32.010D [facility] [address] [id number] [address] [place] [phone] May, [facility] [address] [id number] [address] [place] [phone] May, [facility] [address] [id number] [address] [place] [phone] May, [facility] [address] [facility] [id number] [address] [place] [phone] May, [facility] [address] [id number] [address] [place] [phone] May, [facility] [address] [id number] [address] [place] [phone] May, [facility] [address] [id number] [address] [place] [phone] May, [facility] [address] [id number] [address] [place] [phone] May, Bipolar 1 disorder, mixed F3 1.60 [facility] [address] [id number] [address] [place] [phone] May, Closed fracture of right upp er extremity with routine healing, subsequent encounter S42.301D and Hearing loss, unspecified hearing loss type, unspecified laterality H91.90 [place] [address] [address] May, [place] [address] [address] Apr, Allergic rhinitis J30.9 ; Ab dominal pain, unspecified location R10.9 and Seborrheic keratosis L82.1 [place] [address] [address] Mar, Bipolar 1 disorder, mixed F3 1.60 [place] [address] [address] Mar, Bipolar 1 disorder, mixed F3 1.60 ; Generalized anxiety disorder F41.1 and Tobacco use disorder F17.[address] [address] Feb, Excessive gas R14.3 ; Other chronic pain G89.29 ; Encounter for immunization Z23 ; Hyperlipidemia, unspecified hyperlipidemia type E78.5 ; Bipolar 1 disorder, mixed F31.60 and Other fdc (current) drug therapy Z79.899 [place] [address] [address] Feb, Bipolar 1 disorder, mixed F3 1.60 [place] [address] [address] Jan, Sciatica of right side M54.3 1 ; Low back pain M54.5 and Major depressive disorder, recurrent episode, moderate F33.1 [place] [address] [address] Jan, Bipolar 1 disorder, mixed F3 1.60 [place] [address] [address] Dec, Normal pelvic exam Z01.419 [place] [address] [address] Dec, Bipolar 1 disorder, mixed F3 1.60 [facility] [address] [id number] [address] [place] [address] Nov, Bipolar 1 disorder, mixed F3 1.60 [facility] [address] [facility] [id number] [address] [place] [phone] Nov, Bipolar 1 disorder, mixed F3 1.60 ; Generalized anxiety disorder F41.1 ; Tobacco use disorder F17.200 and 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 [facility] [address] [facility] [id number] [address] [place] [phone] Nov, [facility] [address] [facility] [id number] [address] [place] [phone] Nov, Bipolar 1 disorder, mixed F3 1.60 [facility] [address] [facility] [id number] [address] [place] [phone] October, Bipolar 1 disorder, mixed F3 1.60 [facility] [address] [facility] [id number] [address] [place] [phone] October, Bipolar 1 disorder, mixed F3 1.60 [facility] [address] [facility] [id number] [address] [place] [phone] October, [facility] [address] [facility] [id number] [address] [place] [phone] October, Bipolar 1 disorder, mixed F3 1.60 ; Generalized anxiety disorder F41.1 and Tobacco use disorder F17.200 [facility] [address] [facility] [id number] [address] [place] [id number] Sep, [facility] [address] [facility] [id number] [address] [place] [address] Sep, [facility] ; Major depressive disorder, recurrent episode, moderate F33.1 ; Allergic rhinitis J30.9 ; Bipolar 1 disorder, mixed F31.60 ; Fibromyalgia M79.7 ; Hyperlipidemia, unspecified hyperlipidemia type E78.5 ; Hormone replacement therapy Z79.890 ; Encounter for screening for lung cancer Z12.2 and Tobacco use disorder F17.200 [place] [id number] [place] [id number] [place] [phone] Sep, Bipolar 1 disorder, mixed F3 1.60 [place] [address] [place] [id number] [place] [phone] Sep, Other chronic pain G89.29 ; Hyperlipidemia, unspecified hyperlipidemia type E78.5 ; Breast cancer screening Z12.31 and Post menopausal syndrome N95.1 [place] [address] [place] [id number] [place] [address] 16 Sep, 2018 Bipolar 1 disorder, mixed F3 1.60 [place] [address] [address] Sep, Bipolar 1 disorder, mixed F3 1.60 ; Generalized anxiety disorder F41.1 and Tobacco use disorder F17.200 [place] [address] [address] 11 Sep, 2018 Gastritis without bleeding, unspecified chronicity, unspecified gastritis type K29.70 [place] [address] [address] Sep, Exercise counseling Z71.82 [place] [address] [place] [id number] [place] [phone] Aug, Exercise counseling Z71.82 [place] [address] [place] [id number] [place] [phone] Aug, Bipolar 1 disorder, mixed F3 1.60 [place] [address] [place] [id number] [place] [phone] Aug, Exercise counseling Z71.82 [place] [address] [place] [id number] [place] [address] Aug, Bipolar 1 disorder, mixed F3 1.60 [place] [address] [address] Aug, Gastritis without bleeding, unspecified chronicity, unspecified gastritis type K29.70 ; Tobacco abuse Z72.0 ; Generalized anxiety disorder F41.1 and Weight gain R63.5 [facility] [address] [place] [id number] [place] [phone] Aug, Bipolar 1 disorder, mixed F3 1.60 ; Generalized anxiety disorder F41.1 and Tobacco use disorder F17.200 [place] [address] [place] [id number] [place] [address] Jul, Bipolar 1 disorder, mixed F3 1.60 [place] [id number] [place] [address] Jul, [place] [address] [address] Jul, Bipolar 1 disorder, mixed F3 1.60 [place] [address] [address] Jul, Allergic rhinitis J30.9 ; Ma darion depressive disorder, recurrent episode, moderate F33.1 and Tobacco dependence F17.200 [place] [address] [address] Jun, [place] [address] [place] [id number] [place] [phone] Jun, [facility] [address] [place] [id number] [place] [phone] Jun, Bipolar 1 disorder, mixed F3 1.60 [place] [address] [place] [id number] [place] [phone] Jun, Bipolar 1 disorder, mixed F3 1.60 [place] [address] [place] [id number] [place] [address] Jun, Bipolar 1 disorder, mixed F3 1.60 [place] [address] [place] [id number] [place] [id number] Jun, Generalized anxiety disorder F41.1 ; Tobacco abuse Z72.0 and Major depressive disorder, recurrent episode, moderate F33.1 [place] [address] [place] [id number] [place] [phone] May, Bipolar 1 disorder, mixed F3 1.60 [place] [address] [place] [id number] [place] [phone] May, Bipolar 1 disorder, mixed F3 1.60 and Generalized anxiety disorder F41.1 [place] [address] [place] [id number] [place] [address] May, Bipolar 1 disorder, mixed F3 1.60 [place] [address] [place] [id number] [place] [phone] May, Allergic rhinitis J30.9 [place] [address] [place] [id number] [place] [address] May, Bipolar 1 disorder, mixed F3 1.60 [place] [address] [place] [id number] [place] [address] May, [place] [address] [place] [id number] [place] [phone] Apr, Allergic rhinitis J30.9 ; Dy sfunction of both eustachian tubes H69.83 ; History of bladder surgery Z98.890 and Cervicalgia M54.2 [place] [address] [place] [id number] [place] [address] Mar, Bipolar 1 disorder, mixed F3 1.60 [place] [address] [place] [id number] [place] [phone] Mar, [place] [address] [place] [id number] [place] [phone] Mar, Slow transit constipation K5 9.01 ; Encounter for immunization Z23 and Generalized anxiety disorder F41.1 [place] [address] [place] [id number] [place] [address] Feb, Bipolar 1 disorder, mixed F3 1.60 [facility] [address] [id number] [address] [place] [phone] 26 Feb, 2018 Allergic rhinitis J30.9 [facility] [address] [id number] [address] [place] [id number] 24 Feb, 2018 Bipolar 1 disorder, mixed F3 1.60 [facility] [address] [id number] [address] [place] [phone] 20 Feb, 2018 Bipolar 1 disorder, mixed F3 1.60 and Generalized anxiety disorder F41.1 [facility] [address] [id number] [address] [place] [phone] 13 Feb, 2018 Bipolar 1 disorder, mixed F3 1.60 [facility] [address] [facility] [id number] [address] [place] [id number] 11 Feb, 2018 Allergic rhinitis J30.9 [facility] [address] [id number] [address] [place] [phone] 05 Feb, 2018 [facility] [address] [id number] [address] [place] [phone] Jan, Bipolar 1 disorder, mixed F3 1.60 [facility] [address] [facility] [id number] [address] [place] [address] Jan, Low back pain M54.5 ; Hyperl ipidemia, unspecified hyperlipidemia type E78.5 and Bipolar 1 disorder, mixed F31.60 [facility] [address] [id number] [address] [place] [phone] Jan, Bipolar 1 disorder, mixed F3 1.60 [facility] [address] [facility] [id number] [address] [place] [address] Jan, Bipolar 1 disorder, mixed F3 1.60 [facility] [address] [facility] [id number] [address] [place] [id number] Jan, Bipolar 1 disorder, mixed F3 1.60 [facility] [address] [facility] [id number] [address] [place] [phone] Jan, Bipolar 1 disorder, mixed F3 1.60 [facility] [address] [facility] [id number] [address] [place] [id number] Dec, Bipolar 1 disorder, mixed F3 1.60 ; Generalized anxiety disorder F41.1 and Other fdc (current) drug therapy Z79.899 [facility] [address] [facility] [id number] [address] [place] [phone] Dec, 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 Z79.899 [facility] [address] [id number] [address] [place] [id number] Dec, Bipolar 1 disorder, mixed F3 1.60 [facility] [address] [facility] [id number] [address] [place] [id number] Dec, Bipolar 1 disorder, mixed F3 1.60 [facility] [address] [facility] [id number] [address] [place] [phone] Nov, Bipolar 1 disorder, mixed F3 1.60 [facility] [address] [facility] [id number] [address] [place] [phone] Nov, Bipolar 1 disorder, mixed F3 1.60 [facility] [address] [facility] [id number] [address] [place] [phone] Nov, Bipolar 1 disorder, mixed F3 1.60 [facility] [address] [facility] [id number] [address] [place] [phone] Nov, Allergic rhinitis J30.9 [facility] [address] [facility] [id number] [address] [place] [phone] Nov, Allergic rhinitis J30.9 [facility] [address] [facility] [id number] [address] [place] [phone] Nov, [facility] [address] [facility] [id number] [address] [place] [address] Nov, Bipolar 1 disorder, mixed F3 1.60 [facility] [address] [facility] [id number] [address] [place] [phone] Nov, Fibromyalgia M79.7 and Aller gic rhinitis J30.9 [facility] [address] [place] [id number] [address] [place] [phone] October, Bipolar 1 disorder, mixed F3 1.60 [facility] [address] [place] [id number] [place] [id number] October, Acute nasopharyngitis J00 [facility] [address] [place] [id number] [place] [id number] October, Bitten or stung by nonvenomo us insect and other nonvenomous arthropods, initial encounter W57.XXXA and Insect bite (nonvenomous) of abdominal wall, initial encounter S30.861A [facility] [address] [place] [id number] [place] [address] October, Insect bite (nonvenomous) of abdominal wall, initial encounter S30.861A ; Bitten or stung by nonvenomous insect and other nonvenomous arthropods, initial encounter W57.XXXA ; Allergic rhinitis J30.9 and Low back pain M54.5 [place] [address] [address] October, Bipolar 1 disorder, mixed F3 1.60 [facility] [address] [place] [id number] [place] [id number] October, [facility] [address] [place] [id number] [address] [place] [address] October, [facility] [address] [place] [id number] [address] [place] [phone] October, Bipolar 1 disorder, mixed F3 1.60 [place] [address] [place] [id number] [address] [place] [id number] Sep, Bipolar 1 disorder, mixed F3 1.60 [facility] [address] [place] [id number] [address] [place] [phone] Sep, Other chronic pain G89.29 [facility] [address] [facility] [id number] [address] [place] [phone] Sep, [facility] [address] [facility] [id number] [address] [place] [phone] Sep, Bipolar 1 disorder, mixed F3 1.60 [facility] [address] [facility] [id number] [address] [place] [address] Sep, Allergic rhinitis J30.9 and Sciatica of left side M54.32 [facility] [address] [facility] [id number] [address] [place] [phone] Sep, Bipolar 1 disorder, mixed F3 1.60 [facility] [address] [facility] [id number] [address] [place] [id number] Sep, Bipolar 1 disorder, mixed F3 1.60 and Generalized anxiety disorder F41.1 [facility] [address] [facility] [id number] [address] [place] [id number] Aug, [facility] [address] [facility] [id number] [address] [place] [id number] Aug, Bipolar 1 disorder, mixed F3 1.60 [facility] [address] [facility] [id number] [address] [place] [id number] Aug, Bipolar 1 disorder, mixed F3 1.60 [facility] [address] [facility] [id number] [address] [place] [id number] Aug, [facility] [address] [facility] [id number] [address] [place] [id number] Aug, Generalized anxiety disorder F41.1 [facility] [address] [facility] [id number] [address] [place] [id number] Aug, Bipolar 1 disorder, mixed F3 1.60 [facility] [address] [facility] [id number] [address] [place] [id number] Aug, Plantar wart of right foot B 07.0 [facility] [address] [facility] [id number] [address] [place] [id number] Aug, Bipolar 1 disorder, mixed F3 1.60 [facility] [address] [facility] [id number] [address] [place] [phone] Jul, Bipolar 1 disorder, mixed F3 1.60 [facility] [address] [facility] [id number] [address] [place] [id number] Jul, [facility] [address] [facility] [id number] [address] [place] [id number] Jul, Bipolar 1 disorder, mixed F3 1.60 [facility] [address] [facility] [id number] [address] [place] [id number] Jul, Generalized anxiety disorder F41.1 [facility] [address] [facility] [id number] [address] [place] [phone] 07 Jul, 2017 Bipolar 1 disorder, mixed F3 1.60 [facility] [address] [id number] [address] [place] [id number] Jul, Acute left-sided low back pa in with left-sided sciatica M54.42 [facility] [address] [facility] [id number] [address] [place] [id number] 05 Jul, 2017 Coccydynia M53.3 [facility] [address] [facility] [id number] [address] [place] [id number] Jun, Bipolar 1 disorder, mixed F3 1.60 [facility] [address] [facility] [id number] [address] [place] [phone] Jun, Acute nasopharyngitis J00 [facility] [address] [facility] [id number] [address] [place] [id number] Jun, Bipolar 1 disorder, mixed F3 1.60 [facility] [address] [facility] [id number] [address] [place] [phone] Jun, Fibromyalgia M79.7 [facility] [address] [id number] [address] [place] [id number] Jun, Bipolar 1 disorder, mixed F3 1.60 [facility] [address] [place] [address] Jun, Fibromyalgia M79.7 and Bipol ar 1 disorder, mixed F31.60 [facility] [address] [id number] [address] [place] [id number] May, Bipolar 1 disorder, mixed F3 1.60 ; Generalized anxiety disorder F41.1 and Other fdc (current) drug therapy Z79.899 [place] [id number] [place] [id number] May, Bipolar 1 disorder, mixed F3 1.60 [facility] [address] [address] 14 May, 2017 Cough R05 and Body aches R52 [facility] [address] [address] 10 May, 2017 Bladder spasm N32.89 [address] Acu te cystitis without hematuria N30.00 [place] [address] [address] May, Bipolar 1 disorder, mixed F3 1.60 [place] [id number] [address] Apr, [place] [address] [address] Apr, Major depressive disorder, r ecurrent episode, moderate F33.1 and Encounter for immunization Z23 [facility] [address] [place] [phone] Apr, Bipolar 1 disorder, mixed F3 1.60 [place] [address] [place] [id number] [place] [address] Apr, Bipolar 1 disorder, mixed F3 1.60 [place] [address] [address] Apr, Bipolar 1 disorder, mixed F3 1.60 [facility] [address] [id number] [address] [place] [phone] Apr, Yeast vaginitis B37.3 [facility] [address] [facility] [id number] [address] [place] [id number] 09 Apr, 2017 Bipolar 1 disorder, mixed F3 1.60 [facility] [address] [id number] [address] [place] [address] 07 Apr, [address]03[address] for immunization Z23 [facility] [address] [id number] [address] [place] [id number] Apr, Bipolar 1 disorder, mixed F3 1.60 [facility] [address] [id number] [address] [place] [id number] Mar, Bipolar 1 disorder, mixed F3 1.60 [place] [address] [place] [id number] [address] [place] [id number] Mar, Bipolar 1 disorder, mixed F3 1.60 [facility] [address] [id number] [address] [place] [id number] Mar, Imbalance R26.89 and Encount er for immunization Z23 [facility] [address] [id number] [address] [place] [id number] Mar, Generalized anxiety disorder F41.1 [facility] [address] [id number] [address] [place] [phone] Mar, Bipolar 1 disorder, mixed F3 1.60 [facility] [address] [id number] [address] [place] [address] Mar, Generalized anxiety disorder F41.1 [facility] [address] [id number] [address] [place] [address] Mar, Bipolar 1 disorder, mixed F3 1.60 [facility] [address] [id number] [address] [place] [address] Mar, Bipolar 1 disorder, mixed F3 1.60 [place] [address] [facility] [id number] [address] [place] [phone] Feb, Bipolar 1 disorder, mixed F3 1.60 [place] [address] [facility] [id number] [address] [place] [address] Feb, Bipolar 1 disorder, mixed F3 1.60 and Generalized anxiety disorder F41.1 [place] [address] [place] [id number] [address] [place] [address] Feb, Gastritis without bleeding, unspecified chronicity, unspecified gastritis type K29.70 ; Hammer toe of right foot M20.41 and Other viral warts B07.8 [place] [address] [place] [id number] [address] [place] [id number] 20 Feb, 2017 Bipolar 1 disorder, mixed F3 1.60 [place] [address] [place] [id number] [address] [place] [address] Feb, Bipolar 1 disorder, mixed F3 1.60 [place] [address] [place] [id number] [address] [place] [id number] 05 Feb, 2017 Bipolar 1 disorder, mixed F3 1.60 [place] [address] [place] [id number] [address] [place] [phone] Jan, Encounter for screening mamm ogram for breast cancer Z12.31 ; Other viral warts B07.8 and Allergic rhinitis J30.9 [place] [address] [place] [id number] [address] [place] [address] Jan, Bipolar 1 disorder, mixed F3 1.60 [place] [address] [place] [id number] [address] [place] [phone] Jan, Bipolar 1 disorder, mixed F3 1.60 [place] [address] [place] [id number] [address] [place] [address] Jan, [place] [address] [place] [id number] [address] [place] [phone] Jan, Bipolar 1 disorder, mixed F3 1.60 [place] [id number] [facility] [id number] [address] [place] [phone] Jan, Bipolar 1 disorder, mixed F3 1.60 [place] [address] [place] [id number] [address] [place] [address] Jan, Allergic rhinitis J30.9 ; He maturia R31.9 and Colon cancer screening Z12.11 [place] [address] [place] [id number] [address] [place] [address] Dec, Bipolar 1 disorder, mixed F3 1.60 [place] [address] [place] [id number] [address] [place] [address] Dec, Bipolar 1 disorder, mixed F3 1.60 ; Generalized anxiety disorder F41.1 and 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 [place] [address] [place] [id number] [address] [place] [address] Dec, Bipolar 1 disorder, mixed F3 1.60 [place] [address] [place] [id number] [address] [place] [address] Dec, Bipolar 1 disorder, mixed F3 1.60 [place] [address] [place] [id number] [address] [place] [phone] Dec, Bipolar 1 disorder, mixed F3 1.60 [place] [address] [place] [id number] [address] [place] [id number] Dec, Low back pain M54.5 and Recu rrent urinary tract infection N39.0 [place] [address] [facility] [id number] [address] [place] [address] Nov, Bipolar 1 disorder, mixed F3 1.60 [place] [address] [place] [id number] [address] [place] [address] Nov, Bipolar 1 disorder, mixed F3 1.60 [place] [address] [place] [id number] [address] [place] [address] Nov, Bipolar 1 disorder, mixed F3 1.60 [place] [address] [address] Nov, Bipolar 1 disorder, mixed F3 1.60 [place] [address] [address] Nov, [place] [address] [address] Nov, Anesthesia of skin R20.0 ; F requent UTI N39.0 ; Tobacco abuse Z72.0 and Colon cancer screening Z12.11 [place] [address] [address] Nov, Bipolar 1 disorder, mixed F3 1.60 [place] [address] [address] October, Bipolar 1 disorder, mixed F3 1.60 [place] [address] [address] October, Bipolar 1 disorder, mixed F3 1.60 [place] [address] [address] October, Bipolar 1 disorder, mixed F3 1.60 [place] [address] [address] October, Bipolar 1 disorder, mixed F3 1.60 [place] [address] [address] October, Bipolar 1 disorder, mixed F3 1.60 [place] [address] [address] October, Cervicalgia M54.2 and Bipola r 1 disorder, mixed F31.60 [place] [address] [address] October, Hypertension I10 ; Hyperlipi demia, unspecified hyperlipidemia type E78.5 and Family history of thyroid disease Z83.49 [place] [address] [address] October, [place] [address] [address] October, Hypertension I10 ; Hyperlipi demia, unspecified hyperlipidemia type E78.5 and Family history of thyroid problem Z83.49 [place] [address] [address] October, Bipolar 1 disorder, mixed F3 1.60 [place] [address] [address] Sep, Bipolar 1 disorder, mixed F3 1.60 [place] [address] [address] Sep, Bipolar 1 disorder, mixed F3 1.60 [place] [address] [address] Sep, Bipolar 1 disorder, mixed F3 1.60 [place] [address] [address] Sep, History of colon polyps Z86. 010 and Hematochezia K92.1 [place] [address] [address] Sep, Major depressive disorder, r ecurrent episode, moderate F33.1 [place] [address] [address] Sep, Bipolar 1 disorder, mixed F3 1.60 [place] [address] [address] Aug, Hot flashes due to menopause N95.1 [place] [address] [place] [id number] [place] [address] Aug, Bipolar 1 disorder, mixed F3 1.60 [place] [address] [address] Aug, [place] [address] [address] Aug, Bipolar 1 disorder, mixed F3 1.60 [place] [address] [address] Aug, Bipolar 1 disorder, mixed F3 1.60 [place] [address] [address] Aug, Hot flashes due to menopause N95.1 ; Cervicalgia M54.2 and Ataxia R27.0 [place] [address] [address] Jul, Bipolar 1 disorder, mixed F3 1.60 [place] [address] [address] Jul, Bipolar 1 disorder, mixed F3 1.60 [place] [address] [address] Jul, Bipolar 1 disorder, mixed F3 1.60 [place] [address] [address] Jul, Bipolar 1 disorder, mixed F3 1.60 [place] [address] [address] Jul, Bipolar 1 disorder, mixed F3 1.60 [place] [address] [address] Jul, Cervicalgia M54.2 ; Tremor R 25.1 ; Hearing abnormally acute, unspecified laterality H93.239 ; Alopecia L65.9 ; Encounter for immunization Z23 and Family history of thyroid disease Z83.49 [place] [address] [place] [id number] 06 Jul, 2016 Bipolar 1 disorder, mixed F3 1.60 [place] [address] [address] Jun, [place] [address] [facility] [id number] [address] [place] [address] Jun, Hearing disorder, unspecifie d laterality H93.299 [facility] [address] [facility] [id number] [address] [place] [address] Jun, Bipolar 1 disorder, mixed F3 1.60 [facility] [address] [facility] [id number] [address] [place] [address] Jun, Bipolar 1 disorder, mixed F3 1.60 [facility] [address] [id number] [address] [place] [address] Jun, Allergic rhinitis J30.9 [facility] [address] [facility] [id number] [address] [place] [address] Jun, Bipolar 1 disorder, mixed F3 1.60 [facility] [address] [facility] [id number] [address] [place] [address] Jun, Bipolar 1 disorder, mixed F3 1.60 [facility] [address] [facility] [id number] [address] [place] [phone] Jun, Allergic rhinitis J30.9 [facility] [address] [facility] [id number] [address] [place] [id number] Jun, Allergic rhinitis J30.9 [facility] [address] [facility] [id number] [address] [place] [address] Jun, Bipolar 1 disorder, mixed F3 1.60 [facility] [address] [facility] [id number] [address] [place] [address] May, Bipolar 1 disorder, mixed F3 1.60 [facility] [address] [facility] [id number] [address] [place] [address] May, Bipolar 1 disorder, mixed F3 1.60 [facility] [address] [facility] [id number] [address] [place] [address] May, [facility] [address] [facility] [id number] [address] [place] [phone] May, Bipolar 1 disorder, mixed F3 1.60 [facility] [address] [facility] [id number] [address] [place] [address] May, Bipolar 1 disorder, mixed F3 1.60 [facility] [address] [facility] [id number] [address] [place] [address] May, [facility] [address] [place] [id number] [address] [place] [address] May, [facility] [address] [facility] [id number] [address] [place] [address] May, [facility] [address] [address] May, Abdominal pain, unspecified location R10.9 [facility] [address] [place] [id number] [place] [address] May, [facility] [address] [place] [id number] [address] [place] [address] Apr, Hematuria R31.9 ; Ataxia R27 .0 and Hearing loss, unspecified laterality H91.90 [facility] [address] [address] Apr, Bipolar 1 disorder, mixed F3 1.60 [facility] [address] [id number] [address] [place] [address] Apr, Acute effusion of both middl e ears H65.193 [facility] [address] [facility] [id number] [address] [place] [address] Apr, Hematuria R31.9 and Pyelonep hritis N12 [facility] [address] [place] [id number] [address] [place] [address] Apr, [facility] [address] [facility] [id number] [address] [place] [address] Mar, Bipolar 1 disorder, mixed F3 1.60 [facility] [address] [place] [id number] [address] [place], [place] [id number] Mar, [place] [address] [place] [id number] [address] [place] [address] Mar, Bipolar 1 disorder, mixed F3 1.60 [place] [address] [place] [id number] [address] [place] [address] Mar, Bipolar 1 disorder, mixed F3 1.60 [place] [address] [place] [id number] [address] [place] [address] Mar, Encounter for immunization Z 23 and Gastritis without bleeding, unspecified chronicity, unspecified gastritis type K29.70 [place] [address] [place] [id number] [address] [place] [id number] Mar, Bipolar 1 disorder, mixed F3 1.60 and Grief F43.20 [place] [address] [place] [address] Mar, Gastritis without bleeding, unspecified chronicity, unspecified gastritis type K29.70 [place] [address] [place] [id number] [place] [address] Mar, Bipolar 1 disorder, mixed F3 1.60 [place] [address] [place] [address] Mar, Gastritis without bleeding, unspecified chronicity, unspecified gastritis type K29.70 [place] [address] [place] [address] Mar, [place] [address] [facility] [id number] [address] [place] [address] Feb, Bipolar 1 disorder, mixed F3 1.60 [place] [address] [place] [id number] [address] [place] [address] Feb, Bipolar 1 disorder, mixed F3 1.60 and Grief F43.20 [place] [address] [place] [id number] [address] [place] [address] Feb, Gastritis without bleeding, unspecified chronicity, unspecified gastritis type K29.70 [facility] [address] [place] [id number] [address] [place] [id number] 14 Feb, 2016 Bipolar 1 disorder, mixed F3 1.60 [facility] [address] [facility] [id number] [address] [place] [address] Feb, Gastroesophageal reflux dise ase, esophagitis presence not specified K21.9 [facility] [address] [place] [id number] [address] [place] [address] Jan, Bipolar 1 disorder, mixed F3 1.60 [facility] [address] [place] [address] Jan, Bipolar 1 disorder, mixed F3 1.60 and Unsteady gait R26.81 [place] [address] [place] [id number] [address] [place] [address] Jan, Bipolar 1 disorder, mixed F3 1.60 [facility] [address] [address] Jan, Bipolar 1 disorder, mixed F3 1.60 and Other fdc (current) drug therapy Z79.899 [place] [address] [address] Jan, Bipolar 1 disorder, mixed F3 1.60 [facility] [address] [place] [id number] [address] [place] [address] Jan, Bipolar 1 disorder, mixed F3 1.60 [facility] [address] [address] Jan, Bipolar 1 disorder, mixed F3 1.60 ; Grief F43.20 and Other fdc (current) drug therapy Z79.899 [place] [address] [place] [id number] [address] [place] [address] Jan, Bipolar 1 disorder, mixed F3 1.60 [facility] [address] [place] [id number] [address] [place] [address] Dec, [facility] [address] [facility] [id number] [address] [place] [address] Dec, Bipolar 1 disorder, mixed F3 1.60 ; Vitamin D deficiency, unspecified E55.9 ; H/O allergic rhinitis Z87.09 ; Other chronic pain G89.29 and Dorsalgia, unspecified M54.9 [facility] [address] [facility] [id number] [address] [place] [address] Dec, [facility] [address] [facility] [id number] [address] [place] [id number] Dec, Bipolar 1 disorder, mixed F3 1.60 [place] [address] [place] [id number] [address] [place] [address] Dec, Major depressive disorder, r ecurrent episode, moderate F33.1 [place] [address] [place] [id number] [address] [place] [address] Dec, Major depressive disorder, r ecurrent episode, moderate F33.1 [place] [address] [facility] [id number] [address] [place] [address] Nov, [place] [address] [place] [id number] [address] [place] [address] Nov, Bipolar 1 disorder, mixed F3 1.60 [facility] [address] [place] [id number] [address] [place] [address] Nov, Major depressive disorder, r ecurrent episode, moderate F33.1 [facility] [address] [facility] [id number] [address] [place] [address] Nov, Cervicalgia M54.2 ; Arthralg ia of hip, unspecified laterality M25.559 ; Allergic rhinitis J30.9 and Hormone replacement therapy Z79.890 [facility] [address] [facility] [id number] [address] [place] [address] Nov, Other seasonal allergic rhin itis J30.2 [facility] [address] [facility] [id number] [address] [place] [id number] October, Major depressive disorder, r ecurrent episode, moderate F33.1 [place] [address] [facility] [id number] [address] [place] [phone] October, Major depressive disorder, r ecurrent episode, moderate F33.1 and Arthralgia of hip, unspecified laterality M25.559 [place] [address] [address] [place] [id number] [address] [place] [phone] October, Grief F43.20 ; Hypertension I10 ; Hyperlipidemia, unspecified hyperlipidemia type E78.5 ; Other chronic pain G89.29 and Allergic rhinitis, unspecified allergic rhinitis type J30.9 [place] [address] [address] [place] [id number] [address] [place] [id number] October, Major depressive disorder, r ecurrent episode, moderate F33.1 [place] [address] [address] [place] [id number] [address] [place] [phone] Sep, Major depressive disorder, r ecurrent episode, moderate F33.1 [place] [address] [facility] [id number] [address] [place] [id number] Sep, [place] [address] [address] [place] [id number] [address] [place] [phone] Sep, Major depressive disorder, r ecurrent episode, moderate F33.1 [place] [address] [address] [place] [id number] [address] [place] [phone] Sep, Grief F43.20 [place] [address] [place] [id number] [address] [place] [id number] Aug, Major depressive disorder, r ecurrent episode, moderate F33.1 [place] [address] [facility] [id number] [address] [place] [id number] Aug, Bipolar 1 disorder, mixed F3 1.60 [place] [address] [address] [place] [id number] [address] [place] [phone] Aug, Allergic rhinitis J30.9 ; Ce rvicalgia M54.2 and Low back pain M54.5 [facility] [address] [facility] [id number] [address] [place] [id number] Aug, Major depressive disorder, r ecurrent episode, moderate F33.1 [facility] [address] [facility] [id number] [address] [place] [phone] Aug, Sinusitis J32.9 and Tobacco dependence F17.200 [facility] [address] [facility] [id number] [address] [place] [phone] Aug, [facility] [address] [place] [id number] [address] [place] [phone] Aug, Depressive disorder, not els ewhere classified F32.9 ; Hormone replacement therapy Z79.[address] scan, head R93.0 [facility] [address] [place] [id number] [address] [place] [id number] Aug, Major depressive disorder, r ecurrent episode, moderate F33.1 [facility] [address] [facility] [id number] [address] [place] [id number] Jul, Major depressive disorder, r ecurrent episode, moderate F33.1 [facility] [address] [facility] [id number] [address] [place] [phone] Jul, Abdominal pain R10.9 and Hyp ertension I10 [facility] [address] [facility] [id number] [address] [place] [phone] Jul, [facility] [address] [facility] [id number] [address] [place] [phone] Jul, Major depressive disorder, r ecurrent episode, moderate F33.1 [facility] [address] [facility] [id number] [address] [place] [phone] Jul, [facility] [address] [facility] [id number] [address] [place] [id number] Jul, [facility] [address] [id number] [address] [place] [id number] Jun, [facility] [address] [id number] [address] [place] [id number] Jun, Depressive disorder, not els ewhere classified F32.9 [facility] [address] [id number] [address] [place] [id number] Jun, [facility] [address] [id number] [address] [place] [id number] Jun, [facility] [address] [id number] [address] [place] [id number] Jun, Arthralgia of hip, unspecifi ed laterality M25.559 ; Bruising, spontaneous R23.3 and Night sweats R61 [facility] [address] [id number] [address] [place] [id number] Jun, [facility] [address] [facility] [id number] [address] [place] [id number] Jun, [facility] [address] [id number] [address] [place] [id number] May, [facility] [address] [id number] [address] [place] [id number] May, Myalgia M79.1 and Screening, lipid Z13.220 [facility] [address] [facility] [id number] [address] [place] [id number] Apr, Status post cervical spinal fusion Z98.1 ; Fibromyalgia M79.7 and Unsteady gait R26.81 [facility] [address] [id number] [address] [place] [id number] Nov, [facility] [address] [id number] [address] [place] [id number] Nov, [facility] [address] [id number] [address] [place] [id number] October, [facility] [address] [facility] [id number] [address] [place] [id number] October, [facility] [address] [id number] [address] [place] [id number] October, [facility] [address] [id number] [address] [place] [id number] October, [facility] [address] [id number] [address] [place] [id number] October, [facility] [address] [id number] [address] [place] [phone] October, Dysuria 788.1 ; Nausea 787.0 2 and Urinary tract infection 599.0 [facility] [address] [id number] [address] [place] [id number] Sep, [facility] [address] [id number] [address] [place] [id number] Sep, [facility] [address] [id number] [address] [place] [phone] Aug, [facility] [address] [id number] [address] [place] [phone] Aug, [facility] [address] [id number] [address] [place] [id number] Aug, [facility] [address] [id number] [address] [place] [phone] Aug, [facility] [address] [id number] [address] [place] [id number] Aug, [facility] [address] [id number] [address] [place] [phone] Aug, [facility] [address] [id number] [address] [place] [phone] Aug, [facility] [address] [id number] [address] [place] [id number] Aug, [facility] [address] [id number] [address] [place] [id number] 19 Aug, 2014 [facility] [address] [id number] [facility] [place] [address] 18 Aug, 2014 [facility] [address] [id number] [address] [place] [address], [place] [id number] 18 Aug, 2014 [facility] [address] [id number] [address] [place] [address], [place] [address] 13 Aug, 2014 [facility] [address] [id number] [address] [place] [address], [place] [address] 13 Aug, 2014 [facility] [address] [id number] [address] [place] [address], [place] [address] Aug, [facility] [address] [id number] [address] [place] [address], [place] [address] Aug, [facility] [address] [id number] [address] [place] [address], [place] [address] Aug, [facility] [address] [id number] [address] [place] [address], [place] [address] Aug, [facility] [address] [id number] [address] [place] [address], [place] [address] 05 Aug, 2014 [facility] [address] [id number] [address] [place] [address], [place] [address] 05 Aug, 2014 [facility] [address] [id number] [address] [place] [address], [place] [address] Aug, [facility] [address] [id number] [address] [place] [address], [place] [address] Aug, [facility] [address] [id number] [address] [place] [address], [place] [address] Aug, [facility] [address] [id number] [address] [place] [address], [place] [address] Jul, [facility] [address] [id number] [address] [place] [address], [place] [address] Jul, [facility] [address] [id number] [address] [place] [address], [place] [address] Jul, 2014 [facility] [address] [id number] [address] [place] [address], [place] [address] Jul, 2014 [facility] [address] [id number] [address] [place] [address], [place] [address] Jul, 2014 [facility] [address] [id number] [address] [place] [address], [place] [address] Jul, 2014 [facility] [address] [id number] [address] [place] [address], [place] [address] Jul, 2014 [facility] [address] [id number] [address] [place] [address], [place] [address] Jul, 2014 [facility] [address] [id number] [address] [place] [address], [place] [address] Jul, [facility] [address] [id number] [address] [place] [address], [place] [address] Jul, 2014 [facility] [address] [id number] [address] [place] [address], [place] [address] Jul, [facility] [address] [id number] [address] [place] [address], [place] [address] Jul, [facility] [address] [id number] [address] [place] [address], [place] [address] Jul, [facility] [address] [id number] [address] [place] [id number] Jul, [facility] [address] [id number] [address] [place] [address], [place] [address] Jun, [facility] [address] [id number] [address] [place] [address], [place] [address] Jun, [facility] [address] [id number] [address] [place] [address], [place] [address] Jun, [facility] [address] [id number] [address] [place] [address], [place] [address] Jun, [facility] [address] [id number] [address] [place] [address], [place] [address] Jun, [facility] [address] [id number] [address] [place] [address], [place] [address] Jun, [facility] [address] [id number] [address] [place] [address], [place] [address] May, [facility] [address] [id number] [address] [place] [address], [place] [address] May, [facility] [address] [id number] [address] [place] [address], [place] [address] May, [facility] [address] [id number] [address] [place] [address], [place] [address] May, [facility] [address] [id number] [address] [place] [address], [place] [address] May, [facility] [address] [id number] [address] [place] [address], [place] [address] May, [facility] [address] [id number] [address] [place] [address], [place] [address] Apr, [facility] [address] [id number] [address] [place] [address], [place] [address] Apr, [facility] [address] [id number] [address] [place] [address], [place] [address] Apr, [facility] [address] [id number] [address] [place] [address], [place] [address] Apr, [facility] [address] [id number] [address] [place] [address], [place] [address] Apr, [facility] [address] [id number] [address] [place] [address], [place] [address] Apr, [facility] [address] [id number] [address] [place] [address], [place] [address] Mar, [facility] [address] [id number] [address] [place] [address], [place] [address] Mar, 2013 [facility] [address] [id number] [address] [place] [address], [place] [address] Mar, 2013 [facility] [address] [id number] [address] [place] [address], [place] [address] Mar, 2013 [facility] [address] [id number] [address] [place] [address], [place] [address] Mar, 2013 [facility] [address] [id number] [address] [place] [address], [place] [address] Mar, 2013 [facility] [address] [id number] [address] [place] [address], [place] [address] Mar, 2013 [facility] [address] [id number] [address] [place] [address], [place] [address] Mar, 2013 [facility] [address] [id number] [address] [place] [address], [place] [address] Mar, 2013 [facility] [address] [id number] [address] [place] [address], [place] [address] Mar, [facility] [address] [id number] [address] [place] [address], [place] [address] Mar, [facility] [address] [id number] [address] [place] [address], [place] [address] Mar, [facility] [address] [id number] [address] [place] [address], [place] [address] 30 Feb, 2013 [facility] [address] [id number] [address] [place] [address], [place] [address] 29 Feb, 2013 [facility] [address] [id number] [address] [place] [address], [place] [address] 29 Feb, 2013 [facility] [address] [id number] [address] [place] [address], [place] [address] 23 Feb, 2013 [facility] [address] [id number] [address] [place] [address], [place] [address] Feb, [facility] [address] [id number] [facility] [place] [address] Feb, [facility] [address] [id number] [address] [place] [address], [place] [address] Feb, [facility] [address] [id number] [address] [place] [address], [place] [address] Jan, [facility] [address] [id number] [address] [place] [address], [place] [address] Jan, [facility] [address] [id number] [address] [place] [address], [place] [address] Jan, [facility] [address] [id number] [address] [place] [address], [place] [address] Dec, [facility] [address] [id number] [address] [place] [address], [place] [address] Dec, [facility] [address] [id number] [address] [place] [address], [place] [address] Dec, [facility] [address] [id number] [address] [place] [address], [place] [address] Dec, [facility] [address] [id number] [address] [place] [address], [place] [address] Sep, [facility] [address] [id number] [address] [place] [address], [place] [address] Sep, [facility] [address] [id number] [address] [place] [address], [place] [address] Sep, [facility] [address] [id number] [address] [place] [address], [place] [address] Sep, [facility] [address] [id number] [address] [place] [address], [place] [address] Sep, [facility] [address] [id number] [address] [place] [address], [place] [address] Sep, [facility] [address] [id number] [address] [place] [address], [place] [address] Sep, [facility] [address] [id number] [address] [place] [address], [place] [address] Sep, [facility] [address] [id number] [address] [place] [address], [place] [address] Aug, [facility] [address] [id number] [address] [place] [address], [place] [address] Aug, [facility] [address] [id number] [address] [place] [address], [place] [address] May, [facility] [address] [id number] [address] [place] [address], [place] [address] May, [facility] [address] [id number] [address] [place] [address], [place] [address] Apr, [facility] [address] [id number] [address] [place] [address], [place] [address] Apr, [facility] [address] [id number] [address] [place] [address], [place] [address] Apr, [facility] [address] [id number] [address] [place] [address], [place] [address] Apr, [facility] [address] [id number] [address] [place] [address], [place] [address] Apr, [facility] [address] [id number] [address] [place] [address], [place] [address] Apr, [facility] [address] [id number] [address] [place] [address], [place] [address] May, [facility] [address] [id number] [address] [place] [address], [place] [address] May, [facility] [address] [id number] [address] [place] [address], [place] [address] May, [facility] [address] [id number] [address] [place] [address], [place] [address] May, [facility] [address] [id number] [address] [place] [address], [place] [address] 13 May, 2012 [facility] [address] [id number] [address] [place] [address], [place] [address] 13 May, 2012 [facility] [address] [id number] [address] [place] [address], [place] [address] 13 Apr, 2012 [facility] [address] [id number] [address] [place] [address], [place] [address] Apr, [facility] [address] [id number] [address] [place] [address], [place] [address] 08 Apr, 2012 [facility] [address] [id number] [address] [place] [address], [place] [address] Apr, [facility] [address] [id number] [address] [place] [address], [place] [address] Apr, [facility] [address] [id number] [address] [place] [address], [place] [address] Apr, [facility] [address] [id number] [address] [place] [address], [place] [address] Apr, [facility] [address] [id number] [address] [place] [address] Apr, [facility] [address] [id number] [address] [place] [address] Apr, [facility] [address] [id number] [address] [place] [address] Apr, [facility] [address] [id number] [address] [place] [address], [place] [address] Mar, [facility] [address] [id number] [address] [place] [address] Mar, [facility] [address] [id number] [address] [place] [address] Mar, [facility] [address] [id number] [address] [place] [address] Mar, [facility] [address] [id number] [address] [place] [address], [place] [address] Mar, [facility] [address] [id number] [address] [place] [address], [place] [address] Mar, [facility] [address] [id number] [address] [place] [address], [place] [address] Mar, [facility] [address] [id number] [address] [place] [address], [place] [address] Mar, [facility] [address] [id number] [address] [place] [address], [place] [address] Mar, [facility] [address] [id number] [address] [place] [address], [place] [address] Feb, [facility] [address] [id number] [address] [place] [address], [place] [address] Feb, [facility] [address] [id number] [address] [place] [address], [place] [address] Feb, [facility] [address] [id number] [address] [place] [address], [place] [address] Jan, [facility] [address] [id number] [address] [place] [address], [place] [address] Jan, [facility] [address] [id number] [address] [place] [address], [place] [address] Jan, [facility] [address] [id number] [address] [place] [address], [place] [address] Jan, [facility] [address] [id number] [address] [place] [address], [place] [address] Jan, [facility] [address] [id number] [address] [place] [address], [place] [address] Jan, [facility] [address] [id number] [address] [place] [address], [place] [address] Jan, [facility] [address] [id number] [address] [place] [address], [place] [address] Jan, [facility] [address] [id number] [address] [place] [address], [place] [address] Jan, [facility] [address] [id number] [address] [place] [address], [place] [address] Jan, [facility] [address] [id number] [address] [place] [address], [place] [address] Dec, [facility] [address] [id number] [address] [place] [address], [place] [address] Dec, [facility] [address] [id number] [address] [place] [address], [place] [address] Dec, [facility] [address] [id number] [address] [place] [address], [place] [address] Dec, [facility] [address] [id number] [address] [place] [address], [place] [id number] Nov, [facility] [address] [id number] [address] [place] [address], [place] [address] Nov, [facility] [address] [id number] [address] [place] [address], [place] [address] Nov, [facility] [address] [id number] [address] [place] [address], [place] [address] October, [facility] [address] [id number] [address] [place] [address], [place] [id number] October, [facility] [address] [id number] [address] [place] [address], [place] [address] October, [facility] [address] [id number] [address] [place] [address], [place] [address] October, [facility] [address] [id number] [address] [place] [address], [place] [id number] October, [facility] [address] [id number] [address] [place] [address], [place] [address] October, [facility] [address] [id number] [address] [place] [id number] Aug, [facility] [address] [id number] [address] [place] [id number] Mar, [facility] [address] [facility] [id number] [address] [place] [id number] Nov, [facility] [address] [id number] [address] [place] [phone] May, [facility] [address] [facility] [id number] [address] [place] [id number] May, [facility] [address] [facility] [id number] [address] [place] [id number] Apr, [facility] [address] [facility] [id number] [address] [place] [id number] Mar, [facility] [address] [facility] [id number] [address] [place] [id number] Mar, IMMUNIZATIONS No Known Immunizations SOCIAL HISTORY Never Assessed REASON FOR VISIT PLAN OF CARE VITAL SIGNS Height 64 in 2014-08-11 Weight 150.6 lbs 2014-08-11 Temperature 97.6 degrees Fahrenheit 2014-08-11 Heart Rate 80 bpm 2014-08-11 Respiratory Rate 18 2014-08-11 Blood pressure systolic 160 mmHg 2014-08-11 Blood pressure diastolic 90 mmHg 2014-08-11 MEDICATIONS Unknown Medications RESULTS No Results PROCEDURES No Known procedures INSTRUCTIONS MEDICATIONS ADMINISTERED No Known Medications MEDICAL (GENERAL) HISTORY Type Description Date Medical History Severe spinal stenosis [facility] cervical spine CT and MRI done 10/2014 at FU with Neurosurgery at Medical History Migraine BEAR Evaluated and tx at [facility] Medical History Sensorineural hearing loss (SNHL) of [...]
--- OUTSIDE RECORDS SUMMARY | 2020-02-02 19:42 | XMS REPORT ---
Author Author Sydnie STEPHENSON Organization [facility] Address [address] [place] [address] Care Team Providers Care Weather Observer Name Role Phone DAVEY STEPHENSON Unavailable PROBLEMS Type Condition ICD9-CM Code HGT35-IT Code Onset Dates Condition S tatus SNOMED Code Problem Bruising, spontaneous R23.3 Active 779095469 Problem Arthralgia of hip, unspecified laterality M25.559 Active 98122548 Problem Night sweats R61 Active 5245500 0 Problem Grief F43.20 Active 77380305 Problem Hypertension I10 Active 4287644 3 Problem Hyperlipidemia, unspecified hyperlipidemia type E7 8.5 Active 56974530 Problem Other chronic pain G89.29 Active 8 0277413 Problem Bladder spasm N32.89 Active 423782 006 Problem Age-related osteoporosis without current pathological fracture M81.0 Active 38208638 Problem Fibromyalgia M79.7 Active 9157962 7 Problem Hormone replacement therapy Z79.890 Ac tive 231185694 Problem Sensorineural hearing loss (SNHL) of both ears H90 .3 Active 886243661 Problem Abnormal CT scan, head R93.0 Active 299647329 Problem Allergic rhinitis J30.9 Active 61 007591 Problem Hearing loss, unspecified laterality H91.90 Active 27149641 Problem Generalized anxiety disorder F41.1 A ctive 50755394 Problem History of colon polyps Z86.010 Active 457170708 Problem Hammer toe of right foot M20.41 Activ e 797853712 Problem Hematuria, unspecified type R31.9 Ac tive 29805010 Problem Major depressive disorder, recurrent episode, moderate F33.1 Active 536953578 Problem Imbalance R26.89 Active 071989905 Problem Acute left-sided low back pain with left-sided sciatica M54.42 Active 642020901 Problem Sciatica of left side M54.32 Active 98493446 Problem Plantar wart of right foot B07.0 Act mitchell [id number] Problem Hearing loss, unspecified hearing loss type, uns pecified laterality H91.90 Active 85120357 Problem Bipolar 1 disorder, mixed F31.60 Acti ve 34257089 Problem Osteoporotic compression fracture of spine with delayed healing M80.88XG Active 17311866 Problem Gastritis without bleeding, unspecified chronicity, unspecified gastritis type K29.70 Active 365708456 Problem Ataxia R27.0 Active 55940287 Problem Slow transit constipation K59.01 Acti ve 96991371 Problem Tobacco use disorder F17.200 Active 190913987 Problem Post menopausal syndrome N95.1 Activ e 850300108 Problem Sciatica of right side M54.31 Active 07229678 ALLERGIES No Information ENCOUNTERS Encounter Location Date Diagnosis [place] [address] [place] [address] 08 Sep, 2019 [place] [address] [place] [id number] Sep, [place] [address] [place] [address] Aug, [place] [address] [address] Aug, Bipolar 1 disorder, mixed F31.60 [place] [address] [place] [id number] 04 Aug, 2019 Age-related osteoporosis with current pa thological fracture with routine healing, subsequent encounter M80.00XD [place] [address] [address] 24 Jul, 2019 Age-related osteoporosis with current pa thological fracture with routine healing, subsequent encounter M80.00XD [place] [address] [address] 24 Jul, 2019 Osteoporotic compression fracture of spi ne with delayed healing M80.88XG and Tobacco use disorder F17.200 [place] [address] [address] 11 Jul, 2019 Bipolar 1 disorder, mixed F31.60 [place] [address] [address] 07 Jul, 2019 [facility] [address] [address] Jul, Tobacco use disorder F17.200 [facility] [address] [address] 15 Jun, 2019 Bipolar 1 disorder, mixed F31.60 [facility] [address] [address] 07 Jun, 2019 Bipolar 1 disorder, mixed F31.60 ; Gener alized anxiety disorder F41.1 and Tobacco use disorder F17.200 [facility] [address] [address] Jun, Tobacco use disorder F17.200 [facility] [address] [address] May, [facility] [address] [address] May, Compression fracture of L1 vertebra with routine healing, subsequent encounter S32.010D [facility] [address] [address] May, [facility] [address] [address] May, [facility] [address] [address] May, [facility] [address] [address] May, [facility] [address] [address] May, [facility] [address] [address] May, [facility] [address] [address] May, [facility] [address] [address] May, Bipolar 1 disorder, mixed F31.[address] [address] May, Closed fracture of right upper extremity with routine healing, subsequent encounter S42.301D and Hearing loss, unspecified hearing loss type, unspecified laterality H91.90 [place] [address] [address] May, [address] Apr, Allergic rhinitis J30.9 ; Abdominal pain , unspecified location R10.9 and Seborrheic keratosis L82.[address] [address] Mar, Bipolar 1 disorder, mixed F31.[address] [address] Mar, Bipolar 1 disorder, mixed F31.60 ; Gener alized anxiety disorder F41.1 and Tobacco use disorder F17.[address] [address] Feb, Excessive gas R14.3 ; Other chronic pain G89.29 ; Encounter for immunization Z23 ; Hyperlipidemia, unspecified hyperlipidemia type E78.5 ; Bipolar 1 disorder, mixed F31.60 and Other usp (current) drug therapy Z79.[address] [address] Feb, Bipolar 1 disorder, mixed F31.[address] [address] Jan, Sciatica of right side M54.31 ; Low back pain M54.5 and Major depressive disorder, recurrent episode, moderate F33.[address] [address] Jan, Bipolar 1 disorder, mixed F31.[address] [address] Dec, Normal pelvic exam Z01.419 [place] [address] [address] Dec, Bipolar 1 disorder, mixed F31.60 [place] [address] [address] Nov, Bipolar 1 disorder, mixed F31.60 [place] [address] [address] Nov, Bipolar 1 disorder, mixed F31.60 ; Gener alized anxiety disorder F41.1 ; Tobacco use disorder F17.200 and Other usp (current) drug therapy Z79.899 [place] [address] [address] Nov, [place] [address] [address] Nov, Bipolar 1 disorder, mixed F31.60 [place] [address] [address] October, Bipolar 1 disorder, mixed F31.60 [place] [address] [address] October, Bipolar 1 disorder, mixed F31.60 [place] [address] [address] October, [place] [address] [address] October, Bipolar 1 disorder, mixed F31.60 ; Gener alized anxiety disorder F41.1 and Tobacco use disorder F17.200 [place] [address] [address] Sep, [place] [address] [address] Sep, Encounter for Medicare annual wellness e xam Z00.00 ; Major depressive disorder, recurrent episode, moderate F33.1 ; Allergic rhinitis J30.9 ; Bipolar 1 disorder, mixed F31.60 ; Fibromyalgia M79.7 ; Hyperlipidemia, unspecified hyperlipidemia type E78.5 ; Hormone replacement therapy Z79.890 ; Encounter for screening for lung cancer Z12.2 and Tobacco use disorder F17.200 [place] [address] [address] 23 Sep, 2018 Bipolar 1 disorder, mixed F31.60 [place] [address] [address] Sep, Other chronic pain G89.29 ; Hyperlipidem ia, unspecified hyperlipidemia type E78.5 ; Breast cancer screening Z12.31 and Post menopausal syndrome N95.1 [place] [address] [address] 16 Sep, 2018 Bipolar 1 disorder, mixed F31.60 [place] [address] [address] 15 Sep, 2018 Bipolar 1 disorder, mixed F31.60 ; Gener alized anxiety disorder F41.1 and Tobacco use disorder F17.200 [place] [address] [address] 11 Sep, 2018 Gastritis without bleeding, unspecified chronicity, unspecified gastritis type K29.70 [place] [address] [address] Sep, Exercise counseling Z71.82 [place] [address] [address] Aug, Exercise counseling Z71.82 [place] [address] [address] Aug, Bipolar 1 disorder, mixed F31.60 [place] [address] [address] Aug, Exercise counseling Z71.82 [place] [address] [address] Aug, Bipolar 1 disorder, mixed F31.60 [place] [address] [address] Aug, Gastritis without bleeding, unspecified chronicity, unspecified gastritis type K29.70 ; Tobacco abuse Z72.0 ; Generalized anxiety disorder F41.1 and Weight gain R63.5 [place] [address] [address] Aug, Bipolar 1 disorder, mixed F31.60 ; Gener alized anxiety disorder F41.1 and Tobacco use disorder F17.200 [place] [address] [address] Jul, Bipolar 1 disorder, mixed F31.60 [place] [address] [address] Jul, [place] [address] [address] Jul, Bipolar 1 disorder, mixed F31.60 [place] [address] [address] Jul, Allergic rhinitis J30.9 ; Major depressi ve disorder, recurrent episode, moderate F33.1 and Tobacco dependence F17.200 [place] [address] [address] Jun, [place] [address] [address] Jun, [place] [address] [address] Jun, Bipolar 1 disorder, mixed F31.60 [place] [address] [address] Jun, Bipolar 1 disorder, mixed F31.60 [place] [address] [address] Jun, Bipolar 1 disorder, mixed F31.60 [place] [address] [address] Jun, Generalized anxiety disorder F41.1 ; Tob acco abuse Z72.0 and Major depressive disorder, recurrent episode, moderate F33.1 [place] [address] [address] May, Bipolar 1 disorder, mixed F31.60 [place] [address] [address] May, Bipolar 1 disorder, mixed F31.60 and Gen eralized anxiety disorder F41.1 [place] [address] [address] May, Bipolar 1 disorder, mixed F31.60 [place] [address] [address] May, Allergic rhinitis J30.9 [place] [address] [address] May, Bipolar 1 disorder, mixed F31.60 [place] [address] [address] May, [place] [address] [address] Apr, Allergic rhinitis J30.9 ; Dysfunction of both eustachian tubes H69.83 ; History of bladder surgery Z98.890 and Cervicalgia M54.2 [place] [address] [address] Mar, Bipolar 1 disorder, mixed F31.60 [place] [address] [address] Mar, [place] [address] [address] Mar, Slow transit constipation K59.01 ; Encou nter for immunization Z23 and Generalized anxiety disorder F41.1 [place] [address] [address] Feb, Bipolar 1 disorder, mixed F31.60 [place] [address] [address] Feb, Allergic rhinitis J30.9 [facility] [address] [address] 24 Feb, 2018 Bipolar 1 disorder, mixed F31.60 [facility] [address] [address] 20 Feb, 2018 Bipolar 1 disorder, mixed F31.60 and Gen eralized anxiety disorder F41.1 [facility] [address] [address] 13 Feb, 2018 Bipolar 1 disorder, mixed F31.60 [facility] [address] [address] 11 Feb, 2018 Allergic rhinitis J30.9 [facility] [address] [address] 05 Feb, 2018 [facility] [address] [address] Jan, Bipolar 1 disorder, mixed F31.60 [facility] [address] [address] Jan, Low back pain M54.5 ; Hyperlipidemia, un specified hyperlipidemia type E78.5 and Bipolar 1 disorder, mixed F31.60 [facility] [address] [address] Jan, Bipolar 1 disorder, mixed F31.60 [facility] [address] [address] Jan, Bipolar 1 disorder, mixed F31.60 [facility] [address] [address] Jan, Bipolar 1 disorder, mixed F31.60 [facility] [address] [address] Jan, Bipolar 1 disorder, mixed F31.60 [facility] [address] [address] Dec, Bipolar 1 disorder, mixed F31.60 ; Gener alized anxiety disorder F41.1 and 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.899 [facility] [address] [address] Dec, Other usp (current) drug therapy Z 79.899 [facility] [address] [address] Dec, Bipolar 1 disorder, mixed F31.60 [facility] [address] [address] Dec, Bipolar 1 disorder, mixed F31.60 [facility] [address] [address] Nov, Bipolar 1 disorder, mixed F31.60 [facility] [address] [address] Nov, Bipolar 1 disorder, mixed F31.60 [place] [address] [address] Nov, Bipolar 1 disorder, mixed F31.60 [facility] [address] [address] Nov, Allergic rhinitis J30.9 [facility] [address] [address] Nov, Allergic rhinitis J30.9 [facility] [address] [address] Nov, [facility] [address] [address] Nov, Bipolar 1 disorder, mixed F31.60 [facility] [address] [address] Nov, Fibromyalgia M79.7 and Allergic rhinitis J30.9 [facility] [address] [address] October, Bipolar 1 disorder, mixed F31.[address] [facility] WALK IN [facility] [address] [facility] [id number] [place] [address] October, Acute nasopharyngitis J00 [facility] [address] [facility] [id number] [place] [address] October, Bitten or stung by nonvenomo us insect and other nonvenomous arthropods, initial encounter W57.XXXA and Insect bite (nonvenomous) of abdominal wall, initial encounter S30.861A [facility] [address] [address] October, Insect bite (nonvenomous) of abdominal w all, initial encounter S30.861A ; Bitten or stung by nonvenomous insect and other nonvenomous arthropods, initial encounter W57.XXXA ; Allergic rhinitis J30.9 and Low back pain M54.5 [facility] [address] [address] October, Bipolar 1 disorder, mixed F31.60 [facility] [address] [address] October, [facility] [address] [address] October, [facility] [address] [address] October, Bipolar 1 disorder, mixed F31.60 [facility] [address] [address] Sep, Bipolar 1 disorder, mixed F31.60 [facility] [address] [address] Sep, Other chronic pain G89.29 [facility] [address] [address] Sep, [facility] [address] [address] Sep, Bipolar 1 disorder, mixed F31.60 [facility] [address] [address] Sep, Allergic rhinitis J30.9 and Sciatica of left side M54.32 [place] [address] [address] Sep, Bipolar 1 disorder, mixed F31.60 [facility] [address] [address] Sep, Bipolar 1 disorder, mixed F31.60 and Gen eralized anxiety disorder F41.1 [facility] [address] [address] Aug, [place] [address] [address] Aug, Bipolar 1 disorder, mixed F31.60 [place] [address] [address] Aug, Bipolar 1 disorder, mixed F31.60 [place] [address] [address] Aug, [place] [address] [address] Aug, Generalized anxiety disorder F41.1 [place] [address] [address] Aug, Bipolar 1 disorder, mixed F31.60 [place] [address] [address] Aug, Plantar wart of right foot B07.0 [place] [address] [address] Aug, Bipolar 1 disorder, mixed F31.60 [place] [address] [address] Jul, Bipolar 1 disorder, mixed F31.60 [facility] [address] [address] Jul, [facility] [address] [address] 14 Jul, 2017 Bipolar 1 disorder, mixed F31.60 [facility] [address] [place] [id number] [place] [address] 09 Jul, 2017 Generalized anxiety disorder F41.1 [facility] [address] [place] [id number] [place] [address] 07 Jul, 2017 Bipolar 1 disorder, mixed F31.60 [facility] [address] [address] 07 Jul, 2017 Acute left-sided low back pain with left -sided sciatica M54.42 [place] [address] [address] 05 Jul, 2017 Coccydynia M53.3 [facility] [address] [address] Jun, Bipolar 1 disorder, mixed F31.60 [facility] [address] [facility] [id number] [place] [address] Jun, Acute nasopharyngitis J00 [facility] [address] [address] Jun, Bipolar 1 disorder, mixed F31.60 [facility] [address] [address] Jun, Fibromyalgia M79.7 [facility] [address] [address] Jun, Bipolar 1 disorder, mixed F31.60 [facility] [address] [address] Jun, Fibromyalgia M79.7 and Bipolar 1 disorde r, mixed F31.60 [facility] [address] [address] May, Bipolar 1 disorder, mixed F31.60 ; Gener alized anxiety disorder F41.1 and Other usp (current) drug therapy Z79.899 [place] [address] [address] May, Bipolar 1 disorder, mixed F31.[address] [facility] [address] [address] 14 May, 2017 Cough R05 and Body aches R52 [facility] [place] [address] [address] 10 May, 2017 Bladder spasm N32.89 and Acu te cystitis without hematuria N30.00 [place] [address] [address] 07 May, 2017 Bipolar 1 disorder, mixed F31.60 [place] [address] [address] 30 Apr, 2017 [place] [address] [address] Apr, Major depressive disorder, recurrent epi sode, moderate F33.1 and Encounter for immunization Z23 [place] [address] [address] Apr, Bipolar 1 disorder, mixed F31.60 [place] [address] [address] Apr, Bipolar 1 disorder, mixed F31.60 [place] [address] [address] 16 Apr, 2017 Bipolar 1 disorder, mixed F31.60 [place] [address] [address] 13 Apr, 2017 Yeast vaginitis B37.3 [place] [address] [address] 09 Apr, 2017 Bipolar 1 disorder, mixed F31.60 [facility] [place] [address] [place] [id number] [place] [address] 07 Apr, [address] Cellulitis L03[address] for immunization Z23 [place] [address] [address] Apr, Bipolar 1 disorder, mixed F31.60 [place] [address] [address] Mar, Bipolar 1 disorder, mixed F31.60 [place] [address] [address] Mar, Bipolar 1 disorder, mixed F31.60 [place] [address] [address] Mar, Imbalance R26.89 and Encounter for immun ization Z23 [place] [address] [address] Mar, Generalized anxiety disorder F41.1 [place] [address] [address] Mar, Bipolar 1 disorder, mixed F31.60 [place] [address] [address] Mar, Generalized anxiety disorder F41.1 [place] [address] [address] Mar, Bipolar 1 disorder, mixed F31.60 [place] [address] [address] Mar, Bipolar 1 disorder, mixed F31.60 [place] [address] [address] Feb, Bipolar 1 disorder, mixed F31.60 [place] [address] [address] Feb, Bipolar 1 disorder, mixed F31.60 and Gen eralized anxiety disorder F41.1 [place] [address] [address] Feb, Gastritis without bleeding, unspecified chronicity, unspecified gastritis type K29.70 ; Hammer toe of right foot M20.41 and Other viral warts B07.8 [place] [address] [address] Feb, Bipolar 1 disorder, mixed F31.60 [facility] [address] [address] Feb, Bipolar 1 disorder, mixed F31.60 [facility] [address] [address] Feb, Bipolar 1 disorder, mixed F31.60 [place] [address] [address] Jan, Encounter for screening mammogram for br east cancer Z12.31 ; Other viral warts B07.8 and Allergic rhinitis J30.9 [place] [address] [address] Jan, Bipolar 1 disorder, mixed F31.60 [place] [address] [address] Jan, Bipolar 1 disorder, mixed F31.60 [facility] [address] [address] Jan, [place] [address] [address] Jan, Bipolar 1 disorder, mixed F31.60 [place] [address] [address] Jan, Bipolar 1 disorder, mixed F31.60 [place] [address] [address] Jan, Allergic rhinitis J30.9 ; Hematuria R31. 9 and Colon cancer screening Z12.11 [place] [address] [address] Dec, Bipolar 1 disorder, mixed F31.60 [facility] [address] [address] Dec, Bipolar 1 disorder, mixed F31.60 ; Gener alized anxiety disorder F41.1 and Other usp (current) drug therapy Z79.899 [place] [address] [address] Dec, Bipolar 1 disorder, mixed F31.60 [facility] [address] [address] Dec, Bipolar 1 disorder, mixed F31.60 [facility] [address] [address] Dec, Bipolar 1 disorder, mixed F31.60 [facility] [address] [address] Dec, Low back pain M54.5 and Recurrent urinar y tract infection N39.0 [place] [address] [address] Nov, Bipolar 1 disorder, mixed F31.60 [place] [address] [address] Nov, Bipolar 1 disorder, mixed F31.60 [place] [address] [address] Nov, Bipolar 1 disorder, mixed F31.60 [place] [address] [address] Nov, Bipolar 1 disorder, mixed F31.60 [place] [address] [address] Nov, [place] [address] [address] Nov, Anesthesia of skin R20.0 ; Frequent UTI N39.0 ; Tobacco abuse Z72.0 and Colon cancer screening Z12.11 [place] [address] [address] Nov, Bipolar 1 disorder, mixed F31.60 [place] [address] [address] October, Bipolar 1 disorder, mixed F31.60 [place] [address] [place] [id number] [place] [address] October, Bipolar 1 disorder, mixed F31.60 [place] [address] [place] [id number] [place] [address] October, Bipolar 1 disorder, mixed F31.60 [place] [address] [place] [id number] [place] [address] October, Bipolar 1 disorder, mixed F31.60 [place] [address] [address] October, Bipolar 1 disorder, mixed F31.60 [place] [address] [address] October, Cervicalgia M54.2 and Bipolar 1 disorder , mixed F31.60 [place] [address] [place] [id number] [place] [address] October, Hypertension I10 ; Hyperlipidemia, unspe cified hyperlipidemia type E78.5 and Family history of thyroid disease Z83.49 [place] [address] [id number] [place] [address] October, [facility] [address] [address] October, Hypertension I10 ; Hyperlipidemia, unspe cified hyperlipidemia type E78.5 and Family history of thyroid problem Z83.49 [place] [address] [place] [id number] [place] [address] October, Bipolar 1 disorder, mixed F31.60 [facility] [address] [address] Sep, Bipolar 1 disorder, mixed F31.60 [facility] [address] [address] Sep, Bipolar 1 disorder, mixed F31.60 [facility] [address] [place] [address] [id number] [place] [address] Sep, Bipolar 1 disorder, mixed F31.60 [facility] [address] [address] Sep, History of colon polyps Z86.010 and Thomas tochezia K92.1 [facility] [address] [address] Sep, Major depressive disorder, recurrent epi sode, moderate F33.1 [facility] [address] [address] Sep, Bipolar 1 disorder, mixed F31.60 [facility] [address] [address] Aug, Hot flashes due to menopause N95.1 [facility] [address] [address] Aug, Bipolar 1 disorder, mixed F31.60 [facility] [address] [address] Aug, [place] [address] [address] Aug, Bipolar 1 disorder, mixed F31.60 [facility] [address] [address] Aug, Bipolar 1 disorder, mixed F31.60 [facility] [address] [address] Aug, Hot flashes due to menopause N95.1 ; Cer vicalgia M54.2 and Ataxia R27.0 [facility] [address] [address] Jul, Bipolar 1 disorder, mixed F31.60 [facility] [address] [address] Jul, Bipolar 1 disorder, mixed F31.60 [facility] [address] [address] Jul, Bipolar 1 disorder, mixed F31.60 [facility] [address] [place] [address] [id number] 13 Jul, 2016 Bipolar 1 disorder, mixed F31.60 [facility] [address] [address] 10 Jul, 2016 Bipolar 1 disorder, mixed F31.60 [facility] [address] [address] 08 Jul, 2016 Cervicalgia M54.2 ; Tremor R25.1 ; Heari ng abnormally acute, unspecified laterality H93.239 ; Alopecia L65.9 ; Encounter for immunization Z23 and Family history of thyroid disease Z83.49 [facility] [address] [address] 06 Jul, 2016 Bipolar 1 disorder, mixed F31.60 [facility] [address] [address] Jun, [place] [address] [address] Jun, Hearing disorder, unspecified laterality H93.299 [facility] [address] [address] Jun, Bipolar 1 disorder, mixed F31.60 [facility] [address] [address] Jun, Bipolar 1 disorder, mixed F31.60 [place] [address] [address] Jun, Allergic rhinitis J30.9 [facility] [address] [address] Jun, Bipolar 1 disorder, mixed F31.60 [facility] [address] [address] Jun, Bipolar 1 disorder, mixed F31.60 [facility] [address] [address] Jun, Allergic rhinitis J30.9 [place] [address] [address] Jun, Allergic rhinitis J30.9 [facility] [address] [address] Jun, Bipolar 1 disorder, mixed F31.60 [facility] [address] [address] May, Bipolar 1 disorder, mixed F31.60 [facility] [address] [address] May, Bipolar 1 disorder, mixed F31.60 [facility] [address] [address] May, [facility] [address] [address] May, Bipolar 1 disorder, mixed F31.60 [facility] [address] [address] May, Bipolar 1 disorder, mixed F31.60 [facility] [address] [address] May, [facility] [address] [address] May, [facility] [address] [address] May, [facility] [address] [address] May, Abdominal pain, unspecified location R10 .9 [facility] [address] [address] May, [facility] [address] [address] Apr, Hematuria R31.9 ; Ataxia R27.0 and Heari ng loss, unspecified laterality H91.90 [facility] [address] [address] Apr, Bipolar 1 disorder, mixed F31.[address] [facility] [address] [facility] [id number] [address] [place] [address] Apr, Acute effusion of both middl e ears H65.193 [place] [address] [address] 10 Apr, 2016 Hematuria R31.9 and Pyelonephritis N12 [facility] [address] [address] Apr, [place] [address] [place] [address] Mar, Bipolar 1 disorder, mixed F31.60 [place] [address] [place] [address] Mar, [facility] [address] [address] Mar, Bipolar 1 disorder, mixed F31.60 [facility] [address] [address] Mar, Bipolar 1 disorder, mixed F31.60 [place] [address] [address] Mar, Encounter for immunization Z23 and Gastr itis without bleeding, unspecified chronicity, unspecified gastritis type K29.70 [facility] [address] [address] Mar, Bipolar 1 disorder, mixed F31.60 and Gri ef F43.20 [place] [address] [address] Mar, Gastritis without bleeding, unspecified chronicity, unspecified gastritis type K29.70 [facility] [address] [address] Mar, Bipolar 1 disorder, mixed F31.60 [place] [address] [place] 8799[address] Mar, Gastritis without bleeding, unspecified chronicity, unspecified gastritis type K29.70 [place] [address] [place] [id number] Mar, [place] [address] [place] [address]9952[address] Feb, Bipolar 1 disorder, mixed F31.60 [place] [address] [address] Feb, Bipolar 1 disorder, mixed F31.60 and Gri ef F43.20 [place] [address] [address] Feb, Gastritis without bleeding, unspecified chronicity, unspecified gastritis type K29.70 [place] [address] [place] 879952[address] 14 Feb, 2016 Bipolar 1 disorder, mixed F31.[address] [facility] [address] [facility] [id number] [address] [place] [address] Feb, Gastroesophageal reflux dise ase, esophagitis presence not specified K21.9 [facility] [address] [address] Jan, Bipolar 1 disorder, mixed F31.60 [place] [address] [address] Jan, Bipolar 1 disorder, mixed F31.60 and Uns teady gait R26.81 [facility] [address] [address] Jan, Bipolar 1 disorder, mixed F31.60 [place] [address] [address] Jan, Bipolar 1 disorder, mixed F31.60 and Oth er usp (current) drug therapy Z79.899 [place] [address] [place] [id number] Jan, Bipolar 1 disorder, mixed F31.60 [place] [address] [address] Jan, Bipolar 1 disorder, mixed F31.60 [place] [address] [address] Jan, Bipolar 1 disorder, mixed F31.60 ; Grief F43.20 and Other usp (current) drug therapy Z79.899 [place] [address] [address] Jan, Bipolar 1 disorder, mixed F31.60 [place] [address] [address] Dec, [place] [address] [address] Dec, Bipolar 1 disorder, mixed F31.60 ; Vitam in D deficiency, unspecified E55.9 ; H/O allergic rhinitis Z87.09 ; Other chronic pain G89.29 and Dorsalgia, unspecified M54.9 [place] [address] [address] Dec, [place] [address] [address] Dec, Bipolar 1 disorder, mixed F31.60 [place] [address] [address] Dec, Major depressive disorder, recurrent epi sode, moderate F33.1 [place] [address] [address] Dec, Major depressive disorder, recurrent epi sode, moderate F33.1 [place] [address] [address] Nov, [place] [address] [address] Nov, Bipolar 1 disorder, mixed F31.60 [place] [address] [address] Nov, Major depressive disorder, recurrent epi sode, moderate F33.1 [place] [address] [address] Nov, Cervicalgia M54.2 ; Arthralgia of hip, u nspecified laterality M25.559 ; Allergic rhinitis J30.9 and Hormone replacement therapy Z79.[address] [facility] [address] [facility] [id number] [address] [place] [address] Nov, Other seasonal allergic rhin itis J30.2 [facility] [address] [address] October, Major depressive disorder, recurrent epi sode, moderate F33.1 [place] [address] [address] October, Major depressive disorder, recurrent epi sode, moderate F33.1 and Arthralgia of hip, unspecified laterality M25.559 [place] [address] [address] October, Grief F43.20 ; Hypertension I10 ; Hyperl ipidemia, unspecified hyperlipidemia type E78.5 ; Other chronic pain G89.29 and Allergic rhinitis, unspecified allergic rhinitis type J30.9 [place] [address] [address] October, Major depressive disorder, recurrent epi sode, moderate F33.1 [place] [address] [address] Sep, Major depressive disorder, recurrent epi sode, moderate F33.1 [place] [address] [address] Sep, [place] [address] [address] Sep, Major depressive disorder, recurrent epi sode, moderate F33.1 [place] [address] [address] Sep, Grief F43.20 [place] [address] [address] Aug, Major depressive disorder, recurrent epi sode, moderate F33.1 [facility] [address] [address] Aug, Bipolar 1 disorder, mixed F31.60 [facility] [address] [address] Aug, Allergic rhinitis J30.9 ; Cervicalgia M5 4.2 and Low back pain M54.5 [facility] [address] [address] Aug, Major depressive disorder, recurrent epi sode, moderate F33.1 [facility] [address] [facility] [id number] [address] [place] [address] Aug, Sinusitis J32.9 and Tobacco dependence F17.200 [place] [address] [address] Aug, [place] [address] [address] Aug, Depressive disorder, not elsewhere class ified F32.9 ; Hormone replacement therapy Z79.[address] scan, head R93.0 [place] [address] [address] Aug, Major depressive disorder, recurrent epi sode, moderate F33.1 [place] [address] [address] Jul, Major depressive disorder, recurrent epi sode, moderate F33.1 [place] [address] [address] Jul, Abdominal pain R10.9 and Hypertension I1 0 [place] [address] [address] Jul, [place] [address] [place] 8799[address] 05 Jul, 2015 Major depressive disorder, recurrent epi sode, moderate F33.1 [place] [address] [address] Jul, [facility] [address] [address] Jul, [facility] [address] [address] Jun, [facility] [address] [address] Jun, Depressive disorder, not elsewhere class ified F32.9 [facility] [address] [address] Jun, [facility] [address] [address] Jun, [facility] [address] [address] Jun, Arthralgia of hip, unspecified lateralit y M25.559 ; Bruising, spontaneous R23.3 and Night sweats R61 [facility] [address] [address] Jun, [facility] [address] [address] Jun, [facility] [address] [address] May, [place] [address] [address] May, Myalgia M79.1 and Screening, lipid Z13.2 20 [facility] [address] [address] 10 Apr, 2015 Status post cervical spinal fusion Z98.1 ; Fibromyalgia M79.7 and Unsteady gait R26.81 [facility] [address] [address] Nov, [facility] [address] [address] Nov, [facility] [address] [id number] [place] [address] October, [facility] [id number] [place] [address] October, [facility] [id number] [place] [address] October, [facility] [id number] [place] [address] October, [facility] [id number] [place] [address] October, [facility] [id number] [place] [address] October, Dysuria 788.1 ; Nausea 787.02 and Urinar y tract infection 599.0 [facility] [id number] [place] [address] Sep, [facility] [id number] [place] [address] Sep, [facility] [id number] [place] [address] Aug, [facility] [id number] [place] [address] Aug, [facility] [id number] [place] [address] Aug, [facility] [id number] [place] [address] Aug, [facility] [id number] [place] [address] Aug, [facility] [id number] [place] [address] Aug, [facility] [id number] [place] [address] Aug, [facility] [id number] [place] [address] Aug, [facility] [address] [id number] [place] [address] Aug, 2014 [facility] [address] [id number] [place] [address] 18 Aug, 2014 [facility] [address] [id number] [place] [address] 18 Aug, 2014 [facility] [address] [id number] [place] [address] Aug, [facility] [address] [id number] [place] [address] Aug, [facility] [address] [id number] [place] [address] Aug, [facility] [address] [id number] [place] [address] Aug, 2014 [facility] [address] [id number] [place] [address] Aug, [facility] [address] [id number] [place] [address] Aug, 2014 [facility] [address] [id number] [place] [address] Aug, [facility] [address] [id number] [place] [address] 05 Aug, 2014 [facility] [address] [id number] [place] [address] Aug, [facility] [address] [id number] [place] [address] Aug, [facility] [address] [id number] [place] [address] Aug, [facility] [address] [id number] [place] [address] Jul, [facility] [address] [id number] [place] [address] Jul, [facility] [address] [id number] [place] [address] Jul, 2014 [facility] [address] [id number] [place] [address] Jul, [facility] [address] [id number] [place] [address] Jul, 2014 [facility] [address] [id number] [place] [address] Jul, [facility] [address] [id number] [place] [address] Jul, 2014 [facility] [address] [id number] [place] [address] Jul, [facility] [address] [id number] [place] [address] Jul, 2014 [facility] [address] [id number] [place] [address] Jul, [facility] [id number] [place] [address] Jul, 2014 [facility] [address] [id number] [place] [address] Jul, [facility] [address] [id number] [place] [address] Jul, [facility] [address] [id number] [place] [address] Jul, [facility] [address] [id number] [place] [address] Jun, [facility] [address] [id number] [place] [address] Jun, [facility] [id number] [place] [address] Jun, [facility] [address] [id number] [place] [address] Jun, [facility] [id number] [place] [address] Jun, [facility] [address] [id number] [place] [address] Jun, [facility] [address] [id number] [place] [address] May, [facility] [address] [id number] [place] [address] May, [facility] [address] [id number] [place] [address] May, [facility] [address] [id number] [place] [address] May, [facility] [address] [id number] [place] [address] May, [facility] [address] [id number] [place] [address] May, [facility] [id number] [place] [address] Apr, [facility] [address] [id number] [place] [address] Apr, [facility] [address] [id number] [place] [address] Apr, [facility] [address] [id number] [place] [address] Apr, [facility] [address] [id number] [place] [address] Apr, [facility] [address] [id number] [place] [address] Apr, [facility] [address] [id number] [place] [address] Mar, [facility] [address] [id number] [place] [address] Mar, [facility] [address] [id number] [place] [address] Mar, [facility] [address] [id number] [place] [address] Mar, 2013 [facility] [address] [id number] [place] [address] Mar, 2013 [facility] [address] [id number] [place] [address] Mar, 2013 [facility] [address] [id number] [place] [address] Mar, 2013 [facility] [address] [id number] [place] [address] Mar, 2013 [facility] [address] [id number] [place] [address] Mar, [facility] [address] [id number] [place] [address] Mar, [facility] [address] [id number] [place] [address] Mar, [facility] [address] [id number] [place] [address] Mar, 2013 [facility] [address] [id number] [place] [address] 30 Feb, 2013 [facility] [address] [id number] [place] [address] 29 Feb, 2013 [facility] [address] [id number] [place] [address] 29 Feb, 2013 [facility] [address] [id number] [place] [address] 23 Feb, 2013 [facility] [address] [id number] [place] [address] 23 Feb, 2013 [facility] [address] [id number] [place] [address] 08 Feb, 2013 [facility] [address] [id number] [place] [address] 08 Feb, 2013 [facility] [address] [id number] [place] [address] Jan, 2013 [facility] [address] [id number] [facility] [place] [address] Jan, [facility] [address] [id number] [place] [address] Jan, [facility] [address] [facility] [id number] [facility] [place] [address] Dec, [facility] [address] [id number] [facility] [place] [address] Dec, [facility] [address] [facility] [id number] [facility] [place] [address] Dec, [facility] [address] [id number] [facility] [place] [address] Dec, [facility] [address] [id number] [place] [address] Sep, [facility] [address] [id number] [place] [address] Sep, [facility] [address] [id number] [place] [address] Sep, [facility] [address] [id number] [place] [address] Sep, [facility] [address] [id number] [place] [address] Sep, [facility] [address] [id number] [place] [address] Sep, [facility] [address] [id number] [place] [address] Sep, [facility] [address] [facility] [id number] [place] [address] Sep, [facility] [address] [id number] [place] [address] Aug, [facility] [address] [id number] [place] [address] Aug, [facility] [address] [id number] [place] [address] May, [facility] [address] [id number] [place] [address] May, [facility] [address] [id number] [place] [address] Apr, [facility] [address] [id number] [place] [address] Apr, [facility] [address] [id number] [place] [address] Apr, [facility] [address] [id number] [place] [address] Apr, [facility] [address] [id number] [place] [address] Apr, [facility] [address] [id number] [place] [address] Apr, [facility] [address] [id number] [place] [address] May, [facility] [address] [id number] [place] [address] 18 May, 2012 [facility] [address] [id number] [place] [address] 15 May, 2012 [facility] [address] [id number] [place] [address] 15 May, 2012 [facility] [address] [id number] [place] [address] 13 May, 2012 [facility] [address] [id number] [place] [address] 13 May, 2012 [facility] [address] [id number] [place] [address] 13 Apr, 2012 [facility] [address] [id number] [place] [address] 13 Apr, 2012 [facility] [address] [id number] [place] [address] 08 Apr, 2012 [facility] [address] [id number] [place] [address] 08 Apr, 2012 [facility] [address] [id number] [place] [address] Apr, [facility] [address] [id number] [place] [address] Apr, [facility] [address] [id number] [place] [address] Apr, [facility] [address] [id number] [place] [address] Apr, [facility] [address] [id number] [place] [address] Apr, [facility] [address] [id number] [place] [address] Apr, [facility] [address] [id number] [place] [address] Mar, [facility] [address] [id number] [place] [address] Mar, [facility] [address] [id number] [place] [address] Mar, [facility] [address] [id number] [place] [address] Mar, [facility] [address] [id number] [place] [address] Mar, [facility] [address] [id number] [place] [address] Mar, [facility] [address] [id number] [place] [address] Mar, [facility] [address] [id number] [place] [address] Mar, [facility] [address] [id number] [place] [address] Mar, [facility] [address] [id number] [place] [address] Feb, [facility] [address] [id number] [place] [address] 16 Feb, 2012 [facility] [address] [id number] [place] [address] Feb, [facility] [address] [facility] [id number] [place] [address] Jan, [facility] [address] [id number] [place] [address] Jan, [facility] [address] [id number] [place] [address] Jan, [facility] [address] [id number] [place] [address] Jan, [facility] [address] [id number] [place] [address] Jan, [facility] [address] [id number] [place] [address] Jan, [facility] [address] [id number] [place] [address] 16 Jan, 2012 [facility] [address] [id number] [place] [address] Jan, [facility] [address] [id number] [place] [address] Jan, [facility] [address] [id number] [place] [address] Jan, [facility] [address] [id number] [place] [address] Dec, [facility] [address] [facility] [id number] [place] [address] Dec, [facility] [address] [id number] [place] [address] Dec, [facility] [address] [id number] [place] [address] Dec, [facility] [address] [id number] [place] [address] Nov, [facility] [address] [id number] [place] [address] 08 Nov, 2011 [facility] [address] [id number] [place] [address] Nov, [facility] [address] [id number] [place] [address] October, [facility] [id number] [place] [address] October, [facility] [id number] [place] [address] October, [facility] [id number] [place] [address] October, [facility] [id number] [place] [address] October, [facility] [id number] [place] [address] October, [facility] [id number] [place] [address] Aug, [facility] [id number] [place] [address] Mar, [facility] [id number] [place] [address] Nov, [facility] [id number] [place] [address] May, [facility] [id number] [place] [address] May, [facility] [id number] [place] [address] Apr, [facility] [id number] [place] [address] Mar, [facility] [address] [id number] [place] [address] Mar, IMMUNIZATIONS No Known Immunizations SOCIAL HISTORY [...]
--- OUTSIDE RECORDS SUMMARY | 2020-02-02 19:42 | XMS REPORT ---
Author Author Sydnie STEPHENSON Organization [facility] Address [address] [place] [address] Care Team Providers Care Ski Technician Name Role Phone DAVEY STEPHENSON Unavailable PROBLEMS Type Condition ICD9-CM Code VHM98-YS Code Onset Dates Condition S tatus SNOMED Code Problem Bruising, spontaneous R23.3 Active 127267265 Problem Arthralgia of hip, unspecified laterality M25.559 Active 36048711 Problem Night sweats R61 Active 3505188 0 Problem Grief F43.20 Active 84434274 Problem Hypertension I10 Active 6164797 3 Problem Hyperlipidemia, unspecified hyperlipidemia type E7 8.5 Active 11340268 Problem Other chronic pain G89.29 Active 8 2738066 Problem Bladder spasm N32.89 Active 649445 006 Problem Age-related osteoporosis without current pathological fracture M81.0 Active 51895769 Problem Fibromyalgia M79.7 Active 8434442 7 Problem Hormone replacement therapy Z79.890 Ac tive 306838926 Problem Sensorineural hearing loss (SNHL) of both ears H90 .3 Active 469561172 Problem Abnormal CT scan, head R93.0 Active 397561621 Problem Allergic rhinitis J30.9 Active 61 917674 Problem Hearing loss, unspecified laterality H91.90 Active 64865247 Problem Generalized anxiety disorder F41.1 A ctive 94080780 Problem History of colon polyps Z86.010 Active 123548347 Problem Hammer toe of right foot M20.41 Activ e 994808555 Problem Hematuria, unspecified type R31.9 Ac tive 62968613 Problem Major depressive disorder, recurrent episode, moderate F33.1 Active 948827016 Problem Imbalance R26.89 Active 584771545 Problem Acute left-sided low back pain with left-sided sciatica M54.42 Active 979585398 Problem Sciatica of left side M54.32 Active 24324642 Problem Plantar wart of right foot B07.0 Act mitchell [id number] Problem Hearing loss, unspecified hearing loss type, uns pecified laterality H91.90 Active 99034070 Problem Bipolar 1 disorder, mixed F31.60 Acti ve 54704249 Problem Osteoporotic compression fracture of spine with delayed healing M80.88XG Active 88915828 Problem Gastritis without bleeding, unspecified chronicity, unspecified gastritis type K29.70 Active 803017147 Problem Ataxia R27.0 Active 05870321 Problem Slow transit constipation K59.01 Acti ve 01917209 Problem Tobacco use disorder F17.200 Active 880318295 Problem Post menopausal syndrome N95.1 Activ e 605301658 Problem Sciatica of right side M54.31 Active 36827520 ALLERGIES No Information ENCOUNTERS Encounter Location Date Diagnosis [facility] [address] [place] [address] 22 Sep, 2019 [place] [address] [address] 08 Sep, 2019 Bipolar 1 disorder, mixed F3 1.60 [facility] [address] [address] 23 Aug, 2019 [facility] [address] [address] 23 Aug, 2019 Yeast vaginitis B37.3 [facility] [address] [address] 14 Aug, 2019 Vaginal discharge N89.8 [facility] [address] [address] 10 Aug, 2019 Bipolar 1 disorder, mixed F3 1.60 [facility] [address] [place] [id number] [place] [address] 04 Aug, 2019 Age-related osteoporosis wit h current pathological fracture with routine healing, subsequent encounter M80.00XD [facility] [address] [address] 24 Jul, 2019 Age-related osteoporosis wit h current pathological fracture with routine healing, subsequent encounter M80.00XD [facility] [address] [place] [id number] [place] [address] 24 Jul, 2019 Osteoporotic compression fra cture of spine with delayed healing M80.88XG and Tobacco use disorder F17.200 [facility] [address] [place] [id number] [place] [address] 11 Jul, 2019 Bipolar 1 disorder, mixed F3 1.60 [facility] [address] [place] [id number] [place] [address] 07 Jul, 2019 [facility] [address] [place] [id number] [place] [address] 03 Jul, 2019 Tobacco use disorder F17.200 [place] [address] [place] [id number] [place] [address] 15 Jun, 2019 Bipolar 1 disorder, mixed F3 1.60 [place] [address] [place] [id number] [place] [address] 07 Jun, 2019 Bipolar 1 disorder, mixed F3 1.60 ; Generalized anxiety disorder F41.1 and Tobacco use disorder F17.200 [place] [address] [place] [id number] [place] [address] 06 Jun, 2019 Tobacco use disorder F17.200 [place] [address] [place] [id number] [place] [address] May, [place] [address] [place] [address] May, Compression fracture of L1 v ertebra with routine healing, subsequent encounter S32.010D [place] [address] [place] [id number] [place] [address] May, [place] [address] [place] [id number] [place] [address] May, [place] [address] [place] [id number] [place] [address] May, [facility] [address] [place] [id number] [place] [address] May, [facility] [address] [address] May, [place] [address] [place] [id number] May, [place] [address] [address] May, [place] [address] [address] May, Bipolar 1 disorder, mixed F3 1.60 [place] [address] [address] May, Closed fracture of right upp er extremity with routine healing, subsequent encounter S42.301D and Hearing loss, unspecified hearing loss type, unspecified laterality H91.90 [place] [address] [address] May, [place] [address] [address] Apr, Allergic rhinitis J30.9 ; Ab dominal pain, unspecified location R10.9 and Seborrheic keratosis L82.[address] [address] Mar, Bipolar 1 disorder, mixed F3 1.60 [place] [address] [address] Mar, Bipolar 1 disorder, mixed F3 1.60 ; Generalized anxiety disorder F41.1 and Tobacco use disorder F17.200 [place] [id number] Feb, Excessive gas R14.3 ; Other chronic pain G89.29 ; Encounter for immunization Z23 ; Hyperlipidemia, unspecified hyperlipidemia type E78.5 ; Bipolar 1 disorder, mixed F31.60 and Other missing persons investigator (current) 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 therapy Z79.899 [place] [address] [facility] [id number] [address] [place] [address] Feb, Bipolar 1 disorder, mixed F3 1.60 [facility] [address] [facility] [id number] [address] [place] [address] Jan, Sciatica of right side M54.3 1 ; Low back pain M54.5 and Major depressive disorder, recurrent episode, moderate F33.1 [place] [address] [address] [facility] [id number] [address] [place] [address] Jan, Bipolar 1 disorder, mixed F3 1.60 [place] [address] [facility] [id number] [address] [place] [address] Dec, Normal pelvic exam Z01.419 [place] [address] [facility] [id number] [address] [place] [address] Dec, Bipolar 1 disorder, mixed F3 1.60 [place] [address] [facility] [id number] [address] [place] [address] Nov, Bipolar 1 disorder, mixed F3 1.60 [place] [address] [facility] [id number] [address] [place] [address] Nov, Bipolar 1 disorder, mixed F3 1.60 ; Generalized anxiety disorder F41.1 ; Tobacco use disorder F17.200 and Other missing persons investigator (current) 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 therapy Z79.899 [place] [address] [facility] [id number] [address] [place] [address] Nov, [facility] [address] [facility] [id number] [address] [place] [address] Nov, Bipolar 1 disorder, mixed F3 1.60 [place] [address] [facility] [id number] [address] [place] [address] October, Bipolar 1 disorder, mixed F3 1.60 [place] [address] [facility] [id number] [address] [place] [address] October, Bipolar 1 disorder, mixed F3 1.60 [place] [address] [place] [id number] [place] [address] October, [place] [address] [place] [id number] [place] [address] October, Bipolar 1 disorder, mixed F3 1.60 ; Generalized anxiety disorder F41.1 and Tobacco use disorder F17.200 [place] [address] [place] [address] Sep, [place] [address] [address] Sep, Encounter for Medicare annua wellness exam Z00.00 ; Major depressive disorder, recurrent episode, moderate F33.1 ; Allergic rhinitis J30.9 ; Bipolar 1 disorder, mixed F31.60 ; Fibromyalgia M79.7 ; Hyperlipidemia, unspecified hyperlipidemia type E78.5 ; Hormone replacement therapy Z79.890 ; Encounter for screening for lung cancer Z12.2 and Tobacco use disorder F17.200 [place] [address] [place] [id number] [place] [address] Sep, Bipolar 1 disorder, mixed F3 1.60 [place] [address] [address] Sep, Other chronic pain G89.29 ; Hyperlipidemia, unspecified hyperlipidemia type E78.5 ; Breast cancer screening Z12.31 and Post menopausal syndrome N95.1 [place] [address] [place] [id number] [place] [address] Sep, Bipolar 1 disorder, mixed F3 1.60 [place] [address] [place] [id number] [place] [address] Sep, Bipolar 1 disorder, mixed F3 1.60 ; Generalized anxiety disorder F41.1 and Tobacco use disorder F17.200 [place] [address] [place] [id number] [place] [address] Sep, Gastritis without bleeding, unspecified chronicity, unspecified gastritis type K29.70 [place] [address] [place] [id number] [place] [address] 08 Sep, 2018 Exercise counseling Z71.82 [place] [address] [facility] [id number] [address] [place] [address] Aug, Exercise counseling Z71.82 [place] [address] [facility] [id number] [address] [place] [address] Aug, Bipolar 1 disorder, mixed F3 1.60 [place] [address] [facility] [id number] [address] [place] [address] Aug, Exercise counseling Z71.82 [place] [address] [facility] [id number] [address] [place] [address] Aug, Bipolar 1 disorder, mixed F3 1.60 [place] [address] [facility] [id number] [address] [place] [address] Aug, Gastritis without bleeding, unspecified chronicity, unspecified gastritis type K29.70 ; Tobacco abuse Z72.0 ; Generalized anxiety disorder F41.1 and Weight gain R63.5 [place] [address] [facility] [id number] [address] [place] [address] 14 Aug, 2018 Bipolar 1 disorder, mixed F3 1.60 ; Generalized anxiety disorder F41.1 and Tobacco use disorder F17.200 [place] [address] [facility] [id number] [address] [place] [address] Jul, Bipolar 1 disorder, mixed F3 1.60 [place] [address] [facility] [id number] [address] [place] [address] Jul, [place] [address] [facility] [id number] [address] [place] [address] Jul, Bipolar 1 disorder, mixed F3 1.60 [place] [address] [facility] [id number] [address] [place] [address] 11 Jul, 2018 Allergic rhinitis J30.9 ; Ma darion depressive disorder, recurrent episode, moderate F33.1 and Tobacco dependence F17.200 [place] [address] [facility] [id number] [address] [place] [address] Jun, [facility] [address] [facility] [id number] [address] [place] [address] Jun, [facility] [address] [facility] [id number] [address] [place] [address] Jun, Bipolar 1 disorder, mixed F3 1.60 [facility] [address] [place] [id number] [place] [address] Jun, Bipolar 1 disorder, mixed F3 1.60 [facility] [address] [facility] [id number] [address] [place] [address] Jun, Bipolar 1 disorder, mixed F3 1.60 [facility] [address] [place] [id number] [place] [address] Jun, Generalized anxiety disorder F41.1 ; Tobacco abuse Z72.0 and Major depressive disorder, recurrent episode, moderate F33.1 [facility] [address] [place] [id number] [place] [address] May, Bipolar 1 disorder, mixed F3 1.60 [facility] [address] [place] [id number] [place] [address] May, Bipolar 1 disorder, mixed F3 1.60 and Generalized anxiety disorder F41.1 [facility] [address] [place] [id number] [place] [address] May, Bipolar 1 disorder, mixed F3 1.60 [facility] [address] [facility] [id number] [address] [place] [address] May, Allergic rhinitis J30.9 [facility] [address] [facility] [id number] [address] [place] [address] May, Bipolar 1 disorder, mixed F3 1.60 [facility] [address] [facility] [id number] [address] [place] [address] May, [facility] [address] [place] [id number] [place] [address] Apr, Allergic rhinitis J30.9 ; Dy sfunction of both eustachian tubes H69.83 ; History of bladder surgery Z98.890 and Cervicalgia M54.2 [facility] [address] [place] [id number] [place] [address] Mar, Bipolar 1 disorder, mixed F3 1.60 [facility] [address] [address] Mar, [facility] [address] [address] Mar, Slow transit constipation K5 9.01 ; Encounter for immunization Z23 and Generalized anxiety disorder F41.1 [place] [address] [address] 27 Feb, 2018 Bipolar 1 disorder, mixed F3 1.60 [place] [address] [address] Feb, Allergic rhinitis J30.9 [facility] [address] [address] 24 Feb, 2018 Bipolar 1 disorder, mixed F3 1.60 [place] [address] [address] 20 Feb, 2018 Bipolar 1 disorder, mixed F3 1.60 and Generalized anxiety disorder F41.1 [facility] [address] [address] 13 Feb, 2018 Bipolar 1 disorder, mixed F3 1.60 [facility] [address] [place] [id number] [place] [address] Feb, Allergic rhinitis J30.9 [facility] [address] [place] [id number] [place] [address] 05 Feb, 2018 [facility] [address] [place] [id number] [place] [address] Jan, Bipolar 1 disorder, mixed F3 1.60 [facility] [address] [place] [address] Jan, Low back pain M54.5 ; Hyperl ipidemia, unspecified hyperlipidemia type E78.5 and Bipolar 1 disorder, mixed F31.60 [facility] [address] [place] [id number] [place], [place] [id number] Jan, Bipolar 1 disorder, mixed F3 1.60 [facility] [address] [place] [id number] [place] [address] Jan, Bipolar 1 disorder, mixed F3 1.60 [facility] [address] [place] [id number] [place] [address] Jan, Bipolar 1 disorder, mixed F3 1.60 [facility] [address] [place] [id number] [place] [address] Jan, Bipolar 1 disorder, mixed F3 1.60 [facility] [address] [place] [id number] [place] [address] Dec, Bipolar 1 disorder, mixed F3 1.60 ; Generalized anxiety disorder F41.1 and 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60 [facility] [address] [place] [id number] [place] [address] Nov, Bipolar 1 disorder, mixed F3 1.60 [facility] [address] [place] [id number] [place] [address] 13 Nov, 2017 Bipolar 1 disorder, mixed F3 1.60 [facility] [address] [address] 11 Nov, 2017 Allergic rhinitis J30.9 [facility] [address] [place] [id number] [place] [address] Nov, Allergic rhinitis J30.9 [facility] [address] [address] Nov, [facility] [address] [place] [id number] [place] [address] Nov, Bipolar 1 disorder, mixed F3 1.60 [place] [address] [address] Nov, Fibromyalgia M79.7 and Aller gic rhinitis J30.9 [facility] [address] [place] [address] October, Bipolar 1 disorder, mixed F3 1.60 [facility] [address] [address] October, Acute nasopharyngitis J00 [facility] [address] [address] October, Bitten or stung by nonvenomo us insect and other nonvenomous arthropods, initial encounter W57.XXXA and Insect bite (nonvenomous) of abdominal wall, initial encounter S30.861A [facility] [address] [place] [address] October, Insect bite (nonvenomous) of abdominal wall, initial encounter S30.861A ; Bitten or stung by nonvenomous insect and other nonvenomous arthropods, initial encounter W57.XXXA ; Allergic rhinitis J30.9 and Low back pain M54.5 [facility] [address] [place] [id number] [place] [address] October, Bipolar 1 disorder, mixed F3 1.60 [facility] [address] [id number] [address] [place] [address] October, [facility] [address] [id number] [address] [place] [address] October, [facility] [address] [id number] [address] [place] [address] October, Bipolar 1 disorder, mixed F3 1.60 [facility] [address] [id number] [address] [place] [address] Sep, Bipolar 1 disorder, mixed F3 1.60 [facility] [address] [facility] [id number] [address] [place] [address] Sep, Other chronic pain G89.29 [facility] [address] [facility] [id number] [address] [place] [address] Sep, [facility] [address] [facility] [id number] [address] [place] [address] Sep, Bipolar 1 disorder, mixed F3 1.60 [facility] [address] [facility] [id number] [address] [place] [address] Sep, Allergic rhinitis J30.9 and Sciatica of left side M54.32 [facility] [address] [facility] [id number] [address] [place] [address] Sep, Bipolar 1 disorder, mixed F3 1.60 [facility] [address] [id number] [address] [place] [address] Sep, Bipolar 1 disorder, mixed F3 1.60 and Generalized anxiety disorder F41.1 [facility] [address] [facility] [id number] [address] [place] [address] Aug, [facility] [address] [facility] [id number] [address] [place] [address] Aug, Bipolar 1 disorder, mixed F3 1.60 [facility] [address] [facility] [id number] [address] [place] [address] Aug, Bipolar 1 disorder, mixed F3 1.60 [facility] [address] [facility] [id number] [address] [place] [address] Aug, [facility] [address] [facility] [id number] [address] [place] [address] Aug, Generalized anxiety disorder F41.1 [facility] [address] [facility] [id number] [address] [place] [address] Aug, Bipolar 1 disorder, mixed F3 1.60 [facility] [address] [facility] [id number] [address] [place] [address] Aug, Plantar wart of right foot B 07.0 [facility] [address] [facility] [id number] [address] [place] [address] Aug, Bipolar 1 disorder, mixed F3 1.60 [facility] [address] [facility] [id number] [address] [place] [address] Jul, Bipolar 1 disorder, mixed F3 1.60 [facility] [address] [facility] [id number] [address] [place] [address] Jul, [facility] [address] [facility] [id number] [address] [place] [address] Jul, Bipolar 1 disorder, mixed F3 1.60 [facility] [address] [facility] [id number] [address] [place] [address] Jul, Generalized anxiety disorder F41.1 [facility] [address] [facility] [id number] [address] [place] [address] Jul, Bipolar 1 disorder, mixed F3 1.60 [facility] [address] [facility] [id number] [address] [place] [address] Jul, Acute left-sided low back pa in with left-sided sciatica M54.42 [facility] [address] [facility] [id number] [address] [place] [address] Jul, Coccydynia M53.3 [place] [address] [place] [id number] [place] [address] Jun, Bipolar 1 disorder, mixed F3 1.60 [facility] [address] [place] [id number] [place] [address] Jun, Acute nasopharyngitis J00 [place] [address] [address] Jun, Bipolar 1 disorder, mixed F3 1.60 [place] [address] [place] [address] Jun, Fibromyalgia M79.7 [place] [address] [place] [id number] [place] [address] Jun, Bipolar 1 disorder, mixed F3 1.60 [place] [address] [address] Jun, Fibromyalgia M79.7 and Bipol ar 1 disorder, mixed F31.60 [place] [address] [place] [address] May, Bipolar 1 disorder, mixed F3 1.60 ; Generalized anxiety disorder F41.1 and Other missing persons investigator (current) 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 therapy Z79.899 [place] [address] [place] [id number] [place] [id number] May, Bipolar 1 disorder, mixed F3 1.60 [facility] [address] [place] [id number] [place] [id number] May, Cough R05 and Body aches R52 [facility] [place] [address] [address] [place] [id number] [place] [id number] 10 May, 2017 Bladder spasm N32.89 and Acu te cystitis without hematuria N30.00 [place] [address] [address] [place] [id number] [place] [id number] 07 May, 2017 Bipolar 1 disorder, mixed F3 1.60 [facility] [address] [id number] Apr, [facility] [address] [place] [id number] Apr, Major depressive disorder, r ecurrent episode, moderate F33.1 and Encounter for immunization Z23 [facility] [address] [phone] Apr, Bipolar 1 disorder, mixed F3 1.60 [facility] [address] [address] Apr, Bipolar 1 disorder, mixed F3 1.60 [place] [address] [place] [address] Apr, Bipolar 1 disorder, mixed F3 1.60 [place] [address] [id number] Apr, Yeast vaginitis B37.3 [facility] [address] [address] Apr, Bipolar 1 disorder, mixed F3 1.60 [facility] [facility] [address] [address] Apr, Cellulitis L03.[address] for immunization Z23 [facility] [address] [address] Apr, Bipolar 1 disorder, mixed F3 1.60 [facility] [address] [address] Mar, Bipolar 1 disorder, mixed F3 1.60 [facility] [address] [address] Mar, Bipolar 1 disorder, mixed F3 1.60 [facility] [address] [address] Mar, Imbalance R26.89 [address] Encount er for immunization Z23 [place] [address] [place] [address] Mar, Generalized anxiety disorder F41.1 [place] [address] [place] [id number] [place] [address] Mar, Bipolar 1 disorder, mixed F3 1.60 [place] [address] [place] [id number] [place] [address] Mar, Generalized anxiety disorder F41.1 [place] [address] [place] [id number] [place] [address] Mar, Bipolar 1 disorder, mixed F3 1.60 [place] [address] [address] Mar, Bipolar 1 disorder, mixed F3 1.60 [place] [address] [address] Feb, Bipolar 1 disorder, mixed F3 1.60 [place] [address] [place] [id number] [place] [address] Feb, Bipolar 1 disorder, mixed F3 1.60 and Generalized anxiety disorder F41.1 [place] [address] [place] [id number] [place] [address] Feb, Gastritis without bleeding, unspecified chronicity, unspecified gastritis type K29.70 ; Hammer toe of right foot M20.41 and Other viral warts B07.8 [place] [address] [place] [id number] [place] [address] 20 Feb, 2017 Bipolar 1 disorder, mixed F3 1.60 [place] [address] [place] [id number] [place] [address] 13 Feb, 2017 Bipolar 1 disorder, mixed F3 1.60 [place] [address] [place] [id number] [place] [address] 05 Feb, 2017 Bipolar 1 disorder, mixed F3 1.60 [place] [address] [place] [address] Jan, Encounter for screening mamm ogram for breast cancer Z12.31 ; Other viral warts B07.8 and Allergic rhinitis J30.9 [facility] [address] [facility] [id number] [address] [place] [address] Jan, Bipolar 1 disorder, mixed F3 1.60 [facility] [address] [facility] [id number] [address] [place] [address] Jan, Bipolar 1 disorder, mixed F3 1.60 [facility] [address] [place] [id number] [place] [address] Jan, [place] [address] [place] [id number] [place] [address] Jan, Bipolar 1 disorder, mixed F3 1.60 [place] [address] [place] [id number] [place] [address] Jan, Bipolar 1 disorder, mixed F3 1.60 [place] [address] [place] [id number] [place] [address] Jan, Allergic rhinitis J30.9 ; He maturia R31.9 and Colon cancer screening Z12.11 [facility] [address] [place] [id number] [place] [address] Dec, Bipolar 1 disorder, mixed F3 1.60 [place] [address] [place] [id number] [place] [address] Dec, Bipolar 1 disorder, mixed F3 1.60 ; Generalized anxiety disorder F41.1 and Other missing persons investigator (current) drug therapy Z79.899 [facility] [address] [place] [id number] [place] [address] Dec, Bipolar 1 disorder, mixed F3 1.60 [place] [address] [place] [id number] [place] [address] Dec, Bipolar 1 disorder, mixed F3 1.60 [facility] [address] [place] [id number] [place] [address] Dec, Bipolar 1 disorder, mixed F3 1.60 [facility] [address] [facility] [id number] [address] [place] [address] Dec, Low back pain M54.5 and Recu rrent urinary tract infection N39.0 [facility] [address] [facility] [id number] [address] [place] [address] Nov, Bipolar 1 disorder, mixed F3 1.60 [facility] [address] [facility] [id number] [address] [place] [address] Nov, Bipolar 1 disorder, mixed F3 1.60 [facility] [address] [facility] [id number] [address] [place] [address] Nov, Bipolar 1 disorder, mixed F3 1.60 [facility] [address] [facility] [id number] [address] [place] [address] Nov, Bipolar 1 disorder, mixed F3 1.60 [facility] [address] [facility] [id number] [address] [place] [address] Nov, [facility] [address] [facility] [id number] [address] [place] [address] Nov, Anesthesia of skin R20.0 ; F requent UTI N39.0 ; Tobacco abuse Z72.0 and Colon cancer screening Z12.11 [facility] [address] [facility] [id number] [address] [place] [address] Nov, Bipolar 1 disorder, mixed F3 1.60 [facility] [address] [facility] [id number] [address] [place] [address] October, Bipolar 1 disorder, mixed F3 1.60 [facility] [address] [facility] [id number] [address] [place] [address] October, Bipolar 1 disorder, mixed F3 1.60 [facility] [address] [facility] [id number] [address] [place] [address] October, Bipolar 1 disorder, mixed F3 1.60 [facility] [address] [facility] [id number] [address] [place] [address] October, Bipolar 1 disorder, mixed F3 1.60 [place] [address] [place] [id number] [place] [address] October, Bipolar 1 disorder, mixed F3 1.60 [place] [address] [place] [id number] [place] [address] October, Cervicalgia M54.2 and Bipola r 1 disorder, mixed F31.60 [place] [address] [place] [id number] [place] [address] October, Hypertension I10 ; Hyperlipi demia, unspecified hyperlipidemia type E78.5 and Family history of thyroid disease Z83.49 [place] [address] [place] [id number] [place] [address] October, [place] [address] [address] October, Hypertension I10 ; Hyperlipi demia, unspecified hyperlipidemia type E78.5 and Family history of thyroid problem Z83.49 [place] [address] [place] [id number] [place] [address] October, Bipolar 1 disorder, mixed F3 1.60 [place] [address] [place] [id number] [place] [address] Sep, Bipolar 1 disorder, mixed F3 1.60 [place] [address] [place] [id number] [place] [address] Sep, Bipolar 1 disorder, mixed F3 1.60 [place] [address] [place] [id number] [place] [address] Sep, Bipolar 1 disorder, mixed F3 1.60 [place] [address] [place] [id number] [place] [address] Sep, History of colon polyps Z86. 010 and Hematochezia K92.1 [place] [address] [facility] [id number] [address] [place] [address] Sep, Major depressive disorder, r ecurrent episode, moderate F33.1 [facility] [address] [facility] [id number] [address] [place] [address] Sep, Bipolar 1 disorder, mixed F3 1.60 [facility] [address] [facility] [id number] [address] [place] [address] Aug, Hot flashes due to menopause N95.1 [facility] [address] [facility] [id number] [address] [place] [address] Aug, Bipolar 1 disorder, mixed F3 1.60 [facility] [address] [place] [id number] [place] [address] Aug, [facility] [address] [place] [id number] [place] [address] Aug, Bipolar 1 disorder, mixed F3 1.60 [facility] [address] [facility] [id number] [address] [place] [address] Aug, Bipolar 1 disorder, mixed F3 1.60 [facility] [address] [place] [id number] [place] [address] Aug, Hot flashes due to menopause N95.1 ; Cervicalgia M54.2 and Ataxia R27.0 [facility] [address] [facility] [id number] [address] [place] [address] Jul, Bipolar 1 disorder, mixed F3 1.60 [facility] [address] [facility] [id number] [address] [place] [address] Jul, Bipolar 1 disorder, mixed F3 1.60 [facility] [address] [facility] [id number] [address] [place] [address] Jul, Bipolar 1 disorder, mixed F3 1.60 [facility] [address] [place] [id number] [place] [address] Jul, Bipolar 1 disorder, mixed F3 1.60 [place] [address] [address] 10 Jul, 2016 Bipolar 1 disorder, mixed F3 1.60 [place] [address] [place] [id number] 08 Jul, 2016 Cervicalgia M54.2 ; Tremor R 25.1 ; Hearing abnormally acute, unspecified laterality H93.239 ; Alopecia L65.9 ; Encounter for immunization Z23 and Family history of thyroid disease Z83.49 [place] [address] [address] Jul, Bipolar 1 disorder, mixed F3 1.60 [place] [address] [place] [id number] Jun, [place] [address] [place] [id number] Jun, Hearing disorder, unspecifie d laterality H93.299 [place] [address] [address] Jun, Bipolar 1 disorder, mixed F3 1.60 [place] [address] [address] Jun, Bipolar 1 disorder, mixed F3 1.60 [place] [address] [address] Jun, Allergic rhinitis J30.9 [place] [address] [address] Jun, Bipolar 1 disorder, mixed F3 1.60 [place] [address] [address] Jun, Bipolar 1 disorder, mixed F3 1.60 [place] [address] [address] Jun, Allergic rhinitis J30.9 [place] [address] [place] [id number] Jun, Allergic rhinitis J30.9 [facility] [address] [facility] [id number] [address] [place], [place] [address] Jun, Bipolar 1 disorder, mixed F3 1.60 [facility] [address] [facility] [id number] [address] [place] [address] May, Bipolar 1 disorder, mixed F3 1.60 [facility] [address] [facility] [id number] [address] [place] [address] May, Bipolar 1 disorder, mixed F3 1.60 [facility] [address] [facility] [id number] [address] [place] [address] May, [facility] [address] [place] [id number] [place] [address] May, Bipolar 1 disorder, mixed F3 1.60 [facility] [address] [facility] [id number] [address] [place] [address] May, Bipolar 1 disorder, mixed F3 1.60 [facility] [address] [facility] [id number] [address] [place] [address] May, [facility] [address] [place] [id number] [place] [address] May, [facility] [address] [place] [id number] [place] [address] May, [facility] [address] [place] [id number] [place] [address] May, Abdominal pain, unspecified location R10.9 [facility] [address] [facility] [id number] [address] [place] [address] May, [facility] [address] [place] [id number] [place], [place] [id number] Apr, Hematuria R31.9 ; Ataxia R27 .0 and Hearing loss, unspecified laterality H91.90 [facility] [address] [place] [id number] [place], [place] [id number] Apr, Bipolar 1 disorder, mixed F3 1.60 [facility] [address] [place] [address] Apr, Acute effusion of both middl e ears H65.193 [facility] [address] [place] [address] 10 Apr, 2016 Hematuria R31.9 and Pyelonep hritis N12 [facility] [address] [address] Apr, [place] [address] [address] Mar, Bipolar 1 disorder, mixed F3 1.60 [facility] [address] [address] Mar, [facility] [address] [address] Mar, Bipolar 1 disorder, mixed F3 1.60 [place] [address] [address] Mar, Bipolar 1 disorder, mixed F3 1.60 [facility] [address] [address] Mar, Encounter for immunization Z 23 and Gastritis without bleeding, unspecified chronicity, unspecified gastritis type K29.70 [facility] [address] [place] [id number] [place] [address] Mar, Bipolar 1 disorder, mixed F3 1.60 and Grief F43.20 [place] [address] [address] Mar, Gastritis without bleeding, unspecified chronicity, unspecified gastritis type K29.70 [place] [address] [place] [id number] [place] [address] Mar, Bipolar 1 disorder, mixed F3 1.60 [place] [address] [facility] [id number] [address] [place] [address] 05 Mar, 2016 Gastritis without bleeding, unspecified chronicity, unspecified gastritis type K29.70 [facility] [address] [facility] [id number] [address] [place] [address] Mar, [facility] [address] [place] [id number] [place] [address] Feb, Bipolar 1 disorder, mixed F3 1.60 [facility] [address] [facility] [id number] [address] [place] [address] Feb, Bipolar 1 disorder, mixed F3 1.60 and Grief F43.20 [place] [address] [facility] [id number] [address] [place] [address] Feb, Gastritis without bleeding, unspecified chronicity, unspecified gastritis type K29.70 [place] [address] [place] [id number] [place] [address] 14 Feb, 2016 Bipolar 1 disorder, mixed F3 1.60 [facility] [address] [facility] [id number] [address] [place] [address] 09 Feb, 2016 Gastroesophageal reflux dise ase, esophagitis presence not specified K21.9 [facility] [address] [facility] [id number] [address] [place] [address] Jan, Bipolar 1 disorder, mixed F3 1.60 [facility] [address] [place] [id number] [place] [address] Jan, Bipolar 1 disorder, mixed F3 1.60 and Unsteady gait R26.81 [place] [address] [facility] [id number] [address] [place] [address] Jan, Bipolar 1 disorder, mixed F3 1.60 [facility] [address] [place] [id number] [place] [address] Jan, Bipolar 1 disorder, mixed F3 1.60 and Other jail (current) drug therapy Z79.899 [place] [address] [place] [id number] [place] [address] Jan, Bipolar 1 disorder, mixed F3 1.60 [facility] [address] [place] [id number] [place] [address] Jan, Bipolar 1 disorder, mixed F3 1.60 [facility] [address] [place] [id number] [place] [address] Jan, Bipolar 1 disorder, mixed F3 1.60 ; Grief F43.20 and Other jail (current) drug therapy Z79.899 [facility] [address] [place] [id number] [place] [address] Jan, Bipolar 1 disorder, mixed F3 1.60 [facility] [address] [place] [id number] [place] [address] Dec, [facility] [address] [address] Dec, Bipolar 1 disorder, mixed F3 1.60 ; Vitamin D deficiency, unspecified E55.9 ; H/O allergic rhinitis Z87.09 ; Other chronic pain G89.29 and Dorsalgia, unspecified M54.9 [facility] [address] [place] [id number] [place] [address] Dec, [facility] [address] [place] [id number] [place] [address] Dec, Bipolar 1 disorder, mixed F3 1.60 [facility] [address] [place] [id number] [place] [address] Dec, Major depressive disorder, r ecurrent episode, moderate F33.1 [facility] [address] [place] [id number] [place] [address] Dec, Major depressive disorder, r ecurrent episode, moderate F33.1 [facility] [address] [place] [id number] [place] [address] Nov, [facility] [address] [place] [id number] [place] [address] Nov, Bipolar 1 disorder, mixed F3 1.60 [place] [address] [facility] [id number] [address] [place] [address] Nov, Major depressive disorder, r ecurrent episode, moderate F33.1 [place] [address] [facility] [id number] [address] [place] [address] Nov, Cervicalgia M54.2 ; Arthralg ia of hip, unspecified laterality M25.559 ; Allergic rhinitis J30.9 and Hormone replacement therapy Z79.890 [facility] [address] [facility] [id number] [address] [place] [address] Nov, Other seasonal allergic rhin itis J30.2 [place] [address] [facility] [id number] [address] [place] [address] October, Major depressive disorder, r ecurrent episode, moderate F33.1 [place] [address] [place] [id number] [place] [address] October, Major depressive disorder, r ecurrent episode, moderate F33.1 and Arthralgia of hip, unspecified laterality M25.559 [place] [address] [place] [address] October, Grief F43.20 ; Hypertension I10 ; Hyperlipidemia, unspecified hyperlipidemia type E78.5 ; Other chronic pain G89.29 and Allergic rhinitis, unspecified allergic rhinitis type J30.9 [facility] [address] [place] [id number] [place] [address] October, Major depressive disorder, r ecurrent episode, moderate F33.1 [place] [address] [place] [id number] [place] [address] Sep, Major depressive disorder, r ecurrent episode, moderate F33.1 [place] [address] [place] [id number] [place] [address] Sep, [place] [address] [place] [address] Sep, Major depressive disorder, r ecurrent episode, moderate F33.1 [place] [address] [address] Sep, Grief F43.20 [place] [address] [place] [id number] [place] [address] Aug, Major depressive disorder, r ecurrent episode, moderate F33.1 [place] [address] [place] [id number] [place] [address] Aug, Bipolar 1 disorder, mixed F3 1.60 [place] [address] [address] Aug, Allergic rhinitis J30.9 ; Ce rvicalgia M54.2 and Low back pain M54.5 [place] [address] [address] Aug, Major depressive disorder, r ecurrent episode, moderate F33.1 [facility] [address] [place] [id number] [place] [address] Aug, Sinusitis J32.9 and Tobacco dependence F17.200 [place] [address] [place] [id number] [place] [address] Aug, [facility] [address] [address] Aug, Depressive disorder, not els ewhere classified F32.9 ; Hormone replacement therapy Z79.[address] scan, head R93.0 [place] [address] [place] [id number] [place] [address] Aug, Major depressive disorder, r ecurrent episode, moderate F33.1 [facility] [address] [place] [id number] [place] [address] Jul, Major depressive disorder, r ecurrent episode, moderate F33.1 [place] [address] [place] [id number] [place] [address] 17 Jul, 2015 Abdominal pain R10.9 and Hyp ertension I10 [facility] [address] [id number] [address] [place] [address] 08 Jul, 2015 [facility] [address] [facility] [id number] [address] [place] [address] 05 Jul, 2015 Major depressive disorder, r ecurrent episode, moderate F33.1 [facility] [address] [id number] [address] [place] [address] 04 Jul, 2015 [facility] [address] [id number] [address] [place] [address] Jul, [facility] [address] [facility] [id number] [address] [place] [address] Jun, [facility] [address] [facility] [id number] [address] [place] [address] Jun, Depressive disorder, not els ewhere classified F32.9 [facility] [address] [id number] [address] [place] [address] Jun, [facility] [address] [facility] [id number] [address] [place] [address] Jun, [facility] [address] [facility] [id number] [address] [place] [address] Jun, Arthralgia of hip, unspecifi ed laterality M25.559 ; Bruising, spontaneous R23.3 and Night sweats R61 [facility] [address] [id number] [address] [place] [address] Jun, [facility] [address] [facility] [id number] [address] [place] [address] Jun, [facility] [address] [facility] [id number] [address] [place] [address] May, [facility] [address] [facility] [id number] [address] [place] [id number] May, Myalgia M79.1 and Screening, lipid Z13.220 [facility] [address] [facility] [id number] [address] [place] [id number] Apr, Status post cervical spinal fusion Z98.1 ; Fibromyalgia M79.7 and Unsteady gait R26.81 [facility] [address] [id number] [address] [place] [id number] Nov, [facility] [address] [id number] [address] [place] [id number] Nov, [facility] [address] [id number] [address] [place] [id number] October, [facility] [address] [id number] [address] [place] [id number] October, [facility] [address] [facility] [id number] [address] [place] [id number] October, [facility] [address] [id number] [address] [place] [id number] October, [facility] [address] [facility] [id number] [address] [place] [id number] October, [facility] [address] [facility] [id number] [address] [place] [id number] October, Dysuria 788.1 ; Nausea 787.0 2 and Urinary tract infection 599.0 [facility] [address] [id number] [address] [place] [id number] Sep, [facility] [address] [id number] [address] [place] [id number] Sep, [facility] [address] [facility] [id number] [address] [place] [id number] Aug, [facility] [address] [id number] [address] [place] [id number] Aug, [facility] [address] [id number] [facility] [address] 24 Aug, 2014 [facility] [address] [id number] [address] [place] [address], [place] [phone] 24 Aug, 2014 [facility] [address] [id number] [facility] [address] 23 Aug, 2014 [facility] [address] [id number] [address] [place] [address], [place] [address] 19 Aug, 2014 [facility] [address] [id number] [address] [place] [address], [place] [id number] 19 Aug, 2014 [facility] [address] [id number] [address] [place] [address], [place] [address] 19 Aug, 2014 [facility] [address] [id number] [address] [place] [address], [place] [address] 19 Aug, 2014 [facility] [address] [id number] [address] [place] [address], [place] [address] 18 Aug, 2014 [facility] [address] [id number] [address] [place] [address], [place] [address] 18 Aug, 2014 [facility] [address] [id number] [address] [place] [address], [place] [address] 13 Aug, 2014 [facility] [address] [id number] [address] [place] [address], [place] [address] 13 Aug, 2014 [facility] [address] [id number] [address] [place] [address], [place] [address] 11 Aug, 2014 [facility] [address] [id number] [address] [place] [address], [place] [address] 11 Aug, 2014 [facility] [address] [id number] [address] [place] [address], [place] [address] 06 Aug, 2014 [facility] [address] [id number] [address] [place] [address], [place] [address] 06 Aug, 2014 [facility] [address] [id number] [address] [place] [address], [place] [address] 05 Aug, 2014 [facility] [address] [id number] [address] [place] [address], [place] [address] 05 Aug, 2014 [facility] [address] [id number] [address] [place] [address], [place] [address] Aug, [facility] [address] [id number] [address] [place] [address], [place] [address] Aug, [facility] [address] [id number] [address] [place] [address], [place] [address] Aug, [facility] [address] [id number] [address] [place] [address], [place] [address] Jul, [facility] [address] [id number] [address] [place] [address], [place] [address] Jul, 2014 [facility] [address] [id number] [address] [place] [address], [place] [address] Jul, 2014 [facility] [address] [id number] [address] [place] [address], [place] [address] Jul, 2014 [facility] [address] [id number] [address] [place] [address], [place] [address] Jul, [facility] [address] [id number] [address] [place] [address], [place] [address] Jul, [facility] [address] [id number] [address] [place] [address], [place] [address] Jul, 2014 [facility] [address] [id number] [address] [place] [address], [place] [address] Jul, 2014 [facility] [address] [id number] [address] [place] [address], [place] [address] Jul, 2014 [facility] [address] [id number] [address] [place] [address], [place] [address] Jul, 2014 [facility] [address] [id number] [address] [place] [address], [place] [address] 18 Jul, 2014 [facility] [address] [id number] [address] [place] [address], [place] [address] 18 Jul, 2014 [facility] [address] [id number] [address] [place] [address], [place] [address] Jul, [facility] [address] [id number] [address] [place] [address], [place] [address] Jul, [facility] [address] [id number] [address] [place] [address], [place] [address] Jun, [facility] [address] [id number] [address] [place] [address], [place] [address] Jun, [facility] [address] [id number] [address] [place] [address], [place] [address] Jun, [facility] [address] [id number] [address] [place] [address], [place] [address] Jun, [facility] [address] [id number] [address] [place] [address], [place] [address] Jun, [facility] [address] [id number] [address] [place] [address], [place] [address] Jun, [facility] [address] [id number] [address] [place] [address], [place] [address] May, [facility] [address] [id number] [address] [place] [address], [place] [address] May, [facility] [address] [id number] [address] [place] [address], [place] [address] May, [facility] [address] [id number] [address] [place] [address], [place] [address] May, [facility] [address] [id number] [address] [place] [address], [place] [address] May, [facility] [address] [id number] [address] [place] [address], [place] [address] May, [facility] [address] [id number] [address] [place] [address], [place] [address] Apr, [facility] [address] [id number] [address] [place] [address], [place] [address] Apr, [facility] [address] [id number] [address] [place] [address], [place] [address] Apr, [facility] [address] [id number] [address] [place] [address], [place] [address] Apr, [facility] [address] [id number] [address] [place] [address], [place] [address] Apr, [facility] [address] [id number] [address] [place] [address], [place] [address] Apr, [facility] [address] [id number] [address] [place] [address], [place] [address] Mar, [facility] [address] [id number] [address] [place] [address], [place] [address] Mar, [facility] [address] [id number] [address] [place] [address] Mar, [facility] [address] [id number] [address] [place] [address] Mar, [facility] [address] [id number] [address] [place] [address] Mar, [facility] [address] [id number] [address] [place] [address] Mar, [facility] [address] [id number] [address] [place] [address] Mar, [facility] [address] [id number] [address] [place] [address] Mar, [facility] [address] [id number] [address] [place] [address] Mar, [facility] [address] [id number] [address] [place] [address] Mar, [facility] [address] [id number] [address] [place] [address], [place] [address] Mar, [facility] [address] [id number] [address] [place] [address], [place] [address] Mar, [facility] [address] [id number] [address] [place] [address], [place] [address] 30 Feb, 2014 [facility] [address] [id number] [address] [place] [address], [place] [address] Feb, [facility] [address] [id number] [address] [place] [address], [place] [address] Feb, [facility] [address] [id number] [address] [place] [address], [place] [address] Feb, [facility] [address] [id number] [address] [place] [address], [place] [address] Feb, [facility] [address] [id number] [address] [place] [address], [place] [address] Feb, [facility] [address] [id number] [address] [place] [address], [place] [address] Feb, [facility] [address] [id number] [address] [place] [address], [place] [address] Jan, [facility] [address] [id number] [address] [place] [address], [place] [address] Jan, [facility] [address] [id number] [address] [place] [address], [place] [address] Jan, [facility] [address] [id number] [address] [place] [address], [place] [address] Dec, [facility] [address] [id number] [address] [place] [address], [place] [address] Dec, [facility] [address] [id number] [address] [place] [address], [place] [address] Dec, [facility] [address] [id number] [address] [place] [address], [place] [address] Dec, [facility] [address] [id number] [address] [place] [address], [place] [address] Sep, [facility] [address] [id number] [address] [place] [address], [place] [address] Sep, [facility] [address] [id number] [address] [place] [address], [place] [address] Sep, [facility] [address] [id number] [address] [place] [address], [place] [address] Sep, [facility] [address] [id number] [address] [place] [address], [place] [address] Sep, [facility] [address] [id number] [address] [place] [address], [place] [address] Sep, [facility] [address] [id number] [address] [place] [address], [place] [address] Sep, [facility] [address] [id number] [address] [place] [address], [place] [address] Sep, [facility] [address] [id number] [address] [place] [address], [place] [address] Aug, [facility] [address] [id number] [address] [place] [address], [place] [address] Aug, [facility] [address] [id number] [address] [place] [address], [place] [address] May, [facility] [address] [id number] [address] [place] [address], [place] [address] May, [facility] [address] [id number] [address] [place] [address], [place] [address] Apr, [facility] [address] [id number] [address] [place] [address], [place] [address] Apr, [facility] [address] [id number] [address] [place] [address], [place] [address] Apr, [facility] [address] [id number] [address] [place] [address], [place] [address] Apr, [facility] [address] [id number] [address] [place] [address], [place] [address] Apr, [facility] [address] [id number] [address] [place] [address], [place] [address] Apr, [facility] [address] [id number] [address] [place] [address], [place] [address] 18 May, 2012 [facility] [address] [id number] [address] [place] [address], [place] [address] 18 May, 2012 [facility] [address] [id number] [address] [place] [address], [place] [address] 15 May, 2012 [facility] [address] [id number] [address] [place] [address], [place] [address] 15 May, 2012 [facility] [address] [id number] [address] [place] [address], [place] [address] 13 May, 2012 [facility] [address] [id number] [address] [place] [address], [place] [address] 13 May, 2012 [facility] [address] [id number] [address] [place] [address], [place] [address] 13 Apr, 2012 [facility] [address] [id number] [address] [place] [address], [place] [address] 13 Apr, 2012 [facility] [address] [id number] [address] [place] [address], [place] [address] Apr, [facility] [address] [id number] [address] [place] [address], [place] [address] Apr, [facility] [address] [id number] [address] [place] [address], [place] [address] Apr, [facility] [address] [id number] [address] [place] [address], [place] [address] Apr, [facility] [address] [id number] [address] [place] [address], [place] [address] Apr, [facility] [address] [id number] [address] [place] [address], [place] [address] Apr, [facility] [address] [id number] [address] [place] [address], [place] [address] Apr, [facility] [address] [id number] [address] [place] [address], [place] [address] Apr, [facility] [address] [id number] [address] [place] [address], [place] [address] Mar, [facility] [address] [id number] [address] [place] [address], [place] [address] Mar, [facility] [address] [id number] [address] [place] [address], [place] [address] Mar, [facility] [address] [id number] [address] [place] [address], [place] [address] Mar, [facility] [address] [id number] [address] [place] [address], [place] [address] Mar, [facility] [address] [id number] [address] [place] [address], [place] [address] Mar, [facility] [address] [id number] [address] [place] [address], [place] [address] Mar, [facility] [address] [id number] [address] [place] [address], [place] [address] Mar, [facility] [address] [id number] [address] [place] [address], [place] [address] Mar, [facility] [address] [id number] [address] [place] [address], [place] [address] 25 Feb, 2012 [facility] [address] [id number] [address] [place] [address], [place] [address] 16 Feb, 2012 [facility] [address] [id number] [address] [place] [address], [place] [address] 11 Feb, 2012 [facility] [address] [id number] [address] [place] [address], [place] [address] Jan, [facility] [address] [id number] [facility] [address] Jan, [facility] [address] [id number] [address] [place] [address], [place] [address] Jan, [facility] [address] [id number] [address] [place] [address], [place] [address] Jan, [facility] [address] [id number] [address] [place] [address], [place] [address] Jan, [facility] [address] [id number] [address] [place] [address], [place] [address] Jan, [facility] [address] [id number] [address] [place] [address], [place] [address] Jan, [facility] [address] [id number] [address] [place] [address], [place] [address] Jan, [facility] [address] [id number] [address] [place] [address], [place] [address] Jan, [facility] [address] [id number] [address] [place] [address], [place] [address] Jan, [facility] [address] [id number] [address] [place] [address], [place] [address] Dec, [facility] [address] [id number] [address] [place] [address], [place] [address] Dec, [facility] [address] [id number] [address] [place] [address], [place] [address] Dec, [facility] [address] [id number] [address] [place] [address], [place] [address] Dec, [facility] [address] [id number] [address] [place] [address], [place] [address] Nov, [facility] [address] [id number] [address] [place] [address], [place] [address] Nov, [facility] [address] [id number] [address] [place] [address] 07 Nov, 2011 [facility] [address] [id number] [address] [place] [address] October, [facility] [address] [id number] [address] [place] [address] October, [facility] [address] [id number] [address] [place] [address] October, [facility] [address] [id number] [address] [place] [address] October, [facility] [address] [id number] [address] [place] [address] October, [facility] [address] [id number] [address] [place] [address] October, [facility] [address] [id number] [address] [place] [address] Aug, [facility] [address] [id number] [address] [place] [address] Mar, [facility] [address] [id number] [address] [place] [address] Nov, [facility] [address] [id number] [address] [place] [address] May, [facility] [address] [id number] [address] [place] [address] May, [facility] [address] [id number] [address] [place] [address] Apr, [facility] [address] [id number] [address] [place] [address] Mar, [facility] [address] [id number] [address] [place] [address] Mar, IMMUNIZATIONS No Known Immunizations SOCIAL HISTORY [...]
--- NOTE | 2020-02-02 19:43 | ED GU-Female ---
General Chief Complaint: - Urinary Stated Complaint: CATH REMOVAL Nursing Triage Note: PT AMBULATE TO ROOM 05 WITH C/O BLADDER SPASMS AND PT IS REQUESTING REMOVAL OF INDWELLING URINARY CATH. PT STATES HAD CYSTOSCOPY PROCEDURE DONE TODAY IN [place] AND URINARY CATHETER WAS PLACED AT THAT TIME. PT STATES SHE CONTACTED THAT PROVIDER AND WAS TOLD TO COME TO ED FOR CATH REMOVAL AND MEDICATION. Nursing Sepsis Screen: No Definite Risk Source: patient History of Present Illness Date Seen by Provider: Feb 02, 2020 Time Seen by Provider: 19:33 Initial Comments PT ARRIVES VIA POV FROM HOME PT HAS ERAZO CATHETER IN PLACE, DUE TO PROCEDURE THIS MORNING IN [place], BY DR. GARCIA PT HAD URETHRAL DILATION AND CYSTOSCOPY WITH [facility]--FOR CHRONIC UTI'S AND HEMATURIA SENT HOME WITH ERAZO IN PLACE AND HAS A FOLLOW UP APPOINTMENT ON SUNDAY WITH DR. GARCIA FOR RECHECK AND TO HAVE CATHETER PT STATES SHE IS HAVING ALOT OF BLADDER SPASMS AND WANTS THE CATHETER REMOVED. PT TOOK A PYRIDIUM AT 1700, AND WAS GIVEN RX FOR KEFLEX PT STATES SHE CALLED DR. GARCIA THIS EVENING, WHO ADVISED HER TO COME HERE AND HAVE CATHETER REMOVED. Allergies and Home Medications Allergies Coded Allergies: iodine (Verified Allergy, Severe, HIVES, 05/24/19) morphine (Verified Allergy, Severe, HIVES, 05/24/19) hydrocodone (Verified Allergy, Intermediate, Itching, 05/24/19) oxycodone (Verified Allergy, Intermediate, Itching, 05/24/19) Home Medications Baclofen 20 Mg Tablet, 20 MG PO BID PRN for MUSCLE SPASMS, (Reported) Bupropion HCl 300 Mg Tab.er.24h, 300 MG PO DAILY, (Reported) C,E,Zinc,Copper 11/Tysez2s/Lut 1 Each Capsule, 1 EACH PO DAILY, (Reported) Calcium Carbonate 600 Mg Tablet, 1,200 MG PO DAILY, (Reported) Cholecalciferol (Vitamin D3) 1,000 Unit Tablet, 3,000 UNIT PO DAILY, (Reported) Ciprofloxacin HCl 500 Mg Tablet, 500 MG PO BID Prescribed by: GREG SNOW on 11/27/19 1200 Dicyclomine HCl 20 Mg Tablet, 20 MG PO TID, (Reported) Divalproex Sodium 500 Mg Tab.er.24h, 1,000 MG PO HS, (Reported) TAKES 2 (500MG) TABS AT BEDTIME Estradiol 2 Mg Tablet, 2 MG PO DAILY, (Reported) Estradiol 10 Mcg Tablet, 10 MCG VG MoFr, (Reported) Gabapentin 300 Mg Capsule, 300 MG PO BID, (Reported) Hydroxyzine HCl 10 Mg Tablet, 10 MG PO TID PRN for ANXIETY, (Reported) Ibuprofen 600 Mg Tablet, 600 MG PO Q6H PRN for PAIN-MILD, (Reported) LImeracidoph & Paracasei,B.lactis 1 Each Capsule, 1 EACH PO DAILY, (Reported) Levocetirizine Dihydrochloride 5 Mg Tablet, 5 MG PO HS, (Reported) Levomilnacipran Hydrochloride 120 Mg Cap.sa.24h, 120 MG PO DAILY, (Reported) Mometasone Furoate 17 Gm [place].pump, 1 SPRAY NSEACH DAILY, (Reported) Multivitamins-Min/FA/Ginkgo 1 Each Tablet, 1 EACH PO DAILY, (Reported) Pantoprazole Sodium 40 Mg Tablet.dr, 40 MG PO DAILY, (Reported) Phenazopyridine HCl 100 Mg Tablet, 100 MG PO Q8H PRN for SPASMS Prescribed by: GREG SNOW on 11/27/19 1237 Polyethylene Glycol 3350 17 Gm Powd.pack, 17 GM PO PRN, (Reported) Selenomethionine 200 Mcg Tablet, 200 MCG PO DAILY, (Reported) Simethicone 125 Mg Tab.chew, 125 MG PO PRN PRN for GAS, (Reported) Tramadol HCl 50 Mg Tablet, 50 MG PO Q6H PRN for PAIN-MILD (1-4), (Reported) Patient Home Medication List Home Medication List Reviewed: Yes Review of Systems Review of Systems Constitutional: no symptoms reported Genitourinary: see HPI Past Afxvpog-Lsmidu-Zgijww Hx Patient Social History Alcohol Use: Denies Use Recreational Drug Use: No Smoking Status: Current Everyday Smoker Type Used: Cigarettes 2nd Hand Smoke Exposure: No Recent Foreign Travel: No Contact w/Someone Who Travel: No Recent Infectious Disease Expo: No Recent Hopitalizations: No Physical Abuse: No Sexual Abuse: No Mistreated: No Fear: No Immunizations Up To Date Tetanus Booster (TDap): More than 5yrs PED Vaccines UTD: No Date of Pneumonia Vaccine: Apr 23, 2018 Date of Influenza Vaccine: Mar 19, 2019 Seasonal Allergies Seasonal Allergies: Yes Past Medical History Surgeries: Yes (neck fusion, bladder tie up, ovarian cystectomy, cystocele/rectocele ) Adenoidectomy, Appendectomy, Bladder Surgery, Eye Surgery, Gallbladder, Hysterectomy, Oophorectomy, Tonsillectomy Respiratory: No Cardiac: No Hypertension Neurological: Yes Headaches /Migraines, Vertigo Reproductive Disorders: No Female Reproductive Disorders: Ovarian Cyst 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 Sexually Transmitted Disease: No HIV/AIDS: No Genitourinary: Yes (BLADDER SURGERY) Bladder Infection, UTI-Chronic Gastrointestinal: Yes Gastroesophageal Reflux, Diverticulosis, Polyps, Irritable Bowel Musculoskeletal: Yes (STENOSIS) Arthritis, Fibromyalgia Endocrine: No Cataract Loss of Vision: Bilateral Hearing Impairment: Denies Cancer: No Brain Psychosocial: Yes Anxiety, Bipolar, Depression Integumentary: No Blood Disorders: No Adverse Reaction/Blood Tranf: No (N/A) Family Medical History Alcoholism 19 FATHER Alzheimer's disease 19 MOTHER Arthritis 19 FATHER 19 MOTHER Cardiovascular disease 19 FATHER (massive heart attack) 19 MOTHER (Mitrial valve prolapse, Stroke Multi.) Cataracts G8 SISTER Completed stroke 19 MOTHER Deafness or hearing loss G8 SISTER Dementia 19 MOTHER Diabetes mellitus 19 MOTHER Fibrocystic disease of breast G8 SISTER Hypercholesterolemia 19 FATHER 19 MOTHER G8 BROTHER G8 SISTER G8 SISTER Osteoporosis G8 SISTER Seizure disorder 19 FATHER Severe allergy G8 BROTHER G8 SISTER Thyroid disease 19 MOTHER G8 BROTHER G8 SISTER G8 SISTER No Family History of: AIDS Abdominal aortic aneurysm Mccune's disease Aphasia Asthma Cancer of mouth Colon cancer Congenital disease Coronary thrombosis Cystic fibrosis Drug abuse Dysphasia Glaucoma Headache disorder Hypertension Infertility Kidney disease Not obtainable due to adoption Parkinson's disease Prostate cancer Psychosocial problem Respiratory disorder Tuberculosis No Pertinent Family Hx PSH: -CYSTOSCOPY/URETHRAL DILATION/RETROGRADE DYE TEST 02/02/[address] GARCIA IN [place] Physical Exam Vital Signs Vital Signs - First Documented 02/02/20 02/02/20 19:21 20:01 Temp 36.8 Pulse 104 Resp 20 B/P (MAP) 143/98 (113) Pulse Ox 99 O2 Delivery Room Air Capillary Refill : Less Than 3 Seconds Height, Weight, BMI Height: 5'4.00" Weight: 165lbs. 0.0oz. 74.667393js; 26.00 BMI Method:Stated General Appearance: WD/WN, no apparent distress, other (TALKS AT GREAT LENGTH, PLEASANT, SMILING.) Genital/Rectal: other (ERAZO IN PLACE, DRAINING WELL. ) Progress/Results/Core Measures Suspected Sepsis Recent Fever Within 48 Hours: No Infection Criteria Present: None New/Unexplained Altered Menta: No Sepsis Screen: No Definite Risk SIRS Temperature: Pulse: 104 Respiratory Rate: 20 Blood Pressure 143 /98 Mean: 113 Results/Orders Vital Signs/I&O 02/02/20 02/02/20 19:21 20:01 Temp 36.8 Pulse 104 88 Resp 20 19 B/P (MAP) 143/98 (113) 149/82 Pulse Ox 99 O2 Delivery Room Air Room Air Capillary Refill : Less Than 3 Seconds Blood Pressure Mean: 113 Progress Note : Progress Note ERAZO REMOVED WITHOUT DIFFICULTY. Departure Communication (Admissions) 1935--SPOKE WITH DR. GARCIA, HE ADVISES TO REMOVE ERAZO AND HE WILL SEE PT IN FOLLOW UP ON SUNDAY SCHEDULED Impression Primary Impression: Erazo catheter problem Disposition: HOME, SELF-CARE Condition: Stable Departure-Patient Inst. Referrals: CARISSA ASHER MD (PCP/Family) Primary Care Physician Patient Instructions: How to Prevent Catheter Associated Urinary Tract Infections Add. Discharge Instructions: INCREASE YOUR FLUID INTAKE CONTINUE ALL PREVIOUS INSTRUCTIONS FOLLOW UP WITH DR. GARCIA ON SUNDAY SCHEDULED OR SOONER IF PROBLEMS All discharge instructions reviewed with patient and/or family. Voiced understanding. PROSPER BUTLER DO Feb 02, 2020 19:43
--- OUTSIDE RECORDS SUMMARY | 2020-02-02 19:43 | XMS REPORT ---
Author Author Sydnie HANCOCK [facility] Address [address] [place] [address] Care Team Providers Care Ed Tech Name Role Phone NAHOMY HANCOCK Unavailable PROBLEMS Type Condition ICD9-CM Code KPA01-HJ Code Onset Dates Condition S tatus SNOMED Code Problem Bruising, spontaneous R23.3 Active 305321249 Problem Arthralgia of hip, unspecified laterality M25.559 Active 48369900 Problem Night sweats R61 Active 0661701 0 Problem Grief F43.20 Active 27398628 Problem Hypertension I10 Active 9373341 3 Problem Hyperlipidemia, unspecified hyperlipidemia type E7 8.5 Active 79251929 Problem Other chronic pain G89.29 Active 8 3754510 Problem Bladder spasm N32.89 Active 893281 006 Problem Age-related osteoporosis without current pathological fracture M81.0 Active 93387846 Problem Fibromyalgia M79.7 Active 6782912 7 Problem Hormone replacement therapy Z79.890 Ac tive 958160748 Problem Sensorineural hearing loss (SNHL) of both ears H90 .3 Active 589522527 Problem Ab[address] CT scan, head R93.0 Active 622704951 Problem Allergic rhinitis J30.9 Active 61 532473 Problem Hearing loss, unspecified laterality H91.90 Active 46792652 Problem Generalized anxiety disorder F41.1 A ctive 64643215 Problem History of colon polyps Z86.010 Active 071309966 Problem Hammer toe of right foot M20.41 Activ e 894482765 Problem Hematuria, unspecified type R31.9 Ac tive 52548363 Problem Major depressive disorder, recurrent episode, moderate F33.1 Active 920792541 Problem Imbalance R26.89 Active 601915420 Problem Acute left-sided low back pain with left-sided sciatica M54.42 Active 142890254 Problem Sciatica of left side M54.32 Active 64098077 Problem Plantar wart of right foot B07.0 Act mitchell [id number] Problem Hearing loss, unspecified hearing loss type, uns pecified laterality H91.90 Active 81313272 Problem Bipolar 1 disorder, mixed F31.60 Acti ve 40630205 Problem Osteoporotic compression fracture of spine with delayed healing M80.88XG Active 49858568 Problem Gastritis without bleeding, unspecified chronicity, unspecified gastritis type K29.70 Active 727383315 Problem Ataxia R27.0 Active 67033649 Problem Slow transit constipation K59.01 Acti ve 10082339 Problem Tobacco use disorder F17.200 Active 074316758 Problem Post menopausal syndrome N95.1 Activ e 255324617 Problem Sciatica of right side M54.31 Active 68780028 ALLERGIES Substance Reaction Event Type Date Status Morphine Sulfate Unknown Drug Allergy Aug, Active Iodine Unknown Drug Allergy Aug, Active Lyrica 75 Mg Capsule "felt weird" Non Drug Allergy Aug, Act mitchell ENCOUNTERS Encounter Location Date Diagnosis [place] [address] [address] Sep, [place] [address] [address] Aug, [place] [address] [address] Aug, [place] [address] [address] 04 Aug, 2019 Age-related osteoporosis with current pa thological fracture with routine healing, subsequent encounter M80.00XD [place] [address] [address] 24 Jul, 2019 Age-related osteoporosis with current pa thological fracture with routine healing, subsequent encounter M80.00XD [place] [address] [address] 24 Jul, 2019 Osteoporotic compression fracture of spi ne with delayed healing M80.88XG and Tobacco use disorder F17.200 [place] [address] [address] 11 Jul, 2019 Bipolar 1 disorder, mixed F31.60 [place] [address] [address] Jul, [facility] [address] [address] Jul, Tobacco use disorder F17.200 [facility] [address] [address] 15 Jun, 2019 Bipolar 1 disorder, mixed F31.60 [facility] [address] [address] Jun, Bipolar 1 disorder, mixed F31.60 ; Gener alized anxiety disorder F41.1 and Tobacco use disorder F17.200 [facility] [address] [address] Jun, Tobacco use disorder F17.200 [facility] [address] [address] May, [facility] [address] [address] May, Compression fracture of L1 vertebra with routine healing, subsequent encounter S32.010D [facility] [address] [address] May, [facility] [address] [address] May, [facility] [address] [address] May, [facility] [address] [address] May, [facility] [address] [address] May, [facility] [address] [address] May, [facility] [address] [address] May, [facility] [address] [address] May, Bipolar 1 disorder, mixed F31.[address] [address] May, Closed fracture of right upper extremity with routine healing, subsequent encounter S42.301D and Hearing loss, unspecified hearing loss type, unspecified laterality H91.90 [place] [id number] May, [place] [address] Apr, Allergic rhinitis J30.9 ; Abdominal pain , unspecified location R10.9 and Seborrheic keratosis L82.[address] [address] Mar, Bipolar 1 disorder, mixed F31.[address] [address] Mar, Bipolar 1 disorder, mixed F31.60 ; Gener alized anxiety disorder F41.1 and Tobacco use disorder F17.[address] [address] Feb, Excessive gas R14.3 ; Other chronic pain G89.29 ; Encounter for immunization Z23 ; Hyperlipidemia, unspecified hyperlipidemia type E78.5 ; Bipolar 1 disorder, mixed F31.60 and 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 [address] Feb, Bipolar 1 disorder, mixed F31.[address] [address] Jan, Sciatica of right side M54.31 ; Low back pain M54.5 and Major depressive disorder, recurrent episode, moderate F33.[address] [address] Jan, Bipolar 1 disorder, mixed F31.[id number] [place] [address] Dec, Normal pelvic exam Z01.419 [place] [address] [address] Dec, Bipolar 1 disorder, mixed F31.60 [place] [address] [address] Nov, Bipolar 1 disorder, mixed F31.60 [place] [address] [address] Nov, Bipolar 1 disorder, mixed F31.60 ; Gener alized anxiety disorder F41.1 ; Tobacco use disorder F17.200 and 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 [place] [address] [address] Nov, [place] [address] [address] Nov, Bipolar 1 disorder, mixed F31.60 [place] [address] [address] October, Bipolar 1 disorder, mixed F31.60 [place] [address] [address] October, Bipolar 1 disorder, mixed F31.60 [place] [address] [address] October, [place] [address] [address] October, Bipolar 1 disorder, mixed F31.60 ; Gener alized anxiety disorder F41.1 and Tobacco use disorder F17.200 [place] [address] [address] Sep, [place] [address] [address] Sep, Encounter for Medicare annual wellness e xam Z00.00 ; Major depressive disorder, recurrent episode, moderate F33.1 ; Allergic rhinitis J30.9 ; Bipolar 1 disorder, mixed F31.60 ; Fibromyalgia M79.7 ; Hyperlipidemia, unspecified hyperlipidemia type E78.5 ; Hormone replacement therapy Z79.890 ; Encounter for screening for lung cancer Z12.2 and Tobacco use disorder F17.200 [place] [address] [address] 23 Sep, 2018 Bipolar 1 disorder, mixed F31.60 [place] [address] [address] Sep, Other chronic pain G89.29 ; Hyperlipidem ia, unspecified hyperlipidemia type E78.5 ; Breast cancer screening Z12.31 and Post menopausal syndrome N95.1 [place] [address] [address] 16 Sep, 2018 Bipolar 1 disorder, mixed F31.60 [place] [address] [address] Sep, Bipolar 1 disorder, mixed F31.60 ; Gener alized anxiety disorder F41.1 and Tobacco use disorder F17.200 [place] [address] [address] 11 Sep, 2018 Gastritis without bleeding, unspecified chronicity, unspecified gastritis type K29.70 [place] [address] [address] 08 Sep, 2018 Exercise counseling Z71.82 [place] [address] [address] Aug, Exercise counseling Z71.82 [place] [address] [address] Aug, Bipolar 1 disorder, mixed F31.60 [place] [address] [address] Aug, Exercise counseling Z71.82 [place] [address] [address] Aug, Bipolar 1 disorder, mixed F31.60 [place] [address] [address] Aug, Gastritis without bleeding, unspecified chronicity, unspecified gastritis type K29.70 ; Tobacco abuse Z72.0 ; Generalized anxiety disorder F41.1 and Weight gain R63.5 [place] [address] [address] Aug, Bipolar 1 disorder, mixed F31.60 ; Gener alized anxiety disorder F41.1 and Tobacco use disorder F17.200 [place] [address] [address] Jul, Bipolar 1 disorder, mixed F31.60 [place] [address] [address] Jul, [place] [address] [address] Jul, Bipolar 1 disorder, mixed F31.60 [place] [address] [address] Jul, Allergic rhinitis J30.9 ; Major depressi ve disorder, recurrent episode, moderate F33.1 and Tobacco dependence F17.200 [place] [address] [address] Jun, [place] [address] [address] Jun, [place] [address] [address] Jun, Bipolar 1 disorder, mixed F31.60 [place] [address] [address] Jun, Bipolar 1 disorder, mixed F31.60 [place] [address] [address] Jun, Bipolar 1 disorder, mixed F31.60 [place] [address] [address] Jun, Generalized anxiety disorder F41.1 ; Tob acco abuse Z72.0 and Major depressive disorder, recurrent episode, moderate F33.1 [place] [address] [address] May, Bipolar 1 disorder, mixed F31.60 [place] [address] [address] May, Bipolar 1 disorder, mixed F31.60 and Gen eralized anxiety disorder F41.1 [place] [address] [address] May, Bipolar 1 disorder, mixed F31.60 [place] [address] [address] May, Allergic rhinitis J30.9 [place] [address] [address] May, Bipolar 1 disorder, mixed F31.60 [place] [address] [address] May, [place] [address] [address] Apr, Allergic rhinitis J30.9 ; Dysfunction of both eustachian tubes H69.83 ; History of bladder surgery Z98.890 and Cervicalgia M54.2 [place] [address] [address] Mar, Bipolar 1 disorder, mixed F31.60 [place] [address] [address] Mar, [place] [address] [address] Mar, Slow transit constipation K59.01 ; Encou nter for immunization Z23 and Generalized anxiety disorder F41.1 [place] [address] [address] Feb, Bipolar 1 disorder, mixed F31.60 [place] [address] [address] 26 Feb, 2018 Allergic rhinitis J30.9 [facility] [address] [address] 24 Feb, 2018 Bipolar 1 disorder, mixed F31.60 [facility] [address] [address] 20 Feb, 2018 Bipolar 1 disorder, mixed F31.60 and Gen eralized anxiety disorder F41.1 [facility] [address] [address] 13 Feb, 2018 Bipolar 1 disorder, mixed F31.60 [facility] [address] [address] 11 Feb, 2018 Allergic rhinitis J30.9 [facility] [address] [address] 05 Feb, 2018 [facility] [address] [address] Jan, Bipolar 1 disorder, mixed F31.60 [facility] [address] [address] Jan, Low back pain M54.5 ; Hyperlipidemia, un specified hyperlipidemia type E78.5 and Bipolar 1 disorder, mixed F31.60 [facility] [address] [address] Jan, Bipolar 1 disorder, mixed F31.60 [facility] [address] [address] Jan, Bipolar 1 disorder, mixed F31.60 [facility] [address] [address] Jan, Bipolar 1 disorder, mixed F31.60 [facility] [address] [address] Jan, Bipolar 1 disorder, mixed F31.60 [facility] [address] [address] Dec, Bipolar 1 disorder, mixed F31.60 ; Gener alized anxiety disorder F41.1 and 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 [place] [address] [address] Dec, Other fuel cell repairer (current) drug therapy Z 79.899 [facility] [address] [address] Dec, Bipolar 1 disorder, mixed F31.60 [place] [address] [address] Dec, Bipolar 1 disorder, mixed F31.60 [place] [address] [address] Nov, Bipolar 1 disorder, mixed F31.60 [place] [address] [address] Nov, Bipolar 1 disorder, mixed F31.60 [place] [address] [address] Nov, Bipolar 1 disorder, mixed F31.60 [place] [address] [address] Nov, Allergic rhinitis J30.9 [place] [address] [address] Nov, Allergic rhinitis J30.9 [place] [address] [address] Nov, [place] [address] [address] Nov, Bipolar 1 disorder, mixed F31.60 [place] [address] [address] Nov, Fibromyalgia M79.7 and Allergic rhinitis J30.9 [place] [address] [address] October, Bipolar 1 disorder, mixed F31.60 [facility] [address] [facility] [id number] [address] [address] October, Acute nasopharyngitis J[address] [facility] [address] [facility] [id number] [place] [address] October, Bitten or stung by nonvenomo us insect and other nonvenomous arthropods, initial encounter W57.XXXA and Insect bite (nonvenomous) of abdominal wall, initial encounter S30.861A [facility] [address] [address] October, Insect bite (nonvenomous) of abdominal w all, initial encounter S30.861A ; Bitten or stung by nonvenomous insect and other nonvenomous arthropods, initial encounter W57.XXXA ; Allergic rhinitis J30.9 and Low back pain M54.5 [facility] [address] [address] October, Bipolar 1 disorder, mixed F31.60 [facility] [address] [address] October, [facility] [address] [address] October, [facility] [address] [address] October, Bipolar 1 disorder, mixed F31.60 [facility] [address] [address] Sep, Bipolar 1 disorder, mixed F31.60 [facility] [address] [address] Sep, Other chronic pain G89.29 [facility] [address] [address] Sep, [facility] [address] [address] Sep, Bipolar 1 disorder, mixed F31.60 [facility] [address] [place] [id number] [place] [address] Sep, Allergic rhinitis J30.9 and Sciatica of left side M54.32 [facility] [address] [place] [id number] [place] [address] Sep, Bipolar 1 disorder, mixed F31.60 [facility] [address] [place] [id number] [place] [address] Sep, Bipolar 1 disorder, mixed F31.60 and Gen eralized anxiety disorder F41.1 [facility] [address] [address] Aug, [place] [address] [address] Aug, Bipolar 1 disorder, mixed F31.60 [place] [address] [address] Aug, Bipolar 1 disorder, mixed F31.60 [place] [address] [address] Aug, [facility] [address] [address] Aug, Generalized anxiety disorder F41.1 [facility] [address] [place] [id number] [place] [address] Aug, Bipolar 1 disorder, mixed F31.60 [place] [address] [address] Aug, Plantar wart of right foot B07.0 [facility] [address] [place] [id number] [place] [address] Aug, Bipolar 1 disorder, mixed F31.60 [facility] [address] [place] [id number] [place] [address] Jul, Bipolar 1 disorder, mixed F31.60 [facility] [address] [place] [id number] [place] [address] Jul, [facility] [address] [address] 14 Jul, 2017 Bipolar 1 disorder, mixed F31.60 [facility] [address] [address] 09 Jul, 2017 Generalized anxiety disorder F41.1 [facility] [address] [address] 07 Jul, 2017 Bipolar 1 disorder, mixed F31.60 [facility] [address] [address] 07 Jul, 2017 Acute left-sided low back pain with left -sided sciatica M54.42 [place] [address] [address] 05 Jul, 2017 Coccydynia M53.3 [facility] [address] [address] Jun, Bipolar 1 disorder, mixed F31.60 [facility] [address] [facility] [id number] [place] [address] Jun, Acute nasopharyngitis J00 [facility] [address] [address] Jun, Bipolar 1 disorder, mixed F31.60 [facility] [address] [address] Jun, Fibromyalgia M79.7 [facility] [address] [address] Jun, Bipolar 1 disorder, mixed F31.60 [facility] [address] [address] Jun, Fibromyalgia M79.7 and Bipolar 1 disorde r, mixed F31.60 [facility] [address] [address] May, Bipolar 1 disorder, mixed F31.60 ; Gener alized anxiety disorder F41.1 and 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 [place] [address] [address] 14 May, 2017 Cough R05 and Body aches R52 [facility] [place] [address] [address] 10 May, 2017 Bladder spasm N32.89 and Acu te cystitis without hematuria N30.00 [place] [address] [address] 07 May, 2017 Bipolar 1 disorder, mixed F31.60 [place] [address] [address] Apr, [place] [address] [address] Apr, Major depressive disorder, recurrent epi sode, moderate F33.1 and Encounter for immunization Z23 [place] [address] [address] Apr, Bipolar 1 disorder, mixed F31.60 [place] [address] [place] [address] Apr, Bipolar 1 disorder, mixed F31.60 [place] [address] [address] 16 Apr, 2017 Bipolar 1 disorder, mixed F31.60 [place] [address] [address] 13 Apr, 2017 Yeast vaginitis B37.3 [place] [address] [address] 09 Apr, 2017 Bipolar 1 disorder, mixed F31.60 [facility] [address] [place] [id number] [place] [address] 07 Apr, 2017 Cellulitis L03.[address] for immunization Z23 [place] [address] [address] Apr, Bipolar 1 disorder, mixed F31.60 [place] [address] [address] Mar, Bipolar 1 disorder, mixed F31.60 [place] [address] [address] Mar, Bipolar 1 disorder, mixed F31.60 [place] [address] [address] Mar, Imbalance R26.89 and Encounter for immun ization Z23 [place] [address] [address] Mar, Generalized anxiety disorder F41.1 [place] [address] [address] Mar, Bipolar 1 disorder, mixed F31.60 [place] [address] [address] Mar, Generalized anxiety disorder F41.1 [place] [address] [address] Mar, Bipolar 1 disorder, mixed F31.60 [place] [address] [address] Mar, Bipolar 1 disorder, mixed F31.60 [place] [address] [address] Feb, Bipolar 1 disorder, mixed F31.60 [place] [address] [address] Feb, Bipolar 1 disorder, mixed F31.60 and Gen eralized anxiety disorder F41.1 [place] [address] [address] Feb, Gastritis without bleeding, unspecified chronicity, unspecified gastritis type K29.70 ; Hammer toe of right foot M20.41 and Other viral warts B07.8 [place] [address] [address] Feb, Bipolar 1 disorder, mixed F31.60 [place] [address] [address] Feb, Bipolar 1 disorder, mixed F31.60 [place] [address] [address] Feb, Bipolar 1 disorder, mixed F31.60 [place] [address] [address] Jan, Encounter for screening mammogram for br east cancer Z12.31 ; Other viral warts B07.8 and Allergic rhinitis J30.9 [place] [address] [address] Jan, Bipolar 1 disorder, mixed F31.60 [place] [address] [address] Jan, Bipolar 1 disorder, mixed F31.60 [place] [address] [address] Jan, [place] [address] [address] Jan, Bipolar 1 disorder, mixed F31.60 [place] [address] [address] Jan, Bipolar 1 disorder, mixed F31.60 [place] [address] [address] Jan, Allergic rhinitis J30.9 ; Hematuria R31. 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 [place] [address] [address] Dec, Bipolar 1 disorder, mixed F31.60 [facility] [address] [address] Dec, Bipolar 1 disorder, mixed F31.60 [place] [address] [address] Dec, Bipolar 1 disorder, mixed F31.60 [place] [address] [address] Dec, Low back pain M54.5 and Recurrent urinar y tract infection N39.0 [place] [address] [address] Nov, Bipolar 1 disorder, mixed F31.60 [place] [address] [address] Nov, Bipolar 1 disorder, mixed F31.60 [place] [address] [address] Nov, Bipolar 1 disorder, mixed F31.60 [place] [address] [address] Nov, Bipolar 1 disorder, mixed F31.60 [place] [address] [address] Nov, [place] [address] [address] Nov, Anesthesia of skin R20.0 ; Frequent UTI N39.0 ; Tobacco abuse Z72.0 and Colon cancer screening Z12.11 [place] [address] [address] Nov, Bipolar 1 disorder, mixed F31.60 [facility] [address] [address] October, Bipolar 1 disorder, mixed F31.60 [place] [address] [address] October, Bipolar 1 disorder, mixed F31.60 [place] [address] [address] October, Bipolar 1 disorder, mixed F31.60 [place] [address] [address] October, Bipolar 1 disorder, mixed F31.60 [place] [address] [address] October, Bipolar 1 disorder, mixed F31.60 [place] [address] [address] October, Cervicalgia M54.2 and Bipolar 1 disorder , mixed F31.60 [place] [address] [address] October, Hypertension I10 ; Hyperlipidemia, unspe cified hyperlipidemia type E78.5 and Family history of thyroid disease Z83.49 [place] [address] [address] October, [place] [address] [address] October, Hypertension I10 ; Hyperlipidemia, unspe cified hyperlipidemia type E78.5 and Family history of thyroid problem Z83.49 [place] [address] [address] October, Bipolar 1 disorder, mixed F31.60 [place] [address] [address] Sep, Bipolar 1 disorder, mixed F31.60 [place] [address] [address] Sep, Bipolar 1 disorder, mixed F31.60 [place] [address] [address] Sep, Bipolar 1 disorder, mixed F31.60 [place] [address] [address] Sep, History of colon polyps Z86.010 and Thomas tochezia K92.1 [place] [address] [address] Sep, Major depressive disorder, recurrent epi sode, moderate F33.1 [place] [address] [address] Sep, Bipolar 1 disorder, mixed F31.60 [place] [address] [address] Aug, Hot flashes due to menopause N95.1 [place] [address] [address] Aug, Bipolar 1 disorder, mixed F31.60 [place] [address] [address] Aug, [place] [address] [address] Aug, Bipolar 1 disorder, mixed F31.60 [place] [address] [address] Aug, Bipolar 1 disorder, mixed F31.60 [place] [address] [address] Aug, Hot flashes due to menopause N95.1 ; Cer vicalgia M54.2 and Ataxia R27.0 [place] [address] [address] Jul, Bipolar 1 disorder, mixed F31.60 [place] [address] [address] Jul, Bipolar 1 disorder, mixed F31.60 [place] [address] [address] Jul, Bipolar 1 disorder, mixed F31.60 [place] [address] [place] [id number] 13 Jul, 2016 Bipolar 1 disorder, mixed F31.60 [place] [address] [place] [address] 10 Jul, 2016 Bipolar 1 disorder, mixed F31.60 [place] [address] [place] [address] 08 Jul, 2016 Cervicalgia M54.2 ; Tremor R25.1 ; Heari ng abnormally acute, unspecified laterality H93.239 ; Alopecia L65.9 ; Encounter for immunization Z23 and Family history of thyroid disease Z83.49 [place] [address] [place] [address] Jul, Bipolar 1 disorder, mixed F31.60 [place] [address] [place] [address] Jun, [place] [address] [place] [address] Jun, Hearing disorder, unspecified laterality H93.299 [place] [address] [place] [address] Jun, Bipolar 1 disorder, mixed F31.60 [place] [address] [address] Jun, Bipolar 1 disorder, mixed F31.60 [place] [address] [address] Jun, Allergic rhinitis J30.9 [place] [address] [address] Jun, Bipolar 1 disorder, mixed F31.60 [place] [address] [place] [id number] Jun, Bipolar 1 disorder, mixed F31.60 [place] [address] [address] Jun, Allergic rhinitis J30.9 [place] [address] [address] Jun, Allergic rhinitis J30.9 [facility] [address] [address] Jun, Bipolar 1 disorder, mixed F31.60 [facility] [address] [address] May, Bipolar 1 disorder, mixed F31.60 [facility] [address] [address] May, Bipolar 1 disorder, mixed F31.60 [facility] [address] [address] May, [facility] [address] [address] May, Bipolar 1 disorder, mixed F31.60 [facility] [address] [address] May, Bipolar 1 disorder, mixed F31.60 [facility] [address] [address] May, [facility] [address] [address] May, [facility] [address] [address] May, [facility] [address] [address] May, Abdominal pain, unspecified location R10 .9 [facility] [address] [address] May, [facility] [address] [place] [address] Apr, Hematuria R31.9 ; Ataxia R27.0 and Heari ng loss, unspecified laterality H91.90 [facility] [address] [address] Apr, Bipolar 1 disorder, mixed F31.[address] [facility] [address] [facility] [id number] [address] [place] [address] Apr, Acute effusion of both middl e ears H65.193 [facility] [address] [address] 10 Apr, 2016 Hematuria R31.9 and Pyelonephritis N12 [place] [address] [address] Apr, [place] [address] [address] Mar, Bipolar 1 disorder, mixed F31.60 [place] [address] [address] Mar, [place] [address] [address] Mar, Bipolar 1 disorder, mixed F31.60 [place] [address] [address] Mar, Bipolar 1 disorder, mixed F31.60 [place] [address] [address] Mar, Encounter for immunization Z23 and Gastr itis without bleeding, unspecified chronicity, unspecified gastritis type K29.70 [place] [address] [address] Mar, Bipolar 1 disorder, mixed F31.60 and Gri ef F43.20 [place] [address] [address] Mar, Gastritis without bleeding, unspecified chronicity, unspecified gastritis type K29.70 [place] [address] [address] Mar, Bipolar 1 disorder, mixed F31.60 [place] [address] [address] Mar, Gastritis without bleeding, unspecified chronicity, unspecified gastritis type K29.70 [place] [address] [address] Mar, [place] [address] [place] [address] Feb, Bipolar 1 disorder, mixed F31.60 [place] [address] [address] Feb, Bipolar 1 disorder, mixed F31.60 and Gri ef F43.20 [place] [address] [address] Feb, Gastritis without bleeding, unspecified chronicity, unspecified gastritis type K29.70 [place] [address] [place] [address] 14 Feb, 2016 Bipolar 1 disorder, mixed F31.[address] [facility] [address] [facility] [id number] [address] [place] [address] 09 Feb, 2016 Gastroesophageal reflux dise ase, esophagitis presence not specified K21.9 [place] [address] [address] Jan, Bipolar 1 disorder, mixed F31.60 [place] [address] [address] Jan, Bipolar 1 disorder, mixed F31.60 and Uns teady gait R26.81 [place] [address] [address] Jan, Bipolar 1 disorder, mixed F31.60 [place] [address] [address] Jan, Bipolar 1 disorder, mixed F31.60 and 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.899 [place] [address] [address] Jan, Bipolar 1 disorder, mixed F31.60 [place] [address] [address] Jan, Bipolar 1 disorder, mixed F31.60 [place] [address] [address] Jan, Bipolar 1 disorder, mixed F31.60 ; Grief F43.20 and 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 [place] [address] [address] Jan, Bipolar 1 disorder, mixed F31.60 [place] [address] [address] Dec, [place] [address] [address] Dec, Bipolar 1 disorder, mixed F31.60 ; Vitam in D deficiency, unspecified E55.9 ; H/O allergic rhinitis Z87.09 ; Other chronic pain G89.29 and Dorsalgia, unspecified M54.9 [place] [address] [address] Dec, [place] [address] [address] Dec, Bipolar 1 disorder, mixed F31.60 [place] [address] [address] Dec, Major depressive disorder, recurrent epi sode, moderate F33.1 [place] [address] [address] Dec, Major depressive disorder, recurrent epi sode, moderate F33.1 [place] [address] [address] Nov, [place] [address] [address] Nov, Bipolar 1 disorder, mixed F31.60 [place] [address] [address] Nov, Major depressive disorder, recurrent epi sode, moderate F33.1 [place] [address] [address] Nov, Cervicalgia M54.2 ; Arthralgia of hip, u nspecified laterality M25.559 ; Allergic rhinitis J30.9 and Hormone replacement therapy Z79.890 [facility] [address] [facility] [id number] [address] [place] [address] Nov, Other seasonal allergic rhin itis J30.2 [place] [address] [address] October, Major depressive disorder, recurrent epi sode, moderate F33.1 [place] [address] [address] October, Major depressive disorder, recurrent epi sode, moderate F33.1 and Arthralgia of hip, unspecified laterality M25.559 [place] [address] [address] October, Grief F43.20 ; Hypertension I10 ; Hyperl ipidemia, unspecified hyperlipidemia type E78.5 ; Other chronic pain G89.29 and Allergic rhinitis, unspecified allergic rhinitis type J30.9 [place] [address] [address] October, Major depressive disorder, recurrent epi sode, moderate F33.1 [place] [address] [address] Sep, Major depressive disorder, recurrent epi sode, moderate F33.1 [place] [address] [address] Sep, [place] [address] [address] Sep, Major depressive disorder, recurrent epi sode, moderate F33.1 [place] [address] [address] Sep, Grief F43.20 [place] [address] [address] Aug, Major depressive disorder, recurrent epi sode, moderate F33.1 [place] [address] [address] Aug, Bipolar 1 disorder, mixed F31.60 [facility] [address] [address] Aug, Allergic rhinitis J30.9 ; Cervicalgia M5 4.2 and Low back pain M54.5 [place] [address] [address] Aug, Major depressive disorder, recurrent epi sode, moderate F33.[address] [facility] [address] [facility] [id number] [address] [place] [address] Aug, Sinusitis J32.9 and Tobacco dependence F17.200 [place] [address] [address] Aug, [place] [address] [address] Aug, Depressive disorder, not elsewhere class ified F32.9 ; Hormone replacement therapy Z79.[address] scan, head R93.0 [place] [address] [address] Aug, Major depressive disorder, recurrent epi sode, moderate F33.1 [place] [address] [address] Jul, Major depressive disorder, recurrent epi sode, moderate F33.1 [place] [address] [address] Jul, Abdominal pain R10.9 and Hypertension I1 0 [place] [address] [address] 08 Jul, 2015 [place] [address] [place] [id number] Jul, Major depressive disorder, recurrent epi sode, moderate F33.1 [facility] [address] [place] [id number] [place] [address] Jul, [facility] [address] [address] Jul, [facility] [address] [address] Jun, [facility] [address] [address] Jun, Depressive disorder, not elsewhere class ified F32.9 [facility] [address] [address] Jun, [facility] [address] [address] Jun, [facility] [address] [address] Jun, Arthralgia of hip, unspecified lateralit y M25.559 ; Bruising, spontaneous R23.3 and Night sweats R61 [facility] [address] [address] Jun, [facility] [address] [address] Jun, [facility] [address] [address] May, [facility] [address] [address] May, Myalgia M79.1 and Screening, lipid Z13.2 20 [facility] [address] [address] 10 Apr, 2015 Status post cervical spinal fusion Z98.1 ; Fibromyalgia M79.7 and Unsteady gait R26.81 [facility] [address] [address] Nov, [facility] [address] [address] Nov, [facility] [address] [place] [id number] [place] [address] October, [facility] [address] [place] [id number] [place] [address] October, [facility] [address] [place] [id number] [place] [address] October, [facility] [address] [place] [id number] [place] [address] October, [facility] [address] [place] [id number] [place] [address] October, [facility] [address] [place] [id number] [place] [address] October, Dysuria 788.1 ; Nausea 787.02 and Urinar y tract infection 599.0 [facility] [address] [place] [address] [id number] [place] [address] Sep, [facility] [address] [place] [id number] [place] [address] Sep, [facility] [address] [place] [id number] [place] [address] Aug, [facility] [address] [place] [id number] [place] [address] Aug, [facility] [address] [place] [id number] [place] [address] Aug, [facility] [address] [place] [id number] [place] [address] Aug, [facility] [address] [place] [id number] [place] [address] Aug, [facility] [address] [place] [id number] [place] [address] Aug, [facility] [address] [place] [address] [id number] [place] [address] Aug, [facility] [address] [place] [address] [id number] [place] [address] Aug, 2014 [facility] [place] [facility] [address] [facility] [id number] [facility] [place] [address] 19 Aug, 2014 [facility] [place] [facility] [address] [facility] [id number] [place] [address] 18 Aug, 2014 [facility] [place] [facility] [address] [facility] [id number] [facility] [place] [address] 18 Aug, 2014 [facility] [place] [facility] [address] [facility] [id number] [place] [address] 13 Aug, 2014 [facility] [place] [facility] [address] [facility] [id number] [place] [address] 13 Aug, 2014 [facility] [place] [facility] [address] [id number] [place] [address] Aug, [facility] [place] [facility] [address] [id number] [facility] [place] [address] Aug, [facility] [place] [facility] [address] [id number] [facility] [place] [address] 06 Aug, 2014 [facility] [place] [facility] [address] [facility] [id number] [facility] [place] [address] 06 Aug, 2014 [facility] [place] [facility] [address] [id number] [facility] [place] [address] 05 Aug, 2014 [facility] [place] [facility] [address] [id number] [place] [address] 05 Aug, 2014 [facility] [place] [facility] [address] [id number] [place] [address] 04 Aug, 2014 [facility] [place] [facility] [address] [facility] [id number] [facility] [place] [address] Aug, [facility] [place] [facility] [address] [facility] [id number] [place] [address] Aug, [facility] [place] [facility] [address] [facility] [id number] [place] [address] Jul, [facility] [place] [facility] [address] [id number] [facility] [place] [address] Jul, [facility] [place] [facility] [address] [id number] [place] [address] Jul, 2014 [facility] [place] [facility] [address] [id number] [place] [address] Jul, 2014 [facility] [place] [facility] [address] [id number] [place] [address] Jul, 2014 [facility] [place] [facility] [address] [id number] [place] [address] Jul, 2014 [facility] [place] [facility] [address] [id number] [place] [address] Jul, 2014 [facility] [place] [facility] [address] [id number] [place] [address] Jul, 2014 [facility] [place] [facility] [address] [id number] [place] [address] Jul, 2014 [facility] [place] [facility] [id number] [place] [address] Jul, 2014 [facility] [place] [facility] [id number] [place] [address] Jul, 2014 [facility] [place] [facility] [address] [id number] [place] [address] Jul, 2014 [facility] [place] [facility] [address] [id number] [place] [address] Jul, [facility] [place] [facility] [address] [id number] [place] [address] Jul, [facility] [place] [facility] [address] [id number] [place] [address] Jun, [facility] [place] [facility] [address] [id number] [place] [address] Jun, [facility] [place] [facility] [address] [id number] [place] [address] Jun, [facility] [place] [facility] [address] [id number] [place] [address] Jun, [facility] [place] [facility] [id number] [place] [address] Jun, [facility] [place] [facility] [address] [id number] [place] [address] Jun, [facility] [place] [facility] [address] [id number] [place] [address] May, [facility] [place] [facility] [address] [id number] [place] [address] May, [facility] [place] [facility] [address] [id number] [place] [address] May, [facility] [place] [facility] [address] [id number] [place] [address] May, [facility] [place] [facility] [address] [id number] [place] [address] May, [facility] [place] [facility] [address] [id number] [place] [address] May, [facility] [place] [facility] [address] [id number] [place] [address] Apr, [facility] [place] [facility] [address] [id number] [place] [address] Apr, [facility] [place] [facility] [address] [id number] [place] [address] Apr, [facility] [place] [facility] [address] [id number] [place] [address] Apr, [facility] [place] [facility] [address] [id number] [place] [address] Apr, [facility] [place] [facility] [address] [id number] [place] [address] Apr, [facility] [place] [facility] [address] [id number] [place] [address] Mar, [facility] [place] [facility] [address] [id number] [place] [address] Mar, [facility] [place] [facility] [address] [id number] [place] [address] Mar, [facility] [place] [facility] [address] [id number] [place] [address] Mar, 2013 [facility] [place] [facility] [address] [id number] [place] [address] Mar, 2013 [facility] [place] [facility] [address] [id number] [place] [address] Mar, 2013 [facility] [place] [facility] [address] [id number] [place] [address] Mar, 2013 [facility] [place] [facility] [address] [id number] [place] [address] Mar, 2013 [facility] [place] [facility] [address] [id number] [place] [address] Mar, [facility] [place] [facility] [address] [id number] [place] [address] Mar, [facility] [place] [facility] [address] [id number] [place] [address] Mar, [facility] [place] [facility] [address] [id number] [place] [address] Mar, [facility] [place] [facility] [address] [id number] [place] [address] 30 Feb, 2013 [facility] [place] [facility] [address] [id number] [place] [address] 29 Feb, 2013 [facility] [place] [facility] [address] [id number] [place] [address] 29 Feb, 2013 [facility] [place] [facility] [address] [id number] [place] [address] 23 Feb, 2013 [facility] [place] [facility] [address] [id number] [place] [address] 23 Feb, 2013 [facility] [place] [facility] [id number] [place] [address] 08 Feb, 2013 [facility] [place] [facility] [address] [facility] [id number] [place] [address] 08 Feb, 2013 [facility] [place] [facility] [address] [id number] [place] [address] Jan, [facility] [place] [facility] [address] [id number] [place] [address] Jan, [facility] [place] [facility] [address] [id number] [place] [address] Jan, [facility] [place] [facility] [address] [facility] [id number] [facility] [place] [address] Dec, [facility] [place] [facility] [address] [id number] [facility] [place] [address] Dec, [facility] [place] [facility] [address] [facility] [id number] [place] [address] Dec, [facility] [place] [facility] [address] [id number] [place] [address] Dec, [facility] [place] [facility] [address] [facility] [id number] [place] [address] Sep, [facility] [place] [facility] [address] [facility] [id number] [place] [address] Sep, [facility] [place] [facility] [address] [facility] [id number] [place] [address] Sep, [facility] [place] [facility] [address] [id number] [place] [address] Sep, [facility] [place] [facility] [address] [id number] [place] [address] Sep, [facility] [place] [facility] [address] [id number] [place] [address] Sep, [facility] [place] [facility] [address] [id number] [place] [address] Sep, [facility] [place] [facility] [address] [id number] [place] [address] Sep, [facility] [place] [facility] [address] [id number] [place] [address] Aug, [facility] [place] [facility] [address] [id number] [place] [address] Aug, [facility] [place] [facility] [address] [facility] [id number] [place] [address] May, [facility] [place] [facility] [address] [facility] [id number] [place] [address] May, [facility] [place] [facility] [address] [facility] [id number] [place] [address] Apr, [facility] [place] [facility] [address] [id number] [place] [address] Apr, [facility] [place] [facility] [address] [id number] [place] [address] Apr, [facility] [place] [facility] [address] [facility] [id number] [place] [address] Apr, [facility] [place] [facility] [address] [id number] [place] [address] Apr, [facility] [place] [facility] [address] [facility] [id number] [place] [address] Apr, [facility] [place] [facility] [address] [facility] [id number] [place] [address] May, [facility] [place] [facility] [address] [facility] [id number] [place] [address] 18 May, 2012 [facility] [place] [facility] [id number] [place] [address] 15 May, 2012 [facility] [place] [facility] [id number] [place] [address] 15 May, 2012 [facility] [place] [facility] [id number] [place] [address] 13 May, 2012 [facility] [place] [facility] [id number] [place] [address] 13 May, 2012 [facility] [place] [facility] [id number] [place] [address] Apr, [facility] [place] [facility] [address] [facility] [id number] [place] [address] Apr, [facility] [place] [facility] [address] [id number] [place] [address] Apr, [facility] [place] [facility] [id number] [place] [address] 08 Apr, 2012 [facility] [place] [facility] [address] [id number] [place] [address] Apr, [facility] [place] [facility] [address] [id number] [place] [address] Apr, [facility] [place] [facility] [id number] [place] [address] Apr, [facility] [place] [facility] [address] [id number] [place] [address] Apr, [facility] [place] [facility] [id number] [place] [address] Apr, [facility] [place] [facility] [id number] [place] [address] Apr, [facility] [place] [facility] [id number] [place] [place] [address] Mar, [facility] [id number] [place] [address] Mar, [facility] [id number] [place] [address] Mar, [facility] [id number] [place] [address] Mar, [facility] [id number] [place] [address] Mar, [facility] [id number] [place] [address] Mar, [facility] [id number] [place] [address] Mar, [facility] [id number] [place] [address] Mar, [facility] [id number] [place] [address] Mar, [facility] [id number] [place] [address] Feb, [facility] [address] [id number] [place] [address] 16 Feb, 2012 [facility] [address] [facility] [id number] [place] [address] Feb, [facility] [id number] [place] [address] Jan, [facility] [id number] [place] [address] Jan, [facility] [address] [facility] [id number] [place] [address] Jan, [facility] [id number] [place] [address] Jan, [facility] [id number] [place] [address] Jan, [facility] [id number] [place] [address] Jan, [facility] [id number] [place] [address] Jan, [facility] [id number] [place] [address] Jan, [facility] [id number] [place] [address] Jan, [facility] [id number] [place] [address] Jan, [facility] [id number] [place] [address] Dec, [facility] [address] [facility] [id number] [place] [address] Dec, [facility] [id number] [place] [address] Dec, [facility] [id number] [place] [address] Dec, [facility] [id number] [place] [address] Nov, [facility] [id number] [place] [address] Nov, [facility] [id number] [place] [address] Nov, [facility] [id number] [place] [address] October, [facility] [id number] [place] [address] October, [facility] [id number] [place] [address] October, [facility] [id number] [place] [address] October, [facility] [id number] [place] [address] October, [facility] [id number] [place] [address] October, [facility] [id number] [place] [address] Aug, [facility] [id number] [place] [address] Mar, [facility] [id number] [place] [address] Nov, [facility] [id number] [place] [address] May, [facility] [id number] [place] [address] May, [facility] [id number] [place] [address] Apr, [facility] [id number] [place] [address] Mar, [facility] [id number] [place] [address] Mar, IMMUNIZATIONS No Known Immunizations SOCIAL HISTORY Never Assessed REASON FOR VISIT Pt in for [facility] Pt c/o bloating and gas feels the Gas X helps but she is still bear ving a lot of bloating --KRISTINA Jones PLAN OF CARE Activity Details Follow Up 4 Weeks Reason:gastritis VITAL SIGNS Height 64 in 2018-09-02 Weight 167.4 lbs 2018-09-02 Heart Rate 88 bpm 2018-09-02 Respiratory Rate 20 2018-09-02 BMI 28.73 kg/m2 2018-09-02 Blood pressure systolic 152 mmHg 2018-09-02 Blood pressure diastolic 80 mmHg 2018-09-02 MEDICATIONS Medication Instructions Dosage Frequency Start Date End Date Duration S tatus Ibuprofen Active Mometasone Furoate 50 MCG/ACT Nasally twice a day 1 sprays in each nostril 12h 12 Apr, 2018 30 day(s) Active BuPROPion HCl ER (XL) 150 MG Orally Once a day in the morning 1 tab let Aug, 30 day(s) Active Probiotic Active Xyzal Allergy 24HR 5 MG Orally Once a day 1 tablet in the evening 24h 30 day(s) Active Pantoprazole Sodium 40 MG Orally Once a day TAKE 1 TABLET BY MÓNICA TH ONCE DAILY 24h 30 days Active Estradiol 2 MG Orally Once a day 1 tablet 24h Active Depakote ER 500 mg Orally at bedtime 2 tabs 30 days Active Voltaren 1 % Transdermal 4 times a day on neck Active HydrOXYzine HCl 10 mg Orally 3 times a day as needed 1 tablet 11 Feb, 2018 30 days Active Vitamin D3 2000 UNIT Orally Once a day as directed 24h 28 Dec, 2015 Active Fetzima 120 mg Orally Once a day TAKE 1 CAPSULE BY MOUTH DAILY 24h 30 days Active Baclofen 20 mg Orally 2 times a day 1 tablet with food or milk 12h 30 Active Doxylamine Succinate (Sleep) 25 MG Orally at bedtime 1 tablet Aug, 30 day(s) Active Gabapentin 100 MG by oral route 2 times a day 2 tabs in th e afternoon and three at night 12h Active RESULTS No Results PROCEDURES Procedure Date Ordered Result Body Site [facility] VISIT ESTABLISHED PATIENT September 02, 2018 INSTRUCTIONS MEDICATIONS ADMINISTERED No Known Medications [...]
--- OUTSIDE RECORDS SUMMARY | 2020-02-02 19:43 | XMS REPORT ---
Author Author Sydnie STEPHENSON Organization [facility] Address [address] [place] [address] Care Team Providers Care Unloader Name Role Phone DAVEY STEPHENSON Unavailable PROBLEMS Type Condition ICD9-CM Code EBN94-RS Code Onset Dates Condition S tatus SNOMED Code Problem Sensorineural hearing loss (SNHL) of both ears H90 .3 Active 744956583 Problem Night sweats R61 Active 7458596 0 Problem Bruising, spontaneous R23.3 Active 152895216 Problem Hypertension I10 Active 2194668 3 Problem Arthralgia of hip, unspecified laterality M25.559 Active 07757629 Problem Other chronic pain G89.29 Active 8 0005321 Problem Grief F43.20 Active 73901377 Problem Fibromyalgia M79.7 Active 5751623 7 Problem Hormone replacement therapy Z79.890 Ac tive 712341109 Problem Major depressive disorder, recurrent episode, moderate F33.1 Active 679694647 Problem Abnormal CT scan, head R93.0 Active 682521163 Problem Age-related osteoporosis without current pathological fracture M81.0 Active 09356049 Problem Hearing loss, unspecified laterality H91.90 Active 46922025 Problem Ataxia R27.0 Active 36575427 Problem History of colon polyps Z86.010 Active 624033059 Problem Allergic rhinitis J30.9 Active 61 486753 Problem Hematuria, unspecified type R31.9 Ac tive 31164598 Problem Generalized anxiety disorder F41.1 A ctive 13488623 Problem Imbalance R26.89 Active 260360916 Problem Hammer toe of right foot M20.41 Activ e 881413196 Problem Bladder spasm N32.89 Active 640092 006 Problem Acute left-sided low back pain with left-sided sciatica M54.42 Active 042393617 Problem Sciatica of left side M54.32 Active 04923703 Problem Sciatica of right side M54.31 Active 78238401 Problem Gastritis without bleeding, unspecified chronicity, unspecified gastritis type K29.70 Active 892899759 Problem Hearing loss, unspecified hearing loss type, uns pecified laterality H91.90 Active 60436666 Problem Hyperlipidemia, unspecified hyperlipidemia type E7 8.5 Active 63291676 Problem Bipolar 1 disorder, mixed F31.60 Acti ve 96767662 Problem Plantar wart of right foot B07.0 Act mitchell [id number] Problem Slow transit constipation K59.01 Acti ve 49633793 Problem Tobacco use disorder F17.200 Active 385284643 Problem Post menopausal syndrome N95.1 Activ e 155483200 ALLERGIES No Information ENCOUNTERS Encounter Location Date Diagnosis [place] [address] [address] Sep, [place] [address] [address] Aug, [place] [address] [address] Jul, [place] [address] [address] Jul, Bipolar 1 disorder, mixed F31.60 [place] [address] [address] Jul, [place] [address] [address] Jul, Tobacco use disorder F17.200 [place] [address] [address] 15 Jun, 2019 Bipolar 1 disorder, mixed F31.60 [place] [address] [address] Jun, Bipolar 1 disorder, mixed F31.60 ; Gener alized anxiety disorder F41.1 and Tobacco use disorder F17.200 [place] [address] [address] 06 Jun, 2019 Tobacco use disorder F17.200 [place] [address] [address] May, [facility] [address] [address] May, Compression fracture of L1 vertebra with routine healing, subsequent encounter S32.010D [facility] [address] [address] May, [facility] [address] [address] May, [facility] [address] [address] May, [facility] [address] [address] May, [facility] [address] [address] May, [facility] [address] [address] May, [facility] [address] [address] May, [facility] [address] [address] May, Bipolar 1 disorder, mixed F31.60 [place] [address] [address] May, Closed fracture of right upper extremity with routine healing, subsequent encounter S42.301D and Hearing loss, unspecified hearing loss type, unspecified laterality H91.90 [facility] [address] [address] May, [facility] [address] [address] Apr, Allergic rhinitis J30.9 ; Abdominal pain , unspecified location R10.9 and Seborrheic keratosis L82.1 [facility] [address] [address] Mar, Bipolar 1 disorder, mixed F31.60 [facility] [address] [address] Mar, Bipolar 1 disorder, mixed F31.60 ; Gener alized anxiety disorder F41.1 and Tobacco use disorder F17.200 [place] [address] [address] Feb, Excessive gas R14.3 ; Other chronic pain G89.29 ; Encounter for immunization Z23 ; Hyperlipidemia, unspecified hyperlipidemia type E78.5 ; Bipolar 1 disorder, mixed F31.60 and 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 [place] [address] [address] Feb, Bipolar 1 disorder, mixed F31.60 [place] [address] [address] Jan, Sciatica of right side M54.31 ; Low back pain M54.5 and Major depressive disorder, recurrent episode, moderate F33.1 [place] [address] [address] Jan, Bipolar 1 disorder, mixed F31.60 [place] [address] [address] Dec, Normal pelvic exam Z01.419 [place] [address] [address] Dec, Bipolar 1 disorder, mixed F31.60 [place] [address] [address] Nov, Bipolar 1 disorder, mixed F31.60 [place] [address] [address] Nov, Bipolar 1 disorder, mixed F31.60 ; Gener alized anxiety disorder F41.1 ; Tobacco use disorder F17.200 and 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 [place] [address] [address] Nov, [place] [address] [address] Nov, Bipolar 1 disorder, mixed F31.60 [place] [address] [address] October, Bipolar 1 disorder, mixed F31.60 [place] [address] [address] October, Bipolar 1 disorder, mixed F31.60 [place] [address] [address] October, [place] [address] [address] October, Bipolar 1 disorder, mixed F31.60 ; Gener alized anxiety disorder F41.1 and Tobacco use disorder F17.200 [place] [address] [address] Sep, [place] [address] [address] Sep, Encounter for Medicare annual wellness e xam Z00.00 ; Major depressive disorder, recurrent episode, moderate F33.1 ; Allergic rhinitis J30.9 ; Bipolar 1 disorder, mixed F31.60 ; Fibromyalgia M79.7 ; Hyperlipidemia, unspecified hyperlipidemia type E78.5 ; Hormone replacement therapy Z79.890 ; Encounter for screening for lung cancer Z12.2 and Tobacco use disorder F17.200 [place] [address] [address] Sep, Bipolar 1 disorder, mixed F31.60 [place] [address] [address] Sep, Other chronic pain G89.29 ; Hyperlipidem ia, unspecified hyperlipidemia type E78.5 ; Breast cancer screening Z12.31 and Post menopausal syndrome N95.1 [place] [address] [address] Sep, Bipolar 1 disorder, mixed F31.60 [place] [address] [address] 15 Sep, 2018 Bipolar 1 disorder, mixed F31.60 ; Gener alized anxiety disorder F41.1 and Tobacco use disorder F17.200 [place] [address] [address] Sep, Gastritis without bleeding, unspecified chronicity, unspecified gastritis type K29.70 [place] [address] [address] Sep, Exercise counseling Z71.82 [place] [address] [address] Aug, Exercise counseling Z71.82 [place] [address] [address] Aug, Bipolar 1 disorder, mixed F31.60 [place] [address] [address] Aug, Exercise counseling Z71.82 [place] [address] [address] Aug, Bipolar 1 disorder, mixed F31.60 [place] [address] [address] Aug, Gastritis without bleeding, unspecified chronicity, unspecified gastritis type K29.70 ; Tobacco abuse Z72.0 ; Generalized anxiety disorder F41.1 and Weight gain R63.5 [place] [address] [address] Aug, Bipolar 1 disorder, mixed F31.60 ; Gener alized anxiety disorder F41.1 and Tobacco use disorder F17.200 [place] [address] [address] Jul, Bipolar 1 disorder, mixed F31.60 [place] [address] [address] Jul, [place] [address] [address] Jul, Bipolar 1 disorder, mixed F31.60 [place] [address] [address] 11 Jul, 2018 Allergic rhinitis J30.9 ; Major depressi ve disorder, recurrent episode, moderate F33.1 and Tobacco dependence F17.200 [place] [address] [address] Jun, [place] [address] [address] Jun, [place] [address] [address] Jun, Bipolar 1 disorder, mixed F31.60 [place] [address] [address] Jun, Bipolar 1 disorder, mixed F31.60 [place] [address] [address] Jun, Bipolar 1 disorder, mixed F31.60 [place] [address] [address] Jun, Generalized anxiety disorder F41.1 ; Tob acco abuse Z72.0 and Major depressive disorder, recurrent episode, moderate F33.1 [place] [address] [address] May, Bipolar 1 disorder, mixed F31.60 [place] [address] [address] May, Bipolar 1 disorder, mixed F31.60 and Gen eralized anxiety disorder F41.1 [place] [address] [address] May, Bipolar 1 disorder, mixed F31.60 [place] [address] [address] May, Allergic rhinitis J30.9 [place] [address] [address] May, Bipolar 1 disorder, mixed F31.60 [facility] [address] [address] May, [facility] [address] [address] Apr, Allergic rhinitis J30.9 ; Dysfunction of both eustachian tubes H69.83 ; History of bladder surgery Z98.890 and Cervicalgia M54.2 [place] [address] [address] Mar, Bipolar 1 disorder, mixed F31.60 [place] [address] [address] Mar, [place] [address] [address] Mar, Slow transit constipation K59.01 ; Encou nter for immunization Z23 and Generalized anxiety disorder F41.1 [place] [address] [address] Feb, Bipolar 1 disorder, mixed F31.60 [place] [address] [address] Feb, Allergic rhinitis J30.9 [place] [address] [address] 24 Feb, 2018 Bipolar 1 disorder, mixed F31.60 [place] [address] [address] 20 Feb, 2018 Bipolar 1 disorder, mixed F31.60 and Gen eralized anxiety disorder F41.1 [place] [address] [address] 13 Feb, 2018 Bipolar 1 disorder, mixed F31.60 [place] [address] [address] 11 Feb, 2018 Allergic rhinitis J30.9 [facility] [address] [address] 05 Feb, 2018 [place] [address] [address] Jan, Bipolar 1 disorder, mixed F31.60 [place] [address] [place] [address] Jan, Low back pain M54.5 ; Hyperlipidemia, un specified hyperlipidemia type E78.5 and Bipolar 1 disorder, mixed F31.60 [place] [address] [address] Jan, Bipolar 1 disorder, mixed F31.60 [place] [address] [address] Jan, Bipolar 1 disorder, mixed F31.60 [place] [address] [address] Jan, Bipolar 1 disorder, mixed F31.60 [place] [address] [address] Jan, Bipolar 1 disorder, mixed F31.60 [place] [address] [address] Dec, Bipolar 1 disorder, mixed F31.60 ; Gener alized anxiety disorder F41.1 and Other terminologist (current) drug therapy Z79.899 [place] [address] [address] Dec, Other terminologist (current) drug therapy Z 79.899 [place] [address] [address] Dec, Bipolar 1 disorder, mixed F31.60 [place] [address] [address] Dec, Bipolar 1 disorder, mixed F31.60 [place] [address] [address] Nov, Bipolar 1 disorder, mixed F31.60 [place] [address] [address] Nov, Bipolar 1 disorder, mixed F31.60 [facility] [address] [address] Nov, Bipolar 1 disorder, mixed F31.60 [facility] [address] [address] Nov, Allergic rhinitis J30.9 [facility] [address] [address] Nov, Allergic rhinitis J30.9 [facility] [address] [address] Nov, [place] [address] [address] Nov, Bipolar 1 disorder, mixed F31.60 [place] [address] [address] Nov, Fibromyalgia M79.7 and Allergic rhinitis J30.9 [place] [address] [address] October, Bipolar 1 disorder, mixed F31.60 [facility] [address] [address] October, Acute nasopharyngitis J00 [facility] [place] [address] [address] October, Bitten or stung by nonvenomo us insect and other nonvenomous arthropods, initial encounter W57.XXXA and Insect bite (nonvenomous) of abdominal wall, initial encounter S30.861A [place] [address] [address] October, Insect bite (nonvenomous) of abdominal w all, initial encounter S30.861A ; Bitten or stung by nonvenomous insect and other nonvenomous arthropods, initial encounter W57.XXXA ; Allergic rhinitis J30.9 and Low back pain M54.5 [place] [address] [address] October, Bipolar 1 disorder, mixed F31.60 [facility] [address] [address] October, [facility] [address] [address] October, [facility] [address] [address] October, Bipolar 1 disorder, mixed F31.60 [place] [address] [address] Sep, Bipolar 1 disorder, mixed F31.60 [place] [address] [address] Sep, Other chronic pain G89.29 [place] [address] [address] Sep, [place] [address] [address] Sep, Bipolar 1 disorder, mixed F31.60 [place] [address] [address] Sep, Allergic rhinitis J30.9 and Sciatica of left side M54.32 [place] [address] [address] Sep, Bipolar 1 disorder, mixed F31.60 [place] [address] [address] Sep, Bipolar 1 disorder, mixed F31.60 and Gen eralized anxiety disorder F41.1 [place] [address] [address] Aug, [place] [address] [address] Aug, Bipolar 1 disorder, mixed F31.60 [facility] [address] [address] Aug, Bipolar 1 disorder, mixed F31.60 [facility] [address] [address] Aug, [facility] [address] [address] Aug, Generalized anxiety disorder F41.1 [facility] [address] [address] Aug, Bipolar 1 disorder, mixed F31.60 [facility] [address] [address] Aug, Plantar wart of right foot B07.0 [facility] [address] [address] Aug, Bipolar 1 disorder, mixed F31.60 [place] [address] [address] Jul, Bipolar 1 disorder, mixed F31.60 [place] [address] [address] Jul, [facility] [address] [address] Jul, Bipolar 1 disorder, mixed F31.60 [facility] [address] [address] Jul, Generalized anxiety disorder F41.1 [facility] [address] [address] Jul, Bipolar 1 disorder, mixed F31.60 [facility] [address] [address] Jul, Acute left-sided low back pain with left -sided sciatica M54.42 [facility] [address] [address] 05 Jul, 2017 Coccydynia M53.3 [facility] [address] [address] Jun, Bipolar 1 disorder, mixed F31.60 [facility] [address] [place] [id number] [place] [address] Jun, Acute nasopharyngitis J00 [place] [address] [address] Jun, Bipolar 1 disorder, mixed F31.60 [place] [address] [address] Jun, Fibromyalgia M79.7 [place] [address] [address] Jun, Bipolar 1 disorder, mixed F31.60 [place] [address] [address] Jun, Fibromyalgia M79.7 and Bipolar 1 disorde r, mixed F31.60 [place] [address] [address] May, Bipolar 1 disorder, mixed F31.60 ; Gener alized anxiety disorder F41.1 and 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 [place] [address] [address] May, Bipolar 1 disorder, mixed F31.60 [facility] [address] [place] [id number] [place] [address] May, Cough R05 and Body aches R52 [facility] [address] [address] May, Bladder spasm N32.89 and Acu te cystitis without hematuria N30.00 [place] [address] [address] May, Bipolar 1 disorder, mixed F31.60 [facility] [address] [address] Apr, [place] [address] [address] Apr, Major depressive disorder, recurrent epi sode, moderate F33.1 and Encounter for immunization Z23 [place] [address] [place] [address] Apr, Bipolar 1 disorder, mixed F31.60 [facility] [address] [place] [address] Apr, Bipolar 1 disorder, mixed F31.60 [place] [address] [place] [address] Apr, Bipolar 1 disorder, mixed F31.60 [place] [address] [address] Apr, Yeast vaginitis B37.3 [place] [address] [address] Apr, Bipolar 1 disorder, mixed F31.60 [facility] [address] [facility] [id number] [place] [address] Apr, Cellulitis L03.[address] for immunization Z23 [place] [address] [address] Apr, Bipolar 1 disorder, mixed F31.60 [place] [address] [place] [address] Mar, Bipolar 1 disorder, mixed F31.60 [place] [address] [place] [address] Mar, Bipolar 1 disorder, mixed F31.60 [facility] [address] [address] Mar, Imbalance R26.89 and Encounter for immun ization Z23 [place] [address] [place] [address] Mar, Generalized anxiety disorder F41.1 [place] [address] [address] Mar, Bipolar 1 disorder, mixed F31.60 [place] [address] [address] Mar, Generalized anxiety disorder F41.1 [place] [address] [address] Mar, Bipolar 1 disorder, mixed F31.60 [place] [address] [address] Mar, Bipolar 1 disorder, mixed F31.60 [place] [address] [address] Feb, Bipolar 1 disorder, mixed F31.60 [place] [address] [address] Feb, Bipolar 1 disorder, mixed F31.60 and Gen eralized anxiety disorder F41.1 [place] [address] [address] Feb, Gastritis without bleeding, unspecified chronicity, unspecified gastritis type K29.70 ; Hammer toe of right foot M20.41 and Other viral warts B07.8 [place] [address] [address] Feb, Bipolar 1 disorder, mixed F31.60 [place] [address] [address] Feb, Bipolar 1 disorder, mixed F31.60 [place] [address] [address] 05 Feb, 2017 Bipolar 1 disorder, mixed F31.60 [place] [address] [address] Jan, Encounter for screening mammogram for br east cancer Z12.31 ; Other viral warts B07.8 and Allergic rhinitis J30.9 [place] [address] [address] Jan, Bipolar 1 disorder, mixed F31.60 [place] [address] [address] Jan, Bipolar 1 disorder, mixed F31.60 [place] [address] [address] Jan, [facility] [address] [address] Jan, Bipolar 1 disorder, mixed F31.60 [place] [address] [address] Jan, Bipolar 1 disorder, mixed F31.60 [place] [address] [address] Jan, Allergic rhinitis J30.9 ; Hematuria R31. 9 and Colon cancer screening Z12.11 [place] [address] [address] Dec, Bipolar 1 disorder, mixed F31.60 [place] [address] [address] Dec, Bipolar 1 disorder, mixed F31.60 ; Gener alized anxiety disorder F41.1 and 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 [place] [address] [address] Dec, Bipolar 1 disorder, mixed F31.60 [place] [address] [address] Dec, Bipolar 1 disorder, mixed F31.60 [place] [address] [address] Dec, Bipolar 1 disorder, mixed F31.60 [place] [address] [address] Dec, Low back pain M54.5 and Recurrent urinar y tract infection N39.0 [place] [address] [address] Nov, Bipolar 1 disorder, mixed F31.60 [place] [address] [address] Nov, Bipolar 1 disorder, mixed F31.60 [place] [address] [address] Nov, Bipolar 1 disorder, mixed F31.60 [place] [address] [address] Nov, Bipolar 1 disorder, mixed F31.60 [place] [address] [address] Nov, [place] [address] [address] Nov, Anesthesia of skin R20.0 ; Frequent UTI N39.0 ; Tobacco abuse Z72.0 and Colon cancer screening Z12.11 [place] [address] [address] Nov, Bipolar 1 disorder, mixed F31.60 [place] [address] [address] October, Bipolar 1 disorder, mixed F31.60 [place] [address] [address] October, Bipolar 1 disorder, mixed F31.60 [place] [address] [address] October, Bipolar 1 disorder, mixed F31.60 [place] [address] [address] October, Bipolar 1 disorder, mixed F31.60 [place] [address] [address] October, Bipolar 1 disorder, mixed F31.60 [place] [address] [address] October, Cervicalgia M54.2 and Bipolar 1 disorder , mixed F31.60 [place] [address] [address] October, Hypertension I10 ; Hyperlipidemia, unspe cified hyperlipidemia type E78.5 and Family history of thyroid disease Z83.49 [place] [address] [address] October, [place] [address] [address] October, Hypertension I10 ; Hyperlipidemia, unspe cified hyperlipidemia type E78.5 and Family history of thyroid problem Z83.49 [place] [address] [address] October, Bipolar 1 disorder, mixed F31.60 [place] [address] [place] [address] Sep, Bipolar 1 disorder, mixed F31.60 [place] [address] [address] Sep, Bipolar 1 disorder, mixed F31.60 [place] [address] [address] Sep, Bipolar 1 disorder, mixed F31.60 [place] [address] [address] Sep, History of colon polyps Z86.010 and Thomas tochezia K92.1 [place] [address] [address] Sep, Major depressive disorder, recurrent epi sode, moderate F33.1 [place] [address] [address] Sep, Bipolar 1 disorder, mixed F31.60 [place] [address] [address] Aug, Hot flashes due to menopause N95.1 [place] [address] [address] Aug, Bipolar 1 disorder, mixed F31.60 [place] [address] [address] Aug, [place] [address] [address] Aug, Bipolar 1 disorder, mixed F31.60 [place] [address] [place] [id number] Aug, Bipolar 1 disorder, mixed F31.60 [place] [address] [place] [id number] Aug, Hot flashes due to menopause N95.1 ; Cer vicalgia M54.2 and Ataxia R27.0 [place] [address] [address] Jul, Bipolar 1 disorder, mixed F31.60 [place] [address] [address] Jul, Bipolar 1 disorder, mixed F31.60 [place] [address] [address] Jul, Bipolar 1 disorder, mixed F31.60 [place] [address] [address] Jul, Bipolar 1 disorder, mixed F31.60 [place] [address] [address] Jul, Bipolar 1 disorder, mixed F31.60 [place] [address] [address] Jul, Cervicalgia M54.2 ; Tremor R25.1 ; Heari ng abnormally acute, unspecified laterality H93.239 ; Alopecia L65.9 ; Encounter for immunization Z23 and Family history of thyroid disease Z83.49 [place] [address] [address] Jul, Bipolar 1 disorder, mixed F31.60 [place] [address] [address] Jun, [place] [id number] [address] Jun, Hearing disorder, unspecified laterality H93.299 [facility] [address] [address] Jun, Bipolar 1 disorder, mixed F31.60 [facility] [address] [address] Jun, Bipolar 1 disorder, mixed F31.60 [facility] [address] [address] Jun, Allergic rhinitis J30.9 [facility] [address] [address] Jun, Bipolar 1 disorder, mixed F31.60 [facility] [address] [address] Jun, Bipolar 1 disorder, mixed F31.60 [facility] [address] [address] Jun, Allergic rhinitis J30.9 [facility] [address] [address] Jun, Allergic rhinitis J30.9 [facility] [address] [address] Jun, Bipolar 1 disorder, mixed F31.60 [facility] [address] [address] May, Bipolar 1 disorder, mixed F31.60 [facility] [address] [address] May, Bipolar 1 disorder, mixed F31.60 [facility] [address] [address] May, [facility] [address] [address] May, Bipolar 1 disorder, mixed F31.60 [facility] [address] [address] May, Bipolar 1 disorder, mixed F31.60 [facility] [address] [address] May, [facility] [address] [address] May, [facility] [address] [address] May, [facility] [address] [address] May, Abdominal pain, unspecified location R10 .9 [facility] [address] [address] May, [facility] [address] [address] Apr, Hematuria R31.9 ; Ataxia R27.0 and Heari ng loss, unspecified laterality H91.90 [facility] [address] [address] Apr, Bipolar 1 disorder, mixed F31.60 [facility] [address] [facility] [id number] [address] [place] [address] Apr, Acute effusion of both middl e ears H65.193 [facility] [address] [address] Apr, Hematuria R31.9 and Pyelonephritis N12 [facility] [address] [address] Apr, [facility] [address] [address] Mar, Bipolar 1 disorder, mixed F31.60 [facility] [address] [address] Mar, [facility] [address] [address] Mar, Bipolar 1 disorder, mixed F31.60 [place] [address] [address] Mar, Bipolar 1 disorder, mixed F31.60 [place] [address] [place] [address] Mar, Encounter for immunization Z23 and Gastr itis without bleeding, unspecified chronicity, unspecified gastritis type K29.70 [place] [address] [place] [address] Mar, Bipolar 1 disorder, mixed F31.60 and Gri ef F43.20 [place] [address] [place] [address] Mar, Gastritis without bleeding, unspecified chronicity, unspecified gastritis type K29.70 [place] [address] [address] Mar, Bipolar 1 disorder, mixed F31.60 [place] [address] [address] Mar, Gastritis without bleeding, unspecified chronicity, unspecified gastritis type K29.70 [place] [address] [place] [address] Mar, [place] [address] [place] [address] Feb, Bipolar 1 disorder, mixed F31.60 [place] [address] [address] Feb, Bipolar 1 disorder, mixed F31.60 and Gri ef F43.20 [place] [address] [address] Feb, Gastritis without bleeding, unspecified chronicity, unspecified gastritis type K29.70 [place] [address] [place] [id number] 14 Feb, 2016 Bipolar 1 disorder, mixed F31.60 [facility] [address] [facility] [id number] [address] [place] [address] Feb, Gastroesophageal reflux dise ase, esophagitis presence not specified K21.9 [place] [address] Jan, Bipolar 1 disorder, mixed F31.60 [place] [address] Jan, Bipolar 1 disorder, mixed F31.60 and Uns teady gait R26.81 [place] [address] [place] [address] Jan, Bipolar 1 disorder, mixed F31.60 [place] [address] [place] [address] Jan, Bipolar 1 disorder, mixed F31.60 and Oth er terminologist (current) drug therapy Z79.899 [place] [address] [address] Jan, Bipolar 1 disorder, mixed F31.60 [place] [address] [address] Jan, Bipolar 1 disorder, mixed F31.60 [place] [address] [place] [address] Jan, Bipolar 1 disorder, mixed F31.60 ; Grief F43.20 and Other terminologist (current) drug therapy Z79.899 [place] [address] [place] [address] Jan, Bipolar 1 disorder, mixed F31.60 [place] [address] [address] Dec, [place] [address] [place] [address] Dec, Bipolar 1 disorder, mixed F31.60 ; Vitam in D deficiency, unspecified E55.9 ; H/O allergic rhinitis Z87.09 ; Other chronic pain G89.29 and Dorsalgia, unspecified M54.9 [place] [address] [place] [id number] [place] [address] Dec, [place] [address] [address] Dec, Bipolar 1 disorder, mixed F31.60 [place] [address] [address] Dec, Major depressive disorder, recurrent epi sode, moderate F33.1 [place] [address] [address] Dec, Major depressive disorder, recurrent epi sode, moderate F33.1 [place] [address] [address] Nov, [place] [address] [address] Nov, Bipolar 1 disorder, mixed F31.60 [place] [address] [address] Nov, Major depressive disorder, recurrent epi sode, moderate F33.1 [place] [address] [address] Nov, Cervicalgia M54.2 ; Arthralgia of hip, u nspecified laterality M25.559 ; Allergic rhinitis J30.9 and Hormone replacement therapy Z79.890 [facility] [address] [facility] [id number] [address] [place] [address] Nov, Other seasonal allergic rhin itis J30.2 [facility] [address] [address] October, Major depressive disorder, recurrent epi sode, moderate F33.1 [place] [address] [address] October, Major depressive disorder, recurrent epi sode, moderate F33.1 and Arthralgia of hip, unspecified laterality M25.559 [place] [address] [address] October, Grief F43.20 ; Hypertension I10 ; Hyperl ipidemia, unspecified hyperlipidemia type E78.5 ; Other chronic pain G89.29 and Allergic rhinitis, unspecified allergic rhinitis type J30.9 [place] [address] [address] October, Major depressive disorder, recurrent epi sode, moderate F33.1 [place] [address] [place] [address] Sep, Major depressive disorder, recurrent epi sode, moderate F33.1 [place] [address] [address] Sep, [place] [address] [address] Sep, Major depressive disorder, recurrent epi sode, moderate F33.1 [place] [address] [address] Sep, Grief F43.20 [place] [address] [address] Aug, Major depressive disorder, recurrent epi sode, moderate F33.1 [place] [address] [address] Aug, Bipolar 1 disorder, mixed F31.[address] [address] Aug, Allergic rhinitis J30.9 ; Cervicalgia M5 4.2 and Low back pain M54.[address] [address] Aug, Major depressive disorder, recurrent epi sode, moderate F33.1 [facility] N [facility] [id number] [address] [place] [address] Aug, Sinusitis J32.9 and Tobacco dependence F17.[address] [address] Aug, [facility] [address] [address] Aug, Depressive disorder, not elsewhere class ified F32.9 ; Hormone replacement therapy Z79.[address] scan, head R93.0 [facility] [address] [address] 08 Aug, 2015 Major depressive disorder, recurrent epi sode, moderate F33.1 [facility] [address] [address] Jul, Major depressive disorder, recurrent epi sode, moderate F33.1 [place] [address] [address] Jul, Abdominal pain R10.9 and Hypertension I1 0 [place] [address] [address] 08 Jul, 2015 [facility] [address] [address] Jul, Major depressive disorder, recurrent epi sode, moderate F33.1 [place] [address] [address] Jul, [facility] [address] [address] Jul, [place] [address] [address] Jun, [facility] [address] [address] Jun, Depressive disorder, not elsewhere class ified F32.9 [place] [address] [address] Jun, [facility] [address] [address] Jun, [facility] [address] [address] 20 Ra, 2016 Arthralgia of hip, unspecified lateralit y M25.559 ; Bruising, spontaneous R23.3 and Night sweats R61 [facility] [address] [address] Jun, [facility] [address] [address] Jun, [place] [address] [address] May, [facility] [address] [address] May, Myalgia M79.1 and Screening, lipid Z13.2 20 [place] [address] [address] Apr, Status post cervical spinal fusion Z98.1 ; Fibromyalgia M79.7 and Unsteady gait R26.81 [place] [address] [address] Nov, [place] [address] [address] Nov, [place] [address] [address] October, [facility] [address] [address] October, [facility] [address] [address] October, [facility] [address] [address] October, [facility] [address] [address] October, [facility] [address] [address] October, Dysuria 788.1 ; Nausea 787.02 and Urinar y tract infection 599.0 [place] [address] [address] 14 Sep, 2014 [facility] [place] [facility] [address] [facility] [id number] [facility] [place] [address] 13 Sep, 2014 [facility] [place] [facility] [address] [facility] [id number] [facility] [place] [address] 25 Aug, 2014 [facility] [place] [facility] [address] [id number] [facility] [place] [address] 25 Aug, 2014 [facility] [place] [facility] [address] [facility] [id number] [place] [address] 24 Aug, 2014 [facility] [place] [facility] [address] [facility] [id number] [facility] [place] [address] 24 Aug, 2014 [facility] [place] [facility] [address] [facility] [id number] [place] [address] 23 Aug, 2014 [facility] [place] [facility] [address] [id number] [place] [address] 19 Aug, 2014 [facility] [place] [facility] [address] [id number] [facility] [place] [address] 19 Aug, 2014 [facility] [place] [facility] [address] [facility] [id number] [facility] [place] [address] 19 Aug, 2014 [facility] [place] [facility] [address] [id number] [place] [address] 19 Aug, 2014 [facility] [place] [facility] [address] [id number] [place] [address] 18 Aug, 2014 [facility] [place] [facility] [address] [id number] [place] [address] 18 Aug, 2014 [facility] [place] [facility] [address] [facility] [id number] [facility] [place] [address] 13 Aug, 2014 [facility] [place] [facility] [address] [id number] [place] [address] 13 Aug, 2014 [facility] [place] [facility] [address] [id number] [place] [address] 11 Aug, 2014 [facility] [place] [facility] [address] [id number] [place] [address] 11 Aug, 2014 [facility] [place] [facility] [address] [id number] [place] [address] Aug, 2014 [facility] [place] [facility] [address] [facility] [id number] [place] [address] Aug, [facility] [place] [facility] [address] [id number] [place] [address] Aug, 2014 [facility] [place] [facility] [address] [id number] [place] [address] Aug, [facility] [place] [facility] [address] [id number] [place] [address] Aug, 2014 [facility] [place] [facility] [address] [id number] [place] [address] Aug, [facility] [place] [facility] [address] [id number] [place] [address] Aug, [facility] [place] [facility] [address] [id number] [place] [address] Jul, 2014 [facility] [place] [facility] [address] [id number] [place] [address] Jul, 2014 [facility] [place] [facility] [address] [id number] [place] [address] Jul, [facility] [place] [facility] [address] [id number] [place] [address] Jul, 2014 [facility] [place] [facility] [address] [id number] [place] [address] Jul, 2014 [facility] [place] [facility] [address] [id number] [place] [address] Jul, 2014 [facility] [place] [facility] [address] [id number] [place] [address] Jul, [facility] [place] [facility] [address] [id number] [place] [address] Jul, 2014 [facility] [place] [facility] [address] [id number] [place] [address] Jul, 2014 [facility] [place] [facility] [address] [id number] [place] [address] Jul, 2014 [facility] [place] [facility] [address] [id number] [place] [address] Jul, [facility] [place] [facility] [address] [id number] [place] [address] Jul, [facility] [place] [facility] [address] [id number] [place] [address] Jul, [facility] [place] [facility] [address] [id number] [place] [address] Jul, [facility] [place] [facility] [address] [id number] [place] [address] Jun, [facility] [place] [facility] [address] [id number] [place] [address] Jun, [facility] [place] [facility] [address] [id number] [place] [address] Jun, [facility] [place] [facility] [address] [id number] [place] [address] Jun, [facility] [place] [facility] [address] [id number] [place] [address] Jun, [facility] [place] [facility] [address] [id number] [place] [address] Jun, [facility] [place] [facility] [address] [id number] [place] [address] May, [facility] [place] [facility] [address] [id number] [place] [address] May, [facility] [place] [facility] [address] [id number] [place] [address] May, [facility] [place] [facility] [address] [id number] [place] [address] May, [facility] [place] [facility] [address] [id number] [place] [address] May, [facility] [place] [facility] [address] [id number] [place] [address] May, [facility] [place] [facility] [address] [id number] [place] [address] Apr, [facility] [place] [facility] [address] [id number] [place] [address] Apr, [facility] [place] [facility] [address] [id number] [place] [address] Apr, [facility] [place] [facility] [address] [id number] [place] [address] Apr, [facility] [place] [facility] [address] [id number] [place] [address] Apr, [facility] [place] [facility] [address] [id number] [place] [address] Apr, [facility] [place] [facility] [address] [id number] [place] [address] Mar, [facility] [place] [facility] [address] [id number] [place] [address] Mar, [facility] [place] [facility] [address] [id number] [place] [address] Mar, [facility] [place] [facility] [address] [id number] [place] [address] Mar, [facility] [place] [facility] [address] [id number] [place] [address] Mar, [facility] [place] [facility] [address] [id number] [place] [address] Mar, [facility] [place] [facility] [address] [id number] [place] [address] Mar, [facility] [place] [facility] [address] [id number] [place] [address] Mar, [facility] [place] [facility] [address] [id number] [place] [address] Mar, [facility] [place] [facility] [address] [id number] [place] [address] Mar, [facility] [place] [facility] [address] [id number] [place] [address] Mar, [facility] [place] [facility] [address] [facility] [id number] [place] [address] Mar, [facility] [place] [facility] [address] [facility] [id number] [place] [address] 30 Feb, 2014 [facility] [place] [facility] [address] [id number] [place] [address] 29 Feb, 2013 [facility] [place] [facility] [address] [id number] [place] [address] 29 Feb, 2014 [facility] [place] [facility] [address] [facility] [id number] [facility] [place] [address] Feb, 2013 [facility] [place] [facility] [address] [id number] [place] [address] Feb, [facility] [place] [facility] [address] [id number] [place] [address] 08 Feb, 2014 [facility] [place] [facility] [address] [id number] [place] [address] Feb, [facility] [place] [facility] [address] [id number] [place] [address] Jan, [facility] [place] [facility] [address] [id number] [place] [address] Jan, [facility] [place] [facility] [address] [id number] [place] [address] Jan, [facility] [place] [facility] [address] [id number] [place] [address] Dec, [facility] [place] [facility] [address] [id number] [place] [address] Dec, [facility] [place] [facility] [address] [id number] [place] [address] Dec, [facility] [place] [facility] [address] [id number] [place] [address] Dec, [facility] [place] [facility] [address] [id number] [place] [address] Sep, [facility] [place] [facility] [address] [id number] [place] [address] Sep, [facility] [place] [facility] [address] [id number] [facility] [place] [address] Sep, [facility] [place] [facility] [address] [id number] [place] [address] Sep, [facility] [place] [facility] [address] [id number] [place] [address] Sep, [facility] [place] [facility] [address] [id number] [place] [address] Sep, [facility] [place] [facility] [address] [id number] [place] [address] Sep, [facility] [place] [facility] [address] [id number] [place] [address] Sep, [facility] [place] [facility] [address] [id number] [place] [address] Aug, [facility] [place] [facility] [address] [id number] [place] [address] Aug, [facility] [place] [facility] [address] [id number] [place] [address] May, [facility] [place] [facility] [address] [id number] [place] [address] May, [facility] [place] [facility] [address] [id number] [place] [address] Apr, [facility] [place] [facility] [address] [id number] [place] [address] Apr, [facility] [place] [facility] [address] [id number] [place] [address] Apr, [facility] [place] [facility] [address] [id number] [place] [address] Apr, [facility] [place] [facility] [address] [id number] [place] [address] Apr, [facility] [place] [facility] [address] [id number] [place] [address] Apr, [facility] [place] [facility] [address] [id number] [place] [address] 18 May, 2012 [facility] [place] [facility] [address] [id number] [place] [address] 18 May, 2012 [facility] [id number] [place] [address] 15 May, 2012 [facility] [id number] [place] [address] 15 May, 2012 [facility] [address] [id number] [place] [address] 13 May, 2012 [facility] [id number] [place] [address] 13 May, 2012 [facility] [id number] [place] [address] 13 Apr, 2012 [facility] [id number] [place] [address] 13 Apr, 2012 [facility] [id number] [place] [address] 08 Apr, 2012 [facility] [id number] [place] [address] Apr, [facility] [id number] [place] [address] 08 Apr, 2012 [facility] [address] [id number] [place] [address] Apr, [facility] [id number] [place] [address] Apr, [facility] [id number] [place] [address] Apr, [facility] [id number] [place] [address] Apr, [facility] [address] [id number] [place] [address] Apr, [facility] [id number] [place] [address] Mar, [facility] [address] [facility] [id number] [place] [address] Mar, [facility] [id number] [place] [address] Mar, [facility] [id number] [place] [address] Mar, [facility] [id number] [place] [address] Mar, [facility] [address] [facility] [id number] [place] [address] Mar, [facility] [address] [id number] [place] [address] Mar, [facility] [id number] [place] [address] Mar, [facility] [id number] [place] [address] Mar, [facility] [address] [id number] [place] [address] Feb, [facility] [id number] [place] [address] 16 Feb, 2012 [facility] [id number] [place] [address] Feb, [facility] [id number] [place] [address] Jan, [facility] [id number] [place] [address] Jan, [facility] [id number] [place] [address] Jan, [facility] [address] [facility] [id number] [place] [address] Jan, [facility] [id number] [place] [address] Jan, [facility] [id number] [facility] [place] [address] Jan, [facility] [address] [id number] [facility] [place] [address] Jan, [facility] [address] [facility] [id number] [facility] [place] [address] Jan, [facility] [address] [id number] [facility] [place] [address] Jan, [facility] [address] [id number] [facility] [place] [address] Jan, [facility] [address] [facility] [id number] [facility] [place] [address] Dec, [facility] [address] [id number] [place] [address] Dec, [facility] [id number] [place] [address] Dec, [facility] [id number] [place] [address] Dec, [facility] [address] [id number] [place] [id number] Nov, [facility] [id number] [place] [address] Nov, [facility] [id number] [place] [address] Nov, [facility] [id number] [place] [address] October, [facility] [address] [facility] [id number] [place] [address] October, [facility] [id number] [place] [address] October, [facility] [id number] [place] [address] October, [facility] [id number] [place] [address] October, [facility] [id number] [place] [address] October, [facility] [id number] [place] [address] Aug, [facility] [id number] [place] [address] Mar, [facility] [address] [address] Nov, [facility] [address] [address] May, [facility] [address] [address] May, [facility] [address] [address] Apr, [facility] [address] [address] Mar, [facility] [id number] [place] [address] Mar, IMMUNIZATIONS No Known Immunizations SOCIAL HISTORY [...]
--- OUTSIDE RECORDS SUMMARY | 2020-02-02 19:44 | XMS REPORT ---
Author Author Sydnie HANCOCK [facility] Address [address] [place] [address] Care Team Providers Care Manager Oracle Database Name Role Phone NAHOMY HANCOCK Unavailable PROBLEMS Type Condition ICD9-CM Code WVA69-JH Code Onset Dates Condition S tatus SNOMED Code Problem Sensorineural hearing loss (SNHL) of both ears H90 .3 Active 212125197 Problem Night sweats R61 Active 9281965 0 Problem Bruising, spontaneous R23.3 Active 208019015 Problem Hypertension I10 Active 5802920 3 Problem Arthralgia of hip, unspecified laterality M25.559 Active 77606297 Problem Other chronic pain G89.29 Active 8 5803243 Problem Grief F43.20 Active 69738200 Problem Fibromyalgia M79.7 Active 4972621 7 Problem Hormone replacement therapy Z79.890 Ac tive 469355749 Problem Major depressive disorder, recurrent episode, moderate F33.1 Active 747027396 Problem Abnormal CT scan, head R93.0 Active 612342794 Problem Age-related osteoporosis without current pathological fracture M81.0 Active 61400905 Problem Hearing loss, unspecified laterality H91.90 Active 59054947 Problem Ataxia R27.0 Active 44139502 Problem History of colon polyps Z86.010 Active 247083434 Problem Allergic rhinitis J30.9 Active 61 678297 Problem Hematuria, unspecified type R31.9 Ac tive 19338129 Problem Generalized anxiety disorder F41.1 A ctive 66483951 Problem Imbalance R26.89 Active 279401264 Problem Hammer toe of right foot M20.41 Activ e 101389123 Problem Bladder spasm N32.89 Active 729269 006 Problem Acute left-sided low back pain with left-sided sciatica M54.42 Active 678690021 Problem Sciatica of left side M54.32 Active 29396447 Problem Sciatica of right side M54.31 Active 81025799 Problem Gastritis without bleeding, unspecified chronicity, unspecified gastritis type K29.70 Active 283304102 Problem Hearing loss, unspecified hearing loss type, uns pecified laterality H91.90 Active 82112779 Problem Hyperlipidemia, unspecified hyperlipidemia type E7 8.5 Active 39425632 Problem Bipolar 1 disorder, mixed F31.60 Acti ve 15754434 Problem Plantar wart of right foot B07.0 Act mitchell [id number] Problem Slow transit constipation K59.01 Acti ve 31196986 Problem Tobacco use disorder F17.200 Active 122457850 Problem Post menopausal syndrome N95.1 Activ e 051043394 ALLERGIES No Information ENCOUNTERS Encounter Location Date Diagnosis [place] [address] [address] Sep, [place] [address] [address] Aug, [place] [address] [address] Jul, Bipolar 1 disorder, mixed F31.60 [place] [address] [address] Jul, [place] [address] [address] Jul, Tobacco use disorder F17.200 [place] [address] [address] Jun, Bipolar 1 disorder, mixed F31.60 [place] [address] [address] Jun, Bipolar 1 disorder, mixed F31.60 ; Gener alized anxiety disorder F41.1 and Tobacco use disorder F17.200 [place] [address] [address] Jun, Tobacco use disorder F17.200 [place] [address] [address] May, [place] [address] [address] May, Compression fracture of L1 vertebra with routine healing, subsequent encounter S32.010D [facility] [address] [address] May, [facility] [address] [address] May, [facility] [address] [address] May, [facility] [address] [address] May, [facility] [address] [address] May, [facility] [address] [address] May, [facility] [address] [address] May, [facility] [address] [address] May, Bipolar 1 disorder, mixed F31.60 [place] [address] [address] May, Closed fracture of right upper extremity with routine healing, subsequent encounter S42.301D and Hearing loss, unspecified hearing loss type, unspecified laterality H91.90 [place] [address] [address] May, [facility] [address] [address] Apr, Allergic rhinitis J30.9 ; Abdominal pain , unspecified location R10.9 and Seborrheic keratosis L82.1 [place] [address] [address] Mar, Bipolar 1 disorder, mixed F31.60 [facility] [address] [address] Mar, Bipolar 1 disorder, mixed F31.60 ; Gener alized anxiety disorder F41.1 and Tobacco use disorder F17.200 [place] [address] [address] Feb, Excessive gas R14.3 ; Other chronic pain G89.29 ; Encounter for immunization Z23 ; Hyperlipidemia, unspecified hyperlipidemia type E78.5 ; Bipolar 1 disorder, mixed F31.60 and Other mcfp (current) drug therapy Z79.899 [place] [address] [address] Feb, Bipolar 1 disorder, mixed F31.60 [place] [address] [address] Jan, Sciatica of right side M54.31 ; Low back pain M54.5 and Major depressive disorder, recurrent episode, moderate F33.1 [place] [address] [address] Jan, Bipolar 1 disorder, mixed F31.60 [place] [address] [address] Dec, Normal pelvic exam Z01.419 [place] [address] [address] Dec, Bipolar 1 disorder, mixed F31.60 [place] [address] [address] Nov, Bipolar 1 disorder, mixed F31.60 [place] [address] [address] Nov, Bipolar 1 disorder, mixed F31.60 ; Gener alized anxiety disorder F41.1 ; Tobacco use disorder F17.200 and Other mcfp (current) drug therapy Z79.899 [place] [address] [address] Nov, [place] [address] [address] Nov, Bipolar 1 disorder, mixed F31.60 [place] [address] [address] October, Bipolar 1 disorder, mixed F31.60 [place] [address] [address] October, Bipolar 1 disorder, mixed F31.60 [place] [address] [address] October, [place] [address] [address] October, Bipolar 1 disorder, mixed F31.60 ; Gener alized anxiety disorder F41.1 and Tobacco use disorder F17.200 [place] [address] [address] Sep, [place] [address] [address] Sep, Encounter for Medicare annual wellness e xam Z00.00 ; Major depressive disorder, recurrent episode, moderate F33.1 ; Allergic rhinitis J30.9 ; Bipolar 1 disorder, mixed F31.60 ; Fibromyalgia M79.7 ; Hyperlipidemia, unspecified hyperlipidemia type E78.5 ; Hormone replacement therapy Z79.890 ; Encounter for screening for lung cancer Z12.2 and Tobacco use disorder F17.200 [place] [address] [address] Sep, Bipolar 1 disorder, mixed F31.60 [place] [address] [address] Sep, Other chronic pain G89.29 ; Hyperlipidem ia, unspecified hyperlipidemia type E78.5 ; Breast cancer screening Z12.31 and Post menopausal syndrome N95.1 [place] [address] [address] Sep, Bipolar 1 disorder, mixed F31.60 [place] [address] [address] Sep, Bipolar 1 disorder, mixed F31.60 ; Gener alized anxiety disorder F41.1 and Tobacco use disorder F17.200 [place] [address] [address] Sep, Gastritis without bleeding, unspecified chronicity, unspecified gastritis type K29.70 [place] [address] [address] 08 Sep, 2018 Exercise counseling Z71.82 [place] [address] [address] Aug, Exercise counseling Z71.82 [place] [address] [address] Aug, Bipolar 1 disorder, mixed F31.60 [place] [address] [address] Aug, Exercise counseling Z71.82 [place] [address] [address] Aug, Bipolar 1 disorder, mixed F31.60 [place] [address] [address] Aug, Gastritis without bleeding, unspecified chronicity, unspecified gastritis type K29.70 ; Tobacco abuse Z72.0 ; Generalized anxiety disorder F41.1 and Weight gain R63.5 [place] [address] [address] Aug, Bipolar 1 disorder, mixed F31.60 ; Gener alized anxiety disorder F41.1 and Tobacco use disorder F17.200 [place] [address] [address] Jul, Bipolar 1 disorder, mixed F31.60 [place] [address] [address] Jul, [place] [address] [address] Jul, Bipolar 1 disorder, mixed F31.60 [place] [address] [address] Jul, Allergic rhinitis J30.9 ; Major depressi ve disorder, recurrent episode, moderate F33.1 and Tobacco dependence F17.200 [place] [address] [address] Jun, [place] [address] [address] Jun, [place] [address] [address] Jun, Bipolar 1 disorder, mixed F31.60 [place] [address] [address] Jun, Bipolar 1 disorder, mixed F31.60 [place] [address] [address] Jun, Bipolar 1 disorder, mixed F31.60 [place] [address] [address] Jun, Generalized anxiety disorder F41.1 ; Tob acco abuse Z72.0 and Major depressive disorder, recurrent episode, moderate F33.1 [place] [address] [address] May, Bipolar 1 disorder, mixed F31.60 [place] [address] [address] May, Bipolar 1 disorder, mixed F31.60 and Gen eralized anxiety disorder F41.1 [place] [address] [address] May, Bipolar 1 disorder, mixed F31.60 [place] [address] [address] May, Allergic rhinitis J30.9 [place] [address] [address] May, Bipolar 1 disorder, mixed F31.60 [place] [address] [address] May, [facility] [address] [address] Apr, Allergic rhinitis J30.9 ; Dysfunction of both eustachian tubes H69.83 ; History of bladder surgery Z98.890 and Cervicalgia M54.2 [facility] [address] [address] Mar, Bipolar 1 disorder, mixed F31.60 [facility] [address] [address] Mar, [place] [address] [address] Mar, Slow transit constipation K59.01 ; Encou nter for immunization Z23 and Generalized anxiety disorder F41.1 [place] [address] [address] Feb, Bipolar 1 disorder, mixed F31.60 [place] [address] [address] Feb, Allergic rhinitis J30.9 [place] [address] [address] 24 Feb, 2018 Bipolar 1 disorder, mixed F31.60 [place] [address] [address] Feb, Bipolar 1 disorder, mixed F31.60 and Gen eralized anxiety disorder F41.1 [facility] [address] [address] 13 Feb, 2018 Bipolar 1 disorder, mixed F31.60 [facility] [address] [address] 11 Feb, 2018 Allergic rhinitis J30.9 [facility] [address] [address] 05 Feb, 2018 [facility] [address] [address] Jan, Bipolar 1 disorder, mixed F31.60 [facility] [address] [address] Jan, Low back pain M54.5 ; Hyperlipidemia, un specified hyperlipidemia type E78.5 and Bipolar 1 disorder, mixed F31.60 [facility] [address] [address] Jan, Bipolar 1 disorder, mixed F31.60 [facility] [address] [address] Jan, Bipolar 1 disorder, mixed F31.60 [facility] [address] [address] Jan, Bipolar 1 disorder, mixed F31.60 [facility] [address] [address] Jan, Bipolar 1 disorder, mixed F31.60 [place] [address] [address] Dec, Bipolar 1 disorder, mixed F31.60 ; Gener alized anxiety disorder F41.1 and Other terminal carman (current) drug therapy Z79.899 [place] [address] [address] Dec, Other mcfp (current) drug therapy Z 79.899 [facility] [address] [address] Dec, Bipolar 1 disorder, mixed F31.60 [facility] [address] [address] Dec, Bipolar 1 disorder, mixed F31.60 [facility] [address] [address] Nov, Bipolar 1 disorder, mixed F31.60 [facility] [address] [address] Nov, Bipolar 1 disorder, mixed F31.60 [facility] [address] [place] [address] Nov, Bipolar 1 disorder, mixed F31.60 [facility] [address] [address] Nov, Allergic rhinitis J30.9 [facility] [address] [address] Nov, Allergic rhinitis J30.9 [facility] [address] [address] Nov, [facility] [address] [address] Nov, Bipolar 1 disorder, mixed F31.60 [place] [address] [address] Nov, Fibromyalgia M79.7 and Allergic rhinitis J30.9 [place] [address] [address] October, Bipolar 1 disorder, mixed F31.60 [facility] [address] [place] [id number] [place] [address] October, Acute nasopharyngitis J00 [facility] [address] [address] October, Bitten or stung by nonvenomo us insect and other nonvenomous arthropods, initial encounter W57.XXXA and Insect bite (nonvenomous) of abdominal wall, initial encounter S30.861A [place] [address] [address] October, Insect bite (nonvenomous) of abdominal w all, initial encounter S30.861A ; Bitten or stung by nonvenomous insect and other nonvenomous arthropods, initial encounter W57.XXXA ; Allergic rhinitis J30.9 and Low back pain M54.5 [place] [address] [address] October, Bipolar 1 disorder, mixed F31.60 [place] [address] [address] October, [facility] [address] [address] October, [facility] [address] [address] October, Bipolar 1 disorder, mixed F31.60 [facility] [address] [address] Sep, Bipolar 1 disorder, mixed F31.60 [facility] [address] [address] Sep, Other chronic pain G89.29 [facility] [address] [address] Sep, [facility] [address] [address] Sep, Bipolar 1 disorder, mixed F31.60 [facility] [address] [address] Sep, Allergic rhinitis J30.9 and Sciatica of left side M54.32 [place] [address] [address] Sep, Bipolar 1 disorder, mixed F31.60 [facility] [address] [address] Sep, Bipolar 1 disorder, mixed F31.60 and Gen eralized anxiety disorder F41.1 [facility] [address] [address] Aug, [facility] [address] [address] Aug, Bipolar 1 disorder, mixed F31.60 [facility] [address] [address] Aug, Bipolar 1 disorder, mixed F31.60 [facility] [address] [address] Aug, [facility] [address] [address] Aug, Generalized anxiety disorder F41.1 [facility] [address] [address] Aug, Bipolar 1 disorder, mixed F31.60 [facility] [address] [address] Aug, Plantar wart of right foot B07.0 [facility] [address] [address] Aug, Bipolar 1 disorder, mixed F31.60 [place] [address] [address] Jul, Bipolar 1 disorder, mixed F31.60 [place] [address] [address] Jul, [facility] [address] [address] Jul, Bipolar 1 disorder, mixed F31.60 [place] [address] [address] Jul, Generalized anxiety disorder F41.1 [facility] [address] [address] Jul, Bipolar 1 disorder, mixed F31.60 [facility] [address] [address] Jul, Acute left-sided low back pain with left -sided sciatica M54.42 [place] [address] [address] 05 Jul, 2017 Coccydynia M53.3 [facility] [address] [place] [id number] [place] [address] Jun, Bipolar 1 disorder, mixed F31.60 [facility] [address] [facility] [id number] [address] [place] [address] 15 Jun, 2017 Acute nasopharyngitis J00 [place] [address] [address] Jun, Bipolar 1 disorder, mixed F31.60 [place] [address] [address] Jun, Fibromyalgia M79.7 [place] [address] [address] Jun, Bipolar 1 disorder, mixed F31.60 [place] [address] [address] Jun, Fibromyalgia M79.7 and Bipolar 1 disorde r, mixed F31.60 [place] [address] [address] May, Bipolar 1 disorder, mixed F31.60 ; Gener alized anxiety disorder F41.1 and Other terminal carman (current) drug therapy Z79.899 [place] [address] [address] May, Bipolar 1 disorder, mixed F31.60 [facility] [address] [place], [place] [id number] [address] [place] [address] 14 May, 2017 Cough R05 and Body aches R52 [facility] [address] [address] 10 May, 2017 Bladder spasm N32.89 and Acu te cystitis without hematuria N30.00 [place] [address] [address] 07 May, 2017 Bipolar 1 disorder, mixed F31.60 [place] [address] [address] 30 Apr, 2017 [place] [address] [address] Apr, Major depressive disorder, recurrent epi sode, moderate F33.1 and Encounter for immunization Z23 [place] [address] [address] Apr, Bipolar 1 disorder, mixed F31.60 [facility] [address] [address] Apr, Bipolar 1 disorder, mixed F31.60 [place] [address] [address] Apr, Bipolar 1 disorder, mixed F31.60 [facility] [address] [address] 13 Apr, 2017 Yeast vaginitis B37.3 [place] [address] [address] 09 Apr, 2017 Bipolar 1 disorder, mixed F31.60 [facility] [address] [facility] [id number] [address] [place] [address] 07 Apr, 2017 Cellulitis L03.[address] for immunization Z23 [place] [address] [address] Apr, Bipolar 1 disorder, mixed F31.60 [place] [address] [address] Mar, Bipolar 1 disorder, mixed F31.60 [place] [address] [address] Mar, Bipolar 1 disorder, mixed F31.60 [place] [address] [address] Mar, Imbalance R26.89 and Encounter for immun ization Z23 [place] [address] [address] Mar, Generalized anxiety disorder F41.1 [place] [address] [address] Mar, Bipolar 1 disorder, mixed F31.60 [place] [address] [address] Mar, Generalized anxiety disorder F41.1 [place] [address] [address] Mar, Bipolar 1 disorder, mixed F31.60 [place] [address] [address] Mar, Bipolar 1 disorder, mixed F31.60 [place] [address] [address] Feb, Bipolar 1 disorder, mixed F31.60 [place] [address] [address] Feb, Bipolar 1 disorder, mixed F31.60 and Gen eralized anxiety disorder F41.1 [place] [address] [address] Feb, Gastritis without bleeding, unspecified chronicity, unspecified gastritis type K29.70 ; Hammer toe of right foot M20.41 and Other viral warts B07.8 [place] [address] [address] Feb, Bipolar 1 disorder, mixed F31.60 [place] [address] [address] Feb, Bipolar 1 disorder, mixed F31.60 [place] [address] [address] Feb, Bipolar 1 disorder, mixed F31.60 [place] [address] [address] Jan, Encounter for screening mammogram for br east cancer Z12.31 ; Other viral warts B07.8 and Allergic rhinitis J30.9 [place] [address] [address] Jan, Bipolar 1 disorder, mixed F31.60 [place] [address] [address] Jan, Bipolar 1 disorder, mixed F31.60 [place] [address] [address] Jan, [place] [address] [address] Jan, Bipolar 1 disorder, mixed F31.60 [place] [address] [address] Jan, Bipolar 1 disorder, mixed F31.60 [place] [address] [address] Jan, Allergic rhinitis J30.9 ; Hematuria R31. 9 and Colon cancer screening Z12.11 [place] [address] [address] Dec, Bipolar 1 disorder, mixed F31.60 [place] [address] [address] Dec, Bipolar 1 disorder, mixed F31.60 ; Gener alized anxiety disorder F41.1 and Other mcfp (current) drug therapy Z79.899 [place] [address] [address] Dec, Bipolar 1 disorder, mixed F31.60 [place] [address] [address] Dec, Bipolar 1 disorder, mixed F31.60 [place] [address] [address] Dec, Bipolar 1 disorder, mixed F31.60 [place] [address] [address] Dec, Low back pain M54.5 and Recurrent urinar y tract infection N39.0 [place] [address] [address] Nov, Bipolar 1 disorder, mixed F31.60 [place] [address] [address] Nov, Bipolar 1 disorder, mixed F31.60 [place] [address] [address] Nov, Bipolar 1 disorder, mixed F31.60 [place] [address] [address] Nov, Bipolar 1 disorder, mixed F31.60 [place] [address] [address] Nov, [place] [address] [place] [address] Nov, Anesthesia of skin R20.0 ; Frequent UTI N39.0 ; Tobacco abuse Z72.0 and Colon cancer screening Z12.11 [place] [address] [address] Nov, Bipolar 1 disorder, mixed F31.60 [place] [address] [address] October, Bipolar 1 disorder, mixed F31.60 [place] [address] [address] October, Bipolar 1 disorder, mixed F31.60 [place] [address] [address] October, Bipolar 1 disorder, mixed F31.60 [place] [address] [address] October, Bipolar 1 disorder, mixed F31.60 [place] [address] [address] October, Bipolar 1 disorder, mixed F31.60 [place] [address] [address] October, Cervicalgia M54.2 and Bipolar 1 disorder , mixed F31.60 [place] [address] [address] October, Hypertension I10 ; Hyperlipidemia, unspe cified hyperlipidemia type E78.5 and Family history of thyroid disease Z83.49 [place] [address] [address] October, [place] [address] [address] October, Hypertension I10 ; Hyperlipidemia, unspe cified hyperlipidemia type E78.5 and Family history of thyroid problem Z83.49 [place] [address] [address] October, Bipolar 1 disorder, mixed F31.60 [place] [address] [address] Sep, Bipolar 1 disorder, mixed F31.60 [place] [address] [address] Sep, Bipolar 1 disorder, mixed F31.60 [place] [address] [address] Sep, Bipolar 1 disorder, mixed F31.60 [place] [address] [address] Sep, History of colon polyps Z86.010 and Thomas tochezia K92.1 [place] [address] [address] Sep, Major depressive disorder, recurrent epi sode, moderate F33.1 [place] [address] [address] Sep, Bipolar 1 disorder, mixed F31.60 [place] [address] [address] Aug, Hot flashes due to menopause N95.1 [place] [address] [address] Aug, Bipolar 1 disorder, mixed F31.60 [place] [address] [address] Aug, [place] [address] [address] Aug, Bipolar 1 disorder, mixed F31.60 [place] [address] [address] Aug, Bipolar 1 disorder, mixed F31.60 [place] [address] [address] Aug, Hot flashes due to menopause N95.1 ; Cer vicalgia M54.2 and Ataxia R27.0 [place] [address] [address] Jul, Bipolar 1 disorder, mixed F31.60 [place] [address] [address] Jul, Bipolar 1 disorder, mixed F31.60 [place] [address] [address] Jul, Bipolar 1 disorder, mixed F31.60 [place] [address] [address] Jul, Bipolar 1 disorder, mixed F31.60 [place] [address] [address] Jul, Bipolar 1 disorder, mixed F31.60 [place] [address] [address] Jul, Cervicalgia M54.2 ; Tremor R25.1 ; Heari ng abnormally acute, unspecified laterality H93.239 ; Alopecia L65.9 ; Encounter for immunization Z23 and Family history of thyroid disease Z83.49 [place] [address] [address] Jul, Bipolar 1 disorder, mixed F31.60 [place] [address] [address] Jun, [place] [address] [address] Jun, Hearing disorder, unspecified laterality H93.299 [facility] [address] [address] Jun, Bipolar 1 disorder, mixed F31.60 [facility] [address] [address] Jun, Bipolar 1 disorder, mixed F31.60 [facility] [address] [address] Jun, Allergic rhinitis J30.9 [facility] [address] [address] Jun, Bipolar 1 disorder, mixed F31.60 [facility] [address] [address] Jun, Bipolar 1 disorder, mixed F31.60 [facility] [address] [address] Jun, Allergic rhinitis J30.9 [facility] [address] [address] Jun, Allergic rhinitis J30.9 [facility] [address] [address] Jun, Bipolar 1 disorder, mixed F31.60 [facility] [address] [address] May, Bipolar 1 disorder, mixed F31.60 [facility] [address] [address] May, Bipolar 1 disorder, mixed F31.60 [facility] [address] [place] [id number] [place] [address] May, [facility] [address] [address] May, Bipolar 1 disorder, mixed F31.60 [facility] [address] [place] [id number] [place] [address] May, Bipolar 1 disorder, mixed F31.60 [facility] [address] [address] May, [facility] [address] [address] May, [facility] [address] [address] May, [facility] [address] [address] May, Abdominal pain, unspecified location R10 .9 [facility] [address] [address] May, [place] [address] [address] Apr, Hematuria R31.9 ; Ataxia R27.0 and Heari ng loss, unspecified laterality H91.90 [place] [address] [address] Apr, Bipolar 1 disorder, mixed F31.60 [facility] [address] [facility] [id number] [address] [place] [address] Apr, Acute effusion of both middl e ears H65.193 [place] [address] [address] Apr, Hematuria R31.9 and Pyelonephritis N12 [facility] [address] [address] Apr, [facility] [address] [address] Mar, Bipolar 1 disorder, mixed F31.60 [facility] [address] [address] Mar, [facility] [address] [address] Mar, Bipolar 1 disorder, mixed F31.60 [facility] [address] [address] Mar, Bipolar 1 disorder, mixed F31.60 [place] [address] [place] [address] Mar, Encounter for immunization Z23 and Gastr itis without bleeding, unspecified chronicity, unspecified gastritis type K29.70 [place] [address] [address] Mar, Bipolar 1 disorder, mixed F31.60 and Gri ef F43.20 [place] [address] [address] Mar, Gastritis without bleeding, unspecified chronicity, unspecified gastritis type K29.70 [place] [address] [address] Mar, Bipolar 1 disorder, mixed F31.60 [place] [address] [address] Mar, Gastritis without bleeding, unspecified chronicity, unspecified gastritis type K29.70 [place] [address] [address] Mar, [place] [address] [address] Feb, Bipolar 1 disorder, mixed F31.60 [place] [address] [address] Feb, Bipolar 1 disorder, mixed F31.60 and Gri ef F43.20 [place] [address] [address] Feb, Gastritis without bleeding, unspecified chronicity, unspecified gastritis type K29.70 [place] [address] [address] 14 Feb, 2016 Bipolar 1 disorder, mixed F31.60 [facility] [address] [facility] [id number] [address] [place] [address] 09 Feb, 2016 Gastroesophageal reflux dise ase, esophagitis presence not specified K21.9 [place] [address] [address] Jan, Bipolar 1 disorder, mixed F31.60 [place] [address] [address] Jan, Bipolar 1 disorder, mixed F31.60 and Uns teady gait R26.81 [place] [address] [address] Jan, Bipolar 1 disorder, mixed F31.60 [place] [address] [address] Jan, Bipolar 1 disorder, mixed F31.60 and Oth er mcfp (current) drug therapy Z79.899 [place] [address] [address] Jan, Bipolar 1 disorder, mixed F31.60 [place] [address] [address] Jan, Bipolar 1 disorder, mixed F31.60 [place] [address] [address] Jan, Bipolar 1 disorder, mixed F31.60 ; Grief F43.20 and Other mcfp (current) drug therapy Z79.899 [place] [address] [address] Jan, Bipolar 1 disorder, mixed F31.60 [place] [address] [address] Dec, [place] [address] [address] Dec, Bipolar 1 disorder, mixed F31.60 ; Vitam in D deficiency, unspecified E55.9 ; H/O allergic rhinitis Z87.09 ; Other chronic pain G89.29 and Dorsalgia, unspecified M54.9 [place] [address] [address] Dec, [place] [address] [address] Dec, Bipolar 1 disorder, mixed F31.60 [place] [address] [address] Dec, Major depressive disorder, recurrent epi sode, moderate F33.1 [place] [address] [address] Dec, Major depressive disorder, recurrent epi sode, moderate F33.1 [place] [address] [address] Nov, [place] [address] [address] Nov, Bipolar 1 disorder, mixed F31.60 [place] [address] [address] Nov, Major depressive disorder, recurrent epi sode, moderate F33.1 [place] [address] [address] Nov, Cervicalgia M54.2 ; Arthralgia of hip, u nspecified laterality M25.559 ; Allergic rhinitis J30.9 and Hormone replacement therapy Z79.890 [facility] [address] [facility] [id number] [address] [place] [address] Nov, Other seasonal allergic rhin itis J30.2 [place] [address] [address] October, Major depressive disorder, recurrent epi sode, moderate F33.1 [place] [address] [address] October, Major depressive disorder, recurrent epi sode, moderate F33.1 and Arthralgia of hip, unspecified laterality M25.559 [place] [address] [address] October, Grief F43.20 ; Hypertension I10 ; Hyperl ipidemia, unspecified hyperlipidemia type E78.5 ; Other chronic pain G89.29 and Allergic rhinitis, unspecified allergic rhinitis type J30.9 [place] [address] [address] October, Major depressive disorder, recurrent epi sode, moderate F33.1 [place] [address] [address] Sep, Major depressive disorder, recurrent epi sode, moderate F33.1 [place] [address] [address] Sep, [place] [address] [address] Sep, Major depressive disorder, recurrent epi sode, moderate F33.1 [place] [address] [address] Sep, Grief F43.[address] [address] Aug, Major depressive disorder, recurrent epi sode, moderate F33.1 [place] [address] [address] Aug, Bipolar 1 disorder, mixed F31.[address] [address] Aug, Allergic rhinitis J30.9 ; Cervicalgia M5 4.2 and Low back pain M54.5 [place] [address] [address] Aug, Major depressive disorder, recurrent epi sode, moderate F33.1 [facility] [place] [address] [facility] [id number] [address] [place] [address] Aug, Sinusitis J32.9 and Tobacco dependence F17.200 [place] [address] [address] Aug, [place] [address] [address] Aug, Depressive disorder, not elsewhere class ified F32.9 ; Hormone replacement therapy Z79.[address] scan, head R93.0 [place] [address] [place] [id number] Aug, Major depressive disorder, recurrent epi sode, moderate F33.1 [place] [address] [place] [address] Jul, Major depressive disorder, recurrent epi sode, moderate F33.1 [place] [address] [address] Jul, Abdominal pain R10.9 and Hypertension I1 0 [place] [address] [place] [id number] Jul, [place] [address] [place] [id number] Jul, Major depressive disorder, recurrent epi sode, moderate F33.1 [place] [address] [address] Jul, [place] [address] [place] [id number] Jul, [place] [address] [address] Jun, [place] [address] [place] [address] Jun, Depressive disorder, not elsewhere class ified F32.9 [place] [address] [address] Jun, [place] [address] [address] Jun, [place] [address] [address] Jun, Arthralgia of hip, unspecified lateralit y M25.559 ; Bruising, spontaneous R23.3 and Night sweats R61 [facility] [address] [place] [id number] [place] [address] Jun, [facility] [address] [address] Jun, [facility] [address] [place] [id number] [place] [address] May, [facility] [address] [address] May, Myalgia M79.1 and Screening, lipid Z13.2 20 [facility] [address] [address] Apr, Status post cervical spinal fusion Z98.1 ; Fibromyalgia M79.7 and Unsteady gait R26.81 [facility] [address] [address] Nov, [facility] [address] [address] Nov, [facility] [address] [address] October, [facility] [address] [address] October, [facility] [address] [address] October, [facility] [address] [address] October, [facility] [address] [address] October, [facility] [address] [address] October, Dysuria 788.1 ; Nausea 787.02 and Urinar y tract infection 599.0 [facility] [address] [address] Sep, [facility] [address] [address] 13 Sep, 2014 [facility] [address] [facility] [id number] [facility] [place] [address] 25 Aug, 2014 [facility] [address] [facility] [id number] [facility] [place] [address] 25 Aug, 2014 [facility] [address] [id number] [place] [address] 24 Aug, 2014 [facility] [address] [facility] [id number] [facility] [place] [address] 24 Aug, 2014 [facility] [address] [facility] [id number] [facility] [place] [address] 23 Aug, 2014 [facility] [address] [id number] [place] [address] 19 Aug, 2014 [facility] [address] [id number] [place] [address] 19 Aug, 2014 [facility] [address] [id number] [place] [address] 19 Aug, 2014 [facility] [address] [facility] [id number] [facility] [place] [address] 19 Aug, 2014 [facility] [address] [id number] [place] [address] 18 Aug, 2014 [facility] [address] [id number] [place] [address] 18 Aug, 2014 [facility] [address] [id number] [place] [address] 13 Aug, 2014 [facility] [address] [facility] [id number] [facility] [place] [address] 13 Aug, 2014 [facility] [address] [id number] [place] [address] 11 Aug, 2014 [facility] [address] [facility] [id number] [place] [address] 11 Aug, 2014 [facility] [address] [id number] [place] [address] 06 Aug, 2014 [facility] [address] [id number] [place] [address] Aug, [facility] [address] [id number] [place] [address] Aug, [facility] [address] [id number] [place] [address] Aug, [facility] [address] [id number] [place] [address] Aug, [facility] [address] [id number] [place] [address] Aug, [facility] [address] [id number] [place] [address] Aug, [facility] [address] [id number] [place] [address] Jul, 2014 [facility] [address] [id number] [place] [address] Jul, [facility] [address] [id number] [place] [address] Jul, 2014 [facility] [address] [id number] [place] [address] Jul, 2014 [facility] [address] [id number] [place] [address] Jul, 2014 [facility] [address] [id number] [place] [address] Jul, 2014 [facility] [address] [id number] [place] [address] Jul, 2014 [facility] [address] [id number] [place] [address] Jul, 2014 [facility] [address] [id number] [place] [address] Jul, 2014 [facility] [address] [id number] [place] [address] Jul, 2014 [facility] [address] [id number] [place] [address] Jul, 2014 [facility] [address] [id number] [place] [address] Jul, 2014 [facility] [address] [id number] [place] [address] Jul, 2014 [facility] [address] [id number] [place] [address] Jul, [facility] [address] [id number] [place] [address] Jun, [facility] [address] [id number] [place] [address] Jun, [facility] [address] [id number] [place] [address] Jun, [facility] [address] [id number] [place] [address] Jun, [facility] [address] [place] [id number] [place] [address] Jun, [facility] [address] [id number] [place] [address] Jun, [facility] [address] [id number] [place] [address] May, [facility] [address] [id number] [place] [address] May, [facility] [address] [id number] [place] [address] May, [facility] [address] [id number] [place] [address] May, [facility] [address] [id number] [place] [address] May, [facility] [address] [id number] [place] [address] May, [facility] [address] [id number] [place] [address] Apr, [facility] [address] [id number] [place] [address] Apr, [facility] [address] [id number] [place] [address] Apr, [facility] [address] [id number] [place] [address] Apr, [facility] [address] [id number] [place] [address] Apr, [facility] [address] [id number] [place] [address] Apr, [facility] [address] [id number] [place] [address] Mar, [facility] [address] [id number] [place] [address] Mar, [facility] [address] [id number] [place] [address] Mar, [facility] [address] [id number] [place] [address] Mar, [facility] [address] [id number] [place] [address] Mar, [facility] [address] [id number] [place] [address] Mar, [facility] [address] [id number] [place] [address] Mar, [facility] [address] [id number] [place] [address] Mar, [facility] [address] [id number] [place] [address] Mar, [facility] [address] [id number] [place] [address] Mar, [facility] [address] [id number] [place] [address] Mar, [facility] [address] [id number] [place] [address] Mar, [facility] [address] [id number] [facility] [address] 30 Feb, 2013 [facility] [address] [facility] [id number] [facility] [place] [address] 29 Feb, 2014 [facility] [address] [id number] [facility] [place] [address] 29 Feb, 2014 [facility] [address] [id number] [facility] [place] [address] Feb, [facility] [address] [facility] [id number] [facility] [place] [address] Feb, [facility] [address] [id number] [place] [address] 08 Feb, 2014 [facility] [address] [id number] [place] [address] 08 Feb, 2014 [facility] [address] [id number] [facility] [place] [address] Jan, [facility] [address] [facility] [id number] [place] [address] Jan, [facility] [address] [id number] [place] [address] Jan, [facility] [place] [facility] [address] [id number] [place] [address] Dec, [facility] [place] [facility] [address] [id number] [place] [address] Dec, [facility] [place] [facility] [address] [facility] [id number] [place] [address] Dec, [facility] [place] [facility] [address] [facility] [id number] [place] [address] Dec, [facility] [place] [facility] [address] [facility] [id number] [place] [address] Sep, [facility] [place] [facility] [address] [id number] [place] [address] Sep, [facility] [place] [facility] [address] [id number] [place] [address] Sep, [facility] [place] [facility] [address] [id number] [place] [address] Sep, [facility] [place] [facility] [address] [id number] [place] [address] Sep, [facility] [place] [facility] [address] [id number] [place] [address] Sep, [facility] [place] [facility] [address] [id number] [place] [address] Sep, [facility] [place] [facility] [address] [id number] [place] [address] Sep, [facility] [place] [facility] [address] [id number] [place] [address] Aug, [facility] [place] [facility] [address] [id number] [place] [address] Aug, [facility] [place] [facility] [address] [id number] [place] [address] May, [facility] [place] [facility] [address] [id number] [place] [address] May, [facility] [place] [facility] [address] [id number] [place] [address] Apr, [facility] [place] [facility] [address] [id number] [place] [address] Apr, [facility] [place] [facility] [address] [id number] [place] [address] Apr, [facility] [place] [facility] [address] [id number] [place] [address] Apr, [facility] [place] [facility] [id number] [place] [address] Apr, [facility] [place] [facility] [address] [id number] [place] [address] Apr, [facility] [place] [facility] [address] [id number] [place] [address] May, [facility] [place] [facility] [address] [id number] [place] [address] 18 May, 2012 [facility] [place] [facility] [address] [id number] [place] [address] 15 May, 2012 [facility] [place] [facility] [address] [id number] [place] [address] 15 May, 2012 [facility] [place] [facility] [address] [id number] [place] [address] 13 May, 2012 [facility] [place] [facility] [address] [id number] [place] [address] 13 May, 2012 [facility] [place] [facility] [address] [id number] [place] [address] 13 Apr, 2012 [facility] [place] [facility] [address] [id number] [place] [address] 13 Apr, 2012 [facility] [place] [facility] [id number] [place] [address] 08 Apr, 2012 [facility] [place] [facility] [address] [id number] [place] [address] 08 Apr, 2012 [facility] [place] [facility] [address] [id number] [place] [address] Apr, [facility] [place] [facility] [address] [facility] [id number] [place] [address] 08 Apr, 2012 [facility] [place] [facility] [address] [id number] [place] [address] Apr, [facility] [place] [facility] [address] [id number] [place] [address] Apr, [facility] [place] [facility] [address] [id number] [place] [address] Apr, [facility] [place] [facility] [id number] [place] [address] Apr, [facility] [place] [facility] [address] [id number] [place] [address] 30 Mar, 2012 [facility] [place] [facility] [address] [id number] [place] [address] Mar, [facility] [place] [facility] [address] [facility] [id number] [place] [address] Mar, [facility] [place] [facility] [address] [facility] [id number] [place] [address] Mar, [facility] [place] [facility] [address] [id number] [place] [address] Mar, [facility] [place] [facility] [address] [id number] [place] [address] Mar, [facility] [place] [facility] [address] [facility] [id number] [place] [address] Mar, [facility] [place] [facility] [address] [id number] [place] [address] Mar, [facility] [place] [facility] [address] [id number] [place] [address] Mar, [facility] [place] [facility] [address] [id number] [place] [address] Feb, [facility] [place] [facility] [address] [facility] [id number] [place] [address] 16 Feb, 2012 [facility] [place] [facility] [address] [id number] [place] [address] Feb, [facility] [place] [facility] [address] [id number] [place] [address] Jan, [facility] [place] [facility] [address] [id number] [place] [address] Jan, [facility] [place] [facility] [address] [facility] [id number] [place] [address] Jan, [facility] [place] [facility] [address] [facility] [id number] [place] [address] Jan, [facility] [place] [facility] [address] [facility] [id number] [place] [address] Jan, [facility] [place] [facility] [address] [id number] [place] [address] Jan, [facility] [place] [facility] [address] [id number] [place] [address] Jan, [facility] [place] [facility] [address] [id number] [facility] [place] [address] Jan, [facility] [place] [facility] [address] [id number] [place] [address] Jan, [facility] [place] [facility] [address] [id number] [place] [address] Jan, [facility] [place] [facility] [address] [id number] [place] [address] Dec, [facility] [place] [facility] [address] [id number] [place] [address] Dec, [facility] [place] [facility] [address] [id number] [place] [address] Dec, [facility] [place] [facility] [address] [id number] [place] [address] Dec, [facility] [place] [facility] [address] [id number] [place] [address] Nov, [facility] [place] [facility] [address] [id number] [place] [address] Nov, [facility] [place] [facility] [address] [id number] [place] [address] Nov, [facility] [place] [facility] [address] [id number] [place] [address] October, [facility] [place] [facility] [address] [id number] [place] [address] October, [facility] [place] [facility] [address] [id number] [place] [address] October, [facility] [place] [facility] [address] [id number] [place] [address] October, [facility] [place] [facility] [address] [id number] [place] [address] October, [facility] [place] [facility] [address] [id number] [place] [address] October, [facility] [address] [id number] [place] [address] Aug, [facility] [id number] [place] [address] Mar, [facility] [id number] [place] [address] Nov, [facility] [id number] [place] [address] May, [facility] [address] [address] May, [facility] [address] [address] Apr, [facility] [id number] [place] [address] Mar, [facility] [id number] [place] [address] Mar, IMMUNIZATIONS No Known Immunizations SOCIAL HISTORY Never Assessed REASON FOR VISIT back pain/weight loss PLAN OF CARE Activity Details Follow Up [...]
--- OUTSIDE RECORDS SUMMARY | 2020-02-02 19:44 | XMS REPORT ---
Author Author Sydnie HENRIQUEZ Organization [facility] Address [address] [place] [address] Care Team Providers Care Director Radio Name Role Phone KATELYN HENRIQUEZ Unavailable PROBLEMS Type Condition ICD9-CM Code YSZ07-AG Code Onset Dates Condition S tatus SNOMED Code Problem Sensorineural hearing loss (SNHL) of both ears H90 .3 Active 364381285 Problem Night sweats R61 Active 8040692 0 Problem Bruising, spontaneous R23.3 Active 490041926 Problem Hypertension I10 Active 1868740 3 Problem Arthralgia of hip, unspecified laterality M25.559 Active 59258371 Problem Other chronic pain G89.29 Active 8 2807523 Problem Grief F43.20 Active 40463278 Problem Fibromyalgia M79.7 Active 2439135 7 Problem Hormone replacement therapy Z79.890 Ac tive 911498765 Problem Major depressive disorder, recurrent episode, moderate F33.1 Active 498708306 Problem Abnormal CT scan, head R93.0 Active 010913703 Problem Age-related osteoporosis without current pathological fracture M81.0 Active 50668808 Problem Hearing loss, unspecified laterality H91.90 Active 11858531 Problem Ataxia R27.0 Active 79567449 Problem History of colon polyps Z86.010 Active 605825231 Problem Allergic rhinitis J30.9 Active 61 348811 Problem Hematuria, unspecified type R31.9 Ac tive 98371452 Problem Generalized anxiety disorder F41.1 A ctive 09913980 Problem Imbalance R26.89 Active 804901712 Problem Hammer toe of right foot M20.41 Activ e 130586079 Problem Bladder spasm N32.89 Active 410400 006 Problem Acute left-sided low back pain with left-sided sciatica M54.42 Active 692130577 Problem Sciatica of left side M54.32 Active 56063703 Problem Sciatica of right side M54.31 Active 30352159 Problem Gastritis without bleeding, unspecified chronicity, unspecified gastritis type K29.70 Active 674108946 Problem Hearing loss, unspecified hearing loss type, uns pecified laterality H91.90 Active 56905099 Problem Hyperlipidemia, unspecified hyperlipidemia type E7 8.5 Active 48004236 Problem Bipolar 1 disorder, mixed F31.60 Acti ve 96792775 Problem Plantar wart of right foot B07.0 Act mitchell [id number] Problem Slow transit constipation K59.01 Acti ve 60987085 Problem Tobacco use disorder F17.200 Active 415912945 Problem Post menopausal syndrome N95.1 Activ e 271793769 ALLERGIES No Information ENCOUNTERS Encounter Location Date Diagnosis [place] [address] [address] Sep, [place] [address] [address] Aug, [place] [address] [address] Jul, [place] [address] [address] Jul, Bipolar 1 disorder, mixed F31.60 [place] [address] [address] Jul, [place] [address] [address] Jul, Tobacco use disorder F17.200 [place] [address] [address] Jun, Bipolar 1 disorder, mixed F31.60 [place] [address] [address] Jun, Bipolar 1 disorder, mixed F31.60 ; Gener alized anxiety disorder F41.1 and Tobacco use disorder F17.200 [place] [address] [address] Jun, Tobacco use disorder F17.200 [place] [address] [address] May, [facility] [address] [address] May, Compression fracture of L1 vertebra with routine healing, subsequent encounter S32.010D [facility] [address] [address] May, [facility] [address] [address] May, [facility] [address] [address] May, [facility] [address] [address] May, [facility] [address] [address] May, [facility] [address] [address] May, [facility] [address] [address] May, [facility] [address] [address] May, Bipolar 1 disorder, mixed F31.60 [place] [address] [address] May, Closed fracture of right upper extremity with routine healing, subsequent encounter S42.301D and Hearing loss, unspecified hearing loss type, unspecified laterality H91.90 [facility] [address] [address] May, [facility] [address] [address] Apr, Allergic rhinitis J30.9 ; Abdominal pain , unspecified location R10.9 and Seborrheic keratosis L82.1 [facility] [address] [address] Mar, Bipolar 1 disorder, mixed F31.60 [facility] [address] [address] Mar, Bipolar 1 disorder, mixed F31.60 ; Gener alized anxiety disorder F41.1 and Tobacco use disorder F17.200 [place] [address] [address] Feb, Excessive gas R14.3 ; Other chronic pain G89.29 ; Encounter for immunization Z23 ; Hyperlipidemia, unspecified hyperlipidemia type E78.5 ; Bipolar 1 disorder, mixed F31.60 and Other skilled nursing (current) drug therapy Z79.899 [place] [address] [address] Feb, Bipolar 1 disorder, mixed F31.60 [place] [address] [address] Jan, Sciatica of right side M54.31 ; Low back pain M54.5 and Major depressive disorder, recurrent episode, moderate F33.[address] [address] Jan, Bipolar 1 disorder, mixed F31.60 [place] [address] [address] Dec, Normal pelvic exam Z01.[address] [address] Dec, Bipolar 1 disorder, mixed F31.60 [place] [address] [address] Nov, Bipolar 1 disorder, mixed F31.60 [place] [address] [address] Nov, Bipolar 1 disorder, mixed F31.60 ; Gener alized anxiety disorder F41.1 ; Tobacco use disorder F17.200 and Other skilled nursing (current) drug therapy Z79.899 [place] [address] [address] Nov, [place] [address] [address] Nov, Bipolar 1 disorder, mixed F31.60 [place] [address] [address] October, Bipolar 1 disorder, mixed F31.60 [place] [address] [address] October, Bipolar 1 disorder, mixed F31.60 [place] [address] [address] October, [place] [address] [address] October, Bipolar 1 disorder, mixed F31.60 ; Gener alized anxiety disorder F41.1 and Tobacco use disorder F17.200 [place] [address] [address] Sep, [place] [address] [address] Sep, Encounter for Medicare annual wellness e xam Z00.00 ; Major depressive disorder, recurrent episode, moderate F33.1 ; Allergic rhinitis J30.9 ; Bipolar 1 disorder, mixed F31.60 ; Fibromyalgia M79.7 ; Hyperlipidemia, unspecified hyperlipidemia type E78.5 ; Hormone replacement therapy Z79.890 ; Encounter for screening for lung cancer Z12.2 and Tobacco use disorder F17.200 [place] [address] [address] Sep, Bipolar 1 disorder, mixed F31.60 [place] [address] [address] Sep, Other chronic pain G89.29 ; Hyperlipidem ia, unspecified hyperlipidemia type E78.5 ; Breast cancer screening Z12.31 and Post menopausal syndrome N95.1 [place] [address] [address] Sep, Bipolar 1 disorder, mixed F31.60 [place] [address] [address] Sep, Bipolar 1 disorder, mixed F31.60 ; Gener alized anxiety disorder F41.1 and Tobacco use disorder F17.200 [place] [address] [place] [address] Sep, Gastritis without bleeding, unspecified chronicity, unspecified gastritis type K29.70 [place] [address] [address] Sep, Exercise counseling Z71.82 [place] [address] [address] Aug, Exercise counseling Z71.82 [place] [address] [place] [address] Aug, Bipolar 1 disorder, mixed F31.60 [place] [address] [address] Aug, Exercise counseling Z71.82 [place] [address] [address] Aug, Bipolar 1 disorder, mixed F31.60 [place] [address] [address] Aug, Gastritis without bleeding, unspecified chronicity, unspecified gastritis type K29.70 ; Tobacco abuse Z72.0 ; Generalized anxiety disorder F41.1 and Weight gain R63.5 [place] [address] [address] Aug, Bipolar 1 disorder, mixed F31.60 ; Gener alized anxiety disorder F41.1 and Tobacco use disorder F17.200 [place] [address] [address] Jul, Bipolar 1 disorder, mixed F31.60 [place] [address] [address] Jul, [place] [address] [address] Jul, Bipolar 1 disorder, mixed F31.60 [place] [address] [address] Jul, Allergic rhinitis J30.9 ; Major depressi ve disorder, recurrent episode, moderate F33.1 and Tobacco dependence F17.200 [place] [address] [address] Jun, [place] [address] [address] Jun, [place] [address] [address] Jun, Bipolar 1 disorder, mixed F31.60 [place] [address] [address] Jun, Bipolar 1 disorder, mixed F31.60 [place] [address] [address] Jun, Bipolar 1 disorder, mixed F31.60 [place] [address] [address] Jun, Generalized anxiety disorder F41.1 ; Tob acco abuse Z72.0 and Major depressive disorder, recurrent episode, moderate F33.1 [place] [address] [address] May, Bipolar 1 disorder, mixed F31.60 [place] [address] [address] May, Bipolar 1 disorder, mixed F31.60 and Gen eralized anxiety disorder F41.1 [place] [address] [address] May, Bipolar 1 disorder, mixed F31.60 [place] [address] [address] May, Allergic rhinitis J30.9 [place] [address] [address] May, Bipolar 1 disorder, mixed F31.60 [facility] [address] [address] May, [facility] [address] [place] [address] Apr, Allergic rhinitis J30.9 ; Dysfunction of both eustachian tubes H69.83 ; History of bladder surgery Z98.890 and Cervicalgia M54.2 [place] [address] [address] Mar, Bipolar 1 disorder, mixed F31.60 [place] [address] [address] Mar, [place] [address] [place] [address] Mar, Slow transit constipation K59.01 ; Encou nter for immunization Z23 and Generalized anxiety disorder F41.1 [place] [address] [address] Feb, Bipolar 1 disorder, mixed F31.60 [place] [address] [address] Feb, Allergic rhinitis J30.9 [place] [address] [address] 24 Feb, 2018 Bipolar 1 disorder, mixed F31.60 [place] [address] [address] Feb, Bipolar 1 disorder, mixed F31.60 and Gen eralized anxiety disorder F41.1 [place] [address] [address] 13 Feb, 2018 Bipolar 1 disorder, mixed F31.60 [place] [address] [address] 11 Feb, 2018 Allergic rhinitis J30.9 [facility] [address] [address] 05 Feb, 2018 [place] [address] [address] Jan, Bipolar 1 disorder, mixed F31.60 [place] [address] [address] Jan, Low back pain M54.5 ; Hyperlipidemia, un specified hyperlipidemia type E78.5 and Bipolar 1 disorder, mixed F31.60 [place] [address] [address] Jan, Bipolar 1 disorder, mixed F31.60 [place] [address] [address] Jan, Bipolar 1 disorder, mixed F31.60 [place] [address] [address] Jan, Bipolar 1 disorder, mixed F31.60 [place] [address] [address] Jan, Bipolar 1 disorder, mixed F31.60 [place] [address] [address] Dec, Bipolar 1 disorder, mixed F31.60 ; Gener alized anxiety disorder F41.1 and Other meterman (current) drug therapy Z79.899 [place] [address] [address] Dec, Other meterman (current) drug therapy Z 79.899 [place] [address] [address] Dec, Bipolar 1 disorder, mixed F31.60 [place] [address] [address] Dec, Bipolar 1 disorder, mixed F31.60 [place] [address] [address] Nov, Bipolar 1 disorder, mixed F31.60 [facility] [address] [address] Nov, Bipolar 1 disorder, mixed F31.60 [facility] [address] [address] Nov, Bipolar 1 disorder, mixed F31.60 [facility] [address] [address] Nov, Allergic rhinitis J30.9 [facility] [address] [address] Nov, Allergic rhinitis J30.9 [facility] [address] [address] Nov, [place] [address] [address] Nov, Bipolar 1 disorder, mixed F31.60 [place] [address] [address] Nov, Fibromyalgia M79.7 and Allergic rhinitis J30.9 [place] [address] [address] October, Bipolar 1 disorder, mixed F31.60 [facility] [address] [address] October, Acute nasopharyngitis J00 [facility] [place] [address] [place] [id number] [place] [address] October, Bitten or stung by nonvenomo us insect and other nonvenomous arthropods, initial encounter W57.XXXA and Insect bite (nonvenomous) of abdominal wall, initial encounter S30.861A [place] [address] [address] October, Insect bite (nonvenomous) of abdominal w all, initial encounter S30.861A ; Bitten or stung by nonvenomous insect and other nonvenomous arthropods, initial encounter W57.XXXA ; Allergic rhinitis J30.9 and Low back pain M54.5 [place] [address] [address] October, Bipolar 1 disorder, mixed F31.60 [facility] [address] [address] October, [facility] [address] [address] October, [facility] [address] [address] October, Bipolar 1 disorder, mixed F31.60 [facility] [address] [address] Sep, Bipolar 1 disorder, mixed F31.60 [place] [address] [address] Sep, Other chronic pain G89.29 [place] [address] [address] Sep, [place] [address] [address] Sep, Bipolar 1 disorder, mixed F31.60 [place] [address] [address] Sep, Allergic rhinitis J30.9 and Sciatica of left side M54.32 [place] [address] [address] Sep, Bipolar 1 disorder, mixed F31.60 [place] [address] [address] Sep, Bipolar 1 disorder, mixed F31.60 and Gen eralized anxiety disorder F41.1 [place] [address] [address] Aug, [place] [address] [address] Aug, Bipolar 1 disorder, mixed F31.60 [facility] [address] [address] Aug, Bipolar 1 disorder, mixed F31.60 [facility] [address] [address] Aug, [facility] [address] [address] Aug, Generalized anxiety disorder F41.1 [facility] [address] [address] Aug, Bipolar 1 disorder, mixed F31.60 [facility] [address] [address] Aug, Plantar wart of right foot B07.0 [facility] [address] [address] Aug, Bipolar 1 disorder, mixed F31.60 [facility] [address] [address] Jul, Bipolar 1 disorder, mixed F31.60 [facility] [address] [address] Jul, [facility] [address] [address] Jul, Bipolar 1 disorder, mixed F31.60 [facility] [address] [address] Jul, Generalized anxiety disorder F41.1 [facility] [address] [address] Jul, Bipolar 1 disorder, mixed F31.60 [facility] [address] [address] Jul, Acute left-sided low back pain with left -sided sciatica M54.42 [facility] [address] [address] 05 Jul, 2017 Coccydynia M53.3 [facility] [address] [address] Jun, Bipolar 1 disorder, mixed F31.60 [facility] [address] [place] [id number] [place] [address] Jun, Acute nasopharyngitis J00 [place] [address] [address] Jun, Bipolar 1 disorder, mixed F31.60 [place] [address] [address] Jun, Fibromyalgia M79.7 [place] [address] [address] Jun, Bipolar 1 disorder, mixed F31.60 [place] [address] [address] Jun, Fibromyalgia M79.7 and Bipolar 1 disorde r, mixed F31.60 [place] [address] [address] May, Bipolar 1 disorder, mixed F31.60 ; Gener alized anxiety disorder F41.1 and Other meterman (current) drug therapy Z79.899 [place] [address] [address] May, Bipolar 1 disorder, mixed F31.60 [facility] [address] [place] [id number] [place] [address] May, Cough R05 and Body aches R52 [facility] [address] [place], [place] [id number] [address] [place] [address] May, Bladder spasm N32.89 and Acu te cystitis without hematuria N30.00 [place] [address] [address] May, Bipolar 1 disorder, mixed F31.60 [place] [address] [address] Apr, [place] [address] [address] Apr, Major depressive disorder, recurrent epi sode, moderate F33.1 and Encounter for immunization Z23 [facility] [address] [address] Apr, Bipolar 1 disorder, mixed F31.60 [facility] [address] [address] Apr, Bipolar 1 disorder, mixed F31.60 [place] [address] [address] Apr, Bipolar 1 disorder, mixed F31.60 [place] [address] [address] Apr, Yeast vaginitis B37.3 [place] [address] [address] Apr, Bipolar 1 disorder, mixed F31.60 [facility] [address] [facility] [id number] [place] [address] Apr, Cellulitis L03.[address] for immunization Z23 [place] [address] [address] Apr, Bipolar 1 disorder, mixed F31.60 [place] [address] [address] Mar, Bipolar 1 disorder, mixed F31.60 [place] [address] [address] Mar, Bipolar 1 disorder, mixed F31.60 [place] [address] [address] Mar, Imbalance R26.89 and Encounter for immun ization Z23 [place] [address] [address] Mar, Generalized anxiety disorder F41.1 [place] [address] [address] Mar, Bipolar 1 disorder, mixed F31.60 [place] [address] [address] Mar, Generalized anxiety disorder F41.1 [place] [address] [address] Mar, Bipolar 1 disorder, mixed F31.60 [place] [address] [address] Mar, Bipolar 1 disorder, mixed F31.60 [place] [address] [address] Feb, Bipolar 1 disorder, mixed F31.60 [place] [address] [address] Feb, Bipolar 1 disorder, mixed F31.60 and Gen eralized anxiety disorder F41.1 [place] [address] [address] Feb, Gastritis without bleeding, unspecified chronicity, unspecified gastritis type K29.70 ; Hammer toe of right foot M20.41 and Other viral warts B07.8 [place] [address] [address] Feb, Bipolar 1 disorder, mixed F31.60 [place] [address] [address] 13 Feb, 2017 Bipolar 1 disorder, mixed F31.60 [place] [address] [address] 05 Feb, 2017 Bipolar 1 disorder, mixed F31.60 [place] [address] [address] Jan, Encounter for screening mammogram for br east cancer Z12.31 ; Other viral warts B07.8 and Allergic rhinitis J30.9 [place] [address] [address] Jan, Bipolar 1 disorder, mixed F31.60 [place] [address] [address] Jan, Bipolar 1 disorder, mixed F31.60 [place] [address] [address] Jan, [place] [address] [address] Jan, Bipolar 1 disorder, mixed F31.60 [place] [address] [address] Jan, Bipolar 1 disorder, mixed F31.60 [place] [address] [address] Jan, Allergic rhinitis J30.9 ; Hematuria R31. 9 and Colon cancer screening Z12.11 [place] [address] [address] Dec, Bipolar 1 disorder, mixed F31.60 [place] [address] [address] Dec, Bipolar 1 disorder, mixed F31.60 ; Gener alized anxiety disorder F41.1 and Other meterman (current) drug therapy Z79.899 [place] [address] [address] Dec, Bipolar 1 disorder, mixed F31.60 [place] [address] [address] Dec, Bipolar 1 disorder, mixed F31.60 [place] [address] [address] Dec, Bipolar 1 disorder, mixed F31.60 [place] [address] [address] Dec, Low back pain M54.5 and Recurrent urinar y tract infection N39.0 [place] [address] [address] Nov, Bipolar 1 disorder, mixed F31.60 [place] [address] [address] Nov, Bipolar 1 disorder, mixed F31.60 [place] [address] [address] Nov, Bipolar 1 disorder, mixed F31.60 [facility] [address] [address] Nov, Bipolar 1 disorder, mixed F31.60 [place] [address] [address] 08 Nov, 2016 [place] [address] [address] Nov, Anesthesia of skin R20.0 ; Frequent UTI N39.0 ; Tobacco abuse Z72.0 and Colon cancer screening Z12.11 [place] [address] [address] Nov, Bipolar 1 disorder, mixed F31.60 [place] [address] [address] October, Bipolar 1 disorder, mixed F31.60 [place] [address] [address] October, Bipolar 1 disorder, mixed F31.60 [place] [address] [address] October, Bipolar 1 disorder, mixed F31.60 [place] [address] [address] October, Bipolar 1 disorder, mixed F31.60 [place] [address] [address] October, Bipolar 1 disorder, mixed F31.60 [place] [address] [address] October, Cervicalgia M54.2 and Bipolar 1 disorder , mixed F31.60 [place] [address] [address] October, Hypertension I10 ; Hyperlipidemia, unspe cified hyperlipidemia type E78.5 and Family history of thyroid disease Z83.49 [place] [address] [address] October, [place] [address] [address] October, Hypertension I10 ; Hyperlipidemia, unspe cified hyperlipidemia type E78.5 and Family history of thyroid problem Z83.49 [place] [address] [address] October, Bipolar 1 disorder, mixed F31.60 [place] [address] [address] Sep, Bipolar 1 disorder, mixed F31.60 [place] [address] [address] Sep, Bipolar 1 disorder, mixed F31.60 [place] [address] [address] Sep, Bipolar 1 disorder, mixed F31.60 [place] [address] [address] Sep, History of colon polyps Z86.010 and Thomas tochezia K92.1 [place] [address] [address] Sep, Major depressive disorder, recurrent epi sode, moderate F33.1 [place] [address] [address] Sep, Bipolar 1 disorder, mixed F31.60 [place] [address] [address] Aug, Hot flashes due to menopause N95.1 [place] [address] [address] Aug, Bipolar 1 disorder, mixed F31.60 [place] [address] [address] Aug, [place] [address] [address] Aug, Bipolar 1 disorder, mixed F31.60 [place] [address] [place] [address] Aug, Bipolar 1 disorder, mixed F31.60 [place] [address] [address] Aug, Hot flashes due to menopause N95.1 ; Cer vicalgia M54.2 and Ataxia R27.0 [place] [address] [address] Jul, Bipolar 1 disorder, mixed F31.60 [place] [address] [address] Jul, Bipolar 1 disorder, mixed F31.60 [place] [address] [address] Jul, Bipolar 1 disorder, mixed F31.60 [place] [address] [address] Jul, Bipolar 1 disorder, mixed F31.60 [place] [address] [place] [id number] Jul, Bipolar 1 disorder, mixed F31.60 [place] [address] [place] [id number] Jul, Cervicalgia M54.2 ; Tremor R25.1 ; Heari ng abnormally acute, unspecified laterality H93.239 ; Alopecia L65.9 ; Encounter for immunization Z23 and Family history of thyroid disease Z83.49 [place] [address] [place] [id number] 06 Jul, 2016 Bipolar 1 disorder, mixed F31.60 [place] [address] [address] Jun, [place] [address] [address] Jun, Hearing disorder, unspecified laterality H93.299 [facility] [address] [address] Jun, Bipolar 1 disorder, mixed F31.60 [facility] [address] [address] Jun, Bipolar 1 disorder, mixed F31.60 [facility] [address] [address] Jun, Allergic rhinitis J30.9 [facility] [address] [address] Jun, Bipolar 1 disorder, mixed F31.60 [facility] [address] [address] Jun, Bipolar 1 disorder, mixed F31.60 [facility] [address] [address] Jun, Allergic rhinitis J30.9 [facility] [address] [address] Jun, Allergic rhinitis J30.9 [facility] [address] [address] Jun, Bipolar 1 disorder, mixed F31.60 [facility] [address] [address] May, Bipolar 1 disorder, mixed F31.60 [facility] [address] [address] May, Bipolar 1 disorder, mixed F31.60 [facility] [address] [address] May, [facility] [address] [address] May, Bipolar 1 disorder, mixed F31.60 [facility] [address] [address] May, Bipolar 1 disorder, mixed F31.60 [facility] [address] [address] May, [facility] [address] [address] May, [facility] [address] [address] May, [facility] [address] [address] May, Abdominal pain, unspecified location R10 .9 [facility] [address] [address] May, [facility] [address] [address] Apr, Hematuria R31.9 ; Ataxia R27.0 and Heari ng loss, unspecified laterality H91.90 [facility] [address] [address] Apr, Bipolar 1 disorder, mixed F31.60 [facility] [address] [facility] [id number] [address] [place] [address] Apr, Acute effusion of both middl e ears H65.193 [facility] [address] [address] Apr, Hematuria R31.9 and Pyelonephritis N12 [facility] [address] [address] Apr, [facility] [address] [address] Mar, Bipolar 1 disorder, mixed F31.60 [facility] [address] [address] Mar, [facility] [address] [address] Mar, Bipolar 1 disorder, mixed F31.60 [place] [address] [address] Mar, Bipolar 1 disorder, mixed F31.60 [place] [address] [place] 75[address] Mar, Encounter for immunization Z23 and Gastr itis without bleeding, unspecified chronicity, unspecified gastritis type K29.70 [place] [address] [place] [address] Mar, Bipolar 1 disorder, mixed F31.60 and Gri ef F43.20 [place] [address] [address] Mar, Gastritis without bleeding, unspecified chronicity, unspecified gastritis type K29.70 [place] [address] [address] Mar, Bipolar 1 disorder, mixed F31.60 [place] [address] [address] Mar, Gastritis without bleeding, unspecified chronicity, unspecified gastritis type K29.70 [place] [address] [address] Mar, [place] [address] [place] [address] Feb, Bipolar 1 disorder, mixed F31.60 [place] [address] [address] Feb, Bipolar 1 disorder, mixed F31.60 and Gri ef F43.20 [place] [address] [address] Feb, Gastritis without bleeding, unspecified chronicity, unspecified gastritis type K29.70 [place] [address] [address] 14 Feb, 2016 Bipolar 1 disorder, mixed F31.60 [facility] [address] [facility] [id number] [address] [place] [address] Feb, Gastroesophageal reflux dise ase, esophagitis presence not specified K21.9 [place] [address] Jan, Bipolar 1 disorder, mixed F31.60 [place] [address] Jan, Bipolar 1 disorder, mixed F31.60 and Uns teady gait R26.81 [place] [address] [place] [address] Jan, Bipolar 1 disorder, mixed F31.60 [place] [address] [place] [address] Jan, Bipolar 1 disorder, mixed F31.60 and Oth er meterman (current) drug therapy Z79.899 [place] [address] [address] Jan, Bipolar 1 disorder, mixed F31.60 [place] [address] [place] 75[address] Jan, Bipolar 1 disorder, mixed F31.60 [place] [address] [place] [address] Jan, Bipolar 1 disorder, mixed F31.60 ; Grief F43.20 and Other meterman (current) drug therapy Z79.899 [place] [address] [place] 75[address] Jan, Bipolar 1 disorder, mixed F31.60 [place] [address] [place] 75[address]82[address] Dec, [place] [address] [place] [address]82[address] Dec, Bipolar 1 disorder, mixed F31.60 ; Vitam in D deficiency, unspecified E55.9 ; H/O allergic rhinitis Z87.09 ; Other chronic pain G89.29 and Dorsalgia, unspecified M54.9 [place] [address] [place] [id number] [place] [address] Dec, [place] [address] [address] Dec, Bipolar 1 disorder, mixed F31.60 [place] [address] [place] [id number] [place] [address] Dec, Major depressive disorder, recurrent epi sode, moderate F33.1 [place] [address] [address] Dec, Major depressive disorder, recurrent epi sode, moderate F33.1 [place] [address] [address] Nov, [place] [address] [address] Nov, Bipolar 1 disorder, mixed F31.60 [place] [address] [address] Nov, Major depressive disorder, recurrent epi sode, moderate F33.1 [place] [address] [place] [id number] [place] [address] Nov, Cervicalgia M54.2 ; Arthralgia of hip, u nspecified laterality M25.559 ; Allergic rhinitis J30.9 and Hormone replacement therapy Z79.890 [facility] [address] [facility] [id number] [address] [place] [address] Nov, Other seasonal allergic rhin itis J30.2 [place] [address] [place] [id number] [place] [address] October, Major depressive disorder, recurrent epi sode, moderate F33.1 [place] [address] [address] October, Major depressive disorder, recurrent epi sode, moderate F33.1 and Arthralgia of hip, unspecified laterality M25.559 [place] [address] [address] October, Grief F43.20 ; Hypertension I10 ; Hyperl ipidemia, unspecified hyperlipidemia type E78.5 ; Other chronic pain G89.29 and Allergic rhinitis, unspecified allergic rhinitis type J30.9 [place] [address] [address] October, Major depressive disorder, recurrent epi sode, moderate F33.1 [place] [address] [place] [id number] Sep, Major depressive disorder, recurrent epi sode, moderate F33.[address] [address] Sep, [address] [address] Sep, Major depressive disorder, recurrent epi sode, moderate F33.[address] [address] Sep, Grief F43.[address] [address] Aug, Major depressive disorder, recurrent epi sode, moderate F33.[address] [address] Aug, Bipolar 1 disorder, mixed F31.[address] [address] Aug, Allergic rhinitis J30.9 ; Cervicalgia M5 4.2 and Low back pain M54.[address] [address] Aug, Major depressive disorder, recurrent epi sode, moderate F33.1 [facility] [address] [facility] [id number] [address] [place] [address] Aug, Sinusitis J32.9 and Tobacco dependence F17.[address] [address] Aug, [facility] [address] [address] Aug, Depressive disorder, not elsewhere class ified F32.9 ; Hormone replacement therapy Z79.[address] scan, head R93.0 [facility] [address] [address] 08 Aug, 2015 Major depressive disorder, recurrent epi sode, moderate F33.1 [facility] [address] [address] Jul, Major depressive disorder, recurrent epi sode, moderate F33.1 [place] [address] [address] Jul, Abdominal pain R10.9 and Hypertension I1 0 [place] [address] [address] Jul, [facility] [address] [address] Jul, Major depressive disorder, recurrent epi sode, moderate F33.1 [place] [address] [address] Jul, [facility] [address] [address] Jul, [facility] [address] [address] Jun, [facility] [address] [address] Jun, Depressive disorder, not elsewhere class ified F32.9 [facility] [address] [address] Jun, [facility] [address] [address] Jun, [facility] [address] [address] Jun, Arthralgia of hip, unspecified lateralit y M25.559 ; Bruising, spontaneous R23.3 and Night sweats R61 [place] [address] [address] Jun, [facility] [address] [address] Jun, [facility] [address] [address] May, [place] [address] [address] May, Myalgia M79.1 and Screening, lipid Z13.2 20 [place] [address] [address] Apr, Status post cervical spinal fusion Z98.1 ; Fibromyalgia M79.7 and Unsteady gait R26.81 [place] [address] [address] Nov, [facility] [address] [address] Nov, [place] [address] [address] October, [facility] [address] [address] October, [place] [address] [address] October, [facility] [address] [address] October, [facility] [address] [address] October, [place] [address] [address] October, Dysuria 788.1 ; Nausea 787.02 and Urinar y tract infection 599.0 [facility] [address] [address] 14 Sep, 2014 [facility] [place] [facility] [address] [facility] [id number] [place] [address] 13 Sep, 2014 [facility] [place] [address] [facility] [id number] [facility] [place] [address] 25 Aug, 2014 [facility] [place] [address] [id number] [place] [address] 25 Aug, 2014 [facility] [place] [address] [facility] [id number] [facility] [place] [address] 24 Aug, 2014 [facility] [place] [address] [facility] [id number] [place] [address] 24 Aug, 2014 [facility] [address] [id number] [place] [address] 23 Aug, 2014 [facility] [address] [id number] [place] [address] 19 Aug, 2014 [facility] [place] [address] [id number] [place] [address] 19 Aug, 2014 [facility] [place] [address] [facility] [id number] [place] [address] 19 Aug, 2014 [facility] [place] [facility] [address] [id number] [place] [address] 19 Aug, 2014 [facility] [place] [address] [id number] [place] [address] 18 Aug, 2014 [facility] [place] [address] [id number] [place] [address] 18 Aug, 2014 [facility] [address] [facility] [id number] [place] [address] 13 Aug, 2014 [facility] [place] [address] [facility] [id number] [place] [address] 13 Aug, 2014 [facility] [place] [facility] [address] [facility] [id number] [place] [address] 11 Aug, 2014 [facility] [place] [address] [id number] [place] [address] 11 Aug, 2014 [facility] [place] [address] [id number] [facility] [place] [address] Aug, 2014 [facility] [place] [address] [facility] [id number] [place] [address] Aug, [facility] [place] [address] [id number] [place] [address] Aug, 2014 [facility] [place] [facility] [address] [id number] [place] [address] Aug, 2014 [facility] [place] [facility] [address] [id number] [place] [address] Aug, [facility] [place] [facility] [address] [id number] [place] [address] Aug, [facility] [address] [id number] [place] [address] Aug, [facility] [facility] [address] [id number] [place] [address] Jul, [facility] [place] [facility] [address] [id number] [place] [address] Jul, 2014 [facility] [address] [id number] [place] [address] Jul, [facility] [address] [id number] [place] [address] Jul, 2014 [facility] [address] [id number] [place] [address] Jul, [facility] [place] [facility] [address] [id number] [place] [address] Jul, 2014 [facility] [place] [facility] [address] [id number] [place] [address] Jul, [facility] [place] [facility] [address] [id number] [place] [address] Jul, 2014 [facility] [place] [address] [id number] [place] [address] Jul, 2014 [facility] [address] [id number] [place] [address] Jul, 2014 [facility] [address] [facility] [id number] [place] [address] Jul, 2014 [facility] [address] [facility] [id number] [place] [address] Jul, 2014 [facility] [place] [address] [id number] [place] [address] Jul, [facility] [address] [id number] [place] [address] Jul, [facility] [address] [id number] [place] [address] Jun, [facility] [address] [id number] [place] [address] Jun, [facility] [address] [id number] [place] [address] Jun, [facility] [address] [id number] [place] [address] Jun, [facility] [address] [id number] [place] [address] Jun, [facility] [place] [facility] [address] [id number] [place] [address] Jun, [facility] [place] [facility] [address] [id number] [place] [address] May, [facility] [place] [facility] [address] [id number] [place] [address] May, [facility] [place] [facility] [address] [id number] [place] [address] May, [facility] [address] [id number] [place] [address] May, [facility] [address] [id number] [place] [address] May, [facility] [address] [id number] [place] [address] May, [facility] [address] [id number] [place] [address] Apr, [facility] [address] [facility] [id number] [place] [address] Apr, [facility] [address] [id number] [place] [address] Apr, [facility] [facility] [address] [id number] [place] [address] Apr, [facility] [place] [facility] [address] [id number] [place] [address] Apr, [facility] [address] [id number] [place] [address] Apr, [facility] [address] [id number] [place] [address] Mar, [facility] [address] [id number] [place] [address] Mar, [facility] [address] [id number] [place] [address] Mar, [facility] [address] [id number] [place] [address] Mar, [facility] [facility] [address] [id number] [place] [address] Mar, [facility] [address] [id number] [place] [address] Mar, [facility] [address] [id number] [place] [address] Mar, [facility] [address] [id number] [place] [address] Mar, [facility] [address] [id number] [place] [address] Mar, [facility] [facility] [address] [id number] [place] [address] Mar, [facility] [facility] [address] [id number] [place] [address] Mar, [facility] [place] [facility] [address] [facility] [id number] [place] [address] Mar, [facility] [place] [facility] [address] [facility] [id number] [place] [address] 30 Feb, 2014 [facility] [address] [id number] [place] [address] Feb, 2013 [facility] [address] [id number] [place] [address] Feb, [facility] [address] [facility] [id number] [place] [address] Feb, [facility] [address] [id number] [place] [address] Feb, [facility] [address] [id number] [place] [address] Feb, [facility] [address] [id number] [place] [address] Feb, [facility] [address] [id number] [place] [address] Jan, [facility] [address] [id number] [place] [address] Jan, [facility] [address] [id number] [place] [address] Jan, [facility] [address] [id number] [place] [address] Dec, [facility] [address] [id number] [place] [address] Dec, [facility] [address] [id number] [place] [address] Dec, [facility] [address] [id number] [place] [address] Dec, [facility] [address] [id number] [place] [address] Sep, [facility] [address] [id number] [place] [address] Sep, [facility] [address] [id number] [place] [address] Sep, [facility] [address] [id number] [place] [address] Sep, [facility] [address] [id number] [place] [address] Sep, [facility] [address] [id number] [place] [address] Sep, [facility] [address] [id number] [place] [address] Sep, [facility] [address] [id number] [place] [address] Sep, [facility] [address] [id number] [place] [address] Aug, [facility] [address] [id number] [place] [address] Aug, [facility] [address] [id number] [place] [address] May, [facility] [address] [id number] [place] [address] May, [facility] [address] [id number] [place] [address] Apr, [facility] [address] [id number] [place] [address] Apr, [facility] [address] [id number] [place] [address] Apr, [facility] [address] [id number] [place] [address] Apr, [facility] [address] [id number] [place] [address] Apr, [facility] [address] [id number] [place] [address] Apr, [facility] [address] [id number] [place] [address] 18 May[facility] 2012 [facility] [address] [id number] [place] [address] 18 May, 2012 [facility] [address] [id number] [place] [address] 15 May, 2012 [facility] [address] [id number] [place] [address] 15 May, 2012 [facility] [address] [id number] [place] [address] 13 May, 2012 [facility] [address] [facility] [id number] [place] [address] 13 May, 2012 [facility] [address] [id number] [place] [address] 13 Apr, 2012 [facility] [address] [id number] [place] [address] 13 Apr, 2012 [facility] [address] [id number] [place] [address] 08 Apr, 2012 [facility] [address] [id number] [place] [address] 08 Apr, 2012 [facility] [address] [id number] [place] [address] 08 Apr, 2012 [facility] [address] [id number] [place] [address] Apr, [facility] [address] [id number] [place] [address] Apr, [facility] [address] [id number] [place] [address] 07 Apr, 2012 [facility] [id number] [place] [address] Apr, [facility] [address] [id number] [place] [address] Apr, [facility] [address] [id number] [place] [address] Mar, [facility] [address] [id number] [place] [address] Mar, [facility] [address] [id number] [place] [address] Mar, [facility] [address] [id number] [place] [address] Mar, [facility] [address] [id number] [place] [address] Mar, [facility] [address] [id number] [place] [address] Mar, [facility] [address] [id number] [place] [address] Mar, [facility] [address] [id number] [place] [address] Mar, [facility] [address] [id number] [place] [address] Mar, [facility] [address] [id number] [place] [address] Feb, [facility] [address] [id number] [place] [address] 16 Feb, 2012 [facility] [address] [id number] [place] [address] Feb, [facility] [address] [id number] [place] [address] Jan, [facility] [address] [id number] [place] [address] Jan, [facility] [address] [id number] [place] [address] Jan, [facility] [address] [id number] [place] [address] Jan, [facility] [address] [id number] [place] [address] Jan, [facility] [address] [id number] [place] [address] Jan, [facility] [address] [facility] [id number] [facility] [place] [address] Jan, [facility] [address] [id number] [facility] [place] [address] Jan, [facility] [address] [id number] [facility] [place] [address] Jan, [facility] [address] [id number] [facility] [place] [address] Jan, [facility] [address] [facility] [id number] [facility] [place] [address] Dec, [facility] [address] [id number] [place] [address] Dec, [facility] [address] [id number] [place] [address] Dec, [facility] [address] [id number] [place] [address] Dec, [facility] [address] [id number] [place] [address] Nov, [facility] [address] [id number] [place] [address] Nov, [facility] [address] [id number] [place] [address] Nov, [facility] [address] [id number] [place] [address] October, [facility] [address] [id number] [place] [address] October, [facility] [address] [id number] [place] [address] October, [facility] [address] [id number] [place] [address] October, [facility] [address] [id number] [place] [address] October, [facility] [address] [id number] [place] [address] October, [facility] [address] [id number] [place] [address] Aug, [facility] [id number] [place] [address] Mar, [facility] [id number] [place] [address] Nov, [facility] [address] [address] May, [facility] [address] [address] May, [facility] [address] [address] Apr, [facility] [address] [address] Mar, [facility] [id number] [place] [address] Mar, IMMUNIZATIONS No Known Immunizations SOCIAL HISTORY Never Assessed REASON FOR VISIT PLAN OF CARE VITAL SIGNS Height 64 in 2013-10-07 Weight 150.6 lbs 2013-10-07 Temperature 97.9 degrees Fahrenheit 2013-10-07 Heart Rate 84 bpm 2013-10-07 Respiratory Rate 18 2013-10-07 Blood pressure systolic 122 mmHg 2013-10-07 Blood pressure diastolic 70 mmHg 2013-10-07 MEDICATIONS Unknown Medications RESULTS No Results PROCEDURES Procedure Date Ordered Result Body Site REMOVAL OF NAIL BED October 07, 2013 INSTRUCTIONS MEDICATIONS ADMINISTERED No Known Medications [...]
--- OUTSIDE RECORDS SUMMARY | 2020-02-02 19:45 | XMS REPORT ---
Author Author Sydnie MORTON Organization [facility] Address [address] [place] [address] Care Team Providers Care [employer] Security Consultant Name Role Phone JOHN MORTON Unavailable PROBLEMS Type Condition ICD9-CM Code CWW69-IH Code Onset Dates Condition S tatus SNOMED Code Problem Sensorineural hearing loss (SNHL) of both ears H90 .3 Active 194847039 Problem Night sweats R61 Active 5706686 0 Problem Bruising, spontaneous R23.3 Active 244014272 Problem Hypertension I10 Active 1847378 3 Problem Arthralgia of hip, unspecified laterality M25.559 Active 86312193 Problem Other chronic pain G89.29 Active 8 7183121 Problem Grief F43.20 Active 80566308 Problem Fibromyalgia M79.7 Active 5372696 7 Problem Hormone replacement therapy Z79.890 Ac tive 423301402 Problem Major depressive disorder, recurrent episode, moderate F33.1 Active 311038485 Problem Abnormal CT scan, head R93.0 Active 361202193 Problem Age-related osteoporosis without current pathological fracture M81.0 Active 58896591 Problem Hearing loss, unspecified laterality H91.90 Active 84144760 Problem Ataxia R27.0 Active 33740173 Problem History of colon polyps Z86.010 Active 525163469 Problem Allergic rhinitis J30.9 Active 61 418004 Problem Hematuria, unspecified type R31.9 Ac tive 14932116 Problem Generalized anxiety disorder F41.1 A ctive 73643166 Problem Imbalance R26.89 Active 681809496 Problem Hammer toe of right foot M20.41 Activ e 676089429 Problem Bladder spasm N32.89 Active 771018 006 Problem Acute left-sided low back pain with left-sided sciatica M54.42 Active 413913686 Problem Sciatica of left side M54.32 Active 17949427 Problem Sciatica of right side M54.31 Active 64002166 Problem Gastritis without bleeding, unspecified chronicity, unspecified gastritis type K29.70 Active 948730701 Problem Hearing loss, unspecified hearing loss type, uns pecified laterality H91.90 Active 71046748 Problem Hyperlipidemia, unspecified hyperlipidemia type E7 8.5 Active 39626963 Problem Bipolar 1 disorder, mixed F31.60 Acti ve 66501193 Problem Plantar wart of right foot B07.0 Act mitchell [id number] Problem Slow transit constipation K59.01 Acti ve 62674242 Problem Tobacco use disorder F17.200 Active 701564161 Problem Post menopausal syndrome N95.1 Activ e 731495624 ALLERGIES No Information ENCOUNTERS Encounter Location Date Diagnosis [place] [address] [address] Sep, [place] [address] [address] Aug, [place] [address] [address] Jul, Bipolar 1 disorder, mixed F31.60 [place] [address] [address] Jul, [place] [address] [address] Jul, Tobacco use disorder F17.200 [place] [address] [address] Jun, Bipolar 1 disorder, mixed F31.60 [place] [address] [address] Jun, Bipolar 1 disorder, mixed F31.60 ; Gener alized anxiety disorder F41.1 and Tobacco use disorder F17.200 [place] [address] [address] Jun, Tobacco use disorder F17.200 [place] [address] [address] May, [place] [address] [address] May, Compression fracture of L1 vertebra with routine healing, subsequent encounter S32.010D [facility] [address] [address] May, [facility] [address] [address] May, [facility] [address] [address] May, [facility] [address] [place] [address] May, [facility] [address] [address] May, [facility] [address] [address] May, [facility] [address] [address] May, [facility] [address] [address] May, Bipolar 1 disorder, mixed F31.60 [place] [address] [address] May, Closed fracture of right upper extremity with routine healing, subsequent encounter S42.301D and Hearing loss, unspecified hearing loss type, unspecified laterality H91.90 [place] [address] [address] May, [facility] [address] [address] Apr, Allergic rhinitis J30.9 ; Abdominal pain , unspecified location R10.9 and Seborrheic keratosis L82.1 [place] [address] [address] Mar, Bipolar 1 disorder, mixed F31.60 [facility] [address] [address] Mar, Bipolar 1 disorder, mixed F31.60 ; Gener alized anxiety disorder F41.1 and Tobacco use disorder F17.200 [place] [address] [address] Feb, Excessive gas R14.3 ; Other chronic pain G89.29 ; Encounter for immunization Z23 ; Hyperlipidemia, unspecified hyperlipidemia type E78.5 ; Bipolar 1 disorder, mixed F31.60 and Other fci (current) drug therapy Z79.899 [place] [address] [address] Feb, Bipolar 1 disorder, mixed F31.60 [place] [address] [address] Jan, Sciatica of right side M54.31 ; Low back pain M54.5 and Major depressive disorder, recurrent episode, moderate F33.[address] [address] Jan, Bipolar 1 disorder, mixed F31.60 [place] [address] [address] Dec, Normal pelvic exam Z01.[address] [address] Dec, Bipolar 1 disorder, mixed F31.60 [place] [address] [address] Nov, Bipolar 1 disorder, mixed F31.60 [place] [address] [address] Nov, Bipolar 1 disorder, mixed F31.60 ; Gener alized anxiety disorder F41.1 ; Tobacco use disorder F17.200 and Other fci (current) drug therapy Z79.899 [place] [address] [address] Nov, [place] [address] [address] Nov, Bipolar 1 disorder, mixed F31.60 [place] [address] [address] October, Bipolar 1 disorder, mixed F31.60 [place] [address] [address] October, Bipolar 1 disorder, mixed F31.60 [place] [address] [address] October, [place] [address] [address] October, Bipolar 1 disorder, mixed F31.60 ; Gener alized anxiety disorder F41.1 and Tobacco use disorder F17.200 [place] [address] [address] Sep, [place] [address] [address] Sep, Encounter for Medicare annual wellness e xam Z00.00 ; Major depressive disorder, recurrent episode, moderate F33.1 ; Allergic rhinitis J30.9 ; Bipolar 1 disorder, mixed F31.60 ; Fibromyalgia M79.7 ; Hyperlipidemia, unspecified hyperlipidemia type E78.5 ; Hormone replacement therapy Z79.890 ; Encounter for screening for lung cancer Z12.2 and Tobacco use disorder F17.200 [place] [address] [address] Sep, Bipolar 1 disorder, mixed F31.60 [place] [address] [address] Sep, Other chronic pain G89.29 ; Hyperlipidem ia, unspecified hyperlipidemia type E78.5 ; Breast cancer screening Z12.31 and Post menopausal syndrome N95.1 [place] [address] [address] Sep, Bipolar 1 disorder, mixed F31.60 [place] [address] [address] Sep, Bipolar 1 disorder, mixed F31.60 ; Gener alized anxiety disorder F41.1 and Tobacco use disorder F17.200 [place] [address] [address] Sep, Gastritis without bleeding, unspecified chronicity, unspecified gastritis type K29.70 [place] [address] [address] 08 Sep, 2018 Exercise counseling Z71.82 [place] [address] [address] Aug, Exercise counseling Z71.82 [place] [address] [address] Aug, Bipolar 1 disorder, mixed F31.60 [place] [address] [address] Aug, Exercise counseling Z71.82 [place] [address] [address] Aug, Bipolar 1 disorder, mixed F31.60 [place] [address] [address] Aug, Gastritis without bleeding, unspecified chronicity, unspecified gastritis type K29.70 ; Tobacco abuse Z72.0 ; Generalized anxiety disorder F41.1 and Weight gain R63.5 [place] [address] [address] Aug, Bipolar 1 disorder, mixed F31.60 ; Gener alized anxiety disorder F41.1 and Tobacco use disorder F17.200 [place] [address] [address] Jul, Bipolar 1 disorder, mixed F31.60 [place] [address] [address] Jul, [place] [address] [address] Jul, Bipolar 1 disorder, mixed F31.60 [place] [address] [address] Jul, Allergic rhinitis J30.9 ; Major depressi ve disorder, recurrent episode, moderate F33.1 and Tobacco dependence F17.200 [place] [address] [address] Jun, [place] [address] [address] Jun, [place] [address] [place] [address] Jun, Bipolar 1 disorder, mixed F31.60 [place] [address] [address] Jun, Bipolar 1 disorder, mixed F31.60 [place] [address] [address] Jun, Bipolar 1 disorder, mixed F31.60 [place] [address] [address] Jun, Generalized anxiety disorder F41.1 ; Tob acco abuse Z72.0 and Major depressive disorder, recurrent episode, moderate F33.1 [place] [address] [address] May, Bipolar 1 disorder, mixed F31.60 [place] [address] [address] May, Bipolar 1 disorder, mixed F31.60 and Gen eralized anxiety disorder F41.1 [place] [address] [address] May, Bipolar 1 disorder, mixed F31.60 [place] [address] [address] May, Allergic rhinitis J30.9 [place] [address] [address] May, Bipolar 1 disorder, mixed F31.60 [place] [address] [place] [address] May, [facility] [address] [address] Apr, Allergic rhinitis J30.9 ; Dysfunction of both eustachian tubes H69.83 ; History of bladder surgery Z98.890 and Cervicalgia M54.2 [facility] [address] [address] Mar, Bipolar 1 disorder, mixed F31.60 [place] [address] [address] Mar, [place] [address] [address] Mar, Slow transit constipation K59.01 ; Encou nter for immunization Z23 and Generalized anxiety disorder F41.1 [place] [address] [address] Feb, Bipolar 1 disorder, mixed F31.60 [place] [address] [address] Feb, Allergic rhinitis J30.9 [place] [address] [address] 24 Feb, 2018 Bipolar 1 disorder, mixed F31.60 [place] [address] [address] Feb, Bipolar 1 disorder, mixed F31.60 and Gen eralized anxiety disorder F41.1 [facility] [address] [address] 13 Feb, 2018 Bipolar 1 disorder, mixed F31.60 [place] [address] [address] Feb, Allergic rhinitis J30.9 [facility] [address] [address] 05 Feb, 2018 [facility] [address] [address] Jan, Bipolar 1 disorder, mixed F31.60 [facility] [address] [address] Jan, Low back pain M54.5 ; Hyperlipidemia, un specified hyperlipidemia type E78.5 and Bipolar 1 disorder, mixed F31.60 [facility] [address] [address] Jan, Bipolar 1 disorder, mixed F31.60 [facility] [address] [address] Jan, Bipolar 1 disorder, mixed F31.60 [facility] [address] [address] Jan, Bipolar 1 disorder, mixed F31.60 [place] [address] [address] Jan, Bipolar 1 disorder, mixed F31.60 [place] [address] [address] Dec, Bipolar 1 disorder, mixed F31.60 ; Gener alized anxiety disorder F41.1 and Other intermission coordinator (current) drug therapy Z79.899 [place] [address] [address] Dec, Other fci (current) drug therapy Z 79.899 [place] [address] Dec, Bipolar 1 disorder, mixed F31.60 [facility] [address] [address] Dec, Bipolar 1 disorder, mixed F31.60 [place] [address] [address] Nov, Bipolar 1 disorder, mixed F31.60 [facility] [address] [address] Nov, Bipolar 1 disorder, mixed F31.60 [facility] [address] [address] Nov, Bipolar 1 disorder, mixed F31.60 [facility] [address] [address] Nov, Allergic rhinitis J30.9 [facility] [address] [address] Nov, Allergic rhinitis J30.9 [facility] [address] [address] Nov, [facility] [address] [address] Nov, Bipolar 1 disorder, mixed F31.60 [place] [address] [address] Nov, Fibromyalgia M79.7 and Allergic rhinitis J30.9 [place] [address] [address] October, Bipolar 1 disorder, mixed F31.60 [facility] [address] [place] [address] October, Acute nasopharyngitis J00 [facility] [place] [id number] [place] [address] October, Bitten or stung by nonvenomo us insect and other nonvenomous arthropods, initial encounter W57.XXXA and Insect bite (nonvenomous) of abdominal wall, initial encounter S30.861A [place] [address] [address] October, Insect bite (nonvenomous) of abdominal w all, initial encounter S30.861A ; Bitten or stung by nonvenomous insect and other nonvenomous arthropods, initial encounter W57.XXXA ; Allergic rhinitis J30.9 and Low back pain M54.5 [place] [address] [address] October, Bipolar 1 disorder, mixed F31.60 [place] [address] [address] October, [facility] [address] [address] October, [facility] [address] [address] October, Bipolar 1 disorder, mixed F31.60 [facility] [address] [address] Sep, Bipolar 1 disorder, mixed F31.60 [facility] [address] [address] Sep, Other chronic pain G89.29 [place] [address] [address] Sep, [facility] [address] [address] Sep, Bipolar 1 disorder, mixed F31.60 [facility] [address] [address] Sep, Allergic rhinitis J30.9 and Sciatica of left side M54.32 [place] [address] [address] Sep, Bipolar 1 disorder, mixed F31.60 [place] [address] [address] Sep, Bipolar 1 disorder, mixed F31.60 and Gen eralized anxiety disorder F41.1 [facility] [address] [address] Aug, [facility] [address] [address] Aug, Bipolar 1 disorder, mixed F31.60 [facility] [address] [address] Aug, Bipolar 1 disorder, mixed F31.60 [facility] [address] [address] Aug, [facility] [address] [address] Aug, Generalized anxiety disorder F41.1 [facility] [address] [address] Aug, Bipolar 1 disorder, mixed F31.60 [facility] [address] [address] Aug, Plantar wart of right foot B07.0 [facility] [address] [address] Aug, Bipolar 1 disorder, mixed F31.60 [place] [address] [address] Jul, Bipolar 1 disorder, mixed F31.60 [place] [address] [address] Jul, [facility] [address] [address] Jul, Bipolar 1 disorder, mixed F31.60 [place] [address] [address] Jul, Generalized anxiety disorder F41.1 [place] [address] [address] Jul, Bipolar 1 disorder, mixed F31.60 [facility] [address] [address] Jul, Acute left-sided low back pain with left -sided sciatica M54.42 [place] [address] [address] Jul, Coccydynia M53.3 [facility] [address] [address] Jun, Bipolar 1 disorder, mixed F31.60 [facility] [address] [facility] [id number] [address] [place] [address] Jun, Acute nasopharyngitis J00 [place] [address] [address] Jun, Bipolar 1 disorder, mixed F31.60 [place] [address] [address] Jun, Fibromyalgia M79.7 [place] [address] [address] Jun, Bipolar 1 disorder, mixed F31.60 [place] [address] [address] Jun, Fibromyalgia M79.7 and Bipolar 1 disorde r, mixed F31.60 [place] [address] [address] May, Bipolar 1 disorder, mixed F31.60 ; Gener alized anxiety disorder F41.1 and Other intermission coordinator (current) drug therapy Z79.899 [place] [address] [address] May, Bipolar 1 disorder, mixed F31.60 [facility] [place] [id number] [place] [address] 14 May, 2017 Cough R05 and Body aches R52 [facility] [place] [id number] [place] [address] 10 May, 2017 Bladder spasm N32.89 and Acu te cystitis without hematuria N30.00 [place] [address] [address] 07 May, 2017 Bipolar 1 disorder, mixed F31.60 [place] [address] [address] Apr, [place] [address] [address] Apr, Major depressive disorder, recurrent epi sode, moderate F33.1 and Encounter for immunization Z23 [place] [address] [address] 29 Apr, 2017 Bipolar 1 disorder, mixed F31.60 [facility] [address] [place] [address] Apr, Bipolar 1 disorder, mixed F31.60 [place] [address] [address] 16 Apr, 2017 Bipolar 1 disorder, mixed F31.60 [facility] [address] [address] 13 Apr, 2017 Yeast vaginitis B37.3 [place] [address] [address] 09 Apr, 2017 Bipolar 1 disorder, mixed F31.60 [facility] [address] [facility] [id number] [place] [address] 07 Apr, 2017 Cellulitis L03.[address] for immunization Z23 [place] [address] [address] 02 Apr, 2017 Bipolar 1 disorder, mixed F31.60 [place] [address] [address] Mar, Bipolar 1 disorder, mixed F31.60 [place] [address] [address] Mar, Bipolar 1 disorder, mixed F31.60 [place] [address] [address] Mar, Imbalance R26.89 and Encounter for immun ization Z23 [place] [address] [address] Mar, Generalized anxiety disorder F41.1 [place] [address] [address] Mar, Bipolar 1 disorder, mixed F31.60 [place] [address] [address] Mar, Generalized anxiety disorder F41.1 [place] [address] [address] Mar, Bipolar 1 disorder, mixed F31.60 [place] [address] [address] Mar, Bipolar 1 disorder, mixed F31.60 [place] [address] [address] Feb, Bipolar 1 disorder, mixed F31.60 [place] [address] [address] Feb, Bipolar 1 disorder, mixed F31.60 and Gen eralized anxiety disorder F41.1 [place] [address] [address] Feb, Gastritis without bleeding, unspecified chronicity, unspecified gastritis type K29.70 ; Hammer toe of right foot M20.41 and Other viral warts B07.8 [place] [address] [address] Feb, Bipolar 1 disorder, mixed F31.60 [place] [address] [address] 13 Feb, 2017 Bipolar 1 disorder, mixed F31.60 [place] [address] [address] 05 Feb, 2017 Bipolar 1 disorder, mixed F31.60 [place] [address] [address] Jan, Encounter for screening mammogram for br east cancer Z12.31 ; Other viral warts B07.8 and Allergic rhinitis J30.9 [place] [address] [address] Jan, Bipolar 1 disorder, mixed F31.60 [place] [address] [address] Jan, Bipolar 1 disorder, mixed F31.60 [place] [address] [address] Jan, [place] [address] [address] Jan, Bipolar 1 disorder, mixed F31.60 [place] [address] [address] Jan, Bipolar 1 disorder, mixed F31.60 [place] [address] [address] Jan, Allergic rhinitis J30.9 ; Hematuria R31. 9 and Colon cancer screening Z12.11 [place] [address] [address] Dec, Bipolar 1 disorder, mixed F31.60 [place] [address] [address] Dec, Bipolar 1 disorder, mixed F31.60 ; Gener alized anxiety disorder F41.1 and Other fci (current) drug therapy Z79.899 [place] [address] [address] Dec, Bipolar 1 disorder, mixed F31.60 [place] [address] [address] Dec, Bipolar 1 disorder, mixed F31.60 [place] [address] [address] Dec, Bipolar 1 disorder, mixed F31.60 [place] [address] [address] Dec, Low back pain M54.5 and Recurrent urinar y tract infection N39.0 [place] [address] [address] Nov, Bipolar 1 disorder, mixed F31.60 [place] [address] [address] Nov, Bipolar 1 disorder, mixed F31.60 [place] [address] [address] Nov, Bipolar 1 disorder, mixed F31.60 [place] [address] [address] Nov, Bipolar 1 disorder, mixed F31.60 [place] [address] [address] Nov, [place] [address] [address] Nov, Anesthesia of skin R20.0 ; Frequent UTI N39.0 ; Tobacco abuse Z72.0 and Colon cancer screening Z12.11 [place] [address] [address] Nov, Bipolar 1 disorder, mixed F31.60 [place] [address] [address] October, Bipolar 1 disorder, mixed F31.60 [place] [address] [address] October, Bipolar 1 disorder, mixed F31.60 [place] [address] [address] October, Bipolar 1 disorder, mixed F31.60 [place] [address] [address] October, Bipolar 1 disorder, mixed F31.60 [place] [address] [address] October, Bipolar 1 disorder, mixed F31.60 [place] [address] [address] October, Cervicalgia M54.2 and Bipolar 1 disorder , mixed F31.60 [place] [address] [address] October, Hypertension I10 ; Hyperlipidemia, unspe cified hyperlipidemia type E78.5 and Family history of thyroid disease Z83.49 [place] [address] [address] October, [place] [address] [address] October, Hypertension I10 ; Hyperlipidemia, unspe cified hyperlipidemia type E78.5 and Family history of thyroid problem Z83.49 [place] [address] [address] October, Bipolar 1 disorder, mixed F31.60 [place] [address] [address] Sep, Bipolar 1 disorder, mixed F31.60 [place] [address] [address] Sep, Bipolar 1 disorder, mixed F31.60 [place] [address] [address] Sep, Bipolar 1 disorder, mixed F31.60 [place] [address] [address] Sep, History of colon polyps Z86.010 and Thomas tochezia K92.1 [place] [address] [address] Sep, Major depressive disorder, recurrent epi sode, moderate F33.1 [place] [address] [address] Sep, Bipolar 1 disorder, mixed F31.60 [place] [address] [address] Aug, Hot flashes due to menopause N95.1 [place] [address] [address] Aug, Bipolar 1 disorder, mixed F31.60 [place] [address] [address] Aug, [place] [address] [address] Aug, Bipolar 1 disorder, mixed F31.60 [place] [address] [address] Aug, Bipolar 1 disorder, mixed F31.60 [place] [address] [address] Aug, Hot flashes due to menopause N95.1 ; Cer vicalgia M54.2 and Ataxia R27.0 [place] [address] [address] Jul, Bipolar 1 disorder, mixed F31.60 [place] [address] [place] [address] Jul, Bipolar 1 disorder, mixed F31.60 [place] [address] [address] Jul, Bipolar 1 disorder, mixed F31.60 [place] [address] [address] Jul, Bipolar 1 disorder, mixed F31.60 [place] [address] [address] Jul, Bipolar 1 disorder, mixed F31.60 [place] [address] [address] Jul, Cervicalgia M54.2 ; Tremor R25.1 ; Heari ng abnormally acute, unspecified laterality H93.239 ; Alopecia L65.9 ; Encounter for immunization Z23 and Family history of thyroid disease Z83.49 [place] [address] [address] Jul, Bipolar 1 disorder, mixed F31.60 [place] [address] [place] [id number] Jun, [place] [address] [address] Jun, Hearing disorder, unspecified laterality H93.299 [facility] [address] [place] [id number] [place] [address] Jun, Bipolar 1 disorder, mixed F31.60 [facility] [address] [place] [id number] [place] [address] Jun, Bipolar 1 disorder, mixed F31.60 [facility] [address] [address] Jun, Allergic rhinitis J30.9 [facility] [address] [place] [id number] [place] [address] Jun, Bipolar 1 disorder, mixed F31.60 [facility] [address] [address] Jun, Bipolar 1 disorder, mixed F31.60 [facility] [address] [place] [id number] [place] [address] Jun, Allergic rhinitis J30.9 [facility] [address] [address] Jun, Allergic rhinitis J30.9 [facility] [address] [address] Jun, Bipolar 1 disorder, mixed F31.60 [facility] [address] [address] May, Bipolar 1 disorder, mixed F31.60 [facility] [address] [place] [id number] [place] [address] May, Bipolar 1 disorder, mixed F31.60 [facility] [address] [place] [id number] [place] [address] May, [facility] [address] [place] [id number] [place] [address] May, Bipolar 1 disorder, mixed F31.60 [facility] [address] [place] [id number] [place] [address] May, Bipolar 1 disorder, mixed F31.60 [facility] [address] [address] May, [facility] [address] [address] May, [facility] [address] [address] May, [facility] [address] [address] May, Abdominal pain, unspecified location R10 .9 [facility] [address] [address] May, [place] [address] [address] Apr, Hematuria R31.9 ; Ataxia R27.0 and Heari ng loss, unspecified laterality H91.90 [place] [address] [address] Apr, Bipolar 1 disorder, mixed F31.60 [facility] [address] [facility] [id number] [address] [place] [address] Apr, Acute effusion of both middl e ears H65.193 [place] [address] [address] Apr, Hematuria R31.9 and Pyelonephritis N12 [facility] [address] [address] Apr, [facility] [address] [address] Mar, Bipolar 1 disorder, mixed F31.60 [facility] [address] [address] Mar, [facility] [address] [address] Mar, Bipolar 1 disorder, mixed F31.60 [facility] [address] [address] Mar, Bipolar 1 disorder, mixed F31.60 [place] [address] [address] Mar, Encounter for immunization Z23 and Gastr itis without bleeding, unspecified chronicity, unspecified gastritis type K29.70 [place] [address] [address] Mar, Bipolar 1 disorder, mixed F31.60 and Gri ef F43.20 [place] [address] [address] Mar, Gastritis without bleeding, unspecified chronicity, unspecified gastritis type K29.70 [place] [address] [address] Mar, Bipolar 1 disorder, mixed F31.60 [place] [address] [address] Mar, Gastritis without bleeding, unspecified chronicity, unspecified gastritis type K29.70 [place] [address] [address] Mar, [place] [address] [address] Feb, Bipolar 1 disorder, mixed F31.60 [place] [address] [address] Feb, Bipolar 1 disorder, mixed F31.60 and Gri ef F43.20 [place] [address] [address] Feb, Gastritis without bleeding, unspecified chronicity, unspecified gastritis type K29.70 [place] [address] [address] 14 Feb, 2016 Bipolar 1 disorder, mixed F31.60 [facility] [address] [facility] [id number] [address] [place] [address] 09 Feb, 2016 Gastroesophageal reflux dise ase, esophagitis presence not specified K21.9 [place] [address] [address] Jan, Bipolar 1 disorder, mixed F31.60 [place] [address] [address] Jan, Bipolar 1 disorder, mixed F31.60 and Uns teady gait R26.81 [place] [address] [address] Jan, Bipolar 1 disorder, mixed F31.60 [place] [address] [address] Jan, Bipolar 1 disorder, mixed F31.60 and Oth er fci (current) drug therapy Z79.899 [place] [address] [address] Jan, Bipolar 1 disorder, mixed F31.60 [place] [address] [address] Jan, Bipolar 1 disorder, mixed F31.60 [place] [address] [address] Jan, Bipolar 1 disorder, mixed F31.60 ; Grief F43.20 and Other fci (current) drug therapy Z79.899 [place] [address] [address] Jan, Bipolar 1 disorder, mixed F31.60 [place] [address] [address] Dec, [place] [address] [address] Dec, Bipolar 1 disorder, mixed F31.60 ; Vitam in D deficiency, unspecified E55.9 ; H/O allergic rhinitis Z87.09 ; Other chronic pain G89.29 and Dorsalgia, unspecified M54.9 [place] [address] [address] Dec, [place] [address] [address] Dec, Bipolar 1 disorder, mixed F31.60 [place] [address] [address] Dec, Major depressive disorder, recurrent epi sode, moderate F33.1 [place] [address] [address] Dec, Major depressive disorder, recurrent epi sode, moderate F33.1 [place] [address] [address] Nov, [place] [address] [address] Nov, Bipolar 1 disorder, mixed F31.60 [place] [address] [address] Nov, Major depressive disorder, recurrent epi sode, moderate F33.1 [place] [address] [address] Nov, Cervicalgia M54.2 ; Arthralgia of hip, u nspecified laterality M25.559 ; Allergic rhinitis J30.9 and Hormone replacement therapy Z79.890 [facility] [address] [facility] [id number] [address] [place] [address] Nov, Other seasonal allergic rhin itis J30.2 [place] [address] [address] October, Major depressive disorder, recurrent epi sode, moderate F33.1 [place] [address] [address] October, Major depressive disorder, recurrent epi sode, moderate F33.1 and Arthralgia of hip, unspecified laterality M25.559 [place] [address] [address] October, Grief F43.20 ; Hypertension I10 ; Hyperl ipidemia, unspecified hyperlipidemia type E78.5 ; Other chronic pain G89.29 and Allergic rhinitis, unspecified allergic rhinitis type J30.9 [place] [address] [address] October, Major depressive disorder, recurrent epi sode, moderate F33.1 [place] [address] [address] Sep, Major depressive disorder, recurrent epi sode, moderate F33.1 [place] [address] [address] Sep, [place] [address] [address] Sep, Major depressive disorder, recurrent epi sode, moderate F33.1 [place] [address] [address] Sep, Grief F43.20 [place] [address] [address] 30 Aug, 2015 Major depressive disorder, recurrent epi sode, moderate F33.1 [place] [address] [address] 24 Aug, 2015 Bipolar 1 disorder, mixed F31.60 [place] [address] [address] Aug, Allergic rhinitis J30.9 ; Cervicalgia M5 4.2 and Low back pain M54.5 [place] [address] [address] Aug, Major depressive disorder, recurrent epi sode, moderate F33.1 [facility] [address] [facility] [id number] [address] [place] [address] Aug, Sinusitis J32.9 and Tobacco dependence F17.200 [place] [address] [address] Aug, [place] [address] [address] Aug, Depressive disorder, not elsewhere class ified F32.9 ; Hormone replacement therapy Z79.[address] scan, head R93.0 [facility] [address] [address] Aug, Major depressive disorder, recurrent epi sode, moderate F33.1 [facility] [address] [address] Jul, Major depressive disorder, recurrent epi sode, moderate F33.1 [place] [address] [address] Jul, Abdominal pain R10.9 and Hypertension I1 0 [place] [address] [address] Jul, [place] [address] [address] Jul, Major depressive disorder, recurrent epi sode, moderate F33.1 [place] [address] [address] Jul, [facility] [address] [place] [address] Jul, [facility] [address] [address] Jun, [place] [address] [place] [id number] Jun, Depressive disorder, not elsewhere class ified F32.9 [place] [address] [address] Jun, [facility] [address] [address] Jun, [facility] [address] [place] [id number] Jun, Arthralgia of hip, unspecified lateralit y M25.559 ; Bruising, spontaneous R23.3 and Night sweats R61 [facility] [address] [place] [id number] [place] [address] Jun, [facility] [address] [address] Jun, [facility] [address] [place] [id number] [place] [address] May, [facility] [address] [address] May, Myalgia M79.1 and Screening, lipid Z13.2 20 [facility] [address] [address] Apr, Status post cervical spinal fusion Z98.1 ; Fibromyalgia M79.7 and Unsteady gait R26.81 [facility] [address] [address] Nov, [facility] [address] [address] Nov, [facility] [address] [address] October, [facility] [address] [address] October, [facility] [address] [address] October, [facility] [address] [address] October, [facility] [address] [address] October, [facility] [address] [address] October, Dysuria 788.1 ; Nausea 787.02 and Urinar y tract infection 599.0 [facility] [address] [id number] [place] [address] Sep, [facility] [address] [address] 13 Sep, 2014 [facility] [place] [facility] [address] [facility] [id number] [facility] [address] 25 Aug, 2014 [facility] [place] [facility] [address] [facility] [id number] [facility] [address] 25 Aug, 2014 [facility] [place] [facility] [address] [id number] [facility] [address] 24 Aug, 2014 [facility] [place] [facility] [address] [id number] [place] [address] 24 Aug, 2014 [facility] [place] [facility] [address] [facility] [id number] [facility] [address] 23 Aug, 2014 [facility] [place] [facility] [address] [id number] [facility] [address] 19 Aug, 2014 [facility] [place] [facility] [address] [id number] [place] [address] 19 Aug, 2014 [facility] [place] [facility] [address] [id number] [facility] [address] 19 Aug, 2014 [facility] [place] [facility] [address] [id number] [facility] [address] 19 Aug, 2014 [facility] [place] [facility] [address] [id number] [place] [address] 18 Aug, 2014 [facility] [place] [facility] [address] [id number] [place] [address] 18 Aug, 2014 [facility] [place] [facility] [address] [id number] [place] [address] 13 Aug, 2014 [facility] [place] [facility] [address] [facility] [id number] [facility] [address] 13 Aug, 2014 [facility] [place] [facility] [address] [id number] [place] [address] 11 Aug, 2014 [facility] [place] [facility] [address] [id number] [place] [address] 11 Aug, 2014 [facility] [place] [facility] [address] [id number] [place] [address] 06 Aug, 2014 [facility] [place] [facility] [address] [id number] [place] [address] Aug, 2014 [facility] [place] [facility] [address] [id number] [place] [address] Aug, [facility] [place] [facility] [address] [id number] [place] [address] Aug, [facility] [place] [facility] [address] [id number] [place] [address] Aug, [facility] [place] [facility] [address] [id number] [place] [address] Aug, [facility] [place] [facility] [address] [id number] [place] [address] Aug, [facility] [place] [facility] [address] [id number] [place] [address] Jul, 2014 [facility] [place] [facility] [address] [id number] [place] [address] Jul, 2014 [facility] [place] [facility] [address] [id number] [place] [address] Jul, 2014 [facility] [place] [facility] [address] [id number] [place] [address] Jul, 2014 [facility] [place] [facility] [address] [id number] [place] [address] Jul, 2014 [facility] [place] [facility] [address] [id number] [place] [address] Jul, 2014 [facility] [place] [facility] [address] [id number] [place] [address] Jul, 2014 [facility] [place] [facility] [address] [id number] [place] [address] Jul, 2014 [facility] [place] [facility] [address] [id number] [place] [address] Jul, 2014 [facility] [place] [facility] [address] [id number] [place] [address] Jul, 2014 [facility] [place] [facility] [address] [id number] [place] [address] Jul, 2014 [facility] [place] [facility] [address] [id number] [place] [address] Jul, [facility] [place] [facility] [address] [id number] [place] [address] Jul, [facility] [place] [facility] [address] [id number] [place] [address] Jul, [facility] [place] [facility] [address] [id number] [place] [address] Jun, [facility] [place] [facility] [address] [id number] [place] [address] Jun, [facility] [place] [facility] [address] [place] [id number] [place] [address] Jun, [facility] [place] [facility] [address] [id number] [place] [address] Jun, [facility] [place] [facility] [id number] [place] [address] Jun, [facility] [place] [facility] [address] [id number] [place] [address] Jun, [facility] [place] [facility] [id number] [place] [address] May, [facility] [place] [facility] [address] [id number] [place] [address] May, [facility] [place] [facility] [address] [place] [id number] [place] [address] May, [facility] [place] [facility] [address] [id number] [place] [address] May, [facility] [place] [facility] [id number] [place] [address] May, [facility] [place] [facility] [address] [id number] [place] [address] May, [facility] [place] [facility] [address] [id number] [place] [address] Apr, [facility] [place] [facility] [address] [id number] [place] [address] Apr, [facility] [place] [facility] [address] [id number] [place] [address] Apr, [facility] [place] [facility] [address] [id number] [place] [address] Apr, [facility] [place] [facility] [address] [id number] [place] [address] Apr, [facility] [place] [facility] [address] [id number] [place] [address] Apr, [facility] [place] [facility] [address] [id number] [place] [address] Mar, [facility] [place] [facility] [address] [id number] [place] [address] Mar, [facility] [place] [facility] [address] [id number] [place] [address] Mar, [facility] [place] [facility] [address] [id number] [place] [address] Mar, [facility] [place] [facility] [address] [id number] [place] [address] Mar, [facility] [place] [facility] [address] [id number] [place] [address] Mar, [facility] [place] [facility] [address] [id number] [place] [address] Mar, [facility] [place] [facility] [address] [id number] [place] [address] Mar, [facility] [place] [facility] [address] [id number] [place] [address] Mar, [facility] [place] [facility] [address] [id number] [place] [address] Mar, [facility] [place] [facility] [address] [id number] [place] [address] Mar, [facility] [place] [facility] [address] [id number] [place] [address] Mar, [facility] [place] [facility] [address] [id number] [facility] [address] 30 Feb, 2013 [facility] [place] [facility] [address] [facility] [id number] [place] [address] 29 Feb, 2014 [facility] [place] [facility] [address] [facility] [id number] [facility] [address] 29 Feb, 2014 [facility] [place] [facility] [address] [id number] [place] [address] Feb, [facility] [place] [facility] [address] [facility] [id number] [place] [address] Feb, [facility] [place] [facility] [address] [id number] [place] [address] 08 Feb, 2014 [facility] [place] [facility] [address] [id number] [facility] [address] 08 Feb, 2014 [facility] [place] [facility] [address] [id number] [facility] [address] Jan, [facility] [place] [facility] [address] [facility] [id number] [place] [address] Jan, [facility] [place] [facility] [address] [id number] [facility] [place] [address] Jan, [facility] [place] [facility] [address] [id number] [place] [address] Dec, [facility] [place] [facility] [address] [id number] [place] [address] Dec, [facility] [place] [facility] [address] [facility] [id number] [facility] [place] [address] Dec, [facility] [place] [facility] [address] [facility] [id number] [facility] [place] [address] Dec, [facility] [place] [facility] [address] [id number] [place] [address] Sep, [facility] [place] [facility] [address] [id number] [facility] [address] Sep, [facility] [place] [facility] [address] [id number] [place] [address] Sep, [facility] [place] [facility] [address] [id number] [place] [address] Sep, [facility] [place] [facility] [address] [id number] [place] [address] Sep, [facility] [place] [facility] [address] [id number] [place] [address] Sep, [facility] [place] [facility] [address] [id number] [place] [address] Sep, [facility] [place] [facility] [address] [id number] [place] [address] Sep, [facility] [place] [facility] [address] [id number] [place] [address] Aug, [facility] [place] [facility] [address] [id number] [place] [address] Aug, [facility] [place] [facility] [address] [id number] [place] [address] May, [facility] [place] [facility] [address] [id number] [place] [address] May, [facility] [place] [facility] [address] [id number] [place] [address] Apr, [facility] [place] [facility] [address] [id number] [place] [address] Apr, [facility] [place] [facility] [address] [id number] [place] [address] Apr, [facility] [place] [facility] [address] [id number] [place] [address] Apr, [facility] [place] [facility] [id number] [place] [address] Apr, [facility] [place] [facility] [address] [id number] [place] [address] Apr, [facility] [place] [facility] [address] [id number] [place] [address] May, [facility] [place] [facility] [address] [id number] [place] [address] 18 May, 2012 [facility] [place] [facility] [address] [id number] [place] [address] 15 May, 2012 [facility] [place] [facility] [address] [id number] [place] [address] 15 May, 2012 [facility] [place] [facility] [address] [id number] [place] [address] 13 May, 2012 [facility] [place] [facility] [address] [id number] [place] [address] 13 May, 2012 [facility] [place] [facility] [address] [id number] [place] [address] 13 Apr, 2012 [facility] [place] [facility] [address] [id number] [place] [address] 13 Apr, 2012 [facility] [place] [facility] [id number] [place] [address] 08 Apr, 2012 [facility] [place] [facility] [address] [id number] [place] [address] 08 Apr, 2012 [facility] [place] [facility] [address] [id number] [place] [address] Apr, [facility] [place] [facility] [address] [id number] [place] [address] Apr, [facility] [place] [facility] [address] [id number] [place] [address] Apr, [facility] [place] [facility] [address] [id number] [place] [address] Apr, [facility] [place] [facility] [address] [id number] [place] [address] Apr, [facility] [place] [facility] [id number] [place] [address] Apr, [facility] [place] [facility] [address] [id number] [place] [address] Mar, [facility] [place] [facility] [address] [id number] [place] [address] Mar, [facility] [facility] [address] [facility] [id number] [facility] [place] [address] Mar, [facility] [address] [facility] [id number] [facility] [place] [address] Mar, [facility] [address] [id number] [place] [address] Mar, [facility] [address] [id number] [facility] [place] [address] Mar, [facility] [address] [facility] [id number] [facility] [place] [address] Mar, [facility] [address] [id number] [place] [address] Mar, [facility] [address] [id number] [place] [address] Mar, [facility] [address] [id number] [place] [address] Feb, [facility] [address] [id number] [place] [address] 16 Feb, 2012 [facility] [address] [id number] [place] [address] Feb, [facility] [address] [id number] [place] [address] Jan, [facility] [address] [id number] [place] [address] Jan, [facility] [address] [id number] [place] [address] Jan, [facility] [address] [id number] [place] [address] Jan, [facility] [address] [id number] [place] [address] Jan, [facility] [address] [id number] [place] [address] Jan, [facility] [address] [id number] [place] [address] Jan, [facility] [address] [id number] [facility] [address] Jan, [facility] [address] [id number] [place] [address] Jan, [facility] [address] [id number] [place] [address] Jan, [facility] [address] [id number] [place] [address] Dec, [facility] [address] [facility] [id number] [facility] [address] Dec, [facility] [address] [id number] [place] [address] Dec, [facility] [address] [id number] [place] [address] Dec, [facility] [address] [id number] [place] [address] Nov, [facility] [address] [id number] [place] [address] Nov, [facility] [address] [id number] [place] [address] Nov, [facility] [address] [id number] [place] [address] October, [facility] [address] [id number] [place] [address] October, [facility] [address] [id number] [place] [address] October, [facility] [address] [id number] [place] [address] October, [facility] [address] [id number] [place] [address] October, [facility] [address] [id number] [place] [address] October, [facility] [address] [id number] [place] [address] Aug, [facility] [address] [address] Mar, [facility] [address] [address] Nov, [facility] [address] [address] May, [facility] [address] [address] May, [facility] [address] [address] Apr, [facility] [address] [address] Mar, [facility] [address] [address] Mar, IMMUNIZATIONS No Known Immunizations SOCIAL HISTORY Never Assessed REASON FOR VISIT f/u PLAN OF CARE Activity Details Follow Up 1 Week Reason: F/U VITAL SIGNS MEDICATIONS Unknown Medications RESULTS No Results PROCEDURES Procedure Date Ordered Result Body Site Psychotherapy, patient and family, 45 minutes, daniele donaldson patient September 10, 2018 [facility] VISIT MENTAL HEALTH ESTAB PT September 10, 2018 INSTRUCTIONS MEDICATIONS ADMINISTERED No Known Medications [...]
--- OUTSIDE RECORDS SUMMARY | 2020-02-02 19:46 | XMS REPORT ---
Author Author Sydnie STEPHENSON Organization [facility] Address [address] [place] [address] Care Team Providers Care Cow Trimmer Name Role Phone DAVEY STEPHENSON Unavailable PROBLEMS Type Condition ICD9-CM Code [id number] Code Onset Dates Condition S tatus SNOMED Code Problem Sensorineural hearing loss (SNHL) of both ears H90 .3 Active 804998353 Problem Night sweats R61 Active 8222450 0 Problem Bruising, spontaneous R23.3 Active 164209161 Problem Hypertension I10 Active 1398201 3 Problem Arthralgia of hip, unspecified laterality M25.559 Active 80013560 Problem Other chronic pain G89.29 Active 8 0664808 Problem Grief F43.20 Active 38639443 Problem Fibromyalgia M79.7 Active 6941355 7 Problem Hormone replacement therapy Z79.890 Ac tive 717844915 Problem Major depressive disorder, recurrent episode, moderate F33.1 Active 522792461 Problem Abnormal CT scan, head R93.0 Active 057898923 Problem Age-related osteoporosis without current pathological fracture M81.0 Active 89833977 Problem Hearing loss, unspecified laterality H91.90 Active 22722598 Problem Ataxia R27.0 Active 58976034 Problem History of colon polyps Z86.010 Active 380367145 Problem Allergic rhinitis J30.9 Active 61 761162 Problem Hematuria, unspecified type R31.9 Ac tive 25955261 Problem Generalized anxiety disorder F41.1 A ctive 97097254 Problem Imbalance R26.89 Active 446030795 Problem Hammer toe of right foot M20.41 Activ e 847871898 Problem Bladder spasm N32.89 Active 261207 006 Problem Acute left-sided low back pain with left-sided sciatica M54.42 Active 445487423 Problem Sciatica of left side M54.32 Active 88454035 Problem Sciatica of right side M54.31 Active 74068107 Problem Gastritis without bleeding, unspecified chronicity, unspecified gastritis type K29.70 Active 724926873 Problem Hearing loss, unspecified hearing loss type, uns pecified laterality H91.90 Active 47776233 Problem Hyperlipidemia, unspecified hyperlipidemia type E7 8.5 Active 11739114 Problem Bipolar 1 disorder, mixed F31.60 Acti ve 71259398 Problem Plantar wart of right foot B07.0 Act mitchell [id number] Problem Slow transit constipation K59.01 Acti ve 57057445 Problem Tobacco use disorder F17.200 Active 182801625 Problem Post menopausal syndrome N95.1 Activ e 114605494 ALLERGIES No Information ENCOUNTERS Encounter Location Date Diagnosis [place] [address] [address] 07 Sep, 2019 [place] [address] [address] Aug, [place] [address] [address] Jul, [place] [address] [address] Jul, Bipolar 1 disorder, mixed F31.60 [place] [address] [address] 07 Jul, 2019 [place] [address] [address] Jul, Tobacco use disorder F17.200 [place] [address] [address] 15 Jun, 2019 Bipolar 1 disorder, mixed F31.60 [place] [address] [address] Jun, Bipolar 1 disorder, mixed F31.60 ; Gener alized anxiety disorder F41.1 and Tobacco use disorder F17.200 [place] [address] [address] 06 Jun, 2019 Tobacco use disorder F17.200 [place] [address] [address] May, [facility] [address] [address] May, Compression fracture of L1 vertebra with routine healing, subsequent encounter S32.010D [facility] [address] [address] May, [facility] [address] [address] May, [facility] [address] [address] May, [facility] [address] [address] May, [facility] [address] [address] May, [facility] [address] [address] May, [facility] [address] [address] May, [facility] [address] [address] May, Bipolar 1 disorder, mixed F31.60 [place] [address] [address] May, Closed fracture of right upper extremity with routine healing, subsequent encounter S42.301D and Hearing loss, unspecified hearing loss type, unspecified laterality H91.90 [facility] [address] [address] May, [facility] [address] [address] Apr, Allergic rhinitis J30.9 ; Abdominal pain , unspecified location R10.9 and Seborrheic keratosis L82.1 [facility] [address] [address] Mar, Bipolar 1 disorder, mixed F31.60 [facility] [address] [address] Mar, Bipolar 1 disorder, mixed F31.60 ; Gener alized anxiety disorder F41.1 and Tobacco use disorder F17.200 [place] [address] [address] Feb, Excessive gas R14.3 ; Other chronic pain G89.29 ; Encounter for immunization Z23 ; Hyperlipidemia, unspecified hyperlipidemia type E78.5 ; Bipolar 1 disorder, mixed F31.60 and Other shelter (current) drug therapy Z79.899 [place] [address] [address] Feb, Bipolar 1 disorder, mixed F31.60 [place] [address] [address] Jan, Sciatica of right side M54.31 ; Low back pain M54.5 and Major depressive disorder, recurrent episode, moderate F33.1 [place] [address] [address] Jan, Bipolar 1 disorder, mixed F31.60 [place] [address] [address] Dec, Normal pelvic exam Z01.419 [place] [address] [address] Dec, Bipolar 1 disorder, mixed F31.60 [place] [address] [address] Nov, Bipolar 1 disorder, mixed F31.60 [place] [address] [address] Nov, Bipolar 1 disorder, mixed F31.60 ; Gener alized anxiety disorder F41.1 ; Tobacco use disorder F17.200 and Other shelter (current) drug therapy Z79.899 [place] [address] [address] Nov, [place] [address] [address] Nov, Bipolar 1 disorder, mixed F31.60 [place] [address] [address] October, Bipolar 1 disorder, mixed F31.60 [place] [address] [address] October, Bipolar 1 disorder, mixed F31.60 [place] [address] [address] October, [place] [address] [address] October, Bipolar 1 disorder, mixed F31.60 ; Gener alized anxiety disorder F41.1 and Tobacco use disorder F17.200 [place] [address] [address] Sep, [place] [address] [address] Sep, Encounter for Medicare annual wellness e xam Z00.00 ; Major depressive disorder, recurrent episode, moderate F33.1 ; Allergic rhinitis J30.9 ; Bipolar 1 disorder, mixed F31.60 ; Fibromyalgia M79.7 ; Hyperlipidemia, unspecified hyperlipidemia type E78.5 ; Hormone replacement therapy Z79.890 ; Encounter for screening for lung cancer Z12.2 and Tobacco use disorder F17.200 [place] [address] [address] Sep, Bipolar 1 disorder, mixed F31.60 [place] [address] [address] Sep, Other chronic pain G89.29 ; Hyperlipidem ia, unspecified hyperlipidemia type E78.5 ; Breast cancer screening Z12.31 and Post menopausal syndrome N95.1 [place] [address] [address] Sep, Bipolar 1 disorder, mixed F31.60 [place] [address] [address] 15 Sep, 2018 Bipolar 1 disorder, mixed F31.60 ; Gener alized anxiety disorder F41.1 and Tobacco use disorder F17.200 [place] [address] [address] Sep, Gastritis without bleeding, unspecified chronicity, unspecified gastritis type K29.70 [place] [address] [address] Sep, Exercise counseling Z71.82 [place] [address] [address] Aug, Exercise counseling Z71.82 [place] [address] [address] Aug, Bipolar 1 disorder, mixed F31.60 [place] [address] [address] Aug, Exercise counseling Z71.82 [place] [address] [address] Aug, Bipolar 1 disorder, mixed F31.60 [place] [address] [address] Aug, Gastritis without bleeding, unspecified chronicity, unspecified gastritis type K29.70 ; Tobacco abuse Z72.0 ; Generalized anxiety disorder F41.1 and Weight gain R63.5 [place] [address] [address] Aug, Bipolar 1 disorder, mixed F31.60 ; Gener alized anxiety disorder F41.1 and Tobacco use disorder F17.200 [place] [address] [address] Jul, Bipolar 1 disorder, mixed F31.60 [place] [address] [address] Jul, [place] [address] [address] Jul, Bipolar 1 disorder, mixed F31.60 [place] [address] [address] 11 Jul, 2018 Allergic rhinitis J30.9 ; Major depressi ve disorder, recurrent episode, moderate F33.1 and Tobacco dependence F17.200 [place] [address] [address] Jun, [place] [address] [address] Jun, [place] [address] [address] Jun, Bipolar 1 disorder, mixed F31.60 [place] [address] [address] Jun, Bipolar 1 disorder, mixed F31.60 [place] [address] [address] Jun, Bipolar 1 disorder, mixed F31.60 [place] [address] [address] Jun, Generalized anxiety disorder F41.1 ; Tob acco abuse Z72.0 and Major depressive disorder, recurrent episode, moderate F33.1 [place] [address] [address] May, Bipolar 1 disorder, mixed F31.60 [place] [address] [address] May, Bipolar 1 disorder, mixed F31.60 and Gen eralized anxiety disorder F41.1 [place] [address] [address] May, Bipolar 1 disorder, mixed F31.60 [place] [address] [address] May, Allergic rhinitis J30.9 [place] [address] [address] May, Bipolar 1 disorder, mixed F31.60 [facility] [address] [address] May, [facility] [address] [address] Apr, Allergic rhinitis J30.9 ; Dysfunction of both eustachian tubes H69.83 ; History of bladder surgery Z98.890 and Cervicalgia M54.2 [place] [address] [address] Mar, Bipolar 1 disorder, mixed F31.60 [place] [address] [address] Mar, [place] [address] [address] Mar, Slow transit constipation K59.01 ; Encou nter for immunization Z23 and Generalized anxiety disorder F41.1 [place] [address] [address] Feb, Bipolar 1 disorder, mixed F31.60 [place] [address] [address] Feb, Allergic rhinitis J30.9 [place] [address] [address] 24 Feb, 2018 Bipolar 1 disorder, mixed F31.60 [place] [address] [address] 20 Feb, 2018 Bipolar 1 disorder, mixed F31.60 and Gen eralized anxiety disorder F41.1 [place] [address] [address] 13 Feb, 2018 Bipolar 1 disorder, mixed F31.60 [place] [address] [address] 11 Feb, 2018 Allergic rhinitis J30.9 [facility] [address] [address] 05 Feb, 2018 [place] [address] [address] Jan, Bipolar 1 disorder, mixed F31.60 [place] [address] [place] [address] Jan, Low back pain M54.5 ; Hyperlipidemia, un specified hyperlipidemia type E78.5 and Bipolar 1 disorder, mixed F31.60 [place] [address] [address] Jan, Bipolar 1 disorder, mixed F31.60 [place] [address] [address] Jan, Bipolar 1 disorder, mixed F31.60 [place] [address] [address] Jan, Bipolar 1 disorder, mixed F31.60 [place] [address] [address] Jan, Bipolar 1 disorder, mixed F31.60 [place] [address] [address] Dec, Bipolar 1 disorder, mixed F31.60 ; Gener alized anxiety disorder F41.1 and Other intermission coordinator (current) drug therapy Z79.899 [place] [address] [address] Dec, Other intermission coordinator (current) drug therapy Z 79.899 [place] [address] [address] Dec, Bipolar 1 disorder, mixed F31.60 [place] [address] [address] Dec, Bipolar 1 disorder, mixed F31.60 [place] [address] [address] Nov, Bipolar 1 disorder, mixed F31.60 [place] [address] [address] Nov, Bipolar 1 disorder, mixed F31.60 [facility] [address] [address] Nov, Bipolar 1 disorder, mixed F31.60 [facility] [address] [address] Nov, Allergic rhinitis J30.9 [facility] [address] [address] Nov, Allergic rhinitis J30.9 [facility] [address] [address] Nov, [place] [address] [address] Nov, Bipolar 1 disorder, mixed F31.60 [place] [address] [address] Nov, Fibromyalgia M79.7 and Allergic rhinitis J30.9 [place] [address] [address] October, Bipolar 1 disorder, mixed F31.[address] [facility] [address] [address] October, Acute nasopharyngitis J00 [facility] [place] [address] [address] October, Bitten or stung by nonvenomo us insect and other nonvenomous arthropods, initial encounter W57.XXXA and Insect bite (nonvenomous) of abdominal wall, initial encounter S30.861A [place] [address] [address] October, Insect bite (nonvenomous) of abdominal w all, initial encounter S30.861A ; Bitten or stung by nonvenomous insect and other nonvenomous arthropods, initial encounter W57.XXXA ; Allergic rhinitis J30.9 and Low back pain M54.5 [place] [address] [address] October, Bipolar 1 disorder, mixed F31.60 [facility] [address] [address] October, [facility] [address] [address] October, [facility] [address] [address] October, Bipolar 1 disorder, mixed F31.60 [place] [address] [address] Sep, Bipolar 1 disorder, mixed F31.60 [place] [address] [address] Sep, Other chronic pain G89.29 [place] [address] [address] Sep, [place] [address] [address] Sep, Bipolar 1 disorder, mixed F31.60 [place] [address] [address] Sep, Allergic rhinitis J30.9 and Sciatica of left side M54.32 [place] [address] [address] Sep, Bipolar 1 disorder, mixed F31.60 [place] [address] [address] Sep, Bipolar 1 disorder, mixed F31.60 and Gen eralized anxiety disorder F41.1 [place] [address] [address] Aug, [place] [address] [address] Aug, Bipolar 1 disorder, mixed F31.60 [facility] [address] [address] Aug, Bipolar 1 disorder, mixed F31.60 [facility] [address] [address] Aug, [facility] [address] [address] Aug, Generalized anxiety disorder F41.1 [facility] [address] [address] Aug, Bipolar 1 disorder, mixed F31.60 [facility] [address] [address] Aug, Plantar wart of right foot B07.0 [facility] [address] [address] Aug, Bipolar 1 disorder, mixed F31.60 [place] [address] [address] Jul, Bipolar 1 disorder, mixed F31.60 [place] [address] [address] Jul, [facility] [address] [address] Jul, Bipolar 1 disorder, mixed F31.60 [facility] [address] [address] Jul, Generalized anxiety disorder F41.1 [facility] [address] [address] Jul, Bipolar 1 disorder, mixed F31.60 [facility] [address] [address] Jul, Acute left-sided low back pain with left -sided sciatica M54.42 [facility] [address] [address] 05 Jul, 2017 Coccydynia M53.3 [facility] [address] [address] Jun, Bipolar 1 disorder, mixed F31.[address] [facility] [address] [place] [id number] [place] [address] Jun, Acute nasopharyngitis J00 [place] [address] [address] Jun, Bipolar 1 disorder, mixed F31.60 [place] [address] [address] Jun, Fibromyalgia M79.7 [place] [address] [address] Jun, Bipolar 1 disorder, mixed F31.60 [place] [address] [address] Jun, Fibromyalgia M79.7 and Bipolar 1 disorde r, mixed F31.60 [place] [address] [address] May, Bipolar 1 disorder, mixed F31.60 ; Gener alized anxiety disorder F41.1 and Other shelter (current) drug therapy Z79.899 [place] [address] [address] May, Bipolar 1 disorder, mixed F31.60 [facility] [address] [place] [id number] [place] [address] May, Cough R05 and Body aches R52 [facility] [address] [address] May, Bladder spasm N32.89 and Acu te cystitis without hematuria N30.00 [place] [address] [address] May, Bipolar 1 disorder, mixed F31.60 [facility] [address] [address] Apr, [place] [address] [address] Apr, Major depressive disorder, recurrent epi sode, moderate F33.1 and Encounter for immunization Z23 [place] [address] [place] [address] Apr, Bipolar 1 disorder, mixed F31.60 [facility] [address] [place] [address] Apr, Bipolar 1 disorder, mixed F31.60 [place] [address] [place] [address] Apr, Bipolar 1 disorder, mixed F31.60 [place] [address] [address] Apr, Yeast vaginitis B37.3 [place] [address] [address] Apr, Bipolar 1 disorder, mixed F31.60 [facility] [address] [facility] [id number] [place] [address] Apr, Cellulitis L03.[address] for immunization Z23 [place] [address] [address] Apr, Bipolar 1 disorder, mixed F31.60 [place] [address] [place] [address] Mar, Bipolar 1 disorder, mixed F31.60 [place] [address] [place] [address] Mar, Bipolar 1 disorder, mixed F31.60 [facility] [address] [address] Mar, Imbalance R26.89 and Encounter for immun ization Z23 [place] [address] [place] [address] Mar, Generalized anxiety disorder F41.1 [place] [address] [address] Mar, Bipolar 1 disorder, mixed F31.60 [place] [address] [address] Mar, Generalized anxiety disorder F41.1 [place] [address] [address] Mar, Bipolar 1 disorder, mixed F31.60 [place] [address] [address] Mar, Bipolar 1 disorder, mixed F31.60 [place] [address] [address] Feb, Bipolar 1 disorder, mixed F31.60 [place] [address] [address] Feb, Bipolar 1 disorder, mixed F31.60 and Gen eralized anxiety disorder F41.1 [place] [address] [address] Feb, Gastritis without bleeding, unspecified chronicity, unspecified gastritis type K29.70 ; Hammer toe of right foot M20.41 and Other viral warts B07.8 [place] [address] [address] Feb, Bipolar 1 disorder, mixed F31.60 [place] [address] [address] Feb, Bipolar 1 disorder, mixed F31.60 [place] [address] [address] 05 Feb, 2017 Bipolar 1 disorder, mixed F31.60 [place] [address] [address] Jan, Encounter for screening mammogram for br east cancer Z12.31 ; Other viral warts B07.8 and Allergic rhinitis J30.9 [place] [address] [address] Jan, Bipolar 1 disorder, mixed F31.60 [place] [address] [address] Jan, Bipolar 1 disorder, mixed F31.60 [place] [address] [address] Jan, [facility] [address] [address] Jan, Bipolar 1 disorder, mixed F31.60 [place] [address] [address] Jan, Bipolar 1 disorder, mixed F31.60 [place] [address] [address] Jan, Allergic rhinitis J30.9 ; Hematuria R31. 9 and Colon cancer screening Z12.11 [place] [address] [address] Dec, Bipolar 1 disorder, mixed F31.60 [place] [address] [address] Dec, Bipolar 1 disorder, mixed F31.60 ; Gener alized anxiety disorder F41.1 and Other shelter (current) drug therapy Z79.899 [place] [address] [address] Dec, Bipolar 1 disorder, mixed F31.60 [place] [address] [address] Dec, Bipolar 1 disorder, mixed F31.60 [place] [address] [address] Dec, Bipolar 1 disorder, mixed F31.60 [place] [address] [address] Dec, Low back pain M54.5 and Recurrent urinar y tract infection N39.0 [place] [address] [address] Nov, Bipolar 1 disorder, mixed F31.60 [place] [address] [address] Nov, Bipolar 1 disorder, mixed F31.60 [place] [address] [address] Nov, Bipolar 1 disorder, mixed F31.60 [place] [address] [address] Nov, Bipolar 1 disorder, mixed F31.60 [place] [address] [address] Nov, [place] [address] [address] Nov, Anesthesia of skin R20.0 ; Frequent UTI N39.0 ; Tobacco abuse Z72.0 and Colon cancer screening Z12.11 [place] [address] [address] Nov, Bipolar 1 disorder, mixed F31.60 [place] [address] [address] October, Bipolar 1 disorder, mixed F31.60 [place] [address] [address] October, Bipolar 1 disorder, mixed F31.60 [place] [address] [address] October, Bipolar 1 disorder, mixed F31.60 [place] [address] [address] October, Bipolar 1 disorder, mixed F31.60 [place] [address] [address] October, Bipolar 1 disorder, mixed F31.60 [place] [address] [address] October, Cervicalgia M54.2 and Bipolar 1 disorder , mixed F31.60 [place] [address] [address] October, Hypertension I10 ; Hyperlipidemia, unspe cified hyperlipidemia type E78.5 and Family history of thyroid disease Z83.49 [place] [address] [address] October, [place] [address] [address] October, Hypertension I10 ; Hyperlipidemia, unspe cified hyperlipidemia type E78.5 and Family history of thyroid problem Z83.49 [place] [address] [address] October, Bipolar 1 disorder, mixed F31.60 [place] [address] [place] [address] Sep, Bipolar 1 disorder, mixed F31.60 [place] [address] [address] Sep, Bipolar 1 disorder, mixed F31.60 [place] [address] [address] Sep, Bipolar 1 disorder, mixed F31.60 [place] [address] [address] Sep, History of colon polyps Z86.010 and Thomas tochezia K92.1 [place] [address] [address] Sep, Major depressive disorder, recurrent epi sode, moderate F33.1 [place] [address] [address] Sep, Bipolar 1 disorder, mixed F31.60 [place] [address] [address] Aug, Hot flashes due to menopause N95.1 [place] [address] [address] Aug, Bipolar 1 disorder, mixed F31.60 [place] [address] [address] Aug, [place] [address] [address] Aug, Bipolar 1 disorder, mixed F31.60 [place] [address] [address] [place] [id number] Aug, Bipolar 1 disorder, mixed F31.60 [place] [address] [address] [place] [id number] Aug, Hot flashes due to menopause N95.1 ; Cer vicalgia M54.2 and Ataxia R27.0 [place] [address] [address] Jul, Bipolar 1 disorder, mixed F31.60 [place] [address] [address] Jul, Bipolar 1 disorder, mixed F31.60 [place] [address] [address] Jul, Bipolar 1 disorder, mixed F31.60 [place] [address] [address] Jul, Bipolar 1 disorder, mixed F31.60 [place] [address] [address] Jul, Bipolar 1 disorder, mixed F31.60 [place] [address] [address] Jul, Cervicalgia M54.2 ; Tremor R25.1 ; Heari ng abnormally acute, unspecified laterality H93.239 ; Alopecia L65.9 ; Encounter for immunization Z23 and Family history of thyroid disease Z83.49 [place] [address] [address] Jul, Bipolar 1 disorder, mixed F31.60 [place] [address] [address] Jun, [place] [id number] [address] Jun, Hearing disorder, unspecified laterality H93.299 [facility] [address] [address] Jun, Bipolar 1 disorder, mixed F31.60 [facility] [address] [address] Jun, Bipolar 1 disorder, mixed F31.60 [facility] [address] [address] Jun, Allergic rhinitis J30.9 [facility] [address] [address] Jun, Bipolar 1 disorder, mixed F31.60 [facility] [address] [address] Jun, Bipolar 1 disorder, mixed F31.60 [facility] [address] [address] Jun, Allergic rhinitis J30.9 [facility] [address] [address] Jun, Allergic rhinitis J30.9 [facility] [address] [address] Jun, Bipolar 1 disorder, mixed F31.60 [facility] [address] [address] May, Bipolar 1 disorder, mixed F31.60 [facility] [address] [address] May, Bipolar 1 disorder, mixed F31.60 [facility] [address] [address] May, [facility] [address] [address] May, Bipolar 1 disorder, mixed F31.60 [facility] [address] [address] May, Bipolar 1 disorder, mixed F31.60 [facility] [address] [address] May, [facility] [address] [address] May, [facility] [address] [address] May, [facility] [address] [address] May, Abdominal pain, unspecified location R10 .9 [facility] [address] [address] May, [facility] [address] [address] Apr, Hematuria R31.9 ; Ataxia R27.0 and Heari ng loss, unspecified laterality H91.90 [facility] [address] [address] Apr, Bipolar 1 disorder, mixed F31.60 [facility] [address] [facility] [id number] [address] [place] [address] Apr, Acute effusion of both middl e ears H65.193 [facility] [address] [address] Apr, Hematuria R31.9 and Pyelonephritis N12 [facility] [address] [address] Apr, [facility] [address] [address] Mar, Bipolar 1 disorder, mixed F31.60 [facility] [address] [address] Mar, [facility] [address] [address] Mar, Bipolar 1 disorder, mixed F31.60 [place] [address] [address] Mar, Bipolar 1 disorder, mixed F31.60 [place] [address] [place] [address] Mar, Encounter for immunization Z23 and Gastr itis without bleeding, unspecified chronicity, unspecified gastritis type K29.70 [place] [address] [place] [address] Mar, Bipolar 1 disorder, mixed F31.60 and Gri ef F43.20 [place] [address] [place] [address] Mar, Gastritis without bleeding, unspecified chronicity, unspecified gastritis type K29.70 [place] [address] [address] Mar, Bipolar 1 disorder, mixed F31.60 [place] [address] [address] Mar, Gastritis without bleeding, unspecified chronicity, unspecified gastritis type K29.70 [place] [address] [place] [address] Mar, [place] [address] [place] [address] Feb, Bipolar 1 disorder, mixed F31.60 [place] [address] [address] Feb, Bipolar 1 disorder, mixed F31.60 and Gri ef F43.20 [place] [address] [address] Feb, Gastritis without bleeding, unspecified chronicity, unspecified gastritis type K29.70 [place] [address] [place] [id number] 14 Feb, 2016 Bipolar 1 disorder, mixed F31.60 [facility] [address] [facility] [id number] [address] [place] [address] Feb, Gastroesophageal reflux dise ase, esophagitis presence not specified K21.9 [place] [address] Jan, Bipolar 1 disorder, mixed F31.60 [place] [address] Jan, Bipolar 1 disorder, mixed F31.60 and Uns teady gait R26.81 [place] [address] [place] [address] Jan, Bipolar 1 disorder, mixed F31.60 [place] [address] [place] [address] Jan, Bipolar 1 disorder, mixed F31.60 and Oth er intermission coordinator (current) drug therapy Z79.899 [place] [address] [address] Jan, Bipolar 1 disorder, mixed F31.60 [place] [address] [address] Jan, Bipolar 1 disorder, mixed F31.60 [place] [address] [place] [address] Jan, Bipolar 1 disorder, mixed F31.60 ; Grief F43.20 and Other intermission coordinator (current) drug therapy Z79.899 [place] [address] [place] [address] Jan, Bipolar 1 disorder, mixed F31.60 [place] [address] [address] Dec, [place] [address] [place] [address] Dec, Bipolar 1 disorder, mixed F31.60 ; Vitam in D deficiency, unspecified E55.9 ; H/O allergic rhinitis Z87.09 ; Other chronic pain G89.29 and Dorsalgia, unspecified M54.9 [place] [address] [place] [id number] [place] [address] Dec, [place] [address] [address] Dec, Bipolar 1 disorder, mixed F31.60 [place] [address] [address] Dec, Major depressive disorder, recurrent epi sode, moderate F33.1 [place] [address] [address] Dec, Major depressive disorder, recurrent epi sode, moderate F33.1 [place] [address] [address] Nov, [place] [address] [address] Nov, Bipolar 1 disorder, mixed F31.60 [place] [address] [address] Nov, Major depressive disorder, recurrent epi sode, moderate F33.1 [place] [address] [address] Nov, Cervicalgia M54.2 ; Arthralgia of hip, u nspecified laterality M25.559 ; Allergic rhinitis J30.9 and Hormone replacement therapy Z79.890 [facility] [address] [facility] [id number] [address] [place] [address] Nov, Other seasonal allergic rhin itis J30.2 [facility] [address] [address] October, Major depressive disorder, recurrent epi sode, moderate F33.1 [place] [address] [address] October, Major depressive disorder, recurrent epi sode, moderate F33.1 and Arthralgia of hip, unspecified laterality M25.559 [place] [address] [address] October, Grief F43.20 ; Hypertension I10 ; Hyperl ipidemia, unspecified hyperlipidemia type E78.5 ; Other chronic pain G89.29 and Allergic rhinitis, unspecified allergic rhinitis type J30.9 [place] [address] [address] October, Major depressive disorder, recurrent epi sode, moderate F33.1 [place] [address] [place] [address] Sep, Major depressive disorder, recurrent epi sode, moderate F33.1 [place] [address] [address] Sep, [place] [address] [address] Sep, Major depressive disorder, recurrent epi sode, moderate F33.1 [place] [address] [address] Sep, Grief F43.20 [place] [address] [address] Aug, Major depressive disorder, recurrent epi sode, moderate F33.1 [place] [address] [address] Aug, Bipolar 1 disorder, mixed F31.[address] [address] Aug, Allergic rhinitis J30.9 ; Cervicalgia M5 4.2 and Low back pain M54.[address] [address] Aug, Major depressive disorder, recurrent epi sode, moderate F33.1 [facility] N [facility] [id number] [address] [place] [address] Aug, Sinusitis J32.9 and Tobacco dependence F17.[address] [address] Aug, [facility] [address] [address] Aug, Depressive disorder, not elsewhere class ified F32.9 ; Hormone replacement therapy Z79.[address] scan, head R93.0 [facility] [address] [address] 08 Aug, 2015 Major depressive disorder, recurrent epi sode, moderate F33.1 [facility] [address] [address] Jul, Major depressive disorder, recurrent epi sode, moderate F33.1 [place] [address] [address] Jul, Abdominal pain R10.9 and Hypertension I1 0 [place] [address] [address] 08 Jul, 2015 [facility] [address] [address] Jul, Major depressive disorder, recurrent epi sode, moderate F33.1 [place] [address] [address] Jul, [facility] [address] [address] Jul, [place] [address] [address] Jun, [facility] [address] [address] Jun, Depressive disorder, not elsewhere class ified F32.9 [place] [address] [address] Jun, [facility] [address] [address] Jun, [facility] [address] [address] 20 Ra, 2016 Arthralgia of hip, unspecified lateralit y M25.559 ; Bruising, spontaneous R23.3 and Night sweats R61 [facility] [address] [address] Jun, [facility] [address] [address] Jun, [place] [address] [address] May, [facility] [address] [address] May, Myalgia M79.1 and Screening, lipid Z13.2 20 [place] [address] [address] Apr, Status post cervical spinal fusion Z98.1 ; Fibromyalgia M79.7 and Unsteady gait R26.81 [place] [address] [address] Nov, [place] [address] [address] Nov, [place] [address] [address] October, [facility] [address] [address] October, [facility] [address] [address] October, [facility] [address] [address] October, [facility] [address] [address] October, [facility] [address] [address] October, Dysuria 788.1 ; Nausea 787.02 and Urinar y tract infection 599.0 [place] [address] [address] 14 Sep, 2014 [facility] [place] [facility] [address] [facility] [id number] [place] [address] 13 Sep, 2014 [facility] [place] [facility] [address] [facility] [id number] [place] [address] 25 Aug, 2014 [facility] [place] [facility] [address] [id number] [place] [address] 25 Aug, 2014 [facility] [place] [facility] [address] [facility] [id number] [place] [address] 24 Aug, 2014 [facility] [place] [facility] [address] [facility] [id number] [place] [address] 24 Aug, 2014 [facility] [place] [facility] [address] [facility] [id number] [place] [address] 23 Aug, 2014 [facility] [place] [facility] [address] [id number] [place] [address] 19 Aug, 2014 [facility] [place] [facility] [address] [id number] [place] [address] 19 Aug, 2014 [facility] [place] [facility] [address] [facility] [id number] [place] [address] 19 Aug, 2014 [facility] [place] [facility] [address] [id number] [place] [address] 19 Aug, 2014 [facility] [place] [facility] [address] [id number] [place] [address] 18 Aug, 2014 [facility] [place] [facility] [address] [id number] [place] [address] 18 Aug, 2014 [facility] [place] [facility] [address] [facility] [id number] [place] [address] 13 Aug, 2014 [facility] [place] [facility] [address] [id number] [place] [address] 13 Aug, 2014 [facility] [place] [facility] [address] [id number] [place] [address] 11 Aug, 2014 [facility] [place] [facility] [address] [id number] [place] [address] 11 Aug, 2014 [facility] [place] [facility] [address] [id number] [place] [address] Aug, 2014 [facility] [place] [facility] [address] [facility] [id number] [place] [address] Aug, [facility] [place] [facility] [address] [id number] [place] [address] Aug, 2014 [facility] [place] [facility] [address] [id number] [place] [address] Aug, [facility] [place] [facility] [address] [id number] [place] [address] Aug, 2014 [facility] [place] [facility] [address] [id number] [place] [address] Aug, [facility] [place] [facility] [address] [id number] [place] [address] Aug, [facility] [place] [facility] [address] [id number] [place] [address] Jul, 2014 [facility] [place] [facility] [address] [id number] [place] [address] Jul, 2014 [facility] [place] [facility] [address] [id number] [place] [address] Jul, [facility] [place] [facility] [address] [id number] [place] [address] Jul, 2014 [facility] [place] [facility] [address] [id number] [place] [address] Jul, 2014 [facility] [place] [facility] [address] [id number] [place] [address] Jul, 2014 [facility] [place] [facility] [address] [id number] [place] [address] Jul, [facility] [place] [facility] [address] [id number] [place] [address] Jul, 2014 [facility] [place] [facility] [address] [id number] [place] [address] Jul, 2014 [facility] [place] [facility] [address] [id number] [place] [address] Jul, 2014 [facility] [place] [facility] [address] [id number] [place] [address] Jul, [facility] [place] [facility] [address] [id number] [place] [address] Jul, [facility] [place] [facility] [address] [id number] [place] [address] Jul, [facility] [place] [facility] [address] [id number] [place] [address] Jul, [facility] [place] [facility] [address] [id number] [place] [address] Jun, [facility] [place] [facility] [address] [id number] [place] [address] Jun, [facility] [place] [facility] [address] [id number] [place] [address] Jun, [facility] [place] [facility] [address] [id number] [place] [address] Jun, [facility] [place] [facility] [address] [id number] [place] [address] Jun, [facility] [place] [facility] [address] [id number] [place] [address] Jun, [facility] [place] [facility] [address] [id number] [place] [address] May, [facility] [place] [facility] [address] [id number] [place] [address] May, [facility] [place] [facility] [address] [id number] [place] [address] May, [facility] [place] [facility] [address] [id number] [place] [address] May, [facility] [place] [facility] [address] [id number] [place] [address] May, [facility] [place] [facility] [address] [id number] [place] [address] May, [facility] [place] [facility] [address] [id number] [place] [address] Apr, [facility] [place] [facility] [address] [id number] [place] [address] Apr, [facility] [place] [facility] [address] [id number] [place] [address] Apr, [facility] [place] [facility] [address] [id number] [place] [address] Apr, [facility] [place] [facility] [address] [id number] [place] [address] Apr, [facility] [place] [facility] [address] [id number] [place] [address] Apr, [facility] [place] [facility] [address] [id number] [place] [address] Mar, [facility] [place] [facility] [address] [id number] [place] [address] Mar, [facility] [place] [facility] [address] [id number] [place] [address] Mar, [facility] [place] [facility] [address] [id number] [place] [address] Mar, [facility] [place] [facility] [address] [id number] [place] [address] Mar, [facility] [place] [facility] [address] [id number] [place] [address] Mar, [facility] [place] [facility] [address] [id number] [place] [address] Mar, [facility] [place] [facility] [address] [id number] [place] [address] Mar, [facility] [place] [facility] [address] [id number] [place] [address] Mar, [facility] [place] [facility] [address] [id number] [place] [address] Mar, [facility] [place] [facility] [address] [id number] [place] [address] Mar, [facility] [place] [facility] [address] [facility] [id number] [place] [address] Mar, [facility] [place] [facility] [address] [facility] [id number] [place] [address] 30 Feb, 2014 [facility] [place] [facility] [address] [id number] [place] [address] 29 Feb, 2013 [facility] [place] [facility] [address] [id number] [place] [address] 29 Feb, 2014 [facility] [place] [facility] [address] [facility] [id number] [place] [address] Feb, 2013 [facility] [place] [facility] [address] [id number] [place] [address] Feb, [facility] [place] [facility] [address] [id number] [place] [address] 08 Feb, 2014 [facility] [place] [facility] [address] [id number] [place] [address] Feb, [facility] [place] [facility] [address] [id number] [place] [address] Jan, [facility] [place] [facility] [address] [id number] [place] [address] Jan, [facility] [place] [facility] [address] [id number] [place] [address] Jan, [facility] [place] [facility] [address] [id number] [place] [address] Dec, [facility] [place] [facility] [address] [id number] [place] [address] Dec, [facility] [place] [facility] [address] [id number] [place] [address] Dec, [facility] [place] [facility] [address] [id number] [place] [address] Dec, [facility] [place] [facility] [address] [id number] [place] [address] Sep, [facility] [place] [facility] [address] [id number] [place] [address] Sep, [facility] [place] [facility] [address] [id number] [place] [address] Sep, [facility] [place] [facility] [address] [id number] [place] [address] Sep, [facility] [place] [facility] [address] [id number] [place] [address] Sep, [facility] [place] [facility] [address] [id number] [place] [address] Sep, [facility] [place] [facility] [address] [id number] [place] [address] Sep, [facility] [place] [facility] [address] [id number] [place] [address] Sep, [facility] [place] [address] [id number] [place] [address] Aug, [facility] [place] [facility] [address] [id number] [place] [address] Aug, [facility] [place] [facility] [address] [id number] [place] [address] May, [facility] [place] [facility] [address] [id number] [place] [address] May, [facility] [place] [facility] [address] [id number] [place] [address] Apr, [facility] [place] [facility] [address] [id number] [place] [address] Apr, [facility] [place] [address] [id number] [place] [address] Apr, [facility] [place] [facility] [address] [id number] [place] [address] Apr, [facility] [place] [address] [id number] [place] [address] Apr, [facility] [place] [facility] [address] [id number] [place] [address] Apr, [facility] [place] [facility] [address] [id number] [place] [address] 18 May, 2012 [facility] [place] [facility] [address] [id number] [place] [address] 18 May, 2012 [facility] [place] [address] [id number] [place] [address] 15 May, 2012 [facility] [place] [address] [id number] [place] [address] 15 May, 2012 [facility] [place] [address] [id number] [place] [address] 13 May, 2012 [facility] [place] [address] [id number] [place] [address] 13 May, 2012 [facility] [place] [address] [id number] [place] [address] 13 Apr, 2012 [facility] [address] [id number] [place] [address] 13 Apr, 2012 [facility] [place] [address] [id number] [place] [address] 08 Apr, 2012 [facility] [place] [address] [id number] [place] [address] Apr, [facility] [place] [address] [id number] [place] [address] 08 Apr, 2012 [facility] [place] [address] [id number] [place] [address] Apr, [facility] [place] [address] [id number] [place] [address] Apr, [facility] [place] [address] [id number] [place] [address] Apr, [facility] [place] [id number] [place] [address] Apr, [facility] [place] [facility] [address] [id number] [place] [address] Apr, [facility] [place] [facility] [address] [id number] [place] [address] Mar, [facility] [place] [facility] [address] [facility] [id number] [place] [address] Mar, [facility] [place] [facility] [address] [id number] [place] [address] Mar, [facility] [place] [facility] [address] [id number] [place] [address] Mar, [facility] [place] [facility] [address] [id number] [place] [address] Mar, [facility] [place] [facility] [address] [facility] [id number] [place] [address] Mar, [facility] [place] [facility] [address] [id number] [place] [address] Mar, [facility] [place] [facility] [address] [id number] [place] [address] Mar, [facility] [place] [facility] [address] [id number] [place] [address] Mar, [facility] [place] [facility] [address] [id number] [place] [address] Feb, [facility] [place] [facility] [address] [id number] [place] [address] 16 Feb, 2012 [facility] [place] [facility] [address] [id number] [place] [address] Feb, [facility] [place] [facility] [address] [id number] [place] [address] Jan, [facility] [place] [facility] [address] [id number] [place] [address] Jan, [facility] [place] [facility] [address] [id number] [place] [address] Jan, [facility] [place] [facility] [address] [id number] [place] [address] Jan, [facility] [place] [facility] [address] [id number] [place] [address] Jan, [facility] [place] [facility] [address] [id number] [place] [address] Jan, [facility] [place] [facility] [address] [id number] [place] [address] Jan, [facility] [place] [facility] [address] [facility] [id number] [place] [address] Jan, [facility] [place] [facility] [address] [id number] [place] [address] Jan, [facility] [place] [facility] [address] [id number] [place] [address] Jan, [facility] [place] [facility] [address] [facility] [id number] [place] [address] Dec, [facility] [place] [facility] [address] [id number] [place] [address] Dec, [facility] [place] [facility] [address] [id number] [place] [address] Dec, [facility] [place] [facility] [address] [id number] [place] [address] Dec, [facility] [place] [facility] [address] [id number] [place] [address] Nov, [facility] [place] [facility] [address] [id number] [place] [address] Nov, [facility] [place] [facility] [address] [id number] [place] [address] Nov, [facility] [place] [facility] [address] [id number] [place] [address] October, [facility] [place] [facility] [address] [facility] [id number] [place] [address] October, [facility] [place] [facility] [address] [id number] [place] [address] October, [facility] [place] [facility] [address] [id number] [place] [address] October, [facility] [place] [facility] [address] [id number] [place] [address] October, [facility] [place] [facility] [address] [id number] [place] [address] October, [facility] [id number] [place] [address] Aug, [facility] [id number] [place] [address] Mar, [facility] [address] [address] Nov, [facility] [address] [address] May, [facility] [address] [address] May, [facility] [address] [address] Apr, [facility] [address] [address] Mar, [facility] [id number] [place] [address] Mar, IMMUNIZATIONS No Known Immunizations SOCIAL HISTORY [...]
--- OUTSIDE RECORDS SUMMARY | 2020-02-02 19:46 | XMS REPORT ---
Author Author Sydnie STEPHENSON Organization [facility] Address [address] [place] [address] Care Team Providers Care Administrative Personal Assistant Name Role Phone DAVEY STEPHENSON Unavailable PROBLEMS Type Condition ICD9-CM Code DCB12-RN Code Onset Dates Condition S tatus SNOMED Code Problem Sensorineural hearing loss (SNHL) of both ears H90 .3 Active 475596766 Problem Night sweats R61 Active 0323966 0 Problem Bruising, spontaneous R23.3 Active 290920030 Problem Hypertension I10 Active 2459223 3 Problem Arthralgia of hip, unspecified laterality M25.559 Active 58487901 Problem Other chronic pain G89.29 Active 8 9178333 Problem Grief F43.20 Active 69421834 Problem Fibromyalgia M79.7 Active 1280117 7 Problem Hormone replacement therapy Z79.890 Ac tive 912073150 Problem Major depressive disorder, recurrent episode, moderate F33.1 Active 085970185 Problem Abnormal CT scan, head R93.0 Active 759814355 Problem Age-related osteoporosis without current pathological fracture M81.0 Active 77464340 Problem Hearing loss, unspecified laterality H91.90 Active 19047088 Problem Ataxia R27.0 Active 25873799 Problem History of colon polyps Z86.010 Active 814153323 Problem Allergic rhinitis J30.9 Active 61 528827 Problem Hematuria, unspecified type R31.9 Ac tive 57602584 Problem Generalized anxiety disorder F41.1 A ctive 96141221 Problem Imbalance R26.89 Active 815987238 Problem Hammer toe of right foot M20.41 Activ e 701445587 Problem Bladder spasm N32.89 Active 824226 006 Problem Acute left-sided low back pain with left-sided sciatica M54.42 Active 422703708 Problem Sciatica of left side M54.32 Active 98017907 Problem Sciatica of right side M54.31 Active 46327456 Problem Gastritis without bleeding, unspecified chronicity, unspecified gastritis type K29.70 Active 552829278 Problem Hearing loss, unspecified hearing loss type, uns pecified laterality H91.90 Active 39178616 Problem Hyperlipidemia, unspecified hyperlipidemia type E7 8.5 Active 14979012 Problem Bipolar 1 disorder, mixed F31.60 Acti ve 90356812 Problem Plantar wart of right foot B07.0 Act mitchell [id number] Problem Slow transit constipation K59.01 Acti ve 65674882 Problem Tobacco use disorder F17.200 Active 580315261 Problem Post menopausal syndrome N95.1 Activ e 046608786 ALLERGIES No Information ENCOUNTERS Encounter Location Date Diagnosis [place] [address] [address] 07 Sep, 2019 [place] [address] [address] Aug, [place] [address] [address] Jul, Bipolar 1 disorder, mixed F31.60 [place] [address] [address] Jul, [place] [address] [address] Jul, Tobacco use disorder F17.200 [place] [address] [address] Jun, Bipolar 1 disorder, mixed F31.60 [place] [address] [address] Jun, Bipolar 1 disorder, mixed F31.60 ; Gener alized anxiety disorder F41.1 and Tobacco use disorder F17.200 [place] [address] [address] Jun, Tobacco use disorder F17.200 [place] [address] [address] May, [place] [address] [address] May, Compression fracture of L1 vertebra with routine healing, subsequent encounter S32.010D [facility] [address] [address] May, [facility] [address] [place] [id number] May, [facility] [address] [address] May, [facility] [address] [place] [address] May, [facility] [address] [address] May, [facility] [address] [address] May, [facility] [address] [address] May, [facility] [address] [address] May, Bipolar 1 disorder, mixed F31.60 [place] [address] [address] May, Closed fracture of right upper extremity with routine healing, subsequent encounter S42.301D and Hearing loss, unspecified hearing loss type, unspecified laterality H91.90 [place] [address] [address] May, [facility] [address] [place] [id number] Apr, Allergic rhinitis J30.9 ; Abdominal pain , unspecified location R10.9 and Seborrheic keratosis L82.1 [place] [address] [address] Mar, Bipolar 1 disorder, mixed F31.60 [facility] [address] [address] Mar, Bipolar 1 disorder, mixed F31.60 ; Gener alized anxiety disorder F41.1 and Tobacco use disorder F17.200 [place] [address] [address] Feb, Excessive gas R14.3 ; Other chronic pain G89.29 ; Encounter for immunization Z23 ; Hyperlipidemia, unspecified hyperlipidemia type E78.5 ; Bipolar 1 disorder, mixed F31.60 and Other skilled nursing (current) drug therapy Z79.899 [place] [address] [address] Feb, Bipolar 1 disorder, mixed F31.60 [place] [address] [address] Jan, Sciatica of right side M54.31 ; Low back pain M54.5 and Major depressive disorder, recurrent episode, moderate F33.1 [place] [address] [address] Jan, Bipolar 1 disorder, mixed F31.60 [place] [address] [address] Dec, Normal pelvic exam Z01.[address] [address] Dec, Bipolar 1 disorder, mixed F31.60 [place] [address] [address] Nov, Bipolar 1 disorder, mixed F31.60 [place] [address] [address] Nov, Bipolar 1 disorder, mixed F31.60 ; Gener alized anxiety disorder F41.1 ; Tobacco use disorder F17.200 and 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 (current) drug therapy Z79.899 [place] [address] [address] Nov, [place] [address] [address] Nov, Bipolar 1 disorder, mixed F31.60 [place] [address] [address] October, Bipolar 1 disorder, mixed F31.60 [place] [address] [address] October, Bipolar 1 disorder, mixed F31.60 [place] [address] [address] October, [place] [address] [address] October, Bipolar 1 disorder, mixed F31.60 ; Gener alized anxiety disorder F41.1 and Tobacco use disorder F17.200 [place] [address] [address] Sep, [place] [address] [address] Sep, Encounter for Medicare annual wellness e xam Z00.00 ; Major depressive disorder, recurrent episode, moderate F33.1 ; Allergic rhinitis J30.9 ; Bipolar 1 disorder, mixed F31.60 ; Fibromyalgia M79.7 ; Hyperlipidemia, unspecified hyperlipidemia type E78.5 ; Hormone replacement therapy Z79.890 ; Encounter for screening for lung cancer Z12.2 and Tobacco use disorder F17.200 [place] [address] [address] Sep, Bipolar 1 disorder, mixed F31.60 [place] [address] [address] Sep, Other chronic pain G89.29 ; Hyperlipidem ia, unspecified hyperlipidemia type E78.5 ; Breast cancer screening Z12.31 and Post menopausal syndrome N95.1 [place] [address] [address] Sep, Bipolar 1 disorder, mixed F31.60 [place] [address] [address] Sep, Bipolar 1 disorder, mixed F31.60 ; Gener alized anxiety disorder F41.1 and Tobacco use disorder F17.200 [place] [address] [address] Sep, Gastritis without bleeding, unspecified chronicity, unspecified gastritis type K29.70 [place] [address] [address] 08 Sep, 2018 Exercise counseling Z71.82 [place] [address] [address] Aug, Exercise counseling Z71.82 [place] [address] [address] Aug, Bipolar 1 disorder, mixed F31.60 [place] [address] [address] Aug, Exercise counseling Z71.82 [place] [address] [address] Aug, Bipolar 1 disorder, mixed F31.60 [place] [address] [address] Aug, Gastritis without bleeding, unspecified chronicity, unspecified gastritis type K29.70 ; Tobacco abuse Z72.0 ; Generalized anxiety disorder F41.1 and Weight gain R63.5 [place] [address] [address] Aug, Bipolar 1 disorder, mixed F31.60 ; Gener alized anxiety disorder F41.1 and Tobacco use disorder F17.200 [place] [address] [address] Jul, Bipolar 1 disorder, mixed F31.60 [place] [address] [address] Jul, [place] [address] [address] Jul, Bipolar 1 disorder, mixed F31.60 [place] [address] [address] Jul, Allergic rhinitis J30.9 ; Major depressi ve disorder, recurrent episode, moderate F33.1 and Tobacco dependence F17.200 [place] [address] [address] Jun, [place] [address] [address] Jun, [place] [address] [address] Jun, Bipolar 1 disorder, mixed F31.60 [place] [address] [address] Jun, Bipolar 1 disorder, mixed F31.60 [place] [address] [address] Jun, Bipolar 1 disorder, mixed F31.60 [place] [address] [address] Jun, Generalized anxiety disorder F41.1 ; Tob acco abuse Z72.0 and Major depressive disorder, recurrent episode, moderate F33.1 [place] [address] [address] May, Bipolar 1 disorder, mixed F31.60 [place] [address] [address] May, Bipolar 1 disorder, mixed F31.60 and Gen eralized anxiety disorder F41.1 [place] [address] [address] May, Bipolar 1 disorder, mixed F31.60 [place] [address] [address] May, Allergic rhinitis J30.9 [place] [address] [address] May, Bipolar 1 disorder, mixed F31.60 [place] [address] [address] May, [facility] [address] [address] Apr, Allergic rhinitis J30.9 ; Dysfunction of both eustachian tubes H69.83 ; History of bladder surgery Z98.890 and Cervicalgia M54.2 [facility] [address] [address] Mar, Bipolar 1 disorder, mixed F31.60 [facility] [address] [address] Mar, [place] [address] [address] Mar, Slow transit constipation K59.01 ; Encou nter for immunization Z23 and Generalized anxiety disorder F41.1 [place] [address] [address] Feb, Bipolar 1 disorder, mixed F31.60 [place] [address] [address] Feb, Allergic rhinitis J30.9 [place] [address] [address] 24 Feb, 2018 Bipolar 1 disorder, mixed F31.60 [place] [address] [address] Feb, Bipolar 1 disorder, mixed F31.60 and Gen eralized anxiety disorder F41.1 [place] [address] [address] 13 Feb, 2018 Bipolar 1 disorder, mixed F31.60 [place] [address] [address] Feb, Allergic rhinitis J30.9 [facility] [address] [address] 05 Feb, 2018 [facility] [address] [address] Jan, Bipolar 1 disorder, mixed F31.60 [facility] [address] [address] Jan, Low back pain M54.5 ; Hyperlipidemia, un specified hyperlipidemia type E78.5 and Bipolar 1 disorder, mixed F31.60 [facility] [address] [address] Jan, Bipolar 1 disorder, mixed F31.60 [facility] [address] [address] Jan, Bipolar 1 disorder, mixed F31.60 [place] [address] [address] Jan, Bipolar 1 disorder, mixed F31.60 [place] [address] [address] Jan, Bipolar 1 disorder, mixed F31.60 [place] [address] [address] Dec, Bipolar 1 disorder, mixed F31.60 ; Gener alized anxiety disorder F41.1 and 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 (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 therapy Z79.899 [place] [address] [address] Dec, Other skilled nursing (current) drug therapy Z 79.899 [place] [address] [address] Dec, Bipolar 1 disorder, mixed F31.60 [facility] [address] [address] Dec, Bipolar 1 disorder, mixed F31.60 [facility] [address] [address] Nov, Bipolar 1 disorder, mixed F31.60 [facility] [address] [address] Nov, Bipolar 1 disorder, mixed F31.60 [facility] [address] [place] [id number] Nov, Bipolar 1 disorder, mixed F31.60 [facility] [address] [address] Nov, Allergic rhinitis J30.9 [facility] [address] [address] Nov, Allergic rhinitis J30.9 [facility] [address] [address] Nov, [facility] [address] [address] Nov, Bipolar 1 disorder, mixed F31.60 [place] [address] [address] Nov, Fibromyalgia M79.7 and Allergic rhinitis J30.9 [place] [address] [address] October, Bipolar 1 disorder, mixed F31.60 [facility] [address] [place] [address] October, Acute nasopharyngitis J00 [facility]ALK IN [facility] [address] [place] [id number] [place] [address] October, Bitten or stung by nonvenomo us insect and other nonvenomous arthropods, initial encounter W57.XXXA and Insect bite (nonvenomous) of abdominal wall, initial encounter S30.861A [place] [address] [address] October, Insect bite (nonvenomous) of abdominal w all, initial encounter S30.861A ; Bitten or stung by nonvenomous insect and other nonvenomous arthropods, initial encounter W57.XXXA ; Allergic rhinitis J30.9 and Low back pain M54.5 [place] [address] [address] October, Bipolar 1 disorder, mixed F31.60 [place] [address] [address] October, [facility] [address] [address] October, [facility] [address] [address] October, Bipolar 1 disorder, mixed F31.60 [place] [address] [address] Sep, Bipolar 1 disorder, mixed F31.60 [place] [address] [address] Sep, Other chronic pain G89.29 [place] [address] [address] Sep, [place] [address] [address] Sep, Bipolar 1 disorder, mixed F31.60 [place] [address] [address] Sep, Allergic rhinitis J30.9 and Sciatica of left side M54.32 [place] [address] [address] Sep, Bipolar 1 disorder, mixed F31.60 [place] [address] [address] Sep, Bipolar 1 disorder, mixed F31.60 and Gen eralized anxiety disorder F41.1 [facility] [address] [address] Aug, [facility] [address] [address] Aug, Bipolar 1 disorder, mixed F31.60 [facility] [address] [address] Aug, Bipolar 1 disorder, mixed F31.60 [facility] [address] [address] Aug, [facility] [address] [address] Aug, Generalized anxiety disorder F41.1 [facility] [address] [address] Aug, Bipolar 1 disorder, mixed F31.60 [facility] [address] [address] Aug, Plantar wart of right foot B07.0 [facility] [address] [address] Aug, Bipolar 1 disorder, mixed F31.60 [place] [address] [address] Jul, Bipolar 1 disorder, mixed F31.60 [place] [address] [address] Jul, [facility] [address] [address] Jul, Bipolar 1 disorder, mixed F31.60 [place] [address] [address] Jul, Generalized anxiety disorder F41.1 [place] [address] [address] Jul, Bipolar 1 disorder, mixed F31.60 [place] [address] [address] Jul, Acute left-sided low back pain with left -sided sciatica M54.42 [facility] [address] [address] 05 Jul, 2017 Coccydynia M53.3 [facility] [address] [address] Jun, Bipolar 1 disorder, mixed F31.60 [facility] [address] [facility] [id number] [address] [place] [address] Jun, Acute nasopharyngitis J00 [place] [address] [address] Jun, Bipolar 1 disorder, mixed F31.60 [place] [address] [address] Jun, Fibromyalgia M79.7 [place] [address] [address] Jun, Bipolar 1 disorder, mixed F31.60 [place] [address] [address] Jun, Fibromyalgia M79.7 and Bipolar 1 disorde r, mixed F31.60 [place] [address] [address] May, Bipolar 1 disorder, mixed F31.60 ; Gener alized anxiety disorder F41.1 and Other skilled nursing (current) drug therapy Z79.899 [place] [address] [address] May, Bipolar 1 disorder, mixed F31.60 [facility] WALK IN [place] [id number] [place] [address] 14 May, 2017 Cough R05 and Body aches R52 [facility] [place] [id number] [place] [address] 10 May, 2017 Bladder spasm N32.89 and Acu te cystitis without hematuria N30.00 [place] [address] [address] 07 May, 2017 Bipolar 1 disorder, mixed F31.60 [place] [address] [address] Apr, [address] [address] Apr, Major depressive disorder, recurrent epi sode, moderate F33.1 and Encounter for immunization Z23 [place] [address] [address] 29 Apr, 2017 Bipolar 1 disorder, mixed F31.60 [facility] [address] [place] [address] 22 Apr, 2017 Bipolar 1 disorder, mixed F31.60 [place] [address] [address] 16 Apr, 2017 Bipolar 1 disorder, mixed F31.60 [facility] [address] [address] 13 Apr, 2017 Yeast vaginitis B37.3 [place] [address] [address] 09 Apr, 2017 Bipolar 1 disorder, mixed F31.60 [facility] [address] [facility] [id number] [address] [place] [address] 07 Apr, 2017 Cellulitis L03.[address] for immunization Z23 [place] [address] [address] 02 Apr, 2017 Bipolar 1 disorder, mixed F31.60 [place] [address] [address] Mar, Bipolar 1 disorder, mixed F31.60 [place] [address] [address] Mar, Bipolar 1 disorder, mixed F31.60 [place] [address] [address] Mar, Imbalance R26.89 and Encounter for immun ization Z23 [place] [address] [address] Mar, Generalized anxiety disorder F41.1 [place] [address] [address] Mar, Bipolar 1 disorder, mixed F31.60 [place] [address] [address] Mar, Generalized anxiety disorder F41.1 [place] [address] [address] Mar, Bipolar 1 disorder, mixed F31.60 [place] [address] [address] Mar, Bipolar 1 disorder, mixed F31.60 [place] [address] [address] Feb, Bipolar 1 disorder, mixed F31.60 [place] [address] [address] Feb, Bipolar 1 disorder, mixed F31.60 and Gen eralized anxiety disorder F41.1 [place] [address] [address] 21 Feb, 2017 Gastritis without bleeding, unspecified chronicity, unspecified gastritis type K29.70 ; Hammer toe of right foot M20.41 and Other viral warts B07.8 [place] [address] [address] Feb, Bipolar 1 disorder, mixed F31.60 [place] [address] [address] 13 Feb, 2017 Bipolar 1 disorder, mixed F31.60 [place] [address] [address] 05 Feb, 2017 Bipolar 1 disorder, mixed F31.60 [place] [address] [address] Jan, Encounter for screening mammogram for br east cancer Z12.31 ; Other viral warts B07.8 and Allergic rhinitis J30.9 [place] [address] [address] Jan, Bipolar 1 disorder, mixed F31.60 [place] [address] [address] Jan, Bipolar 1 disorder, mixed F31.60 [place] [address] [address] Jan, [place] [address] [address] Jan, Bipolar 1 disorder, mixed F31.60 [facility] [address] [address] Jan, Bipolar 1 disorder, mixed F31.60 [place] [address] [address] Jan, Allergic rhinitis J30.9 ; Hematuria R31. 9 and Colon cancer screening Z12.11 [place] [address] [address] Dec, Bipolar 1 disorder, mixed F31.60 [place] [address] [address] Dec, Bipolar 1 disorder, mixed F31.60 ; Gener alized anxiety disorder F41.1 and Other skilled nursing (current) drug therapy Z79.899 [place] [address] [address] Dec, Bipolar 1 disorder, mixed F31.60 [place] [address] [address] Dec, Bipolar 1 disorder, mixed F31.60 [place] [address] [address] Dec, Bipolar 1 disorder, mixed F31.60 [place] [address] [address] Dec, Low back pain M54.5 and Recurrent urinar y tract infection N39.0 [place] [address] [address] Nov, Bipolar 1 disorder, mixed F31.60 [place] [address] [address] Nov, Bipolar 1 disorder, mixed F31.60 [place] [address] [address] Nov, Bipolar 1 disorder, mixed F31.60 [place] [address] [address] Nov, Bipolar 1 disorder, mixed F31.60 [place] [address] [address] Nov, [place] [address] [address] Nov, Anesthesia of skin R20.0 ; Frequent UTI N39.0 ; Tobacco abuse Z72.0 and Colon cancer screening Z12.11 [place] [address] [address] Nov, Bipolar 1 disorder, mixed F31.60 [place] [address] [address] October, Bipolar 1 disorder, mixed F31.60 [place] [address] [address] October, Bipolar 1 disorder, mixed F31.60 [place] [address] [address] October, Bipolar 1 disorder, mixed F31.60 [place] [address] [address] October, Bipolar 1 disorder, mixed F31.60 [place] [address] [address] October, Bipolar 1 disorder, mixed F31.60 [place] [address] [address] October, Cervicalgia M54.2 and Bipolar 1 disorder , mixed F31.60 [place] [address] [address] October, Hypertension I10 ; Hyperlipidemia, unspe cified hyperlipidemia type E78.5 and Family history of thyroid disease Z83.49 [place] [address] [address] October, [place] [address] [address] October, Hypertension I10 ; Hyperlipidemia, unspe cified hyperlipidemia type E78.5 and Family history of thyroid problem Z83.49 [place] [address] [address] October, Bipolar 1 disorder, mixed F31.60 [place] [address] [address] Sep, Bipolar 1 disorder, mixed F31.60 [place] [address] [address] Sep, Bipolar 1 disorder, mixed F31.60 [place] [address] [address] Sep, Bipolar 1 disorder, mixed F31.60 [place] [address] [address] Sep, History of colon polyps Z86.010 and Thomas tochezia K92.1 [place] [address] [address] Sep, Major depressive disorder, recurrent epi sode, moderate F33.1 [place] [address] [address] Sep, Bipolar 1 disorder, mixed F31.60 [place] [address] [address] Aug, Hot flashes due to menopause N95.1 [place] [address] [address] Aug, Bipolar 1 disorder, mixed F31.60 [place] [address] [address] Aug, [place] [address] [address] Aug, Bipolar 1 disorder, mixed F31.60 [place] [address] [address] Aug, Bipolar 1 disorder, mixed F31.60 [place] [address] [address] Aug, Hot flashes due to menopause N95.1 ; Cer vicalgia M54.2 and Ataxia R27.0 [place] [address] [address] Jul, Bipolar 1 disorder, mixed F31.60 [place] [address] [place] [address] Jul, Bipolar 1 disorder, mixed F31.60 [place] [address] [address] Jul, Bipolar 1 disorder, mixed F31.60 [place] [address] [address] Jul, Bipolar 1 disorder, mixed F31.60 [place] [address] [address] Jul, Bipolar 1 disorder, mixed F31.60 [place] [address] [address] Jul, Cervicalgia M54.2 ; Tremor R25.1 ; Heari ng abnormally acute, unspecified laterality H93.239 ; Alopecia L65.9 ; Encounter for immunization Z23 and Family history of thyroid disease Z83.49 [place] [address] [address] Jul, Bipolar 1 disorder, mixed F31.60 [place] [address] [place] [id number] Jun, [place] [address] [address] Jun, Hearing disorder, unspecified laterality H93.299 [facility] [address] [id number] [place] [address] Jun, Bipolar 1 disorder, mixed F31.60 [facility] [address] [id number] [place] [address] Jun, Bipolar 1 disorder, mixed F31.60 [facility] [id number] [place] [address] Jun, Allergic rhinitis J30.9 [facility] [address] [address] Jun, Bipolar 1 disorder, mixed F31.60 [facility] [address] [address] Jun, Bipolar 1 disorder, mixed F31.60 [facility] [address] [address] Jun, Allergic rhinitis J30.9 [facility] [address] [address] Jun, Allergic rhinitis J30.9 [facility] [address] [address] Jun, Bipolar 1 disorder, mixed F31.60 [facility] [address] [address] May, Bipolar 1 disorder, mixed F31.60 [facility] [address] [address] May, Bipolar 1 disorder, mixed F31.60 [facility] [address] [id number] [place] [address] May, [facility] [address] [address] May, Bipolar 1 disorder, mixed F31.60 [facility] [address] [address] May, Bipolar 1 disorder, mixed F31.60 [facility] [address] [address] May, [facility] [address] [address] May, [facility] [address] [address] May, [facility] [address] [address] May, Abdominal pain, unspecified location R10 .9 [facility] [address] [address] May, [facility] [address] [address] Apr, Hematuria R31.9 ; Ataxia R27.0 and Heari ng loss, unspecified laterality H91.90 [place] [address] [address] Apr, Bipolar 1 disorder, mixed F31.60 [facility] [address] [facility] [id number] [address] [place] [address] Apr, Acute effusion of both middl e ears H65.193 [place] [address] [address] Apr, Hematuria R31.9 and Pyelonephritis N12 [facility] [address] [address] Apr, [facility] [address] [address] Mar, Bipolar 1 disorder, mixed F31.60 [facility] [address] [address] Mar, [facility] [address] [address] Mar, Bipolar 1 disorder, mixed F31.60 [facility] [address] [address] Mar, Bipolar 1 disorder, mixed F31.60 [place] [address] [address] Mar, Encounter for immunization Z23 and Gastr itis without bleeding, unspecified chronicity, unspecified gastritis type K29.70 [place] [address] [address] Mar, Bipolar 1 disorder, mixed F31.60 and Gri ef F43.20 [place] [address] [address] Mar, Gastritis without bleeding, unspecified chronicity, unspecified gastritis type K29.70 [place] [address] [address] Mar, Bipolar 1 disorder, mixed F31.60 [place] [address] [address] Mar, Gastritis without bleeding, unspecified chronicity, unspecified gastritis type K29.70 [place] [address] [address] Mar, [place] [address] [place] [address] Feb, Bipolar 1 disorder, mixed F31.60 [place] [address] [address] Feb, Bipolar 1 disorder, mixed F31.60 and Gri ef F43.20 [place] [address] [address] Feb, Gastritis without bleeding, unspecified chronicity, unspecified gastritis type K29.70 [place] [address] [address] 14 Feb, 2016 Bipolar 1 disorder, mixed F31.60 [facility] [address] [facility] [id number] [address] [place] [address] 09 Feb, 2016 Gastroesophageal reflux dise ase, esophagitis presence not specified K21.9 [place] [address] [address] Jan, Bipolar 1 disorder, mixed F31.60 [place] [address] [address] Jan, Bipolar 1 disorder, mixed F31.60 and Uns teady gait R26.81 [place] [address] [address] Jan, Bipolar 1 disorder, mixed F31.60 [place] [address] [address] Jan, Bipolar 1 disorder, mixed F31.60 and Oth er skilled nursing (current) drug therapy Z79.899 [place] [address] [address] Jan, Bipolar 1 disorder, mixed F31.60 [place] [address] [address] Jan, Bipolar 1 disorder, mixed F31.60 [place] [address] [address] Jan, Bipolar 1 disorder, mixed F31.60 ; Grief F43.20 and Other skilled nursing (current) drug therapy Z79.899 [place] [address] [address] Jan, Bipolar 1 disorder, mixed F31.60 [place] [address] [address] Dec, [place] [address] [address] Dec, Bipolar 1 disorder, mixed F31.60 ; Vitam in D deficiency, unspecified E55.9 ; H/O allergic rhinitis Z87.09 ; Other chronic pain G89.29 and Dorsalgia, unspecified M54.9 [place] [address] [address] Dec, [place] [address] [address] Dec, Bipolar 1 disorder, mixed F31.60 [place] [address] [address] Dec, Major depressive disorder, recurrent epi sode, moderate F33.1 [place] [address] [address] Dec, Major depressive disorder, recurrent epi sode, moderate F33.1 [place] [address] [address] Nov, [place] [address] [address] Nov, Bipolar 1 disorder, mixed F31.60 [place] [address] [address] Nov, Major depressive disorder, recurrent epi sode, moderate F33.1 [place] [address] [address] Nov, Cervicalgia M54.2 ; Arthralgia of hip, u nspecified laterality M25.559 ; Allergic rhinitis J30.9 and Hormone replacement therapy Z79.890 [facility] [address] [facility] [id number] [address] [place] [address] Nov, Other seasonal allergic rhin itis J30.2 [place] [address] [address] October, Major depressive disorder, recurrent epi sode, moderate F33.1 [place] [address] [address] October, Major depressive disorder, recurrent epi sode, moderate F33.1 and Arthralgia of hip, unspecified laterality M25.559 [place] [address] [address] October, Grief F43.20 ; Hypertension I10 ; Hyperl ipidemia, unspecified hyperlipidemia type E78.5 ; Other chronic pain G89.29 and Allergic rhinitis, unspecified allergic rhinitis type J30.9 [place] [address] [address] October, Major depressive disorder, recurrent epi sode, moderate F33.1 [place] [address] [address] Sep, Major depressive disorder, recurrent epi sode, moderate F33.1 [place] [address] [address] Sep, [place] [address] [address] Sep, Major depressive disorder, recurrent epi sode, moderate F33.1 [place] [address] [address] Sep, Grief F43.20 [place] [address] [address] 30 Aug, 2015 Major depressive disorder, recurrent epi sode, moderate F33.1 [place] [address] [address] 24 Aug, 2015 Bipolar 1 disorder, mixed F31.60 [place] [address] [address] Aug, Allergic rhinitis J30.9 ; Cervicalgia M5 4.2 and Low back pain M54.5 [place] [address] [address] Aug, Major depressive disorder, recurrent epi sode, moderate F33.1 [facility] [address] [facility] [id number] [address] [place] [address] Aug, Sinusitis J32.9 and Tobacco dependence F17.200 [place] [address] [address] Aug, [place] [address] [address] Aug, Depressive disorder, not elsewhere class ified F32.9 ; Hormone replacement therapy Z79.[address] scan, head R93.0 [place] [address] [address] 08 Aug, 2015 Major depressive disorder, recurrent epi sode, moderate F33.1 [place] [address] [address] Jul, Major depressive disorder, recurrent epi sode, moderate F33.1 [place] [address] [address] Jul, Abdominal pain R10.9 and Hypertension I1 0 [place] [address] [address] 08 Jul, 2015 [place] [address] [address] Jul, Major depressive disorder, recurrent epi sode, moderate F33.1 [place] [address] [address] Jul, [place] [address] [address] Jul, [place] [address] [address] Jun, [place] [address] [address] Jun, Depressive disorder, not elsewhere class ified F32.9 [place] [address] [address] Jun, [place] [address] [address] Jun, [place] [address] [address] Jun, Arthralgia of hip, unspecified lateralit y M25.559 ; Bruising, spontaneous R23.3 and Night sweats R61 [place] [address] [place] [id number] [place] [address] Jun, [facility] [address] [address] Jun, [facility] [address] [place] [id number] [place] [address] May, [facility] [address] [address] May, Myalgia M79.1 and Screening, lipid Z13.2 20 [facility] [address] [address] Apr, Status post cervical spinal fusion Z98.1 ; Fibromyalgia M79.7 and Unsteady gait R26.81 [facility] [address] [place] [id number] [place] [address] Nov, [facility] [address] [address] Nov, [facility] [address] [address] October, [facility] [address] [address] October, [facility] [address] [address] October, [facility] [address] [address] October, [facility] [address] [address] October, [facility] [address] [address] October, Dysuria 788.1 ; Nausea 787.02 and Urinar y tract infection 599.0 [facility] [address] [place] [id number] [place] [address] Sep, [facility] [address] [address] 13 Sep, 2014 [facility] [address] [facility] [id number] [place] [address] 25 Aug, 2014 [facility] [address] [facility] [id number] [place] [address] 25 Aug, 2014 [facility] [address] [id number] [place] [address] 24 Aug, 2014 [facility] [address] [facility] [id number] [place] [address] 24 Aug, 2014 [facility] [address] [facility] [id number] [place] [address] 23 Aug, 2014 [facility] [address] [id number] [place] [address] 19 Aug, 2014 [facility] [address] [id number] [place] [address] 19 Aug, 2014 [facility] [address] [id number] [place] [address] 19 Aug, 2014 [facility] [address] [facility] [id number] [place] [address] 19 Aug, 2014 [facility] [address] [id number] [place] [address] 18 Aug, 2014 [facility] [address] [id number] [place] [address] 18 Aug, 2014 [facility] [address] [id number] [place] [address] 13 Aug, 2014 [facility] [address] [facility] [id number] [place] [address] 13 Aug, 2014 [facility] [address] [facility] [id number] [place] [address] 11 Aug, 2014 [facility] [address] [id number] [place] [address] 11 Aug, 2014 [facility] [address] [id number] [place] [address] 06 Aug, 2014 [facility] [address] [id number] [place] [address] Aug, 2014 [facility] [address] [facility] [id number] [place] [address] Aug, [facility] [address] [id number] [place] [address] Aug, [facility] [address] [id number] [place] [address] Aug, [facility] [address] [id number] [place] [address] Aug, [facility] [address] [id number] [place] [address] Aug, [facility] [address] [id number] [place] [address] Jul, 2014 [facility] [address] [id number] [place] [address] Jul, [facility] [address] [id number] [place] [address] Jul, 2014 [facility] [address] [id number] [place] [address] Jul, [facility] [address] [id number] [place] [address] Jul, 2014 [facility] [address] [id number] [place] [address] Jul, [facility] [address] [id number] [place] [address] Jul, 2014 [facility] [address] [id number] [place] [address] Jul, [facility] [address] [id number] [place] [address] Jul, 2014 [facility] [address] [id number] [place] [address] Jul, 2014 [facility] [address] [id number] [place] [address] Jul, 2014 [facility] [address] [id number] [place] [address] Jul, [facility] [address] [id number] [place] [address] Jul, [facility] [address] [id number] [place] [address] Jul, [facility] [address] [id number] [place] [address] Jun, [facility] [address] [id number] [place] [address] Jun, [facility] [address] [id number] [place] [address] Jun, [facility] [address] [id number] [place] [address] Jun, [facility] [address] [id number] [place] [address] Jun, [facility] [address] [id number] [place] [address] Jun, [facility] [address] [id number] [place] [address] May, [facility] [address] [id number] [place] [address] May, [facility] [address] [id number] [place] [address] May, [facility] [address] [id number] [place] [address] May, [facility] [address] [id number] [place] [address] May, [facility] [address] [id number] [place] [address] May, [facility] [address] [id number] [place] [address] Apr, [facility] [address] [id number] [place] [address] Apr, [facility] [address] [id number] [place] [address] Apr, [facility] [address] [id number] [place] [address] Apr, [facility] [address] [id number] [place] [address] Apr, [facility] [address] [id number] [place] [address] Apr, [facility] [address] [id number] [place] [address] Mar, [facility] [address] [id number] [place] [address] Mar, [facility] [address] [id number] [place] [address] Mar, [facility] [address] [id number] [place] [address] Mar, [facility] [address] [id number] [place] [address] Mar, [facility] [address] [id number] [place] [address] Mar, [facility] [address] [id number] [place] [address] Mar, [facility] [address] [id number] [place] [address] Mar, [facility] [address] [id number] [place] [address] Mar, [facility] [address] [id number] [place] [address] Mar, [facility] [address] [id number] [place] [address] Mar, [facility] [address] [id number] [place] [address] Mar, [facility] [address] [id number] [place] [address] 30 Feb, 2013 [facility] [address] [facility] [id number] [place] [address] 29 Feb, 2014 [facility] [address] [id number] [place] [address] 29 Feb, 2014 [facility] [address] [id number] [place] [address] Feb, [facility] [address] [facility] [id number] [place] [address] Feb, [facility] [address] [id number] [place] [address] Feb, [facility] [address] [id number] [place] [address] Feb, [facility] [address] [id number] [place] [address] Jan, [facility] [address] [id number] [place] [address] Jan, [facility] [address] [id number] [place] [address] Jan, [facility] [address] [id number] [place] [address] Dec, [facility] [address] [id number] [place] [address] Dec, [facility] [address] [id number] [place] [address] Dec, [facility] [address] [id number] [place] [address] Dec, [facility] [address] [id number] [place] [address] Sep, [facility] [address] [id number] [place] [address] Sep, [facility] [address] [id number] [place] [address] Sep, [facility] [address] [id number] [place] [address] Sep, [facility] [address] [id number] [place] [address] Sep, [facility] [address] [id number] [place] [address] Sep, [facility] [address] [id number] [place] [address] Sep, [facility] [address] [id number] [place] [address] Sep, [facility] [address] [id number] [place] [address] Aug, [facility] [address] [id number] [place] [address] Aug, [facility] [address] [id number] [place] [address] May, [facility] [address] [id number] [place] [address] May, [facility] [address] [id number] [place] [address] Apr, [facility] [address] [id number] [place] [address] Apr, [facility] [address] [id number] [place] [address] Apr, [facility] [address] [id number] [place] [address] Apr, [facility] [address] [id number] [place] [address] Apr, [facility] [address] [id number] [place] [address] Apr, [facility] [address] [id number] [place] [address] May, [facility] [address] [id number] [place] [address] 18 May, 2012 [facility] [address] [id number] [place] [address] 15 May, 2012 [facility] [address] [id number] [place] [address] 15 May, 2012 [facility] [address] [id number] [place] [address] 13 May, 2012 [facility] [address] [id number] [place] [address] 13 May, 2012 [facility] [address] [id number] [place] [address] 13 Apr, 2012 [facility] [address] [id number] [place] [address] 13 Apr, 2012 [facility] [address] [id number] [place] [address] 08 Apr, 2012 [facility] [address] [id number] [place] [address] 08 Apr, 2012 [facility] [address] [id number] [place] [address] 08 Apr, 2012 [facility] [address] [id number] [place] [address] 08 Apr, 2012 [facility] [address] [id number] [place] [address] Apr, [facility] [address] [id number] [place] [address] Apr, [facility] [address] [id number] [place] [address] Apr, [facility] [id number] [place] [address] Apr, [facility] [address] [id number] [place] [address] Mar, [facility] [address] [id number] [place] [address] Mar, [facility] [address] [facility] [id number] [place] [address] Mar, [facility] [address] [id number] [place] [address] Mar, [facility] [address] [id number] [place] [address] Mar, [facility] [address] [id number] [place] [address] Mar, [facility] [address] [facility] [id number] [place] [address] Mar, [facility] [address] [id number] [place] [address] Mar, [facility] [address] [id number] [place] [address] Mar, [facility] [address] [id number] [place] [address] Feb, [facility] [address] [id number] [place] [address] 16 Feb, 2012 [facility] [address] [id number] [place] [address] Feb, [facility] [address] [id number] [place] [address] Jan, [facility] [address] [id number] [place] [address] Jan, [facility] [address] [id number] [place] [address] Jan, [facility] [address] [id number] [place] [address] Jan, [facility] [place] [address] [id number] [place] [address] Jan, [facility] [place] [address] [id number] [place] [address] Jan, [facility] [address] [id number] [place] [address] Jan, [facility] [place] [address] [id number] [place] [address] Jan, [facility] [place] [address] [facility] [id number] [place] [address] Jan, [facility] [place] [address] [id number] [place] [address] Jan, [facility] [place] [address] [id number] [place] [address] Dec, [facility] [place] [address] [facility] [id number] [place] [address] Dec, [facility] [place] [address] [id number] [place] [address] Dec, [facility] [address] [id number] [place] [address] Dec, [facility] [address] [id number] [place] [address] Nov, [facility] [place] [address] [facility] [id number] [place] [address] Nov, [facility] [place] [address] [id number] [place] [address] Nov, [facility] [place] [address] [id number] [place] [address] October, [facility] [address] [id number] [place] [address] October, [facility] [place] [address] [facility] [id number] [place] [address] October, [facility] [place] [address] [id number] [place] [address] October, [facility] [place] [address] [id number] [place] [address] October, [facility] [address] [id number] [place] [address] October, [facility] [address] [id number] [place] [address] 23 Aug, 2011 [facility] [address] [address] 10 Mar, 2011 [facility] [address] [address] 16 Nov, 2010 [facility] [address] [address] May, [facility] [address] [address] May, [facility] [address] [address] Apr, [facility] [address] [address] 15 Mar, 2010 [facility] [address] [address] Mar, IMMUNIZATIONS No Known Immunizations SOCIAL HISTORY Never Assessed REASON FOR VISIT PLAN OF CARE VITAL SIGNS Height 64 in 2013-09-16 Weight 149.2 lbs 2013-09-16 Temperature 96.9 degrees Fahrenheit 2013-09-16 Heart Rate 84 bpm 2013-09-16 Respiratory Rate 20 2013-09-16 Blood pressure systolic 142 mmHg 2013-09-16 Blood pressure diastolic 76 mmHg 2013-09-16 MEDICATIONS Unknown Medications RESULTS No Results PROCEDURES Procedure Date Ordered Result Body Site VENIPUNCT, ROUTINE* September 16, 2013 BASIC METABOLIC PANEL September 16, 2013 INSTRUCTIONS MEDICATIONS ADMINISTERED No Known Medications MEDICAL (GENERAL) HISTORY Type Description Date Medical History Severe spinal stenosis [facility] cervical spine CT and MRI [...] Surgical History appendectomy Surgical History Bladder surgery 12/1/15 Surgical History Arterial bleed repaired 05/19/2015 Surgical History cystescope 09/05/2017 Surgical History bladder sling and cystocele 03/2018 Surgical History Lumbar Epidural 02/2019 Hospitalization History surgeries Hospitalization History depression Hospitalization History psychiatric hospitalizations (last i [facility] 2013) x5 Hospitalization History L1 fracture 05/2019
--- OUTSIDE RECORDS SUMMARY | 2020-02-02 19:47 | XMS REPORT ---
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 Machine Operator Name Role Phone EVAN CANO Unavailable PROBLEMS Type Condition ICD9-CM Code UZU80-LD Code Onset Dates Condition S tatus SNOMED Code Problem Sensorineural hearing loss (SNHL) of both ears H90 .3 Active 511289370 Problem Night sweats R61 Active 5091971 0 Problem Bruising, spontaneous R23.3 Active 936484890 Problem Hypertension I10 Active 5528554 3 Problem Arthralgia of hip, unspecified laterality M25.559 Active 72507115 Problem Other chronic pain G89.29 Active 8 3370781 Problem Grief F43.20 Active 13886777 Problem Fibromyalgia M79.7 Active 1501864 7 Problem Hormone replacement therapy Z79.890 Ac tive 693439741 Problem Major depressive disorder, recurrent episode, moderate F33.1 Active 638387153 Problem Abnormal CT scan, head R93.0 Active 506705382 Problem Age-related osteoporosis without current pathological fracture M81.0 Active 21356172 Problem Hearing loss, unspecified laterality H91.90 Active 86519097 Problem Ataxia R27.0 Active 05019665 Problem History of colon polyps Z86.010 Active 164060778 Problem Allergic rhinitis J30.9 Active 61 748455 Problem Hematuria, unspecified type R31.9 Ac tive 78279154 Problem Generalized anxiety disorder F41.1 A ctive 96519870 Problem Imbalance R26.89 Active 076447960 Problem Hammer toe of right foot M20.41 Activ e 906131652 Problem Bladder spasm N32.89 Active 855482 006 Problem Acute left-sided low back pain with left-sided sciatica M54.42 Active 509008263 Problem Sciatica of left side M54.32 Active 51436268 Problem Sciatica of right side M54.31 Active 20567141 Problem Gastritis without bleeding, unspecified chronicity, unspecified gastritis type K29.70 Active 159787561 Problem Hearing loss, unspecified hearing loss type, uns pecified laterality H91.90 Active 63410507 Problem Hyperlipidemia, unspecified hyperlipidemia type E7 8.5 Active 83297355 Problem Bipolar 1 disorder, mixed F31.60 Acti ve 63332438 Problem Plantar wart of right foot B07.0 Act mitchell [id number] Problem Slow transit constipation K59.01 Acti ve 15553026 Problem Tobacco use disorder F17.200 Active 117293550 Problem Post menopausal syndrome N95.1 Activ e 464043847 ALLERGIES No Information ENCOUNTERS Encounter Location Date Diagnosis [place] [address] [address] Sep, [place] [address] [address] Jul, [place] [address] [address] Jun, [place] [address] [address] Jun, Bipolar 1 disorder, mixed F31.60 [place] [address] [address] 07 Jun, 2019 Bipolar 1 disorder, mixed F31.60 ; Gener alized anxiety disorder F41.1 and Tobacco use disorder F17.200 [place] [address] [address] Jun, Tobacco use disorder F17.200 [place] [address] [address] May, [place] [address] [address] May, Compression fracture of L1 vertebra with routine healing, subsequent encounter S32.010D [place] [address] [address] May, [place] [address] [address] May, [facility] [place] [address] [address] May, [facility] [place] [address] [address] May, [facility] [place] [address] [address] May, [place] [address] [address] May, [facility] [place] [address] [address] May, [place] [address] [address] May, Bipolar 1 disorder, mixed F31.60 [place] [address] [address] May, Closed fracture of right upper extremity with routine healing, subsequent encounter S42.301D and Hearing loss, unspecified hearing loss type, unspecified laterality H91.90 [place] [address] [address] May, [place] [address] [address] [place] [id number] Apr, Allergic rhinitis J30.9 ; Abdominal pain , unspecified location R10.9 and Seborrheic keratosis L82.1 [place] [address] [address] Mar, Bipolar 1 disorder, mixed F31.60 [place] [address] [address] Mar, Bipolar 1 disorder, mixed F31.60 ; Gener alized anxiety disorder F41.1 and Tobacco use disorder F17.200 [place] [address] [address] [place] [id number] Feb, Excessive gas R14.3 ; Other chronic pain G89.29 ; Encounter for immunization Z23 ; Hyperlipidemia, unspecified hyperlipidemia type E78.5 ; Bipolar 1 disorder, mixed F31.60 and 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 [facility] [place] [address] [address] Feb, Bipolar 1 disorder, mixed F31.60 [facility] [place] [address] [address] Jan, Sciatica of right side M54.31 ; Low back pain M54.5 and Major depressive disorder, recurrent episode, moderate F33.1 [facility] [place] [address] [address] Jan, Bipolar 1 disorder, mixed F31.60 [place] [address] [address] Dec, Normal pelvic exam Z01.419 [place] [address] [address] Dec, Bipolar 1 disorder, mixed F31.60 [facility] [place] [address] [address] Nov, Bipolar 1 disorder, mixed F31.60 [place] [address] [address] Nov, Bipolar 1 disorder, mixed F31.60 ; Gener alized anxiety disorder F41.1 ; Tobacco use disorder F17.200 and 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 [facility] [place] [address] [address] Nov, [facility] [place] [address] [address] Nov, Bipolar 1 disorder, mixed F31.60 [facility] [place] [address] [address] October, Bipolar 1 disorder, mixed F31.60 [facility] [place] [address] [address] October, Bipolar 1 disorder, mixed F31.60 [place] [address] [address] October, [place] [address] [address] October, Bipolar 1 disorder, mixed F31.60 ; Gener alized anxiety disorder F41.1 and Tobacco use disorder F17.200 [place] [address] [address] Sep, [place] [address] [address] Sep, Encounter for Medicare annual wellness e xam Z00.00 ; Major depressive disorder, recurrent episode, moderate F33.1 ; Allergic rhinitis J30.9 ; Bipolar 1 disorder, mixed F31.60 ; Fibromyalgia M79.7 ; Hyperlipidemia, unspecified hyperlipidemia type E78.5 ; Hormone replacement therapy Z79.890 ; Encounter for screening for lung cancer Z12.2 and Tobacco use disorder F17.200 [place] [address] [address] Sep, Bipolar 1 disorder, mixed F31.60 [place] [address] [address] Sep, Other chronic pain G89.29 ; Hyperlipidem ia, unspecified hyperlipidemia type E78.5 ; Breast cancer screening Z12.31 and Post menopausal syndrome N95.1 [place] [address] [address] Sep, Bipolar 1 disorder, mixed F31.60 [place] [address] [address] Sep, Bipolar 1 disorder, mixed F31.60 ; Gener alized anxiety disorder F41.1 and Tobacco use disorder F17.200 [place] [address] [address] Sep, Gastritis without bleeding, unspecified chronicity, unspecified gastritis type K29.70 [place] [address] [address] Sep, Exercise counseling Z71.82 [place] [address] [address] Aug, Exercise counseling Z71.82 [place] [address] [address] Aug, Bipolar 1 disorder, mixed F31.60 [place] [address] [address] Aug, Exercise counseling Z71.82 [place] [address] [address] Aug, Bipolar 1 disorder, mixed F31.60 [place] [address] [address] Aug, Gastritis without bleeding, unspecified chronicity, unspecified gastritis type K29.70 ; Tobacco abuse Z72.0 ; Generalized anxiety disorder F41.1 and Weight gain R63.5 [place] [address] [address] Aug, Bipolar 1 disorder, mixed F31.60 ; Gener alized anxiety disorder F41.1 and Tobacco use disorder F17.200 [place] [address] [address] Jul, Bipolar 1 disorder, mixed F31.60 [place] [address] [address] Jul, [place] [address] [address] Jul, Bipolar 1 disorder, mixed F31.60 [place] [address] [address] Jul, Allergic rhinitis J30.9 ; Major depressi ve disorder, recurrent episode, moderate F33.1 and Tobacco dependence F17.200 [place] [address] [address] Jun, [place] [address] [address] Jun, [place] [address] [address] Jun, Bipolar 1 disorder, mixed F31.60 [place] [address] [address] Jun, Bipolar 1 disorder, mixed F31.60 [place] [address] [address] Jun, Bipolar 1 disorder, mixed F31.60 [place] [address] [address] Jun, Generalized anxiety disorder F41.1 ; Tob acco abuse Z72.0 and Major depressive disorder, recurrent episode, moderate F33.1 [place] [address] [address] May, Bipolar 1 disorder, mixed F31.60 [place] [address] [address] May, Bipolar 1 disorder, mixed F31.60 and Gen eralized anxiety disorder F41.1 [place] [address] [address] May, Bipolar 1 disorder, mixed F31.60 [place] [address] [address] May, Allergic rhinitis J30.9 [place] [address] [address] May, Bipolar 1 disorder, mixed F31.60 [place] [address] [address] May, [place] [address] [address] Apr, Allergic rhinitis J30.9 ; Dysfunction of both eustachian tubes H69.83 ; History of bladder surgery Z98.890 and Cervicalgia M54.2 [place] [address] [address] Mar, Bipolar 1 disorder, mixed F31.60 [place] [address] [address] Mar, [place] [address] [address] Mar, Slow transit constipation K59.01 ; Encou nter for immunization Z23 and Generalized anxiety disorder F41.1 [place] [address] [address] 27 Feb, 2018 Bipolar 1 disorder, mixed F31.60 [place] [address] [address] 26 Feb, 2018 Allergic rhinitis J30.9 [place] [address] [address] 24 Feb, 2018 Bipolar 1 disorder, mixed F31.60 [place] [address] [address] 20 Feb, 2018 Bipolar 1 disorder, mixed F31.60 and Gen eralized anxiety disorder F41.1 [place] [address] [address] 13 Feb, 2018 Bipolar 1 disorder, mixed F31.60 [place] [address] [address] 11 Feb, 2018 Allergic rhinitis J30.9 [place] [address] [address] 05 Feb, 2018 [place] [address] [address] Jan, Bipolar 1 disorder, mixed F31.60 [place] [address] [address] Jan, Low back pain M54.5 ; Hyperlipidemia, un specified hyperlipidemia type E78.5 and Bipolar 1 disorder, mixed F31.60 [place] [address] [address] Jan, Bipolar 1 disorder, mixed F31.60 [facility] [place] [address] [address] Jan, Bipolar 1 disorder, mixed F31.60 [facility] [place] [address] [address] Jan, Bipolar 1 disorder, mixed F31.60 [facility] [place] [address] [address] Jan, Bipolar 1 disorder, mixed F31.60 [facility] [place] [address] [address] Dec, Bipolar 1 disorder, mixed F31.60 ; Gener alized anxiety disorder F41.1 and Other fci (current) drug therapy Z79.899 [place] [address] [address] Dec, 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 [facility] [place] [address] [address] Dec, Bipolar 1 disorder, mixed F31.60 [place] [address] [address] Dec, Bipolar 1 disorder, mixed F31.60 [facility] [place] [address] [address] Nov, Bipolar 1 disorder, mixed F31.60 [facility] [place] [address] [address] Nov, Bipolar 1 disorder, mixed F31.60 [facility] [place] [address] [address] Nov, Bipolar 1 disorder, mixed F31.60 [facility] [place] [address] [address] Nov, Allergic rhinitis J30.9 [facility] [place] [address] [address] Nov, Allergic rhinitis J30.9 [facility] [place] [address] [address] Nov, [facility] [place] [address] [address] Nov, Bipolar 1 disorder, mixed F31.60 [place] [address] [address] Nov, Fibromyalgia M79.7 and Allergic rhinitis J30.9 [place] [address] [address] October, Bipolar 1 disorder, mixed F31.60 [facility] [place] [address] [place] [id number] [address] [place] [address] October, Acute nasopharyngitis J00 [facility] [place] [id number] [place] [address] October, Bitten or stung by nonvenomo us insect and other nonvenomous arthropods, initial encounter W57.XXXA and Insect bite (nonvenomous) of abdominal wall, initial encounter S30.861A [place] [address] [address] October, Insect bite (nonvenomous) of abdominal w all, initial encounter S30.861A ; Bitten or stung by nonvenomous insect and other nonvenomous arthropods, initial encounter W57.XXXA ; Allergic rhinitis J30.9 and Low back pain M54.5 [place] [address] [address] October, Bipolar 1 disorder, mixed F31.60 [place] [address] [address] October, [place] [address] [address] October, [place] [address] [address] October, Bipolar 1 disorder, mixed F31.60 [facility] [place] [address] [address] Sep, Bipolar 1 disorder, mixed F31.60 [facility] [place] [address] [address] Sep, Other chronic pain G89.29 [facility] [place] [address] [address] Sep, [facility] [place] [address] [address] Sep, Bipolar 1 disorder, mixed F31.60 [place] [address] [address] Sep, Allergic rhinitis J30.9 and Sciatica of left side M54.32 [place] [address] [address] Sep, Bipolar 1 disorder, mixed F31.60 [place] [address] [address] Sep, Bipolar 1 disorder, mixed F31.60 and Gen eralized anxiety disorder F41.1 [place] [address] [address] Aug, [place] [address] [address] Aug, Bipolar 1 disorder, mixed F31.60 [place] [address] [address] Aug, Bipolar 1 disorder, mixed F31.60 [place] [address] [address] Aug, [place] [address] [address] Aug, Generalized anxiety disorder F41.1 [place] [address] [address] Aug, Bipolar 1 disorder, mixed F31.60 [facility] [place] [address] [address] Aug, Plantar wart of right foot B07.0 [place] [address] [address] Aug, Bipolar 1 disorder, mixed F31.60 [facility] [place] [address] [address] Jul, Bipolar 1 disorder, mixed F31.60 [place] [address] [address] Jul, [place] [address] [address] Jul, Bipolar 1 disorder, mixed F31.60 [place] [address] [address] Jul, Generalized anxiety disorder F41.1 [place] [address] [address] Jul, Bipolar 1 disorder, mixed F31.60 [place] [address] [address] Jul, Acute left-sided low back pain with left -sided sciatica M54.42 [place] [address] [address] Jul, Coccydynia M53.3 [place] [address] [address] Jun, Bipolar 1 disorder, mixed F31.60 [facility] [address] [facility] [id number] [address] [place] [address] Jun, Acute nasopharyngitis J00 [facility] [place] [address] [address] Jun, Bipolar 1 disorder, mixed F31.60 [facility] [place] [address] [address] Jun, Fibromyalgia M79.7 [place] [address] [place] [address] Jun, Bipolar 1 disorder, mixed F31.60 [place] [address] [place] [address] Jun, Fibromyalgia M79.7 and Bipolar 1 disorde r, mixed F31.60 [place] [address] [address] May, Bipolar 1 disorder, mixed F31.60 ; Gener alized anxiety disorder F41.1 and 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 [place] [address] [address] May, Bipolar 1 disorder, mixed F31.60 [facility] W[facility] IN [address] [address] May, Cough R05 and Body aches R52 [facility] IN [address] [address] May, Bladder spasm N32.89 and Acu te cystitis without hematuria N30.00 [place] [address] [address] May, Bipolar 1 disorder, mixed F31.60 [place] [address] [address] Apr, [address] [address] Apr, Major depressive disorder, recurrent epi sode, moderate F33.1 and Encounter for immunization Z23 [place] [address] [address] Apr, Bipolar 1 disorder, mixed F31.60 [place] [address] [address] Apr, Bipolar 1 disorder, mixed F31.60 [place] [address] [address] 16 Apr, 2017 Bipolar 1 disorder, mixed F31.60 [facility] [place] [address] [address] Apr, Yeast vaginitis B37.3 [facility] [place] [address] [address] 09 Apr, 2017 Bipolar 1 disorder, mixed F31.60 [facility] [address] [facility] [id number] [address] [place] [address] 07 Apr, 2017 Cellulitis L03.[address] for immunization Z23 [place] [address] [address] Apr, Bipolar 1 disorder, mixed F31.60 [place] [address] [address] Mar, Bipolar 1 disorder, mixed F31.60 [place] [address] [address] Mar, Bipolar 1 disorder, mixed F31.60 [place] [address] [address] Mar, Imbalance R26.89 and Encounter for immun ization Z23 [place] [address] [address] Mar, Generalized anxiety disorder F41.1 [place] [address] [address] Mar, Bipolar 1 disorder, mixed F31.60 [facility] [place] [address] [address] Mar, Generalized anxiety disorder F41.1 [place] [address] [address] Mar, Bipolar 1 disorder, mixed F31.60 [facility] [place] [address] [address] Mar, Bipolar 1 disorder, mixed F31.60 [place] [address] [address] Feb, Bipolar 1 disorder, mixed F31.60 [place] [address] [address] Feb, Bipolar 1 disorder, mixed F31.60 and Gen eralized anxiety disorder F41.1 [place] [address] [address] Feb, Gastritis without bleeding, unspecified chronicity, unspecified gastritis type K29.70 ; Hammer toe of right foot M20.41 and Other viral warts B07.8 [place] [address] [address] Feb, Bipolar 1 disorder, mixed F31.60 [place] [address] [address] Feb, Bipolar 1 disorder, mixed F31.60 [place] [address] [address] Feb, Bipolar 1 disorder, mixed F31.60 [place] [address] [address] Jan, Encounter for screening mammogram for br east cancer Z12.31 ; Other viral warts B07.8 and Allergic rhinitis J30.9 [place] [address] [address] Jan, Bipolar 1 disorder, mixed F31.60 [place] [address] [address] Jan, Bipolar 1 disorder, mixed F31.60 [place] [address] [address] Jan, [place] [address] [address] Jan, Bipolar 1 disorder, mixed F31.60 [place] [address] [address] Jan, Bipolar 1 disorder, mixed F31.60 [place] [address] [address] Jan, Allergic rhinitis J30.9 ; Hematuria R31. 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 [place] [address] [address] Dec, Bipolar 1 disorder, mixed F31.60 [place] [address] [address] Dec, Bipolar 1 disorder, mixed F31.60 [place] [address] [address] Dec, Bipolar 1 disorder, mixed F31.60 [place] [address] [address] Dec, Low back pain M54.5 and Recurrent urinar y tract infection N39.0 [place] [address] [address] Nov, Bipolar 1 disorder, mixed F31.60 [place] [address] [address] Nov, Bipolar 1 disorder, mixed F31.60 [place] [address] [address] Nov, Bipolar 1 disorder, mixed F31.60 [place] [address] [address] Nov, Bipolar 1 disorder, mixed F31.60 [place] [address] [address] Nov, [place] [address] [address] Nov, Anesthesia of skin R20.0 ; Frequent UTI N39.0 ; Tobacco abuse Z72.0 and Colon cancer screening Z12.11 [place] [address] [address] Nov, Bipolar 1 disorder, mixed F31.60 [place] [address] [address] October, Bipolar 1 disorder, mixed F31.60 [place] [address] [address] October, Bipolar 1 disorder, mixed F31.60 [place] [address] [address] October, Bipolar 1 disorder, mixed F31.60 [place] [address] [address] October, Bipolar 1 disorder, mixed F31.60 [place] [address] [address] October, Bipolar 1 disorder, mixed F31.60 [place] [address] [address] October, Cervicalgia M54.2 and Bipolar 1 disorder , mixed F31.60 [place] [address] [address] October, Hypertension I10 ; Hyperlipidemia, unspe cified hyperlipidemia type E78.5 and Family history of thyroid disease Z83.49 [place] [address] [address] October, [place] [address] [address] October, Hypertension I10 ; Hyperlipidemia, unspe cified hyperlipidemia type E78.5 and Family history of thyroid problem Z83.49 [place] [address] [address] October, Bipolar 1 disorder, mixed F31.60 [place] [address] [place] [address] Sep, Bipolar 1 disorder, mixed F31.60 [place] [address] [address] Sep, Bipolar 1 disorder, mixed F31.60 [place] [address] [address] Sep, Bipolar 1 disorder, mixed F31.60 [place] [address] [address] Sep, History of colon polyps Z86.010 and Thomas tochezia K92.1 [place] [address] [address] Sep, Major depressive disorder, recurrent epi sode, moderate F33.1 [place] [address] [address] Sep, Bipolar 1 disorder, mixed F31.60 [place] [address] [address] Aug, Hot flashes due to menopause N95.1 [place] [address] [address] Aug, Bipolar 1 disorder, mixed F31.60 [place] [address] [address] Aug, [place] [address] [address] Aug, Bipolar 1 disorder, mixed F31.60 [place] [address] [address] Aug, Bipolar 1 disorder, mixed F31.60 [place] [address] [address] 08 Aug, 2016 Hot flashes due to menopause N95.1 ; Cer vicalgia M54.2 and Ataxia R27.0 [place] [address] [address] Jul, Bipolar 1 disorder, mixed F31.60 [place] [address] [address] Jul, Bipolar 1 disorder, mixed F31.60 [place] [address] [address] Jul, Bipolar 1 disorder, mixed F31.60 [place] [address] [address] Jul, Bipolar 1 disorder, mixed F31.60 [place] [address] [address] Jul, Bipolar 1 disorder, mixed F31.60 [place] [address] [address] Jul, Cervicalgia M54.2 ; Tremor R25.1 ; Heari ng abnormally acute, unspecified laterality H93.239 ; Alopecia L65.9 ; Encounter for immunization Z23 and Family history of thyroid disease Z83.49 [place] [address] [address] Jul, Bipolar 1 disorder, mixed F31.60 [place] [address] [address] Jun, [place] [address] [address] Jun, Hearing disorder, unspecified laterality H93.299 [place] [address] [address] Jun, Bipolar 1 disorder, mixed F31.60 [place] [address] [address] Jun, Bipolar 1 disorder, mixed F31.60 [facility] [place] [address] [id number] [place] [address] Jun, Allergic rhinitis J30.9 [facility] [place] [address] [id number] [place] [address] Jun, Bipolar 1 disorder, mixed F31.60 [facility] [place] [address] [id number] [place] [address] Jun, Bipolar 1 disorder, mixed F31.60 [facility] [place] [address] [id number] [place] [address] Jun, Allergic rhinitis J30.9 [facility] [place] [address] [place] [id number] [place] [address] Jun, Allergic rhinitis J30.9 [facility] [place] [address] [id number] [place] [address] Jun, Bipolar 1 disorder, mixed F31.60 [facility] [place] [address] [place] [id number] [place] [address] May, Bipolar 1 disorder, mixed F31.60 [facility] [place] [address] [place] [id number] [place] [address] May, Bipolar 1 disorder, mixed F31.60 [facility] [place] [address] [place] [id number] [place] [address] May, [facility] [place] [address] [place] [id number] [place] [address] May, Bipolar 1 disorder, mixed F31.60 [facility] [place] [address] [id number] [place] [address] May, Bipolar 1 disorder, mixed F31.60 [facility] [place] [address] [place] [id number] [place] [address] May, [facility] [place] [address] [place] [id number] [place] [address] May, [facility] [place] [address] [place] [id number] [place] [address] May, [facility] [place] [address] [address] May, Abdominal pain, unspecified location R10 .9 [facility] [place] [address] [address] May, [facility] [place] [address] [address] Apr, Hematuria R31.9 ; Ataxia R27.0 and Heari ng loss, unspecified laterality H91.90 [place] [address] [address] Apr, Bipolar 1 disorder, mixed F31.60 [facility] [address] [facility] [id number] [address] [place] [address] Apr, Acute effusion of both middl e ears H65.193 [place] [address] [address] Apr, Hematuria R31.9 and Pyelonephritis N12 [facility] [place] [address] [address] Apr, [place] [address] [address] Mar, Bipolar 1 disorder, mixed F31.60 [place] [address] [address] Mar, [place] [address] [address] Mar, Bipolar 1 disorder, mixed F31.60 [facility] [place] [address] [address] Mar, Bipolar 1 disorder, mixed F31.60 [place] [address] [address] Mar, Encounter for immunization Z23 and Gastr itis without bleeding, unspecified chronicity, unspecified gastritis type K29.70 [place] [address] [address] Mar, Bipolar 1 disorder, mixed F31.60 and Gri ef F43.20 [place] [address] [address] Mar, Gastritis without bleeding, unspecified chronicity, unspecified gastritis type K29.70 [place] [address] [address] Mar, Bipolar 1 disorder, mixed F31.60 [place] [address] [address] Mar, Gastritis without bleeding, unspecified chronicity, unspecified gastritis type K29.70 [place] [address] [address] Mar, [place] [address] [address] Feb, Bipolar 1 disorder, mixed F31.60 [place] [address] [address] Feb, Bipolar 1 disorder, mixed F31.60 and Gri ef F43.20 [place] [address] [address] Feb, Gastritis without bleeding, unspecified chronicity, unspecified gastritis type K29.70 [place] [address] [address] Feb, Bipolar 1 disorder, mixed F31.60 [facility] [address] [facility] [id number] [address] [place] [address] 09 Feb, 2016 Gastroesophageal reflux dise ase, esophagitis presence not specified K21.9 [place] [address] [address] Jan, Bipolar 1 disorder, mixed F31.60 [place] [address] [address] Jan, Bipolar 1 disorder, mixed F31.60 and Uns teady gait R26.81 [place] [address] [address] Jan, Bipolar 1 disorder, mixed F31.60 [place] [address] [place] [address] Jan, Bipolar 1 disorder, mixed F31.60 and Oth er fci (current) drug therapy Z79.899 [place] [address] [address] Jan, Bipolar 1 disorder, mixed F31.60 [place] [address] [address] Jan, Bipolar 1 disorder, mixed F31.60 [place] [address] [address] Jan, Bipolar 1 disorder, mixed F31.60 ; Grief F43.20 and Other fci (current) drug therapy Z79.899 [place] [address] [address] Jan, Bipolar 1 disorder, mixed F31.60 [place] [address] [address] Dec, [place] [address] [address] Dec, Bipolar 1 disorder, mixed F31.60 ; Vitam in D deficiency, unspecified E55.9 ; H/O allergic rhinitis Z87.09 ; Other chronic pain G89.29 and Dorsalgia, unspecified M54.9 [place] [address] [address] Dec, [place] [address] [address] Dec, Bipolar 1 disorder, mixed F31.60 [place] [address] [address] Dec, Major depressive disorder, recurrent epi sode, moderate F33.1 [place] [address] [place] [id number] [place] [address] Dec, Major depressive disorder, recurrent epi sode, moderate F33.1 [place] [address] [address] Nov, [place] [address] [address] Nov, Bipolar 1 disorder, mixed F31.60 [place] [address] [address] Nov, Major depressive disorder, recurrent epi sode, moderate F33.1 [place] [address] [address] Nov, Cervicalgia M54.2 ; Arthralgia of hip, u nspecified laterality M25.559 ; Allergic rhinitis J30.9 and Hormone replacement therapy Z79.890 [facility] [address] [facility] [id number] [address] [place] [address] Nov, Other seasonal allergic rhin itis J30.2 [place] [address] [address] October, Major depressive disorder, recurrent epi sode, moderate F33.1 [place] [address] [address] October, Major depressive disorder, recurrent epi sode, moderate F33.1 and Arthralgia of hip, unspecified laterality M25.559 [place] [address] [address] October, Grief F43.20 ; Hypertension I10 ; Hyperl ipidemia, unspecified hyperlipidemia type E78.5 ; Other chronic pain G89.29 and Allergic rhinitis, unspecified allergic rhinitis type J30.9 [place] [address] [address] October, Major depressive disorder, recurrent epi sode, moderate F33.1 [place] [address] [place] [id number] Sep, Major depressive disorder, recurrent epi sode, moderate F33.1 [place] [address] [address] Sep, [place] [address] [address] Sep, Major depressive disorder, recurrent epi sode, moderate F33.1 [place] [address] [address] Sep, Grief F43.20 [place] [address] [address] Aug, Major depressive disorder, recurrent epi sode, moderate F33.1 [place] [address] [address] Aug, Bipolar 1 disorder, mixed F31.60 [place] [address] [address] Aug, Allergic rhinitis J30.9 ; Cervicalgia M5 4.2 and Low back pain M54.5 [place] [address] [address] Aug, Major depressive disorder, recurrent epi sode, moderate F33.1 [facility] [address] [facility] [id number] [address] [place] [address] Aug, Sinusitis J32.9 and Tobacco dependence F17.200 [place] [address] [address] Aug, [place] [address] [address] Aug, Depressive disorder, not elsewhere class ified F32.9 ; Hormone replacement therapy Z79.[address] scan, head R93.0 [place] [address] [address] Aug, Major depressive disorder, recurrent epi sode, moderate F33.1 [facility] [place] [address] [address] Jul, Major depressive disorder, recurrent epi sode, moderate F33.1 [facility] [place] [address] [address] Jul, Abdominal pain R10.9 and Hypertension I1 0 [facility] [place] [address] [address] Jul, [facility] [place] [address] [address] Jul, Major depressive disorder, recurrent epi sode, moderate F33.1 [place] [address] [address] Jul, [place] [address] [address] Jul, [place] [address] [address] Jun, [place] [address] [address] Jun, Depressive disorder, not elsewhere class ified F32.9 [place] [address] [address] Jun, [facility] [place] [address] [address] Jun, [place] [address] [address] Jun, Arthralgia of hip, unspecified lateralit y M25.559 ; Bruising, spontaneous R23.3 and Night sweats R61 [place] [address] [address] Jun, [place] [address] [address] Jun, [facility] [place] [address] [address] May, [facility] [place] [address] [address] May, Myalgia M79.1 and Screening, lipid Z13.2 20 [facility] [place] [address] [place] [id number] [place] [address] Apr, Status post cervical spinal fusion Z98.1 ; Fibromyalgia M79.7 and Unsteady gait R26.81 [facility] [place] [address] [place] [id number] [place] [address] Nov, [facility] [place] [address] [address] Nov, [facility] [place] [address] [address] October, [facility] [place] [address] [address] October, [facility] [place] [address] [address] October, [facility] [place] [address] [address] October, [facility] [place] [address] [address] October, [facility] [place] [address] [address] October, Dysuria 788.1 ; Nausea 787.02 and Urinar y tract infection 599.0 [facility] [place] [address] [place] [id number] [place] [address] Sep, [facility] [place] [address] [address] Sep, [facility] [place] [address] [address] Aug, [facility] [place] [address] [address] Aug, [facility] [address] [facility] [id number] [place] [address] 24 Aug, 2014 [facility] [address] [facility] [id number] [place] [address] 24 Aug, 2014 [facility] [address] [facility] [id number] [place] [address] 23 Aug, 2014 [facility] [address] [id number] [place] [address] 19 Aug, 2014 [facility] [address] [facility] [id number] [place] [address] 19 Aug, 2014 [facility] [address] [facility] [id number] [place] [address] 19 Aug, 2014 [facility] [address] [id number] [place] [address] 19 Aug, 2014 [facility] [address] [id number] [place] [address] 18 Aug, 2014 [facility] [address] [id number] [place] [address] 18 Aug, 2014 [facility] [address] [facility] [id number] [place] [address] 13 Aug, 2014 [facility] [address] [id number] [place] [address] 13 Aug, 2014 [facility] [address] [id number] [place] [address] 11 Aug, 2014 [facility] [address] [facility] [id number] [place] [address] Aug, 2014 [facility] [address] [facility] [id number] [place] [address] 06 Aug, 2014 [facility] [address] [id number] [place] [address] 06 Aug, 2014 [facility] [address] [id number] [place] [address] 05 Aug, 2014 [facility] [address] [id number] [place] [address] 05 Aug, 2014 [facility] [address] [id number] [place] [address] Aug, 2014 [facility] [address] [id number] [facility] [place] [address] Aug, [facility] [address] [id number] [facility] [place] [address] Aug, [facility] [address] [id number] [place] [address] Jul, 2014 [facility] [address] [facility] [id number] [facility] [place] [address] Jul, 2014 [facility] [address] [id number] [place] [address] Jul, 2014 [facility] [address] [id number] [place] [address] Jul, 2014 [facility] [address] [id number] [place] [address] Jul, 2014 [facility] [address] [id number] [place] [address] Jul, 2014 [facility] [address] [id number] [place] [address] Jul, 2014 [facility] [address] [id number] [place] [address] Jul, 2014 [facility] [address] [id number] [place] [address] Jul, 2014 [facility] [address] [id number] [place] [address] Jul, 2014 [facility] [address] [id number] [place] [address] Jul, 2014 [facility] [address] [id number] [place] [address] Jul, 2014 [facility] [address] [id number] [place] [address] Jul2014 [facility] [address] [id number] [place] [address] Jul, [facility] [address] [id number] [place] [address] Jun, [facility] [address] [id number] [place] [address] Jun, [facility] [id number] [place] [address] Jun, [facility] [address] [id number] [place] [address] Jun, [facility] [address] [id number] [place] [address] Jun, [facility] [address] [id number] [place] [address] Jun, [facility] [id number] [place] [address] May, [facility] [address] [id number] [place] [address] May, [facility] [address] [id number] [place] [address] May, [facility] [address] [id number] [place] [address] May, [facility] [address] [id number] [place] [address] May, [facility] [address] [id number] [place] [address] May, [facility] [address] [id number] [place] [address] Apr, [facility] [id number] [place] [address] Apr, [facility] [address] [id number] [place] [address] 13 Apr, 2014 [facility] [address] [id number] [place] [address] Apr, [facility] [address] [id number] [place] [address] Apr, [facility] [address] [id number] [place] [address] Apr, [facility] [address] [id number] [place] [address] Mar, [facility] [address] [id number] [place] [address] Mar, [facility] [address] [id number] [place] [address] Mar, [facility] [address] [id number] [place] [address] Mar, [facility] [address] [id number] [place] [address] Mar, 2013 [facility] [address] [id number] [place] [address] Mar, 2013 [facility] [address] [id number] [place] [address] Mar, [facility] [address] [id number] [place] [address] Mar, 2013 [facility] [address] [id number] [place] [address] Mar, [facility] [address] [id number] [place] [address] Mar, [facility] [address] [id number] [place] [address] Mar, [facility] [address] [id number] [place] [address] Mar, [facility] [address] [id number] [place] [address] Feb, 2013 [facility] [address] [id number] [place] [address] Feb, 2013 [facility] [address] [id number] [place] [address] Feb, [facility] [address] [id number] [facility] [address] Feb, [facility] [address] [facility] [id number] [place] [address] Feb, [facility] [address] [id number] [place] [address] Feb, [facility] [address] [id number] [place] [address] Feb, [facility] [address] [id number] [place] [address] Jan, [facility] [address] [id number] [place] [address] Jan, [facility] [address] [id number] [place] [address] Jan, [facility] [address] [id number] [place] [address] Dec, [facility] [address] [id number] [place] [address] Dec, [facility] [address] [id number] [place] [address] Dec, [facility] [address] [id number] [place] [address] Dec, [facility] [address] [id number] [place] [address] Sep, [facility] [address] [id number] [place] [address] Sep, [facility] [address] [id number] [place] [address] Sep, [facility] [address] [id number] [place] [address] Sep, [facility] [address] [id number] [place] [address] Sep, [facility] [address] [id number] [place] [address] Sep, [facility] [address] [id number] [place] [address] Sep, [facility] [address] [id number] [place] [address] Sep, [facility] [address] [id number] [place] [address] Aug, [facility] [address] [id number] [place] [address] Aug, [facility] [address] [id number] [place] [address] May, [facility] [address] [id number] [place] [address] May, [facility] [id number] [place] [address] Apr, [facility] [address] [id number] [place] [address] Apr, [facility] [address] [id number] [place] [address] Apr, [facility] [address] [id number] [place] [address] Apr, [facility] [id number] [place] [address] Apr, [facility] [address] [id number] [place] [address] Apr, [facility] [address] [id number] [place] [address] May, [facility] [id number] [place] [address] May, [facility] [address] [id number] [place] [address] 15 May, 2012 [facility] [address] [id number] [place] [address] 15 May, 2012 [facility] [address] [id number] [place] [address] 13 May, 2012 [facility] [address] [id number] [place] [address] 13 May, 2012 [facility] [address] [id number] [place] [address] 13 Apr, 2012 [facility] [address] [id number] [place] [address] 13 Apr, 2012 [facility] [address] [id number] [place] [address] 08 Apr, 2012 [facility] [address] [id number] [place] [address] Apr, [facility] [address] [id number] [place] [address] 08 Apr, 2012 [facility] [address] [id number] [place] [address] Apr, [facility] [address] [id number] [place] [address] Apr, [facility] [address] [id number] [place] [address] Apr, [facility] [address] [id number] [place] [address] Apr, [facility] [address] [id number] [place] [address] Apr, [facility] [address] [id number] [place] [address] Mar, [facility] [address] [id number] [place] [address] Mar, [facility] [address] [id number] [place] [address] Mar, [facility] [address] [id number] [place] [address] Mar, [facility] [address] [id number] [place] [address] Mar, [facility] [address] [id number] [place] [address] Mar, [facility] [address] [id number] [place] [address] Mar, [facility] [address] [id number] [place] [address] Mar, [facility] [address] [id number] [place] [address] Mar, [facility] [address] [id number] [place] [address] Feb, [facility] [address] [id number] [place] [address] Feb, [facility] [address] [id number] [place] [address] Feb, [facility] [address] [id number] [place] [address] Jan, [facility] [address] [id number] [place] [address] Jan, [facility] [address] [id number] [place] [address] Jan, [facility] [address] [id number] [place] [address] Jan, [facility] [address] [id number] [place] [address] Jan, [facility] [address] [id number] [place] [address] Jan, [facility] [address] [id number] [place] [address] Jan, [facility] [address] [id number] [place] [address] Jan, [facility] [address] [id number] [place] [address] Jan, [facility] [address] [id number] [place] [address] Jan, [facility] [address] [id number] [place] [address] Dec, [facility] [address] [id number] [place] [address] Dec, [facility] [address] [id number] [place] [address] Dec, [facility] [address] [id number] [place] [address] Dec, [facility] [address] [id number] [place] [address] Nov, [facility] [address] [id number] [place] [address] Nov, [facility] [address] [id number] [place] [address] Nov, [facility] [address] [id number] [place] [address] October, [facility] [address] [id number] [place] [address] October, [facility] [address] [id number] [place] [address] October, [facility] [address] [id number] [place] [address] October, [facility] [address] [id number] [place] [address] October, [facility] [address] [id number] [place] [address] October, [facility] [address] [id number] [place] [address] Aug, [facility] [address] [id number] [place] [address] Mar, [facility] [address] [id number] [place] [address] Nov, [facility] [place] [address] [id number] [place] [address] May, [facility] [place] [address] [id number] [place] [address] May, [facility] [place] [address] [id number] [place] [address] Apr, [facility] [place] [address] [id number] [place] [address] Mar, [facility] [place] [address] [id number] [place] [address] Mar, IMMUNIZATIONS No Known Immunizations SOCIAL HISTORY Never Assessed REASON FOR VISIT PLAN OF CARE VITAL SIGNS Height 64 in 2013-12-16 Weight 153.06 lbs 2013-12-16 Temperature 97 degrees Fahrenheit 2013-12-16 Heart Rate 84 bpm 2013-12-16 Respiratory Rate 18 2013-12-16 Blood pressure systolic 138 mmHg 2013-12-16 Blood pressure diastolic 82 mmHg 2013-12-16 MEDICATIONS Unknown Medications RESULTS No Results PROCEDURES No Known procedures INSTRUCTIONS MEDICATIONS ADMINISTERED No Known Medications MEDICAL (GENERAL) HISTORY Type Description Date Medical History Severe spinal stenosis [facility] cervical spine CT and MRI done [...]
[2020-02-02 20:01] VITALS: BP 149/82
--- OUTSIDE RECORDS SUMMARY | 2020-02-02 20:20 | XMS REPORT | Continuity of Care Document ---
Demographics Preferred Language Unknown Marital Status Unknown Synagogue Affiliation Unknown Race Unknown Ethnic Group Unknown Author Author [facility] Organization [facility] [employer] Address Unknown Phone Unavailable Allergies Active Description Code Type Severity Reaction Onset Reported/Identified Relationship to Patient Clinical Status Yes DILAUDID [id number] BRANDNAME N/A N/A Yes IODINE [id number] DRUG N/A N/A Yes LORTAB [id number] BRANDNAME N/A N/A Yes MORPHINE [id number] DRUG N/A N/A Yes No Known Environmental Allergies 28102 997 N/A N/A Yes iodine Drug Allergy N/A N/A 01/06/2010 Yes morphine Drug Allergy N/A N/A 01/06/2010 Yes iodine Drug Allergy 01/06/2010 Yes morphine Drug Allergy 01/06/2010 Yes Lyrica 75 mg capsule Drug Eileen rgy N/A N/A 09/16/2013 Yes iodine [id number] Drug Allergy Severe HIVES 05/24/2019 Yes morphine [id number] Drug Allergy Severe HIVES 05/24/2019 Yes hydrocodone [id number] Drug Aller gy Moderate Itching 05/24/2019 Yes oxycodone [id number] Drug Allergy Moderate Itching 05/24/2019 Medications There is no data. Problems Date Dx Coded Attending Type Code Diagnosis Diagnosed By 05/17/1018 NAHOMY HANCOCK SAFETY SECURITY OFFICER Ot M54.42 LUMBAGO WITH SCIATICA, LEFT SIDE 05/17/1355 NEHAL MARX APRN Ot S42.301D UNSP FX SHAFT OF HUMER, RIGHT ARM, SUBS 05/17/1355 NEHAL MARX APRN Ot W13.3XXD FALL THROUGH FLOOR, SUBSEQUENT ENCOUNTER 05/17/1519 BERENICE HOLLIDAY, SARAH Masterson Ot M48.02 [...] OTHER CARDIOVASCULAR DISEASES 01/06/2010 ROEL LOWERY APRN 311 DEPRESSIVE DISORDER NOS 01/06/2010 ROEL LOWERY [...] CHRONIC DISABLING DISEASES, OTHER CARDIOVASCULAR DISEASES 01/06/2010 OLEG ISAACS DO 311 DEPRESSIVE DISORDER NOS 01/06/2010 ISAACS YURIDIA AGUILAA K 627.9 MENOPAUSAL AND POSTMENOPAUSAL DISORDER UNSPECIFIED 01/06/2010 YURIDIA ISAACS DOA K 995.3 ALLERGY UNSPECIFIED NOT ELSEWHERE CLASSIFIED 01/06/2010 OLEG ISAACS DO V17.49 FAMILY HISTORY OF CERTAIN CHRONIC DISABLING [...] DEPRESSIVE DISORDER NOS 01/06/2010 EVAN CANO MD 627 .9 MENOPAUSAL AND POSTMENOPAUSAL DISORDER UNSPECIFIED 01/06/2010 EVAN CANO MD N 995 .3 ALLERGY UNSPECIFIED NOT ELSEWHERE CLASSIFIED 01/06/2010 EVAN CANO MD N V17 .49 FAMILY HISTORY OF CERTAIN CHRONIC DISABLING DISEASES, OTHER CARDIOVASCULAR DISEASES 01/06/2010 NAHOMY HANCOCK APRN S 311 DEPRESSIVE DISORDER NOS 01/06/2010 NAHOMY HANCOCK APRN S 627.9 MENOPAUSAL AND POSTMENOPAUSAL DISORDER UNSPECIFIED 01/06/2010 NAHOMY HANCOCK APRN S 995.3 ALLERGY UNSPECIFIED NOT ELSEWHERE CLASSIFIED 01/06/2010 NAHOMY HANCOCK APRN S V17.49 FAMILY HISTORY OF CERTAIN CHRONIC DISABL ING DISEASES, OTHER CARDIOVASCULAR DISEASES 01/06/2010 EVAN CANO MD N 311 DEPRESSIVE DISORDER NOS 01/06/2010 EVAN CANO MD 627 .9 MENOPAUSAL AND POSTMENOPAUSAL DISORDER UNSPECIFIED 01/06/2010 EVAN CANO MD N 995 .3 ALLERGY UNSPECIFIED NOT ELSEWHERE CLASSIFIED 01/06/2010 EVAN CANO MD N V17 .49 FAMILY HISTORY OF CERTAIN CHRONIC DISABLING DISEASES, OTHER CARDIOVASCULAR DISEASES 01/06/2010 MARISABEL ANDERSON APRN A 31 1 DEPRESSIVE DISORDER NOS 01/06/2010 MONICA FRUIT FARMWORKER, MARISABEL A 62 7.9 MENOPAUSAL AND POSTMENOPAUSAL DISORDER UNSPECIFIED 01/06/2010 MONICA FRUIT FARMWORKER, MARISABEL A 99 5.3 ALLERGY UNSPECIFIED NOT ELSEWHERE CLASSIFIED 01/06/2010 MONICA FRUIT FARMWORKER, MARISABEL A V17.49 FAMILY HISTORY OF CERTAIN CHRONIC DISABL ING DISEASES, OTHER CARDIOVASCULAR DISEASES 01/06/2010 KARISSA FRUIT FARMWORKER, NAHOMY S 311 DEPRESSIVE DISORDER NOS 01/06/2010 KARISSA FRUIT FARMWORKER, NAHOMY S 627.9 MENOPAUSAL AND POSTMENOPAUSAL DISORDER UNSPECIFIED 01/06/2010 KARISSA FRUIT FARMWORKER, NAHOMY S 995.3 ALLERGY UNSPECIFIED NOT ELSEWHERE CLASSIFIED 01/06/2010 KARISSA FRUIT FARMWORKER NAHOMY S V17.49 FAMILY HISTORY OF CERTAIN [...] DISABLING DISEASES, OTHER CARDIOVASCULAR DISEASES 01/06/2010 KARISSA FRUIT FARMWORKER, NAHOMY S 311 DEPRESSIVE DISORDER NOS 01/06/2010 KARISSA FRUIT FARMWORKER, NAHOMY S 627.9 MENOPAUSAL AND POSTMENOPAUSAL DISORDER UNSPECIFIED 01/06/2010 KARISSA FRUIT FARMWORKER, NAHOMY S 995.3 ALLERGY UNSPECIFIED NOT ELSEWHERE CLASSIFIED 01/06/2010 KARISSA FRUIT FARMWORKER, NAHOMY S V17.49 FAMILY HISTORY OF CERTAIN CHRONIC DISABL ING DISEASES, OTHER CARDIOVASCULAR DISEASES 01/06/2010 MARIALUISA DPM, ORLY 311 DEPRESSIVE DISORDER NOS 01/06/2010 MARIALUISA DPM, ORLY 627.9 MENOPAUSAL AND POSTMENOPAUSAL DISORDER UNSPECIFIED 01/06/2010 MARIALUISA DPM, ORLY 995.3 ALLERGY UNSPECIFIED NOT ELSEWHERE CLASSIFIED 01/06/2010 MARIALUISA DPM, ORLY V17.49 FAMILY HISTORY OF CERTAIN CHRONIC DISABLING DISEASES, OTHER CARDIOVASCULAR DISEASES 01/06/2010 KARISSA FRUIT FARMWORKER, NAHOMY S 311 DEPRESSIVE DISORDER NOS 01/06/2010 KARISSA FRUIT FARMWORKER, NAHOMY S 627.9 MENOPAUSAL AND POSTMENOPAUSAL DISORDER UNSPECIFIED 01/06/2010 KARISSA FRUIT FARMWORKER, NAHOMY S 995.3 ALLERGY UNSPECIFIED NOT ELSEWHERE CLASSIFIED 01/06/2010 KARISSA FRUIT FARMWORKER, NAHOMY S V17.49 FAMILY HISTORY OF CERTAIN CHRONIC DISABL ING DISEASES, OTHER CARDIOVASCULAR DISEASES 01/06/2010 KARISSA FRUIT FARMWORKER NAHOMY S 311 DEPRESSIVE DISORDER NOS 01/06/2010 KARISSA FRUIT FARMWORKER, NAHOMY S 627.9 MENOPAUSAL AND POSTMENOPAUSAL DISORDER UNSPECIFIED 01/06/2010 KARISSA FRUIT FARMWORKER, NAHOMY S 995.3 ALLERGY UNSPECIFIED NOT ELSEWHERE CLASSIFIED 01/06/2010 KARISSA FRUIT FARMWORKER, NAHOMY S V17.49 FAMILY HISTORY OF CERTAIN CHRONIC DISABL ING DISEASES, OTHER CARDIOVASCULAR DISEASES 01/06/2010 KARISSA FRUIT FARMWORKER, NAHOMY S 311 DEPRESSIVE DISORDER NOS 01/06/2010 KARISSA FRUIT FARMWORKER, NAHOMY S 627.9 MENOPAUSAL AND POSTMENOPAUSAL DISORDER UNSPECIFIED 01/06/2010 KARISSA FRUIT FARMWORKER, NAHOMY S 995.3 ALLERGY UNSPECIFIED NOT ELSEWHERE CLASSIFIED 01/06/2010 KARISSA FRUIT FARMWORKER, NAHOMY S V17.49 FAMILY HISTORY OF CERTAIN [...] HIGH RISK 03/21/2010 EVAN CANO MD N 300 .00 ANXIETY UNSPEC 03/21/2010 EVAN CANO MD V58 .69 MEDICATION HIGH RISK 03/21/2010 NAHOMY HANCOCK APRN S 300.00 ANXIETY UNSPEC 03/21/2010 NAHOMY HANCOCK APRN S V58.69 MEDICATION HIGH RISK 03/21/2010 EVAN CANO MD N 300 .00 ANXIETY UNSPEC 03/21/2010 EVAN CANO MD V58 .69 MEDICATION HIGH RISK 03/21/2010 MARISABEL ANDERSON APRN A 300.00 ANXIETY UNSPEC 03/21/2010 MARISABEL ANDERSON APRN A V58.69 MEDICATION HIGH RISK 03/21/2010 NAHOMY HANCOCK APRN [...] ORLY V58.69 MEDICATION HIGH RISK 03/21/2010 KARISSA FRUIT FARMWORKER, NAHOMY S 300.00 ANXIETY UNSPEC 03/21/2010 KARISSA FRUIT FARMWORKER, NAHOMY S V58.69 MEDICATION HIGH RISK 03/21/2010 MARIALUISA DPM, ORLY 300.00 ANXIETY UNSPEC 03/21/2010 MARIALUISA DPM, ORLY V58.69 MEDICATION HIGH RISK 03/21/2010 KARISSA FRUIT FARMWORKER, NAHOMY S 300.00 ANXIETY UNSPEC 03/21/2010 KARISSA FRUIT FARMWORKER, NAHOMY S V58.69 MEDICATION HIGH RISK 03/21/2010 KARISSA FRUIT FARMWORKER, NAHOMY S 300.00 ANXIETY UNSPEC 03/21/2010 KARISSA FRUIT FARMWORKER, NAHOMY S V58.69 MEDICATION HIGH RISK 03/21/2010 KARISSA FRUIT FARMWORKER, NAHOMY S 300.00 ANXIETY UNSPEC 03/21/2010 KARISSA BRIZUELAN, NAHOMY S V58.69 MEDICATION HIGH RISK 04/01/2010 110.1 ONYC HOMYCOSIS 04/01/2010 110.1 ONYC HOMYCOSIS 04/01/2010 110.1 ONYC HOMYCOSIS 04/01/2010 DAVEY STEPHENSON MD 110.1 ONYCHOMYCOSIS 04/01/2010 ROEL LOWERY APRN R 110.1 ONYCHOMYCOSIS 04/01/2010 DAVEY STEPHENSON MD 110.1 ONYCHOMYCOSIS 04/01/2010 SHITAL AGUILA OLEG K 110.1 ONYCHOMYCOSIS 04/01/2010 DAVEY STEPHENSON MD 110.1 ONYCHOMYCOSIS 04/01/2010 KATELYN HENRIQUEZ APRN 11 0.1 ONYCHOMYCOSIS 04/01/2010 EVAN CANO MD 110 .1 ONYCHOMYCOSIS 04/01/2010 NAHOMY HANCOCK APRN S 110.1 ONYCHOMYCOSIS 04/01/2010 EVAN CANO MD 110 .1 ONYCHOMYCOSIS 04/01/2010 MARISABEL ANDERSON APRN 11 0.1 ONYCHOMYCOSIS 04/01/2010 LIDA HANCOCK APRNA S 110.1 ONYCHOMYCOSIS 04/01/2010 KATELYN HENRIQUEZ APRN 11 0.1 ONYCHOMYCOSIS 04/01/2010 DAVEY STEPHENSON MD 110.1 ONYCHOMYCOSIS 04/01/2010 MARIALUISA DPM, ORLY 110.1 ONYCHOMYCOSIS 04/01/2010 KARISSA FRUIT FARMWORKER, NAHOMY S 110.1 ONYCHOMYCOSIS 04/01/2010 MARIALUISA DPM, ORLY 110.1 ONYCHOMYCOSIS 04/01/2010 KARISSA FRUIT FARMWORKER, NAHOMY S 110.1 ONYCHOMYCOSIS 04/01/2010 KARISSA FRUIT FARMWORKER, NAHOMY S 110.1 ONYCHOMYCOSIS 04/01/2010 KARISSA FRUIT FARMWORKER, NAHOMY S 110.1 ONYCHOMYCOSIS 07/18/2010 783.21 LOS S OF WEIGHT 07/18/2010 783.21 LOS S OF WEIGHT 07/18/2010 783.21 LOS S OF WEIGHT 07/18/2010 DAVEY STEPHENSON MD 783.2 1 LOSS OF WEIGHT 07/18/2010 ROEL LOWERY APRN R 783.21 LOSS OF WEIGHT 07/18/2010 DAVEY STEPHENSON MD 783.2 1 LOSS OF WEIGHT 07/18/2010 OLEG ISAACS DO K 783.21 LOSS OF WEIGHT 07/18/2010 DAVEY STEPHENSON MD 783.2 1 LOSS OF WEIGHT 07/18/2010 KATELYN HENRIQUEZ APRN 783.21 LOSS OF WEIGHT 07/18/2010 EVAN CANO MD N 783 .21 LOSS OF WEIGHT 07/18/2010 KARISSA VALLE, NAHOMY S 783.21 LOSS OF WEIGHT 07/18/2010 EVAN CANO MD N 783 .21 LOSS OF WEIGHT 07/18/2010 MONICAMILLER VALLE MARISABEL A 783.21 LOSS OF WEIGHT 07/18/2010 KARISSA VALLE, NAHOMY S 783.21 LOSS OF WEIGHT 07/18/2010 KATELYN HENRIQUEZ APRN 783.21 LOSS OF WEIGHT 07/18/2010 DAVEY STEPHENSON MD 783.2 1 LOSS OF WEIGHT 07/18/2010 MARAILUISA DPM, ORLY 783.21 LOSS OF WEIGHT 07/18/2010 KARISSA VALLE, NAHOMY S 783.21 LOSS OF WEIGHT 07/18/2010 MARIALUISA DPM, ORLY 783.21 LOSS OF WEIGHT 07/18/2010 KARISSA VALLE, NAHOMY S 783.21 LOSS OF WEIGHT 07/18/2010 KARISSA BRIZUELAN, NAHOMY S 783.21 LOSS OF WEIGHT 07/18/2010 KARISSA BRIZUELAN, NAHOMY S 783.21 LOSS OF WEIGHT 11/24/2010 616.10 Vag initis Vulvovaginitis Unspecified 11/24/2010 616.10 Vag initis Vulvovaginitis Unspecified 11/24/2010 616.10 Vag initis Vulvovaginitis Unspecified 11/24/2010 DAVEY STEPHENSON MD 616.1 0 Vaginitis Vulvovaginitis Unspecified 11/24/2010 ROEL LOWERY APRN 616.10 Vaginitis Vulvovaginitis Unspecified 11/24/2010 DAVEY STEPHENSON MD 616.1 0 Vaginitis Vulvovaginitis Unspecified 11/24/2010 OLEG ISAACS DO 616.10 Vaginitis Vulvovaginitis Unspecified 11/24/2010 DAVEY STEPHENSON MD 616.1 0 Vaginitis Vulvovaginitis Unspecified 11/24/2010 KATELYN HENRIQUEZ APRN 616.10 Vaginitis Vulvovaginitis Unspecified 11/24/2010 EVAN CANO MD N 616 .10 Vaginitis Vulvovaginitis Unspecified 11/24/2010 LIDA HANCOCK APRNA S 616.10 Vaginitis Vulvovaginitis Unspecified 11/24/2010 EVAN CANO MD N 616 .10 Vaginitis Vulvovaginitis Unspecified 11/24/2010 MONICA VALLE MARISABEL A 616.10 Vaginitis Vulvovaginitis Unspecified 11/24/2010 KARISSA VALLE, NAHOMY S 616.10 Vaginitis Vulvovaginitis Unspecified 11/24/2010 KATELYN HENRIQUEZ APRN 616.10 Vaginitis Vulvovaginitis Unspecified 11/24/2010 DAVEY STEPHENSON MD 616.1 0 Vaginitis Vulvovaginitis Unspecified 11/24/2010 MARIALUISA LORENZ, ORLY 616.10 Vaginitis Vulvovaginitis Unspecified 11/24/2010 KARISSA FRUIT FARMWORKER, NAHOMY S 616.10 Vaginitis Vulvovaginitis Unspecified 11/24/2010 MARIALUISA DPM, ORLY 616.10 Vaginitis Vulvovaginitis Unspecified 11/24/2010 KARISSA FRUIT FARMWORKER, NAHOMY S 616.10 Vaginitis Vulvovaginitis Unspecified 11/24/2010 KARISSA FRUIT FARMWORKER, NAHOMY S 616.10 Vaginitis Vulvovaginitis Unspecified 11/24/2010 KARISSA FRUIT FARMWORKER, NAHOMY S 616.10 Vaginitis Vulvovaginitis Unspecified 12/01/2010 289.3 Lymp hadenitis Unspecified Except Mesenteric 12/01/2010 289.3 Lymp hadenitis Unspecified Except Mesenteric 12/01/2010 289.3 Lymp hadenitis Unspecified Except Mesenteric 12/01/2010 DAVEY STEPHENSON MD 289.3 Lymphadenitis Unspecified Except Mesenteric 12/01/2010 ROEL LOWERY APRN R 289.3 Lymphadenitis Unspecified Except Mesenteric 12/01/2010 DAVEY STEPHENSON MD 289.3 Lymphadenitis Unspecified Except Mesenteric 12/01/2010 OLEG ISAACS DO K 289.3 Lymphadenitis Unspecified Except Mesenteric 12/01/2010 DAVEY STEPHENSON MD 289.3 Lymphadenitis Unspecified Except Mesenteric 12/01/2010 KATELYN HENRIQUEZ APRN 28 9.3 Lymphadenitis Unspecified Except Mesenteric 12/01/2010 EVAN CANO MD 289 .3 Lymphadenitis Unspecified Except Mesenteric 12/01/2010 KARISSA BRIZUELAN, NAHOMY S 289.3 Lymphadenitis Unspecified Except Mesenteric 12/01/2010 EVAN CANO MD 289 .3 Lymphadenitis Unspecified Except Mesenteric 12/01/2010 MONICA VALLE, MARISABEL A 28 9.3 Lymphadenitis Unspecified Except Mesenteric 12/01/2010 KARISSA FRUIT FARMWORKER, NAHOMY S 289.3 Lymphadenitis Unspecified Except Mesenteric 12/01/2010 KATELYN HENRIQUEZ APRN 28 9.3 Lymphadenitis Unspecified Except Mesenteric 12/01/2010 DAVEY STEPHENSON MD 289.3 Lymphadenitis Unspecified Except Mesenteric 12/01/2010 MARIALUISA DPM, ORLY 289.3 Lymphadenitis Unspecified Except Mesenteric 12/01/2010 KARISSA FRUIT FARMWORKER, NAHOMY S 289.3 Lymphadenitis Unspecified Except Mesenteric 12/01/2010 MARIALUISA DPM, ORLY 289.3 Lymphadenitis Unspecified Except Mesenteric 12/01/2010 KARISSA FRUIT FARMWORKER, NAHOMY S 289.3 Lymphadenitis Unspecified Except Mesenteric 12/01/2010 KARISSA FRUIT FARMWORKER, NAHOMY S 289.3 Lymphadenitis Unspecified Except Mesenteric 12/01/2010 KARISSA FRUIT FARMWORKER, NAHOMY S 289.3 Lymphadenitis Unspecified Except Mesenteric 01/06/2011 Ot 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 01/06/2011 Ot V62.84 SLIM CIDAL IDEATION 01/10/2011 618.00 Uns pecified Prolapse Of Vaginal Peña 01/10/2011 618.00 Uns pecified Prolapse Of Vaginal Peña 01/10/2011 618.00 Uns pecified Prolapse Of Vaginal Peña 01/10/2011 DAVEY STEPHENSON MD 618.0 0 Unspecified Prolapse Of Vaginal Peña 01/10/2011 ROEL LOWERY APRN R 618.00 Unspecified Prolapse Of Vaginal Peña 01/10/2011 DAVEY STEPHENSON MD 618.0 0 Unspecified Prolapse Of Vaginal Peña 01/10/2011 OLEG ISAACS DO K 618.00 Unspecified Prolapse Of Vaginal Peña [...] .00 Unspecified Prolapse Of Vaginal Peña 01/10/2011 MONICA VALLE MARISBAEL A 618.00 Unspecified Prolapse Of Vaginal Peña 01/10/2011 KARISSA VALLE, NAHOMY S 618.00 Unspecified Prolapse Of Vaginal Peña 01/10/2011 KATELYN HENRIQUEZ APRN 618.00 Unspecified Prolapse Of Vaginal Peña 01/10/2011 DAVEY STEPHENSON MD 618.0 0 Unspecified Prolapse Of Vaginal Peña 01/10/2011 MARIALUISA LORENZ, ORLY 618.00 Unspecified Prolapse Of Vaginal Peña 01/10/2011 KARISSA VALLE, NAHOMY S 618.00 Unspecified Prolapse Of Vaginal Peña 01/10/2011 MARIALUISA DPM, ORLY 618.00 Unspecified Prolapse Of Vaginal Peña 01/10/2011 KARISSA VALLE, NAHOMY S 618.00 Unspecified Prolapse Of Vaginal Peña 01/10/2011 KARISSA VALLE, NAHOMY S 618.00 Unspecified Prolapse Of Vaginal Peña 01/10/2011 KARISSA VALLE, NAHOMY S 618.00 Unspecified Prolapse Of Vaginal Peña 01/19/2011 Ot 296.20 DEP RESS DISORDER- UNSPEC 01/19/2011 Ot 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 03/16/2011 564.1 IRRI TABLE BOWEL SYNDROME 03/16/2011 564.1 IRRI TABLE BOWEL SYNDROME 03/16/2011 564.1 IRRI TABLE BOWEL SYNDROME 03/16/2011 DAVEY STEPHENSON MD 564.1 IRRITABLE BOWEL SYNDROME 03/16/2011 ROEL LOWERY APRN R 564.1 IRRITABLE BOWEL SYNDROME 03/16/2011 DAVEY STEPHENSON [...] DPM, ORLY 564.1 IRRITABLE BOWEL SYNDROME 03/16/2011 LIDA HANCOCK APRNA S 564.1 IRRITABLE BOWEL SYNDROME 03/16/2011 ORLY ELAM DPM 564.1 IRRITABLE BOWEL SYNDROME 03/16/2011 NAHOMY HANCOCK APRN 564.1 IRRITABLE BOWEL SYNDROME 03/16/2011 NAHOMY HANCOCK APRN 564.1 IRRITABLE BOWEL SYNDROME 03/16/2011 NAHOMY HANCOCK APRN 564.1 IRRITABLE BOWEL SYNDROME 11/08/2011 616.2 Cyst [...] 616.2 Cyst Of Bartholin's Gland 11/08/2011 ISAACS DO OLEG K 623.5 Leukorrhea Not Specified As [...] .5 Leukorrhea Not Specified As Infective 11/08/2011 KARISSA FRUIT FARMWORKER, NAHOMY S 616.2 Cyst Of Bartholin's Gland 11/08/2011 KARISSA VALLE, NAHOMY S 623.5 Leukorrhea Not Specified As Infective 11/08/2011 EVAN CANO MD N 616 .2 Cyst Of Bartholin's Gland 11/08/2011 EVAN CANO MD N 623 .5 Leukorrhea Not Specified As Infective 11/08/2011 MONICA FRUIT FARMWORKER, MARISABEL A 61 6.2 Cyst Of Bartholin's Gland 11/08/2011 MONICA FRUIT FARMWORKER, MARISABEL A 62 3.5 Leukorrhea Not Specified As Infective 11/08/2011 LIDA HANCOCK APRNA S 616.2 Cyst Of Bartholin's Gland 11/08/2011 LIDA HANCOCK APRNA S 623.5 Leukorrhea Not Specified As Infective 11/08/2011 FLORENCE VALLE, KATELYN Villarreal 61 6.2 Cyst Of Bartholin's Gland 11/08/2011 FLORENCE VALLE, KATELYN Villarreal 62 3.5 Leukorrhea Not Specified As Infective 11/08/2011 DAVEY STEPHENSON MD 616.2 Cyst Of Bartholin's Gland 11/08/2011 DAVEY STEPHENSON MD 623.5 Leukorrhea Not Specified As Infective 11/08/2011 MARIALUISA DPM, ORLY 616.2 Cyst Of Bartholin's Gland 11/08/2011 MARIALUISA DPM, ORLY 623.5 Leukorrhea Not Specified As Infective 11/08/2011 NAHOMY HANCOCK APRN S 616.2 Cyst Of Bartholin's Gland 11/08/2011 KRISTYN HANCOCK APRNNDA S 623.5 Leukorrhea Not Specified As Infective 11/08/2011 MARIALUISA DPM, ORLY 616.2 Cyst Of Bartholin's Gland 11/08/2011 MARIALUISA DPM, ORLY 623.5 Leukorrhea Not Specified As Infective 11/08/2011 LIDA HANCOCK APRNA S 616.2 Cyst Of Bartholin's Gland 11/08/2011 LIDA HANCOCK APRNA S 623.5 Leukorrhea Not Specified As Infective 11/08/2011 NAHOMY HNACOCK APRN S 616.2 Cyst Of Bartholin's Gland 11/08/2011 KARISSA FRUIT FARMWORKER, NAHOMY S 623.5 Leukorrhea Not Specified As Infective 11/08/2011 KARISSA FRUIT FARMWORKER, NAHOMY S 616.2 Cyst Of Bartholin's Gland 11/08/2011 KARISSA FRUIT FARMWORKER, NAHOMY S 623.5 Leukorrhea Not Specified As [...] AND UNSPECIFIED HYPERLIPIDEMIA 11/23/2011 KATELYN HENRIQUEZ APRN 27 2.4 OTHER AND UNSPECIFIED HYPERLIPIDEMIA 11/23/2011 EVAN CANO MD N 272 .4 OTHER AND UNSPECIFIED HYPERLIPIDEMIA 11/23/2011 KRISTYN HANCOCK APRNNDA S 272.4 OTHER AND UNSPECIFIED HYPERLIPIDEMIA 11/23/2011 EAVN CANO MD 272 .4 OTHER AND UNSPECIFIED HYPERLIPIDEMIA 11/23/2011 MONICA VALLE MARISABEL A 27 2.4 OTHER AND UNSPECIFIED HYPERLIPIDEMIA 11/23/2011 KARISSA VALLE, NAHOMY S 272.4 OTHER AND UNSPECIFIED HYPERLIPIDEMIA 11/23/2011 KATELYN HENRIQUEZ APRN T 27 2.4 OTHER AND UNSPECIFIED HYPERLIPIDEMIA 11/23/2011 DAVEY STEPHENSON MD 272.4 OTHER AND UNSPECIFIED HYPERLIPIDEMIA 11/23/2011 DOLORES ELAM DPMIN 272.4 OTHER AND UNSPECIFIED HYPERLIPIDEMIA 11/23/2011 KARISSA FRUIT FARMWORKER, NAHOMY S 272.4 OTHER AND UNSPECIFIED HYPERLIPIDEMIA 11/23/2011 MARIALUISA DPM, ORLY 272.4 OTHER AND UNSPECIFIED HYPERLIPIDEMIA 11/23/2011 KARISSA FRUIT FARMWORKER, NAHOMY S 272.4 OTHER AND UNSPECIFIED HYPERLIPIDEMIA 11/23/2011 KARISSA FRUIT FARMWORKER, NAHOMY S 272.4 OTHER AND UNSPECIFIED HYPERLIPIDEMIA 11/23/2011 KARISSA FRUIT FARMWORKER, NAHOMY S 272.4 OTHER AND UNSPECIFIED HYPERLIPIDEMIA 01/02/2012 477.0 EILEEN RGIC RHINITIS DUE TO POLLEN 01/02/2012 477.0 EILEEN RGIC RHINITIS DUE TO POLLEN 01/02/2012 477.0 EILEEN RGIC RHINITIS DUE TO POLLEN 01/02/2012 DAVEY STEPHENSON MD 477.0 ALLERGIC RHINITIS DUE TO POLLEN 01/02/2012 LOWERY TORI ROEL R 477.0 ALLERGIC RHINITIS DUE TO POLLEN 01/02/2012 DAVEY STEPHENSON MD 477.0 ALLERGIC RHINITIS DUE TO POLLEN 01/02/2012 OLEG ISAACS DO K 477.0 ALLERGIC RHINITIS DUE TO POLLEN 01/02/2012 DAVEY STEPHENSON MD 477.0 ALLERGIC RHINITIS DUE TO POLLEN 01/02/2012 KATELYN HENRIQUEZ APRN 47 7.0 ALLERGIC RHINITIS DUE TO POLLEN 01/02/2012 EVAN CANO MD 477 .0 ALLERGIC RHINITIS DUE TO POLLEN 01/02/2012 LIDA HANCOCK APRNA S 477.0 ALLERGIC RHINITIS DUE TO POLLEN 01/02/2012 EVAN CANO MD 477 .0 ALLERGIC RHINITIS DUE TO POLLEN 01/02/2012 MONICANataliya VALLE MARISABEL A 47 7.0 ALLERGIC RHINITIS DUE TO POLLEN 01/02/2012 KARISSA VALLE NAHOMY S 477.0 ALLERGIC RHINITIS DUE TO POLLEN 01/02/2012 KATELYN HENRIQUEZ APRN 47 7.0 ALLERGIC RHINITIS DUE TO POLLEN 01/02/2012 DAVEY STEPHENSON MD 477.0 ALLERGIC RHINITIS DUE TO POLLEN 01/02/2012 MARIALUISA DPM, ORLY 477.0 ALLERGIC RHINITIS DUE TO POLLEN 01/02/2012 KARISSA FRUIT FARMWORKER, NAHOMY S 477.0 ALLERGIC RHINITIS DUE TO POLLEN 01/02/2012 MARIALUISA DPM, ORLY 477.0 ALLERGIC RHINITIS DUE TO POLLEN 01/02/2012 KARISSA FRUIT FARMWORKER, NAHOMY S 477.0 ALLERGIC RHINITIS DUE TO POLLEN 01/02/2012 KARISSA FRUIT FARMWORKER, NAHOMY S 477.0 ALLERGIC RHINITIS DUE TO POLLEN 01/02/2012 KARISSA FRUIT FARMWORKER, NAHOMY S 477.0 ALLERGIC RHINITIS DUE TO [...] SITES WITHOUT INFECTION 01/09/2012 ROEL LOWERY APRN 787.01 NAUSEA WITH VOMITING 01/09/2012 ROLE LOWERY APRN 919.4 INSECT BITE NONVENOMOUS OF OTHER MULTIPL E AND UNSPECIFIED SITES WITHOUT INFECTION 01/09/2012 DAVEY STEPHENSON MD 787.0 1 NAUSEA WITH VOMITING 01/09/2012 DAVEY STEPHENSON MD 919.4 INSECT BITE NONVENOMOUS OF OTHER MULTIPLE AND UNSPECIFIED SITES WITHOUT INFECTION 01/09/2012 OLEG ISAACS DO 787.01 NAUSEA WITH VOMITING 01/09/2012 OLEG ISAACS DO K 919.4 INSECT BITE NONVENOMOUS OF OTHER [...] SITES WITHOUT INFECTION 01/09/2012 NAHOMY HANCOCK APRN 787.01 NAUSEA WITH VOMITING 01/09/2012 NAHOMY HANCOCK APRN 919.4 INSECT BITE NONVENOMOUS OF OTHER MULTIPL E AND UNSPECIFIED SITES WITHOUT INFECTION 01/09/2012 EVAN CANO MD N 787 .01 NAUSEA WITH VOMITING 01/09/2012 EVAN CANO MD N 919 .4 INSECT BITE NONVENOMOUS OF OTHER MULTIPLE AND UNSPECIFIED SITES WITHOUT INFECTION 01/09/2012 MONICA APRN, MARISABEL A 787.01 NAUSEA WITH VOMITING 01/09/2012 MONICA APRN, MARISABEL A 91 9.4 INSECT BITE NONVENOMOUS OF OTHER MULTIPLE AND UNSPECIFIED SITES WITHOUT INFECTION 01/09/2012 KRISTYN HANCOCK APRNNDA S 787.01 NAUSEA WITH VOMITING 01/09/2012 KRISTYN [...] MULTIPLE AND UNSPECIFIED SITES WITHOUT INFECTION 01/09/2012 KRISTYN HANCOCK APRNNDA S 787.01 NAUSEA WITH VOMITING 01/09/2012 KRISTYN [...] E AND UNSPECIFIED SITES WITHOUT INFECTION 01/09/2012 KRISTYN HANCOCK APRNNDA S 787.01 NAUSEA WITH VOMITING 01/09/2012 KARISSA VALLE NAHOMY S 919.4 INSECT BITE NONVENOMOUS OF OTHER MULTIPL E AND UNSPECIFIED SITES WITHOUT INFECTION 01/09/2012 NAHOMY [...] PAP SMEAR SCREENING 01/31/2012 ROEL LOWERY APRN 616.2 CYST OF [place] 01/31/2012 ROEL LOWERY APRN R 618.01 CYSTOCELE MIDLINE 01/31/2012 MYNOR LOWERY APRNIA R 618.04 RECTOCELE 01/31/2012 MYNOR LOWERY APRNIA R 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) 01/31/2012 [...] 618.01 CYSTOCELE MIDLINE 01/31/2012 KATELYN HENRIQUEZ APRN T 618.04 RECTOCELE 01/31/2012 KATELYN HENRIQUEZ APRN 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) 01/31/2012 KATELYN HENRIQUEZ APRN V76.10 BREAST CANCER SCREENING 01/31/2012 KATELYN HENRIQUEZ APRN V76.47 VAGINAL PAP SMEAR SCREENING 01/31/2012 EVAN CANO MD 616 .2 CYST OF [place] 01/31/2012 EVAN CANO MD 618 .01 CYSTOCELE MIDLINE 01/31/2012 EVAN CANO MD 618 .04 RECTOCELE 01/31/2012 EVAN CANO MD 788 .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) 01/31/2012 EVAN CANO MD V76 .10 BREAST CANCER SCREENING 01/31/2012 EVAN CANO MD V76 .47 VAGINAL PAP SMEAR SCREENING 01/31/2012 NAHOMY HANCOCK APRN 616.2 CYST OF [place] 01/31/2012 NAHOMY HANCOCK APRN S 618.01 CYSTOCELE MIDLINE 01/31/2012 NAHOMY HANCOCK APRN S 618.04 RECTOCELE 01/31/2012 NAHOMY HANCOCK APRN S 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) 01/31/2012 NAHOMY HANCOCK APRN S V76.10 BREAST CANCER SCREENING 01/31/2012 NAHOMY HANCOCK APRN V76.47 VAGINAL PAP SMEAR SCREENING 01/31/2012 EVAN CANO MD 616 .2 CYST OF [place] 01/31/2012 EVAN CANO MD N 618 .01 CYSTOCELE MIDLINE 01/31/2012 EVAN CANO MD 618 .04 RECTOCELE 01/31/2012 EVAN CANO MD 788 .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) 01/31/2012 EVAN CANO MD V76 .10 BREAST CANCER SCREENING 01/31/2012 EVAN CANO MD V76 .47 VAGINAL PAP SMEAR SCREENING 01/31/2012 MONICA FRUIT FARMWORKER, MARISABEL A 61 6.2 CYST OF [place] 01/31/2012 MONICA FRUIT FARMWORKER, MARISABEL A 618.01 CYSTOCELE MIDLINE 01/31/2012 MONICA FRUIT FARMWORKER, MARISABEL A 618.04 RECTOCELE 01/31/2012 MONICA FRUIT FARMWORKER, MARISABEL A 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) 01/31/2012 MONICA BRIZUELAN, MARISABEL A V76.10 BREAST CANCER SCREENING 01/31/2012 MONICA BRIZUELAN, MARISABEL A V76.47 VAGINAL PAP SMEAR SCREENING 01/31/2012 NAHOMY HANCOCK APRN S 616.2 CYST OF [place] 01/31/2012 LIDA HANCOCK APRNA S 618.01 CYSTOCELE MIDLINE 01/31/2012 LIDA HANCOCK APRNA S 618.04 RECTOCELE 01/31/2012 LIDA HANCOCK APRNA S 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) 01/31/2012 LIDA HANCOCK APRNA S V76.10 BREAST CANCER SCREENING 01/31/2012 NAHOMY [...] V76.47 VAGINAL PAP SMEAR SCREENING 01/31/2012 KARISSA FRUIT FARMWORKER, NAHOMY S 616.2 CYST OF [place] 01/31/2012 KARISSA FRUIT FARMWORKER, NAHOMY S 618.01 CYSTOCELE MIDLINE 01/31/2012 KARISSA FRUIT FARMWORKER, NAHOMY S 618.04 RECTOCELE 01/31/2012 KARISSA FRUIT FARMWORKER, NAHOMY S 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) 01/31/2012 KARISSA FRUIT FARMWORKER, NAHOMY S V76.10 BREAST CANCER SCREENING 01/31/2012 KARISSA FRUIT FARMWORKER, NAHOMY S V76.47 VAGINAL PAP SMEAR SCREENING 01/31/2012 MARIALUISA DPM, ORLY 616.2 CYST OF [place] 01/31/2012 MARIALUISA DPM, ORLY 618.01 CYSTOCELE MIDLINE 01/31/2012 MARIALUISA DPM, ORLY 618.04 RECTOCELE 01/31/2012 MARIALUISA DPM, ORLY 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) 01/31/2012 MARIALUISA DPM, ORLY V76.10 BREAST CANCER SCREENING 01/31/2012 MARIALUISA DPM, ORLY V76.47 VAGINAL PAP SMEAR SCREENING 01/31/2012 KARISSA FRUIT FARMWORKER, NAHOMY S 616.2 CYST OF [place] 01/31/2012 KARISSA FRUIT FARMWORKER, NAHOMY S 618.01 CYSTOCELE MIDLINE 01/31/2012 KARISSA FRUIT FARMWORKER, NAHOMY S 618.04 RECTOCELE 01/31/2012 KARISSA FRUIT FARMWORKER, NAHOMY S 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) 01/31/2012 KARISSA FRUIT FARMWORKER, NAHOMY S V76.10 BREAST CANCER SCREENING 01/31/2012 KARISSA FRUIT FARMWORKER, NAHOMY S V76.47 VAGINAL PAP SMEAR SCREENING 01/31/2012 KARISSA FRUIT FARMWORKER, NAHOMY S 616.2 CYST OF [place] 01/31/2012 KARISSA FRUIT FARMWORKER, NAHOMY S 618.01 CYSTOCELE MIDLINE 01/31/2012 KARISSA FRUIT FARMWORKER, NAHOMY S 618.04 RECTOCELE 01/31/2012 KARISSA FRUIT FARMWORKER, NAHOMY S 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) 01/31/2012 KARISSA FRUIT FARMWORKER, NAHOMY S V76.10 BREAST CANCER SCREENING 01/31/2012 KARISSA FRUIT FARMWORKER, NAHOMY S V76.47 VAGINAL PAP SMEAR SCREENING 01/31/2012 KARISSA FRUIT FARMWORKER, NAHOMY S 616.2 CYST OF [place] 01/31/2012 KARISSA FRUIT FARMWORKER, NAHOMY S 618.01 CYSTOCELE MIDLINE 01/31/2012 KARISSA FRUIT FARMWORKER, NAHOMY S 618.04 RECTOCELE 01/31/2012 KARISSA FRUIT FARMWORKER, NAHOMY S 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) 01/31/2012 KARISSA FRUIT FARMWORKER, NAHOMY S V76.10 BREAST CANCER SCREENING 01/31/2012 KARISSA FRUIT FARMWORKER, NAHOMY S V76.47 VAGINAL PAP SMEAR SCREENING [...] N 788 .30 URINARY INCONTINENCE UNSPECIFIED 02/05/2012 NAHOMY HANCOCK APRN S 596.89 OTHER SPECIFIED DISORDERS OF BLADDER 02/05/2012 NAHOMY HANCOCK APRN S 625.9 PELVIC PAIN 02/05/2012 NAHOMY HANCOCK APRN S 788.30 URINARY INCONTINENCE UNSPECIFIED 02/05/2012 EVAN CANO MD N 596 .89 OTHER SPECIFIED DISORDERS OF BLADDER 02/05/2012 EVAN CANO MD N 625 .9 PELVIC PAIN 02/05/2012 EVAN CANO MD N 788 .30 URINARY INCONTINENCE UNSPECIFIED 02/05/2012 MONICA FRUIT FARMWORKER, MARISABEL A 596.89 OTHER SPECIFIED DISORDERS OF BLADDER 02/05/2012 MONICA FRUIT FARMWORKER, MARISABEL A 62 5.9 PELVIC PAIN 02/05/2012 MONICA FRUIT FARMWORKER, MARISABEL A 788.30 URINARY INCONTINENCE UNSPECIFIED 02/05/2012 KARISSA FRUIT FARMWORKER, NAHOMY S 596.89 OTHER SPECIFIED DISORDERS OF BLADDER 02/05/2012 KARISSA FRUIT FARMWORKER, NAHOMY S 625.9 PELVIC PAIN 02/05/2012 KARISSA FRUIT FARMWORKER, NAHOMY S 788.30 URINARY INCONTINENCE UNSPECIFIED 02/05/2012 FLORENCE TORI KATELYN T 596.89 OTHER SPECIFIED DISORDERS OF BLADDER 02/05/2012 FLORENCE TORI KATELYN T 62 5.9 PELVIC PAIN 02/05/2012 FLORENCE KATELYN VALLE T 788.30 URINARY INCONTINENCE UNSPECIFIED 02/05/2012 DAVEY STEPHENSON MD 596.8 9 OTHER SPECIFIED DISORDERS OF BLADDER 02/05/2012 DAVEY STEPHENSON MD 625.9 PELVIC PAIN 02/05/2012 DAVEY STEPHENSON MD 788.3 0 URINARY INCONTINENCE UNSPECIFIED 02/05/2012 MARIALUISA DPM, ORLY 596.89 OTHER SPECIFIED DISORDERS OF BLADDER 02/05/2012 MARIALUISA DPM, ORLY 625.9 PELVIC PAIN 02/05/2012 MARIALUISA DPM, ORLY 788.30 URINARY INCONTINENCE UNSPECIFIED 02/05/2012 KARISSA VALLE, NAHOMY S 596.89 OTHER SPECIFIED DISORDERS OF BLADDER 02/05/2012 KARISSA BRIZUELAN, NAHOMY S 625.9 PELVIC PAIN 02/05/2012 KARISSA BRIZUELAN, NAHOMY S 788.30 URINARY INCONTINENCE UNSPECIFIED 02/05/2012 MARIALUISA DPM, ORLY 596.89 OTHER SPECIFIED DISORDERS OF BLADDER 02/05/2012 MARIALUISA DPM, ORLY 625.9 PELVIC PAIN 02/05/2012 MARIALUISA DPM, ORLY 788.30 URINARY INCONTINENCE UNSPECIFIED 02/05/2012 KARISSA FRUIT FARMWORKER, NAHOMY S 596.89 OTHER SPECIFIED DISORDERS OF BLADDER 02/05/2012 KARISSA FRUIT FARMWORKER, NAHOMY S 625.9 PELVIC PAIN 02/05/2012 KARISSA FRUIT FARMWORKER, NAHOMY S 788.30 URINARY INCONTINENCE UNSPECIFIED 02/05/2012 KARISSA FRUIT FARMWORKER, NAHOMY S 596.89 OTHER SPECIFIED DISORDERS OF BLADDER 02/05/2012 NAHOMY HANCOCK APRN S 625.9 PELVIC PAIN 02/05/2012 NAHOMY HANCOCK APRN S 788.30 URINARY INCONTINENCE UNSPECIFIED 02/05/2012 NAHOMY HANCOCK APRN S 596.89 OTHER SPECIFIED DISORDERS OF BLADDER 02/05/2012 NAHOMY HANCOCK APRN S 625.9 PELVIC PAIN 02/05/2012 NAHOMY HANCOCK APRN S 788.30 URINARY INCONTINENCE UNSPECIFIED 02/05/2012 Ot 618.01 CYS TOCELE, MIDLINE 02/05/2012 Ot 618.04 REC TOCELE 02/05/2012 Ot 625.9 FEM GENITAL SYMPTOMS NOS 02/05/2012 Ot 733.90 BON E CARTILAGE DIS NOS 02/07/2012 Ot 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 02/07/2012 Ot 311 DEPRES SIVE [...] 787.9 1 DIARRHEA 02/10/2012 OLEG ISAACS DO 787.91 DIARRHEA 02/10/2012 DAVEY STEPHENSON MD 787.9 1 DIARRHEA 02/10/2012 KATELYN HENRIQUEZ APRN 787.91 DIARRHEA 02/10/2012 EVAN CANO MD 787 .91 DIARRHEA 02/10/2012 NAHOMY HANCOCK APRN 787.91 DIARRHEA 02/10/2012 EVAN CANO MD 787 .91 DIARRHEA 02/10/2012 MARISABEL ANDERSON APRN 787.91 DIARRHEA 02/10/2012 NAHOMY HANCOCK APRN 787.91 DIARRHEA 02/10/2012 KATELYN HENRIQUEZ APRN 787.91 DIARRHEA 02/10/2012 DAVEY STEPHENSON MD 787.9 1 DIARRHEA 02/10/2012 MARIALUISA DPM, ORLY 787.91 DIARRHEA 02/10/2012 KARISSA VALLE, NAHOMY S 787.91 DIARRHEA 02/10/2012 MARIALUISA DPM, ORLY 787.91 DIARRHEA 02/10/2012 LIDA HANCOCK APRNA S 787.91 DIARRHEA 02/10/2012 KARISSA VALLE, NAHOMY S 787.91 DIARRHEA 02/10/2012 KARISSA VALLE, NAHOMY S 787.91 DIARRHEA 02/13/2012 Ot 616.2 COY [...] REPLACEMENT THERAPY (POSTMENOPAUSAL) 02/27/2012 NAHOMY HANCOCK APRN V07.4 HORMONE REPLACEMENT THERAPY (POSTMENOPAUSAL) 02/27/2012 EVAN CANO MD V07 .4 HORMONE REPLACEMENT THERAPY (POSTMENOPAUSAL) 02/27/2012 MONICA FRUIT FARMWORKER, MARISABEL A V0 7.4 HORMONE REPLACEMENT THERAPY (POSTMENOPAUSAL) 02/27/2012 [...] STEPHENSON MD 782.7 SPONTANEOUS ECCHYMOSES 04/11/2012 OLEG ISAASC DO 780.79 fatigue 04/11/2012 OLEG ISAACS DO 782.7 SPONTANEOUS ECCHYMOSES 04/11/2012 DAVEY STEPHENSON MD 780.7 9 FATIGUE 04/11/2012 DAVEY STEPHENSON MD 782.7 SPONTANEOUS ECCHYMOSES 04/11/2012 KATELYN HENRIQUEZ APRN 780.79 FATIGUE 04/11/2012 KATELYN HENRIQUEZ APRN 78 2.7 SPONTANEOUS ECCHYMOSES 04/11/2012 EVAN CANO MD N 780 .79 FATIGUE 04/11/2012 EVAN CANO MD N 782 .7 SPONTANEOUS ECCHYMOSES 04/11/2012 KRISTYN HANCOCK APRNNDA S 780.79 FATIGUE 04/11/2012 KRISTYN HANCOCK APRNNDA S 782.7 SPONTANEOUS ECCHYMOSES 04/11/2012 EVAN CANO MD N 780 .79 FATIGUE 04/11/2012 EVAN CANO MD 782 .7 SPONTANEOUS ECCHYMOSES 04/11/2012 MONICA VALLE MARISABEL A 780.79 FATIGUE 04/11/2012 MONICA VALLE MARISABEL A 78 2.7 SPONTANEOUS ECCHYMOSES 04/11/2012 KRISTYN HANCOCK APRNNDA S 780.79 FATIGUE 04/11/2012 KRISTYN HANCOCK APRNNDA S 782.7 SPONTANEOUS ECCHYMOSES 04/11/2012 KATELYN HENRIQUEZ APRN 780.79 FATIGUE 04/11/2012 KATELYN HENRIQUEZ APRN 78 2.7 SPONTANEOUS ECCHYMOSES 04/11/2012 DAVEY STEPHENSON MD 780.7 9 FATIGUE 04/11/2012 DAVEY STEPHENSON MD 782.7 SPONTANEOUS ECCHYMOSES 04/11/2012 MARIALUISA DPM, OLRY 780.79 FATIGUE 04/11/2012 MARIALUISA DPM, ORLY 782.7 SPONTANEOUS ECCHYMOSES 04/11/2012 KARISSA VALLE NAHOMY S 780.79 FATIGUE 04/11/2012 KARISSA VALLE NAHOMY S 782.7 SPONTANEOUS ECCHYMOSES 04/11/2012 MARIALUISA DPM, ORLY 780.79 FATIGUE 04/11/2012 MARIALUISA DPM, ORLY 782.7 SPONTANEOUS ECCHYMOSES 04/11/2012 KARISSA VALLE NAHOMY S 780.79 FATIGUE 04/11/2012 KARISSA VALLE NAHOMY S 782.7 SPONTANEOUS ECCHYMOSES 04/11/2012 KARISSA TORIKRISTYNNAHOMY S 780.79 FATIGUE 04/11/2012 KARISSA TORI NAHOMY S 782.7 SPONTANEOUS ECCHYMOSES 04/11/2012 KARISSA TORI NAHOMY S 780.79 FATIGUE 04/11/2012 KARISSA BRIZUELANKRISTYNNAHOMY S 782.7 SPONTANEOUS ECCHYMOSES 04/24/2012 268.9 UNSP [...] STEPHENSON MD 780.9 6 GENERALIZED PAIN 04/24/2012 ROEL LOWERY APRN R [...] HENRIQUEZ APRN T 338.29 CHRONIC PAIN 04/24/2012 FLORENCE VALLE KATELYN T 780.96 GENERALIZED PAIN 04/24/2012 EVAN CANO MD N 268 .9 UNSPECIFIED VITAMIN D DEFICIENCY 04/24/2012 EVAN CANO MD N 338 .29 CHRONIC PAIN 04/24/2012 EVAN CANO MD N 780 .96 GENERALIZED PAIN 04/24/2012 LIDA HANCOCK APRNA S 268.9 UNSPECIFIED VITAMIN D DEFICIENCY 04/24/2012 KARISSA VALLE NAHOMY S 338.29 CHRONIC PAIN 04/24/2012 KARISSA VALLE NAHOMY S 780.96 GENERALIZED PAIN 04/24/2012 EVAN CANO MD N 268 .9 UNSPECIFIED VITAMIN D DEFICIENCY 04/24/2012 EVAN CANO MD N 338 .29 CHRONIC PAIN 04/24/2012 EVAN CANO MD N 780 .96 GENERALIZED PAIN 04/24/2012 MONICA VALLE MARISABEL A 26 8.9 UNSPECIFIED VITAMIN D DEFICIENCY 04/24/2012 MONICA VALLE MARISABEL A 338.29 CHRONIC PAIN 04/24/2012 MONICAMILLER VALLE, MARISABEL A 780.96 GENERALIZED PAIN 04/24/2012 LIDA HANCOCK APRNA S 268.9 UNSPECIFIED VITAMIN D DEFICIENCY 04/24/2012 KARISSA VALLE NAHOMY S 338.29 CHRONIC PAIN 04/24/2012 KRISTYN HANCOCK APRNNDA S 780.96 GENERALIZED PAIN 04/24/2012 KATELYN HENRIQUEZ APRN T 26 8.9 UNSPECIFIED VITAMIN D DEFICIENCY 04/24/2012 KATELYN HENRIQUEZ APRN T 338.29 CHRONIC PAIN 04/24/2012 FLORENCE VALLE KATELYN T 780.96 GENERALIZED PAIN 04/24/2012 DAVEY STEPHENSON MD 268.9 UNSPECIFIED VITAMIN D DEFICIENCY 04/24/2012 DAVEY STEPHENSON MD 338.2 9 CHRONIC PAIN 04/24/2012 DAVEY STEPHENSON MD 780.9 6 GENERALIZED PAIN 04/24/2012 MARIALUISA DPM, ORLY 268.9 UNSPECIFIED VITAMIN D DEFICIENCY 04/24/2012 MARIALUISA DPM, ORLY 338.29 CHRONIC PAIN 04/24/2012 MARIALUISA DPM, ORLY 780.96 GENERALIZED PAIN 04/24/2012 KARISSA FRUIT FARMWORKER, NAHOMY S 268.9 UNSPECIFIED VITAMIN D DEFICIENCY 04/24/2012 KARISSA FRUIT FARMWORKER, NAHOMY S 338.29 CHRONIC PAIN 04/24/2012 KARISSA FRUIT FARMWORKER, NAHOMY S 780.96 GENERALIZED PAIN 04/24/2012 MARIALUISA DPM, ORLY 268.9 UNSPECIFIED VITAMIN D DEFICIENCY 04/24/2012 MARIALUISA DPM, ORLY 338.29 CHRONIC PAIN 04/24/2012 MARIALUISA DPM, ORLY 780.96 GENERALIZED PAIN 04/24/2012 KARISSA FRUIT FARMWORKER, NAHOMY S 268.9 UNSPECIFIED VITAMIN D DEFICIENCY 04/24/2012 KARISSA FRUIT FARMWORKER, NAHOMY S 338.29 CHRONIC PAIN 04/24/2012 KARISSA FRUIT FARMWORKER, NAHOMY S 780.96 GENERALIZED PAIN 04/24/2012 KARISSA FRUIT FARMWORKER, NAHOMY S 268.9 UNSPECIFIED VITAMIN D DEFICIENCY 04/24/2012 KARISSA FRUIT FARMWORKER, NAHOMY S 338.29 CHRONIC PAIN 04/24/2012 KARISSA VALLE, NAHOMY S 780.96 GENERALIZED PAIN 04/24/2012 KARISSA FRUIT FARMWORKER, NAHOMY S 268.9 UNSPECIFIED VITAMIN D DEFICIENCY 04/24/2012 KARISSA FRUIT FARMWORKER, NAHOMY S 338.29 CHRONIC PAIN 04/24/2012 KARISSA FRUIT FARMWORKER, NAHOMY S 780.96 GENERALIZED PAIN 05/05/2012 Ot [...] INGROWING NAIL 05/30/2012 FLORENCE VALLE, KATELYN Villarreal 70 3.0 INGROWING NAIL 05/30/2012 JEROME HOLLIDAY, EVAN An 703 .0 INGROWING NAIL 05/30/2012 KARISSA FRUIT FARMWORKER, NAHOMY S 703.0 INGROWING NAIL 05/30/2012 JEROME HOLLIDAY, EVAN N 703 .0 INGROWING NAIL 05/30/2012 MONICA FRUIT FARMWORKER, MARISABEL A 70 3.0 INGROWING NAIL 05/30/2012 KARISSA FRUIT FARMWORKER, NAHOMY S 703.0 INGROWING NAIL 05/30/2012 FLORENCE FRUIT FARMWORKER, KATELYN Villarreal 70 3.0 INGROWING NAIL 05/30/2012 DAVEY STEPHENSON MD 703.0 INGROWING NAIL 05/30/2012 MARIALUISA DPM, ORLY 703.0 INGROWING NAIL 05/30/2012 KARISSA FRUIT FARMWORKER, NAHOMY S 703.0 INGROWING NAIL 05/30/2012 MARIALUISA DPM, ORLY 703.0 INGROWING NAIL 05/30/2012 KARISSA FRUIT FARMWORKER, NAHOMY S 703.0 INGROWING NAIL 05/30/2012 KARISSA FRUIT FARMWORKER, NAHOMY S 703.0 INGROWING NAIL 05/30/2012 KARISSA FRUIT FARMWORKER, NAHOMY S 703.0 INGROWING NAIL 09/12/2012 Ot [...] AND MYOSITIS UNSPECIFIED 04/18/2013 EVAN CANO MD N V03 .82 PPV23 (PNEUMOVAX) DX 04/18/2013 NAHOMY HANCOCK APRN S 729.1 MYALGIA AND MYOSITIS UNSPECIFIED 04/18/2013 NAHOMY HANCOCK APRN S V03.82 PPV23 (PNEUMOVAX) DX 04/18/2013 EVAN CANO MD N 729 .1 MYALGIA AND MYOSITIS UNSPECIFIED 04/18/2013 EVAN CANO MD N V03 .82 PPV23 (PNEUMOVAX) DX 04/18/2013 MARISABEL ANDERSON APRN A 72 9.1 MYALGIA AND MYOSITIS UNSPECIFIED 04/18/2013 MARISABEL ANDERSON [...] DPM, ORLY V03.82 PPV23 (PNEUMOVAX) DX 04/18/2013 LIDA HANCOCK APRNA S 729.1 MYALGIA AND MYOSITIS UNSPECIFIED 04/18/2013 KARISSA FRUIT FARMWORKER, NAHOMY S V03.82 PPV23 (PNEUMOVAX) DX 04/18/2013 MARIALUISA DPM, ORLY 729.1 MYALGIA AND MYOSITIS UNSPECIFIED 04/18/2013 MARIALUISA DPM, ORLY V03.82 PPV23 (PNEUMOVAX) DX 04/18/2013 KARISSA FRUIT FARMWORKER, NAHOMY S 729.1 MYALGIA AND MYOSITIS UNSPECIFIED 04/18/2013 KARISSA FRUIT FARMWORKER, NAHOMY S V03.82 PPV23 (PNEUMOVAX) DX 04/18/2013 KARISSA FRUIT FARMWORKER, NAHOMY S 729.1 MYALGIA AND MYOSITIS UNSPECIFIED 04/18/2013 KARISSA FRUIT FARMWORKER, NAHOMY S V03.82 PPV23 (PNEUMOVAX) DX 04/18/2013 KARISSA FRUIT FARMWORKER, NAHOMY S 729.1 MYALGIA AND MYOSITIS UNSPECIFIED 04/18/2013 KARISSA FRUIT FARMWORKER, NAHOMY S V03.82 PPV23 (PNEUMOVAX) DX 05/16/2013 BEVERLEY VALLE ROEL R 780.4 DIZZINESS AND VERTIGO 05/16/2013 MARIA E LOWERY APRNRICIA R 787.02 NAUSEA ALONE 05/16/2013 DAVEY STEPHENSON MD 780.4 DIZZINESS AND VERTIGO 05/16/2013 DAVEY STEPHENSON MD 787.0 2 NAUSEA ALONE 05/16/2013 DAVEY STEPHENSON MD 780.4 DIZZINESS AND VERTIGO 05/16/2013 DAVEY STEPHENSON MD 787.0 2 NAUSEA ALONE 05/16/2013 KATELYN HENRIQUEZ APRN 78 0.4 DIZZINESS AND VERTIGO 05/16/2013 KATELYN HENRIQUEZ APRN 787.02 NAUSEA ALONE 05/16/2013 EVAN CANO MD 780 .4 DIZZINESS AND VERTIGO 05/16/2013 EVAN CANO MD 787 .02 NAUSEA ALONE 05/16/2013 LIDA HANCOCK APRNA S 780.4 DIZZINESS AND VERTIGO 05/16/2013 KARISSA VALLE NAHOMY S 787.02 NAUSEA ALONE 05/16/2013 EVAN CANO MD 780 .4 DIZZINESS AND VERTIGO 05/16/2013 EVAN CANO MD 787 .02 NAUSEA ALONE 05/16/2013 MONICA FRUIT FARMWORKER, MARISABEL A 78 0.4 DIZZINESS AND VERTIGO 05/16/2013 MONICA APRN, MARISABEL A 787.02 NAUSEA ALONE 05/16/2013 KARISSACHRISTOPHER VALLE, NAHOMY S 780.4 DIZZINESS AND VERTIGO 05/16/2013 KARISSA FRUIT FARMWORKER, NAHOMY S 787.02 NAUSEA ALONE 05/16/2013 KATELYN HENRIQUEZ APRN T 78 0.4 DIZZINESS AND VERTIGO 05/16/2013 KATELYN HENRIQUEZ APRN T 787.02 NAUSEA ALONE 05/16/2013 DAVEY STEPHENSON MD 780.4 DIZZINESS AND VERTIGO 05/16/2013 DAVEY STEPHENSON MD 787.0 2 NAUSEA ALONE 05/16/2013 MARIALUISA DPM, ORLY 780.4 DIZZINESS AND VERTIGO 05/16/2013 MARIALUISA DPM, ORLY 787.02 NAUSEA ALONE 05/16/2013 KARISSACHRISTOPHER BRIZUELAN, NAHOMY S 780.4 DIZZINESS AND VERTIGO 05/16/2013 KARISSA FRUIT FARMWORKER, NAHOMY S 787.02 NAUSEA ALONE 05/16/2013 MARIALUISA DPM, ORLY 780.4 DIZZINESS AND VERTIGO 05/16/2013 MARIALUISA DPM, ORLY 787.02 NAUSEA ALONE 05/16/2013 KARISSA FRUIT FARMWORKER, NAHOMY S 780.4 DIZZINESS AND VERTIGO 05/16/2013 KARISSA FRUIT FARMWORKER, NAHOMY S 787.02 NAUSEA ALONE 05/16/2013 KARISSA FRUIT FARMWORKER, NAHOMY S 780.4 DIZZINESS AND VERTIGO 05/16/2013 KARISSA FRUIT FARMWORKER, NAHOMY S 787.02 NAUSEA ALONE 05/16/2013 KARISSA FRUIT FARMWORKER, NAHOMY S 780.4 DIZZINESS AND VERTIGO 05/16/2013 KARISSA FRUIT FARMWORKER, NAHOMY S 787.02 NAUSEA ALONE 05/20/2013 DAVEY STEPHENSON MD 461.9 ACUTE SINUSITIS UNSPECIFIED 05/20/2013 DAVEY STEPHENSON MD 461.9 ACUTE SINUSITIS UNSPECIFIED 05/20/2013 KATELYN HENRIQUEZ APRN 46 1.9 ACUTE SINUSITIS UNSPECIFIED 05/20/2013 EVAN CANO MD 461 .9 ACUTE SINUSITIS UNSPECIFIED 05/20/2013 KARISSA FRUIT FARMWORKER, NAHOMY S 461.9 ACUTE SINUSITIS UNSPECIFIED 05/20/2013 EVAN CANO MD 461 .9 ACUTE SINUSITIS UNSPECIFIED 05/20/2013 MONICA FRUIT FARMWORKER, MARISABEL A 46 1.9 ACUTE SINUSITIS UNSPECIFIED 05/20/2013 KARISSA FRUIT FARMWORKER, NAHOMY S 461.9 ACUTE SINUSITIS UNSPECIFIED 05/20/2013 KATELYN HENRIQUEZ APRN 46 1.9 ACUTE SINUSITIS UNSPECIFIED 05/20/2013 DAVEY STEPHENSON MD 461.9 ACUTE SINUSITIS UNSPECIFIED 05/20/2013 MARIALUISA DPM, ORLY 461.9 ACUTE SINUSITIS UNSPECIFIED 05/20/2013 KARISSA FRUIT FARMWORKER, NAHOMY S 461.9 ACUTE SINUSITIS UNSPECIFIED 05/20/2013 MARIALUISA DPM, ORLY 461.9 ACUTE SINUSITIS UNSPECIFIED 05/20/2013 KARISSA FRUIT FARMWORKER, NAHOMY S 461.9 ACUTE SINUSITIS UNSPECIFIED 05/20/2013 KARISSA FRUIT FARMWORKER, NAHOMY S 461.9 ACUTE SINUSITIS UNSPECIFIED 05/20/2013 KARISSA FRUIT FARMWORKER, NAHOMY S 461.9 ACUTE SINUSITIS UNSPECIFIED 09/16/2013 DAVEY STEPHENSON MD 477.9 ALLERGIC RHINITIS CAUSE UNSPECIFIED 09/16/2013 KATELYN HENRIQUEZ APRN 47 7.9 ALLERGIC RHINITIS CAUSE UNSPECIFIED 09/16/2013 EVAN CANO MD N 477 .9 ALLERGIC RHINITIS CAUSE UNSPECIFIED 09/16/2013 KARISSA FRUIT FARMWORKER, NAHOMY S 477.9 ALLERGIC RHINITIS CAUSE UNSPECIFIED 09/16/2013 EVAN CANO MD 477 .9 ALLERGIC RHINITIS CAUSE UNSPECIFIED 09/16/2013 MONICA FRUIT FARMWORKER, MARISABEL A 47 7.9 ALLERGIC RHINITIS CAUSE UNSPECIFIED 09/16/2013 KARISSA FRUIT FARMWORKER, NAHOMY S 477.9 ALLERGIC RHINITIS CAUSE UNSPECIFIED 09/16/2013 KATELYN HENRIQUEZ APRN 47 7.9 ALLERGIC RHINITIS CAUSE UNSPECIFIED 09/16/2013 DAVEY STEPHENSON MD 477.9 ALLERGIC RHINITIS CAUSE UNSPECIFIED 09/16/2013 MARIALUISA DPM, ORLY 477.9 ALLERGIC RHINITIS CAUSE UNSPECIFIED 09/16/2013 KARISSA FRUIT FARMWORKER, NAHOMY S 477.9 ALLERGIC RHINITIS CAUSE UNSPECIFIED 09/16/2013 MARIALUISA DPM, ORLY 477.9 ALLERGIC RHINITIS CAUSE UNSPECIFIED 09/16/2013 KARISSA FRUIT FARMWORKER, NAHOMY S 477.9 ALLERGIC RHINITIS CAUSE UNSPECIFIED 09/16/2013 KARISSA FRUIT FARMWORKER, NAHOMY S 477.9 ALLERGIC RHINITIS CAUSE UNSPECIFIED 09/16/2013 KARISSA FRUIT FARMWORKER, NAHOMY S 477.9 ALLERGIC RHINITIS CAUSE UNSPECIFIED 12/16/2013 EVAN CANO MD N 373 .00 BLEPHARITIS UNSPECIFIED 12/16/2013 KARISSA FRUIT FARMWORKER, NAHOMY S 373.00 BLEPHARITIS UNSPECIFIED 12/16/2013 EVAN CANO MD 373 .00 BLEPHARITIS UNSPECIFIED 12/16/2013 MONICA FRUIT FARMWORKER, MARISABEL A 373.00 BLEPHARITIS UNSPECIFIED 12/16/2013 KARISSA FRUIT FARMWORKER, NAHOMY S 373.00 BLEPHARITIS UNSPECIFIED 12/16/2013 FLORENCE FRUIT FARMWORKER, KATELYN Villarreal 373.00 BLEPHARITIS UNSPECIFIED 12/16/2013 SEEMA HOLLIDAY, DAVEY 373.0 0 BLEPHARITIS UNSPECIFIED 12/16/2013 MARIALUISA DPM, ORLY 373.00 BLEPHARITIS UNSPECIFIED 12/16/2013 KARISSA FRUIT FARMWORKER, NAHOMY S 373.00 BLEPHARITIS UNSPECIFIED 12/16/2013 MARIALUISA DPM, ORLY 373.00 BLEPHARITIS UNSPECIFIED 12/16/2013 KARISSA FRUIT FARMWORKER, NAHOMY S 373.00 BLEPHARITIS UNSPECIFIED 12/16/2013 KARISSA FRUIT FARMWORKER, NAHOMY S 373.00 BLEPHARITIS UNSPECIFIED 12/16/2013 KARISSA FRUIT FARMWORKER, NAHOMY S 373.00 BLEPHARITIS UNSPECIFIED 01/29/2014 EVAN CANO MD Ot 300.00 ANXIETY STATE NOS 01/29/2014 EVAN CANO MD Ot 305 .1 TOBACCO USE DISORDER 01/29/2014 EVAN CANO MD Ot 311 DEPRESSIVE DISORDER NEC 01/29/2014 EVAN CANO MD Ot 599 .0 URIN TRACT INFECTION NOS 01/29/2014 EVAN CANO MD Ot 729 .1 MYALGIA AND MYOSITIS NOS 01/29/2014 EVAN CANO MD Ot 965.09 POISONING-OPIATES NEC 01/29/2014 EVAN CANO MD Ot E950.0 SUICIDE-ANALGESICS 02/05/2014 LIDA HANCOCK APRNA S 788.63 URINARY URGENCY 02/05/2014 LIDA HANCOCK APRNA S V70.0 EXAM - ROUTINE H&P 02/05/2014 EVAN CANO MD N 788 .63 URINARY URGENCY 02/05/2014 EVAN CANO MD V70 .0 EXAM - ROUTINE H&P 02/05/2014 MONICA FRUIT FARMWORKER, MARISABEL A 788.63 URINARY URGENCY 02/05/2014 MONICA VALLE MARISABEL A V7 0.0 EXAM - ROUTINE H&P 02/05/2014 LIDA HANCOCK APRNA S 788.63 URINARY URGENCY 02/05/2014 LIDA HANCOCK APRNA S V70.0 EXAM - ROUTINE H&P 02/05/2014 KATELYN HENRIQUEZ APRN 788.63 URINARY URGENCY 02/05/2014 KATELYN HENRIQUEZ APRN V7 0.0 EXAM - ROUTINE H&P 02/05/2014 SEEMA HOLLIDAY, DAEVY 788.6 3 URINARY URGENCY 02/05/2014 DAVEY STEPHENSON MD V70.0 EXAM - ROUTINE H&P 02/05/2014 MARIALUISA DPM, ORLY 788.63 URINARY URGENCY 02/05/2014 MARIALUISA DPM, ORLY V70.0 EXAM - ROUTINE H&P 02/05/2014 KRISTYN HANCOCK APRNNDA S 788.63 URINARY URGENCY 02/05/2014 LIDA HANCOCK APRNA S V70.0 EXAM - ROUTINE H&P 02/05/2014 MARIALUISA DPM, ORLY 788.63 URINARY URGENCY 02/05/2014 MARIALUISA DPM, ORLY V70.0 EXAM - ROUTINE H&P 02/05/2014 KRISTYN HANCOCK APRNNDA S 788.63 URINARY URGENCY 02/05/2014 KRISTYN HANCOCK APRNNDA S V70.0 EXAM - ROUTINE H&P 02/05/2014 KRISTYN HANCOCK APRNNDA S 788.63 URINARY URGENCY 02/05/2014 KARISSA FRUIT FARMWORKER, NAHOMY S V70.0 EXAM - ROUTINE H&P 02/05/2014 KARISSA FRUIT FARMWORKER, NAHOMY S 788.63 URINARY URGENCY 02/05/2014 KARISSA FRUIT FARMWORKER, NAHOMY S V70.0 EXAM - ROUTINE H&P 03/10/2014 JEROME HOLLIDAY, EVAN N 793 .80 UNSPECIFIED (ABNORMAL) MAMMOGRAM 03/10/2014 MONICAMILLER VALLE, MARISABEL [...] S 793.80 UNSPECIFIED (ABNORMAL) MAMMOGRAM 03/10/2014 KARISSA FRUIT FARMWORKER, NAHOMY S 793.80 UNSPECIFIED (ABNORMAL) MAMMOGRAM 03/16/2014 MONICA VALLE, MARISABEL A 788.41 URINARY FREQUENCY 03/16/2014 KARISSA VALLE NAHOMY S 788.41 URINARY FREQUENCY 03/16/2014 KATELYN HENRIQUEZ APRN T 788.41 URINARY FREQUENCY 03/16/2014 DAVEY STEPHENSON MD 788.4 1 URINARY FREQUENCY 03/16/2014 MARIALUISA DPM, ORLY 788.41 URINARY FREQUENCY 03/16/2014 KARISSA VALLE, NAHOMY S 788.41 URINARY FREQUENCY 03/16/2014 MARIALUISA DPM, ORLY 788.41 URINARY FREQUENCY 03/16/2014 KARISSA VALLE NAHOMY S 788.41 URINARY FREQUENCY 03/16/2014 KARISSA VALLE NAHOMY S 788.41 URINARY FREQUENCY 03/16/2014 KARISSA FRUIT FARMWORKER, NAHOMY S 788.41 URINARY FREQUENCY 03/24/2014 KARISSA FRUIT FARMWORKER, NAHOMY S 477.0 ALLERGIC RHINITIS DUE TO POLLEN 03/24/2014 KARISSA FRUIT FARMWORKER, NAHOMY S 626.7 POSTCOITAL BLEEDING 03/24/2014 KATELYN HENRIQUEZ APRN T 47 7.0 ALLERGIC RHINITIS DUE TO POLLEN 03/24/2014 KATELYN HENRIQUEZ APRN T 62 6.7 POSTCOITAL BLEEDING 03/24/2014 DAVEY STEPHENSON MD 477.0 ALLERGIC RHINITIS DUE TO POLLEN 03/24/2014 DAVEY STEPHENSON MD 626.7 POSTCOITAL BLEEDING 03/24/2014 MARIALUISA DPM, ORLY 477.0 ALLERGIC RHINITIS DUE TO POLLEN 03/24/2014 MARIALUISA DPM, ORLY 626.7 POSTCOITAL BLEEDING 03/24/2014 KARISSA FRUIT FARMWORKER, NAHOMY S 477.0 ALLERGIC RHINITIS DUE TO POLLEN 03/24/2014 KARISSA FRUIT FARMWORKER, NAHOMY S 626.7 POSTCOITAL BLEEDING 03/24/2014 MARIALUISA DPM, ORLY 477.0 ALLERGIC RHINITIS DUE TO POLLEN 03/24/2014 MARIALUISA DPM, ORLY 626.7 POSTCOITAL BLEEDING 03/24/2014 KARISSA FRUIT FARMWORKER, NAHOMY S 477.0 ALLERGIC RHINITIS DUE TO POLLEN 03/24/2014 KARISSA FRUIT FARMWORKER, NAHOMY S 626.7 POSTCOITAL BLEEDING 03/24/2014 KARISSA FRUIT FARMWORKER, NAHOMY S 477.0 ALLERGIC RHINITIS DUE TO POLLEN 03/24/2014 KARISSA FRUIT FARMWORKER, NAHOMY S 626.7 POSTCOITAL BLEEDING 03/24/2014 KARISSA FRUIT FARMWORKER, NAHOMY S 477.0 ALLERGIC RHINITIS DUE TO POLLEN 03/24/2014 KARISSA FRUIT FARMWORKER, NAHOMY S 626.7 POSTCOITAL BLEEDING 04/15/2014 KATELYN HENRIQUEZ APRN T 11 0.1 ONYCHOMYCOSIS 04/15/2014 DAVEY STEPHENSON MD 110.1 ONYCHOMYCOSIS 04/15/2014 MARIALUISA DPM, ORLY 110.1 ONYCHOMYCOSIS 04/15/2014 KARISSA FRUIT FARMWORKER, NAHOMY S 110.1 ONYCHOMYCOSIS 04/15/2014 MARIALUISA DPM, ORLY 110.1 ONYCHOMYCOSIS 04/15/2014 KARISSA FRUIT FARMWORKER, NAHMOY S 110.1 ONYCHOMYCOSIS 04/15/2014 KARISSA FRUIT FARMWORKER, NAHOMY S 110.1 ONYCHOMYCOSIS 04/15/2014 KARISSA FRUIT FARMWORKER, NAHOMY S 110.1 ONYCHOMYCOSIS 05/08/2014 SEEMA HOLLIDAY, DAVEY 465.9 ACUTE UPPER RESPIRATORY INFECTIONS OF UNSPECIFIED SITE 05/08/2014 MARIALUISA DPM, ORLY 465.9 ACUTE UPPER RESPIRATORY INFECTIONS OF UNSPECIFIED SITE 05/08/2014 KARISAS FRUIT FARMWORKER, NAHOMY S 465.9 ACUTE UPPER RESPIRATORY INFECTIONS OF UNSPECIFIED SITE 05/08/2014 MARIALUISA DPM, ORLY 465.9 ACUTE UPPER RESPIRATORY INFECTIONS OF UNSPECIFIED SITE 05/08/2014 KARISSA FRUIT FARMWORKER, NAHOMY S 465.9 ACUTE UPPER RESPIRATORY INFECTIONS OF UNSPECIFIED SITE 05/08/2014 KARISSA FRUIT FARMWORKER, NAHOMY S 465.9 ACUTE UPPER RESPIRATORY INFECTIONS OF UNSPECIFIED SITE 05/08/2014 KARISSA FRUIT FARMWORKER, NAHOMY S 465.9 ACUTE UPPER RESPIRATORY INFECTIONS OF UNSPECIFIED SITE 06/05/2014 MARIALUISA DPM, ORLY 703.8 ONYCHOCRYPTOSIS 06/05/2014 KARISSA FRUIT FARMWORKER, NAHOMY S 703.8 ONYCHOCRYPTOSIS 06/05/2014 MARIALUISA DPM, ORLY 703.8 ONYCHOCRYPTOSIS 06/05/2014 KARISSA FRUIT FARMWORKER, NAHOMY S 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.8 ONYCHOCRYPTOSIS 06/05/2014 KARISSA FRUIT FARMWORKER, NAHOMY S 703.8 ONYCHOCRYPTOSIS 06/05/2014 KARISSA FRUIT FARMWORKER, NAHOMY S 703.8 ONYCHOCRYPTOSIS 07/24/2014 KARISSA FRUIT FARMWORKER, NAHOMY S 734 FLAT FOOT 07/24/2014 KARISSA FRUIT FARMWORKER, NAHOMY S 734 FLAT FOOT 07/24/2014 KARISSA FRUIT FARMWORKER, NAHOMY S 734 FLAT FOOT 08/05/2014 KARISSA FRUIT FARMWORKER, NAHOMY S 461.9 SINUSITIS ACUTE 08/05/2014 KARISSA FRUIT FARMWORKER, NAHOMY S 784.0 HEADACHE 08/05/2014 KARISSA FRUIT FARMWORKER, NAHOMY S 461.9 SINUSITIS ACUTE 08/05/2014 RKISTYN HANCOCK APRNNDA S 784.0 HEADACHE 08/05/2014 KARISSA VALLE, NAHOMY S 461.9 SINUSITIS ACUTE 08/05/2014 KRISTYN HANCOCK APRNNDA S 784.0 HEADACHE 08/10/2014 Ot 793.81 08/10/2014 [...] V72.84 08/10/2014 Ot 733.90 08/10/2014 JOSIAS GUERRERO SAFETY SECURITY OFFICER Ot 793.80 08/10/2014 JOSIAS GUERREROP Ot V76.12 08/10/2014 JOSIAS GUERREROP Ot 793.80 08/10/2014 JOSIAS GUERRERO SAFETY SECURITY OFFICER Ot 793.80 08/10/2014 JOSIAS GUERREROP Ot V67.9 08/11/2014 LIDA HANCOCK APRNA S 386.10 VERTIGO, PERIPHERAL UNSPECIFIED 08/11/2014 KARISSA FRUIT FARMWORKER, NAHOMY S 386.10 VERTIGO, PERIPHERAL UNSPECIFIED 08/11/2014 NAHOMY [...] IETY STATE NOS 08/17/2014 Ot 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 08/17/2014 Ot 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 08/17/2014 Ot 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 08/17/2014 Ot 729.1 MYAL JESSICA AND MYOSITIS NOS 08/17/2014 Ot 781.3 LACK OF COORDINATION 08/17/2014 Ot 787.01 SHEFALI SEA WITH VOMITING 08/18/2014 NAHOMY HANCOCK APRN S 203.00 MULTIPLE MYELOMA WITHOUT MENTION OF HAVING ACHIEVED RE MISSION 08/18/2014 NAHOMY HANCOCK APRN S 203.00 MULTIPLE MYELOMA WITHOUT MENTION OF HAVING ACHIEVED RE MISSION 08/18/2014 NAHOMY HANCOCK APRN S 203.00 MULTIPLE [...] 08/25/2014 Ot V58.69 OTH MED,LT,CURRENT USE 09/02/2014 NAHOMY HANCOCK APRN S 723.0 SPINAL STENOSIS IN CERVICAL REGION 09/02/2014 KARISSA FRUIT FARMWORKER, NAHOMY S 729.2 NEURALGIA NEURITIS AND RADICULITIS UNSPECIFIED 09/02/2014 KARISSA FRUIT FARMWORKER, NAHOMY S 723.0 SPINAL STENOSIS IN CERVICAL REGION 09/02/2014 KARISSA FRUIT FARMWORKER, NAHOMY S 729.2 NEURALGIA NEURITIS AND RADICULITIS UNSPECIFIED 09/02/2014 KARISSA FRUIT FARMWORKER, NAHOMY S 723.0 SPINAL STENOSIS IN CERVICAL REGION 09/02/2014 KARISSA FRUIT FARMWORKER, NAHOMY S 729.2 NEURALGIA NEURITIS AND RADICULITIS UNSPECIFIED 09/07/2014 SUE GARCIA Nataliya Ot 203.00 10/12/2014 KARISSA FRUIT FARMWORKER, NAHOMY S 724.09 SPINAL STENOSIS OF OTHER REGION 10/16/2014 Ot 793.81 10/16/2014 Ot V76.12 10/16/2014 Ot 793.81 10/16/2014 Ot 793.80 10/16/2014 Ot 616.2 10/16/2014 Ot V72.84 10/16/2014 Ot 733.90 10/16/2014 JOSIAS GUERRERO SAFETY SECURITY OFFICER Ot 793.80 10/16/2014 JOSIAS GUERRERO SAFETY SECURITY OFFICER Ot V76.12 10/16/2014 JOSIAS GUERREROP Ot 793.80 10/16/2014 JOSIAS GUERREROP Ot 793.80 10/16/2014 JOSIAS GUERREROP Ot V67.9 10/16/2014 JOSE SUE An Ot 203.00 10/16/2014 Ot 793.81 10/16/2014 Ot V76.12 10/16/2014 Ot 793.81 10/16/2014 Ot 793.80 10/16/2014 Ot 616.2 10/16/2014 Ot V72.84 10/16/2014 Ot 733.90 10/16/2014 JOSIAS GUERREROP Ot 793.80 10/16/2014 JOSIAS GUERREROP Ot V76.12 10/16/2014 JOSIAS GUERREROP Ot 793.80 10/16/2014 JOSIAS GUERREROP Ot 793.80 10/16/2014 JOSIAS GUERRERO SAFETY SECURITY OFFICER Ot V67.9 10/16/2014 JOSE ELIAS GARCIASUSANNAH An Ot 203.00 10/16/2014 Ot 793.81 10/16/2014 Ot V76.12 10/16/2014 Ot 793.81 10/16/2014 Ot 793.80 10/16/2014 Ot 616.2 10/16/2014 Ot V72.84 10/16/2014 Ot 733.90 10/16/2014 JOSIAS GUERRERO SAFETY SECURITY OFFICER Ot 793.80 10/16/2014 JOSIAS GUERRERO SAFETY SECURITY OFFICER Ot V76.12 10/16/2014 JOSIAS GUERRERO SAFETY SECURITY OFFICER Ot 793.80 10/16/2014 JOSIAS GUERRERO SAFETY SECURITY OFFICER Ot 793.80 10/16/2014 JOSIAS GUERREROP Ot V67.9 10/16/2014 SUE GARCIA Ot 203.00 10/17/2014 Ot 793.81 10/17/2014 Ot V76.12 10/17/2014 Ot 793.81 10/17/2014 Ot 793.80 10/17/2014 Ot 616.2 10/17/2014 Ot V72.84 10/17/2014 Ot 733.90 10/17/2014 JOSIAS GUERRERO SAFETY SECURITY OFFICER Ot 793.80 10/17/2014 JOSIAS GUERREROP Ot V76.12 10/17/2014 JOSIAS GUERREROP Ot 793.80 10/17/2014 JOSIAS GUERREROP Ot 793.80 10/17/2014 JOSIAS GUERREROP Ot V67.9 10/17/2014 SUE GARCIA Ot 203.00 10/17/2014 BENITO KLEIN MD Ot 784. 0 HEADACHE 10/17/2014 BENITO KLEIN MD Ot V58. 65 LONG-TERM(CURRENT)USE OF STEROIDS 10/17/2014 BENITO KLEIN MD Ot V58. 69 OT MED,LT,CURRENT USE 10/17/2014 Ot 793.81 10/17/2014 [...] JOSIAS GUERREROP Ot V76.12 10/19/2014 JOSIAS GUERRERO SAFETY SECURITY OFFICER Ot 793.80 10/19/2014 JOSIAS GUERRERO SAFETY SECURITY OFFICER Ot 793.80 10/19/2014 JOSIAS GUERREROP Ot V67.9 10/19/2014 SUE GARCIA N Ot 203.00 10/19/2014 SUE GARCIA Ot 203.00 10/20/2014 Ot 793.81 10/20/2014 Ot V76.12 10/20/2014 Ot 793.81 10/20/2014 Ot 793.80 10/20/2014 Ot 616.2 10/20/2014 Ot V72.84 10/20/2014 Ot 733.90 10/20/2014 JOSIAS GUERREROP Ot 793.80 10/20/2014 JOSIAS GUERREROP Ot V76.12 10/20/2014 JOSIAS GUERREROP Ot 793.80 10/20/2014 JOSIAS GUERRERO SAFETY SECURITY OFFICER Ot 793.80 10/20/2014 JOSIAS GUERREROP Ot V67.9 [...] V72.84 12/31/2014 Ot 733.90 12/31/2014 JOSIAS GUERRERO SAFETY SECURITY OFFICER Ot 793.80 12/31/2014 JOSIAS GUERRERO SAFETY SECURITY OFFICER Ot V76.12 12/31/2014 JOSIAS GUERRERO SAFETY SECURITY OFFICER Ot 793.80 12/31/2014 JOSIAS GUERRERO SAFETY SECURITY OFFICER Ot 793.80 12/31/2014 JOSIAS GUERRERO SAFETY SECURITY OFFICER Ot V67.9 12/31/2014 SHAHID HOLLIDAY, [employer] [facility] Ot 203. 00 01/13/2015 CHAVEZ DOKYLE Ot V76.1 2 01/22/2015 TEE KHANNA DO Ot 305.1 TOBACCO USE DISORDER 01/22/2015 TEE KHANNA DO Ot 308.1 STRESS REACTION, FUGUE 01/22/2015 TEE KHANNA DO Ot 401.9 HYPERTENSION NOS 01/22/2015 TEE KHANNA DO Ot 729.1 MYALGIA AND MYOSITIS NOS 01/22/2015 TEE KHANNA DO Ot 799.3 DEBILITY NOS 01/22/2015 TEE KHANNA DO Ot V58.78 AFTERCARE POST SURGERY MUSCULOSKELETAL S 01/22/2015 TEE KHANNA DO Ot 305.1 01/22/2015 TEE KHANNA DO Ot 308.1 01/22/2015 GELLENDER DO, TEE Gilbert Ot 401.9 01/22/2015 GELLENDER DO, TEE Gilbert Ot 729.1 01/22/2015 GELLENDER DO, TEE Gilbert Ot 799.3 01/22/2015 GELLENDER DO, TEE Gilbert Ot V58.78 03/02/2015 MORRO HOLLIDAY, ANDREY Oconnor Ot 723.1 03/02/2015 MORRO HOLLIDAY, ANDREY Oconnor Ot V57.1 03/17/2015 MORRO HOLLIDAY, ANDREY Oconnor Ot 723.1 CERVICALGIA 03/17/2015 MORRO HOLLIDAY, ANDREY Oconnor Ot V57.1 PHYSICAL THERAPY NEC 03/29/2015 MORRO HOLLIDAY, ANDREY Oconnor Ot 723.1 03/29/2015 MORRO HOLLIDAY, ANDREY Oconnor Ot V57.1 04/08/2015 MORRO HOLILDAY, ANDREY Oconnor Ot M54.2 04/15/2015 MORRO HOLLIDAY, ANDREY Oconnor Ot M54.2 04/28/2015 MORRO HOLLIDAY, ANDREY Oconnor Ot M54.2 04/29/2015 MORRO HOLLIDAY, ANDREY Oconnor Ot M54.2 CERVICALGIA 05/18/2015 KYLE CHAVEZ DO Ot N81.8 9 05/18/2015 KYLE CHAVEZ DO Ot Z01.8 12 05/18/2015 KYLE CHAVEZ DO C Ot Z11.2 05/20/2015 KYLE CHAVEZ DO C Ot D62 ACUTE POSTHEMORRHAGIC ANEMIA 05/20/2015 KYLE CHAVEZ DO Ot N39.3 STRESS INCONTINENCE (FEMALE) (MALE) 05/20/2015 KYLE CHAVEZ DO Ot N81.1 1 CYSTOCELE, MIDLINE 05/20/2015 KYLE CHAVEZ DO Ot N81.6 RECTOCELE 05/20/2015 KYLE CHAVEZ DO Ot N81.8 9 OTHER FEMALE GENITAL PROLAPSE 05/20/2015 KYLE CHAVEZ DO Ot N99.8 20 POSTPROC HEMOR/HEMTOM OF A [...] SHAHID HOLLIDAY, YULIANA Ot 203. 00 08/27/2015 YULIANA KEY MD Ot D47. 2 08/27/2015 YULIANA KEY MD Ot F17.210 08/27/2015 YULIANA KEY MD Ot F32. 9 08/27/2015 YULIANA KEY MD Ot F41. 9 08/27/2015 YULIANA KEY MD Ot M79. 7 08/27/2015 YULIANA KEY MD Ot Z79.899 11/04/2015 YULIANA KEY MD Ot D47. 2 MONOCLONAL GAMMOPATHY 11/04/2015 YULIANA KEY MD Ot F17.210 NICOTINE DEPENDENCE, CIGARETTES, UNCOMPL 11/04/2015 YULIANA KEY MD Ot F32. 9 MAJOR DEPRESSIVE DISORDER, SINGLE EPISOD 11/04/2015 SHAHID HOLLIDAY, YULIANA Ot F41. 9 ANXIETY DISORDER, UNSPECIFIED 11/04/2015 YULIANA KEY MD Ot M79. 7 FIBROMYALGIA 11/04/2015 YULIANA KEY MD Ot Z79.899 OTHER MOTOR POOL CLERK (CURRENT) DRUG THERAPY 11/10/2015 YULIANA KEY MD Ot D47. 2 MONOCLONAL GAMMOPATHY 11/10/2015 YULIANA KEY MD Ot F17.210 NICOTINE DEPENDENCE, CIGARETTES, UNCOMPL 11/10/2015 YULIANA KEY MD Ot F32. 9 MAJOR DEPRESSIVE DISORDER, SINGLE EPISOD 11/10/2015 YULIANA KEY MD Ot F41. 9 ANXIETY DISORDER, UNSPECIFIED 11/10/2015 YULIANA KEY MD Ot M79. 7 FIBROMYALGIA 11/10/2015 YULIANA KEY MD Ot Z79.899 OTHER MOTOR POOL CLERK (CURRENT) DRUG THERAPY 01/20/2016 Ot 793.81 MATEO MOGRAPHIC MICROCLACIFICATION 01/20/2016 Ot V76.12 OTH SCREEN MAMMO- MALIGN NEOPLASM OF JOHN 01/20/2016 Ot 793.81 MATEO MOGRAPHIC MICROCLACIFICATION 01/20/2016 Ot 793.80 UNS PEC ABNORMAL MAMMOGRAM 01/20/2016 Ot 616.2 COY [place] CYST 01/20/2016 Ot V72.84 EXA M PRE- OPERATIVE NOS 01/20/2016 Ot 733.90 BON E CARTILAGE DIS NOS 01/20/2016 JOSIAS GUERRERO SAFETY SECURITY OFFICER Ot 793.80 UNSPEC ABNORMAL MAMMOGRAM 01/20/2016 JOSIAS GUERRERO SAFETY SECURITY OFFICER Ot V76.12 OTH SCREEN MAMMO-MALIGN NEOPLASM OF JOHN 01/20/2016 JOSIAS GUERRERO SAFETY SECURITY OFFICER Ot 793.80 UNSPEC ABNORMAL MAMMOGRAM 01/20/2016 JOSIAS GUERRERO SAFETY SECURITY OFFICER Ot 793.80 UNSPEC ABNORMAL MAMMOGRAM 01/20/2016 JOSIAS GUERRERO SAFETY SECURITY OFFICER Ot V67.9 FOLLOW-UP EXAM NOS 01/20/2016 KYLE [...] Ot F41. 9 ANXIETY DISORDER, UNSPECIFIED 01/20/2016 SHAHID HOLLIDAY, YULIANA Ot M79. 7 FIBROMYALGIA 01/20/2016 SHAHID HOLLIDAY, YULIANA Ot Z79.899 OTHER MOTOR POOL CLERK (CURRENT) DRUG THERAPY 01/21/2016 KYLE CHAVEZ DO [...] E CARTILAGE DIS NOS 02/07/2016 JOSIAS GUERRERO SAFETY SECURITY OFFICER Ot 793.80 UNSPEC ABNORMAL MAMMOGRAM 02/07/2016 JOSIAS GUERRERO SAFETY SECURITY OFFICER Ot V76.12 OTH SCREEN MAMMO-MALIGN NEOPLASM OF JOHN 02/07/2016 JOSIAS GUERRERO SAFETY SECURITY OFFICER Ot 793.80 UNSPEC ABNORMAL MAMMOGRAM 02/07/2016 JOSIAS GUERRERO SAFETY SECURITY OFFICER Ot 793.80 UNSPEC ABNORMAL MAMMOGRAM 02/07/2016 JOSIAS GUERRERO SAFETY SECURITY OFFICER Ot V67.9 FOLLOW-UP EXAM NOS 02/07/2016 KYLE CHAVEZ DO Ot V76.1 2 OTH SCREEN MAMMO-MALIGN NEOPLASM OF JOHN 02/07/2016 KYLE CHAVEZ DO Ot N81.8 9 OTHER FEMALE GENITAL PROLAPSE 02/07/2016 KYLE CHAVEZ DO Ot Z01.8 12 ENCOUNTER FOR PREPROCEDURAL LABORATORY E 02/07/2016 KYLE CHAVEZ DO Ot Z11.2 ENCOUNTER FOR SCREENING FOR OTHER BACTER 02/07/2016 SHAHID HOLLIDAY, YULIANA Ot D47. 2 MONOCLONAL GAMMOPATHY 02/07/2016 SHAHID HOLLIDAY, YULIANA Ot F17.210 NICOTINE DEPENDENCE, CIGARETTES, UNCOMPL 02/07/2016 SHAHID HOLLIDAY, YULIANA Ot F32. 9 MAJOR DEPRESSIVE DISORDER, SINGLE EPISOD 02/07/2016 YULIANA KEY MD Ot F41. 9 ANXIETY DISORDER, UNSPECIFIED 02/07/2016 SHAHID HOLLIDAY, YULIANA Ot M79. 7 FIBROMYALGIA 02/07/2016 YULIANA KEY MD Ot Z79.899 OTHER MOTOR POOL CLERK (CURRENT) DRUG THERAPY 02/07/2016 CHAVEZ DO KYLE C Ot Z12.3 1 ENCNTR SCREEN MAMMOGRAM FOR MALIGNANT NE 02/29/2016 CHAVEZ DO, KYLE C Ot Z12.3 1 ENCNTR SCREEN MAMMOGRAM FOR MALIGNANT NE 04/24/2016 DEMETRIUS RUBIO APRN Ot I10 ESSENTIAL (PRIMARY) HYPERTENSION 04/24/2016 DEMETRIUS RUBIO APRN Ot N12 TUBULO-INTERSTITIAL NEPHRITIS, NOT SPCF 04/24/2016 DEMETRIUS RUBIO APRN Ot R31 .9 HEMATURIA, UNSPECIFIED 04/24/2016 DEMETRIUS RUBIO APRN Ot Z79.899 OTHER MOTOR POOL CLERK (CURRENT) DRUG THERAPY 04/25/2016 THO MORALES MD T Ot F17.210 NICOTINE DEPENDENCE, CIGARETTES, UNCOMPL 04/25/2016 THO MORALES MD T Ot N39.0 URINARY TRACT INFECTION, SITE NOT SPECIF 04/25/2016 THO MORALES MD T Ot Z79.899 OTHER MOTOR POOL CLERK (CURRENT) DRUG THERAPY 04/25/2016 DEMETRIUS RUBIO APRN Ot I10 ESSENTIAL (PRIMARY) HYPERTENSION 04/25/2016 DEMETRIUS RUBIO APRN Ot N12 TUBULO-INTERSTITIAL NEPHRITIS, NOT SPCF 04/25/2016 DEMETRIUS RUBIO APRN Ot R31 .9 HEMATURIA, UNSPECIFIED 04/25/2016 DEMETRIUS RUBIO APRN Ot Z79.899 OTHER MOTOR POOL CLERK (CURRENT) DRUG THERAPY 04/26/2016 THO MORALES MD T Ot F17.210 NICOTINE DEPENDENCE, CIGARETTES, UNCOMPL 04/26/2016 THO MORALES MD T Ot N39.0 URINARY TRACT INFECTION, SITE NOT SPECIF 04/26/2016 THO MORALES MD T Ot Z79.899 OTHER ASSISTED (CURRENT) DRUG THERAPY 04/27/2016 RUBIO, PETER J FRUIT FARMWORKER Ot I10 ESSENTIAL (PRIMARY) HYPERTENSION 04/27/2016 DEMETRIUS RUBIO FRUIT FARMWORKER Ot N12 TUBULO-INTERSTITIAL NEPHRITIS, NOT SPCF 04/27/2016 DEMETRIUS RUBIO FRUIT FARMWORKER Ot R31 .9 HEMATURIA, UNSPECIFIED 04/27/2016 DEMETRIUS RUBIO FRUIT FARMWORKER Ot Z79.899 OTHER MOTOR POOL CLERK (CURRENT) DRUG THERAPY 04/27/2016 ANDREW HOLLIDAY, THO T Ot F17.210 NICOTINE DEPENDENCE, CIGARETTES, UNCOMPL 04/27/2016 ANDREW HOLLIDAY, THO T Ot N39.0 URINARY TRACT INFECTION, SITE NOT SPECIF 04/27/2016 ANDREW HOLLIDAY, THO T Ot Z79.899 OTHER MOTOR POOL CLERK (CURRENT) DRUG THERAPY 05/03/2016 ANDREW HOLLIDAY, THO T Ot F17.210 NICOTINE DEPENDENCE, CIGARETTES, UNCOMPL 05/03/2016 ANDREW HOLLIDAY, THO T Ot N39.0 URINARY TRACT INFECTION, SITE NOT SPECIF 05/03/2016 ANDREW HOLLIDAY, THO T Ot Z79.899 OTHER MOTOR POOL CLERK (CURRENT) DRUG THERAPY 05/04/2016 DEMETRIUS RUBIO FRUIT FARMWORKER Ot I10 ESSENTIAL (PRIMARY) HYPERTENSION 05/04/2016 DEMETRIUS RUBIO FRUIT FARMWORKER Ot N12 TUBULO-INTERSTITIAL NEPHRITIS, NOT SPCF 05/04/2016 DEMETRIUS RUBIO FRUIT FARMWORKER Ot R31 .9 HEMATURIA, UNSPECIFIED 05/04/2016 DEMETRIUS RUBIO FRUIT FARMWORKER Ot Z79.899 OTHER MOTOR POOL CLERK (CURRENT) DRUG THERAPY 05/19/2016 NAHOMY HANCOCK SAFETY SECURITY OFFICER Ot R10.11 RIGHT UPPER QUADRANT PAIN 05/19/2016 NAHOMY HANCOCK SAFETY SECURITY OFFICER Ot R10.11 RIGHT UPPER QUADRANT PAIN 05/23/2016 NAHOMY HANCOCK SAFETY SECURITY OFFICER Ot R10.11 RIGHT UPPER QUADRANT PAIN 05/24/2016 NAHOMY HANCOCK SAFETY SECURITY OFFICER Ot R10.11 RIGHT UPPER QUADRANT PAIN 05/30/2016 NAHOMY HANCOCK SAFETY SECURITY OFFICER Ot R10.11 RIGHT UPPER QUADRANT PAIN 08/08/2016 BERENICE HOLLIDAY, SARAH Masterson Ot M48.02 SPINAL STENOSIS, CERVICAL REGION 08/08/2016 BERENICE HOLLIDAY, SARAH Masterson Ot M79 .1 MYALGIA 08/08/2016 BERENICE HOLLIDAY MCCASEY R Ot Z98 .1 ARTHRODESIS STATUS 08/08/2016 BERENICE HOLLIDAY, MCCASEY R Ot M48.02 SPINAL STENOSIS, CERVICAL REGION 08/08/2016 BERENICE HOLLIDAY, MCCASEY R Ot M79 .1 MYALGIA 08/08/2016 BERENICE HOLLIDAY MCCASEY R Ot Z98 .1 ARTHRODESIS STATUS 09/05/2016 BERENICE HOLLIDAY MCCASEY R Ot M48.02 SPINAL STENOSIS, CERVICAL REGION 09/05/2016 BERENICE HOLLIDAY MCCASEY R Ot M79 .1 MYALGIA 09/05/2016 BERENICE HOLLIDAY MCCASEY R Ot Z98 .1 ARTHRODESIS STATUS 09/07/2016 BERENICE HOLLIDAY MCCASEY R Ot M48.02 SPINAL STENOSIS, CERVICAL REGION 09/07/2016 BERENICE HOLLIDAY MCCASEY R Ot M79 .1 MYALGIA 09/07/2016 BERENICE HOLLIDAY MCCASEY R Ot Z98 .1 ARTHRODESIS STATUS 09/11/2016 BERENICE HOLLIDAY MCCASEY R Ot M48.02 SPINAL STENOSIS, CERVICAL REGION 09/11/2016 BERENICE HOLLIDAY MCCASEY R Ot M79 .1 MYALGIA 09/11/2016 BERENICE HOLLIDAY MCCASEY R Ot Z98 .1 ARTHRODESIS STATUS 09/20/2016 BERENICE HOLLIDAY MCCASEKarla R Ot M48.02 SPINAL STENOSIS, CERVICAL REGION 09/20/2016 BERENICE HOLLIDAY MCCASEY R Ot M79 .1 MYALGIA 09/20/2016 BERENICE HOLLIDAY MCCASEY R Ot Z98 .1 ARTHRODESIS STATUS 09/21/2016 JONH HOLLIDAY MIGUEL K Ot M47.12 OTHER SPONDYLOSIS WITH MYELOPATHY, CERVI 09/21/2016 JONH HOLLIDAY, MIGUEL K Ot R27 .0 ATAXIA, UNSPECIFIED 09/21/2016 JONH HOLLIDAY MIGUEL K Ot M47.12 OTHER SPONDYLOSIS WITH MYELOPATHY, CERVI 09/21/2016 JONH HOLLIDAY MIGUEL K Ot R27 .0 ATAXIA, UNSPECIFIED 09/21/2016 JONH HOLLIDAY MIGUEL K Ot M47.12 OTHER SPONDYLOSIS WITH MYELOPATHY, CERVI 09/21/2016 JONH HOLLIDAY MIGUEL K Ot R27 .0 ATAXIA, UNSPECIFIED 09/29/2016 JONH HOLLIDAY MIGUEL K Ot M47.12 OTHER SPONDYLOSIS WITH MYELOPATHY, CERVI 09/29/2016 JONH MD, MIGUEL K Ot R27 .0 ATAXIA, UNSPECIFIED 09/29/2016 BERENICE HOLLIDAY, SARAH R Ot M48.02 SPINAL STENOSIS, CERVICAL REGION 09/29/2016 SARAH NG MD R Ot M79 .1 MYALGIA 09/29/2016 SARAH NG MD R Ot Z98 .1 ARTHRODESIS STATUS 10/06/2016 SARAH NG MD R Ot M48.02 SPINAL STENOSIS, CERVICAL REGION 10/06/2016 SARAH NG MD R Ot M79 .1 MYALGIA 10/06/2016 SARAH NG MD R Ot Z98 .1 ARTHRODESIS STATUS 10/06/2016 JONH HOLLIDAY MIGUEL K Ot M47.12 OTHER SPONDYLOSIS WITH MYELOPATHY, CERVI 10/06/2016 JONH HOLLIDAY MIGUEL K Ot R27 .0 ATAXIA, UNSPECIFIED 10/09/2016 SARAH NG MD R Ot M48.02 SPINAL STENOSIS, CERVICAL REGION 10/09/2016 SARAH NG MD R Ot M79 .1 MYALGIA 10/09/2016 SARAH NG MD R Ot Z98 .1 ARTHRODESIS STATUS 10/13/2016 JONH HOLLIDAY MIGUEL K Ot M47.12 OTHER SPONDYLOSIS WITH MYELOPATHY, CERVI 10/13/2016 MIGUEL BORJA MD Ot R27 .0 ATAXIA, UNSPECIFIED 10/23/2016 KATELYN SHIRLEY DO Ot F17.210 NICOTINE DEPENDENCE, CIGARETTES, UNCOMPL 10/23/2016 KATELYN SHIRLEY DO Ot I1 0 ESSENTIAL (PRIMARY) HYPERTENSION 10/23/2016 KATELYN SHIRLEY DO, Ot M48.02 SPINAL STENOSIS, CERVICAL REGION 10/23/2016 KATELYN SHIRLEY DO, Ot M54.12 RADICULOPATHY, CERVICAL REGION 10/23/2016 KATELYN SHIRLEY DO Ot M79.602 PAIN IN LEFT ARM 10/23/2016 KATELYN SHIRLEY DO, Ot Z79.899 OTHER MOTOR POOL CLERK (CURRENT) DRUG THERAPY 10/24/2016 SARAH NG MD Ot M48.02 SPINAL STENOSIS, CERVICAL REGION 10/24/2016 SARAH NG MD R Ot M79 .1 MYALGIA 10/24/2016 SARAH NG MD R Ot Z98 .1 [...] 10/25/2016 KATELYN SHIRLEY DO, Ot Z79.899 OTHER ASSISTED (CURRENT) DRUG THERAPY 10/25/2016 SARAH NG MD R Ot M48.02 SPINAL STENOSIS, CERVICAL REGION 10/25/2016 SARAH NG MD R Ot M79 .1 MYALGIA 10/25/2016 SARAH NG MD R Ot Z98 .1 ARTHRODESIS STATUS 10/26/2016 SARAH NG MD Ot M48.02 SPINAL STENOSIS, CERVICAL REGION 10/26/2016 SARAH NG MD Ot M79 .1 MYALGIA 10/26/2016 SARAH NG MD R Ot Z98 .1 ARTHRODESIS STATUS 10/27/2016 SARAH NG MD Ot M48.02 SPINAL STENOSIS, CERVICAL REGION 10/27/2016 SARAH NG MD Ot M79 .1 MYALGIA 10/27/2016 SARAH NG MD Ot Z98 .1 ARTHRODESIS STATUS 11/03/2016 YULIANA KEY MD Ot D47. 2 MONOCLONAL GAMMOPATHY 11/03/2016 YULIANA KEY MD Ot F17.210 NICOTINE DEPENDENCE, CIGARETTES, UNCOMPL 11/03/2016 YULIANA KEY MD Ot F32. 9 MAJOR DEPRESSIVE DISORDER, SINGLE EPISOD 11/03/2016 YULIANA KEY MD Ot F41. 9 ANXIETY DISORDER, UNSPECIFIED 11/03/2016 YULIANA KEY MD Ot M79. 7 FIBROMYALGIA 11/03/2016 YULIANA KEY MD Ot Z79.899 OTHER MOTOR POOL CLERK (CURRENT) DRUG THERAPY 11/20/2016 RAEANN THOMAS Ot N30.01 ACUTE CYSTITIS WITH HEMATURIA 11/20/2016 RAEANN THOMAS Ot N30.01 ACUTE CYSTITIS WITH HEMATURIA 11/21/2016 KATELYN SHIRLEY DO Ot F17.210 NICOTINE DEPENDENCE, CIGARETTES, UNCOMPL 11/21/2016 KATELYN SHIRLEY DO Ot I1 0 ESSENTIAL (PRIMARY) HYPERTENSION 11/21/2016 KATELYN SHIRLEY DO Ot M48.02 SPINAL STENOSIS, CERVICAL REGION 11/21/2016 KATELYN SHIRLEY DO Ot M54.12 RADICULOPATHY, CERVICAL REGION 11/21/2016 KATELYN SHIRLEY DO Ot M79.602 PAIN IN LEFT ARM 11/21/2016 KATELYN SHIRLEY DO Ot Z79.899 OTHER ASSISTED (CURRENT) DRUG THERAPY 11/25/2016 EDY, GREG SAFETY SECURITY OFFICER Ot F17.210 NICOTINE DEPENDENCE, CIGARETTES, UNCOMPL 11/25/2016 EDY, GREG SAFETY SECURITY OFFICER Ot K21.9 GASTRO-ESOPHAGEAL REFLUX DISEASE WITHOUT 11/25/2016 EDY, GREG SAFETY SECURITY OFFICER Ot R33.9 RETENTION OF URINE, UNSPECIFIED 11/25/2016 EDY, GREG SAFETY SECURITY OFFICER Ot Z98.890 OTHER SPECIFIED POSTPROCEDURAL STATES 11/27/2016 EDY, GREG SAFETY SECURITY OFFICER Ot F17.210 NICOTINE DEPENDENCE, CIGARETTES, UNCOMPL 11/27/2016 EDY, GREG SAFETY SECURITY OFFICER Ot K21.9 GASTRO-ESOPHAGEAL REFLUX DISEASE WITHOUT 11/27/2016 EDY, GREG SAFETY SECURITY OFFICER Ot R33.9 RETENTION OF URINE, UNSPECIFIED 11/27/2016 EDY, GREG SAFETY SECURITY OFFICER Ot Z98.890 OTHER SPECIFIED POSTPROCEDURAL STATES 11/30/2016 RAEANN THOMAS SAFETY SECURITY OFFICER Ot N30.01 ACUTE CYSTITIS WITH HEMATURIA 12/01/2016 RANI DIEGO MD Ot F17.210 NICOTINE DEPENDENCE, CIGARETTES, UNCOMPL 12/01/2016 RANI DIEGO MD Ot I10 ESSENTIAL (PRIMARY) HYPERTENSION 12/01/2016 RANI DIEGO MD Ot N39. 0 URINARY TRACT INFECTION, SITE NOT SPECIF 12/01/2016 RANI DIEGO MD Ot R30. 0 DYSURIA 12/01/2016 RANI DIEGO MD Ot Z85. 43 PERSONAL HISTORY OF MALIGNANT NEOPLASM O 12/01/2016 RANI DIEGO MD Ot Z87. 19 PERSONAL HISTORY OF OTHER DISEASES OF TH 12/01/2016 RANI DIEGO MD Ot Z90. 49 ACQUIRED ABSENCE OF OTHER SPECIFIED PART 12/01/2016 RANI DIEGO MD Ot Z90.710 ACQUIRED ABSENCE OF BOTH CERVIX AND UTER 12/03/2016 EDY GREG HARRISP Ot F17.210 NICOTINE DEPENDENCE, CIGARETTES, UNCOMPL 12/03/2016 EDY GREG SAFETY SECURITY OFFICER Ot K21.9 GASTRO-ESOPHAGEAL REFLUX DISEASE WITHOUT 12/03/2016 GREG SNOWP Ot R33.9 RETENTION OF URINE, UNSPECIFIED 12/03/2016 GREG SNOWP Ot Z98.890 OTHER SPECIFIED POSTPROCEDURAL STATES 12/04/2016 JONH HOLLIDAY, MIGUEL Menendez Ot M47.12 OTHER SPONDYLOSIS WITH MYELOPATHY, CERVI 12/04/2016 JONH HOLLIDAY, MIGUEL Menendez Ot R27 .0 ATAXIA, UNSPECIFIED 02/20/2017 Ot 793.80 UNS PEC ABNORMAL MAMMOGRAM 02/20/2017 Ot 616.2 COY [place] CYST 02/20/2017 Ot V72.84 EXA M PRE- OPERATIVE NOS 02/20/2017 Ot 733.90 BON E CARTILAGE DIS NOS 02/20/2017 JOSIAS GUERRERO SAFETY SECURITY OFFICER Ot 793.80 UNSPEC ABNORMAL MAMMOGRAM 02/20/2017 JOSIAS GUERRERO SAFETY SECURITY OFFICER Ot V76.12 OTH SCREEN MAMMO-MALIGN NEOPLASM OF JOHN 02/20/2017 JOSIAS GUERRERO SAFETY SECURITY OFFICER Ot 793.80 UNSPEC ABNORMAL MAMMOGRAM 02/20/2017 JOSIAS GUERRERO SAFETY SECURITY OFFICER Ot 793.80 UNSPEC ABNORMAL MAMMOGRAM 02/20/2017 JOSIAS GUERRERO SAFETY SECURITY OFFICER Ot V67.9 FOLLOW-UP EXAM NOS 02/20/2017 KYLE CHAVEZ DO Ot V76.1 2 OTH SCREEN MAMMO-MALIGN NEOPLASM OF JOHN 02/20/2017 KYLE CHAVEZ DO Ot N81.8 9 OTHER FEMALE GENITAL PROLAPSE 02/20/2017 KYLE CHAVEZ DO Ot Z01.8 12 ENCOUNTER FOR PREPROCEDURAL LABORATORY E 02/20/2017 KYLE CHAVEZ DO Ot Z11.2 ENCOUNTER FOR SCREENING FOR OTHER BACTER 02/20/2017 SHAHID HOLLIDAY, YULIANA Ot D47. 2 MONOCLONAL GAMMOPATHY 02/20/2017 SHAHID HOLLIDAY, YULIANA Ot F17.210 NICOTINE DEPENDENCE, CIGARETTES, UNCOMPL 02/20/2017 SHAHID HOLLIDAY, YULIANA Ot F32. 9 MAJOR DEPRESSIVE DISORDER, SINGLE EPISOD 02/20/2017 YULIANA KEY MD Ot F41. 9 ANXIETY DISORDER, UNSPECIFIED 02/20/2017 YULIANA KEY MD Ot M79. 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 02/20/2017 KYLE CHAVEZ DO Ot Z12.3 1 ENCNTR SCREEN MAMMOGRAM FOR MALIGNANT NE 02/20/2017 NAHOMY HANCOCK Ot R10.11 RIGHT UPPER QUADRANT PAIN 02/20/2017 JONH HOLLIDAY, MIGUEL Menendez Ot M47.12 OTHER SPONDYLOSIS WITH MYELOPATHY, CERVI 02/20/2017 JONH HOLLIDAY, MIGUEL Menendez Ot R27 .0 ATAXIA, UNSPECIFIED 02/20/2017 JONH HOLLIDAY, MIGUEL Menendez Ot M47.12 OTHER SPONDYLOSIS WITH MYELOPATHY, CERVI 02/20/2017 JONH HOLLIDAY, MIGUEL Menendez Ot R27 .0 ATAXIA, UNSPECIFIED 02/20/2017 CAIT HOLLIDAY, ADRIAN Oconnor Ot Z01.818 ENCOUNTER FOR OTHER PREPROCEDURAL EXAMIN 02/20/2017 CAIT HOLLIDAY, ADRIAN Oconnor Ot Z86.010 PERSONAL HISTORY OF COLONIC POLYPS 02/20/2017 RAEANN THOMAS SAFETY SECURITY OFFICER Ot N30.01 ACUTE CYSTITIS WITH HEMATURIA 02/20/2017 [...] Z87.19 PERSONAL HISTORY OF OTHER DISEASES OF 08/26/2017 YOSI MG MD Ot Z87.42 PERSONAL HISTORY OF OTH DISEASES OF THE 08/26/2017 YOSI MG MD Ot Z87.891 PERSONAL HISTORY OF NICOTINE DEPENDENCE 08/26/2017 YOSI MG MD Ot Z88 .5 ALLERGY STATUS TO NARCOTIC AGENT STATUS 08/26/2017 YOSI MG MD Ot Z90.49 ACQUIRED ABSENCE [...] .9 ANXIETY DISORDER, UNSPECIFIED 08/28/2017 YOSI MG MD Ot G43.909 MIGRAINE, UNSP, [...] Z87.19 PERSONAL HISTORY OF OTHER DISEASES OF 08/28/2017 YOSI MG MD Ot Z87.42 PERSONAL [...] Ot Z98.890 OTHER SPECIFIED POSTPROCEDURAL STATES 09/07/2017 KARISSA, NAHOMY SAFETY SECURITY OFFICER Ot M54.42 LUMBAGO WITH SCIATICA, LEFT SIDE 09/12/2017 KARISSA, NAHOMY SAFETY SECURITY OFFICER Ot M54.42 LUMBAGO WITH SCIATICA, LEFT SIDE 09/12/2017 KARISSA, NAHOMY SAFETY SECURITY OFFICER Ot M54.42 LUMBAGO WITH SCIATICA, LEFT SIDE 09/13/2017 KARISSA, NAHOMY SAFETY SECURITY OFFICER Ot M54.42 LUMBAGO WITH SCIATICA, LEFT SIDE 10/12/2017 SARAH NG MD Ot M46.86 OTHER SPECIFIED INFLAMMATORY SPONDYLOPAT 10/12/2017 SARAH NG MD R Ot M47.24 OTHER SPONDYLOSIS WITH RADICULOPATHY, 10/12/2017 [...] MD Ot M47.26 OTHER SPONDYLOSIS WITH RADICULOPATHY, JOSE M 10/31/2017 SARAH NG MD Ot M48.061 SPINAL STENOSIS, LUMBAR REGION WITHOUT N 10/31/2017 SARAH NG MD Ot M89.38 HYPERTROPHY OF BONE, OTHER SITE 11/06/2017 SARAH NG MD Ot M46.86 OTHER SPECIFIED INFLAMMATORY SPONDYLOPAT 11/06/2017 SARAH NG MD Ot M47.24 OTHER SPONDYLOSIS WITH RADICULOPATHY, TH 11/06/2017 BERENICE HOLLIDAY, SARAH Masterson Ot M47.26 OTHER SPONDYLOSIS WITH RADICULOPATHY, JOSE M 11/06/2017 BERENICE HOLLIDAY, SARAH Masterson Ot M48.061 SPINAL STENOSIS, LUMBAR REGION WITHOUT N 11/06/2017 BERENICE HOLLIDAY, SARAH Masterson Ot M89.38 HYPERTROPHY OF BONE, OTHER SITE 03/18/2018 IBRAHIMA HOLLIDAY, COLIN Gilbert Ot Z01.8 18 ENCOUNTER FOR OTHER PREPROCEDURAL EXAMIN 03/26/2018 JOSIAS GUERRERO SAFETY SECURITY OFFICER Ot 793.80 UNSPEC ABNORMAL MAMMOGRAM 03/26/2018 JOSIAS GUERREROP Ot V76.12 OTH SCREEN MAMMO-MALIGN NEOPLASM OF JOHN 03/26/2018 JOSIAS GUERRERO SAFETY SECURITY OFFICER Ot 793.80 UNSPEC ABNORMAL MAMMOGRAM 03/26/2018 JOSIAS GUERRERO SAFETY SECURITY OFFICER Ot 793.80 UNSPEC ABNORMAL MAMMOGRAM 03/26/2018 JOSIAS GUERRERO SAFETY SECURITY OFFICER Ot V67.9 FOLLOW-UP EXAM NOS 03/26/2018 KYLE [...] DEPRESSIVE DISORDER, SINGLE EPISOD 03/26/2018 YULIANA KEY MD, Ot F41. 9 ANXIETY DISORDER, UNSPECIFIED 03/26/2018 YULIANA KEY MD Ot M79. 7 FIBROMYALGIA 03/26/2018 YULIANA KEY MD Ot Z79.899 OTHER ASSISTED (CURRENT) DRUG THERAPY 03/26/2018 KYLE CHAVEZ DO Ot Z12.3 1 ENCNTR SCREEN MAMMOGRAM FOR MALIGNANT NE 03/26/2018 NAHOMY HANCOCK Ot R10.11 RIGHT UPPER QUADRANT PAIN 03/26/2018 [...] Z86.010 PERSONAL HISTORY OF COLONIC POLYPS 03/26/2018 RAEANN THOMAS Ot N30.01 ACUTE CYSTITIS WITH HEMATURIA 03/26/2018 NAHOMY HANCOCK Ot Z12.31 ENCNTR SCREEN MAMMOGRAM FOR MALIGNANT NE 03/26/2018 BERENICE HOLLIDAY, SARAH R Ot M46.86 OTHER SPECIFIED INFLAMMATORY SPONDYLOPAT 03/26/2018 BERENICE HOLLIDAY, SARAH R Ot M47.24 OTHER SPONDYLOSIS WITH RADICULOPATHY, TH 03/26/2018 BERENICE HOLLIDAY, SARAH R Ot M47.26 OTHER SPONDYLOSIS WITH RADICULOPATHY, JOSE M 03/26/2018 BERENICE HOLLIDAY, SARAH R Ot [...] COLIN ALEXANDRA MD Ot Z79.8 99 OTHER MOTOR POOL CLERK (CURRENT) DRUG THERAPY 10/07/2018 KARISSA, NAHOMY SAFETY SECURITY OFFICER Ot Z12.31 ENCNTR SCREEN MAMMOGRAM FOR MALIGNANT NE 10/29/2018 NAHOMY HANCOCKP Ot N95.1 MENOPAUSAL AND FEMALE CLIMACTERIC STATES 10/29/2018 NAHOMY HANCOCK SAFETY SECURITY OFFICER Ot Z12.31 ENCNTR SCREEN MAMMOGRAM FOR MALIGNANT NE 10/29/2018 NAHOMY HANCOCKP Ot N95.1 MENOPAUSAL AND FEMALE CLIMACTERIC STATES 10/29/2018 NAHOMY HANCOCK SAFETY SECURITY OFFICER Ot Z12.31 ENCNTR SCREEN MAMMOGRAM FOR MALIGNANT NE 10/30/2018 NAHOMY HANCOCK SAFETY SECURITY OFFICER Ot M81.0 AGE-RELATED OSTEOPOROSIS W/O CURRENT PAT 10/30/2018 NAHOMY HANCOCKP Ot Z12.31 ENCNTR SCREEN MAMMOGRAM FOR MALIGNANT NE 10/30/2018 NAHOMY HANCOCK SAFETY SECURITY OFFICER Ot Z13.820 ENCOUNTER FOR SCREENING FOR OSTEOPOROSIS 10/30/2018 NAHOMY HANCOCKP Ot Z78.0 ASYMPTOMATIC MENOPAUSAL STATE 10/30/2018 NAHOMY HANCOCK SAFETY SECURITY OFFICER Ot Z87.891 PERSONAL HISTORY OF NICOTINE DEPENDENCE 11/07/2018 NAHOMY HANCOCK SAFETY SECURITY OFFICER Ot Z87.891 PERSONAL HISTORY OF NICOTINE DEPENDENCE 11/13/2018 NAHOMY HANCOCKP Ot F17.210 NICOTINE DEPENDENCE, CIGARETTES, UNCOMPL 11/13/2018 NAHOMY HANCOCKP Ot Z12.2 ENCNTR SCREEN FOR MALIGNANT NEOPLASM OF 11/19/2018 NAHOMY HANCOCKP Ot M81.0 AGE-RELATED OSTEOPOROSIS W/O CURRENT PAT 11/19/2018 NAHOMY HANCOCK SAFETY SECURITY OFFICER Ot Z12.31 ENCNTR SCREEN MAMMOGRAM FOR MALIGNANT NE 11/19/2018 NAHOMY HANCOCK SAFETY SECURITY OFFICER Ot Z13.820 ENCOUNTER FOR SCREENING FOR OSTEOPOROSIS 11/19/2018 NAHOMY HANCOCK SAFETY SECURITY OFFICER Ot Z78.0 ASYMPTOMATIC MENOPAUSAL STATE 12/05/2018 NAHOMY HANCOCK SAFETY SECURITY OFFICER Ot F17.210 NICOTINE DEPENDENCE, CIGARETTES, UNCOMPL 12/05/2018 NAHOMY HANCOCK SAFETY SECURITY OFFICER Ot Z12.2 ENCNTR SCREEN FOR MALIGNANT NEOPLASM OF 05/24/2019 SHAHID HOLLIDAY, YULIANA Ot D47. 2 MONOCLONAL GAMMOPATHY 05/24/2019 SHAHID HOLLIDAY, YULIANA Ot F17.210 NICOTINE DEPENDENCE, CIGARETTES, UNCOMPL 05/24/2019 YULIANA KEY MD, Ot F32. 9 MAJOR DEPRESSIVE DISORDER, SINGLE EPISOD 05/24/2019 SHAHID HOLLIDAY, YULIANA Almeida F41. 9 ANXIETY DISORDER, UNSPECIFIED 05/24/2019 YULIANA KEY MD Ot M79. 7 FIBROMYALGIA 05/24/2019 SHAHID HOLLIDAY, YULIANA Almeida Z79.899 OTHER ASSISTED (CURRENT) DRUG THERAPY 05/24/2019 YULIANA KEY MD, Ot D47. 2 MONOCLONAL GAMMOPATHY 05/24/2019 YULIANA KEY MD Ot F17.210 NICOTINE DEPENDENCE, CIGARETTES, UNCOMPL 05/24/2019 YULIANA KEY MD, Ot F32. 9 MAJOR DEPRESSIVE DISORDER, SINGLE EPISOD 05/24/2019 YULIANA KEY MD, Ot F41. 9 ANXIETY DISORDER, UNSPECIFIED 05/24/2019 YULIANA KEY MD Ot M79. 7 FIBROMYALGIA 05/24/2019 YULIANA KEY MD, Ot Z79.899 OTHER MOTOR POOL CLERK (CURRENT) DRUG THERAPY 05/27/2019 PARAM AGUILA GABRIEL Ot F17.21 0 NICOTINE DEPENDENCE, CIGARETTES, UNCOMPL 05/27/2019 PARAM AGUILA GABRIEL Ot F31.9 BIPOLAR DISORDER, UNSPECIFIED 05/27/2019 PARAM AGUILA GABRIEL Ot F41.9 ANXIETY DISORDER, UNSPECIFIED 05/27/2019 PARAM AGUILA GABRIEL Ot G43.90 9 MIGRAINE, UNSP, NOT INTRACTABLE, WITHOUT 05/27/2019 PARAM AGUILA GABRIEL Ot G89.29 OTHER CHRONIC PAIN 05/27/2019 PARAM DO GABRIEL Ot I10 ESSENTIAL (PRIMARY) HYPERTENSION 05/27/2019 PARAM AGUILA GABRIEL Ot J30.2 OTHER SEASONAL ALLERGIC RHINITIS 05/27/2019 PARAM AGUILA GABRIEL Ot K21.9 GASTRO-ESOPHAGEAL REFLUX DISEASE WITHOUT 05/27/2019 PARAM AGUILA GABRIEL Ot K58.9 IRRITABLE BOWEL SYNDROME WITHOUT [...] K21.9 GASTRO-ESOPHAGEAL REFLUX DISEASE WITHOUT 05/27/2019 PARAM AGUILA GABRIEL Ot K58.9 IRRITABLE BOWEL SYNDROME WITHOUT [...] INITIAL ENCOUNTER 05/27/2019 PARAM AGUILA GABRIEL Ot Z88.5 ALLERGY STATUS TO NARCOTIC AGENT [...] MILLER DO, TAMIKO L Ot Z79.5 1 ASSISTED (CURRENT) USE OF INHALED STERO 05/29/2019 MILLER DO, TAMIKO L Ot Z79.5 2 ASSISTED (CURRENT) USE OF SYSTEMIC STER 05/29/2019 MILLER [...] MILLER DO, TAMIKO L Ot Z79.5 1 MOTOR POOL CLERK (CURRENT) USE OF INHALED STERO 06/02/2019 MILLER DO, TAMIKO L Ot Z79.5 2 MOTOR POOL CLERK (CURRENT) USE OF SYSTEMIC STER 06/02/2019 MILLER [...] OF BOTH CERVIX AND UTER 06/02/2019 MILLER DOTAMIKO Ot Z90.8 9 ACQUIRED ABSENCE OF OTHER ORGANS 07/05/2019 ARASELI, NEHAL E FRUIT FARMWORKER Ot S42.251A DISP FX OF GREATER TUBEROSITY OF RIGHT H 07/05/2019 ARASELI, NEHAL E FRUIT FARMWORKER Ot X58.XXXA EXPOSURE TO OTHER SPECIFIED FACTORS, INI 07/17/2019 ARASELI, NEHAL E FRUIT FARMWORKER Ot S42.251A DISP FX OF GREATER TUBEROSITY OF RIGHT H 07/17/2019 ARASELI, NEHAL E FRUIT FARMWORKER Ot X58.XXXA EXPOSURE TO OTHER SPECIFIED FACTORS, INI 08/11/2019 ARASELI, NEHAL E FRUIT FARMWORKER Ot S42.251A DISP FX OF GREATER TUBEROSITY OF RIGHT H 08/11/2019 ARASELI, NEHAL E FRUIT FARMWORKER Ot X58.XXXA EXPOSURE TO OTHER SPECIFIED FACTORS, INI 08/12/2019 ARASELI, NEHAL E FRUIT FARMWORKER Ot S42.251A DISP FX OF GREATER TUBEROSITY OF RIGHT H 08/12/2019 ARASELI, NEHAL E FRUIT FARMWORKER Ot X58.XXXA EXPOSURE TO OTHER SPECIFIED FACTORS, INI 10/10/2019 ARASELI, NEHAL E FRUIT FARMWORKER Ot S42.251A DISP FX OF GREATER TUBEROSITY OF RIGHT H 10/10/2019 ARASELI, NEHAL E FRUIT FARMWORKER Ot X58.XXXA EXPOSURE TO OTHER SPECIFIED FACTORS, INI 10/15/2019 ARASELI, NEHAL E FRUIT FARMWORKER Ot S42.251A DISP FX OF GREATER TUBEROSITY OF RIGHT H 10/15/2019 ARASELI, NEHAL E FRUIT FARMWORKER Ot X58.XXXA EXPOSURE TO OTHER SPECIFIED FACTORS, INI 10/20/2019 ARASELI, NEHAL E FRUIT FARMWORKER Ot S42.301D UNSP FX SHAFT OF HUMER, RIGHT ARM, SUBS 10/20/2019 ARASELI, NEHAL E FRUIT FARMWORKER Ot W13.3XXD FALL THROUGH FLOOR, SUBSEQUENT ENCOUNTER 10/27/2019 ARSAELI, NEHAL E FRUIT FARMWORKER Ot S42.301D UNSP FX SHAFT OF HUMER, RIGHT ARM, SUBS 10/27/2019 ARASELI, NEHAL E FRUIT FARMWORKER Ot W13.3XXD FALL THROUGH FLOOR, SUBSEQUENT ENCOUNTER 11/06/2019 W G89.29 Oth er chronic pain Carissa Demarco 11/06/2019 W K21.9 Catrachita ro-esophageal reflux disease without esophagitis Nilam Berino 11/06/2019 W M54.9 Courtesy Car Driver markus back pain Yantis Berino 11/06/2019 W M81.0 Age- related osteoporosis without current pathological fracture Nilam Berino 11/06/2019 W R09.81 Carl al sinus congestion Nilam Berino 11/11/2019 ARASELI NEHAL E FRUIT FARMWORKER Ot S42.301D UNSP FX SHAFT OF HUMER, RIGHT ARM, SUBS 11/11/2019 ARASELI NEHAL E FRUIT FARMWORKER Ot W13.3XXD FALL THROUGH FLOOR, SUBSEQUENT ENCOUNTER 11/13/2019 W Z12.31 Enc ounter for screening mammogram for malignant neoplasm of breast Yantis Berino 11/13/2019 NILAM HOLLIDAY, CRANDALL A Ot Z12.31 ENCNTR SCREEN MAMMOGRAM FOR MALIGNANT NE 11/17/2019 ARASELI NEHAL E FRUIT FARMWORKER Ot S42.301D UNSP FX SHAFT OF HUMER, RIGHT ARM, SUBS 11/17/2019 ARASELI NEHAL E FRUIT FARMWORKER Ot W13.3XXD FALL THROUGH FLOOR, SUBSEQUENT ENCOUNTER 11/20/2019 W R31.0 Thomas adonis lei Stephanie 11/20/2019 W R31.0 Thomas adonis lei Stephanie 11/27/2019 EDY, GREG SAFETY SECURITY OFFICER Ot F31.9 BIPOLAR DISORDER, UNSPECIFIED 11/27/2019 EDY, GREG SAFETY SECURITY OFFICER Ot F41.9 ANXIETY DISORDER, UNSPECIFIED 11/27/2019 EDY, GREG SAFETY SECURITY OFFICER Ot G43.909 MIGRAINE, UNSP, NOT INTRACTABLE, WITHOUT 11/27/2019 EDY, GREG SAFETY SECURITY OFFICER Ot I10 ESSENTIAL (PRIMARY) HYPERTENSION 11/27/2019 EDY, GREG SAFETY SECURITY OFFICER Ot K21.9 GASTRO-ESOPHAGEAL REFLUX DISEASE WITHOUT 11/27/2019 EDY, GREG SAFETY SECURITY OFFICER Ot N39.0 URINARY TRACT INFECTION, SITE NOT SPECIF 11/27/2019 EDY, GREG SAFETY SECURITY OFFICER Ot R31.9 HEMATURIA, UNSPECIFIED 11/27/2019 EDY, GREG SAFETY SECURITY OFFICER Ot Z79.52 MOTOR POOL CLERK (CURRENT) USE OF SYSTEMIC STER 11/27/2019 EDY, GREG SAFETY SECURITY OFFICER Ot Z82.49 FAMILY HX OF ISCHEM HEART DIS AND OTH DI 11/27/2019 EDY, GREG SAFETY SECURITY OFFICER Ot Z85.841 PERSONAL HISTORY OF MALIGNANT NEOPLASM O 11/27/2019 GREG SNOW SAFETY SECURITY OFFICER Ot Z88.5 ALLERGY STATUS TO NARCOTIC AGENT STATUS 12/04/2019 W J01.80 Oth er acute sinusitis Casa, Rachel 12/04/2019 W J30.89 Oth er allergic rhinitis Casa, Rachel 12/04/2019 W R05 Cough Casa, Rachel 12/11/2019 W J01.80 Oth er acute sinusitis Casa, Rachel 12/11/2019 W J30.89 Oth er allergic rhinitis Casa, Rachel 12/11/2019 W R05 Cough Casa, Rachel 12/31/2019 W J30.89 Oth er allergic rhinitis Casa, Rachel 12/31/2019 W R30.0 Dysuria Casa, Rachel 01/02/2020 W J30.89 Oth er allergic rhinitis Casa, Rachel 01/02/2020 W R30.0 Dysuria Casa, Rachel 01/15/2020 W R30.0 Dysuria Casa, Rachel 01/15/2020 W R31.9 Thomas do Benjamin, Rachel 01/22/2020 P N390 Urina ry tract infection, site not specified 01/22/2020 S 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, not elsewhere classified 01/22/2020 P N390 Urina ry tract infection, site not specified 01/22/2020 S R339 Reten tion of urine, unspecified 01/22/2020 W R30.0 Dysuria Casa, Rachel 01/22/2020 W R31.9 Thomasnoemí Benjamin, Rachel 01/28/2020 JENNIFER WEAVER MD Ot M81.0 AGE- RELATED OSTEOPOROSIS W/O CURRENT PAT 01/28/2020 JENNIFER WEAVER MD Ot Z78.0 ASYMPTOMATIC MENOPAUSAL STATE 02/01/2020 JENNIFER WEAVER MD Ot M81.0 AGE- RELATED OSTEOPOROSIS W/O CURRENT PAT 02/01/2020 JENNIFER WEAVER MD Ot Z78.0 ASYMPTOMATIC MENOPAUSAL STATE 02/02/2020 BERENICE HOLLIDAY, SARAH Masterson Ot H91.90 UNSPECIFIED HEARING LOSS, UNSPECIFIED EA 02/02/2020 BERENICE HOLLIDAY, SARAH Masterson Ot M54.16 RADICULOPATHY, LUMBAR REGION 02/02/2020 SARAH NG MD Ot M54.40 LUMBAGO WITH SCIATICA, UNSPECIFIED SIDE 02/02/2020 BERENICE HOLLIDAY, SARAH Masterson Ot M79.18 MYALGIA, OTHER SITE 02/02/2020 BERENICE HOLLIDAY, SARAH Masterson Ot M81 .0 AGE-RELATED OSTEOPOROSIS W/O CURRENT PAT 02/02/2020 SARAH NG MD, Ot R13.10 DYSPHAGIA, UNSPECIFIED 02/02/2020 SARAH NG MD, Ot Z87.311 PERSONAL HISTORY OF (HEALED) OTHER PATHO Procedures Code Description [place] [address] ROUT INE VENIPUNCTURE 04/24/2012 23270 THER APUTIC INJ SQ/IM 04/24/2012 J1885 LANDON DOL INJ 04/24/2012 50110 ESR/ SED RATE 04/24/2012 23712 CRP 04/24/2012 95958 RA FACTOR 04/24/2012 ANAANA KATTY ANALYZER (SCREEN) 04/24/2012 11153 TANYA JOSE OF NAIL PLATE 06/01/2012 75976 TANYA JOSE OF NAIL PLATE 06/05/2012 23773 ROUT INE VENIPUNCTURE 09/16/2013 [id number] GF R CALC (RESULT ONLY) 09/16/2013 76973 BMP 09/16/2013 60198 TANYA JOSE OF NAIL BED 10/07/2013 13165 UA W / CULTURE IF INDICATED 02/05/2014 53232 UA W / CULTURE IF INDICATED 03/16/2014 10195 CULT URE URINE 03/17/2014 86853 ROUT INE VENIPUNCTURE 03/24/2014 47418 THER APUTIC INJ SQ/IM 03/24/2014 J3301 TAL LOG INJ, PER 10 MG 03/24/2014 46467 CBC 03/24/2014 [id number] GF R CALC (RESULT ONLY) 03/24/2014 96950 CMP 03/24/2014 PODIATRY W ILDE, ORLY 04/15/2014 43917 MAMM OGRAM DX, RIGHT 05/05/2014 27384 NAIL REMOVAL PERMANENT (PARTIAL OR COMPLETE) 06/26/2014 24011 ROUT INE VENIPUNCTURE 09/16/2014 23326 BONE MINERAL DENSITY, HEEL US (IN HOUSE) 09/16/2014 80028 MARIBEL MIN D 25-HYDROXY (D2,D3, TOTAL) 09/16/2014 58557 VIT B 12 09/16/2014 [id number] RE PAIR PELVIC SUBCU/FASCIA, OPEN APPROAC 05/18/2015 [id number] RE MOVAL OF SYNTH SUB FROM VAGINA CUL-D 05/18/2015 [id number] CO NTROL BLEEDING IN FEMALE PERINEUM, OPE 05/19/2015 Results Test Result Range Basic Metabolic Panel (8) - 03/22/16 11: 01 Glucose, Serum 87 mg/dL 65-99 BUN 4 mg/dL 6-24 Creatinine, Serum 0.43 mg/dL 0.57-1.00 eGFR If NonAfricn Am 112 mL/min/1.73 >59 eGFR If Africn Am 129 mL/min/1.73 >5 9 BUN/Creatinine Ratio 9 9-23 Sodium, Serum 132 mmol/L 134-144 Potassium, Serum 4.7 mmol/L 3.5-5.2 Chloride, Serum 91 mmol/L 97-108 Carbon Dioxide, Total 26 mmol/L 18-29 Calcium, Serum 8.9 mg/dL 8.7-10.2 Complete blood count (CBC) with automate d [...] culture - 04/24/16 09:43 Bacterial urine culture [id number] NRG COLONY COUNT 10,000/ML - 100,000/ML NRG [...] plasma albumin measurement (mass/volume) 3.7 g/dL 3.2-4.5 CBC With Differential/Platelet - 6 12:12 WBC 8.5 x10E3/uL 3.4-10.8 RBC 4.46 x10E6/uL 3.77-5.28 Hemoglobin 13.9 g/dL 11.1-15.9 Hematocrit 40.6 % 34.0-46.6 MCV 91 fL 79-97 MCH 31.2 pg 26.6-33.0 MCHC 34.2 g/dL 31.5-35.7 RDW 13.1 % 12.3-15.4 Platelets 278 x10E3/uL 150-379 Neutrophils 55 % Lymphs 36 % Monocytes 8 % Eos 1 % Basos 0 % Neutrophils (Absolute) 4.6 x10E3/uL 1.4- 7.0 Lymphs (Absolute) 3.1 x10E3/uL 0.7-3.1 Monocytes(Absolute) 0.7 x10E3/uL 0.1-0.9 Eos (Absolute) 0.1 x10E3/uL 0.0-0.4 Baso (Absolute) 0.0 x10E3/uL 0.0-0.2 Immature Granulocytes 0 % Immature Grans (Abs) 0.0 x10E3/uL 0.0-0. 1 Urine Culture, Routine - 05/16/16 10:18 Urine Culture, Routine Note Comprehensive metabolic panel - 05/18/16 13:19 Serum [...] - 05/18/16 13:19 Lipase 6 U/L 8-78 [id number] - 09/20/16 09:12 Serum or plasma urea [...] 10/23/16 14:28 Valproic acid 64.6 ug/mL 50.0-100.0 Lipid Panel - 10/25/16 08:12 Cholesterol, Total 224 mg/dL 100-199 Triglycerides 150 mg/dL 0-149 HDL Cholesterol 74 mg/dL >39 VLDL Cholesterol Vern 30 mg/dL 5-40 LDL Cholesterol Calc 120 mg/dL 0-99 TSH - 10/25/16 08:12 TSH 3.340 uIU/mL 0.450-4.500 Bacterial urine culture - 11/18/16 13:00 URINE [...] culture - 12/01/16 09:43 Bacterial urine culture [id number] NRG COLONY COUNT <10,000 NRG FTX;REPORTABLE NO [...] 12/01/16 10:34 Bacterial blood culture NG NRG Urine Culture, Routine - 12/20/16 09:45 Urine Culture, Routine Note Valproic Acid (Depakote)(R),S - 01/02/17 09:44 Valproic Acid (Depakote),S 71 ug/mL 50- 100 CULTURE, AEROBIC - 04/24/17 09:23 CULTURE, AEROBIC [...] 7-25 CREATININE 0.61 mg/dL 0.50-0.99 eGFR NON-AFR. LUXEMBOURGER 98 mL/min/1.73m2 > OR = 60 eGFR [...] ABO+Rh group OP NRG Transfusion band number [id number] NRG Blood group antibody screen NEGATIVE NR [...] Whole blood basic metabolic panel - 03/18 04:47 Serum or plasma sodium measurement (moles/volume) [...] 7-25 CREATININE 0.74 mg/dL 0.50-0.99 eGFR NON-AFR. LUXEMBOURGER 87 mL/min/1.73m2 > OR = 60 eGFR [...] finding identification by light micr oscopy YES NRG Whole blood basic metabolic panel - 05/18 [...] - 05/29/19 07:07 Lipase 14 U/L 8-78 GC/CHLAMYDIA (SWAB OR URINE)-RAPID - 09:46 CHLAMYDIA TRACHOMATIS RNA, TMA NOT DETECTED NOT DETECTED NEISSERIA GONORRHOEAE RNA, TMA NOT DETECTED NOT DETECTED COMMENT NRG CULTURE, GENITAL - 09/01/19 09:46 CULTURE, GENITAL SEE NOTE NRG Complete urinalysis with reflex to cultu re - 11/27/19 10:21 Urine color determination YELLOW NRG Urine clarity determination CLEAR NR G Urine pH measurement by test strip 7.0 5-9 Specific gravity of urine by test strip 1.015 1.016-1.022 Urine protein assay by test strip, semi-quantitative 1+ NEGATIVE Urine glucose detection by automated test strip NE GATIVE NEGATIVE Erythrocytes detection in urine sediment by light micr oscopy 3+ NEGATIVE Urine ketones detection by automated test strip TR BARBARA NEGATIVE Urine nitrite detection by test strip NEGATIVE NEGATIVE Urine total bilirubin detection by test strip NEGA TIVE NEGATIVE Urine urobilinogen measurement by automated test strip (mass/volume) 0.2 mg/dL < = 1.0 Urine leukocyte esterase detection by dipstick 3+ [...] culture YES NRG Bacterial urine culture - 11/27/19 10:21 Bacterial urine culture [id number] NRG COLONY COUNT 20,000 CFU/ML NRG SUSCEPTIBILITY NO FURTHER TESTING NRG Complete blood count (CBC) with automate d white blood cell (WBC) differential - 11/27/19 11:55 Blood leukocytes automated count (number/volume) 13.4 10*3/uL 4.3-11.0 Blood erythrocytes automated count (number/volume) 4.29 10*6/uL 4.35-5.85 Venous blood hemoglobin measurement (mass/volume) 13.3 g/dL 11.5-16.0 Blood hematocrit (volume fraction) 40 % 35-52 Automated erythrocyte mean corpuscular volume 92 [ foz_us] 80-99 Automated erythrocyte mean corpuscular h emoglobin (mass per erythrocyte) 31 pg 25-34 Automated erythrocyte mean corpuscular h emoglobin concentration measurement (mass/volume) 34 g/dL 32-36 Automated erythrocyte distribution width ratio 12. 5 % 10.0- 14.5 Automated blood platelet count (count/volume) 300 10*3/uL 130-400 Automated blood platelet mean volume measurement 10.3 [foz_us] 7.4-10.4 Automated blood neutrophils/100 leukocytes 71 % 42-75 Automated blood lymphocytes/100 leukocytes 23 % 12-44 Blood monocytes/100 leukocytes 6 % 0-12 Automated blood eosinophils/100 leukocytes 0 % 0-10 Automated blood basophils/100 leukocytes 0 % 0-10 Blood neutrophils automated count (number/volume) 9.5 10*3 1.8-7.8 Blood lymphocytes automated count (number/volume) 3.1 10*3 1.0-4.0 Blood monocytes automated count (number/volume) 0. 8 10*3 0.0-1.0 Automated eosinophil count 0.0 10*3/uL 0 .0-0.3 Automated blood basophil count (count/volume) 0.0 10*3/uL 0.0-0.1 Blood lactic acid measurement (moles/vol ume) - 11/27/19 11:55 Blood lactic acid measurement (moles/volume) 1.94 mmol/L 0.50-2.00 Comprehensive metabolic panel - 11/27/19 11:55 Serum or plasma sodium measurement (moles/volume) 130 mmol/L 135-145 Serum or plasma potassium measurement (moles/volume) 4.3 mmol/L 3.6-5.0 Serum or plasma chloride measurement (moles/volume) 94 mmol/L 98-107 Carbon dioxide 26 mmol/L 21-32 Serum or plasma anion gap determination (moles/volume) 10 mmol/L 5-14 Serum or plasma urea nitrogen measurement (mass/volume ) 10 mg/dL 7-18 Serum or plasma creatinine measurement (mass/volume) 0.82 mg/dL 0.60-1.30 Serum or plasma urea nitrogen/creatinine mass ratio 12 NRG Serum or plasma creatinine measurement w ith calculation of estimated glomerular filtration rate > NRG Serum or plasma glucose measurement (mass/volume) 130 mg/dL 70-105 Serum or plasma calcium measurement (mass/volume) 8.8 mg/dL 8.5-10.1 Serum or plasma total bilirubin measurement (mass/volu me) 0.3 mg/dL 0.1-1.0 Serum or plasma alkaline phosphatase shakira surement (enzymatic activity/volume) 110 U/L 40-136 Serum or plasma aspartate aminotransfera se measurement (enzymatic activity/volume) 18 U/L 5-34 Serum or plasma alanine aminotransferase measurement (enzymatic activity/volume) 14 U/L 0-55 Serum or plasma protein measurement (mass/volume) 6.8 g/dL 6.4-8.2 Serum or plasma albumin measurement (mass/volume) 4.0 g/dL 3.2-4.5 CALCIUM CORRECTED 8.8 mg/dL 8.5-10.1 COVID-19 ([facility]) - 12/02/19 12:59 CBC W/ AUTO DIFF (RFLX MAN DIFF IF IND) - 01/22/20 11:45 CBC W/ AUTO DIFF (RFLX MAN DIFF IF IND) N/A NRG WBC 10.7 TH/CMM 4.5-10.8 RBC 4.18 ML/CMM 4.20-5.40 HGB 13.2 G/DL 12.0-16.0 HCT 39.9 % 37.0-47.0 MCV 96 FL 81-99 MCH 31.6 PG 27.0-33.0 MCHC 33.1 G/DL 31.0-36.0 RDW SD 44 FL 36-50 RDW CV 12.5 % 0.0-14.8 MPV 9.6 FL 9.3-12.5 PLT 319 TH/CMM 130-440 NRBC# 0.00 TH/CMM 0.00-0.00 NRBC% 0.0 /100WBC 0.0-2.0 %NEUT 61.3 % NRG %LYMP 30.4 % NRG %MONO 7.5 % NRG %EOS 0.0 % NRG %BASO 0.5 % NRG #NEUT 6.57 TH/CMM 2.10-8.20 #LYMP 3.25 TH/CMM 0.90-5.20 #MONO 0.80 TH/CMM 0.16-1.00 #EOS 0.00 TH/CMM 0.00-0.80 #BASO 0.05 TH/CMM 0.00-0.20 MANUAL DIFF NOT IND NRG BASIC METABOLIC PANEL - 01/22/20 11:45 GLUCOSE 95 MG/DL 70-100 SODIUM 134 MEQ/L 135-148 POTASSIUM 4.2 MEQ/L 3.5-5.3 CHLORIDE 97 MEQ/L 96-110 CO2 27 MEQ/L 22-29 BUN 9 MG/DL 8-22 CREATININE 0.76 MG/DL 0.57-1.11 CALCIUM 9.1 MG/DL 8.2-10.6 AGE 64 yrs NRG GFR NonAA 77 NRG GFR AA 93 NRG eGFR 77 mL/min/1.7 NRG eGFR AA* >60 mL/min/1.7 NRG BASIC METABOLIC PANEL N/A NRG UA W/MICRO C&S IF IND - 01/22/20 11:55 GLUCOSE Normal NL: NEGATIVE mg/dl UA W/MICRO C&S IF IND N/A NRG COLOR Yellow NL: YELLOW CLARITY Clear NL: CLEAR SPEC GRAV 1.013 NL: 1.002 - 1.022 pH 6.5 NL: 5 - 9 PROTEIN Negative NL: NEGATIVE mg/dl KETONE Negative NL: NEGATIVE mg/dl BILIRUBIN Negative NL: NEGATIVE BLOOD Negative NL: NEGATIVE NITRITE Negative NL: NEGATIVE LEUK SCREEN Negative NL: NEGATIVE RBC/HPF 0-3 NL: NONE SEEN WBC/HPF 0-5 NL: NONE SEEN BACTERIA/HPF None Seen NL: NONE SEEN SQUAMOUS EPI/LPF 2+ NL: NONE SEE N MUCOUS/LPF Few NL: NONE SEEN CULT SET UP? NO NRG HYALINE CAST/LPF 2+ NL: NONE SEE N CYTOCHECK COVID-19 - 01/31/20 10:02 [id number] NOT DETECTED Not Detecte d Encounters ACCT No. Visit Date/Time Discharge Status Pt. Type Provider Facility Loc./Unit Complaint [id number] 01/31/2020 17:04:37 Document Registration [id number] 01/22/2020 12:17:35 Document Registration [id number] 01/22/2020 11:28:00 Document Registration [id number] 01/22/2020 14:26:35 01/22/2020 23:59: 59 CLS Outpatient MIREILLE HERMAN [id number] 09/26/2018 10:00:00 09/26/2018 23:59: 00 DIS Outpatient MIGUEL BORJA [id number] 02/05/2018 14:19:00 02/05/2018 23:59: 00 DIS Outpatient MIGEUL BORJA [id number] 08/02/2017 09:32:00 08/02/2017 23:59: 00 DIS Outpatient MIGUEL BORJA [id number] 03/30/2015 17:02:19 ACT Document Registration [id number] 01/03/2017 07:05:00 Document Registration [id number] 01/29/2020 09:53:00 23:59:59 CLS Outpatient BERENICE HOLLIDAY, SARAH Masterson [facility] REHAB BACK PAIN [id number] 01/26/2020 09:07:00 10:22:00 DIS Outpatient OWEN HOLLIDAY, JENNIFER [facility] SDC POST MENOPAUSAL OSTEOPO ROSIS [id number] 01/14/2020 15:21:00 23:59:59 CLS Outpatient RACHEL BENJAMIN APRN [facility] RAD HEMATURIA, FLANK PAIN [id number] 11/27/2019 09:57:00 12:58:00 DIS Emergency EDYGREG SAFETY SECURITY OFFICER [facility] ER UTI [id number] 11/13/2019 11:41:00 13:56:00 DIS Outpatient 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 [facility] REHAB R SHOULDER HUMERUS FX [id number] 11/12/2019 10:44:00 23:59:59 CLS Outpatient NILAM HOLLIDAY, CARISSA Gilbert [facility] RAD SCREENING [id number] 10/14/2019 10:00:00 00:01:00 DIS Outpatient 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 [facility] REHAB R SHOULDER HUMERUS FX [id number] 07/03/2019 15:25:00 23:59:59 CLS Outpatient NEHAL MARX APRN [facility] RAD 3 PART FRACTURE RIGHT S HEATHER [id number] 05/29/2019 06:50:00 08:43:00 DIS Emergency MILLER DO, TAMIKO L [facility] ER VOMITING,POSS FEVER [id number] 05/23/2019 18:14:00 14:09:00 DIS Inpatient VIRGEN DO, GABRIEL [facility] 4TH L1 VERTBRAE FX W INTRAC TABLE PAIN [id number] 11/13/2018 09:58:00 23:59:59 CLS Outpatient NAHOMY HANCOCK [facility] RAD ENCOUNTER FOR SCREENIN G FOR LUNG CANCER [id number] 10/29/2018 09:01:00 23:59:59 CLS Outpatient NAHOMY HANCOCK [facility] RAD SCREENING [id number] 10/07/2018 10:48:00 23:59:59 CLS Preadmit NAHOMY HANCOCK [facility] RAD POST MENOPAUSAL SYNDROM E [id number] 03/26/2018 06:50:00 11:43:00 DIS Inpatient COLIN ALEXANDRA MD [facility] WS CYSTOCELE, INCONTENENCE [id number] 03/18/2018 05:47:00 13:39:00 DIS Outpatient COLIN ALEXANDRA MD [facility] PREOP CYSTOCELE [id number] 01/09/2018 14:30:00 23:59:59 CLS Preadmit SARAH NG MD [facility] REHAB MID BACK PAIN; CHRONIC BILATERAL LBP [id number] 10/11/2017 08:13:00 23:59:59 CLS Outpatient SARAH NG MD [facility] RAD LUMBAR RADICULOPATHY [id number] 09/13/2017 09:51:00 018 10:19:00 DIS Outpatient NAHOMY HANCOCK [facility] REHAB LBP W [place] LEFT SI DE [id number] 08/26/2017 07:16:00 018 10:35:00 DIS Emergency YOSI MG MD [facility] ER BLOOD IN URINE [id number] 02/20/2017 12:32:00 017 23:59:59 CLS Outpatient NAHOMY AHNCOCK [facility] RAD Z12.31 [id number] 12/01/2016 08:45:00 017 13:06:00 DIS Emergency RANI DIEGO MD [facility] ER UTI/POSS INFECTION [id number] 11/25/2016 13:50:00 017 18:08:00 DIS Emergency GREG SNOW [facility] ER UNABLE TO URINATE [id number] 11/19/2016 15:57:00 017 23:59:59 CLS Outpatient RAEANN THOMAS [facility] LAB ACUTE CYSTITIS WITH HEMATURIA [id number] 11/03/2016 05:34:00 017 23:59:59 CLS Outpatient ADRIAN CHAVIRA MD [facility] PREOP COLONOSCOPY [id number] 10/27/2016 13:20:00 017 15:20:00 DIS Outpatient SARAH NG MD [facility] REHAB CERVICAL STENOSIS [id number] 10/24/2016 13:39:00 017 00:01:00 DIS Outpatient SARAH NG MD [facility] REHAB CERVICAL STENOSIS [id number] 10/23/2016 07:30:00 017 23:59:59 CLS Preadmit ADRIAN CHAVIRA MD [facility] ENDO HISTORY OF POLYPS [id number] 10/23/2016 13:19:00 017 15:48:00 DIS Emergency KATELYN SHIRLEY DO [facility] ER LEFT ARM/LIPS NUMB [id number] 09/27/2016 09:35:00 017 23:59:59 CLS Outpatient MIGUEL BORJA MD [facility] [facility] M47.6 [id number] 09/20/2016 08:59:00 23:59:59 CLS Outpatient MIGUEL BORJA MD [facility] RAD R27.0,M47 [id number] 05/18/2016 13:08:00 016 23:59:59 CLS Outpatient NAHOMY HANCOCK [facility] RAD ABD PAIN, UNSPECIFIED LOCATION [id number] 04/25/2016 08:05:00 016 09:18:00 DIS Emergency THO MORALES MD [facility] ER UTI SYMPTOMS [id number] 04/24/2016 09:08:00 016 13:34:00 DIS Emergency DEMETRIUS RUBIO APRN [facility] ER BLOOD/CLOTS IN URINE [id number] 01/20/2016 10:54:00 016 23:59:59 CLS Outpatient KYLE CHAVEZ DO [facility] RAD ROUTINE [id number] 11/05/2015 00:08:00 016 23:59:59 CLS Preadmit YULIANA KEY MD [facility] ONC [id number] 10/27/2015 14:13:00 016 00:01:00 DIS Outpatient YULIANA KEY MD [facility] ONC [id number] 05/23/2015 16:09:00 015 21:54:00 DIS Emergency QI MACHUCA [facility] ER BLADDER PROBLEMS [id number] 05/19/2015 10:40:00 11:05:00 DIS Inpatient KYLE CHAVEZ DO [facility] LDRP RECCURENT PELVIC PROLAP SE [id number] 05/05/2015 11:39:00 015 23:59:59 CLS Outpatient KYLE CHAVEZ DO Babita [facility] PREOP INTERIOR COLPORHAPHY [id number] 04/29/2015 08:45:00 015 13:40:00 DIS Outpatient ANDREY HOOKER MD [facility] REHAB NECK PAIN [id number] 03/16/2015 09:12:00 015 00:01:00 DIS Outpatient ANDREY HOOKER MD [facility] REHAB NECK PAIN [id number] 01/22/2015 07:34:00 23:59:59 CLS Preadmit TEJA HOLLIDAY, BRUCE E DEBILITY [id number] 01/21/2015 18:00:00 14:37:00 DIS Inpatient GELLENLUZ TEE A [facility] SURGICAL CERVICAL STENOSIS,DEBILITY,UNSTABLE [id number] 12/31/2014 16:09:00 015 23:59:59 CLS Outpatient KYLE CHAVEZ DO Babita [facility] RAD SCREENING [id number] 09/07/2014 08:25:00 015 00:01:00 DIS Outpatient SUE GARCIA [facility] ONC [id number] 10/20/2014 17:41:00 22:59:00 DIS Emergency PROSPER BUTLER [facility] ER HYPERVENTILATING [id number] 10/17/2014 11:15:00 015 13:17:00 DIS Emergency BENITO KLEIN MD [facility] ER UTI [id number] 08/18/2014 05:02:00 015 06:07:00 DIS Emergency PROSPER BUTLER DO [facility] ER SOA [id number] 05/05/2014 11:45:00 014 23:59:59 CLS Outpatient JOSIAS GUERRERO [facility] RAD 6 MONTH FOLLOW UP [id number] 01/28/2014 21:50:00 014 13:45:00 DIS Inpatient EVAN CANO MD [facility] ICU DRUG OVERDOSE;SUICIDE ATTEMPT;DEPRESSION/ANXIETY [id number] 10/24/2013 08:07:00 014 23:59:59 CLS Outpatient JOSIAS GUERRERO [facility] RAD ABNORMAL MAMMO [id number] 10/06/2013 10:09:00 014 23:59:59 CLS Outpatient JOSIAS GUERRERO [facility] RAD SCREENING [id number] 10/14/2012 09:04:00 013 23:59:59 CLS Outpatient JOSIAS GUERRERO [facility] MOBVAN ROUTINE [id number] 02/02/2020 18:51:[address] Emergency PROSPER BUTLER DO [facility] CATH REMOVAL [id number] 07/08/2015 09:47:00 Document Registration [id number] 08/25/2014 16:50:00 Document Registration [id number] 08/17/2014 15:45:00 Document Registration [id number] 08/12/2014 06:37:00 Document Registration [id number] 08/11/2014 02:46:00 Document Registration [id number] 08/10/2014 11:42:00 Document Registration [id number] 09/21/2012 11:05:00 Document Registration [id number] 09/12/2012 08:21:00 Document Registration [id number] 08/06/2012 11:59:00 Document Registration [id number] 05/05/2012 11:46:00 Document Registration [id number] 03/03/2012 15:04:00 Document Registration [id number] 02/20/2012 05:37:00 Document Registration [id number] 02/16/2012 11:40:00 Document Registration [id number] 02/15/2012 20:17:00 Document Registration [id number] 02/13/2012 20:20:00 Document Registration [id number] 02/07/2012 01:30:00 Document Registration [id number] 02/05/2012 19:28:00 Document Registration [id number] 02/01/2012 20:10:00 Document Registration [id number] 09/05/2011 08:18:00 Document Registration [id number] 02/28/2011 12:53:00 Document Registration [id number] 02/10/2011 08:26:00 Document Registration [id number] 01/19/2011 10:03:00 Document Registration [id number] 01/06/2011 09:15:00 Document Registration [id number] 04/28/2016 08:06:00 Document Registration [id number] 12/23/2019 10:00:00 12/23/2019 23:59:5 9 CLS Outpatient Carissa Demarco [facility] [id number] 12/02/2019 11:40:00 Document Registration [id number] 08/30/2019 11:10:00 Document Registration [id number] 03/12/2019 09:20:00 Document Registration [id number] 12/31/2017 10:20:00 Document Registration [id number] 12/31/2017 08:00:00 Document Registration [id number] 05/27/2017 13:00:00 Document Registration [id number] 04/24/2017 08:25:00 Document Registration [id number] 10/12/2014 09:32:00 10/12/2014 23:59: 59 CLS 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, 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 [id number] 09/16/2014 10:09:00 09/16/2014 23:59: 59 CLS Outpatient KARISAS [employer]ER, NAHOMY S [id number] 09/02/2014 11:44:00 09/02/2014 23:59: 59 CLS 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, NAHOMY S [id number] 06/26/2014 07:54:00 06/26/2014 23:59: 59 CLS Outpatient ORLY ELAM DPM [id number] 06/16/2014 08:41:00 06/16/2014 23:59: 59 CLS 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, 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 S [id number] 06/05/2014 08:41:00 06/05/2014 23:59: 59 CLS Outpatient ORLY ELAM DPM [id number] 05/08/2014 10:12:00 05/08/2014 23:59: 59 CLS Outpatient DAVEY STEPHENSON MD [id number] 04/15/2014 14:18:00 04/15/2014 23:59: 59 CLS Outpatient KATELYN HENRIQUEZ APRN [id number] 03/24/2014 08:26:00 03/24/2014 23:59: 59 CLS Outpatient NAHOMY HANCOCK APRN [id number] 03/16/2014 15:51:00 03/16/2014 23:59: 59 CLS Outpatient MONICA TORISARITAMARISABEL A [id number] 03/09/2014 12:20:00 03/09/2014 23:59: 59 CLS Outpatient EVAN CANO MD [id number] 01/29/2014 00:00:00 01/29/2014 23:59: 59 CLS Outpatient NAHOMY HANCOCK APRN [id number] 12/16/2013 11:29:00 12/16/2013 23:59: 59 CLS Outpatient EVAN CANO MD [id number] 10/07/2013 16:01:00 10/07/2013 23:59: 59 CLS Outpatient KATELYN HENRIQUEZ APRN [id number] 09/16/2013 10:22:00 09/16/2013 23:59: 59 CLS Outpatient DAVEY STEPHENSON MD [id number] 05/20/2013 16:31:00 05/20/2013 23:59: 59 CLS Outpatient DAVEY STEPHENSON MD [id number] 05/16/2013 11:59:00 05/16/2013 23:59: 59 CLS Outpatient ROEL LOWERY APRN [id number] 04/18/2013 08:30:00 04/18/2013 23:59: 59 CLS Outpatient DAVEY STEPHENSON MD [id number] 06/04/2012 17:25:00 06/04/2012 23:59: 59 CLS Outpatient [id number] 06/01/2012 14:15:00 06/01/2012 23:59: 59 CLS Outpatient [id number] 05/30/2012 13:22:00 05/30/2012 23:59: 59 CLS Outpatient [id number] 04/24/2012 08:23:00 04/24/2012 23:59:5 9 CLS Outpatient OLEG ISAACS DO [id number] 10/26/2016 10:11:00 Document Registration [id number] 10/28/2019 15:00:42 10/28/2019 23:59:5 9 CLS Outpatient [id number] 05/18/2016 05:05:00 Document Registration [id number] 01/29/2020 13:30:51 Document Registration [id number] 01/29/2020 13:30:47 Document Registration [id number] 01/22/2020 11:28:00 Document Registration [id number] 01/22/2020 10:48:00 Document Registration [id number] 12/22/2016 03:07:00 Document Registration [id number] 03/23/2016 08:07:00 Document Registration
== END 2020-02-02 20:01 | disposition home or self-care (01) ==
LOC: EDUNIT# 18:50 → ER 18:51
DX: T83.091A Other mechanical complication of indwelling urethral catheter, initial encounter (principal); I10 Essential (primary) hypertension; G43.909 Migraine, unspecified, not intractable, without status migrainosus; K21.9 Gastro-esophageal reflux disease without esophagitis; M79.7 Fibromyalgia; F41.9 Anxiety disorder, unspecified; F31.9 Bipolar disorder, unspecified; F17.210 Nicotine dependence, cigarettes, uncomplicated; Z88.8 Allergy status to other drugs, medicaments and biological substances; Z88.5 Allergy status to narcotic agent; Z79.52 Long term (current) use of systemic steroids; Z79.51 Long term (current) use of inhaled steroids; Z85.841 Personal history of malignant neoplasm of brain; Z82.49 Family history of ischemic heart disease and other diseases of the circulatory system
CPT/HCPCS: 99282

== ENCOUNTER 2020-02-19 08:31 | Outpatient (RCR) | payer MEDICARE, MEDICAID ==
[~2020-02-19 08:31] MED LIST changes: -CALC600T14 PO; +CLC600T PO
== END 2020-02-19 09:23 | disposition home or self-care (01) ==
PROVIDERS: ATTEND Student in an Organized Health Care Education/Training Program
DX: M54.16 Radiculopathy, lumbar region (principal); M79.18 Myalgia, other site; H91.90 Unspecified hearing loss, unspecified ear; M81.0 Age-related osteoporosis without current pathological fracture; M54.40 Lumbago with sciatica, unspecified side; R13.10 Dysphagia, unspecified; Z87.311 Personal history of (healed) other pathological fracture

== ENCOUNTER → 2020-03-15 | Outpatient (CLI) | payer MEDICARE, MEDICAID ==
[~2020-03-15] MED LIST changes: -PANT40TA3 PO; +PANT40TA52 PO
--- NOTE | 2020-03-15 15:29 | Diagnostic Imaging Report ---
INDICATION: Right shoulder injury from a fall. FINDINGS: Three views of the right shoulder show no acute fracture or dislocation. There is calcification in the acromiohumeral space suggesting calcific tendinosis of the rotator cuff. IMPRESSION: Probable calcific tendinosis of the rotator cuff. A tiny cortical avulsion of the greater tuberosity could not be excluded. Dictated by: Dictated on workstation # [id number]
--- NOTE | 2020-03-15 15:35 | Diagnostic Imaging Report ---
INDICATION: Fall with right knee pain. TECHNIQUE: AP, oblique, and lateral views of the right knee were obtained. FINDINGS: No fracture or acute bony abnormality is seen. The joint spaces appear unremarkable. There is no joint effusion. IMPRESSION: Negative right knee. Dictated by: Dictated on workstation # [id number]
== END ==
LOC: RAD 14:06
PROVIDERS: ATTEND Nurse Practitioner Family
DX: S49.91XA Unspecified injury of right shoulder and upper arm, initial encounter (principal); M25.561 Pain in right knee; W19.XXXA Unspecified fall, initial encounter
CPT/HCPCS: 73030; 73562

== ENCOUNTER 2020-05-20 14:00 | Outpatient (RCR) | payer MEDICARE, MEDICAID ==
[~2020-05-20 14:00] MED LIST changes: -MONT10TA26 PO; +MONT10TA97 PO
== END 2020-06-21 10:15 | disposition home or self-care (01) ==
PROVIDERS: ATTEND Nurse Practitioner Family
DX: H55.09 Other forms of nystagmus (principal)

== ENCOUNTER → 2020-05-24 | Outpatient (CLI) | payer MEDICARE, MEDICAID | LOC: LABNPT 08:58 | PROVIDERS: ATTEND Family Medicine | DX: Z11.59 Encounter for screening for other viral diseases (principal) | CPT/HCPCS: 87635 ==

== ENCOUNTER → 2020-06-03 | Outpatient (CLI) | payer MEDICARE, MEDICAID ==
--- NOTE | 2020-06-03 10:56 | Diagnostic Imaging Report ---
Clinical indications: Patient neck pain and mid spine pain. Patient's history of previous cervical spine surgery. Patient's history of a fall one year ago. EXAM: MRI of the cervical spine performed without IV contrast. Sequences include sagittal T2, sagittal T1, sagittal T2 fat-sat, and axial T2. COMPARISON: MRI of the cervical spine performed without and with IV contrast dated 09/27/2016. FINDINGS: Again seen postoperative changes to the cervical spine with C5-C7 anterior cervical disk fusion. There is susceptibility hardware artifact which limits evaluation of the adjacent structures. Limited visualization of posterior fossa and cervical spinal cord shows no significant interval change. There is no significant abnormal cord signal. There is again noted cord deformity seen at the C5-C6 and C6-C7 levels due to degenerative disease. There is no significant paraspinal soft tissue abnormality. There are degenerative spurs involving the cervical spine. C1-C2: There is progression of degenerative spurs involving the atlantoodontoid interval and lake-odontoid pannus. There is no significant central canal narrowing. C2-C3: There is severe right facet arthropathy which has not significantly progressed. There is mild left facet arthropathy which has slightly progressed. There is severe bilateral neural foramen narrowing which has progressed. There is a stable small posterior disk bulge. There is progression of ligament flavum buckling. There is mild central canal narrowing which has progressed. C3-C4: There is slight progression of severe right facet arthropathy and mild to moderate left facet arthropathy. There is a subtle posterior disk bulge with small angular tear which has developed in the interim. There is severe right neural foramen narrowing and severe left neural foramen narrowing which has slightly progressed on the left, but stable on the right. There is no significant central canal narrowing. C4-C5: There is stable grade 1 anterolisthesis C4 on C5. There is a stable mild diffuse disk bulge. There is severe left facet arthropathy/hypertrophy and moderate right facet arthropathy/hypertrophy. There is stable severe bilateral neural foramen narrowing (left side more than the right). There is no significant central canal narrowing. C5-C6: Again noted vertebral body prominence posteriorly in the left paracentral region which causes stable moderate central canal stenosis. There is mild bilateral facet arthropathy. There is severe bilateral neural foramen narrowing again seen. C6-C7: There is a stable diffuse disk bulge with small left paracentral component. There is stable mild lateral facet arthropathy. There is stable moderate to severe central canal stenosis. There is severe bilateral neural foramen narrowing (left side more than the right), which is not significantly changed. C7-T1: There is a stable mild diffuse disk bulge and moderate bilateral facet arthropathy. There is stable mild central canal narrowing. There is mild bilateral neural foramen narrowing again seen. IMPRESSION: 1.: Again seen postop changes with C5-C7 anterior cervical disk fusion. There is solid bony bridging/fusion at the C5-C6 level. There is no definite bony bridging/fusion seen at the C6-C7 level. 2: There is severe multilevel cervical spine degenerative disease which is slightly progressed in interim. This described detailed above. 3: Stable grade 1 anterolisthesis C4 on C5. Dictated by: Dictated on workstation # [id number]
--- NOTE | 2020-06-03 11:00 | Diagnostic Imaging Report ---
CLINICAL INDICATION: Patient has neck pain and mid spine pain. Patient has history of previous C-spine surgery and history of a fall one year ago. EXAM: MRI of the thoracic spine performed without IV contrast. Sequences include sagittal T1, sagittal T2, sagittal T2 fat-sat, and axial T2. COMPARISON: None. FINDINGS: There is no acute thoracic spine fracture or dislocation. There is chronic compression deformities of the T11 and T12 vertebra with Schmorl's nodes involving the upper endplate. There is excessive kyphosis of the thoracolumbar region due to the compression deformities. There is Modic type I degenerative signal changes involving the T10-T11, T11-T12 levels. There is Modic type II degenerative signal changes involving the T10-T11 and T11-T12 and L1-L2 levels. The thoracic spinal cord has normal cord caliber with no abnormal signal. There is no significant paraspinal soft tissue abnormality. There are degenerative spurs seen throughout the thoracic spine which is most pronounced at the thoracolumbar region. T1-T2: There is grade 1 anterolisthesis of T1 on T2. There is mild diffuse disc bulge and bilateral facet arthropathy/hypertrophy. There is mild bilateral neural foramen narrowing and mild central canal narrowing. T2-T3: There is a mild diffuse disc bulge with small left paracentral disc herniation component. There is mild bilateral facet arthropathy. There is no significant central spinal canal or neural foramen narrowing. T6-T7: There is a small posterior disc bulge. There is no significant central spinal canal or neural foramen narrowing. There is a small T8-T9 posterior disc bulge. There is bilateral facet arthropathy. There is at least moderate left neural foramen narrowing and mild right neural foramen narrowing. There is no significant central canal narrowing. T9-T10: There is severe left facet arthropathy and mild right facet arthropathy. There is a degenerative facet effusion on the left facet region. There is a small synovial cyst extending medially from the left facet measuring 3 mm x 6 cm and axial dimension and 5 mm in craniocaudal dimension. There is mild central canal stenosis. There is mild left neural foramen narrowing and no significant right neural foramen narrowing. T10-T11: There is moderate bilateral facet arthropathy. There is mild diffuse disc bulge. There is mild central canal narrowing. There is no significant neural foramen narrowing. T11-T12: There is moderate bilateral facet arthropathy. There is mild diffuse disc bulge. There is no significant central spinal canal or neural foramen narrowing. T12-L1: There is severe right facet arthropathy and moderate left facet arthropathy. There is severe right neural foramen narrowing and no significant left neural foramen narrowing. IMPRESSION: 1: There is no acute thoracic spine fracture. There are chronic compression deformities of the T12 and L1 vertebra with slight increased kyphosis of the thoracolumbar region. 2: There is grade 1 anterolisthesis of T1 on T2. 3: There is moderate to severe multilevel thoracic spine degenerative disc disease, as described above. 4: There is severe T9-T10 left facet arthropathy/hypertrophy and degenerative facet effusion. There is a small synovial cyst extending medially and anteriorly in that region which contributes to mild central canal narrowing at the T9-T10 level. Dictated by: Dictated on workstation # [id number]
== END ==
LOC: RAD 09:07
PROVIDERS: ATTEND Student in an Organized Health Care Education/Training Program
DX: M47.814 Spondylosis without myelopathy or radiculopathy, thoracic region (principal); M51.34 Other intervertebral disc degeneration, thoracic region; M40.295 Other kyphosis, thoracolumbar region; M43.16 Spondylolisthesis, lumbar region; R29.6 Repeated falls
CPT/HCPCS: 72141; 72146

== ENCOUNTER → 2020-06-24 | Outpatient (CLI) | payer MEDICARE, MEDICAID ==
--- NOTE | 2020-06-24 14:44 | Diagnostic Imaging Report ---
Indication: Pain in the region left nipple and lateral left breast. Correlation is made prior mammogram from 11/12/2019 and 10/29/2018. Unilateral left 2-D and 3-D diagnostic mammography was performed with CAD. Left breast is heterogeneously dense, limiting sensitivity of mammography. The parenchymal pattern is stable. No mass or malignant appearing microcalcifications are seen. Left axilla is unremarkable. IMPRESSION: BI-RADS 0 No mammographic features suspicious for malignancy are identified. Even so, directed sonographic interrogation of the areas of pain lateral left breast in and around the left nipple is recommended and will be performed today. ACR BI-RADS Category 0: Incomplete. (Needs additional imaging evaluation). Result letter will be mailed to the patient. Note: At least 10% of breast cancer is not imaged by mammography. Dictated by: Dictated on workstation # [id number]
--- NOTE | 2020-06-24 14:47 | Diagnostic Imaging Report ---
Indication: Pain around the left nipple and lateral left breast. Correlation is made with diagnostic mammogram earlier same day. Sonographic interrogation of the areas of pain was performed. There is incidental tiny probable cyst at the 2:00 location approximately 2 mm to 4 mm in size. No other mass is seen. No areas of posterior acoustic shadowing is identified. IMPRESSION: BI-RADS 2 Essentially unremarkable left breast ultrasound at the area of pain apart from tiny incidental cyst. Patient may return to routine annual screening mammography. ACR BI-RADS Category 2: Benign findings. Dictated by: Dictated on workstation # [id number]
== END ==
LOC: RAD 13:45
PROVIDERS: ATTEND Family Medicine
DX: N64.4 Mastodynia (principal)
CPT/HCPCS: 76642; 77065; G0279

== ENCOUNTER 2020-07-06 13:26 | Emergency (ER) | payer MEDICARE, MEDICAID ==
[~2020-07-06] VITALS: Ht 63 cm; Wt 70.0 kg
--- NOTE | 2020-07-06 14:57 | ED Lower Extremity ---
General Chief Complaint: Lower Extremity Stated Complaint: R LEG PAIN Nursing Triage Note: c/o right leg pain that started this morning behind the right knee around 1100 and then it went up to her thigh. Pt states the pain is 9/10. Nursing Sepsis Screen: No Definite Risk Source: patient Exam Limitations: no limitations History of Present Illness Date Seen by Provider: Jul 06, 2020 Time Seen by Provider: 14:15 Initial Comments This is 64-year-old woman presents to the emergency room with pain in the right leg that started posterior to the knee. It is now more focused in the anterior thigh. She denies any injury when the pain started this morning. She does have arthritis and fibromyalgia. She has not taken any specific medications for treatment of this pain yet today. Allergies and Home Medications Allergies Coded Allergies: iodine (Verified Allergy, Severe, HIVES, 05/24/19) morphine (Verified Allergy, Severe, HIVES, 05/24/19) hydrocodone (Verified Allergy, Intermediate, Itching, 05/24/19) oxycodone (Verified Allergy, Intermediate, Itching, 05/24/19) Home Medications Baclofen 20 Mg Tablet, 20 MG PO BID PRN for MUSCLE SPASMS, (Reported) Bupropion HCl 300 Mg Tab.er.24h, 300 MG PO DAILY, (Reported) C,E,Zinc,Copper 11/Xdhpf0l/Lut 1 Each Capsule, 1 EACH PO DAILY, (Reported) Calcium Carbonate 600 Mg Tablet, 1,200 MG PO DAILY, (Reported) Cholecalciferol (Vitamin D3) 1,000 Unit Tablet, 3,000 UNIT PO DAILY, (Reported) Ciprofloxacin HCl 500 Mg Tablet, 500 MG PO BID Prescribed by: GREG SNOW on 11/27/19 1200 Dicyclomine HCl 20 Mg Tablet, 20 MG PO TID, (Reported) Divalproex Sodium 500 Mg Tab.er.24h, 1,000 MG PO HS, (Reported) TAKES 2 (500MG) TABS AT BEDTIME Estradiol 2 Mg Tablet, 2 MG PO DAILY, (Reported) Estradiol 10 Mcg Tablet, 10 MCG VG MoFr, (Reported) Gabapentin 300 Mg Capsule, 300 MG PO BID, (Reported) Hydroxyzine HCl 10 Mg Tablet, 10 MG PO TID PRN for ANXIETY, (Reported) Ibuprofen 600 Mg Tablet, 600 MG PO Q6H PRN for PAIN-MILD, (Reported) L.acidoph & Paracasei,B.lactis 1 Each Capsule, 1 EACH PO DAILY, (Reported) Levocetirizine Dihydrochloride 5 Mg Tablet, 5 MG PO HS, (Reported) Levomilnacipran Hydrochloride 120 Mg Cap.sa.24h, 120 MG PO DAILY, (Reported) Mometasone Furoate 17 Gm [place].pump, 1 SPRAY NSEACH DAILY, (Reported) Multivitamins-Min/FA/Ginkgo 1 Each Tablet, 1 EACH PO DAILY, (Reported) Pantoprazole Sodium 40 Mg Tablet.dr, 40 MG PO DAILY, (Reported) Phenazopyridine HCl 100 Mg Tablet, 100 MG PO Q8H PRN for SPASMS Prescribed by: GREG SNOW on 11/27/19 1237 Polyethylene Glycol 3350 17 Gm Powd.pack, 17 GM PO PRN, (Reported) Selenomethionine 200 Mcg Tablet, 200 MCG PO DAILY, (Reported) Simethicone 125 Mg Tab.chew, 125 MG PO PRN PRN for GAS, (Reported) Tramadol HCl 50 Mg Tablet, 50 MG PO Q6H PRN for PAIN-MILD (1-4), (Reported) Patient Home Medication List Home Medication List Reviewed: Yes Review of Systems Constitutional: no symptoms reported EENTM: no symptoms reported Respiratory: no symptoms reported Cardiovascular: no symptoms reported Gastrointestinal: no symptoms reported Genitourinary: no symptoms reported Musculoskeletal: see HPI Skin: no symptoms reported Psychiatric/Neurological: No Symptoms Reported Past Izwryso-Kjysvi-Xmanfr Hx Past Med/Social Hx: Reviewed Nursing Past Med/Soc Hx Patient Social History Alcohol Use: Occasionally Uses Type Used: Cigarettes 2nd Hand Smoke Exposure: No Recent Infectious Disease Expo: No Recent Hopitalizations: No Immunizations Up To Date Tetanus Booster (TDap): More than 5yrs PED Vaccines UTD: No Date of Pneumonia Vaccine: Apr 23, 2018 Date of Influenza Vaccine: Mar 19, 2019 Seasonal Allergies Seasonal Allergies: Yes Past Medical History Surgeries: Yes (neck fusion, bladder tie up, ovarian cystectomy, cystocele/rectocele ) Adenoidectomy, Appendectomy, Bladder Surgery, Eye Surgery, Gallbladder, Hysterectomy, Oophorectomy, Tonsillectomy Respiratory: No Cardiac: No Hypertension Neurological: Yes Headaches /Migraines, Vertigo Reproductive Disorders: No 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 Sexually Transmitted Disease: No HIV/AIDS: No Genitourinary: Yes (BLADDER SURGERY) Bladder Infection, UTI-Chronic Gastrointestinal: Yes Gastroesophageal Reflux, Diverticulosis, Polyps, Irritable Bowel Musculoskeletal: Yes (STENOSIS) Arthritis, Fibromyalgia Endocrine: No Cataract Loss of Vision: Bilateral Hearing Impairment: Denies Cancer: No Brain Psychosocial: Yes Anxiety, Bipolar, Depression Integumentary: No Blood Disorders: No Adverse Reaction/Blood Tranf: No (N/A) Family Medical History Alcoholism 19 FATHER Alzheimer's disease 19 MOTHER Arthritis 19 FATHER 19 MOTHER Cardiovascular disease 19 FATHER (massive heart attack) 19 MOTHER (Mitrial valve prolapse, Stroke Multi.) Cataracts G8 SISTER Completed stroke 19 MOTHER Deafness or hearing loss G8 SISTER Dementia 19 MOTHER Diabetes mellitus 19 MOTHER Fibrocystic disease of breast G8 SISTER Hypercholesterolemia 19 FATHER 19 MOTHER G8 BROTHER G8 SISTER G8 SISTER Osteoporosis G8 SISTER Seizure disorder 19 FATHER Severe allergy G8 BROTHER G8 SISTER Thyroid disease 19 MOTHER G8 BROTHER G8 SISTER G8 SISTER No Family History of: AIDS Abdominal aortic aneurysm Vitor's disease Aphasia Asthma Cancer of mouth Colon cancer Congenital disease Coronary thrombosis Cystic fibrosis Drug abuse Dysphasia Glaucoma Headache disorder Hypertension Infertility Kidney disease Not obtainable due to adoption Parkinson's disease Prostate cancer Psychosocial problem Respiratory disorder Tuberculosis No Pertinent Family Hx PSH: -CYSTOSCOPY/URETHRAL DILATION/RETROGRADE DYE TEST 02/02/[address] GARCIA IN [place] Physical Exam Vital Signs Vital Signs - First Documented 07/06/20 13:34 Temp 36.6 Pulse 87 Resp 18 B/P (MAP) 150/82 (104) Pulse Ox 100 Capillary Refill : Less Than 3 Seconds Height, Weight, BMI Height: 5'4.00" Weight: 165lbs. 0.0oz. [id number]; 176.00 BMI Method:Stated General Appearance: WD/WN, no apparent distress HEENT: normal ENT inspection, pharynx normal Neck: normal inspection Cardiovascular: regular rate, rhythm, no edema, no murmur Respiratory: lungs clear, normal breath sounds, no respiratory distress Gastrointestinal: normal bowel sounds, soft Back: normal inspection Hips: right hip non-tender, right hip normal inspection, right hip normal range of motion, right hip no evidence of injury, right hip other (No pain with rotation) Legs: right leg normal inspection, right leg normal range of motion, right leg no evidence of injury, right leg other (Tenderness over the lateral distal aspect of the quadricep muscle group. Muscle tension noted here as well. There is pain with flexion at the knee to stretch the quadricep muscle.) Knees: right knee non-tender, right knee normal inspection, right knee normal range of motion, right knee no evidence of injury, right knee other (Specifically, there is no tenderness posterior to the knee to suggest Engel's cyst) Ankles: right ankle non-tender, right ankle normal inspection, right ankle normal range of motion, right ankle no evidence of injury Feet: right foot non-tender, right foot normal inspection, right foot normal range of motion, right foot no evidence of injury, right foot other (Normal dorsal pedal pulse and capillary refill. Sensation intact) Neurologic/Tendon: normal sensation, normal motor functions, normal tendon functions Neurologic/Psychiatric: major gifts director II-XII nml as tested, no motor/sensory deficits, alert, normal mood/affect, oriented x 3 Skin: normal color, warm/dry Progress/Results/Core Measures Results/Orders Vital Signs/I&O 07/06/20 07/06/20 13:34 15:03 Temp 36.6 Pulse 87 81 Resp 18 20 B/P (MAP) 150/82 (104) 157/86 Pulse Ox 100 100 Blood Pressure Mean: 104 Progress Progress Note : Progress Note Examination of the thigh is most consistent with a strained or contused muscle quadriceps. I discussed with patient how to treat accordingly.No imaging was felt necessary at this time. Departure Impression Primary Impression: Strain of right quadriceps muscle Qualified Codes: S76.111A - Strain of right quadriceps muscle, fascia and tendon, initial encounter Disposition: 01 HOME, SELF-CARE Condition: Improved Departure-Patient Inst. Decision time for Depature: 14:54 Referrals: CARISSA ASHER MD (PCP/Family) Primary Care Physician Patient Instructions: Muscle Strain Add. Discharge Instructions: Your pain seems to be concentrated in one of the muscles of the right quadriceps. This may be due to strain, cramping, or inflammation. Gentle stretching 3 or 4 times a day should be helpful in relaxing that muscle. Gentle heat may also be helpful. You may safely use Tylenol (acetaminophen) up to 1000 mg every 6 hours as needed. You may add naproxen (Aleve) up to 500 mg twice a day for additional pain relief or Ultram (tramadol) as prescribed for additional pain relief. Follow-up with your primary care provider in 1 to 2 weeks if not improving. Discussed your pain with the painting technician as well. Call with any questions or concerns. Return to the ER if you have worsening symptoms despite following these instructions. All discharge instructions reviewed with patient and/or family. Voiced understanding. Copy Copies To 1: CARISSA ASHER MD, JOSHUA T MD Jul 06, 2020 14:57
[2020-07-06 15:03] VITALS: BP 157/86
== END 2020-07-06 15:03 | disposition home or self-care (01) ==
LOC: EDUNIT# 13:26 → ER 13:28
DX: S76.111A Strain of right quadriceps muscle, fascia and tendon, initial encounter (principal); K21.9 Gastro-esophageal reflux disease without esophagitis; F31.9 Bipolar disorder, unspecified; F41.9 Anxiety disorder, unspecified; G43.909 Migraine, unspecified, not intractable, without status migrainosus; Z91.041 Radiographic dye allergy status; Z88.5 Allergy status to narcotic agent; Z85.841 Personal history of malignant neoplasm of brain; Z82.61 Family history of arthritis; Z82.49 Family history of ischemic heart disease and other diseases of the circulatory system; Z83.3 Family history of diabetes mellitus; X58.XXXA Exposure to other specified factors, initial encounter
CPT/HCPCS: 99283

== ENCOUNTER → 2020-11-19 | Outpatient (CLI) | payer MEDICARE, MEDICAID ==
[~2020-11-19] MED LIST changes: -AMIT10TA6 PO; +AMT10T PO; +CALC600T91 PO; -CIPR500T4 PO; +CIPR500T5 PO; -CLC600T PO; -CYAN50008 PO; +CYAN50009 PO; +MONT10TA32 PO; -MONT10TA97 PO
--- NOTE | 2020-11-19 13:45 | Diagnostic Imaging Report ---
INDICATION: Routine screening. Comparison is made prior mammogram 11/12/2019 and 10/29/2018. 2-D and 3-D bilateral screening mammography was performed with CAD. Scattered fibroglandular densities are identified bilaterally. The parenchymal pattern is stable. No spiculated mass or malignant appearing microcalcifications are seen. The axillae are unremarkable. IMPRESSION: BI-RADS Category 1 No mammographic features suspicious for malignancy are identified. ACR BI-RADS Category 1: Negative. Result letter will be mailed to the patient. Note: At least 10% of breast cancer is not imaged by mammography. Dictated by: Dictated on workstation # [id number]
== END ==
LOC: RAD 11:30
PROVIDERS: ATTEND Nurse Practitioner Family
DX: Z12.31 Encounter for screening mammogram for malignant neoplasm of breast (principal)
CPT/HCPCS: 77063; 77067

== ENCOUNTER → 2020-11-19 | Outpatient (CLI) | payer MEDICARE, MEDICAID ==
--- NOTE | 2020-11-19 12:58 | Diagnostic Imaging Report ---
EXAMINATION: CT Lung Screening. INDICATION:45 pack-year smoking history. TECHNIQUE: Noncontrast, low-dose CT imaging performed according to the lung cancer screening protocol. Auto Exposure Controls were utilize during the CT exam to meet ALARA standards for radiation dose reduction. COMPARISON:11/13/2018 FINDINGS: The prior CT low-dose lung cancer screening exam performed on 11/13/2018 failed to show any sign of a suspicious nodule or mass. On this exam there is still no discrete mass to suggest malignancy. The lungs are generally clear. There is no sign of failure, pneumonia or of a pleural effusion. The heart size is within normal limits. There are no coronary artery calcifications identified with certainty. There is no sign of a pericardial effusion. The ascending aorta is prominent but not abnormally dilated. There is no obvious mediastinal or hilar adenopathy. The thyroid gland where visualized is unremarkable. There is no definite breast mass. The sections through the upper abdomen failed to show any sign of an acute abnormality. As noted previously the gallbladder is surgically absent. The bone windows failed to show any sign of an acute injury. However there does appear to have been further loss of height of the L1 vertebral body when compared to the previous CT low-dose lung cancer screening exam of 11/13/2018. The vertebral body height seems similar to the MRI thoracic spine exam performed on 06/03/2020. There is no acute bony abnormality noted. There has been a prior fusion of the lower cervical spine anteriorly. IMPRESSION: 1. There is still no evidence for a parenchymal lung mass. A follow-up low-dose lung cancer screening exam in one year would be recommended for continued evaluation. 2. There is no acute cardiopulmonary abnormality identified. 3. There has been further loss of height of the L1 vertebral body since the prior CT low-dose lung cancer screening exam. However the vertebral body seems stable when compared to the MRI thoracic spine exam of 06/03/2020. LUNG-RADS CATEGORY:1 MODIFIER: OTHER SIGNIFICANT FINDINGS: Dictated by: Dictated on workstation # [id number]
== END ==
LOC: RAD 11:39
PROVIDERS: ATTEND Nurse Practitioner Family
DX: Z12.2 Encounter for screening for malignant neoplasm of respiratory organs (principal); M51.36 Other intervertebral disc degeneration, lumbar region; F17.210 Nicotine dependence, cigarettes, uncomplicated
CPT/HCPCS: 71271

== ENCOUNTER 2020-11-29 11:07 | Emergency (ER) | payer MEDICARE, MEDICAID ==
[~2020-11-29] VITALS: Ht 160 cm; Wt 72.0 kg
[2020-11-29] MEDS ORDERED: ORPHENADRINE 60 MG/2 ML (NORFLEX) AMP (ED ONLY) IM ONE (12:45)
--- NOTE | 2020-11-29 12:46 | ED Back Pain ---
General Chief Complaint: Back Problems Stated Complaint: PAIN IN LOWER BACK Nursing Triage Note: ARRIVED VIA WC WITH COMPLAINTS OF CHRONIC LOWER BACK PAIN THAT RADIATES DOWN RIGHT LEG. Nursing Sepsis Screen: No Definite Risk Source of Information: Patient Exam Limitations: No Limitations History of Present Illness Date Seen by Provider: Nov 29, 2020 Time Seen by Provider: 12:30 Initial Comments This is a well-appearing 64-year-old female who presents to the ER with complaints of chronic low back pain. States that approximately 1 month ago her left lower back began to hurt and she has followed up with Dr. Will at [facility]. States that she received a steroid injection which did not seem to improve her symptoms. She has been taking Neurontin 300 mg at bedtime and an anti-inflammatory twice a day. However she continues to report stabbing pain that "is ripping across her buttock into her hip". Denies bowel or bladder incontinence. Denies fever, chills, cough, shortness of breath, nausea, vomiting, abdominal pain. Allergies and Home Medications Allergies Coded Allergies: iodine (Verified Allergy, Severe, HIVES, 05/24/19) morphine (Verified Allergy, Severe, HIVES, 05/24/19) hydrocodone (Verified Allergy, Intermediate, Itching, 05/24/19) oxycodone (Verified Allergy, Intermediate, Itching, 05/24/19) Home Medications Baclofen 20 Mg Tablet, 20 MG PO BID PRN for MUSCLE SPASMS, (Reported) Bupropion HCl 300 Mg Tab.er.24h, 300 MG PO DAILY, (Reported) C,E,Zinc,Copper 11/Alxwo9d/Lut 1 Each Capsule, 1 EACH PO DAILY, (Reported) Calcium Carbonate 600 Mg Tablet, 1,200 MG PO DAILY, (Reported) Cholecalciferol (Vitamin D3) 1,000 Unit Tablet, 3,000 UNIT PO DAILY, (Reported) Ciprofloxacin HCl 500 Mg Tablet, 500 MG PO BID Prescribed by: GREG SNOW on 11/27/19 1200 Dicyclomine HCl 20 Mg Tablet, 20 MG PO TID, (Reported) Divalproex Sodium 500 Mg Tab.er.24h, 1,000 MG PO HS, (Reported) TAKES 2 (500MG) TABS AT BEDTIME Estradiol 2 Mg Tablet, 2 MG PO DAILY, (Reported) Estradiol 10 Mcg Tablet, 10 MCG VG MoFr, (Reported) Gabapentin 300 Mg Capsule, 300 MG PO BID, (Reported) Hydroxyzine HCl 10 Mg Tablet, 10 MG PO TID PRN for ANXIETY, (Reported) Ibuprofen 600 Mg Tablet, 600 MG PO Q6H PRN for PAIN-MILD, (Reported) Daisyacidoph & Paracasei,B.lactis 1 Each Capsule, 1 EACH PO DAILY, (Reported) Levocetirizine Dihydrochloride 5 Mg Tablet, 5 MG PO HS, (Reported) Levomilnacipran Hydrochloride 120 Mg Cap.sa.24h, 120 MG PO DAILY, (Reported) Methocarbamol 750 Mg Tablet, 750 MG PO Q6-8HR Prescribed by: AMOS VAZQUEZ on 11/29/20 1402 Mometasone Furoate 17 Gm [place].pump, 1 SPRAY NSEACH DAILY, (Reported) Multivitamins-Min/FA/Ginkgo 1 Each Tablet, 1 EACH PO DAILY, (Reported) Pantoprazole Sodium 40 Mg Tablet.dr, 40 MG PO DAILY, (Reported) Phenazopyridine HCl 100 Mg Tablet, 100 MG PO Q8H PRN for SPASMS Prescribed by: GREG SNOW on 11/27/19 1237 Polyethylene Glycol 3350 17 Gm Powd.pack, 17 GM PO PRN, (Reported) Selenomethionine 200 Mcg Tablet, 200 MCG PO DAILY, (Reported) Simethicone 125 Mg Tab.chew, 125 MG PO PRN PRN for GAS, (Reported) Tramadol HCl 50 Mg Tablet, 50 MG PO Q6H PRN for PAIN-MILD (1-4), (Reported) Patient Home Medication List Home Medication List Reviewed: Yes Review of Systems Constitutional: no symptoms reported EENTM: no symptoms reported Respiratory: no symptoms reported Cardiovascular: no symptoms reported Gastrointestinal: no symptoms reported Genitourinary: no symptoms reported Musculoskeletal: see HPI Skin: no symptoms reported Psychiatric/Neurological: No Symptoms Reported Past Lwlsbez-Eniftd-Wlrhgi Hx Patient Social History Alcohol Use: Denies Use Smoking Status: Current Everyday Smoker Type Used: Cigarettes 2nd Hand Smoke Exposure: No Recent Infectious Disease Expo: No Recent Hopitalizations: No Immunizations Up To Date Tetanus Booster (TDap): More than 5yrs PED Vaccines UTD: No Date of Pneumonia Vaccine: Apr 23, 2018 Date of Influenza Vaccine: Mar 19, 2019 Seasonal Allergies Seasonal Allergies: Yes Past Medical History Surgeries: Yes (neck fusion, bladder tie up, ovarian cystectomy, cystocele/rectocele ) Adenoidectomy, Appendectomy, Bladder Surgery, Eye Surgery, Gallbladder, Hysterectomy, Oophorectomy, Tonsillectomy Respiratory: No Cardiac: No Hypertension Neurological: Yes Headaches /Migraines, Vertigo Reproductive Disorders: No 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 Transmitted Disease: No HIV/AIDS: No Genitourinary: Yes (BLADDER SURGERY) Bladder Infection, UTI-Chronic Gastrointestinal: Yes Gastroesophageal Reflux, Diverticulosis, Polyps, Irritable Bowel Musculoskeletal: Yes (STENOSIS) Arthritis, Fibromyalgia Endocrine: No Cataract Loss of Vision: Bilateral Hearing Impairment: Denies Cancer: No Brain Psychosocial: Yes Anxiety, Bipolar, Depression Integumentary: No Blood Disorders: No Adverse Reaction/Blood Tranf: No (N/A) Family Medical History Alcoholism 19 FATHER Alzheimer's disease 19 MOTHER Arthritis 19 FATHER 19 MOTHER Cardiovascular disease 19 FATHER (massive heart attack) 19 MOTHER (Mitrial valve prolapse, Stroke Multi.) Cataracts G8 SISTER Completed stroke 19 MOTHER Deafness or hearing loss G8 SISTER Dementia 19 MOTHER Diabetes mellitus 19 MOTHER Fibrocystic disease of breast G8 SISTER Hypercholesterolemia 19 FATHER 19 MOTHER G8 BROTHER G8 SISTER G8 SISTER Osteoporosis G8 SISTER Seizure disorder 19 FATHER Severe allergy G8 BROTHER G8 SISTER Thyroid disease 19 MOTHER G8 BROTHER G8 SISTER G8 SISTER No Family History of: AIDS Abdominal aortic aneurysm Lynbrook's disease Aphasia Asthma Cancer of mouth Colon cancer Congenital disease Coronary thrombosis Cystic fibrosis Drug abuse Dysphasia Glaucoma Headache disorder Hypertension Infertility Kidney disease Not obtainable due to adoption Parkinson's disease Prostate cancer Psychosocial problem Respiratory disorder Tuberculosis No Pertinent Family Hx PSH: -CYSTOSCOPY/URETHRAL DILATION/RETROGRADE DYE TEST 02/02/[address] GARCIA IN [place] Physical Exam Vital Signs Vital Signs - First Documented 11/29/20 11:15 Temp 36.0 Pulse 83 Resp 16 B/P (MAP) 144/85 (104) Pulse Ox 98 O2 Delivery Room Air Capillary Refill : Less Than 3 Seconds Height, Weight, BMI Height: 5'4.00" Weight: 165lbs. 0.0oz. [id number]; 28.00 BMI Method:Stated General Appearance: No Apparent Distress, WD/WN HEENT: PERRL/EOMI, Normal ENT Inspection, Pharynx Normal, Moist Mucous Membranes Neck: Normal Inspection, Supple Cardiovascular: Regular Rate, Rhythm, No Edema, Normal Peripheral Pulses Respiratory: Lungs Clear, Normal Breath Sounds, No Accessory Muscle Use Peripheral Pulses: 2+ Dorsalis Pedis (R), 2+ Left Dors-Pedis (L) Gastrointestinal: Normal Bowel Sounds, Non Tender, Soft Back: Normal Inspection, No Vertebral Tenderness, Other (muscle tenderness along right SI joint down into hip.) Extremity: Normal Inspection, Normal Range of Motion, Non Tender Neurologic/Psychiatric: Alert, Oriented x3, No Motor/Sensory Deficits, Normal Mood/Affect Skin: Normal Color, Warm/Dry Progress/Results/Core Measures Results/Orders My Orders Orders - AMOS VAZQUEZ SAP TECHNICAL ARCHITECT Orphenadrine Inj (Ed Only) (Norflex Inje (11/29/20 12:45) Medications Given in ED Vital Signs/I&O 11/29/20 11/29/20 11:15 14:05 Temp 36.0 36.0 Pulse 83 83 Resp 16 16 B/P (MAP) 144/85 (104) 144/85 (104) Pulse Ox 98 98 O2 Delivery Room Air Blood Pressure Mean: 104 Progress Progress Note : Progress Note Patient examined and in no acute distress. States that she recently had an injection in her left hip and right hip over the past couple weeks by her primary care provider. Has had multiple steroid injections into her back in the past. States that she does not feel that these help. Has tried Flexeril in the past but states that this does not help either. She has an MRI scheduled for Sunday with follow-up with Dr. Will. States that she would not mind trying a Norflex injection. Her pain is reproducible along her right SI joint into her right lateral gluteal region. Has no midline tenderness. There is no obvious swelling, redness, or bruising. She received Norflex 60 mg IM. States that this seemed to help a little bit however her pain is still present whenever she moves. Discussed trying a different muscle relaxer such as Robaxin and steroids. She is agreeable to try Robaxin, states that she does not feel the steroids will help. Reinforced the importance of keeping her appointment for her MRI and having close follow-up with her spinal surgeon. She verbalized understanding. Reviewed discharge plan of care and she is agreeable with plan. Departure Impression Primary Impression: Chronic back pain Disposition: HOME, SELF-CARE Condition: Improved Departure-Patient Inst. Decision time for Depature: 13:57 Referrals: CARISSA ASHER MD (PCP/Family) Primary Care Physician Patient Instructions: MANAGING YOUR CHRONIC PAIN Add. Discharge Instructions: Plan: 1. Follow up with Dr. Pelayo as previously directed. 2. Keep your appointment for your MRI of your back next Sunday as previously scheduled. 3. Use heat/ice 20 minutes at a time 4-6x per day. 4. Use muscle relaxer as directed. 5. Return for any new, concerning, or worsening symptoms. All discharge instructions reviewed with patient and/or family. Voiced understanding. Scripts Methocarbamol (Methocarbamol) 750 Mg Tablet 750 MG PO Q6-8HR for Back Pain for 5 Days, #20 TAB 0 Refills Prov: AMOS VAZQUEZ SAP TECHNICAL ARCHITECT 11/29/20 AMOS VAZQUEZ SAP TECHNICAL ARCHITECT Nov 29, 2020 12:46
[2020-11-29] MEDS ORDERED: METH-732 PO (14:02)
[2020-11-29 14:05] VITALS: BP 144/85
== END 2020-11-29 14:05 | disposition home or self-care (01) ==
LOC: EDUNIT# 11:07 → ER 11:10
DX: G89.29 Other chronic pain (principal); M54.5 Low back pain; I10 Essential (primary) hypertension; F41.9 Anxiety disorder, unspecified; F31.9 Bipolar disorder, unspecified; K21.9 Gastro-esophageal reflux disease without esophagitis; F17.210 Nicotine dependence, cigarettes, uncomplicated; Z88.5 Allergy status to narcotic agent; Z79.899 Other long term (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
CPT/HCPCS: 99284

== ENCOUNTER 2020-12-03 07:20 | Emergency (ER) | payer MEDICARE, MEDICAID ==
[~2020-12-03] VITALS: Ht 160 cm; Wt 72.7 kg
[~2020-12-03 07:20] MED LIST changes: +DICL100G13 TP; -DICL100G31 TP; +METH-732 PO
[2020-12-03 07:54] LABS: BILIRUBIN,URINE NEGATIVE (NEGATIVE); CLARITY,URINE CLEAR; COLOR,URINE YELLOW; GLUCOSE, URINE (UA) NEGATIVE (NEGATIVE); KETONES,URINE NEGATIVE (NEGATIVE); LEUKOCYTE ESTERASE ,URINE 2+ (NEGATIVE); NITRITE,URINE NEGATIVE (NEGATIVE); PH,URINE 7.5 (5-9); PROTEIN,URINE NEGATIVE (NEGATIVE)
[2020-12-03] MEDS ORDERED: ORPHENADRINE 60 MG/2 ML (NORFLEX) AMP (ED ONLY) IV ONE (08:00)
[2020-12-03] MEDS ORDERED: KETOROLAC 30 MG/ML VIAL IVP ONE (08:00)
[2020-12-03 08:28] LABS: BACTERIA,URINE MODERATE /HPF; RBC,URINE RARE /HPF
[2020-12-03] MEDS ORDERED: LORazepam INJ 2 MG/ML (ATIVAN) VIAL IVP ONE (08:45)
--- NOTE | 2020-12-03 09:45 | Diagnostic Imaging Report ---
PROCEDURE: MRI lumbar spine. TECHNIQUE: Multiplanar, multisequence MRI of the lumbar spine was performed without contrast. INDICATION: Low back pain and urinary incontinence. COMPARISON: Thoracic spine MRI from 06/03/2020. FINDINGS: Chronic superior endplate fracture of L1 is stable in appearance since 06/03/2020. In the superior endplate of L2, there is some new height loss with mild irregularity of posterior endplate indicative of an acute fracture. There is no edema extending into the posterior elements. The remainder of the lumbar spine vertebrae are intact. No sacral insufficiency fracture. Rim calcified lesion in the S2 vertebral body is nonaggressive and likely benign fibro-osseous lesion. L1-L2: Disc bulge and facet osteoarthritis resulting in mild spinal stenosis and moderate to severe bilateral foraminal narrowing. L2-L3: Disc bulging with facet osteoarthritis is asymmetric to left resulting in moderate narrowing of the left lateral recess. Overall there is mild spinal stenosis. Moderate severe left and mild right foraminal narrowing. L3-L4: Facet osteoarthritis and disc bulging causes mild spinal stenosis but no mass effect in the lateral recess. No foraminal narrowing. L4-L5: Facet osteoarthritis and disc bulging. There is mild bilateral foraminal narrowing but no spinal stenosis. L5-S1: No spinal canal or foraminal narrowing. Moderate facet osteoarthritis. IMPRESSION: 1. Acute fracture of the superior endplate of L2 does disrupt the posterior wall of the vertebral body but there is no retropulsed ossific fragments. There is less than 25% height loss at the central aspect of the L2 vertebral body. 2. Chronic superior endplate compression fracture of L1. 3. No severe spinal stenosis. There is moderate narrowing of the left lateral recess and mild spinal stenosis at L1-L2 and L2-L3. 4. Distal thoracic cord is normal in appearance. Dictated by: Dictated on workstation # [id number]
--- NOTE | 2020-12-03 10:25 | ED Back Pain ---
General Chief Complaint: Back Problems Stated Complaint: BACK PAIN Nursing Triage Note: TO ROOM PER EMS FROM HOME HAS HAD BACK PROBLEM FOR 1 1/[address] AT [facility]. IS TO HAVE MRI ON SUNDAY AT [facility] FOR THE PAST 5 WEEKS PAIN HAS GOT WORSE. TODAY BACK PAIN HURTING SO BAD SHE COULD NOT GET OUT OF BED. WAS SEEN IN ED ON SUN FOR PAIN. Nursing Sepsis Screen: No Definite Risk Source of Information: Patient Exam Limitations: No Limitations History of Present Illness Date Seen by Provider: Dec 03, 2020 Time Seen by Provider: 07:32 Initial Comments This 64-year-old woman presents to the emergency room with complaints of worsening lower back pain in recent days. This has been accompanied by some loss of urinary continence and some pain and possible weakness in the right lower extremity. She was recently seen by Dr. Will at [facility] in [facility]. She has a pending MRI ordered. Symptoms became too severe for her to wait. She takes NSAID medications and muscle relaxers for her pain but that seemed insufficient. Allergies and Home Medications Allergies Coded Allergies: iodine (Verified Allergy, Severe, HIVES, 05/24/19) morphine (Verified Allergy, Severe, HIVES, 05/24/19) hydrocodone (Verified Allergy, Intermediate, Itching, 05/24/19) Home Medications Baclofen 20 Mg Tablet, 20 MG PO BID PRN for MUSCLE SPASMS, (Reported) Bupropion HCl 300 Mg Tab.er.24h, 300 MG PO DAILY, (Reported) C,E,Zinc,Copper 11/Ocxuh2b/Lut 1 Each Capsule, 1 EACH PO DAILY, (Reported) Calcium Carbonate 600 Mg Tablet, 1,200 MG PO DAILY, (Reported) Cephalexin 500 Mg Tablet, 500 MG PO TID Prescribed by: THO CASTRO on 12/03/20 1028 Cholecalciferol (Vitamin D3) 1,000 Unit Tablet, 3,000 UNIT PO DAILY, (Reported) Ciprofloxacin HCl 500 Mg Tablet, 500 MG PO BID Prescribed by: GREG SNOW on 11/27/19 1200 Dicyclomine HCl 20 Mg Tablet, 20 MG PO TID, (Reported) Divalproex Sodium 500 Mg Tab.er.24h, 1,000 MG PO HS, (Reported) TAKES 2 (500MG) TABS AT BEDTIME Docusate Sodium 100 Mg Capsule, 100 MG PO DAILY Prescribed by: THO CASTRO on 12/03/20 1028 Estradiol 2 Mg Tablet, 2 MG PO DAILY, (Reported) Estradiol 10 Mcg Tablet, 10 MCG VG MoFr, (Reported) Gabapentin 300 Mg Capsule, 300 MG PO BID, (Reported) Hydroxyzine HCl 10 Mg Tablet, 10 MG PO TID PRN for ANXIETY, (Reported) Ibuprofen 600 Mg Tablet, 600 MG PO Q6H PRN for PAIN-MILD, (Reported) Daisyacidoph & Paracasei,B.lactis 1 Each Capsule, 1 EACH PO DAILY, (Reported) Levocetirizine Dihydrochloride 5 Mg Tablet, 5 MG PO HS, (Reported) Levomilnacipran Hydrochloride 120 Mg Cap.sa.24h, 120 MG PO DAILY, (Reported) Methocarbamol 750 Mg Tablet, 750 MG PO Q6-8HR Prescribed by: AMOS VAZQUEZ on 11/29/20 1402 Mometasone Furoate 17 Gm [place].pump, 1 SPRAY NSEACH DAILY, (Reported) Multivitamins-Min/FA/Ginkgo 1 Each Tablet, 1 EACH PO DAILY, (Reported) Oxycodone HCl/Acetaminophen 1 Each Tablet, 1 TAB PO Q4H Prescribed by: THO CASTRO on 12/03/20 1029 Pantoprazole Sodium 40 Mg Tablet.dr, 40 MG PO DAILY, (Reported) Phenazopyridine HCl 100 Mg Tablet, 100 MG PO Q8H PRN for SPASMS Prescribed by: GREG SNOW on 11/27/19 1237 Polyethylene Glycol 3350 17 Gm Powd.pack, 17 GM PO PRN, (Reported) Selenomethionine 200 Mcg Tablet, 200 MCG PO DAILY, (Reported) Simethicone 125 Mg Tab.chew, 125 MG PO PRN PRN for GAS, (Reported) Tramadol HCl 50 Mg Tablet, 50 MG PO Q6H PRN for PAIN-MILD (1-4), (Reported) Patient Home Medication List Home Medication List Reviewed: Yes Review of Systems Constitutional: no symptoms reported EENTM: no symptoms reported Respiratory: no symptoms reported Cardiovascular: no symptoms reported Gastrointestinal: no symptoms reported Genitourinary: see HPI : No Musculoskeletal: see HPI Skin: no symptoms reported Psychiatric/Neurological: See HPI Past Bsqzhaz-Zogmyr-Vxpnod Hx Past Med/Social Hx: Reviewed Nursing Past Med/Soc Hx Patient Social History Alcohol Use: Denies Use Smoking Status: Current Everyday Smoker Type Used: Cigarettes 2nd Hand Smoke Exposure: No Recent Infectious Disease Expo: No Recent Hopitalizations: No Immunizations Up To Date Tetanus Booster (TDap): More than 5yrs PED Vaccines UTD: No Date of Pneumonia Vaccine: Apr 23, 2018 Date of Influenza Vaccine: Mar 19, 2019 Seasonal Allergies Seasonal Allergies: Yes Past Medical History Surgeries: Yes (neck fusion, bladder tie up, ovarian cystectomy, cystocele/rectocele ) Adenoidectomy, Appendectomy, Bladder Surgery, Eye Surgery, Gallbladder, Hysterectomy, Oophorectomy, Tonsillectomy Respiratory: No Cardiac: No Hypertension Neurological: Yes Headaches /Migraines, Vertigo Reproductive Disorders: No 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 Sexually Transmitted Disease: No HIV/AIDS: No Genitourinary: Yes (BLADDER SURGERY) Bladder Infection, UTI-Chronic Gastrointestinal: Yes Gastroesophageal Reflux, Diverticulosis, Polyps, Irritable Bowel Musculoskeletal: Yes (STENOSIS) Arthritis, Fibromyalgia, Chronic Back Pain Endocrine: No Cataract Loss of Vision: Bilateral Hearing Impairment: Denies Cancer: No Brain Psychosocial: Yes Anxiety, Bipolar, Depression Integumentary: No Blood Disorders: No Adverse Reaction/Blood Tranf: No (N/A) Family Medical History Alcoholism 19 FATHER Alzheimer's disease 19 MOTHER Arthritis 19 FATHER 19 MOTHER Cardiovascular disease 19 FATHER (massive heart attack) 19 MOTHER (Mitrial valve prolapse, Stroke Multi.) Cataracts G8 SISTER Completed stroke 19 MOTHER Deafness or hearing loss G8 SISTER Dementia 19 MOTHER Diabetes mellitus 19 MOTHER Fibrocystic disease of breast G8 SISTER Hypercholesterolemia 19 FATHER 19 MOTHER G8 BROTHER G8 SISTER G8 SISTER Osteoporosis G8 SISTER Seizure disorder 19 FATHER Severe allergy G8 BROTHER G8 SISTER Thyroid disease 19 MOTHER G8 BROTHER G8 SISTER G8 SISTER No Family History of: AIDS Abdominal aortic aneurysm [place]'s disease Aphasia Asthma Cancer of mouth Colon cancer Congenital disease Coronary thrombosis Cystic fibrosis Drug abuse Dysphasia Glaucoma Headache disorder Hypertension Infertility Kidney disease Not obtainable due to adoption Parkinson's disease Prostate cancer Psychosocial problem Respiratory disorder Tuberculosis No Pertinent Family Hx PSH: -CYSTOSCOPY/URETHRAL DILATION/RETROGRADE DYE TEST 02/02/[address] GARCIA IN [place] Physical Exam Vital Signs Vital Signs - First Documented 12/03/20 07:20 Temp 36.3 Pulse 78 Resp 18 B/P (MAP) 147/71 (96) Pulse Ox 96 O2 Delivery Room Air Capillary Refill : Less Than 3 Seconds Height, Weight, BMI Height: 5'4.00" Weight: 165lbs. 0.0oz. 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 She has generalized reduced range of motion secondary to pain.) Skin: Normal Color, Warm/Dry Progress/Results/Core Measures Results/Orders Lab Results Laboratory Tests Test 12/03/20 07:46 Range/Units Urine Color YELLOW Urine Clarity CLEAR Urine pH 7.5 5-9 Urine Specific Busy 1.015 L 1.016-1.022 Urine Protein NEGATIVE NEGATIVE Urine Glucose (UA) NEGATIVE NEGATIVE Urine Ketones NEGATIVE NEGATIVE Urine Nitrite NEGATIVE NEGATIVE Urine Bilirubin NEGATIVE NEGATIVE Urine Urobilinogen 0.2 < = 1.0 MG/DL Urine Leukocyte Esterase 2+ H NEGATIVE Urine RBC (Auto) TRACE-I NEGATIVE Urine RBC RARE /HPF Urine WBC 10-25 H /HPF Urine Squamous Epithelial Cells 5-10 /HPF Urine Crystals NONE /LPF Urine Bacteria MODERATE H /HPF Urine Casts NONE /LPF Urine Mucus NEGATIVE /LPF Urine Culture Indicated YES My Orders Orders - THO MORALES MD Ua Culture If Indicated (12/03/20 07:46) Ed Iv/Invasive Line Start (12/03/20 07:46) Ketorolac Injection (Toradol Injection) (12/03/20 08:00) Orphenadrine Inj (Ed Only) (Norflex Inje (12/03/20 08:00) Mri Lumbar Spine W/O Contrast (12/03/20 07:53) Urine Culture (12/03/20 07:46) Lorazepam Injection (Ativan Injection) (12/03/20 08:45) Oxycodone/Apap 5/325mg Tablet (Percocet (12/03/20 10:45) Oxycodone/Apap 5/325mg Tablet (Percocet (12/03/20 11:30) Medications Given in ED Current Medications Medications Dose Ordered Sig/Jeff Route Start Time Stop Time Status Last Admin Dose Admin Lorazepam 0.5 mg ONCE ONCE IVP 12/03/20 08:45 12/03/20 08:46 DC 12/03/20 08:42 0.5 MG Oxycodone/ Acetaminophen 1 tab ONCE ONCE PO 12/03/20 10:45 12/03/20 10:46 DC 12/03/20 10:50 1 TAB Oxycodone/ Acetaminophen 1 tab ONCE ONCE PO 12/03/20 11:30 12/03/20 11:31 DC 12/03/20 11:35 1 TAB Vital Signs/I&O 12/03/20 12/03/20 07:20 13:30 Temp 36.3 Pulse 78 80 Resp 18 18 B/P (MAP) 147/71 (96) 149/91 Pulse Ox 96 95 O2 Delivery Room Air Room Air 2 Blood Pressure Mean: 96 Progress Progress Note #1: Time: 11:20 Progress Note Patient was initially given Toradol and Norflex for acute pain management. This was followed later by Percocet. MRI was obtained showing a compression fracture of T2 as well as other chronic abnormalities including neuroforaminal stenoses. I communicated these results to Dr. Will's office. Have not received a call back from them yet at this point. Patient was discharged with instructions to follow-up with the spine clinic as soon as possible. However, when she got out to the [facility], she stated she would not be able to function at home in her current state and had no help at home to support her. Unfortunately, this hospital and the hospitals in [facility] are all on admission diversion. We are having social work come down to visit with the patient to see if there are alternatives. In the meantime I am giving her second Percocet tablet. Progress Note #2: Time: 11:46 Progress Note After reviewing the case with Dr. Schmidt, it was determined patient can be transferred to [facility] for supportive care through the weekend for intractable back pain and debility. I have contacted [facility] in [place] twice but they have not returned my calls. They did place a call to the patient and stated she had a referral appointment on Sunday. Progress Note #3: Time: 12:35 Progress Note I spoke with Dr. Will. Her office is working on improving kyphoplasty. She agrees with the admission for supportive care in the meantime. The factor that patient requires hospitalization for intractable pain that is 8 out of 10 or greater would support her need for intervention such as kyphoplasty. Diagnostic Imaging Diagonstic Imaging: MRI Plain Films/CT/US/NM/MRI: other (Lumbar spine) Comments NAME: CARMEN BUSTAMANTE MED REC#: [id number] PT STATUS: REG ER : 1955 PHYSICIAN: THO MORALES MD ADMIT DATE: 12/03/20/ER Draft Date of Exam:12/03/20 MRI LUMBAR SPINE W/O CONTRAST PROCEDURE: MRI lumbar spine. TECHNIQUE: Multiplanar, multisequence MRI of the lumbar spine was performed without contrast. INDICATION: Low back pain and urinary incontinence. COMPARISON: Thoracic spine MRI from 06/03/2020. FINDINGS: Chronic superior endplate fracture of L1 is stable in appearance since 06/03/2020. In the superior endplate of L2, there is some new height loss with mild irregularity of posterior endplate indicative of an acute fracture. There is no edema extending into the posterior elements. The remainder of the lumbar spine vertebrae are intact. No sacral insufficiency fracture. Rim calcified lesion in the S2 vertebral body is nonaggressive and likely benign fibro-osseous lesion. L1-L2: Disc bulge and facet osteoarthritis resulting in mild spinal stenosis and moderate to severe bilateral foraminal narrowing. L2-L3: Disc bulging with facet osteoarthritis is asymmetric to left resulting in moderate narrowing of the left lateral recess. Overall there is mild spinal stenosis. Moderate severe left and mild right foraminal narrowing. L3-L4: Facet osteoarthritis and disc bulging causes mild spinal stenosis but no mass effect in the lateral recess. No foraminal narrowing. L4-L5: Facet osteoarthritis and disc bulging. There is mild bilateral foraminal narrowing but no spinal stenosis. L5-S1: No spinal canal or foraminal narrowing. Moderate facet osteoarthritis. IMPRESSION: 1. Acute fracture of the superior endplate of L2 does disrupt the posterior wall of the vertebral body but there is no retropulsed ossific fragments. There is less than 25% height loss at the central aspect of the L2 vertebral body. 2. Chronic superior endplate compression fracture of L1. 3. No severe spinal stenosis. There is moderate narrowing of the left lateral recess and mild spinal stenosis at L1-L2 and L2-L3. 4. Distal thoracic cord is normal in appearance. Dictated on workstation # [id number] Dict: 12/03/20 0937 Trans: 12/03/20 0945 [id number] Interpreted by: FRANCISCO JAVIER WALLS MD Electronically signed by: Departure Impression Primary Impression: Compression fracture of L2 Qualified Codes: S32.020A - Wedge compression fracture of second lumbar vertebra, initial encounter for closed fracture Additional Impressions: Neuroforaminal stenosis of lumbosacral spine Low back pain Qualified Codes: M54.41 - Lumbago with sciatica, right side; G89.29 - Other chronic pain Lumbar radiculopathy Urinary tract infection Qualified Codes: N39.0 - Urinary tract infection, site not specified Debility Disposition: XFER SHT-TRM HOSP Condition: Stable Transfer Transfer Reason: Diversion Time Spoke to Accepting Phy: 11:30 Transfer Progress Notes Transfer accepted by Dr. Schmidt Transfer Time: 13:26 Transfer Facility: [facility] Method of Transfer: EMS Departure-Patient Inst. Referrals: CARISSA ASHER MD (PCP/Family) Primary Care Physician Patient Instructions: Vertebral Compression Fracture, Radiculopathy Add. Discharge Instructions: All discharge instructions reviewed with patient and/or family. Voiced understanding. Scripts Docusate Sodium (Colace) 100 Mg Capsule 100 MG PO DAILY, #30 CAP Prov: THO MORALES MD 12/03/20 Oxycodone HCl/Acetaminophen (Percocet 5-325 mg Tablet) 1 Each Tablet 1 TAB PO Q4H for PAIN-MODERATE MDD 6 TABS, #15 TAB Prov: THO MORALES MD 12/03/20 Cephalexin (Cephalexin) 500 Mg Tablet 500 MG PO TID, #21 TAB Prov: THO MORALES MD 12/03/20 Copy Copies To 1: CARISSA ASHER MD, JOSHUA T MD Dec 03, 2020 10:25
[2020-12-03] MEDS ORDERED: OXYC1TAB87 PO (10:28)
[2020-12-03] MEDS ORDERED: CEPH500T PO (10:28)
[2020-12-03] MEDS ORDERED: DOCU-143 PO (10:28)
[2020-12-03] MEDS ORDERED: oxyCODONE/APAP 5/325MG (PERCOCET 5) TABLET PO ONE ×2 (10:45→11:30)
[2020-12-03 13:30] VITALS: BP 149/91
== END 2020-12-03 13:26 | disposition short-term general hospital (02) ==
LOC: EDUNIT# 07:20 → ER 07:22
DX: S32.020A Wedge compression fracture of second lumbar vertebra, initial encounter for closed fracture (principal); M48.07 Spinal stenosis, lumbosacral region; M54.16 Radiculopathy, lumbar region; N39.0 Urinary tract infection, site not specified; R53.81 Other malaise; G43.909 Migraine, unspecified, not intractable, without status migrainosus; K21.9 Gastro-esophageal reflux disease without esophagitis; K58.9 Irritable bowel syndrome, unspecified; M79.7 Fibromyalgia; G89.29 Other chronic pain; F41.9 Anxiety disorder, unspecified; F31.9 Bipolar disorder, unspecified; F17.210 Nicotine dependence, cigarettes, uncomplicated; Z79.1 Long term (current) use of non-steroidal anti-inflammatories (NSAID); Z79.891 Long term (current) use of opiate analgesic; Z79.899 Other long term (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; Z88.5 Allergy status to narcotic agent; X58.XXXA Exposure to other specified factors, initial encounter
CPT/HCPCS: 72148; 81000; 87088; 96374; 96375

== ENCOUNTER 2021-01-17 15:43 | Emergency (ER) | payer MEDICARE, MEDICAID ==
[~2021-01-17] VITALS: Ht 160 cm; Wt 72.7 kg
[~2021-01-17 15:43] MED LIST changes: +CEPH500T PO; +DOCU-143 PO; +OXYC1TAB87 PO
[2021-01-17 15:59] VITALS: BP 172/83
[2021-01-17] MEDS ORDERED: OXYC1TAB11 PO (16:22)
--- NOTE | 2021-01-17 16:23 | ED Lower Extremity ---
General Chief Complaint: Lower Extremity Stated Complaint: LOWER BACK/L LEG PAIN Nursing Triage Note: INCREASING PAIN SINCE BACK SURGERY AT [place]. "IT STARTS IN MY LEFT HIP AND GOES DOWN THROUGH MY GROIN, LEG AND KNEE. Source: patient Exam Limitations: no limitations History of Present Illness Date Seen by Provider: Jan 17, 2021 Time Seen by Provider: 16:19 Initial Comments To ER with low back pain that radiates down the left leg no loss of bowel or bladder control no loss of sensation of her genitals no fevers or chills. She [facility] [address] [place] [address] for a L2 compression fracture last month. She is out of her oxycodone. She plans to follow-up with Dr. Nieves this Sunday. Onset: just prior to arrival Severity: moderate Pain/Injury Location: left leg Method of Injury: unknown Allergies and Home Medications Allergies Coded Allergies: iodine (Verified Allergy, Severe, HIVES, 05/24/19) morphine (Verified Allergy, Severe, HIVES, 05/24/19) hydrocodone (Verified Allergy, Intermediate, Itching, 05/24/19) Home Medications Baclofen 20 Mg Tablet, 20 MG PO BID PRN for MUSCLE SPASMS, (Reported) Bupropion HCl 300 Mg Tab.er.24h, 300 MG PO DAILY, (Reported) C,E,Zinc,Copper 11/Pjzis0j/Lut 1 Each Capsule, 1 EACH PO DAILY, (Reported) Calcium Carbonate 600 Mg Tablet, 1,200 MG PO DAILY, (Reported) Cephalexin 500 Mg Tablet, 500 MG PO TID Prescribed by: THO CASTRO on 12/03/20 1028 Cholecalciferol (Vitamin D3) 1,000 Unit Tablet, 3,000 UNIT PO DAILY, (Reported) Ciprofloxacin HCl 500 Mg Tablet, 500 MG PO BID Prescribed by: GREG SNOW on 11/27/19 1200 Dicyclomine HCl 20 Mg Tablet, 20 MG PO TID, (Reported) Divalproex Sodium 500 Mg Tab.er.24h, 1,000 MG PO HS, (Reported) TAKES 2 (500MG) TABS AT BEDTIME Docusate Sodium 100 Mg Capsule, 100 MG PO DAILY Prescribed by: THO CASTRO on 12/03/20 1028 Estradiol 2 Mg Tablet, 2 MG PO DAILY, (Reported) Estradiol 10 Mcg Tablet, 10 MCG VG MoFr, (Reported) Gabapentin 300 Mg Capsule, 300 MG PO BID, (Reported) Hydroxyzine HCl 10 Mg Tablet, 10 MG PO TID PRN for ANXIETY, (Reported) Ibuprofen 600 Mg Tablet, 600 MG PO Q6H PRN for PAIN-MILD, (Reported) LImeracidoph & Paracasei,B.lactis 1 Each Capsule, 1 EACH PO DAILY, (Reported) Levocetirizine Dihydrochloride 5 Mg Tablet, 5 MG PO HS, (Reported) Levomilnacipran Hydrochloride 120 Mg Cap.sa.24h, 120 MG PO DAILY, (Reported) Methocarbamol 750 Mg Tablet, 750 MG PO Q6-8HR Prescribed by: AMOS VAZQUEZ on 11/29/20 1402 Mometasone Furoate 17 Gm [place].pump, 1 SPRAY NSEACH DAILY, (Reported) Multivitamins-Min/FA/Ginkgo 1 Each Tablet, 1 EACH PO DAILY, (Reported) Oxycodone HCl/Acetaminophen 1 Each Tablet, 1 TAB PO Q4H Prescribed by: THO CASTRO on 12/03/20 1029 Pantoprazole Sodium 40 Mg Tablet.dr, 40 MG PO DAILY, (Reported) Phenazopyridine HCl 100 Mg Tablet, 100 MG PO Q8H PRN for SPASMS Prescribed by: GREG SNOW on 11/27/19 1237 Polyethylene Glycol 3350 17 Gm [place].pack, 17 GM PO PRN, (Reported) Selenomethionine 200 Mcg Tablet, 200 MCG PO DAILY, (Reported) Simethicone 125 Mg Tab.chew, 125 MG PO PRN PRN for GAS, (Reported) Tramadol HCl 50 Mg Tablet, 50 MG PO Q6H PRN for PAIN-MILD (1-4), (Reported) Patient Home Medication List Home Medication List Reviewed: Yes Review of Systems Constitutional: see HPI EENTM: see HPI Respiratory: no symptoms reported Cardiovascular: no symptoms reported Genitourinary: no symptoms reported Musculoskeletal: see HPI Skin: no symptoms reported Psychiatric/Neurological: No Symptoms Reported Past Ryxcfmh-Vticpj-Rdmgqe Hx Patient Social History Tobacco type used: Cigarettes Smoking Status: Current Everyday Smoker Substance use?: No Alcohol Use?: No Pt feels they are or have been: No Immunizations Up To Date Tetanus Booster (TDap): More than 5yrs PED Vaccines UTD: No Influenza Vaccine Up-to-Date: Yes; Up-to-Date First/Initial COVID19 Vaccinat: 08/19/20 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: [place] Seasonal Allergies Seasonal Allergies: Yes Past Medical History Surgeries: Yes (neck fusion, bladder tie up, ovarian cystectomy, cystocele/rectocele ) Adenoidectomy, Appendectomy, Bladder Surgery, Eye Surgery, Gallbladder, Hysterectomy, Oophorectomy, Tonsillectomy Respiratory: No Cardiac: No Hypertension Neurological: Yes Headaches /Migraines, Vertigo Reproductive Disorders: No Female Reproductive Disorders: Ovarian 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 Sexually Transmitted Disease: No HIV/AIDS: No Genitourinary: Yes (BLADDER SURGERY) Bladder Infection, UTI-Chronic Gastrointestinal: Yes Gastroesophageal Reflux, Diverticulosis, Polyps, Irritable Bowel Musculoskeletal: Yes (STENOSIS) Arthritis, Fibromyalgia, Chronic Back Pain Endocrine: No Cataract Loss of Vision: Bilateral Hearing Impairment: Denies Cancer: No Brain Psychosocial: Yes Anxiety, Bipolar, Depression Integumentary: No Blood Disorders: No Adverse Reaction/Blood Tranf: No (N/A) Family Medical History Alcoholism 19 FATHER Alzheimer's disease 19 MOTHER Arthritis 19 FATHER 19 MOTHER Cardiovascular disease 19 FATHER (massive heart attack) 19 MOTHER (Mitrial valve prolapse, Stroke Multi.) Cataracts G8 SISTER Completed stroke 19 MOTHER Deafness or hearing loss G8 SISTER Dementia 19 MOTHER Diabetes mellitus 19 MOTHER Fibrocystic disease of breast G8 SISTER Hypercholesterolemia 19 FATHER 19 MOTHER G8 BROTHER G8 SISTER G8 SISTER Osteoporosis G8 SISTER Seizure disorder 19 FATHER Severe allergy G8 BROTHER G8 SISTER Thyroid disease 19 MOTHER G8 BROTHER G8 SISTER G8 SISTER No Family History of: AIDS Abdominal aortic aneurysm [place]'s disease Aphasia Asthma Cancer of mouth Colon cancer Congenital disease Coronary thrombosis Cystic fibrosis Drug abuse Dysphasia Glaucoma Headache disorder Hypertension Infertility Kidney disease Not obtainable due to adoption Parkinson's disease Prostate cancer Psychosocial problem Respiratory disorder Tuberculosis No Pertinent Family Hx PSH: -CYSTOSCOPY/URETHRAL DILATION/RETROGRADE DYE TEST 02/02/[address] GARCIA IN [place] Physical Exam Vital Signs Vital Signs - First Documented 01/17/21 15:59 Temp 36.5 Pulse 91 Resp 18 B/P (MAP) 172/83 (112) Pulse Ox 97 Capillary Refill : Height, Weight, BMI Height: 5'4.00" Weight: 165lbs. 0.0oz. 74.912192px; 28.00 BMI Method:Stated General Appearance: WD/WN, no apparent distress HEENT: PERRL/EOMI, normal ENT inspection Neck: non-tender, full range of motion Respiratory: no respiratory distress, no accessory muscle use Hips: bilateral hip non-tender, bilateral hip normal inspection, bilateral hip normal range of motion Legs: left leg non-tender, left leg normal inspection, left leg other (Left leg has normal pulse normal appearance) Knees: bilateral knee non-tender, bilateral knee normal inspection, bilateral knee normal range of motion Ankles: bilateral ankle non-tender, bilateral ankle normal inspection, bilateral ankle normal range of motion Neurologic/Psychiatric: alert, normal mood/affect, oriented x 3 Skin: normal color, warm/dry Progress/Results/Core Measures Results/Orders Vital Signs/I&O 01/17/21 15:59 Temp 36.5 Pulse 91 Resp 18 B/P (MAP) 172/83 (112) Pulse Ox 97 Blood Pressure Mean: 112 Departure Impression Primary Impression: Lumbar radiculopathy Disposition: HOME, SELF-CARE Condition: Stable Departure-Patient Inst. Decision time for Depature: 16:21 Referrals: CARISSA ASHER MD (PCP/Family) Primary Care Physician Patient Instructions: Radiculopathy Add. Discharge Instructions: Follow-up with Dr. Nieves this Sunday as scheduled. Return to ER for any concerns. All discharge instructions reviewed with patient and/or family. Voiced understanding. 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
[2021-01-17] MEDS ORDERED: oxyCODONE/APAP 5/325MG (PERCOCET 5) TABLET PO ONE (16:30)
== END 2021-01-17 16:50 | disposition home or self-care (01) ==
LOC: EDUNIT# 15:43 → ER 15:46
DX: M54.16 Radiculopathy, lumbar region (principal); I10 Essential (primary) hypertension; K21.9 Gastro-esophageal reflux disease without esophagitis; G89.29 Other chronic pain; M54.9 Dorsalgia, unspecified; F41.9 Anxiety disorder, unspecified; F31.9 Bipolar disorder, unspecified; F17.210 Nicotine dependence, cigarettes, uncomplicated; Z79.899 Other long term (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; Z79.891 Long term (current) use of opiate analgesic
CPT/HCPCS: 99283

== ENCOUNTER 2021-02-26 07:58 | Emergency (ER) | payer MEDICARE, MEDICAID ==
[~2021-02-26] VITALS: Ht 160 cm; Wt 69.0 kg
[~2021-02-26 07:58] MED LIST changes: +OXYC1TAB11 PO
[2021-02-26] MEDS ORDERED: LACTATED RINGERS 1,000 ML IV ONE (08:15)
[2021-02-26 08:22] LABS: COLOR,URINE RED; GLUCOSE, URINE (UA) NEGATIVE (NEGATIVE); KETONES,URINE TRACE (NEGATIVE); LEUKOCYTE ESTERASE ,URINE 3+ (NEGATIVE); NITRITE,URINE POSITIVE (NEGATIVE); PROTEIN,URINE 2+ (NEGATIVE)
--- NOTE | 2021-02-26 08:22 | ED GU-Female ---
General Chief Complaint: - Reproductive Stated Complaint: UTI Source: patient History of Present Illness Date Seen by Provider: Feb 26, 2021 Time Seen by Provider: 08:05 Initial Comments PT ARRIVES VIA POV FROM HOME, WALKS IN WITH A WALKER STATES SHE "FEELS LIKE SHE IS PEE-ING GLASS" THIS AM STATES SHE BEGAN HAVING UTI SYMPTOMS 3 WEEKS AGO--PAIN, BURNING ON URINATION, LOWER ABDOMINAL CRAMPING AND BLOOD IN URINE WENT TO [facility] 3 WEEKS AGO, AND DX WITH UTI AND PLACED ON MACROBID 5 DAYS LATER, SHE CALLED DR. ASHER'S OFFICE AND WAS SWITCHED TO KEFLEX X 1 WEEK, THEN WAS SWITCHED TO AUGMENTIN X 7 DAYS---FINISHED IT 4 DAYS AGO HAS NOT BEEN SEEN BY ANYONE SINCE HER VISIT AT [facility] 3 WEEKS AGO STATES SYMPTOMS NEVER REALLY IMPROVED, AND THIS AM HER PAIN WAS WORSE AND NOTICED ALOT OF BLOOD IN URINE TODAY NO FEVER NO NAUSEA/VOMITING/DIARRHEA HAS HAD SOME LOWER ABDOMINAL CRAMPING WITH URINATION HAS HISTORY OF CHRONIC UTI'S AND HEMATURIA SEES DR. GARCIA IN [facility] FOR UROLOGY, HAS HAD CYSTOSCOPIES AND URETHRAL DILATIONS IN THE PAST, BLADDER SUSPENSION, CYSTOCOELE/RECTOCOELE REPAIR HAS NOT SEEN DR. GARCIA FOR SEVERAL MONTHS, NEXT APPOINTMENT IS IN MARCH--HAS NOT ATTEMPTED TO CONTACT HIM FOR THIS PROBLEM PCP: DR. ASHER UROLOGIST: DR. GARCIA [facility] Allergies and Home Medications Allergies Coded Allergies: iodine (Verified Allergy, Severe, HIVES, 05/24/19) morphine (Verified Allergy, Severe, HIVES, 05/24/19) hydrocodone (Verified Allergy, Intermediate, Itching, 05/24/19) hydromorphone (Verified Allergy, Unknown, 02/26/21) sulfamethoxazole (Verified Allergy, Unknown, 02/26/21) trimethoprim (Verified Allergy, Unknown, 02/26/21) Patient Home Medication List Home Medication List Reviewed: Yes Baclofen (Baclofen) 20 Mg Tablet, 20 MG PO BID PRN for MUSCLE SPASMS, (Reported) Entered as Reported by: LISA MACHADO on 03/18/18 1333 Bupropion HCl (Wellbutrin Xl) 300 Mg Tab.er.24h, 300 MG PO DAILY, (Reported) Entered as Reported by: SONDRA DE LA PAZ on 05/24/19 0458 C,E,Zinc,Copper 11/Feunc2r/Lut (Ocuvite Adult 50 Plus Softgel) 1 Each Capsule, 1 EACH PO DAILY, (Reported) Entered as Reported by: MARILOU GONZALEZ on 05/26/19 0850 Calcium Carbonate (Calcium) 600 Mg Tablet, 1,200 MG PO DAILY, (Reported) Entered as Reported by: MARILOU GONZALEZ on 05/26/19 0850 Cefdinir (Cefdinir) 300 Mg Capsule, 300 MG PO BID Prescribed by: PROSPER BUTLER on 02/26/21 0911 Cephalexin (Cephalexin) 500 Mg Tablet, 500 MG PO TID Prescribed by: THO CASTRO on 12/03/20 1028 Cholecalciferol (Vitamin D3) (Vitamin D) 1,000 Unit Tablet, 3,000 UNIT PO DAILY, (Reported) Entered as Reported by: LISA MACHADO on 03/18/18 1259 Ciprofloxacin HCl (Ciprofloxacin HCl) 500 Mg Tablet, 500 MG PO BID Prescribed by: GREG SNOW on 11/27/19 1200 Dicyclomine HCl (Dicyclomine HCl) 20 Mg Tablet, 20 MG PO TID, (Reported) Entered as Reported by: MARILOU GONZALEZ on 05/26/19 0853 Divalproex Sodium (Divalproex Sodium ER) 500 Mg Tab.er.24h, 1,000 MG PO HS, (Reported) Entered as Reported by: MARILOU GONZALEZ on 05/26/19 0847 Docusate Sodium (Colace) 100 Mg Capsule, 100 MG PO DAILY Prescribed by: THO CASTRO on 12/03/20 1028 Estradiol (Estradiol Tablet) 2 Mg Tablet, 2 MG PO DAILY, (Reported) Entered as Reported by: LISA MACHADO on 05/05/15 1237 Estradiol (Vagifem) 10 Mcg Tablet, 10 MCG VG MoFr, (Reported) Entered as Reported by: KERRIE ZABALA on 03/26/18 1137 Gabapentin (Gabapentin) 300 Mg Capsule, 300 MG PO BID, (Reported) Entered as Reported by: LISA MACHADO on 03/18/18 1333 Hydroxyzine HCl (Hydroxyzine HCl) 10 Mg Tablet, 10 MG PO TID PRN for ANXIETY, (Reported) Entered as Reported by: LEBRON FLORES on 11/03/16 1033 Ibuprofen (Ibuprofen) 600 Mg Tablet, 600 MG PO Q6H PRN for PAIN-MILD, (Reported) Entered as Reported by: LISA MACHADO on 03/18/18 1333 L.acidoph & Paracasei,B.lactis (Probiotic) 1 Each Capsule, 1 EACH PO DAILY, (Reported) Entered as Reported by: MARILOU OGNZALEZ on 05/26/19 0850 Levocetirizine Dihydrochloride (Levocetirizine Dihydrochloride) 5 Mg Tablet, 5 MG PO HS, (Reported) Entered as Reported by: KERRIE ZABALA on 03/26/18 1137 Levomilnacipran Hydrochloride (Fetzima) 120 Mg Cap.sa.24h, 120 MG PO DAILY, (Reported) Entered as Reported by: LEBRON FLORES on 11/03/16 1033 Methocarbamol (Methocarbamol) 750 Mg Tablet, 750 MG PO Q6-8HR Prescribed by: AMOS VAZQUEZ on 11/29/20 1402 Mometasone Furoate (Mometasone Furoate) 17 Gm [place].pump, 1 SPRAY NSEACH DAILY, (Reported) Entered as Reported by: MARILOU GONZALEZ on 05/26/19 0847 Multivitamins-Min/FA/Ginkgo (One Daily For Women 50+ Adv Tb) 1 Each Tablet, 1 EACH PO DAILY, (Reported) Entered as Reported by: MARILOU GONZALEZ on 05/26/19 0850 Oxycodone HCl/Acetaminophen (Percocet 5-325 mg Tablet) 1 Each Tablet, 1 TAB PO Q4H Prescribed by: THO CASTRO on 12/03/20 1029 Oxycodone HCl/Acetaminophen (Oxycodone-Acetaminophen 5-325) 1 Each Tablet, 1 EACH PO Q4H PRN for PAIN-SEVERE Prescribed by: DEMETRIUS RUBIO on 01/17/21 1622 Pantoprazole Sodium (Pantoprazole Sodium) 40 Mg Tablet.dr, 40 MG PO DAILY, (Reported) Entered as Reported by: MARILOU GONZALEZ on 05/26/19 0857 Phenazopyridine HCl (Pyridium) 100 Mg Tablet, 100 MG PO Q8H PRN for SPASMS Prescribed by: GREG SNOW on 11/27/19 1237 Phenazopyridine HCl (Pyridium) 200 Mg Tablet, 1 TAB PO TID Prescribed by: PROSPER BUTLER on 02/26/21 0911 Polyethylene Glycol 3350 (Miralax) 17 Gm Powd.pack, 17 GM PO PRN, (Reported) Entered as Reported by: KERRIE ZABALA on 03/26/18 1137 Selenomethionine (Selenium) 200 Mcg Tablet, 200 MCG PO DAILY, (Reported) Entered as Reported by: MARILOU GONZALEZ on 05/26/19 0850 Simethicone (Gas-X) 125 Mg Tab.chew, 125 MG PO PRN PRN for GAS, (Reported) Entered as Reported by: MARILOU GONZALEZ on 05/26/19 0850 Tramadol HCl (Tramadol HCl) 50 Mg Tablet, 50 MG PO Q6H PRN for PAIN-MILD (1-4), (Reported) Entered as Reported by: SONDRA DE LA PAZ on 05/24/19 0458 Review of Systems Review of Systems Constitutional: no symptoms reported Respiratory: no symptoms reported Gastrointestinal: see HPI Genitourinary: see HPI Musculoskeletal: other (CHRONIC BACK PAIN, AND L2 COMPRESSION FRACTURE 11/2020) Skin: no symptoms reported Psychiatric/Neurological: No Symptoms Reported Past Slwzcfe-Dszdfl-Tikwmc Hx Immunizations Up To Date Tetanus Booster (TDap): More than 5yrs PED Vaccines UTD: No Seasonal Allergies Seasonal Allergies: Yes Past Medical History Surgery/Hospitalization HX: CERVICAL SPINE FUSION CHOLECYSTECTOMY APPENDECTOMY HYSTERECTOMY/BILATERAL SALPINGO-OOPHORECTOMY TONSILLECTOMY/ADENOIDECTOMY BLADDER SUSPENSION CYSTOCOELE/RECTOCOELE REPAIR CYSTOSCOPIES/URETHRAL DILATIONS KYPHOPLASTY L2 11[place] [place] [address] Surgeries: Yes (neck fusion, bladder tie up, ovarian cystectomy, cystocele/rectocele ) Adenoidectomy, Appendectomy, Bladder Surgery, Eye Surgery, Gallbladder, Hysterectomy, Oophorectomy, Tonsillectomy Respiratory: No Cardiac: Yes Hypertension Neurological: Yes Headaches /Migraines, Vertigo Reproductive Disorders: No Female Reproductive Disorders: Ovarian Cyst DIAMOND MOUNTER History: Hysterectomy, Menopausal Sexually Transmitted Disease: No HIV/AIDS: No Genitourinary: Yes (BLADDER SURGERY) Bladder Infection, UTI-Chronic Gastrointestinal: Yes Gastroesophageal Reflux, Diverticulosis, Polyps, Irritable Bowel Musculoskeletal: Yes (SPINAL STENOSIS;T12-L3 COMP FX'S;C-SPINE SURGERY) Arthritis, Fibromyalgia, Chronic Back Pain Endocrine: No HEENT: Yes Cataract Loss of Vision: Bilateral Hearing Impairment: Denies Cancer: No Psychosocial: Yes (OD/SUICIDE ATTEMPT 2013) Anxiety, Suicide Attempts, Bipolar, Depression Integumentary: No Blood Disorders: No Adverse Reaction/Blood Tranf: No (N/A) Family Medical History Alcoholism 19 FATHER Alzheimer's disease 19 MOTHER Arthritis 19 FATHER 19 MOTHER Cardiovascular disease 19 FATHER (massive heart attack) 19 MOTHER (Mitrial valve prolapse, Stroke Multi.) Cataracts G8 SISTER Completed stroke 19 MOTHER Deafness or hearing loss G8 SISTER Dementia 19 MOTHER Diabetes mellitus 19 MOTHER Fibrocystic disease of breast G8 SISTER Hypercholesterolemia 19 FATHER 19 MOTHER G8 BROTHER G8 SISTER G8 SISTER Osteoporosis G8 SISTER Seizure disorder 19 FATHER Severe allergy G8 BROTHER G8 SISTER Thyroid disease 19 MOTHER G8 BROTHER G8 SISTER G8 SISTER No Family History of: AIDS Abdominal aortic aneurysm [place]'s disease Aphasia Asthma Cancer of mouth Colon cancer Congenital disease Coronary thrombosis Cystic fibrosis Drug abuse Dysphasia Glaucoma Headache disorder Hypertension Infertility Kidney disease Not obtainable due to adoption Parkinson's disease Prostate cancer Psychosocial problem Respiratory disorder Tuberculosis No Pertinent Family Hx PSH: -CYSTOSCOPY/URETHRAL DILATION/RETROGRADE DYE TEST 02/02/[address] GARCIA IN [facility] Physical Exam Vital Signs Vital Signs - First Documented 02/26/21 08:05 Temp 36.9 Pulse 83 Resp 18 B/P (MAP) 130/83 (99) Pulse Ox 100 Capillary Refill : Height, Weight, BMI Height: 5'4.00" Weight: 165lbs. 0.0oz. 74.960110ln; 28.00 BMI Method:Stated General Appearance: WD/WN, no apparent distress, other (PLEASANT/TALKATIVE) Cardiovascular: regular rate, rhythm, no murmur Respiratory: normal breath sounds Gastrointestinal: normal bowel sounds, non tender, soft, no organomegaly Back: no CVA tenderness Extremities: normal inspection Neurologic/Psychiatric: no motor/sensory deficits, alert, normal mood/affect, oriented x 3 Progress/Results/Core Measures Suspected Sepsis SIRS Temperature: Pulse: Respiratory Rate: Laboratory Tests 02/26/21 08:24: White Blood Count 12.1H Blood Pressure / Mean: Laboratory Tests 02/26/21 08:24: Creatinine 0.64, Platelet Count 285, Total Bilirubin 0.4 Results/Orders Lab Results Laboratory Tests Test 02/26/21 08:10 02/26/21 08:24 Range/Units Urine Color RED H Urine Clarity BLOODY H Urine pH 8.0 5-9 Urine Specific [place] 1.020 1.016-1.022 Urine Protein 2+ H NEGATIVE Urine Glucose (UA) NEGATIVE NEGATIVE Urine Ketones TRACE H NEGATIVE Urine Nitrite POSITIVE H NEGATIVE Urine Bilirubin 2+ H NEGATIVE Urine Urobilinogen 1.0 < = 1.0 MG/DL Urine Leukocyte Esterase 3+ H NEGATIVE Urine RBC (Auto) 3+ H NEGATIVE Urine RBC TNTC H /HPF Urine WBC TNTC H /HPF Urine Renal Epithelial Cells TNTC H /HPF Urine Crystals NONE /LPF Urine Bacteria LARGE H /HPF Urine Casts NONE /LPF Urine Mucus NEGATIVE /LPF Urine Culture Indicated YES White Blood Count 12.1 H 4.3-11.0 10^3/uL Red Blood Count 4.34 3.80-5.11 10^6/uL Hemoglobin 13.2 11.5-16.0 g/dL Hematocrit 43 35-52 % Mean Corpuscular Volume 99 80-99 fL Mean Corpuscular Hemoglobin 30 25-34 pg Mean Corpuscular Hemoglobin Concent 31 L 32-36 g/dL Red Cell Distribution Width 13.2 10.0-14.5 % Platelet Count 285 130-400 10^3/uL Mean Platelet Volume 9.7 9.0-12.2 fL Immature Granulocyte % (Auto) 0 % Neutrophils (%) (Auto) 72 42-75 % Lymphocytes (%) (Auto) 19 12-44 % Monocytes (%) (Auto) 9 0-12 % Eosinophils (%) (Auto) 0 0-10 % Basophils (%) (Auto) 1 0-10 % Neutrophils # (Auto) 8.7 H 1.8-7.8 10^3/uL Lymphocytes # (Auto) 2.3 1.0-4.0 10^3/uL Monocytes # (Auto) 1.1 H 0.0-1.0 10^3/uL Eosinophils # (Auto) 0.0 0.0-0.3 10^3/uL Basophils # (Auto) 0.1 0.0-0.1 10^3/uL Immature Granulocyte # (Auto) 0.1 0.0-0.1 10^3/uL Sodium Level 138 135-145 MMOL/L Potassium Level 4.2 3.6-5.0 MMOL/L Chloride Level 104 98-107 MMOL/L Carbon Dioxide Level 23 21-32 MMOL/L Anion Gap 11 5-14 MMOL/L Blood Urea Nitrogen 4 L 7-18 MG/DL Creatinine 0.64 0.60-1.30 MG/DL Estimat Glomerular Filtration Rate 93 BUN/Creatinine Ratio 6 Glucose Level 95 70-105 MG/DL Calcium Level 8.9 8.5-10.1 MG/DL Corrected Calcium 9.2 8.5-10.1 MG/DL Total Bilirubin 0.4 0.1-1.0 MG/DL Aspartate Amino Transf (AST/SGOT) 12 5-34 U/L Alanine Aminotransferase (ALT/SGPT) 10 0-55 U/L Alkaline Phosphatase 74 40-136 U/L Total Protein 6.3 L 6.4-8.2 GM/DL Albumin 3.6 3.2-4.5 GM/DL My Orders Orders - PROSPER BUTLER DO Ua Culture If Indicated (02/26/21 08:05) Cbc With Automated Diff (02/26/21 08:15) Comprehensive Metabolic Panel (02/26/21 08:15) Abdomen/Kub 1view (02/26/21 08:15) Ct Abd/Pelvis Wo(Kidney Stone) (02/26/21 08:15) Ed Iv/Invasive Line Start (02/26/21 08:15) Lactated Ringers (Lr 1000 Ml Iv Solution (02/26/21 08:15) Urine Culture (02/26/21 08:10) Ceftriaxone (Rocephin) (02/26/21 08:45) Medications Given in ED Current Medications Medications Dose Ordered Sig/Jeff Route Start Time Stop Time Status Last Admin Dose Admin Ceftriaxone Sodium 1000 mg/ Sterile Water 10 ml @ 200 mls/hr ONCE ONCE IV 02/26/21 08:45 02/26/21 08:47 DC 02/26/21 09:27 200 MLS/HR Lactated Ringer's 1,000 ml @ 0 mls/hr Q0M ONCE IV 02/26/21 08:15 02/26/21 08:18 DC 02/26/21 08:42 1,000 MLS/HR Vital Signs/I&O 02/26/21 02/26/21 08:05 09:49 Temp 36.9 36.9 Pulse 83 83 Resp 18 18 B/P (MAP) 130/83 (99) 130/83 Pulse Ox 100 100 Capillary Refill : Diagnostic Imaging Comments PER RADIOLOGIST REPORTS AT 0907 KUB--NO ACUTE PROCESS CT ABDOOMPARISON: 08/26/2017 There is mild linear atelectasis and/or scarring in the lung bases. Unenhanced images of the liver, pancreas, adrenal glands and spleen are unremarkable. Gallbladder surgically absent. There is no evidence of renal calculus or hydronephrosis. No ureteric stone or dilatation is identified. Bladder wall remains somewhat prominent without evidence of bladder stone detected. There are multiple lumbar compression fracture deformities with previous treatment at L2. IMPRESSION: No evidence of acute abnormality or adverse change. There is continued or recurrent mild urinary bladder wall thickening. Cystitis is not excluded. There has been development of compression fracture deformities from T12 through L3 with previous augmentation of L2 vertebral body.MEN/PELVIS-- Reviewed: Reviewed by Me Departure Impression Primary Impression: Recurrent UTI Disposition: HOME, SELF-CARE Condition: Stable Departure-Patient Inst. Decision time for Depature: 09:10 Referrals: CARISSA ASHER MD (PCP/Family) Primary Care Physician Patient Instructions: Urinary Tract Infection, Adult (DC) Add. Discharge Instructions: LOTS OF CLEAR LIQUIDS--NO COFFEE, POP OR TEAT CONTINUE YOUR REGULAR MEDICATIONS PRESCRIBED FOLLOW UP WITH YOUR UROLOGIST NEXT WEEK FOR FURTHER CARE, CALL ON SUNDAY TO SCHEDULE APPOINTMENT All discharge instructions reviewed with patient and/or family. Voiced understanding. Scripts Phenazopyridine HCl (Pyridium) 200 Mg Tablet 1 TAB PO TID, #15 TAB Prov: PROSPER BUTLER DO 02/26/21 Cefdinir (Cefdinir) 300 Mg Capsule 300 MG PO BID, #20 CAP Prov: PROSPER BUTLER K DO 02/26/21 PROSPER BUTLER DO Feb 26, 2021 08:22
[2021-02-26 08:35] LABS: BACTERIA,URINE LARGE /HPF; CLARITY,URINE BLOODY; RBC,URINE TNTC /HPF; RENAL EPITHELIAL CELLS,URINE TNTC /HPF; WBC,URINE TNTC /HPF
[2021-02-26 08:38] LABS: BILIRUBIN,URINE 2+ (NEGATIVE)
[2021-02-26 08:42] LABS: ALBUMIN 3.6 GM/DL (3.2-4.5); BASOPHILS # (AUTO) 0.1 10^3/uL (0.0-0.1); BASOPHILS % (AUTO) 1 % (0-10); EOSINOPHILS % (AUTO) 0 % (0-10); HEMATOCRIT 43 % (35-52); HEMOGLOBIN 13.2 g/dL (11.5-16.0); LYMPHOCYTES # (AUTO) 2.3 10^3/uL (1.0-4.0); LYMPHOCYTES % (AUTO) 19 % (12-44); MEAN CORPUSCULAR HEMOGLOBIN 30 pg (25-34); MEAN CORPUSCULAR HGB CONC 31 g/dL (32-36); MEAN CORPUSCULAR VOLUME 99 fL (80-99); MEAN PLATELET VOLUME 9.7 fL (9.0-12.2); MONOCYTES # (AUTO) 1.1 10^3/uL (0.0-1.0); MONOCYTES % (AUTO) 9 % (0-12); NEUTROPHILS # (AUTO) 8.7 10^3/uL (1.8-7.8); NEUTROPHILS % (AUTO) 72 % (42-75); PLATELET COUNT 285 10^3/uL (130-400); WHITE BLOOD COUNT 12.1 10^3/uL (4.3-11.0)
[2021-02-26 08:44] LABS: CALCIUM 8.9 MG/DL (8.5-10.1)
[2021-02-26 08:45] LABS: TOTAL PROTEIN 6.3 GM/DL (6.4-8.2)
[2021-02-26] MEDS ORDERED: cefTRIAXone 1,000 MG in WATER (STERILE) FOR INJECTION 10 ML IV ONE (08:45)
[2021-02-26 08:47] LABS: BILIRUBIN,TOTAL 0.4 MG/DL (0.1-1.0); POTASSIUM 4.2 MMOL/L (3.6-5.0)
[2021-02-26 08:49] LABS: CREATININE SERUM 0.64 MG/DL (0.60-1.30)
--- NOTE | 2021-02-26 09:06 | Diagnostic Imaging Report ---
PROCEDURE: CT urinary tract, rule out kidney stone. TECHNIQUE: Multiple contiguous axial images were obtained through the abdomen and pelvis without the use of intravenous contrast. Auto Exposure Controls were utilized during the CT exam to meet ALARA standards for radiation dose reduction. INDICATION: Right flank pain COMPARISON: 08/26/2017 There is mild linear atelectasis and/or scarring in the lung bases. Unenhanced images of the liver, pancreas, adrenal glands and spleen are unremarkable. Gallbladder surgically absent. There is no evidence of renal calculus or hydronephrosis. No ureteric stone or dilatation is identified. Bladder wall remains somewhat prominent without evidence of bladder stone detected. There are multiple lumbar compression fracture deformities with previous treatment at L2. IMPRESSION: No evidence of acute abnormality or adverse change. There is continued or recurrent mild urinary bladder wall thickening. Cystitis is not excluded. There has been development of compression fracture deformities from T12 through L3 with previous augmentation of L2 vertebral body. Dictated by: Dictated on workstation # [id number]
--- NOTE | 2021-02-26 09:07 | Diagnostic Imaging Report ---
INDICATION: Abdominal pain AP view of the abdomen is obtained with comparison made to study of 01/14/2020. Overall bowel gas pattern is unremarkable. There is no evidence of bowel obstruction. No pathologic abdominal calcification is seen. There has been augmentation of L2 vertebral body fracture. Gallbladder surgically absent. There is sclerosis in the lower lumbar region without other evidence of acute abnormality or adverse change. IMPRESSION: No acute abnormality is detected. Dictated by: Dictated on workstation # [id number]
[2021-02-26] MEDS ORDERED: CEFD300C3 PO (09:11)
[2021-02-26] MEDS ORDERED: PHEN-640 PO (09:11)
[2021-02-26 09:49] VITALS: BP 130/83
== END 2021-02-26 09:48 | disposition home or self-care (01) ==
LOC: EDUNIT# 07:58 → ER 08:00
DX: N39.0 Urinary tract infection, site not specified (principal); I10 Essential (primary) hypertension; K21.9 Gastro-esophageal reflux disease without esophagitis; G89.29 Other chronic pain; M54.9 Dorsalgia, unspecified; F41.9 Anxiety disorder, unspecified; F32.9 Major depressive disorder, single episode, unspecified; Z79.891 Long term (current) use of opiate analgesic; Z79.899 Other long term (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
CPT/HCPCS: 36415; 74018; 74176; 80053; 81000; 85025; 87077; 87088; 87186

== ENCOUNTER 2021-04-27 09:18 | Outpatient (CLI) | payer MEDICARE, MEDICAID ==
[~2021-04-27 09:18] MED LIST changes: -ESTR2TAB PO; +ESTR2TAB3 PO
[2021-04-27 09:25] VITALS: BP 161/73
[2021-04-27] MEDS ORDERED: ZOLEDRONATE (RECLAST) 5 MG/100 ML IV ONE (10:00)
[2021-04-27] MEDS ORDERED: CATHETER FLUSH 10 ML SYR IV PRN (10:00)
== END 2021-04-27 10:27 | disposition home or self-care (01) ==
LOC: SDC 09:18
PROVIDERS: ATTEND Nurse Practitioner Family
DX: M81.0 Age-related osteoporosis without current pathological fracture (principal)
CPT/HCPCS: 96365

== ENCOUNTER 2021-04-28 10:30 | Outpatient (RCR) | payer MEDICARE, MEDICAID | END 2021-04-28 11:56 | disposition home or self-care (01) | PROVIDERS: ATTEND Family Medicine | DX: M48.56XD Collapsed vertebra, not elsewhere classified, lumbar region, subsequent encounter for fracture with routine healing (principal) ==

== ENCOUNTER → 2021-10-04 | Outpatient (CLI) | payer MEDICARE, MEDICAID ==
[~2021-10-04] MED LIST changes: -BETH25TA PO; +BETH25TA2 PO; +CYCL10TA25 PO; +DICY20TA PO; -DICY20TA10 PO; +MOME17SP11 NSEACH; -MOME17SP9 NSEACH; +MONT-40 PO; -MONT10TA32 PO
--- NOTE | 2021-10-04 16:31 | Diagnostic Imaging Report ---
INDICATION: Asymptomatic postmenopausal female. COMPARISON: 10/29/2018. FINDINGS: AP Spine L1-L4: [BMD (g/cm2): 1.279] [T-Score: 0.7] [Z-Score: 2.0] [BMD Previous: 1.101] [BMD % Change: 16.2] LT Hip Neck: [BMD (g/cm2): 0.643] [T-Score: -2.8] [Z-Score: -1.6] LT Hip Total: [BMD (g/cm2):0.797] [T-Score:-1.7] [Z-Score: -0.7] [BMD Previous: 0.820] [BMD % Change: -2.8] RT Hip Neck: [BMD (g/cm2):0.611] [T-Score:-3.1] [Z-Score:-1.8] RT Hip Total: [BMD (g/cm2):0.773] [T-score:-1.9] [Z-Score:-0.9] [BMD Previous:0.829] [BMD % Change:-6.8] *Indicates significant change from prior examination based on 95% confidence level. World Health Organization criteria for BMD interpretation classify patients as Normal (T-score at or above -1.0), Osteopenic (T-score between -1.0 and -2.5) or Osteoporotic (T-score at or below -2.5). LIMITATIONS AND MODIFICATION: None. FRACTURE RISK (FRAX SCORE): The ten year probability of (%): Major Osteoporotic Fracture: [29.6] Hip Fracture: [14.6] IMPRESSION: 1. Osteopenia (Low bone mass). 2. Bone mineral density has decreased the hips as detailed above. Increased bone mineral density in the spine which may be secondary to progressive degenerative changes. 3. See below National Osteoporosis Foundation guidelines on when to potentially initiate pharmacologic therapy. Based on the National Osteoporosis Foundation Guidelines, pharmacologic treatment should be initiated in any of the following, unless clinical conditions suggest otherwise: * Any patient with prior fragility fracture of the hip or vertebrae. A spine fracture indicates 5X risk for subsequent spine fracture and 2X risk for subsequent hip fracture. * Osteoporosis (T-score <-2.5). * Postmenopausal women and men age 50 and older with low bone mass/osteopenia (T-score between -1.0 and -2.5) by DXA and 10-year major osteoporotic fracture greater than 20% or a 10-year probability of hip fracture greater than 3%. These fracture risks are supplied above in the FRAX score, if applicable. * Clinician judgement and/or patient preferences may indicate treatment for people with 10-year fracture probabilities above or below these levels. Dictated by: Dictated on workstation # [id number]
== END ==
LOC: RAD 11:30
PROVIDERS: ATTEND Family Medicine
DX: M85.80 Other specified disorders of bone density and structure, unspecified site (principal); Z78.0 Asymptomatic menopausal state
CPT/HCPCS: 77080

== ENCOUNTER → 2021-10-26 | Outpatient (CLI) | payer MEDICARE, MEDICAID ==
[~2021-10-26] VITALS: Ht 160 cm; Wt 69.0 kg
[~2021-10-26] MED LIST changes: +DENOSUMAB 60 MG/1 ML (PROLIA) SQ SCH
[2021-10-26 11:01] VITALS: BP 160/76
== END ==
LOC: SDC 10:23
PROVIDERS: ATTEND Family Medicine
DX: M81.0 Age-related osteoporosis without current pathological fracture (principal)
CPT/HCPCS: 96372

== ENCOUNTER → 2021-11-21 | Outpatient (CLI) | payer MEDICARE, MEDICAID ==
[~2021-11-21] MED LIST changes: -DENOSUMAB 60 MG/1 ML (PROLIA) SQ SCH
--- NOTE | 2021-11-21 13:40 | Diagnostic Imaging Report ---
INDICATION: Routine screening. COMPARISON: 11/19/2020 and 11/12/2019. TECHNIQUE: 2D and 3D bilateral screening mammography was performed with CAD. FINDINGS: Scattered fibroglandular densities are identified bilaterally. The overall parenchymal pattern is stable. No dominant mass or malignant-appearing microcalcifications are seen. The axillae are unremarkable. IMPRESSION: No mammographic features suspicious for malignancy are identified. ACR BI-RADS Category 2: Benign findings. Result letter will be mailed to the patient. Note: At least 10% of breast cancer is not imaged by mammography. Dictated by: Dictated on workstation # [id number]
== END ==
LOC: RAD 10:45
PROVIDERS: ATTEND Family Medicine
DX: Z12.31 Encounter for screening mammogram for malignant neoplasm of breast (principal)
CPT/HCPCS: 77063; 77067

== ENCOUNTER → 2022-05-04 | Outpatient (CLI) | payer MEDICARE, MEDICAID ==
[~2022-05-04] VITALS: Wt 58.0 kg
[~2022-05-04] MED LIST changes: +DENOSUMAB 60 MG/1 ML (PROLIA) SQ SCH
[2022-05-04 11:00] VITALS: BP 140/63
== END ==
LOC: SDC 10:48
PROVIDERS: ATTEND Family Medicine
DX: M81.0 Age-related osteoporosis without current pathological fracture (principal)
CPT/HCPCS: 96372

== ENCOUNTER → 2022-10-13 | Outpatient (CLI) | payer MEDICARE, MEDICAID ==
[~2022-10-13] MED LIST changes: -DENOSUMAB 60 MG/1 ML (PROLIA) SQ SCH
--- NOTE | 2022-10-13 17:31 | Diagnostic Imaging Report ---
INDICATION: 66-year-old female with low back pain. COMPARISON: CT abdomen and pelvis 02/26/2021. FINDINGS: AP and lateral views of the lumbosacral spine show interval development of an L5 compression fracture since February 2021. There is also compression fracture of L3. L2 has methacrylate from a vertebral augmentation previously. There is a chronic fracture of L1 and T12. There is accentuation of the lumbar lordosis. Spinal cord stimulator is seen. IMPRESSION: 1. Since the prior comparison of February 2021, there have been compression fractures which have developed at L5 and L3. 2. There are chronic compression fractures involving L2, L1 and T12. Dictated by: Dictated on workstation # [id number]
== END ==
LOC: RAD 11:35
PROVIDERS: ATTEND Nurse Practitioner Family
DX: S32.010A Wedge compression fracture of first lumbar vertebra, initial encounter for closed fracture (principal); S32.020A Wedge compression fracture of second lumbar vertebra, initial encounter for closed fracture; S22.089A Unspecified fracture of T11-T12 vertebra, initial encounter for closed fracture; X58.XXXA Exposure to other specified factors, initial encounter
CPT/HCPCS: 72100

== ENCOUNTER 2022-10-23 11:50 | Emergency (ER) | payer MEDICARE, MEDICAID ==
[~2022-10-23] VITALS: Ht 160 cm; Wt 72.6 kg
--- NOTE | 2022-10-23 12:22 | ED General ---
General Stated Complaint: LEGS AND FEET SWELLING | L-3 FRACTURE Source of Information: Patient Exam Limitations: No Limitations History of Present Illness Date Seen by Provider: October 23, 2022 Time Seen by Provider: 12:08 Initial Comments Patient is a 66-year-old female with a long history of chronic spine pain both cervical and lumbar who presents to the emergency department with bilateral lower extremity swelling and increasing pain. She has been seen and evaluated by the nurse practitioner at her primary care physician's office within the last week and is scheduled for an MRI a week from today. The patient was hopeful she could get her MRI moved up to today. She is experiencing no increased loss of function as a result of her cervical and lumbar spine issues. No incontinence, numbness, weakness or tingling. She is on oxycodone, baclofen, naproxen. She states her legs started swelling last Sunday or , 6 days ago. She states she is urinating normally. She does not have a history of congestive heart failure. She is not short of breath. No fevers or chills. Timing/Duration: 1 Week Severity: Moderate Associated Systoms: Other (chronic neck and back pain) Allergies and Home Medications Allergies Coded Allergies: iodine (Verified Allergy, Severe, HIVES, 05/24/19) morphine (Verified Allergy, Severe, HIVES, 05/24/19) hydrocodone (Verified Allergy, Intermediate, Itching, 05/24/19) hydromorphone (Verified Allergy, Unknown, 02/26/21) sulfamethoxazole (Verified Allergy, Unknown, 02/26/21) trimethoprim (Verified Allergy, Unknown, 02/26/21) Patient Home Medication List Home Medication List Reviewed: Yes Baclofen (Baclofen) 20 Mg Tablet, 20 MG PO BID PRN for MUSCLE SPASMS, (Reported) Entered as Reported by: LISA MACHADO on 03/18/18 1333 Bupropion HCl (Wellbutrin Xl) 300 Mg Tab.er.24h, 300 MG PO DAILY, (Reported) Entered as Reported by: SONDRA DE LA PAZ on 05/24/19 0458 C,E,Zinc,Copper 11/Admwb7q/Lut (Ocuvite Adult 50 Plus Softgel) 1 Each Capsule, 1 EACH PO DAILY, (Reported) Entered as Reported by: MARILOU GONZALEZ on 05/26/19 0850 Calcium Carbonate (Calcium) 600 Mg Tablet, 1,200 MG PO DAILY, (Reported) Entered as Reported by: MARILOU GONZALEZ on 05/26/19 0850 Cefdinir (Cefdinir) 300 Mg Capsule, 300 MG PO BID Prescribed by: PROSPER BUTLER on 02/26/21 0911 Cephalexin (Cephalexin) 500 Mg Tablet, 500 MG PO TID Prescribed by: THO CASTRO on 12/03/20 1028 Cholecalciferol (Vitamin D3) (Vitamin D) 1,000 Unit Tablet, 3,000 UNIT PO DAILY, (Reported) Entered as Reported by: LISA MACHADO on 03/18/18 1259 Ciprofloxacin HCl (Ciprofloxacin HCl) 500 Mg Tablet, 500 MG PO BID Prescribed by: GREG SNOW on 11/27/19 1200 Dicyclomine HCl (Dicyclomine HCl) 20 Mg Tablet, 20 MG PO TID, (Reported) Entered as Reported by: MARILOU GONZALEZ on 05/26/19 0853 Divalproex Sodium (Divalproex Sodium ER) 500 Mg Tab.er.24h, 1,000 MG PO HS, (Reported) Entered as Reported by: MARILOU GONZALEZ on 05/26/19 0847 Docusate Sodium (Colace) 100 Mg Capsule, 100 MG PO DAILY Prescribed by: THO CASTRO on 12/03/20 1028 Estradiol (Estradiol Tablet) 2 Mg Tablet, 2 MG PO DAILY, (Reported) Entered as Reported by: LISA MACHADO on 05/05/15 1237 Estradiol (Vagifem) 10 Mcg Tablet, 10 MCG VG MoFr, (Reported) Entered as Reported by: KERRIE ZABALA on 03/26/18 1137 Gabapentin (Gabapentin) 300 Mg Capsule, 300 MG PO BID, (Reported) Entered as Reported by: LISA MACHADO on 03/18/18 1333 Hydroxyzine HCl (Hydroxyzine HCl) 10 Mg Tablet, 10 MG PO TID PRN for ANXIETY, (Reported) Entered as Reported by: LEBRON FLORES on 11/03/16 1033 Ibuprofen (Ibuprofen) 600 Mg Tablet, 600 MG PO Q6H PRN for PAIN-MILD, (Reported) Entered as Reported by: LISA MACHADO on 03/18/18 1333 L.acidoph & Paracasei,B.lactis (Probiotic) 1 Each Capsule, 1 EACH PO DAILY, (Reported) Entered as Reported by: MARILOU GONZALEZ on 05/26/19 0850 Levocetirizine Dihydrochloride (Levocetirizine Dihydrochloride) 5 Mg Tablet, 5 M G PO HS, (Reported) Entered as Reported by: KERRIE ZABALA on 03/26/18 1137 Levomilnacipran Hydrochloride (Fetzima) 120 Mg Cap.sa.24h, 120 MG PO DAILY, (Reported) Entered as Reported by: LEBRON FLORES on 11/03/16 1033 Methocarbamol (Methocarbamol) 750 Mg Tablet, 750 MG PO Q6-8HR Prescribed by: AMOS VAZQUEZ on 11/29/20 1402 Mometasone Furoate (Mometasone Furoate) 17 Gm Mimbres.pump, 1 SPRAY NSEACH DAILY, (Reported) Entered as Reported by: MARILOU GONZALEZ on 05/26/19 0847 Multivitamins-Min/FA/Ginkgo (One Daily For Women 50+ Adv Tb) 1 Each Tablet, 1 EACH PO DAILY, (Reported) Entered as Reported by: MARILOU GONZALEZ on 05/26/19 0850 Oxycodone HCl/Acetaminophen (Percocet 5-325 mg Tablet) 1 Each Tablet, 1 TAB PO Q4H Prescribed by: THO CASTRO on 12/03/20 1029 Oxycodone HCl/Acetaminophen (Oxycodone-Acetaminophen 5-325) 1 Each Tablet, 1 EACH PO Q4H PRN for PAIN-SEVERE Prescribed by: DEMETRIUS RUBIO on 01/17/21 1622 Pantoprazole Sodium (Pantoprazole Sodium) 40 Mg Tablet.dr, 40 MG PO DAILY, (Reported) Entered as Reported by: MARILOU GONZALEZ on 05/26/19 0857 Phenazopyridine HCl (Pyridium) 100 Mg Tablet, 100 MG PO Q8H PRN for SPASMS Prescribed by: GREG SNOW on 11/27/19 1237 Phenazopyridine HCl (Pyridium) 200 Mg Tablet, 1 TAB PO TID Prescribed by: PROSPER BUTLER on 02/26/21 0911 Polyethylene Glycol 3350 (Miralax) 17 Gm Powd.pack, 17 GM PO PRN, (Reported) Entered as Reported by: KERRIE ZABALA on 03/26/18 1137 Selenomethionine (Selenium) 200 Mcg Tablet, 200 MCG PO DAILY, (Reported) Entered as Reported by: MARILOU GONZALEZ on 05/26/19 0850 Simethicone (Gas-X) 125 Mg Tab.chew, 125 MG PO PRN PRN for GAS, (Reported) Entered as Reported by: MARILOU GONZALEZ on 05/26/19 0850 Tramadol HCl (Tramadol HCl) 50 Mg Tablet, 50 MG PO Q6H PRN for PAIN-MILD (1-4), (Reported) Entered as Reported by: SONDRA DE LA PAZ on 05/24/19 0458 Review of Systems Review of Systems Constitutional: see HPI EENTM: no symptoms reported Respiratory: no symptoms reported Cardiovascular: edema (bilateral LE) Gastrointestinal: no symptoms reported Genitourinary: no symptoms reported Musculoskeletal: back pain (chronic lumbar back and cervical spine pain), muscle pain, muscle stiffness (right neck) All Other Systems Reviewed Negative Unless Noted: Yes Past Tyrigkz-Zzyasa-Lohknz Hx Immunizations Up To Date Tetanus Booster (TDap): More than 5yrs PED Vaccines UTD: No First/Initial COVID19 Vaccinat: J AND J August Seasonal Allergies Seasonal Allergies: Yes Past Medical History Surgery/Hospitalization HX: CERVICAL SPINE FUSION CHOLECYSTECTOMY APPENDECTOMY HYSTERECTOMY/BILATERAL SALPINGO-OOPHORECTOMY TONSILLECTOMY/ADENOIDECTOMY BLADDER SUSPENSION CYSTOCOELE/RECTOCOELE REPAIR CYSTOSCOPIES/URETHRAL DILATIONS KYPHOPLASTY L2 11/[address] CHIN AT [address] Surgeries: Yes (neck fusion, bladder tie up, ovarian cystectomy, cystocele/rectocele ) Adenoidectomy, Appendectomy, Bladder Surgery, Eye Surgery, Gallbladder, Hysterectomy, Oophorectomy, Tonsillectomy Respiratory: No Cardiac: Yes Hypertension Neurological: Yes Headaches /Migraines, Vertigo Reproductive Disorders: No Female Reproductive Disorders: Ovarian Cyst STEWARD/STEWARDESS BATH History: Hysterectomy, Menopausal Sexually Transmitted Disease: No HIV/AIDS: No Genitourinary: Yes (BLADDER SURGERY) Bladder Infection, UTI-Chronic Gastrointestinal: Yes Gastroesophageal Reflux, Diverticulosis, Polyps, Irritable Bowel Musculoskeletal: Yes (SPINAL STENOSIS;T12-L3 COMP FX'S;C-SPINE SURGERY) Arthritis, Fibromyalgia, Chronic Back Pain Endocrine: No HEENT: Yes Cataract Loss of Vision: Bilateral Hearing Impairment: Denies Cancer: No Psychosocial: Yes (OD/SUICIDE ATTEMPT 2013) Anxiety, Suicide Attempts, Bipolar, Depression Integumentary: No Blood Disorders: No Adverse Reaction/Blood Tranf: No (N/A) Family Medical History Alcoholism 19 FATHER Alzheimer's disease 19 MOTHER Arthritis 19 FATHER 19 MOTHER Cardiovascular disease 19 FATHER (massive heart attack) 19 MOTHER (Mitrial valve prolapse, Stroke Multi.) Cataracts G8 SISTER Completed stroke 19 MOTHER Deafness or hearing loss G8 SISTER Dementia 19 MOTHER Diabetes mellitus 19 MOTHER Fibrocystic disease of breast G8 SISTER Hypercholesterolemia 19 FATHER 19 MOTHER G8 BROTHER G8 SISTER G8 SISTER Osteoporosis G8 SISTER Seizure disorder 19 FATHER Severe allergy G8 BROTHER G8 SISTER Thyroid disease 19 MOTHER G8 BROTHER G8 SISTER G8 SISTER No Family History of: AIDS Abdominal aortic aneurysm Vitor's disease Aphasia Asthma Cancer of mouth Colon cancer Congenital disease Coronary thrombosis Cystic fibrosis Drug abuse Dysphasia Glaucoma Headache disorder Hypertension Infertility Kidney disease Not obtainable due to adoption Parkinson's disease Prostate cancer Psychosocial problem Respiratory disorder Tuberculosis No Pertinent Family Hx PSH: -CYSTOSCOPY/URETHRAL DILATION/RETROGRADE DYE TEST 02/02/[address] GARCIA [place] Physical Exam Vital Signs Vital Signs - First Documented 10/23/22 12:00 Temp 36.2 Pulse 95 Resp 16 B/P (MAP) 151/70 (97) Pulse Ox 96 O2 Delivery Room Air Capillary Refill : Height, Weight, BMI Height: 5'4.00" Weight: 165lbs. 0.0oz. 74.915181mx; 26.00 BMI Method:Stated General Appearance: No Apparent Distress, WD/WN Eyes: Bilateral Eye Normal Inspection, Bilateral Eye PERRL, Bilateral Eye EOMI HEENT: PERRL/EOMI Neck: Normal Inspection Respiratory: Lungs Clear, Normal Breath Sounds, No Accessory Muscle Use, No Respiratory Distress Cardiovascular: Regular Rate, Rhythm, Normal Peripheral Pulses Gastrointestinal: Non Tender, Soft Extremity: Normal Inspection, Pedal Edema (2+ edema bilateral LE; ) Neurologic/Psychiatric: Alert, Oriented x3, No Motor/Sensory Deficits, Normal Mood/Affect, main galley scullion II-XII Norm as Tested Skin: Warm/Dry, Other (erythema bilateral feet) Progress/Results/Core Measures Suspected Sepsis SIRS Temperature: Pulse: Respiratory Rate: Laboratory Tests 10/23/22 12:36: White Blood Count 10.3 Blood Pressure / Mean: Laboratory Tests 10/23/22 12:36: Creatinine 0.75, Platelet Count 286 Results/Orders Lab Results Laboratory Tests Test 10/23/22 12:20 10/23/22 12:36 Range/Units Urine Color YELLOW Urine Clarity CLEAR Urine pH 6.0 5-9 Urine Specific [place] 1.010 L 1.016-1.022 Urine Protein NEGATIVE NEGATIVE Urine Glucose (UA) NEGATIVE NEGATIVE Urine Ketones NEGATIVE NEGATIVE Urine Nitrite NEGATIVE NEGATIVE Urine Bilirubin NEGATIVE NEGATIVE Urine Urobilinogen 0.2 < = 1.0 MG/DL Urine Leukocyte Esterase 1+ H NEGATIVE Urine RBC (Auto) TRACE-I H NEGATIVE Urine RBC 2-5 H /HPF Urine WBC 5-10 H /HPF Urine Squamous Epithelial Cells 2-5 /HPF Urine Crystals NONE /LPF Urine Bacteria FEW H /HPF Urine Casts NONE /LPF Urine Mucus NEGATIVE /LPF Urine Culture Indicated YES White Blood Count 10.3 4.3-11.0 10^3/uL Red Blood Count 4.00 3.80-5.11 10^6/uL Hemoglobin 12.5 11.5-16.0 g/dL Hematocrit 37 35-52 % Mean Corpuscular Volume 92 80-99 fL Mean Corpuscular Hemoglobin 31 25-34 pg Mean Corpuscular Hemoglobin Concent 34 32-36 g/dL Red Cell Distribution Width 12.5 10.0-14.5 % Platelet Count 286 130-400 10^3/uL Mean Platelet Volume 10.1 9.0-12.2 fL Immature Granulocyte % (Auto) 0 % Neutrophils (%) (Auto) 59 42-75 % Lymphocytes (%) (Auto) 29 12-44 % Monocytes (%) (Auto) 12 0-12 % Eosinophils (%) (Auto) 0 0-10 % Basophils (%) (Auto) 1 0-10 % Neutrophils # (Auto) 6.1 1.8-7.8 10^3/uL Lymphocytes # (Auto) 3.0 1.0-4.0 10^3/uL Monocytes # (Auto) 1.2 H 0.0-1.0 10^3/uL Eosinophils # (Auto) 0.0 0.0-0.3 10^3/uL Basophils # (Auto) 0.1 0.0-0.1 10^3/uL Immature Granulocyte # (Auto) 0.0 0.0-0.1 10^3/uL Sodium Level 131 L 135-145 MMOL/L Potassium Level 4.2 3.6-5.0 MMOL/L Chloride Level 98 98-107 MMOL/L Carbon Dioxide Level 21 21-32 MMOL/L Anion Gap 12 5-14 MMOL/L Blood Urea Nitrogen 13 7-18 MG/DL Creatinine 0.75 0.60-1.30 MG/DL Estimat Glomerular Filtration Rate 88 BUN/Creatinine Ratio 17 Glucose Level 95 70-105 MG/DL Calcium Level 9.2 8.5-10.1 MG/DL My Orders Orders - YARA TREVINO MD Basic Metabolic Panel (10/23/22 12:21) Cbc With Automated Diff (10/23/22 12:21) Ua Culture If Indicated (10/23/22 12:21) Baclofen Tablet (Lioresal Tablet) (10/23/22 12:40) Urine Culture (10/23/22 12:20) Vital Signs/I&O 10/23/22 12:00 Temp 36.2 Pulse 95 Resp 16 B/P (MAP) 151/70 (97) Pulse Ox 96 O2 Delivery Room Air Capillary Refill : Progress Note : Time: 13:24 Progress Note Patient seen and evaluated by me, evaluation today includes physical exam, CBC, basic metabolic panel and urinalysis. Pertinent physical exam findings well- developed well-nourished elderly female in no acute distress. No focal neurologic deficits, intact motor strength and sensation. She has 2+ edema in her bilateral lower extremities to the knees. No open wounds or cellulitic changes. Differential diagnosis based on history and physical, acute kidney injury, peripheral edema related to NSAID use, congestive heart failure Labs reviewed by me, CBC is normal, chemistry is normal/normal renal function. UA shows trace red blood cells, 5-10 white blood cells and few bacteria. Patient is asymptomatic of urinary tract infection. She did remember that she is currently on 250 mg of Keflex 1 time a day and has been on it for many months. This is a preventative from the urologist because she has had some any urinary tract infections. Patient has been given 1 dose of her 10 mg baclofen as she has been taking an extra dose in the middle of the day. She has follow- up scheduled with Dr. Demarco a week from tomorrow. She has her MRI scheduled a week from today. No clinical or objective findings to warrant further studies from the emergency department. Consideration for chest x-ray, EKG however history and physical exam do not support the need, no concern for congestive heart failure today. Patient is advised to elevate her legs, keep her follow-up appointments. Return precautions given in verbal and written format. All questions are sought and answered. Departure Impression Primary Impression: Peripheral edema Additional Impression: Chronic back pain Qualified Codes: M54.50 - Low back pain, unspecified; G89.29 - Other chronic pain Disposition: HOME, SELF-CARE Condition: Stable Departure-Patient Inst. Decision time for Depature: 13:28 Referrals: CARISSA DEMARCO MD (PCP/Family) Primary Care Physician Patient Instructions: Swelling Add. Discharge Instructions: When you are at rest, sitting or laying down, elevate your legs as much as possible to reduce swelling. Continue your daily medications as prescribed by your primary care physician. If you develop worsening swelling especially with shortness of breath, fever, cough or any other emergent, concerning symptoms please return to the emergency department for reevaluation. Copy Copies To 1: CARISSA DEMARCO MD, KATHRYN M MD October 23, 2022 12:22
[2022-10-23] MEDS ORDERED: BACLOFEN 10 MG (LIORESAL) TAB PO STA (12:40)
[2022-10-23 12:44] LABS: BASOPHILS # (AUTO) 0.1 10^3/uL (0.0-0.1); BASOPHILS % (AUTO) 1 % (0-10); EOSINOPHILS % (AUTO) 0 % (0-10); HEMATOCRIT 37 % (35-52); HEMOGLOBIN 12.5 g/dL (11.5-16.0); LYMPHOCYTES % (AUTO) 29 % (12-44); MEAN CORPUSCULAR HEMOGLOBIN 31 pg (25-34); MEAN CORPUSCULAR HGB CONC 34 g/dL (32-36); MEAN CORPUSCULAR VOLUME 92 fL (80-99); MEAN PLATELET VOLUME 10.1 fL (9.0-12.2); MONOCYTES # (AUTO) 1.2 10^3/uL (0.0-1.0); MONOCYTES % (AUTO) 12 % (0-12); NEUTROPHILS # (AUTO) 6.1 10^3/uL (1.8-7.8); NEUTROPHILS % (AUTO) 59 % (42-75); PLATELET COUNT 286 10^3/uL (130-400); WHITE BLOOD COUNT 10.3 10^3/uL (4.3-11.0)
[2022-10-23 12:44] LABS: BILIRUBIN,URINE NEGATIVE (NEGATIVE); CLARITY,URINE CLEAR; COLOR,URINE YELLOW; GLUCOSE, URINE (UA) NEGATIVE (NEGATIVE); KETONES,URINE NEGATIVE (NEGATIVE); LEUKOCYTE ESTERASE ,URINE 1+ (NEGATIVE); NITRITE,URINE NEGATIVE (NEGATIVE); PROTEIN,URINE NEGATIVE (NEGATIVE)
[2022-10-23 12:54] LABS: POTASSIUM 4.2 MMOL/L (3.6-5.0)
[2022-10-23 12:55] LABS: CALCIUM 9.2 MG/DL (8.5-10.1)
[2022-10-23 12:59] LABS: BACTERIA,URINE FEW /HPF
[2022-10-23 13:00] LABS: CREATININE SERUM 0.75 MG/DL (0.60-1.30)
[2022-10-23 13:45] VITALS: BP 136/75
== END 2022-10-23 13:45 | disposition home or self-care (01) ==
LOC: EDUNIT# 11:50 → ER 11:57
DX: R60.0 Localized edema (principal); M54.50 Low back pain, unspecified; G89.29 Other chronic pain; N39.0 Urinary tract infection, site not specified; Z98.890 Other specified postprocedural states; Z88.2 Allergy status to sulfonamides
CPT/HCPCS: 36415; 80048; 81000; 85025; 87088

== ENCOUNTER 2022-10-26 19:49 | Emergency (ER) | payer MEDICARE, MEDICAID ==
[~2022-10-26] VITALS: Ht 160 cm; Wt 72.6 kg
[2022-10-26] MEDS ORDERED: FAMOTIDINE 20MG/2ML IV (PEPCID) IV STA (20:31)
[2022-10-26] MEDS ORDERED: diphenhydrAMINE 50 MG/ML INJ (BENADRYL) IV STA (20:31)
[2022-10-26 21:02] LABS: BILIRUBIN,URINE NEGATIVE (NEGATIVE); CLARITY,URINE CLEAR; COLOR,URINE YELLOW; GLUCOSE, URINE (UA) NEGATIVE (NEGATIVE); KETONES,URINE TRACE (NEGATIVE); LEUKOCYTE ESTERASE ,URINE 1+ (NEGATIVE); NITRITE,URINE NEGATIVE (NEGATIVE); PH,URINE 7.5 (5-9); PROTEIN,URINE NEGATIVE (NEGATIVE)
[2022-10-26 21:08] LABS: BASOPHILS % (AUTO) 1 % (0-10); EOSINOPHILS % (AUTO) 0 % (0-10); HEMATOCRIT 38 % (35-52); HEMOGLOBIN 12.7 g/dL (11.5-16.0); LYMPHOCYTES # (AUTO) 1.5 10^3/uL (1.0-4.0); LYMPHOCYTES % (AUTO) 19 % (12-44); MEAN CORPUSCULAR HEMOGLOBIN 31 pg (25-34); MEAN CORPUSCULAR HGB CONC 34 g/dL (32-36); MEAN CORPUSCULAR VOLUME 93 fL (80-99); MEAN PLATELET VOLUME 10.8 fL (9.0-12.2); MONOCYTES # (AUTO) 0.3 10^3/uL (0.0-1.0); MONOCYTES % (AUTO) 4 % (0-12); NEUTROPHILS % (AUTO) 76 % (42-75); PLATELET COUNT 284 10^3/uL (130-400); WHITE BLOOD COUNT 7.8 10^3/uL (4.3-11.0)
[2022-10-26 21:19] LABS: BACTERIA,URINE MODERATE /HPF; RBC,URINE 0-2 /HPF; WBC,URINE 0-2 /HPF
--- NOTE | 2022-10-26 21:19 | ED Lower Extremity ---
General Chief Complaint: Lower Extremity Stated Complaint: HIVES/FEET SWELLING Nursing Triage Note: PT REPORTS BILATERAL LOWER EXTREMITY SWELLING AND REDNESS THAT BEGAN SUNDAY. PT SEEN SUNDAY FOR SAME. PT GIVEN PREDNISONE AND PEPCID FOR SX BUT SX PERSIST. Source: patient (VERY DIFFICULT HISTORIAN, TALKS NON-STOP AT GREAT LENGTH, VERY DIFFICULT TO KEEP ON SUBJECT. ), old records History of Present Illness Date Seen by Provider: October 26, 2022 Time Seen by Provider: 20:23 Initial Comments PT ARRIVES VIA POV FROM HOME WITH WALKER. C/O SWELLING AND REDNESS TO BOTH FEET AND LOWER LEGS SINCE Sunday10/20/22 PT WAS SEEN HERE IN ER ON SUNDAY, NO RX GIVEN. PRESCRIPTION FOR PEPCID CALLED IN TODAY BY INSULATION MECHANIC AT DR. ASHER'S OFFICE THERE IS NO PAIN TO HER FEET OR LEGS. SHE STATES THEY ARE SLIGHTLY ITCHY THERE IS NO PARESTHESIAS OR MOTOR DEFICITS SHE HAS CHRONIC BACK AND NECK PAIN AND TAKES OXYCODONE DAILY, IN ADDITION TO BACLOFEN, GABAPENTIN, AND VARIOUS NSAIDS--SHE MOST RECENTLY BEEN TAKING NAPROXEN, AND SHE HAS ALSO BEEN TAKING IBUPROFEN IN ADDITION TO THAT. SHE HAS CHRONIC URINARY INCONTINENCE, STATES SHE HAS BEEN URINATING A NORMAL AMOUNT. NO LOSS OF BOWEL CONTROL NO SHORTNESS OF BREATH OR CHEST PAIN NO FEVER SHE HAS AN APPOINTMENT ON Sunday10/31/[address] ASHER PCP: DR. ASHER Allergies and Home Medications Allergies Coded Allergies: iodine (Verified Allergy, Severe, HIVES, 05/24/19) morphine (Verified Allergy, Severe, HIVES, 05/24/19) hydrocodone (Verified Allergy, Intermediate, Itching, 05/24/19) hydromorphone (Verified Allergy, Unknown, 02/26/21) sulfamethoxazole (Verified Allergy, Unknown, 02/26/21) trimethoprim (Verified Allergy, Unknown, 02/26/21) Patient Home Medication List Home Medication List Reviewed: Yes Baclofen (Baclofen) 20 Mg Tablet, 20 MG PO BID PRN for MUSCLE SPASMS, (Reported) Entered as Reported by: LISA MACHADO on 03/18/18 1333 Bupropion HCl (Wellbutrin Xl) 300 Mg Tab.er.24h, 300 MG PO DAILY, (Reported) Entered as Reported by: SONDRA DE LA PAZ on 05/24/19 9028 C,E,Zinc,Copper 11/Ibdxh2i/Lut (Ocuvite Adult 50 Plus Softgel) 1 Each Capsule, 1 EACH PO DAILY, (Reported) Entered as Reported by: MARILOU GONZALEZ on 05/26/19 0850 Calcium Carbonate (Calcium) 600 Mg Tablet, 1,200 MG PO DAILY, (Reported) Entered as Reported by: MARILOU GONZALEZ on 05/26/19 0850 Cefdinir (Cefdinir) 300 Mg Capsule, 300 MG PO BID Prescribed by: PROSPER BUTLER on 02/26/21 0911 Cephalexin (Cephalexin) 500 Mg Tablet, 500 MG PO TID Prescribed by: THO CASTRO on 12/03/20 1028 Cephalexin (Cephalexin) 500 Mg Tablet, 500 MG PO QID Prescribed by: PROSPER BUTLER on 10/26/22 2222 Cholecalciferol (Vitamin D3) (Vitamin D) 1,000 Unit Tablet, 3,000 UNIT PO DAILY, (Reported) Entered as Reported by: LISA MACHADO on 03/18/18 1259 Ciprofloxacin HCl (Ciprofloxacin HCl) 500 Mg Tablet, 500 MG PO BID Prescribed by: GREG SNOW on 11/27/19 1200 Dicyclomine HCl (Dicyclomine HCl) 20 Mg Tablet, 20 MG PO TID, (Reported) Entered as Reported by: MARILOU GONZALEZ on 05/26/19 0853 Divalproex Sodium (Divalproex Sodium ER) 500 Mg Tab.er.24h, 1,000 MG PO HS, (Reported) Entered as Reported by: MARILOU GONZALEZ on 05/26/19 0847 Docusate Sodium (Colace) 100 Mg Capsule, 100 MG PO DAILY Prescribed by: THO CASTRO on 12/03/20 1028 Estradiol (Estradiol Tablet) 2 Mg Tablet, 2 MG PO DAILY, (Reported) Entered as Reported by: LISA MACHADO on 05/05/15 1237 Estradiol (Vagifem) 10 Mcg Tablet, 10 MCG VG MoFr, (Reported) Entered as Reported by: KERRIE ZABALA on 03/26/18 1137 Furosemide (Lasix) 20 Mg Tablet, 20 MG PO DAILY Prescribed by: PROSPER BUTLER on 10/26/22 2155 Gabapentin (Gabapentin) 300 Mg Capsule, 300 MG PO BID, (Reported) Entered as Reported by: LISA MACHADO on 03/18/18 1333 Hydroxyzine HCl (Hydroxyzine HCl) 10 Mg Tablet, 10 MG PO TID PRN for ANXIETY, (Reported) Entered as Reported by: LEBRON FLORES on 11/03/16 1033 Ibuprofen (Ibuprofen) 600 Mg Tablet, 600 MG PO Q6H PRN for PAIN-MILD, (Reported) Entered as Reported by: LISA MACHADO on 03/18/18 1333 L.acidoph & Paracasei,B.lactis (Probiotic) 1 Each Capsule, 1 EACH PO DAILY, (Reported) Entered as Reported by: MARILOU GONZALEZ on 05/26/19 0850 Levocetirizine Dihydrochloride (Levocetirizine Dihydrochloride) 5 Mg Tablet, 5 MG PO HS, (Reported) Entered as Reported by: KERRIE ZABALA on 03/26/18 1137 Levomilnacipran Hydrochloride (Fetzima) 120 Mg Cap.sa.24h, 120 MG PO DAILY, (Reported) Entered as Reported by: LEBRON FLORES on 11/03/16 1033 Methocarbamol (Methocarbamol) 750 Mg Tablet, 750 MG PO Q6-8HR Prescribed by: AMOS VAZQUEZ on 11/29/20 1402 Mometasone Furoate (Mometasone Furoate) 17 Gm [place].pump, 1 SPRAY NSEACH DAILY, (Reported) Entered as Reported by: MARILOU GONZALEZ on 05/26/19 0847 Multivitamins-Min/FA/Ginkgo (One Daily For Women 50+ Adv Tb) 1 Each Tablet, 1 EACH PO DAILY, (Reported) Entered as Reported by: MARILOU GONZALEZ on 05/26/19 0850 Oxycodone HCl/Acetaminophen (Percocet 5-325 mg Tablet) 1 Each Tablet, 1 TAB PO Q4H Prescribed by: THO CASTRO on 12/03/20 1029 Oxycodone HCl/Acetaminophen (Oxycodone-Acetaminophen 5-325) 1 Each Tablet, 1 EACH PO Q4H PRN for PAIN-SEVERE Prescribed by: DEMETRIUS RUBIO on 01/17/21 1622 Pantoprazole Sodium (Pantoprazole Sodium) 40 Mg Tablet.dr, 40 MG PO DAILY, (Reported) Entered as Reported by: MARILOU GONZALEZ on 05/26/19 0857 Phenazopyridine HCl (Pyridium) 100 Mg Tablet, 100 MG PO Q8H PRN for SPASMS Prescribed by: GREG SNOW on 11/27/19 1237 Phenazopyridine HCl (Pyridium) 200 Mg Tablet, 1 TAB PO TID Prescribed by: PROSPRE BUTLER on 02/26/21 0911 Polyethylene Glycol 3350 (Miralax) 17 Gm Powd.pack, 17 GM PO PRN, (Reported) Entered as Reported by: KERRIE ZABALA on 03/26/18 1137 Potassium Chloride (Potassium Chloride) 10 Meq Tab.er.prt, 10 MEQ PO DAILY Prescribed by: PROSPER BUTLER on 10/26/22 2155 Selenomethionine (Selenium) 200 Mcg Tablet, 200 MCG PO DAILY, (Reported) Entered as Reported by: MARILOU GONZALEZ on 05/26/19 0850 Simethicone (Gas-X) 125 Mg Tab.chew, 125 MG PO PRN PRN for GAS, (Reported) Entered as Reported by: MARILOU GONZALEZ on 05/26/19 0850 Tramadol HCl (Tramadol HCl) 50 Mg Tablet, 50 MG PO Q6H PRN for PAIN-MILD (1-4), (Reported) Entered as Reported by: SONDRA DE LA PAZ on 05/24/19 0458 Review of Systems Constitutional: no symptoms reported; No chills, No diaphoresis, No fever EENTM: no symptoms reported Respiratory: no symptoms reported; No short of breath Cardiovascular: No chest pain; edema; No palpitations, No syncope Gastrointestinal: no symptoms reported Genitourinary: see HPI Musculoskeletal: see HPI Skin: see HPI Psychiatric/Neurological: No Symptoms Reported Past Rfzvrcl-Ovrnwz-Mjounh Hx Patient Social History Tobacco Use?: Yes Tobacco type used: Cigarettes Smoking Status: Current Everyday Smoker Substance use?: No Alcohol Use?: No Pt feels they are or have been: No Immunizations Up To Date Tetanus Booster (TDap): More than 5yrs PED Vaccines UTD: No Influenza Vaccine Up-to-Date: Yes; Up-to-Date First/Initial COVID19 Vaccinat: X3 Second COVID19 Vaccination Kenneth: X3 Third COVID19 Vaccination Date: X3 Seasonal Allergies Seasonal Allergies: Yes Past Medical History Surgery/Hospitalization HX: CERVICAL SPINE FUSION, CHOLECYSTECTOMY, APPENDECTOMY, HYSTERECTOMY/BILATERAL SALPINGO-OOPHORECTOMY, TONSILLECTOMY/ADENOIDECTOMY, BLADDER SUSPENSION, CYSTOCOELE/RECTOCOELE REPAIR, CYSTOSCOPIES/URETHRAL DILATION, SKYPHOPLASTY L2 11/[address] 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, Menopausal Sexually Transmitted Disease: No HIV/AIDS: No Genitourinary: Yes (BLADDER SURGERY) Bladder Infection, UTI-Chronic Gastrointestinal: Yes Gastroesophageal Reflux, Diverticulosis, Polyps, Irritable Bowel Musculoskeletal: Yes (SPINAL STENOSIS;T12-L3 COMP FX'S;C-SPINE SURGERY;COMP FX'S) Degenerate Disk Disease, Osteoporosis, Arthritis, Fibromyalgia, Chronic Back Pain, Fractures Endocrine: No HEENT: Yes Cataract Loss of Vision: Bilateral Hearing Impairment: Denies Cancer: No Psychosocial: Yes (OD/SUICIDE ATTEMPT 2013) Anxiety, Suicide Attempts, Bipolar, Depression Integumentary: No Blood Disorders: No Adverse Reaction/Blood Tranf: No (N/A) Family Medical History Alcoholism 19 FATHER Alzheimer's disease 19 MOTHER Arthritis 19 FATHER 19 MOTHER Cardiovascular disease 19 FATHER (massive heart attack) 19 MOTHER (Mitrial valve prolapse, Stroke Multi.) Cataracts G8 SISTER Completed stroke 19 MOTHER Deafness or hearing loss G8 SISTER Dementia 19 MOTHER Diabetes mellitus 19 MOTHER Fibrocystic disease of breast G8 SISTER Hypercholesterolemia 19 FATHER 19 MOTHER G8 BROTHER G8 SISTER G8 SISTER Osteoporosis G8 SISTER Seizure disorder 19 FATHER Severe allergy G8 BROTHER G8 SISTER Thyroid disease 19 MOTHER G8 BROTHER G8 SISTER G8 SISTER No Family History of: AIDS Abdominal aortic aneurysm Vitor's disease Aphasia Asthma Cancer of mouth Colon cancer Congenital disease Coronary thrombosis Cystic fibrosis Drug abuse Dysphasia Glaucoma Headache disorder Hypertension Infertility Kidney disease Not obtainable due to adoption Parkinson's disease Prostate cancer Psychosocial problem Respiratory disorder Tuberculosis No Pertinent Family Hx PSH: -CYSTOSCOPY/URETHRAL DILATION/RETROGRADE DYE TEST 02/02/[address] GARCIA IN [place] Physical Exam Vital Signs Vital Signs - First Documented 10/26/22 20:02 Temp 36.8 Pulse 94 Resp 18 B/P (MAP) 150/90 (110) Pulse Ox 95 O2 Delivery Room Air Capillary Refill : Less Than 3 Seconds Height, Weight, BMI Height: 5'4.00" Weight: 165lbs. 0.0oz. 74.048301gi; 28.00 BMI Method:Stated General Appearance: WD/WN, no apparent distress, other (PT AMBULATES IN WITH HER WALKER. SHE IS KYPHOTIC. SHE TALKS NON-STOP AT GREAT LENGTH, DIFFICULT TO KEEP ON SUBJECT. SHE SEEMS TO HAVE SOME MILD MEMORY IMPAIRMENT. ) Neck: normal inspection Cardiovascular: regular rate, rhythm, no JVD, no murmur Respiratory: normal breath sounds, no respiratory distress, no accessory muscle use Gastrointestinal: non tender, soft Hips: bilateral hip non-tender Legs: bilateral leg non-tender, bilateral leg other (2+ EDEMA TO LOWER LEGS, A NKLES AND FEET, WITH DIFFUSE ERYTHEMA TO FEET AND TOES BILATERALLY, WITH MILDER / FAINT ERYTHEMA FROM ANKLES TO KNEES. THERE ARE PETECHIAE TO BILATERAL LOWER LEGS FROM ANKLES TO KNEES. MOTOR/SENSORY/VASCULAR IS INTACT. THERE ARE NO OPEN WOUNDS. NO SEEPING/OOZING FROM SKIN, THERE ARE NO BLISTERS, THERE IS NO URTICARIA. DISTRIBUTION IS EQUAL BILATERALLY, THERE IS NO TENDERNESS TO LEGS OR FEET. 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 THERE IS NO BRUISING ELSEWHERE ON BODY, THERE ARE NO PETECHIAE NOTED ELSEWHERE ON BODY. ) Progress/Results/Core Measures Results/Orders Lab Results Laboratory Tests Test 10/26/22 20:30 10/26/22 20:45 Range/Units Urine Color YELLOW Urine Clarity CLEAR Urine pH 7.5 5-9 Urine Specific Heth 1.010 L 1.016-1.022 Urine Protein NEGATIVE NEGATIVE Urine Glucose (UA) NEGATIVE NEGATIVE Urine Ketones TRACE H NEGATIVE Urine Nitrite NEGATIVE NEGATIVE Urine Bilirubin NEGATIVE NEGATIVE Urine Urobilinogen 0.2 < = 1.0 MG/DL Urine Leukocyte Esterase 1+ H NEGATIVE Urine RBC (Auto) TRACE-I H NEGATIVE Urine RBC 0-2 /HPF Urine WBC 0-2 /HPF Urine Squamous Epithelial Cells 5-10 /HPF Urine Crystals NONE /LPF Urine Bacteria MODERATE H /HPF Urine Casts NONE /LPF Urine Mucus NEGATIVE /LPF Urine Culture Indicated YES White Blood Count 7.8 4.3-11.0 10^3/uL Red Blood Count 4.07 3.80-5.11 10^6/uL Hemoglobin 12.7 11.5-16.0 g/dL Hematocrit 38 35-52 % Mean Corpuscular Volume 93 80-99 fL Mean Corpuscular Hemoglobin 31 25-34 pg Mean Corpuscular Hemoglobin Concent 34 32-36 g/dL Red Cell Distribution Width 12.5 10.0-14.5 % Platelet Count 284 130-400 10^3/uL Mean Platelet Volume 10.8 9.0-12.2 fL Immature Granulocyte % (Auto) 0 % Neutrophils (%) (Auto) 76 H 42-75 % Lymphocytes (%) (Auto) 19 12-44 % Monocytes (%) (Auto) 4 0-12 % Eosinophils (%) (Auto) 0 0-10 % Basophils (%) (Auto) 1 0-10 % Neutrophils # (Auto) 6.0 1.8-7.8 10^3/uL Lymphocytes # (Auto) 1.5 1.0-4.0 10^3/uL Monocytes # (Auto) 0.3 0.0-1.0 10^3/uL Eosinophils # (Auto) 0.0 0.0-0.3 10^3/uL Basophils # (Auto) 0.0 0.0-0.1 10^3/uL Immature Granulocyte # (Auto) 0.0 0.0-0.1 10^3/uL Prothrombin Time 13.0 12.2-14.7 SEC INR Comment 1.0 0.8-1.4 Activated Partial Thromboplast Time 45 H 24-35 SEC Sodium Level 131 L 135-145 MMOL/L Potassium Level 4.2 3.6-5.0 MMOL/L Chloride Level 97 L 98-107 MMOL/L Carbon Dioxide Level 23 21-32 MMOL/L Anion Gap 11 5-14 MMOL/L Blood Urea Nitrogen 9 7-18 MG/DL Creatinine 0.76 0.60-1.30 MG/DL Estimat Glomerular Filtration Rate 87 BUN/Creatinine Ratio 12 Glucose Level 111 H 70-105 MG/DL Calcium Level 9.0 8.5-10.1 MG/DL Corrected Calcium 8.8 8.5-10.1 MG/DL Total Bilirubin 0.3 0.1-1.0 MG/DL Aspartate Amino Transf (AST/SGOT) 18 5-34 U/L Alanine Aminotransferase (ALT/SGPT) 16 0-55 U/L Alkaline Phosphatase 72 40-136 U/L B-Type Natriuretic Peptide 342.5 H <100.0 PG/ML Total Protein 7.0 6.4-8.2 GM/DL Albumin 4.2 3.2-4.5 GM/DL Valproic Acid (Depakene) Level 75.4 50.0-100.0 UG/ML My Orders Orders - PROSPER BUTLER DO Ed Iv/Invasive Line Start (10/26/22 20:31) Monitor-Rhythm Ecg Trace Only (10/26/22 20:31) Bnp Gregory (10/26/22 20:31) Cbc With Automated Diff (10/26/22 20:31) Comprehensive Metabolic Panel (10/26/22 20:31) Protime With Inr (10/26/22 20:31) Partial Thromboplastin Time (10/26/22 20:31) Ua Culture If Indicated (10/26/22 20:31) Famotidine Injection (Pepcid Injection) (10/26/22 20:31) Diphenhydramine Injection (Benadryl Inje (10/26/22 20:31) Dexamethasone Injection (Decadron Inje (10/26/22 20:45) Valproic Acid (10/26/22 20:34) Urine Culture (10/26/22 20:30) Furosemide Injection (Lasix Injection) (10/26/22 22:00) Potassium Chloride (Tablet) (Klor Con Ta (10/26/22 22:00) Medications Given in ED Current Medications Medications Dose Ordered Sig/Jeff Route Start Time Stop Time Status Last Admin Dose Admin Dexamethasone Sodium Phosphate 10 mg ONCE ONCE IV 10/26/22 20:45 10/26/22 20:46 DC 10/26/22 20:39 10 MG Furosemide 40 mg ONCE ONCE IVP 10/26/22 22:00 10/26/22 22:01 DC 10/26/22 22:03 40 MG Potassium Chloride 20 meq ONCE ONCE PO 10/26/22 22:00 10/26/22 22:01 DC 10/26/22 22:03 20 MEQ Vital Signs/I&O 10/26/22 10/26/22 20:02 22:12 Temp 36.8 Pulse 94 86 Resp 18 13 B/P (MAP) 150/90 (110) 150/79 Pulse Ox 95 96 O2 Delivery Room Air Room Air Blood Pressure Mean: 110 Progress Progress Note : Progress Note BASIC LAB DONE CBC IS NORMAL--NO ANEMIA OR THROMBOCYTOPENIA. COAGULATION TESTS ARE NORMAL CMP SHOWS SLIGHTLY LOW SODIUM, AND MILDLY ELEVATED BNP PT HAS NO SIGNS / SYMPTOMS OF CHF. LUNGS ARE CLEAR, NO DYSPNEA, NO HYPOXIA. NO RESPIRATORY SYMPTOMS PT DOES TALK AT LENGTH ABOUT HER CHRONIC BACK AND NECK PAIN, AND ADMITS THAT SHE IS NOT ACTIVE SHE HAS BEEN--SITS MORE THAN SHE USED TO, WITH LEGS HANGING DOWN, CONTRIBUTING TO LEG EDEMA ADDITIONALLY SHE IS ON NSAIDS, WHICH COULD CONTRIBUTE TO LEG EDEMA/FLUID RETENTION. WILL ORDER LASIX + KCL FOR 3 DAYS, AND PT HAS AN APPOINTMENT WITH DR. ASHER ON SUNDAY. WILL DEFER ANY FURTHER CARE/ TREATMENT TO HER DISCUSSED TEST RESULTS, ANTICIPATED COURSE, SYMPTOMATIC TREATMENT AND RETURN PRECAUTIONS REVIEWED PRIOR RECORDS INCLUDING ER VISITS, ADMITS/H&P'S/CONSULTS/DISCHARGE SUMMARIES, TESTS/PROCEDURES Departure Impression Primary Impression: Dependent edema Additional Impression: UTI Disposition: HOME, SELF-CARE Condition: Stable Departure-Patient Inst. Decision time for Depature: 21:52 Referrals: CARISSA ASHER MD (PCP/Family) Primary Care Physician Patient Instructions: Dependent Edema (DC), Urinary Tract Infection, Adult (DC) Add. Discharge Instructions: INCREASE YOUR KEFLEX/CEPHALEXIN TO 500 MG 4 TIMES A DAY X 7 DAYS--NEW PRESCRIPTION SENT TO PHARMACY CONTINUE YOUR REGULAR MEDICATIONS PRESCRIBED ELEVATE YOUR LEGS MUCH POSSIBLE KEEP YOUR APPOINTMENT WITH DR. ASHER NEXT WEEK All discharge instructions reviewed with patient and/or family. Voiced understanding. Scripts Cephalexin (Cephalexin) 500 Mg Tablet 500 MG PO QID, #30 TAB 0 Refills Prov: LUKE,PROSPER K DO 10/26/22 Potassium Chloride (Potassium Chloride) 10 Meq Tab.er.prt 10 MEQ PO DAILY, #3 TAB Prov: LUKE,PROSPER K DO 10/26/22 Furosemide (Lasix) 20 Mg Tablet 20 MG PO DAILY, #3 TAB Prov: LUKE,PROSPER K DO 10/26/22 LUKE,PROSPER K DO October 26, 2022 21:19
[2022-10-26 21:27] LABS: ALBUMIN 4.2 GM/DL (3.2-4.5); BILIRUBIN,TOTAL 0.3 MG/DL (0.1-1.0); CREATININE SERUM 0.76 MG/DL (0.60-1.30); POTASSIUM 4.2 MMOL/L (3.6-5.0)
[2022-10-26 21:37] LABS: VALPROIC ACID 75.4 UG/ML (50.0-100.0)
[2022-10-26] MEDS ORDERED: FURO-125 PO (21:55)
[2022-10-26] MEDS ORDERED: POTA-177 PO (21:55)
[2022-10-26] MEDS ORDERED: KCL 10 MEQ TAB (MICRO K) PO ONE (22:00)
[2022-10-26] MEDS ORDERED: FUROSEMIDE 40 MG/4 ML INJ (LASIX) IVP ONE (22:00)
[2022-10-26 22:12] VITALS: BP 150/79
[2022-10-26] MEDS ORDERED: CEPH500T PO (22:22)
== END 2022-10-26 22:13 | disposition home or self-care (01) ==
LOC: EDUNIT# 19:49 → ER 19:51
DX: R60.9 Edema, unspecified (principal); N39.0 Urinary tract infection, site not specified; R79.89 Other specified abnormal findings of blood chemistry; G89.29 Other chronic pain; M54.2 Cervicalgia; M54.9 Dorsalgia, unspecified; F17.210 Nicotine dependence, cigarettes, uncomplicated; Z79.1 Long term (current) use of non-steroidal anti-inflammatories (NSAID); Z88.2 Allergy status to sulfonamides
CPT/HCPCS: 36415; 80053; 80164; 81000; 83880; 85025; 85610; 85730; 87077; 87088; 87186; 93041

== ENCOUNTER → 2022-10-30 | Outpatient (CLI) | payer MEDICARE, MEDICAID ==
[~2022-10-30] MED LIST changes: +FURO-125 PO; +POTA-177 PO
--- NOTE | 2022-10-30 12:14 | Diagnostic Imaging Report ---
PROCEDURE: MRI lumbar spine. TECHNIQUE: Multiplanar, multisequence MRI of the lumbar spine was performed without contrast. INDICATION: Fall. Back pain. History of compression deformity. COMPARISON: 12/03/2020. FINDINGS: For the purposes of this exam, last well-formed disc space is denoted the L5-S1 level. Evaluation of the static alignment shows levoscoliotic deformity at the thoracolumbar junction. AP static alignment also shows exaggerated kyphosis, but no significant toñito- or retro-listhesis. There is no evidence of jumped facets. Patient is status post previous L2 cement augmentation. There are multiple additional compression deformities of the lumbar spine. L1 and L3 compression deformities are noted. L1 and L3 vertebral body contours are stable when compared to 02/26/2021. Additionally, there is no significant marrow edema. Since the previous CT, there has been interval development of near vertebra plana of L5 involving both the superior and inferior endplates. There is height loss of the anterior and posterior vertebral body rodriguez as well. There is no retropulsion. There is small amount of vertebral body edema. This may be on the basis of subacute fracture. There is also multilevel intervertebral disc height loss. Visualized portions of the distal cord are unremarkable. Conus terminates at approximately the L1 level. No abnormal intrathecal filling defects are seen. Pre- and para-vertebral soft tissue structures are unremarkable. The axial images demonstrate the following: T12-L1: There is asymmetric posterior disc bulge on the right. This results in mild asymmetric narrowing of the right neural foramen. Spinal canal and left neural foramen are unremarkable. L1-L2: There is prominent right paracentric posterior disc protrusion as well as bilateral ligamentum flavum laxity and facet arthropathy. As a result, there is asymmetric stenosis of the right lateral recess and asymmetric moderate stenosis of the right neural foramen. There is also mild narrowing of the spinal canal and left neural foramen. L2-L3: There is broad-based posterior disc bulge with bilateral ligamentum flavum laxity and facet arthropathy. As a result, there is mild narrowing of the spinal canal and bilateral neural foramina. L3-L4: There is broad-based posterior disc bulge with bilateral ligamentum flavum laxity and facet arthropathy. As a result, there is fudc-gx-eernwqzr narrowing of the spinal canal and mild narrowing of the bilateral neural foramina. L4-L5: There is broad-based posterior disc bulge with bilateral ligamentum flavum laxity and facet arthropathy. As a result, there is moderate stenosis of the spinal canal and mild narrowing of the bilateral neural foramina. L5-S1: There is no large disc bulge or focal protrusion. There is bilateral facet arthropathy. There is, however, no significant spinal canal or neural foraminal stenosis. IMPRESSION: 1. Multiple compression deformities of the lumbar spine as described above. L5 level may be subacute in nature. Other vertebral body deformities are chronic. 2. Multilevel degenerative changes of the lumbar spine as described above. Dictated by: Dictated on workstation # [id number]
== END ==
LOC: RAD 09:06
PROVIDERS: ATTEND Nurse Practitioner Family
DX: M47.817 Spondylosis without myelopathy or radiculopathy, lumbosacral region (principal); M48.56XA Collapsed vertebra, not elsewhere classified, lumbar region, initial encounter for fracture; M51.26 Other intervertebral disc displacement, lumbar region; M48.061 Spinal stenosis, lumbar region without neurogenic claudication; W19.XXXA Unspecified fall, initial encounter
CPT/HCPCS: 72148

== ENCOUNTER → 2022-11-09 | Outpatient (CLI) | payer MEDICARE, MEDICAID ==
[~2022-11-09] MED LIST changes: +DENOSUMAB 60 MG/1 ML (PROLIA) SQ SCH
[2022-11-09 09:50] VITALS: BP 147/67
== END ==
LOC: SDC 09:29
PROVIDERS: ATTEND Family Medicine
DX: M81.0 Age-related osteoporosis without current pathological fracture (principal)
CPT/HCPCS: 96372

== ENCOUNTER 2022-12-04 | Emergency (ER) | payer MEDICARE, MEDICAID ==
[~2022-12-04] VITALS: Ht 160 cm; Wt 72.6 kg
[~2022-12-04] MED LIST changes: -DENOSUMAB 60 MG/1 ML (PROLIA) SQ SCH
[2022-12-04] MEDS ORDERED: LIDOCAINE UROJET 2% GEL 10 ML PKG TOP ONE (00:30)
[2022-12-04] MEDS ORDERED: TETANUS,DIPTH,PERTUSS P/F (BOOSTRIX) 0.5 ML VIAL IM ONE (00:30)
[2022-12-04 00:38] LABS: BILIRUBIN,URINE NEGATIVE (NEGATIVE); CLARITY,URINE CLEAR; COLOR,URINE YELLOW; GLUCOSE, URINE (UA) NEGATIVE (NEGATIVE); KETONES,URINE NEGATIVE (NEGATIVE); LEUKOCYTE ESTERASE ,URINE 2+ (NEGATIVE); NITRITE,URINE POSITIVE (NEGATIVE); PROTEIN,URINE NEGATIVE (NEGATIVE)
[2022-12-04 00:38] LABS: BASOPHILS # (AUTO) 0.1 10^3/uL (0.0-0.1); BASOPHILS % (AUTO) 1 % (0-10); EOSINOPHILS % (AUTO) 0 % (0-10); HEMATOCRIT 39 % (35-52); HEMOGLOBIN 13.1 g/dL (11.5-16.0); LYMPHOCYTES # (AUTO) 3.3 10^3/uL (1.0-4.0); LYMPHOCYTES % (AUTO) 30 % (12-44); MEAN CORPUSCULAR HEMOGLOBIN 31 pg (25-34); MEAN CORPUSCULAR HGB CONC 34 g/dL (32-36); MEAN CORPUSCULAR VOLUME 93 fL (80-99); MEAN PLATELET VOLUME 9.6 fL (9.0-12.2); MONOCYTES # (AUTO) 1.1 10^3/uL (0.0-1.0); MONOCYTES % (AUTO) 10 % (0-12); NEUTROPHILS # (AUTO) 6.4 10^3/uL (1.8-7.8); NEUTROPHILS % (AUTO) 58 % (42-75); PLATELET COUNT 357 10^3/uL (130-400); WHITE BLOOD COUNT 11.1 10^3/uL (4.3-11.0)
[2022-12-04 00:39] LABS: CHLORIDE 92 MMOL/L (98-107); SODIUM 128 MMOL/L (135-145)
[2022-12-04 00:40] LABS: ALBUMIN 4.2 GM/DL (3.2-4.5)
[2022-12-04 00:41] LABS: CALCIUM 9.7 MG/DL (8.5-10.1)
[2022-12-04 00:42] LABS: GLUCOSE 96 MG/DL (70-105); TOTAL PROTEIN 6.8 GM/DL (6.4-8.2)
[2022-12-04 00:43] LABS: CARBON DIOXIDE 26 MMOL/L (21-32)
[2022-12-04 00:44] LABS: BILIRUBIN,TOTAL 0.2 MG/DL (0.1-1.0)
[2022-12-04 00:46] LABS: ALKALINE PHOSPHATASE 91 U/L (40-136); CREATININE SERUM 0.74 MG/DL (0.60-1.30); GFR ESTIMATED 90
[2022-12-04 00:47] LABS: BUN/CREATININE RATIO 18
[2022-12-04 00:48] LABS: INR 0.9 (0.8-1.4); MAGNESIUM 2.1 MG/DL (1.6-2.4); PROTHROMBIN TIME PATIENT 12.1 SEC (12.2-14.7)
[2022-12-04 00:49] LABS: ALANINE AMINOTRANSFERASE 12 U/L (0-55)
[2022-12-04 00:53] LABS: BACTERIA,URINE LARGE /HPF; RBC,URINE 0-2 /HPF; WBC,URINE 25-50 /HPF
[2022-12-04 00:59] LABS: ACETAMINOPHEN < 10 UG/ML (10-30)
[2022-12-04 01:00] LABS: AMPHETAMINE SCREEN, URINE NEGATIVE (NEGATIVE); BARBITURATE SCREEN URINE NEGATIVE (NEGATIVE); BENZODIAZEPINES SCREEN URINE NEGATIVE (NEGATIVE); CANNABINOID SCREEN, URINE NEGATIVE (NEGATIVE); COCAINE SCREEN URINE NEGATIVE (NEGATIVE); METHADONE STAT NEGATIVE (NEGATIVE); OPIATE SCREEN URINE NEGATIVE (NEGATIVE); OXYCODONE STAT NEGATIVE (NEGATIVE); PROPOXYPHENE STAT NEGATIVE (NEGATIVE); TRICYCLIC ANTIDEPRESSANTS SCRE NEGATIVE (NEGATIVE)
[2022-12-04] MEDS ORDERED: fentaNYL INJ 100 MCG/2 ML AMP IVP ONE ×2 (02:00→03:00)
[2022-12-04] MEDS ORDERED: fentaNYL INJ 100 MCG/2 ML AMP ONE (02:01)
[2022-12-04] MEDS ORDERED: cefTRIAXone IV/IM 1,000 MG in NS (IVPB) 50 ML IV ONE (03:00)
[2022-12-04 03:35] VITALS: BP 161/58
--- NOTE | 2022-12-04 07:00 | Diagnostic Imaging Report ---
CHEST 1 VIEW, AP/PA ONLY Indication: Rib pain after fall Comparison: 08/12/2014 Findings: No focal airspace disease in the visualized lungs. No pleural effusion or pneumothorax. Normal cardiomediastinal silhouette. Impression: 1. No acute cardiopulmonary process by portable radiography. Dictated by: Dictated on workstation # [id number]
--- NOTE | 2022-12-04 07:01 | ED Fall/Injury ---
General Chief Complaint: Trauma-Non Activation Stated Complaint: FALL,RIB PAIN Nursing Triage Note: pt to room by [facility]. ems reports pt fell in bathroom and has pain to her right side ribs. pt reports it feels like something poking her in the side on the inhale. pt reports she was standing up from the toilet when she lost balance and fell onto the shower lip, hitting her right ribs. pt has skin tear to right elbow and skin tear to left wrist. pt denies blood thinner use, denies head injury or LOC, denies head, neck, back pain. pt is A&Ox4, speech normal on arrival Source: patient History of Present Illness Date Seen by Provider: Dec 04, 2022 Time Seen by Provider: 00:05 Initial Comments PT ARRIVES VIA EMS FROM HOME PT THAT SHE WAS GETTING OFF THE TOILET AND LOST HER BALANCE AND FELL BACKWARD, AND LANDED ON THE EDGE OF THE WALK IN SHOWER. C/O PAIN TO RIGHT RIBS--STATES IT FEELS LIKE SOMETHING IS POKING HER WHEN SHE BREATHES OR MOVES C/O DIFFUSE MID AND LOWER BACK PAIN AND RIGHT FLANK PAIN SHE ALSO C/O PAIN TO HER BUTTOCKS --STATES IT FEELS LIKE SOMETHING IS POKING HER. SHE HAS BRUISING TO BOTH HANDS AND FOREARMS AND SKIN TEARS TO RIGHT ELBOW AND LEFT HAND. PT DID NOT HIT HER HEAD OR HAVE LOSS OF CONSCIOUSNESS DENIES NECK PAIN PT IS NOT ON ASPIRIN OR BLOOD THINNERS. NO PARESTHESIAS OR MOTOR DEFICITS NO LOSS OF BOWEL OR BLADDER CONTROL. PT HAS CHRONIC BACK PAIN AND NECK PAIN SHE HAS HAD PRIOR CERVICAL SPINE SURGERY / FUSION SHE HAS HAD COMPRESSION FRACTURES AND HAD L2 VERTEBROPLASTY DONE BY DR. CHIN WITH [facility] STATES 11/2020. SHE SEES DR. MENDOZA WITH THEIR GROUP WELL SHE SEES DR. ALFREDO WITH THEIR GROUP FOR PAIN MANAGEMENT, AND SHE PUT A BACLOFEN PUMP IN MARCH 2022. PCP: DR. ASHER Allergies and Home Medications Allergies Coded Allergies: iodine (Verified Allergy, Severe, HIVES, 05/24/19) morphine (Verified Allergy, Severe, HIVES, 05/24/19) hydrocodone (Verified Allergy, Intermediate, Itching, 05/24/19) hydromorphone (Verified Allergy, Unknown, 02/26/21) sulfamethoxazole (Verified Allergy, Unknown, 02/26/21) trimethoprim (Verified Allergy, Unknown, 02/26/21) Patient Home Medication List Home Medication List Reviewed: Yes Baclofen (Baclofen) 20 Mg Tablet, 20 MG PO BID PRN for MUSCLE SPASMS, (Reported) Entered as Reported by: LSIA MACHADO on 03/18/18 1333 Bupropion HCl (Wellbutrin Xl) 300 Mg Tab.er.24h, 300 MG PO DAILY, (Reported) Entered as Reported by: SONDRA DE LA PAZ on 05/24/19 0458 C,E,Zinc,Copper 11/Vbuuz1z/Lut (Ocuvite Adult 50 Plus Softgel) 1 Each Capsule, 1 EACH PO DAILY, (Reported) Entered as Reported by: MARILOU GONZALEZ on 05/26/19 0850 Calcium Carbonate (Calcium) 600 Mg Tablet, 1,200 MG PO DAILY, (Reported) Entered as Reported by: MARILOU GONZALEZ on 05/26/19 0850 Cefdinir (Cefdinir) 300 Mg Capsule, 300 MG PO BID Prescribed by: PROSPER BUTLER on 02/26/21 0911 Cephalexin (Cephalexin) 500 Mg Tablet, 500 MG PO TID Prescribed by: THO CASTRO on 12/03/20 1028 Cephalexin (Cephalexin) 500 Mg Tablet, 500 MG PO QID Prescribed by: PROSPER BUTLER on 10/26/22 2222 Cholecalciferol (Vitamin D3) (Vitamin D) 1,000 Unit Tablet, 3,000 UNIT PO DAILY, (Reported) Entered as Reported by: LISA MACHADO on 03/18/18 1259 Ciprofloxacin HCl (Ciprofloxacin HCl) 500 Mg Tablet, 500 MG PO BID Prescribed by: GREG SNOW on 11/27/19 1200 Dicyclomine HCl (Dicyclomine HCl) 20 Mg Tablet, 20 MG PO TID, (Reported) Entered as Reported by: MARILOU GONZALEZ on 05/26/19 0853 Divalproex Sodium (Divalproex Sodium ER) 500 Mg Tab.er.24h, 1,000 MG PO HS, (Reported) Entered as Reported by: MARILOU GONZALEZ on 05/26/19 0847 Docusate Sodium (Colace) 100 Mg Capsule, 100 MG PO DAILY Prescribed by: THO CASTRO on 12/03/20 1028 Estradiol (Estradiol Tablet) 2 Mg Tablet, 2 MG PO DAILY, (Reported) Entered as Reported by: LISA MACHADO on 05/05/15 1237 Estradiol (Vagifem) 10 Mcg Tablet, 10 MCG VG MoFr, (Reported) Entered as Reported by: KERRIE ZABALA on 03/26/18 1137 Furosemide (Lasix) 20 Mg Tablet, 20 MG PO DAILY Prescribed by: PROSPER BUTLER on 10/26/22 2155 Gabapentin (Gabapentin) 300 Mg Capsule, 300 MG PO BID, (Reported) Entered as Reported by: LISA MACHADO on 03/18/18 1333 Hydroxyzine HCl (Hydroxyzine HCl) 10 Mg Tablet, 10 MG PO TID PRN for ANXIETY, (Reported) Entered as Reported by: LEBRON FLORES on 11/03/16 1033 Ibuprofen (Ibuprofen) 600 Mg Tablet, 600 MG PO Q6H PRN for PAIN-MILD, (Reported) Entered as Reported by: LISA MACHADO on 03/18/18 1333 L.acidoph & Paracasei,B.lactis (Probiotic) 1 Each Capsule, 1 EACH PO DAILY, (Reported) Entered as Reported by: MARILOU GONZALEZ on 05/26/19 0850 Levocetirizine Dihydrochloride (Levocetirizine Dihydrochloride) 5 Mg Tablet, 5 MG PO HS, (Reported) Entered as Reported by: KERRIE ZABALA on 03/26/18 1137 Levomilnacipran Hydrochloride (Fetzima) 120 Mg Cap.sa.24h, 120 MG PO DAILY, (Reported) Entered as Reported by: LEBRON FLORES on 11/03/16 1033 Methocarbamol (Methocarbamol) 750 Mg Tablet, 750 MG PO Q6-8HR Prescribed by: AMOS VAZQUEZ on 11/29/20 1402 Mometasone Furoate (Mometasone Furoate) 17 Gm [place].pump, 1 SPRAY NSEACH DAILY, (Reported) Entered as Reported by: MARILOU GONZALEZ on 05/26/19 0847 Multivitamins-Min/FA/Ginkgo (One Daily For Women 50+ Adv Tb) 1 Each Tablet, 1 EACH PO DAILY, (Reported) Entered as Reported by: MARILOU GONZALEZ on 05/26/19 0850 Oxycodone HCl/Acetaminophen (Percocet 5-325 mg Tablet) 1 Each Tablet, 1 TAB PO Q4H Prescribed by: THO CASTRO on 12/03/20 1029 Oxycodone HCl/Acetaminophen (Oxycodone-Acetaminophen 5-325) 1 Each Tablet, 1 EACH PO Q4H PRN for PAIN-SEVERE Prescribed by: DEMETRIUS RUBIO on 01/17/21 1622 Pantoprazole Sodium (Pantoprazole Sodium) 40 Mg Tablet.dr, 40 MG PO DAILY, (Reported) Entered as Reported by: MARILOU GONZALEZ on 05/26/19 0857 Phenazopyridine HCl (Pyridium) 100 Mg Tablet, 100 MG PO Q8H PRN for SPASMS Prescribed by: GREG SNOW on 11/27/19 1237 Phenazopyridine HCl (Pyridium) 200 Mg Tablet, 1 TAB PO TID Prescribed by: PROSPER BUTLER on 02/26/21 0911 Polyethylene Glycol 3350 (Miralax) 17 Gm Powd.pack, 17 GM PO PRN, (Reported) Entered as Reported by: KERRIE ZABALA on 03/26/18 1137 Potassium Chloride (Potassium Chloride) 10 Meq Tab.er.prt, 10 MEQ PO DAILY Prescribed by: PROSPER BUTLER on 10/26/22 2155 Selenomethionine (Selenium) 200 Mcg Tablet, 200 MCG PO DAILY, (Reported) Entered as Reported by: MARILOU GONZALEZ on 05/26/19 0850 Simethicone (Gas-X) 125 Mg Tab.chew, 125 MG PO PRN PRN for GAS, (Reported) Entered as Reported by: MARILOU GONZALEZ on 05/26/19 0850 Tramadol HCl (Tramadol HCl) 50 Mg Tablet, 50 MG PO Q6H PRN for PAIN-MILD (1-4), (Reported) Entered as Reported by: SONDRA DE LA PAZ on 05/24/19 0452 Review of Systems Review of Systems Constitutional: no symptoms reported Respiratory: no symptoms reported Cardiovascular: no symptoms reported Gastrointestinal: no symptoms reported Genitourinary: no symptoms reported Musculoskeletal: see HPI Skin: see HPI Psychiatric/Neurological: No Symptoms Reported; Denies Headache, Denies Numbness, Denies Paresthesia, Denies Tingling, Denies Weakness Past Drogzbc-Pllcil-Ppticp Hx Patient Social History Tobacco Use?: Yes Tobacco type used: Cigarettes Smoking Status: Current Everyday Smoker Use of E-Cig and/or Vaping dev: No Substance use?: No Alcohol Use?: No Immunizations Up To Date Tetanus Booster (TDap): More than 5yrs PED Vaccines UTD: No Influenza Vaccine Up-to-Date: Yes; Up-to-Date First/Initial COVID19 Vaccinat: X3 Second COVID19 Vaccination Kenneth: X3 Third COVID19 Vaccination Date: X3 Seasonal Allergies Seasonal Allergies: Yes Past Medical History Surgery/Hospitalization HX: CERVICAL SPINE FUSION, CHOLECYSTECTOMY, APPENDECTOMY, HYSTERECTOMY/BILATERAL SALPINGO-OOPHORECTOMY, TONSILLECTOMY/ADENOIDECTOMY, BLADDER SUSPENSION, CYSTOCOELE/RECTOCOELE REPAIR, CYSTOSCOPIES/URETHRAL DILATION, KYPHOPLASTY L2 11/[address] 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, Menopausal Sexually Transmitted Disease: No HIV/AIDS: No Genitourinary: Yes (BLADDER SURGERY) Bladder Infection, UTI-Chronic Gastrointestinal: Yes Gastroesophageal Reflux, Diverticulosis, Polyps, Irritable Bowel Musculoskeletal: Yes (SPINAL STENOSIS;T12-L3 COMP FX'S;C-SPINE SURGERY;COMP FX'S) Degenerate Disk Disease, Osteoporosis, Arthritis, Fibromyalgia, Chronic Back Pain, Fractures Endocrine: No HEENT: Yes Cataract Loss of Vision: Bilateral Hearing Impairment: Denies Cancer: No Psychosocial: Yes (OD/SUICIDE ATTEMPT 2013) Anxiety, Suicide Attempts, Bipolar, Depression Integumentary: No Blood Disorders: No Adverse Reaction/Blood Tranf: No (N/A) Family Medical History Alcoholism 19 FATHER Alzheimer's disease 19 MOTHER Arthritis 19 FATHER 19 MOTHER Cardiovascular disease 19 FATHER (massive heart attack) 19 MOTHER (Mitrial valve prolapse, Stroke Multi.) Cataracts G8 SISTER Completed stroke 19 MOTHER Deafness or hearing loss G8 SISTER Dementia 19 MOTHER Diabetes mellitus 19 MOTHER Fibrocystic disease of breast G8 SISTER Hypercholesterolemia 19 FATHER 19 MOTHER G8 BROTHER G8 SISTER G8 SISTER Osteoporosis G8 SISTER Seizure disorder 19 FATHER Severe allergy G8 BROTHER G8 SISTER Thyroid disease 19 MOTHER G8 BROTHER G8 SISTER G8 SISTER No Family History of: AIDS Abdominal aortic aneurysm [place]'s disease Aphasia Asthma Cancer of mouth Colon cancer Congenital disease Coronary thrombosis Cystic fibrosis Drug abuse Dysphasia Glaucoma Headache disorder Hypertension Infertility Kidney disease Not obtainable due to adoption Parkinson's disease Prostate cancer Psychosocial problem Respiratory disorder Tuberculosis No Pertinent Family Hx SOCIAL HISTORY: -SMOKES 1 PPD -ETOH-DENIES USE -DRUGS-DENIES USE PAST SURGICAL HISTORY: -CERVICAL SPINE FUSION -CHOLECYSTECTOMY -APPENDECTOMY -HYSTERECTOMY/BILATERAL SALPINGO-OOPHORECTOMY -TONSILLECTOMY/ADENOIDECTOMY -BLADDER SUSPENSION -CYSTOCOELE/RECTOCOELE REPAIRCYSTOSCOPIES/URETHRAL DILATIONS -KYPHOPLASTY L2 11/[address] CHIN AT [place] [id number]-STATES -CYSTOSCOPY/URETHRAL DILATION/RETROGRADE DYE TEST 02/02/[address] GARCIA IN [place] Physical Exam Vital Signs Vital Signs - First Documented 12/04/22 00:03 Temp 35.9 Pulse 77 Resp 20 B/P (MAP) 136/84 (101) Pulse Ox 100 O2 Delivery Room Air Capillary Refill : Height, Weight, BMI Height: 5'4.00" Weight: 165lbs. 0.0oz. 74.601255gd; 28.00 BMI Method:Stated General Appearance: WD/WN, other (LOOKS UNCOMFORTABLE; REEKS OF CIGARETTES. ) HEENT: PERRL/EOMI, normal ENT inspection Neck: non-tender, full range of motion, supple, normal inspection Cardiovascular: regular rate, rhythm, no murmur Respiratory: normal breath sounds, no respiratory distress, no accessory muscle use, other (RIGHT LATERAL AND POSTERIOR CHEST WALL TENDERNESS) Peripheral Pulses: 1+ Dorsalis Pedis (R), 1+ Left Dors-Pedis (L) Gastrointestinal: non tender, soft Back: decreased range of motion, other (DIFFUSE BACK TENDERNESS FROM MID THORACIC AREA DOWN TO SACRUM; RIGHT POSTERIOR CHEST AND RIGHT FLANK TENDERNESS, WITH A 2 X 5 CM BRUISE TO RIGHT FLANK AREA. THERE IS NO SUB Q CREPITANCE. NO GROSS DEFORMITY. PT IS KYPHOTIC. ) Extremities: normal range of motion, normal capillary refill, pedal edema (1-2+ EDEMA TO FEET AND ANKLES, WITH DIFFUSE ERYTHEMA TO BOTH FEET. GOOD CAPILLARY REFILL. MOTOR / SENSORY / VASCULAR INTACT. ), other (NO TENDERNESS TO LEGS; LARGE SKIN TEAR TO RIGHT ELBOW, SMALL SKIN TEAR TO DORSUM OF LEFT HAND. BILATERAL FOREARMS WITH PATCHY ECCHYMOSIS. 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 Dom Coma Score Best Eye Response: (4) Open Spontaneously Best Verbal Response: (5) Oriented Best Motor Response: (6) Obeys Commands Dom Total: 15 Progress/Results/Core Measures Results/Orders Lab Results Laboratory Tests Test 12/04/22 00:16 12/04/22 00:32 Range/Units White Blood Count 11.1 H 4.3-11.0 10^3/uL Red Blood Count 4.21 3.80-5.11 10^6/uL Hemoglobin 13.1 11.5-16.0 g/dL Hematocrit 39 35-52 % Mean Corpuscular Volume 93 80-99 fL Mean Corpuscular Hemoglobin 31 25-34 pg Mean Corpuscular Hemoglobin Concent 34 32-36 g/dL Red Cell Distribution Width 12.2 10.0-14.5 % Platelet Count 357 130-400 10^3/uL Mean Platelet Volume 9.6 9.0-12.2 fL Immature Granulocyte % (Auto) 1 % Neutrophils (%) (Auto) 58 42-75 % Lymphocytes (%) (Auto) 30 12-44 % Monocytes (%) (Auto) 10 0-12 % Eosinophils (%) (Auto) 0 0-10 % Basophils (%) (Auto) 1 0-10 % Neutrophils # (Auto) 6.4 1.8-7.8 10^3/uL Lymphocytes # (Auto) 3.3 1.0-4.0 10^3/uL Monocytes # (Auto) 1.1 H 0.0-1.0 10^3/uL Eosinophils # (Auto) 0.0 0.0-0.3 10^3/uL Basophils # (Auto) 0.1 0.0-0.1 10^3/uL Immature Granulocyte # (Auto) 0.1 0.0-0.1 10^3/uL Prothrombin Time 12.1 L 12.2-14.7 SEC INR Comment 0.9 0.8-1.4 Activated Partial Thromboplast Time 38 H 24-35 SEC Sodium Level 128 L 135-145 MMOL/L Potassium Level 4.0 3.6-5.0 MMOL/L Chloride Level 92 L 98-107 MMOL/L Carbon Dioxide Level 26 21-32 MMOL/L Anion Gap 10 5-14 MMOL/L Blood Urea Nitrogen 13 7-18 MG/DL Creatinine 0.74 0.60-1.30 MG/DL Estimat Glomerular Filtration Rate 90 BUN/Creatinine Ratio 18 Glucose Level 96 70-105 MG/DL Calcium Level 9.7 8.5-10.1 MG/DL Corrected Calcium 9.5 8.5-10.1 MG/DL Magnesium Level 2.1 1.6-2.4 MG/DL Total Bilirubin 0.2 0.1-1.0 MG/DL Aspartate Amino Transf (AST/SGOT) 12 5-34 U/L Alanine Aminotransferase (ALT/SGPT) 12 0-55 U/L Alkaline Phosphatase 91 40-136 U/L Total Protein 6.8 6.4-8.2 GM/DL Albumin 4.2 3.2-4.5 GM/DL Acetaminophen Level < 10 L 10-30 UG/ML Serum Alcohol < 10 <10 MG/DL Urine Color YELLOW Urine Clarity CLEAR Urine pH 6.0 5-9 Urine Specific [place] 1.010 L 1.016-1.022 Urine Protein NEGATIVE NEGATIVE Urine Glucose (UA) NEGATIVE NEGATIVE Urine Ketones NEGATIVE NEGATIVE Urine Nitrite POSITIVE H NEGATIVE Urine Bilirubin NEGATIVE NEGATIVE Urine Urobilinogen 0.2 < = 1.0 MG/DL Urine Leukocyte Esterase 2+ H NEGATIVE Urine RBC (Auto) TRACE-I H NEGATIVE Urine RBC 0-2 /HPF Urine WBC 25-50 H /HPF Urine Crystals NONE /LPF Urine Bacteria LARGE H /HPF Urine Casts NONE /LPF Urine Mucus NEGATIVE /LPF Urine Culture Indicated YES Urine Opiates Screen NEGATIVE NEGATIVE Urine Oxycodone Screen NEGATIVE NEGATIVE Urine Methadone Screen NEGATIVE NEGATIVE Urine Propoxyphene Screen NEGATIVE NEGATIVE Urine Barbiturates Screen NEGATIVE NEGATIVE Ur Tricyclic Antidepressants Screen NEGATIVE NEGATIVE Urine Phencyclidine Screen NEGATIVE NEGATIVE Urine Amphetamines Screen NEGATIVE NEGATIVE Urine Methamphetamines Screen NEGATIVE NEGATIVE Urine Benzodiazepines Screen NEGATIVE NEGATIVE Urine Cocaine Screen NEGATIVE NEGATIVE Urine Cannabinoids Screen NEGATIVE NEGATIVE My Orders Orders - PROSPER BUTLER DO Ed Iv/Invasive Line Start (12/04/22 00:25) Catheter(Urinary) Insert & Ass 03,15 (12/04/22 00:25) O2 (12/04/22 00:25) Monitor-Rhythm Ecg Trace Only (12/04/22:25) Chest 1 View, Ap/Pa Only (12/04/22:) Pelvis 1 To 2 Views (12/04/22:) Acetaminophen (12/04/22) Alcohol (12/04/22:25) Cbc With Automated Diff (12/04/22:25) Comprehensive Metabolic Panel (12/04/22:) Drug Screen Stat (Urine) (12/04/22:) Magnesium (12/04/22:25) Protime With Inr (12/04/22:25) Partial Thromboplastin Time (12/04/22 00:25) Ua Culture If Indicated (12/04/22:) Dipht,Pertuss(Acell),Tet Adult (Boostrix (12/04/22 00:30) Wound Dressing-Ed (12/04/22 00:25) Lidocaine 2% (Urojet) (Xylocaine Urojet) (12/04/22 00:30) Ct Head/Cervical Spine Wo (12/04/22 00:25) Ct Thoracic/Lumbar Spine Wo (12/04/22 00:25) Ct Chest/Abdomen/Pelvis Wo (12/04/22 00:25) Urine Culture (12/04/22 00:32) Fentanyl Inj (Sublimaze Injection) (12/04/22 02:00) Fentanyl Inj (Sublimaze Injection) (12/04/22 02:01) Ceftriaxone Iv/Im (Rocephin Iv/Im) (12/04/22 03:00) Fentanyl Inj (Sublimaze Injection) (12/04/22 03:00) Medications Given in ED Current Medications Medications Dose Ordered Sig/Jeff Route Start Time Stop Time Status Last Admin Dose Admin Ceftriaxone Sodium 1000 mg/ Sodium Chloride 50 ml @ 100 mls/hr ONCE ONCE IV 12/04/22 03:00 12/04/22 03:29 DC 12/04/22 03:23 100 MLS/HR Diphtheria/ Tetanus/Acell Pertussis 0.5 ml ONCE ONCE IM 12/04/22 00:30 12/04/22 00:31 DC 12/04/22 02:09 0.5 ML Fentanyl Citrate 50 mcg ONCE ONCE IVP 12/04/22 02:00 12/04/22 02:01 DC 12/04/22 02:07 50 MCG Fentanyl Citrate 50 mcg ONCE ONCE IVP 12/04/22 03:00 12/04/22 03:01 DC 12/04/22 03:45 50 MCG Vital Signs/I&O 12/04/22 12/04/22 00:03 03:35 Temp 35.9 Pulse 77 82 Resp 20 24 B/P (MAP) 136/84 (101) 161/58 Pulse Ox 100 95 O2 Delivery Room Air Blood Pressure Mean: 92 Progress Progress Note : Progress Note GIVEN: -IV FLUIDS -PAIN MEDICATIONS -DPT VACCINE -ROCEPHIN FOR UTI NO DETERIORATION IN PT'S CONDITION DURING ER STAY VITALS STABLE PT REMAINS NEUROLOGICALLY INTACT. LABS INCLUDING CBC, CMP, UA DONE UA SHOWS UTI WITH LARGE BACTERIA, WBC 25-50, 2+ LEUKOCYTES, + NITRITES OTHER LAB IS UNREMARKABLE CT HEAD/CERVICAL SPINE, CT THORACIC/LUMBAR SPINE, AND CT CHEST/ABDOMEN/PELVIS, WELL CXR AND PELVIS XRAYS ORDERED MULTIPLE COMPRESSION FRACTURES OF VARIOUS AGES NOTED, WELL COME ACUTE. ALSO HAS MULTIPLE ACUTE LUMBAR TRANSVERSE PROCESS FRACTURES DISCUSSED TEST RESULTS AND NEED FOR TRANSFER TO FACILITY WITH SPINE SURGERY CAPABILITY, AND PT IS AGREEABLE TO PLAN. REVIEWED PRIOR RECORDS, PT WAS SEEN HERE 10/26/22 FOR LEG EDEMA. SHE WAS ALSO NOTED TO HAVE A UTI AT THAT TIME AND WAS TREATED WITH KEFLEX--URINE CULTURE GREW OUT E. COLI THAT WAS PANSENSITIVE. REVIEWED PRIOR ER VISITS, ADMITS/H&P'S/CONSULTS/DISCHARGE SUMMARIES, TESTS / PROCEDURES Diagnostic Imaging Comments CXR--NO ACUTE PROCESS, PENDING RADIOLOGIST REVIEW PELVIS XRAY--NO ACUTE PROCESS, PENDING RADIOLOGIST REVIEW CT HEAD / CERVICAL SPINE--PER [facility] VIA FAX AT 9370 -NO ACUTE FINDING IN CT HEAD -QUESTIONABLE FRACTURE THROUGH LARGE LATERAL BRIDGING SYNDESMOPHYTES OF THE LEFT FACET JOINT AT C4-C5. 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 -C5-C7 ANTERIOR SPINAL FUSION HARDWARE IS IN PLACE CT THORACIC / LUMBAR SPINE--PER [facility] VIA FAX AT 0225 ( COMPARISON OF MRI OF LUMBAR SPINE 10/30/22 ) -NO MALALIGNMENT OR ACUTE FRACTURE OF THORACIC SPINE -NEW SPINAL STIMULATION DEVICE IN PLACE -NEW ACUTE FRACTURES OF THE LEFT LATERAL PROCESSES OF L1 AND L2, AND OF THE RIGHT LATERAL PROCESSES OF L2 AND L3 -NEW SEVERE COMPRESSION FRACTURE DEFORMITY OF L3, UNCERTAIN ACUITY -L2 VERTEBROPLASTY WITH EXTRAVASATION OF CEMENT INTO THE SPINAL CANAL AND SEVERE SPINAL CANAL STENOSIS AT L1-L2 BEFORE -NO MALALIGNMENT CT CHEST / ABDOMEN / PELVIS--PER [facility] VIA FAX AT 0225 -NON-DISPLACED RIGHT 12 AND T11 FRACTURES -NO ACUTE CHEST FINDING -NO ACUTE ABDOMINOPELVIC FINDING -NO FRACTURE SEEN -NO ACUTE FINDING Reviewed: Reviewed by Oh Departure Communication (Admissions) 0245--SPOKE WITH DR. SCOTT, TRAUMA SURGEON, HE ADVISES TRANSFER TO FACILITY WITH SPINE SURGERY CAPABILITIES 0249--CALLED [facility] JONO 0255--SPOKE WITH DR. JARA, ER PHYSICIAN AT [facility]. ACCEPTS PT FOR TRANSFER. Impression Primary Impression: Fall from standing Additional Impressions: MULTLIPLE COMPRESSION FRACTURES T11-L3 LUMBAR SPINE TRANSVERSE PROCESS FRACTURES Chronic neck and back pain SKIN TEAR OF RIGHT ELBOW SKIN TEAR OF LEFT HAND Multiple contusions UTI (urinary tract infection) Disposition: 02 XFER [facility] Condition: Stable Transfer Transfer Reason: Exceeds level of care (NEED FOR SPINE SURGERY SERVICES UNAVAILABLE HERE) Transfer Facility: [facility] Method of Transfer: EMS Departure-Patient Inst. Referrals: CARISSA ASHER MD (PCP) Primary Care Physician PROSPER BUTLER DO Dec 04, 2022 07:01
--- NOTE | 2022-12-04 07:01 | Diagnostic Imaging Report ---
PELVIS 1 TO 2 VIEWS INDICATION: Trauma COMPARISON: CT abdomen pelvis performed concurrently. TECHNIQUE: AP view of the pelvis. FINDINGS: No diastases of the symphysis pubis or SI joints. No hip dislocation. No acute displaced fracture within the pelvis is appreciated. Prior vertebral augmentation of L2. IMPRESSION: No acute displaced fracture or traumatic malalignment. Dictated by: Dictated on workstation # [id number]
--- NOTE | 2022-12-04 07:15 | Diagnostic Imaging Report ---
PROCEDURE: CT chest, abdomen, and pelvis without contrast. TECHNIQUE: Multiple contiguous axial images were obtained through the chest, abdomen, and pelvis without the use of intravenous contrast. Auto Exposure Controls were utilized during the CT exam to meet ALARA standards for radiation dose reduction. INDICATION: Trauma. COMPARISON: CT thoracic and lumbar spine performed concurrently. FINDINGS: There is slight contour irregularity along the outer cortex of the right 11th and 12th ribs that suggest nondisplaced fractures. No other fracture within the right ribs. No pleural effusion or pneumothorax. No pulmonary contusion or laceration. No supraclavicular or axillary lymphadenopathy. No mediastinal lymphadenopathy. No features of mediastinal hemorrhage. The heart is normal in size. Normal caliber thoracic aorta. By noncontrast imaging, there are no features of acute liver injury. Spleen and pancreas are grossly normal. Cholecystectomy. No adrenal mass. No renal or ureteral stones. No perinephric fluid collection. Urinary bladder is partially filled with fluid and has a Lynch catheter in place. Stomach is decompressed. No dilated loops of bowel indicate bowel obstruction. No pericolonic inflammatory change. No free intraperitoneal air or fluid. No acute fracture within the pelvis. IMPRESSION: 1. Potential nondisplaced fractures of the right 11th and 12th ribs. 2. Findings are in agreement with the preliminary report. Dictated by: Dictated on workstation # [id number]
--- NOTE | 2022-12-04 07:16 | Diagnostic Imaging Report ---
PROCEDURE: CT head and CT cervical spine without contrast. TECHNIQUE: Multiple contiguous axial images were obtained through the brain and cervical spine without the use of intravenous contrast. Sagittal and coronal reformations through the cervical spine were then performed. Auto Exposure Controls were utilized during the CT exam to meet ALARA standards for radiation dose reduction. INDICATION: Trauma COMPARISON: None available. FINDINGS: Head: No hyperdense hemorrhage or space-occupying mass. No hydrocephalus or midline shift. No evidence of territorial infarct. Basilar cisterns are patent. No focal scalp swelling. No skull fracture. The paranasal sinuses and mastoid air cells are clear. Cervical spine: No acute fracture or traumatic malalignment. ACDF of C5-C7 has well-positioned interbody spacers. No fracture or loosening of the fixation screws or anterior plate. Airway is patent. No cervical lymphadenopathy. Visualized thyroid is normal. IMPRESSION: 1. No acute intracranial process or skull fracture. 2. No acute fracture or traumatic malalignment of the cervical spine. Dictated by: Dictated on workstation # [id number]
--- NOTE | 2022-12-04 07:24 | Diagnostic Imaging Report ---
PROCEDURE: CT thoracic and lumbar spine without contrast. TECHNIQUE: Multiple contiguous axial images were obtained through the thoracic and lumbar spine without the use of intravenous contrast. Sagittal and coronal reformations were then performed. All CT scans use one or more of the following dose optimizing techniques: automated exposure control, MA and/or KvP adjustment based on a patient size and exam type, or iterative reconstruction. INDICATION: Back pain after trauma. COMPARISON: Lumbar spine MRI of 10/30/2022. FINDINGS: There are acute nondisplaced fractures in the right L2 and L3 transverse processes. Additionally, there are acute fractures in the left L1 and L2 transverse process. No acute fracture within the thoracic or lumbar spine vertebrae. Osteoporosis is present. There are old compression injuries of L5, L3, L2 and L1. L2 has undergone vertebral augmentation. No retropulsed ossific fragments into the spinal canal at any level of the thoracic or lumbar spine. Posterior epidural stimulator leads are in place in the lower thoracic spine. IMPRESSION: 1. Acute fractures of the L1, L2 and L3 transverse processes. 2. No acute fracture of the vertebral bodies. 3. The preliminary report indicates that the L3 fracture is new, but this was present on lumbar spine MRI of 10/30/2022 and was not acute at that time. Dictated by: Dictated on workstation # [id number]
[2022-12-05] MEDS ORDERED: METO50TA7 PO (15:03)
[2022-12-05] MEDS ORDERED: DIVA-76 PO (15:03)
[2022-12-05] MEDS ORDERED: CHOL200052 PO (15:03)
[2022-12-05] MEDS ORDERED: BUPR300T98 PO (15:03)
[2022-12-05] MEDS ORDERED: BIOT10004 PO (15:03)
[2022-12-05] MEDS ORDERED: CALC500T64 PO (15:03)
[2022-12-05] MEDS ORDERED: NAPR-915 PO (15:03)
[2022-12-05] MEDS ORDERED: DOCU100C37 PO (15:03)
[2022-12-05] MEDS ORDERED: FAMO20TA5 PO (15:03)
[2022-12-05] MEDS ORDERED: B CO1TAB6 PO (15:03)
[2022-12-05] MEDS ORDERED: GABA300C PO (15:03)
[2022-12-05] MEDS ORDERED: CRAN1CAP10 PO (15:03)
[2022-12-05] MEDS ORDERED: FEN12TD TD (15:03)
[2022-12-05] MEDS ORDERED: MONT-40 PO (15:03)
[2022-12-05] MEDS ORDERED: VIT1CAPS PO (15:03)
[2022-12-05] MEDS ORDERED: ESTR42.511 VG (15:03)
[2022-12-05] MEDS ORDERED: MULT-1076 PO (15:03)
[2022-12-05] MEDS ORDERED: VITS1TAB2 PO (15:03)
[2022-12-05] MEDS ORDERED: CALC3.8S (15:03)
[2022-12-05] MEDS ORDERED: GABA-486 PO (15:03)
[2022-12-05] MEDS ORDERED: FLUT16SP22 NSEACH (15:03)
[2022-12-05] MEDS ORDERED: TRIA1TAB3 PO (15:03)
[2022-12-05] MEDS ORDERED: AZEL137S11 NSEACH (15:03)
[2022-12-05] MEDS ORDERED: FURO20TA4 PO (15:03)
== END 2022-12-04 04:09 | disposition short-term general hospital (02) ==
LOC: EDUNIT# → ER 00:01
DX: S32.038A Other fracture of third lumbar vertebra, initial encounter for closed fracture (principal); S32.019A Unspecified fracture of first lumbar vertebra, initial encounter for closed fracture; S32.029A Unspecified fracture of second lumbar vertebra, initial encounter for closed fracture; S22.41XA Multiple fractures of ribs, right side, initial encounter for closed fracture; S51.011A Laceration without foreign body of right elbow, initial encounter; S61.412A Laceration without foreign body of left hand, initial encounter; S30.1XXA Contusion of abdominal wall, initial encounter; S50.12XA Contusion of left forearm, initial encounter; S50.11XA Contusion of right forearm, initial encounter; N39.0 Urinary tract infection, site not specified; G89.29 Other chronic pain; M54.2 Cervicalgia; M48.061 Spinal stenosis, lumbar region without neurogenic claudication; F17.210 Nicotine dependence, cigarettes, uncomplicated; Z23 Encounter for immunization; Z88.1 Allergy status to other antibiotic agents; Z88.2 Allergy status to sulfonamides; Z88.5 Allergy status to narcotic agent; Z98.1 Arthrodesis status; Z98.890 Other specified postprocedural states; W01.10XA Fall on same level from slipping, tripping and stumbling with subsequent striking against unspecified object, initial encounter; Y92.002 Bathroom of unspecified non-institutional (private) residence as the place of occurrence of the external cause
CPT/HCPCS: 51702; 70450; 71045; 71250; 72125; 72128; 72131; 72170; 74176; 80053; 80306; 81000; 83735; 85025; 85610; 85730; 87077; 87088; 93041; 99285; G0480 ×2; 36415; 80320; 80329; 87186; 90715

== ENCOUNTER 2022-12-05 14:05 | Inpatient (IN) | payer MEDICARE, MEDICAID ==
[~2022-12-05] VITALS: Ht 160 cm; Wt 75.2 kg
[2022-12-05] MEDS ORDERED: GABA300C PO (15:03)
[2022-12-05] MEDS ORDERED: METO50TA7 PO (15:03)
[2022-12-05] MEDS ORDERED: DOCU100C37 PO (15:03)
[2022-12-05] MEDS ORDERED: B CO1TAB6 PO (15:03)
[2022-12-05] MEDS ORDERED: GABA-486 PO (15:03)
[2022-12-05] MEDS ORDERED: VITS1TAB2 PO (15:03)
[2022-12-05] MEDS ORDERED: ESTR42.511 VG (15:03)
[2022-12-05] MEDS ORDERED: CALC3.8S (15:03)
[2022-12-05] MEDS ORDERED: MONT-40 PO (15:03)
[2022-12-05] MEDS ORDERED: FEN12TD TD (15:03)
[2022-12-05] MEDS ORDERED: BUPR300T98 PO (15:03)
[2022-12-05] MEDS ORDERED: AZEL137S11 NSEACH (15:03)
[2022-12-05] MEDS ORDERED: MULT-1076 PO (15:03)
[2022-12-05] MEDS ORDERED: FLUT16SP22 NSEACH (15:03)
[2022-12-05] MEDS ORDERED: VIT1CAPS PO (15:03)
[2022-12-05] MEDS ORDERED: DIVA-76 PO (15:03)
[2022-12-05] MEDS ORDERED: CHOL200052 PO (15:03)
[2022-12-05] MEDS ORDERED: TRIA1TAB3 PO (15:03)
[2022-12-05] MEDS ORDERED: NAPR-915 PO (15:03)
[2022-12-05] MEDS ORDERED: CALC500T64 PO (15:03)
[2022-12-05] MEDS ORDERED: CRAN1CAP10 PO (15:03)
[2022-12-05] MEDS ORDERED: BIOT10004 PO (15:03)
[2022-12-05] MEDS ORDERED: FAMO20TA5 PO (15:03)
[2022-12-05] MEDS ORDERED: FURO20TA4 PO (15:03)
[2022-12-05 15:30] VITALS: BP 146/64
--- OUTSIDE RECORDS SUMMARY | 2022-12-05 15:47 | XMS REPORT ---
Author Sydnie Yarbrough [facility] Address [address] [place] [id number] Care Team Providers Care Truss Puller Helper Name Role Phone MIREILLE HERMAN PCP Allergies and Adverse Reactions Name Reaction Notes Dilaudid Hives, Itching Lortab Hives, Itching morphine Hives, Itching Bactrim Hives, Itching Plan of Treatment Planned Activity Comments Planned Date Planned Time Plan/Goal MAWD 01/26/2020 12:00 AM URINALYSIS W/MICRO C&S IF IND 03/22/2021 12:00 AM URINALYSIS W/MICRO C&S IF IND 11/16/2022 12:00 AM Medications Active Name Start Date Estimated Completion Date SIG Co mments Miralax 17 gram/dose oral powder take 17 gram mixed with 8 oz. water, juice, soda, coffee or tea by oral route once daily Vagifem 10 mcg vaginal tablet in sert [...] day hydroxyzine HCl 10 mg oral tablet estradiol 0.5 mg oral tablet panda e 1 tablet (0.5 mg) by oral route once daily divalproex 500 mg oral tablet extended release 24 hr take 1 tablet (500 mg) by oral route once daily baclofen 20 mg oral tablet take 1 tablet (20 mg) by oral route 3 times per day B Complex 1.7-20-2-1.2 mg/mL sublingual liquid Ocuvite Eye Health 50 mg-15 unit- 4.5 mg-2.5 mg oral tablet,chewabl e vitamin D3-folic acid oral Vitamin C 1,000 mg oral tablet Probiotic 20 billion cell oral capsule zinc 50 mg oral tablet bupropion HCl 300 mg oral tablet extended release 24 hr take 1 tablet (300 mg) by oral route once daily gabapentin 100 mg oral capsule t mariana 1 capsule (100 mg) by oral route once daily gabapentin 300 mg oral capsule t mariana 1 capsule (300 mg) by oral route 3 times per day metoprolol succinate 50 mg oral tablet extended release 24 hr take 1 tablet (50 mg) by oral route once daily dicyclomine 20 mg oral tablet ta ke 1 tablet (20 mg) by oral route 3 times per day Estrace 0.01 % (0.1 mg/gram) vaginal cream 03/22/2021 apply a pea sized amount across urethral opening everyday for 21 days then MWF thereafter cephalexin oral capsule 250 mg 05/24/2022 11/20/2022 t mariana 1 cap (250mg) PO QD for UTI prophylaxis levocetirizine 5 mg tablet take 1 tablet (5 mg) by oral route once daily in the evening montelukast 10 mg tablet take 1 tablet (10 mg) by oral route once daily in the evening Bedside Commode 09/28/2022 To use as directed Cipro 500 mg tablet 11/16/2022 11/19/2022 take 1 table t (500 mg) by oral route every 12 hours for 3 days Name Start Date Expiration Date SIG Comments ciprofloxacin HCl 500 mg oral tablet 03/12/2021 03/17/2021 take 1 tablet (500 mg) by oral route every 12 hours for 5 days Pyridium 200 mg oral tablet 03/12/2021 03/14/2021 take 1 tablet (200 mg) by oral route 3 times per day after meals for 2 days cephalexin 250 mg oral capsule 03/22/2021 take 1 cap isabel by oral route daily Discontinued Name Start Date Discontinued Date SIG Comments Bentyl 10 mg/mL intramuscular solution 03/22/2021 Claritin 10 mg oral tablet 09/28/2022 take 1 tablet (10 mg) by oral route once daily tramadol 50 mg oral tablet 03/22/2021 take 1 tablet (50 mg) by oral route every 6 hours as needed Boniva 150 mg oral tablet 03/22/2021 take 1 tablet (150 mg) by oral route once a month on the same date; Take with a full glass of water and remain in an upright position for at least 60 minutes. Calcium 500 500 mg calcium (1,250 mg) oral tablet 09/28 biotin 5,000 mcg oral tablet,disintegrating 09/28/2022 cranberry 400 mg oral capsule 09/28/2022 Benadryl 25 mg oral capsule 09/28/2022 take 1 capsule (25 mg) by oral route 3 times per day magnesium 30 mg oral tablet 09/28/2022 Premarin 0.625 mg/gram vaginal cream 02/16/2020 02/17/2020 apply a pea sized amount across the urethra daily for 21 days then Sun and Sun after naproxen 500 mg oral tablet,delayed release (DR/EC) 09/28/2022 take 1 tablet (500 mg) by oral route 2 times per day with food Problem List Not available. Vital Signs Date Time BP-Sys(mm[Hg] BP-Makenna(mm[Hg]) HR(bpm) RR(rpm) Temp WT HT HC BMI BSA BMI Percentile O2 Sat(%) 09/28/2022 11:36:00 AM 81 {beats}/min 19 rpm 97.9 F 160 lbs 98 % 05/24/2022 2:38:00 PM 156 mm[Hg] 88 mm[Hg] 95 {beats}/min 18 rpm 98 F 98 % 07/26/2021 10:57:00 AM 130 mm[Hg] 86 mm[Hg] 07/26/2021 10:30:00 AM 190 mm[Hg] 98 mm[Hg] 83 {beats}/min 97 F 16 4.5 lbs 65 in 27.37 kg/m2 1.85 m2 100 % 03/22/2021 11:09:00 AM 142 mm[Hg] 92 mm[Hg] 81 {beats}/min 18 rpm 97.5 F 160 lbs 65 in 26.63 kg/m2 1.82 m2 100 % 08/10/2020 10:17:00 AM 132 mm[Hg] 82 mm[Hg] 87 {beats}/min 18 rpm 98.1 F 161 lbs 96 % 04/06/2020 10:21:00 AM 150 mm[Hg] 70 mm[Hg] 100 {beats}/min 18 rpm 97.9 F 153 lbs 65 in 25.4603 kg/m2 1.784 m2 99 % 01/22/2020 10:45:00 AM 122 mm[Hg] 70 mm[Hg] 103 {beats}/min 18 rpm 97.7 F 153.312 lbs 65 in 25.51 kg/m2 1.79 m2 99 % Social History Name Description Comments Tobacco Current every day smoker Alcohol Light Use status used: Lig ht History of Procedures Date Ordered Description Order Status 01/22/2020 12:00 AM URINALYSIS AUTO W/SCOPE Reviewed 01/22/2020 12:00 AM COMPLETE CBC W/AUTO DIFF WBC Reviewed 01/22/2020 12:00 AM METABOLIC PANEL TOTAL CA Reviewed 01/22/2020 12:[address] ABD & PELVIS W/O CONTRAST Reviewed 01/26/2020 12:00 AM Coronavirus non-CDC test Reviewed 02/04/2020 12:00 AM NO CHARGE OV Reviewed 03/22/2021 11:23 AM US URINE CAPACITY MEASURE Reviewed 03/22/2021 12:00 AM URINALYSIS AUTO W/SCOPE Reviewed 05/04/2022 12:00 AM URINALYSIS AUTO W/SCOPE Reviewed 05/24/2022 2:51 PM US URINE CAPACITY MEASURE Reviewed Results Summary Date and Description Results [...] HYALINE CAST/LPF 2+ CULT SET UP? NO 01/31/2020 10:02 AM [id number] NOT DETECTED 03/22/2021 2:20 PM COLOR Light-Yellow CLARITY C lear SPEC GRAV 1.013 pH 5.5 PROTEIN Negative GLUCOSE Normal KETONE Negative BILIRUBIN Negative BLOOD Negative NITRITE Negative LEUK SCREEN 25 RBC/HPF None Seen WBC/HPF 0-5 BACTERIA/HPF None Seen SQUAMOUS EPI/LPF Few TRANSITION EPI/HPF 1+ MUCOUS/LPF Few HYALINE CAST/LPF 1+ CULT SET UP? NO 05/24/2022 2:51 PM Residual Urine 36.0 mL History Of Immunizations Not available. 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 ding tissue Feb 04 2020 9:12AM OAB (overactive bladder) Feb 04 2020 9:12AM Urge incontinence Feb 04 2020 9:12AM Recurrent UTI Feb 04 2020 9:12AM OAB (overactive bladder) Apr 06 2020 10:21AM Urge Incontinence Apr 06 2020 10:21AM Vaginal erosion due to surgical mesh Apr 06 2020 10:21AM Fecal incontinence Apr 06 2020 10:21AM OAB (overactive bladder) Aug 10 2020 10:18AM Stress Incontinence, Female Aug 10 2020 10:18AM Recurrent UTI Aug 10 2020 10:18AM Erosion of genitourinary device to surrounding tissue Aug 10 2020 10:18AM Recurrent urinary tract infection Mar 22 2021 11:10AM Recurrent UTI Mar 22 2021 2:04PM OAB (overactive bladder) Jul 26 2021 10:31AM Stress Incontinence, Female Jul 26 2021 10:31AM Recurrent UTI Jul 26 2021 10:31AM Hypertension Jul 26 2021 10:31AM Pain with urination May 04 2022 8:25AM Frequency of urination May 04 2022 8:25AM Recurrent UTI May 24 2022 2:38PM Urge Incontinence Sep 28 2022 11:36AM Decreased mobility Sep 28 2022 11:36AM Recurrent urinary tract infection Sep 28 2022 11:36AM Polypharmacy Sep 28 2022 11:36AM Sleep difficulties Sep 28 2022 11:36AM Frequency of urination Nov 16 2022 9:41AM Lower back pain Nov 16 2022 9:41AM Dysuria Nov 16 2022 9:41AM Payers Insurance Name Company Name Plan Name Plan Number Policy Number Martín cy Group Number Start Date Medicare Part B Medicare Of [place] [id number] N/A [facility] e Count Includes [facility] Plan of [id number] N/A History of Encounters Visit Date Visit Type Provider 09/28/2022 Office visit MIREILLE HERMAN BURRING MACHINE OPERATOR 05/24/2022 Office visit Jama Kelly MD 07/26/2021 Office visit Jama Kelly MD 03/22/2021 Office visit MIREILLE HERMAN BURRING MACHINE OPERATOR 08/10/2020 Procedures Jama Kelly MD 04/06/2020 Office visit Jama Kelly MD 02/04/2020 Procedures Jama Kelly MD 02/02/2020 Surgery Jama Kelly MD 01/22/2020 Office visit MIREILLE HERMAN BURRING MACHINE OPERATOR
--- OUTSIDE RECORDS SUMMARY | 2022-12-05 15:47 | XMS REPORT ---
Author Author [facility] Address Unknown Phone Unavailable Care Team Providers Care Knit Goods Washer Name Role Phone YARISYD JOHN Unavailable PROBLEMS Type Condition ICD9-CM Code [id number] Code Onset Dates Condition S tatus W/U Status Risk SNOMED Code Notes Problem Arthralgia of hip, unspecified laterality M25.559 confirmed 61739022 Problem Grief F43.20 confirmed 17569461 Problem Hypertension I10 confirmed 8746511 3 Problem Hyperlipidemia, unspecified hyperlipidemia type E78.5 confirmed 65807649 Problem Other chronic pain G89.29 confirmed 8 3469389 Problem Bipolar 1 disorder, mixed F31.60 confirmed 67695195 Problem Gastritis without bleeding, unspecified chronicity, unspecified gastritis type K29.70 confirmed 241794574 Problem Sciatica of left side M54.32 confirmed 07929614 Problem Sensorineural hearing loss (SNHL) of both ears H90.3 confirmed [id number] 05/2016 mild Problem Acute left-sided low back pain with left-sided sciatica M54.42 confirmed [address]60[address]01 Problem Ab[address] CT scan, head R93.0 confirmed 902938607 Problem Night sweats R61 confirmed 6112785 0 Problem Bruising, spontaneous R23.3 confirmed 441099169 Problem Generalized anxiety disorder F41.1 confirme d 03624299 Problem History of colon polyps Z86.010 confirmed 301883888 Problem Hammer toe of right foot M20.41 confirmed 672410197 Problem Hematuria, unspecified type R31.9 confirmed 68748289 11/[address] Tom Problem Major depressive disorder, recurrent episode, moderate F33.1 confirmed 544951468 Problem Imbalance R26.89 confirmed 836766025 Problem Bladder spasm N32.89 confirmed 729476 006 Problem Age-related osteoporosis without current pathological fracture M81.0 confirmed 56906646 Problem Fibromyalgia M79.7 confirmed 7234897 7 Problem Hormone replacement therapy Z79.890 confirme d 700326246 Problem Plantar wart of right foot B07.0 confirmed [id number] Problem Slow transit constipation K59.01 confirmed 28496339 Problem Tobacco use disorder F17.200 confirmed 300955054 Problem Age-related osteoporosis wit h current pathological fracture with delayed healing, subsequent encounter M80.00XG confirmed 235381459 Problem Hearing loss, unspecified laterality H91.90 confirmed 69103368 Problem Other fci (current) drug therapy Z79.899 confirmed 265315580 Problem Ataxia R27.0 confirmed 11830732 Problem Allergic rhinitis J30.9 confirmed 61 715329 Problem Post menopausal syndrome N95.1 confirmed 887263373 Problem Sciatica of right side M54.31 confirmed 11423608 Problem Hearing loss, unspecified hearing loss type, uns pecified laterality H91.90 confirmed 68160284 Problem Osteoporotic compression fracture of spine with delayed healing M80.88XG confirmed 01160728 ALLERGIES Allergen (clinical drug ingredient) Drug/Non Drug Allergy do cumented on EMR Reaction Allergy Type Onset Date Status Iodine(NDC Code:[address]-46) Unknown Drug Allergy Active pregabalin Lyrica(NDC Code:[address]-86) Unknown Drug Allergy Active hydromorphone Dilaudid(NDC Code:[address]-82) itching Drug Allerg y Active morphine Morphine Sulfate(NDC Code:[address]-75) Unknown Drug A llergy Active sulfamethoxazole / trimethoprim Bactrim(NDC Code:[address]-61) itching Drug Allergy Active ENCOUNTERS from 1955 to 2022-10-31 Encounter Location Date Provider Diagnosis [facility] [place] [address] [facility] [id number] [place] [address] Nov, JOHN MORTON Bipolar 1 disorder, mixed F31.60 IMMUNIZATIONS Vaccine Route Administration Date Status FLUARIX QUAD P-FREE 3 AND UP .50 2015 IM Intramuscular Mar 30, 2 016 Administered FLUARIX QUAD (3 & UP)-GSK-2015 IM Intramuscular Apr 27, 2015 Administered PRIVATE TDAP (BOOSTRIX) IM Intramuscular Apr 24, 2017 Adminis tered PRIVATE TDAP (BOOSTRIX) IM Intramuscular Jul 26, 2016 Adminis tered PRIVATE HIGH DOSE FLU 22-23 (FLUZONE HD) AGE 65YRS AND UP Unknow n May 08, 2022 Administered PRIVATE FLULAVAL QUAD 0.5ML (6 MO AND UP) 2018 IM Intramuscular Mar 12, 2019 Administered FLUARIX QUAD (3 AND UP) 2017 IM Intramuscular Apr 05, 2017 Ad ministered PRIVATE PPSV23 (PNEUMOVAX) Unknown Apr 18, 2013 Pendi ng influenza IIV3 (history) Unknown Apr 18, 2013 Pending PRIVATE PCV 13 (PREVNAR) IM Intramuscular Mar 30, 2016 Admini stered COVID-19 Femi (history) Unknown May 05, 2021 Admin istered COVID-19 Femi (history) Unknown September 11, 2020 Admin istered COVID-19 Moderna (history) Unknown January 09, 2022 Admin istered engerix hepatitis b adult (history) Unknown Mar 08 9 Administered engerix hepatitis b adult (history) Unknown September 10 99 Administered engerix hepatitis b adult (history) Unknown Aug 09, 1998 Administered PRIVATE FLULAVAL QUAD 0.5ML (6 MO AND UP) 2018 IM Intramuscular Mar 20, 2018 Administered PRIVATE ZOSTAVAX (HERPES ZOSTER) SC Subcutaneous May 16, 2017 Administered SOCIAL HISTORY Sex Assigned At : Social History Observation Description Sex Assigned At Unknown Alcohol Screen (Audit-C) Question Answer Notes Did you have a drink containing alcohol in the past year? No Points 0 Interpretation Negative Cessation Question Answer Notes Date Tobacco Cessation Provided: 08/11/2019 current ly on patches Tobacco use other than smoking: Question Answer Notes Are you an other tobacco user? No REASON FOR REFERRAL No Information VITAL SIGNS No information MEDICATIONS Medication SIG (Take, Route, Frequency, Duration) Notes Start Da te End Date Status Baclofen 20 MG 1T PO BID WITH FOOD OR MILK for 30 Active buPROPion HCl ER (XL) 300 mg TAKE ONE TABLET BY MOUTH EVERY MORNING orally as directed for 30 days Active hydrOXYzine HCl 10 mg TAKE ONE TABLET BY MOUTH THREE TIMES DAILY NEEDED Active Naproxen 500 MG 1 tablet with food or milk as needed Orally every 12 hrs Active Vitamin D3 75 MCG (3000 UT) 1 tablet Orally Once a day Active Metoprolol Succinate ER 50 MG 1 tablet Orally Once a day Active Voltaren 1 % as directed Externally Active Ibandronate Sodium 150 MG 1 tablet Orally once monthly for 30 da y(s) October, Not-Taking Mometasone Furoate 50 MCG/ACT 1 spray in each nostril Nasally Once a day Active Divalproex Sodium 500 mg TAKE TWO TABLETS BY MOUTH AT BEDTIME orally as directed for 30 days Active Dicyclomine HCl 20 MG 1 tablet Orally Three times a day Active MiraLax Active Prolia Active Fetzima 120 mg TAKE ONE CAPSULE BY MOUTH EV MORNING orally as directed for 30 days Active Gabapentin Active Calcium 1200 6715-3888 MG-UNIT 1 tablet with a meal Orally Once a day Active Pantoprazole Sodium 20 MG 1 tablet Orally Once a day taking 40 mg Active PROCEDURES No Information RESULTS No Results REASON FOR VISIT f/u MEDICAL (GENERAL) HISTORY Type Description Date Medical [...] cystocele 03/2018 Surgical History Lumbar Epidural 02/2019 Surgical History Reclass fusion 2019 Surgical History L1 fusion- L2 2020 Hospitalization History surgeries Hospitalization History depression Hospitalization History psychiatric hospitalizations (last i ncident 2013) x5 Hospitalization History L1 fracture 05/2019 Hospitalization History [facility] X7 days 2020 Goals Section No Information Health Concerns No Information MEDICAL EQUIPMENT No Information MENTAL STATUS No Information FUNCTIONAL STATUS No Information ASSESSMENTS Encounter Date Diagnosis Assessment Notes Treatment Notes Treatm ent Clinical Notes Nov, Bipolar 1 disorder, mixed (ICD-10 - F31. 60) PLAN OF TREATMENT Medication Medication Name Sig Start Date Stop Date Divalproex Sodium 500 mg TAKE TWO TABLETS BY MOUTH AT BEDTIME orally as directed for 30 days hydrOXYzine HCl 10 mg TAKE ONE TABLET BY MOUTH THREE TIMES DAILY NEEDED buPROPion HCl ER (XL) 300 mg TAKE ONE TABLET BY MOUTH EVERY MORNING orally as directed for 30 days Fetzima 120 mg TAKE ONE CAPSULE BY MOUTH EV VALERIO MORNING orally as directed for 30 days Next Appt Details Next available Reason: F/U Provider Name:JOHN MORTON, 10:30:00 AM, [address] [place] [address], [id number], [place], [address], Provider Name:JOHN MORTON, 10:30:00 AM, [address] [place] [address], [id number], [place], [address], Provider Name:MIRIAN SQUIRES, 2022-11-27 10 :20:00 AM, [address] [place] [address], [id number], [place], [address], Provider Name:JOHN MORTON, 10:00:00 AM, [address] [place] [address], [id number], [place], [address], Provider Name:JOHN MORTON, 10:00:00 AM, [address] [place] [address], [id number], [place], [address], Provider Name:JOHN MORTON, 09:30:00 AM, [address] [place] [address], [id number], [place], [address], Provider Name:JOHN MORTON, 09:30:00 AM, [address] [place] [address], [id number], [place], [address], Follow Up:Next available F/U Insurance Providers Payer Name Payer Address Payer Phone Insured Name Patient Relati onship to Insured Coverage Start Date Coverage End Date Subscriber Number Group Nu mber NEIL [address] [facility] [id number] Sydnie Huffman Self - patient is the insured [id number] [facility] [address] [facility] [address] [phone] Sydnie Huffman Self - patient is the insured 2021 [id number] [employer] MEDICARE Part A [address] [facility] [address] Sydnie Huffman Self - patient is the insured 2017 [id number] MEDICATIONS ADMINISTERED Medication Instructions Date of Administration Dosage KENALOG 40 MG/ML (PER 10 MG) Aug, 40 mg KENALOG 40 MG/ML (PER 10 MG) October, 40 mg
--- OUTSIDE RECORDS SUMMARY | 2022-12-05 15:47 | XMS REPORT | CCD ---
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 Role Phone [facility] Unavailable CCM Unavailable Summary Purpose Interface Exchange Insurance Providers Payer name Policy type / Coverage type Covered democrat ID Effective Begin Date Effective End Date WPS Medicare Part B Medicare Part B [id number] Unknown Unkno wn [facility] Medicare Part B [id number] Unknown Unknown Family history Uncle Diagnosis Age At Onset Cancer Unknown Daughter Diagnosis Age At Onset Anemia Unknown Mother Diagnosis Age At Onset Arthritis Unknown Son Diagnosis Age At Onset defect Unknown lymphoma Unknown Arthritis Unknown Brother Diagnosis Age At Onset Arthritis Unknown Father Diagnosis Age At Onset Alcoholism Unknown bleeding problem Unknown Arthritis Unknown Cancer Unknown Sister Diagnosis Age At Onset Osteoporosis Unknown Arthritis Unknown Breast cancer Unknown Social History Social History Element Codes Description Effective Dates Tobacco history SNOMED CT: 84071435 Current every day smoker Marital status Unknown 11/06/2019 Number of children Unknown 4 grown 11/06/2019 Employment Unknown Retired 4 years ago due to health issues 11/06/2019 Number of years using tobacco Unknown 50 Number of cigarettes/day Unknown 20 (One Pack) [address]: 711553 Currently drinks alcohol 11/05 Frequency of drinks SNOMED CT: 006448293 1drink per week 020 Allergies, Adverse Reactions, Alerts Substance Reaction Codes Entered Date Inactivated Date Status MORPHINE SULFATE rash RxNorm: 38579 11/06/2019 No Inactive Date Active * OTHER REACTION - SEE ANSWER BOX Dilaudid- itching Unknown No Inactive Date Active hydrocodone pruritis Unknown 11/06/2019 No Inactive Date Active bactrim hives, RxNorm: 416124 02/10/2020 No Inactive Date Acti ve IODINE; IODINE CONTAINING rash, Unknown 11/06/2019 No Inactiv e Date Active Problems Condition Codes Effective Dates Condition Status Age-related osteoporosis with current pa thological fracture with routine healing, subsequent encounter ICD-10: M80.00XD ICD-9: [id number] 10/31/2022 Active Essential (primary) hypertension ICD-10: I10 ICD-9: 401.1 06/22/2020 Active Compression fracture of L3 vertebra, initial encounter ICD-10: S32.030A ICD-9: 805.4 10/17/2022 Active Compression fracture of L5 vertebra, initial encounter ICD-10: S32.050A ICD-9: 805.4 10/17/2022 Active Depression screening ICD-10: Z13.31 ICD-9: V79.0 07/24/2022 Active Urinary incontinence ICD-10: R32 ICD-9: 788.30 07/24/2022 Active Well adult exam ICD-10: Z00.00 ICD-9: V70.0 07/24/2022 Active Essential (primary) hypertension ICD-10: I10 ICD-9: 401.9 08/20/2020 Active Dysuria ICD-10: R30.0 ICD-9: 788.1 12/30/2019 Active Urinary tract infection ICD-10: N39.0 ICD-9: 599.0 10/27/2021 Active Nontraumatic compression fracture of L5 vertebra, init ial encounter ICD-10: M48.56XA ICD-9: 733.13 09/28/2021 Active Other chronic pain ICD-10: G89.29 ICD-9: 338.29 04/14/2021 Active Chronic back pain ICD-10: M54.9 ICD-9: 724.5 11/06/2019 Active Other allergic rhinitis ICD-10: J30.89 ICD-9: 477.8 12/02/2019 Active Chronic idiopathic constipation ICD-10: K59.04 ICD-9: 564.00 06/01/2021 Active Hyponatremia ICD-10: E87.1 ICD-9: 276.1 06/01/2021 Active Age-related osteoporosis without current pathological fracture ICD-10: M81.0 ICD-9: 733.01 11/06/2019 Active Oral candidiasis ICD-10: B37.0 ICD-9: 112.0 05/18/2021 Active Fibromyalgia ICD-10: M79.7 ICD-9: 729.1 06/22/2020 Active VACCIN FOR INFLUENZA ICD-10: Z23 ICD-9: V04.81 04/07/2020 Active Laceration of right lower leg ICD-10: S81.811A ICD-9: 891.0 03/03/2021 Active Laceration of left lower leg ICD-10: S81.812A ICD-9: 891.0 03/03/2021 Active Low back pain ICD-10: M54.5 ICD-9: 724.2 10/29/2020 Active Pain of right sacroiliac joint ICD-10: M53.3 ICD-9: 724.6 10/29/2020 Active Nicotine dependence, cigarettes, uncomplicated ICD-10: F17.210 ICD-9: 305.1 10/29/2020 Active Generalized osteoarthritis ICD-10: M15.9 ICD-9: 715.00 06/22/2020 Active Weakness ICD-10: R53.1 ICD-9: 780.79 04/05/2020 Active Hypertension Unknown 08/20/2020 Active Benign paroxysmal positional vertigo, bilateral ICD-10 : H81.13 ICD-9: 386.11 04/05/2020 Active Osteoarthritis Unknown 06/22/2020 Active Breast pain, left ICD-10: N64.4 ICD-9: 611.71 06/22/2020 Active Acute recurrent maxillary sinusitis ICD-10: J01.01 ICD-9: 461.0 05/24/2020 Active Cough ICD-10: R05 ICD-9: 786.2 12/02/2019 Active Frequent falls ICD-10: R29.6 ICD-9: V15.88 04/05/2020 Active Imbalance ICD-10: R26.89 ICD-9: 781.2 04/05/2020 Active Rib pain on left side ICD-10: R07.81 ICD-9: 786.50 03/22/2020 Active Skin tear of right forearm without complication, subse quent encounter ICD-10: S51.811D ICD-9: V58.89 03/16/2020 Active Right knee pain ICD-10: m25.561 ICD-9: 719.46 03/11/2020 Active Right shoulder pain ICD-10: M25.511 ICD-9: 719.41 03/15/2020 Active Skin tear of right forearm without complication ICD-10 : S51.811A ICD-9: 881.00 03/15/2020 Active Other acute sinusitis ICD-10: J01.80 ICD-9: 461.8 12/02/2019 Active Gastro-esophageal reflux disease without esophagitis I CD-10: K21.9 ICD-9: 530.81 11/06/2019 Active Hematuria, gross ICD-10: R31.0 ICD-9: 599.71 11/20/2019 Active Hematuria ICD-10: R31.9 ICD-9: 599.70 01/14/2020 Active Encounter for screening mammogram for malignant neopla sm of breast ICD-10: Z12.31 ICD-9: V76.12 11/13/2019 Active Nasal sinus congestion ICD-10: R09.81 ICD-9: 478.19 11/06/2019 Active Other chronic pain ICD-10: G89.29 11/06/2019 Active Medications Medication Codes Instructions Start Date Stop Date Status Fill Instructions triamterene 37.5 mg-hydrochlorothiazide 25 mg tablet RxNorm: 046659 Take 1 Tablet(s) Oral every day 10/31/2022 02/27/2023 Active polyethylene glycol 3350 17 gram/dose oral powder RxNorm: 87 6193 MIX 17 GRAMS WITH EIGHT OUNCES OF LIQUID EVERY DAY NEEDED 10/29/2022 02/25/2023 Active prednisone 20 mg tablet RxNorm: 581632 Take 2 Tablet(s) Oral ev anatoly day 10/26/2022 10/28/2022 Inactive Pepcid 20 mg tablet RxNorm: 095799 Take 1 Tablet(s) Oral two ti mes a day 10/26/2022 11/04/2022 Inactive please deliver Pepcid 20 mg tablet RxNorm: 495358 Take 1 Tablet(s) Oral two ti mes a day 10/26/2022 10/26/2022 Inactive please deliver pantoprazole 40 mg tablet,delayed release RxNorm: 298808 TAKE 1 TABLET BY MOUTH ONCE DAILY 10/19/2022 11/17/2022 Inactive This prescriptio n was filled on 09/26/2022. Any refills authorized will be placed on file. diazepam 5 mg tablet RxNorm: 914169 Take 1 Tablet(s) Oral as di rected 10/17/2022 No Stop Date Active 30 min prior to MRI - october repeat x 1 Percocet 5 mg-325 mg tablet RxNorm: 1289167 Take 1 Table t(s) Oral four times a day 10/17/2022 11/15/2022 Inactive calcitonin (salmon) 200 unit/actuation nasal spray RxNorm: 3 94541 INSTILL ONE SPRAY IN ONE NOSTRIL EVERY DAY ALTERNATING DAILY 10/02/2022 11/30/2022 Active estradiol 10 mcg vaginal tablet RxNorm: 210215 INSERT O NE TABLET VAGINALLY TWO TIMES PER WEEK 10/02/2022 03/18/2023 Active metoprolol succinate ER 50 mg tablet,extended release 24 hr RxNorm: 867489 Take 1 Tablet(s) Oral every day 09/17/2022 06/07/2024 Active This prescription was filled on 08/24/2022. Any refills authorized will be placed on file. naproxen 500 mg tablet RxNorm: 814941 Take 1 Tablet(s) Oral two times a day 09/17/2022 04/14/2023 Active This prescription wa s filled on 08/24/2022. Any refills authorized will be placed on file. fluticasone propionate 50 mcg/actuation nasal spray,suspensi on RxNorm: 7912675 USE TWO SPRAYS IN EACH NOSTRIL EVERY DAY 08/17/2022 12/14/2022 Active This prescription was filled on 07/25/2022. Any refills authorized will be placed on file. gabapentin 100 mg capsule RxNorm: 283845 TAKE ONE CAPSU LE BY MOUTH EVERY MORNING AND TAKE ONE CAPSULE BY MOUTH EARLY AFTERNOON 08/17/2022 01/13/2023 Ac tive This prescription was filled on 07/25/2022. Any refills authorized will be placed on file. gabapentin 300 mg capsule RxNorm: 530593 Take 1 Capsule(s) Oral at bed time 08/17/2022 01/13/2023 Active This prescription wa s filled on 07/25/2022. Any refills authorized will be placed on file. baclofen 20 mg tablet RxNorm: 251517 TAKE ONE TABLET BY MOUTH TWICE DAILY WITH FOOD OR MILK 07/25/2022 11/21/2022 Inactive cefdinir 300 mg capsule RxNorm: 609678 Take 1 Capsule(s) Oral t wo times a day 07/24/2022 07/30/2022 Inactive dicyclomine 20 mg tablet RxNorm: 161569 TAKE 1 TABLET B Y MOUTH THREE TIMES DAILY 07/20/2022 11/16/2022 Inactive This prescriptio n was filled on 06/27/2022. Any refills authorized will be placed on file. baclofen 20 mg tablet RxNorm: 348212 TAKE ONE TABLET BY MOUTH TWICE DAILY WITH FOOD OR MILK 06/27/2022 06/27/2022 Inactive calcitonin (salmon) 200 unit/actuation nasal spray RxNorm: 3 69896 INSTILL ONE SPRAY IN ONE NOSTRIL EVERY DAY ALTERNATING DAILY 06/19/2022 09/16/2022 Inactive This prescription was filled on 05/26/2022. Any refills authorized will be placed on file. baclofen 20 mg tablet RxNorm: 194930 TAKE ONE TABLET BY MOUTH TWICE DAILY WITH FOOD OR MILK 05/30/2022 05/30/2022 Inactive This prescriptio n was filled on 04/06/2021. Any refills authorized will be placed on file. pantoprazole 40 mg tablet,delayed release RxNorm: 442808 TAKE 1 TABLET BY MOUTH ONCE DAILY 05/19/2022 10/15/2022 Inactive This prescriptio n was filled on 04/26/2022. Any refills authorized will be placed on file. cephalexin 500 mg capsule RxNorm: 233027 Take 1 Capsule (s) Oral three times a day 04/25/2022 05/01/2022 Inactive cephalexin 500 mg capsule RxNorm: 846597 Take 1 Capsule (s) Oral three times a day 04/25/2022 04/25/2022 Inactive estradiol 0.01% (0.1 mg/gram) vaginal cream RxNorm: 070011 A PEA SIZE AMOUNT ACROSS URETHRAL OPENING DAILY FOR 21 DAYS THEN ON SUNDAY., SUNDAY., SUNDAY. THEREAFTER 04/20/2022 10/16/2022 Inactive This prescriptio n was filled on 03/27/2022. Any refills authorized will be placed on file. Augmentin 875 mg-125 mg tablet RxNorm: 599456 Take 1 Ta blet(s) Oral two times a day 03/28/2022 04/01/2022 Inactive dicyclomine 20 mg tablet RxNorm: 262960 TAKE 1 TABLET B Y MOUTH THREE TIMES DAILY 03/20/2022 03/20/2022 Inactive This prescriptio n was filled on 02/23/2022. Any refills authorized will be placed on file. gabapentin 100 mg capsule RxNorm: 016380 TAKE ONE CAPSU LE BY MOUTH EVERY MORNING AND TAKE ONE CAPSULE BY MOUTH EARLY AFTERNOON 03/20/2022 08/16/2022 In active This prescription was filled on 02/23/2022. Any refills authorized will be placed on file. montelukast 10 mg tablet RxNorm: 100821 Take 1 Tablet(s) Oral a t bed time 03/20/2022 05/30/2022 Inactive This prescription wa s filled on 02/23/2022. Any refills authorized will be placed on file. gabapentin 300 mg capsule RxNorm: 077338 Take 1 Capsule(s) Oral at bed time 03/20/2022 08/16/2022 Inactive This prescription wa s filled on 02/23/2022. Any refills authorized will be placed on file. calcitonin (salmon) 200 unit/actuation nasal spray RxNorm: 3 60365 INSTILL ONE SPRAY IN ONE NOSTRIL EVERY DAY ALTERNATING DAILY 03/20/2022 06/17/2022 Inactive This prescription was filled on 02/23/2022. Any refills authorized will be placed on file. ceftriaxone 500 mg solution for injection RxNorm: 9092596 Take I njection 03/15/2022 03/15/2022 Inactive ceftriaxone 500 mg solution for injection RxNorm: 8091514 Take I njection 03/14/2022 03/14/2022 Inactive ceftriaxone 500 mg solution for injection RxNorm: 9768790 Take I njection 03/13/2022 03/13/2022 Inactive ceftriaxone 500 mg solution for injection RxNorm: 7477310 Take I njection 03/10/2022 03/10/2022 Inactive amoxicillin 875 mg-potassium clavulanate 125 mg tablet RxNor m: 262850 Take 1 Tablet(s) Oral two times a day 03/09/2022 03/13/2022 Inactive ceftriaxone 500 mg solution for injection RxNorm: 3562614 Take I njection 03/09/2022 03/09/2022 Inactive estradiol 10 mcg vaginal tablet RxNorm: 600645 INSERT O NE TABLET VAGINALLY TWO TIMES PER WEEK 03/07/2022 08/21/2022 Inactive This prescriptio n was filled on 12/20/2021. Any refills authorized will be placed on file. cephalexin 500 mg capsule RxNorm: 603164 Take 1 Capsule (s) Oral three times a day 02/24/2022 03/02/2022 Inactive metoprolol succinate ER 50 mg tablet,extended release 24 hr RxNorm: 678561 Take 1 Tablet(s) Oral every day 02/20/2022 02/20/2022 Inactive This prescription was filled on 01/26/2022. Any refills authorized will be placed on file. naproxen 500 mg tablet RxNorm: 480133 Take 1 Tablet(s) Oral two times a day 02/20/2022 02/20/2022 Inactive This prescription wa s filled on 01/26/2022. Any refills authorized will be placed on file. fluticasone propionate 50 mcg/actuation nasal spray,suspensi on RxNorm: 1453729 USE TWO SPRAYS IN EACH NOSTRIL EVERY DAY 02/05/2022 06/04/2022 Inactiv e calcitonin (salmon) 200 unit/actuation nasal spray RxNorm: 3 31595 INSTILL ONE SPRAY IN ONE NOSTRIL EVERY DAY ALTERNATING DAILY 2021 2021 Inactive pantoprazole 40 mg tablet,delayed release RxNorm: 323514 TAKE 1 TABLET BY MOUTH ONCE DAILY 12/21/2021 12/21/2021 Inactive This prescriptio n was filled on 11/28/2021. Any refills authorized will be placed on file. Cipro 500 mg tablet RxNorm: 287515 Take 1 Tablet(s) Oral two ti mes a day 12/09/2021 12/15/2021 Inactive Pyridium 200 mg tablet RxNorm: 3349610 Take 1 Tablet(s) Oral three times a day as needed 12/02/2021 No Stop Date Active cephalexin 500 mg capsule RxNorm: 586281 Take 1 Capsule (s) Oral three times a day 12/02/2021 12/08/2021 Inactive levocetirizine 5 mg tablet RxNorm: 318880 Take 1 Tablet(s) Oral every day 11/28/2021 11/22/2022 Inactive dicyclomine 20 mg tablet RxNorm: 219519 TAKE 1 TABLET B Y MOUTH THREE TIMES DAILY 11/20/2021 11/20/2021 Inactive This prescriptio n was filled on 10/28/2021. Any refills authorized will be placed on file. calcitonin (salmon) 200 unit/actuation nasal spray RxNorm: 3 62692 INSTILL ONE SPRAY IN ONE NOSTRIL EVERY DAY ALTERNATING DAILY 11/20/2021 12/19/2021 Inactive This prescription was filled on 10/28/2021. Any refills authorized will be placed on file. celecoxib 200 mg capsule RxNorm: 534584 Take 1 Capsule(s) Oral two times a day 11/02/2021 05/02/2022 Inactive estradiol 0.01% (0.1 mg/gram) vaginal cream RxNorm: 873018 A PEA SIZE AMOUNT ACROSS URETHRAL OPENING DAILY FOR 21 DAYS THEN ON SUNDAY., SUNDAY., SUNDAY. THEREAFTER 10/28/2021 10/28/2021 Inactive cephalexin 500 mg tablet RxNorm: 006730 Take 1 Tablet(s) Oral t hree times a day 10/27/2021 11/02/2021 Inactive ceftriaxone 500 mg solution for injection RxNorm: 2118031 Take I njection 10/27/2021 10/27/2021 Inactive naproxen 500 mg tablet RxNorm: 989196 Take 1 Tablet(s) Oral two times a day 10/24/2021 10/24/2021 Inactive This prescription wa s filled on 09/28/2021. Any refills authorized will be placed on file. gabapentin 100 mg capsule RxNorm: 309317 TAKE ONE CAPSU LE BY MOUTH EVERY MORNING AND TAKE ONE CAPSULE BY MOUTH EARLY AFTERNOON 10/24/2021 10/24/2021 In active This prescription was filled on 09/28/2021. Any refills authorized will be placed on file. gabapentin 300 mg capsule RxNorm: 899710 Take 1 Capsule(s) Oral at bed time 10/24/2021 10/24/2021 Inactive This prescription wa s filled on 09/28/2021. Any refills authorized will be placed on file. Prolia 60 mg/mL subcutaneous syringe RxNorm: 801333 1 M illiliter(s) Subcutaneous as doctor directed every 6 months 10/17/2021 No Stop Date Active Percocet 5 mg-325 mg tablet RxNorm: 0809609 Take 1 Table t(s) Oral four times a day 09/30/2021 10/29/2021 Inactive calcitonin (salmon) 200 unit/actuation nasal spray RxNorm: 3 38926 Take 1 [place] Nasal every day one spray in one nostril every day - alternate nostrils daily 09/28/2021 09/28/2021 Inactive Percocet 5 mg-325 mg tablet RxNorm: 9822003 Take 1 Table t(s) Oral Every 6 hrs as needed 09/22/2021 09/22/2021 Inactive Percocet 5 mg-325 mg tablet RxNorm: 1542499 Take 1 Table t(s) Oral Every 6 hrs as needed 09/22/2021 09/22/2021 Inactive estradiol 10 mcg vaginal tablet RxNorm: 759371 INSERT O NE TABLET VAGINALLY TWO TIMES PER WEEK 09/19/2021 03/05/2022 Inactive baclofen 20 mg tablet RxNorm: 512076 TAKE ONE TABLET BY MOUTH TWICE DAILY WITH FOOD OR MILK 08/08/2021 11/05/2021 Inactive This prescriptio n was filled on 04/06/2021. Any refills authorized will be placed on file. dicyclomine 20 mg tablet RxNorm: 806308 TAKE 1 TABLET B Y MOUTH THREE TIMES DAILY 07/25/2021 07/25/2021 Inactive This prescriptio n was filled on 06/30/2021. Any refills authorized will be placed on file. pantoprazole 40 mg tablet,delayed release RxNorm: 213605 TAKE 1 TABLET BY MOUTH ONCE DAILY 07/25/2021 07/25/2021 Inactive This prescriptio n was filled on 06/30/2021. Any refills authorized will be placed on file. metoprolol succinate ER 50 mg tablet,extended release 24 hr RxNorm: 753389 Take 1 Tablet(s) Oral every day 07/25/2021 07/25/2021 Inactive This prescription was filled on 06/30/2021. Any refills authorized will be placed on file. naproxen 500 mg tablet RxNorm: 567439 Take 1 Tablet(s) Oral two times a day 06/23/2021 10/20/2021 Inactive This prescription wa s filled on 05/31/2021. Any refills authorized will be placed on file. gabapentin 100 mg capsule RxNorm: 366130 Take 1 Capsule (s) Oral as directed 1 tab AM, 1 tab early afternoon, and 3 tab hs 06/01/2021 06/01/2021 Inac tive dicyclomine 20 mg tablet RxNorm: 830242 TAKE 1 TABLET B Y MOUTH THREE TIMES DAILY 05/31/2021 05/31/2021 Inactive cephalexin 500 mg tablet RxNorm: 711845 Take 1 Tablet(s) Oral t wo times a day 05/18/2021 05/24/2021 Inactive Diflucan 150 mg tablet RxNorm: 025533 Take 1 Tablet(s) Oral shoshana ry day 05/18/2021 05/24/2021 Inactive baclofen 20 mg tablet RxNorm: 985693 TAKE ONE TABLET BY MOUTH TWICE DAILY WITH FOOD OR MILK 04/29/2021 06/27/2021 Inactive This prescriptio n was filled on 04/06/2021. Any refills authorized will be placed on file. Tylenol Extra Strength 500 mg tablet RxNorm: 329218 2 T ablet(s) Oral three times a day 04/14/2021 No Stop Date Active montelukast 10 mg tablet RxNorm: 599233 TAKE 1 TABLET BY MOUTH AT BEDTIME 03/15/2021 05/25/2021 Inactive Singulair 10 mg tablet RxNorm: 733469 TAKE 1 TABLET BY MOUTH AT BEDTIME 03/14/2021 04/12/2021 Inactive Diflucan 150 mg tablet RxNorm: 372741 Take 1 Tablet(s) Oral shoshana ry day 03/11/2021 03/13/2021 Inactive Diflucan 150 mg tablet RxNorm: 241510 Take 1 Tablet(s) Oral shoshana ry day 03/11/2021 03/11/2021 Inactive baclofen 20 mg tablet RxNorm: 379816 TAKE ONE TABLET BY MOUTH TWICE DAILY WITH FOOD OR MILK 03/07/2021 03/07/2021 Inactive This prescriptio n was filled on 02/10/2021. Any refills authorized will be placed on file. fluticasone propionate 50 mcg/actuation nasal spray,suspensi on RxNorm: 5930203 USE TWO SPRAYS IN EACH NOSTRIL EVERY DAY 03/07/2021 07/04/2021 Inactiv e This prescription was filled on 02/10/2021. Any refills authorized will be placed on file. naproxen 500 mg tablet RxNorm: 580444 Take 1 Tablet(s) Oral two times a day 03/07/2021 03/07/2021 Inactive This prescription wa s filled on 02/10/2021. Any refills authorized will be placed on file. Augmentin 875 mg-125 mg tablet RxNorm: 687576 1 Tablet(s) Oral two times a day 02/18/2021 02/18/2021 Inactive Augmentin 875 mg-125 mg tablet RxNorm: 182644 1 Tablet(s) Oral two times a day 02/18/2021 02/24/2021 Inactive Keflex 500 mg capsule RxNorm: 457289 1 Capsule(s) Oral three ti mes a day 02/14/2021 02/17/2021 Inactive pantoprazole 40 mg tablet,delayed release RxNorm: 095300 TAKE 1 TABLET BY MOUTH ONCE DAILY 02/04/2021 07/03/2021 Inactive This prescriptio n was filled on 01/12/2021. Any refills authorized will be placed on file. gabapentin 400 mg capsule RxNorm: 147604 1 Capsule(s) Oral at b ed time 02/01/2021 05/01/2021 Inactive Vitamin D3 125 mcg (5,000 unit) tablet RxNorm: 279139 1 Tablet(s) Oral every day 01/25/2021 No Stop Date Active baclofen 20 mg tablet RxNorm: 223400 TAKE ONE TABLET BY MOUTH TWICE DAILY WITH FOOD OR MILK 01/05/2021 03/05/2021 Inactive This prescriptio n was filled on 12/13/2020. Any refills authorized will be placed on file. Colace 100 mg capsule RxNorm: 6386522 1 Capsule(s) Oral every day 0 01/03/2021 02/01/2021 Inactive Miralax 17 gram/dose oral powder RxNorm: 907510 17 Gram (s) Oral every day as needed 01/03/2021 01/03/2021 Inactive Colace 100 mg capsule RxNorm: 4704486 1 Capsule(s) Oral every day 0 01/03/2021 01/03/2021 Inactive Keflex 500 mg capsule RxNorm: 173552 1 Capsule(s) Oral three ti mes a day 12/22/2020 12/28/2020 Inactive gabapentin 300 mg capsule RxNorm: 767912 1 Capsule(s) Oral at b ed time 12/17/2020 01/15/2021 Inactive gabapentin 300 mg capsule RxNorm: 589320 1 Capsule(s) Oral at b ed time 12/17/2020 12/17/2020 Inactive prednisone 20 mg tablet RxNorm: 782747 2 Tablet(s) Oral every day 0 11/30/2020 11/29/2020 Inactive prednisone 20 mg tablet RxNorm: 955240 2 Tablet(s) Oral every day 0 11/30/2020 12/05/2020 Inactive Kenalog 40 mg/mL suspension for injection RxNorm: 1617008 1 Milliliter(s) Injection 11/23/2020 11/23/2020 Inactive Tessalon Perles 100 mg capsule RxNorm: 238770 2 Capsule (s) Oral three times a day as needed cough 11/19/2020 No Stop Date Active Augmentin 500 mg-125 mg tablet RxNorm: 400506 1 Tablet( s) Oral three times a day 11/17/2020 11/24/2020 Inactive Xyzal 5 mg tablet RxNorm: 741986 TAKE 1 TABLET BY MOUTH DAILY 11/1111/05/2021 Inactive naproxen 500 mg tablet RxNorm: 286983 1 Tablet(s) Oral two time s a day 11/08/2020 11/08/2020 Inactive baclofen 20 mg tablet RxNorm: 637086 TAKE ONE TABLET BY MOUTH TWICE DAILY WITH FOOD OR MILK 11/04/2020 01/02/2021 Inactive Kenalog 40 mg/mL suspension for injection RxNorm: 0747222 Milliliter(s) Injection 10/29/2020 10/29/2020 Inactive Flonase Allergy Relief 50 mcg/actuation nasal spray,suspensi on RxNorm: 4290632 2 [place] Nasal every day 10/27/2020 02/23/2021 Inactive baclofen 20 mg tablet RxNorm: 897620 TAKE 1 TABLET BY M OUTH TWICE DAILY WITH FOOD OR MILK 09/27/2020 10/26/2020 Inactive Flonase Allergy Relief 50 mcg/actuation nasal spray,suspensi on RxNorm: 4159308 2 [place] Nasal every day 09/06/2020 10/26/2020 Inactive Flonase Allergy Relief 50 mcg/actuation nasal spray,suspensi on RxNorm: 1547377 2 [place] Nasal every day 08/30/2020 09/05/2020 Inactive pantoprazole 40 mg tablet,delayed release RxNorm: 597946 TAKE 1 TABLET BY MOUTH ONCE DAILY 08/30/2020 08/30/2020 Inactive Xyzal 5 mg tablet RxNorm: 942501 TAKE 1 TABLET BY MOUTH DAILY 08/2011/10/2020 Inactive metoprolol succinate ER 50 mg tablet,extended release 24 hr RxNorm: 619919 1 Tablet(s) Oral every day 08/20/2020 08/20/2020 Inactive Xyzal 5 mg tablet RxNorm: 273908 TAKE 1 TABLET BY MOUTH DAILY 08/2008/19/2020 Inactive dicyclomine 20 mg tablet RxNorm: 663432 TAKE 1 TABLET B Y MOUTH THREE TIMES DAILY 07/29/2020 07/29/2020 Inactive This prescriptio n was filled on 07/06/2020. Any refills authorized will be placed on file. metoprolol succinate ER 25 mg tablet,extended release 24 hr RxNorm: 417724 1.5 Tablet(s) Oral every day 07/22/2020 08/19/2020 Inactive Cipro 500 mg tablet RxNorm: 558560 1 Tablet(s) Oral two times a day 07/16/2020 07/23/2020 Inactive baclofen 20 mg tablet RxNorm: 800520 TAKE 1 TABLET BY M OUTH TWICE DAILY WITH FOOD OR MILK 07/14/2020 09/12/2020 Inactive Vagifem 10 mcg vaginal tablet RxNorm: 754388 INSERT 1 TABLET TW O TIMES A WEEKPV 07/14/2020 12/29/2020 Inactive Vagifem 10 mcg vaginal tablet RxNorm: 488772 INSERT 1 TABLET TW O TIMES A WEEKPV 07/07/2020 07/13/2020 Inactive baclofen 20 mg tablet RxNorm: 677769 TAKE 1 TABLET BY M OUTH TWICE DAILY WITH FOOD OR MILK 06/30/2020 07/13/2020 Inactive tramadol 50 mg tablet RxNorm: 325729 Tablet(s) Oral dr quirino sneed 06/22/2020 No Stop Date Active estradiol 1 mg tablet RxNorm: 208096 1 Tablet(s) Oral every day 10/202006/17/2021 Inactive naproxen 500 mg tablet RxNorm: 328750 1 Tablet(s) Oral two time s a day 06/22/2020 11/07/2020 Inactive metoprolol succinate ER 25 mg tablet,extended release 24 hr RxNorm: 026589 1 Tablet(s) Oral every day 06/22/2020 07/21/2020 Inactive naproxen 500 mg tablet RxNorm: 395146 1 Tablet(s) Oral two time s a day 06/16/2020 06/21/2020 Inactive Flonase Allergy Relief 50 mcg/actuation nasal spray,suspensi on RxNorm: [id number] 2 [place] Nasal every day 05/31/2020 08/28/2020 Inactive dicyclomine 20 mg tablet RxNorm: 443753 TAKE 1 TABLET B Y MOUTH THREE TIMES DAILY 05/31/2020 07/28/2020 Inactive This prescriptio n was filled on 05/06/2020. Any refills authorized will be placed on file. prednisone 20 mg tablet RxNorm: 893982 2 Tablet(s) Oral every day 1 07/28/2019 05/26/2020 Inactive prednisone 20 mg tablet RxNorm: 146491 2 Tablet(s) Oral every day 1 07/28/2019 06/01/2020 Inactive Keflex 500 mg capsule RxNorm: 259161 1 Capsule(s) Oral three ti mes a day 05/24/2020 05/31/2020 Inactive naproxen 500 mg tablet RxNorm: 104339 1 Tablet(s) Oral two time s a day 05/10/2020 05/14/2020 Inactive dicyclomine 20 mg tablet RxNorm: 907146 TAKE 1 TABLET B Y MOUTH THREE TIMES DAILY 04/07/2020 05/30/2020 Inactive Singulair 10 mg tablet RxNorm: 735897 TAKE 1 TABLET BY MOUTH AT BEDTIME 04/07/2020 04/07/2020 Inactive meclizine 25 mg tablet RxNorm: 823455 1 Tablet(s) Oral three times a day as needed Dizziness 04/05/2020 No Stop Date Active Tessalon Perles 100 mg capsule RxNorm: 796933 2 Capsule (s) Oral three times a day as needed cough 03/22/2020 04/05/2020 Inactive Xyzal 5 mg tablet RxNorm: 904930 1 Tablet(s) Oral every day 020 07/20/2020 Inactive prednisone 20 mg tablet RxNorm: 937643 2 Tablet(s) Oral every day 1 03/26/2020 Inactive naproxen 500 mg tablet RxNorm: 266612 1 Tablet(s) Oral two time s a day 03/17/2020 03/22/2020 Inactive mupirocin 2 % topical ointment RxNorm: 107486 1 Application Top ical as directed 03/15/2020 04/05/2020 Inactive naproxen 500 mg tablet RxNorm: 335342 1 Tablet(s) Oral two time s a day 03/11/2020 03/16/2020 Inactive Kenalog 40 mg/mL suspension for injection RxNorm: 2110249 1 Milliliter(s) Injection 03/11/2020 03/11/2020 Inactive Zithromax Z-David 250 mg tablet RxNorm: 444449 Tablet(s) Oral as directed 03/11/2020 04/05/2020 Inactive baclofen 20 mg tablet RxNorm: 107384 TAKE 1 TABLET BY M OUTH TWICE DAILY WITH FOOD OR MILK 03/09/2020 06/29/2020 Inactive Toviaz 4 mg tablet,extended release RxNorm: 309259 1 Tablet(s) Oral every day 02/17/2020 04/05/2020 Inactive Toviaz 4 mg tablet,extended release RxNorm: 904250 1 Tablet(s) Oral every day 02/17/2020 09/14/2020 Inactive dicyclomine 20 mg tablet RxNorm: 043492 1 Tablet(s) Oral three times a day 02/13/2020 04/06/2020 Inactive Flonase Allergy Relief 50 mcg/actuation nasal spray,suspensi on RxNorm: 2853734 2 [place] Nasal every day 02/13/2020 05/30/2020 Inactive ceftriaxone 500 mg solution for injection RxNorm: 6718803 Injection 01/14/2020 01/14/2020 Inactive Cipro 500 mg tablet RxNorm: 989481 1 Tablet(s) Oral two times a day 01/14/2020 01/24/2020 Inactive ceftriaxone 500 mg solution for injection RxNorm: 9604680 Injection 12/30/2019 12/30/2019 Inactive prednisone 20 mg tablet RxNorm: 306215 2 Tablet(s) Oral every day 0 12/30/2019 01/03/2020 Inactive Singulair 10 mg tablet RxNorm: 331768 1 Tablet(s) Oral every ni ght at bedtime 12/30/2019 04/06/2020 Inactive Keflex 500 mg capsule RxNorm: 653018 1 Capsule(s) Oral three ti mes a day 12/30/2019 01/09/2020 Inactive Vagifem 10 mcg vaginal tablet RxNorm: 187746 INSERT 1 T ABLET TWO TIMES A WEEK PV 12/15/2019 05/30/2020 Inactive pantoprazole 40 mg tablet,delayed release RxNorm: 938301 TAKE 1 TABLET BY MOUTH ONCE DAILY 12/15/2019 06/11/2020 Inactive baclofen 20 mg tablet RxNorm: 513705 1T PO BID WITH FOOD OR MILK 03/08/2020 Inactive prednisone 20 mg tablet RxNorm: 576001 2 Tablet(s) Oral every day 0 12/02/2019 12/07/2019 Inactive Cipro 500 mg tablet RxNorm: 897190 1 Tablet(s) Oral two times a day add on to the 7 days for a total of 10 days 12/02/2019 12/05/2019 Inactive Macrobid 100 mg capsule RxNorm: 387210 1 Capsule(s) Oral two ti mes a day 11/20/2019 11/27/2019 Inactive Macrobid 100 mg capsule RxNorm: 096030 1 Capsule(s) Oral two ti mes a day 11/20/2019 11/19/2019 Inactive cranberry concentrate-ascorbic acid 4,200 mg-20 mg capsule R xNorm: 1 Capsule(s) Oral every day 11/06/2019 No Stop Date Active Claritin 10 mg tablet RxNorm: 536627 1 Tablet(s) Oral every day No Stop Date Active biotin 5,000 mcg disintegrating tablet RxNorm: 8940910 1 Tablet(s) Oral every day 11/06/2019 No Stop Date Active Fetzima 120 mg capsule,extended release RxNorm: 2430222 1 Capsule(s) Oral every day 11/06/2019 No Stop Date Active Vitamin C 1,000 mg tablet RxNorm: 161062 2 Tablet(s) Oral every day 11/06/2019 No Stop Date Active Calcium 500 500 mg calcium (1,250 mg) tablet RxNorm: 687161 1 Tablet(s) Oral every day 11/06/2019 No Stop Date Active Depakote ER 500 mg tablet,extended release RxNorm: 7622247 2 Tablet(s) Oral every night at bedtime 11/06/2019 No Stop Date Active hydroxyzine HCl 10 mg tablet RxNorm: 430559 3 Tablet(s) Oral as needed 11/06/2019 No Stop Date Active Voltaren 1 % topical gel RxNorm: 499661 Topical as needed 0 No Stop Date Active Benadryl Allergy 25 mg tablet RxNorm: 1802860 2 Tablet(s ) Oral every night at bedtime 11/06/2019 06/21/2020 Inactive Vagifem 10 mcg vaginal tablet RxNorm: 082077 Tablet(s) Vaginal 2 times weekly 11/06/2019 12/14/2019 Inactive pantoprazole 40 mg tablet,delayed release RxNorm: 884187 1 Tablet(s) Oral every day 11/06/2019 12/14/2019 Inactive estradiol 2 mg tablet RxNorm: 990581 1 Tablet(s) Oral every day 06/21/2020 Inactive Flonase Allergy Relief 50 mcg/actuation nasal spray,suspensi on RxNorm: 1778796 1 [place] Nasal every day 11/06/2019 02/12/2020 Inactive ibuprofen 600 mg tablet RxNorm: 916035 1 Tablet(s) Oral as needed 0 11/06/2019 06/21/2020 Inactive Vitamin D3 50 mcg (2,000 unit) tablet RxNorm: 022453 2 Tablet(s ) Oral every day 11/06/2019 01/24/2021 Inactive baclofen 20 mg tablet RxNorm: 524194 1 Tablet(s) Oral two times a day 11/06/2019 12/14/2019 Inactive Boniva 150 mg tablet RxNorm: 787018 1 Tablet(s) Oral monthly 201906/21/2020 Inactive dicyclomine 20 mg tablet RxNorm: 181860 1 Tablet(s) Oral three times a day 11/06/2019 02/12/2020 Inactive Miralax 17 gram/dose oral powder RxNorm: 963214 Oral as needed 10/1701/03/2021 Inactive B Complex-Vitamin B12 oral RxNorm: 82028 oral 11/06/2019 Active Reclast intravenous RxNorm: 221535 intravenous 06/22/2020 Ac tive Probiotic oral RxNorm: 6205 oral 11/06/2019 Active Ocuvite Adult 50 Plus oral RxNorm: oral 11/06/2019 Ac tive Multivitamin 50 Plus oral RxNorm: oral 11/06/2019 Act mitchell Medication Administered Medication Codes Instructions Start Date Status ceftriaxone 500 mg solution for injection RxNorm: 3277675 03/15/2022 No longer Active ceftriaxone 500 mg solution for injection RxNorm: 7074807 03/14/2022 No longer Active ceftriaxone 500 mg solution for injection RxNorm: 9967876 03/13/2022 No longer Active ceftriaxone 500 mg solution for injection RxNorm: 2976405 03/10/2022 No longer Active ceftriaxone 500 mg solution for injection RxNorm: 1841887 03/09/2022 No longer Active ceftriaxone 500 mg solution for injection RxNorm: 2846501 10/27/2021 No longer Active Kenalog 40 mg/mL suspension for injection RxNorm: 7769616 1Milli liter 11/23/2020 No longer Active Kenalog 40 mg/mL suspension for injection RxNorm: 2222305 Millilite r 10/29/2020 No longer Active Kenalog 40 mg/mL suspension for injection RxNorm: 8474440 1Milli liter 03/11/2020 No longer Active ceftriaxone 500 mg solution for injection RxNorm: 1901437 01/14/2020 No longer Active ceftriaxone 500 mg solution for injection RxNorm: 9635516 12/30/2019 No longer Active Immunizations Vaccine Codes Dose Date Status Influenza CVX: 150 0.5 04/08/2021 Complete Influenza CVX: 150 0.5 04/07/2020 Complete Tetanus/Diptheria CVX: 09 12/16/2016 Zoster CVX: 121 12/17/2007 Results Observation Observation Code Item Item Code Result Date S vice Location CULTURE, URINE M100 URINE CULTURE See Note 04/28/2022 Unknown Urinalysis Ord28 U-Color Yellow 04/24/2022 Unknown Urinalysis Ord28 U-Clarity Cloudy 04/24/2022 Unknown Urinalysis Ord28 U-Gluc Negative 04/24/2022 Unknown Urinalysis Ord28 U-Bili Small 04/24/2022 Unknown Urinalysis Ord28 U-Ketone Trace 04/24/2022 Unknown Urinalysis Ord28 U-SG >=1.030 04/24/2022 Unknown Urinalysis Ord28 U-Blood Large 04/24/2022 Unknown Urinalysis Ord28 U-pH 5.5 04/24/2022 Unknown Urinalysis Ord28 U-Protein >=300 mg/dL 04/24/2022 Unkno wn Urinalysis Ord28 U-Urobilin 0.2 E.U./dL E.U./dL 04/24/20 22 Unknown Urinalysis Ord28 U-Nitrites Negative 04/24/2022 Unknown Urinalysis Ord28 U-Leuk Large 04/24/2022 Unknown Urinalysis Ord28 U-Bact 4+ 04/24/2022 Unknown Urinalysis Ord28 U-Squamous Epi 0-5 per/HPF 04/24/2022 U nknown Urinalysis Ord28 U-Crystal None per/HPF 04/24/2022 Unkno wn Urinalysis Ord28 U-Mucus None 04/24/2022 Unknown Urinalysis Ord28 U-Renal tubular epi None 2 Unknown Urinalysis Ord28 U-RBC 20-30 per/HPF 04/24/2022 Unkn own Urinalysis Ord28 U-Transitional epi 0-5 per/HPF 04/24/20 22 Unknown Urinalysis Ord28 U-WBC TNTC per/HPF 04/24/2022 Unkno wn Urinalysis Ord28 U-Cast None per/lpf 04/24/2022 Unkno wn Urinalysis Ord28 U-VOL VOLUME INSUFFICIENT (<10m L) RESULTS MAY BE AFFECTED 04/24/2022 Unknown Urinalysis Ord28 U-Com Culture to follow 04/24/2022 Unknown Urinalysis Ord28 U-Yeast NEGATIVE 04/24/2022 Unknown Urinalysis Ord28 U-Color Yellow 02/24/2022 Unknown Urinalysis Ord28 U-Clarity Cloudy 02/24/2022 Unknown Urinalysis Ord28 U-Gluc Negative 02/24/2022 Unknown Urinalysis Ord28 U-Bili Negative 02/24/2022 Unknown Urinalysis Ord28 U-Ketone Negative 02/24/2022 Unknown Urinalysis Ord28 U-SG 1.015 02/24/2022 Unknown Urinalysis Ord28 U-Blood Moderate 02/24/2022 Unknown Urinalysis Ord28 U-pH 6.0 02/24/2022 Unknown Urinalysis Ord28 U-Protein 30 mg/dL 02/24/2022 Unknown Urinalysis Ord28 U-Urobilin 0.2 E.U./dL E.U./dL 02/25/20 22 Unknown Urinalysis Ord28 U-Nitrites Positive 02/24/2022 Unknown Urinalysis Ord28 U-Leuk Large 02/24/2022 Unknown Urinalysis Ord28 U-Bact 2+ 02/24/2022 Unknown Urinalysis Ord28 U-Squamous Epi None per/HPF 02/24/2022 Unknown Urinalysis Ord28 U-Crystal None per/HPF 02/24/2022 Unkno wn Urinalysis Ord28 U-Mucus None 02/24/2022 Unknown Urinalysis Ord28 U-Renal tubular epi None Unknown Urinalysis Ord28 U-RBC 10-20 per/HPF 02/24/2022 Unkn own Urinalysis Ord28 U-Transitional epi None per/HPF 022 Unknown Urinalysis Ord28 U-WBC TNTC per/HPF 02/24/2022 Unkno wn Urinalysis Ord28 U-Cast None per/lpf 02/24/2022 Unkno wn Urinalysis Ord28 U-VOL VOLUME SUFFICIENT (10mL) 02/2022 Unknown Urinalysis Ord28 U-Yeast NEGATIVE 02/24/2022 Unknown Urinalysis Ord28 U-Com Culture to follow 02/24/2022 Unknown CULTURE, URINE M100 URINE CULTURE See Note 12/06/2021 Unknown CULTURE, URINE M100 URINE CULTURE See Note 05/23/2021 Unknown Comp Metabolic Eze245 NA 128 mEq/L 05/18/2021 Unkn own Comp Metabolic Pjm465 K 5.0 mEq/L 05/18/2021 Unkn own Comp Metabolic Fqz686 CL 93 mEq/L 05/18/2021 Unkn own Comp Metabolic Oii258 CO2 29.0 mEq/L 05/18/2021 Unk nown Comp Metabolic Heu238 ANION GAP 11 05/18/2021 Unkn own Comp Metabolic Oke977 GLUCOSE 80 mg/dL 05/18/2021 Unkn own Comp Metabolic Rsw831 Creat 0.7 mg/dL 05/18/2021 Unkn own Comp Metabolic Azk023 eGFR 87 ml/min/1.73m2 05/18/20 21 Unknown Comp Metabolic Nfk307 BUN 9 mg/dL 05/18/2021 Unkn own Comp Metabolic Ggr126 B/C Ratio 12.5 Ratio 05/18/2021 Unk nown Comp Metabolic Xxe460 CALCIUM 8.7 mg/dL 05/18/2021 Unkn own Comp Metabolic Ozo516 ALK PHOS 65 U/L 05/18/2021 Unkn own Comp Metabolic Weu015 AST(SGOT) 9 U/L 05/18/2021 Unkn own Comp Metabolic Fpd948 ALT(SGPT) 7 U/L 05/18/2021 Unkn own Comp Metabolic Fjc114 BILI T 0.3 mg/dL 05/18/2021 Unkn own Comp Metabolic Ntb361 ALBUMIN 4.0 g/dL 05/18/2021 Unkn own Comp Metabolic Kcr309 TPRO 6.0 g/dL 05/18/2021 Unkn own Comp Metabolic Fwy525 GLOB 2.1 g/dL 05/18/2021 Unkn own Comp Metabolic Xqw748 A/G Ratio 1.9 Ratio 05/18/2021 Unkn own Comp Metabolic Vgv133 Osmo 255 mOsmo 05/18/2021 Unkn own C-Reactive Protein Qnt Crqnt CRP 0.1 mg/dl 2020 Unknown Sed Rate Ord21 ESR 5 mm/hr 04/15/2021 Unknown Ra Factor Tap954 RA FACTOR <10 IU/ml 04/15/2021 Unknown CULTURE, URINE M100 URINE CULTURE See Note 2020 Unknown Urinalysis Ord28 U-Color Brown 12/22/2020 Unknown Urinalysis Ord28 U-Clarity Turbid 12/22/2020 Unknown Urinalysis Ord28 U-Gluc 100 mg/dL 12/22/2020 Unknown Urinalysis Ord28 U-Bili Small 12/22/2020 Unknown Urinalysis Ord28 U-Ketone 15 mg/dL 12/22/2020 Unknown Urinalysis Ord28 U-SG 1.020 12/22/2020 Unknown Urinalysis Ord28 U-Blood Large 12/22/2020 Unknown Urinalysis Ord28 U-pH 6.0 12/22/2020 Unknown Urinalysis Ord28 U-Protein >=300 mg/dL 12/22/2020 Unkno wn Urinalysis Ord28 U-Urobilin 1.0 E.U./dL E.U./dL 12/23/19 21 Unknown Urinalysis Ord28 U-Nitrites Positive 12/22/2020 Unknown Urinalysis Ord28 U-Leuk Small 12/22/2020 Unknown Urinalysis Ord28 U-Bact QNS FOR MICROSCOPIC EXAM 12/2020 Unknown Urinalysis Ord28 U-Squamous Epi QNS FOR MICROSCOPIC EXAM per/HPF 12/22/2020 Unknown Urinalysis Ord28 U-Crystal QNS FOR MICROSCOPIC EXAM per/ HPF 12/22/2020 Unknown Urinalysis Ord28 U-Mucus QNS FOR MICROSCOPIC EXAM 12/2020 Unknown Urinalysis Ord28 U-Renal tubular epi QNS FOR MICROSCOPIC EXAM 12/22/2020 Unknown Urinalysis Ord28 U-RBC QNS FOR MICROSCOPIC EXAM per/ HPF 12/22/2020 Unknown Urinalysis Ord28 U-Transitional epi QNS FOR MICROSCOP IC EXAM per/HPF 12/22/2020 Unknown Urinalysis Ord28 U-WBC QNS FOR MICROSCOPIC EXAM per/ HPF 12/22/2020 Unknown Urinalysis Ord28 U-Cast QNS FOR MICROSCOPIC EXAM per/ lpf 12/22/2020 Unknown Urinalysis Ord28 U-VOL QNS FOR MICROSCOPIC EXAM 12/2020 Unknown Urinalysis Ord28 U-Com CULTURE TO FOLLOW 12/22/2020 Unknown Urinalysis Ord28 U-Yeast QNS FOR MICROSCOPIC EXAM 12/2020 Unknown CULTURE, URINE M100 URINE CULTURE See Note 07/18/2020 Unknown Urinalysis Ord28 U-Color Yellow 07/14/2020 Unknown Urinalysis Ord28 U-Clarity Slightly Cloudy 07/14/2020 U nknown Urinalysis Ord28 U-Gluc Negative 07/14/2020 Unknown Urinalysis Ord28 U-Bili Negative 07/14/2020 Unknown Urinalysis Ord28 U-Ketone Negative 07/14/2020 Unknown Urinalysis Ord28 U-SG 1.015 07/14/2020 Unknown Urinalysis Ord28 U-Blood Negative 07/14/2020 Unknown Urinalysis Ord28 U-pH 7.0 07/14/2020 Unknown Urinalysis Ord28 U-Protein Negative 07/14/2020 Unknown Urinalysis Ord28 U-Urobilin 0.2 E.U./dL E.U./dL 07/14/19 21 Unknown Urinalysis Ord28 U-Nitrites Negative 07/14/2020 Unknown Urinalysis Ord28 U-Leuk Negative 07/14/2020 Unknown Urinalysis Ord28 U-Bact None 07/14/2020 Unknown Urinalysis Ord28 U-Squamous Epi 0-5 per/HPF 07/14/2020 U nknown Urinalysis Ord28 U-Crystal None per/HPF 07/14/2020 Unkno wn Urinalysis Ord28 U-Mucus None 07/14/2020 Unknown Urinalysis Ord28 U-Renal tubular epi None Unknown Urinalysis Ord28 U-RBC None per/HPF 07/14/2020 Unkno wn Urinalysis Ord28 U-Transitional epi None per/HPF 021 Unknown Urinalysis Ord28 U-WBC None per/HPF 07/14/2020 Unkno wn Urinalysis Ord28 U-Cast None per/lpf 07/14/2020 Unkno wn Urinalysis Ord28 U-VOL VOLUME SUFFICIENT (10mL) Unknown Urinalysis Ord28 U-Yeast NEGATIVE 07/14/2020 Unknown Urinalysis Ord28 U-Com Culture to follow 07/14/2020 Unknown KATTY (DEMETRIUS) ROUTINE F307 Antinuclear Antibody Negative 06/28/2020 Unknown Ra Factor Jcs132 RA FACTOR <10 IU/ml 06/25/2020 Unknown C-Reactive Protein Qnt Crqnt CRP 0.3 mg/dl 2020 Unknown Sed Rate Ord21 ESR 13 mm/hr 06/25/2020 Unknown CULTURE, URINE M100 URINE CULTURE See Note 02/12/2020 Unknown CULTURE, URINE M100 URINE CULTURE See Note 01/19/2020 Unknown Cbc With Differential Ord2 WBC 12.91 K/ul 020 Unknown Cbc With Differential Ord2 RBC 4.32 M/ul 01/14/20 20 Unknown Cbc With Differential Ord2 HGB 13.3 g/dl 01/14/20 20 Unknown Cbc With Differential Ord2 Neut% 62.9 % 01/14/20 20 Unknown Cbc With Differential Ord2 HCT 40.6 % 01/14/20 20 Unknown Cbc With Differential Ord2 MCV 94.0 fl 01/14/20 20 Unknown Cbc With Differential Ord2 Lymph% 28.5 % 01/14/20 20 Unknown Cbc With Differential Ord2 MCH 30.8 pg 01/14/20 20 Unknown Cbc With Differential Ord2 [place]% 7.8 % 01/14/20 20 Unknown Cbc With Differential Ord2 MCHC 32.8 pg 01/14/20 20 Unknown Cbc With Differential Ord2 Eos% 0.4 % 01/14/20 20 Unknown Cbc With Differential Ord2 PLT 326 K/ul 01/14/20 20 Unknown Cbc With Differential Ord2 Baso% 0.4 % 01/14/20 20 Unknown Cbc With Differential Ord2 RDW 13.1 % 01/14/20 20 Unknown Cbc With Differential Ord2 Neut ABS# 8.12 K/ul 01/14/20 20 Unknown Cbc With Differential Ord2 Lymph ABS# 3.68 K/ul 020 Unknown Cbc With Differential Ord2 [place] ABS# 1.0 K/ul 01/14/20 20 Unknown Cbc With Differential Ord2 Eos ABS# 0.1 K/ul 01/14/20 20 Unknown Cbc With Differential Ord2 Baso ABS# 0.1 K/ul 01/14/20 20 Unknown Comp Metabolic Kzi518 NA 130 mEq/L 01/14/2020 Unkn own Comp Metabolic Jqx454 K 4.6 mEq/L 01/14/2020 Unkn own Comp Metabolic Vuj787 CL 92 mEq/L 01/14/2020 Unkn own Comp Metabolic Lbx181 CO2 31.0 mEq/L 01/14/2020 Unk nown Comp Metabolic Btz044 ANION GAP 12 01/14/2020 Unkn own Comp Metabolic Vdd746 GLUCOSE 81 mg/dL 01/14/2020 Unkn own Comp Metabolic Kga446 Creat 0.8 mg/dL 01/14/2020 Unkn own Comp Metabolic Kgw468 eGFR 77 ml/min/1.73m2 01/14/20 20 Unknown Comp Metabolic Xae582 BUN 12 mg/dL 01/14/2020 Unkn own Comp Metabolic Lny251 B/C Ratio 15.0 Ratio 01/14/2020 Unk nown Comp Metabolic Sbw943 CALCIUM 9.2 mg/dL 01/14/2020 Unkn own Comp Metabolic Wln709 ALK PHOS 71 U/L 01/14/2020 Unkn own Comp Metabolic Mgj191 AST(SGOT) 13 U/L 01/14/2020 Unkn own Comp Metabolic Npl356 ALT(SGPT) 11 U/L 01/14/2020 Unkn own Comp Metabolic Pwl315 BILI T 0.4 mg/dL 01/14/2020 Unkn own Comp Metabolic Akb911 ALBUMIN 3.9 g/dL 01/14/2020 Unkn own Comp Metabolic Khq585 TPRO 6.2 g/dL 01/14/2020 Unkn own Comp Metabolic Mmc451 GLOB 2.3 g/dL 01/14/2020 Unkn own Comp Metabolic Jkg090 A/G Ratio 1.7 Ratio 01/14/2020 Unkn own Comp Metabolic Sad551 Osmo 260 mOsmo 01/14/2020 Unkn own CULTURE, URINE M100 URINE CULTURE See Note 01/02/2020 Unknown CULTURE, URINE M100 URINE CULTURE See Note 11/24/2019 Unknown Urinalysis Ord28 U-Color [place] 11/20/2019 Unknown Urinalysis Ord28 U-Clarity Cloudy 11/20/2019 Unknown Urinalysis Ord28 U-Gluc Negative 11/20/2019 Unknown Urinalysis Ord28 U-Bili Negative 11/20/2019 Unknown Urinalysis Ord28 U-Ketone Trace 11/20/2019 Unknown Urinalysis Ord28 U-SG 1.015 11/20/2019 Unknown Urinalysis Ord28 U-Blood Large 11/20/2019 Unknown Urinalysis Ord28 U-pH 5.5 11/20/2019 Unknown Urinalysis Ord28 U-Protein 30 mg/dL 11/20/2019 Unknown Urinalysis Ord28 U-Urobilin 0.2 E.U./dL E.U./dL 11/20/19 20 Unknown Urinalysis Ord28 U-Nitrites Negative 11/20/2019 Unknown Urinalysis Ord28 U-Leuk Moderate 11/20/2019 Unknown Urinalysis Ord28 U-Bact TRACE 11/20/2019 Unknown Urinalysis Ord28 U-Squamous Epi None per/HPF 11/20/2019 Unknown Urinalysis Ord28 U-Crystal None per/HPF 11/20/2019 Unkno wn Urinalysis Ord28 U-Mucus None 11/20/2019 Unknown Urinalysis Ord28 U-Renal tubular epi None 0 Unknown Urinalysis Ord28 U-RBC TNTC per/HPF 11/20/2019 Unkno wn Urinalysis Ord28 U-Transitional epi None per/HPF 020 Unknown Urinalysis Ord28 U-WBC 75-100 per/HPF 11/20/2019 Unk nown Urinalysis Ord28 U-Cast None per/lpf 11/20/2019 Unkno wn Urinalysis Ord28 U-VOL VOLUME SUFFICIENT (10mL) 09/2019 Unknown Urinalysis Ord28 U-Com Urine saved if culture needed (specimen acceptable for 48 hours from collection if refrigerated) 11/20/2019 Unknown Urinalysis Ord28 U-Yeast NEGATIVE 11/20/2019 Unknown Procedures Procedure Codes Date PPPS, SUBSEQ VISIT CPT-4: G0439 07/24/2022 DEPRESSION SCREEN ANNUAL CPT-4: G0444 07/24/2022 THER/PROPH/DIAG INJ SC/IM CPT-4: 01348 03/15/2022 ROCEPHIN, PER 250 MG CPT-4: J0696 03/15/2022 THER/PROPH/DIAG INJ SC/IM CPT-4: 41804 03/14/2022 ROCEPHIN, PER 250 MG CPT-4: J0696 03/14/2022 THER/PROPH/DIAG INJ SC/IM CPT-4: 42515 03/13/2022 ROCEPHIN, PER 250 MG CPT-4: J0696 03/13/2022 THER/PROPH/DIAG INJ SC/IM CPT-4: 31929 03/10/2022 ROCEPHIN, PER 250 MG CPT-4: J0696 03/10/2022 THER/PROPH/DIAG INJ SC/IM CPT-4: 55995 03/09/2022 ROCEPHIN, PER 250 MG CPT-4: J0696 03/09/2022 THER/PROPH/DIAG INJ SC/IM CPT-4: 34057 10/27/2021 ROCEPHIN, PER 250 MG CPT-4: J0696 10/27/2021 URINALYSIS NONAUTO W/O SCOPE CPT-4: 30113 05/18/2021 IIV4 VACC NO PRSV 0.5 ML IM CPT-4: 27016 04/08/2021 IIV4 VACC NO PRSV 0.5 ML IM CPT-4: 08130 04/08/2021 ADMIN INFLUENZA VIRUS VAC CPT-4: G0008 04/08/2021 TRIAMCINOLONE ACET INJ NOS 10 mg CPT-4: J3301 021 DRAIN/INJECT JOINT/BURSA CPT-4: 63235 11/17/2020 TRIAMCINOLONE ACET INJ NOS 10 mg CPT-4: J3301 021 IIV4 VACC NO PRSV 0.5 ML IM CPT-4: 37079 04/07/2020 ADMIN INFLUENZA VIRUS VAC CPT-4: G0008 04/07/2020 IIV4 VACC NO PRSV 0.5 ML IM CPT-4: 42252 04/07/2020 URINALYSIS NONAUTO W/O SCOPE CPT-4: 91058 03/16/2020 TRIAMCINOLONE ACET INJ NOS 10 mg CPT-4: J3301 020 THER/PROPH/DIAG INJ SC/IM CPT-4: 65220 03/11/2020 THER/PROPH/DIAG INJ SC/IM CPT-4: 54543 01/14/2020 ROCEPHIN, PER 250 MG CPT-4: J0696 01/14/2020 ROCEPHIN, PER 250 MG CPT-4: J0696 12/30/2019 THER/PROPH/DIAG INJ SC/IM CPT-4: 74468 12/30/2019 Vital Signs Date Vital 10/31/2022 Blood Pressure 1: 136/72 Code: 8480-6 BMI: 28.2 Code: 31017-4 Heart Rate 1: 100 bpm Height: 5'3" Code: 8302-2 SpO2: 98% Temperature: 3 5.9 (C) / 96.7 (F) Weight: 159 lbs Code: 77988-8 10/17/2022 Blood Pressure 1: 132/80 Code: 8480-6 Heart Rate 1: 96 bpm Height: 5'3" Code: 8302-2 SpO2: 96% Temperature: 36.1 (C) / 97.0 (F) 07/24/2022 Blood Pressure 1: 162/78 Code: 8480-6 BMI: 28.7 Code: 44422-4 Heart Rate 1: 89 bpm Height: 5'3" Code: 8302-2 SpO2: 100% Weight: 162 lb s Code: 52470-0 07/03/2022 Blood Pressure 1: 138/70 Code: 8480-6 Heart Rate 1: 72 bpm Height: Code: 8302-2 Respiratory Rate: 16 bpm SpO2: 95% Weight: 163 lbs Code: 46767-2 03/09/2022 Blood Pressure 1: 142/84 Code: 8480-6 BMI: 29.8 Code: 17733-2 Heart Rate 1: 87 bpm Height: 5'3" Code: 8302-2 SpO2: 98% Temperature: 3 6.3 (C) / 97.3 (F) Weight: 168 lbs Code: 30162-8 10/27/2021 Blood Pressure 1: 134/78 Code: 8480-6 BMI: 28.9 Code: 82439-0 Heart Rate 1: 88 bpm Height: 5'3" Code: 8302-2 SpO2: 97% Temperature: 3 6.1 (C) / 96.9 (F) Weight: 163 lbs Code: 68750-9 09/28/2021 Blood Pressure 1: 142/84 Code: 8480-6 BMI: 28.9 Code: 47922-3 Heart Rate 1: 67 bpm Height: 5'3" Code: 8302-2 SpO2: 96% Temperature: 3 5.9 (C) / 96.7 (F) Weight: 163 lbs Code: 86449-4 09/02/2021 Blood Pressure 1: 142/84 Code: 8480-6 BMI: 28.9 Code: 22964-4 Heart Rate 1: 95 bpm Height: 5'3" Code: 8302-2 SpO2: 99% Temperature: 3 6.3 (C) / 97.4 (F) Weight: 163 lbs Code: 73090-4 06/01/2021 Blood Pressure 1: 126/80 Code: 8480-6 BMI: 28.0 Code: 18246-1 Heart Rate 1: 84 bpm Height: 5'3" Code: 8302-2 SpO2: 96% Temperature: 3 6.2 (C) / 97.1 (F) Weight: 158 lbs Code: 72267-4 05/18/2021 Blood Pressure 1: 152/76 Code: 8480-6 Heart Rate 1: 68 bpm Height: Code: 8302-2 Temperature: 36.3 (C) / 97.3 (F) Weight: Code: 67755- 7 03/03/2021 Blood Pressure 1: 132/80 Code: 8480-6 Heart Rate 1: 88 bpm Height: Code: 8302-2 Weight: Code: 46864-4 02/01/2021 Blood Pressure 1: 146/82 Code: 8480-6 Heart Rate 1: 84 bpm Height: 5'3" Code: 8302-2 Respiratory Rate: 16 bpm SpO2: 98% Temperature: 36 .2 (C) / 97.2 (F) Weight: Code: 34346-4 11/17/2020 Blood Pressure 1: 140/80 Code: 8480-6 Heart Rate 1: 72 bpm Height: 5'3" Code: 8302-2 SpO2: 100% Temperature: 36.1 (C) / 97.0 (F) Weight: Code: 87014-0 10/29/2020 Blood Pressure 1: 126/74 Code: 8480-6 BMI: 28.7 Code: 79966-5 Heart Rate 1: 86 bpm Height: 5'3" Code: 8302-2 SpO2: 99% Temperature: 3 6.3 (C) / 97.3 (F) Weight: 162 lbs Code: 01737-6 09/22/2020 Blood Pressure 1: 138/72 Code: 8480-6 BMI: 28.9 Code: 82500-4 Heart Rate 1: 74 bpm Height: 5'3" Code: 8302-2 Temperature: 35.9 (C) / 96.7 (F) Weight: 163 lbs Code: 72052-8 08/20/2020 Blood Pressure 1: 148/80 Code: 8480-6 BMI: 28.2 Code: 63215-9 Heart Rate 1: 94 bpm Height: 5'3" Code: 8302-2 SpO2: 95% Temperature: 3 6.3 (C) / 97.3 (F) Weight: 159 lbs Code: 89121-4 07/22/2020 Blood Pressure 1: 160/80 Code: 8480-6 Bl ood Pressure 1: 142/76 Code: 8480-6 BMI: 27.8 Code: 26037-3 Heart Rate 1: 84 bpm Height: 5'3" Code: 8302-2 Respiratory Rate: 18 bpm SpO2: 97% Temperature: 36.4 (C) / 97.5 (F) We ight: 157 lbs Code: 20933-3 07/16/2020 Blood Pressure 1: 140/78 Code: 8480-6 BMI: 27.8 Code: 45676-5 Heart Rate 1: 86 bpm Height: 5'3" Code: 8302-2 SpO2: 97% Temperature: 3 6.3 (C) / 97.3 (F) Weight: 157 lbs Code: 42736-7 06/22/2020 Blood Pressure 1: 162/84 Code: 8480-6 BMI: 27.8 Code: 02146-2 Heart Rate 1: 93 bpm Height: 5'3" Code: 8302-2 Respiratory Rate: 16 bpm SpO2: 100% Temperature: 36.2 (C) / 97.1 (F) Weight: 157 lbs Code: 75831-6 05/24/2020 Height: Code: 8302-2 Weight: Code: 294 63-7 04/05/2020 Blood Pressure 1: 132/74 Code: 8480-6 BMI: 26.9 Code: 01595-9 Heart Rate 1: 74 bpm Height: 5'3" Code: 8302-2 Weight: 152 lbs Code: 63488 -7 03/22/2020 Height: Code: 8302-2 Weight: Code: 294 63-7 03/16/2020 Height: Code: 8302-2 Weight: Code: 294 63-7 03/15/2020 Blood Pressure 1: 140/76 Code: 8480-6 Heart Rate 1: 82 bpm Height: 5'3" Code: 8302-2 SpO2: 97% Temperature: 37.2 (C) / 99.0 (F) 03/11/2020 BMI: 26.9 Code: 45207-6 Heart Rate 1: 80 bpm Hei ght: 5'3" Code: 8302-2 Weight: 152 lbs Code: 77210-1 02/17/2020 Blood Pressure 1: 134/72 Code: 8480-6 BMI: 27.3 Code: 60890-7 Heart Rate 1: 84 bpm Height: 5'3" Code: 8302-2 Respiratory Rate: 16 bpm SpO2: 96% Temperature: 36.2 (C) / 97.1 (F) Weight: 154 lbs Code: 29520-3 01/14/2020 Blood Pressure 1: 122/74 Code: 8480-6 Heart Rate 1: 87 bpm Height: Code: 8302-2 SpO2: 99% Temperature: 36.4 (C) / 97.6 (F) Weight: Code: 54705-1 12/30/2019 Height: Code: 8302-2 Weight: Code: 294 63-7 12/02/2019 Blood Pressure 1: 148/86 Code: 8480-6 BMI: 27.3 Code: 95210-3 Heart Rate 1: 96 bpm Height: 5'3" Code: 8302-2 SpO2: 98% Temperature: 3 7.2 (C) / 98.9 (F) Weight: 154 lbs Code: 85761-4 11/06/2019 Blood Pressure 1: 146/78 Code: 8480-6 BMI: 27.3 Code: 71727-9 Heart Rate 1: 94 bpm Height: 5'3" Code: 8302-2 SpO2: 98% Temperature: 3 6.3 (C) / 97.3 (F) Weight: 154 lbs Code: 07059-6 Functional Status No Functional Status data Reason For Visit Reason For Visit Effective Dates Notes hypertension 10/31/2022 depression 10/31/2022 back pain 10/17/2022 Annual Medicare Wellness Exam 07/24/2022 hypertension 07/03/2022 hypertension 03/09/2022 hypertension 10/27/2021 hypertension 09/28/2021 back pain 09/28/2021 sinus congestion 09/02/2021 cough 09/02/2021 nasal discharge 09/02/2021 hypertension 06/01/2021 arthritis 06/01/2021 hair loss 06/01/2021 constipation 06/01/2021 diarrhea 06/01/2021 oral lesion 05/18/2021 vaccination against influenza 04/08/2021 sores 03/03/2021 hypertension 02/01/2021 myalgias 02/01/2021 back pain 02/01/2021 back pain 11/17/2020 back pain 10/29/2020 hypertension 09/22/2020 hypertension 08/20/2020 hypertension 07/22/2020 dizziness 07/16/2020 breast complaint 06/22/2020 hypertension 06/22/2020 headache 05/24/2020 vaccination against influenza 04/07/2020 dizziness 04/05/2020 weakness 04/05/2020 skin lesion 03/22/2020 skin lesion 03/16/2020 skin lesion 03/15/2020 sinus congestion 03/11/2020 joint complaint 03/11/2020 pain 02/17/2020 hematuria 01/14/2020 dysuria 12/30/2019 sinus congestion 12/02/2019 cough 12/02/2019 pain 11/06/2019 sinus congestion 11/06/2019 Encounters Encounter Performer Location Location Address Codes Date ([id number]) 14966 EST. PATIENT, LEVEL IV Diagnosis: Essential (primary) hypertension[ICD10: I10] Diagnosis: Age-related osteoporosis with current pathological fracture with routine healing, subsequent encounter[ICD10: M80.00XD] Rubina Demarco MD, [facility] [address] [place] [address] CPT-4: 9921 4 10/31/2022 ([id number]) 55841 EST. PATIENT, LEVEL III Diagnosis: Compression fracture of L3 vertebra, initial encounter[ICD10: S32.030A] Diagnosis: Compression fracture of L5 vertebra, initial encounter[ICD10: S32.050A] Ara Demarco MD, [facility] [address] [place] [address] CPT-4: 15299 10/17/2022 ([id number] 24104 EST. PATIENT, LEVEL III Diagnosis: Essential (primary) hypertension[ICD10: I10] Rubina Demarco MD, [facility] [address] [place] [address] CPT-4: 9921 3 07/03/2022 ([id number]) 21185 EST. PATIENT, LEVEL IV Diagnosis: Essential (primary) hypertension[ICD10: I10] Diagnosis: Dysuria[ICD10: R30.0] Diagnosis: Urinary tract infection[ICD10: N39.0] Rubina Demarco MD, [facility] [address] [place] [address] CPT-4: 9921 4 03/09/2022 ([id number]) 29774 EST. PATIENT, LEVEL I Diagnosis: Urinary tract infection[ICD10: N39.0] Rubina Demarco MD, [facility] [address] [place] [address] CPT-4: 9921 1 12/02/2021 ([id number]) 95114 EST. PATIENT, LEVEL IV Diagnosis: Essential (primary) hypertension[ICD10: I10] Diagnosis: Non-traumatic compression fracture of L5 lumbar vertebra with routine healing, subsequent encounter[ICD10: M48.56XD] Diagnosis: Other chronic pain[ICD10: G89.29] Diagnosis: Dysuria[ICD10: R30.0] Diagnosis: Urinary tract infection[ICD10: N39.0] Rubina Demarco MD, [facility] [address] [place] [address] CPT-4: 9921 4 10/27/2021 ([id number]) 22917 EST. PATIENT, LEVEL IV Diagnosis: Essential (primary) hypertension[ICD10: I10] Diagnosis: Chronic back pain[ICD10: M54.9] Diagnosis: Nontraumatic compression fracture of L5 vertebra, initial encounter[ICD10: M48.56XA] Rubina Demarco MD, [facility] [address] [place] [address] CPT-4: 28582 09/28/2021 ([id number]) 21538 EST. PATIENT, LEVEL III Diagnosis: Other allergic rhinitis[ICD10: J30.89] Ara Stewart MD, [facility] [address] [place] [address] CPT-4: 9921 3 09/02/2021 ([id number]) 37307 EST. PATIENT, LEVEL IV Diagnosis: Essential (primary) hypertension[ICD10: I10] Diagnosis: Other chronic pain[ICD10: G89.29] Diagnosis: Chronic idiopathic constipation[ICD10: K59.04] Diagnosis: Hyponatremia[ICD10: E87.1] Rubina Demarco MD, [facility] [address] [place] [address] CPT-4: 72700 06/01/2021 ([id number]) 31760 EST. PATIENT, LEVEL IV Diagnosis: Essential (primary) hypertension[ICD10: I10] Diagnosis: Age-related osteoporosis without current pathological fracture[ICD10: M81.0] Diagnosis: Dysuria[ICD10: R30.0] Diagnosis: Oral candidiasis[ICD10: B37.0] Whitney Demarco MD, [facility] [address] [place] [address] CPT-4: 90587 05/18 ([id number]) Miscellaneous no charge Diagnosis: Laceration of right lower leg[ICD10: S81.811A] Rubina Demarco MD, [facility] [address] [place] [address] CPT-4: 9999 9 03/11/2021 ([id number]) 37734 EST. PATIENT, LEVEL I Diagnosis: Laceration of left lower leg[ICD10: S81.812A] Diagnosis: Laceration of right lower leg[ICD10: S81.811A] Rubina Demarco MD, [facility] [address] [place] [address] CPT-4: 9921 1 03/04/2021 ([id number]) 26193 EST. PATIENT, LEVEL III Diagnosis: Laceration of right lower leg[ICD10: S81.811A] Diagnosis: Laceration of left lower leg[ICD10: S81.812A] Ara Demarco MD, [facility] [address] [place] [address] CPT-4: 9921 3 03/03/2021 ([id number]) 94373 EST. PATIENT, LEVEL IV Diagnosis: Essential (primary) hypertension[ICD10: I10] Diagnosis: Low back pain[ICD10: M54.5] Diagnosis: Chronic back pain[ICD10: M54.9] Rubina wills MD, [facility] [address] [place] [address] CPT-4: 9921 4 02/01/2021 45139 EST. PATIENT, LEVEL III Diagnosis: Pain of right sacroiliac joint[ICD10: M53.3] Diagnosis: Chronic back pain[ICD10: M54.9] Samara Demarco MD , [facility] [address] [place] [address] CPT-4: 94412 11/17 ([id number]) 88844 EST. PATIENT, LEVEL III Diagnosis: Pain of left sacroiliac joint[ICD10: M53.3] Diagnosis: Low back pain[ICD10: M54.5] Diagnosis: Nicotine dependence, cigarettes, uncomplicated[ICD10: F17.210] Ara Demarco MD, [facility] [address] [place] [address] CPT-4: 85861 10/29/2020 ([id number]) 51401 EST. PATIENT, LEVEL IV Diagnosis: Essential (primary) hypertension[ICD10: I10] Diagnosis: Weakness[ICD10: R53.1] Diagnosis: Generalized osteoarthritis[ICD10: M15.9] Diagnosis: Fibromyalgia[ICD10: M79.7] Rubina Demarco MD, [facility] [address] [place] [address] CPT-4: 58631 09/22/2020 ([id number]) 30294 EST. PATIENT, LEVEL III Diagnosis: Essential (primary) hypertension[ICD10: I10] Ara Demarco MD, [facility] [address] [place] [address] CPT-4: 9921 3 08/20/2020 ([id number]) 12887 EST. PATIENT, LEVEL III Diagnosis: Essential (primary) hypertension[ICD10: I10] Rubina Demarco MD, [facility] [address] [place] [address] CPT-4: 9921 3 07/22/2020 ([id number]) 70160 EST. PATIENT, LEVEL III Diagnosis: Dysuria[ICD10: R30.0] Diagnosis: Benign paroxysmal positional vertigo, bilateral[ICD10: H81.13] Ara Demarco MD, [facility] [address] [place] [address] CPT-4: 80648 07/16/2020 ([id number]) 87890 EST. PATIENT, LEVEL IV Diagnosis: Essential (primary) hypertension[ICD10: I10] Diagnosis: Chronic back pain[ICD10: M54.9] Diagnosis: Weakness[ICD10: R53.1] Diagnosis: Fibromyalgia[ICD10: M79.7] Diagnosis: Generalized osteoarthritis[ICD10: M15.9] Diagnosis: Breast pain, left[ICD10: N64.4] Rubina wills MD, [facility] [address] [place] [address] CPT-4: 9921 4 06/22/2020 ([id number]) 51201 EST. PATIENT, LEVEL III Diagnosis: Cough[ICD10: R05] Diagnosis: Acute recurrent maxillary sinusitis[ICD10: J01.01] Ara Boland Located [facility] [address] [place] [address] CPT-4: 9921 3 05/24/2020 11425 EST. PATIENT, LEVEL III Diagnosis: Benign paroxysmal positional vertigo, bilateral[ICD10: H81.13] Diagnosis: Weakness[ICD10: R53.1] Diagnosis: Imbalance[ICD10: R26.89] Diagnosis: Frequent falls[ICD10: R29.6] Samara Demarco MD, [facility] [address] [place] [address] CPT-4: 17662 04/05/2020 53539 EST. PATIENT, LEVEL III Diagnosis: Skin tear of right forearm without complication, subsequent encounter[ICD10: S51.811D] Diagnosis: Other allergic rhinitis[ICD10: J30.89] Diagnosis: Rib pain on left side[ICD10: R07.81] Samara Demarco MD, [facility] [address] [place] [address] CPT-4: 9921 3 03/22/2020 58112 EST. PATIENT, LEVEL II Diagnosis: Skin tear of right forearm without complication, subsequent encounter[ICD10: S51.811D] Diagnosis: Dysuria[ICD10: R30.0] Samara Demarco MD, [facility] [address] [place] [address] CPT-4: 30841 03/16/2020 03661 EST. PATIENT, LEVEL III Diagnosis: Right shoulder pain[ICD10: M25.511] Diagnosis: Right knee pain[ICD10: m25.561] Diagnosis: Skin tear of right forearm without complication[ICD10: S51.811A] Samara Demarco MD, [facility] [address] [place] [address] CPT-4: 99461 03/15/2020 14074 EST. PATIENT, LEVEL IV Diagnosis: Other acute sinusitis[ICD10: J01.80] Diagnosis: Other allergic rhinitis[ICD10: J30.89] Diagnosis: Right knee pain[ICD10: m25.561] Samara Demarco MD , [facility] [address] [place] [address] CPT-4: 46524 03/11 ([id number]) 72766 EST. PATIENT, LEVEL IV Diagnosis: Gastro-esophageal reflux disease without esophagitis[ICD10: K21.9] Diagnosis: Age-related osteoporosis without current pathological fracture[ICD10: M81.0] Diagnosis: Chronic back pain[ICD10: M54.9] Rubina wills MD, [facility] [address] [place] [address] CPT-4: 9921 4 02/17/2020 23235 EST. PATIENT, LEVEL III Diagnosis: Dysuria[ICD10: R30.0] Diagnosis: Hematuria[ICD10: R31.9] Samara Demarco MD, [facility] [address] [place] [address] CPT-4: 89320 01/14/2020 18324 EST. PATIENT, LEVEL III Diagnosis: Dysuria[ICD10: R30.0] Diagnosis: Other allergic rhinitis[ICD10: J30.89] Samara Stewart MD, [facility] [address] [place] [address] CPT-4: 9921 3 12/30/2019 96948 EST. PATIENT, LEVEL IV Diagnosis: Other acute sinusitis[ICD10: J01.80] Diagnosis: Other allergic rhinitis[ICD10: J30.89] Diagnosis: Cough[ICD10: R05] [facility] [address] [place] [address] CPT-4: 93456 12/02/2019 ([id number]) OFFICE VISIT, NEW - LEVEL 4 Diagnosis: Age-related osteoporosis without current pathological fracture[ICD10: M81.0] Diagnosis: Nasal sinus congestion[ICD10: R09.81] Diagnosis: Other chronic pain[ICD10: G89.29] Diagnosis: Chronic back pain[ICD10: M54.9] Diagnosis: Gastro-esophageal reflux disease without esophagitis[ICD10: K21.9] Rubina Demarco MD, [facility] [address] [place] [address] CPT-4: 50171 11/06/2019 Plan of Care Planned Activity Notes Codes Status Date Visit Plan: referral to Dr. Pedersen at [facility] - she has seen in him in the past - she has a new L5 compression fracture on MRI from 10/30/22 Hypertension - well controlled - continue with current medications, continue with no added salt diet. Pt has been encouraged to increase daily activity. The pt has been advised to call the office if there are any acute concerns about change in blood pressure readings at home. call to the hospital today to make sure they have the prolia - you should definitely continue with the medication. triamterine/Hctz - diuretic - take daily x 2 weeks then you can decrease to three days a week if the swelling improves significantly. We will send a referral to Dr. Maharaj for evaluation. referral to Dr. Pedersen at [facility] - she has seen in him in the past - she has a new L5 compression fracture on MRI from 10/30/22 10/31/2022 Appointment: Rubina Demarco WPtel: [address] [place], [place] [phone] (15 min) Moderate 10/31/2022 Patient Education: Patient Medication Summary Completed 10/31/2022 Patient Education: Smoking and Tobacco Addiction Completed 10/31/2022 Visit Plan: Compression fractures of L3 and L5 - patient is interested in kyphoplasty due to increased pain - will order MRI lumbar spine and then plan to refer to [facility] for evaluation- refill percocet to use prn as directed - patient verbalized understanding of plan. 10/17/2022 Appointment: Ara Boland WPtel: [facility] [place] [phone] (30 min) Complex 10/17/2022 Patient Education: Patient Medication Summary Completed 10/17/2022 Patient Education: Smoking and Tobacco Addiction Completed 10/17/2022 Visit Plan: Medicare Exam - today we dis cussed the patients past history, immunizations, preventative exams/evaluations - colonoscopy, fecal occult blood testing, routine labs for renal function, glucose, cholesterol, osteoporosis evaluations, cardiovascular testing and cancer screenings. We have also discussed mental health and the signs/symptoms of depression. The patient was advised of home safety evaluations and the need to make sure that as the aging process continues, we need to be aware of different ways to make the home a safer place to reside. The patient has also been counseled that exercise is nece ssary - and of utmost importance as we age to help decrease fall risk and to maintain independence in the home. Today we discussed the need for the patient to create paperwork for Advanced directives as well as for the patient to provide this office with a copy of her DOPA paperwork for health care surrogate. Sinusitis -rx for cefdinir Urinary incontinence - patient has urinary incontinence and needs incontinence supplies - will send with orders to patient's DME 07/24/2022 Appointment: Ara Boland WPtel: [phone] [facility] - Annual Wellness Visit 11/2022 Patient Education: Patient Medication Summary Completed 07/24/2022 Patient Education: Smoking and Tobacco Addiction Completed 07/24/2022 Visit Plan: Back pain - chronic -pt is brendan strange post sacral nerve stimulator trial. Hypertension - well controlled - continue with current medications, continue with no added salt diet. Pt has been encouraged to increase daily activity. The pt has been advised to call the office if there are any acute concerns about change in blood pressure readings at home. Ask your pharmacist about the SHINGRX vaccine - 2 part shot series - has to be completed within 6 months of the first vaccine being given. Pneumovax 20 - you can get this vaccine from the pharmacy as well. 07/03/2022 Appointment: [facility] [address] [phone] (15 min) Moderate 07/03/2022 Patient Education: Patient Medication Summary Completed 07/03/2022 Patient Education: Smoking and Tobacco Addiction Completed 07/03/2022 Patient Education: Hypertension Completed 07/03/2022 Patient Education: Patient Medication Summary Completed 04/24/2022 Appointment: Injection 03/15/2022 Patient Education: Patient Medication Summary Completed 03/15/2022 Patient Education: Smoking and Tobacco Addiction Completed 03/15/2022 Appointment: Injection 03/14/2022 Patient Education: Patient Medication Summary Completed 03/14/2022 Patient Education: Smoking and Tobacco Addiction Completed 03/14/2022 Appointment: Injection 03/13/2022 Patient Education: Patient Medication Summary Completed 03/13/2022 Patient Education: Smoking and Tobacco Addiction Completed 03/13/2022 Appointment: Injection 03/10/2022 Patient Education: Patient Medication Summary Completed 03/10/2022 Patient Education: Smoking and Tobacco Addiction Completed 03/10/2022 Visit Plan: Back pain - chronic -pt is meir patterson to be seen by specialist for sacral nerve stimulator trial. Hypertension - well controlled - continue with current medications, continue with no added salt diet. Pt has been encouraged to increase daily activity. The pt has been advised to call the office if there are any acute concerns about change in blood pressure readings at home. UTI - rx for antibiotic sent to pharmacy. 03/09/2022 Appointment: Rubina Demarco [facility]el[facility] [address] [facility] [phone] (30 min) Complex 03/09/2022 Patient Education: Patient Medication Summary Completed 03/09/2022 Patient Education: Smoking and Tobacco Addiction Completed 03/09/2022 Patient Education: Hypertension Completed 03/09/2022 Patient Education: Patient Medication Summary Completed 02/24/2022 Appointment: Nurse Visit 12/02/2021 Patient Education: Patient Medication Summary Completed 12/02/2021 Care Plan: Urine Culture Pending Visit Plan: Hypertension - well controll ed - continue with current medications, continue with no added salt diet. Pt has been encouraged to exercise daily. The pt has been advised to call the office if there are any acute concerns about change in blood pressure readings at home. Compression fractures of thoracic/lumbar spine - recommend that she continue with current treatment plan. She is not going to have kyphoplasty since her pain has improved. dysuria with Positive UA - pt given rocpehin shot in clinic and we will send out antibiotics for patient, as well as waiting on urine culture report. 10/27/2021 Patient Education: Patient Medication Summary Completed 10/27/2021 Patient Education: Hypertension Completed 10/27/2021 Visit Plan: Hypertension - well controll ed - continue with current medications, continue with no added salt diet. Pt has been encouraged to exercise daily. The pt has been advised to call the office if there are any acute concerns about change in blood pressure readings at home. Compression fracture lumbar spine L5 - calcitonin nasal spray, percocet for pain control, pt to talk to her spine surgeon about treatments - they have recommended against kyphoplasty due to need for further surgery and the fracture treated with kyphoplasty will not be amenable to the surgical fixation needed. 09/28/2021 Appointment: Rubina Demarco WPtel: [facility] [address] (15 min) Moderate 09/28/2021 Patient Education: Patient Medication Summary Completed 09/28/2021 Visit Plan: Allergies - chronic - recomm ended pt to use allergy medication as prescribed. Pt has been counseled as to the appropriate use of the medication. Pt to call if allergy symptoms are not controlled with the medication. If using nasal spray, instructions as follows: Nasal spray- use twice daily, one spray per nostril twice daily, after 30 minutes, rinse out nose with saline spray.. Use opposite hand per nostril to spray in the nasal steroid allergy spray. 09/02/2021 Appointment: Ara Boland WPtel: [facility] [place] [phone] (30 min) Complex 09/02/2021 Patient Education: Patient Medication Summary Completed 09/02/2021 Visit Plan: Hypertension - elevated in o ffice, but pt reports controlled at home. No changes to current medications. Hematuria - pt with history of recurrent UTI. She reports noticing blood in urine. Denies dysuria. Urine dipstick negative for blood. Will send for culture. Oral Candidiasis - minimal white patches to back of tongue. No erythema noted. RX for Diflucan sent to pharmacy. Osteoporosis/Hypocalcemia - Calcium decreased at 8.9 prior to Reclast infusion this year. Repeat CMP to see if oral replacement of calcium adequate. Back pain, weakness - we will send a referral to [facility] for aqua ther apy. increase the extra strength tylenol to three times daily, continue with naproxen twice daily. Restart Gatorade 8 ounces - Hair loss and itching - get some Tea tree oil and use on your scalp three times a week 06/01/2021 Appointment: Rubina Demarco WPtel: [address] [phone] (15 min) Moderate 06/01/2021 Patient Education: Patient Medication Summary Completed 06/01/2021 Visit Plan: Hypertension - elevated in o ffice, but pt reports controlled at home. No changes to current medications. Hematuria - pt with history of recurrent UTI. She reports noticing blood in urine. Denies dysuria. Urine dipstick negative for blood. Will send for culture. Oral Candidiasis - minimal white patches to back of tongue. No erythema noted. RX for Diflucan sent to pharmacy. Osteoporosis/Hypocalcemia - Calcium decreased at 8.9 prior to Reclast infusion this year. Repeat CMP to see if oral replacement of calcium adequate. 05/18/2021 Appointment: Whitney Shelton WPtel: [phone] [place] (30 min) Complex 05/18/2021 Patient Education: Patient Medication Summary Completed 05/18/2021 Patient Education: cephalexin- [employer] Coupon [id number] Completed 05/18/2021 Care Plan: Urine Culture Pending 06/2020 Patient Education: Patient Medication Summary Completed 04/14/2021 Appointment: Injection 04/08/2021 Patient Education: Patient Medication Summary Completed 04/08/2021 Patient Education: Patient Medication Summary Completed 03/11/2021 Appointment: Nurse Visit 03/07/2021 Visit Plan: Return on Sunday. 03/04/2021 Patient Education: Patient Medication Summary Completed 03/04/2021 Visit Plan: Skin tears - left lower leg x 1 and right lower leg x 4 - keep clean/dry - return tomorrow for dressing change - patient and sister verbalized understanding of plan. 03/03/2021 Appointment: (10 min) Simple 03/03/2021 Patient Education: Patient Medication Summary Completed 03/03/2021 Visit Plan: Back pain - chronic - referr al to physical therapy at [facility] - has L1 re-fracture of previous compression fracture- 02-18-21 Hypertension - well controlled - continue with current medications, continue with no added salt diet. Pt has been encouraged to exercise daily. The pt has been advised to call the office if there are any acute concerns about change in blood pressure readings at home. addendum pt is unable to leave home, will need to have home health for therapy and bath aide as well as nursing to look in on her...her back pain is preventing her from being able to ambulate safely to get out of the house for outpatient services. 02/01/2021 Appointment: Rubina Demarco WPtel: [phone] (15 min) Moderate 02/01/2021 Patient Education: Patient Medication Summary Completed 02/01/2021 Patient Education: Back Pain Completed 02/01/2021 Appointment: Rubina Demarco WPtel: [phone] 30 min appointments only in this slot 01/19/2021 Patient Education: Patient Medication Summary Completed 12/22/2020 Care Plan: Urine Culture Pending 12/2020 Visit Plan: Low back pain- the patient w as instructed in appropriate posture, need for weight loss to alleviate abdominal obesity that is worsening the patient's back pain.. The pt is to use prn antiinflammatories to manage acute pain. The patient is to call the office if the pain is worsening or does not improve. Sacroiliitis - back exercises discussed with the patient, pt to continue with anti-inflammatories. Pt is to call if the symptoms do not improve or if they worsen. Joint Injection - Pt was given post - injection instructions. The pt has been advised to use anti-inflammatories post injection today, ice to the injected site, call if redness, warmth, or increased pain occurs at the site of injection. 11/17/2020 Appointment: Samara Cormier WPtel: [phone] [facility] (30 min) Complex 11/17/2020 Patient Education: Patient Medication Summary Completed 11/17/2020 Visit Plan: Sacroiliitis - kenalog injec tion today - back exercises discussed with the patient, pt to continue with anti-inflammatories. Pt is to call if the symptoms do not improve or if they worsen. Tobacco use- patient is due for low dose CT scan 10/29/2020 Appointment: Ara Boland WPtel: [phone] [phone] (15 min) Moderate 10/29/2020 Patient Education: Patient Medication Summary Completed 10/29/2020 Patient Education: Back Pain Completed 10/29/2020 Patient Education: Smoking and Tobacco Addiction Completed 10/29/2020 Visit Plan: Hypertension - well controll ed - continue with current medications, continue with no added salt diet. Pt has been encouraged to exercise daily. The pt has been advised to call the office if there are any acute concerns about change in blood pressure readings at home. Fibromyalgia - pt has been counseled about healthy diet, exercise, and adequate rest in the evening/nighttime for optimal health and improvement of the fibromyalgia symptoms. Pt is to use medication for pain control and symptom management sparingly. Generalized OA - supportive care only. 09/22/2020 Appointment: Rubina Demarco WPtel: [phone] [phone] [place] (15 min) Moderate 09/22/2020 Patient Education: Patient Medication Summary Completed 09/22/2020 Visit Plan: Hypertension - uncontrolled - the patient's medications have been modified as documented in the visit note. The patient has been counseled to cut back on salt in diet for a no added salt diet, low fat diet, start an exercise program with low weight bearing exercises and higher aerobic activity for heart health. The patient is to check blood pressure readings as an outpatient and either fax, call, or email the readings to the office next week for practitioner to review. The pt is to call for acute concerns. 08/20/2020 Appointment: Ara Boland WPtel: [phone] (15 min) Moderate 08/20/2020 Patient Education: Patient Medication Summary Completed 08/20/2020 Patient Education: Hypertension Completed 08/20/2020 Appointment: Rubina Demarco WPtel: [phone] [phone] [place] (30 min) Complex 08/19/2020 Visit Plan: Hypertension - uncontrolled - the patient's medications have been modified as documented in the visit note. The patient has been counseled to cut back on salt in diet for a no added salt diet, low fat diet, start an exercise program with low weight bearing exercises and higher aerobic activity for heart health. The patient is to check blood pressure readings as an outpatient and either fax, call, or email the readings to the office next week for practitioner to review. The pt is to call for acute concerns. increase metoprolol to 1.5 tabs at bedtime. 07/22/2020 Appointment: Rubina Demarco WPtel: [phone] (30 min) Complex 07/22/2020 Patient Education: Patient Medication Summary Completed 07/22/2020 Visit Plan: Dysuria- history of UTI- rx for cipro sent to start over the weekend if needed -culture pending BPPV - continue meclizine as needed 07/16/2020 Appointment: Ara Boland WPtel: [phone] [place] (30 min) Complex 07/16/2020 Patient Education: Patient Medication Summary Completed 07/16/2020 Patient Education: Patient Medication Summary Completed 07/14/2020 Care Plan: Urine Culture if indicated Pending Patient Education: Patient Medication Summary Completed 06/24/2020 Visit Plan: Hypertension - uncontrolled - the patient's medications have been modified as documented in the visit note. The patient has been counseled to cut back on salt in diet for a no added salt diet, low fat diet, start an exercise program with low weight bearing exercises and higher aerobic activity for heart health. The patient is to check blood pressure readings as an outpatient and either fax, call, or email the readings to the office next week for practitioner to review. The pt is to call for acute concerns. Start Metoprolol 25mg daily. Left Breast pain - Mammogram with ultrasound left breast. Decrease estradiol from 2mg daily to 1mg daily, monitor symptoms. OA, fibromyalgia - referral to rheumatology for chronic arthritis - [facility] because she has to stay in [place] 06/22/2020 Appointment: Rubina Demarco WPtel: [phone] (30 min) Complex 06/22/2020 Patient Education: Patient Medication Summary Completed 06/22/2020 Visit Plan: Sinusitis - Pt has acute inf ection - pain in face, maxillary region, Pt informed to use decongestant, RX given to patient, sinus rinses also recommended. Call if symptoms do not show improvement. 05/24/2020 Appointment: Ara Boland WPtel: [facility] [address] TeleHealth 05/24/2020 Patient Education: Patient Medication Summary Completed 05/24/2020 Appointment: Injection 04/07/2020 Patient Education: Patient Medication Summary Completed 04/07/2020 Visit Plan: BPPV - Benign Paroxysmal Pos itional Vertigo - discussed diagnosis with the patient, offered the pt the appropriate additional information in hand- out. Pt instructed in home exercises to help alleviate and prevent future recurrent episodes of vertigo. Pt informed that if symptoms worsen, call the office for further instructions/medication interventions. Weakness, imbalance, frequent falls - will order PT - pt given orders to schedule PT when she is ready - will refer to neurology for work up - pt is to notify clinic with any changes, questions, or concerns. 04/05/2020 Appointment: Samara Cormier WPtel: [address] (30 min) Complex 04/05/2020 Patient Education: Patient Medication Summary Completed 04/05/2020 Visit Plan: skin tear - improving - The patient was instructed in appropriate wound care. The patient was instructed to use the antibiotic ointment as per RX. The patient is to call for any change in symptoms, increase in size of the lesion, increase in pain, worsening redness, warmth, discharge. Allergies - chronic - recommended pt to use allergy medication as prescribed. Pt has been counseled as to the appropriate use of the medication. Pt to call if allergy symptoms are not controlled with the medication. If using nasal spray, instructions as follows: Nasal spray- use twice daily, one spray per nostril twi ce daily, after 30 minutes, rinse out nose with saline spray.. Use opposite hand per nostril to spray in the nasal steroid allergy spray. left rib pain - will send RX - pt is to notify clinic if symptoms do not improve, if they worsen, or with any changes, questions, or concerns. 03/22/2020 Appointment: Samara Cormier WPtel: [address] [place], [place] [phone] (15 min) Moderate 03/22/2020 Patient Education: Patient Medication Summary Completed 03/22/2020 Visit Plan: skin tear - The patient was instructed in appropriate wound care. The patient was instructed to use the antibiotic ointment as per RX. The patient is to call for any change in symptoms, increase in size of the lesion, increase in pain, worsening redness, warmth, discharge. 03/16/2020 Appointment: Samara Cormier WPtel: [facility] (15 min) Moderate 03/16/2020 Patient Education: Patient Medication Summary Completed 03/16/2020 Visit Plan: skin tear - The patient was instructed in appropriate wound care. The patient was instructed to use the antibiotic ointment as per RX. The patient is to call for any change in symptoms, increase in size of the lesion, increase in pain, worsening redness, warmth, discharge. 03/15/2020 Appointment: Samara Cormier WPtel: [phone] (15 min) Moderate 03/15/2020 Patient Education: Patient Medication Summary Completed 03/15/2020 Visit Plan: Sinusitis - Pt has acute inf ection - pain in face, maxillary region, Pt informed to use decongestant, RX given to patient, sinus rinses also recommended. Call if symptoms do not show improvement. Allergies - chronic - recommended pt to use allergy medication as prescribed. Pt has been counseled as to the appropriate use of the medication. Pt to call if allergy symptoms are not controlled with the medication. If using nasal spray, instructions as follows: Nasal spray- use twice daily, one spray per nostril twice daily, after 30 minutes, rinse out nose with saline spray.. Use opposite hand per nostril to spray in the nasal steroid allergy spray. Right knee pain - the patient was instructed in appropriate posture. The pt is to use prn antiinflammatories to manage acute pain. The patient is to call the office if the pain is worsening or does not improve. 03/11/2020 Appointment: [facility] Cormier [facility]Ptel: [phone] [place] (30 min) Complex 03/11/2020 Patient Education: Patient Medication Summary Completed 03/11/2020 Visit Plan: Pt has negative cologuard ab out 3 years ago - will send an order for repeat cologuard testing Esophageal Reflux - the patient has been counseled against excessive intake of caffeine, spicy foods, peppermint, and cinnamon - all of which can exacerbate esophageal reflux. The patient is to take medications as prescribed and call the office if the symptoms are not improving. Chronic back pain - advised pt to keep appts with PMR physicians. Osteoporosis - continue Reclast 02/17/2020 Appointment: Rubina Demarco WPtel: [phone] [phone] [place] (15 min) Moderate 02/17/2020 Patient Education: Patient Medication Summary Completed 02/17/2020 Visit Plan: Hematuria- unable to do UA - will culture 02/09/2020 Appointment: Lab Draw 02/09/2020 Patient Education: Patient Medication Summary Completed 02/09/2020 Care Plan: Urine Culture Pending Appointment: Samara Cormier WPtel: [phone] [phone] [place] (30 min) Complex 01/14/2020 Patient Education: Patient Medication Summary Completed 01/14/2020 Care Plan: Urine Culture Pending Appointment: Samara Cormier WPtel: [phone] [phone] (10 min) Simple 12/30/2019 Patient Education: Patient Medication Summary Completed 12/30/2019 Care Plan: Urine Culture Pending Visit Plan: Sinusitis/URI - will send fo r COVID-19 testing - Pt has acute infection - pain in face, maxillary region, Pt informed to use decongestant, RX given to patient, sinus rinses also recommended. Call if symptoms do not show improvement. Allergies - chronic - recommended pt to use allergy medication as prescribed. Pt has been counseled as to the appropriate use of the medication. Pt to call if allergy symptoms are not controlled with the medication. If using nasal spray, instructions as follows: Nasal spray- use twice daily, one spray per nostril twice daily, after 30 minutes, rinse out nose with saline spray.. Use opposite hand per nostril to spray in the nasal steroid allergy spray. 12/02/2019 Appointment: Samara Cormier WPtel: [phone] [place] (30 min) Complex 12/02/2019 Patient Education: Patient Medication Summary Completed 12/02/2019 Patient Education: Patient Medication Summary Completed 11/20/2019 Care Plan: Urine Culture Pending 09/2019 Patient Education: Patient Medication Summary Completed 11/13/2019 Visit Plan: She has severe osteoporosis - she was on Fosamax for a few months and her stomach was very upset - she was switched to Boniva - and her stomach is worse now than on the fosamax. I have instructed her to hold the bisphosphonate until she is seen by the Air Traffic Control Supervisor at [facility]. Esophageal Reflux - the patient has been counseled against excessive intake of caffeine, spicy foods, peppermint, and cinnamon - all of which can exacerbate esophageal reflux. The patient is to take medications as prescribed and call the office if the symptoms are not improving. Sinus congestion - continue with nasal spray. Chronic back pain - advised pt to keep appts with PMR physicians. 11/06/2019 Patient Education: Patient Medication Summary Completed 11/06/2019 Referral: [facility] Referral Appointment Requested Instructions Comment Date call to the hospital today to make sure they have the prolia - you should definitely continue with the medication. triamterine/Hctz - diuretic - take daily x 2 weeks then you can decrease to three days a week if the swelling improves significantly. We will send a referral to Dr. Maharaj for evaluation. referral to Dr. Pedersen at [facility] - she has seen in him in the past - she has a new L5 compression fracture on MRI from 10/30/[address] Pedersen at [facility] - she has seen in him in the past - she has a new L5 compression fracture on MRI from 10/30/22 Hypertension - well controlled - continue with current medications, continue with no added salt diet. Pt has been encouraged to increase daily activity. The pt has been advised to call the office if there are any acute concerns about change in blood pressure readings at home. call to the hospital today to make sure they have the prolia - you should definitely continue with the medication. triamterine/Hctz - diuretic - take daily x 2 weeks then you can decrease to three days a week if the swelling improves significantly. We will send a referral to Dr. Maharaj for evaluation. referral to Dr. Pedersen at [facility] - she has seen in him in the past - she has a new L5 compression fracture on MRI from 10/30/22 10/31/2022 mri lumbar spine then refer to orth[facility] . Compression fractures of L3 and L5 - p atient is interested in kyphoplasty due to increased pain - will order MRI lumbar spine and then plan to refer to [facility] for evaluation- refill percocet to use prn as directed -patient verbalized understanding of plan. 10/17/2022 cologuard - i will send order shingles vaccine prevnar 20 vaccine . Medicare Exam - today we discussed the patients past history, immunizations, preventative exams/evaluations - colonoscopy, fecal occult blood testing, routine labs for renal function, glucose, cholesterol, osteoporosis evaluations, cardiovascular testing and cancer screenings. We have also discussed mental health and the signs/symptoms of depression. The patient was advised of home safety evaluations and the need to make sure that as the aging process continues, we need to be aware of different ways to make the home a safer place to reside. The patient has also been counseled that exercise is necessary - and of utmost importance as we age to help decrease fall risk and to maintain independence in the home. Today we discussed the need for the patient to create paperwork for Advanced directives as well as for the patient to provide this office with a copy of her DOP[employer] paperwork for health care surrogate. Sinusitis -rx for cefdinir Urinary incontinence - patient has urinary incontinence and needs incontinence supplies - will send with orders to patient's DME 07/24/2022 Ask your pharmacist about the SHINGRX va ccine - 2 part shot series - has to be completed within 6 months of the first vaccine being given. Pneumovax 20 - you can get this vaccine from the pharmacy as well. . Back pain - chronic -pt is status post sacral nerve stimulator trial. Hypertension - well controlled - continue with current medications, continue with no added salt diet. Pt has been encouraged to increase daily activity. The pt has been advised to call the office if there are any acute concerns about change in blood pressure readings at home. Ask your pharmacist about the SHINGRX vaccine - 2 part shot series - has to be completed within 6 months of the first vaccine being given. Pneumovax 20 - you can get this vaccine from the pharmacy as well. 07/03/2022 . Back pain - chronic -pt is going to be seen by specialist for sacral nerve stimulator trial. Hypertension - well controlled - continue with current medications, continue with no added salt diet. Pt has been encouraged to increase daily activity. The pt has been advised to call the office if there are any acute concerns about change in blood pressure readings at home. UTI - rx for antibiotic sent to pharmacy. 03/09/2022 . Hypertension - well controlled - mark nue with current medications, continue with no added salt diet. Pt has been encouraged to exercise daily. The pt has been advised to call the office if there are any acute concerns about change in blood pressure readings at home. Compression fractures of thoracic/lumbar spine - recommend that she continue with current treatment plan. She is not going to have kyphoplasty since her pain has improved. dysuria with Positive UA - pt given rocpehin shot in clinic and we will send out antibiotics for patient, as well as waiting on urine culture report. 10/27/2021 . Hypertension - well controlled - mark nue with current medications, continue with no added salt diet. Pt has been encouraged to exercise daily. The pt has been advised to call the office if there are any acute concerns about change in blood pressure readings at home. Compression fracture lumbar spine L5 - calcitonin nasal spray, percocet for pain control, pt to talk to her spine surgeon about treatments - they have recommended against kyphoplasty due to need for further surgery and the fracture treated with kyphoplasty will not be amenable to the surgical fixation needed. 09/28/2021 INCREASE FLONASE TO TWICE DAILY . Allergies - chronic - recommended pt t o use allergy medication as prescribed. Pt has been counseled as to the appropriate use of the medication. Pt to call if allergy symptoms are not controlled with the medication. If using nasal spray, instructions as follows: Nasal spray- use twice daily, one spray per nostril twice daily, after 30 minutes, rinse out nose with saline spray.. Use opposite hand per nostril to spray in the nasal steroid allergy spray. 09/02/2021 restart gatorade 8 ounces daily increase the extra strength tylenol to three times daily, continue with naproxen twice daily. get some Tea tree oil and use on your scalp three times a week we will send a referral to [facility] for aqua therapy . Hypertension - elevated in office, but pt reports controlled at home. No changes to current medications. Hematuria - pt with history of recurrent UTI. She reports noticing blood in urine. Denies dysuria. Urine dipstick negative for blood. Will send for culture. Oral Candidiasis - minimal white patches to back of tongue. No erythema noted. RX for Diflucan sent to pharmacy. Osteoporosis/Hypocalcemia - Calcium decreased at 8.9 prior to Reclast infusion this year. Repeat CMP to see if oral replacement of calcium adequate. Back pain, weakness - we will send a referral to [facility] for aqua therapy. increase the extra strength tylenol to three times daily, continue with naproxen twice daily. Restart Gatorade 8 ounces - Hair loss and itching - get some Tea tree oil and use on your scalp three times a week 06/01/2021 KEEP ROUTINE APPT WITH DR LB GARZA FOR THRUSH URINE CULTURE ORDERED, RX FOR CEPHALEXIN SENT TO PHARMACY MAY START IF SYMPTOMS WORSEN, OTHERWISE WOULD WAIT UNTIL CULTURE COMES BACK CHECK CALCIUM TODAY . Hypertension - elevated in office, but pt reports controlled at home. No changes to current medications. Hematuria - pt with history of recurrent UTI. She reports noticing blood in urine. Denies dysuria. Urine dipstick negative for blood. Will send for culture. Oral Candidiasis - minimal white patches to back of tongue. No erythema noted. RX for Diflucan sent to pharmacy. Osteoporosis/Hypocalcemia - Calcium decreased at 8.9 prior to Reclast infusion this year. Repeat CMP to see if oral replacement of calcium adequate. 05/18/2021 . Return on Sunday. 03/04/2021 . Skin tears - left lower leg x 1 and ri ght lower leg x 4 - keep clean/dry - return tomorrow for dressing change - patient and sister verbalized understanding of plan. 03/03/2021 . Back pain - chronic - referral to [facility] therapy [facility] - has L1 re- fracture of previous compression fracture- 02-18-21 Hypertension - well controlled - continue with current medications, continue with no added salt diet. Pt has been encouraged to exercise daily. The pt has been advised to call the office if there are any acute concerns about change in blood pressure readings at home. addendum pt is unable to leave home, will need to have home health for therapy and bath aide as well as nursing to look in on her...her back pain is preventing her from being able to ambulate safely to get out of the house for outpatient services. 02/01/2021 . Low back pain- the patient was instruc connie in appropriate posture, need for weight loss to alleviate abdominal obesity that is worsening the patient's back pain.. The pt is to use prn antiinflammatories to manage acute pain. The patient is to call the office if the pain is worsening or does not improve. Sacroiliitis - back exercises discussed with the patient, pt to continue with anti-inflammatories. Pt is to call if the symptoms do not improve or if they worsen. Joint Injection - Pt was given post - injection instructions. The pt has been advised to use anti-inflammatories post injection today, ice to the injected site, call if redness, warmth, or increased pain occurs at the site of injection. 11/17/2020 KENALOG INJECTION TODAY REFER FOR PHYSICAL THERAPY IF PAIN NOT IMPROVING LOW DOSE CT SCAN . Sacroiliitis - kenalog injection today - back exercises discussed with the patient, pt to continue with anti-inflammatories. Pt is to call if the symptoms do not improve or if they worsen. Tobacco use- patient is due for low dose CT scan 10/29/2020 stop the estradiol start on premarin 0.625mg daily x 10 days then start on the 0.3mg dose daily x 5 days then stop . Hypertension - well controlled - mark nue with current medications, continue with no added salt diet. Pt has been encouraged to exercise daily. The pt has been advised to call the office if there are any acute concerns about change in blood pressure readings at home. Fibromyalgia - pt has been counseled about healthy diet, exercise, and adequate rest in the evening/nighttime for optimal health and improvement of the fibromyalgia symptoms. Pt is to use medication for pain control and symptom management sparingly. Generalized OA - supportive care only. 09/22/2020 INCREASE METOPROLOL TO 50MG DAILY . Hypertension - uncontrolled - the gonzález ent's medications have been modified as documented in the visit note. The patient has been counseled to cut back on salt in diet for a no added salt diet, low fat diet, start an exercise program with low weight bearing exercises and higher aerobic activity for heart health. The patient is to check blood pressure readings as an outpatient and either fax, call, or email the readings to the office next week for practitioner to review. The pt is to call for acute concerns. 08/20/2020 increase metoprolol to 1.5 tabs at bedti me. . Hypertension - uncontrolled - the gonzález ent's medications have been modified as documented in the visit note. The patient has been counseled to cut back on salt in diet for a no added salt diet, low fat diet, start an exercise program with low weight bearing exercises and higher aerobic activity for heart health. The patient is to check blood pressure readings as an outpatient and either fax, call, or email the readings to the office next week for practitioner to review. The pt is to call for acute concerns. increase metoprolol to 1.5 tabs at bedtime. 07/22/2020 CIPRO TO START IF NEEDED URINE CULTURE WILL BE BACK SUNDAY CONTINUE MECLIZINE NEEDED . Dysuria- history of UTI- rx for cipro sent to start over the weekend if needed -culture pending BPPV - continue meclizine as needed 07/16/2020 . Hypertension - uncontrolled - the gonzález ent's medications have been modified as documented in the visit note. The patient has been counseled to cut back on salt in diet for a no added salt diet, low fat diet, start an exercise program with low weight bearing exercises and higher aerobic activity for heart health. The patient is to check blood pressure readings as an outpatient and either fax, call, or email the readings to the office next week for practitioner to review. The pt is to call for acute concerns. Start Metoprolol 25mg daily. Left Breast pain - Mammogram with ultrasound left breast. Decrease estradiol from 2mg daily to 1mg daily, monitor symptoms. OA, fibromyalgia - referral to rheumatology for chronic arthritis - [facility] because she has to stay in [place] 06/22/2020 . Sinusitis - Pt has acute infection - p ain in face, maxillary region, Pt informed to use decongestant, RX given to patient, sinus rinses also recommended. Call if symptoms do not show improvement. 05/24/2020 . BPPV - Benign Paroxysmal Positional Ve rtigo - discussed diagnosis with the patient, offered the pt the appropriate additional information in hand-out. Pt instructed in home exercises to help alleviate and prevent future recurrent episodes of vertigo. Pt informed that if symptoms worsen, call the office for further instructions/medication interventions. Weakness, imbalance, frequent falls - will order PT - pt given orders to schedule PT when she is ready - will refer to neurology for work up - pt is to notify clinic with any changes, questions, or concerns. 04/05/2020 . skin tear - improving - The patient wa s instructed in appropriate wound care. The patient was instructed to use the antibiotic ointment as per RX. The patient is to call for any change in symptoms, increase in size of the lesion, increase in pain, worsening redness, warmth, discharge. Allergies - chronic - recommended pt to use allergy medication as prescribed. Pt has been counseled as to the appropriate use of the medication. Pt to call if allergy symptoms are not controlled with the medication. If using nasal spray, instructions as follows: Nasal spray- use twice daily, one spray per nostril twice daily, after 30 minutes, rinse out nose with saline spray.. Use opposite hand per nostril to spray in the nasal steroid allergy spray. left rib pain - will send RX - pt is to notify clinic if symptoms do not improve, if they worsen, or with any changes, questions, or concerns. 03/22/2020 . skin tear - The patient was instructed in appropriate wound care. The patient was instructed to use the antibiotic ointment as per RX. The patient is to call for any change in symptoms, increase in size of the lesion, increase in pain, worsening redness, warmth, discharge. 03/16/2020 . skin tear - The patient was instructed in appropriate wound care. The patient was instructed to use the antibiotic ointment as per RX. The patient is to call for any change in symptoms, increase in size of the lesion, increase in pain, worsening redness, warmth, discharge. 03/15/2020 will start on z-pack - finish cefdinir a s ordered as well take a probiotic over the counter while on the antibiotics will give steroid shot today will send naproxen - take twice a day with food for your knee use a knee sleeve or wrap get knee x-ray will write medication letter let me know if things are not getting better. Sinusitis - Pt has acute infection - pain in face, maxillary region, Pt informed to use decongestant, RX given to patient, sinus rinses also recommended. Call if symptoms do not show improvement. Allergies - chronic - recommended pt to use allergy medication as prescribed. Pt has been counseled as to the appropriate use of the medication. Pt to call if allergy symptoms are not controlled with the medication. If using nasal spray, instructions as follows: Nasal spray- use twice daily, one spray per nostril twice daily, after 30 minutes, rinse out nose with saline spray.. Use opposite hand per nostril to spray in the nasal steroid allergy spray. Right knee pain - the patient was instructed in appropriate posture. The pt is to use prn antiinflammatories to manage acute pain. The patient is to call the office if the pain is worsening or does not improve. 03/11/2020 . Pt has negative cologuard about 3 year s ago - will send an order for repeat cologuard testing Esophageal Reflux - the patient has been counseled against excessive intake of caffeine, spicy foods, peppermint, and cinnamon - all of which can exacerbate esophageal reflux. The patient is to take medications as prescribed and call the office if the symptoms are not improving. Chronic back pain - advised pt to keep appts with [facility] physicians. Osteoporosis - continue Reclast 02/17/2020 . Hematuria- unable to do UA - will culture 0 . Sinusitis/URI - will send for COVID-19 testing - Pt has acute infection - pain in face, maxillary region, Pt informed to use decongestant, RX given to patient, sinus rinses also recommended. Call if symptoms do not show improvement. Allergies - chronic - recommended pt to use allergy medication as prescribed. Pt has been counseled as to the appropriate use of the medication. Pt to call if allergy symptoms are not controlled with the medication. If using nasal spray, instructions as follows: Nasal spray- use twice daily, one spray per nostril twice daily, after 30 minutes, rinse out nose with saline spray.. Use opposite hand per nostril to spray in the nasal steroid allergy spray. 12/02/2019 . She has severe osteoporosis - she was on Fosamax for a few months and her stomach was very upset - she was switched to Boniva - and her stomach is worse now than on the fosamax. I have instructed her to hold the bisphosphonate until she is seen by the [facility] Traffic Control Supervisor at [facility]. Esophageal Reflux - the patient has been counseled against excessive intake of caffeine, spicy foods, peppermint, and cinnamon - all of which can exacerbate esophageal reflux. The patient is to take medications as prescribed and call the office if the symptoms are not improving. Sinus congestion - continue with nasal spray. Chronic back pain - advised pt to keep appts with PMR physicians. 11/06/2019 Medical Equipment No Medical Equipment data Health Concerns Section Health Concerns data not found Goals Section Goals data not found Interventions Section Interventions data not found Health Status Evaluations/Outcomes Section Health Status Evaluations/Outcomes data not found Advance Directives No Advance Directive data
--- OUTSIDE RECORDS SUMMARY | 2022-12-05 15:47 | XMS REPORT | Clinical Summary ---
Author Author [facility] Organization [facility] Address Unknown Phone Unavailable Care Team Providers Care Farm Specialist Name Role Phone Christina Black RN [...] Dougherty MD Unavailable Victoriano Loja MD Unavailable [phone] Rubina Demarco MD PCP Source Comments Some departments are not documenting in the electronic medical record. If you d o not see the information that you expected, contact Release of Information in [facility] Information Management department at [phone] for further assistan ce in locating additional records.[facility] Allergies Comments Active Allergy Reactions Criticality Noted Date Sulfamethoxazole-Trimetho HIVES Medium 03/19 prim Hydromorphone RASH Medium 07/16/2019 topical Iodine HIVES Medium 06/18/1974 Hydrocodone-Acetaminophen ITCHING Low 06/0 07/2019 Morphine HIVES Medium 06/18/1974 Medications End Date Status Medication Sig Dispensed Refills Start Date Active levomilnacipran (FETZIMA) Take 120 mg 0 120 mg Cs24 by mouth daily. Active cholecalciferol (VITAMIN Take 5,000 0 D-3) 5000 unit tablet Units by mouth daily. Active magnesium oxide 400 mg Take 1 Cap by 30 Cap 1 0 cap mouth daily. 5 Additional Information Patient taking differently: 500 mg Oral SEE ADMIN INSTRUCTIONS, Takes one every morning. May also take as needed for headache., Reported on 03/19/2015 Active hydrOXYzine (ATARAX) 10 Take 10 mg [...] billion cell cpSP breakfast. Active pantoprazole DR Take 40 mg by 0 (PROTONIX) 40 mg tablet mouth daily. 7 Active divalproex (DEPAKOTE ER) 1,000 mg at 0 06/29 500 mg ER tablet bedtime 7 daily. Active fluticasone (FLOVENT HFA) Inhale 2 0 110 mcg/actuation inhaler puffs by mouth into the lungs twice daily. Active baclofen (LIORESAL) 20 mg TAKE 1 TABLET 3 01/16 tablet BY MOUTH 8 TWICE DAILY WITH FOOD OR MILK Active MULTIVITAMIN PO Take by 0 mouth. Active buPROPion XL (WELLBUTRIN Take 300 mg 0 08/29 XL) 300 mg tablet by mouth 9 every morning. Active Cyanocobalamin 1,[address] 1,000 0 subl mcg under tongue daily. Active vit A/vit C/vit Take by 0 E/zinc/copper (OCUVITE mouth daily. PRESERVISION PO) Active levocetirizine 5 mg tab Take 1 tablet 0 by mouth at bedtime daily. Active Cranberry 400 mg cap Take 1 0 capsule by mouth daily. Active ascorbic acid (VITAMIN C) Take 500 mg 0 500 mg tablet by mouth daily. Active montelukast (SINGULAIR) Take 10 mg by 0 10 mg tablet mouth at bedtime daily. Active diazePAM (VALIUM) 5 mg Take 1 tab PO 2 tablet 0 1 tablet 1 hour prior 0 to MRI, may repeat if needed Active metoprolol XL (TOPROL XL) 0 25 mg extended release 1 tablet Active naproxen (NAPROSYN) 500 every 12 0 mg tablet hours. 8 Active traMADoL (ULTRAM) 50 mg Take one 30 tablet 1 tablet tablet by 1 mouth every 8 hours as needed for Pain. Active lidocaine/prilocaine apply small 30 g 3 07/23 (EMLA) 2.5/2.5 % topical amount to 1 cream affected area Active diclofenac (VOLTAREN) 1 % Apply two g 1 Tube 5 topical gel topically to 1 affected area four times daily. Active gabapentin (NEURONTIN) Take 300 mg 0 01 300 mg capsule by mouth 3 twice daily. Pt taking a total of 400mg qhs Active Problems Problem Noted Date Diagnosed Date Spinal stenosis of lumbosacral region 02/06/2018 Tendinopathy of right gluteus medius 02/06/2018 Greater trochanteric bursitis of right hip 8 Spondylosis of lumbosacral region without myelopathy or 02/06/2018 radiculopathy Chronic low back pain 09/26/2017 Neck pain 10/04/2016 History of fusion of cervical spine 10/04/2016 Myofascial pain 10/04/2016 Paresthesia 10/22/2014 Status migrainosus 10/22/2014 Cervical stenosis of spine 10/22/2014 Headache 09/24/2014 Positional vertigo 09/24/2014 Lytic bone lesions on xray 08/31/2014 Osteoporosis Closed compression fracture of body of L1 vertebra Surgical History Surgery Date Site/Laterality Comments HX APPENDECTOMY HX HYSTERECTOMY HX HEART CATHETERIZATION COLONOSCOPY GALLBLADDER SURGERY N/A bladder surg TONSILLECTOMY 06/18/1964 - 06/17/1965 CATARACT REMOVAL 06/18/2009 - 06/17/2010 SALIVARY GLAND SURGERY 06/18/1971 - salvilary duct stones 06/17/1972 OVARIAN CYST SURGERY 06/18/1975 - 06/17/1976 BLADDER SURGERY BARTHOLIN GLAND CYST EXCISION HX BACK SURGERY 12/16/2020 - 01/15/2021 Medical History Medical History Date Comments 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 Bleeding disorder (HCC) Stomach disorder Arthritis Bone disease Convulsion (HCC) Fibromyalgia Other dysphagia Generalized headaches Heart palpitations Altered mental status Memory loss Neuropathy Disorganized thinking Abnormal involuntary movement Ulcer Osteoporosis Closed compression fracture of body of L1 vertebra (HCC) Family History Medical History Relation Name Comments [...] Use Types Packs/Day Years Used Quit: 05/23/2019 Smoking Tobacco: Former Cigarettes 1 43 Smokeless Tobacco: Never Tobacco Cessation: Counseling Given: No Comments Alcohol Use Standard Drinks/Week No 0 (1 standard drink = 0.6 o z pure alcohol) Date Recorded Alcohol Use Answer Alcohol Use No Male: 9+ ounces (15+ Standard Drinks) per week Not o n file Threshold Female: 4.8+ ounces (8+ Standard Drinks) per week 0 Threshold Date Recorded Sex and Gender Information Value 09/24/2019 10:51 AM CDT Sex Assigned at Female 09/24/2019 10:51 AM CDT Gender Identity Female Sexual Orientation Not on file Obstetrics History Last Filed Vital Signs Reading Time Taken Comments Vital Sign 143/82 11/18/2019 3:36 PM CDT Blood Pressure 95 11/18/2019 2:37 PM CDT Pulse 37.1 C (98.7 F) 11/18/2019 2:37 PM CDT Temperature 16 11/18/2019 2:37 PM CDT Respiratory Rate 99% 11/18/2019 3:36 PM CDT Oxygen Saturation - - Inhaled Oxygen Concentration 71.2 kg (157 lb) 06/23/2020 10:30 AM DRY COLOR MIXER Weight 160 cm (5' 3") 06/23/2020 10:30 AM DRY COLOR MIXER Height 27.81 06/23/2020 10:30 AM DRY COLOR MIXER Body Mass Index Plan of Treatment Health Maintenance Due Date Last Done Comments MEDICARE ANNUAL WELLNESS 1955 VISIT HIV SCREENING 12/28/1971 HEPATITIS C SCREENING 1974 PHYSICAL (COMPREHENSIVE) 1974 EXAM BREAST CANCER SCREENING 1996 COLORECTAL CANCER 2001 SCREENING SHINGLES RECOMBINANT 07/11/2017 05/16/2017 VACCINE (2 of 3) COVID-19 VACCINE (2 - 11/06/2020 09/11/2020 Booster for Femi series) OSTEOPOROSIS 2021 SCREENING/MONITORING PNEUMOCOCCAL VACCINE 65+ 2021 03/30/2016 YRS (2 - PPSV23 if available, else PCV20) ADVANCED CARE PLANNING 06/18/2022 DISCUSSION AND DOCUMENTATION DEPRESSION SCREENING 06/18/2022 03/19/2015 INFLUENZA VACCINE (Season 03/18/2023 Ended) DTAP/TDAP VACCINES (3 - 04/24/2027 04/24/2017, Td or Tdap) 07/26/2016 Results Not on filefrom Last 3 Months Insurance Type Payer Benefit Subscriber ID Effective Phone Address Plan / Dates Group Medicare MEDICARE MEDICARE [id number] 2017-P [phone] [address] [place] [address] Medicaid UHC MEDICAID [place] UHC [id number] 2018-P [address] [place] [address] Advance Directives Date Inactivated Comments Code Status Date Activated 01/15/2015 6:26 PM Full Code 01/14/2015 1:47 PM Comments Question Answer Provider has No, discussion not necessar y based on Dx discussed Code Status w/Patient or Family? Date Inactivated Comments Code Status Date Activated 10/22/2014 4:32 PM Full Code 10/22/2014 4:24 AM Comments Question Answer Provider has No, more discussion needed discussed Code Status w/Patient or Family? Care Teams Start Date End Date Farm Specialist Relationship Specialty 11/18/19 Rubina Demarco MD PCP - General Family Medicine [facility] [place] [address] 04/28/14 Christina Black, RN 08/28/14 Tia Levi RN 08/31/14 Ismael Mena MD Hematology & Oncology [address] [place] [address] 09/01/14 George Gleason MD Hematology & Oncology [address] [place] [address] 09/05/14 Lobito Blum MD Hematology & Oncology [address] [place] [address] 09/24/14 Reyes Tee MD Neurology DO NOT USE RETIRED 10/17/14 Jonas Torres DO Neurology [address] [place] [address] 10/21/14 Emergency, Nurse, RN 10/22/14 Emily Diez, SURINDER 12/29/14 Yoselin Bradley, SURINDER 01/20/15 Lauri Baldwin MD Neurological Surgery [address] [place] [address] 04/26/15 Gabriel Wilson MD Neurological Surgery RETIRED 03/17/2018 07/20/15 Mariposa Dougherty MD Internal Medicine [address] [place] [address] 10/06/15 Victoriano Loja, Hematology & MD Oncology [address] [place] [address]
--- OUTSIDE RECORDS SUMMARY | 2022-12-05 15:47 | XMS REPORT ---
Author Author [facility] Address Unknown Phone Unavailable Care Team Providers Care Manager Urology Name Role Phone YARISYD JOHN Unavailable PROBLEMS Type Condition ICD9-CM Code [id number] Code Onset Dates Condition S tatus W/U Status Risk SNOMED Code Notes Problem Arthralgia of hip, unspecified laterality M25.559 confirmed 72950746 Problem Grief F43.20 confirmed 84170508 Problem Hypertension I10 confirmed 0067397 3 Problem Hyperlipidemia, unspecified hyperlipidemia type E78.5 confirmed 10491361 Problem Other chronic pain G89.29 confirmed 8 4307959 Problem Bipolar 1 disorder, mixed F31.60 confirmed 85473074 Problem Gastritis without bleeding, unspecified chronicity, unspecified gastritis type K29.70 confirmed 967135218 Problem Sciatica of left side M54.32 confirmed 81978485 Problem Sensorineural hearing loss (SNHL) of both ears H90.3 confirmed [id number] 05/2016 mild Problem Acute left-sided low back pain with left-sided sciatica M54.42 confirmed 092413379 Problem Ab[address] CT scan, head R93.0 confirmed 816996960 Problem Night sweats R61 confirmed 0880311 0 Problem Bruising, spontaneous R23.3 confirmed 536516362 Problem Generalized anxiety disorder F41.1 confirme d 64674511 Problem History of colon polyps Z86.010 confirmed 780309812 Problem Hammer toe of right foot M20.41 confirmed 182726448 Problem Hematuria, unspecified type R31.9 confirmed 02087187 11/[address] Tom Problem Major depressive disorder, recurrent episode, moderate F33.1 confirmed 937497274 Problem Imbalance R26.89 confirmed 433815859 Problem Bladder spasm N32.89 confirmed 960945 006 Problem Age-related osteoporosis without current pathological fracture M81.0 confirmed 61424454 Problem Fibromyalgia M79.7 confirmed 3939020 7 Problem Hormone replacement therapy Z79.890 confirme d 721833725 Problem Plantar wart of right foot B07.0 confirmed [id number] Problem Slow transit constipation K59.01 confirmed 43278049 Problem Tobacco use disorder F17.200 confirmed 195904680 Problem Age-related osteoporosis wit h current pathological fracture with delayed healing, subsequent encounter M80.00XG confirmed 193811655 Problem Hearing loss, unspecified laterality H91.90 confirmed 13866888 Problem Other custodial (current) drug therapy Z79.899 confirmed 448626875 Problem Ataxia R27.0 confirmed 56031636 Problem Allergic rhinitis J30.9 confirmed 61 403588 Problem Post menopausal syndrome N95.1 confirmed 121854986 Problem Sciatica of right side M54.31 confirmed 93749865 Problem Hearing loss, unspecified hearing loss type, uns pecified laterality H91.90 confirmed 96082157 Problem Osteoporotic compression fracture of spine with delayed healing M80.88XG confirmed 25431623 ALLERGIES Allergen (clinical drug ingredient) Drug/Non Drug Allergy do cumented on EMR Reaction Allergy Type Onset Date Status Iodine(NDC Code:[address]-92) Unknown Drug Allergy Active pregabalin Lyrica(NDC Code:[address]-07) Unknown Drug Allergy Active hydromorphone Dilaudid(NDC Code:[address]-77) itching Drug Allerg y Active morphine Morphine Sulfate(NDC Code:[address]-25) Unknown Drug A llergy Active sulfamethoxazole / trimethoprim Bactrim(NDC Code:[address]-97) itching Drug Allergy Active ENCOUNTERS from 1955 to 2022-10-08 Encounter Location Date Provider Diagnosis [facility] [address] [facility] [id number] [place] [address] 11 Oct, 2020 [facility] IMMUNIZATIONS Vaccine Route Administration Date Status engerix hepatitis b adult (history) Unknown September 10 99 Administered engerix hepatitis b adult (history) Unknown Sept 21, 199 9 Administered COVID-19 Moderna (history) Unknown January 09, 2022 Admin istered COVID-19 Femi (history) Unknown September 11, 2020 Admin istered PRIVATE FLULAVAL QUAD 0.5ML (6 MO AND UP) 2018 IM Intramuscular Mar 20, 2018 Administered PRIVATE FLULAVAL QUAD 0.5ML (6 MO AND UP) 2018 IM Intramuscular Mar 12, 2019 Administered engerix hepatitis b adult (history) Unknown Aug 09, 1998 Administered PRIVATE PPSV23 (PNEUMOVAX) Unknown Apr 18, 2013 Pendi ng COVID-19 Femi (history) Unknown May 05, 2021 Admin istered PRIVATE HIGH DOSE FLU 22-23 (FLUZONE HD) AGE 65YRS AND UP Unknow n May 08, 2022 Administered FLUARIX QUAD (3 AND UP) 2016 IM Intramuscular Apr 05, 2017 Ad ministered FLUARIX QUAD P-FREE 3 AND UP .50 2015 IM Intramuscular Mar 30, 016 Administered FLUARIX QUAD (3 & UP)-GSK-2014 IM Intramuscular Apr 27, 2015 Administered PRIVATE TDAP (BOOSTRIX) IM Intramuscular Apr 24, 2017 Adminis tered PRIVATE TDAP (BOOSTRIX) IM Intramuscular Jul 26, 2016 Adminis tered influenza IIV3 (history) Unknown Apr 18, 2013 Pending PRIVATE PCV 13 (PREVNAR) IM Intramuscular Mar 30, 2016 Admini stered PRIVATE ZOSTAVAX (HERPES ZOSTER) SC Subcutaneous May [...] 30 days Active Gabapentin Active Calcium 1200 7904-4735 MG-UNIT 1 tablet with a meal Orally Once a day Active Pantoprazole Sodium 20 MG 1 tablet Orally Once a day taking 40 mg Active PROCEDURES No Information RESULTS No Results REASON FOR VISIT FYI MEDICAL (GENERAL) HISTORY Type Description Date Medical [...] Hospitalization History L1 fracture 05/2019 Hospitalization History [facility] X7 days 2020 Goals Section No Information Health Concerns No Information MEDICAL EQUIPMENT No Information MENTAL STATUS No Information FUNCTIONAL STATUS No Information ASSESSMENTS No Information PLAN OF TREATMENT Medication Medication Name Sig [...] directed for 30 days Next Appt Details Provider Name:JOHN MORTON, 10:30:00 AM, [address] [place] [address], [id number], [place], [address], Provider Name:JOHN MORTON, 10:30:00 AM, [address] [place] [address], [id number], [place], [address], Provider Name:JOHN MORTON, 10:30:00 AM, [address] [place] [address], [id number], [place], [address], Provider Name:MIRIAN SQUIRES, 2022-11-27 10 :20:00 AM, [address] [place] [address], [id number], [place], [address], Provider Name:JOHN MORTON, 10:00:00 AM, [address] [place] [address], [id number], [place], [address], Provider Name:JOHN MORTON, 10:00:00 AM, [address] [place] [address], [id number], [place], [address], Provider Name:JOHN MORTON, 09:30:00 AM, [address] [place] [address], [id number], [place], [address], Provider Name:JOHN MORTON, 09:30:00 AM, [address] [place] [address], [id number], [place], [address], Insurance Providers Payer Name Payer Address Payer Phone Insured Name Patient Relati onship to Insured Coverage Start Date Coverage End Date Subscriber Number Group Nu mber [address] [place] [id number] Sydnie Huffman Self - patient is the insured 2021 [id number] [facility] [address] [facility] [phone] Sydnie Huffman Self - patient is the insured [id number] [facility] MEDICARE Part A [address] [facility] [id number] Sydnie Huffman Self - patient is the insured 2017 [id number] MEDICATIONS ADMINISTERED Medication Instructions Date of Administration Dosage KENALOG 40 MG/ML (PER 10 MG) October, 40 mg KENALOG 40 MG/ML (PER 10 MG) Aug, 40 mg
--- OUTSIDE RECORDS SUMMARY | 2022-12-05 15:47 | XMS REPORT ---
Author Sydnie Yarbrough [facility] Address [address] [place] [id number] Care Team Providers Care Rotor Winder Name Role Phone MIREILLE HERMAN PCP Allergies [...] CULT SET UP? NO 01/31/2020 10:02 AM [id number] NOT DETECTED 03/22/2021 2:20 PM COLOR Light-Yellow [...] Date Medicare Part B Medicare Of [place] [id number] N/A [facility] [place] [facility] e On License Of [facility] Plan of [id number] N/A History of Encounters Visit Date Visit Type Provider 09/28/2022 Office visit MIREILLE HERMAN RECEPTION MANAGER 05/24/2022 Office visit Jama Kelly MD 07/26/2021 Office visit Jama Kelly MD 03/22/2021 Office visit MIREILLE HERMAN RECEPTION MANAGER 08/10/2020 Procedures Jama Kelly MD 04/06/2020 Office visit Jama Kelly MD 02/04/2020 Procedures Jama Kelly MD 02/02/2020 Surgery Jama Kelly MD 01/22/2020 Office visit MIREILLE HERMAN RECEPTION MANAGER
--- OUTSIDE RECORDS SUMMARY | 2022-12-05 15:48 | XMS REPORT | CCD ---
Author Author Sydnie Demarco Organization [facility] Address [address] [place] [address] Phone Care Team Providers Care Insurance Operations Rep Name Role Phone [facility] Unavailable CCM Unavailable Summary Purpose Interface Exchange Insurance Providers Payer name Policy type / Coverage type Covered democrat ID Effective Begin Date Effective End Date WPS Medicare Part B Medicare Part B [id number] Unknown Unkno wn [facility] Medicare Part B [id number] Unknown Unknown Family history Uncle Diagnosis Age [...] Description Effective Dates Tobacco history SNOMED CT: 44492959 Current every day smoker Marital status Unknown 11/06/2019 Number of children Unknown 4 grown 11/06/2019 Employment Unknown Retired 4 years ago due to health issues 11/06/2019 Number of years using tobacco Unknown 50 Number of cigarettes/day Unknown 20 (One Pack) [address]: 950949 Currently drinks alcohol 11/05 Frequency of drinks SNOMED CT: 484153740 1drink per week 020 Allergies, Adverse Reactions, Alerts Substance Reaction Codes Entered Date Inactivated Date Status MORPHINE SULFATE rash RxNorm: 68236 11/06/2019 No Inactive Date Active * OTHER REACTION - SEE ANSWER BOX Dilaudid- itching Unknown No Inactive Date Active hydrocodone pruritis Unknown 11/06/2019 No Inactive Date Active bactrim hives, RxNorm: 014227 02/10/2020 No Inactive Date Acti ve IODINE; IODINE CONTAINING rash, Unknown 11/06/2019 No Inactiv e Date Active Problems Condition Codes Effective Dates Condition Status Compression fracture of L3 vertebra, initial encounter [...] pain ICD-10: M54.9 ICD-9: 724.5 11/06/2019 Active Essential (primary) hypertension ICD-10: I10 ICD-9: 401.1 06/22/2020 Active Other allergic rhinitis ICD-10: J30.89 ICD-9: [...] Start Date Stop Date Status Fill Instructions Pepcid 20 mg tablet RxNorm: 433753 Take 1 Tablet(s) Oral two ti mes a day 10/26/2022 11/04/2022 Active please deliver Pepcid 20 mg tablet RxNorm: 513207 Take 1 Tablet(s) Oral two ti mes a day 10/26/2022 10/26/2022 Inactive please deliver pantoprazole 40 mg tablet,delayed release RxNorm: 268068 TAKE 1 TABLET BY MOUTH ONCE DAILY 10/19/2022 11/17/2022 Active This prescriptio n was filled on 09/26/2022. Any refills authorized will be placed on file. diazepam 5 mg tablet RxNorm: 525973 Take 1 Tablet(s) Oral as di rected 10/17/2022 No Stop Date Active 30 min prior to MRI - october repeat x 1 Percocet 5 mg-325 mg tablet RxNorm: 2908828 Take 1 Table t(s) Oral four times a day 10/17/2022 11/15/2022 Active calcitonin (salmon) 200 unit/actuation nasal spray RxNorm: 3 56404 INSTILL ONE SPRAY IN ONE NOSTRIL EVERY DAY ALTERNATING DAILY 10/02/2022 11/30/2022 Active estradiol 10 mcg vaginal tablet RxNorm: 097498 INSERT O NE TABLET VAGINALLY TWO TIMES PER WEEK 10/02/2022 03/18/2023 Active metoprolol succinate ER 50 mg tablet,extended release 24 hr RxNorm: 116464 Take 1 Tablet(s) Oral every day 09/17/2022 06/07/2024 Active This prescription was filled on 08/24/2022. Any refills authorized will be placed on file. naproxen 500 mg tablet RxNorm: 895593 Take 1 Tablet(s) Oral two times a day 09/17/2022 04/14/2023 Active This prescription wa s filled on 08/24/2022. Any refills authorized will be placed on file. fluticasone propionate 50 mcg/actuation nasal spray,suspensi on RxNorm: 1990835 USE TWO SPRAYS IN EACH NOSTRIL EVERY DAY 08/17/2022 12/14/2022 Active This prescription was filled on 07/25/2022. Any refills authorized will be placed on file. gabapentin 100 mg capsule RxNorm: 212803 TAKE ONE CAPSU LE BY MOUTH EVERY MORNING AND TAKE ONE CAPSULE BY MOUTH EARLY AFTERNOON 08/17/2022 01/13/2023 Ac tive This prescription was filled on 07/25/2022. Any refills authorized will be placed on file. gabapentin 300 mg capsule RxNorm: 776170 Take 1 Capsule(s) Oral at bed time 08/17/2022 01/13/2023 Active This prescription wa s filled on 07/25/2022. Any refills authorized will be placed on file. baclofen 20 mg tablet RxNorm: 747740 TAKE ONE TABLET BY MOUTH TWICE DAILY WITH FOOD OR MILK 07/25/2022 11/21/2022 Active cefdinir 300 mg capsule RxNorm: 750699 Take 1 Capsule(s) Oral t wo times a day 07/24/2022 07/30/2022 Inactive dicyclomine 20 mg tablet RxNorm: 668490 TAKE 1 TABLET B Y MOUTH THREE TIMES DAILY 07/20/2022 11/16/2022 Active This prescriptio n was filled on 06/27/2022. Any refills authorized will be placed on file. baclofen 20 mg tablet RxNorm: 612519 TAKE ONE TABLET BY MOUTH TWICE DAILY WITH FOOD OR MILK 06/27/2022 06/27/2022 Inactive calcitonin (salmon) 200 unit/actuation nasal spray RxNorm: 3 52497 INSTILL ONE SPRAY IN ONE NOSTRIL EVERY DAY ALTERNATING DAILY 06/19/2022 09/16/2022 Inactive This prescription was filled on 05/26/2022. Any refills authorized will be placed on file. baclofen 20 mg tablet RxNorm: 548917 TAKE ONE TABLET BY MOUTH TWICE DAILY WITH FOOD OR MILK 05/30/2022 05/30/2022 Inactive This prescriptio n was filled on 04/06/2021. Any refills authorized will be placed on file. pantoprazole 40 mg tablet,delayed release RxNorm: 332696 TAKE 1 TABLET BY MOUTH ONCE DAILY 05/19/2022 10/15/2022 Inactive This prescriptio n was filled on 04/26/2022. Any refills authorized will be placed on file. cephalexin 500 mg capsule RxNorm: 430959 Take 1 Capsule (s) Oral three times a day 04/25/2022 05/01/2022 Inactive cephalexin 500 mg capsule RxNorm: 230609 Take 1 Capsule (s) Oral three times a day 04/25/2022 04/25/2022 Inactive estradiol 0.01% (0.1 mg/gram) vaginal cream RxNorm: 944286 A PEA SIZE AMOUNT ACROSS URETHRAL OPENING DAILY FOR 21 DAYS THEN ON SUNDAY., SUNDAY., SUNDAY. THEREAFTER 04/20/2022 10/16/2022 Inactive This prescriptio n was filled on 03/27/2022. Any refills authorized will be placed on file. Augmentin 875 mg-125 mg tablet RxNorm: 541478 Take 1 Ta blet(s) Oral two times a day 03/28/2022 04/01/2022 Inactive dicyclomine 20 mg tablet RxNorm: 832486 TAKE 1 TABLET B Y MOUTH THREE TIMES DAILY 03/20/2022 03/20/2022 Inactive This prescriptio n was filled on 02/23/2022. Any refills authorized will be placed on file. gabapentin 100 mg capsule RxNorm: 778340 TAKE ONE CAPSU LE BY MOUTH EVERY MORNING AND TAKE ONE CAPSULE BY MOUTH EARLY AFTERNOON 03/20/2022 08/16/2022 In active This prescription was filled on 02/23/2022. Any refills authorized will be placed on file. montelukast 10 mg tablet RxNorm: 869498 Take 1 Tablet(s) Oral a t bed time 03/20/2022 05/30/2022 Inactive This prescription wa s filled on 02/23/2022. Any refills authorized will be placed on file. gabapentin 300 mg capsule RxNorm: 160478 Take 1 Capsule(s) Oral at bed time 03/20/2022 08/16/2022 Inactive This prescription wa s filled on 02/23/2022. Any refills authorized will be placed on file. calcitonin (salmon) 200 unit/actuation nasal spray RxNorm: 3 06800 INSTILL ONE SPRAY IN ONE NOSTRIL EVERY DAY ALTERNATING DAILY 03/20/2022 06/17/2022 Inactive This prescription was filled on 02/23/2022. Any refills authorized will be placed on file. ceftriaxone 500 mg solution for injection RxNorm: 4569831 Take I njection 03/15/2022 03/15/2022 Inactive ceftriaxone 500 mg solution for injection RxNorm: 5921728 Take I njection 03/14/2022 03/14/2022 Inactive ceftriaxone 500 mg solution for injection RxNorm: 1776507 Take I njection 03/13/2022 03/13/2022 Inactive ceftriaxone 500 mg solution for injection RxNorm: 3179345 Take I njection 03/10/2022 03/10/2022 Inactive amoxicillin 875 mg-potassium clavulanate 125 mg tablet RxNor m: 019428 Take 1 Tablet(s) Oral two times a day 03/09/2022 03/13/2022 Inactive ceftriaxone 500 mg solution for injection RxNorm: 0515458 Take I njection 03/09/2022 03/09/2022 Inactive estradiol 10 mcg vaginal tablet RxNorm: 893014 INSERT O NE TABLET VAGINALLY TWO TIMES PER WEEK 03/07/2022 08/21/2022 Inactive This prescriptio n was filled on 12/20/2021. Any refills authorized will be placed on file. cephalexin 500 mg capsule RxNorm: 317966 Take 1 Capsule (s) Oral three times a day 02/24/2022 03/02/2022 Inactive metoprolol succinate ER 50 mg tablet,extended release 24 hr RxNorm: 633721 Take 1 Tablet(s) Oral every day 02/20/2022 02/20/2022 Inactive This prescription was filled on 01/26/2022. Any refills authorized will be placed on file. naproxen 500 mg tablet RxNorm: 389517 Take 1 Tablet(s) Oral two times a day 02/20/2022 02/20/2022 Inactive This prescription wa s filled on 01/26/2022. Any refills authorized will be placed on file. fluticasone propionate 50 mcg/actuation nasal spray,suspensi on RxNorm: 8919122 USE TWO SPRAYS IN EACH NOSTRIL EVERY DAY 02/05/2022 06/04/2022 Inactiv e calcitonin (salmon) 200 unit/actuation nasal spray RxNorm: 3 03235 INSTILL ONE SPRAY IN ONE NOSTRIL EVERY DAY ALTERNATING DAILY 2021 2021 Inactive pantoprazole 40 mg tablet,delayed release RxNorm: 896853 TAKE 1 TABLET BY MOUTH ONCE DAILY 12/21/2021 12/21/2021 Inactive This prescriptio n was filled on 11/28/2021. Any refills authorized will be placed on file. Cipro 500 mg tablet RxNorm: 304548 Take 1 Tablet(s) Oral two ti mes a day 12/09/2021 12/15/2021 Inactive Pyridium 200 mg tablet RxNorm: 8815657 Take 1 Tablet(s) Oral three times a day as needed 12/02/2021 No Stop Date Active cephalexin 500 mg capsule RxNorm: 212387 Take 1 Capsule (s) Oral three times a day 12/02/2021 12/08/2021 Inactive levocetirizine 5 mg tablet RxNorm: 233377 Take 1 Tablet(s) Oral every day 11/28/2021 11/22/2022 Active dicyclomine 20 mg tablet RxNorm: 704702 TAKE 1 TABLET B Y MOUTH THREE TIMES DAILY 11/20/2021 11/20/2021 Inactive This prescriptio n was filled on 10/28/2021. Any refills authorized will be placed on file. calcitonin (salmon) 200 unit/actuation nasal spray RxNorm: 3 46047 INSTILL ONE SPRAY IN ONE NOSTRIL EVERY DAY ALTERNATING DAILY 11/20/2021 12/19/2021 Inactive This prescription was filled on 10/28/2021. Any refills authorized will be placed on file. celecoxib 200 mg capsule RxNorm: 159963 Take 1 Capsule(s) Oral two times a day 11/02/2021 05/02/2022 Inactive estradiol 0.01% (0.1 mg/gram) vaginal cream RxNorm: 598279 A PEA SIZE AMOUNT ACROSS URETHRAL OPENING DAILY FOR 21 DAYS THEN ON SUNDAY., SUNDAY., SUNDAY. THEREAFTER 10/28/2021 10/28/2021 Inactive cephalexin 500 mg tablet RxNorm: 459248 Take 1 Tablet(s) Oral t hree times a day 10/27/2021 11/02/2021 Inactive ceftriaxone 500 mg solution for injection RxNorm: 1417336 Take I njection 10/27/2021 10/27/2021 Inactive naproxen 500 mg tablet RxNorm: 884046 Take 1 Tablet(s) Oral two times a day 10/24/2021 10/24/2021 Inactive This prescription wa s filled on 09/28/2021. Any refills authorized will be placed on file. gabapentin 100 mg capsule RxNorm: 318845 TAKE ONE CAPSU LE BY MOUTH EVERY MORNING AND TAKE ONE CAPSULE BY MOUTH EARLY AFTERNOON 10/24/2021 10/24/2021 In active This prescription was filled on 09/28/2021. Any refills authorized will be placed on file. gabapentin 300 mg capsule RxNorm: 146560 Take 1 Capsule(s) Oral at bed time 10/24/2021 10/24/2021 Inactive This prescription wa s filled on 09/28/2021. Any refills authorized will be placed on file. Prolia 60 mg/mL subcutaneous syringe RxNorm: 080713 1 M illiliter(s) Subcutaneous as doctor directed every 6 months 10/17/2021 No Stop Date Active Percocet 5 mg-325 mg tablet RxNorm: 8018217 Take 1 Table t(s) Oral four times a day 09/30/2021 10/29/2021 Inactive calcitonin (salmon) 200 unit/actuation nasal spray RxNorm: 3 84936 Take 1 Theodore Nasal every day one spray in one nostril every day - alternate nostrils daily 09/28/2021 09/28/2021 Inactive Percocet 5 mg-325 mg tablet RxNorm: 5694217 Take 1 Table t(s) Oral Every 6 hrs as needed 09/22/2021 09/22/2021 Inactive Percocet 5 mg-325 mg tablet RxNorm: 3602146 Take 1 Table t(s) Oral Every 6 hrs as needed 09/22/2021 09/22/2021 Inactive estradiol 10 mcg vaginal tablet RxNorm: 054844 INSERT O NE TABLET VAGINALLY TWO TIMES PER WEEK 09/19/2021 03/05/2022 Inactive baclofen 20 mg tablet RxNorm: 572280 TAKE ONE TABLET BY MOUTH TWICE DAILY WITH FOOD OR MILK 08/08/2021 11/05/2021 Inactive This prescriptio n was filled on 04/06/2021. Any refills authorized will be placed on file. dicyclomine 20 mg tablet RxNorm: 897889 TAKE 1 TABLET B Y MOUTH THREE TIMES DAILY 07/25/2021 07/25/2021 Inactive This prescriptio n was filled on 06/30/2021. Any refills authorized will be placed on file. pantoprazole 40 mg tablet,delayed release RxNorm: 365524 TAKE 1 TABLET BY MOUTH ONCE DAILY 07/25/2021 07/25/2021 Inactive This prescriptio n was filled on 06/30/2021. Any refills authorized will be placed on file. metoprolol succinate ER 50 mg tablet,extended release 24 hr RxNorm: 595003 Take 1 Tablet(s) Oral every day 07/25/2021 07/25/2021 Inactive This prescription was filled on 06/30/2021. Any refills authorized will be placed on file. naproxen 500 mg tablet RxNorm: 655566 Take 1 Tablet(s) Oral two times a day 06/23/2021 10/20/2021 Inactive This prescription wa s filled on 05/31/2021. Any refills authorized will be placed on file. gabapentin 100 mg capsule RxNorm: 085344 Take 1 Capsule (s) Oral as directed 1 tab AM, 1 tab early afternoon, and 3 tab hs 06/01/2021 06/01/2021 Inac tive dicyclomine 20 mg tablet RxNorm: 938961 TAKE 1 TABLET B Y MOUTH THREE TIMES DAILY 05/31/2021 05/31/2021 Inactive cephalexin 500 mg tablet RxNorm: 461427 Take 1 Tablet(s) Oral t wo times a day 05/18/2021 05/24/2021 Inactive Diflucan 150 mg tablet RxNorm: 016893 Take 1 Tablet(s) Oral shoshana ry day 05/18/2021 05/24/2021 Inactive baclofen 20 mg tablet RxNorm: 890580 TAKE ONE TABLET BY MOUTH TWICE DAILY WITH FOOD OR MILK 04/29/2021 06/27/2021 Inactive This prescriptio n was filled on 04/06/2021. Any refills authorized will be placed on file. Tylenol Extra Strength 500 mg tablet RxNorm: 549750 2 T ablet(s) Oral three times a day 04/14/2021 No Stop Date Active montelukast 10 mg tablet RxNorm: 631978 TAKE 1 TABLET BY MOUTH AT BEDTIME 03/15/2021 05/25/2021 Inactive Singulair 10 mg tablet RxNorm: 973259 TAKE 1 TABLET BY MOUTH AT BEDTIME 03/14/2021 04/12/2021 Inactive Diflucan 150 mg tablet RxNorm: 212965 Take 1 Tablet(s) Oral shoshana ry day 03/11/2021 03/13/2021 Inactive Diflucan 150 mg tablet RxNorm: 206881 Take 1 Tablet(s) Oral shoshana ry day 03/11/2021 03/11/2021 Inactive baclofen 20 mg tablet RxNorm: 780106 TAKE ONE TABLET BY MOUTH TWICE DAILY WITH FOOD OR MILK 03/07/2021 03/07/2021 Inactive This prescriptio n was filled on 02/10/2021. Any refills authorized will be placed on file. fluticasone propionate 50 mcg/actuation nasal spray,suspensi on RxNorm: 9354090 USE TWO SPRAYS IN EACH NOSTRIL EVERY DAY 03/07/2021 07/04/2021 Inactiv e This prescription was filled on 02/10/2021. Any refills authorized will be placed on file. naproxen 500 mg tablet RxNorm: 005921 Take 1 Tablet(s) Oral two times a day 03/07/2021 03/07/2021 Inactive This prescription wa s filled on 02/10/2021. Any refills authorized will be placed on file. Augmentin 875 mg-125 mg tablet RxNorm: 206074 1 Tablet(s) Oral two times a day 02/18/2021 02/18/2021 Inactive Augmentin 875 mg-125 mg tablet RxNorm: 381339 1 Tablet(s) Oral two times a day 02/18/2021 02/24/2021 Inactive Keflex 500 mg capsule RxNorm: 004006 1 Capsule(s) Oral three ti mes a day 02/14/2021 02/17/2021 Inactive pantoprazole 40 mg tablet,delayed release RxNorm: 288473 TAKE 1 TABLET BY MOUTH ONCE DAILY 02/04/2021 07/03/2021 Inactive This prescriptio n was filled on 01/12/2021. Any refills authorized will be placed on file. gabapentin 400 mg capsule RxNorm: 137103 1 Capsule(s) Oral at b ed time 02/01/2021 05/01/2021 Inactive Vitamin D3 125 mcg (5,000 unit) tablet RxNorm: 352425 1 Tablet(s) Oral every day 01/25/2021 No Stop Date Active baclofen 20 mg tablet RxNorm: 367278 TAKE ONE TABLET BY MOUTH TWICE DAILY WITH FOOD OR MILK 01/05/2021 03/05/2021 Inactive This prescriptio n was filled on 12/13/2020. Any refills authorized will be placed on file. Colace 100 mg capsule RxNorm: 5599626 1 Capsule(s) Oral every day 0 01/03/2021 02/01/2021 Inactive Miralax 17 gram/dose oral powder RxNorm: 308539 17 Gram (s) Oral every day as needed 01/03/2021 01/03/2021 Inactive Colace 100 mg capsule RxNorm: 4406705 1 Capsule(s) Oral every day 0 01/03/2021 01/03/2021 Inactive Keflex 500 mg capsule RxNorm: 462928 1 Capsule(s) Oral three ti mes a day 12/22/2020 12/28/2020 Inactive gabapentin 300 mg capsule RxNorm: 030595 1 Capsule(s) Oral at b ed time 12/17/2020 01/15/2021 Inactive gabapentin 300 mg capsule RxNorm: 373833 1 Capsule(s) Oral at b ed time 12/17/2020 12/17/2020 Inactive prednisone 20 mg tablet RxNorm: 733835 2 Tablet(s) Oral every day 0 11/30/2020 11/29/2020 Inactive prednisone 20 mg tablet RxNorm: 696883 2 Tablet(s) Oral every day 0 11/30/2020 12/05/2020 Inactive Kenalog 40 mg/mL suspension for injection RxNorm: 9236374 1 Milliliter(s) Injection 11/23/2020 11/23/2020 Inactive Tessalon Perles 100 mg capsule RxNorm: 094646 2 Capsule (s) Oral three times a day as needed cough 11/19/2020 No Stop Date Active Augmentin 500 mg-125 mg tablet RxNorm: 199768 1 Tablet( s) Oral three times a day 11/17/2020 11/24/2020 Inactive Xyzal 5 mg tablet RxNorm: 695751 TAKE 1 TABLET BY MOUTH DAILY 11/1111/05/2021 Inactive naproxen 500 mg tablet RxNorm: 391783 1 Tablet(s) Oral two time s a day 11/08/2020 11/08/2020 Inactive baclofen 20 mg tablet RxNorm: 874401 TAKE ONE TABLET BY MOUTH TWICE DAILY WITH FOOD OR MILK 11/04/2020 01/02/2021 Inactive Kenalog 40 mg/mL suspension for injection RxNorm: 9481195 Milliliter(s) Injection 10/29/2020 10/29/2020 Inactive Flonase Allergy Relief 50 mcg/actuation nasal spray,suspensi on RxNorm: 3197320 2 Theodore Nasal every day 10/27/2020 02/23/2021 Inactive baclofen 20 mg tablet RxNorm: 972670 TAKE 1 TABLET BY M OUTH TWICE DAILY WITH FOOD OR MILK 09/27/2020 10/26/2020 Inactive Flonase Allergy Relief 50 mcg/actuation nasal spray,suspensi on RxNorm: 5375520 2 Theodore Nasal every day 09/06/2020 10/26/2020 Inactive Flonase Allergy Relief 50 mcg/actuation nasal spray,suspensi on RxNorm: 8427061 2 Theodore Nasal every day 08/30/2020 09/05/2020 Inactive pantoprazole 40 mg tablet,delayed release RxNorm: 474623 TAKE 1 TABLET BY MOUTH ONCE DAILY 08/30/2020 08/30/2020 Inactive Xyzal 5 mg tablet RxNorm: 834281 TAKE 1 TABLET BY MOUTH DAILY 08/2011/10/2020 Inactive metoprolol succinate ER 50 mg tablet,extended release 24 hr RxNorm: 235784 1 Tablet(s) Oral every day 08/20/2020 08/20/2020 Inactive Xyzal 5 mg tablet RxNorm: 246505 TAKE 1 TABLET BY MOUTH DAILY 08/2008/19/2020 Inactive dicyclomine 20 mg tablet RxNorm: 999386 TAKE 1 TABLET B Y MOUTH THREE TIMES DAILY 07/29/2020 07/29/2020 Inactive This prescriptio n was filled on 07/06/2020. Any refills authorized will be placed on file. metoprolol succinate ER 25 mg tablet,extended release 24 hr RxNorm: 396440 1.5 Tablet(s) Oral every day 07/22/2020 08/19/2020 Inactive Cipro 500 mg tablet RxNorm: 020304 1 Tablet(s) Oral two times a day 07/16/2020 07/23/2020 Inactive baclofen 20 mg tablet RxNorm: 181401 TAKE 1 TABLET BY M OUTH TWICE DAILY WITH FOOD OR MILK 07/14/2020 09/12/2020 Inactive Vagifem 10 mcg vaginal tablet RxNorm: 050276 INSERT 1 TABLET TW O TIMES A WEEKPV 07/14/2020 12/29/2020 Inactive Vagifem 10 mcg vaginal tablet RxNorm: 547016 INSERT 1 TABLET TW O TIMES A WEEKPV 07/07/2020 07/13/2020 Inactive baclofen 20 mg tablet RxNorm: 848156 TAKE 1 TABLET BY M OUTH TWICE DAILY WITH FOOD OR MILK 06/30/2020 07/13/2020 Inactive tramadol 50 mg tablet RxNorm: 705931 Tablet(s) Oral dr quirino sneed 06/22/2020 No Stop Date Active estradiol 1 mg tablet RxNorm: 211520 1 Tablet(s) Oral every day 10/202006/17/2021 Inactive naproxen 500 mg tablet RxNorm: 069492 1 Tablet(s) Oral two time s a day 06/22/2020 11/07/2020 Inactive metoprolol succinate ER 25 mg tablet,extended release 24 hr RxNorm: 103588 1 Tablet(s) Oral every day 06/22/2020 07/21/2020 Inactive naproxen 500 mg tablet RxNorm: 488509 1 Tablet(s) Oral two time s a day 06/16/2020 06/21/2020 Inactive Flonase Allergy Relief 50 mcg/actuation nasal spray,suspensi on RxNorm: 2854479 2 Theodore Nasal every day 05/31/2020 08/28/2020 Inactive dicyclomine 20 mg tablet RxNorm: 225593 TAKE 1 TABLET B Y MOUTH THREE TIMES DAILY 05/31/2020 07/28/2020 Inactive This prescriptio n was filled on 05/06/2020. Any refills authorized will be placed on file. prednisone 20 mg tablet RxNorm: 012227 2 Tablet(s) Oral every day 1 07/28/2019 05/26/2020 Inactive prednisone 20 mg tablet RxNorm: 737943 2 Tablet(s) Oral every day 1 07/28/2019 06/01/2020 Inactive Keflex 500 mg capsule RxNorm: 447757 1 Capsule(s) Oral three ti mes a day 05/24/2020 05/31/2020 Inactive naproxen 500 mg tablet RxNorm: 711626 1 Tablet(s) Oral two time s a day 05/10/2020 05/14/2020 Inactive dicyclomine 20 mg tablet RxNorm: 597766 TAKE 1 TABLET B Y MOUTH THREE TIMES DAILY 04/07/2020 05/30/2020 Inactive Singulair 10 mg tablet RxNorm: 970124 TAKE 1 TABLET BY MOUTH AT BEDTIME 04/07/2020 04/07/2020 Inactive meclizine 25 mg tablet RxNorm: 367985 1 Tablet(s) Oral three times a day as needed Dizziness 04/05/2020 No Stop Date Active Tessalon Perles 100 mg capsule RxNorm: 046778 2 Capsule (s) Oral three times a day as needed cough 03/22/2020 04/05/2020 Inactive Xyzal 5 mg tablet RxNorm: 779787 1 Tablet(s) Oral every day 07/20/2020 Inactive prednisone 20 mg tablet RxNorm: 782671 2 Tablet(s) Oral every day 1 03/26/2020 Inactive naproxen 500 mg tablet RxNorm: 282971 1 Tablet(s) Oral two time s a day 03/17/2020 03/22/2020 Inactive mupirocin 2 % topical ointment RxNorm: 029637 1 Application Top ical as directed 03/15/2020 04/05/2020 Inactive naproxen 500 mg tablet RxNorm: 048607 1 Tablet(s) Oral two time s a day 03/11/2020 03/16/2020 Inactive Kenalog 40 mg/mL suspension for injection RxNorm: 1292502 1 Milliliter(s) Injection 03/11/2020 03/11/2020 Inactive Zithromax Z-David 250 mg tablet RxNorm: 726630 Tablet(s) Oral as directed 03/11/2020 04/05/2020 Inactive baclofen 20 mg tablet RxNorm: 990740 TAKE 1 TABLET BY [facility] TWICE DAILY WITH FOOD OR MILK 03/09/2020 06/29/2020 Inactive Toviaz 4 mg tablet,extended release RxNorm: 495357 1 Tablet(s) Oral every day 02/17/2020 04/05/2020 Inactive Toviaz 4 mg tablet,extended release RxNorm: 609845 1 Tablet(s) Oral every day 02/17/2020 09/14/2020 Inactive dicyclomine 20 mg tablet RxNorm: 794674 1 Tablet(s) Oral three times a day 02/13/2020 04/06/2020 Inactive Flonase Allergy Relief 50 mcg/actuation nasal spray,suspensi on RxNorm: 1194902 2 Theodore Nasal every day 02/13/2020 05/30/2020 Inactive ceftriaxone 500 mg solution for injection RxNorm: 7275325 Injection 01/14/2020 01/14/2020 Inactive Cipro 500 mg tablet RxNorm: 966727 1 Tablet(s) Oral two times a day 01/14/2020 01/24/2020 Inactive ceftriaxone 500 mg solution for injection RxNorm: 7354096 Injection 12/30/2019 12/30/2019 Inactive prednisone 20 mg tablet RxNorm: 093441 2 Tablet(s) Oral every day 0 12/30/2019 01/03/2020 Inactive Singulair 10 mg tablet RxNorm: 378974 1 Tablet(s) Oral every ni ght at bedtime 12/30/2019 04/06/2020 Inactive Keflex 500 mg capsule RxNorm: 716017 1 Capsule(s) Oral three ti mes a day 12/30/2019 01/09/2020 Inactive Vagifem 10 mcg vaginal tablet RxNorm: 808761 INSERT 1 T ABLET TWO TIMES A WEEK PV 12/15/2019 05/30/2020 Inactive pantoprazole 40 mg tablet,delayed release RxNorm: 628180 TAKE 1 TABLET BY MOUTH ONCE DAILY 12/15/2019 06/11/2020 Inactive baclofen 20 mg tablet RxNorm: 920812 1T PO BID WITH FOOD OR MILK 03/08/2020 Inactive prednisone 20 mg tablet RxNorm: 224049 2 Tablet(s) Oral every day 0 12/02/2019 12/07/2019 Inactive Cipro 500 mg tablet RxNorm: 950688 1 Tablet(s) Oral two times a day add on to the 7 days for a total of 10 days 12/02/2019 12/05/2019 Inactive Macrobid 100 mg capsule RxNorm: 439317 1 Capsule(s) Oral two ti mes a day 11/20/2019 11/27/2019 Inactive Macrobid 100 mg capsule RxNorm: 335628 1 Capsule(s) Oral two ti mes a day 11/20/2019 11/19/2019 Inactive cranberry concentrate-ascorbic acid 4,200 mg-20 mg capsule R xNorm: 1 Capsule(s) Oral every day 11/06/2019 No Stop Date Active Claritin 10 mg tablet RxNorm: 358669 1 Tablet(s) Oral every day No Stop Date Active biotin 5,000 mcg disintegrating tablet RxNorm: 5006200 1 Tablet(s) Oral every day 11/06/2019 No Stop Date Active Fetzima 120 mg capsule,extended release RxNorm: 9314248 1 Capsule(s) Oral every day 11/06/2019 No Stop Date Active Vitamin C 1,000 mg tablet RxNorm: 221500 2 Tablet(s) Oral every day 11/06/2019 No Stop Date Active Calcium 500 500 mg calcium (1,250 mg) tablet RxNorm: 870105 1 Tablet(s) Oral every day 11/06/2019 No Stop Date Active Depakote ER 500 mg tablet,extended release RxNorm: 4880973 2 Tablet(s) Oral every night at bedtime 11/06/2019 No Stop Date Active hydroxyzine HCl 10 mg tablet RxNorm: 093133 3 Tablet(s) Oral as needed 11/06/2019 No Stop Date Active Voltaren 1 % topical gel RxNorm: 392404 Topical as needed 0 No Stop Date Active Benadryl Allergy 25 mg tablet RxNorm: 3328839 2 Tablet(s ) Oral every night at bedtime 11/06/2019 06/21/2020 Inactive Vagifem 10 mcg vaginal tablet RxNorm: 373377 Tablet(s) Vaginal 2 times weekly 11/06/2019 12/14/2019 Inactive pantoprazole 40 mg tablet,delayed release RxNorm: 189627 1 Tablet(s) Oral every day 11/06/2019 12/14/2019 Inactive estradiol 2 mg tablet RxNorm: 791363 1 Tablet(s) Oral every day 06/21/2020 Inactive Flonase Allergy Relief 50 mcg/actuation nasal spray,suspensi on RxNorm: 7671212 1 Theodore Nasal every day 11/06/2019 02/12/2020 Inactive ibuprofen 600 mg tablet RxNorm: 454455 1 Tablet(s) Oral as needed 0 11/06/2019 06/21/2020 Inactive Vitamin D3 50 mcg (2,000 unit) tablet RxNorm: 490750 2 Tablet(s ) Oral every day 11/06/2019 01/24/2021 Inactive baclofen 20 mg tablet RxNorm: 983670 1 Tablet(s) Oral two times a day 11/06/2019 12/14/2019 Inactive Boniva 150 mg tablet RxNorm: 435902 1 Tablet(s) Oral monthly 201906/21/2020 Inactive dicyclomine 20 mg tablet RxNorm: 411151 1 Tablet(s) Oral three times a day 11/06/2019 02/12/2020 Inactive Miralax 17 gram/dose oral powder RxNorm: 033730 Oral as needed 10/1701/03/2021 Inactive B Complex-Vitamin B12 oral RxNorm: 76416 oral 11/06/2019 Active Reclast intravenous RxNorm: 074263 intravenous 06/22/2020 Ac tive Probiotic oral RxNorm: 6205 oral 11/06/2019 Active Ocuvite Adult 50 Plus oral RxNorm: oral 11/06/2019 Ac tive Multivitamin 50 Plus oral RxNorm: oral 11/06/2019 Act mitchell Medication Administered Medication Codes Instructions Start Date Status ceftriaxone 500 mg solution for injection RxNorm: 5307653 03/15/2022 No longer Active ceftriaxone 500 mg solution for injection RxNorm: 5273688 03/14/2022 No longer Active ceftriaxone 500 mg solution for injection RxNorm: 2750821 03/13/2022 No longer Active ceftriaxone 500 mg solution for injection RxNorm: 3319064 03/10/2022 No longer Active ceftriaxone 500 mg solution for injection RxNorm: 2045936 03/09/2022 No longer Active ceftriaxone 500 mg solution for injection RxNorm: 4879868 10/27/2021 No longer Active Kenalog 40 mg/mL suspension for injection RxNorm: 9452353 1Milli liter 11/23/2020 No longer Active Kenalog 40 mg/mL suspension for injection RxNorm: 8400496 Millilite r 10/29/2020 No longer Active Kenalog 40 mg/mL suspension for injection RxNorm: 1947810 1Milli liter 03/11/2020 No longer Active ceftriaxone 500 mg solution for injection RxNorm: 1283360 01/14/2020 No longer Active ceftriaxone 500 mg solution for injection RxNorm: 9313477 12/30/2019 No longer Active Immunizations Vaccine Codes Dose Date Status Influenza CVX: 150 0.5 04/08/2021 Complete Influenza CVX: 150 0.5 04/07/2020 Complete Tetanus/Diptheria CVX: 09 12/16/2016 Zoster CVX: 121 12/17/2007 Results Observation Observation Code Item Item Code Result Date S ervice Location CULTURE, URINE M100 URINE CULTURE See [...] epi None 2 Unknown Urinalysis Ord28 U-RBC 10-20 per/HPF 02/24/2022 [...] CULTURE See Note 05/23/2021 Unknown Comp Metabolic Yhk408 NA 128 mEq/L 05/18/2021 Unkn own Comp Metabolic Wgn435 K 5.0 mEq/L 05/18/2021 Unkn own Comp Metabolic Ney868 CL 93 mEq/L 05/18/2021 Unkn own Comp Metabolic Mqt484 CO2 29.0 mEq/L 05/18/2021 Unk nown Comp Metabolic Llu907 ANION GAP 11 05/18/2021 Unkn own Comp Metabolic Poz551 GLUCOSE 80 mg/dL 05/18/2021 Unkn own Comp Metabolic Aua171 Creat 0.7 mg/dL 05/18/2021 Unkn own Comp Metabolic Bkh141 eGFR 87 ml/min/1.73m2 05/18/20 21 Unknown Comp Metabolic Smu512 BUN 9 mg/dL 05/18/2021 Unkn own Comp Metabolic Luc418 B/C Ratio 12.5 Ratio 05/18/2021 Unk nown Comp Metabolic Sgj455 CALCIUM 8.7 mg/dL 05/18/2021 Unkn own Comp Metabolic Knx932 ALK PHOS 65 U/L 05/18/2021 Unkn own Comp Metabolic Uzu369 AST(SGOT) 9 U/L 05/18/2021 Unkn own Comp Metabolic Nwr924 ALT(SGPT) 7 U/L 05/18/2021 Unkn own Comp Metabolic Lcq607 BILI T 0.3 mg/dL 05/18/2021 Unkn own Comp Metabolic Wwf688 ALBUMIN 4.0 g/dL 05/18/2021 Unkn own Comp Metabolic Mox137 TPRO 6.0 g/dL 05/18/2021 Unkn own Comp Metabolic Ayx393 GLOB 2.1 g/dL 05/18/2021 Unkn own Comp Metabolic Buy536 A/G Ratio 1.9 Ratio 05/18/2021 Unkn own Comp Metabolic Jaz857 Osmo 255 mOsmo 05/18/2021 Unkn own C-Reactive Protein Qnt Crqnt CRP 0.1 mg/dl 2020 Unknown Sed Rate Ord21 ESR 5 mm/hr 04/15/2021 Unknown Ra Factor Xfz009 RA FACTOR <10 IU/ml 04/15/2021 Unknown CULTURE, [...] Antinuclear Antibody Negative 06/28/2020 Unknown Ra Factor Rtw320 RA FACTOR <10 IU/ml 06/25/2020 Unknown C-Reactive [...] 01/14/20 20 Unknown Cbc With Differential Ord2 Mckean% 7.8 % 01/14/20 20 Unknown Cbc With [...] K/ul 020 Unknown Cbc With Differential Ord2 Mckean ABS# 1.0 K/ul 01/14/20 20 Unknown Cbc With Differential Ord2 Eos ABS# 0.1 K/ul 01/14/20 20 Unknown Cbc With Differential Ord2 Baso ABS# 0.1 K/ul 01/14/20 20 Unknown Comp Metabolic Qsx641 NA 130 mEq/L 01/14/2020 Unkn own Comp Metabolic Kkb530 K 4.6 mEq/L 01/14/2020 Unkn own Comp Metabolic Ezu136 CL 92 mEq/L 01/14/2020 Unkn own Comp Metabolic Dqa318 CO2 31.0 mEq/L 01/14/2020 Unk nown Comp Metabolic Vxb827 ANION GAP 12 01/14/2020 Unkn own Comp Metabolic Fjh351 GLUCOSE 81 mg/dL 01/14/2020 Unkn own Comp Metabolic Tqe815 Creat 0.8 mg/dL 01/14/2020 Unkn own Comp Metabolic Mqi182 eGFR 77 ml/min/1.73m2 01/14/20 20 Unknown Comp Metabolic Tsh150 BUN 12 mg/dL 01/14/2020 Unkn own Comp Metabolic Bsa486 B/C Ratio 15.0 Ratio 01/14/2020 Unk nown Comp Metabolic Uax055 CALCIUM 9.2 mg/dL 01/14/2020 Unkn own Comp Metabolic Iqh349 ALK PHOS 71 U/L 01/14/2020 Unkn own Comp Metabolic Yfa685 AST(SGOT) 13 U/L 01/14/2020 Unkn own Comp Metabolic Nas767 ALT(SGPT) 11 U/L 01/14/2020 Unkn own Comp Metabolic Tji332 BILI T 0.4 mg/dL 01/14/2020 Unkn own Comp Metabolic Hhi676 ALBUMIN 3.9 g/dL 01/14/2020 Unkn own Comp Metabolic Jyi617 TPRO 6.2 g/dL 01/14/2020 Unkn own Comp Metabolic Xtp950 GLOB 2.3 g/dL 01/14/2020 Unkn own Comp Metabolic Vzy654 A/G Ratio 1.7 Ratio 01/14/2020 Unkn own Comp Metabolic Vcd865 Osmo 260 mOsmo 01/14/2020 Unkn own CULTURE, [...] CPT-4: G0444 07/24/2022 THER/PROPH/DIAG INJ SC/IM CPT-4: 52858 03/15/2022 ROCEPHIN, PER 250 MG CPT-4: J0696 03/15/2022 THER/PROPH/DIAG INJ SC/IM CPT-4: 94734 03/14/2022 ROCEPHIN, PER 250 MG CPT-4: J0696 03/14/2022 THER/PROPH/DIAG INJ SC/IM CPT-4: 80503 03/13/2022 ROCEPHIN, PER 250 MG CPT-4: J0696 03/13/2022 THER/PROPH/DIAG INJ SC/IM CPT-4: 63362 03/10/2022 ROCEPHIN, PER 250 MG CPT-4: J0696 03/10/2022 THER/PROPH/DIAG INJ SC/IM CPT-4: 42425 03/09/2022 ROCEPHIN, PER 250 MG CPT-4: J0696 03/09/2022 THER/PROPH/DIAG INJ SC/IM CPT-4: 68518 10/27/2021 ROCEPHIN, PER 250 MG CPT-4: J0696 10/27/2021 URINALYSIS NONAUTO W/O SCOPE CPT-4: 90174 05/18/2021 IIV4 VACC NO PRSV 0.5 ML IM CPT-4: 54436 04/08/2021 IIV4 VACC NO PRSV 0.5 ML IM CPT-4: 05549 04/08/2021 ADMIN INFLUENZA VIRUS VAC CPT-4: G0008 04/08/2021 TRIAMCINOLONE ACET INJ NOS 10 mg CPT-4: J3301 021 DRAIN/INJECT JOINT/BURSA CPT-4: 16003 11/17/2020 TRIAMCINOLONE ACET INJ NOS 10 mg CPT-4: J3301 021 IIV4 VACC NO PRSV 0.5 ML IM CPT-4: 09083 04/07/2020 ADMIN INFLUENZA VIRUS VAC CPT-4: G0008 04/07/2020 IIV4 VACC NO PRSV 0.5 ML IM CPT-4: 68332 04/07/2020 URINALYSIS NONAUTO W/O SCOPE CPT-4: 22831 03/16/2020 TRIAMCINOLONE ACET INJ NOS 10 mg CPT-4: J3301 020 THER/PROPH/DIAG INJ SC/IM CPT-4: 88733 03/11/2020 THER/PROPH/DIAG INJ SC/IM CPT-4: 34445 01/14/2020 ROCEPHIN, PER 250 MG CPT-4: J0696 01/14/2020 ROCEPHIN, PER 250 MG CPT-4: J0696 12/30/2019 THER/PROPH/DIAG INJ SC/IM CPT-4: 45062 12/30/2019 Vital Signs Date Vital 10/17/2022 Blood Pressure 1: 132/80 Code: 8480-6 Heart Rate 1: 96 bpm Height: 5'3" Code: 8302-2 SpO2: 96% Temperature: 36.1 (C) / 97.0 (F) 07/24/2022 Blood Pressure 1: 162/78 Code: 8480-6 BMI: 28.7 Code: 00561-7 Heart Rate 1: 89 bpm Height: 5'3" Code: 8302-2 SpO2: 100% Weight: 162 lb s Code: 32882-8 07/03/2022 Blood Pressure 1: 138/70 Code: 8480-6 Heart Rate 1: 72 bpm Height: Code: 8302-2 Respiratory Rate: 16 bpm SpO2: 95% Weight: 163 lbs Code: 17953-1 03/09/2022 Blood Pressure 1: 142/84 Code: 8480-6 BMI: 29.8 Code: 03487-7 Heart Rate 1: 87 bpm Height: 5'3" Code: 8302-2 SpO2: 98% Temperature: 3 6.3 (C) / 97.3 (F) Weight: 168 lbs Code: 41769-2 10/27/2021 Blood Pressure 1: 134/78 Code: 8480-6 BMI: 28.9 Code: 64320-7 Heart Rate 1: 88 bpm Height: 5'3" Code: 8302-2 SpO2: 97% Temperature: 3 6.1 (C) / 96.9 (F) Weight: 163 lbs Code: 91027-3 09/28/2021 Blood Pressure 1: 142/84 Code: 8480-6 BMI: 28.9 Code: 80040-4 Heart Rate 1: 67 bpm Height: 5'3" Code: 8302-2 SpO2: 96% Temperature: 3 5.9 (C) / 96.7 (F) Weight: 163 lbs Code: 18352-1 09/02/2021 Blood Pressure 1: 142/84 Code: 8480-6 BMI: 28.9 Code: 65187-6 Heart Rate 1: 95 bpm Height: 5'3" Code: 8302-2 SpO2: 99% Temperature: 3 6.3 (C) / 97.4 (F) Weight: 163 lbs Code: 79582-5 06/01/2021 Blood Pressure 1: 126/80 Code: 8480-6 BMI: 28.0 Code: 19014-1 Heart Rate 1: 84 bpm Height: 5'3" Code: 8302-2 SpO2: 96% Temperature: 3 6.2 (C) / 97.1 (F) Weight: 158 lbs Code: 47093-4 05/18/2021 Blood Pressure 1: 152/76 Code: 8480-6 Heart Rate 1: 68 bpm Height: Code: 8302-2 Temperature: 36.3 (C) / 97.3 (F) Weight: Code: 19512- 7 03/03/2021 Blood Pressure 1: 132/80 Code: 8480-6 Heart Rate 1: 88 bpm Height: Code: 8302-2 Weight: Code: 41474-1 02/01/2021 Blood Pressure 1: 146/82 Code: 8480-6 Heart Rate 1: 84 bpm Height: 5'3" Code: 8302-2 Respiratory Rate: 16 bpm SpO2: 98% Temperature: 36 .2 (C) / 97.2 (F) Weight: Code: 06851-0 11/17/2020 Blood Pressure 1: 140/80 Code: 8480-6 Heart Rate 1: 72 bpm Height: 5'3" Code: 8302-2 SpO2: 100% Temperature: 36.1 (C) / 97.0 (F) Weight: Code: 72510-5 10/29/2020 Blood Pressure 1: 126/74 Code: 8480-6 BMI: 28.7 Code: 92754-2 Heart Rate 1: 86 bpm Height: 5'3" Code: 8302-2 SpO2: 99% Temperature: 3 6.3 (C) / 97.3 (F) Weight: 162 lbs Code: 30379-7 09/22/2020 Blood Pressure 1: 138/72 Code: 8480-6 BMI: 28.9 Code: 52185-4 Heart Rate 1: 74 bpm Height: 5'3" Code: 8302-2 Temperature: 35.9 (C) / 96.7 (F) Weight: 163 lbs Code: 26605-9 08/20/2020 Blood Pressure 1: 148/80 Code: 8480-6 BMI: 28.2 Code: 18692-7 Heart Rate 1: 94 bpm Height: 5'3" Code: 8302-2 SpO2: 95% Temperature: 3 6.3 (C) / 97.3 (F) Weight: 159 lbs Code: 30501-9 07/22/2020 Blood Pressure 1: 160/80 Code: 8480-6 Bl ood Pressure 1: 142/76 Code: 8480-6 BMI: 27.8 Code: 91553-0 Heart Rate 1: 84 bpm Height: 5'3" Code: 8302-2 Respiratory Rate: 18 bpm SpO2: 97% Temperature: 36.4 (C) / 97.5 (F) We ight: 157 lbs Code: 58636-2 07/16/2020 Blood Pressure 1: 140/78 Code: 8480-6 BMI: 27.8 Code: 37579-1 Heart Rate 1: 86 bpm Height: 5'3" Code: 8302-2 SpO2: 97% Temperature: 3 6.3 (C) / 97.3 (F) Weight: 157 lbs Code: 67015-3 06/22/2020 Blood Pressure 1: 162/84 Code: 8480-6 BMI: 27.8 Code: 68347-6 Heart Rate 1: 93 bpm Height: 5'3" Code: 8302-2 Respiratory Rate: 16 bpm SpO2: 100% Temperature: 36.2 (C) / 97.1 (F) Weight: 157 lbs Code: 05197-0 05/24/2020 Height: Code: 8302-2 Weight: Code: 294 63-7 04/05/2020 Blood Pressure 1: 132/74 Code: 8480-6 BMI: 26.9 Code: 95576-0 Heart Rate 1: 74 bpm Height: 5'3" Code: 8302-2 Weight: 152 lbs Code: 07101 -7 03/22/2020 Height: Code: 8302-2 Weight: Code: 294 6303/16/2020 Height: Code: 8302-2 Weight: Code: 294 6303/15/2020 Blood Pressure 1: 140/76 Code: 8480-6 Heart Rate 1: 82 bpm Height: 5'3" Code: 8302-2 SpO2: 97% Temperature: 37.2 (C) / 99.0 (F) 03/11/2020 BMI: 26.9 Code: 53803-1 Heart Rate 1: 80 bpm Hei ght: 5'3" Code: 8302-2 Weight: 152 lbs Code: 17476-7 02/17/2020 Blood Pressure 1: 134/72 Code: 8480-6 BMI: 27.3 Code: 23535-0 Heart Rate 1: 84 bpm Height: 5'3" Code: 8302-2 Respiratory Rate: 16 bpm SpO2: 96% Temperature: 36.2 (C) / 97.1 (F) Weight: 154 lbs Code: 74775-5 01/14/2020 Blood Pressure 1: 122/74 Code: 8480-6 Heart Rate 1: 87 bpm Height: Code: 8302-2 SpO2: 99% Temperature: 36.4 (C) / 97.6 (F) Weight: Code: 08656-7 12/30/2019 Height: Code: 8302-2 Weight: Code: 294 63-7 12/02/2019 Blood Pressure 1: 148/86 Code: 8480-6 BMI: 27.3 Code: 19386-0 Heart Rate 1: 96 bpm Height: 5'3" Code: 8302-2 SpO2: 98% Temperature: 3 7.2 (C) / 98.9 (F) Weight: 154 lbs Code: 19259-2 11/06/2019 Blood Pressure 1: 146/78 Code: 8480-6 BMI: 27.3 Code: 27733-1 Heart Rate 1: 94 bpm Height: 5'3" Code: 8302-2 SpO2: 98% Temperature: 3 6.3 (C) / 97.3 (F) Weight: 154 lbs Code: 55619-3 Functional Status No Functional Status data Reason For Visit Reason For Visit Effective Dates Notes back pain 10/17/2022 Annual Medicare Wellness Exam [...] Encounter Performer Location Location Address Codes Date ([id number]) 25448 EST. PATIENT, LEVEL III Diagnosis: Compression fracture of L3 vertebra, initial encounter[ICD10: S32.030A] Diagnosis: Compression fracture of L5 vertebra, initial encounter[ICD10: S32.050A] Aar Demarco MD, [facility] [address] [place] [address] CPT-4: 83288 10/17/2022 ([id number]) 91419 EST. PATIENT, LEVEL III Diagnosis: Essential (primary) hypertension[ICD10: I10] Rubina Demarco MD, [facility] [address] [place] [address] CPT-4: 9921 3 07/03/2022 ([id number]) 33424 EST. PATIENT, LEVEL IV Diagnosis: Essential (primary) hypertension[ICD10: I10] Diagnosis: Dysuria[ICD10: R30.0] Diagnosis: Urinary tract infection[ICD10: N39.0] Rubina Demarco MD, [facility] [address] [place] [address] CPT-4: 9921 4 03/09/2022 ([id number]) 36257 EST. PATIENT, LEVEL I Diagnosis: Urinary tract infection[ICD10: N39.0] Rubina Demarco MD, [facility] [address] [place] [address] CPT-4: 9921 1 12/02/2021 ([id number]) 03914 EST. PATIENT, LEVEL IV Diagnosis: Essential (primary) hypertension[ICD10: I10] Diagnosis: Non-traumatic compression fracture of L5 lumbar vertebra with routine healing, subsequent encounter[ICD10: M48.56XD] Diagnosis: Other chronic pain[ICD10: G89.29] Diagnosis: Dysuria[ICD10: R30.0] Diagnosis: Urinary tract infection[ICD10: N39.0] Rubina Demarco MD, [facility] [address] [place] [address] CPT-4: 9921 4 10/27/2021 ([id number]) 35866 EST. PATIENT, LEVEL IV Diagnosis: Essential (primary) hypertension[ICD10: I10] Diagnosis: Chronic back pain[ICD10: M54.9] Diagnosis: Nontraumatic compression fracture of L5 vertebra, initial encounter[ICD10: M48.56XA] Rubina Demarco MD, [facility] [address] [place] [address] CPT-4: 89657 09/28/2021 ([id number]) 85729 EST. PATIENT, LEVEL III Diagnosis: Other allergic rhinitis[ICD10: J30.89] Ara Stewart MD, [facility] [address] [place] [address] CPT-4: 9921 3 09/02/2021 ([id number]) 28942 EST. PATIENT, LEVEL IV Diagnosis: Essential (primary) hypertension[ICD10: I10] Diagnosis: Other chronic pain[ICD10: G89.29] Diagnosis: Chronic idiopathic constipation[ICD10: K59.04] Diagnosis: Hyponatremia[ICD10: E87.1] Rubina Demarco MD, [facility] [address] [place] [address] CPT-4: 44327 06/01/2021 ([id number]) 40806 EST. PATIENT, LEVEL IV Diagnosis: Essential (primary) hypertension[ICD10: I10] Diagnosis: Age-related osteoporosis without current pathological fracture[ICD10: M81.0] Diagnosis: Dysuria[ICD10: R30.0] Diagnosis: Oral candidiasis[ICD10: B37.0] Whitney Demarco MD, [facility] [address] [place] [address] CPT-4: 75094 05/18 ([id number]) Miscellaneous no charge Diagnosis: Laceration of right lower leg[ICD10: S81.811A] Rubina Demarco MD, [facility] [address] [place] [address] CPT-4: 9999 9 03/11/2021 ([id number]) 31091 EST. PATIENT, LEVEL I Diagnosis: Laceration of left lower leg[ICD10: S81.812A] Diagnosis: Laceration of right lower leg[ICD10: S81.811A] Rubina Demarco MD, [facility] [address] [place] [address] CPT-4: 9921 1 03/04/2021 ([id number]) 89036 EST. PATIENT, LEVEL III Diagnosis: Laceration of right lower leg[ICD10: S81.811A] Diagnosis: Laceration of left lower leg[ICD10: S81.812A] Ara Demarco MD, [facility] [address] [place] [address] CPT-4: 9921 3 03/03/2021 ([id number]) 81566 EST. PATIENT, LEVEL IV Diagnosis: Essential (primary) hypertension[ICD10: I10] Diagnosis: Low back pain[ICD10: M54.5] Diagnosis: Chronic back pain[ICD10: M54.9] Rubina wills MD, [facility] [address] [place] [address] CPT-4: 9921 4 02/01/2021 91001 EST. PATIENT, LEVEL III Diagnosis: Pain of right sacroiliac joint[ICD10: M53.3] Diagnosis: Chronic back pain[ICD10: M54.9] Samara Demarco MD , [facility] [address] [place] [address] CPT-4: 57325 11/17 ([id number]) 60776 EST. PATIENT, LEVEL III Diagnosis: Pain of left sacroiliac joint[ICD10: M53.3] Diagnosis: Low back pain[ICD10: M54.5] Diagnosis: Nicotine dependence, cigarettes, uncomplicated[ICD10: F17.210] Ara Demarco MD, [facility] [address] [place] [address] CPT-4: 21590 10/29/2020 ([id number]) 55881 EST. PATIENT, LEVEL IV Diagnosis: Essential (primary) hypertension[ICD10: I10] Diagnosis: Weakness[ICD10: R53.1] Diagnosis: Generalized osteoarthritis[ICD10: M15.9] Diagnosis: Fibromyalgia[ICD10: M79.7] Rubina Demarco MD, [facility] [address] [place] [address] CPT-4: 92639 09/22/2020 ([id number]) 97971 EST. PATIENT, LEVEL III Diagnosis: Essential (primary) hypertension[ICD10: I10] Ara Demarco MD, [facility] [address] [place] [address] CPT-4: 9921 3 08/20/2020 ([id number]) 39056 EST. PATIENT, LEVEL III Diagnosis: Essential (primary) hypertension[ICD10: I10] Rubina Demarco MD, [facility] [address] [place] [address] CPT-4: 9921 3 07/22/2020 ([id number]) 21187 EST. PATIENT, LEVEL III Diagnosis: Dysuria[ICD10: R30.0] Diagnosis: Benign paroxysmal positional vertigo, bilateral[ICD10: H81.13] Ara Demarco MD, [facility] [address] [place] [address] CPT-4: 71693 07/16/2020 ([id number]) 46284 EST. PATIENT, LEVEL IV Diagnosis: Essential (primary) hypertension[ICD10: I10] Diagnosis: Chronic back pain[ICD10: M54.9] Diagnosis: Weakness[ICD10: R53.1] Diagnosis: Fibromyalgia[ICD10: M79.7] Diagnosis: Generalized osteoarthritis[ICD10: M15.9] Diagnosis: Breast pain, left[ICD10: N64.4] Rubina wills MD, [facility] [address] [place] [address] CPT-4: 9921 4 06/22/2020 ([id number]) 06750 EST. PATIENT, LEVEL III Diagnosis: Cough[ICD10: R05] Diagnosis: Acute recurrent maxillary sinusitis[ICD10: J01.01] Ara Boland [facility] [address] [place] [address] CPT-4: 9921 3 05/24/2020 38029 EST. PATIENT, LEVEL III Diagnosis: Benign paroxysmal positional vertigo, bilateral[ICD10: H81.13] Diagnosis: Weakness[ICD10: R53.1] Diagnosis: Imbalance[ICD10: R26.89] Diagnosis: Frequent falls[ICD10: R29.6] Samara Demarco MD, [facility] [address] [place] [address] CPT-4: 77026 04/05/2020 81835 EST. PATIENT, LEVEL III Diagnosis: Skin tear of right forearm without complication, subsequent encounter[ICD10: S51.811D] Diagnosis: Other allergic rhinitis[ICD10: J30.89] Diagnosis: Rib pain on left side[ICD10: R07.81] Samara Demarco MD, [facility] [address] [place] [address] CPT-4: 9921 3 03/22/2020 76742 EST. PATIENT, LEVEL II Diagnosis: Skin tear of right forearm without complication, subsequent encounter[ICD10: S51.811D] Diagnosis: Dysuria[ICD10: R30.0] Samara Demarco MD, [facility] [address] [place] [address] CPT-4: 34806 03/16/2020 25906 EST. PATIENT, LEVEL III Diagnosis: Right shoulder pain[ICD10: M25.511] Diagnosis: Right knee pain[ICD10: m25.561] Diagnosis: Skin tear of right forearm without complication[ICD10: S51.811A] Samara Demarco MD, [facility] [address] [place] [address] CPT-4: 79623 03/15/2020 06656 EST. PATIENT, LEVEL IV Diagnosis: Other acute sinusitis[ICD10: J01.80] Diagnosis: Other allergic rhinitis[ICD10: J30.89] Diagnosis: Right knee pain[ICD10: m25.561] Samara Demarco MD , [facility] [address] [place] [address] CPT-4: 13285 03/11 ([id number]) 13970 EST. PATIENT, LEVEL IV Diagnosis: Gastro-esophageal reflux disease without esophagitis[ICD10: K21.9] Diagnosis: Age-related osteoporosis without current pathological fracture[ICD10: M81.0] Diagnosis: Chronic back pain[ICD10: M54.9] Rubina wills MD, [facility] [address] [place] [address] CPT-4: 9921 4 02/17/2020 23015 EST. PATIENT, LEVEL III Diagnosis: Dysuria[ICD10: R30.0] Diagnosis: Hematuria[ICD10: R31.9] [facility] [address] [place] [address] CPT-4: 31815 01/14/2020 58452 EST. PATIENT, LEVEL III Diagnosis: Dysuria[ICD10: R30.0] Diagnosis: Other allergic rhinitis[ICD10: J30.89] Samara Stewart MD, [facility] [address] [place] [address] CPT-4: 9921 3 12/30/2019 44047 EST. PATIENT, LEVEL IV Diagnosis: Other acute sinusitis[ICD10: J01.80] Diagnosis: Other allergic rhinitis[ICD10: J30.89] Diagnosis: Cough[ICD10: R05] Samara Demarco MD, [facility] [address] [place] [address] CPT-4: 89052 12/02/2019 ([id number]) OFFICE VISIT, NEW - LEVEL 4 Diagnosis: Age-related osteoporosis without current pathological fracture[ICD10: M81.0] Diagnosis: Nasal sinus congestion[ICD10: R09.81] Diagnosis: Other chronic pain[ICD10: G89.29] Diagnosis: Chronic back pain[ICD10: M54.9] Diagnosis: Gastro-esophageal reflux disease without esophagitis[ICD10: K21.9] Rubina Demarco MD, [facility] [address] [place] [address] CPT-4: 63160 11/06/2019 Plan of Care Planned Activity Notes Codes Status Date Visit Plan: Compression fractures of L3 and L5 - patient is interested in kyphoplasty due to increased pain - will order MRI lumbar spine and then plan to refer to [facility] for evaluation- refill percocet to use prn as directed - patient verbalized understanding of plan. 10/17/2022 Appointment: Ara Boland WPtel: [address] [place], [place] [phone] (30 min) Complex 10/17/2022 Patient Education: Patient [...] patient's DME 07/24/2022 Appointment: Ara Boland WPtel: [phone] [facility] - Annual Wellness Visit 11/2022 Patient Education: Patient Medication Summary Completed 07/24/2022 Patient Education: Smoking and Tobacco Addiction Completed 07/24/2022 Visit Plan: Back pain - chronic -pt is s alexandr post sacral nerve stimulator trial. Hypertension - [...] as well. 07/03/2022 Appointment: Rubina Demarco WPtel: [phone] (15 min) Moderate 07/03/2022 Patient Education: Patient [...] to pharmacy. 03/09/2022 Appointment: Rubina Demarco WPtel: [address] [place], [place] [phone] (30 min) [facility] 03/09/2022 Patient Education: Patient Medication Summary Completed [...] fixation needed. 09/28/2021 Appointment: Rubina Demarco WPtel: [facility] (15 min) Moderate 09/28/2021 Patient Education: Patient [...] allergy spray. 09/02/2021 Appointment: Ara Boland WPtel: [facility] [place] [phone] (30 min) Complex 09/02/2021 Patient Education: Patient [...] a week 06/01/2021 Appointment: Rubina Demarco WPtel[facility] [phone] [phone] (15 min) Moderate 06/01/2021 Patient Education: Patient [...] calcium adequate. 05/18/2021 Appointment: Whitney Shelton WPtel: [phone] [place] (30 min) Complex 05/18/2021 Patient Education: Patient Medication Summary Completed 05/18/2021 Patient Education: cephalexin- [employer] [id number] Completed 05/18/2021 Care Plan: Urine Culture Pending [...] - referr al to physical therapy at [facility] - has L1 re-fracture of previous compression fracture- 9-3- Hypertension - well controlled - continue with [...] outpatient services. 02/01/2021 Appointment: Rubina Demarco WPtel: [address] [phone] [place] (15 min) Moderate 02/01/2021 Patient Education: Patient Medication Summary Completed 02/01/2021 Patient Education: Back Pain Completed 02/01/2021 Appointment: Rubina Demarco WPtel: [phone] [phone] [place] 30 min appointments only in this slot [...] of injection. 11/17/2020 Appointment: Samara Cormier WPtel: [phone] [facility] [place] (30 min) Complex 11/17/2020 Patient Education: Patient Medication Summary Completed 11/17/2020 Visit Plan: Sacroiliitis - kenalog injec tion today - back exercises discussed with the patient, pt to continue with anti-inflammatories. Pt is to call if the symptoms do not improve or if they worsen. Tobacco use- patient is due for low dose CT scan 10/29/2020 Appointment: Ara Boland WPtel: [phone] [phone] (15 min) Moderate 10/29/2020 Patient Education: Patient [...] only. 09/22/2020 Appointment: Rubina Demarco WPtel: [phone] [phone] (15 min) Moderate 09/22/2020 Patient Education: Patient [...] acute concerns. 08/20/2020 Appointment: Ara Boland WPtel: [phone] [phone] (15 min) Moderate 08/20/2020 Patient Education: Patient Medication Summary Completed 08/20/2020 Patient Education: Hypertension Completed 08/20/2020 Appointment: Rubina Demarco WPtel: [facility]5 [phone] (30 min) Complex 08/19/2020 Visit Plan: Hypertension [...] at bedtime. 07/22/2020 Appointment: Rubina Demarco WPtel: [facility]3 [phone] (30 min) Complex 07/22/2020 Patient Education: Patient Medication Summary Completed 07/22/2020 Visit Plan: Dysuria- history of UTI- rx for cipro sent to start over the weekend if needed -culture pending BPPV - continue meclizine as needed 07/16/2020 Appointment: Ara Boland WPtel: [facility]1 [phone] (30 min) Complex 07/16/2020 Patient Education: Patient [...] [facility] because she has to stay in [place] 06/22/2020 [place] [phone] [place] [phone] (30 min) Complex 06/22/2020 Patient Education: Patient Medication Summary Completed 06/22/2020 Visit Plan: Sinusitis - Pt has acute inf ection - pain in face, maxillary region, Pt informed to use decongestant, RX given to patient, sinus rinses also recommended. Call if symptoms do not show improvement. 05/24/2020 Appointment: Ara Boland WPtel: [facility] [place] [phone] TeleHealth 05/24/2020 Patient Education: Patient Medication Summary [...] or concerns. 04/05/2020 Appointment: Samara Cormier WPtel: [facility] (30 min) Complex 04/05/2020 Patient Education: [...] or concerns. 03/22/2020 Appointment: Samara Cormier WPtel: [address] [place], [place] [phone] (15 min) Moderate 03/22/2020 Patient Education: Patient [...] warmth, discharge. 03/16/2020 Appointment: Samara Cormier WPtel: [address] [place], [place] [phone] (15 min) Moderate 03/16/2020 Patient Education: Patient [...] warmth, discharge. 03/15/2020 Appointment: Samara Cormier WPtel: [facility]3 [phone] (15 min) Moderate 03/15/2020 Patient Education: Patient [...] improve. 03/11/2020 Appointment: Samara Cormier WPtel: [phone] [phone] (30 min) Complex 03/11/2020 Patient Education: Patient [...] continue Reclast 02/17/2020 Appointment: Rubina Demarco WPtel: [phone] [phone] [place] (15 min) Moderate 02/17/2020 Patient Education: Patient Medication Summary Completed 02/17/2020 Visit Plan: Hematuria- unable to do UA - will culture 02/09/2020 Appointment: Lab Draw 02/09/2020 Patient Education: Patient Medication Summary Completed 02/09/2020 Care Plan: Urine Culture Pending Appointment: Samara Cormier WPtel: [facility]1 [phone] [place] (30 min) Complex 01/14/2020 Patient Education: Patient Medication Summary Completed 01/14/2020 Care Plan: Urine Culture Pending Appointment: Samara Cormier WPtel: [facility]0 [phone] [place] (10 min) Simple 12/30/2019 Patient Education: Patient [...] allergy spray. 12/02/2019 Appointment: Samara Cormier WPtel: [address] [place], [place] [phone] (30 min) [facility] 12/02/2019 Patient Education: Patient Medication Summary Completed [...] bisphosphonate until she is seen by the Gear Technician at [facility]. Esophageal Reflux - the patient has been [...] Education: Patient Medication Summary Completed 11/06/2019 Referral: [facility] Referral Appointment Requested Instructions Comment Date mri lumbar spine then refer to ortho [...] pain - chronic - referral to phys ical therapy at [facility] - has L1 re- fracture of previous compression fracture- 9-3-21 Hypertension - well controlled - continue with [...] 08/20/2020 increase metoprolol to 1.5 tabs at [facility]. . Hypertension - uncontrolled - the gonzález [...] bisphosphonate until she is seen by the Gear Technician at [facility]. Esophageal Reflux - the patient has been counseled against excessive intake of caffeine, spicy foods, peppermint, and cinnamon - all of which can exacerbate esophageal reflux. The patient is to take medications as prescribed and call the office if the symptoms are not improving. Sinus congestion - continue with nasal spray. Chronic back pain - advised pt to [facility] app[facility] with [facility] physicians. 11/06/2019 Medical Equipment No Medical Equipment data Health Concerns Section Health Concerns data not found Goals Section Goals data not found Interventions Section Interventions data not found Health Status Evaluations/Outcomes Section Health Status Evaluations/Outcomes data not found Advance Directives No Advance Directive data
--- OUTSIDE RECORDS SUMMARY | 2022-12-05 15:48 | XMS REPORT | CCD ---
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 Name Role Phone [facility] Unavailable CCM Unavailable Summary Purpose Interface Exchange Insurance Providers Payer name Policy type / Coverage type Covered green party ID Effective Begin Date Effective End Date WPS Medicare Part B Medicare Part B [id number] Unknown Unkno wn [facility] Medicare Part B [id number] Unknown Unknown Family history Uncle Diagnosis Age [...] Description Effective Dates Tobacco history SNOMED CT: 42000936 Current every day smoker Marital status Unknown 11/06/2019 Number of children Unknown 4 grown 11/06/2019 Employment Unknown Retired 4 years ago due to health issues 11/06/2019 Number of years using tobacco Unknown 50 Number of cigarettes/day Unknown 20 (One Pack) [address]: 975140 Currently drinks alcohol 11/05 Frequency of drinks SNOMED CT: 049913068 1drink per week 020 Allergies, Adverse Reactions, Alerts Substance Reaction Codes Entered Date Inactivated Date Status MORPHINE SULFATE rash RxNorm: 60003 11/06/2019 No Inactive Date Active * OTHER REACTION - SEE ANSWER BOX Dilaudid- itching Unknown No Inactive Date Active hydrocodone pruritis Unknown 11/06/2019 No Inactive Date Active bactrim hives, RxNorm: 718687 02/10/2020 No Inactive Date Acti ve IODINE; [...] Start Date Stop Date Status Fill Instructions polyethylene glycol 3350 17 gram/dose oral powder RxNorm: 87 6193 MIX 17 GRAMS WITH EIGHT OUNCES OF LIQUID EVERY DAY NEEDED 10/29/2022 02/25/2023 Active Pepcid 20 mg tablet RxNorm: 548359 Take 1 Tablet(s) Oral two ti mes a day 10/26/2022 11/04/2022 Active please deliver prednisone 20 mg tablet RxNorm: 627627 Take 2 Tablet(s) Oral ev anatoly day 10/26/2022 10/28/2022 Inactive Pepcid 20 mg tablet RxNorm: 442845 Take 1 Tablet(s) Oral two ti mes a day 10/26/2022 10/26/2022 Inactive please deliver pantoprazole 40 mg tablet,delayed release RxNorm: 658620 TAKE 1 TABLET BY MOUTH ONCE DAILY 10/19/2022 11/17/2022 Active This prescriptio n was filled on 09/26/2022. Any refills authorized will be placed on file. diazepam 5 mg tablet RxNorm: 460854 Take 1 Tablet(s) Oral as di rected 10/17/2022 No Stop Date Active 30 min prior to MRI - may repeat x 1 Percocet 5 mg-325 mg tablet RxNorm: 6583581 Take 1 Table t(s) Oral four times a day 10/17/2022 11/15/2022 Active calcitonin (salmon) 200 unit/actuation nasal spray RxNorm: 3 93636 INSTILL ONE SPRAY IN ONE NOSTRIL EVERY DAY ALTERNATING DAILY 10/02/2022 11/30/2022 Active estradiol 10 mcg vaginal tablet RxNorm: 924892 INSERT O NE TABLET VAGINALLY TWO TIMES PER WEEK 10/02/2022 03/18/2023 Active metoprolol succinate ER 50 mg tablet,extended release 24 hr RxNorm: 400683 Take 1 Tablet(s) Oral every day 09/17/2022 06/07/2024 Active This prescription was filled on 08/24/2022. Any refills authorized will be placed on file. naproxen 500 mg tablet RxNorm: 172743 Take 1 Tablet(s) Oral two times a day 09/17/2022 04/14/2023 Active This prescription wa s filled on 08/24/2022. Any refills authorized will be placed on file. fluticasone propionate 50 mcg/actuation nasal spray,suspensi on RxNorm: 4834548 USE TWO SPRAYS IN EACH NOSTRIL EVERY DAY 08/17/2022 12/14/2022 Active This prescription was filled on 07/25/2022. Any refills authorized will be placed on file. gabapentin 100 mg capsule RxNorm: 409313 TAKE ONE CAPSU LE BY MOUTH EVERY MORNING AND TAKE ONE CAPSULE BY MOUTH EARLY AFTERNOON 08/17/2022 01/13/2023 Ac tive This prescription was filled on 07/25/2022. Any refills authorized will be placed on file. gabapentin 300 mg capsule RxNorm: 674482 Take 1 Capsule(s) Oral at bed time 08/17/2022 01/13/2023 Active This prescription wa s filled on 07/25/2022. Any refills authorized will be placed on file. baclofen 20 mg tablet RxNorm: 208413 TAKE ONE TABLET BY MOUTH TWICE DAILY WITH FOOD OR MILK 07/25/2022 11/21/2022 Active cefdinir 300 mg capsule RxNorm: 907095 Take 1 Capsule(s) Oral t wo times a day 07/24/2022 07/30/2022 Inactive dicyclomine 20 mg tablet RxNorm: 957686 TAKE 1 TABLET B Y MOUTH THREE TIMES DAILY 07/20/2022 11/16/2022 Active This prescriptio n was filled on 06/27/2022. Any refills authorized will be placed on file. baclofen 20 mg tablet RxNorm: 578902 TAKE ONE TABLET BY MOUTH TWICE DAILY WITH FOOD OR MILK 06/27/2022 06/27/2022 Inactive calcitonin (salmon) 200 unit/actuation nasal spray RxNorm: 3 61818 INSTILL ONE SPRAY IN ONE NOSTRIL EVERY DAY ALTERNATING DAILY 06/19/2022 09/16/2022 Inactive This prescription was filled on 05/26/2022. Any refills authorized will be placed on file. baclofen 20 mg tablet RxNorm: 764637 TAKE ONE TABLET BY MOUTH TWICE DAILY WITH FOOD OR MILK 05/30/2022 05/30/2022 Inactive This prescriptio n was filled on 04/06/2021. Any refills authorized will be placed on file. pantoprazole 40 mg tablet,delayed release RxNorm: 887985 TAKE 1 TABLET BY MOUTH ONCE DAILY 05/19/2022 10/15/2022 Inactive This prescriptio n was filled on 04/26/2022. Any refills authorized will be placed on file. cephalexin 500 mg capsule RxNorm: 016086 Take 1 Capsule (s) Oral three times a day 04/25/2022 05/01/2022 Inactive cephalexin 500 mg capsule RxNorm: 681062 Take 1 Capsule (s) Oral three times a day 04/25/2022 04/25/2022 Inactive estradiol 0.01% (0.1 mg/gram) vaginal cream RxNorm: 476321 A PEA SIZE AMOUNT ACROSS URETHRAL OPENING DAILY FOR 21 DAYS THEN ON SUNDAY., SUNDAY., SUNDAY. THEREAFTER 04/20/2022 10/16/2022 Inactive This prescriptio n was filled on 03/27/2022. Any refills authorized will be placed on file. Augmentin 875 mg-125 mg tablet RxNorm: 735673 Take 1 Ta blet(s) Oral two times a day 03/28/2022 04/01/2022 Inactive dicyclomine 20 mg tablet RxNorm: 109845 TAKE 1 TABLET B Y MOUTH THREE TIMES DAILY 03/20/2022 03/20/2022 Inactive This prescriptio n was filled on 02/23/2022. Any refills authorized will be placed on file. gabapentin 100 mg capsule RxNorm: 611946 TAKE ONE CAPSU LE BY MOUTH EVERY MORNING AND TAKE ONE CAPSULE BY MOUTH EARLY AFTERNOON 03/20/2022 08/16/2022 In active This prescription was filled on 02/23/2022. Any refills authorized will be placed on file. montelukast 10 mg tablet RxNorm: 413505 Take 1 Tablet(s) Oral a t bed time 03/20/2022 05/30/2022 Inactive This prescription wa s filled on 02/23/2022. Any refills authorized will be placed on file. gabapentin 300 mg capsule RxNorm: 636902 Take 1 Capsule(s) Oral at bed time 03/20/2022 08/16/2022 Inactive This prescription wa s filled on 02/23/2022. Any refills authorized will be placed on file. calcitonin (salmon) 200 unit/actuation nasal spray RxNorm: 3 85541 INSTILL ONE SPRAY IN ONE NOSTRIL EVERY DAY ALTERNATING DAILY 03/20/2022 06/17/2022 Inactive This prescription was filled on 02/23/2022. Any refills authorized will be placed on file. ceftriaxone 500 mg solution for injection RxNorm: 3203259 Take I njection 03/15/2022 03/15/2022 Inactive ceftriaxone 500 mg solution for injection RxNorm: 5062174 Take I njection 03/14/2022 03/14/2022 Inactive ceftriaxone 500 mg solution for injection RxNorm: 2155500 Take I njection 03/13/2022 03/13/2022 Inactive ceftriaxone 500 mg solution for injection RxNorm: 8266252 Take I njection 03/10/2022 03/10/2022 Inactive amoxicillin 875 mg-potassium clavulanate 125 mg tablet RxNor m: 584432 Take 1 Tablet(s) Oral two times a day 03/09/2022 03/13/2022 Inactive ceftriaxone 500 mg solution for injection RxNorm: 4417345 Take I njection 03/09/2022 03/09/2022 Inactive estradiol 10 mcg vaginal tablet RxNorm: 954760 INSERT O NE TABLET VAGINALLY TWO TIMES PER WEEK 03/07/2022 08/21/2022 Inactive This prescriptio n was filled on 12/20/2021. Any refills authorized will be placed on file. cephalexin 500 mg capsule RxNorm: 188098 Take 1 Capsule (s) Oral three times a day 02/24/2022 03/02/2022 Inactive metoprolol succinate ER 50 mg tablet,extended release 24 hr RxNorm: 690694 Take 1 Tablet(s) Oral every day 02/20/2022 02/20/2022 Inactive This prescription was filled on 01/26/2022. Any refills authorized will be placed on file. naproxen 500 mg tablet RxNorm: 822738 Take 1 Tablet(s) Oral two times a day 02/20/2022 02/20/2022 Inactive This prescription wa s filled on 01/26/2022. Any refills authorized will be placed on file. fluticasone propionate 50 mcg/actuation nasal spray,suspensi on RxNorm: 2892181 USE TWO SPRAYS IN EACH NOSTRIL EVERY DAY 02/05/2022 06/04/2022 Inactiv e calcitonin (salmon) 200 unit/actuation nasal spray RxNorm: 3 25392 INSTILL ONE SPRAY IN ONE NOSTRIL EVERY DAY ALTERNATING DAILY 2021 2021 Inactive pantoprazole 40 mg tablet,delayed release RxNorm: 457510 TAKE 1 TABLET BY MOUTH ONCE DAILY 12/21/2021 12/21/2021 Inactive This prescriptio n was filled on 11/28/2021. Any refills authorized will be placed on file. Cipro 500 mg tablet RxNorm: 277433 Take 1 Tablet(s) Oral two ti mes a day 12/09/2021 12/15/2021 Inactive Pyridium 200 mg tablet RxNorm: 4744736 Take 1 Tablet(s) Oral three times a day as needed 12/02/2021 No Stop Date Active cephalexin 500 mg capsule RxNorm: 379544 Take 1 Capsule (s) Oral three times a day 12/02/2021 12/08/2021 Inactive levocetirizine 5 mg tablet RxNorm: 737299 Take 1 Tablet(s) Oral every day 11/28/2021 11/22/2022 Active dicyclomine 20 mg tablet RxNorm: 127339 TAKE 1 TABLET B Y MOUTH THREE TIMES DAILY 11/20/2021 11/20/2021 Inactive This prescriptio n was filled on 10/28/2021. Any refills authorized will be placed on file. calcitonin (salmon) 200 unit/actuation nasal spray RxNorm: 3 06515 INSTILL ONE SPRAY IN ONE NOSTRIL EVERY DAY ALTERNATING DAILY 11/20/2021 12/19/2021 Inactive This prescription was filled on 10/28/2021. Any refills authorized will be placed on file. celecoxib 200 mg capsule RxNorm: 375175 Take 1 Capsule(s) Oral two times a day 11/02/2021 05/02/2022 Inactive estradiol 0.01% (0.1 mg/gram) vaginal cream RxNorm: 829970 A PEA SIZE AMOUNT ACROSS URETHRAL OPENING DAILY FOR 21 DAYS THEN ON SUNDAY., SUNDAY., SUNDAY. THEREAFTER 10/28/2021 10/28/2021 Inactive cephalexin 500 mg tablet RxNorm: 919113 Take 1 Tablet(s) Oral t hree times a day 10/27/2021 11/02/2021 Inactive ceftriaxone 500 mg solution for injection RxNorm: 0860642 Take I njection 10/27/2021 10/27/2021 Inactive naproxen 500 mg tablet RxNorm: 178106 Take 1 Tablet(s) Oral two times a day 10/24/2021 10/24/2021 Inactive This prescription wa s filled on 09/28/2021. Any refills authorized will be placed on file. gabapentin 100 mg capsule RxNorm: 864930 TAKE ONE CAPSU LE BY MOUTH EVERY MORNING AND TAKE ONE CAPSULE BY MOUTH EARLY AFTERNOON 10/24/2021 10/24/2021 In active This prescription was filled on 09/28/2021. Any refills authorized will be placed on file. gabapentin 300 mg capsule RxNorm: 796475 Take 1 Capsule(s) Oral at bed time 10/24/2021 10/24/2021 Inactive This prescription wa s filled on 09/28/2021. Any refills authorized will be placed on file. Prolia 60 mg/mL subcutaneous syringe RxNorm: 310183 1 M illiliter(s) Subcutaneous as doctor directed every 6 months 10/17/2021 No Stop Date Active Percocet 5 mg-325 mg tablet RxNorm: 7703747 Take 1 Table t(s) Oral four times a day 09/30/2021 10/29/2021 Inactive calcitonin (salmon) 200 unit/actuation nasal spray RxNorm: 3 06733 Take 1 Sherman Nasal every day one spray in one nostril every day - alternate nostrils daily 09/28/2021 09/28/2021 Inactive Percocet 5 mg-325 mg tablet RxNorm: 6413506 Take 1 Table t(s) Oral Every 6 hrs as needed 09/22/2021 09/22/2021 Inactive Percocet 5 mg-325 mg tablet RxNorm: 2278067 Take 1 Table t(s) Oral Every 6 hrs as needed 09/22/2021 09/22/2021 Inactive estradiol 10 mcg vaginal tablet RxNorm: 266544 INSERT O NE TABLET VAGINALLY TWO TIMES PER WEEK 09/19/2021 03/05/2022 Inactive baclofen 20 mg tablet RxNorm: 487292 TAKE ONE TABLET BY MOUTH TWICE DAILY WITH FOOD OR MILK 08/08/2021 11/05/2021 Inactive This prescriptio n was filled on 04/06/2021. Any refills authorized will be placed on file. dicyclomine 20 mg tablet RxNorm: 690290 TAKE 1 TABLET B Y MOUTH THREE TIMES DAILY 07/25/2021 07/25/2021 Inactive This prescriptio n was filled on 06/30/2021. Any refills authorized will be placed on file. pantoprazole 40 mg tablet,delayed release RxNorm: 473403 TAKE 1 TABLET BY MOUTH ONCE DAILY 07/25/2021 07/25/2021 Inactive This prescriptio n was filled on 06/30/2021. Any refills authorized will be placed on file. metoprolol succinate ER 50 mg tablet,extended release 24 hr RxNorm: 978617 Take 1 Tablet(s) Oral every day 07/25/2021 07/25/2021 Inactive This prescription was filled on 06/30/2021. Any refills authorized will be placed on file. naproxen 500 mg tablet RxNorm: 601292 Take 1 Tablet(s) Oral two times a day 06/23/2021 10/20/2021 Inactive This prescription wa s filled on 05/31/2021. Any refills authorized will be placed on file. gabapentin 100 mg capsule RxNorm: 643797 Take 1 Capsule (s) Oral as directed 1 tab AM, 1 tab early afternoon, and 3 tab hs 06/01/2021 06/01/2021 Inac tive dicyclomine 20 mg tablet RxNorm: 050585 TAKE 1 TABLET B Y MOUTH THREE TIMES DAILY 05/31/2021 05/31/2021 Inactive cephalexin 500 mg tablet RxNorm: 839589 Take 1 Tablet(s) Oral t wo times a day 05/18/2021 05/24/2021 Inactive Diflucan 150 mg tablet RxNorm: 842216 Take 1 Tablet(s) Oral shoshana ry day 05/18/2021 05/24/2021 Inactive baclofen 20 mg tablet RxNorm: 438624 TAKE ONE TABLET BY MOUTH TWICE DAILY WITH FOOD OR MILK 04/29/2021 06/27/2021 Inactive This prescriptio n was filled on 04/06/2021. Any refills authorized will be placed on file. Tylenol Extra Strength 500 mg tablet RxNorm: 139127 2 T ablet(s) Oral three times a day 04/14/2021 No Stop Date Active montelukast 10 mg tablet RxNorm: 333924 TAKE 1 TABLET BY MOUTH AT BEDTIME 03/15/2021 05/25/2021 Inactive Singulair 10 mg tablet RxNorm: 247207 TAKE 1 TABLET BY MOUTH AT BEDTIME 03/14/2021 04/12/2021 Inactive Diflucan 150 mg tablet RxNorm: 426117 Take 1 Tablet(s) Oral shoshana ry day 03/11/2021 03/13/2021 Inactive Diflucan 150 mg tablet RxNorm: 923346 Take 1 Tablet(s) Oral shoshana ry day 03/11/2021 03/11/2021 Inactive baclofen 20 mg tablet RxNorm: 700435 TAKE ONE TABLET BY MOUTH TWICE DAILY WITH FOOD OR MILK 03/07/2021 03/07/2021 Inactive This prescriptio n was filled on 02/10/2021. Any refills authorized will be placed on file. fluticasone propionate 50 mcg/actuation nasal spray,suspensi on RxNorm: 1196968 USE TWO SPRAYS IN EACH NOSTRIL EVERY DAY 03/07/2021 07/04/2021 Inactiv e This prescription was filled on 02/10/2021. Any refills authorized will be placed on file. naproxen 500 mg tablet RxNorm: 917874 Take 1 Tablet(s) Oral two times a day 03/07/2021 03/07/2021 Inactive This prescription wa s filled on 02/10/2021. Any refills authorized will be placed on file. Augmentin 875 mg-125 mg tablet RxNorm: 931864 1 Tablet(s) Oral two times a day 02/18/2021 02/18/2021 Inactive Augmentin 875 mg-125 mg tablet RxNorm: 377447 1 Tablet(s) Oral two times a day 02/18/2021 02/24/2021 Inactive Keflex 500 mg capsule RxNorm: 710145 1 Capsule(s) Oral three ti mes a day 02/14/2021 02/17/2021 Inactive pantoprazole 40 mg tablet,delayed release RxNorm: 974643 TAKE 1 TABLET BY MOUTH ONCE DAILY 02/04/2021 07/03/2021 Inactive This prescriptio n was filled on 01/12/2021. Any refills authorized will be placed on file. gabapentin 400 mg capsule RxNorm: 396886 1 Capsule(s) Oral at b ed time 02/01/2021 05/01/2021 Inactive Vitamin D3 125 mcg (5,000 unit) tablet RxNorm: 641566 1 Tablet(s) Oral every day 01/25/2021 No Stop Date Active baclofen 20 mg tablet RxNorm: 902913 TAKE ONE TABLET BY MOUTH TWICE DAILY WITH FOOD OR MILK 01/05/2021 03/05/2021 Inactive This prescriptio n was filled on 12/13/2020. Any refills authorized will be placed on file. Colace 100 mg capsule RxNorm: 2029033 1 Capsule(s) Oral every day 0 01/03/2021 02/01/2021 Inactive Miralax 17 gram/dose oral powder RxNorm: 177242 17 Gram (s) Oral every day as needed 01/03/2021 01/03/2021 Inactive Colace 100 mg capsule RxNorm: 9609596 1 Capsule(s) Oral every day 0 01/03/2021 01/03/2021 Inactive Keflex 500 mg capsule RxNorm: 181475 1 Capsule(s) Oral three ti mes a day 12/22/2020 12/28/2020 Inactive gabapentin 300 mg capsule RxNorm: 760285 1 Capsule(s) Oral at b ed time 12/17/2020 01/15/2021 Inactive gabapentin 300 mg capsule RxNorm: 590782 1 Capsule(s) Oral at b ed time 12/17/2020 12/17/2020 Inactive prednisone 20 mg tablet RxNorm: 998105 2 Tablet(s) Oral every day 0 11/30/2020 11/29/2020 Inactive prednisone 20 mg tablet RxNorm: 345583 2 Tablet(s) Oral every day 0 11/30/2020 12/05/2020 Inactive Kenalog 40 mg/mL suspension for injection RxNorm: 9234605 1 Milliliter(s) Injection 11/23/2020 11/23/2020 Inactive Tessalon Perles 100 mg capsule RxNorm: 012318 2 Capsule (s) Oral three times a day as needed cough 11/19/2020 No Stop Date Active Augmentin 500 mg-125 mg tablet RxNorm: 104444 1 Tablet( s) Oral three times a day 11/17/2020 11/24/2020 Inactive Xyzal 5 mg tablet RxNorm: 018176 TAKE 1 TABLET BY MOUTH DAILY 11/1111/05/2021 Inactive naproxen 500 mg tablet RxNorm: 052416 1 Tablet(s) Oral two time s a day 11/08/2020 11/08/2020 Inactive baclofen 20 mg tablet RxNorm: 864162 TAKE ONE TABLET BY MOUTH TWICE DAILY WITH FOOD OR MILK 11/04/2020 01/02/2021 Inactive Kenalog 40 mg/mL suspension for injection RxNorm: 6813757 Milliliter(s) Injection 10/29/2020 10/29/2020 Inactive Flonase Allergy Relief 50 mcg/actuation nasal spray,suspensi on RxNorm: 1602736 2 Sherman Nasal every day 10/27/2020 02/23/2021 Inactive baclofen 20 mg tablet RxNorm: 406668 TAKE 1 TABLET BY M OUTH TWICE DAILY WITH FOOD OR MILK 09/27/2020 10/26/2020 Inactive Flonase Allergy Relief 50 mcg/actuation nasal spray,suspensi on RxNorm: 0871225 2 Sherman Nasal every day 09/06/2020 10/26/2020 Inactive Flonase Allergy Relief 50 mcg/actuation nasal spray,suspensi on RxNorm: 5801402 2 Sherman Nasal every day 08/30/2020 09/05/2020 Inactive pantoprazole 40 mg tablet,delayed release RxNorm: 185517 TAKE 1 TABLET BY MOUTH ONCE DAILY 08/30/2020 08/30/2020 Inactive Xyzal 5 mg tablet RxNorm: 972997 TAKE 1 TABLET BY MOUTH DAILY 08/2011/10/2020 Inactive metoprolol succinate ER 50 mg tablet,extended release 24 hr RxNorm: 018992 1 Tablet(s) Oral every day 08/20/2020 08/20/2020 Inactive Xyzal 5 mg tablet RxNorm: 037397 TAKE 1 TABLET BY MOUTH DAILY 08/2008/19/2020 Inactive dicyclomine 20 mg tablet RxNorm: 116164 TAKE 1 TABLET B Y MOUTH THREE TIMES DAILY 07/29/2020 07/29/2020 Inactive This prescriptio n was filled on 07/06/2020. Any refills authorized will be placed on file. metoprolol succinate ER 25 mg tablet,extended release 24 hr RxNorm: 103024 1.5 Tablet(s) Oral every day 07/22/2020 08/19/2020 Inactive Cipro 500 mg tablet RxNorm: 844310 1 Tablet(s) Oral two times a day 07/16/2020 07/23/2020 Inactive baclofen 20 mg tablet RxNorm: 948588 TAKE 1 TABLET BY M OUTH TWICE DAILY WITH FOOD OR MILK 07/14/2020 09/12/2020 Inactive Vagifem 10 mcg vaginal tablet RxNorm: 306371 INSERT 1 TABLET TW O TIMES A WEEKPV 07/14/2020 12/29/2020 Inactive Vagifem 10 mcg vaginal tablet RxNorm: 132834 INSERT 1 TABLET TW O TIMES A WEEKPV 07/07/2020 07/13/2020 Inactive baclofen 20 mg tablet RxNorm: 431526 TAKE 1 TABLET BY M OUTH TWICE DAILY WITH FOOD OR MILK 06/30/2020 07/13/2020 Inactive tramadol 50 mg tablet RxNorm: 303513 Tablet(s) Oral dr quirino sneed 06/22/2020 No Stop Date Active estradiol 1 mg tablet RxNorm: 664907 1 Tablet(s) Oral every day 10/202006/17/2021 Inactive naproxen 500 mg tablet RxNorm: 966905 1 Tablet(s) Oral two time s a day 06/22/2020 11/07/2020 Inactive metoprolol succinate ER 25 mg tablet,extended release 24 hr RxNorm: 831094 1 Tablet(s) Oral every day 06/22/2020 07/21/2020 Inactive naproxen 500 mg tablet RxNorm: 259452 1 Tablet(s) Oral two time s a day 06/16/2020 06/21/2020 Inactive Flonase Allergy Relief 50 mcg/actuation nasal spray,suspensi on RxNorm: 3224568 2 Sherman Nasal every day 05/31/2020 08/28/2020 Inactive dicyclomine 20 mg tablet RxNorm: 727227 TAKE 1 TABLET B Y MOUTH THREE TIMES DAILY 05/31/2020 07/28/2020 Inactive This prescriptio n was filled on 05/06/2020. Any refills authorized will be placed on file. prednisone 20 mg tablet RxNorm: 420800 2 Tablet(s) Oral every day 1 07/28/2019 05/26/2020 Inactive prednisone 20 mg tablet RxNorm: 341592 2 Tablet(s) Oral every day 1 07/28/2019 06/01/2020 Inactive Keflex 500 mg capsule RxNorm: 821576 1 Capsule(s) Oral three ti mes a day 05/24/2020 05/31/2020 Inactive naproxen 500 mg tablet RxNorm: 443908 1 Tablet(s) Oral two time s a day 05/10/2020 05/14/2020 Inactive dicyclomine 20 mg tablet RxNorm: 279005 TAKE 1 TABLET B Y MOUTH THREE TIMES DAILY 04/07/2020 05/30/2020 Inactive Singulair 10 mg tablet RxNorm: 320178 TAKE 1 TABLET BY MOUTH AT BEDTIME 04/07/2020 04/07/2020 Inactive meclizine 25 mg tablet RxNorm: 604364 1 Tablet(s) Oral three times a day as needed Dizziness 04/05/2020 No Stop Date Active Tessalon Perles 100 mg capsule RxNorm: 986070 2 Capsule (s) Oral three times a day as needed cough 03/22/2020 04/05/2020 Inactive Xyzal 5 mg tablet RxNorm: 635956 1 Tablet(s) Oral every day 020 07/20/2020 Inactive prednisone 20 mg tablet RxNorm: 417350 2 Tablet(s) Oral every day 1 03/26/2020 Inactive naproxen 500 mg tablet RxNorm: 432909 1 Tablet(s) Oral two time s a day 03/17/2020 03/22/2020 Inactive mupirocin 2 % topical ointment RxNorm: 685508 1 Application Top ical as directed 03/15/2020 04/05/2020 Inactive naproxen 500 mg tablet RxNorm: 465073 1 Tablet(s) Oral two time s a day 03/11/2020 03/16/2020 Inactive Kenalog 40 mg/mL suspension for injection RxNorm: 9607890 1 Milliliter(s) Injection 03/11/2020 03/11/2020 Inactive Zithromax Z-David 250 mg tablet RxNorm: 752883 Tablet(s) Oral as directed 03/11/2020 04/05/2020 Inactive baclofen 20 mg tablet RxNorm: 949433 TAKE 1 TABLET BY M OUT TWICE DAILY WITH FOOD OR MILK 03/09/2020 06/29/2020 Inactive Toviaz 4 mg tablet,extended release RxNorm: 817196 1 Tablet(s) Oral every day 02/17/2020 04/05/2020 Inactive Toviaz 4 mg tablet,extended release RxNorm: 232459 1 Tablet(s) Oral every day 02/17/2020 09/14/2020 Inactive dicyclomine 20 mg tablet RxNorm: 785339 1 Tablet(s) Oral three times a day 02/13/2020 04/06/2020 Inactive Flonase Allergy Relief 50 mcg/actuation nasal spray,suspensi on RxNorm: 3747019 2 Sherman Nasal every day 02/13/2020 05/30/2020 Inactive ceftriaxone 500 mg solution for injection RxNorm: 4199587 Injection 01/14/2020 01/14/2020 Inactive Cipro 500 mg tablet RxNorm: 290851 1 Tablet(s) Oral two times a day 01/14/2020 01/24/2020 Inactive ceftriaxone 500 mg solution for injection RxNorm: 7545696 Injection 12/30/2019 12/30/2019 Inactive prednisone 20 mg tablet RxNorm: 983880 2 Tablet(s) Oral every day 0 12/30/2019 01/03/2020 Inactive Singulair 10 mg tablet RxNorm: 006958 1 Tablet(s) Oral every ni ght at bedtime 12/30/2019 04/06/2020 Inactive Keflex 500 mg capsule RxNorm: 496528 1 Capsule(s) Oral three ti mes a day 12/30/2019 01/09/2020 Inactive Vagifem 10 mcg vaginal tablet RxNorm: 146466 INSERT 1 T ABLET TWO TIMES A WEEK PV 12/15/2019 05/30/2020 Inactive pantoprazole 40 mg tablet,delayed release RxNorm: 100638 TAKE 1 TABLET BY MOUTH ONCE DAILY 12/15/2019 06/11/2020 Inactive baclofen 20 mg tablet RxNorm: 326353 1T PO BID WITH FOOD OR MILK 03/08/2020 Inactive prednisone 20 mg tablet RxNorm: 754406 2 Tablet(s) Oral every day 0 12/02/2019 12/07/2019 Inactive Cipro 500 mg tablet RxNorm: 808973 1 Tablet(s) Oral two times a day add on to the 7 days for a total of 10 days 12/02/2019 12/05/2019 Inactive Macrobid 100 mg capsule RxNorm: 015005 1 Capsule(s) Oral two ti mes a day 11/20/2019 11/27/2019 Inactive Macrobid 100 mg capsule RxNorm: 760107 1 Capsule(s) Oral two ti mes a day 11/20/2019 11/19/2019 Inactive cranberry concentrate-ascorbic acid 4,200 mg-20 mg capsule R xNorm: 1 Capsule(s) Oral every day 11/06/2019 No Stop Date Active Claritin 10 mg tablet RxNorm: 804807 1 Tablet(s) Oral every day No Stop Date Active biotin 5,000 mcg disintegrating tablet RxNorm: 1846524 1 Tablet(s) Oral every day 11/06/2019 No Stop Date Active Fetzima 120 mg capsule,extended release RxNorm: 2067494 1 Capsule(s) Oral every day 11/06/2019 No Stop Date Active Vitamin C 1,000 mg tablet RxNorm: 778292 2 Tablet(s) Oral every day 11/06/2019 No Stop Date Active Calcium 500 500 mg calcium (1,250 mg) tablet RxNorm: 031490 1 Tablet(s) Oral every day 11/06/2019 No Stop Date Active Depakote ER 500 mg tablet,extended release RxNorm: 5801070 2 Tablet(s) Oral every night at bedtime 11/06/2019 No Stop Date Active hydroxyzine HCl 10 mg tablet RxNorm: 264817 3 Tablet(s) Oral as needed 11/06/2019 No Stop Date Active Voltaren 1 % topical gel RxNorm: 313189 Topical as needed 0 No Stop Date Active Benadryl Allergy 25 mg tablet RxNorm: 6233536 2 Tablet(s ) Oral every night at bedtime 11/06/2019 06/21/2020 Inactive Vagifem 10 mcg vaginal tablet RxNorm: 193564 Tablet(s) Vaginal 2 times weekly 11/06/2019 12/14/2019 Inactive pantoprazole 40 mg tablet,delayed release RxNorm: 966829 1 Tablet(s) Oral every day 11/06/2019 12/14/2019 Inactive estradiol 2 mg tablet RxNorm: 273548 1 Tablet(s) Oral every day 06/21/2020 Inactive Flonase Allergy Relief 50 mcg/actuation nasal spray,suspensi on RxNorm: 2844272 1 [place] Nasal every day 11/06/2019 02/12/2020 Inactive ibuprofen 600 mg tablet RxNorm: 184962 1 Tablet(s) Oral as needed 0 11/06/2019 06/21/2020 Inactive Vitamin D3 50 mcg (2,000 unit) tablet RxNorm: 018738 2 Tablet(s ) Oral every day 11/06/2019 01/24/2021 Inactive baclofen 20 mg tablet RxNorm: 982949 1 Tablet(s) Oral two times a day 11/06/2019 12/14/2019 Inactive Boniva 150 mg tablet RxNorm: 724836 1 Tablet(s) Oral monthly 201906/21/2020 Inactive dicyclomine 20 mg tablet RxNorm: 617966 1 Tablet(s) Oral three times a day 11/06/2019 02/12/2020 Inactive Miralax 17 gram/dose oral powder RxNorm: 071153 Oral as needed 10/1701/03/2021 Inactive B Complex-Vitamin B12 oral RxNorm: 67467 oral 11/06/2019 Active Reclast intravenous RxNorm: 162211 intravenous 06/22/2020 Ac tive Probiotic oral RxNorm: 6205 oral 11/06/2019 Active Ocuvite Adult 50 Plus oral RxNorm: oral 11/06/2019 Ac tive Multivitamin 50 Plus oral RxNorm: oral 11/06/2019 Act mitchell Medication Administered Medication Codes Instructions Start Date Status ceftriaxone 500 mg solution for injection RxNorm: 1971910 03/15/2022 No longer Active ceftriaxone 500 mg solution for injection RxNorm: 5710189 03/14/2022 No longer Active ceftriaxone 500 mg solution for injection RxNorm: 2803120 03/13/2022 No longer Active ceftriaxone 500 mg solution for injection RxNorm: 7280953 03/10/2022 No longer Active ceftriaxone 500 mg solution for injection RxNorm: 8294664 03/09/2022 No longer Active ceftriaxone 500 mg solution for injection RxNorm: 6367389 10/27/2021 No longer Active Kenalog 40 mg/mL suspension for injection RxNorm: 9452882 1Milli liter 11/23/2020 No longer Active Kenalog 40 mg/mL suspension for injection RxNorm: 8182107 Millilite r 10/29/2020 No longer Active Kenalog 40 mg/mL suspension for injection RxNorm: 6767282 1Milli liter 03/11/2020 No longer Active ceftriaxone 500 mg solution for injection RxNorm: 0095443 01/14/2020 No longer Active ceftriaxone 500 mg solution for injection RxNorm: 1203317 12/30/2019 No longer Active Immunizations Vaccine Codes [...] CULTURE See Note 05/23/2021 Unknown Comp Metabolic Vak011 NA 128 mEq/L 05/18/2021 Unkn own Comp Metabolic Cba933 K 5.0 mEq/L 05/18/2021 Unkn own Comp Metabolic Sew123 CL 93 mEq/L 05/18/2021 Unkn own Comp Metabolic Dtl976 CO2 29.0 mEq/L 05/18/2021 Unk nown Comp Metabolic Myg659 ANION GAP 11 05/18/2021 Unkn own Comp Metabolic Rbz550 GLUCOSE 80 mg/dL 05/18/2021 Unkn own Comp Metabolic Mtw294 Creat 0.7 mg/dL 05/18/2021 Unkn own Comp Metabolic Zrr304 eGFR 87 ml/min/1.73m2 05/18/20 21 Unknown Comp Metabolic Qvc161 BUN 9 mg/dL 05/18/2021 Unkn own Comp Metabolic Hus858 B/C Ratio 12.5 Ratio 05/18/2021 Unk nown Comp Metabolic Wpw405 CALCIUM 8.7 mg/dL 05/18/2021 Unkn own Comp Metabolic Gcx462 ALK PHOS 65 U/L 05/18/2021 Unkn own Comp Metabolic Itx923 AST(SGOT) 9 U/L 05/18/2021 Unkn own Comp Metabolic Bns139 ALT(SGPT) 7 U/L 05/18/2021 Unkn own Comp Metabolic Jxj328 BILI T 0.3 mg/dL 05/18/2021 Unkn own Comp Metabolic Wpl610 ALBUMIN 4.0 g/dL 05/18/2021 Unkn own Comp Metabolic Xnt429 TPRO 6.0 g/dL 05/18/2021 Unkn own Comp Metabolic Aze435 GLOB 2.1 g/dL 05/18/2021 Unkn own Comp Metabolic Bon086 A/G Ratio 1.9 Ratio 05/18/2021 Unkn own Comp Metabolic For198 Osmo 255 mOsmo 05/18/2021 Unkn own C-Reactive Protein Qnt Crqnt CRP 0.1 mg/dl 2020 Unknown Sed Rate Ord21 ESR 5 mm/hr 04/15/2021 Unknown Ra Factor Voj764 RA FACTOR <10 IU/ml 04/15/2021 Unknown CULTURE, [...] Antinuclear Antibody Negative 06/28/2020 Unknown Ra Factor Wqj496 RA FACTOR <10 IU/ml 06/25/2020 Unknown C-Reactive [...] 01/14/20 20 Unknown Cbc With Differential Ord2 Dixie% 7.8 % 01/14/20 20 Unknown Cbc With [...] K/ul 020 Unknown Cbc With Differential Ord2 Dixie ABS# 1.0 K/ul 01/14/20 20 Unknown Cbc With Differential Ord2 Eos ABS# 0.1 K/ul 01/14/20 20 Unknown Cbc With Differential Ord2 Baso ABS# 0.1 K/ul 01/14/20 20 Unknown Comp Metabolic Ogq847 NA 130 mEq/L 01/14/2020 Unkn own Comp Metabolic Nnh942 K 4.6 mEq/L 01/14/2020 Unkn own Comp Metabolic Mtk499 CL 92 mEq/L 01/14/2020 Unkn own Comp Metabolic Fcs815 CO2 31.0 mEq/L 01/14/2020 Unk nown Comp Metabolic Qcf815 ANION GAP 12 01/14/2020 Unkn own Comp Metabolic Sym612 GLUCOSE 81 mg/dL 01/14/2020 Unkn own Comp Metabolic Rxh249 Creat 0.8 mg/dL 01/14/2020 Unkn own Comp Metabolic Vhu740 eGFR 77 ml/min/1.73m2 01/14/20 20 Unknown Comp Metabolic Lbl799 BUN 12 mg/dL 01/14/2020 Unkn own Comp Metabolic Xer207 B/C Ratio 15.0 Ratio 01/14/2020 Unk nown Comp Metabolic Vbn091 CALCIUM 9.2 mg/dL 01/14/2020 Unkn own Comp Metabolic Yxe056 ALK PHOS 71 U/L 01/14/2020 Unkn own Comp Metabolic Llu075 AST(SGOT) 13 U/L 01/14/2020 Unkn own Comp Metabolic Cjk376 ALT(SGPT) 11 U/L 01/14/2020 Unkn own Comp Metabolic Pqx739 BILI T 0.4 mg/dL 01/14/2020 Unkn own Comp Metabolic Fml204 ALBUMIN 3.9 g/dL 01/14/2020 Unkn own Comp Metabolic Vco989 TPRO 6.2 g/dL 01/14/2020 Unkn own Comp Metabolic Czm255 GLOB 2.3 g/dL 01/14/2020 Unkn own Comp Metabolic Ahk473 A/G Ratio 1.7 Ratio 01/14/2020 Unkn own Comp Metabolic Vos077 Osmo 260 mOsmo 01/14/2020 Unkn own CULTURE, [...] CPT-4: G0444 07/24/2022 THER/PROPH/DIAG INJ SC/IM CPT-4: 46416 03/15/2022 ROCEPHIN, PER 250 MG CPT-4: J0696 03/15/2022 THER/PROPH/DIAG INJ SC/IM CPT-4: 90201 03/14/2022 ROCEPHIN, PER 250 MG CPT-4: J0696 03/14/2022 THER/PROPH/DIAG INJ SC/IM CPT-4: 84125 03/13/2022 ROCEPHIN, PER 250 MG CPT-4: J0696 03/13/2022 THER/PROPH/DIAG INJ SC/IM CPT-4: 16517 03/10/2022 ROCEPHIN, PER 250 MG CPT-4: J0696 03/10/2022 THER/PROPH/DIAG INJ SC/IM CPT-4: 08319 03/09/2022 ROCEPHIN, PER 250 MG CPT-4: J0696 03/09/2022 THER/PROPH/DIAG INJ SC/IM CPT-4: 64425 10/27/2021 ROCEPHIN, PER 250 MG CPT-4: J0696 10/27/2021 URINALYSIS NONAUTO W/O SCOPE CPT-4: 14842 05/18/2021 IIV4 VACC NO PRSV 0.5 ML IM CPT-4: 20167 04/08/2021 IIV4 VACC NO PRSV 0.5 ML IM CPT-4: 39485 04/08/2021 ADMIN INFLUENZA VIRUS VAC CPT-4: G0008 04/08/2021 TRIAMCINOLONE ACET INJ NOS 10 mg CPT-4: J3301 021 DRAIN/INJECT JOINT/BURSA CPT-4: 11822 11/17/2020 TRIAMCINOLONE ACET INJ NOS 10 mg CPT-4: J3301 021 IIV4 VACC NO PRSV 0.5 ML IM CPT-4: 73928 04/07/2020 ADMIN INFLUENZA VIRUS VAC CPT-4: G0008 04/07/2020 IIV4 VACC NO PRSV 0.5 ML IM CPT-4: 17003 04/07/2020 URINALYSIS NONAUTO W/O SCOPE CPT-4: 47833 03/16/2020 TRIAMCINOLONE ACET INJ NOS 10 mg CPT-4: J3301 020 THER/PROPH/DIAG INJ SC/IM CPT-4: 32084 03/11/2020 THER/PROPH/DIAG INJ SC/IM CPT-4: 47007 01/14/2020 ROCEPHIN, PER 250 MG CPT-4: J0696 01/14/2020 ROCEPHIN, PER 250 MG CPT-4: J0696 12/30/2019 THER/PROPH/DIAG INJ SC/IM CPT-4: 07693 12/30/2019 Vital Signs Date Vital 10/17/2022 Blood Pressure 1: 132/80 Code: 8480-6 Heart Rate 1: 96 bpm Height: 5'3" Code: 8302-2 SpO2: 96% Temperature: 36.1 (C) / 97.0 (F) 07/24/2022 Blood Pressure 1: 162/78 Code: 8480-6 BMI: 28.7 Code: 64154-9 Heart Rate 1: 89 bpm Height: 5'3" Code: 8302-2 SpO2: 100% Weight: 162 lb s Code: 80672-0 07/03/2022 Blood Pressure 1: 138/70 Code: 8480-6 Heart Rate 1: 72 bpm Height: Code: 8302-2 Respiratory Rate: 16 bpm SpO2: 95% Weight: 163 lbs Code: 23350-3 03/09/2022 Blood Pressure 1: 142/84 Code: 8480-6 BMI: 29.8 Code: 20309-7 Heart Rate 1: 87 bpm Height: 5'3" Code: 8302-2 SpO2: 98% Temperature: 3 6.3 (C) / 97.3 (F) Weight: 168 lbs Code: 60507-8 10/27/2021 Blood Pressure 1: 134/78 Code: 8480-6 BMI: 28.9 Code: 66973-2 Heart Rate 1: 88 bpm Height: 5'3" Code: 8302-2 SpO2: 97% Temperature: 3 6.1 (C) / 96.9 (F) Weight: 163 lbs Code: 69859-6 09/28/2021 Blood Pressure 1: 142/84 Code: 8480-6 BMI: 28.9 Code: 03422-5 Heart Rate 1: 67 bpm Height: 5'3" Code: 8302-2 SpO2: 96% Temperature: 3 5.9 (C) / 96.7 (F) Weight: 163 lbs Code: 65844-1 09/02/2021 Blood Pressure 1: 142/84 Code: 8480-6 BMI: 28.9 Code: 45663-2 Heart Rate 1: 95 bpm Height: 5'3" Code: 8302-2 SpO2: 99% Temperature: 3 6.3 (C) / 97.4 (F) Weight: 163 lbs Code: 64915-2 06/01/2021 Blood Pressure 1: 126/80 Code: 8480-6 BMI: 28.0 Code: 86809-2 Heart Rate 1: 84 bpm Height: 5'3" Code: 8302-2 SpO2: 96% Temperature: 3 6.2 (C) / 97.1 (F) Weight: 158 lbs Code: 90926-2 05/18/2021 Blood Pressure 1: 152/76 Code: 8480-6 Heart Rate 1: 68 bpm Height: Code: 8302-2 Temperature: 36.3 (C) / 97.3 (F) Weight: Code: 83306- 7 03/03/2021 Blood Pressure 1: 132/80 Code: 8480-6 Heart Rate 1: 88 bpm Height: Code: 8302-2 Weight: Code: 61425-3 02/01/2021 Blood Pressure 1: 146/82 Code: 8480-6 Heart Rate 1: 84 bpm Height: 5'3" Code: 8302-2 Respiratory Rate: 16 bpm SpO2: 98% Temperature: 36 .2 (C) / 97.2 (F) Weight: Code: 70482-1 11/17/2020 Blood Pressure 1: 140/80 Code: 8480-6 Heart Rate 1: 72 bpm Height: 5'3" Code: 8302-2 SpO2: 100% Temperature: 36.1 (C) / 97.0 (F) Weight: Code: 16487-0 10/29/2020 Blood Pressure 1: 126/74 Code: 8480-6 BMI: 28.7 Code: 81594-3 Heart Rate 1: 86 bpm Height: 5'3" Code: 8302-2 SpO2: 99% Temperature: 3 6.3 (C) / 97.3 (F) Weight: 162 lbs Code: 46600-2 09/22/2020 Blood Pressure 1: 138/72 Code: 8480-6 BMI: 28.9 Code: 96110-8 Heart Rate 1: 74 bpm Height: 5'3" Code: 8302-2 Temperature: 35.9 (C) / 96.7 (F) Weight: 163 lbs Code: 71643-5 08/20/2020 Blood Pressure 1: 148/80 Code: 8480-6 BMI: 28.2 Code: 32385-1 Heart Rate 1: 94 bpm Height: 5'3" Code: 8302-2 SpO2: 95% Temperature: 3 6.3 (C) / 97.3 (F) Weight: 159 lbs Code: 84234-5 07/22/2020 Blood Pressure 1: 160/80 Code: 8480-6 Bl ood Pressure 1: 142/76 Code: 8480-6 BMI: 27.8 Code: 09914-4 Heart Rate 1: 84 bpm Height: 5'3" Code: 8302-2 Respiratory Rate: 18 bpm SpO2: 97% Temperature: 36.4 (C) / 97.5 (F) We ight: 157 lbs Code: 25571-9 07/16/2020 Blood Pressure 1: 140/78 Code: 8480-6 BMI: 27.8 Code: 37034-4 Heart Rate 1: 86 bpm Height: 5'3" Code: 8302-2 SpO2: 97% Temperature: 3 6.3 (C) / 97.3 (F) Weight: 157 lbs Code: 22293-7 06/22/2020 Blood Pressure 1: 162/84 Code: 8480-6 BMI: 27.8 Code: 27473-2 Heart Rate 1: 93 bpm Height: 5'3" Code: 8302-2 Respiratory Rate: 16 bpm SpO2: 100% Temperature: 36.2 (C) / 97.1 (F) Weight: 157 lbs Code: 85162-7 05/24/2020 Height: Code: 8302-2 Weight: Code: 294 63-7 04/05/2020 Blood Pressure 1: 132/74 Code: 8480-6 BMI: 26.9 Code: 87234-3 Heart Rate 1: 74 bpm Height: 5'3" Code: 8302-2 Weight: 152 lbs Code: 48018 -7 03/22/2020 Height: Code: 8302-2 Weight: Code: 294 63-7 03/16/2020 Height: Code: 8302-2 Weight: Code: 294 63-7 03/15/2020 Blood Pressure 1: 140/76 Code: 8480-6 Heart Rate 1: 82 bpm Height: 5'3" Code: 8302-2 SpO2: 97% Temperature: 37.2 (C) / 99.0 (F) 03/11/2020 BMI: 26.9 Code: 29847-0 Heart Rate 1: 80 bpm Hei ght: 5'3" Code: 8302-2 Weight: 152 lbs Code: 65385-6 02/17/2020 Blood Pressure 1: 134/72 Code: 8480-6 BMI: 27.3 Code: 14049-6 Heart Rate 1: 84 bpm Height: 5'3" Code: 8302-2 Respiratory Rate: 16 bpm SpO2: 96% Temperature: 36.2 (C) / 97.1 (F) Weight: 154 lbs Code: 64888-9 01/14/2020 Blood Pressure 1: 122/74 Code: 8480-6 Heart Rate 1: 87 bpm Height: Code: 8302-2 SpO2: 99% Temperature: 36.4 (C) / 97.6 (F) Weight: Code: 50477-6 12/30/2019 Height: Code: 8302-2 Weight: Code: 294 63-7 12/02/2019 Blood Pressure 1: 148/86 Code: 8480-6 BMI: 27.3 Code: 39236-5 Heart Rate 1: 96 bpm Height: 5'3" Code: 8302-2 SpO2: 98% Temperature: 3 7.2 (C) / 98.9 (F) Weight: 154 lbs Code: 82011-5 11/06/2019 Blood Pressure 1: 146/78 Code: 8480-6 BMI: 27.3 Code: 49120-8 Heart Rate 1: 94 bpm Height: 5'3" Code: 8302-2 SpO2: 98% Temperature: 3 6.3 (C) / 97.3 (F) Weight: 154 lbs Code: 90674-3 Functional Status No Functional Status data Reason [...] Encounter Performer Location Location Address Codes Date ([id number]) 70691 EST. PATIENT, LEVEL III Diagnosis: Compression fracture of L3 vertebra, initial encounter[ICD10: S32.030A] Diagnosis: Compression fracture of L5 vertebra, initial encounter[ICD10: S32.050A] Ara Demarco MD, [facility] [address] [place] [address] CPT-4: 84501 10/17/2022 ([id number]) 29950 EST. PATIENT, LEVEL III Diagnosis: Essential (primary) hypertension[ICD10: I10] Rubina Demarco MD, [facility] [address] [place] [address] CPT-4: 9921 3 07/03/2022 ([id number]) 10564 EST. PATIENT, LEVEL IV Diagnosis: Essential (primary) hypertension[ICD10: I10] Diagnosis: Dysuria[ICD10: R30.0] Diagnosis: Urinary tract infection[ICD10: N39.0] Rubina Demarco MD, [facility] [address] [place] [address] CPT-4: 9921 4 03/09/2022 ([id number]) 12910 EST. PATIENT, LEVEL I Diagnosis: Urinary tract infection[ICD10: N39.0] Rubina Demarco MD, [facility] [address] [place] [address] CPT-4: 9921 1 12/02/2021 ([id number]) 55408 EST. PATIENT, LEVEL IV Diagnosis: Essential (primary) hypertension[ICD10: I10] Diagnosis: Non-traumatic compression fracture of L5 lumbar vertebra with routine healing, subsequent encounter[ICD10: M48.56XD] Diagnosis: Other chronic pain[ICD10: G89.29] Diagnosis: Dysuria[ICD10: R30.0] Diagnosis: Urinary tract infection[ICD10: N39.0] Rubina Demarco MD, [facility] [address] [place] [address] CPT-4: 9921 4 10/27/2021 ([id number]) 26045 EST. PATIENT, LEVEL IV Diagnosis: Essential (primary) hypertension[ICD10: I10] Diagnosis: Chronic back pain[ICD10: M54.9] Diagnosis: Nontraumatic compression fracture of L5 vertebra, initial encounter[ICD10: M48.56XA] Rubina Demarco MD, [facility] [address] [place] [address] CPT-4: 59430 09/28/2021 ([id number]) 10570 EST. PATIENT, LEVEL III Diagnosis: Other allergic rhinitis[ICD10: J30.89] Ara Stewart MD, [facility] [address] [place] [address] CPT-4: 9921 3 09/02/2021 ([id number]) 72938 EST. PATIENT, LEVEL IV Diagnosis: Essential (primary) hypertension[ICD10: I10] Diagnosis: Other chronic pain[ICD10: G89.29] Diagnosis: Chronic idiopathic constipation[ICD10: K59.04] Diagnosis: Hyponatremia[ICD10: E87.1] Rubina Demarco MD, [facility] [address] [place] [address] CPT-4: 27918 06/01/2021 ([id number]) 86311 EST. PATIENT, LEVEL IV Diagnosis: Essential (primary) hypertension[ICD10: I10] Diagnosis: Age-related osteoporosis without current pathological fracture[ICD10: M81.0] Diagnosis: Dysuria[ICD10: R30.0] Diagnosis: Oral candidiasis[ICD10: B37.0] Whitney Demarco MD, [facility] [address] [place] [address] CPT-4: 29209 05/18 ([id number]) Miscellaneous no charge Diagnosis: Laceration of right lower leg[ICD10: S81.811A] Rubina Demarco MD, [facility] [address] [place] [address] CPT-4: 9999 9 03/11/2021 ([id number]) 76859 EST. PATIENT, LEVEL I Diagnosis: Laceration of left lower leg[ICD10: S81.812A] Diagnosis: Laceration of right lower leg[ICD10: S81.811A] Rubina Demarco MD, [facility] [address] [place] [address] CPT-4: 9921 1 03/04/2021 ([id number]) 16039 EST. PATIENT, LEVEL III Diagnosis: Laceration of right lower leg[ICD10: S81.811A] Diagnosis: Laceration of left lower leg[ICD10: S81.812A] Ara Demarco MD, [facility] [address] [place] [address] CPT-4: 9921 3 03/03/2021 ([id number]) 25069 EST. PATIENT, LEVEL IV Diagnosis: Essential (primary) hypertension[ICD10: I10] Diagnosis: Low back pain[ICD10: M54.5] Diagnosis: Chronic back pain[ICD10: M54.9] Rubina wills MD, [facility] [address] [place] [address] CPT-4: 9921 4 02/01/2021 73467 EST. PATIENT, LEVEL III Diagnosis: Pain of right sacroiliac joint[ICD10: M53.3] Diagnosis: Chronic back pain[ICD10: M54.9] Samara Demarco MD , [facility] [address] [place] [address] CPT-4: 10694 11/17 ([id number]) 03562 EST. PATIENT, LEVEL III Diagnosis: Pain of left sacroiliac joint[ICD10: M53.3] Diagnosis: Low back pain[ICD10: M54.5] Diagnosis: Nicotine dependence, cigarettes, uncomplicated[ICD10: F17.210] Ara Demarco MD, [facility] [address] [place] [address] CPT-4: 88822 10/29/2020 ([id number]) 10016 EST. PATIENT, LEVEL IV Diagnosis: Essential (primary) hypertension[ICD10: I10] Diagnosis: Weakness[ICD10: R53.1] Diagnosis: Generalized osteoarthritis[ICD10: M15.9] Diagnosis: Fibromyalgia[ICD10: M79.7] Rubina Demarco MD, [facility] [address] [place] [address] CPT-4: 24576 09/22/2020 ([id number]) 04206 EST. PATIENT, LEVEL III Diagnosis: Essential (primary) hypertension[ICD10: I10] Ara Demarco MD, [facility] [address] [place] [address] CPT-4: 9921 3 08/20/2020 ([id number]) 47916 EST. PATIENT, LEVEL III Diagnosis: Essential (primary) hypertension[ICD10: I10] Rubina Demarco MD, [facility] [address] [place] [address] CPT-4: 9921 3 07/22/2020 ([id number]) 84391 EST. PATIENT, LEVEL III Diagnosis: Dysuria[ICD10: R30.0] Diagnosis: Benign paroxysmal positional vertigo, bilateral[ICD10: H81.13] Ara Demarco MD, [facility] [address] [place] [address] CPT-4: 67137 07/16/2020 ([id number]) 48515 EST. PATIENT, LEVEL IV Diagnosis: Essential (primary) hypertension[ICD10: I10] Diagnosis: Chronic back pain[ICD10: M54.9] Diagnosis: Weakness[ICD10: R53.1] Diagnosis: Fibromyalgia[ICD10: M79.7] Diagnosis: Generalized osteoarthritis[ICD10: M15.9] Diagnosis: Breast pain, left[ICD10: N64.4] Rubina wills MD, [facility] [address] [place] [address] CPT-4: 9921 4 06/22/2020 ([id number]) 65838 EST. PATIENT, LEVEL III Diagnosis: Cough[ICD10: R05] Diagnosis: Acute recurrent maxillary sinusitis[ICD10: J01.01] Ara Boland Located Within [facility] [address] [place] [address] CPT-4: 9921 3 05/24/2020 86038 EST. PATIENT, LEVEL III Diagnosis: Benign paroxysmal positional vertigo, bilateral[ICD10: H81.13] Diagnosis: Weakness[ICD10: R53.1] Diagnosis: Imbalance[ICD10: R26.89] Diagnosis: Frequent falls[ICD10: R29.6] Samara Demarco MD, [facility] [address] [place] [address] CPT-4: 62523 04/05/2020 29659 EST. PATIENT, LEVEL III Diagnosis: Skin tear of right forearm without complication, subsequent encounter[ICD10: S51.811D] Diagnosis: Other allergic rhinitis[ICD10: J30.89] Diagnosis: Rib pain on left side[ICD10: R07.81] Samara Demarco MD, [facility] [address] [place] [address] CPT-4: 9921 3 03/22/2020 22484 EST. PATIENT, LEVEL II Diagnosis: Skin tear of right forearm without complication, subsequent encounter[ICD10: S51.811D] Diagnosis: Dysuria[ICD10: R30.0] Samara Demarco MD, [facility] [address] [place] [address] CPT-4: 13580 03/16/2020 19964 EST. PATIENT, LEVEL III Diagnosis: Right shoulder pain[ICD10: M25.511] Diagnosis: Right knee pain[ICD10: m25.561] Diagnosis: Skin tear of right forearm without complication[ICD10: S51.811A] Samara Demarco MD, [facility] [address] [place] [address] CPT-4: 57293 03/15/2020 83539 EST. PATIENT, LEVEL IV Diagnosis: Other acute sinusitis[ICD10: J01.80] Diagnosis: Other allergic rhinitis[ICD10: J30.89] Diagnosis: Right knee pain[ICD10: m25.561] Samara Demarco MD , [facility] [address] [place] [address] CPT-4: 39621 03/11 ([id number]) 32240 EST. PATIENT, LEVEL IV Diagnosis: Gastro-esophageal reflux disease without esophagitis[ICD10: K21.9] Diagnosis: Age-related osteoporosis without current pathological fracture[ICD10: M81.0] Diagnosis: Chronic back pain[ICD10: M54.9] Rubina wills MD, [facility] [address] [place] [address] CPT-4: 9921 4 02/17/2020 96516 EST. PATIENT, LEVEL III Diagnosis: Dysuria[ICD10: R30.0] Diagnosis: Hematuria[ICD10: R31.9] Samara Demarco MD, [facility] [address] [place] [address] CPT-4: 23745 01/14/2020 18726 EST. PATIENT, LEVEL III Diagnosis: Dysuria[ICD10: R30.0] Diagnosis: Other allergic rhinitis[ICD10: J30.89] Samara Stewart MD, [facility] [address] [place] [address] CPT-4: 9921 3 12/30/2019 77482 EST. PATIENT, LEVEL IV Diagnosis: Other acute sinusitis[ICD10: J01.80] Diagnosis: Other allergic rhinitis[ICD10: J30.89] Diagnosis: Cough[ICD10: R05] Samara Demarco MD, [facility] [address] [place] [address] CPT-4: 48370 12/02/2019 ([id number]) OFFICE VISIT, NEW - LEVEL 4 Diagnosis: Age-related osteoporosis without current pathological fracture[ICD10: M81.0] Diagnosis: Nasal sinus congestion[ICD10: R09.81] Diagnosis: Other chronic pain[ICD10: G89.29] Diagnosis: Chronic back pain[ICD10: M54.9] Diagnosis: Gastro-esophageal reflux disease without esophagitis[ICD10: K21.9] Rubina Demarco MD, [facility] [address] [place] [address] CPT-4: 53232 11/06/2019 Plan of Care Planned Activity Notes Codes Status Date Visit Plan: Compression fractures of L3 and L5 - patient is interested in kyphoplasty due to increased pain - will order MRI lumbar spine and then plan to refer to [facility] for evaluation- refill percocet to use prn as directed - patient verbalized understanding of plan. 10/17/2022 Appointment: Aar Boland WPtel: [facility] [address] (30 min) Complex 10/17/2022 Patient Education: Patient [...] patient's DME 07/24/2022 Appointment: Ara Boland [facility]Ptel[phone] [facility] - Annual Wellness Visit 11/2022 [...] as well. 07/03/2022 App[facility]ment[phone] [phone] ([facility] min[facility] Moderate 07/03/2022 Patient Education: Patient [...] pharmacy. 03/09/2022 Appointment[phone] ([facility] min) Complex 03/09/2022 Patient Education: Patient [...] fixation needed. 09/28/2021 Appointment: Rubina Demarco WPtel: [phone] [phone] (15 min) Moderate 09/28/2021 Patient Education: Patient [...] allergy spray. 09/02/2021 Appointment: Ara Boland WPtel: [phone] [phone] (30 min) Complex 09/02/2021 Patient Education: Patient [...] send a referral to [facility] for silke augustine. increase the extra strength tylenol to three times daily, continue with naproxen twice daily. Restart Gatorade 8 ounces - Hair loss and itching - get some Tea tree oil and use on your scalp three times a week 06/01/2021 Appointment: [phone] [id number] [place] (15 min) Moderate 06/01/2021 Patient Education: Patient [...] calcium adequate. 05/18/2021 Appointment: Whitney Shelton [phone] [place] (30 min) Complex 05/18/2021 Patient Education: Patient Medication Summary Completed 05/18/2021 Patient Education: cephalexin- [employer] Coupon [id number] Completed 05/18/2021 Care Plan: Urine Culture Pending [...] outpatient services. 02/01/2021 Appointment: Rubina Demarco WPtel: [facility] [place] [address] (15 min) Moderate 02/01/2021 Patient Education: Patient Medication Summary Completed 02/01/2021 Patient Education: Back Pain Completed 02/01/2021 Appointment: Rubina Demarco WPtel: [facility] [place] [address] 30 min appointments only in this slot [...] injection. 11/17/2020 Appointment: Samara Cormier WPtel: [phone] [phone] (30 min) Complex 11/17/2020 Patient Education: Patient Medication Summary Completed 11/17/2020 Visit Plan: Sacroiliitis - kenalog injec tion today - back exercises discussed with the patient, pt to continue with anti-inflammatories. Pt is to call if the symptoms do not improve or if they worsen. Tobacco use- patient is due for low dose CT scan 10/29/2020 Appointment: Ara Boland WPtel: [phone] [phone] (15 min) Moderate 10/29/2020 Patient Education: [...] care only. 09/22/2020 Appointment: Rubina Demarco WPtel: [phone] [phone] (15 min) Moderate 09/22/2020 Patient Education: Patient [...] to call for acute concerns. 08/20/2020 Appointment: Aar Boland WPtel: [phone] (15 min) Moderate 08/20/2020 Patient Education: Patient Medication Summary Completed 08/20/2020 Patient Education: Hypertension Completed 08/20/2020 Appointment: Rubina Demarco WPtel: [facility]5 [phone] (30 min) Complex 08/19/2020 Visit Plan: Hypertension [...] at bedtime. 07/22/2020 Appointment: Rubina Demarco WPtel[phone] ([facility] min) Complex 07/22/2020 Patient Education: Patient Medication Summary Completed 07/22/2020 Visit Plan: Dysuria- history of UTI- rx for cipro sent to start over the weekend if needed -culture pending BPPV - continue meclizine as needed 07/16/2020 Appointment: Ara Boland WPtel: [phone] (30 min) Complex 07/16/2020 Patient Education: Patient [...] [facility] because she has to stay in [place] 06/22/2020 Appointment: Rubina Demarco WPtel: [phone] (30 min) Complex 06/22/2020 Patient Education: Patient Medication Summary Completed 06/22/2020 Visit Plan: Sinusitis - Pt has acute inf ection - pain in face, maxillary region, Pt informed to use decongestant, RX given to patient, sinus rinses also recommended. Call if symptoms do not show improvement. 05/24/2020 Appointment: Ara Boland WPtel: [phone] TeleHealth 05/24/2020 Patient Education: Patient Medication Summary [...] concerns. 04/05/2020 Appointment: Samara Cormier WPtel: [phone] [place] [phone] (30 min) Complex 04/05/2020 Patient Education: Patient [...] or concerns. 03/22/2020 Appointment: Samara Cormier WPtel: [address] [place] [address] (15 min) Moderate 03/22/2020 Patient Education: Patient [...] warmth, discharge. 03/16/2020 Appointment: Samara Cormier WPtel: [address] [place] [address] (15 min) Moderate 03/16/2020 Patient Education: Patient [...] warmth, discharge. 03/15/2020 Appointment: Samara Cormier WPtel: [facility] [address] (15 min) Moderate 03/15/2020 Patient Education: Patient [...] improve. 03/11/2020 Appointment: Samara Cormier WPtel: [phone] [phone] (30 min) Complex 03/11/2020 Patient Education: Patient [...] Reclast 02/17/2020 Appointment: Rubina Demarco WPtel: [phone] [phone] [place] (15 min) Moderate 02/17/2020 Patient Education: Patient Medication Summary Completed 02/17/2020 Visit Plan: Hematuria- unable to do UA - will culture 02/09/2020 Appointment: Lab Draw 02/09/2020 Patient Education: Patient Medication Summary Completed 02/09/2020 Care Plan: Urine Culture Pending Appointment: Samara Cormier WPtel: [phone] [phone] [place] (30 min) Complex 01/14/2020 Patient Education: Patient Medication Summary Completed 01/14/2020 Care Plan: Urine Culture Pending App[facility]ment: [phone] (10 min) Simple 12/30/2019 Patient Education: Patient Medication Summary Completed 12/30/2019 Care Plan: Urine Culture Pending Visit Plan: Sinusitis/URI - will send aislinn vargas COVID-19 testing - Pt has acute infection [...] spray. 12/02/2019 Appointment: [facility]el[phone] (30 min) Complex 12/02/2019 Patient Education: Patient [...] bisphosphonate until she is seen by the Vector Control Specialist at [facility]. Esophageal Reflux - the patient [...] Education: Patient Medication Summary Completed 11/06/2019 Referral: [facility] Referral Appointment Requested Instructions Comment Date [...] - we will send a referral to [facility] for aqua therapy. increase the extra strength [...] L1 re- fracture of previous compression fracture- 9 Hypertension - well controlled - continue with [...] 08/20/2020 [facility] Hypertension - uncontrolled - the gonzález [...] bisphosphonate until she is seen by the Vector Control Specialist at [facility]. Esophageal Reflux - the patient [...]
--- OUTSIDE RECORDS SUMMARY | 2022-12-05 15:48 | XMS REPORT | CCD ---
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 Phone [facility] Unavailable CCM Unavailable Summary Purpose Interface Exchange Insurance Providers Payer name Policy type / Coverage type Covered democrat ID Effective Begin Date Effective End Date WPS Medicare Part B Medicare Part B [id number] Unknown Unkno wn [facility] Medicare Part B [id number] Unknown Unknown Family history Uncle Diagnosis Age [...] Description Effective Dates Tobacco history SNOMED CT: 19268308 Current every day smoker Marital status Unknown 11/06/2019 Number of children Unknown 4 grown 11/06/2019 Employment Unknown Retired 4 years ago due to health issues 11/06/2019 Number of years using tobacco Unknown 50 Number of cigarettes/day Unknown 20 (One Pack) [address]: 640072 Currently drinks alcohol 11/05 Frequency of drinks SNOMED CT: 885958756 1drink per week 020 Allergies, Adverse Reactions, Alerts Substance Reaction Codes Entered Date Inactivated Date Status MORPHINE SULFATE rash RxNorm: 19876 11/06/2019 No Inactive Date Active * OTHER REACTION - SEE ANSWER BOX Dilaudid- itching Unknown No Inactive Date Active hydrocodone pruritis Unknown 11/06/2019 No Inactive Date Active bactrim hives, RxNorm: 267880 02/10/2020 No Inactive Date Acti ve IODINE; [...] 02/25/2023 Active Pepcid 20 mg tablet RxNorm: 063715 Take 1 Tablet(s) Oral two ti mes a day 10/26/2022 11/04/2022 Active please deliver prednisone 20 mg tablet RxNorm: 274608 Take 2 Tablet(s) Oral ev anatoly day 10/26/2022 10/28/2022 Inactive Pepcid 20 mg tablet RxNorm: 657092 Take 1 Tablet(s) Oral two ti mes a day 10/26/2022 10/26/2022 Inactive please deliver pantoprazole 40 mg tablet,delayed release RxNorm: 098833 TAKE 1 TABLET BY MOUTH ONCE DAILY 10/19/2022 11/17/2022 Active This prescriptio n was filled on 09/26/2022. Any refills authorized will be placed on file. diazepam 5 mg tablet RxNorm: 929621 Take 1 Tablet(s) Oral as di rected 10/17/2022 No Stop Date Active 30 min prior to MRI - may repeat x 1 Percocet 5 mg-325 mg tablet RxNorm: 2725062 Take 1 Table t(s) Oral four times a day 10/17/2022 11/15/2022 Active calcitonin (salmon) 200 unit/actuation nasal spray RxNorm: 3 67693 INSTILL ONE SPRAY IN ONE NOSTRIL EVERY DAY ALTERNATING DAILY 10/02/2022 11/30/2022 Active estradiol 10 mcg vaginal tablet RxNorm: 986577 INSERT O NE TABLET VAGINALLY TWO TIMES PER WEEK 10/02/2022 03/18/2023 Active metoprolol succinate ER 50 mg tablet,extended release 24 hr RxNorm: 828573 Take 1 Tablet(s) Oral every day 09/17/2022 06/07/2024 Active This prescription was filled on 08/24/2022. Any refills authorized will be placed on file. naproxen 500 mg tablet RxNorm: 909818 Take 1 Tablet(s) Oral two times a day 09/17/2022 04/14/2023 Active This prescription wa s filled on 08/24/2022. Any refills authorized will be placed on file. fluticasone propionate 50 mcg/actuation nasal spray,suspensi on RxNorm: 5081842 USE TWO SPRAYS IN EACH NOSTRIL EVERY DAY 08/17/2022 12/14/2022 Active This prescription was filled on 07/25/2022. Any refills authorized will be placed on file. gabapentin 100 mg capsule RxNorm: 261251 TAKE ONE CAPSU LE BY MOUTH EVERY MORNING AND TAKE ONE CAPSULE BY MOUTH EARLY AFTERNOON 08/17/2022 01/13/2023 Ac tive This prescription was filled on 07/25/2022. Any refills authorized will be placed on file. gabapentin 300 mg capsule RxNorm: 363467 Take 1 Capsule(s) Oral at bed time 08/17/2022 01/13/2023 Active This prescription wa s filled on 07/25/2022. Any refills authorized will be placed on file. baclofen 20 mg tablet RxNorm: 829288 TAKE ONE TABLET BY MOUTH TWICE DAILY WITH FOOD OR MILK 07/25/2022 11/21/2022 Active cefdinir 300 mg capsule RxNorm: 393873 Take 1 Capsule(s) Oral t wo times a day 07/24/2022 07/30/2022 Inactive dicyclomine 20 mg tablet RxNorm: 566746 TAKE 1 TABLET B Y MOUTH THREE TIMES DAILY 07/20/2022 11/16/2022 Active This prescriptio n was filled on 06/27/2022. Any refills authorized will be placed on file. baclofen 20 mg tablet RxNorm: 264441 TAKE ONE TABLET BY MOUTH TWICE DAILY WITH FOOD OR MILK 06/27/2022 06/27/2022 Inactive calcitonin (salmon) 200 unit/actuation nasal spray RxNorm: 3 13400 INSTILL ONE SPRAY IN ONE NOSTRIL EVERY DAY ALTERNATING DAILY 06/19/2022 09/16/2022 Inactive This prescription was filled on 05/26/2022. Any refills authorized will be placed on file. baclofen 20 mg tablet RxNorm: 216527 TAKE ONE TABLET BY MOUTH TWICE DAILY WITH FOOD OR MILK 05/30/2022 05/30/2022 Inactive This prescriptio n was filled on 04/06/2021. Any refills authorized will be placed on file. pantoprazole 40 mg tablet,delayed release RxNorm: 309919 TAKE 1 TABLET BY MOUTH ONCE DAILY 05/19/2022 10/15/2022 Inactive This prescriptio n was filled on 04/26/2022. Any refills authorized will be placed on file. cephalexin 500 mg capsule RxNorm: 876787 Take 1 Capsule (s) Oral three times a day 04/25/2022 05/01/2022 Inactive cephalexin 500 mg capsule RxNorm: 038663 Take 1 Capsule (s) Oral three times a day 04/25/2022 04/25/2022 Inactive estradiol 0.01% (0.1 mg/gram) vaginal cream RxNorm: 141149 A PEA SIZE AMOUNT ACROSS URETHRAL OPENING DAILY FOR 21 DAYS THEN ON SUNDAY., SUNDAY., SUNDAY. THEREAFTER 04/20/2022 10/16/2022 Inactive This prescriptio n was filled on 03/27/2022. Any refills authorized will be placed on file. Augmentin 875 mg-125 mg tablet RxNorm: 310112 Take 1 Ta blet(s) Oral two times a day 03/28/2022 04/01/2022 Inactive dicyclomine 20 mg tablet RxNorm: 469882 TAKE 1 TABLET B Y MOUTH THREE TIMES DAILY 03/20/2022 03/20/2022 Inactive This prescriptio n was filled on 02/23/2022. Any refills authorized will be placed on file. gabapentin 100 mg capsule RxNorm: 974321 TAKE ONE CAPSU LE BY MOUTH EVERY MORNING AND TAKE ONE CAPSULE BY MOUTH EARLY AFTERNOON 03/20/2022 08/16/2022 In active This prescription was filled on 02/23/2022. Any refills authorized will be placed on file. montelukast 10 mg tablet RxNorm: 126061 Take 1 Tablet(s) Oral a t bed time 03/20/2022 05/30/2022 Inactive This prescription wa s filled on 02/23/2022. Any refills authorized will be placed on file. gabapentin 300 mg capsule RxNorm: 842971 Take 1 Capsule(s) Oral at bed time 03/20/2022 08/16/2022 Inactive This prescription wa s filled on 02/23/2022. Any refills authorized will be placed on file. calcitonin (salmon) 200 unit/actuation nasal spray RxNorm: 3 10894 INSTILL ONE SPRAY IN ONE NOSTRIL EVERY DAY ALTERNATING DAILY 03/20/2022 06/17/2022 Inactive This prescription was filled on 02/23/2022. Any refills authorized will be placed on file. ceftriaxone 500 mg solution for injection RxNorm: 1120407 Take I njection 03/15/2022 03/15/2022 Inactive ceftriaxone 500 mg solution for injection RxNorm: 2514104 Take I njection 03/14/2022 03/14/2022 Inactive ceftriaxone 500 mg solution for injection RxNorm: 7248945 Take I njection 03/13/2022 03/13/2022 Inactive ceftriaxone 500 mg solution for injection RxNorm: 5607418 Take I njection 03/10/2022 03/10/2022 Inactive amoxicillin 875 mg-potassium clavulanate 125 mg tablet RxNor m: 699629 Take 1 Tablet(s) Oral two times a day 03/09/2022 03/13/2022 Inactive ceftriaxone 500 mg solution for injection RxNorm: 0083138 Take I njection 03/09/2022 03/09/2022 Inactive estradiol 10 mcg vaginal tablet RxNorm: 581367 INSERT O NE TABLET VAGINALLY TWO TIMES PER WEEK 03/07/2022 08/21/2022 Inactive This prescriptio n was filled on 12/20/2021. Any refills authorized will be placed on file. cephalexin 500 mg capsule RxNorm: 537529 Take 1 Capsule (s) Oral three times a day 02/24/2022 03/02/2022 Inactive metoprolol succinate ER 50 mg tablet,extended release 24 hr RxNorm: 433148 Take 1 Tablet(s) Oral every day 02/20/2022 02/20/2022 Inactive This prescription was filled on 01/26/2022. Any refills authorized will be placed on file. naproxen 500 mg tablet RxNorm: 858282 Take 1 Tablet(s) Oral two times a day 02/20/2022 02/20/2022 Inactive This prescription wa s filled on 01/26/2022. Any refills authorized will be placed on file. fluticasone propionate 50 mcg/actuation nasal spray,suspensi on RxNorm: 1466182 USE TWO SPRAYS IN EACH NOSTRIL EVERY DAY 02/05/2022 06/04/2022 Inactiv e calcitonin (salmon) 200 unit/actuation nasal spray RxNorm: 3 11230 INSTILL ONE SPRAY IN ONE NOSTRIL EVERY DAY ALTERNATING DAILY 2021 2021 Inactive pantoprazole 40 mg tablet,delayed release RxNorm: 420569 TAKE 1 TABLET BY MOUTH ONCE DAILY 12/21/2021 12/21/2021 Inactive This prescriptio n was filled on 11/28/2021. Any refills authorized will be placed on file. Cipro 500 mg tablet RxNorm: 864973 Take 1 Tablet(s) Oral two ti mes a day 12/09/2021 12/15/2021 Inactive Pyridium 200 mg tablet RxNorm: 4353140 Take 1 Tablet(s) Oral three times a day as needed 12/02/2021 No Stop Date Active cephalexin 500 mg capsule RxNorm: 958870 Take 1 Capsule (s) Oral three times a day 12/02/2021 12/08/2021 Inactive levocetirizine 5 mg tablet RxNorm: 256623 Take 1 Tablet(s) Oral every day 11/28/2021 11/22/2022 Active dicyclomine 20 mg tablet RxNorm: 572058 TAKE 1 TABLET B Y MOUTH THREE TIMES DAILY 11/20/2021 11/20/2021 Inactive This prescriptio n was filled on 10/28/2021. Any refills authorized will be placed on file. calcitonin (salmon) 200 unit/actuation nasal spray RxNorm: 3 21197 INSTILL ONE SPRAY IN ONE NOSTRIL EVERY DAY ALTERNATING DAILY 11/20/2021 12/19/2021 Inactive This prescription was filled on 10/28/2021. Any refills authorized will be placed on file. celecoxib 200 mg capsule RxNorm: 511482 Take 1 Capsule(s) Oral two times a day 11/02/2021 05/02/2022 Inactive estradiol 0.01% (0.1 mg/gram) vaginal cream RxNorm: 376279 A PEA SIZE AMOUNT ACROSS URETHRAL OPENING DAILY FOR 21 DAYS THEN ON SUNDAY., SUNDAY., SUNDAY. THEREAFTER 10/28/2021 10/28/2021 Inactive cephalexin 500 mg tablet RxNorm: 320149 Take 1 Tablet(s) Oral t hree times a day 10/27/2021 11/02/2021 Inactive ceftriaxone 500 mg solution for injection RxNorm: 9837618 Take I njection 10/27/2021 10/27/2021 Inactive naproxen 500 mg tablet RxNorm: 345044 Take 1 Tablet(s) Oral two times a day 10/24/2021 10/24/2021 Inactive This prescription wa s filled on 09/28/2021. Any refills authorized will be placed on file. gabapentin 100 mg capsule RxNorm: 239096 TAKE ONE CAPSU LE BY MOUTH EVERY MORNING AND TAKE ONE CAPSULE BY MOUTH EARLY AFTERNOON 10/24/2021 10/24/2021 In active This prescription was filled on 09/28/2021. Any refills authorized will be placed on file. gabapentin 300 mg capsule RxNorm: 628594 Take 1 Capsule(s) Oral at bed time 10/24/2021 10/24/2021 Inactive This prescription wa s filled on 09/28/2021. Any refills authorized will be placed on file. Prolia 60 mg/mL subcutaneous syringe RxNorm: 455949 1 M illiliter(s) Subcutaneous as doctor directed every 6 months 10/17/2021 No Stop Date Active Percocet 5 mg-325 mg tablet RxNorm: 7953014 Take 1 Table t(s) Oral four times a day 09/30/2021 10/29/2021 Inactive calcitonin (salmon) 200 unit/actuation nasal spray RxNorm: 3 74719 Take 1 [place] Nasal every day one spray in one nostril every day - alternate nostrils daily 09/28/2021 09/28/2021 Inactive Percocet 5 mg-325 mg tablet RxNorm: 2377772 Take 1 Table t(s) Oral Every 6 hrs as needed 09/22/2021 09/22/2021 Inactive Percocet 5 mg-325 mg tablet RxNorm: 0939638 Take 1 Table t(s) Oral Every 6 hrs as needed 09/22/2021 09/22/2021 Inactive estradiol 10 mcg vaginal tablet RxNorm: 569560 INSERT O NE TABLET VAGINALLY TWO TIMES PER WEEK 09/19/2021 03/05/2022 Inactive baclofen 20 mg tablet RxNorm: 268966 TAKE ONE TABLET BY MOUTH TWICE DAILY WITH FOOD OR MILK 08/08/2021 11/05/2021 Inactive This prescriptio n was filled on 04/06/2021. Any refills authorized will be placed on file. dicyclomine 20 mg tablet RxNorm: 471884 TAKE 1 TABLET B Y MOUTH THREE TIMES DAILY 07/25/2021 07/25/2021 Inactive This prescriptio n was filled on 06/30/2021. Any refills authorized will be placed on file. pantoprazole 40 mg tablet,delayed release RxNorm: 314984 TAKE 1 TABLET BY MOUTH ONCE DAILY 07/25/2021 07/25/2021 Inactive This prescriptio n was filled on 06/30/2021. Any refills authorized will be placed on file. metoprolol succinate ER 50 mg tablet,extended release 24 hr RxNorm: 323480 Take 1 Tablet(s) Oral every day 07/25/2021 07/25/2021 Inactive This prescription was filled on 06/30/2021. Any refills authorized will be placed on file. naproxen 500 mg tablet RxNorm: 446141 Take 1 Tablet(s) Oral two times a day 06/23/2021 10/20/2021 Inactive This prescription wa s filled on 05/31/2021. Any refills authorized will be placed on file. gabapentin 100 mg capsule RxNorm: 205946 Take 1 Capsule (s) Oral as directed 1 tab AM, 1 tab early afternoon, and 3 tab hs 06/01/2021 06/01/2021 Inac tive dicyclomine 20 mg tablet RxNorm: 314707 TAKE 1 TABLET B Y MOUTH THREE TIMES DAILY 05/31/2021 05/31/2021 Inactive cephalexin 500 mg tablet RxNorm: 627005 Take 1 Tablet(s) Oral t wo times a day 05/18/2021 05/24/2021 Inactive Diflucan 150 mg tablet RxNorm: 434372 Take 1 Tablet(s) Oral shoshana ry day 05/18/2021 05/24/2021 Inactive baclofen 20 mg tablet RxNorm: 807262 TAKE ONE TABLET BY MOUTH TWICE DAILY WITH FOOD OR MILK 04/29/2021 06/27/2021 Inactive This prescriptio n was filled on 04/06/2021. Any refills authorized will be placed on file. Tylenol Extra Strength 500 mg tablet RxNorm: 499242 2 T ablet(s) Oral three times a day 04/14/2021 No Stop Date Active montelukast 10 mg tablet RxNorm: 079159 TAKE 1 TABLET BY MOUTH AT BEDTIME 03/15/2021 05/25/2021 Inactive Singulair 10 mg tablet RxNorm: 079997 TAKE 1 TABLET BY MOUTH AT BEDTIME 03/14/2021 04/12/2021 Inactive Diflucan 150 mg tablet RxNorm: 681296 Take 1 Tablet(s) Oral shoshana ry day 03/11/2021 03/13/2021 Inactive Diflucan 150 mg tablet RxNorm: 761642 Take 1 Tablet(s) Oral shoshana ry day 03/11/2021 03/11/2021 Inactive baclofen 20 mg tablet RxNorm: 295323 TAKE ONE TABLET BY MOUTH TWICE DAILY WITH FOOD OR MILK 03/07/2021 03/07/2021 Inactive This prescriptio n was filled on 02/10/2021. Any refills authorized will be placed on file. fluticasone propionate 50 mcg/actuation nasal spray,suspensi on RxNorm: 5470796 USE TWO SPRAYS IN EACH NOSTRIL EVERY DAY 03/07/2021 07/04/2021 Inactiv e This prescription was filled on 02/10/2021. Any refills authorized will be placed on file. naproxen 500 mg tablet RxNorm: 383821 Take 1 Tablet(s) Oral two times a day 03/07/2021 03/07/2021 Inactive This prescription wa s filled on 02/10/2021. Any refills authorized will be placed on file. Augmentin 875 mg-125 mg tablet RxNorm: 716706 1 Tablet(s) Oral two times a day 02/18/2021 02/18/2021 Inactive Augmentin 875 mg-125 mg tablet RxNorm: 159443 1 Tablet(s) Oral two times a day 02/18/2021 02/24/2021 Inactive Keflex 500 mg capsule RxNorm: 665084 1 Capsule(s) Oral three ti mes a day 02/14/2021 02/17/2021 Inactive pantoprazole 40 mg tablet,delayed release RxNorm: 393666 TAKE 1 TABLET BY MOUTH ONCE DAILY 02/04/2021 07/03/2021 Inactive This prescriptio n was filled on 01/12/2021. Any refills authorized will be placed on file. gabapentin 400 mg capsule RxNorm: 027387 1 Capsule(s) Oral at b ed time 02/01/2021 05/01/2021 Inactive Vitamin D3 125 mcg (5,000 unit) tablet RxNorm: 736564 1 Tablet(s) Oral every day 01/25/2021 No Stop Date Active baclofen 20 mg tablet RxNorm: 572282 TAKE ONE TABLET BY MOUTH TWICE DAILY WITH FOOD OR MILK 01/05/2021 03/05/2021 Inactive This prescriptio n was filled on 12/13/2020. Any refills authorized will be placed on file. Colace 100 mg capsule RxNorm: 3996891 1 Capsule(s) Oral every day 0 01/03/2021 02/01/2021 Inactive Miralax 17 gram/dose oral powder RxNorm: 578297 17 Gram (s) Oral every day as needed 01/03/2021 01/03/2021 Inactive Colace 100 mg capsule RxNorm: 5006116 1 Capsule(s) Oral every day 0 01/03/2021 01/03/2021 Inactive Keflex 500 mg capsule RxNorm: 771466 1 Capsule(s) Oral three ti mes a day 12/22/2020 12/28/2020 Inactive gabapentin 300 mg capsule RxNorm: 760882 1 Capsule(s) Oral at b ed time 12/17/2020 01/15/2021 Inactive gabapentin 300 mg capsule RxNorm: 055799 1 Capsule(s) Oral at b ed time 12/17/2020 12/17/2020 Inactive prednisone 20 mg tablet RxNorm: 517164 2 Tablet(s) Oral every day 0 11/30/2020 11/29/2020 Inactive prednisone 20 mg tablet RxNorm: 717008 2 Tablet(s) Oral every day 0 11/30/2020 12/05/2020 Inactive Kenalog 40 mg/mL suspension for injection RxNorm: 6007580 1 Milliliter(s) Injection 11/23/2020 11/23/2020 Inactive Tessalon Perles 100 mg capsule RxNorm: 944176 2 Capsule (s) Oral three times a day as needed cough 11/19/2020 No Stop Date Active Augmentin 500 mg-125 mg tablet RxNorm: 124292 1 Tablet( s) Oral three times a day 11/17/2020 11/24/2020 Inactive Xyzal 5 mg tablet RxNorm: 398130 TAKE 1 TABLET BY MOUTH DAILY 11/1111/05/2021 Inactive naproxen 500 mg tablet RxNorm: 956888 1 Tablet(s) Oral two time s a day 11/08/2020 11/08/2020 Inactive baclofen 20 mg tablet RxNorm: 809866 TAKE ONE TABLET BY MOUTH TWICE DAILY WITH FOOD OR MILK 11/04/2020 01/02/2021 Inactive Kenalog 40 mg/mL suspension for injection RxNorm: 7485933 Milliliter(s) Injection 10/29/2020 10/29/2020 Inactive Flonase Allergy Relief 50 mcg/actuation nasal spray,suspensi on RxNorm: 0507819 2 [place] Nasal every day 10/27/2020 02/23/2021 Inactive baclofen 20 mg tablet RxNorm: 248904 TAKE 1 TABLET BY M OUTH TWICE DAILY WITH FOOD OR MILK 09/27/2020 10/26/2020 Inactive Flonase Allergy Relief 50 mcg/actuation nasal spray,suspensi on RxNorm: 3916505 2 [place] Nasal every day 09/06/2020 10/26/2020 Inactive Flonase Allergy Relief 50 mcg/actuation nasal spray,suspensi on RxNorm: 0745196 2 [place] Nasal every day 08/30/2020 09/05/2020 Inactive pantoprazole 40 mg tablet,delayed release RxNorm: 366782 TAKE 1 TABLET BY MOUTH ONCE DAILY 08/30/2020 08/30/2020 Inactive Xyzal 5 mg tablet RxNorm: 087937 TAKE 1 TABLET BY MOUTH DAILY 08/2011/10/2020 Inactive metoprolol succinate ER 50 mg tablet,extended release 24 hr RxNorm: 216825 1 Tablet(s) Oral every day 08/20/2020 08/20/2020 Inactive Xyzal 5 mg tablet RxNorm: 121854 TAKE 1 TABLET BY MOUTH DAILY 08/2008/19/2020 Inactive dicyclomine 20 mg tablet RxNorm: 291377 TAKE 1 TABLET B Y MOUTH THREE TIMES DAILY 07/29/2020 07/29/2020 Inactive This prescriptio n was filled on 07/06/2020. Any refills authorized will be placed on file. metoprolol succinate ER 25 mg tablet,extended release 24 hr RxNorm: 392754 1.5 Tablet(s) Oral every day 07/22/2020 08/19/2020 Inactive Cipro 500 mg tablet RxNorm: 089538 1 Tablet(s) Oral two times a day 07/16/2020 07/23/2020 Inactive baclofen 20 mg tablet RxNorm: 191334 TAKE 1 TABLET BY M OUTH TWICE DAILY WITH FOOD OR MILK 07/14/2020 09/12/2020 Inactive Vagifem 10 mcg vaginal tablet RxNorm: 803559 INSERT 1 TABLET TW O TIMES A WEEKPV 07/14/2020 12/29/2020 Inactive Vagifem 10 mcg vaginal tablet RxNorm: 497467 INSERT 1 TABLET TW O TIMES A WEEKPV 07/07/2020 07/13/2020 Inactive baclofen 20 mg tablet RxNorm: 916370 TAKE 1 TABLET BY M OUTH TWICE DAILY WITH FOOD OR MILK 06/30/2020 07/13/2020 Inactive tramadol 50 mg tablet RxNorm: 560466 Tablet(s) Oral dr quirino sneed 06/22/2020 No Stop Date Active estradiol 1 mg tablet RxNorm: 064123 1 Tablet(s) Oral every day 10/202006/17/2021 Inactive naproxen 500 mg tablet RxNorm: 382727 1 Tablet(s) Oral two time s a day 06/22/2020 11/07/2020 Inactive metoprolol succinate ER 25 mg tablet,extended release 24 hr RxNorm: 053815 1 Tablet(s) Oral every day 06/22/2020 07/21/2020 Inactive naproxen 500 mg tablet RxNorm: 305903 1 Tablet(s) Oral two time s a day 06/16/2020 06/21/2020 Inactive Flonase Allergy Relief 50 mcg/actuation nasal spray,suspensi on RxNorm: 8195474 2 [place] Nasal every day 05/31/2020 08/28/2020 Inactive dicyclomine 20 mg tablet RxNorm: 478312 TAKE 1 TABLET B Y MOUTH THREE TIMES DAILY 05/31/2020 07/28/2020 Inactive This prescriptio n was filled on 05/06/2020. Any refills authorized will be placed on file. prednisone 20 mg tablet RxNorm: 133871 2 Tablet(s) Oral every day 1 07/28/2019 05/26/2020 Inactive prednisone 20 mg tablet RxNorm: 471860 2 Tablet(s) Oral every day 1 07/28/2019 06/01/2020 Inactive Keflex 500 mg capsule RxNorm: 047934 1 Capsule(s) Oral three ti mes a day 05/24/2020 05/31/2020 Inactive naproxen 500 mg tablet RxNorm: 689539 1 Tablet(s) Oral two time s a day 05/10/2020 05/14/2020 Inactive dicyclomine 20 mg tablet RxNorm: 178818 TAKE 1 TABLET B Y MOUTH THREE TIMES DAILY 04/07/2020 05/30/2020 Inactive Singulair 10 mg tablet RxNorm: 352432 TAKE 1 TABLET BY MOUTH AT BEDTIME 04/07/2020 04/07/2020 Inactive meclizine 25 mg tablet RxNorm: 594649 1 Tablet(s) Oral three times a day as needed Dizziness 04/05/2020 No Stop Date Active Tessalon Perles 100 mg capsule RxNorm: 703374 2 Capsule (s) Oral three times a day as needed cough 03/22/2020 04/05/2020 Inactive Xyzal 5 mg tablet RxNorm: 291746 1 Tablet(s) Oral every day 020 07/20/2020 Inactive prednisone 20 mg tablet RxNorm: 204524 2 Tablet(s) Oral every day 1 03/26/2020 Inactive naproxen 500 mg tablet RxNorm: 021289 1 Tablet(s) Oral two time s a day 03/17/2020 03/22/2020 Inactive mupirocin 2 % topical ointment RxNorm: 196322 1 Application Top ical as directed 03/15/2020 04/05/2020 Inactive naproxen 500 mg tablet RxNorm: 216887 1 Tablet(s) Oral two time s a day 03/11/2020 03/16/2020 Inactive Kenalog 40 mg/mL suspension for injection RxNorm: 3789475 1 Milliliter(s) Injection 03/11/2020 03/11/2020 Inactive Zithromax Z-David 250 mg tablet RxNorm: 714116 Tablet(s) Oral as directed 03/11/2020 04/05/2020 Inactive baclofen 20 mg tablet RxNorm: 691772 TAKE 1 TABLET BY M OUT TWICE DAILY WITH FOOD OR MILK 03/09/2020 06/29/2020 Inactive Toviaz 4 mg tablet,extended release RxNorm: 344729 1 Tablet(s) Oral every day 02/17/2020 04/05/2020 Inactive Toviaz 4 mg tablet,extended release RxNorm: 706095 1 Tablet(s) Oral every day 02/17/2020 09/14/2020 Inactive dicyclomine 20 mg tablet RxNorm: 740977 1 Tablet(s) Oral three times a day 02/13/2020 04/06/2020 Inactive Flonase Allergy Relief 50 mcg/actuation nasal spray,suspensi on RxNorm: 4298773 2 [place] Nasal every day 02/13/2020 05/30/2020 Inactive ceftriaxone 500 mg solution for injection RxNorm: 1344659 Injection 01/14/2020 01/14/2020 Inactive Cipro 500 mg tablet RxNorm: 964846 1 Tablet(s) Oral two times a day 01/14/2020 01/24/2020 Inactive ceftriaxone 500 mg solution for injection RxNorm: 2972928 Injection 12/30/2019 12/30/2019 Inactive prednisone 20 mg tablet RxNorm: 006912 2 Tablet(s) Oral every day 0 12/30/2019 01/03/2020 Inactive Singulair 10 mg tablet RxNorm: 146667 1 Tablet(s) Oral every ni ght at bedtime 12/30/2019 04/06/2020 Inactive Keflex 500 mg capsule RxNorm: 334386 1 Capsule(s) Oral three ti mes a day 12/30/2019 01/09/2020 Inactive Vagifem 10 mcg vaginal tablet RxNorm: 477425 INSERT 1 T ABLET TWO TIMES A WEEK PV 12/15/2019 05/30/2020 Inactive pantoprazole 40 mg tablet,delayed release RxNorm: 347399 TAKE 1 TABLET BY MOUTH ONCE DAILY 12/15/2019 06/11/2020 Inactive baclofen 20 mg tablet RxNorm: 274071 1T PO BID WITH FOOD OR MILK 03/08/2020 Inactive prednisone 20 mg tablet RxNorm: 469895 2 Tablet(s) Oral every day 0 12/02/2019 12/07/2019 Inactive Cipro 500 mg tablet RxNorm: 241698 1 Tablet(s) Oral two times a day add on to the 7 days for a total of 10 days 12/02/2019 12/05/2019 Inactive Macrobid 100 mg capsule RxNorm: 751770 1 Capsule(s) Oral two ti mes a day 11/20/2019 11/27/2019 Inactive Macrobid 100 mg capsule RxNorm: 693827 1 Capsule(s) Oral two ti mes a day 11/20/2019 11/19/2019 Inactive cranberry concentrate-ascorbic acid 4,200 mg-20 mg capsule R xNorm: 1 Capsule(s) Oral every day 11/06/2019 No Stop Date Active Claritin 10 mg tablet RxNorm: 556118 1 Tablet(s) Oral every day No Stop Date Active biotin 5,000 mcg disintegrating tablet RxNorm: 1323000 1 Tablet(s) Oral every day 11/06/2019 No Stop Date Active Fetzima 120 mg capsule,extended release RxNorm: 9383151 1 Capsule(s) Oral every day 11/06/2019 No Stop Date Active Vitamin C 1,000 mg tablet RxNorm: 551674 2 Tablet(s) Oral every day 11/06/2019 No Stop Date Active Calcium 500 500 mg calcium (1,250 mg) tablet RxNorm: 222445 1 Tablet(s) Oral every day 11/06/2019 No Stop Date Active Depakote ER 500 mg tablet,extended release RxNorm: 6059577 2 Tablet(s) Oral every night at bedtime 11/06/2019 No Stop Date Active hydroxyzine HCl 10 mg tablet RxNorm: 371656 3 Tablet(s) Oral as needed 11/06/2019 No Stop Date Active Voltaren 1 % topical gel RxNorm: 988024 Topical as needed 0 No Stop Date Active Benadryl Allergy 25 mg tablet RxNorm: 0253041 2 Tablet(s ) Oral every night at bedtime 11/06/2019 06/21/2020 Inactive Vagifem 10 mcg vaginal tablet RxNorm: 887616 Tablet(s) Vaginal 2 times weekly 11/06/2019 12/14/2019 Inactive pantoprazole 40 mg tablet,delayed release RxNorm: 532122 1 Tablet(s) Oral every day 11/06/2019 12/14/2019 Inactive estradiol 2 mg tablet RxNorm: 788275 1 Tablet(s) Oral every day 06/21/2020 Inactive Flonase Allergy Relief 50 mcg/actuation nasal spray,suspensi on RxNorm: 3755953 1 [place] Nasal every day 11/06/2019 02/12/2020 Inactive ibuprofen 600 mg tablet RxNorm: 242177 1 Tablet(s) Oral as needed 0 11/06/2019 06/21/2020 Inactive Vitamin D3 50 mcg (2,000 unit) tablet RxNorm: 048429 2 Tablet(s ) Oral every day 11/06/2019 01/24/2021 Inactive baclofen 20 mg tablet RxNorm: 919640 1 Tablet(s) Oral two times a day 11/06/2019 12/14/2019 Inactive Boniva 150 mg tablet RxNorm: 526663 1 Tablet(s) Oral monthly 201906/21/2020 Inactive dicyclomine 20 mg tablet RxNorm: 780524 1 Tablet(s) Oral three times a day 11/06/2019 02/12/2020 Inactive Miralax 17 gram/dose oral powder RxNorm: 777810 Oral as needed 10/1701/03/2021 Inactive B Complex-Vitamin B12 oral RxNorm: 95165 oral 11/06/2019 Active Reclast intravenous RxNorm: 177144 intravenous 06/22/2020 Ac tive Probiotic oral RxNorm: 6205 oral 11/06/2019 Active Ocuvite Adult 50 Plus oral RxNorm: oral 11/06/2019 Ac tive Multivitamin 50 Plus oral RxNorm: oral 11/06/2019 Act mitchell Medication Administered Medication Codes Instructions Start Date Status ceftriaxone 500 mg solution for injection RxNorm: 5203303 03/15/2022 No longer Active ceftriaxone 500 mg solution for injection RxNorm: 1374907 03/14/2022 No longer Active ceftriaxone 500 mg solution for injection RxNorm: 0702475 03/13/2022 No longer Active ceftriaxone 500 mg solution for injection RxNorm: 5749335 03/10/2022 No longer Active ceftriaxone 500 mg solution for injection RxNorm: 2100792 03/09/2022 No longer Active ceftriaxone 500 mg solution for injection RxNorm: 9062132 10/27/2021 No longer Active Kenalog 40 mg/mL suspension for injection RxNorm: 6572015 1Milli liter 11/23/2020 No longer Active Kenalog 40 mg/mL suspension for injection RxNorm: 6054052 Millilite r 10/29/2020 No longer Active Kenalog 40 mg/mL suspension for injection RxNorm: 1177670 1Milli liter 03/11/2020 No longer Active ceftriaxone 500 mg solution for injection RxNorm: 9000582 01/14/2020 No longer Active ceftriaxone 500 mg solution for injection RxNorm: 3816595 12/30/2019 No longer Active Immunizations Vaccine Codes [...] CULTURE See Note 05/23/2021 Unknown Comp Metabolic Dld873 NA 128 mEq/L 05/18/2021 Unkn own Comp Metabolic Wvp405 K 5.0 mEq/L 05/18/2021 Unkn own Comp Metabolic Dzt404 CL 93 mEq/L 05/18/2021 Unkn own Comp Metabolic Hmh778 CO2 29.0 mEq/L 05/18/2021 Unk nown Comp Metabolic Hat163 ANION GAP 11 05/18/2021 Unkn own Comp Metabolic Fgm443 GLUCOSE 80 mg/dL 05/18/2021 Unkn own Comp Metabolic Jdf041 Creat 0.7 mg/dL 05/18/2021 Unkn own Comp Metabolic Yee532 eGFR 87 ml/min/1.73m2 05/18/20 21 Unknown Comp Metabolic Ssx345 BUN 9 mg/dL 05/18/2021 Unkn own Comp Metabolic Pdj113 B/C Ratio 12.5 Ratio 05/18/2021 Unk nown Comp Metabolic Ydx559 CALCIUM 8.7 mg/dL 05/18/2021 Unkn own Comp Metabolic Bbt448 ALK PHOS 65 U/L 05/18/2021 Unkn own Comp Metabolic Qxi736 AST(SGOT) 9 U/L 05/18/2021 Unkn own Comp Metabolic Anx617 ALT(SGPT) 7 U/L 05/18/2021 Unkn own Comp Metabolic Pvj700 BILI T 0.3 mg/dL 05/18/2021 Unkn own Comp Metabolic Lxv704 ALBUMIN 4.0 g/dL 05/18/2021 Unkn own Comp Metabolic Men620 TPRO 6.0 g/dL 05/18/2021 Unkn own Comp Metabolic Eav427 GLOB 2.1 g/dL 05/18/2021 Unkn own Comp Metabolic Ang805 A/G Ratio 1.9 Ratio 05/18/2021 Unkn own Comp Metabolic Ssd715 Osmo 255 mOsmo 05/18/2021 Unkn own C-Reactive Protein Qnt Crqnt CRP 0.1 mg/dl 2020 Unknown Sed Rate Ord21 ESR 5 mm/hr 04/15/2021 Unknown Ra Factor Rek475 RA FACTOR <10 IU/ml 04/15/2021 Unknown CULTURE, [...] Antinuclear Antibody Negative 06/28/2020 Unknown Ra Factor Hqa344 RA FACTOR <10 IU/ml 06/25/2020 Unknown C-Reactive [...] 01/14/20 20 Unknown Cbc With Differential Ord2 Harmon% 7.8 % 01/14/20 20 Unknown Cbc With [...] K/ul 020 Unknown Cbc With Differential Ord2 Harmon ABS# 1.0 K/ul 01/14/20 20 Unknown Cbc With Differential Ord2 Eos ABS# 0.1 K/ul 01/14/20 20 Unknown Cbc With Differential Ord2 Baso ABS# 0.1 K/ul 01/14/20 20 Unknown Comp Metabolic Pur767 NA 130 mEq/L 01/14/2020 Unkn own Comp Metabolic Vod390 K 4.6 mEq/L 01/14/2020 Unkn own Comp Metabolic Kkg973 CL 92 mEq/L 01/14/2020 Unkn own Comp Metabolic Jsv182 CO2 31.0 mEq/L 01/14/2020 Unk nown Comp Metabolic Aer016 ANION GAP 12 01/14/2020 Unkn own Comp Metabolic Zat018 GLUCOSE 81 mg/dL 01/14/2020 Unkn own Comp Metabolic Jzi633 Creat 0.8 mg/dL 01/14/2020 Unkn own Comp Metabolic Afx604 eGFR 77 ml/min/1.73m2 01/14/20 20 Unknown Comp Metabolic Avp287 BUN 12 mg/dL 01/14/2020 Unkn own Comp Metabolic Rsc519 B/C Ratio 15.0 Ratio 01/14/2020 Unk nown Comp Metabolic Abj381 CALCIUM 9.2 mg/dL 01/14/2020 Unkn own Comp Metabolic Azl148 ALK PHOS 71 U/L 01/14/2020 Unkn own Comp Metabolic Llh960 AST(SGOT) 13 U/L 01/14/2020 Unkn own Comp Metabolic Wcv653 ALT(SGPT) 11 U/L 01/14/2020 Unkn own Comp Metabolic Umi289 BILI T 0.4 mg/dL 01/14/2020 Unkn own Comp Metabolic Oav018 ALBUMIN 3.9 g/dL 01/14/2020 Unkn own Comp Metabolic Jtz047 TPRO 6.2 g/dL 01/14/2020 Unkn own Comp Metabolic Cdf501 GLOB 2.3 g/dL 01/14/2020 Unkn own Comp Metabolic Mwq268 A/G Ratio 1.7 Ratio 01/14/2020 Unkn own Comp Metabolic Vmk974 Osmo 260 mOsmo 01/14/2020 Unkn own CULTURE, [...] CPT-4: G0444 07/24/2022 THER/PROPH/DIAG INJ SC/IM CPT-4: 27439 03/15/2022 ROCEPHIN, PER 250 MG CPT-4: J0696 03/15/2022 THER/PROPH/DIAG INJ SC/IM CPT-4: 15746 03/14/2022 ROCEPHIN, PER 250 MG CPT-4: J0696 03/14/2022 THER/PROPH/DIAG INJ SC/IM CPT-4: 91196 03/13/2022 ROCEPHIN, PER 250 MG CPT-4: J0696 03/13/2022 THER/PROPH/DIAG INJ SC/IM CPT-4: 99049 03/10/2022 ROCEPHIN, PER 250 MG CPT-4: J0696 03/10/2022 THER/PROPH/DIAG INJ SC/IM CPT-4: 66907 03/09/2022 ROCEPHIN, PER 250 MG CPT-4: J0696 03/09/2022 THER/PROPH/DIAG INJ SC/IM CPT-4: 82615 10/27/2021 ROCEPHIN, PER 250 MG CPT-4: J0696 10/27/2021 URINALYSIS NONAUTO W/O SCOPE CPT-4: 27130 05/18/2021 IIV4 VACC NO PRSV 0.5 ML IM CPT-4: 54475 04/08/2021 IIV4 VACC NO PRSV 0.5 ML IM CPT-4: 95671 04/08/2021 ADMIN INFLUENZA VIRUS VAC CPT-4: G0008 04/08/2021 TRIAMCINOLONE ACET INJ NOS 10 mg CPT-4: J3301 021 DRAIN/INJECT JOINT/BURSA CPT-4: 52365 11/17/2020 TRIAMCINOLONE ACET INJ NOS 10 mg CPT-4: J3301 021 IIV4 VACC NO PRSV 0.5 ML IM CPT-4: 40892 04/07/2020 ADMIN INFLUENZA VIRUS VAC CPT-4: G0008 04/07/2020 IIV4 VACC NO PRSV 0.5 ML IM CPT-4: 65089 04/07/2020 URINALYSIS NONAUTO W/O SCOPE CPT-4: 05644 03/16/2020 TRIAMCINOLONE ACET INJ NOS 10 mg CPT-4: J3301 020 THER/PROPH/DIAG INJ SC/IM CPT-4: 19202 03/11/2020 THER/PROPH/DIAG INJ SC/IM CPT-4: 82990 01/14/2020 ROCEPHIN, PER 250 MG CPT-4: J0696 01/14/2020 ROCEPHIN, PER 250 MG CPT-4: J0696 12/30/2019 THER/PROPH/DIAG INJ SC/IM CPT-4: 52543 12/30/2019 Vital Signs Date Vital 10/17/2022 Blood Pressure 1: 132/80 Code: 8480-6 Heart Rate 1: 96 bpm Height: 5'3" Code: 8302-2 SpO2: 96% Temperature: 36.1 (C) / 97.0 (F) 07/24/2022 Blood Pressure 1: 162/78 Code: 8480-6 BMI: 28.7 Code: 08584-4 Heart Rate 1: 89 bpm Height: 5'3" Code: 8302-2 SpO2: 100% Weight: 162 lb s Code: 39374-9 07/03/2022 Blood Pressure 1: 138/70 Code: 8480-6 Heart Rate 1: 72 bpm Height: Code: 8302-2 Respiratory Rate: 16 bpm SpO2: 95% Weight: 163 lbs Code: 63981-2 03/09/2022 Blood Pressure 1: 142/84 Code: 8480-6 BMI: 29.8 Code: 02140-3 Heart Rate 1: 87 bpm Height: 5'3" Code: 8302-2 SpO2: 98% Temperature: 3 6.3 (C) / 97.3 (F) Weight: 168 lbs Code: 24926-3 10/27/2021 Blood Pressure 1: 134/78 Code: 8480-6 BMI: 28.9 Code: 23125-3 Heart Rate 1: 88 bpm Height: 5'3" Code: 8302-2 SpO2: 97% Temperature: 3 6.1 (C) / 96.9 (F) Weight: 163 lbs Code: 61227-3 09/28/2021 Blood Pressure 1: 142/84 Code: 8480-6 BMI: 28.9 Code: 67339-3 Heart Rate 1: 67 bpm Height: 5'3" Code: 8302-2 SpO2: 96% Temperature: 3 5.9 (C) / 96.7 (F) Weight: 163 lbs Code: 11877-9 09/02/2021 Blood Pressure 1: 142/84 Code: 8480-6 BMI: 28.9 Code: 71888-1 Heart Rate 1: 95 bpm Height: 5'3" Code: 8302-2 SpO2: 99% Temperature: 3 6.3 (C) / 97.4 (F) Weight: 163 lbs Code: 69788-8 06/01/2021 Blood Pressure 1: 126/80 Code: 8480-6 BMI: 28.0 Code: 51892-0 Heart Rate 1: 84 bpm Height: 5'3" Code: 8302-2 SpO2: 96% Temperature: 3 6.2 (C) / 97.1 (F) Weight: 158 lbs Code: 55744-7 05/18/2021 Blood Pressure 1: 152/76 Code: 8480-6 Heart Rate 1: 68 bpm Height: Code: 8302-2 Temperature: 36.3 (C) / 97.3 (F) Weight: Code: 60292- 7 03/03/2021 Blood Pressure 1: 132/80 Code: 8480-6 Heart Rate 1: 88 bpm Height: Code: 8302-2 Weight: Code: 32704-7 02/01/2021 Blood Pressure 1: 146/82 Code: 8480-6 Heart Rate 1: 84 bpm Height: 5'3" Code: 8302-2 Respiratory Rate: 16 bpm SpO2: 98% Temperature: 36 .2 (C) / 97.2 (F) Weight: Code: 78091-1 11/17/2020 Blood Pressure 1: 140/80 Code: 8480-6 Heart Rate 1: 72 bpm Height: 5'3" Code: 8302-2 SpO2: 100% Temperature: 36.1 (C) / 97.0 (F) Weight: Code: 55538-5 10/29/2020 Blood Pressure 1: 126/74 Code: 8480-6 BMI: 28.7 Code: 52941-7 Heart Rate 1: 86 bpm Height: 5'3" Code: 8302-2 SpO2: 99% Temperature: 3 6.3 (C) / 97.3 (F) Weight: 162 lbs Code: 85966-3 09/22/2020 Blood Pressure 1: 138/72 Code: 8480-6 BMI: 28.9 Code: 67351-7 Heart Rate 1: 74 bpm Height: 5'3" Code: 8302-2 Temperature: 35.9 (C) / 96.7 (F) Weight: 163 lbs Code: 51030-1 08/20/2020 Blood Pressure 1: 148/80 Code: 8480-6 BMI: 28.2 Code: 84402-7 Heart Rate 1: 94 bpm Height: 5'3" Code: 8302-2 SpO2: 95% Temperature: 3 6.3 (C) / 97.3 (F) Weight: 159 lbs Code: 10381-8 07/22/2020 Blood Pressure 1: 160/80 Code: 8480-6 Bl ood Pressure 1: 142/76 Code: 8480-6 BMI: 27.8 Code: 56814-6 Heart Rate 1: 84 bpm Height: 5'3" Code: 8302-2 Respiratory Rate: 18 bpm SpO2: 97% Temperature: 36.4 (C) / 97.5 (F) We ight: 157 lbs Code: 04357-5 07/16/2020 Blood Pressure 1: 140/78 Code: 8480-6 BMI: 27.8 Code: 17508-7 Heart Rate 1: 86 bpm Height: 5'3" Code: 8302-2 SpO2: 97% Temperature: 3 6.3 (C) / 97.3 (F) Weight: 157 lbs Code: 17450-5 06/22/2020 Blood Pressure 1: 162/84 Code: 8480-6 BMI: 27.8 Code: 00419-7 Heart Rate 1: 93 bpm Height: 5'3" Code: 8302-2 Respiratory Rate: 16 bpm SpO2: 100% Temperature: 36.2 (C) / 97.1 (F) Weight: 157 lbs Code: 81473-7 05/24/2020 Height: Code: 8302-2 Weight: Code: 294 63-7 04/05/2020 Blood Pressure 1: 132/74 Code: 8480-6 BMI: 26.9 Code: 25002-2 Heart Rate 1: 74 bpm Height: 5'3" Code: 8302-2 Weight: 152 lbs Code: 21817 -7 03/22/2020 Height: Code: 8302-2 Weight: Code: 294 63-7 03/16/2020 Height: Code: 8302-2 Weight: Code: 294 63-7 03/15/2020 Blood Pressure 1: 140/76 Code: 8480-6 Heart Rate 1: 82 bpm Height: 5'3" Code: 8302-2 SpO2: 97% Temperature: 37.2 (C) / 99.0 (F) 03/11/2020 BMI: 26.9 Code: 69301-9 Heart Rate 1: 80 bpm Hei ght: 5'3" Code: 8302-2 Weight: 152 lbs Code: 02047-4 02/17/2020 Blood Pressure 1: 134/72 Code: 8480-6 BMI: 27.3 Code: 85297-8 Heart Rate 1: 84 bpm Height: 5'3" Code: 8302-2 Respiratory Rate: 16 bpm SpO2: 96% Temperature: 36.2 (C) / 97.1 (F) Weight: 154 lbs Code: 59315-9 01/14/2020 Blood Pressure 1: 122/74 Code: 8480-6 Heart Rate 1: 87 bpm Height: Code: 8302-2 SpO2: 99% Temperature: 36.4 (C) / 97.6 (F) Weight: Code: 66695-1 12/30/2019 Height: Code: 8302-2 Weight: Code: 294 63-7 12/02/2019 Blood Pressure 1: 148/86 Code: 8480-6 BMI: 27.3 Code: 09479-9 Heart Rate 1: 96 bpm Height: 5'3" Code: 8302-2 SpO2: 98% Temperature: 3 7.2 (C) / 98.9 (F) Weight: 154 lbs Code: 99617-2 11/06/2019 Blood Pressure 1: 146/78 Code: 8480-6 BMI: 27.3 Code: 38108-9 Heart Rate 1: 94 bpm Height: 5'3" Code: 8302-2 SpO2: 98% Temperature: 3 6.3 (C) / 97.3 (F) Weight: 154 lbs Code: 75286-9 Functional Status No Functional Status data Reason [...] Encounter Performer Location Location Address Codes Date ([id number]) 20647 EST. PATIENT, LEVEL III Diagnosis: Compression fracture of L3 vertebra, initial encounter[ICD10: S32.030A] Diagnosis: Compression fracture of L5 vertebra, initial encounter[ICD10: S32.050A] Ara Demarco MD, [facility] [address] [place] [address] CPT-4: 26521 10/17/2022 ([id number]) 96482 EST. PATIENT, LEVEL III Diagnosis: Essential (primary) hypertension[ICD10: I10] Rubina Demarco MD, [facility] [address] [place] [address] CPT-4: 9921 3 07/03/2022 ([id number]) 15561 EST. PATIENT, LEVEL IV Diagnosis: Essential (primary) hypertension[ICD10: I10] Diagnosis: Dysuria[ICD10: R30.0] Diagnosis: Urinary tract infection[ICD10: N39.0] Rubina Demarco MD, [facility] [address] [place] [address] CPT-4: 9921 4 03/09/2022 ([id number]) 54034 EST. PATIENT, LEVEL I Diagnosis: Urinary tract infection[ICD10: N39.0] Rubina Demarco MD, [facility] [address] [place] [address] CPT-4: 9921 1 12/02/2021 ([id number]) 59262 EST. PATIENT, LEVEL IV Diagnosis: Essential (primary) hypertension[ICD10: I10] Diagnosis: Non-traumatic compression fracture of L5 lumbar vertebra with routine healing, subsequent encounter[ICD10: M48.56XD] Diagnosis: Other chronic pain[ICD10: G89.29] Diagnosis: Dysuria[ICD10: R30.0] Diagnosis: Urinary tract infection[ICD10: N39.0] Rubina Demarco MD, [facility] [address] [place] [address] CPT-4: 9921 4 10/27/2021 ([id number]) 94473 EST. PATIENT, LEVEL IV Diagnosis: Essential (primary) hypertension[ICD10: I10] Diagnosis: Chronic back pain[ICD10: M54.9] Diagnosis: Nontraumatic compression fracture of L5 vertebra, initial encounter[ICD10: M48.56XA] Rubina Demarco MD, [facility] [address] [place] [address] CPT-4: 93007 09/28/2021 ([id number]) 62244 EST. PATIENT, LEVEL III Diagnosis: Other allergic rhinitis[ICD10: J30.89] Ara Stewart MD, [facility] [address] [place] [address] CPT-4: 9921 3 09/02/2021 ([id number]) 59648 EST. PATIENT, LEVEL IV Diagnosis: Essential (primary) hypertension[ICD10: I10] Diagnosis: Other chronic pain[ICD10: G89.29] Diagnosis: Chronic idiopathic constipation[ICD10: K59.04] Diagnosis: Hyponatremia[ICD10: E87.1] Rubina Demarco MD, [facility] [address] [place] [address] CPT-4: 77675 06/01/2021 ([id number]) 54812 EST. PATIENT, LEVEL IV Diagnosis: Essential (primary) hypertension[ICD10: I10] Diagnosis: Age-related osteoporosis without current pathological fracture[ICD10: M81.0] Diagnosis: Dysuria[ICD10: R30.0] Diagnosis: Oral candidiasis[ICD10: B37.0] Whitney Demarco MD, [facility] [address] [place] [address] CPT-4: 93855 05/18 ([id number]) Miscellaneous no charge Diagnosis: Laceration of right lower leg[ICD10: S81.811A] Rubina Demarco MD, [facility] [address] [place] [address] CPT-4: 9999 9 03/11/2021 ([id number]) 43868 EST. PATIENT, LEVEL I Diagnosis: Laceration of left lower leg[ICD10: S81.812A] Diagnosis: Laceration of right lower leg[ICD10: S81.811A] Rubina Demarco MD, [facility] [address] [place] [address] CPT-4: 9921 1 03/04/2021 ([id number]) 34368 EST. PATIENT, LEVEL III Diagnosis: Laceration of right lower leg[ICD10: S81.811A] Diagnosis: Laceration of left lower leg[ICD10: S81.812A] Ara Demarco MD, [facility] [address] [place] [address] CPT-4: 9921 3 03/03/2021 ([id number]) 24057 EST. PATIENT, LEVEL IV Diagnosis: Essential (primary) hypertension[ICD10: I10] Diagnosis: Low back pain[ICD10: M54.5] Diagnosis: Chronic back pain[ICD10: M54.9] Rubina wills MD, [facility] [address] [place] [address] CPT-4: 9921 4 02/01/2021 02811 EST. PATIENT, LEVEL III Diagnosis: Pain of right sacroiliac joint[ICD10: M53.3] Diagnosis: Chronic back pain[ICD10: M54.9] Samara Demarco MD , [facility] [address] [place] [address] CPT-4: 65965 11/17 ([id number]) 68848 EST. PATIENT, LEVEL III Diagnosis: Pain of left sacroiliac joint[ICD10: M53.3] Diagnosis: Low back pain[ICD10: M54.5] Diagnosis: Nicotine dependence, cigarettes, uncomplicated[ICD10: F17.210] Ara Demarco MD, [facility] [address] [place] [address] CPT-4: 43575 10/29/2020 ([id number]) 42324 EST. PATIENT, LEVEL IV Diagnosis: Essential (primary) hypertension[ICD10: I10] Diagnosis: Weakness[ICD10: R53.1] Diagnosis: Generalized osteoarthritis[ICD10: M15.9] Diagnosis: Fibromyalgia[ICD10: M79.7] Rubina Demarco MD, [facility] [address] [place] [address] CPT-4: 23929 09/22/2020 ([id number]) 81980 EST. PATIENT, LEVEL III Diagnosis: Essential (primary) hypertension[ICD10: I10] Ara Demarco MD, [facility] [address] [place] [address] CPT-4: 9921 3 08/20/2020 ([id number]) 13540 EST. PATIENT, LEVEL III Diagnosis: Essential (primary) hypertension[ICD10: I10] Rubina Demarco MD, [facility] [address] [place] [address] CPT-4: 9921 3 07/22/2020 ([id number]) 15932 EST. PATIENT, LEVEL III Diagnosis: Dysuria[ICD10: R30.0] Diagnosis: Benign paroxysmal positional vertigo, bilateral[ICD10: H81.13] Ara Demarco MD, [facility] [address] [place] [address] CPT-4: 55928 07/16/2020 ([id number]) 50100 EST. PATIENT, LEVEL IV Diagnosis: Essential (primary) hypertension[ICD10: I10] Diagnosis: Chronic back pain[ICD10: M54.9] Diagnosis: Weakness[ICD10: R53.1] Diagnosis: Fibromyalgia[ICD10: M79.7] Diagnosis: Generalized osteoarthritis[ICD10: M15.9] Diagnosis: Breast pain, left[ICD10: N64.4] Rubina wills MD, [facility] [address] [place] [address] CPT-4: 9921 4 06/22/2020 ([id number]) 85905 EST. PATIENT, LEVEL III Diagnosis: Cough[ICD10: R05] Diagnosis: Acute recurrent maxillary sinusitis[ICD10: J01.01] Ara Boland [facility] [address] [place] [address] CPT-4: 9921 3 05/24/2020 17372 EST. PATIENT, LEVEL III Diagnosis: Benign paroxysmal positional vertigo, bilateral[ICD10: H81.13] Diagnosis: Weakness[ICD10: R53.1] Diagnosis: Imbalance[ICD10: R26.89] Diagnosis: Frequent falls[ICD10: R29.6] Samara Demarco MD, [facility] [address] [place] [address] CPT-4: 93684 04/05/2020 27377 EST. PATIENT, LEVEL III Diagnosis: Skin tear of right forearm without complication, subsequent encounter[ICD10: S51.811D] Diagnosis: Other allergic rhinitis[ICD10: J30.89] Diagnosis: Rib pain on left side[ICD10: R07.81] Samara Demarco MD, [facility] [address] [place] [address] CPT-4: 9921 3 03/22/2020 95052 EST. PATIENT, LEVEL II Diagnosis: Skin tear of right forearm without complication, subsequent encounter[ICD10: S51.811D] Diagnosis: Dysuria[ICD10: R30.0] Samara Demarco MD, [facility] [address] [place] [address] CPT-4: 47614 03/16/2020 19932 EST. PATIENT, LEVEL III Diagnosis: Right shoulder pain[ICD10: M25.511] Diagnosis: Right knee pain[ICD10: m25.561] Diagnosis: Skin tear of right forearm without complication[ICD10: S51.811A] Samara Demarco MD, [facility] [address] [place] [address] CPT-4: 17036 03/15/2020 33963 EST. PATIENT, LEVEL IV Diagnosis: Other acute sinusitis[ICD10: J01.80] Diagnosis: Other allergic rhinitis[ICD10: J30.89] Diagnosis: Right knee pain[ICD10: m25.561] Samara Demarco MD , [facility] [address] [place] [address] CPT-4: 61705 03/11 ([id number]) 29603 EST. PATIENT, LEVEL IV Diagnosis: Gastro-esophageal reflux disease without esophagitis[ICD10: K21.9] Diagnosis: Age-related osteoporosis without current pathological fracture[ICD10: M81.0] Diagnosis: Chronic back pain[ICD10: M54.9] Rubina wills MD, [facility] [address] [place] [address] CPT-4: 9921 4 02/17/2020 50741 EST. PATIENT, LEVEL III Diagnosis: Dysuria[ICD10: R30.0] Diagnosis: Hematuria[ICD10: R31.9] Samara Demarco MD, [facility] [address] [place] [address] CPT-4: 12457 01/14/2020 17898 EST. PATIENT, LEVEL III Diagnosis: Dysuria[ICD10: R30.0] Diagnosis: Other allergic rhinitis[ICD10: J30.89] Samara Stewart MD, [facility] [address] [place] [address] CPT-4: 9921 3 12/30/2019 30057 EST. PATIENT, LEVEL IV Diagnosis: Other acute sinusitis[ICD10: J01.80] Diagnosis: Other allergic rhinitis[ICD10: J30.89] Diagnosis: Cough[ICD10: R05] Samara Demarco MD, [facility] [address] [place] [address] CPT-4: 82314 12/02/2019 ([id number]) OFFICE VISIT, NEW - LEVEL 4 Diagnosis: Age-related osteoporosis without current pathological fracture[ICD10: M81.0] Diagnosis: Nasal sinus congestion[ICD10: R09.81] Diagnosis: Other chronic pain[ICD10: G89.29] Diagnosis: Chronic back pain[ICD10: M54.9] Diagnosis: Gastro-esophageal reflux disease without esophagitis[ICD10: K21.9] Rubina Demarco MD, [facility] [address] [place] [address] CPT-4: 95603 11/06/2019 Plan of Care Planned Activity Notes Codes Status Date Visit Plan: Compression fractures of L3 and L5 - patient is interested in kyphoplasty due to increased pain - will order MRI lumbar spine and then plan to refer to [facility] for evaluation- refill percocet to use prn as directed - patient verbalized understanding of plan. 10/17/2022 Appointment: Ara Boland WPtel: [facility] [address] (30 min) Complex 10/17/2022 Patient Education: [...] patient's DME 07/24/2022 Appointment: Ara Boland WPtel: [facility] [facility] - Annual Wellness Visit 11/2022 [...] well. 07/03/2022 Appointment: [facility] [address] [facility] (15 min) Moderate 07/03/2022 Patient Education: Patient [...] pharmacy. 03/09/2022 Appointment: [facility] [address] [facility] (30 min) Complex 03/09/2022 Patient Education: Patient [...] needed. 09/28/2021 Appointment: Rubina Demarco WPtel: [phone] [phone] (15 min) Moderate 09/28/2021 Patient Education: Patient [...] spray. 09/02/2021 Appointment: Ara Boland WPtel: [phone] [phone] (30 min) Complex 09/02/2021 Patient Education: [...] week 06/01/2021 Appointment: [facility]el[facility] [phone] [phone] [place] (15 min) Moderate 06/01/2021 Patient Education: [...] calcium adequate. 05/18/2021 Appointment: Whitney Shel[facility] [phone] [phone] [place] (30 min) Complex 05/18/2021 Patient Education: Patient Medication Summary Completed 05/18/2021 Patient Education: cephalexin- [employer] Coupon [id number] Completed 05/18/2021 Care Plan: Urine Culture Pending [...] outpatient services. 02/01/2021 Appointment: Rubina Demarco WPtel: [facility] [place] [address] (15 min) Moderate 02/01/2021 Patient Education: Patient Medication Summary Completed 02/01/2021 Patient Education: Back Pain Completed 02/01/2021 Appointment: Rubina Demarco WPtel: [facility] [place] [address] 30 min appointments only in this slot [...] injection. 11/17/2020 Appointment: Samara Cormier WPtel: [phone] [phone] (30 min) Complex 11/17/2020 Patient Education: Patient Medication Summary Completed 11/17/2020 Visit Plan: Sacroiliitis - kenalog injec tion today - back exercises discussed with the patient, pt to continue with anti-inflammatories. Pt is to call if the symptoms do not improve or if they worsen. Tobacco use- patient is due for low dose CT scan 10/29/2020 Appointment: Ara Boland WPtel: [phone] [phone] (15 min) Moderate 10/29/2020 Patient [...] care only. 09/22/2020 Appointment: Rubina Demarco WPtel: [phone] [phone] (15 min) Moderate 09/22/2020 Patient Education: [...] acute concerns. 08/20/2020 Appointment: Ara Boland [facility]: [facility] [phone] (15 min) Moderate 08/20/2020 Patient Education: Patient Medication Summary Completed 08/20/2020 Patient Education: Hypertension Completed 08/20/2020 Appointment: Rubina Demarco WPtel: [phone] (30 min) Complex 08/19/2020 Visit Plan: [...] at bedtime. 07/22/2020 Appointment: Rubina Demarco WPtel: [phone] (30 min) Complex 07/22/2020 Patient Education: Patient Medication Summary Completed 07/22/2020 Visit Plan: Dysuria- history of UTI- rx for cipro sent to start over the weekend if needed -culture pending BPPV - continue meclizine as needed 07/16/2020 Appointment: Ara Boland WPtel: [phone] (30 min) Complex 07/16/2020 Patient Education: [...] has to stay in [place] 06/22/2020 Appointment: Rubina Demarco WPtel: [phone] (30 min) Complex 06/22/2020 Patient Education: Patient Medication Summary Completed 06/22/2020 Visit Plan: Sinusitis - Pt has acute inf ection - pain in face, maxillary region, Pt informed to use decongestant, RX given to patient, sinus rinses also recommended. Call if symptoms do not show improvement. 05/24/2020 Appointment: Ara Boland WPtel: [phone] TeleHealth 05/24/2020 Patient Education: Patient Medication [...] concerns. 04/05/2020 Appointment: Samara Cormier WPtel: [phone] [phone] (30 min) Complex 04/05/2020 Patient Education: Patient [...] or concerns. 03/22/2020 Appointment: Samara Cormier WPtel: [address] [place] [address] (15 min) Moderate 03/22/2020 Patient Education: Patient [...] warmth, discharge. 03/16/2020 Appointment: Samara Cormier WPtel: [address] [place] [address] (15 min) Moderate 03/16/2020 Patient Education: Patient [...] warmth, discharge. 03/15/2020 Appointment: Samara Cormier WPtel: [facility] [address] (15 min) Moderate 03/15/2020 Patient Education: [...] improve. 03/11/2020 Appointment: Samara Cormier WPtel: [phone] [phone] (30 min) Complex 03/11/2020 Patient Education: [...] continue Reclast 02/17/2020 Appointment: Rubina Demarco WPtel: [phone] [phone] [place] (15 min) Moderate 02/17/2020 Patient Education: Patient Medication Summary Completed 02/17/2020 Visit Plan: Hematuria- unable to do UA - will culture 02/09/2020 Appointment: Lab Draw 02/09/2020 Patient Education: Patient Medication Summary Completed 02/09/2020 Care Plan: Urine Culture Pending Appointment: Samara Cormier WPtel: [phone] [phone] [place] (30 min) Complex 01/14/2020 Patient Education: Patient Medication Summary Completed 01/14/2020 Care Plan: Urine Culture Pending Appointment: [phone] (10 min) Simple 12/30/2019 Patient Education: [...] spray. 12/02/2019 Appointment: [facility]el[phone] (30 min) Complex 12/02/2019 Patient Education: [...] bisphosphonate until she is seen by the [facility] at [facility]. Esophageal Reflux - the [...] Education: Patient Medication Summary Completed 11/06/2019 Referral: [facility] Referral Appointment Requested Instructions Comment Date mri [...] - [facility] a [facility]. increase the extra strength [...] 08/20/2020 [facility] Hypertension - uncontrolled - the [...] bisphosphonate until she is seen by the [facility] at [facility]. Esophageal Reflux - the [...]
--- OUTSIDE RECORDS SUMMARY | 2022-12-05 15:48 | XMS REPORT | CCD ---
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 Name Role Phone [facility] Unavailable CCM Unavailable Summary Purpose Interface Exchange Insurance Providers Payer name Policy type / Coverage type Covered green party ID Effective Begin Date Effective End Date WPS Medicare Part B Medicare Part B [id number] Unknown Unkno wn [facility] Medicare Part B [id number] Unknown Unknown Family history Uncle Diagnosis Age [...] Description Effective Dates Tobacco history SNOMED CT: 94696559 Current every day smoker Marital status Unknown 11/06/2019 Number of children Unknown 4 grown 11/06/2019 Employment Unknown Retired 4 years ago due to health issues 11/06/2019 Number of years using tobacco Unknown 50 Number of cigarettes/day Unknown 20 (One Pack) [address]: 350932 Currently drinks alcohol 11/05 Frequency of drinks SNOMED CT: 871171093 1drink per week 020 Allergies, Adverse Reactions, Alerts Substance Reaction Codes Entered Date Inactivated Date Status MORPHINE SULFATE rash RxNorm: 97906 11/06/2019 No Inactive Date Active * OTHER REACTION - SEE ANSWER BOX Dilaudid- itching Unknown No Inactive Date Active hydrocodone pruritis Unknown 11/06/2019 No Inactive Date Active bactrim hives, RxNorm: 777180 02/10/2020 No Inactive Date Acti ve IODINE; [...] Start Date Stop Date Status Fill Instructions pantoprazole 40 mg tablet,delayed release RxNorm: 653365 TAKE 1 TABLET BY MOUTH ONCE DAILY 10/19/2022 11/17/2022 Active This prescriptio n was filled on 09/26/2022. Any refills authorized will be placed on file. diazepam 5 mg tablet RxNorm: 247886 Take 1 Tablet(s) Oral as di rected 10/17/2022 No Stop Date Active 30 min prior to MRI - october repeat x 1 Percocet 5 mg-325 mg tablet RxNorm: 3464902 Take 1 Table t(s) Oral four times a day 10/17/2022 11/15/2022 Active calcitonin (salmon) 200 unit/actuation nasal spray RxNorm: 3 16184 INSTILL ONE SPRAY IN ONE NOSTRIL EVERY DAY ALTERNATING DAILY 10/02/2022 11/30/2022 Active estradiol 10 mcg vaginal tablet RxNorm: 636019 INSERT O NE TABLET VAGINALLY TWO TIMES PER WEEK 10/02/2022 03/18/2023 Active metoprolol succinate ER 50 mg tablet,extended release 24 hr RxNorm: 743241 Take 1 Tablet(s) Oral every day 09/17/2022 06/07/2024 Active This prescription was filled on 08/24/2022. Any refills authorized will be placed on file. naproxen 500 mg tablet RxNorm: 991364 Take 1 Tablet(s) Oral two times a day 09/17/2022 04/14/2023 Active This prescription wa s filled on 08/24/2022. Any refills authorized will be placed on file. fluticasone propionate 50 mcg/actuation nasal spray,suspensi on RxNorm: 3470046 USE TWO SPRAYS IN EACH NOSTRIL EVERY DAY 08/17/2022 12/14/2022 Active This prescription was filled on 07/25/2022. Any refills authorized will be placed on file. gabapentin 100 mg capsule RxNorm: 520468 TAKE ONE CAPSU LE BY MOUTH EVERY MORNING AND TAKE ONE CAPSULE BY MOUTH EARLY AFTERNOON 08/17/2022 01/13/2023 Ac tive This prescription was filled on 07/25/2022. Any refills authorized will be placed on file. gabapentin 300 mg capsule RxNorm: 356383 Take 1 Capsule(s) Oral at bed time 08/17/2022 01/13/2023 Active This prescription wa s filled on 07/25/2022. Any refills authorized will be placed on file. baclofen 20 mg tablet RxNorm: 401260 TAKE ONE TABLET BY MOUTH TWICE DAILY WITH FOOD OR MILK 07/25/2022 11/21/2022 Active cefdinir 300 mg capsule RxNorm: 181397 Take 1 Capsule(s) Oral t wo times a day 07/24/2022 07/30/2022 Inactive dicyclomine 20 mg tablet RxNorm: 175068 TAKE 1 TABLET B Y MOUTH THREE TIMES DAILY 07/20/2022 11/16/2022 Active This prescriptio n was filled on 06/27/2022. Any refills authorized will be placed on file. baclofen 20 mg tablet RxNorm: 531023 TAKE ONE TABLET BY MOUTH TWICE DAILY WITH FOOD OR MILK 06/27/2022 06/27/2022 Inactive calcitonin (salmon) 200 unit/actuation nasal spray RxNorm: 3 94531 INSTILL ONE SPRAY IN ONE NOSTRIL EVERY DAY ALTERNATING DAILY 06/19/2022 09/16/2022 Inactive This prescription was filled on 05/26/2022. Any refills authorized will be placed on file. baclofen 20 mg tablet RxNorm: 366766 TAKE ONE TABLET BY MOUTH TWICE DAILY WITH FOOD OR MILK 05/30/2022 05/30/2022 Inactive This prescriptio n was filled on 04/06/2021. Any refills authorized will be placed on file. pantoprazole 40 mg tablet,delayed release RxNorm: 592187 TAKE 1 TABLET BY MOUTH ONCE DAILY 05/19/2022 10/15/2022 Inactive This prescriptio n was filled on 04/26/2022. Any refills authorized will be placed on file. cephalexin 500 mg capsule RxNorm: 653329 Take 1 Capsule (s) Oral three times a day 04/25/2022 05/01/2022 Inactive cephalexin 500 mg capsule RxNorm: 172584 Take 1 Capsule (s) Oral three times a day 04/25/2022 04/25/2022 Inactive estradiol 0.01% (0.1 mg/gram) vaginal cream RxNorm: 583103 A PEA SIZE AMOUNT ACROSS URETHRAL OPENING DAILY FOR 21 DAYS THEN ON SUNDAY., SUNDAY., SUNDAY. THEREAFTER 04/20/2022 10/16/2022 Inactive This prescriptio n was filled on 03/27/2022. Any refills authorized will be placed on file. Augmentin 875 mg-125 mg tablet RxNorm: 201752 Take 1 Ta blet(s) Oral two times a day 03/28/2022 04/01/2022 Inactive dicyclomine 20 mg tablet RxNorm: 067214 TAKE 1 TABLET B Y MOUTH THREE TIMES DAILY 03/20/2022 03/20/2022 Inactive This prescriptio n was filled on 02/23/2022. Any refills authorized will be placed on file. gabapentin 100 mg capsule RxNorm: 187972 TAKE ONE CAPSU LE BY MOUTH EVERY MORNING AND TAKE ONE CAPSULE BY MOUTH EARLY AFTERNOON 03/20/2022 08/16/2022 In active This prescription was filled on 02/23/2022. Any refills authorized will be placed on file. montelukast 10 mg tablet RxNorm: 974735 Take 1 Tablet(s) Oral a t bed time 03/20/2022 05/30/2022 Inactive This prescription wa s filled on 02/23/2022. Any refills authorized will be placed on file. gabapentin 300 mg capsule RxNorm: 221016 Take 1 Capsule(s) Oral at bed time 03/20/2022 08/16/2022 Inactive This prescription wa s filled on 02/23/2022. Any refills authorized will be placed on file. calcitonin (salmon) 200 unit/actuation nasal spray RxNorm: 3 02383 INSTILL ONE SPRAY IN ONE NOSTRIL EVERY DAY ALTERNATING DAILY 03/20/2022 06/17/2022 Inactive This prescription was filled on 02/23/2022. Any refills authorized will be placed on file. ceftriaxone 500 mg solution for injection RxNorm: 6222258 Take I njection 03/15/2022 03/15/2022 Inactive ceftriaxone 500 mg solution for injection RxNorm: 0763830 Take I njection 03/14/2022 03/14/2022 Inactive ceftriaxone 500 mg solution for injection RxNorm: 1766967 Take I njection 03/13/2022 03/13/2022 Inactive ceftriaxone 500 mg solution for injection RxNorm: 8471143 Take I njection 03/10/2022 03/10/2022 Inactive amoxicillin 875 mg-potassium clavulanate 125 mg tablet RxNor m: 148039 Take 1 Tablet(s) Oral two times a day 03/09/2022 03/13/2022 Inactive ceftriaxone 500 mg solution for injection RxNorm: 4761312 Take I njection 03/09/2022 03/09/2022 Inactive estradiol 10 mcg vaginal tablet RxNorm: 035631 INSERT O NE TABLET VAGINALLY TWO TIMES PER WEEK 03/07/2022 08/21/2022 Inactive This prescriptio n was filled on 12/20/2021. Any refills authorized will be placed on file. cephalexin 500 mg capsule RxNorm: 956874 Take 1 Capsule (s) Oral three times a day 02/24/2022 03/02/2022 Inactive metoprolol succinate ER 50 mg tablet,extended release 24 hr RxNorm: 906358 Take 1 Tablet(s) Oral every day 02/20/2022 02/20/2022 Inactive This prescription was filled on 01/26/2022. Any refills authorized will be placed on file. naproxen 500 mg tablet RxNorm: 048759 Take 1 Tablet(s) Oral two times a day 02/20/2022 02/20/2022 Inactive This prescription wa s filled on 01/26/2022. Any refills authorized will be placed on file. fluticasone propionate 50 mcg/actuation nasal spray,suspensi on RxNorm: 2745389 USE TWO SPRAYS IN EACH NOSTRIL EVERY DAY 02/05/2022 06/04/2022 Inactiv e calcitonin (salmon) 200 unit/actuation nasal spray RxNorm: 3 95299 INSTILL ONE SPRAY IN ONE NOSTRIL EVERY DAY ALTERNATING DAILY 2021 2021 Inactive pantoprazole 40 mg tablet,delayed release RxNorm: 861822 TAKE 1 TABLET BY MOUTH ONCE DAILY 12/21/2021 12/21/2021 Inactive This prescriptio n was filled on 11/28/2021. Any refills authorized will be placed on file. Cipro 500 mg tablet RxNorm: 518499 Take 1 Tablet(s) Oral two ti mes a day 12/09/2021 12/15/2021 Inactive Pyridium 200 mg tablet RxNorm: 2293607 Take 1 Tablet(s) Oral three times a day as needed 12/02/2021 No Stop Date Active cephalexin 500 mg capsule RxNorm: 194564 Take 1 Capsule (s) Oral three times a day 12/02/2021 12/08/2021 Inactive levocetirizine 5 mg tablet RxNorm: 857109 Take 1 Tablet(s) Oral every day 11/28/2021 11/22/2022 Active dicyclomine 20 mg tablet RxNorm: 083901 TAKE 1 TABLET B Y MOUTH THREE TIMES DAILY 11/20/2021 11/20/2021 Inactive This prescriptio n was filled on 10/28/2021. Any refills authorized will be placed on file. calcitonin (salmon) 200 unit/actuation nasal spray RxNorm: 3 31003 INSTILL ONE SPRAY IN ONE NOSTRIL EVERY DAY ALTERNATING DAILY 11/20/2021 12/19/2021 Inactive This prescription was filled on 10/28/2021. Any refills authorized will be placed on file. celecoxib 200 mg capsule RxNorm: 485347 Take 1 Capsule(s) Oral two times a day 11/02/2021 05/02/2022 Inactive estradiol 0.01% (0.1 mg/gram) vaginal cream RxNorm: 619333 A PEA SIZE AMOUNT ACROSS URETHRAL OPENING DAILY FOR 21 DAYS THEN ON SUNDAY., SUNDAY., SUNDAY. THEREAFTER 10/28/2021 10/28/2021 Inactive cephalexin 500 mg tablet RxNorm: 501595 Take 1 Tablet(s) Oral t hree times a day 10/27/2021 11/02/2021 Inactive ceftriaxone 500 mg solution for injection RxNorm: 2534425 Take I njection 10/27/2021 10/27/2021 Inactive naproxen 500 mg tablet RxNorm: 482121 Take 1 Tablet(s) Oral two times a day 10/24/2021 10/24/2021 Inactive This prescription wa s filled on 09/28/2021. Any refills authorized will be placed on file. gabapentin 100 mg capsule RxNorm: 038526 TAKE ONE CAPSU LE BY MOUTH EVERY MORNING AND TAKE ONE CAPSULE BY MOUTH EARLY AFTERNOON 10/24/2021 10/24/2021 In active This prescription was filled on 09/28/2021. Any refills authorized will be placed on file. gabapentin 300 mg capsule RxNorm: 123315 Take 1 Capsule(s) Oral at bed time 10/24/2021 10/24/2021 Inactive This prescription wa s filled on 09/28/2021. Any refills authorized will be placed on file. Prolia 60 mg/mL subcutaneous syringe RxNorm: 848143 1 M illiliter(s) Subcutaneous as doctor directed every 6 months 10/17/2021 No Stop Date Active Percocet 5 mg-325 mg tablet RxNorm: 6378809 Take 1 Table t(s) Oral four times a day 09/30/2021 10/29/2021 Inactive calcitonin (salmon) 200 unit/actuation nasal spray RxNorm: 3 41945 Take 1 [place] Nasal every day one spray in one nostril every day - alternate nostrils daily 09/28/2021 09/28/2021 Inactive Percocet 5 mg-325 mg tablet RxNorm: 0483854 Take 1 Table t(s) Oral Every 6 hrs as needed 09/22/2021 09/22/2021 Inactive Percocet 5 mg-325 mg tablet RxNorm: 1461487 Take 1 Table t(s) Oral Every 6 hrs as needed 09/22/2021 09/22/2021 Inactive estradiol 10 mcg vaginal tablet RxNorm: 067558 INSERT O NE TABLET VAGINALLY TWO TIMES PER WEEK 09/19/2021 03/05/2022 Inactive baclofen 20 mg tablet RxNorm: 869821 TAKE ONE TABLET BY MOUTH TWICE DAILY WITH FOOD OR MILK 08/08/2021 11/05/2021 Inactive This prescriptio n was filled on 04/06/2021. Any refills authorized will be placed on file. dicyclomine 20 mg tablet RxNorm: 029357 TAKE 1 TABLET B Y MOUTH THREE TIMES DAILY 07/25/2021 07/25/2021 Inactive This prescriptio n was filled on 06/30/2021. Any refills authorized will be placed on file. pantoprazole 40 mg tablet,delayed release RxNorm: 124227 TAKE 1 TABLET BY MOUTH ONCE DAILY 07/25/2021 07/25/2021 Inactive This prescriptio n was filled on 06/30/2021. Any refills authorized will be placed on file. metoprolol succinate ER 50 mg tablet,extended release 24 hr RxNorm: 602614 Take 1 Tablet(s) Oral every day 07/25/2021 07/25/2021 Inactive This prescription was filled on 06/30/2021. Any refills authorized will be placed on file. naproxen 500 mg tablet RxNorm: 898260 Take 1 Tablet(s) Oral two times a day 06/23/2021 10/20/2021 Inactive This prescription wa s filled on 05/31/2021. Any refills authorized will be placed on file. gabapentin 100 mg capsule RxNorm: 689211 Take 1 Capsule (s) Oral as directed 1 tab AM, 1 tab early afternoon, and 3 tab hs 06/01/2021 06/01/2021 Inac tive dicyclomine 20 mg tablet RxNorm: 094140 TAKE 1 TABLET B Y MOUTH THREE TIMES DAILY 05/31/2021 05/31/2021 Inactive cephalexin 500 mg tablet RxNorm: 322356 Take 1 Tablet(s) Oral t wo times a day 05/18/2021 05/24/2021 Inactive Diflucan 150 mg tablet RxNorm: 711023 Take 1 Tablet(s) Oral shoshana day 05/18/2021 05/24/2021 Inactive baclofen 20 mg tablet RxNorm: 440210 TAKE ONE TABLET BY MOUTH TWICE DAILY WITH FOOD OR MILK 04/29/2021 06/27/2021 Inactive This prescriptio n was filled on 04/06/2021. Any refills authorized will be placed on file. Tylenol Extra Strength 500 mg tablet RxNorm: 565113 2 T ablet(s) Oral three times a day 04/14/2021 No Stop Date Active montelukast 10 mg tablet RxNorm: 588594 TAKE 1 TABLET BY MOUTH AT BEDTIME 03/15/2021 05/25/2021 Inactive Singulair 10 mg tablet RxNorm: 623691 TAKE 1 TABLET BY MOUTH AT BEDTIME 03/14/2021 04/12/2021 Inactive Diflucan 150 mg tablet RxNorm: 262548 Take 1 Tablet(s) Oral shoshana ry day 03/11/2021 03/13/2021 Inactive Diflucan 150 mg tablet RxNorm: 855569 Take 1 Tablet(s) Oral shoshana ry day 03/11/2021 03/11/2021 Inactive baclofen 20 mg tablet RxNorm: 077187 TAKE ONE TABLET BY MOUTH TWICE DAILY WITH FOOD OR MILK 03/07/2021 03/07/2021 Inactive This prescriptio n was filled on 02/10/2021. Any refills authorized will be placed on file. fluticasone propionate 50 mcg/actuation nasal spray,suspensi on RxNorm: 0466622 USE TWO SPRAYS IN EACH NOSTRIL EVERY DAY 03/07/2021 07/04/2021 Inactiv e This prescription was filled on 02/10/2021. Any refills authorized will be placed on file. naproxen 500 mg tablet RxNorm: 909083 Take 1 Tablet(s) Oral two times a day 03/07/2021 03/07/2021 Inactive This prescription wa s filled on 02/10/2021. Any refills authorized will be placed on file. Augmentin 875 mg-125 mg tablet RxNorm: 860789 1 Tablet(s) Oral two times a day 02/18/2021 02/18/2021 Inactive Augmentin 875 mg-125 mg tablet RxNorm: 412078 1 Tablet(s) Oral two times a day 02/18/2021 02/24/2021 Inactive Keflex 500 mg capsule RxNorm: 245327 1 Capsule(s) Oral three ti mes a day 02/14/2021 02/17/2021 Inactive pantoprazole 40 mg tablet,delayed release RxNorm: 201740 TAKE 1 TABLET BY MOUTH ONCE DAILY 02/04/2021 07/03/2021 Inactive This prescriptio n was filled on 01/12/2021. Any refills authorized will be placed on file. gabapentin 400 mg capsule RxNorm: 998091 1 Capsule(s) Oral at b ed time 02/01/2021 05/01/2021 Inactive Vitamin D3 125 mcg (5,000 unit) tablet RxNorm: 870246 1 Tablet(s) Oral every day 01/25/2021 No Stop Date Active baclofen 20 mg tablet RxNorm: 201840 TAKE ONE TABLET BY MOUTH TWICE DAILY WITH FOOD OR MILK 01/05/2021 03/05/2021 Inactive This prescriptio n was filled on 12/13/2020. Any refills authorized will be placed on file. Colace 100 mg capsule RxNorm: 6727443 1 Capsule(s) Oral every day 0 01/03/2021 02/01/2021 Inactive Miralax 17 gram/dose oral powder RxNorm: 618149 17 Gram (s) Oral every day as needed 01/03/2021 01/03/2021 Inactive Colace 100 mg capsule RxNorm: 0768855 1 Capsule(s) Oral every day 0 01/03/2021 01/03/2021 Inactive Keflex 500 mg capsule RxNorm: 722582 1 Capsule(s) Oral three ti mes a day 12/22/2020 12/28/2020 Inactive gabapentin 300 mg capsule RxNorm: 389719 1 Capsule(s) Oral at b ed time 12/17/2020 01/15/2021 Inactive gabapentin 300 mg capsule RxNorm: 830778 1 Capsule(s) Oral at b ed time 12/17/2020 12/17/2020 Inactive prednisone 20 mg tablet RxNorm: 651755 2 Tablet(s) Oral every day 0 11/30/2020 11/29/2020 Inactive prednisone 20 mg tablet RxNorm: 102635 2 Tablet(s) Oral every day 0 11/30/2020 12/05/2020 Inactive Kenalog 40 mg/mL suspension for injection RxNorm: 5583628 1 Milliliter(s) Injection 11/23/2020 11/23/2020 Inactive Tessalon Perles 100 mg capsule RxNorm: 252592 2 Capsule (s) Oral three times a day as needed cough 11/19/2020 No Stop Date Active Augmentin 500 mg-125 mg tablet RxNorm: 164111 1 Tablet( s) Oral three times a day 11/17/2020 11/24/2020 Inactive Xyzal 5 mg tablet RxNorm: 233400 TAKE 1 TABLET BY MOUTH DAILY 11/1111/05/2021 Inactive naproxen 500 mg tablet RxNorm: 780174 1 Tablet(s) Oral two time s a day 11/08/2020 11/08/2020 Inactive baclofen 20 mg tablet RxNorm: 403938 TAKE ONE TABLET BY MOUTH TWICE DAILY WITH FOOD OR MILK 11/04/2020 01/02/2021 Inactive Kenalog 40 mg/mL suspension for injection RxNorm: 5885392 Milliliter(s) Injection 10/29/2020 10/29/2020 Inactive Flonase Allergy Relief 50 mcg/actuation nasal spray,suspensi on RxNorm: 3536545 2 [place] Nasal every day 10/27/2020 02/23/2021 Inactive baclofen 20 mg tablet RxNorm: 841006 TAKE 1 TABLET BY M OUTH TWICE DAILY WITH FOOD OR MILK 09/27/2020 10/26/2020 Inactive Flonase Allergy Relief 50 mcg/actuation nasal spray,suspensi on RxNorm: 4426543 2 [place] Nasal every day 09/06/2020 10/26/2020 Inactive Flonase Allergy Relief 50 mcg/actuation nasal spray,suspensi on RxNorm: 0864884 2 [place] Nasal every day 08/30/2020 09/05/2020 Inactive pantoprazole 40 mg tablet,delayed release RxNorm: 998014 TAKE 1 TABLET BY MOUTH ONCE DAILY 08/30/2020 08/30/2020 Inactive Xyzal 5 mg tablet RxNorm: 806209 TAKE 1 TABLET BY MOUTH DAILY 08/2011/10/2020 Inactive metoprolol succinate ER 50 mg tablet,extended release 24 hr RxNorm: 587377 1 Tablet(s) Oral every day 08/20/2020 08/20/2020 Inactive Xyzal 5 mg tablet RxNorm: 401525 TAKE 1 TABLET BY MOUTH DAILY 08/2008/19/2020 Inactive dicyclomine 20 mg tablet RxNorm: 977888 TAKE 1 TABLET B Y MOUTH THREE TIMES DAILY 07/29/2020 07/29/2020 Inactive This prescriptio n was filled on 07/06/2020. Any refills authorized will be placed on file. metoprolol succinate ER 25 mg tablet,extended release 24 hr RxNorm: 048778 1.5 Tablet(s) Oral every day 07/22/2020 08/19/2020 Inactive Cipro 500 mg tablet RxNorm: 339402 1 Tablet(s) Oral two times a day 07/16/2020 07/23/2020 Inactive baclofen 20 mg tablet RxNorm: 771251 TAKE 1 TABLET BY M OUTH TWICE DAILY WITH FOOD OR MILK 07/14/2020 09/12/2020 Inactive Vagifem 10 mcg vaginal tablet RxNorm: 332112 INSERT 1 TABLET TW O TIMES A WEEKPV 07/14/2020 12/29/2020 Inactive Vagifem 10 mcg vaginal tablet RxNorm: 761743 INSERT 1 TABLET TW O TIMES A WEEKPV 07/07/2020 07/13/2020 Inactive baclofen 20 mg tablet RxNorm: 656215 TAKE 1 TABLET BY M OUTH TWICE DAILY WITH FOOD OR MILK 06/30/2020 07/13/2020 Inactive tramadol 50 mg tablet RxNorm: 647826 Tablet(s) Oral dr quirino sneed 06/22/2020 No Stop Date Active estradiol 1 mg tablet RxNorm: 605735 1 Tablet(s) Oral every day 10/202006/17/2021 Inactive naproxen 500 mg tablet RxNorm: 989822 1 Tablet(s) Oral two time s a day 06/22/2020 11/07/2020 Inactive metoprolol succinate ER 25 mg tablet,extended release 24 hr RxNorm: 010243 1 Tablet(s) Oral every day 06/22/2020 07/21/2020 Inactive naproxen 500 mg tablet RxNorm: 839832 1 Tablet(s) Oral two time s a day 06/16/2020 06/21/2020 Inactive Flonase Allergy Relief 50 mcg/actuation nasal spray,suspensi on RxNorm: 1269294 2 [place] Nasal every day 05/31/2020 08/28/2020 Inactive dicyclomine 20 mg tablet RxNorm: 738585 TAKE 1 TABLET B Y MOUTH THREE TIMES DAILY 05/31/2020 07/28/2020 Inactive This prescriptio n was filled on 05/06/2020. Any refills authorized will be placed on file. prednisone 20 mg tablet RxNorm: 417939 2 Tablet(s) Oral every day 1 07/28/2019 05/26/2020 Inactive prednisone 20 mg tablet RxNorm: 417828 2 Tablet(s) Oral every day 1 07/28/2019 06/01/2020 Inactive Keflex 500 mg capsule RxNorm: 690892 1 Capsule(s) Oral three ti mes a day 05/24/2020 05/31/2020 Inactive naproxen 500 mg tablet RxNorm: 836395 1 Tablet(s) Oral two time s a day 05/10/2020 05/14/2020 Inactive dicyclomine 20 mg tablet RxNorm: 524275 TAKE 1 TABLET B Y MOUTH THREE TIMES DAILY 04/07/2020 05/30/2020 Inactive Singulair 10 mg tablet RxNorm: 447716 TAKE 1 TABLET BY MOUTH AT BEDTIME 04/07/2020 04/07/2020 Inactive meclizine 25 mg tablet RxNorm: 438831 1 Tablet(s) Oral three times a day as needed Dizziness 04/05/2020 No Stop Date Active Tessalon Perles 100 mg capsule RxNorm: 783955 2 Capsule (s) Oral three times a day as needed cough 03/22/2020 04/05/2020 Inactive Xyzal 5 mg tablet RxNorm: 822267 1 Tablet(s) Oral every day 07/20/2020 Inactive prednisone 20 mg tablet RxNorm: 120560 2 Tablet(s) Oral every day 1 03/26/2020 Inactive naproxen 500 mg tablet RxNorm: 123672 1 Tablet(s) Oral two time s a day 03/17/2020 03/22/2020 Inactive mupirocin 2 % topical ointment RxNorm: 771584 1 Application Top ical as directed 03/15/2020 04/05/2020 Inactive naproxen 500 mg tablet RxNorm: 979244 1 Tablet(s) Oral two time s a day 03/11/2020 03/16/2020 Inactive Kenalog 40 mg/mL suspension for injection RxNorm: 6882449 1 Milliliter(s) Injection 03/11/2020 03/11/2020 Inactive Zithromax Z-David 250 mg tablet RxNorm: 447997 Tablet(s) Oral as directed 03/11/2020 04/05/2020 Inactive baclofen 20 mg tablet RxNorm: 679926 TAKE 1 TABLET BY M OUT TWICE DAILY WITH FOOD OR MILK 03/09/2020 06/29/2020 Inactive Toviaz 4 mg tablet,extended release RxNorm: 986143 1 Tablet(s) Oral every day 02/17/2020 04/05/2020 Inactive Toviaz 4 mg tablet,extended release RxNorm: 385460 1 Tablet(s) Oral every day 02/17/2020 09/14/2020 Inactive dicyclomine 20 mg tablet RxNorm: 112258 1 Tablet(s) Oral three times a day 02/13/2020 04/06/2020 Inactive Flonase Allergy Relief 50 mcg/actuation nasal spray,suspensi on RxNorm: 1506974 2 [place] Nasal every day 02/13/2020 05/30/2020 Inactive ceftriaxone 500 mg solution for injection RxNorm: 6693161 Injection 01/14/2020 01/14/2020 Inactive Cipro 500 mg tablet RxNorm: 813496 1 Tablet(s) Oral two times a day 01/14/2020 01/24/2020 Inactive ceftriaxone 500 mg solution for injection RxNorm: 7900814 Injection 12/30/2019 12/30/2019 Inactive prednisone 20 mg tablet RxNorm: 564824 2 Tablet(s) Oral every day 0 12/30/2019 01/03/2020 Inactive Singulair 10 mg tablet RxNorm: 654698 1 Tablet(s) Oral every ni ght at bedtime 12/30/2019 04/06/2020 Inactive Keflex 500 mg capsule RxNorm: 850815 1 Capsule(s) Oral three ti mes a day 12/30/2019 01/09/2020 Inactive Vagifem 10 mcg vaginal tablet RxNorm: 182187 INSERT 1 T ABLET TWO TIMES A WEEK PV 12/15/2019 05/30/2020 Inactive pantoprazole 40 mg tablet,delayed release RxNorm: 488139 TAKE 1 TABLET BY MOUTH ONCE DAILY 12/15/2019 06/11/2020 Inactive baclofen 20 mg tablet RxNorm: 914472 1T PO BID WITH FOOD OR MILK 03/08/2020 Inactive prednisone 20 mg tablet RxNorm: 465590 2 Tablet(s) Oral every day 0 12/02/2019 12/07/2019 Inactive Cipro 500 mg tablet RxNorm: 344711 1 Tablet(s) Oral two times a day add on to the 7 days for a total of 10 days 12/02/2019 12/05/2019 Inactive Macrobid 100 mg capsule RxNorm: 842913 1 Capsule(s) Oral two ti mes a day 11/20/2019 11/27/2019 Inactive Macrobid 100 mg capsule RxNorm: 246846 1 Capsule(s) Oral two ti mes a day 11/20/2019 11/19/2019 Inactive cranberry concentrate-ascorbic acid 4,200 mg-20 mg capsule R xNorm: 1 Capsule(s) Oral every day 11/06/2019 No Stop Date Active Claritin 10 mg tablet RxNorm: 866440 1 Tablet(s) Oral every day No Stop Date Active biotin 5,000 mcg disintegrating tablet RxNorm: 2555387 1 Tablet(s) Oral every day 11/06/2019 No Stop Date Active Fetzima 120 mg capsule,extended release RxNorm: 9405851 1 Capsule(s) Oral every day 11/06/2019 No Stop Date Active Vitamin C 1,000 mg tablet RxNorm: 456594 2 Tablet(s) Oral every day 11/06/2019 No Stop Date Active Calcium 500 500 mg calcium (1,250 mg) tablet RxNorm: 189128 1 Tablet(s) Oral every day 11/06/2019 No Stop Date Active Depakote ER 500 mg tablet,extended release RxNorm: 7168286 2 Tablet(s) Oral every night at bedtime 11/06/2019 No Stop Date Active hydroxyzine HCl 10 mg tablet RxNorm: 735669 3 Tablet(s) Oral as needed 11/06/2019 No Stop Date Active Voltaren 1 % topical gel RxNorm: 437313 Topical as needed 0 No Stop Date Active Benadryl Allergy 25 mg tablet RxNorm: 1899132 2 Tablet(s ) Oral every night at bedtime 11/06/2019 06/21/2020 Inactive Vagifem 10 mcg vaginal tablet RxNorm: 106686 Tablet(s) Vaginal 2 times weekly 11/06/2019 12/14/2019 Inactive pantoprazole 40 mg tablet,delayed release RxNorm: 012767 1 Tablet(s) Oral every day 11/06/2019 12/14/2019 Inactive estradiol 2 mg tablet RxNorm: 876599 1 Tablet(s) Oral every day 06/21/2020 Inactive Flonase Allergy Relief 50 mcg/actuation nasal spray,suspensi on RxNorm: 1955401 1 [place] Nasal every day 11/06/2019 02/12/2020 Inactive ibuprofen 600 mg tablet RxNorm: 549732 1 Tablet(s) Oral as needed 0 11/06/2019 06/21/2020 Inactive Vitamin D3 50 mcg (2,000 unit) tablet RxNorm: 987191 2 Tablet(s ) Oral every day 11/06/2019 01/24/2021 Inactive baclofen 20 mg tablet RxNorm: 183560 1 Tablet(s) Oral two times a day 11/06/2019 12/14/2019 Inactive Boniva 150 mg tablet RxNorm: 925655 1 Tablet(s) Oral monthly 201906/21/2020 Inactive dicyclomine 20 mg tablet RxNorm: 201910 1 Tablet(s) Oral three times a day 11/06/2019 02/12/2020 Inactive Miralax 17 gram/dose oral powder RxNorm: 409848 Oral as needed 10/1701/03/2021 Inactive B Complex-Vitamin B12 oral RxNorm: 06679 oral 11/06/2019 Active Reclast intravenous RxNorm: 125899 intravenous 06/22/2020 Ac tive Probiotic oral RxNorm: 6205 oral 11/06/2019 Active Ocuvite Adult 50 Plus oral RxNorm: oral 11/06/2019 Ac tive Multivitamin 50 Plus oral RxNorm: oral 11/06/2019 Act [facility]chell Medication Administered Medication Codes Instructions Start Date Status ceftriaxone 500 mg solution for injection RxNorm: 3459318 03/15/2022 No longer Active ceftriaxone 500 mg solution for injection RxNorm: 5394611 03/14/2022 No longer Active ceftriaxone 500 mg solution for injection RxNorm: 3683181 03/13/2022 No longer Active ceftriaxone 500 mg solution for injection RxNorm: 3188574 03/10/2022 No longer Active ceftriaxone 500 mg solution for injection RxNorm: 7307815 03/09/2022 No longer Active ceftriaxone 500 mg solution for injection RxNorm: 7554330 10/27/2021 No longer Active Kenalog 40 mg/mL suspension for injection RxNorm: 1476666 1Milli liter 11/23/2020 No longer Active Kenalog 40 mg/mL suspension for injection RxNorm: 4956649 Millilite r 10/29/2020 No longer Active Kenalog 40 mg/mL suspension for injection RxNorm: 7045927 1Milli liter 03/11/2020 No longer Active ceftriaxone 500 mg solution for injection RxNorm: 9356252 01/14/2020 No longer Active ceftriaxone 500 mg solution for injection RxNorm: 9211425 12/30/2019 No longer Active Immunizations Vaccine Codes Dose Date Status Influenza CVX: 150 0.5 04/08/2021 Complete Influenza CVX: 150 0.5 04/07/2020 Complete Tetanus/Diptheria CVX: 09 12/16/2016 Zoster CVX: 121 12/17/2007 Results Observation Observation Code Item Item Code Result Date S [facility] Location CULTURE, URINE M100 URINE CULTURE See [...] CULTURE See Note 05/23/2021 Unknown Comp Metabolic Cck196 NA 128 mEq/L 05/18/2021 Unkn own Comp Metabolic Fyq199 K 5.0 mEq/L 05/18/2021 Unkn own Comp Metabolic Fpx913 CL 93 mEq/L 05/18/2021 Unkn own Comp Metabolic Htn641 CO2 29.0 mEq/L 05/18/2021 Unk nown Comp Metabolic Usu898 ANION GAP 11 05/18/2021 Unkn own Comp Metabolic Iak567 GLUCOSE 80 mg/dL 05/18/2021 Unkn own Comp Metabolic Czk562 Creat 0.7 mg/dL 05/18/2021 Unkn own Comp Metabolic Iyy121 eGFR 87 ml/min/1.73m2 05/18/20 21 Unknown Comp Metabolic Rcw248 BUN 9 mg/dL 05/18/2021 Unkn own Comp Metabolic Ino600 B/C Ratio 12.5 Ratio 05/18/2021 Unk nown Comp Metabolic Chw242 CALCIUM 8.7 mg/dL 05/18/2021 Unkn own Comp Metabolic Mkh109 ALK PHOS 65 U/L 05/18/2021 Unkn own Comp Metabolic Ivu319 AST(SGOT) 9 U/L 05/18/2021 Unkn own Comp Metabolic Gnd744 ALT(SGPT) 7 U/L 05/18/2021 Unkn own Comp Metabolic Igb555 BILI T 0.3 mg/dL 05/18/2021 Unkn own Comp Metabolic Zix155 ALBUMIN 4.0 g/dL 05/18/2021 Unkn own Comp Metabolic Dui831 TPRO 6.0 g/dL 05/18/2021 Unkn own Comp Metabolic Emf574 GLOB 2.1 g/dL 05/18/2021 Unkn own Comp Metabolic Avn927 A/G Ratio 1.9 Ratio 05/18/2021 Unkn own Comp Metabolic Wiv162 Osmo 255 mOsmo 05/18/2021 Unkn own C-Reactive Protein Qnt Crqnt CRP 0.1 mg/dl 2020 Unknown Sed Rate Ord21 ESR 5 mm/hr 04/15/2021 Unknown Ra Factor Ugo953 RA FACTOR <10 IU/ml 04/15/2021 Unknown CULTURE, [...] Antinuclear Antibody Negative 06/28/2020 Unknown Ra Factor Qrf483 RA FACTOR <10 IU/ml 06/25/2020 Unknown C-Reactive [...] 01/14/20 20 Unknown Cbc With Differential Ord2 Latimer% 7.8 % 01/14/20 20 Unknown Cbc With [...] K/ul 020 Unknown Cbc With Differential Ord2 Latimer ABS# 1.0 K/ul 01/14/20 20 Unknown Cbc With Differential Ord2 Eos ABS# 0.1 K/ul 01/14/20 20 Unknown Cbc With Differential Ord2 Baso ABS# 0.1 K/ul 01/14/20 20 Unknown Comp Metabolic Taf283 NA 130 mEq/L 01/14/2020 Unkn own Comp Metabolic Nqy195 K 4.6 mEq/L 01/14/2020 Unkn own Comp Metabolic Qij814 CL 92 mEq/L 01/14/2020 Unkn own Comp Metabolic Nod100 CO2 31.0 mEq/L 01/14/2020 Unk nown Comp Metabolic Kvu801 ANION GAP 12 01/14/2020 Unkn own Comp Metabolic Mar515 GLUCOSE 81 mg/dL 01/14/2020 Unkn own Comp Metabolic Ucy948 Creat 0.8 mg/dL 01/14/2020 Unkn own Comp Metabolic Suh715 eGFR 77 ml/min/1.73m2 01/14/20 20 Unknown Comp Metabolic Lxh018 BUN 12 mg/dL 01/14/2020 Unkn own Comp Metabolic Nqk266 B/C Ratio 15.0 Ratio 01/14/2020 Unk nown Comp Metabolic Pcc571 CALCIUM 9.2 mg/dL 01/14/2020 Unkn own Comp Metabolic Iyd492 ALK PHOS 71 U/L 01/14/2020 Unkn own Comp Metabolic Xad077 AST(SGOT) 13 U/L 01/14/2020 Unkn own Comp Metabolic Odu503 ALT(SGPT) 11 U/L 01/14/2020 Unkn own Comp Metabolic Dzj657 BILI T 0.4 mg/dL 01/14/2020 Unkn own Comp Metabolic Ser008 ALBUMIN 3.9 g/dL 01/14/2020 Unkn own Comp Metabolic Oyc477 TPRO 6.2 g/dL 01/14/2020 Unkn own Comp Metabolic Evu520 GLOB 2.3 g/dL 01/14/2020 Unkn own Comp Metabolic Ftl923 A/G Ratio 1.7 Ratio 01/14/2020 Unkn own Comp Metabolic Pvq487 Osmo 260 mOsmo 01/14/2020 Unkn own CULTURE, [...] CPT-4: G0444 07/24/2022 THER/PROPH/DIAG INJ SC/IM CPT-4: 04900 03/15/2022 ROCEPHIN, PER 250 MG CPT-4: J0696 03/15/2022 THER/PROPH/DIAG INJ SC/IM CPT-4: 83474 03/14/2022 ROCEPHIN, PER 250 MG CPT-4: J0696 03/14/2022 THER/PROPH/DIAG INJ SC/IM CPT-4: 89948 03/13/2022 ROCEPHIN, PER 250 MG CPT-4: J0696 03/13/2022 THER/PROPH/DIAG INJ SC/IM CPT-4: 39015 03/10/2022 ROCEPHIN, PER 250 MG CPT-4: J0696 03/10/2022 THER/PROPH/DIAG INJ SC/IM CPT-4: 15701 03/09/2022 ROCEPHIN, PER 250 MG CPT-4: J0696 03/09/2022 THER/PROPH/DIAG INJ SC/IM CPT-4: 78047 10/27/2021 ROCEPHIN, PER 250 MG CPT-4: J0696 10/27/2021 URINALYSIS NONAUTO W/O SCOPE CPT-4: 46945 05/18/2021 IIV4 VACC NO PRSV 0.5 ML IM CPT-4: 63497 04/08/2021 IIV4 VACC NO PRSV 0.5 ML IM CPT-4: 67316 04/08/2021 ADMIN INFLUENZA VIRUS VAC CPT-4: G0008 04/08/2021 TRIAMCINOLONE ACET INJ NOS 10 mg CPT-4: J3301 021 DRAIN/INJECT JOINT/BURSA CPT-4: 39252 11/17/2020 TRIAMCINOLONE ACET INJ NOS 10 mg CPT-4: J3301 021 IIV4 VACC NO PRSV 0.5 ML IM CPT-4: 59610 04/07/2020 ADMIN INFLUENZA VIRUS VAC CPT-4: G0008 04/07/2020 IIV4 VACC NO PRSV 0.5 ML IM CPT-4: 11338 04/07/2020 URINALYSIS NONAUTO W/O SCOPE CPT-4: 02558 03/16/2020 TRIAMCINOLONE ACET INJ NOS 10 mg CPT-4: J3301 020 THER/PROPH/DIAG INJ SC/IM CPT-4: 91754 03/11/2020 THER/PROPH/DIAG INJ SC/IM CPT-4: 11886 01/14/2020 ROCEPHIN, PER 250 MG CPT-4: J0696 01/14/2020 ROCEPHIN, PER 250 MG CPT-4: J0696 12/30/2019 THER/PROPH/DIAG INJ SC/IM CPT-4: 14248 12/30/2019 Vital Signs Date Vital 10/17/2022 Blood Pressure 1: 132/80 Code: 8480-6 Heart Rate 1: 96 bpm Height: 5'3" Code: 8302-2 SpO2: 96% Temperature: 36.1 (C) / 97.0 (F) 07/24/2022 Blood Pressure 1: 162/78 Code: 8480-6 BMI: 28.7 Code: 36927-7 Heart Rate 1: 89 bpm Height: 5'3" Code: 8302-2 SpO2: 100% Weight: 162 lb s Code: 90773-8 07/03/2022 Blood Pressure 1: 138/70 Code: 8480-6 Heart Rate 1: 72 bpm Height: Code: 8302-2 Respiratory Rate: 16 bpm SpO2: 95% Weight: 163 lbs Code: 66960-2 03/09/2022 Blood Pressure 1: 142/84 Code: 8480-6 BMI: 29.8 Code: 16955-9 Heart Rate 1: 87 bpm Height: 5'3" Code: 8302-2 SpO2: 98% Temperature: 3 6.3 (C) / 97.3 (F) Weight: 168 lbs Code: 89629-0 10/27/2021 Blood Pressure 1: 134/78 Code: 8480-6 BMI: 28.9 Code: 92639-0 Heart Rate 1: 88 bpm Height: 5'3" Code: 8302-2 SpO2: 97% Temperature: 3 6.1 (C) / 96.9 (F) Weight: 163 lbs Code: 05450-9 09/28/2021 Blood Pressure 1: 142/84 Code: 8480-6 BMI: 28.9 Code: 87313-8 Heart Rate 1: 67 bpm Height: 5'3" Code: 8302-2 SpO2: 96% Temperature: 3 5.9 (C) / 96.7 (F) Weight: 163 lbs Code: 55343-1 09/02/2021 Blood Pressure 1: 142/84 Code: 8480-6 BMI: 28.9 Code: 09070-3 Heart Rate 1: 95 bpm Height: 5'3" Code: 8302-2 SpO2: 99% Temperature: 3 6.3 (C) / 97.4 (F) Weight: 163 lbs Code: 72151-9 06/01/2021 Blood Pressure 1: 126/80 Code: 8480-6 BMI: 28.0 Code: 61853-5 Heart Rate 1: 84 bpm Height: 5'3" Code: 8302-2 SpO2: 96% Temperature: 3 6.2 (C) / 97.1 (F) Weight: 158 lbs Code: 44077-9 05/18/2021 Blood Pressure 1: 152/76 Code: 8480-6 Heart Rate 1: 68 bpm Height: Code: 8302-2 Temperature: 36.3 (C) / 97.3 (F) Weight: Code: 40596- 7 03/03/2021 Blood Pressure 1: 132/80 Code: 8480-6 Heart Rate 1: 88 bpm Height: Code: 8302-2 Weight: Code: 55743-3 02/01/2021 Blood Pressure 1: 146/82 Code: 8480-6 Heart Rate 1: 84 bpm Height: 5'3" Code: 8302-2 Respiratory Rate: 16 bpm SpO2: 98% Temperature: 36 .2 (C) / 97.2 (F) Weight: Code: 28984-7 11/17/2020 Blood Pressure 1: 140/80 Code: 8480-6 Heart Rate 1: 72 bpm Height: 5'3" Code: 8302-2 SpO2: 100% Temperature: 36.1 (C) / 97.0 (F) Weight: Code: 05057-9 10/29/2020 Blood Pressure 1: 126/74 Code: 8480-6 BMI: 28.7 Code: 56059-3 Heart Rate 1: 86 bpm Height: 5'3" Code: 8302-2 SpO2: 99% Temperature: 3 6.3 (C) / 97.3 (F) Weight: 162 lbs Code: 28609-2 09/22/2020 Blood Pressure 1: 138/72 Code: 8480-6 BMI: 28.9 Code: 69223-6 Heart Rate 1: 74 bpm Height: 5'3" Code: 8302-2 Temperature: 35.9 (C) / 96.7 (F) Weight: 163 lbs Code: 90136-0 08/20/2020 Blood Pressure 1: 148/80 Code: 8480-6 BMI: 28.2 Code: 15180-0 Heart Rate 1: 94 bpm Height: 5'3" Code: 8302-2 SpO2: 95% Temperature: 3 6.3 (C) / 97.3 (F) Weight: 159 lbs Code: 46063-2 07/22/2020 Blood Pressure 1: 160/80 Code: 8480-6 Bl ood Pressure 1: 142/76 Code: 8480-6 BMI: 27.8 Code: 49911-6 Heart Rate 1: 84 bpm Height: 5'3" Code: 8302-2 Respiratory Rate: 18 bpm SpO2: 97% Temperature: 36.4 (C) / 97.5 (F) We ight: 157 lbs Code: 13293-1 07/16/2020 Blood Pressure 1: 140/78 Code: 8480-6 BMI: 27.8 Code: 32014-3 Heart Rate 1: 86 bpm Height: 5'3" Code: 8302-2 SpO2: 97% Temperature: 3 6.3 (C) / 97.3 (F) Weight: 157 lbs Code: 22403-6 06/22/2020 Blood Pressure 1: 162/84 Code: 8480-6 BMI: 27.8 Code: 26476-0 Heart Rate 1: 93 bpm Height: 5'3" Code: 8302-2 Respiratory Rate: 16 bpm SpO2: 100% Temperature: 36.2 (C) / 97.1 (F) Weight: 157 lbs Code: 15639-0 05/24/2020 Height: Code: 8302-2 Weight: Code: 294 63-7 04/05/2020 Blood Pressure 1: 132/74 Code: 8480-6 BMI: 26.9 Code: 45124-7 Heart Rate 1: 74 bpm Height: 5'3" Code: 8302-2 Weight: 152 lbs Code: 96408 -7 03/22/2020 Height: Code: 8302-2 Weight: Code: 294 63-7 03/16/2020 Height: Code: 8302-2 Weight: Code: 294 63-7 03/15/2020 Blood Pressure 1: 140/76 Code: 8480-6 Heart Rate 1: 82 bpm Height: 5'3" Code: 8302-2 SpO2: 97% Temperature: 37.2 (C) / 99.0 (F) 03/11/2020 BMI: 26.9 Code: 64205-0 Heart Rate 1: 80 bpm Hei ght: 5'3" Code: 8302-2 Weight: 152 lbs Code: 88484-1 02/17/2020 Blood Pressure 1: 134/72 Code: 8480-6 BMI: 27.3 Code: 37945-4 Heart Rate 1: 84 bpm Height: 5'3" Code: 8302-2 Respiratory Rate: 16 bpm SpO2: 96% Temperature: 36.2 (C) / 97.1 (F) Weight: 154 lbs Code: 31525-2 01/14/2020 Blood Pressure 1: 122/74 Code: 8480-6 Heart Rate 1: 87 bpm Height: Code: 8302-2 SpO2: 99% Temperature: 36.4 (C) / 97.6 (F) Weight: Code: 70508-9 12/30/2019 Height: Code: 8302-2 Weight: Code: 294 63-7 12/02/2019 Blood Pressure 1: 148/86 Code: 8480-6 BMI: 27.3 Code: 25925-2 Heart Rate 1: 96 bpm Height: 5'3" Code: 8302-2 SpO2: 98% Temperature: 3 7.2 (C) / 98.9 (F) Weight: 154 lbs Code: 81602-0 11/06/2019 Blood Pressure 1: 146/78 Code: 8480-6 BMI: 27.3 Code: 45525-7 Heart Rate 1: 94 bpm Height: 5'3" Code: 8302-2 SpO2: 98% Temperature: 3 6.3 (C) / 97.3 (F) Weight: 154 lbs Code: 29842-9 Functional Status No Functional Status data Reason [...] Encounters Encounter Performer Location Location Address Codes ([id number]) [id number] EST. PATIENT, LEVEL III Diagnosis: Compression fracture of L3 vertebra, initial encounter[ICD10: S32.030A] Diagnosis: Compression fracture of L5 vertebra, initial encounter[ICD10: S32.050A] Ara Demarco MD, [facility] [address] [place] [address] CPT-4: 25697 10/17/2022 ([id number]) 56517 EST. PATIENT, LEVEL III Diagnosis: Essential (primary) hypertension[ICD10: I10] Rubina Demarco MD, [facility] [address] [place] [address] CPT-4: 9921 3 07/03/2022 ([id number]) 92545 EST. PATIENT, LEVEL IV Diagnosis: Essential (primary) hypertension[ICD10: I10] Diagnosis: Dysuria[ICD10: R30.0] Diagnosis: Urinary tract infection[ICD10: N39.0] Rubina Demarco MD, [facility] [address] [place] [address] CPT-4: 9921 4 03/09/2022 ([id number]) 04379 EST. PATIENT, LEVEL I Diagnosis: Urinary tract infection[ICD10: N39.0] Rubina Demarco MD, [facility] [address] [place] [address] CPT-4: 9921 1 12/02/2021 ([id number]) 21538 EST. PATIENT, LEVEL IV Diagnosis: Essential (primary) hypertension[ICD10: I10] Diagnosis: Non-traumatic compression fracture of L5 lumbar vertebra with routine healing, subsequent encounter[ICD10: M48.56XD] Diagnosis: Other chronic pain[ICD10: G89.29] Diagnosis: Dysuria[ICD10: R30.0] Diagnosis: Urinary tract infection[ICD10: N39.0] Rubina Demarco MD, [facility] [address] [place] [address] CPT-4: 9921 4 10/27/2021 ([id number]) 01266 EST. PATIENT, LEVEL IV Diagnosis: Essential (primary) hypertension[ICD10: I10] Diagnosis: Chronic back pain[ICD10: M54.9] Diagnosis: Nontraumatic compression fracture of L5 vertebra, initial encounter[ICD10: M48.56XA] Rubina Demarco MD, [facility] [address] [place] [address] CPT-4: 23117 09/28/2021 ([id number]) 90630 EST. PATIENT, LEVEL III Diagnosis: Other allergic rhinitis[ICD10: J30.89] Ara Stewart MD, [facility] [address] [place] [address] CPT-4: 9921 3 09/02/2021 ([id number]) 03654 EST. PATIENT, LEVEL IV Diagnosis: Essential (primary) hypertension[ICD10: I10] Diagnosis: Other chronic pain[ICD10: G89.29] Diagnosis: Chronic idiopathic constipation[ICD10: K59.04] Diagnosis: Hyponatremia[ICD10: E87.1] Rubina Demarco MD, [facility] [address] [place] [address] CPT-4: 85801 06/01/2021 ([id number]) 28616 EST. PATIENT, LEVEL IV Diagnosis: Essential (primary) hypertension[ICD10: I10] Diagnosis: Age-related osteoporosis without current pathological fracture[ICD10: M81.0] Diagnosis: Dysuria[ICD10: R30.0] Diagnosis: Oral candidiasis[ICD10: B37.0] Whitney Demarco MD, [facility] [address] [place] [address] CPT-4: 18901 05/18 ([id number]) Miscellaneous no charge Diagnosis: Laceration of right lower leg[ICD10: S81.811A] Rubina Demarco MD, [facility] [address] [place] [address] CPT-4: 9999 9 03/11/2021 ([id number]) 69333 EST. PATIENT, LEVEL I Diagnosis: Laceration of left lower leg[ICD10: S81.812A] Diagnosis: Laceration of right lower leg[ICD10: S81.811A] Rubina Demarco MD, [facility] [address] [place] [address] CPT-4: 9921 1 03/04/2021 ([id number]) 90214 EST. PATIENT, LEVEL III Diagnosis: Laceration of right lower leg[ICD10: S81.811A] Diagnosis: Laceration of left lower leg[ICD10: S81.812A] Ara Demarco MD, [facility] [address] [place] [address] CPT-4: 9921 3 03/03/2021 ([id number]) 64323 EST. PATIENT, LEVEL IV Diagnosis: Essential (primary) hypertension[ICD10: I10] Diagnosis: Low back pain[ICD10: M54.5] Diagnosis: Chronic back pain[ICD10: M54.9] Rubina wills MD, [facility] [address] [place] [address] CPT-4: 9921 4 02/01/2021 46957 EST. PATIENT, LEVEL III Diagnosis: Pain of right sacroiliac joint[ICD10: M53.3] Diagnosis: Chronic back pain[ICD10: M54.9] Samara Demarco MD , [facility] [address] [place] [address] CPT-4: 90290 11/17 ([id number]) 70264 EST. PATIENT, LEVEL III Diagnosis: Pain of left sacroiliac joint[ICD10: M53.3] Diagnosis: Low back pain[ICD10: M54.5] Diagnosis: Nicotine dependence, cigarettes, uncomplicated[ICD10: F17.210] Ara Demarco MD, [facility] [address] [place] [address] CPT-4: 55989 10/29/2020 ([id number]) 06309 EST. PATIENT, LEVEL IV Diagnosis: Essential (primary) hypertension[ICD10: I10] Diagnosis: Weakness[ICD10: R53.1] Diagnosis: Generalized osteoarthritis[ICD10: M15.9] Diagnosis: Fibromyalgia[ICD10: M79.7] Rubina Demarco MD, [facility] [address] [place] [address] CPT-4: 01571 09/22/2020 ([id number]) 55992 EST. PATIENT, LEVEL III Diagnosis: Essential (primary) hypertension[ICD10: I10] Ara Demarco MD, [facility] [address] [place] [address] CPT-4: 9921 3 08/20/2020 ([id number]) 29595 EST. PATIENT, LEVEL III Diagnosis: Essential (primary) hypertension[ICD10: I10] Rubina Demarco MD, [facility] [address] [place] [phone] CPT-4: 9921 3 07/22/2020 ([id number]) 65282 EST. PATIENT, LEVEL III Diagnosis: Dysuria[ICD10: R30.0] Diagnosis: Benign paroxysmal positional vertigo, bilateral[ICD10: H81.13] Ara Demarco MD, [facility] [address] [place] [address] CPT-4: 62224 07/16/2020 ([id number]) 48361 EST. PATIENT, LEVEL IV Diagnosis: Essential (primary) hypertension[ICD10: I10] Diagnosis: Chronic back pain[ICD10: M54.9] Diagnosis: Weakness[ICD10: R53.1] Diagnosis: Fibromyalgia[ICD10: M79.7] Diagnosis: Generalized osteoarthritis[ICD10: M15.9] Diagnosis: Breast pain, left[ICD10: N64.4] Rubina wills MD, [facility] [address] [place] [address] CPT-4: 9921 4 06/22/2020 ([id number]) 67736 EST. PATIENT, LEVEL III Diagnosis: Cough[ICD10: R05] Diagnosis: Acute recurrent maxillary sinusitis[ICD10: J01.01] Ara Boland [facility] [address] [place] [address] CPT-4: 9921 3 05/24/2020 21334 EST. PATIENT, LEVEL III Diagnosis: Benign paroxysmal positional vertigo, bilateral[ICD10: H81.13] Diagnosis: Weakness[ICD10: R53.1] Diagnosis: Imbalance[ICD10: R26.89] Diagnosis: Frequent falls[ICD10: R29.6] Samara Demarco MD, [facility] [address] [place] [address] CPT-4: 72661 04/05/2020 12894 EST. PATIENT, LEVEL III Diagnosis: Skin tear of right forearm without complication, subsequent encounter[ICD10: S51.811D] Diagnosis: Other allergic rhinitis[ICD10: J30.89] Diagnosis: Rib pain on left side[ICD10: R07.81] Samara Demarco MD, [facility] [address] [place] [address] CPT-4: 9921 3 03/22/2020 59777 EST. PATIENT, LEVEL II Diagnosis: Skin tear of right forearm without complication, subsequent encounter[ICD10: S51.811D] Diagnosis: Dysuria[ICD10: R30.0] Samara Demarco MD, [facility] [address] [place] [address] CPT-4: 27016 03/16/2020 02858 EST. PATIENT, LEVEL III Diagnosis: Right shoulder pain[ICD10: M25.511] Diagnosis: Right knee pain[ICD10: m25.561] Diagnosis: Skin tear of right forearm without complication[ICD10: S51.811A] Samara Demarco MD, [facility] [address] [place] [address] CPT-4: 84347 03/15/2020 42965 EST. PATIENT, LEVEL IV Diagnosis: Other acute sinusitis[ICD10: J01.80] Diagnosis: Other allergic rhinitis[ICD10: J30.89] Diagnosis: Right knee pain[ICD10: m25.561] Samara Demarco MD , [facility] [address] [place] [address] CPT-4: 75467 03/11 ([id number]) 76527 EST. PATIENT, LEVEL IV Diagnosis: Gastro-esophageal reflux disease without esophagitis[ICD10: K21.9] Diagnosis: Age-related osteoporosis without current pathological fracture[ICD10: M81.0] Diagnosis: Chronic back pain[ICD10: M54.9] Rubina wills MD, [facility] [address] [place] [address] CPT-4: 9921 4 02/17/2020 89597 EST. PATIENT, LEVEL III Diagnosis: Dysuria[ICD10: R30.0] Diagnosis: Hematuria[ICD10: R31.9] Samara Demarco MD, [facility] [address] [place] [address] CPT-4: 02115 01/14/2020 [id number] EST. PATIENT, LEVEL III Diagnosis: Dysuria[ICD10: R30.0] Diagnosis: Other allergic rhinitis[ICD10: J30.89] Samara Stewart MD, [facility] [address] [place] [address] CPT-4: 9921 3 12/30/2019 33346 EST. PATIENT, LEVEL IV Diagnosis: Other acute sinusitis[ICD10: J01.80] Diagnosis: Other allergic rhinitis[ICD10: J30.89] Diagnosis: Cough[ICD10: R05] Samara Demarco MD, [facility] [address] [place] [address] CPT-4: 15860 12/02/2019 ([id number]) OFFICE VISIT, NEW - LEVEL 4 Diagnosis: Age-related osteoporosis without current pathological fracture[ICD10: M81.0] Diagnosis: Nasal sinus congestion[ICD10: R09.81] Diagnosis: Other chronic pain[ICD10: G89.29] Diagnosis: Chronic back pain[ICD10: M54.9] Diagnosis: Gastro-esophageal reflux disease without esophagitis[ICD10: K21.9] Rubina Demarco MD, [facility] [address] [place] [address] CPT-4: 02620 11/06/2019 Plan of Care Planned Activity Notes Codes Status Date Visit Plan: Compression fractures of L3 and L5 - patient is interested in kyphoplasty due to increased pain - will order MRI lumbar spine and then plan to refer to [facility] for evaluation- refill percocet to use prn as directed - patient verbalized understanding of plan. 10/17/2022 Appointment: Ara Boland WPtel: [address] [place], [place] [phone] (30 min) Complex 10/17/2022 Patient Education: Patient [...] patient's DME 07/24/2022 Appointment: Ara Boland WPtel: [phone] [phone] [facility] - Annual Wellness Visit 11/2022 Patient [...] well. 07/03/2022 Appointment: Rubina Demarco WPtel: [phone] [phone] (15 min) Moderate 07/03/2022 Patient Education: Patient [...] to pharmacy. 03/09/2022 Appointment: Rubina Demarco WPtel: [address] [place], [place] [phone] (30 min) [facility] 03/09/2022 Patient Education: Patient Medication Summary Completed [...] fixation needed. 09/28/2021 Appointment: Rubina Demarco WPtel: [address] [place], [place] [phone] (15 min) Moderate 09/28/2021 Patient Education: Patient [...] allergy spray. 09/02/2021 Appointment: Ara Boland WPtel: [facility] [place] [phone] (30 min) Complex 09/02/2021 Patient Education: Patient [...] a week 06/01/2021 Appointment: Rubina Demarco WPtel: [facility] (15 min) Moderate 06/01/2021 Patient Education: Patient [...] calcium adequate. 05/18/2021 App[facility]ment: [facility] [phone] [phone] (30 min) Complex 05/18/2021 Patient Education: Patient Medication Summary Completed 05/18/2021 Patient Education: cephalexin- [employer] Coupon [id number] Completed 05/18/2021 Care Plan: Urine Culture Pending [...] outpatient services. 02/01/2021 Appointment: Rubina Demarco WPtel: [phone] [phone] [place] (15 min) Moderate 02/01/2021 Patient Education: Patient Medication Summary Completed 02/01/2021 Patient Education: Back Pain Completed 02/01/2021 Appointment: Rubina Demarco WPtel: [phone] [place] 30 min appointments only in this [...] injection. 11/17/2020 Appointment[phone] [phone] [place] (30 min) Complex 11/17/2020 Patient Education: Patient Medication Summary Completed 11/17/2020 Visit Plan: Sacroiliitis - kenalog injec tion today - back exercises discussed with the patient, pt to continue with anti-inflammatories. Pt is to call if the symptoms do not improve or if they worsen. Tobacco use- patient is due for low dose CT scan 10/29/2020 Appointment: Ara Boland WPtel: [phone] (15 min) Moderate 10/29/2020 Patient Education: Patient [...] care only. 09/22/2020 Appointment: Rubina Demarco WPtel: [phone] (15 min) Moderate 09/22/2020 Patient Education: Patient [...] acute concerns. 08/20/2020 Appointment: Ara Boland WPtel: [phone] (15 min) Moderate 08/20/2020 Patient Education: Patient Medication Summary Completed 08/20/2020 Patient Education: Hypertension Completed 08/20/2020 Appointment: Rubina Demarco WPtel: [facility]0 [phone] (30 min) Complex 08/19/2020 Visit Plan: Hypertension [...] at bedtime. 07/22/2020 Appointment: Rubina Demarco WPtel: [phone] [phone] (30 min) Complex 07/22/2020 Patient Education: Patient Medication Summary Completed 07/22/2020 Visit Plan: Dysuria- history of UTI- rx for cipro sent to start over the weekend if needed -culture pending BPPV - continue meclizine as needed 07/16/2020 Appointment: Ara Boland WPtel: [phone] [phone] (30 min) Complex 07/16/2020 Patient Education: Patient [...] [facility] because she has to stay in [place] 06/22/2020 Appointment: Rubina Demarco WPtel: [phone] [phone] (30 min) Complex 06/22/2020 Patient Education: Patient Medication Summary Completed 06/22/2020 Visit Plan: Sinusitis - Pt has acute inf ection - pain in face, maxillary region, Pt informed to use decongestant, RX given to patient, sinus rinses also recommended. Call if symptoms do not show improvement. 05/24/2020 Appointment: Ara Boland WPtel: [phone] [id number] [place] [address] TeleHealth 05/24/2020 Patient Education: Patient Medication Summary [...] or concerns. 04/05/2020 Appointment: Samara Cormier WPtel: [phone] [phone] (30 min) Complex 04/05/2020 Patient Education: Patient [...] or concerns. 03/22/2020 Appointment: [phone] (15 min) Moderate 03/22/2020 Patient Education: Patient [...] warmth, discharge. 03/16/2020 Appointment: [facility]ormier [facility]el[phone] (15 min) Moderate 03/16/2020 Patient Education: Patient [...] warmth, discharge. 03/15/2020 Appointment: [facility] Cormier [facility]el[phone] (15 min) Moderate 03/15/2020 Patient Education: Patient [...] not improve. 03/11/2020 Appointment: Samara Cormier WPtel: [facility]7 [facility] (30 min) Complex 03/11/2020 Patient Education: Patient [...] continue Reclast 02/17/2020 Appointment: Rubina Demarco WPtel: [facility]9 [phone] [place] (15 min) Moderate 02/17/2020 Patient Education: Patient Medication Summary Completed 02/17/2020 Visit Plan: Hematuria- unable to do UA - will culture 02/09/2020 Appointment: Lab Draw 02/09/2020 Patient Education: Patient Medication Summary Completed 02/09/2020 Care Plan: Urine Culture Pending Appointment: Samara Cormier WPtel: [facility]1 [facility] (30 min) Complex 01/14/2020 Patient Education: Patient Medication Summary Completed 01/14/2020 Care Plan: Urine Culture Pending Appointment: Samara Cormier WPtel: [facility] [place] (10 min) Simple 12/30/2019 Patient Education: [...] spray. 12/02/2019 Appointment: Sam[facility] Cormier [facility]el: [phone] (30 min) Complex 12/02/2019 Patient Education: Patient [...] bisphosphonate until she is seen by the Delicatessen Clerk at [facility]. Esophageal Reflux - the patient has been [...] Education: Patient Medication Summary Completed 11/06/2019 Referral: [facility] Referral Appointment Requested Instructions Comment Date mri [...] referral to phys ical therapy at [facility] - has L1 re- fracture of previous [...] bisphosphonate until she is seen by the Delicatessen Clerk at [facility]. Esophageal Reflux - the patient has been [...]
--- OUTSIDE RECORDS SUMMARY | 2022-12-05 15:49 | XMS REPORT | CCD ---
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 Role Phone [facility] Unavailable CCM Unavailable Summary Purpose Interface Exchange Insurance Providers Payer name Policy type / Coverage type Covered green party ID Effective Begin Date Effective End Date WPS Medicare Part B Medicare Part B [id number] Unknown Unkno wn [facility] Medicare Part B [id number] Unknown Unknown Family history Uncle Diagnosis Age [...] Description Effective Dates Tobacco history SNOMED CT: 56276407 Current every day smoker Marital status Unknown 11/06/2019 Number of children Unknown 4 grown 11/06/2019 Employment Unknown Retired 4 years ago due to health issues 11/06/2019 Number of years using tobacco Unknown 50 Number of cigarettes/day Unknown 20 (One Pack) [address]: 439658 Currently drinks alcohol 11/05 Frequency of drinks SNOMED CT: 761599843 1drink per week 020 Allergies, Adverse Reactions, Alerts Substance Reaction Codes Entered Date Inactivated Date Status MORPHINE SULFATE rash RxNorm: 44709 11/06/2019 No Inactive Date Active * OTHER REACTION - SEE ANSWER BOX Dilaudid- itching Unknown No Inactive Date Active hydrocodone pruritis Unknown 11/06/2019 No Inactive Date Active bactrim hives, RxNorm: 967538 02/10/2020 No Inactive Date Acti ve IODINE; [...] Start Date Stop Date Status Fill Instructions diazepam 5 mg tablet RxNorm: 717158 Take 1 Tablet(s) Oral as di rected 10/17/2022 No Stop Date Active 30 min prior to MRI - october repeat x 1 Percocet 5 mg-325 mg tablet RxNorm: 3268160 Take 1 Table t(s) Oral four times a day 10/17/2022 11/15/2022 Active calcitonin (salmon) 200 unit/actuation nasal spray RxNorm: 3 27102 INSTILL ONE SPRAY IN ONE NOSTRIL EVERY DAY ALTERNATING DAILY 10/02/2022 11/30/2022 Active estradiol 10 mcg vaginal tablet RxNorm: 649501 INSERT O NE TABLET VAGINALLY TWO TIMES PER WEEK 10/02/2022 03/18/2023 Active metoprolol succinate ER 50 mg tablet,extended release 24 hr RxNorm: 613668 Take 1 Tablet(s) Oral every day 09/17/2022 06/07/2024 Active This prescription was filled on 08/24/2022. Any refills authorized will be placed on file. naproxen 500 mg tablet RxNorm: 021868 Take 1 Tablet(s) Oral two times a day 09/17/2022 04/14/2023 Active This prescription wa s filled on 08/24/2022. Any refills authorized will be placed on file. fluticasone propionate 50 mcg/actuation nasal spray,suspensi on RxNorm: 0527050 USE TWO SPRAYS IN EACH NOSTRIL EVERY DAY 08/17/2022 12/14/2022 Active This prescription was filled on 07/25/2022. Any refills authorized will be placed on file. gabapentin 100 mg capsule RxNorm: 270038 TAKE ONE CAPSU LE BY MOUTH EVERY MORNING AND TAKE ONE CAPSULE BY MOUTH EARLY AFTERNOON 08/17/2022 01/13/2023 Ac tive This prescription was filled on 07/25/2022. Any refills authorized will be placed on file. gabapentin 300 mg capsule RxNorm: 488063 Take 1 Capsule(s) Oral at bed time 08/17/2022 01/13/2023 Active This prescription wa s filled on 07/25/2022. Any refills authorized will be placed on file. baclofen 20 mg tablet RxNorm: 706849 TAKE ONE TABLET BY MOUTH TWICE DAILY WITH FOOD OR MILK 07/25/2022 11/21/2022 Active cefdinir 300 mg capsule RxNorm: 527627 Take 1 Capsule(s) Oral t wo times a day 07/24/2022 07/30/2022 Inactive dicyclomine 20 mg tablet RxNorm: 916888 TAKE 1 TABLET B Y MOUTH THREE TIMES DAILY 07/20/2022 11/16/2022 Active This prescriptio n was filled on 06/27/2022. Any refills authorized will be placed on file. baclofen 20 mg tablet RxNorm: 182298 TAKE ONE TABLET BY MOUTH TWICE DAILY WITH FOOD OR MILK 06/27/2022 06/27/2022 Inactive calcitonin (salmon) 200 unit/actuation nasal spray RxNorm: 3 46832 INSTILL ONE SPRAY IN ONE NOSTRIL EVERY DAY ALTERNATING DAILY 06/19/2022 09/16/2022 Inactive This prescription was filled on 05/26/2022. Any refills authorized will be placed on file. baclofen 20 mg tablet RxNorm: 452341 TAKE ONE TABLET BY MOUTH TWICE DAILY WITH FOOD OR MILK 05/30/2022 05/30/2022 Inactive This prescriptio n was filled on 04/06/2021. Any refills authorized will be placed on file. pantoprazole 40 mg tablet,delayed release RxNorm: 648224 TAKE 1 TABLET BY MOUTH ONCE DAILY 05/19/2022 10/15/2022 Inactive This prescriptio n was filled on 04/26/2022. Any refills authorized will be placed on file. cephalexin 500 mg capsule RxNorm: 863886 Take 1 Capsule (s) Oral three times a day 04/25/2022 05/01/2022 Inactive cephalexin 500 mg capsule RxNorm: 293917 Take 1 Capsule (s) Oral three times a day 04/25/2022 04/25/2022 Inactive estradiol 0.01% (0.1 mg/gram) vaginal cream RxNorm: 697816 A PEA SIZE AMOUNT ACROSS URETHRAL OPENING DAILY FOR 21 DAYS THEN ON SUNDAY., SUNDAY., SUNDAY. THEREAFTER 04/20/2022 10/16/2022 Inactive This prescriptio n was filled on 03/27/2022. Any refills authorized will be placed on file. Augmentin 875 mg-125 mg tablet RxNorm: 301081 Take 1 Ta blet(s) Oral two times a day 03/28/2022 04/01/2022 Inactive dicyclomine 20 mg tablet RxNorm: 489755 TAKE 1 TABLET B Y MOUTH THREE TIMES DAILY 03/20/2022 03/20/2022 Inactive This prescriptio n was filled on 02/23/2022. Any refills authorized will be placed on file. gabapentin 100 mg capsule RxNorm: 700413 TAKE ONE CAPSU LE BY MOUTH EVERY MORNING AND TAKE ONE CAPSULE BY MOUTH EARLY AFTERNOON 03/20/2022 08/16/2022 In active This prescription was filled on 02/23/2022. Any refills authorized will be placed on file. montelukast 10 mg tablet RxNorm: 133001 Take 1 Tablet(s) Oral a t bed time 03/20/2022 05/30/2022 Inactive This prescription wa s filled on 02/23/2022. Any refills authorized will be placed on file. gabapentin 300 mg capsule RxNorm: 231574 Take 1 Capsule(s) Oral at bed time 03/20/2022 08/16/2022 Inactive This prescription wa s filled on 02/23/2022. Any refills authorized will be placed on file. calcitonin (salmon) 200 unit/actuation nasal spray RxNorm: 3 91161 INSTILL ONE SPRAY IN ONE NOSTRIL EVERY DAY ALTERNATING DAILY 03/20/2022 06/17/2022 Inactive This prescription was filled on 02/23/2022. Any refills authorized will be placed on file. ceftriaxone 500 mg solution for injection RxNorm: 7752083 Take I njection 03/15/2022 03/15/2022 Inactive ceftriaxone 500 mg solution for injection RxNorm: 4112162 Take I njection 03/14/2022 03/14/2022 Inactive ceftriaxone 500 mg solution for injection RxNorm: 1042864 Take I njection 03/13/2022 03/13/2022 Inactive ceftriaxone 500 mg solution for injection RxNorm: 7342173 Take I njection 03/10/2022 03/10/2022 Inactive amoxicillin 875 mg-potassium clavulanate 125 mg tablet RxNor m: 043466 Take 1 Tablet(s) Oral two times a day 03/09/2022 03/13/2022 Inactive ceftriaxone 500 mg solution for injection RxNorm: 5419744 Take I njection 03/09/2022 03/09/2022 Inactive estradiol 10 mcg vaginal tablet RxNorm: 968647 INSERT O NE TABLET VAGINALLY TWO TIMES PER WEEK 03/07/2022 08/21/2022 Inactive This prescriptio n was filled on 12/20/2021. Any refills authorized will be placed on file. cephalexin 500 mg capsule RxNorm: 637361 Take 1 Capsule (s) Oral three times a day 02/24/2022 03/02/2022 Inactive metoprolol succinate ER 50 mg tablet,extended release 24 hr RxNorm: 105409 Take 1 Tablet(s) Oral every day 02/20/2022 02/20/2022 Inactive This prescription was filled on 01/26/2022. Any refills authorized will be placed on file. naproxen 500 mg tablet RxNorm: 758396 Take 1 Tablet(s) Oral two times a day 02/20/2022 02/20/2022 Inactive This prescription wa s filled on 01/26/2022. Any refills authorized will be placed on file. fluticasone propionate 50 mcg/actuation nasal spray,suspensi on RxNorm: 5681183 USE TWO SPRAYS IN EACH NOSTRIL EVERY DAY 02/05/2022 06/04/2022 Inactiv e calcitonin (salmon) 200 unit/actuation nasal spray RxNorm: 3 21744 INSTILL ONE SPRAY IN ONE NOSTRIL EVERY DAY ALTERNATING DAILY 2021 2021 Inactive pantoprazole 40 mg tablet,delayed release RxNorm: 140693 TAKE 1 TABLET BY MOUTH ONCE DAILY 12/21/2021 12/21/2021 Inactive This prescriptio n was filled on 11/28/2021. Any refills authorized will be placed on file. Cipro 500 mg tablet RxNorm: 104275 Take 1 Tablet(s) Oral two ti mes a day 12/09/2021 12/15/2021 Inactive Pyridium 200 mg tablet RxNorm: 3039577 Take 1 Tablet(s) Oral three times a day as needed 12/02/2021 No Stop Date Active cephalexin 500 mg capsule RxNorm: 867394 Take 1 Capsule (s) Oral three times a day 12/02/2021 12/08/2021 Inactive levocetirizine 5 mg tablet RxNorm: 030770 Take 1 Tablet(s) Oral every day 11/28/2021 11/22/2022 Active dicyclomine 20 mg tablet RxNorm: 851426 TAKE 1 TABLET B Y MOUTH THREE TIMES DAILY 11/20/2021 11/20/2021 Inactive This prescriptio n was filled on 10/28/2021. Any refills authorized will be placed on file. calcitonin (salmon) 200 unit/actuation nasal spray RxNorm: 3 64294 INSTILL ONE SPRAY IN ONE NOSTRIL EVERY DAY ALTERNATING DAILY 11/20/2021 12/19/2021 Inactive This prescription was filled on 10/28/2021. Any refills authorized will be placed on file. celecoxib 200 mg capsule RxNorm: 526465 Take 1 Capsule(s) Oral two times a day 11/02/2021 05/02/2022 Inactive estradiol 0.01% (0.1 mg/gram) vaginal cream RxNorm: 821230 A PEA SIZE AMOUNT ACROSS URETHRAL OPENING DAILY FOR 21 DAYS THEN ON SUNDAY., SUNDAY., SUNDAY. THEREAFTER 10/28/2021 10/28/2021 Inactive cephalexin 500 mg tablet RxNorm: 422747 Take 1 Tablet(s) Oral t hree times a day 10/27/2021 11/02/2021 Inactive ceftriaxone 500 mg solution for injection RxNorm: 7433822 Take I njection 10/27/2021 10/27/2021 Inactive naproxen 500 mg tablet RxNorm: 692968 Take 1 Tablet(s) Oral two times a day 10/24/2021 10/24/2021 Inactive This prescription wa s filled on 09/28/2021. Any refills authorized will be placed on file. gabapentin 100 mg capsule RxNorm: 873833 TAKE ONE CAPSU LE BY MOUTH EVERY MORNING AND TAKE ONE CAPSULE BY MOUTH EARLY AFTERNOON 10/24/2021 10/24/2021 In active This prescription was filled on 09/28/2021. Any refills authorized will be placed on file. gabapentin 300 mg capsule RxNorm: 161849 Take 1 Capsule(s) Oral at bed time 10/24/2021 10/24/2021 Inactive This prescription wa s filled on 09/28/2021. Any refills authorized will be placed on file. Prolia 60 mg/mL subcutaneous syringe RxNorm: 171974 1 M illiliter(s) Subcutaneous as doctor directed every 6 months 10/17/2021 No Stop Date Active Percocet 5 mg-325 mg tablet RxNorm: 6348932 Take 1 Table t(s) Oral four times a day 09/30/2021 10/29/2021 Inactive calcitonin (salmon) 200 unit/actuation nasal spray RxNorm: 3 53822 Take 1 [place] Nasal every day one spray in one nostril every day - alternate nostrils daily 09/28/2021 09/28/2021 Inactive Percocet 5 mg-325 mg tablet RxNorm: 1384751 Take 1 Table t(s) Oral Every 6 hrs as needed 09/22/2021 09/22/2021 Inactive Percocet 5 mg-325 mg tablet RxNorm: 9593645 Take 1 Table t(s) Oral Every 6 hrs as needed 09/22/2021 09/22/2021 Inactive estradiol 10 mcg vaginal tablet RxNorm: 212950 INSERT O NE TABLET VAGINALLY TWO TIMES PER WEEK 09/19/2021 03/05/2022 Inactive baclofen 20 mg tablet RxNorm: 999259 TAKE ONE TABLET BY MOUTH TWICE DAILY WITH FOOD OR MILK 08/08/2021 11/05/2021 Inactive This prescriptio n was filled on 04/06/2021. Any refills authorized will be placed on file. dicyclomine 20 mg tablet RxNorm: 875384 TAKE 1 TABLET B Y MOUTH THREE TIMES DAILY 07/25/2021 07/25/2021 Inactive This prescriptio n was filled on 06/30/2021. Any refills authorized will be placed on file. pantoprazole 40 mg tablet,delayed release RxNorm: 721419 TAKE 1 TABLET BY MOUTH ONCE DAILY 07/25/2021 07/25/2021 Inactive This prescriptio n was filled on 06/30/2021. Any refills authorized will be placed on file. metoprolol succinate ER 50 mg tablet,extended release 24 hr RxNorm: 952948 Take 1 Tablet(s) Oral every day 07/25/2021 07/25/2021 Inactive This prescription was filled on 06/30/2021. Any refills authorized will be placed on file. naproxen 500 mg tablet RxNorm: 684453 Take 1 Tablet(s) Oral two times a day 06/23/2021 10/20/2021 Inactive This prescription wa s filled on 05/31/2021. Any refills authorized will be placed on file. gabapentin 100 mg capsule RxNorm: 255026 Take 1 Capsule (s) Oral as directed 1 tab AM, 1 tab early afternoon, and 3 tab hs 06/01/2021 06/01/2021 Inac tive dicyclomine 20 mg tablet RxNorm: 438374 TAKE 1 TABLET B Y MOUTH THREE TIMES DAILY 05/31/2021 05/31/2021 Inactive cephalexin 500 mg tablet RxNorm: 875512 Take 1 Tablet(s) Oral t wo times a day 05/18/2021 05/24/2021 Inactive Diflucan 150 mg tablet RxNorm: 589616 Take 1 Tablet(s) Oral shoshana ry day 05/18/2021 05/24/2021 Inactive baclofen 20 mg tablet RxNorm: 589124 TAKE ONE TABLET BY MOUTH TWICE DAILY WITH FOOD OR MILK 04/29/2021 06/27/2021 Inactive This prescriptio n was filled on 04/06/2021. Any refills authorized will be placed on file. Tylenol Extra Strength 500 mg tablet RxNorm: 641211 2 T ablet(s) Oral three times a day 04/14/2021 No Stop Date Active montelukast 10 mg tablet RxNorm: 787932 TAKE 1 TABLET BY MOUTH AT BEDTIME 03/15/2021 05/25/2021 Inactive Singulair 10 mg tablet RxNorm: 749053 TAKE 1 TABLET BY MOUTH AT BEDTIME 03/14/2021 04/12/2021 Inactive Diflucan 150 mg tablet RxNorm: 239942 Take 1 Tablet(s) Oral shoshana ry day 03/11/2021 03/13/2021 Inactive Diflucan 150 mg tablet RxNorm: 449550 Take 1 Tablet(s) Oral shoshana ry day 03/11/2021 03/11/2021 Inactive baclofen 20 mg tablet RxNorm: 142674 TAKE ONE TABLET BY MOUTH TWICE DAILY WITH FOOD OR MILK 03/07/2021 03/07/2021 Inactive This prescriptio n was filled on 02/10/2021. Any refills authorized will be placed on file. fluticasone propionate 50 mcg/actuation nasal spray,suspensi on RxNorm: 1229368 USE TWO SPRAYS IN EACH NOSTRIL EVERY DAY 03/07/2021 07/04/2021 Inactiv e This prescription was filled on 02/10/2021. Any refills authorized will be placed on file. naproxen 500 mg tablet RxNorm: 929119 Take 1 Tablet(s) Oral two times a day 03/07/2021 03/07/2021 Inactive This prescription wa s filled on 02/10/2021. Any refills authorized will be placed on file. Augmentin 875 mg-125 mg tablet RxNorm: 780038 1 Tablet(s) Oral two times a day 02/18/2021 02/18/2021 Inactive Augmentin 875 mg-125 mg tablet RxNorm: 068498 1 Tablet(s) Oral two times a day 02/18/2021 02/24/2021 Inactive Keflex 500 mg capsule RxNorm: 718804 1 Capsule(s) Oral three ti mes a day 02/14/2021 02/17/2021 Inactive pantoprazole 40 mg tablet,delayed release RxNorm: 982771 TAKE 1 TABLET BY MOUTH ONCE DAILY 02/04/2021 07/03/2021 Inactive This prescriptio n was filled on 01/12/2021. Any refills authorized will be placed on file. gabapentin 400 mg capsule RxNorm: 759275 1 Capsule(s) Oral at b ed time 02/01/2021 05/01/2021 Inactive Vitamin D3 125 mcg (5,000 unit) tablet RxNorm: 046348 1 Tablet(s) Oral every day 01/25/2021 No Stop Date Active baclofen 20 mg tablet RxNorm: 105995 TAKE ONE TABLET BY MOUTH TWICE DAILY WITH FOOD OR MILK 01/05/2021 03/05/2021 Inactive This prescriptio n was filled on 12/13/2020. Any refills authorized will be placed on file. Colace 100 mg capsule RxNorm: 1280104 1 Capsule(s) Oral every day 0 01/03/2021 02/01/2021 Inactive Miralax 17 gram/dose oral powder RxNorm: 232039 17 Gram (s) Oral every day as needed 01/03/2021 01/03/2021 Inactive Colace 100 mg capsule RxNorm: 2400499 1 Capsule(s) Oral every day 0 01/03/2021 01/03/2021 Inactive Keflex 500 mg capsule RxNorm: 375288 1 Capsule(s) Oral three ti mes a day 12/22/2020 12/28/2020 Inactive gabapentin 300 mg capsule RxNorm: 761562 1 Capsule(s) Oral at b ed time 12/17/2020 01/15/2021 Inactive gabapentin 300 mg capsule RxNorm: 869776 1 Capsule(s) Oral at b ed time 12/17/2020 12/17/2020 Inactive prednisone 20 mg tablet RxNorm: 602714 2 Tablet(s) Oral every day 0 11/30/2020 11/29/2020 Inactive prednisone 20 mg tablet RxNorm: 274534 2 Tablet(s) Oral every day 0 11/30/2020 12/05/2020 Inactive Kenalog 40 mg/mL suspension for injection RxNorm: 1495491 1 Milliliter(s) Injection 11/23/2020 11/23/2020 Inactive Tessalon Perles 100 mg capsule RxNorm: 935377 2 Capsule (s) Oral three times a day as needed cough 11/19/2020 No Stop Date Active Augmentin 500 mg-125 mg tablet RxNorm: 555831 1 Tablet( s) Oral three times a day 11/17/2020 11/24/2020 Inactive Xyzal 5 mg tablet RxNorm: 139024 TAKE 1 TABLET BY MOUTH DAILY 11/1111/05/2021 Inactive naproxen 500 mg tablet RxNorm: 955846 1 Tablet(s) Oral two time s a day 11/08/2020 11/08/2020 Inactive baclofen 20 mg tablet RxNorm: 440835 TAKE ONE TABLET BY MOUTH TWICE DAILY WITH FOOD OR MILK 11/04/2020 01/02/2021 Inactive Kenalog 40 mg/mL suspension for injection RxNorm: 6478311 Milliliter(s) Injection 10/29/2020 10/29/2020 Inactive Flonase Allergy Relief 50 mcg/actuation nasal spray,suspensi on RxNorm: 6029505 2 [place] Nasal every day 10/27/2020 02/23/2021 Inactive baclofen 20 mg tablet RxNorm: 994513 TAKE 1 TABLET BY M OUTH TWICE DAILY WITH FOOD OR MILK 09/27/2020 10/26/2020 Inactive Flonase Allergy Relief 50 mcg/actuation nasal spray,suspensi on RxNorm: 5990628 2 [place] Nasal every day 09/06/2020 10/26/2020 Inactive Flonase Allergy Relief 50 mcg/actuation nasal spray,suspensi on RxNorm: 0207374 2 [place] Nasal every day 08/30/2020 09/05/2020 Inactive pantoprazole 40 mg tablet,delayed release RxNorm: 875424 TAKE 1 TABLET BY MOUTH ONCE DAILY 08/30/2020 08/30/2020 Inactive Xyzal 5 mg tablet RxNorm: 743861 TAKE 1 TABLET BY MOUTH DAILY 08/2011/10/2020 Inactive metoprolol succinate ER 50 mg tablet,extended release 24 hr RxNorm: 498908 1 Tablet(s) Oral every day 08/20/2020 08/20/2020 Inactive Xyzal 5 mg tablet RxNorm: 333389 TAKE 1 TABLET BY MOUTH DAILY 08/2008/19/2020 Inactive dicyclomine 20 mg tablet RxNorm: 245843 TAKE 1 TABLET B Y MOUTH THREE TIMES DAILY 07/29/2020 07/29/2020 Inactive This prescriptio n was filled on 07/06/2020. Any refills authorized will be placed on file. metoprolol succinate ER 25 mg tablet,extended release 24 hr RxNorm: 346504 1.5 Tablet(s) Oral every day 07/22/2020 08/19/2020 Inactive Cipro 500 mg tablet RxNorm: 577006 1 Tablet(s) Oral two times a day 07/16/2020 07/23/2020 Inactive baclofen 20 mg tablet RxNorm: 104470 TAKE 1 TABLET BY M OUTH TWICE DAILY WITH FOOD OR MILK 07/14/2020 09/12/2020 Inactive Vagifem 10 mcg vaginal tablet RxNorm: 724284 INSERT 1 TABLET TW O TIMES A WEEKPV 07/14/2020 12/29/2020 Inactive Vagifem 10 mcg vaginal tablet RxNorm: 867371 INSERT 1 TABLET TW O TIMES A WEEKPV 07/07/2020 07/13/2020 Inactive baclofen 20 mg tablet RxNorm: 333985 TAKE 1 TABLET BY M OUTH TWICE DAILY WITH FOOD OR MILK 06/30/2020 07/13/2020 Inactive tramadol 50 mg tablet RxNorm: 543060 Tablet(s) Oral dr quirino sneed 06/22/2020 No Stop Date Active estradiol 1 mg tablet RxNorm: 399243 1 Tablet(s) Oral every day 10/202006/17/2021 Inactive naproxen 500 mg tablet RxNorm: 944910 1 Tablet(s) Oral two time s a day 06/22/2020 11/07/2020 Inactive metoprolol succinate ER 25 mg tablet,extended release 24 hr RxNorm: 996555 1 Tablet(s) Oral every day 06/22/2020 07/21/2020 Inactive naproxen 500 mg tablet RxNorm: 745268 1 Tablet(s) Oral two time s a day 06/16/2020 06/21/2020 Inactive Flonase Allergy Relief 50 mcg/actuation nasal spray,suspensi on RxNorm: 5631620 2 [place] Nasal every day 05/31/2020 08/28/2020 Inactive dicyclomine 20 mg tablet RxNorm: 875745 TAKE 1 TABLET B Y MOUTH THREE TIMES DAILY 05/31/2020 07/28/2020 Inactive This prescriptio n was filled on 05/06/2020. Any refills authorized will be placed on file. prednisone 20 mg tablet RxNorm: 483739 2 Tablet(s) Oral every day 1 07/28/2019 05/26/2020 Inactive prednisone 20 mg tablet RxNorm: 628553 2 Tablet(s) Oral every day 1 07/28/2019 06/01/2020 Inactive Keflex 500 mg capsule RxNorm: 064384 1 Capsule(s) Oral three ti mes a day 05/24/2020 05/31/2020 Inactive naproxen 500 mg tablet RxNorm: 892306 1 Tablet(s) Oral two time s a day 05/10/2020 05/14/2020 Inactive dicyclomine 20 mg tablet RxNorm: 158004 TAKE 1 TABLET B Y MOUTH THREE TIMES DAILY 04/07/2020 05/30/2020 Inactive Singulair 10 mg tablet RxNorm: 093846 TAKE 1 TABLET BY MOUTH AT BEDTIME 04/07/2020 04/07/2020 Inactive meclizine 25 mg tablet RxNorm: 589977 1 Tablet(s) Oral three times a day as needed Dizziness 04/05/2020 No Stop Date Active Tessalon Perles 100 mg capsule RxNorm: 327025 2 Capsule (s) Oral three times a day as needed cough 03/22/2020 04/05/2020 Inactive Xyzal 5 mg tablet RxNorm: 664405 1 Tablet(s) Oral every day 07/20/2020 Inactive prednisone 20 mg tablet RxNorm: 959968 2 Tablet(s) Oral every day 1 03/26/2020 Inactive naproxen 500 mg tablet RxNorm: 003389 1 Tablet(s) Oral two time s a day 03/17/2020 03/22/2020 Inactive mupirocin 2 % topical ointment RxNorm: 236435 1 Application Top ical as directed 03/15/2020 04/05/2020 Inactive naproxen 500 mg tablet RxNorm: 299030 1 Tablet(s) Oral two time s a day 03/11/2020 03/16/2020 Inactive Kenalog 40 mg/mL suspension for injection RxNorm: 6400797 1 Milliliter(s) Injection 03/11/2020 03/11/2020 Inactive Zithromax Z-David 250 mg tablet RxNorm: 927304 Tablet(s) Oral as directed 03/11/2020 04/05/2020 Inactive baclofen 20 mg tablet RxNorm: 770421 TAKE 1 TABLET BY M OUTH TWICE DAILY WITH FOOD OR MILK 03/09/2020 06/29/2020 Inactive Toviaz 4 mg tablet,extended release RxNorm: 690658 1 Tablet(s) Oral every day 02/17/2020 04/05/2020 Inactive Toviaz 4 mg tablet,extended release RxNorm: 487958 1 Tablet(s) Oral every day 02/17/2020 09/14/2020 Inactive dicyclomine 20 mg tablet RxNorm: 357358 1 Tablet(s) Oral three times a day 02/13/2020 04/06/2020 Inactive Flonase Allergy Relief 50 mcg/actuation nasal spray,suspensi on RxNorm: 4641172 2 [place] Nasal every day 02/13/2020 05/30/2020 Inactive ceftriaxone 500 mg solution for injection RxNorm: 2952241 Injection 01/14/2020 01/14/2020 Inactive Cipro 500 mg tablet RxNorm: 257962 1 Tablet(s) Oral two times a day 01/14/2020 01/24/2020 Inactive ceftriaxone 500 mg solution for injection RxNorm: 3667714 Injection 12/30/2019 12/30/2019 Inactive prednisone 20 mg tablet RxNorm: 781063 2 Tablet(s) Oral every day 0 12/30/2019 01/03/2020 Inactive Singulair 10 mg tablet RxNorm: 336757 1 Tablet(s) Oral every ni ght at bedtime 12/30/2019 04/06/2020 Inactive Keflex 500 mg capsule RxNorm: 199150 1 Capsule(s) Oral three ti mes a day 12/30/2019 01/09/2020 Inactive Vagifem 10 mcg vaginal tablet RxNorm: 691235 INSERT 1 T ABLET TWO TIMES A WEEK PV 12/15/2019 05/30/2020 Inactive pantoprazole 40 mg tablet,delayed release RxNorm: 999263 TAKE 1 TABLET BY MOUTH ONCE DAILY 12/15/2019 06/11/2020 Inactive baclofen 20 mg tablet RxNorm: 732868 1T PO BID WITH FOOD OR MILK 03/08/2020 Inactive prednisone 20 mg tablet RxNorm: 272136 2 Tablet(s) Oral every day 0 12/02/2019 12/07/2019 Inactive Cipro 500 mg tablet RxNorm: 385067 1 Tablet(s) Oral two times a day add on to the 7 days for a total of 10 days 12/02/2019 12/05/2019 Inactive Macrobid 100 mg capsule RxNorm: 481080 1 Capsule(s) Oral two ti mes a day 11/20/2019 11/27/2019 Inactive Macrobid 100 mg capsule RxNorm: 645052 1 Capsule(s) Oral two ti mes a day 11/20/2019 11/19/2019 Inactive cranberry concentrate-ascorbic acid 4,200 mg-20 mg capsule R xNorm: 1 Capsule(s) Oral every day 11/06/2019 No Stop Date Active Claritin 10 mg tablet RxNorm: 891498 1 Tablet(s) Oral every day No Stop Date Active biotin 5,000 mcg disintegrating tablet RxNorm: 4845243 1 Tablet(s) Oral every day 11/06/2019 No Stop Date Active Fetzima 120 mg capsule,extended release RxNorm: 2903662 1 Capsule(s) Oral every day 11/06/2019 No Stop Date Active Vitamin C 1,000 mg tablet RxNorm: 729260 2 Tablet(s) Oral every day 11/06/2019 No Stop Date Active Calcium 500 500 mg calcium (1,250 mg) tablet RxNorm: 153940 1 Tablet(s) Oral every day 11/06/2019 No Stop Date Active Depakote ER 500 mg tablet,extended release RxNorm: 9845596 2 Tablet(s) Oral every night at bedtime 11/06/2019 No Stop Date Active hydroxyzine HCl 10 mg tablet RxNorm: 740611 3 Tablet(s) Oral as needed 11/06/2019 No Stop Date Active Voltaren 1 % topical gel RxNorm: 061903 Topical as needed 0 No Stop Date Active Benadryl Allergy 25 mg tablet RxNorm: 5545817 2 Tablet(s ) Oral every night at bedtime 11/06/2019 06/21/2020 Inactive Vagifem 10 mcg vaginal tablet RxNorm: 343134 Tablet(s) Vaginal 2 times weekly 11/06/2019 12/14/2019 Inactive pantoprazole 40 mg tablet,delayed release RxNorm: 101680 1 Tablet(s) Oral every day 11/06/2019 12/14/2019 Inactive estradiol 2 mg tablet RxNorm: 667352 1 Tablet(s) Oral every day 06/21/2020 Inactive Flonase Allergy Relief 50 mcg/actuation nasal spray,suspensi on RxNorm: 2172851 1 [place] Nasal every day 11/06/2019 02/12/2020 Inactive ibuprofen 600 mg tablet RxNorm: 087997 1 Tablet(s) Oral as needed 0 11/06/2019 06/21/2020 Inactive Vitamin D3 50 mcg (2,000 unit) tablet RxNorm: 871360 2 Tablet(s ) Oral every day 11/06/2019 01/24/2021 Inactive baclofen 20 mg tablet RxNorm: 303092 1 Tablet(s) Oral two times a day 11/06/2019 12/14/2019 Inactive Boniva 150 mg tablet RxNorm: 483343 1 Tablet(s) Oral monthly 201906/21/2020 Inactive dicyclomine 20 mg tablet RxNorm: 534208 1 Tablet(s) Oral three times a day 11/06/2019 02/12/2020 Inactive Miralax 17 gram/dose oral powder RxNorm: 758813 Oral as needed 10/1701/03/2021 Inactive B Complex-Vitamin B12 oral RxNorm: 17637 oral 11/06/2019 Active Reclast intravenous RxNorm: 773881 intravenous 06/22/2020 Ac tive Probiotic oral RxNorm: 6205 oral 11/06/2019 Active Ocuvite Adult 50 Plus oral RxNorm: oral 11/06/2019 Ac tive Multivitamin 50 Plus oral RxNorm: oral 11/06/2019 Act mitchell Medication Administered Medication Codes Instructions Start Date Status ceftriaxone 500 mg solution for injection RxNorm: 0319614 03/15/2022 No longer Active ceftriaxone 500 mg solution for injection RxNorm: 4627266 03/14/2022 No longer Active ceftriaxone 500 mg solution for injection RxNorm: 5714061 03/13/2022 No longer Active ceftriaxone 500 mg solution for injection RxNorm: 0126918 03/10/2022 No longer Active ceftriaxone 500 mg solution for injection RxNorm: 0333030 03/09/2022 No longer Active ceftriaxone 500 mg solution for injection RxNorm: 5309109 10/27/2021 No longer Active Kenalog 40 mg/mL suspension for injection RxNorm: 9797042 1Milli liter 11/23/2020 No longer Active Kenalog 40 mg/mL suspension for injection RxNorm: 3660575 Millilite r 10/29/2020 No longer Active Kenalog 40 mg/mL suspension for injection RxNorm: 3026951 1Milli liter 03/11/2020 No longer Active ceftriaxone 500 mg solution for injection RxNorm: 0477930 01/14/2020 No longer Active ceftriaxone 500 mg solution for injection RxNorm: 4695380 12/30/2019 No longer Active Immunizations Vaccine Codes [...] Urinalysis Ord28 U-Urobilin 0.2 E.U./dL E.U./dL 04/24/20 Unknown Urinalysis Ord28 U-Nitrites Negative 04/24/2022 Unknown [...] 02/24/2022 Unknown Urinalysis Ord28 U-Squamous Epi None /HPF 02/24/2022 Unknown Urinalysis Ord28 U-Crystal None per/HPF [...] CULTURE See Note 05/23/2021 Unknown Comp Metabolic Cmk227 NA 128 mEq/L 05/18/2021 Unkn own Comp Metabolic Ech876 K 5.0 mEq/L 05/18/2021 Unkn own Comp Metabolic Awa701 CL 93 mEq/L 05/18/2021 Unkn own Comp Metabolic Epq167 CO2 29.0 mEq/L 05/18/2021 Unk nown Comp Metabolic Uzr610 ANION GAP 11 05/18/2021 Unkn own Comp Metabolic Yuv048 GLUCOSE 80 mg/dL 05/18/2021 Unkn own Comp Metabolic Gpt568 Creat 0.7 mg/dL 05/18/2021 Unkn own Comp Metabolic Hgm686 eGFR 87 ml/min/1.73m2 05/18/20 21 Unknown Comp Metabolic Qtx999 BUN 9 mg/dL 05/18/2021 Unkn own Comp Metabolic Hge245 B/C Ratio 12.5 Ratio 05/18/2021 Unk nown Comp Metabolic Ddf482 CALCIUM 8.7 mg/dL 05/18/2021 Unkn own Comp Metabolic Sxr982 ALK PHOS 65 U/L 05/18/2021 Unkn own Comp Metabolic Nqf569 AST(SGOT) 9 U/L 05/18/2021 Unkn own Comp Metabolic Ztf740 ALT(SGPT) 7 U/L 05/18/2021 Unkn own Comp Metabolic Wgi398 BILI T 0.3 mg/dL 05/18/2021 Unkn own Comp Metabolic Vps751 ALBUMIN 4.0 g/dL 05/18/2021 Unkn own Comp Metabolic Sdd243 TPRO 6.0 g/dL 05/18/2021 Unkn own Comp Metabolic Egs245 GLOB 2.1 g/dL 05/18/2021 Unkn own Comp Metabolic Pur339 A/G Ratio 1.9 Ratio 05/18/2021 Unkn own Comp Metabolic Tlp781 Osmo 255 mOsmo 05/18/2021 Unkn own C-Reactive Protein Qnt Crqnt CRP 0.1 mg/dl 2020 Unknown Sed Rate Ord21 ESR 5 mm/hr 04/15/2021 Unknown Ra Factor Azr905 RA FACTOR <10 IU/ml 04/15/2021 Unknown CULTURE, [...] FOR MICROSCOPIC EXAM 12/2020 Unknown Urinalysis Ord28 U-Yeast QNS FOR MICROSCOPIC EXAM 12/2020 Unknown Urinalysis Ord28 U-Com CULTURE TO FOLLOW 12/22/2020 Unknown CULTURE, URINE M100 URINE CULTURE See [...] U-VOL VOLUME SUFFICIENT (10mL) Unknown Urinalysis Ord28 U-Com Culture to follow 07/14/2020 Unknown Urinalysis Ord28 U-Yeast NEGATIVE 07/14/2020 Unknown KATTY (DEMETRIUS) ROUTINE F307 Antinuclear Antibody Negative 06/28/2020 Unknown Ra Factor Raj187 RA FACTOR <10 IU/ml 06/25/2020 Unknown C-Reactive [...] 01/14/20 20 Unknown Cbc With Differential Ord2 [place]% 7.8 % 01/14/20 20 Unknown Cbc With [...] K/ul 020 Unknown Cbc With Differential Ord2 [place] ABS# 1.0 K/ul 01/14/20 20 Unknown Cbc With Differential Ord2 Eos ABS# 0.1 K/ul 01/14/20 20 Unknown Cbc With Differential Ord2 Baso ABS# 0.1 K/ul 01/14/20 20 Unknown Comp Metabolic Hnq314 NA 130 mEq/L 01/14/2020 Unkn own Comp Metabolic Tna528 K 4.6 mEq/L 01/14/2020 Unkn own Comp Metabolic Whu290 CL 92 mEq/L 01/14/2020 Unkn own Comp Metabolic Jga002 CO2 31.0 mEq/L 01/14/2020 Unk nown Comp Metabolic Yeb901 ANION GAP 12 01/14/2020 Unkn own Comp Metabolic Zsq001 GLUCOSE 81 mg/dL 01/14/2020 Unkn own Comp Metabolic Wpd621 Creat 0.8 mg/dL 01/14/2020 Unkn own Comp Metabolic Fuc882 eGFR 77 ml/min/1.73m2 01/14/20 20 Unknown Comp Metabolic Teh652 BUN 12 mg/dL 01/14/2020 Unkn own Comp Metabolic Hey005 B/C Ratio 15.0 Ratio 01/14/2020 Unk nown Comp Metabolic Ixg021 CALCIUM 9.2 mg/dL 01/14/2020 Unkn own Comp Metabolic Lvf102 ALK PHOS 71 U/L 01/14/2020 Unkn own Comp Metabolic Htl393 AST(SGOT) 13 U/L 01/14/2020 Unkn own Comp Metabolic Vxe498 ALT(SGPT) 11 U/L 01/14/2020 Unkn own Comp Metabolic Rzj596 BILI T 0.4 mg/dL 01/14/2020 Unkn own Comp Metabolic Fdu394 ALBUMIN 3.9 g/dL 01/14/2020 Unkn own Comp Metabolic Pwx617 TPRO 6.2 g/dL 01/14/2020 Unkn own Comp Metabolic Krb831 GLOB 2.3 g/dL 01/14/2020 Unkn own Comp Metabolic Dsc040 A/G Ratio 1.7 Ratio 01/14/2020 Unkn own Comp Metabolic Bcd612 Osmo 260 mOsmo 01/14/2020 Unkn own CULTURE, [...] CPT-4: G0444 07/24/2022 THER/PROPH/DIAG INJ SC/IM CPT-4: 24221 03/15/2022 ROCEPHIN, PER 250 MG CPT-4: J0696 03/15/2022 THER/PROPH/DIAG INJ SC/IM CPT-4: 44223 03/14/2022 ROCEPHIN, PER 250 MG CPT-4: J0696 03/14/2022 THER/PROPH/DIAG INJ SC/IM CPT-4: 47139 03/13/2022 ROCEPHIN, PER 250 MG CPT-4: J0696 03/13/2022 THER/PROPH/DIAG INJ SC/IM CPT-4: 91753 03/10/2022 ROCEPHIN, PER 250 MG CPT-4: J0696 03/10/2022 THER/PROPH/DIAG INJ SC/IM CPT-4: 75593 03/09/2022 ROCEPHIN, PER 250 MG CPT-4: J0696 03/09/2022 THER/PROPH/DIAG INJ SC/IM CPT-4: 41056 10/27/2021 ROCEPHIN, PER 250 MG CPT-4: J0696 10/27/2021 URINALYSIS NONAUTO W/O SCOPE CPT-4: 70964 05/18/2021 IIV4 VACC NO PRSV 0.5 ML IM CPT-4: 99845 04/08/2021 IIV4 VACC NO PRSV 0.5 ML IM CPT-4: 15099 04/08/2021 ADMIN INFLUENZA VIRUS VAC CPT-4: G0008 04/08/2021 TRIAMCINOLONE ACET INJ NOS 10 mg CPT-4: J3301 021 DRAIN/INJECT JOINT/BURSA CPT-4: 99782 11/17/2020 TRIAMCINOLONE ACET INJ NOS 10 mg CPT-4: J3301 021 IIV4 VACC NO PRSV 0.5 ML IM CPT-4: 32160 04/07/2020 ADMIN INFLUENZA VIRUS VAC CPT-4: G0008 04/07/2020 IIV4 VACC NO PRSV 0.5 ML IM CPT-4: 02778 04/07/2020 URINALYSIS NONAUTO W/O SCOPE CPT-4: 06129 03/16/2020 TRIAMCINOLONE ACET INJ NOS 10 mg CPT-4: J3301 020 THER/PROPH/DIAG INJ SC/IM CPT-4: 07081 03/11/2020 THER/PROPH/DIAG INJ SC/IM CPT-4: 90661 01/14/2020 ROCEPHIN, PER 250 MG CPT-4: J0696 01/14/2020 ROCEPHIN, PER 250 MG CPT-4: J0696 12/30/2019 THER/PROPH/DIAG INJ SC/IM CPT-4: 14699 12/30/2019 Vital Signs Date Vital 10/17/2022 Blood Pressure 1: 132/80 Code: 8480-6 Heart Rate 1: 96 bpm Height: 5'3" Code: 8302-2 SpO2: 96% Temperature: 36.1 (C) / 97.0 (F) 07/24/2022 Blood Pressure 1: 162/78 Code: 8480-6 BMI: 28.7 Code: 63923-8 Heart Rate 1: 89 bpm Height: 5'3" Code: 8302-2 SpO2: 100% Weight: 162 lb s Code: 29487-0 07/03/2022 Blood Pressure 1: 138/70 Code: 8480-6 Heart Rate 1: 72 bpm Height: Code: 8302-2 Respiratory Rate: 16 bpm SpO2: 95% Weight: 163 lbs Code: 13598-5 03/09/2022 Blood Pressure 1: 142/84 Code: 8480-6 BMI: 29.8 Code: 06134-4 Heart Rate 1: 87 bpm Height: 5'3" Code: 8302-2 SpO2: 98% Temperature: 3 6.3 (C) / 97.3 (F) Weight: 168 lbs Code: 34087-8 10/27/2021 Blood Pressure 1: 134/78 Code: 8480-6 BMI: 28.9 Code: 30803-6 Heart Rate 1: 88 bpm Height: 5'3" Code: 8302-2 SpO2: 97% Temperature: 3 6.1 (C) / 96.9 (F) Weight: 163 lbs Code: 91030-1 09/28/2021 Blood Pressure 1: 142/84 Code: 8480-6 BMI: 28.9 Code: 46378-9 Heart Rate 1: 67 bpm Height: 5'3" Code: 8302-2 SpO2: 96% Temperature: 3 5.9 (C) / 96.7 (F) Weight: 163 lbs Code: 82028-1 09/02/2021 Blood Pressure 1: 142/84 Code: 8480-6 BMI: 28.9 Code: 74553-9 Heart Rate 1: 95 bpm Height: 5'3" Code: 8302-2 SpO2: 99% Temperature: 3 6.3 (C) / 97.4 (F) Weight: 163 lbs Code: 66467-8 06/01/2021 Blood Pressure 1: 126/80 Code: 8480-6 BMI: 28.0 Code: 59158-8 Heart Rate 1: 84 bpm Height: 5'3" Code: 8302-2 SpO2: 96% Temperature: 3 6.2 (C) / 97.1 (F) Weight: 158 lbs Code: 50944-3 05/18/2021 Blood Pressure 1: 152/76 Code: 8480-6 Heart Rate 1: 68 bpm Height: Code: 8302-2 Temperature: 36.3 (C) / 97.3 (F) Weight: Code: 91741- 7 03/03/2021 Blood Pressure 1: 132/80 Code: 8480-6 Heart Rate 1: 88 bpm Height: Code: 8302-2 Weight: Code: 70724-9 02/01/2021 Blood Pressure 1: 146/82 Code: 8480-6 Heart Rate 1: 84 bpm Height: 5'3" Code: 8302-2 Respiratory Rate: 16 bpm SpO2: 98% Temperature: 36 .2 (C) / 97.2 (F) Weight: Code: 21639-0 11/17/2020 Blood Pressure 1: 140/80 Code: 8480-6 Heart Rate 1: 72 bpm Height: 5'3" Code: 8302-2 SpO2: 100% Temperature: 36.1 (C) / 97.0 (F) Weight: Code: 23760-4 10/29/2020 Blood Pressure 1: 126/74 Code: 8480-6 BMI: 28.7 Code: 04373-6 Heart Rate 1: 86 bpm Height: 5'3" Code: 8302-2 SpO2: 99% Temperature: 3 6.3 (C) / 97.3 (F) Weight: 162 lbs Code: 18898-3 09/22/2020 Blood Pressure 1: 138/72 Code: 8480-6 BMI: 28.9 Code: 96935-4 Heart Rate 1: 74 bpm Height: 5'3" Code: 8302-2 Temperature: 35.9 (C) / 96.7 (F) Weight: 163 lbs Code: 65544-8 08/20/2020 Blood Pressure 1: 148/80 Code: 8480-6 BMI: 28.2 Code: 44803-9 Heart Rate 1: 94 bpm Height: 5'3" Code: 8302-2 SpO2: 95% Temperature: 3 6.3 (C) / 97.3 (F) Weight: 159 lbs Code: 82777-7 07/22/2020 Blood Pressure 1: 160/80 Code: 8480-6 Bl ood Pressure 1: 142/76 Code: 8480-6 BMI: 27.8 Code: 34118-7 Heart Rate 1: 84 bpm Height: 5'3" Code: 8302-2 Respiratory Rate: 18 bpm SpO2: 97% Temperature: 36.4 (C) / 97.5 (F) We ight: 157 lbs Code: 83633-5 07/16/2020 Blood Pressure 1: 140/78 Code: 8480-6 BMI: 27.8 Code: 97114-3 Heart Rate 1: 86 bpm Height: 5'3" Code: 8302-2 SpO2: 97% Temperature: 3 6.3 (C) / 97.3 (F) Weight: 157 lbs Code: 18697-3 06/22/2020 Blood Pressure 1: 162/84 Code: 8480-6 BMI: 27.8 Code: 25889-1 Heart Rate 1: 93 bpm Height: 5'3" Code: 8302-2 Respiratory Rate: 16 bpm SpO2: 100% Temperature: 36.2 (C) / 97.1 (F) Weight: 157 lbs Code: 89818-6 05/24/2020 Height: Code: 8302-2 Weight: Code: 294 63-7 04/05/2020 Blood Pressure 1: 132/74 Code: 8480-6 BMI: 26.9 Code: 06377-8 Heart Rate 1: 74 bpm Height: 5'3" Code: 8302-2 Weight: 152 lbs Code: 38973 -7 03/22/2020 Height: Code: 8302-2 Weight: Code: 294 63-7 03/16/2020 Height: Code: 8302-2 Weight: Code: 294 63-7 03/15/2020 Blood Pressure 1: 140/76 Code: 8480-6 Heart Rate 1: 82 bpm Height: 5'3" Code: 8302-2 SpO2: 97% Temperature: 37.2 (C) / 99.0 (F) 03/11/2020 BMI: 26.9 Code: 78031-1 Heart Rate 1: 80 bpm Hei ght: 5'3" Code: 8302-2 Weight: 152 lbs Code: 21335-1 02/17/2020 Blood Pressure 1: 134/72 Code: 8480-6 BMI: 27.3 Code: 46029-2 Heart Rate 1: 84 bpm Height: 5'3" Code: 8302-2 Respiratory Rate: 16 bpm SpO2: 96% Temperature: 36.2 (C) / 97.1 (F) Weight: 154 lbs Code: 99453-1 01/14/2020 Blood Pressure 1: 122/74 Code: 8480-6 Heart Rate 1: 87 bpm Height: Code: 8302-2 SpO2: 99% Temperature: 36.4 (C) / 97.6 (F) Weight: Code: 00305-3 12/30/2019 Height: Code: 8302-2 Weight: Code: 294 63-7 12/02/2019 Blood Pressure 1: 148/86 Code: 8480-6 BMI: 27.3 Code: 23583-9 Heart Rate 1: 96 bpm Height: 5'3" Code: 8302-2 SpO2: 98% Temperature: 3 7.2 (C) / 98.9 (F) Weight: 154 lbs Code: 99505-5 11/06/2019 Blood Pressure 1: 146/78 Code: 8480-6 BMI: 27.3 Code: 14752-3 Heart Rate 1: 94 bpm Height: 5'3" Code: 8302-2 SpO2: 98% Temperature: 3 6.3 (C) / 97.3 (F) Weight: 154 lbs Code: 98934-6 Functional Status No Functional Status data Reason [...] Encounter Performer Location Location Address Codes Date ([id number]) [id number] EST. PATIENT, LEVEL III Diagnosis: Compression fracture of L3 vertebra, initial encounter[ICD10: S32.030A] Diagnosis: Compression fracture of L5 vertebra, initial encounter[ICD10: S32.050A] [facility] [address] [place] [address] CPT-4: 29948 10/17/2022 ([id number]) 91097 EST. PATIENT, LEVEL III Diagnosis: Essential (primary) hypertension[ICD10: I10] [facility] [address] [place] [address] CPT-4: 9921 3 07/03/2022 ([id number]) 63002 EST. PATIENT, LEVEL IV Diagnosis: Essential (primary) hypertension[ICD10: I10] Diagnosis: Dysuria[ICD10: R30.0] Diagnosis: Urinary tract infection[ICD10: N39.0] Rubina Demarco MD, [facility] [address] [place] [address] CPT-4: 9921 4 03/09/2022 ([id number]) 89830 EST. PATIENT, LEVEL I Diagnosis: Urinary tract infection[ICD10: N39.0] Rubina Demarco MD, [facility] [address] [place] [address] CPT-4: 9921 1 12/02/2021 ([id number]) 95035 EST. PATIENT, LEVEL IV Diagnosis: Essential (primary) hypertension[ICD10: I10] Diagnosis: Non-traumatic compression fracture of L5 lumbar vertebra with routine healing, subsequent encounter[ICD10: M48.56XD] Diagnosis: Other chronic pain[ICD10: G89.29] Diagnosis: Dysuria[ICD10: R30.0] Diagnosis: Urinary tract infection[ICD10: N39.0] Rubina Demarco MD, [facility] [address] [place] [address] CPT-4: 9921 4 10/27/2021 ([id number]) 94292 EST. PATIENT, LEVEL IV Diagnosis: Essential (primary) hypertension[ICD10: I10] Diagnosis: Chronic back pain[ICD10: M54.9] Diagnosis: Nontraumatic compression fracture of L5 vertebra, initial encounter[ICD10: M48.56XA] Rubina Demarco MD, [facility] [address] [place] [address] CPT-4: 58922 09/28/2021 ([id number]) 06694 EST. PATIENT, LEVEL III Diagnosis: Other allergic rhinitis[ICD10: J30.89] Ara Stewart MD, [facility] [address] [place] [address] CPT-4: 9921 3 09/02/2021 ([id number]) 11510 EST. PATIENT, LEVEL IV Diagnosis: Essential (primary) hypertension[ICD10: I10] Diagnosis: Other chronic pain[ICD10: G89.29] Diagnosis: Chronic idiopathic constipation[ICD10: K59.04] Diagnosis: Hyponatremia[ICD10: E87.1] Rubina Demarco MD, [facility] [address] [place] [address] CPT-4: 67501 06/01/2021 ([id number]) 11720 EST. PATIENT, LEVEL IV Diagnosis: Essential (primary) hypertension[ICD10: I10] Diagnosis: Age-related osteoporosis without current pathological fracture[ICD10: M81.0] Diagnosis: Dysuria[ICD10: R30.0] Diagnosis: Oral candidiasis[ICD10: B37.0] Whitney Demarco MD, [facility] [address] [place] [address] CPT-4: 40128 05/18 ([id number]) Miscellaneous no charge Diagnosis: Laceration of right lower leg[ICD10: S81.811A] Rubina Demarco MD, [facility] [address] [place] [address] CPT-4: 9999 9 03/11/2021 ([id number]) 13204 EST. PATIENT, LEVEL I Diagnosis: Laceration of left lower leg[ICD10: S81.812A] Diagnosis: Laceration of right lower leg[ICD10: S81.811A] Rubina Demarco MD, [facility] [address] [place] [address] CPT-4: 9921 1 03/04/2021 ([id number]) 15390 EST. PATIENT, LEVEL III Diagnosis: Laceration of right lower leg[ICD10: S81.811A] Diagnosis: Laceration of left lower leg[ICD10: S81.812A] Ara Demarco MD, [facility] [address] [place] [address] CPT-4: 9921 3 03/03/2021 ([id number]) 52943 EST. PATIENT, LEVEL IV Diagnosis: Essential (primary) hypertension[ICD10: I10] Diagnosis: Low back pain[ICD10: M54.5] Diagnosis: Chronic back pain[ICD10: M54.9] Rubina wills MD, [facility] [address] [place] [address] CPT-4: 9921 4 02/01/2021 61762 EST. PATIENT, LEVEL III Diagnosis: Pain of right sacroiliac joint[ICD10: M53.3] Diagnosis: Chronic back pain[ICD10: M54.9] Samara Demarco MD , [facility] [address] [place] [address] CPT-4: 49854 11/17 ([id number]) 29253 EST. PATIENT, LEVEL III Diagnosis: Pain of left sacroiliac joint[ICD10: M53.3] Diagnosis: Low back pain[ICD10: M54.5] Diagnosis: Nicotine dependence, cigarettes, uncomplicated[ICD10: F17.210] Ara Demarco MD, [facility] [address] [place] [address] CPT-4: 53129 10/29/2020 ([id number]) 94438 EST. PATIENT, LEVEL IV Diagnosis: Essential (primary) hypertension[ICD10: I10] Diagnosis: Weakness[ICD10: R53.1] Diagnosis: Generalized osteoarthritis[ICD10: M15.9] Diagnosis: Fibromyalgia[ICD10: M79.7] Rubina Demarco MD, [facility] [address] [place] [address] CPT-4: 37022 09/22/2020 ([id number]) 47777 EST. PATIENT, LEVEL III Diagnosis: Essential (primary) hypertension[ICD10: I10] Ara Demarco MD, [facility] [address] [place] [address] CPT-4: 9921 3 08/20/2020 ([id number]) 58731 EST. PATIENT, LEVEL III Diagnosis: Essential (primary) hypertension[ICD10: I10] Rubina Demarco MD, [facility] [address] [place] [address] CPT-4: 9921 3 07/22/2020 ([id number]) 57666 EST. PATIENT, LEVEL III Diagnosis: Dysuria[ICD10: R30.0] Diagnosis: Benign paroxysmal positional vertigo, bilateral[ICD10: H81.13] Ara Demarco MD, [facility] [address] [place] [address] CPT-4: 16826 07/16/2020 ([id number]) 63036 EST. PATIENT, LEVEL IV Diagnosis: Essential (primary) hypertension[ICD10: I10] Diagnosis: Chronic back pain[ICD10: M54.9] Diagnosis: Weakness[ICD10: R53.1] Diagnosis: Fibromyalgia[ICD10: M79.7] Diagnosis: Generalized osteoarthritis[ICD10: M15.9] Diagnosis: Breast pain, left[ICD10: N64.4] Rubina wills MD, [facility] [address] [place] [address] CPT-4: 9921 4 06/22/2020 ([id number]) 70096 EST. PATIENT, LEVEL III Diagnosis: Cough[ICD10: R05] Diagnosis: Acute recurrent maxillary sinusitis[ICD10: J01.01] [facility] [address] [place] [address] CPT-4: 9921 3 05/24/2020 86989 EST. PATIENT, LEVEL III Diagnosis: Benign paroxysmal positional vertigo, bilateral[ICD10: H81.13] Diagnosis: Weakness[ICD10: R53.1] Diagnosis: Imbalance[ICD10: R26.89] Diagnosis: Frequent falls[ICD10: R29.6] Samara Demarco MD, [facility] [address] [place] [address] CPT-4: 92434 04/05/2020 42867 EST. PATIENT, LEVEL III Diagnosis: Skin tear of right forearm without complication, subsequent encounter[ICD10: S51.811D] Diagnosis: Other allergic rhinitis[ICD10: J30.89] Diagnosis: Rib pain on left side[ICD10: R07.81] Samara Demarco MD, [facility] [address] [place] [address] CPT-4: 9921 3 03/22/2020 39686 EST. PATIENT, LEVEL II Diagnosis: Skin tear of right forearm without complication, subsequent encounter[ICD10: S51.811D] Diagnosis: Dysuria[ICD10: R30.0] Samara Demarco MD, [facility] [address] [place] [address] CPT-4: 46984 03/16/2020 84676 EST. PATIENT, LEVEL III Diagnosis: Right shoulder pain[ICD10: M25.511] Diagnosis: Right knee pain[ICD10: m25.561] Diagnosis: Skin tear of right forearm without complication[ICD10: S51.811A] Samara Demarco MD, [facility] [address] [place] [address] CPT-4: 39465 03/15/2020 36749 EST. PATIENT, LEVEL IV Diagnosis: Other acute sinusitis[ICD10: J01.80] Diagnosis: Other allergic rhinitis[ICD10: J30.89] Diagnosis: Right knee pain[ICD10: m25.561] Samara Demarco MD , [facility] [address] [place] [address] CPT-4: 49600 03/11 ([id number]) 19177 EST. PATIENT, LEVEL IV Diagnosis: Gastro-esophageal reflux disease without esophagitis[ICD10: K21.9] Diagnosis: Age-related osteoporosis without current pathological fracture[ICD10: M81.0] Diagnosis: Chronic back pain[ICD10: M54.9] Rubina wills MD, [facility] [address] [place] [address] CPT-4: 9921 4 02/17/2020 64004 EST. PATIENT, LEVEL III Diagnosis: Dysuria[ICD10: R30.0] Diagnosis: Hematuria[ICD10: R31.9] Samara Demarco MD, [facility] [address] [place] [address] CPT-4: 75057 01/14/2020 12451 EST. PATIENT, LEVEL III Diagnosis: Dysuria[ICD10: R30.0] Diagnosis: Other allergic rhinitis[ICD10: J30.89] Samara Stewart MD, [facility] [address] [place] [address] CPT-4: 9921 3 12/30/2019 17435 EST. PATIENT, LEVEL IV Diagnosis: Other acute sinusitis[ICD10: J01.80] Diagnosis: Other allergic rhinitis[ICD10: J30.89] Diagnosis: Cough[ICD10: R05] [facility] [address] [place] [address] CPT-4: 12796 12/02/2019 ([id number]) OFFICE VISIT, NEW - LEVEL 4 Diagnosis: Age-related osteoporosis without current pathological fracture[ICD10: M81.0] Diagnosis: Nasal sinus congestion[ICD10: R09.81] Diagnosis: Other chronic pain[ICD10: G89.29] Diagnosis: Chronic back pain[ICD10: M54.9] Diagnosis: Gastro-esophageal reflux disease without esophagitis[ICD10: K21.9] Rubina Demarco MD, [facility] [address] [place] [address] CPT-4: 60328 11/06/2019 Plan of Care Planned Activity Notes Codes Status Date Visit Plan: Compression fractures of L3 and L5 - patient is interested in kyphoplasty due to increased pain - will order MRI lumbar spine and then plan to refer to [facility] for evaluation- refill percocet to use prn as directed - patient verbalized understanding of plan. 10/17/2022 Patient Education: Patient Medication Summary Completed [...] DME 07/24/2022 Appointment: Ara Boland WPtel: [phone] [phone] [facility] - Annual Wellness Visit 11/2022 [...] well. 07/03/2022 [facility]ment[phone] (15 min) Moderate 07/03/2022 Patient Education: [...] pharmacy. 03/09/2022 App[facility]ment[phone] (30 min) Complex 03/09/2022 Patient Education: [...] fixation needed. 09/28/2021 App[facility]ment[phone] [phone] (15 min) Moderate 09/28/2021 Patient Education: Patient [...] spray. 09/02/2021 [phone] [phone] [place] (30 min) Complex 09/02/2021 Patient Education: Patient [...] week 06/01/2021 App[facility]ment[phone] [phone] [place] (15 min) Moderate 06/01/2021 Patient [...] adequate. 05/18/2021 App[facility]ment: [phone] [place] (30 min) Complex 05/18/2021 Patient Education: Patient Medication Summary Completed 05/18/2021 Patient Education: cephalexin- [employer] Coupon [id number] Completed 05/18/2021 Care Plan: Urine Culture Pending [...] has L1 re-fracture of previous compression fracture- 9-3-21 Hypertension - [...] outpatient services. 02/01/2021 App[facility]ment: [phone] [phone] [place] (15 min) Moderate 02/01/2021 Patient Education: Patient Medication Summary Completed 02/01/2021 Patient Education: Back Pain Completed 02/01/2021 Appointment: PollockRubina WPtel: [phone] 30 min appointments only in this slot [...] of injection. 11/17/2020 Appointment: Samara Cormier WPtel: [phone] (30 min) Complex 11/17/2020 Patient Education: Patient Medication Summary Completed 11/17/2020 Visit Plan: Sacroiliitis - kenalog injec tion today - back exercises discussed with the patient, pt to continue with anti-inflammatories. Pt is to call if the symptoms do not improve or if they worsen. Tobacco use- patient is due for low dose CT scan 10/29/2020 Appointment: Ara Boland WPtel: [phone] (15 min) Moderate 10/29/2020 Patient Education: Patient [...] only. 09/22/2020 Appointment: Rubina Demarco WPtel: [phone] [phone] (15 min) Moderate 09/22/2020 Patient [...] concerns. 08/20/2020 Appointment: Ara Boland WPtel: [phone] [phone] (15 min) Moderate 08/20/2020 Patient Education: Patient Medication Summary Completed 08/20/2020 Patient Education: Hypertension Completed 08/20/2020 Appointment: Rubina Demarco WPtel: [phone] [phone] (30 min) Complex 08/19/2020 Visit [...] bedtime. 07/22/2020 Appointment: Rubina Demarco WPtel: [phone] [phone] (30 min) Complex 07/22/2020 Patient Education: Patient Medication Summary Completed 07/22/2020 Visit Plan: Dysuria- history of UTI- rx for cipro sent to start over the weekend if needed -culture pending BPPV - continue meclizine as needed 07/16/2020 Appointment: Ara Boland WPtel: [address] [place], [place] [phone] (30 min) Complex 07/16/2020 Patient Education: Patient [...] [facility] because [place] has to stay in [place] 06/22/2020 Appointment: Rubina Demarco WPtel: [phone] (30 min) Complex 06/22/2020 Patient Education: Patient Medication Summary Completed 06/22/2020 Visit Plan: Sinusitis - Pt has acute inf ection - pain in face, maxillary region, Pt informed to use decongestant, RX given to patient, sinus rinses also recommended. Call if symptoms do not show improvement. 05/24/2020 Appointment: Ara Boland WPtel: [phone] [place] [address] 05/24/2020 Patient Education: Patient Medication Summary Completed [...] or concerns. 04/05/2020 Appointment: Samara Cormier WPtel: [address] [place], [place] [phone] (30 min) Complex 04/05/2020 Patient Education: Patient [...] or concerns. 03/22/2020 Appointment: Samara Cormier [facility]Ptel[facility] (15 min) Moderate 03/22/2020 Patient Education: Patient [...] warmth, discharge. 03/16/2020 Appointment: Samara [facility]ormier [facility]Ptel[facility] [phone] [facility] (15 min) Moderate 03/16/2020 Patient Education: Patient [...] warmth, discharge. 03/15/2020 Appointment: Samara Cormier WPtel: [phone] [facility] (15 min) Moderate 03/15/2020 Patient Education: Patient [...] improve. 03/11/2020 Appointment: Sam[facility]el[phone] (30 min) Complex 03/11/2020 Patient Education: Patient [...] Reclast 02/17/2020 Appointment: Rubina Demarco WPtel: [phone] [phone] [place] (15 min) Moderate 02/17/2020 Patient Education: Patient Medication Summary Completed 02/17/2020 Visit Plan: Hematuria- unable to do UA - will culture 02/09/2020 Appointment: Lab Draw 02/09/2020 Patient Education: Patient Medication Summary Completed 02/09/2020 Care Plan: Urine Culture Pending Appointment: Samara Cormier WPtel: [phone] [facility] [place] (30 min) Complex 01/14/2020 Patient Education: Patient Medication Summary Completed 01/14/2020 Care Plan: Urine Culture Pending Appointment: Samara Cormier WPtel: [phone] [facility] [place] (10 min) Simple 12/30/2019 Patient Education: [...] WPtel: [phone] [facility] [place] (30 min) Complex 12/02/2019 Patient Education: Patient [...] bisphosphonate until she is seen by the Adult Crossing Guard at [facility]. Esophageal Reflux - the patient has [...] Education: Patient Medication Summary Completed 11/06/2019 Referral: [facility] Referral Appointment Requested Instructions Comment Date mri lumbar spine then refer to ortho 4 s sonja . Compression fractures of L3 and L5 - p atient is interested in kyphoplasty due to increased pain - will order MRI lumbar spine and then plan to refer to Ortho 4 [facility] for evaluation- refill percocet to use prn [...] week we will send a referral to [facility] for aqua therapy . Hypertension - [...] Back pain - chronic - referral to [facility] - has L1 [...] bisphosphonate until she is seen by the Adult Crossing Guard at [facility]. Esophageal Reflux - the patient has [...]
--- NOTE | 2022-12-05 15:55 | Occupational Therapy Eval ---
OT Evaluation-General/PLF Medical Diagnosis Admission Date Dec 05, 2022 at 15:20 Medical Diagnosis: pathological spinal fx/ oseoporosis Onset Date: Dec 05, 2022 Therapy Diagnosis Therapy Diagnosis: BUE weakness Height/Weight Height (Feet): 5 Height (Inches): 4.00 Weight (Pounds): 165 Weight (Ounces): 0.0 Precautions Precautions/Isolations: Standard Precautions Comments LSO [place] brace, spinal precautions, may shower Weight Bear Status Weight Bearing Restriction: Weight Bearing/Tolerated Referral Referral Reason: Activity Tolerance, Self Care, Evaluation/Treatment, Strengthening/ROM Medical History Pertinent Medical History: HTN Additional Medical History Osteoporosis, UTIs, HTN, hyponatremia,, GERD, IBS, spinal stenosis, LBP, Fall at home 12/04/22 ACDF, vertebroplaasty, kyphoplasty, spinal stimulator Current History BUE tremors, family present during admission process Reviewed History: Yes Social History Home: Single Level Current Living Status: Alone Entry Into Home: Level Entry CG 8 hours 5 days/week no weekends ADL-Prior Level of Function SCALE: Activities may be completed with or without assistive devices. 7-Uuwqfbnnrr-odmnrpe completes the activity by him/herself with no assistance from a helper. 5-Set-up or Clean-up Assistance-helper sets up or cleans up; patient completes activity. [place] assists only prior to or following the activity. 4-Supervision or Touching Assistance-helper provides verbal cues and/or touching/steadying and/or contact guard assistance as patient completes activity. Assistance may be provided throughout the activity or intermittently. 3-Partial/Moderate Assistance-helper does LESS THAN HALF the effort. [place] lifts, holds or supports trunk or limbs, but provides less than half the effort. 2-Substantial/Maximal Assistance-helper does MORE THAN HALF the effort. [place] lifts or holds trunk or limbs and provides more than half the effort. 8-Krztpjofp-kstcwy does ALL the effort. Patient does none of the effort to complete the activity. Or, the assistance of 2 or more helpers is required for the patient to complete the activity. If activity was not attempted, code reason: 7-Patient Refused. 9-Not Applicable-not attempted and the patient did not perform the activity before the current illness, exacerbation or injury. 10-Not Attempted due to Environmental Limitations-(lack of equipment, weather restraints, etc.). 88-Not Attempted due to Medical Conditions or Safety Concerns. Self Care: Needed Some Help Functional Cognition: Needed Some Help DME/Equipment: Bath Chair, Grab Bars, Shower DME/Equipment Comments FWW, RW Drive Self: No OT Current Status Subjective Agreeable to OT, family present Pain Numeric Pain Scale: 5-Moderate Pain Location Body Site: Back Mental Status/Objective Patient Orientation: Person, Place, Time, Situation Current Upper Extremity ROM BUE ROM WFLS for ADLS, limited cervical rotation and bilateral flexion Upper Extremity Coordination Inconsistent coordination w/ task w/ observation of tasks completion vs patient verbalizing inability Upper Extremity Strength Limited strength d/t spinal precautions ADL-Treatment Eating (QC): 6 Oral Hygiene (QC): 5 Shower/Bathe Self (QC): 2 Upper Body Dressing (QC): 2 Lower Body Dressing (QC): 2 On/Off Footwear (QC): 1 Toileting Hygiene (QC): 1 Easily distracted, requires multiple cues Education OT Patient Education: Correct positioning, Instructions don/doff splint/brace, Modified ADL techniques, Progress toward Goal/Update tx plan, Purpose of tx/functional activities, Reviewed precautions, Rehab process, Safety issues, Transfer techniques, Use of adapted equipment, W/C management Teaching Recipient: Patient Teaching Methods: Demonstration, Discussion Response to Teaching: Reinforcement Needed BIMS CAM BIMS Expression of Ideas and Wants: Without Difficulty Understanding Verbal Content: Understands Brief Interview/Mental Status: No IRF MANJU BIMS: IRF MANJU BIMS Response (Comments) Value Repitition of Three Words Three 3 Recalls Socks Yes, After Cueing (Wear) 1 Recalls Blue Yes, No Cue Required 2 Recalls Bed No, Could Not Recall 0 Year Correct 3 Month Accurate Within 5 Days 2 Day Correct 1 Total 12 Patient Normally Able to Recal: Current Session, That he/she in a hsp Should Staff Asses. Mental St.: No CAM Mental Status Change/Baseline: 0 Inattention: 2 Disorganized thinkin Altered level of consciousness: 0 OT Short Term Goals Short Term Goals Time Frame: Dec 06, 2022 Eatin Oral hygiene: 6 Toileting hygiene: 4 OT Fci Goals Fci Goals Eating (QC): 6 Oral Hygiene (QC): 6 Toileting Hygiene (QC): 6 (w/ AD) Shower/Bathe Self (QC): 4 Upper Body Dressing (QC): 5 Lower Body Dressing (QC): 5 On/Off Footwear (QC): 5 1=Demonstrate adherence to instructed precautions during ADL tasks. 2=Patient will verbalize/demonstrate understanding of assistive devices/modifications for ADL. 3=Patient will improve strength/tolerance for activity to enable patient to perform ADL's. OT Education/Plan Problem List/Assessment Assessment: Decreased Activ Tolerance, Decreased Safety Aware, Decreased UE Strength, Impaired Bed Mobility, Impaired Cognition, Impaired Coordination, Impaired Funct Balance, Impaired I ADL's, Impaired Self-Care Skills, Restricted Funct UE ROM Discharge Recommendations Plan/Recommendations: Continue POC Treatment Plan/Plan of Care Treatment,Training & Education: Yes Patient would benefit from OT for education, treatment and training to promote independence in ADL's, mobility, safety and/or upper extremity function for ADL's. Plan of Care: ADL Retraining, Cognitive Retraining, Concurrent Therapy, Functional Mobility, Group Exercise/Act as Ind, Orthotic Fitting/Training, UE Funct Exercise/Act, UE Neuromus Re-Ed/Coord Treatment Duration: Jan 05, 2023 Frequency: At least 5 of 7 days/Wk (IRF) Estimated Hrs Per Day: 1.5 hours per day Agreement: Yes Rehab Potential: Good Time Start Time: 15:20 Stop Time: 15:22 DATE: Dec 05, 2022 Total Time Billed (hr/min): 12 Billed Treatment Time EVM 12 min RASHAWN GRACE OT Dec 05, 2022 15:55
[2022-12-05] MEDS ORDERED: diphenhydrAMINE 25 MG TAB (BENADRYL) PO PRN (16:00)
[2022-12-05] MEDS ORDERED: BISACODYL 10 MG SUPP (DULCOLAX) PR PRN (16:00)
[2022-12-05] MEDS ORDERED: FLEET ENEMA ADULT 1 EA BTL PR PRN (16:00)
[2022-12-05] MEDS ORDERED: ALPRAZolam 0.25 MG (XANAX) TAB PO PRN (16:00)
[2022-12-05] MEDS ORDERED: DOCUSATE SODIUM 100 MG (COLACE) CAP PO PRN (16:00)
[2022-12-05] MEDS ORDERED: guaiFENesin/CODEINE (ROBITUSSIN AC) 10ML UDC PO PRN (16:00)
[2022-12-05] MEDS ORDERED: AZELASTINE HCL NSEACH SCH (16:00)
[2022-12-05] MEDS ORDERED: CALCIUM CARBONATE 500 MG (TUMS) TAB.CHEW PO PRN (16:00)
[2022-12-05] MEDS ORDERED: LOPERAMIDE 2 MG (IMODIUM) TABLET PO PRN (16:00)
[2022-12-05] MEDS ORDERED: LACTULOSE SYRUP 10GM/15ML (ENULOSE) 30ML UDC PO PRN (16:00)
[2022-12-05] MEDS ORDERED: MELATONIN 3 MG TABLET PO PRN (16:00)
--- NOTE | 2022-12-05 16:01 | PM&R Post Admission Assessment ---
PM&R HP Date of Visit: Dec 05, 2022 Time of Visit: 18:00 History of Present Illness Chief complaint: Compression fractures from T11-L2 HPI: This is a 66-year-old female of Dr. Key who has a past medical history of osteoporosis, hypertension, anxiety, bipolar presented to ARU from [facility] following a fall and sustaining compression fractures from T11-L2. she required neurosurgery consultation compression fractures but they did not recommend surgical management. She does have a prior history of repair and pain control with holding managed with fentanyl patch and gabapentin. She does have an allergy to hydrocodone and Ativan and morphine. She is having some issues with encephalopathy due to to pain medication. We will hold: Decreasing gabapentin in order to clear her thought process and maintain fentanyl patch of 12 mcg. Past Xgvhddp-Dyzdlw-Dfvhfi Hx Past Med/Social Hx: Reviewed Nursing Past Med/Soc Hx, Reviewed and Corrections made Patient Social History Marrital Status: single Employed/Student: retired Alcohol Use: Denies Use Smoking Status: Never a Smoker Type Used: Cigarettes 2nd Hand Smoke Exposure: No Recent Hopitalizations: No Immunizations Up To Date Tetanus Booster (TDap): More than 5yrs Pediatric: No Date of Pneumonia Vaccine: Apr 23, 2018 Date of Influenza Vaccine: Mar 19, 2019 Seasonal Allergies Seasonal Allergies: Yes Past Medical History Surgeries: Adenoidectomy, Appendectomy, Bladder Surgery, Eye Surgery, Gallbladder, Hysterectomy, Oophorectomy, Tonsillectomy Cardiac: Chronic Edema/Swelling, Hypertension Neurological: Headaches /Migraines, Vertigo Reproductive: No Sexually Transmitted Disease: No HIV/AIDS: No Female Reproductive Disorders: Ovarian Cyst Hysterectomy, Menopausal Genitourinary: Bladder Infection, UTI-Chronic Gastrointestinal: Gastroesophageal Reflux, Diverticulosis, Polyps, Irritable Bowel Musculoskeletal: Degenerate Disk Disease, Osteoporosis, Arthritis, Fibromyalgia, Chronic Back Pain, Fractures HEENT: Cataract Loss of Vision: Bilateral Hearing Impairment: Denies Psychosocial: Anxiety, Suicide Attempts, Bipolar, Depression History of Blood Disorders: No Adverse Reaction to Blood Fraire: No (N/A) Family History Alcoholism 19 FATHER Alzheimer's disease 19 MOTHER Arthritis 19 FATHER 19 MOTHER Cardiovascular disease 19 FATHER (massive heart attack) 19 MOTHER (Mitrial valve prolapse, Stroke Multi.) Cataracts G8 SISTER Completed stroke 19 MOTHER Deafness or hearing loss G8 SISTER Dementia 19 MOTHER Diabetes mellitus 19 MOTHER Fibrocystic disease of breast G8 SISTER Hypercholesterolemia 19 FATHER 19 MOTHER G8 BROTHER G8 SISTER G8 SISTER Osteoporosis G8 SISTER Seizure disorder 19 FATHER Severe allergy G8 BROTHER G8 SISTER Thyroid disease 19 MOTHER G8 BROTHER G8 SISTER G8 SISTER No Family History of: AIDS Abdominal aortic aneurysm [place]'s disease Aphasia Asthma Cancer of mouth Colon cancer Congenital disease Coronary thrombosis Cystic fibrosis Drug abuse Dysphasia Glaucoma Headache disorder Hypertension Infertility Kidney disease Not obtainable due to adoption Parkinson's disease Prostate cancer Psychosocial problem Respiratory disorder Tuberculosis No Pertinent Family Hx SOCIAL HISTORY: -SMOKES 1 PPD -ETOH-DENIES USE -DRUGS-DENIES USE PAST SURGICAL HISTORY: -CERVICAL SPINE FUSION -CHOLECYSTECTOMY -APPENDECTOMY -HYSTERECTOMY/BILATERAL SALPINGO-OOPHORECTOMY -TONSILLECTOMY/ADENOIDECTOMY -BLADDER SUSPENSION -CYSTOCOELE/RECTOCOELE REPAIRCYSTOSCOPIES/URETHRAL DILATIONS -KYPHOPLASTY L2 11/[address] CHIN AT [address] -CYSTOSCOPY/URETHRAL DILATION/RETROGRADE DYE TEST 02/02/[address] GARCIA IN [place] PM&R Allergy/Meds/Data Review Allergies Coded Allergies: iodine (Verified Allergy, Severe, HIVES, 05/24/19) morphine (Verified Allergy, Severe, HIVES, 05/24/19) hydrocodone (Verified Allergy, Intermediate, Itching, 05/24/19) hydromorphone (Verified Allergy, Unknown, 02/26/21) sulfamethoxazole (Verified Allergy, Unknown, 02/26/21) trimethoprim (Verified Allergy, Unknown, 02/26/21) Home Medications Scheduled Azelastine HCl (Azelastine HCl), 1-2 SPR NSEACH 2-3 TIMES DAILY, (Reported) B Complex with Vitamin C (B-Complex with C), 1 EACH PO DAILY, (Reported) Baclofen (Baclofen), 20 MG PO BID, (Reported) Biotin (Biotin), 1,000 MCG PO DAILY, (Reported) Bupropion HCl (Bupropion Xl), 300 MG PO DAILY, (Reported) Calcitonin,[place],Synthetic (Calcitonin-[place]), 1 SPRAY NA DAILY, (Reported) Calcium Carbonate (Calcium Carbonate), 500 MG PO DAILY, (Reported) Cholecalciferol (Vitamin D3) (Vitamin D3), 50 MCG PO DAILY, (Reported) Cranberry Conc/Ascorbic Acid (Cranberry Plus Vitamin C Sftgl), 1 EACH PO DAILY, (Reported) Dicyclomine HCl (Dicyclomine HCl), 20 MG PO TID, (Reported) Divalproex Sodium (Divalproex Sodium), 500 MG PO TID, (Reported) Docusate Sodium (Docusate Sodium), 100 MG PO BID, (Reported) Estradiol (Estradiol), 1 APPLIC VG 3XWEEKLY, (Reported) Famotidine (Famotidine), 20 MG PO BID, (Reported) Fentanyl (Fentanyl Patch 12 MCG), 12 MCG TD Q72H, (Reported) Fluticasone Propionate (Fluticasone Propionate), 2 SPRAYS NSEACH DAILY, (Reported) Furosemide (Furosemide), 20 MG PO DAILY, (Reported) Gabapentin (Neurontin), 300 MG PO BID, (Reported) Gabapentin (Gabapentin), 100 MG PO HS, (Reported) L.acidoph & Paracasei,B.lactis (Probiotic), 1 EACH PO DAILY, (Reported) Levocetirizine Dihydrochloride (Levocetirizine Dihydrochloride), 5 MG PO DAILY, (Reported) Levomilnacipran Hydrochloride (F[place]ima), 80 MG PO DAILY, (Reported) Metoprolol Succinate (Metoprolol Succinate), 50 MG PO DAILY, (Reported) Montelukast Sodium (Montelukast Sodium), 10 MG PO HS, (Reported) Multivitamin/Iron/Folic Acid (Multivitamin with Iron Tablet), 1 EACH PO DAILY, (Reported) Naproxen (Naproxen), 500 MG PO BID, (Reported) Pantoprazole Sodium (Pantoprazole Sodium), 40 MG PO DAILY, (Reported) Polyethylene Glycol 3350 (Miralax), 17 GM PO DAILY, (Reported) Triamterene/Hydrochlorothiazid (Triamterene-Hctz 37.5-25 mg Tb), 1 EA PO DAILY, (Reported) Vit A & D3 in Cod Liver Oil (Gnp [place] Cod Liver Oil), 1 EACH PO DAILY, (Reported) Vit A,C & E/Lutein/Minerals (Healthy Eyes Tablet), 1 EACH PO DAILY, (Reported) Scheduled PRN Hydroxyzine HCl (Hydroxyzine HCl), 10 MG PO TID PRN for ANXIETY, (Reported) Discontinued Medications Bupropion HCl (Wellbutrin Xl), 300 MG PO DAILY, (Reported) Discontinued Reason: Duplicate Order C,E,Zinc,Copper 11/Efskc6u/Lut (Ocuvite Adult 50 Plus Softgel), 1 EACH PO DAILY, (Reported) Discontinued Reason: Duplicate Order Calcium Carbonate (Calcium), 1,200 MG PO DAILY, (Reported) Discontinued Reason: Prescription changed Cefdinir (Cefdinir), 300 MG PO BID Discontinued Reason: Duplicate Order Cephalexin (Cephalexin), 500 MG PO TID Discontinued Reason: Duplicate Order Cephalexin (Cephalexin), 500 MG PO QID Discontinued Reason: Duplicate Order Cholecalciferol (Vitamin D3) (Vitamin D), 3,000 UNIT PO DAILY, (Reported) Discontinued Reason: Prescription changed Ciprofloxacin HCl (Ciprofloxacin HCl), 500 MG PO BID Discontinued Reason: Duplicate Order Divalproex Sodium (Divalproex Sodium ER), 1,000 MG PO HS, (Reported) Discontinued Reason: Duplicate Order Docusate Sodium (Colace), 100 MG PO DAILY Discontinued Reason: Duplicate Order Estradiol (Estradiol Tablet), 2 MG PO DAILY, (Reported) Discontinued Reason: Duplicate Order Estradiol (Vagifem), 10 MCG VG MoFr, (Reported) Discontinued Reason: Duplicate Order Furosemide (Lasix), 20 MG PO DAILY Discontinued Reason: Duplicate Order Gabapentin (Gabapentin), 300 MG PO BID, (Reported) Discontinued Reason: Duplicate Order Ibuprofen (Ibuprofen), 600 MG PO Q6H PRN for PAIN-MILD, (Reported) Discontinued Reason: Duplicate Order Methocarbamol (Methocarbamol), 750 MG PO Q6-8HR Discontinued Reason: Duplicate Order Mometasone Furoate (Mometasone Furoate), 1 SPRAY NSEACH DAILY, (Reported) Discontinued Reason: Duplicate Order Multivitamins-Min/FA/Ginkgo (One Daily For Women 50+ Adv Tb), 1 EACH PO DAILY, (Reported) Discontinued Reason: Duplicate Order Oxycodone HCl/Acetaminophen (Percocet 5-325 mg Tablet), 1 TAB PO Q4H Discontinued Reason: Duplicate Order Oxycodone HCl/Acetaminophen (Oxycodone-Acetaminophen 5-325), 1 EACH PO Q4H PRN for PAIN-SEVERE Discontinued Reason: Duplicate Order Phenazopyridine HCl (Pyridium), 100 MG PO Q8H PRN for SPASMS Discontinued Reason: Duplicate Order Phenazopyridine HCl (Pyridium), 1 TAB PO TID Discontinued Reason: Duplicate Order Potassium Chloride (Potassium Chloride), 10 MEQ PO DAILY Discontinued Reason: Duplicate Order Selenomethionine (Selenium), 200 MCG PO DAILY, (Reported) Discontinued Reason: Duplicate Order Simethicone (Gas-X), 125 MG PO PRN PRN for GAS, (Reported) Discontinued Reason: Duplicate Order Tramadol HCl (Tramadol HCl), 50 MG PO Q6H PRN for PAIN-MILD (1-4), (Reported) Discontinued Reason: Duplicate Order Current Medications Current Medications Reviewed Review of Systems Constitutional: see HPI, dizziness, malaise, weakness EENTM: no symptoms reported Respiratory: no symptoms reported Cardiovascular: no symptoms reported Gastrointestinal: constipation Genitourinary: no symptoms reported Musculoskeletal: back pain Skin: no symptoms reported Psychiatric/Neurological: Anxiety, Depressed, Emotional Problems All Other Systems Reviewed Negative Unless Noted: Yes Physical Exam Physical Exam Vital Signs Capillary Refill : Height, Weight, BMI Height: 5'4.00" Weight: 165lbs. 0.0oz. 74.653142st; 28.00 BMI Method:Stated General Appearance: No Apparent Distress, WD/WN, Chronically ill, Thin, Other (Frail and pale) Eyes: Bilateral Eye Normal Inspection, Bilateral Eye PERRL HEENT: PERRL/EOMI, Normal ENT Inspection, Pharynx Normal Neck: Full Range of Motion, Normal Inspection, Non Tender, Supple, Carotid Bruit Respiratory: Chest Non Tender, Lungs Clear, Normal Breath Sounds, No Accessory Muscle Use, No Respiratory Distress Cardiovascular: Regular Rate, Rhythm, No Edema, No Gallop, No JVD, No Murmur, Normal Peripheral Pulses Gastrointestinal: Normal Bowel Sounds, No Organomegaly, No Pulsatile Mass, Non Tender, Soft Back: CVA Tenderness (L), CVA Tenderness (R), Decreased Range of Motion, Muscle Spasm, Vertebral Tenderness Extremity: Normal Capillary Refill, Normal Inspection, Normal Range of Motion, Non Tender, No Calf Tenderness, No Pedal Edema Neurologic/Psychiatric: Alert, Oriented x3, Normal Mood/Affect, linoleum floor layer II-XII Norm as Tested, Abnormal Gait, Depressed Affect, Motor Weakness ( generalized especially lower extremities) Skin: Normal Color, Warm/Dry Lymphatic: No Adenopathy PM&R Medical Assessment & Plan REHAB/MEDICAL ASSESSMENT AND PLAN: REHAB IMPAIRMENT GROUP: Compression fractures T11-L2 ETIOLOGIC DIAGNOSIS: Compression fractures T11-L2 The comorbidities that impact the patients function and/or functional outcome by: severe compression fractures, severe pain, encephalopathy from pain meds and frail status, chronic fibromyalgia pain, mental illness REHAB PLAN: The patient is being admitted to our comprehensive inpatient rehabilitation facility and can tolerate the intensity of service consisting of at least: 180 minutes of therapy a day, 5 out of 7 days a week Rehab treatment will consist of: PT and OT will focus on regaining function with use of assistive devices decreased back pain working towards increasing stamina with independence with ADLs The patient/family has a good understanding of our discharge process and will benefit from an interdisciplinary inpatient rehabilitation program. The patient has potential to make improvement and is in need of at least two of the following multidisciplinary therapies including but not limited to physical, occupational, speech, and prosthetics and orthotics. Additionally the patient will need services from respiratory, nutritional services, wound care, psychology, etc. (Customize this to each patient). Given the patients complex condition and risk of further medical complications, rehabilitation services cannot be safely or effectively provided at a lower level of care such as a [facility] facility. BARRIERS TO DISCHARGE: severe pain ESTIMATED LOS: 10 days DISPOSITION: home RELEVANT CHANGES SINCE PREADMISSION SCREENING: I have compared the patients medical and functional status at the time of the preadmission screening and there are: no changes PROGNOSIS: fair REHABILITATION GOALS: 1.PT and OT will focus on regaining function with use of assistive devices decreased back pain working towards increasing stamina with independence with ADLs All the above goals were reviewed with the patient and he/she is in agreement. By signing this document, I acknowledge that I have personally performed a full physical examination on this patient within 24 hours of admission to this inpatient rehabilitation facility and have determined the patient to be able to tolerate the above course of treatment at an intensive level for a reasonable period of time. I will be completing a detailed individualized Plan of Care for this patient by day #4 of the patients stay based upon the Preadmission Screen, the Post-Admission Evaluation, and the therapy evaluations. Admission Dx/Comorbidities: (1) Compression fracture of L2 Status: Acute ICD Codes: S32.020A - Wedge compression fracture of second lumbar vertebra, initial encounter for closed fracture (2) Lumbar radiculopathy Status: Acute ICD Codes: M54.16 - Radiculopathy, lumbar region (3) Debility Status: Acute ICD Codes: R53.81 - Other malaise Assessment/Plan Assessment and Plan Assess & Plan/Chief Complaint Assessment: Compression fractures T11-L2 Fall Indwelling catheter Fibromyalgia Bipolar disorder UTIs Plan: Supportive care Pain control Lynch catheter to remain for 1 more day Home meds *Locked out of EMR most of day and was unable to sign this before 24 hours of admit due to technical difficulties* GABRIEL VIRGEN DO Dec 05, 2022 16:01
--- NOTE | 2022-12-05 16:16 | Physical Therapy Evaluation ---
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 Onset Date: Dec 05, 2022 Therapy Diagnosis Therapy Diagnosis: Weakness; Decreased functional mobility Height/Weight Height (Feet): 5 Height (Inches): 4.00 Weight (Pounds): 165 Weight (Ounces): 0.0 Precautions Precautions/Isolations: Fall Prevention, Standard Precautions spinal precautions Weight Bear Status Right Lower Extremity: Right Full Weight Bearing Left Lower Extremity: Left Full Weight Bearing Referral Physician: Roxana Reason for Referral: Evaluation/Treatment Medical History Pertinent Medical History: GERD, HTN Additional Medical History Osteoporosis, UTIs, HTN, anxiety, depression, hyponatremia, GERD, fibromyalgia, IBS, spinal stenosis, LBP Current History Fall @ home on 12/04/2022 with lumbar compression fx; transfer to ARU on 12/05/2022; [place] brace LTSO; spinal precautions Reviewed History: Yes Social History Home: Single Level Current Living Status: Alone Entry Into Home: Level Entry PT Steps Into Home: 0 PT Steps Inside Home: 0 Pt lives in a single story home with level entry; handicap accessible; assistance 8 hr/day, 5 days/week Prior Prior Level of Function SCALE: Activities may be completed with or without assistive devices. 8-Yatzrytaze-ysfbjqf completes the activity by him/herself with no assistance from a helper. 5-Set-up or Clean-up Assistance-helper sets up or cleans up; patient completes activity. [place] assists only prior to or following the activity. 4-Supervision or Touching Assistance-helper provides verbal cues and/or touching/steadying and/or contact guard assistance as patient completes activity. Assistance may be provided throughout the activity or intermittently. 3-Partial/Moderate Assistance-helper does LESS THAN HALF the effort. [place] lifts, holds or supports trunk or limbs, but provides less than half the effort. 2-Substantial/Maximal Assistance-helper does MORE THAN HALF the effort. [place] lifts or holds trunk or limbs and provides more than half the effort. 6-Zcichbmir-rzzrcd does ALL the effort. Patient does none of the effort to complete the activity. Or, the assistance of 2 or more helpers is required for the patient to complete the activity. If activity was not attempted, code reason: 7-Patient Refused. 9-Not Applicable-not attempted and the patient did not perform the activity before the current illness, exacerbation or injury. 10-Not Attempted due to Environmental Limitations-(lack of equipment, weather restraints, etc.). 88-Not Attempted due to Medical Conditions or Safety Concerns. Bed Mobility: 6 Transfers (B,C,W/C): 6 Gait: 6 Stairs: 9 Wheelchair Mobility: 9 Stairs: Not Applicalbe Prior Devices Use: Walker At [facility], pt was Mod I with stand-up walker; has FWW and 4WW PT Evaluation-Current Subjective Pt is agreeable to PT; reported R LE pain at 5/10 Pain Numeric Pain Scale: 5-Moderate Pain Location: Right Location Body Site: Hip Section J - Health Conditions 1. Rarely or not at all 2. Occasionally 3. Frequently 4. Almost constantly 8. Unable to answer Pain Effect on Sleep: 2 Pain Interference with Therapy: 4 Pain Interference w/Day-to-Day: 3 Pt/Family Goals Safely return home Objective Patient Orientation: Person, Confused, Place, Time, Situation Attachments: Lynch Catheter ROM/Strength ROM Upper Extremities WFL ROM Lower Extremities WFL Strength Upper Extremities WFL Strength Lower Extremities B LE MMT = 3+/5 grossly Integumentary/Posture Integumentary see nurses note Bowel Incontinence: No Bladder Incontinence: Lynch Cath Sensory Vision: Functional Hearing: Functional Hand Dominance: Left Sensation Right Upper Extremit: Intact Sensation Left Upper Extremity: Intact Sensation Right Lower Extremit: Intact Sensation Left Lower Extremity: Intact Transfers Roll Left & Right (QC): 3 (Mod A) Sit to Lying (QC): 3 (Mod A) Lying to Sitting/Side of Bed(Q: 3 (Mod A) Sit to Stand (QC): 3 (Min A) Chair/Aeu-hk-Xhtss Xfer(QC): 3 (Min A) Toilet Transfer (QC): 3 (Min A) Car Transfer (QC): 88 Gait Does the Patient Walk?: Yes Mode of Locomotion: Both Anticipated Mode of Locomotion: Walk Walk 10 feet (QC): 3 (Min A) Walk 50 ft with 2 Turns(QC): 88 Walk 150 ft (QC): 88 Walking 10ft/uneven surface-QC: 88 Gait Assistive Device: FWW Wheelchair Training Does the Pt Use a Wheelchair?: Yes Wheel 50 ft with 2 turns (QC): 3 (Mod A) Wheel 150 ft (QC): 88 Type of Wheelchair: Manual Stairs 1 Step (curb) (QC): 9 4 Steps (QC): 9 12 Steps (QC): 9 Walking Assistive Device: Walker Balance Sitting Static: Fair Sitting Dynamic: Fair Standing Static: Poor Standing Dynamic: Poor Picking up an Object (QC): 3 (Min A) Special Test Comments KU standing balance scale - 2/5 (goal = 4/5) Treatment Pt is extremely distracted and requires Max v/c for redirection. Bed mobility is Mod A. Transfers are Min A. Pt ambulated 10ft with the FWW and Min A (pts became very shaky and required Mod A to sit back in the w/c and not fall). Pt completed w/c mobility x 50ft with Mod A. Assessment/Needs Fair tolerance to PT; very talkative and distracted Rehab Potential: Fair Post Rehab Potential-Barriers: decreased mobility Equipment Needs N/A PT Intermediate Goals Intermediate Goals PT Intermediate Goals Time Frame: Dec 15, 2022 Roll Left to Right (QC): 4 (Pt will be SBA for functional mobility with the FWW to safely d/c home with assistance. ) Sit to Lying (QC): 4 (Pt will be SBA for functional mobility with the FWW to safely d/c home with assistance. ) Lying-Sitting on Side/Bed(QC): 4 (Pt will be SBA for functional mobility with the FWW to safely d/c home with assistance. ) Sit to Stand (QC): 4 (Pt will be SBA for functional mobility with the FWW to safely d/c home with assistance. ) Chair/Zok-ly-Bmqpd Xfer(QC): 4 (Pt will be SBA for functional mobility with the FWW to safely d/c home with assistance. ) Toilet/Commode Transfer (QC): 4 (Pt will be SBA for functional mobility with the FWW to safely d/c home with assistance. ) Car Transfer (QC): 4 (Pt will be SBA for functional mobility with the FWW to safely d/c home with assistance. ) Does the Patient Walk: Yes Walk 10 feet (QC): 4 (Pt will be SBA for functional mobility with the FWW to safely d/c home with assistance. ) Walk 10ft-Uneven Surface(QC): 4 (Pt will be SBA for functional mobility with the FWW to safely d/c home with assistance. ) Walk 50ft with 2 Turns (QC): 4 (Pt will be SBA for functional mobility with the FWW to safely d/c home with assistance. ) Walk 150 ft (QC): 4 (Pt will be SBA for functional mobility with the FWW to safely d/c home with assistance. ) Does the Pt use WC or Scooter?: Yes Wheel 50 feet with 2 turns (QC: 6 (Ind with w/c mobility ) Type: Manual Wheel 150 feet: 6 (Ind with w/c mobility ) Type: Manual 1 Step (curb) (QC): 9 4 Steps (QC): 9 12 Steps (QC): 9 Picking up an Object (QC): 4 (Pt will be SBA for functional mobility with the FWW to safely d/c home with assistance. ) KU standing balance scale goal = 4/5 PT Plan Problem List Problem List: Activity Tolerance, Functional Strength, Safety, Balance, Gait, Transfer, Bed Mobility Treatment/Plan Treatment Plan: Continue Plan of Care Treatment Plan: Bed Mobility, Concurrent Therapy, Education, Functional Activity Darrion, Functional Strength, Group Therapy, Gait, Safety, Therapeutic Exercise, Transfers Treatment Duration: Dec 15, 2022 Frequency: At least 5 of 7 days/Wk (IRF) Estimated Hrs Per Day: 1.5 hours per day Patient and/or Family Agrees t: Yes Safety Risks/Education Patient Education: Gait Training, Transfer Techniques, Reviewed Precautions, Correct Positioning, W/C Management, Safety Issues Teaching Recipient: Patient Teaching Methods: Demonstration, Discussion Response to Teaching: Reinforcement Needed Discharge Recommendations Therapy Discharge Recommendati: Home & Family Discharge Status/Home Program Cont per POC Barriers to Progress Weakness; anxiety; shakiness; highly distracted Target Placement home with assistance? if does not make good progress, possible SNF Time Time In: 1532 Time Out: 1545 DATE: Dec 05, 2022 Total Billed Treatment Time: 13 Total Billed Treatment 13 min BLAZE HINOJOSA PT Dec 05, 2022 16:16
--- NOTE | 2022-12-05 17:27 | Occupational Ther Daily Note ---
OT Current Status-Daily Note Subjective Pt found in room sitting on EOB, pt very lethargic, and difficult to keep awake. Pt agreed to PT/OT ([id number]) co-treat as long as pt can return to bed. ADL-Treatment PT/OT co-treat due skills of 2 clinicians required to decrease fall risk, increase activity tolerance, increase mobility and safety. PT focusing on ambulation, transfers and B LE strengthening while OT focusing on functional mobility, B UE placement during mobility, ADLs and B UE strengthening. Pt transferred from bed to wheelchair with Min/Mod A. Pt completed wheelchair mo bility approximately 50ft, HERNANDEZ providing min A, requiring max encouragement to complete tasks. Pt very easily distracted during treatment and needed max verbal cues to stay on task. Pt sat EOB to change gown and needed moderate assistance sitting up, to change, Pt doffed gown and needed verbal cues to find arm holes in gown and therapist tied gown in back. Pt refused shower, and reluctantly agreed to sponge bath and wiped upper half and lower half of body with set up assist, therapist handed pt wet wipe. Pt was dependent with footwear, therapist donned socks. Therapy Code Descriptions/Definitions Functional [place] Measure: 0=Not Assessed/NA 4=Minimal Assistance 1=Total Assistance 5=Supervision or Setup 2=Maximal Assistance 6=Modified [place] 3=Moderate Assistance 7=Complete IndependenceSCALE: Activities may be completed with or without assistive devices. 8-Jnphwammfn-sheihfj completes the activity by him/herself with no assistance from a helper. 5-Set-up or Clean-up Assistance-helper sets up or cleans up; patient completes a ctivity. [place] assists only prior to or following the activity. 4-Supervision or Touching Assistance-helper provides verbal cues and/or touching/steadying and/or contact guard assistance as patient completes activity. Assistance may be provided throughout the activity or intermittently. 3-Partial/Moderate Assistance-helper does LESS THAN HALF the effort. [place] lifts, holds or supports trunk or limbs, but provides less than half the effort. 2-Substantial/Maximal Assistance-helper does MORE THAN HALF the effort. [place] lifts or holds trunk or limbs and provides more than half the effort. 8-Dkkwvhztb-oxkocq does ALL the effort. Patient does none of the effort to complete the activity. Or, the assistance of 2 or more helpers is required for the patient to complete the activity. If activity was not attempted, code reason: 7-Patient Refused. 9-Not Applicable-not attempted and the patient did not perform the activity before the current illness, exacerbation or injury. 10-Not Attempted due to Environmental Limitations-(lack of equipment, weather restraints, etc.). 88-Not Attempted due to Medical Conditions or Safety Concerns. OT Short Term Goals Short Term Goals Eatin Oral hygiene: 6 Toileting hygiene: 4 OT Prison Goals Prison Goals Eating (QC): 6 Oral Hygiene (QC): 6 Toileting Hygiene (QC): 6 (w/ AD) Shower/Bathe Self (QC): 4 Upper Body Dressing (QC): 5 Lower Body Dressing (QC): 5 On/Off Footwear (QC): 5 1=Demonstrate adherence to instructed precautions during ADL tasks. 2=Patient will verbalize/demonstrate understanding of assistive devices/modifications for ADL. 3=Patient will improve strength/tolerance for activity to enable patient to perform ADL's. OT Education/Plan Problem List/Assessment Assessment: Decreased Activ Tolerance, Decreased Safety Aware, Decreased UE Strength Discharge Recommendations Plan/Recommendations: Continue POC Treatment Plan/Plan of Care Patient would benefit from OT for education, treatment and training to promote independence in ADL's, mobility, safety and/or upper extremity function for ADL's. Plan of Care: ADL Retraining, Cognitive Retraining, Concurrent Therapy, Functional Mobility, Group Exercise/Act as Ind, Orthotic Fitting/Training, UE Funct Exercise/Act, UE Neuromus Re-Ed/Coord Treatment Duration: Jan 05, 2023 Frequency: At least 5 of 7 days/Wk (IRF) Estimated Hrs Per Day: 1.5 hours per day Agreement: Yes Rehab Potential: Fair Time Start Time: 15:45 Stop Time: 17:13 DATE: Dec 05, 2022 Total Time Billed (hr/min): 88 Billed Treatment Time Co-treat ([id number]) 1 visit ADL 4 (60 min) FA 2 (28) Shira Gamino COTA Dec 05, 2022 17:27
--- NOTE | 2022-12-05 17:30 | Physical Therapy Daily Note ---
PT Daily Note-Current Subjective Pt lethargic and difficult to keep awake. Pt reluctantly agrees to limited PT/OT co-treat as long as pt can return to bed. PT/OT co-treat due to skills of two clinicians required to decrease fall risk, increase activity tolerance, increase mobility & safety. PT focused on ambulation, transfers & B LE strengthening while OT focused on functional mobility, B UE placement during mobility, ADLs and B UE strengthening. Pain Section J - Health Conditions 1. Rarely or not at all 2. Occasionally 3. Frequently 4. Almost constantly 8. Unable to answer Pain Effect on Sleep: 2 Pain Interference with Therapy: 4 Pain Interference w/Day-to-Day: 3 Mental Status Patient Orientation: Person, Confused Attachments: Lynch Catheter Transfers SCALE: Activities may be completed with or without assistive devices. 1-Lsqwnsvfzh-kwbecxh completes the activity by him/herself with no assistance from a helper. 5-Set-up or Clean-up Assistance-helper sets up or cleans up; patient completes activity. [place] assists only prior to or following the activity. 4-Supervision or Touching Assistance-helper provides verbal cues and/or touching/steadying and/or contact guard assistance as patient completes activity. Assistance may be provided throughout the activity or intermittently. 3-Partial/Moderate Assistance-helper does LESS THAN HALF the effort. [place] lifts, holds or supports trunk or limbs, but provides less than half the effort. 2-Substantial/Maximal Assistance-helper does MORE THAN HALF the effort. [place] lifts or holds trunk or limbs and provides more than half the effort. 6-Roryhopiu-hfovun does ALL the effort. Patient does none of the effort to complete the activity. Or, the assistance of 2 or more helpers is required for the patient to complete the activity. If activity was not attempted, code reason: 7-Patient Refused. 9-Not Applicable-not attempted and the patient did not perform the activity before the current illness, exacerbation or injury. 10-Not Attempted due to Environmental Limitations-(lack of equipment, weather restraints, etc.). 88-Not Attempted due to Medical Conditions or Safety Concerns. Sit to Lying (QC): 2 Sit to Stand (QC): 3 Weight Bearing Right Lower Extremity: Right Full Weight Bearing Left Lower Extremity: Left Full Weight Bearing Wheelchair Training Does the Pt Use a Wheelchair?: Yes Wheel 50 ft with 2 turns (QC): 3 Type of Wheelchair: Manual Treatments Pt needed encouragement to continue to remain up in w/c after PT departs to work w/[employer]. Pt propels w/c with VC & TC approx. 50'. Pt attempts Seated EX then c/o neck spasms and refuses to continue tx in sitting position, reporting need to return to bed. PT & OT assist w/TF from w/c to EOB then EOB to Supine for sponge bath and dressing change. PT assists w/EOB sitting before laying Supine for bath. Pt repositioned to comfort. All needs met, call light in hand. Assessment Current Status: Poor Progress Pt is easily distracted and needs constant redirection to stay on task. Pain limits participation in tx. Pt is also self limiting at times. PT Beading Sawyer Goals [facility] Goals PT Beading Sawyer Goals Time Frame: Dec 15, 2022 Roll Left & Right (QC): 4 (Pt will be SBA for functional mobility with the FWW to safely d/c home with assistance. ) Sit to Lying (QC): 4 (Pt will be SBA for functional mobility with the FWW to safely d/c home with assistance. ) Lying-Sitting on Side/Bed(QC): 4 (Pt will be SBA for functional mobility with the FWW to safely d/c home with assistance. ) Sit to Stand (QC): 4 (Pt will be SBA for functional mobility with the FWW to safely d/c home with assistance. ) Chair/Ize-kp-Aeloh Xfer(QC): 4 (Pt will be SBA for functional mobility with the FWW to safely d/c home with assistance. ) Toilet Transfer (QC): 4 (Pt will be SBA for functional mobility with the FWW to safely d/c home with assistance. ) Car Transfer (QC): 4 (Pt will be SBA for functional mobility with the FWW to safely d/c home with assistance. ) Does the Patient Walk: Yes Walk 10 feet (QC): 4 (Pt will be SBA for functional mobility with the FWW to safely d/c home with assistance. ) Walk 50ft with 2 Turns (QC): 4 (Pt will be SBA for functional mobility with the FWW to safely d/c home with assistance. ) Walk 150 ft (QC): 4 (Pt will be SBA for functional mobility with the FWW to safely d/c home with assistance. ) Walking 10ft on Uneven Surface: 4 (Pt will be SBA for functional mobility with the FWW to safely d/c home with assistance. ) 1 Step (curb) (QC): 9 4 Steps (QC): 9 12 Steps (QC): 9 Picking up an Object (QC): 4 (Pt will be SBA for functional mobility with the FWW to safely d/c home with assistance. ) Does the Pt use WC or Scooter?: Yes Wheel 50 feet with 2 turns (QC: 6 (Ind with w/c mobility ) Type: Manual Wheel 150 feet: 6 (Ind with w/c mobility ) Type: Manual PT Plan Problem List Problem List: Activity Tolerance, Safety, Balance, Gait, Transfer Treatment/Plan Treatment Plan: Continue Plan of Care Treatment Plan: Bed Mobility, Concurrent Therapy, Education, Functional Activity Darrion, Functional Strength, Group Therapy, Gait, Safety, Therapeutic Exercise, Transfers Treatment Duration: Dec 15, 2022 Frequency: At least 5 of 7 days/Wk (IRF) Estimated Hrs Per Day: 1.5 hours per day Patient and/or Family Agrees t: Yes Safety Risks/Education Patient Education: Gait Training, Transfer Techniques, Reviewed Precautions, Correct Positioning, W/C Management, Safety Issues Teaching Recipient: Patient Teaching Methods: Discussion Response to Teaching: Verbalize Understanding Time Time In: 154 Time Out: 1712 DATE: Dec 05, 2022 Total Billed Treatment Time: 88 Total Billed Treatment 1, [facility] x2 (25m) & FA x4 (63m) JACKELINE SILVERMAN [employer] Dec 05, 2022 17:30
[2022-12-05] MEDS: ENOXAPARIN 40 MG/0.4 ML (LOVENOX) SYR SC SCH (18:31)
[2022-12-05] MEDS: NAPROXEN 250 MG (NAPROSYN) TABLET PO SCH (18:32)
[2022-12-05] MEDS: LIDOCAINE 4% (SALONPAS) PATCH TOP SCH (18:33)
[2022-12-05 20:41] VITALS: BP 121/57
[2022-12-05] MEDS ORDERED: polyethylene glycoL POWDER 17 GM (MIRALAX) PACK PO SCH (21:00)
[2022-12-05] MEDS ORDERED: NON-FORMULARY MEDICATION 1 EA EA (Divalproex Sodium 500 MG) PO SCH (21:00)
[2022-12-05] MEDS ORDERED: DOCUSATE SODIUM 100 MG (COLACE) CAP PO SCH (21:00)
[2022-12-05] MEDS ORDERED: NON-FORMULARY MEDICATION 1 EA EA (Baclofen 20 MG) PO SCH (21:00)
[2022-12-05] MEDS ORDERED: NON-FORMULARY MEDICATION 1 EA EA (Dicyclomine HCl 20 MG) PO SCH (21:00)
[2022-12-05] MEDS ORDERED: NON-FORMULARY MEDICATION 1 EA EA (Naproxen 500 MG) PO SCH (21:00)
[2022-12-05] MEDS: hydrOXYzine (ATARAX) 10 MG TAB PO PRN (21:54)
[2022-12-05] MEDS: DIVALPROEX 250 MG DELAYED RELEASE (DEPAKOTE) TAB PO SCH (22:01)
[2022-12-05] MEDS: LIDOCAINE PATCH REMOVAL TP SCH (23:12)
[2022-12-05] MEDS: GABAPENTIN 100 MG (NEURONTIN) CAP PO SCH (23:14)
[2022-12-05] MEDS: GABAPENTIN 300 MG (NEURONTIN) CAP PO SCH (23:15)
[2022-12-05] MEDS: BACLOFEN 10 MG (LIORESAL) TAB PO SCH (23:17)
[2022-12-05] MEDS: DICYCLOMINE 10 MG (BENTYL) CAP PO SCH (23:23)
[2022-12-05] MEDS: SENNA W/DOCUSATE (SENOKOT S) TABLET PO SCH (23:24)
[2022-12-05] MEDS: DOCUSATE SODIUM 100 MG (COLACE) CAP PO SCH (23:25)
[2022-12-05] MEDS: FAMOTIDINE 20 MG (PEPCID) TABLET PO SCH (23:26)
[2022-12-05] MEDS: MONTELUKAST 10 MG (SINGULAIR) TAB PO SCH (23:27)
[2022-12-05] MEDS: DICLOFENAC 1% GEL 100 GM (VOLTAREN) TUBE TOP SCH (23:30)
[2022-12-06 05:30] LABS: BASOPHILS % (AUTO) 0 % (0-10); EOSINOPHILS % (AUTO) 0 % (0-10); HEMATOCRIT 35 % (35-52); HEMOGLOBIN 11.6 g/dL (11.5-16.0); LYMPHOCYTES # (AUTO) 2.7 10^3/uL (1.0-4.0); LYMPHOCYTES % (AUTO) 26 % (12-44); MEAN CORPUSCULAR HEMOGLOBIN 31 pg (25-34); MEAN CORPUSCULAR HGB CONC 33 g/dL (32-36); MEAN CORPUSCULAR VOLUME 94 fL (80-99); MONOCYTES # (AUTO) 1.2 10^3/uL (0.0-1.0); MONOCYTES % (AUTO) 12 % (0-12); NEUTROPHILS # (AUTO) 6.3 10^3/uL (1.8-7.8); NEUTROPHILS % (AUTO) 61 % (42-75); PLATELET COUNT 307 10^3/uL (130-400); WHITE BLOOD COUNT 10.3 10^3/uL (4.3-11.0)
[2022-12-06 05:42] LABS: ALBUMIN 3.4 GM/DL (3.2-4.5); POTASSIUM 4.2 MMOL/L (3.6-5.0)
[2022-12-06 05:44] LABS: CALCIUM 7.9 MG/DL (8.5-10.1)
[2022-12-06 05:45] LABS: TOTAL PROTEIN 5.9 GM/DL (6.4-8.2)
[2022-12-06 05:47] LABS: BILIRUBIN,TOTAL 0.2 MG/DL (0.1-1.0)
[2022-12-06 05:48] LABS: CREATININE SERUM 1.3 MG/DL (0.60-1.30)
[2022-12-06] MEDS: MULTIVIT W/MINERALS TAB (THERAGRAN M) PO SCH (06:59)
[2022-12-06 07:51] VITALS: BP 137/60
[2022-12-06 08:29] VITALS: BP 137/60
[2022-12-06] MEDS ORDERED: LEVO80CA PO (08:47)
[2022-12-06] MEDS ORDERED: NON-FORMULARY MEDICATION 1 EA EA (Cranberry Conc/Ascorbic Acid (Cranberry Plus Vitamin C S PO SCH (09:00)
[2022-12-06] MEDS ORDERED: NON-FORMULARY MEDICATION 1 EA EA (Triamterene/Hydrochlorothiazid (Triamterene-Hctz 37.5-25 PO SCH (09:00)
[2022-12-06] MEDS ORDERED: D3 PO SCH (09:00)
[2022-12-06] MEDS ORDERED: NON-FORMULARY MEDICATION 1 EA EA (Cholecalciferol (Vitamin D3) (Vitamin D3) 50 MCG) PO SCH (09:00)
[2022-12-06] MEDS ORDERED: LUTEIN PO SCH (09:00)
[2022-12-06] MEDS ORDERED: VIT A C PO SCH (09:00)
[2022-12-06] MEDS ORDERED: VIT A PO SCH (09:00)
[2022-12-06] MEDS ORDERED: [UNRECOGNIZED DRUG - OTHER] PO SCH (09:00)
[2022-12-06] MEDS ORDERED: MINERALS PO SCH (09:00)
[2022-12-06] MEDS ORDERED: NON-FORMULARY MEDICATION 1 EA EA (Calcium Carbonate 500 MG) PO SCH (09:00)
[2022-12-06] MEDS ORDERED: [UNRECOGNIZED DRUG - OTHER] PO SCH (09:00)
[2022-12-06] MEDS ORDERED: NON-FORMULARY MEDICATION 1 EA EA (Bupropion HCl (Bupropion Xl) 300 MG) PO SCH (09:00)
[2022-12-06] MEDS ORDERED: COD LIVER OIL PO SCH (09:00)
[2022-12-06] MEDS ORDERED: NON-FORMULARY MEDICATION 1 EA EA (Levocetirizine Dihydrochloride 5 MG) PO SCH (09:00)
[2022-12-06] MEDS ORDERED: NON-FORMULARY MEDICATION 1 EA EA (L.acidoph & Paracasei,B.lactis (Probiotic) 1 EACH) PO SCH (09:00)
[2022-12-06] MEDS ORDERED: NON-FORMULARY MEDICATION 1 EA EA (Biotin 1,000 MCG) PO SCH (09:00)
[2022-12-06] MEDS ORDERED: B COMPLEX WITH VITAMIN C PO SCH (09:00)
[2022-12-06] MEDS: PANTOPRAZOLE 40 MG (PROTONIX) TAB PO SCH (09:21)
[2022-12-06] MEDS: TRIAMTERENE/HCTZ 75-50 (MAXZIDE,DYAZIDE) TABLET PO SCH (09:21)
[2022-12-06] MEDS: VITAMIN D3 25 MCG (1,000 UNITS) TABLET PO SCH (09:21)
[2022-12-06] MEDS: BACLOFEN 10 MG (LIORESAL) TAB PO SCH ×2 (09:22→23:59)
[2022-12-06] MEDS: FAMOTIDINE 20 MG (PEPCID) TABLET PO SCH ×2 (09:22→22:34)
[2022-12-06] MEDS: DICYCLOMINE 10 MG (BENTYL) CAP PO SCH ×3 (09:23→22:34)
[2022-12-06] MEDS: meTOproloL SUCCINATE 50 MG (TOPROL XL) TAB PO SCH (09:24)
[2022-12-06] MEDS: GABAPENTIN 300 MG (NEURONTIN) CAP PO SCH ×2 (09:24→23:59)
[2022-12-06] MEDS: buPROPion SR 150 MG (WELLBUTRIN SR) TAB PO SCH (09:24)
[2022-12-06] MEDS: LACTOBACILLUS ACIDOPHILUS (PROBIOTIC) CAPSULE PO SCH (09:24)
[2022-12-06] MEDS: FUROSEMIDE 20 MG (LASIX) TAB PO SCH (09:25)
[2022-12-06] MEDS: SENNA W/DOCUSATE (SENOKOT S) TABLET PO SCH (09:25)
[2022-12-06] MEDS: CALCIUM CARBONATE 600 MG (CALCARB) TAB PO SCH (09:25)
[2022-12-06] MEDS: NAPROXEN 250 MG (NAPROSYN) TABLET PO SCH ×2 (09:25→17:22)
[2022-12-06] MEDS: DIVALPROEX 250 MG DELAYED RELEASE (DEPAKOTE) TAB PO SCH ×3 (09:26→23:43)
[2022-12-06] MEDS: LORATADINE (CLARITIN) 10 MG TAB PO SCH (09:26)
[2022-12-06] MEDS: OMEGA 3 (FISH OIL) 1000 MG CAP PO SCH (09:26)
[2022-12-06] MEDS: FLUTICASONE NASAL SPRAY (FLONASE) 16 GM BTL NS SCH (09:28)
[2022-12-06] MEDS: CALCITONIN NASAL 200 INTLU/AC (FORTICAL) 3.7 ML BTL SCH (09:28)
[2022-12-06] MEDS: polyethylene glycoL POWDER 17 GM (MIRALAX) PACK PO SCH (09:29)
[2022-12-06] MEDS: DOCUSATE SODIUM 100 MG (COLACE) CAP PO SCH ×2 (09:29→23:58)
[2022-12-06] MEDS: DICLOFENAC 1% GEL 100 GM (VOLTAREN) TUBE TOP SCH ×4 (09:31→22:50)
[2022-12-06] MEDS: LIDOCAINE 4% (SALONPAS) PATCH TOP SCH (10:41)
[2022-12-06] MEDS: LEVOMILNACIPRAN HYDROCHLORIDE 80 MG PO SCH (10:41)
--- NOTE | 2022-12-06 10:42 | Physical Therapy Daily Note ---
PT Daily Note-Current Subjective pt in room with OT and nursing staff taking morning mds upon arrival. pt willing for therapy. OT/PT co-treat [id number] due to skill of 2 clinicians required which a workplace rehabilitation officer could not preform in order to coordinate UE/LEs, decrease fall risk, and dut to pt's limitations in strength, mobility, transfers and pain. OT focused on UE placement, cues for sequencing and safety, PT focused on LE placement, gross overall movement and transfers/mobility. pt states 6/10 pain in back this day. pt was left in bed with call light and all needs met after treatment this day. Pain Section J - Health Conditions 1. Rarely or not at all 2. Occasionally 3. Frequently 4. Almost constantly 8. Unable to answer Pain Effect on Sleep: 2 Pain Interference with Therapy: 4 Pain Interference w/Day-to-Day: 3 Mental Status Patient Orientation: Person, Place, Situation Transfers SCALE: Activities may be completed with or without assistive devices. 8-Oejrctuwpz-mmpoqmh completes the activity by him/herself with no assistance from a helper. 5-Set-up or Clean-up Assistance-helper sets up or cleans up; patient completes activity. [place] assists only prior to or following the activity. 4-Supervision or Touching Assistance-helper provides verbal cues and/or touching/steadying and/or contact guard assistance as patient completes activity. Assistance may be provided throughout the activity or intermittently. 3-Partial/Moderate Assistance-helper does LESS THAN HALF the effort. [place] lifts, holds or supports trunk or limbs, but provides less than half the effort. 2-Substantial/Maximal Assistance-helper does MORE THAN HALF the effort. [place] lifts or holds trunk or limbs and provides more than half the effort. 2-Qqvtgzlpp-rjcyzo does ALL the effort. Patient does none of the effort to complete the activity. Or, the assistance of 2 or more helpers is required for the patient to complete the activity. If activity was not attempted, code reason: 7-Patient Refused. 9-Not Applicable-not attempted and the patient did not perform the activity before the current illness, exacerbation or injury. 10-Not Attempted due to Environmental Limitations-(lack of equipment, weather restraints, etc.). 88-Not Attempted due to Medical Conditions or Safety Concerns. Weight Bearing Right Lower Extremity: Right Full Weight Bearing Left Lower Extremity: Left Full Weight Bearing Treatments Pt preformed bed mobility with Vc fo 40% for reminder of back precaution and sequencing. Pt preformed stand pivot transfers with 2 person Min A for safety with low mm control 40% VC for sequencing hand placement and AD use X 2 this day. pt was able to preform sit to stand at // bars x 3 with 40% Vc for sequencing, with hand placement. pt lacks recall of training after having just been educated. Assessment Current Status: Good Progress PT Care Home Goals Care Home Goals PT [place] Machine Operator Goals Time Frame: Dec 15, 2022 Roll Left & Right (QC): 4 (Pt will be SBA for functional mobility with the FWW to safely d/c home with assistance. ) Sit to Lying (QC): 4 (Pt will be SBA for functional mobility with the FWW to safely d/c home with assistance. ) Lying-Sitting on Side/Bed(QC): 4 (Pt will be SBA for functional mobility with the FWW to safely d/c home with assistance. ) Sit to Stand (QC): 4 (Pt will be SBA for functional mobility with the FWW to safely d/c home with assistance. ) Chair/Fok-cb-Asaxn Xfer(QC): 4 (Pt will be SBA for functional mobility with the FWW to safely d/c home with assistance. ) Toilet Transfer (QC): 4 (Pt will be SBA for functional mobility with the FWW to safely d/c home with assistance. ) Car Transfer (QC): 4 (Pt will be SBA for functional mobility with the FWW to safely d/c home with assistance. ) Does the Patient Walk: Yes Walk 10 feet (QC): 4 (Pt will be SBA for functional mobility with the FWW to safely d/c home with assistance. ) Walk 50ft with 2 Turns (QC): 4 (Pt will be SBA for functional mobility with the FWW to safely d/c home with assistance. ) Walk 150 ft (QC): 4 (Pt will be SBA for functional mobility with the FWW to safely d/c home with assistance. ) Walking 10ft on Uneven Surface: 4 (Pt will be SBA for functional mobility with the FWW to safely d/c home with assistance. ) 1 Step (curb) (QC): 9 4 Steps (QC): 9 12 Steps (QC): 9 Picking up an Object (QC): 4 (Pt will be SBA for functional mobility with the FWW to safely d/c home with assistance. ) Does the Pt use WC or Scooter?: Yes Wheel 50 feet with 2 turns (QC: 6 (Ind with w/c mobility ) Type: Manual Wheel 150 feet: 6 (Ind with w/c mobility ) Type: Manual PT Plan Treatment/Plan Treatment Plan: Continue Plan of Care Treatment Plan: Bed Mobility, Concurrent Therapy, Education, Functional Activity Darrion, Functional Strength, Group Therapy, Gait, Safety, Therapeutic Exercise, Transfers Treatment Duration: Dec 15, 2022 Frequency: At least 5 of 7 days/Wk (IRF) Estimated Hrs Per Day: 1.5 hours per day Patient and/or Family Agrees t: Yes Time Time In: 0930 Time Out: 1030 DATE: Dec 06, 2022 Total Billed Treatment Time: 60 Total Billed Treatment 1 FA x 4 CO-treat with OT [id number] for 30 mins [id number] [employer]KE [employer]PL[employer] DIN[employer] Dec 06, 2022 10:42
--- NOTE | 2022-12-06 11:00 | PM&R Progress Note ---
Subjective HPI/CC On Admission Date Seen by Provider: Dec 06, 2022 Time Seen by Provider: 11:15 Subjective/Events-last exam 12/06/2022: Patient doing about the same Was able to work with therapy but in between time she is very confused Pain is somewhat controlled Patient has such severe chronic pain and fibromyalgia and difficulty coping with that pain she will need slow recovery time Review of Systems General: Fatigue Musculoskeletal: back pain Objective Exam Vital Signs Vital Signs Date Time Temp Pulse Resp B/P (MAP) Pulse Ox O2 Delivery O2 Flow Rate FiO2 12/06/22 19:36 36.0 74 16 123/60 (81) 96 Nasal Cannula 2.00 Capillary Refill : General Appearance: No Apparent Distress, WD/WN, Chronically ill, Thin, Other (Frail and pale) HEENT: PERRL/EOMI, Normal ENT Inspection, Pharynx Normal Neck: Full Range of Motion, Normal Inspection, Non Tender, Supple, Carotid Bruit Respiratory: Chest Non Tender, Lungs Clear, Normal Breath Sounds, No Accessory Muscle Use, No Respiratory Distress Cardiovascular: Regular Rate, Rhythm, No Edema, No Gallop, No JVD, No Murmur, Normal Peripheral Pulses Gastrointestinal: Normal Bowel Sounds, No Organomegaly, No Pulsatile Mass, Non Tender, Soft Back: CVA Tenderness (L), CVA Tenderness (R), Decreased Range of Motion, Muscle Spasm, Vertebral Tenderness Extremity: Normal Capillary Refill, Normal Inspection, Normal Range of Motion, Non Tender, No Calf Tenderness, No Pedal Edema Neurologic/Psychiatric: Alert, Oriented x3, Normal Mood/Affect, concrete curer II-XII Norm as Tested, Abnormal Gait, Depressed Affect, Motor Weakness ( generalized especially lower extremities) Skin: Normal Color, Warm/Dry Lymphatic: No Adenopathy Results/Procedures Lab Laboratory Tests 12/06/22 05:00 Patient resulted labs reviewed. FIM Transfers Therapy Code Descriptions/Definitions Functional [place] Measure: 0=Not Assessed/NA 4=Minimal Assistance 1=Total Assistance 5=Supervision or Setup 2=Maximal Assistance 6=Modified [place] 3=Moderate Assistance 7=Complete IndependenceSCALE: Activities may be completed with or without assistive devices. 7-Hlbqfrdnmk-rwrhmif completes the activity by him/herself with no assistance from a helper. 5-Set-up or Clean-up Assistance-helper sets up or cleans up; patient completes activity. [place] assists only prior to or following the activity. 4-Supervision or Touching Assistance-helper provides verbal cues and/or touching/steadying and/or contact guard assistance as patient completes activity. Assistance may be provided throughout the activity or intermittently. 3-Partial/Moderate Assistance-helper does LESS THAN HALF the effort. [place] lifts, holds or supports trunk or limbs, but provides less than half the effort. 2-Substantial/Maximal Assistance-helper does MORE THAN HALF the effort. [place] lifts or holds trunk or limbs and provides more than half the effort. 0-Qwtbeslir-acnrpd does ALL the effort. Patient does none of the effort to complete the activity. Or, the assistance of 2 or more helpers is required for the patient to complete the activity. If activity was not attempted, code reason: 7-Patient Refused. 9-Not Applicable-not attempted and the patient did not perform the activity before the current illness, exacerbation or injury. 10-Not Attempted due to Environmental Limitations-(lack of equipment, weather restraints, etc.). 88-Not Attempted due to Medical Conditions or Safety Concerns. Roll Left to Right (QC): 3 (Mod A) Sit to Lying (QC): 2 Sit to Stand (QC): 3 Chair/Lss-nc-Uaojy Xfer(QC): 3 (Min A) Car Transfer (QC): 88 Gait Training Does the Patient Walk?: Yes Walk 10 feet (QC): 3 (Min A) Walk 50 ft with 2 Turns(QC): 88 Walk 150 ft (QC): 88 Walking 10ft/uneven surface-QC: 88 Gait Assistive Device: FWW Wheelchair Training Does the Pt Use a Wheelchair?: Yes Wheel 50 ft with 2 turns (QC): 3 Wheel 150 ft (QC): 88 Type of Wheelchair: Manual Stair Training 1 Step (curb) (QC): 9 4 Steps (QC): 9 12 Steps (QC): 9 Balance Picking up an Object (QC): 3 (Min A) Assessment/Plan Assessment and Plan Assess & Plan/Chief Complaint Assessment: Compression fractures T11-L2 Fall Indwelling catheter Fibromyalgia Bipolar disorder UTIs Acute encephalopathy due to medications Plan: Supportive care Pain control Lynch catheter to remain for 1 more day Home meds 12/06/2022: Updated sister at the bedside Monitor confusion (1) Compression fracture of L2 Status: Acute (2) Lumbar radiculopathy Status: Acute (3) Debility Status: Acute GABRIEL VIRGEN DO Dec 06, 2022 11:00
--- NOTE | 2022-12-06 11:01 | Individualized Plan of Care ---
Individualized Plan of Care Rehab Nursing IPOC Order Admission Date Dec 05, 2022 at 15:20 Current Orders Orders Admission Arrival Bed Request (12/05/22 15:20) Admission Order(Inpt,Obs,Sdc) (12/05/22 15:56) Vital Signs: Per Unit Policy ( 08,16,00 (12/05/22 15:56) Ranjan Newman 09,21 (12/05/22 15:56) Sequential Compression Device (12/05/22 15:56) Mate First-Inpt Rehab Con (12/05/22 15:56) Rehab Nursing Orders-Ipoc (12/05/22 15:56) Physical Therapy Rehab Orders (12/05/22 15:56) Occupational Therapy Rehab Ord (12/05/22 15:56) Speech Therapy Rehab Orders (12/05/22 15:56) Cbc With Automated Diff (12/06/22 06:00) Comprehensive Metabolic Panel (12/06/22 06:00) Precautions (Aru) (12/05/22 15:56) Weekly Weight WEEK (12/05/22 15:56) Rehab-Intensity Of Therapy (12/05/22 15:56) Initiate Admission Nursing Pro .admission (12/05/22 15:56) Alprazolam Tablet (Xanax Tablet) (12/05/22 16:00) Calcium Carbonate Chew Tablet (Antacid C (12/05/22 16:00) Diphenhydramine Tablet (Benadryl Tablet) (12/05/22 16:00) Docusate Sodium Capsule (Colace Capsule) (12/05/22 21:00) Docusate Sodium Capsule (Colace Capsule) (12/05/22 16:00) Bisacodyl Suppository (Dulcolax Supposit (12/05/22 16:00) Lactulose Oral Solution (Enulose Oral So (12/05/22 16:00) Na Phos/Na Biphos Enema (Fleet Enema Javon (12/05/22 16:00) Guaifenesin/Codeine Syrup (Robitussin Ac (12/05/22 16:00) Loperamide Tablet (Imodium Tablet) (12/05/22 16:00) Enoxaparin Injection (Lovenox Injection) (12/05/22 18:00) Melatonin Tablet (Melatonin Tablet) (12/05/22 16:00) Polyethylene Glycol Powder Pkt (Miralax (12/05/22 21:00) Ondansetron Oral Dissolve Tab (Zofran (12/05/22 16:00) Senna S Tablet (Senokot S Tablet) (12/05/22 21:00) Acetaminophen Tablet/Caplet (Tylenol T (12/05/22 16:00) Initiate Admission Nursing Pro .admission (12/05/22 15:56) Calcitonin Nasal [place] (Miacalcin Nasal (12/06/22 09:00) Docusate Sodium Capsule (Colace Capsule) (12/05/22 21:00) Famotidine Tablet (Pepcid Tablet) (12/05/22 21:00) Fluticasone Nasal [place] (Flonase Nasal S (12/06/22 09:00) Furosemide Tablet (Lasix Tablet) (12/06/22 09:00) Gabapentin Capsule/Tablet (Neurontin Cap (12/05/22 21:00) Gabapentin Capsule/Tablet (Neurontin Cap (12/05/22 21:00) Hydroxyzine Oral (Atarax Tablet) (12/05/22 16:00) Metoprolol Succinate (Xl) Tab (Toprol Xl (12/06/22 09:00) Montelukast Tablet (Singulair Tablet) (12/05/22 21:00) Therapeutic Multivitamin Tab (Vitamins, (12/06/22 07:00) Pantoprazole Tablet (Protonix Tablet) (12/06/22 09:00) Polyethylene Glycol Powder Pkt (Miralax (12/06/22 09:00) (Nf) Azelastine Hcl (12/05/22 16:00) (Nf) B Complex With Vitamin C (B-Complex (12/06/22 09:00) (Nf) Baclofen (12/05/22 21:00) (Nf) Biotin (12/06/22 09:00) (Nf) Bupropion Hcl (Bupropion Xl) (12/06/22 09:00) (Nf) Calcium Carbonate (12/06/22 09:00) (Nf) Cholecalciferol (Vitamin D3) (Vitam (12/06/22 09:00) (Nf) Cranberry Conc/Ascorbic Acid (Cranb (12/06/22 09:00) (Nf) Dicyclomine Hcl (12/05/22 21:00) (Nf) Divalproex Sodium (12/05/22 21:00) (Nf) L.Acidoph & Paracasei,B.Lactis (Pro (12/06/22 09:00) (Nf) Levocetirizine Dihydrochloride (12/06/22 09:00) (Nf) Levomilnacipran Hydrochloride (Fetz (12/06/22 09:00) (Nf) Naproxen (12/05/22 21:00) (Nf) Triamterene/Hydrochlorothiazid (Tri (12/06/22 09:00) (Nf) Vit A & D3 In Cod Liver Oil (Gnp No (12/06/22 09:00) (Nf) Vit A,C & E/Lutein/Minerals (Health (12/06/22 09:00) Cholecalciferol Capsule/Tablet (Vitamin (12/06/22 09:00) Lactobacillus Acidophilus Cap (Acidophil (12/06/22 09:00) Loratadine Tablet (Claritin Tablet) (12/06/22 09:00) [place] 3 Capsule (Fish Oil Capsule) (12/06/22 09:00) Fentanyl Patch (Duragesic Patch) (12/08/22 09:00) Patch Removal (Patch Removal) (12/08/22 08:59) Baclofen Tablet (Lioresal Tablet) (12/05/22 21:00) Calcium Carbonate Tablet (Calcarb 600 Ta (12/06/22 08:00) Dicyclomine Capsule (Bentyl Capsule) (12/05/22 21:00) Divalproex Delay Release Tab (Depakote T (12/05/22 21:00) Bupropion Sr 12 Hr Tablet (Wellbutrin Sr (12/06/22 09:00) Triamterene/Hctz 75-50 Tablet (Maxzide 7 (12/06/22 09:00) Naproxen Tablet (Naprosyn Tablet) (12/05/22 18:00) Estradiol Vaginal Cream (Estrace Vaginal (12/06/22 21:00) Diclofenac 1% Gel (Voltaren 1% Gel) (12/05/22 21:00) Lidocaine 4% Patch (Salonpas 4% Patch) (12/05/22 17:30) Patch Removal (Patch Removal) (12/05/22 21:00) Isolation Central Supply Req (12/05/22 18:00) General/Regular (12/05/22 Dinner) Patient Visit (12/05/22 ) Pt Eval High Complexity (12/05/22 ) Patient Visit (12/05/22 ) Wheelchair Mgmt/Propulsn 15min (12/05/22 ) Functional Activities, Ea 15 (12/05/22 ) (Nf) Cranberry Conc/Ascorbic Acid (Cranb (12/07/22 08:00) (Nf) Biotin (12/07/22 09:00) Enlive Variety (12/06/22 12:26) Patient Visit (12/06/22 ) Functional Activities, Ea 15 (12/06/22 ) Patient Visit (12/06/22 ) Functional Activities, Ea 15 (12/06/22 ) Rehab Nursing Orders: Ongoing Assess. of Cognitive Status, Ongoing Assess. of Function Status, Bladder Management, Bladder Scan, Bladder Training, Bowel Management, Bowel Training, Disease Management & Educaiton, DVT Prophylaxis, Fall Prevention, Fluid/Electrolyte/Nutrition Mgmt, Infection Prevention, Medication Management & Education, Management of Risks & Complications, Management of Skin Intergrity, Nutrition Management, Pain Management, Patient/Family Support, Safety Management, Weight Bearing Precaution Intensity of Therapy to be met Patient to be seen: Min.3h per day/5 of 7d PT IPOC Problem List: Activity Tolerance, Safety, Balance, Gait, Transfer Treatment Plan: Continue Plan of Care Bed Mobility, Concurrent Therapy, Education, Functional Activity [place], Functional Strength, Group Therapy, Gait, Safety, Therapeutic Exercise, Transfers Treatment Duration: Dec 15, 2022 Frequency: At least 5 of 7 days/Wk (IRF) Estimated Hrs Per Day: 1.5 hours per day OT IPOC Problems: Decreased Activ Tolerance, Decreased Safety Aware, Decreased UE Strength OT Treatment, Training and Edu: Yes Plan of Care: ADL Retraining, Cognitive Retraining, Concurrent Therapy, Functional Mobility, Group Exercise/Act as Ind, Orthotic Fitting/Training, UE Funct Exercise/Act, UE Neuromus Re-Ed/Coord Treatment Duration: Jan 05, 2023 Frequency: At least 5 of 7 days/Wk (IRF) Estimated Hrs Per Day: 1.[address] [facility] Speech Therapy Treatment Plan: Continue Plan of Care Treatment Duration: Dec 05, 2022 Frequency: Modified Program (IRF) Estimated Hrs Per Day: Other Mate First/Case Mgmt Mate First/Case Managemen: Discharge Planning Dietitian/Army Ranger Dietitian/Army Ranger to monitor nutritional status and make changes and/or recommendations as needed and work with speech pathology on dietary upgrades as the occur. Physician IPOC Medical Issues being managed closely and that require the 24 hour availability of a physician: Recent multiple compression fractures of the spine will require delicate balance between strong pain medication and encephalopathy management with increased confusion due to medications. History of chronic pain and fibromyalgia will make it more challenging. Medical Issues: Bowel/Bladder Function, DVT Prophylaxis, Falls Precautions, Fluid/Electrolyte/Nutrition Balance, Infection Protection, Pain Management, Weight Bearing Precautions Brief Synthesis of Preadmission Screen, Post-Admission Evaluation, and Therapy Evaluations: PT and OT will focus on regaining function with slow recovery due to encephalopathy and severe weakness from lumbar stenosis which is a chronic issue managed with pain specialist up in [place] which will translate to very slow recovery Medical Prognosis: Fair Anticipated Length of Stay: 10 days GABRIEL VIRGEN DO Dec 06, 2022 11:01
--- NOTE | 2022-12-06 13:23 | Occupational Ther Daily Note ---
OT Current Status-Daily Note Subjective Pt sleeping in bed, difficult to wake. Nasal cannula placed though O2 not on. HERNANDEZ/MENSWEAR SALESPERSON observed pt in apnea multiple times for ~15 sec before breath taken. O2 sats dropped to 85% without O2 on during this time then when pt took breath increased to 95%, with O2 at 2L sat levels dropped to 87% and increased to 95%. Co-treat with PT ([id number]), skills of 2 clinicians required due to pt's lethargy and decreased safety with all mobility. PT focusing on bed mobility and sitting balance while OT focusing on functional mobility and B UE hand placement during mobility. Mental Status/Objective Patient Orientation: Person, Unable to Assess Attachments: IV, Oxygen ADL-Treatment Therapy Code Descriptions/Definitions Functional [place] Measure: 0=Not Assessed/NA 4=Minimal Assistance 1=Total Assistance 5=Supervision or Setup 2=Maximal Assistance 6=Modified [place] 3=Moderate Assistance 7=Complete IndependenceSCALE: Activities may be completed with or without assistive devices. 6-Fcccakfjob-zitcxjs completes the activity by him/herself with no assistance from a helper. 5-Set-up or Clean-up Assistance-helper sets up or cleans up; patient completes activity. [place] assists only prior to or following the activity. 4-Supervision or Touching Assistance-helper provides verbal cues and/or touching/steadying and/or contact guard assistance as patient completes activity. Assistance may be provided throughout the activity or intermittently. 3-Partial/Moderate Assistance-helper does LESS THAN HALF the effort. [place] lifts, holds or supports trunk or limbs, but provides less than half the effort. 2-Substantial/Maximal Assistance-helper does MORE THAN HALF the effort. [place] lifts or holds trunk or limbs and provides more than half the effort. 6-Ilzolnlaw-nwnfvr does ALL the effort. Patient does none of the effort to complete the activity. Or, the assistance of 2 or more helpers is required for the patient to complete the activity. If activity was not attempted, code reason: 7-Patient Refused. 9-Not Applicable-not attempted and the patient did not perform the activity before the current illness, exacerbation or injury. 10-Not Attempted due to Environmental Limitations-(lack of equipment, weather restraints, etc.). 88-Not Attempted due to Medical Conditions or Safety Concerns. Other Treatment Attempting to wake pt to eat lunch. Max A x2 for all bed mobility and sitting EOB. Pt very lethargic and therapists are unable to fully wake pt. Pt did open eyes and talk to therapists though would fall back asleep. After session, pt lying in bed with call light/phone in reach. All needs met in room. Safety measures in place. OT Short Term Goals Short Term Goals Time Frame: Dec 06, 2022 Eatin Oral hygiene: 6 Toileting hygiene: 4 OT Firmware Manager Goals Firmware Manager Goals Acute change in mental status: 0 Inattention: 2 Disorganized thinkin Altered level of consciousness: 0 Eating (QC): 6 Oral Hygiene (QC): 6 Toileting Hygiene (QC): 6 (w/ AD) Shower/Bathe Self (QC): 4 Upper Body Dressing (QC): 5 Lower Body Dressing (QC): 5 On/Off Footwear (QC): 5 1=Demonstrate adherence to instructed precautions during ADL tasks. 2=Patient will verbalize/demonstrate understanding of assistive devices/modifications for ADL. 3=Patient will improve strength/tolerance for activity to enable patient to perform ADL's. OT Education/Plan Problem List/Assessment Assessment: Decreased Activ Tolerance, Decreased Safety Aware, Impaired Self- Care Skills Discharge Recommendations Plan/Recommendations: Continue POC Treatment Plan/Plan of Care Patient would benefit from OT for education, treatment and training to promote independence in ADL's, mobility, safety and/or upper extremity function for ADL's. Plan of Care: ADL Retraining, Cognitive Retraining, Concurrent Therapy, Functional Mobility, Group Exercise/Act as Ind, Orthotic Fitting/Training, UE Funct Exercise/Act, UE Neuromus Re-Ed/Coord Treatment Duration: Jan 05, 2023 Frequency: At least 5 of 7 days/Wk (IRF) Estimated Hrs Per Day: 1.5 hours per day Agreement: Yes Rehab Potential: Fair Time Start Time: 13:00 Stop Time: 13:30 DATE: Dec 06, 2022 Total Time Billed (hr/min): 30 Billed Treatment Time 1 visit-FA 2 (30 min) co-treat with PT 30 min MICHELLE BLACKWOOD Dec 06, 2022 13:23
--- NOTE | 2022-12-06 13:26 | Occupational Ther Daily Note ---
OT Current Status-Daily Note Subjective Pt was sitting up in bed attempting to eat, upon arrival, very lethargic, falling asleep easily, cognition and behaviors. ADL-Treatment OT/PT co-treat [id number] due to skill of 2 clinicians required which a restorative rehab aide could not preform in order to coordinate UE/LEs, decrease fall risk, and dut to pt's limitations in strength, mobility, transfers and pain. OT focused on UE placement, cues for sequencing and safety, PT focused on LE placement, gross overall movement and transfers/mobility. Pt very shaking today, and dropping fork and spilling coffee when trying to eat independently. Pt max assist for eating on this day. Increased time due to having difficulty eating and manipulating silverware. Nursing came in room, giving medication. Pt worked on manipulating pills and taking them. Pt agreed to get dressed and with assistance from BODY JOINER, therapist helped patient sit EOB and becky brace with max assistance. Therapist donned socks. Pt stood with mod A with FWW. Pt pulled up pants while standing, pivot transferred to wheelchair by bedside. Pt was left with BODY JOINER in room. Therapy Code Descriptions/Definitions Functional [place] Measure: 0=Not Assessed/NA 4=Minimal Assistance 1=Total Assistance 5=Supervision or Setup 2=Maximal Assistance 6=Modified [place] 3=Moderate Assistance 7=Complete IndependenceSCALE: Activities may be completed with or without assistive devices. 3-Dmshxezoxl-hiyqysv completes the activity by him/herself with no assistance from a helper. 5-Set-up or Clean-up Assistance-helper sets up or cleans up; patient completes activity. [place] assists only prior to or following the activity. 4-Supervision or Touching Assistance-helper provides verbal cues and/or touching/steadying and/or contact guard assistance as patient completes activity. Assistance may be provided throughout the activity or intermittently. 3-Partial/Moderate Assistance-helper does LESS THAN HALF the effort. [place] lifts, holds or supports trunk or limbs, but provides less than half the effort. 2-Substantial/Maximal Assistance-helper does MORE THAN HALF the effort. [place] lifts or holds trunk or limbs and provides more than half the effort. 8-Lthmkxflm-bcjztz does ALL the effort. Patient does none of the effort to complete the activity. Or, the assistance of 2 or more helpers is required for the patient to complete the activity. If activity was not attempted, code reason: 7-Patient Refused. 9-Not Applicable-not attempted and the patient did not perform the activity before the current illness, exacerbation or injury. 10-Not Attempted due to Environmental Limitations-(lack of equipment, weather restraints, etc.). 88-Not Attempted due to Medical Conditions or Safety Concerns. Upper Body Dressing (QC): 5 Lower Body Dressing (QC): 3 On/Off Footwear: 1 Education OT Patient Education: Correct positioning, Energy conservation, Progress toward Goal/Update tx plan, Purpose of tx/functional activities Teaching Recipient: Patient Teaching Methods: Demonstration OT Short Term Goals Short Term Goals Time Frame: Dec 06, 2022 Eatin Oral hygiene: 6 Toileting hygiene: 4 OT Residential Goals Equine Science Instructor Goals Acute change in mental status: 0 Inattention: 2 Disorganized thinkin Altered level of consciousness: 0 Eating (QC): 6 Oral Hygiene (QC): 6 Toileting Hygiene (QC): 6 (w/ AD) Shower/Bathe Self (QC): 4 Upper Body Dressing (QC): 5 Lower Body Dressing (QC): 5 On/Off Footwear (QC): 5 1=Demonstrate adherence to instructed precautions during ADL tasks. 2=Patient will verbalize/demonstrate understanding of assistive devices/modifications for ADL. 3=Patient will improve strength/tolerance for activity to enable patient to perform ADL's. OT Education/Plan Discharge Recommendations Plan/Recommendations: Continue POC Treatment Plan/Plan of Care Patient would benefit from OT for education, treatment and training to promote independence in ADL's, mobility, safety and/or upper extremity function for ADL 's. Plan of Care: ADL Retraining, Cognitive Retraining, Concurrent Therapy, Functional Mobility, Group Exercise/Act as Ind, Orthotic Fitting/Training, UE Funct Exercise/Act, UE Neuromus Re-Ed/Coord Treatment Duration: Jan 05, 2023 Frequency: At least 5 of 7 days/Wk (IRF) Estimated Hrs Per Day: 1.5 hours per day Agreement: Yes Rehab Potential: Fair Time Start Time: 09:00 Stop Time: 10:00 DATE: Dec 06, 2022 Total Time Billed (hr/min): 60 Billed Treatment Time 1 visit ADL 4 (60) Individual time 30 mins Co-treat 30 mins ([id number]) Shira Gamino COTA Dec 06, 2022 13:26
--- NOTE | 2022-12-06 13:45 | Physical Therapy Daily Note ---
PT Daily Note-Current Subjective Pt sleeping in bed, difficult to wake. Nasal cannula placed though O2 not on. HERNANDEZ/HOT BLAST WORKER observed pt in apnea multiple times for ~15 sec before breath taken. O2 sats dropped to 85% without O2 on during this time then when pt took breath increased to 95%, with O2 at 2L sat levels dropped to 87% and increased to 95%. Co-treat with PT ([id number]), skills of 2 clinicians required due to pt's lethargy and decreased safety with all mobility. PT focusing on bed mobility and sitting balance while OT focusing on functional mobility and B UE hand placement during mobility. Pain Section J - Health Conditions 1. Rarely or not at all 2. Occasionally 3. Frequently 4. Almost constantly 8. Unable to answer Pain Effect on Sleep: 2 Pain Interference with Therapy: 4 Pain Interference w/Day-to-Day: 3 Transfers SCALE: Activities may be completed with or without assistive devices. 1-Hncplzamzl-wwuiacj completes the activity by him/herself with no assistance from a helper. 5-Set-up or Clean-up Assistance-helper sets up or cleans up; patient completes activity. [place] assists only prior to or following the activity. 4-Supervision or Touching Assistance-helper provides verbal cues and/or touching/steadying and/or contact guard assistance as patient completes activity. Assistance may be provided throughout the activity or intermittently. 3-Partial/Moderate Assistance-helper does LESS THAN HALF the effort. [place] lifts, holds or supports trunk or limbs, but provides less than half the effort. 2-Substantial/Maximal Assistance-helper does MORE THAN HALF the effort. [place] lifts or holds trunk or limbs and provides more than half the effort. 2-Arbzluokz-gkwlah does ALL the effort. Patient does none of the effort to c omplete the activity. Or, the assistance of 2 or more helpers is required for the patient to complete the activity. If activity was not attempted, code reason: 7-Patient Refused. 9-Not Applicable-not attempted and the patient did not perform the activity before the current illness, exacerbation or injury. 10-Not Attempted due to Environmental Limitations-(lack of equipment, weather restraints, etc.). 88-Not Attempted due to Medical Conditions or Safety Concerns. Weight Bearing Right Lower Extremity: Right Full Weight Bearing Left Lower Extremity: Left Full Weight Bearing Treatments Pt was assessed for breathing as previously stated. pt requires PT/OT for MAX A for bed mobility, and sit to stand. Max VC for sequencing and safety. Assessment Current Status: Poor Progress PT Project Crew Worker Goals Group Home Goals PT Project Crew Worker Goals Time Frame: Dec 15, 2022 Roll Left & Right (QC): 4 (Pt will be SBA for functional mobility with the FWW to safely d/c home with assistance. ) Sit to Lying (QC): 4 (Pt will be SBA for functional mobility with the FWW to safely d/c home with assistance. ) Lying-Sitting on Side/Bed(QC): 4 (Pt will be SBA for functional mobility with the FWW to safely d/c home with assistance. ) Sit to Stand (QC): 4 (Pt will be SBA for functional mobility with the FWW to safely d/c home with assistance. ) Chair/Bxi-ze-Qpipd Xfer(QC): 4 (Pt will be SBA for functional mobility with the FWW to safely d/c home with assistance. ) Toilet Transfer (QC): 4 (Pt will be SBA for functional mobility with the FWW to safely d/c home with assistance. ) Car Transfer (QC): 4 (Pt will be SBA for functional mobility with the FWW to safely d/c home with assistance. ) Does the Patient Walk: Yes Walk 10 feet (QC): 4 (Pt will be SBA for functional mobility with the FWW to safely d/c home with assistance. ) Walk 50ft with 2 Turns (QC): 4 (Pt will be SBA for functional mobility with the FWW to safely d/c home with assistance. ) Walk 150 ft (QC): 4 (Pt will be SBA for functional mobility with the FWW to safely d/c home with assistance. ) Walking 10ft on Uneven Surface: 4 (Pt will be SBA for functional mobility with the FWW to safely d/c home with assistance. ) 1 Step (curb) (QC): 9 4 Steps (QC): 9 12 Steps (QC): 9 Picking up an Object (QC): 4 (Pt will be SBA for functional mobility with the FWW to safely d/c home with assistance. ) Does the Pt use WC or Scooter?: Yes Wheel 50 feet with 2 turns (QC: 6 (Ind with w/c mobility ) Type: Manual Wheel 150 feet: 6 (Ind with w/c mobility ) Type: Manual PT Plan Treatment/Plan Treatment Plan: Continue Plan of Care Treatment Plan: Bed Mobility, Concurrent Therapy, Education, Functional Activity Darrion, Functional Strength, Group Therapy, Gait, Safety, Therapeutic Exercise, Transfers Treatment Duration: Dec 15, 2022 Frequency: At least 5 of 7 days/Wk (IRF) Estimated Hrs Per Day: 1.5 hours per day Patient and/or Family Agrees t: Yes Time Time In: 1300 Time Out: 1330 DATE: Dec 06, 2022 Total Billed Treatment Time: 30 Total Billed Treatment 1 FA x 2 Co treat with OT for 30 mins from [address] to [address] HOT BLAST WORKER Dec 06, 2022 13:45
[2022-12-06] MEDS: ENOXAPARIN 40 MG/0.4 ML (LOVENOX) SYR SC SCH (17:22)
[2022-12-06 19:36] VITALS: BP 123/60
[2022-12-06] MEDS: ONDANSETRON 4 MG (ZOFRAN) ORAL DISSOLVE TAB PO PRN (21:13)
[2022-12-06] MEDS: hydrOXYzine (ATARAX) 10 MG TAB PO PRN (22:44)
[2022-12-06] MEDS: LIDOCAINE PATCH REMOVAL TP SCH (22:50)
[2022-12-06] MEDS: GABAPENTIN 100 MG (NEURONTIN) CAP PO SCH (23:59)
[2022-12-07] MEDS: buPROPion SR 150 MG (WELLBUTRIN SR) TAB PO SCH ×3 (00:01→21:59)
[2022-12-07] MEDS: ESTRADIOL VAGINAL CREAM 42.5 GM (ESTRACE) VG SCH (00:02)
--- NOTE | 2022-12-07 05:42 | PM&R Progress Note ---
Subjective HPI/CC On Admission Date Seen by Provider: Dec 07, 2022 Time Seen by Provider: 12:00 Subjective/Events-last exam 12/07/2022: Patient doing well Less sedation but will pull off fentanyl patch Able to participate in therapy Checked meds and labs 12/06/2022: Patient doing about the same Was able to work with therapy but in between time she is very confused Pain is somewhat controlled Patient has such severe chronic pain and fibromyalgia and difficulty coping with that pain she will need slow recovery time Review of Systems General: Fatigue, Malaise Musculoskeletal: back pain Neurological: Confusion Objective Exam Vital Signs Vital Signs Date Time Temp Pulse Resp B/P (MAP) Pulse Ox O2 Delivery O2 Flow Rate FiO2 12/07/22 21:50 92 Room Air 12/07/22 19:33 35.8 80 18 122/59 (80) 12/07/22 09:00 2.00 Capillary Refill : General Appearance: No Apparent Distress, WD/WN, Chronically ill, Thin, Other (Frail and pale) HEENT: PERRL/EOMI, Normal ENT Inspection, Pharynx Normal Neck: Full Range of Motion, Normal Inspection, Non Tender, Supple, Carotid Bruit Respiratory: Chest Non Tender, Lungs Clear, Normal Breath Sounds, No Accessory Muscle Use, No Respiratory Distress Cardiovascular: Regular Rate, Rhythm, No Edema, No Gallop, No JVD, No Murmur, Normal Peripheral Pulses Gastrointestinal: Normal Bowel Sounds, No Organomegaly, No Pulsatile Mass, Non Tender, Soft Back: CVA Tenderness (L), CVA Tenderness (R), Decreased Range of Motion, Muscle Spasm, Vertebral Tenderness Extremity: Normal Capillary Refill, Normal Inspection, Normal Range of Motion, Non Tender, No Calf Tenderness, No Pedal Edema Neurologic/Psychiatric: Alert, Oriented x3, Normal Mood/Affect, emergency communications dispatcher 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 FIM Transfers Therapy Code Descriptions/Definitions Functional [place] Measure: 0=Not Assessed/NA 4=Minimal Assistance 1=Total Assistance 5=Supervision or Setup 2=Maximal Assistance 6=Modified [place] 3=Moderate Assistance 7=Complete IndependenceSCALE: Activities may be completed with or without assistive devices. 9-Tlajulvnhd-gyrbjuh completes the activity by him/herself with no assistance from a helper. 5-Set-up or Clean-up Assistance-helper sets up or cleans up; patient completes activity. [place] assists only prior to or following the activity. 4-Supervision or Touching Assistance-helper provides verbal cues and/or touchi ng/steadying and/or contact guard assistance as patient completes activity. Assistance may be provided throughout the activity or intermittently. 3-Partial/Moderate Assistance-helper does LESS THAN HALF the effort. [place] lifts, holds or supports trunk or limbs, but provides less than half the effort. 2-Substantial/Maximal Assistance-helper does MORE THAN HALF the effort. [place] lifts or holds trunk or limbs and provides more than half the effort. 1-Tfmszvbbe-rzbgji does ALL the effort. Patient does none of the effort to complete the activity. Or, the assistance of 2 or more helpers is required for the patient to complete the activity. If activity was not attempted, code reason: 7-Patient Refused. 9-Not Applicable-not attempted and the patient did not perform the activity before the current illness, exacerbation or injury. 10-Not Attempted due to Environmental Limitations-(lack of equipment, weather restraints, etc.). 88-Not Attempted due to Medical Conditions or Safety Concerns. Roll Left to Right (QC): 3 (Mod A) Sit to Lying (QC): 2 Sit to Stand (QC): 3 Chair/Klk-bc-Nuhxx Xfer(QC): 3 (Min A) Car Transfer (QC): 88 Gait Training Does the Patient Walk?: Yes Walk 10 feet (QC): 3 (Min A) Walk 50 ft with 2 Turns(QC): 88 Walk 150 ft (QC): 88 Walking 10ft/uneven surface-QC: 88 Gait Assistive Device: FWW Wheelchair Training Does the Pt Use a Wheelchair?: Yes Wheel 50 ft with 2 turns (QC): 3 Wheel 150 ft (QC): 88 Type of Wheelchair: Manual Stair Training 1 Step (curb) (QC): 9 4 Steps (QC): 9 12 Steps (QC): 9 Balance Picking up an Object (QC): 3 (Min A) ADL-Treatment Eating (QC): 6 Oral Hygiene (QC): 5 Shower/Bathe Self (QC): 2 Upper Body Dressing (QC): 5 Lower Body Dressing (QC): 3 On/Off Footwear (QC): 1 Toileting Hygiene (QC): 1 Assessment/Plan Assessment and Plan Assess & Plan/Chief Complaint Assessment: Compression fractures T11-L2 Fall Indwelling catheter Fibromyalgia Bipolar disorder UTIs Acute encephalopathy due to medications Plan: Supportive care Pain control Lynch catheter to remain for 1 more day Home meds 12/06/2022: Updated sister at the bedside Monitor confusion 12/07/2022: Supportive care Monitor closely (1) Compression fracture of L2 Status: Acute (2) Lumbar radiculopathy Status: Acute (3) Debility Status: Acute GABRIEL VIRGEN DO Dec 07, 2022 05:42
[2022-12-07] MEDS: MULTIVIT W/MINERALS TAB (THERAGRAN M) PO SCH (06:51)
[2022-12-07 08:00] VITALS: BP 145/65
[2022-12-07] MEDS: PANTOPRAZOLE 40 MG (PROTONIX) TAB PO SCH (08:16)
[2022-12-07] MEDS: CALCIUM CARBONATE 600 MG (CALCARB) TAB PO SCH (08:16)
[2022-12-07] MEDS: OMEGA 3 (FISH OIL) 1000 MG CAP PO SCH (08:16)
[2022-12-07] MEDS: LACTOBACILLUS ACIDOPHILUS (PROBIOTIC) CAPSULE PO SCH (08:16)
[2022-12-07] MEDS: SENNA W/DOCUSATE (SENOKOT S) TABLET PO SCH ×3 (08:16→22:01)
[2022-12-07] MEDS: DICLOFENAC 1% GEL 100 GM (VOLTAREN) TUBE TOP SCH ×4 (08:16→22:00)
[2022-12-07] MEDS: VITAMIN D3 25 MCG (1,000 UNITS) TABLET PO SCH (08:16)
[2022-12-07] MEDS: DIVALPROEX 250 MG DELAYED RELEASE (DEPAKOTE) TAB PO SCH ×3 (08:17→22:00)
[2022-12-07] MEDS: FUROSEMIDE 20 MG (LASIX) TAB PO SCH (08:17)
[2022-12-07] MEDS: DICYCLOMINE 10 MG (BENTYL) CAP PO SCH ×3 (08:17→21:59)
[2022-12-07] MEDS: meTOproloL SUCCINATE 50 MG (TOPROL XL) TAB PO SCH (08:17)
[2022-12-07] MEDS: DOCUSATE SODIUM 100 MG (COLACE) CAP PO SCH ×2 (08:17→22:00)
[2022-12-07] MEDS: LORATADINE (CLARITIN) 10 MG TAB PO SCH (08:18)
[2022-12-07] MEDS: FAMOTIDINE 20 MG (PEPCID) TABLET PO SCH ×2 (08:18→08:44)
[2022-12-07] MEDS: TRIAMTERENE/HCTZ 75-50 (MAXZIDE,DYAZIDE) TABLET PO SCH (08:18)
[2022-12-07] MEDS: NAPROXEN 250 MG (NAPROSYN) TABLET PO SCH ×2 (08:18→17:17)
[2022-12-07] MEDS: BIOTIN 10000 MCG PO SCH (08:19)
[2022-12-07] MEDS: LEVOMILNACIPRAN HYDROCHLORIDE 80 MG PO SCH (08:20)
[2022-12-07] MEDS: CRANBERRY EXTRACT 500 MG PO SCH (08:21)
[2022-12-07] MEDS: FLUTICASONE NASAL SPRAY (FLONASE) 16 GM BTL NS SCH ×2 (08:22→09:55)
[2022-12-07] MEDS: GABAPENTIN 300 MG (NEURONTIN) CAP PO SCH ×2 (08:23→21:59)
[2022-12-07] MEDS: LIDOCAINE 4% (SALONPAS) PATCH TOP SCH (08:24)
[2022-12-07] MEDS: CALCITONIN NASAL 200 INTLU/AC (FORTICAL) 3.7 ML BTL SCH (08:25)
[2022-12-07] MEDS: hydrOXYzine (ATARAX) 10 MG TAB PO PRN ×2 (08:43→17:31)
[2022-12-07] MEDS: BACLOFEN 10 MG (LIORESAL) TAB PO SCH ×2 (08:53→21:59)
[2022-12-07] MEDS: polyethylene glycoL POWDER 17 GM (MIRALAX) PACK PO SCH (09:55)
--- NOTE | 2022-12-07 10:47 | Occupational Ther Daily Note ---
OT Current Status-Daily Note Subjective Pt was with PT transferring upon arrival, Pt was all over the place today. PT/OT co-treat ([id number]) ADL-Treatment OT/PT co-treat ([id number]) due to skill of 2 clinician required which a rehab assistant could not preform in order to coordinate UE/LEs. decrease fall risk and due to pt's limitations in strength, mobility, transfers and pain. Ot focused on UE placement cues for sequencing and safety and ADLs, PT focused on LE placement, gross overall movement, and transfers and mobility. Pt transferred into chair in room with FWW, CGA. Therpist doffed back brace. Pt completed exercises including theraputty, medium resistance (red) to address strengthening of fingers, as well as fine motor coordination, dexterity, and manipulation of small objects. Pt retrieved 8 beads before fatiguing. Pt also completed grooming while seating in chair in room independently. Therapist donned compression stocking, dependent for footwear. Pt was left in chair in room, all needs met, call light and phone within reach. Therapy Code Descriptions/Definitions Functional [place] Measure: 0=Not Assessed/NA 4=Minimal Assistance 1=Total Assistance 5=Supervision or Setup 2=Maximal Assistance 6=Modified [place] 3=Moderate Assistance 7=Complete IndependenceSCALE: Activities may be completed with or without assistive devices. 0-Sgnfmxkbvw-fcenfwf completes the activity by him/herself with no assistance from a helper. 5-Set-up or Clean-up Assistance-helper sets up or cleans up; patient completes activity. [place] assists only prior to or following the activity. 4-Supervision or Touching Assistance-helper provides verbal cues and/or touching/steadying and/or contact guard assistance as patient completes activity. Assistance may be provided throughout the activity or intermittently. 3-Partial/Moderate Assistance-helper does LESS THAN HALF the effort. [place] lifts, holds or supports trunk or limbs, but provides less than half the effort. 2-Substantial/Maximal Assistance-helper does MORE THAN HALF the effort. [place] lifts or holds trunk or limbs and provides more than half the effort. 1-Jfdadazhf-bekdso does ALL the effort. Patient does none of the effort to complete the activity. Or, the assistance of 2 or more helpers is required for the patient to complete the activity. If activity was not attempted, code reason: 7-Patient Refused. 9-Not Applicable-not attempted and the patient did not perform the activity before the current illness, exacerbation or injury. 10-Not Attempted due to Environmental Limitations-(lack of equipment, weather restraints, etc.). 88-Not Attempted due to Medical Conditions or Safety Concerns. On/Off Footwear: 1 Education OT Patient Education: Correct positioning, Energy conservation, Instructions don/doff splint/brace, Modified ADL techniques, Progress toward Goal/Update tx plan, Purpose of tx/functional activities Teaching Recipient: Patient Teaching Methods: Discussion Response to Teaching: Verbalize Understanding OT Short Term Goals Short Term Goals Time Frame: Dec 06, 2022 Eatin Oral hygiene: 6 Toileting hygiene: 4 OT Support Dba Goals Support Dba Goals Acute change in mental status: 0 Inattention: 2 Disorganized thinkin Altered level of consciousness: 0 Eating (QC): 6 Oral Hygiene (QC): 6 Toileting Hygiene (QC): 6 (w/ AD) Shower/Bathe Self (QC): 4 Upper Body Dressing (QC): 5 Lower Body Dressing (QC): 5 On/Off Footwear (QC): 5 1=Demonstrate adherence to instructed precautions during ADL tasks. 2=Patient will verbalize/demonstrate understanding of assistive devices/modifications for ADL. 3=Patient will improve strength/tolerance for activity to enable patient to perform ADL's. OT Education/Plan Problem List/Assessment Assessment: Decreased Safety Aware, Decreased UE Strength Discharge Recommendations Plan/Recommendations: Continue POC Treatment Plan/Plan of Care Patient would benefit from OT for education, treatment and training to promote independence in ADL's, mobility, safety and/or upper extremity function for ADL's. Plan of Care: ADL Retraining, Cognitive Retraining, Concurrent Therapy, Functional Mobility, Group Exercise/Act as Ind, Orthotic Fitting/Training, UE Funct Exercise/Act, UE Neuromus Re-Ed/Coord Treatment Duration: Jan 05, 2023 Frequency: At least 5 of 7 days/Wk (IRF) Estimated Hrs Per Day: 1.5 hours per day Agreement: Yes Rehab Potential: Fair Time Start Time: 10:00 Stop Time: 11:00 DATE: Dec 07, 2022 Total Time Billed (hr/min): 60 Billed Treatment Time 1 visit FA 2 EX (60 min total) Co treat time ([id number]) 30 min individual time 30 min Shira Gamino COTA Dec 07, 2022 10:47
--- NOTE | 2022-12-07 12:58 | Physical Therapy Daily Note ---
PT Daily Note-Current Subjective pt in bed upon arrival and willing for therapy. pt was very confused and seeing objects that were no there this day. pt could not focus on task at hand and required Max VC for redirection this day. pt was left with OT after therapy session. OT/PT co-treat form [id number] this day due to skill of 2 clinician required which a medical laboratory technologist could not preform in order to coordinate UE/LEs. decrease fall risk and due to pt's limitations in strength, mobility, transfers and pain. Ot focused on UE placement cues for sequencing and safety and ADLs, PT focused on LE placement, gross overall movement, and transfers and mobility. Pain Section J - Health Conditions 1. Rarely or not at all 2. Occasionally 3. Frequently 4. Almost constantly 8. Unable to answer Pain Effect on Sleep: 2 Pain Interference with Therapy: 4 Pain Interference w/Day-to-Day: 3 Transfers SCALE: Activities may be completed with or without assistive devices. 4-Gxdbiojcxr-lbihzwk completes the activity by him/herself with no assistance from a helper. 5-Set-up or Clean-up Assistance-helper sets up or cleans up; patient completes activity. [place] assists only prior to or following the activity. 4-Supervision or Touching Assistance-helper provides verbal cues and/or touching/steadying and/or contact guard assistance as patient completes activity. Assistance may be provided throughout the activity or intermittently. 3-Partial/Moderate Assistance-helper does LESS THAN HALF the effort. [place] lifts, holds or supports trunk or limbs, but provides less than half the effort. 2-Substantial/Maximal Assistance-helper does MORE THAN HALF the effort. [place] lifts or holds trunk or limbs and provides more than half the effort. 2-Zugccqwdv-bdjabi does ALL the effort. Patient does none of the effort to complete the activity. Or, the assistance of 2 or more helpers is required for the patient to complete the activity. If activity was not attempted, code reason: 7-Patient Refused. 9-Not Applicable-not attempted and the patient did not perform the activity before the current illness, exacerbation or injury. 10-Not Attempted due to Environmental Limitations-(lack of equipment, weather restraints, etc.). 88-Not Attempted due to Medical Conditions or Safety Concerns. Weight Bearing Right Lower Extremity: Right Full Weight Bearing Left Lower Extremity: Left Full Weight Bearing Treatments pt is able to preform bed mobility, bed to chair transfer, sit to stand and ambulation of 32ft with CGA and VC for sequencing and safety. pt has a very slow gait speed and small step length. PT Care Home Goals Spring Repairer Helper Hand Goals PT Spring Repairer Helper Hand Goals Time Frame: Dec 15, 2022 Roll Left & Right (QC): 4 (Pt will be SBA for functional mobility with the FWW to safely d/c home with assistance. ) Sit to Lying (QC): 4 (Pt will be SBA for functional mobility with the FWW to safely d/c home with assistance. ) Lying-Sitting on Side/Bed(QC): 4 (Pt will be SBA for functional mobility with the FWW to safely d/c home with assistance. ) Sit to Stand (QC): 4 (Pt will be SBA for functional mobility with the FWW to safely d/c home with assistance. ) Chair/Qox-wr-Bexjl Xfer(QC): 4 (Pt will be SBA for functional mobility with the FWW to safely d/c home with assistance. ) Toilet Transfer (QC): 4 (Pt will be SBA for functional mobility with the FWW to safely d/c home with assistance. ) Car Transfer (QC): 4 (Pt will be SBA for functional mobility with the FWW to safely d/c home with assistance. ) Does the Patient Walk: Yes Walk 10 feet (QC): 4 (Pt will be SBA for functional mobility with the FWW to safely d/c home with assistance. ) Walk 50ft with 2 Turns (QC): 4 (Pt will be SBA for functional mobility with the FWW to safely d/c home with assistance. ) Walk 150 ft (QC): 4 (Pt will be SBA for functional mobility with the FWW to safely d/c home with assistance. ) Walking 10ft on Uneven Surface: 4 (Pt will be SBA for functional mobility with the FWW to safely d/c home with assistance. ) 1 Step (curb) (QC): 9 4 Steps (QC): 9 12 Steps (QC): 9 Picking up an Object (QC): 4 (Pt will be SBA for functional mobility with the FWW to safely d/c home with assistance. ) Does the Pt use WC or Scooter?: Yes Wheel 50 feet with 2 turns (QC: 6 (Ind with w/c mobility ) Type: Manual Wheel 150 feet: 6 (Ind with w/c mobility ) Type: Manual PT Plan Treatment/Plan Treatment Plan: Continue Plan of Care Treatment Plan: Bed Mobility, Concurrent Therapy, Education, Functional Activity Darrion, Functional Strength, Group Therapy, Gait, Safety, Therapeutic Exercise, Transfers Treatment Duration: Dec 15, 2022 Frequency: At least 5 of 7 days/Wk (IRF) Estimated Hrs Per Day: 1.5 hours per day Patient and/or Family Agrees t: Yes Time Time In: 0930 Time Out: 1030 DATE: Dec 07, 2022 Total Billed Treatment Time: 60 Total Billed Treatment 1 FA x 2 GT x 2 OT/PT co-treat for 30 mins from [id number] DESK MAKER Dec 07, 2022 12:58
--- NOTE | 2022-12-07 13:49 | ST Cognitive Linguistic Eval ---
Speech Evaluation-General Medical Diagnosis Pathological Spinal Fx secondary to Osteoporosis Onset Date: Dec 05, 2022 Therapy Diagnosis Therapy Diagnosis: Impaired Cognition Precautions Precautions: Fall Precautions/Isolations: Fall Prevention, Standard Precautions Referral Referring Physician: Dr. Lilliam Schmidt Reason for Referral: Evaluation/Treatment Medical History Pertinent Medical History: GERD, HTN Reviewed History: Yes Social History Current Living Status: Alone Speech PLF-Current Status Prior Level of Function The patient remained difficult to verbally re-direct on this date. Following questions regarding her prior level of function, the patient reported a story involving her children and the prior seven years of her life. At this time, the clinician was unable to gather accurate prior level of function information. The clinician is aware the patient has a caregiver who provides services to the patient. Subjective The patient was seated upright in her bed, awake and alert, upon entrance to her room by the clinician. The patient greeted the clinician appropriately and was agreeable to participation in the cognitive linguistic evaluation. The patient remained pleasant and cooperative throughout the entirety of the assessment. The patient's primary caregiver was present for the close of the assessment. Language Eval: Auditory Comprehends Simple Yes/No Ques: Functional Indent/Objects Multiple [place]: Functional Follows 1-Step Commands: Functional Follows General Conversations: Moderate (Verbal redirection to topic was required.) Language Eval: Verbal Language Completes Spontaneous Greeting: Functional Word Finding: Moderate Requests Basic Needs: Functional States Basic Personal Info: Functional Objective Cognitive Domain Attention: Moderate Memory: Moderate Problem Solving: Moderate Executive Functions: Moderate Composite Severity Rating: Moderate Objective Formal/Standardized Tests [facility] Mental Status Exam (UMS) Results The patient displayed a result of +11/19 on the SLUMS which correlates to a score of "dementia" per SLUMS rating scale. Oral Motor/Speech Production The patient does not display dysarthria or apraxia of speech. The patient does demonstrate an intermittently rushed rate of speech however remains 100% intelligible in known and unknown contexts. Impression The patient displays a moderate to severe cognitive impairment displaying difficulties in the areas of orientation, delayed recall, problem solving, sequencing, and executive functioning. Consistent re-direction to task is req uired for completion of skilled exercises. Speech Short Term Goals Short Term Goals Short Term Goals 1. The patient will demonstrate memory exercises with 80% accuracy and mild clinician verbal cueing. Time Frame-STG: One Week. Speech Mcfp Goals Mcfp Goals 1. The patient will demonstrate improved cognitive linguistic communication for safe discharge to the least restrictive environment. Time Frame: Two Weeks. Speech-Plan Treatment Plan Speech Therapy Treatment Plan: Continue Plan of Care Treatment Duration: Dec 18, 2022 Frequency: Modified Program (IRF) (Four to five times per week.) Estimated Hrs Per Day: .5 hour per day Rehab Potential: Fair Pt/Family Agrees to Plan: Yes Safety Risks/Education Teaching Recipient: Patient, Primary Caregiver Teaching Methods: Discussion Response to Teaching: Reinforcement Needed Education Topics Provided: Results, Recommendations, Plan of Care Time Speech Therapy Time In: 11:30 Speech Therapy Time Out: 12:00 DATE: Dec 07, 2022 Total Billed Time: 30 Billed Treatment Time 1, RUTH KOWALSKI [facility] Dec 07, 2022 13:49
--- NOTE | 2022-12-07 13:59 | Physical Therapy Daily Note ---
PT Daily Note-Current Subjective pt in bed upon arrival and willing for therapy. pt was finishing lunch and could not seem to focous on finishing lunch. pt required VC and redirection to stay on task and finish this day. Pain Section J - Health Conditions 1. Rarely or not at all 2. Occasionally 3. Frequently 4. Almost constantly 8. Unable to answer Pain Effect on Sleep: 2 Pain Interference with Therapy: 4 Pain Interference w/Day-to-Day: 3 Transfers SCALE: Activities may be completed with or without assistive devices. 4-Vykskuhdlo-rsfaanm completes the activity by him/herself with no assistance from a helper. 5-Set-up or Clean-up Assistance-helper sets up or cleans up; patient completes activity. [place] assists only prior to or following the activity. 4-Supervision or Touching Assistance-helper provides verbal cues and/or touching/steadying and/or contact guard assistance as patient completes activity. Assistance may be provided throughout the activity or intermittently. 3-Partial/Moderate Assistance-helper does LESS THAN HALF the effort. [place] lifts, holds or supports trunk or limbs, but provides less than half the effort. 2-Substantial/Maximal Assistance-helper does MORE THAN HALF the effort. [place] lifts or holds trunk or limbs and provides more than half the effort. 2-Epbwciuzo-kpioka does ALL the effort. Patient does none of the effort to co mplete the activity. Or, the assistance of 2 or more helpers is required for the patient to complete the activity. If activity was not attempted, code reason: 7-Patient Refused. 9-Not Applicable-not attempted and the patient did not perform the activity before the current illness, exacerbation or injury. 10-Not Attempted due to Environmental Limitations-(lack of equipment, weather restraints, etc.). 88-Not Attempted due to Medical Conditions or Safety Concerns. Weight Bearing Right Lower Extremity: Right Full Weight Bearing Left Lower Extremity: Left Full Weight Bearing Treatments pt preformed med mobility with VC to stay on task with Vc for sequencing this day. PT Fpc Goals Fpc Goals PT Fpc Goals Time Frame: Dec 15, 2022 Roll Left & Right (QC): 4 (Pt will be SBA for functional mobility with the FWW to safely d/c home with assistance. ) Sit to Lying (QC): 4 (Pt will be SBA for functional mobility with the FWW to safely d/c home with assistance. ) Lying-Sitting on Side/Bed(QC): 4 (Pt will be SBA for functional mobility with the FWW to safely d/c home with assistance. ) Sit to Stand (QC): 4 (Pt will be SBA for functional mobility with the FWW to safely d/c home with assistance. ) Chair/Tko-rk-Ahxyo Xfer(QC): 4 (Pt will be SBA for functional mobility with the FWW to safely d/c home with assistance. ) Toilet Transfer (QC): 4 (Pt will be SBA for functional mobility with the FWW to safely d/c home with assistance. ) Car Transfer (QC): 4 (Pt will be SBA for functional mobility with the FWW to safely d/c home with assistance. ) Does the Patient Walk: Yes Walk 10 feet (QC): 4 (Pt will be SBA for functional mobility with the FWW to safely d/c home with assistance. ) Walk 50ft with 2 Turns (QC): 4 (Pt will be SBA for functional mobility with the FWW to safely d/c home with assistance. ) Walk 150 ft (QC): 4 (Pt will be SBA for functional mobility with the FWW to safely d/c home with assistance. ) Walking 10ft on Uneven Surface: 4 (Pt will be SBA for functional mobility with the FWW to safely d/c home with assistance. ) 1 Step (curb) (QC): 9 4 Steps (QC): 9 12 Steps (QC): 9 Picking up an Object (QC): 4 (Pt will be SBA for functional mobility with the FWW to safely d/c home with assistance. ) Does the Pt use WC or Scooter?: Yes Wheel 50 feet with 2 turns (QC: 6 (Ind with w/c mobility ) Type: Manual Wheel 150 feet: 6 (Ind with w/c mobility ) Type: Manual PT Plan Treatment/Plan Treatment Plan: Continue Plan of Care Treatment Plan: Bed Mobility, Concurrent Therapy, Education, Functional Activit y Darrion, Functional Strength, Group Therapy, Gait, Safety, Therapeutic Exercise, Transfers Treatment Duration: Dec 15, 2022 Frequency: At least 5 of 7 days/Wk (IRF) Estimated Hrs Per Day: 1.5 hours per day Patient and/or Family Agrees t: Yes Time Time In: 1330 Time Out: 1345 DATE: Dec 07, 2022 Total Billed Treatment Time: 15 Total Billed Treatment [address] AUTOMATED PROCESS OPERATOR Dec 07, 2022 13:59
--- NOTE | 2022-12-07 14:10 | Physical Therapy Daily Note ---
PT Daily Note-Current Pain Section J - Health Conditions 1. Rarely or not at all 2. Occasionally 3. Frequently 4. Almost constantly 8. Unable to answer Pain Effect on Sleep: 2 Pain Interference with Therapy: 4 Pain Interference w/Day-to-Day: 3 Transfers SCALE: Activities may be completed with or without assistive devices. 2-Gckduhbpuu-oqdvmfr completes the activity by him/herself with no assistance from a helper. 5-Set-up or Clean-up Assistance-helper sets up or cleans up; patient completes activity. [place] assists only prior to or following the activity. 4-Supervision or Touching Assistance-helper provides verbal cues and/or touching/steadying and/or contact guard assistance as patient completes activity. Assistance may be provided throughout the activity or intermittently. 3-Partial/Moderate Assistance-helper does LESS THAN HALF the effort. [place] lifts, holds or supports trunk or limbs, but provides less than half the effort. 2-Substantial/Maximal Assistance-helper does MORE THAN HALF the effort. [place] lifts or holds trunk or limbs and provides more than half the effort. 0-Csiqiubin-bypfww does ALL the effort. Patient does none of the effort to complete the activity. Or, the assistance of 2 or more helpers is required for the patient to complete the activity. If activity was not attempted, code reason: 7-Patient Refused. 9-Not Applicable-not attempted and the patient did not perform the activity before the current illness, exacerbation or injury. 10-Not Attempted due to Environmental Limitations-(lack of equipment, weather restraints, etc.). 88-Not Attempted due to Medical Conditions or Safety Concerns. Weight Bearing Right Lower Extremity: Right Full Weight Bearing Left Lower Extremity: Left Full Weight Bearing PT Residential Goals Cafeteria Table Attendant Goals PT Cafeteria Table Attendant Goals Time Frame: Dec 15, 2022 Roll Left & Right (QC): 4 (Pt will be SBA for functional mobility with the FWW to safely d/c home with assistance. ) Sit to Lying (QC): 4 (Pt will be SBA for functional mobility with the FWW to safely d/c home with assistance. ) Lying-Sitting on Side/Bed(QC): 4 (Pt will be SBA for functional mobility with the FWW to safely d/c home with assistance. ) Sit to Stand (QC): 4 (Pt will be SBA for functional mobility with the FWW to safely d/c home with assistance. ) Chair/Gvf-pp-Wrtyd Xfer(QC): 4 (Pt will be SBA for functional mobility with the FWW to safely d/c home with assistance. ) Toilet Transfer (QC): 4 (Pt will be SBA for functional mobility with the FWW to safely d/c home with assistance. ) Car Transfer (QC): 4 (Pt will be SBA for functional mobility with the FWW to safely d/c home with assistance. ) Does the Patient Walk: Yes Walk 10 feet (QC): 4 (Pt will be SBA for functional mobility with the FWW to safely d/c home with assistance. ) Walk 50ft with 2 Turns (QC): 4 (Pt will be SBA for functional mobility with the FWW to safely d/c home with assistance. ) Walk 150 ft (QC): 4 (Pt will be SBA for functional mobility with the FWW to safely d/c home with assistance. ) Walking 10ft on Uneven Surface: 4 (Pt will be SBA for functional mobility with the FWW to safely d/c home with assistance. ) 1 Step (curb) (QC): 9 4 Steps (QC): 9 12 Steps (QC): 9 Picking up an Object (QC): 4 (Pt will be SBA for functional mobility with the FWW to safely d/c home with assistance. ) Does the Pt use WC or Scooter?: Yes Wheel 50 feet with 2 turns (QC: 6 (Ind with w/c mobility ) Type: Manual Wheel 150 feet: 6 (Ind with w/c mobility ) Type: Manual PT Plan Treatment/Plan Treatment Plan: Continue Plan of Care Treatment Plan: Bed Mobility, Concurrent Therapy, Education, Functional Activity Darrion, Functional Strength, Group Therapy, Gait, Safety, Therapeutic Exercise, Transfers Treatment Duration: Dec 15, 2022 Frequency: At least 5 of 7 days/Wk (IRF) Estimated Hrs Per Day: 1.5 hours per day Patient and/or Family Agrees t: Yes Time Time In: 1330 Time Out: 1345 DATE: Dec 07, 2022 Total Billed Treatment Time: 15 Total Billed Treatment [address] ALMOND BLANCHER HAND Dec 07, 2022 14:10
--- NOTE | 2022-12-07 14:31 | Occupational Ther Daily Note ---
OT Current Status-Daily Note Subjective Pt was lying in bed upon arrival, requested a bed linen change, due to spilling drink in bed during lunch. Alert and agreed to therapy. Pt very off the wall talking today, very paranoid and asking about people that aren't in the room. Nrsing notified. ADL-Treatment Pt transferred to EOB and stood with CGA assist, using FWW to ambulate to chair in room so nursing can change linens. Pt sat in chair in room and doffed pants and brief with Min A. Pt also changed clothes and donned dress with set up assist. Pt required max A to becky brace both times during treatment. Todays session focused on functional mobility, functional balance, and upper and lower body dressing. Pt required skilled instruction for hand placement, and verbal cues to stay on task. Therapy Code Descriptions/Definitions Functional [place] Measure: 0=Not Assessed/NA 4=Minimal Assistance 1=Total Assistance 5=Supervision or Setup 2=Maximal Assistance 6=Modified [place] 3=Moderate Assistance 7=Complete IndependenceSCALE: Activities may be completed with or without assistive devices. 7-Fjooazaord-rlrkrwq completes the activity by him/herself with no assistance from a helper. 5-Set-up or Clean-up Assistance-helper sets up or cleans up; patient completes activity. [place] assists only prior to or following the activity. 4-Supervision or Touching Assistance-helper provides verbal cues and/or touching/steadying and/or contact guard assistance as patient completes activity. Assistance may be provided throughout the activity or intermittently. 3-Partial/Moderate Assistance-helper does LESS THAN HALF the effort. [place] lifts, holds or supports trunk or limbs, but provides less than half the effort. 2-Substantial/Maximal Assistance-helper does MORE THAN HALF the effort. [place] lifts or holds trunk or limbs and provides more than half the effort. 6-Sgyeztfuu-tzveen does ALL the effort. Patient does none of the effort to complete the activity. Or, the assistance of 2 or more helpers is required for the patient to complete the activity. If activity was not attempted, code reason: 7-Patient Refused. 9-Not Applicable-not attempted and the patient did not perform the activity before the current illness, exacerbation or injury. 10-Not Attempted due to Environmental Limitations-(lack of equipment, weather restraints, etc.). 88-Not Attempted due to Medical Conditions or Safety Concerns. Upper Body Dressing (QC): 5 Lower Body Dressing (QC): 3 Education OT Patient Education: Correct positioning, Exercise program Teaching Recipient: Patient Teaching Methods: Discussion Response to Teaching: Verbalize Understanding OT Short Term Goals Short Term Goals Time Frame: Dec 06, 2022 Eatin Oral hygiene: 6 Toileting hygiene: 4 OT Personal Lines Account Manager Goals Custodial Goals Acute change in mental status: 0 Inattention: 2 Disorganized thinkin Altered level of consciousness: 0 Eating (QC): 6 Oral Hygiene (QC): 6 Toileting Hygiene (QC): 6 (w/ AD) Shower/Bathe Self (QC): 4 Upper Body Dressing (QC): 5 Lower Body Dressing (QC): 5 On/Off Footwear (QC): 5 1=Demonstrate adherence to instructed precautions during ADL tasks. 2=Patient will verbalize/demonstrate understanding of assistive devices/modifications for ADL. 3=Patient will improve strength/tolerance for activity to enable patient to perform ADL's. OT Education/Plan Problem List/Assessment Assessment: Decreased Activ Tolerance, Decreased Safety Aware, Decreased UE Strength Discharge Recommendations Plan/Recommendations: Continue POC Treatment Plan/Plan of Care Patient would benefit from OT for education, treatment and training to promote independence in ADL's, mobility, safety and/or upper extremity function for ADL's. Plan of Care: ADL Retraining, Cognitive Retraining, Concurrent Therapy, Functional Mobility, Group Exercise/Act as Ind, Orthotic Fitting/Training, UE Funct Exercise/Act, UE Neuromus Re-Ed/Coord Treatment Duration: Jan 05, 2023 Frequency: At least 5 of 7 days/Wk (IRF) Estimated Hrs Per Day: 1.5 hours per day Agreement: Yes Rehab Potential: Fair Time Start Time: 13:45 Stop Time: 14:15 DATE: Dec 07, 2022 Total Time Billed (hr/min): 30 Billed Treatment Time 1 visit ADL 2 (30 min) Shira Gamino COTA Dec 07, 2022 14:31
[2022-12-07] MEDS: NICOTINE 21 MG (NICODERM) PATCH TD SCH (16:50)
[2022-12-07] MEDS: ENOXAPARIN 40 MG/0.4 ML (LOVENOX) SYR SC SCH (17:17)
[2022-12-07 19:33] VITALS: BP 122/59
[2022-12-07] MEDS: GABAPENTIN 100 MG (NEURONTIN) CAP PO SCH (21:59)
[2022-12-07] MEDS: MONTELUKAST 10 MG (SINGULAIR) TAB PO SCH ×2 (21:59)
[2022-12-07] MEDS: LIDOCAINE PATCH REMOVAL TP SCH (22:01)
[2022-12-08] MEDS: MULTIVIT W/MINERALS TAB (THERAGRAN M) PO SCH (06:32)
[2022-12-08 08:00] VITALS: BP 130/60
[2022-12-08] MEDS ORDERED: FENTANYL PATCH REMOVAL TP SCH (08:59)
[2022-12-08] MEDS ORDERED: fentaNYL PATCH 12 MCG (DURAGESIC) TD SCH (09:00)
[2022-12-08] MEDS: CALCIUM CARBONATE 600 MG (CALCARB) TAB PO SCH (09:03)
[2022-12-08] MEDS: buPROPion SR 150 MG (WELLBUTRIN SR) TAB PO SCH ×2 (09:04→21:41)
[2022-12-08] MEDS: DIVALPROEX 250 MG DELAYED RELEASE (DEPAKOTE) TAB PO SCH ×3 (09:04→21:33)
[2022-12-08] MEDS: FUROSEMIDE 20 MG (LASIX) TAB PO SCH ×2 (09:04→09:25)
[2022-12-08] MEDS: GABAPENTIN 300 MG (NEURONTIN) CAP PO SCH ×2 (09:04→21:34)
[2022-12-08] MEDS: DICYCLOMINE 10 MG (BENTYL) CAP PO SCH ×3 (09:04→21:33)
[2022-12-08] MEDS: LACTOBACILLUS ACIDOPHILUS (PROBIOTIC) CAPSULE PO SCH (09:05)
[2022-12-08] MEDS: meTOproloL SUCCINATE 50 MG (TOPROL XL) TAB PO SCH (09:05)
[2022-12-08] MEDS: LORATADINE (CLARITIN) 10 MG TAB PO SCH ×3 (09:05→21:30)
[2022-12-08] MEDS: VITAMIN D3 25 MCG (1,000 UNITS) TABLET PO SCH (09:05)
[2022-12-08] MEDS: PANTOPRAZOLE 40 MG (PROTONIX) TAB PO SCH (09:05)
[2022-12-08] MEDS: NAPROXEN 250 MG (NAPROSYN) TABLET PO SCH ×2 (09:05→09:35)
[2022-12-08] MEDS: OMEGA 3 (FISH OIL) 1000 MG CAP PO SCH ×2 (09:05→09:13)
[2022-12-08] MEDS: LIDOCAINE 4% (SALONPAS) PATCH TOP SCH (09:05)
[2022-12-08] MEDS: BACLOFEN 10 MG (LIORESAL) TAB PO SCH ×4 (09:05→21:36)
[2022-12-08] MEDS: NICOTINE 21 MG (NICODERM) PATCH TD SCH (09:05)
[2022-12-08] MEDS: CRANBERRY EXTRACT 500 MG PO SCH (09:07)
[2022-12-08] MEDS: BIOTIN 10000 MCG PO SCH ×2 (09:07→09:16)
[2022-12-08] MEDS: LEVOMILNACIPRAN HYDROCHLORIDE 80 MG PO SCH (09:07)
--- NOTE | 2022-12-08 09:13 | Physical Therapy Daily Note ---
PT Daily Note-Current Subjective pt was in recliner eating breakfast upon arrival and willing for therapy. pt gets easily distracted and MOD to MAx VC to stay on and finish given task. pt stated no pain this day. pt spoke that she was wanting a consultation with a neurologist and asked if i would relay message to SW pt was left in recliner with call light and all needs met at the end of therapy with nursing going into room to administer Rx this day. Pain Section J - Health Conditions 1. Rarely or not at all 2. Occasionally 3. Frequently 4. Almost constantly 8. Unable to answer Pain Effect on Sleep: 2 Pain Interference with Therapy: 4 Pain Interference w/Day-to-Day: 3 Transfers SCALE: Activities may be completed with or without assistive devices. 9-Sbaisotuax-beojzgl completes the activity by him/herself with no assistance from a helper. 5-Set-up or Clean-up Assistance-helper sets up or cleans up; patient completes activity. [place] assists only prior to or following the activity. 4-Supervision or Touching Assistance-helper provides verbal cues and/or touching/steadying and/or contact guard assistance as patient completes activity. Assistance may be provided throughout the activity or intermittently. 3-Partial/Moderate Assistance-helper does LESS THAN HALF the effort. [place] lifts, holds or supports trunk or limbs, but provides less than half the effort. 2-Substantial/Maximal Assistance-helper does MORE THAN HALF the effort. [place] lifts or holds trunk or limbs and provides more than half the effort. 0-Gnxlqlrum-qjiycq does ALL the effort. Patient does none of the effort to complete the activity. Or, the assistance of 2 or more helpers is required for the patient to complete the activity. If activity was not attempted, code reason: 7-Patient Refused. 9-Not Applicable-not attempted and the patient did not perform the activity before the current illness, exacerbation or injury. 10-Not Attempted due to Environmental Limitations-(lack of equipment, weather restraints, etc.). 88-Not Attempted due to Medical Conditions or Safety Concerns. Roll Left & Right (QC): 6 Sit to Lying (QC): 6 Lying to Sitting/Side of Bed(Q: 6 Sit to Stand (QC): 4 Chair/Wrr-ub-Uetjd Xfer(QC): 4 Weight Bearing Right Lower Extremity: Right Full Weight Bearing Left Lower Extremity: Left Full Weight Bearing Gait Training Walk 10 feet (QC): 4 Walk 50 ft with 2 Turns(QC): 4 Walk 150 ft (QC): 4 Wheelchair Training Wheel 50 ft with 2 turns (QC): 9 Wheel 150 ft (QC): 9 Treatments pt is able to preform to stand with SBA with VC reminder to push up off the chair. pt is able to ambulate a total of 236ft total with RW and CGA. pt ambulated 107ft then required a rest break. pt has a decreased yuan and decreased step length. vc for upright posture 50% of the time to decrease pressure on hands on RW. pt is able to ambulate 129ft the second time with the above stated VC etc still applying. PT Die Tripper Goals Chcf Goals PT Chcf Goals Time Frame: Dec 15, 2022 Roll Left & Right (QC): 4 (Pt will be SBA for functional mobility with the FWW to safely d/c home with assistance. ) Sit to Lying (QC): 4 (Pt will be SBA for functional mobility with the FWW to safely d/c home with assistance. ) Lying-Sitting on Side/Bed(QC): 4 (Pt will be SBA for functional mobility with the FWW to safely d/c home with assistance. ) Sit to Stand (QC): 4 (Pt will be SBA for functional mobility with the FWW to safely d/c home with assistance. ) Chair/Uau-xx-Ozlgm Xfer(QC): 4 (Pt will be SBA for functional mobility with the FWW to safely d/c home with assistance. ) Toilet Transfer (QC): 4 (Pt will be SBA for functional mobility with the FWW to safely d/c home with assistance. ) Car Transfer (QC): 4 (Pt will be SBA for functional mobility with the FWW to safely d/c home with assistance. ) Does the Patient Walk: Yes Walk 10 feet (QC): 4 (Pt will be SBA for functional mobility with the FWW to safely d/c home with assistance. ) Walk 50ft with 2 Turns (QC): 4 (Pt will be SBA for functional mobility with the FWW to safely d/c home with assistance. ) Walk 150 ft (QC): 4 (Pt will be SBA for functional mobility with the FWW to safely d/c home with assistance. ) Walking 10ft on Uneven Surface: 4 (Pt will be SBA for functional mobility with the FWW to safely d/c home with assistance. ) 1 Step (curb) (QC): 9 4 Steps (QC): 9 12 Steps (QC): 9 Picking up an Object (QC): 4 (Pt will be SBA for functional mobility with the FWW to safely d/c home with assistance. ) Does the Pt use WC or Scooter?: Yes Wheel 50 feet with 2 turns (QC: 6 (Ind with w/c mobility ) Type: Manual Wheel 150 feet: 6 (Ind with w/c mobility ) Type: Manual PT Plan Treatment/Plan Treatment Plan: Continue Plan of Care Treatment Plan: Bed Mobility, Concurrent Therapy, Education, Functional Activity Darrion, Functional Strength, Group Therapy, Gait, Safety, Therapeutic Exercise, Transfers Treatment Duration: Dec 15, 2022 Frequency: At least 5 of 7 days/Wk (IRF) Estimated Hrs Per Day: 1.5 hours per day Patient and/or Family Agrees t: Yes Time Time In: 749 Time Out: 904 DATE: Dec 08, 2022 Total Billed Treatment Time: 75 Total Billed Treatment 1 FA GT x [address] SITE SUPERINTENDENT Dec 08, 2022 09:13
[2022-12-08] MEDS: SENNA W/DOCUSATE (SENOKOT S) TABLET PO SCH ×2 (09:16→21:41)
[2022-12-08] MEDS: DOCUSATE SODIUM 100 MG (COLACE) CAP PO SCH ×2 (09:17→21:41)
[2022-12-08] MEDS: TRIAMTERENE/HCTZ 75-50 (MAXZIDE,DYAZIDE) TABLET PO SCH (09:17)
[2022-12-08] MEDS: polyethylene glycoL POWDER 17 GM (MIRALAX) PACK PO SCH (09:17)
[2022-12-08] MEDS: FAMOTIDINE 20 MG (PEPCID) TABLET PO SCH (09:17)
[2022-12-08] MEDS: CALCITONIN NASAL 200 INTLU/AC (FORTICAL) 3.7 ML BTL SCH (09:18)
[2022-12-08] MEDS: FLUTICASONE NASAL SPRAY (FLONASE) 16 GM BTL NS SCH (09:19)
[2022-12-08] MEDS: DICLOFENAC 1% GEL 100 GM (VOLTAREN) TUBE TOP SCH ×4 (09:20→21:35)
--- NOTE | 2022-12-08 11:29 | Occupational Ther Daily Note ---
OT Current Status-Daily Note Subjective pt found in chair in room, alert and cooperative, no pain mentioned, just slightly worn out she said. ADL-Treatment Pt donned brace with Mod A. Using a FWW, CGA, pt ambulated to bathroom. and doffed pants before sitting on shower bench. Therapist doffed brace, dependent. Pt showered self with set up assistance. Pt then dried self off, and therapist donned brace on pt to stand and transfer out of shower. Pt transferred from shower to wheelchair with FWW, with CGA, due to fatigue. Pt completd upper body dressing with set up assist. Pt completed lower body dressing with Min A, threading pants and hiking over buttocks, with verbal cues required, due to pt becoming fatigued from shower. Pt completed grooming while sitting at the sink with set up assist.To work on functional balance and endurance, pt ambulated with FWW, CGA to bed in room. Pt transferred to bed with CGA, laid in bed. Pt was left in bed in room with call light and phone within reach, all needs met. Therapy Code Descriptions/Definitions Functional [place] Measure: 0=Not Assessed/NA 4=Minimal Assistance 1=Total Assistance 5=Supervision or Setup 2=Maximal Assistance 6=Modified [place] 3=Moderate Assistance 7=Complete IndependenceSCALE: Activities may be completed with or without assistive devices. 1-Qzsgmfutoq-yjgyxzd completes the activity by him/herself with no assistance from a helper. 5-Set-up or Clean-up Assistance-helper sets up or cleans up; patient completes activity. [place] assists only prior to or following the activity. 4-Supervision or Touching Assistance-helper provides verbal cues and/or touching/steadying and/or contact guard assistance as patient completes activity. Assistance may be provided throughout the activity or intermittently. 3-Partial/Moderate Assistance-helper does LESS THAN HALF the effort. [place] lifts, holds or supports trunk or limbs, but provides less than half the effort. 2-Substantial/Maximal Assistance-helper does MORE THAN HALF the effort. [place] lifts or holds trunk or limbs and provides more than half the effort. 3-Uwfxhwxcn-lnsbug does ALL the effort. Patient does none of the effort to complete the activity. Or, the assistance of 2 or more helpers is required for the patient to complete the activity. If activity was not attempted, code reason: 7-Patient Refused. 9-Not Applicable-not attempted and the patient did not perform the activity before the current illness, exacerbation or injury. 10-Not Attempted due to Environmental Limitations-(lack of equipment, weather restraints, etc.). 88-Not Attempted due to Medical Conditions or Safety Concerns. Shower/Bathe Self (QC): 5 Upper Body Dressing (QC): 5 Lower Body Dressing (QC): 3 On/Off Footwear: 1 (on this day, due to fatigue) Education OT Patient Education: Correct positioning, Energy conservation, Instructions don/doff splint/brace, Modified ADL techniques, Progress toward Goal/Update tx plan, Purpose of tx/functional activities, Safety issues, Transfer techniques Teaching Recipient: Patient Teaching Methods: Discussion Response to Teaching: Verbalize Understanding OT Short Term Goals Short Term Goals Time Frame: Dec 06, 2022 Eatin Oral hygiene: 6 Toileting hygiene: 4 OT Mcc Goals Mcc Goals Acute change in mental status: 0 Inattention: 2 Disorganized thinkin Altered level of consciousness: 0 Eating (QC): 6 Oral Hygiene (QC): 6 Toileting Hygiene (QC): 6 (w/ AD) Shower/Bathe Self (QC): 4 Upper Body Dressing (QC): 5 Lower Body Dressing (QC): 5 On/Off Footwear (QC): 5 1=Demonstrate adherence to instructed precautions during ADL tasks. 2=Patient will verbalize/demonstrate understanding of assistive devices/modifications for ADL. 3=Patient will improve strength/tolerance for activity to enable patient to perform ADL's. OT Education/Plan Problem List/Assessment Assessment: Decreased Activ Tolerance, Decreased Safety Aware, Decreased UE Strength Discharge Recommendations Plan/Recommendations: Continue POC Treatment Plan/Plan of Care Patient would benefit from OT for education, treatment and training to promote independence in ADL's, mobility, safety and/or upper extremity function for ADL's. Plan of Care: ADL Retraining, Cognitive Retraining, Concurrent Therapy, Functional Mobility, Group Exercise/Act as Ind, Orthotic Fitting/Training, UE Funct Exercise/Act, UE Neuromus Re-Ed/Coord Treatment Duration: Jan 05, 2023 Frequency: At least 5 of 7 days/Wk (IRF) Estimated Hrs Per Day: 1.5 hours per day Agreement: Yes Rehab Potential: Fair Time Start Time: :45 Stop Time: 11:00 DATE: Dec 08, 2022 Total Time Billed (hr/min): 75 Billed Treatment Time 1 Visit ADL 5 Shira Gamino COTA Dec 08, 2022 11:29
--- NOTE | 2022-12-08 11:45 | ST Dysphagia Evaluation ---
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 Lilliam Schmidt Reason for Referral: Evaluation/Treatment Medical History Pertinent Medical History: GERD, HTN Reviewed History: Yes Social History Current Living Status: Alone Speech PLF/Current-Dysphagia Prior Level of Function The patient stated she has experienced swallowing difficulties since the time of her cervical fusion in 2014. The patient reported she experiences choking episodes with dry meat, bread, and pills. At home, the patient stated her pills are capsules which are easier for her to swallow. The patient stated she continues to consume a regular consistency diet with thin liquids, avoiding problematic consistencies. Subjective The patient was seated upright in her recliner, awake and alert, upon entrance to her room by the clinician. The patient greeted the clinician appropriately and was agreeable to participation in the clinical bedside swallowing evaluation. The patient has two nurses present in her room, providing medication throughout the clinician's skilled visit. Cognitive Status Patient Orientation: Person, Place, Time, Situation Oral Motor Skills Dentition: Natural Current Food Consistancy: Regular, Thin Liquids Ability to Follow Directions: Good Oral Expression Ability: Mild Impairment Voice Voice Phonatory-Based Quality: Glottal Phelps Voice Pitch: Normal Voice Loudness: Normal Face Facial Symmetry: Symmetrical Oral-Facial Assessment Oral-Facial Dentition: Normal Labial Seal Description: Normal Smile: Normal Lingual Protrusion: Normal Lingual ROM: Normal Lingual Strength: Normal Volitional Dry Swallow: Yes Voluntary Cough: Yes Can Clear Throat Volitionally: Yes Dysphagia Evaluation Consistencies Presented: Regular (Saltine Cracker), Thin Liquid (Via cup edge. ), Pureed Minimally prolonged mastication with the saltine cracker was appreciated however complete bolus formation was present. Laryngeal elevation present upon the swallow. Due to the consistent redirection to task required throughout the session, limited P.O. trials were provided. Multiple medications were provided with thin liquid via cup edge. Overt s/s of suspected aspiration were not present with multiple cup edge drinks, puree, solid, or pills. The patient presents with a glottal phelps vocal quality which remained consistent prior to and following P.O. trials. Dietary Recommendations: Regular Liquid Recommendations: Thin The patient is extremely educated and specific towards her swallowing strategies and "what works." The patient consistently displayed swallowing strategies and participated in discussions with the clinician regarding additional safe swallowing precautions which could be implemented for improved comfort and safety. The patient consistently displayed safe swallowing precautions throughout the assessment independently. Based on the limited assessment, the clinician recommends the following: - Regular consistency diet with thin liquids, as tolerated. - Fully upright and alert for P.O. intake. - No STRAWS. - Small, single bites and sips. - Crush medication and place in puree for administration. - Alternate solids and liquids on a 1:1 ratio. - Monitor for s/s of suspected aspiration with P.O. intake. If demonstrated, please contact speech pathology. Speech Short Term Goals Short Term Goals Short Term Goals 1. The patient will demonstrate memory exercises with 80% accuracy and mild clinician verbal cueing. 2. The patient will demonstrate safe swallowing strategies with 90% accuracy and mild clinician verbal cueing. Time Frame-STG: One Week. Speech Planer Stone Goals Planer Stone Goals 1. The patient will demonstrate improved cognitive linguistic communication for safe discharge to the least restrictive environment. 2. The patient will tolerate the least restrictive diet consistency without s/s of suspected aspiration. Time Frame: Two Weeks. Speech-Plan Treatment Plan Speech Therapy Treatment Plan: Continue Plan of Care Treatment Duration: Dec 16, 2022 Frequency: Modified Program (IRF) (Four to five times per week.) Estimated Hrs Per Day: .5 hour per day Rehab Potential: Fair Pt/Family Agrees to Plan: Yes Safety Risks/Education Teaching Recipient: Patient Teaching Methods: Discussion Response to Teaching: Verbalize Understanding, Return Demonstration Education Topics Provided: Safe Swallowing Precautions, Recommendations Time Speech Therapy Time In: 09:15 Speech Therapy Time Out: 09:45 DATE: Dec 08, 2022 Total Billed Time: 30 Billed Treatment Time 1, MARK DIC[facility] Dec 08, 2022 11:44
[2022-12-08] MEDS: NICOTINE PATCH REMOVAL TP SCH (11:59)
--- NOTE | 2022-12-08 12:33 | PM&R Progress Note ---
Subjective HPI/CC On Admission Date Seen by Provider: Dec 08, 2022 Time Seen by Provider: 12:30 Subjective/Events-last exam 12/08/2022: Patient doing a lot better Move around better Fentanyl patch off not as drowsy Changed all medications to which she was taking at home 12/07/2022: Patient doing well Less sedation but will pull off fentanyl patch Able to participate in therapy Checked meds and labs 12/06/2022: Patient doing about the same Was able to work with therapy but in between time she is very confused Pain is somewhat controlled Patient has such severe chronic pain and fibromyalgia and difficulty coping with that pain she will need slow recovery time Review of Systems General: Fatigue, Malaise Objective Exam Vital Signs Vital Signs Date Time Temp Pulse Resp B/P (MAP) Pulse Ox O2 Delivery O2 Flow Rate FiO2 12/08/22 09:00 Room Air 12/08/22 08:00 35.4 76 16 130/60 (83) 95 12/07/22 09:00 2.00 Capillary Refill : General Appearance: No Apparent Distress, WD/WN, Chronically ill, Thin, Other (Frail and pale) HEENT: PERRL/EOMI, Normal ENT Inspection, Pharynx Normal Neck: Full Range of Motion, Normal Inspection, Non Tender, Supple, Carotid Bruit Respiratory: Chest Non Tender, Lungs Clear, Normal Breath Sounds, No Accessory Muscle Use, No Respiratory Distress Cardiovascular: Regular Rate, Rhythm, No Edema, No Gallop, No JVD, No Murmur, Normal Peripheral Pulses Gastrointestinal: Normal Bowel Sounds, No Organomegaly, No Pulsatile Mass, Non Tender, Soft Back: CVA Tenderness (L), CVA Tenderness (R), Decreased Range of Motion, Muscle Spasm, Vertebral Tenderness Extremity: Normal Capillary Refill, Normal Inspection, Normal Range of Motion, Non Tender, No Calf Tenderness, No Pedal Edema Neurologic/Psychiatric: Alert, Oriented x3, Normal 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 FIM Transfers Therapy Code Descriptions/Definitions Functional [place] Measure: 0=Not Assessed/NA 4=Minimal Assistance 1=Total Assistance 5=Supervision or Setup 2=Maximal Assistance 6=Modified [place] 3=Moderate Assistance 7=Complete IndependenceSCALE: Activities may be completed with or without assistive devices. 0-Oueaemijyr-eudxyhw completes the activity by him/herself with no assistance from a helper. 5-Set-up or Clean-up Assistance-helper sets up or cleans up; patient completes activity. [place] assists only prior to or following the activity. 4-Supervision or Touching Assistance-helper provides verbal cues and/or touching/steadying and/or contact guard assistance as patient completes activity. Assistance may be provided throughout the activity or intermittently. 3-Partial/Moderate Assistance-helper does LESS THAN HALF the effort. [place] lifts, holds or supports trunk or limbs, but provides less than half the effort. 2-Substantial/Maximal Assistance-helper does MORE THAN HALF the effort. [place] lifts or holds trunk or limbs and provides more than half the effort. 0-Doozgseom-ygntdg does ALL the effort. Patient does none of the effort to complete the activity. Or, the assistance of 2 or more helpers is required for the patient to complete the activity. If activity was not attempted, code reason: 7-Patient Refused. 9-Not Applicable-not attempted and the patient did not perform the activity before the current illness, exacerbation or injury. 10-Not Attempted due to Environmental Limitations-(lack of equipment, weather restraints, etc.). 88-Not Attempted due to Medical Conditions or Safety Concerns. Roll Left to Right (QC): 6 Sit to Lying (QC): 6 Sit to Stand (QC): 4 Chair/Fsh-rr-Krdbd Xfer(QC): 4 Car Transfer (QC): 88 Gait Training Does the Patient Walk?: Yes Walk 10 feet (QC): 4 Walk 50 ft with 2 Turns(QC): 4 Walk 150 ft (QC): 4 Walking 10ft/uneven surface-QC: 88 Gait Assistive Device: FWW Wheelchair Training Does the Pt Use a Wheelchair?: Yes Wheel 50 ft with 2 turns (QC): 9 Wheel 150 ft (QC): 9 Type of Wheelchair: Manual Stair Training 1 Step (curb) (QC): 9 4 Steps (QC): 9 12 Steps (QC): 9 Balance Picking up an Object (QC): 3 (Min A) ADL-Treatment Eating (QC): 6 Oral Hygiene (QC): 5 Shower/Bathe Self (QC): 2 Upper Body Dressing (QC): 5 Lower Body Dressing (QC): 3 On/Off Footwear (QC): 1 Toileting Hygiene (QC): 1 Assessment/Plan Assessment and Plan Assess & Plan/Chief Complaint Assessment: Compression fractures T11-L2 Fall Indwelling catheter Fibromyalgia Bipolar disorder UTIs Acute encephalopathy due to medications Plan: Supportive care Pain control Lynch catheter to remain for 1 more day Home meds 12/06/2022: Updated sister at the bedside Monitor confusion 12/07/2022: Supportive care Monitor closely 12/08/2022: Improved pain DC fentanyl patch (1) Compression fracture of L2 Status: Acute (2) Lumbar radiculopathy Status: Acute (3) Debility Status: Acute GABRIEL VIRGEN DO Dec 08, 2022 12:33
[2022-12-08] MEDS: hydrOXYzine (ATARAX) 10 MG TAB PO PRN (13:44)
[2022-12-08] MEDS ORDERED: DIVA-76 PO (15:32)
[2022-12-08] MEDS: GABAPENTIN 100 MG (NEURONTIN) CAP PO SCH ×2 (17:32→21:36)
[2022-12-08] MEDS: ENOXAPARIN 40 MG/0.4 ML (LOVENOX) SYR SC SCH (17:34)
[2022-12-08 19:30] VITALS: BP 116/71
[2022-12-08] MEDS: ESTRADIOL VAGINAL CREAM 42.5 GM (ESTRACE) VG SCH ×2 (21:30→21:35)
[2022-12-08] MEDS: MONTELUKAST 10 MG (SINGULAIR) TAB PO SCH (21:34)
[2022-12-08] MEDS: ACETAMINOPHEN 325 MG TABLET PO PRN (21:34)
[2022-12-08] MEDS: LIDOCAINE PATCH REMOVAL TP SCH (21:41)
--- NOTE | 2022-12-09 06:43 | PM&R Progress Note ---
Subjective HPI/CC On Admission Date Seen by Provider: Dec 09, 2022 Time Seen by Provider: 12:00 Subjective/Events-last exam 12/09/2022: Much improved Pain controlled UA normal No falls 12/08/2022: Patient doing a lot better Move around better Fentanyl patch off not as drowsy Changed all medications to which she was taking at home 12/07/2022: Patient doing well Less sedation but will pull off fentanyl patch Able to participate in therapy Checked meds and labs 12/06/2022: Patient doing about the same Was able to work with therapy but in between time she is very confused Pain is somewhat controlled Patient has such severe chronic pain and fibromyalgia and difficulty coping with that pain she will need slow recovery time Review of Systems General: Fatigue, Malaise Musculoskeletal: back pain Objective Exam Vital Signs Vital Signs Date Time Temp Pulse Resp B/P (MAP) Pulse Ox O2 Delivery O2 Flow Rate FiO2 12/09/22 09:00 Room Air 12/09/22 07:58 35.6 77 16 145/66 (92) 97 2.00 2.00 Capillary Refill : General Appearance: No Apparent Distress, WD/WN, Chronically ill, Thin, Other (Frail and pale) HEENT: PERRL/EOMI, Normal ENT Inspection, Pharynx Normal Neck: Full Range of Motion, Normal Inspection, Non Tender, Supple, Carotid Bruit Respiratory: Chest Non Tender, Lungs Clear, Normal Breath Sounds, No Accessory Muscle Use, No Respiratory Distress Cardiovascular: Regular Rate, Rhythm, No Edema, No Gallop, No JVD, No Murmur, Normal Peripheral Pulses Gastrointestinal: Normal Bowel Sounds, No Organomegaly, No Pulsatile Mass, Non Tender, Soft Back: CVA Tenderness (L), CVA Tenderness (R), Decreased Range of Motion, Muscle Spasm, Vertebral Tenderness Extremity: Normal Capillary Refill, Normal Inspection, Normal Range of Motion, Non Tender, No Calf Tenderness, No Pedal Edema Neurologic/Psychiatric: Alert, Oriented x3, Normal Mood/Affect, structurer 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 FIM Transfers Therapy Code Descriptions/Definitions Functional [place] Measure: 0=Not Assessed/NA 4=Minimal Assistance 1=Total Assistance 5=Supervision or Setup 2=Maximal Assistance 6=Modified [place] 3=Moderate Assistance 7=Complete IndependenceSCALE: Activities may be completed with or without assistive devices. 3-Fexlpqhvkg-zbktlhb completes the activity by him/herself with no assistance from a helper. 5-Set-up or Clean-up Assistance-helper sets up or cleans up; patient completes activity. [place] assists only prior to or following the activity. 4-Supervision or Touching Assistance-helper provides verbal cues and/or touching/steadying and/or contact guard assistance as patient completes activity. Assistance may be provided throughout the activity or intermittently. 3-Partial/Moderate Assistance-helper does LESS THAN HALF the effort. [place] l ifts, holds or supports trunk or limbs, but provides less than half the effort. 2-Substantial/Maximal Assistance-helper does MORE THAN HALF the effort. [place] lifts or holds trunk or limbs and provides more than half the effort. 4-Refvzcktr-xjnytr does ALL the effort. Patient does none of the effort to complete the activity. Or, the assistance of 2 or more helpers is required for t he patient to complete the activity. If activity was not attempted, code reason: 7-Patient Refused. 9-Not Applicable-not attempted and the patient did not perform the activity before the current illness, exacerbation or injury. 10-Not Attempted due to Environmental Limitations-(lack of equipment, weather restraints, etc.). 88-Not Attempted due to Medical Conditions or Safety Concerns. Roll Left to Right (QC): 6 Sit to Lying (QC): 6 Sit to Stand (QC): 4 Chair/Xrd-wa-Giaan Xfer(QC): 4 Car Transfer (QC): 88 Gait Training Does the Patient Walk?: Yes Walk 10 feet (QC): 4 Walk 50 ft with 2 Turns(QC): 4 Walk 150 ft (QC): 4 Walking 10ft/uneven surface-QC: 88 Gait Assistive Device: FWW Wheelchair Training Does the Pt Use a Wheelchair?: Yes Wheel 50 ft with 2 turns (QC): 9 Wheel 150 ft (QC): 9 Type of Wheelchair: Manual Stair Training 1 Step (curb) (QC): 9 4 Steps (QC): 9 12 Steps (QC): 9 Balance Picking up an Object (QC): 3 (Min A) ADL-Treatment Eating (QC): 6 Oral Hygiene (QC): 5 Shower/Bathe Self (QC): 5 Upper Body Dressing (QC): 5 Lower Body Dressing (QC): 3 On/Off Footwear (QC): 1 (on this day, due to fatigue) Toileting Hygiene (QC): 1 Assessment/Plan Assessment and Plan Assess & Plan/Chief Complaint Assessment: Compression fractures T11-L2 Fall Indwelling catheter Fibromyalgia Bipolar disorder UTIs Acute encephalopathy due to medications Plan: Supportive care Pain control Lynch catheter to remain for 1 more day Home meds 12/06/2022: Updated sister at the bedside Monitor confusion 12/07/2022: Supportive care Monitor closely 12/08/2022: Improved pain DC fentanyl patch 12/09/2022: UA normal (1) Compression fracture of L2 Status: Acute (2) Lumbar radiculopathy Status: Acute (3) Debility Status: Acute GABRIEL VIRGEN DO Dec 09, 2022 06:43
[2022-12-09] MEDS: MULTIVIT W/MINERALS TAB (THERAGRAN M) PO SCH (07:00)
[2022-12-09] MEDS: GABAPENTIN 100 MG (NEURONTIN) CAP PO SCH ×4 (07:00→21:08)
[2022-12-09] MEDS: BACLOFEN 10 MG (LIORESAL) TAB PO SCH ×4 (07:00→21:08)
[2022-12-09 07:58] VITALS: BP 145/66
[2022-12-09] MEDS: buPROPion SR 150 MG (WELLBUTRIN SR) TAB PO SCH (08:49)
[2022-12-09] MEDS: hydrOXYzine (ATARAX) 10 MG TAB PO PRN ×2 (08:49→14:38)
[2022-12-09] MEDS: LEVOMILNACIPRAN HYDROCHLORIDE 80 MG PO SCH (08:51)
[2022-12-09] MEDS: NICOTINE PATCH REMOVAL TP SCH (09:14)
[2022-12-09] MEDS: DICLOFENAC 1% GEL 100 GM (VOLTAREN) TUBE TOP SCH ×4 (09:17→21:09)
[2022-12-09] MEDS: NICOTINE 21 MG (NICODERM) PATCH TD SCH (09:17)
[2022-12-09] MEDS: CRANBERRY EXTRACT 500 MG PO SCH (09:19)
[2022-12-09] MEDS: CALCIUM CARBONATE 600 MG (CALCARB) TAB PO SCH (09:19)
[2022-12-09] MEDS: VITAMIN D3 25 MCG (1,000 UNITS) TABLET PO SCH (09:22)
[2022-12-09] MEDS: NAPROXEN 250 MG (NAPROSYN) TABLET PO SCH (09:22)
[2022-12-09] MEDS: OMEGA 3 (FISH OIL) 1000 MG CAP PO SCH (09:23)
[2022-12-09] MEDS: LACTOBACILLUS ACIDOPHILUS (PROBIOTIC) CAPSULE PO SCH (09:23)
[2022-12-09] MEDS: DIVALPROEX 250 MG DELAYED RELEASE (DEPAKOTE) TAB PO SCH ×2 (09:25→21:08)
[2022-12-09] MEDS: DICYCLOMINE 10 MG (BENTYL) CAP PO SCH ×3 (09:37→21:08)
[2022-12-09] MEDS: DOCUSATE SODIUM 100 MG (COLACE) CAP PO SCH ×2 (09:38→21:09)
[2022-12-09] MEDS: polyethylene glycoL POWDER 17 GM (MIRALAX) PACK PO SCH (09:38)
[2022-12-09] MEDS: SENNA W/DOCUSATE (SENOKOT S) TABLET PO SCH ×2 (09:38→21:09)
[2022-12-09 09:39] LABS: BILIRUBIN,URINE NEGATIVE (NEGATIVE); CLARITY,URINE CLEAR; COLOR,URINE YELLOW; GLUCOSE, URINE (UA) NEGATIVE (NEGATIVE); KETONES,URINE NEGATIVE (NEGATIVE); LEUKOCYTE ESTERASE ,URINE NEGATIVE (NEGATIVE); NITRITE,URINE NEGATIVE (NEGATIVE); PH,URINE 7.5 (5-9); PROTEIN,URINE NEGATIVE (NEGATIVE)
[2022-12-09] MEDS: FAMOTIDINE 20 MG (PEPCID) TABLET PO SCH (09:39)
[2022-12-09] MEDS: PANTOPRAZOLE 40 MG (PROTONIX) TAB PO SCH (09:39)
[2022-12-09] MEDS: TRIAMTERENE/HCTZ 75-50 (MAXZIDE,DYAZIDE) TABLET PO SCH (09:40)
[2022-12-09 09:46] LABS: BACTERIA,URINE NEGATIVE /HPF; SQUAMOUS EPITHELIAL CELL,UR RARE /HPF
[2022-12-09] MEDS: CALCITONIN NASAL 200 INTLU/AC (FORTICAL) 3.7 ML BTL SCH (10:00)
[2022-12-09] MEDS: BIOTIN 10000 MCG PO SCH (10:01)
[2022-12-09] MEDS: LIDOCAINE 4% (SALONPAS) PATCH TOP SCH (11:21)
[2022-12-09] MEDS: ENOXAPARIN 40 MG/0.4 ML (LOVENOX) SYR SC SCH (17:47)
[2022-12-09] MEDS: IBUPROFEN 600 MG (MOTRIN) TAB PO PRN (18:40)
[2022-12-09] MEDS: ACETAMINOPHEN 325 MG TABLET PO PRN (18:40)
[2022-12-09 19:35] VITALS: BP 135/63
[2022-12-09] MEDS: meTOproloL SUCCINATE 50 MG (TOPROL XL) TAB PO SCH (21:07)
[2022-12-09] MEDS: polyethylene glycoL POWDER 17 GM (MIRALAX) PACK PO PRN (21:07)
[2022-12-09] MEDS: MONTELUKAST 10 MG (SINGULAIR) TAB PO SCH (21:08)
[2022-12-09] MEDS: GABAPENTIN 300 MG (NEURONTIN) CAP PO SCH (21:08)
[2022-12-09] MEDS: LORATADINE (CLARITIN) 10 MG TAB PO SCH (21:09)
[2022-12-09] MEDS: LIDOCAINE PATCH REMOVAL TP SCH (21:09)
[2022-12-10] MEDS: GABAPENTIN 100 MG (NEURONTIN) CAP PO SCH ×4 (06:29→23:53)
[2022-12-10] MEDS: BACLOFEN 10 MG (LIORESAL) TAB PO SCH ×4 (06:29→20:34)
[2022-12-10] MEDS: IBUPROFEN 600 MG (MOTRIN) TAB PO PRN ×2 (06:30→13:32)
[2022-12-10] MEDS: ACETAMINOPHEN 325 MG TABLET PO PRN ×2 (06:30→13:33)
[2022-12-10] MEDS: MULTIVIT W/MINERALS TAB (THERAGRAN M) PO SCH (06:30)
--- NOTE | 2022-12-10 06:57 | PM&R Progress Note ---
Subjective HPI/CC On Admission Date Seen by Provider: Dec 10, 2022 Time Seen by Provider: 12:00 Subjective/Events-last exam 12/10/2022: Patient doing well Changed all of her medications to exactly how she takes at home but that varies by the day Pain is controlled Moving around a lot better Still remains fall risk 12/09/2022: Much improved Pain controlled UA normal No falls 12/08/2022: Patient doing a lot better Move around better Fentanyl patch off not as drowsy Changed all medications to which she was taking at home 12/07/2022: Patient doing well Less sedation but will pull off fentanyl patch Able to participate in therapy Checked meds and labs 12/06/2022: Patient doing about the same Was able to work with therapy but in between time she is very confused Pain is somewhat controlled Patient has such severe chronic pain and fibromyalgia and difficulty coping with that pain she will need slow recovery time Review of Systems General: Fatigue, Malaise Objective Exam Vital Signs Vital Signs Date Time Temp Pulse Resp B/P (MAP) Pulse Ox O2 Delivery O2 Flow Rate FiO2 12/10/22 09:45 Room Air 12/10/22 08:00 36.6 77 18 131/59 (83) 98 12/09/22 07:58 2.00 2.00 Capillary Refill : General Appearance: No Apparent Distress, WD/WN, Chronically ill, Thin, Other (Frail and pale) HEENT: PERRL/EOMI, Normal ENT Inspection, Pharynx Normal Neck: Full Range of Motion, Normal Inspection, Non Tender, Supple, Carotid Bruit Respiratory: Chest Non Tender, Lungs Clear, Normal Breath Sounds, No Accessory Muscle Use, No Respiratory Distress Cardiovascular: Regular Rate, Rhythm, No Edema, No Gallop, No JVD, No Murmur, Normal Peripheral Pulses Gastrointestinal: Normal Bowel Sounds, No Organomegaly, No Pulsatile Mass, Non Tender, Soft Back: CVA Tenderness (L), CVA Tenderness (R), Decreased Range of Motion, Muscle Spasm, Vertebral Tenderness Extremity: Normal Capillary Refill, Normal Inspection, Normal Range of Motion, Non Tender, No Calf Tenderness, No Pedal Edema Neurologic/Psychiatric: Alert, Oriented x3, Normal 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 FIM Transfers Therapy Code Descriptions/Definitions Functional [place] Measure: 0=Not Assessed/NA 4=Minimal Assistance 1=Total Assistance 5=Supervision or Setup 2=Maximal Assistance 6=Modified [place] 3=Moderate Assistance 7=Complete IndependenceSCALE: Activities may be completed with or without assistive devices. 0-Trxonowimz-tmupxao completes the activity by him/herself with no assistance from a helper. 5-Set-up or Clean-up Assistance-helper sets up or cleans up; patient completes activity. [place] assists only prior to or following the activity. 4-Supervision or Touching Assistance-helper provides verbal cues and/or touching/steadying and/or contact guard assistance as patient completes activity. Assistance may be provided throughout the activity or intermittently. 3-Partial/Moderate Assistance-helper does LESS THAN HALF the effort. [place] lifts, holds or supports trunk or limbs, but provides less than half the effort. 2-Substantial/Maximal Assistance-helper does MORE THAN HALF the effort. [place] lifts or holds trunk or limbs and provides more than half the effort. 8-Jjcqydsup-bvxzeg does ALL the effort. Patient does none of the effort to complete the activity. Or, the assistance of 2 or more helpers is required for the patient to complete the activity. If activity was not attempted, code reason: 7-Patient Refused. 9-Not Applicable-not attempted and the patient did not perform the activity before the current illness, exacerbation or injury. 10-Not Attempted due to Environmental Limitations-(lack of equipment, weather restraints, etc.). 88-Not Attempted due to Medical Conditions or Safety Concerns. Roll Left to Right (QC): 6 Sit to Lying (QC): 6 Sit to Stand (QC): 4 Chair/Yla-sp-Xzgwj Xfer(QC): 4 Car Transfer (QC): 88 Gait Training Does the Patient Walk?: Yes Walk 10 feet (QC): 4 Walk 50 ft with 2 Turns(QC): 4 Walk 150 ft (QC): 4 Walking 10ft/uneven surface-QC: 88 Gait Assistive Device: FWW Wheelchair Training Does the Pt Use a Wheelchair?: Yes Wheel 50 ft with 2 turns (QC): 9 Wheel 150 ft (QC): 9 Type of Wheelchair: Manual Stair Training 1 Step (curb) (QC): 9 4 Steps (QC): 9 12 Steps (QC): 9 Balance Picking up an Object (QC): 3 (Min A) ADL-Treatment Eating (QC): 6 Oral Hygiene (QC): 5 Shower/Bathe Self (QC): 5 Upper Body Dressing (QC): 5 Lower Body Dressing (QC): 3 On/Off Footwear (QC): 1 (on this day, due to fatigue) Toileting Hygiene (QC): 1 Assessment/Plan Assessment and Plan Assess & Plan/Chief Complaint Assessment: Compression fractures T11-L2 Fall Indwelling catheter Fibromyalgia Bipolar disorder UTIs no evidence of acute UTI here UA sterile in and out cath is normal Acute encephalopathy due to medications Tremors Plan: Supportive care Pain control Lynch catheter to remain for 1 more day Home meds 12/06/2022: Updated sister at the bedside Monitor confusion 12/07/2022: Supportive care Monitor closely 12/08/2022: Improved pain DC fentanyl patch 12/09/2022: UA normal 12/10/2022: Fall risk remains Aggressive rehab (1) Compression fracture of L2 Status: Acute (2) Lumbar radiculopathy Status: Acute (3) Debility Status: Acute GABRIEL VIRGEN DO Dec 10, 2022 06:57
[2022-12-10] MEDS: FAMOTIDINE 20 MG (PEPCID) TABLET PO SCH (07:55)
[2022-12-10] MEDS: buPROPion SR 150 MG (WELLBUTRIN SR) TAB PO SCH (07:55)
[2022-12-10] MEDS: PANTOPRAZOLE 40 MG (PROTONIX) TAB PO SCH (07:55)
[2022-12-10] MEDS: DICYCLOMINE 10 MG (BENTYL) CAP PO SCH ×3 (07:55→20:48)
[2022-12-10] MEDS: NICOTINE 21 MG (NICODERM) PATCH TD SCH (07:56)
[2022-12-10] MEDS: TRIAMTERENE/HCTZ 75-50 (MAXZIDE,DYAZIDE) TABLET PO SCH (07:56)
[2022-12-10] MEDS: LACTOBACILLUS ACIDOPHILUS (PROBIOTIC) CAPSULE PO SCH (07:56)
[2022-12-10] MEDS: DIVALPROEX 250 MG DELAYED RELEASE (DEPAKOTE) TAB PO SCH ×2 (07:56→20:41)
[2022-12-10] MEDS: LIDOCAINE 4% (SALONPAS) PATCH TOP SCH (07:56)
[2022-12-10] MEDS: DOCUSATE SODIUM 100 MG (COLACE) CAP PO SCH ×2 (07:56→20:35)
[2022-12-10] MEDS: polyethylene glycoL POWDER 17 GM (MIRALAX) PACK PO PRN ×2 (07:56→20:32)
[2022-12-10] MEDS: LEVOMILNACIPRAN HYDROCHLORIDE 80 MG PO SCH (07:58)
[2022-12-10] MEDS: BIOTIN 10000 MCG PO SCH (07:58)
[2022-12-10] MEDS: NICOTINE PATCH REMOVAL TP SCH (07:58)
[2022-12-10 08:00] VITALS: BP 131/59
[2022-12-10] MEDS: DICLOFENAC 1% GEL 100 GM (VOLTAREN) TUBE TOP SCH ×4 (08:02→20:32)
[2022-12-10] MEDS: CRANBERRY EXTRACT 500 MG PO SCH (08:18)
[2022-12-10] MEDS: CALCIUM CARBONATE 600 MG (CALCARB) TAB PO SCH (08:19)
[2022-12-10] MEDS: CALCITONIN NASAL 200 INTLU/AC (FORTICAL) 3.7 ML BTL SCH (08:19)
[2022-12-10] MEDS: SENNA W/DOCUSATE (SENOKOT S) TABLET PO SCH ×2 (08:20→20:35)
[2022-12-10] MEDS: OMEGA 3 (FISH OIL) 1000 MG CAP PO SCH (08:20)
[2022-12-10] MEDS: VITAMIN D3 25 MCG (1,000 UNITS) TABLET PO SCH (08:20)
[2022-12-10] MEDS: ESTRADIOL VAGINAL CREAM 42.5 GM (ESTRACE) VG SCH (09:54)
[2022-12-10] MEDS: hydrOXYzine (ATARAX) 10 MG TAB PO PRN (13:21)
[2022-12-10] MEDS: ENOXAPARIN 40 MG/0.4 ML (LOVENOX) SYR SC SCH (17:34)
[2022-12-10 19:27] VITALS: BP 124/82
[2022-12-10] MEDS: GABAPENTIN 300 MG (NEURONTIN) CAP PO SCH (20:34)
[2022-12-10] MEDS: meTOproloL SUCCINATE 50 MG (TOPROL XL) TAB PO SCH (20:35)
[2022-12-10] MEDS: MONTELUKAST 10 MG (SINGULAIR) TAB PO SCH (20:35)
[2022-12-10] MEDS: LIDOCAINE PATCH REMOVAL TP SCH (20:38)
[2022-12-10] MEDS ORDERED: PATIENT MAY USE OWN MED,SINGLE MED PO SCH (21:00)
[2022-12-11] MEDS: IBUPROFEN 600 MG (MOTRIN) TAB PO PRN (05:59)
[2022-12-11] MEDS: ACETAMINOPHEN 325 MG TABLET PO PRN ×2 (05:59→21:03)
[2022-12-11] MEDS: BACLOFEN 10 MG (LIORESAL) TAB PO SCH ×4 (05:59→23:05)
[2022-12-11] MEDS: GABAPENTIN 100 MG (NEURONTIN) CAP PO SCH ×4 (06:00→23:04)
[2022-12-11 06:01] LABS: BASOPHILS # (AUTO) 0.1 10^3/uL (0.0-0.1); BASOPHILS % (AUTO) 1 % (0-10); EOSINOPHILS % (AUTO) 0 % (0-10); HEMATOCRIT 37 % (35-52); HEMOGLOBIN 12.7 g/dL (11.5-16.0); LYMPHOCYTES # (AUTO) 2.7 10^3/uL (1.0-4.0); LYMPHOCYTES % (AUTO) 27 % (12-44); MEAN CORPUSCULAR HEMOGLOBIN 31 pg (25-34); MEAN CORPUSCULAR HGB CONC 34 g/dL (32-36); MEAN CORPUSCULAR VOLUME 90 fL (80-99); MEAN PLATELET VOLUME 9.6 fL (9.0-12.2); MONOCYTES # (AUTO) 1.4 10^3/uL (0.0-1.0); MONOCYTES % (AUTO) 14 % (0-12); NEUTROPHILS # (AUTO) 5.5 10^3/uL (1.8-7.8); NEUTROPHILS % (AUTO) 56 % (42-75); PLATELET COUNT 368 10^3/uL (130-400); WHITE BLOOD COUNT 9.7 10^3/uL (4.3-11.0)
--- NOTE | 2022-12-11 06:02 | PM&R Progress Note ---
Subjective HPI/CC On Admission Date Seen by Provider: Dec 11, 2022 Time Seen by Provider: 10:00 Subjective/Events-last exam 12/11/2022: Patient doing a lot better No pain is reported other than the back Participation is good Slow recovery 12/10/2022: Patient doing well Changed all of her medications to exactly how she takes at home but that varies by the day Pain is controlled Moving around a lot better Still remains fall risk 12/09/2022: Much improved Pain controlled UA normal No falls 12/08/2022: Patient doing a lot better Move around better Fentanyl patch off not as drowsy Changed all medications to which she was taking at home 12/07/2022: Patient doing well Less sedation but will pull off fentanyl patch Able to participate in therapy Checked meds and labs 12/06/2022: Patient doing about the same Was able to work with therapy but in between time she is very confused Pain is somewhat controlled Patient has such severe chronic pain and fibromyalgia and difficulty coping with that pain she will need slow recovery time Review of Systems General: Fatigue, Malaise Objective Exam Vital Signs Vital Signs Date Time Temp Pulse Resp B/P (MAP) Pulse Ox O2 Delivery O2 Flow Rate FiO2 12/11/22 21:00 97 Room Air 12/11/22 20:56 36.0 89 16 108/69 (82) 12/09/22 07:58 2.00 2.00 Capillary Refill : General Appearance: No Apparent Distress, WD/WN, Chronically ill, Thin, Other (Frail and pale) HEENT: PERRL/EOMI, Normal ENT Inspection, Pharynx Normal Neck: Full Range of Motion, Normal Inspection, Non Tender, Supple, Carotid Bruit Respiratory: Chest Non Tender, Lungs Clear, Normal Breath Sounds, No Accessory Muscle Use, No Respiratory Distress Cardiovascular: Regular Rate, Rhythm, No Edema, No Gallop, No JVD, No Murmur, Normal Peripheral Pulses Gastrointestinal: Normal Bowel Sounds, No Organomegaly, No Pulsatile Mass, Non Tender, Soft Back: CVA Tenderness (L), CVA Tenderness (R), Decreased Range of Motion, Muscle Spasm, Vertebral Tenderness Extremity: Normal Capillary Refill, Normal Inspection, Normal Range of Motion, Non Tender, No Calf Tenderness, No Pedal Edema Neurologic/Psychiatric: Alert, Oriented x3, Normal Mood/Affect, flight paramedic II-XII Norm as Tested, Abnormal Gait, Depressed Affect, Motor Weakness ( generalized especially lower extremities) Skin: Normal Color, Warm/Dry Lymphatic: No Adenopathy Results/Procedures Lab Laboratory Tests 12/11/22 05:45 Patient resulted labs reviewed. FIM Transfers Therapy Code Descriptions/Definitions Functional [place] Measure: 0=Not Assessed/NA 4=Minimal Assistance 1=Total Assistance 5=Supervision or Setup 2=Maximal Assistance 6=Modified [place] 3=Moderate Assistance 7=Complete IndependenceSCALE: Activities may be completed with or without assistive devices. 3-Wgrpjuwxqj-ysveezb completes the activity by him/herself with no assistance from a helper. 5-Set-up or Clean-up Assistance-helper sets up or cleans up; patient completes activity. [place] assists only prior to or following the activity. 4-Supervision or Touching Assistance-helper provides verbal cues and/or touching/steadying and/or contact guard assistance as patient completes activity. Assistance may be provided throughout the activity or intermittently. 3-Partial/Moderate Assistance-helper does LESS THAN HALF the effort. [place] lifts, holds or supports trunk or limbs, but provides less than half the effort. 2-Substantial/Maximal Assistance-helper does MORE THAN HALF the effort. [place] lifts or holds trunk or limbs and provides more than half the effort. 1-Zczikncej-wgpgkv does ALL the effort. Patient does none of the effort to complete the activity. Or, the assistance of 2 or more helpers is required for the patient to complete the activity. If activity was not attempted, code reason: 7-Patient Refused. 9-Not Applicable-not attempted and the patient did not perform the activity before the current illness, exacerbation or injury. 10-Not Attempted due to Environmental Limitations-(lack of equipment, weather restraints, etc.). 88-Not Attempted due to Medical Conditions or Safety Concerns. Roll Left to Right (QC): 6 Sit to Lying (QC): 6 Sit to Stand (QC): 4 Chair/Och-jw-Pfuui Xfer(QC): 4 Car Transfer (QC): 88 Gait Training Does the Patient Walk?: Yes Walk 10 feet (QC): 4 Walk 50 ft with 2 Turns(QC): 4 Walk 150 ft (QC): 4 Walking 10ft/uneven surface-QC: 88 Gait Assistive Device: FWW Wheelchair Training Does the Pt Use a Wheelchair?: Yes Wheel 50 ft with 2 turns (QC): 9 Wheel 150 ft (QC): 9 Type of Wheelchair: Manual Stair Training 1 Step (curb) (QC): 9 4 Steps (QC): 9 12 Steps (QC): 9 Balance Picking up an Object (QC): 3 (Min A) ADL-Treatment Eating (QC): 6 Oral Hygiene (QC): 5 Shower/Bathe Self (QC): 5 Upper Body Dressing (QC): 5 Lower Body Dressing (QC): 3 On/Off Footwear (QC): 1 (on this day, due to fatigue) Toileting Hygiene (QC): 1 Assessment/Plan Assessment and Plan Assess & Plan/Chief Complaint Assessment: Compression fractures T11-L2 Fall Indwelling catheter Fibromyalgia Bipolar disorder UTIs no evidence of acute UTI here UA sterile in and out cath is normal Acute encephalopathy due to medications Tremors Plan: Supportive care Pain control Lynch catheter to remain for 1 more day Home meds 12/06/2022: Updated sister at the bedside Monitor confusion 12/07/2022: Supportive care Monitor closely 12/08/2022: Improved pain DC fentanyl patch 12/09/2022: UA normal 12/10/2022: Fall risk remains Aggressive rehab 12/11/2022: Supportive care Monitor closely (1) Compression fracture of L2 Status: Acute (2) Lumbar radiculopathy Status: Acute (3) Debility Status: Acute GABRIEL VIRGEN DO Dec 11, 2022 06:02
[2022-12-11] MEDS: MULTIVIT W/MINERALS TAB (THERAGRAN M) PO SCH (06:03)
[2022-12-11 06:22] LABS: ALBUMIN 3.6 GM/DL (3.2-4.5); BILIRUBIN,TOTAL 0.4 MG/DL (0.1-1.0); CREATININE SERUM 0.76 MG/DL (0.60-1.30); POTASSIUM 4.2 MMOL/L (3.6-5.0); TOTAL PROTEIN 6.4 GM/DL (6.4-8.2)
[2022-12-11] MEDS: hydrOXYzine (ATARAX) 10 MG TAB PO PRN (06:22)
[2022-12-11 07:56] VITALS: BP 140/65
[2022-12-11] MEDS: LIDOCAINE 4% (SALONPAS) PATCH TOP SCH (08:21)
[2022-12-11] MEDS: NICOTINE PATCH REMOVAL TP SCH (08:21)
[2022-12-11] MEDS: NICOTINE 21 MG (NICODERM) PATCH TD SCH (08:21)
[2022-12-11] MEDS: DICYCLOMINE 10 MG (BENTYL) CAP PO SCH ×3 (08:21→23:04)
[2022-12-11] MEDS: DOCUSATE SODIUM 100 MG (COLACE) CAP PO SCH ×2 (08:22→23:00)
[2022-12-11] MEDS: SENNA W/DOCUSATE (SENOKOT S) TABLET PO SCH ×2 (08:22→23:00)
[2022-12-11] MEDS: PANTOPRAZOLE 40 MG (PROTONIX) TAB PO SCH (08:22)
[2022-12-11] MEDS: DIVALPROEX 250 MG DELAYED RELEASE (DEPAKOTE) TAB PO SCH ×2 (08:23→23:09)
[2022-12-11] MEDS: LACTOBACILLUS ACIDOPHILUS (PROBIOTIC) CAPSULE PO SCH (08:24)
[2022-12-11] MEDS: FAMOTIDINE 20 MG (PEPCID) TABLET PO SCH (08:24)
[2022-12-11] MEDS: VITAMIN D3 25 MCG (1,000 UNITS) TABLET PO SCH (08:25)
[2022-12-11] MEDS: buPROPion SR 150 MG (WELLBUTRIN SR) TAB PO SCH (08:25)
[2022-12-11] MEDS: DICLOFENAC 1% GEL 100 GM (VOLTAREN) TUBE TOP SCH ×4 (08:25→23:12)
[2022-12-11] MEDS: CALCITONIN NASAL 200 INTLU/AC (FORTICAL) 3.7 ML BTL SCH (08:26)
[2022-12-11] MEDS: LEVOMILNACIPRAN HYDROCHLORIDE 80 MG PO SCH (08:27)
[2022-12-11] MEDS: BIOTIN 10000 MCG PO SCH (08:28)
[2022-12-11] MEDS: SODIUM CHLORIDE 1 GM TABLET PO SCH ×2 (08:58→21:01)
--- NOTE | 2022-12-11 09:14 | Physical Therapy Daily Note ---
PT Daily Note-Current Subjective Pt in recliner and willing for therapy. pt reports pain only in for arms when ambulating and requires standing rest breaks to "shake" her arms out. pt states 6/10 pain but goes away when not pushing her RW. pt educated on correct way to hold and ambulate with RW to alleviate pressure on her forearms. pt adheres to this 25% of the time. pt was left in bed in room with call light and nurse was administering meds at the end of therapy. Pain Section J - Health Conditions 1. Rarely or not at all 2. Occasionally 3. Frequently 4. Almost constantly 8. Unable to answer Pain Effect on Sleep: 2 Pain Interference with Therapy: 3 Pain Interference w/Day-to-Day: 2 Mental Status Patient Orientation: Person, Place, Situation Transfers SCALE: Activities may be completed with or without assistive devices. 6-Miafmzqwpt-hzohczs completes the activity by him/herself with no assistance from a helper. 5-Set-up or Clean-up Assistance-helper sets up or cleans up; patient completes activity. [place] assists only prior to or following the activity. 4-Supervision or Touching Assistance-helper provides verbal cues and/or touching/steadying and/or contact guard assistance as patient completes activity. Assistance may be provided throughout the activity or intermittently. 3-Partial/Moderate Assistance-helper does LESS THAN HALF the effort. [place] lifts, holds or supports trunk or limbs, but provides less than half the effort. 2-Substantial/Maximal Assistance-helper does MORE THAN HALF the effort. [place] lifts or holds trunk or limbs and provides more than half the effort. 9-Sfeiepcta-fdvptb does ALL the effort. Patient does none of the effort to complete the activity. Or, the assistance of 2 or more helpers is required for the patient to complete the activity. If activity was not attempted, code reason: 7-Patient Refused. 9-Not Applicable-not attempted and the patient did not perform the activity before the current illness, exacerbation or injury. 10-Not Attempted due to Environmental Limitations-(lack of equipment, weather restraints, etc.). 88-Not Attempted due to Medical Conditions or Safety Concerns. Roll Left & Right (QC): 6 Sit to Lying (QC): 6 Lying to Sitting/Side of Bed(Q: 6 Sit to Stand (QC): 6 Chair/Fbx-lv-Oyudw Xfer(QC): 5 Toilet Transfer (QC): 5 Car Transfer (QC): 4 Weight Bearing Right Lower Extremity: Right Full Weight Bearing Left Lower Extremity: Left Full Weight Bearing Wheelchair Training Wheel 50 ft with 2 turns (QC): 9 Wheel 150 ft (QC): 9 Stair Training 4 Steps (QC): 4 Treatments Pt was able to ambulate 40ft with RW and a very slow yuan with small step length times 2.. pt is able to execute car transfer with VC of 50% for safety and sequencing CGA due to lack of balance with some arms and legs shaking this day. pt is able to execute 4 stairs with CGA and without reciprocal stair ascending or descending. pt requires VC for hand placement using BHR. Assessment Current Status: Good Progress PT Train Electronic Technician Goals Assisted Goals PT Assisted Goals Time Frame: Dec 15, 2022 Roll Left & Right (QC): 4 (Pt will be SBA for functional mobility with the FWW to safely d/c home with assistance. ) Sit to Lying (QC): 4 (Pt will be SBA for functional mobility with the FWW to safely d/c home with assistance. ) Lying-Sitting on Side/Bed(QC): 4 (Pt will be SBA for functional mobility with the FWW to safely d/c home with assistance. ) Sit to Stand (QC): 4 (Pt will be SBA for functional mobility with the FWW to safely d/c home with assistance. ) Chair/Hhh-ac-Ezsbi Xfer(QC): 4 (Pt will be SBA for functional mobility with the FWW to safely d/c home with assistance. ) Toilet Transfer (QC): 4 (Pt will be SBA for functional mobility with the FWW to safely d/c home with assistance. ) Car Transfer (QC): 4 (Pt will be SBA for functional mobility with the FWW to safely d/c home with assistance. ) Does the Patient Walk: Yes Walk 10 feet (QC): 4 (Pt will be SBA for functional mobility with the FWW to safely d/c home with assistance. ) Walk 50ft with 2 Turns (QC): 4 (Pt will be SBA for functional mobility with the FWW to safely d/c home with assistance. ) Walk 150 ft (QC): 4 (Pt will be SBA for functional mobility with the FWW to safely d/c home with assistance. ) Walking 10ft on Uneven Surface: 4 (Pt will be SBA for functional mobility with the FWW to safely d/c home with assistance. ) 1 Step (curb) (QC): 9 4 Steps (QC): 9 12 Steps (QC): 9 Picking up an Object (QC): 4 (Pt will be SBA for functional mobility with the FWW to safely d/c home with assistance. ) Does the Pt use WC or Scooter?: Yes Wheel 50 feet with 2 turns (QC: 6 (Ind with w/c mobility ) Type: Manual Wheel 150 feet: 6 (Ind with w/c mobility ) Type: Manual PT Plan Treatment/Plan Treatment Plan: Continue Plan of Care Treatment Plan: Bed Mobility, Concurrent Therapy, Education, Functional Activity [place], Functional Strength, Group Therapy, Gait, Safety, Therapeutic Exercise, Transfers Treatment Duration: Dec 15, 2022 Frequency: At least 5 of 7 days/Wk (IRF) Estimated Hrs Per Day: 1.5 hours per day Patient and/or Family Agrees t: Yes Time Time In: 0800 Time Out: 15 DATE: Dec 11, 2022 Total Billed Treatment Time: 75 Total Billed Treatment 1 GT x 2 FA x [address] FLOW SPECIALIST Dec 11, 2022 09:14
[2022-12-11] MEDS: CALCIUM CARBONATE 600 MG (CALCARB) TAB PO SCH (09:15)
[2022-12-11] MEDS: OMEGA 3 (FISH OIL) 1000 MG CAP PO SCH (09:15)
[2022-12-11] MEDS: CRANBERRY EXTRACT 500 MG PO SCH (09:15)
--- NOTE | 2022-12-11 09:57 | Speech Therapy Daily Note ---
Speech Daily Progress Note Subjective Date Seen by Provider: Dec 11, 2022 Time Seen by Provider: 09:15 The patient was reclined in her bed, awake and alert, upon entrance to her room by the clinician. The patient greeted the clinician appropriately and was agreeable to participation in the skilled cognitive therapy session. The RN was present for administration of medication. Objective The patient requires consistent, maximum verbal redirection for limited topic and task maintenance. The patient does display great functional recall of current medications, naming specific medications and dosages to the RN. The RN has more than 13 medications to provide to the patient. On the prior treatment date, the patient stated she was agreeable to crushing medication to ease administration. During today's visit, the patient's medications are not crushed and the clinician asked the patient if she wished to return to medication whole. Per patient, "when they are crushed they are gravely so I just told them to give them to me whole." While medications are not crushed, large medications continue to need to be halved. The patient consumed multiple bottle edge drinks of water to consume three medications. Verbal redirection from the RN and the clinician remains necessary to attempt pill administration. The patient consumed three pills with multiple drinks of water without s/s of suspected aspiration. The three pills required more than ten minutes due to the patient's distractibility. Following the third pill, the patient became nauseous and emesis was produced. The clinician and RN worked to calm the patient and provide appropriate therapeutic interventions. Once the patient was not longer vomiting, the clinician ended the treatment session. The RN was currently attempted to locate a medication for nausea. Assessment Assessment Current Status: Fair Progress Treatment Plan Continue Plan of Care Speech Short Term Goals Short Term Goals Short Term Goals 1. The patient will demonstrate memory exercises with 80% accuracy and mild clinician verbal cueing. 2. The patient will demonstrate safe swallowing strategies with 90% accuracy and mild clinician verbal cueing. Time Frame-STG: One Week. Speech Processes Chemical Design Engineer Goals Nursing Home Goals 1. The patient will demonstrate improved cognitive linguistic communication for safe discharge to the least restrictive environment. 2. The patient will tolerate the least restrictive diet consistency without s/s of suspected aspiration. Time Frame: Two Weeks. Speech-Plan Treatment Plan Speech Therapy Treatment Plan: Continue Plan of Care Treatment Duration: Dec 16, 2022 Frequency: Modified Program (IRF) (Four to five times per week.) Estimated Hrs Per Day: .5 hour per day Rehab Potential: Fair Pt/Family Agrees to Plan: Yes Safety Risks/Education Teaching Recipient: Patient Teaching Methods: Discussion Response to Teaching: Reinforcement Needed Education Topics Provided: Safe Swallowing Precautions Time Speech Therapy Time In: 09:15 Speech Therapy Time Out: 09:45 DATE: Dec 11, 2022 Total Billed Time: 30 Billed Treatment Time 1, DYST, SLLEBRON RAE Dec 11, 2022 09:57
[2022-12-11] MEDS: ONDANSETRON 4 MG (ZOFRAN) ORAL DISSOLVE TAB PO PRN (10:10)
[2022-12-11] MEDS: PROMETHAZINE INJ 25 MG/ML (PHENERGAN) AMP IVP PRN ×2 (10:40→21:23)
--- NOTE | 2022-12-11 11:36 | Occupational Ther Daily Note ---
OT Current Status-Daily Note Subjective Pt lying in bed upon arrival, agreed to therapy, and requesting a shower. Pt alert and cooperative. ADL-Treatment Pt sat EOB with min A due to being "sore" stated by pt. Pt donned back brace with verbal cues and set up assist. Pt then ambulated with FWW, CGA. Pt transferred to shower bench chair, and doffed clothing and brace with verbal cues for sequencing. Pt showered/bathed self with Gavin, due to spinal precaut ions, not able to stand without back brace, pt could not complete task of cleaning bottom in shower. After pt completed shower, pt donned brace requiring verbal cues to place brace correctly, before transferring into wheelchair in bathroom. Pt dried self and completed upper and lower body dressing while seated in chair with, set up assist. Pt then ambulated back to bed in room with FWW, CGA. Pt transferred into bed with Min A to get legs up into bed, due to fatigue. Pt then completed oral hygiene, placing dentures and grooming while sitting up in bed. Increased time due to soreness and fatigue as presented by pt, multiple rest breaks needed throughout session today. Pt was left sitting up in bed with nursing present, call light and phone within reach, all needs met. Therapy Code Descriptions/Definitions Functional [place] Measure: 0=Not Assessed/NA 4=Minimal Assistance 1=Total Assistance 5=Supervision or Setup 2=Maximal Assistance 6=Modified [place] 3=Moderate Assistance 7=Complete IndependenceSCALE: Activities may be completed with or without assistive devices. 7-Wqhnogfpcf-luwhwhb completes the activity by him/herself with no assistance from a helper. 5-Set-up or Clean-up Assistance-helper sets up or cleans up; patient completes activity. [place] assists only prior to or following the activity. 4-Supervision or Touching Assistance-helper provides verbal cues and/or touching/steadying and/or contact guard assistance as patient completes activity. Assistance may be provided throughout the activity or intermittently. 3-Partial/Moderate Assistance-helper does LESS THAN HALF the effort. [place] lifts, holds or supports trunk or limbs, but provides less than half the effort. 2-Substantial/Maximal Assistance-helper does MORE THAN HALF the effort. [place] lifts or holds trunk or limbs and provides more than half the effort. 7-Owtgndlca-vnsclc does ALL the effort. Patient does none of the effort to co mplete the activity. Or, the assistance of 2 or more helpers is required for the patient to complete the activity. If activity was not attempted, code reason: 7-Patient Refused. 9-Not Applicable-not attempted and the patient did not perform the activity before the current illness, exacerbation or injury. 10-Not Attempted due to Environmental Limitations-(lack of equipment, weather restraints, etc.). 88-Not Attempted due to Medical Conditions or Safety Concerns. Eating (QC): 5 Oral Hygiene (QC): 5 Bathing Location: Perineal Area Shower/Bathe Self (QC): 3 Upper Body Dressing (QC): 5 Lower Body Dressing (QC): 5 On/Off Footwear: 3 Education OT Patient Education: Correct positioning, Energy conservation, Instructions don/doff splint/brace, Progress toward Goal/Update tx plan, Purpose of tx/functional activities, Safety issues Teaching Recipient: Patient Teaching Methods: Discussion Response to Teaching: Verbalize Understanding OT Short Term Goals Short Term Goals Time Frame: Dec 06, 2022 Eatin Oral hygiene: 6 Toileting hygiene: 4 OT Behavior Specialist Goals Behavior Specialist Goals Acute change in mental status: 0 Inattention: 2 Disorganized thinkin Altered level of consciousness: 0 Eating (QC): 6 Oral Hygiene (QC): 6 Toileting Hygiene (QC): 6 (w/ AD) Shower/Bathe Self (QC): 4 Upper Body Dressing (QC): 5 Lower Body Dressing (QC): 5 On/Off Footwear (QC): 5 1=Demonstrate adherence to instructed precautions during ADL tasks. 2=Patient will verbalize/demonstrate understanding of assistive devices/modifications for ADL. 3=Patient will improve strength/tolerance for activity to enable patient to perform ADL's. OT Education/Plan Discharge Recommendations Plan/Recommendations: Continue POC Treatment Plan/Plan of Care Patient would benefit from OT for education, treatment and training to promote independence in ADL's, mobility, safety and/or upper extremity function for ADL's. Plan of Care: ADL Retraining, Cognitive Retraining, Concurrent Therapy, Fu nctional Mobility, Group Exercise/Act as Ind, Orthotic Fitting/Training, UE Funct Exercise/Act, UE Neuromus Re-Ed/Coord Treatment Duration: Jan 05, 2023 Frequency: At least 5 of 7 days/Wk (IRF) Estimated Hrs Per Day: 1.5 hours per day Agreement: Yes Rehab Potential: Fair Time Start Time: 10:00 Stop Time: 11:15 DATE: Dec 11, 2022 Total Time Billed (hr/min): 75 Billed Treatment Time 1 visit ADL 5 (75) Shira Gamino COTA Dec 11, 2022 11:36
[2022-12-11] MEDS: ENOXAPARIN 40 MG/0.4 ML (LOVENOX) SYR SC SCH (17:27)
[2022-12-11 20:56] VITALS: BP 108/69
[2022-12-11] MEDS: ESTRADIOL VAGINAL CREAM 42.5 GM (ESTRACE) VG SCH (21:00)
[2022-12-11] MEDS: GABAPENTIN 300 MG (NEURONTIN) CAP PO SCH (21:05)
[2022-12-11] MEDS: LIDOCAINE PATCH REMOVAL TP SCH (21:05)
[2022-12-11] MEDS: MONTELUKAST 10 MG (SINGULAIR) TAB PO SCH (23:00)
[2022-12-11] MEDS: meTOproloL SUCCINATE 50 MG (TOPROL XL) TAB PO SCH (23:11)
[2022-12-12] MEDS: BACLOFEN 10 MG (LIORESAL) TAB PO SCH ×4 (06:19→18:30)
[2022-12-12] MEDS: GABAPENTIN 100 MG (NEURONTIN) CAP PO SCH ×3 (06:19→17:52)
[2022-12-12] MEDS: MULTIVIT W/MINERALS TAB (THERAGRAN M) PO SCH (06:19)
[2022-12-12 08:00] VITALS: BP 112/58
[2022-12-12] MEDS: ONDANSETRON 4 MG (ZOFRAN) ORAL DISSOLVE TAB PO PRN (08:34)
[2022-12-12] MEDS: FAMOTIDINE 20 MG (PEPCID) TABLET PO SCH (08:35)
[2022-12-12] MEDS: IBUPROFEN 600 MG (MOTRIN) TAB PO PRN (08:35)
[2022-12-12] MEDS: ACETAMINOPHEN 325 MG TABLET PO PRN (08:36)
[2022-12-12] MEDS: PROMETHAZINE INJ 25 MG/ML (PHENERGAN) AMP IVP PRN (08:37)
[2022-12-12] MEDS: DICYCLOMINE 10 MG (BENTYL) CAP PO SCH ×3 (09:00→21:04)
--- NOTE | 2022-12-12 09:24 | Physical Therapy Daily Note ---
PT Daily Note-Current Subjective PT in recliner upon entering and good for therapy. pt stated she was vomiting last night secondary to Med she received. pt stated she still felt nauseous. nursing gave her her morning meds with an IM anti-nausea med. pt was able to preform supine and sitting ther-ex with red thera- band for 3 sets of 20 each with rest in-between. pt did require extra rest secondary to the nauseous feeling to settle. pt was very sleepy at the end of therapy secondary to Nausea med. pt was left in room in recliner with call light and all needs met. Pain Section J - Health Conditions 1. Rarely or not at all 2. Occasionally 3. Frequently 4. Almost constantly 8. Unable to answer Pain Effect on Sleep: 2 Pain Interference with Therapy: 3 Pain Interference w/Day-to-Day: 2 Transfers SCALE: Activities may be completed with or without assistive devices. 3-Gdsbiqpsyf-skjqkin completes the activity by him/herself with no assistance from a helper. 5-Set-up or Clean-up Assistance-helper sets up or cleans up; patient completes activity. [place] assists only prior to or following the activity. 4-Supervision or Touching Assistance-helper provides verbal cues and/or touching/steadying and/or contact guard assistance as patient completes activity. Assistance may be provided throughout the activity or intermittently. 3-Partial/Moderate Assistance-helper does LESS THAN HALF the effort. [place] lifts, holds or supports trunk or limbs, but provides less than half the effort. 2-Substantial/Maximal Assistance-helper does MORE THAN HALF the effort. [place] lifts or holds trunk or limbs and provides more than half the effort. 7-Wkspyelcn-pgoxst does ALL the effort. Patient does none of the effort to complete the activity. Or, the assistance of 2 or more helpers is required for the patient to complete the activity. If activity was not attempted, code reason: 7-Patient Refused. 9-Not Applicable-not attempted and the patient did not perform the activity before the current illness, exacerbation or injury. 10-Not Attempted due to Environmental Limitations-(lack of equipment, weather restraints, etc.). 88-Not Attempted due to Medical Conditions or Safety Concerns. Weight Bearing Right Lower Extremity: Right Full Weight Bearing Left Lower Extremity: Left Full Weight Bearing Exercises Supine Ex: Ankle pumps, Quad Set, Glut sets, Heel Slides, Short Arc Quads, Hip abd/add Seated Therapy Exercises: Biceps, Ankle pumps, Long arc quads, Hip flexion, Kicking activity, Hamstring Curls, Hip abd/add Treatments Pt preformed supine and sitting ther-ex in all planes of motion available with red thera-band for added resistance. pt preformed 3 sets of 20 in sitting as well as in supine. Assessment Current Status: Fair Progress (pt has taken anti-nausea med and inturn was tired during thearpy. ) PT Senior Living Goals Senior Living Goals PT Pattern Vault Clerk Goals Time Frame: Dec 15, 2022 Roll Left & Right (QC): 4 (Pt will be SBA for functional mobility with the FWW to safely d/c home with assistance. ) Sit to Lying (QC): 4 (Pt will be SBA for functional mobility with the FWW to safely d/c home with assistance. ) Lying-Sitting on Side/Bed(QC): 4 (Pt will be SBA for functional mobility with the FWW to safely d/c home with assistance. ) Sit to Stand (QC): 4 (Pt will be SBA for functional mobility with the FWW to safely d/c home with assistance. ) Chair/Pmi-gs-Xrzvs Xfer(QC): 4 (Pt will be SBA for functional mobility with the FWW to safely d/c home with assistance. ) Toilet Transfer (QC): 4 (Pt will be SBA for functional mobility with the FWW to safely d/c home with assistance. ) Car Transfer (QC): 4 (Pt will be SBA for functional mobility with the FWW to safely d/c home with assistance. ) Does the Patient Walk: Yes Walk 10 feet (QC): 4 (Pt will be SBA for functional mobility with the FWW to safely d/c home with assistance. ) Walk 50ft with 2 Turns (QC): 4 (Pt will be SBA for functional mobility with the FWW to safely d/c home with assistance. ) Walk 150 ft (QC): 4 (Pt will be SBA for functional mobility with the FWW to safely d/c home with assistance. ) Walking 10ft on Uneven Surface: 4 (Pt will be SBA for functional mobility with the FWW to safely d/c home with assistance. ) 1 Step (curb) (QC): 9 4 Steps (QC): 9 12 Steps (QC): 9 Picking up an Object (QC): 4 (Pt will be SBA for functional mobility with the FWW to safely d/c home with assistance. ) Does the Pt use WC or Scooter?: Yes Wheel 50 feet with 2 turns (QC: 6 (Ind with w/c mobility ) Type: Manual Wheel 150 feet: 6 (Ind with w/c mobility ) Type: Manual PT Plan Treatment/Plan Treatment Plan: Continue Plan of Care Treatment Plan: Bed Mobility, Concurrent Therapy, Education, Functional Activity [place], Functional Strength, Group Therapy, Gait, Safety, Therapeutic Exercise, Transfers Treatment Duration: Dec 15, 2022 Frequency: At least 5 of 7 days/Wk (IRF) Estimated Hrs Per Day: 1.5 hours per day Patient and/or Family Agrees t: Yes Time Time In: 0800 Time Out: 0915 DATE: Dec 12, 2022 Total Billed Treatment Time: 75 Total Billed Treatment 1 EX x 3 FA x [address] TECH[employer] ARCHITECT Dec 12, 2022 09:24
[2022-12-12] MEDS: DIVALPROEX 250 MG DELAYED RELEASE (DEPAKOTE) TAB PO SCH ×2 (10:44→21:07)
[2022-12-12] MEDS: LEVOMILNACIPRAN HYDROCHLORIDE 80 MG PO SCH (10:47)
[2022-12-12] MEDS: CALCITONIN NASAL 200 INTLU/AC (FORTICAL) 3.7 ML BTL SCH (10:47)
[2022-12-12] MEDS: hydrOXYzine (ATARAX) 10 MG TAB PO PRN (10:49)
[2022-12-12] MEDS ORDERED: SCOPOLAMINE 1.5 MG (TRANSDERM-SCOP) PATCH TD NR (11:00)
[2022-12-12] MEDS ORDERED: PATIENT MAY USE OWN MEDS, ALL MC SCH (11:15)
[2022-12-12] MEDS ORDERED: [UNRECOGNIZED DRUG - REMARK] NS PRN (11:30)
--- NOTE | 2022-12-12 12:06 | Occupational Ther Daily Note ---
OT Current Status-Daily Note Subjective Pt lying in bed upon arrival, nrsing giving meds. Pt alert and cooperative, pt states" very nauseous and doesn't feel like doing much". Pt reluctantly agreed to therapy while sitting up right in bed. ADL-Treatment Pt completed various exercises for hand and finger strengthening required for daily function. Pt completed theraputty functional actiivty to address fine motor coodination, dexterity, while manipulating various sizes object and placing them onto a tray by color, also working on cognitive aspects during session. Multiple recovery breaks needed for pt to relax and "try not to get sick" stated by pt. Pt also completed a reaching across midline and sitting ba supriya activity required for daily function by leaning forward and reach for objects and handing to therapist in various areas. Increased time due to fatigue and "not feeling well". Pt was left in bed with call light and phone within reach, all needs met, sister present in room. Therapy Code Descriptions/Definitions Functional [place] Measure: 0=Not Assessed/NA 4=Minimal Assistance 1=Total Assistance 5=Supervision or Setup 2=Maximal Assistance 6=Modified [place] 3=Moderate Assistance 7=Complete IndependenceSCALE: Activities may be completed with or without assistive devices. 1-Vczulttdlx-vumeidt completes the activity by him/herself with no assistance from a helper. 5-Set-up or Clean-up Assistance-helper sets up or cleans up; patient completes activity. [place] assists only prior to or following the activity. 4-Supervision or Touching Assistance-helper provides verbal cues and/or touching/steadying and/or contact guard assistance as patient completes activity. Assistance may be provided throughout the activity or intermittently. 3-Partial/Moderate Assistance-helper does LESS THAN HALF the effort. [place] lifts, holds or supports trunk or limbs, but provides less than half the effort. 2-Substantial/Maximal Assistance-helper does MORE THAN HALF the effort. [place] lifts or holds trunk or limbs and provides more than half the effort. 1-Bdnatroue-tixlwl does ALL the effort. Patient does none of the effort to complete the activity. Or, the assistance of 2 or more helpers is required for the patient to complete the activity. If activity was not attempted, code reason: 7-Patient Refused. 9-Not Applicable-not attempted and the patient did not perform the activity before the current illness, exacerbation or injury. 10-Not Attempted due to Environmental Limitations-(lack of equipment, weather restraints, etc.). 88-Not Attempted due to Medical Conditions or Safety Concerns. Education OT Patient Education: Correct positioning, Energy conservation, Exercise program, Home exercise program, Progress toward Goal/Update tx plan, Purpose of tx/functional activities, Safety issues Teaching Recipient: Patient Teaching Methods: Demonstration, Discussion Response to Teaching: Verbalize Understanding OT Short Term Goals Short Term Goals Time Frame: Dec 06, 2022 Eatin Oral hygiene: 6 Toileting hygiene: 4 OT Usp Goals Usp Goals Acute change in mental status: 0 Inattention: 2 Disorganized thinkin Altered level of consciousness: 0 Eating (QC): 6 Oral Hygiene (QC): 6 Toileting Hygiene (QC): 6 (w/ AD) Shower/Bathe Self (QC): 4 Upper Body Dressing (QC): 5 Lower Body Dressing (QC): 5 On/Off Footwear (QC): 5 1=Demonstrate adherence to instructed precautions during ADL tasks. 2=Patient will verbalize/demonstrate understanding of assistive devices/modifications for ADL. 3=Patient will improve strength/tolerance for activity to enable patient to perform ADL's. OT Education/Plan Problem List/Assessment Assessment: Decreased Activ Tolerance, Decreased Safety Aware, Decreased UE Strength Discharge Recommendations Plan/Recommendations: Continue POC Therapy Discharge Recommendati: 24 Hour Supervision Treatment Plan/Plan of Care Patient would benefit from OT for education, treatment and training to promote independence in ADL's, mobility, safety and/or upper extremity function for ADL's. Plan of Care: ADL Retraining, Cognitive Retraining, Concurrent Therapy, Functional Mobility, Group Exercise/Act as Ind, Orthotic Fitting/Training, UE Funct Exercise/Act, UE Neuromus Re-Ed/Coord Treatment Duration: Jan 05, 2023 Frequency: At least 5 of 7 days/Wk (IRF) Estimated Hrs Per Day: 1.5 hours per day Agreement: Yes Rehab Potential: Fair Time Start Time: 10:45 Stop Time: 12:00 DATE: Dec 12, 2022 Total Time Billed (hr/min): 75 Billed Treatment Time 1 visit EX 2 (30) FA 3 (45) Shira Gamino COTA Dec 12, 2022 12:06
--- NOTE | 2022-12-12 12:37 | Speech Therapy Daily Note ---
Speech Daily Progress Note Subjective Date Seen by Provider: Dec 12, 2022 Time Seen by Provider: 09:15 Pt sitting up in recliner. Pt pleasant and cooperative throughout session. Pt states she plans to have her caregiver manage her medications and have her son or sister manage her finances. Pain Numeric Pain Scale: 7 Location Body Site: Back Comment: declines asking nurse about meds Objective Pt participates in conversation throughout session. Pt has difficulty maintaining conversation topic and frequently changes the topic. Pt is able to recall current events. Pt completes word list retention (given 4 words, pt answers a question regarding attributes). Pt performs with 60% accuracy with min verbal cues. Pt is able to immediately recall words with 88% accuracy independently. Assessment Assessment Current Status: Fair Progress Treatment Plan Continue Plan of Care Speech Short Term Goals Short Term Goals Short Term Goals 1. The patient will demonstrate memory exercises with 80% accuracy and mild clinician verbal cueing. 2. The patient will demonstrate safe swallowing strategies with 90% accuracy and mild clinician verbal cueing. Time Frame-STG: One Week. Speech Dx Board Operator Goals Alf Goals 1. The patient will demonstrate improved cognitive linguistic communication for safe discharge to the least restrictive environment. 2. The patient will tolerate the least restrictive diet consistency without s/s of suspected aspiration. Time Frame: Two Weeks. Speech-Plan Patient/Family Goals Patient/Family Goals: Pt states her goal is to return home. Treatment Plan Speech Therapy Treatment Plan: Continue Plan of Care Treatment Duration: Dec 16, 2022 Frequency: Modified Program (IRF) (Four to five times per week.) Estimated Hrs Per Day: .5 hour per day Rehab Potential: Fair Pt/Family Agrees to Plan: Yes Safety Risks/Education Teaching Recipient: Patient Teaching Methods: Discussion Response to Teaching: Verbalize Understanding, Reinforcement Needed Education Topics Provided: Pt educated on purpose of therapy tasks. Pt was receptive and verbalized understanding but will likely require reinforcement. Discharge Recommendations Post Acute ST Time Speech Therapy Time In: 09:15 Speech Therapy Time Out: 09:45 DATE: Dec 12, 2022 Total Billed Time: 30 Billed Treatment Time S/L Ting Lujan Speech Therapy Dec 12, 2022 12:36
--- NOTE | 2022-12-12 12:56 | PM&R Progress Note ---
Subjective HPI/CC On Admission Date Seen by Provider: Dec 12, 2022 Time Seen by Provider: 10:00 Subjective/Events-last exam 12/12/2022: Patient doing a lot better Had emesis after the sodium tablets so we will discontinue that and place scopolamine patch on Multiple somatic complaints 12/11/2022: Patient doing a lot better No pain is reported other than the back Participation is good Slow recovery 12/10/2022: Patient doing well Changed all of her medications to exactly how she takes at home but that varies by the day Pain is controlled Moving around a lot better Still remains fall risk 12/09/2022: Much improved Pain controlled UA normal No falls 12/08/2022: Patient doing a lot better Move around better Fentanyl patch off not as drowsy Changed all medications to which she was taking at home 12/07/2022: Patient doing well Less sedation but will pull off fentanyl patch Able to participate in therapy Checked meds and labs 12/06/2022: Patient doing about the same Was able to work with therapy but in between time she is very confused Pain is somewhat controlled Patient has such severe chronic pain and fibromyalgia and difficulty coping with that pain she will need slow recovery time Review of Systems General: No Chills, No Night Sweats; Fatigue, Malaise; No Appetite, No Other Gastrointestinal: Nausea, Vomiting Musculoskeletal: back pain Objective Exam Vital Signs Vital Signs Date Time Temp Pulse Resp B/P (MAP) Pulse Ox O2 Delivery O2 Flow Rate FiO2 12/12/22 19:28 37.0 96 20 124/56 (78) 96 Room Air 12/09/22 07:58 2.00 2.00 Capillary Refill : General Appearance: No Apparent Distress, WD/WN, Chronically ill, Thin, Other (Frail and pale) HEENT: PERRL/EOMI, Normal ENT Inspection, Pharynx Normal Neck: Full Range of Motion, Normal Inspection, Non Tender, Supple, Carotid Bruit Respiratory: Chest Non Tender, Lungs Clear, Normal Breath Sounds, No Accessory Muscle Use, No Respiratory Distress Cardiovascular: Regular Rate, Rhythm, No Edema, No Gallop, No JVD, No Murmur, Normal Peripheral Pulses Gastrointestinal: Normal Bowel Sounds, No Organomegaly, No Pulsatile Mass, Non Tender, Soft Back: CVA Tenderness (L), CVA Tenderness (R), Decreased Range of Motion, Muscle Spasm, Vertebral Tenderness Extremity: Normal Capillary Refill, Normal Inspection, Normal Range of Motion, Non Tender, No Calf Tenderness, No Pedal Edema Neurologic/Psychiatric: Alert, Oriented x3, Normal Mood/Affect, shop 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 FIM Transfers Therapy Code Descriptions/Definitions Functional [place] Measure: 0=Not Assessed/NA 4=Minimal Assistance 1=Total Assistance 5=Supervision or Setup 2=Maximal Assistance 6=Modified [place] 3=Moderate Assistance 7=Complete IndependenceSCALE: Activities may be completed with or without assistive devices. 5-Ezgygsouyl-usfahwd completes the activity by him/herself with no assistance from a helper. 5-Set-up or Clean-up Assistance-helper sets up or cleans up; patient completes activity. [place] assists only prior to or following the activity. 4-Supervision or Touching Assistance-helper provides verbal cues and/or touching/steadying and/or contact guard assistance as patient completes activity. Assistance may be provided throughout the activity or intermittently. 3-Partial/Moderate Assistance-helper does LESS THAN HALF the effort. [place] lifts, holds or supports trunk or limbs, but provides less than half the effort. 2-Substantial/Maximal Assistance-helper does MORE THAN HALF the effort. [place] lifts or holds trunk or limbs and provides more than half the effort. 2-Adcwhjkyr-ynxazs does ALL the effort. Patient does none of the effort to complete the activity. Or, the assistance of 2 or more helpers is required for the patient to complete the activity. If activity was not attempted, code reason: 7-Patient Refused. 9-Not Applicable-not attempted and the patient did not perform the activity before the current illness, exacerbation or injury. 10-Not Attempted due to Environmental Limitations-(lack of equipment, weather restraints, etc.). 88-Not Attempted due to Medical Conditions or Safety Concerns. Roll Left to Right (QC): 6 Sit to Lying (QC): 6 Sit to Stand (QC): 6 Chair/Tmm-xh-Vjhvc Xfer(QC): 5 Car Transfer (QC): 4 Gait Training Does the Patient Walk?: Yes Walk 10 feet (QC): 4 Walk 50 ft with 2 Turns(QC): 4 Walk 150 ft (QC): 4 Walking 10ft/uneven surface-QC: 88 Gait Assistive Device: FWW Wheelchair Training Does the Pt Use a Wheelchair?: Yes Wheel 50 ft with 2 turns (QC): 9 Wheel 150 ft (QC): 9 Type of Wheelchair: Manual Stair Training 1 Step (curb) (QC): 9 4 Steps (QC): 4 12 Steps (QC): 9 Balance Picking up an Object (QC): 3 (Min A) ADL-Treatment Eating (QC): 5 Oral Hygiene (QC): 5 Bathing Location: Perineal Area Shower/Bathe Self (QC): 3 Upper Body Dressing (QC): 5 Lower Body Dressing (QC): 5 On/Off Footwear (QC): 3 Toileting Hygiene (QC): 1 Assessment/Plan Assessment and Plan Assess & Plan/Chief Complaint Assessment: Compression fractures T11-L2 Fall Indwelling catheter Fibromyalgia Bipolar disorder UTIs no evidence of acute UTI here UA sterile in and out cath is normal Acute encephalopathy due to medications Tremors Plan: Supportive care Pain control [place] catheter to remain for 1 more day Home meds 12/06/2022: Updated sister at the bedside Monitor confusion 12/07/2022: Supportive care Monitor closely 12/08/2022: Improved pain DC fentanyl patch 12/09/2022: UA normal 12/10/2022: Fall risk remains Aggressive rehab 12/11/2022: Supportive care Monitor closely 12/12/2022: Supportive care DC salt tablets (1) Compression fracture of L2 Status: Acute (2) Lumbar radiculopathy Status: Acute (3) Debility Status: Acute GABRIEL VIRGEN DO Dec 12, 2022 12:56
[2022-12-12] MEDS: OMEGA 3 (FISH OIL) 1000 MG CAP PO SCH (13:45)
[2022-12-12] MEDS: DOCUSATE SODIUM 100 MG (COLACE) CAP PO SCH ×2 (13:45→21:10)
[2022-12-12] MEDS: LACTOBACILLUS ACIDOPHILUS (PROBIOTIC) CAPSULE PO SCH (13:45)
[2022-12-12] MEDS: CRANBERRY EXTRACT 500 MG PO SCH (13:45)
[2022-12-12] MEDS: NICOTINE PATCH REMOVAL TP SCH (13:45)
[2022-12-12] MEDS: CALCIUM CARBONATE 600 MG (CALCARB) TAB PO SCH (13:45)
[2022-12-12] MEDS: BIOTIN 10000 MCG PO SCH (13:46)
[2022-12-12] MEDS: NICOTINE 21 MG (NICODERM) PATCH TD SCH (15:53)
[2022-12-12] MEDS: LIDOCAINE 4% (SALONPAS) PATCH TOP SCH (15:55)
[2022-12-12] MEDS: DICLOFENAC 1% GEL 100 GM (VOLTAREN) TUBE TOP SCH ×2 (15:56→17:29)
[2022-12-12] MEDS: VITAMIN D3 25 MCG (1,000 UNITS) TABLET PO SCH (16:02)
[2022-12-12] MEDS: buPROPion SR 150 MG (WELLBUTRIN SR) TAB PO SCH (16:02)
[2022-12-12] MEDS: PANTOPRAZOLE 40 MG (PROTONIX) TAB PO SCH (16:04)
[2022-12-12] MEDS: SENNA W/DOCUSATE (SENOKOT S) TABLET PO SCH ×2 (16:04→21:10)
[2022-12-12] MEDS: ENOXAPARIN 40 MG/0.4 ML (LOVENOX) SYR SC SCH (17:53)
[2022-12-12 19:28] VITALS: BP 124/56
[2022-12-12] MEDS: MONTELUKAST 10 MG (SINGULAIR) TAB PO SCH (21:08)
[2022-12-12] MEDS: GABAPENTIN 300 MG (NEURONTIN) CAP PO SCH (21:08)
[2022-12-12] MEDS: LIDOCAINE PATCH REMOVAL TP SCH (21:09)
[2022-12-12] MEDS: meTOproloL SUCCINATE 50 MG (TOPROL XL) TAB PO SCH (21:09)
--- NOTE | 2022-12-13 06:01 | PM&R Progress Note ---
Subjective HPI/CC On Admission Date Seen by Provider: Dec 13, 2022 Time Seen by Provider: 12:30 Subjective/Events-last exam 12/13/2022: Patient doing a lot better Walking better Leaned over position when she walks but she remains a fall risk regardless Feels much better No nausea Scopolamine patch improved 12/12/2022: Patient doing a lot better Had emesis after the sodium tablets so we will discontinue that and place scopolamine patch on Multiple somatic complaints 12/11/2022: Patient doing a lot better No pain is reported other than the back Participation is good Slow recovery 12/10/2022: Patient doing well Changed all of her medications to exactly how she takes at home but that varies by the day Pain is controlled Moving around a lot better Still remains fall risk 12/09/2022: Much improved Pain controlled UA normal No falls 12/08/2022: Patient doing a lot better Move around better Fentanyl patch off not as drowsy Changed all medications to which she was taking at home 12/07/2022: Patient doing well Less sedation but will pull off fentanyl patch Able to participate in therapy Checked meds and labs 12/06/2022: Patient doing about the same Was able to work with therapy but in between time she is very confused Pain is somewhat controlled Patient has such severe chronic pain and fibromyalgia and difficulty coping with that pain she will need slow recovery time Review of Systems General: Fatigue, Malaise Objective Exam Vital Signs Vital Signs Date Time Temp Pulse Resp B/P (MAP) Pulse Ox O2 Delivery O2 Flow Rate FiO2 12/13/22 19:56 36.7 85 18 112/59 (76) 92 Room Air 12/12/22 21:00 2.00 Capillary Refill : General Appearance: No Apparent Distress, WD/WN, Chronically ill, Thin, Other (Frail and pale) HEENT: PERRL/EOMI, Normal ENT Inspection, Pharynx Normal Neck: Full Range of Motion, Normal Inspection, Non Tender, Supple, Carotid Bruit Respiratory: Chest Non Tender, Lungs Clear, Normal Breath Sounds, No Accessory Muscle Use, No Respiratory Distress Cardiovascular: Regular Rate, Rhythm, No Edema, No Gallop, No JVD, No Murmur, Normal Peripheral Pulses Gastrointestinal: Normal Bowel Sounds, No Organomegaly, No Pulsatile Mass, Non Tender, Soft Back: CVA Tenderness (L), CVA Tenderness (R), Decreased Range of Motion, Muscle Spasm, Vertebral Tenderness Extremity: Normal Capillary Refill, Normal Inspection, Normal Range of Motion, Non Tender, No Calf Tenderness, No Pedal Edema Neurologic/Psychiatric: Alert, Oriented x3, Normal Mood/Affect, 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 FIM Transfers Therapy Code Descriptions/Definitions Functional [place] Measure: 0=Not Assessed/NA 4=Minimal Assistance 1=Total Assistance 5=Supervision or Setup 2=Maximal Assistance 6=Modified [place] 3=Moderate Assistance 7=Complete IndependenceSCALE: Activities may be completed with or without assistive devices. 2-Xguidqpocq-opoayqz completes the activity by him/herself with no assistance from a helper. 5-Set-up or Clean-up Assistance-helper sets up or cleans up; patient completes activity. [place] assists only prior to or following the activity. 4-Supervision or Touching Assistance-helper provides verbal cues and/or touching/steadying and/or contact guard assistance as patient completes activity. Assistance may be provided throughout the activity or intermittently. 3-Partial/Moderate Assistance-helper does LESS THAN HALF the effort. [place] lifts, holds or supports trunk or limbs, but provides less than half the effort. 2-Substantial/Maximal Assistance-helper does MORE THAN HALF the effort. [place] lifts or holds trunk or limbs and provides more than half the effort. 9-Rxgngioyd-oolepy does ALL the effort. Patient does none of the effort to complete the activity. Or, the assistance of 2 or more helpers is required for the patient to complete the activity. If activity was not attempted, code reason: 7-Patient Refused. 9-Not Applicable-not attempted and the patient did not perform the activity before the current illness, exacerbation or injury. 10-Not Attempted due to Environmental Limitations-(lack of equipment, weather restraints, etc.). 88-Not Attempted due to Medical Conditions or Safety Concerns. Roll Left to Right (QC): 6 Sit to Lying (QC): 6 Sit to Stand (QC): 6 Chair/Ctn-bv-Zdezd Xfer(QC): 5 Car Transfer (QC): 4 Gait Training Does the Patient Walk?: Yes Walk 10 feet (QC): 4 Walk 50 ft with 2 Turns(QC): 4 Walk 150 ft (QC): 4 Walking 10ft/uneven surface-QC: 88 Gait Assistive Device: FWW Wheelchair Training Does the Pt Use a Wheelchair?: Yes Wheel 50 ft with 2 turns (QC): 9 Wheel 150 ft (QC): 9 Type of Wheelchair: Manual Stair Training 1 Step (curb) (QC): 9 4 Steps (QC): 4 12 Steps (QC): 9 Balance Picking up an Object (QC): 3 (Min A) ADL-Treatment Eating (QC): 5 Oral Hygiene (QC): 5 Bathing Location: Perineal Area Shower/Bathe Self (QC): 3 Upper Body Dressing (QC): 5 Lower Body Dressing (QC): 5 On/Off Footwear (QC): 3 Toileting Hygiene (QC): 1 Assessment/Plan Assessment and Plan Assess & Plan/Chief Complaint Assessment: Compression fractures T11-L2 Fall Indwelling catheter Fibromyalgia Bipolar disorder UTIs no evidence of acute UTI here UA sterile in and out cath is normal Acute encephalopathy due to medications Tremors 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 Plan: Supportive care Pain control Lynch catheter to remain for 1 more day Home meds 12/06/2022: Updated sister at the bedside Monitor confusion 12/07/2022: Supportive care Monitor closely 12/08/2022: Improved pain DC fentanyl patch 12/09/2022: UA normal 12/10/2022: Fall risk remains Aggressive rehab 12/11/2022: Supportive care Monitor closely 12/12/2022: Supportive care DC salt tablets 12/13/2022: Continue limiting fluid (1) Compression fracture of L2 Status: Acute (2) Lumbar radiculopathy Status: Acute (3) Debility Status: Acute GABRIEL VIRGEN DO Dec 13, 2022 06:01
[2022-12-13] MEDS: GABAPENTIN 100 MG (NEURONTIN) CAP PO SCH ×3 (06:03→17:50)
[2022-12-13] MEDS: BACLOFEN 10 MG (LIORESAL) TAB PO SCH ×4 (06:04→21:54)
[2022-12-13] MEDS: MULTIVIT W/MINERALS TAB (THERAGRAN M) PO SCH (06:05)
[2022-12-13 07:21] LABS: CALCIUM 8.7 MG/DL (8.5-10.1)
[2022-12-13 07:25] LABS: CREATININE SERUM 0.86 MG/DL (0.60-1.30)
[2022-12-13 08:00] VITALS: BP 117/64
[2022-12-13] MEDS: IBUPROFEN 600 MG (MOTRIN) TAB PO PRN ×2 (08:32→15:03)
[2022-12-13] MEDS: ACETAMINOPHEN 325 MG TABLET PO PRN ×2 (08:32→15:04)
[2022-12-13] MEDS: PANTOPRAZOLE 40 MG (PROTONIX) TAB PO SCH (08:37)
[2022-12-13] MEDS: DIVALPROEX 250 MG DELAYED RELEASE (DEPAKOTE) TAB PO SCH ×2 (08:38→21:54)
[2022-12-13] MEDS: DOCUSATE SODIUM 100 MG (COLACE) CAP PO SCH ×2 (08:38→22:10)
[2022-12-13] MEDS: LACTOBACILLUS ACIDOPHILUS (PROBIOTIC) CAPSULE PO SCH (08:39)
[2022-12-13] MEDS: FAMOTIDINE 20 MG (PEPCID) TABLET PO SCH (08:39)
[2022-12-13] MEDS: buPROPion SR 150 MG (WELLBUTRIN SR) TAB PO SCH (08:39)
[2022-12-13] MEDS: DICYCLOMINE 10 MG (BENTYL) CAP PO SCH ×3 (08:39→21:55)
[2022-12-13] MEDS: LEVOMILNACIPRAN HYDROCHLORIDE 80 MG PO SCH (08:40)
[2022-12-13] MEDS: NICOTINE 21 MG (NICODERM) PATCH TD SCH (08:40)
[2022-12-13] MEDS: LIDOCAINE 4% (SALONPAS) PATCH TOP SCH (08:40)
[2022-12-13] MEDS: NICOTINE PATCH REMOVAL TP SCH (08:41)
[2022-12-13] MEDS: DICLOFENAC 1% GEL 100 GM (VOLTAREN) TUBE TOP SCH ×4 (08:41→21:54)
[2022-12-13] MEDS: BIOTIN 10000 MCG PO SCH (08:46)
[2022-12-13] MEDS: VITAMIN D3 25 MCG (1,000 UNITS) TABLET PO SCH (08:46)
[2022-12-13] MEDS: OMEGA 3 (FISH OIL) 1000 MG CAP PO SCH (08:46)
[2022-12-13] MEDS: CRANBERRY EXTRACT 500 MG PO SCH (08:46)
[2022-12-13] MEDS: CALCIUM CARBONATE 600 MG (CALCARB) TAB PO SCH (08:46)
[2022-12-13] MEDS: SENNA W/DOCUSATE (SENOKOT S) TABLET PO SCH ×2 (08:46→22:10)
[2022-12-13] MEDS: hydrOXYzine (ATARAX) 10 MG TAB PO PRN (08:57)
[2022-12-13] MEDS: CALCITONIN NASAL 200 INTLU/AC (FORTICAL) 3.7 ML BTL SCH (08:58)
--- NOTE | 2022-12-13 09:14 | Occupational Ther Daily Note ---
OT Current Status-Daily Note Subjective Pt was sitting up in chair, in room upon arrival. Pt agrees to OT, requests shower. Alert and cooperative. Pt mentioned some pain, but couldn't rate it, and very sore while moving during therapy. ADL-Treatment Pt doffed upper and lower body while seated in chair in room. Pt donned back br keith with set up assist. Pt ambulated with FWW, SBA, to bathroom and transferred to shower bench, pt doffed back brace with no assistance. Pt showered and bathed self with no assistance required. Pt transferred out of shower and to a wheelchair in bathroom to get dressed. Pt donned clothing, and socks with SBA for safety, and set up assist. Pt ambulated with FWW to chair in room with CGA. Increased time due to pt being sore. Pt very fatigued after completing shower today. Pt was left in room, telesitter and safety measures in place, pt was left with nursing in room giving meds, call light and phone within reach, all needs met. Therapy Code Descriptions/Definitions Functional [place] Measure: 0=Not Assessed/NA 4=Minimal Assistance 1=Total Assistance 5=Supervision or Setup 2=Maximal Assistance 6=Modified [place] 3=Moderate Assistance 7=Complete IndependenceSCALE: Activities may be completed with or without assistive devices. 0-Baouulvwpj-czesetd completes the activity by him/herself with no assistance from a helper. 5-Set-up or Clean-up Assistance-helper sets up or cleans up; patient completes activity. [place] assists only prior to or following the activity. 4-Supervision or Touching Assistance-helper provides verbal cues and/or touching/steadying and/or contact guard assistance as patient completes activity. Assistance may be provided throughout the activity or intermittently. 3-Partial/Moderate Assistance-helper does LESS THAN HALF the effort. [place] lifts, holds or supports trunk or limbs, but provides less than half the effort. 2-Substantial/Maximal Assistance-helper does MORE THAN HALF the effort. [place] lifts or holds trunk or limbs and provides more than half the effort. 7-Diackjybo-evqglz does ALL the effort. Patient does none of the effort to complete the activity. Or, the assistance of 2 or more helpers is required for the patient to complete the activity. If activity was not attempted, code reason: 7-Patient Refused. 9-Not Applicable-not attempted and the patient did not perform the activity before the current illness, exacerbation or injury. 10-Not Attempted due to Environmental Limitations-(lack of equipment, weather restraints, etc.). 88-Not Attempted due to Medical Conditions or Safety Concerns. Eating (QC): 6 Oral Hygiene (QC): 5 (seated) Shower/Bathe Self (QC): 5 Upper Body Dressing (QC): 5 Lower Body Dressing (QC): 5 On/Off Footwear: 5 Toileting Hygiene (QC): 4 Toilet Transfer (QC): 4 Education OT Patient Education: Correct positioning, Energy conservation, Progress toward Goal/Update tx plan, Purpose of tx/functional activities, Safety issues Teaching Recipient: Patient Teaching Methods: Discussion Response to Teaching: Verbalize Understanding OT Short Term Goals Short Term Goals Time Frame: Dec 06, 2022 Eatin Oral hygiene: 6 Toileting hygiene: 4 OT Mcfp Goals Mcfp Goals Acute change in mental status: 0 Inattention: 2 Disorganized thinkin Altered level of consciousness: 0 Eating (QC): 6 Oral Hygiene (QC): 6 Toileting Hygiene (QC): 6 (w/ AD) Shower/Bathe Self (QC): 4 Upper Body Dressing (QC): 5 Lower Body Dressing (QC): 5 On/Off Footwear (QC): 5 1=Demonstrate adherence to instructed precautions during ADL tasks. 2=Patient will verbalize/demonstrate understanding of assistive devices/modifications for ADL. 3=Patient will improve strength/tolerance for activity to enable patient to perform ADL's. OT Education/Plan Discharge Recommendations Plan/Recommendations: Continue POC Treatment Plan/Plan of Care Patient would benefit from OT for education, treatment and training to promote independence in ADL's, mobility, safety and/or upper extremity function for ADL's. Plan of Care: ADL Retraining, Cognitive Retraining, Concurrent Therapy, Funct ional Mobility, Group Exercise/Act as Ind, Orthotic Fitting/Training, UE Funct Exercise/Act, UE Neuromus Re-Ed/Coord Treatment Duration: Jan 05, 2023 Frequency: At least 5 of 7 days/Wk (IRF) Estimated Hrs Per Day: 1.5 hours per day Agreement: Yes Rehab Potential: Fair Time Start Time: 07:55 Stop Time: 09:05 DATE: Dec 13, 2022 Total Time Billed (hr/min): 75 Billed Treatment Time 1 visit ADL 5 ( 75min) Shira Gamino COTA Dec 13, 2022 09:14
--- NOTE | 2022-12-13 11:24 | Speech Therapy Daily Note ---
Speech Daily Progress Note Subjective Date Seen by Provider: Dec 13, 2022 Time Seen by Provider: 09:30 Nurse helping pt get situated in bed. Pt is concerned about her behavioral health therapist calling and requires encouragement to participate in therapy. Pt pleasant and cooperative throughout therapy session. Pain Numeric Pain Scale: 7 Location: Right Comment: R side, Back of neck Objective Pt's conversation tracking appears improved this date. Pt is able to pick back up a conversation after being interrupted. Dietary stopped by to get her lunch order. Pt asked if there was any rice options today, when dietary told her yes and asked if she would like rice for lunch, pt then states she doesnt like rice. Pt repeats a lot of information to [employer] from yesterday. Pt does well with recalling schedules to help plan for her discharge from IRU. Pt is able to recall dates, times, and individuals. Pt completes a check writing task. Pt fills out two checks with 80% accuracy. Pt writes the obie incorrectly on one check (what the check is for is stated in the scenario on the page). Pt also begins writing the incorrect amount on the other check but is able to self correct. Assessment Assessment Current Status: Fair Progress Treatment Plan Continue Plan of Care Speech Short Term Goals Short Term Goals Short Term Goals 1. The patient will demonstrate memory exercises with 80% accuracy and mild clinician verbal cueing. 2. The patient will demonstrate safe swallowing strategies with 90% accuracy and mild clinician verbal cueing. Time Frame-STG: One Week. Speech Fdc Goals Fdc Goals 1. The patient will demonstrate improved cognitive linguistic communication for safe discharge to the least restrictive environment. 2. The patient will tolerate the least restrictive diet consistency without s/s of suspected aspiration. Time Frame: Two Weeks. Speech-Plan Patient/Family Goals Patient/Family Goals: Pt states her goal is to return home with 24/7 care. Treatment Plan Speech Therapy Treatment Plan: Continue Plan of Care Treatment Duration: Dec 16, 2022 Frequency: Modified Program (IRF) (Four to five times per week.) Estimated Hrs Per Day: .5 hour per day Rehab Potential: Fair Safety Risks/Education Teaching Recipient: Patient Teaching Methods: Discussion Response to Teaching: Verbalize Understanding Education Topics Provided: Pt educated on purpose of therapy tasks and continued plan of care. Pt receptive and verbalized understanding. Time Speech Therapy Time In: 09:30 Speech Therapy Time Out: 10:00 DATE: Dec 13, 2022 Total Billed Time: 30 Billed Treatment Time S/L Ting Lujan Speech Therapy Dec 13, 2022 11:24
--- NOTE | 2022-12-13 15:21 | Physical Therapy Daily Note ---
PT Daily Note-Current Subjective Pt in room in recliner upon arrival and willing for therapy. Pt reports feeling Very tired this afternoon. pt has no CO pain. pt was left in room on the toilet with call light and nurses aid notified. Pain Section J - Health Conditions 1. Rarely or not at all 2. Occasionally 3. Frequently 4. Almost constantly 8. Unable to answer Pain Effect on Sleep: 2 Pain Interference with Therapy: 3 Pain Interference w/Day-to-Day: 2 Mental Status Patient Orientation: Person, Place, Time, Situation Transfers SCALE: Activities may be completed with or without assistive devices. 6-Rzyjjnnvca-pdjxgbw completes the activity by him/herself with no assistance from a helper. 5-Set-up or Clean-up Assistance-helper sets up or cleans up; patient completes activity. [place] assists only prior to or following the activity. 4-Supervision or Touching Assistance-helper provides verbal cues and/or touching/steadying and/or contact guard assistance as patient completes activity. Assistance may be provided throughout the activity or intermittently. 3-Partial/Moderate Assistance-helper does LESS THAN HALF the effort. [place] lifts, holds or supports trunk or limbs, but provides less than half the effort. 2-Substantial/Maximal Assistance-helper does MORE THAN HALF the effort. [place] lifts or holds trunk or limbs and provides more than half the effort. 4-Dadsheuwz-mnywkd does ALL the effort. Patient does none of the effort to complete the activity. Or, the assistance of 2 or more helpers is required for the patient to complete the activity. If activity was not attempted, code reason: 7-Patient Refused. 9-Not Applicable-not attempted and the patient did not perform the activity before the current illness, exacerbation or injury. 10-Not Attempted due to Environmental Limitations-(lack of equipment, weather restraints, etc.). 88-Not Attempted due to Medical Conditions or Safety Concerns. Weight Bearing Right Lower Extremity: Right Full Weight Bearing Left Lower Extremity: Left Full Weight Bearing Exercises NuStep Minutes: 10 NuStep Workload: 1 Treatments pt is able to ambulate 55 ft with therapy gym with RW and CGA then required rest due to fatigue. Pt is able to preform Nu-step with feet only on level 1 for 2:30 mins at a time with rest after for a total of 10 mins. pt is able to ambulate the 55ft with RW and CGA back to her room and preform toilet transfer with SBA this day. Assessment Current Status: Fair Progress PT Group Home Goals Group Home Goals PT Crane Hoist Or Lift Operator Goals Time Frame: Dec 15, 2022 Roll Left & Right (QC): 4 (Pt will be SBA for functional mobility with the FWW to safely d/c home with assistance. ) Sit to Lying (QC): 4 (Pt will be SBA for functional mobility with the FWW to safely d/c home with assistance. ) Lying-Sitting on Side/Bed(QC): 4 (Pt will be SBA for functional mobility with the FWW to safely d/c home with assistance. ) Sit to Stand (QC): 4 (Pt will be SBA for functional mobility with the FWW to safely d/c home with assistance. ) Chair/Puz-jq-Durdx Xfer(QC): 4 (Pt will be SBA for functional mobility with the FWW to safely d/c home with assistance. ) Toilet Transfer (QC): 4 (Pt will be SBA for functional mobility with the FWW to safely d/c home with assistance. ) Car Transfer (QC): 4 (Pt will be SBA for functional mobility with the FWW to safely d/c home with assistance. ) Does the Patient Walk: Yes Walk 10 feet (QC): 4 (Pt will be SBA for functional mobility with the FWW to safely d/c home with assistance. ) Walk 50ft with 2 Turns (QC): 4 (Pt will be SBA for functional mobility with the FWW to safely d/c home with assistance. ) Walk 150 ft (QC): 4 (Pt will be SBA for functional mobility with the FWW to safely d/c home with assistance. ) Walking 10ft on Uneven Surface: 4 (Pt will be SBA for functional mobility with the FWW to safely d/c home with assistance. ) 1 Step (curb) (QC): 9 4 Steps (QC): 9 12 Steps (QC): 9 Picking up an Object (QC): 4 (Pt will be SBA for functional mobility with the FWW to safely d/c home with assistance. ) Does the Pt use WC or Scooter?: Yes Wheel 50 feet with 2 turns (QC: 6 (Ind with w/c mobility ) Type: Manual Wheel 150 feet: 6 (Ind with w/c mobility ) Type: Manual PT Plan Treatment/Plan Treatment Plan: Continue Plan of Care Treatment Plan: Bed Mobility, Concurrent Therapy, Education, Functional Activity [place], Functional Strength, Group Therapy, Gait, Safety, Therapeutic Exercise, Transfers Treatment Duration: Dec 15, 2022 Frequency: At least 5 of 7 days/Wk (IRF) Estimated Hrs Per Day: 1.5 hours per day Patient and/or Family Agrees t: Yes Time Time In: 1245 Time Out: 1400 DATE: Dec 13, 2022 Total Billed Treatment Time: 75 Total Billed Treatment 1 ex x 2 GT x [address] [employer] ARCHITECT Dec 13, 2022 15:21
[2022-12-13] MEDS: ENOXAPARIN 40 MG/0.4 ML (LOVENOX) SYR SC SCH (17:51)
[2022-12-13 19:39] VITALS: BP_SYST 106; BP_SYST 112; BP_DIAS 54; BP_DIAS 59
[2022-12-13 19:56] VITALS: BP 112/59
[2022-12-13] MEDS: meTOproloL SUCCINATE 50 MG (TOPROL XL) TAB PO SCH (21:54)
[2022-12-13] MEDS: MONTELUKAST 10 MG (SINGULAIR) TAB PO SCH (21:54)
[2022-12-13] MEDS: polyethylene glycoL POWDER 17 GM (MIRALAX) PACK PO PRN (21:54)
[2022-12-13] MEDS: GABAPENTIN 300 MG (NEURONTIN) CAP PO SCH (21:55)
[2022-12-13] MEDS: ESTRADIOL VAGINAL CREAM 42.5 GM (ESTRACE) VG SCH (21:57)
[2022-12-13] MEDS: LIDOCAINE PATCH REMOVAL TP SCH (21:57)
[2022-12-14] MEDS: GABAPENTIN 100 MG (NEURONTIN) CAP PO SCH ×4 (00:13→18:19)
--- NOTE | 2022-12-14 06:15 | PM&R Progress Note ---
Subjective HPI/CC On Admission Date Seen by Provider: Dec 14, 2022 Time Seen by Provider: 12:00 Subjective/Events-last exam 12/14/2022: Pain is improved Supportive care we will continue Wheelchair mobility now that she has doing wheelchair Patient improved 12/13/2022: Patient doing a lot better Walking better Leaned over position when she walks but she remains a fall risk regardless Feels much better No nausea Scopolamine patch improved 12/12/2022: Patient doing a lot better Had emesis after the sodium tablets so we will discontinue that and place scopolamine patch on Multiple somatic complaints 12/11/2022: Patient doing a lot better No pain is reported other than the back Participation is good Slow recovery 12/10/2022: Patient doing well Changed all of her medications to exactly how she takes at home but that varies by the day Pain is controlled Moving around a lot better Still remains fall risk 12/09/2022: Much improved Pain controlled UA normal No falls 12/08/2022: Patient doing a lot better Move around better Fentanyl patch off not as drowsy Changed all medications to which she was taking at home 12/07/2022: Patient doing well Less sedation but will pull off fentanyl patch Able to participate in therapy Checked meds and labs 12/06/2022: Patient doing about the same Was able to work with therapy but in between time she is very confused Pain is somewhat controlled Patient has such severe chronic pain and fibromyalgia and difficulty coping with that pain she will need slow recovery time Review of Systems General: Fatigue, Malaise Objective Exam Vital Signs Vital Signs Date Time Temp Pulse Resp B/P (MAP) Pulse Ox O2 Delivery O2 Flow Rate FiO2 12/14/22 20:04 36.0 76 16 125/73 (90) 98 Room Air 12/12/22 21:00 2.00 Capillary Refill : General Appearance: No Apparent Distress, WD/WN, Chronically ill, Thin, Other (Frail and pale) HEENT: PERRL/EOMI, Normal ENT Inspection, Pharynx Normal Neck: Full Range of Motion, Normal Inspection, Non Tender, Supple, Carotid Bruit Respiratory: Chest Non Tender, Lungs Clear, Normal Breath Sounds, No Accessory Muscle Use, No Respiratory Distress Cardiovascular: Regular Rate, Rhythm, No Edema, No Gallop, No JVD, No Murmur, Normal Peripheral Pulses Gastrointestinal: Normal Bowel Sounds, No Organomegaly, No Pulsatile Mass, Non Tender, Soft Back: CVA Tenderness (L), CVA Tenderness (R), Decreased Range of Motion, Muscle Spasm, Vertebral Tenderness Extremity: Normal Capillary Refill, Normal Inspection, Normal Range of Motion, Non Tender, No Calf Tenderness, No Pedal Edema Neurologic/Psychiatric: Alert, Oriented x3, Normal Mood/Affect, training associate 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 FIM Transfers Therapy Code Descriptions/Definitions Functional [place] Measure: 0=Not Assessed/NA 4=Minimal Assistance 1=Total Assistance 5=Supervision or Setup 2=Maximal Assistance 6=Modified [place] 3=Moderate Assistance 7=Complete IndependenceSCALE: Activities may be completed with or without assistive devices. 1-Uctcvuulzd-gkufhpg completes the activity by him/herself with no assistance fr om a helper. 5-Set-up or Clean-up Assistance-helper sets up or cleans up; patient completes activity. [place] assists only prior to or following the activity. 4-Supervision or Touching Assistance-helper provides verbal cues and/or touching/steadying and/or contact guard assistance as patient completes activity. Assistance may be provided throughout the activity or intermittently. 3-Partial/Moderate Assistance-helper does LESS THAN HALF the effort. [place] lifts, holds or supports trunk or limbs, but provides less than half the effort. 2-Substantial/Maximal Assistance-helper does MORE THAN HALF the effort. [place] lifts or holds trunk or limbs and provides more than half the effort. 8-Bsnolwjnc-eczjtu does ALL the effort. Patient does none of the effort to complete the activity. Or, the assistance of 2 or more helpers is required for the patient to complete the activity. If activity was not attempted, code reason: 7-Patient Refused. 9-Not Applicable-not attempted and the patient did not perform the activity before the current illness, exacerbation or injury. 10-Not Attempted due to Environmental Limitations-(lack of equipment, weather restraints, etc.). 88-Not Attempted due to Medical Conditions or Safety Concerns. Roll Left to Right (QC): 6 Sit to Lying (QC): 6 Sit to Stand (QC): 6 Chair/Mwa-nc-Urksh Xfer(QC): 5 Car Transfer (QC): 4 Gait Training Does the Patient Walk?: Yes Walk 10 feet (QC): 4 Walk 50 ft with 2 Turns(QC): 4 Walk 150 ft (QC): 4 Walking 10ft/uneven surface-QC: 88 Gait Assistive Device: FWW Wheelchair Training Does the Pt Use a Wheelchair?: Yes Wheel 50 ft with 2 turns (QC): 9 Wheel 150 ft (QC): 9 Type of Wheelchair: Manual Stair Training 1 Step (curb) (QC): 9 4 Steps (QC): 4 12 Steps (QC): 9 Balance Picking up an Object (QC): 3 (Min A) ADL-Treatment Eating (QC): 6 Oral Hygiene (QC): 5 (seated) Bathing Location: Perineal Area Shower/Bathe Self (QC): 5 Upper Body Dressing (QC): 5 Lower Body Dressing (QC): 5 On/Off Footwear (QC): 5 Toileting Hygiene (QC): 4 Toilet Transfer (QC): 4 Assessment/Plan Assessment and Plan Assess & Plan/Chief Complaint Assessment: Compression fractures T11-L2 Fall Indwelling catheter Fibromyalgia Bipolar disorder UTIs no evidence of acute UTI here UA sterile in and out cath is normal Acute encephalopathy due to medications Tremors 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 Plan: Supportive care Pain control Lynch catheter to remain for 1 more day Home meds 12/06/2022: Updated sister at the bedside Monitor confusion 12/07/2022: Supportive care Monitor closely 12/08/2022: Improved pain DC fentanyl patch 12/09/2022: UA normal 12/10/2022: Fall risk remains Aggressive rehab 12/11/2022: Supportive care Monitor closely 12/12/2022: Supportive care DC salt tablets 12/13/2022: Continue limiting fluid 12/14/2022: Wheelchair mobility Check labs in the morning (1) Compression fracture of L2 Status: Acute (2) Lumbar radiculopathy Status: Acute (3) Debility Status: Acute GABRIEL VIRGEN DO Dec 14, 2022 06:15
[2022-12-14] MEDS: MULTIVIT W/MINERALS TAB (THERAGRAN M) PO SCH (06:44)
[2022-12-14] MEDS: ACETAMINOPHEN 325 MG TABLET PO PRN ×3 (06:44→20:05)
[2022-12-14] MEDS: IBUPROFEN 600 MG (MOTRIN) TAB PO PRN ×3 (06:44→20:06)
[2022-12-14] MEDS: BACLOFEN 10 MG (LIORESAL) TAB PO SCH ×4 (06:44→20:06)
[2022-12-14 08:00] VITALS: BP 121/60
[2022-12-14] MEDS: VITAMIN D3 25 MCG (1,000 UNITS) TABLET PO SCH (08:30)
[2022-12-14] MEDS: CRANBERRY EXTRACT 500 MG PO SCH (08:30)
[2022-12-14] MEDS: CALCIUM CARBONATE 600 MG (CALCARB) TAB PO SCH (08:30)
[2022-12-14] MEDS: PANTOPRAZOLE 40 MG (PROTONIX) TAB PO SCH (08:59)
[2022-12-14] MEDS: DOCUSATE SODIUM 100 MG (COLACE) CAP PO SCH ×2 (08:59→20:00)
[2022-12-14] MEDS: DICYCLOMINE 10 MG (BENTYL) CAP PO SCH ×3 (09:00→20:05)
[2022-12-14] MEDS: NICOTINE PATCH REMOVAL TP SCH (09:00)
[2022-12-14] MEDS: NICOTINE 21 MG (NICODERM) PATCH TD SCH (09:00)
[2022-12-14] MEDS: BIOTIN 10000 MCG PO SCH (09:00)
[2022-12-14] MEDS: LACTOBACILLUS ACIDOPHILUS (PROBIOTIC) CAPSULE PO SCH (09:00)
[2022-12-14] MEDS: DICLOFENAC 1% GEL 100 GM (VOLTAREN) TUBE TOP SCH ×4 (09:00→20:16)
[2022-12-14] MEDS: OMEGA 3 (FISH OIL) 1000 MG CAP PO SCH (09:00)
[2022-12-14] MEDS: buPROPion SR 150 MG (WELLBUTRIN SR) TAB PO SCH (09:01)
[2022-12-14] MEDS: hydrOXYzine (ATARAX) 10 MG TAB PO PRN ×2 (09:02→20:05)
[2022-12-14] MEDS: LEVOMILNACIPRAN HYDROCHLORIDE 80 MG PO SCH (09:02)
--- NOTE | 2022-12-14 09:36 | Occupational Ther Daily Note ---
OT Current Status-Daily Note Subjective Pt was sitting in wheelchair upon arrival. Alert and cooperative, agreed to therapy. ADL-Treatment Pt gathered clothing at wheelchair level and brought into bathroom to completed grooming and oral care. Pt also cleaned up sponge bath, only requiring assistance from therapist to wash back. Pt completed grooming and oral hygiene while seated independently. Pt doffed upper body dressing and lower body dressing, with set up assist, SBA for safety. Therapist demonstrated HEP exercises for pt to take home. Pt donned footwear with set up assist. Therapist spoke to family about patients current level of function and suggestions for discharge home with caregiver. Pt was left in room in chair with call light and phone in hand, all needs met, pt sister present in room Therapy Code Descriptions/Definitions Functional [place] Measure: 0=Not Assessed/NA 4=Minimal Assistance 1=Total Assistance 5=Supervision or Setup 2=Maximal Assistance 6=Modified [place] 3=Moderate Assistance 7=Complete IndependenceSCALE: Activities may be completed with or without assistive devices. 2-Bgqkxfsxmi-ezxaurh completes the activity by him/herself with no assistance from a helper. 5-Set-up or Clean-up Assistance-helper sets up or cleans up; patient completes activity. [place] assists only prior to or following the activity. 4-Supervision or Touching Assistance-helper provides verbal cues and/or touching/steadying and/or contact guard assistance as patient completes a ctivity. Assistance may be provided throughout the activity or intermittently. 3-Partial/Moderate Assistance-helper does LESS THAN HALF the effort. [place] lifts, holds or supports trunk or limbs, but provides less than half the effort. 2-Substantial/Maximal Assistance-helper does MORE THAN HALF the effort. [place] lifts or holds trunk or limbs and provides more than half the effort. 6-Qhgdnlkel-tyoppe does ALL the effort. Patient does none of the effort to complete the activity. Or, the assistance of 2 or more helpers is required for the patient to complete the activity. If activity was not attempted, code reason: 7-Patient Refused. 9-Not Applicable-not attempted and the patient did not perform the activity before the current illness, exacerbation or injury. 10-Not Attempted due to Environmental Limitations-(lack of equipment, weather restraints, etc.). 88-Not Attempted due to Medical Conditions or Safety Concerns. Education OT Patient Education: Correct positioning, Energy conservation, Instructions don/doff splint/brace, Progress toward Goal/Update tx plan, Purpose of tx/functional activities, Safety issues Teaching Recipient: Patient, Family Teaching Methods: Discussion Response to Teaching: Verbalize Understanding OT Short Term Goals Short Term Goals Time Frame: Dec 06, 2022 Eatin Oral hygiene: 6 Toileting hygiene: 4 OT Friction Welding Machine Operator Goals Fdc Goals Acute change in mental status: 0 Inattention: 2 Disorganized thinkin Altered level of consciousness: 0 Eating (QC): 6 Oral Hygiene (QC): 6 Toileting Hygiene (QC): 6 (w/ AD) Shower/Bathe Self (QC): 4 Upper Body Dressing (QC): 5 Lower Body Dressing (QC): 5 On/Off Footwear (QC): 5 1=Demonstrate adherence to instructed precautions during ADL tasks. 2=Patient will verbalize/demonstrate understanding of assistive devices/modifications for ADL. 3=Patient will improve strength/tolerance for activity to enable patient to perform ADL's. OT Education/Plan Problem List/Assessment Assessment: Decreased Safety Aware, Decreased UE Strength Discharge Recommendations Plan/Recommendations: Continue POC Treatment Plan/Plan of Care Patient would benefit from OT for education, treatment and training to promote independence in ADL's, mobility, safety and/or upper extremity function for ADL's. Plan of Care: ADL Retraining, Cognitive Retraining, Concurrent Therapy, Functional Mobility, Group Exercise/Act as Ind, Orthotic Fitting/Training, UE Funct Exercise/Act, UE Neuromus Re-Ed/Coord Treatment Duration: Jan 05, 2023 Frequency: At least 5 of 7 days/Wk (IRF) Estimated Hrs Per Day: 1.5 hours per day Agreement: Yes Rehab Potential: Fair Time Start Time: 08:00 Stop Time: 09:15 DATE: Dec 14, 2022 Total Time Billed (hr/min): 75 Billed Treatment Time 1 visit ADL 4 (60) FA 1 (15) Shira Gamino COTA Dec 14, 2022 09:36
--- NOTE | 2022-12-14 09:47 | Physical Therapy Daily Note ---
PT Daily Note-Current Subjective Pt in room in WC upon arrival and willing or therapy. Pt reports no pain at this time. pt stated she was frustrated her progress is not further with reassurance that everyone heals different and at their own pace. Pt was left in WC after therapy with call light and all needs met with sister and caregiver. Pain Section J - Health Conditions 1. Rarely or not at all 2. Occasionally 3. Frequently 4. Almost constantly 8. Unable to answer Pain Effect on Sleep: 2 Pain Interference with Therapy: 3 Pain Interference w/Day-to-Day: 2 Transfers SCALE: Activities may be completed with or without assistive devices. 5-Wxunhkfdzn-aathrql completes the activity by him/herself with no assistance from a helper. 5-Set-up or Clean-up Assistance-helper sets up or cleans up; patient completes activity. [place] assists only prior to or following the activity. 4-Supervision or Touching Assistance-helper provides verbal cues and/or touching/steadying and/or contact guard assistance as patient completes activity. Assistance may be provided throughout the activity or intermittently. 3-Partial/Moderate Assistance-helper does LESS THAN HALF the effort. [place] lifts, holds or supports trunk or limbs, but provides less than half the effort. 2-Substantial/Maximal Assistance-helper does MORE THAN HALF the effort. [place] lifts or holds trunk or limbs and provides more than half the effort. 9-Odjmwoddf-cvpfob does ALL the effort. Patient does none of the effort to complete the activity. Or, the assistance of 2 or more helpers is required for the patient to complete the activity. If activity was not attempted, code reason: 7-Patient Refused. 9-Not Applicable-not attempted and the patient did not perform the activity before the current illness, exacerbation or injury. 10-Not Attempted due to Environmental Limitations-(lack of equipment, weather restraints, etc.). 88-Not Attempted due to Medical Conditions or Safety Concerns. Weight Bearing Right Lower Extremity: Right Full Weight Bearing Left Lower Extremity: Left Full Weight Bearing Treatments ACADEMIC COORDINATOR provided family training to sister and caregiver this day about pt progress with transfers, mobility and safety issues that are a concern. pt is warranted to CGA to SBA at all times with the lack of safety pt presents with. Pt is able to preform all transfers, ambulate with RW for distances of 250ft but lacks safety and sequencing and requires VC to maintain safety at all times PT sister and caregiver were aware and understood all concerning issues with no further questions at this time. Assessment Current Status: Fair Progress PT [facility] Goals [facility] Goals PT Photo Editor Goals Time Frame: Dec 15, 2022 Roll Left & Right (QC): 4 (Pt will be SBA for functional mobility with the FWW to safely d/c home with assistance. ) Sit to Lying (QC): 4 (Pt will be SBA for functional mobility with the FWW to safely d/c home with assistance. ) Lying-Sitting on Side/Bed(QC): 4 (Pt will be SBA for functional mobility with the FWW to safely d/c home with assistance. ) Sit to Stand (QC): 4 (Pt will be SBA for functional mobility with the FWW to safely d/c home with assistance. ) Chair/Cai-ep-Yolbh Xfer(QC): 4 (Pt will be SBA for functional mobility with the FWW to safely d/c home with assistance. ) Toilet Transfer (QC): 4 (Pt will be SBA for functional mobility with the FWW to safely d/c home with assistance. ) Car Transfer (QC): 4 (Pt will be SBA for functional mobility with the FWW to safely d/c home with assistance. ) Does the Patient Walk: Yes Walk 10 feet (QC): 4 (Pt will be SBA for functional mobility with the FWW to safely d/c home with assistance. ) Walk 50ft with 2 Turns (QC): 4 (Pt will be SBA for functional mobility with the FWW to safely d/c home with assistance. ) Walk 150 ft (QC): 4 (Pt will be SBA for functional mobility with the FWW to safely d/c home with assistance. ) Walking 10ft on Uneven Surface: 4 (Pt will be SBA for functional mobility with the FWW to safely d/c home with assistance. ) 1 Step (curb) (QC): 9 4 Steps (QC): 9 12 Steps (QC): 9 Picking up an Object (QC): 4 (Pt will be SBA for functional mobility with the FWW to safely d/c home with assistance. ) Does the Pt use WC or Scooter?: Yes Wheel 50 feet with 2 turns (QC: 6 (Ind with w/c mobility ) Type: Manual Wheel 150 feet: 6 (Ind with w/c mobility ) Type: Manual PT Plan Treatment/Plan Treatment Plan: Continue Plan of Care Treatment Plan: Bed Mobility, Concurrent Therapy, Education, Functional Activity [place], Functional Strength, Group Therapy, Gait, Safety, Therapeutic Exercise, Transfers Treatment Duration: Dec 15, 2022 Frequency: At least 5 of 7 days/Wk (IRF) Estimated Hrs Per Day: 1.5 hours per day Patient and/or Family Agrees t: Yes Time Time In: 914 Time Out: 929 DATE: Dec 14, 2022 Total Billed Treatment Time: 15 Total Billed Treatment [address] ACADEMIC COORDINATOR Dec 14, 2022 09:47
[2022-12-14] MEDS: FAMOTIDINE 20 MG (PEPCID) TABLET PO SCH (11:01)
[2022-12-14] MEDS: DIVALPROEX 250 MG DELAYED RELEASE (DEPAKOTE) TAB PO SCH ×2 (11:01→20:06)
[2022-12-14] MEDS: CALCITONIN NASAL 200 INTLU/AC (FORTICAL) 3.7 ML BTL SCH (11:02)
[2022-12-14] MEDS: SENNA W/DOCUSATE (SENOKOT S) TABLET PO SCH ×2 (11:14→20:00)
[2022-12-14] MEDS: LIDOCAINE 4% (SALONPAS) PATCH TOP SCH (11:16)
--- NOTE | 2022-12-14 12:00 | Speech Therapy Daily Note ---
Speech Daily Progress Note Subjective Date Seen by Provider: Dec 14, 2022 Time Seen by Provider: 09:45 Pt sitting up in chair. Pt had just finished family planning meeting with daughter and caregiver. Pt appears frustrated during session. Pt pleasant and cooperative but extremely hard to keep on task. Pain Numeric Pain Scale: 3 Location: Right Comment: side Objective Pt is hard to keep on task this date. Pt talks about the family planning meeting. Pt starts telling a story about her siblings when they were younger but appears to get off track and is talking about present day. Pt completes mental manipulation of 3 words with mod assist with 66% accuracy. Assessment Assessment Current Status: Fair Progress Treatment Plan Continue Plan of Care Speech Short Term Goals Short Term Goals Short Term Goals 1. The patient will demonstrate memory exercises with 80% accuracy and mild clinician verbal cueing. 2. The patient will demonstrate safe swallowing strategies with 90% accuracy and mild clinician verbal cueing. Time Frame-STG: One Week. Speech [place] Goals [facility]dc Goals 1. The patient will demonstrate improved cognitive linguistic communication for safe discharge to the least restrictive environment. 2. The patient will tolerate the least restrictive diet consistency without s/s of suspected aspiration. Time Frame: Two Weeks. Speech-Plan Patient/Family Goals Patient/Family Goals: Pt's goal is to return home with assistance. Treatment Plan Speech Therapy Treatment Plan: Continue Plan of Care Treatment Duration: Dec 16, 2022 Frequency: Modified Program (IRF) (Four to five times per week.) Estimated Hrs Per Day: .5 hour per day Rehab Potential: Fair Safety Risks/Education Teaching Recipient: Patient Teaching Methods: Discussion Response to Teaching: Reinforcement Needed Education Topics Provided: Pt educated on purpose of therapy tasks. Pt also left pages to work on in her down time. Pt receptive but will require reinforcement. Time Speech Therapy Time In: 09:45 Speech Therapy Time Out: 10:25 DATE: Dec 14, 2022 Total Billed Time: 40 Billed Treatment Time S/L Ting Lujan Speech Therapy Dec 14, 2022 12:00
--- NOTE | 2022-12-14 12:44 | Physical Therapy Daily Note ---
PT Daily Note-Current Subjective pt in room upon arrival and willing for therapy. pt was left in WC after therapy session with call light and nursing staff present. Pain Section J - Health Conditions 1. Rarely or not at all 2. Occasionally 3. Frequently 4. Almost constantly 8. Unable to answer Pain Effect on Sleep: 2 Pain Interference with Therapy: 3 Pain Interference w/Day-to-Day: 2 Transfers SCALE: Activities may be completed with or without assistive devices. 2-Udysirmgrs-fkyybqb completes the activity by him/herself with no assistance from a helper. 5-Set-up or Clean-up Assistance-helper sets up or cleans up; patient completes activity. [place] assists only prior to or following the activity. 4-Supervision or Touching Assistance-helper provides verbal cues and/or touching/steadying and/or contact guard assistance as patient completes activity. Assistance may be provided throughout the activity or intermittently. 3-Partial/Moderate Assistance-helper does LESS THAN HALF the effort. [place] lifts, holds or supports trunk or limbs, but provides less than half the effort. 2-Substantial/Maximal Assistance-helper does MORE THAN HALF the effort. [place] lifts or holds trunk or limbs and provides more than half the effort. 5-Qbkphhrzm-idvytw does ALL the effort. Patient does none of the effort to complete the activity. Or, the assistance of 2 or more helpers is required for the patient to complete the activity. If activity was not attempted, code reason: 7-Patient Refused. 9-Not Applicable-not attempted and the patient did not perform the activity before the current illness, exacerbation or injury. 10-Not Attempted due to Environmental Limitations-(lack of equipment, weather restraints, etc.). 88-Not Attempted due to Medical Conditions or Safety Concerns. Weight Bearing Right Lower Extremity: Right Full Weight Bearing Left Lower Extremity: Left Full Weight Bearing Treatments Pt preformed sit to stand and toileting activates this day with VC for safe and sequencing to prevent falls. SBA when seated and CGA when standing secondary to balance deficit this day PT Platform Power Technician Goals Platform Power Technician Goals PT Fpc Goals Time Frame: Dec 15, 2022 Roll Left & Right (QC): 4 (Pt will be SBA for functional mobility with the FWW to safely d/c home with assistance. ) Sit to Lying (QC): 4 (Pt will be SBA for functional mobility with the FWW to safely d/c home with assistance. ) Lying-Sitting on Side/Bed(QC): 4 (Pt will be SBA for functional mobility with the FWW to safely d/c home with assistance. ) Sit to Stand (QC): 4 (Pt will be SBA for functional mobility with the FWW to safely d/c home with assistance. ) Chair/Roi-hv-Ojafv Xfer(QC): 4 (Pt will be SBA for functional mobility with the FWW to safely d/c home with assistance. ) Toilet Transfer (QC): 4 (Pt will be SBA for functional mobility with the FWW to safely d/c home with assistance. ) Car Transfer (QC): 4 (Pt will be SBA for functional mobility with the FWW to safely d/c home with assistance. ) Does the Patient Walk: Yes Walk 10 feet (QC): 4 (Pt will be SBA for functional mobility with the FWW to safely d/c home with assistance. ) Walk 50ft with 2 Turns (QC): 4 (Pt will be SBA for functional mobility with the FWW to safely d/c home with assistance. ) Walk 150 ft (QC): 4 (Pt will be SBA for functional mobility with the FWW to safely d/c home with assistance. ) Walking 10ft on Uneven Surface: 4 (Pt will be SBA for functional mobility with the FWW to safely d/c home with assistance. ) 1 Step (curb) (QC): 9 4 Steps (QC): 9 12 Steps (QC): 9 Picking up an Object (QC): 4 (Pt will be SBA for functional mobility with the FWW to safely d/c home with assistance. ) Does the Pt use WC or Scooter?: Yes Wheel 50 feet with 2 turns (QC: 6 (Ind with w/c mobility ) Type: Manual Wheel 150 feet: 6 (Ind with w/c mobility ) Type: Manual PT Plan Treatment/Plan Treatment Plan: Continue Plan of Care Treatment Plan: Bed Mobility, Concurrent Therapy, Education, Functional Activity D[place], Functional Strength, Group Therapy, Gait, Safety, Therapeutic Exercise, Transfers Treatment Duration: Dec 15, 2022 Frequency: At least 5 of 7 days/Wk (IRF) Estimated Hrs Per Day: 1.5 hours per day Patient and/or Family Agrees t: Yes Time Time In: 1025 Time Out: 1100 DATE: Dec 14, 2022 Total Billed Treatment Time: 35 Total Billed Treatment [address] FA x [address] WATERPROOF MATERIAL FOLDER Dec 14, 2022 12:44
--- NOTE | 2022-12-14 14:25 | Therapy Group Daily Note ---
Therapy Daily Group Note Patient Education Topic Exercises Exercises LE Seated Exercise, UE Exercise Session Ratio (pt:therapist): 3:1 Goal of Session: Memory Strategies, UE/LE Strengthing, Safety with Transfers Goal Met for this Session: Yes Pt Benefit of Group: Increased Functional Safety, Increased Functional Strength, Improved Cognition, Socialization Other/Notes Pt was propelled to therapy gym for OT group. Group consisted of trivia, socialization, B UE/LE seated exercises and educational topic on HEP exercises. Pt introduced self appropriately and actively listened to peers. Pt was able to verbalize understanding of educational topic by answering trivia questions on topic. Pt able to complete B UE/LE exercises. pt met 3/4 trivia questions. After session, pt sitting in wheelchair with call light/phone in reach. All needs met in room. Start Time: 13:00 Stop Time: 14:00 Total Billed Treatment Time: 60 Total Billed Treatment 1, GRP Shira Gamino COTA Dec 14, 2022 14:25
[2022-12-14] MEDS: ENOXAPARIN 40 MG/0.4 ML (LOVENOX) SYR SC SCH (18:19)
[2022-12-14 20:04] VITALS: BP 125/73
[2022-12-14] MEDS: polyethylene glycoL POWDER 17 GM (MIRALAX) PACK PO PRN (20:04)
[2022-12-14] MEDS: GABAPENTIN 300 MG (NEURONTIN) CAP PO SCH (20:05)
[2022-12-14] MEDS: meTOproloL SUCCINATE 50 MG (TOPROL XL) TAB PO SCH (20:06)
[2022-12-14] MEDS: MONTELUKAST 10 MG (SINGULAIR) TAB PO SCH (20:06)
[2022-12-14] MEDS: LIDOCAINE PATCH REMOVAL TP SCH (20:16)
[2022-12-15] MEDS: GABAPENTIN 100 MG (NEURONTIN) CAP PO SCH ×5 (00:11→17:46)
[2022-12-15 06:00] LABS: BASOPHILS # (AUTO) 0.1 10^3/uL (0.0-0.1); BASOPHILS % (AUTO) 1 % (0-10); EOSINOPHILS % (AUTO) 0 % (0-10); HEMATOCRIT 34 % (35-52); HEMOGLOBIN 11.9 g/dL (11.5-16.0); LYMPHOCYTES # (AUTO) 2.4 10^3/uL (1.0-4.0); LYMPHOCYTES % (AUTO) 28 % (12-44); MEAN CORPUSCULAR HEMOGLOBIN 31 pg (25-34); MEAN CORPUSCULAR HGB CONC 35 g/dL (32-36); MEAN CORPUSCULAR VOLUME 90 fL (80-99); MEAN PLATELET VOLUME 9.7 fL (9.0-12.2); MONOCYTES # (AUTO) 0.9 10^3/uL (0.0-1.0); MONOCYTES % (AUTO) 10 % (0-12); NEUTROPHILS # (AUTO) 5.3 10^3/uL (1.8-7.8); NEUTROPHILS % (AUTO) 60 % (42-75); PLATELET COUNT 344 10^3/uL (130-400); WHITE BLOOD COUNT 8.8 10^3/uL (4.3-11.0)
[2022-12-15] MEDS: IBUPROFEN 600 MG (MOTRIN) TAB PO PRN ×2 (06:10→18:16)
[2022-12-15] MEDS: MULTIVIT W/MINERALS TAB (THERAGRAN M) PO SCH (06:10)
[2022-12-15] MEDS: BACLOFEN 10 MG (LIORESAL) TAB PO SCH ×4 (06:10→17:45)
[2022-12-15] MEDS: ACETAMINOPHEN 325 MG TABLET PO PRN ×2 (06:10→18:16)
[2022-12-15 06:21] LABS: ALBUMIN 3.6 GM/DL (3.2-4.5); POTASSIUM 4.2 MMOL/L (3.6-5.0)
[2022-12-15 06:23] LABS: CALCIUM 8.6 MG/DL (8.5-10.1)
[2022-12-15 06:24] LABS: TOTAL PROTEIN 6.3 GM/DL (6.4-8.2)
[2022-12-15 06:26] LABS: BILIRUBIN,TOTAL 0.2 MG/DL (0.1-1.0)
[2022-12-15 06:27] LABS: CREATININE SERUM 1.06 MG/DL (0.60-1.30)
[2022-12-15 08:00] VITALS: BP 117/59
[2022-12-15] MEDS: buPROPion SR 150 MG (WELLBUTRIN SR) TAB PO SCH (08:56)
[2022-12-15] MEDS: DOCUSATE SODIUM 100 MG (COLACE) CAP PO SCH (08:56)
[2022-12-15] MEDS: PANTOPRAZOLE 40 MG (PROTONIX) TAB PO SCH (08:56)
[2022-12-15] MEDS: FAMOTIDINE 20 MG (PEPCID) TABLET PO SCH (08:56)
[2022-12-15] MEDS: DIVALPROEX 250 MG DELAYED RELEASE (DEPAKOTE) TAB PO SCH (08:56)
[2022-12-15] MEDS: LACTOBACILLUS ACIDOPHILUS (PROBIOTIC) CAPSULE PO SCH (08:56)
[2022-12-15] MEDS: NICOTINE 21 MG (NICODERM) PATCH TD SCH (08:57)
[2022-12-15] MEDS: CRANBERRY EXTRACT 500 MG PO SCH (08:57)
[2022-12-15] MEDS: CALCIUM CARBONATE 600 MG (CALCARB) TAB PO SCH (08:57)
[2022-12-15] MEDS: DICYCLOMINE 10 MG (BENTYL) CAP PO SCH ×2 (08:57→12:49)
[2022-12-15] MEDS: OMEGA 3 (FISH OIL) 1000 MG CAP PO SCH (08:58)
[2022-12-15] MEDS: BIOTIN 10000 MCG PO SCH (08:58)
[2022-12-15] MEDS: VITAMIN D3 25 MCG (1,000 UNITS) TABLET PO SCH (09:01)
[2022-12-15] MEDS: LEVOMILNACIPRAN HYDROCHLORIDE 80 MG PO SCH (09:03)
[2022-12-15] MEDS: CALCITONIN NASAL 200 INTLU/AC (FORTICAL) 3.7 ML BTL SCH (09:03)
[2022-12-15] MEDS: DICLOFENAC 1% GEL 100 GM (VOLTAREN) TUBE TOP SCH ×3 (09:05→17:42)
[2022-12-15] MEDS: SENNA W/DOCUSATE (SENOKOT S) TABLET PO SCH (09:07)
[2022-12-15] MEDS: polyethylene glycoL POWDER 17 GM (MIRALAX) PACK PO PRN (09:07)
--- NOTE | 2022-12-15 09:39 | Occupational Ther Daily Note ---
OT Current Status-Daily Note Subjective Pt in chair in room upon arrival. Pt agrees to therapy, alert and cooperative. ADL-Treatment Pt addressed wheelchair mobility for strengthening and safety for home use. Pt propelled self using feet and arms around the ARU, requiring Sumaya to guide the wheelchair in the correct direction. Pt propelled self back to room and requested to use the rest room. Pt transferred out of wheelchair onto toilet, SBA. Pt completed lower body dressing with SBA. CGA for toilet hygiene, and to transferred back into wheelchair. Pt propelled self back into room, where she completed HEP exercises with light to medium resistance (red). Pt completed 6 reps 2 sets with difficulty, requiring rest breaks. Pt was instructed to work up to 10-12 reps a day. Pt was left in room with nursing, administering meds, all needs met. Therapy Code Descriptions/Definitions Functional [place] Measure: 0=Not Assessed/NA 4=Minimal Assistance 1=Total Assistance 5=Supervision or Setup 2=Maximal Assistance 6=Modified [place] 3=Moderate Assistance 7=Complete IndependenceSCALE: Activities may be completed with or without assistive devices. 9-Sdpldrtllf-zdmfvck completes the activity by him/herself with no assistance from a helper. 5-Set-up or Clean-up Assistance-helper sets up or cleans up; patient completes activity. [place] assists only prior to or following the activity. 4-Supervision or Touching Assistance-helper provides verbal cues and/or touching/steadying and/or contact guard assistance as patient completes activity. Assistance may be provided throughout the activity or intermittently. 3-Partial/Moderate Assistance-helper does LESS THAN HALF the effort. [place] lifts, holds or supports trunk or limbs, but provides less than half the effort. 2-Substantial/Maximal Assistance-helper does MORE THAN HALF the effort. [place] lifts or holds trunk or limbs and provides more than half the effort. 6-Ptuichixm-obqrsj does ALL the effort. Patient does none of the effort to complete the activity. Or, the assistance of 2 or more helpers is required for the patient to complete the activity. If activity was not attempted, code reason: 7-Patient Refused. 9-Not Applicable-not attempted and the patient did not perform the activity before the current illness, exacerbation or injury. 10-Not Attempted due to Environmental Limitations-(lack of equipment, weather restraints, etc.). 88-Not Attempted due to Medical Conditions or Safety Concerns. Lower Body Dressing (QC): 4 (SBA) Toileting Hygiene (QC): 4 Education OT Patient Education: Home exercise program, Instructions don/doff splint/brace, Progress toward Goal/Update tx plan, Purpose of tx/functional activities, Safety issues, Transfer techniques, W/C management Teaching Recipient: Patient Teaching Methods: Demonstration, Handout, Discussion Response to Teaching: Verbalize Understanding, Return Demonstration, Reinforcement Needed OT Short Term Goals Short Term Goals Time Frame: Dec 06, 2022 Eatin Oral hygiene: 6 Toileting hygiene: 4 OT Residential Goals Referral Management Liaison Goals Acute change in mental status: 0 Inattention: 2 Disorganized thinkin Altered level of consciousness: 0 Eating (QC): 6 Oral Hygiene (QC): 6 Toileting Hygiene (QC): 6 (w/ AD) Shower/Bathe Self (QC): 4 Upper Body Dressing (QC): 5 Lower Body Dressing (QC): 5 On/Off Footwear (QC): 5 1=Demonstrate adherence to instructed precautions during ADL tasks. 2=Patient will verbalize/demonstrate understanding of assistive devices/modifications for ADL. 3=Patient will improve strength/tolerance for activity to enable patient to perform ADL's. OT Education/Plan Problem List/Assessment Assessment: Decreased Activ Tolerance, Decreased Safety Aware, Decreased UE Strength Discharge Recommendations Plan/Recommendations: Continue POC Treatment Plan/Plan of Care Patient would benefit from OT for education, treatment and training to promote independence in ADL's, mobility, safety and/or upper extremity function for ADL's. Plan of Care: ADL Retraining, Cognitive Retraining, Concurrent Therapy, Functional Mobility, Group Exercise/Act as Ind, Orthotic Fitting/Training, UE Funct Exercise/Act, UE Neuromus Re-Ed/Coord Treatment Duration: Jan 05, 2023 Frequency: At least 5 of 7 days/Wk (IRF) Estimated Hrs Per Day: 1.5 hours per day Agreement: Yes Rehab Potential: Fair Time Start Time: 08:00 Stop Time: 09:00 DATE: Dec 15, 2022 Total Time Billed (hr/min): 60 Billed Treatment Time 1 visit Ex 2 (30) FA 2 (30) Shira Gamino COTA Dec 15, 2022 09:38
--- NOTE | 2022-12-15 10:50 | PM&R Progress Note ---
Subjective HPI/CC On Admission Date Seen by Provider: Dec 15, 2022 Time Seen by Provider: 12:00 Subjective/Events-last exam 12/15/2022: Patient with multiple somatic complaints Sodium level 125 Continue to hold Dyazide Focused now on her hearing loss which is out of my scope of expertise 12/14/2022: Pain is improved Supportive care we will continue Wheelchair mobility now that she has doing wheelchair Patient improved 12/13/2022: Patient doing a lot better Walking better Leaned over position when she walks but she remains a fall risk regardless Feels much better No nausea Scopolamine patch improved 12/12/2022: Patient doing a lot better Had emesis after the sodium tablets so we will discontinue that and place scopolamine patch on Multiple somatic complaints 12/11/2022: Patient doing a lot better No pain is reported other than the back Participation is good Slow recovery 12/10/2022: Patient doing well Changed all of her medications to exactly how she takes at home but that varies by the day Pain is controlled Moving around a lot better Still remains fall risk 12/09/2022: Much improved Pain controlled UA normal No falls 12/08/2022: Patient doing a lot better Move around better Fentanyl patch off not as drowsy Changed all medications to which she was taking at home 12/07/2022: Patient doing well Less sedation but will pull off fentanyl patch Able to participate in therapy Checked meds and labs 12/06/2022: Patient doing about the same Was able to work with therapy but in between time she is very confused Pain is somewhat controlled Patient has such severe chronic pain and fibromyalgia and difficulty coping with that pain she will need slow recovery time Review of Systems General: Fatigue, Malaise Objective Exam Vital Signs Vital Signs Date Time Temp Pulse Resp B/P (MAP) Pulse Ox O2 Delivery O2 Flow Rate FiO2 12/15/22 21:16 35.7 78 16 135/63 (87) 92 Room Air 12/12/22 21:00 2.00 Capillary Refill : General Appearance: No Apparent Distress, WD/WN, Chronically ill, Thin, Other (Frail and pale) HEENT: PERRL/EOMI, Normal ENT Inspection, Pharynx Normal Neck: Full Range of Motion, Normal Inspection, Non Tender, Supple, Carotid Bruit Respiratory: Chest Non Tender, Lungs Clear, Normal Breath Sounds, No Accessory Muscle Use, No Respiratory Distress Cardiovascular: Regular Rate, Rhythm, No Edema, No Gallop, No JVD, No Murmur, Normal Peripheral Pulses Gastrointestinal: Normal Bowel Sounds, No Organomegaly, No Pulsatile Mass, Non Tender, Soft Back: CVA Tenderness (L), CVA Tenderness (R), Decreased Range of Motion, Muscle Spasm, Vertebral Tenderness Extremity: Normal Capillary Refill, Normal Inspection, Normal Range of Motion, Non Tender, No Calf Tenderness, No Pedal Edema Neurologic/Psychiatric: Alert, Oriented x3, Normal Mood/Affect, plodding operator II-XII Norm as Tested, Abnormal Gait, Depressed Affect, Motor Weakness ( generalized especially lower extremities) Skin: Normal Color, Warm/Dry Lymphatic: No Adenopathy Results/Procedures Lab Laboratory Tests 12/15/22 05:57 Patient resulted labs reviewed. FIM Transfers Therapy Code Descriptions/Definitions Functional [place] Measure: 0=Not Assessed/NA 4=Minimal Assistance 1=Total Assistance 5=Supervision or Setup 2=Maximal Assistance 6=Modified [place] 3=Moderate Assistance 7=Complete IndependenceSCALE: Activities may be completed with or without assistive devices. 3-Qupstdhqfh-yiyybkw completes the activity by him/herself with no assistance from a helper. 5-Set-up or Clean-up Assistance-helper sets up or cleans up; patient completes activity. [place] assists only prior to or following the activity. 4-Supervision or Touching Assistance-helper provides verbal cues and/or touching/steadying and/or contact guard assistance as patient completes activity. Assistance may be provided throughout the activity or intermittently. 3-Partial/Moderate Assistance-helper does LESS THAN HALF the effort. [place] lifts, holds or supports trunk or limbs, but provides less than half the effort. 2-Substantial/Maximal Assistance-helper does MORE THAN HALF the effort. [place] lifts or holds trunk or limbs and provides more than half the effort. 3-Dtelbnvai-nyccrm does ALL the effort. Patient does none of the effort to complete the activity. Or, the assistance of 2 or more helpers is required for the patient to complete the activity. If activity was not attempted, code reason: 7-Patient Refused. 9-Not Applicable-not attempted and the patient did not perform the activity before the current illness, exacerbation or injury. 10-Not Attempted due to Environmental Limitations-(lack of equipment, weather restraints, etc.). 88-Not Attempted due to Medical Conditions or Safety Concerns. Roll Left to Right (QC): 6 Sit to Lying (QC): 6 Sit to Stand (QC): 6 Chair/Avz-pl-Lrpup Xfer(QC): 5 Car Transfer (QC): 4 Gait Training Does the Patient Walk?: Yes Walk 10 feet (QC): 4 Walk 50 ft with 2 Turns(QC): 4 Walk 150 ft (QC): 4 Walking 10ft/uneven surface-QC: 88 Gait Assistive Device: FWW Wheelchair Training Does the Pt Use a Wheelchair?: Yes Wheel 50 ft with 2 turns (QC): 9 Wheel 150 ft (QC): 9 Type of Wheelchair: Manual Stair Training 1 Step (curb) (QC): 9 4 Steps (QC): 4 12 Steps (QC): 9 Balance Picking up an Object (QC): 3 (Min A) ADL-Treatment Eating (QC): 6 Oral Hygiene (QC): 5 (seated) Bathing Location: Perineal Area Shower/Bathe Self (QC): 5 Upper Body Dressing (QC): 5 Lower Body Dressing (QC): 5 On/Off Footwear (QC): 5 Toileting Hygiene (QC): 4 Toilet Transfer (QC): 4 Assessment/Plan Assessment and Plan Assess & Plan/Chief Complaint Assessment: Compression fractures T11-L2 Fall Indwelling catheter Fibromyalgia Bipolar disorder UTIs no evidence of acute UTI here UA sterile in and out cath is normal Acute encephalopathy due to medications Tremors 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 Somatic complaints Plan: Supportive care Pain control Lynch catheter to remain for 1 more day Home meds 12/06/2022: Updated sister at the bedside Monitor confusion 12/07/2022: Supportive care Monitor closely 12/08/2022: Improved pain DC fentanyl patch 12/09/2022: UA normal 12/10/2022: Fall risk remains Aggressive rehab 12/11/2022: Supportive care Monitor closely 12/12/2022: Supportive care DC salt tablets 12/13/2022: Continue limiting fluid 12/14/2022: Wheelchair mobility Check labs in the morning 12/15/2022: Supportive care Discharge on Sunday (1) Compression fracture of L2 Status: Acute (2) Lumbar radiculopathy Status: Acute (3) Debility Status: Acute GABRIEL VIRGEN DO Dec 15, 2022 10:50
[2022-12-15] MEDS ORDERED: SCOPOLAMINE PATCH REMOVAL TP SCH (10:59)
[2022-12-15] MEDS: NICOTINE PATCH REMOVAL TP SCH (11:54)
[2022-12-15] MEDS: LIDOCAINE 4% (SALONPAS) PATCH TOP SCH (12:02)
[2022-12-15 12:06] VITALS: BP 144/62
--- NOTE | 2022-12-15 12:40 | Physical Therapy Daily Note ---
PT Daily Note-Current Subjective Pt in room in upon arrival and willing for therapy. pt seems a bit more confused and has more tremors this day. pt seems to be talking in circles. and is unaware of this. PT/ST contacted nursing for assessment and are going to check med's etc. ST/OT co treat this day [id number] to work on divided attention and the confusion was increased Pt focused on giving directions for LE exercise and ST focused on memory recall. . pt was left in room in recliner with call light and all needs met after therapy. Pain Section J - Health Conditions 1. Rarely or not at all 2. Occasionally 3. Frequently 4. Almost constantly 8. Unable to answer Pain Effect on Sleep: 2 Pain Interference with Therapy: 3 Pain Interference w/Day-to-Day: 2 Mental Status Patient Orientation: Person Transfers SCALE: Activities may be completed with or without assistive devices. 5-Qwjnxeunsc-mqybpso completes the activity by him/herself with no assistance from a helper. 5-Set-up or Clean-up Assistance-helper sets up or cleans up; patient completes activity. [place] assists only prior to or following the activity. 4-Supervision or Touching Assistance-helper provides verbal cues and/or touching/steadying and/or contact guard assistance as patient completes activity. Assistance may be provided throughout the activity or intermittently. 3-Partial/Moderate Assistance-helper does LESS THAN HALF the effort. [place] lifts, holds or supports trunk or limbs, but provides less than half the effort. 2-Substantial/Maximal Assistance-helper does MORE THAN HALF the effort. [place] lifts or holds trunk or limbs and provides more than half the effort. 9-Cnlfnhswi-zsgnbl does ALL the effort. Patient does none of the effort to complete the activity. Or, the assistance of 2 or more helpers is required for the patient to complete the activity. If activity was not attempted, code reason: 7-Patient Refused. 9-Not Applicable-not attempted and the patient did not perform the activity before the current illness, exacerbation or injury. 10-Not Attempted due to Environmental Limitations-(lack of equipment, weather restraints, etc.). 88-Not Attempted due to Medical Conditions or Safety Concerns. Weight Bearing Right Lower Extremity: Right Full Weight Bearing Left Lower Extremity: Left Full Weight Bearing Neuromuscular PT is able to preform mobility from room to therapy gym with VC for how to pi vot both directions with hand and feet. pt requires MIN A stand pivot transfer to NU-step with VC and TC for sequencing and hand placement. pt preformed nu- step while ST was asking memory flash cards of shaps and colors. pt was sporadically change from having pt use just feet to hands and feet. pt did become more confused at flash cards as well as sequencing to preform Nu-step. 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 ) Sit to Lying (QC): 4 (Pt will be SBA for functional mobility with the FWW to safely d/c home with assistance. ) Lying-Sitting on Side/Bed(QC): 4 (Pt will be SBA for functional mobility with the FWW to safely d/c home with assistance. ) Sit to Stand (QC): 4 (Pt will be SBA for functional mobility with the FWW to safely d/c home with assistance. ) Chair/Zyw-im-Zatjs Xfer(QC): 4 (Pt will be SBA for functional mobility with the FWW to safely d/c home with assistance. ) Toilet Transfer (QC): 4 (Pt will be SBA for functional mobility with the FWW to safely d/c home with assistance. ) Car Transfer (QC): 4 (Pt will be SBA for functional mobility with the FWW to safely d/c home with assistance. ) Does the Patient Walk: Yes Walk 10 feet (QC): 4 (Pt will be SBA for functional mobility with the FWW to safely d/c home with assistance. ) Walk 50ft with 2 Turns (QC): 4 (Pt will be SBA for functional mobility with the FWW to safely d/c home with assistance. ) Walk 150 ft (QC): 4 (Pt will be SBA for functional mobility with the FWW to safely d/c home with assistance. ) Walking 10ft on Uneven Surface: 4 (Pt will be SBA for functional mobility with the FWW to safely d/c home with assistance. ) 1 Step (curb) (QC): 9 4 Steps (QC): 9 12 Steps (QC): 9 Picking up an Object (QC): 4 (Pt will be SBA for functional mobility with the FWW to safely d/c home with assistance. ) Does the Pt use WC or Scooter?: Yes Wheel 50 feet with 2 turns (QC: 6 (Ind with w/c mobility ) Type: Manual Wheel 150 feet: 6 (Ind with w/c mobility ) Type: Manual PT Plan Treatment/Plan Treatment Plan: Continue Plan of Care Treatment Plan: Bed Mobility, Concurrent Therapy, Education, Functional Activity [place], Functional Strength, Group Therapy, Gait, Safety, Therapeutic Exercise, Transfers Treatment Duration: Dec 15, 2022 Frequency: At least 5 of 7 days/Wk (IRF) Estimated Hrs Per Day: 1.5 hours per day Patient and/or Family Agrees t: Yes Time Time In: 1030 Time Out: 1200 DATE: Dec 15, 2022 Total Billed Treatment Time: 90 Total Billed Treatment 1 ex x 3 FA x [address] from [id number] for [address] 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
--- NOTE | 2022-12-15 13:27 | Speech Therapy Daily Note ---
Speech Daily Progress Note Subjective Date Seen by Provider: Dec 15, 2022 Time Seen by Provider: 11:00 Pt in therapy gym on the nu-step when [employer] joins for a cotreat with physical therapy to address attention and awareness while performing physical and cognitive tasks. Pt appears more confused than what has been seen during treatments. Nursing staff was notified. Pain Location: No Pain Reported Objective Pt completed divided attention task with 20% accuracy. Pt with significant difficulty naming shapes on cards this date. Pt was having a very difficult time sustaining attention and appeared to be more confused. Pt was able to answer orientation questions. Pt asked for her bra strap to be shortened, however pt did not have on a bra. Pt telling [employer]NS[employer], FRIT COATER, and nurse about her hearing and sinker winder. After a couple minutes, pt stops and then asks if she was talking about her eyes. Pt asked again about her bra and having the strap shortened later in the session and did not recall talking about it approximately 15 minutes earlier. Assessment Assessment Current Status: Regressing Regression with confusion Treatment Plan Continue Plan of Care Speech Short Term Goals Short Term Goals Short Term Goals 1. The patient will demonstrate memory exercises with 80% accuracy and mild clinician verbal cueing. 2. The patient will demonstrate safe swallowing strategies with 90% accuracy and mild clinician verbal cueing. Time Frame-STG: One Week. Speech Foreign Exchange Clerk Goals Intermediate Goals 1. The patient will demonstrate improved cognitive linguistic communication for safe discharge to the least restrictive environment. 2. The patient will tolerate the least restrictive diet consistency without s/s of suspected aspiration. Time Frame: Two Weeks. Speech-Plan Patient/Family Goals Patient/Family Goals: Pt's goal is to go home with assistance. Treatment Plan Speech Therapy Treatment Plan: Continue Plan of Care Treatment Duration: Dec 16, 2022 Frequency: Modified Program (IRF) (Four to five times per week.) Estimated Hrs Per Day: .5 hour per day Rehab Potential: Fair Safety Risks/Education Teaching Recipient: Patient Teaching Methods: Discussion Response to Teaching: Reinforcement Needed Education Topics Provided: Pt educated on purpose of therapy tasks. Pt will require reinforcement. Discharge Recommendations Post Acute ST Time Speech Therapy Time In: 11:00 Speech Therapy Time Out: 11:30 DATE: Dec 15, 2022 Total Billed Time: 30 Billed Treatment Time S/L [place] cotreat with PT Ting Hyde Speech Therapy Dec 15, 2022 13:27
[2022-12-15] MEDS: ENOXAPARIN 40 MG/0.4 ML (LOVENOX) SYR SC SCH (17:46)
[2022-12-15] MEDS: hydrOXYzine (ATARAX) 10 MG TAB PO PRN (18:22)
[2022-12-15 21:16] VITALS: BP 135/63
[2022-12-16] MEDS: meTOproloL SUCCINATE 50 MG (TOPROL XL) TAB PO SCH ×2 (00:01→23:41)
[2022-12-16] MEDS: DIVALPROEX 250 MG DELAYED RELEASE (DEPAKOTE) TAB PO SCH ×3 (00:01→23:48)
[2022-12-16] MEDS: DOCUSATE SODIUM 100 MG (COLACE) CAP PO SCH ×3 (00:01→23:48)
[2022-12-16] MEDS: MONTELUKAST 10 MG (SINGULAIR) TAB PO SCH ×2 (00:01→23:42)
[2022-12-16] MEDS: DICLOFENAC 1% GEL 100 GM (VOLTAREN) TUBE TOP SCH ×5 (00:02→23:45)
[2022-12-16] MEDS: BACLOFEN 10 MG (LIORESAL) TAB PO SCH ×5 (00:02→23:41)
[2022-12-16] MEDS: LIDOCAINE PATCH REMOVAL TP SCH ×2 (00:02→23:49)
[2022-12-16] MEDS: ESTRADIOL VAGINAL CREAM 42.5 GM (ESTRACE) VG SCH (00:02)
[2022-12-16] MEDS: GABAPENTIN 100 MG (NEURONTIN) CAP PO SCH ×5 (00:05→23:42)
[2022-12-16] MEDS: MULTIVIT W/MINERALS TAB (THERAGRAN M) PO SCH ×2 (06:34→11:21)
--- NOTE | 2022-12-16 06:52 | PM&R Progress Note ---
Subjective HPI/CC On Admission Date Seen by Provider: Dec 16, 2022 Time Seen by Provider: 12:30 Subjective/Events-last exam 12/16/2022: Patient is having some delusions Focusing on different things every day Pain seems to be improved Needs psych follow-up 12/15/2022: Patient with multiple somatic complaints Sodium level 125 Continue to hold Dyazide Focused now on her hearing loss which is out of my scope of expertise 12/14/2022: Pain is improved Supportive care we will continue Wheelchair mobility now that she has doing wheelchair Patient improved 12/13/2022: Patient doing a lot better Walking better Leaned over position when she walks but she remains a fall risk regardless Feels much better No nausea Scopolamine patch improved 12/12/2022: Patient doing a lot better Had emesis after the sodium tablets so we will discontinue that and place scopolamine patch on Multiple somatic complaints 12/11/2022: Patient doing a lot better No pain is reported other than the back Participation is good Slow recovery 12/10/2022: Patient doing well Changed all of her medications to exactly how she takes at home but that varies by the day Pain is controlled Moving around a lot better Still remains fall risk 12/09/2022: Much improved Pain controlled UA normal No falls 12/08/2022: Patient doing a lot better Move around better Fentanyl patch off not as drowsy Changed all medications to which she was taking at home 12/07/2022: Patient doing well Less sedation but will pull off fentanyl patch Able to participate in therapy Checked meds and labs 12/06/2022: Patient doing about the same Was able to work with therapy but in between time she is very confused Pain is somewhat controlled Patient has such severe chronic pain and fibromyalgia and difficulty coping with that pain she will need slow recovery time Review of Systems General: Fatigue, Malaise Objective Exam Vital Signs Vital Signs Date Time Temp Pulse Resp B/P (MAP) Pulse Ox O2 Delivery O2 Flow Rate FiO2 12/16/22 09:00 93 Room Air 12/16/22 08:00 35.5 76 16 130/56 (80) 12/12/22 21:00 2.00 Capillary Refill : General Appearance: No Apparent Distress, WD/WN, Chronically ill, Thin, Other (Frail and pale) HEENT: PERRL/EOMI, Normal ENT Inspection, Pharynx Normal Neck: Full Range of Motion, Normal Inspection, Non Tender, Supple, Carotid Bruit Respiratory: Chest Non Tender, Lungs Clear, Normal Breath Sounds, No Accessory Muscle Use, No Respiratory Distress Cardiovascular: Regular Rate, Rhythm, No Edema, No Gallop, No JVD, No Murmur, Normal Peripheral Pulses Gastrointestinal: Normal Bowel Sounds, No Organomegaly, No Pulsatile Mass, Non Tender, Soft Back: CVA Tenderness (L), CVA Tenderness (R), Decreased Range of Motion, Muscle Spasm, Vertebral Tenderness Extremity: Normal Capillary Refill, Normal Inspection, Normal Range of Motion, Non Tender, No Calf Tenderness, No Pedal Edema Neurologic/Psychiatric: Alert, Oriented x3, Normal Mood/Affect, 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 FIM Transfers Therapy Code Descriptions/Definitions Functional [place] Measure: 0=Not Assessed/NA 4=Minimal Assistance 1=Total Assistance 5=Supervision or Setup 2=Maximal Assistance 6=Modified [place] 3=Moderate Assistance 7=Complete IndependenceSCALE: Activities may be completed with or without assistive devices. 2-Jckykyduie-knaozru completes the activity by him/herself with no assistance from a helper. 5-Set-up or Clean-up Assistance-helper sets up or cleans up; patient completes activity. [place] assists only prior to or following the activity. 4-Supervision or Touching Assistance-helper provides verbal cues and/or touching/steadying and/or contact guard assistance as patient completes activity. Assistance may be provided throughout the activity or intermittently. 3-Partial/Moderate Assistance-helper does LESS THAN HALF the effort. [place] lifts, holds or supports trunk or limbs, but provides less than half the effort. 2-Substantial/Maximal Assistance-helper does MORE THAN HALF the effort. [place] lifts or holds trunk or limbs and provides more than half the effort. 5-Hjscciqwu-xqibdj does ALL the effort. Patient does none of the effort to complete the activity. Or, the assistance of 2 or more helpers is required for the patient to complete the activity. If activity was not attempted, code reason: 7-Patient Refused. 9-Not Applicable-not attempted and the patient did not perform the activity before the current illness, exacerbation or injury. 10-Not Attempted due to Environmental Limitations-(lack of equipment, weather restraints, etc.). 88-Not Attempted due to Medical Conditions or Safety Concerns. Roll Left to Right (QC): 6 Sit to Lying (QC): 6 Sit to Stand (QC): 6 Chair/Frw-ws-Deqav Xfer(QC): 5 Car Transfer (QC): 4 Gait Training Does the Patient Walk?: Yes Walk 10 feet (QC): 4 Walk 50 ft with 2 Turns(QC): 4 Walk 150 ft (QC): 4 Walking 10ft/uneven surface-QC: 88 Gait Assistive Device: FWW Wheelchair Training Does the Pt Use a Wheelchair?: Yes Wheel 50 ft with 2 turns (QC): 9 Wheel 150 ft (QC): 9 Type of Wheelchair: Manual Stair Training 1 Step (curb) (QC): 9 4 Steps (QC): 4 12 Steps (QC): 9 Balance Picking up an Object (QC): 3 (Min A) ADL-Treatment Eating (QC): 6 Oral Hygiene (QC): 5 (seated) Bathing Location: Perineal Area Shower/Bathe Self (QC): 5 Upper Body Dressing (QC): 5 Lower Body Dressing (QC): 4 (SBA) On/Off Footwear (QC): 5 Toileting Hygiene (QC): 4 Toilet Transfer (QC): 4 Assessment/Plan Assessment and Plan Assess & Plan/Chief Complaint Assessment: Compression fractures T11-L2 Fall Indwelling catheter Fibromyalgia Bipolar disorder UTIs no evidence of acute UTI here UA sterile in and out cath is normal Acute encephalopathy due to medications Tremors 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 Somatic complaints Plan: Supportive care Pain control Lynch catheter to remain for 1 more day Home meds 12/06/2022: Updated sister at the bedside Monitor confusion 12/07/2022: Supportive care Monitor closely 12/08/2022: Improved pain DC fentanyl patch 12/09/2022: UA normal 12/10/2022: Fall risk remains Aggressive rehab 12/11/2022: Supportive care Monitor closely 12/12/2022: Supportive care DC salt tablets 12/13/2022: Continue limiting fluid 12/14/2022: Wheelchair mobility Check labs in the morning 12/15/2022: Supportive care Discharge on Sunday12/16/2022: Supportive care (1) Compression fracture of L2 Status: Acute (2) Lumbar radiculopathy Status: Acute (3) Debility Status: Acute GABRIEL VIRGEN DO Dec 16, 2022 06:52
[2022-12-16 08:00] VITALS: BP 130/56
[2022-12-16] MEDS: DICYCLOMINE 10 MG (BENTYL) CAP PO SCH ×4 (11:21→23:43)
[2022-12-16] MEDS: buPROPion SR 150 MG (WELLBUTRIN SR) TAB PO SCH (11:21)
[2022-12-16] MEDS: OMEGA 3 (FISH OIL) 1000 MG CAP PO SCH (11:21)
[2022-12-16] MEDS: LACTOBACILLUS ACIDOPHILUS (PROBIOTIC) CAPSULE PO SCH (11:22)
[2022-12-16] MEDS: FAMOTIDINE 20 MG (PEPCID) TABLET PO SCH (11:22)
[2022-12-16] MEDS: VITAMIN D3 25 MCG (1,000 UNITS) TABLET PO SCH (11:22)
[2022-12-16] MEDS: NICOTINE 21 MG (NICODERM) PATCH TD SCH (11:22)
[2022-12-16] MEDS: CALCIUM CARBONATE 600 MG (CALCARB) TAB PO SCH (11:22)
[2022-12-16] MEDS: PANTOPRAZOLE 40 MG (PROTONIX) TAB PO SCH (11:22)
[2022-12-16] MEDS: SENNA W/DOCUSATE (SENOKOT S) TABLET PO SCH ×3 (11:22→23:49)
[2022-12-16] MEDS: LIDOCAINE 4% (SALONPAS) PATCH TOP SCH (11:23)
[2022-12-16] MEDS: LEVOMILNACIPRAN HYDROCHLORIDE 80 MG PO SCH (12:06)
[2022-12-16] MEDS: BIOTIN 10000 MCG PO SCH (12:06)
[2022-12-16] MEDS: CRANBERRY EXTRACT 500 MG PO SCH (12:08)
[2022-12-16] MEDS: CALCITONIN NASAL 200 INTLU/AC (FORTICAL) 3.7 ML BTL SCH (12:08)
[2022-12-16] MEDS: NICOTINE PATCH REMOVAL TP SCH (12:10)
[2022-12-16] MEDS: IBUPROFEN 600 MG (MOTRIN) TAB PO PRN ×2 (13:27→23:43)
[2022-12-16] MEDS: hydrOXYzine (ATARAX) 10 MG TAB PO PRN (13:27)
[2022-12-16] MEDS: ACETAMINOPHEN 325 MG TABLET PO PRN ×2 (13:27→23:43)
[2022-12-16] MEDS: ENOXAPARIN 40 MG/0.4 ML (LOVENOX) SYR SC SCH (17:52)
[2022-12-16 21:26] VITALS: BP 125/77
[2022-12-16] MEDS: GABAPENTIN 300 MG (NEURONTIN) CAP PO SCH ×2 (23:45)
[2022-12-17] MEDS: hydrOXYzine (ATARAX) 10 MG TAB PO PRN ×2 (04:56→16:13)
[2022-12-17] MEDS: BACLOFEN 10 MG (LIORESAL) TAB PO SCH ×3 (06:04→18:56)
[2022-12-17] MEDS: IBUPROFEN 600 MG (MOTRIN) TAB PO PRN ×2 (06:05→16:14)
[2022-12-17] MEDS: GABAPENTIN 100 MG (NEURONTIN) CAP PO SCH ×3 (06:05→18:57)
[2022-12-17] MEDS: ACETAMINOPHEN 325 MG TABLET PO PRN ×2 (06:05→16:14)
--- NOTE | 2022-12-17 07:38 | PM&R Progress Note ---
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 12/16/2022: Patient is having some delusions Focusing on different things every day Pain seems to be improved Needs psych follow-up 12/15/2022: Patient with multiple somatic complaints Sodium level 125 Continue to hold Dyazide Focused now on her hearing loss which is out of my scope of expertise 12/14/2022: Pain is improved Supportive care we will continue Wheelchair mobility now that she has doing wheelchair Patient improved 12/13/2022: Patient doing a lot better Walking better Leaned over position when she walks but she remains a fall risk regardless Feels much better No nausea Scopolamine patch improved 12/12/2022: Patient doing a lot better Had emesis after the sodium tablets so we will discontinue that and place scopolamine patch on Multiple somatic complaints 12/11/2022: Patient doing a lot better No pain is reported other than the back Participation is good Slow recovery 12/10/2022: Patient doing well Changed all of her medications to exactly how she takes at home but that varies by the day Pain is controlled Moving around a lot better Still remains fall risk 12/09/2022: Much improved Pain controlled UA normal No falls 12/08/2022: Patient doing a lot better Move around better Fentanyl patch off not as drowsy Changed all medications to which she was taking at home 12/07/2022: Patient doing well Less sedation but will pull off fentanyl patch Able to participate in therapy Checked meds and labs 12/06/2022: Patient doing about the same Was able to work with therapy but in between time she is very confused Pain is somewhat controlled Patient has such severe chronic pain and fibromyalgia and difficulty coping with that pain she will need slow recovery time Review of Systems General: Fatigue, Malaise Objective Exam Vital Signs Vital Signs Date Time Temp Pulse Resp B/P (MAP) Pulse Ox O2 Delivery O2 Flow Rate FiO2 12/17/22 08:00 36.0 65 18 133/63 (86) 98 Room Air 12/12/22 21:00 2.00 Capillary Refill : General Appearance: No Apparent Distress, WD/WN, Chronically ill, Thin, Other (Frail and pale) HEENT: PERRL/EOMI, Normal ENT Inspection, Pharynx Normal Neck: Full Range of Motion, Normal Inspection, Non Tender, Supple, Carotid Bruit Respiratory: Chest Non Tender, Lungs Clear, Normal Breath Sounds, No Accessory Muscle Use, No Respiratory Distress Cardiovascular: Regular Rate, Rhythm, No Edema, No Gallop, No JVD, No Murmur, Normal Peripheral Pulses Gastrointestinal: Normal Bowel Sounds, No Organomegaly, No Pulsatile Mass, Non Tender, Soft Back: CVA Tenderness (L), CVA Tenderness (R), Decreased Range of Motion, Muscle Spasm, Vertebral Tenderness Extremity: Normal Capillary Refill, Normal Inspection, Normal Range of Motion, Non Tender, No Calf Tenderness, No Pedal Edema Neurologic/Psychiatric: Alert, Oriented x3, Normal Mood/Affect, 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 FIM Transfers Therapy Code Descriptions/Definitions Functional [place] Measure: 0=Not Assessed/NA 4=Minimal Assistance 1=Total Assistance 5=Supervision or Setup 2=Maximal Assistance 6=Modified [place] 3=Moderate Assistance 7=Complete IndependenceSCALE: Activities may be completed with or without assistive devices. 4-Gzxekjoexr-zewdwsf completes the activity by him/herself with no assistance from a helper. 5-Set-up or Clean-up Assistance-helper sets up or cleans up; patient completes activity. [place] assists only prior to or following the activity. 4-Supervision or Touching Assistance-helper provides verbal cues and/or touching/steadying and/or contact guard assistance as patient completes activity. Assistance may be provided throughout the activity or intermittently. 3-Partial/Moderate Assistance-helper does LESS THAN HALF the effort. [place] lifts, holds or supports trunk or limbs, but provides less than half the effort. 2-Substantial/Maximal Assistance-helper does MORE THAN HALF the effort. [place] lifts or holds trunk or limbs and provides more than half the effort. 0-Mwyxeaqwn-aaxkvw does ALL the effort. Patient does none of the effort to complete the activity. Or, the assistance of 2 or more helpers is required for the patient to complete the activity. If activity was not attempted, code reason: 7-Patient Refused. 9-Not Applicable-not attempted and the patient did not perform the activity before the current illness, exacerbation or injury. 10-Not Attempted due to Environmental Limitations-(lack of equipment, weather restraints, etc.). 88-Not Attempted due to Medical Conditions or Safety Concerns. Roll Left to Right (QC): 6 Sit to Lying (QC): 6 Sit to Stand (QC): 6 Chair/Iuq-xg-Fvcim Xfer(QC): 5 Car Transfer (QC): 4 Gait Training Does the Patient Walk?: Yes Walk 10 feet (QC): 4 Walk 50 ft with 2 Turns(QC): 4 Walk 150 ft (QC): 4 Walking 10ft/uneven surface-QC: 88 Gait Assistive Device: FWW Wheelchair Training Does the Pt Use a Wheelchair?: Yes Wheel 50 ft with 2 turns (QC): 9 Wheel 150 ft (QC): 9 Type of Wheelchair: Manual Stair Training 1 Step (curb) (QC): 9 4 Steps (QC): 4 12 Steps (QC): 9 Balance Picking up an Object (QC): 3 (Min A) ADL-Treatment Eating (QC): 6 Oral Hygiene (QC): 5 (seated) Bathing Location: Perineal Area Shower/Bathe Self (QC): 5 Upper Body Dressing (QC): 5 Lower Body Dressing (QC): 4 (SBA) On/Off Footwear (QC): 5 Toileting Hygiene (QC): 4 Toilet Transfer (QC): 4 Assessment/Plan Assessment and Plan Assess & Plan/Chief Complaint Assessment: Compression fractures T11-L2 Fall Indwelling catheter Fibromyalgia Bipolar disorder UTIs no evidence of acute UTI here UA sterile in and out cath is normal Acute encephalopathy due to medications Tremors 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 Somatic complaints Plan: Supportive care Pain control Lynch catheter to remain for 1 more day Home meds 12/06/2022: Updated sister at the bedside Monitor confusion 12/07/2022: Supportive care Monitor closely 12/08/2022: Improved pain DC fentanyl patch 12/09/2022: UA normal 12/10/2022: Fall risk remains Aggressive rehab 12/11/2022: Supportive care Monitor closely 12/12/2022: Supportive care DC salt tablets 12/13/2022: Continue limiting fluid 12/14/2022: Wheelchair mobility Check labs in the morning 12/15/2022: Supportive care Discharge on Sunday12/16/2022: Supportive care 12/17/2022: work-up low sodium Assure fluid restriction compliance (1) Compression fracture of L2 Status: Acute (2) Lumbar radiculopathy Status: Acute (3) Debility Status: Acute GABRIEL VIRGEN DO Dec 17, 2022 07:38
[2022-12-17 08:00] VITALS: BP 133/63
[2022-12-17 08:05] LABS: BASOPHILS # (AUTO) 0.1 10^3/uL (0.0-0.1); BASOPHILS % (AUTO) 1 % (0-10); EOSINOPHILS % (AUTO) 0 % (0-10); HEMATOCRIT 34 % (35-52); HEMOGLOBIN 11.7 g/dL (11.5-16.0); LYMPHOCYTES # (AUTO) 2.6 10^3/uL (1.0-4.0); LYMPHOCYTES % (AUTO) 24 % (12-44); MEAN CORPUSCULAR HEMOGLOBIN 31 pg (25-34); MEAN CORPUSCULAR HGB CONC 34 g/dL (32-36); MEAN CORPUSCULAR VOLUME 89 fL (80-99); MEAN PLATELET VOLUME 9.7 fL (9.0-12.2); MONOCYTES # (AUTO) 1.2 10^3/uL (0.0-1.0); MONOCYTES % (AUTO) 11 % (0-12); NEUTROPHILS # (AUTO) 6.8 10^3/uL (1.8-7.8); NEUTROPHILS % (AUTO) 63 % (42-75); PLATELET COUNT 335 10^3/uL (130-400); WHITE BLOOD COUNT 10.8 10^3/uL (4.3-11.0)
[2022-12-17 08:10] LABS: ALBUMIN 3.6 GM/DL (3.2-4.5); POTASSIUM 4.4 MMOL/L (3.6-5.0)
[2022-12-17 08:11] LABS: CALCIUM 8.7 MG/DL (8.5-10.1)
[2022-12-17 08:12] LABS: TOTAL PROTEIN 6.4 GM/DL (6.4-8.2)
[2022-12-17 08:14] LABS: BILIRUBIN,TOTAL 0.3 MG/DL (0.1-1.0)
[2022-12-17 08:16] LABS: CREATININE SERUM 0.75 MG/DL (0.60-1.30)
[2022-12-17 08:45] LABS: VALPROIC ACID 69.7 UG/ML (50.0-100.0)
--- NOTE | 2022-12-17 09:22 | Diagnostic Imaging Report ---
EXAM: CHEST 1 VIEW, AP/PA ONLY INDICATION: Cough. COMPARISON: 12/04/2022. FINDINGS: Low lung volumes. Normal heart size and central pulmonary vascularity. Left perihilar airspace consolidation is new compared to the prior exam. No pleural effusion or pneumothorax. No acute osseous findings. Epidural spinal stimulator. IMPRESSION: Low lung volumes with new left perihilar airspace consolidation which could be due to atelectasis or infiltrate. Dictated by: Dictated on workstation # [id number]
[2022-12-17] MEDS: CALCIUM CARBONATE 600 MG (CALCARB) TAB PO SCH (10:03)
[2022-12-17] MEDS: CRANBERRY EXTRACT 500 MG PO SCH (10:03)
[2022-12-17] MEDS: NS IV 1000 ML 1,000 ML IV SCH (10:04)
[2022-12-17] MEDS: BIOTIN 10000 MCG PO SCH (10:04)
[2022-12-17] MEDS: LEVOMILNACIPRAN HYDROCHLORIDE 80 MG PO SCH (10:05)
[2022-12-17] MEDS: DOCUSATE SODIUM 100 MG (COLACE) CAP PO SCH ×2 (10:05→21:02)
[2022-12-17] MEDS: SENNA W/DOCUSATE (SENOKOT S) TABLET PO SCH ×2 (10:05→21:02)
[2022-12-17 10:06] LABS: BILIRUBIN,URINE NEGATIVE (NEGATIVE); CLARITY,URINE CLOUDY; COLOR,URINE YELLOW; GLUCOSE, URINE (UA) NEGATIVE (NEGATIVE); KETONES,URINE NEGATIVE (NEGATIVE); LEUKOCYTE ESTERASE ,URINE 3+ (NEGATIVE); NITRITE,URINE POSITIVE (NEGATIVE); PH,URINE 7.5 (5-9); PROTEIN,URINE NEGATIVE (NEGATIVE)
[2022-12-17] MEDS: FAMOTIDINE 20 MG (PEPCID) TABLET PO SCH (10:06)
[2022-12-17] MEDS: LACTOBACILLUS ACIDOPHILUS (PROBIOTIC) CAPSULE PO SCH (10:06)
[2022-12-17] MEDS: OMEGA 3 (FISH OIL) 1000 MG CAP PO SCH (10:06)
[2022-12-17] MEDS: DICYCLOMINE 10 MG (BENTYL) CAP PO SCH ×3 (10:06→21:00)
[2022-12-17] MEDS: DIVALPROEX 250 MG DELAYED RELEASE (DEPAKOTE) TAB PO SCH ×2 (10:06→21:00)
[2022-12-17] MEDS: PANTOPRAZOLE 40 MG (PROTONIX) TAB PO SCH (10:07)
[2022-12-17] MEDS: NICOTINE 21 MG (NICODERM) PATCH TD SCH (10:07)
[2022-12-17] MEDS: buPROPion SR 150 MG (WELLBUTRIN SR) TAB PO SCH (10:07)
[2022-12-17] MEDS: VITAMIN D3 25 MCG (1,000 UNITS) TABLET PO SCH (10:07)
[2022-12-17] MEDS: LIDOCAINE 4% (SALONPAS) PATCH TOP SCH (10:07)
[2022-12-17] MEDS: DICLOFENAC 1% GEL 100 GM (VOLTAREN) TUBE TOP SCH ×4 (10:08→21:01)
[2022-12-17] MEDS: NICOTINE PATCH REMOVAL TP SCH (10:09)
[2022-12-17 10:14] LABS: BACTERIA,URINE LARGE /HPF; SQUAMOUS EPITHELIAL CELL,UR RARE /HPF; WBC,URINE >100 /HPF
[2022-12-17] MEDS: CEFEPIME INJECTION 1,000 MG in NS (IVPB) 50 ML IV SCH ×2 (15:27→21:11)
[2022-12-17] MEDS: ENOXAPARIN 40 MG/0.4 ML (LOVENOX) SYR SC SCH (18:57)
[2022-12-17 20:00] VITALS: BP 110/56
[2022-12-17] MEDS: GABAPENTIN 300 MG (NEURONTIN) CAP PO SCH (20:59)
[2022-12-17] MEDS: MONTELUKAST 10 MG (SINGULAIR) TAB PO SCH (21:00)
[2022-12-17] MEDS: meTOproloL SUCCINATE 50 MG (TOPROL XL) TAB PO SCH (21:00)
[2022-12-17] MEDS: LIDOCAINE PATCH REMOVAL TP SCH (21:01)
[2022-12-18] MEDS: IBUPROFEN 600 MG (MOTRIN) TAB PO PRN ×3 (00:16→12:43)
[2022-12-18] MEDS: BACLOFEN 10 MG (LIORESAL) TAB PO SCH ×4 (00:16→17:05)
[2022-12-18] MEDS: ACETAMINOPHEN 325 MG TABLET PO PRN ×3 (00:16→12:43)
[2022-12-18] MEDS: GABAPENTIN 100 MG (NEURONTIN) CAP PO SCH ×4 (00:16→17:05)
[2022-12-18 05:53] LABS: BASOPHILS # (AUTO) 0.1 10^3/uL (0.0-0.1); BASOPHILS % (AUTO) 1 % (0-10); EOSINOPHILS % (AUTO) 0 % (0-10); HEMATOCRIT 32 % (35-52); LYMPHOCYTES # (AUTO) 2.5 10^3/uL (1.0-4.0); LYMPHOCYTES % (AUTO) 19 % (12-44); MEAN CORPUSCULAR HEMOGLOBIN 31 pg (25-34); MEAN CORPUSCULAR HGB CONC 34 g/dL (32-36); MEAN CORPUSCULAR VOLUME 91 fL (80-99); MEAN PLATELET VOLUME 9.8 fL (9.0-12.2); MONOCYTES # (AUTO) 1.6 10^3/uL (0.0-1.0); MONOCYTES % (AUTO) 12 % (0-12); NEUTROPHILS # (AUTO) 8.7 10^3/uL (1.8-7.8); NEUTROPHILS % (AUTO) 66 % (42-75); PLATELET COUNT 339 10^3/uL (130-400)
[2022-12-18] MEDS: CEFEPIME INJECTION 1,000 MG in NS (IVPB) 50 ML IV SCH ×3 (06:17→21:14)
[2022-12-18 06:20] LABS: ALBUMIN 3.2 GM/DL (3.2-4.5); BILIRUBIN,TOTAL 0.2 MG/DL (0.1-1.0); CALCIUM 8.6 MG/DL (8.5-10.1); CREATININE SERUM 0.69 MG/DL (0.60-1.30); POTASSIUM 4.1 MMOL/L (3.6-5.0); TOTAL PROTEIN 5.8 GM/DL (6.4-8.2)
[2022-12-18] MEDS: MULTIVIT W/MINERALS TAB (THERAGRAN M) PO SCH ×2 (06:53→09:08)
[2022-12-18] MEDS: NS IV 1000 ML 1,000 ML IV SCH (07:04)
[2022-12-18 08:00] VITALS: BP 118/57
--- NOTE | 2022-12-18 08:35 | Occupational Ther Daily Note ---
OT Current Status-Daily Note Subjective Pt found in room in chair, agreed to therapy, alert and cooperative Co-tx OT/ST ([id number]) ADL-Treatment Pt was sitting in chair upon arrival, agreed to therapy. Pt ambulated with FWW SBA to shower bench in bathroom. Pt doffed clothes and sat, completed shower and bathed self with supervision. Pt transferred out of shower into wheelchair, after drying and donning brace. Pt completed upper and lower body dressing with set up assist. Pt required multiple verbal cues to lock wheelchair brakes and to keep walker close by when using it. Therapy Code Descriptions/Definitions Functional [place] Measure: 0=Not Assessed/NA 4=Minimal Assistance 1=Total Assistance 5=Supervision or Setup 2=Maximal Assistance 6=Modified [place] 3=Moderate Assistance 7=Complete IndependenceSCALE: Activities may be completed with or without assistive devices. 4-Wvijodffiy-xjzowyw completes the activity by him/herself with no assistance from a helper. 5-Set-up or Clean-up Assistance-helper sets up or cleans up; patient completes activity. [place] assists only prior to or following the activity. 4-Supervision or Touching Assistance-helper provides verbal cues and/or touching/steadying and/or contact guard assistance as patient completes activity. Assistance may be provided throughout the activity or intermittently. 3-Partial/Moderate Assistance-helper does LESS THAN HALF the effort. [place] lifts, holds or supports trunk or limbs, but provides less than half the effort. 2-Substantial/Maximal Assistance-helper does MORE THAN HALF the effort. [place] lifts or holds trunk or limbs and provides more than half the effort. 1-Dofmjwhoz-yczumk does ALL the effort. Patient does none of the effort to complete the activity. Or, the assistance of 2 or more helpers is required for the patient to complete the activity. If activity was not attempted, code reason: 7-Patient Refused. 9-Not Applicable-not attempted and the patient did not perform the activity before the current illness, exacerbation or injury. 10-Not Attempted due to Environmental Limitations-(lack of equipment, weather restraints, etc.). 88-Not Attempted due to Medical Conditions or Safety Concerns. Eating (QC): 6 Oral Hygiene (QC): 5 Bathing Location: L Arm, R Arm, L Upper Leg, R Upper Leg, L Lower Leg (including foot), R Lower Leg (including foot), Chest, Abdomen, Buttocks, Perineal Area Shower/Bathe Self (QC): 4 Upper Body Dressing (QC): 5 Lower Body Dressing (QC): 5 On/Off Footwear: 5 Toileting Hygiene (QC): 5 Toilet Transfer (QC): 5 Education OT Patient Education: Home exercise program, Instructions don/doff splint/brace, Modified ADL techniques, Progress toward Goal/Update tx plan, Purpose of tx/functional activities, Safety issues, Transfer techniques Teaching Recipient: Patient Teaching Methods: Demonstration, Discussion Response to Teaching: Verbalize Understanding, Return Demonstration BIMS CAM BIMS Expression of Ideas and Wants: Without Difficulty Understanding Verbal Content: Understands Brief Interview/Mental Status: Yes IRF MANJU BIMS: IRF MANJU BIMS Response (Comments) Value Repitition of Three Words Three 3 Recalls Socks Yes, No Cue Required 2 Recalls Blue Yes, No Cue Required 2 Recalls Bed Yes, No Cue Required 2 Year Correct 3 Month Accurate Within 5 Days 2 Day Correct 1 Total 15 Patient Normally Able to Recal: Current Session, Location of own room, That he/she in a hsp Should Staff Asses. Mental St.: No CAM Mental Status Change/Baseline: 0 Inattention: 2 Disorganized thinkin Altered level of consciousness: 0 OT Short Term Goals Short Term Goals Time Frame: Dec 06, 2022 Eatin Oral hygiene: 6 Toileting hygiene: 4 OT Jail Goals Swing Manager Goals Acute change in mental status: 0 Inattention: 2 Disorganized thinkin Altered level of consciousness: 0 Eating (QC): 6 (met) Oral Hygiene (QC): 6 (not met) Toileting Hygiene (QC): 6 (w/ AD) Shower/Bathe Self (QC): 4 (met) Upper Body Dressing (QC): 5 (met) Lower Body Dressing (QC): 5 (met) On/Off Footwear (QC): 5 (met) 1=Demonstrate adherence to instructed precautions during ADL tasks. 2=Patient will verbalize/demonstrate understanding of assistive devices/modifications for ADL. 3=Patient will improve strength/tolerance for activity to enable patient to perform ADL's. OT Education/Plan Problem List/Assessment Assessment: Decreased Activ Tolerance, Decreased Safety Aware, Decreased UE Strength Discharge Recommendations Plan/Recommendations: Continue POC Treatment Plan/Plan of Care Patient would benefit from OT for education, treatment and training to promote independence in ADL's, mobility, safety and/or upper extremity function for ADL's. Plan of Care: ADL Retraining, Cognitive Retraining, Concurrent Therapy, Functional Mobility, Group Exercise/Act as Ind, Orthotic Fitting/Training, UE Funct Exercise/Act, UE Neuromus Re-Ed/Coord Treatment Duration: Jan 05, 2023 Frequency: At least 5 of 7 days/Wk (IRF) Estimated Hrs Per Day: 1.5 hours per day Agreement: Yes Rehab Potential: Fair Time Start Time: 07:45 Stop Time: 09:00 DATE: Dec 18, 2022 Total Time Billed (hr/min): 75 Billed Treatment Time 1 visit ADL 3 (45) FA 2 (30) Co-Tx OT/ST [id number] (30 min) Shira Gamino COTA Dec 18, 2022 08:35
[2022-12-18] MEDS: CRANBERRY EXTRACT 500 MG PO SCH (09:06)
[2022-12-18] MEDS: DICLOFENAC 1% GEL 100 GM (VOLTAREN) TUBE TOP SCH ×4 (09:06→21:15)
[2022-12-18] MEDS: LEVOMILNACIPRAN HYDROCHLORIDE 80 MG PO SCH (09:07)
[2022-12-18] MEDS: BIOTIN 10000 MCG PO SCH (09:07)
[2022-12-18] MEDS: buPROPion SR 150 MG (WELLBUTRIN SR) TAB PO SCH (09:08)
[2022-12-18] MEDS: LACTOBACILLUS ACIDOPHILUS (PROBIOTIC) CAPSULE PO SCH (09:08)
[2022-12-18] MEDS: FAMOTIDINE 20 MG (PEPCID) TABLET PO SCH (09:08)
[2022-12-18] MEDS: hydrOXYzine (ATARAX) 10 MG TAB PO PRN ×2 (09:08→21:24)
[2022-12-18] MEDS: DOCUSATE SODIUM 100 MG (COLACE) CAP PO SCH ×2 (09:08→21:17)
[2022-12-18] MEDS: PANTOPRAZOLE 40 MG (PROTONIX) TAB PO SCH (09:08)
[2022-12-18] MEDS: OMEGA 3 (FISH OIL) 1000 MG CAP PO SCH (09:08)
[2022-12-18] MEDS: VITAMIN D3 25 MCG (1,000 UNITS) TABLET PO SCH (09:08)
[2022-12-18] MEDS: DIVALPROEX 250 MG DELAYED RELEASE (DEPAKOTE) TAB PO SCH ×2 (09:08→21:15)
[2022-12-18] MEDS: CALCIUM CARBONATE 600 MG (CALCARB) TAB PO SCH (09:08)
[2022-12-18] MEDS: SENNA W/DOCUSATE (SENOKOT S) TABLET PO SCH ×2 (09:09→21:16)
[2022-12-18] MEDS: NICOTINE PATCH REMOVAL TP SCH (09:09)
[2022-12-18] MEDS: DICYCLOMINE 10 MG (BENTYL) CAP PO SCH ×3 (09:09→21:14)
[2022-12-18] MEDS: LIDOCAINE 4% (SALONPAS) PATCH TOP SCH (09:09)
[2022-12-18] MEDS: NICOTINE 21 MG (NICODERM) PATCH TD SCH (09:09)
--- NOTE | 2022-12-18 11:47 | PM&R Progress Note ---
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 when no additional fluid consumed This confirms the psychogenic polydipsia when she received her wheelchair and was mobile she was drinking water out of the faucet (beyond the 1000 cc of fluid restriction and she is constantly talking about fluid intake Urine culture pending IV fluids maintained Discussed inpatient [facility] treatment she is not willing to do that 12/17/2022: Hyponatremia worse Patient has been drinking water out of the restrictions because she was mobilizing with wheelchair Reviewed all labs and meds and cannot see one in particular that is causing the hyponatremia Fluid restriction initiated Refuses salt tablets 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 12/16/2022: Patient is having some delusions Focusing on different things every day Pain seems to be improved Needs psych follow-up 12/15/2022: Patient with multiple somatic complaints Sodium level 125 Continue to hold Dyazide Focused now on her hearing loss which is out of my scope of expertise 12/14/2022: Pain is improved Supportive care we will continue Wheelchair mobility now that she has doing wheelchair Patient improved 12/13/2022: Patient doing a lot better Walking better Leaned over position when she walks but she remains a fall risk regardless Feels much better No nausea Scopolamine patch improved 12/12/2022: Patient doing a lot better Had emesis after the sodium tablets so we will discontinue that and place scopolamine patch on Multiple somatic complaints 12/11/2022: Patient doing a lot better No pain is reported other than the back Participation is good Slow recovery 12/10/2022: Patient doing well Changed all of her medications to exactly how she takes at home but that varies by the day Pain is controlled Moving around a lot better Still remains fall risk 12/09/2022: Much improved Pain controlled UA normal No falls 12/08/2022: Patient doing a lot better Move around better Fentanyl patch off not as drowsy Changed all medications to which she was taking at home 12/07/2022: Patient doing well Less sedation but will pull off fentanyl patch Able to participate in therapy Checked meds and labs 12/06/2022: Patient doing about the same Was able to work with therapy but in between time she is very confused Pain is somewhat controlled Patient has such severe chronic pain and fibromyalgia and difficulty coping with that pain she will need slow recovery time Review of Systems General: Fatigue, Malaise Objective Exam Vital Signs Vital Signs Date Time Temp Pulse Resp B/P (MAP) Pulse Ox O2 Delivery O2 Flow Rate FiO2 12/18/22 21:00 99 Room Air 12/18/22 19:58 36.9 85 16 133/67 (89) Capillary Refill : General Appearance: No Apparent Distress, WD/WN, Chronically ill, Thin, Other (Frail and pale) HEENT: PERRL/EOMI, Normal ENT Inspection, Pharynx Normal Neck: Full Range of Motion, Normal Inspection, Non Tender, Supple, Carotid Bruit Respiratory: Chest Non Tender, Lungs Clear, Normal Breath Sounds, No Accessory Muscle Use, No Respiratory Distress Cardiovascular: Regular Rate, Rhythm, No Edema, No Gallop, No JVD, No Murmur, Normal Peripheral Pulses Gastrointestinal: Normal Bowel Sounds, No Organomegaly, No Pulsatile Mass, Non Tender, Soft Back: CVA Tenderness (L), CVA Tenderness (R), Decreased Range of Motion, Muscle Spasm, Vertebral Tenderness Extremity: Normal Capillary Refill, Normal Inspection, Normal Range of Motion, Non Tender, No Calf Tenderness, No Pedal Edema Neurologic/Psychiatric: Alert, Oriented x3, Normal Mood/Affect, regional education manager II-XII Norm as Tested, Abnormal Gait, Depressed Affect, Motor Weakness ( generalized especially lower extremities) Skin: Normal Color, Warm/Dry Lymphatic: No Adenopathy Results/Procedures Lab Laboratory Tests 12/19/22 05:07 Patient resulted labs reviewed. FIM Transfers Therapy Code Descriptions/Definitions Functional [place] Measure: 0=Not Assessed/NA 4=Minimal Assistance 1=Total Assistance 5=Supervision or Setup 2=Maximal Assistance 6=Modified [place] 3=Moderate Assistance 7=Complete IndependenceSCALE: Activities may be completed with or without assistive devices. 2-Jbrborhjbc-mljtnep completes the activity by him/herself with no assistance from a helper. 5-Set-up or Clean-up Assistance-helper sets up or cleans up; patient completes activity. [place] assists only prior to or following the activity. 4-Supervision or Touching Assistance-helper provides verbal cues and/or touching/steadying and/or contact guard assistance as patient completes activity. Assistance may be provided throughout the activity or intermittently. 3-Partial/Moderate Assistance-helper does LESS THAN HALF the effort. [place] lifts, holds or supports trunk or limbs, but provides less than half the effort. 2-Substantial/Maximal Assistance-helper does MORE THAN HALF the effort. [place] l ifts or holds trunk or limbs and provides more than half the effort. 2-Ydsbxvbew-fsvybo does ALL the effort. Patient does none of the effort to complete the activity. Or, the assistance of 2 or more helpers is required for the patient to complete the activity. If activity was not attempted, code reason: 7-Patient Refused. 9-Not Applicable-not attempted and the patient did not perform the activity before the current illness, exacerbation or injury. 10-Not Attempted due to Environmental Limitations-(lack of equipment, weather restraints, etc.). 88-Not Attempted due to Medical Conditions or Safety Concerns. Roll Left to Right (QC): 6 Sit to Lying (QC): 6 Sit to Stand (QC): 6 Chair/Klo-qt-Mocgs Xfer(QC): 5 Car Transfer (QC): 4 Gait Training Does the Patient Walk?: Yes Walk 10 feet (QC): 4 Walk 50 ft with 2 Turns(QC): 4 Walk 150 ft (QC): 4 Walking 10ft/uneven surface-QC: 88 Gait Assistive Device: FWW Wheelchair Training Does the Pt Use a Wheelchair?: Yes Wheel 50 ft with 2 turns (QC): 9 Wheel 150 ft (QC): 9 Type of Wheelchair: Manual Stair Training 1 Step (curb) (QC): 9 4 Steps (QC): 4 12 Steps (QC): 9 Balance Picking up an Object (QC): 3 (Min A) ADL-Treatment Eating (QC): 6 Oral Hygiene (QC): 5 Bathing Location: L Arm, R Arm, L Upper Leg, R Upper Leg, L Lower Leg (including foot), R Lower Leg (including foot), Chest, Abdomen, Buttocks, Perineal Area Shower/Bathe Self (QC): 5 Upper Body Dressing (QC): 5 Lower Body Dressing (QC): 5 On/Off Footwear (QC): 6 Toileting Hygiene (QC): 5 Toilet Transfer (QC): 5 Assessment/Plan Assessment and Plan Assess & Plan/Chief Complaint Assessment: Compression fractures T11-L2 Fall Indwelling catheter Fibromyalgia Bipolar disorder UTIs no evidence of acute UTI here UA sterile in and out cath is normal Acute encephalopathy due to medications Tremors 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 Somatic complaints Plan: Supportive care Pain control Lynch catheter to remain for 1 more day Home meds 12/06/2022: Updated sister at the bedside Monitor confusion 12/07/2022: Supportive care Monitor closely 12/08/2022: Improved pain DC fentanyl patch 12/09/2022: UA normal 12/10/2022: Fall risk remains Aggressive rehab 12/11/2022: Supportive care Monitor closely 12/12/2022: Supportive care DC salt tablets 12/13/2022: Continue limiting fluid 12/14/2022: Wheelchair mobility Check labs in the morning 12/15/2022: Supportive care Discharge on Sunday12/16/2022: Supportive care 12/17/2022: work-up low sodium Assure fluid restriction compliance 12/18/2022: IV fluid IV antibiotics Await urine culture Really needs inpatient psych treatment but not willing (1) Compression fracture of L2 Status: Acute (2) Lumbar radiculopathy Status: Acute (3) Debility Status: Acute GABRIEL VIRGEN DO Dec 18, 2022 11:47
--- NOTE | 2022-12-18 12:56 | Speech Therapy Daily Note ---
Speech Daily Progress Note Subjective Date Seen by Provider: Dec 18, 2022 Time Seen by Provider: 08:30 Pt cotreated with occupational therapy this date to address functional sequencing of daily living tasks and divided attention. Pt is concerned about a family meeting occurring without her today. Therapist talks to social work professor and there is not a family meeting planned for this date. Pt requires encouragement to participate in therapy. Pain Numeric Pain Scale: 4 Location: Lower Location Body Site: Back Objective Pt completes functional sequencing tasks with 100% accuracy with min cues. Pt was getting dressed and starts putting on her shoes before her pants. Pt is able to self correct. Pt does sequencing of pegs with 100% accuracy. Pt completes divided attention task with 70% accuracy, requiring cuing to maintain both a motor and cognitive function. Assessment Assessment Current Status: Fair Progress Treatment Plan Continue Plan of Care Speech Short Term Goals Short Term Goals Short Term Goals 1. The patient will demonstrate memory exercises with 80% accuracy and mild clinician verbal cueing. 2. The patient will demonstrate safe swallowing strategies with 90% accuracy and mild clinician verbal cueing. Time Frame-STG: One Week. Speech Dye Tub Tender Goals Dye Tub Tender Goals 1. The patient will demonstrate improved cognitive linguistic communication for safe discharge to the least restrictive environment. 2. The patient will tolerate the least restrictive diet consistency without s/s of suspected aspiration. Time Frame: Two Weeks. Speech-Plan Patient/Family Goals Patient/Family Goals: Pt's goal is to return home with a caregiver. Treatment Plan Speech Therapy Treatment Plan: Continue Plan of Care Treatment Duration: Dec 16, 2022 Frequency: Modified Program (IRF) (Four to five times per week.) Estimated Hrs Per Day: .5 hour per day Rehab Potential: Fair Safety Risks/Education Teaching Recipient: Patient Teaching Methods: Discussion Response to Teaching: Verbalize Understanding, Reinforcement Needed Education Topics Provided: Pt educated on purpose of therapy tasks this date and purpose of cotreat. Pt was receptive and verbalized understanding, but will likely require reinforcement. Time Speech Therapy Time In: 08:30 Speech Therapy Time Out: 09:00 DATE: Dec 18, 2022 Total Billed Time: 30 Billed Treatment Time S/L TX cotreat with OT Ting Hyde Speech Therapy Dec 18, 2022 12:56
--- NOTE | 2022-12-18 12:58 | Physical Therapy Daily Note ---
PT Daily Note-Current Subjective pt in bed upon arrival and willing for therapy. pt gives no report of pain. pt was left in recliner with IV and call light and all needs met. Pain Section J - Health Conditions 1. Rarely or not at all 2. Occasionally 3. Frequently 4. Almost constantly 8. Unable to answer Pain Effect on Sleep: 2 Pain Interference with Therapy: 3 Pain Interference w/Day-to-Day: 2 Mental Status Patient Orientation: Person, Place, Situation Transfers SCALE: Activities may be completed with or without assistive devices. 5-Ecgwfrlkib-vihyxsz completes the activity by him/herself with no assistance from a helper. 5-Set-up or Clean-up Assistance-helper sets up or cleans up; patient completes activity. [place] assists only prior to or following the activity. 4-Supervision or Touching Assistance-helper provides verbal cues and/or touching/steadying and/or contact guard assistance as patient completes activity. Assistance may be provided throughout the activity or intermittently. 3-Partial/Moderate Assistance-helper does LESS THAN HALF the effort. [place] lif ts, holds or supports trunk or limbs, but provides less than half the effort. 2-Substantial/Maximal Assistance-helper does MORE THAN HALF the effort. [place] lifts or holds trunk or limbs and provides more than half the effort. 3-Mkprfhoae-hpbrsn does ALL the effort. Patient does none of the effort to complete the activity. Or, the assistance of 2 or more helpers is required for the patient to complete the activity. If activity was not attempted, code reason: 7-Patient Refused. 9-Not Applicable-not attempted and the patient did not perform the activity before the current illness, exacerbation or injury. 10-Not Attempted due to Environmental Limitations-(lack of equipment, weather restraints, etc.). 88-Not Attempted due to Medical Conditions or Safety Concerns. Weight Bearing Right Lower Extremity: Right Full Weight Bearing Left Lower Extremity: Left Full Weight Bearing Exercises Seated Therapy Exercises: Sit to stand, Long arc quads, Shoulder Abd, Hamstring Curls, Hip abd/add, Glut set Standing: Hip Abduction, Heel/toe raises, Marching, Sit to Stand Treatments PT is able to preform sitting and standing there-ex for 3 sets of 15 in both sitting and standing. pt is requires rest in between standing ther-ex secondary to fatigue. pt is able to preform 5 stairs and car transfer with CGA for increased balance and VC for sequencing and safety this day. pt is able to ambulate 45ft x 2 with CGA and rest after each ambulation session this day. Assessment Current Status: Good Progress PT Residential Goals Residential Goals PT Possum Trapper Goals Time Frame: Dec 15, 2022 Roll Left & Right (QC): 4 (Pt will be SBA for functional mobility with the FWW to safely d/c home with assistance. ) Sit to Lying (QC): 4 (Pt will be SBA for functional mobility with the FWW to safely d/c home with assistance. ) Lying-Sitting on Side/Bed(QC): 4 (Pt will be SBA for functional mobility with the FWW to safely d/c home with assistance. ) Sit to Stand (QC): 4 (Pt will be SBA for functional mobility with the FWW to safely d/c home with assistance. ) Chair/Pzw-fp-Kikfd Xfer(QC): 4 (Pt will be SBA for functional mobility with the FWW to safely d/c home with assistance. ) Toilet Transfer (QC): 4 (Pt will be SBA for functional mobility with the FWW to safely d/c home with assistance. ) Car Transfer (QC): 4 (Pt will be SBA for functional mobility with the FWW to safely d/c home with assistance. ) Does the Patient Walk: Yes Walk 10 feet (QC): 4 (Pt will be SBA for functional mobility with the FWW to safely d/c home with assistance. ) Walk 50ft with 2 Turns (QC): 4 (Pt will be SBA for functional mobility with the FWW to safely d/c home with assistance. ) Walk 150 ft (QC): 4 (Pt will be SBA for functional mobility with the FWW to safely d/c home with assistance. ) Walking 10ft on Uneven Surface: 4 (Pt will be SBA for functional mobility with the FWW to safely d/c home with assistance. ) 1 Step (curb) (QC): 9 4 Steps (QC): 9 12 Steps (QC): 9 Picking up an Object (QC): 4 (Pt will be SBA for functional mobility with the FWW to safely d/c home with assistance. ) Does the Pt use WC or Scooter?: Yes Wheel 50 feet with 2 turns (QC: 6 (Ind with w/c mobility ) Type: Manual Wheel 150 feet: 6 (Ind with w/c mobility ) Type: Manual PT Plan Treatment/Plan Treatment Plan: Continue Plan of Care Treatment Plan: Bed Mobility, Concurrent Therapy, Education, Functional Activity [place], Functional Strength, Group Therapy, Gait, Safety, Therapeutic Exercise, Transfers Treatment Duration: Dec 15, 2022 Frequency: At least 5 of 7 days/Wk (IRF) Estimated Hrs Per Day: 1.5 hours per day Patient and/or Family Agrees t: Yes Time Time In: 1030 Time Out: 1200 DATE: Dec 18, 2022 Total Billed Treatment Time: 90 Total Billed Treatment 1 ex x 3 FA x [address] AVIATION ELECTRONICS TECHNICIAN Dec 18, 2022 12:58
[2022-12-18] MEDS: ENOXAPARIN 40 MG/0.4 ML (LOVENOX) SYR SC SCH (17:06)
[2022-12-18 19:58] VITALS: BP 133/67
[2022-12-18] MEDS: meTOproloL SUCCINATE 50 MG (TOPROL XL) TAB PO SCH (21:14)
[2022-12-18] MEDS: GABAPENTIN 300 MG (NEURONTIN) CAP PO SCH (21:14)
[2022-12-18] MEDS: MONTELUKAST 10 MG (SINGULAIR) TAB PO SCH (21:14)
[2022-12-18] MEDS: LIDOCAINE PATCH REMOVAL TP SCH (21:16)
[2022-12-18] MEDS: ESTRADIOL VAGINAL CREAM 42.5 GM (ESTRACE) VG SCH (21:16)
[2022-12-19] MEDS: GABAPENTIN 100 MG (NEURONTIN) CAP PO SCH ×4 (00:59→17:51)
[2022-12-19] MEDS: IBUPROFEN 600 MG (MOTRIN) TAB PO PRN ×3 (00:59→20:43)
[2022-12-19] MEDS: ACETAMINOPHEN 325 MG TABLET PO PRN ×3 (00:59→20:44)
[2022-12-19] MEDS: BACLOFEN 10 MG (LIORESAL) TAB PO SCH ×4 (00:59→17:51)
[2022-12-19 05:25] LABS: BASOPHILS # (AUTO) 0.1 10^3/uL (0.0-0.1); BASOPHILS % (AUTO) 0 % (0-10); EOSINOPHILS % (AUTO) 0 % (0-10); HEMATOCRIT 33 % (35-52); LYMPHOCYTES # (AUTO) 2.1 10^3/uL (1.0-4.0); LYMPHOCYTES % (AUTO) 17 % (12-44); MEAN CORPUSCULAR HEMOGLOBIN 31 pg (25-34); MEAN CORPUSCULAR HGB CONC 34 g/dL (32-36); MEAN CORPUSCULAR VOLUME 91 fL (80-99); MEAN PLATELET VOLUME 9.5 fL (9.0-12.2); MONOCYTES # (AUTO) 1.1 10^3/uL (0.0-1.0); MONOCYTES % (AUTO) 9 % (0-12); NEUTROPHILS # (AUTO) 9.1 10^3/uL (1.8-7.8); NEUTROPHILS % (AUTO) 73 % (42-75); PLATELET COUNT 337 10^3/uL (130-400); WHITE BLOOD COUNT 12.5 10^3/uL (4.3-11.0)
[2022-12-19 05:34] LABS: POTASSIUM 3.8 MMOL/L (3.6-5.0)
[2022-12-19 05:36] LABS: CALCIUM 8.4 MG/DL (8.5-10.1)
[2022-12-19 05:37] LABS: TOTAL PROTEIN 5.5 GM/DL (6.4-8.2)
[2022-12-19 05:38] LABS: BILIRUBIN,TOTAL 0.2 MG/DL (0.1-1.0)
[2022-12-19 05:40] LABS: CREATININE SERUM 0.58 MG/DL (0.60-1.30)
[2022-12-19] MEDS: NS IV 1000 ML 1,000 ML IV SCH (06:02)
[2022-12-19] MEDS: CEFEPIME INJECTION 1,000 MG in NS (IVPB) 50 ML IV SCH ×2 (06:04→14:07)
--- NOTE | 2022-12-19 07:50 | Occupational Ther Daily Note ---
OT Current Status-Daily Note Subjective pt sitting up in chair upon arrival, agreed to therapy. alert and cooperative. ADL-Treatment Pt retrieved clothing wheelchair level independently, and completed upper (set up A) and lower body dressing while seated on the bed in room with supervision for safety. Pt then completed grooming and oral hygiene standing with SBA for safe. Pt completed toilet transfer and toilet hygiene with supervision for safety. Pt was left in wheelchair in room, all needs met, call light and phone within reach. Therapy Code Descriptions/Definitions Functional [place] Measure: 0=Not Assessed/NA 4=Minimal Assistance 1=Total Assistance 5=Supervision or Setup 2=Maximal Assistance 6=Modified [place] 3=Moderate Assistance 7=Complete IndependenceSCALE: Activities may be completed with or without assistive devices. 3-Jdpkkjxtsq-buvkdiv completes the activity by him/herself with no assistance from a helper. 5-Set-up or Clean-up Assistance-helper sets up or cleans up; patient completes activity. [place] assists only prior to or following the activity. 4-Supervision or Touching Assistance-helper provides verbal cues and/or touching/steadying and/or contact guard assistance as patient completes activity. Assistance may be provided throughout the activity or intermittently. 3-Partial/Moderate Assistance-helper does LESS THAN HALF the effort. [place] lifts, holds or supports trunk or limbs, but provides less than half the effort. 2-Substantial/Maximal Assistance-helper does MORE THAN HALF the effort. [place] lifts or holds trunk or limbs and provides more than half the effort. 8-Gnsihniwy-asbngq does ALL the effort. Patient does none of the effort to complete the activity. Or, the assistance of 2 or more helpers is required for the patient to complete the activity. If activity was not attempted, code reason: 7-Patient Refused. 9-Not Applicable-not attempted and the patient did not perform the activity before the current illness, exacerbation or injury. 10-Not Attempted due to Environmental Limitations-(lack of equipment, weather restraints, etc.). 88-Not Attempted due to Medical Conditions or Safety Concerns. Eating (QC): 6 Oral Hygiene (QC): 4 (SBA) Shower/Bathe Self (QC): 4 (supervision) Upper Body Dressing (QC): 5 Lower Body Dressing (QC): 4 (SBA) On/Off Footwear: 4 (SBA) Toileting Hygiene (QC): 4 (SBA) Education OT Patient Education: Energy conservation, Home exercise program, Progress toward Goal/Update tx plan, Purpose of tx/functional activities, Safety issues, Transfer techniques, W/C management Teaching Recipient: Patient Teaching Methods: Discussion Response to Teaching: Verbalize Understanding BIMS CAM BIMS Expression of Ideas and Wants: Without Difficulty Understanding Verbal Content: Understands Brief Interview/Mental Status: Yes IRF MANJU BIMS: IRF MANJU BIMS Response (Comments) Value Repitition of Three Words Three 3 Recalls Socks Yes, No Cue Required 2 Recalls Blue Yes, No Cue Required 2 Recalls Bed Yes, No Cue Required 2 Year Correct 3 Month Accurate Within 5 Days 2 Day Correct 1 Total 15 Patient Normally Able to Recal: Location of own room, That he/she in a hsp Should Staff Asses. Mental St.: No CAM Mental Status Change/Baseline: 0 Inattention: 2 Disorganized thinkin Altered level of consciousness: 0 OT Short Term Goals Short Term Goals Time Frame: Dec 06, 2022 Eatin Oral hygiene: 6 Toileting hygiene: 4 OT Draw Press Operator Goals Draw Press Operator Goals Acute change in mental status: 0 Inattention: 2 Disorganized thinkin Altered level of consciousness: 0 Eating (QC): 6 (met) Oral Hygiene (QC): 6 (not met) Toileting Hygiene (QC): 6 (w/ AD) Shower/Bathe Self (QC): 4 (met) Upper Body Dressing (QC): 5 (met) Lower Body Dressing (QC): 5 (met) On/Off Footwear (QC): 5 (met) 1=Demonstrate adherence to instructed precautions during ADL tasks. 2=Patient will verbalize/demonstrate understanding of assistive devices/modifications for ADL. 3=Patient will improve strength/tolerance for activity to enable patient to perform ADL's. OT Education/Plan Problem List/Assessment Assessment: Decreased Activ Tolerance, Decreased Safety Aware, Decreased UE Strength Discharge Recommendations Plan/Recommendations: Continue POC Treatment Plan/Plan of Care Patient would benefit from OT for education, treatment and training to promote independence in ADL's, mobility, safety and/or upper extremity function for ADL's. Plan of Care: ADL Retraining, Cognitive Retraining, Concurrent Therapy, Functional Mobility, Group Exercise/Act as Ind, Orthotic Fitting/Training, UE Funct Exercise/Act, UE Neuromus Re-Ed/Coord Treatment Duration: Jan 05, 2023 Frequency: At least 5 of 7 days/Wk (IRF) Estimated Hrs Per Day: 1.5 hours per day Agreement: Yes Rehab Potential: Fair Time Start Time: 07:40 Stop Time: 08:25 DATE: Dec 19, 2022 Total Time Billed (hr/min): 45 Billed Treatment Time 1 visit ADL 3 (45) Shira Gamino COTA Dec 19, 2022 07:50
[2022-12-19 08:29] VITALS: BP 120/66
[2022-12-19] MEDS: CRANBERRY EXTRACT 500 MG PO SCH (08:55)
[2022-12-19] MEDS: CALCIUM CARBONATE 600 MG (CALCARB) TAB PO SCH (08:55)
[2022-12-19] MEDS: NICOTINE PATCH REMOVAL TP SCH (08:55)
[2022-12-19] MEDS: DICYCLOMINE 10 MG (BENTYL) CAP PO SCH ×3 (08:56→20:33)
[2022-12-19] MEDS: LEVOMILNACIPRAN HYDROCHLORIDE 80 MG PO SCH (08:56)
[2022-12-19] MEDS: PANTOPRAZOLE 40 MG (PROTONIX) TAB PO SCH (08:57)
[2022-12-19] MEDS: LACTOBACILLUS ACIDOPHILUS (PROBIOTIC) CAPSULE PO SCH (08:57)
[2022-12-19] MEDS: OMEGA 3 (FISH OIL) 1000 MG CAP PO SCH (08:57)
[2022-12-19] MEDS: MULTIVIT W/MINERALS TAB (THERAGRAN M) PO SCH (08:57)
[2022-12-19] MEDS: VITAMIN D3 25 MCG (1,000 UNITS) TABLET PO SCH (08:57)
[2022-12-19] MEDS: FAMOTIDINE 20 MG (PEPCID) TABLET PO SCH (08:57)
[2022-12-19] MEDS: buPROPion SR 150 MG (WELLBUTRIN SR) TAB PO SCH (08:57)
[2022-12-19] MEDS: SENNA W/DOCUSATE (SENOKOT S) TABLET PO SCH ×2 (08:58→20:34)
[2022-12-19] MEDS: DOCUSATE SODIUM 100 MG (COLACE) CAP PO SCH ×2 (08:58→20:34)
[2022-12-19] MEDS: NICOTINE 21 MG (NICODERM) PATCH TD SCH (08:58)
[2022-12-19] MEDS: LIDOCAINE 4% (SALONPAS) PATCH TOP SCH (08:58)
[2022-12-19] MEDS: DICLOFENAC 1% GEL 100 GM (VOLTAREN) TUBE TOP SCH ×4 (08:59→20:35)
[2022-12-19] MEDS: BIOTIN 10000 MCG PO SCH (09:03)
[2022-12-19] MEDS: DIVALPROEX 250 MG DELAYED RELEASE (DEPAKOTE) TAB PO SCH ×2 (09:03→20:33)
--- NOTE | 2022-12-19 09:18 | PM&R Progress Note ---
Subjective HPI/CC On Admission Date Seen by Provider: Dec 19, 2022 Time Seen by Provider: 12:00 Subjective/Events-last exam 12/19/2022: Sodium level much improved We will Hep-Lock IV fluid Change cefepime to Omnicef p.o. 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 when no additional fluid consumed This confirms the psychogenic polydipsia when she received her wheelchair and was mobile she was drinking water out of the faucet (beyond the 1000 cc of fluid restriction and she is constantly talking about fluid intake Urine culture pending IV fluids maintained Discussed inpatient [facility] psych treatment she is not willing to do that 12/17/2022: Hyponatremia worse Patient has been drinking water out of the restrictions because she was mobilizing with wheelchair Reviewed all labs and meds and cannot see one in particular that is causing the hyponatremia Fluid restriction initiated Refuses salt tablets 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 12/16/2022: Patient is having some delusions Focusing on different things every day Pain seems to be improved Needs psych follow-up 12/15/2022: Patient with multiple somatic complaints Sodium level 125 Continue to hold Dyazide Focused now on her hearing loss which is out of my scope of expertise 12/14/2022: Pain is improved Supportive care we will continue Wheelchair mobility now that she has doing wheelchair Patient improved 12/13/2022: Patient doing a lot better Walking better Leaned over position when she walks but she remains a fall risk regardless Feels much better No nausea Scopolamine patch improved 12/12/2022: Patient doing a lot better Had emesis after the sodium tablets so we will discontinue that and place scopolamine patch on Multiple somatic complaints 12/11/2022: Patient doing a lot better No pain is reported other than the back Participation is good Slow recovery 12/10/2022: Patient doing well Changed all of her medications to exactly how she takes at home but that varies by the day Pain is controlled Moving around a lot better Still remains fall risk 12/09/2022: Much improved Pain controlled UA normal No falls 12/08/2022: Patient doing a lot better Move around better Fentanyl patch off not as drowsy Changed all medications to which she was taking at home 12/07/2022: Patient doing well Less sedation but will pull off fentanyl patch Able to participate in therapy Checked meds and labs 12/06/2022: Patient doing about the same Was able to work with therapy but in between time she is very confused Pain is somewhat controlled Patient has such severe chronic pain and fibromyalgia and difficulty coping with that pain she will need slow recovery time Review of Systems General: Fatigue, Malaise Objective Exam Vital Signs Vital Signs Date Time Temp Pulse Resp B/P (MAP) Pulse Ox O2 Delivery O2 Flow Rate FiO2 12/19/22 08:29 35.5 85 18 120/66 (84) 96 Room Air Capillary Refill : General Appearance: No Apparent Distress, WD/WN, Chronically ill, Thin, Other (Frail and pale) HEENT: PERRL/EOMI, Normal ENT Inspection, Pharynx Normal Neck: Full Range of Motion, Normal Inspection, Non Tender, Supple, Carotid Bruit Respiratory: Chest Non Tender, Lungs Clear, Normal Breath Sounds, No Accessory Muscle Use, No Respiratory Distress Cardiovascular: Regular Rate, Rhythm, No Edema, No Gallop, No JVD, No Murmur, Normal Peripheral Pulses Gastrointestinal: Normal Bowel Sounds, No Organomegaly, No Pulsatile Mass, Non Tender, Soft Back: CVA Tenderness (L), CVA Tenderness (R), Decreased Range of Motion, Muscle Spasm, Vertebral Tenderness Extremity: Normal Capillary Refill, Normal Inspection, Normal Range of Motion, Non Tender, No Calf Tenderness, No Pedal Edema Neurologic/Psychiatric: Alert, Oriented x3, Normal Mood/Affect, public policy associate II-XII Norm as Tested, Abnormal Gait, Depressed Affect, Motor Weakness ( generalized especially lower extremities) Skin: Normal Color, Warm/Dry Lymphatic: No Adenopathy Results/Procedures Lab Laboratory Tests 12/19/22 05:07 Patient resulted labs reviewed. FIM Transfers Therapy Code Descriptions/Definitions Functional [place] Measure: 0=Not Assessed/NA 4=Minimal Assistance 1=Total Assistance 5=Supervision or Setup 2=Maximal Assistance 6=Modified [place] 3=Moderate Assistance 7=Complete IndependenceSCALE: Activities may be completed with or without assistive devices. 8-Saeadovaqu-kqqamag completes the activity by him/herself with no assistance from a helper. 5-Set-up or Clean-up Assistance-helper sets up or cleans up; patient completes activity. [place] assists only prior to or following the activity. 4-Supervision or Touching Assistance-helper provides verbal cues and/or yaz diamante/steadying and/or contact guard assistance as patient completes activity. Assistance may be provided throughout the activity or intermittently. 3-Partial/Moderate Assistance-helper does LESS THAN HALF the effort. [place] lifts, holds or supports trunk or limbs, but provides less than half the effort. 2-Substantial/Maximal Assistance-helper does MORE THAN HALF the effort. [place] lifts or holds trunk or limbs and provides more than half the effort. 7-Cvnxdqddy-fvdqrq does ALL the effort. Patient does none of the effort to complete the activity. Or, the assistance of 2 or more helpers is required for the patient to complete the activity. If activity was not attempted, code reason: 7-Patient Refused. 9-Not Applicable-not attempted and the patient did not perform the activity b efore the current illness, exacerbation or injury. 10-Not Attempted due to Environmental Limitations-(lack of equipment, weather restraints, etc.). 88-Not Attempted due to Medical Conditions or Safety Concerns. Roll Left to Right (QC): 6 Sit to Lying (QC): 6 Sit to Stand (QC): 6 Chair/Qoq-vh-Vnagw Xfer(QC): 5 Car Transfer (QC): 4 Gait Training Does the Patient Walk?: Yes Walk 10 feet (QC): 4 Walk 50 ft with 2 Turns(QC): 4 Walk 150 ft (QC): 4 Walking 10ft/uneven surface-QC: 88 Gait Assistive Device: FWW Wheelchair Training Does the Pt Use a Wheelchair?: Yes Wheel 50 ft with 2 turns (QC): 9 Wheel 150 ft (QC): 9 Type of Wheelchair: Manual Stair Training 1 Step (curb) (QC): 9 4 Steps (QC): 4 12 Steps (QC): 9 Balance Picking up an Object (QC): 3 (Min A) ADL-Treatment Eating (QC): 6 Oral Hygiene (QC): 5 Bathing Location: L Arm, R Arm, L Upper Leg, R Upper Leg, L Lower Leg (including foot), R Lower Leg (including foot), Chest, Abdomen, Buttocks, Per ineal Area Shower/Bathe Self (QC): 4 Upper Body Dressing (QC): 5 Lower Body Dressing (QC): 5 On/Off Footwear (QC): 5 Toileting Hygiene (QC): 5 Toilet Transfer (QC): 5 Assessment/Plan Assessment and Plan Assess & Plan/Chief Complaint Assessment: Compression fractures T11-L2 Fall Indwelling catheter Fibromyalgia Bipolar disorder UTIs no evidence of acute UTI here UA sterile in and out cath is normal Acute encephalopathy due to medications Tremors Hyponatremia due to psychogenic polydipsia 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And previously on Dyazide holding for the last several days Somatic complaints Plan: Supportive care Pain control Lynch catheter to remain for 1 more day Home meds 12/06/2022: Updated sister at the bedside Monitor confusion 12/07/2022: Supportive care Monitor closely 12/08/2022: Improved pain DC fentanyl patch 12/09/2022: UA normal 12/10/2022: Fall risk remains Aggressive rehab 12/11/2022: Supportive care Monitor closely 12/12/2022: Supportive care DC salt tablets 12/13/2022: Continue limiting fluid 12/14/2022: Wheelchair mobility Check labs in the morning 12/15/2022: Supportive care Discharge on Sunday12/16/2022: Supportive care 12/17/2022: work-up low sodium Assure fluid restriction compliance 12/18/2022: IV fluid IV antibiotics Await urine culture Really needs inpatient psych treatment but not willing 12/19/2022: Switch IV antibiotic to oral Fluid restriction to 1000 cc (1) Compression fracture of L2 Status: Acute (2) Lumbar radiculopathy Status: Acute (3) Debility Status: Acute GABRIEL VIRGEN DO Dec 19, 2022 09:18
--- NOTE | 2022-12-19 10:33 | Speech Therapy Daily Note ---
Speech Daily Progress Note Subjective Date Seen by Provider: Dec 19, 2022 Time Seen by Provider: 09:00 Pt laying in bed. Pt with nursing staff present administering medications. Pt pleasant and cooperative throughout session. Pain Numeric Pain Scale: 4 Location: Lower Location Body Site: Back Objective Pt completes cognitive task using process of elimination with 60% accuracy with min verbal cues. Assessment Assessment Current Status: Fair Progress Treatment Plan Continue Plan of Care Speech Short Term Goals Short Term Goals Short Term Goals 1. The patient will demonstrate memory exercises with 80% accuracy and mild clinician verbal cueing. 2. The patient will demonstrate safe swallowing strategies with 90% accuracy and mild clinician verbal cueing. Time Frame-STG: One Week. Speech Fpc Goals Fpc Goals 1. The patient will demonstrate improved cognitive linguistic communication for safe discharge to the least restrictive environment. 2. The patient will tolerate the least restrictive diet consistency without s/s of suspected aspiration. Time Frame: Two Weeks. Speech-Plan Patient/Family Goals Patient/Family Goals: Pt's goal is to go home with caregivers. Treatment Plan Speech Therapy Treatment Plan: Continue Plan of Care Treatment Duration: Dec 16, 2022 Frequency: Modified Program (IRF) (Four to five times per week.) Estimated Hrs Per Day: .5 hour per day Rehab Potential: Fair Safety Risks/Education Teaching Recipient: Patient Teaching Methods: Discussion Response to Teaching: Verbalize Understanding, Reinforcement Needed Education Topics Provided: Pt educated on purpose of therapy tasks. Pt receptive and verbalized understanding. Pt might require reinforcement. Time Speech Therapy Time In: 09:00 Speech Therapy Time Out: 09:30 DATE: Dec 19, 2022 Total Billed Time: 30 Billed Treatment Time S/L Ting Lujan Speech Therapy Dec 19, 2022 10:33
--- NOTE | 2022-12-19 13:30 | Therapy Group Daily Note ---
Therapy Daily Group Note Patient Education Topic Home Safety, Other List Below (nutrition) Exercises LE Seated Exercise, UE Exercise Session Ratio (pt:therapist): 4:1 Goal of Session: Home Safety Strategies, UE/LE Strengthing Goal Met for this Session: Yes Pt Benefit of Group: Contributions to Others, F/U Use of Strategies @Home, Increased Functional Safety, Increased Functional Strength, Improved Cognition, Recognition of Peers, Socialization Other/Notes Pt ambulated using [facility] to [facility] for OT/PT group. Group consisted of pt's socializing while eating lunch together, education on exercise/nutrition and B UE LE seated exercises. Pt actively listened to therapists and peers during session then participated appropriately with activities and exercises. Pt able to verbalize understanding of educational topics by verbalizing personal strategies and opinions. Pt able to complete own meal set up and use regular utensils to eat appropriately with peers. Tolerated B UE/LE well. After session, pt sitting in recliner with call light/phone in reach. All needs met in room. Start Time: 12:00 Stop Time: 13:10 Total Billed Treatment Time: 70 Total Billed Treatment 1-GRP MICHELLE BLACKWOOD Dec 19, 2022 13:30
--- NOTE | 2022-12-19 13:50 | Physical Therapy Daily Note ---
PT Daily Note-Current Subjective Pt was in bed upon arrival and willing of for therapy this day. pt reports no pain this day. pt was left in bed after therapy with call light and all needs met. Pain Section J - Health Conditions 1. Rarely or not at all 2. Occasionally 3. Frequently 4. Almost constantly 8. Unable to answer Pain Effect on Sleep: 2 Pain Interference with Therapy: 3 Pain Interference w/Day-to-Day: 2 Mental Status Patient Orientation: Person, Place, Situation Transfers SCALE: Activities may be completed with or without assistive devices. 8-Lpudnlwfsv-okfcasm completes the activity by him/herself with no assistance from a helper. 5-Set-up or Clean-up Assistance-helper sets up or cleans up; patient completes activity. [place] assists only prior to or following the activity. 4-Supervision or Touching Assistance-helper provides verbal cues and/or touching/steadying and/or contact guard assistance as patient completes activity. Assistance may be provided throughout the activity or intermittently. 3-Partial/Moderate Assistance-helper does LESS THAN HALF the effort. [place] lifts, holds or supports trunk or limbs, but provides less than half the effort. 2-Substantial/Maximal Assistance-helper does MORE THAN HALF the effort. [place] lifts or holds trunk or limbs and provides more than half the effort. 1-Efsdfkxur-mcrmnp does ALL the effort. Patient does none of the effort to complete the activity. Or, the assistance of 2 or more helpers is required for the patient to complete the activity. If activity was not attempted, code reason: 7-Patient Refused. 9-Not Applicable-not attempted and the patient did not perform the activity before the current illness, exacerbation or injury. 10-Not Attempted due to Environmental Limitations-(lack of equipment, weather restraints, etc.). 88-Not Attempted due to Medical Conditions or Safety Concerns. Roll Left & Right (QC): 6 Sit to Lying (QC): 6 Lying to Sitting/Side of Bed(Q: 6 Sit to Stand (QC): 5 Chair/Dth-sp-Lkhyv Xfer(QC): 4 Toilet Transfer (QC): 4 Car Transfer (QC): 4 Weight Bearing Right Lower Extremity: Right Full Weight Bearing Left Lower Extremity: Left Full Weight Bearing Gait Training Walk 10 feet (QC): 4 Walk 50 ft with 2 Turns(QC): 4 Walk 150 ft (QC): 4 Walking 10ft/uneven surface-QC: 4 Stair Training 1 Step (curb) (QC): 4 4 Steps (QC): 4 12 Steps (QC): 4 Balance Picking up an Object (QC): 6 Treatments Pt is able to ambulate 250 ft with RW and SBA. pt can preform car transfers with CGA with VC for safety 40% of the time. pt can preform 12 stairs with CGA and VC for safety 60% of the time to prevent falls and LOB. Assessment Current Status: Good Progress PT Senior Recruitment Consultant Goals Senior Recruitment Consultant Goals PT Residential Goals Time Frame: Dec 15, 2022 Roll Left & Right (QC): 4 (Pt will be SBA for functional mobility with the FWW to safely d/c home with assistance. ) Sit to Lying (QC): 4 (Pt will be SBA for functional mobility with the FWW to safely d/c home with assistance. ) Lying-Sitting on Side/Bed(QC): 4 (Pt will be SBA for functional mobility with the FWW to safely d/c home with assistance. ) Sit to Stand (QC): 4 (Pt will be SBA for functional mobility with the FWW to safely d/c home with assistance. ) Chair/Qrh-tn-Sdbqp Xfer(QC): 4 (Pt will be SBA for functional mobility with the FWW to safely d/c home with assistance. ) Toilet Transfer (QC): 4 (Pt will be SBA for functional mobility with the FWW to safely d/c home with assistance. ) Car Transfer (QC): 4 (Pt will be SBA for functional mobility with the FWW to safely d/c home with assistance. ) Does the Patient Walk: Yes Walk 10 feet (QC): 4 (Pt will be SBA for functional mobility with the FWW to safely d/c home with assistance. ) Walk 50ft with 2 Turns (QC): 4 (Pt will be SBA for functional mobility with the FWW to safely d/c home with assistance. ) Walk 150 ft (QC): 4 (Pt will be SBA for functional mobility with the FWW to safely d/c home with assistance. ) Walking 10ft on Uneven Surface: 4 (Pt will be SBA for functional mobility with the FWW to safely d/c home with assistance. ) 1 Step (curb) (QC): 9 4 Steps (QC): 9 12 Steps (QC): 9 Picking up an Object (QC): 4 (Pt will be SBA for functional mobility with the FWW to safely d/c home with assistance. ) Does the Pt use WC or Scooter?: Yes Wheel 50 feet with 2 turns (QC: 6 (Ind with w/c mobility ) Type: Manual Wheel 150 feet: 6 (Ind with w/c mobility ) Type: Manual PT Plan Treatment/Plan Treatment Plan: Continue Plan of Care Treatment Plan: Bed Mobility, Concurrent Therapy, Education, Functional Activity [place], Functional Strength, Group Therapy, Gait, Safety, Therapeutic Exercise, Transfers Treatment Duration: Dec 15, 2022 Frequency: At least 5 of 7 days/Wk (IRF) Estimated Hrs Per Day: 1.5 hours per day Patient and/or Family Agrees t: Yes Time Time In: 1000 Time Out: 1100 DATE: Dec 19, 2022 Total Billed Treatment Time: 60 Total Billed Treatment 1 GT x 2 EX x [address] INTERNET PROGRAMMER Dec 19, 2022 13:50
[2022-12-19] MEDS ORDERED: CEFDINIR 300 MG (OMNICEF) CAP PO ONE (14:45)
[2022-12-19] MEDS: ENOXAPARIN 40 MG/0.4 ML (LOVENOX) SYR SC SCH (17:51)
[2022-12-19] MEDS ORDERED: CEFD300C3 PO (19:00)
[2022-12-19] MEDS ORDERED: ALPR.25T PO (19:00)
--- NOTE | 2022-12-19 19:01 | D/C HH Face to Face Order ---
D/C HH Face to Face Orders Reconcile Patient Problems Problems Reviewed?: Yes Instructions for Patient HH Patient Instructions/FollowUp: PCP 1 week Physician to follow Patient: Nilam Coe Diet for Home: No Restrictions Patient Problems: Compression fractures Bipolar UTI Patient Data-Allergies,Ht & Wt Patient Allergies: Coded Allergies: iodine (Verified Allergy, Severe, HIVES, 05/24/19) morphine (Verified Allergy, Severe, HIVES, 05/24/19) hydrocodone (Verified Allergy, Intermediate, Itching, 05/24/19) hydromorphone (Verified Allergy, Unknown, 02/26/21) sulfamethoxazole (Verified Allergy, Unknown, 02/26/21) trimethoprim (Verified Allergy, Unknown, 02/26/21) Height (Feet): 5 Height (Inches): 4.00 Weight (Pounds): 165 Weight (Ounces): 0.0 Home Health Need/Face to Face Date of Face to Face: Dec 19, 2022 Clinical Findings: Generalized weakness and fatigue, Instability, Muscle weakness, Pain with ambulation I have seen Pt iqdg-eg-albi: Yes Discharged To: Home Diagnosis/Conditions: Compression fx Patient is Homebound due to: CognItive deficits, Wilman fall risk due to instabilty, Muscle weakness Homebound Status Due to the above stated illness, injury or surgical procedure (medical condition or diagnosis) and associated clinical findings, the patient is homebound because of his/her inability to leave home except with aid of a supportive device and/or person AND leaving the home requires a considerable and taxing effort or is medically contraindicated. Pt req the following assistanc: Walker Home Health Nursing Orders Home Health Services Order: Nursing Services, [employer] Agent-Evaluate & Tr eat, Physical Therapy-Evaluate & Treat Home Health Infusion Therapy Line Start Date: Dec 18, 2022 Certify Stmt I certify that this patient is under my care and that I, a nurse practitioner or a physician; a mental health assistant working with me, had a face to face encounter that - meets the physician face to face encounter requirements with this patient as dated. GABRIEL VIRGEN DO Dec 19, 2022 19:01
[2022-12-19] MEDS: MONTELUKAST 10 MG (SINGULAIR) TAB PO SCH (20:33)
[2022-12-19] MEDS: GABAPENTIN 300 MG (NEURONTIN) CAP PO SCH (20:33)
[2022-12-19] MEDS: meTOproloL SUCCINATE 50 MG (TOPROL XL) TAB PO SCH (20:33)
[2022-12-19] MEDS: CEFDINIR 300 MG (OMNICEF) CAP PO SCH (20:34)
[2022-12-19] MEDS: LIDOCAINE PATCH REMOVAL TP SCH (20:35)
[2022-12-19 21:06] VITALS: BP 144/84
[2022-12-20] MEDS: GABAPENTIN 100 MG (NEURONTIN) CAP PO SCH ×2 (00:01→05:55)
[2022-12-20] MEDS: BACLOFEN 10 MG (LIORESAL) TAB PO SCH ×2 (00:01→05:54)
[2022-12-20] MEDS: MULTIVIT W/MINERALS TAB (THERAGRAN M) PO SCH (05:55)
--- NOTE | 2022-12-20 06:05 | Discharge Summary ---
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 previously on Dyazide holding for the last several days Somatic complaints Plan: Supportive care Pain control Lynch catheter to remain for 1 more day Home meds 12/06/2022: Updated sister at the bedside Monitor confusion 12/07/2022: Supportive care Monitor closely 12/08/2022: Improved pain DC fentanyl patch 12/09/2022: UA normal 12/10/2022: Fall risk remains Aggressive rehab 12/11/2022: Supportive care Monitor closely 12/12/2022: Supportive care DC salt tablets 12/13/2022: Continue limiting fluid 12/14/2022: Wheelchair mobility Check labs in the morning 12/15/2022: Supportive care Discharge on Sunday12/16/2022: Supportive care 12/17/2022: work-up low sodium Assure fluid restriction compliance 12/18/2022: IV fluid IV antibiotics Await urine culture Really needs inpatient psych treatment but not willing 12/19/2022: Switch IV antibiotic to oral Fluid restriction to 1000 cc (1) Compression fracture of L2 Status: Acute (2) Lumbar radiculopathy Status: Acute (3) Debility Status: Acute Discharge Summary Discharge Physical Examination Allergies: Coded Allergies: iodine (Verified Allergy, Severe, HIVES, 05/24/19) morphine (Verified Allergy, Severe, HIVES, 05/24/19) hydrocodone (Verified Allergy, Intermediate, Itching, 05/24/19) hydromorphone (Verified Allergy, Unknown, 02/26/21) sulfamethoxazole (Verified Allergy, Unknown, 02/26/21) trimethoprim (Verified Allergy, Unknown, 02/26/21) Vitals & I&Os Vital Signs Date Time Temp Pulse Resp B/P (MAP) Pulse Ox O2 Delivery O2 Flow Rate FiO2 12/20/22 10:30 36.3 84 14 158/68 96 Room Air General Appearance: Alert, Oriented X3, Cooperative Respiratory: Clear to Auscultation Cardiovascular: Regular Rate Psych/Mental Status: Mental Status NL Hospital Course Was the Problem List Reviewed?: Yes Hospital course: Patient had a lengthy hospital course. Fentanyl patch was u ltimately removed due to increased confusion. Minimal pain medication taken during the rest of her stay. Hyponatremia complicated the situation requiring fluid restriction but then psychogenic polydipsia caused her to increase her fluid intake when she had wheelchair mobility. She was maintained on restriction. IV fluids initiated gently and she could not tolerate sodium tablets her sodium level returned near back to normal at time of discharge. UTI diagnosed Klebsiella on urine culture cefepime transition to oral Omnicef at discharge. Overall she did very well regaining function with ambulation with walker we will have close follow-up with PCP and mental health professional. Labs (last 24 hrs) Laboratory Tests 12/06/22 05:00: White Blood Count 10.3, Red Blood Count 3.73L, Hemoglobin 11.6, Hematocrit 35, Mean Corpuscular Volume 94, Mean Corpuscular Hemoglobin 31, Mean Corpuscular Hemoglobin Concent 33, Red Cell Distribution Width 12.4, Platelet Count 307, Mean Platelet Volume 10.0, Immature Granulocyte % (Auto) 1, Neutrophils (%) (Auto) 61, Lymphocytes (%) (Auto) 26, Monocytes (%) (Auto) 12, Eosinophils (%) (Auto) 0, Basophils (%) (Auto) 0, Neutrophils # (Auto) 6.3, Lymphocytes # (Auto) 2.7, Monocytes # (Auto) 1.2H, Eosinophils # (Auto) 0.0, Basophils # (Auto) 0.0, Immature Granulocyte # (Auto) 0.1, Sodium Level 129L, Potassium Level 4.2, Chloride Level 94L, Carbon Dioxide Level 24, Anion Gap 11, Blood Urea Nitrogen 27H, Creatinine 1.30, Estimat Glomerular Filtration Rate 46, BUN/Creatinine Ratio 21, Glucose Level 95, Calcium Level 7.9L, Corrected Calcium 8.4L, Total Bilirubin 0.2, Aspartate Amino Transf (AST/SGOT) 14, Alanine Aminotransferase (ALT/SGPT) 8, Alkaline Phosphatase 79, Total Protein 5.9L, Albumin 3.4 12/06/22 18:28: Glucometer 97 12/09/22 09:29: Urine Color YELLOW, Urine Clarity CLEAR, Urine pH 7.5, Urine Specific [place] 1.010L, Urine Protein NEGATIVE, Urine Glucose (UA) NEGATIVE, Urine Ketones NEGATIVE, Urine Nitrite NEGATIVE, Urine Bilirubin NEGATIVE, Urine Urobilinogen 0.2, Urine Leukocyte Esterase NEGATIVE, Urine RBC (Auto) NEGATIVE, Urine RBC NONE, Urine WBC NONE, Urine Squamous Epithelial Cells RARE, Urine Crystals NONE, Urine Bacteria NEGATIVE, Urine Casts NONE, Urine Mucus NEGATIVE, Urine Culture Indicated NO 12/11/22 05:45: White Blood Count 9.7, Red Blood Count 4.14, Hemoglobin 12.7, Hematocrit 37, Mean Corpuscular Volume 90, Mean Corpuscular Hemoglobin 31, Mean Corpuscular Hemoglobin Concent 34, Red Cell Distribution Width 11.8, Platelet Count 368, Mean Platelet Volume 9.6, Immature Granulocyte % (Auto) 1, Neutrophils (%) (Auto) 56, Lymphocytes (%) (Auto) 27, Monocytes (%) (Auto) 14H, Eosinophils (%) (Auto) 0, Basophils (%) (Auto) 1, Neutrophils # (Auto) 5.5, Lymphocytes # (Auto) 2.7, Monocytes # (Auto) 1.4H, Eosinophils # (Auto) 0.0, Basophils # (Auto) 0.1, Immature Granulocyte # (Auto) 0.1, Sodium Level 122*L, Potassium Level 4.2, Chloride Level 83L, Carbon Dioxide Level 31, Anion Gap 8, Blood Urea Nitrogen 17, Creatinine 0.76, Estimat Glomerular Filtration Rate 87, BUN/Creatinine Ratio 22, Glucose Level 103, Calcium Level 9.0, Corrected Calcium 9.3, Total Bilirubin 0.4, Aspartate Amino Transf (AST/SGOT) 17, Alanine Aminotransferase (ALT/SGPT) 11, Alkaline Phosphatase 92, Total Protein 6.4, Albumin 3.6 12/13/22 06:54: Sodium Level 127L, Potassium Level 4.0, Chloride Level 85L, Carbon Dioxide Level 30, Anion Gap 12, Blood Urea Nitrogen 18, Creatinine 0.86, Estimat Glomerular Filtration Rate 75, BUN/Creatinine Ratio 21, Glucose Level 103, Calcium Level 8.7 12/15/22 05:57: Sodium Level 125*L, Potassium Level 4.2, Chloride Level 86L, Carbon Dioxide Level 27, Anion Gap 12, Blood Urea Nitrogen 24H, Creatinine 1.06, Estimat Glomerular Filtration Rate 58, BUN/Creatinine Ratio 23, Glucose Level 92, Calcium Level 8.6, White Blood Count 8.8, Red Blood Count 3.81, Hemoglobin 11.9, Hematocrit 34L, Mean Corpuscular Volume 90, Mean Corpuscular Hemoglobin 31, Mean Corpuscular Hemoglobin Concent 35, Red Cell Distribution Width 11.9, Platelet Count 344, Mean Platelet Volume 9.7, Immature Granulocyte % (Auto) 1, Neutrophils (%) (Auto) 60, Lymphocytes (%) (Auto) 28, Monocytes (%) (Auto) 10, Eosinophils (%) (Auto) 0, Basophils (%) (Auto) 1, Neutrophils # (Auto) 5.3, Lymphocytes # (Auto) 2.4, Monocytes # (Auto) 0.9, Eosinophils # (Auto) 0.0, Basophils # (Auto) 0.1, Immature Granulocyte # (Auto) 0.1, Corrected Calcium 8.9, Total Bilirubin 0.2, Aspartate Amino Transf (AST/SGOT) 15, Alanine Aminotransferase (ALT/SGPT) 11, Alkaline Phosphatase 106, Total Protein 6.3L, Albumin 3.6 12/17/22 07:51: Sodium Level 123*L, Potassium Level 4.4, Chloride Level 84L, Carbon Dioxide Level 28, Anion Gap 11, Blood Urea Nitrogen 14, Creatinine 0.75, Estimat Glomerular Filtration Rate 88, BUN/Creatinine Ratio 19, Glucose Level 100, Calcium Level 8.7, White Blood Count 10.8, Red Blood Count 3.83, Hemoglobin 11.7, Hematocrit 34L, Mean Corpuscular Volume 89, Mean Corpuscular Hemoglobin 31, Mean Corpuscular Hemoglobin Concent 34, Red Cell Distribution Width 11.8, Platelet Count 335, Mean Platelet Volume 9.7, Immature Granulocyte % (Auto) 1, Neutrophils (%) (Auto) 63, Lymphocytes (%) (Auto) 24, Monocytes (%) (Auto) 11, Eosinophils (%) (Auto) 0, Basophils (%) (Auto) 1, Neutrophils # (Auto) 6.8, Lymphocytes # (Auto) 2.6, Monocytes # (Auto) 1.2H, Eosinophils # (Auto) 0.0, Basophils # (Auto) 0.1, Immature Granulocyte # (Auto) 0.1, Corrected Calcium 9.0, Total Bilirubin 0.3, Aspartate Amino Transf (AST/SGOT) 16, Alanine Aminotransferase (ALT/SGPT) 9, Alkaline Phosphatase 115, Total Protein 6.4, Albumin 3.6, Thyroid Stimulating Hormone (TSH) 1.09, Valproic Acid (Depakene) Level 69.7 12/17/22 09:54: Urine Color YELLOW, Urine Clarity CLOUDY, Urine pH 7.5, Urine Specific [place] 1.010L, Urine Protein NEGATIVE, Urine Glucose (UA) NEGATIVE, Urine Ketones NEGATIVE, Urine Nitrite POSITIVEH, Urine Bilirubin NEGATIVE, Urine Urobilinogen 0.2, Urine Leukocyte Esterase 3+H, Urine RBC (Auto) 1+H, Urine RBC NONE, Urine WBC >100H, Urine Squamous Epithelial Cells RARE, Urine Crystals NONE, Urine Bacteria LARGEH, Urine Casts NONE, Urine Mucus NEGATIVE, Urine Culture Indicated YES, Urine Random Sodium 36, Urine Random Potassium 24, Urine Random Chloride 23, Total Cortisol 11.5 12/18/22 05:15: White Blood Count 13.0H, Red Blood Count 3.54L, Hemoglobin 11.0L, Hematocrit 32L , Mean Corpuscular Volume 91, Mean Corpuscular Hemoglobin 31, Mean Corpuscular Hemoglobin Concent 34, Red Cell Distribution Width 12.0, Platelet Count 339, Mean Platelet Volume 9.8, Immature Granulocyte % (Auto) 1, Neutrophils (%) (Auto) 66, Lymphocytes (%) (Auto) 19, Monocytes (%) (Auto) 12, Eosinophils (%) (Auto) 0, Basophils (%) (Auto) 1, Neutrophils # (Auto) 8.7H, Lymphocytes # (Auto) 2.5, Monocytes # (Auto) 1.6H, Eosinophils # (Auto) 0.0, Basophils # (Auto) 0.1, Immature Granulocyte # (Auto) 0.2H, Sodium Level 127L, Potassium Level 4.1, Chloride Level 91L, Carbon Dioxide Level 27, Anion Gap 9, Blood Urea Nitrogen 9, Creatinine 0.69, Estimat Glomerular Filtration Rate 96, BUN/Creatinine Ratio 13, Glucose Level 91, Calcium Level 8.6, Corrected Calcium 9.2, Total Bilirubin 0.2, Aspartate Amino Transf (AST/SGOT) 16, Alanine Aminotransferase (ALT/SGPT) 10, Alkaline Phosphatase 109, Total Protein 5.8L, Albumin 3.2 12/19/22 05:07: White Blood Count 12.5H, Red Blood Count 3.61L, Hemoglobin 11.0L, Hematocrit 33L , Mean Corpuscular Volume 91, Mean Corpuscular Hemoglobin 31, Mean Corpuscular Hemoglobin Concent 34, Red Cell Distribution Width 12.0, Platelet Count 337, Mean Platelet Volume 9.5, Immature Granulocyte % (Auto) 1, Neutrophils (%) (Auto) 73, Lymphocytes (%) (Auto) 17, Monocytes (%) (Auto) 9, Eosinophils (%) (Auto) 0, Basophils (%) (Auto) 0, Neutrophils # (Auto) 9.1H, Lymphocytes # (Auto) 2.1, Monocytes # (Auto) 1.1H, Eosinophils # (Auto) 0.0, Basophils # (Auto) 0.1, Immature Granulocyte # (Auto) 0.1, Sodium Level 133L, Potassium Level 3.8, Chloride Level 98, Carbon Dioxide Level 27, Anion Gap 8, Blood Urea N itrogen 6L, Creatinine 0.58L, Estimat Glomerular Filtration Rate 100, BUN/Creatinine Ratio 10, Glucose Level 97, Calcium Level 8.4L, Corrected Calcium 9.2, Total Bilirubin 0.2, Aspartate Amino Transf (AST/SGOT) 16, Alanine Aminotransferase (ALT/SGPT) 7, Alkaline Phosphatase 104, Total Protein 5.5L, Albumin 3.0L Microbiology 12/17/22 Urine Culture - Final, Complete Klebsiella pneumoniae [facility] No Further Testing Pending Labs Microbiology Date/Time Source Procedure Growth Status 12/17/22 09:54 Urine Straight Cath, In/Out Urine Culture - Final Klebsiella pneumoniae [facility] No Further Testing Complete Laboratory Tests 12/06/22 05:00: White Blood Count 10.3, Red Blood Count 3.73, Hemoglobin 11.6, Hematocrit 35, Mean Corpuscular Volume 94, Mean Corpuscular Hemoglobin 31, Mean Corpuscular Hemoglobin Concent 33, Red Cell Distribution Width 12.4, Platelet Count 307, Mean Platelet Volume 10.0, Immature Granulocyte % (Auto) 1, Neutrophils (%) (Auto) 61, Lymphocytes (%) (Auto) 26, Monocytes (%) (Auto) 12, Eosinophils (%) (Auto) 0, Basophils (%) (Auto) 0, Neutrophils # (Auto) 6.3, Lymphocytes # (Auto) 2.7, Monocytes # (Auto) 1.2, Eosinophils # (Auto) 0.0, Basophils # (Auto) 0.0, Immature Granulocyte # (Auto) 0.1, Sodium Level 129, Potassium Level 4.2, Chloride Level 94, Carbon Dioxide Level 24, Anion Gap 11, Blood Urea Nitrogen 27, Creatinine 1.30, Estimat Glomerular Filtration Rate 46, BUN/Creatinine Ratio 21, Glucose Level 95, Calcium Level 7.9, Corrected Calcium 8.4, Total Bilirubin 0.2, Aspartate Amino Transf (AST/SGOT) 14, Alanine Aminotransferase (ALT/SGPT) 8, Alkaline Phosphatase 79, Total Protein 5.9, Albumin 3.4 12/06/22 18:28: Glucometer 97 12/09/22 09:29: Urine Color YELLOW, Urine Clarity CLEAR, Urine pH 7.5, Urine Specific [place] 1.010, Urine Protein NEGATIVE, Urine Glucose (UA) NEGATIVE, Urine Ketones NEGATIVE, Urine Nitrite NEGATIVE, Urine Bilirubin NEGATIVE, Urine Urobilinogen 0.2, Urine Leukocyte Esterase NEGATIVE, Urine RBC (Auto) NEGATIVE, Urine RBC NONE, Urine WBC NONE, Urine Squamous Epithelial Cells RARE, Urine Crystals NONE, Urine Bacteria NEGATIVE, Urine Casts NONE, Urine Mucus NEGATIVE, Urine Culture Indicated NO 12/11/22 05:45: White Blood Count 9.7, Red Blood Count 4.14, Hemoglobin 12.7, Hematocrit 37, Mean Corpuscular Volume 90, Mean Corpuscular Hemoglobin 31, Mean Corpuscular Hemoglobin Concent 34, Red Cell Distribution Width 11.8, Platelet Count 368, Mean Platelet Volume 9.6, Immature Granulocyte % (Auto) 1, Neutrophils (%) (Auto) 56, Lymphocytes (%) (Auto) 27, Monocytes (%) (Auto) 14, Eosinophils (%) (Auto) 0, Basophils (%) (Auto) 1, Neutrophils # (Auto) 5.5, Lymphocytes # (Auto) 2.7, Monocytes # (Auto) 1.4, Eosinophils # (Auto) 0.0, Basophils # (Auto) 0.1, Immature Granulocyte # (Auto) 0.1, Sodium Level 122, Potassium Level 4.2, Chloride Level 83, Carbon Dioxide Level 31, Anion Gap 8, Blood Urea Nitrogen 17, Creatinine 0.76, Estimat Glomerular Filtration Rate 87, BUN/Creatinine Ratio 22, Glucose Level 103, Calcium Level 9.0, Corrected Calcium 9.3, Total Bilirubin 0.4, Aspartate Amino Transf (AST/SGOT) 17, Alanine Aminotransferase (ALT/SGPT) 11, Alkaline Phosphatase 92, Total Protein 6.4, Albumin 3.6 12/13/22 06:54: Sodium Level 127, Potassium Level 4.0, Chloride Level 85, Carbon Dioxide Level 30, Anion Gap 12, Blood Urea Nitrogen 18, Creatinine 0.86, Estimat Glomerular Filtration Rate 75, BUN/Creatinine Ratio 21, Glucose Level 103, Calcium Level 8.7 12/15/22 05:57: Sodium Level 125, Potassium Level 4.2, Chloride Level 86, Carbon Dioxide Level 27, Anion Gap 12, Blood Urea Nitrogen 24, Creatinine 1.06, Estimat Glomerular Filtration Rate 58, BUN/Creatinine Ratio 23, Glucose Level 92, Calcium Level 8.6, White Blood Count 8.8, Red Blood Count 3.81, Hemoglobin 11.9, Hematocrit 34, Mean Corpuscular Volume 90, Mean Corpuscular Hemoglobin 31, Mean Corpuscular Hemoglobin Concent 35, Red Cell Distribution Width 11.9, Platelet Count 344, Mean Platelet Volume 9.7, Immature Granulocyte % (Auto) 1, Neutrophils (%) (Auto) 60, Lymphocytes (%) (Auto) 28, Monocytes (%) (Auto) 10, Eosinophils (%) (Auto) 0, Basophils (%) (Auto) 1, Neutrophils # (Auto) 5.3, Lymphocytes # (Auto) 2.4, Monocytes # (Auto) 0.9, Eosinophils # (Auto) 0.0, Basophils # (Auto) 0.1, Immature Granulocyte # (Auto) 0.1, Corrected Calcium 8.9, Total Bilirubin 0.2, Aspartate Amino Transf (AST/SGOT) 15, Alanine Aminotransferase (ALT/SGPT) 11, Alkaline Phosphatase 106, Total Protein 6.3, Albumin 3.6 12/17/22 07:51: Sodium Level 123, Potassium Level 4.4, Chloride Level 84, Carbon Dioxide Level 28, Anion Gap 11, Blood Urea Nitrogen 14, Creatinine 0.75, Estimat Glomerular Filtration Rate 88, BUN/Creatinine Ratio 19, Glucose Level 100, Calcium Level 8.7, White Blood Count 10.8, Red Blood Count 3.83, Hemoglobin 11.7, Hematocrit 34, Mean Corpuscular Volume 89, Mean Corpuscular Hemoglobin 31, Mean Corpuscular Hemoglobin Concent 34, Red Cell Distribution Width 11.8, Platelet Count 335, Mean Platelet Volume 9.7, Immature Granulocyte % (Auto) 1, Neutrophils (%) (Auto) 63, Lymphocytes (%) (Auto) 24, Monocytes (%) (Auto) 11, Eosinophils (%) (Auto) 0, Basophils (%) (Auto) 1, Neutrophils # (Auto) 6.8, Lymphocytes # (Auto) 2.6, Monocytes # (Auto) 1.2, Eosinophils # (Auto) 0.0, Basophils # (Auto) 0.1, Immature Granulocyte # (Auto) 0.1, Corrected Calcium 9.0, Total Bilirubin 0.3, Aspartate Amino Transf (AST/SGOT) 16, Alanine Aminotransferase (ALT/SGPT) 9, Alkaline Phosphatase 115, Total Protein 6.4, Albumin 3.6, Thyroid Stimulating Hormone (TSH) 1.09, Valproic Acid (Depakene) Level 69.7 12/17/22 09:54: Urine Color YELLOW, Urine Clarity CLOUDY, Urine pH 7.5, Urine Specific [place] 1.010, Urine Protein NEGATIVE, Urine Glucose (UA) NEGATIVE, Urine Ketones NEGATIVE, Urine Nitrite POSITIVE, Urine Bilirubin NEGATIVE, Urine Urobilinogen 0.2, Urine Leukocyte Esterase 3+, Urine RBC (Auto) 1+, Urine RBC NONE, Urine WBC >100, Urine Squamous Epithelial Cells RARE, Urine Crystals NONE, Urine Bacteria LARGE, Urine Casts NONE, Urine Mucus NEGATIVE, Urine Culture Indicated YES, Urine Random Sodium 36, Urine Random Potassium 24, Urine Random Chloride 23, Total Cortisol 11.5 12/18/22 05:15: White Blood Count 13.0, Red Blood Count 3.54, Hemoglobin 11.0, Hematocrit 32, Mean Corpuscular Volume 91, Mean Corpuscular Hemoglobin 31, Mean Corpuscular Hemoglobin Concent 34, Red Cell Distribution Width 12.0, Platelet Count 339, Mean Platelet Volume 9.8, Immature Granulocyte % (Auto) 1, Neutrophils (%) (Auto) 66, Lymphocytes (%) (Auto) 19, Monocytes (%) (Auto) 12, Eosinophils (%) (Auto) 0, Basophils (%) (Auto) 1, Neutrophils # (Auto) 8.7, Lymphocytes # (Auto) 2.5, Monocytes # (Auto) 1.6, Eosinophils # (Auto) 0.0, Basophils # (Auto) 0.1, Immature Granulocyte # (Auto) 0.2, Sodium Level 127, Potassium Level 4.1, Ch loride Level 91, Carbon Dioxide Level 27, Anion Gap 9, Blood Urea Nitrogen 9, Creatinine 0.69, Estimat Glomerular Filtration Rate 96, BUN/Creatinine Ratio 13, Glucose Level 91, Calcium Level 8.6, Corrected Calcium 9.2, Total Bilirubin 0.2, Aspartate Amino Transf (AST/SGOT) 16, Alanine Aminotransferase (ALT/SGPT) 10, Alkaline Phosphatase 109, Total Protein 5.8, Albumin 3.2 12/19/22 05:07: White Blood Count 12.5, Red Blood Count 3.61, Hemoglobin 11.0, Hematocrit 33, Mean Corpuscular Volume 91, Mean Corpuscular Hemoglobin 31, Mean Corpuscular Hemoglobin Concent 34, Red Cell Distribution Width 12.0, Platelet Count 337, Mean Platelet Volume 9.5, Immature Granulocyte % (Auto) 1, Neutrophils (%) (Auto) 73, Lymphocytes (%) (Auto) 17, Monocytes (%) (Auto) 9, Eosinophils (%) (Auto) 0, Basophils (%) (Auto) 0, Neutrophils # (Auto) 9.1, Lymphocytes # (Auto) 2.1, Monocytes # (Auto) 1.1, Eosinophils # (Auto) 0.0, Basophils # (Auto) 0.1, Immature Granulocyte # (Auto) 0.1, Sodium Level 133, Potassium Level 3.8, Chloride Level 98, Carbon Dioxide Level 27, Anion Gap 8, Blood Urea Nitrogen 6, Creatinine 0.58, Estimat Glomerular Filtration Rate 100, BUN/Creatinine Ratio 10, Glucose Level 97, Calcium Level 8.4, Corrected Calcium 9.2, Total Bilirubin 0.2, Aspartate Amino Transf (AST/SGOT) 16, Alanine Aminotransferase (ALT/SGPT) 7, Alkaline Phosphatase 104, Total Protein 5.5, Albumin 3.0 Discharge Home Medications: Active Scripts Active Xanax Tablet (Alprazolam) 0.25 Mg Tab 0.25 Mg PO Q8H PRN Cefdinir 300 Mg Capsule 300 Mg PO BID Reported Divalproex Sodium 500 Mg Tablet.dr 1,000 Mg PO HS TAKES 2 (500MG) TABS Fetzima (Levomilnacipran Hydrochloride) 80 Mg Cap.sa.24h 80 Mg PO DAILY Healthy Eyes Tablet (Vit A,C & E/Lutein/Minerals) 300MCG-200 Tablet 1 Each PO DAILY Gnp [place] Cod Liver Oil (Vit A & D3 in Cod Liver Oil) 1,250 Unit-135 Unit Capsule 1 Each PO DAILY Multivitamin with Iron Tablet (Multivitamin/Iron/Folic Acid) 18 Mg Iron-400 Mcg Tablet 1 Each PO DAILY Montelukast Sodium 10 Mg Tablet 10 Mg PO HS Metoprolol Succinate 50 Mg Tab.er.24h 50 Mg PO HS Gabapentin 100 Mg Capsule 200 Mg PO Q6H TAKES 2 (100MG) CAPS Neurontin (Gabapentin) 300 Mg Capsule 300 Mg PO HS Famotidine 20 Mg Tablet 20 Mg PO BID Estradiol 0.01 % Cream.appl 1 Applic VG 3XWEEKLY Docusate Sodium 100 Mg Capsule 100 Mg PO BID Divalproex Sodium 500 Mg Tablet.dr 500 Mg PO DAILY Cranberry Plus Vitamin C Sftgl (Cranberry Conc/Ascorbic Acid) 4,200 Mg-20 Mg Ca psule 1 Each PO DAILY Calcitonin-[place] (Calcitonin,[place],Synthetic) 200 Unit/[place].pump 1 [place] NA DAILY ALTERNATE NOSTRILS EACH DAY Bupropion Xl (Bupropion HCl) 300 Mg Tab.er.24h 300 Mg PO DAILY Biotin 1,000 Mcg Tab.chew 1,000 Mcg PO DAILY B-Complex with C (B Complex with Vitamin C) 1 Each Tablet 1 Each PO DAILY Azelastine HCl 137 Mcg (0.1 %) [place].pump 1-2 Spr NSEACH 2-3 TIMES DAILY Calcium Carbonate 500 Mg Calcium (1250 Mg) Tablet 500 Mg PO DAILY Vitamin D3 (Cholecalciferol (Vitamin D3)) 50 Mcg (2000 Unit) Tablet 50 Mcg PO DAILY Pantoprazole Sodium 40 Mg Tablet.dr 40 Mg PO DAILY Dicyclomine HCl 20 Mg Tablet 20 Mg PO TID Probiotic (L.acidoph & Paracasei,B.lactis) 1 Each Capsule 1 Each PO DAILY Miralax (Polyethylene Glycol 3350) 17 Gram Powd.pack 17 Gm PO DAILY Levocetirizine Dihydrochloride 5 Mg Tablet 5 Mg PO HS Baclofen 20 Mg Tablet 10 Mg PO Q6H TAKES OF A 20MG TAB Hydroxyzine HCl 10 Mg Tablet 10 Mg PO TID PRN Instructions to patient/family Please see electronic discharge instructions given to patient. Diagnosis/Problems Diagnosis/Problems (1) Compression fracture of L2 Status: Acute (2) Lumbar radiculopathy Status: Acute (3) Debility Status: Acute GABRIEL VIRGEN DO Dec 20, 2022 06:05
[2022-12-20 08:00] VITALS: BP 158/68
[2022-12-20] MEDS: CEFDINIR 300 MG (OMNICEF) CAP PO SCH (08:15)
[2022-12-20] MEDS: buPROPion SR 150 MG (WELLBUTRIN SR) TAB PO SCH (08:15)
[2022-12-20] MEDS: DICYCLOMINE 10 MG (BENTYL) CAP PO SCH (08:15)
[2022-12-20] MEDS: LACTOBACILLUS ACIDOPHILUS (PROBIOTIC) CAPSULE PO SCH (08:15)
[2022-12-20] MEDS: DIVALPROEX 250 MG DELAYED RELEASE (DEPAKOTE) TAB PO SCH (08:16)
[2022-12-20] MEDS: NICOTINE 21 MG (NICODERM) PATCH TD SCH (08:16)
[2022-12-20] MEDS: LIDOCAINE 4% (SALONPAS) PATCH TOP SCH (08:16)
[2022-12-20] MEDS: PANTOPRAZOLE 40 MG (PROTONIX) TAB PO SCH (08:16)
[2022-12-20] MEDS: FAMOTIDINE 20 MG (PEPCID) TABLET PO SCH (08:16)
[2022-12-20] MEDS: DICLOFENAC 1% GEL 100 GM (VOLTAREN) TUBE TOP SCH (08:16)
[2022-12-20] MEDS: BIOTIN 10000 MCG PO SCH (08:17)
[2022-12-20] MEDS: LEVOMILNACIPRAN HYDROCHLORIDE 80 MG PO SCH (08:18)
[2022-12-20] MEDS: DOCUSATE SODIUM 100 MG (COLACE) CAP PO SCH (08:20)
[2022-12-20] MEDS: CRANBERRY EXTRACT 500 MG PO SCH (08:21)
[2022-12-20] MEDS: NICOTINE PATCH REMOVAL TP SCH (08:21)
[2022-12-20] MEDS: CALCIUM CARBONATE 600 MG (CALCARB) TAB PO SCH (08:22)
[2022-12-20] MEDS: SENNA W/DOCUSATE (SENOKOT S) TABLET PO SCH (08:22)
[2022-12-20] MEDS: OMEGA 3 (FISH OIL) 1000 MG CAP PO SCH (08:22)
[2022-12-20] MEDS: VITAMIN D3 25 MCG (1,000 UNITS) TABLET PO SCH (08:22)
[2022-12-20 10:30] VITALS: BP 158/68
--- NOTE | 2022-12-20 15:28 | Therapy Team Discharge Summary ---
Therapy Discharge Summary Discharge Recommendations Date of Discharge Dec 20, 2022 at 10:30 Physical Therapy Pt had a fall @ home on 12/04/2022 with lumbar compression fx; transfer to ARU on 12/05/2022. At PLOF, pt reported being Mod I with the walker. Upon PT eval, pt required Min/Mod A for bed mobility and functional transfers. Pt was only able to walk 10ft with the FWW and Min A. Pt was Mod A for w/c mobility. PT worked on B LE strength, transfers, standing, walking, stairs, endurance, balance, safety, and Ind. Pt progressed well with PT and met all set goals. Pt was d/c from ARU on 12/20/2022 to home with family assistance and HH services. Roll Left to Right (QC): 6 Sit to Lying (QC): 6 Lying to Sitting/Side of Bed(Q: 6 Sit to Stand (QC): 5 Chair/Pjl-hn-Aprpb Xfer(QC): 4 Toilet Transfer (QC): 5 Car Transfer (QC): 4 Does the Patient Walk: Yes Mode of Locomotion: Both Anticipated Mode of Locomotion: Walk Walk 10 feet (QC): 4 Walk 50 ft with 2 Turns(QC): 4 Walk 150 ft (QC): 4 Walking 10ft on uneven surface: 4 Gait Assistive Device: FWW Does the Pt Use a Wheelchair: Yes Wheel 50 ft with 2 turns (QC): 6 Wheel 150 ft (QC): 6 Type of Wheelchair: Manual 1 Step (curb) (QC): 4 4 Steps (QC): 4 12 Steps (QC): 4 Walking Assistive Device: Walker Balance Sitting Static: Fair Balance Sitting Dynamic: Fair Balance-Standing Static: Poor Picking up an Object (QC): 6 Occupational Therapy Decreased Activ Tolerance, Decreased Safety Aware, Decreased UE Strength Eating (QC): 6 Oral Hygiene (QC): 5 Shower/Bathe Self (QC): 4 Upper Body Dressing (QC): 5 Lower Body Dressing (QC): 5 On/Off Footwear (QC): 5 Toileting Hygiene (QC): 5 PT Prison Goals Prison Goals PT Prison Goals Time Frame: Dec 15, 2022 Roll Left to Right (QC): 4 (Pt will be SBA for functional mobility with the FWW to safely d/c home with assistance. ) Sit to Lying (QC): 4 (Pt will be SBA for functional mobility with the FWW to safely d/c home with assistance. ) Lying-Sitting on Side/Bed(QC): 4 (Pt will be SBA for functional mobility with the FWW to safely d/c home with assistance. ) Sit to Stand (QC): 4 (Pt will be SBA for functional mobility with the FWW to safely d/c home with assistance. ) Chair/Dno-jd-Qjjtg Xfer(QC): 4 (Pt will be SBA for functional mobility with the FWW to safely d/c home with assistance. ) Toilet/Commode Transfer (QC): 4 (Pt will be SBA for functional mobility with the FWW to safely d/c home with assistance. ) Car Transfer (QC): 4 (Pt will be SBA for functional mobility with the FWW to safely d/c home with assistance. ) Does the Patient Walk: Yes Walk 10 feet (QC): 4 (Pt will be SBA for functional mobility with the FWW to safely d/c home with assistance. ) Walk 10ft-Uneven Surface(QC): 4 (Pt will be SBA for functional mobility with the FWW to safely d/c home with assistance. ) Walk 50ft with 2 Turns (QC): 4 (Pt will be SBA for functional mobility with the FWW to safely d/c home with assistance. ) Walk 150 ft (QC): 4 (Pt will be SBA for functional mobility with the FWW to safely d/c home with assistance. ) Does the Pt use WC or Scooter?: Yes Wheel 50 feet with 2 turns (QC: 6 (Ind with w/c mobility ) Type: Manual Wheel 150 feet: 6 (Ind with w/c mobility ) Type: Manual 1 Step (curb) (QC): 9 4 Steps (QC): 9 12 Steps (QC): 9 Picking up an Object (QC): 4 (Pt will be SBA for functional mobility with the FWW to safely d/c home with assistance. ) OT Prison Goals Assembler Lay Ups Goals Acute change in mental status: 0 Inattention: 2 Disorganized thinkin Altered level of consciousness: 0 Eating (QC): 6 (met) Oral Hygiene (QC): 6 (not met) Toileting Hygiene (QC): 6 (w/ AD) Shower/Bathe Self (QC): 4 (met) Upper Body Dressing (QC): 5 (met) Lower Body Dressing (QC): 5 (met) On/Off Footwear (QC): 5 (met) 1=Demonstrate adherence to instructed precautions during ADL tasks. 2=Patient will verbalize/demonstrate understanding of assistive devices/modifications for ADL. 3=Patient will improve strength/tolerance for activity to enable patient to perform ADL's. Speech Prison Goals Assembler Lay Ups Goals 1. The patient will demonstrate improved cognitive linguistic communication for safe discharge to the least restrictive environment. 2. The patient will tolerate the least restrictive diet consistency without s/s of suspected aspiration. Time Frame: Two Weeks. BLAZE MUNOZ PT Dec 20, 2022 15:28
--- NOTE | 2022-12-20 15:57 | Therapy Team Discharge Summary ---
Therapy Discharge Summary Discharge Recommendations Date of Discharge Dec 20, 2022 at 10:30 Physical Therapy Roll Left to Right (QC): 6 Sit to Lying (QC): 6 Lying to Sitting/Side of Bed(Q: 6 Sit to Stand (QC): 5 Chair/Bmd-cp-Ugddr Xfer(QC): 4 Toilet Transfer (QC): 5 Car Transfer (QC): 4 Does the Patient Walk: Yes Mode of Locomotion: Both Anticipated Mode of Locomotion: Walk Walk 10 feet (QC): 4 Walk 50 ft with 2 Turns(QC): 4 Walk 150 ft (QC): 4 Walking 10ft on uneven surface: 4 Gait Assistive Device: FWW Does the Pt Use a Wheelchair: Yes Wheel 50 ft with 2 turns (QC): 6 Wheel 150 ft (QC): 6 Type of Wheelchair: Manual 1 Step (curb) (QC): 4 4 Steps (QC): 4 12 Steps (QC): 4 Walking Assistive Device: Walker Balance Sitting Static: Fair Balance Sitting Dynamic: Fair Balance-Standing Static: Poor Picking up an Object (QC): 6 Occupational Therapy Pt had a fall @ home on 12/04/2022 with lumbar compression fx; transfer to HIU on 12/05/2022. At OF, pt reported being Mod I with the walker. Upon PT eval, pt required Min/Mod A for bed mobility and functional transfers. Pt was only able to walk 10ft with the FWW and Min A. Pt was Mod A for w/c mobility. OT worked on B UE strength, transfers, dynamic standing, safe route planning and navigation, endurance, balance, safety, and [place]. Pt progressed well with OT and partially met goals Patient will receive assistance where she lives. Pt was d/c from HIU on 12/20/2022 to home with family assistance and HH services. Decreased Activ Tolerance, Decreased Safety Aware, Decreased UE Strength Eating (QC): 6 Oral Hygiene (QC): 4 (SBA) Shower/Bathe Self (QC): 4 (supervision) Upper Body Dressing (QC): 5 Lower Body Dressing (QC): 4 (SBA) On/Off Footwear (QC): 4 (SBA) Toileting Hygiene (QC): 4 (SBA) PT Heavy Equipment Sales Manager Goals Heavy Equipment Sales Manager Goals PT Penitentiary Goals Time Frame: Dec 15, 2022 Roll Left to Right (QC): 4 (Pt will be SBA for functional mobility with the FWW to safely d/c home with assistance. ) Sit to Lying (QC): 4 (Pt will be SBA for functional mobility with the FWW to safely d/c home with assistance. ) Lying-Sitting on Side/Bed(QC): 4 (Pt will be SBA for functional mobility with the FWW to safely d/c home with assistance. ) Sit to Stand (QC): 4 (Pt will be SBA for functional mobility with the FWW to safely d/c home with assistance. ) Chair/Ztl-jf-Nmkvy Xfer(QC): 4 (Pt will be SBA for functional mobility with the FWW to safely d/c home with assistance. ) Toilet/Commode Transfer (QC): 4 (Pt will be SBA for functional mobility with the FWW to safely d/c home with assistance. ) Car Transfer (QC): 4 (Pt will be SBA for functional mobility with the FWW to safely d/c home with assistance. ) Does the Patient Walk: Yes Walk 10 feet (QC): 4 (Pt will be SBA for functional mobility with the FWW to safely d/c home with assistance. ) Walk 10ft-Uneven Surface(QC): 4 (Pt will be SBA for functional mobility with the FWW to safely d/c home with assistance. ) Walk 50ft with 2 Turns (QC): 4 (Pt will be SBA for functional mobility with the FWW to safely d/c home with assistance. ) Walk 150 ft (QC): 4 (Pt will be SBA for functional mobility with the FWW to safely d/c home with assistance. ) Does the Pt use WC or Scooter?: Yes Wheel 50 feet with 2 turns (QC: 6 (Ind with w/c mobility ) Type: Manual Wheel 150 feet: 6 (Ind with w/c mobility ) Type: Manual 1 Step (curb) (QC): 9 4 Steps (QC): 9 12 Steps (QC): 9 Picking up an Object (QC): 4 (Pt will be SBA for functional mobility with the FWW to safely d/c home with assistance. ) OT Heavy Equipment Sales Manager Goals Penitentiary Goals Acute change in mental status: 0 Inattention: 2 Disorganized thinkin Altered level of consciousness: 0 Eating (QC): 6 (met) Oral Hygiene (QC): 6 (not met) Toileting Hygiene (QC): 6 (w/ AD) Shower/Bathe Self (QC): 4 (met) Upper Body Dressing (QC): 5 (met) Lower Body Dressing (QC): 5 (met) On/Off Footwear (QC): 5 (met) 1=Demonstrate adherence to instructed precautions during ADL tasks. 2=Patient will verbalize/demonstrate understanding of assistive devices/modifications for ADL. 3=Patient will improve strength/tolerance for activity to enable patient to perform ADL's. Speech Heavy Equipment Sales Manager Goals Penitentiary Goals 1. The patient will demonstrate improved cognitive linguistic communication for safe discharge to the least restrictive environment. 2. The patient will tolerate the least restrictive diet consistency without s/s of suspected aspiration. Time Frame: Two Weeks. RASHAWN GRACE OT Dec 20, 2022 15:57
--- NOTE | 2022-12-22 15:50 | Therapy Team Discharge Summary ---
Therapy Discharge Summary Discharge Recommendations Date of Discharge Dec 20, 2022 at 10:30 Physical Therapy Roll Left to Right (QC): 6 Sit to Lying (QC): 6 Lying to Sitting/Side of Bed(Q: 6 Sit to Stand (QC): 5 Chair/Zzm-nd-Wslwa Xfer(QC): 4 Toilet Transfer (QC): 5 Car Transfer (QC): 4 Does the Patient Walk: Yes Mode of Locomotion: Both Anticipated Mode of Locomotion: Walk Walk 10 feet (QC): 4 Walk 50 ft with 2 Turns(QC): 4 Walk 150 ft (QC): 4 Walking 10ft on uneven surface: 4 Gait Assistive Device: FWW Does the Pt Use a Wheelchair: Yes Wheel 50 ft with 2 turns (QC): 6 Wheel 150 ft (QC): 6 Type of Wheelchair: Manual 1 Step (curb) (QC): 4 4 Steps (QC): 4 12 Steps (QC): 4 Walking Assistive Device: Walker Balance Sitting Static: Fair Balance Sitting Dynamic: Fair Balance-Standing Static: Poor Picking up an Object (QC): 6 Occupational Therapy Decreased Activ Tolerance, Decreased Safety Aware, Decreased UE Strength Eating (QC): 6 Oral Hygiene (QC): 4 (SBA) Shower/Bathe Self (QC): 4 (supervision) Upper Body Dressing (QC): 5 Lower Body Dressing (QC): 4 (SBA) On/Off Footwear (QC): 4 (SBA) Toileting Hygiene (QC): 4 (SBA) Speech-Language Pathology Pt admitted to IRU and demonstrated cognitive deficits. Pt targeted recall, attention tasks, money management, and finance management. Pt demonstrates gains while on IRU, but continued to demonstrate cognitive deficits that could impact safety at home. ELECTRONICS DESIGN ENGINEER's d/c recommendation is pt have 08/01 supervision while at home. Pt d/c on 12/20 to home with caregivers. Pt to benefit from continued ST services to address cognition. D/C ST. PT Specialty Food Products Supervisor Goals Specialty Food Products Supervisor Goals PT Specialty Food Products Supervisor Goals Time Frame: Dec 15, 2022 Roll Left to Right (QC): 4 (Pt will be SBA for functional mobility with the FWW to safely d/c home with assistance. ) Sit to Lying (QC): 4 (Pt will be SBA for functional mobility with the FWW to safely d/c home with assistance. ) Lying-Sitting on Side/Bed(QC): 4 (Pt will be SBA for functional mobility with the FWW to safely d/c home with assistance. ) Sit to Stand (QC): 4 (Pt will be SBA for functional mobility with the FWW to safely d/c home with assistance. ) Chair/Tbl-rq-Xtfqp Xfer(QC): 4 (Pt will be SBA for functional mobility with the FWW to safely d/c home with assistance. ) Toilet/Commode Transfer (QC): 4 (Pt will be SBA for functional mobility with the FWW to safely d/c home with assistance. ) Car Transfer (QC): 4 (Pt will be SBA for functional mobility with the FWW to safely d/c home with assistance. ) Does the Patient Walk: Yes Walk 10 feet (QC): 4 (Pt will be SBA for functional mobility with the FWW to safely d/c home with assistance. ) Walk 10ft-Uneven Surface(QC): 4 (Pt will be SBA for functional mobility with the FWW to safely d/c home with assistance. ) Walk 50ft with 2 Turns (QC): 4 (Pt will be SBA for functional mobility with the FWW to safely d/c home with assistance. ) Walk 150 ft (QC): 4 (Pt will be SBA for functional mobility with the FWW to safely d/c home with assistance. ) Does the Pt use WC or Scooter?: Yes Wheel 50 feet with 2 turns (QC: 6 (Ind with w/c mobility ) Type: Manual Wheel 150 feet: 6 (Ind with w/c mobility ) Type: Manual 1 Step (curb) (QC): 9 4 Steps (QC): 9 12 Steps (QC): 9 Picking up an Object (QC): 4 (Pt will be SBA for functional mobility with the FWW to safely d/c home with assistance. ) OT Detention Goals Detention Goals Acute change in mental status: 0 Inattention: 2 Disorganized thinkin Altered level of consciousness: 0 Eating (QC): 6 (met) Oral Hygiene (QC): 6 (not met) Toileting Hygiene (QC): 6 (w/ AD) Shower/Bathe Self (QC): 4 (met) Upper Body Dressing (QC): 5 (met) Lower Body Dressing (QC): 5 (met) On/Off Footwear (QC): 5 (met) 1=Demonstrate adherence to instructed precautions during ADL tasks. 2=Patient will verbalize/demonstrate understanding of assistive devices/modifications for ADL. 3=Patient will improve strength/tolerance for activity to enable patient to perform ADL's. Speech Specialty Food Products Supervisor Goals Specialty Food Products Supervisor Goals 1. The patient will demonstrate improved cognitive linguistic communication for safe discharge to the least restrictive environment. 2. The patient will tolerate the least restrictive diet consistency without s/s of suspected aspiration. Time Frame: Two Weeks. Ting Hyde Speech Therapy Dec 22, 2022 15:49
== END 2022-12-20 10:30 | disposition home health service (06) | DRG 559 ==
PROVIDERS: ADMIT Internal Medicine; ATTEND Internal Medicine
DX: S22.089D Unspecified fracture of T11-T12 vertebra, subsequent encounter for fracture with routine healing (principal); G92.8 Other toxic encephalopathy; N39.0 Urinary tract infection, site not specified; E22.2 Syndrome of inappropriate secretion of antidiuretic hormone; S32.019D Unspecified fracture of first lumbar vertebra, subsequent encounter for fracture with routine healing; S32.029D Unspecified fracture of second lumbar vertebra, subsequent encounter for fracture with routine healing; R63.1 Polydipsia; M81.0 Age-related osteoporosis without current pathological fracture; Z66 Do not resuscitate; I10 Essential (primary) hypertension; F41.9 Anxiety disorder, unspecified; F31.9 Bipolar disorder, unspecified; K21.9 Gastro-esophageal reflux disease without esophagitis; M19.90 Unspecified osteoarthritis, unspecified site; M79.7 Fibromyalgia; H91.90 Unspecified hearing loss, unspecified ear; B96.1 Klebsiella pneumoniae [K. pneumoniae] as the cause of diseases classified elsewhere; H54.3 Unqualified visual loss, both eyes; Z88.5 Allergy status to narcotic agent; Z88.2 Allergy status to sulfonamides; Z91.09 Other allergy status, other than to drugs and biological substances; Z79.899 Other long term (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; Z79.1 Long term (current) use of non-steroidal anti-inflammatories (NSAID); W19.XXXD Unspecified fall, subsequent encounter; T40.415A Adverse effect of fentanyl or fentanyl analogs, initial encounter
CPT/HCPCS: 36415; 71045; 80048; 80053; 80164; 81000; 82436; 82533; 82947; 84133; 84300; 84443; 85025; 87077; 87088; 87186; 94760

== ENCOUNTER → 2022-12-25 | Outpatient (CLI) | payer MEDICARE, MEDICAID ==
[~2022-12-25] MED LIST changes: +AZEL137S11 NSEACH; +B CO1TAB6 PO; +BIOT10004 PO; +BUPR300T98 PO; +CALC3.8S; +CALC500T64 PO; +CHOL200052 PO; +CRAN1CAP10 PO; +DIVA-76 PO; +DOCU100C37 PO; +ESTR42.511 VG; +FAMO20TA5 PO; +FEN12TD TD; +FURO20TA4 PO; +METO50TA7 PO; +MULT-1076 PO; +NAPR-915 PO; +TRIA1TAB3 PO; +VIT1CAPS PO; +VITS1TAB2 PO
--- NOTE | 2022-12-25 14:38 | Diagnostic Imaging Report ---
INDICATION: Recent history of pneumonia COMPARISON: 12/17/2022 FINDINGS: Frontal and lateral views of the chest demonstrate normal heart size and pulmonary vascularity. The lungs are clear. There are no signs of infiltrate, pleural effusions or pneumothoraces. The visualized osseous structures show no acute abnormalities. IMPRESSION: 1. No acute process. No signs of infiltrates, effusions or pneumothoraces. Dictated by: Dictated on workstation # [id number]
== END ==
LOC: RAD 09:46
PROVIDERS: ATTEND Physician Assistant
DX: S22.41XA Multiple fractures of ribs, right side, initial encounter for closed fracture (principal); X58.XXXA Exposure to other specified factors, initial encounter
CPT/HCPCS: 71046

== ENCOUNTER → 2023-04-23 | Outpatient (CLI) | payer MEDICARE, MEDICAID ==
[~2023-04-23] MED LIST changes: -DICL100G13 TP; +DICL100G60 TP
--- NOTE | 2023-04-23 10:14 | Diagnostic Imaging Report ---
INDICATION: Routine screening. COMPARISON: 11/21/2021 and 11/19/2020. TECHNIQUE: 2D and 3D bilateral screening mammography was performed with CAD. FINDINGS: Scattered fibroglandular densities are identified bilaterally. The parenchymal pattern is stable. No mass or malignant-appearing microcalcifications are identified. The axillae are unremarkable. IMPRESSION: No mammographic features suspicious for malignancy are identified. ACR BI-RADS Category 1: Negative. Result letter will be mailed to the patient. Note: At least 10% of breast cancer is not imaged by mammography. Dictated by: Dictated on workstation # [id number]
== END ==
LOC: RAD 08:59
PROVIDERS: ATTEND Family Medicine
DX: Z12.31 Encounter for screening mammogram for malignant neoplasm of breast (principal)
CPT/HCPCS: 77063; 77067